=== PATIENT | male | born 1955 | race Caucasian/White ===

== ENCOUNTER 2023-08-23 09:55 | Outpatient (OUT) | payer MEDICARE, SELFPAY ==
[2023-08-24 14:10] LABS: IgG, Subclass 1 882 mg/dL (248-810); IgG, Subclass 2 364 mg/dL (130-555); IgG, Subclass 3 73 mg/dL (15-102); IgG, Subclass 4 47 mg/dL (2-96); Immunoglobulin G, Qn, Serum 1589 mg/dL (603-1613)
== END 2023-08-23 09:56 | disposition home or self-care (01) ==
PROVIDERS: PCP Internal Medicine
DX: K74.60 Unspecified cirrhosis of liver (principal)
CPT/HCPCS: 36415; 81596; 82784; 82787

== ENCOUNTER 2023-09-12 07:36 | Outpatient (OUT) | payer MEDICARE, SELFPAY ==
--- NOTE | 2023-09-12 07:38 | MR_ITS ---
The [address] [address] Patient Name: LOYD BLANDON MRN: [facility]:[id number] date: 1955 Sex: M Assigned Patient Location: MRI Current Patient Location: MRI Accession/Order Number: [id number] Exam Date: 09/12/2023 08:17 Report Date: 09/12/2023 11:15 At the request of: WARD ESPARZA Procedure: MR head/brain wo con EXAMINATION: MR head/brain wo con HISTORY: Episodic Altered Awareness R40.4, Confusion R41.0 COMPARISON: No relevant comparison available. TECHNIQUE: A variety of imaging planes and parameters were utilized for visualization of suspected pathology. Images were performed without contrast. FINDINGS: CEREBRUM: Prominent T2 hyperintensities within the periventricular and subcortical deep white matter bilaterally favoring chronic small vessel ischemic changes. No edema, hemorrhage, mass, acute infarction, or inappropriate atrophy. CEREBELLUM: No edema, hemorrhage, mass, acute infarction, or inappropriate atrophy. BRAINSTEM: No edema, hemorrhage, mass, acute infarction, or inappropriate atrophy. CSF SPACES: Ventricles, cisterns, and sulci are appropriate for age. No hydrocephalus, subarachnoid hemorrhage, or mass. SKULL: No mass or other significant visible lesion. SINUSES: Limited views demonstrate no significant mucosal thickening or fluid. ORBITS: Limited views are unremarkable. OTHER: Negative. MR/MR head/brain wo con IMPRESSION: 1. Age consistent atrophy and prominent chronic small vessel ischemic changes, likely age related. 2. No mass, infarction, or other specific findings to account for patient's symptoms. Electronically authenticated by: WARD FERRER Date: 09/12/2023 11:15
--- OUTSIDE RECORDS SUMMARY | 2023-09-12 07:38 | XMS_ITS | CCD ---
Author Organization [facility] CliniSyme Care Team Providers Care Sea Foam Kiss Maker Name Role Phone CHEMA, TANISHA Unavailable Unavailable TEODORA, ROYCE Unavailable Unavailable CHEMA, TANISHA Unavailable Unavailable COY BLANCHARD Unavailable Unavailable CHEMA, TANISHA Unavailable Unavailable CHEMA, TANISHA Unavailable Unavailable CHEMA, TANISHA Unavailable Unavailable MD Lex Carroll Attending Provider JUDITH Delgado Primary Care Provider Loran Ortega Unavailable TALA Ortega Attending Provider JUDITH Delgado Primary Care Provider TALA Ortega Attending Provider Rusty Delgado MD Unavailable Rusty Delgado MD Primary Care Provider [phone] MD Minh Griffith Attending Provider [phone] DO Janneth Villegas Attending Provider [phone] JUDITH Delgado Primary Care Provider TALA Ortega Attending Provider MD Minh Griffith Attending Provider DO Janneth Villegas Attending Provider RUSTY DELGADO Primary Care Physician Janneth Villegas H Referring Unavailable Jourdan ARRIAZA Attending Unavailable Janneth Villegas Admitting Unavailable Janneth Villegas Attending Unavailable Rusty Delgado Primary Care Unavailable Lex Carroll Admitting Unavailable Lex Carroll Attending Unavailable Rusty Delgado Primary Care Unavailable Lex Carroll Admitting Unavailable Lex Carroll Attending Unavailable Lamont Delgadoel Primary Care Unavailable Lamont Delgadoel Primary Care Unavailable Lorna Ortega Admitting Unavailable ScLorna person Attending Unavailable DelgadoLamontel Primary Care Unavailable ScLorna person Admitting Unavailable ScLorna person Attending Unavailable DannyLamontel Primary Care Unavailable ScLorna person Admitting Unavailable ScLorna person Attending Unavailable Lex Carroll Attending Unavailable DelgadoLamontel Primary Care Unavailable Lex Carroll Admitting Unavailable Itzkovick, Janneth Admitting Unavailable Itdaphne, Janneth Attending Unavailable DelgadoLamontel Primary Care Unavailable Minh Griffith Admitting UnavailMinh Romero Attending Unavailsaleem e DelgadoLamontel Primary Care Unavailable ARIAS JESUS Attending Unavailable ANN MARIE, ARIAS Referring Unavailable ANN MARIE, ARIAS Attending Unavailable JESUS, ARIAS Admitting Unavailable ITZCATALINA, JANNETH H Attending Unavailable LORNA ORTEGA Referring Unavailable ITZKOVICK, JANNETH H Attending Unavailable ITZKOVICK, JANNETH H Attending Unavailable ITDAPHNE, JANNETH H Attending Unavailable FABY ECHEVARRIA Attending Unavailable WARD ESPARZA Attending Unavailable FABY ECHEVARRIA Referring Unavailable RUSTY DELGADO Attending Unavailable RUSTY DELGADO Referring Unavailable RUSTY DELGADO Attending Unavailable WARD ESPARZA Referring Unavailable Allergies Allergy Classification Reported Allergen(s) Allergy Type Date of Onset Reaction(s) Facility (1 source) sulfamethoxazole / trimethoprim; Translations: [SULFAMETHOXAZOLE-TR IMETHOPRIM] Drug Allergy 5 [facility] Repository Medications Current Medications Medication Drug Class(es) Dates Sig (Normalized) Sig (Original) atropine sulfate 0.025 mg / diphenoxylate hydrochloride 2.5 mg oral tablet (13 sources) Anticholinergic, Cholinergic Muscarinic Antagonist, Antidiarrheal Start: 07-05-2023 take 1 tablet by mouth three times daily Diphenoxylate-At ropine Active 1 TAB PO Three times daily July 05, 2023 12:00am Start: 06-02-2023 End: 06-13-2023 take 1 tablet by mouth three times daily as needed Diphenoxylate-Atropine Discontinued 1 TAB PO Three times daily June 02, 2023 1:00am June 13, 2023 12:59pm FreeTextSi tablet as needed Orally Four times a day; Note: Source Status: Taking; Refills: 11; Qty: 120 Tablet; Provider: Shannon Syed Start: 02-09-2023 take 1 tablet by vald th every six hours Diphenoxylate-Atropine 2.5-0.025 MG 1 tablet as needed Orally Four times a day for 30 days Jan, Active take 1 tablet by vlad th three times daily as needed for diarrhea diphenoxylate-atropine (Lomotil) 2.5-0.025 MG tablet Take 1 tablet by mouth 3 (three) times a day as needed for diarrhea 0 Active baclofen 20 mg oral tablet (1 source) gamma-Aminobutyric Acid-ergic Agonist Start: 07-05-2023 take 20 mg by mouth once daily at bedtime Baclofen Active 20 MG PO Daily at bedtime July 05, 2023 12:00am calcium carbonate 1250 mg / cholecalciferol 125 unt oral tablet (2 sources) Vitamin D Start: 06-02-2023 take 1 tablet by mouth once daily Calcium Carbonate-Vitami n D3 Active 1 TAB PO Daily June 02, 2023 1:00am dicyclomine hydrochloride 20 mg oral tablet (8 sources) Anticholinergic Start: 11-10-2022 End: 05-18-2023 take 1 tablet by mouth every eight hours Dicyclomine HCl 20 MG 1 tablet Orally Three times a day for 90 days Mar, Active esomeprazole 40 mg delayed release oral capsule (14 sources) Proton Pump Inhibitor Start: 06-02-2023 Esomeprazole Magnesium Active 40 MG PO Twice daily June 02, 2023 1:00am FreeTextSi capsule 30 minutes before morning meal & 1 capsule in the evening Orally twice a day; Note: Source Status: Taking; Refills: 12; Provider: Shannon Syed Start: 09-28-2022 Esomeprazole M agnesium 40 MG 1 capsule 30 minutes before morning meal & 1 capsule in the evening Orally twice a day for 30 days Sep, Active famotidine 40 mg oral tablet (16 sources) Histamine-2 Receptor Antagonist Start: 06-02-2023 End: 07-05-2023 take 1 tablet by mouth twice daily Famotidine Active 40 MG PO Twice daily 60 July 05, 2023 9:29am FreeTextSi tablet Orally Twice a day; Note: Source Status: Taking; Refills: 5; Qty: 60 Tablet; Provider: Shannon Syed Start: 04-12-2023 take 1 tablet by vlad th in the morning famotidine (Pepcid) 40 MG tablet Take 40 mg by mouth in the morning and 40 mg before bedtime. 0 05/10/2023 Active Start: 11-10-2022 End: 05-18-2023 take 1 tablet by mouth at bedtime famotidine (Pepcid) 20 MG tablet Take 20 mg by mouth at bedtime. 0 11/10/2022 05/18/2023 Discontinued furosemide 40 mg oral tablet (11 sources) Loop Diuretic Start: 06-02-2023 take 1 tablet by mouth once daily in the morning Furosemide Active 40 MG PO Every morning June 02, 2023 1:00am FreeTextSi tablet Orally Once a day; Note: Source Status: Taking; Refills: 11; Provider: Shannon Syed Start: 04-12-2023 take 1 tablet by vlad th once daily furosemide (Lasix) 40 MG tablet TAKE 1 TABLET BY MOUTH EVERY DAY FOR 30 DAYS 0 05/10/2023 Active ibuprofen 800 mg oral tablet (2 sources) Nonsteroidal Anti-inflammatory Drug Start: 06-02-2023 take 800 mg by mouth three times daily Ibuprofen Active 800 MG PO Three times daily June 02, 2023 1:00am lansoprazole 30 mg delayed release oral capsule (1 source) Proton Pump Inhibitor Start: 07-05-2023 take 30 mg by mouth twice daily Lansoprazole Active 30 MG PO Twice daily 60 July 05, 2023 12:00am lisinopril 20 mg oral tablet (18 sources) Angiotensin Converting Enzyme Inhibitor Start: 09-19-2022 take 20 mg by mouth once daily in the morning Lisinopril Active 20 MG PO Every morning September 19, 2022 12:00am Multiple Vitamins-Minerals (Multi For Him) tablet (3 sources) Multiple Vitamins-Minerals (Multi For Him) tablet Daily. 0 Active Multivitamin (Daily Multi-Vitamin) tablet (2 sources) Start: 06-02-2023 take 1 tablet by mouth once daily Multivitamin (Daily Multi-Vitamin) tablet Active 1 TAB PO Daily June 02, 2023 1:00am Start: 06-02-2023 take 1 tablet by vlad th once daily Multivitamin (Daily Multi-Vitamin) tablet Active 1 TAB PO Daily June 02, 2023 12:00am ondansetron 4 mg oral tablet (2 sources) Serotonin-3 Receptor Antagonist Start: 07-05-2023 take 4 mg by mouth three times daily Ondansetron Hcl Active 4 MG PO Three times daily July 05, 2023 9:32am Start: 07-05-2023 End: 07-05-2023 take 4 mg by mouth once daily Ondansetron Hcl Disconti nued 4 MG PO Daily July 05, 2023 12:00am July 05, 2023 9:32am spironolactone 100 mg oral tablet (11 sources) Aldosterone Antagonist Start: 06-02-2023 take 1 tablet by mouth once daily in the morning Spironolactone Active 100 MG PO Every morning June 02, 2023 1:00am FreeTextSi tablet Orally Once a day; Note: Source Status: Taking; Refills: 11; Provider: Shannon Syed Start: 04-12-2023 take 1 tablet by vlad th once daily spironolactone (Aldactone) 100 MG tablet TAKE 1 TABLET BY MOUTH EVERY DAY FOR 30 DAYS 0 05/10/2023 Active Completed/Discontinued Medications Medication Drug Class(es) Dates Sig (Normalized) Sig (Original) acetaminophen 325 mg / oxyCODONE hydrochloride 5 mg oral tablet (1 source) Opioid Agonist Start: 06-13-2023 End: 07-05-2023 take 1 tablet by mouth every six hours Oxycodone-Acetami nophen (Percocet) 5-325 mg tablet Discontinued 1 TAB PO Q6H 28 7 June 13, 2023 July 05, 2023 9:01am [id number] 333-133-5 MG per tablet (1 source) End: 05-18-2023 calcium-magnesium -zinc 333-133-5 MG per tablet Take 1 tablet by mouth in the morning and 1 tablet at noon and 1 tablet in the evening. Take with meals. 0 05/18/2023 Discontinued hydroCHLOROthiazide 25 mg / triamterene 37.5 mg oral capsule (8 sources) Potassium-spari ng Diuretic, Thiazide Diuretic Start: 06-13-2023 End: 07-05-2023 Triamterene-Dane chlorothiazid Discontinued CAP June 13, 2023 1:00am July 05, 2023 9:01am Start: 09-19-2022 End: 06-02-2023 Triamterene-Hydrochlorothiaz id Discontinued 1 CAP PO As Directed September 19, 2022 12:00am June 02, 2023 11:15am End: 05-18-2023 take 1 tablet by mouth in the morning triamterene-hydrochlorothiazide (Maxzide -25) 37.5-25 MG tablet Take 1 tablet by mouth in the morning. 0 05/18/2023 Discontinued metoprolol tartrate 25 mg oral tablet (9 sources) beta-Adrenergic Nikunj Start: 09-19-2022 End: 06-02-2023 take 25 mg by mouth twice daily Metoprolol Tartrate Discontinued 25 MG PO Twice daily September 19, 2022 12:00am June 02, 2023 11:11am Metoprolol Tartr ate Active omeprazole 40 mg delayed release oral capsule (12 sources) Proton Pump Inhibitor Start: 09-21-2022 End: 06-02-2023 take 40 mg by mouth twice daily Omeprazole Discontinued 40 MG PO Twice daily 60 September 21, 2022 12:00am June 02, 2023 11:13am Start: 09-19-2022 End: 09-21-2022 take 40 mg by mouth once daily Omeprazole Discontinued 40 MG PO Daily September 19, 2022 12:00am September 21, 2022 8:23am Problems Active Problems Problem Classification Problem Date Documented Da te Episodic/Chronic Abdominal pain (4 sources) Lower abdominal pain, unspecified; Translations: [Epigastric pain] Onset: 4 Episodic Anal and rectal conditions (6 sources) Anal fissure; Translations: [Anal fissure, unspecified] Onset: 4 05-18-2023 Episodic Cataract (12 sources) Nuclear senile cataract; Translations: [Age-related nuclear cataract, bilateral] Onset: 3 11-17-2022 Chronic Coagulation and hemorrhagic disorders (12 sources) Thrombocytopenic disorder; Translations: [Thrombocytopenia, unspecified] Onset: 3 11-17-2022 Chronic Deficiency and other anemia (2 sources) Anemia, unspecified; Translations: [Anemia, unspecified] Onset: 4 Episodic Diabetes mellitus without complication (12 sources) Type 2 diabetes mellitus without complication; Translations: [Type 2 diabetes mellitus without complications] Onset: 3 11-17-2022 Chronic Disorders of lipid metabolism (12 sources) Dyslipidemia; Translations: [Hyperlipidemia, unspecified] Onset: 3 11-17-2022 Chronic Esophageal disorders (20 sources) Recinos's esophagus; 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] Onset: 3 Chronic Essential hypertension (15 sources) Benign essential hypertension; Translations: [Essential (primary) hypertension] Onset: 3 Resolved: 3 11-17-2022 Chronic Hemorrhoids (1 source) Internal hemorrhoids grade II; Translations: [Second degree hemorrhoids] 06-13-2023 Episodic Nausea and vomiting (11 sources) Nausea; Translations: [Nausea] Onset: 4 Episodic Osteoporosis (3 sources) Osteoporosis; Translations: [Age-related osteoporosis without current pathological fracture] Onset: 3 03-21-2023 Chronic Other and unspecified benign neoplasm (12 sources) History of polyp of colon; Translations: [Personal history of colonic polyps] Onset: 3 03-21-2023 Episodic Other connective tissue disease (3 sources) Muscle pain; Translations: [Myalgia, unspecified site] Onset: 3 03-16-2023 Episodic Other disorders of stomach and duodenum (1 source) Disorder of function of stomach; Translations: [Disease of stomach and duodenum, unspecified] 07-05-2023 Episodic Other disorders of stomach and duodenum (1 source) Disease of stomach and duodenum, unspecified; Translations: [Dyspepsia and other specified disorders of function of stomach] 07-05-2023 Episodic Other eye disorders (12 sources) 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; 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, left eye] Onset: 3 11-17-2022 Chronic Other gastrointestinal disorders (9 sources) H/O: gastrointestinal disease; Translations: [Personal history of other diseases of the digestive system] Episodic Other gastrointestinal disorders (1 source) Diarrhea, unspecified Episodic Other gastrointestinal disorders (6 sources) Flatulence, eructation and gas pain; Translations: [Abdominal distension (gaseous)] Episodic Other gastrointestinal disorders (6 sources) Loose stool; Translations: [Other fecal abnormalities] Episodic Other gastrointestinal disorders (3 sources) Abdominal distension (gaseous); Translations: [Abdominal distension (gaseous)] Onset: 4 Episodic Other liver diseases (12 sources) Steatosis of liver; Translations: [Fatty (change of) liver, not elsewhere classified] Onset: 3 11-17-2022 Chronic Other liver diseases (2 sources) Fatty (change of) liver, not elsewhere classified; Translations: [Fatty (change of) liver, not elsewhere classified] Onset: 3 Chronic Other liver diseases (8 sources) Cirrhosis of liver; Translations: [Unspecified cirrhosis of liver] 07-05-2023 Chronic Other liver diseases (6 sources) Unspecified cirrhosis of liver; Translations: [Cirrhosis of liver without mention of alcohol] Onset: 3 Chronic Other nutritional; endocrine; and metabolic disorders (12 sources) Metabolic syndrome X; Translations: [Metabolic syndrome] Onset: 3 11-17-2022 Chronic Residual codes; unclassified (6 sources) Edema; Translations: [Localized edema] Episodic Residual codes; unclassified (6 sources) Early satiety; Translations: [Early satiety] Episodic Residual codes; unclassified (1 source) Localized edema Episodic Residual codes; unclassified (3 sources) Early satiety; Translations: [Early satiety] Onset: 4 Episodic Retinal detachments; defects; vascular occlusion; and retinopathy (12 sources) Epiretinal membrane; 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, bilateral] Onset: 3 11-17-2022 Chronic Unclassified (1 source) Unknown / UNK(Unknown) Onset: 7 Unclassified (1 source) Second degree hemorrhoids; Translations: [Second degree hemorrhoids] Onset: 4 Unclassified (1 source) Encounter for preprocedural laboratory examination; Translations: [Encounter for preprocedural laboratory examination] Onset: 4 Unclassified (1 source) Recinos's esophagus without dysplasia; 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] Onset: 3 Past or Other Problems Problem Classification Problem Date Documented Da te Episodic/Chronic Abdominal hernia (3 sources) Incisional hernia; Translations: [Incisional hernia without obstruction or gangrene] Onset: 12-06-2012 03-21-2023 Episodic Other connective tissue disease (1 source) Pain in left toe(s); Translations: [Pain in left toe(s)] Onset: 01-04-2017 Episodic Other screening for suspected conditions (not mental disorders or infectious disease) (1 source) Other specified abnormal findings of blood chemistry; Translations: [Other specified abnormal findings of blood chemistry] Onset: 11-03-2022 Episodic Residual codes; unclassified (12 sources) Insomnia; Translations: [Insomnia, unspecified] Onset: 11-17-2022 11-17-2022 Episodic Results Test Name Value Interpretation Reference Range Facility Orders Onlyon 08-28-2023 Orders Only [id number] Ambrosio Blandon 1955 M Date Provider Department Center 08/28/2023 [id number], HISTORICAL [facility] No family history on file [facility] Orders Onlyon 08-24-2023 Orders Only [id number] Ambrosio Blandon 1955 M Date Provider Department Center 08/24/2023 [id number], HISTORICAL [facility] No family history on file [facility] 29on 08-09-2023 29 Addended by: ARIAS JESUS on: 08/09/2023 12:50 PM Modules accepted: Orders Normal [facility] Orders Onlyon 08-09-2023 Orders Only [id number] Ambrosio Blandon 1955 M Date Provider Department Center 08/09/2023 JASON COFFEY [facility] No family history on file [facility] Office Visiton 08-07-2023 Follow-up visit [id number] Ambrosio Blandon 1955 M Date Provider Department Center 08/07/2023 [id number] JESUS [facility] No family history on file Level of Service:81828 [place] OFFICE/OUTPATIENT NEW LOW MDM 30 MINUTES (GC) Reason for Visit and Comments: New Patient [632] Weight Loss [943790] - 30 pound weight loss since . Pt recently had surgery for 3 polyps removed and 1 hemorrhoid removal. Dyskenisia of esophgaus [Other] Nausea [70] Vomiting [120] - Pt has a urge to but does not vomit. Normal [facility] Mayito 06-13-2023 L Specimen: [id number] Received: 06/14/23 Status: HUSAM Coffey Num: [id number] Spec Type: Surgical Subm Dr: Janneth Villegas DO Tissues: A Hemorrhoids (HEMORRHOID 9:00) Procedures: HE, Gross/Micro L3 Age/ Patient Sex Location Account Attending Physician Charles Blandon 67/M [place] [id number] Janneth Villegas DO SPEC NUM: [id number] RECD: 06/14/23 STATUS: HUSAM COFFEY NUM: [id number] WEN: 06/13/[address]: Janneth Villegas DO ENTERED: 06/14/[address]: SPEC TYPE: Surgical DEPT: S ORDERED: HE, Gross/Micro L3 ORDERED: HE, Gross/Micro L3 Pathological Diagnosis Hemorrhoid at 9:00, resection: Features consistent with hemorrhoid. Clinical Information Rectal pain, anal fissure Gross Description Received in formalin labeled with the patient's name, date of and hemorrhoid at 9:00 are 2 pink-anderson soft tissue fragments, 1.9 x 1.2 x 0.4 cm and 3 x 2.5 x 1.5 cm. Both fragments demonstrate pink-anderson glistening mucosa. The largest fragment demonstrates what appears to be a discrete transition to more bazzi velvety mucosa. There are no suspicious surface lesions identified. Sectioning demonstrates soft cut surfaces with diffusely dilated blood-filled spaces. Grain Blender sections are submitted in 1 cassette as follows: A1 - 1 customer service representative section from each fragment to demonstrate change in mucosal types of the largest fragment CPT Codes 66161 Specimen: [id number] Received: 06/14/23 Status: HUSAM Coffey Num: [id number] Spec Type: Surgical Subm Dr: Janneth Villegas DO Tissues: A Hemorrhoids (HEMORRHOID 9:00) Procedures: Clark BARBOSA/Andi L3 Patient: Charles Blandon [id number] (Continued) Signed (signature on file) Linette Bean MD 06/27/232238 Normal [facility] Basic Metabolic Panelon 02 Anion gap [Moles/Vol] 13.5 mmol/L Normal 6.0-15.0 [facility] Comment on above: Performed By: #### C BC, BMP #### [facility] [address] [place] [address] [place] Calcium [Mass/Vol] 8.6 mg/dL Normal 8.6-10.3 [facility] Comment on above: Result Comment: PERF ORMED BY: [place] [address] PATHOLOGIST STONE BREAKER CLARK LEARY M.D. Performed By: #### C BC, BMP #### [facility] [address] [place] [address] [place] Chloride [Moles/Vol] 96 mmol/L Low 98-107 [facility] Comment on above: Performed By: #### C BC, BMP #### [facility] [address] [place] [address] [place] CO2 [Moles/Vol] 27.3 mmol/L Normal 21.0-31.0 [facility] Comment on above: Performed By: #### C BC, BMP #### [facility] [address] [place] [address] [place] Creatinine [Mass/Vol] 1.07 mg/dL Normal 0.70-1.30 [facility] Comment on above: Performed By: #### C BC, BMP #### [facility] [address] [place] [address] [place] GFR/1.73 sq M.predicted MDRD (S/P/Bld) [Vol rate/Area] mL/min/{1.73_m2} Normal [facility] Comment on above: Performed By: #### C BC, BMP #### [facility] [address] [place] [address] [place] Glucose [Mass/Vol] 132 mg/dL High 70-100 [facility] Comment on above: Result Comment: [place] Glucose Reference Range is dependent on time and content of last meal. Glucose of more than 200 mg/dL in a nonstressed, ambulatory subject supports the diagnosis of Diabetes Mellitus. ADA recommended reference range Performed By: #### C BC, BMP #### [facility] [address] Potassium [Moles/Vol] 4.8 mmol/L Normal 3.5-5.1 [facility] Comment on above: Performed By: #### C PEGGY, BMP #### [facility] [address] Sodium [Moles/Vol] 132 mmol/L Low 136-145 [facility] Comment on above: Performed By: #### C PEGGY, BMP #### [facility] [address] Urea nitrogen [Mass/Vol] 12 mg/dL Normal 7-25 [facility] Comment on above: Performed By: #### C PEGGY, BMP #### [facility] [address] Basophils Auto (Bld) [#/Vol] Ordered By: Janneth Villegas on 06-02-2023 Basophils (Bld) [#/Vol] 0.0 10*3/uL 0.0-0.2 [facility] Basophils/100 WBC Auto (Bld) Ordered By: Janneth Villegas on 06-02-2023 Basophils/100 WBC (Bld) 0.7 % . [facility] Calcium [Mass/volume] in Ser um or PlasmaOrdered By: Janneth Villegas on 06-02-2023 Calcium [Mass/Vol] 8.6 mg/dL 8.6-10.3 [facility] Carbon dioxide, total [Moles /volume] in Serum or PlasmaOrdered By: Janneth Villegas on 06-02-2023 CO2 [Moles/Vol] 27.3 mmol/L 21.0-31.0 [facility] Chloride [Moles/volume] in S mateo or PlasmaOrdered By: Janneth Villegas on 06-02-2023 Chloride [Moles/Vol] 96 mmol/L 98-107 [facility] Complete Blood Count Auto Di ffon 06-02-2023 Basophils (Bld) [#/Vol] 0.0 10*3/uL Normal 0.0-0.2 [facility] Comment on above: Result Comment: PERF ORMED BY: [place] [address] PATHOLOGIST STONE BREAKER CLARK LEARY M.D. Performed By: #### C BC, BMP #### [address] Basophils/100 WBC (Bld) 0.7 % Normal . [facility] Comment on above: Performed By: #### C BC, BMP #### [address] Eosinophils (Bld) [#/Vol] 0.1 10*3/uL Normal 0.0-0.45 [facility] Comment on above: Performed By: #### C BC, BMP #### [address] Eosinophils/100 WBC (Bld) 1.9 % Normal . [facility] Comment on above: Performed By: #### C BC, BMP #### [address] Erythrocyte distribution width (RBC) [Ratio] 13.8 % Normal 12.0-14.8 [facility] Comment on above: Performed By: #### C BC, BMP #### [address] Hematocrit (Bld) [Volume fraction] 35.5 % Low 38.8-50.0 [facility] Comment on above: Performed By: #### C BC, BMP #### [address] Hemoglobin (Bld) [Mass/Vol] 12.5 g/dL Low 13.0-17.0 [facility] Comment on above: Performed By: #### C BC, BMP #### [address] Lymphocytes (Bld) [#/Vol] 0.7 10*3/uL Low 1.00-4.8 [facility] Comment on above: Performed By: #### C BC, BMP #### [address] Lymphocytes/100 WBC (Bld) 13.2 % Normal . [facility] Comment on above: Performed By: #### C BC, BMP #### [address] MCH (RBC) [Entitic mass] 36.2 pg High 27.5-35.2 [facility] Comment on above: Performed By: #### C BC, BMP #### [address] MCV (RBC) [Entitic vol] 102.9 fL High 83.5-101 [facility] Comment on above: Performed By: #### C BC, BMP #### [address] Mean Corpuscular HGB Conc 35.2 g/dL Normal 32.5-35.6 [facility] Comment on above: Performed By: #### C BC, BMP #### [address] Monocytes (Bld) [#/Vol] 0.9 10*3/uL High 0.0-0.8 [facility] Comment on above: Performed By: #### C BC, BMP #### [address] Monocytes/100 WBC (Bld) 15.7 % Normal . [facility] Comment on above: Performed By: #### C BC, BMP #### [address] Neutrophils (Bld) [#/Vol] 3.9 10*3/uL Normal 1.8-7.7 [facility] Comment on above: Performed By: #### C BC, BMP #### [address] Neutrophils/100 WBC (Bld) 68.5 % Normal . [facility] Comment on above: Performed By: #### C BC, BMP #### [address] NRBC% 0.1 /100{WBC} Normal 0-0.5 [facility] Comment on above: Performed By: #### C PEGGY, BMP #### [facility] [address] Platelet mean volume (Bld) [Entitic vol] 8.1 fL Normal 6.6-10.1 [facility] Comment on above: Performed By: #### C PEGGY, BMP #### [facility] [address] Platelets (Bld) [#/Vol] 153 10*3/uL Normal 150-450 [facility] Comment on above: Performed By: #### C PEGGY, BMP #### [facility] [address] RBC (Bld) [#/Vol] 3.45 10*6/uL Low 3.90-5.60 [facility] Comment on above: Performed By: #### C PEGGY, BMP #### [facility] [address] WBC (Bld) [#/Vol] 5.7 10*3/uL Normal 4.1-10.5 [facility] Comment on above: Performed By: #### C PEGGY, BMP #### [address] Creatinine [Mass/volume] in Serum or PlasmaOrdered By: Janneth Villegas on 06-02-2023 Creatinine [Mass/Vol] 1.07 mg/dL 0.70-1.30 [facility] ECG 12 lead ECGon 06-02-2023 ECG 12 lead ECG [facility] [place] [address] [place] [address] Electrocardiograph Report Signed Patient: Charles Blandon MR#: [id number] 66 : 1955 Acct:[id number] Age/Sex: 67 / M ADM Date: 06/02/23 Loc: Room: Type: [facility] Attending Dr: Janneth Villegas DO Ordering Provider: Janneth Villegas DO Date of Service: 06/02/23 ECG/ECG 12 lead ECG: surgery 06/13/23 Copies to: Test Reason : Blood Pressure : / mmHG Vent. Rate : 090 BPM Atrial Rate : 090 BPM P-R Int : 150 ms QRS Dur : 090 ms QT Int : 390 ms P-R-T Axes : 049 063 041 degrees QTc Int : 477 ms Normal sinus rhythm with sinus arrhythmia Normal ECG No previous ECGs available Confirmed by Gurpreet Dyson ([id number]) on 06/02/2023 6:21:10 PM Referred By: DANNY VILLEGAS Electronically Signed By:Gurpreet Dyson Transcribed By: MUS Signed By Gurpreet Dyson MD 06/02/23 182 Normal [facility] Eosinophils Auto (Bld) [#/Vo l]Ordered By: Janneth Villegas on 06-02-2023 Eosinophils (Bld) [#/Vol] 0.1 10*3/uL 0.0-0.45 [facility] Eosinophils/100 WBC Auto (Bl d)Ordered By: Janneth Villegas on 06-02-2023 Eosinophils/100 WBC (Bld) 1.9 % . [facility] Erythrocyte distribution wid th Auto (RBC) [Ratio]Ordered By: Janneth Villegas on 06-02-2023 Erythrocyte distribution width (RBC) [Ratio] 13.8 % 12.0-14.8 [facility] Glucose [Mass/volume] in Ser um or PlasmaOrdered By: Janneth Villegas on 06-02-2023 Glucose [Mass/Vol] 132 mg/dL 70-100 [facility] Comment on above: ADA recommended refe rence rangeRandom Glucose Reference Range is dependent on time and content of last meal. Glucose of more than 200 mg/dL in a nonstressed, ambulatory subject supports the diagnosis of Diabetes Mellitus. Hematocrit Auto (Bld) [Volum e fraction]Ordered By: Janneth Villegas on 06-02-2023 Hematocrit (Bld) [Volume fraction] 35.5 % 38.8-50.0 [facility] Hemoglobin [Mass/volume] in BloodOrdered By: Janneth Villegas on 06-02-2023 Hemoglobin (Bld) [Mass/Vol] 12.5 g/dL 13.0-17.0 [facility] Leukocytes [#/volume] correc jamila for nucleated erythrocytes in Blood by Automated counOrdered By: Janneth Villegas on 06-02-2023 WBC corrected for nucl RBC Auto (Bld) [#/Vol] 5.7 10*3/uL 4.1-10.5 [facility] Lymphocytes Auto (Bld) [#/Vo l]Ordered By: Janneth Villegas on 06-02-2023 Lymphocytes (Bld) [#/Vol] 0.7 10*3/uL 1.00-4.8 [facility] Lymphocytes/100 WBC Auto (Bl d)Ordered By: Janneth Villegas on 06-02-2023 Lymphocytes/100 WBC (Bld) 13.2 % . [facility] MCH Auto (RBC) [Entitic mass ]Ordered By: Janneth Villegas on 06-02-2023 MCH (RBC) [Entitic mass] 36.2 pg 27.5-35.2 [facility] MCHC Auto (RBC) [Mass/Vol]Or dered By: Janneth Villegas on 06-02-2023 MCHC (RBC) [Mass/Vol] 35.2 g/dL 32.5-35.6 [facility] MCV Auto (RBC) [Entitic vol] Ordered By: Janneth Villegas on 06-02-2023 MCV (RBC) [Entitic vol] 102.9 fL 83.5-101 [facility] Monocytes Auto (Bld) [#/Vol] Ordered By: Janneth Villegas on 06-02-2023 Monocytes (Bld) [#/Vol] 0.9 10*3/uL 0.0-0.8 [facility] Monocytes/100 WBC Auto (Bld) Ordered By: Janneth Villegas on 06-02-2023 Monocytes/100 WBC (Bld) 15.7 % . [facility] Neutrophils Auto (Bld) [#/Vo l]Ordered By: Janneth Villegas on 06-02-2023 Neutrophils (Bld) [#/Vol] 3.9 10*3/uL 1.8-7.7 [facility] Neutrophils/100 WBC Auto (Bl d)Ordered By: Janneth Villegas on 06-02-2023 Neutrophils/100 WBC (Bld) 68.5 % . [facility] No Panel InformationOrdered By: Janneth Villegas on 06-02-2023 Estimated GFR (CKD-EPI) > 60.0 mL/Min [facility] Creatinine Clearance (Chem N/A [facility] Nucleated erythrocytes [Pres ence] in Blood by Automated countOrdered By: Janneth Villegas on 06-02-2023 Nucleated RBC Auto Ql (Bld) 0.1 /100{WBC} 0-0.5 [facility] Platelet mean volume Auto (B ld) [Entitic vol]Ordered By: Janneth Villegas on 06-02-2023 Platelet mean volume (Bld) [Entitic vol] 8.1 fL 6.6-10.1 [facility] Platelets Auto (Bld) [#/Vol] Ordered By: Janneth Villegas on 06-02-2023 Platelets (Bld) [#/Vol] 153 10*3/uL 150-450 [facility] Potassium [Moles/volume] in Serum or PlasmaOrdered By: Janneth Villegas on 06-02-2023 Potassium [Moles/Vol] 4.8 mmol/L 3.5-5.1 [facility] RBC Auto (Bld) [#/Vol]Ordere d By: Janneth Villegas on 06-02-2023 RBC (Bld) [#/Vol] 3.45 10*6/uL 3.90-5.60 [facility] Serum or plasma anion gap de terminationOrdered By: Janneth Villegas on 06-02-2023 Anion gap [Moles/Vol] 13.5 mmol/L 6.0-15.0 [facility] Sodium [Moles/volume] in Ser um or PlasmaOrdered By: Janneth Villegas on 06-02-2023 Sodium [Moles/Vol] 132 mmol/L 136-145 [facility] Urea nitrogen [Mass/volume] in Serum or PlasmaOrdered By: Janneth Villegas on 06-02-2023 Urea nitrogen [Mass/Vol] 12 mg/dL 7-25 [facility] WBC Auto (Bld) [#/Vol]Ordere d By: Janneth Villegas on 06-02-2023 WBC (Bld) [#/Vol] 5.7 10*3/uL 4.1-10.5 [facility] [place] gastric emptying studyon 04-26-2023 [place] gastric emptying study [facility] [place] [address] Nuclear Medicine Report Signed Patient: Charles Blandon MR#: [id number] 66 : 1955 Acct:[id number] Age/Sex: 67 / M ADM Date: 04/26/23 Loc: [place] Room: Type: [facility] Attending Dr: Lorna Ortega APRN Copies to: Morales Alvarez Jr, DO Ryan M Scovanner, APRN Ordering Provider: Lorna Ortega APRN Date of Service: 04/26/23 [facility] gastric emptying study: Nausea;Early satiety GASTRIC EMPTYING STUDY: CLINICAL HISTORY: Worsening gagging for one year and nausea. FINDINGS: Following the oral ingestion of 1 mCi Tc 99m labeled sulfur colloid mixed with oatmeal, anterior imaging of the abdomen was performed out to 90 minutes. There is appropriate emptying of the stomach on the static and dynamic images. A time/activity curve was generated. The T 1/2 for gastric emptying is 11 minutes. [facility] gastric emptying study IMPRESSION: NO SCINTIGRAPHIC EVIDENCE OF GASTROPARESIS. Impression dictated by: Morales Alvarez Jr., D.O.04/26/2023 10:18 AM Dictation Location: [place] [address] Transcribed By: [facility] 04/26/23 1018 Dictated By: Morales Alvarez Jr, DO 04/26/23 1017 Signed By: 04/26/23 1018 Normal [facility] Albumin [Mass/volume] in Ser um or Plasma by Bromocresol green (BCG) dye binding methoOrdered By: Lorna Ortega on 04-12-2023 Albumin BCG dye [Mass/Vol] 3.0 g/dL 3.5-5.7 [facility] Bilirubin.total [Mass/volume ] in Serum or PlasmaOrdered By: Lorna Ortega on 04-12-2023 Bilirubin [Mass/Vol] 1.3 mg/dL 0.3-1.0 [facility] Comment on above: Samples from patient s who have taken Naproxen have shown spurious elevation in Total Bilirubin levels. A metabolite of Naproxen, O-desmethylnaproxen, has been shown to interfere with the Donato method for measuring Total Bilirubin. Calcium [Mass/volume] in Ser um or PlasmaOrdered By: Lorna Ortega on 04-12-2023 Calcium [Mass/Vol] 8.3 mg/dL 8.6-10.3 [facility] Carbon dioxide, total [Moles /volume] in Serum or PlasmaOrdered By: Lorna Ortega on 04-12-2023 CO2 [Moles/Vol] 27.3 mmol/L 21.0-31.0 [facility] Comprehensive Metabolic Pane mayito 04-12-2023 Albumin [Mass/Vol] 3.692145 g/dL Low 3.5-5.7 g/dL [facility] Other Bilirubin [Mass/Vol] 1.1930656 mg/dL High 0.3- 1.0 mg/dL [facility] Other Calcium [Mass/Vol] 8.1423368 mg/dL Low 8.6-10 .3 mg/dL [facility] Other CO2 [Moles/Vol] 27.19689819 mmol/L Normal 21.0-3 1.0 mmol/L [facility] Other Creatinine [Mass/Vol] 0.95806277 mg/dL Normal 0. 70-1.30 mg/dL [facility] Other Potassium [Moles/Vol] 5.70831165 mmol/L Normal 3 .5-5.1 mmol/L [facility] Other Protein [Mass/Vol] 6.441913 g/dL Low 6.4-8.9 g/dL [facility] Other Comprehensive Metabolic Panel 3.3 g/dL [facility]leg[facility] Other Albumin [Mass/Vol] 3.0 g/dL Low 3.5-5.7 [facility] Comment on above: Order Comment: Reaso n for Exam Cirrhosis of liver Performed By: #### C MP ####[place] [id number] [address] Anion gap [Moles/Vol] 9.8 mmol/L Normal 6.0-15.0 [facility] Comment on above: Order Comment: Reaso n for Exam Cirrhosis of liver Performed By: #### C MP ####[place] [id number] [facility] Bilirubin [Mass/Vol] 1.3 mg/dL High 0.3-1.0 [facility] Comment on above: Order Comment: Reaso n for Exam Cirrhosis of liver Result Comment: Samp les from patients who have taken Naproxen have shown spurious elevation in Total Bilirubin levels. A metabolite of Naproxen, O-desmethylnaproxen, has been shown to interfere with the Jendrassik-Grof method for measuring Total Bilirubin. Performed By: #### C MP ####[place] [id number] [facility] Calcium [Mass/Vol] 8.3 mg/dL Low 8.6-10.3 [facility] Comment on above: Order Comment: Reaso n for Exam Cirrhosis of liver Performed By: #### C MP ####[place] [id number] [facility] CO2 [Moles/Vol] 27.3 mmol/L Normal 21.0-31.0 [facility] Comment on above: Order Comment: Reaso n for Exam Cirrhosis of liver Performed By: #### C MP ####[address] [address] [facility] Creatinine [Mass/Vol] 0.81 mg/dL Normal 0.70-1.30 [facility] Comment on above: Order Comment: Reaso n for Exam Cirrhosis of liver Performed By: #### C MP ####[address] [address] [facility] GFR/1.73 sq M.predicted MDRD (S/P/Bld) [Vol rate/Area] mL/min/{1.73_m2} Normal [facility] Other Comment on above: Order Comment: Reaso n for Exam Cirrhosis of liver Performed By: #### C MP ####[address] [address] [facility] Globulin (S) [Mass/Vol] 3.3 g/dL Normal [facility] Comment on above: Order Comment: Reaso n for Exam Cirrhosis of liver Performed By: #### C MP ####[address] [address] [facility] Potassium [Moles/Vol] 5.1 mmol/L Normal 3.5-5.1 [facility] Comment on above: Order Comment: Reaso n for Exam Cirrhosis of liver Performed By: #### C MP ####[address] [address] [facility] Protein [Mass/Vol] 6.3 g/dL Low 6.4-8.9 [facility] Comment on above: Order Comment: Reaso n for Exam Cirrhosis of liver Performed By: #### C MP ####[address] [address] [facility] Comprehensive Metabolic Pane lOrdered By: Lorna Ortega on 04-12-2023 Albumin/Globulin [Mass ratio] 0.9 {ratio} Normal [facility] Comment on above: Order Comment: Reaso n for Exam Cirrhosis of liver Performed By: #### C MP ####[address] [address] [facility] ALP [Catalytic activity/Vol] 158 U/L High 34-104 [facility] Comment on above: Order Comment: Reaso n for Exam Cirrhosis of liver Result Comment: PERF ORMED BY: [facility] [address] [place] [id number] PATHOLOGIST STONE BREAKER CLARK LEARY M.D. Performed By: #### C MP ####[place] [address] [place] [address]70 [facility] ALT [Catalytic activity/Vol] 35 U/L Normal 7-52 [facility] Comment on above: Order Comment: Reaso n for Exam Cirrhosis of liver Performed By: #### C MP ####[place] [id number] [facility] AST [Catalytic activity/Vol] 76 U/L High 13-39 [facility] Comment on above: Order Comment: Reaso n for Exam Cirrhosis of liver Performed By: #### C MP ####[place] [id number] [place] Chloride [Moles/Vol] 95 mmol/L Low 98-107 [facility] Comment on above: Order Comment: Reaso n for Exam Cirrhosis of liver Performed By: #### C MP ####[place] [id number] [facility] Glucose [Mass/Vol] 94 mg/dL Normal 70-100 [facility] Comment on above: ADA recommended refe rence rangeRandom Glucose Reference Range is dependent on time and content of last meal. Glucose of more than 200 mg/dL in a nonstressed, ambulatory subject supports the diagnosis of Diabetes Mellitus. Order Comment: Reaso n for Exam Cirrhosis of liver Result Comment: [place] om Glucose Reference Range is dependent on time and content of last meal. Glucose of more than 200 mg/dL in a nonstressed, ambulatory subject supports the diagnosis of Diabetes Mellitus. ADA recommended reference range Performed By: #### C MP ####[place] [id number] [place] Sodium [Moles/Vol] 127 mmol/L Low 136-145 [facility] Comment on above: Order Comment: Reaso n for Exam Cirrhosis of liver Performed By: #### C MP ####[facility] [address] [place] [address] [place] Urea nitrogen [Mass/Vol] 9 mg/dL Normal 7-25 [facility] Comment on above: Order Comment: Reaso n for Exam Cirrhosis of liver Performed By: #### C MP ####[facility] [address] [place] [address] [facility] Creatinine [Mass/volume] in Serum or PlasmaOrdered By: Lorna Ortega on 04-12-2023 Creatinine [Mass/Vol] 0.81 mg/dL 0.70-1.30 [facility] Globulin Calc (S) [Mass/Vol] Ordered By: Lorna Ortega on 04-12-2023 Globulin (S) [Mass/Vol] 3.3 g/dL [facility] No Panel InformationOrdered By: Lorna Ortega on 04-12-2023 Estimated GFR (CKD-EPI) > 60.0 mL/Min [facility] Creatinine Clearance (Chem N/A [facility] Potassium [Moles/volume] in Serum or PlasmaOrdered By: Lorna Ortega on 04-12-2023 Potassium [Moles/Vol] 5.1 mmol/L 3.5-5.1 [facility] Protein [Mass/volume] in Ser um or PlasmaOrdered By: Lorna Ortega on 04-12-2023 Protein [Mass/Vol] 6.3 g/dL 6.4-8.9 [facility] Serum or plasma anion gap de terminationOrdered By: Lorna Ortega on 04-12-2023 Anion gap [Moles/Vol] 9.8 mmol/L 6.0-15.0 [facility] XR RIBS 2 VIEWS LEFT WITH CH EST ANTEROPOSTERIORon 03-24-2023 XR RIBS 2 VIEWS LEFT WITH CHEST ANTEROPOSTERIOR CLINICAL HISTORY: see dx COMPARISON: NONE. STUDY: Left rib x-rays FINDINGS: The cardiomediastinal silhouette is unremarkable. The lungs are free of infiltrates effusions or consolidations. There are no lytic or sclerotic bone lesions. There are nondisplaced fractures of the left lateral eighth, ninth, and 10th ribs. The soft tissues are within normal limits, there are no radiopaque foreign bodies.. IMPRESSION: THERE ARE NONDISPLACED FRACTURES OF THE LEFT EIGHTH-10TH RIBS. ELECTRONICALLY SIGNED BY: Nick Beverly MD Normal Not Available US liveron 11-15-2022 liver [facility] [place] [address] [place], [place] [id number] Ultrasound Report Signed Patient: Charles Blandon MR#: [id number] 66 : 1955 Acct:[id number] Age/Sex: 67 / M ADM Date: 11/15/22 Loc: Room: Type: [facility] Attending Dr: Lorna Ortega [employer]ATOR Ordering Provider: Lorna Ortega APRN Date of Service: 11/15/22 US/US liver: Fatty liver Copies to: Lorna Ortega APRN Liver ultrasound HISTORY: Fatty liver. Cholecystectomy COMPARISON: None Negative ultrasound Tubbs's sign reported. COMMON BILE DUCT: Mild prominence likely secondary to cholecystectomy. LIVER CONTOUR: Lobular contour.. LIVER PARENCHYMA: Coarsened echotexture of the liver. HEPATIC LESION: None INTRAHEPATIC BILIARY DUCTAL DILATATION No ductal dilatation identified. Gallbladder absent. Pancreas: Obscured by overlying bowel gas. PORTAL VEIN: Normal blood flow. Liver size: Normal No RIGHT hydronephrosis identified. US/US liver IMPRESSION: Findings of liver cirrhosis. No hepatic mass. Cholecystectomy. Mild prominence of common bile duct likely secondary to cholecystectomy. Impression dictated by: Albin [place] M.D.11/15/2022 12:48 PM Dictation Location: [place] [address] Tech: Tran Queen Transcribed By: ROLAND 11/15/22 1248 Dictated By: Albin [place]illela DO 11/15/22 1245 Signed By: 11/15/22 1248 Normal [facility] LEE ANN with Reflexon 09-21-2022 LEE ANN with Reflex Negative Normal Negative [facility] Comment on above: Result Comment: Perf ormed at: CB - [facility] [address] [id number] Sales Agent Insurance: John Tang PhD, Phone: [phone] Performed By: #### C MP, CBC, PT, LIPID ####[facility] [id number] [place] [id number] [facility]#### HCV RX PCR, SMAB, ALPHA PHEN, LEE ANN CHOICE, HBSAG, HBCAB, MITOM2, CERULOP, HBSAB ####[facility] , Actin smooth muscle IgG Ab [ Units/volume] in SerumOrdered By: Lex Carroll on 09-21-2022 Actin smooth muscle IgG Qn (S) 8 Units 0-19 [facility] Comment on above: Negative 0 - 19 Weak positive 20 - 30 Moderate to strong positive >30 Actin Antibodies are found in 52-85% of patients with autoimmune hepatitis or chronic active hepatitis and in 22% of patients with primary biliary cirrhosis. Alanine aminotransferase [En zymatic activity/volume] in Serum or PlasmaOrdered By: Lex Carroll on 09-21-2022 ALT [Catalytic activity/Vol] 30 U/L 7-52 [facility] Albumin [Mass/volume] in Ser um or Plasma by Bromocresol green (BCG) dye binding methoOrdered By: Lex Carroll on 09-21-2022 Albumin BCG dye [Mass/Vol] 3.6 g/dL 3.5-5.7 [facility] Alkaline phosphatase [Enzyma tic activity/volume] in Serum or PlasmaOrdered By: Lex Carroll on 09-21-2022 ALP [Catalytic activity/Vol] 96 U/L 34-104 [facility] [id number] Phenotyp janna 09-21-2022 Alpha 1 Anti-Trypsin 205 mg/dL High 101-187 [facility] Comment on above: Performed By: #### C MP, CBC, PT, LIPID ####[facility] [place] [id number] [facility]#### HCV RX PCR, SMAB, ALPHA PHEN, LEE ANN CHOICE, HBSAG, HBCAB, MITOM2, CERULOP, HBSAB ####[facility] , Phenotype (P1) MM Normal . [facility] Comment on above: Result Comment: Phen otype Population A-1-AT Concentration* Incidence % % of MM (Typical Range) MM 86.5% 100% (96 - 189) MS 8.0% 86% (83 - 161) MZ 3.9% 61% (60 - 111) FM 0.4% 100% (93 - 191) SZ 0.3% 41% (42 - 75) SS 0.1% 64% (62 - 119) ZZ 0.05% 19% (16 - 38) FS 0.05% 70% (70 - 128) FZ Unknown 46% (44 - 88) FF Unknown Unknown *A-1-AT concentration in the homozygous MM phenotype is taken as the reference normal. Percent deficiency in each phenotype is reported relative to this reference. Ranges used to confirm phenotype. Performed at: [facility] [address] [id number] Sales Agent Insurance: John Tang PhD, Phone: [phone] Performed at: [facility] [address] [id number] Sales Agent Insurance: George Brown MD, Phone: [phone] Performed By: #### C MP, CBC, PT, LIPID ####[facility] [id number]#### HCV RX PCR, SMAB, ALPHA PHEN, LEE ANN CHOICE, HBSAG, HBCAB, MITOM2, CERULOP, HBSAB ####[facility] , Aspartate aminotransferase [ Enzymatic activity/volume] in Serum or PlasmaOrdered By: Lex Carroll on 09-21-2022 AST [Catalytic activity/Vol] 55 U/L 13-39 [facility] Basophils Auto (Bld) [#/Vol] Ordered By: Lex Carroll on 09-21-2022 Basophils (Bld) [#/Vol] 0.0 10*3/uL 0.0-0.2 [facility] Basophils/100 WBC Auto (Bld) Ordered By: Lex Carroll on 09-21-2022 Basophils/100 WBC (Bld) 0.9 % . [facility] Bilirubin.total [Mass/volume ] in Serum or PlasmaOrdered By: Lex Carroll on 09-21-2022 Bilirubin [Mass/Vol] 0.9 mg/dL 0.3-1.0 [facility] Calcium [Mass/volume] in Ser um or PlasmaOrdered By: Lex Carroll on 09-21-2022 Calcium [Mass/Vol] 8.7 mg/dL 8.6-10.3 [facility] Carbon dioxide, total [Moles /volume] in Serum or PlasmaOrdered By: Lex Carroll on 09-21-2022 CO2 [Moles/Vol] 26.9 mmol/L 21.0-31.0 [facility] Ceruloplasminon 09-21-2022 Ceruloplasmin 22.4 mg/dL Normal 16.0-31.0 [facility] Comment on above: Result Comment: Perf ormed at: CB - [facility] [address] [id number] Sales Agent Insurance: John Tang PhD, Phone: [phone] PERFORMED BY: [facility] [address] [place] [address] PATHOLOGIST STONE BREAKER CLARK LEARY M.D. Performed By: #### C MP, CBC, PT, LIPID ####[facility] [id number]#### HCV RX PCR, SMAB, ALPHA PHEN, LEE ANN CHOICE, HBSAG, HBCAB, MITOM2, CERULOP, HBSAB ####[facility] , Chloride [Moles/volume] in S mateo or PlasmaOrdered By: Lex Carroll on 09-21-2022 Chloride [Moles/Vol] 108 mmol/L 98-107 [facility] Cholesterol [Mass/volume] in Serum or PlasmaOrdered By: Lex Carroll on 09-21-2022 Cholesterol [Mass/Vol] 175 mg/dL 140-200 [facility] Comment on above: Chol less than 200 m g/dl low riskChol 201-239 mg/dl borderline riskChol 240 mg/dl and greater high risk Cholesterol in LDL Calc [Mas s/Vol]Ordered By: Lex Carroll on 09-21-2022 Cholesterol in LDL [Mass/Vol] 94 mg/dL 0-100 [facility] Comment on above: LDL ATP III CLASSIFI CATIONLDL less than 100 mg/dL OptimalLDL 100-129 mg/dL Near or above optimalLDL 130-159 mg/dL Borderline highLDL 160-189 mg/dL HighLDL greater than 189 mg/dL Very high Cholesterol in VLDL Calc [Ma ss/Vol]Ordered By: Lex Carroll on 09-21-2022 Cholesterol in VLDL [Mass/Vol] 21 mg/dL [facility] Complete Blood Count Auto Di ffon 09-21-2022 Basophils (Bld) [#/Vol] 0.0 10*3/uL Normal 0.0-0.2 [facility] Comment on above: Result Comment: PERF ORMED BY: [place] [address] PATHOLOGIST STONE BREAKER CLARK LEARY M.D. Performed By: #### C MP, CBC, PT, LIPID #### [address] #### HCV RX PCR, SMAB, ALPHA PHEN, LEE ANN CHOICE, HBSAG, HBCAB, MITOM2, CERULOP, HBSAB #### [facility] , Basophils/100 WBC (Bld) 0.9 % Normal . [facility] Comment on above: Performed By: #### C MP, CBC, PT, LIPID #### [address] #### HCV RX PCR, SMAB, ALPHA PHEN, LEE ANN CHOICE, HBSAG, HBCAB, MITOM2, CERULOP, HBSAB #### [facility] , Eosinophils (Bld) [#/Vol] 0.2 10*3/uL Normal 0.0-0.45 [facility] Comment on above: Performed By: #### C MP, CBC, PT, LIPID #### [place] [address] [place] #### HCV RX PCR, SMAB, ALPHA PHEN, LEE ANN CHOICE, HBSAG, HBCAB, MITOM2, CERULOP, HBSAB #### [facility] , Eosinophils/100 WBC (Bld) 3.6 % Normal . [facility] Comment on above: Performed By: #### C MP, CBC, PT, LIPID #### [address] #### HCV RX PCR, SMAB, ALPHA PHEN, LEE ANN CHOICE, HBSAG, HBCAB, MITOM2, CERULOP, HBSAB #### [facility] , Erythrocyte distribution width (RBC) [Ratio] 14.2 % Normal 12.0-14.8 [facility] Comment on above: Performed By: #### C MP, CBC, PT, LIPID #### [address] #### HCV RX PCR, SMAB, ALPHA PHEN, LEE ANN CHOICE, HBSAG, HBCAB, MITOM2, CERULOP, HBSAB #### [facility] , Hematocrit (Bld) [Volume fraction] 37.5 % Low 38.8-50.0 [facility] Comment on above: Performed By: #### C MP, CBC, PT, LIPID #### [address] #### HCV RX PCR, SMAB, ALPHA PHEN, LEE ANN CHOICE, HBSAG, HBCAB, MITOM2, CERULOP, HBSAB #### [facility] , Hemoglobin (Bld) [Mass/Vol] 12.9 g/dL Low 13.0-17.0 [facility] Comment on above: Performed By: #### C MP, CBC, PT, LIPID #### [address] #### HCV RX PCR, SMAB, ALPHA PHEN, LEE ANN CHOICE, HBSAG, HBCAB, MITOM2, CERULOP, HBSAB #### [facility] , Lymphocytes (Bld) [#/Vol] 1.1 10*3/uL Normal 1.00-4.8 [facility] Comment on above: Performed By: #### C MP, CBC, PT, LIPID #### [place] [address] [place] #### HCV RX PCR, SMAB, ALPHA PHEN, LEE ANN CHOICE, HBSAG, HBCAB, MITOM2, CERULOP, HBSAB #### [facility] , Lymphocytes/100 WBC (Bld) 27.1 % Normal . [facility] Comment on above: Performed By: #### C MP, CBC, PT, LIPID #### [address] #### HCV RX PCR, SMAB, ALPHA PHEN, LEE ANN CHOICE, HBSAG, HBCAB, MITOM2, CERULOP, HBSAB #### [facility] , MCH (RBC) [Entitic mass] 35.0 pg Normal 27.5-35.2 [facility] Comment on above: Performed By: #### C MP, CBC, PT, LIPID #### [address] #### HCV RX PCR, SMAB, ALPHA PHEN, LEE ANN CHOICE, HBSAG, HBCAB, MITOM2, CERULOP, HBSAB #### [facility] , MCV (RBC) [Entitic vol] 101.9 fL High 83.5-101 [facility] Comment on above: Performed By: #### C MP, CBC, PT, LIPID #### [address] #### HCV RX PCR, SMAB, ALPHA PHEN, LEE ANN CHOICE, HBSAG, HBCAB, MITOM2, CERULOP, HBSAB #### [facility] , Mean Corpuscular HGB Conc 34.4 g/dL Normal 32.5-35.6 [facility] Comment on above: Performed By: #### C MP, CBC, PT, LIPID #### [place] [address] [place] #### HCV RX PCR, SMAB, ALPHA PHEN, LEE ANN CHOICE, HBSAG, HBCAB, MITOM2, CERULOP, HBSAB #### [facility] , Monocytes (Bld) [#/Vol] 0.5 10*3/uL Normal 0.0-0.8 [facility] Comment on above: Performed By: #### C MP, CBC, PT, LIPID #### [place] [address] [place] #### HCV RX PCR, SMAB, ALPHA PHEN, LEE ANN CHOICE, HBSAG, HBCAB, MITOM2, CERULOP, HBSAB #### [facility] , Monocytes/100 WBC (Bld) 11.3 % Normal . [facility] Comment on above: Performed By: #### C MP, CBC, PT, LIPID #### [address] #### HCV RX PCR, SMAB, ALPHA PHEN, LEE ANN CHOICE, HBSAG, HBCAB, MITOM2, CERULOP, HBSAB #### [facility] , Neutrophils (Bld) [#/Vol] 2.4 10*3/uL Normal 1.8-7.7 [facility] Comment on above: Performed By: #### C MP, CBC, PT, LIPID #### [address] #### HCV RX PCR, SMAB, ALPHA PHEN, LEE ANN CHOICE, HBSAG, HBCAB, MITOM2, CERULOP, HBSAB #### [facility] , Neutrophils/100 WBC (Bld) 57.1 % Normal . [facility] Comment on above: Performed By: #### C MP, CBC, PT, LIPID #### [place] [address] [place] #### HCV RX PCR, SMAB, ALPHA PHEN, LEE ANN CHOICE, HBSAG, HBCAB, MITOM2, CERULOP, HBSAB #### [facility] , NRBC% 0.2 /100{WBC} Normal 0-0.5 [facility] Comment on above: Performed By: #### C MP, CBC, PT, LIPID #### [place] [address] [place] #### HCV RX PCR, SMAB, ALPHA PHEN, LEE ANN CHOICE, HBSAG, HBCAB, MITOM2, CERULOP, HBSAB #### [facility] , Platelet mean volume (Bld) [Entitic vol] 9.8 fL Normal 6.6-10.1 [facility] Comment on above: Performed By: #### C MP, CBC, PT, LIPID #### [place] [address] [place] #### HCV RX PCR, SMAB, ALPHA PHEN, LEE ANN CHOICE, HBSAG, HBCAB, MITOM2, CERULOP, HBSAB #### [facility] , Platelets (Bld) [#/Vol] 91 10*3/uL Low 150-450 [facility] Comment on above: Performed By: #### C MP, CBC, PT, LIPID #### [place] [address] [place] #### HCV RX PCR, SMAB, ALPHA PHEN, LEE ANN CHOICE, HBSAG, HBCAB, MITOM2, CERULOP, HBSAB #### [facility] , RBC (Bld) [#/Vol] 3.68 10*6/uL Low 3.90-5.60 [facility] Comment on above: Performed By: #### C MP, CBC, PT, LIPID #### [place] [address] [place] #### HCV RX PCR, SMAB, ALPHA PHEN, LEE ANN CHOICE, HBSAG, HBCAB, MITOM2, CERULOP, HBSAB #### [facility] , WBC (Bld) [#/Vol] 4.2 10*3/uL Normal 4.1-10.5 [facility] Comment on above: Performed By: #### C MP, CBC, PT, LIPID #### [place] [address] [place] #### HCV RX PCR, SMAB, ALPHA PHEN, LEE ANN CHOICE, HBSAG, HBCAB, MITOM2, CERULOP, HBSAB #### [facility] , Comprehensive Metabolic Pane mayito 09-21-2022 Albumin [Mass/Vol] 3.6 g/dL Normal 3.5-5.7 [facility] Comment on above: Performed By: #### C MP, CBC, PT, LIPID #### [address] #### HCV RX PCR, SMAB, ALPHA PHEN, LEE ANN CHOICE, HBSAG, HBCAB, MITOM2, CERULOP, HBSAB #### [facility] , Albumin/Globulin [Mass ratio] 1.3 {ratio} Normal [facility] Comment on above: Performed By: #### C MP, CBC, PT, LIPID #### [address] #### HCV RX PCR, SMAB, ALPHA PHEN, LEE ANN CHOICE, HBSAG, HBCAB, MITOM2, CERULOP, HBSAB #### [facility] , ALP [Catalytic activity/Vol] 96 U/L Normal 34-104 [facility] Comment on above: Performed By: #### C MP, CBC, PT, LIPID #### [address] #### HCV RX PCR, SMAB, ALPHA PHEN, LEE ANN CHOICE, HBSAG, HBCAB, MITOM2, CERULOP, HBSAB #### [facility] , ALT [Catalytic activity/Vol] 30 U/L Normal 7-52 [facility] Comment on above: Performed By: #### C MP, CBC, PT, LIPID #### [place] [address] [place] #### HCV RX PCR, SMAB, ALPHA PHEN, LEE ANN CHOICE, HBSAG, HBCAB, MITOM2, CERULOP, HBSAB #### [facility] , Anion gap [Moles/Vol] 11.1 mmol/L Normal 6.0-15.0 [facility] Comment on above: Performed By: #### C MP, CBC, PT, LIPID #### [address] #### HCV RX PCR, SMAB, ALPHA PHEN, LEE ANN CHOICE, HBSAG, HBCAB, MITOM2, CERULOP, HBSAB #### [facility] , AST [Catalytic activity/Vol] 55 U/L High 13-39 [facility] Comment on above: Performed By: #### C MP, CBC, PT, LIPID #### [facility] [address] [place] [address] [place] #### HCV RX PCR, SMAB, ALPHA PHEN, LEE ANN CHOICE, HBSAG, HBCAB, MITOM2, CERULOP, HBSAB #### [facility] , Bilirubin [Mass/Vol] 0.9 mg/dL Normal 0.3-1.0 [facility] Comment on above: Performed By: #### C MP, CBC, PT, LIPID #### [place] [address] [place] #### HCV RX PCR, SMAB, ALPHA PHEN, LEE ANN CHOICE, HBSAG, HBCAB, MITOM2, CERULOP, HBSAB #### [facility] , Calcium [Mass/Vol] 8.7 mg/dL Normal 8.6-10.3 [facility] Comment on above: Performed By: #### C MP, CBC, PT, LIPID #### [facility] [address] [place] [address] [place] #### HCV RX PCR, SMAB, ALPHA PHEN, LEE ANN CHOICE, HBSAG, HBCAB, MITOM2, CERULOP, HBSAB #### [facility] , Chloride [Moles/Vol] 108 mmol/L High 98-107 [facility] Comment on above: Performed By: #### C MP, CBC, PT, LIPID #### [facility] [address] [place] [address] [place] #### HCV RX PCR, SMAB, ALPHA PHEN, LEE ANN CHOICE, HBSAG, HBCAB, MITOM2, CERULOP, HBSAB #### [facility] , CO2 [Moles/Vol] 26.9 mmol/L Normal 21.0-31.0 [facility] Comment on above: Performed By: #### C MP, CBC, PT, LIPID #### [place] [address] [place] #### HCV RX PCR, SMAB, ALPHA PHEN, LEE ANN CHOICE, HBSAG, HBCAB, MITOM2, CERULOP, HBSAB #### [facility] , Creatinine [Mass/Vol] 0.90 mg/dL Normal 0.70-1.30 [facility] Comment on above: Performed By: #### C MP, CBC, PT, LIPID #### [address] #### HCV RX PCR, SMAB, ALPHA PHEN, LEE ANN CHOICE, HBSAG, HBCAB, MITOM2, CERULOP, HBSAB #### [facility] , Creatinine Clr Calc Pharmacy 88.23 Normal [facility] Comment on above: Performed By: #### C MP, CBC, PT, LIPID #### [address] #### HCV RX PCR, SMAB, ALPHA PHEN, LEE ANN CHOICE, HBSAG, HBCAB, MITOM2, CERULOP, HBSAB #### [facility] , GFR/1.73 sq M.predicted MDRD (S/P/Bld) [Vol rate/Area] mL/min/{1.73_m2} Normal [facility] Comment on above: Performed By: #### C MP, CBC, PT, LIPID #### [place] [address] [place] #### HCV RX PCR, SMAB, ALPHA PHEN, LEE ANN CHOICE, HBSAG, HBCAB, MITOM2, CERULOP, HBSAB #### [facility] , Globulin (S) [Mass/Vol] 2.8 g/dL Normal [facility] Comment on above: Performed By: #### C MP, CBC, PT, LIPID #### [place] [address] [place] #### HCV RX PCR, SMAB, ALPHA PHEN, LEE ANN CHOICE, HBSAG, HBCAB, MITOM2, CERULOP, HBSAB #### [facility] , Glucose [Mass/Vol] 123 mg/dL High 70-100 [facility] Comment on above: Result Comment: [place] Glucose Reference Range is dependent on time and content of last meal. Glucose of more than 200 mg/dL in a nonstressed, ambulatory subject supports the diagnosis of Diabetes Mellitus. ADA recommended reference range Performed By: #### C MP, CBC, PT, LIPID #### [place] [address] [place] #### HCV RX PCR, SMAB, ALPHA PHEN, LEE ANN CHOICE, HBSAG, HBCAB, MITOM2, CERULOP, HBSAB #### [facility] , Potassium [Moles/Vol] 5.0 mmol/L Normal 3.5-5.1 [facility] Comment on above: Performed By: #### C MP, CBC, PT, LIPID #### [address] #### HCV RX PCR, SMAB, ALPHA PHEN, LEE ANN CHOICE, HBSAG, HBCAB, MITOM2, CERULOP, HBSAB #### [facility] , Protein [Mass/Vol] 6.4 g/dL Normal 6.4-8.9 [facility] Comment on above: Performed By: #### C MP, CBC, PT, LIPID #### [place] [address] [place] #### HCV RX PCR, SMAB, ALPHA PHEN, LEE ANN CHOICE, HBSAG, HBCAB, MITOM2, CERULOP, HBSAB #### [facility] , Sodium [Moles/Vol] 141 mmol/L Normal 136-145 [facility] Comment on above: Performed By: #### C MP, CBC, PT, LIPID #### [place] [address] [place] #### HCV RX PCR, SMAB, ALPHA PHEN, LEE ANN CHOICE, HBSAG, HBCAB, MITOM2, CERULOP, HBSAB #### [facility] , Urea nitrogen [Mass/Vol] 9 mg/dL Normal 7-25 [facility] Comment on above: Performed By: #### C MP, CBC, PT, LIPID #### [facility] [address] #### HCV RX PCR, SMAB, ALPHA PHEN, LEE ANN CHOICE, HBSAG, HBCAB, MITOM2, CERULOP, HBSAB #### [facility] , Creatinine [Mass/volume] in Serum or PlasmaOrdered By: Lex Carroll on 09-21-2022 Creatinine [Mass/Vol] 0.90 mg/dL 0.70-1.30 [facility] Eosinophils Auto (Bld) [#/Vo l]Ordered By: Lex Carroll on 09-21-2022 Eosinophils (Bld) [#/Vol] 0.2 10*3/uL 0.0-0.45 [facility] Eosinophils/100 WBC Auto (Bl d)Ordered By: Lex Carroll on 09-21-2022 Eosinophils/100 WBC (Bld) 3.6 % . [facility] Erythrocyte distribution wid th Auto (RBC) [Ratio]Ordered By: Lex Carroll on 09-21-2022 Erythrocyte distribution width (RBC) [Ratio] 14.2 % 12.0-14.8 [facility] Globulin Calc (S) [Mass/Vol] Ordered By: Lex Carroll on 09-21-2022 Globulin (S) [Mass/Vol] 2.8 g/dL [facility] Glucose [Mass/volume] in Ser um or PlasmaOrdered By: Lex Carroll on 09-21-2022 Glucose [Mass/Vol] 123 mg/dL 70-100 [facility] Comment on above: ADA recommended refe rence rangeRandom Glucose Reference Range is dependent on time and content of last meal. Glucose of more than 200 mg/dL in a nonstressed, ambulatory subject supports the diagnosis of Diabetes Mellitus. Hematocrit Auto (Bld) [Volum e fraction]Ordered By: Lex Carroll on 09-21-2022 Hematocrit (Bld) [Volume fraction] 37.5 % 38.8-50.0 [facility] Hemoglobin [Mass/volume] in BloodOrdered By: Lex Carroll on 09-21-2022 Hemoglobin (Bld) [Mass/Vol] 12.9 g/dL 13.0-17.0 [facility] Hep C Ab wRfx to Qnt PCRon 0 09-21-2022 Hepatitis C Virus Antibody Non-Reactive Normal Non Reactive [facility] Comment on above: Performed By: #### C MP, CBC, PT, LIPID ####[place] [id number] [address]#### HCV RX PCR, SMAB, ALPHA PHEN, LEE ANN CHOICE, HBSAG, HBCAB, MITOM2, CERULOP, HBSAB ####[facility] , Interpretation Hepatitis C Normal . [facility] Comment on above: Result Comment: Not infected with HCV unless early or acute infection is suspected (which may be delayed in an immunocompromised individual), or other evidence exists to indicate HCV infection. Performed By: #### C MP, CBC, PT, LIPID ####[address]#### HCV RX PCR, SMAB, ALPHA PHEN, LEE ANN CHOICE, HBSAG, HBCAB, MITOM2, CERULOP, HBSAB ####[facility] , Hepatitis B Core Antibodyon 09-21-2022 Hepatitis B Core Antibody Negative Normal Negative [facility] Comment on above: Result Comment: Perf ormed at: [facility] [place] [id number] Sales Agent Insurance: John Tang PhD, Phone: [phone] Performed By: #### C MP, CBC, PT, LIPID ####[address]#### HCV RX PCR, SMAB, ALPHA PHEN, LEE ANN CHOICE, HBSAG, HBCAB, MITOM2, CERULOP, HBSAB ####[facility] , Hepatitis B Surface Antibody on 09-21-2022 Hepatitis B Surface Antibody Non-Reactive Normal . [facility] Comment on above: Result Comment: Non Reactive: Inconsistent with immunity, less than 10 mIU/mL Reactive: Consistent with immunity, greater than 9.9 mIU/mL Performed By: #### C MP, CBC, PT, LIPID ####[facility] [id number]#### HCV RX PCR, SMAB, ALPHA PHEN, LEE ANN CHOICE, HBSAG, HBCAB, MITOM2, CERULOP, HBSAB ####[facility] , Hepatitis B Surface Antigeno n 09-21-2022 HBsAg Screen Negative Normal Negative [facility] Comment on above: Result Comment: PERF ORMED BY: [facility] [address] [place] [address] PATHOLOGIST STONE BREAKER CLARK LEARY M.D. Performed By: #### C MP, CBC, PT, LIPID ####[place] [address] [address]#### HCV RX PCR, SMAB, ALPHA PHEN, LEE ANN CHOICE, HBSAG, HBCAB, MITOM2, CERULOP, HBSAB ####[facility] , Hepatitis B virus surface Ag [Presence] in Serum or Plasma by ImmunoassayOrdered By: Lex Carroll on 09-21-2022 HBV surface Ag IA Ql Negative Negative [facility] Hepatitis C virus IgG Ab [Pr esence] in Serum or Plasma by ImmunoassayOrdered By: Lex Carroll on 09-21-2022 HCV IgG IA Ql Non-Reactive Non Reactive [facility] Mayito 09-21-2022 L ----- Specimen: [id number] Received: 09/21/22 Status: HUSAM Coffey Num: [id number] Spec Type: Surgical Subm Dr: Lex Carroll MD Tissues: A Esophagus Biopsy (ESOPHAGEAL ISLAND) Procedures: HE/2, Gross/Micro L4 Age/ Patient Sex Location Account Attending Physician Charles Blandon 67/M [id number] Lex Carroll MD SPEC NUM: [id number] RECD: 09/21/22 STATUS: HUSAM COFFEY NUM: [id number] WEN: 09/21/22- [facility] DR: Lex Carroll MD ENTERED: 09/21/[address] [facility] [address]: SHERLY TYPE: Surgical DEPT: S ORDERED: HE/2, Gross/Micro L4 ORDERED: HE/2, Gross/Micro L4 Pathological Diagnosis Esophagus, island, biopsy: - Chronic gastroesophagitis. - Negative for Recinos?s esophagus (H E stain). - Negative for dysplasia. - Negative for eosinophilic esophagitis. Clinical Information Recinos's, rule out Recinos's Gross Description Received in formalin labeled with the patient's name, number and esophageal island is one fragment of soft bazzi tissue measuring 0.2 cm. Entirely submitted in one cassette labeled A1. Microscopic Description Two H E slides reviewed. The microscopic examination confirms the diagnosis. Specimen: [id number] Received: 09/21/22 Status: HUSAM Coffey Num: [id number] Spec Type: Surgical Subm Dr: Lex Carroll MD Tissues: A Esophagus Biopsy (ESOPHAGEAL ISLAND) Procedures: HE/2, Gross/Micro L4 Patient: JamiaCharles [id number] (Continued) Specimen: [id number] Received: 09/21/22 (Continued) Signed (signature on file) Ame Benson MD 09/22/22 0955 Specimen: [id number] Received: 09/21/22 Status: HUSAM Coffey Num: [id number] Spec Type: Surgical Subm Dr: Lex Carroll MD Tissues: A Esophagus Biopsy (ESOPHAGEAL ISLAND) Procedures: HE/2, Gross/Micro L4 Patient: Charles Blandon [id number] (Continued) Specimen: Received: 09/21/22 (Continued) CPT Codes 66431 Specimen: [id number] Received: 09/21/22 Status: HUSAM Coffey Num: [id number] Spec Type: Surgical Subm Dr: Lex Carroll MD Tissues: A Esophagus Biopsy (ESOPHAGEAL ISLAND) Procedures: HE/2, Gross/Micro L4 Patient: JamiaCharles [id number] (Continued) Signed (signature on file) Ame Benson MD 09/22/22 0955 Normal [facility] Laboratory - CoagulationOrde red By: Lex Carroll on 09-21-2022 PT Coag (PPP) [Time] 13.0 s 9.0-12.9 [facility] Leukocytes [#/volume] correc jamila for nucleated erythrocytes in Blood by Automated counOrdered By: Lex Carroll on 09-21-2022 WBC corrected for nucl RBC Auto (Bld) [#/Vol] 4.2 10*3/uL 4.1-10.5 [facility] Lipid Panelon 09-21-2022 Cholesterol [Mass/Vol] 175 mg/dL Normal 140-200 [facility] Comment on above: Result Comment: Chol less than 200 mg/dl low risk Chol 201-239 mg/dl borderline risk Chol 240 mg/dl and greater high risk Performed By: #### C MP, CBC, PT, LIPID #### [facility] [address] #### HCV RX PCR, SMAB, ALPHA PHEN, LEE ANN CHOICE, HBSAG, HBCAB, MITOM2, CERULOP, HBSAB #### [facility] , Cholesterol in HDL [Mass/Vol] 60 mg/dL Normal 23-92 [facility] Comment on above: Result Comment: HDL CHOL ATP-III CLASSIFICATION Cardiovascular Risk HDL > or equal to 60 mg/dL LOW HDL < 40 mg/dL HIGH Performed By: #### C MP, CBC, PT, LIPID #### [address] #### HCV RX PCR, SMAB, ALPHA PHEN, LEE ANN CHOICE, HBSAG, HBCAB, MITOM2, CERULOP, HBSAB #### [facility] , Cholesterol.total/Chol esterol in HDL [Mass ratio] 2.9 {ratio} Normal <5.0 [facility] Comment on above: Result Comment: PERF ORMED BY: [place] [address] PATHOLOGIST STONE BREAKER CLARK LEARY M.D. Performed By: #### C MP, CBC, PT, LIPID #### [address] #### HCV RX PCR, SMAB, ALPHA PHEN, LEE ANN CHOICE, HBSAG, HBCAB, MITOM2, CERULOP, HBSAB #### [facility] , LDL Cholesterol,Calculated 94 mg/dL Normal 0-100 [facility] Comment on above: Result Comment: LDL ATP III CLASSIFICATION LDL less than 100 mg/dL Optimal LDL 100-129 mg/dL Near or above optimal LDL 130-159 mg/dL Borderline high LDL 160-189 mg/dL High LDL greater than 189 mg/dL Very high Performed By: #### C MP, CBC, PT, LIPID #### [place] [address] [place] #### HCV RX PCR, SMAB, ALPHA PHEN, LEE ANN CHOICE, HBSAG, HBCAB, MITOM2, CERULOP, HBSAB #### [facility] , Triglyceride w/Reflex 107 mg/dL Normal 0-149 [facility] Comment on above: Result Comment: TRIG ATP III CLASSIFICATION TRIG less than 150 mg/dL Normal TRIG 150-199 mg/dL Borderline high TRIG 200-500 mg/dL High TRIG greater than 500 mg/dL Very high Standard traceable to the Center for Disease Conrtrol and Prevention (CDC) test method. Performed By: #### C MP, CBC, PT, LIPID #### [facility] [address] [place] [address] [place] #### HCV RX PCR, SMAB, ALPHA PHEN, LEE ANN CHOICE, HBSAG, HBCAB, MITOM2, CERULOP, HBSAB #### [facility] , VLDL CHOLESTEROL 21 mg/dL Normal [facility] Comment on above: Performed By: #### C MP, CBC, PT, LIPID #### [facility] [address] [place] [address] [place] #### HCV RX PCR, SMAB, ALPHA PHEN, LEE ANN CHOICE, HBSAG, HBCAB, MITOM2, CERULOP, HBSAB #### [facility] , Lymphocytes Auto (Bld) [#/Vo l]Ordered By: Lex Carroll on 09-21-2022 Lymphocytes (Bld) [#/Vol] 1.1 10*3/uL 1.00-4.8 [facility] Lymphocytes/100 WBC Auto (Bl d)Ordered By: Lex Carroll on 09-21-2022 Lymphocytes/100 WBC (Bld) 27.1 % . [facility] MCH Auto (RBC) [Entitic mass ]Ordered By: Lex Carroll on 09-21-2022 MCH (RBC) [Entitic mass] 35.0 pg 27.5-35.2 [facility] MCHC Auto (RBC) [Mass/Vol]Or dered By: Lex Carroll on 09-21-2022 MCHC (RBC) [Mass/Vol] 34.4 g/dL 32.5-35.6 [facility] MCV Auto (RBC) [Entitic vol] Ordered By: Lex Carroll on 09-21-2022 MCV (RBC) [Entitic vol] 101.9 fL 83.5-101 [facility] Mitochondrial (M2) Antibodyo n 09-21-2022 Mitochondrial (M2) Antibody <20.0 Normal 0.0-20.0 [facility] Comment on above: Result Comment: Nega tive 0.0 - 20.0 Equivocal 20.1 - 24.9 Positive >24.9 Mitochondrial (M2) Antibodies are found in 90-96% of patients with primary biliary cirrhosis. Performed at: CB - [facility] [address] [id number] Sales Agent Insurance: John Tang PhD, Phone: [phone] Performed By: #### C MP, CBC, PT, LIPID ####[facility] [id number]#### HCV RX PCR, SMAB, ALPHA PHEN, LEE ANN CHOICE, HBSAG, HBCAB, MITOM2, CERULOP, HBSAB ####[facility] , Monocytes Auto (Bld) [#/Vol] Ordered By: Lex Carroll on 09-21-2022 Monocytes (Bld) [#/Vol] 0.5 10*3/uL 0.0-0.8 [facility] Monocytes/100 WBC Auto (Bld) Ordered By: Lex Carroll on 09-21-2022 Monocytes/100 WBC (Bld) 11.3 % . [facility] Neutrophils Auto (Bld) [#/Vo l]Ordered By: Lex Carroll on 09-21-2022 Neutrophils (Bld) [#/Vol] 2.4 10*3/uL 1.8-7.7 [facility] Neutrophils/100 WBC Auto (Bl d)Ordered By: Lex Carroll on 09-21-2022 Neutrophils/100 WBC (Bld) 57.1 % . [facility] No Panel InformationOrdered By: Lex Carroll on 09-21-2022 Estimated GFR (CKD-EPI) > 60.0 mL/Min [facility] Hepatitis B Core Total Antibody Negative Negative [facility] Comment on above: Performed at: [facility] - [facility] [address] [id number] Director: John Tang PhD, Phone: [phone] Hepatitis C Interpretation See comment . [facility] Comment on above: Not infected with HC V unless early or acute infection issuspected (which may be delayed in an immunocompromisedindividual), or other evidence exists to indicate HCVinfection. Hepatitis C RNA Quantitative N/A [facility] Creatinine Clearance (Chem 88.23 [facility] Nucleated erythrocytes [Pres ence] in Blood by Automated countOrdered By: Lex Carroll on 09-21-2022 Nucleated RBC Auto Ql (Bld) 0.2 /100{WBC} 0-0.5 [facility] Platelet mean volume Auto (B ld) [Entitic vol]Ordered By: Lex Carroll on 09-21-2022 Platelet mean volume (Bld) [Entitic vol] 9.8 fL 6.6-10.1 [facility] Platelet poor plasma interna tional normalized ratio (INR) by coagulation assay (relatOrdered By: Lex Carroll on 09-21-2022 INR Coag (PPP) [Relative time] 1.1 {INR} [facility] Comment on above: INR Therapeutic Rang e A) Pre- and Peroperative OAT started two weeks before surgery. NOT HIP SURGERY: 1.5 - 2.5 HIP SURGERY: 2 - 3B) Primary and secondary prevention of venous THROMBOSIS: 2 - 3C) Active venous thrombosis, pulmonary embolismand prevention of recurrent venous thrombosis: 2 - 3D) Prevention of arterial thromboembolismincluding patients with mechanical heart valves: 3 - 4.5 Platelets Auto (Bld) [#/Vol] Ordered By: Lex Carroll on 09-21-2022 Platelets (Bld) [#/Vol] 91 10*3/uL 150-450 [facility] Potassium [Moles/volume] in Serum or PlasmaOrdered By: Lex Carroll on 09-21-2022 Potassium [Moles/Vol] 5.0 mmol/L 3.5-5.1 [facility] Protein [Mass/volume] in Ser um or PlasmaOrdered By: Lex Carroll on 09-21-2022 Protein [Mass/Vol] 6.4 g/dL 6.4-8.9 [facility] Prothrombin Time INRon 09-21 INR Coag (PPP) [Relative time] 1.1 {INR} Normal [facility] Comment on above: Result Comment: INR Therapeutic Range A) Pre- and Peroperative OAT started two weeks before surgery. NOT HIP SURGERY: 1.5 - 2.5 HIP SURGERY: 2 - 3 B) Primary and secondary prevention of venous THROMBOSIS: 2 - 3 C) Active venous thrombosis, pulmonary embolism and prevention of recurrent venous thrombosis: 2 - 3 D) Prevention of arterial thromboembolism including patients with mechanical heart valves: 3 - 4.5 PERFORMED BY: [place] [address] PATHOLOGIST STONE BREAKER CLARK LEARY M.D. Performed By: #### C MP, CBC, PT, LIPID #### [facility] [address] [place] [address] #### HCV RX PCR, SMAB, ALPHA PHEN, LEE ANN CHOICE, HBSAG, HBCAB, MITOM2, CERULOP, HBSAB #### [facility] , PT Coag (PPP) [Time] 13.0 s High 9.0-12.9 [facility] Comment on above: Performed By: #### C MP, CBC, PT, LIPID #### [facility] [address] [place] [address] #### HCV RX PCR, SMAB, ALPHA PHEN, LEE ANN CHOICE, HBSAG, HBCAB, MITOM2, CERULOP, HBSAB #### [facility] , RBC Auto (Bld) [#/Vol]Ordere d By: Lex Carroll on 09-21-2022 RBC (Bld) [#/Vol] 3.68 10*6/uL 3.90-5.60 [facility] Serum gsanc-2-getxijuwwan me asurementOrdered By: Lex Carroll on 09-21-2022 Alpha 1 antitrypsin [Mass/Vol] 205 mg/dL 101-187 [facility] Serum hepatitis B virus surf [place] antibody detectionOrdered By: Lex Carroll on 09-21-2022 HBV surface Ab Ql (S) Non-Reactive . [facility] Comment on above: Non Reactive: Incons istent with immunity, less than 10 mIU/mL Reactive: Consistent with immunity, greater than 9.9 mIU/mL Serum mitochondria M2 IgG an tibody assay (units/volume)Ordered By: Lex Carroll on 09-21-2022 Mitochondria M2 IgG Qn (S) <20.0 Units 0.0-20.0 [facility] Comment on above: Negative 0.0 - 20.0 Equivocal 20.1 - 24.9 Positive >24.9Mitochondrial (M2) Antibodies are found in 90-96% ofpatients with primary biliary cirrhosis.Performed at: [facility] [address] [id number] Director: John Tang PhD, Phone: [phone] Serum or plasma albumin/glob ulin mass ratioOrdered By: Lex Carroll on 09-21-2022 Albumin/Globulin [Mass ratio] 1.3 {ratio} [facility] Serum or plasma alpha 1 anti trypsin phenotyping identification by immunofixationOrdered By: Lex Carroll on 09-21-2022 Alpha 1 antitrypsin phenotyping Immunofixation Nom Mm . [facility] Comment on above: Phenotype Population A-1-AT Concentration* Incidence % % of MM (Typical Range) MM 86.5% 100% (96 - 189) MS 8.0% 86% (83 - 161) MZ 3.9% 61% (60 - 111) FM 0.4% 100% (93 - 191) SZ 0.3% 41% (42 - 75) SS 0.1% 64% (62 - 119) ZZ 0.05% 19% (16 - 38) FS 0.05% 70% (70 - 128) FZ Unknown 46% (44 - 88) FF Unknown Unknown*A-1-AT concentration in the homozygous MM phenotype is taken as the reference normal. Percent deficiency in each phenotype is reported relative to this reference. Ranges used to confirm phenotype.Performed at: [facility] [employer] [id number] Director: John Tang PhD, Phone: [phone] at: [address] [id number] Director: George Brown MD, Phone: [phone] Serum or plasma anion gap de terminationOrdered By: Lex Carroll on 09-21-2022 Anion gap [Moles/Vol] 11.1 mmol/L 6.0-15.0 [facility] Serum or plasma ceruloplasmi n measurement (mass/volume)Ordered By: Lex Carroll on 09-21-2022 Ceruloplasmin [Mass/Vol] 22.4 mg/dL 16.0-31.0 [facility] Comment on above: Performed at: [facility] [address] [id number] Director: John Tang PhD, Phone: [phone] Serum or plasma free cefurox nhi measurement (mass/volume)Ordered By: Lex Carroll on 09-21-2022 Cefuroxime free [Mass/Vol] Negative Negative [facility] Comment on above: Performed at: [facility] [address] [id number] Director: John Tang PhD, Phone: [phone] Serum or plasma high density lipoprotein (HDL) cholesterol measurementOrdered By: Lex Carroll on 09-21-2022 Cholesterol in HDL [Mass/Vol] 60 mg/dL 23- [facility] Comment on above: HDL CHOL ATP-III CLA SSIFICATION Cardiovascular RiskHDL > or equal to 60 mg/dL LOWHDL < 40 mg/dL HIGH Serum or plasma total choles terol/high density lipoprotein (HDL) cholesterol mass ratOrdered By: Lex Carroll on 09-21-2022 Cholesterol.total/Chol esterol in HDL [Mass ratio] 2.9 {ratio} <5.0 [facility] Smooth Muscle Antibodyon Smooth Muscle Antibody 8 Normal 0-19 [facility] Comment on above: Result Comment: Nega tive 0 - 19 Weak positive 20 - 30 Moderate to strong positive >30 Actin Antibodies are found in 52-85% of patients with autoimmune hepatitis or chronic active hepatitis and in 22% of patients with primary biliary cirrhosis. PERFORMED BY: [facility] [address] [place] [address] PATHOLOGIST STONE BREAKER CLARK LEARY M.D. Performed By: #### C MP, CBC, PT, LIPID ####[facility] [address]pm[address]#### HCV RX PCR, SMAB, ALPHA PHEN, LEE ANN CHOICE, HBSAG, HBCAB, MITOM2, CERULOP, HBSAB ####[facility] , Sodium [Moles/volume] in Ser um or PlasmaOrdered By: Lex Carroll on 09-21-2022 Sodium [Moles/Vol] 141 mmol/L 136-145 [facility] Triglyceride [Mass/volume] i n Serum or PlasmaOrdered By: Lex Carroll on 09-21-2022 Triglyceride [Mass/Vol] 107 mg/dL 0-149 [facility] Comment on above: TRIG ATP III CLASSIF ICATIONTRIG less than 150 mg/dL NormalTRIG 150-199 mg/dL Borderline highTRIG 200-500 mg/dL High TRIG greater than 500 mg/dL Very highStandard traceable to the Center for Disease Conrtrol and Prevention (CDC) test method. Urea nitrogen [Mass/volume] in Serum or PlasmaOrdered By: Lex Carroll on 09-21-2022 Urea nitrogen [Mass/Vol] 9 mg/dL 7-25 [facility] WBC Auto (Bld) [#/Vol]Ordere d By: Lex Carroll on 09-21-2022 WBC (Bld) [#/Vol] 4.2 10*3/uL 4.1-10.5 [facility] PROGRESSon 04-05-2017 PROGRESS HNO ID: [id number] Author: Bebe Cunningham Ma Service: (none) Author Type: (none) Type: Progress Notes Filed: 04/05/2017 7:36 AM Note Text: PCP updated Normal [facility] PROGRESS HNO ID: [id number] thor: Tanisha Clarkice: (none)Author Type: PhysicianType: Progress NotesFiled: 04/05/2017 7:36 AMNote Text:This note was created using NoteWriter.Marcio jonathon Blandon is a 61 year old male.Review of SystemsObjectiveThere were no vitals taken for this visit.Physical ExamAssessment and PlanPlease remove me as PCP if he is moving out of state and plans toestablish elsewhere.Thank you. [facility] CNPTOUTREACHon 04-04-2017 CNPTOUTREA Patient Outreach ([facility]) NATHANIEL BLANDON AM ([id number]) 1955 MDate Time Provider Kjysnossbq55/19/17 TANISHA VAZQUEZ [facility] During your visit today, we recorded the following information about you:Bebe Cunningham Ma 04/05/2017 7:36 AM SignedSee refill request 03/30, pt moving to out of [facility] , do you want to updatePCPAmartin Vazquez MD 04/05/2017 7:36 AM SignedThis note was created using Bluwanriter.AfshinWill jonathon León Jamia is a 61 year old male.Review of SystemsObjectiveThere were no vitals taken for this visit.Physical ExamAssessment and PlanPlease remove me as PCP if he is moving out of state and [facility].Thank you.Bebe Cunningham Ma 04/05/2017 7:36 AM SignedPCP updatedAllergies As of Date: 04/04/2017 Noted Allergy ReactionBACTRIM (SULFAMETHOXAZOLE-TRIMETH *12/15/2014 2 - RashDate Reviewed: 01/04/2017Reviewed by: Bebe Cunningham Ma - Fully AssessedReason for Visit: [facility]/Care Gap Outreach [[id number]]Prescriptions as of 04/04/2017 Sig: METOPROLOL SUCCINATE ER 50 MG* Take 1 tablet by mouth once d* LISINOPRIL 20 MG TABLET Take 1 tablet by mouth once d* OMEPRAZOLE 40 MG CAPSULE,SANA* Take 1 capsule by mouth once * ZOLPIDEM 10 MG TABLET Take 0.5 tablets by mouth at * ASPIRIN 81 MG TABLET,DELAYED * Take 81 mg by mouth once cori* MULTIVITAMIN TABLET Take 1 tablet by mouth once d* CALCIUM CARB 1,200 MG-VIT D3 * Take 2 tablets by mouth once *Problem List As Of Date 04/04/2017 Noted Resolved Osteoporosis [M81.0] INVALID FOR* GERD (gastroesophageal reflux disease) [K21.9] INVALID FOR* Recinos's esophagus [K22.70] INVALID FOR* HTN (hypertension) [I10] INVALID FOR* Incisional hernia without mention of obstructio*INVALID FOR* Hx of colonic polyps [Z86.010]Follow-up and Disposition History RecordedEncounter Number: [id number] Status:Closed by BEBE CUNNINGHAM MA on 04/05/17 Normal [facility] PROGRESSon 04-04-2017 PROGRESS HNO ID: [id number] Author: Bebe Cunningham Ma Service: (none) Author Type: (none) Type: Progress Notes Filed: 04/05/2017 7:36 AM Note Text: See refill request 03/30, pt moving to out of [facility] , do you want to update PCP Normal [facility] OBSOLETEon 03-30-2017 OBSOLETE Refill ([facility]) NATHANIEL BLANDON AM ([id number]) 1955 [facility] Time Provider Cislmabcll22/14/17 TANISHA VAZQUEZ [facility] During your visit today, we recorded the following information about you:Bebe Cunningham Ma 03/30/2017 4:25 PM SignedPt due for yearly split in Shyam Cunningham Ma 03/31/2017 3:12 PM SignedPt states they are moving to [place] he has apt to see a new PCP therebut he does not have enough medication till aptScript pending please review/fileVirginia Sauceda CNP, HERNANDEZ 03/31/2017 3:39 PM SignedThe following approved medication requests have been transmitted electronicallyto the mail order pharmacy.Pending Prescriptions Disp Refills METOPROLOL SUCCINATE ER 50 MG TABLET,EXTENDED RELEASE 24 HR 90 tablet 0 Sig: Take 1 tablet by mouth once daily. CHIDI: No LISINOPRIL 20 MG TABLET 90 tablet 0 Sig: Take 1 tablet by mouth once daily. CHIDI: No OMEPRAZOLE 40 MG CAPSULE,DELAYED RELEASE 90 capsule 0 Sig: Take 1 capsule by mouth once daily. CHIDI: NoLydia Denis As of Date: 03/30/2017 Noted Allergy ReactionBACTRIM (SULFAMETHOXAZOLE-TRIMETH *12/15/2014 2 - RashDate Reviewed: 01/04/2017Reviewed by: Bebe Cunningham Ma - Fully AssessedReason for Visit: Refill Request [94]Order(s):metoprolol succinate ER (TOPROL XL) 50 mg 24 hr tabletTake 1 tablet by mouth once daily.Disp: 90 tabletRfl: 0 lisinopril (PRINIVIL) 20 mg tabletTake 1 tablet by mouth once daily.Disp: 90 tabletRfl: 0 Omeprazole 40 mg capsuleTake 1 capsule by mouth once daily.Disp: 90 capsuleRfl: 0Prescriptions as of 03/30/2017 Sig: METOPROLOL SUCCINATE ER 50 MG* Take 1 tablet by mouth once d* LISINOPRIL 20 MG TABLET Take 1 tablet by mouth once d* OMEPRAZOLE 40 MG CAPSULE,SANA* Take 1 capsule by mouth once * ZOLPIDEM 10 MG TABLET Take 0.5 tablets by mouth at * ASPIRIN 81 MG TABLET,DELAYED * Take 81 mg by mouth once cori* MULTIVITAMIN TABLET Take 1 tablet by mouth once d* CALCIUM CARB 1,200 MG-VIT D3 * Take 2 tablets by mouth once *Problem List As Of Date 03/30/2017 Noted Resolved Osteoporosis [M81.0] INVALID FOR* GERD (gastroesophageal reflux disease) [K21.9] INVALID FOR* Recinos's esophagus [K22.70] INVALID FOR* HTN (hypertension) [I10] INVALID FOR* Incisional hernia without mention of obstructio*INVALID FOR* Hx of colonic polyps [Z86.010]Prescriptions ordered this encounter Disp Refills Start End METOPROLOL SUCCINATE ER 50 MG TABLET* 90 t* 0 03/31/2017 Class: [facility] Route: ORAL Sig: Take 1 tablet by mouth once daily. LISINOPRIL 20 MG TABLET 90 t* 0 03/31/2017 Class: [facility] Route: ORAL Sig: Take 1 tablet by mouth once daily. OMEPRAZOLE 40 MG CAPSULE,DELAYED REL* 90 c* 0 03/31/2017 Class: [facility] Route: ORAL Sig: Take 1 capsule by mouth once daily.Medications Discontinued During This Encounter metoprolol succinate ER (TOPROL XL) * 90 t* 3 04/28/2016 03/31/2017 Class: [facility] Route: ORAL Sig: Take 1 tablet by mouth once daily. Disc: Reason for discontinue is not on file. lisinopril (PRINIVIL) 20 mg tablet 90 t* 3 04/28/2016 03/31/2017 Class: [facility] Route: ORAL Sig: Take 1 tablet by mouth once daily. Disc: Reason for discontinue is not on file. Omeprazole 40 mg capsule 90 c* 3 04/28/2016 03/31/2017 Class: [facility] Route: ORAL Sig: Take 1 capsule by mouth once daily. Disc: Reason for discontinue is not on file. Status:Closed by VIRGINIA SAUCEDA CNP on 03/31/17 [facility] 02-13-2017 [facility] Nurse Visit ([facility]) NATHANIEL BLANDON AM ([id number]) 1955 MDate Time Provider Vpoeiqpynk58/30/17 5:50 PM NURSE EYAD COLLAZO [facility] During your visit today, we recorded the following information about you:Referring Provider: SELF [200]Allergies As of Date: 02/13/2017 Noted Allergy ReactionBACTRIM (SULFAMETHOXAZOLE-TRIMETH *12/15/2014 2 - RashDate Reviewed: 01/04/2017Reviewed by: Bebe Cunningham Ma - Fully AssessedPrimary Visit Diagnosis:Need for vaccination [Z23]Prescriptions as of 02/13/2017 Sig: ZOLPIDEM 10 MG TABLET Take 0.5 tablets by mouth at * METOPROLOL SUCCINATE ER 50 MG* Take 1 tablet by mouth once d* LISINOPRIL 20 MG TABLET Take 1 tablet by mouth once d* OMEPRAZOLE 40 MG CAPSULE,SANA* Take 1 capsule by mouth once * ASPIRIN 81 MG TABLET,DELAYED * Take 81 mg by mouth once cori* MULTIVITAMIN TABLET Take 1 tablet by mouth once d* CALCIUM CARB 1,200 MG-VIT D3 * Take 2 tablets by mouth once *Problem List As Of Date 02/13/2017 Noted Resolved Osteoporosis [M81.0] INVALID FOR* GERD (gastroesophageal reflux disease) [K21.9] INVALID FOR* Recinos's esophagus [K22.70] INVALID FOR* HTN (hypertension) [I10] INVALID FOR* Incisional hernia without mention of obstructio*INVALID FOR* Hx of colonic polyps [Z86.010] Status:Closed by JUNAID OFFICE MGOTONIEL Ortega on 02/13/17 [facility] 02-13-2017 [facility] AM ([id number]) 1955 [facility] Rksxdjzcjx05/30/17 [facility] your visit today, we recorded the following information about you:Bebe Cunningham Ma 02/13/2017 2:35 PM SignedMessage from Biophysical Corporationsaint francis hospital & medical centert:Original authorizing provider: Ruben Iqbal would like a refill of the following medications:zolpidem (AMBIEN) 10 mg tab [Tanisha Vazquez MD]Preferred pharmacy: [id number] [place] [address] - [id number] - [phone] [facility] [place] [id number]:Bebe Cunningham Ma 02/13/2017 2:38 PM SignedScript pending please review/fileLast filled 04/28/16Next appt: 02/13/2017 nurse visit (flu shot )Last appt: 01/04/2017Tanisha Vazquez MD 02/13/2017 2:45 PM SignedPlease advise the patient that the prescription has been refilled.Thank you,Shirley Iqbal Ma 02/13/2017 2:55 PM SignedScript called inAllgeneva As of Date: 02/13/2017 Noted Allergy ReactionBACTRIM (SULFAMETHOXAZOLE-TRIMETH *12/15/2014 2 - RashDate Reviewed: 01/04/2017Reviewed by: Bebe Cunningham Ma - Fully AssessedReason for Visit: Refill Request [94]Order(s):zolpidem (AMBIEN) 10 mg tabTake 0.5 tablets by mouth at bedtime as needed.Disp: 30 tabletRfl: 0Prescriptions as of 02/13/2017 Sig: ZOLPIDEM 10 MG TABLET Take 0.5 tablets by mouth at * METOPROLOL SUCCINATE ER 50 MG* Take 1 tablet by mouth once d* LISINOPRIL 20 MG TABLET Take 1 tablet by mouth once d* OMEPRAZOLE 40 MG CAPSULE,SANA* Take 1 capsule by mouth once * ASPIRIN 81 MG TABLET,DELAYED * Take 81 mg by mouth once cori* MULTIVITAMIN TABLET Take 1 tablet by mouth once d* CALCIUM CARB 1,200 MG-VIT D3 * Take 2 tablets by mouth once *Problem List As Of Date 02/13/2017 Noted Resolved Osteoporosis [M81.0] INVALID FOR* GERD (gastroesophageal reflux disease) [K21.9] INVALID FOR* Recinos's esophagus [K22.70] INVALID FOR* HTN (hypertension) [I10] INVALID FOR* Incisional hernia without mention of obstructio*INVALID FOR* Hx of colonic polyps [Z86.010]Prescriptions ordered this encounter Disp Refills Start End ZOLPIDEM 10 MG TABLET 30 t* 0 02/13/2017 Class: Call Rx Route: ORAL Sig: Take 0.5 tablets by mouth at bedtime as needed.Medications Discontinued During This Encounter zolpidem (AMBIEN) 10 mg tab 30 t* 0 04/28/2016 02/13/2017 Class: Print RX Route: ORAL Sig: Take 0.5 tablets by mouth at bedtime as needed. Disc: Reason for discontinue is not on file. Status:Closed by TANISHA VAZQUEZ MD on 02/13/17 [facility] ([facility]) JAMIANATHANIEL Park AM ([id number]) 1955 MDate Time Provider Department01/04/17 9:00 AM TANISHA VAZQUEZ [facility] During your visit today, we recorded the following information about you: Temperature Pulse Blood pressure Weight 98.2 degrees 59/minute 172/93 98 davidAmbadriana Vazquez MD 01/04/2017 9:00 AM Sammy León Jamia is a 61 year old male here for an acute visit with concernabout left foot and toe pain. Area is swollen, tender and deformed. He sawcovering doctor, given naprosyn with no improvement, switched to colchicine,some improvement but still painful.Walking on the side of his foot.He denies any trauma.HISTORY REVIEWED (electronic chart updated):- medical history- medications- allergiesREVIEW OF SYSTEMS:As noted in HPIPHYSICAL EXAMINATION: 829BP: 172/93BP Site: Left ArmBP Position: SittingBP Cuff Size: Regular AdultPulse: (!) 59Temp: 36.8 ?C (98.2 ?F)TempSrc: OralSpO2: 97%Weight: 98 kg (216 lb)General: alert and appropriate, in no distress, ambulates and transfers well,well-hydrated, well nourished, obeseExtremeties: left great toe with edema, slight erythema, some warmth, FROM butpain with flexionASSESSMENT/PLAN:1. Great toe pain, left - ICD9: 729.5, ICD10: M79.675Treated for gout with minimal improvement.Xray as ordered.To consider ortho or immobilization.- XR TOE AP/LAT/OBL LT- XR FOOT GENERAL 3V AP/LAT/OBL LTAmber BAILEY Vazquezeferrfina Provider: TANISHA VAZQUEZ [[id number]]Allergies As of Date: 01/04/2017 Noted Allergy ReactionBACTRIM (SULFAMETHOXAZOLE-TRIMETH *12/15/2014 2 - RashDate Reviewed: 01/04/2017Reviewed by: Bebe Cunningham Ma - Fully AssessedReason for Visit: Acute Visit [896] Cmt: swollen toe x 2 weeksReason For Visit History RecordedPrimary Visit Diagnosis:Great toe pain, left [M79.675]Order(s):XR TOE AP/LAT/OBL LT [[id number]] Order #: [id number] FUTURE XR FOOT GENERAL 3V AP/LAT/OBL LT [[id number]] Order #: [id number] FUTUREPrescriptions as of 01/04/2017 Sig: METOPROLOL SUCCINATE ER 50 MG* Take 1 tablet by mouth once d* LISINOPRIL 20 MG TABLET Take 1 tablet by mouth once d* OMEPRAZOLE 40 MG CAPSULE,SANA* Take 1 capsule by mouth once * ZOLPIDEM 10 MG TABLET Take 0.5 tablets by mouth at * ASPIRIN 81 MG TABLET,DELAYED * Take 81 mg by mouth once cori* MULTIVITAMIN TABLET Take 1 tablet by mouth once d* CALCIUM CARB 1,200 MG-VIT D3 * Take 2 tablets by mouth once *Problem List As Of Date 01/04/2017 Noted Resolved Osteoporosis [M81.0] INVALID FOR* GERD (gastroesophageal reflux disease) [K21.9] INVALID FOR* Recinos's esophagus [K22.70] INVALID FOR* HTN (hypertension) [I10] INVALID FOR* Incisional hernia without mention of obstructio*INVALID FOR* Hx of colonic polyps [Z86.010]Medications Discontinued During This Encounter colchicine (COLCRYS) 0.6 mg tablet 10 t* 0 12/12/2016 01/04/2017 Sig: Two tablets now, then one 2 hours later if pain persists. One tablet daily if symptoms persist. Disc: Course of therapy completed naproxen (NAPROSYN) 250 mg tablet 30 t* 1 12/10/2016 01/04/2017 Route: ORAL Sig: Take 1 tablet by mouth three times daily with meals. Disc: Course of therapy completedEncounter Number: [id number] Status:Closed by TANISHA VAZQUEZ MD on 01/04/17 [facility] 01-04-2017 CNPN Telephone ([facility]) NATHANIEL BLANDON AM ([id number]) 1955 MDate Time Provider Department01/04/17 TANISHA VAZQUEZ [facility] During your visit today, we recorded the following information about you:Tanisha Vazquez MD 01/04/2017 3:01 PM SignedPatient called to discuss results.ANDquot;Subacute mildly impacted fracture 1st proximal phalanx with extensioninto the 1st IP jointANDquot;Start wearing boot, follow-up with ortho as referred.Allergies As of Date: 01/04/2017 Noted Allergy ReactionBACTRIM (SULFAMETHOXAZOLE-TRIMETH *12/15/2014 2 - RashDate Reviewed: 01/04/2017Reviewed by: Bebe Cunningham Ma - Fully AssessedReason for Visit: Results [95]Primary Visit Diagnosis:Closed nondisplaced fracture of proximal phalanx of left great toe, initial encounter [S92.415A]Order(s):CONSUL T TO ORTHOPAEDIC SURGERY [[id number]] Order #: [id number]: 1Prescriptions as of 01/04/2017 Sig: METOPROLOL SUCCINATE ER 50 MG* Take 1 tablet by mouth once d* LISINOPRIL 20 MG TABLET Take 1 tablet by mouth once d* OMEPRAZOLE 40 MG CAPSULE,SANA* Take 1 capsule by mouth once * ZOLPIDEM 10 MG TABLET Take 0.5 tablets by mouth at * ASPIRIN 81 MG TABLET,DELAYED * Take 81 mg by mouth once cori* MULTIVITAMIN TABLET Take 1 tablet by mouth once d* CALCIUM CARB 1,200 MG-VIT D3 * Take 2 tablets by mouth once *Problem List As Of Date 01/04/2017 Noted Resolved Osteoporosis [M81.0] INVALID FOR* GERD (gastroesophageal reflux disease) [K21.9] INVALID FOR* Recinos's esophagus [K22.70] INVALID FOR* HTN (hypertension) [I10] INVALID FOR* Incisional hernia without mention of obstructio*INVALID FOR* Hx of colonic polyps [Z86.010] Status:Closed by TANISHA VAZQUEZ MD on 01/04/17 Normal [facility] PROGRESSon 01-04-2017 PROGRESS HNO ID: [id number] thor: Jaclyn Lowe (Lisa) Ej: (none)Author Type: TechnicianType: Progress NotesFiled: 01/04/2017 9:36 AMNote Text: Radiology Service Progress NotePATIENT NAME: Charles AyalagMRN: [id number] OF SERVICE: January 04, 2017TIME: 9:36 AMPATIENT IDENTITY VERIFICATION COMPLETED USING TWO (2) METHODS: Patientconfirmed name verbally and Date of .PATIENT GENDER DATA: MalePATIENT RELEVANT IMPLANT DATA REVIEWED: Not ApplicableRADIOLOGY DEPARTMENT: General X-ray: Exam(s) Completed: Lower ExtremityX-Ray(s): Foot, Left and Wt. Bearing and Toes, Left:PERIPHERAL IV DATA: Not applicableSIGNED BY: Jaclyn Diaz, RRTSept2016 9:36 AM Normal [facility] PROGRESS HNO ID: [id number] thor: Tanisha Horne: (none)Author Type: PhysicianType: Progress NotesFiled: 01/04/2017 9:00 AMNote Text:Charles Blandon is a 61 year old male here for an acute visit withconcern about left foot and toe pain. Area is swollen, tender anddeformed. He saw covering doctor, given naprosyn with no improvement,switched to colchicine, some improvement but still painful.Walking on the side of his foot.He denies any trauma.HISTORY REVIEWED (electronic chart updated):- medical history- medications- allergiesREVIEW OF SYSTEMS:As noted in HPIPHYSICAL EXAMINATION: 829BP: 172/93BP Site: Left ArmBP Position: SittingBP Cuff Size: Regular AdultPulse: (!) 59Temp: 36.8 ?C (98.2 ?F)TempSrc: OralSpO2: 97%Weight: 98 kg (216 lb)General: alert and appropriate, in no distress, ambulates and transferswell, well-hydrated, well nourished, obeseExtremeties: left great toe with edema, slight erythema, some warmth, FROMbut pain with flexionASSESSMENT/PLAN:1. Great toe pain, left - ICD9: 729.5, ICD10: M79.675Treated for gout with minimal improvement.Xray as ordered.To consider ortho or immobilization.- XR TOE AP/LAT/OBL LT- XR FOOT GENERAL 3V AP/LAT/OBL LTTanisha Vazquez MD Normal [facility] XR FOOT 3V AP/LAT/OBL LTon 0 01-04-2017 XR FOOT 3V AP/LAT/OBL LT * * *Final Report* * *DATE OF EXAM: Jan 04 2017 9:34AM CRX [id number] - XR FOOT 3V AP/LAT/OBL LT / REASON: Pain in left toe(s) * * * * Physician Interpretation * * * * LEFT FOOT X-RAYSLEFT GREAT TOE X-RAYSHISTORY: PAIN, REDNESS, SWELLING GREAT TOE 2-3 WEEKS WITHOUT TRAUMA.. Pain in left toe(s)TECHNIQUE: 3 views of the left foot and 3 views left great toe.COMPARISON: 08/28/2014RESULT:There is a subacute mildly impacted nondisplaced fracture involving the 1st proximal phalanx. There is intra-articular extension of the fracture into the 1st IP joint. No additional fractures are identified. Remainder of the left foot is unremarkable.IMPRESSION:S ubacute mildly impacted fracture 1st proximal phalanx with extension into the 1st IP joint.Mathematician: SRINI Transcribe Date/Time: Jan 04 2017 10:28ADictated by : MALORIE NICHOLS MDThis examination was interpreted and the report reviewed and electronically signed by: MALORIE NICHOLS MD on Jan 04 2017 2:47PM [id number] Normal [facility] XR TOE 3V AP/LAT/OBL LTon XR TOE 3V AP/LAT/OBL LT * * *Final Report* * *DATE OF EXAM: Jan 04 2017 9:34AM CRX [id number] - XR TOE 3V AP/LAT/OBL LT / REASON: Pain in left toe(s) * * * * Physician Interpretation * * * * LEFT FOOT X-RAYSLEFT GREAT TOE X-RAYSHISTORY: PAIN, REDNESS, SWELLING GREAT TOE 2-3 WEEKS WITHOUT TRAUMA.. Pain in left toe(s)TECHNIQUE: 3 views of the left foot and 3 views left great toe.COMPARISON: 08/28/2014RESULT:There is a subacute mildly impacted nondisplaced fracture involving the 1st proximal phalanx. There is intra-articular extension of the fracture into the 1st IP joint. No additional fractures are identified. Remainder of the left foot is unremarkable.IMPRESSION:S ubacute mildly impacted fracture 1st proximal phalanx with extension into the 1st IP joint.Mathematician: PSCB Transcribe Date/Time: Jan 04 2017 10:28ADictated by : MALORIE NICHOLS MDThis examination was interpreted and the report reviewed and electronically signed by: MALORIE NICHOLS MD on Jan 04 2017 2:47PM [id number] Normal [facility] 12-11-2016 [facility] Telephone ([facility]) NATHANIEL BLANDON AM ([id number]) 1955 MDate Time Provider Department12/11/16 COY BLANCHARD [facility] During your visit today, we recorded the following information about you:Coy Blanchard MD, MD 12/11/2016 10:15 AM SignedPlease call and inform patient his uric acid (gout) level is elevated above 8.Goal level is below 5. Patient may continue to have gout flares in the futureunless he can lower his uric acid level, as discussed.Any questions/concerns?Teodoro Romano MA 12/12/2016 8:53 AM SignedLeft message to call office. 12/12/2016 8:53 AMPrema Romano MA 12/12/2016 12:28 PM SignedPatient informed and will work on reducing his Uric acid levels.Allergies As of Date: 12/11/2016 Noted Allergy ReactionBACTRIM (SULFAMETHOXAZOLE-TRIMETH *12/15/2014 2 - RashDate Reviewed: 12/10/2016Reviewed by: Coy Blanchard MD - Fully AssessedReason for Visit: Results [95]Prescriptions as of 12/11/2016 Sig: NAPROXEN 250 MG TABLET Take 1 tablet by mouth three * METOPROLOL SUCCINATE ER 50 MG* Take 1 tablet by mouth once d* LISINOPRIL 20 MG TABLET Take 1 tablet by mouth once d* OMEPRAZOLE 40 MG CAPSULE,SANA* Take 1 capsule by mouth once * ZOLPIDEM 10 MG TABLET Take 0.5 tablets by mouth at * ASPIRIN 81 MG TABLET,DELAYED * Take 81 mg by mouth once cori* MULTIVITAMIN TABLET Take 1 tablet by mouth once d* CALCIUM CARB 1,200 MG-VIT D3 * Take 2 tablets by mouth once *Problem List As Of Date 12/11/2016 Noted Resolved Osteoporosis [M81.0] INVALID FOR* GERD (gastroesophageal reflux disease) [K21.9] INVALID FOR* Recinos's esophagus [K22.70] INVALID FOR* HTN (hypertension) [I10] INVALID FOR* Incisional hernia without mention of obstructio*INVALID FOR* Hx of colonic polyps [Z86.010] Status:Closed by COY BLANCHARD MD on 12/12/16 [facility] JAVIEROVon 12-10-2016 [facility] Office Visit ([facility]) NATHANIEL BLANDON AM ([id number]) 1955 MDate Time Provider Department12/10/16 9:30 AM COY BLANCHARD [facility] During your visit today, we recorded the following information about you: Temperature Pulse Blood pressure Weight 98.5 degrees 88/minute 158/92 95.7 kgMattjose juan Blanchard MD, 12/10/2016 9:59 AM Sammy Blandon is a 61 year old male here complaining of left toe pain.According to the patient, he states he has been diagnosed with gout in the pastand has had similar symptoms. Last night, he was feeling fine. Statesovernight, he suddenly felt severe pain from his left great big toe;sharp/stabbing. Denies any other joint pain. Notes the joint is currentlyred, swollen and warm to touch. States he has been prescribed Medications inthe past which have caused the symptoms resolved within 2 days. Notes he ofteneats meat, drinks a couple of cocktails daily, currently taking a baby aspirindaily. Denies fevers.HISTORY REVIEWED (electronic chart updated):- medical history- medications- allergiesREVIEW OF SYSTEMS:GENERAL: no recent change in weightMUSCULOSKELETAL: as above, no other joint pain/muscle acheSKIN: redPHYSICAL EXAMINATION:BP 158/92 (BP Site: Left Arm, BP Position: Sitting, BP Cuff Size: RegularAdult) Pulse 88 Temp 36.9 ?C (98.5 ?F) (Oral) Wt 95.7 kg (211 lb) [id number]% BMI 30.71 kg/m2BMI 30.71 kg/(m2)General: alert and appropriate, in no distress, well-hydrated, well nourished,happy, smiling, interactive, overweightSkin: Erythematous left great toeExtremeties: Left-sided limping gaitGreater than 50% of total time was spent in counseling and/or coordination ofcare: coordinating care.ASSESSMENT/PLAN:1. Acute gout of left foot, unspecified cause - ICD9: 274.01, ICD10: M10.9- Chronic diagnosis, stable, likely secondary to lifestyle and diet- NAPROXEN 250 MG TABLET- URIC ACID BLOODMattjose juan Blanchard MDPresbyterian Intercommunity Hospitalmaynor Romano [place] 12/10/2016 9:58 AM SignedPhlebotomy was performed per the order of Coy Blanchard M.D.., accessingleft antecubital vein.Needle removed intact. Dressing secured with tape.Patient denies discomfort, dizziness, light-headedness, or weakness and leftthe office ambulatory.Number of tubes drawn: 1Color of tube(s): 1 mintReferring Provider: SELF [200]Allergies As of Date: 12/10/2016 Noted Allergy ReactionBACTRIM (SULFAMETHOXAZOLE-TRIMETH *12/15/2014 2 - RashDate Reviewed: 12/10/2016Reviewed by: Coy Blanchard MD - Fully AssessedReason for Visit: Acute Visit [896] Cmt: left big toe warm can not bend it, has a history of gout woke up this morning with itReason For Visit History RecordedPrimary Visit Diagnosis:Acute gout of left foot, unspecified cause [M10.9]Order(s):naproxen (NAPROSYN) 250 mg tabletTake 1 tablet by mouth three times daily with meals.Disp: 30 tabletRfl: 1 URIC ACID BLOOD [SQURIC] Order #: [id number] as of 12/10/2016 Sig: METOPROLOL SUCCINATE ER 50 MG* Take 1 tablet by mouth once d* LISINOPRIL 20 MG TABLET Take 1 tablet by mouth once d* OMEPRAZOLE 40 MG CAPSULE,SANA* Take 1 capsule by mouth once * ZOLPIDEM 10 MG TABLET Take 0.5 tablets by mouth at * ASPIRIN 81 MG TABLET,DELAYED * Take 81 mg by mouth once cori* MULTIVITAMIN TABLET Take 1 tablet by mouth once d* CALCIUM CARB 1,200 MG-VIT D3 * Take 2 tablets by mouth once * NAPROXEN 250 MG TABLET Take 1 tablet by mouth three *Problem List As Of Date 12/10/2016 Noted Resolved Osteoporosis [M81.0] INVALID FOR* GERD (gastroesophageal reflux disease) [K21.9] INVALID FOR* Recinos's esophagus [K22.70] INVALID FOR* HTN (hypertension) [I10] INVALID FOR* Incisional hernia without mention of obstructio*INVALID FOR* Hx of colonic polyps [Z86.010]Visit Notes:>> Prema Romano MA Sat Dec 10, 2016 9:57 AM Status: SignedPhlebotomy was performed per the order of Coy Blanchard M.D..,accessing left antecubital vein.Needle removed intact. Dressing secured with tape.Patient denies discomfort, dizziness, light-headedness, or weakness andleft the office ambulatory.Number of tubes drawn: 1Color of tube(s): 1 mintPrescriptions ordered this encounter Disp Refills Start End NAPROXEN 250 MG TABLET 30 t* 1 12/10/2016 Route: ORAL Sig: Take 1 tablet by mouth three times daily with meals.Medications Discontinued During This Encounter naproxen sodium (ALEVE) 220 mg tablet 12/10/2016 Class: Historical Med Route: ORAL Sig: Take 220 mg by mouth once daily. Disc: Changing Therapy/Dosage FormDisposition: Return if symptoms worsen or fail to improve.Follow-up and Disposition History RecordedEncounter Number: [id number] Status:Closed by COY BLANCHARD MD on 12/10/16 [facility] PROGRESSon 12-10-2016 PROGRESS HNO ID: [id number] thor: ANABELLA Hawleyervice: (none)Author Type: PhysicianType: Progress NotesFiled: 12/10/2016 9:59 AMNote Text:Charles Blandon is a 61 year old male here complaining of left toe pain.According to the patient, he states he has been diagnosed with gout in [facility] and has had similar symptoms. Last night, he was feeling fine.States overnight, he suddenly felt severe pain from his left great bigtoe; sharp/stabbing. Denies any other joint pain. Notes the joint iscurrently red, swollen and warm to touch. States he has been prescribedMedications in the past which have caused the symptoms resolved within 2days. Notes he often eats meat, drinks a couple of cocktails daily,currently taking a baby aspirin daily. Denies fevers.HISTORY REVIEWED (electronic chart updated):- medical history- medications- allergiesREVIEW OF SYSTEMS:GENERAL: no recent change in weightMUSCULOSKELETAL: as above, no other joint pain/muscle acheSKIN: redPHYSICAL EXAMINATION:BP 158/92 (BP Site: Left Arm, BP Position: Sitting, BP Cuff Size: RegularAdult) Pulse 88 Temp 36.9 ?C (98.5 ?F) (Oral) Wt 95.7 kg (211 lb) SpO2 96% BMI 30.71 kg/m2BMI 30.71 kg/(m2)General: alert and appropriate, in no distress, well-hydrated, wellnourished, happy, smiling, interactive, overweightSkin: Erythematous left great toeExtremeties: Left-sided limping gaitGreater than 50% of total time was spent in counseling and/or coordinationof care: coordinating care.ASSESSMENT/PLAN:1. Acute gout of left foot, unspecified cause - ICD9: 274.01, ICD10: M10.9- Chronic diagnosis, stable, likely secondary to lifestyle and diet- NAPROXEN 250 MG TABLET- URIC ACID Doris Blanchard MD Normal [facility] Uric Acidon 12-10-2016 Urate 8.2 mg/dL High 4.0-8.1 [facility] Comment on above: Performed By: #### U ANTHONY ####[facility] [address] [place], [place] [phone] CNOVon 11-01-2016 [facility] Office Visit ([facility]) NATHANIEL BLANDON AM ([id number]) 1955 [facility] Department11/01/16 9:30 AM ROYCE ARAIZA During your visit today, we recorded the following information about you: Pulse Blood pressure 57/minute 165/82Royce Araiza MD 11/01/2016 2:06 PM SignedDERMATOLOGY CONSULT FOR [facility] DATE: 11/01/2016PRIMARY CARE PHYSICIAN: MORENA Iqbal PROVIDER:Tanisha Vazquez MD[address] [facility] [id number] requested for an opinion regarding the evaluation and treatmentof skin cancer. My final impression and recommendations will be communicatedback to the requesting physician by way of the shared medical record or lettervia US mail.SUBJECTIVECHIEF COMPLAINT: BCCHISTORY OF PRESENT ILLNESSBIOPSY INFORMATION:1. Pathology Results: BCC Nodular and Ulcerated of the LEFT TEMPLEReport Number: Inside Pathology [id number] Performed: 08/10/2016Performed By: [facility] ProviderPast Treatment: No Past Treatment Tumor Type: PrimaryPresent For: unknown amount of month(s)Signs ANDamp; Symptoms: Non-healingPAST DERM HISTORY: No History of Skin CancerFAMILY HISTORY: No History of Skin CancerPAST MEDICAL HISTORYDiagnosis Date- Recinos's esophagus- GERD (gastroesophageal reflux disease)- HTN (hypertension)- Hx of colonic polyps- Osteoporosis- Umbilical herniaPAST SURGICAL [id number]: CHOLECYSTECTOMYNo date: COLONOSCOPY Comment: every 3 yearsNo date: EGD Comment: every 3 yearsSocial History Marital status: Spouse name: Years of education: Number of children:Social History Main Topics Smoking status: Former Smoker Packs/day: 1.00 Years: 20.00 Quit date: 02/18/1991 Alcohol use: Yes 15.0 oz/week 10 Cans of Beer (12oz) per week Comment: 1-2 drinks nightly Drug use: No Sexual activity: Yes Partners with: FemaleFAMILY HISTORY COPD Mother Coronary Artery Disease Mother Coronary Artery Disease Father Hypertension Mother Hypertension Father None SisterALLERGIESAllergen Reactions- Bactrim [Sulfametho* RashMEDICATIONS:metoprolo l succinate ER (TOPROL XL) 50 mg 24 hr tablet Take 1 tablet by mouthonce daily.lisinopril (PRINIVIL) 20 mg tablet Take 1 tablet by mouth once daily.Omeprazole 40 mg capsule Take 1 capsule by mouth once daily.zolpidem (AMBIEN) 10 mg tab Take 0.5 tablets by mouth at bedtime as needed.aspirin, enteric coated (ASPIRIN, ENTERIC COATED) 81 mg EC tablet Take 81 mg bymouth once daily.multivitamin tablet Take 1 tablet by mouth once daily.CALCIUM CARB/VIT D3/MINERALS (CALCIUM CARBONATE-VIT D3-MIN) 1,200 mgcalcium-1,000 unit chew Take 2 tablets by mouth once daily.naproxen sodium (ALEVE) 220 mg tablet Take 220 mg by mouth once daily.ANTICOAGULANTS:ASAN o results found for: INRMEDICAL CONDITIONS: NoneIMPLANTED DEVICES: NoneTRANSPLANT PATIENT: NoOBJECTIVEREVIEW OF SYSTEMS:Patient denies fatigue, fever, weight loss, shortness of breath and chest pain.ASSESSMENTPHYSICAL EXAMBP 165/82 (BP Site: Left Arm, BP Position: Sitting, BP Cuff Size: Large Adult) Pulse (!) 57GENERAL: Well developed, well nourished. No acute distress. Pleasant andcooperative. No Fatigue or malaise.SKIN: No suspicious lesions.PHOTOS: Photos taken with consent.PLANIMPRESSION:Rosita traore etiology, prognosis, and diagnosis of the skin cancer was discussed withthe patient.Various treatment options were reviewed, including, but not limited toelectrodessication and curretage, excision, radiation treatment, frozensections and Mohs surgery.Risks, benefits and alternatives discussed with the patient, including but notlimited to bleeding, infection, nerve damage, damage to underlying structures,wound dehiscence, scarring and recurrence. The patient was given opportunity toask questions, consents to treatment, and agrees to proceed the followingtreatment plan.Biospy #1: BCC Nodular and Ulcerated of the LEFTY TEMPLEArea H: (Mask Areas of the Face - Includes Central Face, Eyelids, Inner/OuterCanthi, Eyebrows, Nose, Chin, Lips, Ears, Periauricular Skin and Taoist)Pre-op Size: 0.6 cm - 1 cm, (0.7cm X 0.8cm)Decision is to proceed with Mohs Surgery today. Mohs closure types werediscussed with patient.Indications for Mohs Surgery include:Anatomic Location where lesion is prone to recur, Type of tumor, Rapid growthand Ill-defined bordersMohs AUC Score is 7-9 = Appropriate[X] Pt given information packet for MOHS procedure including MOHS explanationsheet and Pre-Op instructions.[X] Wound care instructions given.The documentation for this note was completed by Lis Serrano RN acting asscribe for Royce Araiza MD. November 01, 2016 10:23 AM.I agree with the Chief Complaint, ROS, and Past Histories independentlygathered by the clinical support services rep and the remaining scribed noteaccurately describes my personal service to the patient.SIGNATURE: Royce Araiza MD PATIENT NAME: Charles AyalagDATE: November 01, 2016 : 10:20 AM PAGER/CONTACT #:MOHS MICROGRAPHIC OPERATIVE REPORTSERVICE DATE: 11/01/2016SERVICE TIME: 9:10 AMLOCATION:Celine TraoreKaweah Delta Medical Center[address] [place] [address]REFERRING PROVIDER:Tanisha Vazquez MD[address] [facility] [address]XTIFSBECT START TIME: 941PROCEDURE END TIME: URGEON: Dr. Royce AraizaRESIDENT: Dr. Sia AlfaroerANTICOAGULANTS:ASA, AleveIMPLANTED DEVICES: NoneANTIBIOTIC PROPHYLAXIS: Not requiredTRANSPLANT PATIENT: NoPHOTOS: Photos taken with consentRisks, benefits and alternatives were discussed with patient. Informed consentwas obtained and patient was given the opportunity to ask further questionsabout the procedure today and wishes to proceed.VERIFICATION OF PROCEDURE:Procedure to be Performed: Mohs SurgeryPatient Verified By: Name and Date of BirthSite(s) Confirmed: Patient confimed site from image in the EMR. Patient pointedto site(s).Site(s) Marked: Provider marking the site with patient involvement.Relevant documentation, images, implants or special equipment present: YesSIGN IN COMMUNICATION: CompletedTime Out: Team Confirms the Correct Patient, Correct Procedure, Correct Site(s)and Site Marked, Correct Position (if applicable).Time: 941Affirmation of Time Out: YesSign out Discussion: CompletedLESION #1Preoperative Diagnosis: BCC Nodular and Ulcerated of the LEFT TEMPLETumor Type: PrimaryPath Report Available at Bedside: Inside pathology report # [id number] Size: 0.6 cm - 1 cm, (0.7cm X 0.8cm)Lymphadenopathy: NoneIndication for Mohs: Anatomic Location where lesion is prone to recur, Type oftumor, Age of patient and Ill-defined bordersLocation: Area H: (Mask Areas of the Face - Includes Central Face, Eyelids,Inner/Outer Canthi, Eyebrows, Nose, Chin, Lips, Ears, Periauricular Skin andTemple)Preparation: Povidone-iodineLAYER AThe patient was positioned, prepped with alcohol and draped in the usualmanner. Anesthesia was obtained with local infiltration. The clinicallyapparent tumor was then debulked with a curette. A 1-2 mm rim of tissue wasmarked circumferentially around the defect. The area thus outlined was exciseddeep to the subcutis. Hemostasis was achieved with electrocautery. The specimenwas oriented, subdivided into 1 section, chromacoded and submitted forhorizontal frozen sections. The patient tolerated the procedure well and nocomplications were noted.Upon review of the horizontal frozen sections for Layer A, no residual tumorwas identified.CLOSURERationa le for Primary Closure: Given the location and size of the defect and inorder to minimize the pain, bleeding, and infection associated with secondintention healing, the wound was closed with a primary linear closure.Diagnosis: Surgical defect secondary to Mohs micrographic surgery on a Primarytumor type from LEFT SIKHISM (location of tumor).Post-op Defect Size: 1.0 x 0.9 cmINTERMEDIATE CLOSURE: Requiring skin and subcutaneous fat. The beveled edge ofthe Mohs defect was surgically removed. The wound edges were undermined in alldirections to decrease the tension of the wound and facilitate skin edgeapposition. Meticulous hemostasis was achieved with electrocautery. Redundantstanding cones were removed to allow the wound to be closed without distortion.The deep tissue were opposed with 5-0 Absorbable Absorbant sutures. Theepidermal edges were opposed with 5-0 Absorbable sutures. The surgical sitewas cleansed with saline and covered with a bandage as below. The patienttolerated the procedure well and no complications were noted.Final Size: Linear 2.2 cmLOCAL ANESTHETIC: 2cc 1% Lidocaine HCl with Epinephrine 1:100,000ESTIMATED BLOOD LOSS: Less Than Minimal Unless Noted Here.COMPLICATIONS: None, patient tolerated procedure well.TOTAL OPERATIVE TIME: 70 MinutesThe primary surgeon/proceduralist performed the procedure with assistance.I have personally reviewed the specimens and worked as the pathologist.POST OP MEDS: Tylenol 1-2 tabs every 4-6 hours as needed for pain reliefPOST OP CARE: Pressure Dressing applied consisting of Contact Layer: Petrolatumointment and Non stick Telfa padAbsorbent Layer: Gauze padLiquid Adhesive to surrounding skin to adhere dressing.Outer Layer: Mefix tapeMOHS POST OP INSTRUCTIONS GIVEN WITH VERBAL UNDERSTANDING: YesPATIENT DISCHARGED TO POWER AND RECOVERY SUPERINTENDENT/NAME: SelfFOLLOW UP: Return for wound care check in 6 weeksSee Dermatology yearly or as needed for FSE'sPRNThe documentation for this note was completed by Lis Serrano RN acting asscribe for Royce Araiza MD. November 01, 2016 10:29 AM.I agree with the Chief Complaint, ROS, and Past Histories independentlygathered by the clinical support services rep and the remaining scribed noteaccurately describes my personal service to the patient.SIGNATURE: Royce Araiza MD PATIENT NAME: Charles EvansATE: November 01, 2016 : 9:10 AM PAGER/CONTACT #:Lis Serrano RN, RN 11/01/2016 10:29 AM SignedWOUND CARE INSTRUCTIONS - CLOSURE WITH ABSORBABLE SUTURESWe have used dissolving sutures/stiches to close your wound. A return sutureremoval appointment will not be necessary.MATERIALS:1. Tap water2. Q-tips3. Gauze4. Petrolatum (i.e. Vaseline)WOUND CARE:The dressing you have been sent home with is called a pressure dressing. Itshould remain in place for 24 hours. The pressure dressing consists of severalpieces of white gauze secured with white colored tape.Do not wet the pressure dressing for 24 hours. After that you may shower butdo not let the forceful stream of the shower hit the wound directly. The firstday the wound may be tender and may bleed slightly or seep a small amount ofclear fluid.After 24 hours, remove the pressure dressing. The suture line should becleansed daily with tap water. You may gently loosen any crusts with a Q-tipand pat dry. After cleansing the wound, apply a thin layer of Vaseline overthe stitches. Cover the wound with a non-stick dressing cut to the necessarysize. Tape the dressing in place with paper tape.BLEEDING:Careful attention has been given to your wound to prevent bleeding. Theinitial dressing you have on is a pressure dressing to also help preventbleeding.You may notice a small amount of blood on the edges of the dressing the firstday and this is normal. If bleeding is persistent and saturates the dressing,apply firm, steady pressure over the dressing with gauze for 20 minutes. Ifbleeding continues, repeat pressure for an additional 20 minutes. If bleedingpersists, call the doctor or go to the nearest Emergency room while continuingto hold pressure on the wound. Marked swelling at the surgical site mayindicate blood accumulation and the doctor should be notified.PAIN:Post-operat lovely pain is usually minimal. Plain Tylenol or Extra StrengthTylenol, two tablets ever 4 hours, usually relieves any pain you may have. Ifneeded, apply an ice pack (or frozen bag of vegetables) over the dressing thefirst 24 hours every 2-3 hours for 20 minutes. This will relieve swelling,help minimize bruising and also lessen pain. After the first 24 hours, applywarm, moist soaks a few minutes a day if bruised and swollen.APPEARANCE:There may be swelling and bruising around the wound, especially if near theeyes. The area may feel firm and swollen (but will gradually soften and returnto the normal appearance over time). The suture line may appear bright pink topurple and the edges of the wound may be reddened. This will lighten day byday. Slight tenderness to touch is normal. If the wound develops increasingpain, redness, heat, swelling or pus-like drainage, call the office. Those aresigns of infection.As your surgical site heals, you may have occasional sharp brief pains.Itching is common but if severe and associated with a rash, call the office.Numbness may be present but slowly fades away over several months. Notuncommonly, the absorbable stitches under the skin may cause a one or moresmall, red pimples to appear along the incision line. In general this is anannoyance but will not interfere with final wound healing. If the stitch canbe easily seen, it may be removed with small clean scissors and tweezers.DO NOT TAKE ANY MEDICATION CONTAINING ASPIRIN, IBUPROFEN OR SIMILARNON-STEROIDAL PAIN MEDICATIONS, BLOOD THINNERS OR DRINK ANY ALCOHOL 3 DAYSAFTER SURGERY (unless otherwise instructed). Continue to take all otherprescribed medication.NOTES:1. If the wound site is near the eye, saline eyewash (i.e. Dacriose) may beused on a Q-tip to clean the corner of the eye and eyelids.2. Make sure you clean your scissors with alcohol before each dressing change.3. You may have a lo-grade fever (99-100 degrees F) for which Tylenol may beused.4. You may have some clear drainage from the wound. This will stop after a fewdays. If not, please call the office.If you have any questions or concerns, please call the Dermatology SurgeryDepartment to speak to a Nurse at [phone].After 5 pm, nights, and weekends, please call [phone] or and ask for the dermatology surgery fellow implementation manager.Referring Provider: TANISHA VAZQUEZ [[id number]]Allergies As of Date: 11/01/2016 Noted Allergy ReactionBACTRIM (SULFAMETHOXAZOLE-TRIMETH *12/15/2014 2 - RashDate Reviewed: 11/01/2016Reviewed by: Royce Araiza - Fully AssessedPrimary Visit Diagnosis:Basal cell carcinoma of left christian region [C44.319]Prescriptions as of 11/01/2016 Sig: METOPROLOL SUCCINATE ER 50 MG* Take 1 tablet by mouth once d* LISINOPRIL 20 MG TABLET Take 1 tablet by mouth once d* OMEPRAZOLE 40 MG CAPSULE,SANA* Take 1 capsule by mouth once * ZOLPIDEM 10 MG TABLET Take 0.5 tablets by mouth at * ASPIRIN 81 MG TABLET,DELAYED * Take 81 mg by mouth once cori* MULTIVITAMIN TABLET Take 1 tablet by mouth once d* CALCIUM CARB 1,200 MG-VIT D3 * Take 2 tablets by mouth once * NAPROXEN SODIUM 220 MG TABLET Take 220 mg by mouth once vasu*Problem List As Of Date 11/01/2016 Noted Resolved Osteoporosis [M81.0] INVALID FOR* GERD (gastroesophageal reflux disease) [K21.9] INVALID FOR* Recinos's esophagus [K22.70] INVALID FOR* HTN (hypertension) [I10] INVALID FOR* Incisional hernia without mention of obstructio*INVALID FOR* Hx of colonic polyps [Z86.010] Other instructions from your clinician: WOUND CARE INSTRUCTIONS - CLOSURE WITH ABSORBABLE SUTURES We have used dissolving sutures/stiches to close your wound. A return suture removal appointment will not be necessary. MATERIALS: 1. Tap water 2. Q-tips 3. Gauze 4. Petrolatum (i.e. Vaseline) WOUND CARE: The dressing you have been sent home with is called a pressure dressing. It should remain in place for 24 hours. The pressure dressing consists of several pieces of white gauze secured with white colored tape. Do not wet the pressure dressing for 24 hours. After that you may shower but do not let the forceful stream of the shower hit the wound directly. The first day the wound may be tender and may bleed slightly or seep a small amount of clear fluid. After 24 hours, remove the pressure dressing. The suture line should be cleansed daily with tap water. You may gently loosen any crusts with a Q-tip and pat dry. After cleansing the wound, apply a thin layer of Vaseline over the stitches. Cover the wound with a non-stick dressing cut to the necessary size. Tape the dressing in place with paper tape. BLEEDING: Careful attention has been given to your wound to prevent bleeding. The initial dressing you have on is a pressure dressing to also help prevent bleeding. You may notice a small amount of blood on the edges of the dressing the first day and this is normal. If bleeding is persistent and saturates the dressing, apply firm, steady pressure over the dressing with gauze for 20 minutes. If bleeding continues, repeat pressure for an additional 20 minutes. If bleeding persists, call the doctor or go to the nearest Emergency room while continuing to hold pressure on the wound. Marked swelling at the surgical site may indicate blood accumulation and the doctor should be notified. PAIN: Post-operative pain is usually minimal. Plain Tylenol or Extra Strength Tylenol, two tablets ever 4 hours, usually relieves any pain you may have. If needed, apply an ice pack (or frozen bag of vegetables) over the dressing the first 24 hours every 2-3 hours for 20 minutes. This will relieve swelling, help minimize bruising and also lessen pain. After the first 24 hours, apply warm, moist soaks a few minutes a day if bruised and swollen. APPEARANCE: There may be swelling and bruising around the wound, especially if near the eyes. The area may feel firm and swollen (but will gradually soften and return to the normal appearance over time). The suture line may appear bright pink to purple and the edges of the wound may be reddened. This will lighten day by day. Slight tenderness to touch is normal. If the wound develops increasing pain, redness, heat, swelling or pus-like drainage, call the office. Those are signs of infection. As your surgical site heals, you may have occasional sharp brief pains. Itching is common but if severe and associated with a rash, call the office. Numbness may be present but slowly fades away over several months. Not uncommonly, the absorbable stitches under the skin may cause a one or more small, red pimples to appear along the incision line. In general this is an annoyance but will not interfere with final wound healing. If the stitch can be easily seen, it may be removed with small clean scissors and tweezers. DO NOT TAKE ANY MEDICATION CONTAINING ASPIRIN, IBUPROFEN OR SIMILAR NON-STEROIDAL PAIN MEDICATIONS, BLOOD THINNERS OR DRINK ANY ALCOHOL 3 DAYS AFTER SURGERY (unless otherwise instructed). Continue to take all other prescribed medication. NOTES: 1. If the wound site is near the eye, saline eyewash (i.e. Dacriose) may be used on a Q-tip to clean the corner of the eye and eyelids. 2. Make sure you clean your scissors with alcohol before each dressing change. 3. You may have a lo-grade fever (99-100 degrees F) for which Tylenol may be used. 4. You may have some clear drainage from the wound. This will stop after a few days. If not, please call the office. If you have any questions or concerns, please call the Dermatology Surgery Department to speak to a Nurse at [phone]. After 5 pm, nights, and weekends, please call [phone] or and ask for the dermatology surgery fellow implementation manager.Disposition: Return in about 6 weeks (around 12/13/2016) for WOUND CHECK.Follow-up and Disposition History RecordedEncounter Number: [id number] Status:Closed by ROYCE ARAIZA MD on 11/01/16 [facility] PROGRESSon 11-01-2016 PROGRESS HNO ID: [id number] thor: Royce Lindoervice: (none)Author Type: PhysicianType: Progress NotesFiled: 11/01/2016 2:06 PMNote Text:DERMATOLOGY CONSULT FOR MOHSSERVICE DATE: 11/01/2016PRIMARY CARE PHYSICIAN: MORENA Iqbal PROVIDER:Tanisha Vazquez MD[address] [facility] [id number] requested for an opinion regarding the evaluation andtreatment of skin cancer. My final impression and recommendations will becommunicated back to the requesting physician by way of the shared medicalrecord or letter via [place] mail.SUBJECTIVECHIEF COMPLAINT: BCCHISTORY OF PRESENT ILLNESSBIOPSY INFORMATION:1. Pathology Results: BCC Nodular and Ulcerated of the LEFT TEMPLEReport Number: Inside Pathology [id number] Performed: 08/10/2016Performed By: [facility] ProviderPast Treatment: No Past Treatment Tumor Type: PrimaryPresent For: unknown amount of month(s)Signs AND Symptoms: Non-healingPAST DERM HISTORY: No History of Skin CancerFAMILY HISTORY: No History of Skin CancerPAST MEDICAL HISTORYDiagnosis Date- Recinos's esophagus- GERD (gastroesophageal reflux disease)- HTN (hypertension)- Hx of colonic polyps- Osteoporosis- Umbilical herniaPAST SURGICAL [id number]: CHOLECYSTECTOMYNo date: COLONOSCOPY Comment: every 3 yearsNo date: EGD Comment: every 3 yearsSocial History Marital status: Spouse name: Years of education: Number of children:Social History Main Topics Smoking status: Former Smoker Packs/day: 1.00 Years: 20.00 Quit date: 02/18/1991 Alcohol use: Yes 15.0 oz/week 10 Cans of Beer (12oz) per week Comment: 1-2 drinks nightly Drug use: No Sexual activity: Yes Partners with: FemaleFAMILY HISTORY COPD Mother Coronary Artery Disease Mother Coronary Artery Disease Father Hypertension Mother Hypertension Father None SisterALLERGIESAllergen Reactions- Bactrim [Sulfametho* RashMEDICATIONS:metoprolo l succinate ER (TOPROL XL) 50 mg 24 hr tablet Take 1 tablet bymouth once daily.lisinopril (PRINIVIL) 20 mg tablet Take 1 tablet by mouth once daily.Omeprazole 40 mg capsule Take 1 capsule by mouth once daily.zolpidem (AMBIEN) 10 mg tab Take 0.5 tablets by mouth at bedtime asneeded.aspirin, enteric coated (ASPIRIN, ENTERIC COATED) 81 mg EC tablet Take 81mg by mouth once daily.multivitamin tablet Take 1 tablet by mouth once daily.CALCIUM CARB/VIT D3/MINERALS (CALCIUM CARBONATE-VIT D3-MIN) 1,200mgcalcium -1,000 unit chew Take 2 tablets by mouth once daily.naproxen sodium (ALEVE) 220 mg tablet Take 220 mg by mouth once daily.ANTICOAGULANTS:ASAN o results found for: INRMEDICAL CONDITIONS: NoneIMPLANTED DEVICES: NoneTRANSPLANT PATIENT: NoOBJECTIVEREVIEW OF SYSTEMS:Patient denies fatigue, fever, weight loss, shortness of breath and chestpain.ASSESSMENTPHYSI KARLA EXAMBP 165/82 (BP Site: Left Arm, BP Position: Sitting, BP Cuff Size: LargeAdult) Pulse (!) 57GENERAL: Well developed, well nourished. No acute distress. Pleasant andcooperative. No Fatigue or malaise.SKIN: No suspicious lesions.PHOTOS: Photos taken with consent.PLANIMPRESSION:Th e etiology, prognosis, and diagnosis of the skin cancer was discussedwith the patient.Various treatment options were reviewed, including, but not limited toelectrodessication and curretage, excision, radiation treatment, frozensections and Mohs surgery.Risks, benefits and alternatives discussed with the patient, including butnot limited to bleeding, infection, nerve damage, damage to underlyingstructures, wound dehiscence, scarring and recurrence. The patient wasgiven opportunity to ask questions, consents to treatment, and agrees toproceed the following treatment plan.Biospy #1: BCC Nodular and Ulcerated of the LEFTY TEMPLEArea H: (Mask Areas of the Face - Includes Central Face, Eyelids,Inner/Outer Canthi, Eyebrows, Nose, Chin, Lips, Ears, Periauricular Skinand Taoist)Pre-op Size: 0.6 cm - 1 cm, (0.7cm X 0.8cm)Decision is to proceed with Mohs Surgery today. Mohs closure types werediscussed with patient.Indications for Mohs Surgery include:Anatomic Location where lesion is prone to recur, Type of tumor, Rapidgrowth and Ill-defined bordersMohs AUC Score is 7-9 = Appropriate[X] Pt given information packet for MOHS procedure including MOHSexplanation sheet and Pre-Op instructions.[X] Wound care instructions given.The documentation for this note was completed by Lis Serrano RN acting asscribe for Royce Araiza MD. November 01, 2016 10:23 AM.I agree with the Chief Complaint, ROS, and Past Histories independentlygathered by the clinical support services rep and the remaining scribed noteaccurately describes my personal service to the patient.SIGNATURE: Royce Araiza MD PATIENT NAME: Charles AyalagDATE: November 01, 2016 : 10:20 AM PAGER/CONTACT #:MOHS MICROGRAPHIC OPERATIVE REPORTSERVICE DATE: 11/01/2016SERVICE TIME: 9:10 AMLOCATION:Celine Monzon [facility] [place], [place] [address]AQUXLBNPO PROVIDER:Tanisha Vazquez MD[address] [facility] [id number] START TIME: 941PROCEDURE END TIME: URGEON: Dr. Royce AraizaRESIDENT: Dr. Sia AlfaroerANTICOAGULANTS:ASA, AleveIMPLANTED DEVICES: NoneANTIBIOTIC PROPHYLAXIS: Not requiredTRANSPLANT PATIENT: NoPHOTOS: Photos taken with consentRisks, benefits and alternatives were discussed with patient. Informedconsent was obtained and patient was given the opportunity to ask furtherquestions about the procedure today and wishes to proceed.VERIFICATION OF PROCEDURE:Procedure to be Performed: Mohs SurgeryPatient Verified By: Name and Date of BirthSite(s) Confirmed: Patient confimed site from image in the EMR. Patientpointed to site(s).Site(s) Marked: Provider marking the site with patient involvement.Relevant documentation, images, implants or special equipment present: YesSIGN IN COMMUNICATION: CompletedTime Out: Team Confirms the Correct Patient, Correct Procedure, CorrectSite(s) and Site Marked, Correct Position (if applicable).Time: 941Affirmation of Time Out: YesSign out Discussion: CompletedLESION #1Preoperative Diagnosis: BCC Nodular and Ulcerated of the LEFT TEMPLETumor Type: PrimaryPath Report Available at Bedside: Inside pathology report # [id number] Size: 0.6 cm - 1 cm, (0.7cm X 0.8cm)Lymphadenopathy: NoneIndication for Mohs: Anatomic Location where lesion is prone to recur,Type of tumor, Age of patient and Ill-defined bordersLocation: Area H: (Mask Areas of the Face - Includes Central Face,Eyelids, Inner/Outer Canthi, Eyebrows, Nose, Chin, Lips, Ears,Periauricular Skin and Taoist)Preparation: Povidone-iodineLAYER AThe patient was positioned, prepped with alcohol and draped in the usualmanner. Anesthesia was obtained with local infiltration. The clinicallyapparent tumor was then debulked with a curette. A 1-2 mm rim of tissuewas marked circumferentially around the defect. The area thus outlined wasexcised deep to the subcutis. Hemostasis was achieved with electrocautery.The specimen was oriented, subdivided into 1 section, chromacoded andsubmitted for horizontal frozen sections. The patient tolerated theprocedure well and no complications were noted.Upon review of the horizontal frozen sections for Layer A, no residualtumor was identified.CLOSURERationa le for Primary Closure: Given the location and size of the defectand in order to minimize the pain, bleeding, and infection associated withsecond intention healing, the wound was closed with a primary linearclosure.Diagnosis: Surgical defect secondary to Mohs micrographic surgery on aPrimary tumor type from LEFT SIKHISM (location of tumor).Post-op Defect Size: 1.0 x 0.9 cmINTERMEDIATE CLOSURE: Requiring skin and subcutaneous fat. The bevelededge of the Mohs defect was surgically removed. The wound edges wereundermined in all directions to decrease the tension of the wound andfacilitate skin edge apposition. Meticulous hemostasis was achieved withelectrocautery. Redundant standing cones were removed to allow the woundto be closed without distortion. The deep tissue were opposed with 5-0Absorbable Absorbant sutures. The epidermal edges were opposed with 5-0Absorbable sutures. The surgical site was cleansed with saline and coveredwith a bandage as below. The patient tolerated the procedure well and nocomplications were noted.Final Size: Linear 2.2 cmLOCAL ANESTHETIC: 2cc 1% Lidocaine HCl with Epinephrine 1:100,000ESTIMATED BLOOD LOSS: Less Than Minimal Unless Noted Here.COMPLICATIONS: None, patient tolerated procedure well.TOTAL OPERATIVE TIME: 70 MinutesThe primary surgeon/proceduralist performed the procedure with assistance.I have personally reviewed the specimens and worked as the pathologist.POST OP MEDS: Tylenol 1-2 tabs every 4-6 hours as needed for pain reliefPOST OP CARE: Pressure Dressing applied consisting of Contact Layer:Petrolatum ointment and Non stick Telfa padAbsorbent Layer: Gauze padLiquid Adhesive to surrounding skin to adhere dressing.Outer Layer: Mefix tapeMOHS POST OP INSTRUCTIONS GIVEN WITH VERBAL UNDERSTANDING: YesPATIENT DISCHARGED TO POWER AND RECOVERY SUPERINTENDENT/NAME: SelfFOLLOW UP: Return for wound care check in 6 weeksSee Dermatology yearly or as needed for FSE'sPRNThe documentation for this note was completed by Lis Serrano RN acting asscribe for Royce Araiza MD. November 01, 2016 10:29 AM.I agree with the Chief Complaint, ROS, and Past Histories independentlygathered by the clinical support services rep and the remaining scribed noteaccurately describes my personal service to the patient.SIGNATURE: Royce Araiza MD PATIENT NAME: Charles AyalagDATE: November 01, 2016 : 9:10 AM PAGER/CONTACT #: Sammy [facility] CNNURSEon 10-17-2016 [facility] JAMIANATHANIEL Traore ([id number]) 1955 MDate Time Provider Department10/17/16 7:00 AM NURSE [facility] During your visit today, we recorded the following information about you:Constance Mancuso Pickle Water Pump Operator 10/17/2016 1:46 PM SignedPhlebotomy was performed per the order of Tanisha Vazquez M.D.., accessing leftantecubital vein.Needle removed intact. Dressing secured with tape.Patient denies discomfort, dizziness, light-headedness, or weakness and leftthe office ambulatory..Referring Provider: TANISHA VAZQUEZ [[id number]]Allergies As of Date: 10/17/2016 Noted Allergy ReactionBACTRIM (SULFAMETHOXAZOLE-TRIMETH *12/15/2014 2 - RashDate Reviewed: 08/10/2016Reviewed by: Bebe Cunningham Ma - Fully AssessedVisit Diagnoses:Abnormal LFTs [R79.89] Elevated fasting blood sugar [R73.01]Order(s):COMP METABOLIC PANEL [SQCMP] Order #: [id number] HGB A1C [LYHAU2L] Order #: [id number] as of 10/17/2016 Sig: METOPROLOL SUCCINATE ER 50 MG* Take 1 tablet by mouth once d* LISINOPRIL 20 MG TABLET Take 1 tablet by mouth once d* OMEPRAZOLE 40 MG CAPSULE,SANA* Take 1 capsule by mouth once * ZOLPIDEM 10 MG TABLET Take 0.5 tablets by mouth at * ASPIRIN 81 MG TABLET,DELAYED * Take 81 mg by mouth once cori* MULTIVITAMIN TABLET Take 1 tablet by mouth once d* CALCIUM CARB 1,200 MG-VIT D3 * Take 2 tablets by mouth once * NAPROXEN SODIUM 220 MG TABLET Take 220 mg by mouth once vasu*Problem List As Of Date 10/17/2016 Noted Resolved Osteoporosis [M81.0] INVALID FOR* GERD (gastroesophageal reflux disease) [K21.9] INVALID FOR* 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 Oct 17, 2016 1:42 PM Status: SignedPhlebotomy was performed per the order of Tanisha Vazquez M.D.., accessingleft antecubital vein.Needle removed intact. Dressing secured with tape.Patient denies discomfort, dizziness, light-headedness, or weakness andleft the office ambulatory.. Status:Closed by CONSTANCE DE LA ROSA on 10/17/16 Normal [facility] Comp Metabolic Panelon 10-17 Alanine aminotransferase (ALT) 38 U/L Normal 10-54 [facility] Comment on above: Performed By: #### C MP, HBA1C ####[facility] [place], [place] [phone] Albumin 4.1 g/dL Normal 3.9-4.9 [facility] Comment on above: Performed By: #### C MP, HBA1C ####[facility] [place], [place] [phone] Alkaline phosphatase (ALP) 54 U/L Normal 36-108 [facility] Comment on above: Performed By: #### C MP, HBA1C ####[facility] [place], [place] [phone] Anion gap 20 mmol/L High 9-18 [facility] Comment on above: Performed By: #### C MP, HBA1C ####[place] [address] [place] [place] [phone] Aspartate aminotransferase (AST) 43 U/L High 14-40 [facility] Comment on above: Performed By: #### C MP, HBA1C ####[place] [address] [address] [place] [phone] Bilirubin (total) 0.3 mg/dL Normal 0.2-1.3 [facility] Comment on above: Performed By: #### C MP, HBA1C ####[place] [address] [place] [place] [phone] Calcium 9.5 mg/dL Normal 8.5-10.2 [facility] Comment on above: Performed By: #### C MP, HBA1C ####[place] [address] [address] [place] [phone] Chloride 101 mmol/L Normal 97-105 [facility] Comment on above: Performed By: #### C MP, HBA1C ####[place] [address] [address] [place] [phone] CO2 23 mmol/L Normal 22-30 [facility] Comment on above: Performed By: #### C MP, HBA1C ####[place] [address] [place] [place] [phone] Creatinine 1.02 mg/dL Normal 0.73-1.22 [facility] Comment on above: Performed By: #### C MP, HBA1C ####[place] [address] [place] [place] [phone] eGFR (non-black) mL/min/{1.73_m2} Normal [facility] Comment on above: Performed By: #### C MP, HBA1C ####[place] [address] [address] [place], [place] [phone] Result Comment: eGFR (Estimated GFR) Units of measure: mL/min/1.73 meters squaredeGFR is derived from the reexpressed MDRD Study equation using the following parameters: serum creatinine, age, gender and race. The creatinine assay has been calibrated to be traceable to IDMS.An eGFR <60 mL/min/1.73m2 for >3 months is consistent with chronic kidney disease. Refer to KDOQI guidelines for clinical interpretation.In patients with unstable renal function, e.g. those with acute kidney injury, the eGFR may not accurately reflect actual GFR. Glucose mass conc 90 mg/dL Normal 74-99 [facility] Comment on above: Result Comment: The [place] Diabetes Association (ADA) provides guidance for cutoff values for fasting glucose and random glucose. The ADA defines fasting as no caloric intake for at least 8 hours. Fasting plasma glucose results between 100 to 125 mg/dL indicate increased risk for diabetes (prediabetes).Fasting plasma glucose results greater than or equal to 126 mg/dL meet the criteria for diagnosis of diabetes. In the absence of unequivocal hyperglycemia, results should be confirmed by repeat testing. In a patient with classic symptoms of hyperglycemia or hyperglycemic crisis, random plasma glucose results greater than or equal to 200 mg/dL meet the criteria for diagnosis of diabetes.Reference: Standards of Medical Care in Diabetes 2016, [place] Diabetes Association. Diabetes Care. 2016.39(Suppl 1). Performed By: #### C MP, HBA1C ####[facility] [address] [place], [place] [phone] Potassium molar conc 4.6 mmol/L Normal 3.7-5.1 [facility] Comment on above: Performed By: #### C MP, HBA1C ####[facility] [address] [place], [place] [phone] Protein 7.1 g/dL Normal 6.3-8.0 [facility] Comment on above: Performed By: #### C MP, HBA1C ####[facility] [address] [place], [place] [phone] Sodium 144 mmol/L Normal 136-144 [facility] Comment on above: Performed By: #### C MP, HBA1C ####[facility] [place], [place] [phone] Urea nitrogen 18 mg/dL Normal 9-24 [facility] Comment on above: Performed By: #### C MP, HBA1C ####[facility] [place], [place] [phone] Hemoglobin A1con 10-17-2016 Glucose mass conc 120 mg/dL Normal [facility] Comment on above: Result Comment: eAG: (Estimated average glucose) is a calculated value from HgbA1c and is customer service representative of the average blood glucose level in the last 2-3 month period. Performed By: #### C MP, HBA1C ####[address] [phone] Hemoglobin A1c/Hemoglobin.total mass fraction (Bld) 5.8 % High 4.3-5.6 [facility] Comment on above: Result Comment: [place] Diabetes Association guidelines indicate that patients with HgbA1c in the range 5.7-6.4% are at increased risk for development of diabetes, and intervention by lifestyle modification may be beneficial. HgbA1c greater or equal to 6.5% is considered diagnostic of diabetes. Performed By: #### C MP, HBA1C ####[address] [phone] Vital Signs Date Time Vital Sign Value Performing Clinician Facility 07-05-2023 08:58-0400 Body weight 94.85 kg II Rusty Delgado Work Phone: [facility] 07-05-2023 08:58-0400 Diastolic blood pressure 71 mm[Hg] II Rusty Delgado Work Phone: [facility] 07-05-2023 08:58-0400 Heart rate 88 /min II Rusty Delgado Work Phone: [facility] 07-05-2023 08:58-0400 Systolic blood pressure 121 mm[Hg] II Rusty Delgado Work Phone: [facility] 06-13-2023 17:15-0500 Diastolic blood pressure 62 mm[Hg] II Rusty Delgado Work Phone: [facility] 06-13-2023 17:15-0500 Heart rate 72 /min II Rusty Delgado Work Phone: [facility] 06-13-2023 17:15-0500 Respiratory rate 20 /min II Rusty Delgado Work Phone: [facility] 06-13-2023 17:15-0500 SaO2% (BldA) [Mass fraction] 94 % II Rusty Delgado Work Phone: [facility] 06-13-2023 17:15-0500 Systolic blood pressure 101 mm[Hg] II Rusty Delgado Work Phone: [facility] 06-13-2023 13:38-0500 Body height 175.26 cm II Rusty Delgado Work Phone: [facility] 06-13-2023 13:38-0500 Body mass index (BMI) [Ratio] 31.1 kg/m2 II Rusty Delgado Work Phone: [facility] 06-13-2023 13:38-0500 Body weight 95.7 kg II Rusty Delgado Work Phone: [facility] 06-13-2023 12:05-0500 Body temperature 98.2 [degF] II Rusty Delgado Work Phone: [facility] 05-31-2023 15:07-0500 Body height 175.3 cm Janneth Itzkowitz DO Work Phone: [facility] 05-31-2023 15:07-0500 Body mass index (BMI) [Ratio] 32.05 kg/m2 Janneth Itzkowitz DO Work Phone: [facility] 05-31-2023 15:07-0500 Body weight 98.43 kg Janneth Itzkowitz DO Work Phone: [facility] 05-31-2023 15:07-0500 Diastolic blood pressure 72 mm[Hg] Janneth Itzkowitz DO Work Phone: [facility] 05-31-2023 15:07-0500 Systolic blood pressure 120 mm[Hg] Janneth Itzkowitz DO Work Phone: [facility] 05-23-2023 06:44-0500 Body height 175.26 cm II Rusty Delgado Work Phone: [facility] 05-23-2023 06:44-0500 Body weight 99.79 kg II Rusty Delgado Work Phone: [facility] 05-18-2023 14:04-0500 Body height 175.3 cm Janneth Itzkowitz DO Work Phone: [facility] 05-18-2023 14:04-0500 Body mass index (BMI) [Ratio] 32.78 kg/m2 Janneth Itzkowitz DO Work Phone: [facility] 05-18-2023 14:04-0500 Body weight 100.7 kg Janneth Itzkowitz DO Work Phone: [facility] 05-18-2023 14:04-0500 Diastolic blood pressure 74 mm[Hg] Janneth Itzkowitz DO Work Phone: [facility] 05-18-2023 14:04-0500 Systolic blood pressure 120 mm[Hg] Janneth Itzkowitz DO Work Phone: [facility] 04-12-2023 11:00-0500 Body height 175.26 cm Lorna Ortega Other [facility] 04-12-2023 11:00-0500 Body mass index (BMI) [Ratio] 33.22 kg/m2 Lorna Ortega Other [facility] [employer] Other 04-12-2023 11:00-0500 Body weight 102.06 kg Lorna Ortega Other [employer] Other 04-12-2023 11:00-0500 Body weight 102.05 kg II Rusty Delgado Work Phone: [facility] 04-12-2023 11:00-0500 Diastolic blood pressure 67 mm[Hg] Lorna Scovanner Other [facility] 04-12-2023 11:00-0500 Systolic blood pressure 135 mm[Hg] Lorna Scovanner Other [facility] 11-10-2022 11:00-0400 Body weight 99.79 kg Lorna Scovanner Other [employer] Other 11-10-2022 11:00-0400 Diastolic blood pressure 74 mm[Hg] Lorna Scovanner Other [employer] Other 11-10-2022 11:00-0400 Systolic blood pressure 127 mm[Hg] Lorna Scovanner Other [employer] Other 09-21-2022 08:49-0400 Diastolic blood pressure 78 mm[Hg] II Rusty Delgado Work Phone: [facility] 09-21-2022 08:49-0400 Heart rate 50 /min II Rusty Delgado Work Phone: [facility] 09-21-2022 08:49-0400 SaO2% (BldA) [Mass fraction] 99 % II Rusty Delgado Work Phone: [facility] 09-21-2022 08:49-0400 Systolic blood pressure 125 mm[Hg] II Rusty Delgado Work Phone: [facility] 09-21-2022 07:36-0400 Body height 175.26 cm II Rusty Delgado Work Phone: [facility] 09-21-2022 07:36-0400 Body temperature 98.5 [degF] II Rusty Delgado Work Phone: [facility] 09-21-2022 07:36-0400 Body weight 95.25 kg II Rusty Delgado Work Phone: [facility] 09-21-2022 07:36-0400 Respiratory rate 16 /min II Rusty Delgado Work Phone: [facility] Encounters Encounter Date Encounter Type Care Provider Facility Start: 09-05-2023 End: 09-05-2023 ambulatory WARD BENESYEDACT Not Available Start: 08-30-2023 End: 08-30-2023 ambulatory WARD BENEDICT Not Available Start: 08-22-2023 End: 08-23-2023 ambulatory [facility] Start: 08-07-2023 End: 08-07-2023 ambulatory [facility] Start: 07-18-2023 End: 07-18-2023 ambulatory FABY ECHEVARRIA Not Available Start: 07-12-2023 End: 07-13-2023 ambulatory Janneth H Itzkowitz Facility:[facility] Start: 07-12-2023 End: 07-12-2023 Patient encounter procedure Jourdan ARRIAZA [facility] Start: 07-05-2023 End: 07-05-2023 ambulatory II Rusty Delgado Work Phone: [facility] Work Phone: Start: 07-05-2023 End: 07-05-2023 Patient encounter procedure II Rusty Delgado Work Phone: [facility] Work Phone: Start: 06-29-2023 End: 06-29-2023 ambulatory JANNETH H ITZKOWITZ Not Available Start: 06-23-2023 ambulatory Janneth Itzkowitz Facil ity:[facility] Start: 06-22-2023 End: 06-22-2023 ambulatory JANNETH H ITZKOWITZ Not Available Start: 06-13-2023 End: 06-13-2023 ambulatory Janneth Itzkowitz Facility:[facility] Start: 06-13-2023 End: 06-13-2023 Admission to same day surgery center II Rusty Delgado Work Phone: [facility] [place] Start: 06-02-2023 End: 06-02-2023 ambulatory Janneth Itzkowitz Facility:[facility] Start: 06-02-2023 End: 06-02-2023 ambulatory II Rusty Delgado Work Phone: [facility] Work Phone: Start: 06-02-2023 End: 06-02-2023 Patient encounter procedure II Rusty Delgado Work Phone: [facility] Work Phone: Start: 05-31-2023 End: 05-31-2023 ambulatory JANNETH H ITZKOWITZ Not Available Start: 05-31-2023 End: 05-31-2023 Office outpatient visit 25 minutes Janneth H Itzkowitz DO Work Phone: [employer] Comment on above: Fissure in ano (Prim chinmay Dx) Start: 05-23-2023 End: 05-23-2023 ambulatory Minh Griffith Facility:[facility] Start: 05-23-2023 End: 05-23-2023 Admission to same day surgery center II Rusty Delgado Work Phone: [facility] Work Phone: Start: 05-18-2023 End: 05-18-2023 ambulatory JANNETH H ITZKOWITZ Not Available Start: 05-18-2023 End: 05-18-2023 Office outpatient new 45 minutes Janneth H Itzkowitz DO Work Phone: [employer] Comment on above: Fissure in ano Start: 05-11-2023 End: 05-11-2023 ambulatory Lorna Ortega Other [employer] Other Start: 05-11-2023 Office outpatient visit 15 minutes Lorna Ortega [facility] Start: 04-28-2023 End: 04-28-2023 ambulatory Lorna Ortega Other [employer] Other Start: 04-28-2023 Telephone encounter Lorna Raymonnaya [facility] Start: 04-27-2023 End: 04-27-2023 ambulatory Lorna Ortega Other [employer] Other Start: 04-27-2023 Telephone encounter Lorna Raymonnaya [facility] Start: 04-26-2023 End: 04-26-2023 ambulatory Rusty Delgado Facility:[facility] Start: 04-26-2023 End: 04-26-2023 Patient encounter procedure II Rusty Delgado Work Phone: [facility] Work Phone: Start: 04-13-2023 End: 04-13-2023 ambulatory Lorna Raymonnaya Other [employer] Other Start: 04-13-2023 Telephone encounter Lorna Stuartthuy [facility] Start: 04-12-2023 Office outpatient visit 25 minutes Lorna Ortega [facility] Start: 04-12-2023 Telephone encounter Lorna Raymonnaya [facility] Start: 04-12-2023 End: 04-12-2023 ambulatory II Rusty Delgado Work Phone: [facility] [employer] Other Start: 04-12-2023 End: 04-12-2023 Patient encounter procedure II Rusty Delgado Work Phone: [facility] [place] Work Phone: Start: 04-12-2023 End: 04-12-2023 Patient encounter procedure II Rusty Delgado Work Phone: [facility] Work Phone: Start: 04-03-2023 End: 04-03-2023 ambulatory Lorna Ortega Other [employer] Other Start: 04-03-2023 Telephone encounter Lorna Coates [facility] Start: 03-30-2023 End: 03-30-2023 ambulatory RUSTY Gomez DELGADO Not Available Start: 03-24-2023 End: 03-25-2023 ambulatory RUSTY DELGADO Not Available Start: 03-24-2023 End: 03-24-2023 ambulatory RUSTY Gomez DELGADO Not Available Start: 11-18-2022 End: 11-18-2022 ambulatory Lorna Ortega Other [employer] Other Start: 11-18-2022 Telephone encounter Lorna Coates [facility] Start: 11-15-2022 End: 11-15-2022 ambulatory Rusty Delgado Facility:[facility] Start: 11-15-2022 End: 11-15-2022 ambulatory II Rusty Delgado Work Phone: [facility] Work Phone: Start: 11-15-2022 End: 11-15-2022 Patient encounter procedure II Rusty Delgado Work Phone: [facility] [place] Work Phone: Start: 11-10-2022 End: 11-10-2022 ambulatory Lorna Ortega Other [employer] [facility] [employer] Other Start: 11-10-2022 Office outpatient visit 15 minutes Lorna Ortega [facility] Start: 11-03-2022 End: 11-03-2022 ambulatory Lex Carroll Facility:[facility] Start: 11-03-2022 End: 11-03-2022 Patient encounter procedure II Rusty Delgado Work Phone: [facility] Work Phone: Start: 10-26-2022 End: 10-26-2022 ambulatory Lex Carroll Facility:[facility] Start: 10-26-2022 End: 10-26-2022 ambulatory II Rusty Delgado Work Phone: [facility] Work Phone: Start: 10-26-2022 End: 10-26-2022 Departed Referred II Rusty Delgado Work Phone: [facility] Work Phone: Start: 10-26-2022 End: 10-26-2022 Patient encounter procedure II Rusty Delgado Work Phone: [facility] Work Phone: Start: 09-21-2022 End: 09-21-2022 ambulatory Lex Carroll Facility:[facility] Start: 09-21-2022 End: 09-21-2022 Admission to same day surgery center II Rusty Delgado Work Phone: [facility] Work Phone: Start: 09-21-2022 End: 09-21-2022 ambulatory II Rusty Delgado Work Phone: [facility] Work Phone: Start: 02-13-2017 End: 02-13-2017 Ambulatory TANISHA CHEMA [facility] Start: 01-04-2017 End: 01-04-2017 Ambulatory TANISHA [facility] Start: 12-10-2016 End: 12-10-2016 Ambulatory COY BLANCHARD [facility] Start: 11-01-2016 End: 11-02-2016 Ambulatory ROYCE ARAIZA [facility] Start: 10-17-2016 End: 10-17-2016 Ambulatory TANISHA [facility] Procedures Date Procedure Procedure Detail Performing Clinician Start: 06-13-2023 Excision of lesion of anus II Rusty thacker Work Phone: Start: 05-23-2023 Esophageal manometry II Rusty Delgado Work Phone: Start: 04-26-2023 Radionuclide gastric emptying study II Stephen Delgado Work Phone: Start: 11-15-2022 Ultrasonography of liver II Rusty Delgado Work Phone: Start: 11-03-2022 Ultrasound elastography of liver II Lamont Delgado Work Phone: Start: 09-21-2022 Esophagogastroduodenoscopy II Rusty Gr ry Work Phone: Start: 05-12-2022 Colonoscopy Janneth Villegas DO Work Phone: Plan of Treatment Date Care Activity Detail Author Start: 05-12-2032 Screening for malignant neoplasm of colon [facility] Start: 05-26-2024 Urine screening for protein Diabetes: Urine Protein Screening [facility] Start: 05-24-2024 Glaucoma screening Diabetes: Retinopathy Screening [facility] Start: 08-24-2023 Hemoglobin A1c measurement Diabetes: Hemoglobin A1C [facility] Start: 06-13-2023 [facility] Start: 06-13-2023 [facility] Start: 06-13-2023 End: 06-13-2023 Patient encounter procedure 06/13/2023 1:30 PM EST Procedure Visit [facility] Janneth Villegas, DO [address] [address] [facility] Start: 06-09-2023 End: 06-09-2023 Patient encounter procedure 06/09/2023 10:30 AM EST Office [facility] [address] [place] [address] Janneth Villegas, DO [address] [place] [address] [facility] Start: 05-26-2023 Medicare Annual Wellness (AWV) Medicare Annual Wellness (AWV) [facility] Start: 05-23-2023 [facility] Start: 02-23-2023 Hemoglobin A1c measurement Diabetes: Hemoglobin A1C [facility] Start: 11-03-2022 [facility] Start: 11-03-2022 Ultrasound elastography of liver Fibroscan (Not Applicable) [facility] Start: 10-26-2022 Ultrasound elastography of liver Fibroscan (Not Applicable) [facility] Start: 10-26-2022 [facility] Start: 09-21-2022 Hepatitis B core antibody measurement [facility] Start: 09-21-2022 End: 09-21-2022 [facility] Start: 1974 Urine screening for protein Diabetes: Urine Protein Screening [facility] Start: 08-03-1959 Pneumococcal Vaccine: 65+ Years (1 - PCV) Pneumococcal Vaccine: 65+ Years (1 - PCV) [facility] Start: 1955 Medicare Annual Wellness (AWV) Medicare Annual Wellness (AWV) [facility] Start: 1955 Screening for malignant neoplasm of colon [facility] Actin smooth muscle IgG Ab [Units/volume] in Serum [facility] Alpha 1 antitrypsin [Mass/volume] in Serum or Plasma [facility] Alpha 1 antitrypsin phenotyping [Identifier] in Serum or Plasma by Immunofixation [facility] Cefuroxime free [Mass/volume] in Serum or Plasma [facility] Ceruloplasmin [Mass/volume] in Serum or Plasma [facility] Hepatitis B virus galindo rface Ab [Presence] in Serum [facility] Hepatitis B virus galindo rface Ag [Presence] in Serum or Plasma by Immunoassay [facility] Hepatitis C virus Ig G Ab [Presence] in Serum or Plasma by Immunoassay [facility] Mitochondria M2 IgG Ab [Units/volume] in Serum [facility] Patient referral [facility] Work Phone: Immunizations Immunization Date Immunization Notes Care Provider Matt swan 01-24-2023 influenza virus vaccine, unspecified formulation Jourdan ARRIAZA [facility] 04-30-2022 zoster vaccine cheyenne Vilelgas DO Work Phone: [facility] 03-22-2022 tetanus toxoid, reduced diphtheria toxoid, and acellular pertussis vaccine, adsorbed Janneth Itzkowitz DO Work Phone: [facility] 02-01-2022 influenza virus vaccine, unspecified formulation [employer] [facility] 02-01-2022 influenza, high dose seasonal, preservative-free Janneth Itzkowitz DO Work Phone: [facility] 02-17-2021 influenza virus vaccine, unspecified formulation Jourdan Palingen [facility] 02-17-2021 influenza, high dose seasonal, preservative-free Janneth Itzkowitz DO Work Phone: [facility] 02-13-2017 influenza virus vaccine, unspecified formulation [employer] [facility] 02-13-2017 influenza, injectabl e, quadrivalent, contains preservative Janneth Itzkowitz DO Work Phone: [facility] 02-01-2016 influenza virus vaccine, unspecified formulation [employer] [facility] 02-01-2016 influenza, seasonal, injectable Janneth Itzkowitz DO Work Phone: [facility] 03-24-2015 zoster vaccine, live Janneth Itzkowitz DO Work Phone: [facility] 02-10-2015 influenza virus vaccine, unspecified formulation [employer] [facility] 02-10-2015 influenza, seasonal, injectable Janneth Itzkowitz DO Work Phone: [facility] 01-14-2014 influenza virus vaccine, unspecified formulation [employer] [facility] 01-14-2014 influenza, seasonal, injectable Janneth Itzkowitz DO Work Phone: [facility] 01-23-2013 influenza virus vaccine, unspecified formulation Janneth Villegas DO Work Phone: [facility] Payers Date Payer Category Payer Self-pay 2022 Medicare AETNA MEDICARE A DVANTAGE AETNA MEDICARE REPLACEMENT [id number] 2022-Present [address] [place] [address] [id number] 2002 Private Health Insurance [id number] 1953 Unknown [id number] [id number]. 727 1953 Unknown [id number] 2.16.840.1.293050.3.579.2. 1258 1953 Unknown [id number] 2.16.840.1.911793.3.579.2. 1258 1953 Unknown [id number] 2.16.840.1.423035.3.579.2. 9 1953 Unknown [id number] 2.16.840.1.866582.3.579.2. 1258 1953 Unknown [id number] 2.16.840.1.484857.3.579.2. 125 1953 Unknown [id number] 2.16.840.1.134269.3.579.2. 1258 1953 Unknown [id number] 2.16.840.1.328965.3.579.2. 125 1953 Unknown [id number] 2.16.840.1.503189.3.579.2. 125 1953 Unknown [id number] 2.16.840.1.647304.3.579.2. 1259 1953 Unknown [id number] 2.16.840.1.403019.3.579.2. 1259 Unknown [id number] 2.16.840.1.852901.3.579.2. 531 Unknown [id number] 2.16.840.1.341410.3.579.2. 531 Unknown [id number] 2.16.840.1.122030.3.579.2. 531 Unknown [id number] 2.16.840.1.907051.3.579.2. 531 Unknown [id number] 2.16.840.1.382772.3.579.2. 531 Unknown [id number] 2.16.840.1.796205.3.579.2. 531 Unknown [id number] 2.16.840.1.256454.3.579.2. 531 Unknown [id number] 2.16.840.1.626507.3.579.2. 531 Unknown [id number] 2.16.840.1.635389.3.579.2. 531 Social History Date Type Detail Facility Start: 09-21-2022 End: 06-13-2023 Tobacco smoking status WAIS Ex-smoker (finding) [facility] Start: 1955 Sex Assigned At Male F [facility] Start: 05-18-2023 End: 05-31-2023 Sex Assigned At [facility] End: 04-17-1989 History of tobacco use Current smoker [facility] End: 04-17-1989 History of tobacco use Cigarette Smoker [facility] Start: 11-17-2022 Tobacco use and exposure Smokeless tobacco non-user [facility] Start: 05-18-2023 End: 05-31-2023 History of Social function [facility] Start: 1955 Sex Assigned At Not on file [facility] Tobacco smoking status No Smokin g Status Entered [facility] Goals Date Patient Goal Desired Activity /State Clinical Notes 09-21-2022 to 08-07-2023 Janneth H Long, DO - 05/31/2023 3:15 PM Vickygeena Rouse Long, DO - 05/18/2023 2:00 PM EST Note Date & Type Note Facility 08-07-2023 Note Attestation signed by Arias Jesus MD at 08/07/2023 2:45 PM I personally saw the patient with the fellow, I performed/participated in the critical/david portions of the service, I was directly involved in the management and treatment plan of the patient. I discussed the case management with the fellow and agree with the findings and plan as documented by the fellow. [facility] G[facility]enterology New Patient Visit - History & Physical CHIEF COMPLAINT Chief Complaint Patient presents with New Patient Weight Loss 30 pound weight loss since . Pt recently had surgery for 3 polyps removed and 1 hemorrhoid removal. Dyskenisia of esophgaus Nausea Vomiting Pt has a urge to but does not vomit. HISTORY OF PRESENT ILLNESS: Charles Blandon is a 68 y.o. male with hx of recinos's esophagus getting EGD every 3 years, last EGD, 2021 presents to the office for establish care. Patient reported feeling nausea and vomiting. Patient reported started symptoms at thanks giving. Patient reported he feels dry heaves every day. Once he eats he feels full right away. Denies dysphagia. Patient reported significant weight loss from 220 Lb-to 193. Patient reported taking intermittent use if NSAID ( adavil ), denies melena. Patient reported noticing hematochezia with recent hemorrhoidal banding for internal and external hemorrhoids, currently taking miralax. In terms of BM he goes every other day, BM he describe is mostly loose. Last colonoscopy 4-5 yrs ago reported to have 2 small polyps were removed. HRM showed EGJ-Mean IRP 7.7 Frequent failed perisitaklsis 30% failed swallow consistent with ineffecive esophagela motility diosroder hx of dyspepsia, GERD,Cirrhosis, underwent GES was unremarkable. 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 No pertinent past medical history. Past Surgical History: History reviewed. No pertinent surgical history. FAMILY HISTORY: No family history on file. SOCIAL HISTORY: Social History Tobacco Use Smoking status: Never Smokeless tobacco: Never Vaping Use Vaping Use: Never used Substance Use Topics Alcohol use: Yes Comment: occasionally Drug use: Never ALLERGIES: Patient has no known allergies. Current Medications: Current Outpatient Medications: baclofen (Lioresal) 20 mg tablet, Take by mouth 3 times a day., Disp: , Rfl: calcium carbonate-vitamin D3 500 mg-3.125 mcg (125 unit) tablet tablet, 1 tablet., Disp: , Rfl: famotidine (Pepcid) 40 mg tablet, 40 mg., Disp: , Rfl: furosemide (Lasix) 40 mg tablet, 40 mg., Disp: , Rfl: lansoprazole (Prevacid SoluTab) 30 mg disintegrating tablet, Take 15 mg by mouth., Disp: , Rfl: lisinopril 20 mg tablet, TAKE 1 TABLET BY MOUTH EVERY DAY FOR 100 DAYS, Disp: , Rfl: magnesium oxide (Mag-Ox) 400 mg tablet, Take 500 mg by mouth in the morning., Disp: , Rfl: multivitamin tablet, Take 1 tablet by mouth in the morning., Disp: , Rfl: promethazine (Phenergan) 25 mg tablet, Take 12.5-25 mg by mouth every 8 (eight) hours if needed., Disp: , Rfl: saccharomyces boulardii (Florastor) 250 mg capsule, Take 250 mg by mouth in the morning and at bedtime., Disp: , Rfl: spironolactone (Aldactone) 100 mg tablet, 100 mg., Disp: , Rfl: aspirin 81 mg EC tablet, Take 81 mg by mouth in the morning., Disp: , Rfl: diphenoxylate-atropine (Lomotil) 2.5-0.025 mg tablet, 1 tablet., Disp: , Rfl: esomeprazole (NexIUM) [address] capsule, 40 mg., Disp: , Rfl: lidocaine (Uro Jet-Glydo) 2 % gel, Apply topically., Disp: , Rfl: ugxftrhwh-avpwgu-taciil-petrol 5-0.25-14.4-15 % cream, APPLY TO AFFECTED AREA NEEDED FOR MILD PAIN, Disp: , Rfl: metoprolol succinate XL (Toprol-XL) 50 mg 24 hr tablet, Take 50 mg by mouth in the morning., Disp: , Rfl: omeprazole (PriLOSEC) [address] capsule, Take 1 capsule by mouth in the morning., Disp: , Rfl: ondansetron (Zofran) 4 mg tablet, 4 mg., Disp: , Rfl: oxyCODONE-acetaminophen (Percocet) 5-325 mg tablet, TAKE 1 TABLET BY MOUTH EVERY 6 HOURS NEEDED FOR PAIN FOR 7 DAYS, Disp: , Rfl: zolpidem (A (more content not included)... [facility] 05-31-2023 History of Present illness Narrative Images from the original note were not included. Charles Blandon 1955 Charles Blandon is a 67 y.o. male presents with chief complaint of pain increasingly worse and wants to discuss surgery (Anal fissure) HPI: HPI Bill states the medication is not helping and he still has severe rectal pain. He states the sitz baths burn even though he only uses warm water. SUBJECTIVE: MEDICATIONS: ALLERGIES Current Outpatient Medications Medication Instructions diphenoxylate-atropine (Lomotil) 2.5-0.025 MG tablet 1 tablet, Oral, 3 times daily PRN esomeprazole (NEXIUM) 40 mg, Oral, Daily before breakfast famotidine (PEPCID) 40 mg, Oral, 2 times daily furosemide (Lasix) 40 MG tablet TAKE 1 TABLET BY MOUTH EVERY DAY FOR 30 DAYS lisinopril 20 mg, Oral, Daily Multiple Vitamins-Minerals (Multi For Him) tablet Daily spironolactone (Aldactone) 100 MG tablet TAKE 1 TABLET BY MOUTH EVERY DAY FOR 30 DAYS No Known Allergies PAST MEDICAL HISTORY: SOCIAL HISTORY SURGICAL HISTORY: Past Medical History: Diagnosis Date GERD (gastroesophageal reflux disease) History of colon polyps Hypertension (CMS/HCC) Social History Tobacco Use Smoking status: Former Types: Cigarettes Quit date: 1989 Years since quittin.1 Smokeless tobacco: Never Substance Use Topics Drug use: Never Past Surgical History: Procedure Laterality Date ADENOIDECTOMY CHOLECYSTECTOMY COLONOSCOPY 2021 EGD ELBOW SURGERY 2020 HERNIA REPAIR TONSILLECTOMY FAMILY HISTORY Family History Problem Relation Name Age of Onset Hypertension Father Breast cancer Neg Hx Colon cancer Neg Hx Ovarian cancer Neg Hx REVIEW OF SYMPTOMS: Review of Systems Constitutional: Negative for activity change. HENT: Negative for hearing loss and voice change. Respiratory: Negative for shortness of breath. Cardiovascular: Negative for chest pain. Gastrointestinal: Positive for rectal pain. Negative for abdominal distention, diarrhea, nausea and vomiting. Neurological: Negative for dizziness, seizures and headaches. Psychiatric/Behavioral: Negative. All other systems reviewed and are negative. OBJECTIVE: Visit Vitals BP 120/72 Ht 5' 9 Wt 217 lb BMI 32.05 kg/m Smoking Status Former BSA 2.19 m Physical Exam Vitals reviewed. HENT: Head: Normocephalic. Eyes: Pupils: Pupils are equal, round, and reactive to light. Cardiovascular: Rate and Rhythm: Normal rate and regular rhythm. Pulmonary: Effort: Pulmonary effort is normal. Abdominal: General: Bowel sounds are normal. Palpations: Abdomen is soft. Genitourinary: Comments: Rectal exam shows a sentinel tag and pain on exam in the posterior rectum, consistent with a fissure in ano Musculoskeletal: General: Normal range of motion. Skin: General: Skin is warm. Neurological: General: No focal deficit present. Mental Status: He is alert. ASSESSMENT AND PLAN: Assessment/Plan Problem List Items Addressed This Visit Fissure in ano - Primary Since medical treatment was not successful, I suggest we proceed with an EUA and fissurectomy. I discussed the procedure, and expected post-op recovery time. He is in agreement and surgery has been scheduled. documented in this encounter [facility] 05-18-2023 History of Present illness Narrative Images from the original note were not included. Charles Blandon 1955 Charles Blandon is a 67 y.o. male presents with chief complaint of painful hemorrhoid HPI: HPI Huber states he has a hemorrhoid for the last 5-6 weeks. He was seen by Dr. 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 Huber has had a colonoscopy within the last 5 years. Huber has nausea due to the pain. He had rectal bleeding when it first started but that has stopped. He states it feels like it gets bigger and smaller without relation to BM's. It is very difficult for him to sit. SUBJECTIVE: MEDICATIONS: ALLERGIES Current Outpatient Medications Medication Instructions diphenoxylate-atropine (Lomotil) 2.5-0.025 MG tablet 1 tablet, Oral, 3 times daily PRN esomeprazole (NEXIUM) 40 mg, Oral, Daily before breakfast famotidine (PEPCID) 40 mg, Oral, 2 times daily furosemide (Lasix) 40 MG tablet TAKE 1 TABLET BY MOUTH EVERY DAY FOR 30 DAYS lisinopril 20 mg, Oral, Daily Multiple Vitamins-Minerals (Multi For Him) tablet Daily spironolactone (Aldactone) 100 MG tablet TAKE 1 TABLET BY MOUTH EVERY DAY FOR 30 DAYS No Known Allergies PAST MEDICAL HISTORY: SOCIAL HISTORY SURGICAL HISTORY: Past Medical History: Diagnosis Date GERD (gastroesophageal reflux disease) History of colon polyps Hypertension (CMS/HCC) Social History Tobacco Use Smoking status: Former Types: Cigarettes Quit date: 1989 Years since quittin.1 Smokeless tobacco: Never Substance Use Topics Drug use: Never Past Surgical History: Procedure Laterality Date ADENOIDECTOMY CHOLECYSTECTOMY COLONOSCOPY 2021 EGD ELBOW SURGERY 2020 HERNIA REPAIR TONSILLECTOMY FAMILY HISTORY Family History Problem Relation Name Age of Onset Hypertension Father Breast cancer Neg Hx Colon cancer Neg Hx Ovarian cancer Neg Hx REVIEW OF SYMPTOMS: Review of Systems Constitutional: Negative for activity change. HENT: Negative for hearing loss and voice change. Respiratory: Negative for shortness of breath. Cardiovascular: Negative for chest pain. Gastrointestinal: Positive for nausea and rectal pain. Negative for abdominal distention and vomiting. Neurological: Positive for dizziness. Negative for seizures and headaches. Psychiatric/Behavioral: Negative. All other systems reviewed and are negative. OBJECTIVE: Visit Vitals BP 120/74 Ht 5' 9 Wt 222 lb BMI 32.78 kg/m Smoking Status Former BSA 2.22 m Physical Exam Vitals reviewed. HENT: Head: Normocephalic. Eyes: Pupils: Pupils are equal, round, and reactive to light. Cardiovascular: Rate and Rhythm: Normal rate and regular rhythm. Pulmonary: Effort: Pulmonary effort is normal. Abdominal: General: Bowel sounds are normal. Palpations: Abdomen is soft. Genitourinary: Comments: Rectal exam shows a sentinel tag and pain on exam in the posterior rectum. A rigid sigmoidoscopy was done to 10 cm that showed normal stool, no hemorrhoids, no bleeding and confirmed the posterior fissure in ano. Musculoskeletal: General: Normal range of motion. Skin: General: Skin is warm. Neurological: General: No focal deficit present. Mental Status: He is alert. ASSESSMENT AND PLAN: Assessment/Plan Problem List Items Addressed This Visit Fissure in ano We discussed the diagnosis and I recommended use of sitz baths, baby wipes and stool softeners as needed. I will prescribe Diltiazem Gel and see him In 3 weeks for recheck documented in this encounter [facility] 05-11-2023 Evaluation note Encounter Date Diagnosis Assessment Notes Apr, Nausea (ICD-10 - R11.0) Apr, Cirrhosis of liver (ICD-10 - K74.60) Apr, Early satiety (ICD-10 - R68.81) [facility] Other 12-28-2023 Evaluation note* Encounter Date Diagnosis Assessment Notes Treatment Notes Treatment Clinical Notes Mar, Lower abdominal pain (ICD-10 - R10.30) [facility] Other 12-27-2023 Evaluation note* Encounter Date Diagnosis Assessment Notes Treatment Notes Treatment Clinical Notes Mar, Nausea (ICD-10 - R11.0) Patient to stop Pepcid 20mg once daily and will have him start Pepcid 40mg twice daily, lunch and dinner time. Mar, Lower extremity edema (ICD-10 - R60.0) Mar, Cirrhosis of liver (ICD-10 - K74.60) Will repeat CMP to check liver and kidney functions, if kidney functions are normal will consider placing patient on lasix and spironolactone Patient advised to avoid alcohol consumption. Mar, Early satiety (ICD-10 - R68.81) Mar, Bloating (ICD-10 - R14.0) [facility] Other 07-27-2023 Evaluation note* Encounter Date Diagnosis Assessment Notes Treatment Notes Treatment Clinical Notes Oct, Recinos's esophagus determined by biopsy (ICD-10 - K22.70) Oct, Fatty liver (ICD-10 - K76.0) Pt advised to proceed with ultrasound of liver Pt to start Pepcid 20mg in the evening Oct, Diarrhea, unspecified type (ICD-10 - R19.7) Pt states he has explosive diarrhea. Pt advised to take dicyclomine 10mg TID. Pt advised to start this BID, morning and evening. Pt advised to start fiber gummies. Pt advised to take three at a time. Pt advised to start probiotic ([employer]) Pt RTO 3 MONTHS [facility] Other 06-07-2023 [facility] No data available for this section [facility] Evaluation noteNo assessment information available [facility] Work Phone: Evaluation noteNo InformationNort [employer] Other Evaluation note* Diagnosis Fissure in ano Anal fissure [facility] Diagnosis Fissure in ano- Primary Anal fissure [facility]* Diagnosis Onset Date Resolution Status Cirrhosis acute Dyspepsia and disorder of function of stomach acute Emesis acute Esophageal dysmotility acute [facility] Work Phone: History and physical note Author Lex Carroll [facility] September 21, 2022 8:04am Note Date/Time September 21, 2022 8:04a m [facility] [address] [place] [address] Gastroenterology H&P Signed Patient: Charles Blandon MR#: [id number] : 1955 Acct:[id number] Age/Sex: 67 / M Adm Date: 3 Loc: Room: Type: [facility] Attending Dr: Lex Carroll MD Copies to: MD Rusty Triana II, MD~ Date of Service: 09/21/2022 HISTORY & PHYSICAL: Patient's history with special attention to the cardiovascular, pulmonary systems and the current problem was reviewed with the patient immediately prior to the procedure. Present medications and doses reviewed in the EMR. Allergies and pertinent laboratory tests were also reviewedat this time in the EMR. The physical examination, as below, was then performed. Indication, assessment and HPI: 67-year-old male with a history of Recinos's esophagus [place]. Has been getting regular surveillance intervals and reports that his biopsies have all been normal . Denies heartburn on omeprazole 40 mg daily. Denies dysphagia. Family history of GI malignancy? No PHYSICAL EXAMINATION Mouth and Pharynx : Moist mucus membranes, normal dentition Cardiac: Regular rate, regular rhythm Pulmonary: Clear to auscultation bilaterally, no wheezing Neurological: Alert and oriented x3, no focal deficits noted Abdomen: Abdomen soft, non-tender REVIEW OF SYSTEMS Constitutional: Denies malaise, fevers Cardiovascular: Denies chest pain, palpitations Respiratory: Denies shortness of breath, wheezing Gastrointestinal: Per HPI Genitourinary: Denies dysuria, polyuria Musculoskeletal: Denies joint swelling, joint stiffness Neurological: Denies numbness, tingling Integumentary: Denies rashes, skin lesions Endocrine: Denies fatigue, weight loss Written informed consent obtained from the patient. Risks (including but not limited to perforation, infection, bloating, bleeding, need for emergent surgeryand loss of life), benefits and alternatives explained and questions answered. The patient verbalized understanding. Based on history patient is an appropriate candidate for the procedure. Lex Carroll MD Documented By: Lex Carroll MD 09/21/22 0803 Signed By: <Electronically signed by Lex Carroll MD> 09/21/22 0804 [facility] Work Phone: History general Narrative - Reported* Type Description Date Medical History hypertension Medical History GERD Surgical History gallbladder Surgical History elbow surgery Surgical History mesh placement [facility] Other Hospital Discharge instructions Additional Instructions DISCHARGE INSTRUCTIONS FOR UPPER ENDOSCOPY WHAT TO EXPECT: - You may feel full, gassy or cramping after your procedure. In some cases, this may be from a few hours to a day. Walking may help relieve the discomfort. - Your throat may feel sore today from the scope that the doctor passed through your throat to visualize your stomach. Take a throat lozenge or suck on ice to ease the discomfort. - You may notice some streaks of blood in your sputum if the doctor has taken a biopsy. - You should begin to recover from anesthesia within 1 hour of the procedure, however may feel groggy for the next 24 hours. DO's AND DON'Ts: - Call your doctor right away if you have a hard abdomen, severe pain, vomiting or if you cough up large amounts of blood. - Call your doctor if you develop any rashes, hives or difficulty breathing. - If you take 81 mg aspirin for your heart it is safe to resume this medication. - If you take other blood thinner medications your doctor will instruct you when these can safely be resumed. - Do NOT drive for 24 hours. - Do NOT operate machinery such as power tools, lawn mowers, snow blowers, sewing machines, etc. for 24 hours. - Avoid alcoholic beverages and drugs for allergies, nerves, or sleep. - Do NOT stay alone. Do NOT leave your child unattended. - Do NOT make important personal or business decisions or sign any legal documents. - Eat solid foods and drink liquids in smaller amounts than usual until normal appetite returns. If you should experience an upset stomach, liquids high in sugar content (soda, [employer], non-acid juices) are recommended. - Do NOT smoke. - Do take it easy today. You need not stay in bed, but avoid strenuous activities such as jogging or working out. FOLLOW UP & RECOMMENDATIONS: -Increase your omeprazole 40 mg twice daily, 30 minutes before a meal -The office will make you a follow-up appointment in 4 to 6 weeks -Notify the doctor if you have any problems. -Follow up with PCP. -Office number [phone].[facility] Work Phone: Hospital Discharge instructions No data available for this section [facility] Progress note No data available for this section [facility] Summary Purpose Family History No Family History Records Found Relationship Condition Age at Onset Recorded Date/T nhi Not Specified No pertinent family history Unknown Relationship Condition Age at Onset Recorded Date/T nhi Not Specified No pertinent family history Unknown father Unknown Hypertension Unknown family member Hypertension Unknown Not Specified Unknown Advance Directives No Advanced Directives Records Found Advance Directive Response Recorded Date/ Time Advance Directives No September 16 3 3:42pm Advance Directive Response Recorded Date/ Time Advance Directives No September 16 3 2:42pm Chief Complaint and Reason for Visit Chief Complaint Recinos's Esophagus Chief Complaint 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 Chief Complaint K74.60 Chief Complaint 2 Month Follow Up K74.60 R11.0 R68.81 Dyspepsia, Gerd, Early Satiety Rectal Pain, Anal Fissure Chief Complaint 2 Month Follow Up K74.60 R11.0 R68.81 Dyspepsia, Gerd, Early Satiety Rectal Pain, Anal Fissure Rectal Pain, Anal Fissure 8 WEEK FOLLOW UP Reason for Visit Cirrhosis Dyspepsia and disorder of function of stomach Emesis Esophageal dysmotility Additional Source Comments (unrecognized sect ion and content) No Status Records FoundNo Status Records FoundNo Status Records FoundNo Status Records FoundNo Status Records Found INFORMATION SOURCE (unrecogn ized section and content) DATE CREATED AUTHOR 10/10/2017 [facility] DATE CREATED AUTHOR AUTHOR'S ORGANIZ ATION 07/14/2023 [facility] DATE CREATED AUTHOR AUTHOR'S ORGANIZ ATION 07/25/2023 [facility] DATE CREATED AUTHOR AUTHOR'S ORGANIZ ATION 09/02/2023 [facility] DATE CREATED AUTHOR AUTHOR'S ORGANIZ ATION 09/07/2023 [facility] Care Teams (unrecognized sec tion and content) Team Status: Active Member Role Status Dates Rusty Delgado II MD Primary Care Provider Active Team Status: Inactive Member Role Status Dates Lex Carroll MD Attending Provider Active Rusty Delgado II MD Primary Care Provider Active Team Status: Inactive Member Role Status Dates Rusty Delgado II MD Primary Care Provider Active Lex Carroll MD Attending Provider Active Team Status: Inactive Member Role Status Dates Rusty Delgado II MD Primary Care Provider Active Lorna Ortega APRN Attending Provider Active [employer] Relationship Specialty Start Date End Date Rusty eDlgado MD [address] [facility] [address] [place] [address] PCP - [employer] 04/17/22 Rusty Delgado MD [address] [facility] [address] [place] [address] PCP - General Internal Medicine 11/23/22 [employer] Relationship Specialty Start Date End Date Rusty Delgado MD [address] [facility] [address] [place] [address] PCP - [employer] 04/17/22 Rusty Delgado MD [address] [facility] [address] [place] [address] PCP - General Internal Medicine 11/23/22 Team Status: Inactive Member Role Status Dates Lorna Ortega APRN Attending Provider Active Start: April 12, 2023 End: April 12, 2023 Team Status: Inactive Member Role Status Rosa Delgado II MD Primary Care Provider Active Start: April 12, 2023 End: April 12, 2023 Lorna Ortega APRN Attending Provider Active Start: April 12, 2023 End: April 12, 2023 Team Status: Inactive Member Role Status Rosa Delgado II MD Primary Care Provider Active Start: April 26, 2023 End: April 26, 2023 Lorna Ortega APRN Attending Provider Active Start: April 26, 2023 End: April 26, 2023 Team Status: Inactive Member Role Status Rosa Delgado II MD Primary Care Provider Active Start: May 23, 2023 End: May 23, 2023 Minh Griffith MD Attending Provider Active Start: May 23, 2023 End: May 23, 2023 Team Status: Inactive Member Role Status Rosa Delgado II MD Primary Care Provider Active Start: June 02, 2023 End: June 02, 2023 Janneth Villegas DO Attending Provider Active Start: June 02, 2023 End: June 02, 2023 Team Status: Inactive Member Role Status Rosa Delgado II MD Primary Care Provider Active Start: June 13, 2023 End: June 13, 2023 Janneth Villegas DO Attending Provider Active Start: June 13, 2023 End: June 13, 2023 Team Status: Inactive Member Role Status Rosa Delgado II MD Primary Care Provider Active Start: July 05, 2023 End: July 05, 2023 Lorna Ortega APRN Attending Provider Active Start: July 05, 2023 End: July 05, 2023 REASON FOR VISIT (unrecogniz ed section and content) Reason Comments painful hemorrhoid Specialty Diagnoses / Procedures Referred By [facility] t Referred To Contact General Surgery Diagnoses Unspecified hemorrhoids Procedures [place] OFFICE/OUTPATIENT [facility] 60 MINUTES Lorna Ortega MD [address] [facility] [address] [place] [address] [place] [address] [facility] [address] [place] [address] Referral ID Status Reason Start Date Expiration Date V isits Requested Visits Authorized [id number] Closed Specialty Services Required 05/12/2023 11/08/2023 1 1 Reason Comments pain increasingly worse and wants to dis cuss surgery Anal fissure Goals (unrecognized section and content) Goals may be documented in a n alternate section FOR RECORDS PERTAINING TO PATIENTS WHO ARE OR HAVE BEEN ENROLLED IN A CHEMICAL DEPENDENCY/SUBSTANCEABUSE PROGRAM, SOME INFORMATION MAY BE OMITTED. This clinical summary was aggregated from multiple sources. Caution should be exercised in using it in the provision of clinical care. This summary normalizes information from multiple sources, and as a consequence, information in this document may materially change the coding, format and clinical context of patient data. In addition, data may be omitted in some cases. CLINICAL DECISIONS SHOULD BE BASED ON THE PRIMARY CLINICAL RECORDS. [facility]. provides no warranty or guarantee of the accuracy or completeness of information in this document.
== END 2023-09-12 07:37 | disposition home or self-care (01) ==
LOC: MRI 07:36
PROVIDERS: PCP Internal Medicine; Visit Provider Psychiatry & Neurology Neurology
DX: R40.4 Transient alteration of awareness (principal); R41.0 Disorientation, unspecified
CPT/HCPCS: 70551

== ENCOUNTER 2023-10-03 10:42 | Day surgery (SDC) | payer MEDICARE, SELFPAY ==
[2023-10-03] VITALS (7 sets, daily range): BP systolic 99–104; BP diastolic 67–73; PULSE 82; O2SAT 96
--- NOTE | 2023-10-03 10:45 | US_ITS ---
[address] [address] Patient Name: LOYD BLANDON MRN: [id number] date: 1955 Sex: M Assigned Patient Location: US Current Patient Location: US Accession/Order Number: [id number] Exam Date: 10/03/2023 10:50 Report Date: 10/03/2023 13:11 At the request of: JASON JESUS Procedure: US paracentesis abd w/image EXAMINATION: US paracentesis abd w/image HISTORY: Ascites COMPARISON: CTA pelvis 09/25/2023 DESCRIPTION: Informed consent was obtained. The patient was prepped and draped in standard sterile fashion. Ultrasound-guided paracentesis was performed in the usual sterile manner using 1% Xylocaine. FINDINGS: SITE: Right lower quadrant NEEDLE: Paracentesis 8 Fr. Catheter over 18 gauge needle MEDICATION: 1% buffered Xylocaine for local anesthesia FLUID DESCRIPTION: Minimally opaque, yellowish fluid. FLUID VOLUME: 3.6 L COMPLICATIONS: None LABORATORY: Pending OTHER: Negative. US/US paracentesis abd w/image IMPRESSION: 1. Successful paracentesis with removal of 3.6 L of fluid. 2. Laboratory results are pending. Electronically authenticated by: WARD FERRER Date: 10/03/2023 13:11
[2023-10-03] MEDS: LIDOCAINE HCL 10 ML, SODIUM BICARBONATE 1 MEQ INJ (11:50)
--- NOTE | 2023-10-03 15:32 | SUR.PREOP ---
09/29/23 Pt made aware of procedure, date, time, and prep.
--- NOTE | 2023-10-03 15:44 | PC.NURSE ---
1215 Ascites fluid clear yellow. Pt tolerated paracentesis well without problems. Total of 3.6 liters removed.
[2023-10-04 13:12] LABS: Clarity, Serous Slightly hazy (Clear); Color, Serous Straw (.); Eosinophils, Serous 0 % (Not Estab.); Lining Cells, Serous 7 % (Not Estab.); Lymphocytes, Serous 9 % (Not Estab.); Macrophages, Serous 71 % (Not Estab.); Neut, Serous 13 % (0-24); Nucleated Cells, Serous 366 /mm3 (0-499); RBC, Serous 0 /uL (Not Estab.)
[2023-10-04 15:09] LABS: IgG, Subclass 1 855 mg/dL (248-810); IgG, Subclass 2 365 mg/dL (130-555); IgG, Subclass 3 68 mg/dL (15-102); IgG, Subclass 4 52 mg/dL (2-96); Immunoglobulin G, Qn, Serum 1577 mg/dL (603-1613)
[2023-10-05 07:10] LABS: Protein, Body Fluid 1.1 g/dL (.)
== END 2023-10-03 12:30 | disposition home or self-care (01) ==
PROVIDERS: Radiology Diagnostic Radiology; PCP Internal Medicine; Visit Provider Internal Medicine
DX: R18.8 Other ascites (principal)
CPT/HCPCS: 36415; 49083; 82042; 82784; 82787; 84157; 87070; 88112; 89050; 89051

== ENCOUNTER 2023-10-23 12:59 | Day surgery (SDC) | payer MEDICARE, SELFPAY ==
[2023-10-23] VITALS (7 sets, daily range): BP systolic 101–124; BP diastolic 70–90; PULSE 75; O2SAT 96
--- NOTE | 2023-10-23 13:03 | US_ITS ---
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 DESCRIPTION: Informed consent was obtained. The patient was prepped and draped in standard sterile fashion. Ultrasound-guided paracentesis was performed in the usual sterile manner using 1% Xylocaine. FINDINGS: SITE: Right lateral abdomen NEEDLE: Paracentesis 8 Fr. catheter over 18 gauge needle MEDICATION: 25 cc 1% buffered Xylocaine for local anesthesia FLUID DESCRIPTION: medium yellow clear fluid FLUID VOLUME: 2.9 mm COMPLICATIONS: None LABORATORY: Therapeutic only OTHER: The first attempt to gain access into the peritoneal cavity was made in the right anterior lower quadrant, this was not successful due to patient pain and repositioning was made with access along the right lateral abdomen. US/US paracentesis abd w/image IMPRESSION: Technically successful therapeutic paracentesis Electronically authenticated by: AUTUMN FARNSWORTH Date: 10/23/2023 15:03
[2023-10-23] MEDS: LIDOCAINE HCL 10 ML, SODIUM BICARBONATE 1 MEQ INJ (13:50)
--- NOTE | 2023-10-23 14:58 | SUR.PREOP ---
10/16/23 Spoke with pt Fabiana and she states that his Dr ordered another paracentesis for him and would like it scheduled. Instructed her on date, time, prep, and procedure.
--- NOTE | 2023-10-23 15:11 | PC.NURSE ---
[address] with clear yellow fluid removed. Pt tolerating well. Total of 2.9 liters out. 1418 Paracentesis catheter removed without problems.
== END 2023-10-23 14:35 | disposition home or self-care (01) ==
LOC: US 12:59
PROVIDERS: Radiology Diagnostic Radiology; PCP Internal Medicine
DX: K70.31 Alcoholic cirrhosis of liver with ascites (principal)
CPT/HCPCS: 49083

== ENCOUNTER 2023-10-23 13:50 | Outpatient (OUT) | payer MEDICARE, SELFPAY ==
[2023-10-23 14:59] LABS: Basophils Percent Auto 0.8 % (0.2-2.0); Eosinophils Absolute Auto 0.1 10^3/uL (0.0-0.7); Eosinophils Percent Auto 2.6 % (0.9-7.0); Hematocrit 37.5 % (42.0-54.0); Hemoglobin 12.8 g/dL (14.0-18.0); Immature Granulocytes Abs Auto 0.03 10^3/uL (0.00-0.03); Immature Granulocytes Pct Auto 0.6 % (0.0-0.5); Lymphocytes Absolute Auto 0.8 10^3/uL (1.2-3.8); Lymphocytes Percent Auto 15.2 % (20.5-60.0); Mean Corpuscular HGB Conc 34.1 g/dL (29.9-35.2); Mean Corpuscular Volume 99.7 fL (80.0-94.0); Mean Platelet Volume 9.8 fL (9.5-13.5); Monocytes Absolute Auto 0.7 10^3/uL (0.3-0.8); Neutrophils Absolute Auto 3.4 10^3/uL (1.4-6.5); Neutrophils Percent Auto 66.8 % (43.0-75.0); Platelet Count 173 10^3/uL (150-450); Red Blood Count 3.76 10^6/uL (4.70-6.10); Red Cell Distribution Width 14.6 % (11.0-15.0); White Blood Count 5.1 10^3/uL (4.0-11.0)
[2023-10-23 15:06] LABS: Anion Gap 14.7; BUN Creatinine Ratio 13.6; Calcium 9.2 mg/dL (8.5-10.1); Carbon Dioxide 24.7 mmol/L (21.0-32.0); Chloride 100 mmol/L (98-107); Estimated GFR (African America >60 (>=60); Estimated GFR (Non-African Ame 50 (>=60); Glucose 130 mg/dL (74-106); Potassium 4.4 mmol/L (3.5-5.1); Sodium 135 mmol/L (136-145)
[2023-10-23 15:13] LABS: INR 1.17; Prothrombin Time 12.2 sec (9.0-11.6)
== END 2023-10-23 13:51 | disposition home or self-care (01) ==
LOC: LAB 13:55
PROVIDERS: PCP Internal Medicine
DX: K74.60 Unspecified cirrhosis of liver (principal); R18.8 Other ascites
CPT/HCPCS: 36415; 80048; 85025; 85610

== ENCOUNTER 2023-11-02 14:06 | Outpatient (OUT) | payer MEDICARE, SELFPAY ==
[2023-11-02 15:14] LABS: Anion Gap 11.3; BUN Creatinine Ratio 12.5; Calcium 8.9 mg/dL (8.5-10.1); Carbon Dioxide 25.4 mmol/L (21.0-32.0); Chloride 99 mmol/L (98-107); Estimated GFR (African America >60 (>=60); Estimated GFR (Non-African Ame 52 (>=60); Glucose 164 mg/dL (74-106); Potassium 4.7 mmol/L (3.5-5.1); Sodium 131 mmol/L (136-145)
== END 2023-11-02 14:07 | disposition home or self-care (01) ==
LOC: LAB 14:09
PROVIDERS: PCP Internal Medicine
DX: N17.9 Acute kidney failure, unspecified (principal)
CPT/HCPCS: 36415; 80048

== ENCOUNTER → 2023-12-07 11:57 | Day surgery (SDC) | payer MEDICARE, SELFPAY ==
--- NOTE | 2023-12-07 | US_ITS ---
The [address] [address] Patient Name: LOYD BLANDON MRN: [id number] date: 1955 Sex: M Assigned Patient Location: ED.MAIN Current Patient Location: ED.MAIN Accession/Order Number: [id number] Exam Date: 12/07/2023 12:20 Report Date: 12/07/2023 15:11 At the request of: NON-STAFF PHYSICIAN Procedure: US paracentesis abd w/image EXAMINATION: US paracentesis abd w/image HISTORY: Alcoholic cirrhosis of liver with ascites COMPARISON: No relevant comparison available. DESCRIPTION: Informed consent was obtained. The patient was prepped and draped in standard sterile fashion. Ultrasound-guided paracentesis was performed in the usual sterile manner using 1% Xylocaine. FINDINGS: Ultrasound evaluation demonstrates a large amount of ascites within the abdomen and pelvis. Prior to beginning the procedure, the procedure was canceled due to patient's instability (bradycardia and hypotensive and shortness of breath). Patient was transported to the emergency department for evaluation. US/US paracentesis abd w/image IMPRESSION: 1. Marked abdominal ascites. 2. Procedure was terminated prior to beginning the procedure due to patient instability (see above). Electronically authenticated by: WARD FERRER Date: 12/07/2023 15:11
--- OUTSIDE RECORDS SUMMARY | 2023-12-07 12:04 | XMS_ITS | CCD ---
Author Organization [facility] Care Team Providers Care Paver Name Role Phone CHEMA, TANISHA Unavailable Unavailable TEODORA, ROYCE Unavailable Unavailable CHEMA, TANISHA Unavailable Unavailable COY BLANCHARD Unavailable Unavailable CHEMA, TANISHA Unavailable Unavailable CHMEA, TANISHA Unavailable Unavailable CHEMA, TANISHA Unavailable Unavailable MD Lex Carroll Attending Provider JUDITH Delgado Primary Care Provider Lorna Ortega Unavailable TALA Ortega Attending Provider JUDITH Delgado Primary Care Provider TALA Ortega Attending Provider Rusty Delgado MD Unavailable Rusty Delgado MD Primary Care Provider MD Minh Griffith Attending Provider DO Janneth Villegas Attending Provider JUDITH Delgado Primary Care Provider TALA Ortega Attending Provider MD Minh Griffith Attending Provider DO Janneth Villegas Attending Provider RUSTY DELGADO Primary Care Physician [phone] Janneth Villegas H Referring Unavailable Jourdan ARRIAZA Attending Unavailable JUDITH Delgado Primary Care Provider MD Ward Stern Attending Provider Janneth Villegas Admitting Unavailable Aylin Villegasic Attending Unavailable Lamont Delgadoel Primary Care Unavailable Lex Carroll Admitting Unavailable Lex Carroll Attending Unavailable Rusty Delgado Primary Care Unavailable Ward Stern Admitting Unavailable Ward Stern Attending Unavailable Rusty Delgado Primary Care Unavailable Lex Carroll Admitting Unavailable Lex Carroll Attending Unavailable Rusty Delgado Primary Care Unavailable Rusty Delgado Primary Care Unavailable Scovanner Lorna M Admitting Unavailable ScovannerLorna M Attending Unavailable Rusty Delgado Primary Care Unavailable Scovanner Lorna M Admitting Unavailable ScovannerLorna Attending Unavailable Rusty Delgado Primary Care Unavailable Scovanner Lorna M Admitting Unavailable ScovannerLorna M Attending Unavailable Itzkojonathan, Janneth Attending Unavailable Itzphilomena, Janneth Admitting Unavailable Rusty Delgado Primary Care Unavailable Minh Griffith Admitting UnavailMinh Romero Attending Unavailabl e Rusty Delgado [facility] Care Unavailable ITDAPHNE, JANNETH H Attending Unavailable SCLORNA KOTHARI Referring Unavailable ITZKOBERNICETZ, JANNETH H Attending Unavailable ITZPHILOMENA, JANNETH H Attending Unavailable ITDAPHNE, JANNETH H Attending Unavailable FABY ECHEVARRIA Attending Unavailable ISAIAS, WARD Attending Unavailable FABY ECHEVARRIA Referring Unavailable BENESYEDACTWARD Referring Unavailable WARD ESPARZA Referring Unavailable LYNDSEY PATEL Attending Unavailable WARD ESPARZA Referring Unavailable ROSALINO LAMAS Attending Unavailable RUSTY DELGADO Attending Unavailable RUSTY DELGADO Attending Unavailable RUSTY DELGADO Referring Unavailable RUSTY DELGADO Attending Unavailable ARIAS JESUS Referring Unavailable RESEARCH, LANRE Referring Unavailable IRENA JOHNSON Referring Unavailable IRENA JOHNSON Attending Unavailable IRENA JOHNSON Admitting Unavailable ARIAS JESUS Admitting Unavailable ARIAS JESUS Referring Unavailable ARIAS JESUS Attending Unavailable ARIAS JESUS Attending Unavailable IRENA JOHNSON Attending Unavailable ARIAS JESUS Referring Unavailable Allergies Allergy Classification Reported Allergen(s) Allergy Type Date of Onset Reaction(s) Facility (1 source) sulfamethoxazole / trimethoprim; Translations: [SULFAMETHOXAZOLE-TR IMETHOPRIM] Drug Allergy 5 [facility] Repository Medications Current Medications Medication Drug Class(es) Dates Sig (Normalized) Sig (Original) atropine sulfate 0.025 mg / diphenoxylate hydrochloride 2.5 mg oral tablet (15 sources) Anticholinergic, Cholinergic Muscarinic Antagonist, Antidiarrheal Start: [...] Syed Start: 02-09-2023 take 1 tablet by vlad th every six hours Diphenoxylate-Atropine 2.5-0.025 MG 1 tablet as needed Orally Four times a day for 30 days Jan, Active take 1 tablet by vlad th three times daily as needed for diarrhea diphenoxylate-atropine (Lomotil) 2.5-0.025 MG tablet Take 1 tablet by mouth 3 (three) times a day as needed for diarrhea 0 Active baclofen 20 mg oral tablet (2 sources) gamma-Aminobutyric Acid-ergic Agonist Start: 07-05-2023 take 20 mg by mouth once daily at bedtime Baclofen Active 20 MG PO Daily at bedtime July 05, 2023 12:00am calcium carbonate 1250 mg / cholecalciferol 125 unt oral tablet (3 sources) Vitamin D Start: 06-02-2023 take 1 [...] esomeprazole 40 mg delayed release oral capsule (15 sources) Proton Pump Inhibitor Start: 06-02-2023 Esomeprazole [...] Sep, Active famotidine 40 mg oral tablet (18 sources) Histamine-2 Receptor Antagonist Start: 06-02-2023 End: [...] 05/18/2023 Discontinued furosemide 40 mg oral tablet (12 sources) Loop Diuretic Start: 06-02-2023 take 1 [...] 05/10/2023 Active ibuprofen 800 mg oral tablet (3 sources) Nonsteroidal Anti-inflammatory Drug Start: 06-02-2023 take 800 mg by mouth three times daily Ibuprofen Active 800 MG PO Three times daily June 02, 2023 1:00am lansoprazole 30 mg delayed release oral capsule (2 sources) Proton Pump Inhibitor Start: 07-05-2023 take 30 mg by mouth twice daily Lansoprazole Active 30 MG PO Twice daily 60 July 05, 2023 12:00am lisinopril 20 mg oral tablet (19 sources) Angiotensin Converting Enzyme Inhibitor Start: 09-19-2022 take 20 mg by mouth once daily in the morning Lisinopril Active 20 MG PO Every morning September 19, 2022 12:00am Multiple Vitamins-Minerals (Multi For Him) tablet (3 sources) Multiple Vitamins-Minerals (Multi For Him) tablet Daily. 0 Active Multivitamin (Daily Multi-Vitamin) tablet (3 sources) Start: 06-02-2023 take 1 tablet by mouth once daily Multivitamin (Daily Multi-Vitamin) tablet Active 1 TAB PO Daily June 02, 2023 1:00am Start: 06-02-2023 take 1 tablet by vlad th once daily Multivitamin (Daily Multi-Vitamin) tablet Active 1 TAB PO Daily June 02, 2023 12:00am ondansetron 4 mg oral tablet (4 sources) Serotonin-3 Receptor Antagonist Start: 07-05-2023 take 4 mg by mouth three times daily Ondansetron Hcl Active 4 MG PO Three times daily July 05, 2023 9:32am Start: 07-05-2023 End: 07-05-2023 take 4 mg by mouth once daily Ondansetron Hcl Disconti nued 4 MG PO Daily July 05, 2023 12:00am July 05, 2023 9:32am spironolactone 100 mg oral tablet (12 sources) Aldosterone Antagonist Start: 06-02-2023 take 1 [...] / oxyCODONE hydrochloride 5 mg oral tablet (2 sources) Opioid Agonist Start: 06-13-2023 End: 07-05-2023 take 1 tablet by mouth every six hours Oxycodone-Acetami nophen (Percocet) 5-325 mg tablet Discontinued 1 TAB PO Q6H 28 7 June 13, 2023 July 05, 2023 9:01am [id number] 333-133-5 MG per tablet (1 source) End: 05-18-2023 calcium-magnesium -zinc 333-133-5 MG per tablet Take 1 tablet by mouth in the morning and 1 tablet at noon and 1 tablet in the evening. Take with meals. 0 05/18/2023 Discontinued hydroCHLOROthiazide 25 mg / triamterene 37.5 mg oral capsule (10 sources) Potassium-spari ng Diuretic, Thiazide Diuretic Start: 06-13-2023 End: 07-05-2023 Triamterene-Lutts chlorothiazid Discontinued CAP June 13, 2023 1:00am [...] Discontinued metoprolol tartrate 25 mg oral tablet (10 sources) beta-Adrenergic Nikunj Start: 09-19-2022 End: 06-02-2023 take 25 mg by mouth twice daily Metoprolol Tartrate Discontinued 25 MG PO Twice daily September 19, 2022 12:00am June 02, 2023 11:11am Metoprolol Tartr ate Active omeprazole 40 mg delayed release oral capsule (14 sources) Proton Pump Inhibitor Start: 09-21-2022 End: [...] Date Documented Da te Episodic/Chronic Abdominal pain (6 sources) Lower abdominal pain, unspecified; Translations: [Epigastric pain] Onset: 4 Episodic Alcohol-related disorders (2 sources) Alcoholic cirrhosis of liver with ascites; Translations: [Alcoholic cirrhosis of liver with ascites] Onset: 4 Chronic Anal and rectal conditions (6 sources) Anal fissure; Translations: [Anal fissure, unspecified] Onset: 4 05-18-2023 Episodic Cataract (12 sources) Nuclear senile cataract; Translations: [Age-related nuclear cataract, bilateral] Onset: 3 11-17-2022 Chronic Coagulation and hemorrhagic disorders (12 sources) Thrombocytopenic disorder; Translations: [Thrombocytopenia, unspecified] Onset: 3 11-17-2022 Chronic Diabetes mellitus without complication (12 sources) Type [...] Onset: 3 Resolved: 3 11-17-2022 Chronic Hemorrhoids (2 sources) Internal hemorrhoids grade II; Translations: [Second degree hemorrhoids] 06-13-2023 Episodic Osteoporosis (3 sources) Osteoporosis; Translations: [Age-related osteoporosis without current pathological fracture] Onset: 3 03-21-2023 Chronic Other and unspecified benign neoplasm (12 sources) History of polyp of colon; Translations: [Personal history of colonic polyps] Onset: 3 03-21-2023 Episodic Other connective tissue disease (3 sources) Muscle pain; Translations: [Myalgia, unspecified site] Onset: 3 03-16-2023 Episodic Other disorders of stomach and duodenum (2 sources) Disorder of function of stomach; Translations: [Disease [...] stool; Translations: [Other fecal abnormalities] Episodic Other liver diseases (12 sources) Steatosis of liver; Translations: [Fatty (change of) liver, not elsewhere classified] Onset: 3 11-17-2022 Chronic Other liver diseases (2 sources) Fatty (change of) liver, not elsewhere classified; Translations: [Fatty (change of) liver, not elsewhere classified] Onset: 3 Chronic Other liver diseases (9 sources) Cirrhosis of liver; Translations: [Unspecified cirrhosis of liver] 07-05-2023 Chronic Other liver diseases (6 sources) Unspecified cirrhosis of liver; Translations: [Cirrhosis of liver without mention of alcohol] Onset: 3 Chronic Other liver diseases (2 sources) Liver disease, unspecified; Translations: [Liver disease, unspecified] Onset: 4 Chronic Other nutritional; endocrine; and metabolic disorders (12 sources) Metabolic syndrome X; Translations: [Metabolic syndrome] Onset: 3 11-17-2022 Chronic Residual codes; unclassified (6 sources) Edema; Translations: [Localized edema] Episodic Residual codes; unclassified (6 sources) Early satiety; Translations: [Early satiety] Episodic Residual codes; unclassified (1 source) Localized edema Episodic Retinal detachments; defects; vascular occlusion; and retinopathy (12 sources) Epiretinal membrane; 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, bilateral] Onset: 3 11-17-2022 Chronic Unclassified (1 source) Unknown / UNK(Unknown) Onset: 7 Unclassified (1 source) Second degree hemorrhoids; Translations: [Second degree hemorrhoids] Onset: 4 Unclassified (1 source) Encounter for preprocedural laboratory examination; Translations: [Encounter for preprocedural laboratory examination] Onset: 4 Past or Other Problems Problem Classification Problem Date Documented Da te Episodic/Chronic Abdominal hernia (3 sources) Incisional hernia; Translations: [Incisional hernia without obstruction or gangrene] Onset: 12-06-2012 03-21-2023 Episodic Deficiency and other anemia (2 sources) Anemia, unspecified; Translations: [Anemia, unspecified] Onset: 08-07-2023 Episodic Nausea and vomiting (12 sources) Nausea; Translations: [Nausea] Onset: 04-26-2023 Episodic Other connective tissue disease (1 source) Pain in left toe(s); Translations: [Pain in left toe(s)] Onset: 01-04-2017 Episodic Other gastrointestinal disorders (3 sources) Abdominal distension (gaseous); Translations: [Abdominal distension (gaseous)] Onset: 08-22-2023 Episodic Other screening for suspected conditions (not mental disorders or infectious disease) (1 source) Other specified abnormal findings of blood chemistry; Translations: [Other specified abnormal findings of blood chemistry] Onset: 11-03-2022 Episodic Residual codes; unclassified (12 sources) Insomnia; Translations: [Insomnia, unspecified] Onset: 11-17-2022 11-17-2022 Episodic Residual codes; unclassified (3 sources) Early satiety; Translations: [Early satiety] Onset: 04-26-2023 Episodic Results Test Name Value Interpretation Reference Range Facility 36on 12-01-[address] Hazel in clinic, order placed and faxed to [facility] at [phone] [facility] 36 calls stating t hat patient is in need of an order for paracentesis. Order will need to be sent to [facility]. [facility] Orders Onlyon 12-01-2023 Orders Only [id number] Ambrosio Blandon 1955 M Date Provider Department Center 12/01/[id number] HAZEL [facility] No family history on file [facility] HPon 11-27-2023 HP ----- ----- Attestation signed by Irena Johnson MD at 11/27/2023 10:41 AM I personally saw and examined the patient on the same date of service as fellow. I discussed the findings and therapeutic plan with the fellow. I agree with the documentation, except for any edits/updates below. ----- Gastroenterology History and Physical Note IDENTIFYING DATA PATIENT: Charles Blandon HISTORY OF PRESENT ILLNESS Charles Blandon is a 68 y.o. male who has a known past medical history significant for alcoholic liver cirrhosis, Recinos's esophagus and hepatic encephalopathy is scheduled today for an EGD for esophageal varices screening. Patient was seen in the clinic on 10/13/2019 for. At that time he endorsed weight loss as his weight went down from 220 pounds to 193. He also endorsed using Advil intermittently with some hematochezia and recent rectal hemorrhoidal banding for internal and external hemorrhoids. As a part of cirrhosis workup, EGD was ordered for the patient for esophageal varices screening. PAST MEDICAL, SURGICAL, FAMILY, and SOCIAL HISTORY Past Medical History: Past Medical History: Diagnosis Date Abnormal weight loss Alcohol use disorder Ascites Barretts esophagus Basal cell carcinoma of skin Cirrhosis (CMS/HCC) Diabetes mellitus (CMS/HCC) Esophageal dysmotility Family history of colonic polyps Fatty liver GERD (gastroesophageal reflux disease) Hypertension Metabolic syndrome Osteoporosis Thrombocytopenia (CMS/HCC) Ventricular premature beats Past Surgical History: Past Surgical History: Procedure Laterality Date CHOLECYSTECTOMY ELBOW SURGERY Right TORN MUSCLE Family History: No family history on file. Social History: Social History Tobacco Use Smoking status: Former Types: Cigarettes Quit date: 1994 Years since quittin.6 Smokeless tobacco: Never Vaping Use Vaping Use: Never used Substance Use Topics Alcohol use: Not Currently Drug use: Never Allergies: No Known Allergies Home Medications: Prior to Admission medications Medication Sig Start Date End Date Taking? Authorizing Provider baclofen (Lioresal) 20 mg tablet Take 1 tablet (20 mg) by mouth three times daily. Patient taking differently: Take 20 mg by mouth at bedtime. 11/08/23 11/07/24 Yes Arias Jesus MD calcium carbonate-vitamin D3 500 mg-3.125 mcg (125 unit) tablet tablet 1 tablet. 06/02/23 Yes Historical Provider, famotidine (Pepcid) 40 mg tablet Take 1 tablet (40 mg) by mouth in the morning. Patient taking differently: Take 40 mg by mouth two times daily. 11/08/23 11/07/24 Yes Arias Jesus MD furosemide (Lasix) 40 mg tablet Take 40 mg by mouth in the morning. 06/02/23 Yes Historical Provider, lansoprazole (Prevacid) [address] capsule TAKE 1 CAPSULE BEFORE A MEAL TWICE DAILY FOR 30 DAYS Patient taking differently: Take 30 mg by mouth before breakfast. TAKE 1 CAPSULE BEFORE A MEAL TWICE DAILY FOR 30 DAYS 11/21/23 Yes Arias Jesus MD magnesium oxide (Mag-Ox) 400 mg tablet Take 500 mg by mouth in the morning. Yes Historical Provider, multivitamin tablet Take 1 tablet by mouth in the morning. Yes Historical Provider, rifAXIMin (Xifaxan) 550 mg tablet Take 1 tablet (550 mg) by mouth in the morning and at bedtime. 10/13/23 12/12/23 Yes Gibson Hazel MD spironolactone (Aldactone) 100 mg tablet Take 100 mg by mouth in the morning. 06/02/23 Yes Historical Provider, lansoprazole (Prevacid) [address] capsule TAKE 1 CAPSULE BEFORE A MEAL TWICE DAILY FOR 30 DAYS 11/20/23 11/21/23 Gibson Hazel MD REVIEW OF SYSTEMS See HPI, otherwise ROS negative as below Review of Systems OBJECTIVE DATA Vitals: BP 136/78 Pulse 93 Temp 36.2 ???C (97.2 ???F) (Temporal) Resp 16 Ht 1.753 m (5' 9 ) Wt 89.4 kg (197 lb 1.5 oz) SpO2 98% BMI 29.11 kg/m??? Physical Exam LABS CBC: No results found for: WBC , RBC , HGB , HCT , MCV , RDW , PLT PT/INR No results found for: PT , INR BMP: No results found for: NA , K , CL , BUN , CREATININE , EGFR , GLU LFTs: No results found for: BILITOT , BILIDIR , ALKPHOS , GGT , AST , ALT , ALBUMIN , PROT B12/Folate/Iron studies: No results found for: UEIPQLLM00 , FOLATE , IRON , TIBC , UIBC , IRONSAT , FERRITIN ASSESSMENT AND PLAN Charles Blandon is a 68 y.o. male who has a known past medical history significant for alcoholic liver cirrhosis, Recinos's esophagus and hepatic encephalopathy is scheduled today for an EGD for esophageal varices screening. Plan: Plan for EGD today for esophageal varices secondary to liver cirrhosis. [facility] POCT GLUCOSE METER UNSOLICIT ED RESULTSon 11-27-2023 Glucose [Mass/Vol] 101 mg/dL Normal 70-105 [facility] Comment on above: Order Comment: Waive d Testing in the ED is performed under the ED CLIA certificate #[id number]. Result Comment: [facility] eman Performed By: #### L [id number] #### [facility] [address] [place] [address] 36on 11-21-2023 36 Appeal submitted [facility] Orders Onlyon 11-21-2023 Orders Only [id number] Ambrosio Blandon 1955 M Date Provider Department Center 11/21/2023 BROOKLYNN ZEPEDA MP [facility] No family history on file [facility] Prep for Procedureon 024 Prep for Procedure [id number] Ambrosio Blandon 1955 M Date Provider Department Center 11/21/2023 IRENA SCHMIDT [facility] GISC GEORGEI No family history on file [facility] MR ABDOMEN W AND WO CONTRAST on 07-30-2024 MR ABDOMEN W AND WO CONTRAST History: Cirrhosis with indeterminate liver lesion demonstrated on recent CT Comparison: CT and ultrasound abdomen 09/25/2023 EXAM & TECHNIQUE: Multiplanar, multisequence MR images are obtained of the abdomen with intravenous contrast. FINDINGS: There is a large right pleural effusion and large volume intra-abdominal ascites. Combination of these findings is associated with difficulty for the patient holding their breath and intra-abdominal artifact from abdominal fluid shift. Many of the sequences are nondiagnostic. Cirrhotic liver morphology redemonstrated with surface nodularity, left lobe hypertrophy and recannulization of umbilical vein. Stranding of the anterior mesentery and omentum making it difficult to differentiate edema from other infiltrating process. Arterial enhancing observation within the right lobe liver described on the CT is not reproduced on this examination however both arterial timing and visualization of the liver are significantly compromised. Prior cholecystectomy. Pancreas and spleen show no gross abnormality. Thickening of the right diaphragmatic cinthia noted. Kidneys and adrenal glands appear grossly normal. IMPRESSION: *Patient's condition is severely compromised which has markedly affected imaging. Arterial enhancing focus described on the CT is not visualized or characterized on this study. Either consider repeat examination when patient's large pleural effusion and ascites have been resolved/addressed or follow-up surveillance contrast CT recommended. Electronically signed: Adalid Montiel. 9 Invalid Interpretation Code [facility] Orders Only11-08-2023 Orders Only [id number] Ambrosio Blandon 1955 M Date Provider Department [place] 11/08/2023 [id number], BETH [facility] No family history on file [facility] 11-02-2023 36 Patient's carmen jolynn to verify that Dr. Jesus will now be prescribing the Famotidine and Baclofen because the previously prescribing physician no longer will now that he is a [facility] GI patient. The preferred pharmacy is [facility] in [place]. Please advise and these orders can then be pended. [facility] Orders Onlyon 11-02-2023 Orders Only [id number] Ambrosio Blandon 1955 M Date Provider Department Center 11/02/2023 [id number], [facility] No family history on file [facility] 3610-26-2023 36 I called the patient and his to discuss results of his recent lab work which shows mild increase in his creatinine. We discussed repeating his labs in 1 week and if his creatinine is worsened, plan to hold diuretics. She reports that he continues to have confusion despite having approximately 3 bowel movements per day on lactulose. He is starting his rifaximin today but I discussed with his that he should be seen by his primary care doctor to evaluate for other causes of confusion outside of hepatic encephalopathy. She expressed clear understanding. He will be undergoing MRI of his liver on the . [facility] Orders Onlyon 10-26-2023 Orders Only [id number] Ambrosio Blandon emma 1955 M Date Provider Department Center 10/26/202385917-[id number] TAYLOR MP [facility] No family history on file [facility] Telephoneon 10-26-2023 Telephone [id number] Ambrosio Blandon emma 1955 M Date Provider Department Center 10/26/[id number]-NKHMRGIBSON ESPOSITO [facility] No family history on file [facility] Orders Onlyon 10-24-2023 Orders Only [id number] Ambrosio Blandon emma 1955 M Date Provider Department Center 10/24/2023 [id number], MAGALIS [facility] No family history on file [facility] Orders Onlyon 10-20-2023 Orders Only [id number] Ambrosio Blandon emma 1955 M Date Provider Department Center 10/20/2023 RUFINO [facility] Medical No family history on file [facility] 36on 10-18-2023 36 I called the patient 's to discuss the results of his recent lab work which demonstrates mild hyponatremia. Case was discussed with Dr. Johnson and we will plan for repeat labs in a few days for further evaluation of his hyponatremia. I discussed with his that if his sodium levels are lower, we will likely need to discontinue his diuretics for the time being and possibly refer him to nephrology. His expressed concern regarding his mental status currently. She reports that he has intermittent confusion followed by complete clarity. I discussed with her my concern that this could be related to hepatic encephalopathy and she reports that he will be starting his lactulose once it comes from pharmacy on the fifth. I expressed concern that a metabolic or infectious cause could be the cause of his symptoms as well and that if he continues to have worsening mental status, he should present to the emergency room for further evaluation. I encouraged her to make an appointment with his PCP for evaluation regardless and to go to the ED if things worsen. Additionally, she expressed concern regarding traveling for MRI of the liver as well as EGD for variceal screening. I discussed with her that the MRI is of the highest precedence given concern for possible hepatocellular carcinoma and that this is a screening EGD that is nonurgent. She expressed clear understanding. They will be getting labs done early next week and she was provided with the fax number for our clinic so that we can follow-up on his sodium level. [facility] 36 Patients called stating they were called yesterday afternoon and told the EGD had to be canceled due to patients sodium level being low. They have some confusion because they spoke with you earlier that day and stated they can proceed with the procedure. While I was on the phone with patients pre registation called and wanted to know if patient was on campus. They would like a call back from you to clarify some things. [facility] Orders Onlyon 10-18-2023 Orders Only [id number] Ambrosio Blandon 1955 M Date Provider Department Center 10/18/2023 EKATERINA ALMARAZ [facility] No family history on file [facility] Telephoneon 10-18-2023 Telephone [id number] Ambrosio Blandon 1955 M Date Provider Department Center 10/18/202303795-VLWGSGIBSON TAYLOR MP [facility] No family history on file [facility] Orders Onlyon 10-17-2023 Orders Only [id number] Ambrosio Blandon 1955 M Date Provider Department Center 10/17/202361790-KDBFJGIBSON ESPOSITO MP [facility] No family history on file [facility] Documentationon 10-16-2023 Documentation [id number] Ambrosio Blandon 1955 M Date Provider Department Center 10/16/2023 CARMELLA NICOLE [facility] No family history on file Reason for Visit and Comments: Specialty Pharmacy Note: Xifaxan PAP [Other] Normal [facility] Prep for Procedureon 024 Prep for Procedure [id number] Ambrosio Blandon 1955 M Date Provider Department Center 10/16/2023 Vahid-IRENA JOHNSON [facility] No family history on file Normal [facility] BASIC METABOLIC PANELon 09-16 Anion gap [Moles/Vol] 14 mmol/L Normal 7-20 [facility] Comment on above: Performed By: #### L AB15 #### [facility] (BEAKER) [address] [place] [address] Calcium [Mass/Vol] 9.1 mg/dL Normal 8.6-10.3 [facility] Comment on above: Performed By: #### L AB15 #### [facility] (BEAKER) [address] [place] [address] Chloride [Moles/Vol] 96 mmol/L Low 98-107 [facility] Comment on above: Performed By: #### L AB15 #### [facility] (BEAKER) [address] [place] [address] CO2 [Moles/Vol] 22 mmol/L Normal 21-31 [facility] Comment on above: Performed By: #### L AB15 #### [facility] (BEAKER) [address] [place] [address] Creatinine [Mass/Vol] 1.00 mg/dL Normal 0.70-1.30 [facility] Comment on above: Performed By: #### L AB15 #### [facility] (BEAKER) [address] [place] [address] GLOMERULAR FILTRATION RATE ML/MIN/1.73 SQ M.PREDICTED 81.0 mL/min/1.73m*2 Normal >60.0 [facility] Comment on above: Result Comment: [facility]???s estimated glomerular filtration rate (eGFR) will no longer include consideration of race in its calculation. The National Kidney Foundation???s eGFR Task Force developed new recommendations for the estimation of the glomerular filtration rate in the [place] They recommend immediate implementation of the new equation refit without the race variable in all laboratories because the calculation does not include race. In addition to not including race in the calculation and reporting, it included diversity in its development, and has acceptable performance characteristics and potential consequences that do not disproportionately affect any one group of individuals. Performed By: #### L AB15 #### [facility] ([facility]) [address] [place] [address] Glucose [Mass/Vol] 108 mg/dL High 70-100 [facility] Comment on above: Performed By: #### L AB15 #### [facility] ([facility]) [address] [place] [address] Potassium [Moles/Vol] 4.8 mmol/L Normal 3.5-5.1 [facility] Comment on above: Performed By: #### L AB15 #### [facility] ([facility]) [address] [place] [address] Sodium [Moles/Vol] 127 mmol/L Low 136-145 [facility] Comment on above: Performed By: #### L AB15 #### [facility] ([facility]) [address] [place] [address] Urea nitrogen [Mass/Vol] 13 mg/dL Normal 7-25 [facility] Comment on above: Performed By: #### L AB15 #### [facility] ([facility]) [address] [place] [address] UREA NITROGEN/CREATININE (MASS RATIO) IN SER/PLAS 13.0 Normal [facility] Comment on above: Performed By: #### L AB15 #### [facility] ([facility]) [address] [place] [address] CBCon 10-13-2023 Erythrocyte distribution width (RBC) [Ratio] 14.2 % Normal 11.5-15.0 [facility] Comment on above: Performed By: #### L [id number] #### [facility] [address] [place] [address] ERYTHROCYTE MEAN CORPUSCULAR HEMOGLOBIN CONCENTRATION (G/DL) BY AUTOMATED 34.5 g/dL Normal 32.0-35.0 [facility] Comment on above: Performed By: #### L [id number] #### [facility] [address] [place] [address] Hematocrit (Bld) [Volume fraction] 38.0 % Low 39.0-55.0 [facility] Comment on above: Performed By: #### L [id number] #### [facility] [address] [place] [address] Hemoglobin (Bld) [Mass/Vol] 13.1 g/dL Normal 13.0-17.0 [facility] Comment on above: Performed By: #### L [id number] #### [facility] (BEAKER) [address] [place] [address] MCH (RBC) [Entitic mass] 34.4 pg High 27.0-33.0 [facility] Comment on above: Performed By: #### L [id number] #### [facility] (BEAKER) [address] [place] [address] MCV (RBC) [Entitic vol] 99.7 fL High 82.0-98.0 [facility] Comment on above: Performed By: #### L [id number] #### [facility] (BEAKER) [address] [place] [address] PLATELETS (10*3/UL) IN BLOOD AUTOMATED COUNT 212 10*3/uL Normal 150-400 [facility] Comment on above: Performed By: #### L [id number] #### [facility] (BEAKER) [address] [place] [address] RBC (Bld) [#/Vol] 3.81 10*6/uL Low 4.20-5.70 [facility] Comment on above: Performed By: #### L [id number] #### [facility] ([facility]) [address] [place] [address] WBC (Bld) [#/Vol] 6.20 10*3/uL Normal 4.00-10.60 [facility] Comment on above: Performed By: #### L [id number] #### [facility] ([facility]) [address] [place] [address] HEPATIC FUNCTION PANELon Albumin [Mass/Vol] 3.4 g/dL Low 3.5-5.7 [facility] Comment on above: Performed By: #### L AB20 #### [facility] ([facility]) [address] [place] [address] ALP [Catalytic activity/Vol] 114 U/L High 34-104 [facility] Comment on above: Performed By: #### L AB20 #### [facility] ([facility]) [address] [place] [place] [address] ALT [Catalytic activity/Vol] 23 U/L Normal 7-52 [facility] Comment on above: Performed By: #### L AB20 #### [facility] ([facility]) [address] [place] [address] AST [Catalytic activity/Vol] 48 U/L High 13-39 [facility] Comment on above: Performed By: #### L AB20 #### [facility] ([facility]) [address] [place] [address] Bilirubin [Mass/Vol] 1.5 mg/dL High 0.3-1.0 [facility] Comment on above: Performed By: #### L [id number] #### [facility] ([facility]) [address] [place] [address] Magnesium [Mass/Vol] 0.5 mg/dL High 0-0.2 [facility] Comment on above: Performed By: #### L [id number] #### [facility] (BEAKER) [address] [facility] [place] [address] Protein [Mass/Vol] 7.8 g/dL Normal 6.0-8.3 [facility] Comment on above: Performed By: #### L AB20 #### [facility] (BEAKER) [address] [place] [address] Labon 10-13-2023 Lab [id number] Ambrosio Blandon 1955 M Date Provider Department Center 10/13/2023 2244-[facility] MP LAB RESOURCE MP DRAW Medical Pavi No family history on file Normal [facility] Office Visiton 10-13-2023 Follow-up visit [id number] Ambrosio Blandon 1955 M Date Provider Department [place] 10/13/2023 298-IRENA JOHNSON MP GI Medical [facility]avi No family history on file Level of Service:00327 [place] OFFICE/OUTPATIENT ESTABLISHED HIGH MDM 40 MIN (GC) Reason for Visit and Comments: Cirrhosis [239] Ascites [295] Normal [facility] PROTIME-INRon 10-13-2023 INR IN PPP BY COAGULATION ASSAY 1.17 High 0.90-1.10 [facility] Comment on above: Result Comment: ACCC P RECOMMENDED INR FOR WARFARIN THERAPY CONDITION INR PROPHYLAXIS OF VENOUS THROMBOSIS 2-3 (HIGH-RISK SURGERY) TREATMENT OF VENOUS THROMBOSIS 2-3 TREATMENT OF PULMONARY EMBOLISM 2-3 PREVENTION OF SYSTEMIC EMBOLISM: 2-3 ACUTE MYOCARDIAL INFARCTION TISSUE HEART VALVES VALVULAR HEART DISEASE ATRIAL FIBRILLATION RECURRENT SYSTEMIC EMBOLISM MECHANICAL HEART VALVE 2.5-3.5 FROM: ORAL ANTICOAGULANTS. MECHANISM OF ACTION, CLINICAL EFFECTIVENESS, AND OPTIMAL THERAPEUTIC RANGE. CHEST 1995;108:231S-246S. Performed By: #### L [id number] #### [facility] (BEAKER) [address] [place] [address] PROTHROMBIN TIME (PT) IN PPP BY COAGULATION ASSAY 14.9 Seconds High 12.3-14.8 [facility] Comment on above: Performed By: #### L [id number] #### [facility] (BEAKER) [address] [place] [address] Orders Onlyon 10-06-2023 Orders Only [id number] Ambrosio Blandon 1955 M Date Provider Department Center 10/06/2023 [id number], HISTORICAL MP GI Medical Pavi No family history on file Normal [facility] Mayito 10-03-2023 L Specimen: [id number] Received: 10/04/23 Status: HUSAM Req Num: [id number] Spec Type: Cytology Subm Dr: Arias Jesus MD Tissues: A ASCITES (ASC) Procedures: HE/2, Gross/Micro L4, Cyto Prepstain, PAPSTN Age/ Patient Sex Location Account Attending Physician Charles Blandon 68/M LABELL [id number] Ward Stern MD SPEC NUM: [id number] RECD: 10/04/23 STATUS: HUSAM REMartin NUM: [id number] WEN: 10/03/[address]: Arias Jesus MD ENTERED: 10/04/[address] [facility] DR: Babs,Lab Ward Stern MD SPEC TYPE: Cytology DEPT: MARLEN VALDEZ ENTERED BY: [id number] RECV BY: [id number] ORDERED: HE/2, Gross/Micro L4, Cyto Prepstain, PAPSTN ORDERED: HE/2, Gross/Micro L4, Cyto Prepstain, PAPSTN Pathological Diagnosis Ascites fluid cytology: Atypical cells noted. Clinical Information cirrhosis, liver lesion Gross Description Received is 1000 ml yellow cloudy unfixed fluid for cytology said to have been obtained as abdominal ascites fluid. ThinPrep and cell block preparations are prepared for microscopic examination. (ME/nh) CPT Codes 56004 Specimen: [id number] Received: 10/04/23-1336 Status: HUSAM Coffey Num: [id number] Spec Type: Cytology Subm Dr: Arias Jesus MD Tissues: A ASCITES (ASC) Procedures: HE/2, Gross/Micro L4, Cyto Prepstain, PAPSTN Patient: Charles Blandon [id number] (Continued) Signed (signature on file) Linette Bean MD 06/20/24 1340 Normal [facility] Orders Onlyon 09-27-2023 Orders Only [id number] Ambrosio Blandon 1955 M Date Provider Department Center 09/27/2023 KatieJEREMYHARSHA PINEDA [facility] GI [facility] No family history on file Normal [facility] CREATININE, SERUMon 09-25-19 24 Creatinine [Mass/Vol] 1.06 mg/dL Normal 0.70-1.30 [facility] Comment on above: Performed By: #### L [id number] ####[facility] (BEAKER)[address] [place] [address] GLOMERULAR FILTRATION RATE ML/MIN/1.73 SQ M.PREDICTED 75.5 mL/min/1.73m*2 Normal >60.0 [facility] Comment on above: Result Comment: [facility]???s estimated glomerular filtration rate (eGFR) will no longer include consideration of race in its calculation. The National Kidney Foundation???s eGFR Task Force developed new recommendations for the estimation of the glomerular filtration rate in the [place] They recommend immediate implementation of the new equation refit without the race variable in all laboratories because the calculation does not include race. In addition to not including race in the calculation and reporting, it included diversity in its development, and has acceptable performance characteristics and potential consequences that do not disproportionately affect any one group of individuals. Performed By: #### L [id number] ####[facility] (BEAKER)[address] [place] [address] CTA ABDOMEN PELVIS W IV CONT [facility] 09-25-2023 CTA ABDOMEN PELVIS W IV CONTRAST CLINICAL INFORMATION: Abdominal pain. Generalized abdominal pain. Mesenteric ischemia. COMPARISON: None. PROCEDURE: CT Angiography of the abdomen and pelvis obtained after the administration of intravenous iodinated contrast. Sagittal and coronal reformatted images with 3-D Maximum intensity projection reconstructions constructed under concurrent physician supervision on a independent workstation. Automated exposure control was utilized. All CT scans at this facility use dose modulation, iterative reconstruction, and/or weight based dosing when appropriate to reduce radiation dose to as low as reasonably achievable. FINDINGS: Vascular findings: Abdominal aorta: Normal in course and caliber. Mild scattered atherosclerotic calcification. No aneurysm or dissection. Celiac: Unremarkable. SMA: Unremarkable. Renal arteries: Unremarkable. FIDELINA: Unremarkable. Iliac arteries: Mild to moderate scattered atherosclerotic calcification, otherwise unremarkable. Partially visualized femoral arteries: Unremarkable. Other findings: Large right and moderate left pleural effusions with adjacent atelectasis. There is hepatic cirrhosis. Arterially enhancing focus near the hepatic dome measuring 2 cm. There is sequelae of portal hypertension including a large volume of intra-abdominal ascites. No biliary dilatation. The pancreas, spleen, and adrenal glands are unremarkable. The kidneys enhance symmetrically. No hydronephrosis or ureteral obstruction. Urinary bladder contour is unremarkable. No intra-abdominal free air. There is no small bowel obstruction. Sigmoid diverticulosis. The colon is otherwise unremarkable by CT. No acute osseous abnormalities. Sclerotic density at the T10 vertebral body involving the right-sided pedicle.. This measures at least 2.7 cm 3-D reformatted images confirm the source data findings. IMPRESSION: 1.No acute vascular findings. No aortic aneurysm or dissection. Chronic vascular findings as above. 2.Hepatic cirrhosis. 3.There is an arterially enhancing 2 cm lesion at the hepatic dome. Given cirrhosis, findings concerning for possible neoplasm. Further evaluation with liver MRI recommended. 4.Large volume intra-abdominal ascites. 5.Large right and moderate left pleural effusions with adjacent atelectasis. 6.Sclerotic bone lesion involving the right pedicle at T10. Further evaluation with bone scan or MRI may be helpful as osseous metastases cannot entirely be excluded. THIS REPORT CONTAINS A SIGNIFICANT RESULT AND/OR RECOMMENDATION, WHICH REQUIRES THE ATTENTION OF THE LICENSE CAREGIVER RESPONSIBLE FOR THIS PATIENT. I HAVE SPECIFICALLY DESIGNATED THIS REPORT TO BE TELEPHONED BY THE RADIOLOGY DEPARTMENT. Electronically signed: Albert Gan MD. Not Vldtd Invalid Interpretation Code [facility] Labon 09-25-2023 Lab [id number] Ambrosio Blandon 1955 M Date Provider Department Center 09/25/2023 2245-[facility] OPD LAB RESOURCE [facility] OPD MD Medical C No family history on file Normal [facility] Orders Onlyon 09-23-2023 Orders Only [id number] Ambrosio Blandon 1955 M Date Provider Department Center 09/23/2023 204-HARSHA CONNER [facility] GI [facility] No family history on file Normal [facility] Orders Onlyon 09-15-2023 Orders Only [id number] Jamia,Wil emma 1955 M Date Provider Department Center 09/15/2023 BROOKLYNN ZEPEDA [facility] No family history on file Normal [facility] Orders Onlyon 09-14-2023 Orders Only [id number] Jamia,Wil emma 1955 M Date Provider Department Center 09/14/2023 BROOKLYNN ZEPEDA [facility] No family history on file Normal [facility] Orders Onlyon 08-28-2023 Orders Only [id number] Jamia,Ambrosio emma 1955 M Date Provider Department Center 08/28/2023 [id number], HISTORICAL GI Medical [facility] No family history on file [facility] Orders Onlyon 08-24-2023 Orders Only [id number] Jamia,Wil emma 1955 M Date Provider Department Center 08/24/2023 [id number], HISTORICAL GI [facility] No family history on file [facility] 29on 08-09-2023 29 Addended by: ARIAS JESUS on: 08/09/2023 12:50 PM Modules accepted: Orders Normal [facility] Orders Onlyon 08-09-2023 Orders Only [id number] Ambrosio Blandon emma 1955 M Date Provider Department Center 08/09/2023 [id number] SANTIZO GI Medical [facility]avi No family history on file [facility] Office Visiton 08-07-2023 Follow-up visit [id number] Jamia,Ambrosio emma 1955 M Date Provider Department Center 08/07/2023 294-ARIAS JESUS GI [facility] No family history on file Level of Service:27785 [place] OFFICE/OUTPATIENT NEW LOW MDM 30 MINUTES (GC) Reason for Visit and Comments: New Patient [632] Weight Loss [528992] - 30 pound weight loss since . Pt recently had surgery for 3 polyps removed and 1 hemorrhoid removal. Dyskenisia of esophgaus [Other] Nausea [70] Vomiting [120] - Pt has a urge to but does not vomit. Normal [facility] [place] 06-13-2023 L Specimen: [id number] Received: 06/14/23 Status: HUSAM Mirmartin Num: [id number] Spec Type: Surgical Subm Dr: Janneth Villegas DO Tissues: A Hemorrhoids (HEMORRHOID 9:00) Procedures: HE, Gross/Micro L3 Age/ Patient Sex Location Account Attending Physician Charles Blandon 67/M [place] [id number] Janneth Villegas DO SPEC NUM: [id number] RECD: 06/14/23 STATUS: HUSAM COFFEY NUM: [id number] WEN: 06/13/[address]: Janneth Villegas DO [...] cut surfaces with diffusely dilated blood-filled spaces. Coil Tester sections are submitted in 1 cassette as follows: A1 - 1 warehouse representative section from each fragment to demonstrate change in mucosal types of the largest fragment CPT Codes 70587 Specimen: [id number] Received: 06/14/23-753 Status: HUSAM Coffey Num: [id number] Spec Type: Surgical Subm Dr: Janneth Villegas DO Tissues: A Hemorrhoids (HEMORRHOID 9:00) Procedures: FAMILIA, Clark/Andi L3 Patient: Charles Blandon [id number] (Continued) Signed (signature on file) Linette Bean MD 06/27/239 Normal [facility] Automated basophil %Ordered By: Janneth Villegas on 06-02-2023 Basophils/100 WBC (Bld) 0.7 % Normal . [facility] Comment on above: Performed By: #### B MP, CBC #### [address] Automated basophil countOrde red By: Janneth Villegas on 06-02-2023 Basophils (Bld) [#/Vol] 0.0 10*3/uL Normal 0.0-0.2 [facility] Comment on above: Result Comment: PERF ORMED BY: [place] [address] PATHOLOGIST SALESPERSON WIGS CLARK LEARY M.D. Performed By: #### B MP, CBC #### [address] Automated blood monocyte cou ntOrdered By: Janneth Villegas on 06-02-2023 Monocytes (Bld) [#/Vol] 0.9 10*3/uL High 0.0-0.8 [facility] Comment on above: Performed By: #### B MP, CBC #### [address] Automated eosinophil %Ordere d By: Janneth Villegas on 06-02-2023 Eosinophils/100 WBC (Bld) 1.9 % Normal . [facility] Comment on above: Performed By: #### B MP, CBC #### [address] Automated eosinophil countOr dered By: Janneth Villegas on 06-02-2023 Eosinophils (Bld) [#/Vol] 0.1 10*3/uL Normal 0.0-0.45 [facility] Comment on above: Performed By: #### B MP, CBC #### [address] Automated monocyte %Ordered By: Janneth Villegas on 06-02-2023 Monocytes/100 WBC (Bld) 15.7 % Normal . [facility] Comment on above: Performed By: #### B MP, CBC #### [address] Automated neutrophil %Ordere d By: Janneth Villegas on 06-02-2023 Neutrophils/100 WBC (Bld) 68.5 % Normal . [facility] Comment on above: Performed By: #### B MP, CBC #### [address] Basic Metabolic Panelon 05-18 GFR/1.73 sq M.predicted MDRD (S/P/Bld) [Vol rate/Area] mL/min/{1.73_m2} Normal [facility] Comment on above: Performed By: #### B MP, CBC #### [address] Calcium [Mass/volume] in Ser um or PlasmaOrdered By: Janneth Villegas on 06-02-2023 Calcium [Mass/Vol] 8.6 mg/dL Normal 8.6-10.3 [facility] Comment on above: Result Comment: PERF ORMED BY: [place] [address] PATHOLOGIST SALESPERSON WIGS CLARK LEARY M.D. Performed By: #### B MP, CBC #### [address] Carbon dioxide, total [Moles /volume] in Serum or PlasmaOrdered By: Janneth Villegas on 06-02-2023 CO2 [Moles/Vol] 27.3 mmol/L Normal 21.0-31.0 [facility] Comment on above: Performed By: #### B MP, CBC #### [address] Chloride [Moles/volume] in S mateo or PlasmaOrdered By: Janneth Villegas on 06-02-2023 Chloride [Moles/Vol] 96 mmol/L Low 98-107 [facility] Comment on above: Performed By: #### B MP, CBC #### [address] Complete Blood Count Auto Di ffon 06-02-2023 Mean Corpuscular HGB Conc 35.2 g/dL Normal 32.5-35.6 [facility] Comment on above: Performed By: #### B MP, CBC #### [place] [id number] [place] NRBC% 0.1 /100{WBC} Normal 0-0.5 [facility] Comment on above: Performed By: #### B MP, CBC #### [facility] [address] [place] [address] Creatinine [Mass/volume] in Serum or PlasmaOrdered By: Janneth Villegas on 06-02-2023 Creatinine [Mass/Vol] 1.07 mg/dL Normal 0.70-1.30 [facility] Comment on above: Performed By: #### B MP, CBC #### [facility] [address] [place] [address] ECG 12 lead ECGon 06-02-2023 ECG 12 lead ECG [facility] Main [place] [address] [place] [address] Electrocardiograph Report Signed Patient: Charles Blandon MR#: [id number] 66 : 1955 Acct:[id number] Age/Sex: 67 / M ADM Date: 06/02/23 Loc: Room: Type: [facility] Attending Dr: Janneth Villegas DO Ordering Provider: [...] previous ECGs available Confirmed by Gurpreet Dyson ([id number]) on 06/02/2023 6:21:10 PM Referred By: VENKAT VILLEGAS Electronically Signed By:Gurpreet Dyson Transcribed By: MUS Signed By Gurpreet Dyson MD 06/02/23 1821 Normal [facility] Erythrocyte distribution wid th [Ratio] by Automated countOrdered By: Janneth Villegas on 06-02-2023 Erythrocyte distribution width (RBC) [Ratio] 13.8 % Normal 12.0-14.8 [facility] Comment on above: Performed By: #### B MP, CBC #### [facility] [address] [place] [address] [place] Erythrocytes [#/volume] in B lood by Automated countOrdered By: Janneth Villegas on 06-02-2023 RBC (Bld) [#/Vol] 3.45 10*6/uL Low 3.90-5.60 [facility] Comment on above: Performed By: #### B MP, CBC #### [facility] [address] Glucose [Mass/volume] in Ser um or PlasmaOrdered By: Janneth Villegas on 06-02-2023 Glucose [Mass/Vol] 132 mg/dL High 70-100 [facility] Comment on above: ADA recommended refe rence rangeRandom Glucose Reference Range is dependent on time and content of last meal. Glucose of more than 200 mg/dL in a nonstressed, ambulatory subject supports the diagnosis of Diabetes Mellitus. Result Comment: [place] Glucose Reference Range is dependent on time and content of last meal. Glucose of more than 200 mg/dL in a nonstressed, ambulatory subject supports the diagnosis of Diabetes Mellitus. ADA recommended reference range Performed By: #### B MP, CBC #### [facility] [address] [place] [address] [place] Hematocrit [Volume Fraction] of Blood by Automated countOrdered By: Janneth Villegas on 06-02-2023 Hematocrit (Bld) [Volume fraction] 35.5 % Low 38.8-50.0 [facility] Comment on above: Performed By: #### B MP, CBC #### [facility] [address] [place] [address] [place] Hemoglobin [Mass/volume] in BloodOrdered By: Janneth Villegas on 06-02-2023 Hemoglobin (Bld) [Mass/Vol] 12.5 g/dL Low 13.0-17.0 [facility] Comment on above: Performed By: #### B MP, CBC #### [address] Leukocytes [#/volume] correc jamila for nucleated erythrocytes in Blood by Automated counOrdered By: Janneth Villegas on 06-02-2023 WBC corrected for nucl RBC Auto (Bld) [#/Vol] 5.7 10*3/uL 4.1-10.5 [facility] Leukocytes [#/volume] in Blo od by Automated countOrdered By: Janneth Villegas on 06-02-2023 WBC (Bld) [#/Vol] 5.7 10*3/uL Normal 4.1-10.5 [facility] Comment on above: Performed By: #### B MP, CBC #### [address] Lymphocytes [#/volume] in Bl ood by Automated countOrdered By: Janneth Villegas on 06-02-2023 Lymphocytes (Bld) [#/Vol] 0.7 10*3/uL Low 1.00-4.8 [facility] Comment on above: Performed By: #### B MP, CBC #### [facility] [address] [place] [address] Lymphocytes/100 leukocytes i n Blood by Automated countOrdered By: Janneth Villegas on 06-02-2023 Lymphocytes/100 WBC (Bld) 13.2 % Normal . [facility] Comment on above: Performed By: #### B MP, CBC #### [facility] [address] [place] [address] MCH [Entitic mass] by Automa jamila countOrdered By: Janneth Villegas on 06-02-2023 MCH (RBC) [Entitic mass] 36.2 pg High 27.5-35.2 [facility] Comment on above: Performed By: #### B MP, CBC #### [facility] [address] [place] [address] MCHC Auto (RBC) [Mass/Vol]Or dered By: Janneth Villegas on 06-02-2023 MCHC (RBC) [Mass/Vol] 35.2 g/dL 32.5-35.6 [facility] MCV [Entitic volume] by Auto mated countOrdered By: Janneth Villegas on 06-02-2023 MCV (RBC) [Entitic vol] 102.9 fL High 83.5-101 [facility] Comment on above: Performed By: #### B MP, CBC #### [facility] [address] Neutrophils [#/volume] in Bl ood by Automated countOrdered By: Janneth Villegas on 06-02-2023 Neutrophils (Bld) [#/Vol] 3.9 10*3/uL Normal 1.8-7.7 [facility] Comment on above: Performed By: #### B MP, CBC #### [address] No Panel InformationOrdered By: Janneth Villegas on 06-02-2023 Estimated GFR (CKD-EPI) > 60.0 mL/Min [facility] Creatinine Clearance (Chem N/A [facility] Nucleated erythrocytes [Pres ence] in Blood by Automated countOrdered By: Janneth Villegas on 06-02-2023 Nucleated RBC Auto Ql (Bld) 0.1 /100{WBC} 0-0.5 [facility] Platelet mean volume [Entiti c volume] in Blood by Automated countOrdered By: Janneth Villegas on 06-02-2023 Platelet mean volume (Bld) [Entitic vol] 8.1 fL Normal 6.6-10.1 [facility] Comment on above: Performed By: #### B MP, CBC #### [facility] [address] [place] [address] Platelets [#/volume] in Bloo d by Automated countOrdered By: Janneth Villegas on 06-02-2023 Platelets (Bld) [#/Vol] 153 10*3/uL Normal 150-450 [facility] Comment on above: Performed By: #### B MP, CBC #### [place] [address] [place] Potassium [Moles/volume] in Serum or PlasmaOrdered By: Janneth Villegas on 06-02-2023 Potassium [Moles/Vol] 4.8 mmol/L Normal 3.5-5.1 [facility] Comment on above: Performed By: #### B MP, CBC #### [address] Serum or plasma anion gap de terminationOrdered By: Janneth Villegas on 06-02-2023 Anion gap [Moles/Vol] 13.5 mmol/L Normal 6.0-15.0 [facility] Comment on above: Performed By: #### B BRADLEY, CBC #### [address] Sodium [Moles/volume] in Ser um or PlasmaOrdered By: Janneth Villegas on 06-02-2023 Sodium [Moles/Vol] 132 mmol/L Low 136-145 [facility] Comment on above: Performed By: #### B BRADLEY, CBC #### [address] Urea nitrogen [Mass/volume] in Serum or PlasmaOrdered By: Janneth Villegas on 06-02-2023 Urea nitrogen [Mass/Vol] 12 mg/dL Normal 7-25 [facility] Comment on above: Performed By: #### B BRADLEY, CBC #### [address] NM gastric emptying studyon 04-26-2023 NM gastric emptying study [facility] [place] [address] Nuclear Medicine Report Signed Patient: Charles Blandon MR#: [id number] 66 : 1955 Acct:[id number] Age/Sex: 67 / M ADM Date: 04/26/23 Loc: [place] Room: Type: [facility] Attending Dr: Lorna Ortega APRN Copies to: Morales Alvarez Jr, DO Lorna Ortega APRN Ordering Provider: Lorna Ortega APRN Date of Service: 04/26/23 NM/NM gastric emptying study: Nausea;Early satiety GASTRIC EMPTYING [...] 1/2 for gastric emptying is 11 minutes. NM/NM gastric emptying study IMPRESSION: NO SCINTIGRAPHIC EVIDENCE OF GASTROPARESIS. Impression dictated by: Morales Alvarez Jr., D.OAshley04/26/2023 10:18 AM Dictation Location: [place] [address] Transcribed By: [facility] 04/26/23 1018 Dictated By: Morales Alvarez Jr, DO 04/26/23 1017 Signed By: 04/26/23 1018 Normal [facility] Albumin [Mass/volume] in Ser um or Plasma by Bromocresol green (BCG) dye binding methoOrdered By: Lorna Ortega on 04-12-2023 Albumin BCG dye [Mass/Vol] 3.0 g/dL 3.5-5.7 [facility] Bilirubin.total [Mass/volume ] in Serum or PlasmaOrdered By: Lorna Ortega on 04-12-2023 Bilirubin [Mass/Vol] 1.3 mg/dL High 0.3-1.0 [facility] Comment on above: Samples from patient s who have taken Naproxen have shown spurious elevation in Total Bilirubin levels. A metabolite of Naproxen, O-desmethylnaproxen, has been shown to interfere with the Jendrassik-Grof method for measuring Total Bilirubin. Order Comment: Reaso n for Exam Cirrhosis of liver Result Comment: Samp les from patients who have taken Naproxen have shown spurious elevation in Total Bilirubin levels. A metabolite of Naproxen, O-desmethylnaproxen, has been shown to interfere with the Jendrassik-Grof method for measuring Total Bilirubin. Performed By: #### C MP #### [address] Calcium [Mass/volume] in Ser um or PlasmaOrdered By: Lorna Ortega on 04-12-2023 Calcium [Mass/Vol] 8.3 mg/dL Low 8.6-10.3 [facility] Comment on above: Order Comment: Reaso n for Exam Cirrhosis of liver Performed By: #### C MP #### [facility] [address] [place] [id number] [place] Carbon dioxide, total [Moles /volume] in Serum or PlasmaOrdered By: Lorna Ortega on 04-12-2023 CO2 [Moles/Vol] 27.3 mmol/L Normal 21.0-31.0 [facility] Comment on above: Order Comment: Reaso n for Exam Cirrhosis of liver Performed By: #### C MP #### [facility] [address] [place] [id number] [facility] Comprehensive Metabolic Pane mayito 04-12-2023 Albumin [Mass/Vol] 3.397315 g/dL Low 3.5-5.7 g/dL [facility] Other Bilirubin [Mass/Vol] 1.6237186 mg/dL High 0.3- 1.0 mg/dL [facility] Other Calcium [Mass/Vol] 8.7781474 mg/dL Low 8.6-10 .3 mg/dL [facility] Other CO2 [Moles/Vol] 27.19386909 mmol/L Normal 21.0-3 1.0 mmol/L [facility] Other Creatinine [Mass/Vol] 0.74013258 mg/dL Normal 0. 70-1.30 mg/dL [facility] Other Potassium [Moles/Vol] 5.35056261 mmol/L Normal 3 .5-5.1 mmol/L [facility] Other Protein [Mass/Vol] 6.960330 g/dL Low 6.4-8.9 g/dL [facility] Other Comprehensive Metabolic Panel 3.3 g/dL [facility] Other Albumin [Mass/Vol] 3.0 g/dL Low 3.5-5.7 [facility] Comment on above: Order Comment: Reaso n for Exam Cirrhosis of liver Performed By: #### C MP #### [facility] [address] GFR/1.73 sq M.predicted MDRD (S/P/Bld) [Vol rate/Area] mL/min/{1.73_m2} Normal [facility] Other Comment on above: Order Comment: Reaso n for Exam Cirrhosis of liver Performed By: #### C MP #### [facility] [address] Comprehensive Metabolic Pane lOrdered By: Lorna Ortega on 04-12-2023 Albumin/Globulin [Mass ratio] 0.9 {ratio} Normal [facility] Comment on above: Order Comment: Reaso n for Exam Cirrhosis of liver Performed By: #### C MP #### [facility] [address] ALP [Catalytic activity/Vol] 158 U/L High 34-104 [facility] Comment on above: Order Comment: Reaso n for Exam Cirrhosis of liver Result Comment: PERF ORMED BY: [place] [address] PATHOLOGIST SALESPERSON WIGS CLARK LEARY M.D. Performed By: #### C MP #### [facility] [address] [place], [place] [id number] [facility] ALT [Catalytic activity/Vol] 35 U/L Normal 7-52 [facility] Comment on above: Order Comment: Reaso n for Exam Cirrhosis of liver Performed By: #### C MP #### [facility] [address] [place] [id number] [place] AST [Catalytic activity/Vol] 76 U/L High 13-39 [facility] Comment on above: Order Comment: Reaso n for Exam Cirrhosis of liver Performed By: #### C MP #### [facility] [address] [place] [address] [place] Chloride [Moles/Vol] 95 mmol/L Low 98-107 [facility] Comment on above: Order Comment: Reaso n for Exam Cirrhosis of liver Performed By: #### C MP #### [facility] [address] Glucose [Mass/Vol] 94 mg/dL Normal 70-100 [facility] Comment on above: ADA recommended refe rence rangeRandom Glucose Reference Range is dependent on time and content of last meal. Glucose of more than 200 mg/dL in a nonstressed, ambulatory subject supports the diagnosis of Diabetes Mellitus. Order Comment: Reaso n for Exam Cirrhosis of liver Result Comment: [place] Glucose Reference Range is dependent on time and content of last meal. Glucose of more than 200 mg/dL in a nonstressed, ambulatory subject supports the diagnosis of Diabetes Mellitus. ADA recommended reference range Performed By: #### C MP #### [facility] [address] Sodium [Moles/Vol] 127 mmol/L Low 136-145 [facility] Comment on above: Order Comment: Reaso n for Exam Cirrhosis of liver Performed By: #### C MP #### [facility] [address] [place] [address] [place] Urea nitrogen [Mass/Vol] 9 mg/dL Normal 7-25 [facility] Comment on above: Order Comment: Reaso n for Exam Cirrhosis of liver Performed By: #### C MP #### [facility] [address] [place] [address] [place] Creatinine [Mass/volume] in Serum or PlasmaOrdered By: Lorna Ortega on 04-12-2023 Creatinine [Mass/Vol] 0.81 mg/dL Normal 0.70-1.30 [facility] Comment on above: Order Comment: Reaso n for Exam Cirrhosis of liver Performed By: #### C MP #### [address] No Panel InformationOrdered By: Lorna Ortega on 04-12-2023 Estimated GFR (CKD-EPI) > 60.0 mL/Min [facility] Creatinine Clearance (Chem N/A [facility] Potassium [Moles/volume] in Serum or PlasmaOrdered By: Lorna Ortega on 04-12-2023 Potassium [Moles/Vol] 5.1 mmol/L Normal 3.5-5.1 [facility] Comment on above: Order Comment: Reaso n for Exam Cirrhosis of liver Performed By: #### C MP #### [address] Protein [Mass/volume] in Ser um or PlasmaOrdered By: Lorna Ortega on 04-12-2023 Protein [Mass/Vol] 6.3 g/dL Low 6.4-8.9 [facility] Comment on above: Order Comment: Reaso n for Exam Cirrhosis of liver Performed By: #### C MP #### [address] Serum globulin measurement b y calculation (mass/volume)Ordered By: Lorna Ortega on 04-12-2023 Globulin (S) [Mass/Vol] 3.3 g/dL Normal [facility] Comment on above: Order Comment: Reaso n for Exam Cirrhosis of liver Performed By: #### C MP #### [address] Serum or plasma anion gap de terminationOrdered By: Lorna Ortega on 04-12-2023 Anion gap [Moles/Vol] 9.8 mmol/L Normal 6.0-15.0 [facility] Comment on above: Order Comment: Reaso n for Exam Cirrhosis of liver Performed By: #### C MP #### [address] XR RIBS 2 VIEWS LEFT WITH CH [...] Normal Not Available US liveron 11-15-2022 liver [facility] Main [place] [address] [place], [place] [id number] Ultrasound Report Signed Patient: Charles Blandon MR#: [id number] 66 : 1955 Acct:[id number] Age/Sex: 67 / M ADM Date: 11/15/22 Loc: Room: Type: [facility] Attending Dr: Lorna Ortega AEROSPACE MANAGER Ordering Provider: Lorna Ortega APRN Date of [...] Albin Villela M.D.11/15/2022 12:48 PM Dictation Location: [place] [address] Tech: [employer] Transcribed By: ROLAND 11/15/22 1248 Dictated By: Albin [place] DO 11/15/22 1245 Signed By: 11/15/22 1248 Normal [facility] Actin smooth muscle IgG Ab [ Units/volume] in SerumOrdered By: Lex Carroll on 09-21-2022 Actin smooth muscle IgG Qn (S) 8 Units 0-19 [facility] Comment on above: Negative 0 - 19 Weak positive 20 - 30 Moderate to strong positive >30 Actin Antibodies are found in 52-85% of patients with autoimmune hepatitis or chronic active hepatitis and in 22% of patients with primary biliary cirrhosis. Alanine aminotransferase [En zymatic activity/volume] in Serum or PlasmaOrdered By: Lex Carroll on 09-21-2022 ALT [Catalytic activity/Vol] 30 U/L 7-52 [facility] Albumin [Mass/volume] in Ser um or Plasma by Bromocresol green (BCG) dye binding methoOrdered By: Lex Carroll on 09-21-2022 Albumin BCG dye [Mass/Vol] 3.6 g/dL 3.5-5.7 [facility] Alkaline phosphatase [Enzyma tic activity/volume] in Serum or PlasmaOrdered By: Lex Carroll on 09-21-2022 ALP [Catalytic activity/Vol] 96 U/L 34-104 [facility] Aspartate aminotransferase [ Enzymatic activity/volume] in Serum or PlasmaOrdered By: Lex Carroll on 09-21-2022 AST [Catalytic activity/Vol] 55 U/L 13-39 [facility] Basophils Auto (Bld) [#/Vol] Ordered By: Lex Carroll on 09-21-2022 Basophils (Bld) [#/Vol] 0.0 10*3/uL 0.0-0.2 [facility] Basophils/100 WBC Auto (Bld) Ordered By: Lex Carroll on 09-21-2022 Basophils/100 WBC (Bld) 0.9 % . [facility] Bilirubin.total [Mass/volume ] in Serum or PlasmaOrdered By: Lex Carroll on 09-21-2022 Bilirubin [Mass/Vol] 0.9 mg/dL 0.3-1.0 [facility] Calcium [Mass/volume] in Ser um or PlasmaOrdered By: Lex Carroll on 09-21-2022 Calcium [Mass/Vol] 8.7 mg/dL 8.6-10.3 [facility] Carbon dioxide, total [Moles /volume] in Serum or PlasmaOrdered By: Lex Carroll on 09-21-2022 CO2 [Moles/Vol] 26.9 mmol/L 21.0-31.0 [facility] Chloride [Moles/volume] in S mateo or PlasmaOrdered By: Lex Carroll on 09-21-2022 Chloride [Moles/Vol] 108 mmol/L 98-107 [facility] Cholesterol [Mass/volume] in Serum or PlasmaOrdered By: Lex Carroll on 09-21-2022 Cholesterol [Mass/Vol] 175 mg/dL 140-200 [facility] Comment on above: Chol less than 200 m g/dl low riskChol 201-239 mg/dl borderline riskChol 240 mg/dl and greater high risk Cholesterol in LDL Calc [Mas s/Vol]Ordered By: Lex Carroll on 09-21-2022 Cholesterol in LDL [Mass/Vol] 94 mg/dL 0-100 [facility] Comment on above: LDL ATP III CLASSIFI CATIONLDL less than 100 mg/dL OptimalLDL 100-129 mg/dL Near or above optimalLDL 130-159 mg/dL Borderline highLDL 160-189 mg/dL HighLDL greater than 189 mg/dL Very high Cholesterol in VLDL Calc [Ma ss/Vol]Ordered By: Lex Carroll on 09-21-2022 Cholesterol in VLDL [Mass/Vol] 21 mg/dL [facility] Creatinine [Mass/volume] in Serum or PlasmaOrdered By: Lex Carroll on 09-21-2022 Creatinine [Mass/Vol] 0.90 mg/dL 0.70-1.30 [facility] Eosinophils Auto (Bld) [#/Vo l]Ordered By: Lex Carroll on 09-21-2022 Eosinophils (Bld) [#/Vol] 0.2 10*3/uL 0.0-0.45 [facility] Eosinophils/100 WBC Auto (Bl d)Ordered By: Lex Carroll on 09-21-2022 Eosinophils/100 WBC (Bld) 3.6 % . [facility] Erythrocyte distribution wid th Auto (RBC) [Ratio]Ordered By: Lex Carroll on 09-21-2022 Erythrocyte distribution width (RBC) [Ratio] 14.2 % 12.0-14.8 [facility] Globulin Calc (S) [Mass/Vol] Ordered By: Lex Carroll on 09-21-2022 Globulin (S) [Mass/Vol] 2.8 g/dL [facility] Glucose [Mass/volume] in Ser um or PlasmaOrdered By: Lex Carroll on 09-21-2022 Glucose [Mass/Vol] 123 mg/dL 70-100 [facility] Comment on above: ADA recommended refe rence rangeRandom Glucose Reference Range is dependent on time and content of last meal. Glucose of more than 200 mg/dL in a nonstressed, ambulatory subject supports the diagnosis of Diabetes Mellitus. Hematocrit Auto (Bld) [Volum e fraction]Ordered By: Lex Carroll on 09-21-2022 Hematocrit (Bld) [Volume fraction] 37.5 % 38.8-50.0 [facility] Hemoglobin [Mass/volume] in BloodOrdered By: Lex Carroll on 09-21-2022 Hemoglobin (Bld) [Mass/Vol] 12.9 g/dL 13.0-17.0 [facility] Hepatitis B virus surface Ag [Presence] in Serum or Plasma by ImmunoassayOrdered By: Lex Carroll on 09-21-2022 HBV surface Ag IA Ql Negative Negative [facility] Hepatitis C virus IgG Ab [Pr esence] in Serum or Plasma by ImmunoassayOrdered By: Lex Carroll on 09-21-2022 HCV IgG IA Ql Non-Reactive Non Reactive [facility] - CoagulationOrde red By: Lex Carroll on 09-21-2022 PT Coag (PPP) [Time] 13.0 s 9.0-12.9 [facility] Leukocytes [#/volume] correc jamila for nucleated erythrocytes in Blood by Automated counOrdered By: Lex Carroll on 09-21-2022 WBC corrected for nucl RBC Auto (Bld) [#/Vol] 4.2 10*3/uL 4.1-10.5 [facility] Lymphocytes Auto (Bld) [#/Vo l]Ordered By: Lex Carroll on 09-21-2022 Lymphocytes (Bld) [#/Vol] 1.1 10*3/uL 1.00-4.8 [facility] Lymphocytes/100 WBC Auto (Bl d)Ordered By: Lex Carroll on 09-21-2022 Lymphocytes/100 WBC (Bld) 27.1 % . [facility] MCH Auto (RBC) [Entitic mass ]Ordered By: Lex Carroll on 09-21-2022 MCH (RBC) [Entitic mass] 35.0 pg 27.5-35.2 [facility] MCHC Auto (RBC) [Mass/Vol]Or dered By: Lex Carroll on 09-21-2022 MCHC (RBC) [Mass/Vol] 34.4 g/dL 32.5-35.6 [facility] MCV Auto (RBC) [Entitic vol] Ordered By: Lex Carroll on 09-21-2022 MCV (RBC) [Entitic vol] 101.9 fL 83.5-101 [facility] Monocytes Auto (Bld) [#/Vol] Ordered By: Lex Carroll on 09-21-2022 Monocytes (Bld) [#/Vol] 0.5 10*3/uL 0.0-0.8 [facility] Monocytes/100 WBC Auto (Bld) Ordered By: Lex Carroll on 09-21-2022 Monocytes/100 WBC (Bld) 11.3 % . [facility] Neutrophils Auto (Bld) [#/Vo l]Ordered By: Lex Carroll on 09-21-2022 Neutrophils (Bld) [#/Vol] 2.4 10*3/uL 1.8-7.7 [facility] Neutrophils/100 WBC Auto (Bl d)Ordered By: Lex Carroll on 09-21-2022 Neutrophils/100 WBC (Bld) 57.1 % . [facility] No Panel InformationOrdered By: Lex Carroll on 09-21-2022 Estimated GFR (CKD-EPI) > 60.0 mL/Min [facility] Hepatitis B Core Total Antibody Negative Negative [facility] Comment on above: Performed at: [facility] [address] [id number] Director: John Tang PhD, Phone: [phone] Hepatitis C Interpretation See comment . [facility] Comment on above: Not infected with HC V unless early or acute infection issuspected (which may be delayed in an immunocompromisedindividual), or other evidence exists to indicate HCVinfection. Hepatitis C RNA Quantitative N/A [facility] Creatinine Clearance (Chem 88.23 [facility] Nucleated erythrocytes [Pres ence] in Blood by Automated countOrdered By: Lex Carroll on 09-21-2022 Nucleated RBC Auto Ql (Bld) 0.2 /100{WBC} 0-0.5 [facility] Platelet mean volume Auto (B ld) [Entitic vol]Ordered By: Lex Carroll on 09-21-2022 Platelet mean volume (Bld) [Entitic vol] 9.8 fL 6.6-10.1 [facility] Platelet poor plasma interna tional normalized ratio (INR) by coagulation assay (relatOrdered By: Lex Carroll on 09-21-2022 INR Coag (PPP) [Relative time] 1.1 {INR} [facility] Comment on above: INR Therapeutic Rang [...] 09-21-2022 Platelets (Bld) [#/Vol] 91 10*3/uL 150-450 [facility] Potassium [Moles/volume] in Serum or PlasmaOrdered By: Lex Carroll on 09-21-2022 Potassium [Moles/Vol] 5.0 mmol/L 3.5-5.1 [facility] Protein [Mass/volume] in Ser um or PlasmaOrdered By: Lex Carroll on 09-21-2022 Protein [Mass/Vol] 6.4 g/dL 6.4-8.9 [facility] RBC Auto (Bld) [#/Vol]Ordere d By: Lex Carroll on 09-21-2022 RBC (Bld) [#/Vol] 3.68 10*6/uL 3.90-5.60 [facility] Serum [id number] me asurementOrdered By: Lex Carroll on 09-21-2022 Alpha 1 antitrypsin [Mass/Vol] 205 mg/dL 101-187 [facility] Serum hepatitis B virus surf waldo antibody detectionOrdered By: Lex Carroll on 09-21-2022 HBV surface Ab Ql (S) Non-Reactive . [facility] Comment on above: Non Reactive: Incons istent with immunity, less than 10 mIU/mL Reactive: Consistent with immunity, greater than 9.9 mIU/mL Serum mitochondria M2 IgG an tibody assay (units/volume)Ordered By: Lex Carroll on 09-21-2022 Mitochondria M2 IgG Qn (S) <20.0 Units 0.0-20.0 [facility] Comment on above: Negative 0.0 - 20.0 Equivocal 20.1 - 24.9 Positive >24.9Mitochondrial (M2) Antibodies are found in 90-96% ofpatients with primary biliary cirrhosis.Performed at: [facility] [place] [id number] Director: John Tang PhD, Phone: [phone] Serum or plasma albumin/glob ulin mass ratioOrdered By: Lex Carroll on 09-21-2022 Albumin/Globulin [Mass ratio] 1.3 {ratio} [facility] Serum or plasma alpha 1 anti trypsin phenotyping identification by immunofixationOrdered By: Lex Carroll on 09-21-2022 Alpha 1 antitrypsin phenotyping Immunofixation Nom Mm . [facility] Comment on above: Phenotype Population A-1-AT [...] reference. Ranges used to confirm phenotype.Performed at: [facility] [place], [place] [id number] Director: John Tang PhD, Phone: [phone] at: [facility] [id number] Director: George Brown MD, Phone: [phone] Serum or plasma anion gap de terminationOrdered By: Lex Carroll on 09-21-2022 Anion gap [Moles/Vol] 11.1 mmol/L 6.0-15.0 [facility] Serum or plasma ceruloplasmi n measurement (mass/volume)Ordered By: Lex Carroll on 09-21-2022 Ceruloplasmin [Mass/Vol] 22.4 mg/dL 16.0-31.0 [facility] Comment on above: Performed at: [facility] [address] [id number] Director: John Tang PhD, Phone: [phone] Serum or plasma free cefurox nhi measurement (mass/volume)Ordered By: Lex Carroll on 09-21-2022 Cefuroxime free [Mass/Vol] Negative Negative [facility] Comment on above: Performed at: [facility] [address] [id number] Director: John Tang PhD, Phone: [phone] Serum or plasma high density lipoprotein (HDL) cholesterol measurementOrdered By: Lex Carroll on 09-21-2022 Cholesterol in HDL [Mass/Vol] 60 mg/dL 23-92 [facility] Comment on above: HDL CHOL ATP-III CLA SSIFICATION Cardiovascular RiskHDL > or equal to 60 mg/dL LOWHDL < 40 mg/dL HIGH Serum or plasma total choles terol/high density lipoprotein (HDL) cholesterol mass ratOrdered By: Lex Carroll on 09-21-2022 Cholesterol.total/Chol esterol in HDL [Mass ratio] 2.9 {ratio} <5.0 [facility] Sodium [Moles/volume] in Ser um or PlasmaOrdered By: Lex Carroll on 09-21-2022 Sodium [Moles/Vol] 141 mmol/L 136-145 [facility] Triglyceride [Mass/volume] i n Serum or PlasmaOrdered By: Lex Carroll on 09-21-2022 Triglyceride [Mass/Vol] 107 mg/dL 0-149 [facility] Comment on above: TRIG ATP III CLASSIF ICATIONTRIG less than 150 mg/dL NormalTRIG 150-199 mg/dL Borderline highTRIG 200-500 mg/dL High TRIG greater than 500 mg/dL Very highStandard traceable to the Center for Disease Conrtrol and Prevention (CDC) test method. Urea nitrogen [Mass/volume] in Serum or PlasmaOrdered By: Lex Carroll on 09-21-2022 Urea nitrogen [Mass/Vol] 9 mg/dL 7-25 [facility] WBC Auto (Bld) [#/Vol]Ordere d By: Lex Carroll on 09-21-2022 WBC (Bld) [#/Vol] 4.2 10*3/uL 4.1-10.5 [facility] PROGRESSon 04-05-2017 PROGRESS HNO ID: [id number] Author: Bebe Cunningham Ma Service: (none) Author Type: (none) Type: Progress Notes Filed: 04/05/2017 7:36 AM Note Text: PCP updated [facility] PROGRESS HNO ID: [id number] thor: Tanisha Clarkice: (none)Author Type: PhysicianType: Progress NotesFiled: 04/05/2017 7:36 AMNote Text:This note was created using Remedy Partnersriter.Marcio jonathon Blandon is a 61 year old male.Review of SystemsObjectiveThere were no vitals taken for this visit.Physical ExamAssessment and PlanPlease remove me as PCP if he is moving out of state and plans toestablish elsewhere.Thank you. [facility] SAMIREAJoaquín 04-04-2017 CNPTOUTREA Patient Outreach ([facility]) NATHANIEL BLANDON AM ([id number]) 1955 MDate Time Provider Mhfulncpcb97/19/17 TANISHA VAZQUEZ [facility] During your visit today, we recorded the following information about you:Bebe Cunningham Ma 04/05/2017 7:36 AM SignedSee refill request 03/30, pt moving to out of [facility] , do you want to updatePCPAmbadriana Vazquez MD 04/05/2017 7:36 AM SignedThis note was created using NoteWriter.SubjectiveWill jonathon Blandon is a 61 year old male.Review of SystemsObjectiveThere were no vitals taken for this visit.Physical ExamAssessment and PlanPlease remove me as PCP if he is moving out of [facility] and plans to [facility].Thank you.Bebe Cunningham Ma 04/05/2017 7:36 AM SignedPCP updatedAllergies As of Date: 04/04/2017 Noted Allergy ReactionBACTRIM (SULFAMETHOXAZOLE-TRIMETH *12/15/2014 2 - RashDate Reviewed: 01/04/2017Reviewed by: Bebe Cunningham Ma - Fully AssessedReason for Visit: PHMA/Care Gap Outreach [[id number]]Prescriptions as of 04/04/2017 Sig: METOPROLOL SUCCINATE ER [...] polyps [Z86.010]Follow-up and Disposition History RecordedEncounter Number: [id number] Status:Closed by BEBE CUNNINGHAM MA on 04/05/17 [facility] PROGRESSon 04-04-2017 PROGRESS HNO ID: [id number] Author: Bebe Cunningham Ma Service: (none) Author Type: (none) Type: Progress Notes Filed: 04/05/2017 7:36 AM Note Text: See refill request 03/30, pt moving to out of [facility] , do you want to update PCP [facility] OBSOLETEon 03-30-2017 OBSOLETE Refill ([facility]) NATHANIEL BLANDON AM ([id number]) 1955 MDate Time Provider Hqecoyjmiv56/14/17 TANISHA VAZQUEZ [facility] During your visit today, we recorded the following information about you:Bebe Cunningham Ma 03/30/2017 4:25 PM SignedPt due for yearly split in Abbyshreyas Cunningham Ma 03/31/2017 3:12 PM SignedPt [place] apt to see a new PCP therebut he does not have enough medication till aptScript pending please review/fileVirginia Sauceda CNP, CNP 03/31/2017 3:39 PM SignedThe following approved medication [...] 1 capsule by mouth once daily. CHIDI: Toma Sauceda CNPAllergies As of Date: 03/30/2017 Noted Allergy ReactionBACTRIM [...] Status:Closed by VIRGINIA SAUCEDA CNP on 03/31/17 [facility] Nurse Visit ([facility]) NATHANIEL BLANDON AM ([id number]) 1955 MDate Time Provider Suaagtftdo24/30/17 5:50 PM NURSE EYAD COLLAZO [facility] During your visit today, we recorded the following information about you:Referring Provider: SELF [[id number]]Allergies As of Date: 02/13/2017 Noted Allergy ReactionBACTRIM (SULFAMETHOXAZOLE-TRIMETH *12/15/2014 2 - RashDate Reviewed: 01/04/2017Reviewed by: Beeb Cunningham Ma - Fully AssessedPrimary Visit Diagnosis:Need [...] colonic polyps [Z86.010] Status:Closed by JUNAID OFFICE MGROTONIEL on 02/13/17 [facility] 02-13-2017 HOSP REFILL - MYCHART ([facility]) NATHANIEL BLANDON AM ([id number]) 1955 MDate Time Provider Zzauqjoevz36/30/17 TANISHA VAZQUEZ During your visit today, we recorded the following information about you:Bebe Cunningham Ma 02/13/2017 2:35 PM SignedMessage from [facility]:Original authorizing provider: Ruben Iqbal would like a refill of the following medications:zolpidem (AMBIEN) 10 mg tab [Tanisha Vazquez MD]Preferred pharmacy: [id number] [place] [address] - [id number] - [phone] [facility] [address]Ktrcykq:Bebe Cunningham Ma 02/13/2017 2:38 PM SignedScript pending please review/fileLast filled 04/28/16Next appt: 02/13/2017 nurse visit (flu shot )Last appt: 01/04/2017Tanisha Vazquez MD 02/13/2017 2:45 PM SignedPlease advise the patient that the prescription has been refilled.Thank you,Shirley Iqbal Ma 02/13/2017 2:55 PM SignedScript called All As of Date: 02/13/2017 Noted Allergy ReactionBACTRIM (SULFAMETHOXAZOLE-TRIMETH *12/15/2014 2 - RashDate Reviewed: 09/20/2017Reviewed by: Bebe Cunningham Ma - Fully AssessedReason [...] Status:Closed by TANISHA VAZQUEZ MD on 02/13/17 [facility] CNOVon 01-04-2017 CNOV Office Visit ([facility]) NATHANIEL BLANDON AM ([id number]) 1955 MDate Time Provider Department01/04/17 9:00 AM TANISHA VAZQUEZ [facility] During your visit today, we recorded the following information about you: Temperature Pulse Blood pressure Weight 98.2 degrees 59/minute 172/93 98 kgTanisha Vazquez MD 01/04/2017 9:00 AM Sammy Blandon is a 61 year [...] allergiesREVIEW OF SYSTEMS:As noted in HPIPHYSICAL EXAMINATION: BP: 172/93BP Site: Left ArmBP Position: SittingBP Cuff [...] AP/LAT/OBL LT- XR FOOT GENERAL 3V AP/LAT/OBL LTBAILEY Iqbaleferrfina Provider: TANISHA VAZQUEZ [[id number]]Allergies As of Date: 01/04/2017 Noted Allergy ReactionBACTRIM (SULFAMETHOXAZOLE-TRIMETH *12/15/2014 2 - RashDate Reviewed: 01/04/2017Reviewed by: Bebe Cunningham Ma - Fully AssessedReason for Visit: Acute Visit [896] Cmt: swollen toe x 2 weeksReason For Visit History RecordedPrimary Visit Diagnosis:Great toe pain, left [M79.675]Order(s):XR TOE AP/LAT/OBL LT [1051095] Order #: [id number] FUTURE XR FOOT GENERAL 3V AP/LAT/OBL LT [5471320] Order #: [id number] FUTUREPrescriptions as of 01/04/2017 Sig: METOPROLOL SUCCINATE [...] daily with meals. Disc: Course of therapy completedEncalameda hospitaler Number: [id number] Status:Closed by TANISHA VAZQUEZ MD on 01/04/17 [facility] Jose Carlos 01-04-2017 [facility] NATHANIEL BLANDON AM ([id number]) 1955 MDate Time Provider Department01/04/17 TANISHA VAZQUEZ [facility] During your visit today, we recorded [...] T TO ORTHOPAEDIC SURGERY [19990518] Order #: [id number]: 1Prescriptions as of 01/04/2017 Sig: METOPROLOL SUCCINATE [...] Status:Closed by TANISHA VAZQUEZ MD on 01/04/17 [facility] PROGRESSon 01-04-2017 PROGRESS HNO ID: [id number] thor: Jaclyn Lowe (Tech) JoeService: (none)Author Type: TechnicianType: Progress NotesFiled: 01/04/2017 9:36 AMNote Text: Radiology Service Progress NotePATIENT NAME: Charles AyalagMRN: [id number] OF SERVICE: January 04, 2017TIME: 9:36 AMPATIENT IDENTITY VERIFICATION COMPLETED USING TWO (2) METHODS: Patientconfirmed name verbally and Date of .PATIENT GENDER DATA: MalePATIENT RELEVANT IMPLANT DATA REVIEWED: Not ApplicableRADIOLOGY DEPARTMENT: General X-ray: Exam(s) Completed: Lower ExtremityX-Ray(s): Foot, Left and Wt. Bearing and Toes, Left:PERIPHERAL IV DATA: Not applicableSIGNED BY: Jaclyn Diaz, RRTSeptember 2016 9:36 AM [facility] PROGRESS HNO ID: [id number] thor: Tanisha Clarkice: (none)Author Type: PhysicianType: Progress NotesFiled: 01/04/2017 9:00 [...] GENERAL 3V AP/LAT/OBL LTTanisha Vazquez MD [facility] XR FOOT 3V AP/LAT/OBL LTon 0 01-04-2017 [...] phalanx with extension into the 1st IP joint.Broadloom Weaver: SRINI Transcribe Date/Time: Jan 04 2017 10:28ADictated by : MALORIE NICHOLS MDThis examination was interpreted and the report reviewed and electronically signed by: MALORIE NICHOLS MD on Jan 04 2017 2:47PM [id number] [facility] XR TOE 3V AP/LAT/OBL LTon XR TOE [...] phalanx with extension into the 1st IP joint.Broadloom Weaver: SRINI Transcribe Date/Time: Jan 04 2017 10:28ADictated by : MALORIE NICHOLS MDThis examination was interpreted and the report reviewed and electronically signed by: MALORIE NICHOLS MD on Jan 04 2017 2:47PM [id number] [facility] ([facility]) NATHANIEL BLANDON AM ([id number]) 1955 MDate Time Provider Department12/11/16 COY BLANCHARD [facility] During your visit today, we recorded [...] Status:Closed by COY BLANCHARD MD on 12/12/16 [facility] Office [facility] ([facility]) NATHANIEL BLANDON AM ([id number]) 1955 [facility] Department12/10/16 9:30 AM COY BLANCHARD [facility] During your visit today, we recorded the following information about you: Temperature Pulse Blood pressure Weight 98.5 degrees 88/minute 158/92 95.7 kgCoy Blanchard MD, MD 12/10/2016 9:59 AM Sammy León Jamia is a 61 [...] ?F) (Oral) Wt 95.7 kg (211 lb) RfQ958% BMI 30.71 kg/m2BMI 30.71 kg/(m2)General: alert and [...] MG TABLET- URIC ACID BLOODMattjose juan Blanchard MDK[facility] Hospital 12/10/2016 9:58 AM SignedPhlebotomy was performed per [...] 1 URIC ACID BLOOD [SQURIC] Order #: [id number] as of 12/10/2016 Sig: METOPROLOL SUCCINATE ER [...] to improve.Follow-up and Disposition History RecordedEncounter Number: [id number] Status:Closed by COY BLANCHARD MD on 12/10/16 [facility] PROGRESSon 12-10-2016 PROGRESS HNO ID: [id number] thor: Coy Blanchard, [facility] LA[facility]ONervice: (none)Author Type: PhysicianType: Progress NotesFiled: 12/10/2016 9:59 AMNote Text:Charles Blandon is a 61 year old male here complaining of left toe pain.According to the patient, he states he has been diagnosed with gout in [facility] and has had similar symptoms. Last night, [...] diet- NAPROXEN 250 MG TABLET- URIC ACID ANA PAULAMattjose juan Blanchard MD [facility] Uric Acidon 12-10-2016 Urate 8.2 mg/dL High 4.0-8.1 [facility] Comment on above: Performed By: #### U BARB ####[facility] [address] [place], [place] [phone] CNOVon 11-01-2016 CNOV Office Visit ([facility]) NATHANIEL BLANDON AM ([id number]) 1955 MDate Time Provider Department11/01/16 9:30 AM ROYCE ARAIZA During your visit today, we recorded the following information about you: Pulse Blood pressure 57/minute 165/82Aloalbania Araiza MD 11/01/2016 2:06 PM SignedDERMATOLOGY CONSULT FOR MOHSSERVICE DATE: 11/01/2016PRIMARY CARE PHYSICIAN: MORENA Iqbal PROVIDER:Tanisha Vazquez MD[address] [facility] [address]Dtiybmbbavdm requested for an opinion regarding the evaluation and treatmentof skin cancer. My final impression and recommendations will be communicatedback to the requesting physician by way of the shared medical record or lettervia US mail.SUBJECTIVECHIEF COMPLAINT: BCCHISTORY OF PRESENT ILLNESSBIOPSY INFORMATION:1. Pathology Results: BCC Nodular and Ulcerated of the LEFT TEMPLEReport Number: Inside Pathology [id number] Performed: 08/10/2016Performed By: [facility] ProviderPast Treatment: No Past Treatment Tumor Type: PrimaryPresent For: unknown amount of month(s)Signs ANDamp; Symptoms: Non-healingPAST DERM HISTORY: No History of Skin CancerFAMILY HISTORY: No History of Skin CancerPAST MEDICAL HISTORYDiagnosis Date- Recinos's esophagus- GERD (gastroesophageal reflux disease)- HTN (hypertension)- Hx of colonic polyps- Osteoporosis- Umbilical herniaPAST SURGICAL [id number]: CHOLECYSTECTOMYNo date: COLONOSCOPY Comment: every 3 yearsNo [...] No suspicious lesions.PHOTOS: Photos taken with consent.PLANIMPRESSION:Rosita yu etiology, prognosis, and diagnosis of the skin [...] Nose, Chin, Lips, Ears, Periauricular Skin and Yarsanism)Pre-op Size: 0.6 cm - 1 cm, (0.7cm [...] and Past Histories independentlygathered by the clinical program support specialist and the remaining scribed noteaccurately describes my personal service to the patient.SIGNATURE: Royce Araiza MD PATIENT NAME: Charles AyalagDATE: November 01, 2016 : 10:20 AM PAGER/CONTACT #:MOHS MICROGRAPHIC OPERATIVE REPORTSERVICE DATE: 11/01/2016SERVICE TIME: 9:10 AMLOCATION:[facility] [place], [place] [address]YXLUZXPWC PROVIDER:Tanisha Vazquez MD[address] [facility] [address]ATAHBLKEW START TIME: 941PROCEDURE END TIME: URGEON: Dr. [...] Available at Bedside: Inside pathology report # [id number] Size: 0.6 cm - 1 cm, (0.7cm [...] surgery on a Primarytumor type from LEFT MORMON (location of tumor).Post-op Defect Size: 1.0 x [...] GIVEN WITH VERBAL UNDERSTANDING: YesPATIENT DISCHARGED TO SHIFT COORDINATOR/NAME: SelfFOLLOW UP: Return for wound care check in 6 weeksSee Dermatology yearly or as needed for FSE'sPRNThe documentation for this note was completed by Lis Serrano RN acting asscribe for Royce Araiza MD. November 01, 2016 10:29 AM.I agree with the Chief Complaint, ROS, and Past Histories independentlygathered by the clinical program support specialist and the remaining scribed noteaccurately describes my [...] SurgeryDepartment to speak to a Nurse at [phone].After 5 pm, nights, and weekends, please call [phone] or and ask for the dermatology surgery fellow an employee sponsor or advocate and.Referring Provider: TANISHA VAZQUEZ [[id number]]Allergies As of Date: 11/01/2016 Noted Allergy ReactionBACTRIM (SULFAMETHOXAZOLE-TRIMETH *12/15/2014 2 - RashDate Reviewed: 11/01/2016Reviewed by: Royce Araiza - Fully AssessedPrimary Visit Diagnosis:Basal cell carcinoma of left confucianist region [C44.319]Prescriptions as of 11/01/2016 Sig: METOPROLOL [...] Department to speak to a Nurse at [phone]. After 5 pm, nights, and weekends, please call [phone] or and ask for the dermatology surgery fellow an employee sponsor or advocate and.Disposition: Return in about 6 weeks (around 12/13/2016) for WOUND CHECK.Follow-up and Disposition History RecordedEncounter Number: [id number] Status:Closed by ROYCE ARAIZA MD on 11/01/16 [facility] PROGRESSon 11-01-2016 PROGRESS HNO ID: [id number] thor: Royce Lindoervice: (none)Author Type: PhysicianType: Progress NotesFiled: 11/01/2016 2:06 PMNote Text:DERMATOLOGY CONSULT FOR MOHSSERVICE DATE: 11/01/2016PRIMARY CARE PHYSICIAN: MORENA Iqbal PROVIDER:Tanisha Vazquez MD[address] [place] [address]Consultation requested for an opinion regarding the evaluation andtreatment of skin cancer. My final impression and recommendations will becommunicated back to the requesting physician by way of the shared medicalrecord or letter via US mail.SUBJECTIVECHIEF COMPLAINT: BCCHISTORY OF PRESENT ILLNESSBIOPSY INFORMATION:1. Pathology Results: BCC Nodular and Ulcerated of the LEFT TEMPLEReport Number: Inside Pathology [id number] Performed: 08/10/2016Performed By: [facility] ProviderPast Treatment: No Past Treatment Tumor Type: PrimaryPresent For: unknown amount of month(s)Signs AND Symptoms: Non-healingPAST DERM HISTORY: No History of Skin CancerFAMILY HISTORY: No History of Skin CancerPAST MEDICAL HISTORYDiagnosis Date- Recinos's esophagus- GERD (gastroesophageal reflux disease)- HTN (hypertension)- Hx of colonic polyps- Osteoporosis- Umbilical herniaPAST SURGICAL [id number]: CHOLECYSTECTOMYNo date: COLONOSCOPY Comment: every 3 yearsNo [...] malaise.SKIN: No suspicious lesions.PHOTOS: Photos taken with consent.PLANIMPRESSION: e etiology, prognosis, and diagnosis of the [...] Eyebrows, Nose, Chin, Lips, Ears, Periauricular Skinand Yarsanism)Pre-op Size: 0.6 cm - 1 cm, (0.7cm [...] and Past Histories independentlygathered by the clinical program support specialist and the remaining scribed noteaccurately describes my personal service to the patient.SIGNATURE: Royce Araiza MD PATIENT NAME: Charles AyalagDATE: November 01, 2016 : 10:20 AM PAGER/CONTACT #:MOHS MICROGRAPHIC OPERATIVE REPORTSERVICE DATE: 11/01/2016SERVICE TIME: 9:10 AMLOCATION:Celine Monzon [facility] [place], [place] [address]RZOTCTFJG PROVIDER:Tanisha Vazquez MD[address] [facility] [address]XCXRAFIKY START TIME: 941PROCEDURE END TIME: URGEON: Dr. [...] Available at Bedside: Inside pathology report # [id number] Size: 0.6 cm - 1 cm, (0.7cm X 0.8cm)Lymphadenopathy: NoneIndication for Mohs: Anatomic Location where lesion is prone to recur,Type of tumor, Age of patient and Ill-defined bordersLocation: Area H: (Mask Areas of the Face - Includes Central Face,Eyelids, Inner/Outer [place], Eyebrows, Nose, Chin, Lips, Ears,Periauricular Skin and Yarsanism)Preparation: Povidone-iodineLAYER AThe patient was positioned, prepped with [...] surgery on aPrimary tumor type from LEFT MORMON (location of tumor).Post-op Defect Size: 1.0 x [...] GIVEN WITH VERBAL UNDERSTANDING: YesPATIENT DISCHARGED TO SHIFT COORDINATOR/NAME: SelfFOLLOW UP: Return for wound care check in 6 weeksSee Dermatology yearly or as needed for FSE'sPRNThe documentation for this note was completed by Lis Serrano RN acting asscribe for Royce Araiza MD. November 01, 2016 10:29 AM.I agree with the Chief Complaint, ROS, and Past Histories independentlygathered by the clinical program support specialist and the remaining scribed noteaccurately describes my personal service to the patient.SIGNATURE: Royce Araiza MD PATIENT NAME: Charles AyalagDATE: November 01, 2016 : 9:10 AM PAGER/CONTACT #: [facility] 10-17-2016 [facility] Nurse Visit ([facility]) JAMIANATHANIEL RUIZ León ([id number]) 1955 MDate Time Provider Department10/17/16 7:00 AM NURSE EYAD COLLAZO [facility] During your visit today, we recorded the following information about you:Constance Elida Band Leader 10/17/2016 1:46 PM SignedPhlebotomy was performed per the order of Tanisha Vazquez M.D.., accessing leftantecubital vein.Needle removed intact. Dressing secured with tape.Patient denies discomfort, dizziness, light-headedness, or weakness and leftthe office ambulatory..Referring Provider: TANISHA VAZQUEZ [[id number]]Allergies As of Date: 10/17/2016 Noted Allergy ReactionBACTRIM (SULFAMETHOXAZOLE-TRIMETH *12/15/2014 2 - RashDate Reviewed: 08/10/2016Reviewed by: Bebe Cunningham Ma - Fully AssessedVisit Diagnoses:Abnormal LFTs [R79.89] Elevated fasting blood sugar [R73.01]Order(s):COMP METABOLIC PANEL [SQCMP] Order #: [id number] HGB A1C [SZUIJ6M] Order #: [id number] as of 10/17/2016 Sig: METOPROLOL SUCCINATE ER [...] of colonic polyps [Z86.010]Visit Notes:>> Constance Mancuso Band Leader [facility] Oct 17, 2016 1:42 PM Status: SignedPhlebotomy was performed per the order of Tanisha Vazquez M.D.., accessingleft antecubital vein.Needle removed intact. Dressing secured with tape.Patient denies discomfort, dizziness, light-headedness, or weakness andleft the office ambulatory.. Status:Closed by ELIDA POCKETS AND PIECES NECKTIE OPERATOR, ELAINE on 10/17/16 [facility] Comp Metabolic Panelon 10-17 Alanine aminotransferase (ALT) 38 U/L Normal 10-54 [facility] Comment on above: Performed By: #### C MP, HBA1C ####[facility] [place] [phone] Albumin 4.1 g/dL Normal 3.9-4.9 [facility] Comment on above: Performed By: #### C MP, HBA1C ####[facility] [address] [place] [phone] Alkaline phosphatase (ALP) 54 U/L Normal 36-108 [facility] Comment on above: Performed By: #### C MP, HBA1C ####[facility] [address] [place] [place], [place] [phone] Anion gap 20 mmol/L High 9-18 [facility] Comment on above: Performed By: #### C MP, HBA1C ####[facility] [place] [place] [phone] Aspartate aminotransferase (AST) 43 U/L High 14-40 [facility] Comment on above: Performed By: #### C MP, HBA1C ####[facility] [place] [address] [phone] Bilirubin (total) 0.3 mg/dL Normal 0.2-1.3 [facility] Comment on above: Performed By: #### C MP, HBA1C ####[facility] [place] [phone] Calcium 9.5 mg/dL Normal 8.5-10.2 [facility] Comment on above: Performed By: #### C MP, HBA1C ####[facility] [place] [phone] Chloride 101 mmol/L Normal 97-105 [facility] Comment on above: Performed By: #### C MP, HBA1C ####[place] [address] [address] [phone] CO2 23 mmol/L Normal 22-30 [facility] Comment on above: Performed By: #### C MP, HBA1C ####[place] [address] [address] [place] [phone] Creatinine 1.02 mg/dL Normal 0.73-1.22 [facility] Comment on above: Performed By: #### C MP, HBA1C ####[place] [address] [place] [place] [phone] eGFR (non-black) mL/min/{1.73_m2} Normal [facility] Comment on above: Performed By: #### C MP, HBA1C ####[place] [address] [address] [place] [phone] Result Comment: eGFR (Estimated GFR) Units of [...] Glucose mass conc 90 mg/dL Normal 74-99 [facility] Comment on above: Result Comment: The [place] Diabetes Association (ADA) provides guidance for cutoff [...] Standards of Medical Care in Diabetes 2016, [place] Diabetes Association. Diabetes Care. 2016.39(Suppl 1). Performed By: #### C MP, HBA1C ####[address] [phone] Potassium molar conc 4.6 mmol/L Normal 3.7-5.1 [facility] Comment on above: Performed By: #### C MP, HBA1C ####[address] [phone] Protein 7.1 g/dL Normal 6.3-8.0 [facility] Comment on above: Performed By: #### C MP, HBA1C ####[address] [phone] Sodium 144 mmol/L Normal 136-144 [facility] Comment on above: Performed By: #### C MP, HBA1C ####[address] [phone] Urea nitrogen 18 mg/dL Normal 9-24 [facility] Comment on above: Performed By: #### C MP, HBA1C ####[address] [phone] Hemoglobin A1con 10-17-2016 Glucose mass conc 120 mg/dL Normal [facility] Comment on above: Result Comment: eAG: (Estimated average glucose) is a calculated value from HgbA1c and is warehouse representative of the average blood glucose level in the last 2-3 month period. Performed By: #### C MP, HBA1C ####[facility] [place], [place] [phone] Hemoglobin A1c/Hemoglobin.total mass fraction (Bld) 5.8 % High 4.3-5.6 [facility] Comment on above: Result Comment: [facility] Diabetes Association guidelines indicate that patients with HgbA1c in the range 5.7-6.4% are at increased risk for development of diabetes, and intervention by lifestyle modification may be beneficial. HgbA1c greater or equal to 6.5% is considered diagnostic of diabetes. Performed By: #### C MP, HBA1C ####[facility] [place], [place] [phone] Vital Signs Date Time Vital Sign Value Performing Clinician Facility 07-05-2023 08:58-0400 Body weight 94.85 kg II Rusty Delgado Work Phone: [facility] 07-05-2023 08:58-0400 Diastolic blood pressure 71 mm[Hg] II Rusty Delgado Work Phone: [facility] 07-05-2023 08:58-0400 Heart rate 88 /min II Rusty Delgado Work Phone: [facility] 07-05-2023 08:58-0400 Systolic blood pressure 121 mm[Hg] II Rusty Delgado Work Phone: [facility] 06-13-2023 17:15-0500 Diastolic blood pressure 62 mm[Hg] II Rusty Delgado Work Phone: [facility] 06-13-2023 17:15-0500 Heart rate 72 /min II Rusty Delgado Work Phone: [facility] 06-13-2023 17:15-0500 Respiratory rate 20 /min II Rusty Delgado Work Phone: [facility] 06-13-2023 17:15-0500 SaO2% (BldA) [Mass fraction] 94 % II Rusty Delgado Work Phone: [facility] 06-13-2023 17:15-0500 Systolic blood pressure 101 mm[Hg] II Rusty Delgado Work Phone: [facility] 06-13-2023 13:38-0500 Body height 175.26 cm II Rusty Delgado Work Phone: [facility] 06-13-2023 13:38-0500 Body mass index (BMI) [Ratio] 31.1 kg/m2 II Rusty Delgado Work Phone: [facility] 06-13-2023 13:38-0500 Body weight 95.7 kg II Rusty Delgado Work Phone: [facility] 06-13-2023 12:05-0500 Body temperature 98.2 [degF] II Rusty Delgado Work Phone: [facility] 05-31-2023 15:07-0500 Body height 175.3 cm Janneth Itzkowitz DO Work Phone: [facility] 05-31-2023 15:07-0500 Body mass index (BMI) [Ratio] 32.05 kg/m2 Janneth Itzkowitz DO Work Phone: [facility] 05-31-2023 15:07-0500 Body weight 98.43 kg Janneth Itzkowitz DO Work Phone: [facility] 05-31-2023 15:07-0500 Diastolic blood pressure 72 mm[Hg] Janneth Itzkowitz DO Work Phone: [facility] 05-31-2023 15:07-0500 Systolic blood pressure 120 mm[Hg] Janneth Itzkowitz DO Work Phone: [facility] 05-23-2023 06:44-0500 Body height 175.26 cm II Rusty Delgado Work Phone: [facility] 05-23-2023 06:44-0500 Body weight 99.79 kg II Rusty Delgado Work Phone: [facility] 05-18-2023 14:04-0500 Body height 175.3 cm Janneth Itzkowitz DO Work Phone: [facility] 05-18-2023 14:04-0500 Body mass index (BMI) [Ratio] 32.78 kg/m2 Janneth Itzkowitz DO Work Phone: [facility] 05-18-2023 14:04-0500 Body weight 100.7 kg Janneth Itzkowitz DO Work Phone: [facility] 05-18-2023 14:04-0500 Diastolic blood pressure 74 mm[Hg] Janneth Itzkowitz DO Work Phone: [facility] 05-18-2023 14:04-0500 Systolic blood pressure 120 mm[Hg] Janneth Itzkowitz DO Work Phone: [facility] 04-12-2023 11:00-0500 Body height 175.26 cm Lorna Ortega Other [facility] 04-12-2023 11:00-0500 Body mass index (BMI) [Ratio] 33.22 kg/m2 Lorna Raymonovanner Other [facility] Other 04-12-2023 11:00-0500 Body weight 102.06 kg Lorna Scnaya Other [facility] Other 04-12-2023 11:00-0500 Body weight 102.05 kg II Rusty Delgado Work Phone: [facility] 04-12-2023 11:00-0500 Diastolic blood pressure 67 mm[Hg] Lorna Scovanner Other [facility] 04-12-2023 11:00-0500 Systolic blood pressure 135 mm[Hg] Lorna Scovanner Other [facility] 11-10-2022 11:00-0400 Body weight 99.79 kg Lorna Ortega Other [facility] Other 11-10-2022 11:00-0400 Diastolic blood pressure 74 mm[Hg] Lorna Ortega Other [facility] Other 11-10-2022 11:00-0400 Systolic blood pressure 127 mm[Hg] Lorna Ortega Other [facility] Other 09-21-2022 08:49-0400 Diastolic blood pressure 78 mm[Hg] II Rusty Delgado Work Phone: [facility] 09-21-2022 08:49-0400 Heart rate 50 /min II Rusty Delgado Work Phone: [facility] 09-21-2022 08:49-0400 SaO2% (BldA) [Mass fraction] 99 % II Rusty Delgado Work Phone: [facility] 09-21-2022 08:49-0400 Systolic blood pressure 125 mm[Hg] II Rusty Delgado Work Phone: [facility] 09-21-2022 07:36-0400 Body height 175.26 cm II Rusty Delgado Work Phone: [facility] 09-21-2022 07:36-0400 Body temperature 98.5 [degF] II Rusty Delgado Work Phone: [facility] 09-21-2022 07:36-0400 Body weight 95.25 kg II Rusty Delgado Work Phone: [facility] 09-21-2022 07:36-0400 Respiratory rate 16 /min II Rusty Delgado Work Phone: [facility] Encounters Encounter Date Encounter Type Care Provider Facility Start: 11-27-2023 End: 11-27-2023 [facility]RENA JOHNSON [facility] Start: 11-15-2023 End: 11-15-2023 ambulatory RUSTY DELGADO Not Available Start: 11-14-2023 End: 11-14-2023 ambulatory LANRE GUERIN [facility] Start: 11-08-2023 End: 11-08-2023 ambulatory ROSALINO LAMAS Not Available Start: 10-13-2023 ambulatory [facility] Start: 10-13-2023 End: 10-13-2023 ambulatory IRENA JOHNSON [facility] Start: 10-09-2023 End: 10-09-2023 ambulatory JANNETH VILLEGAS Not Available Start: 10-03-2023 End: 10-03-2023 ambulatory II Rusty Delgado Work Phone: [facility] Work Phone: Start: 10-03-2023 End: 10-03-2023 Departed Referred II Rusty Delgado Work Phone: [facility] Start: 10-02-2023 End: 10-02-2023 ambulatory LYNDSEY PATEL Not Available Start: 09-25-2023 End: 09-25-2023 ambulatory [facility] Start: 09-15-2023 End: 09-15-2023 ambulatory WARD SIMPSONCT Not Available Start: 09-05-2023 End: 09-05-2023 ambulatory WARD BENEDICT Not Available Start: 08-30-2023 End: 08-30-2023 ambulatory WARD BENEDICT Not Available Start: 08-22-2023 End: 08-22-2023 ambulatory [facility] Start: 08-07-2023 End: 08-07-2023 ambulatory [facility] Start: 07-18-2023 End: 07-18-2023 ambulatory FABY ECHEVARRIA Not Available Start: 07-12-2023 End: 07-13-2023 ambulatory Janneth Villegas Facility:[facility] Start: 07-12-2023 End: 07-12-2023 Patient encounter procedure Jourdan ARRIAZA [facility] Start: 07-05-2023 End: 07-05-2023 ambulatory II Rusty Delgado Work Phone: [facility] Work Phone: Start: 07-05-2023 End: 07-05-2023 Patient encounter procedure II Rusty Delgado Work Phone: [facility] G[facility] Work Phone: Start: 06-29-2023 End: 06-29-2023 ambulatory JANNETH H ITZKOWITZ Not Available Start: 06-23-2023 ambulatory Janneth Itzkowitz Facil ity:[facility] Start: 06-22-2023 End: 06-22-2023 ambulatory JANNETH H ITZKOWITZ Not Available Start: 06-13-2023 End: 06-13-2023 Admission to same day surgery center II Rusty Delgado Work Phone: [facility] [place] Start: 06-13-2023 End: 06-13-2023 ambulatory Janneth Itzkowitz Facility:[facility] Start: 06-02-2023 End: 06-02-2023 Patient encounter procedure II Rusty Delgado Work Phone: [facility] Work Phone: Start: 06-02-2023 End: 06-02-2023 ambulatory II Rusty Delgado Work Phone: [facility] Work Phone: Start: 05-31-2023 End: 05-31-2023 Office outpatient visit 25 minutes Janneth H Itzkowitz DO Work Phone: [facility] Comment on above: Fissure in ano (Prim chinmay Dx) Start: 05-31-2023 End: 05-31-2023 ambulatory JANNETH H ITZKOWITZ Not Available Start: 05-23-2023 End: 05-23-2023 Admission to same day surgery center II Rusty Delgado Work Phone: [facility] Work Phone: Start: 05-23-2023 End: 05-23-2023 ambulatory Minh Griffith Facility:[facility] Start: 05-18-2023 End: 05-18-2023 Office outpatient new 45 minutes Janneth Rouse Long DO Work Phone: [facility] Comment on above: Fissure in ano Start: 05-18-2023 End: 05-18-2023 ambulatory JANNETH H ITZLILLIAMWITZ Not Available Start: 05-11-2023 End: 05-11-2023 ambulatory Lorna Ortega Other [employer] Other Start: 05-11-2023 Office outpatient visit 15 minutes Lorna Ortega [facility] Start: 04-28-2023 End: 04-28-2023 ambulatory Lorna Ortega Other [employer] Other Start: 04-28-2023 Telephone encounter Lorna Coates [facility] Start: 04-27-2023 End: 04-27-2023 ambulatory Lorna Ortega Other [employer] Other Start: 04-27-2023 Telephone encounter Lorna Coates [facility] Start: 04-26-2023 End: 04-26-2023 Patient encounter procedure II Rusty Delgado Work Phone: [facility] [place] Work Phone: Start: 04-26-2023 End: 04-26-2023 ambulatory Rusty Delgado Facility:[facility] Start: 04-13-2023 End: 04-13-2023 ambulatory Lorna Ortega Other [employer] Other Start: 04-13-2023 Telephone encounter Lorna Coates [facility] Start: 04-12-2023 Office outpatient visit 25 minutes Lorna Ortega [facility] Start: 04-12-2023 Telephone encounter Lorna Coates [facility] Start: 04-12-2023 End: 04-12-2023 Patient encounter procedure II Rusty Delgado Work Phone: [facility] [place] Work Phone: Start: 04-12-2023 End: 04-12-2023 ambulatory II Rusty Delgado Work Phone: [employer] Other Start: 04-12-2023 End: 04-12-2023 Patient encounter procedure II Rusty Delgado Work Phone: [facility] G[facility] Work Phone: Start: 04-03-2023 End: 04-03-2023 ambulatory Lorna Ortega Other [employer] Other Start: 04-03-2023 Telephone encounter Lorna Coates [facility] Start: 03-30-2023 End: 03-30-2023 ambulatory RUSTY DELGADO Not Available Start: 03-24-2023 End: 03-24-2023 ambulatory RUSTY DELGADO Not Available Start: 03-24-2023 End: 03-24-2023 ambulatory RUSTY DELGADO Not Available Start: 11-18-2022 End: 11-18-2022 ambulatory Lorna Otrega Other [employer] Other Start: 11-18-2022 Telephone encounter Lorna Coates [facility] Start: 11-15-2022 End: 11-15-2022 Patient encounter procedure II Rusty Delgado Work Phone: [facility] [place] Work Phone: Start: 11-15-2022 End: 11-15-2022 ambulatory II Rusty Delgado Work Phone: [facility] Work Phone: Start: 11-10-2022 End: 11-10-2022 ambulatory Lorna Ortega Other [facility] Other Start: 11-10-2022 Office outpatient visit 15 minutes Lorna Ortega [facility] Gastro[facility] Start: 11-03-2022 End: 11-03-2022 Patient encounter procedure II Rusty Delgado Work Phone: [facility] Work Phone: Start: 11-03-2022 End: 11-03-2022 ambulatory Lex Carroll Facility:[facility] Start: 10-26-2022 End: 10-26-2022 Departed Referred II Rusty Delgado Work Phone: [facility] Work Phone: Start: 10-26-2022 End: 10-26-2022 Patient encounter procedure II Rusty Delgado Work Phone: [facility] Work Phone: Start: 10-26-2022 End: 10-26-2022 ambulatory II Rusty Delgado Work Phone: [facility] Work Phone: Start: 09-21-2022 End: 09-21-2022 Admission to same day surgery center II Rusty Delgado Work Phone: [facility] Work Phone: Start: 09-21-2022 End: 09-21-2022 ambulatory II Rusty Delgado Work Phone: [facility] Work Phone: Start: 02-13-2017 End: 02-13-2017 Ambulatory TANISHA [facility] Start: 01-04-2017 End: 01-04-2017 Ambulatory TANISHA VAZQUEZ [facility] Start: 12-10-2016 End: 12-10-2016 Ambulatory COY BLANCHARD [facility] Start: 11-01-2016 End: 11-02-2016 Ambulatory ROYCE ARAIZA [facility] Start: 10-17-2016 End: 10-17-2016 Ambulatory TANISHA VAZQUEZ [facility] Procedures Date Procedure Procedure Detail Performing Clinician [...] Work Phone: Start: 09-21-2022 Esophagogastroduodenoscopy II Rusty thacker Work Phone: Start: 05-12-2022 Colonoscopy Janneth Villegas DO Work Phone: Plan of Treatment Date Care Activity Detail Author Start: 05-12-2032 Screening for malignant neoplasm of colon [facility] Start: 05-26-2024 Urine screening for protein Diabetes: Urine Protein Screening [facility] Start: 05-24-2024 Glaucoma screening Diabetes: Retinopathy Screening [facility] Start: 08-24-2023 Hemoglobin A1c measurement Diabetes: Hemoglobin A1C [facility] Start: 06-13-2023 [facility] Start: 06-13-2023 [facility] Start: 06-13-2023 End: 06-13-2023 Patient encounter procedure 06/13/2023 1:30 PM EST Procedure Visit [facility] Janneth Villegas DO [address] [facility] [address] [place] [address] [facility] Start: 06-09-2023 End: 06-09-2023 Patient encounter procedure 06/09/2023 10:30 AM EST Office Visit [facility] [address] [facility] [address] [place] [id number] Janneth Villegas, DO [address] [facility] [address] [place] [address] [facility] Start: 05-26-2023 Medicare Annual Wellness (AWV) Medicare Annual Wellness (AWV) [facility] Start: 05-23-2023 [facility] Start: 02-23-2023 Hemoglobin A1c measurement Diabetes: Hemoglobin A1C [facility] Start: 11-03-2022 [facility] Start: 11-03-2022 Ultrasound elastography of liver [facility] (Not Applicable) [facility] Start: 10-26-2022 Ultrasound elastography of liver [facility] (Not Applicable) [facility] Start: 10-26-2022 [facility] Start: 09-21-2022 Hepatitis B core antibody measurement [facility] Start: 09-21-2022 End: 09-21-2022 [facility] Start: 1972 Urine screening for protein Diabetes: Urine Protein Screening [facility] Start: 08-03-1961 Pneumococcal Vaccine: 65+ Years (1 - PCV) Pneumococcal Vaccine: 65+ Years (1 - PCV) [facility] Start: 1955 Medicare Annual Wellness (AWV) Medicare Annual Wellness (AWV) [facility] Start: 1955 Screening for malignant neoplasm of colon [facility] Actin smooth muscle IgG Ab [Units/volume] in Serum [facility] Alpha 1 antitrypsin [Mass/volume] in Serum or Plasma [facility] Alpha 1 antitrypsin phenotyping [Identifier] in Serum or Plasma by Immunofixation [facility] Cefuroxime free [Mass/volume] in Serum or Plasma [facility] Ceruloplasmin [Mass/volume] in Serum or Plasma [facility] Hepatitis B virus galindo rface Ab [Presence] in Serum [facility] Hepatitis B virus galindo rface Ag [Presence] in Serum or Plasma by Immunoassay [facility] Hepatitis C virus Ig G Ab [Presence] in Serum or Plasma by Immunoassay [facility] Mitochondria M2 IgG Ab [Units/volume] in Serum [facility] Patient referral [facility] Work Phone: Immunizations Immunization Date Immunization Notes Care Provider [facility] 01-24-2023 influenza virus vaccine, unspecified formulation [employer] [facility] 04-30-2022 zoster vaccine recombinant Janneth Itzkowitz DO Work Phone: [facility] 03-22-2022 tetanus toxoid, reduced diphtheria toxoid, and acellular pertussis vaccine, adsorbed Janneth Itzkowitz DO Work Phone: [facility] 02-01-2022 influenza virus vaccine, unspecified formulation [employer] [facility] 02-01-2022 influenza, high dose seasonal, preservative-free Janneth Itzkowitz DO Work Phone: [facility] 02-17-2021 influenza virus vaccine, unspecified formulation [employer] [facility] 02-17-2021 influenza, high dose seasonal, preservative-free Janneth Itzkowitz DO Work Phone: [facility] 02-13-2017 influenza virus vaccine, unspecified formulation [employer] [facility] 02-13-2017 influenza, injectabl e, quadrivalent, contains preservative Janneth Itzkowitz DO Work Phone: [facility] 02-01-2016 influenza virus vaccine, unspecified formulation Jourdan Shoop [facility] 02-01-2016 influenza, seasonal, injectable Janneth Itzkowitz DO Work Phone: [facility] 03-24-2015 zoster vaccine, live Janneth Itzkowitz DO Work Phone: [facility] 02-10-2015 influenza virus vaccine, unspecified formulation Jourdan Shoop [facility] 02-10-2015 influenza, seasonal, injectable Janneth Itzkowitz DO Work Phone: [facility] 01-14-2014 influenza virus vaccine, unspecified formulation Jourdan ARRIAZA [facility] 01-14-2014 influenza, seasonal, injectable Janneth Itzkowitz DO Work Phone: [facility] 01-23-2013 influenza virus vaccine, unspecified formulation Janneth Itzkowitz DO Work Phone: [facility] Payers Date Payer Category Payer Self-pay 2022 Medicare [employer] MEDICARE A DVANTAGE A[employer]NA MEDICARE REPLACEMENT [id number] 2022-Present [address] [place] [address] [id number] 2002 Private Health Insurance [id number] 1953 Unknown [id number] 2.16.840.1.687628.3.579.2. 727 1953 Unknown [id number] 2..840.1.131321.3.579.2. 1258 1953 Unknown [id number] 2..840.1.513327.3.579.2. 1258 1953 Unknown [id number] 2.16.840.1.665982.3.579.2. 1258 1953 Unknown [id number] 2.16.840.1.506000.3.579.2. 1258 1953 Unknown [id number] 2.16.840.1.109246.3.579.2. 1258 1953 Unknown [id number] 2.16.840.1.754640.3.579.2. 1259 1953 Unknown [id number] 2.16.840.1.346011.3.579.2. 1258 1953 Unknown [id number] 2.16.840.1.669961.3.579.2. 1258 1953 Unknown [id number] 2.16.840.1.285370.3.579.2. 1258 1953 Unknown [id number] 2.16.840.1.096474.3.579.2. 1258 1953 Unknown [id number] 2.16.840.1.113448.3.579.2. 1258 1953 Unknown [id number] 2.16.840.1.016887.3.579.2. 1258 1953 Unknown [id number] 2..840.1.609549.3.579.2. 1258 1953 Unknown [id number] 2.16.840.1.803432.3.579.2. 1258 1953 Unknown [id number] 2.16.840.1.379757.3.579.2. 1259 Unknown [id number] 2.16.840.1.738873.3.579.2. 531 Unknown [id number] 2.16.840.1.493873.3.579.2. 531 Unknown [id number] 2.16.840.1.099916.3.579.2. 531 Unknown [id number] 2.16.840.1.584270.3.579.2. 531 Unknown [id number] 2.16.840.1.075957.3.579.2. 531 Unknown [id number] 2.16.840.1.531058.3.579.2. 531 Unknown [id number] 2.16.840.1.167196.3.579.2. 531 Unknown [id number] 2.16.840.1.148230.3.579.2. 531 Unknown [id number] 2.16.840.1.606399.3.579.2. 531 Social History Date Type Detail Facility Start: 09-21-2022 End: 06-13-2023 Tobacco smoking status NHIS Ex-smoker (finding) [facility] Start: 1955 Sex Assigned At Male [facility] Start: 05-18-2023 End: 05-31-2023 Sex Assigned At [facility] End: 04-17-1989 History of tobacco use Current smoker [facility] End: 04-17-1989 History of tobacco use Cigarette Smoker [facility] Start: 11-17-2022 Tobacco use and exposure Smokeless tobacco non-user [facility] Start: 05-18-2023 End: 05-31-2023 History of Social function [facility] Start: 1955 Sex Assigned At Not on file N [facility] Tobacco smoking status No Smokin g Status Entered [facility] Goals Date Patient Goal Desired Activity /State Clinical Notes 09-21-2022 to 11-27-2023 Janneth Villegas, DO - 05/31/2023 3:15 PM ESTFredbarb Villegas, DO - 05/18/2023 2:00 PM EST Note Date & Type Note Facility 11-27-2023 Note Patient: Charles hernandez Procedure Summary Date: 11/27/23 Room / Location: [facility] Anesthesia Start: 1040 Anesthesia Stop: 1107 Procedure: EGD Diagnosis: Alcoholic cirrhosis of liver with ascites (CMS/HCC) Scheduled Providers: Irena Johnson MD; Jl Kent MD; VALDEMAR Heath Responsible Provider: Jl Kent MD Anesthesia Type: MAC ASA Status: 3 Anesthesia Type: MAC Vitals Value Taken Time BP 131/93 11/27/23 1105 Temp 36 ???C (96.8 ???F) 11/27/23 1105 Pulse 77 11/27/23 1105 Resp 10 11/27/23 1105 SpO2 92 % 11/27/23 1105 Anesthesia Post Evaluation Patient location during evaluation: PACU Patient participation: complete - patient participated Level of consciousness: awake Pain score: 1 Pain management: adequate Airway patency: patent Cardiovascular status: acceptable Respiratory status: acceptable Patient is hemodynamically stable and is able to be discharged from PACU per anesthesia protocol. No notable events documented. [facility] 11-27-2023 Note Patient: Charles hernandez Procedure Summary Date: 11/27/23 Room / Location: [facility] Anesthesia Start: 1041 Anesthesia Stop: Procedure: EGD Diagnosis: Alcoholic cirrhosis of liver with ascites (CMS/HCC) Scheduled Providers: Irena Johnson MD; Jl Kent MD; VALDEMAR Heath Responsible Provider: Jl Kent MD Anesthesia Type: MAC ASA Status: 3 [facility]esthesia Post [facility] Patient Monitor: direct observation Transport: uneventful Patient condition is: stable [facility] 11-27-2023 Note Patient: Charles hernandez Procedure Information Date/Time: 11/27/23 1130 Scheduled providers: Irena Johnson MD; Jl Kent MD; VALDEMAR Heath Procedure: EGD Location: [facility] Relevant Problems Cardio Denies chest pain/SOB (+) Benign essential hypertension (+) Essential hypertension (+) Grade II hemorrhoids (+) HTN (hypertension) (+) Ventricular premature beats Endo (+) Controlled type 2 diabetes mellitus without complication, without long-term current use of insulin (CMS/HCC) GI (+) GERD (gastroesophageal reflux disease) (+) Gastroesophageal reflux disease /Renal (+) Alcoholic cirrhosis of liver with ascites (CMS/HCC) (+) Cirrhosis (CMS/HCC) (+) Fatty liver Clinical information reviewed: Tobacco Allergies Meds Med Hx Surg Hx Fam Hx Soc Hx Physical Exam Airway Mallampati: II TM distance: >3 FB Neck ROM: full Cardiovascular - normal exam Dental - normal exam Pulmonary (+) decreased breath sounds Abdominal Anesthesia Plan ASA 3 MAC The patient is not a current smoker. Patient was not previously instructed to abstain from smoking on day of procedure. Patient did not smoke on day of procedure. intravenous induction Anesthetic plan and risks discussed with patient. Plan discussed with CAA. Additional Equipment Requests [facility] 11-08-2023 Note Refills provided [facility] 10-16-2023 Note Patient said the jason vazquez has been scheduled and is on its way. Aware they have to call [facility] every time they need a refill. Have no further questions. Will no longer follow up. Darnell Razo [facility] 10/25/23 10:27 AM [facility] 10-16-2023 Note Emma MALDONADO approved through 04/10/2024, previous approval. Pt has not been on lactulose, prescribed lactulose on the same day as Xifaxan. Based on discussion with annual income for 2 people in the household is $52,000. Should qualify for PAP. Will email provider and pt portions. Carmella Olivo, PharmD, BCACP 10/16/23 1:56 PM [facility] [phone] [facility] 10-16-2023 Note Patient assistance a pplication approved through [employer]. Approval good through 04/16/2024. Patient Case ID/Approval Number: [id number]. Notified patient and will follow up to confirm shipment/delivery is scheduled. Yamini Camarillo, [facility] 10/23/23 10:11 AM [facility] 10-16-2023 Note Have received pt. Po rtion of PAP form still waiting on prescribers portion. Re faxed the forms over to GI. Send PAP forms in once prescribers portion is signed. Darnell Razo [facility] 10/20/23 1:20 PM [facility] 10-13-2023 Note I called and discuss ed the results of his labwork with the patient. With his sodium level being slightly below baseline, we will have him repeat his labs prior to EGD tomorrow. He expressed clear understanding. If he continues to have low sodium, we may need to consider holding diuretics. [facility] 10-13-2023 Note Attestation signed by Irena Johnson MD at 10/13/2023 12:51 PM I personally saw and examined the patient on the same date of service as fellow. I discussed the findings and therapeutic plan with the fellow. I agree with the documentation, except for any edits/updates below. Teaching Physician's Revisions: Decompensated cirrhosis in setting of alcohol use disorder His course has been complicated by ascites and today he appears to have symptoms consistent with HE He also has a hepatic lesion in the hepatic dome, therefore, will order dynamic liver MRI for further delineation Patient will need a repeat paracentesis. Will wait for repeat labs to determine if diuretics can be uptitrated Counseled on limiting dietary sodium to less an 2 grams per day Counseled don protein intake EGD ordered for variceal screening Counseled on importance of abstaining from alcohol. Patient declined relapse prevention counseling as wants to quit himself Will start lactulose and titrate to 2-3 BM per day Updated MELD 3.0 labs every 3 months Discontinue lisinopril in setting of hypotension and will consider starting Midodrine RTC in 4-6 weeks I spent [70] minutes of total time on the day of the visit. This time was spent preparing for the visit, obtaining and reviewing any outside history/data, taking a history, performing an exam/evaluation, counseling and educating the patient/family about the diagnosis and plan, performing medical decision making, referring to and communicating with other health care referrals, independently interpreting results and documenting in the EMR, and coordinating care. Please see the additional documentation in this note for specific details. [facility] Gastroenterology Follow-up visit CHIEF COMPLAINT Chief Complaint Patient presents with Cirrhosis Ascites HISTORY OF PRESENT ILLNESS: Charles Blanodn is a 68 y.o. male with hx [...] of dyspepsia, GERD,Cirrhosis, underwent GES was unremarkable. Interval update: Patient underwent serologic workup for causes of potential cirrhosis with negative serologic workup including normal ferritin, alpha-1 antitrypsin, ceruloplasmin, mildly positive smooth muscle antibody, negative antimitochondrial antibody, and negative hepatitis serology. He underwent a CT abdomen pelvis with a arterial enhancing 2 cm lesion in the hepatic dome concerning for possible HCC. Additionally, he was found to have large intra-abdominal ascites and underwent paracentesis with removal of 3.6 L with his ascites fluid demonstrating atypical cells. His AFP was within normal limits at that time. Regarding his ascites, he is currently on Aldactone 100 mg and Lasix 40 mg daily. Patient reports that he underwent paracentesis on 10/02 and reports that he feels as though his fluid immediately re-accumulated. He continues to take lasix 40mg and aldactone 100mg daily. His reports that he is in a brain fog and confusion on a regular basis. Notably he is not on lactulose. His reports that a few years ago he was told he had fatty liver disease. He currently consumes daily alcoholic beverages with approximately one shot per day but previously consumed 5-6 drinks daily for 35 years. He reports that he puts a lot of salt in his food as well and has not been restricting salt intake. His reports that his food intake is very minimal at this time. She reports that he has lost 40 pounds in the last 6 months. 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 [facility] 09-14-[address] ordered to rule o ut chronic mesenteric ischemia [facility] 08-07-2023 Note Attestation signed by Arias Jesus MD at 08/07/2023 2:45 PM I personally saw the patient with the fellow, I performed/participated in the critical/david portions of the service, I was directly involved in the management and treatment plan of the patient. I discussed the case management with the fellow and agree with the findings and plan as documented by the fellow. [facility] Gastroenterology New Patient Visit - History & [...] % gel, Apply topically., Disp: , Rfl: oueceaenx-ekqfde-euulwn-petrol 5-0.25-14.4-15 % cream, APPLY TO AFFECTED AREA [...] Rfl: zolpidem (A (more content not included)... [facility] 05-31-2023 History of Present illness Narrative Images [...] reflux disease) History of colon polyps Hypertension ([facility]) Social History Tobacco Use Smoking status: Former [...] has been scheduled. documented in this encounter [facility] 05-18-2023 History of Present illness Narrative Images from the original note were not included. Charles Blandon 1955 Charles Blandon is a 67 y.o. male presents with chief complaint of painful hemorrhoid HPI: HPI Huber states he has a hemorrhoid for the last 5-6 weeks. He was seen by Dr. Carroll's HAND KNITTER who referred him to our office. Huber [...] reflux disease) History of colon polyps Hypertension ([facility]/HCC) Social History Tobacco Use Smoking status: Former [...] weeks for recheck documented in this encounter [facility] 05-11-2023 Evaluation note Encounter Date Diagnosis Assessment Notes Apr, Nausea (ICD-10 - R11.0) Apr, Cirrhosis of liver (ICD-10 - K74.60) Apr, Early satiety (ICD-10 - R68.81) [facility] Other 12-28-2023 Evaluation note* Encounter Date Diagnosis Assessment Notes Treatment Notes Treatment Clinical Notes Mar, Lower abdominal pain (ICD-10 - R10.30) [facility] Other 12-27-2023 Evaluation note* Encounter Date Diagnosis [...] - R68.81) Mar, Bloating (ICD-10 - R14.0) [facility] Other 07-27-2023 Evaluation note* Encounter Date Diagnosis [...] a time. 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- Primary Anal fissure [facility]* Diagnosis Onset Date Resolution Status Cirrhosis acute Dyspepsia and disorder of function of stomach acute Emesis acute Esophageal dysmotility acute [facility] Work Phone: History and physical note Author Lex Carroll [facility] September 21, 2022 8:04am Note Date/Time September 21, 2022 8:04a m [facility] [address] [place] [address] Gastroenterology H&P Signed Patient: Charles Blandon MR#: [id number] : 1955 Acct:[id number] Age/Sex: 67 / M Adm Date: 3 Loc: Room: Type: [facility] Attending Dr: Lex Carroll MD Copies to: [...] signed by Lex Carroll MD> 09/21/22 0804 [facility] Work Phone: History general Narrative - Reported* Type Description Date Medical History hypertension Medical History GERD Surgical History gallbladder Surgical History elbow surgery Surgical History mesh placement [facility] Other Hospital Discharge instructions Additional Instructions DISCHARGE [...] problems. -Follow up with PCP. -Office number [phone].[facility] Work Phone: Hospital Discharge instructions No data available for this section [facility] Progress note No data available for this section [facility] Summary Purpose Family History No Family History [...] of function of stomach Emesis Esophageal dysmotility Chief Complaint Unknown Additional Source Comments (unrecognized sect ion and content) No Status Records FoundNo Status Records FoundNo Status Records FoundNo Status Records FoundNo Status Records Found INFORMATION SOURCE (unrecogn ized section and content) DATE CREATED AUTHOR 10/10/2017 [facility] DATE CREATED AUTHOR AUTHOR'S ORGANIZ ATION 07/14/2023 Kirill Redman [facility] DATE CREATED AUTHOR AUTHOR'S ORGANIZ ATION 10/06/2023 [facility] DATE CREATED AUTHOR AUTHOR'S ORGANIZ ATION 11/17/2023 [facility] EPIC DATE CREATED AUTHOR AUTHOR'S ORGANIZ ATION 12/03/2023 [facility] Care Teams (unrecognized sec tion and content) [...] Active Lorna Ortega APRN Attending Provider Active Paver Relationship Specialty Start Date End Date Rusty Delgado MD [address] [facility] [address] [place] [address] PCP - Aet 04/17/22 Rusty Delgado MD [address] [facility] [address] [place] [address] PCP - General Internal Medicine 11/23/22 Paver Relationship Specialty Start Date End Date Rusty Delgado MD [address] [facility] [address] [place] [address] PCP - [employer] 04/17/22 Rusty Delgado MD [address] [place] [address] [place] [address] PCP - General Internal Medicine 11/23/22 Team [...] July 05, 2023 End: July 05, 2023 Team Status: Inactive Member Role Status Rosa Delgado II MD Primary Care Provider Active Start: October 03, 2023 End: October 03, 2023 Ward Stern MD Attending Provider Active Start: October 03, 2023 End: October 03, 2023 REASON FOR VISIT (unrecogniz ed section and content) Reason Comments painful hemorrhoid Specialty Diagnoses / Procedures Referred By Contac t Referred To Contact General Surgery Diagnoses Unspecified hemorrhoids Procedures [place] OFFICE/OUTPATIENT [facility] 60 MINUTES Lorna Ortega MD [address] [facility] [address] [place] [address] [place] [address] [facility] [address] [place] [address] Referral ID Status Reason Start Date Expiration Date V isits Requested Visits Authorized [id number] Closed Specialty Services Required 05/12/2023 11/08/2023 1 [...] BE BASED ON THE PRIMARY CLINICAL RECORDS. [employer] provides no warranty or guarantee of the accuracy or completeness of information in this document.
[2023-12-07 12:30] VITALS: BP 96/77; PULSE 48; O2SAT 99; BMI 28.1
--- NOTE | 2023-12-07 13:53 | SUR.PREOP ---
12/04/23 spoke with pt Fabiana to schedule appt date time, and prep .
--- NOTE | 2023-12-07 14:00 | SUR.PREOP ---
1245 Pt states that over the past week he has become progressively dyspneic. Pt and state that he has not had any chest work up for the SOB or have seen Dr Delgado for this. I spoke with Dr Stern regarding pt heart rate and SOB and lack of lung sounds when auscultated. He would like us to speak with Dr Delgado regarding these matters . [address] Delgado regarding pt symptoms and strong concerns of doing paracentesis when lung status is fairly compromised. Dr Delgado would like pt to be evaluated in ER for bradycardia and potential right pleural effusion. Did discuss pt possibly needing right thoracentesis with him and could perform as an outpatient but Dr Delgado would still like for pt to be stabilized first prior to thoracentesis. did become agitated with this recommendation and voiced her displeasure with getting eval in ER. Stated that its 300 $ blown for nothing . I expressed my concerns with pt status and I believe this is a flores decision so that ER can work him up and eval the chest situation.
--- NOTE | 2023-12-07 14:14 | SUR.PREOP ---
6465 Pt transferred to ER by wheelchair and report given to Keesha. LEO
== END ==
LOC: US 11:57
PROVIDERS: PCP Internal Medicine
DX: K70.31 Alcoholic cirrhosis of liver with ascites (principal); Z53.8 Procedure and treatment not carried out for other reasons
CPT/HCPCS: 49083

== ENCOUNTER 2023-12-07 13:30 | Observation (INO) | payer MEDICARE, SELFPAY ==
[2023-12-07] VITALS (28 sets, daily range): BP systolic 99–129; BP diastolic 71–87; PULSE 44–53; TEMP 36.5–36.9; O2SAT 86–100; BMI 28.1; BMI 29.4
--- NOTE | 2023-12-07 13:34 | ECG_ITS ---
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
--- NOTE | 2023-12-07 13:34 | XR_ITS ---
The [address] [address] Patient Name: LOYD BLANDON MRN: [id number] date: 1955 Sex: M Assigned Patient Location: Current Patient Location: Accession/Order Number: [id number] Exam Date: 12/07/2023 13:55 Report Date: 12/07/2023 14:21 At the request of: APRIL GEORGE Procedure: XR chest 1V EXAMINATION: XR chest 1V HISTORY: SOB COMPARISON: No relevant comparison available. FINDINGS: LUNGS: Opacification of the lower two thirds of the right hemithorax. Left lung is well-expanded and clear except for small dense nodule within mid lung favoring a granuloma.. VASCULATURE: No increased pulmonary vasculature. PLEURA: Large right pleural effusion. CARDIAC: Cannot assess size; partially obscured by the right pleural effusion. MEDIASTINUM: No visible mass or adenopathy. BONES: No fracture or visible bone lesion. OTHER: Negative. XR/XR chest 1V IMPRESSION: 1. Large right pleural effusion and likely passive collapse of right lower lobe. Electronically authenticated by: WARD FERRER Date: 12/07/2023 14:21
--- NOTE | 2023-12-07 13:38 | ED_ITS ---
HPI HPI - General Adult General Chief complaint: Shortness of Breath/Dyspnea Stated complaint: GENERAL WEAKNESS Time Seen by Provider: 12/07/23 13:32 Source: patient Mode of arrival: Wheelchair Limitations: no limitations History of Present Illness HPI narrative: 68-year-old male presents for shortness of breath. He was scheduled to have a paracentesis performed today but he complained of shortness of breath and was noted to be somewhat bradycardic so he was sent here to the emergency department. No fever or productive cough. He gets much more short of breath with exertion. He has had 2 previous paracenteses and has never had a thoracentesis. Related Data Home Medications ?Medication ?Instructions ?Recorded ?Confirmed baclofen 20 mg tablet 20 mg PO BEDTIME 10/03/23 12/07/23 calcium carbonate 600 mg-vitamin 1 tab PO DAILY 10/03/23 12/07/23 D3 5 mcg (200 unit) tablet famotidine 40 mg tablet 40 mg PO BID 10/03/23 12/07/23 furosemide 40 mg tablet 40 mg PO DAILY 10/03/23 12/07/23 lansoprazole 30 mg capsule,delayed 30 mg PO BID 10/03/23 12/07/23 release magnesium 1 tab PO DAILY 10/03/23 12/07/23 multivitamin 1 tab PO DAILY 10/03/23 12/07/23 spironolactone 100 mg tablet 100 mg PO DAILY 10/03/23 12/07/23 carvedilol 3.125 mg tablet 3.125 mg PO BID 12/07/23 12/07/23 rifaximin 550 mg tablet (Xifaxan) 550 mg PO BID 12/07/23 12/07/23 Allergies Allergy/AdvReac Type Severity Reaction Status Date / Time No Known Drug Allergies Allergy Verified 12/07/23 13:50 Opioid HPI Opioid Management Most Recent Opioid Data: No Data to Display Review of Systems ROS Narrative A ten point review of systems is negative except as noted above. 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) ?K75.81 - Nonalcoholic steatohepatitis (JARAMILLO) (ICD-10) ?K74.60 - Unspecified cirrhosis of liver (ICD-10) Diabetes ?E11.9 - Type 2 diabetes mellitus without complications (ICD-10) HTN (hypertension) ?I10 - Essential (primary) hypertension (ICD-10) GERD (gastroesophageal reflux disease) ?K21.9 - Gastro-esophageal reflux disease without esophagitis (ICD-10) Weight loss ?R63.4 - Abnormal weight loss (ICD-10) Barretts esophagus ?K22.70 - Tipton's esophagus without dysplasia (ICD-10) Pleural effusion, bilateral ?J90 - Pleural effusion, not elsewhere classified (ICD-10) Liver mass ?R16.0 - Hepatomegaly, not elsewhere classified (ICD-10) Cirrhosis of liver ?K74.60 - Unspecified cirrhosis of liver (ICD-10) Ascites ?R18.8 - Other ascites (ICD-10) Surgical History (Updated 10/23/23 @ 14:57 by Sarina Benjamin) S/P abdominal paracentesis ?Z98.890 - Other specified postprocedural states (ICD-10) Hx of cholecystectomy ?Z90.49 - Acquired absence of other specified parts of digestive tract (ICD- 10) H/O colonoscopy ?Z98.890 - Other specified postprocedural states (ICD-10) H/O esophagogastroduodenoscopy ?Z98.890 - Other specified postprocedural states (ICD-10) Exam Narrative Exam Narrative: Nurses note and vital signs reviewed and patient is not hypoxic. General: The patient appears mildly dyspneic at rest. Skin: Warm, dry, no pallor noted. There is no rash noted. Head: Normocephalic, atraumatic Eye: Normal conjunctiva, no drainage Ears, Nose, Mouth, and Throat: oral mucosa is moist. Nares patent. Cardiovascular: Regular Rate and Rhythm Respiratory: He appears dyspneic. Breath sounds are diminished on the right. He coughs when he takes in a deep breath. Back: non-tender GI: Distended Musculoskeletal: The patient has no evidence of calf tenderness, no pitting edema, symmetrical pulses noted bilaterally Neurological: Awake and alert Psychiatric: Cooperative Constitutional Vital Signs, click to edit/add: Last Vital Signs Temp 98.4 F 12/07/23 13:33 Pulse 48 L 12/07/23 13:33 Resp 20 12/07/23 13:33 BP 129/87 12/07/23 13:33 Pulse Ox 100 12/07/23 13:33 O2 Del Method Room Air 12/07/23 13:33 Course Vital Signs Vital signs: Vital Signs Temperature 98.4 F 12/07/23 13:33 Pulse Rate 48 L 12/07/23 13:33 Respiratory Rate 20 12/07/23 13:33 Blood Pressure 129/87 12/07/23 13:33 Pulse Oximetry 100 12/07/23 13:33 Oxygen Delivery Method Room Air 12/07/23 13:33 Temperature 98.4 F 12/07/23 13:33 Pulse Rate 48 L 12/07/23 13:33 Respiratory Rate 20 12/07/23 13:33 Blood Pressure 129/87 12/07/23 13:33 Pulse Oximetry 100 12/07/23 13:33 Oxygen Delivery Method Room Air 12/07/23 13:33 Medical Decision Making MDM Narrative Medical decision making narrative: The patient has a large right pleural effusion. He has never had pleural effusion or thoracentesis in the past and has had 2 paracenteses. He is being admitted. I have spoken to in consultation. Findings are discussed with the patient and his . He was noted to be somewhat bradycardic and had been started on carvedilol 5 days ago. Differential Diagnosis Differential Diagnosis: Pleural effusion, pneumonia, pneumothorax Lab Data Lab results reviewed: Yes I reviewed the patient's lab results Labs: Lab Results 12/07/23 Range/Units 13:39 WBC 4.9 (4.0-11.0) 10^3/uL RBC 3.93 L (4.70-6.10) 10^6/uL Hgb 13.2 L (14.0-18.0) g/dL Hct 39.4 L (42.0-54.0) % MCV 100.3 H (80.0-94.0) fL MCH 33.6 (25.9-34.0) pg MCHC 33.5 (29.9-35.2) g/dL RDW 15.0 (11.0-15.0) % Plt Count 154 (150-450) 10^3/uL MPV 10.5 (9.5-13.5) fL Neut % (Auto) 66.9 (43.0-75.0) % Lymph % (Auto) 17.1 L (20.5-60.0) % [place] % (Auto) 11.7 (1.7-12.0) % Eos % (Auto) 3.1 (0.9-7.0) % Baso % (Auto) 1.0 (0.2-2.0) % Neut # (Auto) 3.3 (1.4-6.5) 10^3/uL Lymph # (Auto) 0.8 L (1.2-3.8) 10^3/uL [place] # (Auto) 0.6 (0.3-0.8) 10^3/uL Eos # (Auto) 0.2 (0.0-0.7) 10^3/uL Baso # (Auto) 0.1 (0.0-0.1) 10^3/uL Abs Immat Gran (auto) 0.01 (0.00-0.03) 10^3/uL Imm/Tot Granulo (auto) 0.2 (0.0-0.5) % Sodium 136 (136-145) mmol/L Potassium 4.5 (3.5-5.1) mmol/L Chloride 101 (98-107) mmol/L Carbon Dioxide 27.1 (21.0-32.0) mmol/L Anion Gap 12.4 BUN 12.0 (7.0-18.0) mg/dL Creatinine 1.22 (0.70-1.30) mg/dL Est GFR ( Amer) >60 (>=60) Est GFR (Non-Af Amer) 59 L (>=60) BUN/Creatinine Ratio 9.8 Glucose 109 H (74-106) mg/dL Calcium 9.0 (8.5-10.1) mg/dL Total Bilirubin 2.0 H (0.2-1.0) mg/dL Direct Bilirubin 0.8 H* (0.0-0.2) mg/dL AST 53 H (15-37) U/L ALT 29 (16-63) U/L Alkaline Phosphatase 121 H (46-116) U/L Ammonia 35 H (11-32) umol/L Troponin I High Sens 5.8 (4.0-76.1) pg/mL Total Protein 6.9 (6.4-8.2) g/dL Albumin 2.5 L (3.4-5.0) g/dL Globulin 4.4 g/dL Albumin/Globulin Ratio 0.6 Amylase 39 (25-115) U/L Lipase 26.0 (16.0-77.0) U/L Imaging Data Chest x-ray: Radiologist's impression: ITS Impressions Chest X-Ray 12/07/23 13:34 IMPRESSION: 1. Large right pleural effusion and likely passive collapse of right lower lobe. Electronically authenticated by: WARD FERRER Date: 12/07/2023 14:21 ECG Data Attestation: I personally reviewed and interpreted this ECG as follows: (EKG on my interpretation shows sinus bradycardia with a rate of 48.) Discharge Plan Discharge Stand Alone Forms: Work/School Release, Portal Instructions Chief Complaint: Shortness of Breath/Dyspnea Clinical Impression: Pleural effusion, right, Sinus bradycardia Patient Disposition: Admitted As Inpatient Time of Disposition Decision: 15:16 Condition: Fair Prescriptions / Home Meds: No Action baclofen 20 mg tablet 20 mg PO BEDTIME famotidine 40 mg tablet 40 mg PO BID furosemide 40 mg tablet 40 mg PO DAILY lansoprazole 30 mg capsule,delayed release(DR/EC) 30 mg PO BID spironolactone 100 mg tablet 100 mg PO DAILY calcium carbonate-vitamin D3 600 mg-5 mcg (200 unit) tablet 1 tab PO DAILY magnesium Tablet 1 tab PO DAILY multivitamin Tablet 1 tab PO DAILY Xifaxan 550 mg tablet 550 mg PO BID carvedilol 3.125 mg tablet 3.125 mg PO BID Print Language: [place] Referrals: SANJAY ROBLEDO [Primary Care Provider] - 1 week
[2023-12-07 13:48] LABS: Basophils Absolute Auto 0.1 10^3/uL (0.0-0.1); Eosinophils Absolute Auto 0.2 10^3/uL (0.0-0.7); Eosinophils Percent Auto 3.1 % (0.9-7.0); Hematocrit 39.4 % (42.0-54.0); Hemoglobin 13.2 g/dL (14.0-18.0); Immature Granulocytes Abs Auto 0.01 10^3/uL (0.00-0.03); Immature Granulocytes Pct Auto 0.2 % (0.0-0.5); Lymphocytes Absolute Auto 0.8 10^3/uL (1.2-3.8); Lymphocytes Percent Auto 17.1 % (20.5-60.0); Mean Corpuscular HGB Conc 33.5 g/dL (29.9-35.2); Mean Corpuscular Hemoglobin 33.6 pg (25.9-34.0); Mean Corpuscular Volume 100.3 fL (80.0-94.0); Mean Platelet Volume 10.5 fL (9.5-13.5); Monocytes Absolute Auto 0.6 10^3/uL (0.3-0.8); Monocytes Percent Auto 11.7 % (1.7-12.0); Neutrophils Absolute Auto 3.3 10^3/uL (1.4-6.5); Neutrophils Percent Auto 66.9 % (43.0-75.0); Platelet Count 154 10^3/uL (150-450); Red Blood Count 3.93 10^6/uL (4.70-6.10); White Blood Count 4.9 10^3/uL (4.0-11.0)
[2023-12-07 14:00] LABS: Amylase 39 U/L (25-115)
[2023-12-07 14:01] LABS: Ammonia 35 umol/L (11-32)
[2023-12-07 14:06] LABS: Anion Gap 12.4
[2023-12-07 14:10] LABS: Alanine Aminotransferase 29 U/L (16-63); Albumin Globulin Ratio 0.6; Albumin Level 2.5 g/dL (3.4-5.0); Alkaline Phosphatase 121 U/L (46-116); Aspartate Amino Transferase 53 U/L (15-37); BUN Creatinine Ratio 9.8; Carbon Dioxide 27.1 mmol/L (21.0-32.0); Chloride 101 mmol/L (98-107); Estimated GFR (African America >60 (>=60); Estimated GFR (Non-African Ame 59 (>=60); Globulin 4.4 g/dL; Glucose 109 mg/dL (74-106); Potassium 4.5 mmol/L (3.5-5.1); Sodium 136 mmol/L (136-145); Total Protein 6.9 g/dL (6.4-8.2); Troponin I High Sensitivity 5.8 pg/mL (4.0-76.1)
[2023-12-07 14:12] LABS: Bilirubin Direct 0.8 mg/dL (0.0-0.2)
[2023-12-07 15:31] LABS: INR 1.23; Partial Thromboplastin Time 30.3 sec (22.3-36.2); Prothrombin Time 12.8 sec (9.0-11.6)
--- OUTSIDE RECORDS SUMMARY | 2023-12-07 17:53 | XMS_ITS | CCD ---
Author Organization [facility] Care Team Providers Care Strategic Business Development Name Role Phone CHEMA, TANISHA Unavailable Unavailable [...] Unavailable Rusty Delgado MD Primary Care Provider [phone] MD Minh Griffith Attending Provider [phone] DO Janneth Villegas Attending Provider JUDITH Delgado Primary Care Provider TALA Ortega Attending Provider MD Minh Griffith Attending Provider [phone] DO Janneth Villegas Attending Provider RUSTY DELGADO Primary Care Physician [phone] Janneth Villegas H Referring Unavailable Jourdan ARRIAZA [...] UnavailMinh Romero Attending Unavailabl e Rusty Delgado [facility] Unavailable ITDAPHNE, JANNETH H Attending Unavailable SCLORNA KOTHARI Referring Unavailable ITZKOBERNICETZ, JANNETH H Attending Unavailable ITZPHILOMENA, JANNETH H Attending Unavailable ITDAPHNE, JANNETH H Attending Unavailable FABY ECHEVARRIA Attending Unavailable ISAIAS, AWRD Attending Unavailable FABY ECHEVARRIA Referring Unavailable BENESYEDACTWARD [...] Translations: [SULFAMETHOXAZOLE-TR IMETHOPRIM] Drug Allergy 5 AOF [facility] Repository Medications Current Medications Medication Drug Class(es) [...] June 13, 2023 July 05, 2023 9:01am desxqyf-xfdirvfrq-zlka 333-133-5 MG per tablet (1 source) End: 05-18-2023 calcium-magnesium -zinc 333-133-5 MG per tablet Take 1 tablet by mouth in the morning and 1 tablet at noon and 1 tablet in the evening. Take with meals. 0 05/18/2023 Discontinued hydroCHLOROthiazide 25 mg / triamterene 37.5 mg oral capsule (10 sources) Potassium-spari ng Diuretic, Thiazide Diuretic Start: 06-13-2023 End: 07-05-2023 Triamterene-[place] chlorothiazid Discontinued CAP June 13, 2023 1:00am [...] in clinic, order placed and faxed to [facility] at [phone] [facility] 36 calls stating t hat patient is in need of an order for paracentesis. Order will need to be sent to [facility]. [facility] Orders Onlyon 12-01-2023 Orders Only [id number] Ambrosio Blandon 1955 M Date Provider Department Center 12/01/202389828-RVFOZGIBSON HAZEL [facility] No family history on file Normal [facility] HPon 11-27-2023 HP ----- ----- [...] PROT B12/Folate/Iron studies: No results found for: [id number] , FOLATE , IRON , TIBC , UIBC , IRONSAT , FERRITIN ASSESSMENT AND PLAN Charles Blandon is a 68 y.o. male who has a known past medical history significant for alcoholic liver cirrhosis, Recinos's esophagus and hepatic encephalopathy is scheduled today for an EGD for esophageal varices screening. Plan: Plan for EGD today for esophageal varices secondary to liver cirrhosis. Normal [facility] POCT GLUCOSE METER UNSOLICIT ED RESULTSon 11-27-2023 Glucose [Mass/Vol] 101 mg/dL Normal 70-105 [facility] Comment on above: Order Comment: Waive d Testing in the ED is performed under the ED CLIA certificate #[id number]. Result Comment: [facility] eman Performed By: #### L [id number] #### [facility] (BEAKER) [address] [place] [address] 36on 11-21-2023 36 Appeal submitted Normal [facility] Orders Onlyon 11-21-2023 Orders Only [id number] Ambrosio Blandon 1955 M Date Provider Department Center 11/21/2023 BROOKLYNN ZEPEDA MP [facility] No family history on file Normal [facility] Prep for Procedureon 024 Prep for Procedure [id number] Ambrosio Blandon 1955 M Date Provider Department Center 11/21/2023 IRENA SCHMIDT [facility] GISC [place] No family history on file Normal [facility] MR ABDOMEN W AND WO [...] signed: Adalid Montiel. 9 Invalid Interpretation Code [facility] Orders Only11-08-2023 Orders Only [id number] Ambrosio Blandon 1955 M Date Provider Department Garita 11/08/2023 [id number], BETH [facility] No family history on file Normal [facility] 11-02-2023 36 Patient's carmen joylnn to verify that Dr. Jesus will now be prescribing the Famotidine and Baclofen because the previously prescribing physician no longer will now that he is a [facility] GI patient. The preferred pharmacy is [facility] in [place]. Please advise and these orders can then be pended. Normal [facility] Orders Onlyon 11-02-2023 Orders Only [id number] Ambrosio Blandon 1955 M Date Provider Department Center 11/02/2023 [id number], [facility] GI Medical Pavi No family history on file Normal [facility] 3610-26-2023 36 I called the [...] MRI of his liver on the . [facility] Orders Onlyon 10-26-2023 Orders Only [id number] Ambrosio Blandon emma 1955 M Date Provider Department Center 10/26/202375293-QNFGRGIBSON TAYLOR MP [facility] No family history on file [facility] Telephoneon 10-26-2023 Telephone [id number] Ambrosio Blandon emma 1955 M Date Provider Department Center 10/26/202302456-FPRADGIBSON ESPOSITO [facility] No family history on file [facility] Orders Onlyon 10-24-2023 Orders Only [id number] Ambrosio Blandon emma 1955 M Date Provider Department Center 10/24/2023 [id number], MAGALIS [facility] No family history on file [facility] Orders Onlyon 10-20-2023 Orders Only [id number] Ambrosio Blandon emma 1955 M Date Provider Department Center 10/20/2023 RUFINO HORN [facility] Medical No family history on file [facility] 36on 10-18-2023 36 I called the patient [...] we can follow-up on his sodium level. [facility] 36 Patients called stating they were called [...] from you to clarify some things. Normal [facility] Orders Onlyon 10-18-2023 Orders Only [id number] Ambrosio Blandon 1955 M Date Provider Department Center 10/18/2023 EKATERINA ALMARAZ [facility] [place] No family history on file [facility] Telephoneon 10-18-2023 Telephone [id number] Ambrosio Blandon 1955 M Date Provider Department Center 10/18/202388070-FJMPZGIBSON TAYLOR MP [facility] No family history on file [facility] Orders Onlyon 10-17-2023 Orders Only [id number] Ambrosio Blandon 1955 M Date Provider Department Center 10/17/202385671-GJEEZGIBSON ESPOSITO MP [facility] No family history on file [facility] Documentationon 10-16-2023 Documentation [id number] Ambrosio Blandon 1955 M Date Provider Department Center 10/16/2023 CARMELLA NICOLE [facility] No family history on file Reason for Visit and Comments: Specialty Pharmacy Note: Xifaxan PAP [Other] Normal [facility] Prep for Procedureon 024 Prep for Procedure [id number] Ambrosio Blandon 1955 M Date Provider Department Center 10/16/2023 Vahid-IRENA JOHNSON [facility] [place] No family history on file Normal [facility] BASIC METABOLIC PANELon 09-16 Anion gap [Moles/Vol] 14 mmol/L Normal 7-20 [facility] Comment on above: Performed By: #### L [id number] #### [facility] (BEAKER) [address] [place] [address] Calcium [Mass/Vol] 9.1 mg/dL Normal 8.6-10.3 [facility] Comment on above: Performed By: #### L AB15 #### [facility] (BEAKER) [address] [place] [address] Chloride [Moles/Vol] 96 mmol/L Low 98-107 [facility] Comment on above: Performed By: #### L [id number] #### [facility] (BEAKER) [address] [place] [address] CO2 [Moles/Vol] 22 mmol/L Normal 21-31 [facility] Comment on above: Performed By: #### L [id number] #### [facility] (BEAKER) [address] [place] [address] Creatinine [Mass/Vol] 1.00 mg/dL Normal 0.70-1.30 [facility] Comment on above: Performed By: #### L [id number] #### [facility] (BEAKER) [address] [place] [address] GLOMERULAR FILTRATION RATE ML/MIN/1.73 SQ M.PREDICTED 81.0 mL/min/1.73m*2 Normal >60.0 [facility] Comment on above: Result Comment: [facility]???s estimated glomerular filtration rate (eGFR) [...] individuals. Performed By: #### L [id number] #### [facility] ([facility]) [address] [place] [address] Glucose [Mass/Vol] 108 mg/dL High 70-100 [facility] Comment on above: Performed By: #### L [id number] #### [facility] ([facility]) [address] [place] [address] Potassium [Moles/Vol] 4.8 mmol/L Normal 3.5-5.1 [facility] Comment on above: Performed By: #### L [id number] #### [facility] ([facility]) [address] [place] [address] Sodium [Moles/Vol] 127 mmol/L Low 136-145 [facility] Comment on above: Performed By: #### L [id number] #### [facility] ([facility]) [address] [place] [address] Urea nitrogen [Mass/Vol] 13 mg/dL Normal 7-25 [facility] Comment on above: Performed By: #### L [id number] #### [facility] ([facility]) [address] [place] [address] UREA NITROGEN/CREATININE (MASS RATIO) IN SER/PLAS 13.0 Normal [facility] Comment on above: Performed By: #### L AB15 #### [facility] ([facility]) [address] [place] [address] CBCon 10-13-2023 Erythrocyte distribution width (RBC) [Ratio] 14.2 % Normal 11.5-15.0 [facility] Comment on above: Performed By: #### L [id number] #### [facility] ([facility]) [address] [place] [address] ERYTHROCYTE MEAN CORPUSCULAR HEMOGLOBIN CONCENTRATION (G/DL) BY AUTOMATED 34.5 g/dL Normal 32.0-35.0 [facility] Comment on above: Performed By: #### L [id number] #### [facility] ([facility]) [address] [place] [address] Hematocrit (Bld) [Volume fraction] 38.0 % Low 39.0-55.0 [facility] Comment on above: Performed By: #### L [id number] #### [facility] ([facility]) [address] [place] [address] Hemoglobin (Bld) [Mass/Vol] 13.1 g/dL Normal 13.0-17.0 [facility] Comment on above: Performed By: #### L [id number] #### [facility] (BEAKER) [address] [place] [address] MCH (RBC) [Entitic mass] 34.4 pg High 27.0-33.0 [facility] Comment on above: Performed By: #### L [id number] #### [facility] (BEAKER) [address] [place] [address] MCV (RBC) [Entitic vol] 99.7 fL High 82.0-98.0 [facility] Comment on above: Performed By: #### L [id number] #### [facility] (BEAKER) [address] [place] [address] PLATELETS (10*3/UL) IN BLOOD AUTOMATED COUNT 212 10*3/uL Normal 150-400 [facility] Comment on above: Performed By: #### L [id number] #### [facility] (BEAKER) [address] [place] [address] RBC (Bld) [#/Vol] 3.81 10*6/uL Low 4.20-5.70 [facility] Comment on above: Performed By: #### L [id number] #### [facility] ([facility]) [address] [place] [address] WBC (Bld) [#/Vol] 6.20 10*3/uL Normal 4.00-10.60 [facility] Comment on above: Performed By: #### L [id number] #### [facility] ([facility]) [address] [place] [address] HEPATIC FUNCTION PANELon Albumin [Mass/Vol] 3.4 g/dL Low 3.5-5.7 [facility] Comment on above: Performed By: #### L [id number] #### [facility] ([facility]) [address] [place] [address] ALP [Catalytic activity/Vol] 114 U/L High 34-104 [facility] Comment on above: Performed By: #### L [id number] #### [facility] ([facility]) [address] [place] [address] ALT [Catalytic activity/Vol] 23 U/L Normal 7-52 [facility] Comment on above: Performed By: #### L [id number] #### [facility] ([facility]) [address] [place] [address] AST [Catalytic activity/Vol] 48 U/L High 13-39 [facility] Comment on above: Performed By: #### L [id number] #### [facility] ([facility]) [address] [place] [address] Bilirubin [Mass/Vol] 1.5 mg/dL High 0.3-1.0 [facility] Comment on above: Performed By: #### L [id number] #### [facility] ([facility]) [address] [place] [address] Magnesium [Mass/Vol] 0.5 mg/dL High 0-0.2 [facility] Comment on above: Performed By: #### L [id number] #### [facility] (BEAKER) [address] [facility] [place] [address] Protein [Mass/Vol] 7.8 g/dL Normal 6.0-8.3 [facility] Comment on above: Performed By: #### L [id number] #### [facility] (BEAKER) [address] [place] [address] Labon 10-13-2023 Lab [id number] Ambrosio Blandon 1955 M Date Provider Department Center 10/13/2023 2244-[facility] MP LAB RESOURCE MP DRAW Medical Pavi No family history on file Normal [facility] Office Visiton 10-13-2023 Follow-up visit [id number] Ambrosio Blandon 1955 M Date Provider Department Garita 10/13/2023 298-IRENA JOHNSON MP GI Medical [facility] No family history on file Level of Service:80202 IN OFFICE/OUTPATIENT ESTABLISHED HIGH MDM 40 MIN (GC) Reason for Visit and Comments: Cirrhosis [239] Ascites [295] Normal [facility] PROTIME-INRon 10-13-2023 INR IN PPP BY COAGULATION ASSAY 1.17 High 0.90-1.10 [facility] Comment on above: Result Comment: [...] 1995;108:231S-246S. Performed By: #### L [id number] #### [facility] (BEAKER) [address] [place] [address] PROTHROMBIN TIME (PT) IN PPP BY COAGULATION ASSAY 14.9 Seconds High 12.3-14.8 [facility] Comment on above: Performed By: #### L [id number] #### [facility] (BEAKER) [address] [place] [address] Orders Onlyon 10-06-2023 Orders Only [id number] Ambrosio Blandon 1955 M Date Provider Department Center 10/06/2023 [id number], HISTORICAL MP GI Medical [facility] No family history on file Normal [facility] Mayito 10-03-2023 L Specimen: [id number] Received: 10/04/23 Status: HUSAM Req Num: [id number] Spec Type: Cytology Subm Dr: Arias Jesus MD Tissues: A ASCITES (ASC) Procedures: HE/2, Gross/Micro L4, Cyto Prepstain, PAPSTN Age/ Patient Sex Location Account Attending Physician Charles Blandon 68/M LABELL [id number] Ward Stern MD SPEC NUM: [id number] RECD: 10/04/23 STATUS: HUSAM REMartin NUM: [id number] WEN: 10/03/[address]: Arias Jesus MD ENTERED: 10/04/[address] [facility] [address]: Babs,Lab Ward Stern MD SPEC TYPE: Cytology DEPT: MARLEN VALDEZ ENTERED BY: [id number] RECV BY: [id number] ORDERED: HE/2, Gross/Micro L4, Cyto Prepstain, PAPSTN ORDERED: HE/2, Gross/Micro L4, Cyto Prepstain, PAPSTN Pathological Diagnosis Ascites fluid cytology: Atypical cells noted. Clinical Information cirrhosis, liver lesion Gross Description Received is 1000 ml yellow cloudy unfixed fluid for cytology said to have been obtained as abdominal ascites fluid. ThinPrep and cell block preparations are prepared for microscopic examination. (ME/nh) CPT Codes 26200 Specimen: [id number] Received: 10/04/23-1336 Status: HUSAM Coffey Num: [id number] Spec Type: Cytology Subm Dr: Arias Jesus MD Tissues: A ASCITES (ASC) Procedures: HE/2, Gross/Micro L4, Cyto Prepstain, PAPSTN Patient: Charles Blandon [id number] (Continued) Signed (signature on file) Linette Bean MD 06/20/24 1340 Normal The Counts Include 234 Beds At [facility] Orders Onlyon 09-27-2023 Orders Only [id number] Ambrosio Blandon 1955 M Date Provider Department Center 09/27/2023 KatieJEREMYHARSHA PINEDA [facility] GI [facility] No family history on file Normal [facility] CREATININE, SERUMon 09-25-19 24 Creatinine [Mass/Vol] 1.06 mg/dL Normal 0.70-1.30 [facility] Comment on above: Performed By: #### L [id number] ####[facility] (BEAKER)[address] [place] [address] GLOMERULAR FILTRATION RATE ML/MIN/1.73 SQ M.PREDICTED 75.5 mL/min/1.73m*2 Normal >60.0 [facility] Comment on above: Result Comment: [facility]???s estimated glomerular filtration rate (eGFR) [...] of individuals. Performed By: #### L [id number] ####[facility] (BEAKER)[address] [place] [address] CTA ABDOMEN PELVIS W IV CONT [facility] 09-25-2023 CTA ABDOMEN PELVIS [...] Gan MD. Not Vldtd Invalid Interpretation Code [facility] Labon 09-25-2023 Lab [id number] Ambrosio Blandon 1955 M Date Provider Department Center 09/25/2023 2245-[facility] OPD LAB RESOURCE [facility] [facility] No family history on file Normal [facility] Orders Onlyon 09-23-2023 Orders Only [id number] Ambrosio Blandon 1955 M Date Provider Department Center 09/23/2023 204-HARSHA CONNER [facility] GI [facility] No family history on file Normal [facility] Orders Onlyon 09-15-2023 Orders Only [id number] Jamia,Wil emma 1955 M Date Provider Department Center 09/15/2023 BROOKLYNN ZEPEDA [facility] No family history on file Normal [facility] Orders Onlyon 09-14-2023 Orders Only [id number] Jamia,Wil emma 1955 M Date Provider Department Center 09/14/2023 BROOKLYNN ZEPEDA [facility] No family history on file Normal [facility] Orders Onlyon 08-28-2023 Orders Only [id number] Jamia,Ambrosio emma 1955 M Date Provider Department Center 08/28/2023 [id number], HISTORICAL GI Medical [facility] No family history on file [facility] Orders Onlyon 08-24-2023 Orders Only [id number] Jamia,Wil emma 1955 M Date Provider Department Center 08/24/2023 [id number], HISTORICAL GI [facility] No family history on file [facility] 29on 08-09-2023 29 Addended by: ARIAS JESUS on: 08/09/2023 12:50 PM Modules accepted: Orders Normal [facility] Orders Onlyon 08-09-2023 Orders Only [id number] Ambrosio Blandon emma 1955 M Date Provider Department Center 08/09/2023 [id number] SANTIZO [facility] No family history on file [facility] Office Visiton 08-07-2023 Follow-up visit [id number] Jamia,Ambrosio emma 1955 M Date Provider Department Center 08/07/2023 294-ARIAS JESUS [facility] No family history on file Level of Service:43973 IN OFFICE/OUTPATIENT NEW LOW MDM 30 MINUTES (GC) Reason for Visit and Comments: New Patient [632] Weight Loss [878827] - 30 pound weight loss since . Pt recently had surgery for 3 polyps removed and 1 hemorrhoid removal. Dyskenisia of esophgaus [Other] Nausea [70] Vomiting [120] - Pt has a urge to but does not vomit. Normal [facility] Mayito 06-13-2023 L Specimen: [id number] Received: 06/14/23 Status: HUSAM Mirmartin Num: [id number] Spec Type: Surgical Subm Dr: Janneth Villegas DO Tissues: A Hemorrhoids (HEMORRHOID 9:00) Procedures: HE, Gross/Micro L3 Age/ Patient Sex Location Account Attending Physician Charles Blandon 67/M [place] [id number] Janneth Villegas DO SPEC NUM: [id number] RECD: 06/14/23 STATUS: HUSAM COFFEY NUM: [id number] WEN: 06/13/[address]: Janneth Villegas DO [...] cut surfaces with diffusely dilated blood-filled spaces. Track Laying Equipment Operator sections are submitted in 1 cassette as follows: A1 - 1 vaccine customer representative section from each fragment to demonstrate change in mucosal types of the largest fragment CPT Codes 90311 Specimen: [id number] Received: 06/14/23-753 Status: HUSAM Coffey Num: [id number] Spec Type: Surgical Subm Dr: Janneth Villegas DO Tissues: A Hemorrhoids (HEMORRHOID 9:00) Procedures: FAMILIA, Clark/Andi L3 Patient: Charles Blandon [id number] (Continued) Signed (signature on file) Linette Bean MD 06/27/239 Normal The Counts Include 234 Beds At [facility] Automated basophil %Ordered By: Janneth Villegas on 06-02-2023 Basophils/100 WBC (Bld) 0.7 % Normal . [facility] Comment on above: Performed By: #### B MP, CBC #### [address] Automated basophil countOrde red By: Janneth Villegas on 06-02-2023 Basophils (Bld) [#/Vol] 0.0 10*3/uL Normal 0.0-0.2 [facility] Comment on above: Result Comment: PERF ORMED BY: [place] [address] PATHOLOGIST PAINTER [employer] CLARK LEARY M.D. Performed By: #### B MP, CBC #### [address] Automated blood monocyte cou ntOrdered By: Janneth Villegas on 06-02-2023 Monocytes (Bld) [#/Vol] 0.9 10*3/uL High 0.0-0.8 [facility] Comment on above: Performed By: #### B MP, CBC #### [address] Automated eosinophil %Ordere d By: Janneth Villegas on 06-02-2023 Eosinophils/100 WBC (Bld) 1.9 % Normal . [facility] Comment on above: Performed By: #### B MP, CBC #### [address] Automated eosinophil countOr dered By: Janneth Villegas on 06-02-2023 Eosinophils (Bld) [#/Vol] 0.1 10*3/uL Normal 0.0-0.45 [facility] Comment on above: Performed By: #### B MP, CBC #### [address] Automated monocyte %Ordered By: Janneth Villegas on 06-02-2023 Monocytes/100 WBC (Bld) 15.7 % Normal . [facility] Comment on above: Performed By: #### B MP, CBC #### [address] Automated neutrophil %Ordere d By: Janneth Villegas on 06-02-2023 Neutrophils/100 WBC (Bld) 68.5 % Normal . [facility] Comment on above: Performed By: #### B MP, CBC #### [address] Basic Metabolic Panelon 05-18 GFR/1.73 sq M.predicted MDRD (S/P/Bld) [Vol rate/Area] mL/min/{1.73_m2} Normal The Counts Include 234 B[facility] At [facility] Comment on above: Performed By: #### B MP, CBC #### [address] Calcium [Mass/volume] in Ser um or PlasmaOrdered By: Janneth Villegas on 06-02-2023 Calcium [Mass/Vol] 8.6 mg/dL Normal 8.6-10.3 [facility] Comment on above: Result Comment: PERF ORMED BY: [place] [address] PATHOLOGIST PAINTER [employer] CLARK LEARY M.D. Performed By: #### B MP, CBC #### [address] Carbon dioxide, total [Moles /volume] in Serum or PlasmaOrdered By: Janneth Villegas on 06-02-2023 CO2 [Moles/Vol] 27.3 mmol/L Normal 21.0-31.0 [facility] Comment on above: Performed By: #### B MP, CBC #### [address] Chloride [Moles/volume] in S mateo or PlasmaOrdered By: Janneth Villegas on 06-02-2023 Chloride [Moles/Vol] 96 mmol/L Low 98-107 [facility] Comment on above: Performed By: #### B MP, CBC #### [address] Complete Blood Count Auto Di ffon 06-02-2023 Mean Corpuscular HGB Conc 35.2 g/dL Normal 32.5-35.6 The Counts Include [address] [facility] At [facility] Comment on above: Performed By: #### B MP, CBC #### [place] [id number] [place] NRBC% 0.1 /100{WBC} Normal 0-0.5 [facility] Comment on above: Performed By: #### B MP, CBC #### [facility] [address] [place] [address] Creatinine [Mass/volume] in Serum or PlasmaOrdered By: Janneth Villegas on 06-02-2023 Creatinine [Mass/Vol] 1.07 mg/dL Normal 0.70-1.30 [facility] Comment on above: Performed By: #### B MP, CBC #### [facility] [address] [place] [address] ECG 12 lead ECGon 06-02-2023 ECG 12 lead ECG [facility] [place] [address] [place] [address] Electrocardiograph Report Signed Patient: Charles Blandon MR#: [id number] 66 : 1955 Acct:[id number] Age/Sex: 67 / M ADM Date: 06/02/23 Loc: Room: Type: [facility] Attending Dr: Janneth Villegas DO Ordering Provider: [...] previous ECGs available Confirmed by Gurpreet Dyson ([id number]) on 06/02/2023 6:21:10 PM Referred By: VENKAT VILLEGAS Electronically Signed By:Gurpreet Dyson Transcribed By: MUS Signed By Gurpreet Dyson MD 06/02/23 1821 Normal The Counts Include 234 Beds At [facility] Erythrocyte distribution wid th [Ratio] by Automated countOrdered By: Janneth Villegas on 06-02-2023 Erythrocyte distribution width (RBC) [Ratio] 13.8 % Normal 12.0-14.8 [facility] Comment on above: Performed By: #### B MP, CBC #### [facility] [address] [place] [address] [place] Erythrocytes [#/volume] in B lood by Automated countOrdered By: Janneth Villegas on 06-02-2023 RBC (Bld) [#/Vol] 3.45 10*6/uL Low 3.90-5.60 [facility] Comment on above: Performed By: #### B MP, CBC #### [facility] [address] Glucose [Mass/volume] in Ser um or PlasmaOrdered By: Janneth Villegas on 06-02-2023 Glucose [Mass/Vol] 132 mg/dL High 70-100 [facility] Comment on above: ADA recommended refe rence rangeRandom Glucose Reference Range is dependent on time and content of last meal. Glucose of more than 200 mg/dL in a nonstressed, ambulatory subject supports the diagnosis of Diabetes Mellitus. Result Comment: [place] Glucose Reference Range is dependent on time and content of last meal. Glucose of more than 200 mg/dL in a nonstressed, ambulatory subject supports the diagnosis of Diabetes Mellitus. ADA recommended reference range Performed By: #### B MP, CBC #### [facility] [address] [place] [address] [place] Hematocrit [Volume Fraction] of Blood by Automated countOrdered By: Janneth Villegas on 06-02-2023 Hematocrit (Bld) [Volume fraction] 35.5 % Low 38.8-50.0 [facility] Comment on above: Performed By: #### B MP, CBC #### [facility] [address] [place] [address] [place] Hemoglobin [Mass/volume] in BloodOrdered By: Janneth Villegas on 06-02-2023 Hemoglobin (Bld) [Mass/Vol] 12.5 g/dL Low 13.0-17.0 [facility] Comment on above: Performed By: #### B MP, CBC #### [address] Leukocytes [#/volume] correc jamila for nucleated erythrocytes in Blood by Automated counOrdered By: Janneth Villegas on 06-02-2023 WBC corrected for nucl RBC Auto (Bld) [#/Vol] 5.7 10*3/uL 4.1-10.5 [facility] Leukocytes [#/volume] in Blo od by Automated countOrdered By: Janneth Villegas on 06-02-2023 WBC (Bld) [#/Vol] 5.7 10*3/uL Normal 4.1-10.5 [facility] Comment on above: Performed By: #### B MP, CBC #### [address] Lymphocytes [#/volume] in Bl ood by Automated countOrdered By: Janneth Villegas on 06-02-2023 Lymphocytes (Bld) [#/Vol] 0.7 10*3/uL Low 1.00-4.8 [facility] Comment on above: Performed By: #### B MP, CBC #### [facility] [address] [place] [address] Lymphocytes/100 leukocytes i n Blood by Automated countOrdered By: Janneth Villegas on 06-02-2023 Lymphocytes/100 WBC (Bld) 13.2 % Normal . [facility] Comment on above: Performed By: #### B MP, CBC #### [facility] [address] [place] [address] MCH [Entitic mass] by Automa jamila countOrdered By: Janneth Villegas on 06-02-2023 MCH (RBC) [Entitic mass] 36.2 pg High 27.5-35.2 [facility] Comment on above: Performed By: #### B MP, CBC #### [facility] [address] [place] [address] MCHC Auto (RBC) [Mass/Vol]Or dered By: Janneth Villegas on 06-02-2023 MCHC (RBC) [Mass/Vol] 35.2 g/dL 32.5-35.6 [facility] MCV [Entitic volume] by Auto mated countOrdered By: Janneth Villegas on 06-02-2023 MCV (RBC) [Entitic vol] 102.9 fL High 83.5-101 [facility] Comment on above: Performed By: #### B MP, CBC #### [facility] [address] Neutrophils [#/volume] in Bl ood by Automated countOrdered By: Janneth Villegas on 06-02-2023 Neutrophils (Bld) [#/Vol] 3.9 10*3/uL Normal 1.8-7.7 [facility] Comment on above: Performed By: #### B MP, CBC #### [address] No Panel InformationOrdered By: Janneth Villegas on 06-02-2023 Estimated GFR (CKD-EPI) > 60.0 mL/Min [facility] Creatinine Clearance (Chem N/A [facility] Nucleated erythrocytes [Pres ence] in Blood by Automated countOrdered By: Janneth Villegas on 06-02-2023 Nucleated RBC Auto Ql (Bld) 0.1 /100{WBC} 0-0.5 [facility] Platelet mean volume [Entiti c volume] in Blood by Automated countOrdered By: Janneth Villegas on 06-02-2023 Platelet mean volume (Bld) [Entitic vol] 8.1 fL Normal 6.6-10.1 [facility] Comment on above: Performed By: #### B MP, CBC #### [facility] [address] [place] [address] Platelets [#/volume] in Bloo d by Automated countOrdered By: Janneth Villegas on 06-02-2023 Platelets (Bld) [#/Vol] 153 10*3/uL Normal 150-450 [facility] Comment on above: Performed By: #### B MP, CBC #### [place] [address] [place] Potassium [Moles/volume] in Serum or PlasmaOrdered By: Janneth Villegas on 06-02-2023 Potassium [Moles/Vol] 4.8 mmol/L Normal 3.5-5.1 [facility] Comment on above: Performed By: #### B MP, CBC #### [address] Serum or plasma anion gap de terminationOrdered By: Janneth Villegas on 06-02-2023 Anion gap [Moles/Vol] 13.5 mmol/L Normal 6.0-15.0 [facility] Comment on above: Performed By: #### B BRADLEY, CBC #### [address] Sodium [Moles/volume] in Ser um or PlasmaOrdered By: Janneth Villegas on 06-02-2023 Sodium [Moles/Vol] 132 mmol/L Low 136-145 [facility] Comment on above: Performed By: #### B BRADLEY, CBC #### [address] Urea nitrogen [Mass/volume] in Serum or PlasmaOrdered By: Janneth Villegas on 06-02-2023 Urea nitrogen [Mass/Vol] 12 mg/dL Normal 7-25 [facility] Comment on above: Performed By: #### B BRADLEY, CBC #### [address] NM gastric emptying studyon 04-26-2023 NM gastric emptying study [facility] [place] [address] Nuclear Medicine Report Signed Patient: Charles Blandon MR#: [id number] 66 : 1955 Acct:[id number] Age/Sex: 67 / M ADM Date: 04/26/23 Loc: [place] Room: Type: [facility] Attending Dr: Lorna Ortega APRN Copies to: [...] Alvarez Jr., D.OAshley04/26/2023 10:18 AM Dictation Location: [place] [address] Transcribed By: [facility] 04/26/23 1018 Dictated By: Morales Alvarez Jr, DO 04/26/23 1017 Signed By: 04/26/23 1018 Normal The Counts Include 234 Beds At [facility] Albumin [Mass/volume] in Ser um or Plasma by Bromocresol green (BCG) dye binding methoOrdered By: oLrna Ortega on 04-12-2023 Albumin BCG dye [Mass/Vol] 3.0 g/dL 3.5-5.7 [facility] Bilirubin.total [Mass/volume ] in Serum or PlasmaOrdered By: Lorna Ortega on 04-12-2023 Bilirubin [Mass/Vol] 1.3 mg/dL High 0.3-1.0 [facility] Comment on above: Samples from patient s [...] Bilirubin. Performed By: #### C MP #### [address] Calcium [Mass/volume] in Ser um or PlasmaOrdered By: Lorna Ortega on 04-12-2023 Calcium [Mass/Vol] 8.3 mg/dL Low 8.6-10.3 [facility] Comment on above: Order Comment: Reaso n for Exam Cirrhosis of liver Performed By: #### C MP #### [facility] [address] [place] [id number] [place] Carbon dioxide, total [Moles /volume] in Serum or PlasmaOrdered By: Lorna Ortega on 04-12-2023 CO2 [Moles/Vol] 27.3 mmol/L Normal 21.0-31.0 [facility] Comment on above: Order Comment: Reaso n for Exam Cirrhosis of liver Performed By: #### C MP #### [facility] [address] [place] [id number] [facility] Comprehensive Metabolic Pane mayito 04-12-2023 Albumin [Mass/Vol] 3.597557 g/dL Low 3.5-5.7 g/dL [facility] Other Bilirubin [Mass/Vol] 1.3355691 mg/dL High 0.3- 1.0 mg/dL [facility] Other Calcium [Mass/Vol] 8.3566756 mg/dL Low 8.6-10 .3 mg/dL [facility] Other CO2 [Moles/Vol] 27.86552531 mmol/L Normal 21.0-3 1.0 mmol/L [facility] Other Creatinine [Mass/Vol] 0.17311839 mg/dL Normal 0. 70-1.30 mg/dL [facility] Other Potassium [Moles/Vol] 5.69773705 mmol/L Normal 3 .5-5.1 mmol/L [facility] Other Protein [Mass/Vol] 6.364937 g/dL Low 6.4-8.9 g/dL [facility] Other Comprehensive Metabolic Panel 3.3 g/dL [facility] Other Albumin [Mass/Vol] 3.0 g/dL Low 3.5-5.7 [facility] Comment on above: Order Comment: Reaso n for Exam Cirrhosis of liver Performed By: #### C MP #### [facility] [address] GFR/1.73 sq M.predicted MDRD (S/P/Bld) [Vol rate/Area] mL/min/{1.73_m2} Normal [facility] Other Comment on above: Order Comment: Reaso n for Exam Cirrhosis of liver Performed By: #### C MP #### [facility] [address] Comprehensive Metabolic Pane lOrdered By: Lorna Ortega on 04-12-2023 Albumin/Globulin [Mass ratio] 0.9 {ratio} Normal [facility] Comment on above: Order Comment: Reaso n for Exam Cirrhosis of liver Performed By: #### C MP #### [facility] [address] ALP [Catalytic activity/Vol] 158 U/L High 34-104 [facility] Comment on above: Order Comment: Reaso n for Exam Cirrhosis of liver Result Comment: PERF ORMED BY: [place] [address] PATHOLOGIST [employer]INTER [employer] CLARK LEARY M.D. Performed By: #### C MP #### [facility] [address] [place], [place] [id number] [facility] ALT [Catalytic activity/Vol] 35 U/L Normal 7-52 [facility] Comment on above: Order Comment: Reaso n for Exam Cirrhosis of liver Performed By: #### C MP #### [facility] [address] [place] [id number] [place] AST [Catalytic activity/Vol] 76 U/L High 13-39 [facility] Comment on above: Order Comment: Reaso n for Exam Cirrhosis of liver Performed By: #### C MP #### [facility] [address] [place] [address] [place] Chloride [Moles/Vol] 95 mmol/L Low 98-107 [facility] Comment on above: Order Comment: Reaso n for Exam Cirrhosis of liver Performed By: #### C MP #### [facility] [address] Glucose [Mass/Vol] 94 mg/dL Normal 70-100 [facility] Comment on above: ADA recommended refe rence rangeRandom Glucose Reference Range is dependent on time and content of last meal. Glucose of more than 200 mg/dL in a nonstressed, ambulatory subject supports the diagnosis of Diabetes Mellitus. Order Comment: Reaso n for Exam Cirrhosis of liver Result Comment: [place] om Glucose Reference Range is dependent on time and content of last meal. Glucose of more than 200 mg/dL in a nonstressed, ambulatory subject supports the diagnosis of Diabetes Mellitus. ADA recommended reference range Performed By: #### C MP #### [facility] [address] Sodium [Moles/Vol] 127 mmol/L Low 136-145 [facility] Comment on above: Order Comment: Reaso n for Exam Cirrhosis of liver Performed By: #### C MP #### [facility] [address] [place] [address] [place] Urea nitrogen [Mass/Vol] 9 mg/dL Normal 7-25 [facility] Comment on above: Order Comment: Reaso n for Exam Cirrhosis of liver Performed By: #### C MP #### [facility] [address] [place] [address] [place] Creatinine [Mass/volume] in Serum or PlasmaOrdered By: Lorna Ortega on 04-12-2023 Creatinine [Mass/Vol] 0.81 mg/dL Normal 0.70-1.30 [facility] Comment on above: Order Comment: Reaso n for Exam Cirrhosis of liver Performed By: #### C MP #### [address] No Panel InformationOrdered By: Lorna Ortega on 04-12-2023 Estimated GFR (CKD-EPI) > 60.0 mL/Min [facility] Creatinine Clearance (Chem N/A [facility] Potassium [Moles/volume] in Serum or PlasmaOrdered By: Lorna Ortega on 04-12-2023 Potassium [Moles/Vol] 5.1 mmol/L Normal 3.5-5.1 [facility] Comment on above: Order Comment: Reaso n for Exam Cirrhosis of liver Performed By: #### C MP #### [address] Protein [Mass/volume] in Ser um or PlasmaOrdered By: Lorna Ortega on 04-12-2023 Protein [Mass/Vol] 6.3 g/dL Low 6.4-8.9 [facility] Comment on above: Order Comment: Reaso n for Exam Cirrhosis of liver Performed By: #### C MP #### [address] Serum globulin measurement b y calculation (mass/volume)Ordered By: Lorna Ortega on 04-12-2023 Globulin (S) [Mass/Vol] 3.3 g/dL Normal [facility] Comment on above: Order Comment: Reaso n for Exam Cirrhosis of liver Performed By: #### C MP #### [address] Serum or plasma anion gap de terminationOrdered By: Lorna Ortega on 04-12-2023 Anion gap [Moles/Vol] 9.8 mmol/L Normal 6.0-15.0 [facility] Comment on above: Order Comment: Reaso n for Exam Cirrhosis of liver Performed By: #### C MP #### [address] XR RIBS 2 VIEWS LEFT WITH [...] Normal Not Available US liveron 11-15-2022 liver [facility] [place] [address] [place], [place] [id number] Ultrasound Report Signed Patient: Charles Blandon MR#: [id number] 66 : 1955 Acct:[id number] Age/Sex: 67 / M ADM Date: 11/15/22 Loc: Room: Type: [facility] Attending Dr: Lorna Ortega [employer] Ordering Provider: Lorna Ortega APRN Date of [...] Albin Villela M.D.11/15/2022 12:48 PM Dictation Location: [place] [address] Tech: Tran Queen Transcribed By: ROLAND 11/15/22 1248 Dictated By: Albin [place] DO 11/15/22 1245 Signed By: 11/15/22 1248 Normal The Counts Include 234 Beds At [facility] Actin smooth muscle IgG Ab [ Units/volume] in SerumOrdered By: Lex Carroll on 09-21-2022 Actin smooth muscle IgG Qn (S) 8 Units 0-19 [facility] Comment on above: Negative 0 - 19 Weak positive 20 - 30 Moderate to strong positive >30 Actin Antibodies are found in 52-85% of patients with autoimmune hepatitis or chronic active hepatitis and in 22% of patients with primary biliary cirrhosis. Alanine aminotransferase [En zymatic activity/volume] in Serum or PlasmaOrdered By: Lex Carroll on 09-21-2022 ALT [Catalytic activity/Vol] 30 U/L 7-52 [facility] Albumin [Mass/volume] in Ser um or Plasma by Bromocresol green (BCG) dye binding methoOrdered By: Lex Carroll on 09-21-2022 Albumin BCG dye [Mass/Vol] 3.6 g/dL 3.5-5.7 [facility] Alkaline phosphatase [Enzyma tic activity/volume] in Serum or PlasmaOrdered By: Lex Carroll on 09-21-2022 ALP [Catalytic activity/Vol] 96 U/L 34-104 [facility] Aspartate aminotransferase [ Enzymatic activity/volume] in Serum or PlasmaOrdered By: Lex Carroll on 09-21-2022 AST [Catalytic activity/Vol] 55 U/L 13-39 [facility] Basophils Auto (Bld) [#/Vol] Ordered By: Lex Carroll on 09-21-2022 Basophils (Bld) [#/Vol] 0.0 10*3/uL 0.0-0.2 [facility] Basophils/100 WBC Auto (Bld) Ordered By: Lex Carroll on 09-21-2022 Basophils/100 WBC (Bld) 0.9 % . [facility] Bilirubin.total [Mass/volume ] in Serum or PlasmaOrdered By: Lex Carroll on 09-21-2022 Bilirubin [Mass/Vol] 0.9 mg/dL 0.3-1.0 [facility] Calcium [Mass/volume] in Ser um or PlasmaOrdered By: Lex Carroll on 09-21-2022 Calcium [Mass/Vol] 8.7 mg/dL 8.6-10.3 [facility] Carbon dioxide, total [Moles /volume] in Serum or PlasmaOrdered By: Lex Carroll on 09-21-2022 CO2 [Moles/Vol] 26.9 mmol/L 21.0-31.0 [facility] Chloride [Moles/volume] in S mateo or PlasmaOrdered By: Lex Carroll on 09-21-2022 Chloride [Moles/Vol] 108 mmol/L 98-107 [facility] Cholesterol [Mass/volume] in Serum or PlasmaOrdered By: Lex Carroll on 09-21-2022 Cholesterol [Mass/Vol] 175 mg/dL 140-200 [facility] Comment on above: Chol less than 200 m g/dl low riskChol 201-239 mg/dl borderline riskChol 240 mg/dl and greater high risk Cholesterol in LDL Calc [Mas s/Vol]Ordered By: Lex Carroll on 09-21-2022 Cholesterol in LDL [Mass/Vol] 94 mg/dL 0-100 [facility] Comment on above: LDL ATP III CLASSIFI CATIONLDL less than 100 mg/dL OptimalLDL 100-129 mg/dL Near or above optimalLDL 130-159 mg/dL Borderline highLDL 160-189 mg/dL HighLDL greater than 189 mg/dL Very high Cholesterol in VLDL Calc [Ma ss/Vol]Ordered By: Lex Carroll on 09-21-2022 Cholesterol in VLDL [Mass/Vol] 21 mg/dL [facility] Creatinine [Mass/volume] in Serum or PlasmaOrdered By: Lex Carroll on 09-21-2022 Creatinine [Mass/Vol] 0.90 mg/dL 0.70-1.30 [facility] Eosinophils Auto (Bld) [#/Vo l]Ordered By: Lex Carroll on 09-21-2022 Eosinophils (Bld) [#/Vol] 0.2 10*3/uL 0.0-0.45 [facility] Eosinophils/100 WBC Auto (Bl d)Ordered By: Lex Carroll on 09-21-2022 Eosinophils/100 WBC (Bld) 3.6 % . [facility] Erythrocyte distribution wid th Auto (RBC) [Ratio]Ordered By: Lex Carroll on 09-21-2022 Erythrocyte distribution width (RBC) [Ratio] 14.2 % 12.0-14.8 [facility] Globulin Calc (S) [Mass/Vol] Ordered By: Lex Carroll on 09-21-2022 Globulin (S) [Mass/Vol] 2.8 g/dL [facility] Glucose [Mass/volume] in Ser um or PlasmaOrdered By: Lex Carroll on 09-21-2022 Glucose [Mass/Vol] 123 mg/dL 70-100 [facility] Comment on above: ADA recommended refe rence rangeRandom Glucose Reference Range is dependent on time and content of last meal. Glucose of more than 200 mg/dL in a nonstressed, ambulatory subject supports the diagnosis of Diabetes Mellitus. Hematocrit Auto (Bld) [Volum e fraction]Ordered By: Lex Carroll on 09-21-2022 Hematocrit (Bld) [Volume fraction] 37.5 % 38.8-50.0 [facility] Hemoglobin [Mass/volume] in BloodOrdered By: Lex Carroll on 09-21-2022 Hemoglobin (Bld) [Mass/Vol] 12.9 g/dL 13.0-17.0 [facility] Hepatitis B virus surface Ag [Presence] in Serum or Plasma by ImmunoassayOrdered By: Lex Carroll on 09-21-2022 HBV surface Ag IA Ql Negative Negative [facility] Hepatitis C virus IgG Ab [Pr esence] in Serum or Plasma by ImmunoassayOrdered By: Lex Carroll on 09-21-2022 HCV IgG IA Ql Non-Reactive Non Reactive [facility] Laboratory - CoagulationOrde red By: Lex Carroll on 09-21-2022 PT Coag (PPP) [Time] 13.0 s 9.0-12.9 [facility] Leukocytes [#/volume] correc jamila for nucleated erythrocytes in Blood by Automated counOrdered By: Lex Carroll on 09-21-2022 WBC corrected for nucl RBC Auto (Bld) [#/Vol] 4.2 10*3/uL 4.1-10.5 [facility] Lymphocytes Auto (Bld) [#/Vo l]Ordered By: Lex Carroll on 09-21-2022 Lymphocytes (Bld) [#/Vol] 1.1 10*3/uL 1.00-4.8 [facility] Lymphocytes/100 WBC Auto (Bl d)Ordered By: Lex Carroll on 09-21-2022 Lymphocytes/100 WBC (Bld) 27.1 % . [facility] MCH Auto (RBC) [Entitic mass ]Ordered By: Lex Carroll on 09-21-2022 MCH (RBC) [Entitic mass] 35.0 pg 27.5-35.2 [facility] MCHC Auto (RBC) [Mass/Vol]Or dered By: Lex Carroll on 09-21-2022 MCHC (RBC) [Mass/Vol] 34.4 g/dL 32.5-35.6 [facility] MCV Auto (RBC) [Entitic vol] Ordered By: Lex Carroll on 09-21-2022 MCV (RBC) [Entitic vol] 101.9 fL 83.5-101 [facility] Monocytes Auto (Bld) [#/Vol] Ordered By: Lex Carroll on 09-21-2022 Monocytes (Bld) [#/Vol] 0.5 10*3/uL 0.0-0.8 [facility] Monocytes/100 WBC Auto (Bld) Ordered By: Lex Carroll on 09-21-2022 Monocytes/100 WBC (Bld) 11.3 % . [facility] Neutrophils Auto (Bld) [#/Vo l]Ordered By: Lex Carroll on 09-21-2022 Neutrophils (Bld) [#/Vol] 2.4 10*3/uL 1.8-7.7 [facility] Neutrophils/100 WBC Auto (Bl d)Ordered By: eLx Carroll on 09-21-2022 Neutrophils/100 WBC (Bld) 57.1 % . [facility] No Panel InformationOrdered By: Lex Carroll on 09-21-2022 Estimated GFR (CKD-EPI) > 60.0 mL/Min [facility] Hepatitis B Core Total Antibody Negative Negative [facility] Comment on above: Performed at: [facility] [address] [id number] Director: John Tang PhD, Phone: [phone] Hepatitis C Interpretation See comment . [facility] Comment on above: Not infected with HC V unless early or acute infection issuspected (which may be delayed in an immunocompromisedindividual), or other evidence exists to indicate HCVinfection. Hepatitis C RNA Quantitative N/A [facility] Creatinine Clearance (Chem 88.23 [facility] Nucleated erythrocytes [Pres ence] in Blood by Automated countOrdered By: Lex Carroll on 09-21-2022 Nucleated RBC Auto Ql (Bld) 0.2 /100{WBC} 0-0.5 [facility] Platelet mean volume Auto (B ld) [Entitic vol]Ordered By: Lex Carroll on 09-21-2022 Platelet mean volume (Bld) [Entitic vol] 9.8 fL 6.6-10.1 [facility] Platelet poor plasma interna tional normalized ratio (INR) by coagulation assay (relatOrdered By: Lex Carroll on 09-21-2022 INR Coag (PPP) [Relative time] 1.1 {INR} [facility] Comment on above: INR Therapeutic Rang [...] 09-21-2022 Platelets (Bld) [#/Vol] 91 10*3/uL 150-450 [facility] Potassium [Moles/volume] in Serum or PlasmaOrdered By: Lex Carroll on 09-21-2022 Potassium [Moles/Vol] 5.0 mmol/L 3.5-5.1 [facility] Protein [Mass/volume] in Ser um or PlasmaOrdered By: Lex Carroll on 09-21-2022 Protein [Mass/Vol] 6.4 g/dL 6.4-8.9 [facility] RBC Auto (Bld) [#/Vol]Ordere d By: Lex Carroll on 09-21-2022 RBC (Bld) [#/Vol] 3.68 10*6/uL 3.90-5.60 [facility] Serum [id number] me asurementOrdered By: Lex Carroll on 09-21-2022 Alpha 1 antitrypsin [Mass/Vol] 205 mg/dL 101-187 [facility] Serum hepatitis B virus surf [place] antibody detectionOrdered By: Lex Carroll on 09-21-2022 HBV surface Ab Ql (S) Non-Reactive . [facility] Comment on above: Non Reactive: Incons istent with immunity, less than 10 mIU/mL Reactive: Consistent with immunity, greater than 9.9 mIU/mL Serum mitochondria M2 IgG an tibody assay (units/volume)Ordered By: Lex Carroll on 09-21-2022 Mitochondria M2 IgG Qn (S) <20.0 Units 0.0-20.0 [facility] Comment on above: Negative 0.0 - 20.0 Equivocal 20.1 - 24.9 Positive >24.9Mitochondrial (M2) Antibodies are found in 90-96% ofpatients with primary biliary cirrhosis.Performed at: [employer] [place] [id number] Director: John Tang PhD, Phone: [phone] Serum or plasma albumin/glob ulin mass ratioOrdered By: Lex Carroll on 09-21-2022 Albumin/Globulin [Mass ratio] 1.3 {ratio} [facility] Serum or plasma alpha 1 anti trypsin phenotyping identification by immunofixationOrdered By: Lex Carroll on 09-21-2022 Alpha 1 antitrypsin phenotyping Immunofixation Nom Mm . [facility] Comment on above: Phenotype Population A-1-AT [...] reference. Ranges used to confirm phenotype.Performed at: [facility] [employer] [facility] [id number] [place], [place] [id number] Director: John Tang PhD, Phone: [phone] at: [facility] [id number] Director: George Brown MD, Phone: [phone] Serum or plasma anion gap de terminationOrdered By: Lex Carroll on 09-21-2022 Anion gap [Moles/Vol] 11.1 mmol/L 6.0-15.0 [facility] Serum or plasma ceruloplasmi n measurement (mass/volume)Ordered By: Lex Carroll on 09-21-2022 Ceruloplasmin [Mass/Vol] 22.4 mg/dL 16.0-31.0 [facility] Comment on above: Performed at: [employer] [address] [id number] Director: John Tang PhD, Phone: [phone] Serum or plasma free cefurox nhi measurement (mass/volume)Ordered By: Lex Carroll on 09-21-2022 Cefuroxime free [Mass/Vol] Negative Negative [facility] Comment on above: Performed at: [employer] [address] [id number] Director: John Tang PhD, Phone: [phone] Serum or plasma high density lipoprotein (HDL) cholesterol measurementOrdered By: Lex Carroll on 09-21-2022 Cholesterol in HDL [Mass/Vol] 60 mg/dL 23-92 [facility] Comment on above: HDL CHOL ATP-III CLA SSIFICATION Cardiovascular RiskHDL > or equal to 60 mg/dL LOWHDL < 40 mg/dL HIGH Serum or plasma total choles terol/high density lipoprotein (HDL) cholesterol mass ratOrdered By: Lex Carroll on 09-21-2022 Cholesterol.total/Chol esterol in HDL [Mass ratio] 2.9 {ratio} <5.0 [facility] Sodium [Moles/volume] in Ser um or PlasmaOrdered By: Lex Carroll on 09-21-2022 Sodium [Moles/Vol] 141 mmol/L 136-145 [facility] Triglyceride [Mass/volume] i n Serum or PlasmaOrdered By: Lex Carroll on 09-21-2022 Triglyceride [Mass/Vol] 107 mg/dL 0-149 [facility] Comment on above: TRIG ATP III CLASSIF ICATIONTRIG less than 150 mg/dL NormalTRIG 150-199 mg/dL Borderline highTRIG 200-500 mg/dL High TRIG greater than 500 mg/dL Very highStandard traceable to the Center for Disease Conrtrol and Prevention (CDC) test method. Urea nitrogen [Mass/volume] in Serum or PlasmaOrdered By: Lex Carroll on 09-21-2022 Urea nitrogen [Mass/Vol] 9 mg/dL 7-25 [facility] WBC Auto (Bld) [#/Vol]Ordere d By: Lex Carroll on 09-21-2022 WBC (Bld) [#/Vol] 4.2 10*3/uL 4.1-10.5 [facility] PROGRESSon 04-05-2017 PROGRESS HNO ID: [id number] Author: Bebe Cunningham Ma Service: (none) Author Type: (none) Type: Progress Notes Filed: 04/05/2017 7:36 AM Note Text: PCP updated [facility] PROGRESS HNO ID: [id number] thor: Tanisha Clarkice: (none)Author Type: PhysicianType: Progress NotesFiled: 04/05/2017 7:36 AMNote Text:This note was created using EyeEmriter.Marcio jonathon Blandon is a 61 year old male.Review of SystemsObjectiveThere were no vitals taken for this visit.Physical ExamAssessment and PlanPlease remove me as PCP if he is moving out of state and plans toestablish elsewhere.Thank you. [facility] SAMIREAJoaquín 04-04-2017 CNPTOUTREA Patient Outreach ([facility]) NATHANIEL BLANDON AM ([id number]) 1955 MDate Time Provider Wzcbsgydvo54/19/17 TANISHA VAZQUEZ [facility] During your visit today, we recorded the following information about you:Bebe Cunningham Ma 04/05/2017 7:36 AM SignedSee refill request 03/30, pt moving to out of [facility] , do you want to updatePCPAmbadriana Vazquez MD 04/05/2017 7:36 AM SignedThis note was created using NoteWriter.SubjectiveWill jonathon Blandon is a 61 year old male.Review of SystemsObjectiveThere were no vitals taken for this visit.Physical ExamAssessment and PlanPlease remove me as PCP if he is [facility] and plans to [facility].Thank you.Bebe Cunningham Ma 04/05/2017 7:36 AM SignedPCP updatedAllergies As of Date: 04/04/2017 Noted Allergy ReactionBACTRIM (SULFAMETHOXAZOLE-TRIMETH *12/15/2014 2 - RashDate Reviewed: 01/04/2017Reviewed by: Bebe Cunningham Ma - Fully AssessedReason for Visit: PHMA/Care Gap Outreach [[id number]]Prescriptions as of 04/04/2017 Sig: METOPROLOL SUCCINATE ER [...] polyps [Z86.010]Follow-up and Disposition History RecordedEncounter Number: [id number] Status:Closed by BEBE CUNNINGHAM MA on 04/05/17 Normal [facility] PROGRESSon 04-04-2017 PROGRESS HNO ID: [id number] Author: Bebe Cunningham Ma Service: (none) Author Type: (none) Type: Progress Notes Filed: 04/05/2017 7:36 AM Note Text: See refill request 03/30, pt moving to out of [facility] , do you want to update PCP Normal [facility] OBSOLETEon 03-30-2017 OBSOLETE Refill ([facility]) NATHANIEL BLANDON AM ([id number]) 1955 MDate Time Provider Dvddsrqjpd96/14/17 TANISHA VAZQUEZ [facility] During your visit today, we recorded the following information about you:Bebe Cunningham Ma 03/30/2017 4:25 PM SignedPt due for yearly split in Abbyshreyas Cunningham Ma 03/31/2017 3:12 PM SignedPt states they are moving to [place] he has apt to see a new [...] Status:Closed by VIRGINIA SAUCEDA CNP on 03/31/17 [facility] Nurse Visit ([facility]) NATHANIEL BLANDON AM ([id number]) 1955 MDate Time Provider Nsrgeohimn46/30/17 5:50 PM NURSE EYAD COLLAZO [facility] During your visit today, we recorded [...] Status:Closed by JUNAID OFFICE MGROTONIEL on 02/13/17 [facility] 02-13-2017 HOSP REFILL - MYCHART ([facility]) NATHANIEL BLANDON AM ([id number]) 1955 MDate Time Provider Vwuhdwyrnm90/30/17 TANISHA VAZQUEZ During your visit today, we recorded the following information about you:Bebe Cunningham Ma 02/13/2017 2:35 PM SignedMessage from [facility]:Original authorizing provider: Ruben Iqbal would like a refill of the following medications:zolpidem (AMBIEN) 10 mg tab [Tanisha Vazquez MD]Preferred pharmacy: [id number] [place] [address] - [id number] - [phone] [facility] [id number]:Bebe Cunningham Ma 02/13/2017 2:38 PM SignedScript pending [...] Status:Closed by TANISHA VAZQUEZ MD on 02/13/17 [facility] CNOVon 01-04-2017 CNOV Office Visit ([facility]) NATHANIEL BLANDON AM ([id number]) 1955 MDate Time Provider Department01/04/17 9:00 AM TANISHA VAZQUEZ [facility] During your visit today, we recorded [...] 3V AP/LAT/OBL LTBAILEY Iqbaleferrfina Provider: TANISHA VAZQUEZ [[id number]]Allergies As of Date: 01/04/2017 Noted Allergy ReactionBACTRIM (SULFAMETHOXAZOLE-TRIMETH *12/15/2014 2 - RashDate Reviewed: 01/04/2017Reviewed by: Bebe Cunningham Ma - Fully AssessedReason for Visit: Acute Visit [896] Cmt: swollen toe x 2 weeksReason For Visit History RecordedPrimary Visit Diagnosis:Great toe pain, left [M79.675]Order(s):XR TOE AP/LAT/OBL LT [[id number]] Order #: [id number] FUTURE XR FOOT GENERAL 3V AP/LAT/OBL LT [[id number]] Order #: [id number] FUTUREPrescriptions as of 01/04/2017 Sig: METOPROLOL SUCCINATE [...] daily with meals. Disc: Course of therapy completedEncmarina del rey hospitaler Number: [id number] Status:Closed by TANISHA VAZQUEZ MD on 01/04/17 [facility] Jose [facility] NATHANIEL BLANDON AM ([id number]) 1955 MDate Time Provider Department01/04/17 TANISHA VAZQUEZ [facility] During your visit today, we recorded [...] T TO ORTHOPAEDIC SURGERY [[id number]] Order #: [id number]: 1Prescriptions as of 01/04/2017 Sig: METOPROLOL SUCCINATE [...] Status:Closed by TANISHA VAZQUEZ MD on 01/04/17 [facility] PROGRESSon 01-04-2017 PROGRESS HNO ID: [id number] thor: Jaclyn Lowe (Tech) JoeService: (none)Author Type: TechnicianType: Progress NotesFiled: 01/04/2017 9:36 AMNote Text: Radiology Service Progress NotePATIENT NAME: Charles AyalagMRN: [id number] OF SERVICE: January 04, 2017TIME: 9:36 AMPATIENT IDENTITY VERIFICATION COMPLETED USING TWO (2) METHODS: Patientconfirmed name verbally and Date of .PATIENT GENDER DATA: MalePATIENT RELEVANT IMPLANT DATA REVIEWED: Not ApplicableRADIOLOGY DEPARTMENT: General X-ray: Exam(s) Completed: Lower ExtremityX-Ray(s): Foot, Left and Wt. Bearing and Toes, Left:PERIPHERAL IV DATA: Not applicableSIGNED BY: Jaclyn Diaz, RRTSeptember 2016 9:36 AM Normal [facility] PROGRESS HNO ID: [id number] thor: Tanisha Clarkice: (none)Author Type: PhysicianType: Progress [...] GENERAL 3V AP/LAT/OBL LTTanisha Vazquez MD Normal [facility] XR FOOT 3V AP/LAT/OBL LTon 0 01-04-2017 [...] phalanx with extension into the 1st IP joint.Recreation Counselor: SRINI Transcribe Date/Time: Jan 04 2017 10:28ADictated by : MALORIE NICHOLS MDThis examination was interpreted and the report reviewed and electronically signed by: MALORIE NICHOLS MD on Jan 04 2017 2:47PM [id number] Normal [facility] XR TOE 3V AP/LAT/OBL LTon XR TOE [...] phalanx with extension into the 1st IP joint.Recreation Counselor: SRINI Transcribe Date/Time: Jan 04 2017 10:28ADictated by : MALORIE NICHOLS MDThis examination was interpreted and the report reviewed and electronically signed by: MALORIE NICHOLS MD on Jan 04 2017 2:47PM [id number] [facility] ([facility]) NATHANIEL BLANDON AM ([id number]) 1955 MDate Time Provider Department12/11/16 COY BLANCHARD [facility] During your visit today, we recorded [...] Status:Closed by COY BLANCHARD MD on 12/12/16 [facility]) [facility]ATH[facility] BLANDON AM ([id number]) 1955 [facility]12/10/16 9:30 AM COY BLANCHARD [facility] During your visit today, we recorded [...] ?F) (Oral) Wt 95.7 kg (211 lb) XwI563% BMI 30.71 kg/m2BMI 30.71 kg/(m2)General: alert and [...] MG TABLET- URIC ACID BLOODMattjose juan Blanchard [facility] 12/10/2016 9:58 AM SignedPhlebotomy was performed per [...] 1 URIC ACID BLOOD [SQURIC] Order #: [id number] as of 12/10/2016 Sig: METOPROLOL SUCCINATE ER [...] to improve.Follow-up and Disposition History RecordedEncounter Number: [id number] Status:Closed by COY BLANCHARD MD on 12/10/16 Normal [facility] PROGRESSon 12-10-2016 PROGRESS HNO ID: [id number] thor: Coy Blanchard, [facility] MIAMIervice: (none)Author Type: PhysicianType: Progress NotesFiled: 12/10/2016 9:59 AMNote Text:Charles Blandon is a 61 year old male here complaining of left toe pain.According to the patient, he states he has been diagnosed with gout in [facility] and has had similar symptoms. Last night, [...] ACID ANA PAULAMattjose juan Blanchard MD Normal [facility] Uric Acidon 12-10-2016 Urate 8.2 mg/dL High 4.0-8.1 [facility] Comment on above: Performed By: #### U BARB ####[facility] [address] [place], [place] [phone] CNOVon 11-01-2016 CNOV Office Visit ([facility]) NATHANIEL BLANDON AM ([id number]) 1955 MDate Time Provider Department11/01/16 9:30 AM ROYCE ARAIZA During your visit today, we recorded the following information about you: Pulse Blood pressure 57/minute 165/82Aloalbania Araiza MD 11/01/2016 2:06 PM SignedDERMATOLOGY CONSULT FOR MOHSSERVICE DATE: 11/01/2016PRIMARY CARE PHYSICIAN: MORENA Iqbal PROVIDER:Tanisha Vazquez MD[address] [facility] [id number] requested for an opinion regarding the evaluation and treatmentof skin cancer. My final impression and recommendations will be communicatedback to the requesting physician by way of the shared medical record or lettervia US mail.SUBJECTIVECHIEF COMPLAINT: BCCHISTORY OF PRESENT ILLNESSBIOPSY INFORMATION:1. Pathology Results: BCC Nodular and Ulcerated of the LEFT TEMPLEReport Number: Inside Pathology [id number] Performed: 08/10/2016Performed By: [facility] ProviderPast Treatment: No Past Treatment Tumor Type: PrimaryPresent For: unknown amount of month(s)Signs ANDamp; Symptoms: Non-healingPAST DERM HISTORY: No History of Skin CancerFAMILY HISTORY: No History of Skin CancerPAST MEDICAL HISTORYDiagnosis Date- Recinos's esophagus- GERD (gastroesophageal reflux disease)- HTN (hypertension)- Hx of colonic polyps- Osteoporosis- Umbilical herniaPAST SURGICAL [id number]: CHOLECYSTECTOMYNo date: COLONOSCOPY Comment: every 3 yearsNo [...] Nose, Chin, Lips, Ears, Periauricular Skin and Sabianist)Pre-op Size: 0.6 cm - 1 cm, (0.7cm [...] and Past Histories independentlygathered by the clinical network and threat support specialist and the remaining scribed noteaccurately describes my personal service to the patient.SIGNATURE: Royce Araiza MD PATIENT NAME: Charles AyalagDATE: November 01, 2016 : 10:20 AM PAGER/CONTACT #:MOHS MICROGRAPHIC OPERATIVE REPORTSERVICE DATE: 11/01/2016SERVICE TIME: 9:10 AMLOCATION:[facility] [place], [place] [address]BOJTYJSHI PROVIDER:Tanisha Vazquez MD[address] [facility] [id number] START TIME: 941PROCEDURE END TIME: URGEON: Dr. [...] Available at Bedside: Inside pathology report # [id number] Size: 0.6 cm - 1 cm, (0.7cm [...] surgery on a Primarytumor type from LEFT HINDUISM (location of tumor).Post-op Defect Size: 1.0 x [...] GIVEN WITH VERBAL UNDERSTANDING: YesPATIENT DISCHARGED TO CHAIRMAN & CEO/NAME: SelfFOLLOW UP: Return for wound care check in 6 weeksSee Dermatology yearly or as needed for FSE'sPRNThe documentation for this note was completed by Lis Serrano RN acting asscribe for Royce Araiza MD. November 01, 2016 10:29 AM.I agree with the Chief Complaint, ROS, and Past Histories independentlygathered by the clinical network and threat support specialist and the remaining scribed noteaccurately [...] SurgeryDepartment to speak to a Nurse at [phone].After 5 pm, nights, and weekends, please call [phone] or and ask for the dermatology surgery fellow online user experience strategist.Referring Provider: TANISHA VAZQUEZ [[id number]]Allergies As of Date: 11/01/2016 Noted Allergy ReactionBACTRIM (SULFAMETHOXAZOLE-TRIMETH *12/15/2014 2 - RashDate Reviewed: 11/01/2016Reviewed by: Royce Araiza - Fully AssessedPrimary Visit Diagnosis:Basal cell carcinoma of left faith region [C44.319]Prescriptions as of 11/01/2016 Sig: METOPROLOL [...] Department to speak to a Nurse at [phone]. After 5 pm, nights, and weekends, please call [phone] or and ask for the dermatology surgery fellow online user experience strategist.Disposition: Return in about 6 weeks (around 12/13/2016) for WOUND CHECK.Follow-up and Disposition History RecordedEncounter Number: [id number] Status:Closed by ROYCE ARAIZA MD on 11/01/16 [facility] PROGRESSon 11-01-2016 PROGRESS HNO ID: [id number] thor: Royce Lindoervice: (none)Author Type: PhysicianType: Progress NotesFiled: 11/01/2016 2:06 PMNote Text:DERMATOLOGY CONSULT FOR MOHSSERVICE DATE: 11/01/2016PRIMARY CARE PHYSICIAN: MORENA Iqbal PROVIDER:Tanisha Vazquez MD[address] [place] [address]Consultation requested for an opinion regarding the evaluation andtreatment of skin cancer. My final impression and recommendations will becommunicated back to the requesting physician by way of the shared medicalrecord or letter via US mail.SUBJECTIVECHIEF COMPLAINT: BCCHISTORY OF PRESENT ILLNESSBIOPSY INFORMATION:1. Pathology Results: BCC Nodular and Ulcerated of the LEFT TEMPLEReport Number: Inside Pathology [id number] Performed: 08/10/2016Performed By: [facility] ProviderPast Treatment: No Past Treatment Tumor Type: PrimaryPresent For: unknown amount of month(s)Signs AND Symptoms: Non-healingPAST DERM HISTORY: No History of Skin CancerFAMILY HISTORY: No History of Skin CancerPAST MEDICAL HISTORYDiagnosis Date- Recinos's esophagus- GERD (gastroesophageal reflux disease)- HTN (hypertension)- Hx of colonic polyps- Osteoporosis- Umbilical herniaPAST SURGICAL [id number]: CHOLECYSTECTOMYNo date: COLONOSCOPY Comment: every 3 yearsNo [...] Eyebrows, Nose, Chin, Lips, Ears, Periauricular Skinand Sabianist)Pre-op Size: 0.6 cm - 1 cm, (0.7cm [...] and Past Histories independentlygathered by the clinical network and threat support specialist and the remaining scribed noteaccurately describes my personal service to the patient.SIGNATURE: Royce Araiza MD PATIENT NAME: Charles AyalagDATE: November 01, 2016 : 10:20 AM PAGER/CONTACT #:MOHS MICROGRAPHIC OPERATIVE REPORTSERVICE DATE: 11/01/2016SERVICE TIME: 9:10 AMLOCATION:Celine Monzon [facility] [place], [place] [address]KRBKKRUOZ PROVIDER:Tanisha Vazquez MD[address] [facility] [id number] START TIME: 941PROCEDURE END TIME: URGEON: Dr. [...] Available at Bedside: Inside pathology report # [id number] Size: 0.6 cm - 1 cm, (0.7cm X 0.8cm)Lymphadenopathy: NoneIndication for Mohs: Anatomic Location where lesion is prone to recur,Type of tumor, Age of patient and Ill-defined bordersLocation: Area H: (Mask Areas of the Face - Includes Central Face,Eyelids, Inner/Outer [place], Eyebrows, Nose, Chin, Lips, Ears,Periauricular Skin and Sabianist)Preparation: Povidone-iodineLAYER AThe patient was positioned, prepped with [...] surgery on aPrimary tumor type from LEFT HINDUISM (location of tumor).Post-op Defect Size: 1.0 x [...] GIVEN WITH VERBAL UNDERSTANDING: YesPATIENT DISCHARGED TO CHAIRMAN & CEO/NAME: SelfFOLLOW UP: Return for wound care check in 6 weeksSee Dermatology yearly or as needed for FSE'sPRNThe documentation for this note was completed by Lis Serrano RN acting asscribe for Royce Araiza MD. November 01, 2016 10:29 AM.I agree with the Chief Complaint, ROS, and Past Histories independentlygathered by the clinical network and threat support specialist and the remaining scribed noteaccurately describes my personal service to the patient.SIGNATURE: Royce Araiza MD PATIENT NAME: Charles AyalagDATE: November 01, 2016 : 9:10 AM PAGER/CONTACT #: Sammy [facility] 10-17-2016 [facility] Nurse Visit ([facility]) JAMIANATHANIEL RUIZ León ([id number]) 1955 MDate Time Provider Department10/17/16 7:00 AM NURSE EYAD COLLAZO [facility] During your visit today, we recorded the following information about you:Constance Elida Registered Nurse Maternal Child 10/17/2016 1:46 PM SignedPhlebotomy was performed per the order of Tanisha Vazquez M.D.., accessing leftantecubital vein.Needle removed intact. Dressing secured with tape.Patient denies discomfort, dizziness, light-headedness, or weakness and leftthe office ambulatory..Referring Provider: TANISHA VAZQUEZ [[id number]]Allergies As of Date: 10/17/2016 Noted Allergy ReactionBACTRIM (SULFAMETHOXAZOLE-TRIMETH *12/15/2014 2 - RashDate Reviewed: 08/10/2016Reviewed by: Bebe Cunningham Ma - Fully AssessedVisit Diagnoses:Abnormal LFTs [R79.89] Elevated fasting blood sugar [R73.01]Order(s):COMP METABOLIC PANEL [SQCMP] Order #: [id number] HGB A1C [VOKRV0M] Order #: [id number] as of 10/17/2016 Sig: METOPROLOL SUCCINATE ER [...] of colonic polyps [Z86.010]Visit Notes:>> Constance Mancuso Registered Nurse Maternal Child [facility] Oct 17, 2016 1:42 PM Status: SignedPhlebotomy was performed per the order of Tanisha Vazquez M.D.., accessingleft antecubital vein.Needle removed intact. Dressing secured with tape.Patient denies discomfort, dizziness, light-headedness, or weakness andleft the office ambulatory.. Status:Closed by ELIDA AUTHORIZATION NURSE, ELAINE on 10/17/16 Normal [facility] Comp Metabolic Panelon 10-17 Alanine aminotransferase (ALT) 38 U/L Normal 10-54 [facility] Comment on above: Performed By: #### C MP, HBA1C ####[facility] [place] [phone] Albumin 4.1 g/dL Normal 3.9-4.9 [facility] Comment on above: Performed By: #### C MP, HBA1C ####[facility] [address] [place] [phone] Alkaline phosphatase (ALP) 54 U/L Normal 36-108 [facility] Comment on above: Performed By: #### C MP, HBA1C ####[facility] [address] [place], [place] [phone] Anion gap 20 mmol/L High 9-18 [facility] Comment on above: Performed By: #### C MP, HBA1C ####[facility] [place] [phone] Aspartate aminotransferase (AST) 43 U/L High 14-40 [facility] Comment on above: Performed By: #### C MP, HBA1C ####[facility] [place] [phone] Bilirubin (total) 0.3 mg/dL Normal 0.2-1.3 [facility] Comment on above: Performed By: #### C MP, HBA1C ####[facility] [place] [phone] Calcium 9.5 mg/dL Normal 8.5-10.2 [facility] Comment on above: Performed By: #### C MP, HBA1C ####[facility] [phone] Chloride 101 mmol/L Normal 97-105 [facility] Comment on above: Performed By: #### C MP, HBA1C ####[place] [address] [address] [phone] CO2 23 mmol/L Normal 22-30 [facility] Comment on above: Performed By: #### C MP, HBA1C ####[place] [address] [place] [place] [phone] Creatinine 1.02 mg/dL Normal 0.73-1.22 [facility] Comment on above: Performed By: #### C MP, HBA1C ####[place] [address] [place] [phone] eGFR (non-black) mL/min/{1.73_m2} Normal [facility] Comment on above: Performed By: #### C MP, HBA1C ####[place] [address] [place] [address] [place] [phone] Result Comment: eGFR (Estimated GFR) Units of [...] Glucose mass conc 90 mg/dL Normal 74-99 [facility] Comment on above: Result Comment: The [place] Diabetes Association (ADA) provides guidance for cutoff [...] Standards of Medical Care in Diabetes 2016, [place] Diabetes Association. Diabetes Care. 2016.39(Suppl 1). Performed By: #### C MP, HBA1C ####[address] [phone] Potassium molar conc 4.6 mmol/L Normal 3.7-5.1 [facility] Comment on above: Performed By: #### C MP, HBA1C ####[address] [phone] Protein 7.1 g/dL Normal 6.3-8.0 [facility] Comment on above: Performed By: #### C MP, HBA1C ####[address] [phone] Sodium 144 mmol/L Normal 136-144 [facility] Comment on above: Performed By: #### C MP, HBA1C ####[address] [phone] Urea nitrogen 18 mg/dL Normal 9-24 [facility] Comment on above: Performed By: #### C MP, HBA1C ####[address] [phone] Hemoglobin A1con 10-17-2016 Glucose mass conc 120 mg/dL Normal [facility] Comment on above: Result Comment: eAG: (Estimated average glucose) is a calculated value from HgbA1c and is vaccine customer representative of the average blood glucose level in the last 2-3 month period. Performed By: #### C MP, HBA1C ####[facility] [place], [place] [phone] Hemoglobin A1c/Hemoglobin.total mass fraction (Bld) 5.8 % High 4.3-5.6 [facility] Comment on above: Result Comment: [facility] Diabetes Association guidelines indicate that patients with HgbA1c in the range 5.7-6.4% are at increased risk for development of diabetes, and intervention by lifestyle modification may be beneficial. HgbA1c greater or equal to 6.5% is considered diagnostic of diabetes. Performed By: #### C MP, HBA1C ####[facility] [place], [place] [phone] Vital Signs Date Time Vital Sign Value Performing Clinician Facility 07-05-2023 08:58-0400 Body weight 94.85 kg II Rusty Delgado Work Phone: [facility] 07-05-2023 08:58-0400 Diastolic blood pressure 71 mm[Hg] II Rusty Delgado Work Phone: [facility] 07-05-2023 08:58-0400 Heart rate 88 /min II Rusty Delgado Work Phone: [facility] 07-05-2023 08:58-0400 Systolic blood pressure 121 mm[Hg] II Rusty Delgado Work Phone: [facility] 06-13-2023 17:15-0500 Diastolic blood pressure 62 mm[Hg] II Rusty Delgado Work Phone: [facility] 06-13-2023 17:15-0500 Heart rate 72 /min II Rusty Delgado Work Phone: [facility] 06-13-2023 17:15-0500 Respiratory rate 20 /min II Rusty Delgado Work Phone: [facility] 06-13-2023 17:15-0500 SaO2% (BldA) [Mass fraction] 94 % II Rusty Delgado Work Phone: [facility] 06-13-2023 17:15-0500 Systolic blood pressure 101 mm[Hg] II Rusty Delgado Work Phone: [facility] 06-13-2023 13:38-0500 Body height 175.26 cm II Rusty Delgado Work Phone: [facility] 06-13-2023 13:38-0500 Body mass index (BMI) [Ratio] 31.1 kg/m2 II Rusty Delgado Work Phone: [facility] 06-13-2023 13:38-0500 Body weight 95.7 kg II Rusty Delgado Work Phone: [facility] 06-13-2023 12:05-0500 Body temperature 98.2 [degF] II Rusty Delgado Work Phone: [facility] 05-31-2023 15:07-0500 Body height 175.3 cm Janneth Itzkowitz DO Work Phone: [facility] 05-31-2023 15:07-0500 Body mass index (BMI) [Ratio] 32.05 kg/m2 Janneth Itzkowitz DO Work Phone: [facility] 05-31-2023 15:07-0500 Body weight 98.43 kg Janneth Itzkowitz DO Work Phone: [facility] 05-31-2023 15:07-0500 Diastolic blood pressure 72 mm[Hg] Janneth Itzkowitz DO Work Phone: [facility] 05-31-2023 15:07-0500 Systolic blood pressure 120 mm[Hg] Janneth Itzkowitz DO Work Phone: [facility] 05-23-2023 06:44-0500 Body height 175.26 cm II Rusty Delgado Work Phone: [facility] 05-23-2023 06:44-0500 Body weight 99.79 kg II Rusty Delgado Work Phone: [facility] 05-18-2023 14:04-0500 Body height 175.3 cm Janneth Itzkowitz DO Work Phone: [facility] 05-18-2023 14:04-0500 Body mass index (BMI) [Ratio] 32.78 kg/m2 Janneth Itzkowitz DO Work Phone: [facility] 05-18-2023 14:04-0500 Body weight 100.7 kg Janneth Itzkowitz DO Work Phone: [facility] 05-18-2023 14:04-0500 Diastolic blood pressure 74 mm[Hg] Janneth Itzkowitz DO Work Phone: [facility] 05-18-2023 14:04-0500 Systolic blood pressure 120 mm[Hg] Janneth Itzkowitz DO Work Phone: [facility] 04-12-2023 11:00-0500 Body height 175.26 cm Lorna Ortega Other [facility] 04-12-2023 11:00-0500 Body mass index (BMI) [Ratio] 33.22 kg/m2 Lorna Raymonovanner Other [facility] [employer] Other 04-12-2023 11:00-0500 Body weight 102.06 kg Lorna Scnaya Other [facility] [employer] Other 04-12-2023 11:00-0500 Body weight 102.05 kg II Rusty Delgado Work Phone: [facility] 04-12-2023 11:00-0500 Diastolic blood pressure 67 mm[Hg] Lorna Scovanner Other [facility] 04-12-2023 11:00-0500 Systolic blood pressure 135 mm[Hg] Lorna Scovanner Other [facility] 11-10-2022 11:00-0400 Body weight 99.79 kg Lorna Ortega Other [facility] [employer] Other 11-10-2022 11:00-0400 Diastolic blood pressure 74 mm[Hg] Lorna Ortega Other [facility] [employer] Other 11-10-2022 11:00-0400 Systolic blood pressure 127 mm[Hg] Lorna Ortega Other [facility] [employer] Other 09-21-2022 08:49-0400 Diastolic blood pressure 78 mm[Hg] II Rusty Delgado Work Phone: [facility] 09-21-2022 08:49-0400 Heart rate 50 /min II Rusty Delgado Work Phone: [facility] 09-21-2022 08:49-0400 SaO2% (BldA) [Mass fraction] 99 % II Rusty Delgado Work Phone: [facility] 09-21-2022 08:49-0400 Systolic blood pressure 125 mm[Hg] II Rusty Delgado Work Phone: [facility] 09-21-2022 07:36-0400 Body height 175.26 cm II Rusty Delgado Work Phone: [facility] 09-21-2022 07:36-0400 Body temperature 98.5 [degF] II Rusty Delgado Work Phone: [facility] 09-21-2022 07:36-0400 Body weight 95.25 kg II Rusty Delgado Work Phone: [facility] 09-21-2022 07:36-0400 Respiratory rate 16 /min II Rusty Delgado Work Phone: [facility] Encounters Encounter Date Encounter Type Care Provider Facility Start: 11-27-2023 End: 11-27-2023 [facility] IRENA JOHNSON [facility] Start: 11-15-2023 End: 11-15-2023 ambulatory RUSTY DELGADO Not Available Start: 11-14-2023 End: 11-14-2023 ambulatory LANRE GUERIN [facility] Start: 11-08-2023 End: 11-08-2023 ambulatory ROSALINO LAMAS Not Available Start: 10-13-2023 ambulatory [facility] Start: 10-13-2023 End: 10-13-2023 ambulatory IRENA JOHNSON [facility] Start: 10-09-2023 End: 10-09-2023 ambulatory JANNETH VILLEGAS Not Available Start: 10-03-2023 End: 10-03-2023 ambulatory II Rusty Delgado Work Phone: [facility] Work Phone: Start: 10-03-2023 End: 10-03-2023 Departed Referred II Rusty Delgado Work Phone: [facility] Start: 10-02-2023 End: 10-02-2023 ambulatory LYNDSEY PATEL Not Available Start: 09-25-2023 End: 09-25-2023 ambulatory [facility] Start: 09-15-2023 End: 09-15-2023 ambulatory WARD SIMPSONCT Not Available Start: 09-05-2023 End: 09-05-2023 ambulatory WARD BENEDICT Not Available Start: 08-30-2023 End: 08-30-2023 ambulatory WARD BENEDICT Not Available Start: 08-22-2023 End: 08-22-2023 ambulatory [facility] Start: 08-07-2023 End: 08-07-2023 ambulatory [facility] Start: 07-18-2023 End: 07-18-2023 ambulatory FABY ECHEVARRIA Not Available Start: 07-12-2023 End: 07-13-2023 ambulatory Janneth Villegas Facility:[facility] Start: 07-12-2023 End: 07-12-2023 Patient encounter procedure Jourdan ARRIAZA [facility] Start: 07-05-2023 End: 07-05-2023 ambulatory II Rusty Delgado Work Phone: [facility] Work Phone: Start: 07-05-2023 End: 07-05-2023 Patient encounter procedure II Rusty Delgado Work Phone: [facility] Gastroenterology Work Phone: Start: 06-29-2023 End: 06-29-2023 ambulatory JANNETH H ITZKOWITZ Not Available Start: 06-23-2023 ambulatory Janneth Itzkowitz Facil ity:[facility] Start: 06-22-2023 End: 06-22-2023 ambulatory JANNETH H ITZKOWITZ Not Available Start: 06-13-2023 End: 06-13-2023 Admission to same day surgery center II Rusty Delgado Work Phone: [facility] [place] Start: 06-13-2023 End: 06-13-2023 ambulatory Janneth Itzkowitz Facility:[facility] Start: 06-02-2023 End: 06-02-2023 Patient encounter procedure II Rusty Delgado Work Phone: [facility] Work Phone: Start: 06-02-2023 End: 06-02-2023 ambulatory II Rusty Delgado Work Phone: [facility] Work Phone: Start: 05-31-2023 End: 05-31-2023 Office outpatient visit 25 minutes Janneth H Itzkowitz DO Work Phone: [facility] Comment on above: Fissure in ano (Prim chinmay Dx) Start: 05-31-2023 End: 05-31-2023 ambulatory JANNETH H ITZKOWITZ Not Available Start: 05-23-2023 End: 05-23-2023 Admission to same day surgery center II Rusty Delgado Work Phone: [facility]-Dig[facility] Work Phone: Start: 05-23-2023 End: 05-23-2023 ambulatory Mnih Griffith Facility:[facility] Start: 05-18-2023 End: 05-18-2023 Office outpatient new 45 minutes Janneth Rouse Long DO Work Phone: [facility] Comment on above: Fissure in ano Start: 05-18-2023 End: 05-18-2023 ambulatory JANNETH H ITZLILLIAMWITZ Not Available Start: 05-11-2023 End: 05-11-2023 ambulatory Lorna Ortega Other [facility] Other Start: 05-11-2023 Office outpatient visit 15 minutes Lorna Ortega [facility] Start: 04-28-2023 End: 04-28-2023 ambulatory Lorna Ortega Other [facility] Other Start: 04-28-2023 Telephone encounter Lorna Coates [facility] Start: 04-27-2023 End: 04-27-2023 ambulatory Lorna Ortega Other [facility] Other Start: 04-27-2023 Telephone encounter Lorna Coates [facility] Start: 04-26-2023 End: 04-26-2023 Patient encounter procedure II Rusty Delgado Work Phone: [facility]Nuc [facility] [place] Work Phone: Start: 04-26-2023 End: 04-26-2023 ambulatory Rusty Delgado Facility:[facility] Start: 04-13-2023 End: 04-13-2023 ambulatory Lorna Ortega Other [facility] Other Start: 04-13-2023 Telephone encounter Lorna Coates [facility] Start: 04-12-2023 Office outpatient visit 25 minutes Lorna Ortega [facility] Start: 04-12-2023 Telephone encounter Lorna Coates [facility] Start: 04-12-2023 End: 04-12-2023 Patient encounter procedure II Rusty Delgado Work Phone: [facility] [place] Work Phone: Start: 04-12-2023 End: 04-12-2023 ambulatory II Rusty Delgado Work Phone: [facility] Other Start: 04-12-2023 End: 04-12-2023 Patient encounter procedure II Rusty Delgado Work Phone: [facility] Gastroenterology Work Phone: Start: 04-03-2023 End: 04-03-2023 ambulatory Lorna Ortega Other [facility] Other Start: 04-03-2023 Telephone encounter Lorna Coates [facility] Start: 03-30-2023 End: 03-30-2023 ambulatory RUSTY DELGADO Not Available Start: 03-24-2023 End: 03-24-2023 ambulatory RUSTY DELGADO Not Available Start: 03-24-2023 End: 03-24-2023 ambulatory RUSTY DELGADO Not Available Start: 11-18-2022 End: 11-18-2022 ambulatory Lorna Ortega Other [facility] Other Start: 11-18-2022 Telephone encounter Lorna Coates [facility] Start: 11-15-2022 End: 11-15-2022 Patient encounter procedure II Rusty Delgado Work Phone: [facility]Ul[facility] [place] Work Phone: Start: 11-15-2022 End: 11-15-2022 ambulatory II Rusty Delgado Work Phone: [facility] Work Phone: Start: 11-10-2022 End: 11-10-2022 ambulatory Lorna Ortega Other [facility] [employer] Other Start: 11-10-2022 Office outpatient visit 15 minutes Lorna Ortega [facility] Gastroenterology Start: 11-03-2022 End: 11-03-2022 Patient encounter procedure II Rusty Delgado Work Phone: [facility] Work Phone: Start: 11-03-2022 End: 11-03-2022 ambulatory Lex Carroll Facility:[facility] Start: 10-26-2022 End: 10-26-2022 Departed Referred II Rusty Delgado Work Phone: [facility] Work Phone: Start: 10-26-2022 End: 10-26-2022 Patient encounter procedure II Rusty Delgado Work Phone: [facility] Work Phone: Start: 10-26-2022 End: 10-26-2022 ambulatory II Rusty Delgado Work Phone: [facility] Work Phone: Start: 09-21-2022 End: 09-21-2022 Admission to same day surgery center II Rusty Delgado Work Phone: [facility] Work Phone: Start: 09-21-2022 End: 09-21-2022 ambulatory II Rusty Delgado Work Phone: [facility] Work Phone: Start: 02-13-2017 End: 02-13-2017 Ambulatory TANISHA CHEMA [facility] Start: 01-04-2017 End: 01-04-2017 Ambulatory TANISHA VAZQUEZ [facility] Start: 12-10-2016 End: 12-10-2016 Ambulatory COY BLANCHARD [facility] Start: 11-01-2016 End: 11-02-2016 Ambulatory ROYCE ARAIZA [facility] Start: 10-17-2016 End: 10-17-2016 Ambulatory TANISHA VAZQUEZ [facility] Procedures Date Procedure Procedure Detail Performing Clinician [...] 05-12-2032 Screening for malignant neoplasm of colon [facility] Start: 05-26-2024 Urine screening for protein Diabetes: Urine Protein Screening [facility] Start: 05-24-2024 Glaucoma screening Diabetes: Retinopathy Screening [facility] Start: 08-24-2023 Hemoglobin A1c measurement Diabetes: Hemoglobin A1C [facility] Start: 06-13-2023 [facility] Start: 06-13-2023 [facility] Start: 06-13-2023 End: 06-13-2023 Patient encounter procedure 06/13/2023 1:30 PM EST Procedure Visit [facility] Janneth Villegas DO [address] [facility] [address] [place] [address] [facility] Start: 06-09-2023 End: 06-09-2023 Patient encounter procedure 06/09/2023 10:30 AM EST Office Visit [facility] [address] [facility] [address] [place] [id number] Janneth Villegas, DO [address] [place] [address] [facility] Start: 05-26-2023 Medicare Annual Wellness (AWV) Medicare Annual Wellness (AWV) [facility] Start: 05-23-2023 [facility] Start: 02-23-2023 Hemoglobin A1c measurement Diabetes: Hemoglobin A1C [facility] Start: 11-03-2022 [facility] Start: 11-03-2022 Ultrasound elastography of liver DH Fibroscan (Not Applicable) [facility] Start: 10-26-2022 Ultrasound elastography of liver DH Fibroscan (Not Applicable) [facility] Start: 10-26-2022 [facility] Start: 09-21-2022 Hepatitis B core antibody measurement [facility] Start: 09-21-2022 End: 09-21-2022 [facility] Start: 1972 Urine screening for protein Diabetes: Urine Protein Screening [facility] Start: 08-03-1959 Pneumococcal Vaccine: 65+ Years (1 - PCV) Pneumococcal Vaccine: 65+ Years (1 - PCV) [facility] Start: 1955 Medicare Annual Wellness (AWV) Medicare Annual Wellness (AWV) [facility] Start: 1955 Screening for malignant neoplasm of colon [facility] Actin smooth muscle IgG Ab [Units/volume] in Serum [facility] Alpha 1 antitrypsin [Mass/volume] in Serum or Plasma [facility] Alpha 1 antitrypsin phenotyping [Identifier] in Serum or Plasma by Immunofixation [facility] Cefuroxime free [Mass/volume] in Serum or Plasma [facility] Ceruloplasmin [Mass/volume] in Serum or Plasma [facility] Hepatitis B virus galindo rface Ab [Presence] in Serum [facility] Hepatitis B virus galindo rface Ag [Presence] in Serum or Plasma by Immunoassay [facility] Hepatitis C virus Ig G Ab [Presence] in Serum or Plasma by Immunoassay [facility] Mitochondria M2 IgG Ab [Units/volume] in Serum [facility] Patient referral [facility] Work Phone: Immunizations Immunization Date Immunization Notes Care Provider [facility] 01-24-2023 influenza virus vaccine, unspecified formulation [employer] [facility] 04-30-2022 zoster vaccine recombinant Janneth Itzkowitz DO Work Phone: [facility] 03-22-2022 tetanus toxoid, reduced diphtheria toxoid, and acellular pertussis vaccine, adsorbed Janneth Itzkowitz DO Work Phone: [facility] 02-01-2022 influenza virus vaccine, unspecified formulation [employer] [facility] 02-01-2022 influenza, high dose seasonal, preservative-free Janneth Itzkowitz DO Work Phone: [facility] 02-17-2021 influenza virus vaccine, unspecified formulation [employer] [facility] 02-17-2021 influenza, high dose seasonal, preservative-free Janneth Itzkowitz DO Work Phone: [facility] 02-13-2017 influenza virus vaccine, unspecified formulation [employer] [facility] 02-13-2017 influenza, injectabl e, quadrivalent, contains preservative Janneth Itzkowitz DO Work Phone: [facility] 02-01-2016 influenza virus vaccine, unspecified formulation [employer] [facility] 02-01-2016 influenza, seasonal, injectable Janneth Itzkowitz DO Work Phone: [facility] 03-24-2015 zoster vaccine, live Janneth Itzkowitz DO Work Phone: [facility] 02-10-2015 influenza virus vaccine, unspecified formulation [employer] [facility] 02-10-2015 influenza, seasonal, injectable Janneth Itzkowitz DO Work Phone: [facility] 01-14-2014 influenza virus vaccine, unspecified formulation Jourdan ARRIAZA [facility] 01-14-2014 influenza, seasonal, injectable Janneth Itzkowitz DO Work Phone: [facility] 01-23-2013 influenza virus vaccine, unspecified formulation Janneth Itzkowitz DO Work Phone: [facility] Payers Date Payer Category Payer Self-pay 2022 Medicare AETNA MEDICARE A DVANTAGE AETNA MEDICARE REPLACEMENT [id number] 2022-Present [address] [place] [address] [id number] 2002 Private Health Insurance [id number] 1953 Unknown [id number] 2.16.840.1.235881.3.579.2. 727 1953 Unknown [id number] 2..840.1.431288.3.579.2. 1258 1953 Unknown [id number] 2..840.1.392333.3.579.2. 1258 1953 Unknown [id number] 2.16.840.1.797288.3.579.2. 1258 1953 Unknown [id number] 2.16.840.1.154164.3.579.2. 1258 1953 Unknown [id number] 2.16.840.1.011390.3.579.2. 1258 1953 Unknown [id number] 2.16.840.1.926543.3.579.2. 1259 1953 Unknown [id number] 2.16.840.1.544944.3.579.2. 1258 1953 Unknown [id number] 2.16.840.1.343348.3.579.2. 1258 1953 Unknown [id number] 2.16.840.1.610275.3.579.2. 1258 1953 Unknown [id number] 2.16.840.1.669356.3.579.2. 1258 1953 Unknown [id number] 2.16.840.1.979514.3.579.2. 1258 1953 Unknown [id number] 2.16.840.1.680865.3.579.2. 1258 1953 Unknown [id number] 2..840.1.026292.3.579.2. 1258 1953 Unknown [id number] 2.16.840.1.897276.3.579.2. 1258 1953 Unknown [id number] 2.16.840.1.784141.3.579.2. 1259 Unknown [id number] 2.16.840.1.646906.3.579.2. 531 Unknown [id number] 2.16.840.1.775636.3.579.2. 531 Unknown [id number] 2.16.840.1.538304.3.579.2. 531 Unknown [id number] 2.16.840.1.784001.3.579.2. 531 Unknown [id number] 2.16.840.1.450744.3.579.2. 531 Unknown [id number] 2.16.840.1.865551.3.579.2. 531 Unknown [id number] 2.16.840.1.861801.3.579.2. 531 Unknown [id number] 2.16.840.1.769843.3.579.2. 531 Unknown [id number] 2.16.840.1.804566.3.579.2. 531 Social History Date Type Detail Facility Start: 09-21-2022 End: 06-13-2023 Tobacco smoking status NHIS Ex-smoker (finding) [facility] Start: 1955 Sex Assigned At Male F [facility] Start: 05-18-2023 End: 05-31-2023 Sex Assigned At [facility] End: 04-17-1989 History of tobacco use Current smoker [facility] End: 04-17-1989 History of tobacco use Cigarette Smoker [facility] Start: 11-17-2022 Tobacco use and exposure Smokeless tobacco non-user [facility] Start: 05-18-2023 End: 05-31-2023 History of Social function [facility] Start: 1955 Sex Assigned At Not on file [facility] Tobacco smoking status No Smokin g Status Entered [facility] Goals Date Patient Goal Desired Activity /State Clinical Notes 09-21-2022 to 11-27-2023 Janneth Villegas, DO - 05/31/2023 3:15 PM ESTFredbarb Villegas, DO - 05/18/2023 2:00 PM EST Note Date & Type Note Facility 11-27-2023 Note Patient: Charles hernandez Procedure Summary Date: 11/27/23 Room / Location: [facility] Anesthesia Start: 1040 Anesthesia [...] per anesthesia protocol. No notable events documented. [facility] 11-27-2023 Note Patient: Charles hernandez Procedure Summary Date: 11/27/23 Room / Location: [facility] Anesthesia Start: 1041 Anesthesia Stop: Procedure: EGD Diagnosis: Alcoholic cirrhosis of liver with ascites (CMS/HCC) Scheduled Providers: Irena Johnson MD; Jl Kent MD; VALDEMAR Heath Responsible Provider: Jl Kent MD Anesthesia Type: MAC ASA Status: 3 Anesthesia Post [facility] Patient Monitor: direct observation Transport: uneventful Patient condition is: stable [facility] 11-27-2023 Note Patient: Charles hernandez Procedure Information Date/Time: 11/27/23 1130 Scheduled providers: Irena Johnson MD; Jl Kent MD; VALDEMAR Heath Procedure: EGD Location: [facility] Relevant Problems Cardio Denies chest [...] Plan discussed with CAA. Additional Equipment Requests [facility] 11-08-2023 Note Refills provided [facility] 10-16-2023 Note Patient said the jason vazquez has been scheduled and is on its way. Aware they have to call [facility] every time they need a refill. Have no further questions. Will no longer follow up. Darnell Razo [facility] 10/25/23 10:27 AM [facility] 10-16-2023 Note Emma MALDONADO approved through 04/10/2024, previous approval. Pt has not been on lactulose, prescribed lactulose on the same day as Xifaxan. Based on discussion with annual income for 2 people in the household is $52,000. Should qualify for PAP. Will email provider and pt portions. Carmella Olivo, PharmD, BCACP 10/16/23 1:56 PM [facility] [phone] [facility] 10-16-2023 Note Patient assistance a pplication approved through [employer].. Approval good through 04/16/2024. Patient Case ID/Approval Number: [id number]. Notified patient and will follow up to confirm shipment/delivery is scheduled. Yamini Camarillo, [facility] 10/23/23 10:11 AM [facility] 10-16-2023 Note Have received pt. Po rtion of PAP form still waiting on prescribers portion. Re faxed the forms over to GI. Send PAP forms in once prescribers portion is signed. Darnell Razo [facility] 10/20/23 1:20 PM [facility] 10-13-2023 Note I called and discuss ed the results of his labwork with the patient. With his sodium level being slightly below baseline, we will have him repeat his labs prior to EGD tomorrow. He expressed clear understanding. If he continues to have low sodium, we may need to consider holding diuretics. [facility] 10-13-2023 Note Attestation signed by [...] documentation in this note for specific details. [facility] G[facility]enterology Follow-up visit CHIEF COMPLAINT Chief Complaint Patient presents with Cirrhosis Ascites HISTORY OF PRESENT ILLNESS: Charles Blandon is [...] function of stomach (more content not included)... [facility] 09-14-[address] ordered to rule o ut chronic mesenteric ischemia [facility] 08-07-2023 Note Attestation signed by [...] % gel, Apply topically., Disp: , Rfl: wrrvqywnz-mtmvje-jytiot-petrol 5-0.25-14.4-15 % cream, APPLY TO AFFECTED AREA [...] Rfl: zolpidem (A (more content not included)... [facility] 05-31-2023 History of Present illness [...] reflux disease) History of colon polyps Hypertension ([facility]) Social History Tobacco Use Smoking status: Former [...] has been scheduled. documented in this encounter [facility] 05-18-2023 History of Present illness Narrative Images from the original note were not included. Charles Blandon 1955 Charles Blandon is a 67 y.o. male presents with chief complaint of painful hemorrhoid HPI: HPI Huber states he has a hemorrhoid for the last 5-6 weeks. He was seen by Dr. Carroll's [employer] who referred him to our office. Huber [...] reflux disease) History of colon polyps Hypertension ([facility]/HCC) Social History Tobacco Use Smoking status: Former [...] weeks for recheck documented in this encounter [facility] 05-11-2023 Evaluation note Encounter Date Diagnosis Assessment Notes Apr, Nausea (ICD-10 - R11.0) Apr, Cirrhosis of liver (ICD-10 - K74.60) Apr, Early satiety (ICD-10 - R68.81) [facility] Other 12-28-2023 Evaluation note* Encounter Date Diagnosis Assessment Notes Treatment Notes Treatment Clinical Notes Mar, Lower abdominal pain (ICD-10 - R10.30) [facility] Other 12-27-2023 Evaluation note* Encounter Date Diagnosis [...] - R68.81) Mar, Bloating (ICD-10 - R14.0) [facility] Other 07-27-2023 Evaluation note* Encounter Date Diagnosis [...] a time. Pt advised to start probiotic ([employer]) Pt RTO 3 MONTHS [facility] Other 06-07-2023 [facility] No data available for this section [facility] Evaluation noteNo assessment information available 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 [facility]* Diagnosis Onset Date Resolution Status Cirrhosis acute Dyspepsia and disorder of function of stomach acute Emesis acute Esophageal dysmotility acute [facility] Work Phone: History and physical note Author Lex Carroll [facility] September 21, 2022 8:04am Note Date/Time September 21, 2022 8:04a m [facility] [address] [place] [address] Gastroenterology H&P Signed Patient: Charles Blandon MR#: [id number] : 1955 Acct:[id number] Age/Sex: 67 / M Adm Date: 3 Loc: Room: Type: [facility] Attending Dr: Lex Carroll MD Copies to: [...] signed by Lex Carroll MD> 09/21/[address] [facility] Work Phone: History general Narrative - Reported* Type Description Date Medical History hypertension Medical History GERD Surgical History gallbladder Surgical History elbow surgery Surgical History mesh placement [facility] Other Hospital Discharge instructions Additional Instructions DISCHARGE [...] problems. -Follow up with PCP. -Office number [phone].[facility] Work Phone: Hospital Discharge instructions No data available for this section [facility] Progress note No data available for this section [facility] Summary Purpose Family History No Family [...] section and content) DATE CREATED AUTHOR 10/10/2017 [facility] DATE CREATED AUTHOR AUTHOR'S ORGANIZ ATION 07/14/2023 Kirill Redman [facility] DATE CREATED AUTHOR AUTHOR'S ORGANIZ ATION 10/06/2023 [facility] DATE CREATED AUTHOR AUTHOR'S ORGANIZ ATION 11/17/2023 [facility] EPIC DATE CREATED AUTHOR AUTHOR'S ORGANIZ ATION 12/03/2023 [facility] Care Teams (unrecognized sec tion and [...] Active Lorna Ortega APRN Attending Provider Active [employer] Relationship Specialty Start Date End Date Rusty Delgado MD [address] [facility] [address] [place] [address] PCP - Aet 04/17/22 Rusty Delgado MD [address] [facility] [address] [place] [address] PCP - General Internal Medicine 11/23/22 [employer] Relationship Specialty Start Date End Date Rusty Delgado MD [address] [facility] [address] [place] [address] PCP - [employer] 04/17/22 Rusty Delgado MD [address] [facility] [address] [place] [address] PCP - General Internal Medicine 11/23/22 Team [...] Contact General Surgery Diagnoses Unspecified hemorrhoids Procedures IN OFFICE/OUTPATIENT [facility] 60 MINUTES Lorna Ortega MD [address] [facility] [address] [place] [address] [place] [address] [facility] [address] [place] [address] Referral ID Status Reason Start Date Expiration Date V isits Requested Visits Authorized [id number] Closed Specialty Services Required 05/12/2023 11/08/2023 1 [...] BE BASED ON THE PRIMARY CLINICAL RECORDS. [employer] provides no warranty or guarantee of the accuracy or completeness of information in this document.
[2023-12-07] MEDS: FUROSEMIDE 40 MG/4 ML VIAL IVP (21:42)
[2023-12-07] MEDS: BACLOFEN 10 MG TABLET 20 MG PO (21:42)
[2023-12-07] MEDS: OMEPRAZOLE 40 MG CAPSULE.DR PO (21:42)
[2023-12-07] MEDS: RIFAXIMIN 550 MG TABLET PO (21:42)
--- NOTE | 2023-12-07 22:30 | PC.NURSE ---
pt and upset about being admitted. pt stated, what are you even doing for him that he can't do from the couch at home. RN educated patient on the doctor's orders and procedure that will take place in the morning. pt seemed okay with being here but seemed concerned about the co-pay for having to be admitted.
[2023-12-08] VITALS (13 sets, daily range): BP systolic 91–111; BP diastolic 57–72; PULSE 52–55; TEMP 36.5–36.8; O2SAT 94–99
--- OUTSIDE RECORDS SUMMARY | 2023-12-08 06:03 | XMS_ITS | CCD ---
Author Organization [facility] Care Team Providers Care Area Intelligence Technician Name Role Phone CHEMA, TANISHA Unavailable Unavailable TEODORA, ROYCE Unavailable Unavailable CHEMA, TANISHA Unavailable Unavailable COY BLANCHARD Unavailable Unavailable CHEMA, TANISHA Unavailable Unavailable CHEMA, TANISHA Unavailable Unavailable CHEMA, TANISHA Unavailable Unavailable MD Lex Carroll Attending Provider JUDITH Delgado Primary Care Provider Lorna Ortega Unavailable TALA Ortega Attending Provider JUDITH Delgado Primary Care Provider TALA Ortega Attending Provider Rusty Delgado MD Unavailable [phone] Rusty Delgado MD Primary Care Provider MD [...] Admitting Unavailable ScovannerLorna M Attending Unavailable Itzkojonathan, Janneht Attending Unavailable Itzphilomena, Janneth Admitting Unavailable Rusty Delgado Primary Care Unavailable Minh Griffith Admitting UnavailMinh Romero Attending Unavailabl e Rusty Delgado [facility] Care Unavailable ITDAPHNE, JANNETH H Attending Unavailable [...] Translations: [SULFAMETHOXAZOLE-TR IMETHOPRIM] Drug Allergy 5 AOF [facility] Repository Medications Current Medications Medication Drug [...] June 13, 2023 July 05, 2023 9:01am bdheyxq-eixstotfk-rvaj 333-133-5 MG per tablet (1 source) End: 05-18-2023 calcium-magnesium -zinc 333-133-5 MG per tablet Take 1 tablet by mouth in the morning and 1 tablet at noon and 1 tablet in the evening. Take with meals. 0 05/18/2023 Discontinued hydroCHLOROthiazide 25 mg / triamterene 37.5 mg oral capsule (10 sources) Potassium-spari ng Diuretic, Thiazide Diuretic Start: 06-13-2023 End: 07-05-2023 Triamterene-[place] chlorothiazid Discontinued CAP June 13, 2023 1:00am [...] in clinic, order placed and faxed to [facility] at [phone] [facility] 36 calls stating t hat patient is in need of an order for paracentesis. Order will need to be sent to [facility]. [facility] Orders Onlyon 12-01-2023 Orders Only [id number] Ambrosio Blandon 1955 M Date Provider Department Center 12/01/202327009-NTRQOGIBSON HAZEL GI Medical Pavi No family history on file Normal [facility] HPon 11-27-2023 HP ----- ----- Attestation signed [...] PROT B12/Folate/Iron studies: No results found for: [id number] , FOLATE , IRON , TIBC , UIBC , IRONSAT , FERRITIN ASSESSMENT AND PLAN Charles Blandon is a 68 y.o. male who has a known past medical history significant for alcoholic liver cirrhosis, Recinos's esophagus and hepatic encephalopathy is scheduled today for an EGD for esophageal varices screening. Plan: Plan for EGD today for esophageal varices secondary to liver cirrhosis. Normal [facility] POCT GLUCOSE METER UNSOLICIT ED RESULTSon 11-27-2023 Glucose [Mass/Vol] 101 mg/dL Normal 70-105 [facility] Comment on above: Order Comment: Waive d Testing in the ED is performed under the ED CLIA certificate #[id number]. Result Comment: [facility] eman Performed By: #### L [id number] #### [facility] HOSPITAL LAB (BEAKER) [address] [place] [address] 36on 11-21-2023 36 Appeal submitted Normal [facility] Orders Onlyon 11-21-2023 Orders Only [id number] Ambrosio Blandon 1955 M Date Provider Department Center 11/21/2023 BROOKLYNN ZEPEDA MP GI Medical [facility]avi No family history on file Normal [facility] Prep for Procedureon 024 Prep for Procedure [id number] Ambrosio Blandon 1955 M Date Provider Department Center 11/21/2023 IRENA SCHMIDT [facility] GISC [place] No family history on file Normal [facility] MR ABDOMEN W AND WO CONTRAST on [...] signed: Adalid Montiel. 9 Invalid Interpretation Code [facility] Orders Only11-08-2023 Orders Only [id number] Ambrosio Blandon 1955 M Date Provider Department [place] 11/08/2023 [id number], BETH GI Medical [facility]avi No family history on file Normal [facility] 11-02-2023 36 Patient's carmen jolynn to verify that Dr. Jesus will now be prescribing the Famotidine and Baclofen because the previously prescribing physician no longer will now that he is a [facility] GI patient. The preferred pharmacy is [facility] in [place]. Please advise and these orders can then be pended. Normal [facility] Orders Onlyon 11-02-2023 Orders Only [id number] Ambrosio Blandon 1955 M Date Provider Department Center 11/02/2023 [id number], [facility] GI Medical Pavi No family history on file Normal [facility] 3610-26-2023 36 I called the patient and [...] MRI of his liver on the . [facility] Orders Onlyon 10-26-2023 Orders Only [id number] Ambrosio Blandon emma 1955 M Date Provider Department Center 10/26/202356462-RGQXDGIBSON TAYLOR MP GI Medical Pavi No family history on file [facility] Telephoneon 10-26-2023 Telephone [id number] Ambrosio Blandon emma 1955 M Date Provider Department Center 10/26/202364095-ZFIGXGIBSON ESPOSITO GI Medical Pavi No family history on file [facility] Orders Onlyon 10-24-2023 Orders Only [id number] Ambrosio Blandon emma 1955 M Date Provider Department Center 10/24/2023 [id number], MAGALIS [facility] No family history on file [facility] Orders Onlyon 10-20-2023 Orders Only [id number] Ambrosio Blandon emma 1955 M Date Provider Department Center 10/20/2023 RUFINO [facility] Medical No family history on file [facility] 36on 10-18-2023 36 I called the [...] we can follow-up on his sodium level. [facility] 36 Patients called stating they were [...] from you to clarify some things. Normal [facility] Orders Onlyon 10-18-2023 Orders Only [id number] Ambrosio Blandon 1955 M Date Provider Department Center 10/18/2023 EKATERINA ALMARAZ [facility] [place]I No family history on file [facility] Telephoneon 10-18-2023 Telephone [id number] Ambrosio Blandon 1955 M Date Provider Department Center 10/18/202301109-ACYOSGIBSON TAYLOR MP GI Medical Pavi No family history on file [facility] Orders Onlyon 10-17-2023 Orders Only [id number] Ambrosio Blandon 1955 M Date Provider Department Center 10/17/202387108-HFTWVGIBSON ESPOSITO MP GI Medical Pavi No family history on file [facility] Documentationon 10-16-2023 Documentation [id number] Ambrosio Blandon 1955 M Date Provider Department Center 10/16/2023 CARMELLA NICOLE [facility]avi No family history on file Reason for Visit and Comments: Specialty Pharmacy Note: Xifaxan PAP [Other] Normal [facility] Prep for Procedureon 024 Prep for Procedure [id number] Ambrosio Blandon 1955 M Date Provider Department Center 10/16/2023 Vahid-IRENA JOHNSON [facility] GE[place]GEI No family history on file Normal [facility] BASIC METABOLIC PANELon 09-16 Anion gap [Moles/Vol] 14 mmol/L Normal 7-20 [facility] Comment on above: Performed By: #### L [id number] #### [facility] HOSPITAL LAB (BEAKER) [address] [place] [address] Calcium [Mass/Vol] 9.1 mg/dL Normal 8.6-10.3 [facility] Comment on above: Performed By: #### L [id number] #### [facility] HOSPITAL LAB (BEAKER) [address] [place] [address] Chloride [Moles/Vol] 96 mmol/L Low 98-107 [facility] Comment on above: Performed By: #### L [id number] #### [facility] HOSPITAL LAB (BEAKER) [address] [place] [address] CO2 [Moles/Vol] 22 mmol/L Normal 21-31 [facility] Comment on above: Performed By: #### L [id number] #### [facility] HOSPITAL LAB (BEAKER) [address] [place] [address] Creatinine [Mass/Vol] 1.00 mg/dL Normal 0.70-1.30 [facility] Comment on above: Performed By: #### L [id number] #### [facility] LAB (BEAKER) [address] [place] [address] GLOMERULAR FILTRATION RATE ML/MIN/1.73 SQ M.PREDICTED 81.0 mL/min/1.73m*2 Normal >60.0 [facility] Comment on above: Result Comment: The [facility]???s estimated glomerular filtration rate (eGFR) will no [...] individuals. Performed By: #### L AB15 #### [facility] LAB ([facility]) [address] [place] [address] Glucose [Mass/Vol] 108 mg/dL High 70-100 [facility] Comment on above: Performed By: #### L [id number] #### [facility] LAB ([facility]) [address] [place] [address] Potassium [Moles/Vol] 4.8 mmol/L Normal 3.5-5.1 [facility] Comment on above: Performed By: #### L AB15 #### [facility] LAB ([facility]) [address] [place] [address] Sodium [Moles/Vol] 127 mmol/L Low 136-145 [facility] Comment on above: Performed By: #### L [id number] #### [facility] LAB ([facility]) [address] [place] [address] Urea nitrogen [Mass/Vol] 13 mg/dL Normal 7-25 [facility] Comment on above: Performed By: #### L [id number] #### [facility] LAB ([facility]) [address] [place] [address] UREA NITROGEN/CREATININE (MASS RATIO) IN SER/PLAS 13.0 Normal [facility] Comment on above: Performed By: #### L [id number] #### [facility] LAB ([facility]) [address] [place] [address] CBCon 10-13-2023 Erythrocyte distribution width (RBC) [Ratio] 14.2 % Normal 11.5-15.0 [facility] Comment on above: Performed By: #### L [id number] #### [facility] ([facility]) [address] [place] [address] ERYTHROCYTE MEAN CORPUSCULAR HEMOGLOBIN CONCENTRATION (G/DL) BY AUTOMATED 34.5 g/dL Normal 32.0-35.0 [facility] Comment on above: Performed By: #### L [id number] #### [facility] ([facility]) [address] [place] [address] Hematocrit (Bld) [Volume fraction] 38.0 % Low 39.0-55.0 [facility] Comment on above: Performed By: #### L [id number] #### [facility] ([facility]) [address] [place] [address] Hemoglobin (Bld) [Mass/Vol] 13.1 g/dL Normal 13.0-17.0 [facility] Comment on above: Performed By: #### L [id number] #### [facility] LAB (BEAKER) [address] [place] [address] MCH (RBC) [Entitic mass] 34.4 pg High 27.0-33.0 [facility] Comment on above: Performed By: #### L [id number] #### [facility] LAB (BEAKER) [address] [place] [address] MCV (RBC) [Entitic vol] 99.7 fL High 82.0-98.0 [facility] Comment on above: Performed By: #### L [id number] #### [facility] LAB (BEAKER) [address] [place] [address] PLATELETS (10*3/UL) IN BLOOD AUTOMATED COUNT 212 10*3/uL Normal 150-400 [facility] Comment on above: Performed By: #### L [id number] #### [facility] LAB (BEAKER) [address] [place] [address] RBC (Bld) [#/Vol] 3.81 10*6/uL Low 4.20-5.70 [facility] Comment on above: Performed By: #### L [id number] #### [facility] LAB ([facility]) [address] [place] [address] WBC (Bld) [#/Vol] 6.20 10*3/uL Normal 4.00-10.60 [facility] Comment on above: Performed By: #### L [id number] #### [facility] LAB ([facility]) [address] [place] [address] HEPATIC FUNCTION PANELon Albumin [Mass/Vol] 3.4 g/dL Low 3.5-5.7 [facility] Comment on above: Performed By: #### L [id number] #### [facility] LAB ([facility]) [address] [place] [address] ALP [Catalytic activity/Vol] 114 U/L High 34-104 [facility] Comment on above: Performed By: #### L [id number] #### [facility] LAB ([facility]) [address] [place] [address] ALT [Catalytic activity/Vol] 23 U/L Normal 7-52 [facility] Comment on above: Performed By: #### L [id number] #### [facility] ([facility]) [address] [place] [address] AST [Catalytic activity/Vol] 48 U/L High 13-39 [facility] Comment on above: Performed By: #### L [id number] #### [facility] ([facility]) [address] [place] [address] Bilirubin [Mass/Vol] 1.5 mg/dL High 0.3-1.0 [facility] Comment on above: Performed By: #### L [id number] #### [facility] LAB ([facility]) [address] [place] [address] Magnesium [Mass/Vol] 0.5 mg/dL High 0-0.2 [facility] Comment on above: Performed By: #### L [id number] #### [facility] LAB (BEAKER) [address] [facility] [place] [address] Protein [Mass/Vol] 7.8 g/dL Normal 6.0-8.3 [facility] Comment on above: Performed By: #### L [id number] #### [facility] LAB (BEAKER) [address] [place] [place] [address] Labon 10-13-2023 Lab [id number] Ambrosio Blandon 1955 M Date Provider Department Center 10/13/2023 2244-[facility] MP LAB RESOURCE MP DRAW Medical Pavi No family history on file Normal [facility] Office Visiton 10-13-2023 Follow-up visit [id number] Ambrosio Blandon 1955 M Date Provider Department [place] 10/13/2023 298-IRENA JOHNSON MP GI Medical Pavi No family history on file Level of Service:16380 [place] OFFICE/OUTPATIENT ESTABLISHED HIGH MDM 40 MIN (GC) Reason for Visit and Comments: Cirrhosis [239] Ascites [295] Normal [facility] PROTIME-INRon 10-13-2023 INR IN PPP BY COAGULATION ASSAY 1.17 High 0.90-1.10 [facility] Comment on above: Result Comment: ACCC P [...] 1995;108:231S-246S. Performed By: #### L [id number] #### [facility] LAB (BEAKER) [address] [place] [address] PROTHROMBIN TIME (PT) IN PPP BY COAGULATION ASSAY 14.9 Seconds High 12.3-14.8 [facility] Comment on above: Performed By: #### L [id number] #### [facility] LAB (BEAKER) [address] [place] [address] Orders Onlyon 10-06-2023 Orders Only [id number] Ambrosio Blandon 1955 M Date Provider Department Center 10/06/2023 [id number], HISTORICAL MP GI Medical Pavi No family history on file Normal [facility] Mayito 10-03-2023 L Specimen: [id number] Received: 10/04/23 Status: HUSAM Req Num: [id number] Spec Type: Cytology Subm Dr: Arias Jesus MD Tissues: A ASCITES (ASC) Procedures: HE/2, Gross/Micro L4, Cyto Prepstain, PAPSTN Age/ Patient Sex Location Account Attending Physician Charles Blandon 68/M LABELL [id number] Ward Stern MD SPEC NUM: [id number] RECD: 10/04/23 STATUS: HUSAM REMartin NUM: [id number] WEN: 10/03/[address]: Arias Jesus MD ENTERED: 10/04/[address] [facility] [address]: Babs,Lab Ward Stern MD SPEC TYPE: Cytology DEPT: MARLEN VALDEZ ENTERED BY: [id number] RECV BY: [id number] ORDERED: HE/2, Gross/Micro L4, Cyto Prepstain, PAPSTN ORDERED: HE/2, Gross/Micro L4, Cyto Prepstain, PAPSTN Pathological Diagnosis Ascites fluid cytology: Atypical cells noted. Clinical Information cirrhosis, liver lesion Gross Description Received is 1000 ml yellow cloudy unfixed fluid for cytology said to have been obtained as abdominal ascites fluid. ThinPrep and cell block preparations are prepared for microscopic examination. (ME/nh) CPT Codes 44930 Specimen: [id number] Received: 10/04/23-1336 Status: HUSAM Coffey Num: [id number] Spec Type: Cytology Subm Dr: Arias Jesus MD Tissues: A ASCITES (ASC) Procedures: HE/2, Gross/Micro L4, Cyto Prepstain, PAPSTN Patient: Charles Blandon [id number] (Continued) Signed (signature on file) Linette Bean MD 06/20/24 1340 Normal [facility] Orders Onlyon 09-27-2023 Orders Only [id number] Ambrosio Blandon 1955 M Date Provider Department Center 09/27/2023 KatieJEREMYHARSHA PINEDA [facility] GI [facility] No family history on file Normal [facility] CREATININE, SERUMon 09-25-19 24 Creatinine [Mass/Vol] 1.06 mg/dL Normal 0.70-1.30 [facility] Comment on above: Performed By: #### L [id number] ####[facility] LAB (BEAKER)[address] [place] [address] GLOMERULAR FILTRATION RATE ML/MIN/1.73 SQ M.PREDICTED 75.5 mL/min/1.73m*2 Normal >60.0 [facility] Comment on above: Result Comment: The [facility]???s estimated glomerular filtration rate (eGFR) will no [...] of individuals. Performed By: #### L [id number] ####[facility] LAB (BEAKER)[address] [place] [address] CTA ABDOMEN PELVIS W IV CONT RUST 09-25-2023 CTA ABDOMEN PELVIS W IV CONTRAST [...] Gan MD. Not Vldtd Invalid Interpretation Code [facility] Labon 09-25-2023 Lab [id number] Ambrosio Blandon 1955 M Date Provider Department Center 09/25/2023 2245-[facility] OPD LAB RESOURCE [facility] OPD CA Medical C No family history on file Normal [facility] Orders Onlyon 09-23-2023 Orders Only [id number] Ambrosio Blandon 1955 M Date Provider Department Center 09/23/2023 204-HARSHA CONNER [facility] GI [facility] No family history on file Normal [facility] Orders Onlyon 09-15-2023 Orders Only [id number] Jamia,Wil emma 1955 M Date Provider Department Center 09/15/2023 BROOKLYNN ZEPEDA GI Medical Pavi No family history on file Normal [facility] Orders Onlyon 09-14-2023 Orders Only [id number] Jamia,Wil emma 1955 M Date Provider Department Center 09/14/2023 BROOKLYNN ZEPEDA GI Medical Pavi No family history on file Normal [facility] Orders Onlyon 08-28-2023 Orders Only [id number] Jamia,Ambrosio emma 1955 M Date Provider Department Center 08/28/2023 [id number], HISTORICAL GI Medical Pavi No family history on file [facility] Orders Onlyon 08-24-2023 Orders Only [id number] Jamia,Wil emma 1955 M Date Provider Department Center 08/24/2023 I0655-[id number], HISTORICAL GI Medical Pavi No family history on file [facility] 29on 08-09-2023 29 Addended by: ARIAS JESUS on: 08/09/2023 12:50 PM Modules accepted: Orders Normal [facility] Orders Onlyon 08-09-2023 Orders Only [id number] Ambrosio Blandon emma 1955 M Date Provider Department Center 08/09/2023 [id number]-[id number] SANTIZO GI Medical Pavi No family history on file [facility] Office Visiton 08-07-2023 Follow-up visit [id number] Jamia,Ambrosio emma 1955 M Date Provider Department Center 08/07/2023 294-ARIAS JESUS GI Medical [facility]avi No family history on file Level of Service:94996 [place] OFFICE/OUTPATIENT NEW LOW MDM 30 MINUTES (GC) Reason for Visit and Comments: New Patient [632] Weight Loss [441751] - 30 pound weight loss since . Pt recently had surgery for 3 polyps removed and 1 hemorrhoid removal. Dyskenisia of esophgaus [Other] Nausea [70] Vomiting [120] - Pt has a urge to but does not vomit. Normal [facility] Mayito 06-13-2023 L Specimen: [id number] Received: 06/14/23 Status: HUSAM Mirmartin Num: [id number] Spec Type: Surgical Subm Dr: Janneth Villegas DO Tissues: A Hemorrhoids (HEMORRHOID 9:00) Procedures: HE, Gross/Micro L3 Age/ Patient Sex Location Account Attending Physician Charles Blandon 67/M [place] [id number] Janneth Villegas DO SPEC NUM: [id number] RECD: 06/14/23 STATUS: HUSAM COFFEY NUM: [id number] WEN: 06/13/[address]: Janneth Villegas DO [...] cut surfaces with diffusely dilated blood-filled spaces. Electrical Worker sections are submitted in 1 cassette as follows: A1 - 1 manufacturers representative section from each fragment to demonstrate change in mucosal types of the largest fragment CPT Codes 81753 Specimen: [id number] Received: 06/14/23-753 Status: HUSAM Coffey Num: [id number] Spec Type: Surgical Subm Dr: Janneth Villegas DO Tissues: A Hemorrhoids (HEMORRHOID 9:00) Procedures: FAMILIA, Clark/Andi L3 Patient: Charles Blandon [id number] (Continued) Signed (signature on file) Linette Bean MD 06/27/239 Normal [facility] Automated basophil %Ordered By: Janneth Villegas on 06-02-2023 Basophils/100 WBC (Bld) 0.7 % Normal . [facility] Comment on above: Performed By: #### B MP, CBC #### [address] Automated basophil countOrde red By: Janneth Villegas on 06-02-2023 Basophils (Bld) [#/Vol] 0.0 10*3/uL Normal 0.0-0.2 [facility] Comment on above: Result Comment: PERF ORMED BY: [place] [address] PATHOLOGIST ARTERIAL EMBALMER CLARK LEARY M.D. Performed By: #### B MP, CBC #### [address] Automated blood monocyte cou ntOrdered By: Janneth Villegas on 06-02-2023 Monocytes (Bld) [#/Vol] 0.9 10*3/uL High 0.0-0.8 [facility] Comment on above: Performed By: #### B MP, CBC #### [address] Automated eosinophil %Ordere d By: Janneth Villegas on 06-02-2023 Eosinophils/100 WBC (Bld) 1.9 % Normal . [facility] Comment on above: Performed By: #### B MP, CBC #### [address] Automated eosinophil countOr dered By: Janneth Villegas on 06-02-2023 Eosinophils (Bld) [#/Vol] 0.1 10*3/uL Normal 0.0-0.45 [facility] Comment on above: Performed By: #### B MP, CBC #### [address] Automated monocyte %Ordered By: Janneth Villegas on 06-02-2023 Monocytes/100 WBC (Bld) 15.7 % Normal . [facility] Comment on above: Performed By: #### B MP, CBC #### [address] Automated neutrophil %Ordere d By: Janneth Villegas on 06-02-2023 Neutrophils/100 WBC (Bld) 68.5 % Normal . [facility] Comment on above: Performed By: #### B MP, CBC #### [address] Basic Metabolic Panelon 05-18 GFR/1.73 sq M.predicted MDRD (S/P/Bld) [Vol rate/Area] mL/min/{1.73_m2} Normal [facility] Comment on above: Performed By: #### B MP, CBC #### [address] Calcium [Mass/volume] in Ser um or PlasmaOrdered By: Janneth Villegas on 06-02-2023 Calcium [Mass/Vol] 8.6 mg/dL Normal 8.6-10.3 [facility] Comment on above: Result Comment: PERF ORMED BY: [place] [address] PATHOLOGIST ARTERIAL EMBALMER CLARK LEARY M.D. Performed By: #### B MP, CBC #### [address] Carbon dioxide, total [Moles /volume] in Serum or PlasmaOrdered By: Janneth Villegas on 06-02-2023 CO2 [Moles/Vol] 27.3 mmol/L Normal 21.0-31.[address] [facility] Comment on above: Performed By: #### B MP, CBC #### [address] Chloride [Moles/volume] in S mateo or PlasmaOrdered By: Janneth Villegas on 06-02-2023 Chloride [Moles/Vol] 96 mmol/L Low 98-107 [facility] Comment on above: Performed By: #### B MP, CBC #### [address] Complete Blood Count Auto Di ffon 06-02-2023 Mean Corpuscular HGB Conc 35.2 g/dL Normal 32.5-35.6 [facility] Comment on above: Performed By: #### B MP, CBC #### [place] [id number] [place] NRBC% 0.1 /100{WBC} Normal 0-0.5 [facility] Comment on above: Performed By: #### B MP, CBC #### [facility] [address] [place], [place] [address] Creatinine [Mass/volume] in Serum or PlasmaOrdered By: Janneth Villegas on 06-02-2023 Creatinine [Mass/Vol] 1.07 mg/dL Normal 0.70-1.30 [facility] Comment on above: Performed By: #### B MP, CBC #### [facility] [address] [place] [address] ECG 12 lead ECGon 06-02-2023 ECG 12 lead ECG [facility] [address] [place] [address] Electrocardiograph Report Signed Patient: Charles Blandon MR#: [id number] 66 : 1955 Acct:[id number] Age/Sex: 67 / M ADM Date: 06/02/23 Loc: Room: Type: [facility] Attending Dr: Janneth Villegas DO Ordering [...] previous ECGs available Confirmed by Gurpreet Dyson ([id number]) on 06/02/2023 6:21:10 PM Referred By: VENKAT VILLEGAS Electronically Signed By:Gurpreet Dyson Transcribed By: MUS Signed By Gurpreet Dyson MD 06/02/23 1821 Normal [facility] Erythrocyte distribution wid th [Ratio] by Automated countOrdered By: Janneth Villegas on 06-02-2023 Erythrocyte distribution width (RBC) [Ratio] 13.8 % Normal 12.0-14.8 [facility] Comment on above: Performed By: #### B MP, CBC #### [facility] [address] [place] [address] [place] Erythrocytes [#/volume] in B lood by Automated countOrdered By: Janneth Villegas on 06-02-2023 RBC (Bld) [#/Vol] 3.45 10*6/uL Low 3.90-5.60 [facility] Comment on above: Performed By: #### B MP, CBC #### [facility] [address] Glucose [Mass/volume] in Ser um or PlasmaOrdered By: Janneth Villegas on 06-02-2023 Glucose [Mass/Vol] 132 mg/dL High 70-100 [facility] Comment on above: ADA recommended refe rence rangeRandom Glucose Reference Range is dependent on time and content of last meal. Glucose of more than 200 mg/dL in a nonstressed, ambulatory subject supports the diagnosis of Diabetes Mellitus. Result Comment: [place] om Glucose Reference Range is dependent on time and content of last meal. Glucose of more than 200 mg/dL in a nonstressed, ambulatory subject supports the diagnosis of Diabetes Mellitus. ADA recommended reference range Performed By: #### B MP, CBC #### [facility] [address] [place] [address] [place] Hematocrit [Volume Fraction] of Blood by Automated countOrdered By: Janneth Villegas on 06-02-2023 Hematocrit (Bld) [Volume fraction] 35.5 % Low 38.8-50.0 [facility] Comment on above: Performed By: #### B MP, CBC #### [facility] [address] [place] [address] [place] Hemoglobin [Mass/volume] in BloodOrdered By: Janneth Villegas on 06-02-2023 Hemoglobin (Bld) [Mass/Vol] 12.5 g/dL Low 13.0-17.0 [facility] Comment on above: Performed By: #### B MP, CBC #### [address] Leukocytes [#/volume] correc jamila for nucleated erythrocytes in Blood by Automated counOrdered By: Janneth Villegas on 06-02-2023 WBC corrected for nucl RBC Auto (Bld) [#/Vol] 5.7 10*3/uL 4.1-10.5 [facility] Leukocytes [#/volume] in Blo od by Automated countOrdered By: Janneth Villegas on 06-02-2023 WBC (Bld) [#/Vol] 5.7 10*3/uL Normal 4.1-10.5 [facility] Comment on above: Performed By: #### B MP, CBC #### [address] Lymphocytes [#/volume] in Bl ood by Automated countOrdered By: Janneth Villegas on 06-02-2023 Lymphocytes (Bld) [#/Vol] 0.7 10*3/uL Low 1.00-4.8 [facility] Comment on above: Performed By: #### B MP, CBC #### [facility] [address] [place] [address] Lymphocytes/100 leukocytes i n Blood by Automated countOrdered By: Janneth Villegas on 06-02-2023 Lymphocytes/100 WBC (Bld) 13.2 % Normal . [facility] Comment on above: Performed By: #### B MP, CBC #### [facility] [address] [place] [address] MCH [Entitic mass] by Automa jamila countOrdered By: Janneth Villegas on 06-02-2023 MCH (RBC) [Entitic mass] 36.2 pg High 27.5-35.2 [facility] Comment on above: Performed By: #### B MP, CBC #### [facility] [address] [place] [address] MCHC Auto (RBC) [Mass/Vol]Or dered By: Janneth Villegas on 06-02-2023 MCHC (RBC) [Mass/Vol] 35.2 g/dL 32.5-35.6 [facility] MCV [Entitic volume] by Auto mated countOrdered By: Janneth Villegas on 06-02-2023 MCV (RBC) [Entitic vol] 102.9 fL High 83.5-101 [facility] Comment on above: Performed By: #### B MP, CBC #### [facility] [address] Neutrophils [#/volume] in Bl ood by Automated countOrdered By: Janneth Villegas on 06-02-2023 Neutrophils (Bld) [#/Vol] 3.9 10*3/uL Normal 1.8-7.7 [facility] Comment on above: Performed By: #### B MP, CBC #### [address] No Panel InformationOrdered By: Janneth Villegas on 06-02-2023 Estimated GFR (CKD-EPI) > 60.0 mL/Min [facility] Creatinine Clearance (Chem N/A [facility] Nucleated erythrocytes [Pres ence] in Blood by Automated countOrdered By: Janneth Villegas on 06-02-2023 Nucleated RBC Auto Ql (Bld) 0.1 /100{WBC} 0-0.5 [facility] Platelet mean volume [Entiti c volume] in Blood by Automated countOrdered By: Janneth Villegas on 06-02-2023 Platelet mean volume (Bld) [Entitic vol] 8.1 fL Normal 6.6-10.1 [facility] Comment on above: Performed By: #### B MP, CBC #### [facility] [address] [place] [address] Platelets [#/volume] in Bloo d by Automated countOrdered By: Janneth Villegas on 06-02-2023 Platelets (Bld) [#/Vol] 153 10*3/uL Normal 150-450 [facility] Comment on above: Performed By: #### B MP, CBC #### [place] [address] [place] Potassium [Moles/volume] in Serum or PlasmaOrdered By: Janneth Villegas on 06-02-2023 Potassium [Moles/Vol] 4.8 mmol/L Normal 3.5-5.1 [facility] Comment on above: Performed By: #### B MP, CBC #### [address] Serum or plasma anion gap de terminationOrdered By: Janneth Villegas on 06-02-2023 Anion gap [Moles/Vol] 13.5 mmol/L Normal 6.0-15.0 [facility] Comment on above: Performed By: #### B BRADLEY, CBC #### [address] Sodium [Moles/volume] in Ser um or PlasmaOrdered By: Janneth Villegas on 06-02-2023 Sodium [Moles/Vol] 132 mmol/L Low 136-145 [facility] Comment on above: Performed By: #### B BRADLEY, CBC #### [address] Urea nitrogen [Mass/volume] in Serum or PlasmaOrdered By: Janneth Villegas on 06-02-2023 Urea nitrogen [Mass/Vol] 12 mg/dL Normal 7-25 [facility] Comment on above: Performed By: #### B BRADLEY, CBC #### [address] NM gastric emptying studyon 04-26-2023 NM gastric emptying study [facility] [place] [address] Nuclear Medicine Report Signed Patient: Charles Blandon MR#: [id number] 66 : 1955 Acct:[id number] Age/Sex: 67 / M ADM Date: 04/26/23 Loc: [place] Room: Type: [facility] Attending Dr: Lorna Ortega APRN Copies [...] Alvarez Jr., D.OAshley04/26/2023 10:18 AM Dictation Location: [place] [address] Transcribed By: [facility] 04/26/23 1018 Dictated By: Morales Alvarez Jr, DO 04/26/23 1017 Signed By: 04/26/23 1018 Normal [facility] Albumin [Mass/volume] in Ser um or Plasma by Bromocresol green (BCG) dye binding methoOrdered By: Lorna Ortega on 04-12-2023 Albumin BCG dye [Mass/Vol] 3.0 g/dL 3.5-5.7 [facility] Bilirubin.total [Mass/volume ] in Serum or PlasmaOrdered By: Lorna Ortega on 04-12-2023 Bilirubin [Mass/Vol] 1.3 mg/dL High 0.3-1.0 [facility] Comment on above: Samples from patient [...] Bilirubin. Performed By: #### C MP #### [address] Calcium [Mass/volume] in Ser um or PlasmaOrdered By: Lorna Ortega on 04-12-2023 Calcium [Mass/Vol] 8.3 mg/dL Low 8.6-10.3 [facility] Comment on above: Order Comment: Reaso n for Exam Cirrhosis of liver Performed By: #### C MP #### [facility] [address] [place] [id number] [place] Carbon dioxide, total [Moles /volume] in Serum or PlasmaOrdered By: Lorna Ortega on 04-12-2023 CO2 [Moles/Vol] 27.3 mmol/L Normal 21.0-31.[address] [facility] Comment on above: Order Comment: Reaso n for Exam Cirrhosis of liver Performed By: #### C MP #### [facility] [address] [place] [id number] [facility] Comprehensive Metabolic Pane mayito 04-12-2023 Albumin [Mass/Vol] 3.371677 g/dL Low 3.5-5.7 g/dL [facility] Bilirubin [Mass/Vol] 1.8078065 mg/dL High 0.3- 1.0 mg/dL [facility] Calcium [Mass/Vol] 8.5565504 mg/dL Low 8.6-10 .3 mg/dL [facility] CO2 [Moles/Vol] 27.97575614 mmol/L Normal 21.0-3 1.0 mmol/L [facility] Creatinine [Mass/Vol] 0.89426374 mg/dL Normal 0. 70-1.30 mg/dL [facility] Potassium [Moles/Vol] 5.50252012 mmol/L Normal 3 .5-5.1 mmol/L [facility] Protein [Mass/Vol] 6.038962 g/dL Low 6.4-8.9 g/dL [facility] Comprehensive Metabolic Panel 3.3 g/dL [facility] Albumin [Mass/Vol] 3.0 g/dL Low 3.5-5.7 [facility] Comment on above: Order Comment: Reaso n for Exam Cirrhosis of liver Performed By: #### C MP #### [facility] [address] GFR/1.73 sq M.predicted MDRD (S/P/Bld) [Vol rate/Area] mL/min/{1.73_m2} Normal [facility] Comment on above: Order Comment: Reaso n for Exam Cirrhosis of liver Performed By: #### C MP #### [facility] [address] Comprehensive Metabolic Pane lOrdered By: Lorna Ortega on 04-12-2023 Albumin/Globulin [Mass ratio] 0.9 {ratio} Normal [facility] Comment on above: Order Comment: Reaso n for Exam Cirrhosis of liver Performed By: #### C MP #### [facility] [address] ALP [Catalytic activity/Vol] 158 U/L High 34-104 [facility] Comment on above: Order Comment: Reaso n for Exam Cirrhosis of liver Result Comment: PERF ORMED BY: [place] [address] PATHOLOGIST ARTERIAL EMBALMER CLARK LEARY M.D. Performed By: #### C MP #### [facility] [address] [place], [place] [id number] [facility] ALT [Catalytic activity/Vol] 35 U/L Normal 7-52 [facility] Comment on above: Order Comment: Reaso n for Exam Cirrhosis of liver Performed By: #### C MP #### [facility] [address] [place] [id number] [place] AST [Catalytic activity/Vol] 76 U/L High 13-39 [facility] Comment on above: Order Comment: Reaso n for Exam Cirrhosis of liver Performed By: #### C MP #### [facility] [address] [place] [address] [place] Chloride [Moles/Vol] 95 mmol/L Low 98-107 [facility] Comment on above: Order Comment: Reaso n for Exam Cirrhosis of liver Performed By: #### C MP #### [facility] [address] Glucose [Mass/Vol] 94 mg/dL Normal 70-100 [facility] Comment on above: ADA recommended refe rence rangeRandom Glucose Reference Range is dependent on time and content of last meal. Glucose of more than 200 mg/dL in a nonstressed, ambulatory subject supports the diagnosis of Diabetes Mellitus. Order Comment: Reaso n for Exam Cirrhosis of liver Result Comment: [place] om Glucose Reference Range is dependent on time and content of last meal. Glucose of more than 200 mg/dL in a nonstressed, ambulatory subject supports the diagnosis of Diabetes Mellitus. ADA recommended reference range Performed By: #### C MP #### [facility] [address] Sodium [Moles/Vol] 127 mmol/L Low 136-145 [facility] Comment on above: Order Comment: Reaso n for Exam Cirrhosis of liver Performed By: #### C MP #### [facility] [address] [place] [address] [place] Urea nitrogen [Mass/Vol] 9 mg/dL Normal 7-25 [facility] Comment on above: Order Comment: Reaso n for Exam Cirrhosis of liver Performed By: #### C MP #### [facility] [address] [place] [address] [place] Creatinine [Mass/volume] in Serum or PlasmaOrdered By: Lorna Ortega on 04-12-2023 Creatinine [Mass/Vol] 0.81 mg/dL Normal 0.70-1.30 [facility] Comment on above: Order Comment: Reaso n for Exam Cirrhosis of liver Performed By: #### C MP #### [address] No Panel InformationOrdered By: Lorna Ortega on 04-12-2023 Estimated GFR (CKD-EPI) > 60.0 mL/Min [facility] Creatinine Clearance (Chem N/A [facility] Potassium [Moles/volume] in Serum or PlasmaOrdered By: Lorna Ortega on 04-12-2023 Potassium [Moles/Vol] 5.1 mmol/L Normal 3.5-5.1 [facility] Comment on above: Order Comment: Reaso n for Exam Cirrhosis of liver Performed By: #### C MP #### [address] Protein [Mass/volume] in Ser um or PlasmaOrdered By: Lorna Ortega on 04-12-2023 Protein [Mass/Vol] 6.3 g/dL Low 6.4-8.9 [facility] Comment on above: Order Comment: Reaso n for Exam Cirrhosis of liver Performed By: #### C MP #### [address] Serum globulin measurement b y calculation (mass/volume)Ordered By: Lorna Ortega on 04-12-2023 Globulin (S) [Mass/Vol] 3.3 g/dL Normal [facility] Comment on above: Order Comment: Reaso n for Exam Cirrhosis of liver Performed By: #### C MP #### [address] Serum or plasma anion gap de terminationOrdered By: Lorna Ortega on 04-12-2023 Anion gap [Moles/Vol] 9.8 mmol/L Normal 6.0-15.0 [facility] Comment on above: Order Comment: Reaso n for Exam Cirrhosis of liver Performed By: #### C MP #### [address] XR RIBS 2 VIEWS LEFT WITH [...] Normal Not Available US liveron 11-15-2022 liver [facility] [place] [address] [place], [place] [id number] Ultrasound Report Signed Patient: Charles Blandon MR#: [id number] 66 : 1955 Acct:[id number] Age/Sex: 67 / M ADM Date: 11/15/22 Loc: Room: Type: [facility] Attending Dr: Lorna Ortega [employer] Ordering Provider: Lorna Ortega APRN Date [...] Albin Villela M.D.11/15/2022 12:48 PM Dictation Location: [place] [address] Tech: Tr[employer] Transcribed By: ROLAND 11/15/22 1248 Dictated By: Albin Villela DO 11/15/22 1245 Signed By: 11/15/22 1248 Normal [facility] Actin smooth muscle IgG Ab [ Units/volume] in SerumOrdered By: Lex Carroll on 09-21-2022 Actin smooth muscle IgG Qn (S) 8 Units 0-19 [facility] Comment on above: Negative 0 - 19 Weak positive 20 - 30 Moderate to strong positive >30 Actin Antibodies are found in 52-85% of patients with autoimmune hepatitis or chronic active hepatitis and in 22% of patients with primary biliary cirrhosis. Alanine aminotransferase [En zymatic activity/volume] in Serum or PlasmaOrdered By: Lex Carroll on 09-21-2022 ALT [Catalytic activity/Vol] 30 U/L 7-52 [facility] Albumin [Mass/volume] in Ser um or Plasma by Bromocresol green (BCG) dye binding methoOrdered By: Lex Carroll on 09-21-2022 Albumin BCG dye [Mass/Vol] 3.6 g/dL 3.5-5.7 [facility] Alkaline phosphatase [Enzyma tic activity/volume] in Serum or PlasmaOrdered By: Lex Carroll on 09-21-2022 ALP [Catalytic activity/Vol] 96 U/L 34-104 [facility] Aspartate aminotransferase [ Enzymatic activity/volume] in Serum or PlasmaOrdered By: Lex Carroll on 09-21-2022 AST [Catalytic activity/Vol] 55 U/L 13-39 [facility] Basophils Auto (Bld) [#/Vol] Ordered By: Lex Carroll on 09-21-2022 Basophils (Bld) [#/Vol] 0.0 10*3/uL 0.0-0.2 [facility] Basophils/100 WBC Auto (Bld) Ordered By: Lex Carroll on 09-21-2022 Basophils/100 WBC (Bld) 0.9 % . [facility] Bilirubin.total [Mass/volume ] in Serum or PlasmaOrdered By: Lex Carroll on 09-21-2022 Bilirubin [Mass/Vol] 0.9 mg/dL 0.3-1.0 [facility] Calcium [Mass/volume] in Ser um or PlasmaOrdered By: Lex Carroll on 09-21-2022 Calcium [Mass/Vol] 8.7 mg/dL 8.6-10.3 [facility] Carbon dioxide, total [Moles /volume] in Serum or PlasmaOrdered By: Lex Carroll on 09-21-2022 CO2 [Moles/Vol] 26.9 mmol/L 21.0-31.[address] [facility] Chloride [Moles/volume] in S mateo or PlasmaOrdered By: Lex Carroll on 09-21-2022 Chloride [Moles/Vol] 108 mmol/L 98-107 [facility] Cholesterol [Mass/volume] in Serum or PlasmaOrdered By: Lex Carroll on 09-21-2022 Cholesterol [Mass/Vol] 175 mg/dL 140-200 [facility] Comment on above: Chol less than 200 m g/dl low riskChol 201-239 mg/dl borderline riskChol 240 mg/dl and greater high risk Cholesterol in LDL Calc [Mas s/Vol]Ordered By: Lex Carroll on 09-21-2022 Cholesterol in LDL [Mass/Vol] 94 mg/dL 0-100 [facility] Comment on above: LDL ATP III CLASSIFI CATIONLDL less than 100 mg/dL OptimalLDL 100-129 mg/dL Near or above optimalLDL 130-159 mg/dL Borderline highLDL 160-189 mg/dL HighLDL greater than 189 mg/dL Very high Cholesterol in VLDL Calc [Ma ss/Vol]Ordered By: Lex Carroll on 09-21-2022 Cholesterol in VLDL [Mass/Vol] 21 mg/dL [facility] Creatinine [Mass/volume] in Serum or PlasmaOrdered By: Lex Carroll on 09-21-2022 Creatinine [Mass/Vol] 0.90 mg/dL 0.70-1.30 [facility] Eosinophils Auto (Bld) [#/Vo l]Ordered By: Lex Carroll on 09-21-2022 Eosinophils (Bld) [#/Vol] 0.2 10*3/uL 0.0-0.45 [facility] Eosinophils/100 WBC Auto (Bl d)Ordered By: Lex Carroll on 09-21-2022 Eosinophils/100 WBC (Bld) 3.6 % . [facility] Erythrocyte distribution wid th Auto (RBC) [Ratio]Ordered By: Lex Carroll on 09-21-2022 Erythrocyte distribution width (RBC) [Ratio] 14.2 % 12.0-14.8 [facility] Globulin Calc (S) [Mass/Vol] Ordered By: Lex Carroll on 09-21-2022 Globulin (S) [Mass/Vol] 2.8 g/dL [facility] Glucose [Mass/volume] in Ser um or PlasmaOrdered By: Lex Carroll on 09-21-2022 Glucose [Mass/Vol] 123 mg/dL 70-100 [facility] Comment on above: ADA recommended refe rence rangeRandom Glucose Reference Range is dependent on time and content of last meal. Glucose of more than 200 mg/dL in a nonstressed, ambulatory subject supports the diagnosis of Diabetes Mellitus. Hematocrit Auto (Bld) [Volum e fraction]Ordered By: Lex Carroll on 09-21-2022 Hematocrit (Bld) [Volume fraction] 37.5 % 38.8-50.0 [facility] Hemoglobin [Mass/volume] in BloodOrdered By: Lex Carroll on 09-21-2022 Hemoglobin (Bld) [Mass/Vol] 12.9 g/dL 13.0-17.0 [facility] Hepatitis B virus surface Ag [Presence] in Serum or Plasma by ImmunoassayOrdered By: Lex Carroll on 09-21-2022 HBV surface Ag IA Ql Negative Negative [facility] Hepatitis C virus IgG Ab [Pr esence] in Serum or Plasma by ImmunoassayOrdered By: Lex Carroll on 09-21-2022 HCV IgG IA Ql Non-Reactive Non Reactive [facility] Laboratory - CoagulationOrde red By: Lex Carroll on 09-21-2022 PT Coag (PPP) [Time] 13.0 s 9.0-12.9 [facility] Leukocytes [#/volume] correc jamila for nucleated erythrocytes in Blood by Automated counOrdered By: Lex Carroll on 09-21-2022 WBC corrected for nucl RBC Auto (Bld) [#/Vol] 4.2 10*3/uL 4.1-10.5 [facility] Lymphocytes Auto (Bld) [#/Vo l]Ordered By: Lex Carroll on 09-21-2022 Lymphocytes (Bld) [#/Vol] 1.1 10*3/uL 1.00-4.8 [facility] Lymphocytes/100 WBC Auto (Bl d)Ordered By: Lex Carroll on 09-21-2022 Lymphocytes/100 WBC (Bld) 27.1 % . [facility] MCH Auto (RBC) [Entitic mass ]Ordered By: Lex Carroll on 09-21-2022 MCH (RBC) [Entitic mass] 35.0 pg 27.5-35.2 [facility] MCHC Auto (RBC) [Mass/Vol]Or dered By: Lex Carroll on 09-21-2022 MCHC (RBC) [Mass/Vol] 34.4 g/dL 32.5-35.6 [facility] MCV Auto (RBC) [Entitic vol] Ordered By: Lex Carroll on 09-21-2022 MCV (RBC) [Entitic vol] 101.9 fL 83.5-101 [facility] Monocytes Auto (Bld) [#/Vol] Ordered By: Lex Carroll on 09-21-2022 Monocytes (Bld) [#/Vol] 0.5 10*3/uL 0.0-0.8 [facility] Monocytes/100 WBC Auto (Bld) Ordered By: Lex Carroll on 09-21-2022 Monocytes/100 WBC (Bld) 11.3 % . [facility] Neutrophils Auto (Bld) [#/Vo l]Ordered By: Lex Carroll on 09-21-2022 Neutrophils (Bld) [#/Vol] 2.4 10*3/uL 1.8-7.7 [facility] Neutrophils/100 WBC Auto (Bl d)Ordered By: Lex Carroll on 09-21-2022 Neutrophils/100 WBC (Bld) 57.1 % . [facility] No Panel InformationOrdered By: Lex Carroll on 09-21-2022 Estimated GFR (CKD-EPI) > 60.0 mL/Min [facility] Hepatitis B Core Total Antibody Negative Negative [facility] Comment on above: Performed at: [facility] [address] [id number] Director: John Tang PhD, Phone: [phone] Hepatitis C Interpretation See comment . [facility] Comment on above: Not infected with HC V unless early or acute infection issuspected (which may be delayed in an immunocompromisedindividual), or other evidence exists to indicate HCVinfection. Hepatitis C RNA Quantitative N/A [facility] Creatinine Clearance (Chem 88.23 [facility] Nucleated erythrocytes [Pres ence] in Blood by Automated countOrdered By: Lex aCrroll on 09-21-2022 Nucleated RBC Auto Ql (Bld) 0.2 /100{WBC} 0-0.5 [facility] Platelet mean volume Auto (B ld) [Entitic vol]Ordered By: Lex Carroll on 09-21-2022 Platelet mean volume (Bld) [Entitic vol] 9.8 fL 6.6-10.1 [facility] Platelet poor plasma interna tional normalized ratio (INR) by coagulation assay (relatOrdered By: Lex Carroll on 09-21-2022 INR Coag (PPP) [Relative time] 1.1 {INR} [facility] Comment on above: INR Therapeutic Rang [...] 09-21-2022 Platelets (Bld) [#/Vol] 91 10*3/uL 150-450 [facility] Potassium [Moles/volume] in Serum or PlasmaOrdered By: Lex Carroll on 09-21-2022 Potassium [Moles/Vol] 5.0 mmol/L 3.5-5.1 [facility] Protein [Mass/volume] in Ser um or PlasmaOrdered By: Lex Carroll on 09-21-2022 Protein [Mass/Vol] 6.4 g/dL 6.4-8.9 [facility] RBC Auto (Bld) [#/Vol]Ordere d By: Lex Carroll on 09-21-2022 RBC (Bld) [#/Vol] 3.68 10*6/uL 3.90-5.60 [facility] Serum [id number] me asurementOrdered By: Lex Carroll on 09-21-2022 Alpha 1 antitrypsin [Mass/Vol] 205 mg/dL 101-187 [facility] Serum hepatitis B virus surf [place] antibody detectionOrdered By: Lex Carroll on 09-21-2022 HBV surface Ab Ql (S) Non-Reactive . [facility] Comment on above: Non Reactive: Incons istent with immunity, less than 10 mIU/mL Reactive: Consistent with immunity, greater than 9.9 mIU/mL Serum mitochondria M2 IgG an tibody assay (units/volume)Ordered By: Lex Carroll on 09-21-2022 Mitochondria M2 IgG Qn (S) <20.0 Units 0.0-20.0 [facility] Comment on above: Negative 0.0 - 20.0 Equivocal 20.1 - 24.9 Positive >24.9Mitochondrial (M2) Antibodies are found in 90-96% ofpatients with primary biliary cirrhosis.Performed at: [employer] [place] [id number] Director: John Tang PhD, Phone: [phone] Serum or plasma albumin/glob ulin mass ratioOrdered By: Lex Carroll on 09-21-2022 Albumin/Globulin [Mass ratio] 1.3 {ratio} [facility] Serum or plasma alpha 1 anti trypsin phenotyping identification by immunofixationOrdered By: Lex Carroll on 09-21-2022 Alpha 1 antitrypsin phenotyping Immunofixation Nom Mm . [facility] Comment on above: Phenotype Population A-1-AT [...] reference. Ranges used to confirm phenotype.Performed at: [id number] [place], [place] [id number] Director: John Tang PhD, Phone: [phone] at: [facility] [id number] Director: George Brown MD, Phone: [phone] Serum or plasma anion gap de terminationOrdered By: Lex Carroll on 09-21-2022 Anion gap [Moles/Vol] 11.1 mmol/L 6.0-15.0 [facility] Serum or plasma ceruloplasmi n measurement (mass/volume)Ordered By: Lex Carroll on 09-21-2022 Ceruloplasmin [Mass/Vol] 22.4 mg/dL 16.0-31.0 [facility] Comment on above: Performed at: [facility] [address] [id number] Director: John Tang PhD, Phone: [phone] Serum or plasma free cefurox nhi measurement (mass/volume)Ordered By: Lex Carroll on 09-21-2022 Cefuroxime free [Mass/Vol] Negative Negative [facility] Comment on above: Performed at: [facility] [address] [id number] Director: John Tang PhD, Phone: [phone] Serum or plasma high density lipoprotein (HDL) cholesterol measurementOrdered By: Lex Carroll on 09-21-2022 Cholesterol in HDL [Mass/Vol] 60 mg/dL 23-92 [facility] Comment on above: HDL CHOL ATP-III CLA SSIFICATION Cardiovascular RiskHDL > or equal to 60 mg/dL LOWHDL < 40 mg/dL HIGH Serum or plasma total choles terol/high density lipoprotein (HDL) cholesterol mass ratOrdered By: Lex Carroll on 09-21-2022 Cholesterol.total/Chol esterol in HDL [Mass ratio] 2.9 {ratio} <5.0 [facility] Sodium [Moles/volume] in Ser um or PlasmaOrdered By: Lex Carroll on 09-21-2022 Sodium [Moles/Vol] 141 mmol/L 136-145 [facility] Triglyceride [Mass/volume] i n Serum or PlasmaOrdered By: Lex Carroll on 09-21-2022 Triglyceride [Mass/Vol] 107 mg/dL 0-149 [facility] Comment on above: TRIG ATP III CLASSIF ICATIONTRIG less than 150 mg/dL NormalTRIG 150-199 mg/dL Borderline highTRIG 200-500 mg/dL High TRIG greater than 500 mg/dL Very highStandard traceable to the Center for Disease Conrtrol and Prevention (CDC) test method. Urea nitrogen [Mass/volume] in Serum or PlasmaOrdered By: Lex Carroll on 09-21-2022 Urea nitrogen [Mass/Vol] 9 mg/dL 7-25 [facility] WBC Auto (Bld) [#/Vol]Ordere d By: Lex Carroll on 09-21-2022 WBC (Bld) [#/Vol] 4.2 10*3/uL 4.1-10.5 [facility] PROGRESSon 04-05-2017 PROGRESS HNO ID: [id number] Author: Bebe Cunningham Ma Service: (none) Author Type: (none) Type: Progress Notes Filed: 04/05/2017 7:36 AM Note Text: PCP updated [facility] PROGRESS HNO ID: [id number] thor: Tanisha Clarkice: (none)Author Type: PhysicianType: Progress NotesFiled: 04/05/2017 7:36 AMNote Text:This note was created using Total Attorneysriter.Marcio jonathon Blandon is a 61 year old male.Review of SystemsObjectiveThere were no vitals taken for this visit.Physical ExamAssessment and PlanPlease remove me as PCP if he is moving out of state and plans toestablish elsewhere.Thank you. [facility] SAMIREAJoaquín 04-04-2017 CNPTOUTREA Patient Outreach ([facility]) NATHANIEL BLANDON AM ([id number]) 1955 MDate Time Provider Cwvxqtkqej47/19/17 TANISHA VAZQUEZ [facility] During your visit today, we recorded the following information about you:Bebe Cunningham Ma 04/05/2017 7:36 AM SignedSee refill request 03/30, pt moving to out of [facility] , do you want to updatePCPAmbadriana Vazquez MD 04/05/2017 7:36 AM SignedThis note was created using NoteWriter.SubjectiveWill jonathon Blandon is a 61 year old male.Review of SystemsObjectiveThere were no vitals taken for this visit.Physical ExamAssessment and PlanPlease remove me as PCP if he is moving out of [facility] and plans to [facility].Thank you.Bebe Cunningham Ma 04/05/2017 7:36 AM SignedPCP updatedAllergies As of Date: 04/04/2017 Noted Allergy ReactionBACTRIM (SULFAMETHOXAZOLE-TRIMETH *12/15/2014 2 - RashDate Reviewed: 01/04/2017Reviewed by: Bebe Cunningham Ma - Fully AssessedReason for Visit: PHMA/Care Gap Outreach [6164]Prescriptions as of 04/04/2017 Sig: METOPROLOL SUCCINATE ER [...] polyps [Z86.010]Follow-up and Disposition History RecordedEncounter Number: [id number] Status:Closed by BEBE CUNNINGHAM MA on 04/05/17 [facility] PROGRESSon 04-04-2017 PROGRESS HNO ID: [id number] Author: Bebe Cunningham Ma Service: (none) Author Type: (none) Type: Progress Notes Filed: 04/05/2017 7:36 AM Note Text: See refill request 03/30, pt moving to out of [facility] , do you want to update PCP [facility] OBSOLETEon 03-30-2017 OBSOLETE Refill ([facility]) NATHANIEL BLANDON AM ([id number]) 1955 MDate Time Provider Dnhhcqtfzd80/14/17 TANISHA VAZQUEZ [facility] During your visit today, we recorded the following information about you:Bebe Cunningham Ma 03/30/2017 4:25 PM SignedPt due for yearly split in Abbyshreyas Cunningham Ma 03/31/2017 3:12 PM SignedPt states they are moving to [place] he has apt to see a new [...] [place]IR[place] SAUCEDA CNP [facility]/31[facility] Nurse Visit ([facility]) NATHANIEL BLANDON AM ([id number]) 1955 MDate Time Provider Jmdenbwqxy89/30/17 5:50 PM NURSE EYAD COLLAZO [facility] During your visit today, we recorded [...] Status:Closed by JUNAID OFFICE MGROTONIEL on 02/13/17 [facility] 02-13-2017 HOSP REFILL - MYCHART ([facility]) NATHANIEL BLANDON AM ([id number]) 1955 MDate Time Provider Fnqvmdyqhx67/30/17 TANISHA VAZQUEZ During your visit today, we recorded the following information about you:Bebe Cunningham Ma 02/13/2017 2:35 PM SignedMessage from [facility]:Original authorizing provider: Ruben Iqbal would like a refill of the following medications:zolpidem (AMBIEN) 10 mg tab [Tanisha Vazquez MD]Preferred pharmacy: [id number] [place] [address] - [id number] - [phone] [facility] [id number]:Bebe Cunningham Ma 02/13/2017 2:38 PM SignedScript pending [...] Status:Closed by TANISHA VAZQUEZ MD on 02/13/17 [facility] CNOVon 01-04-2017 CNOV Office Visit ([facility]) NATHANIEL BLANDON AM ([id number]) 1955 MDate Time Provider Department01/04/17 9:00 AM TANISHA VAZQUEZ [facility] During your visit today, we recorded [...] 3V AP/LAT/OBL LTBAILEY Iqbaleferrfina Provider: TANISHA VAZQUEZ [[id number]]Allergies As of Date: 01/04/2017 Noted Allergy ReactionBACTRIM (SULFAMETHOXAZOLE-TRIMETH *12/15/2014 2 - RashDate Reviewed: 01/04/2017Reviewed by: Bebe Cunningham Ma - Fully AssessedReason for Visit: Acute Visit [896] Cmt: swollen toe x 2 weeksReason For Visit History RecordedPrimary Visit Diagnosis:Great toe pain, left [M79.675]Order(s):XR TOE AP/LAT/OBL LT [[id number]] Order #: [id number] FUTURE XR FOOT GENERAL 3V AP/LAT/OBL LT [[id number]] Order #: [id number] FUTUREPrescriptions as of 01/04/2017 Sig: METOPROLOL SUCCINATE [...] daily with meals. Disc: Course of therapy completedEnckaiser permanente medical centerer Number: [id number] Status:Closed by TANISHA VAZQUEZ MD on 01/04/17 [facility] Jose [facility] NATHANIEL BLANDON AM ([id number]) 1955 MDate Time Provider Department01/04/17 TANISHA VAZQUEZ [facility] During your visit today, we recorded [...] T TO ORTHOPAEDIC SURGERY [[id number]] Order #: [id number]: 1Prescriptions as of 01/04/2017 Sig: METOPROLOL SUCCINATE [...] Status:Closed by TANISHA VAZQUEZ MD on 01/04/17 [facility] PROGRESSon 01-04-2017 PROGRESS HNO ID: [id number] thor: Jaclyn Lowe (Tech) JoeService: (none)Author Type: TechnicianType: Progress NotesFiled: 01/04/2017 9:36 AMNote Text: Radiology Service Progress NotePATIENT NAME: Charles AyalagMRN: [id number] OF SERVICE: January 04, 2017TIME: 9:36 AMPATIENT IDENTITY VERIFICATION COMPLETED USING TWO (2) METHODS: Patientconfirmed name verbally and Date of .PATIENT GENDER DATA: MalePATIENT RELEVANT IMPLANT DATA REVIEWED: Not ApplicableRADIOLOGY DEPARTMENT: General X-ray: Exam(s) Completed: Lower ExtremityX-Ray(s): Foot, Left and Wt. Bearing and Toes, Left:PERIPHERAL IV DATA: Not applicableSIGNED BY: Jaclyn Diaz, RRTSeptember 2016 9:36 AM [facility] PROGRESS HNO ID: [id number] thor: Tanisha Clarkice: (none)Author Type: PhysicianType: Progress [...] GENERAL 3V AP/LAT/OBL LTTanisha Vazquez MD [facility] XR FOOT 3V AP/LAT/OBL LTon 0 [...] phalanx with extension into the 1st IP joint.[employer]ulic Press Operator: SRINI Transcribe Date/Time: Jan 04 2017 10:28ADictated by : MALORIE NICHOLS MDThis examination was interpreted and the report reviewed and electronically signed by: MALORIE NICHOLS MD on Jan 04 2017 2:47PM [id number] [facility] XR TOE 3V AP/LAT/OBL LTon XR [...] phalanx with extension into the 1st IP joint.[employer] Operator: SRINI Transcribe Date/Time: Jan 04 2017 10:28ADictated by : MALORIE NICHOLS MDThis examination was interpreted and the report reviewed and electronically signed by: MALORIE NICHOLS MD on Jan 04 2017 2:47PM [id number] [facility] ([facility]) NATHANIEL BLANDON AM ([id number]) 1955 MDate Time Provider Department12/11/16 COY BLANCHARD [facility] During your visit today, we recorded [...] Status:Closed by [facility]ARD [facility] NATHANIEL BLANDON AM ([id number]) 1955 [facility] Department12/10/16 9:30 AM COY BLANCHARD [facility] During your visit today, we recorded [...] ?F) (Oral) Wt 95.7 kg (211 lb) EcV869% BMI 30.71 kg/m2BMI 30.71 kg/(m2)General: alert and [...] MG TABLET- URIC ACID BLOODMattjose juan Blanchard MDSutter [facility] 12/10/2016 9:58 AM SignedPhlebotomy was performed [...] 1 URIC ACID BLOOD [SQURIC] Order #: [id number] as of 12/10/2016 Sig: METOPROLOL SUCCINATE ER [...] to improve.Follow-up and Disposition History RecordedEncounter Number: [id number] Status:Closed by COY BLANCHARD MD on 12/10/16 [facility] PROGRESSon 12-10-2016 PROGRESS HNO ID: [id number] thor: Coy Blanchard, [facility]ervice: (none)Author Type: PhysicianType: Progress NotesFiled: 12/10/2016 9:59 AMNote Text:Charles Blandon is a 61 year old male here complaining of left toe pain.According to the patient, he states he has been diagnosed with gout in [facility] and has had similar symptoms. Last [...] ACID ANA PAULAMattjose juan Blanchard MD [facility] Uric Acidon 12-10-2016 Urate 8.2 mg/dL High 4.0-8.1 [facility] Comment on above: Performed By: #### U BARB ####[facility] [address] [place], [place] [phone] CNOVon 11-01-2016 CNOV Office Visit ([facility]) NATHANIEL BLANDON AM ([id number]) 1955 MDate Time Provider Department11/01/16 9:30 AM ROYCE ARAIZA During your visit today, we recorded the following information about you: Pulse Blood pressure 57/minute 165/82Aloalbania Araiza MD 11/01/2016 2:06 PM SignedDERMATOLOGY CONSULT FOR MOHSSERVICE DATE: 11/01/2016PRIMARY CARE PHYSICIAN: MORENA Iqbal PROVIDER:Tanisha Vazquez MD[address] [facility] [address]Ehkgtvrzuxbn requested for an opinion regarding the evaluation and treatmentof skin cancer. My final impression and recommendations will be communicatedback to the requesting physician by way of the shared medical record or lettervia US mail.SUBJECTIVECHIEF COMPLAINT: BCCHISTORY OF PRESENT ILLNESSBIOPSY INFORMATION:1. Pathology Results: BCC Nodular and Ulcerated of the LEFT TEMPLEReport Number: Inside Pathology [id number] Performed: 08/10/2016Performed By: [facility] ProviderPast Treatment: No Past Treatment Tumor Type: PrimaryPresent For: unknown amount of month(s)Signs ANDamp; Symptoms: Non-healingPAST DERM HISTORY: No History of Skin CancerFAMILY HISTORY: No History of Skin CancerPAST MEDICAL HISTORYDiagnosis Date- Recinos's esophagus- GERD (gastroesophageal reflux disease)- HTN (hypertension)- Hx of colonic polyps- Osteoporosis- Umbilical herniaPAST SURGICAL [id number]: CHOLECYSTECTOMYNo date: COLONOSCOPY Comment: every 3 yearsNo [...] Nose, Chin, Lips, Ears, Periauricular Skin and Pentecostal)Pre-op Size: 0.6 cm - 1 cm, (0.7cm [...] and Past Histories independentlygathered by the clinical marketing support assistant and the remaining scribed noteaccurately describes my personal service to the patient.SIGNATURE: Royce Araiza MD PATIENT NAME: Charles AyalagDATE: November 01, 2016 : 10:20 AM PAGER/CONTACT #:MOHS MICROGRAPHIC OPERATIVE REPORTSERVICE DATE: 11/01/2016SERVICE TIME: 9:10 AMLOCATION:[facility] [place], [place] [address]TAYSMLGFQ PROVIDER:Tanisha Vazquez MD[address] [facility] [id number] START TIME: 941PROCEDURE END TIME: URGEON: Dr. 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 November 01, 2016 10:29 AM.I agree with the Chief Complaint, ROS, and Past Histories independentlygathered by the clinical marketing support assistant and the remaining scribed noteaccurately describes my [...] SurgeryDepartment to speak to a Nurse at [phone].After 5 pm, nights, and weekends, please call [phone] or and ask for the dermatology surgery fellow expansion joint finisher.Referring Provider: TANISHA VAZQUEZ [[id number]]Allergies As of Date: 11/01/2016 Noted Allergy ReactionBACTRIM (SULFAMETHOXAZOLE-TRIMETH *12/15/2014 2 - RashDate Reviewed: 11/01/2016Reviewed by: Royce Araiza - Fully AssessedPrimary Visit Diagnosis:Basal cell carcinoma of left jewish region [C44.319]Prescriptions as of 11/01/2016 Sig: METOPROLOL [...] Department to speak to a Nurse at [phone]. After 5 pm, nights, and weekends, please call [phone] or and ask for the dermatology surgery fellow expansion joint finisher.Disposition: Return in about 6 weeks (around 12/13/2016) for WOUND CHECK.Follow-up and Disposition History RecordedEncounter Number: [id number] Status:Closed by ROYCE ARAIZA MD on 11/01/16 [facility] PROGRESSon 11-01-2016 PROGRESS HNO ID: [id number] thor: Royce Lindoervice: (none)Author Type: PhysicianType: Progress NotesFiled: 11/01/2016 2:06 PMNote Text:DERMATOLOGY CONSULT FOR MOHSSERVICE DATE: 11/01/2016PRIMARY CARE PHYSICIAN: MORENA Iqbal PROVIDER:Tanisha Vazquez MD[address] [place] [address]Consultation requested for an opinion regarding the evaluation andtreatment of skin cancer. My final impression and recommendations will becommunicated back to the requesting physician by way of the shared medicalrecord or letter via US mail.SUBJECTIVECHIEF COMPLAINT: BCCHISTORY OF PRESENT ILLNESSBIOPSY INFORMATION:1. Pathology Results: BCC Nodular and Ulcerated of the LEFT TEMPLEReport Number: Inside Pathology [id number] Performed: 08/10/2016Performed By: [facility] ProviderPast Treatment: No Past Treatment Tumor Type: PrimaryPresent For: unknown amount of month(s)Signs AND Symptoms: Non-healingPAST DERM HISTORY: No History of Skin CancerFAMILY HISTORY: No History of Skin CancerPAST MEDICAL HISTORYDiagnosis Date- Recinos's esophagus- GERD (gastroesophageal reflux disease)- HTN (hypertension)- Hx of colonic polyps- Osteoporosis- Umbilical herniaPAST SURGICAL [id number]: CHOLECYSTECTOMYNo date: COLONOSCOPY Comment: every 3 yearsNo [...] Eyebrows, Nose, Chin, Lips, Ears, Periauricular Skinand Pentecostal)Pre-op Size: 0.6 cm - 1 cm, (0.7cm [...] and Past Histories independentlygathered by the clinical marketing support assistant and the remaining scribed noteaccurately describes my personal service to the patient.SIGNATURE: Royce Araiza MD PATIENT NAME: Charles AyalagDATE: November 01, 2016 : 10:20 AM PAGER/CONTACT #:MOHS MICROGRAPHIC OPERATIVE REPORTSERVICE DATE: 11/01/2016SERVICE TIME: 9:10 AMLOCATION:Celine Monzon [facility] [place], [place] [address]HFZTSGHFL PROVIDER:Tanisha Vazquez MD[address] [facility] [address]WERSNSFVU START TIME: 941PROCEDURE END TIME: URGEON: Dr. [...] Available at Bedside: Inside pathology report # [id number] Size: 0.6 cm - 1 cm, (0.7cm X 0.8cm)Lymphadenopathy: NoneIndication for Mohs: Anatomic Location where lesion is prone to recur,Type of tumor, Age of patient and Ill-defined bordersLocation: Area H: (Mask Areas of the Face - Includes Central Face,Eyelids, Inner/Outer [place], Eyebrows, Nose, Chin, Lips, Ears,Periauricular Skin and Pentecostal)Preparation: Povidone-iodineLAYER AThe patient was positioned, prepped with [...] surgery on aPrimary tumor type from LEFT SHINTO (location of tumor).Post-op Defect Size: 1.0 x [...] GIVEN WITH VERBAL UNDERSTANDING: YesPATIENT DISCHARGED TO AUTO BODY REPAIR TECHNICIAN/NAME: SelfFOLLOW UP: Return for wound care check in 6 weeksSee Dermatology yearly or as needed for FSE'sPRNThe documentation for this note was completed by Lis Serrano RN acting asscribe for Royce Araiza MD. November 01, 2016 10:29 AM.I agree with the Chief Complaint, ROS, and Past Histories independentlygathered by the clinical marketing support assistant and the remaining scribed noteaccurately describes my personal service to the patient.SIGNATURE: Royce Araiza MD PATIENT NAME: Charles AyalagDATE: November 01, 2016 : 9:10 AM PAGER/CONTACT #: [facility] 10-17-2016 [facility] Nurse Visit ([facility]) JAMIANATHANIEL RUIZ León ([id number]) 1955 MDate Time Provider Department10/17/16 7:00 AM NURSE EYAD COLLAZO [facility] During your visit today, we recorded the following information about you:Constance Elida Agricultural Systems Specialist 10/17/2016 1:46 PM SignedPhlebotomy was performed per the order of Tanisha Vazquez M.D.., accessing leftantecubital vein.Needle removed intact. Dressing secured with tape.Patient denies discomfort, dizziness, light-headedness, or weakness and leftthe office ambulatory..Referring Provider: TANISHA VAZQUEZ [[id number]]Allergies As of Date: 10/17/2016 Noted Allergy ReactionBACTRIM (SULFAMETHOXAZOLE-TRIMETH *12/15/2014 2 - RashDate Reviewed: 08/10/2016Reviewed by: Bebe Cunningham Ma - Fully AssessedVisit Diagnoses:Abnormal LFTs [R79.89] Elevated fasting blood sugar [R73.01]Order(s):COMP METABOLIC PANEL [SQCMP] Order #: [id number] HGB A1C [LTIYZ8R] Order #: [id number] as of 10/17/2016 Sig: METOPROLOL SUCCINATE ER [...] of colonic polyps [Z86.010]Visit Notes:>> Constance Mancuso Agricultural Systems Specialist [facility] Oct 17, 2016 1:42 PM Status: SignedPhlebotomy was performed per the order of Tanisha Vazquez M.D.., accessingleft antecubital vein.Needle removed intact. Dressing secured with tape.Patient denies discomfort, dizziness, light-headedness, or weakness andleft the office ambulatory.. Status:Closed by ELIDA RACK CLEANER, ELAINE on 10/17/16 [facility] Comp Metabolic Panelon 10-17 Alanine aminotransferase (ALT) 38 U/L Normal 10-54 [facility] Comment on above: Performed By: #### C MP, HBA1C ####[facility] [place] [phone] Albumin 4.1 g/dL Normal 3.9-4.9 [facility] Comment on above: Performed By: #### C MP, HBA1C ####[facility] [address] [place] [phone] Alkaline phosphatase (ALP) 54 U/L Normal 36-108 [facility] Comment on above: Performed By: #### C MP, HBA1C ####[facility] [address] [place], [place] [phone] Anion gap 20 mmol/L High 9-18 [facility] Comment on above: Performed By: #### C MP, HBA1C ####[facility] [place] [address] [place] [phone] Aspartate aminotransferase (AST) 43 U/L High 14-40 [facility] Comment on above: Performed By: #### C MP, HBA1C ####[facility] [place] [address] [place] [phone] Bilirubin (total) 0.3 mg/dL Normal 0.2-1.3 [facility] Comment on above: Performed By: #### C MP, HBA1C ####[facility] [place] [address] [place] [phone] Calcium 9.5 mg/dL Normal 8.5-10.2 [facility] Comment on above: Performed By: #### C MP, HBA1C ####[facility]CDeb[address] [place] [phone] Chloride 101 mmol/L Normal 97-105 [facility] Comment on above: Performed By: #### C MP, HBA1C ####[place] [address] [address] [phone] CO2 23 mmol/L Normal 22-30 [facility] Comment on above: Performed By: #### C MP, HBA1C ####[place] [address] [place] [address] [place] [phone] Creatinine 1.02 mg/dL Normal 0.73-1.22 [facility] Comment on above: Performed By: #### C MP, HBA1C ####[place] [address] [place] [phone] eGFR (non-black) mL/min/{1.73_m2} Normal [facility] Comment on above: Performed By: #### C MP, HBA1C ####[place] [address] [place] [address] [phone] Result Comment: eGFR (Estimated GFR) Units of [...] Glucose mass conc 90 mg/dL Normal 74-99 [facility] Comment on above: Result Comment: The [place] Diabetes Association (ADA) provides guidance for cutoff [...] Standards of Medical Care in Diabetes 2016, [place] Diabetes Association. Diabetes Care. 2016.39(Suppl 1). Performed By: #### C MP, HBA1C ####[address] [phone] Potassium molar conc 4.6 mmol/L Normal 3.7-5.1 [facility] Comment on above: Performed By: #### C MP, HBA1C ####[address] [phone] Protein 7.1 g/dL Normal 6.3-8.0 [facility] Comment on above: Performed By: #### C MP, HBA1C ####[address] [phone] Sodium 144 mmol/L Normal 136-144 [facility] Comment on above: Performed By: #### C MP, HBA1C ####[address] [phone] Urea nitrogen 18 mg/dL Normal 9-24 [facility] Comment on above: Performed By: #### C MP, HBA1C ####[address] [phone] Hemoglobin A1con 10-17-2016 Glucose mass conc 120 mg/dL Normal [facility] Comment on above: Result Comment: eAG: (Estimated average glucose) is a calculated value from HgbA1c and is manufacturers representative of the average blood glucose level in the last 2-3 month period. Performed By: #### C MP, HBA1C ####[facility] [place], [place] [phone] Hemoglobin A1c/Hemoglobin.total mass fraction (Bld) 5.8 % High 4.3-5.6 [facility] Comment on above: Result Comment: [facility] Diabetes Association guidelines indicate that patients with HgbA1c in the range 5.7-6.4% are at increased risk for development of diabetes, and intervention by lifestyle modification may be beneficial. HgbA1c greater or equal to 6.5% is considered diagnostic of diabetes. Performed By: #### C MP, HBA1C ####[facility] [place], [place] [phone] Vital Signs Date Time Vital Sign Value Performing Clinician Facility 07-05-2023 08:58-0400 Body weight 94.85 kg II Rusty Delgado Work Phone: [facility] 07-05-2023 08:58-0400 Diastolic blood pressure 71 mm[Hg] II Rusty Delgado Work Phone: [facility] 07-05-2023 08:58-0400 Heart rate 88 /min II Rusty Delgado Work Phone: [facility] 07-05-2023 08:58-0400 Systolic blood pressure 121 mm[Hg] II Rusty Delgado Work Phone: [facility] 06-13-2023 17:15-0500 Diastolic blood pressure 62 mm[Hg] II Rusty Delgado Work Phone: [facility] 06-13-2023 17:15-0500 Heart rate 72 /min II Rusty Delgado Work Phone: [facility] 06-13-2023 17:15-0500 Respiratory rate 20 /min II Rusty Delgado Work Phone: [facility] 06-13-2023 17:15-0500 SaO2% (BldA) [Mass fraction] 94 % II Rusty Delgado Work Phone: [facility] 06-13-2023 17:15-0500 Systolic blood pressure 101 mm[Hg] II Rusty Delgado Work Phone: [facility] 06-13-2023 13:38-0500 Body height 175.26 cm II Rusty Delgado Work Phone: [facility] 06-13-2023 13:38-0500 Body mass index (BMI) [Ratio] 31.1 kg/m2 II Rusty Delgado Work Phone: [facility] 06-13-2023 13:38-0500 Body weight 95.7 kg II Rusty Delgado Work Phone: [facility] 06-13-2023 12:05-0500 Body temperature 98.2 [degF] II Rusty Delgado Work Phone: [facility] 05-31-2023 15:07-0500 Body height 175.3 cm Janneth Itzkowitz DO Work Phone: [facility] 05-31-2023 15:07-0500 Body mass index (BMI) [Ratio] 32.05 kg/m2 Janneth Itzkowitz DO Work Phone: [facility] 05-31-2023 15:07-0500 Body weight 98.43 kg Janneth Itzkowitz DO Work Phone: [facility] 05-31-2023 15:07-0500 Diastolic blood pressure 72 mm[Hg] Janneth Itzkowitz DO Work Phone: [facility] 05-31-2023 15:07-0500 Systolic blood pressure 120 mm[Hg] Janneth Itzkowitz DO Work Phone: [facility] 05-23-2023 06:44-0500 Body height 175.26 cm II Rusty Delgado Work Phone: [facility] 05-23-2023 06:44-0500 Body weight 99.79 kg II Rusty Delgado Work Phone: [facility] 05-18-2023 14:04-0500 Body height 175.3 cm Janneth Itzkowitz DO Work Phone: [facility] 05-18-2023 14:04-0500 Body mass index (BMI) [Ratio] 32.78 kg/m2 Janneth Itzkowitz DO Work Phone: [facility] 05-18-2023 14:04-0500 Body weight 100.7 kg Janneth Itzkowitz DO Work Phone: [facility] 05-18-2023 14:04-0500 Diastolic blood pressure 74 mm[Hg] Janneth Itzkowitz DO Work Phone: [facility] 05-18-2023 14:04-0500 Systolic blood pressure 120 mm[Hg] Janneth Itzkowitz DO Work Phone: [facility] 04-12-2023 11:00-0500 Body height 175.26 cm Lorna Ortega Other [facility] 04-12-2023 11:00-0500 Body mass index (BMI) [Ratio] 33.22 kg/m2 Lorna Raymonovanner Other [facility] Other 04-12-2023 11:00-0500 Body weight 102.06 kg Lorna Scnaya Other [facility] Other 04-12-2023 11:00-0500 Body weight 102.05 kg II Rusty Delgado Work Phone: [facility] 04-12-2023 11:00-0500 Diastolic blood pressure 67 mm[Hg] Lorna Scovanner Other [facility] 04-12-2023 11:00-0500 Systolic blood pressure 135 mm[Hg] Lorna Scovanner Other [facility] 11-10-2022 11:00-0400 Body weight 99.79 kg Lorna Ortega Other [facility] Other 11-10-2022 11:00-0400 Diastolic blood pressure 74 mm[Hg] Lorna Ortega Other [facility] Other 11-10-2022 11:00-0400 Systolic blood pressure 127 mm[Hg] Lorna Ortega Other [facility] Other 09-21-2022 08:49-0400 Diastolic blood pressure 78 mm[Hg] II Rusty Delgado Work Phone: [facility] 09-21-2022 08:49-0400 Heart rate 50 /min II Rusty Delgado Work Phone: [facility] 09-21-2022 08:49-0400 SaO2% (BldA) [Mass fraction] 99 % II Rusty Delgado Work Phone: [facility] 09-21-2022 08:49-0400 Systolic blood pressure 125 mm[Hg] II Rusty Delgado Work Phone: [facility] 09-21-2022 07:36-0400 Body height 175.26 cm II Rusty Delgado Work Phone: [facility] 09-21-2022 07:36-0400 Body temperature 98.5 [degF] II Rusty Delgado Work Phone: [facility] 09-21-2022 07:36-0400 Body weight 95.25 kg II Rusty Delgado Work Phone: [facility] 09-21-2022 07:36-0400 Respiratory rate 16 /min II Rusty Delgado Work Phone: [facility] Encounters Encounter Date Encounter Type Care Provider Facility Start: 11-27-2023 End: 11-27-2023 [facility] IRENA JOHNSON [facility] Start: 11-15-2023 End: 11-15-2023 ambulatory RUSTY DELGADO Not Available Start: 11-14-2023 End: 11-14-2023 ambulatory LANRE GUERIN [facility] Start: 11-08-2023 End: 11-08-2023 ambulatory ROSALINO LAMAS Not Available Start: 10-13-2023 ambulatory [facility] Start: 10-13-2023 End: 10-13-2023 ambulatory IRENA JOHNSON [facility] Start: 10-09-2023 End: 10-09-2023 ambulatory JANNETH VILLEGAS Not Available Start: 10-03-2023 End: 10-03-2023 ambulatory II Rusty Delgado Work Phone: [facility] Work Phone: Start: 10-03-2023 End: 10-03-2023 Departed Referred II Rusty Delgado Work Phone: [facility] Start: 10-02-2023 End: 10-02-2023 ambulatory LYNDSEY PATEL Not Available Start: 09-25-2023 End: 09-25-2023 ambulatory [facility] Start: 09-15-2023 End: 09-15-2023 ambulatory WARD SIMPSONCT Not Available Start: 09-05-2023 End: 09-05-2023 ambulatory WARD BENEDICT Not Available Start: 08-30-2023 End: 08-30-2023 ambulatory WARD BENEDICT Not Available Start: 08-22-2023 End: 08-22-2023 ambulatory [facility] Start: 08-07-2023 End: 08-07-2023 ambulatory [facility] Start: 07-18-2023 End: 07-18-2023 ambulatory FABY ECHEVARRIA Not Available Start: 07-12-2023 End: 07-13-2023 ambulatory Janneth Villegas Facility:[facility] Start: 07-12-2023 End: 07-12-2023 Patient encounter procedure Jourdan ARRIAZA [facility] Start: 07-05-2023 End: 07-05-2023 ambulatory II Rusty Delgado Work Phone: [facility] Work Phone: Start: 07-05-2023 End: 07-05-2023 Patient encounter procedure II Rusty Delgado Work Phone: [facility] G[facility] Work Phone: Start: 06-29-2023 End: 06-29-2023 ambulatory JANNETH H ITZKOWITZ Not Available Start: 06-23-2023 ambulatory Janneth Itzkowitz Facil ity:[facility] Start: 06-22-2023 End: 06-22-2023 ambulatory JANNETH H ITZKOWITZ Not Available Start: 06-13-2023 End: 06-13-2023 Admission to same day surgery center II Rusty Delgado Work Phone: [facility] [place] Start: 06-13-2023 End: 06-13-2023 ambulatory Janneth Itzkowitz Facility:[facility] Start: 06-02-2023 End: 06-02-2023 Patient encounter procedure II Rusty Delgado Work Phone: [facility] Work Phone: Start: 06-02-2023 End: 06-02-2023 ambulatory II Rusty Delgado Work Phone: [facility] Work Phone: Start: 05-31-2023 End: 05-31-2023 Office outpatient visit 25 minutes Janneth H Itzkowitz DO Work Phone: [facility] Comment on above: Fissure in ano (Prim chinmay Dx) Start: 05-31-2023 End: 05-31-2023 ambulatory JANNETH H ITZKOWITZ Not Available Start: 05-23-2023 End: 05-23-2023 Admission to same day surgery center II Rusty Delgado Work Phone: [facility] Work Phone: Start: 05-23-2023 End: 05-23-2023 ambulatory Minh Griffith Facility:[facility] Start: 05-18-2023 End: 05-18-2023 Office outpatient new 45 minutes Janneth Rouse Long DO Work Phone: [facility] Comment on above: Fissure in ano Start: 05-18-2023 End: 05-18-2023 ambulatory JANNETH H ITZLILLIAMWITZ Not Available Start: 05-11-2023 End: 05-11-2023 ambulatory Lorna Ortega Other [facility] Other Start: 05-11-2023 Office outpatient visit 15 minutes Lorna Ortega [facility] Start: 04-28-2023 End: 04-28-2023 ambulatory Lorna Ortega Other [facility] Other Start: 04-28-2023 Telephone encounter Lorna Coates [facility] Start: 04-27-2023 End: 04-27-2023 ambulatory Lorna Ortega Other [facility] Other Start: 04-27-2023 Telephone encounter Lorna Coates [facility] Start: 04-26-2023 End: 04-26-2023 Patient encounter procedure II Rusty Delgado Work Phone: [facility] [place] Work Phone: Start: 04-26-2023 End: 04-26-2023 ambulatory Rusty Delgado Facility:[facility] Start: 04-13-2023 End: 04-13-2023 ambulatory Lorna Ortega Other [facility] Other Start: 04-13-2023 Telephone encounter Lorna Coates [facility] Start: 04-12-2023 Office outpatient visit 25 minutes Lorna Ortega [facility] Start: 04-12-2023 Telephone encounter Lorna Coates [facility] Start: 04-12-2023 End: 04-12-2023 Patient encounter procedure II Rusty Delgado Work Phone: [facility] [place] Work Phone: Start: 04-12-2023 End: 04-12-2023 ambulatory II Rusty Delgado Work Phone: [facility] Other Start: 04-12-2023 End: 04-12-2023 Patient encounter procedure II uRsty Delgado Work Phone: [facility] Gastroenter[facility] Work Phone: Start: 04-03-2023 End: 04-03-2023 ambulatory Lorna Ortega Other [facility] Other Start: 04-03-2023 Telephone encounter Lorna Coates [facility] Start: 03-30-2023 End: 03-30-2023 ambulatory RUSTY DELGADO Not Available Start: 03-24-2023 End: 03-24-2023 ambulatory RUSTY DELGADO Not Available Start: 03-24-2023 End: 03-24-2023 ambulatory RUSTY DELGADO Not Available Start: 11-18-2022 End: 11-18-2022 ambulatory Lorna Ortega Other [facility] Other Start: 11-18-2022 Telephone encounter Lorna Coates [facility] Start: 11-15-2022 End: 11-15-2022 Patient encounter procedure II Rusty Delgado Work Phone: [facility] [place] Work Phone: Start: 11-15-2022 End: 11-15-2022 ambulatory II Rusty Delgado Work Phone: [facility] Work Phone: Start: 11-10-2022 End: 11-10-2022 ambulatory Lorna Ortega Other [facility] Other Start: 11-10-2022 Office outpatient visit 15 minutes Lorna Ortega [facility] G[facility] Start: 11-03-2022 End: 11-03-2022 Patient encounter procedure II Rusty Delgado Work Phone: [facility] Work Phone: Start: 11-03-2022 End: 11-03-2022 ambulatory Lex Carroll Facility:[facility] Start: 10-26-2022 End: 10-26-2022 Departed Referred II Rusty Delgado Work Phone: [facility] Work Phone: Start: 10-26-2022 End: 10-26-2022 Patient encounter procedure II Rusty Delgado Work Phone: [facility] Work Phone: Start: 10-26-2022 End: 10-26-2022 ambulatory II Rusty Delgado Work Phone: [facility] Work Phone: Start: 09-21-2022 End: 09-21-2022 Admission to same day surgery center II Rusty Delgado Work Phone: [facility] Work Phone: Start: 09-21-2022 End: 09-21-2022 ambulatory II Rusty Delgado Work Phone: [facility] Work Phone: Start: 02-13-2017 End: 02-13-2017 Ambulatory TANISHA CEHMA [facility] Start: 01-04-2017 End: 01-04-2017 Ambulatory TANISHA VAZQUEZ [facility] Start: 12-10-2016 End: 12-10-2016 Ambulatory COY BLANCHARD [facility] Start: 11-01-2016 End: 11-02-2016 Ambulatory ROYCE ARAIZA [facility] Start: 10-17-2016 End: 10-17-2016 Ambulatory TANISHA VAZQUEZ [facility] Procedures Date Procedure Procedure Detail Performing [...] 05-12-2032 Screening for malignant neoplasm of colon [facility] Start: 05-26-2024 Urine screening for protein Diabetes: Urine Protein Screening [facility] Start: 05-24-2024 Glaucoma screening Diabetes: Retinopathy Screening [facility] Start: 08-24-2023 Hemoglobin A1c measurement Diabetes: Hemoglobin A1C [facility] Start: 06-13-2023 [facility] Start: 06-13-2023 [facility] Start: 06-13-2023 End: 06-13-2023 Patient encounter procedure 06/13/2023 1:30 PM EST Procedure Visit [facility] Janneth Villegas DO [address] [facility] [address] [place] [address] [facility] Start: 06-09-2023 End: 06-09-2023 Patient encounter procedure 06/09/2023 10:30 AM EST Office Visit [facility] [address] [facility] [address] [place] [id number] Janneth Villegas, DO [address] [facility] [address] [place] [address] [facility] Start: 05-26-2023 Medicare Annual Wellness (AWV) Medicare Annual Wellness (AWV) [facility] Start: 05-23-2023 [facility] Start: 02-23-2023 Hemoglobin A1c measurement Diabetes: Hemoglobin A1C [facility] Start: 11-03-2022 [facility] Start: 11-03-2022 Ultrasound elastography of liver DH Fibroscan (Not Applicable) [facility] Start: 10-26-2022 Ultrasound elastography of liver [facility] Fibroscan (Not Applicable) [facility] Start: 10-26-2022 [facility] Start: 09-21-2022 Hepatitis B core antibody measurement [facility] Start: 09-21-2022 End: 09-21-2022 [facility] Start: 1972 Urine screening for protein Diabetes: Urine Protein Screening [facility] Start: 08-03-1959 Pneumococcal Vaccine: 65+ Years (1 - PCV) Pneumococcal Vaccine: 65+ Years (1 - PCV) [facility] Start: 1955 Medicare Annual Wellness (AWV) Medicare Annual Wellness (AWV) [facility] Start: 1955 Screening for malignant neoplasm of colon [facility] Actin smooth muscle IgG Ab [Units/volume] in Serum [facility] Alpha 1 antitrypsin [Mass/volume] in Serum or Plasma [facility] Alpha 1 antitrypsin phenotyping [Identifier] in Serum or Plasma by Immunofixation [facility] Cefuroxime free [Mass/volume] in Serum or Plasma [facility] Ceruloplasmin [Mass/volume] in Serum or Plasma [facility] Hepatitis B virus galindo rface Ab [Presence] in Serum [facility] Hepatitis B virus aglindo rface Ag [Presence] in Serum or Plasma by Immunoassay [facility] Hepatitis C virus Ig G Ab [Presence] in Serum or Plasma by Immunoassay [facility] Mitochondria M2 IgG Ab [Units/volume] in Serum [facility] Patient referral [facility] Work Phone: Immunizations Immunization Date Immunization Notes Care Provider [facility] 01-24-2023 influenza virus vaccine, unspecified formulation [employer] [facility] 04-30-2022 zoster vaccine recombinant Janneth Itzkowitz DO Work Phone: [facility] 03-22-2022 tetanus toxoid, reduced diphtheria toxoid, and acellular pertussis vaccine, adsorbed Janneth Itzkowitz DO Work Phone: [facility] 02-01-2022 influenza virus vaccine, unspecified formulation [employer] [facility] 02-01-2022 influenza, high dose seasonal, preservative-free Janneth Itzkowitz DO Work Phone: [facility] 02-17-2021 influenza virus vaccine, unspecified formulation [employer] [facility] 02-17-2021 influenza, high dose seasonal, preservative-free Janneth Itzkowitz DO Work Phone: [facility] 02-13-2017 influenza virus vaccine, unspecified formulation [employer] [facility] 02-13-2017 influenza, injectabl e, quadrivalent, contains preservative Janneth Itzkowitz DO Work Phone: [facility] 02-01-2016 influenza virus vaccine, unspecified formulation [employer] [facility] 02-01-2016 influenza, seasonal, injectable Janneth Itzkowitz DO Work Phone: [facility] 03-24-2015 zoster vaccine, live Janneth Itzkowitz DO Work Phone: [facility] 02-10-2015 influenza virus vaccine, unspecified formulation [employer] [facility] 02-10-2015 influenza, seasonal, injectable Janneth Itzkowitz DO Work Phone: [facility] 01-14-2014 influenza virus vaccine, unspecified formulation Jourdan ARRIAZA [facility] 01-14-2014 influenza, seasonal, injectable Janneth Itzkowitz DO Work Phone: [facility] 01-23-2013 influenza virus vaccine, unspecified formulation Janneth Itzkowitz DO Work Phone: [facility] Payers Date Payer Category Payer Self-pay 2022 Medicare [employer] MEDICARE A DVANTAGE AETNA MEDICARE REPLACEMENT [id number] 2022-Present [address] [place] [address] [id number] 2002 Private Health Insurance [id number] 1953 Unknown [id number] 2.16.840.1.595594.3.579.2. 727 1953 Unknown [id number] 2..840.1.339061.3.579.2. 1258 1953 Unknown [id number] 2..840.1.973721.3.579.2. 1258 1953 Unknown [id number] 2.16.840.1.967928.3.579.2. 1258 1953 Unknown [id number] 2.16.840.1.672068.3.579.2. 1258 1953 Unknown [id number] 2.16.840.1.214264.3.579.2. 1258 1953 Unknown [id number] 2.16.840.1.939558.3.579.2. 1259 1953 Unknown [id number] 2.16.840.1.843443.3.579.2. 1258 1953 Unknown [id number] 2.16.840.1.877666.3.579.2. 1258 1953 Unknown [id number] 2.16.840.1.050256.3.579.2. 1258 1953 Unknown [id number] 2.16.840.1.356583.3.579.2. 1258 1953 Unknown [id number] 2.16.840.1.208505.3.579.2. 1258 1953 Unknown [id number] 2.16.840.1.350359.3.579.2. 1258 1953 Unknown [id number] 2..840.1.325487.3.579.2. 1258 1953 Unknown [id number] 2.16.840.1.763796.3.579.2. 1258 1953 Unknown [id number] 2.16.840.1.188436.3.579.2. 1259 Unknown [id number] 2.16.840.1.567987.3.579.2. 531 Unknown [id number] 2.16.840.1.378750.3.579.2. 531 Unknown [id number] 2.16.840.1.190992.3.579.2. 531 Unknown [id number] 2.16.840.1.111755.3.579.2. 531 Unknown [id number] 2.16.840.1.995071.3.579.2. 531 Unknown [id number] 2.16.840.1.032992.3.579.2. 531 Unknown [id number] 2.16.840.1.850001.3.579.2. 531 Unknown [id number] 2.16.840.1.080143.3.579.2. 531 Unknown [id number] 2.16.840.1.367334.3.579.2. 531 Social History Date Type Detail Facility Start: 09-21-2022 End: 06-13-2023 Tobacco smoking status NHIS Ex-smoker (finding) [facility] Start: 1955 Sex Assigned At Male F [facility] Start: 05-18-2023 End: 05-31-2023 Sex Assigned At [facility] End: 04-17-1989 History of tobacco use Current smoker [facility] End: 04-17-1989 History of tobacco use Cigarette Smoker [facility] Start: 11-17-2022 Tobacco use and exposure Smokeless tobacco non-user [facility] Start: 05-18-2023 End: 05-31-2023 History of Social function [facility] Start: 1955 Sex Assigned At Not on file [facility] Tobacco smoking status No Smokin g Status Entered [facility] Goals Date Patient Goal Desired Activity /State Clinical Notes 09-21-2022 to 11-27-2023 Janneth Villegas, DO - 05/31/2023 3:15 PM ESTFredbarb Villegas, DO - 05/18/2023 2:00 PM EST Note Date & Type Note Facility 11-27-2023 Note Patient: Charles hernandez Procedure Summary Date: 11/27/23 Room / Location: [facility] Anesthesia Start: 1040 Anesthesia [...] per anesthesia protocol. No notable events documented. [facility] 11-27-2023 Note Patient: Charles hernandez Procedure Summary Date: 11/27/23 Room / Location: [facility] Anesthesia Start: 1041 Anesthesia Stop: Procedure: EGD Diagnosis: Alcoholic cirrhosis of liver with ascites (CMS/HCC) Scheduled Providers: Irena Johnson MD; Jl Kent MD; VALDEMAR Heath Responsible Provider: Jl Kent MD Anesthesia Type: MAC ASA Status: 3 Anesthesia Post [facility] Patient Monitor: direct observation Transport: uneventful Patient condition is: stable [facility] 11-27-2023 Note Patient: Charles hernandez Procedure Information Date/Time: 11/27/23 1130 Scheduled providers: Irena Johnson MD; Jl Kent MD; VALDEMAR Heath Procedure: EGD Location: [facility] Relevant Problems Cardio Denies chest pain/SOB (+) [...] Plan discussed with CAA. Additional Equipment Requests [facility] 11-08-2023 Note Refills provided [facility] 10-16-2023 Note Patient said the jason vazquez has been scheduled and is on its way. Aware they have to call [facility] every time they need a refill. Have no further questions. Will no longer follow up. Darnell Razo [facility] 10/25/23 10:27 AM [facility] 10-16-2023 Note Emma MALDONADO approved through 04/10/2024, previous approval. Pt has not been on lactulose, prescribed lactulose on the same day as Xifaxan. Based on discussion with annual income for 2 people in the household is $52,000. Should qualify for PAP. Will email provider and pt portions. Carmella Olivo, PharmD, BCACP 10/16/23 1:56 PM [facility] [phone] [facility] 10-16-2023 Note Patient assistance a pplication approved through [employer]. Approval good through 04/16/2024. Patient Case ID/Approval Number: [id number]. Notified patient and will follow up to confirm shipment/delivery is scheduled. Yamini Camarillo, [facility] 10/23/23 10:11 AM [facility] 10-16-2023 Note Have received pt. Po rtion of PAP form still waiting on prescribers portion. Re faxed the forms over to GI. Send PAP forms in once prescribers portion is signed. Darnell Razo [facility] 10/20/23 1:20 PM [facility] 10-13-2023 Note I called and discuss ed the results of his labwork with the patient. With his sodium level being slightly below baseline, we will have him repeat his labs prior to EGD tomorrow. He expressed clear understanding. If he continues to have low sodium, we may need to consider holding diuretics. [facility] 10-13-2023 Note Attestation signed by Irena Johnson [...] documentation in this note for specific details. [facility] Gastroenterology Follow-up visit CHIEF COMPLAINT Chief [...] function of stomach (more content not included)... [facility] 09-14-[address] ordered to rule o ut chronic mesenteric ischemia [facility] 08-07-2023 Note Attestation signed by Arias Jesus MD at 08/07/2023 2:45 PM I personally saw the patient with the fellow, I performed/participated in the critical/david portions of the service, I was directly involved in the management and treatment plan of the patient. I discussed the case management with the fellow and agree with the findings and plan as documented by the fellow. [facility] Gastroenterology New Patient Visit - History [...] % gel, Apply topically., Disp: , Rfl: zaxzpeoen-xvgbej-gxqzad-petrol 5-0.25-14.4-15 % cream, APPLY TO AFFECTED AREA [...] Rfl: zolpidem (A (more content not included)... [facility] 05-31-2023 History of Present illness Narrative [...] reflux disease) History of colon polyps Hypertension ([facility]) Social History Tobacco Use Smoking status: Former [...] has been scheduled. documented in this encounter [facility] 05-18-2023 History of Present illness Narrative Images from the original note were not included. Charles Blandon 1955 Charles Blandon is a 67 y.o. male presents with chief complaint of painful hemorrhoid HPI: HPI Huber states he has a hemorrhoid for the last 5-6 weeks. He was seen by Dr. Carroll's WELL[facility]PA MANAGER who referred him to our office. Huber [...] reflux disease) History of colon polyps Hypertension ([facility]/HCC) Social History Tobacco Use Smoking status: Former [...] weeks for recheck documented in this encounter [facility] 05-11-2023 Evaluation note Encounter Date Diagnosis Assessment Notes Apr, Nausea (ICD-10 - R11.0) Apr, Cirrhosis of liver (ICD-10 - K74.60) Apr, Early satiety (ICD-10 - R68.81) [facility] Other 12-28-2023 Evaluation note* Encounter Date Diagnosis Assessment Notes Treatment Notes Treatment Clinical Notes Mar, Lower abdominal pain (ICD-10 - R10.30) [facility] Other 12-27-2023 Evaluation note* Encounter Date Diagnosis [...] - R68.81) Mar, Bloating (ICD-10 - R14.0) [facility] Other 07-27-2023 Evaluation note* Encounter Date Diagnosis [...] a time. Pt advised to start probiotic ([employer]) Pt RTO 3 MONTHS [facility] Other 06-07-2023 [facility] note No data available for this section [facility] [place] Evaluation noteNo assessment information available [facility] Work Phone: Evaluation noteNo InformationNortG[facility] Parking [facility] Other Evaluation note* Diagnosis Fissure in ano Anal fissure documented in this encounter [facility] Diagnosis Fissure in ano- Primary Anal fissure documented in this encounter [facility]* Diagnosis Onset Date Resolution Status Cirrhosis acute Dyspepsia and disorder of function of stomach acute Emesis acute Esophageal dysmotility acute [facility] Work Phone: History and physical note Author Lex Carroll [facility] September 21, 2022 8:04am Note Date/Time September 21, 2022 8:04a m [facility] [address] [place] [address] Gastroenterology H&P Signed Patient: Charles Blandon MR#: [id number] : 1955 Acct:[id number] Age/Sex: 67 / M Adm Date: 3 Loc: Room: Type: [facility] Attending Dr: Lex Carroll MD Copies [...] signed by Lex Carroll MD> 09/21/22 0804 [facility] Work Phone: History general Narrative - Reported* Type Description Date Medical History hypertension Medical History GERD Surgical History gallbladder Surgical History elbow surgery Surgical History mesh placement [facility] Other Hospital Discharge instructions Additional Instructions DISCHARGE [...] problems. -Follow up with PCP. -Office number [phone].[facility] Work Phone: Hospital Discharge instructions No data available for this section [facility] Progress note No data available for this section [facility] Summary Purpose Family History No Family [...] section and content) DATE CREATED AUTHOR 10/10/2017 [facility] DATE CREATED AUTHOR AUTHOR'S ORGANIZ ATION 07/14/2023 Kirill Redman [facility] DATE CREATED AUTHOR AUTHOR'S ORGANIZ ATION 10/06/2023 [facility] DATE CREATED AUTHOR AUTHOR'S ORGANIZ ATION 11/17/2023 [facility] EPIC DATE CREATED AUTHOR AUTHOR'S ORGANIZ ATION 12/03/2023 [facility] Care Teams (unrecognized sec tion and content) [...] Active Lorna Ortega APRN Attending Provider Active Area Intelligence Technician Relationship Specialty Start Date End Date Rusty Delgado MD [address] [facility] [address] [place] [address] PCP - Aet 04/17/22 Rusty Delgado MD [address] [facility] [address] [place] [id number] PCP - General Internal Medicine 11/23/22 Area [employer] Technician Relationship Specialty Start Date End Date Rusty Delgado MD [address] [facility] [address] [place] [id number] PCP - [employer] 04/17/22 Rusty Delgado MD [address] [facility] [address] [place] [id number] PCP - General Internal Medicine 11/23/22 Team [...] Surgery Diagnoses Unspecified hemorrhoids Procedures [place] OFFICE/OUTPATIENT [facility] 60 MINUTES Lorna Ortega MD [address] [facility] [address] [place] [address] [place] [address] [facility] [address] [place] [address] Referral ID Status Reason Start Date Expiration Date V isits Requested Visits Authorized [id number] Closed Specialty Services Required 05/12/2023 11/08/2023 1 [...] BE BASED ON THE PRIMARY CLINICAL RECORDS. [employer] provides no warranty or guarantee of the accuracy or completeness of information in this document.
--- NOTE | 2023-12-08 07:42 | P.PLCN_ITS ---
History of Present Illness History of Present Illness Consult date: 12/08/23 Requesting physician: José Miguel Suarez Reason for consult: pleural effusion Chief complaint: sinus jb pleural effusion rt Narrative: 68yo male with history of JARAMILLO-associated cirrhosis presented to [facility] ER yesterday with dyspnea. He was scheduled to have a paracentesis (his 3rd overall) yesterday, but he was unable to make it due to the shortness of breath. CXR revealed a very large right-sided pleural effusion. I was consulted to evaluate the patient for a thoracentesis - he has never had one in the past. He has a remote history of tobacco abuse, quit ~35 years ago. No diagnosis of asthma or COPD. He is dyspneic with any activity. He has expiratory wheezes and a dry cough. Denies hemoptysis. No pleurisy or other chest pain. Review of Systems ROS Status of ROS 10 or more systems reviewed and unremark able except as noted in history and below [facility] Medical History (Updated 12/08/23 @ 07:48 by Devyn Winter DO) Esophageal varices ?I85.00 - Esophageal varices without bleeding (ICD-10) Hyponatremia ?E87.1 - Hypo-osmolality and hyponatremia (ICD-10) Osteoporosis ?M81.0 - Age-related osteoporosis without current pathological fracture (ICD- 10) Metabolic syndrome X ?E88.810 - Metabolic syndrome (ICD-10) Incisional hernia ?K43.2 - Incisional hernia without obstruction or gangrene (ICD-10) Diabetes ?E11.9 - Type 2 diabetes mellitus without complications (ICD-10) HTN (hypertension) ?I10 - Essential (primary) hypertension (ICD-10) GERD (gastroesophageal reflux disease) ?K21.9 - Gastro-esophageal reflux disease without esophagitis (ICD-10) Weight loss ?R63.4 - Abnormal weight loss (ICD-10) Barretts esophagus ?K22.70 - Tipton's esophagus without dysplasia (ICD-10) Pleural effusion, bilateral ?J90 - Pleural effusion, not elsewhere classified (ICD-10) Liver mass ?R16.0 - Hepatomegaly, not elsewhere classified (ICD-10) Cirrhosis of liver ?K74.60 - Unspecified cirrhosis of liver (ICD-10) Ascites ?R18.8 - Other ascites (ICD-10) Surgical History (Updated 10/23/23 @ 14:57 by Sarina Benjamin) S/P abdominal paracentesis ?Z98.890 - Other specified postprocedural states (ICD-10) Hx of cholecystectomy ?Z90.49 - Acquired absence of other specified parts of digestive tract (ICD- 10) H/O colonoscopy ?Z98.890 - Other specified postprocedural states (ICD-10) H/O esophagogastroduodenoscopy ?Z98.890 - Other specified postprocedural states (ICD-10) Family History (Updated 12/07/23 @ 18:56 by Irma Smith) Mother Family history of COPD (chronic obstructive pulmonary disease) Family history of hypertension Father Family history of hypertension Social History (Updated 12/07/23 @ 18:58 by Irma Smith) Within the past year, how often did you have a drink containing alcohol: never Within the past year, how often did you have six or more drinks on one occasion: never Score interpretation: A score less than 4 is consistent with normal alcohol consumption. 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 Highest level of school completed/degree received: high school graduate Are you now , , , , never or living with a partner: In a typical week, how many times do you talk on the telephone with family, friends, or neighbors: once per week How often do you get together with friends or relatives: once per week How often do you attend episcopalian or muslim services: never Do you belong to any clubs or organizations such as episcopalian groups unions, fraternal or athletic groups, or school groups: no Total score: 1 Score interpretation: A score of less than or equal to 1 indicates the most socially isolated. Little interest or pleasure in doing things: not at all Feeling down, depressed, or hopeless: not at all Feel stressed/tense/nervous/anxious/difficulty sleeping: not at all Meds Home Medications and Allergies Home Medications ?Medication ?Instructions ?Recorded ?Confirmed ?Type baclofen 20 mg tablet 20 mg PO BEDTIME 10/03/23 12/07/23 History calcium carbonate 600 mg-vitamin 1 tab PO DAILY 10/03/23 12/07/23 History D3 5 mcg (200 unit) tablet famotidine 40 mg tablet 40 mg PO QAM 10/03/23 12/07/23 History furosemide 40 mg tablet 40 mg PO DAILY 10/03/23 12/07/23 History lansoprazole 30 mg capsule,delayed 30 mg PO BID 10/03/23 12/07/23 History release multivitamin 1 tab PO DAILY 10/03/23 12/07/23 History spironolactone 100 mg tablet 100 mg PO DAILY 10/03/23 12/07/23 History carvedilol 3.125 mg tablet 3.125 mg PO BID 12/07/23 12/07/23 History rifaximin 550 mg tablet (Xifaxan) 550 mg PO BID 12/07/23 12/07/23 History Allergies Allergy/AdvReac Type Severity Reaction Status Date / Time No Known Drug Allergies Allergy Verified 12/07/23 13:50 Exam Constitutional Vital Signs, click to edit/add: Last Vital Signs Temp 98.2 F 12/08/23 07:36 Pulse 52 L 12/08/23 07:36 Resp 15 12/08/23 07:36 BP 106/69 12/08/23 07:36 Pulse Ox 94 L 12/08/23 07:36 O2 Del Method Nasal Cannula 12/08/23 07:36 O2 Flow Rate 2 12/08/23 07:36 Other: Patient appears short of breath even laying in bed. Audible wheezes. Dry cough. HENPR Common normals: normocephalic Chest Common normals: inspection of chest normal Respiratory Other: Near-absent breath sounds on the right, even at the apex. Dullness to percussion and egophony are present on the right. The left is clear and diminished in the base. Cardio Rate: regular rate Rhythm: regular rhythm GI Other: ascites Extremity Common normals: normal to inspection Neuro Common normals: oriented x3 Sensorium/orientation: awake and alert Psych Appearance: grossly normal Attitude: calm and engaged Activity/motor behavior: appropriate eye contact Speech: normal speech Results Laboratory Findings ABG, PT/INR, D-dimer: PT/INR, D-dimer PT 12.8 sec (9.0-11.6) H 12/07/23 13:39 INR 1.23 12/07/23 13:39 Abnormal lab findings: Abnormal Labs 12/07/23 13:39 RBC 3.93 L Hgb 13.2 L Hct 39.4 L MCV 100.3 H Lymph % (Auto) 17.1 L Lymph # (Auto) 0.8 L PT 12.8 H Est GFR (Non-Af Amer) 59 L Glucose 109 H Total Bilirubin 2.0 H Direct Bilirubin 0.8 H* AST 53 H Alkaline Phosphatase 121 H Ammonia 35 H Albumin 2.5 L Diagnostic Findings Chest x-ray: report reviewed and image reviewed Assessment and Plan Assessment and Plan (1) Pleural effusion, right: Assessment and Plan: Very large pleural effusion on the right. Present on abdomen/pelvis CTA from 09/25/2023 but much larger in size; a small left pleural effusion is present at that time. This is associated with the ascites (hepatic hydrothorax) until ruled out otherwise. The patient is symptomatic, so discussed a diagnostic and therapeutic ultrasound guided thoracentesis. Discussed risks including pain, bleeding, infection, and pneumothorax. The patient voiced he would like to proceed with the thoracentesis; informed consent was obtained. The thoracentesis was completed with 2L of straw-colored fluid removed (please see that separate report); recheck with ultrasound showed a large amount of fluid remained - the procedure was aborted d/t the patient coughing. I explained to the patient that this may be a temporary measure as the cause for the fluid accumulation is not being addressed with this procedure (i.e. cirrhosis). He is at risk of having the pleural effusion return and he may need a repeat thoracentesis in the future. If multiple thoracenteses are required, may need to consider chemical pleurodesis, though the success rate of that is ~50%. I recommend that the patient F/U outpatient with me in ~2-3 weeks to review lab results and discuss a plan of care to manage the pleural fluid. He voiced agreement. 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 Treatment of the liver ultimately affects the pleural fluid accumulation. (3) History of tobacco abuse: Assessment and Plan: Quit ~35 years ago. If wheezes, dyspnea, or coughing do not improve despite thoracentesis, need to consider underlying obstructive lung disease and a PFT would be indicated.
--- NOTE | 2023-12-08 07:58 | P.ON_ITS ---
Date of procedure: 12/08/23 Procedure: Procedure: Diagnostic & therapeutic ultrasound-guided right-sided thoracentesis Pre/Post-Diagnosis: Very large right pleural effusion Surgeon: Devyn Winter DO Anesthesia: Lidocaine 1% 10mL Estimated Blood Loss: <1mL Specimens: Pleural fluid sent of analysis Complications: None Consent: Informed consent was obtained after risks, benefits, and alternatives were discussed with the patient. Time out was initiated to confirm the correct patient, site, and procedure with all present voicing in the affirmative. Procedure: The patient was placed in the seated position in the hospital bed. Ultrasound was utilized to identify the hemidiaphragm and pleural fluid on the right. Tongue sign was present on ultrasound, indicating a very large pleural effusion. An appropriate drainage site was marked via marker pen, based on jessica omical landmarks and the ultrasound findings. Chloraprep was used to cleanse the lower right hemithorax. Sterile drapes were applied. Lidocaine 1% 10mL was injected, first as superficial skin wheal, and then using aspiration technique, advanced over the superior aspect of the lower rib subcutaneously at the periosteum and then parietal pleura. Easy return of straw-colored pleural fluid was aspirated. Next, a small incision was made to the anesthetized area with the blade provided in the prepackaged thoracentesis kit. Hemostasis was achieved. A [id number] apparatus was advanced as a unit over the superior aspect of the lower rib into the pleural space with great care to prevent further progression of the needle into the pleural cavity. The needle was then retracted completely and discarded. A vacuum collection system was attached to the catheter and pleural fluid was collected for analysis. A total of 2000mL of pleural fluid was removed. The procedure was terminated due to patient coughing. The catheter was then removed during an expiratory breath- hold maneuver. The patient tolerated the procedure well. A post-procedural portable chest x-ray was ordered to assess adequacy of pleural fluid drainage and to evaluate for iatrogenic pneumothorax; results are pending at the time of this report. Surgeon: Devyn Winter
--- NOTE | 2023-12-08 08:05 | XR_ITS ---
The [address] [address] Patient Name: LOYD BLANDON MRN: [id number] date: 1955 Sex: M Assigned Patient Location: [place] Current Patient Location: [place] Accession/Order Number: [id number] Exam Date: 12/08/2023 08:00 Report Date: 12/08/2023 08:13 At the request of: KARY JOHNSON Procedure: XR chest 1V EXAMINATION: XR chest 1V HISTORY: Right pleural effusion - s/p thoracentesis (2L) COMPARISON: XR chest 12/07/2023 FINDINGS: LUNGS: Completely pass calcifications lower half the right hemithorax and dense opacities within upper half. Left lung is clear. VASCULATURE: No increased pulmonary vasculature. PLEURA: Large right pleural effusion. CARDIAC: Partially obscured. MEDIASTINUM: No visible mass or adenopathy. BONES: No fracture or visible bone lesion. OTHER: Negative. XR/XR chest 1V IMPRESSION: 1. Large right pleural effusion with marked atelectasis versus infiltrates. Stable to slightly improved. Electronically authenticated by: WARD FERRER Date: 12/08/2023 08:13
[2023-12-08] MEDS: FAMOTIDINE 20 MG TABLET 40 MG PO (09:48)
[2023-12-08] MEDS: MULTIVITAMIN TABLET 1 TAB PO (09:48)
[2023-12-08] MEDS: RIFAXIMIN 550 MG TABLET PO (09:48)
[2023-12-08] MEDS: CALCIUM CARBONATE 600 MG/VITAMIN D3 400 IU TABLET 1 TAB PO (09:49)
[2023-12-08] MEDS: OMEPRAZOLE 40 MG CAPSULE.DR PO (09:49)
[2023-12-08] MEDS: SPIRONOLACTONE 100 MG TABLET PO (09:49)
[2023-12-08] MEDS: FUROSEMIDE 40 MG/4 ML VIAL IVP (09:49)
--- NOTE | 2023-12-08 10:18 | P.HP_ITS ---
HPI H&P: HPI History of Present Illness Chief complaint: sinus jb pleural effusion rt Narrative: This is a delayed note for my encounter on 12/07/2023. 68-year-old male with recent diagnosis of alcoholic liver cirrhosis who has had 2 paracentesis already was scheduled for outpatient abdominal paracentesis but was sent to ER as he was noted to have shortness of breath, and was unable to lay down because of dyspnea. Patient reports that he has been feeling progressively short of breath for past couple of days associated with orthopnea and paroxysmal nocturnal dyspnea. Patient was sent to ER where his workup indicated large right-sided pleural effusion. He was admitted for observation for symptomatic large pleural effusion so that he can have thoracentesis for symptomatic relief. Patient was recently seen by GI provider and is established with gastroenterology for liver cirrhosis. Pulmonology was consulted and plan is to perform diagnostic and therapeutic thoracentesis in the morning. Coags ordered to ensure he has no high risk of bleeding. I will start him on IV Lasix 40 twice daily to help with diuresis and improve his symptoms Opioid HPI Opioid Management Most Recent Pain and Opioid Data: Last Pain Assessment 12/08/23 10:00 Last ORT Total Score 0 12/07/23 18:36 Last ORT Risk Category Low Risk 12/07/23 18:36 Review of Systems ROS Status of ROS 10 or more systems reviewed and unremark able except as noted in history and below [facility] Medical History (Updated 12/08/23 @ 10:33 by Shaikh Iam MD) Esophageal varices ?I85.00 - Esophageal varices without bleeding (ICD-10) Hyponatremia ?E87.1 - Hypo-osmolality and hyponatremia (ICD-10) Osteoporosis ?M81.0 - Age-related osteoporosis without current pathological fracture (ICD- 10) Metabolic syndrome X ?E88.810 - Metabolic syndrome (ICD-10) Incisional hernia ?K43.2 - Incisional hernia without obstruction or gangrene (ICD-10) Diabetes ?E11.9 - Type 2 diabetes mellitus without complications (ICD-10) HTN (hypertension) ?I10 - Essential (primary) hypertension (ICD-10) GERD (gastroesophageal reflux disease) ?K21.9 - Gastro-esophageal reflux disease without esophagitis (ICD-10) Weight loss ?R63.4 - Abnormal weight loss (ICD-10) Barretts esophagus ?K22.70 - Tipton's esophagus without dysplasia (ICD-10) Pleural effusion, bilateral ?J90 - Pleural effusion, not elsewhere classified (ICD-10) Liver mass ?R16.0 - Hepatomegaly, not elsewhere classified (ICD-10) Ascites ?R18.8 - Other ascites (ICD-10) Surgical History (Updated 10/23/23 @ 14:57 by Sarina Benjamin) S/P abdominal paracentesis ?Z98.890 - Other specified postprocedural states (ICD-10) Hx of cholecystectomy ?Z90.49 - Acquired absence of other specified parts of digestive tract (ICD- 10) H/O colonoscopy ?Z98.890 - Other specified postprocedural states (ICD-10) H/O esophagogastroduodenoscopy ?Z98.890 - Other specified postprocedural states (ICD-10) Family History (Updated 12/07/23 @ 18:56 by Irma Smith) Mother Family history of COPD (chronic obstructive pulmonary disease) Family history of hypertension Father Family history of hypertension Social History (Updated 12/07/23 @ 18:58 by Irma Smith) Within the past year, how often did you have a drink containing alcohol: never Within the past year, how often did you have six or more drinks on one occasion: never Score interpretation: A score less than 4 is consistent with normal alcohol consumption. 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 Highest level of school completed/degree received: high school graduate Are you now , , , , never or living with a partner: In a typical week, how many times do you talk on the telephone with family, friends, or neighbors: once per week How often do you get together with friends or relatives: once per week How often do you attend hinduism or jew services: never Do you belong to any clubs or organizations such as hinduism groups unions, fraternal or athletic groups, or school groups: no Total score: 1 Score interpretation: A score of less than or equal to 1 indicates the most socially isolated. Little interest or pleasure in doing things: not at all Feeling down, depressed, or hopeless: not at all Feel stressed/tense/nervous/anxious/difficulty sleeping: not at all Meds Home Medications and Allergies Home Medications ?Medication ?Instructions ?Recorded ?Confirmed ?Type baclofen 20 mg tablet 20 mg PO BEDTIME 10/03/23 12/07/23 History calcium carbonate 600 mg-vitamin 1 tab PO DAILY 10/03/23 12/07/23 History D3 5 mcg (200 unit) tablet famotidine 40 mg tablet 40 mg PO QAM 10/03/23 12/07/23 History furosemide 40 mg tablet 40 mg PO DAILY 10/03/23 12/07/23 History lansoprazole 30 mg capsule,delayed 30 mg PO BID 10/03/23 12/07/23 History release multivitamin 1 tab PO DAILY 10/03/23 12/07/23 History spironolactone 100 mg tablet 100 mg PO DAILY 10/03/23 12/07/23 History carvedilol 3.125 mg tablet 3.125 mg PO BID 12/07/23 12/07/23 History rifaximin 550 mg tablet (Xifaxan) 550 mg PO BID 12/07/23 12/07/23 History Allergies Allergy/AdvReac Type Severity Reaction Status Date / Time No Known Drug Allergies Allergy Verified 12/07/23 13:50 Exam Constitutional Vital Signs, click to edit/add: Last Vital Signs Temp 98.2 F 12/08/23 07:36 Pulse 52 L 12/08/23 07:45 Resp 15 12/08/23 07:45 BP 106/69 12/08/23 07:36 Pulse Ox 94 L 12/08/23 07:36 O2 Del Method Nasal Cannula 12/08/23 07:36 O2 Flow Rate 2 12/08/23 07:36 Documenting provider has reviewed patient's vital signs: yes Common normals: no apparent distress and oriented x3 General appearance: cooperative HENCT Common normals: normocephalic and head/scalp atraumatic Head and scalp: normocephalic and atraumatic Eye Common normals: conjunctivae normal and no scleral icterus Conjunctiva: conjunctiva(e) normal Respiratory Common normals: no use of accessory muscles Effort & inspection: able to speak in complete sentences and tachypneic Auscultation: diminished lung sounds Cardio Common normals: regular rate, S1 normal heart sound and S2 normal heart sound Rate: regular rate Heart sounds: S1 normal and S2 normal GI Common normals: non-tender and no hepatosplenomegaly Inspection: abdominal distension and fluid wave present Extremity Common normals: no clubbing, cyanosis or edema Neuro Common normals: oriented x3, moves all extremities and no focal motor deficits Psych Common normals: mental status grossly normal, denies hallucinations, denies homicidal ideation and denies suicidal ideation Results Labs Labs: Short CBC 12/07/23 Range/Units 13:39 WBC 4.9 (4.0-11.0) 10^3/uL Hgb 13.2 L (14.0-18.0) g/dL Hct 39.4 L (42.0-54.0) % Plt Count 154 (150-450) 10^3/uL BMP 12/07/23 13:39 Sodium 136 Potassium 4.5 Chloride 101 Carbon Dioxide 27.1 BUN 12.0 Creatinine 1.22 Glucose 109 H Calcium 9.0 Liver Function 12/07/23 Range/Units 13:39 Total Bilirubin 2.0 H (0.2-1.0) mg/dL Direct Bilirubin 0.8 H* (0.0-0.2) mg/dL AST 53 H (15-37) U/L ALT 29 (16-63) U/L Alkaline Phosphatase 121 H (46-116) U/L Albumin 2.5 L (3.4-5.0) g/dL Assessment and Plan Assessment and Plan (1) Pleural effusion, right: Assessment and Plan: Presents for shortness of breath due to large right pleural effusion. Will start on IV Lasix to help improve with volume status. Patient will need thoracentesis tomorrow. Consulted pulmonology. (2) Liver cirrhosis secondary to JARAMILLO (nonalcoholic steatohepatitis): Assessment and Plan: Liver cirrhosis secondary to JARAMILLO. History of hepatic encephalopathy and is on rifaximin for it. Recently started on carvedilol but not tolerating it because of bradycardia.. He also has evidence of large abdominal ascites and will need paracentesis. Once thoracentesis has been performed and he is feeling better symptomatically, we can proceed with abdominal paracentesis (3) Sinus bradycardia: Assessment and Plan: Mild asymptomatic bradycardia noted. Recently started on carvedilol. Will stop carvedilol while in the patient. (4) Ascites: Assessment and Plan: Large abdominal ascites secondary to liver cirrhosis. Will need paracentesis once thoracentesis has been performed Qualifiers: Ascites type: other type Qualified Code(s): R18.8 - Other ascites (5) History of tobacco abuse: Assessment and Plan: Discussed tobacco abuse and risk associated with it. Defer to PCP once patient is discharged.
--- NOTE | 2023-12-08 10:31 | CM.NOTE ---
Rounds made with Dr. Vitale. Plan for discharge later today after paracentesis. Mr. Stewart agrees with plan.
--- NOTE | 2023-12-08 13:25 | US_ITS ---
[address] [address] Patient Name: LOYD BLANDON MRN: [id number] date: 1955 Sex: M Assigned Patient Location: [place] Current Patient Location: Accession/Order Number: [id number] Exam Date: 12/08/2023 15:00 Report Date: 12/08/2023 16:06 At the request of: SHAIKH JAI Procedure: US paracentesis abd w/image EXAMINATION: US paracentesis abd w/image HISTORY: abdominal ascites secondary to cirrhosis COMPARISON: No relevant comparison available. DESCRIPTION: Informed consent was obtained. The patient was prepped and draped in standard sterile fashion. Ultrasound-guided paracentesis was performed in the usual sterile manner using 1% Xylocaine. FINDINGS: SITE: Right lower quadrant NEEDLE: Paracentesis 8 Fr. catheter over 18 gauge needle MEDICATION: 8 cc 1% buffered lidocaine for local anesthesia FLUID DESCRIPTION: Light yellow, clear FLUID VOLUME: 3.4 L COMPLICATIONS: None LABORATORY: Pending OTHER: Negative. US/US paracentesis abd w/image IMPRESSION: Technically successful diagnostic paracentesis Electronically authenticated by: AUTUMN FARNSWORTH Date: 12/08/2023 16:06
[2023-12-08] MEDS: LIDOCAINE HCL 10 ML, SODIUM BICARBONATE 1 MEQ INJ (15:10)
--- NOTE | 2023-12-08 15:11 | PM.DS1 ---
DS: Providers Provider Date of admission: 12/07/23 17:40 Primary care physician: SANJAY DELGADO Admitting clinician: Shaikh Iam Attending physician on admission: Shaikh Iam Consults: 12/07/23 15:21 Consult to Pulmonology Routine Consulting Provider: Devyn Winter Reason for consultation: pleural effusion Attending physician on discharge: Shaikh Iam Discharging clinician: Shaikh Iam Anticipated date of discharge: 12/08/23 DS: Diagnosis Discharge Diagnosis (1) Pleural effusion, right: (2) Liver cirrhosis secondary to JARAMILLO (nonalcoholic steatohepatitis): (3) Sinus bradycardia: (4) Ascites: Qualifiers: Ascites type: other type Qualified Code(s): R18.8 - Other ascites (5) History of tobacco abuse: DS: Summary Hospital Course Hospital Course: 68-year-old male with recent diagnosis of alcoholic liver cirrhosis who has had 2 paracentesis already was scheduled for outpatient abdominal paracentesis but was sent to ER as he was noted to have shortness of breath, and was unable to lay down because of dyspnea. Patient reported to me progressively worsening shortness of breath for past couple of days that is associated with orthopnea and paroxysmal nocturnal dyspnea. Work up in ER revealed right sided large pleural effusion. He was admitted overnight diagnostic and therapeutic thoracentesis. Patient was seen earlier in the morning and had thoracentesis with about 2 L Fluid aspirated/taken out. Thoracentesis was aborted as he started to get uncomfortable during the procedure. He was instructed to f/u with Pulm as outpatient and has an holly in [address] Winter. He also under paracentesis with about 3.4 L of ascitic fluid aspirated. Patient stable for discharge medically and will need close f/u as outpatient. Status at Discharge Functional status at discharge: independent ambulation Time Spent with Patient Time attestation: Total time spent providing and/or coordinating discharge services: Time spent: greater than 30 minutes Exam Constitutional Vital Signs, click to edit/add: Last Vital Signs Temp 98.1 F 12/08/23 13:23 Pulse 54 L 12/08/23 13:23 Resp 18 12/08/23 13:23 BP 109/72 12/08/23 13:23 Pulse Ox 94 L 12/08/23 13:23 O2 Del Method Room Air 12/08/23 13:23 O2 Flow Rate 2 12/08/23 07:36 Documenting provider has reviewed patient's vital signs: yes Common normals: no apparent distress and oriented x3 General appearance: cooperative HENMT Common normals: normocephalic and head/scalp atraumatic Head and scalp: normocephalic and atraumatic Eye Common normals: conjunctivae normal and no scleral icterus Conjunctiva: conjunctiva(e) normal Respiratory Common normals: normal respiratory effort and no use of accessory muscles Effort & inspection: able to speak in complete sentences Auscultation: diminished lung sounds Cardio Common normals: regular rate, S1 normal heart sound and S2 normal heart sound Rate: regular rate Heart sounds: S1 normal and S2 normal GI Common normals: non-tender and no hepatosplenomegaly Inspection: abdominal distension and fluid wave present Extremity Common normals: no clubbing, cyanosis or edema Neuro Common normals: oriented x3, moves all extremities and no focal motor deficits Psych Common normals: mental status grossly normal, denies hallucinations, denies homicidal ideation and denies suicidal ideation DS: Data Data Completed and Pending Labs on day of discharge: Labs from last 24 hours 12/07/23 13:39 PT 12.8 H INR 1.23 APTT 30.3 Discharge Plan Discharge Disposition: Home, Self-Care Condition: Fair Discharge Medications: Continued baclofen 20 mg tablet 20 mg PO BEDTIME famotidine 40 mg tablet 40 mg PO QAM lansoprazole 30 mg capsule,delayed release(DR/EC) 30 mg PO BID spironolactone 100 mg tablet 100 mg PO DAILY calcium carbonate-vitamin D3 600 mg-5 mcg (200 unit) tablet 1 tab PO DAILY multivitamin Tablet 1 tab PO DAILY Xifaxan 550 mg tablet 550 mg PO BID Changed furosemide 40 mg tablet 40 mg PO BID Qty: 0 0RF Discontinued carvedilol 3.125 mg tablet 3.125 mg PO BID Activity: increase activity as tolerated Diet: advance to your usual diet Print Language: Romansh Patient Instructions: Pleural Effusion (DC), Ascites (DC), Paracentesis (DC), Thoracentesis (DC) Forms: Portal Instructions Follow Up Appointments: Please call Dr. Winter (Pulmonology) at [facility] to schedule a follow up for 2 weeks following discharge. [phone] @ 1:30pm with JOEL Geronimo (Dr. Delgado's office) [phone] Discharge Date/Time: 12/08/23 15:58
--- NOTE | 2023-12-08 16:18 | SUR.PREOP ---
0930 spoke with Irma BAILEY to confirm time of procedure.
--- NOTE | 2023-12-08 16:31 | PC.NURSE ---
[address] with clear yellow fluid removed. Pt tolerating well. Removed total of 3.4 liters and paracentesis catheter removed. Pressure held to site for 3 minutes and no fluid leakage noted. Applied vaseline gauze and Lg Tegaderm.
[2023-12-09 12:11] LABS: Clarity, Serous Clear (Clear); Color, Serous Yellow (.); Eosinophils, Serous 0 % (Not Estab.); Lymphocytes, Serous 32 % (Not Estab.); Macrophages, Serous 66 % (Not Estab.); Neut, Serous 2 % (0-24); Nucleated Cells, Serous 135 /mm3 (0-499); RBC, Serous Rare /uL (Not Estab.)
[2023-12-09 14:11] LABS: Glucose, Body Fluid 116 mg/dL (.); LD, Body Fluid 58 IU/L (.); Protein, Body Fluid 1.6 g/dL (.); Triglycerides, Fluid 20 mg/dL (Not Estab.)
--- NOTE | 2023-12-11 15:05 | CM.DCFOLLOWU ---
Person spoke with: patient How are you feeling? starting to feel short of breath How is your pain? no pain, starting to feel short of breath Did you understand your discharge instructions? yes Do you have any questions about your discharge instructions? no Were you given any prescriptions at discharge? no Were you able to get your prescriptions filled? N/A Do you understand how to take your medications as ordered? yes Do you have any questions about your follow up appointment and do you plan to keep your follow up appointment? no questions, reviewed follow up Is there anything else that you would like to discuss? no Questions/Comments/Concerns/Other: none
== END 2023-12-08 15:58 | disposition home or self-care (01) ==
LOC: ER 15:24 → MS 12-08 06:01
PROVIDERS: Internal Medicine; Radiology Diagnostic Radiology; Admitting Provider Internal Medicine; Emergency Provider Emergency Medicine; PCP Internal Medicine; Visit Provider Internal Medicine
DX: J90 Pleural effusion, not elsewhere classified (principal); K75.81 Nonalcoholic steatohepatitis (NASH); R00.1 Bradycardia, unspecified; Z79.899 Other long term (current) drug therapy; R18.8 Other ascites; K74.60 Unspecified cirrhosis of liver; Z87.891 Personal history of nicotine dependence; Z53.8 Procedure and treatment not carried out for other reasons
CPT/HCPCS: 36415; 49083; 71045; 80048; 80076; 82140; 82150; 82945; 83615; 83690; 83986; 84157; 84478; 84484; 85025; 85610; 85730; 87070; 87205; 88112; 88305; 89050; 89051; 93005; 94761; 96374; 96376; 99285; G0378; J1940

== ENCOUNTER 2023-12-13 10:28 | Outpatient (OUT) | payer MEDICARE, SELFPAY ==
--- OUTSIDE RECORDS SUMMARY | 2023-12-13 10:49 | XMS_ITS | CCD ---
Author Organization [facility] Care Team Providers Care Clock Mechanic Name Role Phone CHEMA, TANISHA Unavailable Unavailable [...] Attending Provider DO Janneth Villegas Attending Provider [phone] JUDITH Delgado Primary Care Provider TALA Ortega Attending Provider MD Minh Griffith Attending Provider DO Janneth Villegas Attending Provider RUSTY DELGADO Primary Care Physician [phone] Janneth Villegas Referring Unavailable Jourdan ARRIAZA Attending Unavailable JUDITH Delgado Primary Care Provider [phone] MD Ward Stern Attending Provider ITZKOWITZ, JANNETH H Attending Unavailable SCTAYE LORNA Referring Unavailable ITZKOWITZ, JANNETH H Attending Unavailable ITZKOWITZ, JANNETH H Attending Unavailable ITZKOBERNICETZ, JANNETH H Attending Unavailable FABY ECHEVARRIA M Attending Unavailable BENEDICT, WARD Attending Unavailable HEMFABY RACHEL M Referring Unavailable BENEDICT, WARD Referring Unavailable BENEDICT, WARD Referring Unavailable LYNDSEY PATEL Attending Unavailable BENEDICT, WARD Referring Unavailable ROSALINO LAMAS Attending Unavailable RUSTY DELGADO Attending Unavailable RUSTY DELGADO Attending Unavailable RUSTY DELGADO B Referring Unavailable RUSTY DELGADO Attending [facility]available [facility] Attending Provider JESUS, ARIAS Referring Unavailable JESUS, ARIAS Referring Unavailable JOHNSON, IRENA Referring Unavailable JOHNSON, IRENA Attending Unavailable JOHNSON, IRENA Admitting Unavailable JESUS, ARIAS Admitting Unavailable JESUS, ARIAS Referring Unavailable JESUS, ARIAS Attending Unavailable JOHNSON, IRENA Attending Unavailable JESUS, ARIAS Attending Unavailable RESEARCH, GENERIC Referring Unavailable [facility], Devyn Admitting Unavailable [facility] Attending Unavailable Rusty Delgado Primary Care Unavailable Delgado, Rusty Primary Care Unavailable Itzkowitz, Janneth Attending Unavailable Itzkowitz, Janneth Admitting Unavailable Delgado, Rusty Primary Care Unavailable Ward Stern Admitting Unavailable TanvirebWard wright Attending Unavailable ZieberWard Admitting Unavailable ZiWard edwards Attending Unavailable Delgado, Rusty Primary Care Unavailable Delgado, Rusty Primary Care Unavailable Scovanner Lorna M Admitting Unavailable Scovanner Lorna M Attending Unavailable Delgado Rusty Primary Care Unavailable Scovanner Lorna M Admitting Unavailable Scovanner Lorna M Attending Unavailable Delgado, Rusty Primary Care Unavailable Itzkowitz, Janneth Admitting Unavailable Itzkobernicetz, Janneth Attending Unavailable Danny Rusty Primary Care Unavailable Minh Grifftih Admitting Unavailsaleem e Minh Griffith Attending Unavailabl e [facility] She[facility] Attending Provider Allergies Allergy Classification Reported Allergen(s) Allergy Type Date of Onset Reaction(s) Facility (1 source) sulfamethoxazole / trimethoprim; Translations: [SULFAMETHOXAZOLE-TR IMETHOPRIM] Drug Allergy 5 [facility] Medications Current Medications Medication Drug Class(es) Dates Sig (Normalized) Sig (Original) atropine sulfate 0.025 mg / diphenoxylate hydrochloride 2.5 mg oral tablet (20 sources) Anticholinergic, Cholinergic Muscarinic Antagonist, Antidiarrheal Start: [...] 0 Active baclofen 20 mg oral tablet (5 sources) gamma-Aminobutyric Acid-ergic Agonist Start: 07-05-2023 take 20 mg by mouth once daily at bedtime Baclofen Active 20 MG PO Daily at bedtime July 05, 2023 12:00am calcium carbonate 1250 mg / cholecalciferol 125 unt oral tablet (6 sources) Vitamin D Start: 06-02-2023 take 1 [...] esomeprazole 40 mg delayed release oral capsule (18 sources) Proton Pump Inhibitor Start: 06-02-2023 Esomeprazole [...] Sep, Active famotidine 40 mg oral tablet (20 sources) Histamine-2 Receptor Antagonist Start: 06-02-2023 End: 07-05-2023 take 1 tablet by mouth twice daily Famotidine Active 40 MG PO Twice daily July 05, 2023 9:29am FreeTextSi tablet Orally [...] 05/18/2023 Discontinued furosemide 40 mg oral tablet (15 sources) Loop Diuretic Start: 06-02-2023 take 1 [...] 05/10/2023 Active ibuprofen 800 mg oral tablet (6 sources) Nonsteroidal Anti-inflammatory Drug Start: 06-02-2023 take 800 mg by mouth three times daily Ibuprofen Active 800 MG PO Three times daily June 02, 2023 1:00am lansoprazole 30 mg delayed release oral capsule (5 sources) Proton Pump Inhibitor Start: 07-05-2023 take 30 mg by mouth twice daily Lansoprazole Active 30 MG PO Twice daily 60 July 05, 2023 12:00am lisinopril 20 mg oral tablet (20 sources) Angiotensin Converting Enzyme Inhibitor Start: 09-19-2022 take 20 mg by mouth once daily in the morning Lisinopril Active 20 MG PO Every morning September 19, 2022 12:00am Multiple Vitamins-Minerals (Multi For Him) tablet (3 sources) Multiple Vitamins-Minerals (Multi For Him) tablet Daily. 0 Active Multivitamin (Daily Multi-Vitamin) tablet (6 sources) Start: 06-02-2023 take 1 tablet by mouth once daily Multivitamin (Daily Multi-Vitamin) tablet Active 1 TAB PO Daily June 02, 2023 1:00am Start: 06-02-2023 take 1 tablet by vlad th once daily Multivitamin (Daily Multi-Vitamin) tablet Active 1 TAB PO Daily June 02, 2023 12:00am ondansetron 4 mg oral tablet (10 sources) Serotonin-3 Receptor Antagonist Start: 07-05-2023 take 4 mg by mouth three times daily Ondansetron Hcl Active 4 MG PO Three times daily July 05, 2023 9:32am Start: 07-05-2023 End: 07-05-2023 take 4 mg by mouth once daily Ondansetron Hcl Disconti nued 4 MG PO Daily July 05, 2023 12:00am July 05, 2023 9:32am spironolactone 100 mg oral tablet (15 sources) Aldosterone Antagonist Start: 06-02-2023 take 1 [...] / oxyCODONE hydrochloride 5 mg oral tablet (5 sources) Opioid Agonist Start: 06-13-2023 End: 07-05-2023 take 1 tablet by mouth every six hours Oxycodone-Acetami nophen (Percocet) 5-325 mg tablet Discontinued 1 TAB PO Q6H 28 7 June 13, 2023 July 05, 2023 9:01am bawxtal-mdajubsys-jujv 333-133-5 MG per tablet (1 source) End: 05-18-2023 calcium-magnesium -zinc 333-133-5 MG per tablet Take 1 tablet by mouth in the morning and 1 tablet at noon and 1 tablet in the evening. Take with meals. 0 05/18/2023 Discontinued hydroCHLOROthiazide 25 mg / triamterene 37.5 mg oral capsule (16 sources) Potassium-spari ng Diuretic, Thiazide Diuretic Start: 06-13-2023 End: 07-05-2023 Triamterene-[place] chlorothiazid Discontinued CAP June 13, 2023 1:00am [...] Discontinued metoprolol tartrate 25 mg oral tablet (13 sources) beta-Adrenergic Nikunj Start: 09-19-2022 End: 06-02-2023 take 25 mg by mouth twice daily Metoprolol Tartrate Discontinued 25 MG PO Twice daily September 19, 2022 12:00am June 02, 2023 11:11am Metoprolol Tartr ate Active omeprazole 40 mg delayed release oral capsule (20 sources) Proton Pump Inhibitor Start: 09-21-2022 End: [...] Classification Problem Date Documented Da te Episodic/Chronic Alcohol-related disorders (2 sources) Alcoholic cirrhosis of [...] Onset: 3 Resolved: 3 11-17-2022 Chronic Hemorrhoids (5 sources) Internal hemorrhoids grade II; Translations: [Second degree hemorrhoids] 06-13-2023 Episodic Nausea and vomiting (15 sources) Nausea; Translations: [Nausea] Onset: 4 Episodic [...] Episodic Other disorders of stomach and duodenum (5 sources) Disorder of function of stomach; Translations: [...] Onset: 3 11-17-2022 Chronic Other liver diseases (1 source) Fatty (change of) liver, not elsewhere classified Chronic Other liver diseases (12 sources) Cirrhosis of liver; Translations: [Unspecified cirrhosis [...] obstruction or gangrene] Onset: 12-06-2012 03-21-2023 Episodic Abdominal pain (6 sources) Lower abdominal pain, unspecified; Translations: [Generalized abdominal pain] Onset: 05-23-2023 Episodic Deficiency and other anemia (2 sources) Anemia, unspecified; Translations: [Anemia, unspecified] Onset: 08-07-2023 Episodic Other connective tissue disease (1 source) Pain in left toe(s); Translations: [Pain in left toe(s)] Onset: 01-04-2017 Episodic Other gastrointestinal disorders (3 sources) Abdominal distension (gaseous); Translations: [Abdominal distension (gaseous)] Onset: 08-22-2023 Episodic Residual codes; unclassified (12 sources) Insomnia; Translations: [Insomnia, unspecified] Onset: 11-17-2022 11-17-2022 Episodic Residual codes; unclassified (3 sources) Early satiety; Translations: [Early satiety] Onset: 04-26-2023 Episodic Results Test Name Value Interpretation Reference Range Facility 36on 12-11-2023 36 Patient's repor ts that the patient was recently hospitalized in the setting of abdominal distention and difficulty breathing and was found to have ascites and pleural effusion. He underwent both thoracentesis and paracentesis and his Lasix was increased to 40 mg twice daily with continuation of Aldactone 100 mg daily. His called asking for a prescription for the higher dose of Lasix. I expressed my concern to her due to prior fluctuations in his creatinine and recommended that he have repeat electrolytes evaluated (specifically creatinine, sodium and potassium) in 1 to 2 days at this higher dose before continuing with this regimen of diuretics. I also discussed that typically we like to have a 2.5-1 ratio of Aldactone to Lasix and therefore if he were to remain on Lasix 40 mg twice daily, ideally he would be on Aldactone 200 mg daily. If his repeat labs show stability in his creatinine and electrolytes, we will increase his Aldactone to 200 mg daily and continue on Lasix 40 twice daily. If his creatinine or electrolytes are deranged, we will have to consider further adjustments of his diuretics. Patient has an appointment in hepatology clinic on 12/27/2023. [facility] 36 of patient call s today stating that when they went for paracentesis at [place] last week - the patient was admitted. Diminished breath sounds and difficulty breathing. Patient ended up with a thoracentesis as well as paracentesis. He was discharged with a change in his lasix dosing - increased to 40 mg twice a day. They were not sent home with a new prescription and will not have enough to last until clinic visit with Dr. Johnson on 12/27/2023. [facility] Orders Onlyon 12-11-2023 Orders Only [id number] Ambrosio Blandon 1955 M [facility] Provider Department Center 12/11/202395384-APMKLGIBSON HAZEL MP Medical Pavi No family history on file [facility] Telephoneon 12-11-2023 Telephone [phone] Ambrosio Blandon 1955 M [facility] Provider Department Center 12/11/202320613-FWACQGIBSON HAZEL MP Medical Pavi No family history on file [facility] 36on 12-01-[address] Hazel in clinic, order placed and faxed to [facility] at [phone] [facility] 36 calls stating t hat patient is in need of an order for paracentesis. Order will need to be sent to [facility]. [facility] Orders Onlyon 12-01-2023 Orders Only [id number] Ambrosio Blandon 1955 M [facility] Provider Department Center 12/01/202395045-NVJSLGIBSON HAZEL MP Medical Pavi No family history on file [facility] HPon 11-27-2023 HP ----- ----- Attestation signed [...] PROT B12/Folate/Iron studies: No results found for: [id number] , FOLATE , IRON , TIBC , UIBC , IRONSAT , FERRITIN ASSESSMENT AND PLAN Charles Blandon is a 68 y.o. male who has a known past medical history significant for alcoholic liver cirrhosis, Recinos's esophagus and hepatic encephalopathy is scheduled today for an EGD for esophageal varices screening. Plan: Plan for EGD today for esophageal varices secondary to liver cirrhosis. Normal [facility] POCT GLUCOSE METER UNSOLICIT ED RESULTSon 11-27-2023 Glucose [Mass/Vol] 101 mg/dL Normal 70-105 [facility] Comment on above: Order Comment: Waive d Testing in the ED is performed under the ED CLIA certificate #[id number]. Result Comment: jhag eman Performed By: #### L [id number] ####[facility] (BEAKER)[address] [place] [address] 36on 11-21-2023 36 Appeal submitted Normal [facility] Orders Onlyon 11-21-2023 Orders Only [id number] Ambrosio Blandon emma 1955 M Date Provider Department Center 11/21/2023 [id number] SINGH MP GI Medical Pavi No family history on file Normal [facility] Prep for Procedureon 024 Prep for Procedure [id number] Ambrosio Blandon emma 1955 M Date Provider Department Center 11/21/2023 IRENA SCHMIDT [facility] [place] No family history on file Normal [facility] MR ABDOMEN W AND WO CONTRAST on 11-14-2023 MR ABDOMEN W AND WO CONTRAST History: [...] signed: Adalid Montiel. 9 Invalid Interpretation Code [facility] Orders Only11-08-2023 Orders Only [id number] Ambrosio Blandon 1955 M [facility] Department Center 11/08/2023 [id number] JOSHUA GI Medical Pavi No family history on file Normal [facility] 11-02-2023 36 Patient's carmen ng to verify that Dr. Jesus will now be prescribing the Famotidine and Baclofen because the previously prescribing physician no longer will now that he is a [facility] GI patient. The preferred pharmacy is [facility] in [place]. Please advise and these orders can then be pended. Normal [facility] Orders Onlyon 11-02-2023 Orders Only [id number] Ambrosio Blandon 1955 M Date Provider Department Center 11/02/2023 [id number], [facility] MP GI Medical Pavi No family history on file Normal [facility] 3610-26-2023 36 I called the patient and [...] MRI of his liver on the . Normal [facility] Orders Onlyon 10-26-2023 Orders Only [id number] Ambrosio Blandon 1955 M Date Provider Department Center 10/26/202349114-LYPTIGIBSON HAZEL GI Medical Pavi No family history on file [facility] Telephoneon 10-26-2023 Telephone [id number] Ambrosio Blandon 1955 M Date Provider Department Center 10/26/202386128-LZGHCGIBSON HAZEL GI Medical Pavi No family history on file [facility] Orders Onlyon 10-24-2023 Orders Only [id number] Ambrosio Blandon 1955 M Date Provider Department Center 10/24/2023 [id number], MAGALIS GI Medical [facility]avi No family history on file Normal [facility] Orders Onlyon 10-20-2023 Orders Only [id number] Ambrosio Blandon 1955 M Date Provider Department Center 10/20/2023 Olinda-RUFINO [facility] Medical No family history on file [facility] 36on 10-18-2023 36 I called the [...] once it comes from pharmacy on the . I expressed concern that a metabolic or [...] we can follow-up on his sodium level. [facility] 36 Patients called stating they were [...] from you to clarify some things. Normal [facility] Orders Onlyon 10-18-2023 Orders Only [id number] Jamia,Wil emma 1955 M Date Provider Department Center 10/18/2023 EKATERINA ALMARAZ [facility] No family history on file [facility] Telephoneon 10-18-2023 Telephone [phone] Jamia,Wil emma 1955 M Date Provider Department Center 10/18/202389533-QAPTYGIBSON ESPOSITO MP GI Medical Pavi No family history on file [facility] Orders Onlyon 10-17-2023 Orders Only [id number] JamiaAmbrosio emma 1955 M Date Provider Department Center 10/17/202317524-TWCUSGIBSON ESPOSITO MP GI Medical Pavi No family history on file [facility] Documentationon 10-16-2023 Documentation [id number] Ambrosio Blandon emma 1955 M Date Provider Department Center 10/16/2023 CARMELLA NICOLE MP GI Medical Pavi No family history on file Reason for Visit and Comments: Specialty Pharmacy Note: Xifaxan PAP [Other] Normal [facility] Prep for Procedureon 024 Prep for Procedure [id number] Ambrosio Blandon 1955 M Date Provider Department Center 10/16/2023 IRENA SCHMIDT [facility] No family history on file Normal [facility] BASIC METABOLIC PANELon 09-16 Anion gap [Moles/Vol] 14 mmol/L Normal 7-20 [facility] Comment on above: Performed By: #### L [id number] #### [facility] (BEAKER) [address] [place] [address] Calcium [Mass/Vol] 9.1 mg/dL Normal 8.6-10.3 [facility] Comment on above: Performed By: #### L AB15 #### [facility] (BEAKER) [address] [place] [address] Chloride [Moles/Vol] 96 mmol/L Low 98-107 [facility] Comment on above: Performed By: #### L AB15 #### [facility] (BEAKER) [address] [place] [address] CO2 [Moles/Vol] 22 mmol/L Normal 21-31 [facility] Comment on above: Performed By: #### L [id number] #### [facility] (BEAKER) [address] [place] [address] Creatinine [Mass/Vol] 1.00 mg/dL Normal 0.70-1.30 [facility] Comment on above: Performed By: #### L AB15 #### [facility] (BEAKER) [address] [place] [address] GLOMERULAR FILTRATION RATE ML/MIN/1.73 SQ M.PREDICTED 81.0 mL/min/1.73m*2 Normal >60.0 [facility] Comment on above: Result Comment: [facility]???s estimated glomerular filtration rate (eGFR) will no [...] individuals. Performed By: #### L AB15 #### [facility] ([place]) [address] [place] [address] Glucose [Mass/Vol] 108 mg/dL High 70-100 [facility] Comment on above: Performed By: #### L AB15 #### [facility] ([facility] [place]) [address] [facility] [place] [address] Potassium [Moles/Vol] 4.8 mmol/L Normal 3.5-5.1 [facility] Comment on above: Performed By: #### L [id number] #### [facility] ([place]) [address] [place] [address] Sodium [Moles/Vol] 127 mmol/L Low 136-145 [facility] Comment on above: Performed By: #### L AB15 #### [facility] ([place]) [address] [place] [address] Urea nitrogen [Mass/Vol] 13 mg/dL Normal 7-25 [facility] Comment on above: Performed By: #### L [id number] #### [facility] ([place]) [address] [place] [address] UREA NITROGEN/CREATININE (MASS RATIO) IN SER/PLAS 13.0 Normal [facility] Comment on above: Performed By: #### L AB15 #### [facility] ([facility] [place]) [address] [place] [address] CBCon 10-13-2023 Erythrocyte distribution width (RBC) [Ratio] 14.2 % Normal 11.5-15.0 [facility] Comment on above: Performed By: #### L [id number] #### [facility] ([facility]) [address] [place] [address] ERYTHROCYTE MEAN CORPUSCULAR HEMOGLOBIN CONCENTRATION (G/DL) BY AUTOMATED 34.5 g/dL Normal 32.0-35.0 [facility] Comment on above: Performed By: #### L [id number] #### [facility] ([facility] [place]) [address] [place] [address] Hematocrit (Bld) [Volume fraction] 38.0 % Low 39.0-55.0 [facility] Comment on above: Performed By: #### L [id number] #### [facility] ([facility] [place]) [address] [place] [address] Hemoglobin (Bld) [Mass/Vol] 13.1 g/dL Normal 13.0-17.0 [facility] Comment on above: Performed By: #### L [id number] #### [facility] ([facility]) [address] [place] [address] MCH (RBC) [Entitic mass] 34.4 pg High 27.0-33.0 [facility] Comment on above: Performed By: #### L [id number] #### [facility] ([facility]) [address] [place] [address] MCV (RBC) [Entitic vol] 99.7 fL High 82.0-98.0 [facility] Comment on above: Performed By: #### L [id number] #### [facility] ([facility] [place]) [address] [place] [address] PLATELETS (10*3/UL) IN BLOOD AUTOMATED COUNT 212 10*3/uL Normal 150-400 [facility] Comment on above: Performed By: #### L [id number] #### [facility] ([facility] [place]) [address] [place] [address] RBC (Bld) [#/Vol] 3.81 10*6/uL Low 4.20-5.70 [facility] Comment on above: Performed By: #### L [id number] #### [facility] [address] [place] [address] WBC (Bld) [#/Vol] 6.20 10*3/uL Normal 4.00-10.60 [facility] Comment on above: Performed By: #### L [id number] #### [facility] [address] [place] [address] HEPATIC FUNCTION PANELon Albumin [Mass/Vol] 3.4 g/dL Low 3.5-5.7 [facility] Comment on above: Performed By: #### L [id number] #### [facility] ([facility] [address] [place] [address] ALP [Catalytic activity/Vol] 114 U/L High 34-104 [facility] Comment on above: Performed By: #### L [id number] #### [facility] [address] [place] [address] ALT [Catalytic activity/Vol] 23 U/L Normal 7-52 [facility] Comment on above: Performed By: #### L [id number] #### [facility] [address] [place] [address] AST [Catalytic activity/Vol] 48 U/L High 13-39 [facility] Comment on above: Performed By: #### L [id number] #### [facility] (BEAKER) [address] [place] [address] Bilirubin [Mass/Vol] 1.5 mg/dL High 0.3-1.0 [facility] Comment on above: Performed By: #### L [id number] #### [facility] (BEAKER) [address] [place] [address] Magnesium [Mass/Vol] 0.5 mg/dL High 0-0.2 [facility] Comment on above: Performed By: #### L [id number] #### [facility] (BEAKER) [address] [place] [address] Protein [Mass/Vol] 7.8 g/dL Normal 6.0-8.3 [facility] Comment on above: Performed By: #### L [id number] #### [facility] (BEAKER) [address] [place] [address] Labon 10-13-2023 Lab [id number] Ambrosio Blandon 1955 M Date Provider Department Center 10/13/2023 2244-[facility] MP LAB RESOURCE MP DRAW Medical Pavi No family history on file Normal [facility] Office Visiton 10-13-2023 Follow-up visit [id number] Ambrosio Blandon 1955 M Date Provider Department Center 10/13/2023 298-IRENA JOHNSON MP GI Medical Pavi No family history on file Level of Service:55400 [place] OFFICE/OUTPATIENT ESTABLISHED HIGH MDM 40 MIN (GC) Reason for Visit and Comments: Cirrhosis [239] Ascites [295] Normal [facility] PROTIME-INRon 10-13-2023 INR IN PPP BY COAGULATION ASSAY 1.17 High 0.90-1.10 [facility] Comment on above: Result Comment: ACCC P [...] 1995;[id number]. Performed By: #### L [id number] #### [facility] (BEAKER) [address] [place] [address] PROTHROMBIN TIME (PT) IN PPP BY COAGULATION ASSAY 14.9 Seconds High 12.3-14.8 [facility] Comment on above: Performed By: #### L [id number] #### [facility] (MILLIE) [address] [place] [address] Orders Onlyon 10-06-2023 Orders Only [id number] Jamia,Ambrosio emma 1955 M Date Provider Department Center 10/06/2023 [id number], HISTORICAL MP GI Medical Pavi No family history on file Normal [facility] Mayito 10-03-2023 L Specimen: Received: 10/04/23 Status: HUSAM Coffey Num: [id number] Spec Type: Cytology Subm Dr: Arisa Jesus MD Tissues: A ASCITES (ASC) Procedures: HE/2, Gross/Micro L4, Cyto Prepstain, PAPSTN Age/ Patient Sex Location Account Attending Physician Charles Blandon 68/M LABELL [id number] Ward Stern MD SPEC NUM: [id number] RECD: 10/04/23 STATUS: HUSAM REMartin NUM: [id number] WEN: 10/03/[address]: Arias Jesus MD ENTERED: 10/04/[address] [facility] [address]: Dina,Lab Ward Stern MD SPEC TYPE: Cytology DEPT: [facility] ENTERED BY: [id number] RECV BY: [id number] ORDERED: HE/2, Gross/Micro L4, Cyto Prepstain, PAPSTN ORDERED: HE/2, Gross/Micro L4, Cyto Prepstain, PAPSTN Pathological Diagnosis Ascites fluid cytology: Atypical cells noted. Clinical Information cirrhosis, liver lesion Gross Description Received is 1000 ml yellow cloudy unfixed fluid for cytology said to have been obtained as abdominal ascites fluid. ThinPrep and cell block preparations are prepared for microscopic examination. (DC/ct) CPT Codes 89553 Specimen: [id number] Received: 10/04/23 Status: HUSAM Coffey Num: [id number] Spec Type: Cytology Subm Dr: Arias Jesus MD Tissues: A ASCITES (ASC) Procedures: HE/2, Gross/Micro L4, Cyto Prepstain, PAPSTN Patient: Charles Blandon [id number] (Continued) Signed (signature on file) Linette Bean MD 10/05/23 1340 Normal [facility] Orders Onlyon 09-27-2023 Orders Only [id number] Ambrosio Blandon 1955 M Date Provider Department Center 09/27/[address] [facility] No family history on file Normal [facility] CREATININE, SERUMon 09-25-19 Creatinine [Mass/Vol] 1.06 mg/dL Normal 0.70-1.30 [facility] Comment on above: Performed By: #### L [id number] #### [facility] ([facility]AK[facility]) [address] [place] [address] GLOMERULAR FILTRATION RATE ML/MIN/1.73 SQ M.PREDICTED 75.5 mL/min/1.73m*2 Normal >60.0 [facility] Comment on above: Result Comment: [facility]???s estimated glomerular filtration rate (eGFR) will no [...] of individuals. Performed By: #### L [id number] #### [facility] ([facility]) [address] [place] [address] CTA ABDOMEN PELVIS W IV CONT RASTon 09-25-2023 CTA ABDOMEN PELVIS W IV CONTRAST [...] Gan MD. Not Vldtd Invalid Interpretation Code [facility] Labon 09-25-2023 Lab [id number] Jamia,Wil emma 1955 M Date Provider Department [place] 09/25/2023 2245-[facility] OPD LAB RESOURCE [facility] [place] [facility] No family history on file Normal [facility] Orders Onlyon 09-23-2023 Orders Only [id number] Ambrosio Blandon 1955 M Date Provider Department [place] 09/23/2023 HARSHA FELIX [facility] GI [facility] No family history on file Normal [facility] Orders Onlyon 09-15-2023 Orders Only [id number] Jamia,Ambrosio emma 1955 M Date Provider Department [place] 09/15/2023 BROOKLYNN ZEPEDA [facility] No family history on file Normal [facility] Orders Onlyon 09-14-2023 Orders Only [id number] Ambrosio Blandon 1955 M Date Provider Department Center 09/14/2023 BROOKLYNN ZEPEDA [facility] No family history on file Normal [facility] Orders Onlyon 08-28-2023 Orders Only [id number] Ambrosio Blandon 1955 M Date Provider Department Center 08/28/2023 [id number], HISTORICAL MP [facility] No family history on file [facility] Orders Onlyon 08-24-2023 Orders Only [id number] Ambrosio Blandon 1955 M Date Provider Department Center 08/24/2023 [id number], HISTORICAL MP [facility] No family history on file [facility] 29on 08-09-2023 29 Addended by: ARIAS JESUS on: 08/09/2023 12:50 PM Modules accepted: Orders Normal [facility] Orders Onlyon 08-09-2023 Orders Only [id number] Ambrosio Blandon 1955 M Date Provider Department Center 08/09/2023 JASON COFFEY [facility] No family history on file [facility] Office Visiton 08-07-2023 Follow-up visit [id number] Ambrosio Blandon 1955 M Date Provider Department Center 08/07/2023 294-ARIAS JESUS [facility] No family history on file Level of Service:68152 [place] OFFICE/OUTPATIENT NEW LOW MDM 30 MINUTES (GC) Reason for Visit and Comments: New Patient [632] Weight Loss [866356] - 30 pound weight loss since . Pt recently had surgery for 3 polyps removed and 1 hemorrhoid removal. Dyskenisia of esophgaus [Other] Nausea [70] Vomiting [120] - Pt has a urge to but does not vomit. [facility] Mayito 06-13-2023 L Specimen: [id number] Received: 06/14/23 Status: SOUT Req Num: [id number] Spec Type: Surgical Subm Dr: Janneth Villegas DO Tissues: A Hemorrhoids (HEMORRHOID 9:00) Procedures: HE, Gross/Micro L3 Age/ Patient Sex Location Account Attending Physician Charles Blandon 67/M [place] [id number] Janneth Villegas DO SPEC NUM: [id number] RECD: 06/14/23 STATUS: HUSAM COFFEY NUM: [id number] WEN: 06/13/[address]: Janneth Villegas DO ENTERED: 06/14/[address] [facility] [address]: SPEC TYPE: Surgical DEPT: S ORDERED: [...] cut surfaces with diffusely dilated blood-filled spaces. Vp Patient sections are submitted in 1 cassette as follows: A1 - 1 sales representative groceries section from each fragment to demonstrate change in mucosal types of the largest fragment CPT Codes 78122 Specimen: [id number] Received: 06/14/23 Status: HUSAM Coffey Num: [id number] Spec Type: Surgical Subm Dr: Janneth Villegas DO Tissues: A Hemorrhoids (HEMORRHOID 9:00) Procedures: FAMILIA, Gross/Micro L3 Patient: Charles Blandon [id number] (Continued) Signed (signature on file) Linette Bean MD 06/27/23 2239 Normal [facility] Automated basophil %Ordered By: Janneth Villegas on 06-02-2023 Basophils/100 WBC (Bld) 0.7 % Normal . [facility] Comment on above: Performed By: #### B MP, CBC #### [address] Automated basophil countOrde red By: Janneth Villegas on 06-02-2023 Basophils (Bld) [#/Vol] 0.0 10*3/uL Normal 0.0-0.2 [facility] Comment on above: Result Comment: PERF ORMED BY: [facility] [address] [place] [address] PATHOLOGIST MASTER AUTOMOTIVE GLASS TECHNICIAN CLARK LEARY M.D. Performed By: #### B MP, CBC #### [address] Automated blood monocyte cou ntOrdered By: Janneth Villegas on 06-02-2023 Monocytes (Bld) [#/Vol] 0.9 10*3/uL High 0.0-0.8 [facility] Comment on above: Performed By: #### B MP, CBC #### [address] Automated eosinophil %Ordere d By: Jannethinés Villegas on 06-02-2023 Eosinophils/100 WBC (Bld) 1.9 % Normal . [facility] Comment on above: Performed By: #### B MP, CBC #### [address] Automated eosinophil countOr dered By: Janneth Villegas on 06-02-2023 Eosinophils (Bld) [#/Vol] 0.1 10*3/uL Normal 0.0-0.45 [facility] Comment on above: Performed By: #### B MP, CBC #### [address] Automated monocyte %Ordered By: Janneth Villegas on 06-02-2023 Monocytes/100 WBC (Bld) 15.7 % Normal . [facility] Comment on above: Performed By: #### B MP, CBC #### [address] Automated neutrophil %Ordere d By: Jannethinés Villegas on 06-02-2023 Neutrophils/100 WBC (Bld) 68.5 % Normal . [facility] Comment on above: Performed By: #### B MP, CBC #### [address] Basic Metabolic Panelon 05-18 GFR/1.73 sq M.predicted MDRD (S/P/Bld) [Vol rate/Area] mL/min/{1.73_m2} Normal [facility] Comment on above: Performed By: #### B MP, CBC #### [address] Calcium [Mass/volume] in Ser um or PlasmaOrdered By: Janneth Villegas on 06-02-2023 Calcium [Mass/Vol] 8.6 mg/dL Normal 8.6-10.3 [facility] Comment on above: Result Comment: PERF ORMED BY: [place] [address] PATHOLOGIST MASTER AUTOMOTIVE GLASS TECHNICIAN CLARK LEARY M.D. Performed By: #### B MP, CBC #### [address] Carbon dioxide, total [Moles /volume] in Serum or PlasmaOrdered By: Janneth Villegas on 06-02-2023 CO2 [Moles/Vol] 27.3 mmol/L Normal 21.0-31.0 [facility] Comment on above: Performed By: #### B MP, CBC #### [address] Chloride [Moles/volume] in S mateo or PlasmaOrdered By: Janneth Villegas on 06-02-2023 Chloride [Moles/Vol] 96 mmol/L Low 98-107 [facility] Comment on above: Performed By: #### B MP, CBC #### [address] Complete Blood Count Auto Di ffon 06-02-2023 Mean Corpuscular HGB Conc 35.2 g/dL Normal 32.5-35.6 [facility] Comment on above: Performed By: #### B MP, CBC #### [address] NRBC% 0.1 /100{WBC} Normal 0-0.5 [facility] Comment on above: Performed By: #### B MP, CBC #### [place] [address] Creatinine [Mass/volume] in Serum or PlasmaOrdered By: Janneth Villegas on 06-02-2023 Creatinine [Mass/Vol] 1.07 mg/dL Normal 0.70-1.30 [facility] Comment on above: Performed By: #### B MP, CBC #### [address] ECG 12 lead ECGon 06-02-2023 ECG 12 lead ECG [facility] [place] [address] [place] [address] Electrocardiograph Report Signed Patient: Charles Blandon MR#: [id number] 66 : 1955 Acct:[id number] Age/Sex: 67 / M ADM Date: 06/02/23 Loc: Room: Type: [facility] Attending Dr: Janneth Villegas DO Ordering [...] previous ECGs available Confirmed by Gurpreet Dyson ([id number]) on 06/02/2023 6:21:10 PM Referred By: DANNY VILLEGAS Electronically Signed By:Gurpreet Dyson Transcribed By: MUS Signed By Gurpreet Dyson MD 06/02/23 1821 Normal [facility] Erythrocyte distribution wid th [Ratio] by Automated countOrdered By: Janneth Villegas on 06-02-2023 Erythrocyte distribution width (RBC) [Ratio] 13.8 % Normal 12.0-14.8 [facility] Comment on above: Performed By: #### B MP, CBC #### [place] [address] [place] Erythrocytes [#/volume] in B lood by Automated countOrdered By: Janneth Villegas on 06-02-2023 RBC (Bld) [#/Vol] 3.45 10*6/uL Low 3.90-5.60 [facility] Comment on above: Performed By: #### B BRADLEY, CBC #### [address] Glucose [Mass/volume] in Ser um or PlasmaOrdered By: Janneth Villegas on 06-02-2023 Glucose [Mass/Vol] 132 mg/dL High 70-100 [facility] Comment on above: ADA recommended refe rence rangeRandom Glucose Reference Range is dependent on time and content of last meal. Glucose of more than 200 mg/dL in a nonstressed, ambulatory subject supports the diagnosis of Diabetes Mellitus. Result Comment: [place] om Glucose Reference Range is dependent on time and content of last meal. Glucose of more than 200 mg/dL in a nonstressed, ambulatory subject supports the diagnosis of Diabetes Mellitus. ADA recommended reference range Performed By: #### B BRADLEY, CBC #### [facility] [address] [place] [address] [place] Hematocrit [Volume Fraction] of Blood by Automated countOrdered By: Janneth Villegas on 06-02-2023 Hematocrit (Bld) [Volume fraction] 35.5 % Low 38.8-50.0 [facility] Comment on above: Performed By: #### B BRADLEY, CBC #### [facility] [address] [place] [address] [place] Hemoglobin [Mass/volume] in BloodOrdered By: Janneth Villegas on 06-02-2023 Hemoglobin (Bld) [Mass/Vol] 12.5 g/dL Low 13.0-17.0 [facility] Comment on above: Performed By: #### B BRADLEY, CBC #### [place] [address] [place] Leukocytes [#/volume] correc jamila for nucleated erythrocytes in Blood by Automated counOrdered By: Janneth Villegas on 06-02-2023 WBC corrected for nucl RBC Auto (Bld) [#/Vol] 5.7 10*3/uL 4.1-10.5 [facility] Leukocytes [#/volume] in Blo od by Automated countOrdered By: Janneth Villegas on 06-02-2023 WBC (Bld) [#/Vol] 5.7 10*3/uL Normal 4.1-10.5 [facility] Comment on above: Performed By: #### B MP, CBC #### [facility] [address] Lymphocytes [#/volume] in Bl ood by Automated countOrdered By: Janneth Villegas on 06-02-2023 Lymphocytes (Bld) [#/Vol] 0.7 10*3/uL Low 1.00-4.8 [facility] Comment on above: Performed By: #### B MP, CBC #### [facility] [address] [place] [address] Lymphocytes/100 leukocytes i n Blood by Automated countOrdered By: Janneth Villegas on 06-02-2023 Lymphocytes/100 WBC (Bld) 13.2 % Normal . [facility] Comment on above: Performed By: #### B MP, CBC #### [facility] [address] [place] [address] MCH [Entitic mass] by Automa jamila countOrdered By: Janneth Villegas on 06-02-2023 MCH (RBC) [Entitic mass] 36.2 pg High 27.5-35.2 [facility] Comment on above: Performed By: #### B MP, CBC #### [facility] [address] [place] [address] MCHC Auto (RBC) [Mass/Vol]Or dered By: Janneth Villegas on 06-02-2023 MCHC (RBC) [Mass/Vol] 35.2 g/dL 32.5-35.6 [facility] MCV [Entitic volume] by Auto mated countOrdered By: Janneth Villegas on 06-02-2023 MCV (RBC) [Entitic vol] 102.9 fL High 83.5-101 [facility] Comment on above: Performed By: #### B MP, CBC #### [facility] [address] Neutrophils [#/volume] in Bl ood by Automated countOrdered By: Janneth Villegas on 06-02-2023 Neutrophils (Bld) [#/Vol] 3.9 10*3/uL Normal 1.8-7.7 [facility] Comment on above: Performed By: #### B MP, CBC #### [address] No Panel InformationOrdered By: Janneth Villegas on 06-02-2023 Estimated GFR (CKD-EPI) > 60.0 mL/Min [facility] Creatinine Clearance (Chem N/A [facility] Nucleated erythrocytes [Pres ence] in Blood by Automated countOrdered By: Janneth Villegas on 06-02-2023 Nucleated RBC Auto Ql (Bld) 0.1 /100{WBC} 0-0.5 [facility] Platelet mean volume [Entiti c volume] in Blood by Automated countOrdered By: Janneth Villegas on 06-02-2023 Platelet mean volume (Bld) [Entitic vol] 8.1 fL Normal 6.6-10.1 [facility] Comment on above: Performed By: #### B MP, CBC #### [facility] [address] [place] [address] [place] Platelets [#/volume] in Bloo d by Automated countOrdered By: Janneth Villegas on 06-02-2023 Platelets (Bld) [#/Vol] 153 10*3/uL Normal 150-450 [facility] Comment on above: Performed By: #### B MP, CBC #### [address] Potassium [Moles/volume] in Serum or PlasmaOrdered By: Janneth Villegas on 06-02-2023 Potassium [Moles/Vol] 4.8 mmol/L Normal 3.5-5.1 [facility] Comment on above: Performed By: #### B MP, CBC #### [address] Serum or plasma anion gap de terminationOrdered By: Janneth Villegas on 06-02-2023 Anion gap [Moles/Vol] 13.5 mmol/L Normal 6.0-15.0 [facility] Comment on above: Performed By: #### B MP, CBC #### [address] Sodium [Moles/volume] in Ser um or PlasmaOrdered By: Janneth Villegas on 06-02-2023 Sodium [Moles/Vol] 132 mmol/L Low 136-145 [facility] Comment on above: Performed By: #### B MP, CBC #### [address] Urea nitrogen [Mass/volume] in Serum or PlasmaOrdered By: Janneth Villegas on 06-02-2023 Urea nitrogen [Mass/Vol] 12 mg/dL Normal 7-25 [facility] Comment on above: Performed By: #### B MP, CBC #### [address] [place] gastric emptying studyon 04-26-2023 NM gastric emptying study [facility] [place] [address] [place] [address] Nuclear Medicine Report Signed Patient: Charles Blandon MR#: [id number] 66 : 1955 Acct:[id number] Age/Sex: 67 / M ADM Date: 04/26/23 Loc: [place] Room: Type: [facility] Attending Dr: Lorna Ortega APRN Copies [...] Alvarez Jr., D.O.04/26/2023 10:18 AM Dictation Location: [place] [address] Transcribed By: [facility] 04/26/23 1018 Dictated By: Morales Alvarez Jr, DO 04/26/23 1017 Signed By: 04/26/23 1018 Normal [facility] Albumin [Mass/volume] in Ser um or Plasma by Bromocresol green (BCG) dye binding methoOrdered By: Lorna Ortega on 04-12-2023 Albumin BCG dye [Mass/Vol] 3.0 g/dL 3.5-5.7 [facility] Bilirubin.total [Mass/volume ] in Serum or PlasmaOrdered By: Lorna Ortega on 04-12-2023 Bilirubin [Mass/Vol] 1.3 mg/dL High 0.3-1.0 [facility] Comment on above: Samples from patient s [...] Bilirubin. Performed By: #### C MP #### [address] Calcium [Mass/volume] in Ser um or PlasmaOrdered By: Lorna Ortega on 04-12-2023 Calcium [Mass/Vol] 8.3 mg/dL Low 8.6-10.3 [facility] Comment on above: Order Comment: Reaso n for Exam Cirrhosis of liver Performed By: #### C MP #### [facility] [address] Carbon dioxide, total [Moles /volume] in Serum or PlasmaOrdered By: Lorna Ortega on 04-12-2023 CO2 [Moles/Vol] 27.3 mmol/L Normal 21.0-31.0 [facility] Comment on above: Order Comment: Reaso n for Exam Cirrhosis of liver Performed By: #### C MP #### [facility] [address] [place] [id number] [facility] Comprehensive Metabolic Pane mayito 04-12-2023 Albumin [Mass/Vol] 3.623705 g/dL Low 3.5-5.7 g/dL [employer] [facility] [employer] Other Bilirubin [Mass/Vol] 1.2096730 mg/dL High 0.3- 1.0 mg/dL [facility] Other Calcium [Mass/Vol] 8.7688795 mg/dL Low 8.6-10 .3 mg/dL [facility] Other CO2 [Moles/Vol] 27.75112471 mmol/L Normal 21.0-3 1.0 mmol/L [facility] Other Creatinine [Mass/Vol] 0.95650208 mg/dL Normal 0. 70-1.30 mg/dL [facility] Other Potassium [Moles/Vol] 5.33485217 mmol/L Normal 3 .5-5.1 mmol/L [facility] Other Protein [Mass/Vol] 6.447946 g/dL Low 6.4-8.9 g/dL [facility] Other Comprehensive Metabolic Panel 3.3 g/dL [facility] Other Albumin [Mass/Vol] 3.0 g/dL Low 3.5-5.7 [facility] Comment on above: Order Comment: Reaso n for Exam Cirrhosis of liver Performed By: #### C MP #### [facility] [address] [place] [address] [place] GFR/1.73 sq M.predicted MDRD (S/P/Bld) [Vol rate/Area] mL/min/{1.73_m2} Normal [facility] Other Comment on above: Order Comment: Reaso n for Exam Cirrhosis of liver Performed By: #### C MP #### [facility] [address] Comprehensive Metabolic Pane lOrdered By: Lorna Ortega on 04-12-2023 Albumin/Globulin [Mass ratio] 0.9 {ratio} Normal [facility] Comment on above: Order Comment: Reaso n for Exam Cirrhosis of liver Performed By: #### C MP #### [address] ALP [Catalytic activity/Vol] 158 U/L High 34-104 [facility] Comment on above: Order Comment: Reaso n for Exam Cirrhosis of liver Result Comment: PERF ORMED BY: [place] [address] PATHOLOGIST MASTER AUTOMOTIVE GLASS TECHNICIAN CLARK LEARY M.D. Performed By: #### C MP #### [address] ALT [Catalytic activity/Vol] 35 U/L Normal 7-52 [facility] Comment on above: Order Comment: Reaso n for Exam Cirrhosis of liver Performed By: #### C MP #### [address] AST [Catalytic activity/Vol] 76 U/L High 13-39 [facility] Comment on above: Order Comment: Reaso n for Exam Cirrhosis of liver Performed By: #### C MP #### [place] [address] [place] Chloride [Moles/Vol] 95 mmol/L Low 98-107 [facility] Comment on above: Order Comment: Reaso n for Exam Cirrhosis of liver Performed By: #### C MP #### [facility] [address] Glucose [Mass/Vol] 94 mg/dL Normal 70-100 [facility] Comment on above: ADA recommended refe rence rangeRandom Glucose Reference Range is dependent on time and content of last meal. Glucose of more than 200 mg/dL in a nonstressed, ambulatory subject supports the diagnosis of Diabetes Mellitus. Order Comment: Reaso n for Exam Cirrhosis of liver Result Comment: [place] om Glucose Reference Range is dependent on time and content of last meal. Glucose of more than 200 mg/dL in a nonstressed, ambulatory subject supports the diagnosis of Diabetes Mellitus. ADA recommended reference range Performed By: #### C MP #### [facility] [address] [place] [address] Sodium [Moles/Vol] 127 mmol/L Low 136-145 [facility] Comment on above: Order Comment: Reaso n for Exam Cirrhosis of liver Performed By: #### C MP #### [address] Urea nitrogen [Mass/Vol] 9 mg/dL Normal 7-25 [facility] Comment on above: Order Comment: Reaso n for Exam Cirrhosis of liver Performed By: #### C MP #### [address] Creatinine [Mass/volume] in Serum or PlasmaOrdered By: Lorna Ortega on 04-12-2023 Creatinine [Mass/Vol] 0.81 mg/dL Normal 0.70-1.30 [facility] Comment on above: Order Comment: Reaso n for Exam Cirrhosis of liver Performed By: #### C MP #### [address] No Panel InformationOrdered By: Lorna Ortega on 04-12-2023 Estimated GFR (CKD-EPI) > 60.0 mL/Min [facility] Creatinine Clearance (Chem N/A [facility] Potassium [Moles/volume] in Serum or PlasmaOrdered By: Lorna Ortega on 04-12-2023 Potassium [Moles/Vol] 5.1 mmol/L Normal 3.5-5.1 [facility] Comment on above: Order Comment: Reaso n for Exam Cirrhosis of liver Performed By: #### C MP #### [facility] [address] Protein [Mass/volume] in Ser um or PlasmaOrdered By: Lorna Ortega on 04-12-2023 Protein [Mass/Vol] 6.3 g/dL Low 6.4-8.9 [facility] Comment on above: Order Comment: Reaso n for Exam Cirrhosis of liver Performed By: #### C MP #### [facility] [address] Serum globulin measurement b y calculation (mass/volume)Ordered By: Lorna Ortega on 04-12-2023 Globulin (S) [Mass/Vol] 3.3 g/dL Normal [facility] Comment on above: Order Comment: Reaso n for Exam Cirrhosis of liver Performed By: #### C MP #### [address] Serum or plasma anion gap de terminationOrdered By: Lorna Ortega on 04-12-2023 Anion gap [Moles/Vol] 9.8 mmol/L Normal 6.0-15.0 [facility] Comment on above: Order Comment: Reaso n for Exam Cirrhosis of liver Performed By: #### C MP #### [address] XR RIBS 2 VIEWS LEFT WITH [...] BY: Nick Beverly MD Normal Not Available Actin smooth muscle IgG Ab [ Units/volume] in SerumOrdered By: Lex Carroll on 09-21-2022 Actin smooth muscle IgG Qn (S) 8 Units 0-19 [facility] Comment on above: Negative 0 - 19 Weak positive 20 - 30 Moderate to strong positive >30 Actin Antibodies are found in 52-85% of patients with autoimmune hepatitis or chronic active hepatitis and in 22% of patients with primary biliary cirrhosis. Alanine aminotransferase [En zymatic activity/volume] in Serum or PlasmaOrdered By: Lex Carroll on 09-21-2022 ALT [Catalytic activity/Vol] 30 U/L 7-52 [facility] Albumin [Mass/volume] in Ser um or Plasma by Bromocresol green (BCG) dye binding methoOrdered By: Lex Carroll on 09-21-2022 Albumin BCG dye [Mass/Vol] 3.6 g/dL 3.5-5.7 [facility] Alkaline phosphatase [Enzyma tic activity/volume] in Serum or PlasmaOrdered By: Lex Carroll on 09-21-2022 ALP [Catalytic activity/Vol] 96 U/L 34-104 [facility] Aspartate aminotransferase [ Enzymatic activity/volume] in Serum or PlasmaOrdered By: Lex Carroll on 09-21-2022 AST [Catalytic activity/Vol] 55 U/L 13-39 [facility] Basophils Auto (Bld) [#/Vol] Ordered By: Lex Carroll on 09-21-2022 Basophils (Bld) [#/Vol] 0.0 10*3/uL 0.0-0.2 [facility] Basophils/100 WBC Auto (Bld) Ordered By: Lex Carroll on 09-21-2022 Basophils/100 WBC (Bld) 0.9 % . [facility] Bilirubin.total [Mass/volume ] in Serum or PlasmaOrdered By: Lex Carroll on 09-21-2022 Bilirubin [Mass/Vol] 0.9 mg/dL 0.3-1.0 [facility] Calcium [Mass/volume] in Ser um or PlasmaOrdered By: Lex Carroll on 09-21-2022 Calcium [Mass/Vol] 8.7 mg/dL 8.6-10.3 [facility] Carbon dioxide, total [Moles /volume] in Serum or PlasmaOrdered By: Lex Carroll on 09-21-2022 CO2 [Moles/Vol] 26.9 mmol/L 21.0-31.0 [facility] Chloride [Moles/volume] in S mateo or PlasmaOrdered By: Lex Carroll on 09-21-2022 Chloride [Moles/Vol] 108 mmol/L 98-107 [facility] Cholesterol [Mass/volume] in Serum or PlasmaOrdered By: Lex Carroll on 09-21-2022 Cholesterol [Mass/Vol] 175 mg/dL 140-200 [facility] Comment on above: Chol less than 200 m g/dl low riskChol 201-239 mg/dl borderline riskChol 240 mg/dl and greater high risk Cholesterol in LDL Calc [Mas s/Vol]Ordered By: Lex Carroll on 09-21-2022 Cholesterol in LDL [Mass/Vol] 94 mg/dL 0-100 [facility] Comment on above: LDL ATP III CLASSIFI CATIONLDL less than 100 mg/dL OptimalLDL 100-129 mg/dL Near or above optimalLDL 130-159 mg/dL Borderline highLDL 160-189 mg/dL HighLDL greater than 189 mg/dL Very high Cholesterol in VLDL Calc [Ma ss/Vol]Ordered By: Lex Carroll on 09-21-2022 Cholesterol in VLDL [Mass/Vol] 21 mg/dL [facility] Creatinine [Mass/volume] in Serum or PlasmaOrdered By: Lex Carroll on 09-21-2022 Creatinine [Mass/Vol] 0.90 mg/dL 0.70-1.30 [facility] Eosinophils Auto (Bld) [#/Vo l]Ordered By: Lex Carroll on 09-21-2022 Eosinophils (Bld) [#/Vol] 0.2 10*3/uL 0.0-0.45 [facility] Eosinophils/100 WBC Auto (Bl d)Ordered By: Lex Carroll on 09-21-2022 Eosinophils/100 WBC (Bld) 3.6 % . [facility] Erythrocyte distribution wid th Auto (RBC) [Ratio]Ordered By: Lex Carroll on 09-21-2022 Erythrocyte distribution width (RBC) [Ratio] 14.2 % 12.0-14.8 [facility] Globulin Calc (S) [Mass/Vol] Ordered By: Lex Carroll on 09-21-2022 Globulin (S) [Mass/Vol] 2.8 g/dL [facility] Glucose [Mass/volume] in Ser um or PlasmaOrdered By: Lex Carroll on 09-21-2022 Glucose [Mass/Vol] 123 mg/dL 70-100 [facility] Comment on above: ADA recommended refe rence rangeRandom Glucose Reference Range is dependent on time and content of last meal. Glucose of more than 200 mg/dL in a nonstressed, ambulatory subject supports the diagnosis of Diabetes Mellitus. Hematocrit Auto (Bld) [Volum e fraction]Ordered By: Lex Carroll on 09-21-2022 Hematocrit (Bld) [Volume fraction] 37.5 % 38.8-50.0 [facility] Hemoglobin [Mass/volume] in BloodOrdered By: Lex Carroll on 09-21-2022 Hemoglobin (Bld) [Mass/Vol] 12.9 g/dL 13.0-17.0 [facility] Hepatitis B virus surface Ag [Presence] in Serum or Plasma by ImmunoassayOrdered By: Lex Carroll on 09-21-2022 HBV surface Ag IA Ql Negative Negative [facility] Hepatitis C virus IgG Ab [Pr esence] in Serum or Plasma by ImmunoassayOrdered By: Lex Carroll on 09-21-2022 HCV IgG IA Ql Non-Reactive Non Reactive [facility] Laboratory - CoagulationOrde red By: Lex Carroll on 09-21-2022 PT Coag (PPP) [Time] 13.0 s 9.0-12.9 [facility] Leukocytes [#/volume] correc jamila for nucleated erythrocytes in Blood by Automated counOrdered By: Lex Carroll on 09-21-2022 WBC corrected for nucl RBC Auto (Bld) [#/Vol] 4.2 10*3/uL 4.1-10.5 [facility] Lymphocytes Auto (Bld) [#/Vo l]Ordered By: Lex Carroll on 09-21-2022 Lymphocytes (Bld) [#/Vol] 1.1 10*3/uL 1.00-4.8 [facility] Lymphocytes/100 WBC Auto (Bl d)Ordered By: Lex Carroll on 09-21-2022 Lymphocytes/100 WBC (Bld) 27.1 % . [facility] MCH Auto (RBC) [Entitic mass ]Ordered By: Lex Carroll on 09-21-2022 MCH (RBC) [Entitic mass] 35.0 pg 27.5-35.2 [facility] MCHC Auto (RBC) [Mass/Vol]Or dered By: Lex Carroll on 09-21-2022 MCHC (RBC) [Mass/Vol] 34.4 g/dL 32.5-35.6 [facility] MCV Auto (RBC) [Entitic vol] Ordered By: Lex Carroll on 09-21-2022 MCV (RBC) [Entitic vol] 101.9 fL 83.5-101 [facility] Monocytes Auto (Bld) [#/Vol] Ordered By: Lex Carroll on 09-21-2022 Monocytes (Bld) [#/Vol] 0.5 10*3/uL 0.0-0.8 [facility] Monocytes/100 WBC Auto (Bld) Ordered By: Lex Carroll on 09-21-2022 Monocytes/100 WBC (Bld) 11.3 % . [facility] Neutrophils Auto (Bld) [#/Vo l]Ordered By: Lex Carroll on 09-21-2022 Neutrophils (Bld) [#/Vol] 2.4 10*3/uL 1.8-7.7 [facility] Neutrophils/100 WBC Auto (Bl d)Ordered By: Lex Carroll on 09-21-2022 Neutrophils/100 WBC (Bld) 57.1 % . [facility] No Panel InformationOrdered By: Lex Carroll on 09-21-2022 Estimated GFR (CKD-EPI) > 60.0 mL/Min [facility] Hepatitis B Core Total Antibody Negative Negative [facility] Comment on above: Performed at: [address] [id number] Director: John Tang PhD, Phone: [phone] Hepatitis C Interpretation See comment . [facility] Comment on above: Not infected with HC V unless early or acute infection issuspected (which may be delayed in an immunocompromisedindividual), or other evidence exists to indicate HCVinfection. Hepatitis C RNA Quantitative N/A [facility] Creatinine Clearance (Chem 88.23 [facility] Nucleated erythrocytes [Pres ence] in Blood by Automated countOrdered By: Lex Carroll on 09-21-2022 Nucleated RBC Auto Ql (Bld) 0.2 /100{WBC} 0-0.5 [facility] Platelet mean volume Auto (B ld) [Entitic vol]Ordered By: Lex Carroll on 09-21-2022 Platelet mean volume (Bld) [Entitic vol] 9.8 fL 6.6-10.1 [facility] Platelet poor plasma interna tional normalized ratio (INR) by coagulation assay (relatOrdered By: Lex Carroll on 09-21-2022 INR Coag (PPP) [Relative time] 1.1 {INR} [facility] Comment on above: INR Therapeutic Rang [...] 09-21-2022 Platelets (Bld) [#/Vol] 91 10*3/uL 150-450 [facility] Potassium [Moles/volume] in Serum or PlasmaOrdered By: Lex Carroll on 09-21-2022 Potassium [Moles/Vol] 5.0 mmol/L 3.5-5.1 [facility] Protein [Mass/volume] in Ser um or PlasmaOrdered By: Lex Carroll on 09-21-2022 Protein [Mass/Vol] 6.4 g/dL 6.4-8.9 [facility] RBC Auto (Bld) [#/Vol]Ordere d By: Lex Carroll on 09-21-2022 RBC (Bld) [#/Vol] 3.68 10*6/uL 3.90-5.60 [facility] Serum aszcv-3-dsgihcngfqc me asurementOrdered By: Lex Carroll on 09-21-2022 Alpha 1 antitrypsin [Mass/Vol] 205 mg/dL 101-187 [facility] Serum hepatitis B virus surf waldo antibody detectionOrdered By: Lex Carroll on 09-21-2022 HBV surface Ab Ql (S) Non-Reactive . [facility] Comment on above: Non Reactive: Incons istent with immunity, less than 10 mIU/mL Reactive: Consistent with immunity, greater than 9.9 mIU/mL Serum mitochondria M2 IgG an tibody assay (units/volume)Ordered By: Lex Carroll on 09-21-2022 Mitochondria M2 IgG Qn (S) <20.0 Units 0.0-20.0 [facility] Comment on above: Negative 0.0 - 20.0 Equivocal 20.1 - 24.9 Positive >24.9Mitochondrial (M2) Antibodies are found in 90-96% ofpatients with primary biliary cirrhosis.Performed at: [facility] [place] [id number] Director: John Tang PhD, Phone: [phone] Serum or plasma albumin/glob ulin mass ratioOrdered By: Lex Carroll on 09-21-2022 Albumin/Globulin [Mass ratio] 1.3 {ratio} [facility] Serum or plasma alpha 1 anti trypsin phenotyping identification by immunofixationOrdered By: Lex Carroll on 09-21-2022 Alpha 1 antitrypsin phenotyping Immunofixation Nom Mm . [facility] Comment on above: Phenotype Population A-1-AT [...] reference. Ranges used to confirm phenotype.Performed at: [facility] [address] [id number] Director: John Tang PhD, Phone: [phone] at: [facility] LabMark [facility] [id number] [place], [place] [id number] Director: George Brown MD, Phone: [phone] Serum or plasma anion gap de terminationOrdered By: Lex Carroll on 09-21-2022 Anion gap [Moles/Vol] 11.1 mmol/L 6.0-15.0 [facility] Serum or plasma ceruloplasmi n measurement (mass/volume)Ordered By: Lex Carroll on 09-21-2022 Ceruloplasmin [Mass/Vol] 22.4 mg/dL 16.0-31.0 [facility] Comment on above: Performed at: [employer] [employer] [address] [id number] Director: John Tang PhD, Phone: [phone] Serum or plasma free cefurox nhi measurement (mass/volume)Ordered By: Lex Carroll on 09-21-2022 Cefuroxime free [Mass/Vol] Negative Negative [facility] Comment on above: Performed at: [employer] [place], [place] [id number] Director: John Tang PhD, Phone: [phone] Serum or plasma high density lipoprotein (HDL) cholesterol measurementOrdered By: Lex Carroll on 09-21-2022 Cholesterol in HDL [Mass/Vol] 60 mg/dL - [facility] Comment on above: HDL CHOL ATP-III CLA SSIFICATION Cardiovascular RiskHDL > or equal to 60 mg/dL LOWHDL < 40 mg/dL HIGH Serum or plasma total choles terol/high density lipoprotein (HDL) cholesterol mass ratOrdered By: Lex Carroll on 09-21-2022 Cholesterol.total/Chol esterol in HDL [Mass ratio] 2.9 {ratio} <5.0 [facility] Sodium [Moles/volume] in Ser um or PlasmaOrdered By: Lex Carroll on 09-21-2022 Sodium [Moles/Vol] 141 mmol/L 136-145 [facility] Triglyceride [Mass/volume] i n Serum or PlasmaOrdered By: Lex Carroll on 09-21-2022 Triglyceride [Mass/Vol] 107 mg/dL 0-149 [facility] Comment on above: TRIG ATP III CLASSIF ICATIONTRIG less than 150 mg/dL NormalTRIG 150-199 mg/dL Borderline highTRIG 200-500 mg/dL High TRIG greater than 500 mg/dL Very highStandard traceable to the Center for Disease Conrtrol and Prevention (CDC) test method. Urea nitrogen [Mass/volume] in Serum or PlasmaOrdered By: Lex Carroll on 09-21-2022 Urea nitrogen [Mass/Vol] 9 mg/dL 7-25 [facility] WBC Auto (Bld) [#/Vol]Ordere d By: Lex Carroll on 09-21-2022 WBC (Bld) [#/Vol] 4.2 10*3/uL 4.1-10.5 [facility] PROGRESSon 04-05-2017 PROGRESS HNO ID: [id number] Author: Bebe Cunningham Ma Service: (none) Author Type: (none) Type: Progress Notes Filed: 04/05/2017 7:36 AM Note Text: PCP updated [facility] PROGRESS HNO ID: [id number] thor: Tanisha Clarkice: (none)Author Type: PhysicianType: Progress NotesFiled: 04/05/2017 7:36 AMNote Text:This note was created using WeMonitorriter.AfshinHarsh Blandon is a 61 year old male.Review of SystemsObjectiveThere were no vitals taken for this visit.Physical ExamAssessment and PlanPlease remove me as PCP if he is moving out of state and plans toestablish elsewhere.Thank you. [facility] CNPTOUTREACHon 04-04-[address] [facility] Patient Outreach ([facility]) NATHANIEL BLANDON JOSEPH León ([id number]) 1955 MDate Time Provider Zklwbmrzot42/19/17 TANISHA VAZQUEZ [facility] During your visit today, we recorded the following information about you:Bebe Cunningham Ma 04/05/2017 7:36 AM SignedSee refill request 03/30, pt moving to out of [facility] , do you want to updatePCPAmbadriana Vazquez MD 04/05/2017 7:36 AM SignedThis note was created using WeMonitorriter.SubjectiveWill jonathon E Jamia is a 61 year old male.Review of SystemsObjectiveThere were no vitals taken for this visit.Physical ExamAssessment and PlanPlease remove me as PCP if he is moving [facility] and [facility]Thank you.Bebe Cunningham Ma 04/05/2017 7:36 AM SignedPCP updatedAllergies As of Date: 04/04/2017 Noted Allergy ReactionBACTRIM (SULFAMETHOXAZOLE-TRIMETH *12/15/2014 2 - RashDate Reviewed: 01/04/2017Reviewed by: Bebe Cunningham Ma - Fully AssessedReason for Visit: [facility]/Care Gap Outreach [[id number]]Prescriptions as of 04/04/2017 Sig: METOPROLOL SUCCINATE ER [...] polyps [Z86.010]Follow-up and Disposition History RecordedEncounter Number: [id number] Status:Closed by BEBE CUNNINGHAM MA on 04/05/17 [facility] PROGRESSon 04-04-2017 PROGRESS HNO ID: [id number] Author: Bebe Cunningham Ma Service: (none) Author Type: (none) Type: Progress Notes Filed: 04/05/2017 7:36 AM Note Text: See refill request 03/30, pt moving to out of [facility] , do you want to update PCP [facility] OBSOLETEon 03-30-2017 OBSOLETE Refill ([facility]) NATHANIEL BLANDON AM ([id number]) 1955 [facility] Time Provider Faywepmror24/14/17 TANISHA VAZQUEZ [facility] During your visit today, we recorded the following information about you:Bebe Cunningham Ma 03/30/2017 4:25 PM SignedPt due for yearly split in Shyam Cunningham Ma 03/31/2017 3:12 PM SignedPt states they are moving to [place] he has apt to see a new [...] Status:Closed by VIRGINIA SAUCEDA CNP on 03/31/17 [facility] 02-13-2017 [facility] Nurse Visit ([facility]) [facility] BLANDON [facility] ([id number]) 1955 [facility] Ybzgsidrzf61/30/17 5:50 PM NURSE EYAD COLLAZO [facility] During your visit today, we recorded [...] by JUNAID OFFICE MGOTONIEL Ortega on 02/13/17 [facility] 02-13-2017 [facility] NATHANIEL BLANDON AM ([id number]) 1955 MDate Time Provider Gvlxyjjvun33/30/17 TANISHA VAZQUEZ During your visit today, we recorded the following information about you:Bebe Cunningham Ma 02/13/2017 2:[address] [facility]:Original authorizing provider: Ruben Iqbal would like a refill of the following medications:zolpidem (AMBIEN) 10 mg tab [Tanisha Vazquez MD]Preferred pharmacy: [id number] [place] [address] - [id number] - [phone] [address]IDER [id number]:Bebe Cunningham Ma 02/13/2017 2:38 PM SignedScript pending [...] Status:Closed by TANISHA VAZQUEZ MD on 02/13/17 [facility] CNOVon 01-04-2017 CNOV Office Visit ([facility]) NATHANIEL BLANDON AM ([id number]) 1955 MDate Time Provider Department01/04/17 9:00 AM TANISHA VAZQUEZ [facility] During your visit today, we recorded the following information about you: Temperature Pulse Blood pressure Weight 98.2 degrees 59/minute 172/93 98 Karina Vazquez MD 01/04/2017 9:00 AM Leonidrakanjonathon Ayalag is a 61 year old male here [...] LT- XR FOOT GENERAL 3V AP/LAT/OBL LTBAILEY Iqbaleferring Provider: TANISHA VAZQUEZ [[id number]]Allergies As of Date: 01/04/2017 Noted Allergy ReactionBACTRIM (SULFAMETHOXAZOLE-TRIMETH *12/15/2014 2 - RashDate Reviewed: 01/04/2017Reviewed by: Bebe Cunningham Ma - Fully AssessedReason for Visit: Acute Visit [896] Cmt: swollen toe x 2 weeksReason For Visit History RecordedPrimary Visit Diagnosis:Great toe pain, left [M79.675]Order(s):XR TOE AP/LAT/OBL LT [[id number]] Order #: [id number] FUTURE XR FOOT GENERAL 3V AP/LAT/OBL LT [[id number]] Order #: [id number] FUTUREPrescriptions as of 01/04/2017 Sig: METOPROLOL SUCCINATE [...] meals. Disc: Course of therapy completedEncounter Number: [id number] Status:Closed by TANISHA VAZQUEZ MD on 01/04/17 [facility] Jose Carlos 01-04-2017 CNPN Telephone ([facility]) JAMIANATHANIEL AM ([id number]) 1955 MDate Time Provider Department01/04/17 TANISHA VAZQUEZ [facility] During your visit today, we recorded [...] T TO ORTHOPAEDIC SURGERY [[id number]] Order #: [id number]: 1Prescriptions as of 01/04/2017 Sig: METOPROLOL SUCCINATE [...] by TANISHA VAZQUEZ MD on 01/04/17 [facility] PROGRESSon 01-04-2017 PROGRESS HNO ID: [id number] thor: Jaclyn Lowe (Lisa) Ej: (none)Author Type: TechnicianType: Progress NotesFiled: 01/04/2017 9:36 AMNote Text: Radiology Service Progress NotePATIENT NAME: Charles AyalagMRN: [id number] OF SERVICE: January 04, 2017TIME: 9:36 AMPATIENT IDENTITY VERIFICATION COMPLETED USING TWO (2) METHODS: Patientconfirmed name verbally and Date of .PATIENT GENDER DATA: MalePATIENT RELEVANT IMPLANT DATA REVIEWED: Not ApplicableRADIOLOGY DEPARTMENT: General X-ray: Exam(s) Completed: Lower ExtremityX-Ray(s): Foot, Left and Wt. Bearing and Toes, Left:PERIPHERAL IV DATA: Not applicableSIGNED BY: Jaclyn Diaz, [facility] SERVICESSept2016 9:36 AM [facility] PROGRESS HNO ID: [id number] thor: Tanisha Horne: (none)Author Type: PhysicianType: Progress [...] allergiesREVIEW OF SYSTEMS:As noted in HPIPHYSICAL EXAMINATION: [id number]: 172/93BP Site: Left ArmBP Position: SittingBP Cuff [...] GENERAL 3V AP/LAT/OBL LTTanisha Vazquez MD [facility] XR FOOT 3V AP/LAT/OBL LTon 0 [...] phalanx with extension into the 1st IP joint.Open Pit Quarry Supervisor: SRINI Transcribe Date/Time: Jan 04 2017 10:28ADictated by : MALORIE NICHOLS MDThis examination was interpreted and the report reviewed and electronically signed by: MALORIE NICHOLS MD on Jan 04 2017 2:47PM [id number] [facility] XR TOE 3V AP/LAT/OBL LTon XR [...] phalanx with extension into the 1st IP joint.Open Pit Quarry Supervisor: PSCB Transcribe Date/Time: Jan 04 2017 10:28ADictated by : MALORIE NICHOLS MDThinikolai examination was interpreted and the report reviewed and electronically signed by: MALORIE NICHOLS MD on Jan 04 2017 2:47PM [id number] [facility] 12-11-2016 [facility] Telephone ([facility]) [facility]ATHANIEL BLANDON AM ([id number]) 1955 [facility] Department12/11/16 COY BLANCHARD [facility] During your visit today, we recorded [...] ReactionBACTRIM (SULFAMETHOXAZOLE-TRIMETH *12/15/2014 2 - RashDate Reviewed: 08/26/2017Reviewed by: Coy Blanchard MD - Fully AssessedReason [...] Status:Closed by COY BLANCHARD MD on 12/12/[address] ([facility]) NATHANIEL BLANDON AM ([id number]) 1955 MDate Time Provider Department12/10/16 9:30 AM COY BLANCHARD [facility] During your visit today, we recorded the following information about you: Temperature Pulse Blood pressure Weight 98.5 degrees 88/minute 158/92 95.7 kgCoy Blanchard MD, MD 12/10/2016 9:59 AM ApurvaCharles Traore Jamia is a 61 year old male [...] ?F) (Oral) Wt 95.7 kg (211 lb) JmL952% BMI 30.71 kg/m2BMI 30.71 kg/(m2)General: alert and [...] MG TABLET- URIC ACID BLOODMattjose juan Blanchard MDAddievilleailyn [facility] 12/10/2016 9:58 AM SignedPhlebotomy was performed per [...] 1 URIC ACID BLOOD [SQURIC] Order #: [id number] as of 12/10/2016 Sig: METOPROLOL SUCCINATE ER [...] colonic polyps [Z86.010]Visit Notes:>> Prema Romano MA [facility] [[email or web address]] Dec 10, 2016 9:57 AM Status: SignedPhlebotomy [...] to improve.Follow-up and Disposition History RecordedEncounter Number: [id number] Status:Closed by COY BLANCHARD MD on 12/10/16 [facility] PROGRESSon 12-10-2016 PROGRESS HNO ID: [id number] thor: Coy Blanchard, MDService: (none)Author Type: PhysicianType: Progress NotesFiled: 12/10/2016 9:59 AMNote Text:Charles Blandon is a 61 year old male here complaining of left toe pain.According to the patient, he states [facility]. Last [...] MG TABLET- URIC ACID BLOODMattjose juan Blanchard MD [facility] Uric Acidon 12-10-2016 Urate 8.2 mg/dL High 4.0-8.1 [facility] Comment on above: Performed By: #### U ANTHONY ####[facility] [address] [place], [place] [phone] CNOVon 11-01-2016 CNOV Office Visit ([facility]) NATHANIEL BLANDON AM ([id number]) 1955 MDate Time Provider Department11/01/16 9:30 AM ROYCE ARAIZA During your visit today, we recorded the following information about you: Pulse Blood pressure 57/minute 165/82Alok MD Teodora 11/01/2016 2:06 PM SignedDERMATOLOGY CONSULT FOR [facility] DATE: 11/01/2016PRIMARY CARE PHYSICIAN: MORENA Iqbal PROVIDER:Tanisha Vazquez MD[address] [place] [address]Consultation requested for an opinion regarding the evaluation and treatmentof skin cancer. My final impression and recommendations will be communicatedback to the requesting physician by way of the shared medical record or lettervia US mail.SUBJECTIVECHIEF COMPLAINT: BCCHISTORY OF PRESENT ILLNESSBIOPSY INFORMATION:1. Pathology Results: BCC Nodular and Ulcerated of the LEFT TEMPLEReport Number: Inside Pathology [id number] Performed: 08/10/2016Performed By: [facility] ProviderPast Treatment: No Past Treatment Tumor Type: PrimaryPresent For: unknown amount of month(s)Signs ANDamp; Symptoms: Non-healingPAST DERM HISTORY: No History of Skin CancerFAMILY HISTORY: No History of Skin CancerPAST MEDICAL HISTORYDiagnosis Date- Recinos's esophagus- GERD (gastroesophageal reflux disease)- HTN (hypertension)- Hx of colonic polyps- Osteoporosis- Umbilical herniaPAST SURGICAL [id number]: CHOLECYSTECTOMYNo date: COLONOSCOPY Comment: every 3 yearsNo [...] Nose, Chin, Lips, Ears, Periauricular Skin and Buddhism)Pre-op Size: 0.6 cm - 1 cm, (0.7cm [...] and Past Histories independentlygathered by the clinical cell support operator and the remaining scribed noteaccurately describes my personal service to the patient.SIGNATURE: Royce Araiza MD PATIENT NAME: Charles AyalagDATE: November 01, 2016 : 10:20 AM PAGER/CONTACT #:MOHS MICROGRAPHIC OPERATIVE REPORTSERVICE DATE: 11/01/2016SERVICE TIME: 9:10 AMLOCATION:Celine TraoreGreater [facility] [place], [place] [address]HQGSGIDIL PROVIDER:Tanisha Vazquez MD[address] [facility] [id number] START TIME: 941PROCEDURE END TIME: URGEON: Dr. 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 November 01, 2016 10:29 AM.I agree with the Chief Complaint, ROS, and Past Histories independentlygathered by the clinical cell support operator and the remaining scribed noteaccurately describes my personal service to the patient.SIGNATURE: Royce Araiza MD PATIENT NAME: Charles AyalagDATE: November 01, 2016 : 9:10 AM PAGER/CONTACT #:Lis Serrano, RN, RN 11/01/2016 10:29 AM SignedWOUND CARE [...] SurgeryDepartment to speak to a Nurse at [phone].After 5 pm, nights, and weekends, please call [phone] or and ask for the dermatology surgery fellow air support operations operator.Referring Provider: TANISHA VAZQUEZ [[id number]]Allergies As of Date: 11/01/2016 Noted Allergy ReactionBACTRIM (SULFAMETHOXAZOLE-TRIMETH *12/15/2014 2 - RashDate Reviewed: 11/01/2016Reviewed by: Royce Araiza - Fully AssessedPrimary Visit Diagnosis:Basal cell carcinoma of left orthodoxy region [C44.319]Prescriptions as of 11/01/2016 Sig: METOPROLOL [...] Department to speak to a Nurse at [phone]. After 5 pm, nights, and weekends, please call [phone] or and ask for the dermatology surgery fellow air support operations operator.Disposition: Return in about 6 weeks (around 12/13/2016) for WOUND CHECK.Follow-up and Disposition History RecordedEncounter Number: [id number] Status:Closed by ROYCE ARAIZA MD on 11/01/16 [facility] PROGRESSon 11-01-2016 PROGRESS HNO ID: [id number] thor: Royce Lindoervice: (none)Author Type: PhysicianType: Progress NotesFiled: 11/01/2016 2:06 PMNote Text:DERMATOLOGY CONSULT FOR MOHSSERVICE DATE: 11/01/2016[facility]: MORENA Iqbal PROVIDER:Tanisha Vazquez MD[address] [facility] [id number] requested for an opinion regarding the evaluation andtreatment of skin cancer. My final impression and recommendations will becommunicated back to the requesting physician by way of the shared medicalrecord or letter via [place] mail.SUBJECTIVECHIEF COMPLAINT: BCCHISTORY OF PRESENT ILLNESSBIOPSY INFORMATION:1. Pathology Results: BCC Nodular and Ulcerated of the LEFT TEMPLEReport Number: Inside Pathology [id number] Performed: 08/10/2016Performed By: [facility] ProviderPast Treatment: No Past Treatment Tumor Type: PrimaryPresent For: unknown amount of month(s)Signs AND Symptoms: Non-healingPAST DERM HISTORY: No History of Skin CancerFAMILY HISTORY: No History of Skin CancerPAST MEDICAL HISTORYDiagnosis Date- Recinos's esophagus- GERD (gastroesophageal reflux disease)- HTN (hypertension)- Hx of colonic polyps- Osteoporosis- Umbilical herniaPAST SURGICAL [id number]: CHOLECYSTECTOMYNo date: COLONOSCOPY Comment: every 3 yearsNo [...] Eyebrows, Nose, Chin, Lips, Ears, Periauricular Skinand Buddhism)Pre-op Size: 0.6 cm - 1 cm, (0.7cm [...] and Past Histories independentlygathered by the clinical cell support operator and the remaining scribed noteaccurately describes my personal service to the patient.SIGNATURE: Royce Araiza MD PATIENT NAME: Charles AyalagDATE: November 01, 2016 : 10:20 AM PAGER/CONTACT #:MOHS MICROGRAPHIC OPERATIVE REPORTSERVICE DATE: 11/01/2016SERVICE TIME: 9:10 AMLOCATION:Celine Inderjit TraoreGreater [facility] [place], [place] [address]DETJFLVGP PROVIDER:Tanisha Vazquez MD[address] [facility] [id number] START TIME: 941PROCEDURE END TIME: URGEON: Dr. 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 November 01, 2016 10:29 AM.I agree with the Chief Complaint, ROS, and Past Histories independentlygathered by the clinical cell support operator and the remaining scribed noteaccurately describes my personal service to the patient.SIGNATURE: Royce Araiza MD PATIENT NAME: Charles EvansATE: November 01, 2016 : 9:10 AM PAGER/CONTACT #: Sammy [facility] CNNURSEon 10-17-2016 [facility] Nurse Visit ([facility]) NATHANIEL BLANDON AM ([id number]) 1955 MDate Time Provider Department10/17/16 7:00 AM NURSE [facility] During your visit today, we recorded the following information about you:Constance Mancuso [employer] 10/17/2016 1:46 PM SignedPhlebotomy was performed per the order of Tanisha Vazquez M.D.., accessing leftantecubital vein.Needle removed intact. Dressing secured with tape.Patient denies discomfort, dizziness, light-headedness, or weakness and leftthe office ambulatory..Referring Provider: TANISHA VAZQUEZ [[id number]]Allergies As of Date: 10/17/2016 Noted Allergy ReactionBACTRIM (SULFAMETHOXAZOLE-TRIMETH *12/15/2014 2 - RashDate Reviewed: 08/10/2016Reviewed by: Bebe Cunningham Ma - Fully AssessedVisit Diagnoses:Abnormal LFTs [R79.89] Elevated fasting blood sugar [R73.01]Order(s):COMP METABOLIC PANEL [SQCMP] Order #: [id number] HGB A1C [KSOHO6T] Order #: [id number] as of 10/17/2016 Sig: METOPROLOL SUCCINATE ER [...] of colonic polyps [Z86.010]Visit Notes:>> Constance Mancuso [employer] [facility] Oct 17, 2016 1:42 PM Status: SignedPhlebotomy was performed per the order of Tanisha Vazquez M.D.., accessingleft antecubital vein.Needle removed intact. Dressing secured with tape.Patient denies discomfort, dizziness, light-headedness, or weakness andleft the office ambulatory.. Status:Closed by ELIDA LUISTIONCONSTANCE WYLIE on 10/17/16 Normal [facility] Comp Metabolic Panelon 10-17 Alanine aminotransferase (ALT) 38 U/L Normal 10-54 [facility] Comment on above: Performed By: #### C BRADLEY, HBA1C ####[address] [phone] Albumin 4.1 g/dL Normal 3.9-4.9 [facility] Comment on above: Performed By: #### C MP, HBA1C ####[facility] [place], [place] [phone] Alkaline phosphatase (ALP) 54 U/L Normal 36-108 [facility] Comment on above: Performed By: #### C MP, HBA1C ####[facility] [place], [place] [phone] Anion gap 20 mmol/L High 9-18 [facility] Comment on above: Performed By: #### C MP, HBA1C ####[facility] [facility] [place] [phone] Aspartate aminotransferase (AST) 43 U/L High 14-40 [facility] Comment on above: Performed By: #### C MP, HBA1C ####[place] [address] [address] [place] [phone] Bilirubin (total) 0.3 mg/dL Normal 0.2-1.3 [facility] Comment on above: Performed By: #### C MP, HBA1C ####[place] [address] [address] [place] [phone] Calcium 9.5 mg/dL Normal 8.5-10.2 [facility] Comment on above: Performed By: #### C MP, HBA1C ####[place] [address] [place] [phone] Chloride 101 mmol/L Normal 97-105 [facility] Comment on above: Performed By: #### C MP, HBA1C ####[place] [address] [address] [place] [phone] CO2 23 mmol/L Normal 22-30 [facility] Comment on above: Performed By: #### C MP, HBA1C ####[place] [address] [address] [place] [phone] Creatinine 1.02 mg/dL Normal 0.73-1.22 [facility] Comment on above: Performed By: #### C MP, HBA1C ####[place] [address] [address] [place] [phone] eGFR (non-black) mL/min/{1.73_m2} Normal [facility] Comment on above: Performed By: #### C MP, HBA1C ####[place] [address] [address] [place] [phone] Result Comment: eGFR (Estimated GFR) Units of [...] Glucose mass conc 90 mg/dL Normal 74-99 [facility] Comment on above: Result Comment: The [place] Diabetes Association (ADA) provides guidance for cutoff [...] Standards of Medical Care in Diabetes 2016, [place] Diabetes Association. Diabetes Care. 2016.39(Suppl 1). Performed By: #### C MP, HBA1C ####[facility] [place], [place] [phone] Potassium molar conc 4.6 mmol/L Normal 3.7-5.1 [facility] Comment on above: Performed By: #### C MP, HBA1C ####[facility] [address] [place], [place] [phone] Protein 7.1 g/dL Normal 6.3-8.0 [facility] Comment on above: Performed By: #### C MP, HBA1C ####[facility] [place], [place] [phone] Sodium 144 mmol/L Normal 136-144 [facility] Comment on above: Performed By: #### C MP, HBA1C ####[facility] [address] [place], [place] [phone] Urea nitrogen 18 mg/dL Normal 9-24 [facility] Comment on above: Performed By: #### C MP, HBA1C ####[facility] [address] [place], [place] [phone] Hemoglobin A1con 10-17-2016 Glucose mass conc 120 mg/dL Normal [facility] Comment on above: Result Comment: eAG: (Estimated average glucose) is a calculated value from HgbA1c and is sales representative groceries of the average blood glucose level in the last 2-3 month period. Performed By: #### C MP, HBA1C ####[facility] [address] [place], [place] [phone] Hemoglobin A1c/Hemoglobin.total mass fraction (Bld) 5.8 % High 4.3-5.6 [facility] Comment on above: Result Comment: [place] Diabetes Association guidelines indicate that patients with HgbA1c in the range 5.7-6.4% are at increased risk for development of diabetes, and intervention by lifestyle modification may be beneficial. HgbA1c greater or equal to 6.5% is considered diagnostic of diabetes. Performed By: #### C MP, HBA1C ####[facility] [place], [place] [phone] Vital Signs Date Time Vital Sign Value Performing Clinician Facility 07-05-2023 08:58-0400 Body weight 94.85 kg II Rustyra Delgado Work Phone: [facility] 07-05-2023 08:58-0400 Diastolic blood pressure 71 mm[Hg] II Rusty Delgado Work Phone: [facility] 07-05-2023 08:58-0400 Heart rate 88 /min II Rusty Delgado Work Phone: [facility] 07-05-2023 08:58-0400 Systolic blood pressure 121 mm[Hg] II Rusty Delgado Work Phone: [facility] 06-13-2023 17:15-0500 Diastolic blood pressure 62 mm[Hg] II Rusty Delgado Work Phone: [facility] 06-13-2023 17:15-0500 Heart rate 72 /min II Rusty Delgado Work Phone: [facility] 06-13-2023 17:15-0500 Respiratory rate 20 /min II Rusty Delgado Work Phone: [facility] 06-13-2023 17:15-0500 SaO2% (BldA) [Mass fraction] 94 % II Rusty Delgado Work Phone: [facility] 06-13-2023 17:15-0500 Systolic blood pressure 101 mm[Hg] II Rusty Delgado Work Phone: [facility] 06-13-2023 13:38-0500 Body height 175.26 cm II Rusty Delgado Work Phone: [facility] 06-13-2023 13:38-0500 Body mass index (BMI) [Ratio] 31.1 kg/m2 II Rusty Delgado Work Phone: [facility] 06-13-2023 13:38-0500 Body weight 95.7 kg II Rusty Delgado Work Phone: [facility] 06-13-2023 12:05-0500 Body temperature 98.2 [degF] II Rusty Delgado Work Phone: [facility] 05-31-2023 15:07-0500 Body height 175.3 cm Janneth Itzkowitz DO Work Phone: [facility] 05-31-2023 15:07-0500 Body mass index (BMI) [Ratio] 32.05 kg/m2 Janneth Itzkowitz DO Work Phone: [facility] 05-31-2023 15:07-0500 Body weight 98.43 kg Janneth Itzkowitz DO Work Phone: [facility] 05-31-2023 15:07-0500 Diastolic blood pressure 72 mm[Hg] Janneth Itzkowitz DO Work Phone: [facility] 05-31-2023 15:07-0500 Systolic blood pressure 120 mm[Hg] Janneth Itzkowitz DO Work Phone: [facility] 05-23-2023 06:44-0500 Body height 175.26 cm II Rusty Delgado Work Phone: [facility] 05-23-2023 06:44-0500 Body weight 99.79 kg II Rusty Delgado Work Phone: [facility] 05-18-2023 14:04-0500 Body height 175.3 cm Janneth Itzkowitz DO Work Phone: [facility] 05-18-2023 14:04-0500 Body mass index (BMI) [Ratio] 32.78 kg/m2 Janneth Itzkowitz DO Work Phone: [facility] 05-18-2023 14:04-0500 Body weight 100.7 kg Janneth Itzkowitz DO Work Phone: [facility] 05-18-2023 14:04-0500 Diastolic blood pressure 74 mm[Hg] Janneth Itzkowitz DO Work Phone: [facility] 05-18-2023 14:04-0500 Systolic blood pressure 120 mm[Hg] Janneth Itzkowitz DO Work Phone: [facility] 04-12-2023 11:00-0500 Body height 175.26 cm Lorna Ortega Other [facility] 04-12-2023 11:00-0500 Body mass index (BMI) [Ratio] 33.22 kg/m2 Lorna Ortega Other [facility] [employer] Other 04-12-2023 11:00-0500 Body weight 102.06 kg Lorna Ortega Other [facility] [employer] Other 04-12-2023 11:00-0500 Body weight 102.05 kg II Rusty Danny Work Phone: [facility] 04-12-2023 11:00-0500 Diastolic blood pressure 67 mm[Hg] Lorna Ortega Other [facility] 04-12-2023 11:00-0500 Systolic blood pressure 135 mm[Hg] Lorna Ortega Other [facility] 11-10-2022 11:00-0400 Body weight 99.79 kg Lorna Ortega Other [facility] [employer] Other 11-10-2022 11:00-0400 Diastolic blood pressure 74 mm[Hg] Lorna Ortega Other [facility] [employer] Other 11-10-2022 11:00-0400 Systolic blood pressure 127 mm[Hg] Lorna Ortega Other [facility] [employer] Other 09-21-2022 08:49-0400 Diastolic blood pressure 78 mm[Hg] II Rusty Delgado Work Phone: [facility] 09-21-2022 08:49-0400 Heart rate 50 /min II Rusty Delgado Work Phone: [facility] 09-21-2022 08:49-0400 SaO2% (BldA) [Mass fraction] 99 % II Rusty Delgado Work Phone: [facility] 09-21-2022 08:49-0400 Systolic blood pressure 125 mm[Hg] II Rusty Delgado Work Phone: [facility] 09-21-2022 07:36-0400 Body height 175.26 cm II Rusty Delgado Work Phone: [facility] 09-21-2022 07:36-0400 Body temperature 98.5 [degF] II Rusty Delgado Work Phone: [facility] 09-21-2022 07:36-0400 Body weight 95.25 kg II Rusty Delgado Work Phone: [facility] 09-21-2022 07:36-0400 Respiratory rate 16 /min II Rusty Delgado Work Phone: [facility] Encounters Encounter Date Encounter Type Care Provider Facility Start: 12-12-2023 End: 12-12-2023 ambulatory [facility] Facility:[facility] Start: 12-12-2023 End: 12-12-2023 Departed Referred II Rusty Delgado Work Phone: [facility] Start: 12-07-2023 End: 12-07-2023 ambulatory II Rusty Delgado Work Phone: [facility] Work Phone: Start: 12-07-2023 End: 12-07-2023 Departed Referred II Rusty Delgado Work Phone: [facility] Start: 11-27-2023 End: 11-27-2023 ambulatory [facility] Start: 11-15-2023 End: 11-15-2023 ambulatory RUSTY Patricia DANNY Not Available Start: 11-14-2023 End: 11-14-2023 ambulatory [facility] Start: 11-08-2023 End: 11-08-2023 ambulatory ROSALINO LAMAS Not Available Start: 10-13-2023 ambulatory [facility] [place] [facility] Start: 10-13-2023 End: 10-13-2023 ambulatory [facility] Start: 10-09-2023 End: 10-09-2023 ambulatory JANNETH VILLEGAS Not Available Start: 10-03-2023 End: 10-03-2023 ambulatory II Rusty Delgado Work Phone: [facility] Work Phone: Start: 10-03-2023 End: 10-03-2023 Departed Referred II Rusty Delgado Work Phone: [facility] Start: 10-02-2023 End: 10-02-2023 ambulatory LYNDSEY PATEL Not Available Start: 09-25-2023 End: 09-25-2023 ambulatory [facility] Start: 09-15-2023 End: 09-15-2023 ambulatory WARD VELÁSQUEZDICT Not Available Start: 09-05-2023 End: 09-05-2023 ambulatory WARD BENEDICT Not Available Start: 08-30-2023 End: 08-30-2023 ambulatory WARD VELÁSQUEZDICT Not Available Start: 08-22-2023 End: 08-22-2023 ambulatory [facility] Start: 08-07-2023 End: 08-07-2023 ambulatory [facility] Start: 07-18-2023 End: 07-18-2023 ambulatory FABY Syed WALE Not Available Start: 07-12-2023 End: 07-13-2023 ambulatory Janneth H Itzkowitz Facility:[facility] Start: 07-12-2023 End: 07-12-2023 Patient encounter procedure Jourdan ARRIAZA [facility] Start: 07-05-2023 End: 07-05-2023 ambulatory II Rusty Delgado Work Phone: [facility] Work Phone: Start: 07-05-2023 End: 07-05-2023 Patient encounter procedure II Rusty Delgado Work Phone: [facility] Gastroenterology Work Phone: Start: 06-29-2023 End: 06-29-2023 ambulatory JANNETH H ITZKOWITZ Not Available Start: 06-23-2023 ambulatory Janneth Itzkowitz Facil ity:[facility] Start: 06-22-2023 End: 06-22-2023 ambulatory JANNETH H ITZKOWITZ Not Available Start: 06-13-2023 End: 06-13-2023 Admission to same day surgery center II Rusty Delgado Work Phone: [facility] [place] Start: 06-13-2023 End: 06-13-2023 ambulatory Rusty Delgado Facility:[facility] Start: 06-02-2023 End: 06-02-2023 Patient encounter procedure II Rusty Delgado Work Phone: [facility]-Pre-Surgical Testing Work Phone: Start: 06-02-2023 End: 06-02-2023 ambulatory JUDITH Delgado Work Phone: [facility] Work Phone: Start: 05-31-2023 End: 05-31-2023 Office outpatient visit 25 minutes Janneht H Itzkowitz DO Work Phone: [employer] Comment on above: Fissure in ano (Prim chinmay Dx) Start: 05-31-2023 End: 05-31-2023 ambulatory JANNETH H ITZKOWITZ Not Available Start: 05-23-2023 End: 05-23-2023 Admission to same day surgery center JUDITH Delgado Work Phone: [facility] Work Phone: Start: 05-23-2023 End: 05-23-2023 ambulatory Rusty Delgado Facility:[facility] Start: 05-18-2023 End: 05-18-2023 Office outpatient new 45 minutes Janneth H Itzkowitz DO Work Phone: [employer] Comment on above: Fissure in ano Start: 05-18-2023 End: 05-18-2023 ambulatory JANNETH H ITZKOWITZ Not Available Start: 05-11-2023 End: 05-11-2023 ambulatory Lorna Ortega Other [employer] Other Start: 05-11-2023 Office outpatient visit 15 minutes Lorna Ortega [facility] Gastroenterology Start: 04-28-2023 End: 04-28-2023 ambulatory Lorna Ortega Other [employer] Other Start: 04-28-2023 Telephone encounter Lorna Coates [facility] Start: 04-27-2023 End: 04-27-2023 ambulatory Lorna Ortega Other [employer] Other Start: 04-27-2023 Telephone encounter Lorna Coates [facility] Start: 04-26-2023 End: 04-26-2023 Patient encounter procedure II Rusty Delgado Work Phone: [facility] Work Phone: Start: 04-26-2023 End: 04-26-2023 ambulatory Rusty Delgado Facility:[facility] Start: 04-13-2023 End: 04-13-2023 ambulatory Lorna Ortega Other [facility] [employer] Other Start: 04-13-2023 Telephone encounter Lorna Coates [facility] Start: 04-12-2023 Office outpatient visit 25 minutes Lorna Ortega [facility] Start: 04-12-2023 Telephone encounter Lorna Coates [facility] Start: 04-12-2023 End: 04-12-2023 Patient encounter procedure II Rusty Delgado Work Phone: [facility] Work Phone: Start: 04-12-2023 End: 04-12-2023 ambulatory II Rusty Delgado Work Phone: [facility] [employer] Other Start: 04-12-2023 End: 04-12-2023 Patient encounter procedure II Rusty Delgado Work Phone: [facility] Work Phone: Start: 04-03-2023 End: 04-03-2023 ambulatory Lorna Ortega Other [facility] Other Start: 04-03-2023 Telephone encounter Lorna Coates [facility] Start: 03-30-2023 End: 03-30-2023 ambulatory RUSTY Gomez DELGADO Not Available Start: 03-24-2023 End: 03-24-2023 ambulatory RUSTY Gomez DELGADO Not Available Start: 03-24-2023 End: 03-24-2023 ambulatory RUSTY DELGADO Not Available Start: 11-18-2022 End: 11-18-2022 ambulatory Lorna Ortega Other [facility] Other Start: 11-18-2022 Telephone encounter Lorna Coates [facility] Start: 11-15-2022 End: 11-15-2022 ambulatory II Rusty Delgado Work Phone: [facility] Work Phone: Start: 11-15-2022 End: 11-15-2022 Patient encounter procedure II Rusty Delgado Work Phone: [facility] [place] Work Phone: Start: 11-10-2022 End: 11-10-2022 ambulatory Lorna Ortega Other [employer] Other Start: 11-10-2022 Office outpatient visit 15 minutes Lorna Ortega [facility] Start: 11-03-2022 End: 11-03-2022 Patient encounter procedure II Rusty Delgado Work Phone: [facility] Work Phone: Start: 10-26-2022 End: 10-26-2022 ambulatory II Rusty Delgado Work Phone: [facility] Work Phone: Start: 10-26-2022 End: 10-26-2022 Departed Referred II Rusty Delgado Work Phone: [facility] Work Phone: Start: 10-26-2022 End: 10-26-2022 Patient encounter procedure II Rusty Delgado Work Phone: [facility] Work Phone: Start: 09-21-2022 End: 09-21-2022 Admission to same day surgery center II Rusty Delgado Work Phone: [facility] Work Phone: Start: 09-21-2022 End: 09-21-2022 ambulatory II Rusty Delgado Work Phone: [facility] Work Phone: Start: 02-13-2017 End: 02-13-2017 Ambulatory TANISHA [facility] Start: 01-04-2017 End: 01-04-2017 Ambulatory TANISHA [facility] Start: 12-10-2016 End: 12-10-2016 Ambulatory COY BLANCHARD [facility] Start: 11-01-2016 End: 11-02-2016 Ambulatory ROYCE ARAIZA [facility] Start: 10-17-2016 End: 10-17-2016 Ambulatory TANISHA [facility] Procedures Date Procedure Procedure Detail Performing [...] 05-12-2032 Screening for malignant neoplasm of colon [facility] Start: 05-26-2024 Urine screening for protein Diabetes: Urine Protein Screening [facility] Start: 05-24-2024 Glaucoma screening Diabetes: Retinopathy Screening [facility] Start: 08-24-2023 Hemoglobin A1c measurement Diabetes: Hemoglobin A1C [facility] Start: 06-13-2023 [facility] Start: 06-13-2023 [facility] Start: 06-13-2023 End: 06-13-2023 Patient encounter procedure 06/13/2023 1:30 PM EST Procedure Visit [facility] Janneth Villegas, DO [address] [place] [address] [facility] Start: 06-09-2023 End: 06-09-2023 Patient encounter procedure 06/09/2023 10:30 AM EST Office [facility] [address] [place] [phone] Janneth Villegas, DO [address] [place] [address] [address] [facility] Start: 05-26-2023 Medicare Annual Wellness (AWV) Medicare Annual Wellness (AWV) [facility] Start: 05-23-2023 [facility] Start: 02-23-2023 Hemoglobin A1c measurement Diabetes: Hemoglobin A1C [facility] Start: 11-03-2022 [facility] Start: 11-03-2022 Ultrasound elastography of liver Fibroscan (Not Applicable) [facility] Start: 10-26-2022 Ultrasound elastography of liver DH Fibroscan (Not Applicable) [facility] Start: 10-26-2022 [facility] Start: 09-21-2022 Hepatitis B core antibody measurement [facility] Start: 09-21-2022 End: 09-21-2022 [facility] Start: 1972 Urine screening for protein Diabetes: Urine Protein Screening [facility] Start: 08-03-1959 Pneumococcal Vaccine: 65+ Years (1 - PCV) Pneumococcal Vaccine: 65+ Years (1 - PCV) [facility] Start: 1955 Medicare Annual Wellness (AWV) Medicare Annual Wellness (AWV) [facility] Start: 1955 Screening for malignant neoplasm of colon [facility] Actin smooth muscle IgG Ab [Units/volume] in Serum [facility] Alpha 1 antitrypsin [Mass/volume] in Serum or Plasma [facility] Alpha 1 antitrypsin phenotyping [Identifier] in Serum or Plasma by Immunofixation [facility] Cefuroxime free [Mass/volume] in Serum or Plasma [facility] Ceruloplasmin [Mass/volume] in Serum or Plasma [facility] Hepatitis B virus galindo rface Ab [Presence] in Serum [facility] Hepatitis B virus galindo rface Ag [Presence] in Serum or Plasma by Immunoassay [facility] Hepatitis C virus Ig G Ab [Presence] in Serum or Plasma by Immunoassay [facility] Mitochondria M2 IgG Ab [Units/volume] in Serum [facility] Patient referral [facility] Work Phone: Immunizations Immunization Date Immunization Notes Care Provider [facility] 01-24-2023 influenza virus vaccine, unspecified formulation Jourdan ARRIAZA [facility] 04-30-2022 zoster vaccine recombinant Janneth Itzkowitz DO Work Phone: [facility] 03-22-2022 tetanus toxoid, reduced diphtheria toxoid, and acellular pertussis vaccine, adsorbed Janneth Itzkowitz DO Work Phone: [facility] 02-01-2022 influenza virus vaccine, unspecified formulation Jourdan ARRIAZA [facility] 02-01-2022 influenza, high dose seasonal, preservative-free Janneth Itzkowitz DO Work Phone: [facility] 02-17-2021 influenza virus vaccine, unspecified formulation Jourdan ARRIAZA [facility] 02-17-2021 influenza, high dose seasonal, preservative-free Janneth Itzkowitz DO Work Phone: [facility] 02-13-2017 influenza virus vaccine, unspecified formulation Jourdanharsh ARRIAZA [facility] 02-13-2017 influenza, injectabl e, quadrivalent, contains preservative Janneth Itzkowitz DO Work Phone: [facility] 02-01-2016 influenza virus vaccine, unspecified formulation Jourdan ARRIAZA [facility] 02-01-2016 influenza, seasonal, injectable Janneth Itzkowitz DO Work Phone: [facility] 03-24-2015 zoster vaccine, live Janneth Itzkowitz DO Work Phone: [facility] 02-10-2015 influenza virus vaccine, unspecified formulation Jourdan ARRIAZA [facility] 02-10-2015 influenza, seasonal, injectable Janneth Itzkowitz DO Work Phone: [facility] 01-14-2014 influenza virus vaccine, unspecified formulation Jourdan ARRIAZA [facility] 01-14-2014 influenza, seasonal, injectable Janneth Itzkowitz DO Work Phone: [facility] 01-23-2013 influenza virus vaccine, unspecified formulation Janneth Itzkowitz DO Work Phone: [facility] Payers Date Payer Category Payer Self-pay 2022 Medicare [employer] MEDICARE A DVANTAGE A[employer] MEDICARE REPLACEMENT [id number] 2022-Present [address] [place] [id number] [id number] 2002 Private Health Insurance [id number] 1955 Unknown [id number] 2.16.840.1.547266.3.579.2. 727 1955 Unknown [id number] 2.16.840.1.623673.3.579.2. 125 1953 Unknown [id number] 2.16.840.1.581438.3.579.2. 1258 1953 Unknown [id number] 2.16.840.1.816525.3.579.2. 125 1953 Unknown [id number] 2.16.840.1.725988.3.579.2. 1258 1953 Unknown [id number] 2.16.840.1.773470.3.579.2. 1258 1953 Unknown [id number] 2.16.840.1.179751.3.579.2. 1258 1953 Unknown [id number] 2.16.840.1.175169.3.579.2. 125 1953 Unknown [id number] 2.16.840.1.054038.3.579.2. 1258 1953 Unknown [id number] 2.16.840.1.383768.3.579.2. 1258 1953 Unknown [id number] 2.16.840.1.924297.3.579.2. 125 1953 Unknown [id number] 2.16.840.1.278822.3.579.2. 125 1953 Unknown [id number] 2.16.840.1.122518.3.579.2. 1258 1953 Unknown [id number] 2.16.840.1.951493.3.579.2. 125 1953 Unknown [id number] 2.16.840.1.305777.3.579.2. 1258 1953 Unknown [id number] 2.16.840.1.846184.3.579.2. 1259 Unknown [id number] 2.16.840.1.927143.3.579.2. 531 Unknown [id number] 2.16.840.1.671421.3.579.2. 531 Unknown [id number] 2.16.840.1.960625.3.579.2. 531 Unknown [id number] 2.16.840.1.329588.3.579.2. 531 Unknown [id number] 2.16.840.1.377299.3.579.2. 531 Unknown [id number] 2.16.840.1.122052.3.579.2. 531 Unknown [id number] 2.16.840.1.455412.3.579.2. 531 Unknown [id number] 2.16.840.1.606363.3.579.2. 531 Social History Date Type Detail Facility Start: 09-21-2022 End: 06-13-2023 Tobacco smoking status NHIS Ex-smoker (finding) [facility] Start: 1955 Sex Assigned At Male [facility] Start: 05-18-2023 End: 05-31-2023 Sex Assigned At [facility] End: 04-17-1989 History of tobacco use Current smoker [facility] End: 04-17-1989 History of tobacco use Cigarette Smoker [facility] Start: 11-17-2022 Tobacco use and exposure Smokeless tobacco non-user [facility] Start: 05-18-2023 End: 05-31-2023 History of Social function [facility] Start: 1955 Sex Assigned At Not on file [facility] Tobacco smoking status No Smokin g Status Entered [facility] Josue Goals Date Patient Goal Desired Activity /State Clinical Notes 09-21-2022 to 11-27-2023 Janneth Villegas, - 05/31/2023 3:15 PM Saúl Villegas, DO - 05/18/2023 2:00 PM EST Note Date & Type Note Facility 11-27-2023 Note Patient: Charles hernandez Procedure Summary Date: 11/27/23 Room / Location: [facility] Anesthesia Start: 1040 Anesthesia Stop: 110 Procedure: EGD Diagnosis: Alcoholic cirrhosis of liver [...] per anesthesia protocol. No notable events documented. [facility] 11-27-2023 Note Patient: Charles hernandez Procedure Summary Date: 11/27/23 Room / Location: [facility] Anesthesia Start: 1040 Anesthesia Stop: Procedure: EGD Diagnosis: Alcoholic cirrhosis of liver with ascites (CMS/HCC) Scheduled Providers: Irena Johnosn MD; Jl Kent MD; VALDEMAR Heath Responsible Provider: Jl Kent MD Anesthesia Type: MAC ASA Status: 3 Anesthesia Post Transport [facility] Patient Monitor: direct observation Transport: uneventful Patient condition is: stable [facility] 11-27-2023 Note Patient: Charles hernandez Procedure Information Date/Time: 11/27/23 1130 Scheduled providers: Irena Johnson MD; Jl Kent MD; VALDEMAR Heath Procedure: EGD Location: [facility] Relevant Problems Cardio Denies chest [...] Plan discussed with CAA. Additional Equipment Requests [facility] 11-08-2023 Note Refills provided [facility] 10-16-2023 Note Patient said the del george has been scheduled and is on its way. Aware they have to call [facility] every time they need a refill. Have no further questions. Will no longer follow up. Darnell Razo [facility] 10/25/23 10:27 AM [facility] 10-16-2023 Note Emma MALDONADO approved through 04/10/2024, previous approval. Pt has not been on lactulose, prescribed lactulose on the same day as Xifaxan. Based on discussion with annual income for 2 people in the household is $52,000. Should qualify for PAP. Will email provider and pt portions. Carmella Olivo, PharmD, BCACP 10/16/23 1:56 PM [facility] [phone] [facility] 10-16-2023 Note Patient assistance a pplication approved through [facility]. Approval good through 04/16/2024. Patient Case ID/Approval Number: [id number]. Notified patient and will follow up to confirm shipment/delivery is scheduled. Yamini Camarillo [facility] 10/23/23 10:11 AM [facility] 10-16-2023 Note Have received pt. Po rtion of PAP form still waiting on prescribers portion. Re faxed the forms over to GI. Send PAP forms in once prescribers portion is signed. Darnell Razo CPhT [facility] 10/20/23 1:20 PM [facility] 10-13-2023 Note I called and discuss ed the results of his labwork with the patient. With his sodium level being slightly below baseline, we will have him repeat his labs prior to EGD tomorrow. He expressed clear understanding. If he continues to have low sodium, we may need to consider holding diuretics. [facility] 10-13-2023 Note Attestation signed by Irena Johnson [...] documentation in this note for specific details. [facility] Gastroenterology Follow-up visit CHIEF COMPLAINT [...] function of stomach (more content not included)... [facility] 09-14-[address] ordered to rule o ut chronic mesenteric ischemia [facility] 08-07-2023 Note Attestation signed by Arias Jesus MD at 08/07/2023 2:45 PM I personally saw the patient with the fellow, I performed/participated in the critical/david portions of the service, I was directly involved in the management and treatment plan of the patient. I discussed the case management with the fellow and agree with the findings and plan as documented by the fellow. [facility] Gastroenterology New Patient Visit - History & Physical CHIEF COMPLAINT Chief Complaint Patient presents with New Patient Weight Loss 30 pound weight loss since Thanksgiving. Pt recently had surgery for 3 polyps [...] % gel, Apply topically., Disp: , Rfl: yiifkkamc-rbwpli-lylsav-petrol 5-0.25-14.4-15 % cream, APPLY TO AFFECTED AREA [...] Rfl: zolpidem (A (more content not included)... [facility] 05-31-2023 History of Present illness Narrative Images [...] reflux disease) History of colon polyps Hypertension ([facility]) Social History Tobacco Use Smoking status: Former [...] has been scheduled. documented in this encounter [facility] 05-18-2023 History of Present illness Narrative Images from the original note were not included. Charles Blandon 1955 Charles Blandon is a 67 y.o. male presents with chief complaint of painful hemorrhoid HPI: HPI Huber states he has a hemorrhoid for the last 5-6 weeks. He was seen by Dr. Carroll's TEST DESK OPERATOR who referred him to our office. Huber [...] weeks for recheck documented in this encounter [facility] 05-11-2023 Evaluation note Encounter Date Diagnosis Assessment Notes Apr, Nausea (ICD-10 - R11.0) Apr, Cirrhosis of liver (ICD-10 - K74.60) Apr, Early satiety (ICD-10 - R68.81) [facility] Other 12-28-2023 Evaluation note* Encounter Date Diagnosis Assessment Notes Treatment Notes Treatment Clinical Notes Mar, Lower abdominal pain (ICD-10 - R10.30) [facility] Other 12-27-2023 Evaluation note* Encounter Date Diagnosis [...] - R68.81) Mar, Bloating (ICD-10 - R14.0) [facility] Other 07-27-2023 Evaluation note* Encounter Date Diagnosis Assessment Notes Treatment Notes Treatment Clinical Notes Oct, 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 Pt advised to take dicyclomine 10mg TID. Pt advised to start this BID, morning and evening. Pt advised to start fiber gummies. Pt advised to take three at a time. Pt advised to start probiotic (fos4X) Pt RTO 3 MONTHS [facility] Other 06-07-2023 [facility] + [facility] note No data available for this section [facility] Evaluation noteNo assessment information available [facility] Work Phone: Evaluation noteNo 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 [facility]* Diagnosis Onset Date Resolution Status Cirrhosis acute Dyspepsia and disorder of function of stomach acute Emesis acute Esophageal dysmotility acute [facility] Work Phone: History and physical note Author Lex Carroll [facility] September 21, 2022 8:04am Note Date/Time September 21, 2022 8:04a m [facility] [address] [place] [address] Gastroenterology H&P Signed Patient: Charles Blandon MR#: [id number] : 1955 Acct:[id number] Age/Sex: 67 / M Adm Date: 3 Loc: Room: Type: [facility] Attending Dr: Lex Carroll MD [...] signed by Lex Carroll MD> 09/21/22 0804 [facility] Work Phone: History general Narrative - Reported* Type Description Date Medical History hypertension Medical History GERD Surgical History gallbladder Surgical History elbow surgery Surgical History mesh placement [facility] Other Hospital Discharge instructions Additional Instructions DISCHARGE [...] problems. -Follow up with PCP. -Office number [phone].[facility] Work Phone: Hospital Discharge instructions No data available for this section [facility] Progress note No data available for this section [facility] Summary Purpose Family History Relationship Condition Age at Onset Recorded Date/T nih Not Specified No pertinent family history Unknown Relationship Condition Age at Onset Recorded Date/T nhi Not Specified No pertinent family history Unknown father Unknown Hypertension Unknown family member Hypertension Unknown Not Specified Unknown Relationship Condition Age at Onset Recorded Date/T nhi Not Specified No pertinent family history Unknown father Unknown Hypertension Unknown family member Hypertension Unknown mother Unknown Advance Directives Advance Directive Response Recorded Date/ Time Advance [...] stomach Emesis Esophageal dysmotility Chief Complaint Unknown Chief Complaint Unknown Unknown Chief Complaint Unknown Unknown Unknown Additional Source Comments (unrecognized sect ion and content) No Status Records FoundNo Status Records FoundNo Status Records FoundNo Status Records FoundNo Status Records Found INFORMATION SOURCE (unrecogn ized section and content) DATE CREATED AUTHOR 10/10/2017 [facility] DATE CREATED AUTHOR AUTHOR'S ORGANIZ ATION 07/14/2023 [facility] DATE CREATED AUTHOR AUTHOR'S ORGANIZ ATION 11/17/2023 [facility] DATE CREATED AUTHOR AUTHOR'S ORGANIZ ATION 12/12/2023 [facility] DATE CREATED AUTHOR AUTHOR'S ORGANIZ ATION 12/12/2023 [facility] Care Teams (unrecognized sec tion and content) [...] Active Lorna Ortega APRN Attending Provider Active 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 Start Date End Date Rusty Delgado MD [address] [address] [place] [address] PCP - [employer] 04/17/22 Rusty Delgado MD [address] [facility] [address] [place] [address] PCP - General Internal Medicine 11/23/22 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 Start Date End Date Rusty Delgado MD [address] [facility] [address] [place] [address] PCP - [employer] 04/17/22 Rusty Delgado MD [address] [facility] [address] [place] [address] PCP - General Internal Medicine 11/23/22 Team Status: Inactive Member Role Status Dates Lorna Ortega APRN Attending Provider Active Start: April 12, 2023 End: April 12, 2023 Team Status: Inactive Member Role Status Dates Rusty Delgado II MD Primary Care Provider Active Start: April 12, 2023 End: April 12, 2023 Lorna Ortega APRN Attending Provider Active Start: April 12, 2023 End: April 12, 2023 Team Status: Inactive Member Role Status Dates Rusty Delgado II MD Primary Care Provider Active Start: April 26, 2023 End: April 26, 2023 Lorna Ortega APRN Attending Provider Active Start: April 26, 2023 End: April 26, 2023 Team Status: Inactive Member Role Status Dates Rusty Delgado II MD Primary Care Provider Active Start: May 23, 2023 End: May 23, 2023 Minh Griffith MD Attending Provider Active Start: May 23, 2023 End: May 23, 2023 Team Status: Inactive Member Role Status Dates Rusty Delgado II MD Primary Care Provider Active Start: June 02, 2023 End: June 02, 2023 Janneth Villegas DO Attending Provider Active Start: June 02, 2023 End: June 02, 2023 Team Status: Inactive Member Role Status Dates [...] October 03, 2023 End: October 03, 2023 Team Status: Inactive Member Role Status Rosa Delgado II MD Primary Care Provider Active Start: December 07, 2023 End: December 07, 2023 Devyn ANDRADE DO Attending Provider Active Start: December 07, 2023 End: December 07, 2023 Team Status: Inactive Member Role Status Rosa Delgado II MD Primary Care Provider Active Start: December 07, 2023 End: December 07, 2023 Ward Stern MD Attending Provider Active Start: December 07, 2023 End: December 07, 2023 Team Status: Inactive Member Role Status Rosa Delgado II MD Primary Care Provider Active Start: December 12, 2023 End: December 12, 2023 Devyn ANDRADE DO Attending Provider Active Start: December 12, 2023 End: December 12, 2023 REASON FOR VISIT (unrecogniz ed section and content) Reason Comments painful hemorrhoid Specialty Diagnoses / Procedures Referred By [facility] Referred To Contact General Surgery Diagnoses Unspecified hemorrhoids Procedures [place] OFFICE/OUTPATIENT [facility] 60 MINUTES Lorna Ortega MD [address] [facility] [address] [place] [address] [place] [address] [facility] [address] [place] [address] Referral ID Status Reason Start Date Expiration Date V isits Requested Visits Authorized [id number] Closed Specialty Services Required 05/12/2023 11/08/2023 1 [...] BE BASED ON THE PRIMARY CLINICAL RECORDS. [facility] [employer] [facility]. provides no warranty or guarantee of the accuracy or completeness of information in this document.
[2023-12-13 11:37] LABS: Alanine Aminotransferase 26 U/L (16-63); Albumin Globulin Ratio 0.6; Albumin Level 2.5 g/dL (3.4-5.0); Alkaline Phosphatase 112 U/L (46-116); Anion Gap 15.4; Aspartate Amino Transferase 50 U/L (15-37); BUN Creatinine Ratio 11.6; Bilirubin Total 2.1 mg/dL (0.2-1.0); Calcium 9.1 mg/dL (8.5-10.1); Carbon Dioxide 24.4 mmol/L (21.0-32.0); Chloride 100 mmol/L (98-107); Estimated GFR (African America >60 (>=60); Estimated GFR (Non-African Ame 55 (>=60); Globulin 4.4 g/dL; Glucose 97 mg/dL (74-106); Potassium 4.8 mmol/L (3.5-5.1); Sodium 135 mmol/L (136-145); Total Protein 6.9 g/dL (6.4-8.2)
== END 2023-12-13 10:29 | disposition home or self-care (01) ==
LOC: LAB 10:29
PROVIDERS: PCP Internal Medicine
DX: K70.31 Alcoholic cirrhosis of liver with ascites (principal)
CPT/HCPCS: 36415; 80053

== ENCOUNTER 2023-12-20 14:20 | Outpatient (OUT) | payer MEDICARE, SELFPAY ==
--- OUTSIDE RECORDS SUMMARY | 2023-12-20 14:26 | XMS_ITS | CCD ---
Author Organization [facility] CliniSyin Care Team Providers Care Calculator Operator Name Role Phone CHEMA, TANISHA Unavailable Unavailable TEODORA, ROYCE Unavailable Unavailable CHEMA, TANISHA Unavailable Unavailable COY BLANCHARD Unavailable Unavailable CHEMA, TANISHA Unavailable Unavailable CHEMA, TANISHA Unavailable Unavailable CHEMA, TANISHA Unavailable Unavailable MD Lex Carroll Attending Provider [phone] JUDITH Delgado Primary Care Provider Lorna Ortega Unavailable TALA Ortega Attending Provider JUDITH Delgado Primary Care Provider TALA Ortega Attending Provider Rusty Delgado MD Unavailable [phone] Rusty Delgado MD Primary Care Provider MD Minh Griffith Attending Provider DO Janneth Villegas Attending Provider JUDITH Delgado Primary Care Provider TALA Ortega Attending Provider MD Minh Griffith Attending Provider DO Janneth Villegas Attending Provider RUSTY DELGADO Primary Care Physician Janneth Villegas Referring Unavailable Jourdan ARRIAZA Attending Unavailable JUDITH Delgado Primary Care Provider [phone] MD Ward Stern [facility], DO Shepard Attending Provider Ward Stern Admitting Unavailable Ward Stern Attending Unavailable Rusty Delgado Primary Care Unavailable [facility], Devyn Admitting Unavailable [facility], Devyn Attending Unavailable Rusty Delgado Primary Care Unavailable Rusty Delgado Primary Care Unavailable ScovannerLorna Admitting Unavailable ScovannerLorna Attending Unavailable Rusty Delgado Primary Care Unavailable ScovannerLorna M Admitting Unavailable ScovannerLorna M Attending Unavailable Rusty Delgado Primary Care Unavailable Itzkowitz, Janneth Admitting Unavailable Itzkobernicetz, Janneth Attending Unavailable Rsuty Delgado Primary Care Unavailable Minh Griffith Admitting Unavailabl e Minh Griffith Attending Unavailabl e Rusty Delgado Primary Care Unavailable Itzkojonathan, Janneth Attending Unavailable Itzkobernicetz, Janneth Admitting Unavailable Rusty Delgado Primary Care Unavailable Ward Stern Admitting Unavailable Ward Stern Attending Unavailable [facility], DO Shepard Attending Provider BAKARI, JANNETH H Attending Unavailable LORNA ORTEGA Referring Unavailable ITZKOBERNICETZ, JANNETH H Attending Unavailable ITZCATALINA, JANNETH H Attending Unavailable ITZCATALINA, JANNETH H Attending Unavailable FABY ECHEVARRIA Attending Unavailable ISAIAS, WARD Attending Unavailable FABY ECHEVARRIA Referring Unavailable BENEDICT, WARD Referring Unavailable CALVINCTWARD Referring Unavailable LYNDSEY PATEL Attending Unavailable BENEDICT, AWRD Referring Unavailable ROSALINO LAMAS Attending Unavailable RUSTY DELGADO Attending Unavailable RUSTY DELGADO Attending Unavailable RUSTY DELGADO Referring Unavailable FABY ECHEVARRIA Attending Unavailable RUSTY DELGADO Attending Unavailable IRENA JOHNSON Attending Unavailable ARIAS JESUS Attending Unavailable ARIAS JESUS Admitting Unavailable ANN MARIE ARIAS Referring Unavailable ANN MARIE, ARIAS Attending Unavailable JOHNSON, IRENA Referring Unavailable JOHNSON, IRENA Attending Unavailable JOHNSON, IRENA Admitting Unavailable RESEARCH, GENERIC Referring Unavailable ARIAS JESUS Referring Unavailable ANN MARIE ARIAS Referring Unavailable Allergies Allergy Classification Reported Allergen(s) Allergy Type Date of Onset Reaction(s) Facility (1 source) sulfamethoxazole / trimethoprim; Translations: [SULFAMETHOXAZOLE-TR IMETHOPRIM] Drug Allergy 5 AOF [facility] Repository Medications Current Medications Medication [...] 0 Active baclofen 20 mg oral tablet (6 sources) gamma-Aminobutyric Acid-ergic Agonist Start: 07-05-2023 take 20 mg by mouth once daily at bedtime Baclofen Active 20 MG PO Daily at bedtime July 05, 2023 12:00am calcium carbonate 1250 mg / cholecalciferol 125 unt oral tablet (7 sources) Vitamin D Start: 06-02-2023 take 1 [...] esomeprazole 40 mg delayed release oral capsule (19 sources) Proton Pump Inhibitor Start: 06-02-2023 Esomeprazole [...] 05/18/2023 Discontinued furosemide 40 mg oral tablet (16 sources) Loop Diuretic Start: 06-02-2023 take 1 [...] 05/10/2023 Active ibuprofen 800 mg oral tablet (7 sources) Nonsteroidal Anti-inflammatory Drug Start: 06-02-2023 take 800 mg by mouth three times daily Ibuprofen Active 800 MG PO Three times daily June 02, 2023 1:00am lansoprazole 30 mg delayed release oral capsule (6 sources) Proton Pump Inhibitor Start: 07-05-2023 take 30 mg by mouth twice daily Lansoprazole Active 30 MG PO Twice daily July 05, 2023 12:00am lisinopril 20 mg oral tablet (20 sources) Angiotensin Converting Enzyme Inhibitor Start: 09-19-2022 take 20 mg by mouth once daily in the morning Lisinopril Active 20 MG PO Every morning September 19, 2022 12:00am Multiple Vitamins-Minerals (Multi For Him) tablet (3 sources) Multiple Vitamins-Minerals (Multi For Him) tablet Daily. 0 Active Multivitamin (Daily Multi-Vitamin) tablet (7 sources) Start: 06-02-2023 take 1 tablet by mouth once daily Multivitamin (Daily Multi-Vitamin) tablet Active 1 TAB PO Daily June 02, 2023 1:00am Start: 06-02-2023 take 1 tablet by vlad th once daily Multivitamin (Daily Multi-Vitamin) tablet Active 1 TAB PO Daily June 02, 2023 12:00am ondansetron 4 mg oral tablet (12 sources) Serotonin-3 Receptor Antagonist Start: 07-05-2023 take 4 mg by mouth three times daily Ondansetron Hcl Active 4 MG PO Three times daily July 05, 2023 9:32am Start: 07-05-2023 End: 07-05-2023 take 4 mg by mouth once daily Ondansetron Hcl Disconti nued 4 MG PO Daily July 05, 2023 12:00am July 05, 2023 9:32am spironolactone 100 mg oral tablet (16 sources) Aldosterone Antagonist Start: 06-02-2023 take 1 [...] / oxyCODONE hydrochloride 5 mg oral tablet (6 sources) Opioid Agonist Start: 06-13-2023 End: 07-05-2023 take 1 tablet by mouth every six hours Oxycodone-Acetami nophen (Percocet) 5-325 mg tablet Discontinued 1 TAB PO Q6H 28 7 June 13, 2023 July 05, 2023 9:01am mgashcw-klfqxgthd-eltz 333-133-5 MG per tablet (1 source) End: 05-18-2023 calcium-magnesium -zinc 333-133-5 MG per tablet Take 1 tablet by mouth in the morning and 1 tablet at noon and 1 tablet in the evening. Take with meals. 0 05/18/2023 Discontinued hydroCHLOROthiazide 25 mg / triamterene 37.5 mg oral capsule (18 sources) Potassium-spari ng Diuretic, Thiazide Diuretic Start: 06-13-2023 End: 07-05-2023 Triamterene-[place] chlorothiazid Discontinued CAP June 13, 2023 1:00am [...] Discontinued metoprolol tartrate 25 mg oral tablet (14 sources) beta-Adrenergic Nikunj Start: 09-19-2022 End: 06-02-2023 [...] Onset: 3 Resolved: 3 11-17-2022 Chronic Hemorrhoids (6 sources) Internal hemorrhoids grade II; Translations: [Second degree hemorrhoids] 06-13-2023 Episodic Nausea and vomiting (16 sources) Nausea; Translations: [Nausea] Onset: 4 Episodic [...] Episodic Other disorders of stomach and duodenum (6 sources) Disorder of function of stomach; Translations: [...] not elsewhere classified Chronic Other liver diseases (13 sources) Cirrhosis of liver; Translations: [Unspecified cirrhosis [...] distension (gaseous); Translations: [Abdominal distension (gaseous)] Onset: 08-07-2023 Episodic Residual codes; unclassified (12 sources) Insomnia; Translations: [Insomnia, unspecified] Onset: 11-17-2022 11-17-2022 Episodic Residual codes; unclassified (3 sources) Early satiety; Translations: [Early satiety] Onset: 04-26-2023 Episodic Results Test Name Value Interpretation Reference Range Facility 36on 12-14-2023 36 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. [facility] 36 ----- Message from Serena Hazel MD sent at 12/14/2023 1:36 PM EDT ----- Petra, I sent over a prescription for his diuretics and recommended that they have repeat CMP next week. The order has been placed, can you please fax this to [facility] so that they can get them done next week? Thank you so much ----- Message ----- From: Rachel Doan MA Sent: 12/13/2023 1:35 PM EDT To: Gibson Hazel MD A new document has been added to this order with description CMP results [facility]. [facility] 36 Patient's saucedo d last week asking for increased prescription dose of Lasix 40 b.I.d. after his discharge from an outside facility where he was told to increase his diuretic dose. I asked them to have a CMP done to make sure that he did not have an PERLITA or electrolyte derangements with his higher dose and this was completed. His creatinine is near baseline and his sodium and potassium are within normal limits. I discussed the case with Dr. Johnson and we will increase his Aldactone to 200 mg daily in order to keep the 2.5 to 1 ratio of Aldactone to Lasix ( now on Lasix 80 and Aldactone 200). I asked his to repeat labs next week to ensure that he was handling this higher diuretic dose and she expressed understanding. Patient has a follow up appointment in hepatology Clinic on 12/27/2023 and we will assess his diuretics further at that time. [facility] Orders Onlyon 12-14-2023 Orders Only [id number] Ambrosio Blandon 1955 M Date Provider Department Center 12/14/202314300-TEEFRGIBSON HAZEL [facility] No family history on file [facility] Telephoneon 12-14-2023 Telephone [id number] Ambrosio Blandon 1955 M Date Provider Department Center 12/14/202369805-QJDVMGIBSON ESPOSITO [facility] No family history on file [facility] Orders Onlyon 12-13-2023 Orders Only [id number] Ambrosio Blandon 1955 M Date Provider Department Center 12/13/2023 [id number], HISTORICAL MP GI Medical [facility]avi No family history on file [facility] 36on 12-11-2023 36 Patient's repor ts that [...] an appointment in hepatology clinic on 12/27/2023. [facility] 36 of patient call s today stating that when they went for paracentesis at [place] last week - the patient was admitted. [...] clinic visit with Dr. Johnson on 12/27/2023. [facility] Orders Onlyon 12-11-2023 Orders Only [id number] Ambrosio Blandon 1955 M Date Provider Department Center 12/11/202302697-FEJJRGIBSON [facility] Medical Pavi No family history on file [facility] Telephoneon 12-11-2023 Telephone [id number] Ambrosio Blandon 1955 M Date Provider Department Center 12/11/202303742-CSXREGIBSON HAZEL [facility] Medical Pavi No family history on file [facility] Mayito 12-08-2023 L Specimen: [id number] Received: 12/11/23 Status: HUSAM Mirclarence Num: [id number] Spec Type: Cytology Subm Dr: Devyn Winter DO Tissues: A PLEURAL FLUID (PLEUR) Procedures: HE/2, Gross/Micro L4, Cyto Prepstain, PAPSTN Age/ Patient Sex Location Account Attending Physician Charles Blandon 68/M LABELL [id number] Devyn Winter DO SPEC NUM: [id number] RECD: 12/11/23 STATUS: HUSAM COFFEY NUM: [id number] WEN: 12/08/[address] [facility] [address]: Devyn Winter DO ENTERED: 12/11/[address]: Babs,Lab SPEC TYPE: Cytology DEPT: [facility] ENTERED BY: [id number] RECV BY: [id number] ORDERED: HE/2, Gross/Micro L4, Cyto Prepstain, PAPSTN ORDERED: HE/2, Gross/Micro L4, Cyto Prepstain, PAPSTN Pathological Diagnosis Right pleural fluid, cytology: -No evidence of malignant cell -Mostly are mesothelial cells, lymphocytes, and histiocytes and only rare PMN -Cell block section also showing similar findings Clinical Information R sided pleural effusion Gross Description Received fresh is 2000 ml yellow cloudy unfixed fluid for cytology said to have been obtained as pleural fluid. ThinPrep and cell block preparations are prepared for microscopic examination. (CC/nh) Microscopic Description Microscopic examinations are performed supporting the above interpretation Specimen: [id number] Received: 12/11/23 Status: SERAEmilie Coffey Num: [id number] Spec Type: Cytology Subm Dr: Devyn Winter DO Tissues: A PLEURAL FLUID (PLEUR) Procedures: HE/2, Gross/Micro L4, Cyto Prepstain, PAPSTN Patient: JamiaCharles [id number] (Continued) Specimen: [id number] Received: 12/11/23 (Continued) Signed (signature on file) Robert-Fabio Duque MD 12/14/23 1503 Specimen: [id number] Received: 12/11/23 Status: HUSAM Estuardo Num: [id number] Spec Type: Cytology Subm Dr: Devyn Winter DO Tissues: A PLEURAL FLUID (PLEUR) Procedures: HE/2, Gross/Micro L4, Cyto Prepstain, PAPSTN Patient: Charles Blandon [id number] (Continued) Specimen: [id number] Received: 12/11/23 (Continued) CPT Codes 42350 85061 Specimen: BC Received: 12/11/23 Status: HUSAM Coffey Num: [id number] Spec Type: Cytology Subm Dr: Devyn Winter DO Tissues: A PLEURAL FLUID (PLEUR) Procedures: HE/2, Gross/Micro L4, Cyto Prepstain, PAPSTN Patient: Charles Blandon [id number] (Continued) Signed (signature on file) Robert-Fabio Duque MD 12/14/23 1503 Normal [facility] 36on 12-01-[address] Hazel in clinic, order placed and faxed to [facility] at [phone] Normal [facility] 36 calls stating t hat patient is in need of an order for paracentesis. Order will need to be sent to [facility]. Normal [facility] Orders Onlyon 12-01-2023 Orders Only [id number] Ambrosio Blandon 1955 M Date Provider Department Center 12/01/202382875-UXSKIGIBSON HAZEL [facility] Medical [facility] No family history on file Normal [facility] HPon 11-27-2023 HP ----- ----- Attestation signed by rIena Johnson MD at 11/27/2023 10:41 AM I [...] tablet tablet 1 tablet. 06/02/23 Yes Historical ProviderMD famotidine (Pepcid) 40 mg tablet Take 1 tablet (40 mg) by mouth in the morning. Patient taking differently: Take 40 mg by mouth two times daily. 11/08/23 11/07/24 Yes Arias Jesus MD furosemide (Lasix) 40 mg tablet Take 40 mg by mouth in the morning. 06/02/23 Yes Historical ProviderMD lansoprazole (Prevacid) [address] capsule TAKE [...] PROT B12/Folate/Iron studies: No results found for: [id number] , FOLATE , IRON , TIBC , UIBC , IRONSAT , FERRITIN ASSESSMENT AND PLAN Charles Blandon is a 68 y.o. male who has a known past medical history significant for alcoholic liver cirrhosis, Recinos's esophagus and hepatic encephalopathy is scheduled today for an EGD for esophageal varices screening. Plan: Plan for EGD today for esophageal varices secondary to liver cirrhosis. Normal [facility] POCT GLUCOSE METER UNSOLICIT ED RESULTSon 11-27-2023 Glucose [Mass/Vol] 101 mg/dL Normal 70-105 [facility] Comment on above: Order Comment: Waive d Testing in the ED is performed under the ED CLIA certificate #[id number]. Result Comment: jhag eman Performed By: #### L [id number] #### [facility] ([facility]) [address] [place] [address] 36on 11-21-2023 36 Appeal submitted Normal [facility] Orders Onlyon 11-21-2023 Orders Only [id number] Ambrosio Blandon 1955 M Date Provider Department Center 11/21/2023 BROOKLYNN ZEPEDA MP [facility] No family history on file Normal [facility] Prep for Procedureon 024 Prep for Procedure [id number] Ambrosio Blandon 1955 M Date Provider Department Center 11/21/2023 IRENA SCHMIDT [facility] No family history on file Normal [facility] MR ABDOMEN W AND WO CONTRAST [...] signed: Adalid Montiel. 9 Invalid Interpretation Code [facility] Orders Onlyon 11-08-2023 Orders Only [id number] Ambrosio Blandon 1955 M Date Provider Department Center 11/08/2023 [id number], BROOKLYNN MP [facility] Medical [facility] No family history on file [facility] 36on 11-02-2023 36 Patient's carmen jolynn to verify that Dr. Jesus will now be prescribing the Famotidine and Baclofen because the previously prescribing physician no longer will now that he is a [facility] GI patient. The preferred pharmacy is [facility] in [place]. Please advise and these orders can then be pended. [facility] Orders Onlyon 11-02-2023 Orders Only [id number] Ambrosio Blandon 1955 M Date Provider Department Center 11/02/2023 [id number], HISTORICAL [facility] No family history on file [facility] 3610-26-2023 36 I called the patient and [...] MRI of his liver on the . [facility] Orders Onlyon 10-26-2023 Orders Only [id number] Ambrosio Blandon 1955 M Date Provider Department Center 10/26/202369144-EYPYYGIBSON ESPOSITO [facility] No family history on file [facility] Telephoneon 10-26-2023 Telephone [id number] Ambrosio Blandon 1955 M Date Provider Department Center 10/26/202380229-YEOOSGIBSON HAZEL [facility] No family history on file [facility] Orders Onlyon 10-24-2023 Orders Only [id number] Ambrosio Blandon 1955 M Date Provider Department Center 10/24/2023 [id number], HISTORICAL MP GI Medical [facility]avi No family history on file [facility] Orders Onlyon 10-20-2023 Orders Only [id number] Ambrosio Blandon emma 1955 M Date Provider Department Center 10/20/2023 Olinda-RUFINO MATHUR [facility] No family history on file [facility] 36on 10-18-2023 36 I called the patient [...] we can follow-up on his sodium level. [facility] 36 Patients called stating they were called [...] back from you to clarify some things. [facility] Orders Onlyon 10-18-2023 Orders Only [id number] Ambrosio Blandon 1955 M Date Provider Department Center 10/18/20232030-EKATERINA ALMODOVAR [facility] No family history on file Normal [facility] Telephoneon 10-18-2023 Telephone [id number] Ambrosio Blandon 1955 M Date Provider Department Center 10/18/202399145-LEKYBGIBSON HAZEL MP GI Medical Pavi No family history on file Normal [facility] Orders Onlyon 10-17-2023 Orders Only [id number] Ambrosio Blandon 1955 M Date Provider Department Center 10/17/202312870-GAJJJGIBSON HAZEL MP GI Medical [facility]avi No family history on file Normal [facility] Documentationon 10-16-2023 Documentation [id number] Ambrosio Blandon 1955 M Date Provider Department Center 10/16/2023 CARMELLA NICOLE [facility] Medical [facility] No family history on file Reason for Visit and Comments: Specialty Pharmacy Note: [facility] PAP [Other] Normal [facility] Prep for Procedureon 024 Prep for Procedure [id number] Ambrosio Blandon 1955 M Date Provider Department Center 10/16/2023 Vahid-IRENA JOHNSON [facility] No family history on file Normal [facility] BASIC METABOLIC PANELon 09-16 Anion gap [Moles/Vol] 14 mmol/L Normal 7-20 [facility] Comment on above: Performed By: #### L [id number] #### [facility] ([facility]) [address] [place] [address] Calcium [Mass/Vol] 9.1 mg/dL Normal 8.6-10.3 [facility] Comment on above: Performed By: #### L [id number] #### [facility] ([facility]) [address] [place] [address] Chloride [Moles/Vol] 96 mmol/L Low 98-107 [facility] Comment on above: Performed By: #### L [id number] #### [facility] ([facility]) [address] [place] [address] CO2 [Moles/Vol] 22 mmol/L Normal 21-31 [facility] Comment on above: Performed By: #### L [id number] #### [facility] ([facility]) [address] [place] [address] Creatinine [Mass/Vol] 1.00 mg/dL Normal 0.70-1.30 [facility] Comment on above: Performed By: #### L [id number] #### [facility] ([facility]) [address] [place] [address] GLOMERULAR FILTRATION RATE ML/MIN/1.73 SQ M.PREDICTED 81.0 mL/min/1.73m*2 Normal >60.0 [facility] Comment on above: Result Comment: The [facility]???s estimated glomerular filtration rate (eGFR) will [...] individuals. Performed By: #### L [id number] #### [facility] ([facility]) [address] [place] [address] Glucose [Mass/Vol] 108 mg/dL High 70-100 [facility] Comment on above: Performed By: #### L [id number] #### [facility] ([facility]) [address] [place] [address] Potassium [Moles/Vol] 4.8 mmol/L Normal 3.5-5.1 [facility] Comment on above: Performed By: #### L [id number] #### [facility] ([facility]) [address] [place] [address] Sodium [Moles/Vol] 127 mmol/L Low 136-145 [facility] Comment on above: Performed By: #### L [id number] #### [facility] ([facility]) [address] [place] [address] Urea nitrogen [Mass/Vol] 13 mg/dL Normal 7-25 [facility] Comment on above: Performed By: #### L [id number] #### [facility] ([facility]) [address] [place] [address] UREA NITROGEN/CREATININE (MASS RATIO) IN SER/PLAS 13.0 Normal [facility] Comment on above: Performed By: #### L [id number] #### [facility] ([facility]) [address] [place] [address] CBCon 10-13-2023 Erythrocyte distribution width (RBC) [Ratio] 14.2 % Normal 11.5-15.0 [facility] Comment on above: Performed By: #### L [id number] ####[facility] ([facility])[address] [place] [address] ERYTHROCYTE MEAN CORPUSCULAR HEMOGLOBIN CONCENTRATION (G/DL) BY AUTOMATED 34.5 g/dL Normal 32.0-35.0 [facility] Comment on above: Performed By: #### L [id number] ####[facility] ([facility])[address] [place] [address] Hematocrit (Bld) [Volume fraction] 38.0 % Low 39.0-55.0 [facility] Comment on above: Performed By: #### L [id number] ####[facility] ([facility])[address] [place] [address] Hemoglobin (Bld) [Mass/Vol] 13.1 g/dL Normal 13.0-17.0 [facility] Comment on above: Performed By: #### L [id number] ####[facility] ([facility])[address] [place] [address] MCH (RBC) [Entitic mass] 34.4 pg High 27.0-33.0 [facility] Comment on above: Performed By: #### L [id number] ####[facility] ([facility])[address] [place] [address] MCV (RBC) [Entitic vol] 99.7 fL High 82.0-98.0 [facility] Comment on above: Performed By: #### L [id number] ####[facility] ([facility])[address] [place] [address] PLATELETS (10*3/UL) IN BLOOD AUTOMATED COUNT 212 10*3/uL Normal 150-400 [facility] Comment on above: Performed By: #### L [id number] ####[facility] ([facility])[address] [place] [address] RBC (Bld) [#/Vol] 3.81 10*6/uL Low 4.20-5.70 [facility] Comment on above: Performed By: #### L [id number] ####[facility] ([facility])[address] [place] [address] WBC (Bld) [#/Vol] 6.20 10*3/uL Normal 4.00-10.60 [facility] Comment on above: Performed By: #### L [id number] ####[facility] ([facility])[address] [place] [address] HEPATIC FUNCTION PANELon Albumin [Mass/Vol] 3.4 g/dL Low 3.5-5.7 [facility] Comment on above: Performed By: #### L [id number] #### [facility] ([facility]) [address] [place] [address] ALP [Catalytic activity/Vol] 114 U/L High 34-104 [facility] Comment on above: Performed By: #### L [id number] #### [facility] ([facility]) [address] [place] [address] ALT [Catalytic activity/Vol] 23 U/L Normal 7-52 [facility] Comment on above: Performed By: #### L [id number] #### [facility] ([facility]) [address] [place] [address] AST [Catalytic activity/Vol] 48 U/L High 13-39 [facility] Comment on above: Performed By: #### L [id number] #### [facility] ([facility] [facility] [address] [place] [address] Bilirubin [Mass/Vol] 1.5 mg/dL High 0.3-1.0 [facility] Comment on above: Performed By: #### L AB20 #### [facility] ([facility]) [address] [place] [address] Magnesium [Mass/Vol] 0.5 mg/dL High 0-0.2 [facility] Comment on above: Performed By: #### L AB20 #### [facility] ([facility]) [address] [place] [address] Protein [Mass/Vol] 7.8 g/dL Normal 6.0-8.3 [facility] Comment on above: Performed By: #### L AB20 #### [facility] ([facility]) [address] [place] [address] Labon 10-13-2023 Lab [id number] Ambrosio Blandon 1955 M [facility] Provider Department [place] 10/13/2023 2244-[facility] MP LAB RESOURCE MP DRAW Medical Pavi No family history on file Normal [facility] Office [place] 10-13-2023 Follow-up visit [id number] Ambrosio Blandon 1955 M [facility] Provider Department [place] 10/13/2023 298-IRENA JOHSNON GI Medical Pavi No family history on file Level of Service:31560 [place] OFFICE/OUTPATIENT ESTABLISHED HIGH MDM 40 MIN () Reason for Visit and Comments: Cirrhosis [239] Ascites [295] Normal [facility] PROTIME-INRon 10-13-2023 INR IN PPP BY COAGULATION ASSAY 1.17 High 0.90-1.10 [facility] Comment on above: Result Comment: ACCC [...] 1995;108:231S-246S. Performed By: #### L [id number] #### [facility] ([email or web address]) [address] [place] [address] PROTHROMBIN TIME (PT) IN PPP BY COAGULATION ASSAY 14.9 Seconds High 12.3-14.8 [facility] Comment on above: Performed By: #### L AB320 #### [facility] ([facility]) [address] [place] [address] Orders Onlyon 10-06-2023 Orders Only [id number] Ambrosio Blandon 1955 M Date Provider Department Center 10/06/2023 [id number], HISTORICAL MP GI Medical Pavi No family history on file Normal [facility] [place] 10-03-2023 L Specimen: [id number] Received: 10/04/23 Status: HUSAM Coffey Num: [id number] Spec Type: Cytology Subm Dr: Arias Jesus MD Tissues: A ASCITES (ASC) Procedures: HE/2, Gross/Micro L4, Cyto Prepstain, PAPSTN Age/ Patient Sex Location Account Attending Physician Charles Blandon 68/M [place] [id number] Ward Stern MD SPEC NUM: [id number] RECD: 10/04/23 STATUS: HUSMA COFFEY NUM: [id number] WEN: 10/03/[address]: Arias Jesus MD ENTERED: 10/04/[address] [facility] [address]: Babs,Lab Ward Stern MD SPEC TYPE: Cytology DEPT: [facility] ENTERED BY: [id number] RECV BY: [id number] ORDERED: HE/2, Gross/Micro L4, Cyto Prepstain, PAPSTN ORDERED: HE/2, Gross/Micro L4, Cyto Prepstain, PAPSTN Pathological Diagnosis Ascites fluid cytology: Atypical cells noted. Clinical Information cirrhosis, liver lesion Gross Description Received is 1000 ml yellow cloudy unfixed fluid for cytology said to have been obtained as abdominal ascites fluid. ThinPrep and cell block preparations are prepared for microscopic examination. (AL/ut) CPT Codes 67527 Specimen: [id number] Received: 10/04/23 Status: HUSAM Coffey Num: [id number] Spec Type: Cytology Subm Dr: Arias Jesus MD Tissues: A ASCITES (ASC) Procedures: HE/2, Gross/Micro L4, Cyto Prepstain, PAPSTN Patient: Charles Blandon [id number] (Continued) Signed (signature on file) Linette Bean MD 10/05/23 1340 Normal [facility] Orders Onlyon 09-27-2023 Orders Only [id number] Ambrosio Blandon 1955 M Date Provider Department Center 09/27/2023 204-HARSHA CONNER [facility] GI [facility] No family history on file Normal [facility] CREATININE, SERUMon 09-25-19 24 Creatinine [Mass/Vol] 1.06 mg/dL Normal 0.70-1.30 [facility] Comment on above: Performed By: #### L AB383 #### [facility] ([email or web address]) [address] [place] [address] GLOMERULAR FILTRATION RATE ML/MIN/1.73 SQ M.PREDICTED 75.5 mL/min/1.73m*2 Normal >60.0 [facility] Comment on above: Result Comment: [facility]???s estimated glomerular filtration rate (eGFR) will [...] individuals. Performed By: #### L AB383 #### [facility] ([email or web address]) [address] [place] [address] CTA ABDOMEN PELVIS W IV CONT Hailey 09-25-2023 CTA ABDOMEN PELVIS W IV CONTRAST [...] Gan MD. Not Vldtd Invalid Interpretation Code [facility] Lab[place] 09-25-2023 Lab [id number] Jamia,Ambrosio emma 1955 M Date Provider Department Center 09/25/2023 2245-[facility] OPD LAB RESOURCE [facility] OPD SC Medical C No family history on file Normal [facility] Orders Onlyon 09-23-2023 Orders Only [id number] Jamia,Ambrosio emma 1955 M Date Provider Department Center 09/23/2023 204-HARSHA CONNER [facility] GI [facility] No family history on file Normal [facility] Orders Onlyon 09-15-2023 Orders Only [id number] Jamia,Ambrosio emma 1955 M Date Provider Department Center 09/15/2023 [id number]-DTIUNOBROOKLYNN SINGH MP GI Medical Pavi No family history on file Normal [facility] Orders Onlyon 09-14-2023 Orders Only [id number] Jamia,Ambrosio emma 1955 M Date Provider Department Center 09/14/2023 52573-AECNOXBROOKLYNN SINGH MP GI Medical Pavi No family history on file Normal [facility] Orders Onlyon 08-28-2023 Orders Only [id number] Jamia,Ambrosio emma 1955 M Date Provider Department Center 08/28/2023 [id number], HISTORICAL MP GI Medical Pavi No family history on file Normal [facility] Orders Onlyon 08-24-2023 Orders Only [id number] Jamia,Ambrosio emma 1955 M Date Provider Department Center 08/24/2023 [id number], HISTORICAL MP GI Medical Pavi No family history on file Normal [facility] 08-09-2023 29 Addended by: ARIAS JESUS on: 08/09/2023 12:50 PM Modules accepted: Orders Normal [facility] Orders Onlyon 08-09-2023 Orders Only [id number] Jamia,Ambrosio emma 1955 M Date Provider Department Center 08/09/2023 [id number] SANTIZO GI Medical Pavi No family history on file Normal [facility] Office Vis[place] 08-07-2023 Follow-up visit [id number] Ambrosio Blandon 1955 M Date Provider Department Center 08/07/2023 ARIAS DOLL GI Medical Pavi No family history on file Level of Service:49417 [place] OFFICE/OUTPATIENT NEW LOW MDM 30 MINUTES (GC) Reason for Visit and Comments: New Patient [632] Weight Loss [303949] - 30 pound weight loss since . Pt recently had surgery for 3 polyps removed and 1 hemorrhoid removal. Dyskenisia of esophgaus [Other] Nausea [70] Vomiting [120] - Pt has a urge to but does not vomit. Normal [facility] [place] 06-13-2023 L Specimen: [id number] Received: 06/14/23 Status: HUSAM Coffey Num: [id number] Spec Type: Surgical Subm Dr: Janneth Villegas DO Tissues: A Hemorrhoids (HEMORRHOID 9:00) Procedures: HE, Gross/Micro L3 Age/ Patient Sex Location Account Attending Physician Charles Blandon 67/M [place] [id number] Janneth Villegas DO SPEC NUM: [id number] RECD: 06/14/23 STATUS: HUSAM COFFEY NUM: [id number] WEN: 06/13/[address]: Janneth Villegas DO ENTERED: 06/14/[address] [facility] [address]: SPEC TYPE: Surgical DEPT: S ORDERED: [...] cut surfaces with diffusely dilated blood-filled spaces. Computerized Mill Recorder sections are submitted in 1 cassette as follows: A1 - 1 cordage sales representative section from each fragment to demonstrate change in mucosal types of the largest fragment CPT Codes 55513 Specimen: [id number] Received: 06/14/23 Status: HUSAM Coffey Num: [id number] Spec Type: Surgical Subm Dr: Janneth Villegas DO Tissues: A Hemorrhoids (HEMORRHOID 9:00) Procedures: Clark BARBOSA/Andi L3 Patient: Charles Blandon [id number] (Continued) Signed (signature on file) Linette Bean MD 06/27/23 2239 Normal [facility] Automated basophil %Ordered By: Janneth Villegas on 06-02-2023 Basophils/100 WBC (Bld) 0.7 % Normal . [facility] Comment on above: Performed By: #### B MP, CBC #### [facility] [address] [place] [address] Automated basophil countOrde red By: Janneth Villegas on 06-02-2023 Basophils (Bld) [#/Vol] 0.0 10*3/uL Normal 0.0-0.2 [facility] Comment on above: Result Comment: PERF ORMED BY: [place] [address] PATHOLOGIST SALES TRAINING MANAGER CLARK LEARY M.D. Performed By: #### B MP, CBC #### [address] Automated blood monocyte cou ntOrdered By: Janneth Villegas on 06-02-2023 Monocytes (Bld) [#/Vol] 0.9 10*3/uL High 0.0-0.8 [facility] Comment on above: Performed By: #### B MP, CBC #### [facility] [address] [place] [address] Automated eosinophil %Ordere d By: Janneth Villegas on 06-02-2023 Eosinophils/100 WBC (Bld) 1.9 % Normal . [facility] Comment on above: Performed By: #### B MP, CBC #### [facility] [address] [place] [address] Automated eosinophil countOr dered By: Janneth Villegas on 06-02-2023 Eosinophils (Bld) [#/Vol] 0.1 10*3/uL Normal 0.0-0.45 [facility] Comment on above: Performed By: #### B MP, CBC #### [facility] [address] Automated monocyte %Ordered By: Janneth Villegas on 06-02-2023 Monocytes/100 WBC (Bld) 15.7 % Normal . [facility] Comment on above: Performed By: #### B MP, CBC #### [facility] [address] Automated neutrophil %Ordere d By: Janneth Villegas on 06-02-2023 Neutrophils/100 WBC (Bld) 68.5 % Normal . [facility] Comment on above: Performed By: #### B MP, CBC #### [address] Basic Metabolic Panelon 05-18 GFR/1.73 sq M.predicted MDRD (S/P/Bld) [Vol rate/Area] mL/min/{1.73_m2} Normal [facility] Comment on above: Performed By: #### B MP, CBC #### [address] Calcium [Mass/volume] in Ser um or PlasmaOrdered By: Janneth Villegas on 06-02-2023 Calcium [Mass/Vol] 8.6 mg/dL Normal 8.6-10.3 [facility] Comment on above: Result Comment: PERF ORMED BY: [place] [address] PATHOLOGIST SALES TRAINING MANAGER CLARK LEARY M.D. Performed By: #### B MP, CBC #### [address] Carbon dioxide, total [Moles /volume] in Serum or PlasmaOrdered By: Janneth Villegas on 06-02-2023 CO2 [Moles/Vol] 27.3 mmol/L Normal 21.0-31.0 [facility] Comment on above: Performed By: #### B MP, CBC #### [place] [address] [place] Chloride [Moles/volume] in S mateo or PlasmaOrdered By: Janneth Villegas on 06-02-2023 Chloride [Moles/Vol] 96 mmol/L Low 98-107 [facility] Comment on above: Performed By: #### B MP, CBC #### [facility] [address] [place] [address] Complete Blood Count Auto Di ffon 06-02-2023 Mean Corpuscular HGB Conc 35.2 g/dL Normal 32.5-35.6 [facility] Comment on above: Performed By: #### B MP, CBC #### [facility] [address] NRBC% 0.1 /100{WBC} Normal 0-0.5 [facility] Comment on above: Performed By: #### B MP, CBC #### [address] Creatinine [Mass/volume] in Serum or PlasmaOrdered By: Janneth Villegas on 06-02-2023 Creatinine [Mass/Vol] 1.07 mg/dL Normal 0.70-1.30 [facility] Comment on above: Performed By: #### B MP, CBC #### [address] ECG 12 lead ECGon 06-02-2023 ECG 12 lead ECG [facility] [place] [address] [place] [address] Electrocardiograph Report Signed Patient: Charles Blandon MR#: [id number] 66 : 1955 Acct:[id number] Age/Sex: 67 / M ADM Date: 06/02/23 Loc: Room: Type: [facility] Attending Dr: Janneth Villegas DO Ordering Provider: [...] previous ECGs available Confirmed by Gurpreet Dyson ([id number]) on 06/02/2023 6:21:10 PM Referred By: DANNY VILLEGAS Electronically Signed By:Gurpreet Dyson Transcribed By: MUS Signed By Gurpreet Dyson MD 06/02/23 1821 Normal [facility] Erythrocyte distribution wid th [Ratio] by Automated countOrdered By: Janneth Villegas on 06-02-2023 Erythrocyte distribution width (RBC) [Ratio] 13.8 % Normal 12.0-14.8 [facility] Comment on above: Performed By: #### B MP, CBC #### [address] Erythrocytes [#/volume] in B lood by Automated countOrdered By: Janneth Villegas on 06-02-2023 RBC (Bld) [#/Vol] 3.45 10*6/uL Low 3.90-5.60 [facility] Comment on above: Performed By: #### B MP, CBC #### [place] [address] [place] Glucose [Mass/volume] in Ser um or PlasmaOrdered By: Janneth Villegas on 06-02-2023 Glucose [Mass/Vol] 132 mg/dL High 70-100 [facility] Comment on above: ADA recommended refe rence rangeRandom Glucose Reference Range is dependent on time and content of last meal. Glucose of more than 200 mg/dL in a nonstressed, ambulatory subject supports the diagnosis of Diabetes Mellitus. Result Comment: Sylvester om Glucose Reference Range is dependent on time and content of last meal. Glucose of more than 200 mg/dL in a nonstressed, ambulatory subject supports the diagnosis of Diabetes Mellitus. ADA recommended reference range Performed By: #### B MP, CBC #### [facility] [address] [place] [address] [place] Hematocrit [Volume Fraction] of Blood by Automated countOrdered By: Janneth Villegas on 06-02-2023 Hematocrit (Bld) [Volume fraction] 35.5 % Low 38.8-50.0 [facility] Comment on above: Performed By: #### B MP, CBC #### [address] Hemoglobin [Mass/volume] in BloodOrdered By: Janneth Villegas on 06-02-2023 Hemoglobin (Bld) [Mass/Vol] 12.5 g/dL Low 13.0-17.0 [facility] Comment on above: Performed By: #### B MP, CBC #### [address] Leukocytes [#/volume] correc jamila for nucleated erythrocytes in Blood by Automated counOrdered By: Janneth Villegas on 06-02-2023 WBC corrected for nucl RBC Auto (Bld) [#/Vol] 5.7 10*3/uL 4.1-10.5 [facility] Leukocytes [#/volume] in Blo od by Automated countOrdered By: Janneth Villegas on 06-02-2023 WBC (Bld) [#/Vol] 5.7 10*3/uL Normal 4.1-10.5 [facility] Comment on above: Performed By: #### B MP, CBC #### [place] [address] [place] Lymphocytes [#/volume] in Bl ood by Automated countOrdered By: Janneth Villegas on 06-02-2023 Lymphocytes (Bld) [#/Vol] 0.7 10*3/uL Low 1.00-4.8 [facility] Comment on above: Performed By: #### B MP, CBC #### [address] Lymphocytes/100 leukocytes i n Blood by Automated countOrdered By: Janneth Villegas on 06-02-2023 Lymphocytes/100 WBC (Bld) 13.2 % Normal . [facility] Comment on above: Performed By: #### B MP, CBC #### [facility] [address] [place] [address] MCH [Entitic mass] by Automa jamila countOrdered By: Janneth Villegas on 06-02-2023 MCH (RBC) [Entitic mass] 36.2 pg High 27.5-35.2 [facility] Comment on above: Performed By: #### B MP, CBC #### [facility] [address] [place] [address] MCHC Auto (RBC) [Mass/Vol]Or dered By: Janneth Villegas on 06-02-2023 MCHC (RBC) [Mass/Vol] 35.2 g/dL 32.5-35.6 [facility] MCV [Entitic volume] by Auto mated countOrdered By: Janneth Villegas on 06-02-2023 MCV (RBC) [Entitic vol] 102.9 fL High 83.5-101 [facility] Comment on above: Performed By: #### B BRADLEY, CBC #### [facility] [address] [place] [address] Neutrophils [#/volume] in Bl ood by Automated countOrdered By: Janneth Villegas on 06-02-2023 Neutrophils (Bld) [#/Vol] 3.9 10*3/uL Normal 1.8-7.7 [facility] Comment on above: Performed By: #### B BRADLEY, CBC #### [facility] [address] [place] [address] No Panel InformationOrdered By: Janneth Villegas on 06-02-2023 Estimated GFR (CKD-EPI) > 60.0 mL/Min [facility] Creatinine Clearance (Chem N/A [facility] Nucleated erythrocytes [Pres ence] in Blood by Automated countOrdered By: Janneth Villegas on 06-02-2023 Nucleated RBC Auto Ql (Bld) 0.1 /100{WBC} 0-0.5 [facility] Platelet mean volume [Entiti c volume] in Blood by Automated countOrdered By: Janneth Villegas on 06-02-2023 Platelet mean volume (Bld) [Entitic vol] 8.1 fL Normal 6.6-10.1 [facility] Comment on above: Performed By: #### B MP, CBC #### [address] Platelets [#/volume] in Bloo d by Automated countOrdered By: Janneth Villegas on 06-02-2023 Platelets (Bld) [#/Vol] 153 10*3/uL Normal 150-450 [facility] Comment on above: Performed By: #### B MP, CBC #### [facility] [address] [place] [address] [place] Potassium [Moles/volume] in Serum or PlasmaOrdered By: Janneth Villegas on 06-02-2023 Potassium [Moles/Vol] 4.8 mmol/L Normal 3.5-5.1 [facility] Comment on above: Performed By: #### B MP, CBC #### [address] Serum or plasma anion gap de terminationOrdered By: Janneth Villegas on 06-02-2023 Anion gap [Moles/Vol] 13.5 mmol/L Normal 6.0-15.0 [facility] Comment on above: Performed By: #### B MP, CBC #### [facility] [address] [place] [address] [place] Sodium [Moles/volume] in Ser um or PlasmaOrdered By: Janneth Villegas on 06-02-2023 Sodium [Moles/Vol] 132 mmol/L Low 136-145 [facility] Comment on above: Performed By: #### B MP, CBC #### [place] [address] [place] Urea nitrogen [Mass/volume] in Serum or PlasmaOrdered By: Janneth Villegas on 06-02-2023 Urea nitrogen [Mass/Vol] 12 mg/dL Normal 7-25 [facility] Comment on above: Performed By: #### B MP, CBC #### [facility] [address] gastric emptying studyon 04-26-2023 UT gastric emptying study [facility] [place] [address] [place] [address] Nuclear Medicine Report Signed Patient: Charles Blandon MR#: [id number] 66 : 1955 Acct:[id number] Age/Sex: 67 / M ADM Date: 04/26/23 Loc: [place] Room: Type: [facility] Attending Dr: Lorna Ortega 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 UT/UT gastric emptying study IMPRESSION: NO SCINTIGRAPHIC EVIDENCE OF GASTROPARESIS. Impression dictated by: Morales Alvarez Jr., D.O.04/26/2023 10:18 AM Dictation Location: [place] [address] Transcribed By: [facility] 04/26/23 1018 Dictated By: Morales Alvarez Jr, DO 04/26/23 1017 Signed By: 04/26/23 1018 Normal [facility] Albumin [Mass/volume] in Ser um or Plasma by Bromocresol green (BCG) dye binding methoOrdered By: Lorna Ortega on 04-12-2023 Albumin BCG dye [Mass/Vol] 3.0 g/dL 3.5-5.7 [facility] Bilirubin.total [Mass/volume ] in Serum or PlasmaOrdered By: Lorna Ortega on 04-12-2023 Bilirubin [Mass/Vol] 1.3 mg/dL High 0.3-1.0 [facility] Comment on above: Samples from [...] Bilirubin. Performed By: #### C MP #### [facility] [address] [place] [id number] [facility] Calcium [Mass/volume] in Ser um or PlasmaOrdered By: Lorna Ortega on 04-12-2023 Calcium [Mass/Vol] 8.3 mg/dL Low 8.6-10.3 [facility] Comment on above: Order Comment: Reaso n for Exam Cirrhosis of liver Performed By: #### C MP #### [facility] [address] [place] [id number] [facility] Carbon dioxide, total [Moles /volume] in Serum or PlasmaOrdered By: Lorna Ortega on 04-12-2023 CO2 [Moles/Vol] 27.3 mmol/L Normal 21.0-31.0 [facility] Comment on above: Order Comment: Reaso n for Exam Cirrhosis of liver Performed By: #### C MP #### [facility] [address] [place], [place] [id number] [facility] Comprehensive Metabolic Pane mayito 04-12-2023 Albumin [Mass/Vol] 3.298578 g/dL Low 3.5-5.7 g/dL LOC&ALL Other Bilirubin [Mass/Vol] 1.9044260 mg/dL High 0.3- 1.0 mg/dL LOC&ALL Other Calcium [Mass/Vol] 8.0643895 mg/dL Low 8.6-10 .3 mg/dL LOC&ALL Other CO2 [Moles/Vol] 27.10761326 mmol/L Normal 21.0-3 1.0 mmol/L LOC&ALL Other Creatinine [Mass/Vol] 0.86400272 mg/dL Normal 0. 70-1.30 mg/dL LOC&ALL Other Potassium [Moles/Vol] 5.56448197 mmol/L Normal 3 .5-5.1 mmol/L LOC&ALL Other Protein [Mass/Vol] 6.106598 g/dL Low 6.4-8.9 g/dL LOC&ALL Other Comprehensive Metabolic Panel 3.3 g/dL LOC&ALL Other Albumin [Mass/Vol] 3.0 g/dL Low 3.5-5.7 The On license of [facility] Comment on above: Order Comment: Reaso n for Exam Cirrhosis of liver Performed By: #### C MP #### [address] GFR/1.73 sq M.predicted MDRD (S/P/Bld) [Vol rate/Area] mL/min/{1.73_m2} Normal [facility] treadalong Other Comment on above: Order Comment: Reaso n for Exam Cirrhosis of liver Performed By: #### C MP #### [facility] [address] [place] [address] Comprehensive Metabolic Pane lOrdered By: Lorna Ortega on 04-12-2023 Albumin/Globulin [Mass ratio] 0.9 {ratio} Normal [facility] Comment on above: Order Comment: Reaso n for Exam Cirrhosis of liver Performed By: #### C MP #### [facility] [address] [place] [address] ALP [Catalytic activity/Vol] 158 U/L High 34-104 [facility] Comment on above: Order Comment: Reaso n for Exam Cirrhosis of liver Result Comment: PERF ORMED BY: [address] [place] [address] PATHOLOGIST SALES TRAINING MANAGER CLARK LEARY M.D. Performed By: #### C MP #### [facility] [address] [place] [id number] [place] ALT [Catalytic activity/Vol] 35 U/L Normal 7-52 [facility] Comment on above: Order Comment: Reaso n for Exam Cirrhosis of liver Performed By: #### C MP #### [facility] [address] [place] [address] [place] AST [Catalytic activity/Vol] 76 U/L High 13-39 [facility] Comment on above: Order Comment: Reaso n for Exam Cirrhosis of liver Performed By: #### C MP #### [facility] [address] [place] [id number] [place] Chloride [Moles/Vol] 95 mmol/L Low 98-107 [facility] Comment on above: Order Comment: Reaso n for Exam Cirrhosis of liver Performed By: #### C MP #### [facility] [address] [place] [id number] [place] Glucose [Mass/Vol] 94 mg/dL Normal 70-100 [facility] Comment on above: ADA recommended refe rence rangeRandom Glucose Reference Range is dependent on time and content of last meal. Glucose of more than 200 mg/dL in a nonstressed, ambulatory subject supports the diagnosis of Diabetes Mellitus. Order Comment: Reaso n for Exam Cirrhosis of liver Result Comment: Sylvester om Glucose Reference Range is dependent on time and content of last meal. Glucose of more than 200 mg/dL in a nonstressed, ambulatory subject supports the diagnosis of Diabetes Mellitus. ADA recommended reference range Performed By: #### C MP #### [facility] [address] [place] [id number] [place] Sodium [Moles/Vol] 127 mmol/L Low 136-145 [facility] Comment on above: Order Comment: Reaso n for Exam Cirrhosis of liver Performed By: #### C MP #### [facility] [address] [place] [id number] [place] Urea nitrogen [Mass/Vol] 9 mg/dL Normal 7-25 [facility] Comment on above: Order Comment: Reaso n for Exam Cirrhosis of liver Performed By: #### C MP #### [facility] [address] Creatinine [Mass/volume] in Serum or PlasmaOrdered By: Lorna Ortega on 04-12-2023 Creatinine [Mass/Vol] 0.81 mg/dL Normal 0.70-1.30 [facility] Comment on above: Order Comment: Reaso n for Exam Cirrhosis of liver Performed By: #### C MP #### [facility] [address] No Panel InformationOrdered By: Lorna Ortega on 04-12-2023 Estimated GFR (CKD-EPI) > 60.0 mL/Min [facility] Creatinine Clearance (Chem N/A [facility] Potassium [Moles/volume] in Serum or PlasmaOrdered By: Lorna Ortega on 04-12-2023 Potassium [Moles/Vol] 5.1 mmol/L Normal 3.5-5.1 [facility] Comment on above: Order Comment: Reaso n for Exam Cirrhosis of liver Performed By: #### C MP #### [address] Protein [Mass/volume] in Ser um or PlasmaOrdered By: Lorna Ortega on 04-12-2023 Protein [Mass/Vol] 6.3 g/dL Low 6.4-8.9 [facility] Comment on above: Order Comment: Reaso n for Exam Cirrhosis of liver Performed By: #### C MP #### [address] Serum globulin measurement b y calculation (mass/volume)Ordered By: Lorna Ortega on 04-12-2023 Globulin (S) [Mass/Vol] 3.3 g/dL Normal [facility] Comment on above: Order Comment: Reaso n for Exam Cirrhosis of liver Performed By: #### C MP #### [address] Serum or plasma anion gap de terminationOrdered By: Lorna Ortega on 04-12-2023 Anion gap [Moles/Vol] 9.8 mmol/L Normal 6.0-15.0 [facility] Comment on above: Order Comment: Reaso n for Exam Cirrhosis of liver Performed By: #### C #### [facility] [address] XR RIBS 2 VIEWS LEFT WITH [...] muscle IgG Qn (S) 8 Units 0-19 [facility] Comment on above: Negative 0 - 19 Weak positive 20 - 30 Moderate to strong positive >30 Actin Antibodies are found in 52-85% of patients with autoimmune hepatitis or chronic active hepatitis and in 22% of patients with primary biliary cirrhosis. Alanine aminotransferase [En zymatic activity/volume] in Serum or PlasmaOrdered By: Lex Carroll on 09-21-2022 ALT [Catalytic activity/Vol] 30 U/L 7-52 [facility] Albumin [Mass/volume] in Ser um or Plasma by Bromocresol green (BCG) dye binding methoOrdered By: Lex Carroll on 09-21-2022 Albumin BCG dye [Mass/Vol] 3.6 g/dL 3.5-5.7 [facility] Alkaline phosphatase [Enzyma tic activity/volume] in Serum or PlasmaOrdered By: eLx Carroll on 09-21-2022 ALP [Catalytic activity/Vol] 96 U/L 34-104 [facility] Aspartate aminotransferase [ Enzymatic activity/volume] in Serum or PlasmaOrdered By: Lex Carroll on 09-21-2022 AST [Catalytic activity/Vol] 55 U/L 13-39 [facility] Basophils Auto (Bld) [#/Vol] Ordered By: Lex Carroll on 09-21-2022 Basophils (Bld) [#/Vol] 0.0 10*3/uL 0.0-0.2 [facility] Basophils/100 WBC Auto (Bld) Ordered By: Lex Carroll on 09-21-2022 Basophils/100 WBC (Bld) 0.9 % . [facility] Bilirubin.total [Mass/volume ] in Serum or PlasmaOrdered By: Lex Carroll on 09-21-2022 Bilirubin [Mass/Vol] 0.9 mg/dL 0.3-1.0 [facility] Calcium [Mass/volume] in Ser um or PlasmaOrdered By: Lex Carroll on 09-21-2022 Calcium [Mass/Vol] 8.7 mg/dL 8.6-10.3 [facility] Carbon dioxide, total [Moles /volume] in Serum or PlasmaOrdered By: Lex Carroll on 09-21-2022 CO2 [Moles/Vol] 26.9 mmol/L 21.0-31.0 [facility] Chloride [Moles/volume] in S mateo or PlasmaOrdered By: Lex Carroll on 09-21-2022 Chloride [Moles/Vol] 108 mmol/L 98-107 [facility] Cholesterol [Mass/volume] in Serum or PlasmaOrdered By: Lex Carroll on 09-21-2022 Cholesterol [Mass/Vol] 175 mg/dL 140-200 [facility] Comment on above: Chol less than 200 m g/dl low riskChol 201-239 mg/dl borderline riskChol 240 mg/dl and greater high risk Cholesterol in LDL Calc [Mas s/Vol]Ordered By: Lex Carroll on 09-21-2022 Cholesterol in LDL [Mass/Vol] 94 mg/dL 0-100 [facility] Comment on above: LDL ATP III CLASSIFI CATIONLDL less than 100 mg/dL OptimalLDL 100-129 mg/dL Near or above optimalLDL 130-159 mg/dL Borderline highLDL 160-189 mg/dL HighLDL greater than 189 mg/dL Very high Cholesterol in VLDL Calc [Ma ss/Vol]Ordered By: Lex Carroll on 09-21-2022 Cholesterol in VLDL [Mass/Vol] 21 mg/dL [facility] Creatinine [Mass/volume] in Serum or PlasmaOrdered By: Lex Carroll on 09-21-2022 Creatinine [Mass/Vol] 0.90 mg/dL 0.70-1.30 [facility] Eosinophils Auto (Bld) [#/Vo l]Ordered By: Lex Carroll on 09-21-2022 Eosinophils (Bld) [#/Vol] 0.2 10*3/uL 0.0-0.45 [facility] Eosinophils/100 WBC Auto (Bl d)Ordered By: Lex Carroll on 09-21-2022 Eosinophils/100 WBC (Bld) 3.6 % . [facility] Erythrocyte distribution wid th Auto (RBC) [Ratio]Ordered By: Lex Carroll on 09-21-2022 Erythrocyte distribution width (RBC) [Ratio] 14.2 % 12.0-14.8 [facility] Globulin Calc (S) [Mass/Vol] Ordered By: Lex Carroll on 09-21-2022 Globulin (S) [Mass/Vol] 2.8 g/dL [facility] Glucose [Mass/volume] in Ser um or PlasmaOrdered By: Lex Carroll on 09-21-2022 Glucose [Mass/Vol] 123 mg/dL 70-100 [facility] Comment on above: ADA recommended refe rence rangeRandom Glucose Reference Range is dependent on time and content of last meal. Glucose of more than 200 mg/dL in a nonstressed, ambulatory subject supports the diagnosis of Diabetes Mellitus. Hematocrit Auto (Bld) [Volum e fraction]Ordered By: Lex Carroll on 09-21-2022 Hematocrit (Bld) [Volume fraction] 37.5 % 38.8-50.0 [facility] Hemoglobin [Mass/volume] in BloodOrdered By: Lex Carroll on 09-21-2022 Hemoglobin (Bld) [Mass/Vol] 12.9 g/dL 13.0-17.0 [facility] Hepatitis B virus surface Ag [Presence] in Serum or Plasma by ImmunoassayOrdered By: Lex Carroll on 09-21-2022 HBV surface Ag IA Ql Negative Negative [facility] Hepatitis C virus IgG Ab [Pr esence] in Serum or Plasma by ImmunoassayOrdered By: Lex Carroll on 09-21-2022 HCV IgG IA Ql Non-Reactive Non Reactive [facility] Laboratory - CoagulationOrde red By: Lex Carroll on 09-21-2022 PT Coag (PPP) [Time] 13.0 s 9.0-12.9 [facility] Leukocytes [#/volume] correc jamila for nucleated erythrocytes in Blood by Automated counOrdered By: Lex Carroll on 09-21-2022 WBC corrected for nucl RBC Auto (Bld) [#/Vol] 4.2 10*3/uL 4.1-10.5 [facility] Lymphocytes Auto (Bld) [#/Vo l]Ordered By: Lex Carroll on 09-21-2022 Lymphocytes (Bld) [#/Vol] 1.1 10*3/uL 1.00-4.8 [facility] Lymphocytes/100 WBC Auto (Bl d)Ordered By: Lex Carroll on 09-21-2022 Lymphocytes/100 WBC (Bld) 27.1 % . [facility] MCH Auto (RBC) [Entitic mass ]Ordered By: Lex Carroll on 09-21-2022 MCH (RBC) [Entitic mass] 35.0 pg 27.5-35.2 [facility] MCHC Auto (RBC) [Mass/Vol]Or dered By: Lex Carroll on 09-21-2022 MCHC (RBC) [Mass/Vol] 34.4 g/dL 32.5-35.6 [facility] MCV Auto (RBC) [Entitic vol] Ordered By: Lex Carroll on 09-21-2022 MCV (RBC) [Entitic vol] 101.9 fL 83.5-101 [facility] Monocytes Auto (Bld) [#/Vol] Ordered By: Lex Carroll on 09-21-2022 Monocytes (Bld) [#/Vol] 0.5 10*3/uL 0.0-0.8 [facility] Monocytes/100 WBC Auto (Bld) Ordered By: Lex Carroll on 09-21-2022 Monocytes/100 WBC (Bld) 11.3 % . [facility] Neutrophils Auto (Bld) [#/Vo l]Ordered By: Lex Carroll on 09-21-2022 Neutrophils (Bld) [#/Vol] 2.4 10*3/uL 1.8-7.7 [facility] Neutrophils/100 WBC Auto (Bl d)Ordered By: Lex Carroll on 09-21-2022 Neutrophils/100 WBC (Bld) 57.1 % . [facility] No Panel InformationOrdered By: Lex Carroll on 09-21-2022 Estimated GFR (CKD-EPI) > 60.0 mL/Min [facility] Hepatitis B Core Total Antibody Negative Negative [facility] Comment on above: Performed at: [address] [id number] Director: John Tnag PhD, Phone: [phone] Hepatitis C Interpretation See comment . [facility] Comment on above: Not infected with HC V unless early or acute infection issuspected (which may be delayed in an immunocompromisedindividual), or other evidence exists to indicate HCVinfection. Hepatitis C RNA Quantitative N/A [facility] Creatinine Clearance (Chem 88.23 [facility] Nucleated erythrocytes [Pres ence] in Blood by Automated countOrdered By: Lex Carroll on 09-21-2022 Nucleated RBC Auto Ql (Bld) 0.2 /100{WBC} 0-0.5 [facility] Platelet mean volume Auto (B ld) [Entitic vol]Ordered By: Lex Carroll on 09-21-2022 Platelet mean volume (Bld) [Entitic vol] 9.8 fL 6.6-10.1 [facility] Platelet poor plasma interna tional normalized ratio (INR) by coagulation assay (relatOrdered By: Lex Carroll on 09-21-2022 INR Coag (PPP) [Relative time] 1.1 {INR} [facility] Comment on above: INR Therapeutic Rang [...] 09-21-2022 Platelets (Bld) [#/Vol] 91 10*3/uL 150-450 [facility] Potassium [Moles/volume] in Serum or PlasmaOrdered By: Lex Carroll on 09-21-2022 Potassium [Moles/Vol] 5.0 mmol/L 3.5-5.1 [facility] Protein [Mass/volume] in Ser um or PlasmaOrdered By: Lex Carroll on 09-21-2022 Protein [Mass/Vol] 6.4 g/dL 6.4-8.9 [facility] RBC Auto (Bld) [#/Vol]Ordere d By: Lex Carroll on 09-21-2022 RBC (Bld) [#/Vol] 3.68 10*6/uL 3.90-5.60 [facility] Serum cfmab-2-kgbvxwcijwg me asurementOrdered By: Lex Carroll on 09-21-2022 Alpha 1 antitrypsin [Mass/Vol] 205 mg/dL 101-187 [facility] Serum hepatitis B virus surf waldo antibody detectionOrdered By: Lex Carroll on 09-21-2022 HBV surface Ab Ql (S) Non-Reactive . [facility] Comment on above: Non Reactive: Incons istent with immunity, less than 10 mIU/mL Reactive: Consistent with immunity, greater than 9.9 mIU/mL Serum mitochondria M2 IgG an tibody assay (units/volume)Ordered By: Lex Carroll on 09-21-2022 Mitochondria M2 IgG Qn (S) <20.0 Units 0.0-20.0 [facility] Comment on above: Negative 0.0 - 20.0 Equivocal 20.1 - 24.9 Positive >24.9Mitochondrial (M2) Antibodies are found in 90-96% ofpatients with primary biliary cirrhosis.Performed at: [facility] [id number] Director: John Tang PhD, Phone: [phone] Serum or plasma albumin/glob ulin mass ratioOrdered By: Lex Carroll on 09-21-2022 Albumin/Globulin [Mass ratio] 1.3 {ratio} [facility] Serum or plasma alpha 1 anti trypsin phenotyping identification by immunofixationOrdered By: Lex Carroll on 09-21-2022 Alpha 1 antitrypsin phenotyping Immunofixation Nom Mm . [facility] Comment on above: Phenotype Population A-1-AT [...] reference. Ranges used to confirm phenotype.Performed at: [facility] [id number] Director: John Tang PhD, Phone: [phone] at: [address] [id number] Director: George Brown MD, Phone: [phone] Serum or plasma anion gap de terminationOrdered By: Lex Carroll on 09-21-2022 Anion gap [Moles/Vol] 11.1 mmol/L 6.0-15.0 [facility] Serum or plasma ceruloplasmi n measurement (mass/volume)Ordered By: Lex Carroll on 09-21-2022 Ceruloplasmin [Mass/Vol] 22.4 mg/dL 16.0-31.0 [facility] Comment on above: Performed at: [address], [place], [place] [id number] Director: John Tang PhD, Phone: [phone] Serum or plasma free cefurox nhi measurement (mass/volume)Ordered By: Lex Carroll on 09-21-2022 Cefuroxime free [Mass/Vol] Negative Negative [facility] Comment on above: Performed at: [facility] [address] [id number] Director: John Tang PhD, Phone: [phone] Serum or plasma high density lipoprotein (HDL) cholesterol measurementOrdered By: Lex Carroll on 09-21-2022 Cholesterol in HDL [Mass/Vol] 60 mg/dL [facility] Comment on above: HDL CHOL ATP-III CLA SSIFICATION Cardiovascular RiskHDL > or equal to 60 mg/dL LOWHDL < 40 mg/dL HIGH Serum or plasma total choles terol/high density lipoprotein (HDL) cholesterol mass ratOrdered By: Lex Carroll on 09-21-2022 Cholesterol.total/Chol esterol in HDL [Mass ratio] 2.9 {ratio} <5.0 [facility] Sodium [Moles/volume] in Ser um or PlasmaOrdered By: Lex Carroll on 09-21-2022 Sodium [Moles/Vol] 141 mmol/L 136-145 [facility] Triglyceride [Mass/volume] i n Serum or PlasmaOrdered By: Lex Carroll on 09-21-2022 Triglyceride [Mass/Vol] 107 mg/dL 0-149 [facility] Comment on above: TRIG ATP III CLASSIF ICATIONTRIG less than 150 mg/dL NormalTRIG 150-199 mg/dL Borderline highTRIG 200-500 mg/dL High TRIG greater than 500 mg/dL Very highStandard traceable to the Center for Disease Conrtrol and Prevention (CDC) test method. Urea nitrogen [Mass/volume] in Serum or PlasmaOrdered By: Lex Carroll on 09-21-2022 Urea nitrogen [Mass/Vol] 9 mg/dL 11-08 [facility] WBC Auto (Bld) [#/Vol]Ordere d By: Lex Carroll on 09-21-2022 WBC (Bld) [#/Vol] 4.2 10*3/uL 4.1-10.5 [facility] PROGRESSon 04-05-2017 PROGRESS HNO ID: [id number] Author: Bebe Cunningham Ma Service: (none) Author Type: (none) Type: Progress Notes Filed: 04/05/2017 7:36 AM Note Text: PCP updated Normal [facility] PROGRESS HNO ID: [id number] thor: Tanisha Arzateervice: (none)Author Type: PhysicianType: Progress NotesFiled: 04/05/2017 7:36 AMNote Text:This note was created using Solsriter.Marcio Blandon is a 61 year old male.Review of SystemsObjectiveThere were no vitals taken for this visit.Physical ExamAssessment and PlanPlease remove me as PCP if he is moving out of state and plans toestablish elsewhere.Thank you. [facility] CNPTOUTREACHon 04-04-2017 CNPTOUTREA Patient Outreach ([facility]) NATHANIEL BLANDON AM ([id number]) 1955 [facility] Kazxevptdy90/19/17 TANISHA VAZQUEZ [facility] During your visit today, we recorded the following information about you:Bebe Cunningham Ma 04/05/2017 7:36 AM SignedSee refill request 03/30, [place] moving to out of states , do you want to updateJoseline Vazquez MD 04/05/2017 7:36 AM SignedThis note was created using MyClean.Marcio Blandon is a 61 year old male.Review of SystemsObjectiveThere were no vitals taken for this visit.Physical ExamAssessment and PlanPlease remove me as PCP if he is moving out of [place] and [place] [facility].Thank you.Bebe Cunningham Ma 04/05/2017 7:36 AM SignedPCP updatedAllergies As of Date: 04/04/2017 Noted Allergy ReactionBACTRIM (SULFAMETHOXAZOLE-TRIMETH *12/15/2014 2 - RashDate Reviewed: 01/04/2017Reviewed by: Bebe Cunningham Ma - Fully AssessedReason for Visit: PHCA/Care Gap Outreach [3605]Prescriptions as of 04/04/2017 Sig: METOPROLOL SUCCINATE ER 50 MG* Take 1 tablet by mouth once d* LISINOPRIL 20 MG TABLET Take 1 tablet by mouth once d* OMEPRAZOLE 40 MG CAPSULE,SANA* Take 1 capsule by mouth once * ZOLPIDEM 10 MG TABLET Take 0.5 tablets by mouth at * ASPIRIN 81 MG TABLET,DELAYED * Take 81 mg by mouth once ocri* MULTIVITAMIN TABLET Take 1 tablet by mouth [...] polyps [Z86.010]Follow-up and Disposition History RecordedEncounter Number: [id number] Status:Closed by BEBE CUNNINGHAM MA on 04/05/17 [facility] PROGRESSon 04-04-2017 PROGRESS HNO ID: [id number] Author: Bebe Cunningham Ma Service: (none) Author Type: (none) Type: Progress Notes Filed: 04/05/2017 7:36 AM Note Text: See refill request 03/30, pt moving to out of [facility] , do you want to update PCP Normal [facility] OBSOLETEon 03-30-2017 OBSOLETE Refill ([facility]) NATHANIEL BLANDON AM ([id number]) 1955 MDate Time Provider Htjhebcark16/14/17 TANISHA VAZUQEZ [facility] During your visit today, we recorded the following information about you:Bebe Cunningham Ma 03/30/2017 4:25 PM SignedPt [facility] 03/31/2017 3:12 PM SignedPt states they are moving to [place] he has apt to see a new [...] 1 capsule by mouth once daily. CHIDI: NoVirginia Sauceda CNPAllergies As of Date: 03/30/2017 Noted [...] TABLET* 90 t* 0 03/31/2017 Class: Express DiBcom Route: ORAL Sig: Take 1 tablet by mouth once daily. LISINOPRIL 20 MG TABLET 90 t* 0 03/31/2017 Class: Express DiBcom Route: ORAL Sig: Take 1 tablet by mouth once daily. OMEPRAZOLE 40 MG CAPSULE,DELAYED REL* 90 c* 0 03/31/2017 Class: Express DiBcom Route: ORAL Sig: Take 1 capsule by mouth once daily.Medications Discontinued During This Encounter metoprolol succinate ER (TOPROL XL) * 90 t* 3 04/28/2016 03/31/2017 Class: Express DiBcom Route: ORAL Sig: Take 1 tablet by mouth once daily. Disc: Reason for discontinue is not on file. lisinopril (PRINIVIL) 20 mg tablet 90 t* 3 04/28/2016 03/31/2017 Class: Express DiBcom Route: ORAL Sig: Take 1 tablet by mouth once daily. Disc: Reason for discontinue is not on file. Omeprazole 40 mg capsule 90 c* 3 04/28/2016 03/31/2017 Class: Express DiBcom Route: ORAL Sig: Take 1 capsule by mouth once daily. Disc: Reason for discontinue is not on file. Status:Closed by VIRGINIA SAUCEDA CNP on 03/31/17 [facility] 02-13-2017 [facility] Nurse Visit ([facility]) NATHANIEL BLANDON AM ([id number]) 1955 MDate Time Provider Wyeegkwogb92/30/17 5:50 PM NURSE EYAD CAMARA During your visit today, we recorded the [...] Hx of colonic polyps [Z86.010] Status:Closed by OTONIEL TINOCO on 02/13/17 [facility] 02-13-2017 HOSP REFILL - MYCHART ([facility]) NATHANIEL BLANDON AM ([id number]) 1955 MDate Time Provider Ybwewxaxol48/30/[address] [facility] visit today, we recorded the following information about you:Bebe Cunningham Ma 02/13/2017 2:[address]:Original authorizing provider: Ruben Iqbal would like a refill of the following medications:zolpidem (AMBIEN) 10 mg tab [Tanisha Vazquez MD]Preferred pharmacy: [id number] [place] [address] - [id number] - [phone] [facility] MELIZA [id number]:Bebe Cunningham Ma 02/13/2017 2:38 PM SignedScript pending please review/fileLast filled 04/28/16Next appt: 02/13/2017 nurse visit (flu shot )Last appt: 01/04/2017Tanisha Vazquez MD 02/13/2017 2:45 PM SignedPlease advise the patient that the prescription has been refilled.Thank you,Shirley Iqbal Ma 02/13/2017 2:55 PM SignedScript called [facility] As of Date: 02/13/2017 Noted Allergy ReactionBACTRIM [...] Status:Closed by TANISHA VAZQUEZ MD on 02/13/17 [facility] CNOVon 01-04-2017 [facility]OV [facility] AM ([id number]) 1955 [facility] Provider Department01/04/17 9:00 AM TANISHA VAZQUEZ [facility] During your visit today, we recorded the following information about you: Temperature Pulse Blood pressure Weight 98.2 degrees 59/minute 172/93 98 Karina Vazquez MD 01/04/2017 9:00 AM Kristandimitri León Blandon is a 61 year old male here for an acute visit with concernabout left foot and toe pain. Area is swollen, tender and deformed. He sawcovering doctor, given naprosyn with no improvement, switched to colchicine,some improvement but still painful.Walking on the side of his foot.He denies any trauma.HISTORY REVIEWED (electronic chart updated):- medical history- medications- allergiesREVIEW OF SYSTEMS:As noted in HPIPHYSICAL EXAMINATION: 295540LY: 172/93BP Site: Left ArmBP Position: SittingBP Cuff [...] LT- XR FOOT GENERAL 3V AP/LAT/OBL LTAmber Morena Vazquez Provider: TANISHA VAZQUEZ [[id number]]Allergies As of Date: 01/04/2017 Noted Allergy ReactionBACTRIM (SULFAMETHOXAZOLE-TRIMETH *12/15/2014 2 - RashDate Reviewed: 01/04/2017Reviewed by: Bebe Cunningham Ma - Fully AssessedReason for Visit: Acute Visit [896] Cmt: swollen toe x 2 weeksReason For Visit History RecordedPrimary Visit Diagnosis:Great toe pain, left [M79.675]Order(s):XR TOE AP/LAT/OBL LT [4015313] Order #: [id number] FUTURE XR FOOT GENERAL 3V AP/LAT/OBL LT [1710979] Order #: [id number] FUTUREPrescriptions as of 01/04/2017 Sig: METOPROLOL SUCCINATE [...] meals. Disc: Course of therapy completedEncounter Number: [id number] Status:Closed by TANISHA VAZQUEZ MD on 01/04/17 [facility] 01-04-2017 [facility] Telephone ([facility]) NATHANIEL BLANDON AM ([id number]) 1955 [facility] Provider Department01/04/17 TANISHA VAZQUEZ [facility] During your visit today, we recorded [...] T TO ORTHOPAEDIC SURGERY [[id number]] Order #: [id number]: 1Prescriptions as of 01/04/2017 Sig: METOPROLOL SUCCINATE [...] of colonic polyps [Z86.010] Status:Closed by TANISHA VAZQUZE MD on 01/04/17 Normal [facility] PROGRESSon 01-04-2017 PROGRESS HNO ID: [id number] thor: Jaclyn Lowe (Tech) JoeSer: (none)Author Type: TechnicianType: Progress NotesFiled: 01/04/2017 9:36 AMNote Text: Radiology Service Progress NotePATIENT NAME: Charles AyalagMRN: [id number] OF SERVICE: January 04, 2017TIME: 9:36 AMPATIENT IDENTITY VERIFICATION COMPLETED USING TWO (2) METHODS: Patientconfirmed name verbally and Date of .PATIENT GENDER DATA: MalePATIENT RELEVANT IMPLANT DATA REVIEWED: Not ApplicableRADIOLOGY DEPARTMENT: General X-ray: Exam(s) Completed: Lower ExtremityX-Ray(s): Foot, Left and Wt. Bearing and Toes, Left:PERIPHERAL IV DATA: Not applicableSIGNED BY: Jaclyn Diaz [facility]Sept[facility] 9:36 AM [facility] PROGRESS HNO ID: [id number] thor: Tanisha Clarkice: (none)Author Type: PhysicianType: Progress [...] FOOT GENERAL 3V AP/LAT/OBL LTTanisha Vazquez MD [facility] XR FOOT 3V AP/LAT/OBL LTon 0 01-04-2017 [...] phalanx with extension into the 1st IP joint.Claims Analyst: SRINI Transcribe Date/Time: Jan 04 2017 10:28ADictated by : Sedrick ANDREWS examination was interpreted and the report reviewed and electronically signed by: MALORIE NICHOLS MD on Jan 04 2017 2:47PM [id number] Normal [facility] XR TOE 3V AP/LAT/OBL LTon XR [...] phalanx with extension into the 1st IP joint.Claims Analyst: SRINI Transcribe Date/Time: Jan 04 2017 10:28ADictated by : Sedrick ANDREWS examination was interpreted and the report reviewed and electronically signed by: MALORIE NICHOLS MD on Jan 04 2017 2:47PM [id number] [facility] CNPNon 12-11-2016 CNPN Telephone ([facility]) NATHANIEL BLANDON AM ([id number]) 1955 MDate Time Provider Department12/11/16 COY BLANCHARD [facility] During your visit today, we recorded [...] Status:Closed by COY BLANCHARD MD on 12/12/16 [facility] CNOVon 12-10-2016 CNOV Office Visit ([facility]) NATHANIEL BLANDON AM ([id number]) 1955 MDate Time Provider Department12/10/16 9:30 AM COY BLANCHARD [facility] During your visit today, we recorded the following information about you: Temperature Pulse Blood pressure Weight 98.5 degrees 88/minute 158/92 95.7 kgMattfilippow Fracisco Blanchard MD, MD 12/10/2016 9:59 AM ApurvaBernicerakanjonathon Blandon is a 61 year old male [...] ?F) (Oral) Wt 95.7 kg (211 lb) ItA078% BMI 30.71 kg/m2BMI 30.71 kg/(m2)General: alert and [...] MG TABLET- URIC ACID BLOODMattjose juan Blanchard MDAlvarado Hospital Medical CenterjamesGranville Medical Center 12/10/2016 9:58 AM SignedPhlebotomy was performed per [...] 1 URIC ACID BLOOD [SQURIC] Order #: [id number] as of 12/10/2016 Sig: METOPROLOL SUCCINATE ER [...] to improve.Follow-up and Disposition History RecordedEncounter Number: [id number] Status:Closed by COY BLANCHARD MD on 12/10/16 [facility] PROGRESSon 12-10-2016 PROGRESS HNO ID: [id number] thor: ANABELLA Hawleyervice: (none)Author Type: PhysicianType: Progress NotesFiled: 12/10/2016 9:59 AMNote Text:Charles Blandon is a 61 year old male here complaining of left toe pain.According to the patient, he states he has been diagnosed with gout in [facility] and has had similar symptoms. Last night, [...] URIC ACID BLOODMattjose juan Blanchard MD Normal [facility] Uric Acidon 12-10-2016 Urate 8.2 mg/dL High 4.0-8.1 [facility] Comment on above: Performed By: #### U BARB ####[facility] [address] [place], [place] [id number] CNOVon 11-01-2016 CNOV Office Visit ([facility]) NATHANIEL BLANDON AM ([id number]) 1955 [facility] Department11/01/16 9:30 AM ROYCE ARAIZA During your visit today, we recorded the following information about you: Pulse Blood pressure 57/minute 165/82Royce Araiza MD 11/01/2016 2:06 PM SignedDERMATOLOGY CONSULT FOR MOHSSERVICE DATE: 11/01/2016[facility]ITAL[facility] PHYSICIAN: MORENA Iqbal PROVIDER:Tanisha Vazquez MD[address] [id number] requested for an opinion regarding the evaluation and treatmentof skin cancer. My final impression and recommendations will be communicatedback to the requesting physician by way of the shared medical record or lettervia US mail.SUBJECTIVECHIEF COMPLAINT: BCCHISTORY OF PRESENT ILLNESSBIOPSY INFORMATION:1. Pathology Results: BCC Nodular and Ulcerated of the LEFT TEMPLEReport Number: Inside Pathology [id number] Performed: 08/10/2016Performed By: [facility] ProviderPast Treatment: No Past Treatment Tumor Type: PrimaryPresent For: unknown amount of month(s)Signs ANDamp; Symptoms: Non-healingPAST DERM HISTORY: No History of Skin CancerFAMILY HISTORY: No History of Skin CancerPAST MEDICAL HISTORYDiagnosis Date- Recinos's esophagus- GERD (gastroesophageal reflux disease)- HTN (hypertension)- Hx of colonic polyps- Osteoporosis- Umbilical herniaPAST SURGICAL [id number]: CHOLECYSTECTOMYNo date: COLONOSCOPY Comment: every 3 yearsNo [...] Nose, Chin, Lips, Ears, Periauricular Skin and [place])Pre-op Size: 0.6 cm - 1 cm, (0.7cm [...] and Past Histories independentlygathered by the clinical medical support assistant and the remaining scribed noteaccurately describes my personal service to the patient.SIGNATURE: Royce Araiza MD PATIENT NAME: Charles AyalagDATE: November 01, 2016 : 10:20 AM PAGER/CONTACT #:MOHS MICROGRAPHIC OPERATIVE REPORTSERVICE DATE: 11/01/2016SERVICE TIME: 9:10 AMLOCATION:[facility] [place], [place] [address]ZVYECFZXE PROVIDER:Tanisha Vazquez MD[address] [facility] [id number] START TIME: 941PROCEDURE END TIME: 2SURGEON: Dr. Royce AraizaRESIDENT: Dr. Sia AlfaroerANTICOAGULANTS:ASA, AleveIMPLANTED [...] Available at Bedside: Inside pathology report # [id number] Size: 0.6 cm - 1 cm, (0.7cm [...] surgery on a Primarytumor type from LEFT RASTAFARIAN (location of tumor).Post-op Defect Size: 1.0 x [...] GIVEN WITH VERBAL UNDERSTANDING: YesPATIENT DISCHARGED TO SENIOR RECRUITER/NAME: SelfFOLLOW UP: Return for wound care check in 6 weekse Dermatology yearly or as needed for FSE'sPRNThe documentation for this note was completed by Lis Serrano RN acting asscribe for Royce Araiza MD. November 01, 2016 10:29 AM.I agree with the Chief Complaint, ROS, and Past Histories independentlygathered by the clinical medical support assistant and the remaining scribed noteaccurately [...] SurgeryDepartment to speak to a Nurse at [phone].After 5 pm, nights, and weekends, please call [phone] or and ask for the dermatology surgery fellow subcontract administrator.Referring Provider: TANISHA VAZQUEZ [[id number]]Allergies As of Date: 11/01/2016 Noted Allergy ReactionBACTRIM (SULFAMETHOXAZOLE-TRIMETH *12/15/2014 2 - RashDate Reviewed: 11/01/2016Reviewed by: Royce Araiza - Fully AssessedPrimary Visit Diagnosis:Basal cell carcinoma of left anglican region [C44.319]Prescriptions as of 11/01/2016 Sig: METOPROLOL [...] Department to speak to a Nurse at [phone]. After 5 pm, nights, and weekends, please call [phone] or and ask for the dermatology surgery fellow subcontract administrator.Disposition: Return in about 6 weeks (around 12/13/2016) for WOUND CHECK.Follow-up and Disposition History RecordedEncounter Number: [id number] Status:Closed by ROYCE ARAIZA MD on 11/01/16 Normal [facility] PROGRESSon 11-01-2016 PROGRESS HNO ID: [id number] thor: Royce [place]odenny: (none)Author Type: PhysicianType: Progress NotesFiled: 11/01/2016 2:06 PMNote Text:DERMATOLOGY CONSULT FOR AURELIO DATE: 11/01/2016PRIMARY CARE PHYSICIAN: MORENA Iqbal PROVIDER:Tanisha Vazquez MD[address] [facility] [address]Opaatznmmcjw requested for an opinion regarding the evaluation andtreatment of skin cancer. My final impression and recommendations will becommunicated back to the requesting physician by way of the shared medicalrecord or letter via US mail.SUBJECTIVECHIEF COMPLAINT: BCCHISTORY OF PRESENT ILLNESSBIOPSY INFORMATION:1. Pathology Results: BCC Nodular and Ulcerated of the LEFT TEMPLEReport Number: Inside Pathology [id number] Performed: 08/10/2016Performed By: [facility] ProviderPast Treatment: No Past Treatment Tumor Type: PrimaryPresent For: unknown amount of month(s)Signs AND Symptoms: Non-healingPAST DERM HISTORY: No History of Skin CancerFAMILY HISTORY: No History of Skin CancerPAST MEDICAL HISTORYDiagnosis Date- Recinos's esophagus- GERD (gastroesophageal reflux disease)- HTN (hypertension)- Hx of colonic polyps- Osteoporosis- Umbilical herniaPAST SURGICAL [id number]: CHOLECYSTECTOMYNo date: COLONOSCOPY Comment: every 3 yearsNo [...] Eyebrows, Nose, Chin, Lips, Ears, Periauricular Skinand [place])Pre-op Size: 0.6 cm - 1 cm, (0.7cm [...] and Past Histories independentlygathered by the clinical medical support assistant and the remaining scribed noteaccurately describes my personal service to the patient.SIGNATURE: Royce Araiza MD PATIENT NAME: Charles AyalagDATE: November 01, 2016 : 10:20 AM PAGER/CONTACT #:MOHS MICROGRAPHIC OPERATIVE REPORTSERVICE DATE: 11/01/2016SERVICE TIME: 9:10 AMLOCATION:[place] Inderjit [facility] [place], [place] [address]ODLGAVPYS PROVIDER:Tanisha Vazquez MD[address] [facility] [address]GFQMNOOWO START TIME: 941PROCEDURE END TIME: 2SURGEON: Dr. Royce AraizaRESIDENT: Dr. Sia AlfaroerANTICOAGULANTS:ASA, AleveIMPLANTED [...] Available at Bedside: Inside pathology report # [id number] Size: 0.6 cm - 1 cm, (0.7cm X 0.8cm)Lymphadenopathy: NoneIndication for Mohs: Anatomic Location where lesion is prone to recur,Type of tumor, Age of patient and Ill-defined bordersLocation: Area H: (Mask Areas of the Face - Includes Central Face,Eyelids, Inner/Outer [place], Eyebrows, Nose, Chin, Lips, Ears,Periauricular Skin and [place])Preparation: Povidone-iodineLAYER AThe patient was positioned, prepped with [...] surgery on aPrimary tumor type from LEFT RASTAFARIAN (location of tumor).Post-op Defect Size: 1.0 x [...] GIVEN WITH VERBAL UNDERSTANDING: YesPATIENT DISCHARGED TO SENIOR RECRUITER/NAME: SelfFOLLOW UP: Return for wound care check in 6 weeksSee Dermatology yearly or as needed for FSE'sPRNThe documentation for this note was completed by Lis Serrano RN acting asscribe for Royce Araiza MD. November 01, 2016 10:29 AM.I agree with the Chief Complaint, ROS, and Past Histories independentlygathered by the clinical medical support assistant and the remaining scribed noteaccurately describes my personal service to the patient.SIGNATURE: Royce Araiza MD PATIENT NAME: Charles HendersonjonathangDATE: November 01, 2016 : 9:10 AM PAGER/CONTACT #: [facility] 10-17-2016 [facility] Nurse Visit ([facility]) NATHANIEL BLANDON AM ([id number]) 1955 MDate Time Provider Department10/17/16 7:00 AM [facility] During your visit today, we recorded the following information about you:Constance Mancuso Dietitian Research 10/17/2016 1:46 PM SignedPhlebotomy was performed per the order of Tanisha Vazquez M.D.., accessing leftantecubital vein.Needle removed intact. Dressing secured with tape.Patient denies discomfort, dizziness, light-headedness, or weakness and leftthe office ambulatory..Referring Provider: TANISHA VAZQUEZ [[id number]]Allergies As of Date: 10/17/2016 Noted Allergy ReactionBACTRIM (SULFAMETHOXAZOLE-TRIMETH *12/15/2014 2 - RashDate Reviewed: 08/10/2016Reviewed by: Bebe Cunningham Ma - Fully AssessedVisit Diagnoses:Abnormal LFTs [R79.89] Elevated fasting blood sugar [R73.01]Order(s):COMP METABOLIC PANEL [SQCMP] Order #: [id number] HGB A1C [MBXWD9N] Order #: [id number] as of 10/17/2016 Sig: METOPROLOL SUCCINATE ER [...] of colonic polyps [Z86.010]Visit Notes:>> Constance Mancuso Dietitian Research Mon Oct 17, 2016 1:42 PM Status: SignedPhlebotomy was performed per the order of Tanisha Vazquez M.D.., accessingleft antecubital vein.Needle removed intact. Dressing secured with tape.Patient denies discomfort, dizziness, light-headedness, or weakness andleft the office ambulatory.. Status:Closed by CONSTANCE DE LA ROSA on 10/17/16 Normal [facility] Comp Metabolic Panelon 10-17 Alanine aminotransferase (ALT) 38 U/L Normal 10-54 [facility] Comment on above: Performed By: #### C MP, HBA1C ####[facility] [place] [address] [phone] Albumin 4.1 g/dL Normal 3.9-4.9 [facility] Comment on above: Performed By: #### C MP, HBA1C ####[place] [address] [place] [address] [phone] Alkaline phosphatase (ALP) 54 U/L Normal 36-108 [facility] Comment on above: Performed By: #### C MP, HBA1C ####[place] [address] [place] [address] [phone] Anion gap 20 mmol/L High 9-18 [facility] Comment on above: Performed By: #### C MP, HBA1C ####[place] [address] [place] [address] [phone] Aspartate aminotransferase (AST) 43 U/L High 14-40 [facility] Comment on above: Performed By: #### C MP, HBA1C ####[place] [address] [place] [address] [phone] Bilirubin (total) 0.3 mg/dL Normal 0.2-1.3 [facility] Comment on above: Performed By: #### C MP, HBA1C ####[facility] [place] [address] [phone] Calcium 9.5 mg/dL Normal 8.5-10.2 [facility] Comment on above: Performed By: #### C MP, HBA1C ####[facility] [place] [address] [phone] Chloride 101 mmol/L Normal 97-105 [facility] Comment on above: Performed By: #### C MP, HBA1C ####[facility] AveCSpencer [place] [phone] CO2 23 mmol/L Normal 22-30 [facility] Comment on above: Performed By: #### C MP, HBA1C ####[facility] [address] AveCCuster, [place] [phone] Creatinine 1.02 mg/dL Normal 0.73-1.22 [facility] Comment on above: Performed By: #### C MP, HBA1C ####[facility] [address] AveCCuster, [place] [phone] eGFR (non-black) mL/min/{1.73_m2} Normal [facility] Comment on above: Performed By: #### C MP, HBA1C ####[facility] [address] [place] [address], [place] [phone] Result Comment: eGFR (Estimated GFR) Units of [...] Glucose mass conc 90 mg/dL Normal 74-99 [facility] Comment on above: Result Comment: The [place] Diabetes Association (ADA) provides guidance for cutoff [...] Standards of Medical Care in Diabetes 2016, [place] Diabetes Association. Diabetes Care. 2016.39(Suppl 1). Performed By: #### C MP, HBA1C ####[facility] [address] [place], [place] [phone] Potassium molar conc 4.6 mmol/L Normal 3.7-5.1 [facility] Comment on above: Performed By: #### C MP, HBA1C ####[facility] [place], [place] [phone] Protein 7.1 g/dL Normal 6.3-8.0 [facility] Comment on above: Performed By: #### C MP, HBA1C ####[address] [phone] Sodium 144 mmol/L Normal 136-144 [facility] Comment on above: Performed By: #### C MP, HBA1C ####[address] [phone] Urea nitrogen 18 mg/dL Normal 9-24 [facility] Comment on above: Performed By: #### C MP, HBA1C ####[address] [phone] Hemoglobin A1con 10-17-2016 Glucose mass conc 120 mg/dL Normal [facility] Comment on above: Result Comment: eAG: (Estimated average glucose) is a calculated value from HgbA1c and is cordage sales representative of the average blood glucose level in the last 2-3 month period. Performed By: #### C MP, HBA1C ####[address] [phone] Hemoglobin A1c/Hemoglobin.total mass fraction (Bld) 5.8 % High 4.3-5.6 [facility] Comment on above: Result Comment: [place] Diabetes Association guidelines indicate that patients with HgbA1c in the range 5.7-6.4% are at increased risk for development of diabetes, and intervention by lifestyle modification may be beneficial. HgbA1c greater or equal to 6.5% is considered diagnostic of diabetes. Performed By: #### C MP, HBA1C ####[address] [phone] Vital Signs Date Time Vital Sign Value Performing Clinician Facility 07-05-2023 08:58-0400 Body weight 94.85 kg II Rusty Delgado Work Phone: [facility] 07-05-2023 08:58-0400 Diastolic blood pressure 71 mm[Hg] II Rusty Delgado Work Phone: [facility] 07-05-2023 08:58-0400 Heart rate 88 /min II Rusty Delgado Work Phone: [facility] 07-05-2023 08:58-0400 Systolic blood pressure 121 mm[Hg] II Rusty Delgado Work Phone: [facility] 06-13-2023 17:15-0500 Diastolic blood pressure 62 mm[Hg] II Rusty Delgado Work Phone: [facility] 06-13-2023 17:15-0500 Heart rate 72 /min II Rusty Delgado Work Phone: [facility] 06-13-2023 17:15-0500 Respiratory rate 20 /min II Rusty Delgado Work Phone: [facility] 06-13-2023 17:15-0500 SaO2% (BldA) [Mass fraction] 94 % II Rusty Delgado Work Phone: [facility] 06-13-2023 17:15-0500 Systolic blood pressure 101 mm[Hg] II Rusty Delgado Work Phone: [facility] 06-13-2023 13:38-0500 Body height 175.26 cm II Rusty Delgado Work Phone: [facility] 06-13-2023 13:38-0500 Body mass index (BMI) [Ratio] 31.1 kg/m2 II Rusty Delgado Work Phone: [facility] 06-13-2023 13:38-0500 Body weight 95.7 kg II Rusty Delgado Work Phone: [facility] 06-13-2023 12:05-0500 Body temperature 98.2 [degF] II Rusty Delgado Work Phone: [facility] 05-31-2023 15:07-0500 Body height 175.3 cm Janneth Itzkowitz DO Work Phone: [facility] 05-31-2023 15:07-0500 Body mass index (BMI) [Ratio] 32.05 kg/m2 Janneth Itzkowitz DO Work Phone: [facility] 05-31-2023 15:07-0500 Body weight 98.43 kg Janneth Itzkowitz DO Work Phone: [facility] 05-31-2023 15:07-0500 Diastolic blood pressure 72 mm[Hg] Janneth Itzkowitz DO Work Phone: [facility] 05-31-2023 15:07-0500 Systolic blood pressure 120 mm[Hg] Janneth Itzkowitz DO Work Phone: [facility] 05-23-2023 06:44-0500 Body height 175.26 cm II Rusty Delgado Work Phone: [facility] 05-23-2023 06:44-0500 Body weight 99.79 kg II Rusty Delgado Work Phone: [facility] 05-18-2023 14:04-0500 Body height 175.3 cm Janneth Itzkowitz DO Work Phone: [facility] 05-18-2023 14:04-0500 Body mass index (BMI) [Ratio] 32.78 kg/m2 Janneth Itzkowitz DO Work Phone: [facility] 05-18-2023 14:04-0500 Body weight 100.7 kg Janneth Itzkowitz DO Work Phone: [facility] 05-18-2023 14:04-0500 Diastolic blood pressure 74 mm[Hg] Janneth Itzkowitz DO Work Phone: [facility] 05-18-2023 14:04-0500 Systolic blood pressure 120 mm[Hg] Janneth Villegas DO Work Phone: [facility] 04-12-2023 11:00-0500 Body height 175.26 cm Lorna Scovanner Other [facility] 04-12-2023 11:00-0500 Body mass index (BMI) [Ratio] 33.22 kg/m2 Lorna Scovanner Other [facility] [employer] Other 04-12-2023 11:00-0500 Body weight 102.06 kg Lorna Scovanner Other [facility] Other 04-12-2023 11:00-0500 Body weight 102.05 kg JUDITH Delgado Work Phone: [facility] 04-12-2023 11:00-0500 Diastolic blood pressure 67 mm[Hg] Lorna Scovanner Other [facility] 04-12-2023 11:00-0500 Systolic blood pressure 135 mm[Hg] Lorna Scovanner Other [facility] 11-10-2022 11:00-0400 Body weight 99.79 kg Lorna Scovanner Other [place] [employer] Other 11-10-2022 11:00-0400 Diastolic blood pressure 74 mm[Hg] Lorna Scovanner Other [place] [employer] Other 11-10-2022 11:00-0400 Systolic blood pressure 127 mm[Hg] Lorna Scovanner Other [place] [employer] Other 09-21-2022 08:49-0400 Diastolic blood pressure 78 mm[Hg] JUDITH Delgado Work Phone: [facility] 06-07-2023 08:49-0400 Heart rate 50 /min II Rusty Delgado Work Phone: [facility] 09-21-2022 08:49-0400 SaO2% (BldA) [Mass fraction] 99 % II Rusty Delgado Work Phone: [facility] 09-21-2022 08:49-0400 Systolic blood pressure 125 mm[Hg] II Rusty Delgado Work Phone: [facility] 09-21-2022 07:36-0400 Body height 175.26 cm II Rusty Delgado Work Phone: [facility] 09-21-2022 07:36-0400 Body temperature 98.5 [degF] II Rusty Delgado Work Phone: [facility] 09-21-2022 07:36-0400 Body weight 95.25 kg II Rusty Delgado Work Phone: [facility] 09-21-2022 07:36-0400 Respiratory rate 16 /min II Rusty Delgado Work Phone: [facility] Encounters Encounter Date Encounter Type Care Provider Facility Start: 12-13-2023 End: 12-13-2023 ambulatory FABY ECHEVARRIA Not Available Start: 12-12-2023 End: 12-12-2023 ambulatory II Rusty Delgado Work Phone: [facility] Work Phone: Start: 12-12-2023 End: 12-12-2023 Departed Referred II Rusty Delgado Work Phone: [facility] Start: 12-08-2023 End: 12-08-2023 ambulatory [facility] Facility:[facility] Start: 12-08-2023 End: 12-08-2023 Departed Referred II Rusty Delgado Work Phone: [facility] Start: 12-07-2023 End: 12-07-2023 ambulatory II Rusty Delgado Work Phone: [facility] Work Phone: Start: 12-07-2023 End: 12-07-2023 Departed Referred II Rusty Delgado Work Phone: [facility] Start: 11-27-2023 End: 11-27-2023 ambulatory [facility] Start: 11-15-2023 End: 11-15-2023 ambulatory RUSTY Gomez DANNY Not Available Start: 11-14-2023 End: 11-14-2023 ambulatory [facility] Start: 11-08-2023 End: 11-08-2023 ambulatory ROSALINO LAMAS Not Available Start: 10-13-2023 ambulatory [facility] Start: 10-13-2023 End: 10-13-2023 ambulatory [facility] Start: 10-09-2023 End: 10-09-2023 ambulatory JANNETH VILLEGAS Not Available Start: 10-03-2023 End: 10-03-2023 ambulatory JUDITH Delgado Work Phone: [facility] Work Phone: Start: 10-03-2023 End: 10-03-2023 Departed Referred II Rusty Delgado Work Phone: [facility] Start: 10-02-2023 End: 10-02-2023 ambulatory LYNDSEY PATEL Not Available Start: 09-25-2023 End: 09-25-2023 ambulatory [facility] Start: 09-15-2023 End: 09-15-2023 ambulatory WARD BENEDICT Not Available Start: 09-05-2023 End: 09-05-2023 ambulatory WARD BENEDICT Not Available Start: 08-30-2023 End: 08-30-2023 ambulatory WARD BENEDICT Not Available Start: 08-22-2023 End: 08-22-2023 ambulatory [facility] Start: 08-07-2023 End: 08-07-2023 ambulatory ARIAS [facility] Start: 07-18-2023 End: 07-18-2023 ambulatory FABY Syed WALE Not Available Start: 07-12-2023 End: 07-13-2023 ambulatory Janneth H Itzkowitz Facility:[facility] Start: 07-12-2023 End: 07-12-2023 Patient encounter procedure Jourdan ARRIAZA [facility] Start: 07-05-2023 End: 07-05-2023 ambulatory II Rusty Delgado Work Phone: [facility] Work Phone: Start: 07-05-2023 End: 07-05-2023 Patient encounter procedure II Rusty Danny Work Phone: [facility] Work Phone: Start: 06-29-2023 End: 06-29-2023 ambulatory JANNETH H ITZKOWITZ Not Available Start: 06-23-2023 ambulatory Janneth Itzkowitz Facil ity:[facility] Start: 06-22-2023 End: 06-22-2023 ambulatory JANNETH H ITZKOWITZ Not Available Start: 06-13-2023 End: 06-13-2023 Admission to same day surgery center II Rusty Danny Work Phone: [facility] [place] Start: 06-13-2023 End: 06-13-2023 ambulatory Rusty Delgado Facility:[facility] Start: 06-02-2023 End: 06-02-2023 Patient encounter procedure II Rusty Delgado Work Phone: [facility] Work Phone: Start: 06-02-2023 End: 06-02-2023 ambulatory II Rusty Delgado Work Phone: [facility] Work Phone: Start: 05-31-2023 End: 05-31-2023 Office outpatient visit 25 minutes Janneth H Itzkowitz DO Work Phone: [facility] [employer] Comment on above: Fissure in ano (Prim chinmay Dx) Start: 05-31-2023 End: 05-31-2023 ambulatory JANNETH H ITZKOWITZ Not Available Start: 05-23-2023 End: 05-23-2023 Admission to same day surgery center II Rusty Delgado Work Phone: [facility] Work Phone: Start: 05-23-2023 End: 05-23-2023 ambulatory Rusty Delgado Facility:[facility] Start: 05-18-2023 End: 05-18-2023 Office outpatient new 45 minutes Janneth H Itzkowitz DO Work Phone: [employer] Comment on above: Fissure in ano Start: 05-18-2023 End: 05-18-2023 ambulatory JANNETH H ITZKOWITZ Not Available Start: 05-11-2023 End: 05-11-2023 ambulatory Lorna Ortega Other [facility] Other Start: 05-11-2023 Office outpatient visit 15 minutes Lorna Ortega [facility] Start: 04-28-2023 End: 04-28-2023 ambulatory Lorna Ortega Other [facility] Other Start: 04-28-2023 Telephone encounter Lorna Coates [facility] Start: 04-27-2023 End: 04-27-2023 ambulatory Lorna Ortega Other [facility] Other Start: 04-27-2023 Telephone encounter Lorna Coates [facility] Start: 04-26-2023 End: 04-26-2023 Patient encounter procedure II Rusty Delgado Work Phone: [facility] [place] Work Phone: Start: 04-26-2023 End: 04-26-2023 ambulatory Rusty Delgado Facility:[facility] Start: 04-13-2023 End: 04-13-2023 ambulatory Lorna Ortega Other [facility] Other Start: 04-13-2023 Telephone encounter Lorna Coates [facility] Start: 04-12-2023 Office outpatient visit 25 minutes Lorna Ortega [facility] Start: 04-12-2023 Telephone encounter Lorna Coates [facility] Start: 04-12-2023 End: 04-12-2023 Patient encounter procedure II Rusty Delgado Work Phone: [facility] [place] Work Phone: Start: 04-12-2023 End: 04-12-2023 ambulatory II Rusty Delgado Work Phone: [facility] Other Start: 04-12-2023 End: 04-12-2023 Patient encounter procedure II Rusty Delgado Work Phone: [facility] Work Phone: Start: 04-03-2023 End: 04-03-2023 ambulatory Lorna Ortega Other [facility] Other Start: 04-03-2023 Telephone encounter Lorna Coates [facility] Start: 03-30-2023 End: 03-30-2023 ambulatory RUSTY DELGADO Not Available Start: 03-24-2023 End: 03-24-2023 ambulatory RUSTY DELGADO Not Available Start: 03-24-2023 End: 03-24-2023 ambulatory RUSTY DELGADO Not Available Start: 11-18-2022 End: 11-18-2022 ambulatory Lorna Ortega Other [facility] Other Start: 11-18-2022 Telephone encounter Lorna Coates [facility] Start: 11-15-2022 End: 11-15-2022 ambulatory II Rusty Delgado Work Phone: [facility] Work Phone: Start: 11-15-2022 End: 11-15-2022 Patient encounter procedure II Rusty Delgado Work Phone: [facility] [place] Work Phone: Start: 11-10-2022 End: 11-10-2022 ambulatory Lorna Ortega Other [facility] Other Start: 11-10-2022 Office outpatient visit 15 minutes Lorna Ortega [facility] Start: 11-03-2022 End: 11-03-2022 Patient encounter procedure II Rusty Delgado Work Phone: [facility] Work Phone: Start: 10-26-2022 End: 10-26-2022 ambulatory II Rusty Delgado Work Phone: [facility] Work Phone: Start: 10-26-2022 End: 10-26-2022 Departed Referred II Rusty Delgado Work Phone: [facility] Work Phone: Start: 10-26-2022 End: 10-26-2022 Patient encounter procedure II Rusty Delgado Work Phone: [facility] Work Phone: Start: 09-21-2022 End: 09-21-2022 Admission to same day surgery center II Rusty Delgado Work Phone: [facility] Work Phone: Start: 09-21-2022 End: 09-21-2022 ambulatory II Rusty Delgado Work Phone: [facility] Work Phone: Start: 02-13-2017 End: 02-13-2017 Ambulatory TANISHA CHEMA [facility] Start: 01-04-2017 End: 01-04-2017 Ambulatory TANISHA VAZQUEZ [facility] Start: 12-10-2016 End: 12-10-2016 Ambulatory COY BLANCHARD [facility] Start: 11-01-2016 End: 11-02-2016 Ambulatory ROYCE ARAIZA [facility] Start: 10-17-2016 End: 10-17-2016 Ambulatory TANISHA VAZQUEZ [facility] Procedures Date Procedure Procedure Detail Performing Clinician [...] 05-12-2032 Screening for malignant neoplasm of colon [facility] Start: 05-26-2024 Urine screening for protein Diabetes: Urine Protein Screening [facility] Start: 05-24-2024 Glaucoma screening Diabetes: Retinopathy Screening [facility] Start: 08-24-2023 Hemoglobin A1c measurement Diabetes: Hemoglobin A1C [facility] Start: 06-13-2023 [facility] Start: 06-13-2023 [facility] Start: 06-13-2023 End: 06-13-2023 Patient encounter procedure 06/13/2023 1:30 PM EST Procedure Visit [facility] Janneth Villgeas DO [address] [address] [facility] Start: 06-09-2023 End: 06-09-2023 Patient encounter procedure 06/09/2023 10:30 AM EST [facility] [address] [place] [id number] Janneth Villegas DO [facility] [address] [place] [address] [facility] Start: 05-26-2023 Medicare Annual Wellness (AWV) Medicare Annual Wellness (AWV) [facility] Start: 05-23-2023 [facility] Start: 02-23-2023 Hemoglobin A1c measurement Diabetes: Hemoglobin A1C [facility] Start: 11-03-2022 [facility] Start: 11-03-2022 Ultrasound elastography of liver DH Fibroscan (Not Applicable) [facility] Start: 10-26-2022 Ultrasound elastography of liver DH Fibroscan (Not Applicable) [facility] Start: 10-26-2022 [facility] Start: 09-21-2022 Hepatitis B core antibody measurement [facility] Start: 09-21-2022 End: 09-21-2022 [facility] Start: 1972 Urine screening for protein Diabetes: Urine Protein Screening [facility] Start: 08-03-1959 Pneumococcal Vaccine: 65+ Years (1 - PCV) Pneumococcal Vaccine: 65+ Years (1 - PCV) [facility] Start: 1955 Medicare Annual Wellness (AWV) Medicare Annual Wellness (AWV) [facility] Start: 1955 Screening for malignant neoplasm of colon [facility] Actin smooth muscle IgG Ab [Units/volume] in Serum [facility] Alpha 1 antitrypsin [Mass/volume] in Serum or Plasma [facility] Alpha 1 antitrypsin phenotyping [Identifier] in Serum or Plasma by Immunofixation [facility] Cefuroxime free [Mass/volume] in Serum or Plasma [facility] Ceruloplasmin [Mass/volume] in Serum or Plasma [facility] Hepatitis B virus galindo rface Ab [Presence] in Serum [facility] Hepatitis B virus galindo rface Ag [Presence] in Serum or Plasma by Immunoassay [facility] Hepatitis C virus Ig G Ab [Presence] in Serum or Plasma by Immunoassay [facility] Mitochondria M2 IgG Ab [Units/volume] in Serum [facility] Patient referral [facility] Work Phone: Immunizations Immunization Date Immunization Notes Care Provider Matt sosa 01-24-2023 influenza virus vaccine, unspecified formulation Jourdan ARRIAZA [facility] 04-30-2022 zoster vaccine recombinant Janneth Itzkowitz DO Work Phone: [facility] 03-22-2022 tetanus toxoid, reduced diphtheria toxoid, and acellular pertussis vaccine, adsorbed Janneth Itzkowitz DO Work Phone: [facility] 02-01-2022 influenza virus vaccine, unspecified formulation Jourdan ARRIAZA [facility] 02-01-2022 influenza, high dose seasonal, preservative-free Janneth Itzkowitz DO Work Phone: [facility] 02-17-2021 influenza virus vaccine, unspecified formulation Jourdan ARRIAZA [facility] 02-17-2021 influenza, high dose seasonal, preservative-free Janneth Itzkowitz DO Work Phone: [facility] 02-13-2017 influenza virus vaccine, unspecified formulation Jourdan ARRIAZA [facility] 02-13-2017 influenza, injectabl e, quadrivalent, contains preservative Janneth Itzkowitz DO Work Phone: [facility] 02-01-2016 influenza virus vaccine, unspecified formulation Jourdan ARRIAZA [facility] 02-01-2016 influenza, seasonal, injectable Janneth Itzkowitz DO Work Phone: [facility] 03-24-2015 zoster vaccine, live Janneth Itzkowitz DO Work Phone: [facility] 02-10-2015 influenza virus vaccine, unspecified formulation Jourdan ARRIAZA [facility] 02-10-2015 influenza, seasonal, injectable Janneth Itzkowitz DO Work Phone: [facility] 01-14-2014 influenza virus vaccine, unspecified formulation Jourdan ARRIAZA [facility] 01-14-2014 influenza, seasonal, injectable Janneth Itzkowitz DO Work Phone: [facility] 01-23-2013 influenza virus vaccine, unspecified formulation Janneth Itzkowitz DO Work Phone: [facility] Payers Date Payer Category Payer Self-pay 2022 Medicare [employer] MEDICARE A DVANTAGE AETNA MEDICARE REPLACEMENT [id number] 2022-Present [address] [place] [address] [id number] 2002 Private Health Insurance [id number] 1953 Unknown [id number] 2.16.840.1.606636.3.579.2. 727 1953 Unknown [id number] 2..840.1.088948.3.579.2. 1259 1953 Unknown [id number] 2.16.840.1.652178.3.579.2. 1259 1953 Unknown [id number] 2.16.840.1.829662.3.579.2. 1259 1953 Unknown [id number] 2.16.840.1.048514.3.579.2. 1258 1953 Unknown [id number] 2.16.840.1.609995.3.579.2. 1258 1953 Unknown [id number] 2.16.840.1.949929.3.579.2. 1258 1953 Unknown [id number] 2.16.840.1.059790.3.579.2. 1258 1953 Unknown [id number] 2.16.840.1.121276.3.579.2. 1258 1953 Unknown [id number] 2.16.840.1.664865.3.579.2. 1258 1953 Unknown [id number] 2.16.840.1.343191.3.579.2. 1258 1953 Unknown [id number] 2..840.1.260499.3.579.2. 1258 1953 Unknown [id number] 2.16.840.1.444372.3.579.2. 1258 1953 Unknown [id number] 2.16.840.1.163028.3.579.2. 1258 1953 Unknown [id number] 2.16.840.1.448458.3.579.2. 1258 1953 Unknown [id number] 2.16.840.1.041681.3.579.2. 1258 1953 Unknown [id number] 2.16.840.1.154000.3.579.2. 1259 Unknown [id number] 2.16.840.1.606443.3.579.2. 531 Unknown [id number] 2.16.840.1.319631.3.579.2. 531 Unknown [id number] 2.16.840.1.832896.3.579.2. 531 Unknown [id number] 2.16.840.1.696548.3.579.2. 531 Unknown [id number] 2.16.840.1.451202.3.579.2. 531 Unknown [id number] 2.16.840.1.513703.3.579.2. 531 Unknown [id number] 2.16.840.1.894886.3.579.2. 531 Unknown [id number] 2.16.840.1.235507.3.579.2. 531 Social History Date Type Detail Facility Start: 09-21-2022 End: 06-13-2023 Tobacco smoking status NHIS Ex-smoker (finding) [facility] Start: 1955 Sex Assigned At Male F [facility] Start: 05-18-2023 End: 05-31-2023 Sex Assigned At [facility] End: 04-17-1989 History of tobacco use Current smoker [facility] End: 04-17-1989 History of tobacco use Cigarette Smoker [facility] Start: 11-17-2022 Tobacco use and exposure Smokeless tobacco non-user [facility] Start: 05-18-2023 End: 05-31-2023 History of Social function [facility] Start: 1955 Sex Assigned At Not on file N [facility] Tobacco smoking status No Smokin g Status Entered [facility] [place] Goals Date Patient Goal Desired Activity /State Clinical Notes 09-21-2022 to 11-27-2023 Janneth Villegas, DO - 05/31/2023 3:15 PM ESTFredbarb Villegas, DO - 05/18/2023 2:00 PM EST Note Date & Type Note Facility 11-27-2023 Note Patient: Charles hernandez Procedure Summary Date: 11/27/23 Room / Location: [facility] [place] Anesthesia Start: 1041 Anesthesia Stop: 1107 Procedure: EGD Diagnosis: Alcoholic [...] per anesthesia protocol. No notable events documented. [facility] 11-27-2023 Note Patient: Charles hernandez Procedure Summary Date: 11/27/23 Room / Location: [facility] Anesthesia Start: 1041 Anesthesia Stop: Procedure: EGD Diagnosis: Alcoholic cirrhosis of liver with ascites (CMS/HCC) Scheduled Providers: Irena Johnson MD; Jl Kent MD; VALDEMAR Heath Responsible Provider: Jl Kent MD Anesthesia Type: MAC ASA Status: 3 Anesthesia Post [facility] Patient Monitor: direct observation Transport: uneventful Patient condition is: stable [facility] 11-27-2023 Note Patient: Charles hernandez Procedure Information Date/Time: 11/27/23 1130 Scheduled providers: Irena Johnson MD; Jl Kent MD; VALDEMAR Heath Procedure: EGD Location: [facility] Relevant Problems Cardio Denies chest pain/SOB (+) [...] Plan discussed with CAA. Additional Equipment Requests [facility] 11-08-2023 Note Refills provided [facility] 10-16-2023 Note Emma MALDONADO approved through 04/10/2024, previous approval. Pt has not been on lactulose, prescribed lactulose on the same day as Xifaxan. Based on discussion with annual income for 2 people in the household is $52,000. Should qualify for PAP. Will email provider and pt portions. Carmella Olivo, PharmD, BCACP 10/16/23 1:56 PM [facility] [phone] [facility] 10-16-2023 Note Patient assistance a pplication approved through [facility]. Approval good through 04/16/2024. Patient Case ID/Approval Number: [id number]. Notified patient and will follow up to confirm shipment/delivery is scheduled. Yamini Camarillo, [facility] 10/23/23 10:11 AM [facility] 10-16-2023 Note Patient said the del george has been scheduled and is on its way. Aware they have to call [facility] every time they need a refill. Have no further questions. Will no longer follow up. Darnlel Razo [facility] 10/25/23 10:27 AM [facility] 10-16-2023 Note Have received pt. Po rtion of PAP form still waiting on prescribers portion. Re faxed the forms over to GI. Send PAP forms in once prescribers portion is signed. Darnell Razo [facility] 10/20/23 1:20 PM [facility] 10-13-2023 Note I called and discuss ed the results of his labwork with the patient. With his sodium level being slightly below baseline, we will have him repeat his labs prior to EGD tomorrow. He expressed clear understanding. If he continues to have low sodium, we may need to consider holding diuretics. [facility] 10-13-2023 Note Attestation signed by Irena [...] documentation in this note for specific details. [facility] Gastroenterology Follow-up visit CHIEF COMPLAINT Chief Complaint [...] function of stomach (more content not included)... [facility] 09-14-[address] ordered to rule o ut chronic mesenteric ischemia [facility] 08-07-2023 Note Attestation signed by Arias Jesus MD at 08/07/2023 2:45 PM I personally saw the patient with the fellow, I performed/participated in the critical/david portions of the service, I was directly involved in the management and treatment plan of the patient. I discussed the case management with the fellow and agree with the findings and plan as documented by the fellow. [facility] Gastroenterology New Patient Visit - History & [...] % gel, Apply topically., Disp: , Rfl: iyylmjkga-ewmqkz-jqgbrn-petrol 5-0.25-14.4-15 % cream, APPLY TO AFFECTED AREA [...] Rfl: zolpidem (A (more content not included)... [facility] 05-31-2023 History of Present illness Narrative Images from the original note were not included. Charles Blandon 1955 Charles Blandon is a 67 y.o. male presents with chief complaint of pain increasingly worse and wants to discuss surgery (Anal fissure) HPI: HPI Huber states the medication is not helping and [...] has been scheduled. documented in this encounter [facility] 05-18-2023 History of Present illness Narrative Images from the original note were not included. Charles Blandon 1955 Charles Blandon is a 67 y.o. male presents with chief complaint of painful hemorrhoid HPI: HPI Huber states he has a hemorrhoid for the last 5-6 weeks. He was seen by Dr. Carroll's MANDREL PULLER who referred him to our office. Huber [...] weeks for recheck documented in this encounter [facility] 05-11-2023 Evaluation note Encounter Date Diagnosis Assessment Notes Apr, Nausea (ICD-10 - R11.0) Apr, Cirrhosis of liver (ICD-10 - K74.60) Apr, Early satiety (ICD-10 - R68.81) LOC[facility]ALL Other 12-28-2023 Evaluation note* Encounter Date Diagnosis Assessment Notes Treatment Notes Treatment Clinical Notes Mar, Lower abdominal pain (ICD-10 - R10.30) LOC[facility]ALL Other 12-27-2023 Evaluation note* Encounter Date Diagnosis [...] - R68.81) Mar, Bloating (ICD-10 - R14.0) [facility] Other 07-27-2023 Evaluation note* Encounter Date Diagnosis [...] a time. Pt advised to start probiotic (iDubba) Pt RTO 3 MONTHS [facility] Other [facility] No data available for this section [facility] [place] Evaluation noteNo assessment information available [facility] Work Phone: Evaluation noteNo InformationNort Task[employer], [employer] Other Evaluation note* Diagnosis Fissure in ano Anal fissure [facility] Diagnosis Fissure in ano- Primary Anal fissure documented in [facility] encounter [facility]* Diagnosis Onset Date Resolution Status Cirrhosis acute Dyspepsia and disorder of function of stomach acute Emesis acute Esophageal dysmotility acute [facility] Work Phone: History and physical note Author Lex Carroll [facility] September 21, 2022 8:04am Note Date/Time September 21, 2022 8:04a m [facility] [address] [place] [address] Gastroenterology H&P Signed Patient: Charles Blandon MR#: [id number] : 1955 Acct:[id number] Age/Sex: 67 / M Adm Date: 3 Loc: Room: Type: [facility] Attending Dr: Lex Carroll MD Copies [...] signed by Lex Carroll MD> 09/21/22 0804 [facility] Work Phone: History general Narrative - Reported* Type Description Date Medical History hypertension Medical History GERD Surgical History gallbladder Surgical History elbow surgery Surgical History mesh placement LOC[facility]ALL Other Hospital Discharge instructions Additional Instructions DISCHARGE [...] Do NOT operate machinery such as power [employer], lawn mowers, snow blowers, sewing machines, etc. [...] problems. -Follow up with PCP. -Office number [phone].[facility] Work Phone: Hospital Discharge instructions No data available for this section [facility] Progress note No data available for this section [facility] Summary Purpose Family History No Family [...] member Hypertension Unknown mother Unknown Advance Directives No Advanced Directives Records [...] section and content) DATE CREATED AUTHOR 10/10/2017 [facility] DATE CREATED AUTHOR AUTHOR'S ORGANIZ ATION 07/14/2023 [facility] DATE CREATED AUTHOR AUTHOR'S ORGANIZ ATION 12/15/2023 [facility] DATE CREATED AUTHOR AUTHOR'S ORGANIZ ATION 12/15/2023 [facility] EPIC DATE CREATED AUTHOR AUTHOR'S ORGANIZ ATION 12/18/[address] 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 Relationship Specialty Start Date End Date Rusty Delgado MD [address] [facility] [address] [place] [address] PCP - [employer] 04/17/22 Rusty Delgado MD [address] [facility] [address] [place] [address] PCP - General Internal Medicine 11/23/22 Team [...] December 12, 2023 End: December 12, 2023 Team Status: Inactive Member Role Status Rosa Delgado II MD Primary Care Provider Active Start: December 08, 2023 End: December 08, 2023 Devyn ANDRADE DO Attending Provider Active Start: December 08, 2023 End: December 08, 2023 REASON FOR VISIT (unrecogniz ed section and content) Reason Comments painful hemorrhoid Specialty Diagnoses / Procedures Referred By Rogelio t Referred To Contact General Surgery Diagnoses Unspecified hemorrhoids Procedures [place] OFFICE/OUTPATIENT [facility] 60 MINUTES Lorna Ortega MD [address] [facility] [address] [place] [address] [facility] [address] [facility] [address] [place] [address] Referral ID Status Reason Start Date Expiration Date V isits Requested Visits Authorized [id number] Closed Specialty Services Required 05/12/2023 11/08/2023 1 [...] BE BASED ON THE PRIMARY CLINICAL RECORDS. [facility] provides no warranty or guarantee of the accuracy or completeness of information in this document.
--- NOTE | 2023-12-20 14:47 | CA_ITS ---
Patient Name: LOYD BLANDON MR#: [id number] : 1955 Exam Date: 12/20/2023 Ordering Doctor: DR FABY MALDONADO ECHOCARDIOGRAM REPORT PROCEDURE: CA ECHO DOPPLER COMPLETE INDICATIONS: QUESADA, Ascites, R/O valvular abnormalities or LVH COMPARISON: None. DESCRIPTION: COMPLETE ECHOCARDIOGRAM Real-time transthoracic echocardiography with 2D, M-mode, spectral and color flow Doppler performed. QUALITY: Technical quality was good. LEFT VENTRICLE: Normal chamber size. Normal left ventricular wall thickness. Normal systolic function. No wall motion abnormalities. LV EF: 65-70% DIASTOLIC: Normal ATRIAL SEPTUM: Appears intact LEFT ATRIUM: Normal chamber size RIGHT ATRIUM: Mild dilatation. RIGHT VENTRICLE: Normal chamber size. Normal right ventricular systolic function. TRICUSPID VALVE: Normal mobility and thickness. No stenosis with trivial regurgitation. No evidence of pulmonary hypertension. RVSP 31mmHg MITRAL VALVE: Normal mobility and thickness. No evidence of mitral valve stenosis. There is no mitral annular calcification. Trivial mitral regurgitation. AORTIC VALVE: Normal trileaflet appearance. Thickened aortic valve. Normal leaflet mobility. No evidence of aortic valve stenosis. No aortic regurgitation. AORTIC ROOT: Slightly dilated 3.8 cm. Normal ascendind aorta size PULMONIC VALVE: Grossly normal. No stenosis. No regurgitation. PERICARDIUM: No evidence of pericardial effusion. Ascites noted IVC: Collapes with inspirations. Normal size. PLEURA: CONCLUSION: LEFT VENTRICLE: Normal chamber size. Normal left ventricular wall thickness. Normal systolic function. No wall motion abnormalities. LVEF 65-70%.Normal diastolic function Slightly dilated aortic root 3.8 cm. Ascites noted No significant valvular abnormalities Adult Echocardiography Procedure Report Left Ventricle LVEDD (3.7 - 5.6 cm): 4.52 cm LVESD (2.2 - 4.0 cm): 3.32 cm LVIVS thickness (0.6 - 1.2 cm): 1.15 cm LVPW thickness (0.5 - 1.0 cm): 0.99 cm e': 0.08 m/s E - e': 9.12 LVOT Max Gradient: 4.84 mm[Hg], 4.99 mm[Hg] LVOT Area (cm2): 1.11 m/s Peak Velocity (LVOT): 1.10 m/s, 1.12 m/s Mean Velocity (LVOT): 0.66 m/s LVOT Diameter 1.98 cm Left Ventricular Ejection Fraction: 76.08 % Left Atrium LA Volume Index (2D A2C): 25.01 ml/m2 Left Atrium Systolic Dimension: 2.63 cm Mitral Valve MV E to A Ratio: 1.15 MV Max Gradient: MV Mean Gradient: Mitral Valve A-Wave Peak Velocity: 0.62 m/s Mitral Valve E-Wave Peak Velocity: 0.72 m/s Cardiovascular Orifice Area: Right Ventricle RV Internal Diastolic Dimension: 3.02 cm Aorta AO Root Diam: 3.81 cm Ascending Ao Diam: 3.08 cm Aortic Valve AoV Area (Peak Flex): 3.42 cm2, 3.45 cm2, 3.39 cm2 AoV Area (VTI): 3.77 cm2, 3.49 cm2, 4.08 cm2 Deceleration [place]: Pressure Half-Time: Peak Velocity(Antegrade Flow): 0.98 m/s, 1.01 m/s Peak Gradient(Antegrade Flow): 3.85 mm[Hg], 4.10 mm[Hg] Mean Velocity(Antegrade Flow): 0.69 m/s, 0.65 m/s Mean Gradient(Antegrade Flow): 2.09 mm[Hg], 1.89 mm[Hg] Velocity Time Integral: 18.97 cm, 16.82 cm Tricuspid Valve Peak Velocity (Regurgitant Flow): 2.42 m/s, 2.18 m/s, 2.63 m/s Peak Velocity: Pulmonic Valve Mean Gradient: 1.18 mm[Hg], 1.02 mm[Hg], 1.78 mm[Hg] Mean Velocity: 0.51 m/s, 0.46 m/s, 0.62 m/s Peak Velocity: 0.78 m/s Peak Gradient: 2.15 mm[Hg], 1.97 mm[Hg], 3.32 mm[Hg] Right Atrium Right Atrium Systolic Pressure: 27.38 ml, 27.38 ml Dictated by: Siena Herrera MD on 12/20/2023 at 17:08 Approved by: Siena Herrera MD on 12/20/2023 at 17:20
== END 2023-12-20 14:21 | disposition home or self-care (01) ==
LOC: CARD 14:21
PROVIDERS: PCP Internal Medicine; Visit Provider Physician Assistant
DX: R42 Dizziness and giddiness (principal); K74.60 Unspecified cirrhosis of liver; R18.8 Other ascites; R06.09 Other forms of dyspnea
CPT/HCPCS: 93306

== ENCOUNTER 2023-12-20 14:22 | Outpatient (OUT) | payer MEDICARE, SELFPAY ==
--- OUTSIDE RECORDS SUMMARY | 2023-12-20 14:31 | XMS_ITS | CCD ---
Author Organization [facility] Care Team Providers Care Shield Installer Name Role Phone CHEMA, TANISHA Unavailable Unavailable TEODORA, ROYCE Unavailable Unavailable CHEMA, TANISHA Unavailable Unavailable COY BLANCHARD Unavailable Unavailable CHEMA, TANISHA Unavailable Unavailable CHEMA, TANISHA Unavailable Unavailable CHEMA, TANISHA Unavailable Unavailable MD Lex Carroll Attending Provider JUDITH Delgado Primary Care Provider [phone] Lorna Ortega Unavailable TALA Ortega Attending Provider [...] Care Provider MD Ward Stern Attending Provider [phone] [facility]ending Provider [facility], DO Shepard Attending Provider Ward Stern Admitting Unavailable Ward Stern Attending Unavailable Rusty Delgado Primary Care Unavailable [facility], Devyn Admitting Unavailable [facility], Devyn Attending Unavailable Rusty Delgado Primary Care Unavailable Rusty Delgado Primary Care Unavailable ScovannerLorna Admitting Unavailable ScovannerLorna Attending Unavailable Rusty Delgado Primary Care Unavailable ScovannerLorna M Admitting Unavailable ScovannerLorna M Attending Unavailable Rusty Delgado Primary Care Unavailable Itzkowitz, Janneth Admitting Unavailable Itzkobernicetz, Janneth Attending Unavailable Rusty Delgado Primary Care Unavailable Minh Griffith Admitting Unavailabl e Minh Griffith Attending Unavailabl e Rusty Delgado Primary Care Unavailable Itzkojonathan, Janneth Attending Unavailable Itzkobernicetz, Janneth Admitting Unavailable Rusty Delgado Primary Care Unavailable Ward Stern Admitting Unavailable Ward Stern Attending Unavailable [facility], DO Shepard Attending Provider BAKARI, JANNETH H Attending Unavailable LORNA ORTEGA Referring Unavailable ITZKOBERNICETZ, JANNETH H Attending Unavailable ITZCATALINA, JANNETH H Attending Unavailable ITZCATALINA, JANNETH H Attending Unavailable FABY ECHEVARRIA Attending Unavailable ISAIAS, WARD Attending Unavailable FABY ECHEAVRRIA Referring Unavailable BENEDICT, WARD Referring Unavailable CALVINCTWARD [...] Translations: [SULFAMETHOXAZOLE-TR IMETHOPRIM] Drug Allergy 5 AOF [facility] Repository Medications Current Medications Medication Drug Class(es) [...] June 13, 2023 July 05, 2023 9:01am algztje-chxcljcxr-aomj 333-133-5 MG per tablet (1 source) End: 05-18-2023 calcium-magnesium -zinc 333-133-5 MG per tablet Take 1 tablet by mouth in the morning and 1 tablet at noon and 1 tablet in the evening. Take with meals. 0 05/18/2023 Discontinued hydroCHLOROthiazide 25 mg / triamterene 37.5 mg oral capsule (18 sources) Potassium-spari ng Diuretic, Thiazide Diuretic Start: 06-13-2023 End: 07-05-2023 Triamterene-Clark chlorothiazid Discontinued CAP June 13, 2023 1:00am [...] Interpretation Reference Range Facility 36on 12-14-2023 36 Equipment Coordinator faxed lab ord ers to [facility]. [facility] 36 ----- Message from Serena Hazel MD sent at 12/14/2023 1:36 PM EDT ----- Petra, I sent over a prescription for his diuretics and recommended that they have repeat CMP next week. The order has been placed, can you please fax this to [facility] so that they can get them done next week? Thank you so much ----- Message ----- From: Rachel Doan MA Sent: 12/13/2023 1:35 PM EDT To: Gibson Hazel MD A new document has been added to this order with description CMP results [facility]. [facility] 36 Patient's saucedo d last week asking [...] assess his diuretics further at that time. [facility] Orders Onlyon 12-14-2023 Orders Only [id number] Ambrosio Blandon 1955 M Date Provider Department Center 12/14/202389320-DDJAJGIBSON HAZEL [facility] No family history on file [facility] Telephoneon 12-14-2023 Telephone [id number] Ambrosio Blandon 1955 M Date Provider Department Center 12/14/202304478-JZMGGGIBSON ESPOSITO [facility] No family history on file [facility] Orders Onlyon 12-13-2023 Orders Only [id number] Ambrosio Blandon 1955 M Date Provider Department Center 12/13/2023 [id number]-[id number], HISTORICAL MP [facility] No family history on file [facility] 36on 12-11-2023 36 Patient's repor ts that [...] an appointment in hepatology clinic on 12/27/2023. [facility] 36 of patient call s today stating that when they went for paracentesis at [place] last week - the patient was admitted. [...] clinic visit with Dr. Johnson on 12/27/2023. [facility] Orders Onlyon 12-11-2023 Orders Only [id number] Ambrosio Blandon 1955 M Date Provider Department Center 12/11/202336108-TCRENGIBSON TAYLOR [facility] Medical Pavi No family history on file [facility] Telephoneon 12-11-2023 Telephone [id number] Ambrosio Blandon 1955 M Date Provider Department Center 12/11/202396067-YCXXDGIBSON HAZEL [facility] Medical Pavi No family history on file [facility] Mayito 12-08-2023 L Specimen: [id number] Received: 12/11/23 Status: HUSAM Mirclarence Num: [id number] Spec Type: Cytology Subm Dr: Devyn Winter DO Tissues: A PLEURAL FLUID (PLEUR) Procedures: HE/2, Gross/Micro L4, Cyto Prepstain, PAPSTN Age/ Patient Sex Location Account Attending Physician Charles Blandon 68/M LABELL [id number] Devyn Winter DO SPEC NUM: [id number] RECD: 12/11/23 STATUS: HUSAM COFFEY NUM: [id number] WEN: 12/08/[address] [facility] [address]: Devyn Winter DO ENTERED: 12/11/[address]: Babs,Lab SPEC TYPE: Cytology DEPT: [facility] ENTERED BY: [id number] RECV BY: [id number] ORDERED: HE/2, Gross/Micro L4, Cyto Prepstain, PAPSTN [...] [id number] Received: 12/11/23 Status: SERAEmilie Coffey Num: [id number] Spec Type: Cytology Subm Dr: Devyn Winter DO Tissues: A PLEURAL FLUID (PLEUR) Procedures: HE/2, Gross/Micro L4, Cyto Prepstain, PAPSTN Patient: JamiaCharles [id number] (Continued) Specimen: [id number] Received: 12/11/23 (Continued) Signed (signature on file) Robert-Fabio Duque MD 12/14/23 1503 Specimen: [id number] Received: 12/11/23 Status: HUSAM Estuardo Num: [id number] Spec Type: Cytology Subm Dr: Devyn Winter DO Tissues: A PLEURAL FLUID (PLEUR) Procedures: HE/2, Gross/Micro L4, Cyto Prepstain, PAPSTN Patient: Charles Blandon [id number] (Continued) Specimen: BC Received: 12/11/23 (Continued) CPT Codes 08113 35702 Specimen: BC Received: 12/11/23 Status: HUSAM Coffey Num: [id number] Spec Type: Cytology Subm Dr: Devyn Winter DO Tissues: A PLEURAL FLUID (PLEUR) Procedures: HE/2, Gross/Micro L4, Cyto Prepstain, PAPSTN Patient: Charles Blandon [id number] (Continued) Signed (signature on file) Robert-Fabio Duque MD 12/14/23 1503 Normal [facility] 36on 12-01-[address] Hazel in clinic, order placed and faxed to [facility] at [phone] [facility] 36 calls stating t hat patient is in need of an order for paracentesis. Order will need to be sent to [facility]. Normal [facility] Orders Onlyon 12-01-2023 Orders Only [id number] Ambrosio Blandon 1955 M Date Provider Department Center 12/01/202354940-YLNNJGIBSON HAZEL [facility] No family history on file Normal [facility] HPon 11-27-2023 HP ----- ----- Attestation [...] PROT B12/Folate/Iron studies: No results found for: [id number] , FOLATE , IRON , TIBC , UIBC , IRONSAT , FERRITIN ASSESSMENT AND PLAN Charles Blandon is a 68 y.o. male who has a known past medical history significant for alcoholic liver cirrhosis, Recinos's esophagus and hepatic encephalopathy is scheduled today for an EGD for esophageal varices screening. Plan: Plan for EGD today for esophageal varices secondary to liver cirrhosis. Normal [facility] POCT GLUCOSE METER UNSOLICIT ED RESULTSon 11-27-2023 Glucose [Mass/Vol] 101 mg/dL Normal 70-105 [facility] Comment on above: Order Comment: Waive d Testing in the ED is performed under the ED CLIA certificate #[id number]. Result Comment: jhag eman Performed By: #### L [id number] #### [facility] (BEAKER) [address] [place] [address] 36on 11-21-2023 36 Appeal submitted Normal [facility] Orders Onlyon 11-21-2023 Orders Only [id number] Ambrosio Blandon 1955 M Date Provider Department Center 11/21/2023 BROOKLYNN ZEPEDA MP [facility] No family history on file Normal [facility] Prep for Procedureon 024 Prep for Procedure [id number] Ambrosio Blandon 1955 M Date Provider Department Center 11/21/2023 [facility]T [facility] No family history on file Normal [facility] MR ABDOMEN W AND WO CONTRAST [...] signed: Adalid Montiel. [address] [facility] Orders Onlyon 11-08-2023 Orders Only [id number] Ambrosio Blandon 1955 M Date Provider Department Center 11/08/2023 [id number], BROOKLYNN MP [facility] Medical [facility] No family history on file [facility] 36on 11-02-2023 36 Patient's carmen jolynn to verify that Dr. Jesus will now be prescribing the Famotidine and Baclofen because the previously prescribing physician no longer will now that he is a [facility] GI patient. The preferred pharmacy is [facility] in [place]. Please advise and these orders can then be pended. [facility] Orders Onlyon 11-02-2023 Orders Only [id number] Ambrosio Blandon 1955 M Date Provider Department Center 11/02/2023 [id number]-QMTLRHTY, HISTORICAL [facility] No family history on file [facility] 3610-26-2023 36 I called the patient [...] MRI of his liver on the . [facility] Orders Onlyon 10-26-2023 Orders Only [id number] Ambrosio Blandon 1955 M Date Provider Department Center 10/26/202315421-TKKYKGIBSON ESPOSITO [facility] No family history on file [facility] Telephoneon 10-26-2023 Telephone [id number] Ambrosio Blandon 1955 M Date Provider Department Center 10/26/202300948-BSOHJGIBSON HAZEL [facility] No family history on file [facility] Orders Onlyon 10-24-2023 Orders Only [id number] Ambrosio Blandon 1955 M Date Provider Department Center 10/24/2023 [id number]-[id number], HISTORICAL MP GI Medical [facility] No family history on file [facility] Orders Onlyon 10-20-2023 Orders Only [id number] Ambrosio Blandon emma 1955 M Date Provider Department Center 10/20/2023 Olinda-RUFINO MATHUR [facility] No family history on file [facility] 36on 10-18-2023 36 I called the [...] we can follow-up on his sodium level. [facility] 36 Patients called stating they were [...] back from you to clarify some things. [facility] Orders Onlyon 10-18-2023 Orders Only [id number] Ambrosio Blandon 1955 M Date Provider Department Center 10/18/20232030-EKATERINA ALMODOVAR [facility] No family history on file Normal [facility] Telephoneon 10-18-2023 Telephone [id number] Ambrosio Blandon 1955 M Date Provider Department Center 10/18/202304527-OOSGSGIBSON HAZEL MP GI Medical [facility]avi No family history on file Normal [facility] Orders Onlyon 10-17-2023 Orders Only [id number] Ambrosio Blandon 1955 M Date Provider Department Center 10/17/202352055-AKIMFGIBSON HAZEL MP [facility] No family history on file Normal [facility] Documentationon 10-16-2023 Documentation [id number] Ambrosio Blandon 1955 M Date Provider Department Center 10/16/2023 CARMELLA NICOLE MP [facility] No family history on file Reason for Visit and Comments: Specialty Pharmacy Note: Xifaxan PAP [Other] Normal [facility] Prep for Procedureon 024 Prep for Procedure [id number] Ambrosio Blandon 1955 M Date Provider Department Center 10/16/2023 Vahid-IRENA JOHNSON [facility] No family history on file Normal [facility] BASIC METABOLIC PANELon 09-16 Anion gap [Moles/Vol] 14 mmol/L Normal 7-20 [facility] Comment on above: Performed By: #### L AB15 #### [facility] ([facility]) [address] [place] [address] Calcium [Mass/Vol] 9.1 mg/dL Normal 8.6-10.3 [facility] Comment on above: Performed By: #### L AB15 #### [facility] ([facility]AKER) [address] [place] [address] Chloride [Moles/Vol] 96 mmol/L Low 98-107 [facility] Comment on above: Performed By: #### L AB15 #### [facility] ([facility]AKER) [address] [place] [address] CO2 [Moles/Vol] 22 mmol/L Normal 21-31 [facility] Comment on above: Performed By: #### L AB15 #### [facility] ([facility]) [address] [place] [address] Creatinine [Mass/Vol] 1.00 mg/dL Normal 0.70-1.30 [facility] Comment on above: Performed By: #### L AB15 #### [facility] ([facility]) [address] [place] [address] GLOMERULAR FILTRATION RATE ML/MIN/1.73 SQ M.PREDICTED 81.0 mL/min/1.73m*2 Normal >60.0 [facility] Comment on above: Result Comment: The [facility]???s estimated glomerular filtration rate (eGFR) will [...] individuals. Performed By: #### L AB15 #### [facility] ([facility]) [address] [place] [address] Glucose [Mass/Vol] 108 mg/dL High 70-100 [facility] Comment on above: Performed By: #### L AB15 #### [facility] ([facility]) [address] [place] [address] Potassium [Moles/Vol] 4.8 mmol/L Normal 3.5-5.1 [facility] Comment on above: Performed By: #### L AB15 #### [facility] ([facility]) [address] [place] [address] Sodium [Moles/Vol] 127 mmol/L Low 136-145 [facility] Comment on above: Performed By: #### L [id number] #### [facility] ([facility] [address] [place] [address] Urea nitrogen [Mass/Vol] 13 mg/dL Normal 7-25 [facility] Comment on above: Performed By: #### L AB15 #### [facility] ([facility] [address] [place] [address] UREA NITROGEN/CREATININE (MASS RATIO) IN SER/PLAS 13.[address] [facility] Comment on above: Performed By: #### L AB15 #### [facility] ([facility] [address] [place] [address] CBCon 10-13-2023 Erythrocyte distribution width (RBC) [Ratio] 14.2 % Normal 11.5-15.0 [facility] Comment on above: Performed By: #### L [id number] ####[facility] ([facility])[address] [place] [address] ERYTHROCYTE MEAN CORPUSCULAR HEMOGLOBIN CONCENTRATION (G/DL) BY AUTOMATED 34.5 g/dL Normal 32.0-35.0 [facility] Comment on above: Performed By: #### L [id number] ####[facility] ([facility])[address] [place] [address] Hematocrit (Bld) [Volume fraction] 38.0 % Low 39.0-55.0 [facility] Comment on above: Performed By: #### L [id number] ####[facility] ([facility] [place] [address] Hemoglobin (Bld) [Mass/Vol] 13.1 g/dL Normal 13.0-17.0 [facility] Comment on above: Performed By: #### L [id number] ####[facility] ([facility] [place] [address] MCH (RBC) [Entitic mass] 34.4 pg High 27.0-33.0 [facility] Comment on above: Performed By: #### L [id number] ####[facility] ([facility] [place] [address] MCV (RBC) [Entitic vol] 99.7 fL High 82.0-98.0 [facility] Comment on above: Performed By: #### L [id number] ####[facility] ([facility])[address] [place] [address] PLATELETS (10*3/UL) IN BLOOD AUTOMATED COUNT 212 10*3/uL Normal 150-400 [facility] Comment on above: Performed By: #### L [id number] ####[facility] ([facility])[address] [place] [address] RBC (Bld) [#/Vol] 3.81 10*6/uL Low 4.20-5.70 [facility] Comment on above: Performed By: #### L [id number] ####[facility] ([facility])[address] [place] [address] WBC (Bld) [#/Vol] 6.20 10*3/uL Normal 4.00-10.60 [facility] Comment on above: Performed By: #### L [id number] ####[facility] ([facility])[address] [place] [address] HEPATIC FUNCTION PANELon Albumin [Mass/Vol] 3.4 g/dL Low 3.5-5.7 [facility] Comment on above: Performed By: #### L AB20 #### [facility] ([facility]) [address] [place] [address] ALP [Catalytic activity/Vol] 114 U/L High 34-104 [facility] Comment on above: Performed By: #### L AB20 #### [facility] ([facility]) [address] [place] [address] ALT [Catalytic activity/Vol] 23 U/L Normal 7-52 [facility] Comment on above: Performed By: #### L [id number] #### [facility] ([facility]) [address] [place] [address] AST [Catalytic activity/Vol] 48 U/L High 13-39 [facility] Comment on above: Performed By: #### L AB20 #### [facility] ([facility]) [address] [place] [address] Bilirubin [Mass/Vol] 1.5 mg/dL High 0.3-1.0 [facility] Comment on above: Performed By: #### L [id number] #### [facility] ([facility]) [address] [place] [address] Magnesium [Mass/Vol] 0.5 mg/dL High 0-0.2 [facility] Comment on above: Performed By: #### L [id number] #### [facility] ([facility] [address] [place] [address] Protein [Mass/Vol] 7.8 g/dL Normal 6.0-8.3 [facility] Comment on above: Performed By: #### L AB20 #### [facility] ([facility]) [address] [place] [address] Labon 10-13-2023 Lab [id number] Ambrosio Blandon 1955 M [facility] Provider Department [place] 10/13/2023 2244-[facility] MP LAB RESOURCE MP DRAW Medical Pavi No family history on file Normal [facility] Office Visiton 10-13-2023 Follow-up visit [id number] Ambrosio Blandon 1955 M [facility] Provider Department [place] 10/13/2023 298-IRENA JOHNSON GI Medical [facility]avi No family history on file Level of Service:62709 [place] OFFICE/OUTPATIENT ESTABLISHED HIGH MDM 40 MIN () Reason for Visit and Comments: Cirrhosis [239] Ascites [295] Normal [facility] PROTIME-INRon 10-13-2023 INR IN PPP BY COAGULATION ASSAY 1.17 High 0.90-1.10 [facility] Comment on above: Result Comment: ACCC [...] 1995;108:231S-246S. Performed By: #### L [id number] #### [facility] ([email or web address]) [address] [place] [address] PROTHROMBIN TIME (PT) IN PPP BY COAGULATION ASSAY 14.9 Seconds High 12.3-14.8 [facility] Comment on above: Performed By: #### L [id number] #### [facility] ([facility]) [address] [place] [address] Orders Onlyon 10-06-2023 Orders Only [id number] Ambrosio Blandon 1955 M Date Provider Department Center 10/06/2023 [id number], HISTORICAL MP GI Medical Pavi No family history on file Normal [facility] Mayito 10-03-2023 L Specimen: [id number] Received: 10/04/23 Status: HUSAM Coffey Num: [id number] Spec Type: Cytology Subm Dr: Arias Jesus MD Tissues: A ASCITES (ASC) Procedures: HE/2, Gross/Micro L4, Cyto Prepstain, PAPSTN Age/ Patient Sex Location Account Attending Physician Charles Blandon 68/M LABELL [id number] Ward Stern MD SPEC NUM: [id number] RECD: 10/04/23 STATUS: HUSAM COFFEY NUM: [id number] WEN: 10/03/23-[address]: Arias Jesus MD ENTERED: 10/04/[address] [facility] [address]: Babs,Lab Ward Stern MD SPEC TYPE: Cytology DEPT: [facility] ENTERED BY: [id number] RECV BY: [id number] ORDERED: HE/2, Gross/Micro L4, Cyto Prepstain, PAPSTN ORDERED: HE/2, Gross/Micro L4, Cyto Prepstain, PAPSTN Pathological Diagnosis Ascites fluid cytology: Atypical cells noted. Clinical Information cirrhosis, liver lesion Gross Description Received is 1000 ml yellow cloudy unfixed fluid for cytology said to have been obtained as abdominal ascites fluid. ThinPrep and cell block preparations are prepared for microscopic examination. (IA/ak) CPT Codes 79240 Specimen: [id number] Received: 10/04/23 Status: HUSAM Coffey Num: [id number] Spec Type: Cytology Subm Dr: Arias Jesus MD Tissues: A ASCITES (ASC) Procedures: HE/2, Gross/Micro L4, Cyto Prepstain, PAPSTN Patient: Charles Blandon [id number] (Continued) Signed (signature on file) Linette Bean MD 10/05/23 1340 Normal The Replaced By [facility] Orders Onlyon 09-27-2023 Orders Only [id number] Ambrosio Blandon 1955 M Date Provider Department Center 09/27/2023 204-HARSHA CONNER [facility] No family history on file Normal [facility] CREATININE, SERUMon 09-25-19 24 Creatinine [Mass/Vol] 1.06 mg/dL Normal 0.70-1.30 [facility] Comment on above: Performed By: #### L [id number] #### [facility] ([email or web address]) [address] [place] [address] GLOMERULAR FILTRATION RATE ML/MIN/1.73 SQ M.PREDICTED 75.5 mL/min/1.73m*2 Normal >60.0 [facility] Comment on above: Result Comment: The [facility]???s estimated glomerular filtration rate (eGFR) will [...] individuals. Performed By: #### L [id number] #### [facility] ([email or web address]) [address] [place] [address] CTA ABDOMEN PELVIS W IV CONT Hailey [...] Gan MD. Not Vldtd Invalid Interpretation Code [facility] Labon 09-25-2023 Lab [id number] Jamia,Ambrosio emma 1955 M Date Provider Department Center 09/25/2023 2245-[facility] OPD LAB RESOURCE [facility] OPD PR Medical C No family history on file Normal [facility] Orders Onlyon 09-23-2023 Orders Only [id number] Jamia,Ambrosio emma 1955 M Date Provider Department Center 09/23/2023 204-HARSHA CONNER [facility] GI [facility] No family history on file Normal [facility] Orders Onlyon 09-15-2023 Orders Only [id number] Jamia,Ambrosio emma 1955 M Date Provider Department Center 09/15/2023 [id number]-DKWTYYBROOKLYNN SINGH MP GI Medical [facility]avi No family history on file Normal [facility] Orders Onlyon 09-14-2023 Orders Only [id number] Jamia,Ambrosio emma 1955 M Date Provider Department Center 09/14/2023 52533-OXLKNGBROOKLYNN SINGH MP GI Medical [facility] No family history on file Normal [facility] Orders Onlyon 08-28-2023 Orders Only [id number] Jamia,Ambrosio emma 1955 M Date Provider Department Center 08/28/2023 [id number], HISTORICAL MP GI Medical Pavi No family history on file Normal [facility] Orders Onlyon 08-24-2023 Orders Only [id number] Jamia,Ambrosio emma 1955 M Date Provider Department Center 08/24/2023 P3939-ACFMPMPO, HISTORICAL MP GI Medical [facility]avi No family history on file Normal [facility] 08-09-2023 29 Addended by: ARIAS JESUS on: 08/09/2023 12:50 PM Modules accepted: Orders Normal [facility] Orders Onlyon 08-09-2023 Orders Only [id number] Jamia,Ambrosio emma 1955 M Date Provider Department Center 08/09/2023 [id number]-LNKXSHDJASON SANTIZO GI Medical [facility]avi No family history on file Normal [facility] Office Visiton 08-07-2023 Follow-up visit [id number] Ambrosio Blandon 1955 M Date Provider Department Center 08/07/2023 ARIAS DOLL GI Medical [facility]avi No family history on file Level of Service:22877 [place] OFFICE/OUTPATIENT NEW LOW MDM 30 MINUTES (GC) Reason for Visit and Comments: New Patient [632] Weight Loss [728537] - 30 pound weight loss since . Pt recently had surgery for 3 polyps removed and 1 hemorrhoid removal. Dyskenisia of esophgaus [Other] Nausea [70] Vomiting [120] - Pt has a urge to but does not vomit. Normal [facility] [place] 06-13-2023 L Specimen: [id number] Received: 06/14/23 Status: HUSAM Coffey Num: [id number] Spec Type: Surgical Subm Dr: Janneth Villegas DO Tissues: A Hemorrhoids (HEMORRHOID 9:00) Procedures: HE, Gross/Micro L3 Age/ Patient Sex Location Account Attending Physician Charles Blandon 67/M NE [id number] Janneth Villegas DO SPEC NUM: [id number] RECD: 06/14/23 STATUS: HUSAM COFFEY NUM: [id number] WEN: 06/13/[address]: Janneth Villegas DO ENTERED: 06/14/[address] [facility]: SPEC TYPE: Surgical DEPT: S ORDERED: [...] cut surfaces with diffusely dilated blood-filled spaces. Steward/Stewardess Night sections are submitted in 1 cassette as follows: A1 - 1 player services representative section from each fragment to demonstrate change in mucosal types of the largest fragment CPT Codes 04257 Specimen: [id number] Received: 06/14/23 Status: HUSAM Coffey Num: [id number] Spec Type: Surgical Subm Dr: Janneth Villegas DO Tissues: A Hemorrhoids (HEMORRHOID 9:00) Procedures: Clark BARBOSA/Andi L3 Patient: Charles Blandon [id number] (Continued) Signed (signature on file) Linette Bean MD 06/27/23 2239 Normal The Replaced By [facility] Automated basophil %Ordered By: Janneth Villegas on 06-02-2023 Basophils/100 WBC (Bld) 0.7 % Normal . [facility] Comment on above: Performed By: #### B MP, CBC #### [facility] [address] [place] [address] Automated basophil countOrde red By: Janneth Villegas on 06-02-2023 Basophils (Bld) [#/Vol] 0.0 10*3/uL Normal 0.0-0.2 [facility] Comment on above: Result Comment: PERF ORMED BY: [place] [address] PATHOLOGIST REHAB MANAGER CLARK LEARY M.D. Performed By: #### B MP, CBC #### [address] Automated blood monocyte cou ntOrdered By: Janneth Villegas on 06-02-2023 Monocytes (Bld) [#/Vol] 0.9 10*3/uL High 0.0-0.8 [facility] Comment on above: Performed By: #### B MP, CBC #### [facility] [address] [place] [address] Automated eosinophil %Ordere d By: Janneth Villegas on 06-02-2023 Eosinophils/100 WBC (Bld) 1.9 % Normal . [facility] Comment on above: Performed By: #### B MP, CBC #### [facility] [address] [place] [address] Automated eosinophil countOr dered By: Janneth Villegas on 06-02-2023 Eosinophils (Bld) [#/Vol] 0.1 10*3/uL Normal 0.0-0.45 [facility] Comment on above: Performed By: #### B MP, CBC #### [facility] [address] Automated monocyte %Ordered By: Janneth Villegas on 06-02-2023 Monocytes/100 WBC (Bld) 15.7 % Normal . [facility] Comment on above: Performed By: #### B MP, CBC #### [facility] [address] Automated neutrophil %Ordere d By: Janneth Villegas on 06-02-2023 Neutrophils/100 WBC (Bld) 68.5 % Normal . [facility] Comment on above: Performed By: #### B MP, CBC #### [address] Basic Metabolic Panelon 05-18 GFR/1.73 sq M.predicted MDRD (S/P/Bld) [Vol rate/Area] mL/min/{1.73_m2} Normal The Replaced By [facility] Comment on above: Performed By: #### B MP, CBC #### [address] Calcium [Mass/volume] in Ser um or PlasmaOrdered By: Janneth Villegas on 06-02-2023 Calcium [Mass/Vol] 8.6 mg/dL Normal 8.6-10.3 [facility] Comment on above: Result Comment: PERF ORMED BY: [place] [address] PATHOLOGIST REHAB MANAGER CLARK LEARY M.D. Performed By: #### B MP, CBC #### [address] Carbon dioxide, total [Moles /volume] in Serum or PlasmaOrdered By: Janneth Villegas on 06-02-2023 CO2 [Moles/Vol] 27.3 mmol/L Normal 21.0-31.0 [facility] Comment on above: Performed By: #### B MP, CBC #### [place] [address] [place] Chloride [Moles/volume] in S mateo or PlasmaOrdered By: Janneth Villegas on 06-02-2023 Chloride [Moles/Vol] 96 mmol/L Low 98-107 [facility] Comment on above: Performed By: #### B MP, CBC #### [facility] [address] [place] [address] Complete Blood Count Auto Di ffon 06-02-2023 Mean Corpuscular HGB Conc 35.2 g/dL Normal 32.5-35.6 The Replaced By [facility] Comment on above: Performed By: #### B MP, CBC #### [facility] [address] NRBC% 0.1 /100{WBC} Normal 0-0.5 [facility] Comment on above: Performed By: #### B MP, CBC #### [address] Creatinine [Mass/volume] in Serum or PlasmaOrdered By: Janneth Villegas on 06-02-2023 Creatinine [Mass/Vol] 1.07 mg/dL Normal 0.70-1.30 [facility] Comment on above: Performed By: #### B MP, CBC #### [address] ECG 12 lead ECGon 06-02-2023 ECG 12 lead ECG [facility] [place] [address] [place] [address] Electrocardiograph Report Signed Patient: Charles Blandon MR#: [id number] 66 : 1955 Acct:[id number] Age/Sex: 67 / M ADM Date: 06/02/23 Loc: Room: Type: [facility] Attending Dr: Janneth Villegas DO Ordering Provider: [...] previous ECGs available Confirmed by Gurpreet Dyson ([id number]) on 06/02/2023 6:21:10 PM Referred By: DANNY VILLEGAS Electronically Signed By:Gurpreet Dyson Transcribed By: MUS Signed By Gurpreet Dyson MD 06/02/23 1821 Normal The Replaced By [facility] Erythrocyte distribution wid th [Ratio] by Automated countOrdered By: Janneth Villegas on 06-02-2023 Erythrocyte distribution width (RBC) [Ratio] 13.8 % Normal 12.0-14.8 [facility] Comment on above: Performed By: #### B MP, CBC #### [address] Erythrocytes [#/volume] in B lood by Automated countOrdered By: Janneth Villegas on 06-02-2023 RBC (Bld) [#/Vol] 3.45 10*6/uL Low 3.90-5.60 [facility] Comment on above: Performed By: #### B MP, CBC #### [place] [address] [place] Glucose [Mass/volume] in Ser um or PlasmaOrdered By: Janneth Villegas on 06-02-2023 Glucose [Mass/Vol] 132 mg/dL High 70-100 [facility] Comment on above: ADA recommended refe rence rangeRandom Glucose Reference Range is dependent on time and content of last meal. Glucose of more than 200 mg/dL in a nonstressed, ambulatory subject supports the diagnosis of Diabetes Mellitus. Result Comment: Amasa om Glucose Reference Range is dependent on time and content of last meal. Glucose of more than 200 mg/dL in a nonstressed, ambulatory subject supports the diagnosis of Diabetes Mellitus. ADA recommended reference range Performed By: #### B MP, CBC #### [facility] [address] [place] [address] [place] Hematocrit [Volume Fraction] of Blood by Automated countOrdered By: Janneth Villegas on 06-02-2023 Hematocrit (Bld) [Volume fraction] 35.5 % Low 38.8-50.0 [facility] Comment on above: Performed By: #### B MP, CBC #### [address] Hemoglobin [Mass/volume] in BloodOrdered By: Janneth Villegas on 06-02-2023 Hemoglobin (Bld) [Mass/Vol] 12.5 g/dL Low 13.0-17.0 [facility] Comment on above: Performed By: #### B MP, CBC #### [address] Leukocytes [#/volume] correc jamila for nucleated erythrocytes in Blood by Automated counOrdered By: Janneth Villegas on 06-02-2023 WBC corrected for nucl RBC Auto (Bld) [#/Vol] 5.7 10*3/uL 4.1-10.5 [facility] Leukocytes [#/volume] in Blo od by Automated countOrdered By: Janneth Villegas on 06-02-2023 WBC (Bld) [#/Vol] 5.7 10*3/uL Normal 4.1-10.5 [facility] Comment on above: Performed By: #### B MP, CBC #### [place] [address] [place] Lymphocytes [#/volume] in Bl ood by Automated countOrdered By: Janneth Villegas on 06-02-2023 Lymphocytes (Bld) [#/Vol] 0.7 10*3/uL Low 1.00-4.8 [facility] Comment on above: Performed By: #### B MP, CBC #### [address] Lymphocytes/100 leukocytes i n Blood by Automated countOrdered By: Janneth Villegas on 06-02-2023 Lymphocytes/100 WBC (Bld) 13.2 % Normal . [facility] Comment on above: Performed By: #### B MP, CBC #### [facility] [address] [place] [address] MCH [Entitic mass] by Automa jamila countOrdered By: Janneth Villegas on 06-02-2023 MCH (RBC) [Entitic mass] 36.2 pg High 27.5-35.2 [facility] Comment on above: Performed By: #### B MP, CBC #### [facility] [address] [place] [address] MCHC Auto (RBC) [Mass/Vol]Or dered By: Janneth Villegas on 06-02-2023 MCHC (RBC) [Mass/Vol] 35.2 g/dL 32.5-35.6 [facility] MCV [Entitic volume] by Auto mated countOrdered By: Janneth Villegas on 06-02-2023 MCV (RBC) [Entitic vol] 102.9 fL High 83.5-101 [facility] Comment on above: Performed By: #### B BRADLEY, CBC #### [facility] [address] [place] [address] Neutrophils [#/volume] in Bl ood by Automated countOrdered By: Janneth Villegas on 06-02-2023 Neutrophils (Bld) [#/Vol] 3.9 10*3/uL Normal 1.8-7.7 [facility] Comment on above: Performed By: #### B BRADLEY, CBC #### [facility] [address] [place] [address] No Panel InformationOrdered By: Janneth Villegas on 06-02-2023 Estimated GFR (CKD-EPI) > 60.0 mL/Min [facility] Creatinine Clearance (Chem N/A [facility] Nucleated erythrocytes [Pres ence] in Blood by Automated countOrdered By: Janneth Villegas on 06-02-2023 Nucleated RBC Auto Ql (Bld) 0.1 /100{WBC} 0-0.5 [facility] Platelet mean volume [Entiti c volume] in Blood by Automated countOrdered By: Janneth Villegas on 06-02-2023 Platelet mean volume (Bld) [Entitic vol] 8.1 fL Normal 6.6-10.1 [facility] Comment on above: Performed By: #### B MP, CBC #### [address] Platelets [#/volume] in Bloo d by Automated countOrdered By: Janneth Villegas on 06-02-2023 Platelets (Bld) [#/Vol] 153 10*3/uL Normal 150-450 [facility] Comment on above: Performed By: #### B MP, CBC #### [facility] [address] [place] [address] [place] Potassium [Moles/volume] in Serum or PlasmaOrdered By: Janenth Villegas on 06-02-2023 Potassium [Moles/Vol] 4.8 mmol/L Normal 3.5-5.1 [facility] Comment on above: Performed By: #### B MP, CBC #### [address] Serum or plasma anion gap de terminationOrdered By: Janneth Villegas on 06-02-2023 Anion gap [Moles/Vol] 13.5 mmol/L Normal 6.0-15.0 [facility] Comment on above: Performed By: #### B MP, CBC #### [facility] [address] [place] [address] [place] Sodium [Moles/volume] in Ser um or PlasmaOrdered By: Janneth Villegas on 06-02-2023 Sodium [Moles/Vol] 132 mmol/L Low 136-145 [facility] Comment on above: Performed By: #### B MP, CBC #### [place] [address] [place] Urea nitrogen [Mass/volume] in Serum or PlasmaOrdered By: Janneth Villegas on 06-02-2023 Urea nitrogen [Mass/Vol] 12 mg/dL Normal 7-25 [facility] Comment on above: Performed By: #### B MP, CBC #### [facility] [address] gastric emptying studyon 04-26-2023 [place] gastric emptying study [facility] [place] [address] [place] [address] Nuclear Medicine Report Signed Patient: Charles Blandon MR#: [id number] 66 : 1955 Acct:[id number] Age/Sex: 67 / M ADM Date: 04/26/23 Loc: [place] Room: Type: [facility] Attending Dr: Lorna Ortega DE IONIZER OPERATOR Copies to: Morales Alvarez Jr, DO [...] 1/2 for gastric emptying is 11 minutes. [place] gastric emptying study IMPRESSION: NO SCINTIGRAPHIC EVIDENCE OF GASTROPARESIS. Impression dictated by: Morales Alvarez Jr., D.O.04/26/2023 10:18 AM Dictation Location: [place] [address] Transcribed By: [facility] 04/26/23 1018 Dictated By: Morales Alvarez Jr, DO 04/26/23 1017 Signed By: 04/26/23 1018 Normal The Replaced By [facility] Albumin [Mass/volume] in Ser um or Plasma by Bromocresol green (BCG) dye binding methoOrdered By: Lorna Ortega on 04-12-2023 Albumin BCG dye [Mass/Vol] 3.0 g/dL 3.5-5.7 [facility] Bilirubin.total [Mass/volume ] in Serum or PlasmaOrdered By: Lorna Ortega on 04-12-2023 Bilirubin [Mass/Vol] 1.3 mg/dL High 0.3-1.0 [facility] Comment on above: Samples from patient [...] Bilirubin. Performed By: #### C MP #### [facility] [address] [place] [id number] [facility] Calcium [Mass/volume] in Ser um or PlasmaOrdered By: Lorna Ortega on 04-12-2023 Calcium [Mass/Vol] 8.3 mg/dL Low 8.6-10.3 [facility] Comment on above: Order Comment: Reaso n for Exam Cirrhosis of liver Performed By: #### C MP #### [facility] [address] [place] [id number] [facility] Carbon dioxide, total [Moles /volume] in Serum or PlasmaOrdered By: Lorna Ortega on 04-12-2023 CO2 [Moles/Vol] 27.3 mmol/L Normal 21.0-31.0 [facility] Comment on above: Order Comment: Reaso n for Exam Cirrhosis of liver Performed By: #### C MP #### [facility] [address] [place], [place] [id number] [facility] Comprehensive Metabolic Pane mayito 04-12-2023 Albumin [Mass/Vol] 3.559079 g/dL Low 3.5-5.7 g/dL [facility] Other Bilirubin [Mass/Vol] 1.9069140 mg/dL High 0.3- 1.0 mg/dL [facility] Other Calcium [Mass/Vol] 8.4392794 mg/dL Low 8.6-10 .3 mg/dL [facility] Other CO2 [Moles/Vol] 27.60881264 mmol/L Normal 21.0-3 1.0 mmol/L [facility] Other Creatinine [Mass/Vol] 0.37610021 mg/dL Normal 0. 70-1.30 mg/dL [facility] Other Potassium [Moles/Vol] 5.35383303 mmol/L Normal 3 .5-5.1 mmol/L [facility] Other Protein [Mass/Vol] 6.699571 g/dL Low 6.4-8.9 g/dL [facility] Other Comprehensive Metabolic Panel 3.3 g/dL [facility] Other Albumin [Mass/Vol] 3.0 g/dL Low 3.5-5.7 [facility] Comment on above: Order Comment: Reaso n for Exam Cirrhosis of liver Performed By: #### C MP #### [address] GFR/1.73 sq M.predicted MDRD (S/P/Bld) [Vol rate/Area] mL/min/{1.73_m2} Normal [facility] Other Comment on above: Order Comment: Reaso n for Exam Cirrhosis of liver Performed By: #### C MP #### [facility] [address] [place] [address] Comprehensive Metabolic Pane lOrdered By: Lorna Ortega on 04-12-2023 Albumin/Globulin [Mass ratio] 0.9 {ratio} Normal [facility] Comment on above: Order Comment: Reaso n for Exam Cirrhosis of liver Performed By: #### C MP #### [facility] [address] [place] [address] ALP [Catalytic activity/Vol] 158 U/L High 34-104 [facility] Comment on above: Order Comment: Reaso n for Exam Cirrhosis of liver Result Comment: PERF ORMED BY: [address] [place] [address] PATHOLOGIST REHAB MANAGER CLARK LEARY M.D. Performed By: #### C MP #### [facility] [address] [place] [id number] [place] ALT [Catalytic activity/Vol] 35 U/L Normal 7-52 [facility] Comment on above: Order Comment: Reaso n for Exam Cirrhosis of liver Performed By: #### C MP #### [facility] [address] [place] [address] [place] AST [Catalytic activity/Vol] 76 U/L High 13-39 [facility] Comment on above: Order Comment: Reaso n for Exam Cirrhosis of liver Performed By: #### C MP #### [facility] [address] [place] [id number] [place] Chloride [Moles/Vol] 95 mmol/L Low 98-107 [facility] Comment on above: Order Comment: Reaso n for Exam Cirrhosis of liver Performed By: #### C MP #### [facility] [address] [place] [id number] [place] Glucose [Mass/Vol] 94 mg/dL Normal 70-100 [facility] Comment on above: ADA recommended refe rence rangeRandom Glucose Reference Range is dependent on time and content of last meal. Glucose of more than 200 mg/dL in a nonstressed, ambulatory subject supports the diagnosis of Diabetes Mellitus. Order Comment: Reaso n for Exam Cirrhosis of liver Result Comment: Amasa om Glucose Reference Range is dependent on time and content of last meal. Glucose of more than 200 mg/dL in a nonstressed, ambulatory subject supports the diagnosis of Diabetes Mellitus. ADA recommended reference range Performed By: #### C MP #### [facility] [address] [place] [id number] [place] Sodium [Moles/Vol] 127 mmol/L Low 136-145 [facility] Comment on above: Order Comment: Reaso n for Exam Cirrhosis of liver Performed By: #### C MP #### [facility] [address] [place] [id number] [place] Urea nitrogen [Mass/Vol] 9 mg/dL Normal 7-25 [facility] Comment on above: Order Comment: Reaso n for Exam Cirrhosis of liver Performed By: #### C MP #### [facility] [address] Creatinine [Mass/volume] in Serum or PlasmaOrdered By: Lorna Ortega on 04-12-2023 Creatinine [Mass/Vol] 0.81 mg/dL Normal 0.70-1.30 [facility] Comment on above: Order Comment: Reaso n for Exam Cirrhosis of liver Performed By: #### C MP #### [facility] [address] No Panel InformationOrdered By: Lorna Ortega on 04-12-2023 Estimated GFR (CKD-EPI) > 60.0 mL/Min [facility] Creatinine Clearance (Chem N/A [facility] Potassium [Moles/volume] in Serum or PlasmaOrdered By: Lorna Ortega on 04-12-2023 Potassium [Moles/Vol] 5.1 mmol/L Normal 3.5-5.1 [facility] Comment on above: Order Comment: Reaso n for Exam Cirrhosis of liver Performed By: #### C MP #### [address] Protein [Mass/volume] in Ser um or PlasmaOrdered By: Lorna Ortega on 04-12-2023 Protein [Mass/Vol] 6.3 g/dL Low 6.4-8.9 [facility] Comment on above: Order Comment: Reaso n for Exam Cirrhosis of liver Performed By: #### C MP #### [address] Serum globulin measurement b y calculation (mass/volume)Ordered By: Lorna Ortega on 04-12-2023 Globulin (S) [Mass/Vol] 3.3 g/dL Normal [facility] Comment on above: Order Comment: Reaso n for Exam Cirrhosis of liver Performed By: #### C MP #### [address] Serum or plasma anion gap de terminationOrdered By: Lorna Ortega on 04-12-2023 Anion gap [Moles/Vol] 9.8 mmol/L Normal 6.0-15.0 [facility] Comment on above: Order Comment: Reaso n for Exam Cirrhosis of liver Performed By: #### C #### [facility] [address] [place] [address] XR RIBS 2 VIEWS LEFT WITH [...] muscle IgG Qn (S) 8 Units 0-19 [facility] Comment on above: Negative 0 - 19 Weak positive 20 - 30 Moderate to strong positive >30 Actin Antibodies are found in 52-85% of patients with autoimmune hepatitis or chronic active hepatitis and in 22% of patients with primary biliary cirrhosis. Alanine aminotransferase [En zymatic activity/volume] in Serum or PlasmaOrdered By: Lex Carroll on 09-21-2022 ALT [Catalytic activity/Vol] 30 U/L 7-52 [facility] Albumin [Mass/volume] in Ser um or Plasma by Bromocresol green (BCG) dye binding methoOrdered By: Lex Carroll on 09-21-2022 Albumin BCG dye [Mass/Vol] 3.6 g/dL 3.5-5.7 [facility] Alkaline phosphatase [Enzyma tic activity/volume] in Serum or PlasmaOrdered By: Lex Carroll on 09-21-2022 ALP [Catalytic activity/Vol] 96 U/L 34-104 [facility] Aspartate aminotransferase [ Enzymatic activity/volume] in Serum or PlasmaOrdered By: Lex Carroll on 09-21-2022 AST [Catalytic activity/Vol] 55 U/L 13-39 [facility] Basophils Auto (Bld) [#/Vol] Ordered By: Lex Carroll on 09-21-2022 Basophils (Bld) [#/Vol] 0.0 10*3/uL 0.0-0.2 [facility] Basophils/100 WBC Auto (Bld) Ordered By: Lex Carroll on 09-21-2022 Basophils/100 WBC (Bld) 0.9 % . [facility] Bilirubin.total [Mass/volume ] in Serum or PlasmaOrdered By: Lex Carroll on 09-21-2022 Bilirubin [Mass/Vol] 0.9 mg/dL 0.3-1.0 [facility] Calcium [Mass/volume] in Ser um or PlasmaOrdered By: Lex Carroll on 09-21-2022 Calcium [Mass/Vol] 8.7 mg/dL 8.6-10.3 [facility] Carbon dioxide, total [Moles /volume] in Serum or PlasmaOrdered By: Lex Carroll on 09-21-2022 CO2 [Moles/Vol] 26.9 mmol/L 21.0-31.0 [facility] Chloride [Moles/volume] in S mateo or PlasmaOrdered By: Lex Carroll on 09-21-2022 Chloride [Moles/Vol] 108 mmol/L 98-107 [facility] Cholesterol [Mass/volume] in Serum or PlasmaOrdered By: Lex Carroll on 09-21-2022 Cholesterol [Mass/Vol] 175 mg/dL 140-200 [facility] Comment on above: Chol less than 200 m g/dl low riskChol 201-239 mg/dl borderline riskChol 240 mg/dl and greater high risk Cholesterol in LDL Calc [Mas s/Vol]Ordered By: Lex Carroll on 09-21-2022 Cholesterol in LDL [Mass/Vol] 94 mg/dL 0-100 [facility] Comment on above: LDL ATP III CLASSIFI CATIONLDL less than 100 mg/dL OptimalLDL 100-129 mg/dL Near or above optimalLDL 130-159 mg/dL Borderline highLDL 160-189 mg/dL HighLDL greater than 189 mg/dL Very high Cholesterol in VLDL Calc [Ma ss/Vol]Ordered By: Lex Carroll on 09-21-2022 Cholesterol in VLDL [Mass/Vol] 21 mg/dL [facility] Creatinine [Mass/volume] in Serum or PlasmaOrdered By: Lex Carroll on 09-21-2022 Creatinine [Mass/Vol] 0.90 mg/dL 0.70-1.30 [facility] Eosinophils Auto (Bld) [#/Vo l]Ordered By: Lex Carroll on 09-21-2022 Eosinophils (Bld) [#/Vol] 0.2 10*3/uL 0.0-0.45 [facility] Eosinophils/100 WBC Auto (Bl d)Ordered By: Lex Carroll on 09-21-2022 Eosinophils/100 WBC (Bld) 3.6 % . [facility] Erythrocyte distribution wid th Auto (RBC) [Ratio]Ordered By: Lex Carroll on 09-21-2022 Erythrocyte distribution width (RBC) [Ratio] 14.2 % 12.0-14.8 [facility] Globulin Calc (S) [Mass/Vol] Ordered By: Lex Carroll on 09-21-2022 Globulin (S) [Mass/Vol] 2.8 g/dL [facility] Glucose [Mass/volume] in Ser um or PlasmaOrdered By: Lex Carroll on 09-21-2022 Glucose [Mass/Vol] 123 mg/dL 70-100 [facility] Comment on above: ADA recommended refe rence rangeRandom Glucose Reference Range is dependent on time and content of last meal. Glucose of more than 200 mg/dL in a nonstressed, ambulatory subject supports the diagnosis of Diabetes Mellitus. Hematocrit Auto (Bld) [Volum e fraction]Ordered By: Lex Carroll on 09-21-2022 Hematocrit (Bld) [Volume fraction] 37.5 % 38.8-50.0 [facility] Hemoglobin [Mass/volume] in BloodOrdered By: Lex Carroll on 09-21-2022 Hemoglobin (Bld) [Mass/Vol] 12.9 g/dL 13.0-17.0 [facility] Hepatitis B virus surface Ag [Presence] in Serum or Plasma by ImmunoassayOrdered By: Lex Carroll on 09-21-2022 HBV surface Ag IA Ql Negative Negative [facility] Hepatitis C virus IgG Ab [Pr esence] in Serum or Plasma by ImmunoassayOrdered By: Lex Carroll on 09-21-2022 HCV IgG IA Ql Non-Reactive Non Reactive [facility] Laboratory - CoagulationOrde red By: Lex Carroll on 09-21-2022 PT Coag (PPP) [Time] 13.0 s 9.0-12.9 [facility] Leukocytes [#/volume] correc jamila for nucleated erythrocytes in Blood by Automated counOrdered By: Lex Carroll on 09-21-2022 WBC corrected for nucl RBC Auto (Bld) [#/Vol] 4.2 10*3/uL 4.1-10.5 [facility] Lymphocytes Auto (Bld) [#/Vo l]Ordered By: Lex Carroll on 09-21-2022 Lymphocytes (Bld) [#/Vol] 1.1 10*3/uL 1.00-4.8 [facility] Lymphocytes/100 WBC Auto (Bl d)Ordered By: Lex Carroll on 09-21-2022 Lymphocytes/100 WBC (Bld) 27.1 % . [facility] MCH Auto (RBC) [Entitic mass ]Ordered By: Lex Carroll on 09-21-2022 MCH (RBC) [Entitic mass] 35.0 pg 27.5-35.2 [facility] MCHC Auto (RBC) [Mass/Vol]Or dered By: Lex Carroll on 09-21-2022 MCHC (RBC) [Mass/Vol] 34.4 g/dL 32.5-35.6 [facility] MCV Auto (RBC) [Entitic vol] Ordered By: Lex Carroll on 09-21-2022 MCV (RBC) [Entitic vol] 101.9 fL 83.5-101 [facility] Monocytes Auto (Bld) [#/Vol] Ordered By: Lex Carroll on 09-21-2022 Monocytes (Bld) [#/Vol] 0.5 10*3/uL 0.0-0.8 [facility] Monocytes/100 WBC Auto (Bld) Ordered By: Lex Carroll on 09-21-2022 Monocytes/100 WBC (Bld) 11.3 % . [facility] Neutrophils Auto (Bld) [#/Vo l]Ordered By: Lex Carroll on 09-21-2022 Neutrophils (Bld) [#/Vol] 2.4 10*3/uL 1.8-7.7 [facility] Neutrophils/100 WBC Auto (Bl d)Ordered By: Lex Carroll on 09-21-2022 Neutrophils/100 WBC (Bld) 57.1 % . [facility] No Panel InformationOrdered By: Lex Carroll on 09-21-2022 Estimated GFR (CKD-EPI) > 60.0 mL/Min [facility] Hepatitis B Core Total Antibody Negative Negative [facility] Comment on above: Performed at: [address] [id number] Director: John Tang PhD, Phone: [phone] Hepatitis C Interpretation See comment . [facility] Comment on above: Not infected with HC V unless early or acute infection issuspected (which may be delayed in an immunocompromisedindividual), or other evidence exists to indicate HCVinfection. Hepatitis C RNA Quantitative N/A [facility] Creatinine Clearance (Chem 88.23 [facility] Nucleated erythrocytes [Pres ence] in Blood by Automated countOrdered By: Lex Carroll on 09-21-2022 Nucleated RBC Auto Ql (Bld) 0.2 /100{WBC} 0-0.5 [facility] Platelet mean volume Auto (B ld) [Entitic vol]Ordered By: Lex Carroll on 09-21-2022 Platelet mean volume (Bld) [Entitic vol] 9.8 fL 6.6-10.1 [facility] Platelet poor plasma interna tional normalized ratio (INR) by coagulation assay (relatOrdered By: Lex Carroll on 09-21-2022 INR Coag (PPP) [Relative time] 1.1 {INR} [facility] Comment on above: INR Therapeutic Rang [...] 09-21-2022 Platelets (Bld) [#/Vol] 91 10*3/uL 150-450 [facility] Potassium [Moles/volume] in Serum or PlasmaOrdered By: Lex Carroll on 09-21-2022 Potassium [Moles/Vol] 5.0 mmol/L 3.5-5.1 [facility] Protein [Mass/volume] in Ser um or PlasmaOrdered By: Lex Carroll on 09-21-2022 Protein [Mass/Vol] 6.4 g/dL 6.4-8.9 [facility] RBC Auto (Bld) [#/Vol]Ordere d By: Lex Carroll on 09-21-2022 RBC (Bld) [#/Vol] 3.68 10*6/uL 3.90-5.60 [facility] Serum hsyrm-0-tjohmydnumj me asurementOrdered By: Lex Carroll on 09-21-2022 Alpha 1 antitrypsin [Mass/Vol] 205 mg/dL 101-187 [facility] Serum hepatitis B virus surf waldo [...] M2 IgG Qn (S) <20.0 Units 0.0-20.0 [facility] Comment on above: Negative 0.0 - 20.0 Equivocal 20.1 - 24.9 Positive >24.9Mitochondrial (M2) Antibodies are found in 90-96% ofpatients with primary biliary cirrhosis.Performed at: [facility] - [address] [id number] Director: John Tang PhD, Phone: [phone] Serum or plasma albumin/glob ulin mass ratioOrdered By: Lex Carroll on 09-21-2022 Albumin/Globulin [Mass ratio] 1.3 {ratio} [facility] Serum or plasma alpha 1 anti trypsin phenotyping identification by immunofixationOrdered By: Lex Carroll on 09-21-2022 Alpha 1 antitrypsin phenotyping Immunofixation Nom Mm . [facility] Comment on above: Phenotype Population A-1-AT [...] reference. Ranges used to confirm phenotype.Performed at: [facility] [id number] Director: John Tang PhD, Phone: [phone] at: [address] [id number] Director: George Brown MD, Phone: [phone] Serum or plasma anion gap de terminationOrdered By: Lex Carroll on 09-21-2022 Anion gap [Moles/Vol] 11.1 mmol/L 6.0-15.0 [facility] Serum or plasma ceruloplasmi n measurement (mass/volume)Ordered By: Lex Carroll on 09-21-2022 Ceruloplasmin [Mass/Vol] 22.4 mg/dL 16.0-31.0 [facility] Comment on above: Performed at: [address], [place], [place] [id number] Director: John Tang PhD, Phone: [phone] Serum or plasma free cefurox nhi measurement (mass/volume)Ordered By: Lex Carroll on 09-21-2022 Cefuroxime free [Mass/Vol] Negative Negative [facility] Comment on above: Performed at: [facility] - [facility]cWats[facility] [address] [id number] Director: John Tang PhD, Phone: [phone] Serum or plasma high density lipoprotein (HDL) cholesterol measurementOrdered By: Lex Carroll on 09-21-2022 Cholesterol in HDL [Mass/Vol] 60 mg/dL [facility] Comment on above: HDL CHOL ATP-III CLA SSIFICATION Cardiovascular RiskHDL > or equal to 60 mg/dL LOWHDL < 40 mg/dL HIGH Serum or plasma total choles terol/high density lipoprotein (HDL) cholesterol mass ratOrdered By: Lex Carroll on 09-21-2022 Cholesterol.total/Chol esterol in HDL [Mass ratio] 2.9 {ratio} <5.0 [facility] Sodium [Moles/volume] in Ser um or PlasmaOrdered By: Lex Carroll on 09-21-2022 Sodium [Moles/Vol] 141 mmol/L 136-145 [facility] Triglyceride [Mass/volume] i n Serum or PlasmaOrdered By: Lex Carroll on 09-21-2022 Triglyceride [Mass/Vol] 107 mg/dL 0-149 [facility] Comment on above: TRIG ATP III CLASSIF ICATIONTRIG less than 150 mg/dL NormalTRIG 150-199 mg/dL Borderline highTRIG 200-500 mg/dL High TRIG greater than 500 mg/dL Very highStandard traceable to the Center for Disease Conrtrol and Prevention (CDC) test method. Urea nitrogen [Mass/volume] in Serum or PlasmaOrdered By: Lex Carroll on 09-21-2022 Urea nitrogen [Mass/Vol] 9 mg/dL 11-08 [facility] WBC Auto (Bld) [#/Vol]Ordere d By: Lex Carroll on 09-21-2022 WBC (Bld) [#/Vol] 4.2 10*3/uL 4.1-10.5 [facility] PROGRESSon 04-05-2017 PROGRESS HNO ID: [id number] Author: Bebe Cunningham Ma Service: (none) Author Type: (none) Type: Progress Notes Filed: 04/05/2017 7:36 AM Note Text: PCP updated Normal [facility] PROGRESS HNO ID: [id number] thor: Tanisha Arzateervice: (none)Author Type: PhysicianType: Progress NotesFiled: 04/05/2017 7:36 AMNote Text:This note was created using [employer].Marcio Blandon is a 61 year old male.Review of SystemsObjectiveThere were no vitals taken for this visit.Physical ExamAssessment and PlanPlease remove me as PCP if he is moving out of state and plans toestablish elsewhere.Thank you. [facility] CNPTOUTREACHon 04-04-2017 CNPTOUTREA Patient Outreach ([facility]) NATHANI[facility] BLANDON AM ([id number]) 1955 [facility] Chtukamzfs65/19/17 TANISHA VAZQUEZ [facility] During your visit today, we recorded the following information about you:Bebe Cunningham Ma 04/05/2017 7:36 AM SignedSee refill request 03/30, [place] moving to out of states , do you want to updateJoseline Vazquez MD 04/05/2017 7:36 AM SignedThis note was created using [employer]Marcio Blandon is a 61 year old male.Review of SystemsObjectiveThere were no vitals taken for this visit.Physical ExamAssessment and PlanPlease remove me as PCP if he is moving out of state and [facility].Thank you.Bebe Cunningham Ma 04/05/2017 7:36 AM SignedPCP updatedAllergies As of Date: 04/04/2017 Noted Allergy ReactionBACTRIM (SULFAMETHOXAZOLE-TRIMETH *12/15/2014 2 - RashDate Reviewed: 01/04/2017Reviewed by: Bebe Cunningham Ma - Fully AssessedReason for Visit: PHOH/Care Gap Outreach [3605]Prescriptions as of 04/04/2017 Sig: [...] polyps [Z86.010]Follow-up and Disposition History RecordedEncounter Number: [id number] Status:Closed by BEBE CUNNINGHAM MA on 04/05/17 [facility] PROGRESSon 04-04-2017 PROGRESS HNO ID: [id number] Author: Bebe Cunningham Ma Service: (none) Author Type: (none) Type: Progress Notes Filed: 04/05/2017 7:36 AM Note Text: See refill request 03/30, pt moving to out of [facility] , do you want to update PCP Normal [facility] OBSOLETEon 03-30-2017 OBSOLETE Refill ([facility]) NATHANIEL BLANDON AM ([id number]) 1955 MDate Time Provider Rkefrrrknc20/14/17 TANISHA VAZQUEZ [facility] During your visit today, we recorded the following information about you:Bebe Cunningham Ma 03/30/2017 4:25 PM SignedPt [facility] Ma 03/31/2017 3:12 PM SignedPt states they are moving to [place] he has apt to see a new [...] TABLET* 90 t* 0 03/31/2017 Class: [facility] Route: ORAL Sig: Take 1 tablet by mouth once daily. LISINOPRIL 20 MG TABLET 90 t* 0 03/31/2017 Class: [facility] Route: ORAL Sig: Take 1 tablet by mouth once daily. OMEPRAZOLE 40 MG CAPSULE,DELAYED REL* 90 c* 0 03/31/2017 Class: [facility] Route: ORAL Sig: Take 1 capsule by mouth once daily.Medications Discontinued During This Encounter metoprolol succinate ER (TOPROL XL) * 90 t* 3 04/28/2016 03/31/2017 Class: [facility] Route: ORAL Sig: Take 1 tablet by mouth once daily. Disc: Reason for discontinue is not on file. lisinopril (PRINIVIL) 20 mg tablet 90 t* 3 04/28/2016 03/31/2017 Class: [facility] Route: ORAL Sig: Take 1 tablet by mouth once daily. Disc: Reason for discontinue is not on file. Omeprazole 40 mg capsule 90 c* 3 04/28/2016 03/31/2017 Class: [facility] Route: ORAL Sig: Take 1 capsule by mouth once daily. Disc: Reason for discontinue is not on file. Status:Closed by VIRGINIA SAUCEDA CNP on 03/31/17 [facility] 02-13-2017 [facility] Nurse Visit ([facility]) NATHANIEL BLANDON AM ([id number]) 1955 MDate Time Provider Rjnkkngqdf66/30/17 5:50 PM NURSE EYAD CAMARA During your [...] [Z86.010] Status:Closed by OTONIEL TINOCO on 02/13/17 [facility] 02-13-2017 HOSP REFILL - MYCHART ([facility]) NATHANIEL BLANDON AM ([id number]) 1955 MDate Time Provider Xuhfsqgmjt56/30/17 [facility] your visit today, we recorded the following information about you:Bebe Cunningham Ma 02/13/2017 2:35 PM SignedMessage from [facility]:Original authorizing provider: Ruben Iqbal would like a refill of the following medications:zolpidem (AMBIEN) 10 mg tab [Tanisha Vazquez MD]Preferred pharmacy: [id number] [place] [address] - [id number] - [phone] [facility] [place] [address]Sxdenxb:Bebe Cunningham Ma 02/13/2017 2:38 PM SignedScript pending please review/fileLast filled 04/28/16Next appt: 02/13/2017 nurse visit (flu shot )Last appt: 01/04/2017Tanisha Vazquez MD 02/13/2017 2:45 PM SignedPlease advise the patient that the prescription has been refilled.Thank you,Shirley Iqbal Ma 02/13/2017 2:55 PM SignedScript called [facility] As of Date: 02/13/2017 Noted Allergy ReactionBACTRIM [...] Status:Closed by TANISHA VAZQUEZ MD on 02/13/17 [facility] CNOVon 01-04-2017 CNOV [facility] ([id number]) 1955 [facility] Department01/04/17 9:00 AM TANISHA VAZQUEZ [facility] During your visit today, we [...] allergiesREVIEW OF SYSTEMS:As noted in HPIPHYSICAL EXAMINATION: 101421UW: 172/93BP Site: Left ArmBP Position: SittingBP Cuff [...] AP/LAT/OBL LTAmber Morena Vazquez Provider: TANISHA VAZQUEZ [[id number]]Allergies As of Date: 01/04/2017 Noted Allergy ReactionBACTRIM (SULFAMETHOXAZOLE-TRIMETH *12/15/2014 2 - RashDate Reviewed: 01/04/2017Reviewed by: Bebe Cunningham Ma - Fully AssessedReason for Visit: Acute Visit [896] Cmt: swollen toe x 2 weeksReason For Visit History RecordedPrimary Visit Diagnosis:Great toe pain, left [M79.675]Order(s):XR TOE AP/LAT/OBL LT [[id number]] Order #: [id number] FUTURE XR FOOT GENERAL 3V AP/LAT/OBL LT [[id number]] Order #: [id number] FUTUREPrescriptions as of 01/04/2017 Sig: METOPROLOL SUCCINATE [...] meals. Disc: Course of therapy completedEncounter Number: [id number] Status:Closed by TANISHA VAZQUEZ MD on 01/04/17 [facility] 01-04-2017 [facility] Telephone ([facility]) NATHANIEL BLANDON AM ([id number]) 1955 [facility] Department01/04/17 TANISHA VAZQUEZ [facility] During your visit today, we [...] T TO ORTHOPAEDIC SURGERY [[id number]] Order #: [id number]: 1Prescriptions as of 01/04/2017 Sig: METOPROLOL SUCCINATE [...] by TANISHA VAZQUEZ MD on 01/04/17 Normal [facility] PROGRESSon 01-04-2017 PROGRESS HNO ID: [id number] thor: Jaclyn Lowe (Tech) JoeSer: (none)Author Type: TechnicianType: Progress NotesFiled: 01/04/2017 9:36 AMNote Text: Radiology Service Progress NotePATIENT NAME: Charles AyalagMRN: [id number] OF SERVICE: January 04, 2017TIME: 9:36 AMPATIENT IDENTITY VERIFICATION COMPLETED USING TWO (2) METHODS: Patientconfirmed name verbally and Date of .PATIENT GENDER DATA: MalePATIENT RELEVANT IMPLANT DATA REVIEWED: Not ApplicableRADIOLOGY DEPARTMENT: General X-ray: Exam(s) Completed: Lower ExtremityX-Ray(s): Foot, Left and Wt. Bearing and Toes, Left:PERIPHERAL IV DATA: Not applicableSIGNED BY: Jaclyn Diaz [facility]ENTERSept2016 9:36 AM [facility] PROGRESS HNO ID: [id number] thor: Tanisha Clarkice: (none)Author Type: PhysicianType: Progress [...] FOOT GENERAL 3V AP/LAT/OBL LTTanisha Vazquez MD [facility] XR FOOT 3V AP/LAT/OBL LTon [...] phalanx with extension into the 1st IP joint.Safe And Vault Mechanic: SRINI Transcribe Date/Time: Jan 04 2017 10:28ADictated by : Sedrick ANDREWS examination was interpreted and the report reviewed and electronically signed by: MALORIE NICHOLS MD on Jan 04 2017 2:47PM [id number] Normal [facility] XR TOE 3V AP/LAT/OBL LTon [...] phalanx with extension into the 1st IP joint.Safe And Vault Mechanic: SRINI Transcribe Date/Time: Jan 04 2017 10:28ADictated by : Sedrick ANDREWS examination was interpreted and the report reviewed and electronically signed by: MALORIE NICHOLS MD on Jan 04 2017 2:47PM [id number] [facility] CNPNon 12-11-2016 CNPN Telephone ([facility]) NATHANIEL BLANDON AM ([id number]) 1955 MDate Time Provider Department12/11/16 COY BLANCHARD [facility] During your visit today, we [...] COY BLANCHARD MD on 12/12/16 [facility] CNOVon 12-10-2016 CNOV Office Visit ([facility]) NATHANIEL BLANDON AM ([id number]) 1955 MDate Time Provider Department12/10/16 9:30 AM COY BLANCHARD [facility] During your visit today, we [...] ?F) (Oral) Wt 95.7 kg (211 lb) WgL307% BMI 30.71 kg/m2BMI 30.71 kg/(m2)General: alert and [...] MG TABLET- URIC ACID BLOODMattjose juan Blanchard MDInter-Community Medical CenterjamesAffinity Health Partners 12/10/2016 9:58 AM SignedPhlebotomy was performed per [...] 1 URIC ACID BLOOD [SQURIC] Order #: [id number] as of 12/10/2016 Sig: METOPROLOL SUCCINATE ER [...] to improve.Follow-up and Disposition History RecordedEncounter Number: [id number] Status:Closed by COY BLANCHARD MD on 12/10/16 [facility] PROGRESSon 12-10-2016 PROGRESS HNO ID: [id number] thor: ANABELLA Hawleyervice: (none)Author Type: PhysicianType: Progress NotesFiled: 12/10/2016 9:59 AMNote Text:Charles Blandon is a 61 year old male here complaining of left toe pain.According to the patient, he states he has been diagnosed with gout in [facility] and has had similar symptoms. Last [...] URIC ACID BLOODMattjose juan Blanchard MD Normal [facility] Uric Acidon 12-10-2016 Urate 8.2 mg/dL High 4.0-8.1 [facility] Comment on above: Performed By: #### U BARB ####[facility] [address] [place], [place] [id number] CNOVon 11-01-2016 CNOV Office Visit ([facility]) NATHANIEL BLANDON AM ([id number]) 1955 [facility] Department11/01/16 9:30 AM ROYCE ARAIZA During your visit today, we recorded the following information about you: Pulse Blood pressure 57/minute 165/82Royce Araiza MD 11/01/2016 2:06 PM SignedDERMATOLOGY CONSULT FOR MOHSSERVICE DATE: 11/01/2016PRCON[facility]ALTHRY CARE PHYSICIAN: MORENA Iqbal PROVIDER:Tanisha Vazquez MD[address] [place] [id number] requested for an opinion regarding the evaluation and treatmentof skin cancer. My final impression and recommendations will be communicatedback to the requesting physician by way of the shared medical record or lettervia US mail.SUBJECTIVECHIEF COMPLAINT: BCCHISTORY OF PRESENT ILLNESSBIOPSY INFORMATION:1. Pathology Results: BCC Nodular and Ulcerated of the LEFT TEMPLEReport Number: Inside Pathology [id number] Performed: 08/10/2016Performed By: [facility] ProviderPast Treatment: No Past Treatment Tumor Type: PrimaryPresent For: unknown amount of month(s)Signs ANDamp; Symptoms: Non-healingPAST DERM HISTORY: No History of Skin CancerFAMILY HISTORY: No History of Skin CancerPAST MEDICAL HISTORYDiagnosis Date- Recinos's esophagus- GERD (gastroesophageal reflux disease)- HTN (hypertension)- Hx of colonic polyps- Osteoporosis- Umbilical herniaPAST SURGICAL [id number]: CHOLECYSTECTOMYNo date: COLONOSCOPY Comment: every 3 yearsNo [...] Nose, Chin, Lips, Ears, Periauricular Skin and [place])Pre-op Size: 0.6 cm - 1 cm, (0.7cm [...] and Past Histories independentlygathered by the clinical office support specialist and the remaining scribed noteaccurately describes my personal service to the patient.SIGNATURE: Royce Araiza MD PATIENT NAME: Charles AyalagDATE: November 01, 2016 : 10:20 AM PAGER/CONTACT #:MOHS MICROGRAPHIC OPERATIVE REPORTSERVICE DATE: 11/01/2016SERVICE TIME: 9:10 AMLOCATION:Celine TraoreSaint Francis [facility] Hospital[address] [place], [place] [address]OIPUGZGPT PROVIDER:Tanisha Vazquez MD[address] [facility] [id number] START TIME: 941PROCEDURE END TIME: 2SURGEON: Dr. [...] Available at Bedside: Inside pathology report # [id number] Size: 0.6 cm - 1 cm, (0.7cm [...] surgery on a Primarytumor type from LEFT CHURCH (location of tumor).Post-op Defect Size: 1.0 x [...] GIVEN WITH VERBAL UNDERSTANDING: YesPATIENT DISCHARGED TO INBOUND SALES MANAGER/NAME: SelfFOLLOW UP: Return for wound care check in 6 weekse Dermatology yearly or as needed for FSE'sPRNThe documentation for this note was completed by Lis Serrano RN acting asscribe for Royce Araiza MD. November 01, 2016 10:29 AM.I agree with the Chief Complaint, ROS, and Past Histories independentlygathered by the clinical office support specialist and the remaining scribed noteaccurately [...] SurgeryDepartment to speak to a Nurse at [phone].After 5 pm, nights, and weekends, please call [phone] or and ask for the dermatology surgery fellow construction equipment operator.Referring Provider: TANISHA VAZQUEZ [[id number]]Allergies As of Date: 11/01/2016 Noted Allergy ReactionBACTRIM (SULFAMETHOXAZOLE-TRIMETH *12/15/2014 2 - RashDate Reviewed: 11/01/2016Reviewed by: Royce Araiza - Fully AssessedPrimary Visit Diagnosis:Basal cell carcinoma of left episcopalian region [C44.319]Prescriptions as of 11/01/2016 Sig: METOPROLOL [...] Department to speak to a Nurse at [phone]. After 5 pm, nights, and weekends, please call [phone] or and ask for the dermatology surgery fellow construction equipment operator.Disposition: Return in about 6 weeks (around 12/13/2016) for WOUND CHECK.Follow-up and Disposition History RecordedEncounter Number: [id number] Status:Closed by ROYCE ARAIZA MD on 11/01/16 Normal [facility] PROGRESSon 11-01-2016 PROGRESS HNO ID: [id number] thor: Royce Lindodenny: (none)Author Type: PhysicianType: Progress NotesFiled: 11/01/2016 2:06 PMNote Text:DERMATOLOGY CONSULT FOR AURELIO DATE: 11/01/2016PRIMARY CARE PHYSICIAN: MORENA Iqbal PROVIDER:Tanisha Vazquez MD[address] [facility] [address]Rbaludsoxtrh requested for an opinion regarding the evaluation andtreatment of skin cancer. My final impression and recommendations will becommunicated back to the requesting physician by way of the shared medicalrecord or letter via US mail.SUBJECTIVECHIEF COMPLAINT: BCCHISTORY OF PRESENT ILLNESSBIOPSY INFORMATION:1. Pathology Results: BCC Nodular and Ulcerated of the LEFT TEMPLEReport Number: Inside Pathology [id number] Performed: 08/10/2016Performed By: [facility] ProviderPast Treatment: No Past Treatment Tumor Type: PrimaryPresent For: unknown amount of month(s)Signs AND Symptoms: Non-healingPAST DERM HISTORY: No History of Skin CancerFAMILY HISTORY: No History of Skin CancerPAST MEDICAL HISTORYDiagnosis Date- Recinos's esophagus- GERD (gastroesophageal reflux disease)- HTN (hypertension)- Hx of colonic polyps- Osteoporosis- Umbilical herniaPAST SURGICAL [id number]: CHOLECYSTECTOMYNo date: COLONOSCOPY Comment: every 3 yearsNo [...] Eyebrows, Nose, Chin, Lips, Ears, Periauricular Skinand [place])Pre-op Size: 0.6 cm - 1 cm, (0.7cm [...] and Past Histories independentlygathered by the clinical office support specialist and the remaining scribed noteaccurately describes my personal service to the patient.SIGNATURE: Royce Araiza MD PATIENT NAME: Charles AyalagDATE: November 01, 2016 : 10:20 AM PAGER/CONTACT #:MOHS MICROGRAPHIC OPERATIVE REPORTSERVICE DATE: 11/01/2016SERVICE TIME: 9:10 AMLOCATION:[place] Inderjit TraoreSaint Francis Memorial Hospital[address] [place], [place] [address]AMTMZEZMH PROVIDER:Tanisha Vazquez MD[address] [facility] [address]XJNXWDYDA START TIME: 941PROCEDURE END TIME: 2SURGEON: Dr. [...] Available at Bedside: Inside pathology report # [id number] Size: 0.6 cm - 1 cm, (0.7cm X 0.8cm)Lymphadenopathy: NoneIndication for Mohs: Anatomic Location where lesion is prone to recur,Type of tumor, Age of patient and Ill-defined bordersLocation: Area H: (Mask Areas of the Face - Includes Central Face,Eyelids, Inner/Outer [place], Eyebrows, Nose, Chin, Lips, Ears,Periauricular Skin and [place])Preparation: Povidone-iodineLAYER AThe patient was positioned, prepped with [...] surgery on aPrimary tumor type from LEFT CHURCH (location of tumor).Post-op Defect Size: 1.0 x [...] GIVEN WITH VERBAL UNDERSTANDING: YesPATIENT DISCHARGED TO INBOUND SALES MANAGER/NAME: SelfFOLLOW UP: Return for wound care check in 6 weeksSee Dermatology yearly or as needed for FSE'sPRNThe documentation for this note was completed by Lis Serrano RN acting asscribe for Royce Araiza MD. November 01, 2016 10:29 AM.I agree with the Chief Complaint, ROS, and Past Histories independentlygathered by the clinical office support specialist and the remaining scribed noteaccurately describes my personal service to the patient.SIGNATURE: Royce Araiza MD PATIENT NAME: Charles HendersonjonathangDATE: November 01, 2016 : 9:10 AM PAGER/CONTACT #: Sammy [facility] 10-17-2016 [facility] Nurse Visit ([facility]) NATHANIEL BLANDON AM ([id number]) 1955 MDate Time Provider Department10/17/16 7:00 AM [facility] During your visit today, we recorded the following information about you:Constance Mancuso Radiological Metallurgist 10/17/2016 1:46 PM SignedPhlebotomy was performed per the order of Tanisha Vazquez M.D.., accessing leftantecubital vein.Needle removed intact. Dressing secured with tape.Patient denies discomfort, dizziness, light-headedness, or weakness and leftthe office ambulatory..Referring Provider: TANISHA VAZQUEZ [[id number]]Allergies As of Date: 10/17/2016 Noted Allergy ReactionBACTRIM (SULFAMETHOXAZOLE-TRIMETH *12/15/2014 2 - RashDate Reviewed: 08/10/2016Reviewed by: Bebe Cunningham Ma - Fully AssessedVisit Diagnoses:Abnormal LFTs [R79.89] Elevated fasting blood sugar [R73.01]Order(s):COMP METABOLIC PANEL [SQCMP] Order #: [id number] HGB A1C [OEAAB9T] Order #: [id number] as of 10/17/2016 Sig: METOPROLOL SUCCINATE ER [...] of colonic polyps [Z86.010]Visit Notes:>> Constance Mancuso Radiological Metallurgist Mon Oct 17, 2016 1:42 PM Status: SignedPhlebotomy was performed per the order of Tanisha Vazquez M.D.., accessingleft antecubital vein.Needle removed intact. Dressing secured with tape.Patient denies discomfort, dizziness, light-headedness, or weakness andleft the office ambulatory.. Status:Closed by CONSTANCE DE LA ROSA on 10/17/16 Normal [facility] Comp Metabolic Panelon 10-17 Alanine aminotransferase (ALT) 38 U/L Normal 10-54 [facility] Comment on above: Performed By: #### C MP, HBA1C ####[facility] [place] [phone] Albumin 4.1 g/dL Normal 3.9-4.9 [facility] Comment on above: Performed By: #### C MP, HBA1C ####[place] [id number] [place] [phone] Alkaline phosphatase (ALP) 54 U/L Normal 36-108 [facility] Comment on above: Performed By: #### C MP, HBA1C ####[place] [address] [address] [place] [phone] Anion gap 20 mmol/L High 9-18 [facility] Comment on above: Performed By: #### C MP, HBA1C ####[place] [address] [address] [place] [phone] Aspartate aminotransferase (AST) 43 U/L High 14-40 [facility] Comment on above: Performed By: #### C MP, HBA1C ####[place] [address] [address] [place] [phone] Bilirubin (total) 0.3 mg/dL Normal 0.2-1.3 [facility] Comment on above: Performed By: #### C MP, HBA1C ####[facility] [phone] Calcium 9.5 mg/dL Normal 8.5-10.2 [facility] Comment on above: Performed By: #### C MP, HBA1C ####[facility] [place] [phone] Chloride 101 mmol/L Normal 97-105 [facility] Comment on above: Performed By: #### C MP, HBA1C ####[facility] [place] [phone] CO2 23 mmol/L Normal 22-30 [facility] Comment on above: Performed By: #### C MP, HBA1C ####[facility] [address], [place] [phone] Creatinine 1.02 mg/dL Normal 0.73-1.22 [facility] Comment on above: Performed By: #### C MP, HBA1C ####[facility] [address], [place] [phone] eGFR (non-black) mL/min/{1.73_m2} Normal [facility] Comment on above: Performed By: #### C MP, HBA1C ####[facility] [address] [place], [place] [phone] Result Comment: eGFR (Estimated GFR) Units of [...] Normal 74-99 [facility] Comment on above: Result Comment: The [place] Diabetes Association (ADA) provides guidance for cutoff [...] Standards of Medical Care in Diabetes 2016, [place] Diabetes Association. Diabetes Care. 2016.39(Suppl 1). Performed By: #### C MP, HBA1C ####[facility] [address] [place], [place] [phone] Potassium molar conc 4.6 mmol/L Normal 3.7-5.1 [facility] Comment on above: Performed By: #### C MP, HBA1C ####[facility] [place], [place] [phone] Protein 7.1 g/dL Normal 6.3-8.0 [facility] Comment on above: Performed By: #### C MP, HBA1C ####[address] [phone] Sodium 144 mmol/L Normal 136-144 [facility] Comment on above: Performed By: #### C MP, HBA1C ####[address] [phone] Urea nitrogen 18 mg/dL Normal 9-24 [facility] Comment on above: Performed By: #### C MP, HBA1C ####[address] [phone] Hemoglobin A1con 10-17-2016 Glucose mass conc 120 mg/dL Normal [facility] Comment on above: Result Comment: eAG: (Estimated average glucose) is a calculated value from HgbA1c and is player services representative of the average blood glucose level in the last 2-3 month period. Performed By: #### C MP, HBA1C ####[address] [phone] Hemoglobin A1c/Hemoglobin.total mass fraction (Bld) 5.8 % High 4.3-5.6 [facility] Comment on above: Result Comment: Amer [place] Diabetes Association guidelines indicate that patients with HgbA1c in the range 5.7-6.4% are at increased risk for development of diabetes, and intervention by lifestyle modification may be beneficial. HgbA1c greater or equal to 6.5% is considered diagnostic of diabetes. Performed By: #### C MP, HBA1C ####[address] [phone] Vital Signs Date Time Vital Sign Value Performing Clinician Facility 07-05-2023 08:58-0400 Body weight 94.85 kg II Rusty Delgado Work Phone: [facility] 07-05-2023 08:58-0400 Diastolic blood pressure 71 mm[Hg] II Rusty Delgado Work Phone: [facility] 07-05-2023 08:58-0400 Heart rate 88 /min II Rusty Delgado Work Phone: [facility] 07-05-2023 08:58-0400 Systolic blood pressure 121 mm[Hg] II Rusty Delgado Work Phone: [facility] 06-13-2023 17:15-0500 Diastolic blood pressure 62 mm[Hg] II Rusty Delgado Work Phone: [facility] 06-13-2023 17:15-0500 Heart rate 72 /min II Rusty Delgado Work Phone: [facility] 06-13-2023 17:15-0500 Respiratory rate 20 /min II Rusty Delgado Work Phone: [facility] 06-13-2023 17:15-0500 SaO2% (BldA) [Mass fraction] 94 % II Rusty Delgado Work Phone: [facility] 06-13-2023 17:15-0500 Systolic blood pressure 101 mm[Hg] II Rusty Delgado Work Phone: [facility] 06-13-2023 13:38-0500 Body height 175.26 cm II Rusty Delgado Work Phone: [facility] 06-13-2023 13:38-0500 Body mass index (BMI) [Ratio] 31.1 kg/m2 II Rusty Delgado Work Phone: [facility] 06-13-2023 13:38-0500 Body weight 95.7 kg II Rusty Delgado Work Phone: [facility] 06-13-2023 12:05-0500 Body temperature 98.2 [degF] II Rusty Delgado Work Phone: [facility] 05-31-2023 15:07-0500 Body height 175.3 cm Janneth Itzkowitz DO Work Phone: [facility] 05-31-2023 15:07-0500 Body mass index (BMI) [Ratio] 32.05 kg/m2 Janneth Itzkowitz DO Work Phone: [facility] 05-31-2023 15:07-0500 Body weight 98.43 kg Janneth Itzkowitz DO Work Phone: [facility] 05-31-2023 15:07-0500 Diastolic blood pressure 72 mm[Hg] Janneth Itzkowitz DO Work Phone: [facility] 05-31-2023 15:07-0500 Systolic blood pressure 120 mm[Hg] Janneth Itzkowitz DO Work Phone: [facility] 05-23-2023 06:44-0500 Body height 175.26 cm II Rusty Delgado Work Phone: [facility] 05-23-2023 06:44-0500 Body weight 99.79 kg II Rusty Delgado Work Phone: [facility] 05-18-2023 14:04-0500 Body height 175.3 cm Janneth Itzkowitz DO Work Phone: [facility] 05-18-2023 14:04-0500 Body mass index (BMI) [Ratio] 32.78 kg/m2 Janneth Itzkowitz DO Work Phone: [facility] 05-18-2023 14:04-0500 Body weight 100.7 kg Janneth Itzkowitz DO Work Phone: [facility] 05-18-2023 14:04-0500 Diastolic blood pressure 74 mm[Hg] Janneth Itzkowitz DO Work Phone: [facility] 05-18-2023 14:04-0500 Systolic blood pressure 120 mm[Hg] Janneth Villegas DO Work Phone: [facility] 04-12-2023 11:00-0500 Body height 175.26 cm Lorna Scovanner Other [facility] 04-12-2023 11:00-0500 Body mass index (BMI) [Ratio] 33.22 kg/m2 Lorna Scovanner Other [facility] Other 04-12-2023 11:00-0500 Body weight 102.06 kg Lorna Scovanner Other [facility] Other 04-12-2023 11:00-0500 Body weight 102.05 kg JUDITH Delgado Work Phone: [facility] 04-12-2023 11:00-0500 Diastolic blood pressure 67 mm[Hg] Lorna Scovanner Other [facility] 04-12-2023 11:00-0500 Systolic blood pressure 135 mm[Hg] Lorna Scovanner Other [facility] 11-10-2022 11:00-0400 Body weight 99.79 kg Lorna Scovanner Other [facility] Other 11-10-2022 11:00-0400 Diastolic blood pressure 74 mm[Hg] Lorna Scovanner Other [facility] Other 11-10-2022 11:00-0400 Systolic blood pressure 127 mm[Hg] Lorna Scovanner Other [facility] Other 09-21-2022 08:49-0400 Diastolic blood pressure 78 mm[Hg] JUDITH Delgado Work Phone: [facility] 06-07-2023 08:49-0400 Heart rate 50 /min II Rusty Delgado Work Phone: [facility] 09-21-2022 08:49-0400 SaO2% (BldA) [Mass fraction] 99 % II Rusty Delgado Work Phone: [facility] 09-21-2022 08:49-0400 Systolic blood pressure 125 mm[Hg] II Rusty Delgado Work Phone: [facility] 09-21-2022 07:36-0400 Body height 175.26 cm II Rusty Delgado Work Phone: [facility] 09-21-2022 07:36-0400 Body temperature 98.5 [degF] II Rusty Delgado Work Phone: [facility] 09-21-2022 07:36-0400 Body weight 95.25 kg II Rusty Delgado Work Phone: [facility] 09-21-2022 07:36-0400 Respiratory rate 16 /min II Rusty Delgado Work Phone: [facility] Encounters Encounter Date Encounter Type Care Provider Facility Start: 12-13-2023 End: 12-13-2023 ambulatory FABY ECHEVARRIA Not Available Start: 12-12-2023 End: 12-12-2023 ambulatory II Rusty Delgado Work Phone: [facility] Work Phone: Start: 12-12-2023 End: 12-12-2023 Departed Referred II Rusty Delgado Work Phone: [facility] Start: 12-08-2023 End: 12-08-2023 ambulatory [facility] Facility:[facility] Start: 12-08-2023 End: 12-08-2023 Departed Referred II Rusty Delgado Work Phone: [facility] Start: 12-07-2023 End: 12-07-2023 ambulatory II Rusty Delgado Work Phone: [facility] Work Phone: Start: 12-07-2023 End: 12-07-2023 Departed Referred II Rusty Delgado Work Phone: [facility] Start: 11-27-2023 End: 11-27-2023 ambulatory [facility] Start: 11-15-2023 End: 11-15-2023 ambulatory RUSTY Gomez DANNY Not Available Start: 11-14-2023 End: 11-14-2023 ambulatory [facility] Start: 11-08-2023 End: 11-08-2023 ambulatory ROSALINO LAMAS Not Available Start: 10-13-2023 ambulatory [facility] Start: 10-13-2023 End: 10-13-2023 ambulatory [facility] Start: 10-09-2023 End: 10-09-2023 ambulatory JANNETH VILLEGAS Not Available Start: 10-03-2023 End: 10-03-2023 ambulatory JUDITH Delgado Work Phone: [facility] Work Phone: Start: 10-03-2023 End: 10-03-2023 Departed Referred II Rusty Delgado Work Phone: [facility] Start: 10-02-2023 End: 10-02-2023 ambulatory LYNDSEY PATEL Not Available Start: 09-25-2023 End: 09-25-2023 ambulatory [facility] Start: 09-15-2023 End: 09-15-2023 ambulatory WARD BENEDICT Not Available Start: 09-05-2023 End: 09-05-2023 ambulatory WARD BENEDICT Not Available Start: 08-30-2023 End: 08-30-2023 ambulatory WARD BENEDICT Not Available Start: 08-22-2023 End: 08-22-2023 ambulatory [facility] Start: 08-07-2023 End: 08-07-2023 ambulatory [facility] Start: 07-18-2023 End: 07-18-2023 ambulatory FABY Syed WALE Not Available Start: 07-12-2023 End: 07-13-2023 ambulatory Janneth H Itzkowitz Facility:[facility] [place] Start: 07-12-2023 End: 07-12-2023 Patient encounter procedure Jourdan ARRIAZA [facility] [place] Start: 07-05-2023 End: 07-05-2023 ambulatory II Rusty Delgado Work Phone: [facility] Work Phone: Start: 07-05-2023 End: 07-05-2023 Patient encounter procedure II Rusty Danny Work Phone: Replaced By [facility] Work Phone: Start: 06-29-2023 End: 06-29-2023 ambulatory JANNETH H ITZKOWITZ Not Available Start: 06-23-2023 ambulatory Janneth Itzkowitz Facil ity:[facility] [place] Start: 06-22-2023 End: 06-22-2023 ambulatory JANNETH H ITZKOWITZ Not Available Start: 06-13-2023 End: 06-13-2023 Admission to same day surgery center II Rusty Danny Work Phone: [facility] [place] Start: 06-13-2023 End: 06-13-2023 ambulatory Rusty Delgado Facility:[facility] Start: 06-02-2023 End: 06-02-2023 Patient encounter procedure II Rusty Delgado Work Phone: [facility] Work Phone: Start: 06-02-2023 End: 06-02-2023 ambulatory II Rusty Delgado Work Phone: [facility] Work Phone: Start: 05-31-2023 End: 05-31-2023 Office outpatient visit 25 minutes Janneth H Itzkowitz DO Work Phone: [facility] [employer] Comment on above: Fissure in ano (Prim chinmay Dx) Start: 05-31-2023 End: 05-31-2023 ambulatory JANNETH H ITZKOWITZ Not Available Start: 05-23-2023 End: 05-23-2023 Admission to same day surgery center II Rusty Delgado Work Phone: [facility] Work Phone: Start: 05-23-2023 End: 05-23-2023 ambulatory Rusty Delgado Facility:[facility] Start: 05-18-2023 End: 05-18-2023 Office outpatient new 45 minutes Janneth H Itzkowitz DO Work Phone: [facility] [employer] Comment on above: Fissure in ano Start: 05-18-2023 End: 05-18-2023 ambulatory JANNETH H ITZKOWITZ Not Available Start: 05-11-2023 End: 05-11-2023 ambulatory Lorna Ortega Other [employer] Other Start: 05-11-2023 Office outpatient visit 15 minutes Lorna Ortega [facility] Start: 04-28-2023 End: 04-28-2023 ambulatory Lorna Ortega Other [employer] Other Start: 04-28-2023 Telephone encounter Lorna Coates [facility] Start: 04-27-2023 End: 04-27-2023 ambulatory Lorna Ortega Other [employer] Other Start: 04-27-2023 Telephone encounter Lorna Coates [facility] Start: 04-26-2023 End: 04-26-2023 Patient encounter procedure II Rusty Delgado Work Phone: [facility] [place] Work Phone: Start: 04-26-2023 End: 04-26-2023 ambulatory Rusty Delgado Facility:[facility] Start: 04-13-2023 End: 04-13-2023 ambulatory Lorna Ortega Other [employer] Other Start: 04-13-2023 Telephone encounter Lorna Coates [facility] Start: 04-12-2023 Office outpatient visit 25 minutes Lorna Ortega [facility] Start: 04-12-2023 Telephone encounter Lorna Coates [facility] Start: 04-12-2023 End: 04-12-2023 Patient encounter procedure II Rusty Delgado Work Phone: [facility] [place] Work Phone: Start: 04-12-2023 End: 04-12-2023 ambulatory II Rusty Delgado Work Phone: [employer] Other Start: 04-12-2023 End: 04-12-2023 Patient encounter procedure II Rusty Delgado Work Phone: Replaced By [facility] Work Phone: Start: 04-03-2023 End: 04-03-2023 ambulatory Lorna Ortega Other [employer] Other Start: 04-03-2023 Telephone encounter Lorna Coates [facility] Start: 03-30-2023 End: 03-30-2023 ambulatory RUSTY DELGADO Not Available Start: 03-24-2023 End: 03-24-2023 ambulatory RUSTY DELGADO Not Available Start: 03-24-2023 End: 03-24-2023 ambulatory RUSTY DELGADO Not Available Start: 11-18-2022 End: 11-18-2022 ambulatory Lorna Ortega Other [employer] Other Start: 11-18-2022 Telephone encounter Lorna Coates [facility] Start: 11-15-2022 End: 11-15-2022 ambulatory II Rusty Delgado Work Phone: [facility] Work Phone: Start: 11-15-2022 End: 11-15-2022 Patient encounter procedure II Rusty Delgado Work Phone: [facility] [place] Work Phone: Start: 11-10-2022 End: 11-10-2022 ambulatory Lorna Ortega Other [facility] Other Start: 11-10-2022 Office outpatient visit 15 minutes Lorna Ortega [facility] Start: 11-03-2022 End: 11-03-2022 Patient encounter procedure II Rusty Delgado Work Phone: [facility] Work Phone: Start: 10-26-2022 End: 10-26-2022 ambulatory II Rusty Delgado Work Phone: [facility] Work Phone: Start: 10-26-2022 End: 10-26-2022 Departed Referred II Rusty Delgado Work Phone: [facility] Work Phone: Start: 10-26-2022 End: 10-26-2022 Patient encounter procedure II Rusty Delgado Work Phone: [facility] Work Phone: Start: 09-21-2022 End: 09-21-2022 Admission to same day surgery center II Rusyt Delgado Work Phone: [facility] Work Phone: Start: 09-21-2022 End: 09-21-2022 ambulatory II Rusty Delgado Work Phone: [facility] Work Phone: Start: 02-13-2017 End: 02-13-2017 Ambulatory TANISHA CHEMA [facility] Start: 01-04-2017 End: 01-04-2017 Ambulatory TANISHA VAZQUEZ [facility] Start: 12-10-2016 End: 12-10-2016 Ambulatory COY BLANCHARD [facility] Start: 11-01-2016 End: 11-02-2016 Ambulatory ROYCE ARAIZA [facility] Start: 10-17-2016 End: 10-17-2016 Ambulatory TANISHA VAZQUEZ [facility] Procedures Date Procedure Procedure Detail Performing [...] 05-12-2032 Screening for malignant neoplasm of colon [facility] Start: 05-26-2024 Urine screening for protein Diabetes: Urine Protein Screening [facility] Start: 05-24-2024 Glaucoma screening Diabetes: Retinopathy Screening [facility] Start: 08-24-2023 Hemoglobin A1c measurement Diabetes: Hemoglobin A1C [facility] Start: 06-13-2023 [facility] Start: 06-13-2023 [facility] Start: 06-13-2023 End: 06-13-2023 Patient encounter procedure 06/13/2023 1:30 PM EST Procedure Visit [facility] Janneth Villegas DO [address] [id number] [facility] Start: 06-09-2023 End: 06-09-2023 Patient encounter procedure 06/09/2023 10:30 AM EST Office Visit [facility] [address] [place] [phone] Janneth Villegas DO [facility] [address] [place] [address] [facility] Start: 05-26-2023 Medicare Annual Wellness (AWV) Medicare Annual Wellness (AWV) [facility] Start: 05-23-2023 [facility] Start: 02-23-2023 Hemoglobin A1c measurement Diabetes: Hemoglobin A1C [facility] Start: 11-03-2022 [facility] Start: 11-03-2022 Ultrasound elastography of liver [facility] [employer] (Not Applicable) [facility] Start: 10-26-2022 Ultrasound elastography of liver [facility] [employer] (Not Applicable) [facility] Start: 10-26-2022 [facility] Start: 09-21-2022 Hepatitis B core antibody measurement [facility] Start: 09-21-2022 End: 09-21-2022 [facility] Start: 1972 Urine screening for protein Diabetes: Urine Protein Screening [facility] Start: 08-03-1961 Pneumococcal Vaccine: 65+ Years (1 - PCV) Pneumococcal Vaccine: 65+ Years (1 - PCV) [facility] Start: 1955 Medicare Annual Wellness (AWV) Medicare Annual Wellness (AWV) [facility] Start: 1955 Screening for malignant neoplasm of colon [facility] Actin smooth muscle IgG Ab [Units/volume] in Serum [facility] Alpha 1 antitrypsin [Mass/volume] in Serum or Plasma [facility] Alpha 1 antitrypsin phenotyping [Identifier] in Serum or Plasma by Immunofixation [facility] Cefuroxime free [Mass/volume] in Serum or Plasma [facility] Ceruloplasmin [Mass/volume] in Serum or Plasma [facility] Hepatitis B virus galindo rface Ab [Presence] in Serum [facility] Hepatitis B virus galindo rface Ag [Presence] in Serum or Plasma by Immunoassay [facility] Hepatitis C virus Ig G Ab [Presence] in Serum or Plasma by Immunoassay [facility] Mitochondria M2 IgG Ab [Units/volume] in Serum [facility] Patient referral [facility] Work Phone: Immunizations Immunization Date Immunization Notes Care Provider Matt sosa 01-24-2023 influenza virus vaccine, unspecified formulation Jourdan ARRIAZA [facility] 04-30-2022 zoster vaccine recombinant Janneth Itzkowitz DO Work Phone: [facility] 03-22-2022 tetanus toxoid, reduced diphtheria toxoid, and acellular pertussis vaccine, adsorbed Janneth Itzkowitz DO Work Phone: [facility] 02-01-2022 influenza virus vaccine, unspecified formulation Jourdan ARRIAZA [facility] 02-01-2022 influenza, high dose seasonal, preservative-free Janneth Itzkowitz DO Work Phone: [facility] [facility] 02-17-2021 influenza virus vaccine, unspecified formulation Jourdan ARRIAZA [facility] 02-17-2021 influenza, high dose seasonal, preservative-free Janneth Itzkowitz DO Work Phone: [facility] 02-13-2017 influenza virus vaccine, unspecified formulation Jourdan ARRIAZA [facility] 02-13-2017 influenza, injectabl e, quadrivalent, contains preservative Janneth Itzkowitz DO Work Phone: [facility] 02-01-2016 influenza virus vaccine, unspecified formulation Jourdan ARRIAZA [facility] 02-01-2016 influenza, seasonal, injectable Janneth Itzkowitz DO Work Phone: [facility] 03-24-2015 zoster vaccine, live Janneth Itzkowitz DO Work Phone: [facility] 02-10-2015 influenza virus vaccine, unspecified formulation Jourdan ARRIAZA [facility] 02-10-2015 influenza, seasonal, injectable Janneth Itzkowitz DO Work Phone: [facility] 01-14-2014 influenza virus vaccine, unspecified formulation Jourdan ARRIAZA [facility] 01-14-2014 influenza, seasonal, injectable Janneth Itzkowitz DO Work Phone: [facility] 01-23-2013 influenza virus vaccine, unspecified formulation Janneth Itzkowitz DO Work Phone: [facility] Payers Date Payer Category Payer Self-pay 2022 Medicare A[employer]NA MEDICARE A DVANTAGE AETNA MEDICARE REPLACEMENT [id number] 2022-Present [address] [place] [address] [id number] 2002 Private Health Insurance [id number] 1955 Unknown [id number] 2.16.840.1.700132.3.579.2. 727 1953 Unknown [id number] 2..840.1.745794.3.579.2. 1259 1953 Unknown [id number] 2.16.840.1.152022.3.579.2. 1259 1953 Unknown [id number] 2.16.840.1.753781.3.579.2. 1259 1953 Unknown [id number] 2.16.840.1.467524.3.579.2. 1258 1953 Unknown [id number] 2.16.840.1.806981.3.579.2. 1258 1953 Unknown [id number] 2.16.840.1.985311.3.579.2. 1258 1953 Unknown [id number] 2.16.840.1.188582.3.579.2. 1258 1953 Unknown [id number] 2.16.840.1.460723.3.579.2. 1258 1953 Unknown [id number] 2.16.840.1.343994.3.579.2. 1258 1953 Unknown [id number] 2.16.840.1.109391.3.579.2. 1258 1953 Unknown [id number] 2..840.1.285598.3.579.2. 1258 1953 Unknown [id number] 2.16.840.1.216263.3.579.2. 1258 1953 Unknown [id number] 2.16.840.1.586409.3.579.2. 1258 1953 Unknown [id number] 2.16.840.1.206505.3.579.2. 1258 1953 Unknown [id number] 2.16.840.1.602862.3.579.2. 1258 1953 Unknown [id number] 2.16.840.1.349807.3.579.2. 1259 Unknown [id number] 2.16.840.1.715648.3.579.2. 531 Unknown [id number] 2.16.840.1.982359.3.579.2. 531 Unknown [id number] 2.16.840.1.956934.3.579.2. 531 Unknown [id number] 2.16.840.1.824555.3.579.2. 531 Unknown [id number] 2.16.840.1.718113.3.579.2. 531 Unknown [id number] 2.16.840.1.588783.3.579.2. 531 Unknown [id number] 2.16.840.1.050897.3.579.2. 531 Unknown [id number] 2.16.840.1.352441.3.579.2. 531 Social History Date Type Detail Facility Start: 09-21-2022 End: 06-13-2023 Tobacco smoking status NHIS Ex-smoker (finding) [facility] Start: 1955 Sex Assigned At Male F [facility] Start: 05-18-2023 End: 05-31-2023 Sex Assigned At [facility] End: 04-17-1989 History of tobacco use Current smoker [facility] End: 04-17-1989 History of tobacco use Cigarette Smoker [facility] Start: 11-17-2022 Tobacco use and exposure Smokeless tobacco non-user [facility] Start: 05-18-2023 End: 05-31-2023 History of Social function [facility] Start: 1955 Sex Assigned At Not on file [facility] Tobacco smoking status No Smokin g Status Entered [facility] Goals Date Patient Goal Desired Activity /State Clinical Notes 09-21-2022 to 11-27-2023 Janneth Villegas, DO - 05/31/2023 3:15 PM ESTFredbarb Villegas, DO - 05/18/2023 2:00 PM EST Note Date & Type Note Facility 11-27-2023 Note Patient: Charles hernandez Procedure Summary Date: 11/27/23 Room / Location: [facility] Invasive Surgery [place] Anesthesia Start: 1041 Anesthesia Stop: 1107 Procedure: [...] per anesthesia protocol. No notable events documented. [facility] 11-27-2023 Note Patient: Charles hernandez Procedure Summary Date: 11/27/23 Room / Location: [facility] Anesthesia Start: 1041 Anesthesia Stop: Procedure: EGD Diagnosis: Alcoholic cirrhosis of liver with ascites (CMS/HCC) Scheduled Providers: Irena Johnson MD; Jl Kent MD; VALDEMAR Heath Responsible Provider: Jl Kent MD Anesthesia Type: MAC ASA Status: 3 Anesthesia Post [facility] Patient Monitor: direct observation Transport: uneventful Patient condition is: stable [facility] 11-27-2023 Note Patient: Charles hernandez Procedure Information Date/Time: 11/27/23 1130 Scheduled providers: Irena Johnson MD; Jl Kent MD; VALDEMAR Heath Procedure: EGD Location: [facility] Relevant Problems Cardio Denies chest pain/SOB (+) [...] Plan discussed with CAA. Additional Equipment Requests [facility] 11-08-2023 Note Refills provided [facility] 10-16-2023 Note Emma MALDONADO approved through 04/10/2024, previous approval. Pt has not been on lactulose, prescribed lactulose on the same day as Xifaxan. Based on discussion with annual income for 2 people in the household is $52,000. Should qualify for PAP. Will email provider and pt portions. Carmella Olivo, PharmD, BCACP 10/16/23 1:56 PM [facility] [phone] [facility] 10-16-2023 Note Patient assistance a pplication approved through [employer]. Approval good through 04/16/2024. Patient Case ID/Approval Number: [id number]. Notified patient and will follow up to confirm shipment/delivery is scheduled. Yamini Camarillo, [facility] 10/23/23 10:[address] [facility] 10-16-2023 Note Patient said the del george has been scheduled and is on its way. Aware they have to call [facility] every time they need a refill. Have no further questions. Will no longer follow up. Darnell Razo [facility] 10/25/23 10:[address] [facility] 10-16-2023 Note Have received pt. Po rtion of PAP form still waiting on prescribers portion. Re faxed the forms over to GI. Send PAP forms in once prescribers portion is signed. Darnell Razo [facility] 10/20/23 1:[address] [facility] 10-13-2023 Note I called and discuss ed the results of his labwork with the patient. With his sodium level being slightly below baseline, we will have him repeat his labs prior to EGD tomorrow. He expressed clear understanding. If he continues to have low sodium, we may need to consider holding diuretics. [facility] 10-13-2023 Note Attestation signed by Irena [...] documentation in this note for specific details. [facility] Gastroenterology Follow-up visit CHIEF COMPLAINT [...] function of stomach (more content not included)... [facility] 09-14-[address] ordered to rule o ut chronic mesenteric ischemia [facility] 08-07-2023 Note Attestation signed by Arias Jesus MD at 08/07/2023 2:45 PM I personally saw the patient with the fellow, I performed/participated in the critical/david portions of the service, I was directly involved in the management and treatment plan of the patient. I discussed the case management with the fellow and agree with the findings and plan as documented by the fellow. [facility] Gastroenterology New Patient Visit - [...] % gel, Apply topically., Disp: , Rfl: uevbnqktu-dpljsa-aesrwb-petrol 5-0.25-14.4-15 % cream, APPLY TO AFFECTED AREA [...] Rfl: zolpidem (A (more content not included)... [facility] 05-31-2023 History of Present illness Narrative [...] has been scheduled. documented in this encounter [facility] 05-18-2023 History of Present illness Narrative Images from the original note were not included. Charles Blandon 1955 Charles Blandon is a 67 y.o. male presents with chief complaint of painful hemorrhoid HPI: HPI Huber states he has a hemorrhoid for the last 5-6 weeks. He was seen by Dr. Carroll's REHABILITATION SUPERVISOR who referred him to our office. Huber [...] weeks for recheck documented in this encounter [facility] 05-11-2023 Evaluation note Encounter Date Diagnosis Assessment Notes Apr, Nausea (ICD-10 - R11.0) Apr, Cirrhosis of liver (ICD-10 - K74.60) Apr, Early satiety (ICD-10 - R68.81) [facility] Other 12-28-2023 Evaluation note* Encounter Date Diagnosis Assessment Notes Treatment Notes Treatment Clinical Notes Mar, Lower abdominal pain (ICD-10 - R10.30) [facility] Other 12-27-2023 Evaluation note* Encounter Date Diagnosis [...] - R68.81) Mar, Bloating (ICD-10 - R14.0) [facility] Other 07-27-2023 Evaluation note* Encounter Date Diagnosis [...] a time. 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 [facility]* Diagnosis Onset Date Resolution Status Cirrhosis acute Dyspepsia and disorder of function of stomach acute Emesis acute Esophageal dysmotility acute [facility] Work Phone: History and physical note Author Lex Carroll [facility] September 21, 2022 8:04am Note Date/Time September 21, 2022 8:04a m [facility] [address] [place] [address] Gastroenterology H&P Signed Patient: Charles Blandon MR#: [id number] : 1955 Acct:[id number] Age/Sex: 67 / M Adm Date: 3 Loc: Room: Type: [facility] Attending Dr: Lex Carroll MD Copies to: [...] signed by Lex Carroll MD> 09/21/22 0804 [facility] Work Phone: History general Narrative - Reported* Type Description Date Medical History hypertension Medical History GERD Surgical History gallbladder Surgical History elbow surgery Surgical History mesh placement [facility] Other Hospital Discharge instructions Additional Instructions DISCHARGE [...] Do NOT operate machinery such as power GTRAN, lawn mowers, snow blowers, sewing machines, etc. [...] problems. -Follow up with PCP. -Office number [phone].[facility] Work Phone: Hospital Discharge instructions No data available for this section [facility] Progress note No data available for this section [facility] Summary Purpose Family History No Family History [...] section and content) DATE CREATED AUTHOR 10/10/2017 [facility] DATE CREATED AUTHOR AUTHOR'S ORGANIZ ATION 07/14/2023 [facility] DATE CREATED AUTHOR AUTHOR'S ORGANIZ ATION 12/15/2023 [facility] DATE CREATED AUTHOR AUTHOR'S ORGANIZ ATION 12/15/2023 [facility] EPIC DATE CREATED AUTHOR AUTHOR'S ORGANIZ ATION 12/18/2023 [facility] Care Teams (unrecognized sec tion and [...] Active Lorna Ortega APRN Attending Provider Active Shield Installer Relationship Specialty Start Date End Date Rusty Delgado MD [address] [facility] [address] [place] [address] PCP - [employer] 04/17/22 Rusty Delgado MD [address] [facility] [address] [place] [address] PCP - General Internal Medicine 11/23/22 Shield Installer Relationship Specialty Start Date End Date Rusty Delgado MD [address] [facility] [address] [place] [address] PCP - [employer] 04/17/22 Rusty Delgado MD [address] [facility] [address] [place] [address] PCP - General Internal Medicine 11/23/22 Team [...] 07, 2023 End: December 07, 2023 Ward Stenr MD Attending Provider Active Start: December 07, [...] Surgery Diagnoses Unspecified hemorrhoids Procedures [place] OFFICE/OUTPATIENT [facility] 60 MINUTES Lorna Ortega MD [address] [facility] [address] [place] [address] [place] [address] [facility] [address] [place] [address] Referral ID Status Reason Start Date Expiration Date V isits Requested Visits Authorized [id number] Closed Specialty Services Required 05/12/2023 11/08/2023 1 [...] BE BASED ON THE PRIMARY CLINICAL RECORDS. [facility]. provides no warranty or guarantee of the accuracy or completeness of information in this document.
[2023-12-20 14:44] LABS: Basophils Percent Auto 0.8 % (0.2-2.0); Eosinophils Absolute Auto 0.1 10^3/uL (0.0-0.7); Eosinophils Percent Auto 2.7 % (0.9-7.0); Hematocrit 37.6 % (42.0-54.0); Hemoglobin 12.7 g/dL (14.0-18.0); Immature Granulocytes Abs Auto 0.02 10^3/uL (0.00-0.03); Immature Granulocytes Pct Auto 0.4 % (0.0-0.5); Lymphocytes Absolute Auto 0.7 10^3/uL (1.2-3.8); Lymphocytes Percent Auto 15.2 % (20.5-60.0); Mean Corpuscular HGB Conc 33.8 g/dL (29.9-35.2); Mean Corpuscular Hemoglobin 33.6 pg (25.9-34.0); Mean Corpuscular Volume 99.5 fL (80.0-94.0); Mean Platelet Volume 9.8 fL (9.5-13.5); Monocytes Absolute Auto 0.6 10^3/uL (0.3-0.8); Monocytes Percent Auto 11.9 % (1.7-12.0); Neutrophils Absolute Auto 3.3 10^3/uL (1.4-6.5); Platelet Count 159 10^3/uL (150-450); Red Blood Count 3.78 10^6/uL (4.70-6.10); Red Cell Distribution Width 14.9 % (11.0-15.0); White Blood Count 4.8 10^3/uL (4.0-11.0)
[2023-12-20 14:57] LABS: INR 1.19; Prothrombin Time 12.4 sec (9.0-11.6)
[2023-12-20 15:14] LABS: Alanine Aminotransferase 39 U/L (16-63); Albumin Globulin Ratio 0.5; Albumin Level 2.6 g/dL (3.4-5.0); Alkaline Phosphatase 128 U/L (46-116); Anion Gap 12.4; Aspartate Amino Transferase 57 U/L (15-37); BUN Creatinine Ratio 13.7; Bilirubin Total 1.5 mg/dL (0.2-1.0); Calcium 8.6 mg/dL (8.5-10.1); Carbon Dioxide 27.4 mmol/L (21.0-32.0); Chloride 96 mmol/L (98-107); Estimated GFR (African America >60 (>=60); Estimated GFR (Non-African Ame 54 (>=60); Glucose 181 mg/dL (74-106); Potassium 4.8 mmol/L (3.5-5.1); Sodium 131 mmol/L (136-145); Total Protein 7.6 g/dL (6.4-8.2)
[2023-12-21 08:13] LABS: AFP, Serum, Tumor Marker 2.7 ng/mL (0.0-8.4)
== END 2023-12-20 14:23 | disposition home or self-care (01) ==
LOC: LAB 14:25
PROVIDERS: PCP Internal Medicine
DX: K70.31 Alcoholic cirrhosis of liver with ascites (principal)
CPT/HCPCS: 36415; 80053; 82105; 85025; 85610

== ENCOUNTER 2024-01-03 07:39 | Day surgery (SDC) | payer MEDICARE, SELFPAY ==
[2024-01-03] VITALS (7 sets, daily range): BP systolic 87–125; BP diastolic 60–84; PULSE 60; O2SAT 98
--- NOTE | 2024-01-03 | US_ITS ---
[address] [address] Patient Name: LOYD BLANDON MRN: [id number] date: 1955 Sex: M Assigned Patient Location: Current Patient Location: Accession/Order Number: [id number] Exam Date: 01/03/2024 08:00 Report Date: 01/03/2024 09:39 At the request of: NON-STAFF PHYSICIAN Procedure: US paracentesis abd w/image EXAMINATION: US paracentesis abd w/image HISTORY: Alcohholic Cirrhosis COMPARISON: No relevant comparison available. DESCRIPTION: Informed consent was obtained. The patient was prepped and draped in standard sterile fashion. Ultrasound-guided paracentesis was performed in the usual sterile manner using 1% Xylocaine. FINDINGS: SITE: Right lower quadrant NEEDLE: Paracentesis 8 Fr. catheter over 18 gauge needle MEDICATION: 10 cc 1% buffered lidocaine for local anesthesia FLUID DESCRIPTION: pale yellow clear fluid FLUID VOLUME: 4 L COMPLICATIONS: None LABORATORY: None OTHER: Negative. US/US paracentesis abd w/image IMPRESSION: Technically successful therapeutic paracentesis Electronically authenticated by: AUTUMN FARNSWORTH Date: 01/03/2024 09:39
--- NOTE | 2024-01-03 | XR_ITS ---
The [address] [address] Patient Name: LOYD BLANDON MRN: [id number] date: 1955 Sex: M Assigned Patient Location: Current Patient Location: Accession/Order Number: [id number] Exam Date: 01/03/2024 09:15 Report Date: 01/05/2024 07:09 At the request of: NON-STAFF PHYSICIAN Procedure: XR abdomen 1V EXAMINATION: XR abdomen 1V HISTORY: Diarrhea COMPARISON: No relevant comparison available. FINDINGS: BOWEL GAS PATTERN: No abnormal dilation or deviation. CALCIFICATIONS: None significant. OTHER: Negative. No abnormal gaseous collections. XR/XR abdomen 1V IMPRESSION: Nonobstructive bowel gas pattern Electronically authenticated by: AUTUMN FARNSWORTH Date: 01/05/2024 07:09
--- OUTSIDE RECORDS SUMMARY | 2024-01-03 07:47 | XMS_ITS | CCD ---
Author Organization [facility] CliniSywy Care Team Providers Care Haul Cane Brakeman Name Role Phone CHEMA, TANISHA Unavailable Unavailable TEODORA, ROYCE Unavailable Unavailable CHEMA, TANISHA Unavailable Unavailable COY BLANCHARD Unavailable Unavailable CHEMA, TANISHA Unavailable Unavailable CHEMA, TANISHA Unavailable Unavailable CHEMA, TANISHA Unavailable Unavailable MD Lex Carroll Attending Provider [phone] JUDITH Delgado Primary Care Provider [phone] Lorna Ortega Unavailable TALA Ortega Attending Provider [...] Care Provider MD Ward Stern [facility]ending [facility], DO Devyn Attending Provider [facility], DO Devyn Attending Provider BAKARI, JANNETH H Attending Unavailable LORNA ORTEGA Referring Unavailable ITZKOWITZ, JANNETH H Attending Unavailable ITZKOWITZ, JANNETH H Attending Unavailable ITZKOVICK, JANNETH H Attending Unavailable HEMFABY RACHEL Attending Unavailable BENEDICT, WARD Attending Unavailable HEMFABY RACHEL Referring Unavailable BENEDICT, WARD Referring Unavailable BENEDICT, WARD Referring Unavailable LYNDSEY PATEL Attending Unavailable BENEDICT, WARD Referring Unavailable ROSALINO LAMAS Attending Unavailable RUSTY DELGADO Attending Unavailable RUSTY DELGADO Attending Unavailable RUSTY DELGADO Referring Unavailable HEMFABY RACHEL Attending Unavailable RUSTY DELGADO Attending Unavailable Ward Stern Admitting Unavailable Ward Stern Attending Unavailable Rusty Delgado Primary Care Unavailable [facility], Devyn Admitting Unavailable [facility], Devyn Attending Unavailable Rusty Delgado Primary Care Unavailable Rusty Delgado Primary Care Unavailable Scovanner Lorna M Admitting Unavailable ScovannerLorna Attending Unavailable Rusty Delgado Primary Care Unavailable Scovanner Lorna M Admitting Unavailable Scovanner Lorna Yahaira Attending Unavailable Rusty Delgado Primary Care Unavailable Itzkowitz, Janneth Admitting Unavailable Itzkoanattz, Janneth Attending Unavailable Rusty Delgado Primary Care Unavailable Minh Griffith Admitting UnavailMinh Romero Attending Unavailabl e Rusty Delgado Primary Care Unavailable Itzkowitz, Janneth Attending Unavailable Itzkowitz, Janneth Admitting Unavailable Rusty Delgado Primary Care Unavailable Ward Stern Admitting Unavailable Ward Stern Attending Unavailable IRENA JOHNSON Attending Unavailable IRENA JOHNSON Attending Unavailable ARIAS JESUS Referring Unavailable ARIAS JESUS Referring Unavailable RESEARCH, GENERIC Referring Unavailable JOHNSONIRENA CONTRERAS Admitting Unavailable IRENA JOHNSON Attending Unavailable IVANA, IRENA Referring Unavailable ARIAS JESUS Admitting Unavailable ARIAS JESUS Attending Unavailable ANN MARIE ARIAS Referring Unavailable ARIAS JESUS Attending Unavailable Allergies Allergy Classification Reported Allergen(s) Allergy Type Date of Onset Reaction(s) Facility (1 source) sulfamethoxazole / trimethoprim; Translations: [SULFAMETHOXAZOLE-TR IMETHOPRIM] Drug Allergy 5 AOF [facility] Repository Medications Current Medications Medication Drug [...] June 13, 2023 July 05, 2023 9:01am fzbhcog-hnnqzpllm-oqwr 333-133-5 MG per tablet (1 source) End: 05-18-2023 calcium-magnesium -zinc 333-133-5 MG per tablet Take 1 tablet by mouth in the morning and 1 tablet at noon and 1 tablet in the evening. Take with meals. 0 05/18/2023 Discontinued hydroCHLOROthiazide 25 mg / triamterene 37.5 mg oral capsule (18 sources) Potassium-spari ng Diuretic, Thiazide Diuretic Start: 06-13-2023 End: 07-05-2023 Triamterene-Dunreith chlorothiazid Discontinued CAP June 13, 2023 1:00am [...] Classification Problem Date Documented Da te Episodic/Chronic Acute and unspecified renal failure (2 sources) Acute kidney failure, unspecified; Translations: [Acute kidney failure, unspecified] Onset: 4 Episodic Alcohol-related disorders (2 sources) [...] hypertension] Onset: 3 Resolved: 3 11-17-2022 Chronic Fluid and electrolyte disorders (2 sources) Hypo-osmolality and hyponatremia; Translations: [Hypo-osmolality and hyponatremia] Onset: 4 Episodic Hemorrhoids (6 sources) Internal hemorrhoids grade II; [...] the digestive system] Episodic Other gastrointestinal disorders (3 sources) Diarrhea, unspecified; Translations: [Diarrhea, unspecified] Onset: 4 Episodic Other gastrointestinal disorders (6 sources) Flatulence, eructation and gas pain; Translations: [Abdominal distension (gaseous)] Episodic Other gastrointestinal disorders (6 sources) Loose stool; Translations: [Other fecal abnormalities] Episodic Other gastrointestinal disorders (2 sources) Other ascites; Translations: [Other ascites] Onset: 4 Episodic Other liver diseases (12 [...] [Liver disease, unspecified] Onset: 4 Chronic Other liver diseases (2 sources) Hepatic encephalopathy; Translations: [Hepatic encephalopathy] Onset: 4 Episodic Other nutritional; endocrine; and metabolic disorders (12 [...] abdominal pain, unspecified; Translations: [Epigastric pain] Onset: 05-23-2023 Episodic Deficiency and other anemia (2 sources) Anemia, unspecified; Translations: [Anemia, unspecified] Onset: 08-07-2023 Episodic Nausea and vomiting (16 sources) Nausea; Translations: [Nausea] Onset: 04-26-2023 Episodic [...] Name Value Interpretation Reference Range Facility 36on 01-01-2024 36 Called patient to cl juan jose Lasix dosage, instructed to take Lasix 60mg daily. expressed understanding. I did instruct her that we would like repeat BMP to assess potassium and Creatinine, Monday or Monday. She is planning to have this done at [facility] on Monday. I did provide the fax number to our clinic for results. She is awaiting scheduling for MRI and Abdominal XR at [place]. [facility] 36on 12-29-2023 36 Patient's saucedo stephen in to say that the lab at [facility] told her insurance doesn't cover the Enteric Bacterial DNA stool and it is $1500, they told her if we sent in an order for a stool culture is would be similar and insurance would cover that. Also the lab doesn't do the fecal fat 24 hours, but will do the fecal fat 72 hours. Please advise. [facility] 36 Patient's carmen ng again for clarification of lasix dosage 60mg daily on the office note, 60mg BID on the prescription. She is concerned about giving him the correct dosage and frequency. [facility] Documentationon 12-29-2023 Documentation [id number] Ambrosio Blandon 1955 M Date Provider Department Center 12/29/2023 ZAKIYA GRANADOS [facility] No family history on file [facility] Orders Onlyon 12-29-2023 Orders Only [id number] Ambrosio Blandon 1955 M Date Provider Department Center 12/29/2023 Frida1EKATERINA GLEASON [facility] No family history on file [facility] Telephoneon 12-29-2023 Telephone [id number] Ambrosio Blandon 1955 M Date Provider Department Center 12/29/2023 BROOKLYNN ZEPEDA [facility] No family history on file [facility] 36on 12-28-2023 36 Patient's carmen ng for clarification of Lasix dosage, on discharge plan it is written as 60mg daily, but the pharmacy gave her a bottle of lasix where the sig is written 60mg twice daily. She anxious and wants to make sure she gives him the correct dosage and frequency.Please advise. [facility] Telephoneon 12-28-2023 Telephone [id number] Ambrosio Blandon 1955 M Date Provider Department Center 12/28/2023 [id number] JOSHUA [facility] No family history on file [facility] 37on 12-27-[address] out toda y, please get lab work and stool tests. In 5 days, please get another set of labs to check your kidneys. Please have them sent to us and call us to let us know they have been completed. Please take Aldactone 150mg (3 tablets) once daily. Please take Furosemide 60mg (3 tablets) once daily. Please restart your Carvedilol (for blood pressure and varices). One tablet, taken twice daily. Please check your blood pressure, make sure you are checking your blood pressure, top number should be 90. Please schedule an EGD (endoscopy) by February. Please schedule a repeat MRI of your liver, and time this right after you get a paracentesis (same day). This can be done at [facility]. Please continue Rifaximin 550mg twice daily, and Lactulose once daily for encephalopathy Schedule a follow up appointment in 3 months. Normal [facility] AFP TUMOR MARKERon 4 ALPHA FETOPROTEIN TUMOR MARKER 3 ng/mL Normal 0-9 [facility] Comment on above: Result Comment: INTE RPRETIVE INFORMATION: Alpha Fetoprotein Tumor Marker The [employer] Access DxI AFP method is used. Results obtained with different assay methods or kits cannot be used interchangeably. AFP is a valuable aid in the management of nonseminomatous testicular cancer patients when used in conjunction with information available from the clinical evaluation and other diagnostic procedures. Increased AFP concentrations have also been observed in ataxia telangiectasia, hereditary tyrosinemia, primary hepatocellular carcinoma, teratocarcinoma, gastrointestinal tract cancers with and without liver metastases, and in benign hepatic conditions such as acute viral hepatitis, chronic active hepatitis, and cirrhosis. The result cannot be interpreted as absolute evidence of the presence or absence of malignant disease. The result is not interpretable as a tumor marker in females. Access complete set of age- and/or gender-specific reference intervals for this test in the [employer] Laboratory Test Directory ([employer]). Performed By: [employer] [address] [place] [address] Oven Laborer: Renato Lutz MD, PhD CLIA Number: [id number] Performed By: #### L [id number] #### [facility] ([facility]) [address] [place] [address] CBCon 12-27-2023 Erythrocyte distribution width (RBC) [Ratio] 15.1 % High 11.5-15.0 [facility] Comment on above: Performed By: #### L [id number] #### [facility] ([facility]) [address] [place] [address] ERYTHROCYTE MEAN CORPUSCULAR HEMOGLOBIN CONCENTRATION (G/DL) BY AUTOMATED 33.2 g/dL Normal 32.0-35.0 [facility] Comment on above: Performed By: #### L [id number] #### [facility] ([facility]) [address] [place] [address] Hematocrit (Bld) [Volume fraction] 38.5 % Low 39.0-55.0 [facility] Comment on above: Performed By: #### L [id number] #### [facility] ([facility]) [address] [place] [address] Hemoglobin (Bld) [Mass/Vol] 12.8 g/dL Low 13.0-17.0 [facility] Comment on above: Performed By: #### L [id number] #### [facility] ([facility]) [address] [place] [address] MCH (RBC) [Entitic mass] 32.8 pg Normal 27.0-33.0 [facility] Comment on above: Performed By: #### L [id number] #### [facility] ([facility]) [address] [place] [address] MCV (RBC) [Entitic vol] 98.7 fL High 82.0-98.0 [facility] Comment on above: Performed By: #### L [id number] #### [facility] ([facility]) [address] [place] [address] PLATELETS (10*3/UL) IN BLOOD AUTOMATED COUNT 166 10*3/uL Normal 150-400 [facility] Comment on above: Performed By: #### L [id number] #### [facility] ([facility]) [address] [place] [address] RBC (Bld) [#/Vol] 3.90 10*6/uL Low 4.20-5.70 [facility] Comment on above: Performed By: #### L [id number] #### [facility] ([facility]) [address] [place] [address] WBC (Bld) [#/Vol] 4.72 10*3/uL Normal 4.00-10.60 [facility] Comment on above: Performed By: #### L [id number] #### [facility] ([facility]) [address] [place] [address] COMPREHENSIVE METABOLIC PANE Mayito 12-27-2023 Albumin [Mass/Vol] 3.1 g/dL Low 3.5-5.7 [place] Comment on above: Performed By: #### L [id number] #### [facility] ([facility]) [address] [place] [address] ALP [Catalytic activity/Vol] 120 U/L High 34-104 [facility] Comment on above: Performed By: #### L [id number] #### [facility] ([facility]) [address] [place] [address] ALT [Catalytic activity/Vol] 25 U/L Normal 7-52 [facility] Comment on above: Performed By: #### L [id number] #### [facility] ([facility]) [address] [place] [address] Anion gap [Moles/Vol] 12 mmol/L Normal 7-20 [facility] Comment on above: Performed By: #### L [id number] #### [facility] ([facility]) [address] [place] [address] AST [Catalytic activity/Vol] 46 U/L High 13-39 [facility] Comment on above: Performed By: #### L [id number] #### [facility] ([facility]) [address] [place] [address] Bilirubin [Mass/Vol] 1.9 mg/dL High 0.3-1.0 [facility] Comment on above: Performed By: #### L [id number] #### [facility] ([facility]) [address] [place] [address] Calcium [Mass/Vol] 9.0 mg/dL Normal 8.6-10.3 [place] Comment on above: Performed By: #### L [id number] #### [facility] ([facility]) [address] [place] [address] Chloride [Moles/Vol] 98 mmol/L Normal 98-107 [facility] Comment on above: Performed By: #### L [id number] #### [facility] ([facility]) [address] [place] [address] CO2 [Moles/Vol] 26 mmol/L Normal 21-31 [facility] Comment on above: Performed By: #### L [id number] #### [facility] ([facility]) [address] [place] [address] Creatinine [Mass/Vol] 1.11 mg/dL Normal 0.70-1.30 [facility] Comment on above: Performed By: #### L [id number] #### [facility] ([facility]) [address] [place] [address] GLOMERULAR FILTRATION RATE ML/MIN/1.73 SQ M.PREDICTED 71.4 mL/min/1.73m*2 Normal >60.0 [facility] Comment on above: Result Comment: [facility]???s estimated glomerular filtration rate (eGFR) will [...] group of individuals. Performed By: #### L [id number] #### [facility] ([facility]) [address] [place] [address] Glucose [Mass/Vol] 111 mg/dL High 70-100 [place] Comment on above: Performed By: #### L [id number] #### [facility] ([facility]) [address] [place] [address] Potassium [Moles/Vol] 4.4 mmol/L Normal 3.5-5.1 [facility] Comment on above: Performed By: #### L [id number] #### [facility] ([facility]) [address] [place] [address] Protein [Mass/Vol] 7.3 g/dL Normal 6.0-8.3 [place] Comment on above: Performed By: #### L [id number] #### [facility] ([facility]) [address] [place] [address] Sodium [Moles/Vol] 132 mmol/L Low 136-145 [place] Comment on above: Performed By: #### L [id number] #### [facility] ([facility]) [address] [place] [address] Urea nitrogen [Mass/Vol] 17 mg/dL Normal 7-25 [facility] Comment on above: Performed By: #### L [id number] #### [facility] ([facility]) [address] [place] [address] UREA NITROGEN/CREATININE (MASS RATIO) IN SER/PLAS 15.3 Normal [facility] Comment on above: Performed By: #### L [id number] #### [facility] ([facility]) [address] [place] [address] Labon 12-27-2023 Lab [id number] Ambrosio Blandon 1955 M Date Provider Department Center 12/27/2023 [id number] MP LAB RESOURCE MP DRAW Medical Pavi No family history on file Normal [facility] Office Visiton 12-27-2023 Follow-up visit [id number] Ambrosio Blandon 1955 M Date Provider Department Center 12/27/2023 298-IRENA JOHNSON MP [facility] No family history on file Level of Service:17397 [place] OFFICE/OUTPATIENT ESTABLISHED HIGH MDM 40 MIN () Reason for Visit and Comments: Follow-up [592703] Cirrhosis [239] Ascites [295] Normal [facility] PROTIME-INRon 12-27-2023 INR IN PPP BY COAGULATION ASSAY 1.21 High 0.90-1.10 [facility] Comment on above: Result Comment: ACCC [...] 1995;108:231S-246S. Performed By: #### L [id number] #### [facility] ([facility]) [address] [place] [address] PROTHROMBIN TIME (PT) IN PPP BY COAGULATION ASSAY 15.3 Seconds High 12.3-14.8 [facility] Comment on above: Performed By: #### L [id number] #### [facility] ([facility]) [address] [place] [address] 36on 12-21-2023 36 I called and spoke w ith the patient's in regards to his recent lab work after increasing his diuretics. His creatinine and electrolytes are grossly stable after increasing his Lasix and Aldactone. We will continue with the current regimen of Lasix 40 twice daily and Aldactone 200 mg daily and follow-up in hepatology clinic on 12/27/2023. [facility] Orders Onlyon 12-21-2023 Orders Only [id number] Ambrosio Blandon 1955 M Date Provider Department Center 12/21/2023 [id number], HISTORICAL MP [facility] No family history on file [facility] Telephoneon 12-21-2023 Telephone [id number] Ambrosio Blandon 1955 M [facility] Provider Department Center 12/21/2023 [id number]-JEQVPGIBSON HAZEL MP [facility] No family history on file [facility] Orders Onlyon 12-20-2023 Orders Only [id number] Ambrosio Blandon 1955 M [facility] Provider Department Center 12/20/2023 [id number], HISTORICAL MP [facility] No family history on file [facility] 36on 12-14-2023 36 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. [facility] 36 ----- Message from Serena Hazel MD sent at 12/14/2023 1:36 PM EDT ----- Petra, I sent over a prescription for his diuretics and recommended that they have repeat CMP next week. The order has been placed, can you please fax this to [facility] so that they can get them done next week? Thank you so much ----- Message ----- From: Rachel Doan MA Sent: 12/13/2023 1:35 PM EDT To: Gibson Hazel MD A new document has been added to this order with description CMP results [facility]. [facility] 36 Patient's saucedo d last week asking [...] assess his diuretics further at that time. [facility] Orders Onlyon 12-14-2023 Orders Only [id number] Ambrosio Blandon 1955 M [facility] Provider Department Center 12/14/202300507-LFPIEGIBSON ESPOSITO MP [facility] No family history on file [facility] Telephoneon 12-14-2023 Telephone [id number] Ambrosio Blandon 1955 M Date Provider Department [place] 12/14/202315907-BKIOHGIBSON ESPOSITO MP [facility] No family history on file [facility] Orders Onlyon 12-13-2023 Orders Only [id number] Ambrosio Blandon 1955 M [facility] Provider Department Center 12/13/2023 [id number], MAGALIS [facility] No family history on file [facility] 36on 12-11-2023 36 Patient's repor ts that [...] an appointment in hepatology clinic on 12/27/2023. [facility] 36 of patient call s today stating that when they went for paracentesis at [facility] last week - the patient was admitted. [...] clinic visit with Dr. Johnson on 12/27/2023. [facility] Orders Onlyon 12-11-2023 Orders Only [id number] Ambrosio Blandon 1955 M Date Provider Department Center 12/11/202344124-QRCFDGIBSON HAZEL [facility] No family history on file [facility] Telephoneon 12-11-2023 Telephone [id number] Ambrosio Blandon 1955 M Date Provider Department Center 12/11/202354632-IVREYGIBSON HAZEL [facility] No family history on file [facility] Mayito 12-08-2023 L Specimen: [id number] Received: 12/11/23 Status: HUSAM Req Num: [id number] Spec Type: Cytology Subm Dr: Devyn Winter DO Tissues: A PLEURAL FLUID (PLEUR) Procedures: HE/2, Gross/Micro L4, Cyto Prepstain, PAPSTN Age/ Patient Sex Location Account Attending Physician Charles Blandon 68/M [facility] [id number] Devyn Winter DO SPEC NUM: [id number] RECD: 12/11/23 STATUS: HUSAM COFFEY NUM: [id number] WEN: 12/08/23 [facility] DR: Devyn Winter DO ENTERED: 12/11/[address]: Aliza Arroyo SPEC TYPE: Cytology DEPT: [facility] ENTERED BY: [id number] RECV BY: [id number] ORDERED: HE/2, Gross/Micro L4, Cyto Prepstain, PAPSTN [...] are performed supporting the above interpretation Specimen: [id number] Received: 12/11/23 Status: HUSAM Coffey Num: [id number] Spec Type: Cytology Subm Dr: Devyn Winter DO Tissues: A PLEURAL FLUID (PLEUR) Procedures: HE/2, Gross/Micro L4, Cyto Prepstain, PAPSTN Patient: Charles Blandon [id number] (Continued) Specimen: [id number] Received: 12/11/23 (Continued) Signed (signature on file) Windy Duque MD 12/14/23 1503 Specimen: [id number] Received: 12/11/23 Status: HUSAM Coffey Num: [id number] Spec Type: Cytology Subm Dr: Devyn Winter DO Tissues: A PLEURAL FLUID (PLEUR) Procedures: HE/2, Gross/Micro L4, Cyto Prepstain, PAPSTN Patient: Charles Blandon [id number] (Continued) Specimen: Received: 12/11/23 (Continued) CPT Codes 55125 22504 Specimen: BC Received: 12/11/23 Status: HUSAM Coffey Num: [id number] Spec Type: Cytology Subm Dr: Devyn Winter DO Tissues: A PLEURAL FLUID (PLEUR) Procedures: HE/2, Gross/Micro L4, Cyto Prepstain, PAPSTN Patient: Charles Blandon [id number] (Continued) Signed (signature on file) Chin-Fabio Duque, MD 12/14/[address] [facility] Mayito 12-07-2023 L Specimen: Received: 12/14/23 Status: HUSAM Patelmartin Num: [id number] Spec Type: Cytology Subm Dr: Ward Stern MD Tissues: A ASCITES (ASC) Procedures: HE/2, Gross/Micro L4, Cyto Prepstain, PAPSTN Age/ Patient Sex Location Account Attending Physician Charles Blandon 68/M [facility] [id number] Ward Stern MD SPEC NUM: RECD: 12/14/23 STATUS: HUSAM PATELMartin NUM: [id number] WEN: 12/07/23- SUBM DR: Ward Stern MD ENTERED: 12/14/[address] [facility] [address]: Babs,Lab SPEC TYPE: Cytology DEPT: [facility] ENTERED BY: [id number] RECV BY: [id number] ORDERED: HE/2, Gross/Micro L4, Cyto Prepstain, PAPSTN ORDERED: HE/2, Gross/Micro L4, Cyto Prepstain, PAPSTN Pathological Diagnosis Peritoneal ascites fluid, paracentesis cytology: -No features of malignant cells -Many benign and occasionally reactive mesothelial cells are intermixed with a few other chronic inflammatory cells -Cell block section also showing similar finding except slightly less abundant cellularity Clinical Information Cirrhosis 2nd degree JARAMILLO,liver mass Gross Description Received fresh is 900 ml yellow slightly hazy unfixed fluid for cytology said to have been obtained as abdominal ascites. ThinPrep and cell block preparations are prepared for microscopic examination. (CC/nh) Microscopic Description Microscopic examinations are performed supporting the above interpretation Specimen: Received: 12/14/23 Status: HUSAM Coffey Num: [id number] Spec Type: Cytology Subm Dr: Ward Stern MD Tissues: A ASCITES (ASC) Procedures: HE/Manish, Gross/Micro L4, Cyto Prepstain, PAPSTN Patient: Charles Blandon [id number] (Continued) Specimen: [id number] Received: 12/14/23 (Continued) Signed (signature on file) Windy Duque MD 12/19/23 1440 Specimen: [id number] Received: 12/14/23 Status: HUSAM Coffey Num: [id number] Spec Type: Cytology Subm Dr: Ward Stern MD Tissues: A ASCITES (ASC) Procedures: FAMILIA/2, Gross/Micro L4, Cyto Prepstain, PAPSTN Patient: Charles Blandon [id number] (Continued) Specimen: Received: 12/14/23 (Continued) CPT Codes 17462 15872 Specimen: Received: 12/14/23 Status: HUSAM Coffey Num: [id number] Spec Type: Cytology Subm Dr: Ward Stern MD Tissues: A ASCITES (ASC) Procedures: HE/2, Gross/Micro L4, Cyto Prepstain, PAPSTN Patient: Charles Blandon [id number] (Continued) Signed (signature on file) Chin-Fabio Duque MD 12/19/[address] [facility] 36on 12-01-[address] Hazel in clinic, order placed and faxed to [facility] at [phone] [facility] 36 calls stating t hat patient is in need of an order for paracentesis. Order will need to be sent to [facility]. Normal [facility] Orders Onlyon 12-01-2023 Orders Only [id number] Ambrosio Blandon emma 1955 M Date Provider Department Center 12/01/202343303-MTXQVGIBSON HAZEL [facility] Medical Pavi No family history on file Normal [facility] 11-27-2023 ----- ----- Attestation signed by Irena Johnson [...] PROT B12/Folate/Iron studies: No results found for: [id number] , FOLATE , IRON , TIBC , UIBC , IRONSAT , FERRITIN ASSESSMENT AND PLAN Charles Blandon is a 68 y.o. male who has a known past medical history significant for alcoholic liver cirrhosis, Recinos's esophagus and hepatic encephalopathy is scheduled today for an EGD for esophageal varices screening. Plan: Plan for EGD today for esophageal varices secondary to liver cirrhosis. Normal [facility] POCT GLUCOSE METER UNSOLICIT ED RESULTSon 11-27-2023 Glucose [Mass/Vol] 101 mg/dL Normal 70-105 [facility]ail [facility] Comment on above: Order Comment: Waive d Testing in the ED is performed under the ED CLIA certificate #[id number]. Result Comment: jhag eman Performed By: #### L [id number] #### [facility] (BEAKER) [address] [place] [address] 36on 11-21-2023 36 Appeal submitted Normal [facility] Orders Onlyon 11-21-2023 Orders Only [id number] Ambrosio Blandon emma 1955 M Date Provider Department Center 11/21/2023 41195-YVHPHEBROOKLYNN SINGH MP GI Medical Pavi No family history on file Normal [facility] Prep for Procedureon 024 Prep for Procedure [id number] Ambrosio Blandon emma 1955 M Date Provider Department Center 11/21/2023 298-IRENA JOHNSON [facility] [place] No family history on file Normal [facility] MR ABDOMEN W AND WO CONTRAST [...] signed: Adalid Montiel. 9 Invalid Interpretation Code [facility] Orders Onlyon 11-08-2023 Orders Only [id number] Ambrosio Blandon 1955 M [facility] Provider Department Center 11/08/2023 14846-ZHSEHE, BETH GI Medical Pavi No family history on file Normal [facility] 3611-02-2023 36 Patient's carmen ng to verify that Dr. Jesus will now be prescribing the Famotidine and Baclofen because the previously prescribing physician no longer will now that he is a [facility] GI patient. The preferred pharmacy is [facility] in [place]. Please advise and these orders can then be pended. Normal [facility] Orders Onlyon 11-02-2023 Orders Only [id number] Ambrosio Blandon 1955 M [facility] Department Center 11/02/2023 P8739-BSNMORIM, MAGALIS GI Medical Pavi No family history on file Normal [facility] 36on 10-26-2023 36 I called the patient and his [...] of his liver on the . Normal [facility] Orders Onlyon 10-26-2023 Orders Only [id number] Ambrosio Blandon 1955 M Date Provider Department Center 10/26/202328571-URBXWGIBSON HAZEL [facility] Medical Pavi No family history on file Normal [facility] Telephoneon 10-26-2023 Telephone [id number] Ambrosio Blandon 1955 M Date Provider Department Center 10/26/202314658-FFREOGIBSON HAZEL GI Medical Pavi No family history on file [facility] Orders Onlyon 10-24-2023 Orders Only [id number] Ambrosio Blandon 1955 M Date Provider Department Center 10/24/2023 U8424-KKRJYUZP, MAGALIS MP GI Medical Pavi No family history on file [facility] Orders Onlyon 10-20-2023 Orders Only [id number] Ambrosio Blandon 1955 M Date Provider Department Center 10/20/2023 Olinda-RUFINO MATHUR [facility] No family history on file [facility] 36on 10-18-2023 36 I called the patient [...] we can follow-up on his sodium level. [facility] 36 Patients called stating they were called [...] back from you to clarify some things. [facility] Orders Onlyon 10-18-2023 Orders Only [id number] Ambrosio Blandon 1955 M Date Provider Department Center 10/18/2023 2031EKATERINA GLEASON [facility] No family history on file [facility] Telephoneon 10-18-2023 Telephone [id number] Ambrosio Blandon 1955 M Date Provider Department Center 10/18/202381190-QEBLWGIBSON HAZEL MP GI Medical Pavi No family history on file [facility] Orders Onlyon 10-17-2023 Orders Only [id number] Ambrosio Blandon 1955 M Date Provider Department Center 10/17/202395523-AKYEDGIBSON HAZEL MP GI Medical Pavi No family history on file [facility] Documentationon 10-16-2023 Documentation [id number] Ambrosio Blandon 1955 M Date Provider Department Center 10/16/2023 CARMELLA NICOLE MP GI Medical Pavi No family history on file Reason for Visit and Comments: Specialty Pharmacy Note: Xifaxan PAP [Other] [facility] Prep for Procedureon 024 Prep for Procedure [id number] Ambrosio Blandon 1955 M Date Provider Department Center 10/16/2023 IRENA SCHMIDT [facility] No family history on file [facility] BASIC METABOLIC PANELon 09-16 Anion gap [Moles/Vol] 14 mmol/L Normal 7-20 [facility] Comment on above: Performed By: #### L AB15 #### [facility] (BEAKER) [address] [place] [address] Calcium [Mass/Vol] 9.1 mg/dL Normal 8.6-10.3 [place] Comment on above: Performed By: #### L AB15 #### [facility] ([facility]) [address] [place] [address] Chloride [Moles/Vol] 96 mmol/L Low 98-107 [facility] Comment on above: Performed By: #### L [id number] #### [facility] ([facility]) [address] [place] [address] CO2 [Moles/Vol] 22 mmol/L Normal 21-31 [facility] Comment on above: Performed By: #### L AB15 #### [facility] ([facility]) [address] [place] [address] Creatinine [Mass/Vol] 1.00 mg/dL Normal 0.70-1.30 [facility] Comment on above: Performed By: #### L [id number] #### [facility] ([facility]) [address] [place] [address] GLOMERULAR FILTRATION RATE ML/MIN/1.73 SQ M.PREDICTED 81.0 mL/min/1.73m*2 Normal >60.0 [facility] Comment on above: Result Comment: [facility]???s estimated glomerular filtration rate (eGFR) will [...] individuals. Performed By: #### L AB15 #### [facility] ([facility]) [address] [place] [address] Glucose [Mass/Vol] 108 mg/dL High 70-100 [place] Comment on above: Performed By: #### L AB15 #### [facility] ([facility] [address] [place] [address] Potassium [Moles/Vol] 4.8 mmol/L Normal 3.5-5.1 Uni [facility] Comment on above: Performed By: #### L AB15 #### [facility] ([facility]) [address] [place] [address] Sodium [Moles/Vol] 127 mmol/L Low 136-145 [place] Comment on above: Performed By: #### L AB15 #### [facility] ([facility]) [address] [place] [address] Urea nitrogen [Mass/Vol] 13 mg/dL Normal 7-25 [facility] Comment on above: Performed By: #### L AB15 #### [facility] ([facility]) [address] [place] [address] UREA NITROGEN/CREATININE (MASS RATIO) IN SER/PLAS 13.0 Normal [facility] Comment on above: Performed By: #### L AB15 #### [facility] ([facility]) [address] [place] [address] CBCon 10-13-2023 Erythrocyte distribution width (RBC) [Ratio] 14.2 % Normal 11.5-15.0 [facility] Comment on above: Performed By: #### L [id number] #### [facility] ([facility]) [address] [place] [address] ERYTHROCYTE MEAN CORPUSCULAR HEMOGLOBIN CONCENTRATION (G/DL) BY AUTOMATED 34.5 g/dL Normal 32.0-35.0 [facility] Comment on above: Performed By: #### L [id number] #### [facility] ([facility]) [address] [place] [address] Hematocrit (Bld) [Volume fraction] 38.0 % Low 39.0-55.0 [facility] Comment on above: Performed By: #### L [id number] #### [facility] ([facility]) [address] [place] [address] Hemoglobin (Bld) [Mass/Vol] 13.1 g/dL Normal 13.0-17.0 [facility] Comment on above: Performed By: #### L [id number] #### [facility] ([facility]) [address] [place] [address] MCH (RBC) [Entitic mass] 34.4 pg High 27.0-33.0 [facility] Comment on above: Performed By: #### L [id number] #### [facility] ([facility]) [address] [place] [address] MCV (RBC) [Entitic vol] 99.7 fL High 82.0-98.0 [facility] Comment on above: Performed By: #### L [id number] #### [facility] ([facility]) [address] [place] [address] PLATELETS (10*3/UL) IN BLOOD AUTOMATED COUNT 212 10*3/uL Normal 150-400 [facility] Comment on above: Performed By: #### L [id number] #### [facility] ([facility]) [address] [place] [address] RBC (Bld) [#/Vol] 3.81 10*6/uL Low 4.20-5.70 [facility] Comment on above: Performed By: #### L [id number] #### [facility] ([facility]) [address] [place] [address] WBC (Bld) [#/Vol] 6.20 10*3/uL Normal 4.00-10.60 [facility] Comment on above: Performed By: #### L [id number] #### [facility] ([facility]) [address] [place] [address] HEPATIC FUNCTION PANELon Albumin [Mass/Vol] 3.4 g/dL Low 3.5-5.7 [place] Comment on above: Performed By: #### L AB20 #### [facility] ([facility]) [address] [place] [address] ALP [Catalytic activity/Vol] 114 U/L High 34-104 [facility] Comment on above: Performed By: #### L AB20 #### [facility] ([facility]) [address] [place] [place] [address] ALT [Catalytic activity/Vol] 23 U/L Normal 7-52 [facility] Comment on above: Performed By: #### L [id number] #### [facility] ([facility]) [address] [place] [address] AST [Catalytic activity/Vol] 48 U/L High 13-39 [facility] Comment on above: Performed By: #### L [id number] #### [facility] ([facility]) [address] [place] [address] Bilirubin [Mass/Vol] 1.5 mg/dL High 0.3-1.0 [facility] Comment on above: Performed By: #### L [id number] #### [facility] ([facility]) [address] [place] [address] Magnesium [Mass/Vol] 0.5 mg/dL High 0-0.2 [facility] Comment on above: Performed By: #### L [id number] #### [facility] ([facility]) [address] [place] [address] Protein [Mass/Vol] 7.8 g/dL Normal 6.0-8.3 [place] Comment on above: Performed By: #### L [id number] #### [facility] ([facility]) [address] [place] [address] Labon 10-13-2023 Lab [id number] Ambrosio Blandon 1955 M Date Provider Department Center 10/13/20234-[facility] MP LAB RESOURCE MP DRAW Medical Pavi No family history on file Normal [facility] Office Visiton 10-13-2023 Follow-up visit [id number] Ambrosio Blandon 1955 M Date Provider Department Center 10/13/2023 298-TRACY JOHNSONA MP GI Medical Pavi No family history on file Level of Service:20240 [place] OFFICE/OUTPATIENT ESTABLISHED HIGH MDM 40 MIN () Reason for Visit and Comments: Cirrhosis [239] Ascites [295] Normal [facility] PROTIME-INRon 10-13-2023 INR IN PPP BY COAGULATION ASSAY 1.17 High 0.90-1.10 [facility] Comment on above: Result Comment: ACCC [...] 1995;108:231S-246S. Performed By: #### L [id number] #### [facility] (BEAKER) [address] [place] [address] PROTHROMBIN TIME (PT) IN PPP BY COAGULATION ASSAY 14.9 Seconds High 12.3-14.8 [facility] Comment on above: Performed By: #### L [id number] #### [facility] (BEAKER) [address] [place] [address] Orders Onlyon 10-06-2023 Orders Only [id number] Ambrosio Blandon emma 1955 M Date Provider Department Center 10/06/2023 [id number], HISTORICAL MP GI Medical Pavi No family history on file Normal [facility] Mayito 10-03-2023 L Specimen: Received: 10/04/23 Status: HUSAM Coffey Num: [id number] Spec Type: Cytology Subm Dr: Arias Jesus MD Tissues: A ASCITES (ASC) Procedures: HE/2, Gross/Micro L4, Cyto Prepstain, PAPSTN Age/ Patient Sex Location Account Attending Physician Charles Blandon 68/M LABELL [id number] Ward Stern MD SPEC NUM: [id number] RECD: 10/04/23 STATUS: HUSAM COFFEY NUM: [id number] WEN: 10/03/[address]: Arias Jesus MD ENTERED: 10/04/[address]: Babs,Lab Ward Stern MD SPEC TYPE: Cytology DEPT: [facility] ENTERED BY: [id number] RECV BY: [id number] ORDERED: HE/2, Gross/Micro L4, Cyto Prepstain, PAPSTN ORDERED: HE/2, Gross/Micro L4, Cyto Prepstain, PAPSTN Pathological Diagnosis Ascites fluid cytology: Atypical cells noted. Clinical Information cirrhosis, liver lesion Gross Description Received is 1000 ml yellow cloudy unfixed fluid for cytology said to have been obtained as abdominal ascites fluid. ThinPrep and cell block preparations are prepared for microscopic examination. (IL/ma) CPT Codes 81357 Specimen: [id number] Received: 10/04/23 Status: HUSAM Coffey Num: [id number] Spec Type: Cytology Subm Dr: Arias Jesus MD Tissues: A ASCITES (ASC) Procedures: HE/2, Gross/Micro L4, Cyto Prepstain, PAPSTN Patient: Charles Blandon [id number] (Continued) Signed (signature on file) Linette Bean MD 10/05/23 1340 Normal [facility] Orders Onlyon 09-27-2023 Orders Only [id number] Ambrosio Blandon 1955 M Date Provider Department Center 09/27/2023 HARSHA FELIX [facility] GI [facility] No family history on file Normal [facility] CREATININE, SERUMon 09-25-19 Creatinine [Mass/Vol] 1.06 mg/dL Normal 0.70-1.30 Uni [facility] Comment on above: Performed By: #### L [id number] ####[facility] (BEAKER)[address] [place] [address] GLOMERULAR FILTRATION RATE ML/MIN/1.73 SQ M.PREDICTED 75.5 mL/min/1.73m*2 Normal >60.0 [facility] Comment on above: Result Comment: [facility]???s estimated glomerular filtration rate (eGFR) will [...] of individuals. Performed By: #### L AB383 ####[facility] (BEAKER)[address] [place] [address] CTA ABDOMEN PELVIS W IV CONT Hailey [...] Gan MD. Not Vldtd Invalid Interpretation Code [facility] Labon 09-25-2023 Lab [id number] Ambrosio Blandon emma 1955 M Date Provider Department Center 09/25/2023 2245-[facility] OPD LAB RESOURCE [facility] OPD [facility] No family history on file Normal [facility] Orders Onlyon 09-23-2023 Orders Only [id number] Jamia,Wil emma 1955 M Date Provider Department Center 09/23/2023 204-HARSHA CONNER [facility] GI [facility] No family history on file Normal [facility] Orders Onlyon 09-15-2023 Orders Only [id number] Ambrosio Blandon emma 1955 M Date Provider Department Center 09/15/2023 BROOKLYNN ZEPEDA GI Medical Pavi No family history on file Normal [facility] Orders Onlyon 09-14-2023 Orders Only [id number] Jamia,Wil emma 1955 M Date Provider Department Center 09/14/2023 BROOKLYNN ZEPEDA MP GI Medical Pavi No family history on file Normal [facility] Orders Onlyon 08-28-2023 Orders Only [id number] Jamia,Wil emma 1955 M Date Provider Department Center 08/28/2023 [id number]-PQXCYZKZMAGALIS GI Medical Pavi No family history on file Normal [facility] Orders Onlyon 08-24-2023 Orders Only [id number] Ambrosio Blandon 1955 M Date Provider Department Center 08/24/2023 D8710-DTFJWUCR, MAGALIS MP GI Medical Pavi No family history on file [facility] 29on 08-09-2023 29 Addended by: ARISA JESUS on: 08/09/2023 12:50 PM Modules accepted: Orders Normal [facility] Orders Onlyon 08-09-2023 Orders Only [id number] Ambrosio Blandon 1955 M Date Provider Department Center 08/09/2023 57717-MYDEVJCJASON SANTIZO MP GI Medical Pavi No family history on file [facility] Office Visiton 08-07-2023 Follow-up visit [id number] Ambrosio Blandon 1955 M Date Provider Department Center 08/07/2023 294-ARIAS JESUS GI Medical Pavi No family history on file Level of Service:61236 [place] OFFICE/OUTPATIENT NEW LOW MDM 30 MINUTES (GC) Reason for Visit and Comments: New Patient [632] Weight Loss [219943] - 30 pound weight loss since . Pt recently had surgery for 3 polyps removed and 1 hemorrhoid removal. Dyskenisia of esophgaus [Other] Nausea [70] Vomiting [120] - Pt has a urge to but does not vomit. [facility] Mayito 06-13-2023 L Specimen: [id number] Received: 06/14/23 Status: HUSAM Coffey Num: [id number] Spec Type: Surgical Subm Dr: Janneth Villegas DO Tissues: A Hemorrhoids (HEMORRHOID 9:00) Procedures: HE, Gross/Micro L3 Age/ Patient Sex Location Account Attending Physician Charles Blandon 67/M [place] [id number] Janneth Villegas DO SPEC NUM: [id number] RECD: 06/14/23 STATUS: HUSAM COFFEY NUM: [id number] WEN: 06/13/23-[address]: Janneth Villegas DO ENTERED: 06/14/[address]: SPEC TYPE: Surgical DEPT: S ORDERED: HE, Gross/Micro L3 ORDERED: FAMILIA, Gross/Micro L3 Pathological Diagnosis Hemorrhoid at 9:00, [...] cut surfaces with diffusely dilated blood-filled spaces. Political Director sections are submitted in 1 cassette as follows: A1 - 1 volunteer patient representative section from each fragment to demonstrate change in mucosal types of the largest fragment CPT Codes 45957 Specimen: [id number] Received: 06/14/23 Status: HUSAM Coffey Num: [id number] Spec Type: Surgical Subm Dr: Janneth Villegas, Tissues: A Hemorrhoids (HEMORRHOID 9:00) Procedures: FAMILIA Gross/Micro L3 Patient: Charles Blandon [id number] (Continued) Signed (signature on file) Linette Bean MD 06/27/23 2239 Normal [facility] Automated basophil %Ordered By: Janneth Villegas on 06-02-2023 Basophils/100 WBC (Bld) 0.7 % Normal . [facility] Comment on above: Performed By: #### B MP, CBC #### [facility] [address] [place] [address] Automated basophil countOrde red By: Janneth Villegas on 06-02-2023 Basophils (Bld) [#/Vol] 0.0 10*3/uL Normal 0.0-0.2 [facility] Comment on above: Result Comment: PERF ORMED BY: [address] [place] [address] PATHOLOGIST [employer] MILLING MACHINE OPERATOR CLARK LEARY M.D. Performed By: #### B MP, CBC #### [address] Automated blood monocyte cou ntOrdered By: Janneth Villegas on 06-02-2023 Monocytes (Bld) [#/Vol] 0.9 10*3/uL High 0.0-0.8 [facility] Comment on above: Performed By: #### B MP, CBC #### [facility] [address] [place] [address] Automated eosinophil %Ordere d By: Janneth Villegas on 06-02-2023 Eosinophils/100 WBC (Bld) 1.9 % Normal . [facility] Comment on above: Performed By: #### B MP, CBC #### [address] Automated eosinophil countOr dered By: Janneth Villegas on 06-02-2023 Eosinophils (Bld) [#/Vol] 0.1 10*3/uL Normal 0.0-0.45 [facility] Comment on above: Performed By: #### B MP, CBC #### [address] Automated monocyte %Ordered By: Janneth Villegas on 06-02-2023 Monocytes/100 WBC (Bld) 15.7 % Normal . [facility] Comment on above: Performed By: #### B MP, CBC #### [address] Automated neutrophil %Ordere d By: Janneth Villegas on 06-02-2023 Neutrophils/100 WBC (Bld) 68.5 % Normal . [facility] Comment on above: Performed By: #### B MP, CBC #### [address] Basic Metabolic Panelon 05-18 GFR/1.73 sq M.predicted MDRD (S/P/Bld) [Vol rate/Area] mL/min/{1.73_m2} Normal [facility] Comment on above: Performed By: #### B MP, CBC #### [address] Calcium [Mass/volume] in Ser um or PlasmaOrdered By: Janneth Villegas on 06-02-2023 Calcium [Mass/Vol] 8.6 mg/dL Normal 8.6-10.3 [facility] Comment on above: Result Comment: PERF ORMED BY: [place] [address] PATHOLOGIST CNC MILLING MACHINE OPERATOR CLARK LEARY M.D. Performed By: #### B MP, CBC #### [address] Carbon dioxide, total [Moles /volume] in Serum or PlasmaOrdered By: Janneth Villegas on 06-02-2023 CO2 [Moles/Vol] 27.3 mmol/L Normal 21.0-31.0 [facility] Comment on above: Performed By: #### B MP, CBC #### [address] Chloride [Moles/volume] in S mateo or PlasmaOrdered By: Janneth Villegas on 06-02-2023 Chloride [Moles/Vol] 96 mmol/L Low 98-107 [facility] Comment on above: Performed By: #### B MP, CBC #### [address] Complete Blood Count Auto Di ffon 06-02-2023 Mean Corpuscular HGB Conc 35.2 g/dL Normal 32.5-35.6 [facility] Comment on above: Performed By: #### B MP, CBC #### [address] NRBC% 0.1 /100{WBC} Normal 0-0.5 [facility] Comment on above: Performed By: #### B MP, CBC #### [address] Creatinine [Mass/volume] in Serum or PlasmaOrdered By: Janneth Villegas on 06-02-2023 Creatinine [Mass/Vol] 1.07 mg/dL Normal 0.70-1.30 [facility] Comment on above: Performed By: #### B MP, CBC #### [address] ECG 12 lead ECGon 06-02-2023 ECG 12 lead ECG [facility] Main [place] [address] [place] [address] Electrocardiograph Report Signed Patient: Charles Blandon MR#: [id number] 66 : 1955 Acct:[id number] Age/Sex: 67 / M ADM Date: 06/02/23 Loc: PS Room: Type: [facility] Attending Dr: Janneth Villegas DO Ordering Provider: [...] previous ECGs available Confirmed by Gurpreet Dyson ([id number]) on 06/02/2023 6:21:10 PM Referred By: DANNY VILLEGAS Electronically Signed By:Gurpreet Dyson Transcribed By: MUS Signed By Gurpreet Dyson MD 06/02/23 1821 Normal [facility] Erythrocyte distribution wid th [Ratio] by Automated countOrdered By: Janneth Villegas on 06-02-2023 Erythrocyte distribution width (RBC) [Ratio] 13.8 % Normal 12.0-14.8 [facility] Comment on above: Performed By: #### B MP, CBC #### [facility] [address] [id number] [place] Erythrocytes [#/volume] in B lood by Automated countOrdered By: Janneth Villegas on 06-02-2023 RBC (Bld) [#/Vol] 3.45 10*6/uL Low 3.90-5.60 [facility] Comment on above: Performed By: #### B MP, CBC #### [facility] [address] [id number] [place] Glucose [Mass/volume] in Ser um or PlasmaOrdered By: Janneth Villegas on 06-02-2023 Glucose [Mass/Vol] 132 mg/dL High 70-100 [facility] Comment on above: ADA recommended refe rence rangeRandom Glucose Reference Range is dependent on time and content of last meal. Glucose of more than 200 mg/dL in a nonstressed, ambulatory subject supports the diagnosis of Diabetes Mellitus. Result Comment: [place] om Glucose Reference Range is dependent on time and content of last meal. Glucose of more than 200 mg/dL in a nonstressed, ambulatory subject supports the diagnosis of Diabetes Mellitus. ADA recommended reference range Performed By: #### B MP, CBC #### [facility] [address] Hematocrit [Volume Fraction] of Blood by Automated countOrdered By: Janneth Villegas on 06-02-2023 Hematocrit (Bld) [Volume fraction] 35.5 % Low 38.8-50.0 [facility] Comment on above: Performed By: #### B BRADLEY, CBC #### [place] [address] [place] Hemoglobin [Mass/volume] in BloodOrdered By: Janneth Villegas on 06-02-2023 Hemoglobin (Bld) [Mass/Vol] 12.5 g/dL Low 13.0-17.0 [facility] Comment on above: Performed By: #### B BRADLEY, CBC #### [place] [address] [place] Leukocytes [#/volume] correc jamila for nucleated erythrocytes in Blood by Automated counOrdered By: Janneth Villegas on 06-02-2023 WBC corrected for nucl RBC Auto (Bld) [#/Vol] 5.7 10*3/uL 4.1-10.5 [facility] Leukocytes [#/volume] in Blo od by Automated countOrdered By: Janneth Villegas on 06-02-2023 WBC (Bld) [#/Vol] 5.7 10*3/uL Normal 4.1-10.5 [facility] Comment on above: Performed By: #### B BRADLEY, CBC #### [place] [address] [place] Lymphocytes [#/volume] in Bl ood by Automated countOrdered By: Janneth Villegas on 06-02-2023 Lymphocytes (Bld) [#/Vol] 0.7 10*3/uL Low 1.00-4.8 [facility] Comment on above: Performed By: #### B MP, CBC #### [facility] [address] [place] [address] Lymphocytes/100 leukocytes i n Blood by Automated countOrdered By: Janneth Villegas on 06-02-2023 Lymphocytes/100 WBC (Bld) 13.2 % Normal . [facility] Comment on above: Performed By: #### B MP, CBC #### [address] MCH [Entitic mass] by Automa jamila countOrdered By: Janneth Villegas on 06-02-2023 MCH (RBC) [Entitic mass] 36.2 pg High 27.5-35.2 [facility] Comment on above: Performed By: #### B MP, CBC #### [address] MCHC Auto (RBC) [Mass/Vol]Or dered By: Janneth Villegas on 06-02-2023 MCHC (RBC) [Mass/Vol] 35.2 g/dL 32.5-35.6 [facility] MCV [Entitic volume] by Auto mated countOrdered By: Janneth Villegas on 06-02-2023 MCV (RBC) [Entitic vol] 102.9 fL High 83.5-101 [facility] Comment on above: Performed By: #### B MP, CBC #### [address] Neutrophils [#/volume] in Bl ood by Automated countOrdered By: Janneth Villegas on 06-02-2023 Neutrophils (Bld) [#/Vol] 3.9 10*3/uL Normal 1.8-7.7 [facility] Comment on above: Performed By: #### B MP, CBC #### [facility] [address] No Panel InformationOrdered By: Janneth Villegas on 06-02-2023 Estimated GFR (CKD-EPI) > 60.0 mL/Min [facility] Creatinine Clearance (Chem N/A [facility] Nucleated erythrocytes [Pres ence] in Blood by Automated countOrdered By: Janneth Villegas on 06-02-2023 Nucleated RBC Auto Ql (Bld) 0.1 /100{WBC} 0-0.5 [facility] Platelet mean volume [Entiti c volume] in Blood by Automated countOrdered By: Janneth Villegas on 06-02-2023 Platelet mean volume (Bld) [Entitic vol] 8.1 fL Normal 6.6-10.1 [facility] Comment on above: Performed By: #### B MP, CBC #### [address] Platelets [#/volume] in Bloo d by Automated countOrdered By: Janneth Villegas on 06-02-2023 Platelets (Bld) [#/Vol] 153 10*3/uL Normal 150-450 [facility] Comment on above: Performed By: #### B MP, CBC #### [address] Potassium [Moles/volume] in Serum or PlasmaOrdered By: Janneth Villegas on 06-02-2023 Potassium [Moles/Vol] 4.8 mmol/L Normal 3.5-5.1 [facility] Comment on above: Performed By: #### B MP, CBC #### [facility] [address] [place] [address] Serum or plasma anion gap de terminationOrdered By: Janneth Villegas on 06-02-2023 Anion gap [Moles/Vol] 13.5 mmol/L Normal 6.0-15.0 [facility] Comment on above: Performed By: #### B MP, CBC #### [address] Sodium [Moles/volume] in Ser um or PlasmaOrdered By: Janneth Villegas on 06-02-2023 Sodium [Moles/Vol] 132 mmol/L Low 136-145 [facility] Comment on above: Performed By: #### B MP, CBC #### [facility] [address] [place] [id number] [facility] Urea nitrogen [Mass/volume] in Serum or PlasmaOrdered By: Janneth Villegas on 06-02-2023 Urea nitrogen [Mass/Vol] 12 mg/dL Normal 7-25 [facility] Comment on above: Performed By: #### B MP, CBC #### [facility] [address] [place] gastric emptying studyon 04-26-2023 [place] gastric emptying study [facility] Main [place] [address] [place] [address] Nuclear Medicine Report Signed Patient: Charles Blandon MR#: [id number] 66 : 1955 Acct:[id number] Age/Sex: 67 / M ADM Date: 04/26/23 Loc: [place] Room: Type: [facility] Attending Dr: Lorna Ortega ENROBING MACHINE OPERATOR Copies to: Morales Alvarez Jr, DO Ryan M Scovanner, APRN Ordering Provider: Lorna Ortega APRN Date of Service: 04/26/23 [place] gastric emptying study: Nausea;Early satiety GASTRIC EMPTYING [...] Alvarez Jr., D.OAshley04/26/2023 10:18 AM Dictation Location: [place] [address] Transcribed By: [facility] 04/26/23 1018 Dictated By: Morales Alvarez Jr, DO 04/26/23 1017 Signed By: 04/26/23 1018 Normal [facility] Albumin [Mass/volume] in Ser um or Plasma by Bromocresol green (BCG) dye binding methoOrdered By: Lorna Ortega on 04-12-2023 Albumin BCG dye [Mass/Vol] 3.0 g/dL 3.5-5.7 [facility] Bilirubin.total [Mass/volume ] in Serum or PlasmaOrdered By: Lorna Ortega on 04-12-2023 Bilirubin [Mass/Vol] 1.3 mg/dL High 0.3-1.0 [facility] Comment on above: Samples from [...] Performed By: #### C MP #### [facility] [address] Calcium [Mass/volume] in Ser um or PlasmaOrdered By: Lorna Ortega on 04-12-2023 Calcium [Mass/Vol] 8.3 mg/dL Low 8.6-10.3 [facility] Comment on above: Order Comment: Reaso n for Exam Cirrhosis of liver Performed By: #### C MP #### [facility] [address] [place] [address] [place] Carbon dioxide, total [Moles /volume] in Serum or PlasmaOrdered By: Lorna Ortega on 04-12-2023 CO2 [Moles/Vol] 27.3 mmol/L Normal 21.0-31.0 [facility] Comment on above: Order Comment: Reaso n for Exam Cirrhosis of liver Performed By: #### C MP #### [facility] [address] Comprehensive Metabolic Pane mayito 04-12-2023 Albumin [Mass/Vol] 3.554022 g/dL Low 3.5-5.7 g/dL [facility] Bilirubin [Mass/Vol] 1.2987084 mg/dL High 0.3- 1.0 mg/dL [facility] Calcium [Mass/Vol] 8.6736376 mg/dL Low 8.6-10 .3 mg/dL [facility] CO2 [Moles/Vol] 27.49796806 mmol/L Normal 21.0-3 1.0 mmol/L [facility] Creatinine [Mass/Vol] 0.37406195 mg/dL Normal 0. 70-1.30 mg/dL [facility] Potassium [Moles/Vol] 5.53792071 mmol/L Normal 3 .5-5.1 mmol/L [facility] Protein [Mass/Vol] 6.427137 g/dL Low 6.4-8.9 g/dL [facility] Other Comprehensive Metabolic Panel 3.3 g/dL [facility] Albumin [Mass/Vol] 3.0 g/dL Low 3.5-5.7 [facility] Comment on above: Order Comment: Reaso n for Exam Cirrhosis of liver Performed By: #### C MP #### [facility] [address] GFR/1.73 sq M.predicted MDRD (S/P/Bld) [Vol rate/Area] mL/min/{1.73_m2} Normal [facility] Comment on above: Order Comment: Reaso n for Exam Cirrhosis of liver Performed By: #### C MP #### [facility] [address] Comprehensive Metabolic Pane lOrdered By: Lorna Ortega on 04-12-2023 Albumin/Globulin [Mass ratio] 0.9 {ratio} Normal [facility] Comment on above: Order Comment: Reaso n for Exam Cirrhosis of liver Performed By: #### C MP #### [facility] [address] [place] [address] ALP [Catalytic activity/Vol] 158 U/L High 34-104 [facility] Comment on above: Order Comment: Reaso n for Exam Cirrhosis of liver Result Comment: PERF ORMED BY: [place] [address] PATHOLOGIST [employer]NC MILLING MACHINE OPERATOR CLARK LEARY M.D. Performed By: #### C MP #### [facility] [address] [place] [address] ALT [Catalytic activity/Vol] 35 U/L Normal 7-52 [facility] Comment on above: Order Comment: Reaso n for Exam Cirrhosis of liver Performed By: #### C MP #### [facility] [address] [place] [address] AST [Catalytic activity/Vol] 76 U/L High 13-39 [facility] Comment on above: Order Comment: Reaso n for Exam Cirrhosis of liver Performed By: #### C MP #### [address] Chloride [Moles/Vol] 95 mmol/L Low 98-107 [facility] Comment on above: Order Comment: Reaso n for Exam Cirrhosis of liver Performed By: #### C MP #### [facility] [address] [place] [address] Glucose [Mass/Vol] 94 mg/dL Normal 70-100 [facility] Comment on above: ADA recommended refe rence rangeRandom Glucose Reference Range is dependent on time and content of last meal. Glucose of more than 200 mg/dL in a nonstressed, ambulatory subject supports the diagnosis of Diabetes Mellitus. Order Comment: Reaso n for Exam Cirrhosis of liver Result Comment: [place] om Glucose Reference Range is dependent on time and content of last meal. Glucose of more than 200 mg/dL in a nonstressed, ambulatory subject supports the diagnosis of Diabetes Mellitus. ADA recommended reference range Performed By: #### C MP #### [facility] [address] [place] [id number] [place] Sodium [Moles/Vol] 127 mmol/L Low 136-145 [facility] Comment on above: Order Comment: Reaso n for Exam Cirrhosis of liver Performed By: #### C MP #### [facility] [address] [place] [id number] [place] Urea nitrogen [Mass/Vol] 9 mg/dL Normal 7-25 [facility] Comment on above: Order Comment: Reaso n for Exam Cirrhosis of liver Performed By: #### C MP #### [facility] [address] [place] [address] [place] Creatinine [Mass/volume] in Serum or PlasmaOrdered By: Lorna Ortega on 04-12-2023 Creatinine [Mass/Vol] 0.81 mg/dL Normal 0.70-1.30 [facility] Comment on above: Order Comment: Reaso n for Exam Cirrhosis of liver Performed By: #### C MP #### [facility] [address] [place] [address] No Panel InformationOrdered By: Lorna Ortega on 04-12-2023 Estimated GFR (CKD-EPI) > 60.0 mL/Min [facility] Creatinine Clearance (Chem N/A [facility] Potassium [Moles/volume] in Serum or PlasmaOrdered By: Lorna Ortega on 04-12-2023 Potassium [Moles/Vol] 5.1 mmol/L Normal 3.5-5.1 [facility] Comment on above: Order Comment: Reaso n for Exam Cirrhosis of liver Performed By: #### C MP #### [facility] [address] [place] [id number] [place] Protein [Mass/volume] in Ser um or PlasmaOrdered By: Lorna Ortega on 04-12-2023 Protein [Mass/Vol] 6.3 g/dL Low 6.4-8.9 [facility] Comment on above: Order Comment: Reaso n for Exam Cirrhosis of liver Performed By: #### C MP #### [facility] [address] Serum globulin measurement b y calculation (mass/volume)Ordered By: Lorna Ortega on 04-12-2023 Globulin (S) [Mass/Vol] 3.3 g/dL Normal [facility] Comment on above: Order Comment: Reaso n for Exam Cirrhosis of liver Performed By: #### C MP #### [facility] [address] Serum or plasma anion gap de terminationOrdered By: Lorna Ortega on 04-12-2023 Anion gap [Moles/Vol] 9.8 mmol/L Normal 6.0-15.0 [facility] Comment on above: Order Comment: Reaso n for Exam Cirrhosis of liver Performed By: #### C MP #### [facility] [address] XR RIBS 2 VIEWS LEFT WITH [...] muscle IgG Qn (S) 8 Units 0-19 [facility] Comment on above: Negative 0 - 19 Weak positive 20 - 30 Moderate to strong positive >30 Actin Antibodies are found in 52-85% of patients with autoimmune hepatitis or chronic active hepatitis and in 22% of patients with primary biliary cirrhosis. Alanine aminotransferase [En zymatic activity/volume] in Serum or PlasmaOrdered By: Lex Carroll on 09-21-2022 ALT [Catalytic activity/Vol] 30 U/L 7-52 [facility] Albumin [Mass/volume] in Ser um or Plasma by Bromocresol green (BCG) dye binding methoOrdered By: Lex Carroll on 09-21-2022 Albumin BCG dye [Mass/Vol] 3.6 g/dL 3.5-5.7 [facility] Alkaline phosphatase [Enzyma tic activity/volume] in Serum or PlasmaOrdered By: Lex Carroll on 09-21-2022 ALP [Catalytic activity/Vol] 96 U/L 34-104 [facility] Aspartate aminotransferase [ Enzymatic activity/volume] in Serum or PlasmaOrdered By: Lex Carroll on 09-21-2022 AST [Catalytic activity/Vol] 55 U/L 13-39 [facility] Basophils Auto (Bld) [#/Vol] Ordered By: Lex Carroll on 09-21-2022 Basophils (Bld) [#/Vol] 0.0 10*3/uL 0.0-0.2 [facility] Basophils/100 WBC Auto (Bld) Ordered By: Lex Carroll on 09-21-2022 Basophils/100 WBC (Bld) 0.9 % . [facility] Bilirubin.total [Mass/volume ] in Serum or PlasmaOrdered By: Lex Carroll on 09-21-2022 Bilirubin [Mass/Vol] 0.9 mg/dL 0.3-1.0 [facility] Calcium [Mass/volume] in Ser um or PlasmaOrdered By: Lex Carroll on 09-21-2022 Calcium [Mass/Vol] 8.7 mg/dL 8.6-10.3 [facility] Carbon dioxide, total [Moles /volume] in Serum or PlasmaOrdered By: Lex Carroll on 09-21-2022 CO2 [Moles/Vol] 26.9 mmol/L 21.0-31.0 [facility] Chloride [Moles/volume] in S mateo or PlasmaOrdered By: Lex Carroll on 09-21-2022 Chloride [Moles/Vol] 108 mmol/L 98-107 [facility] Cholesterol [Mass/volume] in Serum or PlasmaOrdered By: Lex Carroll on 09-21-2022 Cholesterol [Mass/Vol] 175 mg/dL 140-200 [facility] Comment on above: Chol less than 200 m g/dl low riskChol 201-239 mg/dl borderline riskChol 240 mg/dl and greater high risk Cholesterol in LDL Calc [Mas s/Vol]Ordered By: Lex Carroll on 09-21-2022 Cholesterol in LDL [Mass/Vol] 94 mg/dL 0-100 [facility] Comment on above: LDL ATP III CLASSIFI CATIONLDL less than 100 mg/dL OptimalLDL 100-129 mg/dL Near or above optimalLDL 130-159 mg/dL Borderline highLDL 160-189 mg/dL HighLDL greater than 189 mg/dL Very high Cholesterol in VLDL Calc [Ma ss/Vol]Ordered By: Lex Carroll on 09-21-2022 Cholesterol in VLDL [Mass/Vol] 21 mg/dL [facility] Creatinine [Mass/volume] in Serum or PlasmaOrdered By: Lex Carroll on 09-21-2022 Creatinine [Mass/Vol] 0.90 mg/dL 0.70-1.30 [facility] Eosinophils Auto (Bld) [#/Vo l]Ordered By: Lex Carroll on 09-21-2022 Eosinophils (Bld) [#/Vol] 0.2 10*3/uL 0.0-0.45 [facility] Eosinophils/100 WBC Auto (Bl d)Ordered By: Lex Carroll on 09-21-2022 Eosinophils/100 WBC (Bld) 3.6 % . [facility] Erythrocyte distribution wid th Auto (RBC) [Ratio]Ordered By: Lex Carroll on 09-21-2022 Erythrocyte distribution width (RBC) [Ratio] 14.2 % 12.0-14.8 [facility] Globulin Calc (S) [Mass/Vol] Ordered By: Lex Carroll on 09-21-2022 Globulin (S) [Mass/Vol] 2.8 g/dL [facility] Glucose [Mass/volume] in Ser um or PlasmaOrdered By: Lex Carroll on 09-21-2022 Glucose [Mass/Vol] 123 mg/dL 70-100 [facility] Comment on above: ADA recommended refe rence rangeRandom Glucose Reference Range is dependent on time and content of last meal. Glucose of more than 200 mg/dL in a nonstressed, ambulatory subject supports the diagnosis of Diabetes Mellitus. Hematocrit Auto (Bld) [Volum e fraction]Ordered By: Lex Carroll on 09-21-2022 Hematocrit (Bld) [Volume fraction] 37.5 % 38.8-50.0 [facility] Hemoglobin [Mass/volume] in BloodOrdered By: Lex Carroll on 09-21-2022 Hemoglobin (Bld) [Mass/Vol] 12.9 g/dL 13.0-17.0 [facility] Hepatitis B virus surface Ag [Presence] in Serum or Plasma by ImmunoassayOrdered By: Lex Carroll on 09-21-2022 HBV surface Ag IA Ql Negative Negative [facility] Hepatitis C virus IgG Ab [Pr esence] in Serum or Plasma by ImmunoassayOrdered By: Lex Carroll on 09-21-2022 HCV IgG IA Ql Non-Reactive Non Reactive [facility] - CoagulationOrde red By: Lex Carroll on 09-21-2022 PT Coag (PPP) [Time] 13.0 s 9.0-12.9 [facility] Leukocytes [#/volume] correc jamila for nucleated erythrocytes in Blood by Automated counOrdered By: Lex Carroll on 09-21-2022 WBC corrected for nucl RBC Auto (Bld) [#/Vol] 4.2 10*3/uL 4.1-10.5 [facility] Lymphocytes Auto (Bld) [#/Vo l]Ordered By: Lex Carroll on 09-21-2022 Lymphocytes (Bld) [#/Vol] 1.1 10*3/uL 1.00-4.8 [facility] Lymphocytes/100 WBC Auto (Bl d)Ordered By: Lex Carroll on 09-21-2022 Lymphocytes/100 WBC (Bld) 27.1 % . [facility] MCH Auto (RBC) [Entitic mass ]Ordered By: Lex Carroll on 09-21-2022 MCH (RBC) [Entitic mass] 35.0 pg 27.5-35.2 [facility] MCHC Auto (RBC) [Mass/Vol]Or dered By: Lex Carroll on 09-21-2022 MCHC (RBC) [Mass/Vol] 34.4 g/dL 32.5-35.6 [facility] MCV Auto (RBC) [Entitic vol] Ordered By: Lex Carroll on 09-21-2022 MCV (RBC) [Entitic vol] 101.9 fL 83.5-101 [facility] Monocytes Auto (Bld) [#/Vol] Ordered By: Lex Carroll on 09-21-2022 Monocytes (Bld) [#/Vol] 0.5 10*3/uL 0.0-0.8 [facility] Monocytes/100 WBC Auto (Bld) Ordered By: Lex Carroll on 09-21-2022 Monocytes/100 WBC (Bld) 11.3 % . [facility] Neutrophils Auto (Bld) [#/Vo l]Ordered By: Lex Carroll on 09-21-2022 Neutrophils (Bld) [#/Vol] 2.4 10*3/uL 1.8-7.7 [facility] Neutrophils/100 WBC Auto (Bl d)Ordered By: Lex Carroll on 09-21-2022 Neutrophils/100 WBC (Bld) 57.1 % . [facility] No Panel InformationOrdered By: Lex Carroll on 09-21-2022 Estimated GFR (CKD-EPI) > 60.0 mL/Min [facility] Hepatitis B Core Total Antibody Negative Negative [facility] Comment on above: Performed at: - [place] [id number] Director: John Tang PhD, Phone: [phone] Hepatitis C Interpretation See comment . [facility] Comment on above: Not infected with HC V unless early or acute infection issuspected (which may be delayed in an immunocompromisedindividual), or other evidence exists to indicate HCVinfection. Hepatitis C RNA Quantitative N/A [facility] Creatinine Clearance (Chem 88.23 [facility] Nucleated erythrocytes [Pres ence] in Blood by Automated countOrdered By: Lex Carroll on 09-21-2022 Nucleated RBC Auto Ql (Bld) 0.2 /100{WBC} 0-0.5 [facility] Platelet mean volume Auto (B ld) [Entitic vol]Ordered By: Lex Carroll on 09-21-2022 Platelet mean volume (Bld) [Entitic vol] 9.8 fL 6.6-10.1 [facility] Platelet poor plasma interna tional normalized ratio (INR) by coagulation assay (relatOrdered By: Lex Carroll on 09-21-2022 INR Coag (PPP) [Relative time] 1.1 {INR} [facility] Comment on above: INR Therapeutic Rang [...] 09-21-2022 Platelets (Bld) [#/Vol] 91 10*3/uL 150-450 [facility] Potassium [Moles/volume] in Serum or PlasmaOrdered By: Lex Carroll on 09-21-2022 Potassium [Moles/Vol] 5.0 mmol/L 3.5-5.1 [facility] Protein [Mass/volume] in Ser um or PlasmaOrdered By: Lex Carroll on 09-21-2022 Protein [Mass/Vol] 6.4 g/dL 6.4-8.9 [facility] RBC Auto (Bld) [#/Vol]Ordere d By: Lex Carroll on 09-21-2022 RBC (Bld) [#/Vol] 3.68 10*6/uL 3.90-5.60 [facility] Serum rmrik-[id number]-jjorlbmhyjy me asurementOrdered By: Lex Carroll on 09-21-2022 Alpha 1 antitrypsin [Mass/Vol] 205 mg/dL 101-187 [facility] Serum hepatitis B virus surf waldo antibody detectionOrdered By: Lex Carroll on 09-21-2022 HBV surface Ab Ql (S) Non-Reactive . [facility] Comment on above: Non Reactive: Incons istent with immunity, less than 10 mIU/mL Reactive: Consistent with immunity, greater than 9.9 mIU/mL Serum mitochondria M2 IgG an tibody assay (units/volume)Ordered By: Lex Carroll on 09-21-2022 Mitochondria M2 IgG Qn (S) <20.0 Units 0.0-20.0 [facility] Comment on above: Negative 0.0 - 20.0 Equivocal 20.1 - 24.9 Positive >24.9Mitochondrial (M2) Antibodies are found in 90-96% ofpatients with primary biliary cirrhosis.Performed at: [facility] [id number] Director: John Tang PhD, Phone: [phone] Serum or plasma albumin/glob ulin mass ratioOrdered By: Lex Carroll on 09-21-2022 Albumin/Globulin [Mass ratio] 1.3 {ratio} [facility] Serum or plasma alpha 1 anti trypsin phenotyping identification by immunofixationOrdered By: Lex Carroll on 09-21-2022 Alpha 1 antitrypsin phenotyping Immunofixation Nom Mm . [facility] Comment on above: Phenotype Population A-1-AT [...] reference. Ranges used to confirm phenotype.Performed at: [facility] [id number] Director: John Tang PhD, Phone: [phone] at: [address] [id number] Director: George Brown MD, Phone: [phone] Serum or plasma anion gap de terminationOrdered By: Lex Carroll on 09-21-2022 Anion gap [Moles/Vol] 11.1 mmol/L 6.0-15.0 [facility] Serum or plasma ceruloplasmi n measurement (mass/volume)Ordered By: Lex Carroll on 09-21-2022 Ceruloplasmin [Mass/Vol] 22.4 mg/dL 16.0-31.0 [facility] Comment on above: Performed at: [email or web address] [place] [id number] Director: John Tang PhD, Phone: [phone] Serum or plasma free cefurox nhi measurement (mass/volume)Ordered By: Lex Carroll on 09-21-2022 Cefuroxime free [Mass/Vol] Negative Negative [facility] Comment on above: Performed at: [email or web address] [place] [address] [id number] Director: John Tang PhD, Phone: [phone] Serum or plasma high density lipoprotein (HDL) cholesterol measurementOrdered By: Lex Carroll on 09-21-2022 Cholesterol in HDL [Mass/Vol] 60 mg/dL 23-92 [facility] Comment on above: HDL CHOL ATP-III CLA SSIFICATION Cardiovascular RiskHDL > or equal to 60 mg/dL LOWHDL < 40 mg/dL HIGH Serum or plasma total choles terol/high density lipoprotein (HDL) cholesterol mass ratOrdered By: Lex Carroll on 09-21-2022 Cholesterol.total/Chol esterol in HDL [Mass ratio] 2.9 {ratio} <5.0 [facility] Sodium [Moles/volume] in Ser um or PlasmaOrdered By: Lex Carroll on 09-21-2022 Sodium [Moles/Vol] 141 mmol/L 136-145 [facility] Triglyceride [Mass/volume] i n Serum or PlasmaOrdered By: Lex Carroll on 09-21-2022 Triglyceride [Mass/Vol] 107 mg/dL 0-149 [facility] Comment on above: TRIG ATP III CLASSIF ICATIONTRIG less than 150 mg/dL NormalTRIG 150-199 mg/dL Borderline highTRIG 200-500 mg/dL High TRIG greater than 500 mg/dL Very highStandard traceable to the Center for Disease Conrtrol and Prevention (CDC) test method. Urea nitrogen [Mass/volume] in Serum or PlasmaOrdered By: Lex Carroll on 09-21-2022 Urea nitrogen [Mass/Vol] 9 mg/dL 7 [facility] WBC Auto (Bld) [#/Vol]Ordere d By: Lex Carroll on 09-21-2022 WBC (Bld) [#/Vol] 4.2 10*3/uL 4.1-10.5 [facility] PROGRESSon 04-05-2017 PROGRESS HNO ID: [id number] Author: Bebe Cunningham Ma Service: (none) Author Type: (none) Type: Progress Notes Filed: 04/05/2017 7:36 AM Note Text: PCP updated Normal [facility] PROGRESS HNO ID: [id number] thor: Tanisha Clarkice: (none)Author Type: PhysicianType: Progress NotesFiled: 04/05/2017 7:36 AMNote Text:This note was created using Magneticriter.AfshinWill jonathon León Jamia is a 61 year old male.Review of SystemsObjectiveThere were no vitals taken for this visit.Physical ExamAssessment and PlanPlease remove me as PCP if he is moving out of state and plans toestablish elsewhere.Thank you. Normal [facility] CNPTOUTREACHon 04-04-2017 CNPTOUTREA Patient Outreach ([facility]) NATHANIEL BLANDON AM ([id number]) 1955 MDate Time Provider Zzlstodxci29/19/17 TANISHA VAZQUEZ [facility] During your visit today, we recorded the following information about you:Bebe Cunningham Ma 04/05/2017 7:36 AM SignedSee refill request 03/30, pt moving to out of [facility] , do you want to updatePCPAmartin Vazquez MD 04/05/2017 7:36 AM SignedThis note was created using Magneticriter.Marcio Blandon is a 61 year old male.Review of SystemsObjectiveThere were no vitals taken for this visit.Physical ExamAssessment and PlanPlease remove me as PCP if he is moving out of formerly [facility] and plans to [facility].Thank you.Bebe Cunningham Ma 04/05/2017 7:36 AM SignedPCP updatedAllergies As of Date: 04/04/2017 Noted Allergy ReactionBACTRIM (SULFAMETHOXAZOLE-TRIMETH *12/15/2014 2 - RashDate Reviewed: 01/04/2017Reviewed by: Bebe Cunningham Ma - Fully AssessedReason for Visit: PHMA/Care Gap Outreach [6915]Prescriptions as of 04/04/2017 Sig: METOPROLOL SUCCINATE ER [...] polyps [Z86.010]Follow-up and Disposition History RecordedEncounter Number: [id number] Status:Closed by BEBE CUNNINGHAM MA on 04/05/17 [facility] PROGRESSon 04-04-2017 PROGRESS HNO ID: [id number] Author: Bebe Cunningham Ma Service: (none) Author Type: (none) Type: Progress Notes Filed: 04/05/2017 7:36 AM Note Text: See refill request 03/30, pt moving to out of [facility] , do you want to update PCP Normal [facility] OBSOLETEon 03-30-2017 OBSOLETE [facility] NATHANIEL BLANDON AM ([id number]) 1955 MDate Time Provider Zemkrutawj27/14/17 TANISHA VAZQUEZ [facility] During your visit today, we recorded the following information about you:Bebe Cunningham Ma 03/30/2017 4:25 PM SignedPt [facility] Ma 03/31/2017 3:12 PM SignedPt states they are moving to [place] he has apt to see a new [...] Status:Closed by VIRGINIA SAUCEDA CNP on 03/31/17 [place] 02-13-2017 [facility] Nurse Visit ([facility]) NATHANIEL BLANDON AM ([id number]) 1955 MDate Time Provider Dfowiqnpsn13/30/17 5:50 PM NURSE [facility] MEGANC[facility]SIE [facility] During your visit today, we [...] Status:Closed by JUNAID OFFICE MGROTONIEL on 02/13/17 [facility] 02-13-2017 [facility] NATHANIEL BLANDON AM ([id number]) 1955 MDate Time Provider Xakxcfcumy33/30/17 TANISHA VAZQUEZ During your visit today, we recorded the following information about you:Bebe Cunningham Ma 02/13/2017 2:35 PM SignedMessage from [facility]:Original authorizing provider: Ruben Iqbal would like a refill of the following medications:zolpidem (AMBIEN) 10 mg tab [Tanisha Vazquez MD]Preferred pharmacy: [id number] [place] [address] - [id number] - [phone] [facility] [id number]:Bebe Cunningham Ma 02/13/2017 2:38 PM SignedScript pending [...] Status:Closed by TANISHA [facility]ZQUEZ [facility] 02/13/17 [facility] NATHANIEL BLANDON AM ([id number]) 1955 MDate Time Provider Department01/04/17 9:00 AM [facility] During your visit today, we recorded the following information about you: Temperature Pulse Blood pressure Weight 98.2 degrees 59/minute 172/93 98 Karina Vazquez MD 01/04/2017 9:00 AM Sammy Blandon [...] LT- XR FOOT GENERAL 3V AP/LAT/OBL LTBAILEY Iqbalefhari Provider: TANISHA VAZQUEZ [[id number]]Allergies As of Date: 01/04/2017 Noted Allergy ReactionBACTRIM (SULFAMETHOXAZOLE-TRIMETH *12/15/2014 2 - RashDate Reviewed: 01/04/2017Reviewed by: Bebe Cunningham Ma - Fully AssessedReason for Visit: Acute Visit [896] Cmt: swollen toe x 2 weeksReason For Visit History RecordedPrimary Visit Diagnosis:Great toe pain, left [M79.675]Order(s):XR TOE AP/LAT/OBL LT [[id number]] Order #: [id number] FUTURE XR FOOT GENERAL 3V AP/LAT/OBL LT [[id number]] Order #: [id number] FUTUREPrescriptions as of 01/04/2017 Sig: METOPROLOL SUCCINATE [...] meals. Disc: Course of therapy completedEncounter Number: [id number] Status:Closed by TANISHA VAZQUEZ MD on 01/04/17 [facility] 01-04-2017 [facility] Telephone ([facility]) NATHANIEL BLANDON AM ([id number]) 1955 MDate Time Provider Department01/04/17 TANISHA VAZQUZE [facility] During your visit today, we [...] T TO ORTHOPAEDIC SURGERY [[id number]] Order #: [id number]: 1Prescriptions as of 01/04/2017 Sig: METOPROLOL SUCCINATE [...] by TANISHA VAZQUEZ MD on 01/04/17 [facility] 01-04-2017 PROGRESS HNO ID: [id number] thor: Jaclyn Pagan (Tech): (none)Author Type: TechnicianType: Progress NotesFiled: 01/04/2017 9:36 AMNote Text: Radiology Service Progress NotePATIENT NAME: Charles AyalagMRN: [id number] OF SERVICE: January 04, 2017TIME: 9:36 AMPATIENT IDENTITY VERIFICATION COMPLETED USING TWO (2) METHODS: Patientconfirmed name verbally and Date of .PATIENT GENDER DATA: MalePATIENT RELEVANT IMPLANT DATA REVIEWED: Not ApplicableRADIOLOGY DEPARTMENT: General X-ray: Exam(s) Completed: Lower ExtremityX-Ray(s): Foot, Left and Wt. Bearing and Toes, Left:PERIPHERAL IV DATA: Not applicableSIGNED BY: Jaclyn Diaz RRTSept2016 9:36 AM Normal [facility] PROGRESS HNO ID: [id number] thor: Tanisha Eduardoice: (none)Author Type: PhysicianType: Progress NotesFiled: 01/04/2017 9:00 [...] allergiesREVIEW OF SYSTEMS:As noted in HPIPHYSICAL EXAMINATION: [id number]: 172/93BP Site: Left ArmBP Position: SittingBP Cuff [...] GENERAL 3V AP/LAT/OBL LTTanisha Vazquez MD Normal [facility] XR FOOT 3V AP/LAT/OBL LTon 0 [...] phalanx with extension into the 1st IP joint.Recruiting Coordinator: SRINI Transcribe Date/Time: Jan 04 2017 10:28ADictated by : Sedrick ANDREWS examination was interpreted and the report reviewed and electronically signed by: MALORIE NICHOLS MD on Jan 04 2017 2:47PM [id number] Normal [facility] XR TOE 3V AP/LAT/OBL LTon XR [...] phalanx with extension into the 1st IP joint.Recruiting Coordinator: ITS KOOL Transcribe Date/Time: Jan 04 2017 10:28ADictated by : Sedrick ANDREWS examination was interpreted and the report reviewed and electronically signed by: MALORIE NICHOLS MD on Jan 04 2017 2:47PM [id number] Normal [facility] 12-11-2016 [facility] Telephone ([facility]) NATHANIEL BLANDON AM ([id number]) 1955 MDate Time Provider Department12/11/16 COY BLANCHARD [facility] During your visit today, we [...] Status:Closed by COY BLANCHARD MD on 12/12/16 [facility] CNOVon 12-10-2016 CNOV Office Visit ([facility]) NATHANIEL BLANDON AM ([id number]) 1955 [facility] Time Provider Department12/10/16 9:30 AM COY BLANCHARD [facility] During your visit today, we recorded the following information about you: Temperature Pulse Blood pressure Weight 98.5 degrees 88/minute 158/92 95.7 kgMattw Fracisco Blanchard MD, MD 12/10/2016 9:59 AM Sammy Blandon is a [...] ?F) (Oral) Wt 95.7 kg (211 lb) IcZ458% BMI 30.71 kg/m2BMI 30.71 kg/(m2)General: alert and [...] diet- NAPROXEN 250 MG TABLET- URIC ACID BLOODMatthew Fracisco Blanchard MDRancho [facility] 12/10/2016 9:58 AM SignedPhlebotomy was performed [...] 1 URIC ACID BLOOD [SQURIC] Order #: [id number] as of 12/10/2016 Sig: METOPROLOL SUCCINATE ER [...] of colonic polyps [Z86.010]Visit Notes:>> Prema Romano [place] Sat Dec 10, 2016 9:57 AM Status: [...] to improve.Follow-up and Disposition History RecordedEncounter Number: [id number] Status:Closed by COY BLANCHARD MD on 12/10/16 [facility] PROGRESSon 12-10-2016 PROGRESS HNO ID: [id number] thor: Coy Blanchard MDService: (none)Author Type: PhysicianType: Progress NotesFiled: 12/10/2016 9:59 AMNote Text:Charles Blandon is a 61 year old male here complaining of left toe pain.According to the patient, he states [facility] and has had similar symptoms. Last night, [...] URIC ACID BLOODMattjose juan Blanchard MD Normal [facility] Uric Acidon 12-10-2016 Urate 8.2 mg/dL High 4.0-8.1 [facility] Comment on above: Performed By: #### U ANTHONY ####[facility] [address] [place], [place] [phone] CNOVon 11-01-2016 CNOV Office Visit ([facility]) JAMIANATHANIEL Stafford AM ([id number]) 1955 MDate Time Provider Department11/01/16 9:30 AM ROYCE ARAIZA During your visit today, we recorded the following information about you: Pulse Blood pressure 57/minute 165/82Alok MD Teodora 11/01/2016 2:06 PM SignedDERMATOLOGY CONSULT FOR [facility] ANNISTONERVICE DATE: 11/01/2016PRIMARY CARE PHYSICIAN: MORENA Iqbal PROVIDER:Tanisha Vazquez MD[address] [place] [id number] requested for an opinion regarding the evaluation and treatmentof skin cancer. My final impression and recommendations will be communicatedback to the requesting physician by way of the shared medical record or lettervia US mail.SUBJECTIVECHIEF COMPLAINT: BCCHISTORY OF PRESENT ILLNESSBIOPSY INFORMATION:1. Pathology Results: BCC Nodular and Ulcerated of the LEFT TEMPLEReport Number: Inside Pathology [id number] Performed: 08/10/2016Performed By: [facility] ProviderPast Treatment: No Past Treatment Tumor Type: PrimaryPresent For: unknown amount of month(s)Signs ANDamp; Symptoms: Non-healingPAST DERM HISTORY: No History of Skin CancerFAMILY HISTORY: No History of Skin CancerPAST MEDICAL HISTORYDiagnosis Date- Recinos's esophagus- GERD (gastroesophageal reflux disease)- HTN (hypertension)- Hx of colonic polyps- Osteoporosis- Umbilical herniaPAST SURGICAL [id number]: CHOLECYSTECTOMYNo date: COLONOSCOPY Comment: every 3 yearsNo [...] No suspicious lesions.PHOTOS: Photos taken with consent.PLANIMPRESSION: león etiology, prognosis, and diagnosis of the skin [...] Nose, Chin, Lips, Ears, Periauricular Skin and Moravian)Pre-op Size: 0.6 cm - 1 cm, (0.7cm [...] and Past Histories independentlygathered by the clinical ground crewman mission support and the remaining scribed noteaccurately describes my personal service to the patient.SIGNATURE: Royce Araiza MD PATIENT NAME: Charles AyalagDATE: November 01, 2016 : 10:20 AM PAGER/CONTACT #:MOHS MICROGRAPHIC OPERATIVE REPORTSERVICE DATE: 11/01/2016SERVICE TIME: 9:10 AMLOCATION:[facility] [place], [place] [address]DIXWVOHOR PROVIDER:Tanisha Vazquez MD[address] [facility] [address]HWORGITIV START TIME: 0942PROCEDURE END TIME: 1052SURGEON: Dr. Royce AraizaRESIDENT: Dr. Stovall GlaserANTICOAGULANTS:ASA, AleveIMPLANTED DEVICES: NoneANTIBIOTIC PROPHYLAXIS: Not requiredTRANSPLANT PATIENT: [...] Site(s)and Site Marked, Correct Position (if applicable).Time: 09Affirmation of Time Out: YesSign out Discussion: CompletedLESION #1Preoperative Diagnosis: BCC Nodular and Ulcerated of the LEFT TEMPLETumor Type: PrimaryPath Report Available at Bedside: Inside pathology report # [id number] Size: 0.6 cm - 1 cm, (0.7cm [...] surgery on a Primarytumor type from LEFT BUDDHIST (location of tumor).Post-op Defect Size: 1.0 x [...] WITH VERBAL UNDERSTANDING: YesPATIENT DISCHARGED TO SENIOR PACKAGING ENGINEER/NAME: SelfFOLLOW UP: Return for wound care check in 6 [facility] D[facility] yearly or as needed for FSE'sPRNThe documentation for this note was completed by Lis Serrano RN acting asscribe for Royce Araiza MD. November 01, 2016 10:29 AM.I agree with the Chief Complaint, ROS, and Past Histories independentlygathered by the clinical ground crewman mission support and the remaining scribed noteaccurately describes my [...] SurgeryDepartment to speak to a Nurse at [phone].After 5 pm, nights, and weekends, please call [phone] or and ask for the dermatology surgery fellow director of aviation.Referring Provider: TANISHA VAZQUEZ [[id number]]Allergies As of Date: 11/01/2016 Noted Allergy ReactionBACTRIM (SULFAMETHOXAZOLE-TRIMETH *12/15/2014 2 - RashDate Reviewed: 11/01/2016Reviewed by: Royce Araiza - Fully AssessedPrimary Visit Diagnosis:Basal cell carcinoma of left latter day region [C44.319]Prescriptions as of 11/01/2016 Sig: METOPROLOL [...] Department to speak to a Nurse at [phone]. After 5 pm, nights, and weekends, please call [phone] or and ask for the dermatology surgery fellow director of aviation.Disposition: Return in about 6 weeks (around 12/13/2016) for WOUND CHECK.Follow-up and Disposition History RecordedEncounter Number: [id number] Status:Closed by ROYCE ARAIZA MD on 11/01/16 Normal [facility] PROGRESSon 11-01-2016 PROGRESS HNO ID: [id number] thor: Royce Espinozaice: (none)Author Type: PhysicianType: Progress NotesFiled: 11/01/2016 2:06 PMNote Text:DERMATOLOGY CONSULT FOR MOHSSERVICE DATE: 11/01/2016PRIMARY CARE PHYSICIAN: MORENA Iqbal PROVIDER:Tanisha Vazquez MD[address] [place] [address]Consultation requested for an opinion regarding the evaluation andtreatment of skin cancer. My final impression and recommendations will becommunicated back to the requesting physician by way of the shared medicalrecord or letter via US mail.SUBJECTIVECHIEF COMPLAINT: BCCHISTORY OF PRESENT ILLNESSBIOPSY INFORMATION:1. Pathology Results: BCC Nodular and Ulcerated of the LEFT TEMPLEReport Number: Inside Pathology [id number] Performed: 08/10/2016Performed By: [facility] ProviderPast Treatment: No Past Treatment Tumor Type: PrimaryPresent For: unknown amount of month(s)Signs AND Symptoms: Non-healingPAST DERM HISTORY: No History of Skin CancerFAMILY HISTORY: No History of Skin CancerPAST MEDICAL HISTORYDiagnosis Date- Recinos's esophagus- GERD (gastroesophageal reflux disease)- HTN (hypertension)- Hx of colonic polyps- Osteoporosis- Umbilical herniaPAST SURGICAL [id number]: CHOLECYSTECTOMYNo date: COLONOSCOPY Comment: every 3 yearsNo [...] No suspicious lesions.PHOTOS: Photos taken with consent.PLANIMPRESSION: león etiology, prognosis, and diagnosis of the skin [...] Eyebrows, Nose, Chin, Lips, Ears, Periauricular Skinand Moravian)Pre-op Size: 0.6 cm - 1 cm, (0.7cm [...] and Past Histories independentlygathered by the clinical ground crewman mission support and the remaining scribed noteaccurately describes my personal service to the patient.SIGNATURE: Royce Araiza MD PATIENT NAME: Charles AyalagDATE: November 01, 2016 : 10:20 AM PAGER/CONTACT #:MOHS MICROGRAPHIC OPERATIVE REPORTSERVICE DATE: 11/01/2016SERVICE TIME: 9:10 AMLOCATION:[facility] [place], [place] [address]VHICGYJFF PROVIDER:Tanisha Vazquez MD[address] [facility] [address]BZYYGQLJH START TIME: 941PROCEDURE END TIME: URGEON: Dr. [...] Available at Bedside: Inside pathology report # [id number] Size: 0.6 cm - 1 cm, (0.7cm X 0.8cm)Lymphadenopathy: NoneIndication for Mohs: Anatomic Location where lesion is prone to recur,Type of tumor, Age of patient and Ill-defined bordersLocation: Area H: (Mask Areas of the Face - Includes Central Face,Eyelids, Inner/Outer [place], Eyebrows, Nose, Chin, Lips, Ears,Periauricular Skin and Moravian)Preparation: Povidone-iodineLAYER AThe patient was positioned, prepped with [...] surgery on aPrimary tumor type from LEFT BUDDHIST (location of tumor).Post-op Defect Size: 1.0 x [...] WITH VERBAL UNDERSTANDING: YesPATIENT DISCHARGED TO SENIOR PACKAGING ENGINEER/NAME: SelfFOLLOW UP: Return for wound care check in 6 weeksSee Dermatology yearly or as needed for FSE'sPRNThe documentation for this note was completed by Lis Serrano RN acting asscribe for Royce Araiza MD. November 01, 2016 10:29 AM.I agree with the Chief Complaint, ROS, and Past Histories independentlygathered by the clinical ground crewman mission support and the remaining scribed noteaccurately describes my personal service to the patient.SIGNATURE: Royce Araiza MD PATIENT NAME: Charles AyalagDATE: November 01, 2016 : 9:10 AM PAGER/CONTACT #: Sammy [facility] CNNURSEon 10-17-2016 CNNURSE [facility] NATHANIEL BLANDON AM ([id number]) 1955 MDate Time Provider Department10/17/16 7:00 AM NURSE EYAD CAMARA During your visit today, we recorded the following information about you:Constance Elida Marbleizing Machine Tender 10/17/2016 1:46 PM SignedPhlebotomy was performed per the order of Tanisha Vazquez M.D.., accessing leftantecubital vein.Needle removed intact. Dressing secured with tape.Patient denies discomfort, dizziness, light-headedness, or weakness and leftthe office ambulatory..Referring Provider: TANISHA VAZQUEZ [[id number]]Allergies As of Date: 10/17/2016 Noted Allergy ReactionBACTRIM (SULFAMETHOXAZOLE-TRIMETH *12/15/2014 2 - RashDate Reviewed: 08/10/2016Reviewed by: Bebe Cunningham Ma - Fully AssessedVisit Diagnoses:Abnormal LFTs [R79.89] Elevated fasting blood sugar [R73.01]Order(s):COMP METABOLIC PANEL [SQCMP] Order #: [id number] HGB A1C [FYMOU4L] Order #: [id number] as of 10/17/2016 Sig: METOPROLOL SUCCINATE ER [...] of colonic polyps [Z86.010]Visit Notes:>> Constance Mancuso Marbleizing Machine Tender MonOct 17, 2016 1:42 PM Status: SignedPhlebotomy was performed per the order of Tanisha Vazquez M.D.., accessingleft antecubital vein.Needle removed intact. Dressing secured with tape.Patient denies discomfort, dizziness, light-headedness, or weakness andleft the office ambulatory.. Status:Closed by ELIDA TICKET BROKERCONSTANCE on 10/17/16 Normal [facility] Comp Metabolic Panelon 10-17 Alanine aminotransferase (ALT) 38 U/L Normal 10-54 [facility] Comment on above: Performed By: #### C MP, HBA1C ####[place] [phone] Albumin 4.1 g/dL Normal 3.9-4.9 [facility] Comment on above: Performed By: #### C MP, HBA1C ####[place] [address] [address] [place] [phone] Alkaline phosphatase (ALP) 54 U/L Normal 36-108 [facility] Comment on above: Performed By: #### C MP, HBA1C ####[place] [address] [address] [place] [phone] Anion gap 20 mmol/L High 9-18 [facility] Comment on above: Performed By: #### C MP, HBA1C ####[place] [address] [address] [place] [phone] Aspartate aminotransferase (AST) 43 U/L High 14-40 [facility] Comment on above: Performed By: #### C MP, HBA1C ####[place] [address] [address] [place], [place] [phone] Bilirubin (total) 0.3 mg/dL Normal 0.2-1.3 [facility] Comment on above: Performed By: #### C MP, HBA1C ####[place] [address] [address] [place] [phone] Calcium 9.5 mg/dL Normal 8.5-10.2 [facility] Comment on above: Performed By: #### C MP, HBA1C ####[place] [address] [place] [phone] Chloride 101 mmol/L Normal 97-105 [facility] Comment on above: Performed By: #### C MP, HBA1C ####[place] [phone] CO2 23 mmol/L Normal 22-30 [facility] Comment on above: Performed By: #### C MP, HBA1C ####[place] [phone] Creatinine 1.02 mg/dL Normal 0.73-1.22 [facility] Comment on above: Performed By: #### C MP, HBA1C ####[place] [phone] eGFR (non-black) mL/min/{1.73_m2} Normal [facility] Comment on above: Performed By: #### C MP, HBA1C ####[address] [phone] Result Comment: eGFR (Estimated GFR) Units of [...] Glucose mass conc 90 mg/dL Normal 74-99 [facility] Comment on above: Result Comment: The [place]vorian [...] 1). Performed By: #### C MP, HBA1C ####[place] [address] [address] [place] [phone] Potassium molar conc 4.6 mmol/L Normal 3.7-5.1 [facility] Comment on above: Performed By: #### C MP, HBA1C ####[place] [address] [address] [place], [place] [phone] Protein 7.1 g/dL Normal 6.3-8.0 [facility] Comment on above: Performed By: #### C MP, HBA1C ####[place] [address] [address] [place] [place] [phone] Sodium 144 mmol/L Normal 136-144 [facility] Comment on above: Performed By: #### C MP, HBA1C ####[address] [place], [place] [phone] Urea nitrogen 18 mg/dL Normal 9-24 [facility] Comment on above: Performed By: #### C MP, HBA1C ####[place] [address] [address] [place], [place] [phone] Hemoglobin A1con 10-17-2016 Glucose mass conc 120 mg/dL Normal [facility] Comment on above: Result Comment: eAG: (Estimated average glucose) is a calculated value from HgbA1c and is volunteer patient representative of the average blood glucose level in the last 2-3 month period. Performed By: #### C MP, HBA1C ####[place] [address] [address] [place], [place] [phone] Hemoglobin A1c/Hemoglobin.total mass fraction (Bld) 5.8 % High 4.3-5.6 [facility] Comment on above: Result Comment: Amer ican Diabetes Association guidelines indicate that patients with HgbA1c in the range 5.7-6.4% are at increased risk for development of diabetes, and intervention by lifestyle modification may be beneficial. HgbA1c greater or equal to 6.5% is considered diagnostic of diabetes. Performed By: #### C MP, HBA1C ####[facility] [address] [place], [place] [phone] Vital Signs Date Time Vital Sign Value Performing Clinician Facility 07-05-2023 08:58-0400 Body weight 94.85 kg II Rusty Delgado Work Phone: [facility] 07-05-2023 08:58-0400 Diastolic blood pressure 71 mm[Hg] II Rusty Delgado Work Phone: [facility] 07-05-2023 08:58-0400 Heart rate 88 /min II Rusty Delgado Work Phone: [facility] 07-05-2023 08:58-0400 Systolic blood pressure 121 mm[Hg] II Rusty Delgado Work Phone: [facility] 06-13-2023 17:15-0500 Diastolic blood pressure 62 mm[Hg] II Rusty Delgado Work Phone: [facility] 06-13-2023 17:15-0500 Heart rate 72 /min II Rusty Delgado Work Phone: [facility] 06-13-2023 17:15-0500 Respiratory rate 20 /min II Rusty Delgado Work Phone: [facility] 06-13-2023 17:15-0500 SaO2% (BldA) [Mass fraction] 94 % II Rusty Delgado Work Phone: [facility] 06-13-2023 17:15-0500 Systolic blood pressure 101 mm[Hg] II Rustyra Delgado Work Phone: [facility] 06-13-2023 13:38-0500 Body height 175.26 cm II Rusty Delgado Work Phone: [facility] 06-13-2023 13:38-0500 Body mass index (BMI) [Ratio] 31.1 kg/m2 II Rusty Delgado Work Phone: [facility] 06-13-2023 13:38-0500 Body weight 95.7 kg II Rusty Delgado Work Phone: [facility] 06-13-2023 12:05-0500 Body temperature 98.2 [degF] II Rusty Delgado Work Phone: [facility] 05-31-2023 15:07-0500 Body height 175.3 cm Janneth Itzkowitz DO Work Phone: [facility] 05-31-2023 15:07-0500 Body mass index (BMI) [Ratio] 32.05 kg/m2 Janneth Itzkowitz DO Work Phone: [facility] 05-31-2023 15:07-0500 Body weight 98.43 kg Janneth Itzkowitz DO Work Phone: [facility] 05-31-2023 15:07-0500 Diastolic blood pressure 72 mm[Hg] Janneth Itzkowitz DO Work Phone: [facility] 05-31-2023 15:07-0500 Systolic blood pressure 120 mm[Hg] Janneth Itzkowitz DO Work Phone: [facility] 05-23-2023 06:44-0500 Body height 175.26 cm II Rusty Delgado Work Phone: [facility] 05-23-2023 06:44-0500 Body weight 99.79 kg II Rusty Delgado Work Phone: [facility] 05-18-2023 14:04-0500 Body height 175.3 cm Janneth Itzkowitz DO Work Phone: [facility] 05-18-2023 14:04-0500 Body mass index (BMI) [Ratio] 32.78 kg/m2 Janneth Itzkowitz DO Work Phone: [facility] 05-18-2023 14:04-0500 Body weight 100.7 kg Janneth Itzkowitz DO Work Phone: [facility] 05-18-2023 14:04-0500 Diastolic blood pressure 74 mm[Hg] Janneth Itzkowitz DO Work Phone: [facility] 05-18-2023 14:04-0500 Systolic blood pressure 120 mm[Hg] Janneth Itzkowitz DO Work Phone: [facility] 04-12-2023 11:00-0500 Body height 175.26 cm Lorna Ortega Other [facility] 04-12-2023 11:00-0500 Body mass index (BMI) [Ratio] 33.22 kg/m2 Lorna Scnaya Other [facility] [email or web address] Other 04-12-2023 11:00-0500 Body weight 102.06 kg Lorna Scovanner Other [facility] [email or web address] Other 04-12-2023 11:00-0500 Body weight 102.05 kg JUDITH Rusty Delgado Work Phone: [facility] 04-12-2023 11:00-0500 Diastolic blood pressure 67 mm[Hg] Lorna Scovanner Other [facility] 04-12-2023 11:00-0500 Systolic blood pressure 135 mm[Hg] Lorna Scovanner Other [facility] 11-10-2022 11:00-0400 Body weight 99.79 kg Lorna Scovanner Other [facility] [email or web address] Other 11-10-2022 11:00-0400 Diastolic blood pressure 74 mm[Hg] Lorna Ortega Other [facility] [email or web address] Other 11-10-2022 11:00-0400 Systolic blood pressure 127 mm[Hg] Lorna Ortega Other [facility] [email or web address] Other 09-21-2022 08:49-0400 Diastolic blood pressure 78 mm[Hg] II Rusty Delgado Work Phone: [facility] 09-21-2022 08:49-0400 Heart rate 50 /min II Rusty Delgado Work Phone: [facility] 09-21-2022 08:49-0400 SaO2% (BldA) [Mass fraction] 99 % II Rusty Delgado Work Phone: [facility] 09-21-2022 08:49-0400 Systolic blood pressure 125 mm[Hg] II Rusty Delgado Work Phone: [facility] 09-21-2022 07:36-0400 Body height 175.26 cm II Rusty Delgado Work Phone: [facility] [facility] 09-21-2022 07:36-0400 Body temperature 98.5 [degF] II Rusty Delgado Work Phone: [facility] 09-21-2022 07:36-0400 Body weight 95.25 kg II Rusty Delgado Work Phone: [facility] 09-21-2022 07:36-0400 Respiratory rate 16 /min II Rusty Delgado Work Phone: [facility] Encounters Encounter Date Encounter Type Care Provider Facility Start: 12-27-2023 ambulatory [facility] Start: 12-27-2023 End: 12-27-2023 ambulatory [facility] Start: 12-13-2023 End: 12-13-2023 ambulatory FABY ECHEVARRIA Not Available Start: 12-12-2023 End: 12-12-2023 ambulatory II Rusty Delgado Work Phone: [facility] Work Phone: Start: 12-12-2023 End: 12-12-2023 Departed Referred II Rusty Delgado Work Phone: [facility] Start: 12-08-2023 End: 12-08-2023 ambulatory II Rusty Delgado Work Phone: [facility] Work Phone: Start: 12-08-2023 End: 12-08-2023 Departed Referred II Rusty Delgado Work Phone: [facility] Start: 12-07-2023 End: 12-07-2023 ambulatory II Rusty Delgado Work Phone: [facility] Work Phone: Start: 12-07-2023 End: 12-07-2023 Departed Referred II Rusty Delgado Work Phone: [facility] Start: 11-27-2023 End: 11-27-2023 ambulatory [facility] Start: 11-15-2023 End: 11-15-2023 ambulatory RUSTY DELGADO Not Available Start: 11-14-2023 End: 11-14-2023 ambulatory [facility] Start: 11-08-2023 End: 11-08-2023 ambulatory ROSALINO LAMAS Not Available Start: 10-13-2023 ambulatory [facility] Start: 10-13-2023 End: 10-13-2023 ambulatory [facility] Start: 10-09-2023 End: 10-09-2023 ambulatory JANNETH VILLEGAS Not Available Start: 10-03-2023 End: 10-03-2023 ambulatory II Rusty Delgado Work Phone: [facility] Work Phone: Start: 10-03-2023 End: 10-03-2023 Departed Referred II Rusty Danny Work Phone: [facility] Start: 10-02-2023 End: 10-02-2023 ambulatory LYNDSEY PATEL Not Available Start: 09-25-2023 End: 09-25-2023 ambulatory [facility] Start: 09-15-2023 End: 09-15-2023 ambulatory WARD BENEDICT Not Available Start: 09-05-2023 End: 09-05-2023 ambulatory WARD BENEDICT Not Available Start: 08-30-2023 End: 08-30-2023 ambulatory WARD BENEDICT Not Available Start: 08-22-2023 End: 08-22-2023 ambulatory [facility] Start: 08-07-2023 End: 08-07-2023 ambulatory [facility] Start: 07-18-2023 End: 07-18-2023 ambulatory FABYIVAN ECHEVARRIA Not Available Start: 07-12-2023 End: 07-13-2023 ambulatory Janneth H Itzkowitz Facility:[facility] Start: 07-12-2023 End: 07-12-2023 Patient encounter procedure Jourdan ARRIAZA [facility] Start: 07-05-2023 End: 07-05-2023 ambulatory II Rusty Danny Work Phone: [facility] Work Phone: Start: 07-05-2023 End: 07-05-2023 Patient encounter procedure II Rusty Danny Work Phone: [facility] Work Phone: Start: 06-29-2023 End: 06-29-2023 ambulatory JANNETH H ITZKOWITZ Not Available Start: 06-23-2023 ambulatory Janneth Itzkowitz Facil ity:[facility] Start: 06-22-2023 End: 06-22-2023 ambulatory JANNETH H ITZKOWITZ Not Available Start: 06-13-2023 End: 06-13-2023 Admission to same day surgery center II Rusty Delgado Work Phone: [facility] [place] Start: 06-13-2023 End: 06-13-2023 ambulatory Rusty Delgado Facility:[facility] Start: 06-02-2023 End: 06-02-2023 Patient encounter procedure II Rusty Delgado Work Phone: [facility] Work Phone: Start: 06-02-2023 End: 06-02-2023 ambulatory II Rusty Delgado Work Phone: [facility] Work Phone: Start: 05-31-2023 End: 05-31-2023 Office outpatient visit 25 minutes Janneth H Itzkowitz DO Work Phone: [facility] Comment on above: Fissure in ano (Prim chinmay Dx) Start: 05-31-2023 End: 05-31-2023 ambulatory JANNETH H ITZKOWITZ Not Available Start: 05-23-2023 End: 05-23-2023 Admission to same day surgery center II Rusty Delgado Work Phone: [facility] Work Phone: Start: 05-23-2023 End: 05-23-2023 ambulatory Rusty Delgado Facility:[facility] Start: 05-18-2023 End: 05-18-2023 Office outpatient new 45 minutes Janneth H Itzkowitz DO Work Phone: [facility] Comment on above: Fissure in ano Start: 05-18-2023 End: 05-18-2023 ambulatory JANNETH H ITZKOWITZ Not Available Start: 05-11-2023 End: 05-11-2023 ambulatory Lorna Ortega Other [facility] Other Start: 05-11-2023 Office outpatient visit 15 minutes Lorna Ortega [facility] Start: 04-28-2023 End: 04-28-2023 ambulatory Lorna Ortega Other [facility] Other Start: 04-28-2023 Telephone encounter Lorna Ortega [facility] Start: 04-27-2023 End: 04-27-2023 ambulatory Lorna Ortega Other [facility] Other Start: 04-27-2023 Telephone encounter Lorna Coates [facility] Start: 04-26-2023 End: 04-26-2023 Patient encounter procedure II Rusty Delgado Work Phone: [facility] Work Phone: Start: 04-26-2023 End: 04-26-2023 ambulatory Rusty Danny Facility:[facility] Start: 04-13-2023 End: 04-13-2023 ambulatory Lorna Ortega Other [facility] Other Start: 04-13-2023 Telephone encounter Lorna Coates [facility] Start: 04-12-2023 Office outpatient visit 25 minutes Lorna Ortega [facility] Start: 04-12-2023 Telephone encounter Lorna Coates [facility] Start: 04-12-2023 End: 04-12-2023 Patient encounter procedure II Rusty Delgado Work Phone: [facility] [place] Work Phone: Start: 04-12-2023 End: 04-12-2023 ambulatory II Rusty Delgado Work Phone: [facility] Other Start: 04-12-2023 End: 04-12-2023 Patient encounter procedure II Rusty Delgado Work Phone: [facility] Work Phone: Start: 04-03-2023 End: 04-03-2023 ambulatory Lorna Ortega Other [facility] Other Start: 04-03-2023 Telephone encounter Lorna Coates [facility] Start: 03-30-2023 End: 03-30-2023 ambulatory RUSTY DELGADO Not Available Start: 03-24-2023 End: 03-24-2023 ambulatory RUSTY DELGADO Not Available Start: 03-24-2023 End: 03-24-2023 ambulatory RUSTY DELGADO Not Available Start: 11-18-2022 End: 11-18-2022 ambulatory Lorna Ortega Other [facility] Other Start: 11-18-2022 Telephone encounter Lorna Coates [facility] Start: 11-15-2022 End: 11-15-2022 ambulatory II Rusty Delgado Work Phone: [facility] Work Phone: Start: 11-15-2022 End: 11-15-2022 Patient encounter procedure II Rusty Delgado Work Phone: [facility] [place] Work Phone: Start: 11-10-2022 End: 11-10-2022 ambulatory Lorna Ortega Other [facility] Other Start: 11-10-2022 Office outpatient visit 15 minutes Lorna Ortega [facility] Start: 11-03-2022 End: 11-03-2022 Patient encounter procedure II Rusty Delgado Work Phone: [facility] Work Phone: Start: 10-26-2022 End: 10-26-2022 ambulatory II Rusty Delgado Work Phone: [facility] Work Phone: Start: 10-26-2022 End: 10-26-2022 Departed Referred II Rusty Delgado Work Phone: [facility] Work Phone: Start: 10-26-2022 End: 10-26-2022 Patient encounter procedure II Rusty Delgado Work Phone: [facility] Work Phone: Start: 09-21-2022 End: 09-21-2022 Admission to same day surgery center II Rusty Delgado Work Phone: [facility] Work Phone: Start: 09-21-2022 End: 09-21-2022 ambulatory II Rusty Delgado Work Phone: [facility] Work Phone: Start: 02-13-2017 End: 02-13-2017 Ambulatory [facility] Start: 01-04-2017 End: 01-04-2017 Ambulatory [facility]ANISHA [facility] Start: 12-10-2016 End: 12-10-2016 Ambulatory COY BLANCHARD [facility] Start: 11-01-2016 End: 11-02-2016 Ambulatory ROYCE ARAIZA [facility] Start: 10-17-2016 End: 10-17-2016 Ambulatory TANISHA [facility] Procedures Date Procedure Procedure Detail Performing [...] 05-12-2032 Screening for malignant neoplasm of colon [facility] Start: 05-26-2024 Urine screening for protein Diabetes: Urine Protein Screening [facility] Start: 05-24-2024 Glaucoma screening Diabetes: Retinopathy Screening [facility] Start: 08-24-2023 Hemoglobin A1c measurement Diabetes: Hemoglobin A1C [facility] Start: 06-13-2023 [facility] Start: 06-13-2023 [facility] Start: 06-13-2023 End: 06-13-2023 Patient encounter procedure 06/13/2023 1:30 PM EST Procedure Visit [facility] Janneth Villegas, DO [address] [address] [facility] Start: 06-09-2023 End: 06-09-2023 Patient encounter procedure 06/09/2023 10:30 AM EST Office [facility] [address] [address] Janneth Villegas, DO [address] [facility] Start: 05-26-2023 Medicare Annual Wellness (AWV) Medicare Annual Wellness (AWV) [facility] Start: 05-23-2023 [facility] Start: 02-23-2023 Hemoglobin A1c measurement Diabetes: Hemoglobin A1C [facility] Start: 11-03-2022 [facility] Start: 11-03-2022 Ultrasound elastography of liver [facility] Fibroscan (Not Applicable) [facility] Start: 10-26-2022 Ultrasound elastography of liver [facility] Fibroscan (Not Applicable) [facility] Start: 10-26-2022 [facility] Start: 09-21-2022 Hepatitis B core antibody measurement [facility] Start: 09-21-2022 End: 09-21-2022 [facility] Start: 1972 Urine screening for protein Diabetes: Urine Protein Screening [facility] Start: 08-03-1959 Pneumococcal Vaccine: 65+ Years (1 - PCV) Pneumococcal Vaccine: 65+ Years (1 - PCV) [facility] Start: 1953 Medicare Annual Wellness (AWV) Medicare Annual Wellness (AWV) [facility] Start: 1955 Screening for malignant neoplasm of colon [facility] Actin smooth muscle IgG Ab [Units/volume] in Serum [facility] Alpha 1 antitrypsin [Mass/volume] in Serum or Plasma [facility] Alpha 1 antitrypsin phenotyping [Identifier] in Serum or Plasma by Immunofixation [facility] Cefuroxime free [Mass/volume] in Serum or Plasma [facility] Ceruloplasmin [Mass/volume] in Serum or Plasma [facility] Hepatitis B virus galindo rface Ab [Presence] in Serum [facility] Hepatitis B virus galindo rface Ag [Presence] in Serum or Plasma by Immunoassay [facility] Hepatitis C virus Ig G Ab [Presence] in Serum or Plasma by Immunoassay [facility] Mitochondria M2 IgG Ab [Units/volume] in Serum [facility] Patient referral [facility] Work Phone: Immunizations Immunization Date Immunization Notes Care Provider [facility] 01-24-2023 influenza virus vaccine, unspecified formulation Jourdan ARRIAZA [facility] 04-30-2022 zoster vaccine recombinant Janneth Itzkowitz DO Work Phone: [facility] 03-22-2022 tetanus toxoid, reduced diphtheria toxoid, and acellular pertussis vaccine, adsorbed Janneth Itzkowitz DO Work Phone: [facility] 02-01-2022 influenza virus vaccine, unspecified formulation Jourdna ARRIAZA [facility] 02-01-2022 influenza, high dose seasonal, preservative-free Janneth Itzkowitz DO Work Phone: [facility] 02-17-2021 influenza virus vaccine, unspecified formulation Jourdan ARRIAZA [facility] 02-17-2021 influenza, high dose seasonal, preservative-free Janneth Itzkowitz DO Work Phone: [facility] 02-13-2017 influenza virus vaccine, unspecified formulation Jourdan ARRIAZA [facility] 02-13-2017 influenza, injectabl e, quadrivalent, contains preservative Janneth Itzkowitz DO Work Phone: [facility] 02-01-2016 influenza virus vaccine, unspecified formulation Jourdan ARRIAZA [facility] 02-01-2016 influenza, seasonal, injectable Janneth Itzkowitz DO Work Phone: [facility] 03-24-2015 zoster vaccine, live Janneth Itzkowitz DO Work Phone: [facility] 02-10-2015 influenza virus vaccine, unspecified formulation Jourdan ARRIAZA [facility] 02-10-2015 influenza, seasonal, injectable Janneth Itzkowitz DO Work Phone: [facility] 01-14-2014 influenza virus vaccine, unspecified formulation Jourdan ARRIAZA [facility] 01-14-2014 influenza, seasonal, injectable Janneth Itzkowitz DO Work Phone: [facility] 01-23-2013 influenza virus vaccine, unspecified formulation Janneth Itzkowitz DO Work Phone: [facility] Payers Date Payer Category Payer Self-pay 2022 Medicare [employer] MEDICARE A DVANTAGE A[employer]NA MEDICARE REPLACEMENT [id number] 2022-Present [address] [place] [address] [id number] 2002 Private Health Insurance [id number] 1953 Unknown [id number] 2.16.840.1.762556.3.579.2. 727 1953 Unknown [id number] 2.16.840.1.885543.3.579.2. 125 1953 Unknown [id number] 2.16.840.1.362218.3.579.2. 125 1953 Unknown [id number] 2.16.840.1.822072.3.579.2. 1258 1953 Unknown [id number] 2.16.840.1.669145.3.579.2. 1258 1953 Unknown [id number] 2.16.840.1.604506.3.579.2. 125 1953 Unknown [id number] 2.16.840.1.436136.3.579.2. 1258 1953 Unknown [id number] 2.16.840.1.568729.3.579.2. 125 1953 Unknown [id number] 2.16.840.1.188499.3.579.2. 125 1953 Unknown [id number] 2.16.840.1.372289.3.579.2. 125 1953 Unknown [id number] 2.16.840.1.387911.3.579.2. 125 1953 Unknown [id number] 2.16.840.1.260100.3.579.2. 125 1953 Unknown [id number] 2.16.840.1.955967.3.579.2. 125 1953 Unknown [id number] 2.16.840.1.130257.3.579.2. 1259 1953 Unknown [id number] 2.16.840.1.403724.3.579.2. 1259 1953 Unknown [id number] 2.16.840.1.854351.3.579.2. 1259 1953 Unknown [id number] 2.16.840.1.401806.3.579.2. 1259 Unknown [id number] 2.16.840.1.418556.3.579.2. 531 Unknown [id number] 2.16.840.1.636557.3.579.2. 531 Unknown [id number] 2.16.840.1.443404.3.579.2. 531 Unknown [id number] 2.16.840.1.186085.3.579.2. 531 Unknown [id number] 2.16.840.1.350188.3.579.2. 531 Unknown [id number] 2.16.840.1.301625.3.579.2. 531 Unknown [id number] 2.16.840.1.837759.3.579.2. 531 Unknown [id number] 2.16.840.1.302457.3.579.2. 531 Social History Date Type Detail Facility Start: 09-21-2022 End: 06-13-2023 Tobacco smoking status IAIS Ex-smoker (finding) [facility] Start: 1955 Sex Assigned At Male [facility] Start: 05-18-2023 End: 05-31-2023 Sex Assigned At [facility] End: 04-17-1989 History of tobacco use [...] Smokin g Status Entered [facility] Goals Date Patient Goal Desired Activity /State Clinical Notes 09-21-2022 to 12-29-2023 Janneth Rouse Bakari, DO - 05/31/2023 3:15 PM ESTJanneth Rouse Bakari, DO - 05/18/2023 2:00 PM EST Note Date & Type Note Facility 12-29-2023 Note Attestation signed by Irena Johnson MD at 01/01/2024 8:49 AM I discussed the findings and therapeutic plan with the fellow. I agree with the documentation, except for any edits/updates below. I called and spoke with the patient and his , Fabiana. I confirmed with them that they should use Lasix 60 mg once daily as previously instructed, and they acknowledged this. [facility] 12-27-2023 Note Attestation signed by Irena Johnson MD at 12/27/2023 1:16 PM I personally saw and examined the patient on the same date of service as fellow. I discussed the findings and therapeutic plan with the fellow. I agree with the documentation, except for any edits/updates below. 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 AFP wnl Patient will need a repeat paracentesis. His diuretics were changed during his recent hospitalization at [place], therefore, will repeat labs Will change to Aldactone 150 mg every day and lasix 60 mg every day and repeat labs in 3-5 days of new dosing. Advised to monitor BP Will resume his coreg (recently discontinued when he was [facility]). His HR is 90 bpm and BP stable. I discussed the importance of lowering portal pressures, especially since they do not want EVL for primary prophylaxis Recommend EGD for variceal surveillance Counseled on limiting dietary sodium to less an 2 grams per day Counseled on protein intake Counseled on importance of maintaining abstinence from alcohol (last drink October 11) Will order stool studies due to diarrhea will also order abdominal film to assess for stool burden as this may be overflow Continue Rifaximin in the meantime Updated MELD 3.0 labs every 3 months RTC in 4-6 weeks I spent [60] minutes of total time on the day [...] documentation in this note for specific details. [facility] Gastroenterology Follow-up visit CHIEF COMPLAINT Chief Complaint Patient presents with Follow-up Cirrhosis Ascites HISTORY OF PRESENT ILLNESS: Charles [...] reported taking intermittent use if NSAID ( advil), denies melena. Patient reported noticing hematochezia with [...] of dyspepsia, GERD,Cirrhosis, underwent GES was unremarkable. Patient underwent serologic workup for causes of [...] 100 mg and Lasix 40 mg daily. He currently consumes daily alcoholic beverages with approximately one shot per day but previously consumed 5-6 drinks daily for 35 years. Interval update 12/27/23 Of note, patient had recent EGD 11/27/[address] Johnson that showed large esophageal varices, he was placed on low dose Coreg. MRI Abdomen was recently completed in October 2023, which was non-diagnostic for a suspicious liver lesion noted on CT Abdomen previously, due to ascites and pleural effusion. His last AFP 12/25/23 was 2.3. Patient is seen in office today with his , who assists with history. She reports that the patient was recently hospitalized at [facility] for worsening ascites and shortness of breath. She reports that patient has fluid removed via thoracentesis and paracentesis. He has not undergone paracentesis since his hospital stay. She reports that d (more content not included)... [facility] 11-27-2023 Note Patient: Charles hernandez Procedure Summary Date: 11/27/23 Room / Location: [facility] Anesthesia Start: 104 Anesthesia Stop: 110 Procedure: EGD Diagnosis: Alcoholic [...] per anesthesia protocol. No notable events documented. [facility] 11-27-2023 Note Patient: Charles hernandez Procedure Summary Date: 11/27/23 Room / Location: [facility] Anesthesia Start: 1040 Anesthesia Stop: Procedure: EGD Diagnosis: Alcoholic cirrhosis of liver with ascites (CMS/HCC) Scheduled Providers: Irena Johnson MD; Jl Kent MD; VALDEMAR Heath Responsible Provider: Jl Kent MD Anesthesia Type: MAC ASA Status: 3 Anesthesia Post [facility] Patient Monitor: direct observation Transport: uneventful Patient condition is: stable [facility] 11-27-2023 Note Patient: Charles hernandez Procedure Information Date/Time: 11/27/23 1130 Scheduled providers: Irena Johnson MD; Jl Kent MD; VALDEMAR Heath Procedure: EGD Location: [facility] Relevant Problems Cardio Denies chest pain/SOB [...] Plan discussed with CAA. Additional Equipment Requests [facility] 11-08-2023 Note Refills provided [facility] 10-16-2023 Note Emma MALDONADO approved through 04/10/2024, previous approval. Pt has not been on lactulose, prescribed lactulose on the same day as Xifaxan. Based on discussion with annual income for 2 people in the household is $52,000. Should qualify for PAP. Will email provider and pt portions. Carmella Olivo, BrijeshD, BCACP 10/16/23 1:56 PM [facility] [phone] [facility] 10-16-2023 Note Patient assistance a pplication approved through [facility]. Approval darren through 04/16/2024. Patient Case ID/Approval Number: [id number]. Notified patient and will follow up to confirm shipment/delivery is scheduled. Yamini Camarillo, [facility] 10/23/23 10:11 AM [facility] 10-16-2023 Note Have received pt. Po rtion of PAP form still waiting on prescribers portion. Re faxed the forms over to GI. Send PAP forms in once prescribers portion is signed. Darnell Razo [facility] 10/20/23 1:20 PM [facility] 10-16-2023 Note Patient said the [facility] has been scheduled and is on its way. Aware they have to call [facility] every time they need a refill. Have no further questions. Will no longer follow up. Darnell Razo [facility] 10/25/23 10:27 AM [facility] 10-13-2023 Note I called and discuss ed the results of his labwork with the patient. With his sodium level being slightly below baseline, we will have him repeat his labs prior to EGD tomorrow. He expressed clear understanding. If he continues to have low sodium, we may need to consider holding diuretics. [facility] 10-13-2023 Note Attestation signed by Irena [...] documentation in this note for specific details. [facility] Gastroenterology Follow-up visit CHIEF COMPLAINT [...] function of stomach (more content not included)... [facility] 09-14-[address] ordered to rule o ut chronic mesenteric ischemia [facility] 08-07-2023 Note Attestation signed by Arias Jesus MD at 08/07/2023 2:45 PM I personally saw the patient with the fellow, I performed/participated in the critical/david portions of the service, I was directly involved in the management and treatment plan of the patient. I discussed the case management with the fellow and agree with the findings and plan as documented by the fellow. [facility] Gastroenterology New Patient Visit - [...] % gel, Apply topically., Disp: , Rfl: hqmpttmfr-kounur-knigwn-petrol 5-0.25-14.4-15 % cream, APPLY TO AFFECTED AREA [...] Rfl: zolpidem (A (more content not included)... [facility] 05-31-2023 History of Present illness Narrative [...] reflux disease) History of colon polyps Hypertension ([facility]/HCC) Social History Tobacco Use Smoking status: [...] has been scheduled. documented in this encounter [facility] 05-18-2023 History of Present illness Narrative Images from the original note were not included. Charles Blandon 1955 Charles Blandon is a 67 y.o. male presents with chief complaint of painful hemorrhoid HPI: HPI Huber states he has a hemorrhoid for the last 5-6 weeks. He was seen by Dr. Carroll's [employer] who referred him to our office. Huber [...] weeks for recheck documented in this encounter [facility] 05-11-2023 Evaluation note Encounter Date Diagnosis Assessment Notes Apr, Nausea (ICD-10 - R11.0) Apr, Cirrhosis of liver (ICD-10 - K74.60) Apr, Early satiety (ICD-10 - R68.81) [facility] 12-28-2023 Evaluation note* Encounter Date Diagnosis Assessment Notes Treatment Notes Treatment Clinical Notes Mar, Lower abdominal pain (ICD-10 - R10.30) [facility] 12-27-2023 Evaluation note* Encounter Date Diagnosis [...] - R68.81) Mar, Bloating (ICD-10 - R14.0) [facility] 07-27-2023 Evaluation note* Encounter Date Diagnosis [...] a time. Pt advised to start probiotic (susan [employer]) Pt RTO 3 MONTHS [facility] 06-07-20[facility] No data available for this section [facility] [facility] Evaluation noteNo assessment information available [facility] Work Phone: Evaluation noteNo InformationNortThe [facility] [email or web address] / [employer] Other Evaluation note* Diagnosis Fissure in ano Anal fissure documented in this encounter [facility]* Diagnosis Fissure in ano- Primary Anal fissure documented in this encounter [facility]* Diagnosis Onset Date Resolution Status Cirrhosis acute Dyspepsia and disorder of function of stomach acute Emesis acute Esophageal dysmotility acute [facility] Work Phone: History and physical note Author Lex Carroll [facility] September 21, 2022 8:04am Note Date/Time September 21, 2022 8:04a m [facility] [address] [place] [address] Gastroenterology H&P Signed Patient: Charles lBandon MR#: [id number] : 1955 Acct:[id number] Age/Sex: 67 / M Adm Date: 3 Loc: Room: Type: [facility] Attending Dr: Lex Carroll MD Copies to: [...] signed by Lex Carroll MD> 09/21/22 0804 [facility] Work Phone: Hisrejp general Narrative - Reported* Type Description Date Medical History hypertension Medical History GERD Surgical History gallbladder Surgical History elbow surgery Surgical History mesh placement [facility] Other Hospital Discharge instructions Additional Instructions DISCHARGE [...] problems. -Follow up with PCP. -Office number [phone].[facility] Work Phone: Hospital Discharge instructions No data available for this section [facility] Progress note No data available for this section [facility] Summary Purpose Family History No Family [...] section and content) DATE CREATED AUTHOR 10/10/2017 [facility] DATE CREATED AUTHOR AUTHOR'S ORGANIZ ATION 07/14/2023 [facility] DATE CREATED AUTHOR AUTHOR'S ORGANIZ ATION 12/15/2023 [facility] DATE CREATED AUTHOR AUTHOR'S ORGANIZ ATION 12/20/2023 [facility] DATE CREATED AUTHOR AUTHOR'S ORGANIZ ATION 01/01/2024 [facility] Care Teams (unrecognized sec tion and [...] Active Lorna Ortega APRN Attending Provider Active [employer] Relationship Specialty Start Date End Date Rusty Delgado MD [address] [facility] [address] [place] [address] PCP - [employer] 04/17/22 Rusty Delgado MD [address] [facility] [address] [place] [address] PCP - General Internal Medicine 11/23/22 [employer] Relationship Specialty Start Date End Date Rusty Delgado MD [address] [facility] [address] [place] [address] PCP - [employer] 04/17/22 Rusty Delgado MD [address] [facility] [address] [place] [address] PCP - General Internal Medicine 11/23/22 Team [...] 2023 Team Status: Inactive Member Role Status oRsa Delgado II MD Primary Care Provider Active [...] Contact General Surgery Diagnoses Unspecified hemorrhoids Procedures [facility] OFFICE/OUTPATIENT [facility] 60 MINUTES Lorna Ortega MD [address] [address] [place] [address] [place] [address] Referral ID Status Reason Start Date Expiration Date V isits Requested Visits Authorized [id number] Closed Specialty Services Required 05/12/2023 11/08/2023 1 [...] BE BASED ON THE PRIMARY CLINICAL RECORDS. [facility] [employer] provides no warranty or guarantee of the accuracy or completeness of information in this document.
[2024-01-03 08:20] LABS: INR 1.17; Prothrombin Time 12.2 sec (9.0-11.6)
[2024-01-03] MEDS: LIDOCAINE HCL 10 ML, SODIUM BICARBONATE 1 MEQ INJ (08:30)
[2024-01-03 08:39] LABS: Alanine Aminotransferase 33 U/L (16-63); Albumin Globulin Ratio 0.5; Albumin Level 2.4 g/dL (3.4-5.0); Alkaline Phosphatase 124 U/L (46-116); Anion Gap 9.7; Aspartate Amino Transferase 55 U/L (15-37); BUN Creatinine Ratio 13.9; Bilirubin Total 1.4 mg/dL (0.2-1.0); Calcium 8.8 mg/dL (8.5-10.1); Carbon Dioxide 28.1 mmol/L (21.0-32.0); Chloride 101 mmol/L (98-107); Estimated GFR (African America >60 (>=60); Estimated GFR (Non-African Ame 59 (>=60); Globulin 4.6 g/dL; Glucose 116 mg/dL (74-106); Potassium 4.8 mmol/L (3.5-5.1); Sodium 134 mmol/L (136-145)
--- NOTE | 2024-01-03 09:57 | PC.NURSE ---
0900 Pt tolerated procedure well.
[2024-01-04 08:13] LABS: AFP, Serum, Tumor Marker 2.5 ng/mL (0.0-8.4)
== END 2024-01-03 09:15 | disposition home or self-care (01) ==
LOC: US 07:40
PROVIDERS: Radiology Diagnostic Radiology; PCP Internal Medicine
DX: K70.31 Alcoholic cirrhosis of liver with ascites (principal); R19.7 Diarrhea, unspecified
CPT/HCPCS: 36415; 49083; 74018; 80053; 82105; 85610

== ENCOUNTER 2024-01-24 12:12 | Day surgery (SDC) | payer MEDICARE, SELFPAY ==
--- NOTE | 2024-01-24 | US_ITS ---
[address] [address] Patient Name: LOYD BLANDON MRN: [id number] date: 1955 Sex: M Assigned Patient Location: Current Patient Location: Accession/Order Number: [id number] Exam Date: 01/24/2024 13:00 Report Date: 01/24/2024 15:27 At the request of: NON-STAFF PHYSICIAN Procedure: US paracentesis abd w/image EXAMINATION: US paracentesis abd w/image HISTORY: Alcoholic cirrhosis of liver with ascites COMPARISON: No relevant comparison available. DESCRIPTION: Informed consent was obtained. The patient was prepped and draped in standard sterile fashion. Ultrasound-guided paracentesis was performed in the usual sterile manner using 1% Xylocaine. FINDINGS: SITE: Right lower quadrant NEEDLE: Paracentesis 8 Fr. catheter over 18 gauge needle MEDICATION: 1% buffered Xylocaine for local anesthesia FLUID DESCRIPTION: Slightly opaque yellowish fluid. FLUID VOLUME: 4.5 L COMPLICATIONS: No immediate postprocedural locations. LABORATORY: None; therapeutic paracentesis. OTHER: Negative. US/US paracentesis abd w/image IMPRESSION: 1. Successful therapeutic paracentesis with removal of all of the intraperitoneal fluid; 4.5 L. Electronically authenticated by: WARD FERRER Date: 01/24/2024 15:27
--- OUTSIDE RECORDS SUMMARY | 2024-01-24 12:25 | XMS_ITS | CCD ---
Author Organization [facility] Care Team Providers Care Shade Bander Name Role Phone CHEMA, TANISHA Unavailable Unavailable [...] Provider DO Janneth Villegas Attending Provider [phone] JUDITH Delgado Primary Care Provider TALA Ortega Attending Provider MD Minh Griffith Attending Provider DO Janneth Villegas Attending Provider RUSTY DELGADO Primary Care Physician Janneth Villegas H Referring Unavailable Jourdan ARRIAZA Attending Unavailable JUDITH Delgado Primary Care Provider MD Ward Stern [facility] Devyn Attending Provider [facility], DO Devyn Attending Provider JUDITH Delgado Rusty Primary Care Provider [phone] MD Ward Stern Attending Provider MD Kin Hernandez V Attending Provider Rusty Delgado Primary Care Unavailable oLrna Ortega Admitting Unavailable Lorna Ortega Attending Unavailable Itandrey, Janneth Attending Unavailable Itzphilomena, Janneth Admitting Unavailable Rusty Delgado Primary Care Unavailable Rusty Delgado Primary Care Unavailable Minh Griffith Admitting UnavailMinh Romero Attending Unavailabl e Itzphilomena, Janneth Admitting Unavailable Bakari, Janneth Attending Unavailable Rusty Delgado Primary Care Unavailable Rusty Delgado Primary Care Unavailable Ward Stern Admitting Unavailable Ward Stern Attending Unavailable Kin Hernandez V Admitting Unavailable Kin Hernandez V Attending Unavailable Ward Stern Admitting Unavailable Ward Stern Attending Unavailable Rusty Delgado Primary Care Unavailable [facility], Devyn Admitting Unavailable [facility] Attending Unavailable Rusty Delgado Primary Care Unavailable Rusty Delgado Primary Care Unavailable Lorna Ortega Admitting Unavailable Lorna Ortega Attending Unavailable RESEARCH, GENERIC Referring Unavailable ARIAS JESUS Referring Unavailable JESUSARIAS Referring Unavailable TRACY JOHNSONA Attending Unavailable IRENA JOHNSON Attending Unavailable ANN MARIE ARIAS Attending Unavailable JESUS ARIAS Admitting Unavailable JESUS ARIAS Attending Unavailable JESUS ARIAS Referring Unavailable JOHNSON, IRENA Admitting Unavailable JOHNSONTRACYA Attending Unavailable IVANA IRENA Referring Unavailable BAKARI, JANNETH H Attending Unavailable LORNA ORTEGA Referring Unavailable BAKARI, JANNETH H Attending Unavailable JANNETH VILLEGAS H Attending Unavailable JANNETH VILLEGAS H Attending Unavailable FABY ECHEVARRIA Attending Unavailable WARD ESPARZA Attending Unavailable FABY ECHEVARRIA Referring Unavailable RUSTY DELGADO Attending Unavailable RUSTY DELGADO Referring Unavailable WARD ESPARZA Referring Unavailable WARD ESPARZA Referring Unavailable LYNDSEY PATEL Attending Unavailable WARD ESPARZA Referring Unavailable ROSALINO LAMAS Attending Unavailable RUSTY DELGADO Attending Unavailable RUSTY DELGADO Attending Unavailable FABY ECHEVARRIA Attending Unavailable IRA WALKER Attending Unavailable DEVAUGHN SMITH Referring Unavailable Allergies Allergy Classification Reported Allergen(s) Allergy Type Date of Onset Reaction(s) Facility (1 source) sulfamethoxazole / trimethoprim; Translations: [SULFAMETHOXAZOLE-TR IMETHOPRIM] [facility] [address] Medic[facility] Current Medications Medication [...] 0 Active baclofen 20 mg oral tablet (7 sources) gamma-Aminobutyric Acid-ergic Agonist Start: 07-05-2023 take 20 mg by mouth once daily at bedtime Baclofen Active 20 MG PO Daily at bedtime July 05, 2023 12:00am calcium carbonate 1250 mg / cholecalciferol 125 unt oral tablet (8 sources) Vitamin D Start: 06-02-2023 take 1 [...] esomeprazole 40 mg delayed release oral capsule (20 sources) Proton Pump Inhibitor Start: 06-02-2023 Esomeprazole [...] 05/18/2023 Discontinued furosemide 40 mg oral tablet (17 sources) Loop Diuretic Start: 06-02-2023 take 1 [...] 05/10/2023 Active ibuprofen 800 mg oral tablet (8 sources) Nonsteroidal Anti-inflammatory Drug Start: 06-02-2023 take 800 mg by mouth three times daily Ibuprofen Active 800 MG PO Three times daily June 02, 2023 1:00am lansoprazole 30 mg delayed release oral capsule (7 sources) Proton Pump Inhibitor Start: 07-05-2023 take [...] Daily. 0 Active Multivitamin (Daily Multi-Vitamin) tablet (8 sources) Start: 06-02-2023 take 1 tablet by mouth once daily Multivitamin (Daily Multi-Vitamin) tablet Active 1 TAB PO Daily June 02, 2023 1:00am Start: 06-02-2023 take 1 tablet by vlad th once daily Multivitamin (Daily Multi-Vitamin) tablet Active 1 TAB PO Daily June 02, 2023 12:00am ondansetron 4 mg oral tablet (14 sources) Serotonin-3 Receptor Antagonist Start: 07-05-2023 take 4 mg by mouth three times daily Ondansetron Hcl Active 4 MG PO Three times daily July 05, 2023 9:32am Start: 07-05-2023 End: 07-05-2023 take 4 mg by mouth once daily Ondansetron Hcl Disconti nued 4 MG PO Daily July 05, 2023 12:00am July 05, 2023 9:32am spironolactone 100 mg oral tablet (17 sources) Aldosterone Antagonist Start: 06-02-2023 take 1 tablet by mouth once daily in the morning Spironolactone Active 100 MG PO Every morning June 02, 2023 1:00am FreeTextSi tablet Orally Once a day; Note: Source Status: Taking; Refills: 11; Provider: Shannon Syed Start: 04-12-2023 take 1 tablet by vlad once daily spironolactone (Aldactone) 100 MG tablet TAKE 1 TABLET BY MOUTH EVERY DAY FOR 30 DAYS 0 05/10/2023 Active Completed/Discontinued Medications Medication Drug Class(es) Dates Sig (Normalized) Sig (Original) acetaminophen 325 mg / oxyCODONE hydrochloride 5 mg oral tablet (7 sources) Opioid Agonist Start: 06-13-2023 End: 07-05-2023 take 1 tablet by mouth every six hours Oxycodone-Acetami nophen (Percocet) 5-325 mg tablet Discontinued 1 TAB PO Q6H 28 7 June 13, 2023 July 05, 2023 9:01am uvndyrf-lveczfhod-fwgn 333-133-5 MG per tablet (1 source) End: 05-18-2023 calcium-magnesium -zinc 333-133-5 MG per tablet Take 1 tablet by mouth in the morning and 1 tablet at noon and 1 tablet in the evening. Take with meals. 0 05/18/2023 Discontinued hydroCHLOROthiazide 25 mg / triamterene 37.5 mg oral capsule (20 sources) Potassium-spari ng Diuretic, Thiazide Diuretic Start: 06-13-2023 End: 07-05-2023 Triamterene-[place] chlorothiazid Discontinued CAP June 13, 2023 1:00am [...] Discontinued metoprolol tartrate 25 mg oral tablet (15 sources) beta-Adrenergic Nikunj Start: 09-19-2022 End: 06-02-2023 [...] [Hypo-osmolality and hyponatremia] Onset: 4 Episodic Hemorrhoids (7 sources) Internal hemorrhoids grade II; Translations: [Second [...] Episodic Other disorders of stomach and duodenum (7 sources) Disorder of function of stomach; Translations: [...] not elsewhere classified Chronic Other liver diseases (14 sources) Cirrhosis of liver; Translations: [Unspecified cirrhosis [...] unspecified] Onset: 08-07-2023 Episodic Nausea and vomiting (17 sources) Nausea; Translations: [Nausea] Onset: 04-26-2023 Episodic [...] Name Value Interpretation Reference Range Facility 36on 01-17-2024 36 [facility] 01-16-2024 Orders Only [id number] Ambrosio Blandon emma 1955 M Date Provider Department Center 01/16/202460146-MFDDCGIBSON HAZEL [facility] No family history on file [facility] Orders Onlyon 01-04-2024 Orders Only [id number] Ambrosio Blandon emma 1955 M Date Provider Department Center 01/04/2024 [id number], HISTORICAL [facility] No family history on file [facility] 36on 01-03-2024 36 Called patient with results with his repeat BMP obtained 01/03/24. His Creatinine is stable at 1.22 with his current dose of Lasix 60mg and Aldactone 150mg daily. I recommended that we continue his current dose of Lasix and Aldactone at this time. He did have a paracentesis with 4L removed today. Of note, patient's did mention that she has had to skip doses of Coreg due to systolic blood pressures of 80mmHg. I did instruct her that he can restart the Coreg if systolic blood pressures are >90mmHg. He is still pending MRI/MRCP. Did remind them to obtain a paracentesis the day prior or the day of MRI. [facility] 36 ----- Message from Rachel Doan MA sent at 01/03/2024 9:53 AM EDT ----- A new document has been added to this order with description [facility] Lab results. [facility] Orders Onlyon 01-03-2024 Orders Only [id number] Ambrosio Blandon emma 1955 M Date Provider Department Center 01/03/2024 [id number], HISTORICAL GI Medical [facility] No family history on file [facility] Telephoneon 01-03-2024 Telephone [id number] Ambrosio Blandon 1955 M Date Provider Department Center 01/03/2024 Chip6-MARITO MAE [facility] GA[facility] None No family history on file [facility] 36on 01-01-2024 36 [facility], instructed to take Lasix 60mg daily. expressed understanding. I did instruct her that we would like repeat BMP to assess potassium and Creatinine, Monday or Monday. She is planning to have this done at [facility] on Monday. I did provide the fax number to our clinic for results. She is awaiting scheduling for MRI and Abdominal XR at [place]. [facility] Refillon 12-30-2023 Refill [id number] Jamia,Wil emma 1955 [facility] Provider Department Center 12/30/202352806-CDIFDGIBSON TAYLOR GI Medical [facility]avi No family history on file Reason for Visit and Comments: Med Refill [[id number]] [facility] 36on 12-29-2023 36 Patient's saucedo d in to say that the lab at [place] told her insurance doesn't cover the Enteric Bacterial DNA stool and it is $1500, they told her if we sent in an order for a stool culture is would be similar and insurance would cover that. Also the lab doesn't do the fecal fat 24 hours, but will do the fecal fat 72 hours. Please advise. [facility] 36 Patient's carmen ng again for clarification of lasix dosage 60mg daily on the office note, 60mg BID on the prescription. She is concerned about giving him the correct dosage and frequency. [facility] Documentationon 12-29-2023 Documentation [id number] Ambrosio Blandon 1955 [facility] Provider Department Center 12/29/2023 ZAKIYA GRANADOS MP GI Medical [facility]avi No family history on file [facility] Orders Onlyon 12-29-2023 Orders Only [id number] Ambrosio Blandon 1955 M Date Provider Department Center 12/29/2023 EKATERINA ALMARAZ [facility] No family history on file [facility] Telephoneon 12-29-2023 Telephone [id number] Ambrosio Blandon 1955 M Date Provider Department Center 12/29/2023 BROOKLYNN ZEPEDA MP [facility] Medical [facility] No family history on file [facility] 36on 12-28-2023 36 Patient's carmen neil for clarification of Lasix dosage, on discharge plan it is written as 60mg daily, but the pharmacy gave her a bottle of lasix where the sig is written 60mg twice daily. She anxious and wants to make sure she gives him the correct dosage and frequency.Please advise. [facility] Telephoneon 12-28-2023 Telephone [id number] Ambrosio Blandon 1955 M Date [facility] Center 12/28/2023 BROOKLYNN ZEPEDA MP GI Medical Pavi No family history on file [facility] 37on 12-27-[address] [facility] tests. [...] (same day). This can be done at [place]. Please continue Rifaximin 550mg twice daily, and Lactulose once daily for encephalopathy Schedule a follow up appointment in 3 months. Normal [facility] AFP TUMOR MARKERon ALPHA FETOPROTEIN TUMOR MARKER 3 ng/mL Normal 0-9 [facility] Comment on above: Result Comment: INTE RPRETIVE INFORMATION: Alpha Fetoprotein Tumor Marker The [place] Access DxI AFP method is used. Results [...] reference intervals for this test in the [employer] Test Directory ([employer]). Performed By: [employer] [address] [place] [id number] Hand Riveter: Ira Lutz MD, PhD CLIA Number: [id number] Performed By: #### L [id number] #### [facility] (BEAKER) [address] [place] [address] CBCon 12-27-2023 Erythrocyte distribution width (RBC) [Ratio] 15.1 % High 11.5-15.0 [facility] Comment on above: Performed By: #### L [id number] #### [facility] (BEAKER) [address] [place] [address] ERYTHROCYTE MEAN CORPUSCULAR HEMOGLOBIN CONCENTRATION (G/DL) BY AUTOMATED 33.2 g/dL Normal 32.0-35.0 [facility] Comment on above: Performed By: #### L [id number] #### [facility] (BEAKER) [address] [place] [address] Hematocrit (Bld) [Volume fraction] 38.5 % Low 39.0-55.0 [facility] Comment on above: Performed By: #### L [id number] #### [facility] ([facility]ER) [address] [place] [address] Hemoglobin (Bld) [Mass/Vol] 12.8 g/dL Low 13.0-17.0 [facility] Comment on above: Performed By: #### L [id number] #### [facility] ([facility]) [address] [place] [address] MCH (RBC) [Entitic mass] 32.8 pg Normal 27.0-33.0 [facility] Comment on above: Performed By: #### L [id number] #### [facility] ([facility]) [address] [place] [address] MCV (RBC) [Entitic vol] 98.7 fL High 82.0-98.0 [facility] Comment on above: Performed By: #### L [id number] #### [facility] ([facility]) [address] [place] [address] PLATELETS (10*3/UL) IN BLOOD AUTOMATED COUNT 166 10*3/uL Normal 150-400 [facility] Comment on above: Performed By: #### L [id number] #### [facility] ([facility]) [address] [place] [address] RBC (Bld) [#/Vol] 3.90 10*6/uL Low 4.20-5.70 [facility] Comment on above: Performed By: #### L [id number] #### [facility] ([facility]) [address] [place] [address] WBC (Bld) [#/Vol] 4.72 10*3/uL Normal 4.00-10.60 [facility] Comment on above: Performed By: #### L [id number] #### [facility] ([facility]) [address] [place] [address] COMPREHENSIVE METABOLIC PANE Mayito 12-27-2023 Albumin [Mass/Vol] 3.1 g/dL Low 3.5-5.7 [facility] Comment on above: Performed By: #### L [id number] ####[facility] ([facility])[address] [place] [address] ALP [Catalytic activity/Vol] 120 U/L High 34-104 [facility] Comment on above: Performed By: #### L [id number] ####[facility] ([facility]ER)[address] [place] [address] ALT [Catalytic activity/Vol] 25 U/L Normal 7-52 [facility] Comment on above: Performed By: #### L [id number] ####[facility] ([facility]ER)[address] [place] [address] Anion gap [Moles/Vol] 12 mmol/L Normal 7-20 [facility] Comment on above: Performed By: #### L [id number] ####[facility] (BEAKER)[address] [place] [address] AST [Catalytic activity/Vol] 46 U/L High 13-39 [facility] Comment on above: Performed By: #### L [id number] ####[facility] ([facility]ER)[address] [place] [address] Bilirubin [Mass/Vol] 1.9 mg/dL High 0.3-1.0 [facility] Comment on above: Performed By: #### L [id number] ####[facility] ([facility])[address] [place] [address] Calcium [Mass/Vol] 9.0 mg/dL Normal 8.6-10.3 [facility] Comment on above: Performed By: #### L [id number] ####[facility] ([facility])[address] [place] [address] Chloride [Moles/Vol] 98 mmol/L Normal 98-107 [facility] Comment on above: Performed By: #### L [id number] ####[facility] ([facility]ER)[address] [place] [address] CO2 [Moles/Vol] 26 mmol/L Normal 21-31 [facility] Comment on above: Performed By: #### L [id number] ####[facility] ([facility]ER)[address] [place] [address] Creatinine [Mass/Vol] 1.11 mg/dL Normal 0.70-1.30 [facility] Comment on above: Performed By: #### L [id number] ####[facility] ([facility])[address] [place] [address] GLOMERULAR FILTRATION RATE ML/MIN/1.73 SQ M.PREDICTED 71.4 mL/min/1.73m*2 Normal >60.0 [facility] Comment on above: Result Comment: [facility]???s estimated glomerular filtration rate (eGFR) will [...] group of individuals. Performed By: #### L [id number] ####[facility] ([facility])[address] [place] [address] Glucose [Mass/Vol] 111 mg/dL High 70-100 [facility] Comment on above: Performed By: #### L [id number] ####[facility] ([facility])[address] [place] [address] Potassium [Moles/Vol] 4.4 mmol/L Normal 3.5-5.1 [facility] Comment on above: Performed By: #### L [id number] ####[facility] ([facility])[address] [place] [address] Protein [Mass/Vol] 7.3 g/dL Normal 6.0-8.3 [facility] Comment on above: Performed By: #### L [id number] ####[facility] ([facility])[address] [place] [address] Sodium [Moles/Vol] 132 mmol/L Low 136-145 [facility] Comment on above: Performed By: #### L [id number] ####[facility] ([facility]AKER)[address] [place] [address] Urea nitrogen [Mass/Vol] 17 mg/dL Normal 7-25 [facility] Comment on above: Performed By: #### L [id number] ####[facility] (BEAKER)[address] [place] [address] UREA NITROGEN/CREATININE (MASS RATIO) IN SER/PLAS 15.3 Normal [facility] Comment on above: Performed By: #### L [id number] ####[facility] (BEAKER)[address] [place] [address] Labon 12-27-2023 Lab [id number] Ambrosio Blandon 1955 M Date Provider Department Center 12/27/2023 2244-[facility] MP LAB RESOURCE MP DRAW Medical Pavi No family history on file Normal [facility] Office Visiton 12-27-2023 Follow-up visit [id number] JamiaAmbrosio 1955 M Date Provider Department Center 12/27/2023 298-IRENA JOHNSON MP GI Medical Pavi No family history on file Level of Service:04130 NM OFFICE/OUTPATIENT ESTABLISHED HIGH MDM 40 MIN () Reason for Visit and Comments: Follow-up [569882] Cirrhosis [239] Ascites [295] Normal [facility] PROTIME-INRon 12-27-2023 INR IN PPP BY COAGULATION ASSAY 1.21 High 0.90-1.10 [facility] Comment on above: Result Comment: ACCC [...] Performed By: #### L [id number] #### [facility] ([facility]ER) [address] [place] [address] PROTHROMBIN TIME (PT) IN PPP BY COAGULATION ASSAY 15.3 Seconds High 12.3-14.8 [facility] Comment on above: Performed By: #### L [id number] #### [facility] ([facility]) [address] [place] [address] 36on 12-21-2023 36 I called and spoke w ith the patient's in regards to his recent lab work after increasing his diuretics. His creatinine and electrolytes are grossly stable after increasing his Lasix and Aldactone. We will continue with the current regimen of Lasix 40 twice daily and Aldactone 200 mg daily and follow-up in hepatology clinic on 12/27/2023. Normal [facility] Orders Onlyon 12-21-2023 Orders Only [id number] Ambrosio Blandon 1955 M Date Provider Department Center 12/21/2023 [id number], HISTORICAL GI Medical [facility]avi No family history on file Normal [facility] Telephoneon 12-21-2023 Telephone [id number] Ambrosio Blandon 1955 M [facility] Provider Department Center 12/21/2023 [id number] HAZEL GI Medical Pavi No family history on file Normal [facility] Orders Onlyon 12-20-2023 Orders Only [id number] Ambrosio Blandon 1955 M [facility] Provider Department Center 12/20/2023 [id number], HISTORICAL GI Medical Pavi No family history on file [facility] 36on 12-14-2023 36 Geriatric Physician faxed lab ord ers to [facility]. Normal [facility] 36 ----- Message from Serena Hazel MD sent at 12/14/2023 1:36 PM EDT ----- Petra, I sent over a prescription for his diuretics and recommended that they have repeat CMP next week. The order has been placed, can you please fax this to [facility] so that they can get them done next week? Thank you so much ----- Message ----- From: Rachel Doan MA Sent: 12/13/2023 1:35 PM EDT To: Gibson Hazel MD A new document has been added to this order with description CMP results [facility]. [facility] 36 Patient's sheryl lu last week asking for increased prescription dose [...] assess his diuretics further at that time. [facility] Orders Onlyon 12-14-2023 Orders Only [id number] Ambrosio Blandon 1955 M Date Provider Department Center 12/14/202356141-DPXTAGIBSON HAZEL GI Medical Pavi No family history on file [facility] Telephoneon 12-14-2023 Telephone [id number] Ambrosio Blandon 1955 M Date Provider Department Center 12/14/202348809-YPHZEGIBSON HAZEL MP GI Medical Pavi No family history on file [facility] Orders Onlyon 12-13-2023 Orders Only [id number] Ambrosio Blandon 1955 M Date Provider Department Center 12/13/2023 [id number], MAGALIS GI Medical [facility]avi No family history on file [facility] 36on 12-11-2023 36 Patient's repor ts [...] an appointment in hepatology clinic on 12/27/2023. [facility] 36 of patient call s today stating that when they went for paracentesis at [place] last week - the patient was admitted. [...] clinic visit with Dr. Johnson on 12/27/2023. [facility] Orders Onlyon 12-11-2023 Orders Only [id number] Ambrosio Blandon 1955 M Date Provider Department Center 12/11/202338976-YBBZRGIBSON HAZEL GI Medical Pavi No family history on file [facility] Telephoneon 12-11-2023 Telephone [id number] Ambrosio Blandon 1955 M Date Provider Department Center 12/11/202354825-YPMIKGIBSON HAZEL GI Medical Pavi No family history on file Normal [facility] Mayito 12-08-2023 L Specimen: Received: 12/11/23 Status: SERAEmilie Coffey Num: [id number] Spec Type: Cytology Subm Dr: Devyn Winter DO Tissues: A PLEURAL FLUID (PLEUR) Procedures: HE/2, Gross/Micro L4, Cyto Prepstain, PAPSTN Age/ Patient Sex Location Account Attending Physician Charles Blandon 68/M LABELL [id number] Devyn Winter DO SPEC NUM: [id number] RECD: 12/11/23 STATUS: HUSAM COFFEY NUM: [id number] WEN: 12/08/[address]: Devyn Winter DO ENTERED: 12/11/[address]: Aliza Arroyo SPEC TYPE: Cytology DEPT: MARLEN VALDEZ ENTERED BY: [id number] RECV BY: [id number] ORDERED: HE/2, Gross/Micro L4, Cyto Prepstain, PAPSTN [...] performed supporting the above interpretation Specimen: Received: 12/11/23 Status: HUSAM Coffey Num: [id number] Spec Type: Cytology Subm Dr: Devyn Winter DO Tissues: A PLEURAL FLUID (PLEUR) Procedures: HE/2, Gross/Micro L4, Cyto Prepstain, PAPSTN Patient: JamiaCharles [id number] (Continued) Specimen: [id number] Received: 12/11/23 (Continued) Signed (signature on file) Windy Duque MD 12/14/23 1503 Specimen: [id number] Received: 12/11/23 Status: HUSAM Coffey Num: [id number] Spec Type: Cytology Subm Dr: Devyn Winter DO Tissues: A PLEURAL FLUID (PLEUR) Procedures: HE/2, Gross/Micro L4, Cyto Prepstain, PAPSTN Patient: JamiaCharles [id number] (Continued) Specimen: BC Received: 12/11/23 (Continued) CPT Codes [id number] Specimen: Received: 12/11/23 Status: HUSAM Coffey Num: [id number] Spec Type: Cytology Subm Dr: Devyn Winter DO Tissues: A PLEURAL FLUID (PLEUR) Procedures: HE/2, Gross/Micro L4, Cyto Prepstain, PAPSTN Patient: Charles Blandon [id number] (Continued) Signed (signature on file) Windy Duque MD 12/14/23 1503 Normal [facility] Physician [facility] 12-07-2023 L Specimen: Received: 12/14/23 Status: HUSAM Coffey Num: [id number] Spec Type: Cytology Subm Dr: Ward Stern MD Tissues: A ASCITES (ASC) Procedures: HE/2, Gross/Micro L4, Cyto Prepstain, PAPSTN Age/ Patient Sex Location Account Attending Physician Charles Blandon 68/M LABELL [id number] Ward Stern MD SPEC NUM: [id number] RECD: 12/14/23 STATUS: HUSAM COFFEY NUM: [id number] WEN: 12/07/23 DR: Ward Stern MD ENTERED: 12/14/23 [facility] DR: Dina,Lab SPEC TYPE: Cytology DEPT: [facility] ENTERED BY: [id number] RECV BY: [id number] ORDERED: HE/2, Gross/Micro L4, Cyto Prepstain, PAPSTN [...] supporting the above interpretation Specimen: [id number] Received: 12/14/23 Status: HUSAM Coffey Num: [id number] Spec Type: Cytology Subm Dr: Ward Stern MD Tissues: A ASCITES (ASC) Procedures: HE/2, Gross/Micro L4, Cyto Prepstain, PAPSTN Patient: Charles Blandon [id number] (Continued) Specimen: [id number] Received: 12/14/23 (Continued) Signed (signature on file) Windy Duque MD 12/19/23 1440 Specimen: Received: 12/14/23 Status: HUSAM Coffey Num: [id number] Spec Type: Cytology Subm Dr: Ward Stern MD Tissues: A ASCITES (ASC) Procedures: HE/2, Gross/Micro L4, Cyto Prepstain, PAPSTN Patient: Charles Blandon [id number] (Continued) Specimen: Received: 12/14/23 (Continued) CPT Codes 34152 86850 Specimen: Received: 12/14/23 Status: HUSAM Coffey Num: [id number] Spec Type: Cytology Subm Dr: Ward Stern MD Tissues: A ASCITES (ASC) Procedures: HE/2, Gross/Micro L4, Cyto Prepstain, PAPSTN Patient: Charles Blandon [id number] (Continued) Signed (signature on file) Robert-Fabio Duque MD 12/19/23 5368 Normal [facility] 36on 12-01-[address] Hazel in clinic, order placed and faxed to [facility] at [phone] [facility] 36 calls stating t hat patient is in need of an order for paracentesis. Order will need to be sent to [facility]. Normal [facility] Orders Onlyon 12-01-2023 Orders Only [id number] Ambrosio Blandon 1955 M Date Provider Department Center 12/01/202356810-GHDANGIBSON HAZEL [facility] No family history on file [facility] HPon 11-27-2023 HP ----- ----- Attestation [...] PROT B12/Folate/Iron studies: No results found for: [id number] , FOLATE , IRON , TIBC , UIBC , IRONSAT , FERRITIN ASSESSMENT AND PLAN Charles Blandon is a 68 y.o. male who has a known past medical history significant for alcoholic liver cirrhosis, Recinos's esophagus and hepatic encephalopathy is scheduled today for an EGD for esophageal varices screening. Plan: Plan for EGD today for esophageal varices secondary to liver cirrhosis. Normal [facility] POCT GLUCOSE METER UNSOLICIT ED RESULTSon 11-27-2023 Glucose [Mass/Vol] 101 mg/dL Normal 70-105 [facility] Comment on above: Order Comment: Waive d Testing in the ED is performed under the ED CLIA certificate #[id number]. Result Comment: jhag eman Performed By: #### L [id number] #### [facility] ([facility]ER) [address] [place] [address] 36on 11-21-2023 36 Appeal submitted Normal [facility] Orders Onlyon 11-21-2023 Orders Only [id number] Ambrosio Blandon emma 1955 M Date Provider Department Center 11/21/2023 BROOKLYNN ZEPEDA MP [facility] No family history on file Normal [facility] Prep for Procedureon 024 Prep for Procedure [id number] Ambrosio Blandon emma 1955 M Date Provider Department Center 11/21/2023 IRENA SCHMIDT [facility] No family history on file Normal [facility] MR ABDOMEN W AND WO CONTRAST [...] signed: Adalid Montiel. 9 Invalid Interpretation Code [facility] Orders Only11-08-2023 Orders Only [id number] Ambrosio Blandon 1955 M [facility] Provider Department Center 11/08/2023 [id number]-YBEIZPBROOKLYNN JOSHUA [facility] No family history on file Normal [facility] 11-02-2023 36 Patient's carmen jolynn to verify that Dr. Jesus will now be prescribing the Famotidine and Baclofen because the previously prescribing physician no longer will now that he is a [facility] patient. The preferred pharmacy is [facility] in [place]. Please advise and these orders can then be pended. Normal [facility] Orders Only11-02-2023 Orders Only [id number] Ambrosio Blandon 1955 M Date Provider Department Center 11/02/2023 [id number]-MRURZAOA, HISTORICAL MP GI Medical [facility] No family history on file Normal [facility] 3610-26-2023 36 I called the patient [...] MRI of his liver on the . [facility] Orders Onlyon 10-26-2023 Orders Only [id number] Ambrosio Blandon 1955 M Date Provider Department Center 10/26/202324187-VNFWKGIBSON TAYLOR MP [facility] No family history on file [facility] Telephoneon 10-26-2023 Telephone [id number] Ambrosio Blandon 1955 M Date Provider Department Center 10/26/202315750-HCUZGGIBSON HAZEL [facility] No family history on file [facility] Orders Onlyon 10-24-2023 Orders Only [id number] Ambrosio Blandon 1955 M Date Provider Department Center 10/24/2023 [id number], MAGALIS [facility] No family history on file [facility] Orders Onlyon 10-20-2023 Orders Only [id number] Ambrosio Blandon 1955 M Date Provider Department Center 10/20/2023 RUFINO [facility] Medical No family history on file [facility] 36on 10-18-2023 36 I called [...] we can follow-up on his sodium level. [facility] 36 Patients called stating they [...] back from you to clarify some things. [facility] Orders Onlyon 10-18-2023 Orders Only [id number] Ambrosio Blandon 1955 M Date Provider Department Center 10/18/2023EKATERINA QUINTANILLA [facility] No family history on file [facility] Telephoneon 10-18-2023 Telephone [id number] Ambrosio Blandon 1955 M Date Provider Department Center 10/18/202367326-HIYERGIBSON ESPOSITO MP GI Medical [facility]avi No family history on file [facility] Orders Onlyon 10-17-2023 Orders Only [id number] Ambrosio Blandon 1955 M Date Provider Department Center 10/17/202354638-QYPEUGIBSON ESPOSITO MP GI Medical [facility]avi No family history on file [facility] Documentationon 10-16-2023 Documentation [id number] Ambrosio Blandon 1955 M Date Provider Department Center 10/16/2023 CARMELLA NICOLE MP [facility] No family history on file Reason for Visit and Comments: Specialty Pharmacy Note: Xifaxan PAP [Other] [facility] Prep for Procedureon 024 Prep for Procedure [id number] Ambrosio Blandon 1955 M Date Provider Department Center 10/16/2023 IRENA SCHMIDT [facility] No family history on file Normal [facility] BASIC METABOLIC PANELon - Anion gap [Moles/Vol] 14 mmol/L Normal 7-20 [facility] Comment on above: Performed By: #### L AB15 #### [facility] ([facility]) [address] [place] [address] Calcium [Mass/Vol] 9.1 mg/dL Normal 8.6-10.3 [facility] Comment on above: Performed By: #### L AB15 #### [facility] (BEAKER) [address] [place] [address] Chloride [Moles/Vol] 96 mmol/L Low 98-107 [facility] Comment on above: Performed By: #### L [id number] #### [facility] (BEAKER) [address] [place] [address] CO2 [Moles/Vol] 22 mmol/L Normal 21-31 [facility] Comment on above: Performed By: #### L [id number] #### [facility] (BEAKER) [address] [place] [address] Creatinine [Mass/Vol] 1.00 mg/dL Normal 0.70-1.30 [facility] Comment on above: Performed By: #### L [id number] #### [facility] (BEAKER) [address] [place] [address] GLOMERULAR FILTRATION RATE ML/MIN/1.73 SQ M.PREDICTED 81.0 mL/min/1.73m*2 Normal >60.0 [facility] Comment on above: Result Comment: [facility]???s estimated glomerular filtration rate (eGFR) will [...] Performed By: #### L [id number] #### [facility] ([facility]) [address] [place] [address] Glucose [Mass/Vol] 108 mg/dL High 70-100 [facility] Comment on above: Performed By: #### L AB15 #### [facility] ([facility]) [address] [place] [address] Potassium [Moles/Vol] 4.8 mmol/L Normal 3.5-5.1 [facility] Comment on above: Performed By: #### L AB15 #### [facility] ([facility]) [address] [place] [address] Sodium [Moles/Vol] 127 mmol/L Low 136-145 [facility] Comment on above: Performed By: #### L AB15 #### [facility] ([facility]) [address] [place] [address] Urea nitrogen [Mass/Vol] 13 mg/dL Normal 7-25 [facility] Comment on above: Performed By: #### L [id number] #### [facility] ([facility]) [address] [place] [address] UREA NITROGEN/CREATININE (MASS RATIO) IN SER/PLAS 13.0 Normal [facility] Comment on above: Performed By: #### L AB15 #### [facility] ([facility]) [address] [place] [address] CBCon 10-13-2023 Erythrocyte distribution width (RBC) [Ratio] 14.2 % Normal 11.5-15.0 [facility] Comment on above: Performed By: #### L [id number] #### [facility] ([facility]) [address] [place] [address] ERYTHROCYTE MEAN CORPUSCULAR HEMOGLOBIN CONCENTRATION (G/DL) BY AUTOMATED 34.5 g/dL Normal 32.0-35.0 [facility] Comment on above: Performed By: #### L [id number] #### [facility] ([facility]) [address] [place] [address] Hematocrit (Bld) [Volume fraction] 38.0 % Low 39.0-55.0 [facility] Comment on above: Performed By: #### L [id number] #### [facility] ([facility]) [address] [place] [address] Hemoglobin (Bld) [Mass/Vol] 13.1 g/dL Normal 13.0-17.0 [facility] Comment on above: Performed By: #### L [id number] #### [facility] ([facility]) [address] [place] [address] MCH (RBC) [Entitic mass] 34.4 pg High 27.0-33.0 [facility] Comment on above: Performed By: #### L [id number] #### [facility] ([facility]) [address] [place] [address] MCV (RBC) [Entitic vol] 99.7 fL High 82.0-98.0 [facility] Comment on above: Performed By: #### L [id number] #### [facility] ([facility]) [address] [place] [address] PLATELETS (10*3/UL) IN BLOOD AUTOMATED COUNT 212 10*3/uL Normal 150-400 [facility] Comment on above: Performed By: #### L [id number] #### [facility] ([facility]) [address] [place] [address] RBC (Bld) [#/Vol] 3.81 10*6/uL Low 4.20-5.70 [facility] Comment on above: Performed By: #### L [id number] #### [facility] ([facility]) [address] [place] [address] WBC (Bld) [#/Vol] 6.20 10*3/uL Normal 4.00-10.60 [facility] Comment on above: Performed By: #### L [id number] #### [facility] ([facility]) [address] [place] [address] HEPATIC FUNCTION PANELon Albumin [Mass/Vol] 3.4 g/dL Low 3.5-5.7 [facility] Comment on above: Performed By: #### L [id number] #### [facility] ([facility]) [address] [place] [address] ALP [Catalytic activity/Vol] 114 U/L High 34-104 [facility] Comment on above: Performed By: #### L [id number] #### [facility] ([facility]) [address] [place] [address] ALT [Catalytic activity/Vol] 23 U/L Normal 7-52 [facility] Comment on above: Performed By: #### L [id number] #### [facility] ([facility]) [address] [place] [address] AST [Catalytic activity/Vol] 48 U/L High 13-39 [facility] Comment on above: Performed By: #### L [id number] #### [facility] ([facility]) [address] [place] [address] Bilirubin [Mass/Vol] 1.5 mg/dL High 0.3-1.0 [facility] Comment on above: Performed By: #### L [id number] #### [facility] ([facility]) [address] [place] [address] Magnesium [Mass/Vol] 0.5 mg/dL High 0-0.2 [facility] Comment on above: Performed By: #### L [id number] #### [facility] ([facility]) [address] [place] [address] Protein [Mass/Vol] 7.8 g/dL Normal 6.0-8.3 [facility] Comment on above: Performed By: #### L [id number] #### [facility] (BEAKER) [address] [place] [address] Labon 10-13-2023 Lab [id number] Ambrosio Blandon 1955 M Date Provider Department Center 10/13/2023 2244-[facility] MP LAB RESOURCE MP DRAW Medical Pavi No family history on file Normal [facility] Office Visiton 10-13-2023 Follow-up visit [id number] Ambrosio Blandon 1955 M Date Provider Department Center 10/13/2023 298-IRENA JOHNSON MP GI Medical [facility]avi No family history on file Level of Service:29860 NM OFFICE/OUTPATIENT ESTABLISHED HIGH MDM 40 MIN (GC) Reason for Visit and Comments: Cirrhosis [239] Ascites [295] Normal [facility] PROTIME-INRon 10-13-2023 INR IN PPP BY COAGULATION ASSAY 1.17 High 0.90-1.10 [facility] Comment on above: Result Comment: ACCC [...] Performed By: #### L [id number] #### [facility] ([facility]AKER) [address] [place] [address] PROTHROMBIN TIME (PT) IN PPP BY COAGULATION ASSAY 14.9 Seconds High 12.3-14.8 [facility] Comment on above: Performed By: #### L [id number] #### [facility] ([facility]) [address] [place] [address] Orders Onlyon 10-06-2023 Orders Only [id number] Jamia,Ambrosio emma 1955 M Date Provider Department Center 10/06/2023 [id number]-[id number], HISTORICAL MP GI Medical [facility]avi No family history on file Normal [facility] Mayito 10-03-2023 L Specimen: BC Received: 10/04/23 Status: HUSAM Coffey Num: [id number] Spec Type: Cytology Subm Dr: Arias Jesus MD Tissues: A ASCITES (ASC) Procedures: HE/2, Gross/Micro L4, Cyto Prepstain, PAPSTN Age/ Patient Sex Location Account Attending Physician Charles Blandon 68/M LABELL [id number] Ward Stern MD SPEC NUM: [id number] RECD: 10/04/23 STATUS: HUSAM COFFEY NUM: [id number] WEN: 10/03/[address]: Arias Jesus MD ENTERED: 10/04/23 [facility] DR: Dina,Lab Ward Stern MD SPEC TYPE: Cytology DEPT: [facility] ENTERED BY: [id number] RECV BY: [id number] ORDERED: HE/2, Gross/Micro L4, Cyto Prepstain, PAPSTN ORDERED: HE/2, Gross/Micro L4, Cyto Prepstain, PAPSTN Pathological Diagnosis Ascites fluid cytology: Atypical cells noted. Clinical Information cirrhosis, liver lesion Gross Description Received is 1000 ml yellow cloudy unfixed fluid for cytology said to have been obtained as abdominal ascites fluid. ThinPrep and cell block preparations are prepared for microscopic examination. (NH/me) CPT Codes 18492 Specimen: [id number] Received: 10/04/23 Status: HUSAM Coffey Num: [id number] Spec Type: Cytology Subm Dr: Arias Jesus MD Tissues: A ASCITES (ASC) Procedures: HE/2, Gross/Micro L4, Cyto Prepstain, PAPSTN Patient: Charles Blandon [id number] (Continued) Signed (signature on file) Linette Bean MD 10/05/23 1340 Normal [facility] Orders Onlyon 09-27-2023 Orders Only [id number] Ambrosio Blandon 1955 M Date Provider Department Center 09/27/2023 204-HARSHA [facility] GI [facility] No family history on file Normal [facility] CREATININE, SERUMon 09-25-19 Creatinine [Mass/Vol] 1.06 mg/dL Normal 0.70-1.30 [facility] Comment on above: Performed By: #### L [id number] #### [facility] (BEAKER) [address] [place] [address] GLOMERULAR FILTRATION RATE ML/MIN/1.73 SQ M.PREDICTED 75.5 mL/min/1.73m*2 Normal >60.0 [facility] Comment on above: Result Comment: [facility]???s estimated glomerular filtration rate (eGFR) will [...] group of individuals. Performed By: #### L [id number] #### [facility] (BEAKER) [address] [place] [address] CTA ABDOMEN PELVIS W IV CONT RASTon [...] Gan MD. Not Vldtd Invalid Interpretation Code [facility] Labon 09-25-2023 Lab [id number] Ambrosio Blandon 1955 M Date Provider Department Center 09/25/2023 2245-[facility] LAB RESOURCE [facility] Medical C No family history on file Normal [facility] Orders Onlyon 09-23-2023 Orders Only [id number] Ambrosio Blandon emma 1955 M Date Provider Department Center 09/23/2023 204-HARSHA [facility] GI [facility] No family history on file Normal [facility] Orders Onlyon 09-15-2023 Orders Only [id number] Ambrosio Blandon 1955 M Date Provider Department Center 09/15/2023 [id number], BETH GI Medical [facility]avi No family history on file Normal [facility] Orders Onlyon 09-14-2023 Orders Only [id number] Ambrosio Blandon 1955 M Date Provider Department Center 09/14/2023 BROOKLYNN ZEPEDA MP GI Medical Pavi No family history on file Normal [facility] Orders Onlyon 08-28-2023 Orders Only [id number] Ambrosio Blandon 1955 M Date Provider Department Center 08/28/2023 [id number], HISTORICAL MP GI Medical Pavi No family history on file Normal [facility] Orders Onlyon 08-24-2023 Orders Only [id number] Ambrosio Blandon 1955 M Date Provider Department Center 08/24/2023 U9107-SQTNAZTB, HISTORICAL MP GI Medical Pavi No family history on file Normal [facility] 29on 08-09-2023 29 Addended by: ARIAS JESUS on: 08/09/2023 12:50 PM Modules accepted: Orders Normal [facility] Orders Onlyon 08-09-2023 Orders Only [id number] Ambrosio Blandon 1955 M Date Provider Department Center 08/09/2023 JASON COFFEY GI Medical [facility]avi No family history on file [facility] Office Visiton 08-07-2023 Follow-up visit [id number] Ambrosio Blandon 1955 M Date Provider Department Center 08/07/2023 294-ARIAS JESUS GI Medical [facility]avi No family history on file Level of Service:30660 NM OFFICE/OUTPATIENT NEW LOW MDM 30 MINUTES (GC) Reason for Visit and Comments: New Patient [632] Weight Loss [471133] - 30 pound weight loss since . Pt recently had surgery for 3 polyps removed and 1 hemorrhoid removal. Dyskenisia of esophgaus [Other] Nausea [70] Vomiting [120] - Pt has a urge to but does not vomit. Normal [facility] Mayito 06-13-2023 L Specimen: [id number] Received: 06/14/23 Status: HUSAM Coffey Num: [id number] Spec Type: Surgical Subm Dr: Janneth Villegas DO Tissues: A Hemorrhoids (HEMORRHOID 9:00) Procedures: HE, Gross/Micro L3 Age/ Patient Sex Location Account Attending Physician Charles Blandon 67/M [place] [id number] Janneth Villegas DO SPEC NUM: [id number] RECD: 06/14/23 STATUS: HUSAM REMartin NUM: [id number] WEN: 06/13/[address]: Janneth Villegas DO ENTERED: 06/14/[address] [facility] DR: SPEC TYPE: Surgical DEPT: S ORDERED: [...] 2.5 x 1.5 cm. Both fragments demonstrate pink-andesron glistening mucosa. The largest fragment demonstrates what appears to be a discrete transition to more bazzi velvety mucosa. There are no suspicious surface lesions identified. Sectioning demonstrates soft cut surfaces with diffusely dilated blood-filled spaces. Merchandiser Seasonal sections are submitted in 1 cassette as follows: A1 - 1 solar manufacturer's representative section from each fragment to demonstrate change in mucosal types of the largest fragment CPT Codes 03673 Specimen: [id number] Received: 06/14/23 Status: HUSAM Coffey Num: [id number] Spec Type: Surgical Subm Dr: Janneth Villegas DO Tissues: A Hemorrhoids (HEMORRHOID 9:00) Procedures: HE, Gross/Micro L3 Patient: Charles Blandon [id number] (Continued) Signed (signature on file) Linette Bean MD 06/27/23 2239 Normal [facility] Automated basophil %Ordered By: Janneth Villegas on 06-02-2023 Basophils/100 WBC (Bld) 0.7 % Normal . [facility] Comment on above: Performed By: #### B MP, CBC #### [facility] [address] Automated basophil countOrde red By: Janneth Villegas on 06-02-2023 Basophils (Bld) [#/Vol] 0.0 10*3/uL Normal 0.0-0.2 [facility] Comment on above: Result Comment: PERF ORMED BY: [facility] [address] [place] [address] PATHOLOGIST [employer] ACT OFFICER CLARK LEARY M.D. Performed By: #### B MP, CBC #### [address] Automated blood monocyte cou ntOrdered By: Janneth Villegas on 06-02-2023 Monocytes (Bld) [#/Vol] 0.9 10*3/uL High 0.0-0.8 [facility] Comment on above: Performed By: #### B MP, CBC #### [address] Automated eosinophil %Ordere d By: Janneth Villegas on 06-02-2023 Eosinophils/100 WBC (Bld) 1.9 % Normal . [facility] Comment on above: Performed By: #### B MP, CBC #### [address] Automated eosinophil countOr dered By: Janneth Villegas on 06-02-2023 Eosinophils (Bld) [#/Vol] 0.1 10*3/uL Normal 0.0-0.45 [facility] Comment on above: Performed By: #### B MP, CBC #### [address] Automated monocyte %Ordered By: Janneth Villegas on 06-02-2023 Monocytes/100 WBC (Bld) 15.7 % Normal . [facility] Comment on above: Performed By: #### B MP, CBC #### [address] Automated neutrophil %Ordere d By: Janneth Villegas on 06-02-2023 Neutrophils/100 WBC (Bld) 68.5 % Normal . [facility] Comment on above: Performed By: #### B MP, CBC #### [address] Basic Metabolic Panelon 05-18 GFR/1.73 sq M.predicted MDRD (S/P/Bld) [Vol rate/Area] mL/min/{1.73_m2} Normal [facility] Comment on above: Performed By: #### B MP, CBC #### [address] Calcium [Mass/volume] in Ser um or PlasmaOrdered By: Janneth Villegas on 06-02-2023 Calcium [Mass/Vol] 8.6 mg/dL Normal 8.6-10.3 [facility] Comment on above: Result Comment: PERF ORMED BY: [place] [address] PATHOLOGIST COMMUNITY REINVESTMENT ACT OFFICER CLARK LEARY M.D. Performed By: #### B MP, CBC #### [address] Carbon dioxide, total [Moles /volume] in Serum or PlasmaOrdered By: Janneth Villegas on 06-02-2023 CO2 [Moles/Vol] 27.3 mmol/L Normal 21.0-31.0 [facility] Comment on above: Performed By: #### B MP, CBC #### [address] Chloride [Moles/volume] in S mateo or PlasmaOrdered By: Janneth Villegas on 06-02-2023 Chloride [Moles/Vol] 96 mmol/L Low 98-107 [facility] Comment on above: Performed By: #### B MP, CBC #### [address] Complete Blood Count Auto Di ffon 06-02-2023 Mean Corpuscular HGB Conc 35.2 g/dL Normal 32.5-35.6 [facility] Comment on above: Performed By: #### B MP, CBC #### [address] NRBC% 0.1 /100{WBC} Normal 0-0.5 [facility] Comment on above: Performed By: #### B MP, CBC #### [address] Creatinine [Mass/volume] in Serum or PlasmaOrdered By: Janneth Villegas on 06-02-2023 Creatinine [Mass/Vol] 1.07 mg/dL Normal 0.70-1.30 [facility] Comment on above: Performed By: #### B MP, CBC #### [facility] [address] [place] [address] [facility] ECG 12 lead ECGon 06-02-2023 ECG 12 lead ECG [facility] [place] [address] [place] [address] Electrocardiograph Report Signed Patient: Charles Blandon MR#: [id number] 66 : 1955 Acct:[id number] Age/Sex: 67 / M ADM Date: 06/02/23 Loc: Room: Type: [facility] Attending Dr: Janneth Villegas DO Ordering [...] previous ECGs available Confirmed by Gurpreet Dyson ([id number]) on 06/02/2023 6:21:10 PM Referred By: VENKAT VILLEGAS Electronically Signed By:Gurpreet Dyson Transcribed By: MUS Signed By Gurpreet Dyson MD 06/02/23 1821 Normal [facility] [facility] Erythrocyte distribution wid th [Ratio] by Automated countOrdered By: Janneth Villegas on 06-02-2023 Erythrocyte distribution width (RBC) [Ratio] 13.8 % Normal 12.0-14.8 [facility] Comment on above: Performed By: #### B MP, CBC #### [facility] [address] [place] [address] Erythrocytes [#/volume] in B lood by Automated countOrdered By: Janneth Villegas on 06-02-2023 RBC (Bld) [#/Vol] 3.45 10*6/uL Low 3.90-5.60 [facility] Comment on above: Performed By: #### B BRADLEY, CBC #### [address] Glucose [Mass/volume] in Ser um or PlasmaOrdered By: Janneth Villegas on 06-02-2023 Glucose [Mass/Vol] 132 mg/dL High 70-100 [facility] Comment on above: ADA recommended refe rence rangeRandom Glucose Reference Range is dependent on time and content of last meal. Glucose of more than 200 mg/dL in a nonstressed, ambulatory subject supports the diagnosis of Diabetes Mellitus. Result Comment: [place] om Glucose Reference Range is dependent on time and content of last meal. Glucose of more than 200 mg/dL in a nonstressed, ambulatory subject supports the diagnosis of Diabetes Mellitus. ADA recommended reference range Performed By: #### B BRADLEY, CBC #### [address] Hematocrit [Volume Fraction] of Blood by Automated countOrdered By: Janneth Villegas on 06-02-2023 Hematocrit (Bld) [Volume fraction] 35.5 % Low 38.8-50.0 [facility] Comment on above: Performed By: #### B BRADLEY, CBC #### [address] Hemoglobin [Mass/volume] in BloodOrdered By: Janneth Villegas on 06-02-2023 Hemoglobin (Bld) [Mass/Vol] 12.5 g/dL Low 13.0-17.0 [facility] Comment on above: Performed By: #### B BRADLEY, CBC #### [address] Leukocytes [#/volume] correc jamila for nucleated erythrocytes in Blood by Automated counOrdered By: Janneth Villegas on 06-02-2023 WBC corrected for nucl RBC Auto (Bld) [#/Vol] 5.7 10*3/uL 4.1-10.5 [facility] Leukocytes [#/volume] in Blo od by Automated countOrdered By: Janneth Villegas on 06-02-2023 WBC (Bld) [#/Vol] 5.7 10*3/uL Normal 4.1-10.5 [facility] Comment on above: Performed By: #### B MP, CBC #### [facility] [address] [place] [address] Lymphocytes [#/volume] in Bl ood by Automated countOrdered By: Janneth Villegas on 06-02-2023 Lymphocytes (Bld) [#/Vol] 0.7 10*3/uL Low 1.00-4.8 [facility] Comment on above: Performed By: #### B MP, CBC #### [facility] [address] [place] [address] Lymphocytes/100 leukocytes i n Blood by Automated countOrdered By: Janneth Villegas on 06-02-2023 Lymphocytes/100 WBC (Bld) 13.2 % Normal . [facility] Comment on above: Performed By: #### B MP, CBC #### [facility] [address] [place] [address] MCH [Entitic mass] by Automa jamila countOrdered By: Janneth Villegas on 06-02-2023 MCH (RBC) [Entitic mass] 36.2 pg High 27.5-35.2 [facility] Comment on above: Performed By: #### B MP, CBC #### [facility] [address] [place] [address] MCHC Auto (RBC) [Mass/Vol]Or dered By: Janneth Villegas on 06-02-2023 MCHC (RBC) [Mass/Vol] 35.2 g/dL 32.5-35.6 [facility] MCV [Entitic volume] by Auto mated countOrdered By: Janneth Villegas on 06-02-2023 MCV (RBC) [Entitic vol] 102.9 fL High 83.5-101 [facility] Comment on above: Performed By: #### B MP, CBC #### [facility] [address] Neutrophils [#/volume] in Bl ood by Automated countOrdered By: Janneth Villegas on 06-02-2023 Neutrophils (Bld) [#/Vol] 3.9 10*3/uL Normal 1.8-7.7 [facility] Comment on above: Performed By: #### B MP, CBC #### [facility] [address] No Panel InformationOrdered By: Janneth Villegas on 06-02-2023 Estimated GFR (CKD-EPI) > 60.0 mL/Min [facility] Creatinine Clearance (Chem N/A [facility] Nucleated erythrocytes [Pres ence] in Blood by Automated countOrdered By: Janneth Villegas on 06-02-2023 Nucleated RBC Auto Ql (Bld) 0.1 /100{WBC} 0-0.5 [facility] Platelet mean volume [Entiti c volume] in Blood by Automated countOrdered By: Janneth Villegas on 06-02-2023 Platelet mean volume (Bld) [Entitic vol] 8.1 fL Normal 6.6-10.1 [facility] Comment on above: Performed By: #### B MP, CBC #### [facility] [address] Platelets [#/volume] in Bloo d by Automated countOrdered By: Janneth Villegas on 06-02-2023 Platelets (Bld) [#/Vol] 153 10*3/uL Normal 150-450 [facility] Comment on above: Performed By: #### B MP, CBC #### [facility] [address] Potassium [Moles/volume] in Serum or PlasmaOrdered By: Janneth Villegas on 06-02-2023 Potassium [Moles/Vol] 4.8 mmol/L Normal 3.5-5.1 [facility] Comment on above: Performed By: #### B MP, CBC #### [facility] [address] [place] [address] Serum or plasma anion gap de terminationOrdered By: Janneth Villegas on 06-02-2023 Anion gap [Moles/Vol] 13.5 mmol/L Normal 6.0-15.0 [facility] Comment on above: Performed By: #### B MP, CBC #### [facility] [address] [place] [address] Sodium [Moles/volume] in Ser um or PlasmaOrdered By: Janneth Villegas on 06-02-2023 Sodium [Moles/Vol] 132 mmol/L Low 136-145 [facility] Comment on above: Performed By: #### B BRADLEY, CBC #### [facility] [address] [place] [address] Urea nitrogen [Mass/volume] in Serum or PlasmaOrdered By: Janneth Villegas on 06-02-2023 Urea nitrogen [Mass/Vol] 12 mg/dL Normal 7-25 [facility] Comment on above: Performed By: #### B BRADLEY, CBC #### [address] [place] gastric emptying studyon 04-26-2023 NM gastric emptying study [facility] [place] [address] Nuclear Medicine Report Signed Patient: Charles Blandon MR#: [id number] 66 : 1955 Acct:[id number] Age/Sex: 67 / M ADM Date: 04/26/23 Loc: [place] Room: Type: [facility] Attending Dr: Lorna Ortega APRN Copies [...] GASTROPARESIS. Impression dictated by: Morales Alvarez Jr., DEileen04/26/2023 10:18 AM Dictation Location: [place] [address] Transcribed By: ROLAND 04/26/23 1018 Dictated By: Morales Alvarez Jr, DO 04/26/23 1017 Signed By: 04/26/23 1018 Normal [facility] Albumin [Mass/volume] in Ser um or Plasma by Bromocresol green (BCG) dye binding methoOrdered By: Lorna Ortega on 04-12-2023 Albumin BCG dye [Mass/Vol] 3.0 g/dL 3.5-5.7 [facility] Bilirubin.total [Mass/volume ] in Serum or PlasmaOrdered By: Lorna Ortega on 04-12-2023 Bilirubin [Mass/Vol] 1.3 mg/dL High 0.3-1.0 [facility] Comment on above: Samples from [...] Bilirubin. Performed By: #### C MP #### [address] Calcium [Mass/volume] in Ser um or PlasmaOrdered By: Lorna Ortega on 04-12-2023 Calcium [Mass/Vol] 8.3 mg/dL Low 8.6-10.3 [facility] Comment on above: Order Comment: Reaso n for Exam Cirrhosis of liver Performed By: #### C MP #### [facility] [address] Carbon dioxide, total [Moles /volume] in Serum or PlasmaOrdered By: Lorna Ortega on 04-12-2023 CO2 [Moles/Vol] 27.3 mmol/L Normal 21.0-31.0 [facility] Comment on above: Order Comment: Reaso n for Exam Cirrhosis of liver Performed By: #### C MP #### [facility] [address] [place] [id number] [facility] Comprehensive Metabolic Pane mayito 04-12-2023 Albumin [Mass/Vol] 3.131894 g/dL Low 3.5-5.7 g/dL [facility] Bilirubin [Mass/Vol] 1.0648179 mg/dL High 0.3- 1.0 mg/dL [facility] Calcium [Mass/Vol] 8.9669569 mg/dL Low 8.6-10 .3 mg/dL [facility] CO2 [Moles/Vol] 27.31531755 mmol/L Normal 21.0-3 1.0 mmol/L [facility] Creatinine [Mass/Vol] 0.64367206 mg/dL Normal 0. 70-1.30 mg/dL [facility] Potassium [Moles/Vol] 5.98143555 mmol/L Normal 3 .5-5.1 mmol/L [facility] Protein [Mass/Vol] 6.268942 g/dL Low 6.4-8.9 g/dL [facility] Comprehensive Metabolic Panel 3.3 g/dL [facility] Albumin [Mass/Vol] 3.0 g/dL Low 3.5-5.7 [facility] Comment on above: Order Comment: Reaso n for Exam Cirrhosis of liver Performed By: #### C MP #### [address] GFR/1.73 sq M.predicted MDRD (S/P/Bld) [Vol rate/Area] mL/min/{1.73_m2} Normal [facility] Comment on above: Order Comment: Reaso n for Exam Cirrhosis of liver Performed By: #### C MP #### [facility] [address] [place] [address] Comprehensive Metabolic Pane lOrdered By: Lorna Ortega on 04-12-2023 Albumin/Globulin [Mass ratio] 0.9 {ratio} Normal [facility] Comment on above: Order Comment: Reaso n for Exam Cirrhosis of liver Performed By: #### C MP #### [address] ALP [Catalytic activity/Vol] 158 U/L High 34-104 [facility] Comment on above: Order Comment: Reaso n for Exam Cirrhosis of liver Result Comment: PERF ORMED BY: [place] [address] PATHOLOGIST [employer] OFFICER CLARK LEARY M.D. Performed By: #### C MP #### [address] ALT [Catalytic activity/Vol] 35 U/L Normal 7-52 [facility] Comment on above: Order Comment: Reaso n for Exam Cirrhosis of liver Performed By: #### C MP #### [place] [address] [place] AST [Catalytic activity/Vol] 76 U/L High 13-39 [facility] Comment on above: Order Comment: Reaso n for Exam Cirrhosis of liver Performed By: #### C MP #### [place] [address] [place] Chloride [Moles/Vol] 95 mmol/L Low 98-107 [facility] Comment on above: Order Comment: Reaso n for Exam Cirrhosis of liver Performed By: #### C MP #### [place] [address] [place] Glucose [Mass/Vol] 94 mg/dL Normal 70-100 [facility] Comment on above: ADA recommended refe rence rangeRandom Glucose Reference Range is dependent on time and content of last meal. Glucose of more than 200 mg/dL in a nonstressed, ambulatory subject supports the diagnosis of Diabetes Mellitus. Order Comment: Reaso n for Exam Cirrhosis of liver Result Comment: [place] [facility] Glucose Reference Range is dependent on time and content of last meal. Glucose of more than 200 mg/dL in a nonstressed, ambulatory subject supports the diagnosis of Diabetes Mellitus. ADA recommended reference range Performed By: #### C MP #### [facility] [address] Sodium [Moles/Vol] 127 mmol/L Low 136-145 [facility] Comment on above: Order Comment: Reaso n for Exam Cirrhosis of liver Performed By: #### C MP #### [facility] [address] Urea nitrogen [Mass/Vol] 9 mg/dL Normal 7-25 [facility] Comment on above: Order Comment: Reaso n for Exam Cirrhosis of liver Performed By: #### C MP #### [facility] [address] [place] [id number] [facility] Creatinine [Mass/volume] in Serum or PlasmaOrdered By: Lorna Ortega on 04-12-2023 Creatinine [Mass/Vol] 0.81 mg/dL Normal 0.70-1.30 [facility] Comment on above: Order Comment: Reaso n for Exam Cirrhosis of liver Performed By: #### C MP #### [facility] [address] No Panel InformationOrdered By: Lorna Ortega on 04-12-2023 Estimated GFR (CKD-EPI) > 60.0 mL/Min [facility] Creatinine Clearance (Chem N/A [facility] Potassium [Moles/volume] in Serum or PlasmaOrdered By: Lorna Ortega on 04-12-2023 Potassium [Moles/Vol] 5.1 mmol/L Normal 3.5-5.1 [facility] Comment on above: Order Comment: Reaso n for Exam Cirrhosis of liver Performed By: #### C MP #### [address] Protein [Mass/volume] in Ser um or PlasmaOrdered By: Lorna Ortega on 04-12-2023 Protein [Mass/Vol] 6.3 g/dL Low 6.4-8.9 [facility] Comment on above: Order Comment: Reaso n for Exam Cirrhosis of liver Performed By: #### C MP #### [address] Serum globulin measurement b y calculation (mass/volume)Ordered By: Lorna Ortega on 04-12-2023 Globulin (S) [Mass/Vol] 3.3 g/dL Normal [facility] Comment on above: Order Comment: Reaso n for Exam Cirrhosis of liver Performed By: #### C MP #### [address] Serum or plasma anion gap de terminationOrdered By: Lorna Ortega on 04-12-2023 Anion gap [Moles/Vol] 9.8 mmol/L Normal 6.0-15.0 [facility] Comment on above: Order Comment: Reaso n for Exam Cirrhosis of liver Performed By: #### C MP #### [address] XR RIBS 2 VIEWS LEFT WITH [...] muscle IgG Qn (S) 8 Units 0-19 [facility] Comment on above: Negative 0 - 19 Weak positive 20 - 30 Moderate to strong positive >30 Actin Antibodies are found in 52-85% of patients with autoimmune hepatitis or chronic active hepatitis and in 22% of patients with primary biliary cirrhosis. Alanine aminotransferase [En zymatic activity/volume] in Serum or PlasmaOrdered By: Lex Carroll on 09-21-2022 ALT [Catalytic activity/Vol] 30 U/L 7-52 [facility] Albumin [Mass/volume] in Ser um or Plasma by Bromocresol green (BCG) dye binding methoOrdered By: Lex Carroll on 09-21-2022 Albumin BCG dye [Mass/Vol] 3.6 g/dL 3.5-5.7 [facility] Alkaline phosphatase [Enzyma tic activity/volume] in Serum or PlasmaOrdered By: Lex Carroll on 09-21-2022 ALP [Catalytic activity/Vol] 96 U/L 34-104 [facility] Aspartate aminotransferase [ Enzymatic activity/volume] in Serum or PlasmaOrdered By: Lex Carroll on 09-21-2022 AST [Catalytic activity/Vol] 55 U/L 13-39 [facility] Basophils Auto (Bld) [#/Vol] Ordered By: Lex Carroll on 09-21-2022 Basophils (Bld) [#/Vol] 0.0 10*3/uL 0.0-0.2 [facility] Basophils/100 WBC Auto (Bld) Ordered By: Lex Carroll on 09-21-2022 Basophils/100 WBC (Bld) 0.9 % . [facility] Bilirubin.total [Mass/volume ] in Serum or PlasmaOrdered By: Lex Carroll on 09-21-2022 Bilirubin [Mass/Vol] 0.9 mg/dL 0.3-1.0 [facility] Calcium [Mass/volume] in Ser um or PlasmaOrdered By: Lex Carroll on 09-21-2022 Calcium [Mass/Vol] 8.7 mg/dL 8.6-10.3 [facility] Carbon dioxide, total [Moles /volume] in Serum or PlasmaOrdered By: Lex Carroll on 09-21-2022 CO2 [Moles/Vol] 26.9 mmol/L 21.0-31.0 [facility] Chloride [Moles/volume] in S mateo or PlasmaOrdered By: Lex Carroll on 09-21-2022 Chloride [Moles/Vol] 108 mmol/L 98-107 [facility] Cholesterol [Mass/volume] in Serum or PlasmaOrdered By: Lex Carroll on 09-21-2022 Cholesterol [Mass/Vol] 175 mg/dL 140-200 [facility] Comment on above: Chol less than 200 m g/dl low riskChol 201-239 mg/dl borderline riskChol 240 mg/dl and greater high risk Cholesterol in LDL Calc [Mas s/Vol]Ordered By: Lex Carroll on 09-21-2022 Cholesterol in LDL [Mass/Vol] 94 mg/dL 0-100 [facility] Comment on above: LDL ATP III CLASSIFI CATIONLDL less than 100 mg/dL OptimalLDL 100-129 mg/dL Near or above optimalLDL 130-159 mg/dL Borderline highLDL 160-189 mg/dL HighLDL greater than 189 mg/dL Very high Cholesterol in VLDL Calc [Ma ss/Vol]Ordered By: Lex Carroll on 09-21-2022 Cholesterol in VLDL [Mass/Vol] 21 mg/dL [facility] Creatinine [Mass/volume] in Serum or PlasmaOrdered By: Lex Carroll on 09-21-2022 Creatinine [Mass/Vol] 0.90 mg/dL 0.70-1.30 [facility] Eosinophils Auto (Bld) [#/Vo l]Ordered By: Lex Carroll on 09-21-2022 Eosinophils (Bld) [#/Vol] 0.2 10*3/uL 0.0-0.45 [facility] Eosinophils/100 WBC Auto (Bl d)Ordered By: Lex Carroll on 09-21-2022 Eosinophils/100 WBC (Bld) 3.6 % . [facility] Erythrocyte distribution wid th Auto (RBC) [Ratio]Ordered By: Lex Carroll on 09-21-2022 Erythrocyte distribution width (RBC) [Ratio] 14.2 % 12.0-14.8 [facility] Globulin Calc (S) [Mass/Vol] Ordered By: Lex Carroll on 09-21-2022 Globulin (S) [Mass/Vol] 2.8 g/dL [facility] Glucose [Mass/volume] in Ser um or PlasmaOrdered By: Lex Carroll on 09-21-2022 Glucose [Mass/Vol] 123 mg/dL 70-100 [facility] Comment on above: ADA recommended refe rence rangeRandom Glucose Reference Range is dependent on time and content of last meal. Glucose of more than 200 mg/dL in a nonstressed, ambulatory subject supports the diagnosis of Diabetes Mellitus. Hematocrit Auto (Bld) [Volum e fraction]Ordered By: Lex Carroll on 09-21-2022 Hematocrit (Bld) [Volume fraction] 37.5 % 38.8-50.0 [facility] Hemoglobin [Mass/volume] in BloodOrdered By: Lex Carroll on 09-21-2022 Hemoglobin (Bld) [Mass/Vol] 12.9 g/dL 13.0-17.0 [facility] Hepatitis B virus surface Ag [Presence] in Serum or Plasma by ImmunoassayOrdered By: Lex Carroll on 09-21-2022 HBV surface Ag IA Ql Negative Negative [facility] Hepatitis C virus IgG Ab [Pr esence] in Serum or Plasma by ImmunoassayOrdered By: Lex Carroll on 09-21-2022 HCV IgG IA Ql Non-Reactive Non Reactive [facility] - CoagulationOrde red By: Lex Carroll on 09-21-2022 PT Coag (PPP) [Time] 13.0 s 9.0-12.9 [facility] Leukocytes [#/volume] correc jamila for nucleated erythrocytes in Blood by Automated counOrdered By: Lex Carroll on 09-21-2022 WBC corrected for nucl RBC Auto (Bld) [#/Vol] 4.2 10*3/uL 4.1-10.5 [facility] Lymphocytes Auto (Bld) [#/Vo l]Ordered By: Lex Carroll on 09-21-2022 Lymphocytes (Bld) [#/Vol] 1.1 10*3/uL 1.00-4.8 [facility] Lymphocytes/100 WBC Auto (Bl d)Ordered By: Lex Carroll on 09-21-2022 Lymphocytes/100 WBC (Bld) 27.1 % . [facility] MCH Auto (RBC) [Entitic mass ]Ordered By: Lex Carroll on 09-21-2022 MCH (RBC) [Entitic mass] 35.0 pg 27.5-35.2 [facility] MCHC Auto (RBC) [Mass/Vol]Or dered By: Lex Carroll on 09-21-2022 MCHC (RBC) [Mass/Vol] 34.4 g/dL 32.5-35.6 [facility] MCV Auto (RBC) [Entitic vol] Ordered By: Lex Carroll on 09-21-2022 MCV (RBC) [Entitic vol] 101.9 fL 83.5-101 [facility] Monocytes Auto (Bld) [#/Vol] Ordered By: Lex Carroll on 09-21-2022 Monocytes (Bld) [#/Vol] 0.5 10*3/uL 0.0-0.8 [facility] Monocytes/100 WBC Auto (Bld) Ordered By: Lex Carroll on 09-21-2022 Monocytes/100 WBC (Bld) 11.3 % . [facility] Neutrophils Auto (Bld) [#/Vo l]Ordered By: Lex Carroll on 09-21-2022 Neutrophils (Bld) [#/Vol] 2.4 10*3/uL 1.8-7.7 [facility] Neutrophils/100 WBC Auto (Bl d)Ordered By: Lex Carroll on 09-21-2022 Neutrophils/100 WBC (Bld) 57.1 % . [facility] No Panel InformationOrdered By: Lex Carroll on 09-21-2022 Estimated GFR (CKD-EPI) > 60.0 mL/Min [facility] Hepatitis B Core Total Antibody Negative Negative [facility] Comment on above: Performed at: - [address] [id number] Director: John Tang PhD, Phone: [phone] Hepatitis C Interpretation See comment . [facility] Comment on above: Not infected with HC V unless early or acute infection issuspected (which may be delayed in an immunocompromisedindividual), or other evidence exists to indicate HCVinfection. Hepatitis C RNA Quantitative N/A [facility] Creatinine Clearance (Chem 88.23 [facility] Nucleated erythrocytes [Pres ence] in Blood by Automated countOrdered By: Lex Carroll on 09-21-2022 Nucleated RBC Auto Ql (Bld) 0.2 /100{WBC} 0-0.5 [facility] Platelet mean volume Auto (B ld) [Entitic vol]Ordered By: Lxe Carroll on 09-21-2022 Platelet mean volume (Bld) [Entitic vol] 9.8 fL 6.6-10.1 [facility] Platelet poor plasma interna tional normalized ratio (INR) by coagulation assay (relatOrdered By: Lex Carroll on 09-21-2022 INR Coag (PPP) [Relative time] 1.1 {INR} [facility] Comment on above: INR Therapeutic Rang [...] 09-21-2022 Platelets (Bld) [#/Vol] 91 10*3/uL 150-450 [facility] Potassium [Moles/volume] in Serum or PlasmaOrdered By: Lex Carroll on 09-21-2022 Potassium [Moles/Vol] 5.0 mmol/L 3.5-5.1 [facility] Protein [Mass/volume] in Ser um or PlasmaOrdered By: Lex Carroll on 09-21-2022 Protein [Mass/Vol] 6.4 g/dL 6.4-8.9 [facility] RBC Auto (Bld) [#/Vol]Ordere d By: Lex Carroll on 09-21-2022 RBC (Bld) [#/Vol] 3.68 10*6/uL 3.90-5.60 [facility] Serum [id number] me asurementOrdered By: Lex Carroll on 09-21-2022 Alpha 1 antitrypsin [Mass/Vol] 205 mg/dL 101-187 [facility] Serum hepatitis B virus surf [place] [...] M2 IgG Qn (S) <20.0 Units 0.0-20.0 [facility] Comment on above: Negative 0.0 - 20.0 Equivocal 20.1 - 24.9 Positive >24.9Mitochondrial (M2) Antibodies are found in 90-96% ofpatients with primary biliary cirrhosis.Performed at: [place] [id number] Director: John Tang PhD, Phone: [phone] Serum or plasma albumin/glob ulin mass ratioOrdered By: Lex Carroll on 09-21-2022 Albumin/Globulin [Mass ratio] 1.3 {ratio} [facility] Serum or plasma alpha 1 anti trypsin phenotyping identification by immunofixationOrdered By: Lex Carroll on 09-21-2022 Alpha 1 antitrypsin phenotyping Immunofixation Nom Mm . [facility] Comment on above: Phenotype Population A-1-AT [...] reference. Ranges used to confirm phenotype.Performed at: [facility] [address] [id number] Director: John Tang PhD, Phone: [phone] at: [facility] [address] [id number] Director: George Brown MD, Phone: [phone] Serum or plasma anion gap de terminationOrdered By: Lex Carroll on 09-21-2022 Anion gap [Moles/Vol] 11.1 mmol/L 6.0-15.0 [facility] Serum or plasma ceruloplasmi n measurement (mass/volume)Ordered By: Lex Carroll on 09-21-2022 Ceruloplasmin [Mass/Vol] 22.4 mg/dL 16.0-31.0 [facility] Comment on above: Performed at: [facility] [address] [id number] Director: John Tang PhD, Phone: [phone] Serum or plasma free cefurox nhi measurement (mass/volume)Ordered By: Lex Carroll on 09-21-2022 Cefuroxime free [Mass/Vol] Negative Negative [facility] Comment on above: Performed at: [employer] [place] [id number] Director: John Tang PhD, Phone: [phone] Serum or plasma high density lipoprotein (HDL) cholesterol measurementOrdered By: Lex Carroll on 09-21-2022 Cholesterol in HDL [Mass/Vol] 60 mg/dL 23-92 [facility] Comment on above: HDL CHOL ATP-III CLA SSIFICATION Cardiovascular RiskHDL > or equal to 60 mg/dL LOWHDL < 40 mg/dL HIGH Serum or plasma total choles terol/high density lipoprotein (HDL) cholesterol mass ratOrdered By: Lex Carroll on 09-21-2022 Cholesterol.total/Chol esterol in HDL [Mass ratio] 2.9 {ratio} <5.0 [facility] Sodium [Moles/volume] in Ser um or PlasmaOrdered By: Lex Carroll on 09-21-2022 Sodium [Moles/Vol] 141 mmol/L 136-145 [facility] Triglyceride [Mass/volume] i n Serum or PlasmaOrdered By: Lex Carroll on 09-21-2022 Triglyceride [Mass/Vol] 107 mg/dL 0-149 [facility] Comment on above: TRIG ATP III CLASSIF ICATIONTRIG less than 150 mg/dL NormalTRIG 150-199 mg/dL Borderline highTRIG 200-500 mg/dL High TRIG greater than 500 mg/dL Very highStandard traceable to the Center for Disease Conrtrol and Prevention (CDC) test method. Urea nitrogen [Mass/volume] in Serum or PlasmaOrdered By: Lex Carroll on 09-21-2022 Urea nitrogen [Mass/Vol] 9 mg/dL 7-25 [facility] WBC Auto (Bld) [#/Vol]Ordere d By: Lex Carroll on 09-21-2022 WBC (Bld) [#/Vol] 4.2 10*3/uL 4.1-10.5 [facility] PROGRESSon 04-05-2017 PROGRESS HNO ID: [id number] Author: Bebe Cunningham Ma Service: (none) Author Type: (none) Type: Progress Notes Filed: 04/05/2017 7:36 AM Note Text: PCP updated [facility] PROGRESS HNO ID: [id number] thor: Tanisha Clarkice: (none)Author Type: PhysicianType: Progress NotesFiled: 04/05/2017 7:36 AMNote Text:This note was created using Pocket Talesriter.Marcio Blandon is a 61 year old male.Review of SystemsObjectiveThere were no vitals taken for this visit.Physical ExamAssessment and PlanPlease remove me as PCP if he is moving out of state and plans toestablish elsewhere.Thank you. [facility] CNPTOUTREACHon 04-04-2017 [facility] Patient Outreach ([facility]) JAMIANATHANIEL Stafford AM ([id number]) 1955 MDate Time Provider Jrcgwrhfmg09/19/17 TANISHA VAZQUEZ [facility] During your visit today, we recorded the following information about you:Bebe Cunningham Ma 04/05/2017 7:36 AM SignedSee refill request 03/30, pt moving to out of [facility] , do you want to updatePCPAmbadriana Vazquez MD 04/05/2017 7:36 AM SignedThis note was created using Pocket Talesriter.AfshinWill jonathon Traore Jamia is a 61 year old male.Review of SystemsObjectiveThere were no vitals taken for this visit.Physical ExamAssessment and PlanPlease remove me as PCP if he is moving out of [facility]Thank you.Bebe Cunningham Ma 04/05/2017 7:36 AM SignedPCP updatedAllergies As of Date: 04/04/2017 Noted Allergy ReactionBACTRIM (SULFAMETHOXAZOLE-TRIMETH *12/15/2014 2 - RashDate Reviewed: 01/04/2017Reviewed by: Bebe Cunningham Ma - Fully AssessedReason for Visit: PHMA/Care Gap Outreach [[id number]]Prescriptions as of 04/04/2017 Sig: METOPROLOL SUCCINATE ER [...] polyps [Z86.010]Follow-up and Disposition History RecordedEncounter Number: [id number] Status:Closed by BEBE CUNNINGHAM MA on 04/05/17 [facility] PROGRESSon 04-04-2017 PROGRESS HNO ID: [id number] Author: Bebe Cunningham Ma Service: (none) Author Type: (none) Type: Progress Notes Filed: 04/05/2017 7:36 AM Note Text: See refill request 03/30, pt moving to out of [facility] , do you want to update PCP [facility] OBSOLETEon 03-30-2017 OBSOLETE Refill ([facility]) NATHANIEL BLANDON [facility] ([id number]) 1955 [facility] Iynqfovwhe86/14/17 TANISHA VAZQUEZ [facility] During your visit today, we recorded the following information about you:Bebe Cunningham Ma 03/30/2017 4:25 PM SignedPt due for yearly split in Shyam Cunningham Ma 03/31/2017 3:12 PM SignedPt states they are moving to [place] he has apt to see a new PCP therebut he does not have enough medication till aptScript pending please review/fileAmy Chrissy Sauceda CNP, HERNANDEZ 03/31/2017 3:39 PM SignedThe [...] 1 capsule by mouth once daily. CHIDI: Lydia Ye As of Date: 03/30/2017 Noted Allergy ReactionBACTRIM [...] discontinue is not on file. Status:Closed by RENETTA SAUCEDA CNP on 03/31/17 [facility] 02-13-2017 [facility] Nurse Visit ([facility]) NATHANIEL BLANDON AM ([id number]) 1955 MDate Time Provider Uhplkvbitl21/30/17 5:50 PM [facility] During your visit today, we recorded [...] colonic polyps [Z86.010] Status:Closed by JUNAID OFFICE MGR OTONIEL on 02/13/17 [facility] 02-13-2017 [facility] NATHANIEL BLANDON AM ([id number]) 1955 MDate Time Provider Tdyejaudmy83/30/17 TANISHA VAZQUEZ During your visit today, we recorded the following information about you:Bebe Cunningham Ma 02/13/2017 2:35 PM SignedMessage from [facility]:Original authorizing provider: Ruben Iqbal would like a refill of the following medications:zolpidem (AMBIEN) 10 mg tab [Tanisha Vazquez MD]Preferred pharmacy: [id number] [place] [address] - [address] - [phone] [facility] [place] [address]Trxiwub:Bebe Cunningham Ma 02/13/2017 2:38 PM SignedScript pending please review/fileLast filled 04/28/16Next appt: 02/13/2017 nurse visit (flu shot )Last appt: 01/04/2017Tanisha Vazquez MD 02/13/2017 2:45 PM SignedPlease advise the patient that the prescription has been refilled.Thank you,Shirley Iqbal Ma 02/13/2017 2:55 PM SignedScript called Tigistgeneva As of Date: 02/13/2017 Noted Allergy ReactionBACTRIM [...] Status:Closed by TANISHA VAZQUEZ MD on 02/13/17 [facility] CNOVon 01-04-2017 CNOV Office Visit ([facility]) NATHANIEL BLANDON AM ([id number]) 1955 MDate Time Provider Department01/04/17 9:00 AM TANISHA VAZQUEZ [facility] During your visit today, we recorded the following information about you: Temperature Pulse Blood pressure Weight 98.2 degrees 59/minute 172/93 98 Karina Vazquez MD 01/04/2017 9:00 AM Leonidrakanjonathon Traore Jamia is a 61 year old [...] 3V AP/LAT/OBL LTBAILEY Iqbalefhari Provider: TANISHA VAZQUEZ [[id number]]Allergies As of Date: 01/04/2017 Noted Allergy ReactionBACTRIM (SULFAMETHOXAZOLE-TRIMETH *12/15/2014 2 - RashDate Reviewed: 01/04/2017Reviewed by: Bebe Cunningham Ma - Fully AssessedReason for Visit: Acute Visit [896] Cmt: swollen toe x 2 weeksReason For Visit History RecordedPrimary Visit Diagnosis:Great toe pain, left [M79.675]Order(s):XR TOE AP/LAT/OBL LT [[id number]] Order #: [id number] FUTURE XR FOOT GENERAL 3V AP/LAT/OBL LT [[id number]] Order #: [id number] FUTUREPrescriptions as of 01/04/2017 Sig: METOPROLOL SUCCINATE [...] meals. Disc: Course of therapy completedEncounter Number: [id number] Status:Closed by TANISHA VAZQUEZ MD on 01/04/17 [facility] Telephone ([facility]) JAMIANATHANIEL AM ([id number]) 1955 MDate Time Provider Department01/04/17 TANISHA VAZQUEZ [facility] During your visit today, we recorded the following information about you:Tanisha Vazquez MD 01/04/2017 3:01 PM SignedPatient called to discuss results.ANDquot;Subacute mildly impacted fracture 1st proximal phalanx with extensioninto the 1st IP jointANDquot;Start wearing boot, follow-up with ortho as referred.Allergies As of Date: 01/04/2017 Noted Allergy ReactionBACTRIM (SULFAMETHOXAZOLE-TRIMETH *12/15/2014 2 - RashDate Reviewed: 01/04/2017Reviewed by: Bbee Cunningham Ma - Fully AssessedReason for Visit: Results [95]Primary Visit Diagnosis:Closed nondisplaced fracture of proximal phalanx of left great toe, initial encounter [S92.415A]Order(s):CONSUL T TO ORTHOPAEDIC SURGERY [[id number]] Order #: [id number]: 1Prescriptions as of 01/04/2017 Sig: METOPROLOL SUCCINATE [...] by TANISHA VAZQUEZ MD on 01/04/17 [facility] PROGRESSon 01-04-2017 PROGRESS HNO ID: [id number] thor: Jaclyn Lowe (Lisa) Ej: (none)Author Type: TechnicianType: Progress NotesFiled: 01/04/2017 9:36 AMNote Text: Radiology Service Progress NotePATIENT NAME: Charles AyalagMRN: [id number] OF SERVICE: January 04, 2017TIME: 9:36 AMPATIENT IDENTITY VERIFICATION COMPLETED USING TWO (2) METHODS: Patientconfirmed name verbally and Date of .PATIENT GENDER DATA: MalePATIENT RELEVANT IMPLANT DATA REVIEWED: Not ApplicableRADIOLOGY DEPARTMENT: General X-ray: Exam(s) Completed: Lower ExtremityX-Ray(s): Foot, Left and Wt. Bearing and Toes, Left:PERIPHERAL IV DATA: Not applicableSIGNED BY: Jaclyn Diaz, RRTSept2016 9:36 AM [facility] PROGRESS HNO ID: [id number] thor: Tanisha Horne: (none)Author Type: PhysicianType: Progress [...] allergiesREVIEW OF SYSTEMS:As noted in HPIPHYSICAL EXAMINATION: [id number]: 172/93BP Site: Left ArmBP Position: SittingBP Cuff [...] GENERAL 3V AP/LAT/OBL LTTanisha Vazquez MD [facility] XR FOOT 3V AP/LAT/OBL LTon 0 [...] phalanx with extension into the 1st IP joint.Acid Tank Cleaner: SRINI Transcribe Date/Time: Jan 04 2017 10:28ADictated by : MALORIE NICHOLS MDThis examination was interpreted and the report reviewed and electronically signed by: MALORIE NICHOLS MD on Jan 04 2017 2:47PM [id number] [facility] XR TOE 3V AP/LAT/OBL LTon XR [...] phalanx with extension into the 1st IP joint.Acid Tank Cleaner: PSCB Transcribe Date/Time: Jan 04 2017 10:28ADictated by : MALORIE NICHOLS MDThis examination was interpreted and the report reviewed and electronically signed by: MALORIE NICHOLS MD on Jan 04 2017 2:47PM [id number] [facility] 12-11-2016 [facility] Telephone ([facility]) NATHANIEL BLANDON AM ([id number]) 1955 MDate Time Provider Department12/11/16 COY BLANCHARD [facility] During your visit today, we recorded [...] Status:Closed by COY BLANCHARD MD on 12/12/16 [facility] Office Visit ([facility]) NATHANIEL BLANDON AM ([id number]) 1955 [facility] Time Provider Department12/10/16 9:30 AM COY BLANCHARD [facility] During your visit today, we recorded the following information about you: Temperature Pulse Blood pressure Weight 98.5 degrees 88/minute 158/92 95.7 kgCoy Blanchard MD, MD 12/10/2016 9:59 AM Leonidrakanjonathon Blandon is a 61 year old male [...] ?F) (Oral) Wt 95.7 kg (211 lb) OmA693% BMI 30.71 kg/m2BMI 30.71 kg/(m2)General: alert and [...] MG TABLET- URIC ACID BLOODMattjose juan Blanchard MDNav[facility] Hospital [facility] 12/10/2016 9:58 AM SignedPhlebotomy was performed per [...] 1 URIC ACID BLOOD [SQURIC] Order #: [id number] as of 12/10/2016 Sig: METOPROLOL SUCCINATE ER [...] of colonic polyps [Z86.010]Visit Notes:>> Prema Romano [place] Sat Dec 10, 2016 9:57 AM Status: [...] to improve.Follow-up and Disposition History RecordedEncounter Number: [id number] Status:Closed by COY BLANCHARD MD on 12/10/16 [facility] PROGRESSon 12-10-2016 PROGRESS HNO ID: [id number] thor: Coy Blanchard, MDService: (none)Author Type: PhysicianType: Progress NotesFiled: 12/10/2016 9:59 AMNote Text:Charles Blandon is a 61 year old male here complaining of left toe pain.According to the patient, he states [facility]. Last [...] URIC ACID BLOODMattjose juan Blanchard MD [facility] Uric Acidon 12-10-2016 Urate 8.2 mg/dL High 4.0-8.1 [facility] Comment on above: Performed By: #### U ANTHONY ####[facility] [address] [place], [place] [phone] CNOVon 11-01-2016 CNOV Office Visit ([facility]) NATHANIEL BLANDON AM ([id number]) 1955 MDate Time Provider Department11/01/16 9:30 AM ROYCE ARAIZA During your visit today, we recorded the following information about you: Pulse Blood pressure 57/minute 165/82Royce Araiza MD 11/01/2016 2:06 PM SignedDERMATOLOGY CONSULT FOR [facility] DATE: 11/01/2016PRIMARY CARE PHYSICIAN: MORENA Iqbal PROVIDER:Tanisha Vazquez MD[address] [address]Consultation requested for an opinion regarding the evaluation and treatmentof skin cancer. My final impression and recommendations will be communicatedback to the requesting physician by way of the shared medical record or lettervia US mail.SUBJECTIVECHIEF COMPLAINT: BCCHISTORY OF PRESENT ILLNESSBIOPSY INFORMATION:1. Pathology Results: BCC Nodular and Ulcerated of the LEFT TEMPLEReport Number: Inside Pathology [id number] Performed: 08/10/2016Performed By: [facility] ProviderPast Treatment: No Past Treatment Tumor Type: PrimaryPresent For: unknown amount of month(s)Signs ANDamp; Symptoms: Non-healingPAST DERM HISTORY: No History of Skin CancerFAMILY HISTORY: No History of Skin CancerPAST MEDICAL HISTORYDiagnosis Date- Recinos's esophagus- GERD (gastroesophageal reflux disease)- HTN (hypertension)- Hx of colonic polyps- Osteoporosis- Umbilical herniaPAST SURGICAL [id number]: CHOLECYSTECTOMYNo date: COLONOSCOPY Comment: every 3 yearsNo [...] Nose, Chin, Lips, Ears, Periauricular Skin and Lutheran)Pre-op Size: 0.6 cm - 1 cm, (0.7cm [...] and Past Histories independentlygathered by the clinical wind farm support specialist and the remaining scribed noteaccurately describes my personal service to the patient.SIGNATURE: Royce Araiza MD PATIENT NAME: Charles AyalagDATE: November 01, 2016 : 10:20 AM PAGER/CONTACT #:MOHS MICROGRAPHIC OPERATIVE REPORTSERVICE DATE: 11/01/2016SERVICE TIME: 9:10 AMLOCATION:Early Inderjit TraoreCollege Hospital Costa Mesa[address] [address]REFERRING PROVIDER:Tanisha Vazquez MD[address] [facility] [address]ULAQBTERK START TIME: 941PROCEDURE END TIME: URGEON: Dr. [...] Available at Bedside: Inside pathology report # [id number] Size: 0.6 cm - 1 cm, (0.7cm [...] GIVEN WITH VERBAL UNDERSTANDING: YesPATIENT DISCHARGED TO MEDICAL RECORDS RECEPTIONIST/NAME: SelfFOLLOW UP: Return for wound care check in 6 weeksSee Dermatology yearly or as needed for FSE'sPRNThe documentation for this note was completed by Lis Serrano RN acting asscribe for Royce Araiza MD. November 01, 2016 10:29 AM.I agree with the Chief Complaint, ROS, and Past Histories independentlygathered by the clinical wind farm support specialist and the remaining scribed noteaccurately [...] SurgeryDepartment to speak to a Nurse at [phone].After 5 pm, nights, and weekends, please call [phone] or and ask for the dermatology surgery fellow business unit controller.Referring Provider: TANISHA VAZQUEZ [[id number]]Allergies As of Date: 11/01/2016 Noted Allergy ReactionBACTRIM (SULFAMETHOXAZOLE-TRIMETH *12/15/2014 2 - RashDate Reviewed: 11/01/2016Reviewed by: Royce Araiza - Fully AssessedPrimary Visit Diagnosis:Basal cell carcinoma of left zoroastrianism region [C44.319]Prescriptions as of 11/01/2016 Sig: METOPROLOL [...] Department to speak to a Nurse at [phone]. After 5 pm, nights, and weekends, please call [phone] or and ask for the dermatology surgery fellow business unit controller.Disposition: Return in about 6 weeks (around 12/13/2016) for WOUND CHECK.Follow-up and Disposition History RecordedEncounter Number: [id number] Status:Closed by ROYCE ARAIZA MD on 11/01/16 [facility] PROGRESSon 11-01-2016 PROGRESS HNO ID: [id number] thor: Royce Lindoervice: (none)Author Type: PhysicianType: Progress NotesFiled: 11/01/2016 2:06 PMNote Text:DERMATOLOGY CONSULT FOR MOHSSERVICE DATE: 11/01/2016PRIMARY CARE PHYSICIAN: MORENA Iqbal PROVIDER:Tanisha Vazquez MD[address] [facility] [address]Njxdiwifrrpz requested for an opinion regarding the evaluation andtreatment of skin cancer. My final impression and recommendations will becommunicated back to the requesting physician by way of the shared medicalrecord or letter via US mail.SUBJECTIVECHIEF COMPLAINT: BCCHISTORY OF PRESENT ILLNESSBIOPSY INFORMATION:1. Pathology Results: BCC Nodular and Ulcerated of the LEFT TEMPLEReport Number: Inside Pathology [id number] Performed: 08/10/2016Performed By: [facility] ProviderPast Treatment: No Past Treatment Tumor Type: PrimaryPresent For: unknown amount of month(s)Signs AND Symptoms: Non-healingPAST DERM HISTORY: No History of Skin CancerFAMILY HISTORY: No History of Skin CancerPAST MEDICAL HISTORYDiagnosis Date- Recinos's esophagus- GERD (gastroesophageal reflux disease)- HTN (hypertension)- Hx of colonic polyps- Osteoporosis- Umbilical herniaPAST SURGICAL [id number]: CHOLECYSTECTOMYNo date: COLONOSCOPY Comment: every 3 yearsNo [...] Eyebrows, Nose, Chin, Lips, Ears, Periauricular Skinand Lutheran)Pre-op Size: 0.6 cm - 1 cm, (0.7cm [...] and Past Histories independentlygathered by the clinical wind farm support specialist and the remaining scribed noteaccurately describes my personal service to the patient.SIGNATURE: Royce Araiza MD PATIENT NAME: Charles AyalagDATE: November 01, 2016 : 10:20 AM PAGER/CONTACT #:MOHS MICROGRAPHIC OPERATIVE REPORTSERVICE DATE: 11/01/2016SERVICE TIME: 9:10 AMLOCATION:Celine TraoreCollege Hospital Costa [facility]a[address] [place], [place] [address]SEJHSNVCH PROVIDER:Tanisha Vazquez MD[address] [facility] [address]RPHPBHCNG START TIME: 941PROCEDURE END TIME: URGEON: Dr. [...] Available at Bedside: Inside pathology report # [id number] Size: 0.6 cm - 1 cm, (0.7cm X 0.8cm)Lymphadenopathy: NoneIndication for Mohs: Anatomic Location where lesion is prone to recur,Type of tumor, Age of patient and Ill-defined bordersLocation: Area H: (Mask Areas of the Face - Includes Central Face,Eyelids, Inner/Outer [place], Eyebrows, Nose, Chin, Lips, Ears,Periauricular Skin and Lutheran)Preparation: Povidone-iodineLAYER AThe patient was positioned, prepped with [...] GIVEN WITH VERBAL UNDERSTANDING: YesPATIENT DISCHARGED TO MEDICAL RECORDS RECEPTIONIST/NAME: SelfFOLLOW UP: Return for wound care check in 6 weeksSee Dermatology yearly or as needed for FSE'sPRNThe documentation for this note was completed by Lis Serrano RN acting asscribe for Royce Araiza MD. November 01, 2016 10:29 AM.I agree with the Chief Complaint, ROS, and Past Histories independentlygathered by the clinical wind farm support specialist and the remaining scribed noteaccurately describes my personal service to the patient.SIGNATURE: Royce Araiza MD PATIENT NAME: Charles AyalagDATE: November 01, 2016 : 9:10 AM PAGER/CONTACT #: Sam[facility] CNNURSEsona 10-17-2016 [facility] Nurse Visit ([facility]) JAMIANATHANIEL Stafford AM ([id number]) 1955 MDate Time Provider Department10/17/16 7:00 AM [facility] During your visit today, we recorded the following information about you:Constance Mancuso [employer] 10/17/2016 1:46 PM SignedPhlebotomy was performed per the order of Tanisha Vazquez M.D.., accessing leftantecubital vein.Needle removed intact. Dressing secured with tape.Patient denies discomfort, dizziness, light-headedness, or weakness and leftthe office ambulatory..Referring Provider: TANISHA VAZQUEZ [[id number]]Allergies As of Date: 10/17/2016 Noted Allergy ReactionBACTRIM (SULFAMETHOXAZOLE-TRIMETH *12/15/2014 2 - RashDate Reviewed: 08/10/2016Reviewed by: Bebe Cunningham Ma - Fully AssessedVisit Diagnoses:Abnormal LFTs [R79.89] Elevated fasting blood sugar [R73.01]Order(s):COMP METABOLIC PANEL [SQCMP] Order #: [id number] HGB A1C [YRXWU2J] Order #: [id number] as of 10/17/2016 Sig: METOPROLOL SUCCINATE ER [...] of colonic polyps [Z86.010]Visit Notes:>> Constance Mancuso [employer] MonOct 17, 2016 1:42 PM Status: SignedPhlebotomy was performed per the order of Tanisha Vazquez M.D.., accessingleft antecubital vein.Needle removed intact. Dressing secured with tape.Patient denies discomfort, dizziness, light-headedness, or weakness andleft the office ambulatory.. Status:Closed by CONSTANCE DE LA ROSA on 10/17/16 [facility] Comp Metabolic Panelon 10-17 Alanine aminotransferase (ALT) 38 U/L Normal 10-54 [facility] Comment on above: Performed By: #### C MP, HBA1C ####[address] [phone] Albumin 4.1 g/dL Normal 3.9-4.9 [facility] Comment on above: Performed By: #### C MP, HBA1C ####[facility] [place], [place] [phone] Alkaline phosphatase (ALP) 54 U/L Normal 36-108 [facility] Comment on above: Performed By: #### C MP, HBA1C ####[address] [place], [place] [phone] Anion gap 20 mmol/L High 9-18 [facility] Comment on above: Performed By: #### C MP, HBA1C ####[address] [phone] Aspartate aminotransferase (AST) 43 U/L High 14-40 [facility] Comment on above: Performed By: #### C MP, HBA1C ####[place] [address] [address] [phone] Bilirubin (total) 0.3 mg/dL Normal 0.2-1.3 [facility] Comment on above: Performed By: #### C MP, HBA1C ####[place] [address] [address] [phone] Calcium 9.5 mg/dL Normal 8.5-10.2 [facility] Comment on above: Performed By: #### C MP, HBA1C ####[place] [address] [address] [phone] Chloride 101 mmol/L Normal 97-105 [facility] Comment on above: Performed By: #### C MP, HBA1C ####[place] [address] [address] [phone] CO2 23 mmol/L Normal 22-30 [facility] Comment on above: Performed By: #### C MP, HBA1C ####[place] [address] [address] [phone] Creatinine 1.02 mg/dL Normal 0.73-1.22 [facility] Comment on above: Performed By: #### C MP, HBA1C ####[place] [address] [address] [phone] eGFR (non-black) mL/min/{1.73_m2} Normal [facility] Comment on above: Performed By: #### C MP, HBA1C ####[place] [address] [address] [phone] Result Comment: eGFR (Estimated GFR) Units of [...] Glucose mass conc 90 mg/dL Normal 74-99 [facility] Comment on above: Result Comment: The English Diabetes Association (ADA) provides guidance for cutoff [...] Standards of Medical Care in Diabetes 2016, English Diabetes Association. Diabetes Care. 2016.39(Suppl 1). Performed By: #### C MP, HBA1C ####[facility] [address] [place] [phone] Potassium molar conc 4.6 mmol/L Normal 3.7-5.1 [facility] Comment on above: Performed By: #### C MP, HBA1C ####[facility] [address]CW[address], [place] [phone] Protein 7.1 g/dL Normal 6.3-8.0 [facility] Comment on above: Performed By: #### C MP, HBA1C ####[facility] [address]CW[address], [place] [phone] Sodium 144 mmol/L Normal 136-144 [facility] Comment on above: Performed By: #### C MP, HBA1C ####[facility] [address], [place] [phone] Urea nitrogen 18 mg/dL Normal 9-24 [facility] Comment on above: Performed By: #### C MP, HBA1C ####[facility] [place], [place] [phone] Hemoglobin A1con 10-17-2016 Glucose mass conc 120 mg/dL Normal [facility] Comment on above: Result Comment: eAG: (Estimated average glucose) is a calculated value from HgbA1c and is solar manufacturer's representative of the average blood glucose level in the last 2-3 month period. Performed By: #### C MP, HBA1C ####[address] [place], [place] [phone] Hemoglobin A1c/Hemoglobin.total mass fraction (Bld) 5.8 % High 4.3-5.6 [facility] Comment on above: Result Comment: Amer ican Diabetes Association guidelines indicate that patients with HgbA1c in the range 5.7-6.4% are at increased risk for development of diabetes, and intervention by lifestyle modification may be beneficial. HgbA1c greater or equal to 6.5% is considered diagnostic of diabetes. Performed By: #### C MP, HBA1C ####[facility] [place], [place] [phone] Vital Signs Date Time Vital Sign Value Performing Clinician Facility 07-05-2023 08:58-0400 Body weight 94.85 kg II Rusty Delgado Work Phone: [facility] 07-05-2023 08:58-0400 Diastolic blood pressure 71 mm[Hg] II Rusty Delgado Work Phone: [facility] 07-05-2023 08:58-0400 Heart rate 88 /min II Rustyra Delgado Work Phone: [facility] 07-05-2023 08:58-0400 Systolic blood pressure 121 mm[Hg] II Rusty Delgado Work Phone: [facility] 06-13-2023 17:15-0500 Diastolic blood pressure 62 mm[Hg] II Rusty Delgado Work Phone: [facility] 06-13-2023 17:15-0500 Heart rate 72 /min II Rusty Delgado Work Phone: [facility] 06-13-2023 17:15-0500 Respiratory rate 20 /min II Rusty Delgado Work Phone: [facility] 06-13-2023 17:15-0500 SaO2% (BldA) [Mass fraction] 94 % II Rusty Delgado Work Phone: [facility] 06-13-2023 17:15-0500 Systolic blood pressure 101 mm[Hg] II Rusty Delgado Work Phone: [facility] 06-13-2023 13:38-0500 Body height 175.26 cm II Rusty Delgado Work Phone: [facility] 06-13-2023 13:38-0500 Body mass index (BMI) [Ratio] 31.1 kg/m2 II Rusty Delgado Work Phone: [facility] 06-13-2023 13:38-0500 Body weight 95.7 kg II Rusty Delgado Work Phone: [facility] 06-13-2023 12:05-0500 Body temperature 98.2 [degF] II Rusty Delgado Work Phone: [facility] 05-31-2023 15:07-0500 Body height 175.3 cm Janneth Itzkowitz DO Work Phone: [facility] 05-31-2023 15:07-0500 Body mass index (BMI) [Ratio] 32.05 kg/m2 Janneth Itzkowitz DO Work Phone: [facility] 05-31-2023 15:07-0500 Body weight 98.43 kg Janneth Itzkowitz DO Work Phone: [facility] 05-31-2023 15:07-0500 Diastolic blood pressure 72 mm[Hg] Janneth Itzkowitz DO Work Phone: [facility] 05-31-2023 15:07-0500 Systolic blood pressure 120 mm[Hg] Janneth Itzkowitz DO Work Phone: [facility] 05-23-2023 06:44-0500 Body height 175.26 cm II Rusty Delgado Work Phone: [facility] 05-23-2023 06:44-0500 Body weight 99.79 kg II Rusty Delgado Work Phone: [facility] 05-18-2023 14:04-0500 Body height 175.3 cm Janneth Itzkowitz DO Work Phone: [facility] 05-18-2023 14:04-0500 Body mass index (BMI) [Ratio] 32.78 kg/m2 Janneth Itzkowitz DO Work Phone: [facility] 05-18-2023 14:04-0500 Body weight 100.7 kg Janneth Itzkowitz DO Work Phone: [facility] 05-18-2023 14:04-0500 Diastolic blood pressure 74 mm[Hg] Janneth Itzkowitz DO Work Phone: [facility] 05-18-2023 14:04-0500 Systolic blood pressure 120 mm[Hg] Janneth Itzkowitz DO Work Phone: [facility] 04-12-2023 11:00-0500 Body height 175.26 cm Lorna Ortega Other [facility] 04-12-2023 11:00-0500 Body mass index (BMI) [Ratio] 33.22 kg/m2 Lorna Ortega Other [facility] Other 04-12-2023 11:00-0500 Body weight 102.06 kg Lorna Ortega Other [facility] Other 04-12-2023 11:00-0500 Body weight 102.05 kg II Rusty Delgado Work Phone: [facility] 04-12-2023 11:00-0500 Diastolic blood pressure 67 mm[Hg] Lorna Scovanner Other [facility] 04-12-2023 11:00-0500 Systolic blood pressure 135 mm[Hg] Lorna Scovanner Other [facility] 11-10-2022 11:00-0400 Body weight 99.79 kg Lorna Scovanner Other [facility] Other 11-10-2022 11:00-0400 Diastolic blood pressure 74 mm[Hg] Lorna Scovanner Other [facility] Other 11-10-2022 11:00-0400 Systolic blood pressure 127 mm[Hg] Lorna Scovanner Other [facility] Other 09-21-2022 08:49-0400 Diastolic blood pressure 78 mm[Hg] II Rusty Delgado Work Phone: [facility] 09-21-2022 08:49-0400 Heart rate 50 /min II Rusty Delgado Work Phone: [facility] 09-21-2022 08:49-0400 SaO2% (BldA) [Mass fraction] 99 % II Rusty Delgado Work Phone: [facility] 09-21-2022 08:49-0400 Systolic blood pressure 125 mm[Hg] II Rusty Delgado Work Phone: [facility] 09-21-2022 07:36-0400 Body height 175.26 cm II Rusty Delgado Work Phone: [facility] 09-21-2022 07:36-0400 Body temperature 98.5 [degF] II Rusty Delgado Work Phone: [facility] 09-21-2022 07:36-0400 Body weight 95.25 kg II Rusty Delgado Work Phone: [facility] 09-21-2022 07:36-0400 Respiratory rate 16 /min II Rusty Delgado Work Phone: [facility] Encounters Encounter Date Encounter Type Care Provider Facility Start: 01-18-2024 End: 01-18-2024 ambulatory IRA WALKER Not Available Start: 01-03-2024 End: 01-03-2024 ambulatory II Rusty Delgado Work Phone: [facility] Work Phone: Start: 01-03-2024 End: 01-03-2024 Departed Referred II Rusty Delgado Work Phone: [facility] Start: 12-27-2023 ambulatory [facility] Start: 12-27-2023 End: 12-27-2023 ambulatory [facility] Start: 12-13-2023 End: 12-13-2023 ambulatory FABY ECHEVARRIA Not Available Start: 12-12-2023 End: 12-12-2023 ambulatory II Rusty Delgado Work Phone: [facility] Work Phone: Start: 12-12-2023 End: 12-12-2023 Departed Referred II Rusty Delgado Work Phone: [facility] Start: 12-08-2023 End: 12-08-2023 ambulatory II Rusty Delgado Work Phone: [facility] Work Phone: Start: 12-08-2023 End: 12-08-2023 Departed Referred II Rusty Delgado Work Phone: [facility] Start: 12-07-2023 Non-patient / Non-visit II Rusty Delgado Work Phone[facility] Work Phone: Start: 12-07-2023 End: 12-07-2023 ambulatory II Rusty Delgado Work Phone: [facility] Work Phone: Start: 12-07-2023 End: 12-07-2023 Departed Referred II Rusty Delgado Work Phone: [facility] Start: 11-27-2023 End: 11-27[facility]20[facility] Start: 11-15-2023 End: 11-15-2023 ambulatory RUSTY DELGADO Not Available Start: 11-14-2023 End: 11-14-2023 ambulatory [facility] Start: 11-08-2023 End: 11-08-2023 ambulatory ROSALINO CYDNEY Not Available Start: 10-13-2023 ambulatory GENER[facility] Start: 10-13-2023 End: 10-13-2023 [facility] Start: 10-09-2023 End: 10-09-2023 ambulatory JANNETHRENEE VILLEGAS Not Available Start: 10-03-2023 End: 10-03-2023 ambulatory II Rusty Delgado Work Phone: [facility] Work Phone: Start: 10-03-2023 End: 10-03-2023 Departed Referred II Rusty Delgado Work Phone: [facility] Start: 10-02-2023 End: 10-02-2023 ambulatory LYNDSEY PATEL Not Available Start: 09-25-2023 End: 09-25-2023 ambulatory [facility] Start: 09-15-2023 End: 09-15-2023 ambulatory WARD BENEDICT Not Available Start: 09-05-2023 End: 09-05-2023 ambulatory WARD BENEDICT Not Available Start: 08-30-2023 End: 08-30-2023 ambulatory WARD BENEDICT Not Available Start: 08-22-2023 End: 08-22-2023 ambulatory [facility] Start: 08-07-2023 End: 08-07-2023 ambulatory ARIAS JESUS [facility] Start: 07-18-2023 End: 07-18-2023 ambulatory FABY Syed WALE Not Available Start: 07-12-2023 End: 07-13-2023 ambulatory Janneth H Itzkowitz Facility:[facility] Start: 07-12-2023 End: 07-12-2023 Patient encounter procedure Jourdan ARRIAZA [facility] Start: 07-05-2023 End: 07-05-2023 ambulatory II Rusty Delgado Work Phone: [facility] Work Phone: Start: 07-05-2023 End: 07-05-2023 Patient encounter procedure II Rusty Delgado Work Phone: [facility] Work Phone: Start: 06-29-2023 End: 06-29-2023 ambulatory JANNETH H ITZKOWITZ Not Available Start: 06-23-2023 ambulatory Janneth Itzkowitz Facil ity:[facility] Start: 06-22-2023 End: 06-22-2023 ambulatory JANNETH H ITZKOWITZ Not Available Start: 06-13-2023 End: 06-13-2023 Admission to same day surgery center II Rusty Delgado Work Phone: [facility] [place] Start: 06-13-2023 End: 06-13-2023 ambulatory Janneth Itzkowitz Facility:[facility] Start: 06-02-2023 End: 06-02-2023 Patient encounter procedure II Rusty Delgado Work Phone: [facility]Pre-Surgical Testing Work Phone: Start: 06-02-2023 End: 06-02-2023 ambulatory II Rusty Delgado Work Phone: [facility] Work Phone: Start: 05-31-2023 End: 05-31-2023 Office outpatient visit 25 minutes Janneth H Itzkowitz DO Work Phone: [facility] Comment on above: Fissure in ano (Prim chinmay Dx) Start: 05-31-2023 End: 05-31-2023 ambulatory JANNETH H ITZKOWITZ Not Available Start: 05-23-2023 End: 05-23-2023 Admission to same day surgery center II Rusty Delgado Work Phone: [facility] Work Phone: Start: 05-23-2023 End: 05-23-2023 ambulatory Rusty Delgado Facility:[facility] Start: 05-18-2023 End: 05-18-2023 Office outpatient new 45 minutes Janneth H Itzkowitz DO Work Phone: [facility] Comment on above: Fissure in ano Start: 05-18-2023 End: 05-18-2023 ambulatory JANNETH H ITZKOWITZ Not Available Start: 05-11-2023 End: 05-11-2023 ambulatory Lorna Ortega Other [employer] Other Start: 05-11-2023 Office outpatient visit 15 minutes Lorna Ortega [facility] Start: 04-28-2023 End: 04-28-2023 ambulatory Lorna Ortega Other [employer] Other Start: 04-28-2023 Telephone encounter Lorna Coates [facility] Start: 04-27-2023 End: 04-27-2023 ambulatory Lorna Ortega Other [employer] Other Start: 04-27-2023 Telephone encounter Lorna Coates [facility] Start: 04-26-2023 End: 04-26-2023 Patient encounter procedure II Rusty Delgado Work Phone: [facility]Nuc [facility] Work Phone: Start: 04-26-2023 End: 04-26-2023 ambulatory Rusty Delgado Facility:[facility] Start: 04-13-2023 End: 04-13-2023 ambulatory Lorna Ortega Other [employer] Other Start: 04-13-2023 Telephone encounter Lorna Coates [facility] Start: 04-12-2023 Office outpatient visit 25 minutes Lorna Ortega [facility] Start: 04-12-2023 Telephone encounter Lorna Coates [facility] Start: 04-12-2023 End: 04-12-2023 Patient encounter procedure II Rusty Delgado Work Phone: [facility] Work Phone: Start: 04-12-2023 End: 04-12-2023 ambulatory II Rusty Delgado Work Phone: [facility] Other Start: 04-12-2023 End: 04-12-2023 Patient encounter procedure II Rusty Delgado Work Phone: [facility] Work Phone: Start: 04-03-2023 End: 04-03-2023 ambulatory Lorna Ortega Other [facility] Other Start: 04-03-2023 Telephone encounter Lorna Coates [facility] Start: 03-30-2023 End: 03-30-2023 ambulatory RUSTY DELGADO Not Available Start: 03-24-2023 End: 03-24-2023 ambulatory RUSTY DELGADO Not Available Start: 03-24-2023 End: 03-24-2023 ambulatory RUSTY DELGADO Not Available Start: 11-18-2022 End: 11-18-2022 ambulatory Lorna Ortega Other [facility] Other Start: 11-18-2022 Telephone encounter Lorna Coates [facility] Start: 11-15-2022 End: 11-15-2022 ambulatory II Rusty Delgado Work Phone: [facility] Work Phone: Start: 11-15-2022 End: 11-15-2022 Patient encounter procedure II Rusty Delgado Work Phone: [facility] [place] Work Phone: Start: 11-10-2022 End: 11-10-2022 ambulatory Lorna Ortega Other [facility] Other Start: 11-10-2022 Office outpatient visit 15 minutes Lorna JENKINS [facility] Start: 11-03-2022 End: 11-03-2022 Patient encounter procedure II Rusty Delgado Work Phone: [facility] Work Phone: Start: 10-26-2022 End: 10-26-2022 ambulatory II Rusty Delgado Work Phone: [facility] Work Phone: Start: 10-26-2022 End: 10-26-2022 Departed Referred II Rusty Delgado Work Phone: [facility] Work Phone: Start: 10-26-2022 End: 10-26-2022 Patient encounter procedure II Rusty Delgado Work Phone: [facility] Work Phone: Start: 09-21-2022 End: 09-21-2022 Admission to same day surgery center II Rusty Delgado Work Phone: [facility] Work Phone: Start: 09-21-2022 End: 09-21-2022 ambulatory II Rusty Delgado Work Phone: [facility] Work Phone: Start: 02-13-2017 End: 02-13-2017 Ambulatory TANISHA VAZQUEZ [facility] Start: 01-04-2017 End: 01-04-2017 Ambulatory TANISHA VAZQUEZ [facility] Start: 12-10-2016 End: 12-10-2016 Ambulatory COY BLANCHARD [facility] Start: 11-01-2016 End: 11-02-2016 Ambulatory ROYCE ARAIZA [facility] Start: 10-17-2016 End: 10-17-2016 Ambulatory TANISHA CHEMA [facility] Procedures Date Procedure Procedure Detail Performing Clinician [...] screening for protein Diabetes: Urine Protein Screening [facility] Start: 05-24-2024 Glaucoma screening Diabetes: Retinopathy Screening [facility] Start: 08-24-2023 Hemoglobin A1c measurement Diabetes: Hemoglobin A1C [facility] Start: 06-13-2023 [facility] Start: 06-13-2023 [facility] Start: 06-13-2023 End: 06-13-2023 Patient encounter procedure 06/13/2023 1:30 PM EST Procedure Visit [facility] Janneth Barrientos DO [address] [id number] [facility] Start: 06-09-2023 End: 06-09-2023 Patient encounter procedure 06/09/2023 10:30 AM EST Office Visit [facility] [address] [facility] [address] [place] [id number] Janneth Villegas, [address] [facility] [address] [place] [address] [address] [facility] Start: 05-26-2023 Medicare Annual Wellness (AWV) Medicare Annual Wellness (AWV) [facility] Start: 05-23-2023 [facility] Start: 02-23-2023 Hemoglobin A1c measurement Diabetes: Hemoglobin A1C [facility] Start: 11-03-2022 [facility] Start: 11-03-2022 Ultrasound elastography of liver DH Fibroscan (Not Applicable) [facility] Start: 10-26-2022 Ultrasound elastography of liver DH Fibroscan (Not Applicable) [facility] Start: 10-26-2022 [facility] Start: 09-21-2022 Hepatitis B core antibody measurement [facility] Start: 09-21-2022 End: 09-21-2022 [facility] Start: 1974 Urine screening for protein Diabetes: Urine Protein Screening [facility] Start: 08-03-1959 Pneumococcal Vaccine: 65+ Years (1 - PCV) Pneumococcal Vaccine: 65+ Years (1 - PCV) [facility] Start: 1955 Medicare Annual Wellness (AWV) Medicare Annual Wellness (AWV) [facility] Start: 1955 Screening for malignant neoplasm of colon [facility] Actin smooth muscle IgG Ab [Units/volume] in Serum [facility] Alpha 1 antitrypsin [Mass/volume] in Serum or Plasma [facility] Alpha 1 antitrypsin phenotyping [Identifier] in Serum or Plasma by Immunofixation [facility] Cefuroxime free [Mass/volume] in Serum or Plasma [facility] Ceruloplasmin [Mass/volume] in Serum or Plasma [facility] Hepatitis B virus galindo rface Ab [Presence] in Serum [facility] Hepatitis B virus galindo rface Ag [Presence] in Serum or Plasma by Immunoassay [facility] Hepatitis C virus Ig G Ab [Presence] in Serum or Plasma by Immunoassay [facility] Mitochondria M2 IgG Ab [Units/volume] in Serum [facility] Patient referral [facility] Work Phone: Immunizations Immunization Date Immunization Notes Care Provider Fa [facility] 01-24-2023 influenza virus vaccine, unspecified formulation Jourdan ARRIAZA [facility] 04-30-2022 zoster vaccine recombinant Janneth Itzkowitz DO Work Phone: [facility] 03-22-2022 tetanus toxoid, reduced diphtheria toxoid, and acellular pertussis vaccine, adsorbed Janneth Itzkowitz DO Work Phone: [facility] 02-01-2022 influenza virus vaccine, unspecified formulation Jourdan [employer] [facility] 02-01-2022 influenza, high dose seasonal, preservative-free Janneth Itzkowitz DO Work Phone: [facility] 02-17-2021 influenza virus vaccine, unspecified formulation ODEC [facility] 02-17-2021 influenza, high dose seasonal, preservative-free Janneth Itzkowitz DO Work Phone: [facility] 02-13-2017 influenza virus vaccine, unspecified formulation Jourdan [employer] [facility] 02-13-2017 influenza, injectabl e, quadrivalent, contains preservative Janneth Itzkowitz DO Work Phone: [facility] 02-01-2016 influenza virus vaccine, unspecified formulation [employer]DEC [facility] 02-01-2016 influenza, seasonal, injectable Janneth Itzkowitz DO Work Phone: [facility] 03-24-2015 zoster vaccine, live Janneth Itzkowitz DO Work Phone: [facility] 02-10-2015 influenza virus vaccine, unspecified formulation Jourdanharsh ARRIAZA [facility] 02-10-2015 influenza, seasonal, injectable Janneth Itzkowitz DO Work Phone: [facility] 01-14-2014 influenza virus vaccine, unspecified formulation Jourdanharsh ARRIAZA [facility] 01-14-2014 influenza, seasonal, injectable Janneth Itzkowitz DO Work Phone: [facility] 01-23-2013 influenza virus vaccine, unspecified formulation Janneth Itzkowitz DO Work Phone: [facility] Payers Date Payer Category Payer Self-pay 2022 Medicare [employer] MEDICARE A DVANTAGE A[employer] MEDICARE REPLACEMENT [id number] 2022-Present [address] [place] [address] [id number] 2002 Private Health Insurance [id number] 1953 Unknown [id number] 2.16.840.1.015591.3.579.2. 727 1953 Unknown [id number] 2.16.840.1.196867.3.579.2. 1259 1953 Unknown [id number] 2.16.840.1.056923.3.579.2. 1259 1953 Unknown [id number] 2.16.840.1.890969.3.579.2. 1259 1953 Unknown [id number] 2.16.840.1.552473.3.579.2. 1258 1953 Unknown [id number] 2.16.840.1.591687.3.579.2. 1258 1953 Unknown [id number] 2.16.840.1.444096.3.579.2. 1258 1953 Unknown [id number] 2.16.840.1.343038.3.579.2. 1258 1953 Unknown [id number] 2.16.840.1.917567.3.579.2. 1258 1953 Unknown [id number] 2..840.1.959170.3.579.2. 1258 1953 Unknown [id number] 2.16.840.1.307891.3.579.2. 1258 1953 Unknown [id number] 2..840.1.971173.3.579.2. 1258 1953 Unknown [id number] 2..840.1.482468.3.579.2. 1258 1953 Unknown [id number] 2.16.840.1.231709.3.579.2. 1258 1953 Unknown [id number] 2.16.840.1.387786.3.579.2. 1258 1953 Unknown [id number] 2.16.840.1.739561.3.579.2. 1258 1953 Unknown [id number] 2.16.840.1.395653.3.579.2. 1258 1953 Unknown [id number] 2.16.840.1.130502.3.579.2. 1259 Unknown [id number] 2.16.840.1.039173.3.579.2. 531 Unknown [id number] 2.16.840.1.567566.3.579.2. 531 Unknown [id number] 2.16.840.1.426221.3.579.2. 531 Unknown [id number] 2.16.840.1.501377.3.579.2. 531 Unknown [id number] 2.16.840.1.047052.3.579.2. 531 Unknown [id number] 2.16.840.1.133029.3.579.2. 531 Unknown [id number] 2.16.840.1.070106.3.579.2. 531 Unknown [id number] 2.16.840.1.775782.3.579.2. 531 Unknown [id number] 2.16.840.1.209453.3.579.2. 531 Social History Date Type Detail Facility Start: 09-21-2022 End: 06-13-2023 Tobacco smoking status NHIS Ex-smoker (finding) [facility] Start: 1955 Sex Assigned At Male F [facility] Start: 05-18-2023 End: 05-31-2023 Sex Assigned At [facility] End: 04-17-1989 History of tobacco use Current smoker [facility] End: 04-17-1989 History of tobacco use Cigarette Smoker [facility] Start: 11-17-2022 Tobacco use and exposure Smokeless tobacco non-user [facility] Start: 05-18-2023 End: 05-31-2023 History of [address] [facility] Start: 1955 Sex Assigned At Not on file N [facility] Tobacco smoking status No Smokin g Status Entered [facility] Goals Date Patient Goal Desired Activity /State Clinical Notes 09-21-2022 to 12-29-2023 Janneth Villegas, DO - 05/31/2023 3:15 PM ESTJanneth Vilelgas, DO - 05/18/2023 2:00 PM EST Note [...] as previously instructed, and they acknowledged this. [facility] 12-27-2023 Note Attestation signed by Irena [...] were changed during his recent hospitalization at [facility], therefore, will repeat labs Will change to [...] documentation in this note for specific details. [facility] G[facility] Follow-up visit CHIEF COMPLAINT Chief Complaint [...] patient was recently hospitalized at [facility] for worsening ascites and shortness of breath. She reports that patient has fluid removed via thoracentesis and paracentesis. He has not undergone paracentesis since his hospital stay. She reports that d (more content not included)... [facility] 11-27-2023 Note Patient: Charles hernandez Procedure Summary Date: 11/27/23 Room / Location: [facility] Invasive Surgery [place] Anesthesia Start: 1041 Anesthesia Stop: 1107 Procedure: [...] per anesthesia protocol. No notable events documented. [facility] 11-27-2023 Note Patient: Charles hernandez Procedure Summary Date: 11/27/23 Room / Location: [facility] Anesthesia Start: 1041 Anesthesia Stop: Procedure: EGD Diagnosis: Alcoholic cirrhosis of liver with ascites (CMS/HCC) Scheduled Providers: Irena Johnson MD; lJ Kent MD; VALDEMAR Heath Responsible Provider: Jl Kent MD Anesthesia Type: MAC ASA Status: 3 Anesthesia Post Transport [facility] Patient Monitor: direct observation Transport: uneventful Patient condition is: stable [facility] 11-27-2023 Note Patient: Charles hernandez Procedure Information Date/Time: 11/27/23 1130 Scheduled providers: Irena Johnson MD; Jl Kent MD; VALDEMAR Heath Procedure: EGD Location: [facility] Relevant Problems Cardio Denies chest pain/SOB (+) [...] Plan discussed with CAA. Additional Equipment Requests [facility] 11-08-2023 Note Refills provided [facility] 10-16-2023 Note Emma MALDONADO approved through 04/10/2024, previous approval. Pt has not been on lactulose, prescribed lactulose on the same day as Xifaxan. Based on discussion with annual income for 2 people in the household is $52,000. Should qualify for PAP. Will email provider and pt portions. Carmella Olivo, PharmD, BCACP 10/16/23 1:56 PM [facility] [phone] [facility] 10-16-2023 Note Patient said the [facility] has been scheduled and is on its way. Aware they have to call [facility] every time they need a refill. Have no further questions. Will no longer follow up. Darnell Razo [facility] 10/25/23 10:27 AM [facility] 10-16-2023 Note Patient assistance a pplication approved through [employer]. Approval good through 04/16/2024. Patient Case ID/Approval Number: [id number]. Notified patient and will follow up to confirm shipment/delivery is scheduled. Yamini Camarillo [facility] 10/23/23 10:11 AM [facility] 10-16-2023 Note Have received pt. Po rtion of PAP form still waiting on prescribers portion. Re faxed the forms over to GI. Send PAP forms in once prescribers portion is signed. Darnell Razo [facility] 10/20/23 1:20 PM [facility] 10-13-2023 Note I called and discuss ed the results of his labwork with the patient. With his sodium level being slightly below baseline, we will have him repeat his labs prior to EGD tomorrow. He expressed clear understanding. If he continues to have low sodium, we may need to consider holding diuretics. [facility] 10-13-2023 Note Attestation signed by Irena [...] documentation in this note for specific details. [facility] Follow-up visit CHIEF COMPLAINT Chief Complaint [...] function of stomach (more content not included)... [facility] 09-14-[address] ordered to rule o ut chronic mesenteric ischemia [facility] 08-07-2023 Note Attestation signed by Arias Jesus MD at 08/07/2023 2:45 PM I personally saw the patient with the fellow, I performed/participated in the critical/david portions of the service, I was directly involved in the management and treatment plan of the patient. I discussed the case management with the fellow and agree with the findings and plan as documented by the fellow. [facility] New Patient Visit - History & [...] % gel, Apply topically., Disp: , Rfl: [id number]-[id number]-[id number]-petrol 5-0.25-14.4-15 % cream, APPLY TO AFFECTED AREA [...] Rfl: zolpidem (A (more content not included)... [facility] 05-31-2023 History of Present illness Narrative [...] reflux disease) History of colon polyps Hypertension ([facility]) Social History Tobacco Use Smoking status: Former [...] has been scheduled. documented in this encounter [facility] 05-18-2023 History of Present illness Narrative Images from the original note were not included. Charles Blandon 1955 Charles Blandon is a 67 y.o. male presents with chief complaint of painful hemorrhoid HPI: HPI Huber states he has a hemorrhoid for the last 5-6 weeks. He was seen by Dr. Carroll's CLINICAL RESEARCH MONITOR who referred him to our office. Huber [...] weeks for recheck documented in this encounter [facility] 05-11-2023 Evaluation note Encounter Date Diagnosis Assessment Notes Apr, Nausea (ICD-10 - R11.0) Apr, Cirrhosis of liver (ICD-10 - K74.60) Apr, Early satiety (ICD-10 - R68.81) [facility] Other 12-28-2023 Evaluation note* Encounter Date Diagnosis Assessment Notes Treatment Notes Treatment Clinical Notes Mar, Lower abdominal pain (ICD-10 - R10.30) [facility] Other 12-27-2023 Evaluation note* Encounter Date Diagnosis [...] - R68.81) Mar, Bloating (ICD-10 - R14.0) [facility] Other 07-27-2023 Evaluation note* Encounter Date Diagnosis [...] a time. Pt advised to start probiotic ([employer]) Pt RTO 3 MONTHS [facility] No data available for this section 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 [facility] Diagnosis Onset Date Resolution Status Cirrhosis acute Dyspepsia and disorder of function of stomach acute Emesis acute Esophageal dysmotility acute [facility] Work Phone: History and physical note Author Lex Carroll [facility] September 21, 2022 8:04am Note Date/Time September 21, 2022 8:04a m [facility] [address] [place] [address] Gastroenterology H&P Signed Patient: Charles Blandon MR#: [id number] : 1955 Acct:[id number] Age/Sex: 67 / M Adm Date: 3 Loc: Room: Type: [facility] Attending Dr: Lex Carroll MD Copies [...] MD Documented By: Lex Carroll MD 09/21/22 08 Signed By: <Electronically signed by Lex Carroll MD> 09/21/22 0804 [facility] Work Phone: History general Narrative - Reported* Type Description Date Medical History hypertension Medical History GERD Surgical History gallbladder Surgical History elbow surgery Surgical History mesh placement [facility] Other Hospital Discharge instructions Additional Instructions DISCHARGE [...] problems. -Follow up with PCP. -Office number [phone].[facility] Work Phone: Hospital Discharge instructions No data available for this section [facility] Progress note No data available for this section [facility] Summary Purpose Family History No Family [...] section and content) DATE CREATED AUTHOR 10/10/2017 [facility] DATE CREATED AUTHOR AUTHOR'S ORGANIZ ATION 07/14/2023 [facility] DATE CREATED AUTHOR AUTHOR'S ORGANIZ ATION 01/05/2024 [facility] DATE CREATED AUTHOR AUTHOR'S ORGANIZ ATION 01/18/2024 [facility] DATE CREATED AUTHOR AUTHOR'S ORGANIZ ATION 01/20/2024 [facility] EPIC Care Teams (unrecognized sec tion and content) [...] Active Lorna Ortega APRN Attending Provider Active Shade Bander Relationship Specialty Start Date End Date Rusty Delgado MD [address] [facility] [address] [place] [address] PCP - [employer] 04/17/22 Rusty Delgado MD [address] [facility] [address] [place] [address] PCP - General Internal Medicine 11/23/22 Shade Bander Relationship Specialty Start Date End Date Rusty Delgado MD [address] [facility] [address] [place] [address] PCP - [employer] 04/17/22 Rusty Delgado MD [address] [place] [address] [place] [address] PCP - General Internal Medicine 11/23/22 Team [...] December 08, 2023 End: December 08, 2023 Team Status: Active Member Role Status Rosa Delgado II MD Primary Care Provider Active Start: December 07, 2023 Arias Wang DO Attending Provider Active Sta rt: December 07, 2023 Team Status: Inactive Member Role Status Dates Kin Hernandez MD Attending Provider Active Star t: January 03, 2024 End: January 03, 2024 REASON FOR VISIT (unrecogniz ed section and content) Reason Comments painful hemorrhoid Specialty Diagnoses / Procedures Referred By Contac t Referred To Contact General Surgery Diagnoses Unspecified hemorrhoids Procedures NM OFFICE/OUTPATIENT [facility] MDM 60 MINUTES Lorna Ortega MD [address] [facility] [address] [place] [address] [place] [address] [facility] [address] [place] [address] Referral ID Status Reason Start Date Expiration Date V isits Requested Visits Authorized [id number] Closed Specialty Services Required 05/12/2023 11/08/2023 1 [...] BE BASED ON THE PRIMARY CLINICAL RECORDS. [facility] [employer] provides no warranty or guarantee of the accuracy or completeness of information in this document.
[2024-01-24 12:35] VITALS: BP 125/88; PULSE 76; O2SAT 97
[2024-01-24] MEDS: LIDOCAINE HCL 10 ML, SODIUM BICARBONATE 1 MEQ INJ (12:50)
--- NOTE | 2024-01-24 13:04 | SUR.PREOP ---
Mailed letter with date time, prep, and procedure to patient.
[2024-01-24 13:15] VITALS: BP 110/71
[2024-01-24 13:20] VITALS: BP 104/69
[2024-01-24 13:25] VITALS: BP 112/69
[2024-01-24 13:30] VITALS: BP 110/79
[2024-01-24 13:35] VITALS: BP 104/70
--- NOTE | 2024-01-24 14:50 | PC.NURSE ---
[address] with clear yellow fluid noted. 1340 Total of 4.5 liters removed and pt tolerated well. Removed paracentesis catheter and pressure applied x 5 minutes with hemostasis achieved. Applied vaseline gauze and Lg tegaderm. Pt to MRI for scan as scheduled.
== END 2024-01-24 13:50 | disposition home or self-care (01) ==
LOC: US 12:13
PROVIDERS: Radiology Diagnostic Radiology; PCP Internal Medicine
DX: K70.31 Alcoholic cirrhosis of liver with ascites (principal); J90 Pleural effusion, not elsewhere classified
CPT/HCPCS: 49083; 74183

== ENCOUNTER 2024-01-24 12:16 | Outpatient (OUT) | payer MEDICARE, SELFPAY ==
--- NOTE | 2024-01-24 | MR_ITS ---
[address] [address] Patient Name: LOYD BLANDON MRN: [id number] date: 1955 Sex: M Assigned Patient Location: MRI Current Patient Location: Accession/Order Number: [id number] Exam Date: 01/24/2024 13:50 Report Date: 01/25/2024 06:59 At the request of: NON-STAFF PHYSICIAN Procedure: MR abdomen wo/w con EXAMINATION: MR abdomen wo/w con HISTORY: Alcoholic cirrhosis of liver COMPARISON: CT abdomen pelvis 09/25/2023 TECHNIQUE: A comprehensive MRI examination of the abdomen was performed to optimize visualization of suspected pathology. Images were obtained with and/or without intravenous Dotarem contrast as indicated by exam type. FINDINGS: LIVER: Small heterogeneous liver with nodular margins. Subtle masslike area within posterior right hepatic lobe, 3.9 x 3.7 cm in axial plane seen only on the postcontrast images. No corresponding findings on other sequences or planes. BILIARY: Cholecystectomy. PANCREAS: No lesion, fluid collection, ductal dilatation, or atrophy. SPLEEN: No enlargement or focal lesion. KIDNEYS: No mass or obstruction. ADRENALS: No mass or enlargement. AORTA/VASCULAR: No aneurysm or dissection. RETROPERITONEUM: No mass or adenopathy. BOWEL/MESENTERY: No visible mass, obstruction, or bowel wall thickening. ABDOMINAL WALL: 6.0 cm paraumbilical hernia containing free fluid. BONES: No bony lesion or fracture. LUNG BASES: Large right pleural effusion. OTHER: Minimal residual free fluid/ascites within the abdomen. Patient underwent paracentesis immediately prior to MRI study. MR/MR abdomen wo/w con IMPRESSION: 1. Heterogeneous nodular liver compatible with cirrhosis. The patient will mass like area within posterior right hepatic lobe with likely sequela of nodular cirrhotic changes of the liver and heterogeneous enhancement of the liver. 2. Large right pleural effusion. 3. Periumbilical fluid-filled 6 cm hernia sac. Fluid is likely residual from patient's recent ascites. Electronically authenticated by: WARD FERRER Date: 01/25/2024 06:59
--- OUTSIDE RECORDS SUMMARY | 2024-01-24 12:26 | XMS_ITS | CCD ---
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 Name Role Phone CHEMA, TANISHA Unavailable Unavailable [...] Rusty Delgado MD Primary Care Provider [phone] MD Minh Griffith Attending Provider DO Janneth Villegas Attending Provider JUDITH Delgado Primary Care Provider TALA Ortega Attending Provider MD Minh Griffith Attending Provider DO Janneth Villegas Attending Provider [phone] RUSTY DELGADO Primary Care Physician Janneth Villegas H Referring Unavailable Jourdan ARRIAZA Attending Unavailable JUDITH Delgado Primary Care Provider MD Ward Stern [facility], DO Devyn Attending Provider [facility], DO Devyn Attending Provider JUDITH Delgado Rusty Primary Care Provider [phone] MD Ward Stern Attending Provider [phone] MD Kin Hernandez V Attending Provider Rusty Delgado Primary Care Unavailable Lorna Ortega [...] Attending Unavailable Rusty Delgado Primary Care Unavailable [facility], Devyn Admitting Unavailable [facility] Un[facility] Rusty Delgado Primary Care Unavailable [...] trimethoprim; Translations: [SULFAMETHOXAZOLE-TR IMETHOPRIM] [facility] Medic[facility] Current Medications Medication Drug Class(es) [...] June 13, 2023 July 05, 2023 9:01am kfxeoch-gssnjftuo-cwrq 333-133-5 MG per tablet (1 source) End: 05-18-2023 calcium-magnesium -zinc 333-133-5 MG per tablet Take 1 tablet by mouth in the morning and 1 tablet at noon and 1 tablet in the evening. Take with meals. 0 05/18/2023 Discontinued hydroCHLOROthiazide 25 mg / triamterene 37.5 mg oral capsule (20 sources) Potassium-spari ng Diuretic, Thiazide Diuretic Start: 06-13-2023 End: 07-05-2023 Triamterene-Lanexa chlorothiazid Discontinued CAP June 13, 2023 1:00am [...] 36 [facility] 01-16-2024 Orders Only [id number] Ambrosio Blandon emma 1955 M Date Provider Department Center 01/16/202415520-LZZURGIBSON HAZEL [facility] No family history on file [facility] Orders Onlyon 01-04-2024 Orders Only [id number] Ambrosio Blandon emma 1955 M Date Provider Department Center 01/04/2024 [id number], HISTORICAL GI Medical [facility]avi No family history on file [facility] 36on 01-03-2024 36 Called patient with [...] day prior or the day of MRI. [facility] 36 ----- Message from Rachel Doan MA sent at 01/03/2024 9:53 AM EDT ----- A new document has been added to this order with description [facility] results. [facility] Orders Onlyon 01-03-2024 Orders Only [id number] Ambrosio Blandon emma 1955 M Date Provider Department Center 01/03/2024 [id number], HISTORICAL GI Medical Pavi No family history on file [facility] Telephoneon 01-03-2024 Telephone [id number] Ambrosio Blandon 1955 M Date Provider Department Center 01/03/2024 Chip6-MARITO MAE [facility] GASTRO None No family history on file [facility] 36on 01-01-2024 36 [facility], instructed to take Lasix 60mg daily. expressed understanding. I did instruct her that we would like repeat BMP to assess potassium and Creatinine, Monday or Monday. She is planning to have this done at [facility] on Monday. I did provide the fax number to our clinic for results. She is awaiting scheduling for MRI and Abdominal XR at [place]. [facility] Refillon 12-30-2023 Refill [id number] Jamia,Wil emma 1955 [facility] Provider Department Center 12/30/202308436-CBOHOGIBSON TAYLOR GI Medical Pavi No family history on file Reason for Visit and Comments: Med Refill [[id number]] [facility] 36on 12-29-2023 36 Patient's saucedo d in to say that the lab at [facility] told her insurance doesn't cover the Enteric Bacterial DNA stool and it is $1500, they told her if we sent in an order for a stool culture is would be similar and insurance would cover that. Also the lab doesn't do the fecal fat 24 hours, but will do the fecal fat 72 hours. Please advise. [facility] 36 Patient's carmen ng again for clarification of lasix dosage 60mg daily on the office note, 60mg BID on the prescription. She is concerned about giving him the correct dosage and frequency. [facility] Documentationon 12-29-2023 Documentation [id number] Ambrosio Blandon 1955 [facility] Provider Department Center 12/29/2023 ZAKIYA GRANADOS MP GI Medical Pavi No family history on file [facility] Orders Onlyon 12-29-2023 Orders Only [id number] Ambrosio Blandon 1955 M Date Provider Department Center 12/29/2023 EKATERINA ALMARAZ [facility] LEAH No family history on file [facility] Telephoneon 12-29-2023 Telephone [id number] Ambrosio Blandon 1955 M Date Provider Department Center 12/29/2023 BROOKLYNN ZEPEDA MP GI Medical Pavi No family history on file [facility] 36on 12-28-2023 36 Patient's carmen neil for clarification of Lasix dosage, on discharge plan it is written as 60mg daily, but the pharmacy gave her a bottle of lasix where the sig is written 60mg twice daily. She anxious and wants to make sure she gives him the correct dosage and frequency.Please advise. [facility] Telephoneon 12-28-2023 Telephone [id number] Ambrosio Blandon 1955 M Date [facility] Department Center 12/28/2023 BROOKLYNN ZEPEDA MP GI Medical Pavi No family history on file [facility] 37on 12-27-[address] [facility], please get lab work and stool tests. [...] (same day). This can be done at [place]. Please continue Rifaximin 550mg twice daily, and Lactulose once daily for encephalopathy Schedule a follow up appointment in 3 months. Normal [facility] AFP TUMOR MARKERon ALPHA FETOPROTEIN TUMOR MARKER 3 ng/mL Normal 0-9 [facility] Comment on above: Result Comment: INTE RPRETIVE INFORMATION: Alpha Fetoprotein Tumor Marker The [facility] [place] Access DxI AFP method is used. Results [...] reference intervals for this test in the [facility] Test Directory ([employer]). Performed By: [facility] [address] [place] [address] Validation Leader: Ira Lutz MD, PhD CLIA Number: [id number] Performed By: #### L [id number] #### [facility] (BEAKER) [address] [place] [address] CBCon 12-27-2023 Erythrocyte distribution width (RBC) [Ratio] 15.1 % High 11.5-15.0 [facility] Comment on above: Performed By: #### L [id number] #### [facility] (BEAKER) [address] [place] [address] ERYTHROCYTE MEAN CORPUSCULAR HEMOGLOBIN CONCENTRATION (G/DL) BY AUTOMATED 33.2 g/dL Normal 32.0-35.0 [facility] Comment on above: Performed By: #### L [id number] #### [facility] (BEAKER) [address] [place] [address] Hematocrit (Bld) [Volume fraction] 38.5 % Low 39.0-55.0 [facility] Comment on above: Performed By: #### L [id number] #### [facility] (BEAKER) [address] [place] [address] Hemoglobin (Bld) [Mass/Vol] 12.8 g/dL Low 13.0-17.0 [facility] Comment on above: Performed By: #### L [id number] #### [facility] ([facility]) [address] [place] [address] MCH (RBC) [Entitic mass] 32.8 pg Normal 27.0-33.0 [facility] Comment on above: Performed By: #### L [id number] #### [facility] ([facility]) [address] [place] [address] MCV (RBC) [Entitic vol] 98.7 fL High 82.0-98.0 [facility] Comment on above: Performed By: #### L [id number] #### [facility] ([facility]) [address] [place] [address] PLATELETS (10*3/UL) IN BLOOD AUTOMATED COUNT 166 10*3/uL Normal 150-400 [facility] Comment on above: Performed By: #### L [id number] #### [facility] ([facility]) [address] [place] [address] RBC (Bld) [#/Vol] 3.90 10*6/uL Low 4.20-5.70 [facility] Comment on above: Performed By: #### L [id number] #### [facility] ([facility]) [address] [place] [address] WBC (Bld) [#/Vol] 4.72 10*3/uL Normal 4.00-10.60 [facility] Comment on above: Performed By: #### L [id number] #### [facility] ([facility]) [address] [place] [address] COMPREHENSIVE METABOLIC PANE Mayito 12-27-2023 Albumin [Mass/Vol] 3.1 g/dL Low 3.5-5.7 [facility] Comment on above: Performed By: #### L [id number] ####[facility] [place] [address] ALP [Catalytic activity/Vol] 120 U/L High 34-104 [facility] Comment on above: Performed By: #### L [id number] ####[facility] (BEAKER)[address] [place] [address] ALT [Catalytic activity/Vol] 25 U/L Normal 7-52 [facility] Comment on above: Performed By: #### L [id number] ####[facility] (BEAKER)[address] [place] [address] Anion gap [Moles/Vol] 12 mmol/L Normal 7-[address] [facility] Comment on above: Performed By: #### L [id number] ####[facility] (BEAKER)[address] [place] [address] AST [Catalytic activity/Vol] 46 U/L High 13-39 [facility] Comment on above: Performed By: #### L [id number] ####[facility] (BEAKER)[address] [place] [address] Bilirubin [Mass/Vol] 1.9 mg/dL High 0.3-1.0 [facility] Comment on above: Performed By: #### L [id number] ####[facility] (BEAKER)[address] [place] [address] Calcium [Mass/Vol] 9.0 mg/dL Normal 8.6-10.3 [facility] Comment on above: Performed By: #### L [id number] ####[facility] (BEAKER)[address] [place] [address] Chloride [Moles/Vol] 98 mmol/L Normal 98-107 [facility] Comment on above: Performed By: #### L [id number] ####[facility] (BEAKER)[address] [place] [address] CO2 [Moles/Vol] 26 mmol/L Normal 21-31 [facility] Comment on above: Performed By: #### L [id number] ####[facility] (BEAKER)[address] [place] [address] Creatinine [Mass/Vol] 1.11 mg/dL Normal 0.70-1.[address] [facility] Comment on above: Performed By: #### L [id number] ####[facility] ([facility])[address] [place] [address] GLOMERULAR FILTRATION RATE ML/MIN/1.73 SQ M.PREDICTED 71.4 mL/min/1.73m*2 Normal >60.0 [facility] Comment on above: Result Comment: [facility]???s estimated glomerular filtration rate (eGFR) will no [...] of individuals. Performed By: #### L [id number] ####[facility] ([facility])[address] [place] [address] Glucose [Mass/Vol] 111 mg/dL High 70-100 [facility] Comment on above: Performed By: #### L [id number] ####[facility] ([facility])[address] [place] [address] Potassium [Moles/Vol] 4.4 mmol/L Normal 3.5-5.[address] [facility] Comment on above: Performed By: #### L [id number] ####[facility] ([facility])[address] [place] [address] Protein [Mass/Vol] 7.3 g/dL Normal 6.0-8.3 [facility] Comment on above: Performed By: #### L [id number] ####[facility] ([facility])[address] [place] [address] Sodium [Moles/Vol] 132 mmol/L Low 136-145 [facility] Comment on above: Performed By: #### L [id number] ####[facility] (BEAKER)[address] [place] [address] Urea nitrogen [Mass/Vol] 17 mg/dL Normal 7-25 [facility] Comment on above: Performed By: #### L [id number] ####[facility] (BEAKER)[address] [place] [address] UREA NITROGEN/CREATININE (MASS RATIO) IN SER/PLAS 15.3 Normal [facility] Comment on above: Performed By: #### L [id number] ####[facility] (BEAKER)[address] [place] [address] Labon 12-27-2023 Lab [id number] Ambrosio Blandon 1955 M Date Provider Department Center 12/27/2023 2244-[facility] MP LAB RESOURCE MP DRAW Medical Pavi No family history on file Normal [facility] Office Visiton 12-27-2023 Follow-up visit [id number] JamiaAmbrosio 1955 M Date Provider Department Center 12/27/2023 298-IRENA JOHNSON MP GI Medical Pavi No family history on file Level of Service:14875 [place] OFFICE/OUTPATIENT ESTABLISHED HIGH MDM 40 MIN () Reason for Visit and Comments: Follow-up [284626] Cirrhosis [239] Ascites [295] Normal [facility] PROTIME-INRon 12-27-2023 INR IN PPP BY COAGULATION ASSAY 1.21 High 0.90-1.10 [facility] Comment on above: Result Comment: ACCC P [...] 1995;108:231S-246S. Performed By: #### L [id number] #### [facility] (BEAKER) [address] [place] [address] PROTHROMBIN TIME (PT) IN PPP BY COAGULATION ASSAY 15.3 Seconds High 12.3-14.8 [facility] Comment on above: Performed By: #### L [id number] #### [facility] (BEAKER) [address] [place] [address] 36on 12-21-2023 36 I called and spoke w ith the patient's in regards to his recent lab work after increasing his diuretics. His creatinine and electrolytes are grossly stable after increasing his Lasix and Aldactone. We will continue with the current regimen of Lasix 40 twice daily and Aldactone 200 mg daily and follow-up in hepatology clinic on 12/27/2023. Normal [facility] Orders Onlyon 12-21-2023 Orders Only [id number] Ambrosio Blandon 1955 M Date Provider Department Center 12/21/2023 [id number], HISTORICAL GI Medical Pavi No family history on file Normal [facility] Telephoneon 12-21-2023 Telephone [id number] Ambrosio Blandon 1955 M [facility] Provider Department Center 12/21/2023 [id number]-PLGMTGIBSON HAZEL GI Medical Pavi No family history on file Normal [facility] Orders Onlyon 12-20-2023 Orders Only [id number] Ambrosio Blandon 1955 M [facility] Provider Department Center 12/20/2023 [id number], HISTORICAL GI Medical Pavi No family history on file [facility] 36on 12-14-2023 36 Air Control/Anti Air Warfare Officer faxed lab ord ers to [facility]. Normal [facility] 36 ----- Message from Serena Hazel MD sent at 12/14/2023 1:36 PM EDT ----- Petra, I sent over a prescription for his diuretics and recommended that they have repeat CMP next week. The order has been placed, can you please fax this to [facility] so that they can get them done next week? Thank you so much ----- Message ----- From: Rachel Doan MA Sent: 12/13/2023 1:35 PM EDT To: Gibson Hazel MD A new document has been added to this order with description CMP results [facility]. [facility] 36 Patient's sheryl lu last week [...] assess his diuretics further at that time. [facility] Orders Onlyon 12-14-2023 Orders Only [id number] Ambrosio Blandon 1955 M Date Provider Department Center 12/14/202327208-AZRAEGIBSON HAZEL GI Medical Pavi No family history on file [facility] Telephoneon 12-14-2023 Telephone [id number] Ambrosio Blandon 1955 M Date Provider Department Center 12/14/202346085-YPKDJGIBSON HAZEL MP GI Medical Pavi No family history on file [facility] Orders Onlyon 12-13-2023 Orders Only [id number] Ambrosio Blandon 1955 M Date Provider Department Center 12/13/2023 [id number], MAGALIS GI Medical Pavi No family history on file [facility] 36on 12-11-2023 36 Patient's repor ts [...] an appointment in hepatology clinic on 12/27/2023. [facility] 36 of patient call s today stating that when they went for paracentesis at [facility] last week - the patient was admitted. [...] clinic visit with Dr. Johnson on 12/27/2023. [facility] Orders Onlyon 12-11-2023 Orders Only [id number] Ambrosio Blandon 1955 M Date Provider Department Center 12/11/202301006-NSSOTGBISON HAZEL GI Medical Pavi No family history on file [facility] Telephoneon 12-11-2023 Telephone [id number] Ambrosio Blandon 1955 M Date Provider Department Center 12/11/202386410-DDSSLGIBSON HAZEL GI Medical Pavi No family history on file Normal [facility] Mayito 12-08-2023 L Specimen: Received: 12/11/23 Status: SERAEmilie Coffey Num: [id number] Spec Type: Cytology Subm Dr: Devyn Winter DO Tissues: A PLEURAL FLUID (PLEUR) Procedures: HE/2, Gross/Micro L4, Cyto Prepstain, PAPSTN Age/ Patient Sex Location Account Attending Physician Charles Blandon 68/M LABELL [id number] Devyn Winter DO SPEC NUM: BC RECD: 12/11/23 STATUS: HUSAM COFFEY NUM: [id number] WEN: 12/08/[address]: Devyn Winter DO ENTERED: 12/11/[address]: Aliza Arroyo SPEC TYPE: Cytology DEPT: [facility] ENTERED BY: [id number] RECV BY: [id number] ORDERED: HE/2, Gross/Micro L4, Cyto Prepstain, PAPSTN [...] Specimen: Received: 12/11/23 Status: HUSAM Coffey Num: [id number] Spec Type: Cytology Subm Dr: Devyn Winter DO Tissues: A PLEURAL FLUID (PLEUR) Procedures: HE/2, Gross/Micro L4, Cyto Prepstain, PAPSTN Patient: JamiaCharles [id number] (Continued) Specimen: [id number] Received: 12/11/23 (Continued) Signed (signature on file) Windy Duque MD 12/14/23 1503 Specimen: BC24 Received: 12/11/23 Status: HUSAM Coffey Num: [id number] Spec Type: Cytology Subm Dr: Devyn Winter DO Tissues: A PLEURAL FLUID (PLEUR) Procedures: HE/2, Gross/Micro L4, Cyto Prepstain, PAPSTN Patient: JamiaCharles [id number] (Continued) Specimen: BC Received: 12/11/23 (Continued) CPT Codes 48691 24556 Specimen: Received: 12/11/23 Status: HUSAM Coffey Num: [id number] Spec Type: Cytology Subm Dr: Devyn Winter DO Tissues: A PLEURAL FLUID (PLEUR) Procedures: HE/2, Gross/Micro L4, Cyto Prepstain, PAPSTN Patient: Charles Blandon [id number] (Continued) Signed (signature on file) Windy Duque MD 12/14/23 1503 Normal [facility] 12-07-2023 L Specimen: Received: 12/14/23 Status: HUSAM Coffey Num: [id number] Spec Type: Cytology Subm Dr: Ward Stern MD Tissues: A ASCITES (ASC) Procedures: HE/2, Gross/Micro L4, Cyto Prepstain, PAPSTN Age/ Patient Sex Location Account Attending Physician Charles Blandon 68/M LABELL [id number] Ward Stern MD SPEC NUM: BC RECD: 12/14/23 STATUS: HUSAM COFFEY NUM: [id number] WEN: 12/07/23 DR: Ward Stern MD ENTERED: 12/14/23 [facility] DR: Dina,Lab SPEC TYPE: Cytology DEPT: [facility] ENTERED BY: [id number] RECV BY: [id number] ORDERED: HE/2, Gross/Micro L4, Cyto Prepstain, PAPSTN [...] BC24 Received: 12/14/23 Status: HUSAM Coffey Num: [id number] Spec Type: Cytology Subm Dr: Ward Stern MD Tissues: A ASCITES (ASC) Procedures: HE/2, Gross/Micro L4, Cyto Prepstain, PAPSTN Patient: Charles Blandon [id number] (Continued) Specimen: [id number] Received: 12/14/23 (Continued) Signed (signature on file) Windy Duque MD 12/19/23 1440 Specimen: Received: 12/14/23 Status: HUSAM Coffey Num: [id number] Spec Type: Cytology Subm Dr: Ward Stern MD Tissues: A ASCITES (ASC) Procedures: HE/2, Gross/Micro L4, Cyto Prepstain, PAPSTN Patient: Charles Blandon [id number] (Continued) Specimen: Received: 12/14/23 (Continued) CPT Codes 96149 23095 Specimen: Received: 12/14/23 Status: HUSAM Coffey Num: [id number] Spec Type: Cytology Subm Dr: Ward Stern MD Tissues: A ASCITES (ASC) Procedures: HE/2, Gross/Micro L4, Cyto Prepstain, PAPSTN Patient: Charles Blandon [id number] (Continued) Signed (signature on file) Robert-Fabio Duque MD 12/19/23 9234 Normal [facility] 36on 12-01-[address] Hazel in clinic, order placed and faxed to [facility] at [phone] [facility] 36 calls stating t hat patient is in need of an order for paracentesis. Order will need to be sent to [facility]. Normal [facility] Orders Onlyon 12-01-2023 Orders Only [id number] Ambrosio Blandon 1955 M Date Provider Department Center 12/01/202378746-YJTYDGIBSON HAZEL GI Medical Pavi No family history on file [facility] HPon 11-27-2023 HP ----- ----- Attestation [...] PROT B12/Folate/Iron studies: No results found for: [id number] , FOLATE , IRON , TIBC , UIBC , IRONSAT , FERRITIN ASSESSMENT AND PLAN Charles Blandon is a 68 y.o. male who has a known past medical history significant for alcoholic liver cirrhosis, Recinos's esophagus and hepatic encephalopathy is scheduled today for an EGD for esophageal varices screening. Plan: Plan for EGD today for esophageal varices secondary to liver cirrhosis. Normal [facility] POCT GLUCOSE METER UNSOLICIT ED RESULTSon 11-27-2023 Glucose [Mass/Vol] 101 mg/dL Normal 70-105 [facility] Comment on above: Order Comment: Waive d Testing in the ED is performed under the ED CLIA certificate #[id number]. Result Comment: jhag eman Performed By: #### L [id number] #### [facility] (BEAKER) [address] [place] [address] 36on 11-21-2023 36 Appeal submitted Normal [facility] Orders Onlyon 11-21-2023 Orders Only [id number] Ambrosio Blandon emma 1955 M Date Provider Department Center 11/21/2023 BROOKLYNN ZEPEDA MP GI Medical Pavi No family history on file Normal [facility] Prep for Procedureon 024 Prep for Procedure [id number] Ambrosio Blandon emma 1955 M Date Provider Department Center 11/21/2023 IRENA SCHMIDT [facility] GISC GEORGEI No family history on file Normal [facility] MR ABDOMEN W AND WO CONTRAST on [...] signed: Adalid Montiel. 9 Invalid Interpretation Code [facility] Orders Only11-08-2023 Orders Only [id number] Ambrosio Blandon 1955 M [facility] Provider Department Center 11/08/2023 [id number]-YKYPZOBROOKLYNN JOSHUA GI Medical Pavi No family history on file Normal [facility] 11-02-2023 36 Patient's carmen jolynn to verify that Dr. Jesus will now be prescribing the Famotidine and Baclofen because the previously prescribing physician no longer will now that he is a [facility] GI patient. The preferred pharmacy is [facility] in [place]. Please advise and these orders can then be pended. Normal [facility] Orders Only11-02-2023 Orders Only [id number] Ambrosio Blandon 1955 M Date Provider Department Center 11/02/2023 [id number], HISTORICAL MP GI Medical Pavi No family history on file Normal [facility] 3610-26-2023 36 I called the patient and [...] MRI of his liver on the . [facility] Orders Onlyon 10-26-2023 Orders Only [id number] Ambrosio Blandon 1955 M Date Provider Department Center 10/26/202303127-JMEIHGIBSON TAYLOR MP GI Medical Pavi No family history on file [facility] Telephoneon 10-26-2023 Telephone [id number] Ambrosio Blandon 1955 M Date Provider Department Center 10/26/202354146-DXLKXGIBSON HAZEL MP Medical Pavi No family history on file [facility] Orders Onlyon 10-24-2023 Orders Only [id number] Ambrosio Blandon 1955 M Date Provider Department Center 10/24/2023 [id number], MAGALIS GI Medical Pavi No family history on file [facility] Orders Onlyon 10-20-2023 Orders Only [id number] Ambrosio Blandon 1955 M Date Provider Department Center 10/20/2023 RUFINO HORN [facility] Medical No family history on file [facility] 36on 10-18-2023 36 I called the [...] we can follow-up on his sodium level. [facility] 36 Patients called stating they were [...] back from you to clarify some things. [facility] Orders Onlyon 10-18-2023 Orders Only [id number] Ambrosio Blandon 1955 M Date Provider Department Center 10/18/2023EKATERINA QUINTANILLA [facility] No family history on file [facility] [facility] Telephone[facility] 10-18-2023 Telephone [id number] Ambrosio Blandon 1955 M Date Provider Department Center 10/18/[id number]-BZXEDGIBSON ESPOSITO MP [facility] No family history on file [facility] Orders Onlyon 10-17-2023 Orders Only [id number] Ambrosio Blandon 1955 M Date Provider Department Center 10/17/202382561-FOXEFGIBSON ESPOSITO MP [facility] No family history on file [facility] Documentationon 10-16-2023 Documentation [id number] Ambrosio Blandon 1955 M Date Provider Department Center 10/16/2023 CARMELLA NICOLE MP [facility] No family history on file Reason for Visit and Comments: Specialty Pharmacy Note: Xifaxan PAP [Other] [facility] Prep for Procedureon 024 Prep for Procedure [id number] Ambrosio Blandon 1955 M Date Provider Department Center 10/16/2023 IRENA SCHMIDT [facility] No family history on file Normal [facility] BASIC METABOLIC PANELon - Anion gap [Moles/Vol] 14 mmol/L Normal 7-[address] [facility] Comment on above: Performed By: #### L AB15 #### [facility] (BEAKER) [address] [place] [address] Calcium [Mass/Vol] 9.1 mg/dL Normal 8.6-10.3 [facility] Comment on above: Performed By: #### L AB15 #### [facility] (BEAKER) [address] [place] [address] Chloride [Moles/Vol] 96 mmol/L Low 98-107 [facility] Comment on above: Performed By: #### L [id number] #### [facility] (BEAKER) [address] [place] [address] CO2 [Moles/Vol] 22 mmol/L Normal 21-31 [facility] Comment on above: Performed By: #### L AB15 #### [facility] (BEAKER) [address] [place] [address] Creatinine [Mass/Vol] 1.00 mg/dL Normal 0.70-1.[address] [facility] Comment on above: Performed By: #### L [id number] #### [facility] (BEAKER) [address] [place] [address] GLOMERULAR FILTRATION RATE ML/MIN/1.73 SQ M.PREDICTED 81.0 mL/min/1.73m*2 Normal >60.0 [facility] Comment on above: Result Comment: [facility]???s estimated glomerular filtration rate (eGFR) will no [...] individuals. Performed By: #### L AB15 #### [facility] ([facility]) [address] [place] [address] Glucose [Mass/Vol] 108 mg/dL High 70-100 [facility] Comment on above: Performed By: #### L [id number] #### [facility] ([facility]) [address] [place] [address] Potassium [Moles/Vol] 4.8 mmol/L Normal 3.5-5.1 [facility] Comment on above: Performed By: #### L [id number] #### [facility] ([facility]) [address] [place] [address] Sodium [Moles/Vol] 127 mmol/L Low 136-145 [facility] Comment on above: Performed By: #### L [id number] #### [facility] ([facility]) [address] [place] [address] Urea nitrogen [Mass/Vol] 13 mg/dL Normal 7-25 [facility] Comment on above: Performed By: #### L AB15 #### [facility] ([facility]) [address] [place] [address] UREA NITROGEN/CREATININE (MASS RATIO) IN SER/PLAS 13.0 Normal [facility] Comment on above: Performed By: #### L AB15 #### [facility] ([facility]) [address] [place] [address] CBCon 10-13-2023 Erythrocyte distribution width (RBC) [Ratio] 14.2 % Normal 11.5-15.0 [facility] Comment on above: Performed By: #### L [id number] #### [facility] ([facility]) [address] [place] [address] ERYTHROCYTE MEAN CORPUSCULAR HEMOGLOBIN CONCENTRATION (G/DL) BY AUTOMATED 34.5 g/dL Normal 32.0-35.0 [facility] Comment on above: Performed By: #### L [id number] #### [facility] [address] [place] [address] Hematocrit (Bld) [Volume fraction] 38.0 % Low 39.0-55.0 [facility] Comment on above: Performed By: #### L [id number] #### [facility] [address] [place] [address] Hemoglobin (Bld) [Mass/Vol] 13.1 g/dL Normal 13.0-17.0 [facility] Comment on above: Performed By: #### L [id number] #### [facility] ([facility]) [address] [place] [address] MCH (RBC) [Entitic mass] 34.4 pg High 27.0-33.0 [facility] Comment on above: Performed By: #### L [id number] #### [facility] [address] [place] [address] MCV (RBC) [Entitic vol] 99.7 fL High 82.0-98.0 [facility] Comment on above: Performed By: #### L [id number] #### [facility] [address] [place] [address] PLATELETS (10*3/UL) IN BLOOD AUTOMATED COUNT 212 10*3/uL Normal 150-400 [facility] Comment on above: Performed By: #### L [id number] #### [facility] [address] [place] [address] RBC (Bld) [#/Vol] 3.81 10*6/uL Low 4.20-5.70 [facility] Comment on above: Performed By: #### L [id number] #### [facility] [address] [place] [address] WBC (Bld) [#/Vol] 6.20 10*3/uL Normal 4.00-10.60 [facility] Comment on above: Performed By: #### L [id number] #### [facility] ([facility]) [address] [place] [address] HEPATIC FUNCTION PANELon Albumin [Mass/Vol] 3.4 g/dL Low 3.5-5.7 [facility] Comment on above: Performed By: #### L AB20 #### [facility] ([facility]) [address] [place] [address] ALP [Catalytic activity/Vol] 114 U/L High 34-104 [facility] Comment on above: Performed By: #### L [id number] #### [facility] ([facility]) [address] [place] [address] ALT [Catalytic activity/Vol] 23 U/L Normal 7-52 [facility] Comment on above: Performed By: #### L [id number] #### [facility] ([facility]) [address] [place] [address] AST [Catalytic activity/Vol] 48 U/L High 13-39 [facility] Comment on above: Performed By: #### L AB20 #### [facility] ([facility]) [address] [place] [address] Bilirubin [Mass/Vol] 1.5 mg/dL High 0.3-1.0 [facility] Comment on above: Performed By: #### L AB20 #### [facility] ([facility]) [address] [place] [address] Magnesium [Mass/Vol] 0.5 mg/dL High 0-0.2 [facility] Comment on above: Performed By: #### L [id number] #### [facility] ([facility]) [address] [place] [address] Protein [Mass/Vol] 7.8 g/dL Normal 6.0-8.3 [facility] Comment on above: Performed By: #### L AB20 #### [facility] (BEAKER) [address] [place] [address] Labon 10-13-2023 Lab [id number] Ambrosio Blandon 1955 M Date Provider Department Center 10/13/2023 2244-[facility] MP LAB RESOURCE MP DRAW Medical Pavi No family history on file Normal [facility] Office Visiton 10-13-2023 Follow-up visit [id number] Ambrosio Blandon 1955 M Date Provider Department Center 10/13/2023 298-IRENA JOHNSON MP GI Medical [facility]avi No family history on file Level of Service:26839 [place] OFFICE/OUTPATIENT ESTABLISHED HIGH MDM 40 MIN (GC) Reason for Visit and Comments: Cirrhosis [239] Ascites [295] Normal [facility] PROTIME-INRon 10-13-2023 INR IN PPP BY COAGULATION ASSAY 1.17 High 0.90-1.10 [facility] Comment on above: Result Comment: ACCC P [...] 1995;108:[id number]-246S. Performed By: #### L [id number] #### [facility] (BEAKER) [address] [place] [address] PROTHROMBIN TIME (PT) IN PPP BY COAGULATION ASSAY 14.9 Seconds High 12.3-14.8 [facility] Comment on above: Performed By: #### L [id number] #### [facility] (BEAKER) [address] [place] [address] Orders Onlyon 10-06-2023 Orders Only [id number] Jamia,Ambrosio emma 1955 M Date Provider Department Center 10/06/2023 [id number], HISTORICAL MP GI Medical [facility] No family history on file Normal [facility] Mayito 10-03-2023 L Specimen: [id number] Received: 10/04/23 Status: HUSAM Coffey Num: [id number] Spec Type: Cytology Subm Dr: Arias Jesus MD Tissues: A ASCITES (ASC) Procedures: HE/2, Gross/Micro L4, Cyto Prepstain, PAPSTN Age/ Patient Sex Location Account Attending Physician Charles Blandon 68/M LABELL [id number] Ward Stern MD SPEC NUM: [id number] RECD: 10/04/23 STATUS: HUSAM COFFEY NUM: [id number] WEN: 10/03/[address]: Arias Jesus MD ENTERED: 10/04/23 [facility] DR: Dina,Lab Ward Stern MD SPEC TYPE: Cytology DEPT: [facility] ENTERED BY: [id number] RECV BY: [id number] ORDERED: HE/2, Gross/Micro L4, Cyto Prepstain, PAPSTN ORDERED: HE/2, Gross/Micro L4, Cyto Prepstain, PAPSTN Pathological Diagnosis Ascites fluid cytology: Atypical cells noted. Clinical Information cirrhosis, liver lesion Gross Description Received is 1000 ml yellow cloudy unfixed fluid for cytology said to have been obtained as abdominal ascites fluid. ThinPrep and cell block preparations are prepared for microscopic examination. (NM/nv) CPT Codes 16423 Specimen: [id number] Received: 10/04/23 Status: HUSAM Coffey Num: [id number] Spec Type: Cytology Subm Dr: Arias Jesus MD Tissues: A ASCITES (ASC) Procedures: HE/2, Gross/Micro L4, Cyto Prepstain, PAPSTN Patient: Charles Blandon [id number] (Continued) Signed (signature on file) Linette Bean MD 10/05/23 1340 Normal [facility] Orders Onlyon 09-27-2023 Orders Only [id number] Ambrosio Blandon 1955 M Date Provider Department Center 09/27/2023 204-H[facility] No family history on file Normal [facility] CREATININE, SERUMon 09-25-19 Creatinine [Mass/Vol] 1.06 mg/dL Normal 0.70-1.30 [facility] Comment on above: Performed By: #### L [id number] #### [facility] (BEAKER) [address] [place] [address] GLOMERULAR FILTRATION RATE ML/MIN/1.73 SQ M.PREDICTED 75.5 mL/min/1.73m*2 Normal >60.0 [facility] Comment on above: Result Comment: [facility]???s estimated glomerular filtration rate (eGFR) will no [...] individuals. Performed By: #### L [id number] #### [facility] (BEAKER) [address] [place] [address] CTA ABDOMEN PELVIS W IV CONT RASTon [...] Gan MD. Not Vldtd Invalid Interpretation Code [facility] Labon 09-25-2023 Lab [id number] Ambrosio Blandon 1955 M Date Provider Department Center 09/25/2023 2245-[facility] OPD LAB RESOURCE [facility] OPD [facility] No family history on file Normal [facility] Orders Onlyon 09-23-2023 Orders Only [id number] Ambrosio Blandon emma 1955 M Date Provider Department Center 09/23/2023 204-HARSHA [facility] No family history on file Normal [facility] Orders Onlyon 09-15-2023 Orders Only [id number] Ambrosio Blandon 1955 M Date Provider Department Center 09/15/2023 [id number], BETH [facility] No family history on file Normal [facility] Orders Onlyon 09-14-2023 Orders Only [id number] Ambrosio Blandon 1955 M Date Provider Department Center 09/14/2023 BROOKLYNN ZEPEDA MP GI Medical [facility]avi No family history on file Normal [facility] Orders Onlyon 08-28-2023 Orders Only [id number] Ambrosio Blandon 1955 M Date Provider Department Center 08/28/2023 [id number], HISTORICAL MP GI Medical [facility] No family history on file Normal [facility] Orders Onlyon 08-24-2023 Orders Only [id number] Ambrosio Blandon 1955 M Date Provider Department Center 08/24/2023 [id number]-COZJQUJW, HISTORICAL MP GI [facility] No family history on file Normal [facility] 29on 08-09-2023 29 Addended by: ARIAS JESUS on: 08/09/2023 12:50 PM Modules accepted: Orders Normal [facility] Orders Onlyon 08-09-2023 Orders Only [id number] Ambrosio Blandon 1955 M Date Provider Department Center 08/09/2023 JASON COFFEY GI [facility] No family history on file [facility] Office Visiton 08-07-2023 Follow-up visit [id number] Ambrosio Blandon 1955 M Date Provider Department Center 08/07/2023 294-ARIAS JESUS [facility] No family history on file Level of Service:22731 [place] OFFICE/OUTPATIENT NEW LOW MDM 30 MINUTES (GC) Reason for Visit and Comments: New Patient [632] Weight Loss [184470] - 30 pound weight loss since . Pt recently had surgery for 3 polyps removed and 1 hemorrhoid removal. Dyskenisia of esophgaus [Other] Nausea [70] Vomiting [120] - Pt has a urge to but does not vomit. Normal [facility] Mayito 06-13-2023 L Specimen: [id number] Received: 06/14/23 Status: HUSAM Coffey Num: [id number] Spec Type: Surgical Subm Dr: Janneth Villegas DO Tissues: A Hemorrhoids (HEMORRHOID 9:00) Procedures: HE, Gross/Micro L3 Age/ Patient Sex Location Account Attending Physician Charles Blandon 67/M [place] [id number] Janneth Villegas DO SPEC NUM: [id number] RECD: 06/14/23 STATUS: HUSAM REMartin NUM: [id number] WEN: 06/13/[address]: Janneth Villegas DO ENTERED: 06/14/23 [facility] DR: SPEC TYPE: Surgical DEPT: S [...] cut surfaces with diffusely dilated blood-filled spaces. [employer] sections are submitted in 1 cassette as follows: A1 - 1 office services representative section from each fragment to demonstrate change in mucosal types of the largest fragment CPT Codes 95000 Specimen: [id number] Received: 06/14/23 Status: HUSAM Coffey Num: [id number] Spec Type: Surgical Subm Dr: Janneth Villegas DO Tissues: A Hemorrhoids (HEMORRHOID 9:00) Procedures: HE, Gross/Micro L3 Patient: Charles Blandon [id number] (Continued) Signed (signature on file) Linette Bean MD 06/27/23 2239 Normal [facility] Automated basophil %Ordered By: Janneth Villegas on 06-02-2023 Basophils/100 WBC (Bld) 0.7 % Normal . [facility] Comment on above: Performed By: #### B MP, CBC #### [facility] [address] Automated basophil countOrde red By: Janneth Villegas on 06-02-2023 Basophils (Bld) [#/Vol] 0.0 10*3/uL Normal 0.0-0.2 [facility] Comment on above: Result Comment: PERF ORMED BY: [facility] [address] [place] [address] PATHOLOGIST MANAGER [employer]INT[employer]ARK LEARY M.D. Performed By: #### B MP, CBC #### [address] Automated blood monocyte cou ntOrdered By: Janneth Villegas on 06-02-2023 Monocytes (Bld) [#/Vol] 0.9 10*3/uL High 0.0-0.8 [facility] Comment on above: Performed By: #### B MP, CBC #### [address] Automated eosinophil %Ordere d By: Janneth Villegas on 06-02-2023 Eosinophils/100 WBC (Bld) 1.9 % Normal . [facility] Comment on above: Performed By: #### B MP, CBC #### [address] Automated eosinophil countOr dered By: Janneth Villegas on 06-02-2023 Eosinophils (Bld) [#/Vol] 0.1 10*3/uL Normal 0.0-0.45 [facility] Comment on above: Performed By: #### B MP, CBC #### [address] Automated monocyte %Ordered By: Janneth Villegas on 06-02-2023 Monocytes/100 WBC (Bld) 15.7 % Normal . [facility] Comment on above: Performed By: #### B MP, CBC #### [address] Automated neutrophil %Ordere d By: Janneth Villegas on 06-02-2023 Neutrophils/100 WBC (Bld) 68.5 % Normal . [facility] Comment on above: Performed By: #### B MP, CBC #### [address] Basic Metabolic Panelon 05-18 GFR/1.73 sq M.predicted MDRD (S/P/Bld) [Vol rate/Area] mL/min/{1.73_m2} Normal [facility] Comment on above: Performed By: #### B MP, CBC #### [address] Calcium [Mass/volume] in Ser um or PlasmaOrdered By: Janneth Villegas on 06-02-2023 Calcium [Mass/Vol] 8.6 mg/dL Normal 8.6-10.3 [facility] Comment on above: Result Comment: PERF ORMED BY: [place] [address] PATHOLOGIST MANAGER [employer]INT[employer]ARK LEARY M.D. Performed By: #### B MP, CBC #### [address] Carbon dioxide, total [Moles /volume] in Serum or PlasmaOrdered By: Janneth Villegas on 06-02-2023 CO2 [Moles/Vol] 27.3 mmol/L Normal 21.0-31.0 [facility] Comment on above: Performed By: #### B MP, CBC #### [address] Chloride [Moles/volume] in S mateo or PlasmaOrdered By: Janneth Villegas on 06-02-2023 Chloride [Moles/Vol] 96 mmol/L Low 98-107 [facility] Comment on above: Performed By: #### B MP, CBC #### [address] Complete Blood Count Auto Di ffon 06-02-2023 Mean Corpuscular HGB Conc 35.2 g/dL Normal 32.5-35.6 [facility] Comment on above: Performed By: #### B MP, CBC #### [address] NRBC% 0.1 /100{WBC} Normal 0-0.5 [facility] Comment on above: Performed By: #### B MP, CBC #### [address] Creatinine [Mass/volume] in Serum or PlasmaOrdered By: Janneth Villegas on 06-02-2023 Creatinine [Mass/Vol] 1.07 mg/dL Normal 0.70-1.30 [facility] Comment on above: Performed By: #### B MP, CBC #### [facility] [address] [place] [address] [facility] ECG 12 lead ECGon 06-02-2023 ECG 12 lead ECG [facility] Main [place] [address] [place] [address] Electrocardiograph Report Signed Patient: Charles Blandon MR#: [id number] 66 : 1955 Acct:[id number] Age/Sex: 67 / M ADM Date: 06/02/23 Loc: Room: Type: [facility] Attending Dr: Janneth Villegas DO [...] previous ECGs available Confirmed by Gurpreet Dyson ([id number]) on 06/02/2023 6:21:10 PM Referred By: VENKAT VILLEGAS Electronically Signed By:Gurpreet Dyson Transcribed By: MUS Signed By Gurpreet Dyson MD 06/02/23 1821 Normal [facility] Erythrocyte distribution wid th [Ratio] by Automated countOrdered By: Janneth Villegas on 06-02-2023 Erythrocyte distribution width (RBC) [Ratio] 13.8 % Normal 12.0-14.8 [facility] Comment on above: Performed By: #### B MP, CBC #### [facility] [address] [place] [address] Erythrocytes [#/volume] in B lood by Automated countOrdered By: Janneth Villegas on 06-02-2023 RBC (Bld) [#/Vol] 3.45 10*6/uL Low 3.90-5.60 [facility] Comment on above: Performed By: #### B BRADLEY, CBC #### [address] Glucose [Mass/volume] in Ser um or PlasmaOrdered By: Janneth Villegas on 06-02-2023 Glucose [Mass/Vol] 132 mg/dL High 70-100 [facility] Comment on above: ADA recommended refe rence rangeRandom Glucose Reference Range is dependent on time and content of last meal. Glucose of more than 200 mg/dL in a nonstressed, ambulatory subject supports the diagnosis of Diabetes Mellitus. Result Comment: Parnell om Glucose Reference Range is dependent on time and content of last meal. Glucose of more than 200 mg/dL in a nonstressed, ambulatory subject supports the diagnosis of Diabetes Mellitus. ADA recommended reference range Performed By: #### B BRADLEY, CBC #### [address] Hematocrit [Volume Fraction] of Blood by Automated countOrdered By: Janneth Villegas on 06-02-2023 Hematocrit (Bld) [Volume fraction] 35.5 % Low 38.8-50.0 [facility] Comment on above: Performed By: #### B BRADLEY, CBC #### [address] Hemoglobin [Mass/volume] in BloodOrdered By: Janneth Villegas on 06-02-2023 Hemoglobin (Bld) [Mass/Vol] 12.5 g/dL Low 13.0-17.0 [facility] Comment on above: Performed By: #### B BRADLEY, CBC #### [address] Leukocytes [#/volume] correc jamila for nucleated erythrocytes in Blood by Automated counOrdered By: Janneth Villegas on 06-02-2023 WBC corrected for nucl RBC Auto (Bld) [#/Vol] 5.7 10*3/uL 4.1-10.5 [facility] Leukocytes [#/volume] in Blo od by Automated countOrdered By: Janneth Villegas on 06-02-2023 WBC (Bld) [#/Vol] 5.7 10*3/uL Normal 4.1-10.5 [facility] Comment on above: Performed By: #### B MP, CBC #### [facility] [address] [place] [address] Lymphocytes [#/volume] in Bl ood by Automated countOrdered By: Janneth Villegas on 06-02-2023 Lymphocytes (Bld) [#/Vol] 0.7 10*3/uL Low 1.00-4.8 [facility] Comment on above: Performed By: #### B MP, CBC #### [facility] [address] [place] [address] Lymphocytes/100 leukocytes i n Blood by Automated countOrdered By: Janneth Villegas on 06-02-2023 Lymphocytes/100 WBC (Bld) 13.2 % Normal . [facility] Comment on above: Performed By: #### B MP, CBC #### [facility] [address] [place] [address] MCH [Entitic mass] by Automa jamila countOrdered By: Janneth Villegas on 06-02-2023 MCH (RBC) [Entitic mass] 36.2 pg High 27.5-35.2 [facility] Comment on above: Performed By: #### B MP, CBC #### [facility] [address] [place] [address] MCHC Auto (RBC) [Mass/Vol]Or dered By: Janneth Villegas on 06-02-2023 MCHC (RBC) [Mass/Vol] 35.2 g/dL 32.5-35.6 [facility] MCV [Entitic volume] by Auto mated countOrdered By: Janneth Villegas on 06-02-2023 MCV (RBC) [Entitic vol] 102.9 fL High 83.5-101 [facility] Comment on above: Performed By: #### B MP, CBC #### [facility] [address] Neutrophils [#/volume] in Bl ood by Automated countOrdered By: Janneth Villegas on 06-02-2023 Neutrophils (Bld) [#/Vol] 3.9 10*3/uL Normal 1.8-7.7 [facility] Comment on above: Performed By: #### B MP, CBC #### [facility] [address] No Panel InformationOrdered By: Janneth Villegas on 06-02-2023 Estimated GFR (CKD-EPI) > 60.0 mL/Min [facility] Creatinine Clearance (Chem N/A [facility] Nucleated erythrocytes [Pres ence] in Blood by Automated countOrdered By: Janneth Villegas on 06-02-2023 Nucleated RBC Auto Ql (Bld) 0.1 /100{WBC} 0-0.5 [facility] Platelet mean volume [Entiti c volume] in Blood by Automated countOrdered By: Janneth Villegas on 06-02-2023 Platelet mean volume (Bld) [Entitic vol] 8.1 fL Normal 6.6-10.1 [facility] Comment on above: Performed By: #### B MP, CBC #### [facility] [address] Platelets [#/volume] in Bloo d by Automated countOrdered By: Janneth Villegas on 06-02-2023 Platelets (Bld) [#/Vol] 153 10*3/uL Normal 150-450 [facility] Comment on above: Performed By: #### B MP, CBC #### [facility] [address] Potassium [Moles/volume] in Serum or PlasmaOrdered By: Janneth Villegas on 06-02-2023 Potassium [Moles/Vol] 4.8 mmol/L Normal 3.5-5.1 [facility] Comment on above: Performed By: #### B MP, CBC #### [facility] [address] [place] [address] Serum or plasma anion gap de terminationOrdered By: Janneth Villegas on 06-02-2023 Anion gap [Moles/Vol] 13.5 mmol/L Normal 6.0-15.0 [facility] Comment on above: Performed By: #### B MP, CBC #### [facility] [address] [place] [address] Sodium [Moles/volume] in Ser um or PlasmaOrdered By: Janneth Villegas on 06-02-2023 Sodium [Moles/Vol] 132 mmol/L Low 136-145 [facility] Comment on above: Performed By: #### B BRADLEY, CBC #### [facility] [address] [place] [address] Urea nitrogen [Mass/volume] in Serum or PlasmaOrdered By: Janneth Villegas on 06-02-2023 Urea nitrogen [Mass/Vol] 12 mg/dL Normal 7-25 [facility] Comment on above: Performed By: #### B BRADLEY, CBC #### [address] NM gastric emptying studyon 04-26-2023 NM gastric emptying study [facility] [place] [address] Nuclear Medicine Report Signed Patient: Charles Blandon MR#: [id number] 66 : 1955 Acct:[id number] Age/Sex: 67 / M ADM Date: 04/26/23 Loc: NM Room: Type: [facility] Attending Dr: Lorna Ortega APRN [...] Alvarez Jr., DEileen04/26/2023 10:18 AM Dictation Location: [place] [address] Transcribed By: ROLAND 04/26/23 1018 Dictated By: Morales Alvarez Jr, DO 04/26/23 1017 Signed By: 04/26/23 1018 Normal [facility] Albumin [Mass/volume] in Ser um or Plasma by Bromocresol green (BCG) dye binding methoOrdered By: Lorna Ortega on 04-12-2023 Albumin BCG dye [Mass/Vol] 3.0 g/dL 3.5-5.7 [facility] Bilirubin.total [Mass/volume ] in Serum or PlasmaOrdered By: Lorna Ortega on 04-12-2023 Bilirubin [Mass/Vol] 1.3 mg/dL High 0.3-1.0 [facility] Comment on above: Samples from patient [...] Bilirubin. Performed By: #### C MP #### [address] Calcium [Mass/volume] in Ser um or PlasmaOrdered By: Lorna Ortega on 04-12-2023 Calcium [Mass/Vol] 8.3 mg/dL Low 8.6-10.3 [facility] Comment on above: Order Comment: Reaso n for Exam Cirrhosis of liver Performed By: #### C MP #### [facility] [address] Carbon dioxide, total [Moles /volume] in Serum or PlasmaOrdered By: Lorna Ortega on 04-12-2023 CO2 [Moles/Vol] 27.3 mmol/L Normal 21.0-31.0 [facility] Comment on above: Order Comment: Reaso n for Exam Cirrhosis of liver Performed By: #### C MP #### [facility] [address] [place] [id number] [facility] Comprehensive Metabolic Pane mayito 04-12-2023 Albumin [Mass/Vol] 3.235828 g/dL Low 3.5-5.7 g/dL [employer] Other Bilirubin [Mass/Vol] 1.6470640 mg/dL High 0.3- 1.0 mg/dL [employer] Other Calcium [Mass/Vol] 8.4221150 mg/dL Low 8.6-10 .3 mg/dL [employer] Other CO2 [Moles/Vol] 27.90369238 mmol/L Normal 21.0-3 1.0 mmol/L [employer] Other Creatinine [Mass/Vol] 0.51805454 mg/dL Normal 0. 70-1.30 mg/dL [employer] Other Potassium [Moles/Vol] 5.06122025 mmol/L Normal 3 .5-5.1 mmol/L [employer] Other Protein [Mass/Vol] 6.790631 g/dL Low 6.4-8.9 g/dL [employer] Other Comprehensive Metabolic Panel 3.3 g/dL [employer] Other Albumin [Mass/Vol] 3.0 g/dL Low 3.5-5.7 [facility] Comment on above: Order Comment: Reaso n for Exam Cirrhosis of liver Performed By: #### C MP #### [address] GFR/1.73 sq M.predicted MDRD (S/P/Bld) [Vol rate/Area] mL/min/{1.73_m2} Normal [employer] Other Comment on above: Order Comment: Reaso n for Exam Cirrhosis of liver Performed By: #### C MP #### [facility] [address] [place] [address] Comprehensive Metabolic Pane lOrdered By: Lorna Ortega on 04-12-2023 Albumin/Globulin [Mass ratio] 0.9 {ratio} Normal [facility] Comment on above: Order Comment: Reaso n for Exam Cirrhosis of liver Performed By: #### C MP #### [address] ALP [Catalytic activity/Vol] 158 U/L High 34-104 [facility] Comment on above: Order Comment: Reaso n for Exam Cirrhosis of liver Result Comment: PERF ORMED BY: [place] [address] PATHOLOGIST MANAGER PRINTING CLARK LEARY M.D. Performed By: #### C MP #### [address] ALT [Catalytic activity/Vol] 35 U/L Normal 7-52 [facility] Comment on above: Order Comment: Reaso n for Exam Cirrhosis of liver Performed By: #### C MP #### [place] [address] [place] AST [Catalytic activity/Vol] 76 U/L High 13-39 [facility] Comment on above: Order Comment: Reaso n for Exam Cirrhosis of liver Performed By: #### C MP #### [place] [address] [place] Chloride [Moles/Vol] 95 mmol/L Low 98-107 [facility] Comment on above: Order Comment: Reaso n for Exam Cirrhosis of liver Performed By: #### C MP #### [place] [address] [place] Glucose [Mass/Vol] 94 mg/dL Normal 70-100 [facility] Comment on above: ADA recommended refe rence rangeRandom Glucose Reference Range is dependent on time and content of last meal. Glucose of more than 200 mg/dL in a nonstressed, ambulatory subject supports the diagnosis of Diabetes Mellitus. Order Comment: Reaso n for Exam Cirrhosis of liver Result Comment: Parnell om Glucose Reference Range is dependent on time and content of last meal. Glucose of more than 200 mg/dL in a nonstressed, ambulatory subject supports the diagnosis of Diabetes Mellitus. ADA recommended reference range Performed By: #### C MP #### [facility] [address] Sodium [Moles/Vol] 127 mmol/L Low 136-145 [facility] Comment on above: Order Comment: Reaso n for Exam Cirrhosis of liver Performed By: #### C MP #### [facility] [address] Urea nitrogen [Mass/Vol] 9 mg/dL Normal 7-25 [facility] Comment on above: Order Comment: Reaso n for Exam Cirrhosis of liver Performed By: #### C MP #### [facility] [address] [place] [id number] [facility] Creatinine [Mass/volume] in Serum or PlasmaOrdered By: Lorna Ortega on 04-12-2023 Creatinine [Mass/Vol] 0.81 mg/dL Normal 0.70-1.30 [facility] Comment on above: Order Comment: Reaso n for Exam Cirrhosis of liver Performed By: #### C MP #### [facility] [address] No Panel InformationOrdered By: Lorna Ortega on 04-12-2023 Estimated GFR (CKD-EPI) > 60.0 mL/Min [facility] Creatinine Clearance (Chem N/A [facility] Potassium [Moles/volume] in Serum or PlasmaOrdered By: Lorna Ortega on 04-12-2023 Potassium [Moles/Vol] 5.1 mmol/L Normal 3.5-5.1 [facility] Comment on above: Order Comment: Reaso n for Exam Cirrhosis of liver Performed By: #### C MP #### [address] Protein [Mass/volume] in Ser um or PlasmaOrdered By: Lorna Ortega on 04-12-2023 Protein [Mass/Vol] 6.3 g/dL Low 6.4-8.9 [facility] Comment on above: Order Comment: Reaso n for Exam Cirrhosis of liver Performed By: #### C MP #### [address] Serum globulin measurement b y calculation (mass/volume)Ordered By: Lorna Ortega on 04-12-2023 Globulin (S) [Mass/Vol] 3.3 g/dL Normal [facility] Comment on above: Order Comment: Reaso n for Exam Cirrhosis of liver Performed By: #### C MP #### [address] Serum or plasma anion gap de terminationOrdered By: Lorna Ortega on 04-12-2023 Anion gap [Moles/Vol] 9.8 mmol/L Normal 6.0-15.0 [facility] Comment on above: Order Comment: Reaso n for Exam Cirrhosis of liver Performed By: #### C MP #### [address] XR RIBS 2 VIEWS LEFT WITH [...] muscle IgG Qn (S) 8 Units 0-19 [facility] Comment on above: Negative 0 - 19 Weak positive 20 - 30 Moderate to strong positive >30 Actin Antibodies are found in 52-85% of patients with autoimmune hepatitis or chronic active hepatitis and in 22% of patients with primary biliary cirrhosis. Alanine aminotransferase [En zymatic activity/volume] in Serum or PlasmaOrdered By: Lex Carroll on 09-21-2022 ALT [Catalytic activity/Vol] 30 U/L 7-52 [facility] Albumin [Mass/volume] in Ser um or Plasma by Bromocresol green (BCG) dye binding methoOrdered By: Lex Carroll on 09-21-2022 Albumin BCG dye [Mass/Vol] 3.6 g/dL 3.5-5.7 [facility] Alkaline phosphatase [Enzyma tic activity/volume] in Serum or PlasmaOrdered By: Lex Carroll on 09-21-2022 ALP [Catalytic activity/Vol] 96 U/L 34-104 [facility] Aspartate aminotransferase [ Enzymatic activity/volume] in Serum or PlasmaOrdered By: Lex Carroll on 09-21-2022 AST [Catalytic activity/Vol] 55 U/L 13-39 [facility] Basophils Auto (Bld) [#/Vol] Ordered By: Lex Carroll on 09-21-2022 Basophils (Bld) [#/Vol] 0.0 10*3/uL 0.0-0.2 [facility] Basophils/100 WBC Auto (Bld) Ordered By: Lex Carroll on 09-21-2022 Basophils/100 WBC (Bld) 0.9 % . [facility] Bilirubin.total [Mass/volume ] in Serum or PlasmaOrdered By: Lex Carroll on 09-21-2022 Bilirubin [Mass/Vol] 0.9 mg/dL 0.3-1.0 [facility] Calcium [Mass/volume] in Ser um or PlasmaOrdered By: Lex Carroll on 09-21-2022 Calcium [Mass/Vol] 8.7 mg/dL 8.6-10.3 [facility] Carbon dioxide, total [Moles /volume] in Serum or PlasmaOrdered By: Lex Carroll on 09-21-2022 CO2 [Moles/Vol] 26.9 mmol/L 21.0-31.0 [facility] Chloride [Moles/volume] in S mateo or PlasmaOrdered By: Lex Carroll on 09-21-2022 Chloride [Moles/Vol] 108 mmol/L 98-107 [facility] Cholesterol [Mass/volume] in Serum or PlasmaOrdered By: Lex Carroll on 09-21-2022 Cholesterol [Mass/Vol] 175 mg/dL 140-200 [facility] Comment on above: Chol less than 200 m g/dl low riskChol 201-239 mg/dl borderline riskChol 240 mg/dl and greater high risk Cholesterol in LDL Calc [Mas s/Vol]Ordered By: Lex Carroll on 09-21-2022 Cholesterol in LDL [Mass/Vol] 94 mg/dL 0-100 [facility] Comment on above: LDL ATP III CLASSIFI CATIONLDL less than 100 mg/dL OptimalLDL 100-129 mg/dL Near or above optimalLDL 130-159 mg/dL Borderline highLDL 160-189 mg/dL HighLDL greater than 189 mg/dL Very high Cholesterol in VLDL Calc [Ma ss/Vol]Ordered By: Lex Carroll on 09-21-2022 Cholesterol in VLDL [Mass/Vol] 21 mg/dL [facility] Creatinine [Mass/volume] in Serum or PlasmaOrdered By: Lex Carroll on 09-21-2022 Creatinine [Mass/Vol] 0.90 mg/dL 0.70-1.30 [facility] Eosinophils Auto (Bld) [#/Vo l]Ordered By: Lex Carroll on 09-21-2022 Eosinophils (Bld) [#/Vol] 0.2 10*3/uL 0.0-0.45 [facility] Eosinophils/100 WBC Auto (Bl d)Ordered By: Lex Carroll on 09-21-2022 Eosinophils/100 WBC (Bld) 3.6 % . [facility] Erythrocyte distribution wid th Auto (RBC) [Ratio]Ordered By: Lex Carroll on 09-21-2022 Erythrocyte distribution width (RBC) [Ratio] 14.2 % 12.0-14.8 [facility] Globulin Calc (S) [Mass/Vol] Ordered By: Lex Carroll on 09-21-2022 Globulin (S) [Mass/Vol] 2.8 g/dL [facility] Glucose [Mass/volume] in Ser um or PlasmaOrdered By: Lex Carroll on 09-21-2022 Glucose [Mass/Vol] 123 mg/dL 70-100 [facility] Comment on above: ADA recommended refe rence rangeRandom Glucose Reference Range is dependent on time and content of last meal. Glucose of more than 200 mg/dL in a nonstressed, ambulatory subject supports the diagnosis of Diabetes Mellitus. Hematocrit Auto (Bld) [Volum e fraction]Ordered By: Lex Carroll on 09-21-2022 Hematocrit (Bld) [Volume fraction] 37.5 % 38.8-50.0 [facility] Hemoglobin [Mass/volume] in BloodOrdered By: Lex Carroll on 09-21-2022 Hemoglobin (Bld) [Mass/Vol] 12.9 g/dL 13.0-17.0 [facility] Hepatitis B virus surface Ag [Presence] in Serum or Plasma by ImmunoassayOrdered By: Lex Carroll on 09-21-2022 HBV surface Ag IA Ql Negative Negative [facility] Hepatitis C virus IgG Ab [Pr esence] in Serum or Plasma by ImmunoassayOrdered By: Lex Carroll on 09-21-2022 HCV IgG IA Ql Non-Reactive Non Reactive [facility] - CoagulationOrde red By: Lex Carroll on 09-21-2022 PT Coag (PPP) [Time] 13.0 s 9.0-12.9 [facility] Leukocytes [#/volume] correc jamila for nucleated erythrocytes in Blood by Automated counOrdered By: Lex Carroll on 09-21-2022 WBC corrected for nucl RBC Auto (Bld) [#/Vol] 4.2 10*3/uL 4.1-10.5 [facility] Lymphocytes Auto (Bld) [#/Vo l]Ordered By: Lex Carroll on 09-21-2022 Lymphocytes (Bld) [#/Vol] 1.1 10*3/uL 1.00-4.8 [facility] Lymphocytes/100 WBC Auto (Bl d)Ordered By: Lex Carroll on 09-21-2022 Lymphocytes/100 WBC (Bld) 27.1 % . [facility] MCH Auto (RBC) [Entitic mass ]Ordered By: Lex Carroll on 09-21-2022 MCH (RBC) [Entitic mass] 35.0 pg 27.5-35.2 [facility] MCHC Auto (RBC) [Mass/Vol]Or dered By: Lex Carroll on 09-21-2022 MCHC (RBC) [Mass/Vol] 34.4 g/dL 32.5-35.6 [facility] MCV Auto (RBC) [Entitic vol] Ordered By: Lex Carroll on 09-21-2022 MCV (RBC) [Entitic vol] 101.9 fL 83.5-101 [facility] Monocytes Auto (Bld) [#/Vol] Ordered By: Lex Carroll on 09-21-2022 Monocytes (Bld) [#/Vol] 0.5 10*3/uL 0.0-0.8 [facility] Monocytes/100 WBC Auto (Bld) Ordered By: Lex Carroll on 09-21-2022 Monocytes/100 WBC (Bld) 11.3 % . [facility] Neutrophils Auto (Bld) [#/Vo l]Ordered By: Lex Carroll on 09-21-2022 Neutrophils (Bld) [#/Vol] 2.4 10*3/uL 1.8-7.7 [facility] Neutrophils/100 WBC Auto (Bl d)Ordered By: Lex Carroll on 09-21-2022 Neutrophils/100 WBC (Bld) 57.1 % . [facility] No Panel InformationOrdered By: Lex Carroll on 09-21-2022 Estimated GFR (CKD-EPI) > 60.0 mL/Min [facility] Hepatitis B Core Total Antibody Negative Negative [facility] Comment on above: Performed at: - [address] [id number] Director: John Tang PhD, Phone: [phone] Hepatitis C Interpretation See comment . [facility] Comment on above: Not infected with HC V unless early or acute infection issuspected (which may be delayed in an immunocompromisedindividual), or other evidence exists to indicate HCVinfection. Hepatitis C RNA Quantitative N/A [facility] Creatinine Clearance (Chem 88.23 [facility] Nucleated erythrocytes [Pres ence] in Blood by Automated countOrdered By: Lex Carroll on 09-21-2022 Nucleated RBC Auto Ql (Bld) 0.2 /100{WBC} 0-0.5 [facility] Platelet mean volume Auto (B ld) [Entitic vol]Ordered By: Lex Carroll on 09-21-2022 Platelet mean volume (Bld) [Entitic vol] 9.8 fL 6.6-10.1 [facility] Platelet poor plasma interna tional normalized ratio (INR) by coagulation assay (relatOrdered By: Lex Carroll on 09-21-2022 INR Coag (PPP) [Relative time] 1.1 {INR} [facility] Comment on above: INR Therapeutic Rang e [...] 09-21-2022 Platelets (Bld) [#/Vol] 91 10*3/uL 150-450 [facility] Potassium [Moles/volume] in Serum or PlasmaOrdered By: Lex Carroll on 09-21-2022 Potassium [Moles/Vol] 5.0 mmol/L 3.5-5.1 [facility] Protein [Mass/volume] in Ser um or PlasmaOrdered By: Lex Carroll on 09-21-2022 Protein [Mass/Vol] 6.4 g/dL 6.4-8.9 [facility] RBC Auto (Bld) [#/Vol]Ordere d By: Lex Carroll on 09-21-2022 RBC (Bld) [#/Vol] 3.68 10*6/uL 3.90-5.60 [facility] Serum auqeg-8-hhjfmiimwch me asurementOrdered By: Lex Carroll on 09-21-2022 Alpha 1 antitrypsin [Mass/Vol] 205 mg/dL 101-187 [facility] Serum hepatitis B virus surf waldo antibody detectionOrdered By: Lex Carroll on 09-21-2022 HBV surface Ab Ql (S) Non-Reactive . [facility] Comment on above: Non Reactive: Incons istent with immunity, less than 10 mIU/mL Reactive: Consistent with immunity, greater than 9.9 mIU/mL Serum mitochondria M2 IgG an tibody assay (units/volume)Ordered By: Lex Carroll on 09-21-2022 Mitochondria M2 IgG Qn (S) <20.0 Units 0.0-20.0 [facility] Comment on above: Negative 0.0 - 20.0 Equivocal 20.1 - 24.9 Positive >24.9Mitochondrial (M2) Antibodies are found in 90-96% ofpatients with primary biliary cirrhosis.Performed at: [place] [id number] Director: John Tang PhD, Phone: [phone] Serum or plasma albumin/glob ulin mass ratioOrdered By: Lex Carroll on 09-21-2022 Albumin/Globulin [Mass ratio] 1.3 {ratio} [facility] Serum or plasma alpha 1 anti trypsin phenotyping identification by immunofixationOrdered By: Lex Carroll on 09-21-2022 Alpha 1 antitrypsin phenotyping Immunofixation Nom Mm . [facility] Comment on above: Phenotype Population A-1-AT Concentration* [...] reference. Ranges used to confirm phenotype.Performed at: [facility] [id number] [id number] Director: John Tang PhD, Phone: [phone] at: [facility] Lab[address] [id number] Director: George Brown MD, Phone: [phone] Serum or plasma anion gap de terminationOrdered By: Lex Carroll on 09-21-2022 Anion gap [Moles/Vol] 11.1 mmol/L 6.0-15.0 [facility] Serum or plasma ceruloplasmi n measurement (mass/volume)Ordered By: Lex Carroll on 09-21-2022 Ceruloplasmin [Mass/Vol] 22.4 mg/dL 16.0-31.0 [facility] Comment on above: Performed at: [facility] [address] [id number] Director: John Tang PhD, Phone: [phone] Serum or plasma free cefurox nhi measurement (mass/volume)Ordered By: Lex Carroll on 09-21-2022 Cefuroxime free [Mass/Vol] Negative Negative [facility] Comment on above: Performed at: [facility] [place] [id number] Director: John Tang PhD, Phone: [phone] Serum or plasma high density lipoprotein (HDL) cholesterol measurementOrdered By: Lex Carroll on 09-21-2022 Cholesterol in HDL [Mass/Vol] 60 mg/dL 23-92 [facility] Comment on above: HDL CHOL ATP-III CLA SSIFICATION Cardiovascular RiskHDL > or equal to 60 mg/dL LOWHDL < 40 mg/dL HIGH Serum or plasma total choles terol/high density lipoprotein (HDL) cholesterol mass ratOrdered By: Lex Carroll on 09-21-2022 Cholesterol.total/Chol esterol in HDL [Mass ratio] 2.9 {ratio} <5.0 [facility] Sodium [Moles/volume] in Ser um or PlasmaOrdered By: Lex Carroll on 09-21-2022 Sodium [Moles/Vol] 141 mmol/L 136-145 [facility] Triglyceride [Mass/volume] i n Serum or PlasmaOrdered By: Lex Carroll on 09-21-2022 Triglyceride [Mass/Vol] 107 mg/dL 0-149 [facility] Comment on above: TRIG ATP III CLASSIF ICATIONTRIG less than 150 mg/dL NormalTRIG 150-199 mg/dL Borderline highTRIG 200-500 mg/dL High TRIG greater than 500 mg/dL Very highStandard traceable to the Center for Disease Conrtrol and Prevention (CDC) test method. Urea nitrogen [Mass/volume] in Serum or PlasmaOrdered By: Lex Carroll on 09-21-2022 Urea nitrogen [Mass/Vol] 9 mg/dL 7-25 [facility] WBC Auto (Bld) [#/Vol]Ordere d By: Lex Carroll on 09-21-2022 WBC (Bld) [#/Vol] 4.2 10*3/uL 4.1-10.5 [facility] PROGRESSon 04-05-2017 PROGRESS HNO ID: [id number] Author: Bebe Cunningham Ma Service: (none) Author Type: (none) Type: Progress Notes Filed: 04/05/2017 7:36 AM Note Text: PCP updated [facility] PROGRESS HNO ID: [id number] thor: Tanisha Clarkice: (none)Author Type: PhysicianType: Progress NotesFiled: 04/05/2017 7:36 AMNote Text:This note was created using Digiumriter.Marcio Blandon is a 61 year old male.Review of SystemsObjectiveThere were no vitals taken for this visit.Physical ExamAssessment and PlanPlease remove me as PCP if he is moving out of state and plans toestablish elsewhere.Thank you. [facility] CNPTOUTREACHon 04-04-2017 [facility] Patient Outreach ([facility]) JAMIANATHANIEL Stafford AM ([id number]) 1955 MDate Time Provider Qvytbnqpjp90/19/17 TANISHA VAZQUEZ [facility] During your visit today, we recorded the following information about you:Bebe Cunningham Ma 04/05/2017 7:36 AM SignedSee refill request 03/30, pt moving to out of [facility] , do you want to updatePCPAmbadriana Vazquez MD 04/05/2017 7:36 AM SignedThis note was created using Digiumriter.AfshinWill jonathon Traore Jamia is a 61 year old male.Review of SystemsObjectiveThere were no vitals taken for this visit.Physical ExamAssessment and PlanPlease remove me as PCP if he is [facility] and [facility].Thank you.Bebe Cunningham Ma 04/05/2017 7:36 AM SignedPCP updatedAllergies As of Date: 04/04/2017 Noted Allergy ReactionBACTRIM (SULFAMETHOXAZOLE-TRIMETH *12/15/2014 2 - RashDate Reviewed: 01/04/2017Reviewed by: Bebe Cunningham Ma - Fully AssessedReason for Visit: PHMA/Care Gap Outreach [6567]Prescriptions as of 04/04/2017 Sig: METOPROLOL SUCCINATE ER [...] polyps [Z86.010]Follow-up and Disposition History RecordedEncounter Number: [id number] Status:Closed by BEBE CUNNINGHAM MA on 04/05/17 Normal [facility] PROGRESSon 04-04-2017 PROGRESS HNO ID: [id number] Author: Bebe Cunningham Ma Service: (none) Author Type: (none) Type: Progress Notes Filed: 04/05/2017 7:36 AM Note Text: See refill request 03/30, pt moving to out of [facility] , do you want to update PCP Normal [facility] OBSOLETEon 03-30-2017 OBSOLETE Refill ([facility]) NATHANI[facility] BLANDON AM ([id number]) 1955 [facility] Zspacmgyzq45/14/17 TANISHA VAZQUEZ [facility] During your visit today, we recorded the following information about you:Bebe Cunningham Ma 03/30/2017 4:25 PM SignedPt due for yearly split in Shyam Cunningham Ma 03/31/2017 3:12 PM SignedPt states [place] are moving [place] he has apt to see a new [...] Status:Closed by RENETTA SAUCEDA CNP on 03/31/17 [facility] 02-13-2017 [facility] Nurse Visit ([facility]) NATHANIEL BLANDON AM ([id number]) 1955 MDate Time Provider Kcaaymikcq94/30/17 5:50 PM [facility] During your visit today, we recorded the [...] by JUNAID OFFICE MGR OTONIEL on 02/13/17 [facility] 02-13-2017 [facility] NATHANIEL BLANDON AM ([id number]) 1955 MDate Time Provider Lzhmypfcxl89/30/17 TANISHA VAZQUEZ During your visit today, we recorded the following information about you:Bebe Cunningham Ma 02/13/2017 2:35 PM SignedMessage from [facility]:Original authorizing provider: Ruben Iqbal would like a refill of the following medications:zolpidem (AMBIEN) 10 mg tab [Tanisha Vazquez MD]Preferred pharmacy: [id number] [place] [address] - [id number] - [phone] [facility] MELZIA [id number]:Bebe Cunningham Ma 02/13/2017 2:38 PM SignedScript pending [...] Status:Closed by TANISHA VAZQUEZ MD on 02/13/17 [facility] CNOVon 01-04-2017 CNOV Office Visit ([facility]) NATHANIEL BLANDON AM ([id number]) 1955 MDate Time Provider Department01/04/17 9:00 AM TANISHA VAZQUEZ [facility] During your visit today, we recorded the [...] 3V AP/LAT/OBL LTBAILEY Iqbalefhari Provider: TANISHA VAZQUEZ [[id number]]Allergies As of Date: 01/04/2017 Noted Allergy ReactionBACTRIM (SULFAMETHOXAZOLE-TRIMETH *12/15/2014 2 - RashDate Reviewed: 01/04/2017Reviewed by: Bebe Cunningham Ma - Fully AssessedReason for Visit: Acute Visit [896] Cmt: swollen toe x 2 weeksReason For Visit History RecordedPrimary Visit Diagnosis:Great toe pain, left [M79.675]Order(s):XR TOE AP/LAT/OBL LT [[id number]] Order #: [id number] FUTURE XR FOOT GENERAL 3V AP/LAT/OBL LT [[id number]] Order #: [id number] FUTUREPrescriptions as of 01/04/2017 Sig: METOPROLOL SUCCINATE [...] meals. Disc: Course of therapy completedEncounter Number: [id number] Status:Closed by TANISHA VAZQUEZ MD on 01/04/[address] [facility] Tele[facility] ([facility]) JAMIANATHANIEL AM ([id number]) 1955 MDate Time Provider Department01/04/17 TANISHA VAZQUEZ [facility] During your visit today, we recorded the [...] T TO ORTHOPAEDIC SURGERY [[id number]] Order #: [id number]: 1Prescriptions as of 01/04/2017 Sig: METOPROLOL SUCCINATE [...] by TANISHA VAZQUEZ MD on 01/04/17 Normal [facility] PROGRESSon 01-04-2017 PROGRESS HNO ID: [id number] thor: Jaclyn Lowe (Lisa) Ej: (none)Author Type: TechnicianType: Progress NotesFiled: 01/04/2017 9:36 AMNote Text: Radiology Service Progress NotePATIENT NAME: Charles AyalagMRN: [id number] OF SERVICE: January 04, 2017TIME: 9:36 AMPATIENT IDENTITY VERIFICATION COMPLETED USING TWO (2) METHODS: Patientconfirmed name verbally and Date of .PATIENT GENDER DATA: MalePATIENT RELEVANT IMPLANT DATA REVIEWED: Not ApplicableRADIOLOGY DEPARTMENT: General X-ray: Exam(s) Completed: Lower ExtremityX-Ray(s): Foot, Left and Wt. Bearing and Toes, Left:PERIPHERAL IV DATA: Not applicableSIGNED BY: Jaclyn Diaz, RRTSept2016 9:36 AM Normal [facility] PROGRESS HNO ID: [id number] thor: Tanisha [place]orne: (none)Author Type: PhysicianType: Progress [...] allergiesREVIEW OF SYSTEMS:As noted in HPIPHYSICAL EXAMINATION: [id number]: 172/93BP Site: Left ArmBP Position: SittingBP Cuff [...] GENERAL 3V AP/LAT/OBL LTTanisha Vazquez MD Normal [facility] XR FOOT 3V AP/LAT/OBL LTon 0 [...] phalanx with extension into the 1st IP joint.[employer] Income: SRINI Transcribe Date/Time: Jan 04 2017 10:28ADictated by : MALORIE NICHOLS MDThis examination was interpreted and the report reviewed and electronically signed by: MALORIE NICHOLS MD on Jan 04 2017 2:47PM [id number] Normal [facility] XR TOE 3V AP/LAT/OBL LTon XR [...] phalanx with extension into the 1st IP joint.[employer] Income: PSCB Transcribe Date/Time: Jan 04 2017 10:28ADictated by : AMLORIE NICHOLS MDThis examination was interpreted and the report reviewed and electronically signed by: MALORIE NICHOLS MD on Jan 04 2017 2:47PM [id number] Normal [facility] 12-11-2016 [facility] Telephone ([facility]) NATHANIEL BLANDON AM ([id number]) 1955 MDate Time Provider Department12/11/16 COY BLANCHARD [facility] During your visit today, we recorded the [...] Status:Closed by COY BLANCHARD [facility] on [facility] Office Visit ([facility]) NATHANIEL BLANDON AM ([id number]) 1955 [facility] Time Provider Department12/10/16 9:30 AM COY BLANCHARD [facility] During your visit today, we recorded the [...] ?F) (Oral) Wt 95.7 kg (211 lb) DlM640% BMI 30.71 kg/m2BMI 30.71 kg/(m2)General: alert and [...] MG TABLET- URIC ACID BLOODMattjose juan Blanchard MD[facility] [place] 12/10/2016 9:58 AM SignedPhlebotomy was performed per [...] 1 URIC ACID BLOOD [SQURIC] Order #: [id number] as of 12/10/2016 Sig: METOPROLOL SUCCINATE ER [...] of colonic polyps [Z86.010]Visit Notes:>> Prema Romano DC Sat Dec 10, 2016 9:57 AM Status: [...] to improve.Follow-up and Disposition History RecordedEncounter Number: [id number] Status:Closed by COY BLANCHARD MD on 12/10/16 [facility] PROGRESSon 12-10-2016 PROGRESS HNO ID: [id number] thor: Coy Blanchard, MDService: (none)Author Type: PhysicianType: Progress NotesFiled: 12/10/2016 9:59 AMNote Text:Charles Blandon is a 61 year old male here complaining of left toe pain.According to the patient, he states [facility]. Last [...] URIC ACID BLOODMattjose juan Blanchard MD Normal [facility] Uric Acidon 12-10-2016 Urate 8.2 mg/dL High 4.0-8.1 [facility] Comment on above: Performed By: #### U ANTHONY ####[facility] [address] [place], [place] [phone] CNOVon 11-01-2016 [facility] Office Visit ([facility]) NATHANIEL BLANDON AM ([id number]) 1955 MDate Time Provider Department11/01/16 9:30 AM ROYCE ARAIZA During your visit today, we recorded the following information about you: Pulse Blood pressure 57/minute 165/82Royce Araiza MD 11/01/2016 2:06 PM SignedDERMATOLOGY CONSULT FOR [facility] DATE: 11/01/2016PRIMARY CARE PHYSICIAN: MORENA Iqbal PROVIDER:Tanisha Vazquez MD[address] [place] [address]Consultation requested for an opinion regarding the evaluation and treatmentof skin cancer. My final impression and recommendations will be communicatedback to the requesting physician by way of the shared medical record or lettervia US mail.SUBJECTIVECHIEF COMPLAINT: BCCHISTORY OF PRESENT ILLNESSBIOPSY INFORMATION:1. Pathology Results: BCC Nodular and Ulcerated of the LEFT TEMPLEReport Number: Inside Pathology [id number] Performed: 08/10/2016Performed By: [facility] ProviderPast Treatment: No Past Treatment Tumor Type: PrimaryPresent For: unknown amount of month(s)Signs ANDamp; Symptoms: Non-healingPAST DERM HISTORY: No History of Skin CancerFAMILY HISTORY: No History of Skin CancerPAST MEDICAL HISTORYDiagnosis Date- Recinos's esophagus- GERD (gastroesophageal reflux disease)- HTN (hypertension)- Hx of colonic polyps- Osteoporosis- Umbilical herniaPAST SURGICAL [id number]: CHOLECYSTECTOMYNo date: COLONOSCOPY Comment: every 3 yearsNo [...] Nose, Chin, Lips, Ears, Periauricular Skin and Holiness)Pre-op Size: 0.6 cm - 1 cm, (0.7cm [...] and Past Histories independentlygathered by the clinical business support coordinator and the remaining scribed noteaccurately describes my personal service to the patient.SIGNATURE: Royce Araiza MD PATIENT NAME: Charles AyalagDATE: November 01, 2016 : 10:20 AM PAGER/CONTACT #:MOHS MICROGRAPHIC OPERATIVE REPORTSERVICE DATE: 11/01/2016SERVICE TIME: 9:10 AMLOCATION:[place] Inderjit TraoreJohn [facility] Center[address] [place] [address]REFERRING PROVIDER:Tanisha Vazquez MD[address] [facility] [id number] START TIME: 941PROCEDURE END TIME: URGEON: Dr. [...] Available at Bedside: Inside pathology report # [id number] Size: 0.6 cm - 1 cm, (0.7cm [...] surgery on a Primarytumor type from LEFT CAODAISM (location of tumor).Post-op Defect Size: 1.0 x [...] GIVEN WITH VERBAL UNDERSTANDING: YesPATIENT DISCHARGED TO LIVING SUPERVISOR/NAME: SelfFOLLOW UP: Return for wound care check in 6 weeksSee Dermatology yearly or as needed for FSE'sPRNThe documentation for this note was completed by Lis Serrano RN acting asscribe for Royce Araiza MD. 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 and the remaining scribed noteaccurately describes my [...] SurgeryDepartment to speak to a Nurse at [phone].After 5 pm, nights, and weekends, please call [phone] or and ask for the dermatology surgery fellow control room helper.Referring Provider: TANISHA VAZQUEZ [[id number]]Allergies As of Date: 11/01/2016 Noted Allergy ReactionBACTRIM [...] Department to speak to a Nurse at [phone]. After 5 pm, nights, and weekends, please call [phone] or and ask for the dermatology surgery fellow control room helper.Disposition: Return in about 6 weeks (around 12/13/2016) for WOUND CHECK.Follow-up and Disposition History RecordedEncounter Number: [id number] Status:Closed by ROYCE ARAIZA MD on 11/01/16 Normal [facility] PROGRESSon 11-01-2016 PROGRESS HNO ID: [id number] thor: Royce Lindoervice: (none)Author Type: PhysicianType: Progress NotesFiled: 11/01/2016 2:06 PMNote Text:DERMATOLOGY CONSULT FOR MOHSSERVICE DATE: 11/01/2016PRIMARY CARE PHYSICIAN: MORENA Iqbal PROVIDER:Tanisha Vazquez MD[address] [facility] [address]Aqjfanaizldn requested for an opinion regarding the evaluation andtreatment of skin cancer. My final impression and recommendations will becommunicated back to the requesting physician by way of the shared medicalrecord or letter via US mail.SUBJECTIVECHIEF COMPLAINT: BCCHISTORY OF PRESENT ILLNESSBIOPSY INFORMATION:1. Pathology Results: BCC Nodular and Ulcerated of the LEFT TEMPLEReport Number: Inside Pathology [id number] Performed: 08/10/2016Performed By: [facility] ProviderPast Treatment: No Past Treatment Tumor Type: PrimaryPresent For: unknown amount of month(s)Signs AND Symptoms: Non-healingPAST DERM HISTORY: No History of Skin CancerFAMILY HISTORY: No History of Skin CancerPAST MEDICAL HISTORYDiagnosis Date- Recinos's esophagus- GERD (gastroesophageal reflux disease)- HTN (hypertension)- Hx of colonic polyps- Osteoporosis- Umbilical herniaPAST SURGICAL [id number]: CHOLECYSTECTOMYNo date: COLONOSCOPY Comment: every 3 yearsNo [...] Eyebrows, Nose, Chin, Lips, Ears, Periauricular Skinand Holiness)Pre-op Size: 0.6 cm - 1 cm, (0.7cm [...] Lis Serrano RN acting asscribe for Royce Aariza MD. November 01, 2016 10:23 AM.I agree with the Chief Complaint, ROS, and Past Histories independentlygathered by the clinical business support coordinator and the remaining scribed noteaccurately describes my personal service to the patient.SIGNATURE: Royce Araiza MD PATIENT NAME: Charles AyalagDATE: November 01, 2016 : 10:20 AM PAGER/CONTACT #:MOHS MICROGRAPHIC OPERATIVE REPORTSERVICE DATE: 11/01/2016SERVICE TIME: 9:10 AMLOCATION:Celine TraoreJohn [facility] Center[address] [place], [place] [address]USQNKZDAR PROVIDER:Tanisha Vazquez MD[address] [facility] [id number] START TIME: 941PROCEDURE END TIME: URGEON: Dr. [...] Available at Bedside: Inside pathology report # [id number] Size: 0.6 cm - 1 cm, (0.7cm X 0.8cm)Lymphadenopathy: NoneIndication for Mohs: Anatomic Location where lesion is prone to recur,Type of tumor, Age of patient and Ill-defined bordersLocation: Area H: (Mask Areas of the Face - Includes Central Face,Eyelids, Inner/Outer [place], Eyebrows, Nose, Chin, Lips, Ears,Periauricular Skin and Holiness)Preparation: Povidone-iodineLAYER AThe patient was positioned, prepped with [...] surgery on aPrimary tumor type from LEFT CAODAISM (location of tumor).Post-op Defect Size: 1.0 x [...] GIVEN WITH VERBAL UNDERSTANDING: YesPATIENT DISCHARGED TO LIVING SUPERVISOR/NAME: SelfFOLLOW UP: Return for wound care check in 6 weeksSee Dermatology yearly or as needed for FSE'sPRNThe documentation for this note was completed by Lis Serrano RN acting asscribe for Royce Araiza MD. 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 and the remaining scribed noteaccurately describes my personal service to the patient.SIGNATURE: Royce Araiza MD PATIENT NAME: Charles AyalagDATE: November 01, 2016 : 9:10 AM PAGER/CONTACT #: Sammy [facility] CNNURSEsona 10-17-2016 [facility] Nurse Visit ([facility]) JAMIANATHANIEL Stafford AM ([id number]) 1955 MDate Time Provider Department10/17/16 7:00 AM [facility] During your visit today, we recorded the following information about you:Constance Mancuso Patient Services Representative 10/17/2016 1:46 PM SignedPhlebotomy was performed per the order of Tanisha Vazquez M.D.., accessing leftantecubital vein.Needle removed intact. Dressing secured with tape.Patient denies discomfort, dizziness, light-headedness, or weakness and leftthe office ambulatory..Referring Provider: TANISHA VAZQUEZ [[id number]]Allergies As of Date: 10/17/2016 Noted Allergy ReactionBACTRIM (SULFAMETHOXAZOLE-TRIMETH *12/15/2014 2 - RashDate Reviewed: 08/10/2016Reviewed by: Bebe Cunningham Ma - Fully AssessedVisit Diagnoses:Abnormal LFTs [R79.89] Elevated fasting blood sugar [R73.01]Order(s):COMP METABOLIC PANEL [SQCMP] Order #: [id number] HGB A1C [WNJZL2V] Order #: [id number] as of 10/17/2016 Sig: METOPROLOL SUCCINATE ER [...] of colonic polyps [Z86.010]Visit Notes:>> Constance Mancuso Patient Services Representative MonOct 17, 2016 1:42 PM Status: SignedPhlebotomy was performed per the order of Tanisha Vazquez M.D.., accessingleft antecubital vein.Needle removed intact. Dressing secured with tape.Patient denies discomfort, dizziness, light-headedness, or weakness andleft the office ambulatory.. Status:Closed by CONSTANCE DE LA ROSA on 10/17/16 Normal [facility] Comp Metabolic Panelon 10-17 Alanine aminotransferase (ALT) 38 U/L Normal 10-54 [facility] Comment on above: Performed By: #### C MP, HBA1C ####[address] [phone] Albumin 4.1 g/dL Normal 3.9-4.9 [facility] Comment on above: Performed By: #### C MP, HBA1C ####[facility] [place], [place] [phone] Alkaline phosphatase (ALP) 54 U/L Normal 36-108 [facility] Comment on above: Performed By: #### C MP, HBA1C ####[place] [address] [place], [place] [phone] Anion gap 20 mmol/L High 9-18 [facility] Comment on above: Performed By: #### C MP, HBA1C ####[address] [phone] Aspartate aminotransferase (AST) 43 U/L High 14-40 [facility] Comment on above: Performed By: #### C MP, HBA1C ####[place] [address] [address] [phone] Bilirubin (total) 0.3 mg/dL Normal 0.2-1.3 [facility] Comment on above: Performed By: #### C MP, HBA1C ####[place] [address] [address] [phone] Calcium 9.5 mg/dL Normal 8.5-10.2 [facility] Comment on above: Performed By: #### C MP, HBA1C ####[place] [address] [place] [phone] Chloride 101 mmol/L Normal 97-105 [facility] Comment on above: Performed By: #### C MP, HBA1C ####[place] [address] [address] [phone] CO2 23 mmol/L Normal 22-30 [facility] Comment on above: Performed By: #### C MP, HBA1C ####[place] [address] [address] [phone] Creatinine 1.02 mg/dL Normal 0.73-1.22 [facility] Comment on above: Performed By: #### C MP, HBA1C ####[place] [address] [address] [phone] eGFR (non-black) mL/min/{1.73_m2} Normal [facility] Comment on above: Performed By: #### C MP, HBA1C ####[place] [address] [address] [phone] Result Comment: eGFR (Estimated GFR) Units of [...] Glucose mass conc 90 mg/dL Normal 74-99 [facility] Comment on above: Result Comment: The [place] Diabetes Association (ADA) provides guidance for cutoff [...] Standards of Medical Care in Diabetes 2016, [place] Diabetes Association. Diabetes Care. 2016.39(Suppl 1). Performed By: #### C MP, HBA1C ####[facility] [address] [place] [phone] Potassium molar conc 4.6 mmol/L Normal 3.7-5.1 [facility] Comment on above: Performed By: #### C MP, HBA1C ####[facility] [address] [place], [place] [phone] Protein 7.1 g/dL Normal 6.3-8.0 [facility] Comment on above: Performed By: #### C MP, HBA1C ####[facility] [address] [place], [place] [phone] Sodium 144 mmol/L Normal 136-144 [facility] Comment on above: Performed By: #### C MP, HBA1C ####[facility] [address] [place], [place] [phone] Urea nitrogen 18 mg/dL Normal 9-24 [facility] Comment on above: Performed By: #### C MP, HBA1C ####[facility] [place], [place] [phone] Hemoglobin A1con 10-17-2016 Glucose mass conc 120 mg/dL Normal [facility] Comment on above: Result Comment: eAG: (Estimated average glucose) is a calculated value from HgbA1c and is office services representative of the average blood glucose level in the last 2-3 month period. Performed By: #### C MP, HBA1C ####[place] [address] [place], [place] [phone] Hemoglobin A1c/Hemoglobin.total mass fraction (Bld) 5.8 % High 4.3-5.6 [facility] Comment on above: Result Comment: [place] Diabetes Association guidelines indicate that patients with HgbA1c in the range 5.7-6.4% are at increased risk for development of diabetes, and intervention by lifestyle modification may be beneficial. HgbA1c greater or equal to 6.5% is considered diagnostic of diabetes. Performed By: #### C MP, HBA1C ####[facility] [place], [place] [phone] Vital Signs Date Time Vital Sign Value Performing Clinician Facility 07-05-2023 08:58-0400 Body weight 94.85 kg II Rusty Delgado Work Phone: [facility] 07-05-2023 08:58-0400 Diastolic blood pressure 71 mm[Hg] II Rusty Delgado Work Phone: [facility] 07-05-2023 08:58-0400 Heart rate 88 /min II Rustyra Delgado Work Phone: [facility] 07-05-2023 08:58-0400 Systolic blood pressure 121 mm[Hg] II Rusty Delgado Work Phone: [facility] 06-13-2023 17:15-0500 Diastolic blood pressure 62 mm[Hg] II Rusty Delgado Work Phone: [facility] 06-13-2023 17:15-0500 Heart rate 72 /min II Rusty Delgado Work Phone: [facility] 06-13-2023 17:15-0500 Respiratory rate 20 /min II Rusty Delgado Work Phone: [facility] 06-13-2023 17:15-0500 SaO2% (BldA) [Mass fraction] 94 % II Rusty Delgado Work Phone: [facility] 06-13-2023 17:15-0500 Systolic blood pressure 101 mm[Hg] II Rusty Delgado Work Phone: [facility] 06-13-2023 13:38-0500 Body height 175.26 cm II Rusty Delgado Work Phone: [facility] 06-13-2023 13:38-0500 Body mass index (BMI) [Ratio] 31.1 kg/m2 II Rusty Delgado Work Phone: [facility] 06-13-2023 13:38-0500 Body weight 95.7 kg II Rusty Delgado Work Phone: [facility] 06-13-2023 12:05-0500 Body temperature 98.2 [degF] II Rusty Delgado Work Phone: [facility] 05-31-2023 15:07-0500 Body height 175.3 cm Janneth Itzkowitz DO Work Phone: [facility] 05-31-2023 15:07-0500 Body mass index (BMI) [Ratio] 32.05 kg/m2 Janneth Itzkowitz DO Work Phone: [facility] 05-31-2023 15:07-0500 Body weight 98.43 kg Janneth Itzkowitz DO Work Phone: [facility] 05-31-2023 15:07-0500 Diastolic blood pressure 72 mm[Hg] Janneth Itzkowitz DO Work Phone: [facility] 05-31-2023 15:07-0500 Systolic blood pressure 120 mm[Hg] Janneth Itzkowitz DO Work Phone: [facility] 05-23-2023 06:44-0500 Body height 175.26 cm II Rusty Delgado Work Phone: [facility] 05-23-2023 06:44-0500 Body weight 99.79 kg II Rusty Delgado Work Phone: [facility] 05-18-2023 14:04-0500 Body height 175.3 cm Janneth Itzkowitz DO Work Phone: [facility] 05-18-2023 14:04-0500 Body mass index (BMI) [Ratio] 32.78 kg/m2 Janneth Itzkowitz DO Work Phone: [facility] 05-18-2023 14:04-0500 Body weight 100.7 kg Janneth Itzkowitz DO Work Phone: [facility] 05-18-2023 14:04-0500 Diastolic blood pressure 74 mm[Hg] Janneth Itzkowitz DO Work Phone: [facility] 05-18-2023 14:04-0500 Systolic blood pressure 120 mm[Hg] Janneth Itzkowitz DO Work Phone: [facility] 04-12-2023 11:00-0500 Body height 175.26 cm Lorna Ortega Other [facility] 04-12-2023 11:00-0500 Body mass index (BMI) [Ratio] 33.22 kg/m2 Lorna Ortega Other [facility] Other 04-12-2023 11:00-0500 Body weight 102.06 kg Lorna Ortega Other [facility] Other 04-12-2023 11:00-0500 Body weight 102.05 kg II Rusty Delgado Work Phone: [facility] 04-12-2023 11:00-0500 Diastolic blood pressure 67 mm[Hg] Lorna Scovanner Other [facility] 04-12-2023 11:00-0500 Systolic blood pressure 135 mm[Hg] Lorna Scovanner Other [facility] 11-10-2022 11:00-0400 Body weight 99.79 kg Lorna Scovanner Other [facility] Other 11-10-2022 11:00-0400 Diastolic blood pressure 74 mm[Hg] Lorna Scovanner Other [facility] Other 11-10-2022 11:00-0400 Systolic blood pressure 127 mm[Hg] Lorna Scovanner Other [facility] Other 09-21-2022 08:49-0400 Diastolic blood pressure 78 mm[Hg] II Rusty Delgado Work Phone: [facility] 09-21-2022 08:49-0400 Heart rate 50 /min II Rusty Delgado Work Phone: [facility] 09-21-2022 08:49-0400 SaO2% (BldA) [Mass fraction] 99 % II Rusty Delgado Work Phone: [facility] 09-21-2022 08:49-0400 Systolic blood pressure 125 mm[Hg] II Rusty Delgado Work Phone: [facility] 09-21-2022 07:36-0400 Body height 175.26 cm II Rusty Delgado Work Phone: [facility] 09-21-2022 07:36-0400 Body temperature 98.5 [degF] II Rusty Delgado Work Phone: [facility] 09-21-2022 07:36-0400 Body weight 95.25 kg II Rusty Delgado Work Phone: [facility] 09-21-2022 07:36-0400 Respiratory rate 16 /min II Rusty Delgado Work Phone: [facility] Encounters Encounter Date Encounter Type Care Provider Facility Start: 01-18-2024 End: 01-18-2024 ambulatory IRA WALKER Not Available Start: 01-03-2024 End: 01-03-2024 ambulatory II Rusty Delgado Work Phone: [facility] Work Phone: Start: 01-03-2024 End: 01-03-2024 Departed Referred II Rusty Delgado Work Phone: [facility] Start: 12-27-2023 ambulatory [facility] Start: 12-27-2023 End: 12-27-2023 ambulatory [facility] Start: 12-13-2023 End: 12-13-2023 ambulatory FABY ECHEVARRIA Not Available Start: 12-12-2023 End: 12-12-2023 ambulatory II Rusty Delgado Work Phone: [facility] Work Phone: Start: 12-12-2023 End: 12-12-2023 Departed Referred II Rusty Delgado Work Phone: [facility] Start: 12-08-2023 End: 12-08-2023 ambulatory II Rusty Delgado Work Phone: [facility] Work Phone: Start: 12-08-2023 End: 12-08-2023 Departed Referred II Rusty Delgado Work Phone: [facility] Start: 12-07-2023 Non-patient / Non-visit II Rusty Delgado [facility] Work Phone: Start: 12-07-2023 End: 12-07-2023 ambulatory II Rusty Delgado Work Phone: [facility] Work Phone: Start: 12-07-2023 End: 12-07-2023 Departed Referred II Rusty Delgado Work Phone: [facility] Start: 11-27-2023 End: [facility] Start: 11-15-2023 End: 11-15-2023 ambulatory RUSTY DELGADO Not Available Start: 11-14-2023 End: 11-14-2023 ambulatory [facility] Start: 11-08-2023 End: 11-08-2023 ambulatory ROSALINO CYDNEY Not Available Start: 10-13-2023 ambulatory GENERIC RESEARCH [facility] Start: 10-13-2023 End: 10-13-2023 [facility] Start: 10-09-2023 End: 10-09-2023 ambulatory JANNETHRENEE VILLEGAS Not Available Start: 10-03-2023 End: 10-03-2023 ambulatory II Rusty Delgado Work Phone: [facility] Work Phone: Start: 10-03-2023 End: 10-03-2023 Departed Referred II Rusty Delgado Work Phone: [facility] Start: 10-02-2023 End: 10-02-2023 ambulatory LYNDSEY PATEL Not Available Start: 09-25-2023 End: 09-25-2023 ambulatory [facility] Start: 09-15-2023 End: 09-15-2023 ambulatory WARD BENEDICT Not Available Start: 09-05-2023 End: 09-05-2023 ambulatory WARD BENEDICT Not Available Start: 08-30-2023 End: 08-30-2023 ambulatory WARD BENEDICT Not Available Start: 08-22-2023 End: 08-22-2023 ambulatory [facility] Start: 08-07-2023 End: 08-07-2023 ambulatory ARIAS JESUS [facility] Start: 07-18-2023 End: 07-18-2023 ambulatory FABY Syed WALE Not Available Start: 07-12-2023 End: 07-13-2023 ambulatory Janneth H Itzkowitz Facility:[facility] Start: 07-12-2023 End: 07-12-2023 Patient encounter procedure Jourdan ARRIAZA [facility] Start: 07-05-2023 End: 07-05-2023 ambulatory II Rusty Delgado Work Phone: [facility] Work Phone: Start: 07-05-2023 End: 07-05-2023 Patient encounter procedure II Rusty Delgado Work Phone: [facility] Work Phone: Start: 06-29-2023 End: 06-29-2023 ambulatory JANNETH H ITZKOWITZ Not Available Start: 06-23-2023 ambulatory Janneth Itzkowitz Facil ity:[facility] Start: 06-22-2023 End: 06-22-2023 ambulatory JANNETH H ITZKOWITZ Not Available Start: 06-13-2023 End: 06-13-2023 Admission to same day surgery center II Rusty Delgado Work Phone: [facility] [place] Start: 06-13-2023 End: 06-13-2023 ambulatory Janneth Itzkowitz Facility:[facility] Start: 06-02-2023 End: 06-02-2023 Patient encounter procedure II Rusty Delgado Work Phone: [facility] Work Phone: Start: 06-02-2023 End: 06-02-2023 ambulatory II Rusty Delgado Work Phone: [facility] Work Phone: Start: 05-31-2023 End: 05-31-2023 Office outpatient visit 25 minutes Janneth H Itzkowitz DO Work Phone: [employer] Comment on above: Fissure in ano (Prim chinmay Dx) Start: 05-31-2023 End: 05-31-2023 ambulatory JANNETH H ITZKOWITZ Not Available Start: 05-23-2023 End: 05-23-2023 Admission to same day surgery center II Rusty Delgado Work Phone: [facility] Work Phone: Start: 05-23-2023 End: 05-23-2023 ambulatory Rusty Delgado Facility:[facility] Start: 05-18-2023 End: 05-18-2023 Office outpatient new 45 minutes Janneth H Itzkowitz DO Work Phone: [employer] Comment on above: Fissure in ano Start: 05-18-2023 End: 05-18-2023 ambulatory JANNETH H ITZKOWITZ Not Available Start: 05-11-2023 End: 05-11-2023 ambulatory Lorna Ortega Other [employer] Other Start: 05-11-2023 Office outpatient visit 15 minutes Lorna Ortega [facility] Start: 04-28-2023 End: 04-28-2023 ambulatory Lorna Ortega Other [employer] Other Start: 04-28-2023 Telephone encounter Lorna Coates [facility] Start: 04-27-2023 End: 04-27-2023 ambulatory Lorna Ortega Other [employer] Other Start: 04-27-2023 Telephone encounter Lorna Coates [facility] Start: 04-26-2023 End: 04-26-2023 Patient encounter procedure II Rusty Delgado Work Phone: [facility] Work Phone: Start: 04-26-2023 End: 04-26-2023 ambulatory Rusty Delgado Facility:[facility] Start: 04-13-2023 End: 04-13-2023 ambulatory Lorna Ortega Other [employer] Other Start: 04-13-2023 Telephone encounter Lorna Coates [facility] Start: 04-12-2023 Office outpatient visit 25 minutes Lorna Ortega [facility] Start: 04-12-2023 Telephone encounter Lorna Coates [facility] Start: 04-12-2023 End: 04-12-2023 Patient encounter procedure II Rusty Delgado Work Phone: [facility] Work Phone: Start: 04-12-2023 End: 04-12-2023 ambulatory II Rusty Delgado Work Phone: [facility] [employer] Other Start: 04-12-2023 End: 04-12-2023 Patient encounter procedure II Rusty Delgado Work Phone: [facility] Work Phone: Start: 04-03-2023 End: 04-03-2023 ambulatory Lorna Ortega Other [employer] Other Start: 04-03-2023 Telephone encounter Lorna Coates [facility] Start: 03-30-2023 End: 03-30-2023 ambulatory RUSTY DELGADO Not Available Start: 03-24-2023 End: 03-24-2023 ambulatory RUSTY DELGADO Not Available Start: 03-24-2023 End: 03-24-2023 ambulatory RUSTY DELGADO Not Available Start: 11-18-2022 End: 11-18-2022 ambulatory Lorna Ortega Other [employer] Other Start: 11-18-2022 Telephone encounter Lorna Coates [facility] Start: 11-15-2022 End: 11-15-2022 ambulatory II Rusty Delgado Work Phone: [facility] Work Phone: Start: 11-15-2022 End: 11-15-2022 Patient encounter procedure II Rusty Delgado Work Phone: [facility] [place] Work Phone: Start: 11-10-2022 End: 11-10-2022 ambulatory Lorna Ortega Other [facility] [employer] Other Start: 11-10-2022 Office outpatient visit 15 minutes Lorna JENKINS [facility] Start: 11-03-2022 End: 11-03-2022 Patient encounter procedure II Rusty Delgado Work Phone: [facility] Work Phone: Start: 10-26-2022 End: 10-26-2022 ambulatory II Rusty Delgado Work Phone: [facility] Work Phone: Start: 10-26-2022 End: 10-26-2022 Departed Referred II Rusty Delgado Work Phone: [facility] Work Phone: Start: 10-26-2022 End: 10-26-2022 Patient encounter procedure II Rusty Delgado Work Phone: [facility] Work Phone: Start: 09-21-2022 End: 09-21-2022 Admission to same day surgery center II Rusty Delgado Work Phone: [facility] Work Phone: Start: 09-21-2022 End: 09-21-2022 ambulatory II Rusty Delgado Work Phone: [facility] Work Phone: Start: 02-13-2017 End: 02-13-2017 Ambulatory TANISHA VAZQUZE [facility] Start: 01-04-2017 End: 01-04-2017 Ambulatory TANISHA VAZQUEZ [facility] Hayder bailon Start: 12-10-2016 End: 12-10-2016 Ambulatory COY BLANCHARD [facility] Start: 11-01-2016 End: 11-02-2016 Ambulatory ROYCE ARAIZA [facility] Start: 10-17-2016 End: 10-17-2016 Ambulatory TANISHA CHEMA [facility] Procedures Date Procedure Procedure Detail [...] 05-12-2032 Screening for malignant neoplasm of colon [facility] Start: 05-26-2024 Urine screening for protein Diabetes: Urine Protein Screening [facility] Start: 05-24-2024 Glaucoma screening Diabetes: Retinopathy Screening [facility] Start: 08-24-2023 Hemoglobin A1c measurement Diabetes: Hemoglobin A1C [facility] Start: 06-13-2023 [facility] Start: 06-13-2023 [facility] Start: 06-13-2023 End: 06-13-2023 Patient encounter procedure 06/13/2023 1:30 PM EST Procedure Visit [facility] Janneth Barrientos DO [address] [id number] [facility] Start: 06-09-2023 End: 06-09-2023 Patient encounter procedure 06/09/2023 10:30 AM EST Office [facility] [address] [facility] [address] [place] [id number] Janneth Villegas, [address] [facility] [address] [place] [address] [facility] Start: 05-26-2023 Medicare Annual Wellness (AWV) Medicare Annual Wellness (AWV) [facility] Start: 05-23-2023 [facility] Start: 02-23-2023 Hemoglobin A1c measurement Diabetes: Hemoglobin A1C [facility] Start: 11-03-2022 [facility] Start: 11-03-2022 Ultrasound elastography of liver [facility] [employer] (Not Applicable) [facility] Start: 10-26-2022 Ultrasound elastography of liver [facility] (Not Applicable) [facility] Start: 10-26-2022 [facility] Start: 09-21-2022 Hepatitis B core antibody measurement [facility] Start: 09-21-2022 End: 09-21-2022 [facility] Start: 1972 Urine screening for protein Diabetes: Urine Protein Screening [facility] Start: 08-03-1959 Pneumococcal Vaccine: 65+ Years (1 - PCV) Pneumococcal Vaccine: 65+ Years (1 - PCV) [facility] Start: 1955 Medicare Annual Wellness (AWV) Medicare Annual Wellness (AWV) [facility] Start: 1955 Screening for malignant neoplasm of colon [facility] Actin smooth muscle IgG Ab [Units/volume] in Serum [facility] Alpha 1 antitrypsin [Mass/volume] in Serum or Plasma [facility] Alpha 1 antitrypsin phenotyping [Identifier] in Serum or Plasma by Immunofixation [facility] Cefuroxime free [Mass/volume] in Serum or Plasma [facility] Ceruloplasmin [Mass/volume] in Serum or Plasma [facility] Hepatitis B virus galindo rface Ab [Presence] in Serum [facility] Hepatitis B virus galindo rface Ag [Presence] in Serum or Plasma by Immunoassay [facility] Hepatitis C virus Ig G Ab [Presence] in Serum or Plasma by Immunoassay [facility] Mitochondria M2 IgG Ab [Units/volume] in Serum [facility] Patient referral [facility] Work Phone: Immunizations Immunization Date Immunization Notes Care Provider [facility] 01-24-2023 influenza virus vaccine, unspecified formulation Jourdan ARRIAZA [facility] 04-30-2022 zoster vaccine recombinant Janneth Itzkowitz DO Work Phone: [facility] 03-22-2022 tetanus toxoid, reduced diphtheria toxoid, and acellular pertussis vaccine, adsorbed Janneth Itzkowitz DO Work Phone: [facility] 02-01-2022 influenza virus vaccine, unspecified formulation Jourdan [employer] [facility] 02-01-2022 influenza, high dose seasonal, preservative-free Janneth Itzkowitz DO Work Phone: [facility] 02-17-2021 influenza virus vaccine, unspecified formulation [employer] [facility] 02-17-2021 influenza, high dose seasonal, preservative-free Janneth Itzkowitz DO Work Phone: [facility] 02-13-2017 influenza virus vaccine, unspecified formulation Jourdan [employer] [facility] 02-13-2017 influenza, injectabl e, quadrivalent, contains preservative Janneth Itzkowitz DO Work Phone: [facility] 02-01-2016 influenza virus vaccine, unspecified formulation [employer] [facility] 02-01-2016 influenza, seasonal, injectable Janneth Itzkowitz DO Work Phone: [facility] 03-24-2015 zoster vaccine, live Janneth Itzkowitz DO Work Phone: [facility] 02-10-2015 influenza virus vaccine, unspecified formulation Jourdanharsh ARRIAZA [facility] 02-10-2015 influenza, seasonal, injectable Janneth Itzkowitz DO Work Phone: [facility] 01-14-2014 influenza virus vaccine, unspecified formulation Jourdanharsh ARRIAZA [facility] 01-14-2014 influenza, seasonal, injectable Janneth Itzkowitz DO Work Phone: [facility] 01-23-2013 influenza virus vaccine, unspecified formulation Janneth Itzkowitz DO Work Phone: [facility] Payers Date Payer Category Payer Self-pay 2022 Medicare [employer]NA MEDICARE A DVANTAGE AETNA MEDICARE REPLACEMENT [id number] 2022-Present [address] [place] [address] [id number] 2002 Private Health Insurance [id number] 1953 Unknown [id number] 2.16.840.1.397762.3.579.2. 727 1953 Unknown [id number] 2.16.840.1.025747.3.579.2. 1259 1953 Unknown [id number] 2.16.840.1.201544.3.579.2. 1259 1953 Unknown [id number] 2.16.840.1.311994.3.579.2. 1259 1953 Unknown [id number] 2.16.840.1.643677.3.579.2. 1258 1953 Unknown [id number] 2.16.840.1.140218.3.579.2. 1258 1953 Unknown [id number] 2.16.840.1.909874.3.579.2. 1258 1953 Unknown [id number] 2.16.840.1.992285.3.579.2. 1258 1953 Unknown [id number] 2.16.840.1.943228.3.579.2. 1258 1953 Unknown [id number] 2..840.1.113413.3.579.2. 1258 1953 Unknown [id number] 2.16.840.1.505374.3.579.2. 1258 1953 Unknown [id number] 2..840.1.872540.3.579.2. 1258 1953 Unknown [id number] 2..840.1.389924.3.579.2. 1258 1953 Unknown [id number] 2.16.840.1.756801.3.579.2. 1258 1953 Unknown [id number] 2.16.840.1.596359.3.579.2. 1258 1953 Unknown [id number] 2.16.840.1.367541.3.579.2. 1258 1953 Unknown [id number] 2.16.840.1.770766.3.579.2. 1258 1953 Unknown [id number] 2.16.840.1.944836.3.579.2. 1259 Unknown [id number] 2.16.840.1.872990.3.579.2. 531 Unknown [id number] 2.16.840.1.694543.3.579.2. 531 Unknown [id number] 2.16.840.1.824174.3.579.2. 531 Unknown [id number] 2.16.840.1.800602.3.579.2. 531 Unknown [id number] 2.16.840.1.602794.3.579.2. 531 Unknown [id number] 2.16.840.1.541308.3.579.2. 531 Unknown [id number] 2.16.840.1.991744.3.579.2. 531 Unknown [id number] 2.16.840.1.073338.3.579.2. 531 Unknown [id number] 2.16.840.1.276413.3.579.2. 531 Social History Date Type Detail Facility Start: 09-21-2022 End: 06-13-2023 Tobacco smoking status NHIS Ex-smoker (finding) [facility] Start: 1955 Sex Assigned At Male F [facility] Start: 05-18-2023 End: 05-31-2023 Sex Assigned At [facility] End: 04-17-1989 History of tobacco use Current smoker [facility] End: 04-17-1989 History of tobacco use Cigarette Smoker [facility] Start: 11-17-2022 Tobacco use and exposure Smokeless tobacco non-user [facility] Start: 05-18-2023 End: 05-31-2023 History of Social function [facility] Start: 1955 Sex Assigned At Not on file N [facility] Tobacco smoking status No Smokin g Status Entered [facility] Josue Goals Date Patient Goal Desired Activity /State Clinical Notes 09-21-2022 to 12-29-2023 Janneth Villegas, DO - 05/31/2023 3:15 PM ESTJanneth Villegas, DO - 05/18/2023 2:00 PM EST [...] as previously instructed, and they acknowledged this. [facility] 12-27-2023 Note Attestation signed by Irena Johnson [...] were changed during his recent hospitalization at [facility], therefore, will repeat labs Will change to [...] that the patient was recently hospitalized at [facility] for worsening ascites and shortness of breath. She reports that patient has fluid removed via thoracentesis and paracentesis. He has not undergone paracentesis since his hospital stay. She reports that d (more content not included)... [facility] 11-27-2023 Note Patient: Charles hernandez Procedure Summary Date: 11/27/23 Room / Location: [facility] Invasive [facility] Anesthesia Start: 1041 Anesthesia Stop: 1107 Procedure: [...] per anesthesia protocol. No notable events documented. [facility] 11-27-2023 Note Patient: Charles hernandez Procedure Summary Date: 11/27/23 Room / Location: [facility] Anesthesia Start: 1041 Anesthesia Stop: Procedure: EGD Diagnosis: Alcoholic cirrhosis of liver with ascites (CMS/HCC) Scheduled Providers: Irena Johnson MD; Jl Kent MD; VALDEAMR Heath Responsible Provider: Jl Kent MD Anesthesia Type: MAC ASA Status: 3 Anesthesia Post Transport [facility]: room air Patient Monitor: direct observation Transport: uneventful Patient condition is: stable [facility] 11-27-2023 Note Patient: Charles hernandez Procedure Information Date/Time: 11/27/23 1130 Scheduled providers: Irena Johnson MD; Jl Kent MD; VALDEMAR Heath Procedure: EGD Location: [facility] Relevant Problems Cardio Denies chest [...] Plan discussed with CAA. Additional Equipment Requests [facility] 11-08-2023 Note Refills provided [facility] 10-16-2023 Note Emma MALDONADO approved through 04/10/2024, previous approval. Pt has not been on lactulose, prescribed lactulose on the same day as Xifaxan. Based on discussion with annual income for 2 people in the household is $52,000. Should qualify for PAP. Will email provider and pt portions. Carmella Olivo, PharmD, BCACP 10/16/23 1:56 PM [facility] [phone] [facility] 10-16-2023 Note Patient said the del george has been scheduled and is on its way. Aware they have to call [facility] every time they need a refill. Have no further questions. Will no longer follow up. Darnell Razo [facility] 10/25/23 10:27 AM [facility] 10-16-2023 Note Patient assistance a pplication approved through [employer]. Approval good through 04/16/2024. Patient Case ID/Approval Number: [id number]. Notified patient and will follow up to confirm shipment/delivery is scheduled. Yamini Camarillo [facility] 10/23/23 10:11 AM [facility] 10-16-2023 Note Have received pt. Po rtion of PAP form still waiting on prescribers portion. Re faxed the forms over to GI. Send PAP forms in once prescribers portion is signed. Darnell Razo [facility] 10/20/23 1:20 PM [facility] 10-13-2023 Note I called and discuss ed the results of his labwork with the patient. With his sodium level being slightly below baseline, we will have him repeat his labs prior to EGD tomorrow. He expressed clear understanding. If he continues to have low sodium, we may need to consider holding diuretics. [facility] 10-13-2023 Note Attestation signed by Irena Johnson [...] function of stomach (more content not included)... [facility] 09-14-[address] ordered to rule o ut chronic mesenteric ischemia [facility] 08-07-2023 Note Attestation signed by Arias Jesus [...] % gel, Apply topically., Disp: , Rfl: polzvixrd-ynhpzu-vrkhjl-petrol 5-0.25-14.4-15 % cream, APPLY TO AFFECTED AREA [...] Rfl: zolpidem (A (more content not included)... [facility] 05-31-2023 History of Present illness Narrative Images [...] reflux disease) History of colon polyps Hypertension ([facility] Social History Tobacco Use Smoking status: [...] has been scheduled. documented in this encounter [facility] 05-18-2023 History of Present illness Narrative Images from the original note were not included. Charles Blandon 1955 Charles Blandon is a 67 y.o. male presents with chief complaint of painful hemorrhoid HPI: HPI Huber states he has a hemorrhoid for the last 5-6 weeks. He was seen by Dr. Carroll's [facility] ATTENDANT who referred him to our office. Huber [...] weeks for recheck documented in this encounter [facility] 05-11-2023 Evaluation note Encounter Date Diagnosis Assessment Notes Apr, Nausea (ICD-10 - R11.0) Apr, Cirrhosis of liver (ICD-10 - K74.60) Apr, Early satiety (ICD-10 - R68.81) [facility] Other 12-28-2023 Evaluation note* Encounter Date Diagnosis Assessment Notes Treatment Notes Treatment Clinical Notes Mar, Lower abdominal pain (ICD-10 - R10.30) [facility] Other 12-27-2023 Evaluation note* Encounter Date Diagnosis [...] - R68.81) Mar, Bloating (ICD-10 - R14.0) [facility] Other 07-27-2023 Evaluation note* Encounter Date Diagnosis [...] a time. 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 documented in this encounter [facility]* Diagnosis Onset Date Resolution Status Cirrhosis acute Dyspepsia and disorder of function of stomach acute Emesis acute Esophageal dysmotility acute [facility] Work Phone: History and physical note Author Lex Carroll [facility] September 21, 2022 8:04am Note Date/Time September 21, 2022 8:04a m [facility] [address] [place] [address] Gastroenterology H&P Signed Patient: Charles Blandon MR#: [id number] : 1955 Acct:[id number] Age/Sex: 67 / M Adm Date: 3 Loc: Room: Type: [facility] Attending Dr: Lex Carroll MD Copies [...] by Lex Carroll MD> 09/21/22 0804 [facility] Work Phone: History general Narrative - Reported* Type Description Date Medical History hypertension Medical History GERD Surgical History gallbladder Surgical History elbow surgery Surgical History mesh placement [facility] Other Hospital Discharge instructions Additional Instructions DISCHARGE [...] problems. -Follow up with PCP. -Office number [phone].[facility] Work Phone: Hospital Discharge instructions No data available for this section [facility] Progress note No data available for this section [facility] Summary Purpose Family History No Family [...] section and content) DATE CREATED AUTHOR 10/10/2017 [facility] DATE CREATED AUTHOR AUTHOR'S ORGANIZ ATION 07/14/2023 [facility] DATE CREATED AUTHOR AUTHOR'S ORGANIZ ATION 01/05/2024 [facility] DATE CREATED AUTHOR AUTHOR'S ORGANIZ ATION 01/18/2024 [facility] DATE CREATED AUTHOR AUTHOR'S ORGANIZ ATION 01/20/2024 [facility] EPIC Care Teams (unrecognized sec [...] Active Lorna Ortega APRN Attending Provider 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 Relationship Specialty Start Date End Date Rusty Delgado MD [address] [facility] [place] [address] [place] [address] PCP - [employer] 04/17/22 Rusty Delgado MD [address] [facility] [place] [address] [place] [address] PCP - General Internal Medicine 11/23/22 [employer] Tunnel Engineer Relationship Specialty Start Date End Date Rusty Delgado MD [address] [facility] [place] [address] [place] [address] PCP - [employer] 04/17/22 Rusty Delgado MD [address] [place] [address] [place] [address] PCP - General Internal Medicine 11/23/22 Team [...] Contact General Surgery Diagnoses Unspecified hemorrhoids Procedures [place] OFFICE/OUTPATIENT [facility] MDM 60 MINUTES Lorna Ortega MD [address] [facility] [address] [place] [address] [facility] [address] [facility] [address] [place] [address] Referral ID Status Reason Start Date Expiration Date V isits Requested Visits Authorized [id number] Closed Specialty Services Required 05/12/2023 11/08/2023 1 [...] BE BASED ON THE PRIMARY CLINICAL RECORDS. [facility] [employer] provides no warranty or guarantee of the accuracy or completeness of information in this document.
== END 2024-01-24 12:17 | disposition home or self-care (01) ==
LOC: MRI 12:16
PROVIDERS: PCP Internal Medicine
DX: K70.31 Alcoholic cirrhosis of liver with ascites (principal); J90 Pleural effusion, not elsewhere classified
CPT/HCPCS: 74183

== ENCOUNTER 2024-02-12 13:58 | Outpatient (OUT) | payer MEDICARE, SELFPAY ==
--- OUTSIDE RECORDS SUMMARY | 2024-02-12 14:07 | XMS_ITS | CCD ---
Author Organization [facility] CliniSymn Care Team Providers Care Scruff Worker Name Role Phone TAYLOR, TANISHA Unavailable Unavailable TEODORA, ROYCE Unavailable Unavailable TAYLOR, TANISHA Unavailable Unavailable COY BLANCHARD Unavailable Unavailable TAYLOR, TANISHA Unavailable Unavailable TAYLOR, TANISHA Unavailable Unavailable TAYLOR, TANISHA Unavailable Unavailable MD Lex Carroll Attending Provider [phone] JUDITH Delgado Primary Care Provider [phone] Lorna Ortega Unavailable TALA Ortega Attending Provider JUDITH Delgado Primary Care Provider [phone] TALA Ortega Attending Provider Rusty Delgado MD Unavailable [phone] Rusty Delgado MD Primary Care Provider [phone] MD Minh Griffith Attending Provider DO Janneth Villegas Attending Provider [phone] JUDITH Delgado Primary Care Provider [phone] TALA Ortega Attending Provider MD Minh Griffith Attending Provider DO Janneth Villegas Attending Provider RUSTY DELGADO Primary Care Physician Janneth Villegas Referring Unavailable Jourdan ARRIAZA Attending Unavailable JUDITH Delgado Primary Care Provider MD Ward Stern [facility]ending [facility], DO Devyn Attending Provider [facility], DO Devyn Attending Provider JUDITH Delgado Rusty Primary Care Provider MD Ward Stern Attending Provider MD Kin Hernandez V Attending Provider Rusty Delgado Primary Care Unavailable Lorna Ortega Admitting Unavailable Lorna Ortega Attending Unavailable Itzphilomena, Janneth Attending Unavailable Itzphilomena, Janneth Admitting Unavailable Rusty Delgado Primary Care Unavailable Rusty Delgado Primary Care Unavailable Minh Griffith Admitting Unavailabl e Minh Griffith Attending Unavailabl e Itzphilomena, Janneth Admitting Unavailable Itandrey, Janneth Attending Unavailable Rusty Delgado Primary Care Unavailable Rusty Delgado Primary Care Unavailable Ward Stern Admitting Unavailable Ward Stern Attending Unavailable Kin Hernandez V Admitting Unavailable Kin Hernandez V Attending Unavailable Ward Stern Admitting Unavailable Ward Stern Attending Unavailable Rusty Delgado Primary Care Unavailable [facility], Devyn Admitting Unavailable [facility] Unavailable Rusty Delgado Primary Care Unavailable Rusty Delgado Primary Care Unavailable Lorna Ortega Admitting Unavailable Lorna Ortega Attending Unavailable BAKARI, JANNETH H Attending Unavailable LORNA ORTEGA Referring Unavailable ITJANNETH SERNA H Attending Unavailable ITJANNETH SERNA H Attending Unavailable JANNETH VILLEGAS H Attending [...] WALKER Attending Unavailable DEVAUGHN SMITH Referring Unavailable RESEARCH, GENERIC Referring Unavailable ARAIS JESUS Referring Unavailable ARIAS JESUS Referring Unavailable IRENA JOHNSON Attending Unavailable IRENA JOHNSON Attending Unavailable ARIAS JESUS Attending Unavailable ARIAS JESUS Admitting Unavailable ARIAS JESUS Attending Unavailable ARIAS JESUS Referring Unavailable IRENA JOHNSON Admitting Unavailable IRENA JOHNSON Attending Unavailable IRENA JOHNSON Referring Unavailable Allergies Allergy Classification Reported Allergen(s) Allergy Type Date of Onset Reaction(s) Facility (1 source) sulfamethoxazole / trimethoprim; Translations: [SULFAMETHOXAZOLE-TR IMETHOPRIM] Drug Allergy [address] [facility] Repository Medications Current Medications Medication Drug [...] 0 Active baclofen 20 mg oral tablet (10 sources) gamma-Aminobutyric Acid-ergic Agonist Start: 07-05-2023 take 20 mg by mouth once daily at bedtime Baclofen Active 20 MG PO Daily at bedtime 30 July 05, 2023 12:00am baclofen (Liores al) 20 MG tablet Take by mouth 3 (three) times a day PRN Active calcium carbonate 1250 mg / cholecalciferol 125 unt oral tablet (11 sources) Vitamin D Start: 06-02-2023 take 1 tablet by mouth once daily Calcium Carb-Cholecalciferol (Calcium 500 + D) 500-3.125 MG-MCG tablet Take 1 tablet by mouth 1 (one) time each day 06/02/2023 Active carvedilol 3.125 mg oral tablet (2 sources) alpha-Adrenergic Nikunj, beta-Adrenergic Nikunj Start: 12-27-2023 End: 04-25-2024 take 1 tablet by mouth in the morning carvedilol (Coreg) 3.125 MG tablet Take 3.125 mg by mouth in the morning and 3.125 mg in the evening. Take with meals. 12/27/2023 04/25/2024 Active dicyclomine hydrochloride 20 mg oral tablet (8 [...] tablet (20 sources) Histamine-2 Receptor Antagonist Start: 04-12-2023 End: 07-05-2023 take 1 tablet by mouth in the morning famotidine (Pepcid) 40 MG tablet Take 40 mg by mouth in the morning and 40 mg before bedtime. 05/10/2023 Active Start: 11-10-2022 End: 05-18-2023 take 1 tablet by mouth at bedtime famotidine (Pepcid) 20 MG tablet Take 20 mg by mouth at bedtime. 0 11/10/2022 05/18/2023 Discontinued furosemide 40 mg oral tablet (20 sources) Loop Diuretic Start: 04-12-2023 take 1 tablet by mouth in the morning furosemide (Lasix) 40 MG tablet Take 1 tablet by mouth in the morning and 1 tablet before bedtime. 05/10/2023 Active ibuprofen 800 mg oral tablet (8 sources) Nonsteroidal Anti-inflammatory Drug Start: 06-02-2023 take 800 mg by mouth three times daily Ibuprofen Active 800 MG PO Three times daily June 02, 2023 1:00am ketorolac tromethamine 5 mg/ml ophthalmic solution (2 sources) Nonsteroidal Anti-inflammatory Drug, Cyclooxygenase Inhibitor Start: 01-18-2024 End: 02-17-2024 take 1 drop(s) into the eye(s) in the morning ketorolac (Acular) 0.5 % ophthalmic solution Indications: Age-related nuclear cataract of both eyes Administer 1 drop into affected eye(s) in the morning and 1 drop before bedtime. 5 mL 1 01/18/2024 02/17/2024 Active lactulose 667 mg/ml oral solution (2 sources) Osmotic Laxative Start: 01-16-2024 lactulose (Chronulac) 10 GM/15ML solution 01/16/2024 Active lansoprazole 30 mg delayed release oral capsule (10 sources) Proton Pump Inhibitor Start: 07-05-2023 take 30 mg by mouth twice daily Lansoprazole Active 30 MG PO Twice daily 60 July 05, 2023 12:00am lansoprazole (Pr evacid SoluTab) 30 MG disintegrating tablet Take 15 mg by mouth in the morning. Take before meals. Dissolve on tongue before swallowing particles; do not chew, cut, break, or swallow whole.. Active lisinopril 20 mg oral tablet (20 sources) Angiotensin Converting Enzyme Inhibitor Start: 09-19-2022 lisinopril 20 MG tablet 10/27/2023 Active magnesium oxide 400 mg oral tablet (3 sources) magnesium oxide (Mag-Ox) 400 MG tablet Take 500 mg by mouth in the morning. Active Multiple Vitamins-Minerals (Multi For Him) tablet (6 sources) Multiple Vitamins-Minerals (Multi For Him) tablet Daily. Active Multiple Vitamin s-Minerals (Multi For Him) tablet Daily. 0 Active Multivitamin (Daily Multi-Vitamin) tablet (8 sources) Start: 06-02-2023 take 1 tablet by mouth once daily Multivitamin (Daily Multi-Vitamin) tablet Active 1 TAB PO Daily June 02, 2023 1:00am Start: 06-02-2023 take 1 tablet by vlad th once daily Multivitamin (Daily Multi-Vitamin) tablet Active 1 TAB PO Daily June 02, 2023 12:00am ofloxacin 3 mg/ml ophthalmic solution (2 sources) Quinolone Antimicrobial Start: 01-18-2024 End: 01-19-2024 take 1 drop(s) into the eye(s) five times daily ofloxacin (Ocuflox) 0.3 % ophthalmic solution Indications: Age-related nuclear cataract of both eyes Administer 1 drop into the right eye 5 (five) times a day for 1 day Starting 1 day before surgery, continue after surgery as directed 5 mL 1 01/18/2024 01/19/2024 Active ondansetron 4 mg oral tablet (14 sources) Serotonin-3 Receptor Antagonist Start: 07-05-2023 take 4 mg by mouth three times daily Ondansetron Hcl Active 4 MG PO Three times daily July 05, 2023 9:32am Start: 07-05-2023 End: 07-05-2023 take 4 mg by mouth once daily Ondansetron Hcl Disconti nued 4 MG PO Daily July 05, 2023 12:00am July 05, 2023 9:32am prednisoLONE acetate 10 mg/ml ophthalmic suspension (2 sources) Corticosteroid Start: 01-18-2024 End: 02-01-2024 prednisoLONE acetate (Pred-Forte) 1 % ophthalmic suspension Indications: Age-related nuclear cataract of both eyes Administer 1 drop into both eyes in the morning and 1 drop at noon and 1 drop in the evening and 1 drop before bedtime. Do all this for 14 days. 5 mL 1 01/18/2024 02/01/2024 Active rifAXIMin 550 mg oral tablet (2 sources) Rifamycin Antibacterial Start: 10-26-2023 take 1 tablet by mouth in the morning rifAXIMin (Xifaxan) 550 MG tablet Take 550 mg by mouth in the morning and 550 mg in the evening. 10/26/2023 Active spironolactone 100 mg oral tablet (20 sources) Aldosterone Antagonist Start: 04-12-2023 take 1 tablet by mouth once daily spironolactone (Aldactone) 100 MG tablet TAKE 1 TABLET BY MOUTH EVERY DAY FOR 30 DAYS 05/10/2023 Active Completed/Discontinued Medications Medication Drug Class(es) Dates Sig (Normalized) Sig (Original) acetaminophen 325 mg / oxyCODONE hydrochloride 5 mg oral tablet (7 sources) Opioid Agonist Start: 06-13-2023 End: 07-05-2023 take 1 tablet by mouth every six hours Oxycodone-Acetami nophen (Percocet) 5-325 mg tablet Discontinued 1 TAB PO Q6H 28 7 June 13, 2023 July 05, 2023 9:01am [id number] 333-133-5 MG per tablet (1 source) End: 05-18-2023 calcium-magnesium -zinc 333-133-5 MG per tablet Take 1 tablet by mouth in the morning and 1 tablet at noon and 1 tablet in the evening. Take with meals. 0 05/18/2023 Discontinued hydroCHLOROthiazide 25 mg / triamterene 37.5 mg oral capsule (20 sources) Potassium-spari ng Diuretic, Thiazide Diuretic Start: 06-13-2023 End: 07-05-2023 Triamterene-[place] chlorothiazid Discontinued CAP June 13, 2023 1:00am July 05, 2023 9:01am Start: 03-16-2023 take 1 capsule by mouth once daily in the morning as needed triamterene-hydroCHLOROthiazide (Dyazide ) 37.5-25 MG capsule TAKE 1 CAPSULE BY MOUTH EVERY MORNING NEEDED FOR LEG SWELLING 03/16/2023 Active Start: 09-19-2022 End: 06-02-2023 Triamterene-Hydrochlorothiaz id Discontinued [...] failure, unspecified] Onset: 4 Episodic Alcohol-related disorders (5 sources) Alcoholic cirrhosis; Translations: [Alcoholic cirrhosis of liver with ascites] Onset: 4 12-13-2023 Chronic Aortic; peripheral; and visceral artery aneurysms (3 sources) Aortic root dilatation; Translations: [Thoracic aortic ectasia] Onset: 4 12-21-2023 Chronic Cardiac dysrhythmias (3 sources) Multiple premature ventricular complexes; Translations: [Ventricular premature depolarization] Onset: 8 12-13-2023 Chronic Cataract (19 sources) Nuclear senile cataract; Translations: [Age-related nuclear cataract, bilateral] Onset: 3 11-17-2022 Chronic Coagulation and hemorrhagic disorders (15 sources) Thrombocytopenic disorder; Translations: [Thrombocytopenia, unspecified] Onset: 3 11-17-2022 Chronic Disorders of lipid metabolism (15 sources) Dyslipidemia; Translations: [Hyperlipidemia, unspecified] Onset: 3 11-17-2022 Chronic Esophageal disorders (20 sources) Recinos's esophagus; 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] Onset: 3 Chronic Fluid and electrolyte disorders (2 sources) Hypo-osmolality and hyponatremia; Translations: [Hypo-osmolality and hyponatremia] Onset: 4 Episodic Osteoporosis (6 sources) Osteoporosis; Translations: [Age-related osteoporosis without current pathological fracture] Onset: 3 03-21-2023 Chronic Other disorders of stomach and duodenum (7 sources) Disorder of function of stomach; Translations: [Disease of stomach and duodenum, unspecified] 07-05-2023 Episodic Other disorders of stomach and duodenum (1 source) Disease of stomach and duodenum, unspecified; Translations: [Dyspepsia and other specified disorders of function of stomach] 07-05-2023 Episodic Other eye disorders (15 sources) 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; Translations: [Crystalline [...] [Other fecal abnormalities] Episodic Other gastrointestinal disorders (4 sources) Ascites; Translations: [Other ascites] Onset: 4 12-13-2023 Episodic Other liver diseases (15 sources) Steatosis of liver; Translations: [Fatty (change of) liver, not elsewhere classified] Onset: 3 11-17-2022 Chronic Other liver diseases (1 source) Fatty (change of) liver, not elsewhere classified Chronic Other liver diseases (17 sources) Cirrhosis of liver; Translations: [Unspecified cirrhosis of liver] Onset: 4 07-05-2023 Chronic Other liver diseases (6 sources) Unspecified cirrhosis of liver; Translations: [Cirrhosis of liver without mention of alcohol] Onset: 3 Chronic Other liver diseases (2 sources) Liver disease, unspecified; Translations: [Liver disease, unspecified] Onset: 4 Chronic Other liver diseases (2 sources) Hepatic encephalopathy; Translations: [Hepatic encephalopathy] Onset: 4 Episodic Other lower respiratory disease (3 sources) Dyspnea on exertion; Translations: [Other forms of dyspnea] Onset: 4 12-13-2023 Episodic Other nutritional; endocrine; and metabolic disorders (15 sources) Metabolic syndrome X; Translations: [Metabolic syndrome] Onset: 3 11-17-2022 Chronic Residual codes; unclassified (6 sources) Edema; Translations: [Localized edema] Episodic Residual codes; unclassified (6 sources) Early satiety; Translations: [Early satiety] Episodic Residual codes; unclassified (1 source) Localized edema Episodic Retinal detachments; defects; vascular occlusion; and retinopathy (15 sources) Epiretinal membrane; 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, bilateral] Onset: 3 11-17-2022 Chronic Unclassified (1 source) Unknown / UNK(Unknown) Onset: 7 Unclassified (1 source) Second degree hemorrhoids; Translations: [Second degree hemorrhoids] Onset: 4 Unclassified (1 source) Encounter for preprocedural laboratory examination; Translations: [Encounter for preprocedural laboratory examination] Onset: 4 Past or Other Problems Problem Classification Problem Date Documented Da te Episodic/Chronic Abdominal hernia (6 sources) Incisional hernia; Translations: [Incisional hernia without obstruction or gangrene] Onset: 12-06-2012 03-21-2023 Episodic Abdominal pain (6 sources) Lower abdominal pain, unspecified; Translations: [Epigastric pain] Onset: 05-23-2023 Episodic Anal and rectal conditions (9 sources) Anal fissure; Translations: [Anal fissure, unspecified] Onset: 05-18-2023 05-18-2023 Episodic Deficiency and other anemia (2 sources) Anemia, unspecified; Translations: [Anemia, unspecified] Onset: 08-07-2023 Episodic Diabetes mellitus without complication (15 sources) Type 2 diabetes mellitus without complication; Translations: [Type 2 diabetes mellitus without complications] Onset: 11-17-2022 Resolved: 11-15-2023 11-17-2022 Chronic Essential hypertension (20 sources) Benign essential hypertension; Translations: [Essential (primary) hypertension] Onset: 11-26-2012 Resolved: 11-15-2023 11-17-2022 Chronic Hemorrhoids (10 sources) Internal hemorrhoids grade II; Translations: [Second degree hemorrhoids] Onset: 06-22-2023 06-13-2023 Episodic Nausea and vomiting (20 sources) Nausea; Translations: [Nausea] Onset: 04-26-2023 Episodic Other and unspecified benign neoplasm (15 sources) History of polyp of colon; Translations: [Personal history of colonic polyps] Onset: 03-21-2023 03-21-2023 Episodic Other connective tissue disease (1 source) Pain in left toe(s); Translations: [Pain in left toe(s)] Onset: 01-04-2017 Episodic Other connective tissue disease (6 sources) Muscle pain; Translations: [Myalgia, unspecified site] Onset: 03-16-2023 03-16-2023 Episodic Other gastrointestinal disorders (3 sources) Abdominal distension (gaseous); Translations: [Abdominal distension (gaseous)] Onset: 08-07-2023 Episodic Other gastrointestinal disorders (1 source) Other ascites; Translations: [Other ascites] Onset: 08-03-2023 Episodic Other non-epithelial cancer of skin (3 sources) Basal cell carcinoma of skin; Translations: [Basal cell carcinoma of skin, unspecified] Onset: 06-27-2017 08-30-2023 Episodic Other nutritional; endocrine; and metabolic disorders (3 sources) Abnormal weight loss; Translations: [Abnormal weight loss] Onset: 07-18-2023 07-18-2023 Episodic Residual codes; unclassified (15 sources) Insomnia; Translations: [Insomnia, unspecified] Onset: 11-17-2022 11-17-2022 Episodic Residual codes; unclassified (3 sources) Early satiety; Translations: [Early satiety] Onset: 04-26-2023 Episodic Residual codes; unclassified (3 sources) Transient alteration of awareness; Translations: [Transient alteration of awareness] Onset: 07-18-2023 07-18-2023 Episodic Results Test Name Value Interpretation Reference Range Facility Orders Onlyon 01-25-2024 Orders Only [id number] Ambrosio Blandon 1955 M Date Provider Department Center 01/25/2024 [id number], HISTORICAL [facility] No family history on file Normal [facility] US Eye+Orbit - bilateralon 1 Diagnosis: Cataract both eyes (OU) Testing Indication: Performed for preop measurements in the determination of an intraocular lens (IOL) for both eyes (OU) Test Reliability: Good quality both eyes (OU) Interpretation: Good measurements for intraocular lens (IOL) calculation purposes. Calculation made for both eyes (OU). [facility] Study observation (narrative) [facility] 36on 01-17-2024 36 [facility] 01-16-2024 Orders Only [id number] Ambrosio Blandon 1955 M Date Provider Department Center 01/16/2024 [id number] HAZEL [facility] No family history on file Normal [facility] Orders Onlyon 01-04-2024 Orders Only [id number] Ambrosio Blandon 1955 M Date Provider Department Center 01/04/2024 [id number], HISTORICAL [facility] No family history on file Normal [facility] 36on 01-03-2024 36 Called patient with [...] day prior or the day of MRI. Normal [facility] 36 ----- Message from Rachel Doan MA sent at 01/03/2024 9:53 AM EDT ----- A new document has been added to this order with description [facility] results. Normal [facility] Orders Onlyon 01-03-2024 Orders Only [id number] Ambrosio Blandon 1955 M Date Provider Department Center 01/03/2024 [id number], HISTORICAL [facility] No family history on file Normal [facility] Telephoneon 01-03-2024 Telephone [id number] Ambrosio Blandon 1955 M Date Provider Department Center 01/03/2024 [id number]-MARITO MAE [facility] GASTRO None No family history on file [facility] 36on 01-01-2024 36 Called patient to cl juan jose Lasix dosage, instructed to take Lasix 60mg daily. expressed understanding. I did instruct her that we would like repeat BMP to assess potassium and Creatinine, Monday or Monday. She is planning to have this done at [facility] on Monday. I did provide the fax number to our clinic for results. She is awaiting scheduling for MRI and Abdominal XR at [place]. [facility] Refillon 12-30-2023 Refill [id number] Ambrosio Blandon 1955 M Date Provider Department Center 12/30/[id number] HAZEL [facility] No family history on file Reason for Visit and Comments: Med Refill [[id number]] [facility] 36on 12-29-2023 36 Patient's saucedo d in to say that the lab at [facility] told her insurance doesn't cover the Enteric Bacterial DNA stool and it is $1500, they told her if we sent in an order for a stool culture is would be similar and insurance would cover that. Also the lab doesn't do the fecal fat 24 hours, but will do the fecal fat 72 hours. Please advise. [facility] 36 Patient's carmen ng again for clarification of lasix dosage 60mg daily on the office note, 60mg BID on the prescription. She is concerned about giving him the correct dosage and frequency. [facility] Documentationon 12-29-2023 Documentation [id number] Ambrosio Blandon 1955 M Date Provider Department Center 12/29/2023 [id number] LIRA [facility] No family history on file [facility] Orders Onlyon 12-29-2023 Orders Only [id number] Ambrosio Blandon 1955 M Date Provider Department Center 12/29/2023 [id number]-EKATERINA ALMODOVAR [facility] GISC GEORGEI No family history on file [facility] Telephoneon 12-29-2023 Telephone [id number] Ambrosio Blandon 1955 M Date Provider Department Center 12/29/2023 BROOKLYNN ZEPEDA [facility] Pavi No family history on file [facility] 36on 12-28-2023 36 Patient's carmen neil for clarification of Lasix dosage, on discharge plan it is written as 60mg daily, but the pharmacy gave her a bottle of lasix where the sig is written 60mg twice daily. She anxious and wants to make sure she gives him the correct dosage and frequency.Please advise. [facility] Telephoneon 12-28-2023 Telephone [id number] Ambrosio Blandon 1955 M Date Provider Department Center 12/28/2023 BROOKLYNN ZEPEDA MP [facility] Pavi No family history on file [facility] 37on 12-27-[address] [facility] and [...] (same day). This can be done at [facility]. Please continue Rifaximin 550mg twice daily, and Lactulose once daily for encephalopathy Schedule a follow up appointment in 3 months. Normal [facility] AFP TUMOR MARKERon 4 ALPHA FETOPROTEIN TUMOR MARKER 3 ng/mL Normal 0-9 [facility] Comment on above: Result Comment: INTE [...] reference intervals for this test in the [employer] [facility] Test Directory ([employer]). Performed By: [employer] [address] [place] [id number] Stock Cutter: Ira Lutz MD, PhD CLIA Number: [id number] Performed By: #### L [id number] #### [facility] [address] [place] [address] CBCon 12-27-2023 Erythrocyte distribution width (RBC) [Ratio] 15.1 % High 11.5-15.0 [facility] Comment on above: Performed By: #### L [id number] #### [facility] (BEAK[facility]) [address] [place] [address] ERYTHROCYTE MEAN CORPUSCULAR HEMOGLOBIN CONCENTRATION (G/DL) BY AUTOMATED 33.2 g/dL Normal 32.0-35.0 [facility] Comment on above: Performed By: #### L [id number] #### [facility] ([facility]) [address] [place] [address] Hematocrit (Bld) [Volume fraction] 38.5 % Low 39.0-55.0 [facility] Comment on above: Performed By: #### L [id number] #### [facility] ([facility]) [address] [place] [address] Hemoglobin (Bld) [Mass/Vol] 12.8 g/dL Low 13.0-17.0 [facility] Comment on above: Performed By: #### L [id number] #### [facility] ([facility]) [address] [place] [address] MCH (RBC) [Entitic mass] 32.8 pg Normal 27.0-33.0 [facility] Comment on above: Performed By: #### L [id number] #### [facility] ([facility]) [address] [place] [address] MCV (RBC) [Entitic vol] 98.7 fL High 82.0-98.0 [facility] Comment on above: Performed By: #### L [id number] #### [facility] ([facility]) [address] [place] [address] PLATELETS (10*3/UL) IN BLOOD AUTOMATED COUNT 166 10*3/uL Normal 150-400 [facility] Comment on above: Performed By: #### L [id number] #### [facility] ([facility]) [address] [place] [address] RBC (Bld) [#/Vol] 3.90 10*6/uL Low 4.20-5.70 [facility] Comment on above: Performed By: #### L [id number] #### [facility] ([facility]) [address] [place] [address] WBC (Bld) [#/Vol] 4.72 10*3/uL Normal 4.00-10.60 [facility] Comment on above: Performed By: #### L [id number] #### [facility] ([facility]) [address] [place] [address] COMPREHENSIVE METABOLIC PANE Mayito 12-27-2023 Albumin [Mass/Vol] 3.1 g/dL Low 3.5-5.7 [facility] Comment on above: Performed By: #### L [id number] ####[facility] ([facility])[address] [place] [address] ALP [Catalytic activity/Vol] 120 U/L High 34-104 [facility] Comment on above: Performed By: #### L [id number] ####[facility] ([facility])[address] [place] [address] ALT [Catalytic activity/Vol] 25 U/L Normal 7-52 [facility] Comment on above: Performed By: #### L [id number] ####[facility] (BEAKER)[address] [place] [address] Anion gap [Moles/Vol] 12 mmol/L Normal 7-20 [facility] Comment on above: Performed By: #### L [id number] ####[facility] ([facility] [place] [address] AST [Catalytic activity/Vol] 46 U/L High 13-39 [facility] Comment on above: Performed By: #### L [id number] ####[facility] ([facility] [place] [address] Bilirubin [Mass/Vol] 1.9 mg/dL High 0.3-1.0 [facility] Comment on above: Performed By: #### L [id number] ####[facility] ([facility])[address] [place] [address] Calcium [Mass/Vol] 9.0 mg/dL Normal 8.6-10.3 [facility] Comment on above: Performed By: #### L [id number] ####[facility] ([facility] [place] [address] Chloride [Moles/Vol] 98 mmol/L Normal 98-107 [facility] Comment on above: Performed By: #### L [id number] ####[facility] (BEAKER)[address] [place] [address] CO2 [Moles/Vol] 26 mmol/L Normal 21-31 [facility] Comment on above: Performed By: #### L [id number] ####[facility] (BEAKER)[address] [place] [address] Creatinine [Mass/Vol] 1.11 mg/dL Normal 0.70-1.30 [facility] Comment on above: Performed By: #### L [id number] ####[facility] (BEAKER)[address] [place] [address] GLOMERULAR FILTRATION RATE ML/MIN/1.73 SQ M.PREDICTED 71.4 mL/min/1.73m*2 Normal >60.0 [place] Comment on above: Result Comment: [facility]???s estimated glomerular filtration rate (eGFR) will [...] of individuals. Performed By: #### L [id number] ####[facility] ([facility])[address] [place] [address] Glucose [Mass/Vol] 111 mg/dL High 70-100 [facility] Comment on above: Performed By: #### L [id number] ####[facility] ([facility])[address] [place] [address] Potassium [Moles/Vol] 4.4 mmol/L Normal 3.5-5.1 [facility] Comment on above: Performed By: #### L [id number] ####[facility] ([facility])[address] [place] [address] Protein [Mass/Vol] 7.3 g/dL Normal 6.0-8.3 [facility] Comment on above: Performed By: #### L [id number] ####[facility] ([facility] [place] [address] Sodium [Moles/Vol] 132 mmol/L Low 136-145 [facility] Comment on above: Performed By: #### L [id number] ####[facility] (BEAKER)[address] [place] [address] Urea nitrogen [Mass/Vol] 17 mg/dL Normal 7-25 [facility] Comment on above: Performed By: #### L [id number] ####[facility] (BEAKER)[address] [place] [address] UREA NITROGEN/CREATININE (MASS RATIO) IN SER/PLAS 15.3 Normal [facility] Comment on above: Performed By: #### L [id number] ####[facility] (BEAKER)[address] [place] [address] Labon 12-27-2023 Lab [id number] Ambrosio Blandon 1955 M Date Provider Department Center 12/27/2023 2244-[facility] MP LAB RESOURCE MP DRAW Medical Pavi No family history on file Normal [facility] Office Visiton 12-27-2023 Follow-up visit [id number] Ambrosio Blandon 1955 M Date Provider Department [place] 12/27/2023 298-IRENA JOHNSON MP GI Medical Pavi No family history on file Level of Service:63479 NE OFFICE/OUTPATIENT ESTABLISHED HIGH MDM 40 MIN (GC) Reason for Visit and Comments: Follow-up [309699] Cirrhosis [239] Ascites [295] Normal [facility] PROTIME-INRon 12-27-2023 INR IN PPP BY COAGULATION ASSAY 1.21 High 0.90-1.10 [facility] Comment on above: Result Comment: ACCC [...] RANGE. CHEST 1995;108:231S-246S. Performed By: #### L [id number] #### [facility] (MILLIE) [address] [place] [address] PROTHROMBIN TIME (PT) IN PPP BY COAGULATION ASSAY 15.3 Seconds High 12.3-14.8 [facility] Comment on above: Performed By: #### L [id number] #### [facility] (MILLIE) [address] [place] [address] 36on 12-21-2023 36 I called and spoke w ith the patient's in regards to his recent lab work after increasing his diuretics. His creatinine and electrolytes are grossly stable after increasing his Lasix and Aldactone. We will continue with the current regimen of Lasix 40 twice daily and Aldactone 200 mg daily and follow-up in hepatology clinic on 12/27/2023. [facility] Orders Onlyon 12-21-2023 Orders Only [id number] Ambrosio Blandon 1955 [facility] Provider Department Center 12/21/2023 [id number], HISTORICAL MP GI Medical Pavi No family history on file [facility] Telephoneon 12-21-2023 Telephone [id number] Ambrosio Blandon 1955 [facility] Provider Department [place] 12/21/2023 [id number]-WCAFHGIBSON HAZEL MP GI Medical Pavi No family history on file [facility] Orders Onlyon 12-20-2023 Orders Only [id number] Ambrosio Blandon 1955 [facility] Provider Department Center 12/20/2023 [id number], HISTORICAL MP GI Medical Pavi No family history on file [facility] 36on 12-14-2023 36 [employer] faxed lab ord ers to [facility]. [facility] 36 ----- Message from Serena Hazel MD sent at 12/14/2023 1:36 PM EDT ----- Petra, I sent over a prescription for his diuretics and recommended that they have repeat CMP next week. The order has been placed, can you please fax this to [facility] so that they can get them done next week? Thank you so much ----- Message ----- From: Rachel Doan MA Sent: 12/13/2023 1:35 PM EDT To: Gibson Hazel MD A new document has been added to this order with description CMP results [facility]. [facility] 36 Patient's sheryl lu last week asking [...] assess his diuretics further at that time. [facility] Orders Onlyon 12-14-2023 Orders Only [id number] Ambrosio Blandon 1955 M Date Provider Department Center 12/14/202325101-MHBXOGIBSON ESPOSITO GI Medical Pavi No family history on file [facility] Telephoneon 12-14-2023 Telephone [id number] Ambrosio Blandon 1955 M Date Provider Department Center 12/14/202392041-KLMAVGIBSON HAZEL GI Medical Pavi No family history on file [facility] Orders Onlyon 12-13-2023 Orders Only [id number] Ambrosio Blandon 1955 M Date Provider Department Center 12/13/2023 [id number]-TDVUIZKBMAGALIS MP GI Medical Pavi No family history on file [facility] 36on 12-11-2023 36 Patient's repor ts that [...] an appointment in hepatology clinic on 12/27/2023. [facility] 36 of patient call s today stating that when they went for paracentesis at [facility] last week - the patient was admitted. [...] clinic visit with Dr. Johnson on 12/27/2023. [facility] Orders Onlyon 12-11-2023 Orders Only [id number] Ambrosio Blandon 1955 M Date Provider Department Center 12/11/202325365-XGAZWGIBSON HAZEL MP GI Medical Pavi No family history on file [facility] Telephoneon 12-11-2023 Telephone [id number] Ambrosio Blandon 1955 M Date Provider Department Center 12/11/202385552-ENANKGIBSON HAZEL MP GI Medical Pavi No family history on file [facility] Mayito 12-08-2023 L Specimen: [id number] Received: 12/11/23 Status: SOUT Req Num: [id number] Spec Type: Cytology Subm Dr: Devyn Winter DO Tissues: A PLEURAL FLUID (PLEUR) Procedures: HE/2, Gross/Micro L4, Cyto Prepstain, PAPSTN Age/ Patient Sex Location Account Attending Physician Charles Blandon 68/M [facility] [id number] Devyn Winter DO SPEC NUM: [id number] RECD: 12/11/23 STATUS: HUSAM ERLINDA NUM: [id number] WEN: 12/08/[address]: Devyn Winter DO ENTERED: 12/11/[address]: Babs,Lab SPEC TYPE: Cytology DEPT: [facility] ENTERED BY: [id number] RECV BY: [id number] ORDERED: HE/2, Gross/Micro L4, Cyto Prepstain, PAPSTN [...] the above interpretation Specimen: Received: 12/11/23 Status: SERAEmilie Coffey Num: [id number] Spec Type: Cytology Subm Dr: Devyn Winter DO Tissues: A PLEURAL FLUID (PLEUR) Procedures: HE/2, Gross/Micro L4, Cyto Prepstain, PAPSTN Patient: Charles Blandon [id number] (Continued) Specimen: [id number] Received: 12/11/23 (Continued) Signed (signature on file) Windy Duque MD 12/14/23 1503 Specimen: [id number] Received: 12/11/23 Status: HUSAM Coffey Num: [id number] Spec Type: Cytology Subm Dr: Devyn Winter DO Tissues: A PLEURAL FLUID (PLEUR) Procedures: HE/2, Gross/Micro L4, Cyto Prepstain, PAPSTN Patient: Charles Blandon [id number] (Continued) Specimen: Received: 12/11/23 (Continued) CPT Codes 08214 39843 Specimen: Received: 12/11/23 Status: HUSAM Coffey Num: [id number] Spec Type: Cytology Subm Dr: Devyn Winter DO Tissues: A PLEURAL FLUID (PLEUR) Procedures: HE/2, Gross/Micro L4, Cyto Prepstain, PAPSTN Patient: Charles Blandon [id number] (Continued) Signed (signature on file) Robert-Fabio Duque MD 12/14/23 1503 Normal [facility] Mayito 12-07-2023 L Specimen: Received: 12/14/23 Status: SERAEmilie Coffey Num: [id number] Spec Type: Cytology Subm Dr: aWrd Stern MD Tissues: A ASCITES (ASC) Procedures: HE/2, Gross/Micro L4, Cyto Prepstain, PAPSTN Age/ Patient Sex Location Account Attending Physician Charles Blandon 68/M LAB[facility] [id number] Ward Stern MD SPEC NUM: RECD: 12/14/23 STATUS: HUSAM COFFEY NUM: [id number] WEN: 12/07/23- SUBM DR: Ward Stern MD ENTERED: 12/14/[address] [facility] DR: Babs,Lab SPEC TYPE: Cytology DEPT: [facility] ENTERED BY: [id number] RECV BY: [id number] ORDERED: HE/2, Gross/Micro L4, Cyto Prepstain, PAPSTN [...] [id number] Received: 12/14/23 Status: HUSAM Coffey Num: [id number] Spec Type: Cytology Subm Dr: Ward Stern MD Tissues: A ASCITES (ASC) Procedures: HE/2, Gross/Micro L4, Cyto Prepstain, PAPSTN Patient: Charles Blandon [id number] (Continued) Specimen: BC Received: 12/14/23 (Continued) Signed (signature on file) Windy Duque MD 12/19/23 1440 Specimen: Received: 12/14/23 Status: HUSAM Coffey Num: [id number] Spec Type: Cytology Subm Dr: Ward Stern MD Tissues: A ASCITES (ASC) Procedures: HE/2, Gross/Micro L4, Cyto Prepstain, PAPSTN Patient: Charles Blandon [id number] (Continued) Specimen: BC Received: 12/14/23 (Continued) CPT Codes 58269 77974 Specimen: BC Received: 12/14/23 Status: HUSAM Coffey Num: [id number] Spec Type: Cytology Subm Dr: Ward Stern MD Tissues: A ASCITES (ASC) Procedures: /2, Gross/Micro L4, Cyto Prepstain, PAPSTN Patient: Charles Blandon [id number] (Continued) Signed (signature on file) Chin-Fabio Duque MD 12/19/23 7328 Normal [facility] 36on 12-01-[address] Hazel in clinic, order placed and faxed to [facility] at [phone] Normal [facility] 36 calls stating t hat patient is in need of an order for paracentesis. Order will need to be sent to [facility]. Normal [facility] Orders Onlyon 12-01-2023 Orders Only [id number] Ambrosio Blandon 1955 M Date Provider Department Center 12/01/202370775-MKQYRGIBSON HAZEL [facility] Medical Pavi No family history on file Normal [facility] HPon 11-27-2023 HP ----- ----- Attestation [...] PROT B12/Folate/Iron studies: No results found for: [id number] , FOLATE , IRON , TIBC , UIBC , IRONSAT , FERRITIN ASSESSMENT AND PLAN Charles Blandon is a 68 y.o. male who has a known past medical history significant for alcoholic liver cirrhosis, Recinos's esophagus and hepatic encephalopathy is scheduled today for an EGD for esophageal varices screening. Plan: Plan for EGD today for esophageal varices secondary to liver cirrhosis. Normal [facility] POCT GLUCOSE METER UNSOLICIT ED RESULTSon 11-27-2023 Glucose [Mass/Vol] 101 mg/dL Normal 70-105 [facility] Comment on above: Order Comment: Waive d Testing in the ED is performed under the ED CLIA certificate #[id number]. Result Comment: jhag eman Performed By: #### L [id number] #### [facility] (BEAKER) [address] [place] [address] 36on 11-21-2023 36 Appeal submitted Normal [facility] Orders Onlyon 11-21-2023 Orders Only [id number] Ambrosio Blandon 1955 M Date Provider Department Center 11/21/2023 BROOKLYNN ZEPEDA GI Medical Pavi No family history on file Normal [facility] Prep for Procedureon 024 Prep for Procedure [id number] Ambrosio Blandon 1955 M Date Provider Department Center 11/21/2023 IRENA SCHMIDT [facility] GISC GEORGEI No family history on file Normal [facility] MR ABDOMEN W AND WO CONTRAST [...] signed: Adalid Montiel. 9 Invalid Interpretation Code [facility] Orders Only11-08-2023 Orders Only [id number] Ambrosio Blandon 1955 M Date Provider Department Center 11/08/2023 [id number], BETH GI Medical Pavi No family history on file [facility] 11-02-2023 36 Patient's carmen jolynn to verify that Dr. Jesus will now be prescribing the Famotidine and Baclofen because the previously prescribing physician no longer will now that he is a [facility] GI patient. The preferred pharmacy is [facility] in [place]. Please advise and these orders can then be pended. [facility] Orders Only11-02-2023 Orders Only [id number] Ambrosio Blandon 1955 M Date Provider Department Center 11/02/2023 [id number], [facility] GI Medical Pavi No family history on file [facility] 3610-26-2023 36 I called the [...] of his liver on the . Normal [facility] Orders Onlyon 10-26-2023 Orders Only [id number] Ambrosio Blandon 1955 M Date Provider Department Center 10/26/202330049-CGVWGGIBSON ESPOSITO GI Medical Pavi No family history on file [facility] Telephoneon 10-26-2023 Telephone [id number] Ambrosio Blandon 1955 M Date Provider Department Center 10/26/202307060-FJKBKGIBSON HAZEL GI Medical Pavi No family history on file [facility] Orders Onlyon 10-24-2023 Orders Only [id number] Ambrosio Blandon 1955 M Date Provider Department Center 10/24/2023 [id number]-[id number] GI Medical Pavi No family history on file [facility] Orders Onlyon 10-20-2023 Orders Only [id number] Ambrosio Blandon 1955 M Date Provider Department Center 10/20/2023 RUFINO HORN [facility] No family history on file [facility] 36on 10-18-2023 36 I called [...] we can follow-up on his sodium level. [facility] 36 Patients called stating they [...] back from you to clarify some things. [facility] Orders Onlyon 10-18-2023 Orders Only [id number] Ambrosio Blandon emma 1955 M Date Provider Department Center 10/18/2023EKATERINA [facility]A [facility] No family history on file [facility] Telephoneon 10-18-2023 Telephone [id number] Ambrosio Blandon emma 1955 M Date Provider Department Center 10/18/202313135-OXXZMGIBSON ESPOSITO MP GI Medical Pavi No family history on file [facility] Orders Onlyon 10-17-2023 Orders Only [id number] Ambrosio Blandon emma 1955 M Date Provider Department Center 10/17/202340953-ZMMCUGIBSON ESPOSITO MP GI Medical Pavi No family history on file [facility] Documentationon 10-16-2023 Documentation [id number] Ambrosio Blandon emma 1955 M Date Provider Department Center 10/16/2023 CARMELLA NICOLE MP GI Medical Pavi No family history on file Reason for Visit and Comments: Specialty Pharmacy Note: Emma PAP [Other] [facility] Prep for Procedureon 024 Prep for Procedure [id number] Ambrosio Blandon emma 1955 M Date Provider Department Center 10/16/2023 IRENA SCHMIDT [facility] No family history on file Normal [facility] BASIC METABOLIC PANELon 06-2 Anion gap [Moles/Vol] 14 mmol/L Normal 7-20 [facility] Comment on above: Performed By: #### L [id number] #### [facility] (BEAKER) [address] [place] [place] [address] Calcium [Mass/Vol] 9.1 mg/dL Normal 8.6-10.3 [facility] Comment on above: Performed By: #### L [id number] #### [facility] (BEAKER) [address] [place] [address] Chloride [Moles/Vol] 96 mmol/L Low 98-107 [facility] Comment on above: Performed By: #### L [id number] #### [facility] (BEAKER) [address] [place] [address] CO2 [Moles/Vol] 22 mmol/L Normal 21-31 [facility] Comment on above: Performed By: #### L [id number] #### [facility] (BEAKER) [address] [place] [address] Creatinine [Mass/Vol] 1.00 mg/dL Normal 0.70-1.30 [facility] Comment on above: Performed By: #### L [id number] #### [facility] (BEAKER) [address] [place] [address] GLOMERULAR FILTRATION RATE ML/MIN/1.73 SQ M.PREDICTED 81.0 mL/min/1.73m*2 Normal >60.0 [place] Comment on above: Result Comment: [facility]???s estimated glomerular filtration rate (eGFR) will [...] individuals. Performed By: #### L [id number] #### [facility] ([facility]) [address] [place] [address] Glucose [Mass/Vol] 108 mg/dL High 70-100 [facility] Comment on above: Performed By: #### L [id number] #### [facility] ([facility]) [address] [place] [address] Potassium [Moles/Vol] 4.8 mmol/L Normal 3.5-5.1 [facility] Comment on above: Performed By: #### L [id number] #### [facility] ([facility]) [address] [place] [address] Sodium [Moles/Vol] 127 mmol/L Low 136-145 [facility] Comment on above: Performed By: #### L [id number] #### [facility] ([facility]) [address] [place] [address] Urea nitrogen [Mass/Vol] 13 mg/dL Normal 7-25 [facility] Comment on above: Performed By: #### L [id number] #### [facility] ([facility]) [address] [place] [address] UREA NITROGEN/CREATININE (MASS RATIO) IN SER/PLAS 13.0 Normal [facility] Comment on above: Performed By: #### L [id number] #### [facility] ([facility]) [address] [place] [address] CBCon 10-13-2023 Erythrocyte distribution width (RBC) [Ratio] 14.2 % Normal 11.5-15.0 [facility] Comment on above: Performed By: #### L [id number] #### [facility] ([facility]) [address] [place] [address] ERYTHROCYTE MEAN CORPUSCULAR HEMOGLOBIN CONCENTRATION (G/DL) BY AUTOMATED 34.5 g/dL Normal 32.0-35.0 [facility] Comment on above: Performed By: #### L [id number] #### [facility] ([facility]) [address] [place] [address] Hematocrit (Bld) [Volume fraction] 38.0 % Low 39.0-55.0 [facility] Comment on above: Performed By: #### L [id number] #### [facility] ([facility]) [address] [place] [address] Hemoglobin (Bld) [Mass/Vol] 13.1 g/dL Normal 13.0-17.0 [facility] Comment on above: Performed By: #### L [id number] #### [facility] ([facility]) [address] [place] [address] MCH (RBC) [Entitic mass] 34.4 pg High 27.0-33.0 [facility] Comment on above: Performed By: #### L [id number] #### [facility] ([facility]) [address] [place] [address] MCV (RBC) [Entitic vol] 99.7 fL High 82.0-98.0 [facility] Comment on above: Performed By: #### L [id number] #### [facility] ([facility]) [address] [place] [address] PLATELETS (10*3/UL) IN BLOOD AUTOMATED COUNT 212 10*3/uL Normal 150-400 [facility] Comment on above: Performed By: #### L [id number] #### [facility] ([facility]) [address] [place] [address] RBC (Bld) [#/Vol] 3.81 10*6/uL Low 4.20-5.70 [facility] Comment on above: Performed By: #### L [id number] #### [facility] ([facility]) [address] [place] [address] WBC (Bld) [#/Vol] 6.20 10*3/uL Normal 4.00-10.60 [facility] Comment on above: Performed By: #### L [id number] #### [facility] ([facility]) [address] [place] [address] HEPATIC FUNCTION PANELon Albumin [Mass/Vol] 3.4 g/dL Low 3.5-5.7 [facility] Comment on above: Performed By: #### L [id number] #### [facility] ([facility]) [address] [place] [address] ALP [Catalytic activity/Vol] 114 U/L High 34-104 [facility] Comment on above: Performed By: #### L [id number] #### [facility] ([facility]) [address] [place] [address] ALT [Catalytic activity/Vol] 23 U/L Normal 7-52 [facility] Comment on above: Performed By: #### L [id number] #### [facility] ([facility]) [address] [place] [address] AST [Catalytic activity/Vol] 48 U/L High 13-39 [facility] Comment on above: Performed By: #### L [id number] #### [facility] ([facility]) [address] [place] [address] Bilirubin [Mass/Vol] 1.5 mg/dL High 0.3-1.0 [facility] Comment on above: Performed By: #### L [id number] #### [facility] ([facility]) [address] [place] [address] Magnesium [Mass/Vol] 0.5 mg/dL High 0-0.2 [facility] Comment on above: Performed By: #### L [id number] #### [facility] ([facility]) [address] [place] [address] Protein [Mass/Vol] 7.8 g/dL Normal 6.0-8.3 [facility] Comment on above: Performed By: #### L [id number] #### [facility] ([facility]) [address] [place] [address] Labon 10-13-2023 Lab [id number] Ambrosio Blandon 1955 M Date Provider Department Center 10/13/2023 2244-[facility] MP LAB RESOURCE MP DRAW Medical Pavi No family history on file Normal [facility] Office Visiton 10-13-2023 Follow-up visit [id number] Ambrosio Blandon 1955 M Date Provider Department Center 10/13/2023 298-JOHNSONIRENA CONTRERAS MP GI Medical Pavi No family history on file Level of Service:36330 NE OFFICE/OUTPATIENT ESTABLISHED HIGH MDM 40 MIN () Reason for Visit and Comments: Cirrhosis [239] Ascites [295] Normal [facility] PROTIME-INRon 10-13-2023 INR IN PPP BY COAGULATION ASSAY 1.17 High 0.90-1.10 [facility] Comment on above: Result Comment: ACCC [...] RANGE. CHEST 1995;108:231S-246S. Performed By: #### L [id number] #### [facility] (MILLIE) [address] [place] [address] PROTHROMBIN TIME (PT) IN PPP BY COAGULATION ASSAY 14.9 Seconds High 12.3-14.8 [facility] Comment on above: Performed By: #### L [id number] #### [facility] (BEAKER) [address] [place] [address] Orders Onlyon 10-06-2023 Orders Only [id number] JamiaAmbrosio emma 1955 M Date Provider Department Center 10/06/2023 [id number], HISTORICAL MP GI Medical Pavi No family history on file Normal [facility] Mayito 10-03-2023 L Specimen: Received: 10/04/23 Status: SOUEmilie Req Num: [id number] Spec Type: Cytology Subm Dr: Arias Jesus MD Tissues: A ASCITES (ASC) Procedures: HE/2, Gross/Micro L4, Cyto Prepstain, PAPSTN Age/ Patient Sex Location Account Attending Physician Charles Blandon 68/M LABELL [id number] Ward Stern MD SPEC NUM: [id number] RECD: 10/04/23 STATUS: HUSAM REQ NUM: [id number] WEN: 10/03/[address]: Arias Jesus MD ENTERED: 10/04/[address] [facility] [address]: Babs,Aliza Stern MD SPEC TYPE: Cytology DEPT: [facility] ENTERED BY: [id number] RECV BY: [id number] ORDERED: HE/2, Gross/Micro L4, Cyto Prepstain, PAPSTN ORDERED: HE/2, Gross/Micro L4, Cyto Prepstain, PAPSTN Pathological Diagnosis Ascites fluid cytology: Atypical cells noted. Clinical Information cirrhosis, liver lesion Gross Description Received is 1000 ml yellow cloudy unfixed fluid for cytology said to have been obtained as abdominal ascites fluid. ThinPrep and cell block preparations are prepared for microscopic examination. (ND/dc) CPT Codes 24189 Specimen: [id number] Received: 10/04/23-1336 Status: HUSAM Coffey Num: [id number] Spec Type: Cytology Subm Dr: Arias Jesus MD Tissues: A ASCITES (ASC) Procedures: HE/2, Gross/Micro L4, Cyto Prepstain, PAPSTN Patient: Charles Blandon [id number] (Continued) Signed (signature on file) Linette Bean MD 10/05/23 1340 Normal [facility] Orders Onlyon 09-27-2023 Orders Only [id number] Ambrosio Blandon 1955 M Date Provider Department Center 09/27/2023 HARSHA FELIX [facility] No family history on file Normal [facility] CREATININE, SERUMon 09-25-19 24 Creatinine [Mass/Vol] 1.06 mg/dL Normal 0.70-1.30 [facility] Comment on above: Performed By: #### L [id number] #### [facility] ([facility]) [address] [place] [address] GLOMERULAR FILTRATION RATE ML/MIN/1.73 SQ M.PREDICTED 75.5 mL/min/1.73m*2 Normal >60.0 [place] Comment on above: Result Comment: [facility]???s estimated glomerular filtration rate (eGFR) will [...] individuals. Performed By: #### L [id number] #### [facility] ([facility]) [address] [place] [address] CTA ABDOMEN PELVIS W IV CONT SIENNATon 09-25-2023 CTA ABDOMEN PELVIS W IV CONTRAST [...] Gan MD. Not Vldtd Invalid Interpretation Code [facility] Labon 09-25-2023 Lab [id number] Ambrosio Blandon emma 1955 M Date Provider Department [place] 09/25/2023 2245-[facility] OPD LAB RESOURCE [facility] OPD MD Medical C No family history on file Normal [facility] Orders Onlyon 09-23-2023 Orders Only [id number] JamiaAmbrosio emma 1955 M Date Provider Department Center 09/23/2023 204-HARSHA CONNER [facility] No family history on file Normal [facility] Orders Onlyon 09-15-2023 Orders Only [id number] JamiaAmbrosio emma 1955 M Date Provider Department [place] 09/15/2023 [id number] MORALES [facility] No family history on file Normal [facility] Orders Onlyon 09-14-2023 Orders Only [id number] JamiaAmbrosio emma 1955 M Date Provider Department [place] 09/14/2023 BROOKLYNN ZEPEDA MP [facility] No family history on file [facility] Orders Onlyon 08-28-2023 Orders Only [id number] Ambrosio Blandon 1955 M Date Provider Department Center 08/28/2023 [id number], HISTORICAL [facility] No family history on file [facility] Orders Onlyon 08-24-2023 Orders Only [id number] Ambrosio Blandon 1955 M Date Provider Department Center 08/24/2023 [id number], HISTORICAL [facility] No family history on file [facility] 29on 08-09-2023 29 Addended by: ARIAS JESUS on: 08/09/2023 12:50 PM Modules accepted: Orders [facility] Orders Onlyon 08-09-2023 Orders Only [id number] Ambrosio Blandon 1955 M Date Provider Department Center 08/09/2023 [id number] SANTIZO [facility] No family history on file [facility] Office Visiton 08-07-2023 Follow-up visit [id number] Ambrosio Blandon 1955 M Date Provider Department Center 08/07/2023 294-ARIAS JESUS [facility] No family history on file Level of Service:01631 NE OFFICE/OUTPATIENT NEW LOW MDM 30 MINUTES (GC) Reason for Visit and Comments: New Patient [632] Weight Loss [482648] - 30 pound weight loss since . Pt recently had surgery for 3 polyps removed and 1 hemorrhoid removal. Dyskenisia of esophgaus [Other] Nausea [70] Vomiting [120] - Pt has a urge to but does not vomit. [facility] Mayito 06-13-2023 L Specimen: [id number] Received: 06/14/23 Status: HUSAM Coffey Num: [id number] Spec Type: Surgical Subm Dr: Janneth Villegas, Tissues: A Hemorrhoids (HEMORRHOID 9:00) Procedures: HE, Gross/Micro L3 Age/ Patient Sex Location Account Attending Physician Charles Blandon 67/M [place] [id number] Janneth Villegas DO SPEC NUM: [id number] RECD: 06/14/23 STATUS: HUSAM PATELMartin NUM: [id number] WEN: 06/13/[address] [facility] [address]: Janneth Villegas DO ENTERED: 06/14/[address]: SPEC TYPE: Surgical DEPT: S ORDERED: [...] to be a discrete transition to more bzazi velvety mucosa. There are no suspicious surface lesions identified. Sectioning demonstrates soft cut surfaces with diffusely dilated blood-filled spaces. Sales Host sections are submitted in 1 cassette as follows: A1 - 1 business services representative section from each fragment to demonstrate change in mucosal types of the largest fragment CPT Codes 02607 Specimen: [id number] Received: 06/14/23 Status: HUSAM Erlinda Num: [id number] Spec Type: Surgical Subm Dr: Janneth Villegas, Tissues: A Hemorrhoids (HEMORRHOID 9:00) Procedures: FAMILIA, Gross/Andi L3 Patient: Charles Blandon [id number] (Continued) Signed (signature on file) Linette Bean MD 06/27/23 2239 Normal [facility] Automated basophil %Ordered By: Janneth Villegas on 06-02-2023 Basophils/100 WBC (Bld) 0.7 % Normal . [facility] Comment on above: Performed By: #### B MP, CBC #### [facility] [address] Automated basophil countOrde red By: Janneth Villegas on 06-02-2023 Basophils (Bld) [#/Vol] 0.0 10*3/uL Normal 0.0-0.2 [facility] Comment on above: Result Comment: PERF ORMED BY: [facility] [address] [place] [address] PATHOLOGIST RN COMPLIANCE CLARK LEARY M.D. Performed By: #### B MP, CBC #### [facility] [address] Automated blood monocyte cou ntOrdered By: Janneth Villegas on 06-02-2023 Monocytes (Bld) [#/Vol] 0.9 10*3/uL High 0.0-0.8 [facility] Comment on above: Performed By: #### B MP, CBC #### [address] Automated eosinophil %Ordere d By: Janneth Villegas on 06-02-2023 Eosinophils/100 WBC (Bld) 1.9 % Normal . [facility] Comment on above: Performed By: #### B MP, CBC #### [address] Automated eosinophil countOr dered By: Janneth Villegas on 06-02-2023 Eosinophils (Bld) [#/Vol] 0.1 10*3/uL Normal 0.0-0.45 [facility] Comment on above: Performed By: #### B MP, CBC #### [address] Automated monocyte %Ordered By: Janneth Villegas on 06-02-2023 Monocytes/100 WBC (Bld) 15.7 % Normal . [facility] Comment on above: Performed By: #### B MP, CBC #### [address] Automated neutrophil %Ordere d By: Janneth Villegas on 06-02-2023 Neutrophils/100 WBC (Bld) 68.5 % Normal . [facility] Comment on above: Performed By: #### B MP, CBC #### [address] Basic Metabolic Panelon 05-18 GFR/1.73 sq M.predicted MDRD (S/P/Bld) [Vol rate/Area] mL/min/{1.73_m2} Normal [facility] Comment on above: Performed By: #### B MP, CBC #### [place] [address] [place] Calcium [Mass/volume] in Ser um or PlasmaOrdered By: Janneth Villegas on 06-02-2023 Calcium [Mass/Vol] 8.6 mg/dL Normal 8.6-10.[address] [facility] Comment on above: Result Comment: PERF ORMED BY: [place] [address] PATHOLOGIST RN COMPLIANCE CLARK LEARY M.D. Performed By: #### B MP, CBC #### [address] Carbon dioxide, total [Moles /volume] in Serum or PlasmaOrdered By: Janneth Villegas on 06-02-2023 CO2 [Moles/Vol] 27.3 mmol/L Normal 21.0-31.0 [facility] Comment on above: Performed By: #### B MP, CBC #### [address] Chloride [Moles/volume] in S mateo or PlasmaOrdered By: Janneth Villegas on 06-02-2023 Chloride [Moles/Vol] 96 mmol/L Low 98-107 [facility] Comment on above: Performed By: #### B MP, CBC #### [address] Complete Blood Count Auto Di ffon 06-02-2023 Mean Corpuscular HGB Conc 35.2 g/dL Normal 32.5-35.6 [facility] Comment on above: Performed By: #### B MP, CBC #### [address] NRBC% 0.1 /100{WBC} Normal 0-0.5 [facility] Comment on above: Performed By: #### B MP, CBC #### [facility] [address] [place] [address] Creatinine [Mass/volume] in Serum or PlasmaOrdered By: Janneth Villegas on 06-02-2023 Creatinine [Mass/Vol] 1.07 mg/dL Normal 0.70-1.30 [facility] Comment on above: Performed By: #### B MP, CBC #### [facility] [address] ECG 12 lead ECGon 06-02-2023 ECG 12 lead ECG [facility] [place] [address] [place] [address] Electrocardiograph Report Signed Patient: Charles Blandon MR#: [id number] 66 : 1955 Acct:[id number] Age/Sex: 67 / M ADM Date: 06/02/23 Loc: [place] Room: Type: [facility] Attending Dr: Janneth Villegas DO Ordering [...] previous ECGs available Confirmed by Gurpreet Dyson ([id number]) on 06/02/2023 6:21:10 PM Referred By: VENKAT VILLEGAS Electronically Signed By:Gurpreet Dyson Transcribed By: MUS Signed By Gurpreet Dyson MD 06/02/23 1821 Normal [facility] Erythrocyte distribution wid th [Ratio] by Automated countOrdered By: Janneth Villegas on 06-02-2023 Erythrocyte distribution width (RBC) [Ratio] 13.8 % Normal 12.0-14.8 [facility] Comment on above: Performed By: #### B MP, CBC #### [facility] [address] [place] [address] Erythrocytes [#/volume] in B lood by Automated countOrdered By: Janneth Villegas on 06-02-2023 RBC (Bld) [#/Vol] 3.45 10*6/uL Low 3.90-5.60 [facility] Comment on above: Performed By: #### B MP, CBC #### [facility] [address] [place] [address] [place] Glucose [Mass/volume] in Ser um or PlasmaOrdered By: Janneth Villegas on 06-02-2023 Glucose [Mass/Vol] 132 mg/dL High 70-[address] [facility] Comment on above: ADA recommended refe rence rangeRandom Glucose Reference Range is dependent on time and content of last meal. Glucose of more than 200 mg/dL in a nonstressed, ambulatory subject supports the diagnosis of Diabetes Mellitus. Result Comment: [place] om Glucose Reference Range is dependent on time and content of last meal. Glucose of more than 200 mg/dL in a nonstressed, ambulatory subject supports the diagnosis of Diabetes Mellitus. ADA recommended reference range Performed By: #### B BRADLEY, CBC #### [facility] [address] [place] [address] Hematocrit [Volume Fraction] of Blood by Automated countOrdered By: Janneth Villegas on 06-02-2023 Hematocrit (Bld) [Volume fraction] 35.5 % Low 38.8-50.0 [facility] Comment on above: Performed By: #### B BRADLEY, CBC #### [facility] [address] [place] [address] Hemoglobin [Mass/volume] in BloodOrdered By: Janneth Villegas on 06-02-2023 Hemoglobin (Bld) [Mass/Vol] 12.5 g/dL Low 13.0-17.0 [facility] Comment on above: Performed By: #### B BRADLEY, CBC #### [facility] [address] [place] [address] Leukocytes [#/volume] correc jamila for nucleated erythrocytes in Blood by Automated counOrdered By: Janneth Villegas on 06-02-2023 WBC corrected for nucl RBC Auto (Bld) [#/Vol] 5.7 10*3/uL 4.1-10.5 [facility] Leukocytes [#/volume] in Blo od by Automated countOrdered By: Janneth Villegas on 06-02-2023 WBC (Bld) [#/Vol] 5.7 10*3/uL Normal 4.1-10.[address] [facility] Comment on above: Performed By: #### B MP, CBC #### [facility] [address] Lymphocytes [#/volume] in Bl ood by Automated countOrdered By: Janneth Villegas on 06-02-2023 Lymphocytes (Bld) [#/Vol] 0.7 10*3/uL Low 1.00-4.8 [facility] Comment on above: Performed By: #### B MP, CBC #### [address] Lymphocytes/100 leukocytes i n Blood by Automated countOrdered By: Janneth Villegas on 06-02-2023 Lymphocytes/100 WBC (Bld) 13.2 % Normal . [facility] Comment on above: Performed By: #### B MP, CBC #### [address] MCH [Entitic mass] by Automa jamila countOrdered By: Janneth Villegas on 06-02-2023 MCH (RBC) [Entitic mass] 36.2 pg High 27.5-35.2 [facility] Comment on above: Performed By: #### B MP, CBC #### [address] MCHC Auto (RBC) [Mass/Vol]Or dered By: Janneth Villegas on 06-02-2023 MCHC (RBC) [Mass/Vol] 35.2 g/dL 32.5-35.6 [facility] MCV [Entitic volume] by Auto mated countOrdered By: Janneth Villegas on 06-02-2023 MCV (RBC) [Entitic vol] 102.9 fL High 83.5-101 [facility] Comment on above: Performed By: #### B MP, CBC #### [place] [address] [place] Neutrophils [#/volume] in Bl ood by Automated countOrdered By: Janneth Villegas on 06-02-2023 Neutrophils (Bld) [#/Vol] 3.9 10*3/uL Normal 1.8-7.7 [facility] Comment on above: Performed By: #### B MP, CBC #### [facility] [address] [place] [address] No Panel InformationOrdered By: Janneth Villegas on 06-02-2023 Estimated GFR (CKD-EPI) > 60.0 mL/Min [facility] Creatinine Clearance (Chem N/A [facility] Nucleated erythrocytes [Pres ence] in Blood by Automated countOrdered By: Janneth Villegas on 06-02-2023 Nucleated RBC Auto Ql (Bld) 0.1 /100{WBC} 0-0.5 [facility] Platelet mean volume [Entiti c volume] in Blood by Automated countOrdered By: Janneth Villegas on 06-02-2023 Platelet mean volume (Bld) [Entitic vol] 8.1 fL Normal 6.6-10.1 [facility] Comment on above: Performed By: #### B MP, CBC #### [facility] [address] [place] [address] Platelets [#/volume] in Bloo d by Automated countOrdered By: Janneth Villegas on 06-02-2023 Platelets (Bld) [#/Vol] 153 10*3/uL Normal 150-450 [facility] Comment on above: Performed By: #### B MP, CBC #### [address] Potassium [Moles/volume] in Serum or PlasmaOrdered By: Janneth Villegas on 06-02-2023 Potassium [Moles/Vol] 4.8 mmol/L Normal 3.5-5.1 [facility] Comment on above: Performed By: #### B MP, CBC #### [address] Serum or plasma anion gap de terminationOrdered By: Janneth Villegas on 06-02-2023 Anion gap [Moles/Vol] 13.5 mmol/L Normal 6.0-15.0 [facility] Comment on above: Performed By: #### B MP, CBC #### [address] Sodium [Moles/volume] in Ser um or PlasmaOrdered By: Janneth Villegas on 06-02-2023 Sodium [Moles/Vol] 132 mmol/L Low 136-[address] [facility] Comment on above: Performed By: #### B MP, CBC #### [facility] [address] [place] [address] Urea nitrogen [Mass/volume] in Serum or PlasmaOrdered By: Janneth Villegas on 06-02-2023 Urea nitrogen [Mass/Vol] 12 mg/dL Normal 7-25 [facility] Comment on above: Performed By: #### B BRADLEY, CBC #### [address] NM gastric emptying studyon 04-26-2023 NM gastric emptying study [facility] [place] [address] [place] [address] Nuclear Medicine Report Signed Patient: Charles Blandon MR#: [id number] 66 : 1955 Acct:[id number] Age/Sex: 67 / M ADM Date: 04/26/23 Loc: [place] Room: Type: [facility] Attending Dr: Lorna Ortega APRN Copies to: [...] Alvarez Jr., D.O.04/26/2023 10:18 AM Dictation Location: [place] [address] Transcribed By: [facility] 04/26/23 1018 Dictated By: Morales Alvarez Jr, DO 04/26/23 1017 Signed By: 04/26/23 1018 Normal [facility] Albumin [Mass/volume] in Ser um or Plasma by Bromocresol green (BCG) dye binding methoOrdered By: Lorna Ortega on 04-12-2023 Albumin BCG dye [Mass/Vol] 3.0 g/dL 3.5-5.7 [facility] Bilirubin.total [Mass/volume ] in Serum or PlasmaOrdered By: Lorna Ortega on 04-12-2023 Bilirubin [Mass/Vol] 1.3 mg/dL High 0.3-1.0 [facility] Comment on above: Samples from patient [...] Bilirubin. Performed By: #### C MP #### [facility] [address] [place] [id number] [place] Calcium [Mass/volume] in Ser um or PlasmaOrdered By: Lorna Ortega on 04-12-2023 Calcium [Mass/Vol] 8.3 mg/dL Low 8.6-10.[address] [facility] Comment on above: Order Comment: Reaso n for Exam Cirrhosis of liver Performed By: #### C MP #### [facility] [address] [place] [id number] [place] Carbon dioxide, total [Moles /volume] in Serum or PlasmaOrdered By: Lorna Ortega on 04-12-2023 CO2 [Moles/Vol] 27.3 mmol/L Normal 21.0-31.0 [facility] Comment on above: Order Comment: Reaso n for Exam Cirrhosis of liver Performed By: #### C MP #### [facility] [address] [place] [address] [facility] Comprehensive Metabolic Pane mayito 04-12-2023 Albumin [Mass/Vol] 3.632590 g/dL Low 3.5-5.7 g/dL [employer] Other Bilirubin [Mass/Vol] 1.3024761 mg/dL High 0.3- 1.0 mg/dL [employer] Other Calcium [Mass/Vol] 8.7140411 mg/dL Low 8.6-10 .3 mg/dL [employer] Other CO2 [Moles/Vol] 27.56218487 mmol/L Normal 21.0-3 1.0 mmol/L [employer] Other Creatinine [Mass/Vol] 0.40794451 mg/dL Normal 0. 70-1.30 mg/dL [employer] Other Potassium [Moles/Vol] 5.01379359 mmol/L Normal 3 .5-5.1 mmol/L [employer] Other Protein [Mass/Vol] 6.484909 g/dL Low 6.4-8.9 g/dL [employer] Other Comprehensive Metabolic Panel 3.3 g/dL [employer] Other Albumin [Mass/Vol] 3.0 g/dL Low 3.5-5.7 [facility] Comment on above: Order Comment: Reaso n for Exam Cirrhosis of liver Performed By: #### C MP #### [facility] [address] [place] [address] [facility] GFR/1.73 sq M.predicted MDRD (S/P/Bld) [Vol rate/Area] mL/min/{1.73_m2} Normal [employer] Other Comment on above: Order Comment: Reaso n for Exam Cirrhosis of liver Performed By: #### C MP #### [facility] [address] [place] [address] Comprehensive Metabolic Pane lOrdered By: Lorna Ortega on 04-12-2023 Albumin/Globulin [Mass ratio] 0.9 {ratio} Normal [facility] Comment on above: Order Comment: Reaso n for Exam Cirrhosis of liver Performed By: #### C MP #### [address] ALP [Catalytic activity/Vol] 158 U/L High 34-104 [facility] Comment on above: Order Comment: Reaso n for Exam Cirrhosis of liver Result Comment: PERF ORMED BY: [place] [address] PATHOLOGIST RN COMPLIANCE CLARK LEARY M.D. Performed By: #### C MP #### [address] ALT [Catalytic activity/Vol] 35 U/L Normal 7-52 [facility] Comment on above: Order Comment: Reaso n for Exam Cirrhosis of liver Performed By: #### C MP #### [address] AST [Catalytic activity/Vol] 76 U/L High 13-39 [facility] Comment on above: Order Comment: Reaso n for Exam Cirrhosis of liver Performed By: #### C MP #### [facility] [address] [place] [address] [place] Chloride [Moles/Vol] 95 mmol/L Low 98-107 [facility] Comment on above: Order Comment: Reaso n for Exam Cirrhosis of liver Performed By: #### C MP #### [address] Glucose [Mass/Vol] 94 mg/dL Normal 70-[address] [facility] Comment on above: ADA recommended refe rence rangeRandom Glucose Reference Range is dependent on time and content of last meal. Glucose of more than 200 mg/dL in a nonstressed, ambulatory subject supports the diagnosis of Diabetes Mellitus. Order Comment: Reaso n for Exam Cirrhosis of liver Result Comment: [place] Glucose Reference Range is dependent on time and content of last meal. Glucose of more than 200 mg/dL in a nonstressed, ambulatory subject supports the diagnosis of Diabetes Mellitus. ADA recommended reference range Performed By: #### C MP #### [facility] [address] [place] [address] [place] Sodium [Moles/Vol] 127 mmol/L Low 136-[address] [facility] Comment on above: Order Comment: Reaso n for Exam Cirrhosis of liver Performed By: #### C MP #### [address] Urea nitrogen [Mass/Vol] 9 mg/dL Normal 7-25 [facility] Comment on above: Order Comment: Reaso n for Exam Cirrhosis of liver Performed By: #### C MP #### [place] [address] [place] Creatinine [Mass/volume] in Serum or PlasmaOrdered By: Lorna Ortega on 04-12-2023 Creatinine [Mass/Vol] 0.81 mg/dL Normal 0.70-1.30 [facility] Comment on above: Order Comment: Reaso n for Exam Cirrhosis of liver Performed By: #### C MP #### [address] No Panel InformationOrdered By: Lorna Ortega on 04-12-2023 Estimated GFR (CKD-EPI) > 60.0 mL/Min [facility] Creatinine Clearance (Chem N/A [facility] Potassium [Moles/volume] in Serum or PlasmaOrdered By: Lorna Ortega on 04-12-2023 Potassium [Moles/Vol] 5.1 mmol/L Normal 3.5-5.1 [facility] Comment on above: Order Comment: Reaso n for Exam Cirrhosis of liver Performed By: #### C MP #### [place] [id number] [place] Protein [Mass/volume] in Ser um or PlasmaOrdered By: Lorna Ortega on 04-12-2023 Protein [Mass/Vol] 6.3 g/dL Low 6.4-8.[address] [facility] Comment on above: Order Comment: Reaso n for Exam Cirrhosis of liver Performed By: #### C MP #### [facility] [address] Serum globulin measurement b y calculation (mass/volume)Ordered By: Lorna Ortega on 04-12-2023 Globulin (S) [Mass/Vol] 3.3 g/dL Normal [facility] Comment on above: Order Comment: Reaso n for Exam Cirrhosis of liver Performed By: #### C MP #### [facility] [address] [place] [address] Serum or plasma anion gap de terminationOrdered By: Lorna Ortega on 04-12-2023 Anion gap [Moles/Vol] 9.8 mmol/L Normal 6.0-15.0 [facility] Comment on above: Order Comment: Reaso n for Exam Cirrhosis of liver Performed By: #### C MP #### [address] XR RIBS 2 VIEWS LEFT WITH [...] muscle IgG Qn (S) 8 Units 0-19 [facility] Comment on above: Negative 0 - 19 Weak positive 20 - 30 Moderate to strong positive >30 Actin Antibodies are found in 52-85% of patients with autoimmune hepatitis or chronic active hepatitis and in 22% of patients with primary biliary cirrhosis. Alanine aminotransferase [En zymatic activity/volume] in Serum or PlasmaOrdered By: Lex Carroll on 09-21-2022 ALT [Catalytic activity/Vol] 30 U/L 7-52 [facility] Albumin [Mass/volume] in Ser um or Plasma by Bromocresol green (BCG) dye binding methoOrdered By: Lex Carroll on 09-21-2022 Albumin BCG dye [Mass/Vol] 3.6 g/dL 3.5-5.7 [facility] Alkaline phosphatase [Enzyma tic activity/volume] in Serum or PlasmaOrdered By: Lex Carroll on 09-21-2022 ALP [Catalytic activity/Vol] 96 U/L 34-104 [facility] Aspartate aminotransferase [ Enzymatic activity/volume] in Serum or PlasmaOrdered By: Lex Carroll on 09-21-2022 AST [Catalytic activity/Vol] 55 U/L 13-39 [facility] Basophils Auto (Bld) [#/Vol] Ordered By: Lex Carroll on 09-21-2022 Basophils (Bld) [#/Vol] 0.0 10*3/uL 0.0-0.2 [facility] Basophils/100 WBC Auto (Bld) Ordered By: Lex Carroll on 09-21-2022 Basophils/100 WBC (Bld) 0.9 % . [facility] Bilirubin.total [Mass/volume ] in Serum or PlasmaOrdered By: Lex Carroll on 09-21-2022 Bilirubin [Mass/Vol] 0.9 mg/dL 0.3-1.0 [facility] Calcium [Mass/volume] in Ser um or PlasmaOrdered By: Lex Carroll on 09-21-2022 Calcium [Mass/Vol] 8.7 mg/dL 8.6-10.[address] [facility] Carbon dioxide, total [Moles /volume] in Serum or PlasmaOrdered By: Lex Carroll on 09-21-2022 CO2 [Moles/Vol] 26.9 mmol/L 21.0-31.0 [facility] Chloride [Moles/volume] in S mateo or PlasmaOrdered By: Lex Carroll on 09-21-2022 Chloride [Moles/Vol] 108 mmol/L 98-107 [facility] Cholesterol [Mass/volume] in Serum or PlasmaOrdered By: Lex Carroll on 09-21-2022 Cholesterol [Mass/Vol] 175 mg/dL 140-200 [facility] Comment on above: Chol less than 200 m g/dl low riskChol 201-239 mg/dl borderline riskChol 240 mg/dl and greater high risk Cholesterol in LDL Calc [Mas s/Vol]Ordered By: Lex Carroll on 09-21-2022 Cholesterol in LDL [Mass/Vol] 94 mg/dL 0-100 [facility] Comment on above: LDL ATP III CLASSIFI CATIONLDL less than 100 mg/dL OptimalLDL 100-129 mg/dL Near or above optimalLDL 130-159 mg/dL Borderline highLDL 160-189 mg/dL HighLDL greater than 189 mg/dL Very high Cholesterol in VLDL Calc [Ma ss/Vol]Ordered By: Lex Carroll on 09-21-2022 Cholesterol in VLDL [Mass/Vol] 21 mg/dL [facility] Creatinine [Mass/volume] in Serum or PlasmaOrdered By: Lex Carroll on 09-21-2022 Creatinine [Mass/Vol] 0.90 mg/dL 0.70-1.30 [facility] Eosinophils Auto (Bld) [#/Vo l]Ordered By: Lex Carroll on 09-21-2022 Eosinophils (Bld) [#/Vol] 0.2 10*3/uL 0.0-0.45 [facility] Eosinophils/100 WBC Auto (Bl d)Ordered By: Lex Carroll on 09-21-2022 Eosinophils/100 WBC (Bld) 3.6 % . [facility] Erythrocyte distribution wid th Auto (RBC) [Ratio]Ordered By: Lex Carroll on 09-21-2022 Erythrocyte distribution width (RBC) [Ratio] 14.2 % 12.0-14.8 [facility] Globulin Calc (S) [Mass/Vol] Ordered By: Lex Carroll on 09-21-2022 Globulin (S) [Mass/Vol] 2.8 g/dL [facility] Glucose [Mass/volume] in Ser um or PlasmaOrdered By: Lex Carroll on 09-21-2022 Glucose [Mass/Vol] 123 mg/dL 70-[address] [facility] Comment on above: ADA recommended refe rence rangeRandom Glucose Reference Range is dependent on time and content of last meal. Glucose of more than 200 mg/dL in a nonstressed, ambulatory subject supports the diagnosis of Diabetes Mellitus. Hematocrit Auto (Bld) [Volum e fraction]Ordered By: Lex Carroll on 09-21-2022 Hematocrit (Bld) [Volume fraction] 37.5 % 38.8-50.0 [facility] Hemoglobin [Mass/volume] in BloodOrdered By: Lex Carroll on 09-21-2022 Hemoglobin (Bld) [Mass/Vol] 12.9 g/dL 13.0-17.0 [facility] Hepatitis B virus surface Ag [Presence] in Serum or Plasma by ImmunoassayOrdered By: Lex Carroll on 09-21-2022 HBV surface Ag IA Ql Negative Negative [facility] Hepatitis C virus IgG Ab [Pr esence] in Serum or Plasma by ImmunoassayOrdered By: Lex Carroll on 09-21-2022 HCV IgG IA Ql Non-Reactive Non Reactive [facility] Laboratory - CoagulationOrde red By: Lex Carroll on 09-21-2022 PT Coag (PPP) [Time] 13.0 s 9.0-12.9 [facility] Leukocytes [#/volume] correc jamila for nucleated erythrocytes in Blood by Automated counOrdered By: Lex Carroll on 09-21-2022 WBC corrected for nucl RBC Auto (Bld) [#/Vol] 4.2 10*3/uL 4.1-10.5 [facility] Lymphocytes Auto (Bld) [#/Vo l]Ordered By: Lex Carroll on 09-21-2022 Lymphocytes (Bld) [#/Vol] 1.1 10*3/uL 1.00-4.8 [facility] Lymphocytes/100 WBC Auto (Bl d)Ordered By: Lex Carroll on 09-21-2022 Lymphocytes/100 WBC (Bld) 27.1 % . [facility] MCH Auto (RBC) [Entitic mass ]Ordered By: Lex Carroll on 09-21-2022 MCH (RBC) [Entitic mass] 35.0 pg 27.5-35.2 [facility] MCHC Auto (RBC) [Mass/Vol]Or dered By: Lex Carroll on 09-21-2022 MCHC (RBC) [Mass/Vol] 34.4 g/dL 32.5-35.6 [facility] MCV Auto (RBC) [Entitic vol] Ordered By: Lex Carroll on 09-21-2022 MCV (RBC) [Entitic vol] 101.9 fL 83.5-101 [facility] Monocytes Auto (Bld) [#/Vol] Ordered By: Lex Carroll on 09-21-2022 Monocytes (Bld) [#/Vol] 0.5 10*3/uL 0.0-0.8 [facility] Monocytes/100 WBC Auto (Bld) Ordered By: Lex Carroll on 09-21-2022 Monocytes/100 WBC (Bld) 11.3 % . [facility] Neutrophils Auto (Bld) [#/Vo l]Ordered By: Lex Carroll on 09-21-2022 Neutrophils (Bld) [#/Vol] 2.4 10*3/uL 1.8-7.7 [facility] Neutrophils/100 WBC Auto (Bl d)Ordered By: Lex Carroll on 09-21-2022 Neutrophils/100 WBC (Bld) 57.1 % . [facility] No Panel InformationOrdered By: Lex Carroll on 09-21-2022 Estimated GFR (CKD-EPI) > 60.0 mL/Min [facility] Hepatitis B Core Total Antibody Negative Negative [facility] Comment on above: Performed at: - [address] [id number] Director: John Tang PhD, Phone: [phone] Hepatitis C Interpretation See comment . [facility] Comment on above: Not infected with HC V unless early or acute infection issuspected (which may be delayed in an immunocompromisedindividual), or other evidence exists to indicate HCVinfection. Hepatitis C RNA Quantitative N/A [facility] Creatinine Clearance (Chem 88.23 [facility] Nucleated erythrocytes [Pres ence] in Blood by Automated countOrdered By: Lex Carroll on 09-21-2022 Nucleated RBC Auto Ql (Bld) 0.2 /100{WBC} 0-0.5 [facility] Platelet mean volume Auto (B ld) [Entitic vol]Ordered By: Lex Carroll on 09-21-2022 Platelet mean volume (Bld) [Entitic vol] 9.8 fL 6.6-10.1 [facility] Platelet poor plasma interna tional normalized ratio (INR) by coagulation assay (relatOrdered By: Lex Carroll on 09-21-2022 INR Coag (PPP) [Relative time] 1.1 {INR} [facility] Comment on above: INR Therapeutic Rang e [...] 09-21-2022 Platelets (Bld) [#/Vol] 91 10*3/uL 150-450 [facility] Potassium [Moles/volume] in Serum or PlasmaOrdered By: Lex Carroll on 09-21-2022 Potassium [Moles/Vol] 5.0 mmol/L 3.5-5.1 [facility] Protein [Mass/volume] in Ser um or PlasmaOrdered By: Lex Carroll on 09-21-2022 Protein [Mass/Vol] 6.4 g/dL 6.4-8.[address] [facility] RBC Auto (Bld) [#/Vol]Ordere d By: Lex Carroll on 09-21-2022 RBC (Bld) [#/Vol] 3.68 10*6/uL 3.90-5.60 [facility] Serum yspet-9-vncfyuclgzd me asurementOrdered By: Lex Carroll on 09-21-2022 Alpha 1 antitrypsin [Mass/Vol] 205 mg/dL 101-187 [facility] Serum hepatitis B virus surf waldo antibody detectionOrdered By: Lex Carroll on 09-21-2022 HBV surface Ab Ql (S) Non-Reactive . [facility] Comment on above: Non Reactive: Incons istent with immunity, less than 10 mIU/mL Reactive: Consistent with immunity, greater than 9.9 mIU/mL Serum mitochondria M2 IgG an tibody assay (units/volume)Ordered By: Lex Carroll on 09-21-2022 Mitochondria M2 IgG Qn (S) <20.0 Units 0.0-20.0 [facility] Comment on above: Negative 0.0 - 20.0 Equivocal 20.1 - 24.9 Positive >24.9Mitochondrial (M2) Antibodies are found in 90-96% ofpatients with primary biliary cirrhosis.Performed at: [place] [id number] Director: John Tang PhD, Phone: [phone] Serum or plasma albumin/glob ulin mass ratioOrdered By: Lex Carroll on 09-21-2022 Albumin/Globulin [Mass ratio] 1.3 {ratio} [facility] Serum or plasma alpha 1 anti trypsin phenotyping identification by immunofixationOrdered By: Lex Carroll on 09-21-2022 Alpha 1 antitrypsin phenotyping Immunofixation Nom Mm . [facility] Comment on above: Phenotype Population A-1-AT Concentration* [...] used to confirm phenotype.Performed at: [facility] [address] [id number] Director: John Tang PhD, Phone: [phone] at: [facility] [place] [address] [place], [place] [id number] Director: George Brown MD, Phone: [phone] Serum or plasma anion gap de terminationOrdered By: Lex Carroll on 09-21-2022 Anion gap [Moles/Vol] 11.1 mmol/L 6.0-15.0 [facility] Serum or plasma ceruloplasmi n measurement (mass/volume)Ordered By: Lex Carroll on 09-21-2022 Ceruloplasmin [Mass/Vol] 22.4 mg/dL 16.0-31.0 [facility] Comment on above: Performed at: [facility] [address] [id number] Director: John Tang PhD, Phone: [phone] Serum or plasma free cefurox nhi measurement (mass/volume)Ordered By: Lex Carroll on 09-21-2022 Cefuroxime free [Mass/Vol] Negative Negative [facility] Comment on above: Performed at: [facility] [address] [id number] Director: John Tang PhD, Phone: [phone] Serum or plasma high density lipoprotein (HDL) cholesterol measurementOrdered By: Lex Carroll on 09-21-2022 Cholesterol in HDL [Mass/Vol] 60 mg/dL 23-92 [facility] Comment on above: HDL CHOL ATP-III CLA SSIFICATION Cardiovascular RiskHDL > or equal to 60 mg/dL LOWHDL < 40 mg/dL HIGH Serum or plasma total choles terol/high density lipoprotein (HDL) cholesterol mass ratOrdered By: Lex Carroll on 09-21-2022 Cholesterol.total/Chol esterol in HDL [Mass ratio] 2.9 {ratio} <5.0 [facility] Sodium [Moles/volume] in Ser um or PlasmaOrdered By: Lex Carroll on 09-21-2022 Sodium [Moles/Vol] 141 mmol/L 136-[address] [facility] Triglyceride [Mass/volume] i n Serum or PlasmaOrdered By: Lex Carroll on 09-21-2022 Triglyceride [Mass/Vol] 107 mg/dL 0-149 [facility] Comment on above: TRIG ATP III CLASSIF ICATIONTRIG less than 150 mg/dL NormalTRIG 150-199 mg/dL Borderline highTRIG 200-500 mg/dL High TRIG greater than 500 mg/dL Very highStandard traceable to the Center for Disease Conrtrol and Prevention (CDC) test method. Urea nitrogen [Mass/volume] in Serum or PlasmaOrdered By: Lex Carroll on 09-21-2022 Urea nitrogen [Mass/Vol] 9 mg/dL 7- [facility] WBC Auto (Bld) [#/Vol]Ordere d By: Lex Carroll on 09-21-2022 WBC (Bld) [#/Vol] 4.2 10*3/uL 4.1-10.[address] [facility] PROGRESSon 04-05-2017 PROGRESS HNO ID: [id number] Author: Bebe Cunningham Ma Service: (none) Author Type: (none) Type: Progress Notes Filed: 04/05/2017 7:36 AM Note Text: PCP updated [facility] PROGRESS HNO ID: [id number] thor: Tanisha Clarkice: (none)Author Type: PhysicianType: Progress NotesFiled: 04/05/2017 7:36 AMNote Text:This note was created using Citilogriter.Marcio Blandon is a 61 year old male.Review of SystemsObjectiveThere were no vitals taken for this visit.Physical ExamAssessment and PlanPlease remove me as PCP if he is moving out of state and plans toestablish elsewhere.Thank you. [facility] HERNANDEZTOUTREACHomelisa 04-04-2017 [facility] Patient Outreach ([facility]) JAMIANATHANIEL Traore ([id number]) 1955 MDate Time Provider Kqbbmxgdpa45/19/17 TANISHA VAZQUEZ [facility] During your visit today, we recorded the following information about you:Bebe Cunningham Ma 04/05/2017 7:36 AM SignedSee refill request 03/30, pt moving to out of [facility] , do you want to updatePCPAmber MD Taylor 04/05/2017 7:36 AM SignedThis note was created using NoteWriter.SubjectiveWill jonathon E Jamia is a 61 year old male.Review of SystemsObjectiveThere were no vitals taken for this visit.Physical ExamAssessment and PlanPlease remove me as PCP if he is moving out of [facility] and plans [facility].Thank you.Bebe Cunningham Ma 04/05/2017 7:36 AM SignedPCP updatedAllergies As of Date: 04/04/2017 Noted Allergy ReactionBACTRIM (SULFAMETHOXAZOLE-TRIMETH *12/15/2014 2 - RashDate Reviewed: 01/04/2017Reviewed by: Bebe Cunningham Ma - Fully AssessedReason for Visit: PHMA/Care Gap Outreach [8737]Prescriptions as of 04/04/2017 Sig: METOPROLOL SUCCINATE ER [...] polyps [Z86.010]Follow-up and Disposition History RecordedEncounter Number: [id number] Status:Closed by BEBE CUNNINGHAM MA on 04/05/[address] [facility] PROGRESSon 04-04-2017 PROGRESS HNO ID: [id number] Author: Bebe Cunningham Ma Service: (none) Author Type: (none) Type: Progress Notes Filed: 04/05/2017 7:36 AM Note Text: See refill request 03/30, pt moving to out of [facility] , do you want to update PCP [facility] OBSOLETEon 03-30-2017 OBSOLETE Refill ([facility]) [facility]ON [facility][id number][facility] 1955 [facility] Byrmphoyog35/14/17 TANISHA VAZQUEZ [facility] During your visit today, we recorded [...] Status:Closed by VIRGINIA SAUCEDA CNP [facility]31[facility]) NATHANIEL BLANDON AM ([id number]) 1955 MDate Time Provider Ksabxknnqm25/30/17 5:50 PM NURSE EYAD COLLAZO [facility] During your visit today, we recorded [...] by JUNAID OFFICE MGR OTONIEL on 02/13/17 [facility] 02-13-2017 HOSP REFILL - MYCHART ([facility]) NATHANIEL BLANDON AM ([id number]) 1955 MDate Time Provider Xpifqbujvd35/30/17 TANISHA VAZQUEZ During your visit today, we recorded the following information about you:Bebe Cunningham Ma 02/13/2017 2:35 PM SignedMessage from [facility]:Original authorizing provider: Ruben Iqbal would like a refill of the following medications:zolpidem (AMBIEN) 10 mg tab [Tanisha Vazquez MD]Preferred pharmacy: [id number] [place] [address] - [id number] - [phone] [address] [id number]:Bebe Cunningham Ma 02/13/2017 2:38 PM SignedScript pending [...] TANISHA VAZQUEZ MD on 02/13/17 [facility] Nadia 01-04-2017 [facility] Office Visit ([facility]) NATHANIEL BLANDON AM ([id number]) 1955 MDate Time Provider Department01/04/17 9:00 AM TANISHA VAZQUEZ [facility] During your visit today, we recorded [...] 3V AP/LAT/OBL LTBAILEY Iqbalefhari Provider: TANISHA VAZQUEZ [[id number]]Allergies As of Date: 01/04/2017 Noted Allergy ReactionBACTRIM (SULFAMETHOXAZOLE-TRIMETH *12/15/2014 2 - RashDate Reviewed: 01/04/2017Reviewed by: Bebe Cunningham Ma - Fully AssessedReason for Visit: Acute Visit [896] Cmt: swollen toe x 2 weeksReason For Visit History RecordedPrimary Visit Diagnosis:Great toe pain, left [M79.675]Order(s):XR TOE AP/LAT/OBL LT [[id number]] Order #: [id number] FUTURE XR FOOT GENERAL 3V AP/LAT/OBL LT [[id number]] Order #: [id number] FUTUREPrescriptions as of 01/04/2017 Sig: METOPROLOL SUCCINATE [...] meals. Disc: Course of therapy completedEncounter Number: [id number] Status:Closed by TANISHA VAZQUEZ MD on 01/04/17 [facility] Jose Carlos 01-04-2017 [facility] Telephone ([facility]) JAMIA,WILLI AM E ([id number]) 1955 MDate Time Provider Department01/04/17 TANISHA VAZQUEZ [facility] During your visit today, we recorded [...] T TO ORTHOPAEDIC SURGERY [[id number]] Order #: [id number]: 1Prescriptions as of 01/04/2017 Sig: METOPROLOL SUCCINATE [...] by TANISHA VAZQUEZ MD on 01/04/17 [facility] 01-04-2017 PROGRESS HNO ID: [id number] thor: Jaclyn Lowe (Lisa) Ej: (none)Author Type: TechnicianType: Progress NotesFiled: 01/04/2017 9:36 AMNote Text: Radiology Service Progress NotePATIENT NAME: Charles AyalagMRN: [id number] OF SERVICE: January 04, 2017TIME: 9:36 AMPATIENT IDENTITY VERIFICATION COMPLETED USING TWO (2) METHODS: Patientconfirmed name verbally and Date of .PATIENT GENDER DATA: MalePATIENT RELEVANT IMPLANT DATA REVIEWED: Not ApplicableRADIOLOGY DEPARTMENT: General X-ray: Exam(s) Completed: Lower ExtremityX-Ray(s): Foot, Left and Wt. Bearing and Toes, Left:PERIPHERAL IV DATA: Not applicableSIGNED BY: Jaclyn Diaz, RRTSept2016 9:36 AM [facility] PROGRESS HNO ID: [id number] thor: Tanisha Arzateervice: (none)Author Type: PhysicianType: Progress NotesFiled: 01/04/2017 9:00 [...] allergiesREVIEW OF SYSTEMS:As noted in HPIPHYSICAL EXAMINATION: 997894DU: 172/93BP Site: Left ArmBP Position: SittingBP Cuff [...] GENERAL 3V AP/LAT/OBL LTTanisha Vazquez MD [facility] XR FOOT 3V AP/LAT/OBL LTon 0 01-04-2017 [...] phalanx with extension into the 1st IP joint.[employer] Mach[employer] Sales Representative: PSCB Transcribe Date/Time: Jan 04 2017 10:28ADictated by : MALORIE NICHOLS MDThis examination was interpreted and the report reviewed and electronically signed by: MALORIE NICHOLS MD on Jan 04 2017 2:47PM [id number] [facility] XR TOE 3V AP/LAT/OBL LTon XR TOE [...] phalanx with extension into the 1st IP joint.[employer] Mach[employer] Sales Representative: PSCB Transcribe Date/Time: Jan 04 2017 10:28ADictated by : MALORIE NICHOLS MDThis examination was interpreted and the report reviewed and electronically signed by: MALORIE NICHOLS MD on Jan 04 2017 2:47PM [id number] Normal [facility] 12-11-2016 [facility] Telephone ([facility]) NATHANIEL BLANDON AM ([id number]) 1955 MDate Time Provider Department12/11/16 COY BLANCHARD [facility] During your visit today, we recorded [...] Status:Closed by COY BLANCHARD MD on 12/12/16 [facility] CNOVon 12-10-2016 CN Office Visit ([facility]) JAMIANATHANIEL JOSEPH Traore ([id number]) 1955 MDate Time Provider Department12/10/16 9:30 AM COY BLANCHARD [facility] During your visit today, we recorded the following information about you: Temperature Pulse Blood pressure Weight 98.5 degrees 88/minute 158/92 95.7 kgMatthew Fracisco Blanchard MD, MD 12/10/2016 9:59 AM Leonidrakanjonathon Traore Jamia is a 61 [...] ?F) (Oral) Wt 95.7 kg (211 lb) TsL383% BMI 30.71 kg/m2BMI 30.71 kg/(m2)General: alert and [...] MG TABLET- URIC ACID BLOODMatthew Fracisco Blanchard MDHenry [facility] 12/10/2016 9:58 AM SignedPhlebotomy was performed [...] 1 URIC ACID BLOOD [SQURIC] Order #: [id number] as of 12/10/2016 Sig: METOPROLOL SUCCINATE ER [...] to improve.Follow-up and Disposition History RecordedEncounter Number: [id number] Status:Closed by COY BLANCHARD MD on 12/10/[address] [facility] PROGRESSon 12-10-2016 PROGRESS HNO ID: [id number] thor: ANABELLA Hawleyervice: (none)Author Type: PhysicianType: Progress NotesFiled: 12/10/2016 9:59 AMNote Text:Charles Blandon is a 61 year old male here complaining of left toe pain.According to the patient, he states [facility]. Last [...] URIC ACID BLOODMattjose juan Blanchard MD Normal [facility] Uric Acidon 12-10-2016 Urate 8.2 mg/dL High 4.0-8.1 [facility] Comment on above: Performed By: #### U BARB ####[facility] Lr[address]um[address] [place], [place] [phone] JAVIEROVsona 11-01-2016 [facility] Office Visit ([facility]) NATHANIEL BLANDON AM ([id number]) 1955 MDate Time Provider Department11/01/16 9:30 AM ROYCE ARAIZA During your visit today, we recorded the following information about you: Pulse Blood pressure 57/minute 165/82Aloserena Araiza MD 11/01/2016 2:06 PM SignedDERMATOLOGY CONSULT FOR MOHSSERVICE DATE: 11/01/2016PRIMARY CARE PHYSICIAN: MORENA Iqbal PROVIDER:Tanisha Vazquez MD[address] [facility] [address]Bczltfttyhbh requested for an opinion regarding the evaluation and treatmentof skin cancer. My final impression and recommendations will be communicatedback to the requesting physician by way of the shared medical record or lettervia US mail.SUBJECTIVECHIEF COMPLAINT: BCCHISTORY OF PRESENT ILLNESSBIOPSY INFORMATION:1. Pathology Results: BCC Nodular and Ulcerated of the LEFT TEMPLEReport Number: Inside Pathology [id number] Performed: 08/10/2016Performed By: [facility] ProviderPast Treatment: No Past Treatment Tumor Type: PrimaryPresent For: unknown amount of month(s)Signs ANDamp; Symptoms: Non-healingPAST DERM HISTORY: No History of Skin CancerFAMILY HISTORY: No History of Skin CancerPAST MEDICAL HISTORYDiagnosis Date- Recinos's esophagus- GERD (gastroesophageal reflux disease)- HTN (hypertension)- Hx of colonic polyps- Osteoporosis- Umbilical herniaPAST SURGICAL [id number]: CHOLECYSTECTOMYNo date: COLONOSCOPY Comment: every 3 yearsNo [...] Nose, Chin, Lips, Ears, Periauricular Skin and Mandaen)Pre-op Size: 0.6 cm - 1 cm, (0.7cm [...] and Past Histories independentlygathered by the clinical application support analyst and the remaining scribed noteaccurately describes my personal service to the patient.SIGNATURE: Royce Araiza MD PATIENT NAME: Charles AyalagDATE: November 01, 2016 : 10:20 AM PAGER/CONTACT #:MOHS MICROGRAPHIC OPERATIVE REPORTSERVICE DATE: 11/01/2016SERVICE TIME: 9:10 AMLOCATION:Celine Monzon [facility] [place], [place] [address]ZZZPTEAFR PROVIDER:Tanisha Vazquez MD[address] [facility] [address]TIBPKGMJL START TIME: 941PROCEDURE END TIME: URGEON: Dr. [...] Available at Bedside: Inside pathology report # [id number] Size: 0.6 cm - 1 cm, (0.7cm [...] surgery on a Primarytumor type from LEFT SYNAGOGUE (location of tumor).Post-op Defect Size: 1.0 x [...] GIVEN WITH VERBAL UNDERSTANDING: YesPATIENT DISCHARGED TO EMBEDDED SOFTWARE TEST ENGINEER/NAME: SelfFOLLOW UP: Return for wound care check in 6 weeksSee Dermatology yearly or as needed for FSE'sPRNThe documentation for this note was completed by Lis Serrano RN acting asscribe for Royce Araiza MD. November 01, 2016 10:29 AM.I agree with the Chief Complaint, ROS, and Past Histories independentlygathered by the clinical application support analyst and the remaining scribed noteaccurately describes my [...] SurgeryDepartment to speak to a Nurse at [phone].After 5 pm, nights, and weekends, please call [phone] or and ask for the dermatology surgery fellow space operations officer.Referring Provider: TANISHA VAZQUEZ [[id number]]Allergies As of Date: 11/01/2016 Noted Allergy ReactionBACTRIM (SULFAMETHOXAZOLE-TRIMETH *12/15/2014 2 - RashDate Reviewed: 11/01/2016Reviewed by: Royce Araiza - Fully AssessedPrimary Visit Diagnosis:Basal cell carcinoma of left baptism region [C44.319]Prescriptions as of 11/01/2016 Sig: METOPROLOL [...] Department to speak to a Nurse at [phone]. After 5 pm, nights, and weekends, please call [phone] or and ask for the dermatology surgery fellow space operations officer.Disposition: Return in about 6 weeks (around 12/13/2016) for WOUND CHECK.Follow-up and Disposition History RecordedEncounter Number: [id number] Status:Closed by ROYCE ARAIZA MD on 11/01/[address] [facility] PROGRESSon 11-01-2016 PROGRESS HNO ID: [id number] thor: Royce Lindoervice: (none)Author Type: PhysicianType: Progress NotesFiled: 11/01/2016 2:06 PMNote Text:DERMATOLOGY CONSULT FOR MOHSSERVICE DATE: 11/01/2016PRIMARY CARE PHYSICIAN: MORENA Iqbal PROVIDER:Tanisha Vazquez MD[address] [facility] [address]Objkjczzcgbt requested for an opinion regarding the evaluation andtreatment of skin cancer. My final impression and recommendations will becommunicated back to the requesting physician by way of the shared medicalrecord or letter via US mail.SUBJECTIVECHIEF COMPLAINT: BCCHISTORY OF PRESENT ILLNESSBIOPSY INFORMATION:1. Pathology Results: BCC Nodular and Ulcerated of the LEFT TEMPLEReport Number: Inside Pathology [id number] Performed: 08/10/2016Performed By: [facility] ProviderPast Treatment: No Past Treatment Tumor Type: PrimaryPresent For: unknown amount of month(s)Signs AND Symptoms: Non-healingPAST DERM HISTORY: No History of Skin CancerFAMILY HISTORY: No History of Skin CancerPAST MEDICAL HISTORYDiagnosis Date- Recinos's esophagus- GERD (gastroesophageal reflux disease)- HTN (hypertension)- Hx of colonic polyps- Osteoporosis- Umbilical herniaPAST SURGICAL [id number]: CHOLECYSTECTOMYNo date: COLONOSCOPY Comment: every 3 yearsNo [...] Eyebrows, Nose, Chin, Lips, Ears, Periauricular Skinand Mandaen)Pre-op Size: 0.6 cm - 1 cm, (0.7cm [...] and Past Histories independentlygathered by the clinical application support analyst and the remaining scribed noteaccurately describes my personal service to the patient.SIGNATURE: Royce Araiza MD PATIENT NAME: Charles AyalagDATE: November 01, 2016 : 10:20 AM PAGER/CONTACT #:MOHS MICROGRAPHIC OPERATIVE REPORTSERVICE DATE: 11/01/2016SERVICE TIME: 9:10 AMLOCATION:Celine TraoreAvalon [facility] [place], [place] [address]GOIMQYNWO PROVIDER:Tanisha Vazquez MD[address] [facility] [id number] START TIME: 941PROCEDURE END TIME: URGEON: Dr. [...] Available at Bedside: Inside pathology report # [id number] Size: 0.6 cm - 1 cm, (0.7cm X 0.8cm)Lymphadenopathy: NoneIndication for Mohs: Anatomic Location where lesion is prone to recur,Type of tumor, Age of patient and Ill-defined bordersLocation: Area H: (Mask Areas of the Face - Includes Central Face,Eyelids, Inner/Outer Canthi, Eyebrows, Nose, Chin, Lips, Ears,Periauricular Skin and Mandaen)Preparation: Povidone-iodineLAYER AThe patient was positioned, prepped with [...] surgery on aPrimary tumor type from LEFT SYNAGOGUE (location of tumor).Post-op Defect Size: 1.0 x [...] GIVEN WITH VERBAL UNDERSTANDING: YesPATIENT DISCHARGED TO EMBEDDED SOFTWARE TEST ENGINEER/NAME: SelfFOLLOW UP: Return for wound care check in 6 weeksSee Dermatology yearly or as needed for FSE'sPRNThe documentation for this note was completed by Lis Serrano RN acting asscribe for Royce Araiza MD. November 01, 2016 10:29 AM.I agree with the Chief Complaint, ROS, and Past Histories independentlygathered by the clinical application support analyst and the remaining scribed noteaccurately describes my personal service to the patient.SIGNATURE: Royce Araiza MD PATIENT NAME: Charles AyalagDATE: November 01, 2016 : 9:10 AM PAGER/CONTACT #: Normal [facility] CNNURSEon 10-17-2016 [facility] Nurse Visit ([facility]) NATHANIEL BLANDON AM ([id number]) 1955 MDate Time Provider Department10/17/16 7:00 AM NURSE EYAD COLLAZO [facility] During your visit today, we recorded the following information about you:Constance Mancuso [employer] 10/17/2016 1:46 PM SignedPhlebotomy was performed per the order of Tanisha Vazquez M.D.., accessing leftantecubital vein.Needle removed intact. Dressing secured with tape.Patient denies discomfort, dizziness, light-headedness, or weakness and leftthe office ambulatory..Referring Provider: TANISHA VAZQUEZ [[id number]]Allergies As of Date: 10/17/2016 Noted Allergy ReactionBACTRIM (SULFAMETHOXAZOLE-TRIMETH *12/15/2014 2 - RashDate Reviewed: 08/10/2016Reviewed by: Bebe Cunningham Ma - Fully AssessedVisit Diagnoses:Abnormal LFTs [R79.89] Elevated fasting blood sugar [R73.01]Order(s):COMP METABOLIC PANEL [SQCMP] Order #: [id number] HGB A1C [[id number]] Order #: [id number] as of 10/17/2016 Sig: METOPROLOL SUCCINATE ER [...] of colonic polyps [Z86.010]Visit Notes:>> Constance Mancuso [employer] [facility] Oct 17, 2016 1:42 PM Status: SignedPhlebotomy was performed per the order of Tanisha Vazquez M.D.., accessingleft antecubital vein.Needle removed intact. Dressing secured with tape.Patient denies discomfort, dizziness, light-headedness, or weakness andleft the office ambulatory.. Status:Closed by ELIDA LUISTIONCONSTANCE WYLIE on 10/17/[address] [facility] Comp Metabolic Panelon 10-17 Alanine aminotransferase (ALT) 38 U/L Normal 10-54 [facility] Comment on above: Performed By: #### C MP, HBA1C ####[facility] [place] [address] [phone] Albumin 4.1 g/dL Normal 3.9-4.9 [facility] Comment on above: Performed By: #### C MP, HBA1C ####[facility], [place] [phone] Alkaline phosphatase (ALP) 54 U/L Normal 36-108 [facility] Comment on above: Performed By: #### C MP, HBA1C ####[facility] [address] [place], [place] [phone] Anion gap 20 mmol/L High 9-18 [facility] Comment on above: Performed By: #### C MP, HBA1C ####[facility] [address] [place], [place] [phone] Aspartate aminotransferase (AST) 43 U/L High 14-40 [facility] Comment on above: Performed By: #### C MP, HBA1C ####[facility] [place] [phone] Bilirubin (total) 0.3 mg/dL Normal 0.2-1.3 [facility] Comment on above: Performed By: #### C MP, HBA1C ####[facility], [place] [phone] Calcium 9.5 mg/dL Normal 8.5-10.2 [facility] Comment on above: Performed By: #### C MP, HBA1C ####[facility] [place] [phone] Chloride 101 mmol/L Normal 97-105 [facility] Comment on above: Performed By: #### C MP, HBA1C ####[place] [address] [place] [phone] CO2 23 mmol/L Normal 22-30 [facility] Comment on above: Performed By: #### C MP, HBA1C ####[facility] [place] [phone] Creatinine 1.02 mg/dL Normal 0.73-1.22 [facility] Comment on above: Performed By: #### C MP, HBA1C ####[place] [address], [place] [phone] eGFR (non-black) mL/min/{1.73_m2} Normal [facility] Comment on above: Performed By: #### C MP, HBA1C ####[place] [address], [place] [phone] Result Comment: eGFR (Estimated GFR) Units of [...] Glucose mass conc 90 mg/dL Normal 74-99 [facility] Comment on above: Result Comment: The [place] Diabetes Association (ADA) provides guidance for cutoff [...] Standards of Medical Care in Diabetes 2016, [place] Diabetes Association. Diabetes Care. 2016.39(Suppl 1). Performed By: #### C MP, HBA1C ####[facility] [place], [place] [phone] Potassium molar conc 4.6 mmol/L Normal 3.7-5.1 [facility] Comment on above: Performed By: #### C MP, HBA1C ####[facility] [place] [phone] Protein 7.1 g/dL Normal 6.3-8.0 [facility] Comment on above: Performed By: #### C MP, HBA1C ####[facility] [place], [place] [phone] Sodium 144 mmol/L Normal 136-144 [facility] Comment on above: Performed By: #### C MP, HBA1C ####[facility] [place] [phone] Urea nitrogen 18 mg/dL Normal 9-24 [facility] Comment on above: Performed By: #### C MP, HBA1C ####[facility] [place], [place] [phone] Hemoglobin A1con 10-17-2016 Glucose mass conc 120 mg/dL Normal [facility] Comment on above: Result Comment: eAG: (Estimated average glucose) is a calculated value from HgbA1c and is business services representative of the average blood glucose level in the last 2-3 month period. Performed By: #### C MP, HBA1C ####[facility] [address] [place], [place] [phone] Hemoglobin A1c/Hemoglobin.total mass fraction (Bld) 5.8 % High 4.3-5.6 [facility] Comment on above: Result Comment: [place] Diabetes Association guidelines indicate that patients with HgbA1c in the range 5.7-6.4% are at increased risk for development of diabetes, and intervention by lifestyle modification may be beneficial. HgbA1c greater or equal to 6.5% is considered diagnostic of diabetes. Performed By: #### C MP, HBA1C ####[facility] [address] [place], [place] [phone] Vital Signs Date Time Vital Sign Value Performing Clinician Facility 07-05-2023 08:58-0400 Body weight 94.85 kg II Rusty Delgado Work Phone: [facility] 07-05-2023 08:58-0400 Diastolic blood pressure 71 mm[Hg] II Rusty Delgado Work Phone: [facility] 07-05-2023 08:58-0400 Heart rate 88 /min II Rusty Delgado Work Phone: [facility] 07-05-2023 08:58-0400 Systolic blood pressure 121 mm[Hg] II Rusty Delgado Work Phone: [facility] 06-13-2023 17:15-0500 Diastolic blood pressure 62 mm[Hg] II Rusty Delgado Work Phone: [facility] 06-13-2023 17:15-0500 Heart rate 72 /min II Rusty Delgado Work Phone: [facility] 06-13-2023 17:15-0500 Respiratory rate 20 /min II Rusty Delgado Work Phone: [facility] 06-13-2023 17:15-0500 SaO2% (BldA) [Mass fraction] 94 % II Rusty Delgado Work Phone: [facility] 06-13-2023 17:15-0500 Systolic blood pressure 101 mm[Hg] II Rusty Delgado Work Phone: [facility] 06-13-2023 13:38-0500 Body height 175.26 cm II Rusty Delgado Work Phone: [facility] 06-13-2023 13:38-0500 Body mass index (BMI) [Ratio] 31.1 kg/m2 II Rusty Delgado Work Phone: [facility] 06-13-2023 13:38-0500 Body weight 95.7 kg II Rusty Delgado Work Phone: [facility] 06-13-2023 12:05-0500 Body temperature 98.2 [degF] II Rusty Delgado Work Phone: [facility] 05-31-2023 15:07-0500 Body height 175.3 cm Janneth Itzkowitz DO Work Phone: [facility] 05-31-2023 15:07-0500 Body mass index (BMI) [Ratio] 32.05 kg/m2 Janneth Itzkowitz DO Work Phone: [facility] 05-31-2023 15:07-0500 Body weight 98.43 kg Janneth Itzkowitz DO Work Phone: [facility] 05-31-2023 15:07-0500 Diastolic blood pressure 72 mm[Hg] Janneth Itzkowitz DO Work Phone: [facility] 05-31-2023 15:07-0500 Systolic blood pressure 120 mm[Hg] Janneth Itzkowitz DO Work Phone: [facility] 05-23-2023 06:44-0500 Body height 175.26 cm II Rusty Delgado Work Phone: [facility] 05-23-2023 06:44-0500 Body weight 99.79 kg II Rusty Delgado Work Phone: [facility] 05-18-2023 14:04-0500 Body height 175.3 cm Janneth Itzkowitz DO Work Phone: [facility] 05-18-2023 14:04-0500 Body mass index (BMI) [Ratio] 32.78 kg/m2 Janneth Itzkowitz DO Work Phone: [facility] 05-18-2023 14:04-0500 Body weight 100.7 kg Janneth Itzkowitz DO Work Phone: [facility] 05-18-2023 14:04-0500 Diastolic blood pressure 74 mm[Hg] Janneth Itzkowitz DO Work Phone: [facility] 05-18-2023 14:04-0500 Systolic blood pressure 120 mm[Hg] Janneth Itzkowitz DO Work Phone: [facility] 04-12-2023 11:00-0500 Body height 175.26 cm Lorna Ortega Other [facility] 04-12-2023 11:00-0500 Body mass index (BMI) [Ratio] 33.22 kg/m2 Lorna Ortega Other [facility] [email or web address] Other 04-12-2023 11:00-0500 Body weight 102.06 kg Lorna Ortega Other [facility] [email or web address] Other 04-12-2023 11:00-0500 Body weight 102.05 kg JUDITH Delgado Work Phone: [facility] 04-12-2023 11:00-0500 Diastolic blood pressure 67 mm[Hg] Lorna Ortega Other [facility] 04-12-2023 11:00-0500 Systolic blood pressure 135 mm[Hg] Lorna Ortega Other [facility] 11-10-2022 11:00-0400 Body weight 99.79 kg Lorna Ortega Other [facility] [email or web address] Other 11-10-2022 11:00-0400 Diastolic blood pressure 74 mm[Hg] Lorna Ortega Other [facility] [email or web address] Other 11-10-2022 11:00-0400 Systolic blood pressure 127 mm[Hg] Lorna Raymonnaya Other [facility] [email or web address] Other 09-21-2022 08:49-0400 Diastolic blood pressure 78 mm[Hg] II Rusty Delgado Work Phone: [facility] 09-21-2022 08:49-0400 Heart rate 50 /min II Rusty Delgado Work Phone: [facility] 09-21-2022 08:49-0400 SaO2% (BldA) [Mass fraction] 99 % II Rusty Delgado Work Phone: [facility] 09-21-2022 08:49-0400 Systolic blood pressure 125 mm[Hg] II Rustyra Delgado Work Phone: [facility] 09-21-2022 07:36-0400 Body height 175.26 cm II Rusty Delgado Work Phone: [facility] 09-21-2022 07:36-0400 Body temperature 98.5 [degF] II Rusty Delgado Work Phone: [facility] 09-21-2022 07:36-0400 Body weight 95.25 kg II Rusty Delgado Work Phone: [facility] 09-21-2022 07:36-0400 Respiratory rate 16 /min II Rusty Delgado Work Phone: [facility] Encounters Encounter Date Encounter Type Care Provider Facility Start: 01-18-2024 End: 01-18-2024 Bamboo flowsheet Ira Walker DO Work Phone: [facility] Start: 01-18-2024 End: 01-18-2024 Bamboo flowsheet Ira Walker DO Work Phone: [facility] Start: 01-18-2024 End: 01-18-2024 ambulatory IRA WALKER Not Available Start: 01-03-2024 End: 01-03-2024 ambulatory II Rusty Delgado Work Phone: [facility] Work Phone: Start: 01-03-2024 End: 01-03-2024 Departed Referred II Rusty Delgado Work Phone: [facility] Start: 12-27-2023 ambulatory [facility] Start: 12-27-2023 End: 12-27-2023 ambulatory [facility] Start: 12-13-2023 End: 12-13-2023 ambulatory FABY ECHEVARRIA Not Available Start: 12-12-2023 End: 12-12-2023 ambulatory II Rusty Delgado Work Phone: [facility] Work Phone: Start: 12-12-2023 End: 12-12-2023 Departed Referred II Rusty Delgado Work Phone: [facility] Start: 12-08-2023 End: 12-08-2023 ambulatory II Rusty Delgado Work Phone: [facility] Work Phone: Start: 12-08-2023 End: 12-08-2023 Departed Referred II Rusty Delgado Work Phone: [facility] Start: 12-07-2023 Non-patient / Non-visit II Rusty Delgado [facility] Work Phone: Start: 12-07-2023 End: 12-07-2023 ambulatory II Rusty Delgado Work Phone: [facility] Work Phone: Start: 12-07-2023 End: 12-07-2023 Departed Referred II Rusty Delgado Work Phone: [facility] Start: 11-27-2023 End: 11-27-2023 ambulatory [facility] Start: 11-15-2023 End: 11-15-2023 ambulatory RUSTY Gomez DELGADO Not Available Start: 11-14-2023 End: 11-14-2023 ambulatory GENERIC [facility] Start: 11-08-2023 End: 11-08-2023 ambulatory ROSALINO LAMAS Not Available Start: 10-13-2023 ambulatory GENERIC [facility] Start: 10-13-2023 End: 10-13-2023 ambulatory [facility] Start: 10-09-2023 End: 10-09-2023 ambulatory JANNETH VILLEGAS Not Available Start: 10-03-2023 End: 10-03-2023 ambulatory JUDITH Delgado Work Phone: [facility] Work Phone: Start: 10-03-2023 End: 10-03-2023 Departed Referred II Rusty Delgado Work Phone: [facility] Start: 10-02-2023 End: 10-02-2023 ambulatory LYNDSEY PATEL Not Available Start: 09-25-2023 End: 09-25-2023 ambulatory ARIAS [facility] Start: 09-15-2023 End: 09-15-2023 ambulatory WARD ESPARZA Not Available Start: 09-05-2023 End: 09-05-2023 ambulatory WARD BENEDICT Not Available Start: 08-30-2023 End: 08-30-2023 ambulatory WARD ESPARZA Not Available Start: 08-22-2023 End: 08-22-2023 ambulatory [facility] Start: 08-07-2023 End: 08-07-2023 ambulatory [facility] Start: 07-18-2023 End: 07-18-2023 ambulatory FABY MARIEVIRGINIE Not Available Start: 07-12-2023 End: 07-13-2023 ambulatory Janneth H Itzkowitz Facility:[facility] Start: 07-12-2023 End: 07-12-2023 Patient encounter procedure Jourdan ARRIAZA [facility] Start: 07-05-2023 End: 07-05-2023 ambulatory II Rusty Delgado Work Phone: [facility] Work Phone: Start: 07-05-2023 End: 07-05-2023 Patient encounter procedure II Rusty Delgado Work Phone: [facility] Work Phone: Start: 06-29-2023 End: 06-29-2023 ambulatory JANNETH H ITZKOWITZ Not Available Start: 06-23-2023 ambulatory Janneth Itzkowitz Facil ity:[facility] Start: 06-22-2023 End: 06-22-2023 ambulatory JANNETH H ITZKOWITZ Not Available Start: 06-13-2023 End: 06-13-2023 Admission to same day surgery center II Rusty Delgado Work Phone: [facility] [place] Start: 06-13-2023 End: 06-13-2023 ambulatory Janneth Itzkowitz Facility:[facility] Start: 06-02-2023 End: 06-02-2023 Patient encounter procedure II Rusty Delgado Work Phone: [facility] Work Phone: Start: 06-02-2023 End: 06-02-2023 ambulatory II Rusty Delgado Work Phone: [facility] Work Phone: Start: 05-31-2023 End: 05-31-2023 Office outpatient visit 25 minutes Janneth H Itzkowitz DO Work Phone: [facility] Comment on above: Fissure in ano (Prim chinmay Dx) Start: 05-31-2023 End: 05-31-2023 ambulatory JANNEHT H ITZKOWITZ Not Available Start: 05-23-2023 End: 05-23-2023 Admission to same day surgery center II Rusty Delgado Work Phone: [facility] Work Phone: Start: 05-23-2023 End: 05-23-2023 ambulatory Rusty Delgado Facility:[facility] Start: 05-18-2023 End: 05-18-2023 Office outpatient new 45 minutes Janneth H Itzkowitz DO Work Phone: [facility] [employer] Comment on above: Fissure in ano Start: 05-18-2023 End: 05-18-2023 ambulatory JANNETH H ITZKOWITZ Not Available Start: 05-11-2023 End: 05-11-2023 ambulatory Lorna Ortega Other [employer] Other Start: 05-11-2023 Office outpatient visit 15 minutes Lorna Ortega [facility] Start: 04-28-2023 End: 04-28-2023 ambulatory Lorna Ortega Other [employer] Other Start: 04-28-2023 Telephone encounter Lorna Coates [facility] Start: 04-27-2023 End: 04-27-2023 ambulatory Lorna Ortega Other [employer] Other Start: 04-27-2023 Telephone encounter Lorna Coates [facility] Start: 04-26-2023 End: 04-26-2023 Patient encounter procedure II Rusty Delgado Work Phone: [facility] Work Phone: Start: 04-26-2023 End: 04-26-2023 ambulatory Rusty Delgado Facility:[facility] Start: 04-13-2023 End: 04-13-2023 ambulatory Lorna Ortega Other [employer] Other Start: 04-13-2023 Telephone encounter Lorna Coates [facility] Start: 04-12-2023 Office outpatient visit 25 minutes Lorna Ortega [facility] Start: 04-12-2023 Telephone encounter Lorna Coates [facility] Start: 04-12-2023 End: 04-12-2023 Patient encounter procedure II Rusty Delgado Work Phone: [facility] Work Phone: Start: 04-12-2023 End: 04-12-2023 ambulatory II Rusty Delgado Work Phone: [employer] Other Start: 04-12-2023 End: 04-12-2023 Patient encounter procedure II Rusty Delgado Work Phone: [facility] Work Phone: Start: 04-03-2023 End: 04-03-2023 ambulatory Lorna Ortega Other [employer] Other Start: 04-03-2023 Telephone encounter Lorna Coates [facility] Start: 03-30-2023 End: 03-30-2023 ambulatory RUSTY DELGADO Not Available Start: 03-24-2023 End: 03-24-2023 ambulatory RUSTY DELGADO Not Available Start: 03-24-2023 End: 03-24-2023 ambulatory RUSTY DELGADO Not Available Start: 11-18-2022 End: 11-18-2022 ambulatory Lorna Ortega Other [employer] Other Start: 11-18-2022 Telephone encounter Lorna Coates [facility] Start: 11-15-2022 End: 11-15-2022 ambulatory II Rusty Delgado Work Phone: [facility] Work Phone: Start: 11-15-2022 End: 11-15-2022 Patient encounter procedure II Rusty Delgado Work Phone: [facility] [place] Work Phone: Start: 11-10-2022 End: 11-10-2022 ambulatory Lorna Ortega Other [employer] Other Start: 11-10-2022 Office outpatient visit 15 minutes Lorna JENKINS [facility] Start: 11-03-2022 End: 11-03-2022 Patient encounter procedure II Rusty Delgado Work Phone: [facility] Work Phone: Start: 10-26-2022 End: 10-26-2022 ambulatory II Rusty Delgado Work Phone: [facility] Work Phone: Start: 10-26-2022 End: 10-26-2022 Departed Referred II Rusty Delgado Work Phone: [facility] Work Phone: Start: 10-26-2022 End: 10-26-2022 Patient encounter procedure II Rusty Delgado Work Phone: [facility] Work Phone: Start: 09-21-2022 End: 09-21-2022 Admission to same day surgery center II Rusty Delgado Work Phone: [facility] Work Phone: Start: 09-21-2022 End: 09-21-2022 ambulatory II Rusty Delgado Work Phone: [facility] Work Phone: Start: 02-13-2017 End: 02-13-2017 Ambulatory TANISHA VAZQUEZ [facility] Start: 01-04-2017 End: 01-04-2017 Ambulatory TANISHA VAZQUEZ [facility] Start: 12-10-2016 End: 12-10-2016 [facility] Start: 11-01-2016 End: 11-02-2016 Ambulatory ROYCE ARAIZA [facility] Start: 10-17-2016 End: 10-17-2016 Ambulatory TANISHA TAYLOR [facility] Procedures Date Procedure Procedure Detail Performing Clinician Start: 01-18-2024 Oph bmtry prtl coher intrfrmtry io lens pwr karla Ira Walker DO Work Phone: Start: 01-18-2024 End: 01-18-2024 [facility] medical xm&eval compre new pt 1/> vst Age-related nuclear cataract of both eyes Ira Walker DO Work Phone: Comment on above: Age-related nuclear cataract of both eye s (Primary Dx) Start: 06-13-2023 Excision of lesion of anus II Rusty thacker Work Phone: Start: 05-23-2023 Esophageal manometry II Rusty Delgado Work Phone: Start: 04-26-2023 Radionuclide gastric emptying study II Rusty Delgado Work Phone: Start: 11-15-2022 Ultrasonography of liver II Rusty Delgado Work Phone: Start: 11-03-2022 Ultrasound elastography of liver II Lamont Delgado Work Phone: Start: 09-21-2022 Esophagogastroduodenoscopy II Rusty thacker Work Phone: Start: 05-12-2022 Colonoscopy Janneth Villegas DO Work Phone: Start: 08-08-2019 Colonoscopy Ira Walker DO Work Phone: Plan of Treatment Date Care Activity Detail Author Start: 05-12-2032 Screening for malign ant neoplasm of colon [facility] Start: 08-07-2029 Screening for malign ant neoplasm of colon [facility] Start: 01-17-2026 Glaucoma screening Diabetes: R etinopathy Screening [facility] Start: 12-26-2024 Urine screening for protein Diabetes: Urine Protein Screening [facility] Start: 10-12-2024 Urine screening for protein Diabetes: Urine Protein Screening [facility] Start: 05-26-2024 Urine screening for protein Diabetes: Urine Protein Screening [facility] Start: 05-24-2024 Glaucoma screening Diabetes: R etinopathy Screening [facility] Start: 05-16-2024 End: 05-16-2024 Patient encounter procedure 05/16/2024 11:00 AM EST Office Visit [facility] [address] [facility] [address] [place] [address] Rusty Delgado MD [address] [facility] [address] [place] [address] [facility] Start: 02-22-2024 End: 02-22-2024 Patient encounter procedure 02/22/2024 9:00 AM EST Procedure Visit [facility] Ira Griffin DO [address] [place] [address] [facility] Start: 02-15-2024 Hemoglobin A1c measurement Diabetes: Hemoglobin A1C [facility] Start: 02-08-2024 End: 02-08-2024 Patient encounter procedure 02/08/2024 8:15 AM EDT Procedure Visit [facility] Ira Griffin DO [address] [place] [address] [facility] Start: 01-18-2024 End: 01-18-2024 Patient encounter procedure 01/18/2024 1:30 PM EDT Office Visit [facility] [address] [place] [phone] Ira Walker, DO [address] [place] [address] Arrived [facility] Comment on above: Arrived Start: 12-17-2023 Influenza vaccination Influenza Vacc ine (#1) [facility] Start: 08-24-2023 Hemoglobin A1c measurement Diabetes: Hemoglobin A1C [facility] Start: 06-13-2023 [facility] Start: 06-13-2023 [facility] Start: 06-13-2023 End: 06-13-2023 Patient encounter procedure 06/13/2023 1:30 PM EST Procedure Visit [facility] Janneth Villegas, DO [address] [place] [id number] [facility] Start: 06-09-2023 End: 06-09-2023 Patient encounter procedure 06/09/2023 10:30 AM EST [facility] [address] [place] [address] Janneth Villegas, DO [address] [place] [address] [facility] Start: 05-26-2023 Medicare Annual Well ness (AWV) Medicare Annual Wellness (AWV) [facility] Start: 05-23-2023 [facility] Start: 02-23-2023 Hemoglobin A1c measurement Diabetes: Hemoglobin A1C [facility] Start: 11-03-2022 [facility] Start: 11-03-2022 Ultrasound elastogra phy of liver Fibroscan (Not Applicable) [facility] Start: 10-26-2022 Ultrasound elastogra phy of liver DH [employer]an (Not Applicable) [facility] [facility] Start: 10-26-2022 [facility] Start: 09-21-2022 Hepatitis B core ant ibody measurement [facility] Start: 09-21-2022 End: 09-21-2022 [facility] Start: 1972 Urine screening for protein Diabetes: Urine Protein Screening [facility] Start: 08-03-1959 Pneumococcal Vaccine : 65+ Years (1 - PCV) Pneumococcal Vaccine: 65+ Years (1 - PCV) [facility] Start: 08-03-1959 Pneumococcal Vaccine : 65+ Years (1 of 2 - PCV) Pneumococcal Vaccine: 65+ Years (1 of 2 - PCV) [facility] Start: 1955 Medicare Annual Well ness (AWV) Medicare Annual Wellness (AWV) [facility] Start: 1955 Screening for malign ant neoplasm of colon [facility] Actin smooth muscle IgG Ab [Units/volume] in Serum [facility] Alpha 1 antitrypsin [Mass/volume] in Serum or Plasma [facility] Alpha 1 antitrypsin phenotyping [Identifier] in Serum or Plasma by Immunofixation [facility] Cefuroxime free [Mass/volume] in Serum or Plasma [facility] Ceruloplasmin [Mass/volume] in Serum or Plasma [facility] Hepatitis B virus galindo rface Ab [Presence] in Serum [facility] Hepatitis B virus galindo rface Ag [Presence] in Serum or Plasma by Immunoassay [facility] Hepatitis C virus Ig G Ab [Presence] in Serum or Plasma by Immunoassay [facility] Mitochondria M2 IgG Ab [Units/volume] in Serum [facility] Patient referral [facility] Work Phone: Immunizations Immunization Date Immunization Notes Care Provider Matt swan 01-24-2023 influenza virus vaccine, unspecified formulation Jourdan ARRIAZA [facility] 01-24-2023 Influenza, Seasonal, Quadrivalent, Adjuvanted Ira Walker DO Work Phone: [facility] 04-30-2022 zoster vaccine recombinant Janneth Itandrey DO Work Phone: [facility] 03-22-2022 tetanus toxoid, reduced diphtheria toxoid, and acellular pertussis vaccine, adsorbed Janneth Itzkowitz DO Work Phone: [facility] 02-01-2022 influenza virus vaccine, unspecified formulation Jourdan ARRIAZA [facility] 02-01-2022 influenza, high dose seasonal, preservative-free Janneth Itzkowitz DO Work Phone: [facility] 02-17-2021 influenza virus vaccine, unspecified formulation Quietyme [facility] 02-17-2021 influenza, high dose seasonal, preservative-free Janneth Itzkowitz DO Work Phone: [facility] 02-13-2017 influenza virus vaccine, unspecified formulation Quietyme [facility] 02-13-2017 influenza, injectabl e, quadrivalent, contains preservative Janneth Itzkowitz DO Work Phone: [facility] 02-01-2016 influenza virus vaccine, unspecified formulation [facility] 02-01-2016 influenza, seasonal, injectable Janneth Itzkowitz DO Work Phone: [facility] 03-24-2015 zoster vaccine, live Janneth Itzkowitz DO Work Phone: [facility] 02-10-2015 influenza virus vaccine, unspecified formulation Jourdan BeckonCall [facility] 02-10-2015 influenza, seasonal, injectable Janneth Itzkowitz DO Work Phone: [facility] 01-14-2014 influenza virus vaccine, unspecified formulation Jourdan BeckonCall [facility] 01-14-2014 influenza, seasonal, injectable Janneth Itzkowitz DO Work Phone: [facility] 01-23-2013 influenza virus vaccine, unspecified formulation Janneth Itzkowitz DO Work Phone: [facility] Payers Date Payer Category Payer Self-pay 2022 Medicare AETNA MEDICARE A DVANTAGE AETNA MEDICARE REPLACEMENT [id number] 2022-Present [address] [place] [address] [id number] 2002 Private Health Insurance [id number] 1953 Unknown [id number] 2.16.840.1.995251.3.579.2. 727 1953 Unknown [id number] 2.16.840.1.549125.3.579.2. 1258 1953 Unknown [id number] 2.16.840.1.100022.3.579.2. 1258 1953 Unknown [id number] 2.16.840.1.465783.3.579.2. 1258 1953 Unknown [id number] 2.16.840.1.539197.3.579.2. 9 1953 Unknown [id number] 2.16.840.1.261419.3.579.2. 125 1953 Unknown [id number] 2.16.840.1.426102.3.579.2. 125 1953 Unknown [id number] 2.16.840.1.857738.3.579.2. 125 1953 Unknown [id number] 2.16.840.1.421863.3.579.2. 1258 1953 Unknown [id number] 2.16.840.1.241811.3.579.2. 1259 1953 Unknown [id number] 2.16.840.1.189779.3.579.2. 1259 1953 Unknown [id number] 2.16.840.1.685741.3.579.2. 1258 1953 Unknown [id number] 2.16.840.1.186441.3.579.2. 1258 1953 Unknown [id number] 2..840.1.030928.3.579.2. 1258 1953 Unknown [id number] 2..840.1.390400.3.579.2. 1258 1953 Unknown [id number] 2..840.1.815372.3.579.2. 1258 1953 Unknown [id number] 2..840.1.977146.3.579.2. 1258 1953 Unknown [id number] 2.840.1.750674.3.579.2. 1259 Unknown [id number] 2.840.1.201538.3.579.2. 531 Unknown [id number] 2.840.1.131835.3.579.2. 531 Unknown [id number] 2.840.1.525633.3.579.2. 531 Unknown [id number] 2.16.840.1.282048.3.579.2. 531 Unknown [id number] 2.840.1.487304.3.579.2. 531 Unknown [id number] 2.840.1.785139.3.579.2. 531 Unknown [id number] 2.840.1.105612.3.579.2. 531 Unknown [id number] 2.840.1.361345.3.579.2. 531 Unknown [id number] 2.840.1.837581.3.579.2. 531 Social History Date Type Detail Facility Start: 09-21-2022 End: 11-08-2023 Tobacco smoking status TNIS Ex-smoker (finding) [facility] Start: 1955 Sex Assigned At Male [facility] Start: 05-18-2023 End: 12-12-2023 Sex Assigned At [facility] End: 04-17-1989 History of tobacco use Current smoker [facility] End: 04-17-1989 History of tobacco use Cigarette Smoker [facility] Start: 11-17-2022 End: 11-08-2023 Tobacco use and exposure Smokeless tobacco non-user [facility] Start: 05-18-2023 End: 12-12-2023 History of Social function [facility] Start: 1955 Sex Assigned At Not on file [facility] Tobacco smoking status No Smokin g Status Entered [facility] Start: 12-13-2023 End: 01-18-2024 Alcoholic beverage intake Current drinker of alcohol (finding) [facility] Start: 12-12-2023 How often do you need to have someone help you when you read instructions, pamphlets, or other written material from your doctor or pharmacy [SILS] Rarely [facility] Do you belong to any clubs or organizations such as jehovah's witness groups, unions, fraternal or athletic groups, or school groups? No [facility] Are you now , , , , never or living with a partner? [facility] How often to you hav e a drink containing alcohol? Never [facility] Do you feel stress - tense, restless, nervous, or anxious, or unable to sleep at night because your mind is troubled all the time - these days [OSQ] To some extent [facility] (I/We) worried wheth er (my/our) food would run out before (I/we) got money to buy more. Never true [facility] Start: 08-30-2023 Alcohol Comment 2-3 times per week, 1-2 drinks at a time [facility] Start: 12-12-2023 Gender identity Identifies as male gender (finding) [facility] Goals Date Patient Goal Desired Activity /State Clinical Notes 09-21-2022 to 01-18-2024 Ira Walker, - 01/18/2024 1:30 PM EDTFredbarb Villegas, DO - 05/31/2023 3:15 PM ESTFredric Padma Villegas, DO - 05/18/2023 2:00 PM EST Note Date & Type Note Facility 01-18-2024 History of Present illness Narrative Images from the original note were not included. Assessment/Plan Diagnoses and all orders for this visit: Age-related nuclear cataract of both eyes - Visually Significant Cataract, OU: I discussed the risks, benefits, alternatives, and expectations of cataract surgery. A complete ophthalmic exam was performed and it was determined that the cataracts were a primary source of vision decline, affecting activities of daily living, necessitating removal. Limited vision post-surgery may occur with pre-existing conditions affecting other areas of the eye or the brain was explained and the patient displayed an understanding. The overall objective is to improve ADLs, not eliminate glasses or restore vision to 20/20. Tests were reviewed - the different lens options were explained including the bkc-mb-mqrzmo fees for any upgrades. Intraocular lens (IOL) selection may be altered either prior to or during the procedure based on the doctor's discretion including reverting to a traditional intraocular lens (IOL). They understood that there will exist the potential of glasses prescription need post surgery for near, distance or possibly both. The patient stated a full understanding and a desire to proceed with the procedure. The patient received cataract measurements and had any additional questions answered. - A complete exam was performed including a physical exam: General: AAOx3 and NAD, Lungs: Clear, Heart: RRR, Abdomen: S/NT/ND, Extremities: no pitting edema. - Coordination of care will be shared with . Cataract Surgery for OS will take place - and OD - . documented in this encounter [facility] 12-29-2023 Note Attestation signed by Irena Johnson MD at 01/01/2024 8:49 AM I discussed the findings and therapeutic plan with the fellow. I agree with the documentation, except for any edits/updates below. I called and spoke with the patient and his , Fabiana. I confirmed with them that they should use Lasix 60 mg once daily as previously instructed, and they acknowledged this. [facility] 12-27-2023 Note Attestation signed by Irena [...] were changed during his recent hospitalization at [facility], therefore, will repeat labs Will change to [...] that the patient was recently hospitalized at [facility] for worsening ascites and shortness of breath. She reports that patient has fluid removed via thoracentesis and paracentesis. He has not undergone paracentesis since his hospital stay. She reports that d (more content not included)... [facility] 11-27-2023 Note Patient: Charles hernandez Procedure Summary Date: 11/27/23 Room / Location: [facility] [place] Anesthesia Start: 1041 Anesthesia Stop: 1107 Procedure: [...] per anesthesia protocol. No notable events documented. [facility] 11-27-2023 Note Patient: Charlse hernandez Procedure Summary Date: 11/27/23 Room / Location: [facility] Anesthesia Start: 1041 Anesthesia Stop: Procedure: EGD Diagnosis: Alcoholic cirrhosis of liver with ascites (CMS/HCC) Scheduled Providers: Irena Johnson MD; Jl Kent MD; VALDEMAR Heath Responsible Provider: Jl Kent MD Anesthesia Type: MAC ASA Status: 3 Anesthesia Post [facility] Patient Monitor: direct observation Transport: uneventful Patient condition is: stable [facility] 11-27-2023 Note Patient: Charles hernandez Procedure Information Date/Time: 11/27/23 1130 Scheduled providers: Irena Johnson MD; Jl Kent MD; VALDEMAR Heath Procedure: EGD Location: [facility] Relevant Problems Cardio Denies chest pain/SOB [...] Plan discussed with CAA. Additional Equipment Requests [facility] 11-08-2023 Note Refills provided [facility] 10-16-2023 Note Have received pt. Po rtion of PAP form still waiting on prescribers portion. Re faxed the forms over to GI. Send PAP forms in once prescribers portion is signed. Darnell Razo, [facility] 10/20/23 1:20 PM [facility] 10-16-2023 Note Patient assistance a pplication approved through [facility]. Approval good through 04/16/2024. Patient Case ID/Approval Number: [id number]. Notified patient and will follow up to confirm shipment/delivery is scheduled. Yamini aCmarillo, [facility] 10/23/23 10:11 AM [facility] 10-16-2023 Note Patient said the del george has been scheduled and is on its way. Aware they have to call [facility] every time they need a refill. Have no further questions. Will no longer follow up. Darnell Razo, [facility] 10/25/23 10:27 AM [facility] 10-16-2023 Note Emma MALDONADO approved through 04/10/2024, previous approval. Pt has not been on lactulose, prescribed lactulose on the same day as Xifaxan. Based on discussion with annual income for 2 people in the household is $52,000. Should qualify for PAP. Will email provider and pt portions. Carmella Olivo, BrijeshD, BCACP 10/16/23 1:56 PM [facility] [phone] [facility] 10-13-2023 Note I called and discuss ed the results of his labwork with the patient. With his sodium level being slightly below baseline, we will have him repeat his labs prior to EGD tomorrow. He expressed clear understanding. If he continues to have low sodium, we may need to consider holding diuretics. [facility] 10-13-2023 Note Attestation signed by Irena [...] function of stomach (more content not included)... [facility] 09-14-[address] ordered to rule o ut chronic mesenteric ischemia [facility] 08-07-2023 Note Attestation signed by Arias [...] % gel, Apply topically., Disp: , Rfl: bofwelrws-abkgxz-dxiudf-petrol 5-0.25-14.4-15 % cream, APPLY TO AFFECTED AREA [...] Rfl: zolpidem (A (more content not included)... [facility] 05-31-2023 History of Present illness Narrative [...] has been scheduled. documented in this encounter [facility] 05-18-2023 History of Present illness Narrative Images from the original note were not included. Charles Blandon 1955 Charles Blandon is a 67 y.o. male presents with chief complaint of painful hemorrhoid HPI: HPI Huber states he has a hemorrhoid for the last 5-6 weeks. He was seen by Dr. Carroll's [employer] who referred him to our office. Huber [...] weeks for recheck documented in this encounter [facility] 05-11-2023 Evaluation note Encounter Date Diagnosis Assessment Notes Apr, Nausea (ICD-10 - R11.0) Apr, Cirrhosis of liver (ICD-10 - K74.60) Apr, Early satiety (ICD-10 - R68.81) [employer] Other 12-28-2023 Evaluation note* Encounter Date Diagnosis Assessment Notes Treatment Notes Treatment Clinical Notes Mar, Lower abdominal pain (ICD-10 - R10.30) [employer] Other 12-27-2023 Evaluation note* Encounter Date Diagnosis [...] - R68.81) Mar, Bloating (ICD-10 - R14.0) [employer] Other 07-27-2023 Evaluation note* Encounter Date Diagnosis [...] a time. Pt advised to start probiotic (Mozaico) Pt RTO 3 MONTHS [employer] [facility] No data available for this section [facility] Evaluation noteNo assessment information available [facility] Work Phone: Evaluation noteNo InformationNortPenn State [facility] [email or web address] Other Evaluation note* Diagnosis Fissure in ano Anal fissure documented in this encounter [facility]* Diagnosis Fissure in ano- Primary Anal fissure documented in this encounter [facility]* Diagnosis Onset Date Resolution Status Cirrhosis acute Dyspepsia and disorder of function of stomach acute Emesis acute Esophageal dysmotility acute [facility] Work Phone: Evaluation note* Diagnosis Age-related nuclear cataract of both eyes- Primary documented in this encounter [facility] HealthcareHistory and physical note Author Lex Carroll [facility] September 21, 2022 8:04am Note Date/Time September 21, 2022 8:04a m [facility] [address] [place] [address] Gastroenterology H&P Signed Patient: Charles Blandon MR#: [id number] : 1955 Acct:[id number] Age/Sex: 67 / M Adm Date: 3 Loc: Room: Type: [facility] Attending Dr: Lex Carroll MD Copies to: [...] signed by Lex Carroll MD> 09/21/22 0804 [facility] Work Phone: History general Narrative - Reported* Type Description Date Medical History hypertension Medical History GERD Surgical History gallbladder Surgical History elbow surgery Surgical History mesh placement [employer] Other Hospital Discharge instructions Additional Instructions DISCHARGE [...] problems. -Follow up with PCP. -Office number [phone].[facility] Work Phone: Hospital Discharge instructions No data available for this section [facility] Progress note No data available for this section [facility] Summary Purpose Family History No Family History [...] section and content) DATE CREATED AUTHOR 10/10/2017 [facility] DATE CREATED AUTHOR AUTHOR'S ORGANIZ ATION 07/14/2023 [facility] DATE CREATED AUTHOR AUTHOR'S ORGANIZ ATION 01/05/2024 [facility] DATE CREATED AUTHOR AUTHOR'S ORGANIZ ATION 01/20/2024 [facility] EPIC DATE CREATED AUTHOR AUTHOR'S ORGANIZ ATION 01/30/2024 [facility] Care Teams (unrecognized sec tion and [...] Active Lorna Ortega APRN Attending Provider Active Scruff Worker Relationship Specialty Start Date End Date Rusty Delgado MD [address] [facility] [address] [place] [address] PCP - [employer] 04/17/22 Rusty Delgado MD [address] [facility] [address] [place] [address] PCP - General Internal Medicine 11/23/22 Scruff Worker Relationship Specialty Start Date End Date Rusty Delgado MD [address] [facility] [address] [place] [address] PCP - [employer] 04/17/22 Rusty Delgado MD [address] [place] [address] PCP - General Internal Medicine 11/23/22 Team Status: Inactive Member Role Status Rosa Ortega APRN Attending Provider Active Start: April [...] 2023 End: December 07, 2023 Devyn ANDRADE , Attending Provider Active Start: December 07, 2023 [...] 2023 Team Status: Active Member Role Status Dates Rusty Delgado II MD Primary Care Provider Active Start: December 07, 2023 Arias Wang DO Attending Provider Active Sta rt: December 07, 2023 Team Status: Inactive Member Role Status Dates Kin Hernandez MD Attending Provider Active Star t: January 03, 2024 End: January 03, 2024 Scruff Worker Relationship Specialty Start Date End Date Rusty Delgado MD [address] [facility] [address] [place] [address] PCP - [employer] 04/17/22 Rusty Delgado MD [address] [facility] [address] [place] [address] PCP - General Internal Medicine 11/23/22 Scruff Worker Relationship Specialty Start Date End Date Rusty Delgado MD [address] [facility] [address] [place] [address] PCP - [employer] 04/17/22 Rusty Delgado MD [address] [facility] [address] [place] [address] PCP - General Internal Medicine 11/23/22 REASON FOR VISIT (unrecogniz ed section and content) Reason Comments painful hemorrhoid Specialty Diagnoses / Procedures Referred By Contac t Referred To Contact General Surgery Diagnoses Unspecified hemorrhoids Procedures NE OFFICE/OUTPATIENT NEW HIGH MDM 60 MINUTES Lorna Ortega MD [address] [facility] [address] [place] [address] [facility] [address] [facility] [address] [place] [address] Referral ID Status Reason Start Date Expiration Date V isits Requested Visits Authorized [id number] Closed Specialty Services Required 05/12/2023 11/08/2023 1 1 Reason Comments pain increasingly worse and wants to dis cuss surgery Anal fissure Reason Comments Cataract Goals (unrecognized section and content) Goals may [...] BE BASED ON THE PRIMARY CLINICAL RECORDS. [employer] [facility]. provides no warranty or guarantee of the accuracy or completeness of information in this document.
[2024-02-12 14:13] LABS: Basophils Absolute Auto 0.1 10^3/uL (0.0-0.1); Eosinophils Absolute Auto 0.2 10^3/uL (0.0-0.7); Eosinophils Percent Auto 4.5 % (0.9-7.0); Hematocrit 38.2 % (42.0-54.0); Hemoglobin 13.1 g/dL (14.0-18.0); Immature Granulocytes Abs Auto 0.01 10^3/uL (0.00-0.03); Immature Granulocytes Pct Auto 0.2 % (0.0-0.5); Lymphocytes Percent Auto 19.5 % (20.5-60.0); Mean Corpuscular HGB Conc 34.3 g/dL (29.9-35.2); Mean Corpuscular Hemoglobin 34.7 pg (25.9-34.0); Mean Corpuscular Volume 101.1 fL (80.0-94.0); Monocytes Absolute Auto 0.6 10^3/uL (0.3-0.8); Monocytes Percent Auto 11.7 % (1.7-12.0); Neutrophils Absolute Auto 3.1 10^3/uL (1.4-6.5); Neutrophils Percent Auto 63.1 % (43.0-75.0); Platelet Count 149 10^3/uL (150-450); Red Blood Count 3.78 10^6/uL (4.70-6.10); Red Cell Distribution Width 15.6 % (11.0-15.0); White Blood Count 4.9 10^3/uL (4.0-11.0)
[2024-02-12 14:24] LABS: Prothrombin Time 12.5 sec (9.0-11.6)
[2024-02-12 14:41] LABS: BUN Creatinine Ratio 13.4; Calcium 8.8 mg/dL (8.5-10.1); Chloride 103 mmol/L (98-107); Estimated GFR (African America 51 (>=60 mL/min/1.73m^2); Estimated GFR (Non-African Ame 42 (>=60 mL/min/1.73m^2); Glucose 193 mg/dL (74-106); Sodium 137 mmol/L (136-145)
== END 2024-02-12 13:59 | disposition home or self-care (01) ==
LOC: LAB 14:00
PROVIDERS: PCP Internal Medicine
DX: K74.60 Unspecified cirrhosis of liver (principal); E87.1 Hypo-osmolality and hyponatremia
CPT/HCPCS: 36415; 80048; 85025; 85610

== ENCOUNTER 2024-02-21 12:54 | Outpatient (OUT) | payer MEDICARE, SELFPAY | END 2024-02-21 12:55 | disposition home or self-care (01) | LOC: PST 12:54 | PROVIDERS: PCP Internal Medicine; Visit Provider Ophthalmology | DX: Z01.818 Encounter for other preprocedural examination (principal); H25.11 Age-related nuclear cataract, right eye ==

== ENCOUNTER 2024-02-22 09:03 | Day surgery (SDC) | payer MEDICARE, SELFPAY ==
--- NOTE | 2024-02-22 | OP_ITS ---
OPERATION DATE: 02/22/2024 SURGEON: Renato Hopper D.O. PREOPERATIVE DIAGNOSIS: Nuclear sclerotic cataract right eye. POSTOPERATIVE DIAGNOSIS: Nuclear sclerotic cataract right eye. PROCEDURE NAME: Cataract extraction with intraocular lens placement of the right eye. ANESTHESIA: Topical ESTIMATED BLOOD LOSS: Zero. COMPLICATIONS: None. PROCEDURE: The patient was brought to the Operating Room in supine position. After proper identification, the right eye was prepped and draped in a sterile ophthalmic fashion. A paracentesis created at the 11 o'clock position. Approximately 1 cc of unpreserved Xylocaine was injected into the anterior chamber followed by Amvisc Plus. Using a 2.6 mm Keratome blade, a clear corneal incision was created at the 9 o'clock limbus. A cystotome was then used to begin a curvilinear capsulorrhexis that was continued for 360 degrees with the Utrata forceps. BSS on a 26 gauge cannula was injected beneath the anterior capsule to hydrodissect as well as hydrodelineate the lens. After ensuring mobility, phacoemulsification was performed in a vhdbwvp-iqx-plpukx-type fashion. After all nuclear material had been removed from the eye, IA was introduced and all residual cortical material was cleaned up. Additional Amvisc Plus was injected into the posterior bag and a lens model MX60, 19.5 diopters was injected and dialed into position. After ensuring centration, IA was reintroduced into the anterior chamber and all residual Amvisc Plus was removed from the eye. BSS on a 30 gauge cannula was injected into the stroma of both the clear corneal incision as well as paracentesis to hydrate the wounds. Additional BSS was injected into the anterior chamber to pressurize the eye at approximately 20 to 22 mmHg by finger tension. 0.1 cc of antibiotic was injected into the anterior chamber and Weck-Varsha sponges were used to check the wounds to be watertight. One drop of apraclonidine and one drop of prednisolone acetate placed into the eye and a shield was placed over top. The patient was sent to the postoperative area in satisfactory condition to follow up the following day for postoperative care. KRISTY
--- NOTE | 2024-02-22 09:03 | HP_ITS ---
PREOPERATIVE HISTORY AND PHYSICAL ? Date:? 02/21/2024 ? HISTORY:? The patient is a 68-year-old white male with complaints of declining vision out of his right eye.? The gradual onset of this has occurred over the last 2-3 years.? It has been progressive in nature, affecting both his distance as well as near and his activities of daily living at this time.? He states having difficulty at night time while driving due to the headlights and street lights creating glare and hallows.? He also states that he has difficulty reading and working on the computer. ? PAST OCULAR HISTORY:? Denies. ? PAST MEDICAL HISTORY:? 1.? Cirrhosis of the liver. 2.? GERD. 3.? History of colon polyps. 4.? Hypertension. ? SOCIAL HISTORY:? Denies tobacco, alcohol or recreational drug abuse.? ? SYSTEMIC MEDICATIONS:? Include magnesium oxide, baclofen, lansoprazole, triamterene hydrochlorothiazide, furosemide, spironolactone, famotidine, calcium carbonate, rifaximin, lisinopril, carvedilol and lactulose. ? ALLERGIES:? Denies. ? REVIEW OF SYSTEMS:? No pertinent positives. ? PHYSICAL EXAM:? GENERAL:? He is awake, alert and oriented x3, well developed, well nourished, in no acute distress.? ? HEART:? Regular rate and rhythm. ? LUNGS:? Clear bilaterally. ? ABDOMEN:? Soft, non-tender, non-distended. ? EXTREMITIES:? No pitting edema. ? OPHTHALMIC EXAM:? Revealed a visual acuity of 20/50 in the right, 20/200 in the left that glared to 20/100 ?and 20/400 right and left eye respectively.? Pupils motility, muscle balance, confrontational visual michelle within normal limits bilaterally.? Pressures were measured at 16 bilaterally.? Slit lamp exam revealed blepharitis with a severe decrease in tear film bilaterally.? Conjunctiva, cornea, anterior chamber and iris were within normal limits bilaterally.? Lens status demonstrated 2+ nuclear sclerosis with 2+ posterior subcapsular cataract and vacuoles in the right eye and 3+ nuclear sclerosis, 1+ posterior subcapsular cataract in the left eye.? ? FUNDUS EXAM:? Revealed a good view in the right, hazy view on the left.? Optic discs, macula, vessels, periphery and vitreous were within normal limits bilaterally.? ? ASSESSMENT AND PLAN:? Visually significant cataract, right eye.? After risks, benefits, alternatives, as well as expectations were delivered to the patient, he elected to go forward with cataract removal.? He understands the risks include but not limited to infection, bleeding, loss of vision, loss of the eye itself.? Secondly, he understands postoperatively he is likely to require spectacle correction for his best visual acuity.? Finally, a complete ophthalmic exam was performed, there is not determined to be any other source of visual decline other than that of the cataract.?? After understanding all the risks as well as expectations, he elected to go forward with cataract removal and will be doing so in the near future [facility]
--- OUTSIDE RECORDS SUMMARY | 2024-02-22 09:22 | XMS_ITS | CCD ---
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 Name Role Phone TAYLOR, TANISHA Unavailable Unavailable [...] Rusty Delgado MD Primary Care Provider [phone] MD Minh Griffith Attending Provider DO Janneth Villegas Attending Provider JUDITH Delgado Primary Care Provider TALA Ortega Attending Provider MD Minh Griffith Attending Provider DO Janneth Villegas Attending Provider [phone] RUSTY DELGADO Primary Care Physician Janneth Villegas Referring Unavailable Jourdan ARRIAZA Attending Unavailable JUDITH Delgado Primary Care Provider MD Ward Stern [facility], DO Devyn Attending Provider [facility], DO Devyn Attending Provider JUDITH Delgado Rusty Primary Care Provider MD Ward Stern Attending Provider MD Kin Hernandez V Attending Provider Rusty Delgado Primary Care Unavailable Lorna Ortega Admitting Unavailable ScLorna person Attending Unavailable Itzkojonahtan, Janneth Attending Unavailable Itzkoanattz, Janneth Admitting Unavailable Rusty Delgado Primary Care Unavailable Rusty Delgado Primary Care Unavailable Minh Griffith Admitting Unavailabl e Minh Griffith Attending Unavailabl e Itzkojonathan, Janneth Admitting Unavailable Itdaphne, Janneth Attending Unavailable Rusty Delgado Primary Care Unavailable Rusty Delgado Primary Care Unavailable Ward Stern Admitting Unavailable Ward Stern Attending Unavailable Kin Hernandez V Admitting Unavailable Kin Hernandez V Attending Unavailable Ward Stern Admitting Unavailable Ward Stern Attending Unavailable Rusty Delgado Primary Care Unavailable [facility], Devyn Admitting Unavailable [facility] Unavailable Rusty Delgado Primary Care Unavailable Rusty Delgado Primary Care Unavailable Lorna Ortega Admitting Unavailable Lorna Ortega Attending Unavailable BAKARI, JANNETH H Attending Unavailable LORNA ORTEGA Referring Unavailable ITDAPHNE, JANNETH H Attending Unavailable ITZCATALINA, JANNETH H Attending Unavailable ITJANNETH SERNA H Attending Unavailable FABY ECHEVARRIA Attending Unavailable ISAIAS, WARD Attending Unavailable FABY ECHEVARRIA Referring Unavailable RUSTY DELGADO Attending Unavailable RUSTY DELGADO Referring Unavailable WARD ESPARZA Referring Unavailable WARD ESPARZA Referring Unavailable LYNDSEY PATEL Attending Unavailable WARD ESPARZA Referring Unavailable ROSALINO LAMAS Attending Unavailable RUSTY DELGADO Attending Unavailable RUSTY DELGADO Attending Unavailable FABY ECHEVARRIA Attending Unavailable IRA WALKER Attending Unavailable DEVAUGHN SMITH Referring Unavailable IRENA JOHNSON Attending Unavailable RESEARCH, GENERIC Referring Unavailable JOHNSON, IRENA Referring Unavailable JOHNSON, IRENA Admitting Unavailable TRACY JOHNSONA Attending Unavailable IRENA JOHNSON Referring Unavailable ARIAS JESUS Attending Unavailable ANN MARIE, ARIAS Referring Unavailable JESUS, ARIAS Admitting Unavailable JESUS, ARIAS Referring Unavailable JESUS, ARIAS Referring Unavailable JESUS FERRO Admitting Unavailable JOHNSON, IRENA Referring Unavailable ARSHAD, ROSA Attending Unavailable IRENA JOHNSON Attending Unavailable SAFI, AWA Referring Unavailable DANNI KENT Attending Unavailable EMMANUEL SHEEHAN Referring Unavailable LINETTE JAQUEZ Attending Unavailable ANN MARIE, ARIAS Attending Unavailable Allergies Allergy Classification Reported Allergen(s) Allergy Type Date of Onset Reaction(s) Facility (1 source) sulfamethoxazole / trimethoprim; Translations: [SULFAMETHOXAZOLE-TR IMETHOPRIM] Drug Allergy 5 [facility] Repository Medications Current Medications Medication [...] 0 Active baclofen 20 mg oral tablet (11 sources) gamma-Aminobutyric Acid-ergic Agonist Start: 07-05-2023 take 20 mg by mouth once daily at bedtime Baclofen Active 20 MG PO Daily at bedtime July 05, 2023 12:00am baclofen (Liores al) 20 MG tablet Take by mouth 3 (three) times a day PRN Active calcium carbonate 1250 mg / cholecalciferol 125 unt oral tablet (12 sources) Vitamin D Start: 06-02-2023 take 1 tablet by mouth once daily Calcium Carb-Cholecalciferol (Calcium 500 + D) 500-3.125 MG-MCG tablet Take 1 tablet by mouth 1 (one) time each day 06/02/2023 Active carvedilol 3.125 mg oral tablet (3 sources) alpha-Adrenergic Nikunj, beta-Adrenergic Nikunj Start: 12-27-2023 [...] 1:00am ketorolac tromethamine 5 mg/ml ophthalmic solution (3 sources) Nonsteroidal Anti-inflammatory Drug, Cyclooxygenase Inhibitor Start: 01-18-2024 End: 02-17-2024 take 1 drop(s) into the eye(s) in the morning ketorolac (Acular) 0.5 % ophthalmic solution Indications: Age-related nuclear cataract of both eyes Administer 1 drop into affected eye(s) in the morning and 1 drop before bedtime. 5 mL 1 01/18/2024 02/17/2024 Active lactulose 667 mg/ml oral solution (3 sources) Osmotic Laxative Start: 01-16-2024 lactulose (Chronulac) 10 GM/15ML solution 01/16/2024 Active lansoprazole 30 mg delayed release oral capsule (11 sources) Proton Pump Inhibitor Start: 07-05-2023 take [...] Active magnesium oxide 400 mg oral tablet (4 sources) magnesium oxide (Mag-Ox) 400 MG tablet Take 500 mg by mouth in the morning. Active Multiple Vitamins-Minerals (Multi For Him) tablet (7 sources) Multiple Vitamins-Minerals (Multi For Him) tablet [...] 02/01/2024 Active rifAXIMin 550 mg oral tablet (3 sources) Rifamycin Antibacterial Start: 10-26-2023 take 1 [...] June 13, 2023 July 05, 2023 9:01am adrnrbz-bluxjsuta-miud 333-133-5 MG per tablet (1 source) End: 05-18-2023 calcium-magnesium -zinc 333-133-5 MG per tablet Take 1 tablet by mouth in the morning and 1 tablet at noon and 1 tablet in the evening. Take with meals. 0 05/18/2023 Discontinued hydroCHLOROthiazide 25 mg / triamterene 37.5 mg oral capsule (20 sources) Potassium-spari ng Diuretic, Thiazide Diuretic Start: 06-13-2023 End: 07-05-2023 Triamterene-Birdsnest chlorothiazid Discontinued CAP June 13, 2023 1:00am [...] failure, unspecified] Onset: 4 Episodic Alcohol-related disorders (6 sources) Alcoholic cirrhosis; Translations: [Alcoholic cirrhosis of liver with ascites] Onset: 4 12-13-2023 Chronic Aortic; peripheral; and visceral artery aneurysms (4 sources) Aortic root dilatation; Translations: [Thoracic aortic ectasia] Onset: 4 12-21-2023 Chronic Cardiac dysrhythmias (4 sources) Multiple premature ventricular complexes; Translations: [Ventricular premature depolarization] Onset: 8 12-13-2023 Chronic Cataract (20 sources) Nuclear senile cataract; Translations: [Age-related nuclear cataract, bilateral] Onset: 3 11-17-2022 Chronic Coagulation and hemorrhagic disorders (16 sources) Thrombocytopenic disorder; Translations: [Thrombocytopenia, unspecified] Onset: 3 11-17-2022 Chronic Disorders of lipid metabolism (16 sources) Dyslipidemia; Translations: [Hyperlipidemia, unspecified] Onset: 3 11-17-2022 Chronic Esophageal disorders (20 sources) Recinos's esophagus; 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] Onset: 3 Chronic Fluid and electrolyte disorders (2 sources) Hypo-osmolality and hyponatremia; Translations: [Hypo-osmolality and hyponatremia] Onset: 4 Episodic Osteoporosis (7 sources) Osteoporosis; Translations: [Age-related osteoporosis without current [...] of stomach] 07-05-2023 Episodic Other eye disorders (16 sources) 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; Translations: [Crystalline [...] [Other fecal abnormalities] Episodic Other gastrointestinal disorders (5 sources) Ascites; Translations: [Other ascites] Onset: 4 12-13-2023 Episodic Other liver diseases (16 sources) Steatosis of liver; Translations: [Fatty (change of) liver, not elsewhere classified] Onset: 3 11-17-2022 Chronic Other liver diseases (1 source) Fatty (change of) liver, not elsewhere classified Chronic Other liver diseases (18 sources) Cirrhosis of liver; Translations: [Unspecified cirrhosis [...] Onset: 4 Episodic Other lower respiratory disease (4 sources) Dyspnea on exertion; Translations: [Other forms of dyspnea] Onset: 4 12-13-2023 Episodic Other lower respiratory disease (2 sources) Other forms of dyspnea; Translations: [Other forms of dyspnea] Onset: 4 Episodic Other nutritional; endocrine; and metabolic disorders (16 sources) Metabolic syndrome X; Translations: [Metabolic syndrome] Onset: 3 11-17-2022 Chronic Pleurisy; pneumothorax; pulmonary collapse (2 sources) Pleural effusion, not elsewhere classified; Translations: [Pleural effusion, not elsewhere classified] Onset: 4 Episodic Residual codes; unclassified (6 sources) Edema; Translations: [Localized edema] Episodic Residual codes; unclassified (6 sources) Early satiety; Translations: [Early satiety] Episodic Residual codes; unclassified (1 source) Localized edema Episodic Retinal detachments; defects; vascular occlusion; and retinopathy (16 sources) Epiretinal membrane; 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, bilateral] Onset: 3 11-17-2022 Chronic Unclassified (1 source) Unknown / UNK(Unknown) Onset: 7 Unclassified (1 source) Second degree hemorrhoids; Translations: [Second degree hemorrhoids] Onset: 4 Unclassified (1 source) Encounter for preprocedural laboratory examination; Translations: [Encounter for preprocedural laboratory examination] Onset: 4 Past or Other Problems Problem Classification Problem Date Documented Da te Episodic/Chronic Abdominal hernia (7 sources) Incisional hernia; Translations: [Incisional hernia without obstruction or gangrene] Onset: 12-06-2012 03-21-2023 Episodic Abdominal pain (6 sources) Lower abdominal pain, unspecified; Translations: [Epigastric pain] Onset: 05-23-2023 Episodic Anal and rectal conditions (10 sources) Anal fissure; Translations: [Anal fissure, unspecified] Onset: 05-18-2023 05-18-2023 Episodic Deficiency and other anemia (2 sources) Anemia, unspecified; Translations: [Anemia, unspecified] Onset: 08-07-2023 Episodic Diabetes mellitus without complication (16 sources) Type 2 diabetes mellitus without complication; Translations: [Type 2 diabetes mellitus without complications] Onset: 11-17-2022 Resolved: 11-15-2023 11-17-2022 Chronic Essential hypertension (20 sources) Benign essential hypertension; Translations: [Essential (primary) hypertension] Onset: 11-26-2012 Resolved: 11-15-2023 11-17-2022 Chronic Hemorrhoids (11 sources) Internal hemorrhoids grade II; Translations: [Second degree hemorrhoids] Onset: 06-22-2023 06-13-2023 Episodic Nausea and vomiting (20 sources) Nausea; Translations: [Nausea] Onset: 04-26-2023 Episodic Other and unspecified benign neoplasm (16 sources) History of polyp of colon; Translations: [Personal history of colonic polyps] Onset: 03-21-2023 03-21-2023 Episodic Other connective tissue disease (1 source) Pain in left toe(s); Translations: [Pain in left toe(s)] Onset: 01-04-2017 Episodic Other connective tissue disease (7 sources) Muscle pain; Translations: [Myalgia, unspecified site] Onset: 03-16-2023 03-16-2023 Episodic Other gastrointestinal disorders (3 sources) Abdominal distension (gaseous); Translations: [Abdominal distension (gaseous)] Onset: 08-22-2023 Episodic Other gastrointestinal disorders (1 source) Other ascites; Translations: [Other ascites] Onset: 08-03-2023 Episodic Other non-epithelial cancer of skin (4 sources) Basal cell carcinoma of skin; Translations: [Basal cell carcinoma of skin, unspecified] Onset: 06-27-2017 08-30-2023 Episodic Other nutritional; endocrine; and metabolic disorders (4 sources) Abnormal weight loss; Translations: [Abnormal weight loss] Onset: 07-18-2023 07-18-2023 Episodic Residual codes; unclassified (16 sources) Insomnia; Translations: [Insomnia, unspecified] Onset: 11-17-2022 11-17-2022 Episodic Residual codes; unclassified (3 sources) Early satiety; Translations: [Early satiety] Onset: 04-26-2023 Episodic Residual codes; unclassified (4 sources) Transient alteration of awareness; Translations: [Transient alteration of awareness] Onset: 07-18-2023 07-18-2023 Episodic Results Test Name Value Interpretation Reference Range Facility AFB CULTURE 02-20-2024 AFB STAIN No acid fast bacilli seen Normal [facility] Comment on above: Performed By: #### L [id number] ####[facility] ([facility])[address] [place] [address] AMYLASE, BODY FLUIDon 2023 AMYLASE (U/L) IN BODY FLUID 18 U/L Normal [facility] Comment on above: Result Comment: The reference range and other method performance specifications have not been established for this test in fluids. the test result should be integrated into the clinical context for interpretation. Performed By: #### L [id number] ####[facility] ([facility])[address] [place] [address] BODY FLUID CELL DIFFERENTIAL on 02-20-2024 BASOPHILS TOTAL PER COUNTED LEUKOCYTES IN BODY FLUID BY MANUAL COUNT [facility] Comment on above: Order Comment: Diffe rential performed on cytospin Performed By: #### L [id number] ####[facility] ([facility])[address] [place] [address] CELLS COUNTED TOTAL (#) IN BODY FLUID 100 Normal [facility] Comment on above: Order Comment: Diffe rential performed on cytospin Performed By: #### L [id number] ####[facility] ([facility])[address] [place] [address] EOSINOPHILS TOTAL PER COUNTED LEUKOCYTES IN BODY FLUID BY MANUAL COUNT [facility] Comment on above: Order Comment: Diffe rential performed on cytospin Performed By: #### L [id number] ####[facility] ([facility] [place] [address] LYMPHOCYTES TOTAL PER COUNTED LEUKOCYTES IN BODY FLUID BY MANUAL COUNT 79 Normal [facility] Comment on above: Order Comment: Diffe rential performed on cytospin Performed By: #### L [id number] ####[facility] ([facility])[address] [place] [address] MESOTHELIAL CELLS TOTAL PER COUNTED LEUKOCYTES IN BODY FLUID BY MANUAL COUN 20 Normal [facility] Comment on above: Order Comment: Diffe rential performed on cytospin Performed By: #### L [id number] ####[facility] ([facility])[address] [facility] [place] [address] MONOCYTES+MACROPHAGES TOTAL PER COUNTED LEUKOCYTES IN BODY FLUID BY MANUAL Normal [facility] Comment on above: Order Comment: Diffe rential performed on cytospin Performed By: #### L [id number] ####[facility] ([facility])[address] [facility] [place] [address] NEUTROPHILS TOTAL PER COUNTED LEUKOCYTES IN BODY FLUID BY MANUAL COUNT 1 Normal [facility] Comment on above: Order Comment: Diffe rential performed on cytospin Performed By: #### L [id number] ####[facility] ([facility])[address] [place] [address] OTHER CELLS BODY FLUID (MANUAL) Normal [facility] Comment on above: Order Comment: Diffe rential performed on cytospin Performed By: #### L [id number] ####[facility] ([facility])[address] [place] [address] BODY FLUID CULTUREon 024 Bacteria identified Cx Nom (Unsp spec) No growth at 18-24 hours Normal [facility] Comment on above: Performed By: #### L [id number] ####[facility] ([facility])[address] [place] [address] GRAM STAIN RESULT Normal [facility] Comment on above: Result Comment: Poly morphonuclear leukocytes No organisms seen Cytocentrifuge sample Performed By: #### L [id number] ####[facility] ([facility])[address] [place] [address] CBCon 02-20-2024 Erythrocyte distribution width (RBC) [Ratio] 16.0 % High 11.5-15.0 [facility] Comment on above: Performed By: #### L [id number] ####[facility] ([facility])[address] [place] [address] ERYTHROCYTE MEAN CORPUSCULAR HEMOGLOBIN CONCENTRATION (G/DL) BY AUTOMATED 34.2 g/dL Normal 32.0-35.0 [facility] Comment on above: Performed By: #### L [id number] ####[facility] ([facility])[address] [place] [address] Hematocrit (Bld) [Volume fraction] 33.6 % Low 39.0-55.0 [facility] Comment on above: Performed By: #### L [id number] ####[facility] ([facility])[address] [place] [address] Hemoglobin (Bld) [Mass/Vol] 11.5 g/dL Low 13.0-17.0 [facility] Comment on above: Performed By: #### L [id number] ####[facility] ([facility])[address] [place] [address] IMMATURE PLATELET FRACTION % 1.7 % Normal 0.8-6.3 [facility] Comment on above: Performed By: #### L [id number] ####[facility] ([facility])[address] [place] [address] MCH (RBC) [Entitic mass] 34.0 pg High 27.0-33.0 [facility] Comment on above: Performed By: #### L [id number] ####[facility] ([facility])[address] [place] [address] MCV (RBC) [Entitic vol] 99.4 fL High 82.0-98.0 [facility] Comment on above: Performed By: #### L [id number] ####[facility] ([facility])[address] [place] [address] PLATELETS (10*3/UL) IN BLOOD AUTOMATED COUNT 119 10*3/uL Low 150-400 [facility] Comment on above: Performed By: #### L [id number] ####[facility] ([facility])[address] [place] [address] RBC (Bld) [#/Vol] 3.38 10*6/uL Low 4.20-5.70 [facility] Comment on above: Performed By: #### L [id number] ####[facility] ([facility])[address] [place] [address] WBC (Bld) [#/Vol] 4.26 10*3/uL Normal 4.00-10.60 [facility] Comment on above: Performed By: #### L [id number] ####[facility] ([facility] [place] [address] CHOLESTEROL, BODY FLUIDon CHOLESTEROL (MG/DL) IN BODY FLUID <25 Normal [facility] Comment on above: Performed By: #### L [id number] #### [facility] ([facility]) [address] [place] [address] COMPREHENSIVE METABOLIC PANE Mayito 02-20-2024 Albumin [Mass/Vol] 2.6 g/dL Low 3.5-5.7 [facility] Comment on above: Performed By: #### L [id number] ####[facility] ([facility])[address] [place] [address] ALP [Catalytic activity/Vol] 89 U/L Normal 34-104 [facility] Comment on above: Performed By: #### L [id number] ####[facility] ([facility])[address] [place] [address] ALT [Catalytic activity/Vol] 20 U/L Normal 7-52 [facility] Comment on above: Performed By: #### L [id number] ####[facility] ([facility])[address] [place] [address] Anion gap [Moles/Vol] 8 mmol/L Normal 7-[address] [facility] Comment on above: Performed By: #### L [id number] ####[facility] ([facility])[address] [place] [address] AST [Catalytic activity/Vol] 35 U/L Normal 13-39 [facility] Comment on above: Performed By: #### L [id number] ####[facility] ([facility])[address] [place] [address] Bilirubin [Mass/Vol] 1.5 mg/dL High 0.3-1.0 [facility] Comment on above: Performed By: #### L [id number] ####[facility] ([facility])[address] [place] [address] Calcium [Mass/Vol] 8.4 mg/dL Low 8.6-10.3 [facility] Comment on above: Performed By: #### L [id number] ####[facility] ([facility])[address] [place] [address] Chloride [Moles/Vol] 105 mmol/L Normal 98-107 [facility] Comment on above: Performed By: #### L [id number] ####[facility] ([facility])[address] [place] [address] CO2 [Moles/Vol] 25 mmol/L Normal 21-[address] [facility] Comment on above: Performed By: #### L [id number] ####[facility] ([facility])[address] [place] [address] Creatinine [Mass/Vol] 1.09 mg/dL Normal 0.70-1.[address] [facility] Comment on above: Performed By: #### L [id number] ####[facility] ([facility])[address] [place] [address] GLOMERULAR FILTRATION RATE ML/MIN/1.73 SQ M.PREDICTED 73.0 mL/min/1.73m*2 Normal >60.0 [facility] Comment on above: Result Comment: The [facility]???s estimated glomerular filtration rate (eGFR) will [...] of individuals. Performed By: #### L [id number] ####[facility] ([facility])[address] [place] [address] Glucose [Mass/Vol] 103 mg/dL High 70-100 [facility] Comment on above: Performed By: #### L [id number] ####[facility] ([facility])[address] [place] [address] Potassium [Moles/Vol] 4.3 mmol/L Normal 3.5-5.[address] [facility] Comment on above: Performed By: #### L [id number] ####[facility] ([facility])[address] [place] [address] Protein [Mass/Vol] 6.0 g/dL Normal 6.0-8.3 [facility] Comment on above: Performed By: #### L [id number] ####[facility] ([facility])[address] [place] [address] Sodium [Moles/Vol] 134 mmol/L Low 136-145 [facility] Comment on above: Performed By: #### L [id number] ####[facility] ([facility])[address] [place] [address] Urea nitrogen [Mass/Vol] 20 mg/dL Normal 7-25 [facility] Comment on above: Performed By: #### L [id number] ####[facility] ([facility])[address] [place] [address] UREA NITROGEN/CREATININE (MASS RATIO) IN SER/PLAS 18.3 Normal [facility] Comment on above: Performed By: #### L [id number] ####[facility] ([facility])[address] [place] [address] GLUCOSE, BODY FLUIDon 2023 GLUCOSE (MG/DL) IN BODY FLUID 130 mg/dL Normal [facility] Comment on above: Result Comment: The reference range and other method performance specifications have not been established for this test in fluids. the test result should be integrated into the clinical context for interpretation. Performed By: #### L [id number] #### [facility] ([facility]) [address] [place] [address] HPon 02-20-2024 HP H&P reviewed. The pa robert was examined and there are no changes to the H&P. Normal [facility] LACTATE DEHYDROGENASEon 0 LACTATE DEHYDROGENASE (U/L) IN SER/PLAS BY LAC->PYR RXN 161 U/L Normal 140-271 [facility] Comment on above: Performed By: #### L [id number] #### [facility] ([facility]) [address] [place] [address] LACTATE DEHYDROGENASE, BODY FLUIDon 02-20-2024 LACTATE DEHYDROGENASE (U/L) IN BODY FLUID BY LAC->PYR 42 U/L Normal [facility] Comment on above: Result Comment: The reference range and other method performance specifications have not been established for this test in fluids. the test result should be integrated into the clinical context for interpretation. Performed By: #### L [id number] #### [facility] ([facility]) [address] [place] [address] NURSNOTEon 02-20-2024 NURSNOTE All positioning john sabrina removed pt remains supine. Normal [facility] POCT GLUCOSE METER UNSOLICIT ED RESULTSon 02-20-2024 Glucose [Mass/Vol] 94 mg/dL Normal 70-105 [facility] Comment on above: Order Comment: Waive d Testing in the ED is performed under the ED CLIA certificate #[id number]. Result Comment: skir by Performed By: #### L [id number] #### [facility] ([facility]) [address] [place] [address] PROTEIN, BODY FLUIDon 2023 Protein (Body fld) [Mass/Vol] g/dL Normal [facility] Comment on above: Result Comment: The reference range and other method performance specifications have not been established for this test in fluids. the test result should be integrated into the clinical context for interpretation. Performed By: #### L [id number] ####[facility] ([facility])[address] [place] [address] PROTEIN, TOTALon 02-20-2024 Protein [Mass/Vol] 6.4 g/dL Normal 6.0-8.3 [facility] Comment on above: Performed By: #### L [id number] #### [facility] ([facility]) [address] [place] [address] PROTIME-INRon 02-20-2024 INR IN PPP BY COAGULATION ASSAY 1.35 High 0.90-1.10 [facility] Comment on above: Result Comment: ACCC [...] CHEST 1995;108:[id number]. Performed By: #### L [id number] ####[facility] ([facility]AKER)[address] [place] [address] PROTHROMBIN TIME (PT) IN PPP BY COAGULATION ASSAY 16.6 Seconds High 12.3-14.8 [facility] Comment on above: Performed By: #### L [id number] ####[facility] ([facility])[address] [place] [address] TRIGLYCERIDES, BODY FLUIDon 02-20-2024 TRIGLYCERIDES (MG/DL) IN BODY FLUID 30 mg/dL Normal [facility] Comment on above: Performed By: #### L [id number] #### [facility] ([facility]) [address] [place] [address] 30on 02-19-2024 30 The patient is Moder ately Stable - Low risk of patient condition declining or worsening The patient's goals for the shift include rest and comfort The clinical goals for the shift include VSS Over the shift, the patient did not make progress toward the following goals. Barriers to progression include thoracentesis. Recommendations to address these barriers include thora in the AM, EGD in afternoon. Problem: Discharge Planning Goal: Discharge to home or other facility with appropriate resources 02/19/20242041 by Diane Zavala RN Outcome: Not Progressing 02/19/20242040 by Diane Zavala RN Outcome: Progressing Problem: Chronic Conditions and Co-morbidities Goal: Patient's chronic conditions and co-morbidity symptoms are monitored and maintained or improved 02/19/20242041 by Diane Zavala RN Outcome: Not Progressing 02/19/20242040 by Diane Zavala RN Outcome: Progressing Normal [facility] CONSULTon 02-19-2024 CONSULT ----- ----- Attestation signed by Emmanuel Sheehan MD at 02/20/2024 12:40 PM I saw and evaluated the patient. I reviewed the resident's/fellow's note and agree with the findings and plan documents in the resident's/fellow's note ----- Initial Gastroenterology/Hepatolo gy Consultation Note IDENTIFYING DATA PATIENT: Charles Blandon ADMIT DATE: 02/19/2024 TIME OF EVALUATION: 02/19/2024 4:41 PM Reason for Consult: varices Admitting Physician: Irena Johnson MD HISTORY OF PRESENT ILLNESS Charles Blandon is a 68 y.o. male with PMHx of decompensated cirrhosis with ascites and HE, who initially presented for EGD for variceal screening. Last EGD performed 11/27/23 with two columns of non-bleeding large esophageal varices, that did not flatten with air insufflation. Given challenges with transportation, patient was started on NSBB for primary prophylaxis with plan for repeat EGD in 3 months. Prior to procedure today, pulmonology recommended thoracentesis in the setting of recurrent right-sided pleural effusion, however this was not able to be completed. Pulmonology requested admission from hospitalist team in order to coordinate thoracentesis tomorrow, followed by EGD. GI HISTORY SUMMARY TABLE Last EGD Last colonoscopy Primary GI physician PAST MEDICAL, SURGICAL, FAMILY, and SOCIAL HISTORY Past Medical History: Past Medical History: Diagnosis Date Abnormal weight loss Alcohol use disorder Ascites Barretts esophagus Basal cell carcinoma of skin Basal cell carcinoma of skin Cirrhosis (CMS/HCC) Colon polyp Diabetes mellitus (CMS/HCC) Esophageal dysmotility Esophageal varices (CMS/HCC) Family history of colonic polyps Fatty liver GERD (gastroesophageal reflux disease) Hypertension Incisional hernia Memory loss Metabolic syndrome Metabolic syndrome X Osteoporosis Pleural effusion Thrombocytopenia (CMS/HCC) Ventricular premature beats Past Surgical History: Past Surgical History: Procedure Laterality Date CHOLECYSTECTOMY COLONOSCOPY ELBOW SURGERY Right TORN MUSCLE UPPER GASTROINTESTINAL ENDOSCOPY Family History: No family history on file. Social History: Social History Tobacco Use Smoking status: Former Types: Cigarettes Quit date: 04/17/1994 Years since quittin.8 Smokeless tobacco: Never Vaping Use Vaping Use: Never used Substance Use Topics Alcohol use: Not Currently Comment: LAST DRINK 09/2023 Drug use: Never Allergies: No Known Allergies MEDICATIONS Home Medications: Prior to Admission medications Medication Sig Start Date End Date Taking? Authorizing Provider calcium carbonate-vitamin D3 500 mg-3.125 mcg (125 unit) tablet tablet 1 tablet. 06/02/23 Historical Provider, carvedilol (Coreg) 3.125 mg tablet Take 1 tablet (3.125 mg) by mouth with breakfast and with evening meal. Patient taking differently: Take 3.125 mg by mouth at bedtime. 12/27/23 04/25/24 Marito Oquendo MD dicyclomine (Bentyl) 20 mg tablet Take 20 mg by mouth in the morning, afternoon, and at bedtime. 03/28/23 Historical Provider, doxycycline (Vibra-Tabs) 100 mg tablet PLEASE SEE ATTACHED FOR DETAILED DIRECTIONS 03/24/23 Historical Provider, famotidine (Pepcid) 40 mg tablet Take 1 tablet (40 mg) by mouth in the morning. Patient taking differently: Take 40 mg by mouth two times daily. 11/08/23 11/07/24 Arias Jesus MD furosemide (Lasix) 20 mg tablet Take 3 tablets (60 mg) by mouth two times daily. Patient taking differently: Take 60 mg by mouth in the morning. 12/27/23 Marito Oquendo MD ketorolac (Acular) 0.5 % ophthalmic solution Administer 1 drop into affected eye(s) twice a day. 01/18/24 02/17/24 Historical Provider, lactulose 10 gram/15 mL solution Take 15 mL (10 g) by mouth in the morning. 01/16/24 05/15/24 Gibson Hazel MD lansoprazole (Prevacid) [address] capsule TAKE 1 CAPSULE BEFORE A MEAL TWICE DAILY FOR 30 DAYS Patient taking differently: Take 30 mg by mouth before breakfast. TAKE 1 CAPSULE BEFORE A MEAL TWICE DAILY FOR 30 DAYS 11/21/23 Arias Jesus MD lisinopril 20 mg tablet 10/27/23 Historical Provider, magnesium oxide (Mag-Ox) 400 mg tablet Take 500 mg by mouth in the morning. Historical Provider, multivitamin tablet Take 1 tablet by mouth in the morning. Historical Provider, ofloxacin (Ocuflox) 0.3 % ophthalmic solution PLEASE SEE ATTACHED FOR DETAILED DIRECTIONS 01/18/24 Historical Provider, prednisoLONE acetate (Pred-Forte) 1 % ophthalmic suspension INSTILL 1 DROP INTO BOTH EYES IN THE MORNING, NOON, EVENING, AND BEFORE BEDTIME FOR 14 DAYS 01/18/24 Historical Provider, rifAXIMin (Xifaxan) 550 mg tablet Take 1 tablet (550 mg) by mouth two times daily. 12/27/23 Marito Oquendo MD spironolactone (Aldactone) 50 mg tablet Take 3 tablets (150 m (more content not included)... [facility] CONSULT ----- ----- Attestation signed by Awa Conner MD at 02/20/2024 11:12 AM Patient was seen and examined with the resident on the same date of service, I discussed the findings and therapeutic plan with the resident/fellow, I agree with the documentation, assessment and plan as above except for any edits/updates below. Pulmonary consulted for large right sided pleural effusion likely hepatic hydrothorax. GI planing repeat EGD this admission for large esophageal varices that didn't flatten with air Will plan thoracentesis early am Resume home medications Awa Conner MD Pulmonary and critical care ----- Pulmonology Consult Patient : Charles Blandon : 1955 Location: No information available for this encounter. Attending: Irena Johnson MD Admit Date: 02/19/2024 Hospital Day: 0 Reason for Consult: Dyspnea, large right-sided pleural effusion. HPI: Charles Blandon is a 68 y.o. male with a past medical history alcoholic liver cirrhosis, type 2 diabetes mellitus, dyslipidemia, hypertension, GERD, metabolic syndrome X, thrombocytopenia presented to hospital with a chief complaint of getting a procedure done/EGD. Patient was seen in pulmonology clinic on 02/15/2024 for his large right-sided pleural effusion. Patient has an extensive history of cirrhosis for which he follows up with [facility] gastroenterology. He has been struggling with recurrent ascites and has undergone multiple paracentesis over the past many weeks. He experiences dyspnea both at rest and over exertion for the past [address] imaging he was found to have large right-sided pleural effusion for which he underwent thoracentesis by director medicare sales at [facility]. Patient reports that his dyspnea got better/relieved for 1 day and he became symptomatic again after the fluid got reaccumulated. Today patient came to the [facility] hospital for an EGD he is accompanied by his and he is feeling dyspneic and there is a concern that anesthesia might not clear him for endoscopy for his variceal surveillance in the setting of this large right-sided pleural effusion. So there was this plan that patient would undergo thoracentesis prior to EGD on 02/18. When patient came to the endoscopic suit pulmonology team went down there but they requested pulmonology team that the patient either has to get admitted for thoracentesis or this whole procedure has to be done in the OR. Pulmonology team requested admitting team/hospitalist team to admit the patient for this right-sided pleural effusion patient will be admitted under observation status will get his thoracentesis on 02/20/2024 before his EGD and will be discharged later during that day. Routine lab workup will be sent for the patient. Patient never had any pulmonary issues in the past he has never been diagnosed with COPD or asthma. He has never been on any inhalers or nebulizers. He was a former smoker who quit smoking 35 years ago he has smoked for approximately 20 years 2 packs/day. Right now patient is not complaining of any chest pain he does endorses mild shortness of breath. 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 X-ray chest showing bilateral pleural effusion right more than left. Decompensated alcoholic liver cirrhosis, Recinos esophagus/esophageal varices/ Multiple paracentesis, follows up with GI very closely for surveillance EGDs. Hypertension chronic stable. Type II DM. GERD. Plan: Supplement with oxygen if needed to keep oxygen saturation above 90%. N.p.o. by 6 AM on the morning of 02/20/2024 for thoracentesis earlier in the morning around 10 AM. 1 time CBC CMP PT/INR before proceeding with thoracentesis. Patient can proceed with EGD postthoracentesis procedure. Patient is not a candidate for Pleurx catheter as there is a risk of infection with hepatic hydrothorax. Definitive treatment for this is TIPS which patient can discuss with his Primary GI doctors. Past History/Allergies?Social History: Past Medical History: Diagnosis Date Abnormal weight loss Alcohol use disorder Ascites Barretts esophagus Basal cell carcinoma of skin Basal cell carcinoma of skin Cirrhosis (CMS/HCC) Colon polyp Diabetes mellitus (CMS/HCC) Esophageal dysmotility Esophageal varices (CMS/HCC) Family history of colonic polyps Fatty liver GERD (gastroesophageal reflux disease) Hypertension Incisional hernia Memory loss Metabolic syndrome Metabolic syndrome X Osteoporosis Pleural effusion Thrombocytopenia (CMS/HCC) Ventricular premature beats No Known Allergies Social History Socioeconomic History Marital status: Spouse name: Not on file Number of children: Not on file Years of (more content not included)... Normal [facility] HPon 02-19-2024 HP ----- ----- Attestation signed by Emmanuel Sheehan MD at 02/20/2024 12:40 PM I saw and evaluated the patient. I reviewed the resident's/fellow's note and agree with the findings and plan documents in the resident's/fellow's note ----- Initial Gastroenterology/Hepatolo gy Consultation Note IDENTIFYING DATA PATIENT: Charles Blandon ADMIT DATE: 02/19/2024 TIME OF EVALUATION: 02/19/2024 4:41 PM Reason for Consult: varices Admitting Physician: Irena Johnson MD HISTORY OF PRESENT ILLNESS Charles Blandon is a 68 y.o. male with PMHx of decompensated cirrhosis with ascites and HE, who initially presented for EGD for variceal screening. Last EGD performed 11/27/23 with two columns of non-bleeding large esophageal varices, that did not flatten with air insufflation. Given challenges with transportation, patient was started on NSBB for primary prophylaxis with plan for repeat EGD in 3 months. Prior to procedure today, pulmonology recommended thoracentesis in the setting of recurrent right-sided pleural effusion, however this was not able to be completed. Pulmonology requested admission from hospitalist team in order to coordinate thoracentesis tomorrow, followed by EGD. GI HISTORY SUMMARY TABLE Last EGD Last colonoscopy Primary GI physician PAST MEDICAL, SURGICAL, FAMILY, and SOCIAL HISTORY Past Medical History: Past Medical History: Diagnosis Date Abnormal weight loss Alcohol use disorder Ascites Barretts esophagus Basal cell carcinoma of skin Basal cell carcinoma of skin Cirrhosis (CMS/HCC) Colon polyp Diabetes mellitus (CMS/HCC) Esophageal dysmotility Esophageal varices (CMS/HCC) Family history of colonic polyps Fatty liver GERD (gastroesophageal reflux disease) Hypertension Incisional hernia Memory loss Metabolic syndrome Metabolic syndrome X Osteoporosis Pleural effusion Thrombocytopenia (CMS/HCC) Ventricular premature beats Past Surgical History: Past Surgical History: Procedure Laterality Date CHOLECYSTECTOMY COLONOSCOPY ELBOW SURGERY Right TORN MUSCLE UPPER GASTROINTESTINAL ENDOSCOPY Family History: No family history on file. Social History: Social History Tobacco Use Smoking status: Former Types: Cigarettes Quit date: 04/17/1994 Years since quittin.8 Smokeless tobacco: Never Vaping Use Vaping Use: Never used Substance Use Topics Alcohol use: Not Currently Comment: LAST DRINK 09/2023 Drug use: Never Allergies: No Known Allergies MEDICATIONS Home Medications: Prior to Admission medications Medication Sig Start Date End Date Taking? Authorizing Provider calcium carbonate-vitamin D3 500 mg-3.125 mcg (125 unit) tablet tablet 1 tablet. 06/02/23 Historical Provider, carvedilol (Coreg) 3.125 mg tablet Take 1 tablet (3.125 mg) by mouth with breakfast and with evening meal. Patient taking differently: Take 3.125 mg by mouth at bedtime. 12/27/23 04/25/24 Marito Oquendo MD dicyclomine (Bentyl) 20 mg tablet Take 20 mg by mouth in the morning, afternoon, and at bedtime. 03/28/23 Historical Provider, doxycycline (Vibra-Tabs) 100 mg tablet PLEASE SEE ATTACHED FOR DETAILED DIRECTIONS 03/24/23 Historical Provider, famotidine (Pepcid) 40 mg tablet Take 1 tablet (40 mg) by mouth in the morning. Patient taking differently: Take 40 mg by mouth two times daily. 11/08/23 11/07/24 Arias Jesus MD furosemide (Lasix) 20 mg tablet Take 3 tablets (60 mg) by mouth two times daily. Patient taking differently: Take 60 mg by mouth in the morning. 12/27/23 Marito Oquendo MD ketorolac (Acular) 0.5 % ophthalmic solution Administer 1 drop into affected eye(s) twice a day. 01/18/24 02/17/24 Historical Provider, lactulose 10 gram/15 mL solution Take 15 mL (10 g) by mouth in the morning. 01/16/24 05/15/24 Gibson Hazel MD lansoprazole (Prevacid) [address] capsule TAKE 1 CAPSULE BEFORE A MEAL TWICE DAILY FOR 30 DAYS Patient taking differently: Take 30 mg by mouth before breakfast. TAKE 1 CAPSULE BEFORE A MEAL TWICE DAILY FOR 30 DAYS 11/21/23 Arias Jesus MD lisinopril 20 mg tablet 10/27/23 Historical Provider, magnesium oxide (Mag-Ox) 400 mg tablet Take 500 mg by mouth in the morning. Historical Provider, multivitamin tablet Take 1 tablet by mouth in the morning. Historical Provider, ofloxacin (Ocuflox) 0.3 % ophthalmic solution PLEASE SEE ATTACHED FOR DETAILED DIRECTIONS 01/18/24 Historical Provider, prednisoLONE acetate (Pred-Forte) 1 % ophthalmic suspension INSTILL 1 DROP INTO BOTH EYES IN THE MORNING, NOON, EVENING, AND BEFORE BEDTIME FOR 14 DAYS 01/18/24 Historical Provider, rifAXIMin (Xifaxan) 550 mg tablet Take 1 tablet (550 mg) by mouth two times daily. 12/27/23 Marito Oquendo MD spironolactone (Aldactone) 50 mg tablet Take 3 tablets (150 m (more content not included)... [facility] ----- ----- Attestation signed by Irena Johnson MD at 02/19/2024 10:30 AM I personally saw and examined the patient on the same date of service as fellow. I discussed the findings and therapeutic plan with the fellow. I agree with the documentation, except for any edits/updates below. ----- Gastroenterology History and Physical Note IDENTIFYING DATA PATIENT: Charles Blandon HISTORY OF PRESENT ILLNESS Charles Blandon is a 68 y.o. male with PMHx of decompensated cirrhosis with ascites and HE, who presents for EGD for variceal screening. Last EGD performed 11/27/23 with two columns of non-bleeding large esophageal varices, that did not flatten with air insufflation. Given challenges with transportation, patient was started on NSBB for primary prophylaxis. PAST MEDICAL, SURGICAL, FAMILY, and SOCIAL HISTORY Past Medical History: Past Medical History: Diagnosis Date Abnormal weight loss Alcohol use disorder Ascites Barretts esophagus Basal cell carcinoma of skin Basal cell carcinoma of skin Cirrhosis (CMS/HCC) Colon polyp Diabetes mellitus (CMS/HCC) Esophageal dysmotility Esophageal varices (CMS/HCC) Family history of colonic polyps Fatty liver GERD (gastroesophageal reflux disease) Hypertension Incisional hernia Memory loss Metabolic syndrome Metabolic syndrome X Osteoporosis Pleural effusion Thrombocytopenia (CMS/HCC) Ventricular premature beats Past Surgical History: Past Surgical History: Procedure Laterality Date CHOLECYSTECTOMY COLONOSCOPY ELBOW SURGERY Right TORN MUSCLE UPPER GASTROINTESTINAL ENDOSCOPY Family History: No family history on file. Social History: Social History Tobacco Use Smoking status: Former Types: Cigarettes Quit date: 04/17/1994 Years since quittin.8 Smokeless tobacco: Never Vaping Use Vaping Use: Never used Substance Use Topics Alcohol use: Not Currently Comment: LAST DRINK 09/2023 Drug use: Never Allergies: No Known Allergies Home Medications: Prior to Admission medications Medication Sig Start Date End Date Taking? Authorizing Provider calcium carbonate-vitamin D3 500 mg-3.125 mcg (125 unit) tablet tablet 1 tablet. 06/02/23 Historical Provider, carvedilol (Coreg) 3.125 mg tablet Take 1 tablet (3.125 mg) by mouth with breakfast and with evening meal. Patient taking differently: Take 3.125 mg by mouth at bedtime. 12/27/23 04/25/24 Marito Oquendo MD dicyclomine (Bentyl) 20 mg tablet Take 20 mg by mouth in the morning, afternoon, and at bedtime. 03/28/23 Historical Provider, doxycycline (Vibra-Tabs) 100 mg tablet PLEASE SEE ATTACHED FOR DETAILED DIRECTIONS 03/24/23 Historical Provider, famotidine (Pepcid) 40 mg tablet Take 1 tablet (40 mg) by mouth in the morning. Patient taking differently: Take 40 mg by mouth two times daily. 11/08/23 11/07/24 Arias Jesus MD furosemide (Lasix) 20 mg tablet Take 3 tablets (60 mg) by mouth two times daily. Patient taking differently: Take 60 mg by mouth in the morning. 12/27/23 Marito Oquendo MD ketorolac (Acular) 0.5 % ophthalmic solution Administer 1 drop into affected eye(s) twice a day. 01/18/24 02/17/24 Historical Provider, lactulose 10 gram/15 mL solution Take 15 mL (10 g) by mouth in the morning. 01/16/24 05/15/24 Gibson Hazel MD lansoprazole (Prevacid) [address] capsule TAKE 1 CAPSULE BEFORE A MEAL TWICE DAILY FOR 30 DAYS Patient taking differently: Take 30 mg by mouth before breakfast. TAKE 1 CAPSULE BEFORE A MEAL TWICE DAILY FOR 30 DAYS 11/21/23 Arias Jesus MD lisinopril 20 mg tablet 10/27/23 Historical Provider, magnesium oxide (Mag-Ox) 400 mg tablet Take 500 mg by mouth in the morning. Historical Provider, multivitamin tablet Take 1 tablet by mouth in the morning. Historical Provider, ofloxacin (Ocuflox) 0.3 % ophthalmic solution PLEASE SEE ATTACHED FOR DETAILED DIRECTIONS 01/18/24 Historical Provider, prednisoLONE acetate (Pred-Forte) 1 % ophthalmic suspension INSTILL 1 DROP INTO BOTH EYES IN THE MORNING, NOON, EVENING, AND BEFORE BEDTIME FOR 14 DAYS 01/18/24 Historical Provider, rifAXIMin (Xifaxan) 550 mg tablet Take 1 tablet (550 mg) by mouth two times daily. 12/27/23 Marito Oquendo MD spironolactone (Aldactone) 50 mg tablet Take 3 tablets (150 mg) by mouth in the morning. 12/27/23 Marito Oquendo MD triamterene-hydrochloroth iazid (Dyazide) 37.5-25 mg capsule TAKE 1 CAPSULE BY MOUTH EVERY MORNING NEEDED FOR LEG SWELLING 03/16/23 Historical Provider, REVIEW OF SYSTEMS See HPI, otherwise ROS negative as below. OBJECTIVE DATA Vitals: There were no vitals taken for this visit. Physical Exam Vitals reviewed. Cardiovascular: Rate and Rhythm: Normal rate. Pulmonary: Effort: Pulmonary effort is normal. Abdominal: General: Abdomen i (more content not included)... [facility] Orders Onlyon 02-19-2024 Orders Only [id number] Ambrosio Blandon 1955 M Date Provider Department Center 02/19/2024 1947-JANINA PAN [facility] No family history on file [facility] 36on 02-16-2024 36 Called patient's wif e to schedule his 4-[address] follow up [address] Johnson, was able to get him in for the 03/08/24 clinic. During this phone call his stated that she is very upset and anxious because he had an MRI done on 01/25/24 in [place] and still hasn't received a call regarding the results. Apologized to her and told her a message would be sent to the provider regarding the results being reviewed with her and the patient, confirmed the message would be sent high priority. Please advise. [facility] 36 LVM for patient's wi fe letting her know we have some available appts with Dr. Johnson on 02/21/24 and 03/08/24 to bring him in for a follow up Liver cirrhosis [facility] Office Visiton 02-15-2024 Follow-up visit [id number] Ambrosio Blandon emma 1955 M Date Provider Department Center 02/15/2024 383-LINETTE JAQUEZ ONC [facility] No family history on file Level of Service:[id number] [place] OFFICE/OUTPATIENT NEW LOW MDM 30 MINUTES (GC) Reason for Visit and Comments: Consult [[id number]] - New patient possible thoracentesis [facility] 36on 02-13-2024 36 Patient's saucedo d with questions/concerns regarding his upcoming endoscopy and his breathing during procedure. Transferred to endoscopy to speak with one of the nurses and/or schedulers that can answer questions related to preparation for the procedure. Normal [facility] ALL CBC WITH AUTO DIFFon BASOPHILS ABSOLUTE AUTO 0.1 [facility] Basophils/100 WBC (Bld) 1 % 0.2 - 2.0 % [facility] Eosinophils/100 WBC (Bld) 4.5 % 0.9 - 7.0 % [facility] Erythrocyte distribution width (RBC) [Ratio] 15.6 % High 11.0 - 15.0 % [facility] Hematocrit (Bld) [Volume fraction] 38.2 % Low 42.0 - 54.0 % [facility] Hemoglobin (Bld) [Mass/Vol] 13.1 g/dL Low 14.0 - 18.0 g/dL [facility] IMMATURE GRANULOCYTES ABS AUTO 0.01 [facility] Immature granulocytes/100 WBC (Bld) 0.2 % 0.0 - 0.5 % [facility] Interpretation and review of laboratory results Abnormal [facility] LYMPHOCYTES ABSOLUTE AUTO 1 Low [facility] Lymphocytes/100 WBC (Bld) 19.5 % Low 20.5 - 60.0 % [facility] MCH (RBC) [Entitic mass] 34.7 pg High 25.9 - 34.0 pg [facility] MCHC (RBC) [Mass/Vol] 34.3 g/dL 29.9 - 35.2 g/dL [facility] MCV (RBC) [Entitic vol] 101.1 fL High 80.0 - 94.0 fL [facility] MONOCYTES ABSOLUTE AUTO 0.6 [facility] Monocytes/100 WBC (Bld) 11.7 % 1.7 - 12.0 % [facility] NEUTROPHILS ABSOLUTE AUTO 3.1 [facility] [facility] Neutrophils/100 WBC (Bld) 63.1 % 43.0 - 75.0 % [facility] Platelet mean volume (Bld) [Entitic vol] 10 fL 9.5 - 13.5 fL [facility] TBH EO # 0.2 [facility] TBH PLT 149 Low [facility] TB RBC 3.78 Low [facility] TBH WBC 4.9 [facility] CLINISYNC [facility] Prep for Procedureon 024 Prep for Procedure [id number] Ambrosio Blandon 1955 Date Provider Department Center 02/12/2024 298-IRENA JOHNSON [facility] GIS GEORGEI No family history on file Normal [facility] Orders Onlyon 01-25-2024 Orders Only [id number] JamiaAmbroiso emma 1955 M Date Provider Department Center 01/25/2024 [id number], HISTORICAL GI Medical Pavi No family history on file Normal [facility] US Eye+Orbit - bilateralon 1 Diagnosis: Cataract both eyes (OU) Testing Indication: Performed for preop measurements in the determination of an intraocular lens (IOL) for both eyes (OU) Test Reliability: Good quality both eyes (OU) Interpretation: Good measurements for intraocular lens (IOL) calculation purposes. Calculation made for both eyes (OU). [facility] Radiology Study observation (narrative) [facility] 36on 01-17-2024 36 [facility] Onlyon 01-16-2024 Orders Only [id number] Ambrosio Blandon 1955 M Date Provider Department Center 01/16/2024 [id number]-SFTXCGIBSON HAZEL GI Medical Pavi No family history on file Normal [facility] Orders Onlyon 01-04-2024 Orders Only [id number] Ambrosio Blandon 1955 M Date Provider Department Center 01/04/2024 [id number], HISTORICAL GI Medical Pavi No family history on file Normal [facility] 36on 01-03-2024 36 Called patient with [...] day prior or the day of MRI. [facility] 36 ----- Message from Rachel Doan MA sent at 01/03/2024 9:53 AM EDT ----- A new document has been added to this order with description [facility] Lab results. [facility] Orders Onlyon 01-03-2024 Orders Only [id number] Ambrosio Blandon 1955 M Date Provider Department Center 01/03/2024 [id number], MAGALIS MP GI Medical Pavi No family history on file [facility] Telephoneon 01-03-2024 Telephone [id number] Ambrosio Blandon 1955 M Date Provider Department Center 01/03/2024 3856-MARITO OQUENDO [facility] GASTRO None No family history on file [facility] 36on 01-01-2024 36 Called patient to cl arify Lasix dosage, instructed to take Lasix 60mg daily. expressed understanding. I did instruct her that we would like repeat BMP to assess potassium and Creatinine, Monday or Monday. She is planning to have this done at [facility] on Monday. I did provide the fax number to our clinic for results. She is awaiting scheduling for MRI and Abdominal XR at [place]. [facility] Refillon 12-30-2023 Refill [id number] Ambrosio Blandon 1955 M Date Provider Department Center 12/30/202347918-MUJKGGIBSON HAZEL [facility] Medical Pavi No family history on file Reason for Visit and Comments: Med Refill [[id number]] [facility] 36on 12-29-2023 36 Patient's saucedo d in to say that the lab at [place] told her insurance doesn't cover the Enteric Bacterial DNA stool and it is $1500, they told her if we sent in an order for a stool culture is would be similar and insurance would cover that. Also the lab doesn't do the fecal fat 24 hours, but will do the fecal fat 72 hours. Please advise. [facility] 36 Patient's carmen ng again for clarification of lasix dosage 60mg daily on the office note, 60mg BID on the prescription. She is concerned about giving him the correct dosage and frequency. [facility] Documentationon 12-29-2023 Documentation [id number] Ambrosio Blandon 1955 M [facility] Provider Department Center 12/29/2023 ChipLynn-ZAKIYA LIRA GI Medical Pavi No family history on file [facility] Orders Onlyon 12-29-2023 Orders Only [id number] Ambrosio Blandon 1955 M Date Provider Department Center 12/29/2023 2031-EKATERINA ALMODOVAR [facility] GEORGEI No family history on file [facility] Telephoneon 12-29-2023 Telephone [id number] Ambrosio Blandon 1955 M [facility] Provider Department [place] 12/29/2023 [id number]-RJDIKDBROOKLYNN MORALES [facility] Medical Pavi No family history on file [facility] 36on 12-28-2023 36 Patient's carmen neil for clarification of Lasix dosage, on discharge plan it is written as 60mg daily, but the pharmacy gave her a bottle of lasix where the sig is written 60mg twice daily. She anxious and wants to make sure she gives him the correct dosage and frequency.Please advise. [facility] Telephoneon 12-28-2023 Telephone [id number] Ambrosio Blandon 1955 [facility] Provider Department [place] 12/28/2023 BROOKLYNN ZEPEDA [facility] Medical Pavi No family history on file [facility] 37on 12-27-[address] [...] (same day). This can be done at [place]. Please continue Rifaximin 550mg twice daily, and Lactulose once daily for encephalopathy Schedule a follow up appointment in 3 months. Normal [facility] AFP TUMOR MARKERon ALPHA FETOPROTEIN TUMOR MARKER 3 ng/mL Normal 0-9 [facility] Comment on above: Result Comment: INTE RPRETIVE INFORMATION: Alpha Fetoprotein Tumor Marker [facility] Access DxI AFP method is used. Results [...] reference intervals for this test in the [facility] Test Directory ([facility]). Performed By: [employer] [address] [place] [address] [employer] Machine Operator: Ira Lutz MD, PhD CLIA Number: [id number] Performed By: #### L [id number] #### [facility] (BEAKER) [address] [place] [address] CBCon 12-27-2023 Erythrocyte distribution width (RBC) [Ratio] 15.1 % High 11.5-15.0 [facility] Comment on above: Performed By: #### L [id number] ####[facility] (BEAKER)[address] [place] [address] ERYTHROCYTE MEAN CORPUSCULAR HEMOGLOBIN CONCENTRATION (G/DL) BY AUTOMATED 33.2 g/dL Normal 32.0-35.0 [facility] Comment on above: Performed By: #### L [id number] ####[facility] (BEAKER)[address] [place] [address] Hematocrit (Bld) [Volume fraction] 38.5 % Low 39.0-55.0 [facility] Comment on above: Performed By: #### L [id number] ####[facility] [place] [address] Hemoglobin (Bld) [Mass/Vol] 12.8 g/dL Low 13.0-17.0 [facility] Comment on above: Performed By: #### L [id number] ####[facility] (BEAKER)[address] [place] [address] MCH (RBC) [Entitic mass] 32.8 pg Normal 27.0-33.0 [facility] Comment on above: Performed By: #### L [id number] ####[facility] ([facility] [place] [address] MCV (RBC) [Entitic vol] 98.7 fL High 82.0-98.0 [facility] Comment on above: Performed By: #### L [id number] ####[facility] ([facility])[address] [place] [address] PLATELETS (10*3/UL) IN BLOOD AUTOMATED COUNT 166 10*3/uL Normal 150-400 [facility] Comment on above: Performed By: #### L [id number] ####[facility] (BEAKER)[address] [place] [address] RBC (Bld) [#/Vol] 3.90 10*6/uL Low 4.20-5.70 [facility] Comment on above: Performed By: #### L [id number] ####[facility] (BEAKER)[address] [place] [address] WBC (Bld) [#/Vol] 4.72 10*3/uL Normal 4.00-10.60 [facility] Comment on above: Performed By: #### L [id number] ####[facility] (BEAKER)[address] [place] [address] COMPREHENSIVE METABOLIC PANE Mayito 12-27-2023 Albumin [Mass/Vol] 3.1 g/dL Low 3.5-5.7 [facility] Comment on above: Performed By: #### L AB17 ####[facility] (BEAKER)[address] [place] [address] ALP [Catalytic activity/Vol] 120 U/L High 34-104 [facility] Comment on above: Performed By: #### L [id number] ####[facility] (BEAKER)[address] [place] [address] ALT [Catalytic activity/Vol] 25 U/L Normal 7-52 [facility] Comment on above: Performed By: #### L [id number] ####[facility] (BEAKER)[address] [place] [address] Anion gap [Moles/Vol] 12 mmol/L Normal 7-[address] [facility] Comment on above: Performed By: #### L [id number] ####[facility] ([facility] [place] [address] AST [Catalytic activity/Vol] 46 U/L High 13-39 [facility] Comment on above: Performed By: #### L [id number] ####[facility] (BEAKER)[address] [place] [address] Bilirubin [Mass/Vol] 1.9 mg/dL High 0.3-1.0 [facility] Comment on above: Performed By: #### L [id number] ####[facility] (BEAKER)[address] [place] [address] Calcium [Mass/Vol] 9.0 mg/dL Normal 8.6-10.3 [facility] Comment on above: Performed By: #### L [id number] ####[facility] (BEAKER)[address] [place] [address] Chloride [Moles/Vol] 98 mmol/L Normal 98-107 [facility] Comment on above: Performed By: #### L [id number] ####[facility] (BEAKER)[address] [place] [address] CO2 [Moles/Vol] 26 mmol/L Normal 21-[address] [facility] Comment on above: Performed By: #### L AB17 ####[facility] ([facility] [place] [address] Creatinine [Mass/Vol] 1.11 mg/dL Normal 0.70-1.[address] [facility] Comment on above: Performed By: #### L [id number] ####[facility] ([facility])[address] [place] [address] GLOMERULAR FILTRATION RATE ML/MIN/1.73 SQ M.PREDICTED 71.4 mL/min/1.73m*2 Normal >60.0 [facility] Comment on above: Result Comment: The [facility]???s estimated glomerular filtration rate (eGFR) will [...] of individuals. Performed By: #### L [id number] ####[facility] ([facility])[address] [place] [address] Glucose [Mass/Vol] 111 mg/dL High 70-100 [facility] Comment on above: Performed By: #### L [id number] ####[facility] ([facility])[address] [place] [address] Potassium [Moles/Vol] 4.4 mmol/L Normal 3.5-5.[address] [facility] Comment on above: Performed By: #### L [id number] ####[facility] ([facility])[address] [place] [address] Protein [Mass/Vol] 7.3 g/dL Normal 6.0-8.3 [facility] Comment on above: Performed By: #### L [id number] ####[facility] (MILLIE)[address] [place] [address] Sodium [Moles/Vol] 132 mmol/L Low 136-145 [facility] Comment on above: Performed By: #### L [id number] ####[facility] (MILLIE)[address] [place] [address] Urea nitrogen [Mass/Vol] 17 mg/dL Normal 7-25 [facility] Comment on above: Performed By: #### L [id number] ####[facility] (MILLIE)[address] [place] [address] UREA NITROGEN/CREATININE (MASS RATIO) IN SER/PLAS 15.3 Normal [facility] Comment on above: Performed By: #### L AB17 ####[facility] (MILLIE)[address] [place] [address] Labon 12-27-2023 Lab [id number] Ambrosio Blandon 1955 M Date Provider Department Center 12/27/2023 2244-[facility] MP LAB RESOURCE MP DRAW Medical Pavi No family history on file Normal [facility] Office Visiton 12-27-2023 Follow-up visit [id number] Ambrosio Blandon 1955 M Date Provider Department Center 12/27/2023 298-IRENA JOHNSON GI Medical Pavi No family history on file Level of Service:14899 MT OFFICE/OUTPATIENT ESTABLISHED HIGH MDM 40 MIN (GC) Reason for Visit and Comments: Follow-up [330811] Cirrhosis [239] Ascites [295] Normal [facility] PROTIME-INRon 12-27-2023 INR IN PPP BY COAGULATION ASSAY 1.21 High 0.90-1.10 [facility] Comment on above: Result Comment: ACCC [...] RANGE. CHEST 1995;108:231S-246S. Performed By: #### L [id number] #### [facility] (BEAKER) [address] [place] [address] PROTHROMBIN TIME (PT) IN PPP BY COAGULATION ASSAY 15.3 Seconds High 12.3-14.8 [facility] Comment on above: Performed By: #### L [id number] #### [facility] (BEAKER) [address] [place] [address] 36on 12-21-2023 36 I called and spoke w ith the patient's in regards to his recent lab work after increasing his diuretics. His creatinine and electrolytes are grossly stable after increasing his Lasix and Aldactone. We will continue with the current regimen of Lasix 40 twice daily and Aldactone 200 mg daily and follow-up in hepatology clinic on 12/27/2023. Normal [facility] Orders Onlyon 12-21-2023 Orders Only [id number] Ambrosio Blandon emma 1955 M Date Provider Department Center 12/21/2023 [id number] GI Medical Pavi No family history on file [facility] Telephoneon 12-21-2023 Telephone [id number] Ambrosio Blandon emma 1955 M Date Provider Department Center 12/21/202312746-PBPAXGIBSON HAZEL GI Medical Pavi No family history on file [facility] Orders Onlyon 12-20-2023 Orders Only [id number] Ambrosio Blandon 1955 M Date Provider Department Center 12/20/2023 [id number], MAGALIS HUERTA GI Medical Pavi No family history on file [facility] 36on 12-14-2023 36 [employer] faxed lab ord ers to [facility]. [facility] 36 ----- Message from Serena Hazel MD sent at 12/14/2023 1:36 PM EDT ----- Petra, I sent over a prescription for his diuretics and recommended that they have repeat CMP next week. The order has been placed, can you please fax this to [facility] so that they can get them done next week? Thank you so much ----- Message ----- From: Rachel Doan MA Sent: 12/13/2023 1:35 PM EDT To: Gibson Hazel MD A new document has been added to this order with description CMP results [facility]. [facility] 36 Patient's sheryl lu last week asking [...] assess his diuretics further at that time. [facility] Orders Onlyon 12-14-2023 Orders Only [id number] Ambrosio Blandon 1955 M Date Provider Department Center 12/14/202321911-VHGGBGIBSON HAZEL MP GI Medical Pavi No family history on file [facility] Telephoneon 12-14-2023 Telephone [id number] Ambrosio Blandon 1955 M Date Provider Department Center 12/14/202391138-ZBNQTGIBSON HAZEL GI Medical Pavi No family history on file [facility] Orders Onlyon 12-13-2023 Orders Only [id number] Ambrosio Blandon 1955 M Date Provider Department Center 12/13/2023 [id number], MAGALIS GI Medical Pavi No family history on file [facility] 36on 12-11-2023 36 Patient's repor ts that [...] an appointment in hepatology clinic on 12/27/2023. [facility] 36 of patient call s today stating that when they went for paracentesis at [place] last week - the patient was admitted. [...] clinic visit with Dr. Johnson on 12/27/2023. [facility] Orders Onlyon 12-11-2023 Orders Only [id number] Ambrosio Blandon 1955 M Date Provider Department Center 12/11/202377523-JXIAHGIBSON HAZEL MP GI Medical Pavi No family history on file Normal [facility] Telephoneon 12-11-2023 Telephone [id number] Ambrosio Blandon 1955 M Date Provider Department Center 12/11/202397634-GJWSDGIBSON HAZEL MP GI Medical Pavi No family history on file Normal [facility] Mayito 12-08-2023 L Specimen: Received: 12/11/23 Status: HUSAM Coffey Num: [id number] Spec Type: Cytology Subm Dr: Devyn Winter DO Tissues: A PLEURAL FLUID (PLEUR) Procedures: HE/2, Gross/Micro L4, Cyto Prepstain, PAPSTN Age/ Patient Sex Location Account Attending Physician Charles Blandon 68/M LABELL [id number] Devyn Winter DO SPEC NUM: [id number] RECD: 12/11/23 STATUS: HUSAM COFFEY NUM: [id number] WEN: 12/08/[address]: Devyn Winter DO ENTERED: 12/11/[address]: Babs,Aliza SPEC TYPE: Cytology DEPT: [facility] VALDEZ ENTERED BY: [id number] RECV BY: [id number] ORDERED: HE/2, Gross/Micro L4, Cyto Prepstain, PAPSTN [...] above interpretation Specimen: [id number] Received: 12/11/23 Status: HUSAM Coffey Num: [id number] Spec Type: Cytology Subm Dr: Devyn Winter DO Tissues: A PLEURAL FLUID (PLEUR) Procedures: HE/2, Gross/Micro L4, Cyto Prepstain, PAPSTN Patient: Charles Blandon [id number] (Continued) Specimen: Received: 12/11/23 (Continued) Signed (signature on file) Windy Duque MD 12/14/23 1503 Specimen: [id number] Received: 12/11/23 Status: HUSAM Coffey Num: [id number] Spec Type: Cytology Subm Dr: Devyn Winter DO Tissues: A PLEURAL FLUID (PLEUR) Procedures: HE/2, Gross/Micro L4, Cyto Prepstain, PAPSTN Patient: Charles Blandon [id number] (Continued) Specimen: [id number] Received: 12/11/23 (Continued) CPT Codes 51555 11625 Specimen: [id number] Received: 12/11/23 Status: HUSAM Coffey Num: [id number] Spec Type: Cytology Subm Dr: Devyn Winter DO Tissues: A PLEURAL FLUID (PLEUR) Procedures: HE/2, Gross/Micro L4, Cyto Prepstain, PAPSTN Patient: Charles Blandon [id number] (Continued) Signed (signature on file) Windy Duque MD 12/14/23 1503 Normal [facility] Physician [facility] Mayito 12-07-2023 L Specimen: Received: 12/14/23 Status: HUSAM Coffey Num: [id number] Spec Type: Cytology Subm Dr: Ward Stern MD Tissues: A ASCITES (ASC) Procedures: HE/2, Gross/Micro L4, Cyto Prepstain, PAPSTN Age/ Patient Sex Location Account Attending Physician Charles Blandon 68/M LABELL [id number] Ward Stern MD SPEC NUM: [id number] RECD: 12/14/23 STATUS: HUSAM PATELMartin NUM: [id number] WEN: 12/07/23- SUBM DR: Ward Stern MD ENTERED: 12/14/23 [facility] DR: Aliza Arroyo SPEC TYPE: Cytology DEPT: MARLEN NVMORRIS ENTERED BY: [id number] RECV BY: [id number] ORDERED: HE/2, Gross/Micro L4, Cyto Prepstain, PAPSTN [...] BC24 Received: 12/14/23 Status: HUSAM Coffey Num: [id number] Spec Type: Cytology Subm Dr: Ward Stern MD Tissues: A ASCITES (ASC) Procedures: HE/2, Gross/Micro L4, Cyto Prepstain, PAPSTN Patient: Charles Blandon [id number] (Continued) Specimen: [id number] Received: 12/14/23 (Continued) Signed (signature on file) Windy Duque MD 12/19/23 1440 Specimen: [id number] Received: 12/14/23 Status: HUSAM Coffey Num: [id number] Spec Type: Cytology Subm Dr: Ward Stern MD Tissues: A ASCITES (ASC) Procedures: HE/2, Gross/Micro L4, Cyto Prepstain, PAPSTN Patient: Charles Blandon [id number] (Continued) Specimen: BC Received: 12/14/23 (Continued) CPT Codes 93283 02722 Specimen: [id number] Received: 12/14/23-1041 Status: HUSAM Coffey Num: [id number] Spec Type: Cytology Subm Dr: Ward Stern MD Tissues: A ASCITES (ASC) Procedures: HE/2, Gross/Micro L4, Cyto Prepstain, PAPSTN Patient: Charles Blandon [id number] (Continued) Signed (signature on file) Robert-Fabio Duque MD 12/19/23 1039 Normal [facility] 36on 12-01-[address] Hazel in clinic, order placed and faxed to [facility] at [phone] [facility] 36 calls stating t hat patient is in need of an order for paracentesis. Order will need to be sent to [facility]. Normal [facility] Orders Onlyon 12-01-2023 Orders Only [id number] Ambrosio Blandon 1955 M Date Provider Department Center 12/01/202391086-RSMSHGIBSON HAZEL MP GI Medical Pavi No family history on file Normal [facility] HPon 11-27-2023 HP ----- ----- Attestation [...] PROT B12/Folate/Iron studies: No results found for: [id number] , FOLATE , IRON , TIBC , UIBC , IRONSAT , FERRITIN ASSESSMENT AND PLAN Charles Blandon is a 68 y.o. male who has a known past medical history significant for alcoholic liver cirrhosis, Recinos's esophagus and hepatic encephalopathy is scheduled today for an EGD for esophageal varices screening. Plan: Plan for EGD today for esophageal varices secondary to liver cirrhosis. Normal [facility] POCT GLUCOSE METER UNSOLICIT ED RESULTSon 11-27-2023 Glucose [Mass/Vol] 101 mg/dL Normal 70-105 [facility] Comment on above: Order Comment: Waive d Testing in the ED is performed under the ED CLIA certificate #[id number]. Result Comment: ag eman Performed By: #### L [id number] #### [facility] (BEAKER) [address] [place] [address] 36on 11-21-2023 36 Appeal submitted Normal [facility] Orders Onlyon 11-21-2023 Orders Only [id number] Ambrosio Blandon 1955 M Date Provider Department Center 11/21/2023 66224-MWYBQHBROOKLYNN SINGH MP GI Medical Pavi No family history on file Normal [facility] Prep for Procedureon 024 Prep for Procedure [id number] Ambrosio Blandon 1955 M Date Provider Department Center 11/21/2023 IRENA SCHMIDT [facility] GISC GEORGEI No family history on file Normal [facility] MR ABDOMEN W AND WO CONTRAST [...] signed: Adalid Montiel. 9 Invalid Interpretation Code [facility] Orders Onlyon 11-08-2023 Orders Only [id number] Ambrosio Blandon 1955 M [facility] Provider Department Center 11/08/2023 BROOKLYNN ZEPEDA GI Medical Pavi No family history on file Normal [facility] 36on 11-02-2023 36 Patient's carmen jolynn to verify that Dr. Jesus will now be prescribing the Famotidine and Baclofen because the previously prescribing physician no longer will now that he is a [facility] GI patient. The preferred pharmacy is [facility] in [place]. Please advise and these orders can then be pended. Normal [facility] Orders Onlyon 11-02-2023 Orders Only [id number] Ambrosio Blandon 1955 M Date Provider Department Center 11/02/2023 [id number], HISTORICAL MP GI Medical Pavi No family history on file [facility] 3610-26-2023 36 I called the patient and [...] MRI of his liver on the . [facility] Orders Only10-26-2023 Orders Only [id number] Jamia,Wil emma 1955 M Date Provider Department Center 10/26/202311429-FHZCEGIBSON HAZEL MP GI Medical Pavi No family history on file [facility] Telephoneon 10-26-2023 Telephone [id number] Jamia,Wil emma 1955 M Date Provider Department Center 10/26/202307184-FIZIFGIBSON HAZEL GI Medical Pavi No family history on file [facility] Orders Only10-24-2023 Orders Only [id number] Ambrosio Blandon emma 1955 M Date Provider Department Center 10/24/2023 B5594-[id number], HISTORICAL MP GI Medical Pavi No family history on file [facility] Orders Only10-20-2023 Orders Only [id number] Jamia,Wil emma 1955 M Date Provider Department Center 10/20/2023 RUFINO HORN [facility] Medical No family history on file [facility] 36on 10-18-2023 36 I called the patient [...] we can follow-up on his sodium level. [facility] 36 Patients called stating they were called [...] from you to clarify some things. Normal [facility] Orders Onlyon 10-18-2023 Orders Only [id number] Ambrosio Blandon 1955 M Date Provider Department Center 10/18/20232030-EKATERINA ALMODOVAR [facility] GEORGEI No family history on file [facility] Telephoneon 10-18-2023 Telephone [id number] Ambrosio Blandon 1955 M Date Provider Department Center 10/18/202344155-SBHRPGIBSON HAZEL [facility] Medical Pavi No family history on file [facility] Orders Onlyon 10-17-2023 Orders Only [id number] Ambrosio Blandon 1955 M Date Provider Department Center 10/17/202356229-XQMMAGIBSON HAZEL [facility] Medical Pavi No family history on file [facility] Documentationon 10-16-2023 Documentation [id number] Ambrosio Blandon 1955 M Date Provider Department Center 10/16/2023 Rohan-CARMELLA JANE MP GI Medical Pavi No family history on file Reason for Visit and Comments: Specialty Pharmacy Note: Xifaxan PAP [Other] Normal [facility] Prep for Procedureon 024 Prep for Procedure [id number] Ambrosio Blandon 1955 M Date Provider Department Center 10/16/2023 298-IRENA JOHNSON [facility] No family history on file [facility] BASIC METABOLIC PANELon 09-16 Anion gap [Moles/Vol] 14 mmol/L Normal 7-[address] [facility] Comment on above: Performed By: #### L [id number] #### [facility] (BEAKER) [address] [place] [address] Calcium [Mass/Vol] 9.1 mg/dL Normal 8.6-10.3 [facility] Comment on above: Performed By: #### L [id number] #### [facility] (BEAKER) [address] [place] [address] Chloride [Moles/Vol] 96 mmol/L Low 98-107 [facility] Comment on above: Performed By: #### L [id number] #### [facility] (BEAKER) [address] [place] [address] CO2 [Moles/Vol] 22 mmol/L Normal 21-[address] [facility] Comment on above: Performed By: #### L [id number] #### [facility] (BEAKER) [address] [place] [address] Creatinine [Mass/Vol] 1.00 mg/dL Normal 0.70-1.[address] [facility] Comment on above: Performed By: #### L [id number] #### [facility] (BEAKER) [address] [place] [address] GLOMERULAR FILTRATION RATE ML/MIN/1.73 SQ M.PREDICTED 81.0 mL/min/1.73m*2 Normal >60.0 [facility] Comment on above: Result Comment: The [facility]???s estimated glomerular filtration rate (eGFR) will [...] individuals. Performed By: #### L [id number] #### [facility] ([facility]) [address] [place] [address] Glucose [Mass/Vol] 108 mg/dL High 70-100 [facility] Comment on above: Performed By: #### L [id number] #### [facility] ([facility]) [address] [place] [address] Potassium [Moles/Vol] 4.8 mmol/L Normal 3.5-5.[address] [facility] Comment on above: Performed By: #### L [id number] #### [facility] ([facility]) [address] [place] [address] Sodium [Moles/Vol] 127 mmol/L Low 136-145 [facility] Comment on above: Performed By: #### L [id number] #### [facility] ([facility] [address] [place] [address] Urea nitrogen [Mass/Vol] 13 mg/dL Normal 7-25 [facility] Comment on above: Performed By: #### L [id number] #### [facility] ([facility] [address] [address] UREA NITROGEN/CREATININE (MASS RATIO) IN SER/PLAS 13.0 Normal [facility] Comment on above: Performed By: #### L [id number] #### [facility] ([facility]) [address] [place] [address] CBCon 10-13-2023 Erythrocyte distribution width (RBC) [Ratio] 14.2 % Normal 11.5-15.0 [facility] Comment on above: Performed By: #### L [id number] #### [facility] ([facility]) [address] [place] [address] ERYTHROCYTE MEAN CORPUSCULAR HEMOGLOBIN CONCENTRATION (G/DL) BY AUTOMATED 34.5 g/dL Normal 32.0-35.0 [facility] Comment on above: Performed By: #### L [id number] #### [facility] ([facility]) [address] [place] [address] Hematocrit (Bld) [Volume fraction] 38.0 % Low 39.0-55.0 [facility] Comment on above: Performed By: #### L [id number] #### [facility] ([facility]) [address] [place] [address] Hemoglobin (Bld) [Mass/Vol] 13.1 g/dL Normal 13.0-17.0 [facility] Comment on above: Performed By: #### L [id number] #### [facility] ([facility]) [address] [place] [address] MCH (RBC) [Entitic mass] 34.4 pg High 27.0-33.0 [facility] Comment on above: Performed By: #### L [id number] #### [facility] ([facility]) [address] [place] [address] MCV (RBC) [Entitic vol] 99.7 fL High 82.0-98.0 [facility] Comment on above: Performed By: #### L [id number] #### [facility] ([facility]) [address] [place] [address] PLATELETS (10*3/UL) IN BLOOD AUTOMATED COUNT 212 10*3/uL Normal 150-400 [facility] Comment on above: Performed By: #### L [id number] #### [facility] ([facility]) [address] [place] [address] RBC (Bld) [#/Vol] 3.81 10*6/uL Low 4.20-5.70 [facility] Comment on above: Performed By: #### L [id number] #### [facility] ([facility]) [address] [place] [address] WBC (Bld) [#/Vol] 6.20 10*3/uL Normal 4.00-10.60 [facility] Comment on above: Performed By: #### L [id number] #### [facility] ([facility]) [address] [place] [address] HEPATIC FUNCTION PANELon Albumin [Mass/Vol] 3.4 g/dL Low 3.5-5.7 [facility] Comment on above: Performed By: #### L [id number] #### [facility] ([facility]) [address] [place] [address] ALP [Catalytic activity/Vol] 114 U/L High 34-104 [facility] Comment on above: Performed By: #### L [id number] #### [facility] ([facility]) [address] [place] [address] ALT [Catalytic activity/Vol] 23 U/L Normal 7-52 [facility] Comment on above: Performed By: #### L [id number] #### [facility] ([facility]) [address] [place] [address] AST [Catalytic activity/Vol] 48 U/L High 13-39 [facility] Comment on above: Performed By: #### L [id number] #### [facility] ([facility]) [address] [place] [address] Bilirubin [Mass/Vol] 1.5 mg/dL High 0.3-1.0 [facility] Comment on above: Performed By: #### L [id number] #### [facility] (BEAKER) [address] [place] [address] Magnesium [Mass/Vol] 0.5 mg/dL High 0-0.2 [facility] Comment on above: Performed By: #### L [id number] #### [facility] (BEAKER) [address] [place] [address] Protein [Mass/Vol] 7.8 g/dL Normal 6.0-8.3 [facility] Comment on above: Performed By: #### L [id number] #### [facility] (BEAKER) [address] [place] [address] Labon 10-13-2023 Lab [id number] JamiaAmbrosio emma 1955 M Date Provider Department Center 10/13/2023 2244-[facility] MP LAB RESOURCE MP DRAW Medical Pavi No family history on file Normal [facility] Office Visiton 10-13-2023 Follow-up visit [id number] Ambrosio Blandon 1955 M Date Provider Department Center 10/13/2023 298-IRENA JOHNSON MP GI Medical Pavi No family history on file Level of Service:36978 MT OFFICE/OUTPATIENT ESTABLISHED HIGH MDM 40 MIN (GC) Reason for Visit and Comments: Cirrhosis [239] Ascites [295] Normal [facility] PROTIME-INRon 10-13-2023 INR IN PPP BY COAGULATION ASSAY 1.17 High 0.90-1.10 [facility] Comment on above: Result Comment: ACCC [...] RANGE. CHEST 1995;108:231S-246S. Performed By: #### L [id number] #### [facility] ([employer]) [address] [place] [address] PROTHROMBIN TIME (PT) IN PPP BY COAGULATION ASSAY 14.9 Seconds High 12.3-14.8 [facility] Comment on above: Performed By: #### L [id number] #### [facility] (AKER) [address] [place] [address] Orders Onlyon 10-06-2023 Orders Only [id number] Ambrosio Blandon 1955 M Date Provider Department Center 10/06/2023 [id number], HISTORICAL MP GI Medical Pavi No family history on file Normal [facility] Mayito 10-03-2023 L Specimen: [id number] Received: 10/04/23 Status: HUSAM Coffey Num: [id number] Spec Type: Cytology Subm Dr: Arias Jesus MD Tissues: A ASCITES (ASC) Procedures: HE/2, Gross/Micro L4, Cyto Prepstain, PAPSTN Age/ Patient Sex Location Account Attending Physician Charles Blandon 68/M LABELL [id number] Ward Stern MD SPEC NUM: [id number] RECD: 10/04/23 STATUS: SERAEmilie COFFEY NUM: [id number] WEN: 10/03/[address]: Arias Jesus MD ENTERED: 10/04/23 [facility] DR: Aliza Arroyo MD SPEC TYPE: Cytology DEPT: MARLEN NVMORRIS ENTERED BY: [id number] RECV BY: [id number] ORDERED: HE/2, Gross/Micro L4, Cyto Prepstain, PAPSTN ORDERED: HE/2, Gross/Micro L4, Cyto Prepstain, PAPSTN Pathological Diagnosis Ascites fluid cytology: Atypical cells noted. Clinical Information cirrhosis, liver lesion Gross Description Received is 1000 ml yellow cloudy unfixed fluid for cytology said to have been obtained as abdominal ascites fluid. ThinPrep and cell block preparations are prepared for microscopic examination. (SC/tn) CPT Codes 89945 Specimen: [id number] Received: 10/04/23 Status: SERAEmilie Coffey Num: [id number] Spec Type: Cytology Subm Dr: Arias Jesus MD Tissues: A ASCITES (ASC) Procedures: HE/2, Gross/Micro L4, Cyto Prepstain, PAPSTN Patient: Charles Blandon [id number] (Continued) Signed (signature on file) Linette Bean MD 10/05/23 1340 Normal [facility] Orders Onlyon 09-27-2023 Orders Only [id number] Ambrosio Blandon [facility] 1955 M Date Provider Department [place] 09/27/2023 HARSHA FELIX [facility] GI [facility] No family history on file Normal [facility] CREATININE, SERUMon 09-25-19 Creatinine [Mass/Vol] 1.06 mg/dL Normal 0.70-1.30 [facility] Comment on above: Performed By: #### L [id number] #### [facility] (BEAKER) [address] [place] [address] GLOMERULAR FILTRATION RATE ML/MIN/1.73 SQ M.PREDICTED 75.5 mL/min/1.73m*2 Normal >60.0 [facility] Comment on above: Result Comment: The [facility]???s estimated glomerular filtration rate (eGFR) will [...] individuals. Performed By: #### L [id number] #### [facility] (BEAKER) [address] [place] [address] CTA ABDOMEN PELVIS W IV CONT [facility] 09-25-2023 CTA ABDOMEN PELVIS W IV CONTRAST [...] Gan MD. Not Vldtd Invalid Interpretation Code [facility] Labon 09-25-2023 Lab [id number] Ambrosio Blandon 1955 M Date Provider Department [place] 09/25/2023 2245-[facility] OPD LAB RESOURCE [facility] OPD [place] Medical C No family history on file Normal [facility] Orders Onlyon 09-23-2023 Orders Only [id number] Jamia,Wil emma 1955 M Date Provider Department Center 09/23/2023 Lydia-HARSHA CONNER [facility] GI [facility] No family history on file Normal [facility] Orders Onlyon 09-15-2023 Orders Only [id number] Jamia,Wil emma 1955 M Date Provider Department Center 09/15/2023 BROOKLYNN ZEPEDA GI Medical Pavi No family history on file Normal [facility] Orders Onlyon 09-14-2023 Orders Only [id number] Jamia,Ambrosio emma 1955 M Date Provider Department Center 09/14/2023 BROOKLYNN ZEPEDA MP GI Medical Pavi No family history on file Normal [facility] Orders Onlyon 08-28-2023 Orders Only [id number] Jamia,Wil emma 1955 M Date Provider Department Center 08/28/2023 [id number], HISTORICAL MP GI Medical Pavi No family history on file Normal [facility] Orders Onlyon 08-24-2023 Orders Only [id number] Ambrosio Blandon emma 1955 M Date Provider Department Center 08/24/2023 [id number], HISTORICAL MP GI Medical Pavi No family history on file Normal [facility] 29on 08-09-2023 29 Addended by: ARIAS JESUS on: 08/09/2023 12:50 PM Modules accepted: Orders Normal [facility] Orders Onlyon 08-09-2023 Orders Only [id number] Ambrosio Blandon emma 1955 M Date Provider Department Center 08/09/2023 [id number] SANTIZO MP GI Medical Pavi No family history on file Normal [facility] Office Visiton 08-07-2023 Follow-up visit [id number] Ambrosio Blandon emma 1955 M Date Provider Department Center 08/07/2023 294-ARIAS JESUS MP GI Medical Pavi No family history on file Level of Service:92866 MT OFFICE/OUTPATIENT NEW LOW MDM 30 MINUTES (GC) Reason for Visit and Comments: New Patient [632] Weight Loss [186840] - 30 pound weight loss since . Pt recently had surgery for 3 polyps removed and 1 hemorrhoid removal. Dyskenisia of esophgaus [Other] Nausea [70] Vomiting [120] - Pt has a urge to but does not vomit. Normal [facility] Mayito 06-13-2023 L Specimen: [id number] Received: 06/14/23 Status: HUSAM Coffey Num: [id number] Spec Type: Surgical Subm Dr: Janneth Villegas DO Tissues: A Hemorrhoids (HEMORRHOID 9:00) Procedures: HE, Gross/Micro L3 Age/ Patient Sex Location Account Attending Physician Charles Blandon 67/M [place] [id number] Janneth Villegas DO SPEC NUM: [id number] RECD: 06/14/23 STATUS: HUSAM COFFEY NUM: [id number] WEN: 06/13/[address]: Janneth Villegas DO ENTERED: 06/14/23 [facility] DR: SPEC TYPE: Surgical DEPT: S ORDERED: [...] cut surfaces with diffusely dilated blood-filled spaces. Chicken Picker sections are submitted in 1 cassette as follows: A1 - 1 training representative section from each fragment to demonstrate change in mucosal types of the largest fragment CPT Codes 37932 Specimen: [id number] Received: 06/14/23 Status: SERAEmilie Estuardo Num: [id number] Spec Type: Surgical Subm Dr: Janneth Villegas DO Tissues: A Hemorrhoids (HEMORRHOID 9:00) Procedures: Clark BARBOSA/Andi L3 Patient: Charles Blandon [id number] (Continued) Signed (signature on file) Linette Bean MD 06/27/235 Normal [facility] Automated basophil %Ordered By: Janneth Villegas on 06-02-2023 Basophils/100 WBC (Bld) 0.7 % Normal . [facility] Comment on above: Performed By: #### B MP, CBC #### [address] Automated basophil countOrde red By: Janneth Villegas on 06-02-2023 Basophils (Bld) [#/Vol] 0.0 10*3/uL Normal 0.0-0.2 [facility] Comment on above: Result Comment: PERF ORMED BY: [place] [address] PATHOLOGIST CHIEF OF PRODUCTION CLARK LEARY M.D. Performed By: #### B MP, CBC #### [address] Automated blood monocyte cou ntOrdered By: Janneth Villegas on 06-02-2023 Monocytes (Bld) [#/Vol] 0.9 10*3/uL High 0.0-0.8 [facility] Comment on above: Performed By: #### B MP, CBC #### [address] Automated eosinophil %Ordere d By: Janneth Villegas on 06-02-2023 Eosinophils/100 WBC (Bld) 1.9 % Normal . [facility] Comment on above: Performed By: #### B MP, CBC #### [address] Automated eosinophil countOr dered By: Janneth Villegas on 06-02-2023 Eosinophils (Bld) [#/Vol] 0.1 10*3/uL Normal 0.0-0.45 [facility] Comment on above: Performed By: #### B MP, CBC #### [address] Automated monocyte %Ordered By: Janneth Villegas on 06-02-2023 Monocytes/100 WBC (Bld) 15.7 % Normal . [facility] Comment on above: Performed By: #### B MP, CBC #### [address] Automated neutrophil %Ordere d By: Janneth Villegas on 06-02-2023 Neutrophils/100 WBC (Bld) 68.5 % Normal . [facility] Comment on above: Performed By: #### B MP, CBC #### [address] Basic Metabolic Panelon 05-18 GFR/1.73 sq M.predicted MDRD (S/P/Bld) [Vol rate/Area] mL/min/{1.73_m2} Normal [facility] Comment on above: Performed By: #### B MP, CBC #### [address] Calcium [Mass/volume] in Ser um or PlasmaOrdered By: Janneth Villegas on 06-02-2023 Calcium [Mass/Vol] 8.6 mg/dL Normal 8.6-10.3 [facility] Comment on above: Result Comment: PERF ORMED BY: [place] [address] PATHOLOGIST CHIEF OF [employer]ODUCTION CLARK LEARY M.D. Performed By: #### B MP, CBC #### [address] Carbon dioxide, total [Moles /volume] in Serum or PlasmaOrdered By: Janneth Villegas on 06-02-2023 CO2 [Moles/Vol] 27.3 mmol/L Normal 21.0-31.0 [facility] Comment on above: Performed By: #### B MP, CBC #### [place] [address] [place] Chloride [Moles/volume] in S mateo or PlasmaOrdered By: Janneth Villegas on 06-02-2023 Chloride [Moles/Vol] 96 mmol/L Low 98-107 [facility] Comment on above: Performed By: #### B MP, CBC #### [facility] [address] [place] [address] [place] Complete Blood Count Auto Di ffon 06-02-2023 Mean Corpuscular HGB Conc 35.2 g/dL Normal 32.5-35.6 [facility] Comment on above: Performed By: #### B MP, CBC #### [address] NRBC% 0.1 /100{WBC} Normal 0-0.5 [facility] Comment on above: Performed By: #### B MP, CBC #### [address] Creatinine [Mass/volume] in Serum or PlasmaOrdered By: Janneth Villegas on 06-02-2023 Creatinine [Mass/Vol] 1.07 mg/dL Normal 0.70-1.30 [facility] Comment on above: Performed By: #### B MP, CBC #### [address] ECG 12 lead ECGon 06-02-2023 ECG 12 lead ECG [facility] [address] [place] [address] Electrocardiograph Report Signed Patient: Charles Blandon MR#: [id number] 66 : 1955 Acct:[id number] Age/Sex: 67 / M ADM Date: 06/02/23 [...] previous ECGs available Confirmed by Gurpreet Dyson ([id number]) on 06/02/2023 6:21:10 PM Referred By: DANNY VILLEGAS Electronically Signed By:Gurpreet Dyson Transcribed By: MUS Signed By Gurpreet Dyson MD 06/02/23 1821 Normal [facility] Erythrocyte distribution wid th [Ratio] by Automated countOrdered By: Janneth Villegas on 06-02-2023 Erythrocyte distribution width (RBC) [Ratio] 13.8 % Normal 12.0-14.8 [facility] Comment on above: Performed By: #### B MP, CBC #### [facility] [address] [place] [address] [place] Erythrocytes [#/volume] in B lood by Automated countOrdered By: Janneth Villegas on 06-02-2023 RBC (Bld) [#/Vol] 3.45 10*6/uL Low 3.90-5.60 [facility] Comment on above: Performed By: #### B MP, CBC #### [facility] [address] [place] [address] [place] Glucose [Mass/volume] in Ser um or PlasmaOrdered By: Janneth Villegas on 06-02-2023 Glucose [Mass/Vol] 132 mg/dL High 70-100 [facility] Comment on above: ADA recommended refe rence rangeRandom Glucose Reference Range is dependent on time and content of last meal. Glucose of more than 200 mg/dL in a nonstressed, ambulatory subject supports the diagnosis of Diabetes Mellitus. Result Comment: [place] om Glucose Reference Range is dependent on time and content of last meal. Glucose of more than 200 mg/dL in a nonstressed, ambulatory subject supports the diagnosis of Diabetes Mellitus. ADA recommended reference range Performed By: #### B MP, CBC #### [facility] [address] [place] [id number] [place] Hematocrit [Volume Fraction] of Blood by Automated countOrdered By: Janneth Villegas on 06-02-2023 Hematocrit (Bld) [Volume fraction] 35.5 % Low 38.8-50.0 [facility] Comment on above: Performed By: #### B MP, CBC #### [facility] [address] [place] [phone] [place] Hemoglobin [Mass/volume] in BloodOrdered By: Janneth Villegas on 06-02-2023 Hemoglobin (Bld) [Mass/Vol] 12.5 g/dL Low 13.0-17.0 [facility] Comment on above: Performed By: #### B MP, CBC #### [address] Leukocytes [#/volume] correc jamila for nucleated erythrocytes in Blood by Automated counOrdered By: Janneth Villegas on 06-02-2023 WBC corrected for nucl RBC Auto (Bld) [#/Vol] 5.7 10*3/uL 4.1-10.5 [facility] Leukocytes [#/volume] in Blo od by Automated countOrdered By: Janneth Villegas on 06-02-2023 WBC (Bld) [#/Vol] 5.7 10*3/uL Normal 4.1-10.5 [facility] Comment on above: Performed By: #### B MP, CBC #### [address] Lymphocytes [#/volume] in Bl ood by Automated countOrdered By: Janneth Villegas on 06-02-2023 Lymphocytes (Bld) [#/Vol] 0.7 10*3/uL Low 1.00-4.8 [facility] Comment on above: Performed By: #### B MP, CBC #### [place] [address] [place] Lymphocytes/100 leukocytes i n Blood by Automated countOrdered By: Janneth Villegas on 06-02-2023 Lymphocytes/100 WBC (Bld) 13.2 % Normal . [facility] Comment on above: Performed By: #### B MP, CBC #### [place] [address] [place] MCH [Entitic mass] by Automa jamila countOrdered By: Janneth Villegas on 06-02-2023 MCH (RBC) [Entitic mass] 36.2 pg High 27.5-35.2 [facility] Comment on above: Performed By: #### B MP, CBC #### [facility] [address] MCHC Auto (RBC) [Mass/Vol]Or dered By: Janneth Villegas on 06-02-2023 MCHC (RBC) [Mass/Vol] 35.2 g/dL 32.5-35.6 [facility] MCV [Entitic volume] by Auto mated countOrdered By: Janneth Villegas on 06-02-2023 MCV (RBC) [Entitic vol] 102.9 fL High 83.5-101 [facility] Comment on above: Performed By: #### B MP, CBC #### [facility] [address] [place] [address] Neutrophils [#/volume] in Bl ood by Automated countOrdered By: Janneth Villegas on 06-02-2023 Neutrophils (Bld) [#/Vol] 3.9 10*3/uL Normal 1.8-7.7 [facility] Comment on above: Performed By: #### B MP, CBC #### [facility] [address] [place] [address] No Panel InformationOrdered By: Janneth Villegas on 06-02-2023 Estimated GFR (CKD-EPI) > 60.0 mL/Min [facility] Creatinine Clearance (Chem N/A [facility] Nucleated erythrocytes [Pres ence] in Blood by Automated countOrdered By: Janneth Villegas on 06-02-2023 Nucleated RBC Auto Ql (Bld) 0.1 /100{WBC} 0-0.5 [facility] Platelet mean volume [Entiti c volume] in Blood by Automated countOrdered By: Janneth Villegas on 06-02-2023 Platelet mean volume (Bld) [Entitic vol] 8.1 fL Normal 6.6-10.1 [facility] Comment on above: Performed By: #### B MP, CBC #### [facility] [address] [place] [address] Platelets [#/volume] in Bloo d by Automated countOrdered By: Janneth Villegas on 06-02-2023 Platelets (Bld) [#/Vol] 153 10*3/uL Normal 150-450 [facility] Comment on above: Performed By: #### B MP, CBC #### [facility] [address] [place] [address] [place] Potassium [Moles/volume] in Serum or PlasmaOrdered By: Janneth Villegas on 06-02-2023 Potassium [Moles/Vol] 4.8 mmol/L Normal 3.5-5.1 [facility] Comment on above: Performed By: #### B MP, CBC #### [facility] [facility] [address] Serum or plasma anion gap de terminationOrdered By: Janneth Villegas on 06-02-2023 Anion gap [Moles/Vol] 13.5 mmol/L Normal 6.0-15.[address] [facility] Comment on above: Performed By: #### B MP, CBC #### [facility] [address] [place] [address] [place] Sodium [Moles/volume] in Ser um or PlasmaOrdered By: Janneth Villegas on 06-02-2023 Sodium [Moles/Vol] 132 mmol/L Low 136-145 [facility] Comment on above: Performed By: #### B MP, CBC #### [facility] [address] [place] [address] [place] Urea nitrogen [Mass/volume] in Serum or PlasmaOrdered By: Janneth Villegas on 06-02-2023 Urea nitrogen [Mass/Vol] 12 mg/dL Normal 7-25 [facility] Comment on above: Performed By: #### B MP, CBC #### [facility] [address] [place] [address] [place] NM gastric emptying studyon 04-26-2023 NM gastric emptying study [facility] [place] [address] [place] [address] Nuclear Medicine Report Signed Patient: Charles Blandon MR#: [id number] 66 : 1955 Acct:[id number] Age/Sex: 67 / M ADM Date: 04/26/23 Loc: [place] Room: Type: [facility] Attending Dr: Lorna Ortega APRN Copies to: Morales Alvarez Jr, DO Ryan M Scovanner, APRN Ordering Provider: Lorna Ortega APRN Date of Service: 04/26/23 [place] gastric emptying study: Nausea;Early satiety GASTRIC EMPTYING [...] 1/2 for gastric emptying is 11 minutes. [place] gastric emptying study IMPRESSION: NO SCINTIGRAPHIC EVIDENCE OF GASTROPARESIS. Impression dictated by: Morales Alvarez Jr., D.O.04/26/2023 10:18 AM Dictation Location: [place] [address] Transcribed By: [facility] 04/26/23 1018 Dictated By: Morales Alvarez Jr, DO 04/26/23 1017 Signed By: 04/26/23 1018 Normal [facility] Albumin [Mass/volume] in Ser um or Plasma by Bromocresol green (BCG) dye binding methoOrdered By: Lorna Ortega on 04-12-2023 Albumin BCG dye [Mass/Vol] 3.0 g/dL 3.5-5.7 [facility] Bilirubin.total [Mass/volume ] in Serum or PlasmaOrdered By: Lorna Ortega on 04-12-2023 Bilirubin [Mass/Vol] 1.3 mg/dL High 0.3-1.0 [facility] Comment on above: Samples from patient s who have taken Naproxen have shown spurious elevation in Total Bilirubin levels. A metabolite of Naproxen, O-desmethylnaproxen, has been shown to interfere with the Jenjonnaik-Grof method for measuring Total Bilirubin. Order Comment: Reaso n for Exam Cirrhosis of liver Result Comment: Samp les from patients who have taken Naproxen have shown spurious elevation in Total Bilirubin levels. A metabolite of Naproxen, O-desmethylnaproxen, has been shown to interfere with the Baljit-Barrington method for measuring Total Bilirubin. Performed By: #### C MP #### [facility] [address] Calcium [Mass/volume] in Ser um or PlasmaOrdered By: Lorna Ortega on 04-12-2023 Calcium [Mass/Vol] 8.3 mg/dL Low 8.6-10.3 [facility] Comment on above: Order Comment: Reaso n for Exam Cirrhosis of liver Performed By: #### C MP #### [facility] [address] Carbon dioxide, total [Moles /volume] in Serum or PlasmaOrdered By: Lorna Ortega on 04-12-2023 CO2 [Moles/Vol] 27.3 mmol/L Normal 21.0-31.0 [facility] Comment on above: Order Comment: Reaso n for Exam Cirrhosis of liver Performed By: #### C MP #### [facility] [address] [place] [id number] [facility] Comprehensive Metabolic Pane mayito 04-12-2023 Albumin [Mass/Vol] 3.167218 g/dL Low 3.5-5.7 g/dL [employer] Other Bilirubin [Mass/Vol] 1.8095319 mg/dL High 0.3- 1.0 mg/dL [employer] Other Calcium [Mass/Vol] 8.5892933 mg/dL Low 8.6-10 .3 mg/dL [employer] Other CO2 [Moles/Vol] 27.81835247 mmol/L Normal 21.0-3 1.0 mmol/L [employer] Other Creatinine [Mass/Vol] 0.94673434 mg/dL Normal 0. 70-1.30 mg/dL [employer] Other Potassium [Moles/Vol] 5.48568735 mmol/L Normal 3 .5-5.1 mmol/L [employer] Other Protein [Mass/Vol] 6.583036 g/dL Low 6.4-8.9 g/dL [employer] Other Comprehensive Metabolic Panel 3.3 g/dL [employer] Other Albumin [Mass/Vol] 3.0 g/dL Low 3.5-5.7 [facility] Comment on above: Order Comment: Reaso n for Exam Cirrhosis of liver Performed By: #### C MP #### [facility] [address] [place] [address] [place] GFR/1.73 sq M.predicted MDRD (S/P/Bld) [Vol rate/Area] mL/min/{1.73_m2} Normal [place] [employer] Other Comment on above: Order Comment: Reaso n for Exam Cirrhosis of liver Performed By: #### C MP #### [facility] [address] [place] [address] Comprehensive Metabolic Pane lOrdered By: Lorna Ortega on 04-12-2023 Albumin/Globulin [Mass ratio] 0.9 {ratio} Normal [facility] Comment on above: Order Comment: Reaso n for Exam Cirrhosis of liver Performed By: #### C MP #### [place] [id number] [facility] ALP [Catalytic activity/Vol] 158 U/L High 34-104 [facility] Comment on above: Order Comment: Reaso n for Exam Cirrhosis of liver Result Comment: PERF ORMED BY: [place] [address] PATHOLOGIST [employer]IEF OF [employer]ODUCTION CLARK LEARY M.D. Performed By: #### C MP #### [facility] [address] [place] [address] [place] ALT [Catalytic activity/Vol] 35 U/L Normal 7-52 [facility] Comment on above: Order Comment: Reaso n for Exam Cirrhosis of liver Performed By: #### C MP #### [facility] [address] [place] [address] [place] AST [Catalytic activity/Vol] 76 U/L High 13-39 [facility] Comment on above: Order Comment: Reaso n for Exam Cirrhosis of liver Performed By: #### C MP #### [facility] [address] [place] [address] [place] Chloride [Moles/Vol] 95 mmol/L Low 98-107 [facility] Comment on above: Order Comment: Reaso n for Exam Cirrhosis of liver Performed By: #### C MP #### [facility] [address] [place] [address] [place] Glucose [Mass/Vol] 94 mg/dL Normal 70-100 [facility] Comment on above: ADA recommended refe rence rangeRandom Glucose Reference Range is dependent on time and content of last meal. Glucose of more than 200 mg/dL in a nonstressed, ambulatory subject supports the diagnosis of Diabetes Mellitus. Order Comment: Reaso n for Exam Cirrhosis of liver Result Comment: [place] om Glucose Reference Range is dependent on time and content of last meal. Glucose of more than 200 mg/dL in a nonstressed, ambulatory subject supports the diagnosis of Diabetes Mellitus. ADA recommended reference range Performed By: #### C MP #### [facility] [address] [place] [address] [place] Sodium [Moles/Vol] 127 mmol/L Low 136-145 [facility] Comment on above: Order Comment: Reaso n for Exam Cirrhosis of liver Performed By: #### C MP #### [facility] [address] [place] [address] [place] Urea nitrogen [Mass/Vol] 9 mg/dL Normal 7-25 [facility] Comment on above: Order Comment: Reaso n for Exam Cirrhosis of liver Performed By: #### C MP #### [facility] [address] [place] [address] [place] Creatinine [Mass/volume] in Serum or PlasmaOrdered By: Lorna Ortega on 04-12-2023 Creatinine [Mass/Vol] 0.81 mg/dL Normal 0.70-1.30 [facility] Comment on above: Order Comment: Reaso n for Exam Cirrhosis of liver Performed By: #### C MP #### [address] No Panel InformationOrdered By: Lorna Ortega on 04-12-2023 Estimated GFR (CKD-EPI) > 60.0 mL/Min [facility] Creatinine Clearance (Chem N/A [facility] Potassium [Moles/volume] in Serum or PlasmaOrdered By: Lorna Ortega on 04-12-2023 Potassium [Moles/Vol] 5.1 mmol/L Normal 3.5-5.1 [facility] Comment on above: Order Comment: Reaso n for Exam Cirrhosis of liver Performed By: #### C MP #### [address] Protein [Mass/volume] in Ser um or PlasmaOrdered By: Lorna Ortega on 04-12-2023 Protein [Mass/Vol] 6.3 g/dL Low 6.4-8.9 [facility] Comment on above: Order Comment: Reaso n for Exam Cirrhosis of liver Performed By: #### C MP #### [address] Serum globulin measurement b y calculation (mass/volume)Ordered By: Lorna Ortega on 04-12-2023 Globulin (S) [Mass/Vol] 3.3 g/dL Normal [facility] Comment on above: Order Comment: Reaso n for Exam Cirrhosis of liver Performed By: #### C MP #### [address] Serum or plasma anion gap de terminationOrdered By: Lorna Ortega on 04-12-2023 Anion gap [Moles/Vol] 9.8 mmol/L Normal 6.0-15.0 [facility] Comment on above: Order Comment: Reaso n for Exam Cirrhosis of liver Performed By: #### C MP #### [address] XR RIBS 2 VIEWS LEFT WITH [...] muscle IgG Qn (S) 8 Units 0-19 [facility] Comment on above: Negative 0 - 19 Weak positive 20 - 30 Moderate to strong positive >30 Actin Antibodies are found in 52-85% of patients with autoimmune hepatitis or chronic active hepatitis and in 22% of patients with primary biliary cirrhosis. Alanine aminotransferase [En zymatic activity/volume] in Serum or PlasmaOrdered By: Lex Carroll on 09-21-2022 ALT [Catalytic activity/Vol] 30 U/L 7-52 [facility] Albumin [Mass/volume] in Ser um or Plasma by Bromocresol green (BCG) dye binding methoOrdered By: Lex Carroll on 09-21-2022 Albumin BCG dye [Mass/Vol] 3.6 g/dL 3.5-5.7 [facility] Alkaline phosphatase [Enzyma tic activity/volume] in Serum or PlasmaOrdered By: Lex Carroll on 09-21-2022 ALP [Catalytic activity/Vol] 96 U/L 34-104 [facility] Aspartate aminotransferase [ Enzymatic activity/volume] in Serum or PlasmaOrdered By: Lex Carroll on 09-21-2022 AST [Catalytic activity/Vol] 55 U/L 13-39 [facility] Basophils Auto (Bld) [#/Vol] Ordered By: Lex Carroll on 09-21-2022 Basophils (Bld) [#/Vol] 0.0 10*3/uL 0.0-0.2 [facility] Basophils/100 WBC Auto (Bld) Ordered By: Lex Carroll on 09-21-2022 Basophils/100 WBC (Bld) 0.9 % . [facility] Bilirubin.total [Mass/volume ] in Serum or PlasmaOrdered By: Lex Carroll on 09-21-2022 Bilirubin [Mass/Vol] 0.9 mg/dL 0.3-1.0 [facility] Calcium [Mass/volume] in Ser um or PlasmaOrdered By: Lex Carroll on 09-21-2022 Calcium [Mass/Vol] 8.7 mg/dL 8.6-10.3 [facility] Carbon dioxide, total [Moles /volume] in Serum or PlasmaOrdered By: Lex Carroll on 09-21-2022 CO2 [Moles/Vol] 26.9 mmol/L 21.0-31.0 [facility] Chloride [Moles/volume] in S mateo or PlasmaOrdered By: Lex Carroll on 09-21-2022 Chloride [Moles/Vol] 108 mmol/L 98-107 [facility] Cholesterol [Mass/volume] in Serum or PlasmaOrdered By: Lex Carroll on 09-21-2022 Cholesterol [Mass/Vol] 175 mg/dL 140-[address] [facility] Comment on above: Chol less than 200 m g/dl low riskChol 201-239 mg/dl borderline riskChol 240 mg/dl and greater high risk Cholesterol in LDL Calc [Mas s/Vol]Ordered By: Lex Carroll on 09-21-2022 Cholesterol in LDL [Mass/Vol] 94 mg/dL 0-100 [facility] Comment on above: LDL ATP III CLASSIFI CATIONLDL less than 100 mg/dL OptimalLDL 100-129 mg/dL Near or above optimalLDL 130-159 mg/dL Borderline highLDL 160-189 mg/dL HighLDL greater than 189 mg/dL Very high Cholesterol in VLDL Calc [Ma ss/Vol]Ordered By: Lex Carroll on 09-21-2022 Cholesterol in VLDL [Mass/Vol] 21 mg/dL [facility] Creatinine [Mass/volume] in Serum or PlasmaOrdered By: Lex Carroll on 09-21-2022 Creatinine [Mass/Vol] 0.90 mg/dL 0.70-1.30 [facility] Eosinophils Auto (Bld) [#/Vo l]Ordered By: Lex Carroll on 09-21-2022 Eosinophils (Bld) [#/Vol] 0.2 10*3/uL 0.0-0.45 [facility] Eosinophils/100 WBC Auto (Bl d)Ordered By: Lex Carroll on 09-21-2022 Eosinophils/100 WBC (Bld) 3.6 % . [facility] Erythrocyte distribution wid th Auto (RBC) [Ratio]Ordered By: Lex Carroll on 09-21-2022 Erythrocyte distribution width (RBC) [Ratio] 14.2 % 12.0-14.8 [facility] Globulin Calc (S) [Mass/Vol] Ordered By: Lex Carroll on 09-21-2022 Globulin (S) [Mass/Vol] 2.8 g/dL [facility] Glucose [Mass/volume] in Ser um or PlasmaOrdered By: Lex Carroll on 09-21-2022 Glucose [Mass/Vol] 123 mg/dL 70-100 [facility] Comment on above: ADA recommended refe rence rangeRandom Glucose Reference Range is dependent on time and content of last meal. Glucose of more than 200 mg/dL in a nonstressed, ambulatory subject supports the diagnosis of Diabetes Mellitus. Hematocrit Auto (Bld) [Volum e fraction]Ordered By: Lex Carroll on 09-21-2022 Hematocrit (Bld) [Volume fraction] 37.5 % 38.8-50.0 [facility] Hemoglobin [Mass/volume] in BloodOrdered By: Lex Carroll on 09-21-2022 Hemoglobin (Bld) [Mass/Vol] 12.9 g/dL 13.0-17.0 [facility] Hepatitis B virus surface Ag [Presence] in Serum or Plasma by ImmunoassayOrdered By: Lex Carroll on 09-21-2022 HBV surface Ag IA Ql Negative Negative [facility] Hepatitis C virus IgG Ab [Pr esence] in Serum or Plasma by ImmunoassayOrdered By: Lex Carroll on 09-21-2022 HCV IgG IA Ql Non-Reactive Non Reactive [facility] Laboratory - CoagulationOrde red By: Lex Carroll on 09-21-2022 PT Coag (PPP) [Time] 13.0 s 9.0-12.9 [facility] Leukocytes [#/volume] correc jamila for nucleated erythrocytes in Blood by Automated counOrdered By: Lex Carroll on 09-21-2022 WBC corrected for nucl RBC Auto (Bld) [#/Vol] 4.2 10*3/uL 4.1-10.5 [facility] Lymphocytes Auto (Bld) [#/Vo l]Ordered By: Lex Carroll on 09-21-2022 Lymphocytes (Bld) [#/Vol] 1.1 10*3/uL 1.00-4.8 [facility] Lymphocytes/100 WBC Auto (Bl d)Ordered By: Lex Carroll on 09-21-2022 Lymphocytes/100 WBC (Bld) 27.1 % . [facility] MCH Auto (RBC) [Entitic mass ]Ordered By: Lex Carroll on 09-21-2022 MCH (RBC) [Entitic mass] 35.0 pg 27.5-35.2 [facility] MCHC Auto (RBC) [Mass/Vol]Or dered By: Lex Carroll on 09-21-2022 MCHC (RBC) [Mass/Vol] 34.4 g/dL 32.5-35.6 [facility] MCV Auto (RBC) [Entitic vol] Ordered By: Lex Carroll on 09-21-2022 MCV (RBC) [Entitic vol] 101.9 fL 83.5-101 [facility] Monocytes Auto (Bld) [#/Vol] Ordered By: Lex Carroll on 09-21-2022 Monocytes (Bld) [#/Vol] 0.5 10*3/uL 0.0-0.8 [facility] Monocytes/100 WBC Auto (Bld) Ordered By: Lex Carroll on 09-21-2022 Monocytes/100 WBC (Bld) 11.3 % . [facility] Neutrophils Auto (Bld) [#/Vo l]Ordered By: Lex Carroll on 09-21-2022 Neutrophils (Bld) [#/Vol] 2.4 10*3/uL 1.8-7.7 [facility] Neutrophils/100 WBC Auto (Bl d)Ordered By: Lex Carroll on 09-21-2022 Neutrophils/100 WBC (Bld) 57.1 % . [facility] No Panel InformationOrdered By: Lex Carroll on 09-21-2022 Estimated GFR (CKD-EPI) > 60.0 mL/Min [facility] Hepatitis B Core Total Antibody Negative Negative [facility] Comment on above: Performed at: - [place] [id number] Director: John Tang PhD, Phone: [phone] Hepatitis C Interpretation See comment . [facility] Comment on above: Not infected with HC V unless early or acute infection issuspected (which may be delayed in an immunocompromisedindividual), or other evidence exists to indicate HCVinfection. Hepatitis C RNA Quantitative N/A [facility] Creatinine Clearance (Chem 88.23 [facility] Nucleated erythrocytes [Pres ence] in Blood by Automated countOrdered By: Lex Carroll on 09-21-2022 Nucleated RBC Auto Ql (Bld) 0.2 /100{WBC} 0-0.5 [facility] Platelet mean volume Auto (B ld) [Entitic vol]Ordered By: Lex Carroll on 09-21-2022 Platelet mean volume (Bld) [Entitic vol] 9.8 fL 6.6-10.1 [facility] Platelet poor plasma interna tional normalized ratio (INR) by coagulation assay (relatOrdered By: Lex Carroll on 09-21-2022 INR Coag (PPP) [Relative time] 1.1 {INR} [facility] Comment on above: INR Therapeutic [...] 09-21-2022 Platelets (Bld) [#/Vol] 91 10*3/uL 150-450 [facility] Potassium [Moles/volume] in Serum or PlasmaOrdered By: Lex Carroll on 09-21-2022 Potassium [Moles/Vol] 5.0 mmol/L 3.5-5.1 [facility] Protein [Mass/volume] in Ser um or PlasmaOrdered By: Lex Carroll on 09-21-2022 Protein [Mass/Vol] 6.4 g/dL 6.4-8.9 [facility] RBC Auto (Bld) [#/Vol]Ordere d By: Lex Carroll on 09-21-2022 RBC (Bld) [#/Vol] 3.68 10*6/uL 3.90-5.60 [facility] Serum [id number] me asurementOrdered By: Lex Carroll on 09-21-2022 Alpha 1 antitrypsin [Mass/Vol] 205 mg/dL 101-187 [facility] Serum hepatitis B virus surf wal[place] antibody detectionOrdered By: Lex Carroll on 09-21-2022 HBV surface Ab Ql (S) Non-Reactive . [facility] Comment on above: Non Reactive: Incons istent with immunity, less than 10 mIU/mL Reactive: Consistent with immunity, greater than 9.9 mIU/mL Serum mitochondria M2 IgG an tibody assay (units/volume)Ordered By: Lex Carroll on 09-21-2022 Mitochondria M2 IgG Qn (S) <20.0 Units 0.0-20.0 [facility] Comment on above: Negative 0.0 - 20.0 Equivocal 20.1 - 24.9 Positive >24.9Mitochondrial (M2) Antibodies are found in 90-96% ofpatients with primary biliary cirrhosis.Performed at: [facility] [id number] Director: John Tang PhD, Phone: [phone] Serum or plasma albumin/glob ulin mass ratioOrdered By: Lex Carroll on 09-21-2022 Albumin/Globulin [Mass ratio] 1.3 {ratio} [facility] Serum or plasma alpha 1 anti trypsin phenotyping identification by immunofixationOrdered By: Lex Carroll on 09-21-2022 Alpha 1 antitrypsin phenotyping Immunofixation Nom Mm . [facility] Comment on above: Phenotype Population [...] reference. Ranges used to confirm phenotype.Performed at: [id number] [place], [place] [id number] Director: John Tang PhD, Phone: [phone] at: [facility] [id number] Director: George Brown MD, Phone: [phone] Serum or plasma anion gap de terminationOrdered By: Lex Carroll on 09-21-2022 Anion gap [Moles/Vol] 11.1 mmol/L 6.0-15.[address] [facility] Serum or plasma ceruloplasmi n measurement (mass/volume)Ordered By: Lex Carroll on 09-21-2022 Ceruloplasmin [Mass/Vol] 22.4 mg/dL 16.0-31.0 [facility] Comment on above: Performed at: [facility] [address] [place], [place] [id number] Director: John Tang PhD, Phone: [phone] Serum or plasma free cefurox nhi measurement (mass/volume)Ordered By: Lex Carroll on 09-21-2022 Cefuroxime free [Mass/Vol] Negative Negative [facility] Comment on above: Performed at: [employer] [place], [place] [id number] Director: John Tang PhD, Phone: [phone] Serum or plasma high density lipoprotein (HDL) cholesterol measurementOrdered By: Lex Carroll on 09-21-2022 Cholesterol in HDL [Mass/Vol] 60 mg/dL 23-92 [facility] Comment on above: HDL CHOL ATP-III CLA SSIFICATION Cardiovascular RiskHDL > or equal to 60 mg/dL LOWHDL < 40 mg/dL HIGH Serum or plasma total choles terol/high density lipoprotein (HDL) cholesterol mass ratOrdered By: Lex Carroll on 09-21-2022 Cholesterol.total/Chol esterol in HDL [Mass ratio] 2.9 {ratio} <5.0 [facility] Sodium [Moles/volume] in Ser um or PlasmaOrdered By: Lex Carroll on 09-21-2022 Sodium [Moles/Vol] 141 mmol/L 136-145 [facility] Triglyceride [Mass/volume] i n Serum or PlasmaOrdered By: Lex Carroll on 09-21-2022 Triglyceride [Mass/Vol] 107 mg/dL 0-149 [facility] Comment on above: TRIG ATP III CLASSIF ICATIONTRIG less than 150 mg/dL NormalTRIG 150-199 mg/dL Borderline highTRIG 200-500 mg/dL High TRIG greater than 500 mg/dL Very highStandard traceable to the Center for Disease Conrtrol and Prevention (CDC) test method. Urea nitrogen [Mass/volume] in Serum or PlasmaOrdered By: Lex Carroll on 09-21-2022 Urea nitrogen [Mass/Vol] 9 mg/dL 7-25 [facility] WBC Auto (Bld) [#/Vol]Ordere d By: Lex Carroll on 09-21-2022 WBC (Bld) [#/Vol] 4.2 10*3/uL 4.1-10.5 [facility] PROGRESSon 04-05-2017 PROGRESS HNO ID: [id number] Author: Bebe Cunningham Ma Service: (none) Author Type: (none) Type: Progress Notes Filed: 04/05/2017 7:36 AM Note Text: PCP updated Normal [facility] PROGRESS HNO ID: [id number] thor: Tanisha Horne: (none)Author Type: PhysicianType: Progress NotesFiled: 04/05/2017 7:36 AMNote Text:This note was created using [employer].Marcio Blandon is a 61 year old male.Review of SystemsObjectiveThere were no vitals taken for this visit.Physical ExamAssessment and PlanPlease remove me as PCP if he is moving out of state and plans toestablish elsewhere.Thank you. [facility] CNPTOUTREACHon 04-04-2017 [facility] Patient Outreach ([facility]) NATHANIEL BLANDON AM ([id number]) 1955 [facility] Wrfbjjpifs83/19/17 TANISHA VAZQUEZ [facility] During your visit today, we recorded the following information about you:Bebe Cunningham Ma 04/05/2017 7:36 AM SignedSee refill request 03/30, pt moving to out of [facility] , do you want to updatePCVivian Vazquez MD 04/05/2017 7:36 AM SignedThis note was created using [employer].Marcio Blandon is a 61 year old male.Review of SystemsObjectiveThere were no vitals taken for this visit.Physical ExamAssessment and PlanPlease remove me as PCP if he is moving out of state and plans to [facility].Thank you.Bebe Cunningham Ma 04/05/2017 7:36 AM SignedPCP updatedAllergies As of Date: 04/04/2017 Noted Allergy ReactionBACTRIM (SULFAMETHOXAZOLE-TRIMETH *12/15/2014 2 - RashDate Reviewed: 01/04/2017Reviewed by: Bebe Cunningham Ma - Fully AssessedReason for Visit: PHNC/Care Gap Outreach [8685]Prescriptions as of 04/04/2017 Sig: METOPROLOL SUCCINATE ER [...] polyps [Z86.010]Follow-up and Disposition History RecordedEncounter Number: [id number] Status:Closed by BEBE CUNNINGHAM MA on 04/05/17 [facility] PROGRESSon 04-04-2017 PROGRESS HNO ID: [id number] Author: Bebe Cunningham Ma Service: (none) Author Type: (none) Type: Progress Notes Filed: 04/05/2017 7:36 AM Note Text: See refill request 03/30, pt moving to out [facility] , do you want to update PCP Normal [facility] OBSOLETEon 03-30-2017 [facility]ill [facility] NATHANIEL BLANDON AM ([id number]) 1955 MDate Time Provider Oowhaujywy18/14/17 TANISHA VAZQUEZ [facility] During your visit today, we recorded the following information about you:Bebe Cunningham Ma 03/30/2017 4:25 PM SignedPt due for yearly split in Shyam Cunningham Ma 03/31/2017 3:12 PM SignedPt states they are moving to [place] he has apt to see a new [...] Status:Closed by VIRGINIA SAUCEDA CNP on 03/31/17 [facility] 02-13-2017 [facility] NATHANIEL BLAND[facility] AM ([id number]) 1955 MDate Time Provider Nrclfwoknk97/30/17 5:50 PM NURSE EYAD COLL[facility] by JUNAID OFFICE MGOTONIEL Ortega on 02/13/17 [facility] 02-13-2017 HOSP REFILL - [facility] NATHANIEL BLANDON AM ([id number]) 1955 MDate Time Provider Mevlxaacjm67/30/17 TANISHA VAZQUEZ During your visit today, we recorded the following information about you:Bebe Cunningham Ma 02/13/2017 2:35 PM SignedMessage from [facility]:Original authorizing provider: Ruben Iqbal would like a refill of the following medications:zolpidem (AMBIEN) 10 mg tab [Tanisha Vazquez MD]Preferred pharmacy: [id number] [place] [address] - [id number] - [phone] RICK HAIDER [id number]:Bebe Cunningham Ma 02/13/2017 2:38 PM SignedScript pending [...] Status:Closed by TANISHA VAZQUEZ MD on 02/13/17 [facility] CNOVon 01-04-2017 CNOV Office Visit ([facility]) NATHANIEL BLANDON AM ([id number]) 1955 MDate Time Provider Department01/04/17 9:00 AM TANISHA VAZQUEZ [facility] During your visit today, we recorded the following information about you: Temperature Pulse Blood pressure Weight 98.2 degrees 59/minute 172/93 98 kgAmber MD Taylor 01/04/2017 9:00 AM Sammy Blandon is a [...] AP/LAT/OBL LTAmber BAILEY Vazquezeferrfina Provider: TANISHA VAZQUEZ [[id number]]Allergies As of Date: 01/04/2017 Noted Allergy ReactionBACTRIM (SULFAMETHOXAZOLE-TRIMETH *12/15/2014 2 - RashDate Reviewed: 01/04/2017Reviewed by: Bebe Cunningham Ma - Fully AssessedReason for Visit: Acute Visit [896] Cmt: swollen toe x 2 weeksReason For Visit History RecordedPrimary Visit Diagnosis:Great toe pain, left [M79.675]Order(s):XR TOE AP/LAT/OBL LT [[id number]] Order #: [id number] FUTURE XR FOOT GENERAL 3V AP/LAT/OBL LT [[id number]] Order #: [id number] FUTUREPrescriptions as of 01/04/2017 Sig: METOPROLOL SUCCINATE [...] meals. Disc: Course of therapy completedEncounter Number: [id number] Status:Closed by TANISHA VAZQUEZ MD on 01/04/17 [facility] 01-04-2017 CNPN Telephone ([facility]) NATHANIEL BLANDON AM ([id number]) 1955 MDate Time Provider Department01/04/17 TANISHA VAZQUEZ [...] T TO ORTHOPAEDIC SURGERY [[id number]] Order #: [id number]: 1Prescriptions as of 01/04/2017 Sig: METOPROLOL SUCCINATE [...] by TANISHA VAZQUEZ MD on 01/04/[address] [facility] PROGRESSon 01-04-2017 PROGRESS HNO ID: [id number] thor: Jaclyn Lowe (Tech) Ej: (none)Author Type: TechnicianType: Progress NotesFiled: 01/04/2017 9:36 AMNote Text: Radiology Service Progress NotePATIENT NAME: Charles AyalagMRN: [id number] OF SERVICE: January 04, 2017TIME: 9:36 AMPATIENT IDENTITY VERIFICATION COMPLETED USING TWO (2) METHODS: Patientconfirmed name verbally and Date of .PATIENT GENDER DATA: MalePATIENT RELEVANT IMPLANT DATA REVIEWED: Not ApplicableRADIOLOGY DEPARTMENT: General X-ray: Exam(s) Completed: Lower ExtremityX-Ray(s): Foot, Left and Wt. Bearing and Toes, Left:PERIPHERAL IV DATA: Not applicableSIGNED BY: Jaclyn Diaz, RRTSept2016 9:36 AM [facility] PROGRESS HNO ID: [id number] thor: Tanisha Clarkice: (none)Author Type: PhysicianType: Progress [...] FOOT GENERAL 3V AP/LAT/OBL LTTanisha Vazquez MD [facility] XR FOOT 3V AP/LAT/OBL LTon 0 [...] phalanx with extension into the 1st IP joint.Airport Guide: PSCB Transcribe Date/Time: Jan 04 2017 10:28ADictated by : MALORIE NICHOLS MDThis examination was interpreted and the report reviewed and electronically signed by: MALORIE NICHOLS MD on Jan 04 2017 2:47PM [id number] [facility] XR TOE 3V AP/LAT/OBL LTon XR [...] phalanx with extension into the 1st IP joint.Airport Guide: PSCB Transcribe Date/Time: Jan 04 2017 10:28ADictated by : MALORIE NICHOLS MDThinikolai examination was interpreted and the report reviewed and electronically signed by: MALORIE NICHOLS MD on Jan 04 2017 2:47PM [id number] [facility] ([facility]) NATHANIEL BLANDON AM ([id number]) 1955 MDate Time Provider Department12/11/16 COY BLANCHARD [...] his uric acid level, as discussed.Any questions/concerns?Teodoro robertson Rosalina GONZALEZ 12/12/2016 8:53 AM SignedLeft message to call office. 12/12/2016 8:53 AMDanielmaynor Rosalina GONZALEZ 12/12/2016 12:28 PM SignedPatient informed and will [...] Status:Closed by COY BLANCHARD MD on 12/12/16 [facility] JAVIEROVsona 12-10-2016 CNOV Office Visit ([facility]) NATHANIEL BLANDON AM ([id number]) 1955 MDate Time Provider Department8/26/17 9:30 AM COY BLANCHARD [facility] During your visit today, we recorded the following information about you: Temperature Pulse Blood pressure Weight 98.5 degrees 88/minute 158/92 95.7 kgCoy Blanchard MD, 12/10/2016 9:59 AM Sammy Blandon [...] ?F) (Oral) Wt 95.7 kg (211 lb) ZgU931% BMI 30.71 kg/m2BMI 30.71 kg/(m2)General: alert and [...] diet- NAPROXEN 250 MG TABLET- URIC ACID BLOODCoy Blanchard MDAl[facility] 12/10/2016 9:58 AM SignedPhlebotomy was [...] 1 URIC ACID BLOOD [SQURIC] Order #: [id number] as of 12/10/2016 Sig: METOPROLOL SUCCINATE ER [...] to improve.Follow-up and Disposition History RecordedEncounter Number: [id number] Status:Closed by COY BLANCHARD MD on 12/10/16 [facility] PROGRESSon 12-10-2016 PROGRESS HNO ID: [id number] thor: Coy Blanchard, ANABELLAervice: (none)Author Type: PhysicianType: Progress NotesFiled: 12/10/2016 9:59 AMNote Text:Charles Blandon is a 61 year old male here complaining of left toe pain.According to the patient, he [facility]. Last night, [...] juan Blanchard MD Normal [facility] Uric Acidon 12-10-2016 Urate 8.2 mg/dL High 4.0-8.1 [facility] Comment on above: Performed By: #### U BARB ####[facility] [address] [place], [place] [phone] CNOVon 11-01-2016 CNOV Office Visit ([facility]) [facility]ATHANIEL BLANDON AM ([id number]) 1955 [facility]11/01/16 9:30 AM ROYCE ARAIZA [facility]ER[facility]JOHNATHON During your visit today, we recorded the following information about you: Pulse Blood pressure 57/minute 165/82Royce Araiza MD 11/01/2016 2:06 PM SignedDERMATOLOGY CONSULT FOR [facility]ICE DATE: 11/01/2016PRIMARY CARE PHYSICIAN: MORENA Iqbal PROVIDER:Tanisha Vazquez MD[address] [facility] [address]Ugrgksvysexb requested for an opinion regarding the evaluation and treatmentof skin cancer. My final impression and recommendations will be communicatedback to the requesting physician by way of the shared medical record or lettervia US mail.SUBJECTIVECHIEF COMPLAINT: BCCHISTORY OF PRESENT ILLNESSBIOPSY INFORMATION:1. Pathology Results: BCC Nodular and Ulcerated of the LEFT TEMPLEReport Number: Inside Pathology [id number] Performed: 08/10/2016Performed By: [facility] ProviderPast Treatment: No Past Treatment Tumor Type: PrimaryPresent For: unknown amount of month(s)Signs ANDamp; Symptoms: Non-healingPAST DERM HISTORY: No History of Skin CancerFAMILY HISTORY: No History of Skin CancerPAST MEDICAL HISTORYDiagnosis Date- Recinos's esophagus- GERD (gastroesophageal reflux disease)- HTN (hypertension)- Hx of colonic polyps- Osteoporosis- Umbilical herniaPAST SURGICAL [id number]: CHOLECYSTECTOMYNo date: COLONOSCOPY Comment: every 3 yearsNo [...] Nose, Chin, Lips, Ears, Periauricular Skin and Yazidi)Pre-op Size: 0.6 cm - 1 cm, (0.7cm [...] Past Histories independentlygathered by the clinical network desktop support specialist and the remaining scribed noteaccurately describes my personal service to the patient.SIGNATURE: Royce Araiza MD PATIENT NAME: Charles AyalagDATE: November 01, 2016 : 10:20 AM PAGER/CONTACT #:MOHS MICROGRAPHIC OPERATIVE REPORTSERVICE DATE: 11/01/2016SERVICE TIME: 9:10 AMLOCATION:[facility]oreRed[facility] [place] [address]REFERRING PROVIDER:Tanisha Vazquez MD[address] [facility] [id number] START TIME: 941PROCEDURE END TIME: 1052SURGEON: Dr. Royce AraizaRESIDENT: Dr. Sia AlfaroerANTICOAGULANTS:ASA, AleveIMPLANTED [...] Available at Bedside: Inside pathology report # [id number] Size: 0.6 cm - 1 cm, (0.7cm [...] surgery on a Primarytumor type from LEFT ADVENT (location of tumor).Post-op Defect Size: 1.0 x [...] GIVEN WITH VERBAL UNDERSTANDING: YesPATIENT DISCHARGED TO SECURITIES BROKER/NAME: SelfFOLLOW UP: Return for wound care check in 6 weeksSee Dermatology yearly or as needed for FSE'sPRNThe documentation for this note was completed by Lis Serrano RN acting asscribe for Royce Araiza MD. November 01, 2016 10:29 AM.I agree with the Chief Complaint, ROS, and Past Histories independentlygathered by the clinical network desktop support specialist and the remaining scribed noteaccurately [...] SurgeryDepartment to speak to a Nurse at [phone].After 5 pm, nights, and weekends, please call [phone] or and ask for the dermatology surgery fellow ultrasonic hand solderer.Referring Provider: TANISHA VAZQUEZ [[id number]]Allergies As of Date: 11/01/2016 Noted Allergy ReactionBACTRIM (SULFAMETHOXAZOLE-TRIMETH *12/15/2014 2 - RashDate Reviewed: 11/01/2016Reviewed by: Royce Araiza - Fully AssessedPrimary Visit Diagnosis:Basal cell carcinoma of left anabaptist region [C44.319]Prescriptions as of 11/01/2016 Sig: METOPROLOL [...] Department to speak to a Nurse at [phone]. After 5 pm, nights, and weekends, please call [phone] or and ask for the dermatology surgery fellow ultrasonic hand solderer.Disposition: Return in about 6 weeks (around 12/13/2016) for WOUND CHECK.Follow-up and Disposition History RecordedEncounter Number: [id number] Status:Closed by ROYCE ARAIZA MD on 11/01/[address] [facility] PROGRESSon 11-01-2016 PROGRESS HNO ID: [id number] thor: Royce Lindoervice: (none)Author Type: PhysicianType: Progress NotesFiled: 11/01/2016 2:06 PMNote Text:DERMATOLOGY CONSULT FOR MOHSSERVICE DATE: 11/01/2016PRIMARY CARE PHYSICIAN: MORENA Iqbal PROVIDER:Tanisha Vazquez MD[address] [place] [address]Consultation requested for an opinion regarding the evaluation andtreatment of skin cancer. My final impression and recommendations will becommunicated back to the requesting physician by way of the shared medicalrecord or letter via US mail.SUBJECTIVECHIEF COMPLAINT: BCCHISTORY OF PRESENT ILLNESSBIOPSY INFORMATION:1. Pathology Results: BCC Nodular and Ulcerated of the LEFT TEMPLEReport Number: Inside Pathology [id number] Performed: 08/10/2016Performed By: [facility] ProviderPast Treatment: No Past Treatment Tumor Type: PrimaryPresent For: unknown amount of month(s)Signs AND Symptoms: Non-healingPAST DERM HISTORY: No History of Skin CancerFAMILY HISTORY: No History of Skin CancerPAST MEDICAL HISTORYDiagnosis Date- Recinos's esophagus- GERD (gastroesophageal reflux disease)- HTN (hypertension)- Hx of colonic polyps- Osteoporosis- Umbilical herniaPAST SURGICAL [id number]: CHOLECYSTECTOMYNo date: COLONOSCOPY Comment: every 3 yearsNo [...] Eyebrows, Nose, Chin, Lips, Ears, Periauricular Skinand Yazidi)Pre-op Size: 0.6 cm - 1 cm, (0.7cm [...] Past Histories independentlygathered by the clinical network desktop support specialist and the remaining scribed noteaccurately describes my personal service to the patient.SIGNATURE: Royce Araiza MD PATIENT NAME: Charles AyalagDATE: November 01, 2016 : 10:20 AM PAGER/CONTACT #:MOHS MICROGRAPHIC OPERATIVE REPORTSERVICE DATE: 11/01/2016SERVICE TIME: 9:10 AMLOCATION:Celine Monzon [facility] [place], [place] [address]BPTVCKXXR PROVIDER:Tanisha Vazquez MD[address] [facility] [address]CVHAOCXKW START TIME: 941PROCEDURE END TIME: URGEON: Dr. [...] Available at Bedside: Inside pathology report # [id number] Size: 0.6 cm - 1 cm, (0.7cm X 0.8cm)Lymphadenopathy: NoneIndication for Mohs: Anatomic Location where lesion is prone to recur,Type of tumor, Age of patient and Ill-defined bordersLocation: Area H: (Mask Areas of the Face - Includes Central Face,Eyelids, Inner/Outer Canthi, Eyebrows, Nose, Chin, Lips, Ears,Periauricular Skin and Yazidi)Preparation: Povidone-iodineLAYER AThe patient was positioned, prepped with [...] surgery on aPrimary tumor type from LEFT ADVENT (location of tumor).Post-op Defect Size: 1.0 x [...] GIVEN WITH VERBAL UNDERSTANDING: YesPATIENT DISCHARGED TO SECURITIES BROKER/NAME: SelfFOLLOW UP: Return for wound care check in 6 weeksSee Dermatology yearly or as needed for FSE'sPRNThe documentation for this note was completed by Lis Serrano, RN acting asscribe for Royce Araiza MD. November 01, 2016 10:29 AM.I agree with the Chief Complaint, ROS, and Past Histories independentlygathered by the clinical network desktop support specialist and the remaining scribed noteaccurately describes my personal service to the patient.SIGNATURE: Royce Araiza MD PATIENT NAME: Charles AyalagDATE: November 01, 2016 : 9:10 AM PAGER/CONTACT #: Sammy [facility] CNNURSEon 10-17-2016 [facility] NATHANIEL BLANDON AM ([id number]) 1955 MDate Time Provider Department10/17/16 7:00 AM NURSE [facility] During your visit today, we recorded the following information about you:Constance Mancuso Grain Buyer 10/17/2016 1:46 PM SignedPhlebotomy was performed per the order of Tanisha Vazquez M.D.., accessing leftantecubital vein.Needle removed intact. Dressing secured with tape.Patient denies discomfort, dizziness, light-headedness, or weakness and leftthe office ambulatory..Referring Provider: TANISHA VAZQUEZ [[id number]]Allergies As of Date: 10/17/2016 Noted Allergy ReactionBACTRIM (SULFAMETHOXAZOLE-TRIMETH *12/15/2014 2 - RashDate Reviewed: 08/10/2016Reviewed by: Bebe Cunningham Ma - Fully AssessedVisit Diagnoses:Abnormal LFTs [R79.89] Elevated fasting blood sugar [R73.01]Order(s):COMP METABOLIC PANEL [SQCMP] Order #: [id number] HGB A1C [GZCSK2L] Order #: [id number] as of 10/17/2016 Sig: METOPROLOL SUCCINATE ER [...] of colonic polyps [Z86.010]Visit Notes:>> Constance Mancuso Grain Buyer Mon Oct 17, 2016 1:42 PM Status: SignedPhlebotomy was performed per the order of Tanisha Vazquez M.D.., accessingleft antecubital vein.Needle removed intact. Dressing secured with tape.Patient denies discomfort, dizziness, light-headedness, or weakness andleft the office ambulatory.. Status:Closed by CONSTANCE DE LA ROSA on 10/17/[address] [facility] Comp Metabolic Panelon 10-17 Alanine aminotransferase (ALT) 38 U/L Normal 10-54 [facility] Comment on above: Performed By: #### C MP, HBA1C ####[facility] [address] [place], [place] [phone] Albumin 4.1 g/dL Normal 3.9-4.9 [facility] Comment on above: Performed By: #### C MP, HBA1C ####[facility] [address] [phone] Alkaline phosphatase (ALP) 54 U/L Normal 36-108 [facility] Comment on above: Performed By: #### C MP, HBA1C ####[place] [address] [address] [phone] Anion gap 20 mmol/L High 9-18 [facility] Comment on above: Performed By: #### C MP, HBA1C ####[place] [address] [address] [place] [phone] Aspartate aminotransferase (AST) 43 U/L High 14-40 [facility] Comment on above: Performed By: #### C MP, HBA1C ####[place] [phone] Bilirubin (total) 0.3 mg/dL Normal 0.2-1.3 [facility] Comment on above: Performed By: #### C MP, HBA1C ####[place] [address] [address] [place] [phone] Calcium 9.5 mg/dL Normal 8.5-10.2 [facility] Comment on above: Performed By: #### C MP, HBA1C ####[place] [address] [address] [place] [phone] Chloride 101 mmol/L Normal 97-105 [facility] Comment on above: Performed By: #### C MP, HBA1C ####[place] [address] [address] [phone] CO2 23 mmol/L Normal 22-30 [facility] Comment on above: Performed By: #### C MP, HBA1C ####[place] [address] [address] [phone] Creatinine 1.02 mg/dL Normal 0.73-1.22 [facility] Comment on above: Performed By: #### C MP, HBA1C ####[place] [address] [address] [phone] eGFR (non-black) mL/min/{1.73_m2} Normal [facility] Comment on above: Performed By: #### C MP, HBA1C ####[facility] [place], [place] [phone] Result Comment: eGFR (Estimated GFR) Units of [...] Glucose mass conc 90 mg/dL Normal 74-99 [facility] Comment on above: Result Comment: The [place] [...] 1). Performed By: #### C MP, HBA1C ####[facility] [address] [place], [place] [phone] Potassium molar conc 4.6 mmol/L Normal 3.7-5.1 [facility] Comment on above: Performed By: #### C MP, HBA1C ####[facility] [address] [place], [place] [phone] Protein 7.1 g/dL Normal 6.3-8.0 [facility] Comment on above: Performed By: #### C MP, HBA1C ####[facility] [place], [place] [phone] Sodium 144 mmol/L Normal 136-144 [facility] Comment on above: Performed By: #### C MP, HBA1C ####[facility] [place], [place] [address] [place], [place] [phone] Urea nitrogen 18 mg/dL Normal 9-24 [facility] Comment on above: Performed By: #### C MP, HBA1C ####[place] [address] [place], [place] [phone] Hemoglobin A1con 10-17-2016 Glucose mass conc 120 mg/dL Normal [facility] Comment on above: Result Comment: eAG: (Estimated average glucose) is a calculated value from HgbA1c and is training representative of the average blood glucose level in the last 2-3 month period. Performed By: #### C MP, HBA1C ####[address] [phone] Hemoglobin A1c/Hemoglobin.total mass fraction (Bld) 5.8 % High 4.3-5.6 [facility] Comment on above: Result Comment: Amer [place] Diabetes Association guidelines indicate that patients with HgbA1c in the range 5.7-6.4% are at increased risk for development of diabetes, and intervention by lifestyle modification may be beneficial. HgbA1c greater or equal to 6.5% is considered diagnostic of diabetes. Performed By: #### C MP, HBA1C ####[address] [phone] Vital Signs Date Time Vital Sign Value Performing Clinician Facility 07-05-2023 08:58-0400 Body weight 94.85 kg II Rusty Delgado Work Phone: [facility] 07-05-2023 08:58-0400 Diastolic blood pressure 71 mm[Hg] JUDITH Delgado Work Phone: [facility] 07-05-2023 08:58-0400 Heart rate 88 /min II Rusty Delgado Work Phone: [facility] 07-05-2023 08:58-0400 Systolic blood pressure 121 mm[Hg] II Rusty Delgado Work Phone: [facility] 06-13-2023 17:15-0500 Diastolic blood pressure 62 mm[Hg] II Rusty Delgado Work Phone: [facility] 06-13-2023 17:15-0500 Heart rate 72 /min II Rusty Delgado Work Phone: [facility] 06-13-2023 17:15-0500 Respiratory rate 20 /min II Rusty Delgado Work Phone: [facility] 06-13-2023 17:15-0500 SaO2% (BldA) [Mass fraction] 94 % II Rusty Delgado Work Phone: [facility] 06-13-2023 17:15-0500 Systolic blood pressure 101 mm[Hg] II Rusty Delgado Work Phone: [facility] 06-13-2023 13:38-0500 Body height 175.26 cm II Rusty Delgado Work Phone: [facility] 06-13-2023 13:38-0500 Body mass index (BMI) [Ratio] 31.1 kg/m2 II Rusty Delgado Work Phone: [facility] 06-13-2023 13:38-0500 Body weight 95.7 kg II Rusty Delgado Work Phone: [facility] 06-13-2023 12:05-0500 Body temperature 98.2 [degF] II Rusty Delgado Work Phone: [facility] 05-31-2023 15:07-0500 Body height 175.3 cm Janneth Itzkowitz DO Work Phone: [facility] 05-31-2023 15:07-0500 Body mass index (BMI) [Ratio] 32.05 kg/m2 Janneth Itzkowitz DO Work Phone: [facility] 05-31-2023 15:07-0500 Body weight 98.43 kg Janneth Itzkowitz DO Work Phone: [facility] 05-31-2023 15:07-0500 Diastolic blood pressure 72 mm[Hg] Janneth Itzkowitz DO Work Phone: [facility] 05-31-2023 15:07-0500 Systolic blood pressure 120 mm[Hg] Janneth Itzkowitz DO Work Phone: [facility] 05-23-2023 06:44-0500 Body height 175.26 cm II Rusty Delgado Work Phone: [facility] 05-23-2023 06:44-0500 Body weight 99.79 kg II Rusty Delgado Work Phone: [facility] 05-18-2023 14:04-0500 Body height 175.3 cm Janneth Itzkowitz DO Work Phone: [facility] 05-18-2023 14:04-0500 Body mass index (BMI) [Ratio] 32.78 kg/m2 Janneth Itzkowitz DO Work Phone: [facility] 05-18-2023 14:04-0500 Body weight 100.7 kg Janneth Itzkowitz DO Work Phone: [facility] 05-18-2023 14:04-0500 Diastolic blood pressure 74 mm[Hg] Janneth Itzkowitz DO Work Phone: [facility] 05-18-2023 14:04-0500 Systolic blood pressure 120 mm[Hg] Janneth Itzkowitz DO Work Phone: [facility] 04-12-2023 11:00-0500 Body height 175.26 cm Lorna Ortega Other [facility] 04-12-2023 11:00-0500 Body mass index (BMI) [Ratio] 33.22 kg/m2 Lorna Scovanner Other [employer] Other 04-12-2023 11:00-0500 Body weight 102.06 kg Lorna Scovanner Other [employer] Other 04-12-2023 11:00-0500 Body weight 102.05 kg II Rusty Delgado Work Phone: [facility] 04-12-2023 11:00-0500 Diastolic blood pressure 67 mm[Hg] Lorna Scovanner Other [facility] 04-12-2023 11:00-0500 Systolic blood pressure 135 mm[Hg] Lorna Scovanner Other [facility] 11-10-2022 11:00-0400 Body weight 99.79 kg Lorna Scovanner Other [employer] Other 11-10-2022 11:00-0400 Diastolic blood pressure 74 mm[Hg] Lorna Scovanner Other [employer] Other 11-10-2022 11:00-0400 Systolic blood pressure 127 mm[Hg] Lorna Scovanner Other [employer] Other 09-21-2022 08:49-0400 Diastolic blood pressure 78 mm[Hg] II Rusty Delgado Work Phone: [facility] 09-21-2022 08:49-0400 Heart rate 50 /min II Rusty Delgado Work Phone: [facility] 09-21-2022 08:49-0400 SaO2% (BldA) [Mass fraction] 99 % II Rusty Delgado Work Phone: [facility] 09-21-2022 08:49-0400 Systolic blood pressure 125 mm[Hg] II Rusty Delgado Work Phone: [facility] 09-21-2022 07:36-0400 Body height 175.26 cm II Rusty Delgado Work Phone: [facility] 09-21-2022 07:36-0400 Body temperature 98.5 [degF] II Rusty Delgado Work Phone: [facility] 09-21-2022 07:36-0400 Body weight 95.25 kg II Rusty Delgado Work Phone: [facility] 09-21-2022 07:36-0400 Respiratory rate 16 /min II Rusty Delgado Work Phone: [facility] Encounters Encounter Date Encounter Type Care Provider Facility Start: 02-20-2024 Evaluation and management of inpatient DANNI GomezAshley KENT [facility] Start: 02-20-2024 [facility]: 02-19-[facility]24 End: 02-19-2024 ambulatory IRENA [facility] Start: 02-19-2024 End: 02-20-2024 Evaluation and management of inpatient [facility] Start: 02-15-2024 End: 02-15-2024 ambulatory [facility] Start: 02-12-2024 End: 02-12-2024 Clinisync Result Encounter Generic External Data Provider [facility] Unsolicited Start: 02-12-2024 End: 02-12-2024 Clinisync Result Encounter Generic External Data Provider [facility] External Department Unsolicited Start: 01-18-2024 End: 01-18-2024 Bamboo flowsheet Ira Walker DO Work Phone: [facility] Start: 01-18-2024 End: 01-18-2024 Bamboo flowsheet Ira Walker DO Work Phone: [facility] Start: 01-18-2024 End: 01-18-2024 ambulatory IRA WALKER Not Available Start: 01-03-2024 End: 01-03-2024 ambulatory II Rusty Delgado Work Phone: [facility] Work Phone: Start: 01-03-2024 End: 01-03-2024 Departed Referred II Rusty Delgado Work Phone: [facility] Start: 12-27-2023 ambulatory [facility] Start: 12-27-2023 End: 12-27-2023 ambulatory [facility] Start: 12-13-2023 End: 12-13-2023 ambulatory FABY ECHEVARRIA Not Available Start: 12-12-2023 End: 12-12-2023 ambulatory II Rusty Delgado Work Phone: [facility] Work Phone: Start: 12-12-2023 End: 12-12-2023 Departed Referred II Rusty Delgado Work Phone: [facility] Start: 12-08-2023 End: 12-08-2023 ambulatory II Rusty Delgado Work Phone: [facility] Work Phone: Start: 12-08-2023 End: 12-08-2023 Departed Referred II Rusty Delgado Work Phone: [facility] Start: 12-07-2023 Non-patient / Non-visit II Rusty Delgado Work Phone: [facility] Work Phone: Start: 12-07-2023 End: 12-07-2023 ambulatory II Rusty Delgado Work Phone: [facility] Work Phone: Start: 12-07-2023 End: 12-07-2023 Departed Referred II Rusty Delgado Work Phone: [facility] Start: 11-27-2023 End: 11-27-2023 ambulatory [facility] Start: 11-15-2023 End: 11-15-2023 ambulatory RUSTY DELGADO Not Available Start: 11-14-2023 End: 11-14-2023 ambulatory [facility] Start: 11-08-2023 End: 11-08-2023 ambulatory ROSALINO LAMAS Not Available Start: 10-13-2023 ambulatory [facility] Start: 10-13-2023 End: 10-13-2023 ambulatory [facility] Start: 10-09-2023 End: 10-09-2023 ambulatory JANNETH VILLEGAS Not Available Start: 10-03-2023 End: 10-03-2023 ambulatory JUDITH Delgado Work Phone: [facility] Work Phone: Start: 10-03-2023 End: 10-03-2023 Departed Referred II Rusty Delgado Work Phone: [facility] Start: 10-02-2023 End: 10-02-2023 ambulatory LYNDSEY PATEL Not Available Start: 09-25-2023 End: 09-25-2023 ambulatory [facility] Start: 09-15-2023 End: 09-15-2023 ambulatory WARD BENEDICT Not Available Start: 09-05-2023 End: 09-05-2023 ambulatory WARD BENEDICT Not Available Start: 08-30-2023 End: 08-30-2023 ambulatory WARD BENEDICT Not Available Start: 08-22-2023 End: 08-22-2023 ambulatory [facility] Start: 08-07-2023 End: 08-07-2023 ambulatory [facility] Start: 07-18-2023 End: 07-18-2023 ambulatory FABY ECHEVARRIA Not Available Start: 07-12-2023 End: 07-13-2023 ambulatory Janneth Villegas Facility:[facility] Start: 07-12-2023 End: 07-12-2023 Patient encounter procedure Jourdan Ortega ARSALAN [facility] [place] Start: 07-05-2023 End: 07-05-2023 ambulatory II Rusty Delgado Work Phone: [facility] Work Phone: Start: 07-05-2023 End: 07-05-2023 Patient encounter procedure II Rusty Delgado Work Phone: [facility] G[facility] Work Phone: Start: 06-29-2023 End: 06-29-2023 ambulatory JANNETH H ITZKOWITZ Not Available Start: 06-23-2023 ambulatory Janneth Itzkowitz Facil ity:[facility] [place] Start: 06-22-2023 End: 06-22-2023 ambulatory JANNETH H ITZKOWITZ Not Available Start: 06-13-2023 End: 06-13-2023 Admission to same day surgery center II Rusty Delgado Work Phone: [facility] [place] Start: 06-13-2023 End: 06-13-2023 ambulatory Janneth Itzkowitz Facility:[facility] Start: 06-02-2023 End: 06-02-2023 Patient encounter procedure II Rusty Delgado Work Phone: [facility]-Pre-Surgical Testing Work Phone: Start: 06-02-2023 End: 06-02-2023 ambulatory II Rusty Delgado Work Phone: [facility] Work Phone: Start: 05-31-2023 End: 05-31-2023 Office outpatient visit 25 minutes Janneth H Itzkowitz DO Work Phone: [facility] Comment on above: Fissure in ano (Prim chinmay Dx) Start: 05-31-2023 End: 05-31-2023 ambulatory JANNETH H ITZKOWITZ Not Available Start: 05-23-2023 End: 05-23-2023 Admission to same day surgery center II Rusty Delgado Work Phone: [facility]-Digestive Health Work Phone: Start: 05-23-2023 End: 05-23-2023 ambulatory Rusty Delgado Facility:[facility] Start: 05-18-2023 End: 05-18-2023 Office outpatient new 45 minutes Janneth H Itzkowitz DO Work Phone: [facility] Comment on above: Fissure in ano Start: 05-18-2023 End: 05-18-2023 ambulatory JANNETH H ITZKOWITZ Not Available Start: 05-11-2023 End: 05-11-2023 ambulatory Lorna Ortega Other [employer] Other Start: 05-11-2023 Office outpatient visit 15 minutes Lorna Ortega [facility] Start: 04-28-2023 End: 04-28-2023 ambulatory Lorna Ortega Other [employer] Other Start: 04-28-2023 Telephone encounter Lorna Coates [facility] Start: 04-27-2023 End: 04-27-2023 ambulatory Lorna Ortega Other [employer] Other Start: 04-27-2023 Telephone encounter Lorna Coates [facility] Start: 04-26-2023 End: 04-26-2023 Patient encounter procedure II Rusty Delgado Work Phone: [facility] [place] Work Phone: Start: 04-26-2023 End: 04-26-2023 ambulatory Rusty Delgado Facility:[facility] Start: 04-13-2023 End: 04-13-2023 ambulatory Lorna Ortega Other [employer] Other Start: 04-13-2023 Telephone encounter Lorna Coates [facility] Start: 04-12-2023 Office outpatient visit 25 minutes Lorna Ortega [facility] Start: 04-12-2023 Telephone encounter Lorna Coates [facility] Start: 04-12-2023 End: 04-12-2023 Patient encounter procedure II Rusty Delgado Work Phone: [facility]-Lab [facility] [place] Work Phone: Start: 04-12-2023 End: 04-12-2023 ambulatory II Rusty Delgado Work Phone: [employer] Other Start: 04-12-2023 End: 04-12-2023 Patient encounter procedure II Rusty Delgado Work Phone: [facility] Work Phone: Start: 04-03-2023 End: 04-03-2023 ambulatory Lorna Ortega Other [employer] Other Start: 04-03-2023 Telephone encounter Lorna Coates [facility] Start: 03-30-2023 End: 03-30-2023 ambulatory RUSTY DELGADO Not Available Start: 03-24-2023 End: 03-24-2023 ambulatory RUSTY DELGADO Not Available Start: 03-24-2023 End: 03-24-2023 ambulatory RUSTY DELGADO Not Available Start: 11-18-2022 End: 11-18-2022 ambulatory Lorna Ortega Other [employer] Other Start: 11-18-2022 Telephone encounter Lorna Coates [facility] Start: 11-15-2022 End: 11-15-2022 ambulatory II Rusty Delgado Work Phone: [facility] Work Phone: Start: 11-15-2022 End: 11-15-2022 Patient encounter procedure II Rusty Delgado Work Phone: [facility]-Ultrasound [facility] [place] Work Phone: Start: 11-10-2022 End: 11-10-2022 ambulatory Lorna Ortega Other [facility] [employer] Other Start: 11-10-2022 Office outpatient visit 15 minutes Lorna Ortega [facility] Gastroenterology Start: 11-03-2022 End: 11-03-2022 Patient encounter procedure II Rusty Delgado Work Phone: [facility] C[facility]-Digestive [facility] Work Phone: Start: 10-26-2022 End: 10-26-2022 ambulatory II Rusty Delgado Work Phone: [facility] Work Phone: Start: 10-26-2022 End: 10-26-2022 Departed Referred II Rusty Delgado Work Phone: [facility]-Dig[facility] Work Phone: Start: 10-26-2022 End: 10-26-2022 Patient encounter procedure II Rusty Delgado Work Phone: [facility]-Dig[facility]ive [facility] Work Phone: Start: 09-21-2022 End: 09-21-2022 Admission to same day surgery center II Rusty Delgado Work Phone: [facility]-Dig[facility]ive [facility] Work Phone: Start: 09-21-2022 End: 09-21-2022 ambulatory II Rusty Delgado Work Phone: [facility] Work Phone: Start: 02-13-2017 End: 02-13-2017 Ambulatory TANISHA [facility] adamaris Start: 01-04-2017 End: 01-04-2017 Ambulatory TANISHA TAYLOR [facility] Start: 12-10-2016 End: 12-10-2016 Ambulatory COY BLANCHARD [facility] Start: 11-01-2016 End: 11-02-2016 Ambulatory ROYCE ARAIZA [facility] Start: 10-17-2016 End: 10-17-2016 Ambulatory TANISHA VAZQUEZ [facility] Procedures Date Procedure Procedure Detail Performing Clinician Start: 02-12-2024 ALL CBC WITH AUTO DIFF Generic External Data Provider Start: 01-18-2024 Oph bmtry prtl coher intrfrmtry io lens pwr karla Ira Walker DO Work Phone: Start: 01-18-2024 End: 01-18-2024 Ophth medical xm&eval compre new pt 1/> vst [...] Screening for malign ant neoplasm of colon [facility] Start: 08-07-2029 Screening for malign ant neoplasm of colon [facility] Start: 01-17-2026 Glaucoma screening Diabetes: R etinopathy Screening [facility] Start: 12-26-2024 Urine screening for protein Diabetes: Urine Protein Screening [facility] Start: 10-12-2024 Urine screening for protein Diabetes: Urine Protein Screening [facility] Start: 05-26-2024 Urine screening for protein Diabetes: Urine Protein Screening [facility] Start: 05-24-2024 Glaucoma screening Diabetes: R etinopathy Screening [facility] Start: 05-16-2024 End: 05-16-2024 Patient encounter procedure 05/16/2024 11:00 AM EST Office Visit [facility] [address] [facility] [address] [place] [address] Rusty Delgado MD [address] [place] [address] [facility] Start: 02-22-2024 End: 02-22-2024 Patient encounter procedure 02/22/2024 9:00 AM EST Procedure Visit [facility] Ira Walker DO [address] [place] [address] [facility] Start: 02-15-2024 Hemoglobin A1c measurement Diabetes: Hemoglobin A1C [facility] Start: 02-08-2024 End: 02-08-2024 Patient encounter procedure 02/08/2024 8:15 AM EDT Procedure Visit [facility] Ira Walker DO [address] [place] [address] [facility] Start: 01-18-2024 End: 01-18-2024 Patient encounter procedure 01/18/2024 1:30 PM EDT Office Visit [facility] [address] [place] [address] Ira Walker DO [address] [place] [address] Arrived [facility] Comment on above: Arrived Start: 12-17-2023 Influenza vaccination Influenza Vacc ine (#1) [facility] Start: 08-24-2023 Hemoglobin A1c measurement Diabetes: Hemoglobin A1C [facility] Start: 06-13-2023 [facility] Start: 06-13-2023 [facility] Start: 06-13-2023 End: 06-13-2023 Patient encounter procedure 06/13/2023 1:30 PM EST Procedure Visit [facility] Bakari Janneth Rouse, DO [address] [place] [address] [facility] Start: 06-09-2023 End: 06-09-2023 Patient encounter procedure 06/09/2023 10:30 AM EST [facility] [address] [place] [address] Janneth Villegas, DO [address] [place] [address] [facility] [address] [facility] Start: 05-26-2023 Medicare Annual Well ness (AWV) Medicare Annual Wellness (AWV) [facility] Start: 05-23-2023 [facility] Start: 02-23-2023 Hemoglobin A1c measurement Diabetes: Hemoglobin A1C [facility] Start: 11-03-2022 [facility] Start: 11-03-2022 Ultrasound elastogra phy of liver [facility] (Not Applicable) [facility] Start: 10-26-2022 Ultrasound elastogra phy of liver [facility] [employer] (Not Applicable) [facility] Start: 10-26-2022 [facility] Start: 09-21-2022 Hepatitis B core ant ibody measurement [facility] Start: 09-21-2022 End: 09-21-2022 [facility] Start: 1972 Urine screening for protein Diabetes: Urine Protein Screening [facility] Start: 08-03-1959 Pneumococcal Vaccine : 65+ Years (1 - PCV) Pneumococcal Vaccine: 65+ Years (1 - PCV) [facility] Start: 08-03-1959 Pneumococcal Vaccine : 65+ Years (1 of 2 - PCV) Pneumococcal Vaccine: 65+ Years (1 of 2 - PCV) [facility] Start: 1955 Medicare Annual Well ness (AWV) Medicare Annual Wellness (AWV) [facility] Start: 1955 Screening for malign ant neoplasm of colon [facility] Actin smooth muscle IgG Ab [Units/volume] in Serum [facility] Alpha 1 antitrypsin [Mass/volume] in Serum or Plasma [facility] Alpha 1 antitrypsin phenotyping [Identifier] in Serum or Plasma by Immunofixation [facility] Cefuroxime free [Mass/volume] in Serum or Plasma [facility] Ceruloplasmin [Mass/volume] in Serum or Plasma [facility] Hepatitis B virus galindo rface Ab [Presence] in Serum [facility] Hepatitis B virus galindo rface Ag [Presence] in Serum or Plasma by Immunoassay [facility] Hepatitis C virus Ig G Ab [Presence] in Serum or Plasma by Immunoassay [facility] Mitochondria M2 IgG Ab [Units/volume] in Serum [facility] Patient referral [facility] Work Phone: Immunizations Immunization Date Immunization Notes Care Provider [facility] 01-24-2023 influenza virus vaccine, unspecified formulation Jourdan ARRIAZA [facility] 01-24-2023 Influenza, Seasonal, Quadrivalent, Adjuvanted Ira Zaceciliaer DO Work Phone: [facility] 04-30-2022 zoster vaccine recombinant Janneth Itzkowitz DO Work Phone: [facility] 03-22-2022 tetanus toxoid, reduced diphtheria toxoid, and acellular pertussis vaccine, adsorbed Janneth Itzkowitz DO Work Phone: [facility] 02-01-2022 influenza virus vaccine, unspecified formulation Jourdan ARRIAZA [facility] 02-01-2022 influenza, high dose seasonal, preservative-free Janneth Itzkowitz DO Work Phone: [facility] 02-17-2021 influenza virus vaccine, unspecified formulation Jourdan ARRIAZA [facility] 02-17-2021 influenza, high dose seasonal, preservative-free Janneth Itzkowitz DO Work Phone: [facility] 02-13-2017 influenza virus vaccine, unspecified formulation Jourdan [employer] [facility] 02-13-2017 influenza, injectabl e, quadrivalent, contains preservative Janneth Itzkowitz DO Work Phone: [facility] 02-01-2016 influenza virus vaccine, unspecified formulation [employer]dan [employer] [facility] 02-01-2016 influenza, seasonal, injectable Janneth Itzkowitz DO Work Phone: [facility] 03-24-2015 zoster vaccine, live Janneth Itzkowitz DO Work Phone: [facility] 02-10-2015 influenza virus vaccine, unspecified formulation Jourdan ARRIAZA [facility] 02-10-2015 influenza, seasonal, injectable Janneth Itzkowitz DO Work Phone: [facility] 01-14-2014 influenza virus vaccine, unspecified formulation Jourdan ARRIAZA [facility] 01-14-2014 influenza, seasonal, injectable Janneth Itzkowitz DO Work Phone: [facility] 01-23-2013 influenza virus vaccine, unspecified formulation Janneth Itzkowitz DO Work Phone: [facility] Payers Date Payer Category Payer Self-pay 2022 Medicaid [employer] MEDICARE A DVANTAGE [id number] 2022 Medicare [employer] MEDICARE A DVANTAGE AETNA MEDICARE REPLACEMENT [id number] 2022-Present [address] [place] [id number] [id number] 2002 Private Health Insurance [id number] 1953 Unknown [id number] 2.16.840.1.257495.3.579.2. 727 1953 Unknown [id number] 2.16.840.1.595292.3.579.2. 1258 1953 Unknown [id number] 2.16.840.1.911149.3.579.2. 1258 1953 Unknown [id number] 2.16.840.1.406549.3.579.2. 1258 1953 Unknown [id number] 2.16.840.1.613942.3.579.2. 1258 1953 Unknown [id number] 2.16.840.1.082915.3.579.2. 125 1953 Unknown [id number] 2.16.840.1.777274.3.579.2. 1258 1953 Unknown [id number] 2.16.840.1.349766.3.579.2. 1259 1953 Unknown [id number] 2.16.840.1.042216.3.579.2. 1258 1953 Unknown [id number] 2.16.840.1.046353.3.579.2. 1259 1953 Unknown [id number] 2.16.840.1.708809.3.579.2. 1258 1953 Unknown [id number] 2.16.840.1.428551.3.579.2. 1258 1953 Unknown [id number] 2.16.840.1.459937.3.579.2. 1258 1953 Unknown [id number] 2.16.840.1.944000.3.579.2. 1258 1953 Unknown [id number] 2..840.1.003839.3.579.2. 1258 1953 Unknown [id number] 2..840.1.674185.3.579.2. 1258 1953 Unknown [id number] 2.840.1.340344.3.579.2. 1258 1953 Unknown [id number] 2.16.840.1.985947.3.579.2. 1259 Unknown [id number] 2.16.840.1.037715.3.579.2. 531 Unknown [id number] 2.16.840.1.626396.3.579.2. 531 Unknown [id number] 2.16.840.1.847839.3.579.2. 531 Unknown [id number] 2.16.840.1.419722.3.579.2. 531 Unknown [id number] 2.16.840.1.743838.3.579.2. 531 Unknown [id number] 2.16.840.1.355454.3.579.2. 531 Unknown [id number] 2.16.840.1.533119.3.579.2. 531 Unknown [id number] 2.16.840.1.160496.3.579.2. 531 Unknown [id number] 2.16.840.1.552468.3.579.2. 531 Social History Date Type Detail Facility Start: 09-21-2022 End: 11-08-2023 Tobacco smoking status NHIS Ex-smoker (finding) [facility] Start: 1955 Sex Assigned At Male [facility] Start: 05-18-2023 End: 12-12-2023 Sex Assigned At [facility] End: 04-17-1989 History of tobacco use [...] Smokin g Status Entered [facility] [place] Start: 12-13-2023 End: 01-18-2024 Alcoholic beverage intake Current drinker of alcohol (finding) [facility] Start: 12-12-2023 How often do you need to have someone help you when you read instructions, pamphlets, or other written material from your doctor or pharmacy [SILS] Rarely [facility] Do you belong to any clubs or organizations such as synagogue groups, unions, fraternal or athletic groups, or [...] Desired Activity /State Clinical Notes 09-21-2022 to 02-20-2024 Ira Walker, DO - 01/18/2024 1:30 PM EDTFredbarb Villegas, DO - 05/31/2023 3:15 PM ESTFredric Padma Villegas, DO - 05/18/2023 2:00 PM EST Note Date & Type Note Facility 02-20-2024 Note Hospital Medicine Discharge Summary Final Discharge Diagnosis: Decompensated alcoholic liver cirrhosis Recurrent ascites with multiple paracentesis in past Large esophageal varices without high risk stigmata Coagulopathy secondary to decompensated liver cirrhosis Right-sided pleural effusion s/p thoracentesis 2 cm hepatic lesion in hepatic dome concerning for HCC seen on recent CT abdomen and pelvis Essential hypertension Recinos's esophagus Internal and external hemorrhoids Admission Diagnosis: Pleural effusion [J90] Hospital course: Charles Blandon is a 68 y.o. male with a past medical history of decompensated alcoholic cirrhosis, ascites with recurrent paracentesis, diabetes mellitus, Recinos's esophagus, dyspnea. he came for outpatient EGD for variceal screening. His last EGD was on 11/27/2023 with 2 columns of nonbleeding large esophageal varices that did not flatten with air insufflation. Today anesthesia wanted to have the pleural effsion drained before the EGD could be done. This effusion was known on the last pulm visit. Pulmonology was consulted. 1500 mL straw-colored fluid removed by thoracentesis, fluid studies consistent with transudative effusion. EGD was performed which showed large esophageal varices without high risk stigmata, small sliding hiatal hernia, moderate portal hypertensive gastropathy, no evidence of gastric varices. Patient was discharged in stable condition. Patient is advised close follow-up with gastroenterology on discharge for hepatic lesion seen on recent CT and for decompensated liver cirrhosis. Surgical, Invasive or Diagnostic Procedures Done During Admission: EGD and thoracentesis Consultations During Admission: Gastroenterology and Pulmonary Dear Dr. Danny MD, Charles is advised to follow up with you within 1-2 weeks. Items to follow up in ambulatory setting: None Follow-up with: Gastroenterology Scheduled appointments: Future Appointments Date Time Provider Department Center 03/08/2024 2:00 PM Irena Johnson MD [facility] Your medication list CHANGE how you take these medications Instructions Last Dose Given Next Dose Due lansoprazole [address] capsule Commonly known as: Prevacid What changed: how much to take how to take this when to take this TAKE 1 CAPSULE BEFORE A MEAL TWICE DAILY FOR 30 DAYS CONTINUE taking these medications Instructions Last Dose Given Next Dose Due calcium carbonate-vitamin D3 500 mg-3.125 mcg (125 unit) tablet tablet carvedilol 3.125 mg tablet Commonly known as: Coreg Take 1 tablet (3.125 mg) by mouth with breakfast and with evening meal. dicyclomine 20 mg tablet Commonly known as: Bentyl furosemide 20 mg tablet Commonly known as: Lasix Take 3 tablets (60 mg) by mouth two times daily. lactulose 10 gram/15 mL solution Commonly known as: Chronulac Take 15 mL (10 g) by mouth in the morning. magnesium oxide 400 mg tablet Commonly known as: Mag-Ox multivitamin tablet ofloxacin 0.3 % ophthalmic solution Commonly known as: Ocuflox prednisoLONE acetate 1 % ophthalmic suspension Commonly known as: Pred-Forte rifAXIMin 550 mg tablet Commonly known as: Xifaxan Take 1 tablet (550 mg) by mouth two times daily. spironolactone 50 mg tablet Commonly known as: Aldactone Take 3 tablets (150 mg) by mouth in the morning. STOP taking these medications doxycycline 100 mg tablet Commonly known as: Vibra-Tabs famotidine 40 mg tablet Commonly known as: Pepcid ketorolac 0.5 % ophthalmic solution Commonly known as: Acular lisinopril 20 mg tablet triamterene-hydroCHLOROthiazide 37.5-25 mg capsule Commonly known as: Dyazide Charles has No Known Allergies. Disposition: Home or Self Care () Discharge Condition: Good Code Status: Full Code Diagnostic Results Hematology: Results from last 7 days Lab Units 02/20/24 0814 02/20/24 0533 WBC AUTO 10*3/uL 4.26 -- HEMOGLOBIN g/dL 11.5* -- HEMATOCRIT % 33.6* -- MCV fL 99.4* -- PLATELETS AUTO 10*3/uL 119* -- INR -- 1.35* Chemistry: Results from last 7 days Lab Units 02/20/24 0800 SODIUM mmol/L 134* POTASSIUM mmol/L 4.3 CHLORIDE mmol/L 105 CO2 mmol/L 25 BUN mg/dL 20 CREATININE mg/dL 1.09 GLUCOSE mg/dL 103* CALCIUM mg/dL 8.4* Results from last 7 days Lab Units 02/20/24 0800 AST U/L 35 ALT U/L 20 ALK PHOS U/L 89 BILIRUBIN TOTAL mg/dL 1.5* Test Results Pending At Discharge: Pending Labs Order Current Status Body fluid cell count with differential In process Fungal culture In process Non-supervisor printing shop cytology - fluid exam In process PH PLEURAL FLUID, RESPIRATORY In process Pathology Review In process AFB culture Preliminary result Body fluid cell differential Preliminary result Body fluid culture Preliminary result Diet at the time of discharge: regular diet and low-sodium diet Nutrition Screen Activity: Patient currently has no discharge activity orders Objective Blood p (more content not included)... [facility] 02-20-2024 Note 02/20/24 1518 Admission Assessment Questions Verify insurance with patient Yes Do you understand medical disease or what brought you into the hospital? Yes Who is your current PCP? Rusty Delgado Can I schedule a follow up appointment for you at the time of discharge? Yes Do you understand why you are taking your current medications? Yes Are you taking your medications as prescribed? Yes Did patient provide teach back? No Pharmacy Bedside Delivery Status Interested Does the patient have a case preparer and liner assigned to them through their insurance? No Living Arrangement (Current/Prior to Hospitalization) Home self care (From home with ) Does the patient have history of HHC or SNF? No Assistive Device Not applicable Patient's goal for discharge Plan is to discharge home Was patient reminded that goal for discharge is 11am? Yes Does the patient have transportation at discharge? Yes Type of Residence Private residence Is PT/OT appropriate? No Is PT/OT ordered? No Is SW consult appropriate? No Is SW consult ordered? No Do you understand the benefits of MyChart? Yes Were you able to send link and activate MyChart? No [facility] 02-20-2024 Note Patient: Charles hernandez Procedure Summary Date: 02/20/24 Room / Location: [facility] Endoscopy Anesthesia Start: 1315 Anesthesia Stop: 1340 Procedure: EGD Diagnosis: Esophageal varices without bleeding, unspecified esophageal varices type (CMS/HCC) Scheduled Providers: Danni Kent MD; VALDEMAR Garrido; Emmanuel Sheehan MD Responsible Provider: Danni Kent MD Anesthesia Type: MAC ASA Status: 3 Anesthesia Type: MAC Vitals Value Taken Time BP 83/57 02/20/24 1339 Temp 36.3 ???C (97.3 ???F) 02/20/24 1339 Pulse 57 02/20/24 1339 Resp 18 02/20/24 1339 SpO2 97 % 02/20/24 1339 Anesthesia Post Evaluation Patient location during evaluation: PACU Patient participation: complete - patient participated Level of consciousness: awake Pain score: 1 Pain management: adequate Airway patency: patent Cardiovascular status: acceptable Respiratory status: acceptable Patient is hemodynamically stable and is able to be discharged from PACU per anesthesia protocol. No notable events documented. [facility] 02-20-2024 Note Hospital Medicine Daily Progress Note - 02/20/2024 1:46 PM; Room: OR/- Admission: 02/19/2024 4:29 PM; Length of stay: 1 days THE HOSPITALIST TEAM PREFERS TO USE [employer] CHAT FOR NON-URGENT COMMUNICATION 7AM-7PM. IF I DO NOT RESPOND WITHIN 20 MINUTES OR URGENT MATTERS, PLEASE CALL THROUGH THE DEVELOPMENT MGR. FROM 7PM-7AM, PLEASE PAGE [phone](COVR). Code Status: Full Code Barriers to Discharge: EGD today Expected Discharge Date: 02/21/2024 Discharge Destination: home Overview Patient is seen for evaluation and management of . Subjective Patient was seen and examined at bedside this morning. He was alert awake and oriented. He continues to have dyspnea, stated he has been having dyspnea since his liver cirrhosis was diagnosed, patient does not use any oxygen at home. Physical Exam Visit Vitals BP 83/57 Pulse 57 Temp 36.3 ???C (97.3 ???F) (Temporal) Resp 18 Intake/Output Summary (Last 24 hours) at 02/20/2024 1346 Last data filed at 02/20/2024 1333 Gross per 24 hour Intake 486 ml Output 1 ml Net 485 ml Physical Exam Constitutional: Appearance: Normal appearance. Cardiovascular: Rate and Rhythm: Normal rate and regular rhythm. Pulses: Normal pulses. Heart sounds: Normal heart sounds. Pulmonary: Effort: Pulmonary effort is normal. Comments: Diminished breath sounds on right side Abdominal: General: Bowel sounds are normal. There is distension. Palpations: Abdomen is soft. Comments: Abdominal distention due to ascites Ventral hernia Musculoskeletal: General: Normal range of motion. Skin: General: Skin is warm. Neurological: General: No focal deficit present. Mental Status: He is alert and oriented to person, place, and time. Mental status is at baseline. Estimated body mass index is 26.58 kg/m??? as calculated from the following: Height as of this encounter: 1.753 m (5' 9 ). Weight as of this encounter: 81.6 kg (179 lb 15.7 oz). Active Inpatient Problems Active Problems: There are no active Hospital Problems. Assessment and Plan Decompensated liver cirrhosis Alcoholic liver cirrhosis Recurrent ascites with multiple paracentesis in the past 2 columns of nonbleeding, large esophageal varices on EGD 11/27/2023 Coagulopathy secondary to decompensated liver cirrhosis Continue carvedilol, Lasix, Aldactone, rifaximin, lactulose Low-sodium diet EGD today with GI. 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 Follow-up on fluid studies. 2 cm hepatic lesion in hepatic dome concerning for HCC seen on CT abdomen and pelvis MRI abdomen pending from outpatient, follow-up with GI outpatient Essential hypertension Continue carvedilol Recinos's esophagus Continue Protonix Internal and external hemorrhoids VTE Prophylaxis: Contraindicated due to thrombocytopenia Scheduled Meds [MAR Hold] carvedilol, 3.125 mg, oral, Nightly [JUN Hold] famotidine, 40 mg, oral, BID [MAR Hold] furosemide, 60 mg, oral, Nightly [Jun] lactulose, 10 g, oral, Daily [Jun] pantoprazole, 40 mg, oral, Daily [Jun] prednisoLONE acetate, 1 drop, Both Eyes, TID [Jun] rifAXIMin, 550 mg, oral, BID [Jun] spironolactone, 150 mg, oral, Daily lactated Ringer's, 30 mL/hr, Last Rate: Stopped (02/19/240) Pertinent Investigations Hematology: Results from last 7 days Lab Units 02/20/24 0814 02/20/24 0533 WBC AUTO 10*3/uL 4.26 -- HEMOGLOBIN g/dL 11.5* -- HEMATOCRIT % 33.6* -- MCV fL 99.4* -- PLATELETS AUTO 10*3/uL 119* -- INR -- 1.35* Chemistry: Results from last 7 days Lab Units 02/20/24 0800 SODIUM mmol/L 134* POTASSIUM mmol/L 4.3 CHLORIDE mmol/L 105 CO2 mmol/L 25 BUN mg/dL 20 CREATININE mg/dL 1.09 GLUCOSE mg/dL 103* CALCIUM mg/dL 8.4* Results from last 7 days Lab Units 02/20/24 0800 AST U/L 35 ALT U/L 20 ALK PHOS U/L 89 BILIRUBIN TOTAL mg/dL 1.5* Historical Values: (Includes values prior to this admission) No results found for: PREALBUMIN , TSH , T3FREE , FREET4 , CORTISOL , FEV1 , AUF1KWQ , DLCO , RVSP , HDL , LDL No results found for: [id number] , IRON , TIBC , C3 , C4 , LEE ANN , CANCA , ASO , PSA , CEA , CA125 , CA199 , AFP , CA153 Imaging EGD Esophagogastroduodenoscopy (EGD) Procedure Note Procedure: EGD Indications: 68 y.o. male with a history of decompemnsated cirrhosis presenting for EGD for variceal screening. He had an EGD on 11/27/2023 that demonstrated two columns (more content not included)... [facility] 02-20-2024 Note Hospital Medicine Daily Progress Note - 02/20/2024 1:34 PM; Room: OR/- Admission: 02/19/2024 4:29 PM; Length of stay: 1 days THE HOSPITALIST TEAM PREFERS TO USE [employer] app FOR NON-URGENT COMMUNICATION 7AM-7PM. IF I DO NOT RESPOND WITHIN 20 MINUTES OR URGENT MATTERS, PLEASE CALL THROUGH THE DEVELOPMENT MGR. FROM 7PM-7AM, PLEASE PAGE [phone](COVR). Code Status: Full Code Barriers to Discharge: EGD today Expected Discharge Date: 02/21/2024 Discharge Destination: home Overview Patient is seen for evaluation and management of . Subjective Patient was seen and examined at bedside this morning. He was alert awake and oriented. He continues to have dyspnea, stated he has been having dyspnea since his liver cirrhosis was diagnosed, patient does not use any oxygen at home. Physical Exam Visit Vitals BP 109/71 Pulse 54 Temp 35.3 ???C (95.5 ???F) (Temporal) Resp 18 Intake/Output Summary (Last 24 hours) at 02/20/2024 1334 Last data filed at 02/20/2024 1333 Gross per 24 hour Intake 486 ml Output 1 ml Net 485 ml Physical Exam Constitutional: Appearance: Normal appearance. Cardiovascular: Rate and Rhythm: Normal rate and regular rhythm. Pulses: Normal pulses. Heart sounds: Normal heart sounds. Pulmonary: Effort: Pulmonary effort is normal. Comments: Diminished breath sounds on right side Abdominal: General: Bowel sounds are normal. There is distension. Palpations: Abdomen is soft. Comments: Abdominal distention due to ascites Ventral hernia Musculoskeletal: General: Normal range of motion. Skin: General: Skin is warm. Neurological: General: No focal deficit present. Mental Status: He is alert and oriented to person, place, and time. Mental status is at baseline. Estimated body mass index is 26.58 kg/m??? as calculated from the following: Height as of this encounter: 1.753 m (5' 9 ). Weight as of this encounter: 81.6 kg (179 lb 15.7 oz). Active Inpatient Problems Active Problems: There are no active Hospital Problems. Assessment and Plan Decompensated liver cirrhosis Alcoholic liver cirrhosis Recurrent ascites with multiple paracentesis in the past 2 columns of nonbleeding, large esophageal varices on EGD 11/27/2023 Continue carvedilol, Lasix, Aldactone, rifaximin, lactulose Low-sodium diet EGD today with GI. 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 Status post thoracentesis with 1500 mL straw-colored fluid removal by pulmonary 2 cm hepatic lesion in hepatic dome concerning for HCC seen on CT abdomen and pelvis MRI abdomen pending from outpatient, follow-up with GI outpatient Essential hypertension Continue carvedilol Recinos's esophagus Continue Protonix Internal and external hemorrhoids VTE Prophylaxis: Contraindicated due to thrombocytopenia Scheduled Meds [JUN Hold] carvedilol, 3.125 mg, oral, Nightly [JUN Hold] famotidine, 40 mg, oral, BID fentaNYL, , , [JUN Hold] furosemide, 60 mg, oral, Nightly [JUN Hold] lactulose, 10 g, oral, Daily [JUN Hold] pantoprazole, 40 mg, oral, Daily [JUN Hold] prednisoLONE acetate, 1 drop, Both Eyes, TID [JUN Hold] rifAXIMin, 550 mg, oral, BID [JUN Hold] spironolactone, 150 mg, oral, Daily lactated Ringer's, 30 mL/hr, Last Rate: Stopped (02/19/242129) Pertinent Investigations Hematology: Results from last 7 days Lab Units 02/20/24 0814 02/20/24 0533 WBC AUTO 10*3/uL 4.26 -- HEMOGLOBIN g/dL 11.5* -- HEMATOCRIT % 33.6* -- MCV fL 99.4* -- PLATELETS AUTO 10*3/uL 119* -- INR -- 1.35* Chemistry: Results from last 7 days Lab Units 02/20/24 0800 SODIUM mmol/L 134* POTASSIUM mmol/L 4.3 CHLORIDE mmol/L 105 CO2 mmol/L 25 BUN mg/dL 20 CREATININE mg/dL 1.09 GLUCOSE mg/dL 103* CALCIUM mg/dL 8.4* Results from last 7 days Lab Units 02/20/24 0800 AST U/L 35 ALT U/L 20 ALK PHOS U/L 89 BILIRUBIN TOTAL mg/dL 1.5* Historical Values: (Includes values prior to this admission) No results found for: PREALBUMIN , TSH , T3FREE , FREET4 , CORTISOL , FEV1 , KFH9JRQ , DLCO , RVSP , HDL , LDL No results found for: [id number] , IRON , TIBC , C3 , C4 , LEE ANN , CANCA , ASO , PSA , CEA , CA125 , CA199 , AFP , CA153 Imaging XR chest 1 view Narrative: HISTORY: A 68-year-old male with the history of the right-sided thoracentesis. Postprocedure of examination. EXAM/TECHNIQUE: Chest: Portable upright AP view in expiration COMPARISON: Comparison is made with the chest radiograph of the 02/19/2024. FINDINGS: There is a recent righ (more content not included)... [facility] 02-20-2024 Note Patient: Charles hernandez Procedure Information Date/Time: 11/27/23 1130 Scheduled providers: Irena Johnson MD; Danni Kent MD; VALDEMAR Heath Procedure: EGD Location: [facility] [place] Relevant Problems Cardio (+) Aortic root dilatation (CMS/HCC) (+) Benign essential hypertension (+) Essential hypertension (+) Grade II hemorrhoids (+) HTN (hypertension) (+) Secondary esophageal varices without bleeding (CMS/HCC) (+) Ventricular premature beats Endo (+) Controlled type 2 diabetes mellitus without complication, without long-term current use of insulin (CMS/HCC) GI (+) GERD (gastroesophageal reflux disease) (+) Gastroesophageal reflux disease /Renal (+) Alcoholic cirrhosis of liver with ascites (CMS/HCC) (+) Cirrhosis (CMS/HCC) (+) Fatty liver Pulmonary (+) QUESADA (dyspnea on exertion) Clinical information reviewed: Physical Exam Airway Mallampati: II TM distance: >3 FB Neck ROM: full Cardiovascular - normal exam Dental - normal exam Pulmonary (+) decreased breath sounds Abdominal Anesthesia Plan ASA 3 MAC (Large pleural effusion. Underwent thoracentesis, portal hypertension, large ascites.) The patient is not a current smoker. Patient was not previously instructed to abstain from smoking on day of procedure. Patient did not smoke on day of procedure. intravenous induction Anesthetic plan and risks discussed with patient. Plan discussed with CAA. Additional Equipment Requests Physical Exam Airway Mallampati: II TM distance: >3 FB Neck ROM: full Cardiovascular - normal exam Dental - normal exam Pulmonary (+) decreased breath sounds Abdominal [facility] 02-19-2024 Note Hospital Medicine History and Physical 02/19/2024 3:19 PM THE HOSPITALIST TEAM PREFERS TO USE [employer] app FOR COMMUNICATION 7AM-7PM. IF I DO NOT RESPOND WITHIN 15 MINUTES, PLEASE PAGE ME/CALL THROUGH THE DEVELOPMENT MGR. FROM 7PM-7AM, PLEASE PAGE [phone](COVR). Chief Complaint EGD variceal screening History of Present Illness Charles Blandon is a 68 y.o. male with a past medical history of decompensated alcoholic cirrhosis, ascites with recurrent paracentesis, diabetes mellitus, Recinos's esophagus, dyspnea. he came for outpatient EGD for variceal screening. His last EGD was on 11/27/2023 with 2 columns of nonbleeding large esophageal varices that did not flatten with air insufflation. Today anesthesia wanted to have the pleural effsion drained before the EGD could be done. This effusion was known on the last pulm visist. He is getting admitted for the above reasons. Seen in endo suite. No n/v/d/c. No resp issues. Past Medical History Past Medical History: Diagnosis Date Abnormal weight loss Alcohol use disorder Ascites Barretts esophagus Basal cell carcinoma of skin Basal cell carcinoma of skin Cirrhosis (CMS/HCC) Colon polyp Diabetes mellitus (CMS/HCC) Esophageal dysmotility Esophageal varices (CMS/HCC) Family history of colonic polyps Fatty liver GERD (gastroesophageal reflux disease) Hypertension Incisional hernia Memory loss Metabolic syndrome Metabolic syndrome X Osteoporosis Pleural effusion Thrombocytopenia (CMS/HCC) Ventricular premature beats Past Surgical History Past Surgical History: Procedure Laterality Date CHOLECYSTECTOMY COLONOSCOPY ELBOW SURGERY Right TORN MUSCLE UPPER GASTROINTESTINAL ENDOSCOPY Social History Social History Socioeconomic History Marital status: Spouse name: Not on file Number of children: Not on file Years of education: Not on file Highest education level: Not on file Occupational History Not on file Tobacco Use Smoking status: Former Types: Cigarettes Quit date: 04/17/1994 Years since quittin.8 Smokeless tobacco: Never Vaping Use Vaping Use: Never used Substance and Sexual Activity Alcohol use: Not Currently Comment: LAST DRINK 09/2023 Drug use: Never Sexual activity: Not Currently Partners: Female control/protection: Male Sterilization Other Topics Concern Not on file Social History Narrative Not on file Social Determinants of Health Financial Resource Strain: Not on file Food Insecurity: Not on file Transportation Needs: Not on file Physical Activity: Not on file Stress: Not on file Social Connections: Not on file Intimate Partner Violence: Not At Risk (02/15/2024) Humiliation, Afraid, Rape, and Kick questionnaire Fear of Current or Ex-Partner: No Emotionally Abused: No Physically Abused: No Sexually Abused: No Housing Stability: Not on file Family History family history is not on file. Allergies has No Known Allergies. Prior to Admission Medications (Not in a hospital admission) Review of System 12 Point ROS was obtained and is negative except for the pertinent negatives And positives in the HPI OBJECTIVE: Vitals 24 Hours ([Min - Max] (Last Recorded Value)) GENERAL: The patient is well developed and nontoxic. Sittng in bed. No apparent distress. VITAL SIGNS: Reviewed in the EMR. HEENT: Nonicteric sclerae, EOMI. Oropharynx clear. Moist mucous membranes. Conjunctivae appear well perfused. HEART: Regular rate and rhythm without murmurs. LUNGS: Clear to auscultation bilaterally. No wheezing and crackles. ABDOMEN: distended, soft, hernia present. No tenderness. SKIN: No rash, no excessive bruising, petechiae, or purpura. NEUROLOGIC: Cranial nerves II-XII intact without motor/sensory deficit. MSK: Muscle wasting absent. Normal joint range, no tenderness swelling. No lower extremity edema. Labs Labs Reviewed CBC COMPREHENSIVE METABOLIC PANEL PROTIME-INR MAGNESIUM PHOSPHORUS Imaging XR chest 1 view Narrative: CHEST 1 VIEW HISTORY: Right-sided pleural effusion COMPARISON: MRI abdomen 11/14/2023 Impression: *Large right pleural effusion with adjacent compressive atelectasis. *Left lung is clear. Electronically signed: Devyn Brand MD. Assessment Active Problems: There are no active Hospital Problems. Liver cirrhosis, decompensated Recurrent ascites with multiple paracentesis in the past Esophageal varices Right-sided pleural effusion, thora in the past at [facility] Dyspnea 2cm Hepatic lesion in the hepatic dome concerning for HCC seen on CT abdomen pelvis Last drink October 11 as per GIs note Recinos's esophagus internal and external hemorrhoids Plan - Admit to medicine service on MedSurg unit. - Telemetry, vitals per unit protocol, continuous pulse ox, Q4 I&O's - consult pulmonology, GI - Thora in the morning followed by EGD. -Resume home medications once med rec is (more content not included)... [facility] 02-15-2024 Note Attestation signed by Linette Jaquez MD at 02/16/2024 1:16 PM I have seen and examined the patient. I reviewed the resident/fellow note and I agree with the findings and plan. Linette Jaquez MD Interventional Pulmonary Medicine Pulmonary and Critical Care Medicine [facility] Visit Note Patient: Charles Blandon Age: 68 y.o. : 1955 Account No.: [id number] Referring physician: Dr. Irena Johnson Chief complaint: Dyspnea HPI Charles Blandon is a 68 y.o. male with PMHx of Decompensated alcoholic cirrhosis, Ascites with recurrent paracentesis, DM, Recinos's Esophagus who is presenting to Pulmonary clinic as a new patient for dyspnea and possible thoracentesis. Patient has extensive history of cirrhosis for which she follows Dr. Irena Johnson. He has been struggling with recurrent ascites and has undergone multiple paracenteses over the past many weeks. He has been experiencing dyspnea both at rest and on exertion over the past 6 months as well. He was found to have a large right-sided pleural effusion for which he underwent thoracentesis by Dr. Winter at [facility]. He reports that his dyspnea was only relieved for 1 day at that point and he continued to be symptomatic as the fluid reaccumulated. He is accompanied by his today and they are concerned that he is feeling very dyspneic and that anesthesia might not clear him for a endoscopy for variceal surveillance scheduled for next week Monday February 19, 2024. The patient denies having any other pulmonary issues and has never been diagnosed with COPD or asthma. He is not on any inhalers or nebulizers. He is a former smoker who quit 35 years ago. He smoked for approximately 20 years, 2 packs/day. No PFTs on file CT abdomen 09/25/2023: Bilateral pleural effusions, right larger on right and moderate on the left. Otherwise clear lungs. Cirrhotic liver and ascites Past Medical History: Diagnosis Date Abnormal weight loss Alcohol use disorder Ascites Barretts esophagus Basal cell carcinoma of skin Basal cell carcinoma of skin Cirrhosis (CMS/HCC) Colon polyp Diabetes mellitus (CMS/HCC) Esophageal dysmotility Esophageal varices (CMS/HCC) Family history of colonic polyps Fatty liver GERD (gastroesophageal reflux disease) Hypertension Incisional hernia Memory loss Metabolic syndrome Metabolic syndrome X Osteoporosis Pleural effusion Thrombocytopenia (CMS/HCC) Ventricular premature beats Past Surgical History: Procedure Laterality Date CHOLECYSTECTOMY COLONOSCOPY ELBOW SURGERY Right TORN MUSCLE UPPER GASTROINTESTINAL ENDOSCOPY Allergies: Patient has no known allergies. Prior to Admission medications Medication Sig Start Date End Date Taking? Authorizing Provider calcium carbonate-vitamin D3 500 mg-3.125 mcg (125 unit) tablet tablet 1 tablet. 06/02/23 Yes Historical Provider, carvedilol (Coreg) 3.125 mg tablet Take 1 tablet (3.125 mg) by mouth with breakfast and with evening meal. Patient taking differently: Take 3.125 mg by mouth at bedtime. 12/27/23 04/25/24 Yes Marito Oquendo MD famotidine (Pepcid) 40 mg tablet Take 1 tablet (40 mg) by mouth in the morning. Patient taking differently: Take 40 mg by mouth two times daily. 11/08/23 11/07/24 Yes Arias Jesus MD furosemide (Lasix) 20 mg tablet Take 3 tablets (60 mg) by mouth two times daily. Patient taking differently: Take 60 mg by mouth in the morning. 12/27/23 Yes Marito Oquendo MD ketorolac (Acular) 0.5 % ophthalmic solution Administer 1 drop into affected eye(s) twice a day. 01/18/24 02/17/24 Yes Historical Provider, lactulose 10 gram/15 mL solution Take 15 mL (10 g) by mouth in the morning. 01/16/24 05/15/24 Yes Gibson Hazel MD lansoprazole (Prevacid) [address] capsule TAKE [...] mouth in the morning. Yes Historical Provider, ofloxacin (Ocuflox) 0.3 % ophthalmic solution PLEASE SEE ATTACHED FOR DETAILED DIRECTIONS 01/18/24 Yes Historical Provider, prednisoLONE acetate (Pred-Forte) 1 % ophthalmic suspension INSTILL 1 DROP INTO BOTH EYES IN THE MORNING, NOON, EVENING, AND BEFORE BEDTIME FOR 14 DAYS 01/18/24 Yes Historical Provider, rifAXIMin (Xifaxan) 550 mg tablet Take 1 tablet (550 mg) by mouth two times daily. 12/27/23 Yes Marito Oquendo MD spironolactone (Aldactone) 50 mg tablet Take 3 tablets (150 mg) by mouth in the morning. 12/27/23 Yes Marito Oquendo MD (more content not included)... [facility] 01-18-2024 History of Present illness Narrative Images [...] different lens options were explained including the [id number] fees for any upgrades. Intraocular lens (IOL) [...] OD - . documented in this encounter [facility] 12-29-2023 Note Attestation signed by Irena Johnson MD at 01/01/2024 8:49 AM I discussed the findings and therapeutic plan with the fellow. I agree with the documentation, except for any edits/updates below. I called and spoke with the patient and his , Fabiana. I confirmed with them that they should use Lasix 60 mg once daily as previously instructed, and they acknowledged this. [facility] 12-27-2023 Note Attestation signed by Irena [...] were changed during his recent hospitalization at [facility], therefore, will repeat labs Will change to [...] documentation in this note for specific details. [facility] Gastroenterology Follow-up visit CHIEF [...] patient was recently hospitalized at [facility] for worsening ascites and shortness of breath. She reports that patient has fluid removed via thoracentesis and paracentesis. He has not undergone paracentesis since his hospital stay. She reports that d (more content not included)... [facility] 11-27-2023 Note Patient: Charles hernandez Procedure Summary Date: 11/27/23 Room / Location: [facility] Anesthesia Start: 1040 Anesthesia Stop: 1106 Procedure: EGD Diagnosis: Alcoholic cirrhosis of liver with ascites (CMS/HCC) Scheduled Providers: Irena Johnson MD; Danni Kent MD; VALDEMAR Heath Responsible Provider: Danni Kent MD Anesthesia Type: MAC ASA Status: [...] per anesthesia protocol. No notable events documented. [facility] 11-27-2023 Note Patient: Charles hernandez Procedure Summary Date: 11/27/23 Room / Location: [facility] Anesthesia Start: 1040 Anesthesia Stop: Procedure: EGD Diagnosis: Alcoholic cirrhosis of liver with ascites (CMS/HCC) Scheduled Providers: Irena Johnson MD; Danni Kent MD; VALDEMAR Heath Responsible Provider: Danni Kent MD Anesthesia Type: MAC ASA Status: 3 Anesthesia Post [facility] Patient Monitor: direct observation Transport: uneventful Patient condition is: stable [facility] 11-27-2023 Note Patient: Charles hernandez Procedure Information Date/Time: 11/27/23 1130 Scheduled providers: Irena Johnson MD; Danni Kent MD; VALDEMAR Heath Procedure: EGD Location: [facility] Invasive Surgery [place] Relevant Problems Cardio Denies chest pain/SOB (+) [...] risks discussed with patient. Plan discussed with VALDEMAR. Additional Equipment Requests [facility] 11-08-2023 Note Refills provided [facility] 10-16-2023 Note Called patient to ve rify if he is still taking he said he is in hospital and having a few procedures done. Follow up later this week he won't know if he is still taking until after discharge tomorrow. Misha Voss [facility] 02/19/24 4:31 PM [facility] 10-16-2023 Note Patient due for Calderon adkins Pap renewal. Darnell Razo [facility] 02/19/24 8:39 AM [facility] 10-16-2023 Note Patient said the del george has been scheduled and is on its way. Aware they have to call [facility] every time they need a refill. Have no further questions. Will no longer follow up. Darnell Razo, [facility] 10/25/23 10:27 AM [facility] 10-16-2023 Note Emma MALDONADO approved through 04/10/2024, previous approval. Pt has not been on lactulose, prescribed lactulose on the same day as Xifaxan. Based on discussion with annual income for 2 people in the household is $52,000. Should qualify for PAP. Will email provider and pt portions. Carmella Jane, PharmD, BCACP 10/16/23 1:56 PM [facility] [phone] [facility] 10-16-2023 Note Patient assistance a pplication approved through [employer]. Approval good through 04/16/2024. Patient Case ID/Approval Number: [id number]. Notified patient and will follow up to confirm shipment/delivery is scheduled. Yamini Camarillo, [facility] 10/23/23 10:11 AM [facility] 10-16-2023 Note Have received pt. Po rtion of PAP form still waiting on prescribers portion. Re faxed the forms over to GI. Send PAP forms in once prescribers portion is signed. Darnell Razo, [facility] 10/20/23 1:20 PM [facility] 10-13-2023 Note I called and discuss ed the results of his labwork with the patient. With his sodium level being slightly below baseline, we will have him repeat his labs prior to EGD tomorrow. He expressed clear understanding. If he continues to have low sodium, we may need to consider holding diuretics. [facility] 10-13-2023 Note Attestation signed by Irena [...] documentation in this note for specific details. [facility] Gastroenterology Follow-up visit CHIEF [...] function of stomach (more content not included)... [facility] 09-14-[address] ordered to rule o ut chronic mesenteric ischemia [facility] 08-07-2023 Note Attestation signed by Arias Jesus MD at 08/07/2023 2:45 PM I personally saw the patient with the fellow, I performed/participated in the critical/david portions of the service, I was directly involved in the management and treatment plan of the patient. I discussed the case management with the fellow and agree with the findings and plan as documented by the fellow. [facility] Gastroenterology New Patient Visit [...] % gel, Apply topically., Disp: , Rfl: sfkfoujoz-qpwvqo-cjoqfa-petrol 5-0.25-14.4-15 % cream, APPLY TO AFFECTED AREA [...] has been scheduled. documented in this encounter [facility] 05-18-2023 History of Present illness Narrative Images from the original note were not included. Charles Blandon 1955 Charles Blandon is a 67 y.o. male presents with chief complaint of painful hemorrhoid HPI: HPI Huber states he has a hemorrhoid for the last 5-6 weeks. He was seen by Dr. Carroll's MAINTENANCE SUPERVISOR who referred him to our office. [...] weeks for recheck documented in this encounter [facility] 05-11-2023 Evaluation note Encounter Date Diagnosis Assessment Notes Apr, Nausea (ICD-10 - R11.0) Apr, Cirrhosis of liver (ICD-10 - K74.60) Apr, Early satiety (ICD-10 - R68.81) [facility] 12-28-2023 Evaluation note* Encounter Date Diagnosis Assessment Notes Treatment Notes Treatment Clinical Notes Mar, Lower abdominal pain (ICD-10 - R10.30) [facility] 12-27-2023 Evaluation note* Encounter Date Diagnosis [...] - R68.81) Mar, Bloating (ICD-10 - R14.0) [facility] 07-27-2023 Evaluation note* Encounter Date Diagnosis [...] a time. Pt advised to start probiotic (Jostle) Pt RTO 3 MONTHS [facility] 06-07-2023 [facility] note No data available for this section [facility] Evaluation noteNo assessment information available [facility] Work Phone: Evaluation noteNo InformationNort [employer] Other Evaluation note* Diagnosis Fissure in ano Anal fissure [facility] Diagnosis Fissure in ano- Primary Anal fissure documented [facility] this [facility]* Diagnosis Onset Date Resolution Status Cirrhosis acute Dyspepsia and disorder of function of stomach acute Emesis acute Esophageal dysmotility acute [facility] Work Phone: Evaluation note* Diagnosis Age-related nuclear cataract of both eyes- Primary documented in this encounter [facility] Author Lex Carroll [facility] September 21, 2022 8:04am Note Date/Time September 21, 2022 8:04a m [facility] [address] [place] [address] Gastroenterology H&P Signed Patient: Charles Blandon MR#: [id number] : 1955 Acct:[id number] Age/Sex: 67 / M Adm Date: 3 [...] Carroll MD Documented By: Lex Carroll MD 09/21/22802 Signed By: <Electronically signed by Lex Carroll MD> 09/21/22 0804 [facility] Work Phone: History general Narrative - Reported* Type Description Date Medical History hypertension Medical History GERD Surgical History gallbladder Surgical History elbow surgery Surgical History mesh placement [facility] Other Hospital Discharge instructions Additional Instructions DISCHARGE [...] problems. -Follow up with PCP. -Office number [phone].[facility] Work Phone: Hospital Discharge instructions No data available for this section [facility] Progress note No data available for this section [facility] Summary Purpose Family History No Family [...] DATE CREATED AUTHOR 10/10/2017 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 Relationship Specialty Start Date End Date Rusty Delgado MD [address] [facility] [address] [place] [address] PCP - [employer] 04/17/22 Rusty Delgado MD [address] [facility] [address] [place] [address] PCP - General Internal Medicine 11/23/22 Automobile Racer Relationship Specialty Start Date End Date Rusty Delgado MD [address] [facility] [address] [place] [address] PCP - [employer] 04/17/22 Rusty Delgado MD [address] [place] [address] [place] [address] PCP - General Internal Medicine 11/23/22 Team [...] January 03, 2024 End: January 03, 2024 Automobile Racer Relationship Specialty Start Date End Date Rusty Delgado MD [address] [facility] [address] [place] [address] PCP - [employer] 04/17/22 Rusty Delgado MD [address] [facility] [address] [place] [address] PCP - General Internal Medicine 11/23/22 Automobile Racer Relationship Specialty Start Date End Date Rusty Delgado MD [address] [place] [address] [place] [address] PCP - [employer] 04/17/22 Rusty Delgado MD [address] [facility] [address] [place] [address] PCP - General Internal Medicine 11/23/22 Automobile Racer Relationship Specialty Start Date End Date Rusty Delgado MD [address] [facility] [address] [place] [address] PCP - [employer] 04/17/22 Rusty Delgado MD [address] [facility] [address] [place] [address] PCP - General Internal Medicine 11/23/22 REASON FOR VISIT (unrecogniz ed section and content) Reason Comments painful hemorrhoid Specialty Diagnoses / Procedures Referred By Contac t Referred To Contact General Surgery Diagnoses Unspecified hemorrhoids Procedures MT OFFICE/OUTPATIENT NEW HIGH MDM 60 MINUTES Lorna Ortega MD [address] [facility] [address] [place] [address] [facility] [address] [facility] [address] [place] [address] Referral ID Status Reason Start Date Expiration Date V isits Requested Visits Authorized [id number] Closed Specialty Services Required 05/12/2023 11/08/2023 1 [...] BE BASED ON THE PRIMARY CLINICAL RECORDS. [employer] provides no warranty or guarantee of the accuracy or completeness of information in this document.
[2024-02-22] MEDS: DIAZEPAM 5 MG TABLET PO (09:25)
[2024-02-22] MEDS: PHENYLEPHRINE HCL 2.5% OP SOL 40 DROP/2 ML BOTTLE OP ×4 (09:25→09:57)
[2024-02-22] MEDS: TROPICAMIDE 1% OP SOL 300 DROP/15 ML BOTTLE OP ×4 (09:25→09:57)
[2024-02-22] MEDS: CYCLOPENTOLATE HCL 1% OP SOL 40 DROP/2 ML BOTTLE OP ×4 (09:25→09:57)
[2024-02-22] MEDS: OFLOXACIN 0.3% OP SOL 100 DROP/5 ML BOTTLE OP ×4 (09:26→09:57)
[2024-02-22 09:28] VITALS: BP 101/71; PULSE 52; TEMP 36.2; O2SAT 100
[2024-02-22] MEDS: PROPARACAINE HCL 0.5% 300 DROP/15 ML BOTTLE OP (11:00)
[2024-02-22] MEDS: LIDOCAINE 2% JELLY 10 ML TOPICAL (11:00)
[2024-02-22] MEDS: BETADINE POVIDONE-IODINE 5% OP SOL 30 ML BOTTLE OP (11:00)
[2024-02-22 11:05] VITALS: BP 111/73; BP 114/68; PULSE 54; PULSE 58; O2SAT 98; O2SAT 99
[2024-02-22] MEDS: PHENYLEPHRINE/KETOROLAC 1-0.3% ML VIAL 4 ML IRR (11:08)
[2024-02-22] MEDS: LIDOCAINE HCL 1% PF 20 MG/2 ML VIAL INJ (11:08)
[2024-02-22] MEDS: TETRACAINE HCL 0.5% OP SOL 80 DROP/4 ML BOTTLE OP (11:09)
[2024-02-22] MEDS: HYALURONATE SODIUM 16 MG/ML SYRINGE OP (11:09)
[2024-02-22] MEDS: CEFUROXIME SODIUM 750 MG, 0.9 % SODIUM CHLORIDE 16.3 ML OP (11:09)
[2024-02-22] MEDS: APRACLONIDINE HCL 0.5% SOL 100 DROP/5 ML BOTTLE OP (11:14)
[2024-02-22] MEDS: PREDNISOLONE ACETATE OP 1% SUSP 100 DROPS/5 ML 1 DROP OP (11:14)
== END 2024-02-22 11:35 | disposition home or self-care (01) ==
LOC: SURGOUT 09:04
PROVIDERS: PCP Internal Medicine; Visit Provider Ophthalmology
PROC: (CPT 66984; principal; 2024-02-22 10:10)
DX: H25.11 Age-related nuclear cataract, right eye (principal)
CPT/HCPCS: 66984; J0697; V2630

== ENCOUNTER 2024-03-11 12:27 | Day surgery (SDC) | payer MEDICARE, SELFPAY ==
[2024-03-11] VITALS (7 sets, daily range): BP systolic 104–126; BP diastolic 73–82; PULSE 55; O2SAT 97
--- NOTE | 2024-03-11 12:38 | US_ITS ---
[address] [address] Patient Name: LOYD BLANDON MRN: [id number] date: 1955 Sex: M Assigned Patient Location: Current Patient Location: Accession/Order Number: [id number] Exam Date: 03/11/2024 12:48 Report Date: 03/12/2024 06:44 At the request of: NON-STAFF PHYSICIAN Procedure: US paracentesis abd w/image EXAMINATION: US paracentesis abd w/image HISTORY: alcoholic cirrhosis of liver with ascites COMPARISON: No relevant comparison available. DESCRIPTION: Informed consent was obtained. The patient was prepped and draped in standard sterile fashion. Ultrasound-guided paracentesis was performed in the usual sterile manner using 1% Xylocaine. FINDINGS: SITE: Left lower quadrant NEEDLE: Paracentesis 8 Fr. catheter over 18 gauge needle MEDICATION: 1% buffered Xylocaine for local anesthesia FLUID DESCRIPTION: Slightly opaque yellowish fluid. FLUID VOLUME: 6.1 L COMPLICATIONS: None LABORATORY: None (therapeutic) OTHER: Negative. US/US paracentesis abd w/image IMPRESSION: 1. Successful ultrasound-guided paracentesis with removal of 6.1 L of slightly opaque yellowish fluid. Electronically authenticated by: WARD FERRER Date: 03/12/2024 06:44
[2024-03-11] MEDS: LIDOCAINE HCL 10 ML, SODIUM BICARBONATE 1 MEQ INJ (13:05)
--- NOTE | 2024-03-11 14:24 | SUR.PREOP ---
03/11/24 Spoke with this morning to schedule appt for pt.
--- NOTE | 2024-03-11 14:34 | PC.NURSE ---
[address] with clear bright yellow fluid removed. Pt tolerated well with small amount of pain. 1340 Total of 6.1 liters removed. Pt assisted up to bathroom to void.
--- NOTE | 2024-03-11 14:36 | PC.NURSE ---
1355 Offered pt wheelchair to exit hospital but pt declined. Pt exited with .
== END 2024-03-11 13:55 | disposition home or self-care (01) ==
LOC: US 12:28
PROVIDERS: Radiology Diagnostic Radiology; PCP Internal Medicine
DX: K70.31 Alcoholic cirrhosis of liver with ascites (principal)
CPT/HCPCS: 49083

== ENCOUNTER 2024-04-03 07:26 | Day surgery (SDC) | payer MEDICARE, SELFPAY ==
--- NOTE | 2024-04-03 07:29 | US_ITS ---
[address] [address] Patient Name: LOYD BLANDON MRN: [id number] date: 1955 Sex: M Assigned Patient Location: US Current Patient Location: Accession/Order Number: [id number] Exam Date: 04/03/2024 07:30 Report Date: 04/03/2024 11:05 At the request of: NON-STAFF PHYSICIAN Procedure: US paracentesis abd w/image EXAMINATION: US paracentesis abd w/image HISTORY: Alcoholic cirrhosis of live with ascites COMPARISON: Ultrasound paracentesis 01/24/2024 DESCRIPTION: Informed consent was obtained. The patient was prepped and draped in standard sterile fashion. Ultrasound-guided paracentesis was performed in the usual sterile manner using 1% Xylocaine. FINDINGS: SITE: Right lower quadrant NEEDLE: Paracentesis 8 Fr. catheter over 18 gauge needle MEDICATION: 1% buffered Xylocaine for local anesthesia FLUID DESCRIPTION: Yellowish, slightly opaque FLUID VOLUME: 6.25 L COMPLICATIONS: None LABORATORY: None (therapeutic) OTHER: Negative. US/US paracentesis abd w/image IMPRESSION: 1. Successful removal of 6.25 L of fluid. Electronically authenticated by: WARD FERRER Date: 04/03/2024 11:05
[2024-04-03] MEDS: LIDOCAINE HCL 10 ML, SODIUM BICARBONATE 1 MEQ INJ (07:55)
--- NOTE | 2024-04-03 13:48 | PC.NURSE ---
V.S. 0734: 103/75, HR 50, Resp. 22, Sao2+97% 0750: 107/69, HR 45, 98% 0802: 102/72, HR47, 98% 0812: 95/65, HR46, 97% 0815: 96/65, HR48, 98% 0822: 91/68, HR46, 97% 0827: 95/70, HR47, 98% 0840: 101/70, HR46, 97% Total Fluid Evacuated: 6.25 Liters (6,250cc)
== END 2024-04-03 13:58 | disposition home or self-care (01) ==
LOC: US 07:26
PROVIDERS: Radiology Diagnostic Radiology; PCP Internal Medicine
DX: K70.31 Alcoholic cirrhosis of liver with ascites (principal)
CPT/HCPCS: 49083

== ENCOUNTER 2024-05-09 13:14 | Outpatient (OUT) | payer MEDICARE, SELFPAY ==
[2024-05-09 14:00] LABS: Basophils Absolute Auto 0.1 10^3/uL (0.0-0.1); Basophils Percent Auto 1.1 % (0.2-2.0); Eosinophils Absolute Auto 0.3 10^3/uL (0.0-0.7); Eosinophils Percent Auto 5.4 % (0.9-7.0); Hematocrit 37.2 % (42.0-54.0); Hemoglobin 12.7 g/dL (14.0-18.0); Immature Granulocytes Abs Auto 0.04 10^3/uL (0.00-0.03); Immature Granulocytes Pct Auto 0.8 % (0.0-0.5); Lymphocytes Absolute Auto 0.7 10^3/uL (1.2-3.8); Lymphocytes Percent Auto 12.5 % (20.5-60.0); Mean Corpuscular HGB Conc 34.1 g/dL (29.9-35.2); Mean Corpuscular Hemoglobin 34.4 pg (25.9-34.0); Mean Corpuscular Volume 100.8 fL (80.0-94.0); Mean Platelet Volume 10.5 fL (9.5-13.5); Monocytes Absolute Auto 0.8 10^3/uL (0.3-0.8); Monocytes Percent Auto 14.8 % (1.7-12.0); Neutrophils Absolute Auto 3.4 10^3/uL (1.4-6.5); Neutrophils Percent Auto 65.4 % (43.0-75.0); Platelet Count 167 10^3/uL (150-450); Red Blood Count 3.69 10^6/uL (4.70-6.10); Red Cell Distribution Width 14.2 % (11.0-15.0); White Blood Count 5.2 10^3/uL (4.0-11.0)
[2024-05-09 14:59] LABS: INR 1.15
== END 2024-05-09 13:15 | disposition home or self-care (01) ==
LOC: LAB 13:14
PROVIDERS: PCP Internal Medicine
DX: K76.9 Liver disease, unspecified (principal); J91.8 Pleural effusion in other conditions classified elsewhere; R06.02 Shortness of breath; K70.31 Alcoholic cirrhosis of liver with ascites; K76.0 Fatty (change of) liver, not elsewhere classified; K76.82 Hepatic encephalopathy
CPT/HCPCS: 36415; 80053; 85025; 85610

== ENCOUNTER 2024-05-09 13:42 | Outpatient (OUT) | payer MEDICARE, SELFPAY ==
[2024-05-09 14:13] LABS: Alanine Aminotransferase 30 U/L (16-63); Albumin Globulin Ratio 0.6; Albumin Level 2.6 g/dL (3.4-5.0); Alkaline Phosphatase 110 U/L (46-116); Anion Gap 10.6; Aspartate Amino Transferase 46 U/L (15-37); Bilirubin Total 1.4 mg/dL (0.2-1.0); Calcium 8.7 mg/dL (8.5-10.1); Carbon Dioxide 29.1 mmol/L (21.0-32.0); Chloride 98 mmol/L (98-107); Estimated GFR (African America 54 (>=60 mL/min/1.73m^2); Estimated GFR (Non-African Ame 44 (>=60 mL/min/1.73m^2); Globulin 4.5 g/dL; Glucose 168 mg/dL (74-106); Potassium 4.7 mmol/L (3.5-5.1); Sodium 133 mmol/L (136-145); Total Protein 7.1 g/dL (6.4-8.2)
== END 2024-05-09 13:43 | disposition home or self-care (01) ==
LOC: LAB 13:44
PROVIDERS: PCP Internal Medicine
DX: K76.82 Hepatic encephalopathy (principal); K76.9 Liver disease, unspecified; J91.8 Pleural effusion in other conditions classified elsewhere; R06.02 Shortness of breath; K70.31 Alcoholic cirrhosis of liver with ascites
CPT/HCPCS: 36415; 80053; 85025; 85610

== ENCOUNTER 2024-06-07 11:06 | Outpatient (OUT) | payer MEDICARE, SELFPAY ==
[2024-06-07 11:53] LABS: Alanine Aminotransferase 34 U/L (16-63); Albumin Globulin Ratio 0.5; Albumin Level 2.3 g/dL (3.4-5.0); Alkaline Phosphatase 128 U/L (46-116); Anion Gap 11.1; Aspartate Amino Transferase 50 U/L (15-37); BUN Creatinine Ratio 14.9; Bilirubin Total 1.4 mg/dL (0.2-1.0); Calcium 8.7 mg/dL (8.5-10.1); Chloride 97 mmol/L (98-107); Estimated GFR (African America 47 (>=60 mL/min/1.73m^2); Estimated GFR (Non-African Ame 39 (>=60 mL/min/1.73m^2); Globulin 4.7 g/dL; Glucose 245 mg/dL (74-106); Potassium 5.1 mmol/L (3.5-5.1); Sodium 128 mmol/L (136-145)
== END 2024-06-07 11:07 | disposition home or self-care (01) ==
PROVIDERS: PCP Internal Medicine
DX: Z76.82 Awaiting organ transplant status (principal)
CPT/HCPCS: 36415; 80053

== ENCOUNTER 2024-06-14 13:37 | Outpatient (OUT) | payer MEDICARE, SELFPAY ==
[2024-06-14 15:17] LABS: Anion Gap 11.6; Calcium 8.7 mg/dL (8.5-10.1); Carbon Dioxide 26.6 mmol/L (21.0-32.0); Chloride 98 mmol/L (98-107); Estimated GFR (African America 55 (>=60 mL/min/1.73m^2); Estimated GFR (Non-African Ame 45 (>=60 mL/min/1.73m^2); Glucose 197 mg/dL (74-106); Potassium 4.2 mmol/L (3.5-5.1); Sodium 132 mmol/L (136-145)
[2024-06-14 16:32] LABS: Alanine Aminotransferase 31 U/L (16-63); Albumin Level 2.3 g/dL (3.4-5.0); Alkaline Phosphatase 129 U/L (46-116); Aspartate Amino Transferase 47 U/L (15-37); Bilirubin Total 1.4 mg/dL (0.2-1.0); Total Protein 6.6 g/dL (6.4-8.2)
== END 2024-06-14 13:38 | disposition home or self-care (01) ==
LOC: LAB 13:38
PROVIDERS: PCP Internal Medicine
DX: Z76.82 Awaiting organ transplant status (principal)
CPT/HCPCS: 36415; 80048; 82042; 82247; 84075; 84155; 84450; 84460; 85007; 85027; 85610

== ENCOUNTER 2024-06-21 11:23 | Outpatient (RCR) | payer MEDICARE, SELFPAY ==
[2024-06-21 12:05] LABS: Alanine Aminotransferase 35 U/L (16-63); Albumin Globulin Ratio 0.5; Albumin Level 2.2 g/dL (3.4-5.0); Alkaline Phosphatase 136 U/L (46-116); Anion Gap 9.3; Aspartate Amino Transferase 48 U/L (15-37); BUN Creatinine Ratio 13.5; Bilirubin Total 1.2 mg/dL (0.2-1.0); Calcium 8.7 mg/dL (8.5-10.1); Carbon Dioxide 28.5 mmol/L (21.0-32.0); Chloride 97 mmol/L (98-107); Estimated GFR (African America 48 (>=60 mL/min/1.73m^2); Estimated GFR (Non-African Ame 40 (>=60 mL/min/1.73m^2); Globulin 4.8 g/dL; Glucose 193 mg/dL (74-106); Potassium 4.8 mmol/L (3.5-5.1); Sodium 130 mmol/L (136-145)
[2024-06-28 15:14] LABS: Alanine Aminotransferase 29 U/L (16-63); Albumin Globulin Ratio 0.5; Albumin Level 2.3 g/dL (3.4-5.0); Alkaline Phosphatase 128 U/L (46-116); Anion Gap 10.1; Aspartate Amino Transferase 45 U/L (15-37); BUN Creatinine Ratio 13.1; Bilirubin Total 1.4 mg/dL (0.2-1.0); Calcium 8.8 mg/dL (8.5-10.1); Carbon Dioxide 28.8 mmol/L (21.0-32.0); Chloride 99 mmol/L (98-107); Estimated GFR (African America 41 (>=60 mL/min/1.73m^2); Estimated GFR (Non-African Ame 33 (>=60 mL/min/1.73m^2); Globulin 4.4 g/dL; Glucose 134 mg/dL (74-106); Potassium 4.9 mmol/L (3.5-5.1); Sodium 133 mmol/L (136-145); Total Protein 6.7 g/dL (6.4-8.2)
[2024-07-02 13:22] LABS: Alanine Aminotransferase 33 U/L (16-63); Albumin Globulin Ratio 0.5; Albumin Level 2.2 g/dL (3.4-5.0); Alkaline Phosphatase 127 U/L (46-116); Anion Gap 8.8; Aspartate Amino Transferase 42 U/L (15-37); BUN Creatinine Ratio 15.2; Bilirubin Total 1.2 mg/dL (0.2-1.0); Calcium 8.3 mg/dL (8.5-10.1); Carbon Dioxide 28.5 mmol/L (21.0-32.0); Chloride 98 mmol/L (98-107); Estimated GFR (African America 50 (>=60 mL/min/1.73m^2); Estimated GFR (Non-African Ame 41 (>=60 mL/min/1.73m^2); Globulin 4.6 g/dL; Glucose 185 mg/dL (74-106); Potassium 4.3 mmol/L (3.5-5.1); Sodium 131 mmol/L (136-145); Total Protein 6.8 g/dL (6.4-8.2)
[2024-07-13 10:46] LABS: Alanine Aminotransferase 32 U/L (16-63); Albumin Globulin Ratio 0.6; Albumin Level 2.5 g/dL (3.4-5.0); Alkaline Phosphatase 125 U/L (46-116); Anion Gap 12.3; Aspartate Amino Transferase 46 U/L (15-37); BUN Creatinine Ratio 15.9; Bilirubin Total 1.9 mg/dL (0.2-1.0); Calcium 8.7 mg/dL (8.5-10.1); Carbon Dioxide 25.5 mmol/L (21.0-32.0); Chloride 100 mmol/L (98-107); Estimated GFR (African America 58 (>=60 mL/min/1.73m^2); Estimated GFR (Non-African Ame 48 (>=60 mL/min/1.73m^2); Globulin 4.3 g/dL; Glucose 102 mg/dL (74-106); Potassium 4.8 mmol/L (3.5-5.1); Sodium 133 mmol/L (136-145); Total Protein 6.8 g/dL (6.4-8.2)
== END 2024-07-15 13:05 | disposition home or self-care (01) ==
LOC: LAB 11:23
PROVIDERS: PCP Internal Medicine
DX: Z76.82 Awaiting organ transplant status (principal)
CPT/HCPCS: 36415; 80053

== ENCOUNTER 2024-07-31 10:50 | Outpatient (RCR) | payer MEDICARE, SELFPAY ==
[2024-07-31 11:50] LABS: Alanine Aminotransferase 35 U/L (16-63); Albumin Globulin Ratio 0.6; Albumin Level 2.6 g/dL (3.4-5.0); Alkaline Phosphatase 143 U/L (46-116); Anion Gap 12.3; Aspartate Amino Transferase 56 U/L (15-37); BUN Creatinine Ratio 11.9; Bilirubin Total 1.4 mg/dL (0.2-1.0); Carbon Dioxide 27.7 mmol/L (21.0-32.0); Chloride 97 mmol/L (98-107); Estimated GFR (African America 42 (>=60 mL/min/1.73m^2); Estimated GFR (Non-African Ame 35 (>=60 mL/min/1.73m^2); Globulin 4.7 g/dL; Glucose 164 mg/dL (74-106); Sodium 132 mmol/L (136-145); Total Protein 7.3 g/dL (6.4-8.2)
[2024-08-05 13:50] LABS: Alanine Aminotransferase 31 U/L (16-63); Albumin Globulin Ratio 0.5; Albumin Level 2.4 g/dL (3.4-5.0); Alkaline Phosphatase 149 U/L (46-116); Anion Gap 13.3; Aspartate Amino Transferase 54 U/L (15-37); BUN Creatinine Ratio 12.8; Bilirubin Total 1.5 mg/dL (0.2-1.0); Calcium 8.4 mg/dL (8.5-10.1); Carbon Dioxide 24.5 mmol/L (21.0-32.0); Chloride 97 mmol/L (98-107); Estimated GFR (African America >60 (>=60 mL/min/1.73m^2); Estimated GFR (Non-African Ame 53 (>=60 mL/min/1.73m^2); Globulin 4.4 g/dL; Glucose 225 mg/dL (74-106); Potassium 4.8 mmol/L (3.5-5.1); Sodium 130 mmol/L (136-145); Total Protein 6.8 g/dL (6.4-8.2)
== END 2024-08-14 09:54 | disposition home or self-care (01) ==
LOC: LAB 10:50
PROVIDERS: PCP Internal Medicine
DX: K74.60 Unspecified cirrhosis of liver (principal)
CPT/HCPCS: 36415; 80053

== ENCOUNTER 2024-11-19 02:10 | Inpatient (IN) | payer MEDICARE, SELFPAY ==
--- OUTSIDE RECORDS SUMMARY | 2024-04-22 09:41 | XMS_ITS ---
Author Organization [facility] in [place] Address [address] [place] [address] Care Team Providers Care Maintenance Carpenter Name Role Phone Rusty Delgado MD Primary Care Provider UnavailDevyn Vaz Unavailable [phone] REASON FOR VISIT Oxygen Encounters Encounter Location Date Provider Diagnosis Pulmonary Medicine [place] [address] [place] [address] 04/22/2024 Devyn Winter Plan Of Treatment No Information Progress Notes * Charles BLANDON JrDOB:[birth year] (68 yo M)Acc No.[id number]:04/22/2024 Patient: Serena LUISMACARENACharles Park Jr :1955 A ge:68 Y S ex:Male Address:[facility] [place], [address] * true * Date: Generated for Angeli ng/Fachynag/eTransmitting on: 0 11/19/2024 02:26 AM EDT
--- OUTSIDE RECORDS SUMMARY | 2024-07-08 05:00 | XMS_ITS ---
Author Organization [facility] in [place] Address [address] [place] [address] Care Team Providers Care Clothes Drier Assembler Name Role Phone Rusty Delgado MD Primary Care Provider UnavailDevyn Vaz Unavailable [phone] REASON FOR VISIT Appointment Cancel Encounters Encounter Location Date Provider Diagnosis Pulmonary Medicine [place] [address] [place] [address] 07/08/2024 Devyn Winter Plan Of Treatment No Information Progress Notes * Charles BLANDON JrDOB:[birth year] (68 yo M)Acc No.[id number]:07/08/2024 Patient: Serena Charles WILL Jr :1955 A ge:68 Y S ex:Male Address:[facility] [place] [address], [address] * true * Date: Generated for Printi ng/Faxing/eTransmitting on: 0 11/19/2024 02:24 AM EDT
--- OUTSIDE RECORDS SUMMARY | 2024-07-09 06:30 | XMS_ITS ---
Author Organization [facility] in [place] Address [address] [place] [address] Care Team Providers Care Classroom Aide Name Role Phone Danny OLIVAS, Rusty Primary Care Provider Unavailab Devyn Ramsey Unavailable [phone] REASON FOR VISIT [facility]. Encounters Encounter Location Date Provider Diagnosis Pulmonary Medicine [place] [address] [place] [address] 07/09/2024 Devyn Winter Plan Of Treatment No Information Progress Notes * Charles BLANDON JrDOB:[birth year] (69 yo M)Acc No.[id number]:07/09/2024 UNLOCKED PROGRESS NOTE Follow Up Patient: Serena WILL Charles Traore Jr Provider: Brenda Winter DO :1955 A ge:68 Y S ex:Male Date:07/09/2024 [address] [facility] [facility] Pcp:Rusty Delgado MD Subjective: * Chief Complaints: * 1 . [facility].. * Medical History: Objective: * Vitals: Assessment: Plan: * Treatment: * * Electronic signature of Mervat Winter DO on 11/19/2024 at 02:24 AM EDT Sign off status: Pending Visit Status: C ANC (Cancelled) * Provider: Brenda Winter DO Date: 0 07/09/2024 Generated for Denise neil/Tracy/Noitting on: 0 11/19/2024 02:24 AM EDT
--- OUTSIDE RECORDS SUMMARY | 2024-10-30 19:01 | XMS_ITS | Encounter Summary ---
Author Organization [facility] Address [address] [place] [address] Care Team Providers Care Doors Prefitter Name Role Phone Rusty Delgado Primary Care Provider [phone] Reason for Referral * Home Health (Routine) Specialty Diagnoses / Procedures Referred By Rogelio mann Referred To Contact Pediatric Plastic Surgery / Home Health Services Diagnoses Critical illness myopathy [facility] [id number] [place] [id number] Phone: tel: fax: Referral ID Status Reason Start Date Expiration Date V isits Requested Visits Authorized Specialty Services Required Question Answer Reason for Consult? Critical Illness Myopathy Metastatic HCC S/p DCD OLT, 09/09 Biliary stricture of transplanted liver Acute blood loss Anemia, PRBC 09/27 (Crossmatch T and B cell weak positive ), 10/26 Parainfluenza pneumonia infection Anticipated Discharge Date 11/15/2024 Therapy/Assistance in Home PT - eval and treat, OT - eval and treat, Home Health Aide, Longterm Other Labs Tacrolimus level every Monday and before meds at 9:00 Call Lab Results to Liver Transplant P: [phone] F: [phone] Comments [id number] Encounter Documentation and Home Health Certification Patient Name: Charles Blandon : 1955 A [id number]-[id number] Encounter/Appointment was completed on 11/13/24 by David Cruz DO to evaluate the patient for Home Health services. I certify that I, or a qualified non-physician practitioner working with me, had a [id number]-[id number] encounter with this patient on the date specified above relating to the primary reason the patient requires Home Health services. The following clinical conditions noted during the encounter support the patients home bound status, in that absences from the home require considerable and taxing effort, are infrequent, and/or of short duration, or are due to the need to receive health care: Unsteady gait/frequent falls/poor balance. Requires supportive devices to walk. Clinical findings demonstrating the medical necessity for home health services include: Decline in patient condition due to hospitalization, requires skilled services. Patient has history of falls, problems with poor balance, gait instability. Based on the above findings, I certify that this patient is homebound and needs intermittent custodial care, physical therapy and/or speech therapy or continues to need occupational therapy. I have initiated the plan of care and this patient will be followed by a physician who will periodically review the plan of care. This order has been electronically signed. Encounter Details Date Type Department Care Team (Latest Contact Info) Description 10/30/2024 7:01 PM EDT - 11/15/2024 1:51 PM EDT Hospital Encounter [facility] [address] [place] [address] [place] [address] [place] [address] Critical illness myopathy (Primary Dx) Discharge Disposition: Discharged Home/Self Care Social History Tobacco Use Types Packs/Day Years Used Date Smoking Tobacco: Former Cigarettes Smokeless Tobacco: Never Alcohol Use Standard Drinks/Week Comments Not Currently 0 (1 standard drink = 0.6 oz pur e alcohol) 2-3 drinks every night [facility] Utilities Answer Date Recorded In the past 12 months has [employer] electric, gas, oil, or water company threatened to shut off services in your home? No 10/31/2024 Social Connection and Isolat ion Panel [NHANES] Answer Date Recorded In a typical week, how many times do you talk on the phone with family, friends, or neighbors? More than three times a week 10/31/2024 How often do you get togethe r with friends or relatives? More than three times a week 10/31/2024 How often do you attend chur ch or buddhism services? Never 10/31/2024 Do you belong to any clubs o r organizations such as adventist groups, unions, fraternal or athletic groups, or school groups? No 10/31/2024 How often do you attend meet ings of the clubs or organizations you belong to? Never 10/31/2024 Are you , , di vorced, , never , or living with a partner? 10/31/2024 AUDIT-C Answer Date Recorded Q1: How often do you have a drink containing alcohol? Never 10/31/2024 Q2: How many drinks containi ng alcohol do you have on a typical day when you are drinking? Patient does not drink Q3: How often do you have si x or more drinks on one occasion? Never 10/31/2024 Overall Financial Resource Strain (CARDIA) Answe r Date Recorded How hard is it for you to pa y for the very basics like food, housing, medical care, and heating? Not hard at all 10/31/2024 [facility] - Occupational Stress Questionnaire Answer Date Recorded Do you feel stress - tense, restless, nervous, or anxious, or unable to sleep at night because your mind is troubled all the time - these days? Not at all 11/15/2024 Hunger Vital Sign Answer Date Recorded Within the past 12 months, y ou worried that your food would run out before you got the money to buy more. Never true 11/01/19 25 Within the past 12 months, t he food you bought just didn't last and you didn't have money to get more. Never true 10/31/2024 Housing Stability Vital Sign Answer Karl e Recorded In the last 12 months, was t here a time when you were not able to pay the mortgage or rent on time? No 10/31/2024 In the past 12 months, how m any times have you moved where you were living? 0 10/31/2024 At any time in the past [address] [facility], were you homeless or living in a detention (including now)? No 10/31/2024 Domestic Abuse Assessment Answer Date R ecorded Do you feel safe in your relationships at home? Yes 10/30/2024 Physical Abuse Denies 10/30/2024 HRSN Domestic Abuse - Type of Abuse Not on file 10/30/2024 HRSN Domestic Abuse - Time Frame Not on file 10/30/2024 HRSN Domestic Abuse - Signs and Symptoms Not on file 10/30/2024 Verbal Abuse Denies 10/30/2024 HRSN Domestic Abuse - Reported To Not on file 10/30/2024 SDOH Transportation Source Answer Da te Recorded Has lack of transportation k ept you from medical appointments or from getting medications? No 11/14/2024 Has lack of transportation k ept you from meetings, work, or from getting things needed for daily living? No 11/14/2024 HRSN Depression PHQ-2 Answer Date Recor ded Feeling down, depressed, or hopeless 0 11/15/2024 Little interest or pleasure in doing things 0 11/15/2024 Sex and Gender Information Value Date Recorded Sex Assigned at Not on file Legal Sex Male 2:00 PM EDT Gender Identity Not on file Sexual Orientation Not on file documented as of this encounter Last Filed Vital Signs Vital Sign Reading Time Taken Comments Blood Pressure 107/70 11/15/2024 12:17 PM EDT Pulse 82 11/15/2024 7:56 AM EDT Temperature 36.1 C (97 F) 11/15/2024 7:56 AM EDT Respiratory Rate 17 11/15/2024 7:56 AM EDT Oxygen Saturation 96% 11/15/2024 7:56 AM EDT Inhaled Oxygen Concentration - - Weight 66.2 kg (146 lb) 11/15/2024 4:00 AM EDT Height 175.3 cm (5' 9 ) 10/30/2024 8:00 PM EDT Body Mass Index 21.56 10/30/2024 8:00 PM EDT documented in this encounter Functional Status * Audit-C Score Answer Date of Assessment Author 0 10/31/2024 3:00 AM EDT Jc Howell RN * Question Answer Date of Assessment Author Q1: How often do you have a drink containing alcohol? Never 10/31/2024 3:00 AM EDT Aniyah Howell RN Q2: How many drinks containing alcohol do you have on a typical day when you are drinking? Patient does not drink 10/31/2024 3:00 AM Aniyah Ch RN Q3: How often do you have six or more drinks on one occasion? Never 10/31/2024 3:00 AM Aniyah Ch RN documented as of this encounter Discharge Summaries * David S DO Anthony - 11/15/2024 11:03 AM EDT Images from the original note were not included. PHYSICAL MEDICINE AND REHABILITATION DISCHARGE SUMMARY Patient Name: Charles Blandon, 1955 Attending Physician: David Cruz DO Date of Admission: 10/30/2024 Date of Discharge: 11/15/24 Discharge Destination: 06 Home with Home Health Service Organization ([facility] [phone]) Discharge Destination Details : Own Home Discharge condition: stable Discharge Diagnoses: Critical Illness Myopathy Metastatic HCC S/p DCD OLT, 09/09 Biliary stricture of transplanted liver Acute blood loss Anemia, PRBC 09/27 (Crossmatch T and B cell weak positive ), 10/26 Parainfluenza pneumonia infection Fluid overload VRE Biliary stent infection Ascites s/p perihepatic collection aspiration and drain placement, 10/17. 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 Functional Bowel Incontinence Protein Calorie Malnutrition Gait Abnormality Ambulatory Dysfunction ADL Dysfunction Debility Cognitive Impairment Constipation Coordination Deficit Spasticity Skin Wound Neuropathic Pain Chronic Pain Balance Deficits HOSPITAL COURSE DURING INPATIENT REHAB: 69 year old male with PMHx: alcohol-induced cirrhosis, c/b portal HTN, ascites, hepatic encephalopathy (HE), and large esophageal varices (EV), as well as hereditary hemorrhagic telangiectasia (HHT) and Tipton???s esophagus (status post basal cell carcinoma excision in 2017), was recently diagnosed with hepatocellular carcinoma (HCC).Patient presented to the ED on 08/23 due to a sudden increase inconfusion and worsening abdominal bloating. Patient previously evaluated for liver transplant but evaluation was closed due to suspected metastatic HCC in the setting of a thoracic spine lesion. S/p biopsy of T10 lesion on 08/06- path revealed Intraosseous hibernoma. Initially admitted to [facility]. On 08/27:t transferred to MICU for worsening HE, hyponatremia, and elevated ammonia levels. 09/04 Patient evaluated as a recipient for liver transplant and was re-listed for liver transplant . 09/08 Patient'sstatus improved and transferred to the [facility]. His MELD score was 26. Patient evaluated as a recipient for liver transplant. 09/09 s/p DCD OLT. 09/10 Pt was extubated. Post op c/b pleural effusion- rt pigtail cath placed, hyponatremia and acute post op pain 09/16 transferred to [facility]. 09/17 RLQ DANIEL drain #2 was removed. LVUS 09/20: Patent hepatic vasculature with appropriately directed flow. 09/[address] was removed. 09/22 Pt with N/V, abdomen distended. KUB- ileus Pt declined NGT. 09/23 Pt started on CLD 09/24 Diet advanced to full liquid. 09/25 Pt with ongoing bloating, passing flatus and having BMs. He denied N/V. 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 diet advanced to Fiber Controlled. Patient hem 7.0 transfused with 1 unit PRBCs. Patient discharge to IRF 09/29-. On 10/07: Patient transported for CT of abdomen. Noted to have an ileus and ascites. Patientwas sent out to ED for further evaluation and management. Admitted under liver transplant service. CT of brain was negative.10/08 Pt continued to have swelling in BLE and abdomen. Pt reported SOB and not using oxygen. Slurred speech had improved with c/o of increased diarrhea. CT chest shows Moderate-sized loculated right hydropneumothorax; the pneumothorax .Interval increase in volume of a low-attenuation, medium-sized left pleural effusion. LVUS shows patent liver vasculature, Hgb 7.3, with no signs of bleeding and lasix was changed to IV for fluid overload. Positive for Parainfluenza. Placed on 2L via NC due to continued SOB on 10/09. Stopped Acyclovir and started Valcyte. 10/10: lasix and albumin IV x1. Pulm consult for pleural effusions with continued diuresis. 10/14 Pt was found to have hydropneumothorax and is now s/p thoracentesis 320cc drained 10/15 Pt underwent ERCP for elevated ALP: Biliary tree swept, pus and debris found. Large stone proximal to stenosis could not be removed. Metal stent placed in CBD. 10/17: Pt with ascities, now s/p perihepatic collection aspiration and drainplacement. DANIEL drain x1 RUQ to bulb suction, planned to remain in place until next ERCP. 10/19: KUB showed mildly dilated colon, likely ileus. 10/21:Flomax discontinued. 10/22: neurosurgery consulted for known T7, T8 , T10 and T12 compression fx and worsening back pain no surgical intervention. 10/23: Per ID Biliary stent infection enetroccous IV Daptomycin 700mg Q24hr until 11/12. 10/24 MRI brain was negative for acute abnormality. 10/26: Hgb 7.1, received 1unit of PRBC. 10/29: PT with c/o abd distention; US Liver showed patent hepatic vasculature with appropriately directed flow. Mildly increased multiloculated ascities. per liver team not enough fluid to drain. 10/30: Pt cleared for discharge to ARF. While in the ARU, pt received physical therapy for range of motion, transfer training, endurance/ balance, fall prevention, and gait training with appropriate assistive devices, occupational therapy for activity of daily living/equipment/ functional transfer evaluation and training, and speech thera py for language evaluation and speech re-education. Team conferences were held to monitor progress and tailor program to patients needs. Patient had appropriate pain management, bowel management, sleep management, GI and DVT prophylaxis. Pt was stable throughout ARU course without major medical comp lication. Pt participated in all therapies and continually improved to the point where the patient was deemedsafe and independent enough to perform activities of daily living without the supervision of the ARU. Pt was then discharged after all therapies were complete, discharge instructions were given, and m edications/supplies were dispensed. Refer to discharge instructions. Per Internal Medicine: Assessment/Plan: Hx of Liver transplantation CBD stent Bile leak (s/p perihepatic aspiration and drain placement) Completed daptomycin ERCP done 11/13 Continue Bactrim, Prograf, Valcyte Monitor CMV Continue baby aspirin due to thrombocytosis Ascites survey-small to moderate ascites VRE (vancomycin-resistant Enterococci) infection Continue Daptomycin, monitor CK (10) Cytomegalovirus (CMV) viremia Continue Valcyte Follow CMV levels qMon Fluid overload Lasix on hold 05/19 RENATE Trans daily weights RENATE No retention on bladder scans Lasix held Given 500 NS bolus UA is negative renal sono no acute process F/u with nephrology Nausea & vomiting Ileus without SBO Abdominal distention (small ascites) Continue regular diet Continue bowel regimen Zofran PRN KUB-non obstructive, gas filled loops Simethicone 4x daily Chronic bilateral low back pain without sciatica History of T11 and T12 compression fractures Consulted Neurosurgery - not an appropriate surgical candidate Pain control PT/OT Lumbar x-ray-no acute abnormalities Vertigo CT brain 10/07: negative MRI brain 10/24: negative for acute abnormality follow up with Vestibular Neurologist, Dr. Roach Moderate-sized loculated right hydropneumothorax. Medium-sized left pleural effusion RVP (+) parainfluenza 3 S/p left thoracentesis 10/14: 320 cc drained, culture NGTD Stable, currently on room air Anemia due to multiple mechanisms Monitor Severe protein-calorie malnutrition Continue regular diet Nutrition following GERD (gastroesophageal reflux disease) Continue pepcid BID DVT ppx; Heparin BID PHYSICAL EXAM ON DAY OF DISCHARGE: (Retired) Vitals (last 3 days) Date/Time Temp Pulse Resp BP SpO2 Weight 11/15/24 0756 97 ??F (36.1 ??C) 82 17 124/78 96 % -- 11/15/24 0548 -- -- -- 123/76 -- -- 11/15/24 0400 -- -- -- -- -- 146 lb (66.2 kg) 11/14/242054 96.9 ??F (36.1 ??C) 63 17 118/67 97 % -- 11/14/24 1718 -- 60 -- 117/70 -- -- 11/14/24 1226 -- 57 -- 105/65 -- -- 11/14/24 0759 96.9 ??F (36.1 ??C) 60 18 106/63 97 % -- 11/14/24 0400 -- -- -- -- -- 142 lb (64.4 kg) 11/13/24 1849 -- 76 -- 137/79 -- -- 11/13/24 1119 -- 72 -- 117/72 -- -- 11/13/24 0911 -- 90 -- 113/74 91 % -- 11/13/24 0746 97.1 ??F (36.2 ??C) 64 18 114/74 93 % -- 11/13/24 0621 -- 63 -- 151/82 -- -- 11/13/24 0400 -- -- -- -- -- 143 lb (64.9 kg) 11/12/241999 98.2 ??F (36.8 ??C) 62 18 144/80 96 % -- 11/12/24 1711 -- 75 -- 123/68 -- -- 11/12/24 1206 -- 83 -- 126/85 -- -- 11/12/2420 98.2 ??F (36.8 ??C) 61 17 119/73 94 % -- 11/12/24 0530 -- 61 -- 106/67 -- -- 11/12/24 0428 -- -- -- -- -- 142 lb 12.8 oz (64.8 kg) General: no acute distress HEENT: op clear with moist oral mucosa HEART: regular rate and rhythm, no murmurs LUNGS: clear to auscultation bilaterally with no wheezes or ronchi. ABDOMEN: soft, non tender, non distended with normoactive bowel sounds SKIN: no rashes, no pressure ulcers EXTREMITIES: no edema or calf tenderness Consultations Physicians: IM, Pulmonology, Cardiology, Nutrition, Nephology Procedures Preformed: N/A FUNCTIONAL CAPACITY PRIOR TO ADMISSION TO ARU: Prior to admission patient was independent with mobility, transfers, and ADLs without use of an assistive device. FUNCTIONAL CAPACITY UPON DISCHARGE FROM ARU: Discharge Summary (since 10/01/2024) PT Current Functional Status: Charles Hendersonenig's current mobility status is the following: mod I for transfers, ambulates short distances w/ RW at mod I, longer distances with CS-CGA and performs 8 stairs with L handrail and CGA-SBA DME recommendation: walker Therapy Recommendation at Discharge: PT Weight Bearing Status: Full - No restrictions throughout RUE: Full weight-bearing LUE: Full weight-bearing RLE: Full weight-bearing LLE: Full weight-bearing Patient needs assistance with the following: Negotiating stairs; Walking and/or mobility; Negotiating ramps or curbs; Use of ambulatory device ; Discharge Summary (since 10/01/2024) OT Current Functional Status: Family Training completed with , Fabiana. Caregiver verbalizes and demonstrates the ability to provide assist as recommended by the treatment team based on the patient's current functional status. Bill should receive supervision at discharge provided by family in the home setting. Recommended that patient receive continued skilled therapies in the home setting to work on endurance and strength. Weight Bearing Status: Full - No restrictions throughout RUE: Full weight-bearing LUE: Full weight-bearing RLE: Full weight-bearing LLE: Full weight-bearing Patient needs assistance with the following: Going out in the community; Activities of daily living ; Discharge Summary (since 10/01/2024) SURVEY RODMAN Current Functional Status: Pt was making slow progress with Fair-poor participation, often argumentative, assists with participation and cueing At this D.C, Pt presents with MCI in areas of Complex Problem Solving (MILD), Executive function (MILD) and Short term recall (SEV). Pt score 24/30 on MoCA. Pt participation has been a barrier and also severity of memory deficits impeding Pt ability to recall deficits, often resulting in combativeness. ALLERGIES: Allergies[1] DISCHARGE MEDICATIONS: Medication List START taking these medications Prescription Last Dose and Time given acyclovir 400 MG tablet Commonly known as: ZOVIRAX Take 1 tablet (400 mg total) by mouth in the morning and 1 tablet (400 mg total) before bedtime. Refill: 0 aspirin 81 MG EC tablet Take 1 tablet (81 mg total) by mouth in the morning. Indications: Acute Heart Attack. Refill: 0 81 mg on November 15, 2024 9:09 AM Buprenorphine 10 MCG/HR patch weekly Commonly known as: BUTBESSS Place 1 patch (10 mcg total) on the skin every 7 days Indications: Chronic Pain. Refill: 0 Start Taking: November 19, 2024 Ask your nurse or doctor ciprofloxacin 500 MG tablet Commonly known as: CIPRO Take 1 tablet (500 mg total) by mouth in the morning and 1 tablet (500 mg total) before bedtime. Doall this for 9 doses. Indications: Prophylaxis s/p procedure. Dispense: 9 tablet Refill: 0 500 mg on November 15, 2024 9:10 AM famotidine 20 MG tablet Commonly known as: PEPCID Take 1 tablet (20 mg total) by mouth in the morning and 1 tablet (20 mg total) before bedtime. Refill: 0 20 mg on November 15, 2024 9:10 AM magnesium hydroxide 400 MG/5ML suspension Commonly known as: MILK OF MAGNESIA Take 30 mL by mouth daily as needed for constipation (if patient prefers Oral medication). Refill: 0 magnesium oxide 400 (240-250 Mg) MG tablet Take 2 tablets (800 mg total) by mouth 3 (three) times a day. Refill: 0 800 mg on November 15, 2024 9:08 AM methocarbamol 750 MG tablet Commonly known as: ROBAXIN Take 1 tablet (750 mg total) by mouth 3 (three) times a day as needed for muscle spasms. Refill: 0 750 mg on November 15, 2024 9:16 AM midodrine 10 MG tablet Commonly known as: PROAMATINE Take 1 tablet (10 mg total) by mouth in the morning and 1 tablet (10 mg total) at noon and 1 tablet(10 mg total) in the evening. Refill: 0 10 mg on November 15, 2024 12:18 PM mirtazapine 7.5 MG tablet Commonly known as: REMERON Take 1 tablet (7.5 mg total) by mouth nightly. Refill: 0 7.5 mg on November 14, 2024 8:10 PM multivitamin w/ minerals Tab/Cap tablet Take 1 each (1 tablet total) by mouth in the morning. Refill: 0 1 tablet on November 15, 2024 9:16 AM oxyCODONE 5 MG immediate release tablet Commonly known as: ROXICODONE Take 1-2 tablets (5-10 mg total) by mouth every 6 (six) hours as needed (5mg moderate pain, 10mg severe pain) for up to 9 days Indications: Acute Pain. Max Daily Amount: 40 mg Refill: 0 10 mg on November 15, 2024 9:16 AM pantoprazole 40 MG EC/DR tablet Commonly known as: PROTONIX Take 1 tablet (40 mg total) by mouth in the morning and 1 tablet (40 mg total) in the evening. Takebefore meals. Refill: 0 40 mg on November 15, 2024 9:10 AM simethicone 80 MG chewable tablet Commonly known as: MYLICON Chew 1 tablet (80 mg total) in the morning and 1 tablet (80 mg total) at noon and 1 tablet (80 mg total) in the evening and 1 tablet (80 mg total) before bedtime. Refill: 0 80 mg on November 15, 2024 12:18 PM sulfamethoxazole-trimethoprim 800-160 MG per tablet double-strength Commonly known as: BACTRIM Take 1 tablet by mouth 3 (three) times a week Indications: prophylaxis. Refill: 0 Start Taking: November 18, 2024 1 tablet on November 13, 2024 8:04 AM tacrolimus 5 MG capsule Commonly known as: PROGRAF Take 1 capsule (5 mg total) by mouth in the morning and 1 capsule (5 mg total) before bedtime. Refill: 0 5 mg on November 15, 2024 5:41 AM tamsulosin 0.4 MG capsule Commonly known as: FLOMAX Take 1 capsule (0.4 mg total) by mouth nightly. Refill: 0 0.4 mg on November 14, 2024 8:10 PM traZODone 50 MG tablet Commonly known as: DESYREL Take 1 tablet (50 mg total) by mouth nightly. Refill: 0 50 mg on November 14, 2024 8:10 PM ursodiol 300 MG capsule Commonly known as: ACTIGALL Take 1 capsule (300 mg total) by mouth 3 (three) times a day. Refill: 0 300 mg on November 15, 2024 9:09 AM LABS/X-RAYS/IMAGING STUDIES while on rehab: CBC with Differential: Recent Labs Lab Units 11/15/24 0530 WBC k/uL 2.45* RBC AUTO m/uL 2.57* HEMOGLOBIN g/dL 7.8* HEMATOCRIT % 25.4* PLATELETS AUTO k/uL 583* MCV fL 98.8 MCH pg 30.4 MCHC g/dL 30.7 [ MG/PHOS: Recent Labs Lab Units 11/15/24 0530 MAGNESIUM mg/dL 2.1 PHOSPHORUS mg/dL 4.7 CMP: Recent Labs Lab Units 11/15/24 0530 SODIUM mmol/L 135* POTASSIUM mmol/L 5.1 CHLORIDE mmol/L 101 CO2 mmol/L 22 BUN mg/dL 17 CREATININE mg/dL 1.52* GLUCOSE mg/dL 88 PROTEIN TOTAL g/dL 5.5* CALCIUM mg/dL 8.6 ALBUMIN g/dL 2.9* BILIRUBIN, TOTAL mg/dL 0.2 ALKALINE PHOSPHATASE U/L 143* ALT U/L 11 AST U/L 20 ANION GAP mmol/L 12 Glucose Last 3 Days: ERCP Result Date: 11/13/2024 Q3 Patient Name: Charles Blandon Procedure Date: 11/13/2024 1:11 PM Date of : 1955 Admit Type: Outpatient Age: 69 Gender: Male Note Status: Finalized Attending MD: Jane Flores MD, [id number] Procedure: ERCP Indications: Common bile duct stone(s), Benign stricture ofthe common bile duct, Post liver transplant assessment Providers: Jane Correia MD PatientProfile: This is a 69 year old male. Refer to note in patient chart for documentation of history and physical. Referring Physician: Desiree Cruz (Referring MD) Medicines: General Anesthesia, [id number] mg IV Complications: No immediate complications. Requesting Provider: Procedure: Pre-Anesthesia Assessment: - Prior to the procedure, a History and Physical was performed, and patient medicationsand allergies were reviewed. The patient's tolerance of previous anesthesia was also reviewed. Therisks and benefits of the procedure and the sedation options and risks were discussed with the patient. All questions were answered, and informed consent was obtained. Prior Anticoagulants: The patient has taken no anticoagulant or antiplatelet agents except for aspirin. ASA Grade Assessment: III -A patient with severe systemic disease. After reviewing the risks and benefits, the patient was deemed in satisfactory condition to undergo the procedure. After obtaining informed consent, the scopewas passed under direct vision. Throughout the procedure, the patient's blood pressure, pulse, and oxygen saturations were monitored continuously. The Duodenoscope was introduced through the mouth, and advanced to the duodenum and used to inject contrast into the bile duct. The ERCP was accomplished without difficulty. The patient tolerated the procedure well. Moderate Sedation: General anesthesia was administered by the anesthesia team. Findings: A contestant coordinator film of the abdomen was obtained. Surgical clips were seen in the area of the right upper quadrant of the abdomen. One stent ending in the main bile duct was seen. A percutaneous drain was seen in the subhepatic space. One covered metal stent originating in the biliary tree was emerging from the major papilla. A biliary sphincterotomy had been performed. The sphincterotomy appeared open. The bile duct was deeply cannulated with the 11.5 mm balloon and guidewire. Contrast was injected. I personally interpreted the bile duct images. There was brisk flow of contrast through the ducts. Image quality was excellent. Contrast extended tothe main bile duct. Contrast extended to the hepatic ducts. The biliary tree was swept with an 11.5mm balloon starting at the bifurcation. Sludge and stones were swept from the duct. All stones were removed. No further filling defects remained. Upon withdrawal of the duodenoscope, the cap was dislodged. A standard gastroscope was used to perform an esophagogastroduodenoscopy. The cap was not found and likely traversed into the small bowel. The mouth and oropharynx were thoroughly evaluated with the gastroscope and digitally and confirmed the cap was not in the oropharynx or mouth prior to extubation. Impression: - One stent from the biliary tree was seen in the major papilla. - Prior biliary sphincterotomy appeared open. - Choledocholithiasis was found. Complete removal was accomplished by balloon extraction. - The biliary tree was swept. Estimated Blood Loss: Estimated blood loss:none. Recommendation: - Discharge patient to a [facility]. - Resume previous diet. - Cipro (ciprofloxacin) 500 mg PO BID for 5 days. - Repeat ERCP for stent removal n 3 months. Procedure Code(s): --- Professional --- 44442, Endoscopic retrograde cholangiopancreatography (ERCP); with removal of ca lculi/debris from biliary/pancreatic duct(s) 82936, Endoscopic catheterization of the biliary ductal system, radiological supervision and interpretation Diagnosis Code(s): --- Professional --- Z96.89, Presence of other specified functional implants K80.51, Calculus of bile duct without cholangitisor cholecystitis with obstruction Z09, Encounter for follow-up examination after completed treatment for conditions other than malignant neoplasm Z94.4, Liver transplant status CPT copyright 2020 [employer]. All rights reserved. Attending Participation: I was present and participated during the entire procedure, including non-david portions. 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 Refer to note in patient chart for documentation of history and physical. Referring Physician: Desiree Cruz (Referring MD) Medicines: General Anesthesia, [id number] mg IV Complications: No immediate complications. Requesting Provider: Procedure: Pre-Anesthesia Assessment: - Prior to the procedure, a History and Physical was performed, and patient medicationsand allergies were reviewed. The patient's tolerance of previous anesthesia was also reviewed. The risks and benefits of the procedure and the sedation options and risks were discussed with the patient. All questions were answered, and informed consent was obtained. Prior Anticoagulants: The patient has taken no anticoagulant or antiplatelet agents except for aspirin. ASA Grade Assessment: III -A patient with severe systemic disease. After reviewing the risks and benefits, the patient was deemed in satisfactory condition to undergo the procedure. After obtaining informed consent, the scopewas passed under direct vision. Throughout the procedure, the patient's blood pressure, pulse, andoxygen saturations were monitored continuously. The Duodenoscope was introduced through the mouth, and advanced to the duodenum and used to inject contrast into the bile duct. The ERCP was accomplished without difficulty. The patient tolerated the procedure well. Moderate Sedation: General anesthesia was administered by the anesthesia team. Findings: A contestant coordinator film of the abdomen was obtained. Surgical clips were seen in the area of the right upper quadrant of the abdomen. One stent ending in themain bile duct was seen. A percutaneous drain was seen in the subhepatic space. One covered metal stent originating in the biliary tree was emerging from the major papilla. A biliary sphincterotomy had been performed. The sphincterotomy appeared open. The bile duct was deeply cannulated with the 11.5 mm balloon and guidewire. Contrast was injected. I personally interpreted the bile duct images. There was brisk flow of contrast through the ducts. Image quality was excellent. Contrast extended tothe main bile duct. Contrast extended to the hepatic ducts. The biliary tree was swept with an 11.5mm balloon starting at the bifurcation. Sludge and stones were swept from the duct. All stones were removed. No further filling defects remained. Upon withdrawal of the duodenoscope, the cap was dislodged. A standard gastroscope was used to perform an esophagogastroduodenoscopy. The cap was not found and likely traversed into the small bowel. The mouth and oropharynx were thoroughly evaluated with the gastroscope and digitally and confirmed the cap was not in the oropharynx or mouth prior to extubation. Impression: - One stent from the biliary tree was seen in the major papilla. - Prior biliary sphincterotomy appeared open. - Choledocholithiasis was found. Complete removal was accomplished by balloon extraction. - The biliary tree was swept. Estimated Blood Loss: Estimated blood loss: none. Recommendation: - Discharge patient to a [facility]. - Resume previous diet. - Cipro (ciprofloxacin) 500 mg PO BID for 5 days. - Repeat ERCP for stent removal n 3 months. Procedure Code(s): --- Professional --- 51933, Endoscopic retrograde cholangiopancreatography (ERCP); with removal of calcul i/debris from biliary/pancreatic duct(s) 50073, Endoscopic catheterization of the biliary ductal system, radiological supervision and interpretation Diagnosis Code(s): --- Professional --- Z96.89, Presence of other specified functional implants K80.51, Calculus of bile duct without cholangitis or cholecystitis with obstruction Z09, Encounter for follow-up examination after completed treatment for conditions other than malignant neoplasm Z94.4, Liver transplant status CPT copyright 2020 [employer]. All rights reserved. Attending Participation: I was present and participated during the entire procedure, including non-david portions. Scope In: 2:57:12 PM Scope Out: 3:17:12 PMDr. MD Jane Colmenares MD 11/13/2024 3:25:50 PM This report has been signed electronically by Jane Correia MD Number of Addenda: 0 Note Initiated On: 11/13/2024 1:11 PM US renal complete Result Date: 11/08/2024 * * *Final Report* * * DATE OF EXAM: Nov 08 2024 1:00PM [facility] 1055 - US KIDNEY/BLADDER / PROCEDURE REASON: RENATE * * * * Physician Interpretation * * * * EXAMINATION: RENAL ULTRASOUND CLINICAL HISTORY: Acute kidney injury. TECHNIQUE: Sonography of the kidneys and urinary bladder was performed. Images were obtained and stored in a permanent archive. MQ: UR_1 COMPARISON: None RESULT: Right Kidney: -Renal length: 10.6 cm -Parenchyma: Normal parenchymal echogenicity. Normal parenchymal thickness. -Collecting system: No hydronephrosis. -Calculus: No echogenic, shadowing calculus.-Lesion: None. Left Kidney: -Renal length: 10.1 cm -Parenchyma: Normal parenchymal echogenicity. Normal parenchymal thickness. -Collecting system: No hydronephrosis. -Calculus: No echogenic, shadowing calculus. -Lesion: None. Bladder: The prevoid urinary bladder volume is 67 cc. Anterior to the urinary bladder a cystic, multiseptated region is identified, likely representing complex fluid. IMPRESSION: Sonographically unremarkable the kidneys. Complex fluid, with septations noted in the anterior lower pelvis. Stripper Apprentice: [facility] Transcribe Date/Time: Nov 08 2024 1:49P Dictated by : CHARIS WHALEN MD This examination was interpreted and the report reviewed and electronically signed by:CHARIS WHALEN MD on Nov 08 2024 1:52PM [facility] US kidneys and bladder Result Date: 11/08/2024 * * *Final Report* * * DATE OF EXAM: Nov 08 2024 1:00PM [facility] 1055 - US KIDNEY/BLADDER / PROCEDURE REASON: RENATE * * * * Physician Interpretation * * * * EXAMINATION: RENAL ULTRASOUND CLINICAL HISTORY: Acute kidney injury. TECHNIQUE: Sonography of the kidneys and urinary bladder was performed. Images were obtained and stored in a permanent archive. MQ: UR_1 COMPARISON: None RESULT: Right Kidney: -Renal length: 10.6 cm -Parenchyma: Normal parenchymal echogenicity. Normal parenchymal thickness. -Collecting system: No hydronephrosis. -Calculus: No echogenic, shadowing calculus.-Lesion: None. Left Kidney: -Renal length: 10.1 cm -Parenchyma: Normal parenchymal echogenicity. Normal parenchymal thickness. -Collecting system: No hydronephrosis. -Calculus: No echogenic, shadowing calculus. -Lesion: None. Bladder: The prevoid urinary bladder volume is 67 cc. Anterior to the urinary bladder a cystic, multiseptated region is identified, likely representing complex fluid. IMPRESSION: Sonographically unremarkable the kidneys. Complex fluid, with septations noted in the anterior lower pelvis. Stripper Apprentice: [facility] Transcribe Date/Time: Nov 08 2024 1:49P Dictated by : CHARIS WHALEN MD This examination was interpreted and the report reviewed and electronically signed by:CHARIS WHALEN MD on Nov 08 2024 1:52PM EST XR ABDOMEN 1 VWS Result Date: 11/07/2024 * * *Final Report* * * DATE OF EXAM: Nov 07 2024 2:24PM [id number] - XR ABDOMEN 1V SUPINE / PROCEDURE REASON: ABD PAIN, FEVER, NO RECENT SURGERY * * * * Physician Interpretation * * Clinical Information: Abdominal distention Supine views of the abdomen were obtained. Gas-filled loops of small and large bowel in a nonspecific and nonobstructive pattern. No abnormal abdominal masses are identified. No pathologic calcifications. Common bile duct stent. Surgical clips right upper quadrant. Surgical drain tip within the gallbladder fossa. No acute bony abnormalities are seen. IMPRESSION: Nonspecific, nonobstructive bowel gas pattern. Stripper Apprentice: [facility] Transcribe Date/Time: Nov 07 2024 2:50P Dictated by : AMARILIS MACK MD This examination was interpreted and the report reviewed and electronically signed by: AMARILIS MACK MD on Nov 07 2024 2:52PM EST XR ABDOMEN 1V SUPINE Result Date: 11/07/2024 * * *Final Report* * * DATE OF EXAM: Nov 07 2024 2:24PM [id number] - XR ABDOMEN 1V SUPINE / PROCEDURE REASON: ABD PAIN, FEVER, NO RECENT SURGERY * * * * Physician Interpretation * * * * Clinical Information: Abdominal distention Supine views of the abdomen were obtained. Gas-filled loops of small and large bowel in a nonspecific and nonobstructive pattern. No abnormal abdominal masses are identified. No pathologic calcifications. Common bile duct stent. Surgical clips rightupper quadrant. Surgical drain tip within the gallbladder fossa. No acute bony abnormalities are seen. IMPRESSION: Nonspecific, nonobstructive bowel gas pattern. Stripper Apprentice: [facility] Transcribe Date/Time: Nov 07 2024 2:50P Dictated by : AMARILIS MACK MD This examination was interpreted and the report reviewed and electronically signed by: AMARILIS MACK MD on Nov 07 2024 2:52PM EST US abdomen limited Result Date: 11/06/2024 * * *Final Report* * * DATE OF EXAM: Nov 06 2024 3:45PM [id number] - US ABDOMEN LTD / PROCEDURE REASON: ASCITES SURVEY * * * * Physician Interpretation * * * * Clinical information: Ascites Ascites survey was performed. Images were obtained and stored in a permanent archive. Small to moderate volume ascites within the right lower quadrant, left upper quadrant, and left lower quadrant. Ascites contains multiple septations. Partially visualized small right-sided pleural effusion. Impression: Small to moderate volume ascites containing multiple septations Stripper Apprentice: [facility] Transcribe Date/Time: Nov 06 2024 4:32P Dictated by : AMARILIS MACK MD This examination was interpreted and the report reviewed and electronically signed by: AMARILIS MACK MD on Nov 06 2024 4:33PM EST XR lumbar spine 1 vws Result Date: 11/04/2024 * * *Final Report* * * DATE OF EXAM: Nov 04 2024 3:30PM [id number] [id number] - XR LUMBAR 1V / PROCEDURE REASON: 11/24 acute on chronic back pain with hx of compression fractures * * * * Physician Interpretation * * * * Information: Back pain, compression fractures Limited AP only view of the lumbar spine was obtained. Study correlated with CT scan dated 10/24/2024. Compression deformities involving T11 and T12, visualization is limited. No definite lumbar compression fractures. Lumbar disc spaces are grossly maintained. Impression: Limited AP only study with suboptimal visualization of the lumbar spine. No definite lumbar compression fracture. T11 and T12 compression fractures better seen on prior CT scan. Stripper Apprentice: [facility] Transcribe Date/Time: Nov 04 2024 4:31P Dictated by: AMARILIS MACK MD This examination was interpreted and the report reviewed and electronically signed by: AMARILIS MACK MD on Nov 04 2024 4:32PM EST XR CHEST 1 VWS Result Date: 11/04/2024 * * *Final Report* * * DATE OF EXAM: Nov 01 2024 2:39PM [id number] - XR CHEST 1V FRONTAL / PROCEDURE REASON: pleural effusion * * * * Physician Interpretation * * * * EXAMINATION:CHEST RADIOGRAPH (PORTABLE SINGLE VIEW AP) EXAM DATE/TIME: 11/01/2024 2:39 PM INDICATIONS: Shortnessof breath. Pleural effusion MQ: XCPR_5 COMPARISON: 10/14/2024 RESULT: Lines, tubes, and devices: Interval placement of a right PICC line, with the distal tip in the lower SVC/upper atrium. Lungs and pleura: Interval decrease in opacification of the right lower lung zone, compatible with decrease inright pleural effusion and right basilar opacities. Small to moderate amount of airspace opacities still persists in the right lower lung zone; atelectasis/scarring versus infiltrates. Small amount of patchy opacities in the left lower lung zone that could be related to mild subsegmental atelectasis. A tiny left pleural effusion cannot be excluded. Prominence of interstitial markings raising the possibility of mild pulmonary vascular congestion. Cardiomediastinal silhouette: Stable cardiomediastinal silhouette. No acute osseous abnormality. IMPRESSION: Interval decrease in the right pleural effusion and right basilar opacities. Possible mild pulmonary vascular congestion. Stripper Apprentice: [facility] Transcribe Date/Time: Nov 04 2024 8:27A Dictated by : CHARIS WHALEN MD This examination was interpreted and the report reviewed and electronically signed by: CHARIS WHALEN MD on Nov 04 2024 8:28AM EST US abdomen limited Result Date: 11/03/2024 * * *Final Report* * * DATE OF EXAM: Nov 03 2024 1:28PM [id number] - US ABDOMEN LTD / PROCEDURE REASON: evaluate for ascites * * * * Physician Interpretation * * * * EXAMINATION: US ABDOMEN LTD HISTORY: evaluate for ascites TECHNIQUE: Limited evaluation of the abdomen to evaluate for ascites . Images were obtained and stored in a permanent archive. COMPARISON: 10/29/2024 ultrasound RESULT: See Impression. - IMPRESSION: Small to moderate volume of multiloculated ascites with numerous septations is similar to prior study. Stripper Apprentice: [facility] Transcribe Date/Time: Nov 03 2024 2:13P Dictated by : MD YOLANDA This examination was interpreted and the report reviewed and electronically signed by: JIM LUZ MD on Nov 03 2024 2:14PM EST US DOPPLER COMPLETE Result Date: 10/29/2024 * * *Final Report* * * DATE OF EXAM: Oct 29 2024 3:39PM [facility] 1033 - US DOPPLER COMPLETE / PROCEDURE REASON: Liver transplant * * * * Physician Interpretation * * * * EXAMINATION:LIVER VASCULAR ULTRASOUND WITH DOPPLER IMAGING CLINICAL HISTORY: 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 Images were obtained and stored in a permanent archive. MQ: USLV_1 COMPARISON:CT 10/24/2024, ultrasound 10/19/2024. RESULT: Sonographic Findings: Pancreas: Normal sonographic appearance. Portions obscured: tail Liver: Echotexture: Normal, homogeneous. Echogenicity: Normal Surface contour: Smooth Lesions: None. Biliary: No intrahepatic biliary duct dilation. Stable pneumobilia. CBD: 0.8 cm at the hilum. Gallbladder: Prior cholecystectomy. Gallbladder fossa partially obscured with drain in place. Right Kidney: No hydronephrosis. Spleen: Craniocaudal length 9.4 cm, normal.There are no splenic lesions. Other: Moderate volume loculated ascites, increased from prior ultrasound 10/19/2024 HEPATIC VASCULATURE: PORTAL SYSTEM: -Splenic Vein: Patent with antegrade flow (towards the liver). -Main PV: Patent with phasic antegrade flow (towards liver). 44-58 cm/sec. [id number] cm/sec. -Right anterior PV: Patent with phasic antegrade flow (towards liver). 25.5 cm/sec. Pr eviously 30 cm/sec -Right posterior PV: Patent with phasic antegrade flow (towards liver). 30 cm/sec. Previously 32 cm/sec -Left PV: Patent with phasic antegrade flow (towards liver). 19 cm/sec. Previously 26 cm/sec HEPATIC ARTERIES: - Main THIBODEAUX: Normal waveform PSV: 51-57 cm/sec. RI: 0.74-0.75. Previ ously 70-84 cm/sec. RI: 0.76-0.80 - Right anterior THIBODEAUX: Normal waveform PSV: 59 cm/sec. RI: 0.68. Previously 66 cm/sec. RI: 0.72 - Right posterior THIBODEAUX: Normal waveform PSV: 81 cm/sec. RI: 0.74. Previously 66 cm/sec. RI: 0.77 - Left THIBODEAUX: Normal waveform PSV: 60 cm/sec. RI: 0.70. Previously 73 cm/sec. RI: 0.77 HEPATIC VEINS: -Left: Patent with triphasic waveform. -Middle: Patent with triphasic waveform. -Right: Patent with triphasic waveform. IVC: Patent with normal, phasic wave form. IMPRESSION: Patent hepatic vasculature with appropriately directed flow. Mildly increased multiloculated ascites. Stripper Apprentice: [facility] Transcribe Date/Time: Oct 29 2024 3:46P Dictated by : MARIO YU MD This examination was interpreted and the report reviewed and electronically signed by: AMARILIS ADAMSON MD on Oct 29 2024 4:11PM EST US ABD LIVER VASCULAR TRANSPLANT () Result Date: 10/29/2024 * * *Final Report* * * DATE OF EXAM: Oct 29 2024 3:00PM [facility] 0685 - [facility] LIVER VASCULAR TRANSPLANT/ PROCEDURE REASON: Liver transplant * * * * Physician Interpretation * * * *EXAMINATION: LIVER VASCULAR ULTRASOUND WITH DOPPLER IMAGING CLINICAL HISTORY: 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 Images were obtained and stored in a permanent archive. MQ: USLV_1 COMPARISON: CT 10/24/2024, ultrasound 10/19/2024. RESULT: Sonographic Findings: Pancreas: Normal sonographic appearance. Portions obscured: tail Liver: Echotexture: Normal, homogeneous. Echogenicity: Normal Surface contour: Smooth Lesions: None. Biliary: No intrahepatic biliary duct dilation. Stable pneumobilia. CBD: 0.8 cm at the hilum. Gallbladder: Prior cholecystectomy. Gallbladder fossa partially obscured with drain in place. Right Kidney: No hydronephrosis. Spleen: Craniocaudal length 9.4cm, normal. There are no splenic lesions. Other: Moderate volume loculated ascites, increased from p rior ultrasound 10/19/2024 HEPATIC VASCULATURE: PORTAL SYSTEM: -Splenic Vein: Patent with antegradeflow (towards the liver). -Main PV: Patent with phasic antegrade flow (towards liver). 44-58 cm/sec. Previously 38-53 cm/sec. -Right anterior PV: Patent with phasic antegrade flow (towards liver). 25.5 cm/sec. Previously 30 cm/sec -Right posterior PV: Patent with phasic antegrade flow (towards liver). 30 cm/sec. Previously 32 cm/sec -Left PV: Patent with phasic antegrade flow (towards liver). 19 cm/sec. Previously 26 cm/sec HEPATIC ARTERIES: - Main THIBODEAUX: Normal waveform PSV: 51-57 cm/sec. RI: 0.74-0.75. Previously 70-84 cm/sec. RI: 0.76-0.80 - Right anterior THIBODEAUX: Normal waveform PSV: 59 cm/sec. RI: 0.68. Previously 66 cm/sec. RI: 0.72 - Right posterior THIBODEAUX: Normal waveform PSV: 81 cm/sec. RI: 0.74. Previously 66 cm/sec. RI: 0.77 - Left THIBODEAUX: Normal waveform PSV: 60 cm/sec. RI: 0.70. Previously 73 cm/sec. RI: 0.77 HEPATIC VEINS: -Left: Patent with triphasic waveform. -Middle: Patent with triphasic waveform. -Right: Patent with triphasic waveform. IVC: Patent with normal, phasic wave form. IMPRESSION: Patent hepatic vasculature with appropriately directed flow. Mildly increased multiloculated ascites. Stripper Apprentice: [facility] Transcribe Date/Time: Oct 29 2024 3:46P Dictated by : MARIO YU MD This examination was interpreted and the report reviewed and electronically signed by: AMARILIS ADAMSON MD on Oct 29 2024 4:11PM EST MRI BRAIN WO IVCON Result Date: 10/24/2024 * * *Final Report* * * DATE OF EXAM: Oct 24 2024 7:06PM Q 0294 - MRI BRAIN WO IVCON / PROCEDURE REASON: Dizziness, non-specific * * * * Physician Interpretation * * * * EXAMINATION: MRI BRAIN WO IVCON CLINICAL HISTORY: Dizziness TECHNIQUE: Routine noncontrast MRI protocol including diffusion images. MQ: MRBWO_2 COMPARISON: Head CT 10/07/2024 RESULT: Acute Change: There is no evidence of restricted diffusion to suggest an acute infarct. Hemorrhage: No evidence of prior parenchymal hemorrhage on the susceptibility weighted images. Mass Lesion/ Mass Effect: No evidence of an intracranial mass or extra-axial fluid collection. No mass effect. Chronic Change: Extensive patchy confluent T2 FLAIR hyperintense lesions are present throughout the bilateral supratentorial brainand alejandra compatible with sequela of chronic small vessel disease. Moderate diffuse brain volume loss. Ventricles: No evidence of hydrocephalus. Skull Base: Hypothalamic and pituitary region are grossly normal. Craniocervical junction is normal. No significant marrow replacement process. Vasculature: Major intracranial arterial structures, and dural venous sinuses show typical flow void, suggesting patency by spin echo criteria. Other: The visualized paranasal sinuses and mastoid air cells are cl ear. The orbits and extracranial soft tissues are unremarkable. IMPRESSION: No evidence of acute intracranial abnormality. Extensive patchy confluent T2 FLAIR hyperintense lesions are present throughout the bilateral supratentorial brain and alejandra compatible with sequela of chronic small vessel disease. Stripper Apprentice: SRINI Transcribe Date/Time: Oct 24 2024 7:06P Dictated by : JASON ZURITA MD This examination was interpreted and the report reviewed and electronically signed by: JASON ZURITA MD on Oct 24 2024 7:10PM EST CT ABD/PEL W IVCON Result Date: 10/24/2024 * * *Final Report* * * DATE OF EXAM: Oct 24 2024 6:28PM [facility] 0530 - CT ABD/PEL W IVCON / PROCEDURE REASON: Abdominal pain, acute, nonlocalized * * * * Physician Interpretation * * * * EXAMINATION: CT ABDOMEN AND PELVIS WITH IV CONTRAST CLINICAL HISTORY: 69-year-old man with a history of liver transplant on 09/09/2024, now with vomiting and abdominal pain/distention TECHNIQUE: CT of the abdomen and pelvis was performed using standard technique, scanning from just above the dome of the diaphragm to the symphysis pubis. MQ: CTAP_3 Contrast: Central IV: 100 ml of Omnipaque 350: ml of CT Radiation dose: Integrated Dose-length product (DLP) for this visit = 402 mGy*cm. CT Dose Reduction Employed: mAs-kVp adjusted based on patient size-age COMPARISON: 10/16/2024 and 10/18/2024 RESULT: Liver: Liver transplant. Mildly decreasing conspicuity and size of ill-defined low-attenuation lesion in the right hepatic lobe (i.e. 3:22), likely resolving infarction/infection. Biliary: No bile duct dilation. Common bile duct stent in place with expected pneumobilia. Cholecystectomy. Residual 4.1 x 2.0 cm collection in the gallbladder fossa (3:45), previously measuring 3.9 x 2.8 cm when measured similarly. Previously well-positioned drain within this collection seen on CT 10/18/2024, hasbeen slightly retracted in the interval, with the pigtail now uncurled, with several of the sideholes now within the liver parenchyma. Spleen: No mass. No splenomegaly. Pancreas: No mass or duct dilation. Adrenals: No mass. Kidneys: No mass, calculus or hydronephrosis. GI tract: A single loop of jejunum in the left upper quadrant measures up to 5 cm, without transition point, and enteric contrast reaching the terminal ileum/cecum.. Colonic diverticulosis, without acute diverticulitis. NG/OG tube terminating at the gastric body, sidehole subdiaphragmatic. Lymph nodes: No abdominal or pelvic lymphadenopathy. Mesentery/Peritoneum: Moderate volume ascites, slightly increased since 10/18/2024. Mild diffuse peritoneal thickening/enhancement. No loculated fluid collection otherwise. Retroperitoneum: No mass. Vasculature: - Abdominal aorta and iliac arteries: Atherosclerotic calcifications without aneurysm. - Celiac and SMA: Patent without stenosis. - Portal venous system (SMV, splenic vein, portal vein and branches): Patent. - Hepatic veins: Patent. Pelvis: No mass or fluid collection. Right inguinal hernia containing ascitic fluid. Bones/Soft Tissues: Severe compression deformities of T12 and L1, unchanged. Diffuse body wall edema. Lower thorax: Moderate left pleural effusion. Small right loculated hydropneumothorax, unchanged. Bibasilar atelectasis. Localizer images: No additional findings. IMPRESSION: Further mild interval decrease in size of gallbladder fossa collection. Of note, the previously well-positioned percutaneous drain is now slightly retracted, with a few of the sideholes now within the hepatic parenchyma. Slightly increased moderate volume ascites, with new peritoneal thi ckening/enhancement, suggestive of peritonitis, perhaps bile peritonitis given somewhat malpositioned percutaneous drain within the known biliary leak. Stripper Apprentice: SRINI Transcribe Date/Time: Oct 24 2024 6:39P Dictated by : MIKE OATES MD This examination was interpreted and the report reviewed and electronically signed by: MIKE OATES MD on Oct 24 2024 6:50PM EST IR VASCULAR ACCESS TEAM PICC INSERTION RADIO Result Date: 10/24/2024 Eileen Hernandez RN 10/24/2024 11:49 AM PICC NURSE INSERTION NOTE DATE OF PROCEDURE: October 24, 2024 TIME OF PROCEDURE: 1100 ORDERING PHYSICIAN: Brandi Alarcon INFORMED CONSENT: Obtained per hospital policy. INDICATION FOR LINE PLACEMENT: COPAT CONDITION OF LINE PLACEMENT: Sterile PRIMARY PROCEDURALIST: Ceci Beauchamp RN MARKETING DESIGNER: Lili Hernandez RN PRE-PROCEDURE REVIEW ALLERGIES No Known Allergies Known History of Upper Venous Thrombosis: No Known History of Permanent Pacemaker or Automated Implanted Cardiac Device: No Previous Breast Surgery of Lymph Node Dissection: No Estimated Glomerular Filtration Rate Date Value Ref Range Status 10/24/2024 95 >=60 mL/min/1.73m Final Comment: Estimated Glomerular Filtration Rate (eGFR) is calculated using the 2020 CKD-EPI creatinine equation. This equation utilizes serum creatinine, sex, and age as parameters. The creatinine assay has traceable calibration to isotope dilution-mass spectrometry. Refer to KDIGO guidelines for clinical interpretation. In patients with unstable renal function, e.g. those with acute kidney injury, the eGFR may not accurately reflect actual GFR. eGFR- Date Value Ref Range Status 10/17/2016 >60 Final History of Renal Disease: CKD, GFR 92 Ultrasound Assessment Complete: Yes PROCEDURE NARRATIVE SAFE PRACTICE Hand Hygiene per Hospital Policy: Yes Skin Preparation Unit Dose Applicator Used: Chloraprep (CHG + alcohol), allowed to dry. Procedure Surface Cleansed with Antimicrobial Wipes: Yes BarriersUsed by Proceduralist and all Assisting Personnel: Yes UNIVERSAL PROTOCOL / SAFETY CHECKLIST Procedure to be Performed: peripherally inserted central catheter Sign In: A Moment of CARE was completed.Appropriate PPE (Personal Protective Equipment) worn by all providers involved with the procedure. Special equipment not required. Patient/Surrogate Stated/Verified: Patient name, Date of , Relevant allergies, and The intended procedure Time Out: Relevant labs, photos, and/or imaging studies have been reviewed. Intended patient and procedure match the source document(s) (e.g. consent, H&P, associated studies [imaging, pathology]) match the intended patient and procedure. Consent obtained and matches the intended procedure. Yes. Correct side/site has been marked and visible. Medications required for this procedure are verified. Fire risk assessed and is not applicable. Implants: arenot applicable. Sign Out: Specimens not collected. All instruments, equipment, possible retained foreign bodies are accounted for. Yes. The post-procedure plan of care has been communicated to the patient or surrogate and to patient's multidisciplinary team (including bedside nurse for hospitalizedpatients). CATHETER PLACEMENT Brand: OPHTHONIX Lot: [id number] Number of Lumens: 1 Type of PICC: Power Injectable PICC Lumen Size: 4 Burundian PLACEMENT TECHNIQUE Lidocaine: Yes, Lidocaine 1% Volume 4 mL Subcutaneous Modified Seldinger Technique Used to Place Line via the Right Basilic Ultrasound Guidance: Yes Number of Attempts at Insertion: 2 Ensured control of guidewire during all aspects of the procedure: Yes Accounted for entire guidewire upon removal: Yes Internal Length: 39 cm External Length: 0 cm Trim Length: 39 cm Mid-Arm Circumference: 25 centimeters Post Insertion Pain Level Related to Proce dure: 0 Action Taken to Address Pain: None needed Verified Placement: Blood return and flushes withease and Tip location system or device indicates the tip is located in the SVC/CAJ. Line was Flushed with 20 mL normal saline Line Secured with: Securement device Sterile Dressing Applied and Dated: Yes Sterile Caps on all Ports Prior to Leaving Procedure Area: Yes, Disinfection caps applied SPECIMENS: None COMPLICATIONS: Patient with baseline nausea/vomiting upon arrival to room. Bedside RN at bedside to provide medication. Patient positioned for comfort. Patient Education Materials: Left at bedside [facility] Central Line Insertion checklist was utilized during this procedure. QUESTIONS or PROBLEMS: Page [phone] SIGNATURE: Eileen Hernandez RN PATIENT NAME: Charles Blandon DATE: 2024 TIME: 11:18 AM PAGER/CONTACT PHONE: XR ABDOMEN 1V SUPINE Result Date: 10/24/2024 * * *Final Report* * * DATE OF EXAM: Oct 24 2024 5:36AM [facility] 5289 - XR ABDOMEN 1V SUPINE / PROCEDURE REASON: Nausea/Vomiting * * * * Physician Interpretation * * * * ABDOMEN, 1 VIEW 10/24/2024 CLINICAL INFORMATION: Nausea/Vomiting. TECHNIQUE: Supine frontal view, 1 image(s) COMPARISON: 10/19/2024 RESULT: See impression. IMPRESSION: Lines, tubes, and devices: Right upper quadrant TIPS, cholecystostomy tube, and surgical clips. Bowel: Gastric gaseous distention. Scattered gas-filled nondilated small bowel and colon. Stripper Apprentice: PSCPatricia Transcribe Date/Time: Oct 24 2024 8:25A Dictated by : AUTUMN CORRALES MD This exam ination was interpreted and the report reviewed and electronically signed by: AUTUMN CORRALES MD on Oct 24 2024 8:26AM EST US DOPPLER COMPLETE Result Date: 10/19/2024 * * *Final Report* * * DATE OF EXAM: Oct 19 2024 4:12PM [facility] [place] 1033 - US DOPPLER COMPLETE / PROCEDURE REASON: Liver transplant * * * * Physician Interpretation * * * * EXAMINATION:LIVER VASCULAR ULTRASOUND WITH DOPPLER IMAGING CLINICAL HISTORY: 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 Images were obtained and stored in a permanent archive. MQ: USLV_1 COMPARISON: CT 10/18/2024, liver ultrasound 10/08/2024 RESULT: Sonographic Findings: Pancreas: Normal sonographic appearance. Portions obscured: tail Liver: Echotexture: Normal, homogeneous. Echogenicity: Normal Surface contour: Smooth Lesions: None. Biliary: No intrahepatic biliary duct dilation. Pneumobilia, stable. CBD: 0.7 cm at the hilum. CBD stent present. Gallbladder: Absent Right Kidney: No hydronephrosis. Spleen: Craniocaudal length 9.3 cm, normal. There are no splenic lesions. Other: Small volume loculated abdominal ascites. HEPATIC VASCULATURE: PORTAL SYSTEM: - Splenic Vein: Patent with antegrade flow (towards the liver). -Main PV: Patent with phasic antegrade flow (towards liver). 38-53 cm/sec -Right anterior PV: Patent with phasic antegrade flow (towards liver). 38 cm/sec -Right posterior PV: Patent with phasic antegrade flow (towards liver). 32 cm/sec -Left PV: Patent with phasic antegrade flow (towards liver). 26 cm/sec HEPATIC ARTERIES: - Main THIBODEAUX: Normal waveform PSV: 70-84 cm/sec. RI: 0.76-0.8 - Right anterior THIBODEAUX: Normal waveform PSV: 66 cm/sec. RI: 0.72 - Right posterior THIBODEAUX: Normal waveform PSV: 66 cm/sec. RI: 0.77 - Left THIBODEAUX: Normal waveform PSV: 73 cm/sec. RI: 0.77 HEPATIC VEINS: -Left: Patent with triphasic waveform. -Middle: Patent with triphasic waveform. -Right: Patent with triphasic waveform. IVC: Patent with normal, phasic wave form. IMPRESSION: Patent hepatic vasculature with appropriately directed flow. 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 Small volume loculated ascites. No splenomegaly. Stable pneumobilia Stripper Apprentice: PSCB Transcribe Date/Time: Oct 19 2024 4:18P Dictated by : STEWART BROUSSARD MD This examination was interpreted and the report reviewed and electronically signed by: AKIKO PHAN MD on Oct 19 2024 4:29PM EST US ABD LIVER VASCULAR TRANSPLANT () Result Date: 10/19/2024 * * *Final Report* * * DATE OF EXAM: Oct 19 2024 3:55PM [facility] [place] 0685 - US ABD LIVER VASCULAR TRANSPLANT / PROCEDURE REASON: Liver transplant * * * * Physician Interpretation * * * * EXAMINATION: LIVER VASCULAR ULTRASOUND WITH DOPPLER IMAGING CLINICAL HISTORY: 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 Images were obtained and stored in a permanent archive. MQ: USLV_1 COMPARISON: CT 10/18/2024, liver ultrasound 10/08/2024 RESULT: Sonographic Findings: Pancreas: Normal sonographic appearance. Portions obscured: tail Liver: Echotexture: Normal, homogeneous. Echogenicity: Normal Surface contour: Smooth Lesions: None. Biliary: No intrahepatic biliary duct dilation. Pneumobilia, stable. CBD: 0.7 cm at the hilum. CBD stent present. Gallbladder: Absent RightKidney: No hydronephrosis. Spleen: Craniocaudal length 9.3 cm, normal. There are no splenic lesions. Other: Small volume loculated abdominal ascites. HEPATIC VASCULATURE: PORTAL SYSTEM: - Splenic Vein: Patent with antegrade flow (towards the liver). -Main PV: Patent with phasic antegrade flow (towards liver). 38-53 cm/sec -Right anterior PV: Patent with phasic antegrade flow (towards liver). 38 cm/sec -Right posterior PV: Patent with phasic antegrade flow (towards liver). 32 cm/sec -Left PV: Dunlap nt with phasic antegrade flow (towards liver). 26 cm/sec HEPATIC ARTERIES: - Main THIBODEAUX: Normal waveform PSV: 70-84 cm/sec. RI: 0.76-0.8 - Right anterior THIBODEAUX: Normal waveform PSV: 66 cm/sec. RI: 0.72 - Right posterior THIBODEAUX: Normal waveform PSV: 66 cm/sec. RI: 0.77 - Left THIBODEAUX: Normal waveform PSV: 73 cm/sec. RI: 0.77 HEPATIC VEINS: -Left: Patent with triphasic waveform. -Middle: Patent with triphasic waveform. -Right: Patent with triphasic waveform. IVC: Patent with normal, phasic wave form. IMPRESSION: Patent hepatic vasculature with appropriately directed flow. 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 Small volume loculated ascites. No splenomegaly. Stable pneumobilia Stripper Apprentice: [facility] Transcribe Date/Time: Oct 19 2024 4:18P Dictated by : STEWART BROUSSARD MD This examination was interpreted and the report reviewed and electronically signed by: AKIKO PHAN MD on Oct 19 2024 4:29PM EST XR ABDOMEN 1V SUPINE Result Date: 10/19/2024 * * *Final Report* * * DATE OF EXAM: Oct 19 2024 2:22PM [facility]289 - XR ABDOMEN 1V SUPINE / PROCEDURE REASON: Abdominal pain * * * * Physician Interpretation * * * * EXAM: KUB ABDOMEN. CLINICAL INFORMATION: Abdominal pain TECHNIQUE: Supine abdomen, 2 image(s) COMPARISON: 10/07/2024, CT dated 10/18/2024 RESULT: See Impression. IMPRESSION: Support lines and tubes: RIGHT mid abdominal catheter present. CBD stent present. Bowelgas pattern: Mildly dilated colon with the transverse colon measuring up to 6.2 cm. This is likely ileus. No significant small bowel dilatation. Calcifications: RIGHT upper quadrant surgical clips. Tr anscriptionist: [facility] Transcribe Date/Time: Oct 19 2024 3:20P Dictated by : AKIKO PHAN MD This examination was interpreted and the report reviewed and electronically signed by: AKIKO PHAN MD onOct 19 2024 3:24PM EST CT ABDOMEN WO IVCON Result Date: 10/18/2024 * * *Final Report* * * DATE OF EXAM: Oct 18 2024 3:27PM [facility] [place] 0534 - CT ABDOMEN WO IVCON / PROCEDURE REASON: Post-operative / post-procedure assessment, symptomatic * * * * Physician Interpretation * * * * EXAMINATION: CT ABDOMEN WITHOUT IV CONTRAST CLINICAL HISTORY: Abdominal pain, post drain placement.Patient is status post liver transplant. Status post drainage of RIGHT hydrothorax on 09/09/2024 TECHNIQUE: Non-IV contrast imaging of the abdomen was performed using standard technique, scanning from just above the dome of the diaphragm to the iliac crest. Unenhanced imaging is limited for the evaluation of some intra-abdominal pathology. MQ: CTAbdWO_3 Contrast: IV: None Oral: 300 ml of Omni [id number] diluted with water CT Radiation dose: Integrated Dose-length product (DLP) for this visit =208 mGy*cm. CT Dose Reduction Employed: Automated exposure control (AEC) COMPARISON: 10/16/2024 RESU LT: Liver: Unenhanced liver allograft is unremarkable. Previously seen geographic area of low-attenuation in segment 4/8 is less well seen without IV contrast, but is overall stable. No definite new hepatic focal lesions on this study. Biliary: Pneumobilia. Biliary stent in place. There has been interval placement of a percutaneous drainage catheter with decompression of the gallbladder fossa collection. Currently the collection measures 2.6 x 1.4 cm (3:46), previously 5.2 x 3.8 cm. Spleen: No splenomegaly. Pancreas: Unremarkable. Adrenals: No mass. Kidneys: Previously administered excreted co ntrast in both collecting systems. No hydronephrosis. GI Tract: No bowel dilation. Lymph Nodes: No lymphadenopathy. Mesentery/peritoneum: Moderate abdominal ascites, similar in volume as compared to prior study. No new focal drainable fluid collections. Retroperitoneum: No mass. Vasculature: No aortic aneurysm. Atherosclerotic calcifications. Patency of hepatic vasculature cannot be established on this unenhanced study. Bones/Soft Tissues: Degenerative changes. Remote healed rib fractures. Lower thorax: Essentially stable RIGHT hydropneumothorax and moderate LEFT pleural effusion. Localizer images: No additional findings. IMPRESSION: Interval placement of a percutaneous drainage catheter with decompression of the gallbladder fossa collection. Moderate volume abdominal ascites, similar to prior study. Essentially stable RIGHT hydropneumothorax and moderate LEFT pleural effusion. Stripper Apprentice: SRINI Transcribe Date/Time: Oct 18 2024 4:19P Dictated by : AKIKO PHAN MD This examination was interpreted and the report reviewed and electronically signed by: AKIKO PHAN MD on Oct 18 2024 4:28PM EST US IMAGING GUIDED DRAIN PLACEMENT PERITONEAL/RETROPERITD Result Date: 10/17/2024 * * *Final Report* * * DATE OF EXAM: Oct 17 2024 5:03PM [facility] 1170 - US DRN PLACE PERIT/RETROP FL BI / PROCEDURE REASON: Liver transplant * * * * Physician Interpretation * * * * PROCEDURE PERFORMED: ULTRASOUND GUIDED DRAIN PLACEMENT PRE-PROCEDURE DIAGNOSIS: Abdominal fluid collection(s) POST- PROCEDURE DIAGNOSIS: Same as pre-procedure diagnosis INDICATION FOR PROCEDURE: gallbladder fossa collection RELEVANT PRIOR STUDIES: CT 10/16/2024 STAFF RADIOLOGIST: Dr. Julio MARKETING DESIGNER(S):Dr. Boss CONSENT: The risks, benefits, treatment options, potential complications and personnelinvolved were discussed with the patient. All questions were answered and consent was obtained. The patient indicated willingness to proceed. The staff physician personally verified consent. TIME OUT: A time out was performed immediately prior to procedure start with the nursing, anesthesia and interventional team, correctly identifying the patient name, date of , procedure, anatomy (including marking of site and side), patient position, procedure consent form, relevant diagnostic and radiology test results, antibiotic administration, safety precautions, and procedure-specific equipment needs. RESULT: PROCEDURE: After performing the time out, the abdominal fluid collection was localized with ultrasound, images were obtained and archived. The right upper quadrant was prepped and draped in the usual sterile fashion. Under ultrasound guidance, an 18 gauge trochar needle was advanced into the collection using a transhepatic approach. Then, a guide wire was inserted and the tract was serially dilated to 9 [place]ian. A 10 Burundian locking pigtail catheter was then inserted. Its position was confirmed and then it was locked. A sample was aspirated. The catheter was sutured to the skin with monofilament suture and attached to a J-P bulb drain. The procedure was performed by the: attending radiologist, with an insurance account assistant. The attending radiologist performed the following procedural activities: Supervised entire procedure ANESTHESIA/SEDATION: Conscious sedation: Versed: 1.0 mg IV Fentanyl: 50 mcg IV Local anesthesia: Lidocaine 1%: 17 cc Vital signs were monitored by the nurse. START TIME/TIMEOUT TIME: 16:35 END TIME: 17:00 INTRA- SERVICE (SEDATION) TIME: 30 minutes PATIENT MONITORING: The staff physician personally supervised and directed an independent trained observer who assisted in monitoring the patient?s level of consciousness and physiological status throughout the procedure. SIGNIFICANT COMPLICATIONS: None MINOR COMPLICATIONS: None SIGN-OUT DISCUSSION: Completed ESTIMATED BLOOD LOSS: Trace SPECIMENS: 40 cc of cloudy bilious fluid aspirated and samples sent to microbiology . Sample also sent for bilirubin and cell count. DRAIN(S): 10 Burundian pigtail drain IMPRESSION: ULTRASOUND GUIDED TRANSHEPATIC DRAIN PLACEMENT IN GALLBLADDER FOSSA COLLECTION. Stripper Apprentice: PSCB Transcribe Date/Time: Oct 17 2024 5:16P Dictated by : AMARILIS BOSS MD This examination was interpreted and the report reviewed and electronically signed by: EVERTON JULIO MD on2024 5:24PM EST ECHO Result Date: 10/17/2024 Echocardiography Report: Transthoracic Echo Main [facility] Bedside Date of service: 10/17/2024 11:11:17 AM ANALYST Ordering physician: BRANDI ALARCON Exam indication: Shortness of Breath Technologist: Ria Weaver Interpreting physician: Lena Whalen MD PATIENT: Name: MR. CHARLES BLANDON : 1955 Age: 69 years Gender: M History of hypertension and chronic kidney disease. Previous cardiovascular interventions: Liver transplant Primary rhythm: sinus. Height: 175.30 cm BSA: 1.82 m??? Weight: 67.80 kg BMI: 22.1 kg/m??? Heart rate 78 bpm Blood pressure 136/79 mmHgTechnically difficult exam due to body habitus and suboptimal positioning. Color Doppler was utilized to interrogate the cardiac valves assessed and spectral Doppler was utilized to determine the flow velocities and pressure gradients reported in this exam. MEASUREMENTS: Value Indexed Normal LV ID (diastole) 4.8 cm (2D) 2.62 cm/m??? LV ID (systole) 3.1 cm (2D) 1.73 cm/m??? IVS, leaflet tips 1.1 cm (2D) Posterior wall thickness 1.1 cm (2D) Left ventricular mass 190 g (2D) 105 g/m??? Ejection Fraction 55 % (visual est.) EF > 52 FINDINGS: LEFT VENTRICLE The left ventricle is normal in size. Left ventricular systolic function is normal. Left ventricular diastolic function was not evaluated due to limited. Mitral annular lateral E/e': 5.7. Mitral annular septal E/e': 9.3. Wall Motion: All scored segments are normal. RIGHT VENTRICLE Estimated right ventricular systolic pressure is not reported due to an insufficient tricuspid regurgitation signal. Estimated right atrial pressure is 8 mmHg based on IVC assessment. RIGHT ATRIUM Inferior Vena Cava: The inferior vena cava appears normal measuring 1.5 cm. The vessel decreases less than 50 percent with inspiration. MITRAL VALVE There is tr waldo mitral valve regurgitation. There is mild thickening. The pressure half time is 54 msec. The peak mitral E/A ratio is 0.99. The average mitral E/e' ratio is 7.5. The mitral flow deceleration timeis 187 msec. TRICUSPID VALVE There is trace tricuspid valve regurgitation. There is no thickening. AORTIC VALVE There is no aortic valve regurgitation. Tricuspid aortic valve. There is mild thickening. There is mild calcification. The peak gradient is 6 mmHg (peak velocity = 118.1 cm/s). PULMONIC VALVE The pulmonic valve was not seen or not interrogated. There is trace pulmonic valve regurgitation. PERICARDIUM There is no pericardial effusion. There is a right pleural effusion. There is an epica rdial fat pad. CONCLUSIONS: - Technically difficult exam due to body habitus and suboptimal positioning. - Exam indication: Shortness of Breath - The left ventricle is normal in size. Left ventricular systolic function is normal. EF = 55 ??? 5% (visual est.) - Aortic sclerosis. - Exam was compared with the prior echocardiographic exam performed on 09/21/2024. Right pleural effusion seen. * * * Final * * * [employer] : [id number]^[employer]^SI^SUID CT ABD/PEL W IVCON Result Date: 10/16/2024 * * *Final Report* * * DATE OF EXAM: Oct 16 2024 12:48PM [facility] [place] 0530 - CT ABD/PEL W IVCON / PROCEDURE REASON: Abnormal ERCP * * * * Physician Interpretation * * * * EXAMINATION: CT ABDOMEN AND PELVIS WITH IV CONTRAST CLINICAL HISTORY: EtOH cirrhosis/HCC, s/p DCD-OLT and drainage of right hydrothorax on 09/09/2024. Admitted for worsening abdominal distention, ascites. Concern for possible portal vein thrombus noncontrast CT. Underwent ERCP 10/15/2024 which demonstrated postoperative stricture, possible contained bile leak from the cystic duct, biliary pus/stones. TECHNIQUE: CT of the abdomen and pelvis was performed using standard technique, scanning from just above the dome of the diaphragm to the symphysis pubis. MQ: CTAP_3 Contrast: IV: 100 ml of Omnipaque 350 Oral: 300 ml of Omni 350 10-25ml diluted with water CT Radiation dose: Integrated Dose-length product (DLP) forthis visit = 639 mGy*cm. CT Dose Reduction Employed: mAs-kVp adjusted based on patient size-age COMPARISON: CT abdomen/pelvis 10/07/2024 RESULT: Liver: * Liver transplant. Mild periportal edema. * Slight interval decreased size of geographic area of low-attenuation in segments 4/8 since 10/07/2024 counting for differences of technique. Possibly resolving infarct versus inflammation. No new hepatic lesions. Biliary: * Cholecystectomy. 5.2 x 3.8 cm collection in the gallbladder fossa (3:59) containing small amount of contrast, likely corresponding with leak identified on recent ERCP. * CBD stent in place. * No biliary duct dilation. Trace pneumobilia, presumably postoperative. Spleen: No mass. No splenomegaly. Pancreas: No mass or duct dilation. Adrenals: No mass. Kidneys: No mass, calculus or hydronephrosis. GI tract: Few borderline and mildly dilated fluid and gas filled loops of small bowel without discrete transition point. No wall thickening. Diverticulosis. Lymph nodes: No abdominalor pelvic lymphadenopathy. Mesentery/Peritoneum: Moderate volume ascites. No drainable collections.Diffuse mesenteric edema. Retroperitoneum: No mass. Vasculature: - Abdominal aorta and iliac arteries: Atherosclerotic calcifications without aneurysm. - Celiac and SMA: Patent without stenosis. - Portal venous system (SMV, splenic vein, portal vein and branches): Patent. - Hepatic veins: Patent. - Other: Hepatic artery and anastomosis appears patent. Pelvis: Moderate ascites. No organized collections. No mass. Bones/Soft Tissues: Unchanged [id number] fractures. No acute osseous abnormalities. Ascites within right inguinal hernia. Diffuse bilateral edema. Lower thorax: Stable bilateral pleural effusions, partially loculated on the right with hydropneumothorax. Localizer images: No additional findings. IMPRESSION: 5.2 cm collection in the gallbladder fossa with small amount of contrast, likely contained bile leak. Stable to slightly decreased size of geographic low-attenuation in the right hepatic lobe, possibly inflammatory or evolving infarct. Moderate volume abdominopelvic ascites. Stable right hydropneumothorax and bilateral pleural effusions. Stripper Apprentice: SRINI Transcribe Date/Time: Oct 16 2024 1:06P Dictated by : JIM ANAYA MD This examination was interpreted and the report reviewed and electronically signed by: EVERTON JULIO MD on Oct 16 2024 2:07PM EST WOUND CARE: Wound Management Orders (From admission, onward) Start Ordered 11/01/24 1400 Wound Management: Use Associated Wounds location (ALL BONY AREAS); Wound prevention Weekly Comments: Apply foam. Assess under foam with each skin assessment. Question Answer Comment Wound Location Use Associated Wounds location [place] Wound Management Wound prevention 10/31/24 1115 10/31/24 0933 Wound Management: Use Associated Wounds location (ALL WOUNDS/PREVENTION); Wound care per algorithm Per algorithm Question Answer Comment Wound Location Use Associated Wounds location ALL WOUNDS/PREVENTION Wound Management Wound care per algorithm 10/31/24 0932 DIET: Adult Diet Therapeutic Diet; 2 g Potassium Restriction; 7 Regular (Regular Texture); 0 Thin (All Liquids) ACTIVITY/PRECAUTIONS: - Falls precautions - Weight bearing restriction: WBAT - Pt was instructed to report to PCP or local ER if experiencing any n/v, fever or chills, sudden weakness or worsening of pain, sudden confusion, or for any change or concerns in medical condition. Pt also advised that any falls--especially hitting of head--warrant immediate medical evaluation. Pt informed that failure to seek immediate medical attention in any of the aforementioned instances could result in significant morbidity and/or . INFORMATION PROVIDED TO THE PATIENT AND FAMILY: - After Visit Summary Provided by the RN - DC instructions completed and provided - If applicable, wound care instructions and supplies provided - DC medication reconciliation completed and educated with patient/family - DC summary forwarded to referring physicians MEDICAL EQUIPMENT: THERAPY DISCHARGE INSTRUCTIONS: PT Discharge Instructions [facility] Rehab, [facility] Physical Therapy Discharge Instructions Precautions: None Discharge Location and Supervision/Assist: The following level of supervision is recommended: Supervision with walking and stairs Current Mobility Status: Transfers: independent (supervision for car transfer) Walking: supervision with walker Stair Climbing: hands-on assistance with handrail Home Exercise Program: Continue following the exercise program that was instructed to you by your therapist prior to discharge. PT Follow up Recommendations: Home PT services Diagnosis Specific Education Resources: [employer] ([employer]) [facility] Chapter Web: [email or web address] Chapter Web: [email or web address]/chapters/active-chapters/item/hirg-ooxow-yyvvob.html Home Safety: Remove throw rugs. Have adequate lighting. Remove objects from walkways. Ensure your smoke detectors are working. Do not transfer on a wet surface. Wear non-skid footware. Consider Life Alert or having cell phone available at all times. Take your time, no rushing! Home set up recommendations: Increase lighting in and around your home. A nightlight in the bedroom is advised if you may need to get up to go to the bathroom during the night. In the bedroom, consider adding a bed rail to assist when getting out of bed. Be sure to keep the phone within arm's reach. In the bathroom, use rubber mats in the shower or tub. Consider installing grab bars. Remove throw rugs in your home. Put everyday items on the lowest shelves to avoid using stepstools and chairs. Ask a relative or friend to rotate seasonal items in and out for easy access. Additional Information: Refer to physician before returning to work or driving. Please refer to your [facility] Resource Binder for further information if needed. Thank you for your participation in therapy at [facility]! You have made good progress throughout your stay. Please follow the following recommendations with all mobility and good luck with your next phase of rehabilitation! Keep working hard! PATIENCE HAYES, PT OT Discharge Instructions Current functional status and/or level of assist required for Activities of Daily Living upon discharge: Oral Care: You can complete this activity alone if seated and You can perform this activity standing if you have someone nearby in case you need some help. Dressing: You will need some assistance to set-up this activity, You can complete upper body dressing alone if seated, You can complete lower body dressing seated on edge of bed or chair and stand topull up pants alone, and You may need some assistance to get started and to pull up your pants. Bathing: You will need someone to help you get on the tub/shower seat and help to get your legs over the tub. You will need this same help to safely get out of the tub/shower also, You will need someone to steady you as you get into the shower and sit down on the shower seat. You will also need help to get out of the shower safely, After you are safely seated in the shower/tub, you will need someone to help you wash your back, legs and hip area, and After you have washed, you will need some occasional help to safely dry your body. Toileting: You will need someone to steady you while you take care of your hygiene during toiletingand You will be able to transfer to the toilet, manage your clothing and hygiene with use of grab bar for stabilization by yourself. Precautions: Fall risk during ADLs: Increase lighting in and around your home. A nightlight in the bedroom is advised if you may need to get up to go to the bathroom during the night, Place a bed side commode next to your bed to avoid walking to the bathroom during the night, Toileting urgency is the sudden andintense feeling of the need to use the toilet. This feeling can lead to rushing, stumbling and falls. Set a scheduled reminder to go to the toilet every two hours to avoid this situation, In the bedroom, consider adding a bed rail to assist when getting out of bed. Be sure to keep the phone within arm's reach, In the bathroom, use rubber mats in the shower or tub. Consider installing grab bars, Remove throw rugs in your home, Keep stairs clutter-free. Install lights at the top and bottom to increase visibility. Add a second handrail to stairs. This will improve your balance on both sides, andIn the kitchen, put everyday items on the lowest shelves to avoid using stepstools and chairs. Ask a relative or friend to rotate seasonal items in and out for easy access. Skin Checks: Perform daily skin checks to buttocks to ensure good skin quality. Home Exercise Program: Continue following the exercise program that was instructed to you by your therapist prior to discharge. FOLLOW-UP PLANS: Post-Hospital Rehab Orders: Home Health physical therapy, occupational therapy, social work case manager, and nursing 3x week Plan of Treatment Upcoming Encounters Date Type Department Care Team (Latest Contact Info) Description 11/21/2024 4:00 PM EDT Office Visit Transplant Center [address] [address] [place] LASHAWN EILEEN 11/21/2024 5:40 PM EDT Appointment MRI Q [address] [address] Compression fracture of cervical spine, non-traumatic, with delayed healing, subsequent encounter [M48.52XG] 11/21/2024 6:20 PM EDT Appointment MRI Q [address] [address] Compression fracture of cervical spine, non-traumatic, with delayed healing, subsequent encounter [M48.52XG] 11/21/2024 7:00 PM EDT Appointment MRI Q [address] [address] Compression fracture of cervical spine, non-traumatic, with delayed healing, subsequent encounter [M48.52XG] 02/03/2025 9:00 AM EDT [facility] Neurology [address] [place] [address] Devyn Roach MD [address] [place] [address] Vertigo [R42] 02/10/2025 11:00 AM EDT Appointment Gastroenterology [address] [address] Jane Correia MD [address] [place] [address] Schedule in about 3 months to remove biliary stent PLEASE SCHEDULE A FOLLOW UP APPOINTMENT WITH YOUR PCP WITHIN 2 WEEKS: Primary Care Provider Other Service Providers Document Coverage Dates Rusty Delgado II, MD (May. 2024February 2024 - Present) [address] [place] [address] Internal Medicine [facility] [address] [place] [address] Follow-up Information Follow up With Specialties Details Why Contact Info [facility] (formerly [facility]ev[facility]) Home Health Services, Home Therapy Services, Home LivingAide Services [address] [facility], [address] [place] [address] David Cruz DO Over 30 min involved in discharge orders, medication reconciliation, DME prescriptions, counseling,face time, floor time and coordination of care. On July 20, 2022, the Centers for Medicare & Medicaid Services (CMS) finalized its Policy and Technical Changes to the Medicare Advantage and Medicare Prescription Drug Benefit Program for () 2023. The final rule increases oversight of Medicare Advantage (MA) plans and seeks to better align MA coverage with Traditional Medicare. The provisions in the final rule are applicable to coverage decisions beginning on 2023. Require MA plans to comply with national coverage determinations (NCD), local coverage determinations (LCD), and general coverage and benefit conditions included in Traditional Medicare laws. These Medicare Advantage statutes and regulations are unambiguous. All MA plans must provide enrolled beneficiaries with coverage of all services available under traditional zhi-uln-ulydhgk Medicare (i.e., Part A and Part B Medicare); Prohibit MA plans from limiting or denying coverage for a Medicare-covered service based on their own internal or proprietary criteria (e.g., InterQual, [place]) in a way that differs from requirements under Traditional Medicare; Limit MA plans' ability to apply [id number] restrictions not found in Traditional Medicare. AnMA plan can only deny coverage based on the site of care if the patient does not meet the established Traditional Medicare coverage criteria required for that setting. This precludes an MA plan from denying coverage (e.g., LTCH) based on its preference for a lower-cost or lower intensity care setting (e.g., SNF); Upon these applicable points in the Medical Advantage Final Ruling, this patient meets ALL CONDITIONS for APPROVAL OF ADMISSION, as this patient would have immediate and unfettered access to this necessary level of care under Traditional Medicare coverage. SUSPECTED CASES OF VIOLATION OF FEDERAL RULES MAY BE REPORTED TO CMS. [1] No Known Allergies documented in this encounter Discharge Instructions * Discharge Instructions* Tiara Sherwood APRN - 11/15/2024 11:09 AM EDT Images from the original note were not included. PHYSICAL MEDICINE AND REHABILITATION DISCHARGE SUMMARY Patient Name: Charles Blandon, 1955 Attending Physician: David Cruz DO Date of Admission: 10/30/2024 Date of Discharge: 11/15/24 Discharge Destination: Home with Home Health Service Organization ([facility] [phone]) Discharge Destination Details : Own Home Discharge condition: stable Discharge Diagnoses: Critical Illness Myopathy Metastatic HCC S/p DCD OLT, 09/09 Biliary stricture of transplanted liver Acute blood loss Anemia, PRBC 09/27 (Crossmatch T and B cell weak positive ), 10/26 Parainfluenza pneumonia infection Fluid overload VRE Biliary stent infection Ascites s/p perihepatic collection aspiration and drain placement, 10/17. 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 Functional Bowel Incontinence Protein Calorie Malnutrition Gait Abnormality Ambulatory Dysfunction ADL Dysfunction Debility Cognitive Impairment Constipation Coordination Deficit Spasticity Skin Wound Neuropathic Pain Chronic Pain Balance Deficits HOSPITAL COURSE DURING INPATIENT REHAB: 69 year old male with PMHx: alcohol-induced cirrhosis, c/b portal HTN, ascites, hepatic encephalopathy (HE), and large esophageal varices (EV), as well as hereditary hemorrhagic telangiectasia (HHT) and Tipton???s esophagus (status post basal cell carcinoma excision in 2017), was recently diagnosed with hepatocellular carcinoma (HCC).Patient presented to the ED on 08/23 due to a sudden increase inconfusion and worsening abdominal bloating. Patient previously evaluated for liver transplant but evaluation was closed due to suspected metastatic HCC in the setting of a thoracic spine lesion. S/p biopsy of T10 lesion on 08/06- path revealed Intraosseous hibernoma. Initially admitted to [facility]. On 08/27:t transferred to MICU for worsening HE, hyponatremia, and elevated ammonia levels. 09/04 Patient evaluated as a recipient for liver transplant and was re-listed for liver transplant . 09/08 Patient'sstatus improved and transferred to the [facility]. His MELD score was 26. Patient evaluated as a recipient for liver transplant. 09/09 s/p DCD OLT. 09/10 Pt was extubated. Post op c/b pleural effusion- rt pigtail cath placed, hyponatremia and acute post op pain 09/16 transferred to [facility]. 09/17 RLQ DANIEL drain #2 was removed. LVUS 09/20: Patent hepatic vasculature with appropriately directed flow. 09/[address] was removed. 09/22 Pt with N/V, abdomen distended. KUB- ileus Pt declined NGT. 09/23 Pt started on CLD 09/24 Diet advanced to full liquid. 09/25 Pt with ongoing bloating, passing flatus and having BMs. He denied N/V. 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 diet advanced to Fiber Controlled. Patient hem 7.0 transfused with 1 unit PRBCs. Patient discharge to IRF 09/29-. On 10/07: Patient transported for CT of abdomen. Noted to have an ileus and ascites. Patientwas sent out to ED for further evaluation and management. Admitted under liver transplant service. CT of brain was negative.10/08 Pt continued to have swelling in BLE and abdomen. Pt reported SOB and not using oxygen. Slurred speech had improved with c/o of increased diarrhea. CT chest shows Moderate-sized loculated right hydropneumothorax; the pneumothorax .Interval increase in volume of a low-attenuation, medium-sized left pleural effusion. LVUS shows patent liver vasculature, Hgb 7.3, with no signs of bleeding and lasix was changed to IV for fluid overload. Positive for Parainfluenza. Placed on 2L via NC due to continued SOB on 10/09. Stopped Acyclovir and started Valcyte. 10/10: lasix and albumin IV x1. Pulm consult for pleural effusions with continued diuresis. 10/14 Pt was found to have hydropneumothorax and is now s/p thoracentesis 320cc drained 10/15 Pt underwent ERCP for elevated ALP: Biliary tree swept, pus and debris found. Large stone proximal to stenosis could not be removed. Metal stent placed in CBD. 10/17: Pt with ascities, now s/p perihepatic collection aspiration and drainplacement. DANIEL drain x1 RUQ to bulb suction, planned to remain in place until next ERCP. 10/19: KUB showed mildly dilated colon, likely ileus. 10/21:Flomax discontinued. 10/22: neurosurgery consulted for known T7, T8 , T10 and T12 compression fx and worsening back pain no surgical intervention. 10/23: Per ID Biliary stent infection enetroccous IV Daptomycin 700mg Q24hr until 11/12. 10/24 MRI brain was negative for acute abnormality. 10/26: Hgb 7.1, received 1unit of PRBC. 10/29: PT with c/o abd distention; US Liver showed patent hepatic vasculature with appropriately directed flow. Mildly increased multiloculated ascities. per liver team not enough fluid to drain. 10/30: Pt cleared for discharge to ARF. While in the ARU, pt received physical therapy for range of motion, transfer training, endurance/ balance, fall prevention, and gait training with appropriate assistive devices, occupational therapy for activity of daily living/equipment/ functional transfer evaluation and training, and speech thera py for language evaluation and speech re-education. Team conferences were held to monitor progress and tailor program to patients needs. Patient had appropriate pain management, bowel management, sleep management, GI and DVT prophylaxis. Pt was stable throughout ARU course without major medical comp lication. Pt participated in all therapies and continually improved to the point where the patient was deemedsafe and independent enough to perform activities of daily living without the supervision of the ARU. Pt was then discharged after all therapies were complete, discharge instructions were given, and m edications/supplies were dispensed. Refer to discharge instructions. Per Internal Medicine: Assessment/Plan: Hx of Liver transplantation CBD stent Bile leak (s/p perihepatic aspiration and drain placement) Completed daptomycin ERCP done 11/13 Continue Bactrim, Prograf, Valcyte Monitor CMV Continue baby aspirin due to thrombocytosis Ascites survey-small to moderate ascites VRE (vancomycin-resistant Enterococci) infection Continue Daptomycin, monitor CK (10) Cytomegalovirus (CMV) viremia Continue Valcyte Follow CMV levels qMon Fluid overload Lasix on hold / RENATE Trans daily weights RENATE No retention on bladder scans Lasix held Given 500 NS bolus UA is negative renal sono no acute process F/u with nephrology Nausea & vomiting Ileus without SBO Abdominal distention (small ascites) Continue regular diet Continue bowel regimen Zofran PRN KUB-non obstructive, gas filled loops Simethicone 4x daily Chronic bilateral low back pain without sciatica History of T11 and T12 compression fractures Consulted Neurosurgery - not an appropriate surgical candidate Pain control PT/OT Lumbar x-ray-no acute abnormalities Vertigo CT brain 10/07: negative MRI brain 10/24: negative for acute abnormality follow up with Vestibular Neurologist, Dr. Roach Moderate-sized loculated right hydropneumothorax. Medium-sized left pleural effusion RVP (+) parainfluenza 3 S/p left thoracentesis 10/14: 320 cc drained, culture NGTD Stable, currently on room air Anemia due to multiple mechanisms Monitor Severe protein-calorie malnutrition Continue regular diet Nutrition following GERD (gastroesophageal reflux disease) Continue pepcid BID DVT ppx; Heparin BID PHYSICAL EXAM ON DAY OF DISCHARGE: (Retired) Vitals (last 3 days) Date/Time Temp Pulse Resp BP SpO2 Weight 11/15/24 0756 97 ??F (36.1 ??C) 82 17 124/78 96 % -- 11/15/24 0548 -- -- -- 123/76 -- -- 11/15/24 0400 -- -- -- -- -- 146 lb (66.2 kg) 11/14/242054 96.9 ??F (36.1 ??C) 63 17 118/67 97 % -- 11/14/24 1718 -- 60 -- 117/70 -- -- 11/14/24 1226 -- 57 -- 105/65 -- -- 11/14/24 0759 96.9 ??F (36.1 ??C) 60 18 106/63 97 % -- 11/14/24 0400 -- -- -- -- -- 142 lb (64.4 kg) 11/13/24 1849 -- 76 -- 137/79 -- -- 11/13/24 1119 -- 72 -- 117/72 -- -- 11/13/24 0911 -- 90 -- 113/74 91 % -- 11/13/24 0746 97.1 ??F (36.2 ??C) 64 18 114/74 93 % -- 11/13/24 0621 -- 63 -- 151/82 -- -- 11/13/24 0400 -- -- -- -- -- 143 lb (64.9 kg) 11/12/241999 98.2 ??F (36.8 ??C) 62 18 144/80 96 % -- 11/12/24 1711 -- 75 -- 123/68 -- -- 11/12/24 1206 -- 83 -- 126/85 -- -- 11/12/24 0720 98.2 ??F (36.8 ??C) 61 17 119/73 94 % -- 11/12/24 0530 -- 61 -- 106/67 -- -- 11/12/24 0428 -- -- -- -- -- 142 lb 12.8 oz (64.8 kg) General: no acute distress HEENT: op clear with moist oral mucosa HEART: regular rate and rhythm, no murmurs LUNGS: clear to auscultation bilaterally with no wheezes or ronchi. ABDOMEN: soft, non tender, non distended with normoactive bowel sounds SKIN: no rashes, no pressure ulcers EXTREMITIES: no edema or calf tenderness Consultations Physicians: IM, Pulmonology, Cardiology, Nutrition, Nephology Procedures Preformed: N/A FUNCTIONAL CAPACITY PRIOR TO ADMISSION TO ARU: Prior to admission patient was independent with mobility, transfers, and ADLs without use of an assistive device. FUNCTIONAL CAPACITY UPON DISCHARGE FROM ARU: Discharge Summary (since 10/01/2024) PT Current Functional Status: Charles Blandon's current mobility status is the following: mod I for transfers, ambulates short distances w/ RW at mod I, longer distances with CS-CGA and performs 8 stairs with L handrail and CGA-SBA DME recommendation: walker Therapy Recommendation at Discharge: PT Weight Bearing Status: Full - No restrictions throughout RUE: Full weight-bearing LUE: Full weight-bearing RLE: Full weight-bearing LLE: Full weight-bearing Patient needs assistance with the following: Negotiating stairs; Walking and/or mobility; Negotiating ramps or curbs; Use of ambulatory device ; Discharge Summary (since 10/01/2024) OT Current Functional Status: Family Training completed with , Fabiana. Caregiver verbalizes and demonstrates the ability to provide assist as recommended by the treatment team based on the patient's current functional status. Bill should receive supervision at discharge provided by family in the home setting. Recommended that patient receive continued skilled therapies in the home setting to work on endurance and strength. Weight Bearing Status: Full - No restrictions throughout RUE: Full weight-bearing LUE: Full weight-bearing RLE: Full weight-bearing LLE: Full weight-bearing Patient needs assistance with the following: Going out in the community; Activities of daily living ; Discharge Summary (since 10/01/2024) SURVEY RODMAN Current Functional Status: Pt was making slow progress with Fair-poor participation, often argumentative, assists with participation and cueing At this D.C, Pt presents with MCI in areas of Complex Problem Solving (MILD), Executive function (MILD) and Short term recall (SEV). Pt score 24/30 on MoCA. Pt participation has been a barrier and also severity of memory deficits impeding Pt ability to recall deficits, often resulting in combativeness. ALLERGIES: [Allergies] [Allergies] No Known Allergies DISCHARGE MEDICATIONS: Medication List START taking these medications Prescription Last Dose and Time given aspirin 81 MG EC tablet Take 1 tablet (81 mg total) by mouth in the morning. Indications: Acute Heart Attack. Refill: 0 81 mg on November 15, 2024 9:09 AM Buprenorphine 10 MCG/HR patch weekly Commonly known as: LOUANN Place 1 patch (10 mcg total) on the skin every 7 days Indications: Chronic Pain. Refill: 0 Start Taking: November 19, 2024 Ask your nurse or doctor ciprofloxacin 500 MG tablet Commonly known as: CIPRO Take 1 tablet (500 mg total) by mouth in the morning and 1 tablet (500 mg total) before bedtime. Doall this for 9 doses. Indications: Prophylaxis s/p procedure. Refill: 0 500 mg on November 15, 2024 9:10 AM famotidine 20 MG tablet Commonly known as: PEPCID Take 1 tablet (20 mg total) by mouth in the morning and 1 tablet (20 mg total) before bedtime. Refill: 0 20 mg on November 15, 2024 9:10 AM magnesium hydroxide 400 MG/5ML suspension Commonly known as: MILK OF MAGNESIA Take 30 mL by mouth daily as needed for constipation (if patient prefers Oral medication). Refill: 0 magnesium oxide 400 (240-250 Mg) MG tablet Take 2 tablets (800 mg total) by mouth 3 (three) times a day. Refill: 0 800 mg on November 15, 2024 9:08 AM methocarbamol 750 MG tablet Commonly known as: ROBAXIN Take 1 tablet (750 mg total) by mouth 3 (three) times a day as needed for muscle spasms. Refill: 0 750 mg on November 15, 2024 9:16 AM midodrine 10 MG tablet Commonly known as: PROAMATINE Take 1 tablet (10 mg total) by mouth in the morning and 1 tablet (10 mg total) at noon and 1 tablet(10 mg total) in the evening. Refill: 0 10 mg on November 15, 2024 5:41 AM mirtazapine 7.5 MG tablet Commonly known as: REMERON Take 1 tablet (7.5 mg total) by mouth nightly. Refill: 0 7.5 mg on November 14, 2024 8:10 PM multivitamin w/ minerals Tab/Cap tablet Take 1 each (1 tablet total) by mouth in the morning. Refill: 0 1 tablet on November 15, 2024 9:16 AM oxyCODONE 5 MG immediate release tablet Commonly known as: ROXICODONE Take 1-2 tablets (5-10 mg total) by mouth every 6 (six) hours as needed (5mg moderate pain, 10mg severe pain) for up to 9 days Indications: Acute Pain. Max Daily Amount: 40 mg Refill: 0 10 mg on November 15, 2024 9:16 AM pantoprazole 40 MG EC/DR tablet Commonly known as: PROTONIX Take 1 tablet (40 mg total) by mouth in the morning and 1 tablet (40 mg total) in the evening. Takebefore meals. Refill: 0 40 mg on November 15, 2024 9:10 AM simethicone 80 MG chewable tablet Commonly known as: MYLICON Chew 1 tablet (80 mg total) in the morning and 1 tablet (80 mg total) at noon and 1 tablet (80 mg total) in the evening and 1 tablet (80 mg total) before bedtime. Refill: 0 80 mg on November 15, 2024 9:10 AM sulfamethoxazole-trimethoprim 800-160 MG per tablet double-strength Commonly known as: BACTRIM Take 1 tablet by mouth 3 (three) times a week Indications: prophylaxis. Refill: 0 Start Taking: November 18, 2024 1 tablet on November 13, 2024 8:04 AM tacrolimus 5 MG capsule Commonly known as: PROGRAF Take 1 capsule (5 mg total) by mouth in the morning and 1 capsule (5 mg total) before bedtime. Refill: 0 5 mg on November 15, 2024 5:41 AM tamsulosin 0.4 MG capsule Commonly known as: FLOMAX Take 1 capsule (0.4 mg total) by mouth nightly. Refill: 0 0.4 mg on November 14, 2024 8:10 PM traZODone 50 MG tablet Commonly known as: DESYREL Take 1 tablet (50 mg total) by mouth nightly. Refill: 0 50 mg on November 14, 2024 8:10 PM ursodiol 300 MG capsule Commonly known as: ACTIGALL Take 1 capsule (300 mg total) by mouth 3 (three) times a day. Refill: 0 300 mg on November 15, 2024 9:09 AM valGANciclovir 450 MG tablet Commonly known as: VALCYTE Take 2 tablets (900 mg total) by mouth in the morning and 2 tablets (900 mg total) before bedtime. Refill: 0 900 mg on November 15, 2024 9:08 AM LABS/X-RAYS/IMAGING STUDIES while on rehab: CBC with Differential: Recent Labs Lab Units 11/15/24 0530 WBC k/uL 2.45* RBC AUTO m/uL 2.57* HEMOGLOBIN g/dL 7.8* HEMATOCRIT % 25.4* PLATELETS AUTO k/uL 583* MCV fL 98.8 MCH pg 30.4 MCHC g/dL 30.7 [ MG/PHOS: Recent Labs Lab Units 11/15/24 0530 MAGNESIUM mg/dL 2.1 PHOSPHORUS mg/dL 4.7 CMP: Recent Labs Lab Units 11/15/24 0530 SODIUM mmol/L 135* POTASSIUM mmol/L 5.1 CHLORIDE mmol/L 101 CO2 mmol/L 22 BUN mg/dL 17 CREATININE mg/dL 1.52* GLUCOSE mg/dL 88 PROTEIN TOTAL g/dL 5.5* CALCIUM mg/dL 8.6 ALBUMIN g/dL 2.9* BILIRUBIN, TOTAL mg/dL 0.2 ALKALINE PHOSPHATASE U/L 143* ALT U/L 11 AST U/L 20 ANION GAP mmol/L 12 Glucose Last 3 Days: ERCP Result Date: 11/13/2024 Q3 Patient Name: Charles Blandon Procedure Date: 11/13/2024 1:11 PM Date of : 1955 Admit Type: Outpatient Age: 69 Gender: Male Note Status: Finalized Attending MD: Jane Flores MD, [id number] Procedure: ERCP Indications: Common bile duct stone(s), 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 Refer to note in patient chart for documentation of history and physical. Referring Physician: Desiree Cruz (Referring MD) Medicines: General Anesthesia, Cipro 400 mg IV Complications: No immediate complications. Requesting Provider: Procedure: Pre-Anesthesia Assessment: - Prior to the procedure, a History and Physical was performed, and patient medications and allergies were reviewed. The patient's tolerance of previous anesthesia was also reviewed. The risks and benefits of the procedure and the sedation options and risks were discussed with the patient. All questions were answered, and informed consent was obtained. Prior Anticoagulants: The patient has taken no anticoagulant or antiplatelet agents except for aspirin. ASA Grade Assessment: III - A patient with severe systemic disease. After reviewing the risks and benefits, the patient was deemed in satisfactory condition to undergo the procedure. After obtaining informed consent, the scopewas passed under direct vision. Throughout the procedure, the patient's blood pressure, pulse, and oxygen saturations were monitored continuously. The Duodenoscope was introduced through the mouth, and advanced to the duodenum and used to inject contrast into the bile duct. The ERCP was accomplished without difficulty. The patient tolerated the procedure well. Moderate Sedation: General anesthesia was administered by the anesthesia team. Findings: A contestant coordinator film of the abdomen was obtained. Surgical clips were seen in the area of the right upper quadrant of the abdomen. One stent ending in themain bile duct was seen. A percutaneous drain was seen in the subhepatic space. One covered metal stent originating in the biliary tree was emerging from the major papilla. A biliary sphincterotomy had been performed. The sphincterotomy appeared open. The bile duct was deeply cannulated with the 11.5 mm balloon and guidewire. Contrast was injected. I personally interpreted the bile duct images. There was brisk flow of contrast through the ducts. Image quality was excellent. Contrast extended tothe main bile duct. Contrast extended to the hepatic ducts. The biliary tree was swept with an 11.5 mm balloon starting at the bifurcation. Sludge and stones were swept from the duct. All stones were removed. No further filling defects remained. Upon withdrawal of the duodenoscope, the cap was dislodged. A standard gastroscope was used to perform an esophagogastroduodenoscopy. The cap was not found and likely traversed into the small bowel. The mouth and oropharynx were thoroughly evaluated with the gastroscope and digitally and confirmed the cap was not in the oropharynx or mouth prior to extubation. Impression: - One stent from the biliary tree was seen in the major papilla. - Prior biliary sphincterotomy appeared open. - Choledocholithiasis was found. Complete removal was accomplished by balloon extraction. - The biliary tree was swept. Estimated Blood Loss: Estimated blood loss: none. Recommendation: - Discharge patient to a [facility]. - Resume previous diet. - Cipro (ciprofloxacin) 500 mg PO BID for 5 days. - Repeat ERCP for stent removal n 3 months. Procedure Code(s): ---Professional --- 72933, Endoscopic retrograde cholangiopancreatography (ERCP); with removal of calc andrew/debris from biliary/pancreatic duct(s) 96784, Endoscopic catheterization of the biliary ductalsystem, radiological supervision and interpretation Diagnosis Code(s): --- Professional --- Z96.89,Presence of other specified functional implants K80.51, Calculus of bile duct without cholangitis or cholecystitis with obstruction Z09, Encounter for follow-up examination after completed treatment for conditions other than malignant neoplasm Z94.4, Liver transplant status CPT copyright 2020 [employer]. All rights reserved. Attending Participation: I was present and participated during the entire procedure, including non-david portions. Scope In: 2:57:12 PM Scope Out: 3:17:12 PM MD Jane Alexander MD 11/13/2024 3:25:50 PM This report has been signed electronically by Jane Correia MD Number of Addenda: 0 Note Initiated On: 11/13/2024 1:11 PM ERCP Result Date: 11/13/2024 Q3 Patient Name: Charles Blandon Procedure Date: 11/13/2024 1:11 PM Date of : 1955 Admit Type: Outpatient Age: 69 Gender: Male Note Status: Finalized Attending MD: Jane Flores MD, [id number] Procedure: ERCP Indications: Common bile duct stone(s), Benign stricture ofthe common bile duct, Post liver transplant assessment Providers: Jane Correia MD PatientProfile: This is a 69 year old male. Refer to note in patient chart for documentation of history and physical. Referring Physician: Desiree Cruz (Referring MD) Medicines: General Anesthesia, Cipro 400 mg IV Complications: No immediate complications. Requesting Provider: Procedure: Pre-Anesthesia A ssessment: - Prior to the procedure, a History and Physical was performed, and patient medications and allergies were reviewed. The patient's tolerance of previous anesthesia was also reviewed. The risks and benefits of the procedure and the sedation options and risks were discussed with the patient. All questions were answered, and informed consent was obtained. Prior Anticoagulants: The patient has taken no anticoagulant or antiplatelet agents except for aspirin. ASA Grade Assessment: III -A patient with severe systemic disease. After reviewing the risks and benefits, the patient was deemed in satisfactory condition to undergo the procedure. After obtaining informed consent, the scope was passed under direct vision. Throughout the procedure, the patient's blood pressure, pulse, and oxygen saturations were monitored continuously. The Duodenoscope was introduced through the mouth, and advanced to the duodenum and used to inject contrast into the bile duct. The ERCP was accomplished without difficulty. The patient tolerated the procedure well. Moderate Sedation: General anesthesia was administered by the anesthesia team. Findings: A contestant coordinator film of the abdomen was obtained. Surgical clips were seen in the area of the right upper quadrant of the abdomen. One stent ending in the m ain bile duct was seen. A percutaneous drain was seen in the subhepatic space. One covered metal stent originating in the biliary tree was emerging from the major papilla. A biliary sphincterotomy had been performed. The sphincterotomy appeared open. The bile duct was deeply cannulated with the 11.5 mm balloon and guidewire. Contrast was injected. I personally interpreted the bile duct images. There was brisk flow of contrast through the ducts. Image quality was excellent. Contrast extended to the main bile duct. Contrast extended to the hepatic ducts. The biliary tree was swept with an 11.5 mm balloon starting at the bifurcation. Sludge and stones were swept from the duct. All stones were r emoved. No further filling defects remained. Upon withdrawal of the duodenoscope, the cap was dislodged. A standard gastroscope was used to perform an esophagogastroduodenoscopy. The cap was not found and likely traversed into the small bowel. The mouth and oropharynx were thoroughly evaluated withthe gastroscope and digitally and confirmed the cap was not in the oropharynx or mouth prior to extubation. Impression: - One stent from the biliary tree was seen in the major papilla. - Prior biliary sphincterotomy appeared open. - Choledocholithiasis was found. Complete removal was accomplished by balloon extraction. - The biliary tree was swept. Estimated Blood Loss: Estimated blood loss: none. Recommendation: - Discharge patient to a [facility]. - Resume previous diet. - Cipro (ciprofloxacin) 500 mg PO BID for 5 days. - Repeat ERCP for stent removal n 3 months. Procedure Code(s): --- Professional --- 56759, Endoscopic retrograde cholangiopancreatography (ERCP); with removal of calculi/ debris from biliary/pancreatic duct(s) 08550, Endoscopic catheterization of the biliary ductal system, radiological supervision and interpretation Diagnosis Code(s): --- Professional --- Z96.89, Presence of other specified functional implants K80.51, Calculus of bile duct without cholangitis or cholecystitis with obstruction Z09, Encounter for follow-up examination after completed treatment for conditions other than malignant neoplasm Z94.4, Liver transplant status CPT copyright 2020 [employer]. All rights reserved. Attending Participation: I was present and participated during the entire procedure, including non-david portions. Scope In: 2:57:12 PM Scope Out: 3:17:12 PM MD Jane Alexander MD 11/13/2024 3:25:50 PM This report has been signed electronically by Jane Correia MD Number of Addenda: 0 Note Initiated On: 11/13/2024 1:11 PM US renal complete Result Date: 11/08/2024 * * *Final Report* * * DATE OF EXAM: Nov 08 2024 1:00PM S0U 1055 - US KIDNEY/BLADDER / PROCEDURE REASON: RENATE * * * * Physician Interpretation * * * * EXAMINATION: RENAL ULTRASOUND CLINICAL HISTORY: Acute kidney injury. TECHNIQUE: Sonography of the kidneys and urinary bladder was performed. Images were obtained and stored in a permanent archive. MQ: UR_1 COMPARISON: None RESULT: Right Kidney: -Renal length: 10.6 cm -Parenchyma: Normal parenchymal echogenicity. Normal parenchymal thickness. -Collecting system: No hydronephrosis. -Calculus: No echogenic, shadowing calculus.-Lesion: None. Left Kidney: -Renal length: 10.1 cm -Parenchyma: Normal parenchymal echogenicity. Normal parenchymal thickness. -Collecting system: No hydronephrosis. -Calculus: No echogenic, shadowing calculus. -Lesion: None. Bladder: The prevoid urinary bladder volume is 67 cc. Anterior to the urinary bladder a cystic, multiseptated region is identified, likely representing complex fluid. IMPRESSION: Sonographically unremarkable the kidneys. Complex fluid, with septations noted in the anterior lower pelvis. Stripper Apprentice: [facility] Transcribe Date/Time: Nov 08 2024 1:49P Dictated by : CHARIS WHALEN MD This examination was interpreted and the report reviewed and electronically signed by:CHARIS WHALEN MD on Nov 08 2024 1:52PM EST US kidneys and bladder Result Date: 11/08/2024 * * *Final Report* * * DATE OF EXAM: Nov 08 2024 1:00PM S0U 1055 - US KIDNEY/BLADDER / PROCEDURE REASON: RENATE * * * * Physician Interpretation * * * * EXAMINATION: RENAL ULTRASOUND CLINICAL HISTORY: Acute kidney injury. TECHNIQUE: Sonography of the kidneys and urinary bladder was performed. Images were obtained and stored in a permanent archive. MQ: UR_1 COMPARISON: None RESULT: Right Kidney: -Renal length: 10.6 cm -Parenchyma: Normal parenchymal echogenicity. Normal parenchymal thickness. -Collecting system: No hydronephrosis. -Calculus: No echogenic, shadowing calculus. -Lesion: None. Left Kidney: -Renal length: 10.1 cm -Parenchyma: Normal parenchymal echogenicity. Normal parenchymal thickness. -Collecting system: No hydronephrosis. -Calculus: No echogenic, shadowing calculus. -Lesion: None. Bladder: The prevoid urinary bladder volume is 67 cc. Anterior to the urinary bladder a cystic, multiseptated region is identified, likely representing complex fluid. IMPRESSION: Sonographically unremarkable the kidneys. Complex fluid, with septations noted in the anterior lower pelvis. Stripper Apprentice: [facility] Transcribe Date/Time: Nov 08 2024 1:49P Dictated by : CHARIS WHALEN MD This examination was interpreted and the report reviewed and electronically signed by:CHARIS WHALEN MD on Nov 08 2024 1:52PM EST XR ABDOMEN 1 VWS Result Date: 11/07/2024 * * *Final Report* * * DATE OF EXAM: Nov 07 2024 2:24PM S0X [id number] - XR ABDOMEN 1V SUPINE / PROCEDURE REASON: ABD PAIN, FEVER, NO RECENT SURGERY * * * * Physician Interpretation * * Clinical Information: Abdominal distention Supine views of the abdomen were obtained. Gas-filled loops of small and large bowel in a nonspecific and nonobstructive pattern. No abnormal abdominal masses are identified. No pathologic calcifications. Common bile duct stent. Surgical clips right upper quadrant. Surgical drain tip within the gallbladder fossa. No acute bony abnormalities are seen. IMPRESSION: Nonspecific, nonobstructive bowel gas pattern. Stripper Apprentice: [facility] Transcribe Date/Time: Nov 07 2024 2:50P Dictated by : AMARILIS MACK MD This examination was interpreted and the report reviewed and electronically signed by: AMARILIS MACK MD on Nov 07 2024 2:52PM EST XR ABDOMEN 1V SUPINE Result Date: 11/07/2024 * * *Final Report* * * DATE OF EXAM: Nov 07 2024 2:24PM S0X 5289 - XR ABDOMEN 1V SUPINE / PROCEDURE REASON: ABD PAIN, FEVER, NO RECENT SURGERY * * * * Physician Interpretation * * Clinical Information: Abdominal distention Supine views of the abdomen were obtained. Gas-filled loops of small and large bowel in a nonspecific and nonobstructive pattern. No abnormal abdominal masses are identified. No pathologic calcifications. Common bile duct stent. Surgical clips right upper quadrant. Surgical drain tip within the gallbladder fossa. No acute bony abnormalities are seen. IMPRESSION: Nonspecific, nonobstructive bowel gas pattern. Stripper Apprentice: [facility] Transcribe Date/Time: Nov 07 2024 2:50P Dictated by : AMARILIS MACK MD This examination was interpreted and the report reviewed and electronically signed by: AMARILIS MACK MD on Nov 07 2024 2:52PM EST US abdomen limited Result Date: 11/06/2024 * * *Final Report* * * DATE OF EXAM: Nov 06 2024 3:45PM S0U 1064 - US ABDOMEN LTD / PROCEDURE REASON: ASCITES SURVEY * * * * Physician Interpretation * * * * Clinical information: Ascites Ascites survey was performed. Images were obtained and stored in a permanent archive. Small to moderate volume ascites within the right lower quadrant, left upper quadrant, and left lower quadrant. Ascites contains multiple septations. Partially visualized small right-sided pleural effusion. Impression: Small to moderate volume ascites containing multiple septations Stripper Apprentice: [facility] Transcribe Date/Time: Nov 06 2024 4:32P Dictated by : AMARILIS MACK MD This examination was interpreted and the report reviewed and electronically signed by: AMARILIS MACK MD on Nov 06 2024 4:33PM EST XR lumbar spine 1 vws Result Date: 11/04/2024 * * *Final Report* * * DATE OF EXAM: Nov 04 2024 3:30PM S0X 5283 - XR LUMBAR 1V / PROCEDURE REASON: 11/24 acute on chronic back pain with hx of compression fractures * * * * Physician Interpretation * * * * Information: Back pain, compression fractures Limited AP only view of the lumbar spine was obtained. Study correlated with CT scan dated 10/24/2024. Compression deformities involving T11 and T12, visualization is limited. No definite lumbar compression fractures. Lumbar disc spaces are grossly maintained. Impression: Limited AP only study with suboptimal visualization of the lumbar spine. No definite lumbar compression fracture. T11 and T12 compression fractures better seen on prior CT scan. Stripper Apprentice: [facility] Transcribe Date/Time: Nov 04 2024 4:31P Dictated by: AMARILIS MACK MD This examination was interpreted and the report reviewed and electronically signed by: AMARILIS MACK MD on Nov 04 2024 4:32PM EST XR CHEST 1 VWS Result Date: 11/04/2024 * * *Final Report* * * DATE OF EXAM: Nov 01 2024 2:39PM S0X 5290 - XR CHEST 1V FRONTAL / PROCEDURE REASON: pleural effusion * * * * Physician Interpretation * * * * EXAMINATION:CHEST RADIOGRAPH (PORTABLE SINGLE VIEW AP) EXAM DATE/TIME: 11/01/2024 2:39 PM INDICATIONS: Shortnessof breath. Pleural effusion MQ: XCPR_5 COMPARISON: 10/14/2024 RESULT: Lines, tubes, and devices: Interval placement of a right PICC line, with the distal tip in the lower SVC/upper atrium. Lungs and pleura: Interval decrease in opacification of the right lower lung zone, compatible with decrease inright pleural effusion and right basilar opacities. Small to moderate amount of airspace opacities still persists in the right lower lung zone; atelectasis/scarring versus infiltrates. Small amount of patchy opacities in the left lower lung zone that could be related to mild subsegmental atelectasis. A tiny left pleural effusion cannot be excluded. Prominence of interstitial markings raising the possibility of mild pulmonary vascular congestion. Cardiomediastinal silhouette: Stable cardiomediastinal silhouette. No acute osseous abnormality. IMPRESSION: Interval decrease in the right pleural effusion and right basilar opacities. Possible mild pulmonary vascular congestion. Stripper Apprentice: [facility] Transcribe Date/Time: Nov 04 2024 8:27A Dictated by : CHARIS WHALEN MD This examination was interpreted and the report reviewed and electronically signed by: CHARIS WHALEN MD on Nov 04 2024 8:28AM EST US abdomen limited Result Date: 11/03/2024 * * *Final Report* * * DATE OF EXAM: Nov 03 2024 1:28PM S0U 1064 - US ABDOMEN LTD / PROCEDURE REASON: evaluate for ascites * * * * Physician Interpretation * * * * EXAMINATION: US ABDOMEN LTD HISTORY: evaluate for ascites TECHNIQUE: Limited evaluation of the abdomen to evaluate for ascites . Images were obtained and stored in a permanent archive. COMPARISON: 10/29/2024 ultrasound RESULT: See Impression. - IMPRESSION: Small to moderate volume of multiloculated ascites with numerous septations is similar to prior study. Stripper Apprentice: [facility] Transcribe Date/Time: Nov 03 2024 2:13P Dictated by : MD YOLANDA This examination was interpreted and the report reviewed and electronically signed by: JIM LUZ MD on Nov 03 2024 2:14PM EST US DOPPLER COMPLETE Result Date: 10/29/2024 * * *Final Report* * * DATE OF EXAM: Oct 29 2024 3:39PM [facility] 1033 - US DOPPLER COMPLETE / PROCEDURE REASON: Liver transplant * * * * Physician Interpretation * * * * EXAMINATION:LIVER VASCULAR ULTRASOUND WITH DOPPLER IMAGING CLINICAL HISTORY: 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 Images were obtained and stored in a permanent archive. MQ: USLV_1 COMPARISON:CT 10/24/2024, ultrasound 10/19/2024. RESULT: Sonographic Findings: Pancreas: Normal sonographic appearance. Portions obscured: tail Liver: Echotexture: Normal, homogeneous. Echogenicity: Normal Surface contour: Smooth Lesions: None. Biliary: No intrahepatic biliary duct dilation. Stable pneumobilia. CBD: 0.8 cm at the hilum. Gallbladder: Prior cholecystectomy. Gallbladder fossa partially obscured with drain in place. Right Kidney: No hydronephrosis. Spleen: Craniocaudal length 9.4 cm, normal. There are no splenic lesions. Other: Moderate volume loculated ascites, increased from prior ultrasound 10/19/2024 HEPATIC VASCULATURE: PORTAL SYSTEM: -Splenic Vein: Patent with antegrade flow (towards the liver). -Main PV: Patent with phasic antegrade flow (towards liver). 44-58 cm/sec. Previously 38-53 cm/sec. -Right anterior PV: Patent with phasic antegrade flow (towards liver). 25.5 cm/sec. Pre viously 30 cm/sec -Right posterior PV: Patent with phasic antegrade flow (towards liver). 30 cm/sec. Previously 32 cm/sec -Left PV: Patent with phasic antegrade flow (towards liver). 19 cm/sec. Previously 26 cm/sec HEPATIC ARTERIES: - Main THIBODEAUX: Normal waveform PSV: 51-57 cm/sec. RI: 0.74-0.75. Previo usly 70-84 cm/sec. RI: 0.76-0.80 - Right anterior THIBODEAUX: Normal waveform PSV: 59 cm/sec. RI: 0.68. Previously 66 cm/sec. RI: 0.72 - Right posterior THIBODEAUX: Normal waveform PSV: 81 cm/sec. RI: 0.74. Previously 66 cm/sec. RI: 0.77 - Left THIBODEAUX: Normal waveform PSV: 60 cm/sec. RI: 0.70. Previously 73 cm/sec. RI: 0.77 HEPATIC VEINS: -Left: Patent with triphasic waveform. -Middle: Patent with triphasic waveform. -Right: Patent with triphasic waveform. IVC: Patent with normal, phasic wave form. IMPRESSION: Patent hepatic vasculature with appropriately directed flow. Mildly increased multiloculated ascites. 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 Images were obtained and stored in a permanent archive. MQ: USLV_1 COMPARISON: CT 10/24/2024, ultrasound 10/19/2024. RESULT: Sonographic Findings: Pancreas: Normal sonographic appearance. Portions obscured: tail Liver: Echotexture: Normal, homogeneous. Echogenicity: Normal Surface contour: Smooth Lesions: None. Biliary: No intrahepatic biliary duct dilation. Stable pneumobilia. CBD: 0.8 cm at the hilum. Gallbladder: Prior cholecystectomy. Gallbladder fossa partially obscured with drain in place. Right Kidney: No hydronephrosis. Spleen: Craniocaudal length 9.4cm, normal. There are no splenic lesions. Other: Moderate volume loculated ascites, increased from p rior ultrasound 10/19/2024 HEPATIC VASCULATURE: PORTAL SYSTEM: -Splenic Vein: Patent with antegradeflow (towards the liver). -Main PV: Patent with phasic antegrade flow (towards liver). 44-58 cm/sec. Previously 38-53 cm/sec. -Right anterior PV: Patent with phasic antegrade flow (towards liver). 25.5 cm/sec. Previously 30 cm/sec -Right posterior PV: Patent with phasic antegrade flow (towards liver). 30 cm/sec. Previously 32 cm/sec -Left PV: Patent with phasic antegrade flow (towards liver). 19 cm/sec. Previously 26 cm/sec HEPATIC ARTERIES: - Main THIBODEAUX: Normal waveform PSV: 51-57 cm/sec. RI: 0.74-0.75. Previously 70-84 cm/sec. RI: 0.76-0.80 - Right anterior THIBODEAUX: Normal waveform PSV: 59 cm/sec. RI: 0.68. Previously 66 cm/sec. RI: 0.72 - Right posterior THIBODEAUX: Normal waveform PSV: 81 cm/sec. RI: 0.74. Previously 66 cm/sec. RI: 0.77 - Left THIBODEAUX: Normal waveform PSV: 60 cm/sec. RI: 0.70. Previously 73 cm/sec. RI: 0.77 HEPATIC VEINS: -Left: Patent with triphasic waveform. -Middle: Patent with triphasic waveform. -Right: Patent with triphasic waveform. IVC: Patent with normal, phasic wave form. IMPRESSION: Patent hepatic vasculature with appropriately directed flow. Mildly increased multiloculated ascites. Stripper Apprentice: [facility] Transcribe Date/Time: Oct 29 2024 3:46P Dictated by : MARIO YU MD This examination was interpreted and the report reviewed and electronically signed by: AMARILIS ADAMSON MD on Oct 29 2024 4:11PM EST MRI BRAIN WO IVCON Result Date: 10/24/2024 * * *Final Report* * * DATE OF EXAM: Oct 24 2024 7:06PM Q [id number] - MRI BRAIN WO IVCON / PROCEDURE REASON: Dizziness, non-specific * * * * Physician Interpretation * * * * EXAMINATION: MRI BRAIN WO IVCON CLINICAL HISTORY: Dizziness TECHNIQUE: Routine noncontrast MRI protocol including diffusion images. MQ: MRBWO_2 COMPARISON: Head CT 10/07/2024 RESULT: Acute Change: There is no evidence of restricted diffusion to suggest an acute infarct. Hemorrhage: No evidence of prior parenchymal hemorrhage on the susceptibility weighted images. Mass Lesion/ Mass Effect: No evidence of an intracranial mass or extra-axial fluid collection. No mass effect. Chronic Change: Extensive patchy confluent T2 FLAIR hyperintense lesions are present throughout the bilateral supratentorial brainand alejandra compatible with sequela of chronic small vessel disease. Moderate diffuse brain volume loss. Ventricles: No evidence of hydrocephalus. Skull Base: Hypothalamic and pituitary region are grossly normal. Craniocervical junction is normal. No significant marrow replacement process. Vasculature: Major intracranial arterial structures, and dural venous sinuses show typical flow void, suggesting patency by spin echo criteria. Other: The visualized paranasal sinuses and mastoid air cells are cl ear. The orbits and extracranial soft tissues are unremarkable. IMPRESSION: No evidence of acute intracranial abnormality. Extensive patchy confluent T2 FLAIR hyperintense lesions are present throughout the bilateral supratentorial brain and alejandra compatible with sequela of chronic small vessel disease. Stripper Apprentice: [facility] Transcribe Date/Time: Oct 24 2024 7:06P Dictated by : JASON ZURITA MD This examination was interpreted and the report reviewed and electronically signed by: JASON ZURITA MD on Oct 24 2024 7:10PM EST CT ABD/PEL W IVCON Result Date: 10/24/2024 * * *Final Report* * * DATE OF EXAM: Oct 24 2024 6:28PM [facility] 0530 - CT ABD/PEL W IVCON / PROCEDURE REASON: Abdominal pain, acute, nonlocalized * * * * Physician Interpretation * * EXAMINATION: CT ABDOMEN AND PELVIS WITH IV CONTRAST CLINICAL HISTORY: 69-year-old man with a history of liver transplant on 09/09/2024, now with vomiting and abdominal pain/distention TECHNIQUE:CT of the abdomen and pelvis was performed using standard technique, scanning from just above the dome of the diaphragm to the symphysis pubis. MQ: CTAP_3 Contrast: Central IV: 100 ml of Omnipaque 350 : ml of CT Radiation dose: Integrated Dose-length product (DLP) for this visit = 402 mGy*cm. CT Dose Reduction Employed: mAs-kVp adjusted based on patient size-age COMPARISON: 10/16/2024 and 10/18/2024 RESULT: Liver: Liver transplant. Mildly decreasing conspicuity and size of ill-defined low-attenuation lesion in the right hepatic lobe (i.e. 3:22), likely resolving infarction/infection. Biliary: No bile duct dilation. Common bile duct stent in place with expected pneumobilia. Cholecystectomy. Residual 4.1 x 2.0 cm collection in the gallbladder fossa (3:45), previously measuring 3.9 x 2.8 cm whenmeasured similarly. Previously well-positioned drain within this collection seen on CT 10/18/2024, has been slightly retracted in the interval, with the pigtail now uncurled, with several of the sideholes now within the liver parenchyma. Spleen: No mass. No splenomegaly. Pancreas: No mass or duct dilation. Adrenals: No mass. Kidneys: No mass, calculus or hydronephrosis. GI tract: A single loop of jejunum in the left upper quadrant measures up to 5 cm, without transition point, and enteric contrast reaching the terminal ileum/cecum.. Colonic diverticulosis, without acute diverticulitis. NG/OG tube terminating at the gastric body, sidehole subdiaphragmatic. Lymph nodes: No abdominal or pelvic lymphadenopathy. Mesentery/Peritoneum: Moderate volume ascites, slightly increased since 10/18/2024. Mild diffuse peritoneal thickening/enhancement. No loculated fluid collection otherwise. Retroperitoneum: No mass. Vasculature: - Abdominal aorta and iliac arteries: Atherosclerotic calcifications without aneurysm. - Celiac and SMA: Patent without stenosis. - Portal venous system (SMV, splenic vein, portal vein and branches): Patent. - Hepatic veins: Patent. Pelvis: No mass or fluid collection. Right inguinal hernia containing ascitic fluid. Bones/Soft Tissues: Severe compression deformities of T12 and L1, unchanged. Diffuse body wall edema. Lower thorax: Moderate left pleural effusion. Small right loculated hydropneumothorax, unchanged. Bibasilar atelectasis. Localizer images: No additional findings. IMPRESSION: Further mild interval decrease in size of gallbladder fossa collection. Of note, the previously well-positioned percutaneous drain is now slightly retracted, with a few of the sideholes now within the hepatic parenchyma. Slightly increased moderate volume ascites, with new peritoneal thi ckening/enhancement, suggestive of peritonitis, perhaps bile peritonitis given somewhat malpositioned percutaneous drain within the known biliary leak. Stripper Apprentice: [facility] Transcribe Date/Time: Oct 24 2024 6:39P Dictated by : MIKE OATES MD This examination was interpreted and the report reviewed and electronically signed by: MIKE OATES MD on Oct 24 2024 6:50PM EST IR VASCULAR ACCESS TEAM PICC INSERTION RADIO Result Date: 10/24/2024 Eileen Hernandez RN 10/24/2024 11:49 AM PICC NURSE INSERTION NOTE DATE OF PROCEDURE: October 24, 2024 TIME OF PROCEDURE: 1100 ORDERING PHYSICIAN: Brandi Alarcon INFORMED CONSENT: Obtained per hospital policy. INDICATION FOR LINE PLACEMENT: COPAT CONDITION OF LINE PLACEMENT: Sterile PRIMARY PROCEDURALIST: Ceci Beauchamp RN MARKETING DESIGNER: Lili Hernandez RN PRE-PROCEDURE REVIEW ALLERGIES No Known Allergies Known History of Upper Venous Thrombosis: No Known History of Permanent Pacemaker or Automated Implanted Cardiac Device: No Previous Breast Surgery of Lymph Node Dissection: No Estimated Glomerular Filtration Rate Date Value Ref Range Status 10/24/2024 95 >=60 mL/min/1.73m Final Comment: Estimated Glomerular Filtration Rate (eGFR) is calculated using the 2020 CKD-EPI creatinine equation. This equation utilizes serum creatinine, sex, and age as parameters. The creatinine assay has traceable calibration to isotope dilution-mass spectrometry. Refer to KDIGO guidelines for clinical interpretation. In patients with unstable renal function, e.g. those with acute kidney injury, the eGFR may not accurately reflect actual GFR. eGFR- Date Value Ref Range Status 10/17/2016 >60 Final History of Renal Disease: CKD, GFR 92 Ultrasound Assessment Complete: Yes PROCEDURE NARRATIVE SAFE PRACTICE Hand Hygiene per Hospital Policy: Yes Skin Preparation Unit Dose Applicator Used: Chloraprep (CHG + alcohol), allowed to dry. Procedure Surface Cleansed with Antimicrobial Wipes: Yes BarriersUsed by Proceduralist and all Assisting Personnel: Yes UNIVERSAL PROTOCOL / SAFETY CHECKLIST Procedure to be Performed: peripherally inserted central catheter Sign In: A Moment of CARE was completed.Appropriate PPE (Personal Protective Equipment) worn by all providers involved with the procedure. Special equipment not required. Patient/Surrogate Stated/Verified: Patient name, Date of , Relevant allergies, and The intended procedure Time Out: Relevant labs, photos, and/or imaging studies have been reviewed. Intended patient and procedure match the source document(s) (e.g. consent, H&P, associated studies [imaging, pathology]) match the intended patient and procedure. Consent obtained and matches the intended procedure. Yes. Correct side/site has been marked and visible. Medications required for this procedure are verified. Fire risk assessed and is not applicable. Implants: arenot applicable. Sign Out: Specimens not collected. All instruments, equipment, possible retained foreign bodies are accounted for. Yes. The post-procedure plan of care has been communicated to the patient or surrogate and to patient's multidisciplinary team (including bedside nurse for hospitalizedpatients). CATHETER PLACEMENT Brand: OPHTHONIX Lot: [id number] Number of Lumens: 1 Type of PICC: Power Injectable PICC Lumen Size: 4 [place] PLACEMENT TECHNIQUE Lidocaine: Yes, Lidocaine 1% Volume 4 mL Subcutaneous Modified Seldinger Technique Used to Place Line via the Right Basilic Ultrasound Guidance: Yes Number of Attempts at Insertion: 2 Ensured control of guidewire during all aspects of the procedure: Yes Accounted for entire guidewire upon removal: Yes Internal Length: 39 cm External Length: 0 cm Trim Length: 39 cm Mid-Arm Circumference: 25 centimeters Post Insertion Pain Level Related to Proc edure: 0 Action Taken to Address Pain: None needed Verified Placement: Blood return and flushes with ease and Tip location system or device indicates the tip is located in the SVC/CAJ. Line was Flushed with 20 mL normal saline Line Secured with: Securement device Sterile Dressing Applied and Dated:Yes Sterile Caps on all Ports Prior to Leaving Procedure Area: Yes, Disinfection caps applied SPECIMENS: None COMPLICATIONS: Patient with baseline nausea/vomiting upon arrival to room. Bedside RN at bedside to provide medication. Patient positioned for comfort. Patient Education Materials: Left at bedside [facility] Central Line Insertion checklist was utilized during this procedure. QUESTIONS or PROBLEMS: Page [phone] SIGNATURE: Eileen Hernandez RN PATIENT NAME: Charles Blandon DATE: October 24, 2024 TIME: 11:18 AM PAGER/CONTACT PHONE: XR ABDOMEN 1V SUPINE Result Date: 10/24/2024 * * *Final Report* * * DATE OF EXAM: Oct 24 2024 5:36AM [facility] [id number] - XR ABDOMEN 1V SUPINE / PROCEDURE REASON: Nausea/Vomiting * * * * Physician Interpretation * * * * ABDOMEN, 1 VIEW 10/24/2024 CLINICAL INFORMATION: Nausea/Vomiting. TECHNIQUE: Supine frontal view, 1 image(s) COMPARISON: 10/19/2024 RESULT: See impression. IMPRESSION: Lines, tubes, and devices: Right upper quadrant TIPS, cholecystostomy tube, and surgical clips. Bowel: Gastric gaseous distention. Scattered gas-filled nondilated small bowel and colon. 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 Images were obtained and stored in a permanent archive. MQ: USLV_1 COMPARISON: CT 10/18/2024, liver ultrasound 10/08/2024 RESULT: Sonographic Findings: Pancreas: Normal sonographic appearance. Portions obscured: tail Liver: Echotexture: Normal, homogeneous. Echogenicity: Normal Surface contour: Smooth Lesions: None. Biliary: No intrahepatic biliary duct dilation. Pneumobilia, stable. CBD: 0.7 cm at the hilum. CBD stent present. Gallbladder: Absent Right Kidney: No hydronephrosis. Spleen: Craniocaudal length 9.3 cm, normal. There are no splenic lesions. Other: Small volume loculated abdominal ascites. HEPATIC VASCULATURE: PORTAL SYSTEM: - Splenic Vein: Patent with antegrade flow (towards the liver). -Main PV: Patent with phasic antegrade flow (towards liver). 38-53 cm/sec -Right anterior PV: Patent with phasic antegrade flow (towards liver). 38 cm/sec -Right posterior PV: Patent with phasic antegrade flow (towards liver). 32 cm/sec -Left PV: Patent with phasic antegrade flow (towards liver). 26 cm/sec HEPATIC ARTERIES: - Main THIBODEAUX: Normal waveform PSV: 70-84 cm/sec. RI: 0.76-0.8 - Right anterior THIBODEAUX: Normal waveform PSV: 66 cm/sec. RI: 0.72 - Right posterior THIBODEAUX: Normal waveform PSV: 66 cm/sec. RI: 0.77 - Left THIBODEAUX: Normal waveform PSV: 73 cm/sec. RI: 0.77 HEPATIC VEINS: -Left: Patent with triphasic waveform. -Middle: Patent with triphasic waveform. -Right: Patent with triphasic waveform. IVC: Patent with normal, phasic wave form. IMPRESSION: Patent hepatic vasculature with appropriately directed flow. 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 Small volume loculated ascites. No splenomegaly. Stable pneumobilia Stripper Apprentice: [facility] Transcribe Date/Time: Oct 19 2024 4:18P Dictated by : STEWART BROUSSARD MD This examination was interpreted and the report reviewed and electronically signed by: AKIKO PHAN MD on Oct 19 2024 4:29PM [facility] US ABD LIVER VASCULAR TRANSPLANT () Result Date: 10/19/2024 * * *Final Report* * * DATE OF EXAM: Oct 19 2024 3:55PM [facility] [place] 0685 - [facility] LIVER VASCULAR TRANSPLANT / PROCEDURE REASON: Liver transplant * * * * Physician Interpretation * * * * EXAMINATION: LIVER VASCULAR ULTRASOUND WITH DOPPLER IMAGING CLINICAL HISTORY: 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 Images were obtained and stored in a permanent archive. MQ: USLV_1 COMPARISON: CT 10/18/2024, liver ultrasound 10/08/2024 RESULT: Sonographic Findings: Pancreas: Normal sonographic appearance. Portions obscured: tail Liver: Echotexture: Normal, homogeneous. Echogenicity: Normal Surface contour: Smooth Lesions: None. Biliary: No intrahepatic biliary duct dilation. Pneumobilia, stable. CBD: 0.7 cm at the hilum. CBD stent present. Gallbladder: Absent RightKidney: No hydronephrosis. Spleen: Craniocaudal length 9.3 cm, normal. There are no splenic lesions. Other: Small volume loculated abdominal ascites. HEPATIC VASCULATURE: PORTAL SYSTEM: - Splenic Vein: Patent with antegrade flow (towards the liver). -Main PV: Patent with phasic antegrade flow (towards liver). 38-53 cm/sec -Right anterior PV: Patent with phasic antegrade flow (towards liver). 38 cm/sec -Right posterior PV: Patent with phasic antegrade flow (towards liver). 32 cm/sec -Left PV: Dunlap nt with phasic antegrade flow (towards liver). 26 cm/sec HEPATIC ARTERIES: - Main THIBODEAUX: Normal waveform PSV: 70-84 cm/sec. RI: 0.76-0.8 - Right anterior THIBODEAUX: Normal waveform PSV: 66 cm/sec. RI: 0.72 - Right posterior THIBODEAUX: Normal waveform PSV: 66 cm/sec. RI: 0.77 - Left THIBODEAUX: Normal waveform PSV: 73 cm/sec. RI: 0.77 HEPATIC VEINS: -Left: Patent with triphasic waveform. -Middle: Patent with triphasic waveform. -Right: Patent with triphasic waveform. IVC: Patent with normal, phasic wave form. IMPRESSION: Patent hepatic vasculature with appropriately directed flow. 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 Small volume loculated ascites. No splenomegaly. Stable pneumobilia Stripper Apprentice: [facility] Transcribe Date/Time: Oct 19 2024 4:18P Dictated by : STEWART BROUSSARD MD This examination was interpreted and the report reviewed and electronically signed by: AKIKO PHAN MD on Oct 19 2024 4:29PM EST XR ABDOMEN 1V SUPINE Result Date: 10/19/2024 * * *Final Report* * * DATE OF EXAM: Oct 19 2024 2:22PM [facility] [id number] - XR ABDOMEN 1V SUPINE / PROCEDURE REASON: Abdominal pain * * * * Physician Interpretation * * * * EXAM: KUB ABDOMEN. CLINICAL INFORMATION: Abdominal pain TECHNIQUE: Supine abdomen, 2 image(s) COMPARISON: 10/07/2024, CT dated 10/18/2024 RESULT: See Impression. IMPRESSION: Support lines and tubes: RIGHT mid abdominal catheter present. CBD stent present. Bowelgas pattern: Mildly dilated colon with the transverse colon measuring up to 6.2 cm. This is likely ileus. No significant small bowel dilatation. Calcifications: RIGHT upper quadrant surgical clips. Tr anscriptionist: [facility] Transcribe Date/Time: Oct 19 2024 3:20P Dictated by : AKIKO PHAN MD This examination was interpreted and the report reviewed and electronically signed by: AKIKO PHAN MD onOct 19 2024 3:24PM EST CT ABDOMEN WO IVCON Result Date: 10/18/2024 * * *Final Report* * * DATE OF EXAM: Oct 18 2024 3:27PM [facility] 0534 - CT ABDOMEN WO IVCON / PROCEDURE REASON: Post-operative / post-procedure assessment, symptomatic * * * * Physician Interpretation * * * * EXAMINATION: CT ABDOMEN WITHOUT IV CONTRAST CLINICAL HISTORY: Abdominal pain, post drain placement.Patient is status post liver transplant. Status post drainage of RIGHT hydrothorax on 09/09/2024 TECHNIQUE: Non-IV contrast imaging of the abdomen was performed using standard technique, scanning from just above the dome of the diaphragm to the iliac crest. Unenhanced imaging is limited for the evaluation of some intra-abdominal pathology. MQ: CTAbdWO_3 Contrast: IV: None Oral: 300 ml of Omni [id number] diluted with water CT Radiation dose: Integrated Dose-length product (DLP) for this visit =208 mGy*cm. CT Dose Reduction Employed: Automated exposure control (AEC) COMPARISON: 10/16/2024 RESU LT: Liver: Unenhanced liver allograft is unremarkable. Previously seen geographic area of low-attenuation in segment 4/8 is less well seen without IV contrast, but is overall stable. No definite new hepatic focal lesions on this study. Biliary: Pneumobilia. Biliary stent in place. There has been interval placement of a percutaneous drainage catheter with decompression of the gallbladder fossa collection. Currently the collection measures 2.6 x 1.4 cm (3:46), previously 5.2 x 3.8 cm. Spleen: No splenomegaly. Pancreas: Unremarkable. Adrenals: No mass. Kidneys: Previously administered excreted co ntrast in both collecting systems. No hydronephrosis. GI Tract: No bowel dilation. Lymph Nodes: No lymphadenopathy. Mesentery/peritoneum: Moderate abdominal ascites, similar in volume as compared to prior study. No new focal drainable fluid collections. Retroperitoneum: No mass. Vasculature: No aortic aneurysm. Atherosclerotic calcifications. Patency of hepatic vasculature cannot be established on this unenhanced study. Bones/Soft Tissues: Degenerative changes. Remote healed rib fractures. Lower thorax: Essentially stable RIGHT hydropneumothorax and moderate LEFT pleural effusion. Localizer images: No additional findings. IMPRESSION: Interval placement of a percutaneous drainage catheter with decompression of the gallbladder fossa collection. Moderate volume abdominal ascites, similar to prior study. Essentially stable RIGHT hydropneumothorax and moderate LEFT pleural effusion. Stripper Apprentice: SRINI Transcribe Date/Time: Oct 18 2024 4:19P Dictated by : AKIKO PHAN MD This examination was interpreted and the report reviewed and electronically signed by: AKIKO PHAN MD on Oct 18 2024 4:28PM EST US IMAGING GUIDED DRAIN PLACEMENT PERITONEAL/RETROPERITD Result Date: 10/17/2024 * * *Final Report* * * DATE OF EXAM: Oct 17 2024 5:03PM [facility] [id number] - US DRN PLACE PERIT/RETROP FL BI / PROCEDURE REASON: Liver transplant * * * * Physician Interpretation * * * * PROCEDURE PERFORMED: ULTRASOUND GUIDED DRAIN PLACEMENT PRE-PROCEDURE DIAGNOSIS: Abdominal fluid collection(s) POST- PROCEDURE DIAGNOSIS: Same as pre-procedure diagnosis INDICATION FOR PROCEDURE: gallbladder fossa collection RELEVANT PRIOR STUDIES: CT 10/16/2024 STAFF RADIOLOGIST: Dr. Julio MARKETING DESIGNER(S):Dr. Boss CONSENT: The risks, benefits, treatment options, potential complications and personnelinvolved were discussed with the patient. All questions were answered and consent was obtained. The patient indicated willingness to proceed. The staff physician personally verified consent. TIME OUT: A time out was performed immediately prior to procedure start with the nursing, anesthesia and interventional team, correctly identifying the patient name, date of , procedure, anatomy (including marking of site and side), patient position, procedure consent form, relevant diagnostic and radiology test results, antibiotic administration, safety precautions, and procedure-specific equipment needs. RESULT: PROCEDURE: After performing the time out, the abdominal fluid collection was localized with ultrasound, images were obtained and archived. The right upper quadrant was prepped and draped in the usual sterile fashion. Under ultrasound guidance, an 18 gauge trochar needle was advanced into the collection using a transhepatic approach. Then, a guide wire was inserted and the tract was serially dilated to 9 Burundian. A 10 Burundian locking pigtail catheter was then inserted. Its position was confirmed and then it was locked. A sample was aspirated. The catheter was sutured to the skin with monofilament suture and attached to a J-P bulb drain. The procedure was performed by the: attending radiologist, with an insurance account assistant. The attending radiologist performed the following procedural activities: Supervised entire procedure ANESTHESIA/SEDATION: Conscious sedation: Versed: 1.0 mg IV Fentanyl: 50 mcg IV Local anesthesia: Lidocaine 1%: 17 cc Vital signs were monitored by the nurse. START TIME/TIMEOUT TIME: 16:35 END TIME: 17:00 INTRA- SERVICE (SEDATION) TIME: 30 minutes PATIENT MONITORING: The staff physician personally supervised and directed an independent trained observer who assisted in monitoring the patient?s level of consciousness and physiological status throughout the procedure. SIGNIFICANT COMPLICATIONS: None MINOR COMPLICATIONS: None SIGN-OUT DISCUSSION: Completed ESTIMATED BLOOD LOSS: Trace SPECIMENS: 40 cc of cloudy bilious fluid aspirated and samples sent to microbiology . Sample also sent for bilirubin and cell count. DRAIN(S): 10 Burundian pigtail drain IMPRESSION: ULTRASOUND GUIDED TRANSHEPATIC DRAIN PLACEMENT IN GALLBLADDER FOSSA COLLECTION. Stripper Apprentice: [facility] Transcribe Date/Time: Oct 17 2024 5:16P Dictated by : AMARILIS BOSS MD This examination was interpreted and the report reviewed and electronically signed by: EVERTON [facility]ULIO [facility]24[facility] EST ECHO Result Date: 10/17/2024 Echocardiography Report: Transthoracic Echo Main [facility] Bed[facility] Date of service: 10/17/2024 11:11:17 AM ANALYST Ordering physician: BRANDI ALARCON Exam indication: Shortness of Breath Technologist: Ria Weaver Interpreting physician: Lena Whalen MD PATIENT: Name: MR. CHARLES BLANDON : 1955 Age: 69 years Gender: M History of hypertension and chronic kidney disease. Previous cardiovascular interventions: Liver transplant Primary rhythm: sinus. Height: 175.30 cm BSA: 1.82 m??? Weight: 67.80 kg BMI: 22.1 kg/m??? Heart rate 78 bpm Blood pressure 136/79 mmHgTechnically difficult exam due to body habitus and suboptimal positioning. Color Doppler was utilized to interrogate the cardiac valves assessed and spectral Doppler was utilized to determine the flow velocities and pressure gradients reported in this exam. MEASUREMENTS: Value Indexed Normal LV ID (diastole) 4.8 cm (2D) 2.62 cm/m??? LV ID (systole) 3.1 cm (2D) 1.73 cm/m??? IVS, leaflet tips 1.1 cm (2D) Posterior wall thickness 1.1 cm (2D) Left ventricular mass 190 g (2D) 105 g/m??? Ejection Fraction 55 % (visual est.) EF > 52 FINDINGS: LEFT VENTRICLE The left ventricle is normal in size. Left ventricular systolic function is normal. Left ventricular diastolic function was not evaluated due to limited. Mitral annular lateral E/e': 5.7. Mitral annular septal E/e': 9.3. Wall Motion: All scored segments are normal. RIGHT VENTRICLE Estimated right ventricular systolic pressure is not reported due to an insufficient tricuspid regurgitation signal. Estimated right atrial pressure is 8 mmHg based on IVC assessment. RIGHT ATRIUM Inferior Vena Cava: The inferior vena cava appears normal measuring 1.5 cm. The vessel decreases less than 50 percent with inspiration. MITRAL VALVE There is tr waldo mitral valve regurgitation. There is mild thickening. The pressure half time is 54 msec. The peak mitral E/A ratio is 0.99. The average mitral E/e' ratio is 7.5. The mitral flow deceleration timeis 187 msec. TRICUSPID VALVE There is trace tricuspid valve regurgitation. There is no thickening.AORTIC VALVE There is no aortic valve regurgitation. Tricuspid aortic valve. There is mild thickening. There is mild calcification. The peak gradient is 6 mmHg (peak velocity = 118.1 cm/s). PULMONIC VALVE The pulmonic valve was not seen or not interrogated. There is trace pulmonic valve regurgitation. PERICARDIUM There is no pericardial effusion. There is a right pleural effusion. There is an epic ardial fat pad. CONCLUSIONS: - Technically difficult exam due to body habitus and suboptimal positioning. - Exam indication: Shortness of Breath - The left ventricle is normal in size. Left ventricular systolic function is normal. EF = 55 ??? 5% (visual est.) - Aortic sclerosis. - Exam was compared with the prior echocardiographic exam performed on 09/21/2024. Right pleural effusion seen. * * * Final * * * [facility] : [id number]^[employer]^SI^SUID CT ABD/PEL W IVCON Result Date: 10/16/2024 * * *Final Report* * * DATE OF EXAM: Oct 16 2024 12:48PM [facility] 0530 - CT ABD/PEL W IVCON / PROCEDURE REASON: Abnormal ERCP * * * * Physician Interpretation * * * * EXAMINATION: CT ABDOMEN AND PELVIS WITH IV CONTRAST CLINICAL HISTORY: EtOH cirrhosis/HCC, s/p DCD-OLT and drainage of right hydrothorax on 09/09/2024. Admitted for worsening abdominal distention, ascites. Concern for possible portal vein thrombus noncontrast CT. Underwent ERCP 10/15/2024 which demonstrated postoperative stricture, possible contained bile leak from the cystic duct, biliary pus/stones. TECHNIQUE: CT of the abdomen and pelvis was performed using standard technique, scanning from just above the dome of the diaphragm to the symphysis pubis. MQ: CTAP_3 Contrast: IV: 100 ml of Omnipaque 350 Oral: 300 ml of Omni 350 10-25ml diluted with water CT Radiation dose: Integrated Dose-length product (DLP) forthis visit = 639 mGy*cm. CT Dose Reduction Employed: mAs-kVp adjusted based on patient size-age COMPARISON: CT abdomen/pelvis 10/07/2024 RESULT: Liver: * Liver transplant. Mild periportal edema. * Slight interval decreased size of geographic area of low-attenuation in segments 4/8 since 10/07/2024 counting for differences of technique. Possibly resolving infarct versus inflammation. No new hepatic lesions. Biliary: * Cholecystectomy. 5.2 x 3.8 cm collection in the gallbladder fossa (3:59) containing small amount of contrast, likely corresponding with leak identified on recent ERCP. * CBD stent in place. * No biliary duct dilation. Trace pneumobilia, presumably postoperative. Spleen: No mass. No splenomegaly. Pancreas: No mass or duct dilation. Adrenals: No mass. Kidneys: No mass, calculus or hydronephrosis. GI tract: Few borderline and mildly dilated fluid and gas filled loops of small bowel without discrete transition point. No wall thickening. Diverticulosis. Lymph nodes: No abdominalor pelvic lymphadenopathy. Mesentery/Peritoneum: Moderate volume ascites. No drainable collections.Diffuse mesenteric edema. Retroperitoneum: No mass. Vasculature: - Abdominal aorta and iliac arteries: Atherosclerotic calcifications without aneurysm. - Celiac and SMA: Patent without stenosis. - Portal venous system (SMV, splenic vein, portal vein and branches): Patent. - Hepatic veins: Patent. - Other: Hepatic artery and anastomosis appears patent. Pelvis: Moderate ascites. No organized collections. No mass. Bones/Soft Tissues: Unchanged [id number] fractures. No acute osseous abnormalities. Ascites within right inguinal hernia. Diffuse bilateral edema. Lower thorax: Stable bilateral pleural effusions, partially loculated on the right with hydropneumothorax. Localizer images: No additional findings. IMPRESSION: 5.2 cm collection in the gallbladder fossa with small amount of contrast, likely contained bile leak. Stable to slightly decreased size of geographic low-attenuation in the right hepatic lobe, possibly inflammatory or evolving infarct. Moderate volume abdominopelvic ascites. Stable right hydropneumothorax and bilateral pleural effusions. Stripper Apprentice: [facility] Transcribe Date/Time: Oct 16 2024 1:06P Dictated by : JIM ANAYA MD This examination was interpreted and the report reviewed and electronically signed by: EVERTON JULIO MD on Oct 16 2024 2:07PM EST WOUND CARE: Wound Management Orders (From admission, onward) Start Ordered 11/01/24 1400 Wound Management: Use Associated Wounds location ([place] BONY AREAS); Wound prevention Weekly Comments: Apply foam. Assess under foam with each skin assessment. Question Answer Comment Wound Location Use Associated Wounds location [place] Wound Management Wound prevention 10/31/24 1115 10/31/24 0933 Wound Management: Use Associated Wounds location (ALL WOUNDS/PREVENTION); Wound care per algorithm Per algorithm Question Answer Comment Wound Location Use Associated Wounds location ALL WOUNDS/PREVENTION Wound Management Wound care per algorithm 10/31/24 0932 DIET: Adult Diet Therapeutic Diet; 2 g Potassium Restriction; 7 Regular (Regular Texture); 0 Thin (All Liquids) ACTIVITY/PRECAUTIONS: - Falls precautions - Weight bearing restriction: WBAT - Pt was instructed to report to PCP or local ER if experiencing any n/v, fever or chills, sudden weakness or worsening of pain, sudden confusion, or for any change or concerns in medical condition. Pt also advised that any falls--especially hitting of head--warrant immediate medical evaluation. Pt informed that failure to seek immediate medical attention in any of the aforementioned instances could result in significant morbidity and/or . INFORMATION PROVIDED TO THE PATIENT AND FAMILY: - After Visit Summary Provided by the RN - DC instructions completed and provided - If applicable, wound care instructions and supplies provided - DC medication reconciliation completed and educated with patient/family - DC summary forwarded to referring physicians MEDICAL EQUIPMENT: THERAPY DISCHARGE INSTRUCTIONS: PT Discharge Instructions [facility] Physical Therapy Discharge Instructions Precautions: None Discharge Location and Supervision/Assist: The following level of supervision is recommended: Supervision with walking and stairs Current Mobility Status: Transfers: independent (supervision for car transfer) Walking: supervision with walker Stair Climbing: hands-on assistance with handrail Home Exercise Program: Continue following the exercise program that was instructed to you by your therapist prior to discharge. PT Follow up Recommendations: Home PT services Diagnosis Specific Education Resources: Trans[employer] Recipients International Organization (TRIO) [facility] Chapter Web: trioc[place].org [place] Chapter Web: www.trioweb.org/chapters/active-chapters/item/sqgu-bgcjp-uyqzqe.html Home Safety: Remove throw rugs. Have adequate lighting. Remove objects from walkways. Ensure your smoke detectors are working. Do not transfer on a wet surface. Wear non-skid footware. Consider Life Alert or having cell phone available at all times. Take your time, no rushing! Home set up recommendations: Increase lighting in and around your home. A nightlight in the bedroom is advised if you may need to get up to go to the bathroom during the night. In the bedroom, consider adding a bed rail to assist when getting out of bed. Be sure to keep the phone within arm's reach. In the bathroom, use rubber mats in the shower or tub. Consider installing grab bars. Remove throw rugs in your home. Put everyday items on the lowest shelves to avoid using stepstools and chairs. Ask a relative or friend to rotate seasonal items in and out for easy access. Additional Information: Refer to physician before returning to work or driving. Please [facility] for further information if needed. Thank you for your participation in therapy at [facility]! You have made good progress throughout your stay. Please follow the following recommendations with all mobility and good luck with your next phase of rehabilitation! Keep working hard! PATIENCE HAYES, PT OT Discharge Instructions Current functional status and/or level of assist required for Activities of Daily Living upon discharge: Oral Care: You can complete this activity alone if seated and You can perform this activity standing if you have someone nearby in case you need some help. Dressing: You will need some assistance to set-up this activity, You can complete upper body dressing alone if seated, You can complete lower body dressing seated on edge of bed or chair and stand topull up pants alone, and You may need some assistance to get started and to pull up your pants. Bathing: You will need someone to help you get on the tub/shower seat and help to get your legs over the tub. You will need this same help to safely get out of the tub/shower also, You will need someone to steady you as you get into the shower and sit down on the shower seat. You will also need help to get out of the shower safely, After you are safely seated in the shower/tub, you will need someone to help you wash your back, legs and hip area, and After you have washed, you will need some occasional help to safely dry your body. Toileting: You will need someone to steady you while you take care of your hygiene during toiletingand You will be able to transfer to the toilet, manage your clothing and hygiene with use of grab bar for stabilization by yourself. Precautions: Fall risk during ADLs: Increase lighting in and around your home. A nightlight in the bedroom is advised if you may need to get up to go to the bathroom during the night, Place a bed side commode next to your bed to avoid walking to the bathroom during the night, Toileting urgency is the sudden andintense feeling of the need to use the toilet. This feeling can lead to rushing, stumbling and falls. Set a scheduled reminder to go to the toilet every two hours to avoid this situation, In the bedroom, consider adding a bed rail to assist when getting out of bed. Be sure to keep the phone within arm's reach, In the bathroom, use rubber mats in the shower or tub. Consider installing grab bars, Remove throw rugs in your home, Keep stairs clutter-free. Install lights at the top and bottom to increase visibility. Add a second handrail to stairs. This will improve your balance on both sides, andIn the kitchen, put everyday items on the lowest shelves to avoid using stepstools and chairs. Ask a relative or friend to rotate seasonal items in and out for easy access. Skin Checks: Perform daily skin checks to buttocks to ensure good skin quality. Home Exercise Program: Continue following the exercise program that was instructed to you by your therapist prior to discharge. FOLLOW-UP PLANS: Post-Hospital Rehab Orders: Home Health physical therapy, occupational therapy, social work case manager, and nursing 3x week Plan of Treatment Upcoming Encounters Date Type Department Care Team (Latest Contact Info) Description 11/21/2024 4:00 PM EDT Office Visit [facility] [address] [address] [place] LASHAWN EILEEN 11/21/2024 5:40 PM EDT Appointment MRI Q [address] [address] Compression fracture of cervical spine, non-traumatic, with delayed healing, subsequent encounter [M48.52XG] 11/21/2024 6:20 PM EDT Appointment MRI Q [address] [address] Compression fracture of cervical spine, non-traumatic, with delayed healing, subsequent encounter [M48.52XG] 11/21/2024 7:00 PM EDT Appointment MRI Q [address] [address] Compression fracture of cervical spine, non-traumatic, with delayed healing, subsequent encounter [M48.52XG] 02/03/2025 9:00 AM EDT [facility] Neurology [address] [place] [address] Devyn Roach MD [address] [place] [address] Vertigo [R42] 02/10/2025 11:00 AM EDT Appointment Gastroenterology [address] [address] Jane Correia MD [address] [place] [address] Schedule in about 3 months to remove biliary stent PLEASE SCHEDULE A FOLLOW UP APPOINTMENT WITH YOUR PCP WITHIN 2 WEEKS: Primary Care Provider Other Service Providers Document Coverage Dates Rusty Delgado II, MD (2024February 2024 - Present) [facility] [address] [place] [address] Internal Medicine [place] [address] [place] [address] Follow-up Information Follow up With Specialties Details Why Contact Info [facility] Home Health Services, Home Therapy Services, Home LivingAide Services [facility], [address] [place] [address] * Discharge Instr - CM* REYNA Salazar - 11/14/2024 4:12 PM EDT Thank you for allowing us to participate in your care. The following information will support your recovery. If you have any questions regarding your discharge services, please contact your social work case manager, Michelle, at [phone] Communication about: Home Health Care Services: Disciplines ordered: Nursing, Physical Therapy, Occupational Therapy, and Home Health Aide. If you do not receive a phone call within 24-48 hours after discharge, please call the [facility] agency [phone] or your social work case manager to follow-up. Transportation Arrangements: Family providing transport Durable Medical Equipment / Orthotics Additional Information: walker with [employer] [phone] Additional Information: If you use opioid medications for pain management and have an ongoing need, please consider seekinghelp from a pain management provider found at [employer].gov/regional account manager. Enter your zip code and filter by Opioid Treatment Programs in addition to Substance Use . Another resource is Medicare.govusing the Find care providers and choosing Doctors & clinicians and entering your zip code. If you are in emotional distress or suicidal crisis, call or text [phone] to seek confidential support. You will also find behavorial health providers at [employer].gov/regional account manager. Enter your zip code and filter by Mental Health . You can choose additional filters that apply to you. If you have health related social needs, you may locate assistance at FindInspirep.org by searching your local zip code then choosing the category that most represents your needs. Another resource includes either dialing the Codewise 211 or using www.Bimbasket.Unsocial and choosing Your Local 211 . If you prefer a printed copy of these providers, please contact your hospital Utility Bill Complaints Investigator. Please arrive for all appointments 15-20 minutes prior to appointment time. Remember to bring photoID, insurance cards and a list of current medications (including any vitamins, herbs, etc.) you aretaking. It is also beneficial to bring a copy of your discharge paperwork. Proper follow up medicalcare is vital to the recovery process, so please do your best to keep all appointments scheduled. If you are unable to make scheduled appointments, please call the provider and reschedule. As you settle in at home, we want to make sure you get the support you need for a smooth recovery. In order to facilitate this, you will receive two types of follow-up contacts: 1. Andor: Within a couple days of leaving the hospital, you will get a text message from ???[phone]?? and/or e-mail from [employer].. These messages will include a link for you to schedule a Virtual Transitional Care Visit. Your doctor and Care Team recommend this follow-up to help keep you on track with your recovery as a bridge to any primary care and specialty visits that have been recommended. 2. MedTel: Three months after you have been discharged, a nurse will call you on behalf of your rehabilitation program. The registered nurse will call from [place], [place] and the caller ID will be from [address] [place] [address] and display MedTel Outcomes. The nurse will ask questions that give your rehab programinformation on your progress since discharge. All information collected is confidential and only given to your rehabilitation program. * Discharge Instr-PT* Patience Hayes, PT - 11/14/2024 8:06 AM EDT [facility] Discharge Instructions Precautions: None Discharge Location and Supervision/Assist: The following level of supervision is recommended: Supervision with walking and stairs Current Mobility Status: Transfers: independent (supervision for car transfer) Walking: supervision with walker Stair Climbing: hands-on assistance with handrail Home Exercise Program: Continue following the exercise program that was instructed to you by your therapist prior to discharge. PT Follow up Recommendations: Home PT services Diagnosis Specific Education Resources: Trans[employer] Recipients International Organization (TRIO) [facility] Chapter Web: [facility].org [place] Chapter Web: www.trioweb.org/chapters/active-chapters/item/youy-qttwu-obbjci.html Home Safety: Remove throw rugs. Have adequate lighting. Remove objects from walkways. Ensure your smoke detectors are working. Do not transfer on a wet surface. Wear non-skid footware. Consider Life Alert or having cell phone available at all times. Take your time, no rushing! Home set up recommendations: Increase lighting in and around your home. A nightlight in the bedroom is advised if you may need to get up to go to the bathroom during the night. In the bedroom, consider adding a bed rail to assist when getting out of bed. Be sure to keep the phone within arm's reach. In the bathroom, use rubber mats in the shower or tub. Consider installing grab bars. Remove throw rugs in your home. Put everyday items on the lowest shelves to avoid using stepstools and chairs. Ask a relative or friend to rotate seasonal items in and out for easy access. Additional Information: Refer to physician before returning to work or driving. Please refer to your [facility] Resource Binder for further information if needed. Thank you for your participation in therapy at [facility]! You have made good progress throughout your stay. Please follow the following recommendations with all mobility and good luck with your next phase of rehabilitation! Keep working hard! PATIENCE HAYES, PT * Discharge Instr-OT* Samuel Kaiser OT - 11/14/2024 7:12 AM EDT Current functional status and/or level of assist required for Activities of Daily Living upon discharge: Oral Care: You can complete this activity alone if seated and You can perform this activity standing if you have someone nearby in case you need some help. Dressing: You will need some assistance to set-up this activity, You can complete upper body dressing alone if seated, You can complete lower body dressing seated on edge of bed or chair and stand topull up pants alone, and You may need some assistance to get started and to pull up your pants. Bathing: You will need someone to help you get on the tub/shower seat and help to get your legs over the tub. You will need this same help to safely get out of the tub/shower also, You will need someone to steady you as you get into the shower and sit down on the shower seat. You will also need help to get out of the shower safely, After you are safely seated in the shower/tub, you will need someone to help you wash your back, legs and hip area, and After you have washed, you will need some occasional help to safely dry your body. Toileting: You will need someone to steady you while you take care of your hygiene during toiletingand You will be able to transfer to the toilet, manage your clothing and hygiene with use of grab bar for stabilization by yourself. Precautions: Fall risk during ADLs: Increase lighting in and around your home. A nightlight in the bedroom is advised if you may need to get up to go to the bathroom during the night, Place a bed side commode next to your bed to avoid walking to the bathroom during the night, Toileting urgency is the sudden andintense feeling of the need to use the toilet. This feeling can lead to rushing, stumbling and falls. Set a scheduled reminder to go to the toilet every two hours to avoid this situation, In the bedroom, consider adding a bed rail to assist when getting out of bed. Be sure to keep the phone within arm's reach, In the bathroom, use rubber mats in the shower or tub. Consider installing grab bars, Remove throw rugs in your home, Keep stairs clutter-free. Install lights at the top and bottom to increase visibility. Add a second handrail to stairs. This will improve your balance on both sides, andIn the kitchen, put everyday items on the lowest shelves to avoid using stepstools and chairs. Ask a relative or friend to rotate seasonal items in and out for easy access. Skin Checks: Perform daily skin checks to buttocks to ensure good skin quality. Home Exercise Program: Continue following the exercise program that was instructed to you by your therapist prior to discharge. documented in this encounter Medications at Time of Discharge acyclovir (ZOVIRAX) 400 MG tablet Take 1 tablet (400 mg total) by mouth in the morning and 1 tablet (400 mg total) before bedtime. 11/15/2024 aspirin 81 MG EC tabletIndication s:Acute Myocardial Infarction Take 1 tablet (81 mg total) by mouth in the morning. Indications: Acute Heart Attack. 11/15/2024 Buprenorphine (BUTRANS) 10 MCG/HR patch weeklyIndication s:Chronic Pain Place 1 patch (10 mcg total) on the skin every 7 days Indications: Chronic Pain. 11/19/2024 ciprofloxacin (CIPRO) 500 MG tabletIndication s:Prophylaxis s/p procedure Take 1 tablet (500 mg total) by mouth in the morning and 1 tablet (500 mg total) before bedtime. Do all this for 9 doses. Indications: Prophylaxis s/p procedure. 9 tablet 11/15/2024 famotidine (PEPCID) 20 MG tablet Take 1 tablet (20 mg total) by mouth in the morning and 1 tablet (20 mg total) before bedtime. 11/15/2024 magnesium hydroxide (MILK OF MAGNESIA) 400 MG/5ML suspension Take 30 mL by mouth daily as needed for constipation (if patient prefers Oral medication). 11/15/2024 magnesium oxide 400 (240-250 Mg) MG tablet Take 2 tablets (800 mg total) by mouth 3 (three) times a day. 11/15/2024 methocarbamol (ROBAXIN) 750 MG tablet Take 1 tablet (750 mg total) by mouth 3 (three) times a day as needed for muscle spasms. 11/15/2024 midodrine (PROAMATINE) 10 MG tablet Take 1 tablet (10 mg total) by mouth in the morning and 1 tablet (10 mg total) at noon and 1 tablet (10 mg total) in the evening. 11/15/2024 mirtazapine (REMERON) 7.5 MG tablet Take 1 tablet (7.5 mg total) by mouth nightly. 11/15/2024 multivitamin w/ minerals (THERA M PLUS) Tab/Cap tablet Take 1 each (1 tablet total) by mouth in the morning. 11/15/2024 oxyCODONE (ROXICODONE) 5 MG immediate release tabletIndication s:Acute Pain Take 1-2 tablets (5-10 mg total) by mouth every 6 (six) hours as needed (5mg moderate pain, 10mg severe pain) for up to 9 days Indications: Acute Pain. Max Daily Amount: 40 mg 11/15/2024 pantoprazole (PROTONIX) 40 MG EC/DR tablet Take 1 tablet (40 mg total) by mouth in the morning and 1 tablet (40 mg total) in the evening. Take before meals. 11/15/2024 simethicone (MYLICON) 80 MG chewable tablet Chew 1 tablet (80 mg total) in the morning and 1 tablet (80 mg total) at noon and 1 tablet (80 mg total) in the evening and 1 tablet (80 mg total) before bedtime. 11/15/2024 sulfamethoxazole -trimethoprim (BACTRIM) 800-160 MG per tablet double-strengthI ndications:proph ylaxis Take 1 tablet by mouth 3 (three) times a week Indications: prophylaxis. 11/18/2024 tacrolimus (PROGRAF) 5 MG capsule Take 1 capsule (5 mg total) by mouth in the morning and 1 capsule (5 mg total) before bedtime. 11/15/2024 tamsulosin (FLOMAX) 0.4 MG capsule Take 1 capsule (0.4 mg total) by mouth nightly. 11/15/2024 traZODone (DESYREL) 50 MG tablet Take 1 tablet (50 mg total) by mouth nightly. 11/15/2024 ursodiol (ACTIGALL) 300 MG capsule Take 1 capsule (300 mg total) by mouth 3 (three) times a day. 11/15/2024 documented as of this encounter Progress Notes * Suze Jenkins MD - 11/15/2024 1:51 PM EDT Medicine Follow Up Note [facility] Patient identification: Name: Charles Blandon : 1955 Admitted: 10/30/2024 7:01 PM Subjective: Seen resting in bed. ROS: +Acute on chronic back pain +Abdominal distention Objective: BP 107/70 Pulse 82 Temp 97 ??F (36.1 ??C) (Oral) Resp 17 Ht 5' 9 (1.753 m) Wt 146 lb (66.2 kg) SpO2 96% BMI 21.56 kg/m?? Intake/Output last 3 shifts: I/O last 3 completed shifts: In: 120 [P.O.:120] Out: 250 Intake/Output this shift: I/O this shift: In: 240 [P.O.:240] Out: - Weight: Weight change: 4 lb (1.814 kg) Physical Exam: General: Awake, alert. In mild distress HEENT: NCAT Lungs: CTA b/l Heart; S1 S2 normal Abdomen: non-distended Extremities: no edema Assessment/Plan: Hx of Liver transplantation CBD stent Bile leak (s/p perihepatic aspiration and drain placement) Completed daptomycin ERCP done 11/13 Continue Bactrim, Prograf, Valcyte Monitor CMV Continue baby aspirin due to thrombocytosis Ascites survey-small to moderate ascites VRE (vancomycin-resistant Enterococci) infection Continue Daptomycin, monitor CK (10) Cytomegalovirus (CMV) viremia Continue Valcyte Follow CMV levels qMon Fluid overload Lasix on hold 2/2 RENATE Trans daily weights RENATE No retention on bladder scans Lasix held Given 500 NS bolus UA is negative renal sono no acute process F/u with nephrology Nausea & vomiting Ileus without SBO Abdominal distention (small ascites) Continue regular diet Continue bowel regimen Zofran PRN KUB-non obstructive, gas filled loops Simethicone 4x daily Chronic bilateral low back pain without sciatica History of T11 and T12 compression fractures Consulted Neurosurgery - not an appropriate surgical candidate Pain control PT/OT Lumbar x-ray-no acute abnormalities Vertigo CT brain 10/07: negative MRI brain 10/24: negative for acute abnormality follow up with Vestibular Neurologist, Dr. Roach Moderate-sized loculated right hydropneumothorax. Medium-sized left pleural effusion RVP (+) parainfluenza 3 S/p left thoracentesis 10/14: 320 cc drained, culture NGTD Stable, currently on room air Anemia due to multiple mechanisms Monitor Severe protein-calorie malnutrition Continue regular diet Nutrition following GERD (gastroesophageal reflux disease) Continue pepcid BID DVT ppx; Heparin BID SUZE JENKINS MD 11/15/24 * Chelsea Cunningham MD - 11/15/2024 1:23 PM EDT Nephrology Progress Note Subjective: Interval History: Charles Blandon none Patient medications: Reviewed, see medication history. Objective: Vital signs in last 24 hours: Temp: [96.9 ??F (36.1 ??C)-97 ??F (36.1 ??C)] 97 ??F (36.1 ??C) Pulse: [60-82] 82 Resp: [17] 17 BP: (107-124)/(67-78) 107/70 Intake/Output last 3 shifts: I/O last 3 completed shifts: In: 120 [P.O.:120] Out: 250 Intake/Output this shift: I/O this shift: In: 240 [P.O.:240] Out: - Weight: Wt Readings from Last 3 Encounters: 11/15/24 146 lb (66.2 kg) 10/07/24 164 lb 4.8 oz (74.5 kg) Physical Exam: General appearance: alert, appears stated age, and cooperative Lungs: clear to auscultation bilaterally Heart: regular rate and rhythm, S1, S2 normal, no murmur, click, rub or gallop Abdomen: soft, non-tender; bowel sounds normal; no masses, no organomegaly Extremities: extremities normal, atraumatic, no cyanosis or edema Pulses: 2+ and symmetric Skin: Skin color, texture, turgor normal. 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 Charles Blandon is a 69 year old male with a past medical history CKD 3 baseline creatinine 1.0-1.1,eGFR 60's-70's, HHT, Tipton's esophagus, and ETOH cirrhosis complicated by portal HTN, ascites, HE, large EV, and recently diagnosed HCC. He was admitted on to [facility] on 08/23 with altered mental status and hyponatremia. He was subsequently listed for liver transplant on 09/04/24. Now s/p DCD-OLT on 09/09/24. Patient was treated for RENATE Cr >2.8, resolved 09/16. Status improved and discharged to [facility] on 09/29. Patient returned to [facility] for admission on 10/07 w increased Shortness of Breath anddiarrhea. Pulmonary consulted and did not recommend thoracentesis but diuresis. Zosyn started for PNA coverage. RVP (+) parainfluenza and supportive care given. Required ERCP 10/15. Stay was complicated by Bile leak, image guided abdominal drain placement into collection with posituve cultures for E.Faecium. Started on IV dapotmycin, ordered until 11/12/24. Developed left pleural effusion requiringdiuresis and thoracentesis on 10/14 as well as gastric gaseous distension and scattered gas filled nondilated small bowel and colon requiring NG tube placement. ECHO on 10/17 showed an EF of 55% with normal LV function. Stay was further complicated by severe back pain, MRI obtained per neurology. 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 Pt discharged to [facility] on 10/[facility]. RENATE secondary to prerenal azotemia in setting of hypotension (resolved), now with RENATE on 11/07 secondary to prerenal azotemia in setting of hypotension and possible drug mediated in setting of bactrimuse on, CKD stage 3 Baseline Cr 0.8-0.9 Cr up to 1.5 on 11/07 and patient was given albumin infusions in setting of positive orthostatic VS. IM team ordered 0.5 L NS November 08, no further needs for IV fluids Cr at plateau levels, held bactrim on different occasions and holding the dose today, We will further trend kidney function HTN Currently off antihypertensives With hypotension of dysautonomia on 11/06 Orthostatic VS with positive results, drop in BP noted while sitting and standing. Good responses to x 1 dose of albumin on 11/06 and scheduled midodrine. BP soft and patient was given albumin infusions and IV fluids on different occasions. BP more stable now, patient denies any symptoms. Continue Midodrine 10 mg TID Diuretics on hold, Continue to hold. Continue to follow the trend of BP HFpEF Fluid overload and anasarca Chest x-ray with components of edema Ultrasound abdomen showed moderate ascites Last echo 10/17 with EF 55% Required paracentesis at different occasions last October 30 Hold lasix 40 mg twice a day, in presence of RENATE Previously completed Metolazone Keep close eye on respiratory and fluid volume status off diuretics Euvolemic on exam, good urine output noted Monitor urine output and daily weight Anemia Hgb stable, on MARGO therapy will continue to trend Liver Transplant September 04, 2024 On bactrim and tacrolimus and valcyte held bactrim on different occasions in presence of RENATE, was restarted most recently on 11/13, now onhold again. Will continue to follow the trend of kidney function Biliary stent infection On daptomycin until 11/13 Hypomagnesemia Stable, Continue scheduled PO mag oxide 800 mg TID will continue to follow the trend. Hyperkalemia Potassium up to 5.9 11/14 morning, given x 3 doses of lokelma 10 g and x 1 dose fludricortisone 0.2 mg Holding the Bactrim today Recheck potassium today 5.1, will give x 1 dose of lokelma 10 g Ok to discharge from nephrology standpoint will follow up in the office in 1-2 weeks. Case discussed with Dr. Cunningham Thank you for your consult We will follow along with you SIGNATURE: BARRY PALMER APRN PATIENT NAME: Charles Blandon DATE: November 15, 2024 TIME: 1:23 PM EDT PAGER: * Suze Jenkins MD - 11/14/2024 5:31 PM EDT Medicine Follow Up Note [facility] Patient identification: Name: Charles Blandon : 1955 Admitted: 10/30/2024 7:01 PM Subjective: Seen resting in bed. ROS: +Acute on chronic back pain +Abdominal distention Objective: BP 117/70 Pulse 60 Temp 96.9 ??F (36.1 ??C) (Oral) Resp 18 Ht 5' 9 (1.753 m) Wt 142 lb (64.4 kg) SpO2 97% BMI 20.97 kg/m?? Intake/Output last 3 shifts: I/O last 3 completed shifts: In: 120 [P.O.:120] Out: 261 [Drains:11] Intake/Output this shift: No intake/output data recorded. Weight: Weight change: -1 lb (-0.454 kg) Physical Exam: General: Awake, alert. In mild distress HEENT: NCAT Lungs: CTA b/l Heart; S1 S2 normal Abdomen: non-distended Extremities: no edema Assessment/Plan: Hx of Liver transplantation CBD stent Bile leak (s/p perihepatic aspiration and drain placement) Completed daptomycin ERCP done 11/13 Continue Bactrim, Prograf, Valcyte Monitor CMV Continue baby aspirin due to thrombocytosis Ascites survey-small to moderate ascites VRE (vancomycin-resistant Enterococci) infection Continue Daptomycin, monitor CK (10) Cytomegalovirus (CMV) viremia Continue Valcyte Follow CMV levels qMon Fluid overload Lasix on hold 2/2 RENATE Trans daily weights RENATE No retention on bladder scans Lasix held Given 500 NS bolus UA is negative renal sono no acute process F/u with nephrology Nausea & vomiting Ileus without SBO Abdominal distention (small ascites) Continue regular diet Continue bowel regimen Zofran PRN KUB-non obstructive, gas filled loops Simethicone 4x daily Chronic bilateral low back pain without sciatica History of T11 and T12 compression fractures Consulted Neurosurgery - not an appropriate surgical candidate Pain control PT/OT Lumbar x-ray-no acute abnormalities Vertigo CT brain 10/07: negative MRI brain 10/24: negative for acute abnormality follow up with Vestibular Neurologist, Dr. Roach Moderate-sized loculated right hydropneumothorax. Medium-sized left pleural effusion RVP (+) parainfluenza 3 S/p left thoracentesis 10/14: 320 cc drained, culture NGTD Stable, currently on room air Anemia due to multiple mechanisms Monitor Severe protein-calorie malnutrition Continue regular diet Nutrition following GERD (gastroesophageal reflux disease) Continue pepcid BID DVT ppx; Heparin BID SUZE JENKINS MD 11/14/24 * Chelsea Cunningham MD - 11/14/2024 12:41 PM EDT Nephrology Progress Note Subjective: Interval History: Charles Blandon none Patient medications: Reviewed, see medication history. Objective: Vital signs in last 24 hours: Temp: [96.9 ??F (36.1 ??C)] 96.9 ??F (36.1 ??C) Pulse: [57-76] 57 Resp: [18] 18 BP: (105-137)/(63-79) 105/65 Intake/Output last 3 shifts: I/O last 3 completed shifts: In: 120 [P.O.:120] Out: 261 [Drains:11] Intake/Output this shift: No intake/output data recorded. Weight: Wt Readings from Last 3 Encounters: 11/14/24 142 lb (64.4 kg) 10/07/24 164 lb 4.8 oz (74.5 kg) Physical Exam: General appearance: alert, appears stated age, and cooperative Lungs: clear to auscultation bilaterally Heart: regular rate and rhythm, S1, S2 normal, no murmur, click, rub or gallop Abdomen: soft, non-tender; bowel sounds normal; no masses, no organomegaly Extremities: extremities normal, atraumatic, no cyanosis or edema Pulses: 2+ and symmetric Skin: Skin color, texture, turgor normal. No rashes or lesions Neurologic: Grossly normal Labs: CBC: Recent Labs Lab Units 11/14/24 0330 WBC k/uL 2.59* RBC AUTO m/uL 2.40* HEMOGLOBIN g/dL 7.2* HEMATOCRIT % 23.9* MCV fL 99.6 PLATELETS AUTO k/uL 507* BMP: Recent Labs Lab Units 11/14/24 0330 SODIUM mmol/L 134* POTASSIUM mmol/L 5.9* CHLORIDE mmol/L 102 CO2 mmol/L 22 BUN mg/dL 20 CREATININE mg/dL 1.40* GLUCOSE mg/dL 113* CALCIUM mg/dL 8.6 ANION GAP mmol/L 10 MG/PHOS: Recent Labs Lab Units 11/14/24 0330 MAGNESIUM mg/dL 2.1 PHOSPHORUS mg/dL 4.9* Assessment/ Plan: Active Problems: Critical illness myopathy LOS: 15 days He reports his symptoms are improving with treatment. Charles Blandon is a 69 year old male with a past medical history CKD 3 baseline creatinine 1.0-1.1,eGFR 60's-70's, HHT, Tipton's esophagus, and ETOH cirrhosis complicated by portal HTN, ascites, HE, large EV, and recently diagnosed HCC. He was admitted on to [facility] on 08/23 with altered mental status and hyponatremia. He was subsequently listed for liver transplant on 09/04/24. Now s/p DCD-OLT on 09/09/24. Patient was treated for RENATE Cr >2.8, resolved 09/16. Status improved and discharged to [facility] on 09/29. Patient returned to [facility] for admission on 10/07 w increased Shortness of Breath anddiarrhea. Pulmonary consulted and did not recommend thoracentesis but diuresis. Zosyn started for PNA coverage. RVP (+) parainfluenza and supportive care given. Required ERCP 10/15. Stay was complicated by Bile leak, image guided abdominal drain placement into collection with posituve cultures for E.Faecium. Started on IV dapotmycin, ordered until 11/12/24. Developed left pleural effusion requiringdiuresis and thoracentesis on 10/14 as well as gastric gaseous distension and scattered gas filled nondilated small bowel and colon requiring NG tube placement. ECHO on 10/17 showed an EF of 55% with normal LV function. Stay was further complicated by severe back pain, MRI obtained per neurology. 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 Pt discharged to [facility] on 10/30. RENATE secondary to prerenal azotemia in setting of hypotension (resolved), now with RENATE on 11/07 secondary to prerenal azotemia in setting of hypotension and possible drug mediated in setting of bactrimuse on, CKD stage 3 Baseline Cr 0.8-0.9 Cr up to 1.5 on 11/07 and patient was given albumin infusions in setting of positive orthostatic VS. IM team ordered 0.5 L NS November 08, no further needs for IV fluids Cr at plateau levels, held bactrim on different occasions and holding the dose tomorrow, We will further trend kidney function HTN Currently off antihypertensives With hypotension of dysautonomia on 11/06 Orthostatic VS with positive results, drop in BP noted while sitting and standing. Good responses to x 1 dose of albumin on 11/06 and scheduled midodrine. BP soft and patient was given albumin infusions and IV fluids on different occasions. BP more stable now, patient denies any symptoms. Continue Midodrine 10 mg TID Diuretics on hold, Continue to hold. Continue to follow the trend of BP HFpEF Fluid overload and anasarca Chest x-ray with components of edema Ultrasound abdomen showed moderate ascites Last echo 10/17 with EF 55% Required paracentesis at different occasions last October 30 Hold lasix 40 mg twice a day, in presence of RENATE Previously completed Metolazone Keep close eye on respiratory and fluid volume status off diuretics Euvolemic on exam, good urine output noted Monitor urine output and daily weight Anemia Hgb stable, on MARGO therapy will continue to trend Liver Transplant September 04, 2024 On bactrim and tacrolimus and valcyte held bactrim on different occasions in presence of RENATE, was restarted most recently on 11/13. Will continue to follow the trend of kidney function Biliary stent infection On daptomycin until 11/13 Hypomagnesemia Stable, Continue scheduled PO mag oxide 800 mg TID will continue to follow the trend. Hyperkalemia Potassium up to 5.9 today morning, will give x 3 doses of lokelma 10 g over today Will also give x 1 dose fludricortisone 0.2 mg Holding the Bactrim tomorrow Will repeat lab work tomorrow Case discussed with Dr. Cunningham Thank you for your consult We will follow along with you SIGNATURE: BARRY PALMER APRN PATIENT NAME: Charles Blandon DATE: November 14, 2024 TIME: 12:41 PM EDT PAGER: * David Cruz, DO - 11/14/2024 10:54 AM EDT [facility] PM&R Progress Note 11/14/2024 ASSESSMENT: Critical Illness Myopathy Metastatic HCC S/p DCD OLT, 09/09 Biliary stricture of transplanted liver Acute blood loss Anemia, PRBC 09/27 (Crossmatch T and B cell weak positive ), 10/26 Parainfluenza pneumonia infection Fluid overload VRE Biliary stent infection Ascites s/p perihepatic collection aspiration and drain placement, 10/17. 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 Functional Bowel Incontinence Protein Calorie Malnutrition Gait Abnormality Ambulatory Dysfunction ADL Dysfunction Debility Cognitive Impairment Constipation Coordination Deficit Spasticity Skin Wound Neuropathic Pain Chronic Pain Balance Deficits PLAN: IM, ID, Nephro, Pulm, Cardio Consult Psychologist consultation and evaluation, Melatonin, Trazodone; remeron Biweekly immunosuppression labs, viral surveillance titre's weekly and biweekly IDT with liver transplant team ATB Daptomycin IV to complete 11/12 Prophylaxis: Acyclovir, Bactrim, Nystatin swish/swallow completes 09/30 Immunosuppression: prograf bid, cellcept bid, prednisone completed 09/30 Midodrine tid to keep BP normal Bowel Program: Miralax, Colace, Senna, Dulcolax Glycemic Control:Lispro Bladder Retraining and eval for high PVR and IC if >300, Flomax Nutritional Support - Adult Diet Regular; 7 Regular (Regular Texture); 0 Thin (All Liquids) GI prophylaxis: Protonix Fall Prevention Isolation: No active isolations Pain management: Acetaminophen, Oxycodone, Lidocaine, Robaxin DVT prophylaxis: Lovenox 11/05 add butrans 5mcg patch for chronic back pain 11/06 IM getting u/s to asses for ascites 11/07 get KUB 11/08 add linzess bid 11/11 ERCP on Monday, NPO orders and heparin hold orders placed 11/12 incr butrans to 10mcg patch Rehab Issues: Potential barriers to progress- complex medical issues, significant impairments. Rehab plan- PT/OT for ADLs, transfer, and gait training, ROM , strengthening and balance exercises,assistive device prescription. Rehab nursing for skin care, bowel and bladder care, administration of medication, patient and family education. Case management for care coordination and discharge.Therapy schedule will be 3 hrs/day x 5-6 days/week or 15 hrs/7 days in special situations. Weekly Interdisciplinary Rehab Team Meeting to address barriers to discharge and coordination of care. Subjective: 10 pt ROS negative for - chills, fatigue, fever, malaise, night sweats, sleep disturbance, or THIBODEAUX, CP, SOB, diarrhea Current Function: 11/14/2024: SM Functional Status PT Data (since 11/11/2024) Value Time User Bed Mobility Level of Assist Modified Independent 11/13/2024 9:46 AM Samuel Kaiser OT Bed Mobility Comment Sit->supine supervision for safety with use of bed rail. 11/13/2024 11:04 AM Patience Hayes PT Transfer to Bed 11/13/2024 11:04 AM Patience Hayes, PT Transfer from Wheelchair 11/13/2024 11:04 AM Patience Hayes PT Transfer Level of Assist Close Supervision 11/13/2024 11:04 AM Patience Hayes PT Ambulation Level of Assist Contact Guard 11/11/2024 2:53 PM Belinda A Larsen, PT Distance (feet) 200 11/11/2024 12:18 PM Anh Medrano, PT Gait Analysis Pt amb 1x180' + 1x65' with FWW and SBA for safety. Pt demo increased ankle DF throughout stance bilaterally, reciprocal pattern, and mild decrease in gait speed. Pt required prolonged seated rest between trials to manage fatigue and mild SOB 11/13/2024 10:23 AM Patience Hayes, PT WC Analysis PT dependently transported patient room <> therapy gym, utilizing this time as a therapeutic rest break between activities. 11/11/2024 2:53 PM Belinda Larsen, PT Objective: Physical Exam: VS: BP 106/63 Pulse 60 Temp 96.9 ??F (36.1 ??C) (Oral) Resp 18 Ht 5' 9 (1.753 m) Wt 142 lb (64.4 kg) SpO2 97% BMI 20.97 kg/m?? General: NAD CV: No c/c/e Pulm: No audible wheezing or stridor Abdomen: soft, non-tender, No g/r/r Extremities: Full ROM in all limbs, Tone normal in all limbs Wound Management: Wound Management Orders (From admission, onward) Start Ordered 11/01/24 1400 Wound Management: Use Associated Wounds location ([place]); Wound prevention Weekly Comments: Apply foam. Assess under foam with each skin assessment. Question Answer Comment Wound Location Use [facility] location [place] Wound Management Wound prevention 10/31/24 1115 10/31/24 0933 Wound Management: Use Associated Wounds location (ALL WOUNDS/PREVENTION); Wound care per algorithm Per algorithm Question Answer Comment Wound Location Use Associated Wounds location ALL WOUNDS/PREVENTION Wound Management Wound care per algorithm 10/31/24 0932 Section GG CARE Scores - Current All Therapy Physical Therapy Car Transfer Car Transfer - CARE Score: 3 (11/11/24 1218) Walk 10 Feet Walk 10 Feet - CARE Score: 6 (11/11/24 1218) Walk 50 Feet with Two Turns Walk 50 Feet with Two Turns - CARE Score: 6 (11/11/24 1218) Walk 150 Feet Walk 150 Feet - CARE Score: 4 (11/11/24 1218) Walking 10 Feet on Uneven Surfaces Walking 10 Feet on Uneven Surfaces - CARE Score: 4 (11/11/24 1218) 1 Step (Curb) 1 Step (Curb) - CARE Score: 4 (11/11/241217) 4 Steps 4 Steps - CARE Score: 4 (11/11/241217) 12 Steps 12 Steps - CARE Score: 88 (11/11/241217) Picking Up Object Picking Up Object - CARE Score: 6 (11/11/241217) Wheel 50 Feet with Two Turns Wheel 50 Feet with Two Turns - CARE Score: 1 (11/11/241217) Wheel 150 Feet Wheel 150 Feet - CARE Score: 1 (11/11/241217) Occupational Therapy Eating Eating - CARE Score: 5 (11/11/24956) Oral Hygiene Oral Hygiene - CARE Score: 6 (11/11/24956) Toileting Hygiene Toileting Hygiene - CARE Score: 3 (11/11/24956) Shower/Bathe Self Shower/Bathe Self - CARE Score: 3 (11/11/24956) Upper Body Dressing Upper Body Dressing - CARE Score: 3 (11/11/24956) Lower Body Dressing Lower Body Dressing - CARE Score: 3 (11/11/24956) Putting On/Taking Off Footwear Putting On/Taking Off Footwear - CARE Score: 3 (11/11/24956) Roll Left and Right Roll Left and Right - CARE Score: 6 (11/11/24956) Sit to Lying Sit to Lying - CARE Score: 6 (11/11/24956) Lying to Sitting on Side of Bed Lying to Sitting on Side of Bed - CARE Score: 6 (11/11/24956) Sit to Stand Sit to Stand - CARE Score: 4 (11/11/24956) Chair/Uuj-wd-Tkepq Transfer Chair/Blf-em-Zefhn Transfer - CARE Score: 4 (11/11/24956) Toilet Transfer Toilet Transfer - CARE Score: 4 (11/11/24956) Speech Therapy Expression of Ideas and Wants Expression of Ideas and Wants: Without difficulty (10/31/24822) Understanding Verbal and Non-Verbal Content Understanding Verbal and Non-Verbal Content: Understands (10/31/24822) BIMS Brief Interview for Mental Status (BIMS) Repetition of Three Words (First Attempt): 3 (10/31/24822) Temporal Orientation: Year: Correct (10/31/24822) Temporal Orientation: Month: Accurate within 5 days (10/31/24822) Temporal Orientation: Day: Correct (10/31/24822) Recall: Sock : Yes, no cue required (10/31/24822) Recall: Blue : Yes, no cue required (10/31/24822) Recall: Bed : Yes, after cueing ( a piece of furniture ) (10/31/24822) BIMS Summary Score: 14 (10/31/24822) Memory/Recall Ability Labs: Most recent labs reviewed. CBC with Differential: Recent Labs Lab Units 11/11/24 0506 WBC k/uL 3.22* RBC AUTO m/uL 2.60* HEMOGLOBIN g/dL 8.0* HEMATOCRIT % 25.6* PLATELETS AUTO k/uL 561* MCV fL 98.5 MCH pg 30.8 MCHC g/dL 31.3 [ MG/PHOS: Recent Labs Lab Units 11/14/24 0330 11/11/24 0506 MAGNESIUM mg/dL -- 2.2 PHOSPHORUS mg/dL 4.9* 3.9 PT/INR: CMP: Recent Labs Lab Units 11/11/24 0506 SODIUM mmol/L 136 POTASSIUM mmol/L 5.0 CHLORIDE mmol/L 100 CO2 mmol/L 24 BUN mg/dL 18 CREATININE mg/dL 1.52* GLUCOSE mg/dL 90 PROTEIN TOTAL g/dL 5.8* CALCIUM mg/dL 8.8 ALBUMIN g/dL 3.0* BILIRUBIN, TOTAL mg/dL 0.3 ALKALINE PHOSPHATASE U/L 151* ALT U/L 11 AST U/L 19 ANION GAP mmol/L 12 LFT's: Recent Labs Lab Units 11/11/24 0506 PROTEIN TOTAL g/dL 5.8* ALKALINE PHOSPHATASE U/L 151* AST U/L 19 ALT U/L 11 Glucose Last 3 Days: Imaging: US abdomen limited Result Date: 11/06/2024 * * *Final Report* * * DATE OF EXAM: Nov 06 2024 3:45PM [id number] [id number] - US ABDOMEN LTD / PROCEDURE REASON: ASCITES SURVEY * * * * Physician Interpretation * * * * Clinical information: Ascites Ascites survey was performed. Images were obtained and stored in a permanent archive. Small to moderate volume ascites within the right lower quadrant, left upper quadrant, and left lower quadrant. Ascites contains multiple septations. Partially visualized small right-sided pleural effusion. Impression: Small to moderate volume ascites containing multiple septations Stripper Apprentice: [facility] Transcribe Date/Time: Nov 06 2024 4:32P Dictated by : AMARILIS MACK MD This examination was interpreted and the report reviewed and electronically signed by: AMARILIS MACK MD on Nov 06 2024 4:33PM EST XR lumbar spine 1 vws Result Date: 11/04/2024 * * *Final Report* * * DATE OF EXAM: Nov 04 2024 3:30PM [id number] [id number] - XR LUMBAR 1V / PROCEDURE REASON: 11/24 acute on chronic back pain with hx of compression fractures * * * * Physician Interpretation * * * * Information: Back pain, compression fractures Limited AP only view of the lumbar spine was obtained. Study correlated with CT scan dated 10/24/2024. Compression deformities involving T11 and T12, visualization is limited. No definite lumbar compression fractures. Lumbar disc spaces are grossly maintained. Impression: Limited AP only study with suboptimal visualization of the lumbar spine. No definite lumbar compression fracture. T11 and T12 compression fractures better seen on prior CT scan. Stripper Apprentice: [facility] Transcribe Date/Time: Nov 04 2024 4:31P Dictated by: AMARILIS MACK MD This examination was interpreted and the report reviewed and electronically signed by: AMARILIS MACK MD on Nov 04 2024 4:32PM EST XR CHEST 1 VWS Result Date: 11/04/2024 * * *Final Report* * * DATE OF EXAM: Nov 01 2024 2:39PM [id number] - XR CHEST 1V FRONTAL / PROCEDURE REASON: pleural effusion * * * * Physician Interpretation * * * * EXAMINATION:CHEST RADIOGRAPH (PORTABLE SINGLE VIEW AP) EXAM DATE/TIME: 11/01/2024 2:39 PM INDICATIONS: Shortnessof breath. Pleural effusion MQ: XCPR_5 COMPARISON: 10/14/2024 RESULT: Lines, tubes, and devices: Interval placement of a right PICC line, with the distal tip in the lower SVC/upper atrium. Lungs and pleura: Interval decrease in opacification of the right lower lung zone, compatible with decrease inright pleural effusion and right basilar opacities. Small to moderate amount of airspace opacities still persists in the right lower lung zone; atelectasis/scarring versus infiltrates. Small amount of patchy opacities in the left lower lung zone that could be related to mild subsegmental atelectasis. A tiny left pleural effusion cannot be excluded. Prominence of interstitial markings raising the possibility of mild pulmonary vascular congestion. Cardiomediastinal silhouette: Stable cardiomediastinal silhouette. No acute osseous abnormality. IMPRESSION: Interval decrease in the right pleural effusion and right basilar opacities. Possible mild pulmonary vascular congestion. Stripper Apprentice: [facility] Transcribe Date/Time: Nov 04 2024 8:27A Dictated by : CHARIS WHALEN MD This examination was interpreted and the report reviewed and electronically signed by: CHARIS WHALEN MD on Nov 04 2024 8:28AM EST US abdomen limited Result Date: 11/03/2024 * * *Final Report* * * DATE OF EXAM: Nov 03 2024 1:28PM [facility] 1064 - US ABDOMEN LTD / PROCEDURE REASON: evaluate for ascites * * * * Physician Interpretation * * * * EXAMINATION: US ABDOMEN LTD HISTORY: evaluate for ascites TECHNIQUE: Limited evaluation of the abdomen to evaluate for ascites . Images were obtained and stored in a permanent archive. COMPARISON: 10/29/2024 ultrasound RESULT: See Impression. - IMPRESSION: Small to moderate volume of multiloculated ascites with numerous septations is similar to prior study. Stripper Apprentice: [facility] Transcribe Date/Time: Nov 03 2024 2:13P Dictated by : MD YOLANDA This examination was interpreted and the report reviewed and electronically signed by: JIM LUZ MD on Nov 03 2024 2:14PM EST US DOPPLER COMPLETE Result Date: 10/29/2024 * * *Final Report* * * DATE OF EXAM: Oct 29 2024 3:39PM [facility] 1033 - US DOPPLER COMPLETE / PROCEDURE REASON: Liver transplant * * * * Physician Interpretation * * * * EXAMINATION:LIVER VASCULAR ULTRASOUND WITH DOPPLER IMAGING CLINICAL HISTORY: 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 Images were obtained and stored in a permanent archive. MQ: USLV_1 COMPARISON:CT 10/24/2024, ultrasound 10/19/2024. RESULT: Sonographic Findings: Pancreas: Normal sonographic appearance. Portions obscured: tail Liver: Echotexture: Normal, homogeneous. Echogenicity: Normal Surface contour: Smooth Lesions: None. Biliary: No intrahepatic biliary duct dilation. Stable pneumobilia. CBD: 0.8 cm at the hilum. Gallbladder: Prior cholecystectomy. Gallbladder fossa partially obscured with drain in place. Right Kidney: No hydronephrosis. Spleen: Craniocaudal length 9.4 cm, normal. There are no splenic lesions. Other: Moderate volume loculated ascites, increased from prior ultrasound 10/19/2024 HEPATIC VASCULATURE: PORTAL SYSTEM: -Splenic Vein: Patent with antegrade flow (towards the liver). -Main PV: Patent with phasic antegrade flow (towards liver). 44-58 cm/sec. Previously 38-53 cm/sec. -Right anterior PV: Patent with phasic antegrade flow (towards liver). 25.5 cm/sec. Pre viously 30 cm/sec -Right posterior PV: Patent with phasic antegrade flow (towards liver). 30 cm/sec. Previously 32 cm/sec -Left PV: Patent with phasic antegrade flow (towards liver). 19 cm/sec. Previously 26 cm/sec HEPATIC ARTERIES: - Main THIBODEAUX: Normal waveform PSV: 51-57 cm/sec. RI: 0.74-0.75. Previo usly 70-84 cm/sec. RI: 0.76-0.80 - Right anterior THIBODEAUX: Normal waveform PSV: 59 cm/sec. RI: 0.68. Previously 66 cm/sec. RI: 0.72 - Right posterior THIBODEAUX: Normal waveform PSV: 81 cm/sec. RI: 0.74. Previously 66 cm/sec. RI: 0.77 - Left THIBODEAUX: Normal waveform PSV: 60 cm/sec. RI: 0.70. Previously 73 cm/sec. RI: 0.77 HEPATIC VEINS: -Left: Patent with triphasic waveform. -Middle: Patent with triphasic waveform. -Right: Patent with triphasic waveform. IVC: Patent with normal, phasic wave form. IMPRESSION: Patent hepatic vasculature with appropriately directed flow. Mildly increased multiloculated ascites. 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 Images were obtained and stored in a permanent archive. MQ: USLV_1 COMPARISON: CT 10/24/2024, ultrasound 10/19/2024. RESULT: Sonographic Findings: Pancreas: Normal sonographic appearance. Portions obscured: tail Liver: Echotexture: Normal, homogeneous. Echogenicity: Normal Surface contour: Smooth Lesions: None. Biliary: No intrahepatic biliary duct dilation. Stable pneumobilia. CBD: 0.8 cm at the hilum. Gallbladder: Prior cholecystectomy. Gallbladder fossa partially obscured with drain in place. Right Kidney: No hydronephrosis. Spleen: Craniocaudal length 9.4cm, normal. There are no splenic lesions. Other: Moderate volume loculated ascites, increased from p rior ultrasound 10/19/2024 HEPATIC VASCULATURE: PORTAL SYSTEM: -Splenic Vein: Patent with antegradeflow (towards the liver). -Main PV: Patent with phasic antegrade flow (towards liver). 44-58 cm/sec. Previously 38-53 cm/sec. -Right anterior PV: Patent with phasic antegrade flow (towards liver). 25.5 cm/sec. Previously 30 cm/sec -Right posterior PV: Patent with phasic antegrade flow (towards liver). 30 cm/sec. Previously 32 cm/sec -Left PV: Patent with phasic antegrade flow (towards liver). 19 cm/sec. Previously 26 cm/sec HEPATIC ARTERIES: - Main THIBODEAUX: Normal waveform PSV: 51-57 cm/sec. RI: 0.74-0.75. Previously 70-84 cm/sec. RI: 0.76-0.80 - Right anterior THIBODEAUX: Normal waveform PSV: 59 cm/sec. RI: 0.68. Previously 66 cm/sec. RI: 0.72 - Right posterior THIBODEAUX: Normal waveform PSV: 81 cm/sec. RI: 0.74. Previously 66 cm/sec. RI: 0.77 - Left THIBODEAUX: Normal waveform PSV: 60 cm/sec. RI: 0.70. Previously 73 cm/sec. RI: 0.77 HEPATIC VEINS: -Left: Patent with triphasic waveform. -Middle: Patent with triphasic waveform. -Right: Patent with triphasic waveform. IVC: Patent with normal, phasic wave form. IMPRESSION: Patent hepatic vasculature with appropriately directed flow. Mildly increased multiloculated ascites. Stripper Apprentice: [facility] Transcribe Date/Time: Oct 29 2024 3:46P Dictated by : MARIO YU MD This examination was interpreted and the report reviewed and electronically signed by: AMARILIS ADAMSON MD on Oct 29 2024 4:11PM EST DAVID CRUZ DO * Aidan Brown MD - 11/13/2024 5:27 PM EDT Pulmonary / Critical Care Progress Note Subjective: is at the bedside. Breathing has been stable overall. Not requiring oxygen. Underwent ERCP today Objective: Vital signs for last 24 hours: Temp: [97.1 ??F (36.2 ??C)-98.2 ??F (36.8 ??C)] 97.1 ??F (36.2 ??C) Pulse: [62-90] 72 Resp: [18] 18 BP: (113-151)/(72-82) 117/72 Intake/Output last 3 shifts: I/O last 3 completed shifts: In: 300 [P.O.:300] Out: 586 [Drains:11] Intake/Output this shift: No intake/output data recorded. Weight: Weight change: 3.2 oz (0.091 kg) Physical Exam: General awake alert following command HEENT pupils equal and clear sclera clear oropharynx Neck supple Cardiovascular regular rhythm S1-S2 Lungs clear to auscultation no wheezing Abdomen soft nontender Extremity no edema cyanosis or clubbing Neurologically nonfocal cranial nerves intact grossly Imaging: I have reviewed all lmaging and testing from the last 24 hrs Lab Review: CBC: Recent Labs Lab Units 11/11/24 0506 WBC k/uL 3.22* RBC AUTO m/uL 2.60* HEMOGLOBIN g/dL 8.0* HEMATOCRIT % 25.6* MCV fL 98.5 PLATELETS AUTO k/uL 561* BMP: Recent Labs Lab Units 11/11/24 0506 SODIUM mmol/L 136 POTASSIUM mmol/L 5.0 CHLORIDE mmol/L 100 CO2 mmol/L 24 BUN mg/dL 18 CREATININE mg/dL 1.52* GLUCOSE mg/dL 90 CALCIUM mg/dL 8.8 ANION GAP mmol/L 12 PT/INR: BNP: Troponin: U/A: Recent Labs Lab Units 11/08/24 1823 COLOR UA Yellow CLARITY UA Clear GLUCOSE UR Negative BILIRUBIN URINE Negative KETONES U MG/DL Negative BLOOD U Negative UROBILINOGEN UA Normal NITRITE UA Negative LFT's: Recent Labs Lab Units 11/11/24 0506 PROTEIN TOTAL g/dL 5.8* Ionized Calcium: Invalid input(s): IONCA ABG: Invalid input(s): BDEF Current Facility-Administered Medications Medication Dose Route Frequency Provider Last Rate Last Admin acetaminophen (TYLENOL) 160 MG/5ML solution 500 mg 500 mg Oral Q6H PRN David Cruz DO 500 mg at 11/10/24 1301 alum & mag hydroxide-simeth enteral suspension 15 mL 15 mL Oral Q4H PRN David Cruz DO 15mL at 11/02/24 0520 aspirin EC tablet 81 mg 81 mg Oral Once a day David Cruz DO 81 mg at 11/13/24 0802 bisacodyl (DULCOLAX) suppository 10 mg 10 mg Rectal Daily PRN David Cruz DO Buprenorphine (BUTRANS) patch 10 mcg 10 mcg Transdermal Q7 Days David Cruz DO 10 mcg at 11/12/24 1157 And Check Patch Placement Transdermal BID David Cruz DO Check Patch Placement at 11/13/24 0732 epoetin omar (PROCRIT) injection 15,000 Units 15,000 Units Subcutaneous Once per day on Monday Chelsea Cunningham MD 15,000 Units at 11/13/24 0804 famotidine (PEPCID) tablet 20 mg 20 mg Oral 2 times per day David Belem Anthony, DO 20 mg at 11/13/24 08 heparin (porcine) injection 5,000 Units 5,000 Units Subcutaneous Q12H [facility] David Patricia Anthony, DO 5,000 Units at 11/12/24 07 linaclotide (LINZESS) capsule 145 mcg 145 mcg Oral Once a day David Patricia Anthony, DO 145 mcg at 11/13/24 0802 magnesium hydroxide (MILK OF MAGNESIA) 400 MG/5ML suspension 30 mL 30 mL Oral Daily PRN Davidyoli Cruz, DO magnesium oxide tablet 800 mg 800 mg Oral 3 times per day Suze Jenkins MD 800 mg at 11/13/24 08 melatonin tablet 3 mg 3 mg Oral Nightly Betty Dias, DO 3 mg at 11/12/242037 methocarbamol (ROBAXIN) tablet 750 mg 750 mg Oral TID PRN Davidyoli Cruz DO 750 mg at 11/13/24 112 midodrine (PROAMATINE) tablet 10 mg 10 mg Oral 3 times per day Barry Palmer APRN 10 mg at 11/13/24 112 mirtazapine (REMERON) tablet 7.5 mg 7.5 mg Oral Nightly David Belem Anthony, DO 7.5 mg at 11/12/242037 multivitamin w/ minerals (THERA M PLUS) tablet/capsule 1 tablet 1 tablet Oral Once a day David Belem Anthony DO 1 tablet at 11/13/24 08 ondansetron ODT (ZOFRAN-ODT) disintegrating tablet 4 mg 4 mg Oral Q6H PRN Suze Jenkins MD 4 mg at11/09/24 1335 oxyCODONE (ROXICODONE) immediate release tablet 10 mg 10 mg Oral Q6H PRN Suze Jenkins MD 10 mg at11/13/24 1120 pantoprazole (PROTONIX) EC/DR tablet 40 mg 40 mg Oral BID AC David Belem Anthony, DO 40 mg at 801 simethicone (MYLICON) chewable tablet 80 mg 80 mg Oral 4x Daily Betty Dias, DO 80 mg at 11/13/24 0803 sulfamethoxazole-trimethoprim (BACTRIM) 800-160 MG per tablet double-strength 1 tablet 1 tablet Oral Once per day on Monday Chelsea Cunningham MD 1 tablet at 11/13/24803 tacrolimus (PROGRAF) capsule 5 mg 5 mg Oral 2 times per day David Cruz, DO 5 mg at 11/13/24610 tamsulosin (FLOMAX) 24 hr capsule 0.4 mg 0.4 mg Oral Nightly David Cruz DO 0.4 mg at 11/12/242036 traZODone (DESYREL) tablet 50 mg 50 mg Oral Nightly Betty Serena Larissa, DO 50 mg at 11/12/242036 ursodiol (ACTIGALL) capsule 300 mg 300 mg Oral 3 times per day David Cruz DO 300 mg at 11/13/24803 valGANciclovir (VALCYTE) tablet 900 mg 900 mg Oral 2 times per day David Cruz DO 900 mg at 11/13/24803 Assessment / Plan Active Problems: Critical illness myopathy S/p liver transplant Hepatocellular carcinoma BL pleural effusions and right hydropneumothorax post pig tail right side and thoracentesis . Diuretics were held . Biliary infection on Daptomycin till 11/12, no evidence of side effects. 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 Functional Bowel Incontinence Protein Calorie Malnutrition Gait Abnormality Ambulatory Dysfunction ADL Dysfunction Debility Cognitive Impairment Constipation Coordination Deficit Spasticity Skin Wound Neuropathic Pain Chronic Pain Balance Deficits PLAN: IM, ID, Nephro, Pulm, Cardio Consult Psychologist consultation and evaluation, Melatonin, Trazodone; remeron Biweekly immunosuppression labs, viral surveillance titre's weekly and biweekly IDT with liver transplant team ATB Daptomycin IV to complete 11/12 Prophylaxis: Acyclovir, Bactrim, Nystatin swish/swallow completes 09/30 Immunosuppression: prograf bid, cellcept bid, prednisone completed 09/30 Midodrine tid to keep BP normal Bowel Program: Miralax, Colace, Senna, Dulcolax Glycemic Control:Lispro Bladder Retraining and eval for high PVR and IC if >300, Flomax Nutritional Support - Adult NPO Diet Meds with Sips of Water GI prophylaxis: Protonix Fall Prevention Isolation: No active isolations Pain management: Acetaminophen, Oxycodone, Lidocaine, Robaxin DVT prophylaxis: Lovenox 11/05 add butrans 5mcg patch for chronic back pain 11/06 IM getting u/s to asses for ascites 11/07 get KUB 11/08 add linzess bid 11/11 ERCP on Monday, NPO orders and heparin hold orders placed 11/12 incr butrans to 10mcg patch Rehab Issues: Potential barriers to progress- complex medical issues, significant impairments. Rehab plan- PT/OT for ADLs, transfer, and gait training, ROM , strengthening and balance exercises,assistive device prescription. Rehab nursing for skin care, bowel and bladder care, administration of medication, patient and family education. Case management for care coordination and discharge.Therapy schedule will be 3 hrs/day x 5-6 days/week or 15 hrs/7 days in special situations. Weekly Interdisciplinary Rehab Team Meeting to address barriers to discharge and coordination of care. Subjective: 10 pt ROS negative for - chills, fatigue, fever, malaise, night sweats, sleep disturbance, or THIBODEAUX, CP, SOB, diarrhea Current Function: 11/13/2024: Functional Status PT Data (since 11/10/2024) Value Time User Bed Mobility Level of Assist Modified Independent 11/13/2024 9:46 AM Samuel Kaiser, OT Bed Mobility Comment Sit->supine supervision for safety with use of bed rail. 11/13/2024 11:04 AM Patience Hayes PT Transfer to Bed 11/13/2024 11:04 AM Patience Hayes PT Transfer from Wheelchair 11/13/2024 11:04 AM Patience Hayes PT Transfer Level of Assist Close Supervision 11/13/2024 11:04 AM Patience Hayes PT Ambulation Level of Assist Contact Guard 11/11/2024 2:53 PM Belinda Larsen PT Distance (feet) 200 11/11/2024 12:18 PM Anh Medrano, PT Gait Analysis Pt amb 1x180' + 1x65' with FWW and SBA for safety. Pt demo increased ankle DF throughout stance bilaterally, reciprocal pattern, and mild decrease in gait speed. Pt required prolonged seated rest between trials to manage fatigue and mild SOB 11/13/2024 10:23 AM Patience Hayes PT WC Analysis PT dependently transported patient room <> therapy gym, utilizing this time as a therapeutic rest break between activities. 11/11/2024 2:53 PM Belinda Larsen, PT Objective: Physical Exam: VS: BP 117/72 Pulse 72 Temp 97.1 ??F (36.2 ??C) (Oral) Resp 18 Ht 5' 9 (1.753 m) Wt 143 lb (64.9 kg) SpO2 91% BMI 21.12 kg/m?? General: NAD CV: No c/c/e Pulm: No audible wheezing or stridor Abdomen: soft, non-tender, No g/r/r Extremities: Full ROM in all limbs, Tone normal in all limbs Wound Management: Wound Management Orders (From admission, onward) Start Ordered 11/01/24 1400 Wound Management: Use Associated Wounds location ([place]); Wound prevention Weekly Comments: Apply foam. Assess under foam with each skin assessment. Question Answer Comment Wound Location Use Associated Wounds location [place] Wound Management Wound prevention 10/31/24 1115 10/31/24 0933 Wound Management: Use Associated Wounds location (ALL WOUNDS/PREVENTION); Wound care per algorithm Per algorithm Question Answer Comment Wound Location Use Associated Wounds location ALL WOUNDS/PREVENTION Wound Management Wound care per algorithm 10/31/24 0932 Section GG CARE Scores - Current All Therapy Physical Therapy Car Transfer Car Transfer - CARE Score: 3 (11/11/241217) Walk 10 Feet Walk 10 Feet - CARE Score: 6 (11/11/241217) Walk 50 Feet with Two Turns Walk 50 Feet with Two Turns - CARE Score: 6 (11/11/241217) Walk 150 Feet Walk 150 Feet - CARE Score: 4 (11/11/241217) Walking 10 Feet on Uneven Surfaces Walking 10 Feet on Uneven Surfaces - CARE Score: 4 (11/11/241217) 1 Step (Curb) 1 Step (Curb) - CARE Score: 4 (11/11/241217) 4 Steps 4 Steps - CARE Score: 4 (11/11/241217) 12 Steps 12 Steps - CARE Score: 88 (11/11/241217) Picking Up Object Picking Up Object - CARE Score: 6 (11/11/241217) Wheel 50 Feet with Two Turns Wheel 50 Feet with Two Turns - CARE Score: 1 (11/11/241217) Wheel 150 Feet Wheel 150 Feet - CARE Score: 1 (11/11/241217) Occupational Therapy Eating Eating - CARE Score: 5 (11/11/24956) Oral Hygiene Oral Hygiene - CARE Score: 6 (11/11/24956) Toileting Hygiene Toileting Hygiene - CARE Score: 3 (11/11/24956) Shower/Bathe Self Shower/Bathe Self - CARE Score: 3 (11/11/24956) Upper Body Dressing Upper Body Dressing - CARE Score: 3 (11/11/24956) Lower Body Dressing Lower Body Dressing - CARE Score: 3 (11/11/24956) Putting On/Taking Off Footwear Putting On/Taking Off Footwear - CARE Score: 3 (11/11/24956) Roll Left and Right Roll Left and Right - CARE Score: 6 (11/11/24956) Sit to Lying Sit to Lying - CARE Score: 6 (11/11/24956) Lying to Sitting on Side of Bed Lying to Sitting on Side of Bed - CARE Score: 6 (11/11/24956) Sit to Stand Sit to Stand - CARE Score: 4 (11/11/24956) Chair/Gfo-xi-Dzfba Transfer Chair/Naq-rh-Nnntz Transfer - CARE Score: 4 (11/11/24956) Toilet Transfer Toilet Transfer - CARE Score: 4 (11/11/24956) Speech Therapy Expression of Ideas and Wants Expression of Ideas and Wants: Without difficulty (10/31/24822) Understanding Verbal and Non-Verbal Content Understanding Verbal and Non-Verbal Content: Understands (10/31/24822) BIMS Brief Interview for Mental Status (BIMS) Repetition of Three Words (First Attempt): 3 (10/31/24822) Temporal Orientation: Year: Correct (10/31/24822) Temporal Orientation: Month: Accurate within 5 days (10/31/24822) Temporal Orientation: Day: Correct (10/31/24822) Recall: Sock : Yes, no cue required (10/31/24822) Recall: Blue : Yes, no cue required (10/31/24822) Recall: Bed : Yes, after cueing ( a piece of furniture ) (10/31/24822) BIMS Summary Score: 14 (10/31/24822) Memory/Recall Ability Labs: Most recent labs reviewed. CBC with Differential: Recent Labs Lab Units 11/11/24 0506 WBC k/uL 3.22* RBC AUTO m/uL 2.60* HEMOGLOBIN g/dL 8.0* HEMATOCRIT % 25.6* PLATELETS AUTO k/uL 561* MCV fL 98.5 MCH pg 30.8 MCHC g/dL 31.3 [ MG/PHOS: Recent Labs Lab Units 11/11/24 0506 MAGNESIUM mg/dL 2.2 PHOSPHORUS mg/dL 3.9 PT/INR: CMP: Recent Labs Lab Units 11/11/24 0506 SODIUM mmol/L 136 POTASSIUM mmol/L 5.0 CHLORIDE mmol/L 100 CO2 mmol/L 24 BUN mg/dL 18 CREATININE mg/dL 1.52* GLUCOSE mg/dL 90 PROTEIN TOTAL g/dL 5.8* CALCIUM mg/dL 8.8 ALBUMIN g/dL 3.0* BILIRUBIN, TOTAL mg/dL 0.3 ALKALINE PHOSPHATASE U/L 151* ALT U/L 11 AST U/L 19 ANION GAP mmol/L 12 LFT's: Recent Labs Lab Units 11/11/24 0506 PROTEIN TOTAL g/dL 5.8* ALKALINE PHOSPHATASE U/L 151* AST U/L 19 ALT U/L 11 Glucose Last 3 Days: Imaging: US abdomen limited Result Date: 11/06/2024 * * *Final Report* * * DATE OF EXAM: Nov 06 2024 3:45PM [id number] [id number] - US ABDOMEN LTD / PROCEDURE REASON: ASCITES SURVEY * * * * Physician Interpretation * * * * Clinical information: Ascites Ascites survey was performed. Images were obtained and stored in a permanent archive. Small to moderate volume ascites within the right lower quadrant, left upper quadrant, and left lower quadrant. Ascites contains multiple septations. Partially visualized small right-sided pleural effusion. Impression: Small to moderate volume ascites containing multiple septations Stripper Apprentice: [employer] Transcribe Date/Time: Nov 06 2024 4:32P Dictated by : AMARILIS MACK MD This examination was interpreted and the report reviewed and electronically signed by: AMARILIS MACK MD on Nov 06 2024 4:33PM EST XR lumbar spine 1 vws Result Date: 11/04/2024 * * *Final Report* * * DATE OF EXAM: Nov 04 2024 3:30PM [id number] [id number] - XR LUMBAR 1V / PROCEDURE REASON: 11/24 acute on chronic back pain with hx of compression fractures * * * * Physician Interpretation * * * * Information: Back pain, compression fractures Limited AP only view of the lumbar spine was obtained. Study correlated with CT scan dated 10/24/2024. Compression deformities involving T11 and T12, visualization is limited. No definite lumbar compression fractures. Lumbar disc spaces are grossly maintained. Impression: Limited AP only study with suboptimal visualization of the lumbar spine. No definite lumbar compression fracture. T11 and T12 compression fractures better seen on prior CT scan. Stripper Apprentice: [employer] Transcribe Date/Time: Nov 04 2024 4:31P Dictated by: AMARILIS MACK MD This examination was interpreted and the report reviewed and electronically signed by: AMARILIS MACK MD on Nov 04 2024 4:32PM EST XR CHEST 1 VWS Result Date: 11/04/2024 * * *Final Report* * * DATE OF EXAM: Nov 01 2024 2:39PM [id number] [id number] - XR CHEST 1V FRONTAL / PROCEDURE REASON: pleural effusion * * * * Physician Interpretation * * * * EXAMINATION:CHEST RADIOGRAPH (PORTABLE SINGLE VIEW AP) EXAM DATE/TIME: 11/01/2024 2:39 PM INDICATIONS: Shortnessof breath. Pleural effusion MQ: XCPR_5 COMPARISON: 10/14/2024 RESULT: Lines, tubes, and devices: Interval placement of a right PICC line, with the distal tip in the lower SVC/upper atrium. Lungs and pleura: Interval decrease in opacification of the right lower lung zone, compatible with decrease inright pleural effusion and right basilar opacities. Small to moderate amount of airspace opacities still persists in the right lower lung zone; atelectasis/scarring versus infiltrates. Small amount of patchy opacities in the left lower lung zone that could be related to mild subsegmental atelectasis. A tiny left pleural effusion cannot be excluded. Prominence of interstitial markings raising the possibility of mild pulmonary vascular congestion. Cardiomediastinal silhouette: Stable cardiomediastinal silhouette. No acute osseous abnormality. IMPRESSION: Interval decrease in the right pleural effusion and right basilar opacities. Possible mild pulmonary vascular congestion. Stripper Apprentice: [employer] Transcribe Date/Time: Nov 04 2024 8:27A Dictated by : CHARIS WHALEN MD This examination was interpreted and the report reviewed and electronically signed by: CHARIS WHALEN MD on Nov 04 2024 8:28AM EST US abdomen limited Result Date: 11/03/2024 * * *Final Report* * * DATE OF EXAM: Nov 03 2024 1:28PM S0U 1064 - US ABDOMEN LTD / PROCEDURE REASON: evaluate for ascites * * * * Physician Interpretation * * * * EXAMINATION: US ABDOMEN LTD HISTORY: evaluate for ascites TECHNIQUE: Limited evaluation of the abdomen to evaluate for ascites . Images were obtained and stored in a permanent archive. COMPARISON: 10/29/2024 ultrasound RESULT: See Impression. - IMPRESSION: Small to moderate volume of multiloculated ascites with numerous septations is similar to prior study. Stripper Apprentice: [employer] Transcribe Date/Time: Nov 03 2024 2:13P Dictated by : MD YOLANDA This examination was interpreted and the report reviewed and electronically signed by: JIM LUZ MD on Nov 03 2024 2:14PM EST US DOPPLER COMPLETE Result Date: 10/29/2024 * * *Final Report* * * DATE OF EXAM: Oct 29 2024 3:39PM [facility] 1033 - US DOPPLER COMPLETE / PROCEDURE REASON: Liver transplant * * * * Physician Interpretation * * * * EXAMINATION:LIVER VASCULAR ULTRASOUND WITH DOPPLER IMAGING CLINICAL HISTORY: 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 Images were obtained and stored in a permanent archive. MQ: USLV_1 COMPARISON:CT 10/24/2024, ultrasound 10/19/2024. RESULT: Sonographic Findings: Pancreas: Normal sonographic appearance. Portions obscured: tail Liver: Echotexture: Normal, homogeneous. Echogenicity: Normal Surface contour: Smooth Lesions: None. Biliary: No intrahepatic biliary duct dilation. Stable pneumobilia. CBD: 0.8 cm at the hilum. Gallbladder: Prior cholecystectomy. Gallbladder fossa partially obscured with drain in place. Right Kidney: No hydronephrosis. Spleen: Craniocaudal length 9.4 cm, normal. There are no splenic lesions. Other: Moderate volume loculated ascites, increased from prior ultrasound 10/19/2024 HEPATIC VASCULATURE: PORTAL SYSTEM: -Splenic Vein: Patent with antegrade flow (towards the liver). -Main PV: Patent with phasic antegrade flow (towards liver). 44-58 cm/sec. Previously 38-53 cm/sec. -Right anterior PV: Patent with phasic antegrade flow (towards liver). 25.5 cm/sec. Pre viously 30 cm/sec -Right posterior PV: Patent with phasic antegrade flow (towards liver). 30 cm/sec. Previously 32 cm/sec -Left PV: Patent with phasic antegrade flow (towards liver). 19 cm/sec. Previously 26 cm/sec HEPATIC ARTERIES: - Main THIBODEAUX: Normal waveform PSV: 51-57 cm/sec. RI: 0.74-0.75. Previo usly 70-84 cm/sec. RI: 0.76-0.80 - Right anterior THIBODEAUX: Normal waveform PSV: 59 cm/sec. RI: 0.68. Previously 66 cm/sec. RI: 0.72 - Right posterior THIBODEAUX: Normal waveform PSV: 81 cm/sec. RI: 0.74. Previously 66 cm/sec. RI: 0.77 - Left THIBODEAUX: Normal waveform PSV: 60 cm/sec. RI: 0.70. Previously 73 cm/sec. RI: 0.77 HEPATIC VEINS: -Left: Patent with triphasic waveform. -Middle: Patent with triphasic waveform. -Right: Patent with triphasic waveform. IVC: Patent with normal, phasic wave form. IMPRESSION: Patent hepatic vasculature with appropriately directed flow. Mildly increased multiloculated ascites. Stripper Apprentice: [employer] Transcribe Date/Time: Oct 29 2024 3:46P Dictated by : MARIO YU MD This examination was interpreted and the report reviewed and electronically signed by: AMARILIS ADAMSON MD on Oct 29 2024 4:11PM EST US ABD LIVER VASCULAR TRANSPLANT () Result Date: 10/29/2024 * * *Final Report* * * DATE OF EXAM: Oct 29 2024 3:00PM [facility] 0685 - US ABD LIVER VASCULAR TRANSPLANT/ PROCEDURE REASON: Liver transplant * * * * Physician Interpretation * * * *EXAMINATION: LIVER VASCULAR ULTRASOUND WITH DOPPLER IMAGING CLINICAL HISTORY: 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 Images were obtained and stored in a permanent archive. MQ: USLV_1 COMPARISON: CT 10/24/2024, ultrasound 10/19/2024. RESULT: Sonographic Findings: Pancreas: Normal sonographic appearance. Portions obscured: tail Liver: Echotexture: Normal, homogeneous. Echogenicity: Normal Surface contour: Smooth Lesions: None. Biliary: No intrahepatic biliary duct dilation. Stable pneumobilia. CBD: 0.8 cm at the hilum. Gallbladder: Prior cholecystectomy. Gallbladder fossa partially obscured with drain in place. Right Kidney: No hydronephrosis. Spleen: Craniocaudal length 9.4cm, normal. There are no splenic lesions. Other: Moderate volume loculated ascites, increased from p rior ultrasound 10/19/2024 HEPATIC VASCULATURE: PORTAL SYSTEM: -Splenic Vein: Patent with antegradeflow (towards the liver). -Main PV: Patent with phasic antegrade flow (towards liver). 44-58 cm/sec. Previously 38-53 cm/sec. -Right anterior PV: Patent with phasic antegrade flow (towards liver). 25.5 cm/sec. Previously 30 cm/sec -Right posterior PV: Patent with phasic antegrade flow (towards liver). 30 cm/sec. Previously 32 cm/sec -Left PV: Patent with phasic antegrade flow (towards liver). 19 cm/sec. Previously 26 cm/sec HEPATIC ARTERIES: - Main THIBODEAUX: Normal waveform PSV: 51-57 cm/sec. RI: 0.74-0.75. Previously 70-84 cm/sec. RI: 0.76-0.80 - Right anterior THIBODEAUX: Normal waveform PSV: 59 cm/sec. RI: 0.68. Previously 66 cm/sec. RI: 0.72 - Right posterior THIBODEAUX: Normal waveform PSV: 81 cm/sec. RI: 0.74. Previously 66 cm/sec. RI: 0.77 - Left THIBODEAUX: Normal waveform PSV: 60 cm/sec. RI: 0.70. Previously 73 cm/sec. RI: 0.77 HEPATIC VEINS: -Left: Patent with triphasic waveform. -Middle: Patent with triphasic waveform. -Right: Patent with triphasic waveform. IVC: Patent with normal, phasic wave form. IMPRESSION: Patent hepatic vasculature with appropriately directed flow. Mildly increased multiloculated ascites. 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 male who presents for rehab s/p liver transplant, US normal flow, biliary sphincterotomy and stent to CBD, VRE on daptomycin, valcyte for CMV, R sided locumated pleural effusion, s/p L thoracentesis, 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 male who presents for rehab s/p DBD OLT, on acyclovir bactrim tacrolimu, prednisone. Elevated BS on steroids treated by endocrine now on humalog not on treatement at home,presented with alcohol inudced cirrhosis, portal HTN, ascites, hepatic encephalopathy, esophageal va rices, hereditary telangiectasia and barets esophagus, basal cell excision 2016, recent hepatocellular carcinoma. Previously denied transplant suspected T10 mets from HCC but biopsy negative. R pleural efusion 09/10. Encephalopathy and ascites preoperative. Preop cath and diffuse CAD but a lession sign in circumflex FFR 0.79 after OM2 treated managed medically. Echocardiogram: Impression CONCLUSIONS: - Technically difficult exam due to suboptimal positioning and body habitus. - Exam indication: Shortness of Breath - Left ventricular systolic function is normal. EF = 55 ?? 5% (visual est.) - The right ventricle is normal in size. Right ventricular systolic function is normal. - Exam was compared with the prior echocardiographic exam performed on 05/01/2024. no change, except for plerual effusion not seen today Preop [facility] Charles Blandon is a 68 year old male with history of alcohol-related cirrhosis with portal hypertension, ascites, esophageal varices, GERD, Tipton's esophagus, gout, hyperlipidemia and hypertension who presents for left heart catheterization for preoperative planning of liver transplant. Access Point Sheath Size Hemostasis Method Right Radial Artery 5F Short Radial TR band + + DIAGNOSTIC FINDINGS + + Coronary Anatomy: Right Dominant Injection Site(s): Coronary Artery and Aorta LMT: The LMT has mild luminal irregularities. Additional Comment: The LMT is a large caliber segment that supplies the LAD and LCx. LAD: The mid LAD is narrowed 40 % - focal disease. The 2nd diagonal - moderate diffuse disease. Additional Comment: The LAD supplies two diagonal branches before reaching toward the apex. There is a 40% stenosis in the mid LAD between the two diagonal branches. The second diagonal, which is small caliber, has moderate diffuse disease. Cathworks FFR across LAD was not significant 0.95. There is mild diffuse disease elsewhere in the vessel. LCX: The proximal circumflex is narrowed 40 % - focal disease. The distal circumflex is narrowed 70 % - focal disease. Additional Comment: The LCx is a large caliber vessel that supplies two obtuse marginal branches (the first of which is very small caliber) before tapering. There is a 40% stenosis in the proximal LCx, a 70% stenosis of the continuation of the LCx after the OM2, and mild diffuse disease elsewhere. Of note, this LCx continuation is small caliber. RAMUS: Ramus Status: Not Applicable. RCA: The proximal RCA is narrowed 30 % - focal disease. The right posterior descending artery RCA is narrowed 70 % - focal disease. Additional Comment: The RCA is a large caliber, dominant vessel that supplies two RV marginal branches, a PDA then continues in the AV groove to supply a few small caliber PL branches. There is a 70% stenosis of the PDA that is positive by cathworks (FFR 0.79). Proximal RCA has 30% disease. mpression: 1. Right dominant coronary system 2. Obstructive coronary artery disease of the distal LCx (following takeoff of the OM2) and the rPDA. Recommended Treatment: Further discussion with transplant team. Plan: - Ongoing workup for liver transplantation - Multidisciplinary discussion regarding the management of obstructive coronary artery disease. - Optimal medical management of coronary artery disease per primary senior investment analyst. Discharge Summary 69 yo male with etoh cirrhosis c/b HCC s/p DCD OLT w placement of R chest drain on 09/09/[address] Nava . Pt dc to [place] 09/29 and returned for admission on 10/07 w increased Shortness of Breath and diarrhea. Pulmonary consulted and did not recommend thoracentesis but diuresis. Zosyn started for PNA coverage. RVP (+) parainfluenza and supportive care given. LV US (10/08) patent hepatic vasculature w appropriate directed flow. CBD wall thickening containing debris. Pt w notable rising alk phos through out hospital stay w decision to proceed w ERCP. ERCP (10/15) filling defects c/w stones and sludge.Single moderate biliary stricture found in common hepatic duct. Bile leak found eminating from the donor cystic duct remnant, appeared contained. Biliary tree swept and pus and debris found. Large stone proximal to the stenosis could not be removed. CT abd/pelvis w IV contrast (10/16) 5.2cm GB fossa collection, likely contained bile leak. Stable to slightly decreased size of geographic low attenuation in the R hepatic lobe, possibly inflammatory or evolving infarct. Patient underwent imaging guided abdominal drain placement into collection on 10/17. 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 ID consulted and Daptomycin was started. Patient had a repeat CT of the abdomen on 10/18 due to abdominal pain. It showed moderate ascites, left pleural effusion, stable right hydropneumothorax, and abdominal drain catheter with decompression of the gallbladder fossa collection. Patient with abdominal pain/distension with nausea and vomiting. Xray of the abdomen on 10/24 showedgastric gaseous distension and scattered gas filled nondilated small bowel and colon. An NG tube was placed on 10/24. He had a CT of the abdomen on 10/24 which showed decrease of the gallbladder fossa collection, moderate ascites, new peritoneal thickening/enhancement, and percutaneous drain. Patientwith improved symptoms so NG tube was removed on 10/25/24. He had a PICC line placed on 10/24/24 to continue antibiotic treatment until 11/12/24. Patient had developed chest pain with shortness of breath on 10/14. EKG on 10/14 showed normal sinus rhythm, HsTNT with no significant increase, and ECHO on 10/17 showed an EF of 55% with normal LV function. His chest pain and breathing improved. Patient had a thoracentesis on 10/14 with cultures being negative for infection and cytology was negative. Patient was given furosemide to manage edema whichimproved. Patient with history of T11 and T12 compression fractures. He reported increased back pain so consult with neurosurgery who recommended no further imaging and patient was currently not an appropriatesurgical candidate. Patient with dizziness and vertigo. MRI brain completed on 10/24 which showed noevidence of acute intracranial abnormality and sequela of chronic small vessel disease. Results of MRI brain were discussed with neurology who recommended outpatient followup with Vestibular Neurologist. 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 Consult with PM&R who recommended acute rehab. Patient was stable for discharge on 10/30/24. Current Facility-Administered Medications: acetaminophen (TYLENOL) 160 MG/5ML solution 500 mg, 500 mg, Oral, Q6H PRN, David Cruz, DO, 500 mg at 11/10/24 1301 alum & mag hydroxide-simeth enteral suspension 15 mL, 15 mL, Oral, Q4H PRN, David Cruz, DO, 15 mL at 11/02/24 0520 aspirin EC tablet 81 mg, 81 mg, Oral, Once a day, David Cruz, DO, 81 mg at 11/12/24 0730 bisacodyl (DULCOLAX) suppository 10 mg, 10 mg, Rectal, Daily PRN, David Cruz DO Buprenorphine (BUTRANS) patch 10 mcg, 10 mcg, Transdermal, Q7 Days AND Check Patch Placement, ,Transdermal, BID, David Cruz, DO DAPTOmycin (CUBICIN) 700 mg in sodium chloride 0.9 % 114 mL IVPB, 700 mg, Intravenous, Q24H, David Cruz DO, 700 mg at 11/11/24 1400 epoetin omar (PROCRIT) injection 15,000 Units, 15,000 Units, Subcutaneous, Once per day on Monday, Chelsea Cunningham MD, 15,000 Units at 11/11/24 0832 famotidine (PEPCID) tablet 20 mg, 20 mg, Oral, 2 times per day, David Cruz, DO, 20 mg at 11/12/24 0730 heparin (porcine) injection 5,000 Units, 5,000 Units, Subcutaneous, Q12H CRISTIN, David Cruz DO,5,000 Units at 11/12/24729 linaclotide (LINZESS) capsule 145 mcg, 145 mcg, Oral, 2 times per day, David Cruz DO, 145 mcg at 11/12/24729 magnesium hydroxide (MILK OF MAGNESIA) 400 MG/5ML suspension 30 mL, 30 mL, Oral, Daily PRN, David Real DO magnesium oxide tablet 800 mg, 800 mg, Oral, 3 times per day, Suze Jenkins MD, 800 mg at melatonin tablet 3 mg, 3 mg, Oral, Nightly, Betty Dias DO, 3 mg at 11/11/242019 methocarbamol (ROBAXIN) tablet 750 mg, 750 mg, Oral, TID PRN, David Cruz DO, 750 mg at 11/12/24 112 midodrine (PROAMATINE) tablet 10 mg, 10 mg, Oral, 3 times per day, Barry Palmer APRN, 10 mg at 11/12/24534 mirtazapine (REMERON) tablet 7.5 mg, 7.5 mg, Oral, Nightly, David Cruz DO, 7.5 mg at 11/11/242020 multivitamin w/ minerals (THERA M PLUS) tablet/capsule 1 tablet, 1 tablet, Oral, Once a day, David Cruz DO, 1 tablet at 11/12/24730 ondansetron ODT (ZOFRAN-ODT) disintegrating tablet 4 mg, 4 mg, Oral, Q6H PRN, Suze Jenkins MD, 4 mg at 11/09/24 1335 oxyCODONE (ROXICODONE) immediate release tablet 10 mg, 10 mg, Oral, Q6H PRN, Suze Jenkins MD, 10 mg at 11/12/24 112 pantoprazole (PROTONIX) EC/DR tablet 40 mg, 40 mg, Oral, BID AC, David Cruz DO, 40 mg at 11/12/24 07 simethicone (MYLICON) chewable tablet 80 mg, 80 mg, Oral, 4x Daily, Betty Dias DO, 80 mg at 11/12/24 0731 [START ON 11/13/2024] sulfamethoxazole-trimethoprim (BACTRIM) 800-160 MG per tablet double-strength 1 tablet, 1 tablet, Oral, Once per day on Monday, Chelsea Cunningham MD tacrolimus (PROGRAF) capsule 5 mg, 5 mg, Oral, 2 times per day, David Cruz, DO, 5 mg at 11/12/24 0534 tamsulosin (FLOMAX) 24 hr capsule 0.4 mg, 0.4 mg, Oral, Nightly, David Cruz, DO, 0.4 mg at 11/11/242019 traZODone (DESYREL) tablet 50 mg, 50 mg, Oral, Nightly, Betty Dias DO, 50 mg at 11/11/242020 ursodiol (ACTIGALL) capsule 300 mg, 300 mg, Oral, 3 times per day, David Cruz DO, 300 mg at 11/12/24730 valGANciclovir (VALCYTE) tablet 900 mg, 900 mg, Oral, 2 times per day, David Cruz DO, 900 mgat 11/12/2431 PHYSICAL EXAM: Vital signs: Vitals: 11/11/242 11/12/24 0428 11/12/24 0530 11/12/24 0720 BP: 136/81 106/67 119/73 Pulse: 65 61 61 Resp: 16 17 Temp: 98.3 ??F (36.8 ??C) 98.2 ??F (36.8 ??C) TempSrc: Oral Oral SpO2: 93% 94% Weight: 142 lb 12.8 oz (64.8 kg) Height: Weight: Admit Weight: 159 lb (72.1 kg) Latest Weight: 142 lb 12.8 oz (64.8 kg) BP 119/73 Pulse 61 Temp 98.2 ??F (36.8 ??C) (Oral) Resp 17 Ht 5' 9 (1.753 m) Wt 142 lb 12.8 oz (64.8 kg) SpO2 94% BMI 21.09 kg/m?? General Appearance: Alert, cooperative, no distress, appears stated age Head: Normocephalic, without obvious abnormality, atraumatic Eyes: PERRL, conjunctiva/corneas clear, EOM's intact, fundi benign, both eyes Ears: Normal TM's and external ear canals, both ears Nose: Nares normal, septum midline, mucosa normal, no drainage or sinus tenderness Throat: Lips, mucosa, and tongue normal; teeth and gums normal Neck: Supple, symmetrical, trachea midline, no adenopathy, thyroid: not enlarged, symmetric, no tenderness/mass/nodules, no carotid bruit or JVD Back: Symmetric, no curvature, ROM normal, no CVA tenderness Lungs: Clear to auscultation bilaterally, respirations unlabored Chest Wall: No tenderness or deformity Heart: Regular rate and rhythm, S1, S2 normal, no murmur, rub or gallop Abdomen: Soft, non-tender, bowel sounds active all four quadrants, no masses, no organomegaly, s/p DBD transplant and recent paracentesis, l thoracentesis, VRE stent infection Genitalia: Normal male Rectal: Normal tone, normal prostate, no masses or tenderness; guaiac negative stool Extremities: Extremities normal, atraumatic, no cyanosis or edema Pulses: 2+ and symmetric Skin: Skin color, texture, turgor normal, no rashes or lesions Lymph nodes: Cervical, supraclavicular, and axillary nodes normal Neurologic: Normal Lab Results: CBC: Recent Labs Lab Units 11/11/24 0506 WBC k/uL 3.22* RBC AUTO m/uL 2.60* HEMOGLOBIN g/dL 8.0* HEMATOCRIT % 25.6* MCV fL 98.5 PLATELETS AUTO k/uL 561* CBC with Differential: Recent Labs Lab Units 11/11/24 0506 WBC k/uL 3.22* RBC AUTO m/uL 2.60* HEMOGLOBIN g/dL 8.0* HEMATOCRIT % 25.6* PLATELETS AUTO k/uL 561* MCV fL 98.5 MCH pg 30.8 MCHC g/dL 31.3 [ H/H: Recent Labs Lab Units 11/11/24 0506 HEMOGLOBIN g/dL 8.0* HEMATOCRIT % 25.6* BMP: Recent Labs Lab Units 11/11/24 0506 SODIUM mmol/L 136 POTASSIUM mmol/L 5.0 CHLORIDE mmol/L 100 CO2 mmol/L 24 BUN mg/dL 18 CREATININE mg/dL 1.52* GLUCOSE mg/dL 90 CALCIUM mg/dL 8.8 ANION GAP mmol/L 12 MG/PHOS: Recent Labs Lab Units 11/11/24 0506 MAGNESIUM mg/dL 2.2 PHOSPHORUS mg/dL 3.9 CKMB: Invalid input(s): CKMB;2 PT/INR: PTT: BNP: Troponin: Last 3 Troponin: Invalid input(s): TROPONINI;3 U/A: Recent Labs Lab Units 11/08/24 1823 COLOR UA Yellow CLARITY UA Clear GLUCOSE UR Negative BILIRUBIN URINE Negative KETONES U MG/DL Negative BLOOD U Negative UROBILINOGEN UA Normal NITRITE UA Negative CMP: Recent Labs Lab Units 11/11/24 0506 SODIUM mmol/L 136 POTASSIUM mmol/L 5.0 CHLORIDE mmol/L 100 CO2 mmol/L 24 BUN mg/dL 18 CREATININE mg/dL 1.52* GLUCOSE mg/dL 90 PROTEIN TOTAL g/dL 5.8* CALCIUM mg/dL 8.8 ALBUMIN g/dL 3.0* BILIRUBIN, TOTAL mg/dL 0.3 ALKALINE PHOSPHATASE U/L 151* ALT U/L 11 AST U/L 19 ANION GAP mmol/L 12 LFT's: Recent Labs Lab Units 11/11/24 0506 PROTEIN TOTAL g/dL 5.8* ALKALINE PHOSPHATASE U/L 151* AST U/L 19 ALT U/L 11 Calcium: Recent Labs Lab Units 11/11/24 0506 CALCIUM mg/dL 8.8 Ionized Calcium: Invalid input(s): IONCA ABG: Invalid input(s): BDEF HgBA1c: Lipid Panel: Invalid input(s): LDLCALCU , CHOLHDLR TSH: Fibrinogen: Glucose Last 3 Days: Imaging: I have reviewed all lmaging and testing from the last 24 hrs CALI IRVING MD 11/12/24 11:52 AM EDT * David Cruz DO - 11/12/2024 9:07 AM EDT [facility] PM&R Progress Note 11/12/2024 ASSESSMENT: Critical Illness Myopathy Metastatic HCC S/p DCD OLT, 09/09 Biliary stricture of transplanted liver Acute blood loss Anemia, PRBC 09/27 (Crossmatch T and B cell weak positive ), 10/26 Parainfluenza pneumonia infection Fluid overload VRE Biliary stent infection Ascites s/p perihepatic collection aspiration and drain placement, 10/17. 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 Functional Bowel Incontinence Protein Calorie Malnutrition Gait Abnormality Ambulatory Dysfunction ADL Dysfunction Debility Cognitive Impairment Constipation Coordination Deficit Spasticity Skin Wound Neuropathic Pain Chronic Pain Balance Deficits PLAN: IM, ID, Nephro, Pulm, Cardio Consult Psychologist consultation and evaluation, Melatonin, Trazodone; remeron Biweekly immunosuppression labs, viral surveillance titre's weekly and biweekly IDT with liver transplant team ATB Daptomycin IV to complete 11/12 Prophylaxis: Acyclovir, Bactrim, Nystatin swish/swallow completes 09/30 Immunosuppression: prograf bid, cellcept bid, prednisone completed 09/30 Midodrine tid to keep BP normal Bowel Program: Miralax, Colace, Senna, Dulcolax Glycemic Control:Lispro Bladder Retraining and eval for high PVR and IC if >300, Flomax Nutritional Support - Adult Diet Regular; 7 Regular (Regular Texture); 0 Thin (All Liquids) Adult NPO Diet Meds with Sips of Water GI prophylaxis: Protonix Fall Prevention Isolation: No active isolations Pain management: Acetaminophen, Oxycodone, Lidocaine, Robaxin DVT prophylaxis: Lovenox 11/05 add butrans 5mcg patch for chronic back pain 11/06 IM getting u/s to asses for ascites 11/07 get KUB 11/08 add linzess bid 11/11 ERCP on Monday, NPO orders and heparin hold orders placed 11/12 incr butrans to 10mcg patch Rehab Issues: Potential barriers to progress- complex medical issues, significant impairments. Rehab plan- PT/OT for ADLs, transfer, and gait training, ROM , strengthening and balance exercises,assistive device prescription. Rehab nursing for skin care, bowel and bladder care, administration of medication, patient and family education. Case management for care coordination and discharge.Therapy schedule will be 3 hrs/day x 5-6 days/week or 15 hrs/7 days in special situations. Weekly Interdisciplinary Rehab Team Meeting to address barriers to discharge and coordination of care. Subjective: Pain not controlled, constant spine pain. Will incr butrans to 10mcg for pain relief. Current Function: 11/12/2024: SM Functional Status PT Data (since 11/09/2024) Value Time User Bed Mobility Level of Assist Modified Independent 11/12/2024 8:18 AM Samuel Kaiser, OT Bed Mobility Comment Mod I for supine > sit 11/12/2024 8:18 AM Samuel Kaiser, OT Transfer to Wheelchair 11/11/2024 12:18 PM Anh Medrano, PT Transfer from Bed 11/11/2024 12:18 PM Anh Medrano PT Transfer Level of Assist Contact Guard; Close Supervision 11/11/2024 3:12 PM Belinda Larsen, PT Ambulation Level of Assist Contact Guard 11/11/2024 2:53 PM Belinda Larsen, PT Distance (feet) 200 11/11/2024 12:18 PM Anh Medrano, PT Gait Analysis Ambulated ~15' x2 using RW, CGA; demonstrated good navigation of device along turns in room, sufficient balance and strength Ambulated 1 lap around gym using RW, CGA-SUP; demonstrated increased speed and step length with effective heel strike, admitted to dizziness during final steps to approach w/c 11/11/2024 2:53 PM Belinda Larsen, PT WC Analysis PT dependently transported patient room <> therapy gym, utilizing this time as a therapeutic rest break between activities. 11/11/2024 2:53 PM Belinda Larsen, PT Objective: Physical Exam: VS: BP 106/67 Pulse 61 Temp 98.3 ??F (36.8 ??C) (Oral) Resp 16 Ht 5' 9 (1.753 m) Wt 142 lb 12.8 oz (64.8 kg) SpO2 93% BMI 21.09 kg/m?? General: NAD CV: No c/c/e Pulm: No audible wheezing or stridor Abdomen: soft, non-tender, No g/r/r Extremities: Full ROM in all limbs, Tone normal in all limbs Wound Management: Wound Management Orders (From admission, onward) Start Ordered 11/01/24 1400 Wound Management: Use Associated Wounds location ([place]); Wound prevention Weekly Comments: Apply foam. Assess under foam with each skin assessment. Question Answer Comment Wound Location Use Associated Wounds location [facility] [place] Wound Management Wound prevention 10/31/24 1115 10/31/24 0933 Wound Management: Use Associated Wounds location (ALL WOUNDS/PREVENTION); Wound care per algorithm Per algorithm Question Answer Comment Wound Location Use Associated Wounds location ALL WOUNDS/PREVENTION Wound Management Wound care per algorithm 10/31/24 0932 Section GG CARE Scores - Current All Therapy Physical Therapy Car Transfer Car Transfer - CARE Score: 3 (11/11/241217) Walk 10 Feet Walk 10 Feet - CARE Score: 6 (11/11/241217) Walk 50 Feet with Two Turns Walk 50 Feet with Two Turns - CARE Score: 6 (11/11/241217) Walk 150 Feet Walk 150 Feet - CARE Score: 4 (11/11/241217) Walking 10 Feet on Uneven Surfaces Walking 10 Feet on Uneven Surfaces - CARE Score: 4 (11/11/241217) 1 Step (Curb) 1 Step (Curb) - CARE Score: 4 (11/11/241217) 4 Steps 4 Steps - CARE Score: 4 (11/11/241217) 12 Steps 12 Steps - CARE Score: 88 (11/11/241217) Picking Up Object Picking Up Object - CARE Score: 6 (11/11/241217) Wheel 50 Feet with Two Turns Wheel 50 Feet with Two Turns - CARE Score: 1 (11/11/241217) Wheel 150 Feet Wheel 150 Feet - CARE Score: 1 (11/11/241217) Occupational Therapy Eating Eating - CARE Score: 5 (11/11/24956) Oral Hygiene Oral Hygiene - CARE Score: 6 (11/11/24956) Toileting Hygiene Toileting Hygiene - CARE Score: 3 (11/11/24956) Shower/Bathe Self Shower/Bathe Self - CARE Score: 3 (11/11/24956) Upper Body Dressing Upper Body Dressing - CARE Score: 3 (11/11/24956) Lower Body Dressing Lower Body Dressing - CARE Score: 3 (11/11/24956) Putting On/Taking Off Footwear Putting On/Taking Off Footwear - CARE Score: 3 (11/11/24956) Roll Left and Right Roll Left and Right - CARE Score: 6 (11/11/24956) Sit to Lying Sit to Lying - CARE Score: 6 (11/11/24956) Lying to Sitting on Side of Bed Lying to Sitting on Side of Bed - CARE Score: 6 (11/11/24956) Sit to Stand Sit to Stand - CARE Score: 4 (11/11/24956) Chair/Udb-kg-Sknea Transfer Chair/Iyb-hw-Txuso Transfer - CARE Score: 4 (11/11/24956) Toilet Transfer Toilet Transfer - CARE Score: 4 (11/11/24956) Speech Therapy Expression of Ideas and Wants Expression of Ideas and Wants: Without difficulty (10/31/24822) Understanding Verbal and Non-Verbal Content Understanding Verbal and Non-Verbal Content: Understands (10/31/24822) BIMS Brief Interview for Mental Status (BIMS) Repetition of Three Words (First Attempt): 3 (10/31/24822) Temporal Orientation: Year: Correct (10/31/24822) Temporal Orientation: Month: Accurate within 5 days (10/31/24822) Temporal Orientation: Day: Correct (10/31/24822) Recall: Sock : Yes, no cue required (10/31/24822) Recall: Blue : Yes, no cue required (10/31/24822) Recall: Bed : Yes, after cueing ( a piece of furniture ) (10/31/24822) BIMS Summary Score: 14 (10/31/24822) Memory/Recall Ability Labs: Most recent labs reviewed. CBC with Differential: Recent Labs Lab Units 11/11/24 0506 WBC k/uL 3.22* RBC AUTO m/uL 2.60* HEMOGLOBIN g/dL 8.0* HEMATOCRIT % 25.6* PLATELETS AUTO k/uL 561* MCV fL 98.5 MCH pg 30.8 MCHC g/dL 31.3 [ MG/PHOS: Recent Labs Lab Units 11/11/24 0506 MAGNESIUM mg/dL 2.2 PHOSPHORUS mg/dL 3.9 PT/INR: CMP: Recent Labs Lab Units 11/11/24 0506 SODIUM mmol/L 136 POTASSIUM mmol/L 5.0 CHLORIDE mmol/L 100 CO2 mmol/L 24 BUN mg/dL 18 CREATININE mg/dL 1.52* GLUCOSE mg/dL 90 PROTEIN TOTAL g/dL 5.8* CALCIUM mg/dL 8.8 ALBUMIN g/dL 3.0* BILIRUBIN, TOTAL mg/dL 0.3 ALKALINE PHOSPHATASE U/L 151* ALT U/L 11 AST U/L 19 ANION GAP mmol/L 12 LFT's: Recent Labs Lab Units 11/11/24 0506 PROTEIN TOTAL g/dL 5.8* ALKALINE PHOSPHATASE U/L 151* AST U/L 19 ALT U/L 11 Glucose Last 3 Days: Imaging: US abdomen limited Result Date: 11/06/2024 * * *Final Report* * * DATE OF EXAM: Nov 06 2024 3:45PM [id number] - US ABDOMEN LTD / PROCEDURE REASON: ASCITES SURVEY * * * * Physician Interpretation * * * * Clinical information: Ascites Ascites survey was performed. Images were obtained and stored in a permanent archive. Small to moderate volume ascites within the right lower quadrant, left upper quadrant, and left lower quadrant. Ascites contains multiple septations. Partially visualized small right-sided pleural effusion. Impression: Small to moderate volume ascites containing multiple septations Stripper Apprentice: [employer] Transcribe Date/Time: Nov 06 2024 4:32P Dictated by : AMARILIS MACK MD This examination was interpreted and the report reviewed and electronically signed by: AMARILIS MACK MD on Nov 06 2024 4:33PM EST XR lumbar spine 1 vws Result Date: 11/04/2024 * * *Final Report* * * DATE OF EXAM: Nov 04 2024 3:30PM [id number] [id number] - XR LUMBAR 1V / PROCEDURE REASON: 11/24 acute on chronic back pain with hx of compression fractures * * * * Physician Interpretation * * * * Information: Back pain, compression fractures Limited AP only view of the lumbar spine was obtained. Study correlated with CT scan dated 10/24/2024. Compression deformities involving T11 and T12, visualization is limited. No definite lumbar compression fractures. Lumbar disc spaces are grossly maintained. Impression: Limited AP only study with suboptimal visualization of the lumbar spine. No definite lumbar compression fracture. T11 and T12 compression fractures better seen on prior CT scan. Stripper Apprentice: [employer] Transcribe Date/Time: Nov 04 2024 4:31P Dictated by: AMARILIS MACK MD This examination was interpreted and the report reviewed and electronically signed by: AMARILIS MACK MD on Nov 04 2024 4:32PM EST XR CHEST 1 VWS Result Date: 11/04/2024 * * *Final Report* * * DATE OF EXAM: Nov 01 2024 2:39PM [id number] [id number] - XR CHEST 1V FRONTAL / PROCEDURE REASON: pleural effusion * * * * Physician Interpretation * * * * EXAMINATION:CHEST RADIOGRAPH (PORTABLE SINGLE VIEW AP) EXAM DATE/TIME: 11/01/2024 2:39 PM INDICATIONS: Shortnessof breath. Pleural effusion MQ: XCPR_5 COMPARISON: 10/14/2024 RESULT: Lines, tubes, and devices: Interval placement of a right PICC line, with the distal tip in the lower SVC/upper atrium. Lungs and pleura: Interval decrease in opacification of the right lower lung zone, compatible with decrease inright pleural effusion and right basilar opacities. Small to moderate amount of airspace opacities still persists in the right lower lung zone; atelectasis/scarring versus infiltrates. Small amount of patchy opacities in the left lower lung zone that could be related to mild subsegmental atelectasis. A tiny left pleural effusion cannot be excluded. Prominence of interstitial markings raising the possibility of mild pulmonary vascular congestion. Cardiomediastinal silhouette: Stable cardiomediastinal silhouette. No acute osseous abnormality. IMPRESSION: Interval decrease in the right pleural effusion and right basilar opacities. Possible mild pulmonary vascular congestion. Stripper Apprentice: [employer] Transcribe Date/Time: Nov 04 2024 8:27A Dictated by : CHARIS WHALEN MD This examination was interpreted and the report reviewed and electronically signed by: CHARIS WHALEN MD on Nov 04 2024 8:28AM EST US abdomen limited Result Date: 11/03/2024 * * *Final Report* * * DATE OF EXAM: Nov 03 2024 1:28PM S0U 1064 - US ABDOMEN LTD / PROCEDURE REASON: evaluate for ascites * * * * Physician Interpretation * * * * EXAMINATION: US ABDOMEN LTD HISTORY: evaluate for ascites TECHNIQUE: Limited evaluation of the abdomen to evaluate for ascites . Images were obtained and stored in a permanent archive. COMPARISON: 10/29/2024 ultrasound RESULT: See Impression. - IMPRESSION: Small to moderate volume of multiloculated ascites with numerous septations is similar to prior study. Stripper Apprentice: [employer] Transcribe Date/Time: Nov 03 2024 2:13P Dictated by : MD YOLANDA This examination was interpreted and the report reviewed and electronically signed by: JIM LUZ MD on Nov 03 2024 2:14PM EST US DOPPLER COMPLETE Result Date: 10/29/2024 * * *Final Report* * * DATE OF EXAM: Oct 29 2024 3:39PM [facility] 1033 - US DOPPLER COMPLETE / PROCEDURE REASON: Liver transplant * * * * Physician Interpretation * * * * EXAMINATION:LIVER VASCULAR ULTRASOUND WITH DOPPLER IMAGING CLINICAL HISTORY: 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 Images were obtained and stored in a permanent archive. MQ: USLV_1 COMPARISON:CT 10/24/2024, ultrasound 10/19/2024. RESULT: Sonographic Findings: Pancreas: Normal sonographic appearance. Portions obscured: tail Liver: Echotexture: Normal, homogeneous. Echogenicity: Normal Surface contour: Smooth Lesions: None. Biliary: No intrahepatic biliary duct dilation. Stable pneumobilia. CBD: 0.8 cm at the hilum. Gallbladder: Prior cholecystectomy. Gallbladder fossa partially obscured with drain in place. Right Kidney: No hydronephrosis. Spleen: Craniocaudal length 9.4 cm, normal. There are no splenic lesions. Other: Moderate volume loculated ascites, increased from prior ultrasound 10/19/2024 HEPATIC VASCULATURE: PORTAL SYSTEM: -Splenic Vein: Patent with antegrade flow (towards the liver). -Main PV: Patent with phasic antegrade flow (towards liver). 44-58 cm/sec. [id number] cm/sec. -Right anterior PV: Patent with phasic antegrade flow (towards liver). 25.5 cm/sec. Pr eviously 30 cm/sec -Right posterior PV: Patent with phasic antegrade flow (towards liver). 30 cm/sec. Previously 32 cm/sec -Left PV: Patent with phasic antegrade flow (towards liver). 19 cm/sec. Previously 26 cm/sec HEPATIC ARTERIES: - Main THIBODEAUX: Normal waveform PSV: 51-57 cm/sec. RI: 0.74-0.75. Previ ously 70-84 cm/sec. RI: 0.76-0.80 - Right anterior THIBODEAUX: Normal waveform PSV: 59 cm/sec. RI: 0.68. Previously 66 cm/sec. RI: 0.72 - Right posterior THIBODEAUX: Normal waveform PSV: 81 cm/sec. RI: 0.74. Previously 66 cm/sec. RI: 0.77 - Left THIBODEAUX: Normal waveform PSV: 60 cm/sec. RI: 0.70. Previously 73 cm/sec. RI: 0.77 HEPATIC VEINS: -Left: Patent with triphasic waveform. -Middle: Patent with triphasic waveform. -Right: Patent with triphasic waveform. IVC: Patent with normal, phasic wave form. IMPRESSION: Patent hepatic vasculature with appropriately directed flow. Mildly increased multiloculated ascites. Stripper Apprentice: [employer] Transcribe Date/Time: Oct 29 2024 3:46P Dictated by : MARIO YU MD This examination was interpreted and the report reviewed and electronically signed by: AMARILIS ADAMSON MD on Oct 29 2024 4:11PM EST US ABD LIVER VASCULAR TRANSPLANT () Result Date: 10/29/2024 * * *Final Report* * * DATE OF EXAM: Oct 29 2024 3:00PM [facility] 0685 - ABD LIVER VASCULAR TRANSPLANT/ PROCEDURE REASON: Liver transplant * * * * Physician Interpretation * * * *EXAMINATION: LIVER VASCULAR ULTRASOUND WITH DOPPLER IMAGING CLINICAL HISTORY: 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 Images were obtained and stored in a permanent archive. MQ: USLV_1 COMPARISON: CT 10/24/2024, ultrasound 10/19/2024. RESULT: Sonographic Findings: Pancreas: Normal sonographic appearance. Portions obscured: tail Liver: Echotexture: Normal, homogeneous. Echogenicity: Normal Surface contour: Smooth Lesions: None. Biliary: No intrahepatic biliary duct dilation. Stable pneumobilia. CBD: 0.8 cm at the hilum. Gallbladder: Prior cholecystectomy. Gallbladder fossa partially obscured with drain in place. Right Kidney: No hydronephrosis. Spleen: Craniocaudal length 9.4cm, normal. There are no splenic lesions. Other: Moderate volume loculated ascites, increased from p rior ultrasound 10/19/2024 HEPATIC VASCULATURE: PORTAL SYSTEM: -Splenic Vein: Patent with antegradeflow (towards the liver). -Main PV: Patent with phasic antegrade flow (towards liver). 44-58 cm/sec. Previously 38-53 cm/sec. -Right anterior PV: Patent with phasic antegrade flow (towards liver). 25.5 cm/sec. Previously 30 cm/sec -Right posterior PV: Patent with phasic antegrade flow (towards liver). 30 cm/sec. Previously 32 cm/sec -Left PV: Patent with phasic antegrade flow (towards liver). 19 cm/sec. Previously 26 cm/sec HEPATIC ARTERIES: - Main THIBODEAUX: Normal waveform PSV: 51-57 cm/sec. RI: 0.74-0.75. Previously 70-84 cm/sec. RI: 0.76-0.80 - Right anterior THIBODEAUX: Normal waveform PSV: 59 cm/sec. RI: 0.68. Previously 66 cm/sec. RI: 0.72 - Right posterior THIBODEAUX: Normal waveform PSV: 81 cm/sec. RI: 0.74. Previously 66 cm/sec. RI: 0.77 - Left THIBODEAUX: Normal waveform PSV: 60 cm/sec. RI: 0.70. Previously 73 cm/sec. RI: 0.77 HEPATIC VEINS: -Left: Patent with triphasic waveform. -Middle: Patent with triphasic waveform. -Right: Patent with triphasic waveform. IVC: Patent with normal, phasic wave form. IMPRESSION: Patent hepatic vasculature with appropriately directed flow. Mildly increased multiloculated ascites. Stripper Apprentice: [facility] Transcribe Date/Time: Oct 29 2024 3:46P Dictated by : MARIO YU MD This examination was interpreted and the report reviewed and electronically signed by: AMARILIS ADAMSON MD on Oct 29 2024 4:11PM EST DAVID CRUZ DO Interdisciplinary team conference today for which we reviewed and dicussed plan of care for which changes might have been made , refer to my signed attestation for our comprehensive team conference document. Over 50 minutes involved today with team conference interaction, relayed team conference discussionto the patient, face time, floor time and coordination of care. * Rachel Silverman LD - 11/11/2024 4:47 PM EDT Medical Nutrition Therapy Progress Note Date: 11/11/2024 Time: 4:47 PM EDT Patient Name: Charles Blandon Date of : 1955 Sex: Male Room/Bed: 1135/1135-A Significant Information: Marginal improvement with po intake during this admission. Does not care for the food, supplying pt with snacks to supplement diet. She reiterated how poorly pt was eating at home, too, prior totransplant. Continues to decline supplements. Recent weights would suggest a significant weight loss- unsure if correct. Pt states he has had a BM since the last documented one on 11/07. Relevant Medications: Scheduled Meds: Scheduled/Continuous Medications Scheduled aspirin EC tablet 81 mg 81 mg, PO, Once a day Buprenorphine (BUTRANS) patch 5 mcg (And Linked Group #1) 5 mcg, TD, Q7 Days Check Patch Placement (And Linked Group #1) No Dose/Rate, TD, BID DAPTOmycin (CUBICIN) 700 mg in sodium chloride 0.9 % 114 mL IVPB 700 mg, IV, Q24H epoetin omar (PROCRIT) injection 15,000 Units 15,000 Units, SC, 3x weekly famotidine (PEPCID) tablet 20 mg 20 mg, PO, BID heparin (porcine) injection 5,000 Units 5,000 Units, SC, Q12H CRISTIN linaclotide (LINZESS) capsule 145 mcg 145 mcg, PO, BID magnesium oxide tablet 800 mg 800 mg, PO, TID melatonin tablet 3 mg 3 mg, PO, Nightly midodrine (PROAMATINE) tablet 10 mg 10 mg, PO, TID mirtazapine (REMERON) tablet 7.5 mg 7.5 mg, PO, Nightly multivitamin w/ minerals (THERA M PLUS) tablet/capsule 1 tablet 1 tablet, PO, Once a day pantoprazole (PROTONIX) EC/DR tablet 40 mg 40 mg, PO, BID AC simethicone (MYLICON) chewable tablet 80 mg 80 mg, PO, 4x Daily sulfamethoxazole-trimethoprim (BACTRIM) 800-160 MG per tablet double-strength 1 tablet 1 tablet, PO, 3x weekly tacrolimus (PROGRAF) capsule 5 mg 5 mg, PO, BID tamsulosin (FLOMAX) 24 hr capsule 0.4 mg 0.4 mg, PO, Nightly traZODone (DESYREL) tablet 50 mg 50 mg, PO, Nightly ursodiol (ACTIGALL) capsule 300 mg 300 mg, PO, TID valGANciclovir (VALCYTE) tablet 900 mg 900 mg, PO, BID Continuous Infusions: PRN Meds:. acetaminophen Alum & Mag Hydroxide-Simeth bisacodyl magnesium hydroxide methocarbamol ondansetron ODT oxyCODONE Relevant Labs: CBC with Differential: Recent Labs Lab Units 11/11/24 0506 WBC k/uL 3.22* RBC AUTO m/uL 2.60* HEMOGLOBIN g/dL 8.0* HEMATOCRIT % 25.6* PLATELETS AUTO k/uL 561* MCV fL 98.5 MCH pg 30.8 MCHC g/dL 31.3 [ BMP: Recent Labs Lab Units 11/11/24 0506 SODIUM mmol/L 136 POTASSIUM mmol/L 5.0 CHLORIDE mmol/L 100 CO2 mmol/L 24 BUN mg/dL 18 CREATININE mg/dL 1.52* GLUCOSE mg/dL 90 CALCIUM mg/dL 8.8 ANION GAP mmol/L 12 MG/PHOS: Recent Labs Lab Units 11/11/24 0506 MAGNESIUM mg/dL 2.2 PHOSPHORUS mg/dL 3.9 Weight: Admit Weight: 159 lb (72.1 kg) Latest Weight: 142 lb (64.4 kg) (11/11/24 0400) Weight Comment: suggest reweigh Diet Order: Diet Orders (From admission, onward) Start Ordered 11/13/24 0001 Adult NPO Diet Meds with Sips of Water Diet effective midnight End/Expires: Until Specified Question: NPO Status: Answer: Meds with Sips of Water 11/11/24 1500 10/30/242006 Adult Diet Regular; 7 Regular (Regular Texture); 0 Thin (All Liquids) Diet effective now End/Expires: Until Specified References: [facility] Website Question Answer Comment Diet Type: Regular Diet Texture: 7 Regular (Regular Texture) Liquid Consistency: 0 Thin (All Liquids) 10/30/242005 Nutrition Intake Current: Nutrition Intake Current Average Meal Intake (%): 50 Difficulty Chewing or Swallowing: No Mealtime/Eating Behaviors: feeds self Tolerance: Fair (Comment) Other Information/Communication: Marginal improvement in po intake from last week Assistance with Feeding: Assist with Setup Nutrition Concerns: Nutrition Related Concerns: Poor Appetite; Constipation; Other (11/11/241645) Constipation Concerns: started on linzess last week (11/11/241645) Nutrition Needs: Total Energy Estimated Needs: 2,190-2,555 laura/d Method for Estimating Needs: 30-35 laura/kg Total Protein Estimated Needs: 95-124g/d Method for Estimating Needs: 1.3-1.7g/kg Total Fluid Estimated Needs: 2,190-2,555ml/d Method for Estimating Needs: 1ml/laura Nutrition Support: No Care Plans: Plan of Care - Nutrition Care Plans 1 Author: MARYELLEN Gorman Service: -- Author Type: Registered Dietitian Filed: 11/11/2024 4:47 PM Date of Service: 11/11/2024 4:46 PM Status: Signed Finish Saw Operator: MARYELLEN Gorman (Registered Dietitian) Problem: Malnutrition Description: Inadequate intake of protein and/or energy sufficient to negatively impact growth/development, and/or result in loss of fat or muscle stores. Related to: Inadequate energy intake, Interpretation of weight loss from baseline, Body fat loss, Muscle mass loss, Fluid accumulation, and acute illness/hospitalization As evidenced by: NFPE, self report of poor appetite, weight loss, transplant/surgery Goal: Increase Caloric Intake Outcome: Progressing Flowsheets (Taken 11/01/2024 1107) Nutrition Education Application: Nutrition-related laboratory result interpretation education Collaboration and Referral of Nutrition Care: Collaboration with Interdisciplinary Team Meals and Snacks: General healthful diet Medical Food Supplement Therapy: (pt declines Ensure or other protein modular options) Commercial beverage/Oral nutrition supplement Vitamin and Mineral Supplement Therapy: (recommend multivitamin, on MagOx) Multi-Vitamin Mineral Feeding Assistance Management: Menu selection assistance Nutrition-Related Medication Management: (remeron) Nutrition-related medication Indicator/Monitor: pt to meet >= 75% estimated needs monitor weights, I/O, labwork/lytes, bowel function/stooling pattern Note: Pt is progressing towards meeting > 75% estimated needs Additional Comments/Recommendations: Suggest reweigh, continue to encourage po intake/hydration. RACHEL SILVERMAN LD 11/11/24 4:47 PM EDT * Chelsea Cunningham MD - 11/11/2024 4:37 PM EDT Nephrology Progress Note Subjective: Interval History: Charles Blandon none Patient medications: Reviewed, see medication history. Objective: Vital signs in last 24 hours: Temp: [97.7 ??F (36.5 ??C)-98 ??F (36.7 ??C)] 97.7 ??F (36.5 ??C) Pulse: [59-98] 98 Resp: [17] 17 BP: (115-129)/(68-83) 122/73 Intake/Output last 3 shifts: I/O last 3 completed shifts: In: 120 [P.O.:120] Out: 510 [Drains:10] Intake/Output this shift: I/O this shift: In: 220 [P.O.:220] Out: - Weight: Wt Readings from Last 3 Encounters: 11/11/24 142 lb (64.4 kg) 10/07/24 164 lb 4.8 oz (74.5 kg) Physical Exam: General appearance: alert, appears stated age, and cooperative Lungs: clear to auscultation bilaterally Heart: regular rate and rhythm, S1, S2 normal, no murmur, click, rub or gallop Abdomen: soft, non-tender; bowel sounds normal; no masses, no organomegaly Extremities: extremities normal, atraumatic, no cyanosis or edema Pulses: 2+ and symmetric Skin: Skin color, texture, turgor normal. No rashes or lesions Neurologic: Grossly normal Labs: CBC: Recent Labs Lab Units 11/11/24 0506 WBC k/uL 3.22* RBC AUTO m/uL 2.60* HEMOGLOBIN g/dL 8.0* HEMATOCRIT % 25.6* MCV fL 98.5 PLATELETS AUTO k/uL 561* BMP: Recent Labs Lab Units 11/11/24 0506 SODIUM mmol/L 136 POTASSIUM mmol/L 5.0 CHLORIDE mmol/L 100 CO2 mmol/L 24 BUN mg/dL 18 CREATININE mg/dL 1.52* GLUCOSE mg/dL 90 CALCIUM mg/dL 8.8 ANION GAP mmol/L 12 MG/PHOS: Recent Labs Lab Units 11/11/24 0506 MAGNESIUM mg/dL 2.2 PHOSPHORUS mg/dL 3.9 Assessment/ Plan: Active Problems: Critical illness myopathy LOS: 12 days He reports his symptoms are improving with treatment. Charles Blandon is a 69 year old male with a past medical history CKD 3 baseline creatinine 1.0-1.1,eGFR 60's-70's, HHT, Tipton's esophagus, and ETOH cirrhosis complicated by portal HTN, ascites, HE, large EV, and recently diagnosed HCC. He was admitted on to [facility] on 08/23 with altered mental status and hyponatremia. He was subsequently listed for liver transplant on 09/04/24. Now s/p DCD-OLT on 09/09/24. Patient was treated for RENATE Cr >2.8, resolved 09/16. Status improved and discharged to [facility] on 09/29. Patient returned to [facility] for admission on 10/07 w increased Shortness of Breath anddiarrhea. Pulmonary consulted and did not recommend thoracentesis but diuresis. Zosyn started for PNA coverage. RVP (+) parainfluenza and supportive care given. Required ERCP 10/15. Stay was complicated by Bile leak, image guided abdominal drain placement into collection with posituve cultures for E.Faecium. Started on IV dapotmycin, ordered until 11/12/24. Developed left pleural effusion requiringdiuresis and thoracentesis on 10/14 as well as gastric gaseous distension and scattered gas filled nondilated small bowel and colon requiring NG tube placement. ECHO on 10/17 showed an EF of 55% with normal LV function. Stay was further complicated by severe back pain, MRI obtained per neurology. 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 Pt discharged to [facility] on 10/30. RENATE secondary to prerenal azotemia in setting of hypotension (resolved), now with RENATE on 11/07 secondary to prerenal azotemia in setting of hypotension and possible drug mediated in setting of bactrimuse on, CKD stage 3 Baseline Cr 0.8-0.9 Cr up to 1.5 on 11/07 and patient was given albumin infusions in setting of positive orthostatic VS. IM team ordered 0.5 L NS November 08, no further needs for IV fluids Cr at plateau levels above baseline, continue to hold bactrim We will further trend kidney function HTN Currently off antihypertensives With hypotension of dysautonomia on 11/06 Orthostatic VS with positive results, drop in BP noted while sitting and standing. Good responses to x 1 dose of albumin on 11/06 and scheduled midodrine. BP soft and patient was given albumin infusions and IV fluids on different occasions. BP more stable now, patient denies any symptoms. Continue Midodrine 10 mg TID Diuretics on hold, Continue to hold Continue to follow the trend of BP HFpEF Fluid overload and anasarca Chest x-ray with components of edema Ultrasound abdomen showed moderate ascites Last echo 10/17 with EF 55% Required paracentesis at different occasions last October 30 Hold lasix 40 mg twice a day, in presence of RENATE Previously completed Metolazone Keep close eye on respiratory and fluid volume status off diuretics Euvolemic on exam, good urine output noted Monitor urine output and daily weight Anemia Hgb stable, on MRAGO therapy will continue to trend Liver Transplant September 04, 2024 On bactrim and tacrolimus and valcyte Bactrim on hold in presence of RENATE, restart on 11/13 Will continue to follow the trend of kidney function Biliary stent infection On daptomycin until 11/13 Hypomagnesemia Stable, Continue scheduled PO mag oxide 800 mg TID will continue to follow the trend. Case discussed with Dr. Cunningham Thank you for your consult We will follow along with you SIGNATURE: BARRY PALMER APRN PATIENT NAME: Charles Blandon DATE: November 11, 2024 TIME: 4:37 PM EDT PAGER: * David Cruz DO - 11/11/2024 3:36 PM EDT [facility] PM&R Progress Note 11/11/2024 ASSESSMENT: Critical Illness Myopathy Metastatic HCC S/p DCD OLT, 09/09 Biliary stricture of transplanted liver Acute blood loss Anemia, PRBC 09/27 (Crossmatch T and B cell weak positive ), 10/26 Parainfluenza pneumonia infection Fluid overload VRE Biliary stent infection Ascites s/p perihepatic collection aspiration and drain placement, 10/17. 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 Functional Bowel Incontinence Protein Calorie Malnutrition Gait Abnormality Ambulatory Dysfunction ADL Dysfunction Debility Cognitive Impairment Constipation Coordination Deficit Spasticity Skin Wound Neuropathic Pain Chronic Pain Balance Deficits PLAN: IM, ID, Nephro, Pulm, Cardio Consult Psychologist consultation and evaluation, Melatonin, Trazodone; remeron Biweekly immunosuppression labs, viral surveillance titre's weekly and biweekly IDT with liver transplant team ATB Daptomycin IV to complete 11/12 Prophylaxis: Acyclovir, Bactrim, Nystatin swish/swallow completes 09/30 Immunosuppression: prograf bid, cellcept bid, prednisone completed 09/30 Midodrine tid to keep BP normal Bowel Program: Miralax, Colace, Senna, Dulcolax Glycemic Control:Lispro Bladder Retraining and eval for high PVR and IC if >300, Flomax Nutritional Support - Adult Diet Regular; 7 Regular (Regular Texture); 0 Thin (All Liquids) Adult NPO Diet Meds with Sips of Water GI prophylaxis: Protonix Fall Prevention Isolation: No active isolations Pain management: Acetaminophen, Oxycodone, Lidocaine, Robaxin DVT prophylaxis: Lovenox 11/05 add butrans 5mcg patch for chronic back pain 11/06 IM getting u/s to asses for ascites 11/07 get KUB 11/08 add linzess bid 11/11 ERCP on Monday, NPO orders and heparin hold orders placed Rehab Issues: Potential barriers to progress- complex medical issues, significant impairments. Rehab plan- PT/OT for ADLs, transfer, and gait training, ROM , strengthening and balance exercises,assistive device prescription. Rehab nursing for skin care, bowel and bladder care, administration of medication, patient and family education. Case management for care coordination and discharge.Therapy schedule will be 3 hrs/day x 5-6 days/week or 15 hrs/7 days in special situations. Weekly Interdisciplinary Rehab Team Meeting to address barriers to discharge and coordination of care. Subjective: D/w patient and , ERCP planned this Monday. 10 pt ROS negative for - chills, fatigue, fever,malaise, night sweats, sleep disturbance, or THIBODEAUX, CP, SOB, diarrhea Current Function: 11/11/2024: SM Functional Status PT Data (since 11/08/2024) Value Time User Bed Mobility Level of Assist Modified Independent 11/11/2024 2:53 PM Belinda Larsen PT Bed Mobility Comment Supine <> short sitting EOB with HOB elevated, mod I. Able to then jessica BL slip-on shoes prior to transfer and then upon return to bed at end of session. 11/11/2024 3:14 PM Belinda Larsen PT Transfer to Wheelchair 11/11/2024 12:18 PM Anh Medrano, PT Transfer from Bed 11/11/2024 12:18 PM Anh Medrano PT Transfer Level of Assist Contact Guard; Close Supervision 11/11/2024 3:12 PM Belinda Larsen PT Ambulation Level of Assist Contact Guard 11/11/2024 2:53 PM Belinda Larsen PT Distance (feet) 200 11/11/2024 12:18 PM Anh Medrano, PT Gait Analysis Ambulated ~15' x2 using RW, CGA; demonstrated good navigation of device along turns in room, sufficient balance and strength Ambulated 1 lap around gym using RW, CGA-SUP; demonstrated increased speed and step length with effective heel strike, admitted to dizziness during final steps to approach w/c 11/11/2024 2:53 PM Belinda Larsen PT WC Analysis PT dependently transported patient room <> therapy gym, utilizing this time as a therapeutic rest break between activities. 11/11/2024 2:53 PM Belinda Larsen, PT Objective: Physical Exam: VS: BP 122/73 Comment: worst dizziness during session after stepping activity on foam pad Pulse98 Temp 97.7 ??F (36.5 ??C) (Oral) Resp 17 Ht 5' 9 (1.753 m) Wt 142 lb (64.4 kg) SpO2 92% BMI 20.97 kg/m?? General: NAD CV: No c/c/e Pulm: No audible wheezing or stridor Abdomen: soft, non-tender, No g/r/r Extremities: Full ROM in all limbs, Tone normal in all limbs Wound Management: Wound Management Orders (From admission, onward) Start Ordered 11/01/24 1400 Wound Management: Use Associated Wounds location ([place]); Wound prevention Weekly Comments: Apply foam. Assess under foam with each skin assessment. Question Answer Comment Wound Location Use Associated Wounds location [place] Wound Management Wound prevention 10/31/24 1115 10/31/24 0933 Wound Management: Use Associated Wounds location (ALL WOUN[place]/PREVENTION); Wound care per algorithm Per algorithm Question Answer Comment Wound Location Use Associated Wounds location ALL WOUN[place]/PREVENTION Wound Management Wound care per algorithm 10/31/24 0932 Section GG CARE Scores - Current All Therapy Physical Therapy Car Transfer Car Transfer - CARE Score: 3 (11/11/241217) Walk 10 Feet Walk 10 Feet - CARE Score: 6 (11/11/241217) Walk 50 Feet with Two Turns Walk 50 Feet with Two Turns - CARE Score: 6 (11/11/241217) Walk 150 Feet Walk 150 Feet - CARE Score: 4 (11/11/241217) Walking 10 Feet on Uneven Surfaces Walking 10 Feet on Uneven Surfaces - CARE Score: 4 (11/11/241217) 1 Step (Curb) 1 Step (Curb) - CARE Score: 4 (11/11/241217) 4 Steps 4 Steps - CARE Score: 4 (11/11/241217) 12 Steps 12 Steps - CARE Score: 88 (11/11/241217) Picking Up Object Picking Up Object - CARE Score: 6 (11/11/241217) Wheel 50 Feet with Two Turns Wheel 50 Feet with Two Turns - CARE Score: 1 (11/11/241217) Wheel 150 Feet Wheel 150 Feet - CARE Score: 1 (11/11/241217) Occupational Therapy Eating Eating - CARE Score: 5 (11/11/24956) Oral Hygiene Oral Hygiene - CARE Score: 6 (11/11/24956) Toileting Hygiene Toileting Hygiene - CARE Score: 3 (11/11/24956) Shower/Bathe Self Shower/Bathe Self - CARE Score: 3 (11/11/24956) Upper Body Dressing Upper Body Dressing - CARE Score: 3 (11/11/24956) Lower Body Dressing Lower Body Dressing - CARE Score: 3 (11/11/24956) Putting On/Taking Off Footwear Putting On/Taking Off Footwear - CARE Score: 3 (11/11/24956) Roll Left and Right Roll Left and Right - CARE Score: 6 (11/11/24956) Sit to Lying Sit to Lying - CARE Score: 6 (11/11/24956) Lying to Sitting on Side of Bed Lying to Sitting on Side of Bed - CARE Score: 6 (11/11/24956) Sit to Stand Sit to Stand - CARE Score: 4 (11/11/24956) Chair/Lke-bn-Rwvbl Transfer Chair/Otg-sq-Tnrpr Transfer - CARE Score: 4 (11/11/24956) Toilet Transfer Toilet Transfer - CARE Score: 4 (11/11/24956) Speech Therapy Expression of Ideas and Wants Expression of Ideas and Wants: Without difficulty (10/31/24822) Understanding Verbal and Non-Verbal Content Understanding Verbal and Non-Verbal Content: Understands (10/31/24822) BIMS Brief Interview for Mental Status (BIMS) Repetition of Three Words (First Attempt): 3 (10/31/24822) Temporal Orientation: Year: Correct (10/31/24822) Temporal Orientation: Month: Accurate within 5 days (10/31/24822) Temporal Orientation: Day: Correct (10/31/24822) Recall: Sock : Yes, no cue required (10/31/24822) Recall: Blue : Yes, no cue required (10/31/24822) Recall: Bed : Yes, after cueing ( a piece of furniture ) (10/31/24822) BIMS Summary Score: 14 (10/31/24822) Memory/Recall Ability Labs: Most recent labs reviewed. CBC with Differential: Recent Labs Lab Units 11/11/24 0506 WBC k/uL 3.22* RBC AUTO m/uL 2.60* HEMOGLOBIN g/dL 8.0* HEMATOCRIT % 25.6* PLATELETS AUTO k/uL 561* MCV fL 98.5 MCH pg 30.8 MCHC g/dL 31.3 [ MG/PHOS: Recent Labs Lab Units 11/11/24 0506 MAGNESIUM mg/dL 2.2 PHOSPHORUS mg/dL 3.9 PT/INR: CMP: Recent Labs Lab Units 11/11/24 0506 SODIUM mmol/L 136 POTASSIUM mmol/L 5.0 CHLORIDE mmol/L 100 CO2 mmol/L 24 BUN mg/dL 18 CREATININE mg/dL 1.52* GLUCOSE mg/dL 90 PROTEIN TOTAL g/dL 5.8* CALCIUM mg/dL 8.8 ALBUMIN g/dL 3.0* BILIRUBIN, TOTAL mg/dL 0.3 ALKALINE PHOSPHATASE U/L 151* ALT U/L 11 AST U/L 19 ANION GAP mmol/L 12 LFT's: Recent Labs Lab Units 11/11/24 0506 PROTEIN TOTAL g/dL 5.8* ALKALINE PHOSPHATASE U/L 151* AST U/L 19 ALT U/L 11 Glucose Last 3 Days: Imaging: US abdomen limited Result Date: 11/06/2024 * * *Final Report* * * DATE OF EXAM: Nov 06 2024 3:45PM S0U [id number] - US ABDOMEN LTD / PROCEDURE REASON: ASCITES SURVEY * * * * Physician Interpretation * * * * Clinical information: Ascites Ascites survey was performed. Images were obtained and stored in a permanent archive. Small to moderate volume ascites within the right lower quadrant, left upper quadrant, and left lower quadrant. Ascites contains multiple septations. Partially visualized small right-sided pleural effusion. Impression: Small to moderate volume ascites containing multiple septations Stripper Apprentice: SRINI Transcribe Date/Time: Nov 06 2024 4:32P Dictated by : AMARILIS MACK MD This examination was interpreted and the report reviewed and electronically signed by: AMARILIS MACK MD on Nov 06 2024 4:33PM EST XR lumbar spine 1 vws Result Date: 11/04/2024 * * *Final Report* * * DATE OF EXAM: Nov 04 2024 3:30PM [id number] [id number] - XR LUMBAR 1V / PROCEDURE REASON: 11/24 acute on chronic back pain with hx of compression fractures * * * * Physician Interpretation * * * * Information: Back pain, compression fractures Limited AP only view of the lumbar spine was obtained. Study correlated with CT scan dated 10/24/2024. Compression deformities involving T11 and T12, visualization is limited. No definite lumbar compression fractures. Lumbar disc spaces are grossly maintained. Impression: Limited AP only study with suboptimal visualization of the lumbar spine. No definite lumbar compression fracture. T11 and T12 compression fractures better seen on prior CT scan. Stripper Apprentice: SRINI Transcribe Date/Time: Nov 04 2024 4:31P Dictated by: AMARILIS MACK MD This examination was interpreted and the report reviewed and electronically signed by: AMARILIS MACK MD on Nov 04 2024 4:32PM EST XR CHEST 1 VWS Result Date: 11/04/2024 * * *Final Report* * * DATE OF EXAM: Nov 01 2024 2:39PM [id number] [id number] - XR CHEST 1V FRONTAL / PROCEDURE REASON: pleural effusion * * * * Physician Interpretation * * * * EXAMINATION:CHEST RADIOGRAPH (PORTABLE SINGLE VIEW AP) EXAM DATE/TIME: 11/01/2024 2:39 PM INDICATIONS: Shortnessof breath. Pleural effusion MQ: XCPR_5 COMPARISON: 10/14/2024 RESULT: Lines, tubes, and devices: Interval placement of a right PICC line, with the distal tip in the lower SVC/upper atrium. Lungs and pleura: Interval decrease in opacification of the right lower lung zone, compatible with decrease inright pleural effusion and right basilar opacities. Small to moderate amount of airspace opacities still persists in the right lower lung zone; atelectasis/scarring versus infiltrates. Small amount of patchy opacities in the left lower lung zone that could be related to mild subsegmental atelectasis. A tiny left pleural effusion cannot be excluded. Prominence of interstitial markings raising the possibility of mild pulmonary vascular congestion. Cardiomediastinal silhouette: Stable cardiomediastinal silhouette. No acute osseous abnormality. IMPRESSION: Interval decrease in the right pleural effusion and right basilar opacities. Possible mild pulmonary vascular congestion. Stripper Apprentice: [facility]ITAL[facility] Transcribe Date/Time: Nov 04 2024 8:27A Dictated by : CHARIS WHALEN MD This examination was interpreted and the report reviewed and electronically signed by: CHARIS WHALEN MD on Nov 04 2024 8:28AM EST US abdomen limited Result Date: 11/03/2024 * * *Final Report* * * DATE OF EXAM: Nov 03 2024 1:28PM S0U 1064 - US ABDOMEN LTD / PROCEDURE REASON: evaluate for ascites * * * * Physician Interpretation * * * * EXAMINATION: US ABDOMEN LTD HISTORY: evaluate for ascites TECHNIQUE: Limited evaluation of the abdomen to evaluate for ascites . Images were obtained and stored in a permanent archive. COMPARISON: 10/29/2024 ultrasound RESULT: See Impression. - IMPRESSION: Small to moderate volume of multiloculated ascites with numerous septations is similar to prior study. Stripper Apprentice: SRINI Transcribe Date/Time: Nov 03 2024 2:13P Dictated by : MD YOLANDA This examination was interpreted and the report reviewed and electronically signed by: JIM LUZ MD on Nov 03 2024 2:14PM EST US DOPPLER COMPLETE Result Date: 10/29/2024 * * *Final Report* * * DATE OF EXAM: Oct 29 2024 3:39PM [facility] 1033 - US DOPPLER COMPLETE / PROCEDURE REASON: Liver transplant * * * * Physician Interpretation * * * * EXAMINATION:LIVER VASCULAR ULTRASOUND WITH DOPPLER IMAGING CLINICAL HISTORY: 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 Images were obtained and stored in a permanent archive. MQ: USLV_1 COMPARISON:CT 10/24/2024, ultrasound 10/19/2024. RESULT: Sonographic Findings: Pancreas: Normal sonographic appearance. Portions obscured: tail Liver: Echotexture: Normal, homogeneous. Echogenicity: Normal Surface contour: Smooth Lesions: None. Biliary: No intrahepatic biliary duct dilation. Stable pneumobilia. CBD: 0.8 cm at the hilum. Gallbladder: Prior cholecystectomy. Gallbladder fossa partially obscured with drain in place. Right Kidney: No hydronephrosis. Spleen: Craniocaudal length 9.4 cm, normal. There are no splenic lesions. Other: Moderate volume loculated ascites, increased from prior ultrasound 10/19/2024 HEPATIC VASCULATURE: PORTAL SYSTEM: -Splenic Vein: Patent with antegrade flow (towards the liver). -Main PV: Patent with phasic antegrade flow (towards liver). 44-58 cm/sec. Previously 38-53 cm/sec. -Right anterior PV: Patent with phasic antegrade flow (towards liver). 25.5 cm/sec. Pre viously 30 cm/sec -Right posterior PV: Patent with phasic antegrade flow (towards liver). 30 cm/sec. Previously 32 cm/sec -Left PV: Patent with phasic antegrade flow (towards liver). 19 cm/sec. Previously 26 cm/sec HEPATIC ARTERIES: - Main THIBODEAUX: Normal waveform PSV: 51-57 cm/sec. RI: 0.74-0.75. Previo usly 70-84 cm/sec. RI: 0.76-0.80 - Right anterior THIBODEAUX: Normal waveform PSV: 59 cm/sec. RI: 0.68. Previously 66 cm/sec. RI: 0.72 - Right posterior THIBODEAUX: Normal waveform PSV: 81 cm/sec. RI: 0.74. Previously 66 cm/sec. RI: 0.77 - Left THIBODEAUX: Normal waveform PSV: 60 cm/sec. RI: 0.70. Previously 73 cm/sec. RI: 0.77 HEPATIC VEINS: -Left: Patent with triphasic waveform. -Middle: Patent with triphasic waveform. -Right: Patent with triphasic waveform. IVC: Patent with normal, phasic wave form. IMPRESSION: Patent hepatic vasculature with appropriately directed flow. Mildly increased multiloculated ascites. Stripper Apprentice: [facility] Transcribe Date/Time: Oct 29 2024 3:46P Dictated by : MARIO YU MD This examination was interpreted and the report reviewed and electronically signed by: AMARILIS ADAMSON MD on Oct 29 2024 4:11PM [facility] LIVER VASCULAR TRANSPLANT () Result Date: 10/29/2024 * * *Final Report* * * DATE OF EXAM: Oct 29 2024 3:00PM U [id number] - [facility] LIVER VASCULAR TRANSPLANT/ PROCEDURE REASON: Liver transplant * * * * Physician Interpretation * * * *EXAMINATION: LIVER VASCULAR ULTRASOUND WITH DOPPLER IMAGING CLINICAL HISTORY: 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 Images were obtained and stored in a permanent archive. MQ: USLV_1 COMPARISON: CT 10/24/2024, ultrasound 10/19/2024. RESULT: Sonographic Findings: Pancreas: Normal sonographic appearance. Portions obscured: tail Liver: Echotexture: Normal, homogeneous. Echogenicity: Normal Surface contour: Smooth Lesions: None. Biliary: No intrahepatic biliary duct dilation. Stable pneumobilia. CBD: 0.8 cm at the hilum. Gallbladder: Prior cholecystectomy. Gallbladder fossa partially obscured with drain in place. Right Kidney: No hydronephrosis. Spleen: Craniocaudal length 9.4cm, normal. There are no splenic lesions. Other: Moderate volume loculated ascites, increased from p rior ultrasound 10/19/2024 HEPATIC VASCULATURE: PORTAL SYSTEM: -Splenic Vein: Patent with antegradeflow (towards the liver). -Main PV: Patent with phasic antegrade flow (towards liver). 44-58 cm/sec. Previously 38-53 cm/sec. -Right anterior PV: Patent with phasic antegrade flow (towards liver). 25.5 cm/sec. Previously 30 cm/sec -Right posterior PV: Patent with phasic antegrade flow (towards liver). 30 cm/sec. Previously 32 cm/sec -Left PV: Patent with phasic antegrade flow (towards liver). 19 cm/sec. Previously 26 cm/sec HEPATIC ARTERIES: - Main THIBODEAUX: Normal waveform PSV: 51-57 cm/sec. RI: 0.74-0.75. Previously 70-84 cm/sec. RI: 0.76-0.80 - Right anterior THIBODEAUX: Normal waveform PSV: 59 cm/sec. RI: 0.68. Previously 66 cm/sec. RI: 0.72 - Right posterior THIBODEAUX: Normal waveform PSV: 81 cm/sec. RI: 0.74. Previously 66 cm/sec. RI: 0.77 - Left THIBODEAUX: Normal waveform PSV: 60 cm/sec. RI: 0.70. [id number] cm/sec. RI: 0.77 HEPATIC VEINS: -Left: Patent with triphasic waveform. -Middle: Patent with triph asic waveform. -Right: Patent with triphasic waveform. IVC: Patent with normal, phasic wave form. IMPRESSION: Patent hepatic vasculature with appropriately directed flow. Mildly increased multiloculated ascites. Stripper Apprentice: [employer] Transcribe Date/Time: Oct 29 2024 3:46P Dictated by : MARIO YU MD This examination was interpreted and the report reviewed and electronically signed by: AMARILIS ADAMSON MD on Oct 29 2024 4:11PM DAVID MALIK DO High complexity of service: including either time > 50 minutes involving therapy documentation review, independent interpretations of tests, face time, floor time, review of recent diagnostics tests with interpretation, interpretation of diagnostics tests to formulate new plans or observe current stability, coordination of care and/or family discussion of management of care. * Suze Jenkins MD - 11/11/2024 12:50 PM EDT Medicine Follow Up Note [facility] Patient identification: Name: Charles Blandon : 1955 Admitted: 10/30/2024 7:01 PM Subjective: Seen resting in bed. ROS: +Acute on chronic back pain +Abdominal distention Objective: BP 115/83 Pulse 98 Temp 97.7 ??F (36.5 ??C) (Oral) Resp 17 Ht 5' 9 (1.753 m) Wt 142 lb (64.4 kg) SpO2 92% BMI 20.97 kg/m?? Intake/Output last 3 shifts: I/O last 3 completed shifts: In: 120 [P.O.:120] Out: 510 [Drains:10] Intake/Output this shift: I/O this shift: In: 220 [P.O.:220] Out: - Weight: Weight change: 1 lb (0.454 kg) Physical Exam: General: Awake, alert. In mild distress HEENT: NCAT Lungs: CTA b/l Heart; S1 S2 normal Abdomen: non-distended Extremities: no edema Assessment/Plan: Hx of Liver transplantation CBD stent Bile leak (s/p perihepatic aspiration and drain placement) Continue daptomycin for 4 week course Repeat ERCP in 1 month Continue Bactrim, Prograf, Valcyte Monitor CMV Continue baby aspirin due to thrombocytosis Ascites survey-small to moderate ascites VRE (vancomycin-resistant Enterococci) infection Continue Daptomycin, monitor CK (10) Cytomegalovirus (CMV) viremia Continue Valcyte Follow CMV levels qMon Fluid overload Lasix on hold 2/2 RENATE Trans daily weights RENATE No retention on bladder scans Lasix held Given 500 NS bolus UA is negative renal sono no acute process F/u with nephrology Nausea & vomiting Ileus without SBO Abdominal distention (small ascites) Continue regular diet Continue bowel regimen Zofran PRN KUB-non obstructive, gas filled loops Simethicone 4x daily Chronic bilateral low back pain without sciatica History of T11 and T12 compression fractures Consulted Neurosurgery - not an appropriate surgical candidate Pain control PT/OT Lumbar x-ray-no acute abnormalities Vertigo CT brain 10/07: negative MRI brain 10/24: negative for acute abnormality follow up with Vestibular Neurologist, Dr. Roach Moderate-sized loculated right hydropneumothorax. 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 Functional Bowel Incontinence Protein Calorie Malnutrition Gait Abnormality Ambulatory Dysfunction ADL Dysfunction Debility Cognitive Impairment Constipation Coordination Deficit Spasticity Skin Wound Neuropathic Pain Chronic Pain Balance Deficits PLAN: IM, ID, Nephro, Pulm, Cardio Consult Psychologist consultation and evaluation, Melatonin, Trazodone; remeron Biweekly immunosuppression labs, viral surveillance titre's weekly and biweekly IDT with liver transplant team ATB Daptomycin IV to complete 11/12 Prophylaxis: Acyclovir, Bactrim, Nystatin swish/swallow completes 09/30 Immunosuppression: prograf bid, cellcept bid, prednisone completed 09/30 Midodrine tid to keep BP normal Bowel Program: Miralax, Colace, Senna, Dulcolax Glycemic Control:Lispro Bladder Retraining and eval for high PVR and IC if >300, Flomax Nutritional Support - Adult Diet Regular; 7 Regular (Regular Texture); 0 Thin (All Liquids) GI prophylaxis: Protonix Fall Prevention Isolation: No active isolations Pain management: Acetaminophen, Oxycodone, Lidocaine, Robaxin DVT prophylaxis: Lovenox 11/05 add butrans 5mcg patch for chronic back pain 11/06 IM getting u/s to asses for ascites 11/07 get KUB 11/08 add linzess bid Rehab Issues: Potential barriers to progress- complex medical issues, significant impairments. Rehab plan- PT/OT for ADLs, transfer, and gait training, ROM , strengthening and balance exercises,assistive device prescription. Rehab nursing for skin care, bowel and bladder care, administration of medication, patient and family education. Case management for care coordination and discharge.Therapy schedule will be 3 hrs/day x 5-6 days/week or 15 hrs/7 days in special situations. Weekly Interdisciplinary Rehab Team Meeting to address barriers to discharge and coordination of care. Subjective: 10 pt ROS negative for - chills, fatigue, fever, malaise, night sweats, sleep disturbance, or THIBODEAUX, CP, SOB, diarrhea. Therapy participation. Napping when seen earlier. Current Function: 11/10/2024: Functional Status PT Data (since 11/07/2024) Value Time User Bed Mobility Level of Assist Modified Independent 11/10/2024 3:57 PM Keesha Barba OT Bed Mobility Comment MOD I FOR TRANSFER TO/FROM EOB TO/FROM SUPINE IN BED/HOB ELEVATED 11/10/2024 3:57 PM Keesha Barba OT Transfer to Wheelchair 11/10/2024 9:01 AM Makenzie Emmanuel PT Transfer from Bed 11/10/2024 9:01 AM Makenzie Emmanuel, PT Transfer Level of Assist Close Supervision; Contact Guard 11/10/2024 9:01 AM Makenzie Emmanuel PT Ambulation Level of Assist Close Supervision; Contact Guard 11/10/2024 9:01 AM Makenzie Emmanuel PT Distance (feet) 360 + 65, 105 11/10/2024 9:01 AM Makenzie Emmanuel PT Gait Analysis Pt demos a fast camille with a reciprocal pattern. Pt with decreased safety with negotiating carpet, with back legs catching and flipping edge of rug. Therapist cues pt to stop and educated pt on safety with walker and throw rugs. Pt becoming agitated with cues for safety, states he does not have throw rugs. Pt did have one LOB with ambulation, self corrected. Therapist also educated pt to stand for 10-15 seconds before walking to monitor symptoms for orthostatic hypotension. Pt with mild agitation, stating I'm fine, but does comply 11/10/2024 9:01 AM Makenzie Emmanuel PT Objective: Physical Exam: VS: BP 129/81 Pulse 59 Temp 98 ??F (36.7 ??C) (Oral) Resp 17 Ht 5' 9 (1.753 m) Wt 141 lb(64 kg) SpO2 94% BMI 20.82 kg/m?? General: NAD; napping in bed comfortably CV: regular Pulm: No audible wheezing or stridor; respirations unlabored Abdomen: soft, Normal bowel sounds Extremities: non-tender calves Asleep but will arouse briefly; no acute neuro changes noted Wound Management: Wound Management Orders (From admission, onward) Start Ordered 11/01/24 1400 Wound Management: Use Associated Wounds location ([place]); Wound prevention Weekly Comments: Apply foam. Assess under foam with each skin assessment. Question Answer Comment Wound Location Use [facility] location [place] Wound Management Wound prevention 10/31/24 1115 10/31/24 0933 Wound Management: Use Associated Wounds location (ALL WOUNDS/PREVENTION); Wound care per algorithm Per algorithm Question Answer Comment Wound Location Use Associated Wounds location ALL WOUNDS/PREVENTION Wound Management Wound care per algorithm 10/31/24 0932 Section GG CARE Scores - Current All Therapy Physical Therapy Car Transfer Car Transfer - CARE Score: 3 (11/04/24 1534) Walk 10 Feet Walk 10 Feet - CARE Score: 4 (11/04/24 153) Walk 50 Feet with Two Turns Walk 50 Feet with Two Turns - CARE Score: 4 (11/04/24 153) Walk 150 Feet Walk 150 Feet - CARE Score: 4 (11/04/241533) Walking 10 Feet on Uneven Surfaces Walking 10 Feet on Uneven Surfaces - CARE Score: 88 (11/04/241533) 1 Step (Curb) 1 Step (Curb) - CARE Score: 4 (11/04/241533) 4 Steps 4 Steps - CARE Score: 4 (11/04/241533) 12 Steps 12 Steps - CARE Score: 88 (11/04/241533) Picking Up Object Picking Up Object - CARE Score: 88 (11/04/241533) Wheel 50 Feet with Two Turns Wheel 50 Feet with Two Turns - CARE Score: 1 (11/04/241533) Wheel 150 Feet Wheel 150 Feet - CARE Score: 1 (11/04/241533) Occupational Therapy Eating Eating - CARE Score: 5 (11/04/241543) Oral Hygiene Oral Hygiene - CARE Score: 5 (11/04/241543) Toileting Hygiene Toileting Hygiene - CARE Score: 2 (11/04/241543) Shower/Bathe Self Shower/Bathe Self - CARE Score: 2 (11/04/241543) Upper Body Dressing Upper Body Dressing - CARE Score: 3 (11/04/241543) Lower Body Dressing Lower Body Dressing - CARE Score: 2 (11/04/241543) Putting On/Taking Off Footwear Putting On/Taking Off Footwear - CARE Score: 3 (11/04/241543) Roll Left and Right Roll Left and Right - CARE Score: 3 (11/04/241543) Sit to Lying Sit to Lying - CARE Score: 4 (11/04/241543) Lying to Sitting on Side of Bed Lying to Sitting on Side of Bed - CARE Score: 4 (11/04/241543) Sit to Stand Sit to Stand - CARE Score: 4 (11/04/241543) Chair/Cti-xf-Smupp Transfer Chair/Pdx-yl-Gjpqo Transfer - CARE Score: 4 (11/04/241543) Toilet Transfer Toilet Transfer - CARE Score: 4 (11/04/241543) Speech Therapy Expression of Ideas and Wants Expression of Ideas and Wants: Without difficulty (10/31/24822) Understanding Verbal and Non-Verbal Content Understanding Verbal and Non-Verbal Content: Understands (10/31/24822) BIMS Brief Interview for Mental Status (BIMS) Repetition of Three Words (First Attempt): 3 (10/31/24822) Temporal Orientation: Year: Correct (10/31/24822) Temporal Orientation: Month: Accurate within 5 days (10/31/24822) Temporal Orientation: Day: Correct (10/31/24822) Recall: Sock : Yes, no cue required (10/31/24822) Recall: Blue : Yes, no cue required (10/31/24822) Recall: Bed : Yes, after cueing ( a piece of furniture ) (10/31/24822) BIMS Summary Score: 14 (10/31/24822) Memory/Recall Ability Labs: Most recent labs reviewed. CBC with Differential: Recent Labs Lab Units 11/07/24 1056 WBC k/uL 3.16* RBC AUTO m/uL 2.48* HEMOGLOBIN g/dL 7.5* HEMATOCRIT % 23.7* PLATELETS AUTO k/uL 580* MCV fL 95.6 MCH pg 30.2 MCHC g/dL 31.6 [ MG/PHOS: Recent Labs Lab Units 11/09/24 0605 MAGNESIUM mg/dL 2.1 PHOSPHORUS mg/dL 4.2 PT/INR: CMP: Recent Labs Lab Units 11/09/24 0605 11/08/24 0521 11/07/24 1056 SODIUM mmol/L 134* < > 136 POTASSIUM mmol/L 5.0 < > 4.8 CHLORIDE mmol/L 99 < > 96* CO2 mmol/L 25 < > 24 BUN mg/dL 18 < > 16 CREATININE mg/dL 1.46* < > 1.50* GLUCOSE mg/dL 85 < > 77 PROTEIN TOTAL g/dL -- -- 5.4* CALCIUM mg/dL 8.6 < > 8.8 ALBUMIN g/dL 3.0* -- 3.0* BILIRUBIN, TOTAL mg/dL -- -- 0.3 ALKALINE PHOSPHATASE U/L -- -- 156* ALT U/L -- -- 12 AST U/L -- -- 18 ANION GAP mmol/L 10 < > 16* < > = values in this interval not displayed. LFT's: Recent Labs Lab Units 11/07/24 1056 PROTEIN TOTAL g/dL 5.4* ALKALINE PHOSPHATASE U/L 156* AST U/L 18 ALT U/L 12 Glucose Last 3 Days: Imaging: US abdomen limited Result Date: 11/06/2024 * * *Final Report* * * DATE OF EXAM: Nov 06 2024 3:45PM S0U [id number] - US ABDOMEN LTD / PROCEDURE REASON: ASCITES SURVEY * * * * Physician Interpretation * * * * Clinical information: Ascites Ascites survey was performed. Images were obtained and stored in a permanent archive. Small to moderate volume ascites within the right lower quadrant, left upper quadrant, and left lower quadrant. Ascites contains multiple septations. Partially visualized small right-sided pleural effusion. Impression: Small to moderate volume ascites containing multiple septations Stripper Apprentice: [employer] Transcribe Date/Time: Nov 06 2024 4:32P Dictated by : AMARILIS MACK MD This examination was interpreted and the report reviewed and electronically signed by: AMARILIS MACK MD on Nov 06 2024 4:33PM EST XR lumbar spine 1 vws Result Date: 11/04/2024 * * *Final Report* * * DATE OF EXAM: Nov 04 2024 3:30PM [id number] [id number] - XR LUMBAR 1V / PROCEDURE REASON: 11/24 acute on chronic back pain with hx of compression fractures * * * * Physician Interpretation * * * * Information: Back pain, compression fractures Limited AP only view of the lumbar spine was obtained. Study correlated with CT scan dated 10/24/2024. Compression deformities involving T11 and T12, visualization is limited. No definite lumbar compression fractures. Lumbar disc spaces are grossly maintained. Impression: Limited AP only study with suboptimal visualization of the lumbar spine. No definite lumbar compression fracture. T11 and T12 compression fractures better seen on prior CT scan. Stripper Apprentice: [employer] Transcribe Date/Time: Nov 04 2024 4:31P Dictated by: AMARILIS MACK MD This examination was interpreted and the report reviewed and electronically signed by: AMARILIS MACK MD on Nov 04 2024 4:32PM EST XR CHEST 1 VWS Result Date: 11/04/2024 * * *Final Report* * * DATE OF EXAM: Nov 01 2024 2:39PM S0X [id number] - XR CHEST 1V FRONTAL / PROCEDURE REASON: pleural effusion * * * * Physician Interpretation * * * * EXAMINATION:CHEST RADIOGRAPH (PORTABLE SINGLE VIEW AP) EXAM DATE/TIME: 11/01/2024 2:39 PM INDICATIONS: Shortnessof breath. Pleural effusion MQ: XCPR_5 COMPARISON: 10/14/2024 RESULT: Lines, tubes, and devices: Interval placement of a right PICC line, with the distal tip in the lower SVC/upper atrium. Lungs and pleura: Interval decrease in opacification of the right lower lung zone, compatible with decrease inright pleural effusion and right basilar opacities. Small to moderate amount of airspace opacities still persists in the right lower lung zone; atelectasis/scarring versus infiltrates. Small amount of patchy opacities in the left lower lung zone that could be related to mild subsegmental atelectasis. A tiny left pleural effusion cannot be excluded. Prominence of interstitial markings raising the possibility of mild pulmonary vascular congestion. Cardiomediastinal silhouette: Stable cardiomediastinal silhouette. No acute osseous abnormality. IMPRESSION: Interval decrease in the right pleural effusion and right basilar opacities. Possible mild pulmonary vascular congestion. Stripper Apprentice: [employer] Transcribe Date/Time: Nov 04 2024 8:27A Dictated by : CHARIS WHALEN MD This examination was interpreted and the report reviewed and electronically signed by: CHARIS WHALEN MD on Nov 04 2024 8:28AM EST US abdomen limited Result Date: 11/03/2024 * * *Final Report* * * DATE OF EXAM: Nov 03 2024 1:28PM S0U 1064 - US ABDOMEN LTD / PROCEDURE REASON: evaluate for ascites * * * * Physician Interpretation * * * * EXAMINATION: US ABDOMEN LTD HISTORY: evaluate for ascites TECHNIQUE: Limited evaluation of the abdomen to evaluate for ascites . Images were obtained and stored in a permanent archive. COMPARISON: 10/29/2024 ultrasound RESULT: See Impression. - IMPRESSION: Small to moderate volume of multiloculated ascites with numerous septations is similar to prior study. Stripper Apprentice: [employer] Transcribe Date/Time: Nov 03 2024 2:13P Dictated by : MD YOLANDA This examination was interpreted and the report reviewed and electronically signed by: JIM LUZ MD on Nov 03 2024 2:14PM EST US DOPPLER COMPLETE Result Date: 10/29/2024 * * *Final Report* * * DATE OF EXAM: Oct 29 2024 3:39PM [facility] 1033 - US DOPPLER COMPLETE / PROCEDURE REASON: Liver transplant * * * * Physician Interpretation * * * * EXAMINATION:LIVER VASCULAR ULTRASOUND WITH DOPPLER IMAGING CLINICAL HISTORY: 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 Images were obtained and stored in a permanent archive. MQ: USLV_1 COMPARISON:CT 10/24/2024, ultrasound 10/19/2024. RESULT: Sonographic Findings: Pancreas: Normal sonographic appearance. Portions obscured: tail Liver: Echotexture: Normal, homogeneous. Echogenicity: Normal Surface contour: Smooth Lesions: None. Biliary: No intrahepatic biliary duct dilation. Stable pneumobilia. CBD: 0.8 cm at the hilum. Gallbladder: Prior cholecystectomy. Gallbladder fossa partially obscured with drain in place. Right Kidney: No hydronephrosis. Spleen: Craniocaudal length 9.4 cm, normal. There are no splenic lesions. Other: Moderate volume loculated ascites, increased from prior ultrasound 10/19/2024 HEPATIC VASCULATURE: PORTAL SYSTEM: -Splenic Vein: Patent with antegrade flow (towards the liver). -Main PV: Patent with phasic antegrade flow (towards liver). 44-58 cm/sec. Previously 38-53 cm/sec. -Right anterior PV: Patent with phasic antegrade flow (towards liver). 25.5 cm/sec. Pre viously 30 cm/sec -Right posterior PV: Patent with phasic antegrade flow (towards liver). 30 cm/sec. Previously 32 cm/sec -Left PV: Patent with phasic antegrade flow (towards liver). 19 cm/sec. Previously 26 cm/sec HEPATIC ARTERIES: - Main THIBODEAUX: Normal waveform PSV: 51-57 cm/sec. RI: 0.74-0.75. Previ ously 70-84 cm/sec. RI: 0.76-0.80 - Right anterior THIBODEAUX: Normal waveform PSV: 59 cm/sec. RI: 0.68. Previously 66 cm/sec. RI: 0.72 - Right posterior THIBODEAUX: Normal waveform PSV: 81 cm/sec. RI: 0.74. Previously 66 cm/sec. RI: 0.77 - Left THIBODEAUX: Normal waveform PSV: 60 cm/sec. RI: 0.70. Previously 73 cm/sec. RI: 0.77 HEPATIC VEINS: -Left: Patent with triphasic waveform. -Middle: Patent with triphasic waveform. -Right: Patent with triphasic waveform. IVC: Patent with normal, phasic wave form. IMPRESSION: Patent hepatic vasculature with appropriately directed flow. Mildly increased multiloculated ascites. Stripper Apprentice: [employer] Transcribe Date/Time: Oct 29 2024 3:46P Dictated by : MARIO YU MD This examination was interpreted and the report reviewed and electronically signed by: AMARILIS ADAMSON MD on Oct 29 2024 4:11PM EST US ABD LIVER VASCULAR TRANSPLANT () Result Date: 10/29/2024 * * *Final Report* * * DATE OF EXAM: Oct 29 2024 3:00PM [facility] 0685 - US ABD LIVER VASCULAR TRANSPLANT/ PROCEDURE REASON: Liver transplant * * * * Physician Interpretation * * * *EXAMINATION: LIVER VASCULAR ULTRASOUND WITH DOPPLER IMAGING CLINICAL HISTORY: 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 Images were obtained and stored in a permanent archive. MQ: USLV_1 COMPARISON: CT 10/24/2024, ultrasound 10/19/2024. RESULT: Sonographic Findings: Pancreas: Normal sonographic appearance. Portions obscured: tail Liver: Echotexture: Normal, homogeneous. Echogenicity: Normal Surface contour: Smooth Lesions: None. Biliary: No intrahepatic biliary duct dilation. Stable pneumobilia. CBD: 0.8 cm at the hilum. Gallbladder: Prior cholecystectomy. Gallbladder fossa partially obscured with drain in place. Right Kidney: No hydronephrosis. Spleen: Craniocaudal length 9.4cm, normal. There are no splenic lesions. Other: Moderate volume loculated ascites, increased from p rior ultrasound 10/19/2024 HEPATIC VASCULATURE: PORTAL SYSTEM: -Splenic Vein: Patent with antegradeflow (towards the liver). -Main PV: Patent with phasic antegrade flow (towards liver). 44-58 cm/sec. Previously 38-53 cm/sec. -Right anterior PV: Patent with phasic antegrade flow (towards liver). 25.5 cm/sec. Previously 30 cm/sec -Right posterior PV: Patent with phasic antegrade flow (towards liver). 30 cm/sec. Previously 32 cm/sec -Left PV: Patent with phasic antegrade flow (towards liver). 19 cm/sec. Previously 26 cm/sec HEPATIC ARTERIES: - Main THIBODEAUX: Normal waveform PSV: 51-57 cm/sec. RI: 0.74-0.75. Previously 70-84 cm/sec. RI: 0.76-0.80 - Right anterior THIBODEAUX: Normal waveform PSV: 59 cm/sec. RI: 0.68. Previously 66 cm/sec. RI: 0.72 - Right posterior THIBODEAUX: Normal waveform PSV: 81 cm/sec. RI: 0.74. Previously 66 cm/sec. RI: 0.77 - Left THIBODEAUX: Normal waveform PSV: 60 cm/sec. RI: 0.70. Previously 73 cm/sec. RI: 0.77 HEPATIC VEINS: -Left: Patent with triphasic waveform. -Middle: Patent with triphasic waveform. -Right: Patent with triphasic waveform. IVC: Patent with normal, phasic wave form. IMPRESSION: Patent hepatic vasculature with appropriately directed flow. Mildly increased multiloculated ascites. Stripper Apprentice: [facility] Transcribe Date/Time: Oct 29 2024 3:46P Dictated by : MARIO YU MD This examination was interpreted and the report reviewed and electronically signed by: AMARILIS ADAMSON MD on Oct 29 2024 4:11PM NAYA LOFTON MD * Cali Irving MD - 11/10/2024 12:28 PM EDT Cardiology Consult Progress Note Patient Name: Charles Blandon Patient : 1955 Date: 11/10/24 Time: 12:28 PM EDT Assessment & Plan: Active Problems: Critical illness myopathy HPI: Z94.1 DBD OLT A41.9 VRE on 3 weeks antibiotics, valcyte for CMV, daptomycin for VRE HPI: Charles Blandon is a 69 y.o. male who presents for rehab s/p liver transplant, US normal flow, biliary sphincterotomy and stent to CBD, VRE on daptomycin, valcyte for CMV, R sided locumated pleural effusion, s/p L thoracentesis, 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 male who presents for rehab s/p DBD OLT, on acyclovir bactrim tacrolimu, prednisone. Elevated BS on steroids treated by endocrine now on humalog not on treatement at home,presented with alcohol inudced cirrhosis, portal HTN, ascites, hepatic encephalopathy, esophageal va rices, hereditary telangiectasia and barets esophagus, basal cell excision 2016, recent hepatocellular carcinoma. Previously denied transplant suspected T10 mets from HCC but biopsy negative. R pleural efusion 09/10. Encephalopathy and ascites preoperative. Preop cath and diffuse CAD but a lession sign in circumflex FFR 0.79 after OM2 treated managed medically. Echocardiogram: Impression CONCLUSIONS: - Technically difficult exam due to suboptimal positioning and body habitus. - Exam indication: Shortness of Breath - Left ventricular systolic function is normal. EF = 55 ?? 5% (visual est.) - The right ventricle is normal in size. Right ventricular systolic function is normal. - Exam was compared with the prior echocardiographic exam performed on 05/01/2024. no change, except for plerual effusion not seen today Preop [facility] Charles Blandon is a 68 year old male with history of alcohol-related cirrhosis with portal hypertension, ascites, esophageal varices, GERD, Tipton's esophagus, gout, hyperlipidemia and hypertension who presents for left heart catheterization for preoperative planning of liver transplant. Access Point Sheath Size Hemostasis Method Right Radial Artery 5F Short Radial TR band + + DIAGNOSTIC FINDINGS + + Coronary Anatomy: Right Dominant Injection Site(s): Coronary Artery and Aorta LMT: The LMT has mild luminal irregularities. Additional Comment: The LMT is a large caliber segment that supplies the LAD and LCx. LAD: The mid LAD is narrowed 40 % - focal disease. The 2nd diagonal - moderate diffuse disease. Additional Comment: The LAD supplies two diagonal branches before reaching toward the apex. There is a 40% stenosis in the mid LAD between the two diagonal branches. The second diagonal, which is small caliber, has moderate diffuse disease. Cathworks FFR across LAD was not significant 0.95. There is mild diffuse disease elsewhere in the vessel. LCX: The proximal circumflex is narrowed 40 % - focal disease. The distal circumflex is narrowed 70 % - focal disease. Additional Comment: The LCx is a large caliber vessel that supplies two obtuse marginal branches (the first of which is very small caliber) before tapering. There is a 40% stenosis in the proximal LCx, a 70% stenosis of the continuation of the LCx after the OM2, and mild diffuse disease elsewhere. Of note, this LCx continuation is small caliber. RAMUS: Ramus Status: Not Applicable. RCA: The proximal RCA is narrowed 30 % - focal disease. The right posterior descending artery RCA is narrowed 70 % - focal disease. Additional Comment: The RCA is a large caliber, dominant vessel that supplies two RV marginal branches, a PDA then continues in the AV groove to supply a few small caliber PL branches. There is a 70% stenosis of the PDA that is positive by cathworks (FFR 0.79). Proximal RCA has 30% disease. mpression: 1. Right dominant coronary system 2. Obstructive coronary artery disease of the distal LCx (following takeoff of the OM2) and the rPDA. Recommended Treatment: Further discussion with transplant team. Plan: - Ongoing workup for liver transplantation - Multidisciplinary discussion regarding the management of obstructive coronary artery disease. - Optimal medical management of coronary artery disease per primary senior investment analyst. Discharge Summary 69 yo male with etoh cirrhosis c/b HCC s/p DCD OLT w placement of R chest drain on 09/09/[address] Nava . Pt dc to [place] 6/15 and returned for admission on 10/07 w increased Shortness of Breath and diarrhea. Pulmonary consulted and did not recommend thoracentesis but diuresis. Zosyn started for PNA coverage. RVP (+) parainfluenza and supportive care given. LV US (10/08) patent hepatic vasculature w appropriate directed flow. CBD wall thickening containing debris. Pt w notable rising alk phos through out hospital stay w decision to proceed w ERCP. ERCP (10/15) filling defects c/w stones and sludge.Single moderate biliary stricture found in common hepatic duct. Bile leak found eminating from the donor cystic duct remnant, appeared contained. Biliary tree swept and pus and debris found. Large stone proximal to the stenosis could not be removed. CT abd/pelvis w IV contrast (10/16) 5.2cm GB fossa collection, likely contained bile leak. Stable to slightly decreased size of geographic low attenuation in the R hepatic lobe, possibly inflammatory or evolving infarct. Patient underwent imaging guided abdominal drain placement into collection on 10/17. 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 ID consulted and Daptomycin was started. Patient had a repeat CT of the abdomen on 10/18 due to abdominal pain. It showed moderate ascites, left pleural effusion, stable right hydropneumothorax, and abdominal drain catheter with decompression of the gallbladder fossa collection. Patient with abdominal pain/distension with nausea and vomiting. Xray of the abdomen on 10/24 showedgastric gaseous distension and scattered gas filled nondilated small bowel and colon. An NG tube was placed on 10/24. He had a CT of the abdomen on 10/24 which showed decrease of the gallbladder fossa collection, moderate ascites, new peritoneal thickening/enhancement, and percutaneous drain. Patientwith improved symptoms so NG tube was removed on 10/25/24. He had a PICC line placed on 10/24/24 to continue antibiotic treatment until 11/12/24. Patient had developed chest pain with shortness of breath on 10/14. EKG on 10/14 showed normal sinus rhythm, HsTNT with no significant increase, and ECHO on 10/17 showed an EF of 55% with normal LV function. His chest pain and breathing improved. Patient had a thoracentesis on 10/14 with cultures being negative for infection and cytology was negative. Patient was given furosemide to manage edema whichimproved. Patient with history of T11 and T12 compression fractures. He reported increased back pain so consult with neurosurgery who recommended no further imaging and patient was currently not an appropriatesurgical candidate. Patient with dizziness and vertigo. MRI brain completed on 10/24 which showed noevidence of acute intracranial abnormality and sequela of chronic small vessel disease. Results of MRI brain were discussed with neurology who recommended outpatient followup with Vestibular Neurologist. 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 Consult with PM&R who recommended acute rehab. Patient was stable for discharge on 10/30/24. Current Facility-Administered Medications: acetaminophen (TYLENOL) 160 MG/5ML solution 500 mg, 500 mg, Oral, Q6H PRN, David Cruz DO, 500 mg at 11/08/24 1037 alum & mag hydroxide-simeth enteral suspension 15 mL, 15 mL, Oral, Q4H PRN, David Cruz, , 15 mL at 11/02/24 0520 aspirin EC tablet 81 mg, 81 mg, Oral, Once a day, David Cruz DO, 81 mg at 11/10/24 1022 bisacodyl (DULCOLAX) suppository 10 mg, 10 mg, Rectal, Daily PRN, David Cruz DO Buprenorphine (BUTRANS) patch 5 mcg, 5 mcg, Transdermal, Q7 Days, 5 mcg at 11/05/24 1322 AND Check Patch Placement, , Transdermal, BID, David Cruz DO, Check Patch Placement at 11/10/24 0702 DAPTOmycin (CUBICIN) 700 mg in sodium chloride 0.9 % 114 mL IVPB, 700 mg, Intravenous, Q24H, David Cruz DO, 700 mg at 11/09/24 1337 epoetin omar (PROCRIT) injection 15,000 Units, 15,000 Units, Subcutaneous, Once per day on Monday, Chelsea Cunningham MD, 15,000 Units at 11/08/24 0803 famotidine (PEPCID) tablet 20 mg, 20 mg, Oral, 2 times per day, David Cruz DO, 20 mg at 11/10/24 1023 heparin (porcine) injection 5,000 Units, 5,000 Units, Subcutaneous, Q12H CRISTIN, David Cruz DO,5,000 Units at 11/10/24 1020 linaclotide (LINZESS) capsule 145 mcg, 145 mcg, Oral, 2 times per day, David Cruz DO, 145 mcg at 11/10/24 1022 magnesium hydroxide (MILK OF MAGNESIA) 400 MG/5ML suspension 30 mL, 30 mL, Oral, Daily PRN, David Real DO magnesium oxide tablet 800 mg, 800 mg, Oral, 3 times per day, Suze Jenkins MD, 800 mg at melatonin tablet 3 mg, 3 mg, Oral, Nightly, Betty Dias DO, 3 mg at 11/09/242107 methocarbamol (ROBAXIN) tablet 750 mg, 750 mg, Oral, TID PRN, David Cruz DO, 750 mg at 11/10/24828 midodrine (PROAMATINE) tablet 10 mg, 10 mg, Oral, 3 times per day, Barry Palmer, PIE BAKER, 10 mg at 11/10/24607 mirtazapine (REMERON) tablet 7.5 mg, 7.5 mg, Oral, Nightly, David Cruz DO, 7.5 mg at 11/09/242108 multivitamin w/ minerals (THERA M PLUS) tablet/capsule 1 tablet, 1 tablet, Oral, Once a day, David Cruz DO, 1 tablet at 11/10/24 102 ondansetron ODT (ZOFRAN-ODT) disintegrating tablet 4 mg, 4 mg, Oral, Q6H PRN, Suze Jenkins MD, 4 mg at 11/09/24 1335 oxyCODONE (ROXICODONE) immediate release tablet 10 mg, 10 mg, Oral, Q6H PRN, Suze Jenkins MD, 10 mg at 11/10/24 0829 pantoprazole (PROTONIX) EC/DR tablet 40 mg, 40 mg, Oral, BID AC, David Cruz DO, 40 mg at 11/10/24 0746 simethicone (MYLICON) chewable tablet 80 mg, 80 mg, Oral, 4x Daily, Betty Dias DO, 80 mg at 11/10/24 1023 [START ON 11/13/2024] sulfamethoxazole-trimethoprim (BACTRIM) 800-160 MG per tablet double-strength 1 tablet, 1 tablet, Oral, Once per day on Monday, Chelsea Cunningham MD tacrolimus (PROGRAF) capsule 5 mg, 5 mg, Oral, 2 times per day, David Cruz DO, 5 mg at 11/10/24 0608 tamsulosin (FLOMAX) 24 hr capsule 0.4 mg, 0.4 mg, Oral, Nightly, David Cruz DO, 0.4 mg at 11/09/24 2108 traZODone (DESYREL) tablet 50 mg, 50 mg, Oral, Nightly, Betty Dias DO, 50 mg at 11/09/24 210 ursodiol (ACTIGALL) capsule 300 mg, 300 mg, Oral, 3 times per day, David Cruz DO, 300 mg at 11/10/24 1023 valGANciclovir (VALCYTE) tablet 900 mg, 900 mg, Oral, 2 times per day, David Cruz DO, 900 mgat 11/10/24 1024 PHYSICAL EXAM: Vital signs: Vitals: 11/09/24 2000 11/10/24 0400 11/10/24 0608 11/10/24 0713 BP: 118/70 125/77 105/62 Pulse: 61 60 61 Resp: 18 17 Temp: 98 ??F (36.7 ??C) 97.4 ??F (36.3 ??C) TempSrc: Oral Oral SpO2: 98% 94% Weight: 141 lb (64 kg) Height: Weight: Admit Weight: 159 lb (72.1 kg) Latest Weight: 141 lb (64 kg) BP 105/62 Pulse 61 Temp 97.4 ??F (36.3 ??C) (Oral) Resp 17 Ht 5' 9 (1.753 m) Wt 141 lb (64 kg) SpO2 94% BMI 20.82 kg/m?? General Appearance: Alert, cooperative, no distress, appears stated age Head: Normocephalic, without obvious abnormality, atraumatic Eyes: PERRL, conjunctiva/corneas clear, EOM's intact, fundi benign, both eyes Ears: Normal TM's and external ear canals, both ears Nose: Nares normal, septum midline, mucosa normal, no drainage or sinus tenderness Throat: Lips, mucosa, and tongue normal; teeth and gums normal Neck: Supple, symmetrical, trachea midline, no adenopathy, thyroid: not enlarged, symmetric, no tenderness/mass/nodules, no carotid bruit or JVD Back: Symmetric, no curvature, ROM normal, no CVA tenderness Lungs: Clear to auscultation bilaterally, respirations unlabored Chest Wall: No tenderness or deformity Heart: Regular rate and rhythm, S1, S2 normal, no murmur, rub or gallop Abdomen: Soft, non-tender, bowel sounds active all four quadrants, no masses, no organomegaly Genitalia: Normal male Rectal: Normal tone, normal prostate, no masses or tenderness; guaiac negative stool Extremities: Extremities normal, atraumatic, no cyanosis or edema Pulses: 2+ and symmetric Skin: Skin color, texture, turgor normal, no rashes or lesions Lymph nodes: Cervical, supraclavicular, and axillary nodes normal Neurologic: Normal Lab Results: CBC: Recent Labs Lab Units 11/07/24 1056 WBC k/uL 3.16* RBC AUTO m/uL 2.48* HEMOGLOBIN g/dL 7.5* HEMATOCRIT % 23.7* MCV fL 95.6 PLATELETS AUTO k/uL 580* CBC with Differential: Recent Labs Lab Units 11/07/24 1056 WBC k/uL 3.16* RBC AUTO m/uL 2.48* HEMOGLOBIN g/dL 7.5* HEMATOCRIT % 23.7* PLATELETS AUTO k/uL 580* MCV fL 95.6 MCH pg 30.2 MCHC g/dL 31.6 [ H/H: Recent Labs Lab Units 11/07/24 1056 HEMOGLOBIN g/dL 7.5* HEMATOCRIT % 23.7* BMP: Recent Labs Lab Units 11/09/24 0605 SODIUM mmol/L 134* POTASSIUM mmol/L 5.0 CHLORIDE mmol/L 99 CO2 mmol/L 25 BUN mg/dL 18 CREATININE mg/dL 1.46* GLUCOSE mg/dL 85 CALCIUM mg/dL 8.6 ANION GAP mmol/L 10 MG/PHOS: Recent Labs Lab Units 11/09/24 0605 MAGNESIUM mg/dL 2.1 PHOSPHORUS mg/dL 4.2 CKMB: Invalid input(s): CKMB;2 PT/INR: PTT: BNP: Troponin: Last 3 Troponin: Invalid input(s): TROPONINI;3 U/A: Recent Labs Lab Units 11/08/24 1823 COLOR UA Yellow CLARITY UA Clear GLUCOSE UR Negative BILIRUBIN URINE Negative KETONES U MG/DL Negative BLOOD U Negative UROBILINOGEN UA Normal NITRITE UA Negative CMP: Recent Labs Lab Units 11/09/24 0605 11/08/24 0521 11/07/24 1056 SODIUM mmol/L 134* < > 136 POTASSIUM mmol/L 5.0 < > 4.8 CHLORIDE mmol/L 99 < > 96* CO2 mmol/L 25 < > 24 BUN mg/dL 18 < > 16 CREATININE mg/dL 1.46* < > 1.50* GLUCOSE mg/dL 85 < > 77 PROTEIN TOTAL g/dL -- -- 5.4* CALCIUM mg/dL 8.6 < > 8.8 ALBUMIN g/dL 3.0* -- 3.0* BILIRUBIN, TOTAL mg/dL -- -- 0.3 ALKALINE PHOSPHATASE U/L -- -- 156* ALT U/L -- -- 12 AST U/L -- -- 18 ANION GAP mmol/L 10 < > 16* < > = values in this interval not displayed. LFT's: Recent Labs Lab Units 11/07/24 1056 PROTEIN TOTAL g/dL 5.4* ALKALINE PHOSPHATASE U/L 156* AST U/L 18 ALT U/L 12 Calcium: Recent Labs Lab Units 11/09/24 0605 CALCIUM mg/dL 8.6 Ionized Calcium: Invalid input(s): IONCA ABG: Invalid input(s): BDEF HgBA1c: Lipid Panel: Invalid input(s): LDLCALCU , CHOLHDLR TSH: Fibrinogen: Glucose Last 3 Days: Imaging: I have reviewed all lmaging and testing from the last 24 hrs CALI IRVING MD 11/10/24 12:28 PM EDT * Suze Jenkins MD - 11/10/2024 11:32 AM EDT Medicine Follow Up Note [facility] Patient identification: Name: Charles Blandon : 1955 Admitted: 10/30/2024 7:01 PM Subjective: Seen resting in bed. ROS: +Acute on chronic back pain +Abdominal distention Objective: BP 105/62 Pulse 61 Temp 97.4 ??F (36.3 ??C) (Oral) Resp 17 Ht 5' 9 (1.753 m) Wt 141 lb (64 kg) SpO2 94% BMI 20.82 kg/m?? Intake/Output last 3 shifts: I/O last 3 completed shifts: In: 180 [P.O.:180] Out: 653 [Drains:3] Intake/Output this shift: No intake/output data recorded. Weight: Weight change: -21 lb 6 oz (-9.696 kg) Physical Exam: General: Awake, alert. In mild distress HEENT: NCAT Lungs: CTA b/l Heart; S1 S2 normal Abdomen: non-distended Extremities: no edema Assessment/Plan: Hx of Liver transplantation CBD stent Bile leak (s/p perihepatic aspiration and drain placement) Continue daptomycin for 4 week course Repeat ERCP in 1 month Continue Bactrim, Prograf, Valcyte Monitor CMV Continue baby aspirin due to thrombocytosis Ascites survey-small to moderate ascites VRE (vancomycin-resistant Enterococci) infection Continue Daptomycin, monitor CK (10) Cytomegalovirus (CMV) viremia Continue Valcyte Follow CMV levels qMon Fluid overload Lasix on hold 2/2 RENATE Trans daily weights RENATE No retention on bladder scans Lasix held Given 500 NS bolus UA is negative renal sono no acute process F/u with nephrology Nausea & vomiting Ileus without SBO Abdominal distention (small ascites) Continue regular diet Continue bowel regimen Zofran PRN KUB-non obstructive, gas filled loops Simethicone 4x daily Chronic bilateral low back pain without sciatica History of T11 and T12 compression fractures Consulted Neurosurgery - not an appropriate surgical candidate Pain control PT/OT Lumbar x-ray-no acute abnormalities Vertigo CT brain 10/07: negative MRI brain 10/24: negative for acute abnormality follow up with Vestibular Neurologist, Dr. Roach Moderate-sized loculated right hydropneumothorax. Medium-sized left pleural effusion RVP (+) parainfluenza 3 S/p left thoracentesis 10/14: 320 cc drained, culture NGTD Stable, currently on room air Anemia due to multiple mechanisms Monitor Severe protein-calorie malnutrition Continue regular diet Nutrition following GERD (gastroesophageal reflux disease) Continue pepcid BID DVT ppx; Heparin BID SUZE JENKINS MD 11/10/24 * Naya Kaplan MD - 11/09/2024 7:11 PM EDT [facility] PM&R Progress Note 11/09/2024 ASSESSMENT: Critical Illness Myopathy Metastatic HCC S/p DCD OLT, 09/09 Biliary stricture of transplanted liver Acute blood loss Anemia, PRBC 09/27 (Crossmatch T and B cell weak positive ), 10/26 Parainfluenza pneumonia infection Fluid overload VRE Biliary stent infection Ascites s/p perihepatic collection aspiration and drain placement, 10/17. 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 Functional Bowel Incontinence Protein Calorie Malnutrition Gait Abnormality Ambulatory Dysfunction ADL Dysfunction Debility Cognitive Impairment Constipation Coordination Deficit Spasticity Skin Wound Neuropathic Pain Chronic Pain Balance Deficits PLAN: IM, ID, Nephro, Pulm, Cardio Consult Psychologist consultation and evaluation, Melatonin, Trazodone; remeron Biweekly immunosuppression labs, viral surveillance titre's weekly and biweekly IDT with liver transplant team ATB Daptomycin IV to complete 11/12 Prophylaxis: Acyclovir, Bactrim, Nystatin swish/swallow completes 09/30 Immunosuppression: prograf bid, cellcept bid, prednisone completed 09/30 Midodrine tid to keep BP normal Bowel Program: Miralax, Colace, Senna, Dulcolax Glycemic Control:Lispro Bladder Retraining and eval for high PVR and IC if >300, Flomax Nutritional Support - Adult Diet Regular; 7 Regular (Regular Texture); 0 Thin (All Liquids) GI prophylaxis: Protonix Fall Prevention Isolation: No active isolations Pain management: Acetaminophen, Oxycodone, Lidocaine, Robaxin DVT prophylaxis: Lovenox 11/05 add butrans 5mcg patch for chronic back pain 11/06 IM getting u/s to asses for ascites 11/07 get KUB 11/08 add linzess bid Rehab Issues: Potential barriers to progress- complex medical issues, significant impairments. Rehab plan- PT/OT for ADLs, transfer, and gait training, ROM , strengthening and balance exercises,assistive device prescription. Rehab nursing for skin care, bowel and bladder care, administration of medication, patient and family education. Case management for care coordination and discharge.Therapy schedule will be 3 hrs/day x 5-6 days/week or 15 hrs/7 days in special situations. Weekly Interdisciplinary Rehab Team Meeting to address barriers to discharge and coordination of care. Subjective: 10 pt ROS negative for - chills, fatigue, fever, malaise, night sweats, sleep disturbance, or THIBODEAUX, CP, SOB, diarrhea. Therapy participation. No major issues reported per staff. Initially using urinal-returned shortly Current Function: 11/09/2024: SM Functional Status PT Data (since 11/06/2024) Value Time User Bed Mobility Level of Assist Modified Independent 11/07/2024 3:58 PM Samuel Kaiser, AURELIANO Bed Mobility Comment Sit to supine with SBA 11/07/2024 9:45 AM Jessica Kinsey PT Transfer to Wheelchair 11/06/2024 2:55 PM Makenzie Emmanuel PT Transfer from Bed 11/06/2024 2:55 PM Makenzie Emmanuel PT Transfer Level of Assist Distant Supervision 11/08/2024 10:42 AM Jessica Kinsey PT Ambulation Level of Assist Distant Supervision 11/08/2024 10:42 AM Jessica Kinsey PT Distance (feet) 180 11/08/2024 10:42 AM Jessica Kinsey PT Gait Analysis 180 ft x3, 47 ft x2 w/c<>stairs with RW and supervision to monitor balance and exertion. Pt tilted partially back in chair to manage pain between bouts. Pt demos instances of mild unsteadiness, appropriate step length/height, mild toe-out bilaterally. 11/08/2024 11:41 AM Jessica Diederich, PT Objective: Physical Exam: VS: BP 112/63 Pulse 71 Temp 97 ??F (36.1 ??C) (Oral) Resp 18 Ht 5' 9 (1.753 m) Wt 162 lb6 oz (73.7 kg) SpO2 96% BMI 23.98 kg/m?? General: NAD; resting in bed comfortably CV: regular Pulm: No audible wheezing or stridor; respirations unlabored Abdomen: soft, non-tender, Normal bowel sounds Extremities: non-tender calves Alert and interactive; answering questions; following commands Wound Management: Wound Management Orders (From admission, onward) Start Ordered 11/01/24 1400 Wound Management: Use Associated Wounds location ([place]); Wound prevention Weekly Comments: Apply foam. Assess under foam with each skin assessment. Question Answer Comment Wound Location Use [facility] location [place] Wound Management Wound prevention 10/31/24 1115 10/31/24 0933 Wound Management: Use Associated Wounds location (ALL WOUN[place]/PREVENTION); Wound care per algorithm Per algorithm Question Answer Comment Wound Location Use Associated W[facility] location [facility] WOUN[place]/PREVENTION Wound Management Wound care per algorithm 10/31/24 0932 Section GG CARE Scores - Current All Therapy Physical Therapy Car Transfer Car Transfer - CARE Score: 3 (11/04/241533) Walk 10 Feet Walk 10 Feet - CARE Score: 4 (11/04/241533) Walk 50 Feet with Two Turns Walk 50 Feet with Two Turns - CARE Score: 4 (11/04/241533) Walk 150 Feet Walk 150 Feet - CARE Score: 4 (11/04/241533) Walking 10 Feet on Uneven Surfaces Walking 10 Feet on Uneven Surfaces - CARE Score: 88 (11/04/241533) 1 Step (Curb) 1 Step (Curb) - CARE Score: 4 (11/04/241533) 4 Steps 4 Steps - CARE Score: 4 (11/04/241533) 12 Steps 12 Steps - CARE Score: 88 (11/04/241533) Picking Up Object Picking Up Object - CARE Score: 88 (11/04/241533) Wheel 50 Feet with Two Turns Wheel 50 Feet with Two Turns - CARE Score: 1 (11/04/241533) Wheel 150 Feet Wheel 150 Feet - CARE Score: 1 (07/21/25 1534) Occupational Therapy Eating Eating - CARE Score: 5 (11/04/241543) Oral Hygiene Oral Hygiene - CARE Score: 5 (11/04/241543) Toileting Hygiene Toileting Hygiene - CARE Score: 2 (11/04/241543) Shower/Bathe Self Shower/Bathe Self - CARE Score: 2 (11/04/241543) Upper Body Dressing Upper Body Dressing - CARE Score: 3 (11/04/241543) Lower Body Dressing Lower Body Dressing - CARE Score: 2 (11/04/241543) Putting On/Taking Off Footwear Putting On/Taking Off Footwear - CARE Score: 3 (11/04/241543) Roll Left and Right Roll Left and Right - CARE Score: 3 (11/04/241543) Sit to Lying Sit to Lying - CARE Score: 4 (11/04/241543) Lying to Sitting on Side of Bed Lying to Sitting on Side of Bed - CARE Score: 4 (11/04/241543) Sit to Stand Sit to Stand - CARE Score: 4 (11/04/241543) Chair/Cbo-yi-Pszii Transfer Chair/Jez-ax-Qqjay Transfer - CARE Score: 4 (11/04/241543) Toilet Transfer Toilet Transfer - CARE Score: 4 (11/04/241543) Speech Therapy Expression of Ideas and Wants Expression of Ideas and Wants: Without difficulty (10/31/24822) Understanding Verbal and Non-Verbal Content Understanding Verbal and Non-Verbal Content: Understands (10/31/24822) BIMS Brief Interview for Mental Status (BIMS) Repetition of Three Words (First Attempt): 3 (10/31/24822) Temporal Orientation: Year: Correct (10/31/24822) Temporal Orientation: Month: Accurate within 5 days (10/31/24822) Temporal Orientation: Day: Correct (10/31/24822) Recall: Sock : Yes, no cue required (10/31/24822) Recall: Blue : Yes, no cue required (10/31/24822) Recall: Bed : Yes, after cueing ( a piece of furniture ) (10/31/24822) BIMS Summary Score: 14 (07/17/25 0823) Memory/Recall Ability Labs: Most recent labs reviewed. CBC with Differential: Recent Labs Lab Units 11/07/24 1056 WBC k/uL 3.16* RBC AUTO m/uL 2.48* HEMOGLOBIN g/dL 7.5* HEMATOCRIT % 23.7* PLATELETS AUTO k/uL 580* MCV fL 95.6 MCH pg 30.2 MCHC g/dL 31.6 [ MG/PHOS: Recent Labs Lab Units 11/08/24 0521 MAGNESIUM mg/dL 2.1 PHOSPHORUS mg/dL 4.4 PT/INR: CMP: Recent Labs Lab Units 11/08/24 0521 11/07/24 1056 SODIUM mmol/L 135* 136 POTASSIUM mmol/L 4.6 4.8 CHLORIDE mmol/L 97* 96* CO2 mmol/L 27 24 BUN mg/dL 17 16 CREATININE mg/dL 1.55* 1.50* GLUCOSE mg/dL 92 77 PROTEIN TOTAL g/dL -- 5.4* CALCIUM mg/dL 9.0 8.8 ALBUMIN g/dL -- 3.0* BILIRUBIN, TOTAL mg/dL -- 0.3 ALKALINE PHOSPHATASE U/L -- 156* ALT U/L -- 12 AST U/L -- 18 ANION GAP mmol/L 11 16* LFT's: Recent Labs Lab Units 11/07/24 1056 PROTEIN TOTAL g/dL 5.4* ALKALINE PHOSPHATASE U/L 156* AST U/L 18 ALT U/L 12 Glucose Last 3 Days: Imaging: US abdomen limited Result Date: 11/06/2024 * * *Final Report* * * DATE OF EXAM: Nov 06 2024 3:45PM [facility] 1064 - US ABDOMEN [facility] / PROCEDURE REASON: ASCITES SURVEY * * * * Physician Interpretation * * * * Clinical information: Ascites Ascites survey was performed. Images were obtained and stored in a permanent archive. Small to moderate volume ascites within the right lower quadrant, left upper quadrant, and left lower quadrant. Ascites contains multiple septations. Partially visualized small right-sided pleural effusion. Impression: Small to moderate volume ascites containing multiple septations Stripper Apprentice: SRINI Transcribe Date/Time: Nov 06 2024 4:32P Dictated by : AMARILIS MACK MD This examination was interpreted and the report reviewed and electronically signed by: AMARILIS MACK MD on Nov 06 2024 4:33PM EST XR lumbar spine 1 vws Result Date: 11/04/2024 * * *Final Report* * * DATE OF EXAM: Nov 04 2024 3:30PM [id number] - XR LUMBAR 1V / PROCEDURE REASON: 11/24 acute on chronic back pain with hx of compression fractures * * * * Physician Interpretation * * * * Information: Back pain, compression fractures Limited AP only view of the lumbar spine was obtained. Study correlated with CT scan dated 10/24/2024. Compression deformities involving T11 and T12, visualization is limited. No definite lumbar compression fractures. Lumbar disc spaces are grossly maintained. Impression: Limited AP only study with suboptimal visualization of the lumbar spine. No definite lumbar compression fracture. T11 and T12 compression fractures better seen on prior CT scan. Stripper Apprentice: PSCPatricia Transcribe Date/Time: Nov 04 2024 4:31P Dictated by: AMARILIS MACK MD This examination was interpreted and the report reviewed and electronically signed by: AMARILIS MACK MD on Nov 04 2024 4:32PM EST XR CHEST 1 VWS Result Date: 11/04/2024 * * *Final Report* * * DATE OF EXAM: Nov 01 2024 2:39PM [id number] - XR CHEST 1V FRONTAL / PROCEDURE REASON: pleural effusion * * * * Physician Interpretation * * * * EXAMINATION:CHEST RADIOGRAPH (PORTABLE SINGLE VIEW AP) EXAM DATE/TIME: 11/01/2024 2:39 PM INDICATIONS: Shortnessof breath. Pleural effusion MQ: XCPR_5 COMPARISON: 10/14/2024 RESULT: Lines, tubes, and devices: Interval placement of a right PICC line, with the distal tip in the lower SVC/upper atrium. Lungs and pleura: Interval decrease in opacification of the right lower lung zone, compatible with decrease inright pleural effusion and right basilar opacities. Small to moderate amount of airspace opacities still persists in the right lower lung zone; atelectasis/scarring versus infiltrates. Small amount of patchy opacities in the left lower lung zone that could be related to mild subsegmental atelectasis. A tiny left pleural effusion cannot be excluded. Prominence of interstitial markings raising the possibility of mild pulmonary vascular congestion. Cardiomediastinal silhouette: Stable cardiomediastinal silhouette. No acute osseous abnormality. IMPRESSION: Interval decrease in the right pleural effusion and right basilar opacities. Possible mild pulmonary vascular congestion. Stripper Apprentice: [facility] Transcribe Date/Time: Nov 04 2024 8:27A Dictated by : CHARIS WHALEN MD This examination was interpreted and the report reviewed and electronically signed by: CHARIS WHALEN MD on Nov 04 2024 8:28AM EST US abdomen limited Result Date: 11/03/2024 * * *Final Report* * * DATE OF EXAM: Nov 03 2024 1:28PM [facility] 1064 - US ABDOMEN LTD / PROCEDURE REASON: evaluate for ascites * * * * Physician Interpretation * * * * EXAMINATION: US ABDOMEN LTD HISTORY: evaluate for ascites TECHNIQUE: Limited evaluation of the abdomen to evaluate for ascites . Images were obtained and stored in a permanent archive. COMPARISON: 10/29/2024 ultrasound RESULT: See Impression. - IMPRESSION: Small to moderate volume of multiloculated ascites with numerous septations is similar to prior study. Stripper Apprentice: [facility] Transcribe Date/Time: Nov 03 2024 2:13P Dictated by : MD YOLANDA This examination was interpreted and the report reviewed and electronically signed by: JIM LUZ MD on Nov 03 2024 2:14PM EST US DOPPLER COMPLETE Result Date: 10/29/2024 * * *Final Report* * * DATE OF EXAM: Oct 29 2024 3:39PM [facility] 1033 - US DOPPLER COMPLETE / PROCEDURE REASON: Liver transplant * * * * Physician Interpretation * * * * EXAMINATION:LIVER VASCULAR ULTRASOUND WITH DOPPLER IMAGING CLINICAL HISTORY: 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 Images were obtained and stored in a permanent archive. MQ: USLV_1 COMPARISON:CT 10/24/2024, ultrasound 10/19/2024. RESULT: Sonographic Findings: Pancreas: Normal sonographic appearance. Portions obscured: tail Liver: Echotexture: Normal, homogeneous. Echogenicity: Normal Surface contour: Smooth Lesions: None. Biliary: No intrahepatic biliary duct dilation. Stable pneumobilia. CBD: 0.8 cm at the hilum. Gallbladder: Prior cholecystectomy. Gallbladder fossa partially obscured with drain in place. Right Kidney: No hydronephrosis. Spleen: Craniocaudal length 9.4 cm, normal. There are no splenic lesions. Other: Moderate volume loculated ascites, increased from prior ultrasound 10/19/2024 HEPATIC VASCULATURE: PORTAL SYSTEM: -Splenic Vein: Patent with antegrade flow (towards the liver). -Main PV: Patent with phasic antegrade flow (towards liver). 44-58 cm/sec. Previously 38-53 cm/sec. -Right anterior PV: Patent with phasic antegrade flow (towards liver). 25.5 cm/sec. Pre viously 30 cm/sec -Right posterior PV: Patent with phasic antegrade flow (towards liver). 30 cm/sec. Previously 32 cm/sec -Left PV: Patent with phasic antegrade flow (towards liver). 19 cm/sec. Previously 26 cm/sec HEPATIC ARTERIES: - Main THIBODEAUX: Normal waveform PSV: 51-57 cm/sec. RI: 0.74-0.75. Previo usly 70-84 cm/sec. RI: 0.76-0.80 - Right anterior THIBODEAUX: Normal waveform PSV: 59 cm/sec. RI: 0.68. Previously 66 cm/sec. RI: 0.72 - Right posterior THIBODEAUX: Normal waveform PSV: 81 cm/sec. RI: 0.74. Previously 66 cm/sec. RI: 0.77 - Left THIBODEAUX: Normal waveform PSV: 60 cm/sec. RI: 0.70. Previously 73 cm/sec. RI: 0.77 HEPATIC VEINS: -Left: Patent with triphasic waveform. -Middle: Patent with triphasic waveform. -Right: Patent with triphasic waveform. IVC: Patent with normal, phasic wave form. IMPRESSION: Patent hepatic vasculature with appropriately directed flow. Mildly increased multiloculated ascites. Stripper Apprentice: [facility] Transcribe Date/Time: Oct 29 2024 3:46P Dictated by : AMRIO YU MD This examination was interpreted and the report reviewed and electronically signed by: AMARILIS ADAMSON MD on Oct 29 2024 4:11PM [facility] ABD LIVER VASCULAR TRANSPLANT () Result Date: 10/29/2024 * * *Final Report* * * DATE OF EXAM: Oct 29 2024 3:00PM [facility] 0685 - ABD LIVER VASCULAR TRANSPLANT/ PROCEDURE REASON: Liver transplant * * * * Physician Interpretation * * * *EXAMINATION: LIVER VASCULAR ULTRASOUND WITH DOPPLER IMAGING CLINICAL HISTORY: Orthotopic liver transplant 09/09/2024 TECHNIQUE: Sonography of the liver with color and spectral Doppler imaging of thehepatic vasculature was performed. Images were obtained and stored in a permanent archive. MQ: USLV_1 COMPARISON: CT 10/24/2024, ultrasound 10/19/2024. RESULT: Sonographic Findings: Pancreas: Normal sonographic appearance. Portions obscured: tail Liver: Echotexture: Normal, homogeneous. Echogenicity: Normal Surface contour: Smooth Lesions: None. Biliary: No intrahepatic biliary duct dilation. Stable pneumobilia. CBD: 0.8 cm at the hilum. Gallbladder: Prior cholecystectomy. Gallbladder fossa partially obscured with drain in place. Right Kidney: No hydronephrosis. Spleen: Craniocaudal length 9.4 cm, normal. There are no splenic lesions. Other: Moderate volume loculated ascites, increased from prior ultrasound 10/19/2024 HEPATIC VASCULATURE: PORTAL SYSTEM: -Splenic Vein: Patent with antegrade flow (towards the liver). -Main PV: Patent with phasic antegrade flow (towards liver). 44-58 cm/sec. Previously 38-53 cm/sec. -Right anterior PV: Patent with phasic antegrade flow (towards liver). 25.5 cm/sec. Previously 30 cm/sec -Right posterior PV: Patent with phasic antegrade flow (towards liver). 30 cm/sec. Previously 32 cm/sec -Left PV: Patent with phasic antegrade flow (towards liver). 19 cm/sec. Previously 26 cm/sec HEPATIC ARTERIES: - Main THIBODEAUX: Normal waveform PSV: 51-57 cm/sec. RI: 0.74-0.75. Previously 70-84 cm/sec. RI: 0.76-0.80 - Right anterior THIBODEAUX: Normal waveform PSV: 59 cm/sec. RI: 0.68. Previously 66 cm/sec. RI: 0.72 - Right posterior THIBODEAUX: Normal waveform PSV: 81 cm/sec. RI: 0.74. Previously 66 cm/sec. RI: 0.77 - Left THIBODEAUX: Normal waveform PSV: 60 cm/sec. RI: 0.70. Previously 73 cm/sec. RI: 0.77 HEPATIC VEINS: -Left: Patent with triphasic waveform. -Middle: Patent with tri phasic waveform. -Right: Patent with triphasic waveform. IVC: Patent with normal, phasic wave form. IMPRESSION: Patent hepatic vasculature with appropriately directed flow. Mildly increased multiloculated ascites. Stripper Apprentice: [facility] Transcribe Date/Time: Oct 29 2024 3:46P Dictated by : MARIO YU MD This examination was interpreted and the report reviewed and electronically signed by: AMARILIS ADAMSON MD on Oct 29 2024 4:11PM NAYA LOFTON MD * Suze Jenkins MD - 11/09/2024 1:25 PM EDT Medicine Follow Up Note [facility] Patient identification: Name: Charles Blandon : 1955 Admitted: 10/30/2024 7:01 PM Subjective: Seen resting in bed. ROS: +Acute on chronic back pain +Abdominal distention Objective: BP 111/60 Pulse 71 Temp 97 ??F (36.1 ??C) (Oral) Resp 18 Ht 5' 9 (1.753 m) Wt 162 lb 6 oz (73.7 kg) SpO2 96% BMI 23.98 kg/m?? Intake/Output last 3 shifts: I/O last 3 completed shifts: In: 1060 [P.O.:940; I.V.:20; IV Piggyback:100] Out: 1250 Intake/Output this shift: No intake/output data recorded. Weight: Weight change: -7 lb 0.4 oz (-3.187 kg) Physical Exam: General: Awake, alert. In mild distress HEENT: NCAT Lungs: CTA b/l Heart; S1 S2 normal Abdomen: non-distended Extremities: no edema Assessment/Plan: Hx of Liver transplantation CBD stent Bile leak (s/p perihepatic aspiration and drain placement) Continue daptomycin for 4 week course Repeat ERCP in 1 month Continue Bactrim, Prograf, Valcyte Monitor CMV Continue baby aspirin due to thrombocytosis Ascites survey-small to moderate ascites VRE (vancomycin-resistant Enterococci) infection Continue Daptomycin, monitor CK (10) Cytomegalovirus (CMV) viremia Continue Valcyte Follow CMV levels qMon Fluid overload Lasix on hold 2/2 RENATE Trans daily weights RENATE No retention on bladder scans Lasix held Given 500 NS bolus UA is negative renal sono no acute process F/u with nephrology Nausea & vomiting Ileus without SBO Abdominal distention (small ascites) Continue regular diet Continue bowel regimen Zofran PRN KUB-non obstructive, gas filled loops Simethicone 4x daily Chronic bilateral low back pain without sciatica History of T11 and T12 compression fractures Consulted Neurosurgery - not an appropriate surgical candidate Pain control PT/OT Lumbar x-ray-no acute abnormalities Vertigo CT brain 10/07: negative MRI brain 10/24: negative for acute abnormality follow up with Vestibular Neurologist, Dr. Roach Moderate-sized loculated right hydropneumothorax. Medium-sized left pleural effusion RVP (+) parainfluenza 3 S/p left thoracentesis 10/14: 320 cc drained, culture NGTD Stable, currently on room air Anemia due to multiple mechanisms Monitor Severe protein-calorie malnutrition Continue regular diet Nutrition following GERD (gastroesophageal reflux disease) Continue pepcid BID DVT ppx; Heparin BID SUZE JENKINS MD 11/09/24 * Chelsea Cunningham MD - 11/09/2024 1:13 PM EDT Nephrology Progress Note Subjective: Interval History: Charles Blandon events overnight were reviewed Patient medications: Reviewed, see medication history. Objective: Vital signs in last 24 hours: Temp: [97 ??F (36.1 ??C)-97.1 ??F (36.2 ??C)] 97 ??F (36.1 ??C) Pulse: [62-71] 71 Resp: [18] 18 BP: (101-126)/(60-73) 111/60 Intake/Output last 3 shifts: I/O last 3 completed shifts: In: 1060 [P.O.:940; I.V.:20; IV Piggyback:100] Out: 1250 Intake/Output this shift: No intake/output data recorded. Weight: Wt Readings from Last 3 Encounters: 11/09/24 162 lb 6 oz (73.7 kg) 10/07/24 164 lb 4.8 oz (74.5 kg) Physical Exam: Chest: clear to auscultation, no added sounds Heart: RRR, normal S1, S2 Abdomen: Soft lax, no HSM, +BS, no tenderness. LL: no edema, distal pulses intact. CONTINUOUS IMPROVEMENT CONSULTANT: Conscious, alert and oriented, no focal motor or sensory deficit. Labs: Most recent labs reviewed. CBC: Recent Labs Lab Units 11/07/24 1056 WBC k/uL 3.16* RBC AUTO m/uL 2.48* HEMOGLOBIN g/dL 7.5* HEMATOCRIT % 23.7* MCV fL 95.6 PLATELETS AUTO k/uL 580* BMP: Recent Labs Lab Units 11/08/24 0521 SODIUM mmol/L 135* POTASSIUM mmol/L 4.6 CHLORIDE mmol/L 97* CO2 mmol/L 27 BUN mg/dL 17 CREATININE mg/dL 1.55* GLUCOSE mg/dL 92 CALCIUM mg/dL 9.0 ANION GAP mmol/L 11 Additional comments: None Assessment/ Plan: Charles Blandon is a 69 year old male with a past medical history CKD 3 baseline creatinine 1.0-1.1,eGFR 60's-70's, HHT, Tipton's esophagus, and ETOH cirrhosis complicated by portal HTN, ascites, HE, large EV, and recently diagnosed HCC. He was admitted on to [facility] on 08/23 with altered mental status and hyponatremia. He was subsequently listed for liver transplant on 09/04/24. Now s/p DCD-OLT on 09/09/24. Patient was treated for RENATE Cr >2.8, resolved 09/16. Status improved and discharged to [facility] on 09/29. Patient returned to [facility] for admission on 10/07 w increased Shortness of Breath anddiarrhea. Pulmonary consulted and did not recommend thoracentesis but diuresis. Zosyn started for PNA coverage. RVP (+) parainfluenza and supportive care given. Required ERCP 10/15. Stay was complicated by Bile leak, image guided abdominal drain placement into collection with posituve cultures for E.Faecium. Started on IV dapotmycin, ordered until 11/12/24. Developed left pleural effusion requiringdiuresis and thoracentesis on 10/14 as well as gastric gaseous distension and scattered gas filled nondilated small bowel and colon requiring NG tube placement. ECHO on 10/17 showed an EF of 55% with normal LV function. Stay was further complicated by severe back pain, MRI obtained per neurology. 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 Pt discharged to [facility] on 10/30. RENATE secondary to prerenal azotemia in setting of hypotension (resolved), now with RENATE on 11/07 secondary to prerenal azotemia in setting of hypotension and possible drug mediated in setting of bactrimuse on, CKD stage 3 Baseline Cr 0.8-0.9 Cr up to 1.5 on 11/07 and patient was given albumin infusions in setting of positive orthostatic VS. Cr at plateau levels, IM team ordered 0.5 L NS November 08 We will further trend kidney function HTN Currently off antihypertensives With hypotension of dysautonomia on 11/06 Orthostatic VS with positive results, drop in BP noted while sitting and standing. Good responses to x 1 dose of albumin on 11/06 and scheduled midodrine. BP soft and patient was given albumin infusions BP continues to be soft today Continue Midodrine 10 mg TID Currently getting IV hydration for half a liter avoid excessive IV hydration to avoid fluid overload Diuretics on hold, Continue to hold Continue to follow the trend of BP HFpEF Fluid overload and anasarca Chest x-ray with components of edema Ultrasound abdomen showed moderate ascites Last echo 10/17 with EF 55% Required paracentesis at different occasions last October 30 Hold lasix 40 mg up to twice a day, in presence of RENATE Previously completed Metolazone Keep close eye on respiratory and fluid volume status off diuretics Euvolemic on exam, good urine output noted Monitor urine output and daily weight Anemia Hgb stable, on MARGO therapy will continue to trend Liver Transplant September 04, 2024 On bactrim and tacrolimus and valcyte Will continue to follow the trend of kidney function Biliary stent infection On daptomycin until 11/13 Hypomagnesemia Stable, Continue scheduled PO mag oxide 800 mg TID will continue to follow the trend. CHELSEA CUNNINGHAM MD Time spent on counseling/coordination of care: 45 Minutes Total time spent with patient: 15 Minutes * Aidan Brown MD - 11/08/2024 4:30 PM EDT Pulmonary / Critical Care Progress Note Subjective: No new complaints, lasix was held due to Cr up Breathing is the same , still reports QUESADA no hypoxia Objective: Vital signs for last 24 hours: Temp: [97 ??F (36.1 ??C)-97.1 ??F (36.2 ??C)] 97 ??F (36.1 ??C) Pulse: [62-65] 62 Resp: [18] 18 BP: (101-126)/(61-73) 116/66 Intake/Output last 3 shifts: I/O last 3 completed shifts: In: 1060 [P.O.:940; I.V.:20; IV Piggyback:100] Out: 1250 Intake/Output this shift: No intake/output data recorded. Weight: Weight change: -7 lb 0.4 oz (-3.187 kg) Physical Exam: General awake alert following command HEENT pupils equal and clear sclera clear oropharynx Neck supple Cardiovascular regular rhythm S1-S2 Lungs clear to auscultation no wheezing Abdomen soft nontender Extremity no edema cyanosis or clubbing Neurologically nonfocal cranial nerves intact grossly Imaging: I have reviewed all lmaging and testing from the last 24 hrs Lab Review: CBC: Recent Labs Lab Units 11/07/24 1056 WBC k/uL 3.16* RBC AUTO m/uL 2.48* HEMOGLOBIN g/dL 7.5* HEMATOCRIT % 23.7* MCV fL 95.6 PLATELETS AUTO k/uL 580* BMP: Recent Labs Lab Units 11/08/24 0521 SODIUM mmol/L 135* POTASSIUM mmol/L 4.6 CHLORIDE mmol/L 97* CO2 mmol/L 27 BUN mg/dL 17 CREATININE mg/dL 1.55* GLUCOSE mg/dL 92 CALCIUM mg/dL 9.0 ANION GAP mmol/L 11 PT/INR: BNP: Troponin: U/A: Recent Labs Lab Units 11/08/24 1823 COLOR UA Yellow CLARITY UA Clear GLUCOSE UR Negative BILIRUBIN URINE Negative KETONES U MG/DL Negative BLOOD U Negative UROBILINOGEN UA Normal NITRITE UA Negative LFT's: Recent Labs Lab Units 11/07/24 1056 PROTEIN TOTAL g/dL 5.4* Ionized Calcium: Invalid input(s): IONCA ABG: Invalid input(s): BDEF Current Facility-Administered Medications Medication Dose Route Frequency Provider Last Rate Last Admin acetaminophen (TYLENOL) 160 MG/5ML solution 500 mg 500 mg Oral Q6H PRN David Cruz, DO 500 mg at 11/08/24 1037 alum & mag hydroxide-simeth enteral suspension 15 mL 15 mL Oral Q4H PRN David Cruz, DO 15mL at 11/02/24 0520 aspirin EC tablet 81 mg 81 mg Oral Once a day David Cruz DO 81 mg at 11/08/24 0804 bisacodyl (DULCOLAX) suppository 10 mg 10 mg Rectal Daily PRN David Cruz DO Buprenorphine (BUTRANS) patch 5 mcg 5 mcg Transdermal Q7 Days David Cruz DO 5 mcg at 11/05/24 1322 And Check Patch Placement Transdermal BID David Cruz DO Check Patch Placement at 11/09/24 0726 DAPTOmycin (CUBICIN) 700 mg in sodium chloride 0.9 % 114 mL IVPB 700 mg Intravenous Q24H David Cruz, DO 700 mg at 11/08/24 1344 epoetin omar (PROCRIT) injection 15,000 Units 15,000 Units Subcutaneous Once per day on Monday Chelsea Cunningham MD 15,000 Units at 11/08/24 0803 famotidine (PEPCID) tablet 20 mg 20 mg Oral 2 times per day David Cruz DO 20 mg at 11/08/24 2158 heparin (porcine) injection 5,000 Units 5,000 Units Subcutaneous Q12H [facility] David Cruz DO 5,000 Units at 11/08/24 2158 linaclotide (LINZESS) capsule 145 mcg 145 mcg Oral 2 times per day David Cruz DO 145 mcg at 11/08/24 215 magnesium hydroxide (MILK OF MAGNESIA) 400 MG/5ML suspension 30 mL 30 mL Oral Daily PRN David Cruz DO magnesium oxide tablet 800 mg 800 mg Oral 3 times per day Suze Jenkins MD 800 mg at 11/08/24 2157 melatonin tablet 3 mg 3 mg Oral Nightly Betty Serena Dias, DO 3 mg at 11/08/24 215 methocarbamol (ROBAXIN) tablet 750 mg 750 mg Oral TID PRN David Cruz DO 750 mg at 11/08/24 08 midodrine (PROAMATINE) tablet 10 mg 10 mg Oral 3 times per day Barry Palmer APRN 10 mg at 11/09/24 05 mirtazapine (REMERON) tablet 7.5 mg 7.5 mg Oral Nightly David Cruz, DO 7.5 mg at 11/08/242156 multivitamin w/ minerals (THERA M PLUS) tablet/capsule 1 tablet 1 tablet Oral Once a day David Cruz DO 1 tablet at 11/08/24 08 ondansetron ODT (ZOFRAN-ODT) disintegrating tablet 4 mg 4 mg Oral Q6H PRN Suze Jenkins MD 4 mg at11/04/24 113 oxyCODONE (ROXICODONE) immediate release tablet 10 mg 10 mg Oral Q6H PRN Suze Jenkins MD 10 mg at11/08/24 08 pantoprazole (PROTONIX) EC/DR tablet 40 mg 40 mg Oral BID AC David Cruz, DO 40 mg at simethicone (MYLICON) chewable tablet 80 mg 80 mg Oral 4x Daily Betty Dias, DO 80 mg at 11/08/242157 [START ON 11/13/2024] sulfamethoxazole-trimethoprim (BACTRIM) 800-160 MG per tablet double-strength 1 tablet 1 tablet Oral Once per day on Monday Chelsea Cunningham MD tacrolimus (PROGRAF) capsule 5 mg 5 mg Oral 2 times per day David Cruz DO 5 mg at 11/09/24536 tamsulosin (FLOMAX) 24 hr capsule 0.4 mg 0.4 mg Oral Nightly David Cruz, DO 0.4 mg at 11/08/242157 traZODone (DESYREL) tablet 50 mg 50 mg Oral Nightly Betty Dias, DO 50 mg at 11/08/242157 ursodiol (ACTIGALL) capsule 300 mg 300 mg Oral 3 times per day David Cruz DO 300 mg at 11/08/242157 valGANciclovir (VALCYTE) tablet 900 mg 900 mg Oral 2 times per day David Cruz, DO 900 mg at 11/08/24 8183 Assessment / Plan Active Problems: Critical illness myopathy S/p liver transplant Hepatocellular carcinoma BL pleural effusions and right hydropneumothorax post pig tail right side and thoracentesis . Diuretics were held . Most recent CXR effusions are small Biliary infection on Daptomycin till 11/12, no evidence of side effects. Continue to monitor Ileus improved Multiloculated ascites AIDAN BROWN MD * Chelsea Cunningham MD - 11/08/2024 3:38 PM EDT Nephrology Progress Note Subjective: Interval History: Charles Blandon none Patient medications: Reviewed, see medication history. Objective: Vital signs in last 24 hours: Temp: [97.9 ??F (36.6 ??C)-98.3 ??F (36.8 ??C)] 97.9 ??F (36.6 ??C) Pulse: [69-84] 84 Resp: [17-19] 17 BP: (98-123)/(64-68) 102/64 Intake/Output last 3 shifts: I/O last 3 completed shifts: In: 1220 [P.O.:1100; I.V.:20; IV Piggyback:100] Out: 1385 [Drains:15] Intake/Output this shift: I/O this shift: In: 160 [P.O.:160] Out: - Weight: Wt Readings from Last 3 Encounters: 11/08/24 169 lb 6.4 oz (76.8 kg) 10/07/24 164 lb 4.8 oz (74.5 kg) Physical Exam: General appearance: alert, appears stated age, and cooperative Lungs: clear to auscultation bilaterally Heart: regular rate and rhythm, S1, S2 normal, no murmur, click, rub or gallop Abdomen: soft, non-tender; bowel sounds normal; no masses, no organomegaly Extremities: extremities normal, atraumatic, no cyanosis or edema Pulses: 2+ and symmetric Skin: Skin color, texture, turgor normal. No rashes or lesions Neurologic: Grossly normal Labs: CBC: Recent Labs Lab Units 11/07/24 1056 WBC k/uL 3.16* RBC AUTO m/uL 2.48* HEMOGLOBIN g/dL 7.5* HEMATOCRIT % 23.7* MCV fL 95.6 PLATELETS AUTO k/uL 580* BMP: Recent Labs Lab Units 11/08/24 0521 SODIUM mmol/L 135* POTASSIUM mmol/L 4.6 CHLORIDE mmol/L 97* CO2 mmol/L 27 BUN mg/dL 17 CREATININE mg/dL 1.55* GLUCOSE mg/dL 92 CALCIUM mg/dL 9.0 ANION GAP mmol/L 11 MG/PHOS: Recent Labs Lab Units 11/08/24 0521 MAGNESIUM mg/dL 2.1 PHOSPHORUS mg/dL 4.4 Assessment/ Plan: Active Problems: Critical illness myopathy LOS: 9 days He reports his symptoms are improving with treatment. Charles Blandon is a 69 year old male with a past medical history CKD 3 baseline creatinine 1.0-1.1,eGFR 60's-70's, HHT, Tipton's esophagus, and ETOH cirrhosis complicated by portal HTN, ascites, HE, large EV, and recently diagnosed HCC. He was admitted on to [facility] on 08/23 with altered mental status and hyponatremia. He was subsequently listed for liver transplant on 09/04/24. Now s/p DCD-OLT on 09/09/24. Patient was treated for RENATE Cr >2.8, resolved 09/16. Status improved and discharged to [facility] on 09/29. Patient returned to [facility] for admission on 10/07 w increased Shortness of Breath anddiarrhea. Pulmonary consulted and did not recommend thoracentesis but diuresis. Zosyn started for PNA coverage. RVP (+) parainfluenza and supportive care given. Required ERCP 10/15. Stay was complicated by Bile leak, image guided abdominal drain placement into collection with posituve cultures for E.Faecium. Started on IV dapotmycin, ordered until 11/12/24. Developed left pleural effusion requiringdiuresis and thoracentesis on 10/14 as well as gastric gaseous distension and scattered gas filled nondilated small bowel and colon requiring NG tube placement. ECHO on 10/17 showed an EF of 55% with normal LV function. Stay was further complicated by severe back pain, MRI obtained per neurology. 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 Pt discharged to [facility] on 10/30. RENATE secondary to prerenal azotemia in setting of hypotension (resolved), now with RENATE on 11/07 secondary to prerenal azotemia in setting of hypotension and possible drug mediated in setting of bactrimuse on, CKD stage 3 Baseline Cr 0.8-0.9 Cr up to 1.5 on 11/07 and patient was given albumin infusions in setting of positive orthostatic VS. Cr at plateau levels, IM team ordered 0.5 L NS today Will recheck lab work tomorrow. HTN Currently off antihypertensives With hypotension of dysautonomia on 11/06 Orthostatic VS with positive results, drop in BP noted while sitting and standing. Good responses to x 1 dose of albumin on 11/06 and scheduled midodrine. BP soft and patient was given albumin infusions BP continues to be soft today Continue Midodrine 10 mg TID Currently getting IV hydration for half a liter avoid excessive IV hydration to avoid fluid overload Diuretics on hold, Continue to hold Will check orthostatic VS after infusion is complete. Continue to follow the trend of BP HFpEF Fluid overload and anasarca Chest x-ray with components of edema Ultrasound abdomen showed moderate ascites Last echo 10/17 with EF 55% Required paracentesis at different occasions last October 30 Hold lasix 40 mg up to twice a day, in presence of RENATE Previously completed Metolazone Keep close eye on respiratory and fluid volume status off diuretics Euvolemic on exam, good urine output noted Monitor urine output and daily weight Anemia Hgb stable, on MARGO therapy will continue to trend Liver Transplant September 04, 2024 On bactrim and tacrolimus and valcyte Will continue to follow the trend of kidney function Biliary stent infection On daptomycin until 11/13 Hypomagnesemia Stable, Continue scheduled PO mag oxide 800 mg TID will continue to follow the trend. Case discussed with Dr. Cunningham Thank you for your consult We will follow along with you SIGNATURE: BARRY PALMER APRN PATIENT NAME: Charles Blandon DATE: November 08, 2024 TIME: 3:38 PM EDT PAGER: * Betty Dias, DO - 11/08/2024 2:20 PM EDT Medicine Follow Up Note [facility] Patient identification: Name: Charles Blandon : 1955 Admitted: 10/30/2024 7:01 PM Subjective: Seen resting in bed. C/o fatigue, somnolence Abdomen appears less distended Also states he has a hard initiating a stream and emptying his bladder ROS: +Acute on chronic back pain +Abdominal distention Objective: BP 102/64 Pulse 84 Temp 97.9 ??F (36.6 ??C) (Oral) Resp 17 Ht 5' 9 (1.753 m) Wt 169 lb 6.4 oz (76.8 kg) SpO2 93% BMI 25.02 kg/m?? Intake/Output last 3 shifts: I/O last 3 completed shifts: In: 1220 [P.O.:1100; I.V.:20; IV Piggyback:100] Out: 1385 [Drains:15] Intake/Output this shift: I/O this shift: In: 160 [P.O.:160] Out: - Weight: Weight change: 1 lb 6.4 oz (0.635 kg) Physical Exam: General: Awake, alert. In mild distress HEENT: NCAT Lungs: CTA b/l Heart; S1 S2 normal Abdomen: non-distended Extremities: no edema Assessment/Plan: Hx of Liver transplantation CBD stent Bile leak (s/p perihepatic aspiration and drain placement) Continue daptomycin for 4 week course Repeat ERCP in 1 month Continue Bactrim, Prograf, Valcyte Monitor CMV Continue baby aspirin due to thrombocytosis Ascites survey-small to moderate ascites VRE (vancomycin-resistant Enterococci) infection Continue Daptomycin, monitor CK (10) Cytomegalovirus (CMV) viremia Continue Valcyte Follow CMV levels qMon Fluid overload Lasix on hold 2/2 RENATE Trans daily weights RENATE Cr 0.8 (yesterday)>> 1.5 (today) No retention on bladder scans Lasix held Given 500 NS bolus F/u UA F/u renal sono F/u with nephrology Nausea & vomiting Ileus without SBO Abdominal distention (small ascites) Continue regular diet Continue bowel regimen Zofran PRN KUB-non obstructive, gas filled loops Simethicone 4x daily Chronic bilateral low back pain without sciatica History of T11 and T12 compression fractures Consulted Neurosurgery - not an appropriate surgical candidate Pain control PT/OT Lumbar x-ray-no acute abnormalities Vertigo CT brain 10/07: negative MRI brain 10/24: negative for acute abnormality follow up with Vestibular Neurologist, Dr. Roach Moderate-sized loculated right hydropneumothorax. Medium-sized left pleural effusion RVP (+) parainfluenza 3 S/p left thoracentesis 10/14: 320 cc drained, culture NGTD Stable, currently on room air Anemia due to multiple mechanisms Monitor Severe protein-calorie malnutrition Continue regular diet Nutrition following GERD (gastroesophageal reflux disease) Continue pepcid BID DVT ppx; Heparin BID Betty Dias D.O. 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 Functional Bowel Incontinence Protein Calorie Malnutrition Gait Abnormality Ambulatory Dysfunction ADL Dysfunction Debility Cognitive Impairment Constipation Coordination Deficit Spasticity Skin Wound Neuropathic Pain Chronic Pain Balance Deficits PLAN: IM, ID, Nephro, Pulm, Cardio Consult Psychologist consultation and evaluation, Melatonin, Trazodone; remeron Biweekly immunosuppression labs, viral surveillance titre's weekly and biweekly IDT with liver transplant team ATB Daptomycin IV to complete 11/12 Prophylaxis: Acyclovir, Bactrim, Nystatin swish/swallow completes 09/30 Immunosuppression: prograf bid, cellcept bid, prednisone completed 09/30 Midodrine tid to keep BP normal Bowel Program: Miralax, Colace, Senna, Dulcolax Glycemic Control:Lispro Bladder Retraining and eval for high PVR and IC if >300, Flomax Nutritional Support - Adult Diet Regular; 7 Regular (Regular Texture); 0 Thin (All Liquids) GI prophylaxis: Protonix Fall Prevention Isolation: No active isolations Pain management: Acetaminophen, Oxycodone, Lidocaine, Robaxin DVT prophylaxis: Lovenox 11/05 add butrans 5mcg patch for chronic back pain 11/06 IM getting u/s to asses for ascites 11/07 get KUB 11/08 add linzess bid Rehab Issues: Potential barriers to progress- complex medical issues, significant impairments. Rehab plan- PT/OT for ADLs, transfer, and gait training, ROM , strengthening and balance exercises,assistive device prescription. Rehab nursing for skin care, bowel and bladder care, administration of medication, patient and family education. Case management for care coordination and discharge.Therapy schedule will be 3 hrs/day x 5-6 days/week or 15 hrs/7 days in special situations. Weekly Interdisciplinary Rehab Team Meeting to address barriers to discharge and coordination of care. Subjective: 10 pt ROS negative for - chills, fatigue, fever, malaise, night sweats, sleep disturbance, or THIBODEAUX, CP, SOB, diarrhea. IDT conference with liver transplant team, CM, RN and therapy department discussing progress, discussed significant diagnostics results and confirming dispo planning. Current Function: 11/08/2024: Functional Status PT Data (since 11/05/2024) Value Time User Bed Mobility Level of Assist Modified Independent 11/07/2024 3:58 PM Samuel Kaiser, OT Bed Mobility Comment Sit to supine with SBA 11/07/2024 9:45 AM Jessica Diederich, PT Transfer to Wheelchair 11/06/2024 2:55 PM Makenzie Emmanuel, PT Transfer from Bed 11/06/2024 2:55 PM Makenzie Emmanuel, PT Transfer Level of Assist Distant Supervision 11/08/2024 10:42 AM Jessica Kinsey, PT Ambulation Level of Assist Distant Supervision 11/08/2024 10:42 AM Jessica Kinsey, PT Distance (feet) 180 11/08/2024 10:42 AM Jessica Kinsey, PT Gait Analysis 180 ft x3, 47 ft x2 w/c<>stairs with RW and supervision to monitor balance and exertion. Pt tilted partially back in chair to manage pain between bouts. Pt demos instances of mild unsteadiness, appropriate step length/height, mild toe-out bilaterally. 11/08/2024 11:41 AM Jessica Kinsey, PT Objective: Physical Exam: VS: BP 102/64 Pulse 84 Temp 97.9 ??F (36.6 ??C) (Oral) Resp 17 Ht 5' 9 (1.753 m) Wt 169 lb 6.4 oz (76.8 kg) SpO2 93% BMI 25.02 kg/m?? General: NAD CV: No c/c/e Pulm: No audible wheezing or stridor Abdomen: soft, non-tender, No g/r/r Extremities: Full ROM in all limbs, Tone normal in all limbs Wound Management: Wound Management Orders (From admission, onward) Start Ordered 11/01/24 1400 Wound Management: Use Associated Wounds location ([place]); Wound prevention Weekly Comments: Apply foam. Assess under foam with each skin assessment. Question Answer Comment Wound Location Use Associated Wounds location [place] Wound Management Wound prevention 10/31/24 1115 10/31/24 0933 Wound Management: Use Associated Wounds location (ALL WOUNDS/PREVENTION); Wound care per algorithm Per algorithm Question Answer Comment Wound Location Use Associated Wounds location ALL WOUNDS/PREVENTION Wound Management Wound care per algorithm 10/31/24 0932 Section GG CARE Scores - Current All Therapy Physical Therapy Car Transfer Car Transfer - CARE Score: 3 (11/04/24 1534) Walk 10 Feet Walk 10 Feet - CARE Score: 4 (11/04/24 1534) Walk 50 Feet with Two Turns Walk 50 Feet with Two Turns - CARE Score: 4 (11/04/241533) Walk 150 Feet Walk 150 Feet - CARE Score: 4 (11/04/241533) Walking 10 Feet on Uneven Surfaces Walking 10 Feet on Uneven Surfaces - CARE Score: 88 (11/04/241533) 1 Step (Curb) 1 Step (Curb) - CARE Score: 4 (11/04/241533) 4 Steps 4 Steps - CARE Score: 4 (11/04/241533) 12 Steps 12 Steps - CARE Score: 88 (11/04/241533) Picking Up Object Picking Up Object - CARE Score: 88 (11/04/241533) Wheel 50 Feet with Two Turns Wheel 50 Feet with Two Turns - CARE Score: 1 (11/04/241533) Wheel 150 Feet Wheel 150 Feet - CARE Score: 1 (11/04/241533) Occupational Therapy Eating Eating - CARE Score: 5 (11/04/241543) Oral Hygiene Oral Hygiene - CARE Score: 5 (11/04/241543) Toileting Hygiene Toileting Hygiene - CARE Score: 2 (11/04/241543) Shower/Bathe Self Shower/Bathe Self - CARE Score: 2 (11/04/241543) Upper Body Dressing Upper Body Dressing - CARE Score: 3 (11/04/241543) Lower Body Dressing Lower Body Dressing - CARE Score: 2 (11/04/241543) Putting On/Taking Off Footwear Putting On/Taking Off Footwear - CARE Score: 3 (11/04/241543) Roll Left and Right Roll Left and Right - CARE Score: 3 (11/04/241543) Sit to Lying Sit to Lying - CARE Score: 4 (11/04/241543) Lying to Sitting on Side of Bed Lying to Sitting on Side of Bed - CARE Score: 4 (11/04/241543) Sit to Stand Sit to Stand - CARE Score: 4 (11/04/241543) Chair/Tqy-qg-Mfggd Transfer Chair/Bul-hp-Ysvkq Transfer - CARE Score: 4 (11/04/241543) Toilet Transfer Toilet Transfer - CARE Score: 4 (11/04/241543) Speech Therapy Expression of Ideas and Wants Expression of Ideas and Wants: Without difficulty (10/31/24822) Understanding Verbal and Non-Verbal Content Understanding Verbal and Non-Verbal Content: Understands (10/31/24822) BIMS Brief Interview for Mental Status (BIMS) Repetition of Three Words (First Attempt): 3 (10/31/24822) Temporal Orientation: Year: Correct (10/31/24822) Temporal Orientation: Month: Accurate within 5 days (10/31/24822) Temporal Orientation: Day: Correct (10/31/24822) Recall: Sock : Yes, no cue required (10/31/24822) Recall: Blue : Yes, no cue required (10/31/24822) Recall: Bed : Yes, after cueing ( a piece of furniture ) (10/31/24822) BIMS Summary Score: 14 (10/31/24822) Memory/Recall Ability Labs: Most recent labs reviewed. CBC with Differential: Recent Labs Lab Units 11/07/24 1056 WBC k/uL 3.16* RBC AUTO m/uL 2.48* HEMOGLOBIN g/dL 7.5* HEMATOCRIT % 23.7* PLATELETS AUTO k/uL 580* MCV fL 95.6 MCH pg 30.2 MCHC g/dL 31.6 [ MG/PHOS: Recent Labs Lab Units 11/08/24 0521 MAGNESIUM mg/dL 2.1 PHOSPHORUS mg/dL 4.4 PT/INR: CMP: Recent Labs Lab Units 11/08/24 0521 11/07/24 1056 SODIUM mmol/L 135* 136 POTASSIUM mmol/L 4.6 4.8 CHLORIDE mmol/L 97* 96* CO2 mmol/L 27 24 BUN mg/dL 17 16 CREATININE mg/dL 1.55* 1.50* GLUCOSE mg/dL 92 77 PROTEIN TOTAL g/dL -- 5.4* CALCIUM mg/dL 9.0 8.8 ALBUMIN g/dL -- 3.0* BILIRUBIN, TOTAL mg/dL -- 0.3 ALKALINE PHOSPHATASE U/L -- 156* ALT U/L -- 12 AST U/L -- 18 ANION GAP mmol/L 11 16* LFT's: Recent Labs Lab Units 11/07/24 1056 PROTEIN TOTAL g/dL 5.4* ALKALINE PHOSPHATASE U/L 156* AST U/L 18 ALT U/L 12 Glucose Last 3 Days: Imaging: US abdomen limited Result Date: 11/06/2024 * * *Final Report* * * DATE OF EXAM: Nov 06 2024 3:45PM S0U [id number] - US ABDOMEN LTD / PROCEDURE REASON: ASCITES SURVEY * * * * Physician Interpretation * * * * Clinical information: Ascites Ascites survey was performed. Images were obtained and stored in a permanent archive. Small to moderate volume ascites within the right lower quadrant, left upper quadrant, and left lower quadrant. Ascites contains multiple septations. Partially visualized small right-sided pleural effusion. Impression: Small to moderate volume ascites containing multiple septations Stripper Apprentice: [employer] Transcribe Date/Time: Nov 06 2024 4:32P Dictated by : AMARILIS MACK MD This examination was interpreted and the report reviewed and electronically signed by: AMARILIS MACK MD on Nov 06 2024 4:33PM EST XR lumbar spine 1 vws Result Date: 11/04/2024 * * *Final Report* * * DATE OF EXAM: Nov 04 2024 3:30PM [id number] - XR LUMBAR 1V / PROCEDURE REASON: 11/24 acute on chronic back pain with hx of compression fractures * * * * Physician Interpretation * * * * Information: Back pain, compression fractures Limited AP only view of the lumbar spine was obtained. Study correlated with CT scan dated 10/24/2024. Compression deformities involving T11 and T12, visualization is limited. No definite lumbar compression fractures. Lumbardisc spaces are grossly maintained. Impression: Limited AP only study with suboptimal visualizationof the lumbar spine. No definite lumbar compression fracture. T11 and T12 compression fractures better seen on prior CT scan. Stripper Apprentice: [employer] Transcribe Date/Time: Nov 04 2024 4:31P Dictated by : AMARILIS MACK MD This examination was interpreted and the report reviewed and electronically signed by: AMARILIS MACK MD on Nov 04 2024 4:32PM EST XR CHEST 1 VWS Result Date: 11/04/2024 * * *Final Report* * * DATE OF EXAM: Nov 01 2024 2:39PM [id number] [id number] - XR CHEST 1V FRONTAL / PROCEDURE REASON: pleural effusion * * * * Physician Interpretation * * * * EXAMINATION:CHEST RADIOGRAPH (PORTABLE SINGLE VIEW AP) EXAM DATE/TIME: 11/01/2024 2:39 PM INDICATIONS: Shortnessof breath. Pleural effusion MQ: XCPR_5 COMPARISON: 10/14/2024 RESULT: Lines, tubes, and devices: Interval placement of a right PICC line, with the distal tip in the lower SVC/upper atrium. Lungs and pleura: Interval decrease in opacification of the right lower lung zone, compatible with decrease inright pleural effusion and right basilar opacities. Small to moderate amount of airspace opacities still persists in the right lower lung zone; atelectasis/scarring versus infiltrates. Small amount of patchy opacities in the left lower lung zone that could be related to mild subsegmental atelectasis. A tiny left pleural effusion cannot be excluded. Prominence of interstitial markings raising the possibility of mild pulmonary vascular congestion. Cardiomediastinal silhouette: Stable cardiomediastinal silhouette. No acute osseous abnormality. IMPRESSION: Interval decrease in the right pleural effusion and right basilar opacities. Possible mild pulmonary vascular congestion. Stripper Apprentice: [employer] Transcribe Date/Time: Nov 04 2024 8:27A Dictated by : CHARIS WHALEN MD This examination was interpreted and the report reviewed and electronically signed by: CHARIS WHALEN MD on Nov 04 2024 8:28AM EST US abdomen limited Result Date: 11/03/2024 * * *Final Report* * * DATE OF EXAM: Nov 03 2024 1:28PM [facility] 1064 - US ABDOMEN LTD / PROCEDURE REASON: evaluate for ascites * * * * Physician Interpretation * * * * EXAMINATION: US ABDOMEN LTD HISTORY: evaluate for ascites TECHNIQUE: Limited evaluation of the abdomen to evaluate for ascites . Images were obtained and stored in a permanent archive. COMPARISON: 10/29/2024 ultrasound RESULT: See Impression. - IMPRESSION: Small to moderate volume of multiloculated ascites with numerous septations is similar to prior study. Stripper Apprentice: [facility] Transcribe Date/Time: Nov 03 2024 2:13P Dictated by : MD YOLANDA This examination was interpreted and the report reviewed and electronically signed by: JIM LUZ MD on Nov 03 2024 2:14PM EST US DOPPLER COMPLETE Result Date: 10/29/2024 * * *Final Report* * * DATE OF EXAM: Oct 29 2024 3:39PM [facility] 1033 - US DOPPLER COMPLETE / PROCEDURE REASON: Liver transplant * * * * Physician Interpretation * * * * EXAMINATION:LIVER VASCULAR ULTRASOUND WITH DOPPLER IMAGING CLINICAL HISTORY: 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 Images were obtained and stored in a permanent archive. MQ: USLV_1 COMPARISON:CT 10/24/2024, ultrasound 10/19/2024. RESULT: Sonographic Findings: Pancreas: Normal sonographic appearance. Portions obscured: tail Liver: Echotexture: Normal, homogeneous. Echogenicity: Normal Surface contour: Smooth Lesions: None. Biliary: No intrahepatic biliary duct dilation. Stable pneumobilia. CBD: 0.8 cm at the hilum. Gallbladder: Prior cholecystectomy. Gallbladder fossa partially obscured with drain in place. Right Kidney: No hydronephrosis. Spleen: Craniocaudal length 9.4 cm, normal. There are no splenic lesions. Other: Moderate volume loculated ascites, increased from prior ultrasound 10/19/2024 HEPATIC VASCULATURE: PORTAL SYSTEM: -Splenic Vein: Patent with antegrade flow (towards the liver). -Main PV: Patent with phasic antegrade flow (towards liver). 44-58 cm/sec. Previously 38-53 cm/sec. -Right anterior PV: Patent with phasic antegrade flow (towards liver). 25.5 cm/sec. Pre viously 30 cm/sec -Right posterior PV: Patent with phasic antegrade flow (towards liver). 30 cm/sec. Previously 32 cm/sec -Left PV: Patent with phasic antegrade flow (towards liver). 19 cm/sec. Previously 26 cm/sec HEPATIC ARTERIES: - Main THIBODEAUX: Normal waveform PSV: 51-57 cm/sec. RI: 0.74-0.75. Previo usly 70-84 cm/sec. RI: 0.76-0.80 - Right anterior THIBODEAUX: Normal waveform PSV: 59 cm/sec. RI: 0.68. Previously 66 cm/sec. RI: 0.72 - Right posterior THIBODEAUX: Normal waveform PSV: 81 cm/sec. RI: 0.74. Previously 66 cm/sec. RI: 0.77 - Left THIBODEAUX: Normal waveform PSV: 60 cm/sec. RI: 0.70. Previously 73 cm/sec. RI: 0.77 HEPATIC VEINS: -Left: Patent with triphasic waveform. -Middle: Patent with triphasic waveform. -Right: Patent with triphasic waveform. IVC: Patent with normal, phasic wave form. IMPRESSION: Patent hepatic vasculature with appropriately directed flow. Mildly increased multiloculated ascites. Stripper Apprentice: [employer] Transcribe Date/Time: Oct 29 2024 3:46P Dictated by : MARIO YU MD This examination was interpreted and the report reviewed and electronically signed by: AMARILIS ADAMSON MD on Oct 29 2024 4:11PM EST US ABD LIVER VASCULAR TRANSPLANT () Result Date: 10/29/2024 * * *Final Report* * * DATE OF EXAM: Oct 29 2024 3:00PM [facility] 0685 - ABD LIVER VASCULAR TRANSPLANT/ PROCEDURE REASON: Liver transplant * * * * Physician Interpretation * * * *EXAMINATION: LIVER VASCULAR ULTRASOUND WITH DOPPLER IMAGING CLINICAL HISTORY: 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 Images were obtained and stored in a permanent archive. MQ: USLV_1 COMPARISON: CT 10/24/2024, ultrasound 10/19/2024. RESULT: Sonographic Findings: Pancreas: Normal sonographic appearance. Portions obscured: tail Liver: Echotexture: Normal, homogeneous. Echogenicity: Normal Surface contour: Smooth Lesions: None. Biliary: No intrahepatic biliary duct dilation. Stable pneumobilia. CBD: 0.8 cm at the hilum. Gallbladder: Prior cholecystectomy. Gallbladder fossa partially obscured with drain in place. Right Kidney: No hydronephrosis. Spleen: Craniocaudal length 9.4cm, normal. There are no splenic lesions. Other: Moderate volume loculated ascites, increased from p rior ultrasound 10/19/2024 HEPATIC VASCULATURE: PORTAL SYSTEM: -Splenic Vein: Patent with antegradeflow (towards the liver). -Main PV: Patent with phasic antegrade flow (towards liver). 44-58 cm/sec. Previously 38-53 cm/sec. -Right anterior PV: Patent with phasic antegrade flow (towards liver). 25.5 cm/sec. Previously 30 cm/sec -Right posterior PV: Patent with phasic antegrade flow (towards liver). 30 cm/sec. Previously 32 cm/sec -Left PV: Patent with phasic antegrade flow (towards liver). 19 cm/sec. Previously 26 cm/sec HEPATIC ARTERIES: - Main THIBODEAUX: Normal waveform PSV: 51-57 cm/sec. RI: 0.74-0.75. Previously 70-84 cm/sec. RI: 0.76-0.80 - Right anterior THIBODEAUX: Normal waveform PSV: 59 cm/sec.RI: 0.68. Previously 66 cm/sec. RI: 0.72 - Right posterior THIBODEAUX: Normal waveform PSV: 81 cm/sec. RI: 0.74. Previously 66 cm/sec. RI: 0.77 - Left THIBODEAUX: Normal waveform PSV: 60 cm/sec. RI: 0.70. [id number] cm/sec. RI: 0.77 HEPATIC VEINS: -Left: Patent with triphasic waveform. -Middle: Patent with triphasic waveform. -Right: Patent with triphasic waveform. IVC: Patent with normal, phasic wave form. IMPRESSION: Patent hepatic vasculature with appropriately directed flow. Mildly increased multiloculated ascites. Stripper Apprentice: [facility] Transcribe Date/Time: Oct 29 2024 3:46P Dictated by : MARIO YU MD This examination was interpreted and the report reviewed and electronically signed by: AMARILIS ADAMSON MD on Oct 29 2024 4:11PM DAVID MALIK DO High complexity of service: including either time > 50 minutes involving therapy documentation review, independent interpretations of tests, face time, floor time, review of recent diagnostics tests with interpretation, interpretation of diagnostics tests to formulate new plans or observe current stability, coordination of care and/or family discussion of management of care. * Betty Dias DO - 11/07/2024 3:06 PM EDT Medicine Follow Up Note [facility] Patient identification: Name: Charles Blandon : 1955 Admitted: 10/30/2024 7:01 PM Subjective: Resting in bed. C/o fatigue and sleepiness. Abdomen still distended. Small ascites on survey, KUB with gas filled [id number]. Last BM 11/07. SO states he is more independent with transfers ROS: +Acute on chronic back pain +Abdominal distention Objective: BP 118/80 Pulse 85 Temp 97.6 ??F (36.4 ??C) (Oral) Resp 17 Ht 5' 9 (1.753 m) Wt 168 lb (76.2 kg) SpO2 96% BMI 24.81 kg/m?? Intake/Output last 3 shifts: I/O last 3 completed shifts: In: 860 [P.O.:860] Out: 2475 Intake/Output this shift: I/O this shift: In: 440 [P.O.:440] Out: 220 Weight: Weight change: -8 oz (-0.227 kg) Physical Exam: General: Awake, alert. In mild distress HEENT: NCAT Lungs: CTA b/l Heart; S1 S2 normal Abdomen: non-distended Extremities: no edema Assessment/Plan: Hx of Liver transplantation CBD stent Bile leak (s/p perihepatic aspiration and drain placement) Continue daptomycin for 4 week course Repeat ERCP in 1 month Continue Bactrim, Prograf, Valcyte Monitor CMV Continue baby aspirin due to thrombocytosis Ascites survey-small to moderate ascites VRE (vancomycin-resistant Enterococci) infection Continue Daptomycin, monitor CK Cytomegalovirus (CMV) viremia Continue Valcyte Follow CMV levels qMon Fluid overload Continue Lasix Trans daily weights RENATE Cr 0.8 (yesterday)>> 1.5 (today) F/u STAT bladder scan to r/o retention Stop lasix Nausea & vomiting Ileus without SBO Abdominal distention (small ascites) Continue regular diet Continue bowel regimen Zofran PRN KUB-non obstructive, gas filled loops Start simethicone 4x daily Chronic bilateral low back pain without sciatica History of T11 and T12 compression fractures Consulted Neurosurgery - not an appropriate surgical candidate Pain control PT/OT Lumbar x-ray-no acute abnormalities Vertigo CT brain 10/07: negative MRI brain 10/24: negative for acute abnormality follow up with Vestibular Neurologist, Dr. Roach Moderate-sized loculated right hydropneumothorax. Medium-sized left pleural effusion RVP (+) parainfluenza 3 S/p left thoracentesis 10/14: 320 cc drained, culture NGTD Stable, currently on room air Anemia due to multiple mechanisms Monitor Severe protein-calorie malnutrition Continue regular diet Nutrition following GERD (gastroesophageal reflux disease) Continue pepcid BID DVT ppx; Heparin BID Betty Dias D.O. Post Acute Hospitalist [facility] * Barry Stephen Palmer, PIE BAKER - 11/07/2024 2:08 PM EDT Nephrology Progress Note Subjective: Interval History: Charles leiva Patient medications: Reviewed, see medication history. Objective: Vital signs in last 24 hours: Temp: [97.6 ??F (36.4 ??C)-98.1 ??F (36.7 ??C)] 97.6 ??F (36.4 ??C) Pulse: [59-94] 85 Resp: [17-18] 17 BP: (81-128)/(58-80) 118/80 Intake/Output last 3 shifts: I/O last 3 completed shifts: In: 860 [P.O.:860] Out: 2475 Intake/Output this shift: I/O this shift: In: 180 [P.O.:180] Out: 220 Weight: Wt Readings from Last 3 Encounters: 11/07/24 168 lb (76.2 kg) 10/07/24 164 lb 4.8 oz (74.5 kg) Physical Exam: General appearance: alert, appears stated age, and cooperative Lungs: clear to auscultation bilaterally Heart: regular rate and rhythm, S1, S2 normal, no murmur, click, rub or gallop Abdomen: soft, non-tender; bowel sounds normal; no masses, no organomegaly Extremities: extremities normal, atraumatic, no cyanosis or edema Pulses: 2+ and symmetric Skin: Skin color, texture, turgor normal. No rashes or lesions Neurologic: Grossly normal Labs: CBC: Recent Labs Lab Units 11/07/24 1056 WBC k/uL 3.16* RBC AUTO m/uL 2.48* HEMOGLOBIN g/dL 7.5* HEMATOCRIT % 23.7* MCV fL 95.6 PLATELETS AUTO k/uL 580* BMP: Recent Labs Lab Units 11/04/24 0510 SODIUM mmol/L 134* POTASSIUM mmol/L 5.0 CHLORIDE mmol/L 98 CO2 mmol/L 25 BUN mg/dL 10 CREATININE mg/dL 0.99 GLUCOSE mg/dL 88 CALCIUM mg/dL 8.5 ANION GAP mmol/L 11 MG/PHOS: Recent Labs Lab Units 11/07/24 1056 11/04/24 0510 MAGNESIUM mg/dL -- 1.6* PHOSPHORUS mg/dL 4.6 4.9* Assessment/ Plan: Active Problems: Critical illness myopathy LOS: 8 days He reports his symptoms are improving with treatment. Charles Blandon is a 69 year old male with a past medical history CKD 3 baseline creatinine 1.0-1.1,eGFR 60's-70's, HHT, Tipton's esophagus, and ETOH cirrhosis complicated by portal HTN, ascites, HE, large EV, and recently diagnosed HCC. He was admitted on to [facility] on 08/23 with altered mental status and hyponatremia. He was subsequently listed for liver transplant on 09/04/24. Now s/p DCD-OLT on 09/09/24. Patient was treated for RENATE Cr >2.8, resolved 09/16. Status improved and discharged to [facility] on 09/29. Patient returned to [facility] for admission on 10/07 w increased Shortness of Breath anddiarrhea. Pulmonary consulted and did not recommend thoracentesis but diuresis. Zosyn started for PNA coverage. RVP (+) parainfluenza and supportive care given. Required ERCP 10/15. Stay was complicated by Bile leak, image guided abdominal drain placement into collection with posituve cultures for E.Faecium. Started on IV dapotmycin, ordered until 11/12/24. Developed left pleural effusion requiringdiuresis and thoracentesis on 10/14 as well as gastric gaseous distension and scattered gas filled nondilated small bowel and colon requiring NG tube placement. ECHO on 10/17 showed an EF of 55% with normal LV function. Stay was further complicated by severe back pain, MRI obtained per neurology. 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 Pt discharged to [place] on 10/30. RENATE secondary to prerenal azotemia in setting of hypotension (resolved), now with RENATE on 11/07 secondary to prerenal azotemia in setting of hypotension on CKD stage 3 Baseline Cr 0.8-0.9 Cr up to 1.5 on 11/07, will administer albumin 25 g x 2 doses Will recheck lab work tomorrow. HTN Currently off antihypertensives Now with hypotension of dysautonomia on 11/06 Orthostatic VS with positive results, drop in BP noted while sitting and standing. Good responses to x 1 dose of albumin on 11/06 and scheduled midodrine. BP continues to be soft today Continue Midodrine 10 mg TID Will give additional albumin today Diuretics held by IM team, agree to hold and will check on kidney function throughout weekend and reassess resumption. Continue to follow the trend of BP HFpEF Fluid overload and anasarca Chest x-ray with components of edema Ultrasound abdomen showed moderate ascites Last echo 10/17 with EF 55% Required paracentesis at different occasions last October 30 Hold lasix 40 mg up to twice a day, in presence of RENATE Previously given Metolazone 10 mg for 2 days Monitor urine output and daily weight Anemia Hgb stable, on MARGO therapy will continue to trend Liver Transplant September 04, 2024 On bactrim and tacrolimus and valcyte Will continue to follow the trend of kidney function Biliary stent infection On daptomycin until 11/13 Hypomagnesemia Stable, Continue scheduled PO mag oxide 800 mg TID will continue to follow the trend. Results of MRI brain were discussed with neurology who recommended outpatient followup with Vestibular Neurologist Case discussed with Dr. 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 Functional Bowel Incontinence Protein Calorie Malnutrition Gait Abnormality Ambulatory Dysfunction ADL Dysfunction Debility Cognitive Impairment Constipation Coordination Deficit Spasticity Skin Wound Neuropathic Pain Chronic Pain Balance Deficits PLAN: IM, ID, Nephro, Pulm, Cardio Consult Psychologist consultation and evaluation, Melatonin, Trazodone; remeron Biweekly immunosuppression labs, viral surveillance titre's weekly and biweekly IDT with liver transplant team ATB Daptomycin IV to complete 11/12 Prophylaxis: Acyclovir, Bactrim, Nystatin swish/swallow completes 09/30 Immunosuppression: prograf bid, cellcept bid, prednisone completed 09/30 Midodrine tid to keep BP normal Bowel Program: Miralax, Colace, Senna, Dulcolax Glycemic Control:Lispro Bladder Retraining and eval for high PVR and IC if >300, Flomax Nutritional Support - Adult Diet Regular; 7 Regular (Regular Texture); 0 Thin (All Liquids) GI prophylaxis: Protonix Fall Prevention Isolation: No active isolations Pain management: Acetaminophen, Oxycodone, Lidocaine, Robaxin DVT prophylaxis: Lovenox 11/05 add butrans 5mcg patch for chronic back pain 11/06 IM getting u/s to asses for ascites 11/07 get KUB Rehab Issues: Potential barriers to progress- complex medical issues, significant impairments. Rehab plan- PT/OT for ADLs, transfer, and gait training, ROM , strengthening and balance exercises,assistive device prescription. Rehab nursing for skin care, bowel and bladder care, administration of medication, patient and family education. Case management for care coordination and discharge.Therapy schedule will be 3 hrs/day x 5-6 days/week or 15 hrs/7 days in special situations. Weekly Interdisciplinary Rehab Team Meeting to address barriers to discharge and coordination of care. Subjective: 10 pt ROS negative for - chills, fatigue, fever, malaise, night sweats, sleep disturbance, or THIBODEAUX, CP, SOB, diarrhea Current Function: 11/07/2024: Functional Status PT Data (since 11/04/2024) Value Time User Bed Mobility Level of Assist Close Supervision 11/07/2024 9:45 AM Jessica Kinsey, PT Bed Mobility Comment Sit to supine with SBA 11/07/2024 9:45 AM Jessica Kinsey, PT Transfer to Wheelchair 11/06/2024 2:55 PM Makenzie Emmanuel, PT Transfer from Bed 11/06/2024 2:55 PM Makenzie Emmanuel, PT Transfer Level of Assist Close Supervision 11/07/2024 9:45 AM Jessica Kinsey, PT Ambulation Level of Assist Close Supervision 11/07/2024 9:45 AM Jessica Kinsey, PT Distance (feet) 180 11/07/2024 9:45 AM Jessica Kinsey, PT Gait Analysis 180 ft x3 with RW and SBA to monitor balance and exertion. Pt takes brief standing rest breaks due to fatigue and mild dizziness. Vitals assessed BP 100/68, HR 88 bpm, SpO2 96%. Almas hose donned dependently following 1st bout. Pt tilted partially back in chair to manage pain between bouts. Pt demos mild unsteadiness, appropriate step length/height, mild toe-out bilaterally. 11/07/2024 9:45 AM Jessica Kinsey, PT Objective: Physical Exam: VS: BP 118/80 Pulse 85 Temp 97.6 ??F (36.4 ??C) (Oral) Resp 17 Ht 5' 9 (1.753 m) Wt 168 lb (76.2 kg) SpO2 96% BMI 24.81 kg/m?? General: NAD CV: No c/c/e Pulm: No audible wheezing or stridor Abdomen: soft, non-tender, No g/r/r Extremities: Full ROM in all limbs, Tone normal in all limbs Wound Management: Wound Management Orders (From admission, onward) Start Ordered 11/01/24 1400 Wound Management: Use Associated Wounds location ([place]); Wound prevention Weekly Comments: Apply foam. Assess under foam with each skin assessment. Question Answer Comment Wound Location Use Associated Wounds location [place] Wound Management Wound prevention 10/31/24 1115 10/31/24 0933 Wound Management: Use Associated Wounds location (ALL WOUNDS/PREVENTION); Wound care per algorithm Per algorithm Question Answer Comment Wound Location Use Associated Wounds location ALL WOUNDS/PREVENTION Wound Management Wound care per algorithm 10/31/24 0932 Section GG CARE Scores - Current All Therapy Physical Therapy Car Transfer Car Transfer - CARE Score: 3 (11/04/24 153) Walk 10 Feet Walk 10 Feet - CARE Score: 4 (11/04/241533) Walk 50 Feet with Two Turns Walk 50 Feet with Two Turns - CARE Score: 4 (11/04/241533) Walk 150 Feet Walk 150 Feet - CARE Score: 4 (11/04/241533) Walking 10 Feet on Uneven Surfaces Walking 10 Feet on Uneven Surfaces - CARE Score: 88 (11/04/24 153) 1 Step (Curb) 1 Step (Curb) - CARE Score: 4 (11/04/24 153) 4 Steps 4 Steps - CARE Score: 4 (11/04/24 153) 12 Steps 12 Steps - CARE Score: 88 (11/04/24 153) Picking Up Object Picking Up Object - CARE Score: 88 (11/04/24 153) Wheel 50 Feet with Two Turns Wheel 50 Feet with Two Turns - CARE Score: 1 (11/04/24 153) Wheel 150 Feet Wheel 150 Feet - CARE Score: 1 (11/04/24 153) Occupational Therapy Eating Eating - CARE Score: 5 (11/04/24 154) Oral Hygiene Oral Hygiene - CARE Score: 5 (11/04/24 154) Toileting Hygiene Toileting Hygiene - CARE Score: 2 (11/04/24 154) Shower/Bathe Self Shower/Bathe Self - CARE Score: 2 (11/04/24 154) Upper Body Dressing Upper Body Dressing - CARE Score: 3 (11/04/24 154) Lower Body Dressing Lower Body Dressing - CARE Score: 2 (11/04/241543) Putting On/Taking Off Footwear Putting On/Taking Off Footwear - CARE Score: 3 (11/04/241543) Roll Left and Right Roll Left and Right - CARE Score: 3 (11/04/241543) Sit to Lying Sit to Lying - CARE Score: 4 (11/04/241543) Lying to Sitting on Side of Bed Lying to Sitting on Side of Bed - CARE Score: 4 (11/04/241543) Sit to Stand Sit to Stand - CARE Score: 4 (11/04/241543) Chair/Axb-vn-[id number] Transfer Chair/Coc-wl-Gynsl Transfer - CARE Score: 4 (11/04/241543) Toilet Transfer Toilet Transfer - CARE Score: 4 (11/04/241543) Speech Therapy Expression of Ideas and Wants Expression of Ideas and Wants: Without difficulty (10/31/24822) Understanding Verbal and Non-Verbal Content Understanding Verbal and Non-Verbal Content: Understands (10/31/24822) BIMS Brief Interview for Mental Status (BIMS) Repetition of Three Words (First Attempt): 3 (10/31/24822) Temporal Orientation: Year: Correct (10/31/24822) Temporal Orientation: Month: Accurate within 5 days (10/31/24822) Temporal Orientation: Day: Correct (10/31/24822) Recall: Sock : Yes, no cue required (10/31/24822) Recall: Blue : Yes, no cue required (10/31/24822) Recall: Bed : Yes, after cueing ( a piece of furniture ) (10/31/24822) BIMS Summary Score: 14 (10/31/24822) Memory/Recall Ability Labs: Most recent labs reviewed. CBC with Differential: Recent Labs Lab Units 11/07/24 1056 WBC k/uL 3.16* RBC AUTO m/uL 2.48* HEMOGLOBIN g/dL 7.5* HEMATOCRIT % 23.7* PLATELETS AUTO k/uL 580* MCV fL 95.6 MCH pg 30.2 MCHC g/dL 31.6 [ MG/PHOS: Recent Labs Lab Units 11/07/24 1056 11/04/24 0510 MAGNESIUM mg/dL -- 1.6* PHOSPHORUS mg/dL 4.6 4.9* PT/INR: CMP: Recent Labs Lab Units 11/04/24 0510 SODIUM mmol/L 134* POTASSIUM mmol/L 5.0 CHLORIDE mmol/L 98 CO2 mmol/L 25 BUN mg/dL 10 CREATININE mg/dL 0.99 GLUCOSE mg/dL 88 PROTEIN TOTAL g/dL 5.2* CALCIUM mg/dL 8.5 ALBUMIN g/dL 2.6* BILIRUBIN, TOTAL mg/dL 0.3 ALKALINE PHOSPHATASE U/L 165* ALT U/L 10 AST U/L 17 ANION GAP mmol/L 11 LFT's: Recent Labs Lab Units 11/04/24 0510 PROTEIN TOTAL g/dL 5.2* ALKALINE PHOSPHATASE U/L 165* AST U/L 17 ALT U/L 10 Glucose Last 3 Days: Imaging: US abdomen limited Result Date: 11/06/2024 * * *Final Report* * * DATE OF EXAM: Nov 06 2024 3:45PM [id number] - US ABDOMEN LTD / PROCEDURE REASON: ASCITES SURVEY * * * * Physician Interpretation * * * * Clinical information: Ascites Ascites survey was performed. Images were obtained and stored in a permanent archive. Small to moderate volume ascites within the right lower quadrant, left upper quadrant, and left lower quadrant. Ascites contains multiple septations. Partially visualized small right-sided pleural effusion. Impression: Small to moderate volume ascites containing multiple septations Stripper Apprentice: SRINI Transcribe Date/Time: Nov 06 2024 4:32P Dictated by : AMARILIS MACK MD This examination was interpreted and the report reviewed and electronically signed by: AMARILIS MACK MD on Nov 06 2024 4:33PM EST XR lumbar spine 1 vws Result Date: 11/04/2024 * * *Final Report* * * DATE OF EXAM: Nov 04 2024 3:30PM [id number] [id number] - XR LUMBAR 1V / PROCEDURE REASON: 11/24 acute on chronic back pain with hx of compression fractures * * * * Physician Interpretation * * * * Information: Back pain, compression fractures Limited AP only view of the lumbar spine was obtained. Study correlated with CT scan dated 10/24/2024. Compression deformities involving T11 and T12, visualization is limited. No definite lumbar compression fractures. Lumbar disc spaces are grossly maintained. Impression: Limited AP only study with suboptimal visualization of the lumbar spine. No definite lumbar compression fracture. T11 and T12 compression fractures better seen on prior CT scan. Stripper Apprentice: SRINI Transcribe Date/Time: Nov 04 2024 4:31P Dictated by: AMARILIS MACK MD This examination was interpreted and the report reviewed and electronically signed by: AMARILIS MACK MD on Nov 04 2024 4:32PM EST XR CHEST 1 VWS Result Date: 11/04/2024 * * *Final Report* * * DATE OF EXAM: Nov 01 2024 2:39PM [id number] [id number] - XR CHEST 1V FRONTAL / PROCEDURE REASON: pleural effusion * * * * Physician Interpretation * * * * EXAMINATION:CHEST RADIOGRAPH (PORTABLE SINGLE VIEW AP) EXAM DATE/TIME: 11/01/2024 2:39 PM INDICATIONS: Shortnessof breath. Pleural effusion MQ: XCPR_5 COMPARISON: 10/14/2024 RESULT: Lines, tubes, and devices: Interval placement of a right PICC line, with the distal tip in the lower SVC/upper atrium. Lungs and pleura: Interval decrease in opacification of the right lower lung zone, compatible with decrease inright pleural effusion and right basilar opacities. Small to moderate amount of airspace opacities still persists in the right lower lung zone; atelectasis/scarring versus infiltrates. Small amount of patchy opacities in the left lower lung zone that could be related to mild subsegmental atelectasis. A tiny left pleural effusion cannot be excluded. Prominence of interstitial markings raising the possibility of mild pulmonary vascular congestion. Cardiomediastinal silhouette: Stable cardiomediastinal silhouette. No acute osseous abnormality. IMPRESSION: Interval decrease in the right pleural effusion and right basilar opacities. Possible mild pulmonary vascular congestion. Stripper Apprentice: [facility] Transcribe Date/Time: Nov 04 2024 8:27A Dictated by : CHARIS WHALEN MD This examination was interpreted and the report reviewed and electronically signed by: CHARIS WHALEN MD on Nov 04 2024 8:28AM EST US abdomen limited Result Date: 11/03/2024 * * *Final Report* * * DATE OF EXAM: Nov 03 2024 1:28PM S0U [id number] - US ABDOMEN LTD / PROCEDURE REASON: evaluate for ascites * * * * Physician Interpretation * * * * EXAMINATION:US ABDOMEN LTD HISTORY: evaluate for ascites TECHNIQUE: Limited evaluation of the abdomen to evaluate for ascites . Images were obtained and stored in a permanent archive. COMPARISON: 10/29/2024 ultrasound RESULT: See Impression. - IMPRESSION: Small to moderate volume of multiloculated ascites with numerous septations is similar to prior study. Stripper Apprentice: SRINI Transcribe Date/Time: Nov 03 2024 2:13P Dictated by : MD YOLANDA This examination was interpreted and the report reviewed and electronically signed by: JIM LUZ MD on Nov 03 2024 2:14PM EST US DOPPLER COMPLETE Result Date: 10/29/2024 * * *Final Report* * * DATE OF EXAM: Oct 29 2024 3:39PM [facility] 1033 - US DOPPLER COMPLETE / PROCEDURE REASON: Liver transplant * * * * Physician Interpretation * * * * EXAMINATION:LIVER VASCULAR ULTRASOUND WITH DOPPLER IMAGING CLINICAL HISTORY: 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 Images were obtained and stored in a permanent archive. MQ: USLV_1 COMPARISON:CT 10/24/2024, ultrasound 10/19/2024. RESULT: Sonographic Findings: Pancreas: Normal sonographic appearance. Portions obscured: tail Liver: Echotexture: Normal, homogeneous. Echogenicity: Normal Surface contour: Smooth Lesions: None. Biliary: No intrahepatic biliary duct dilation. Stable pneumobilia. CBD: 0.8 cm at the hilum. Gallbladder: Prior cholecystectomy. Gallbladder fossa partially obscured with drain in place. Right Kidney: No hydronephrosis. Spleen: Craniocaudal length 9.4 cm, normal.There are no splenic lesions. Other: Moderate volume loculated ascites, increased from prior ultrasound 10/19/2024 HEPATIC VASCULATURE: PORTAL SYSTEM: -Splenic Vein: Patent with antegrade flow (towards the liver). -Main PV: Patent with phasic antegrade flow (towards liver). 44-58 cm/sec. [id number] cm/sec. -Right anterior PV: Patent with phasic antegrade flow (towards liver). 25.5 cm/sec. Pr eviously 30 cm/sec -Right posterior PV: Patent with phasic antegrade flow (towards liver). 30 cm/sec. Previously 32 cm/sec -Left PV: Patent with phasic antegrade flow (towards liver). 19 cm/sec. Previously 26 cm/sec HEPATIC ARTERIES: - Main THIBODEAUX: Normal waveform PSV: 51-57 cm/sec. RI: 0.74-0.75. Previ ously 70-84 cm/sec. RI: 0.76-0.80 - Right anterior THIBODEAUX: Normal waveform PSV: 59 cm/sec. RI: 0.68. Previously 66 cm/sec. RI: 0.72 - Right posterior THIBODEAUX: Normal waveform PSV: 81 cm/sec. RI: 0.74. Previously 66 cm/sec. RI: 0.77 - Left THIBODEAUX: Normal waveform PSV: 60 cm/sec. RI: 0.70. Previously 73 cm/sec. RI: 0.77 HEPATIC VEINS: -Left: Patent with triphasic waveform. -Middle: Patent with triphasic waveform. -Right: Patent with triphasic waveform. IVC: Patent with normal, phasic wave form. IMPRESSION: Patent hepatic vasculature with appropriately directed flow. Mildly increased multiloculated ascites. Stripper Apprentice: [facility] Transcribe Date/Time: Oct 29 2024 3:46P Dictated by : MARIO YU MD This examination was interpreted and the report reviewed and electronically signed by: AMARILIS ADAMSON MD on Oct 29 2024 4:11PM EST US [facility] LIVER VASCULAR TRANSPLANT () Result Date: 10/29/2024 * * *Final Report* * * DATE OF EXAM: Oct 29 2024 3:00PM [facility] 0685 - ABD LIVER VASCULAR TRANSPLANT/ PROCEDURE REASON: Liver transplant * * * * Physician Interpretation * * * *EXAMINATION: LIVER VASCULAR ULTRASOUND WITH DOPPLER IMAGING CLINICAL HISTORY: 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 Images were obtained and stored in a permanent archive. MQ: USLV_1 COMPARISON: CT 10/24/2024, ultrasound 10/19/2024. RESULT: Sonographic Findings: Pancreas: Normal sonographic appearance. Portions obscured: tail Liver: Echotexture: Normal, homogeneous. Echogenicity: Normal Surface contour: Smooth Lesions: None. Biliary: No intrahepatic biliary duct dilation. Stable pneumobilia. CBD: 0.8 cm at the hilum. Gallbladder: Prior cholecystectomy. Gallbladder fossa partially obscured with drain in place. Right Kidney: No hydronephrosis. Spleen: Craniocaudal length 9.4cm, normal. There are no splenic lesions. Other: Moderate volume loculated ascites, increased from p rior ultrasound 10/19/2024 HEPATIC VASCULATURE: PORTAL SYSTEM: -Splenic Vein: Patent with antegradeflow (towards the liver). -Main PV: Patent with phasic antegrade flow (towards liver). 44-58 cm/sec. Previously 38-53 cm/sec. -Right anterior PV: Patent with phasic antegrade flow (towards liver). 25.5 cm/sec. Previously 30 cm/sec -Right posterior PV: Patent with phasic antegrade flow (towards liver). 30 cm/sec. Previously 32 cm/sec -Left PV: Patent with phasic antegrade flow (towards liver). 19 cm/sec. Previously 26 cm/sec HEPATIC ARTERIES: - Main THIBODEAUX: Normal waveform PSV: 51-57 cm/sec. RI: 0.74-0.75. Previously 70-84 cm/sec. RI: 0.76-0.80 - Right anterior THIBODEAUX: Normal waveform PSV: 59 cm/sec. RI: 0.68. Previously 66 cm/sec. RI: 0.72 - Right posterior THIBODEAUX: Normal waveform PSV: 81 cm/sec. RI: 0.74. Previously 66 cm/sec. RI: 0.77 - Left THIBODEAUX: Normal waveform PSV: 60 cm/sec. RI: 0.70. [id number] cm/sec. RI: 0.77 HEPATIC VEINS: -Left: Patent with triphasic waveform. -Middle: Patent with triph asic waveform. -Right: Patent with triphasic waveform. IVC: Patent with normal, phasic wave form. IMPRESSION: Patent hepatic vasculature with appropriately directed flow. Mildly increased multiloculated ascites. Stripper Apprentice: SRINI Transcribe Date/Time: Oct 29 2024 3:46P Dictated by : MARIO YU MD This examination was interpreted and the report reviewed and electronically signed by: AMARILIS ADAMSON MD on Oct 29 2024 4:11PM DAVID MALIK DO High complexity of service: including either time > 50 minutes involving therapy documentation review, independent interpretations of tests, face time, floor time, review of recent diagnostics tests with interpretation, interpretation of diagnostics tests to formulate new plans or observe current stability, coordination of care and/or family discussion of management of care. * Chelsea Cunningham MD - 11/06/2024 3:50 PM EDT Nephrology Progress Note Subjective: Interval History: Charles Blandon none Patient medications: Reviewed, see medication history. Objective: Vital signs in last 24 hours: Temp: [97 ??F (36.1 ??C)-98.1 ??F (36.7 ??C)] 97 ??F (36.1 ??C) Pulse: [59-94] 59 Resp: [17-18] 17 BP: (81-135)/(60-85) 114/67 Intake/Output last 3 shifts: I/O last 3 completed shifts: In: 360 [P.O.:360] Out: 1300 Intake/Output this shift: I/O this shift: In: - Out: 900 Weight: Wt Readings from Last 3 Encounters: 11/06/24 168 lb 8 oz (76.4 kg) 10/07/24 164 lb 4.8 oz (74.5 kg) Physical Exam: General appearance: alert, appears stated age, and cooperative Lungs: clear to auscultation bilaterally Heart: regular rate and rhythm, S1, S2 normal, no murmur, click, rub or gallop Abdomen: soft, non-tender; bowel sounds normal; no masses, no organomegaly Extremities: extremities normal, atraumatic, no cyanosis or edema Pulses: 2+ and symmetric Skin: Skin color, texture, turgor normal. No rashes or lesions Neurologic: Grossly normal Labs: CBC: Recent Labs Lab Units 11/04/24 0510 WBC k/uL 3.31* RBC AUTO m/uL 2.56* HEMOGLOBIN g/dL 7.6* HEMATOCRIT % 24.5* MCV fL 95.7 PLATELETS AUTO k/uL 554* BMP: Recent Labs Lab Units 11/04/24 0510 SODIUM mmol/L 134* POTASSIUM mmol/L 5.0 CHLORIDE mmol/L 98 CO2 mmol/L 25 BUN mg/dL 10 CREATININE mg/dL 0.99 GLUCOSE mg/dL 88 CALCIUM mg/dL 8.5 ANION GAP mmol/L 11 MG/PHOS: Recent Labs Lab Units 11/04/24 0510 MAGNESIUM mg/dL 1.6* PHOSPHORUS mg/dL 4.9* Assessment/ Plan: Active Problems: Critical illness myopathy LOS: 7 days He reports his symptoms are improving with treatment. Charles Blandon is a 69 year old male with a past medical history CKD 3 baseline creatinine 1.0-1.1,eGFR 60's-70's, HHT, Tipton's esophagus, and ETOH cirrhosis complicated by portal HTN, ascites, HE, large EV, and recently diagnosed HCC. He was admitted on to [facility] on 08/23 with altered mental status and hyponatremia. He was subsequently listed for liver transplant on 09/04/24. Now s/p DCD-OLT on 09/09/24. Patient was treated for RENATE Cr >2.8, resolved 09/16. Status improved and discharged to [facility] on 09/29. Patient returned to [facility] for admission on 10/07 w increased Shortness of Breath anddiarrhea. Pulmonary consulted and did not recommend thoracentesis but diuresis. Zosyn started for PNA coverage. RVP (+) parainfluenza and supportive care given. Required ERCP 10/15. Stay was complicated by Bile leak, image guided abdominal drain placement into collection with posituve cultures for E.Faecium. Started on IV dapotmycin, ordered until 11/12/24. Developed left pleural effusion requiringdiuresis and thoracentesis on 10/14 as well as gastric gaseous distension and scattered gas filled nondilated small bowel and colon requiring NG tube placement. ECHO on 10/17 showed an EF of 55% with normal LV function. Stay was further complicated by severe back pain, MRI obtained per neurology. 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 Pt discharged to [facility] on 10/30. RENATE secondary to prerenal azotemia in setting of hypotension (resolved) on CKD stage 3 Cr stable at baseline, will continue to follow the trend Creatinine 0.8-> up to 1.5 hemodynamic mediated required holding diuretics, we will give albumin infusions to achieve more stability in the blood pressure given his orthostatic hypotension Bladder scans HTN Currently off antihypertensives Now with hypotension of dysautonomia Orthostatic VS with positive results, drop in BP noted while sitting and standing. Will give x 1 dose of albumin Started on Midodrine 10 mg TID Given albumin infusions Continue to follow the trend of BP HFpEF Fluid overload and anasarca Chest x-ray with components of edema Ultrasound abdomen showed moderate ascites Last echo 10/17 with EF 55% Required paracentesis at different occasions last October 30 Ultrasound abdomen ascites survey we will small to moderate amounts On lasix 40 mg up to twice a day Given Metolazone 10 mg for 2 days Monitor urine output and daily weight Currently diuretics on hold given unstable kidney function We will further trend of kidney function and blood pressure stability consideration for resumption of Lasix later Anemia Hgb 7.9, on MARGO therapy will continue to trend Liver Transplant September 04, 2024 On bactrim and tacrolimus and valcyte Will continue to follow the trend of kidney function Biliary stent infection On daptomycin until 11/13 Hypomagnesemia Continue scheduled PO mag oxide 800 mg TID will continue to follow the trend. Results of MRI brain were discussed with neurology who recommended outpatient followup with Vestibular Neurologist Case discussed with Dr. Cunningham Thank you for your consult We will follow along with you SIGNATURE: BARRY PALMER APRN PATIENT NAME: Charles Blandon DATE: November 06, 2024 TIME: 3:50 PM EDT PAGER: * Betty Dias DO - 11/06/2024 3:06 PM EDT Medicine Follow Up Note [facility] Patient identification: Name: Charles Blandon : 1955 Admitted: 10/30/2024 7:01 PM Subjective: Seen with SO during therapy Abdomen appears distended today ROS: +Acute on chronic back pain +Abdominal distention Objective: BP 114/67 Pulse 59 Temp 97 ??F (36.1 ??C) (Oral) Resp 17 Ht 5' 9 (1.753 m) Wt 168 lb 8 oz (76.4 kg) SpO2 97% BMI 24.88 kg/m?? Intake/Output last 3 shifts: I/O last 3 completed shifts: In: 360 [P.O.:360] Out: 1300 Intake/Output this shift: I/O this shift: In: - Out: 900 Weight: Weight change: Physical Exam: General: Awake, alert. In mild distress HEENT: NCAT Lungs: CTA b/l Heart; S1 S2 normal Abdomen: non-distended Extremities: no edema Assessment/Plan: Hx of Liver transplantation CBD stent Bile leak (s/p perihepatic aspiration and drain placement) Continue daptomycin for 4 week course Repeat ERCP in 1 month Continue Bactrim, Prograf, Valcyte Monitor CMV Continue baby aspirin due to thrombocytosis Abdominal distention-f/u ascites survey VRE (vancomycin-resistant Enterococci) infection Continue Daptomycin, monitor CK Cytomegalovirus (CMV) viremia Continue Valcyte Follow CMV levels qMon Fluid overload Continue Lasix Trans daily weights Nausea & vomiting Ileus without SBO Continue regular diet Continue bowel regimen Zofran PRN Chronic bilateral low back pain without sciatica History of T11 and T12 compression fractures Consulted Neurosurgery - not an appropriate surgical candidate Pain control PT/OT Lumbar x-ray-no acute abnormalities Vertigo CT brain 10/07: negative MRI brain 10/24: negative for acute abnormality follow up with Vestibular Neurologist, Dr. Roach Moderate-sized loculated right hydropneumothorax. Medium-sized left pleural effusion RVP (+) parainfluenza 3 S/p left thoracentesis 10/14: 320 cc drained, culture NGTD Stable, currently on room air Anemia due to multiple mechanisms Monitor Severe protein-calorie malnutrition Continue regular diet Nutrition following GERD (gastroesophageal reflux disease) Continue pepcid BID DVT ppx; Heparin BID Betty Dias D.O. 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 Functional Bowel Incontinence Protein Calorie Malnutrition Gait Abnormality Ambulatory Dysfunction ADL Dysfunction Debility Cognitive Impairment Constipation Coordination Deficit Spasticity Skin Wound Neuropathic Pain Chronic Pain Balance Deficits PLAN: IM, ID, Nephro, Pulm, Cardio Consult Psychologist consultation and evaluation, Melatonin, Trazodone; remeron Biweekly immunosuppression labs, viral surveillance titre's weekly and biweekly IDT with liver transplant team ATB Daptomycin IV to complete 11/12 Prophylaxis: Acyclovir, Bactrim, Nystatin swish/swallow completes 09/30 Immunosuppression: prograf bid, cellcept bid, prednisone completed 09/30 Midodrine tid to keep BP normal Bowel Program: Miralax, Colace, Senna, Dulcolax Glycemic Control:Lispro Bladder Retraining and eval for high PVR and IC if >300, Flomax Nutritional Support - Adult Diet Regular; 7 Regular (Regular Texture); 0 Thin (All Liquids) GI prophylaxis: Protonix Fall Prevention Isolation: No active isolations Pain management: Acetaminophen, Oxycodone, Lidocaine, Robaxin DVT prophylaxis: Lovenox 11/05 add butrans 5mcg patch for chronic back pain Rehab Issues: Potential barriers to progress- complex medical issues, significant impairments. Rehab plan- PT/OT for ADLs, transfer, and gait training, ROM , strengthening and balance exercises,assistive device prescription. Rehab nursing for skin care, bowel and bladder care, administration of medication, patient and family education. Case management for care coordination and discharge.Therapy schedule will be 3 hrs/day x 5-6 days/week or 15 hrs/7 days in special situations. Weekly Interdisciplinary Rehab Team Meeting to address barriers to discharge and coordination of care. Subjective: 10 pt ROS negative for - chills, fatigue, fever, malaise, night sweats, sleep disturbance, or THIBODEAUX, CP, SOB, diarrhea Current Function: 11/06/2024: SM Functional Status PT Data (since 11/03/2024) Value Time User Bed Mobility Level of Assist Independent; Loss of Balance (P) 11/06/2024 9:15 AM Lukas Putnam, OT Bed Mobility Comment Pt performs sit to supine Independent w/o assist. (P) 11/06/2024 9:15 AM Lukas Putnam, OT Transfer to Wheelchair 11/05/2024 10:10 AM Jessica Kinsey, PT Transfer from Bed 11/05/2024 10:10 AM Jessica Kinsey PT Transfer Level of Assist Close Supervision 11/05/2024 10:10 AM Jessica Kinsey PT Ambulation Level of Assist Close Supervision; Minimal Assistance; Total Assistance/Dependent 11/05/2024 10:10 AM Jessica Kinsey, PT Distance (feet) 180 11/05/2024 10:10 AM Jessica Kinsey, PT Gait Analysis 180 ft x2 with RW and SBA to monitor balance. Pt demos kyphotic posture with mild unsteadiness. 32 ft with no device and Meena + [facility]. Emphasis on progressing toward patient goal of ambulating without device and challenging balance. Pt unsteady with downward gaze. Reviewed ongoing benefit of walker for balance, mitigating back pain, and energy conservation. 11/05/2024 10:10 AM Jessica Kinsey, PT WC Analysis PT dependently transported patient room <> therapy gym, utilizing this time to establish goals for session then re-assess pain levels 11/03/2024 3:23 PM Belinda Larsen, PT Objective: Physical Exam: VS: BP 111/72 Pulse 79 Temp 97 ??F (36.1 ??C) (Oral) Resp 17 Ht 5' 9 (1.753 m) Wt 168 lb8 oz (76.4 kg) SpO2 97% BMI 24.88 kg/m?? General: NAD CV: No c/c/e Pulm: No audible wheezing or stridor Abdomen: soft, non-tender, No g/r/r Extremities: Full ROM in all limbs, Tone normal in all limbs Wound Management: Wound Management Orders (From admission, onward) Start Ordered 11/01/24 1400 Wound Management: Use Associated Wounds location ([place]); Wound prevention Weekly Comments: Apply foam. Assess under foam with each skin assessment. Question Answer Comment Wound Location Use Associated Wounds location [place] Wound Management Wound prevention 10/31/24 1115 10/31/24 0933 Wound Management: Use Associated Wounds location ([facility] [place]OUN[place]/PREVENTION); Wound care per algorithm Per algorithm Question Answer Comment Wound Location Use Associated Wounds location [facility] [place]OUN[place]/PREVENTION Wound Management Wound care per algorithm 10/31/24 0932 Section GG CARE Scores - Current All Therapy Physical Therapy Car Transfer Car Transfer - CARE Score: 3 (11/04/241533) Walk 10 Feet Walk 10 Feet - CARE Score: 4 (11/04/241533) Walk 50 Feet with Two Turns Walk 50 Feet with Two Turns - CARE Score: 4 (11/04/241533) Walk 150 Feet Walk 150 Feet - CARE Score: 4 (11/04/241533) Walking 10 Feet on Uneven Surfaces Walking 10 Feet on Uneven Surfaces - CARE Score: 88 (11/04/241533) 1 Step (Curb) 1 Step (Curb) - CARE Score: 4 (11/04/241533) 4 Steps 4 Steps - CARE Score: 4 (11/04/241533) 12 Steps 12 Steps - CARE Score: 88 (11/04/241533) Picking Up Object Picking Up Object - CARE Score: 88 (11/04/241533) Wheel 50 Feet with Two Turns Wheel 50 Feet with Two Turns - CARE Score: 1 (11/04/241533) Wheel 150 Feet Wheel 150 Feet - CARE Score: 1 (11/04/241533) Occupational Therapy Eating Eating - CARE Score: 5 (11/04/241543) Oral Hygiene Oral Hygiene - CARE Score: 5 (11/04/241543) Toileting Hygiene Toileting Hygiene - CARE Score: 2 (11/04/241543) Shower/Bathe Self Shower/Bathe Self - CARE Score: 2 (11/04/241543) Upper Body Dressing Upper Body Dressing - CARE Score: 3 (11/04/241543) Lower Body Dressing Lower Body Dressing - CARE Score: 2 (11/04/241543) Putting On/Taking Off Footwear Putting On/Taking Off Footwear - CARE Score: 3 (11/04/241543) Roll Left and Right Roll Left and Right - CARE Score: 3 (11/04/24 154) Sit to Lying Sit to Lying - CARE Score: 4 (11/04/241543) Lying to Sitting on Side of Bed Lying to Sitting on Side of Bed - CARE Score: 4 (11/04/241543) Sit to Stand Sit to Stand - CARE Score: 4 (11/04/241543) Chair/Yhc-vq-Ialii Transfer Chair/[id number]-[id number] Transfer - CARE Score: 4 (11/04/241543) Toilet Transfer Toilet Transfer - CARE Score: 4 (11/04/241543) Speech Therapy Expression of Ideas and Wants Expression of Ideas and Wants: Without difficulty (10/31/24822) Understanding Verbal and Non-Verbal Content Understanding Verbal and Non-Verbal Content: Understands (10/31/24822) BIMS Brief Interview for Mental Status (BIMS) Repetition of Three Words (First Attempt): 3 (10/31/24822) Temporal Orientation: Year: Correct (10/31/24822) Temporal Orientation: Month: Accurate within 5 days (10/31/24822) Temporal Orientation: Day: Correct (10/31/24822) Recall: Sock : Yes, no cue required (10/31/24822) Recall: Blue : Yes, no cue required (10/31/24822) Recall: Bed : Yes, after cueing ( a piece of furniture ) (10/31/24822) BIMS Summary Score: 14 (10/31/24822) Memory/Recall Ability Labs: Imaging: US DOPPLER COMPLETE Result Date: 10/29/2024 * * *Final Report* * * DATE OF EXAM: Oct 29 2024 3:39PM [facility] 1033 - US DOPPLER COMPLETE / PROCEDURE REASON: Liver transplant * * * * Physician Interpretation * * * * EXAMINATION:LIVER VASCULAR ULTRASOUND WITH DOPPLER IMAGING CLINICAL HISTORY: 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 Images were obtained and stored in a permanent archive. MQ: USLV_1 COMPARISON:CT 10/24/2024, ultrasound 10/19/2024. RESULT: Sonographic Findings: Pancreas: Normal sonographic appearance. Portions obscured: tail Liver: Echotexture: Normal, homogeneous. Echogenicity: Normal Surface contour: Smooth Lesions: None. Biliary: No intrahepatic biliary duct dilation. Stable pneumobilia. CBD: 0.8 cm at the hilum. Gallbladder: Prior cholecystectomy. Gallbladder fossa partially obscured with drain in place. Right Kidney: No hydronephrosis. Spleen: Craniocaudal length 9.4 cm, normal. There are no splenic lesions. Other: Moderate volume loculated ascites, increased from prior ultrasound 10/19/2024 HEPATIC VASCULATURE: PORTAL SYSTEM: -Splenic Vein: Patent with antegrade flow (towards the liver). -Main PV: Patent with phasic antegrade flow (towards liver). 44-58 cm/sec. [id number] cm/sec. -Right anterior PV: Patent with phasic antegrade flow (towards liver). 25.5 cm/sec. Pr eviously 30 cm/sec -Right posterior PV: Patent with phasic antegrade flow (towards liver). 30 cm/sec. Previously 32 cm/sec -Left PV: Patent with phasic antegrade flow (towards liver). 19 cm/sec. Previously 26 cm/sec HEPATIC ARTERIES: - Main THIBODEAUX: Normal waveform PSV: 51-57 cm/sec. RI: 0.74-0.75. Previ ously 70-84 cm/sec. RI: 0.76-0.80 - Right anterior THIBODEAUX: Normal waveform PSV: 59 cm/sec. RI: 0.68. Previously 66 cm/sec. RI: 0.72 - Right posterior THIBODEAUX: Normal waveform PSV: 81 cm/sec. RI: 0.74. Previously 66 cm/sec. RI: 0.77 - Left THIBODEAUX: Normal waveform PSV: 60 cm/sec. RI: 0.70. Previously 73 cm/sec. RI: 0.77 HEPATIC VEINS: -Left: Patent with triphasic waveform. -Middle: Patent with triphasic waveform. -Right: Patent with triphasic waveform. IVC: Patent with normal, phasic wave form. IMPRESSION: Patent hepatic vasculature with appropriately directed flow. Mildly increased multiloculated ascites. Stripper Apprentice: [facility] Transcribe Date/Time: Oct 29 2024 3:46P Dictated by : MARIO YU MD This examination was interpreted and the report reviewed and electronically signed by: AMARILIS ADAMSON MD on Oct 29 2024 4:11PM EST [facility] LIVER VASCULAR TRANSPLANT () Result Date: 10/29/2024 * * *Final Report* * * DATE OF EXAM: Oct 29 2024 3:00PM Sacha Montesinos85 - [facility] LIVER VASCULAR TRANSPLANT/ PROCEDURE REASON: Liver transplant * * * * Physician Interpretation * * * *EXAMINATION: LIVER VASCULAR ULTRASOUND WITH DOPPLER IMAGING CLINICAL HISTORY: 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 Images were obtained and stored in a permanent archive. MQ: USLV_1 COMPARISON: CT 10/24/2024, ultrasound 10/19/2024. RESULT: Sonographic Findings: Pancreas: Normal sonographic appearance. Portions obscured: tail Liver: Echotexture: Normal, homogeneous. Echogenicity: Normal Surface contour: Smooth Lesions: None. Biliary: No intrahepatic biliary duct dilation. Stable pneumobilia. CBD: 0.8 cm at the hilum. Gallbladder: Prior cholecystectomy. Gallbladder fossa partially obscured with drain in place. Right Kidney: No hydronephrosis. Spleen: Craniocaudal length 9.4cm, normal. There are no splenic lesions. Other: Moderate volume loculated ascites, increased from p rior ultrasound 10/19/2024 HEPATIC VASCULATURE: PORTAL SYSTEM: -Splenic Vein: Patent with antegradeflow (towards the liver). -Main PV: Patent with phasic antegrade flow (towards liver). 44-58 cm/sec. Previously 38-53 cm/sec. -Right anterior PV: Patent with phasic antegrade flow (towards liver). 25.5 cm/sec. Previously 30 cm/sec -Right posterior PV: Patent with phasic antegrade flow (towards liver). 30 cm/sec. Previously 32 cm/sec -Left PV: Patent with phasic antegrade flow (towards liver). 19 cm/sec. Previously 26 cm/sec HEPATIC ARTERIES: - Main THIBODEAUX: Normal waveform PSV: 51-57 cm/sec. RI: 0.74-0.75. Previously 70-84 cm/sec. RI: 0.76-0.80 - Right anterior THIBODEAUX: Normal waveform PSV: 59 cm/sec. RI: 0.68. Previously 66 cm/sec. RI: 0.72 - Right posterior THIBODEAUX: Normal waveform PSV: 81 cm/sec. RI: 0.74. Previously 66 cm/sec. RI: 0.77 - Left THIBODEAUX: Normal waveform PSV: 60 cm/sec. RI: 0.70. Previously 73 cm/sec. RI: 0.77 HEPATIC VEINS: -Left: Patent with triphasic waveform. -Middle: Patent with triphasic waveform. -Right: Patent with triphasic waveform. IVC: Patent with normal, phasic wave form. IMPRESSION: Patent hepatic vasculature with appropriately directed flow. Mildly increased multiloculated ascites. Stripper Apprentice: [facility] Transcribe Date/Time: Oct 29 2024 3:46P Dictated by : MARIO YU MD This examination was interpreted and the report reviewed and electronically signed by: AMARILIS ADAMSON MD on Oct 29 2024 4:11PM EST MRI BRAIN WO IVCON Result Date: 10/24/2024 * * *Final Report* * * DATE OF EXAM: Oct 24 2024 7:06PM [facility] 0294 - MRI BRAIN WO IVCON / PROCEDURE REASON: Dizziness, non-specific * * * * Physician Interpretation * * * * EXAMINATION: MRI BRAIN WO IVCON CLINICAL HISTORY: Dizziness TECHNIQUE: Routine noncontrast MRI protocol including diffusion images. MQ: [id number]_2 COMPARISON: Head CT 10/07/2024 RESULT: Acute Change: There is no evidence of restricted diffusion to suggest an acute infarct. Hemorrhage: No evidence of prior parenchymal hemorrhage on the susceptibility weighted images. Mass Lesion/ Mass Effect: No evidence of an intracranial mass or extra-axial fluid collection. No mass effect. Chronic Change: Extensive patchy confluent T2 FLAIR hyperintense lesions are present throughout the bilateral supratentorial brainand alejandra compatible with sequela of chronic small vessel disease. Moderate diffuse brain volume loss. Ventricles: No evidence of hydrocephalus. Skull Base: Hypothalamic and pituitary region are grossly normal. Craniocervical junction is normal. No significant marrow replacement process. Vasculature: Major intracranial arterial structures, and dural venous sinuses show typical flow void, suggesting patency by spin echo criteria. Other: The visualized paranasal sinuses and mastoid air cells are cl ear. The orbits and extracranial soft tissues are unremarkable. IMPRESSION: No evidence of acute intracranial abnormality. Extensive patchy confluent T2 FLAIR hyperintense lesions are present throughout the bilateral supratentorial brain and alejandra compatible with sequela of chronic small vessel disease. Stripper Apprentice: [facility] Transcribe Date/Time: Oct 24 2024 7:06P Dictated by : JASON ZURITA MD This examination was interpreted and the report reviewed and electronically signed by: JASON ZURITA MD on Oct 24 2024 7:10PM EST CT ABD/PEL W IVCON Result Date: 10/24/2024 * * *Final Report* * * DATE OF EXAM: Oct 24 2024 6:28PM [facility] 0530 - CT ABD/PEL W IVCON / PROCEDURE REASON: Abdominal pain, acute, nonlocalized * * * * Physician Interpretation * * * * EXAMINATION: CT ABDOMEN AND PELVIS WITH IV CONTRAST CLINICAL HISTORY: 69-year-old man with a history of liver transplant on 09/09/2024, now with vomiting and abdominal pain/distention TECHNIQUE: CT of the abdomen and pelvis was performed using standard technique, scanning from just above the dome of the diaphragm to the symphysis pubis. MQ: CTAP_3 Contrast: Central IV: 100 ml of Omnipaque 350: ml of CT Radiation dose: Integrated Dose-length product (DLP) for this visit = 402 mGy*cm. CT Dose Reduction Employed: mAs-kVp adjusted based on patient size-age COMPARISON: 10/16/2024 and 10/18/2024 RESULT: Liver: Liver transplant. Mildly decreasing conspicuity and size of ill-defined low-attenuation lesion in the right hepatic lobe (i.e. 3:22), likely resolving infarction/infection. Biliary: No bile duct dilation. Common bile duct stent in place with expected pneumobilia. Cholecystectomy. Residual 4.1 x 2.0 cm collection in the gallbladder fossa (3:45), previously measuring 3.9 x 2.8 cm when measured similarly. Previously well-positioned drain within this collection seen on CT 10/18/2024, hasbeen slightly retracted in the interval, with the pigtail now uncurled, with several of the sideholes now within the liver parenchyma. Spleen: No mass. No splenomegaly. Pancreas: No mass or duct dilation. Adrenals: No mass. Kidneys: No mass, calculus or hydronephrosis. GI tract: A single loop of jejunum in the left upper quadrant measures up to 5 cm, without transition point, and enteric contrast reaching the terminal ileum/cecum.. Colonic diverticulosis, without acute diverticulitis. NG/OG tube terminating at the gastric body, sidehole subdiaphragmatic. Lymph nodes: No abdominal or pelvic lymphadenopathy. Mesentery/Peritoneum: Moderate volume ascites, slightly increased since 10/18/2024. Mild diffuse peritoneal thickening/enhancement. No loculated fluid collection otherwise. Retroperitoneum: No mass. Vasculature: - Abdominal aorta and iliac arteries: Atherosclerotic calcifications without aneurysm. - Celiac and SMA: Patent without stenosis. - Portal venous system (SMV, splenic vein, portal vein and branches): Patent. - Hepatic veins: Patent. Pelvis: No mass or fluid collection. Right inguinal hernia containing ascitic fluid. Bones/Soft Tissues: Severe compression deformities of T12 and L1, unchanged. Diffuse body wall edema. Lower thorax: Moderate left pleural effusion. Small right loculated hydropneumothorax, unchanged. Bibasilar atelectasis. Localizer images: No additional findings. IMPRESSION: Further mild interval decrease in size of gallbladder fossa collection. Of note, the previously well-positioned percutaneous drain is now slightly retracted, with a few of the sideholes now within the hepatic parenchyma. Slightly increased moderate volume ascites, with new peritoneal thi ckening/enhancement, suggestive of peritonitis, perhaps bile peritonitis given somewhat malpositioned percutaneous drain within the known biliary leak. Stripper Apprentice: PSCB Transcribe Date/Time: Oct 24 2024 6:39P Dictated by : MIKE OATES MD This examination was interpreted and the report reviewed and electronically signed by: MIKE OATES MD on Oct 24 2024 6:50PM EST IR VASCULAR ACCESS TEAM PICC INSERTION RADIO Result Date: 10/24/2024 Eileen Hernnadez RN 10/24/2024 11:49 AM PICC NURSE INSERTION NOTE DATE OF PROCEDURE: October 24, 2024 TIME OF PROCEDURE: 1100 ORDERING PHYSICIAN: Brandi Alarcon INFORMED CONSENT: Obtained per hospital policy. INDICATION FOR LINE PLACEMENT: COPAT CONDITION OF LINE PLACEMENT: Sterile PRIMARY PROCEDURALIST: Ceci Beauchamp RN MARKETING DESIGNER: Lili Hernandez RN PRE-PROCEDURE REVIEW ALLERGIES No Known Allergies Known History of Upper Venous Thrombosis: No Known History of Permanent Pacemaker or Automated Implanted Cardiac Device: No Previous Breast Surgery of Lymph Node Dissection: No Estimated Glomerular Filtration Rate Date Value Ref Range Status 10/24/2024 95 >=60 mL/min/1.73m Final Comment: Estimated Glomerular Filtration Rate (eGFR) is calculated using the 2020 CKD-EPI creatinine equation. This equation utilizes serum creatinine, sex, and age as parameters. The creatinine assay has traceable calibration to isotope dilution-mass spectrometry. Refer to KDIGO guidelines for clinical interpretation. In patients with unstable renal function, e.g. those with acute kidney injury, the eGFR may not accurately reflect actual GFR. eGFR- Date Value Ref Range Status 10/17/2016 >60 Final History of Renal Disease: CKD, GFR 92 Ultrasound Assessment Complete: Yes PROCEDURE NARRATIVE SAFE PRACTICE Hand Hygiene per Hospital Policy: Yes Skin Preparation Unit Dose Applicator Used: Chloraprep (CHG + alcohol), allowed to dry. Procedure Surface Cleansed with Antimicrobial Wipes: Yes BarriersUsed by Proceduralist and all Assisting Personnel: Yes UNIVERSAL PROTOCOL / SAFETY CHECKLIST Procedure to be Performed: peripherally inserted central catheter Sign In: A Moment of CARE was completed.Appropriate PPE (Personal Protective Equipment) worn by all providers involved with the procedure. Special equipment not required. Patient/Surrogate Stated/Verified: Patient name, Date of , Relevant allergies, and The intended procedure Time Out: Relevant labs, photos, and/or imaging studies have been reviewed. Intended patient and procedure match the source document(s) (e.g. consent, H&P, associated studies [imaging, pathology]) match the intended patient and procedure. Consent obtained and matches the intended procedure. Yes. Correct side/site has been marked and visible. Medications required for this procedure are verified. Fire risk assessed and is not applicable. Implants: arenot applicable. Sign Out: Specimens not collected. All instruments, equipment, possible retained foreign bodies are accounted for. Yes. The post-procedure plan of care has been communicated to the patient or surrogate and to patient's multidisciplinary team (including bedside nurse for hospitalizedpatients). CATHETER PLACEMENT Brand: OPHTHONIX Lot: [id number] Number of Lumens: 1 Type of PICC: Power Injectable PICC Lumen Size: 4 Bur[place]ian PLACEMENT TECHNIQUE Lidocaine: Yes, Lidocaine 1% Volume 4 mL Subcutaneous Modified Seldinger Technique Used to Place Line via the Right Basilic Ultrasound Guidance: Yes Number of Attempts at Insertion: 2 Ensured control of guidewire during all aspects of the procedure: Yes Accounted for entire guidewire upon removal: Yes Internal Length: 39 cm External Length: 0 cm Trim Length: 39 cm Mid-Arm Circumference: 25 centimeters Post Insertion Pain Level Related to Proce dure: 0 Action Taken to Address Pain: None needed Verified Placement: Blood return and flushes withease and Tip location system or device indicates the tip is located in the SVC/CAJ. Line was Flushed with 20 mL normal saline Line Secured with: Securement device Sterile Dressing Applied and Dated: Yes Sterile Caps on all Ports Prior to Leaving Procedure Area: Yes, Disinfection caps applied SPECIMENS: None COMPLICATIONS: Patient with baseline nausea/vomiting upon arrival to room. Bedside RN at bedside to provide medication. Patient positioned for comfort. Patient Education Materials: Left at bedside [facility] Central Line Insertion checklist was utilized during this procedure. QUESTIONS or PROBLEMS: Page [phone] SIGNATURE: Eileen Hernandez RN PATIENT NAME: Charles Blandon DATE: 2024 TIME: 11:18 AM PAGER/CONTACT PHONE: XR ABDOMEN 1V SUPINE Result Date: 10/24/2024 * * *Final Report* * * DATE OF EXAM: Oct 24 2024 5:36AM [facility] 5289 - XR ABDOMEN 1V SUPINE / PROCEDURE REASON: Nausea/Vomiting * * * * Physician Interpretation * * * * ABDOMEN, 1 VIEW 10/24/2024 CLINICAL INFORMATION: Nausea/Vomiting. TECHNIQUE: Supine frontal view, 1 image(s) COMPARISON: 10/19/2024 RESULT: See impression. IMPRESSION: Lines, tubes, and devices: Right upper quadrant TIPS, cholecystostomy tube, and surgical clips. Bowel: Gastric gaseous distention. Scattered gas-filled nondilated small bowel and colon. 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 Images were obtained and stored in a permanent archive. MQ: USLV_1 COMPARISON: CT 10/18/2024, liver ultrasound 10/08/2024 RESULT: Sonographic Findings: Pancreas: Normal sonographic appearance. Portions obscured: tail Liver: Echotexture: Normal, homogeneous. Echogenicity: Normal Surface contour: Smooth Lesions: None. Biliary: No intrahepatic biliary duct dilation. Pneumobilia, stable. CBD: 0.7 cm at the hilum. CBD stent present. Gallbladder: Absent Right Kidney: No hydronephrosis. Spleen: Craniocaudal length 9.3 cm, normal. There are no splenic lesions. Other: Small volume loculated abdominal ascites. HEPATIC VASCULATURE: PORTAL SYSTEM: - Splenic Vein: Patent with antegrade flow (towards the liver). -Main PV: Patent with phasic antegrade flow (towards liver). 38-53 cm/sec -Right anterior PV: Patent with phasic antegrade flow (towards liver). 38 cm/sec -Right posterior PV: Patent with phasic antegrade flow (towards liver). 32 cm/sec -Left PV: Patent with phasic antegrade flow (towards liver). 26 cm/sec HEPATIC ARTERIES: - Main THIBODEAUX: Normal waveform PSV: 70-84 cm/sec. RI: 0.76-0.8 - Right anterior THIBODEAUX: Normal waveform PSV: 66 cm/sec. RI: 0.72 - Right posterior THIBODEAUX: Normal waveform PSV: 66 cm/sec. RI: 0.77 - Left THIBODEAUX: Normal waveform PSV: 73 cm/sec. RI: 0.77 HEPATIC VEINS: -Left: Patent with triphasic waveform. -Middle: Patent with triphasic waveform. -Right: Patent with triphasic waveform. IVC: Patent with normal, phasic wave form. IMPRESSION: Patent hepatic vasculature with appropriately directed flow. 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 Small volume loculated ascites. No splenomegaly. Stable pneumobilia Stripper Apprentice: PSC[facility] Transcribe Date/Time: Oct 19 2024 4:18P Dictated by : STEWART BROUSSARD MD This examination was interpreted and the report reviewed and electronically signed by: AKIKO PHAN MD on Oct 19 2024 4:29PM EST US ABD LIVER VASCULAR TRANSPLANT (MC) Result Date: 10/19/2024 * * *Final Report* * * DATE OF EXAM: Oct 19 2024 3:55PM [facility] 0685 - US ABD LIVER VASCULAR TRANSPLANT / PROCEDURE REASON: Liver transplant * * * * Physician Interpretation * * * *EXAMINATION: LIVER VASCULAR ULTRASOUND WITH DOPPLER IMAGING CLINICAL HISTORY: 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 Images were obtained and stored in a permanent archive. MQ: USLV_1COMPARISON: CT 10/18/2024, liver ultrasound 10/08/2024 RESULT: Sonographic Findings: Pancreas: Normal sonographic appearance. Portions obscured: tail Liver: Echotexture: Normal, homogeneous. Echogenicity: Normal Surface contour: Smooth Lesions: None. Biliary: No intrahepatic biliary duct dilation. Pneumobilia, stable. CBD: 0.7 cm at the hilum. CBD stent present. Gallbladder: Absent RightKidney: No hydronephrosis. Spleen: Craniocaudal length 9.3 cm, normal. There are no splenic lesions. Other: Small volume loculated abdominal ascites. HEPATIC VASCULATURE: PORTAL SYSTEM: - Splenic Vein: Patent with antegrade flow (towards the liver). -Main PV: Patent with phasic antegrade flow (towards liver). 38-53 cm/sec -Right anterior PV: Patent with phasic antegrade flow (towards liver). 38 cm/sec -Right posterior PV: Patent with phasic antegrade flow (towards liver). 32 cm/sec -Left PV: Dunlap nt with phasic antegrade flow (towards liver). 26 cm/sec HEPATIC ARTERIES: - Main THIBODEAUX: Normal waveform PSV: 70-84 cm/sec. RI: 0.76-0.8 - Right anterior THIBODEAUX: Normal waveform PSV: 66 cm/sec. RI: 0.72 - Right posterior THIBODEAUX: Normal waveform PSV: 66 cm/sec. RI: 0.77 - Left THIBODEAUX: Normal waveform PSV: 73 cm/sec. RI: 0.77 HEPATIC VEINS: -Left: Patent with triphasic waveform. -Middle: Patent with triphasic waveform. -Right: Patent with triphasic waveform. IVC: Patent with normal, phasic wave form. IMPRESSION: Patent hepatic vasculature with appropriately directed flow. 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 Small volume loculated ascites. No splenomegaly. Stable pneumobilia Stripper Apprentice: SRINI Transcribe Date/Time: Oct 19 2024 4:18P Dictated by : STEWART BROUSSARD MD This examination was interpreted and the report reviewed and electronically signed by: AKIKO PHAN MD on Oct 19 2024 4:29PM EST XR ABDOMEN 1V SUPINE Result Date: 10/19/2024 * * *Final Report* * * DATE OF EXAM: Oct 19 2024 2:22PM [facility] 5289 - XR ABDOMEN 1V SUPINE / PROCEDURE REASON: Abdominal pain * * * * Physician Interpretation * * * * EXAM: KUB ABDOMEN. CLINICAL INFORMATION: Abdominal pain TECHNIQUE: Supine abdomen, 2 image(s) COMPARISON: 10/07/2024, CT dated 10/18/2024 RESULT: See Impression. IMPRESSION: Support lines and tubes: RIGHT mid abdominal catheter present. CBD stent present. Bowelgas pattern: Mildly dilated colon with the transverse colon measuring up to 6.2 cm. This is likely ileus. No significant small bowel dilatation. Calcifications: RIGHT upper quadrant surgical clips. Tr anscriptionist: SRINI Transcribe Date/Time: Oct 19 2024 3:20P Dictated by : AKIKO PHAN MD This examination was interpreted and the report reviewed and electronically signed by: AKIKO PHAN MD onOct 19 2024 3:24PM EST CT ABDOMEN WO IVCON Result Date: 10/18/2024 * * *Final Report* * * DATE OF EXAM: Oct 18 2024 3:27PM [facility] 0534 - CT ABDOMEN WO IVCON / PROCEDURE REASON: Post-operative / post-procedure assessment, symptomatic * * * * Physician Interpretation * * * * EXAMINATION: CT ABDOMEN WITHOUT IV CONTRAST CLINICAL HISTORY: Abdominal pain, post drain placement.Patient is status post liver transplant. Status post drainage of RIGHT hydrothorax on 09/09/2024 TECHNIQUE: Non-IV contrast imaging of the abdomen was performed using standard technique, scanning from just above the dome of the diaphragm to the iliac crest. Unenhanced imaging is limited for the evaluation of some intra-abdominal pathology. MQ: CTAbdWO_3 Contrast: IV: None Oral: 300 ml of Omni 90310-24bq diluted with water CT Radiation dose: Integrated Dose-length product (DLP) for this visit =208 mGy*cm. CT Dose Reduction Employed: Automated exposure control (AEC) COMPARISON: 10/16/2024 RESU LT: Liver: Unenhanced liver allograft is unremarkable. Previously seen geographic area of low-attenuation in segment 4/8 is less well seen without IV contrast, but is overall stable. No definite new hepatic focal lesions on this study. Biliary: Pneumobilia. Biliary stent in place. There has been interval placement of a percutaneous drainage catheter with decompression of the gallbladder fossa collection. Currently the collection measures 2.6 x 1.4 cm (3:46), previously 5.2 x 3.8 cm. Spleen: No splenomegaly. Pancreas: Unremarkable. Adrenals: No mass. Kidneys: Previously administered excreted co ntrast in both collecting systems. No hydronephrosis. GI Tract: No bowel dilation. Lymph Nodes: No lymphadenopathy. Mesentery/peritoneum: Moderate abdominal ascites, similar in volume as compared to prior study. No new focal drainable fluid collections. Retroperitoneum: No mass. Vasculature: No aortic aneurysm. Atherosclerotic calcifications. Patency of hepatic vasculature cannot be established on this unenhanced study. Bones/Soft Tissues: Degenerative changes. Remote healed rib fractures. Lower thorax: Essentially stable RIGHT hydropneumothorax and moderate LEFT pleural effusion. Localizer images: No additional findings. IMPRESSION: Interval placement of a percutaneous drainage catheter with decompression of the gallbladder fossa collection. Moderate volume abdominal ascites, similar to prior study. Essentially stable RIGHT hydropneumothorax and moderate LEFT pleural effusion. Stripper Apprentice: SRINI Transcribe Date/Time: Oct 18 2024 4:19P Dictated by : AKIKO PHAN MD This examination was interpreted and the report reviewed and electronically signed by: AKIKO PHAN MD on Oct 18 2024 4:28PM EST US IMAGING GUIDED DRAIN PLACEMENT PERITONEAL/RETROPERITD Result Date: 10/17/2024 * * *Final Report* * * DATE OF EXAM: Oct 17 2024 5:03PM U 1170 - US LEANNA BRADLEY PERIT/RETROP FL BI / PROCEDURE REASON: Liver transplant * * * * Physician Interpretation * * * * PROCEDURE PERFORMED: ULTRASOUND GUIDED DRAIN PLACEMENT PRE-PROCEDURE DIAGNOSIS: Abdominal fluid collection(s) POST- PROCEDURE DIAGNOSIS: Same as pre-procedure diagnosis INDICATION FOR PROCEDURE: gallbladder fossa collection RELEVANT PRIOR STUDIES: CT 10/16/2024 STAFF RADIOLOGIST: Dr. Julio MARKETING DESIGNER(S):Dr. Boss CONSENT: The risks, benefits, treatment options, potential complications and personnelinvolved were discussed with the patient. All questions were answered and consent was obtained. The patient indicated willingness to proceed. The staff physician personally verified consent. TIME OUT: A time out was performed immediately prior to procedure start with the nursing, anesthesia and interventional team, correctly identifying the patient name, date of , procedure, anatomy (including marking of site and side), patient position, procedure consent form, relevant diagnostic and radiology test results, antibiotic administration, safety precautions, and procedure-specific equipment needs. RESULT: PROCEDURE: After performing the time out, the abdominal fluid collection was localized with ultrasound, images were obtained and archived. The right upper quadrant was prepped and draped in the usual sterile fashion. Under ultrasound guidance, an 18 gauge trochar needle was advanced into the collection using a transhepatic approach. Then, a guide wire was inserted and the tract was serially dilated to 9 [place]ian. A 10 [place]undian locking pigtail catheter was then inserted. Its position was confirmed and then it was locked. A sample was aspirated. The catheter was sutured to the skin with monofilament suture and attached to a J-P bulb drain. The procedure was performed by the: attending radiologist, with an insurance account assistant. The attending radiologist performed the following procedural activities: Supervised entire procedure ANESTHESIA/SEDATION: Conscious sedation: Versed: 1.0 mg IV Fentanyl: 50 mcg IV Local anesthesia: Lidocaine 1%: 17 cc Vital signs were monitored by the nurse. STARTTIME/TIMEOUT TIME: 16:35 END TIME: 17:00 INTRA- SERVICE (SEDATION) TIME: 30 minutes PATIENT MONITORING: The staff physician personally supervised and directed an independent trained observer who assisted in monitoring the patient?s level of consciousness and physiological status throughout the procedure. SIGNIFICANT COMPLICATIONS: None MINOR COMPLICATIONS: None SIGN-OUT DISCUSSION: Completed ESTIMATED BLOOD LOSS: Trace SPECIMENS: 40 cc of cloudy bilious fluid aspirated and samples sent to microbiology . Sample also sent for bilirubin and cell count. DRAIN(S): 10 [place]ian pigtail drain IMPRESSION: ULTRASOUND GUIDED TRANSHEPATIC DRAIN PLACEMENT IN GALLBLADDER FOSSA COLLECTION. Stripper Apprentice: SRINI Transcribe Date/Time: Oct 17 2024 5:16P Dictated by : AMARILIS BOSS MD This examination was interpreted and the report reviewed and electronically signed by: EVERTON JULIO MD onOct 17 2024 5:24PM EST ECHO Result Date: 10/17/2024 Echocardiography Report: Transthoracic Echo Main [facility] Bedside Date of service: 10/17/2024 11:11:17 AM ANALYST Ordering physician: BRANDI ALARCON Exam indication: Shortness of Breath Technologist: Ria Weaver Interpreting physician: Lena Whalen MD PATIENT: Name: MR. CHARLES BLANDON : 1955 Age: 69 years Gender: M History of hypertension and chronic kidney disease. Previous cardiovascular interventions: Liver transplant Primary rhythm: sinus. Height: 175.30 cm BSA: 1.82 m??? Weight: 67.80 kg BMI: 22.1 kg/m??? Heart rate 78 bpm Blood pressure 136/79 mmHg Technically difficult exam due to body habitus and suboptimal positioning. Color Doppler was utilized to interrogate the cardiac valves assessed and spectral Doppler was utilized to determine the flowvelocities and pressure gradients reported in this exam. MEASUREMENTS: Value Indexed Normal LV ID (diastole) 4.8 cm (2D) 2.62 cm/m??? LV ID (systole) 3.1 cm (2D) 1.73 cm/m??? IVS, leaflet tips 1.1 cm (2D) Posterior wall thickness 1.1 cm (2D) Left ventricular mass 190 g (2D) 105 g/m??? Ejection Fraction 55 % (visual est.) EF > 52 FINDINGS: LEFT VENTRICLE The left ventricle is normal in size. Left ventricular systolic function is normal. Left ventricular diastolic function was not evaluated due to limited. Mitral annular lateral E/e': 5.7. Mitral annular septal E/e': 9.3. Wall Motion: All scored segments are normal. RIGHT VENTRICLE Estimated right ventricular systolic pressure is not reported due to an insufficient tricuspid regurgitation signal. Estimated right atrial pressure is 8 mmHg based on IVC assessment. RIGHT ATRIUM Inferior Vena Cava: The inferior vena cava appears normal measuring 1.5 cm. The vessel decreases less than 50 percent with inspiration. MITRAL VALVE There is tr waldo mitral valve regurgitation. There is mild thickening. The pressure half time is 54 msec. The peak mitral E/A ratio is 0.99. The average mitral E/e' ratio is 7.5. The mitral flow deceleration timeis 187 msec. TRICUSPID VALVE There is trace tricuspid valve regurgitation. There is no thickening. AORTIC VALVE There is no aortic valve regurgitation. Tricuspid aortic valve. There is mild thickening. There is mild calcification. The peak gradient is 6 mmHg (peak velocity = 118.1 cm/s). PULMONIC VALVE The pulmonic valve was not seen or not interrogated. There is trace pulmonic valve regurgitation. PERICARDIUM There is no pericardial effusion. There is a right pleural effusion. There is an epica rdial fat pad. CONCLUSIONS: - Technically difficult exam due to body habitus and suboptimal positioning. - Exam indication: Shortness of Breath - The left ventricle is normal in size. Left ventricular systolic function is normal. EF = 55 ??? 5% (visual est.) - Aortic sclerosis. - Exam was compared with the prior CC echocardiographic exam performed on 09/21/2024. Right pleural effusion seen. * * * Final * * * [facility] [employer] [facility] : [id number]^[employer]^SI^SUID CT ABD/PEL W IVCON Result Date: 10/16/2024 * * *Final Report* * * DATE OF EXAM: Oct 16 2024 12:48PM [facility] 0530 - CT ABD/PEL W IVCON / PROCEDURE REASON: Abnormal ERCP * * * * Physician Interpretation * * * * EXAMINATION: CTABDOMEN AND PELVIS WITH IV CONTRAST CLINICAL HISTORY: EtOH cirrhosis/HCC, s/p DCD-OLT and drainage of right hydrothorax on 09/09/2024. Admitted for worsening abdominal distention, ascites. Concern forpossible portal vein thrombus noncontrast CT. Underwent ERCP 10/15/2024 which demonstrated postoperative stricture, possible contained bile leak from the cystic duct, biliary pus/stones. TECHNIQUE: CT of the abdomen and pelvis was performed using standard technique, scanning from just above the dome of the diaphragm to the symphysis pubis. MQ: CTAP_3 Contrast: IV: 100 ml of Omnipaque 350 Oral: 300 ml of Omni 350 10-25ml diluted with water CT Radiation dose: Integrated Dose-length product (DLP) for this visit = 639 mGy*cm. CT Dose Reduction Employed: mAs-kVp adjusted based on patient size-age COMPARISON: CT abdomen/pelvis 10/07/2024 RESULT: Liver: * Liver transplant. Mild periportal edema. * Slight interval decreased size of geographic area of low-attenuation in segments 4/8 since 10/07/2024 counting for differences of technique. Possibly resolving infarct versus inflammation. No new hepaticlesions. Biliary: * Cholecystectomy. 5.2 x 3.8 cm collection in the gallbladder fossa (3:59) contain ing small amount of contrast, likely corresponding with leak identified on recent ERCP. * CBD stentin place. * No biliary duct dilation. Trace pneumobilia, presumably postoperative. Spleen: No mass.No splenomegaly. Pancreas: No mass or duct dilation. Adrenals: No mass. Kidneys: No mass, calculus or hydronephrosis. GI tract: Few borderline and mildly dilated fluid and gas filled loops of small bowel without discrete transition point. No wall thickening. Diverticulosis. Lymph nodes: No abdominal or pelvic lymphadenopathy. Mesentery/Peritoneum: Moderate volume ascites. No drainable collections. Diffuse mesenteric edema. Retroperitoneum: No mass. Vasculature: - Abdominal aorta and iliac arteries: Atherosclerotic calcifications without aneurysm. - Celiac and SMA: Patent without stenosis. - Portal venous system (SMV, splenic vein, portal vein and branches): Patent. - Hepatic veins: Patent. - Other: Hepatic artery and anastomosis appears patent. Pelvis: Moderate ascites. No organized collections. No mass. Bones/Soft Tissues: Unchanged [id number] fractures. No acute osseous abnormalities. Ascites within right inguinal hernia. Diffuse bilateral edema. Lower thorax: Stable bilateral pleural effusions, partially loculated on the right with hydropneumothorax. Localizer images: No additional findings. IMPRESSION: 5.2 cm collection in the gallbladder fossa with small amount of contrast, likely contained bile leak. Stable to slightly decreased size of geographic low-attenuation in the right hepatic lobe, possibly inflammatory or evolving infarct. Moderate volume abdominopelvic ascites. Stable right hydropneumothorax and bilateral pleural effusions. Stripper Apprentice: SRINI Transcribe Date/Time: Oct 16 2024 1:06P Dictated by : JIM ANAYA MD This examination was interpreted and the report reviewed and electronically signed by: EVERTON JULIO MD on Oct 16 2024 2:07PM EST ERCP Result Date: 10/15/2024 Q3 Patient Name: Charles Blandon Procedure Date: 10/15/2024 3:44 PM Date of : 1955 Admit Type: Inpatient Age: 69 Gender: Male Note Status: Finalized Attending MD: Elizabeth Dixon MD, [id number] Procedure: ERCP Indications: Elevated alkaline phosphatase, Post liver transplant assessment Providers: Elizabeth Dixon MD, Bebo Barker MD (Fellow), Kathy Alberts MD (1st Assisting Doctor) Patient Profile: This is a 69 year old male. Refer to note in patient chart for documentation of history and physical. Referring Physician: Xuan Melendrez (Referring MD) Medicines: General Anesthesia Complications: No immediate complications. Requesting Provider: Procedure: Pre- Anesthesia Assessment: - Prior to the procedure, a History and Physical was performed, and patient medications and allergies were reviewed. The patient's tolerance of previous anesthesia was also reviewed. The risks and benefits of the procedure and the sedation options and risks were discussed with the patient. All questions were answered, and informed consent was obtained. Prior Anticoagulants: The patient has taken no anticoagulant or antiplatelet agents. ASA Grade Assessment: III - A patient with severe systemic disease. After reviewing the risks and benefits, the patient was deemed in satisfactory condition to undergo the procedure. After obtaining informed consent, the scope was passed under direct vision. Throughout the procedure, the patient's blood pressure, pulse, and oxygen saturations were monitored continuously. The Duodenoscope was introduced through the mouth, and advanced to the duodenum and used to inject contrast into the bile duct. The ERCP was accomplished without difficulty. The patient tolerated the procedure well. Moderate Sedation: General anesthesia was administered by the anesthesia team. Findings: A contestant coordinator film of the abdomen was obtained. Surgical clips, consistent with a previous cholecy stectomy and known liver transplant, were seen in the area of the right upper quadrant of the abdomen. The major papilla was adjacent to a diverticulum. The bile duct was deeply cannulated with the traction (standard) sphincterotome. Contrast was injected. I personally interpreted the bile duct images. Ductal flow of contrast was adequate. Image quality was excellent. Contrast extended to the main bile duct. Contrast extended to the bifurcation. Contrast extended to the hepatic ducts. The common hepatic duct contained filling defect(s) thought to be a stone and sludge. Extravasation of contrast originating from the donor cystic duct remnant was observed consistent with a leak that appeared contained. The recipient cystic duct remnant was normal. The common hepatic duct contained a single moderate stenosis 10 mm in length. Biliary sphincterotomy was made with a monofilament traction (standard) sphincterotome using ERBE electrocautery. There was no post-sphincterotomy bleeding. The biliary tree was swept with an 11.5 mm balloon starting at the bifurcation. Pus and debris was swept from the duct. Large stone proximal to the stenosis could not be removed. One 10 mm by 10 cm covered metal stent was placed 9 cm into the common bile duct. Bile flowed through the stent. The stent was in good position. Impression: - The major papilla was adjacent to a diverticulum. - Filling defects consistent with stones and sludge was seen on the cholangiogram. - A single moderate biliary stricture was found in the common hepatic duct. The stricture was post-surgical. - A bile leak was found eminating from the donor cystic duct remnant which appeared to be contained. - A biliary sphincterotomy was performed. - The biliary tree was swept and pus and debris were found. Large stone proximal tothe stenosis could not be removed. - One covered metal stent was placed into the common bile duct. Estimated Blood Loss: Estimated blood loss: none. Recommendation: - [facility]. - Resume previous diet. - Repeat ERCP in 1 month for stent removal and cholangioscopy with EHL. Procedure Code(s): --- Professional --- 67118, Endoscopic retrograde cholangiopancreatography (ERCP); with placement of endoscopic stent into biliary or pancreatic duct, including pre- and post-dilation and guide wire passage, when performed, including sphincterotomy, when performed, each stent [id number], Endoscopic retrograde cholangiopancreatography (ERCP); with removal of calculi/debris from biliary/pancreatic duct(s) 48294, Endoscopic catheterization of the biliary ductal system,radiological supervision and interpretation Diagnosis Code(s): --- Professional --- K91.89, Other postprocedural complications and disorders of digestive system K83.1, Obstruction of bile duct K83.9, Disease of biliary tract, unspecified R74.8, Abnormal levels of other serum enzymes Z09, Encounter for follow-up examination after completed treatment for conditions other than malignant neoplasm Z94.4, Liver transplant status R93.2, Abnormal findings on diagnostic imaging of liver and biliary tract CPT copyright 2020 [employer]. All rights reserved. Attending Participation: I was present and participated during the entire procedure, including non-david portions. Scope In: 4:11:32 PM Scope Out: 4:36:21 PM MD Elizabeth Bacon MD 10/15/2024 5:13:53 PM This report has been signed electronically by MD Kathy Reynolds MD Number of Addenda: 0 Note Initiated On: 10/15/2024 3:44 PM XR CHEST 1V FRONTAL PORT Result Date: 10/15/2024 * * *Final Report* * * DATE OF EXAM: Oct 14 2024 7:18PM [id number] [id number] - XR CHEST 1V FRONTAL PORT / PROCEDURE REASON: Post-operative/post-procedure assessment * * * * Physician Interpretation * * * * EXAMINATION: CHEST RADIOGRAPH (PORTABLE SINGLE VIEW AP) Exam Date/Time: 10/14/2024 7:18 PM Clinical History: Post-operative/post-procedure assessment MQ: XCPMC_6 Comparison: 1 day prior RESULT: Lines, tubes, and devices: The patient is rotated to the right. Lungs and pleura: Moderateright pleural effusion is noted, possibly redistributed. Also noted is small left pleural effusion.There is central pulmonary venous congestion without overt edema. Patchy opacities are noted at thelung bases, likely related to atelectasis. No definite pneumothorax is noted. Cardiomediastinal silhouette: Stable cardiomediastinal silhouette. Calcification of the aortic arch is noted with tortuosity/ectasia of the descending thoracic aorta. Other: . IMPRESSION: See result. Stripper Apprentice: [facility] Transcribe Date/Time: Oct 15 2024 7:37A Dictated by :BULMARO WINN MD This examination was interpreted and the report reviewed and electronically signed by: BULMARO WINN MD on Oct 15 2024 7:38AM EST XR CHEST 1V FRONTAL PORT Result Date: 10/11/2024 * * *Final Report* * * DATE OF EXAM: Oct 11 2024 11:23AM [facility] [id number] - XR CHEST 1V FRONTAL PORT / PROCEDURE REASON: Shortness of breath * * * * Physician Interpretation * * * * EXAMINATION: CHEST RADIOGRAPH (PORTABLE SINGLE VIEW AP) Exam Date/Time: 10/11/2024 11:23 AM Clinical History: Shortness of breath MQ: XCPMC_6 Comparison: 10/06/2024 RESULT: Lines, tubes, and devices: None.Lungs and pleura: A loculated medium-sized RIGHT related to atelectasis/consolidation adjacent lung. A trace LEFT pleural effusion is present with adjacent atelectasis. No substantial pneumothorax isidentified. Cardiomediastinal silhouette: The cardiomediastinal silhouette remains enlarged, unchanged. There are atherosclerotic calcifications in the thoracic aorta. Other: There are multiple remote right-sided rib fractures. IMPRESSION: See result Stripper Apprentice: SRINI Transcribe Date/Time: Oct 11 2024 11:40A Dictated by : PAWAN LUNA MD This examination was interpreted and the report reviewed and electronically signedby: PAWAN LUNA MD on Oct 11 2024 11:42AM EST CT CHEST WO IVCON Result Date: 10/08/2024 * * *Final Report* * * DATE OF EXAM: Oct 08 2024 1:05PM [facility] 0541 - CT CHEST WO IVCON / PROCEDURE REASON: Pneumonia, effusion or abscess suspected, xray done * * * * Physician Interpretation * * * * EXAMINATION: CHEST CT WITHOUT CONTRAST CLINICAL HISTORY: 69 year old male withPMHx EtOH cirrhosis/HCC, s/p DCD-OLT and drainage of right hydrothorax on 09/09/2024, now admitted with worsening shortness of breath. Technique: Spiral CT acquisition of the chest from the thoracic inlet to the upper abdomen without contrast. MQ: CTCWO_6 CT Radiation dose: Integrated Dose-length product (DLP) for this visit = 171 mGy*cm CT Dose Reduction Employed: Automated exposure control (AEC) Comparison: CT chest, 09/01/2024 RESULT: Limitations: None. Lines, tubes, and devices: None. Lung parenchyma , pleural spaces and airways: Interval development of a loculated moderate-sized right hydropneumothorax. The pneumothorax component and air-fluid levels are new although the volume of pleural effusion has decreased since the prior (to be correlated with any recent thoracentesis/pleural fluid drainage procedures). Increase in volume of low- attenuation, medium-sized left pleural effusion without any left pneumothorax. Interval reexpansion of previously collapsed portions of the right middle and lower lobes. Persistent subpleural atelectasis in the posterior right lower lobe. Subpleural curvilinear consolidative opacity in the right middle lobe is possibly related to rounded atelectasis (image 89, Agfa series 3). Mild peribronchial thickening and interlobular septal thickening in the right lung. Mild worsening of dependent atelectasis in the posterior left lung base. A 4 mm superior segment LLL nodule along the left major fissure is new and possibly represents atelectasis (image 36). Mild curvilinear atelectasis in the inferior lingula. The trachea and major bronchi are patent. There is luminal effacement of subsegmental bronchi in the bilateral lower lobes/posterior lung bases, right more than left. Lower neck, lymph nodes, and mediastinum: The imaged thyroid gland is unremarkable. No supraclavicular or axillary lymphadenopathy. Multiple subcentimeter and a few borderline enlarged mediastinal lymph nodes have increased in size compared to the previous CT. For example, an upper right paratracheal node which previously measured 4-5 mm in short axis now measures 9- 10 mm in short axis (image 41, Agfa series 4) and a lower right paratracheal lymph node which previously measured 5-6 mm in short axis now measures 10-11 mm in short axis (image 65, Agfa series 4). The upper thoracic esophagus is minimally patulous with an air-fluid level. The GE junction is collapsed.Heart, pericardium, and thoracic vessels: The aortic root appears mildly dilated although accurate measurement is limited given cardiac pulsation and noncontrast technique. Mild aortic root calcifications noted. The ascending thoracic aorta measures 3.7-3.8 cm in its mid segment, upper limits normal. The aortic arch and descending thoracic aorta are normal in caliber with mild atherosclerotic calc ifications. The main and central pulmonary arteries are normal in caliber. There are severe diffusecoronary calcifications with probable coronary artery stents although the present scan is not optimized for coronary assessment. The cardiac chambers are normal in size. Increase in volume of a smallpericardial effusion which now measures up to 10 mm anteriorly (image 128, Agfa series 4). Bones and soft tissues: No destructive bone lesion. Diffuse osteopenia with compression fracture/collapse ofthe T11 and T12 (counting from top). Mild loss of height in multiple lower thoracic vertebrae, suchas the T7 and T8. Remote fractures of multiple right ribs with callus formation (anterior third through sixth, anterolateral seventh, lateral eighth ribs). Remote fracture of the lateral left seventhand eighth ribs and posterior left 10th rib. Moderate bilateral gynecomastia. Mild bilateral flank edema. Upper abdomen: Postsurgical changes of liver transplant with upper abdominal ascites. Please review abdominal CT report from 10/07/2024 for details. Localizer images: No additional findings. IMPRESSION: Moderate-sized loculated right hydropneumothorax; the pneumothorax component is new while the pleural fluid as decreased in volume compared to the earlier CT from 09/01/2024. Correlate with history of recent thoracentesis or pleural drainage procedures. Interval increase in volume of a low-attenuation, medium-sized left pleural effusion. Improved aeration of previously atelectatic portions of the right lung with persistent atelectasis in the posterior right base and probable roundedatelectasis in the subpleural right middle lobe. Worsening atelectasis in the posterior left lung base. Superimposed pneumonia/aspiration within the atelectatic portions of the bilateral lung bases cannot be excluded. Asymmetric mild/smooth peribronchial and septal thickening in the right lung is suggestive of nonspecific perilymphatic/venous edema. Interval increase in size of a few borderline enlarged intrathoracic lymph nodes which are nonspecific, potentially reactive although follow-up is suggested. Interval development of a small anterior pericardial effusion. Diffuse osteopenia with collapsed compression of the T11 and T12 vertebrae, as well as multiple sequential bilateral rib fractures. Stripper Apprentice: SRINI Transcribe Date/Time: Oct 08 2024 1:26P Dictated by : RUPA COVINGTON MD This examination was interpreted and the report reviewed and electronically signed by: RUPA COVINGTON MD on Oct 08 2024 1:53PM EST XR ABDOMEN 1 VWS Result Date: 10/08/2024 * * *Final Report* * * DATE OF EXAM: Oct 07 2024 10:49AM [id number] - XR ABDOMEN 1V SUPINE / PROCEDURE REASON: ABD PAIN, FEVER, NO RECENT SURGERY * * * * Physician Interpretation * * * * Clinical Information: Abdominal pain, abdominal distention Supine views of the abdomen were obtained. Comparison: 10/06/2024 Gaseous distention of small bowel loops appears stable to mildly improved. No abnormal abdominal masses are identified. No pathologic calcifications. No acute bony abnormalities are seen. IMPRESSION: Stable to mildly improved gaseous distention of small bowel loops may indicate improving ileus or improving low grade/partial obstruction. Stripper Apprentice: [facility] Transcribe Date/Time: 2024 1:06P Dictated by : AMARILIS MACK MD This examination was interpreted and the report reviewed and electronically signed by: AMARILIS MACK MD on Oct 08 2024 1:08PM EST XR ABDOMEN 1V SUPINE Result Date: 10/08/2024 * * *Final Report* * * DATE OF EXAM: Oct 07 2024 10:49AM [id number] - XR ABDOMEN 1V SUPINE / PROCEDURE REASON: ABD PAIN, FEVER, NO RECENT SURGERY * * * * Physician Interpretation * * * * Clinical Information: Abdominal pain, abdominal distention Supine views of the abdomen were obtained. Comparison: 10/06/2024 Gaseous distention of small bowel loops appears stable to mildly improved. No abnormal abdominal masses are identified. No pathologic calcifications. No acute bony abnormalities are seen. IMPRESSION: Stable to mildly improved gaseous distention of small bowel loops may indicate improving ileus or improving low grade/partial obstruction. Stripper Apprentice: [facility] Transcribe Date/Time: 2024 1:06P Dictated by : AMARILIS MACK MD This examination was interpreted and the report reviewed and electronically signed by: AMARILIS MACK MD on Oct 08 2024 1:08PM EST US DOPPLER COMPLETE Result Date: 10/08/2024 * * *Final Report* * * DATE OF EXAM: Oct 08 2024 7:45AM U [id number] - US DOPPLER COMPLETE / PROCEDURE REASON: Liver transplant * * * * Physician Interpretation * * * * EXAMINATION:LIVER VASCULAR ULTRASOUND WITH DOPPLER IMAGING CLINICAL HISTORY: Old T5 2625 with concern for portal vein thrombosis on CT 10/07/2024 TECHNIQUE: Sonography of the liver with color and spectral Dopplerimaging of the hepatic vasculature was performed. Images were obtained and stored in a permanent archive. MQ: USLV_1 COMPARISON: CT 10/07/2024, liver vascular ultrasound 09/20/2024 RESULT: Sonographic Findings: Pancreas: Normal sonographic appearance. Portions obscured: tail Liver: Echotexture: Normal, homogeneous. Echogenicity: Similar heterogeneously hypoechoic parenchyma within the right hepatic dome, related to ischemia or operative handling. Surface contour: Smooth Lesions: None. Biliary: Nointrahepatic biliary duct dilation. CBD: 1.1 cm at the hilum. Circumferential wall thickening of the extrahepatic CBD containing debris. Gallbladder: Right Kidney: No hydronephrosis. Spleen: Craniocaudal length 11 cm, normal. There are no splenic lesions. Other: Moderate volume ascites. With the patient supine and the transducer oriented perpendicular to the abdominal wall, an X was marked on th e skin overlying the right lower quadrant. The following measurements were obtained: (1) Depth to enter the fluid collection: 2.0 cm (2) Depth to mid fluid collection: 4.1 cm 5.9 x 2.5 x 3.0 cm gallbladder fossa postoperative collection, mildly decreased from prior. HEPATIC VASCULATURE: PORTAL SYSTEM: - Splenic Vein: Patent with antegrade flow (towards the liver). -Main PV: Patent with phasic antegrade flow (towards liver). 57-68 cm/sec -Right anterior PV: Patent with phasic antegrade flow (towards liver). 33 cm/sec -Right posterior PV: Patent with phasic antegrade flow (towards liver). 28 cm/sec -Left PV: Patent with phasic antegrade flow (towards liver). 16 cm/sec HEPATIC ARTERIES: - Main THIBODEAUX: Normal waveform PSV: 66-68 cm/sec. RI: 0.78-0.82 - Right anterior THIBODEAUX: Normal waveform PSV: 45 cm/sec. RI: 0.73 - Right posterior THIBODEAUX: Normal waveform PSV: 61 cm/sec. RI: 0.73 - Left THIBODEAUX: Normal waveform PSV: 68 cm/sec. RI: 0.68 HEPATIC VEINS: -Left: Patent with triphasic waveform. -Middle: Patent with triphasic waveform. -Right: Patent with triphasic waveform. IVC: Patent with normal, phasic wave form. IMPRESSION: Patent hepatic vasculature with appropriately directed flow. CBD wall thickening containing debris. Recommend further evaluation with MR pancreas/biliary. Otherwise stable sonographic appearance of the transplant liver. Moderate volume ascites, marked in the right lower quadrant. ACTIONABLE RESULT: FOLLOW-UP Acuity: Actionable Findings: Pancreas/Biliary Routing Code: PB_1 Recommendation: MRI PANCREAS/BILIARY WO/W IV CONTRAST Time Frame: At the discretion of the clinical team. COMMUNICATION: Results will be communicated with the ordering provider via [employer]cario staff message or phone message by [facility] within 2 business days of report finalization. --END OF FINDING-- Stripper Apprentice: SRINI Transcribe Date/Time: Oct 08 2024 8:41A Dictated by : RAQUEL WILKES MD This examination was interpreted and the report reviewed and electronically signed by: RAQUEL WILKES MD on Oct 08 2024 9:38AM EST US ABD LIVER VASCULAR Result Date: 10/08/2024 * * *Final Report* * * DATE OF EXAM: Oct 08 2024 7:30AM U [id number] - US ABD LIVER VASCULAR / PROCEDURE REASON: Liver transplant * * * * Physician Interpretation * * * * EXAMINATION: LIVER VASCULAR ULTRASOUND WITH DOPPLER IMAGING CLINICAL HISTORY: Old T5 2625 with concern for portal vein thrombosis on CT 10/07/2024 TECHNIQUE: Sonography of the liver with color and spectral Doppler imaging of the hepatic vasculature was performed. Images were obtained and stored in a permanent archive. MQ: USLV_1 COMPARISON: CT 10/07/2024, liver vascular ultrasound 09/20/2024 RESULT: SonographicFindings: Pancreas: Normal sonographic appearance. Portions obscured: tail Liver: Echotexture: Normal, homogeneous. Echogenicity: Similar heterogeneously hypoechoic parenchyma within the right hepatic dome, related to ischemia or operative handling. Surface contour: Smooth Lesions: None. Biliary: No intrahepatic biliary duct dilation. CBD: 1.1 cm at the hilum. Circumferential wall thickening of the extrahepatic CBD containing debris. Gallbladder: Right Kidney: No hydronephrosis. Spleen: Craniocaudal length 11 cm, normal. There are no splenic lesions. Other: Moderate volume ascites. With the patient supine and the transducer oriented perpendicular to the abdominal wall, an X was marked on the skin overlying the right lower quadrant. The following measurements were obtained: (1) Depth to e nter the fluid collection: 2.0 cm (2) Depth to mid fluid collection: 4.1 cm 5.9 x 2.5 x 3.0 cm gallbladder fossa postoperative collection, mildly decreased from prior. HEPATIC VASCULATURE: PORTAL SYSTEM: -Splenic Vein: Patent with antegrade flow (towards the liver). -Main PV: Patent with phasic antegrade flow (towards liver). 57-68 cm/sec -Right anterior PV: Patent with phasic antegrade flow (towa rds liver). 33 cm/sec -Right posterior PV: Patent with phasic antegrade flow (towards liver). 28 cm/sec -Left PV: Patent with phasic antegrade flow (towards liver). 16 cm/sec HEPATIC ARTERIES: - MainHA: Normal waveform PSV: 66-68 cm/sec. RI: 0.78-0.82 - Right anterior THIBODEAUX: Normal waveform PSV: 45 cm/sec. RI: 0.73 - Right posterior THIBODEAUX: Normal waveform PSV: 61 cm/sec. RI: 0.73 - Left THIBODEAUX: Normal waveform PSV: 68 cm/sec. RI: 0.68 HEPATIC VEINS: -Left: Patent with triphasic waveform. -Middle: Patent with triphasic waveform. -Right: Patent with triphasic waveform. IVC: Patent with normal, phasic wave form. IMPRESSION: Patent hepatic vasculature with appropriately directed flow. CBD wall thickening containing debris. Recommend further evaluation with MR pancreas/biliary. Otherwise stable sonographic appearance of the transplant liver. Moderate volume ascites, marked in the right lower quadrant. ACTIONABLE RESULT: FOLLOW-UP Acuity: Actionable Findings: Pancreas/Biliary Routing Code: PB_1 Recommendation: MRI PANCREAS/BILIARY WO/W IV CONTRAST Time Frame: At the discretion of the clinical team. COMMUNICATION: Results will be communicated with the ordering provider via [employer]io staff message or phone message by [facility] within 2 business days of report finalization. --END OF FINDING-- Stripper Apprentice: SRINI Transcribe Date/Time: Oct 08 2024 8:41A Dictated by : RAQUEL WILKES MD This examination was interpreted and the report reviewed and electronically signed by: RAQUEL WILKES MD on Oct 08 2024 9:38AM EST CT ABDOMEN PELVIS WO CONTRAST Result Date: 10/07/2024 * * *Final Report* * * DATE OF EXAM: Oct 07 2024 3:00PM [facility] 0531 - CT ABD/PEL WO IVCON / PROCEDURE REASON: ILEUS, ASCITES * * * * Physician Interpretation * * * * EXAMINATION: CT ABDOMEN AND PELVIS WITHOUT IV CONTRAST CLINICAL HISTORY: Ileus/ascites. 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 TECHNIQUE: Non-IV contrast imaging of the abdomen and pelvis was performed using standard techniqu e, scanning from just above the dome of the diaphragm to the symphysis pubis. Unenhanced imaging islimited for the evaluation of some intra-abdominal and pelvic pathology. MQ: CTAPWO_3 Contrast: IV:None CT Radiation dose: Integrated Dose-length product (DLP) for this visit = 263 mGy*cm. CT Dose Reduction Employed: Automated exposure control(AEC) and iterative recon COMPARISON: Ultrasound Dated 09/20/2024 and MRI dated 09/02/2024 RESULT: Abdomen / Pelvis: Liver: * Post OLT appearances again noted. * There is apparent interval luminal distention and hyperattenuation involving the main portal and right and left portal veins, concerning for acute portal venous thrombosis. * Persisting infiltrating hypodense area involving segments 8 and 4A (301/18). * No interval focal hepatic mass, allowing for noncontrast study. Biliary: Gallbladder is surgically absent. No definite biliary dilatation noted. Spleen: No splenomegaly. Pancreas: Unremarkable. Adrenals: No mass. Kidneys: No calculus, hydronephrosis or finding to suggest a cyst or mass in the unenhanced kidney. GI Tract: The stomach is underdistended. Mildly distended small bowel loops, to a maximum of 2.9 cm (301/74), with normal caliber small bowel loops in the right lower quadrant. Gas-distended transverse colon. Scattered colonicdiverticula. These appearances may represent partial small bowel obstruction. No evidence of extraluminal air. Lymph Nodes: No lymphadenopathy. Mesentery/peritoneum: Small to moderate volume ascites with generalized peritoneal stranding. Retroperitoneum: No mass. Vasculature: Suboptimally evaluatedin the absence of IV contrast. Mild aortoiliac atherosclerotic changes, without aneurysm. Portal vein findings, as above. Pelvis: Moderate volume ascites. Urinary bladder, prostate and seminal vesicles are unremarkable. Bones/Soft Tissues: Stable loss of height of the T12 vertebral body with retropulsion. Interval anterior wedging of the T11 vertebral body, without significant retropulsion. Old rib fractures, with nonunion on the left (301/3). Osteopenia. Ascitic fluid is seen extending into a right inguinal hernia. Lower thorax: Moderate-sized bilateral pleural effusions, loculated on the right with bibasal atelectasis. Apparent loculated air within the right pleural cavity, partially visualized (301/1). This also appears to be present on the previous chest x-ray from 10/06/2024. Coronary calcifications. Trace pericardial fluid. Localizer images: No additional findings. IMPRESSION: 1. Appearances concerning for acute portal vein thrombosis in this patient with historyof recent OLT. Evaluation is suboptimal in the absence of IV contrast. Recommend correlation with ultrasound Doppler for confirmation. 2. Mildly distended small bowel loops with normal caliber small bowel in the right lower quadrant. Gas-distended transverse colon. Findings may represent low-grade,partial SBO. No extraluminal air noted. 3. Moderate volume ascites again seen. Moderate volume freeflowing left pleural effusion. 4. Apparent loculated right hydropneumothorax. Correlation with CT of the chest may be obtained for more definite evaluation. 5. Interval anterior wedging of the T11 vertebral body. COMMUNICATION: Communicated with DAVID CRUZ on 10/07/2024 3:54 PM via verbal communication. Stripper Apprentice: [facility] Transcribe Date/Time: Oct 07 2024 3:17P Dictated by : JOSE GUADALUPE MURPHY MD This examination was interpreted and the report reviewed and electronically signed by: JOSE GUADALUPE MURPHY MD on Oct 07 2024 4:01PM EST CT ABD/PEL WO IVCON Result Date: 10/07/2024 * * *Final Report* * * DATE OF EXAM: Oct 07 2024 3:00PM [facility] 0531 - CT ABD/PEL WO IVCON / PROCEDURE REASON: ILEUS, ASCITES * * * * Physician Interpretation * * * * EXAMINATION: CT ABDOMEN AND PELVIS WITHOUT IV CONTRAST CLINICAL HISTORY: Ileus/ascites. 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 TECHNIQUE: Non-IV contrast imaging of the abdomen and pelvis was performed using standard technique, scanning from just above the dome of the diaphragm to the symphysis pubis. Unenhanced imaging is limited for the evaluation of some intra-abdominal and pelvic pathology. MQ: CTAPWO_3 Contrast: IV: None CT Radiation dose: Integrated Dose-length product (DLP) for this visit = 263 mGy*cm. CT Dose Red uction Employed: Automated exposure control(AEC) and iterative recon COMPARISON: Ultrasound Dated 09/20/2024 and MRI dated 09/02/2024 RESULT: Abdomen / Pelvis: Liver: * Post OLT appearances again noted. * There is apparent interval luminal distention and hyperattenuation involving the main portal and right and left portal veins, concerning for acute portal venous thrombosis. * Persisting infiltrating hypodense area involving segments 8 and 4A (301/18). * No interval focal hepatic mass, allowingfor noncontrast study. Biliary: Gallbladder is surgically absent. No definite biliary dilatation noted. Spleen: No splenomegaly. Pancreas: Unremarkable. Adrenals: No mass. Kidneys: No calculus, hydronephrosis or finding to suggest a cyst or mass in the unenhanced kidney. GI Tract: The stomach is underdistended. Mildly distended small bowel loops, to a maximum of 2.9 cm (301/74), with normal caliber small bowel loops in the right lower quadrant. Gas-distended transverse colon. Scattered colonic diverticula. These appearances may represent partial small bowel obstruction. No evidence of extraluminal air. Lymph Nodes: No lymphadenopathy. Mesentery/peritoneum: Small to moderate volume ascites with generalized peritoneal stranding. Retroperitoneum: No mass. Vasculature: Suboptimally evaluated in the absence of IV contrast. Mild aortoiliac atherosclerotic changes, without aneurysm. Portal vein findings, as above. Pelvis: Moderate volume ascites. Urinary bladder, prostate and seminal vesicles are unremarkable. Bones/Soft Tissues: Stable loss of height of the T12 vertebral body with retropulsion. Interval anterior wedging of the T11 vertebral body, without significant retropulsion. Old rib fractures, with nonunion on the left (301/3). Osteopenia. Ascitic fluid is seen extending into a right inguinal hernia. Lower thorax: Moderate-sized bilateral pleural effusions, loculated on the right with bibasal atelectasis. Apparent loculated air within the right pleural cavity, partially visualized (301/1). This also appears to be present on the previous chest x-ray from 10/06/2024. Coronary calcifications. Trace pericardial fluid. Localizer images: No additional findings. IMPRESSION: 1. Appearances concerning for acute portal vein thrombosis in this patient with history of recent OLT. Evaluation is suboptimal in the absence of IV contrast. Recommend correlation with ultrasound Dopplerfor confirmation. 2. Mildly distended small bowel loops with normal caliber small bowel in the right lower quadrant. Gas-distended transverse colon. Findings may represent low-grade, partial SBO. No extraluminal air noted. 3. Moderate volume ascites again seen. Moderate volume free flowing left pleural effusion. 4. Apparent loculated right hydropneumothorax. Correlation with CT of the chest may be obtained for more definite evaluation. 5. Interval anterior wedging of the T11 vertebral body. COMMUNICATION: Communicated with DAVID CRUZ on 10/07/2024 3:54 PM via verbal communication. Stripper Apprentice: [facility] Transcribe Date/Time: Oct 07 2024 3:17P Dictated by : JOSE GUADALUPE MURPHY MD This examination was interpreted and the report reviewed and electronically signed by: JOSE GUADALUPE MURPHY MD on Oct 07 2024 4:01PM EST [id number]^ACN CT ABD/PEL WO IVCON Result Date: 10/07/2024 * * *Final Report* * * DATE OF EXAM: Oct 07 2024 3:00PM [facility] 0531 - CT ABD/PEL WO IVCON / PROCEDURE REASON: ILEUS, ASCITES * * * * Physician Interpretation * * * * EXAMINATION: CT ABDOMEN AND PELVIS WITHOUT IV CONTRAST CLINICAL HISTORY: Ileus/ascites. 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 TECHNIQUE: Non-IV contrast imaging of the abdomen and pelvis was performed using standard technique, scanning from just above the dome of the diaphragm to the symphysis pubis. Unenhanced imaging is limited for the evaluation of some intra-abdominal and pelvic pathology. MQ: CTAPWO_3 Contrast: IV: None CT Radiation dose: Integrated Dose-length product (DLP) for this visit = 263 mGy*cm. CT Dose Red uction Employed: Automated exposure control(AEC) and iterative recon COMPARISON: Ultrasound Dated 09/20/2024 and MRI dated 09/02/2024 RESULT: Abdomen / Pelvis: Liver: * Post OLT appearances again noted. * There is apparent interval luminal distention and hyperattenuation involving the main portal and right and left portal veins, concerning for acute portal venous thrombosis. * Persisting infiltrating hypodense area involving segments 8 and 4A (301/18). * No interval focal hepatic mass, allowingfor noncontrast study. Biliary: Gallbladder is surgically absent. No definite biliary dilatation noted. Spleen: No splenomegaly. Pancreas: Unremarkable. Adrenals: No mass. Kidneys: No calculus, hydronephrosis or finding to suggest a cyst or mass in the unenhanced kidney. GI Tract: The stomach is underdistended. Mildly distended small bowel loops, to a maximum of 2.9 cm (301/74), with normal caliber small bowel loops in the right lower quadrant. Gas-distended transverse colon. Scattered colonic diverticula. These appearances may represent partial small bowel obstruction. No evidence of extraluminal air. Lymph Nodes: No lymphadenopathy. Mesentery/peritoneum: Small to moderate volume ascites with generalized peritoneal stranding. Retroperitoneum: No mass. Vasculature: Suboptimally evaluated in the absence of IV contrast. Mild aortoiliac atherosclerotic changes, without aneurysm. Portal vein findings, as above. Pelvis: Moderate volume ascites. Urinary bladder, prostate and seminal vesicles are unremarkable. Bones/Soft Tissues: Stable loss of height of the T12 vertebral body with retropulsion. Interval anterior wedging of the T11 vertebral body, without significant retropulsion. Old rib fractures, with nonunion on the left (301/3). Osteopenia. Ascitic fluid is seen extending into a right inguinal hernia. Lower thorax: Moderate-sized bilateral pleural effusions, loculated on the right with bibasal atelectasis. Apparent loculated air within the right pleural cavity, partially visualized (301/1). This also appears to be present on the previous chest x-ray from 10/06/2024. Coronary calcifications. Trace pericardial fluid. Localizer images: No additional findings. IMPRESSION: 1. Appearances concerning for acute portal vein thrombosis in this patient with historyof recent OLT. Evaluation is suboptimal in the absence of IV contrast. Recommend correlation with ultrasound Doppler for confirmation. 2. Mildly distended small bowel loops with normal caliber small bowel in the right lower quadrant. Gas-distended transverse colon. Findings may represent low-grade,partial SBO. No extraluminal air noted. 3. Moderate volume ascites again seen. Moderate volume freeflowing left pleural effusion. 4. Apparent loculated right hydropneumothorax. Correlation with CT of the chest may be obtained for more definite evaluation. 5. Interval anterior wedging of the T11 vertebral body. COMMUNICATION: Communicated with DAVID CRUZ on 10/07/2024 3:54 PM via verbal communication. Stripper Apprentice: SR[employer] Transcribe Date/Time: Oct 07 2024 3:17P Dictated by : JOSE GUADALUPE MURPHY MD This examination was interpreted and the report reviewed and electronically signed by: JOSE GUADALUPE MURPHY MD on Oct 07 2024 4:01PM EST CT BRAIN WO IVCON Result Date: 10/07/2024 * * *Final Report* * * DATE OF EXAM: Oct 07 2024 3:00PM [facility] 0504 - CT BRAIN WO IVCON / PROCEDURE REASON: slurred speech * * * * Physician Interpretation * * * * EXAMINATION: CT BRAIN WO IVCON CLINICAL HISTORY: Slurred speech TECHNIQUE: Serial axial images without IV contrast were obtained from the vertex to the foramen magnum. MQ: CTBWO_3 CT Radiation dose: Integrated Dose-[place] ngth Product (DLP) for this visit = 820 mGy*cm CT Dose Reduction Employed: Automated exposure control(AEC) and iterative recon COMPARISON: Head CT dated 08/27/2024, 08/23/2024 RESULT: Post-operative change: None. Acute change: No evidence of an acute infarct or other acute parenchymal process. Hemorrhage: No evidence of acute intracranial hemorrhage. ECASS hemorrhagic transformation score: Not Applicable Mass Lesion / Mass Effect: There is no evidence of an intracranial mass or extraaxial fluidcollection. No significant mass effect. Chronic change: Scattered patchy foci of low attenuation are present within the supratentorial white matter, a nonspecific finding that most commonly represents mild small vessel disease. Parenchyma:There is moderate generalized volume loss. Ventricles: Ventricular enlargement concordant with the degree of parenchymal volume loss. Paranasal sinuses and skull base: The visualized paranasal sinuses are grossly clear. The skull base and imaged soft tissues are unremarkable. Localizer images: No additional findings. IMPRESSION: NO CT EVIDENCE OF ACUTE INTRACRANIAL PROCESS. NO SIGNIFICANT INTERVAL CHANGE SINCE 08/27/2024. Stripper Apprentice: SRINI Transcribe Date/Time: Oct 07 2024 3:20P Dictated by : ROSAURA CERVANTES MD This examination was interpreted and the report reviewed and electronically signed by: ROSAURA CERVANTES MD on Oct 07 2024 3:22PM EST [id number]^ACN CT BRAIN WO IVCON Result Date: 10/07/2024 * * *Final Report* * * DATE OF EXAM: Oct 07 2024 3:00PM [facility] 0504 - CT BRAIN WO IVCON / PROCEDURE REASON: slurred speech * * * * Physician Interpretation * * * * EXAMINATION: CT BRAIN WO IVCON CLINICAL HISTORY: Slurred speech TECHNIQUE: Serial axial images without IV contrast were obtained from the vertex to the foramen magnum. MQ: CTBWO_3 CT Radiation dose: Integrated Dose-Le ngth Product (DLP) for this visit = 820 mGy*cm CT Dose Reduction Employed: Automated exposure control(AEC) and iterative recon COMPARISON: Head CT dated 08/27/2024, 08/23/2024 RESULT: Post-operative change: None. Acute change: No evidence of an acute infarct or other acute parenchymal process. Hemorrhage: No evidence of acute intracranial hemorrhage. ECASS hemorrhagic transformation score: Not Applicable Mass Lesion / Mass Effect: There is no evidence of an intracranial mass or extraaxial fluidcollection. No significant mass effect. Chronic change: Scattered patchy foci of low attenuation are present within the supratentorial white matter, a nonspecific finding that most commonly represents mild small vessel disease. Parenchyma:There is moderate generalized volume loss. Ventricles: Ventricular enlargement concordant with the degree of parenchymal volume loss. Paranasal sinuses and skull base: The visualized paranasal sinuses are grossly clear. The skull base and imaged soft tissues are unremarkable. Localizer images: No additional findings. IMPRESSION: NO CT EVIDENCE OF ACUTE INTRACRANIAL PROCESS. NO SIGNIFICANT INTERVAL CHANGE SINCE 08/27/2024. Stripper Apprentice: [facility] Transcribe Date/Time: Oct 07 2024 3:20P Dictated by : ROSAURA CERVANTES MD This examination was interpreted and the report reviewed and electronically signed by: ROSAURA CERVANTES MD on Oct 07 2024 3:22PM EST US abdomen limited Result Date: 10/07/2024 * * *Final Report* * * DATE OF EXAM: Oct 07 2024 10:35AM [id number] - US ABDOMEN LTD / PROCEDURE REASON: asictes * * * * Physician Interpretation * * * * Clinical information: Ascites Ascites survey was performed. Images were obtained and stored in a permanent archive. Ascites pr esent within all four quadrants, with moderate fluid volume within the right lower quadrant. Smaller volume ascites within the right upper quadrant, left upper quadrant, and left lower quadrant. Impression: Ascites, largest volume within the right lower quadrant Stripper Apprentice: [facility] Transcribe Date/Time: Oct 07 2024 10:50A Dictated by : AMARILIS MACK MD This examination was interpreted and thereport reviewed and electronically signed by: AMARILIS MACK MD on Oct 07 2024 10:51AM EST XR ABDOMEN 1 VWS Result Date: 10/06/2024 * * *Final Report* * * DATE OF EXAM: Oct 06 2024 2:59PM [id number] - XR ABDOMEN 1V SUPINE / PROCEDURE REASON: SOB, VS WNL * * * * Physician Interpretation * * * * EXAMINATION: XR ABDOMEN 1V SUPINE, XR CHEST 1V FRONTAL CLINICAL HISTORY: Shortness of breath Comparison: Abdominal x-ray October 03, 2024 RESULT: Lines, tubes, and devices: None Lungs and pleura: Bilateral pleural effusions, right greater than left and right lower lobe consolidation versus atelectasis. Cardiomediastinal silhouette: The cardiomediastinal silhouette is within normal limits given positioning and technique. Bowel: Dilated loops of small bowel up to 4.7 cm. Air is seen in the right colon. Bones/Soft tissues: Surgical clips right upper quadrant of the abdomen. IMPRESSION: 1. Bilateral pleural effusions, right greater than left and right lower lobe consolidation versus atelectasis. 2. Nonspecific dilation of loops of small bowel up to 4.7 cm. This could represent ileus or obstruction. Stripper Apprentice: [facility] Transcribe Date/Time: Oct 06 2024 4:21P Dictatedby : THERESA ORANTES MD This examination was interpreted and the report reviewed and electronically signed by: THERESA ORANTES MD on Oct 06 2024 4:23PM EST XR CHEST 1 VWS Result Date: 10/06/2024 * * *Final Report* * * DATE OF EXAM: Oct 06 2024 2:59PM [id number] - XR CHEST 1V FRONTAL / PROCEDURE REASON: SOB, stable VS * * * * Physician Interpretation * * * * EXAMINATION: XR ABDOMEN 1V SUPINE, XR CHEST 1V FRONTAL CLINICAL HISTORY: Shortness of breath Comparison: Abdominalx-ray October 03, 2024 RESULT: Lines, tubes, and devices: None Lungs and pleura: Bilateral pleural effusions, right greater than left and right lower lobe consolidation versus atelectasis. Cardiomediastinal silhouette: The cardiomediastinal silhouette is within normal limits given positioning and technique. Bowel: Dilated loops of small bowel up to 4.7 cm. Air is seen in the right colon. Bones/Soft tissues: Surgical clips right upper quadrant of the abdomen. IMPRESSION: 1. Bilateral pleural effusions, right greater than left and right lower lobe consolidation versus atelectasis. 2. Nonspecific dilation of loops of small bowel up to 4.7 cm. This could represent ileus or obstruction. Stripper Apprentice: [facility] Transcribe Date/Time: Oct 06 2024 4:21P Dictatedby : THERESA ORANTES MD This examination was interpreted and the report reviewed and electronically signed by: THERESA ORANTES MD on Oct 06 2024 4:23PM EST XR ABDOMEN 1V SUPINE Result Date: 10/06/2024 * * *Final Report* * * DATE OF EXAM: Oct 06 2024 2:59PM [id number] - XR ABDOMEN 1V SUPINE / PROCEDURE REASON: SOB, VS WNL * * * * Physician Interpretation * * * * EXAMINATION: XR ABDOMEN 1V SUPINE, XR CHEST 1V FRONTAL CLINICAL HISTORY: Shortness of breath Comparison: Abdominal x-ray October 03, 2024 RESULT: Lines, tubes, and devices: None Lungs and pleura: Bilateral pleural effusions, right greater than left and right lower lobe consolidation versus atelectasis. Cardiomediastinal silhouette: The cardiomediastinal silhouette is within normal limits given positioning and technique. Bowel: Dilated loops of small bowel up to 4.7 cm. Air is seen in the right colon. Bones/Soft tissues: Surgical clips right upper quadrant of the abdomen. IMPRESSION: 1. Bilateral pleural effusions, right greater than left and right lower lobe consolidation versus atelectasis. 2. Nonspecific dilation of loops of small bowel up to 4.7 cm. This could represent ileus or obstruction. Stripper Apprentice: [facility] Transcribe Date/Time: Oct 06 2024 4:21P Dictatedby : THERESA ORANTES MD This examination was interpreted and the report reviewed and electronically signed by: THERESA ORANTES MD on Oct 06 2024 4:23PM EST US abdomen limited Result Date: 10/06/2024 * * *Final Report* * * DATE OF EXAM: Oct 06 2024 12:59PM [id number] - US ABDOMEN LTD / PROCEDURE REASON: distended abdomen/ascities survey * * * * Physician Interpretation * * * *ASCITES SURVEY INDICATION: Ascites COMPARISON: 09/20/2024 US liver vascular TECHNIQUE: Real-time grayscale ultrasound imaging of the 4 quadrants was performed. Images were obtained and stored in a permanent archive. RESULT: See impression. IMPRESSION: Small volume of intraperitoneal ascites. Stripper Apprentice: [employer] Transcribe Date/Time: Oct 06 2024 2:02P Dictated by : DANIEL LACY MD This examination was interpreted and the report reviewed and electronically signed by: DANIEL LACY MD on Oct 06 2024 2:03PM EST XR foot right 3+ vws Result Date: 10/05/2024 * * *Final Report* * * DATE OF EXAM: Oct 05 2024 2:07PM [id number] - XR FOOT 3V AP/LAT/OBL RT / PROCEDURE REASON: pain in big toe * * * * Physician Interpretation * * * * EXAMINATION: XR FOOT 3V AP/LAT/OBL RT CLINICAL HISTORY: pain in big toe TECHNOLOGIST PROVIDED HISTORY: pain in big toe TECHNIQUE: XR FOOT 3V AP/LAT/OBL RT Laterality: RIGHT Number of different views (projections): 3 M: XB_1 COMPARISON: None available. RESULT: No acute fracture or dislocation. Mild first MTPand scattered interphalangeal joint space narrowing. The joint space are otherwise maintained. Small plantar spur. Vascular calcifications. Diffuse soft tissue edema. IMPRESSION: No acute osseous abnormality. Soft tissue edema. Stripper Apprentice: [employer] Transcribe Date/Time: Oct 05 2024 3:09P Dictated by : ROLANDO BENAVIDES DO This examination was interpreted and the report reviewed and electronically signed by: WARREN EASLEY MD on Oct 05 2024 3:17PM EST XR FOOT GENERAL 3V AP/LAT/OBL RIGHT Result Date: 10/05/2024 * * *Final Report* * * DATE OF EXAM: Oct 05 2024 2:07PM [id number] - XR FOOT 3V AP/LAT/OBL RT / PROCEDURE REASON: pain in big toe * * * * Physician Interpretation * * * * EXAMINATION: XR FOOT 3V AP/LAT/OBL RT CLINICAL HISTORY: pain in big toe TECHNOLOGIST PROVIDED HISTORY: pain in big toe TECHNIQUE: XR FOOT 3V AP/LAT/OBL RT Laterality: RIGHT Number of different views (projections): 3 M: XB_1 COMPARISON: None available. RESULT: No acute fracture or dislocation. Mild first MTPand scattered interphalangeal joint space narrowing. The joint space are otherwise maintained. Small plantar spur. Vascular calcifications. Diffuse soft tissue edema. IMPRESSION: No acute osseous abnormality. Soft tissue edema. Stripper Apprentice: [facility] Transcribe Date/Time: Oct 05 2024 3:09P Dictated by : ROLANDO BENAVIDES DO This examination was interpreted and the report reviewed and electronically signed by: WARREN EASLEY MD on Oct 05 2024 3:17PM DAVID MALIK DO * Aidan Brown MD - 11/05/2024 4:36 PM EDT Pulmonary / Critical Care Progress Note Subjective: Breathing is about the same he does report intermittent dyspnea on exertion he is on room air no cough no productive mucus. No edema. He reports nausea improved Objective: Vital signs for last 24 hours: Temp: [97 ??F (36.1 ??C)-98.1 ??F (36.7 ??C)] 97 ??F (36.1 ??C) Pulse: [59-94] 59 Resp: [17-18] 17 BP: (81-135)/(60-85) 114/67 Intake/Output last 3 shifts: I/O last 3 completed shifts: In: 360 [P.O.:360] Out: 1300 Intake/Output this shift: I/O this shift: In: 320 [P.O.:320] Out: 900 Weight: Weight change: Physical Exam: General awake alert following command HEENT pupils equal and clear sclera clear oropharynx Neck supple Cardiovascular regular rhythm S1-S2 Lungs clear to auscultation no wheezing Abdomen soft nontender Extremity no edema cyanosis or clubbing Neurologically nonfocal cranial nerves intact grossly Imaging: I have reviewed all lmaging and testing from the last 24 hrs Lab Review: CBC: Recent Labs Lab Units 11/04/24 0510 WBC k/uL 3.31* RBC AUTO m/uL 2.56* HEMOGLOBIN g/dL 7.6* HEMATOCRIT % 24.5* MCV fL 95.7 PLATELETS AUTO k/uL 554* BMP: Recent Labs Lab Units 11/04/24 0510 SODIUM mmol/L 134* POTASSIUM mmol/L 5.0 CHLORIDE mmol/L 98 CO2 mmol/L 25 BUN mg/dL 10 CREATININE mg/dL 0.99 GLUCOSE mg/dL 88 CALCIUM mg/dL 8.5 ANION GAP mmol/L 11 PT/INR: BNP: Troponin: U/A: Invalid input(s): PROTUA , EPITH , BACTERIA LFT's: Recent Labs Lab Units 11/04/24 0510 PROTEIN TOTAL g/dL 5.2* Ionized Calcium: Invalid input(s): IONCA ABG: Invalid input(s): BDEF Current Facility-Administered Medications Medication Dose Route Frequency Provider Last Rate Last Admin acetaminophen (TYLENOL) 160 MG/5ML solution 500 mg 500 mg Oral Q6H PRN David Cruz, DO albumin human 25 % 25 g 25 g Intravenous Once Barry Palmer APRN alum & mag hydroxide-simeth enteral suspension 15 mL 15 mL Oral Q4H PRN David Cruz, DO 15mL at 11/02/24 0520 aspirin EC tablet 81 mg 81 mg Oral Once a day David Cruz DO 81 mg at 11/06/24 0800 bisacodyl (DULCOLAX) suppository 10 mg 10 mg Rectal Daily PRN David Cruz, DO Buprenorphine (BUTRANS) patch 5 mcg 5 mcg Transdermal Q7 Days David Cruz DO 5 mcg at 11/05/24 1322 And Check Patch Placement Transdermal BID David Cruz DO Check Patch Placement at 11/06/24 0711 DAPTOmycin (CUBICIN) 700 mg in sodium chloride 0.9 % 114 mL IVPB 700 mg Intravenous Q24H David Cruz DO 700 mg at 11/06/24 1327 epoetin omar (PROCRIT) injection 15,000 Units 15,000 Units Subcutaneous Once per day on Monday Chelsea Cunningham MD 15,000 Units at 11/06/24 0805 famotidine (PEPCID) tablet 20 mg 20 mg Oral 2 times per day David Cruz, DO 20 mg at 11/06/24 08 furosemide (LASIX) tablet 40 mg 40 mg Oral 2 times per day Chelsea Cunningham MD 40 mg at 326 heparin (porcine) injection 5,000 Units 5,000 Units Subcutaneous Q12H [facility] David Cruz, DO 5,000 Units at 11/06/24 08 magnesium hydroxide (MILK OF MAGNESIA) 400 MG/5ML suspension 30 mL 30 mL Oral Daily PRN David Cruz DO magnesium oxide tablet 800 mg 800 mg Oral 3 times per day Suze Jenkins MD 800 mg at 11/06/24 1454 methocarbamol (ROBAXIN) tablet 750 mg 750 mg Oral TID PRN David Cruz DO 750 mg at 11/06/24 08 midodrine (PROAMATINE) tablet 10 mg 10 mg Oral 3 times per day Barry Palmer APRN mirtazapine (REMERON) tablet 7.5 mg 7.5 mg Oral Nightly David Cruz DO 7.5 mg at 11/05/242003 multivitamin w/ minerals (THERA M PLUS) tablet/capsule 1 tablet 1 tablet Oral Once a day David Cruz DO 1 tablet at 11/06/24 08 ondansetron ODT (ZOFRAN-ODT) disintegrating tablet 4 mg 4 mg Oral Q6H PRN Suze Jenkins MD 4 mg at11/04/24 1137 oxyCODONE (ROXICODONE) immediate release tablet 10 mg 10 mg Oral Q6H PRN Suze Jenkins MD 10 mg at11/06/24 0829 pantoprazole (PROTONIX) EC/DR tablet 40 mg 40 mg Oral BID AC David Cruz DO 40 mg at 746 polyethylene glycol (MIRALAX) packet 17 g 17 g Oral Once a day David Cruz DO senna (SENOKOT) tablet 2 tablet 2 tablet Oral Nightly David Cruz DO 2 tablet at 11/03/24 2148 sulfamethoxazole-trimethoprim (BACTRIM) 800-160 MG per tablet double-strength 1 tablet 1 tablet Oral Once per day on Monday David Nurari, DO 1 tablet at 11/06/24 0801 tacrolimus (PROGRAF) capsule 5 mg 5 mg Oral 2 times per day David Cruz, DO 5 mg at 11/06/24 0509 tamsulosin (FLOMAX) 24 hr capsule 0.4 mg 0.4 mg Oral Nightly David Cruz, DO 0.4 mg at 11/05/242004 traZODone (DESYREL) tablet 50 mg 50 mg Oral Nightly David Nurari, DO 50 mg at 11/05/242003 ursodiol (ACTIGALL) capsule 300 mg 300 mg Oral 3 times per day David Cruz, DO 300 mg at 11/06/24 145 valGANciclovir (VALCYTE) tablet 900 mg 900 mg Oral 2 times per day David Cruz, DO 900 mg at 11/06/24 0800 Assessment / Plan Active Problems: Critical illness myopathy S/p liver transplant Hepatocellular carcinoma BL pleural effusions and right hydropneumothorax post pig tail right side and thoracentesis . Mostrecent chest x-ray was reviewed and the effusions are not large enough for intervention continue diuretics Biliary infection on Daptomycin till 11/12, no evidence of side effects. Continue to monitor Ileus improved Multiloculated ascites AIDAN BROWN MD * Betty Dias DO - 11/05/2024 2:56 PM EDT Medicine Follow Up Note [facility] Patient identification: Name: Charles Blandon : 1955 Admitted: 10/30/2024 7:01 PM Subjective: Back pain has improved ROS: Acute on chronic back pain Objective: BP 102/65 Pulse 75 Temp 97.6 ??F (36.4 ??C) (Oral) Resp 19 Ht 5' 9 (1.753 m) Wt 165 lb 8oz (75.1 kg) SpO2 92% BMI 24.44 kg/m?? Intake/Output last 3 shifts: I/O last 3 completed shifts: In: 680 [P.O.:680] Out: 1710 [Drains:10] Intake/Output this shift: No intake/output data recorded. Weight: Weight change: Physical Exam: General: Awake, alert. In mild distress HEENT: NCAT Lungs: CTA b/l Heart; S1 S2 normal Abdomen: non-distended Extremities: no edema Assessment/Plan: Hx of Liver transplantation CBD stent Bile leak (s/p perihepatic aspiration and drain placement) Continue daptomycin for 4 week course Repeat ERCP in 1 month Continue Bactrim, Prograf, Valcyte Monitor CMV Continue baby aspirin due to thrombocytosis VRE (vancomycin-resistant Enterococci) infection Continue Daptomycin, monitor CK Cytomegalovirus (CMV) viremia Continue Valcyte Follow CMV levels qMon Fluid overload Continue Lasix Trans daily weights Nausea & vomiting Ileus without SBO Continue regular diet Continue bowel regimen Zofran PRN Chronic bilateral low back pain without sciatica History of T11 and T12 compression fractures Consulted Neurosurgery - not an appropriate surgical candidate Pain control PT/OT Lumbar x-ray-no acute abnormalities Vertigo CT brain 10/07: negative MRI brain 10/24: negative for acute abnormality follow up with Vestibular Neurologist, Dr. Roach Moderate-sized loculated right hydropneumothorax. Medium-sized left pleural effusion RVP (+) parainfluenza 3 S/p left thoracentesis 10/14: 320 cc drained, culture NGTD Stable, currently on room air Anemia due to multiple mechanisms Monitor Severe protein-calorie malnutrition Continue regular diet Nutrition following GERD (gastroesophageal reflux disease) Continue pepcid BID DVT ppx; Heparin BID Betty Dias D.O. 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 Functional Bowel Incontinence Protein Calorie Malnutrition Gait Abnormality Ambulatory Dysfunction ADL Dysfunction Debility Cognitive Impairment Constipation Coordination Deficit Spasticity Skin Wound Neuropathic Pain Chronic Pain Balance Deficits PLAN: IM, ID, Nephro, Pulm, Cardio Consult Psychologist consultation and evaluation, Melatonin, Trazodone; remeron Biweekly immunosuppression labs, viral surveillance titre's weekly and biweekly IDT with liver transplant team ATB Daptomycin IV to complete 11/12 Prophylaxis: Acyclovir, Bactrim, Nystatin swish/swallow completes 09/30 Immunosuppression: prograf bid, cellcept bid, prednisone completed 09/30 Midodrine tid to keep BP normal Bowel Program: Miralax, Colace, Senna, Dulcolax Glycemic Control:Lispro Bladder Retraining and eval for high PVR and IC if >300, Flomax Nutritional Support - Adult Diet Regular; 7 Regular (Regular Texture); 0 Thin (All Liquids) GI prophylaxis: Protonix Fall Prevention Isolation: No active isolations Pain management: Acetaminophen, Oxycodone, Lidocaine, Robaxin DVT prophylaxis: Lovenox 11/05 add butrans 5mcg patch for chronic back pain Rehab Issues: Potential barriers to progress- complex medical issues, significant impairments. Rehab plan- PT/OT for ADLs, transfer, and gait training, ROM , strengthening and balance exercises,assistive device prescription. Rehab nursing for skin care, bowel and bladder care, administration of medication, patient and family education. Case management for care coordination and discharge.Therapy schedule will be 3 hrs/day x 5-6 days/week or 15 hrs/7 days in special situations. Weekly Interdisciplinary Rehab Team Meeting to address barriers to discharge and coordination of care. Subjective: Back pain with prolonged sitting, takes oxycodone 10 mg. 10 pt ROS negative for - chills, fatigue, fever, malaise, night sweats, sleep disturbance, or THIBODEAUX, CP, SOB, diarrhea. IDT conference with livertransplant team, CM, RN and therapy department discussing progress, discussed significant diagnostics results and confirming dispo planning. Current Function: 11/05/2024: SM Functional Status PT Data (since 11/02/2024) Value Time User Bed Mobility Level of Assist Minimal Assistance 11/05/2024 9:45 AM Jessica Kinsey, PT Bed Mobility Comment Supine to sit with Meena to right trunk 11/05/2024 9:45 AM Jessica Kinsey PT Transfer to Wheelchair 11/05/2024 10:10 AM Jessica Kinsey, PT Transfer from Bed 11/05/2024 10:10 AM Jessica Kinsey PT Transfer Level of Assist Close Supervision 11/05/2024 10:10 AM Jessica Kinsey PT Ambulation Level of Assist Close Supervision; Minimal Assistance; Total Assistance/Dependent 11/05/2024 10:10 AM Jessica Kinsey, PT Distance (feet) 180 11/05/2024 10:10 AM Jessica Kinsey PT Gait Analysis 180 ft x2 with RW and SBA to monitor balance. Pt demos kyphotic posture with mild unsteadiness. 32 ft with no device and Meena + WCF. Emphasis on progressing toward patient goal of ambulating without device and challenging balance. Pt unsteady with downward gaze. Reviewed ongoing benefit of walker for balance, mitigating back pain, and energy conservation. 11/05/2024 10:10 AM Jessica Kinsey, PT WC Analysis PT dependently transported patient room <> therapy gym, utilizing this time to establish goals for session then re-assess pain levels 11/03/2024 3:23 PM Belinda Larsen, PT Objective: Physical Exam: VS: BP 122/75 Pulse 69 Temp 97.6 ??F (36.4 ??C) (Oral) Resp 19 Ht 5' 9 (1.753 m) Wt 165 lb 8 oz (75.1 kg) SpO2 95% BMI 24.44 kg/m?? General: NAD CV: No c/c/e Pulm: No audible wheezing or stridor Abdomen: soft, non-tender, No g/r/r Extremities: Full ROM in all limbs, Tone normal in all limbs Wound Management: Wound Management Orders (From admission, onward) Start Ordered 11/01/24 1400 Wound Management: Use Associated Wounds location ([place]); Wound prevention Weekly Comments: Apply foam. Assess under foam with each skin assessment. Question Answer Comment Wound Location Use Associated Wounds location [place] Wound Management Wound prevention 10/31/24 1115 10/31/24 0933 Wound Management: Use Associated Wounds location (ALL WOUNDS/PREVENTION); Wound care per algorithm Per algorithm Question Answer Comment Wound Location Use Associated Wounds location ALL WOUNDS/PREVENTION Wound Management Wound care per algorithm 10/31/24 0932 Section GG CARE Scores - Current All Therapy Physical Therapy Car Transfer Car Transfer - CARE Score: 3 (11/04/24 153) Walk 10 Feet Walk 10 Feet - CARE Score: 4 (11/04/241533) Walk 50 Feet with Two Turns Walk 50 Feet with Two Turns - CARE Score: 4 (11/04/241533) Walk 150 Feet Walk 150 Feet - CARE Score: 4 (11/04/241533) Walking 10 Feet on Uneven Surfaces Walking 10 Feet on Uneven Surfaces - CARE Score: 88 (11/04/241533) 1 Step (Curb) 1 Step (Curb) - CARE Score: 4 (11/04/24 153) 4 Steps 4 Steps - CARE Score: 4 (11/04/24 153) 12 Steps 12 Steps - CARE Score: 88 (11/04/24 153) Picking Up Object Picking Up Object - CARE Score: 88 (11/04/241533) Wheel 50 Feet with Two Turns Wheel 50 Feet with Two Turns - CARE Score: 1 (11/04/24 153) Wheel 150 Feet Wheel 150 Feet - CARE Score: 1 (11/04/24 153) Occupational Therapy Eating Eating - CARE Score: 5 (11/04/24 154) Oral Hygiene Oral Hygiene - CARE Score: 5 (11/04/241543) Toileting Hygiene Toileting Hygiene - CARE Score: 2 (11/04/241543) Shower/Bathe Self Shower/Bathe Self - CARE Score: 2 (11/04/24 154) Upper Body Dressing Upper Body Dressing - CARE Score: 3 (11/04/24 154) Lower Body Dressing Lower Body Dressing - CARE Score: 2 (11/04/241543) Putting On/Taking Off Footwear Putting On/Taking Off Footwear - CARE Score: 3 (11/04/241543) Roll Left and Right Roll Left and Right - CARE Score: 3 (11/04/241543) Sit to Lying Sit to Lying - CARE Score: 4 (11/04/241543) Lying to Sitting on Side of Bed Lying to Sitting on Side of Bed - CARE Score: 4 (11/04/241543) Sit to Stand Sit to Stand - CARE Score: 4 (11/04/241543) Chair/Ojt-su-Zswrp Transfer Chair/Mqa-wa-Aqdbp Transfer - CARE Score: 4 (11/04/241543) Toilet Transfer Toilet Transfer - CARE Score: 4 (11/04/241543) Speech Therapy Expression of Ideas and Wants Expression of Ideas and Wants: Without difficulty (10/31/24822) Understanding Verbal and Non-Verbal Content Understanding Verbal and Non-Verbal Content: Understands (10/31/24822) BIMS Brief Interview for Mental Status (BIMS) Repetition of Three Words (First Attempt): 3 (10/31/24822) Temporal Orientation: Year: Correct (10/31/24822) Temporal Orientation: Month: Accurate within 5 days (10/31/24822) Temporal Orientation: Day: Correct (10/31/24822) Recall: Sock : Yes, no cue required (10/31/24822) Recall: Blue : Yes, no cue required (10/31/24822) Recall: Bed : Yes, after cueing ( a piece of furniture ) (10/31/24822) BIMS Summary Score: 14 (10/31/24822) Memory/Recall Ability Labs: Imaging: US DOPPLER COMPLETE Result Date: 10/29/2024 * * *Final Report* * * DATE OF EXAM: Oct 29 2024 3:39PM [facility] 1033 - US DOPPLER COMPLETE / PROCEDURE REASON: Liver transplant * * * * Physician Interpretation * * * * EXAMINATION:LIVER VASCULAR ULTRASOUND WITH DOPPLER IMAGING CLINICAL HISTORY: 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 Images were obtained and stored in a permanent archive. MQ: USLV_1 COMPARISON:CT 10/24/2024, ultrasound 10/19/2024. RESULT: Sonographic Findings: Pancreas: Normal sonographic appearance. Portions obscured: tail Liver: Echotexture: Normal, homogeneous. Echogenicity: Normal Surface contour: Smooth Lesions: None. Biliary: No intrahepatic biliary duct dilation. Stable pneumobilia. CBD: 0.8 cm at the hilum. Gallbladder: Prior cholecystectomy. Gallbladder fossa partially obscured with drain in place. Right Kidney: No hydronephrosis. Spleen: Craniocaudal length 9.4 cm, normal. There are no splenic lesions. Other: Moderate volume loculated ascites, increased from prior ultrasound 10/19/2024 HEPATIC VASCULATURE: PORTAL SYSTEM: -Splenic Vein: Patent with antegrade flow (towards the liver). -Main PV: Patent with phasic antegrade flow (towards liver). 44-58 cm/sec. Previously 38-53 cm/sec. -Right anterior PV: Patent with phasic antegrade flow (towards liver). 25.5 cm/sec. Pre viously 30 cm/sec -Right posterior PV: Patent with phasic antegrade flow (towards liver). 30 cm/sec. Previously 32 cm/sec -Left PV: Patent with phasic antegrade flow (towards liver). 19 cm/sec. Previously 26 cm/sec HEPATIC ARTERIES: - Main THIBODEAUX: Normal waveform PSV: 51-57 cm/sec. RI: 0.74-0.75. Previo usly 70-84 cm/sec. RI: 0.76-0.80 - Right anterior THIBODEAUX: Normal waveform PSV: 59 cm/sec. RI: 0.68. Previously 66 cm/sec. RI: 0.72 - Right posterior THIBODEAUX: Normal waveform PSV: 81 cm/sec. RI: 0.74. Previously 66 cm/sec. RI: 0.77 - Left THIBODEAUX: Normal waveform PSV: 60 cm/sec. RI: 0.70. Previously 73 cm/sec. RI: 0.77 HEPATIC VEINS: -Left: Patent with triphasic waveform. -Middle: Patent with triphasic waveform. -Right: Patent with triphasic waveform. IVC: Patent with normal, phasic wave form. IMPRESSION: Patent hepatic vasculature with appropriately directed flow. Mildly increased multiloculated ascites. Stripper Apprentice: [facility] Transcribe Date/Time: Oct 29 2024 3:46P Dictated by : MARIO YU MD This examination was interpreted and the report reviewed and electronically signed by: AMARILIS ADAMSON MD on Oct 29 2024 4:11PM EST US ABD LIVER VASCULAR TRANSPLANT () Result Date: 10/29/2024 * * *Final Report* * * DATE OF EXAM: Oct 29 2024 3:00PM [facility] 0685 - US ABD LIVER VASCULAR TRANSPLANT/ PROCEDURE REASON: Liver transplant * * * * Physician Interpretation * * * * EXAMINATION: LIVER VASCULAR ULTRASOUND WITH DOPPLER IMAGING CLINICAL HISTORY: Orthotopic liver transplant 09/09/2024 TECHNIQUE: Sonography of the liver with color and spectral Doppler imaging of thehepatic vasculature was performed. Images were obtained and stored in a permanent archive. MQ: USLV_1 COMPARISON: CT 10/24/2024, ultrasound 10/19/2024. RESULT: Sonographic Findings: Pancreas: Normal sonographic appearance. Portions obscured: tail Liver: Echotexture: Normal, homogeneous. Echogenicity: Normal Surface contour: Smooth Lesions: None. Biliary: No intrahepatic biliary duct dilation. Stable pneumobilia. CBD: 0.8 cm at the hilum. Gallbladder: Prior cholecystectomy. Gallbladder fossa partially obscured with drain in place. Right Kidney: No hydronephrosis. Spleen: Craniocaudal length 9.4 cm, normal. There are no splenic lesions. Other: Moderate volume loculated ascites, increased from prior ultrasound 10/19/2024 HEPATIC VASCULATURE: PORTAL SYSTEM: -Splenic Vein: Patent with antegrade flow (towards the liver). -Main PV: Patent with phasic antegrade flow (towards liver). 44-58 cm/sec. Previously 38-53 cm/sec. -Right anterior PV: Patent with phasic antegrade flow (towards liver). 25.5 cm/sec. Previously 30 cm/sec -Right posterior PV: Patent with phasic antegrade flow (towards liver). 30 cm/sec. Previously 32 cm/sec -Left PV: Patent with phasic antegrade flow (towards liver). 19cm/sec. Previously 26 cm/sec HEPATIC ARTERIES: - Main THIBODEAUX: Normal waveform PSV: 51-57 cm/sec. RI: 0.74-0.75. Previously 70-84 cm/sec. RI: 0.76-0.80 - Right anterior THIBODEAUX: Normal waveform PSV: 59 cm/sec.RI: 0.68. Previously 66 cm/sec. RI: 0.72 - Right posterior THIBODEAUX: Normal waveform PSV: 81 cm/sec. RI: 0.74. Previously 66 cm/sec. RI: 0.77 - Left THIBODEAUX: Normal waveform PSV: 60 cm/sec. RI: 0.70. Rbrvobpiiw51 cm/sec. RI: 0.77 HEPATIC VEINS: -Left: Patent with triphasic waveform. -Middle: Patent with triphasic waveform. -Right: Patent with triphasic waveform. IVC: Patent with normal, phasic wave form. IMPRESSION: Patent hepatic vasculature with appropriately directed flow. Mildly increased multiloculated ascites. Stripper Apprentice: [facility] Transcribe Date/Time: Oct 29 2024 3:46P Dictated by : MARIO YU MD This examination was interpreted and the report reviewed and electronically signed by: AMARILIS ADAMSON MD on Oct 29 2024 4:11PM EST MRI BRAIN WO IVCON Result Date: 10/24/2024 * * *Final Report* * * DATE OF EXAM: Oct 24 2024 7:06PM [facility] [id number] - MRI BRAIN WO IVCON / PROCEDURE REASON: Dizziness, non-specific * * * * Physician Interpretation * * * * EXAMINATION: MRI BRAIN WO IVCON CLINICAL HISTORY: Dizziness TECHNIQUE: Routine noncontrast MRI protocol including diffusion images. MQ: MRBWO_2 COMPARISON: Head CT 10/07/2024 RESULT: Acute Change: There is no evidence of restricted diffusion to suggest an acute infarct. Hemorrhage: No evidence of prior parenchymal hemorrhage on the susceptibility weighted images. Mass Lesion/ Mass Effect: No evidence of an intracranial mass or extra-axial fluid collection. No mass effect. Chronic Change: Extensive patchy confluent T2 FLAIR hyperintense lesions are present throughout the bilateral supratentorial brainand alejandra compatible with sequela of chronic small vessel disease. Moderate diffuse brain volume loss. Ventricles: No evidence of hydrocephalus. Skull Base: Hypothalamic and pituitary region are grossly normal. Craniocervical junction is normal. No significant marrow replacement process. Vasculature: Major intracranial arterial structures, and dural venous sinuses show typical flow void, suggesting patency by spin echo criteria. Other: The visualized paranasal sinuses and mastoid air cells are cl ear. The orbits and extracranial soft tissues are unremarkable. IMPRESSION: No evidence of acute intracranial abnormality. Extensive patchy confluent T2 FLAIR hyperintense lesions are present throughout the bilateral supratentorial brain and alejandra compatible with sequela of chronic small vessel disease. Stripper Apprentice: [facility] Transcribe Date/Time: Oct 24 2024 7:06P Dictated by : JASON ZURITA MD This examination was interpreted and the report reviewed and electronically signed by: JASON ZURITA MD on Oct 24 2024 7:10PM EST CT ABD/PEL W IVCON Result Date: 10/24/2024 * * *Final Report* * * DATE OF EXAM: Oct 24 2024 6:28PM [facility] 0530 - CT ABD/PEL W IVCON / PROCEDURE REASON: Abdominal pain, acute, nonlocalized * * * * Physician Interpretation * * * * EXAMINATION: CT ABDOMEN AND PELVIS WITH IV CONTRAST CLINICAL HISTORY: 69-year-old man with a history of liver transplant on 09/09/2024, now with vomiting and abdominal pain/distention TECHNIQUE: CT of the abdomen and pelvis was performed using standard technique, scanning from just above the dome of the diaphragm to the symphysis pubis. MQ: CTAP_3 Contrast: Central IV: 100 ml of Omnipaque 350: ml of CT Radiation dose: Integrated Dose-length product (DLP) for this visit = 402 mGy*cm. CT Dose Reduction Employed: mAs-kVp adjusted based on patient size-age COMPARISON: 10/16/2024 and 10/18/2024 RESULT: Liver: Liver transplant. Mildly decreasing conspicuity and size of ill-defined low-attenuation lesion in the right hepatic lobe (i.e. 3:22), likely resolving infarction/infection. Biliary: No bile duct dilation. Common bile duct stent in place with expected pneumobilia. Cholecystectomy. Residual 4.1 x 2.0 cm collection in the gallbladder fossa (3:45), previously measuring 3.9 x 2.8 cm when measured similarly. Previously well-positioned drain within this collection seen on CT 10/18/2024, hasbeen slightly retracted in the interval, with the pigtail now uncurled, with several of the sideholes now within the liver parenchyma. Spleen: No mass. No splenomegaly. Pancreas: No mass or duct dilation. Adrenals: No mass. Kidneys: No mass, calculus or hydronephrosis. GI tract: A single loop of jejunum in the left upper quadrant measures up to 5 cm, without transition point, and enteric contrast reaching the terminal ileum/cecum.. Colonic diverticulosis, without acute diverticulitis. NG/OG tube terminating at the gastric body, sidehole subdiaphragmatic. Lymph nodes: No abdominal or pelvic lymphadenopathy. Mesentery/Peritoneum: Moderate volume ascites, slightly increased since 10/18/2024. Mild diffuse peritoneal thickening/enhancement. No loculated fluid collection otherwise. Retroperitoneum: No mass. Vasculature: - Abdominal aorta and iliac arteries: Atherosclerotic calcifications without aneurysm. - Celiac and SMA: Patent without stenosis. - Portal venous system (SMV, splenic vein, portal vein and branches): Patent. - Hepatic veins: Patent. Pelvis: No mass or fluid collection. Right inguinal hernia containing ascitic fluid. Bones/Soft Tissues: Severe compression deformities of T12 and L1, unchanged. Diffuse body wall edema. Lower thorax: Moderate left pleural effusion. Small right loculated hydropneumothorax, unchanged. Bibasilar atelectasis. Localizer images: No additional findings. IMPRESSION: Further mild interval decrease in size of gallbladder fossa collection. Of note, the previously well-positioned percutaneous drain is now slightly retracted, with a few of the sideholes now within the hepatic parenchyma. Slightly increased moderate volume ascites, with new peritoneal thi ckening/enhancement, suggestive of peritonitis, perhaps bile peritonitis given somewhat malpositioned percutaneous drain within the known biliary leak. Stripper Apprentice: [facility] Transcribe Date/Time: Oct 24 2024 6:39P Dictated by : MIKE OATES MD This examination was interpreted and the report reviewed and electronically signed by: MIKE OATES MD on Oct 24 2024 6:50PM EST IR VASCULAR ACCESS TEAM PICC INSERTION RADIO Result Date: 10/24/2024 Eileen Hernandez RN 10/24/2024 11:49 AM PICC NURSE INSERTION NOTE DATE OF PROCEDURE: October 24, 2024 TIME OF PROCEDURE: 1100 ORDERING PHYSICIAN: Brandi Alarcon INFORMED CONSENT: Obtained per hospital policy. INDICATION FOR LINE PLACEMENT: COPAT CONDITION OF LINE PLACEMENT: Sterile PRIMARY PROCEDURALIST: Ceci Beauchamp RN MARKETING DESIGNER: Lili Hernandez RN PRE-PROCEDURE REVIEW ALLERGIES No Known Allergies Known History of Upper Venous Thrombosis: No Known History of Permanent Pacemaker or Automated Implanted Cardiac Device: No Previous Breast Surgery of Lymph Node Dissection: No Estimated Glomerular Filtration Rate Date Value Ref Range Status 10/24/2024 95 >=60 mL/min/1.73m Final Comment: Estimated Glomerular Filtration Rate (eGFR) is calculated using the 2020 CKD-EPI creatinine equation. This equation utilizes serum creatinine, sex, and age as parameters. The creatinine assay has traceable calibration to isotope dilution-mass spectrometry. Refer to KDIGO guidelines for clinical interpretation. In patients with unstable renal function, e.g. those with acute kidney injury, the eGFR may not accurately reflect actual GFR. eGFR- Date Value Ref Range Status 10/17/2016 >60 Final History of Renal Disease: CKD, GFR 92 Ultrasound Assessment Complete: Yes PROCEDURE NARRATIVE SAFE PRACTICE Hand Hygiene per Hospital Policy: Yes Skin Preparation Unit Dose Applicator Used: Chloraprep (CHG + alcohol), allowed to dry. Procedure Surface Cleansed with Antimicrobial Wipes: Yes BarriersUsed by Proceduralist and all Assisting Personnel: Yes UNIVERSAL PROTOCOL / SAFETY CHECKLIST Procedure to be Performed: peripherally inserted central catheter Sign In: A Moment of CARE was completed.Appropriate PPE (Personal Protective Equipment) worn by all providers involved with the procedure. Special equipment not required. Patient/Surrogate Stated/Verified: Patient name, Date of , Relevant allergies, and The intended procedure Time Out: Relevant labs, photos, and/or imaging studies have been reviewed. Intended patient and procedure match the source document(s) (e.g. consent, H&P, associated studies [imaging, pathology]) match the intended patient and procedure. Consent obtained and matches the intended procedure. Yes. Correct side/site has been marked and visible. Medications required for this procedure are verified. Fire risk assessed and is not applicable. Implants: arenot applicable. Sign Out: Specimens not collected. All instruments, equipment, possible retained foreign bodies are accounted for. Yes. The post-procedure plan of care has been communicated to the patient or surrogate and to patient's multidisciplinary team (including bedside nurse for hospitalizedpatients). CATHETER PLACEMENT Brand: bard Lot: [id number] Number of Lumens: 1 Type of PICC: Power Injectable PICC Lumen Size: 4 Burundian PLACEMENT TECHNIQUE Lidocaine: Yes, Lidocaine 1% Volume 4 mL Subcutaneous Modified Seldinger Technique Used to Place Line via the Right Basilic Ultrasound Guidance: Yes Number of Attempts at Insertion: 2 Ensured control of guidewire during all aspects of the procedure: Yes Accounted for entire guidewire upon removal: Yes Internal Length: 39 cm External Length: 0 cm Trim Length: 39 cm Mid-Arm Circumference: 25 centimeters Post Insertion Pain Level Related to Proce dure: 0 Action Taken to Address Pain: None needed Verified Placement: Blood return and flushes withease and Tip location system or device indicates the tip is located in the SVC/CAJ. Line was Flushed with 20 mL normal saline Line Secured with: Securement device Sterile Dressing Applied and Dated: Yes Sterile Caps on all Ports Prior to Leaving Procedure Area: Yes, Disinfection caps applied SPECIMENS: None COMPLICATIONS: Patient with baseline nausea/vomiting upon arrival to room. Bedside RN at bedside to provide medication. Patient positioned for comfort. Patient Education Materials: Left at bedside [facility] Central Line Insertion checklist was utilized during this procedure. QUESTIONS or PROBLEMS: Page [phone] SIGNATURE: Eileen Hernandez RN PATIENT NAME: Charles Blandon DATE: 2024 TIME: 11:18 AM PAGER/CONTACT PHONE: XR ABDOMEN 1V SUPINE Result Date: 10/24/2024 * * *Final Report* * * DATE OF EXAM: Oct 24 2024 5:36AM [facility] 5289 - XR ABDOMEN 1V SUPINE / PROCEDURE REASON: Nausea/Vomiting * * * * Physician Interpretation * * * * ABDOMEN, 1 VIEW 10/24/2024 CLINICAL INFORMATION: Nausea/Vomiting. TECHNIQUE: Supine frontal view, 1 image(s) COMPARISON: 10/19/2024 RESULT: See impression. IMPRESSION: Lines, tubes, and devices: Right upper quadrant TIPS, cholecystostomy tube, and surgical clips. Bowel: Gastric gaseous distention. Scattered gas-filled nondilated small bowel and colon. Stripper Apprentice: [facility] Transcribe Date/Time: Oct 24 2024 8:25A Dictated by : AUTUMN CORRALES MD This exam ination was interpreted and the report reviewed and electronically signed by: AUTUMN CORRALES MD on Oct 24 2024 8:26AM EST US DOPPLER COMPLETE Result Date: 10/19/2024 * * *Final Report* * * DATE OF EXAM: Oct 19 2024 4:12PM U 1033 - US DOPPLER COMPLETE / PROCEDURE REASON: Liver transplant * * * * Physician Interpretation * * * * EXAMINATION: LIVER VASCULAR ULTRASOUND WITH DOPPLER IMAGING CLINICAL HISTORY: 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 Images were obtained and stored in a permanent archive. MQ: USLV_1 COMPARISON: CT 10/18/2024, liver ultrasound 10/08/2024 RESULT: Sonographic Findings: Pancreas: Normal sonographic appearance. Portions obscured: tail Liver: Echotexture: Normal, homogeneous. Echogenicity: Normal Surface contour: Smooth Lesions: None. Biliary: No intrahepatic biliary duct dilation. Pneumobilia, stable. CBD: 0.7 cm at the hilum. CBD stent present. Gallbladder: Absent Right Kidney: No hydronephrosis. Spleen: Craniocaudal length 9.3 cm, normal. There are no splenic lesions. Other: Small volume loculated abdominal ascites. HEPATIC VASCULATURE: PORTAL SYSTEM: - Splenic Vein: Patent with antegrade flow (towards the liver). -Main PV: Patent with phasic antegrade flow (towards liver). 38-53 cm/sec -Right anterior PV: Patent with phasic antegrade flow (towards liver). 38 cm/sec -Right posterior PV: Patent with phasic antegrade flow (towards liver). 32 cm/sec -Left PV: Patent with phasic antegrade flow (towards liver). 26 cm/sec HEPATIC ARTERIES: - Main THIBODEAUX: Normal waveform PSV: 70-84 cm/sec. RI: 0.76-0.8 - Right anterior THIBODEAUX: Normal waveform PSV: 66 cm/sec. RI: 0.72 - Right posterior THIBODEAUX: Normal waveform PSV: 66 cm/sec. RI: 0.77 - Left THIBODEAUX: Normal waveform PSV: 73 cm/sec. RI: 0.77 HEPATIC VEINS: -Left: Patent with triphasic waveform. -Middle: Patent with triphasic waveform. -Right: Patent with triphasic waveform. IVC: Patent with normal, phasic wave form. IMPRESSION: Patent hepatic vasculature with appropriately directed flow. 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 Small volume loculated ascites. No splenomegaly. Stable pneumobilia Stripper Apprentice: [facility] Transcribe Date/Time: Oct 19 2024 4:18P Dictated by : STEWART BROUSSARD MD This examination was interpreted and the report reviewed and electronically signed by: AKIKO PHAN MD on Oct 19 2024 4:29PM EST ABD LIVER VASCULAR TRANSPLANT (MC) Result Date: 10/19/2024 * * *Final Report* * * DATE OF EXAM: Oct 19 2024 3:55PM [facility] 0685 - US ABD LIVER VASCULAR TRANSPLANT / PROCEDURE REASON: Liver transplant * * * * Physician Interpretation * * * * EXAMINATION: LIVER VASCULAR ULTRASOUND WITH DOPPLER IMAGING CLINICAL HISTORY: 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 Images were obtained and stored in a permanent archive. MQ: USLV_1 COMPARISON: CT 10/18/2024, liver ultrasound 10/08/2024 RESULT: Sonographic Findings: Pancreas: Normal sonographic appearance. Portions obscured: tail Liver: Echotexture: Normal, homogeneous. Echogenicity: Normal Surface contour: Smooth Lesions: None. Biliary: No intrahepatic biliary duct dilation. Pneumobilia, stable. CBD: 0.7 cm at the hilum. CBD stent present. Gallbladder: Absent RightKidney: No hydronephrosis. Spleen: Craniocaudal length 9.3 cm, normal. There are no splenic lesions. Other: Small volume loculated abdominal ascites. HEPATIC VASCULATURE: PORTAL SYSTEM: - Splenic Vein: Patent with antegrade flow (towards the liver). -Main PV: Patent with phasic antegrade flow (towards liver). 38-53 cm/sec -Right anterior PV: Patent with phasic antegrade flow (towards liver). 38 cm/sec -Right posterior PV: Patent with phasic antegrade flow (towards liver). 32 cm/sec -Left PV: Dunlap nt with phasic antegrade flow (towards liver). 26 cm/sec HEPATIC ARTERIES: - Main THIBODEAUX: Normal waveform PSV: 70-84 cm/sec. RI: 0.76-0.8 - Right anterior THIBODEAUX: Normal waveform PSV: 66 cm/sec. RI: 0.72 - Right posterior THIBODEAUX: Normal waveform PSV: 66 cm/sec. RI: 0.77 - Left THIBODEAUX: Normal waveform PSV: 73 cm/sec. RI: 0.77 HEPATIC VEINS: -Left: Patent with triphasic waveform. -Middle: Patent with triphasic waveform. -Right: Patent with triphasic waveform. IVC: Patent with normal, phasic wave form. IMPRESSION: Patent hepatic vasculature with appropriately directed flow. 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 Small volume loculated ascites. No splenomegaly. Stable pneumobilia Stripper Apprentice: [facility] Transcribe Date/Time: Oct 19 2024 4:18P Dictated by : STEWART BROUSSARD MD This examination was interpreted and the report reviewed and electronically signed by: AKIKO PHAN MD on Oct 19 2024 4:29PM EST XR ABDOMEN 1V SUPINE Result Date: 10/19/2024 * * *Final Report* * * DATE OF EXAM: Oct 19 2024 2:22PM [facility] 5289 - XR ABDOMEN 1V SUPINE / PROCEDURE REASON: Abdominal pain * * * * Physician Interpretation * * * * EXAM: KUB ABDOMEN. CLINICAL INFORMATION: Abdominal pain TECHNIQUE: Supine abdomen, 2 image(s) COMPARISON: 10/07/2024, CT dated 10/18/2024 RESULT: See Impression. IMPRESSION: Support lines and tubes: RIGHT mid abdominal catheter present. CBD stent present. Bowelgas pattern: Mildly dilated colon with the transverse colon measuring up to 6.2 cm. This is likely ileus. No significant small bowel dilatation. Calcifications: RIGHT upper quadrant surgical clips. Tr anscriptionist: [facility] Transcribe Date/Time: Oct 19 2024 3:20P Dictated by : AKIKO PHAN MD This examination was interpreted and the report reviewed and electronically signed by: AKIKO PHAN MD onOct 19 2024 3:24PM EST CT ABDOMEN WO IVCON Result Date: 10/18/2024 * * *Final Report* * * DATE OF EXAM: Oct 18 2024 3:27PM [facility] 0534 - CT ABDOMEN WO IVCON / PROCEDURE REASON: Post-operative / post-procedure assessment, symptomatic * * * * Physician Interpretation * * * * EXAMINATION: CT ABDOMEN WITHOUT IV CONTRAST CLINICAL HISTORY: Abdominal pain, post drain placement.Patient is status post liver transplant. Status post drainage of RIGHT hydrothorax on 09/09/2024 TECHNIQUE: Non-IV contrast imaging of the abdomen was performed using standard technique, scanning from just above the dome of the diaphragm to the iliac crest. Unenhanced imaging is limited for the evaluation of some intra-abdominal pathology. MQ: CTAbdWO_3 Contrast: IV: None Oral: 300 ml of Omni 84316-12aq diluted with water CT Radiation dose: Integrated Dose-length product (DLP) for this visit =208 mGy*cm. CT Dose Reduction Employed: Automated exposure control (AEC) COMPARISON: 10/16/2024 RESU LT: Liver: Unenhanced liver allograft is unremarkable. Previously seen geographic area of low-attenuation in segment 4/8 is less well seen without IV contrast, but is overall stable. No definite new hepatic focal lesions on this study. Biliary: Pneumobilia. Biliary stent in place. There has been interval placement of a percutaneous drainage catheter with decompression of the gallbladder fossa collection. Currently the collection measures 2.6 x 1.4 cm (3:46), previously 5.2 x 3.8 cm. Spleen: No splenomegaly. Pancreas: Unremarkable. Adrenals: No mass. Kidneys: Previously administered excreted co ntrast in both collecting systems. No hydronephrosis. GI Tract: No bowel dilation. Lymph Nodes: No lymphadenopathy. Mesentery/peritoneum: Moderate abdominal ascites, similar in volume as compared to prior study. No new focal drainable fluid collections. Retroperitoneum: No mass. Vasculature: No aortic aneurysm. Atherosclerotic calcifications. Patency of hepatic vasculature cannot be established on this unenhanced study. Bones/Soft Tissues: Degenerative changes. Remote healed rib fractures. Lower thorax: Essentially stable RIGHT hydropneumothorax and moderate LEFT pleural effusion. Localizer images: No additional findings. IMPRESSION: Interval placement of a percutaneous drainage catheter with decompression of the gallbladder fossa collection. Moderate volume abdominal ascites, similar to prior study. Essentially stable RIGHT hydropneumothorax and moderate LEFT pleural effusion. Stripper Apprentice: [facility] Transcribe Date/Time: Oct 18 2024 4:19P Dictated by : AKIKO PHAN MD This examination was interpreted and the report reviewed and electronically signed by: AKIKO PHAN MD on Oct 18 2024 4:28PM EST US IMAGING GUIDED DRAIN PLACEMENT PERITONEAL/RETROPERITD Result Date: 10/17/2024 * * *Final Report* * * DATE OF EXAM: Oct 17 2024 5:03PM U 1170 - US DRBrenda PLACE PERIT/RETROP FL BI / PROCEDURE REASON: Liver transplant * * * * Physician Interpretation * * * * PROCEDURE PERFORMED: ULTRASOUND GUIDED DRAIN PLACEMENT PRE-PROCEDURE DIAGNOSIS: Abdominal fluid collection(s) POST- PROCEDURE DIAGNOSIS: Same as pre-procedure diagnosis INDICATION FOR PROCEDURE: gallbladder fossa collection RELEVANT PRIOR STUDIES: CT 10/16/2024 STAFF RADIOLOGIST: Dr. Julio MARKETING DESIGNER(S):Dr. Boss CONSENT: The risks, benefits, treatment options, potential complications and personnelinvolved were discussed with the patient. All questions were answered and consent was obtained. The patient indicated willingness to proceed. The staff physician personally verified consent. TIME OUT: A time out was performed immediately prior to procedure start with the nursing, anesthesia and interventional team, correctly identifying the patient name, date of , procedure, anatomy (including marking of site and side), patient position, procedure consent form, relevant diagnostic and radiology test results, antibiotic administration, safety precautions, and procedure-specific equipment needs. RESULT: PROCEDURE: After performing the time out, the abdominal fluid collection was localized with ultrasound, images were obtained and archived. The right upper quadrant was prepped and draped in the usual sterile fashion. Under ultrasound guidance, an 18 gauge trochar needle was advanced into the collection using a transhepatic approach. Then, a guide wire was inserted and the tract was serially dilated to 9 [place]ian. A 10 [place]undian locking pigtail catheter was then inserted. Its position was confirmed and then it was locked. A sample was aspirated. The catheter was sutured to the skin with monofilament suture and attached to a J-P bulb drain. The procedure was performed by the: attending radiologist, with an insurance account assistant. The attending radiologist performed the following procedural activities: Supervised entire procedure ANESTHESIA/SEDATION: Conscious sedation: Versed: 1.0 mg IV Fentanyl: 50 mcg IV Local anesthesia: Lidocaine 1%: 17 cc Vital signs were monitored by the nurse. START TIME/TIMEOUT TIME: 16:35 END TIME: 17:00 INTRA- SERVICE (SEDATION) TIME: 30 minutes PATIENT MONITORING: The staff physician personally supervised and directed an independent trained observer who assisted in monitoring the patient?s level of consciousness and physiological status throughout the procedure. SIGNIFICANT COMPLICATIONS: None MINOR COMPLICATIONS: None SIGN-OUT DISCUSSION: Completed ESTIMATED BLOOD LOSS: Trace SPECIMENS: 40 cc of cloudy bilious fluid aspirated and samples sent to microbiology . Sample also sent for bilirubin and cell count. DRAIN(S): 10 [place]ian pigtail drain IMPRESSION: ULTRASOUND GUIDED TRANSHEPATIC DRAIN PLACEMENT IN GALLBLADDER FOSSA COLLECTION. Stripper Apprentice: [facility] Transcribe Date/Time: Oct 17 2024 5:16P Dictated by : AMARILIS BOSS MD This examination was interpreted and the report reviewed and electronically signed by: [facility]24[facility] ECHO Result Date: 10/17/2024 Echocardiography Report: Transthoracic Echo Main [facility] Bedside Date of service: 10/17/2024 11:11:17 AM ANALYST Ordering physician: BRANDI ALARCON Exam indication: Shortness of Breath Technologist: Ria Weaver Interpreting physician: Lena Whalen MD PATIENT: Name: MR. CHARLES BLANDON : 1955 Age: 69 years Gender: M History of hypertension and chronic kidney disease. Previous cardiovascular interventions: Liver transplant Primary rhythm: sinus. Height: 175.30 cm BSA: 1.82 m??? Weight: 67.80 kg BMI: 22.1 kg/m??? Heart rate 78 bpm Blood pressure 136/79 mmHgTechnically difficult exam due to body habitus and suboptimal positioning. Color Doppler was utilized to interrogate the cardiac valves assessed and spectral Doppler was utilized to determine the flow velocities and pressure gradients reported in this exam. MEASUREMENTS: Value Indexed Normal LV ID (diastole) 4.8 cm (2D) 2.62 cm/m??? LV ID (systole) 3.1 cm (2D) 1.73 cm/m??? IVS, leaflet tips 1.1 cm (2D) Posterior wall thickness 1.1 cm (2D) Left ventricular mass 190 g (2D) 105 g/m??? Ejection Fraction 55 % (visual est.) EF > 52 FINDINGS: LEFT VENTRICLE The left ventricle is normal in size. Left ventricular systolic function is normal. Left ventricular diastolic function was not evaluated due to limited. Mitral annular lateral E/e': 5.7. Mitral annular septal E/e': 9.3. Wall Motion: All scored segments are normal. RIGHT VENTRICLE Estimated right ventricular systolic pressure is not reported due to an insufficient tricuspid regurgitation signal. Estimated right atrial pressure is 8 mmHg based on IVC assessment. RIGHT ATRIUM Inferior Vena Cava: The inferior vena cava appears normal measuring 1.5 cm. The vessel decreases less than 50 percent with inspiration. MITRAL VALVE There is t race mitral valve regurgitation. There is mild thickening. The pressure half time is 54 msec. The peak mitral E/A ratio is 0.99. The average mitral E/e' ratio is 7.5. The mitral flow deceleration time is 187 msec. TRICUSPID VALVE There is trace tricuspid valve regurgitation. There is no thickening. AORTIC VALVE There is no aortic valve regurgitation. Tricuspid aortic valve. There is mild thickening. There is mild calcification. The peak gradient is 6 mmHg (peak velocity = 118.1 cm/s). PULMONICVALVE The pulmonic valve was not seen or not interrogated. There is trace pulmonic valve regurgitation. PERICARDIUM There is no pericardial effusion. There is a right pleural effusion. There is an epi cardial fat pad. CONCLUSIONS: - Technically difficult exam due to body habitus and suboptimal positioning. - Exam indication: Shortness of Breath - The left ventricle is normal in size. Left ventricular systolic function is normal. EF = 55 ??? 5% (visual est.) - Aortic sclerosis. - Exam was compared with the prior echocardiographic exam performed on 09/21/2024. Right pleural effusion seen. * * * Final * * * [employer] : [id number]^[employer]^SI^SUID CT ABD/PEL W IVCON Result Date: 10/16/2024 * * *Final Report* * * DATE OF EXAM: Oct 16 2024 12:48PM [facility] 0530 - CT ABD/PEL W IVCON / PROCEDURE REASON: Abnormal ERCP * * * * Physician Interpretation * * * * EXAMINATION: CT ABDOMEN AND PELVIS WITH IV CONTRAST CLINICAL HISTORY: EtOH cirrhosis/HCC, s/p DCD-OLT and drainage of right hydrothorax on 09/09/2024. Admitted for worsening abdominal distention, ascites. Concern for possible portal vein thrombus noncontrast CT. Underwent ERCP 10/15/2024 which demonstrated postoperative stricture, possible contained bile leak from the cystic duct, biliary pus/stones. TECHNIQUE: CT of the abdomen and pelvis was performed using standard technique, scanning from just above the dome of the diaphragm to the symphysis pubis. MQ: CTAP_3 Contrast: IV: 100 ml of Omnipaque 350 Oral: 300 ml of Omni 350 10-25ml diluted with water CT Radiation dose: Integrated Dose-length product (DLP) forthis visit = 639 mGy*cm. CT Dose Reduction Employed: mAs-kVp adjusted based on patient size-age COMPARISON: CT abdomen/pelvis 10/07/2024 RESULT: Liver: * Liver transplant. Mild periportal edema. * Slight interval decreased size of geographic area of low-attenuation in segments 4/8 since 10/07/2024 counting for differences of technique. Possibly resolving infarct versus inflammation. No new hepatic lesions. Biliary: * Cholecystectomy. 5.2 x 3.8 cm collection in the gallbladder fossa (3:59) containing small amount of contrast, likely corresponding with leak identified on recent ERCP. * CBD stent in place. * No biliary duct dilation. Trace pneumobilia, presumably postoperative. Spleen: No mass. No splenomegaly. Pancreas: No mass or duct dilation. Adrenals: No mass. Kidneys: No mass, calculus or hydronephrosis. GI tract: Few borderline and mildly dilated fluid and gas filled loops of small bowel without discrete transition point. No wall thickening. Diverticulosis. Lymph nodes: No abdominalor pelvic lymphadenopathy. Mesentery/Peritoneum: Moderate volume ascites. No drainable collections.Diffuse mesenteric edema. Retroperitoneum: No mass. Vasculature: - Abdominal aorta and iliac arteries: Atherosclerotic calcifications without aneurysm. - Celiac and SMA: Patent without stenosis. - Portal venous system (SMV, splenic vein, portal vein and branches): Patent. - Hepatic veins: Patent. - Other: Hepatic artery and anastomosis appears patent. Pelvis: Moderate ascites. No organized collections. No mass. Bones/Soft Tissues: Unchanged [id number] fractures. No acute osseous abnormalities. Ascites within right inguinal hernia. Diffuse bilateral edema. Lower thorax: Stable bilateral pleural effusions, partially loculated on the right with hydropneumothorax. Localizer images: No additional findings. IMPRESSION: 5.2 cm collection in the gallbladder fossa with small amount of contrast, likely contained bile leak. Stable to slightly decreased size of geographic low-attenuation in the right hepatic lobe, possibly inflammatory or evolving infarct. Moderate volume abdominopelvic ascites. Stable right hydropneumothorax and bilateral pleural effusions. Stripper Apprentice: SR[facility] Transcribe Date/Time: Oct 16 2024 1:06P Dictated by : JIM ANAYA MD This examination was interpreted and the report reviewed and electronically signed by: EVERTON JULIO MD on Oct 16 2024 2:07PM EST ERCP Result Date: 10/15/2024 Q3 Patient Name: Charles Blandon Procedure Date: 10/15/2024 3:44 PM Date of : 1955 Admit Type: Inpatient Age: 69 Gender: Male Note Status: Finalized Attending MD: Elizabeth Dixon MD, [id number] Procedure: ERCP Indications: Elevated alkaline phosphatase, Post liver transplant assessment Providers: Elizabeth Dixon MD, Bebo Barker MD (Fellow), Kathy Alberts MD (1st Assisting Doctor) Patient Profile: This is a 69 year old male. Refer to note in patient chart for documentation of history and physical. Referring Physician: Xuan Melendrez (Referring MD) Medicines: General Anesthesia Complications: No immediate complications. Requesting Provider: Procedure: Pre- Anesthesia Assessment: - Prior tothe procedure, a History and Physical was performed, and patient medications and allergies were reviewed. The patient's tolerance of previous anesthesia was also reviewed. The risks and benefits of th e procedure and the sedation options and risks were discussed with the patient. All questions wereanswered, and informed consent was obtained. Prior Anticoagulants: The patient has taken no anticoagulant or antiplatelet agents. ASA Grade Assessment: III - A patient with severe systemic disease. After reviewing the risks and benefits, the patient was deemed in satisfactory condition to undergo the procedure. After obtaining informed consent, the scope was passed under direct vision. Throughoutthe procedure, the patient's blood pressure, pulse, and oxygen saturations were monitored continuously. The Duodenoscope was introduced through the mouth, and advanced to the duodenum and used to inject contrast into the bile duct. The ERCP was accomplished without difficulty. The patient toleratedthe procedure well. Moderate Sedation: General anesthesia was administered by the anesthesia team. Findings: A contestant coordinator film of the abdomen was obtained. Surgical clips, consistent with a previous cholec ystectomy and known liver transplant, were seen in the area of the right upper quadrant of the abdomen. The major papilla was adjacent to a diverticulum. The bile duct was deeply cannulated with the traction (standard) sphincterotome. Contrast was injected. I personally interpreted the bile duct images. Ductal flow of contrast was adequate. Image quality was excellent. Contrast extended to the main bile duct. Contrast extended to the bifurcation. Contrast extended to the hepatic ducts. The common hepatic duct contained filling defect(s) thought to be a stone and sludge. Extravasation of contrast originating from the donor cystic duct remnant was observed consistent with a leak that appearedcontained. The recipient cystic duct remnant was normal. The common hepatic duct contained a singlemoderate stenosis 10 mm in length. Biliary sphincterotomy was made with a monofilament traction (standard) sphincterotome using ERBE electrocautery. There was no post-sphincterotomy bleeding. The biliary tree was swept with an 11.5 mm balloon starting at the bifurcation. Pus and debris was swept from the duct. Large stone proximal to the stenosis could not be removed. One 10 mm by 10 cm covered metal stent was placed 9 cm into the common bile duct. Bile flowed through the stent. The stent was in good position. Impression: - The major papilla was adjacent to a diverticulum. - Filling defectsconsistent with stones and sludge was seen on the cholangiogram. - A single moderate biliary stricture was found in the common hepatic duct. The stricture was post-surgical. - A bile leak was found eminating from the donor cystic duct remnant which appeared to be contained. - A biliary sphincterotomy was performed. - The biliary tree was swept and pus and debris were found. Large stone proximal to the stenosis could not be removed. - One covered metal stent was placed into the common bile duct. Estimated Blood Loss: Estimated blood loss: none. Recommendation: - [facility]. - Resume previous diet. - Repeat ERCP in 1 month for stent removal and cholangioscopy with EHL. Procedure Code(s): --- Professional --- 73402, Endoscopic retrograde cholangiopancreatography (ERCP); with placement of endoscopic stent into biliary or pancreatic duct, including pre- and post-dilation and guide wire passage, when performed, including sphincterotomy, when performed, each stent [id number], Endoscopic retrograde cholangiopancreatography (ERCP); with removal of calculi/debris from biliary/pancreatic duct(s) 94886, Endoscopic catheterization of the biliary ductal system, radiological supervision and interpretation Diagnosis Code(s): --- Professional --- K91.89, Other postprocedural complications and disorders of digestive system K83.1, Obstruction of bile duct K83.9, Disease of biliary tract, unspecified R74.8, Abnormal levels of other serum enzymes Z09, Encounter for follow-up examination after completed treatment for conditions other than malignant neoplasm Z94.4, Liver transplant status R93.2, Abnormal findings on diagnostic imaging of liver and biliarytract CPT copyright 2020 [employer]. All rights reserved. Attending Participation: I was present and participated during the entire procedure, including non-david portions. Scope In: 4:11:32 PM Scope Out: 4:36:21 PM MD Elizabeth Bacon MD 10/15/2024 5:13:53 PM This report has been signed electronically by MD Kathy Reynolds MD Number of Addenda: 0 Note Initiated On: 10/15/2024 3:44 PM XR CHEST 1V FRONTAL PORT Result Date: 10/15/2024 * * *Final Report* * * DATE OF EXAM: Oct 14 2024 7:18PM [id number] - XR CHEST 1V FRONTAL PORT / PROCEDURE REASON: Post-operative/post-procedure assessment * * * * Physician Interpretation * * * * EXAMINATION: CHEST RADIOGRAPH (PORTABLE SINGLE VIEW AP) Exam Date/Time: 10/14/2024 7:18 PM Clinical History: Post-operative/post-procedure assessment MQ: XCPMC_6 Comparison: 1 day prior RESULT: Lines, tubes, and devices: The patient is rotated to the right. Lungs and pleura: Moderateright pleural effusion is noted, possibly redistributed. Also noted is small left pleural effusion.There is central pulmonary venous congestion without overt edema. Patchy opacities are noted at thelung bases, likely related to atelectasis. No definite pneumothorax is noted. Cardiomediastinal silhouette: Stable cardiomediastinal silhouette. Calcification of the aortic arch is noted with tortuosity/ectasia of the descending thoracic aorta. Other: . IMPRESSION: See result. Stripper Apprentice: P[facility] Transcribe Date/Time: Oct 15 2024 7:37A Dictated by :BULMARO WINN MD This examination was interpreted and the report reviewed and electronically signed by: BULMARO WINN MD on Oct 15 2024 7:38AM EST XR CHEST 1V FRONTAL PORT Result Date: 10/11/2024 * * *Final Report* * * DATE OF EXAM: Oct 11 2024 11:23AM [facility] [id number] - XR CHEST 1V FRONTAL PORT / PROCEDURE REASON: Shortness of breath * * * * Physician Interpretation * * * * EXAMINATION: CHEST RADIOGRAPH (PORTABLE SINGLE VIEW AP) Exam Date/Time: 10/11/2024 11:23 AM Clinical History: Shortness of breath MQ: XCPMC_6 Comparison: 10/06/2024 RESULT: Lines, tubes, and devices: None.Lungs and pleura: A loculated medium-sized RIGHT related to atelectasis/consolidation adjacent lung. A trace LEFT pleural effusion is present with adjacent atelectasis. No substantial pneumothorax isidentified. Cardiomediastinal silhouette: The cardiomediastinal silhouette remains enlarged, unchanged. There are atherosclerotic calcifications in the thoracic aorta. Other: There are multiple remote right-sided rib fractures. IMPRESSION: See result Stripper Apprentice: SRINI Transcribe Date/Time: Oct 11 2024 11:40A Dictated by : PAWAN LUNA MD This examination was interpreted and the report reviewed and electronically signedby: PAWAN LUNA MD on Oct 11 2024 11:42AM EST CT CHEST WO IVCON Result Date: 10/08/2024 * * *Final Report* * * DATE OF EXAM: Oct 08 2024 1:05PM 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 Technique: Spiral CT acquisition of the chest from the thoracic inlet to the upper abdomen without contrast. MQ: CTCWO_6 CT Radiation dose: Integrated Dose-length product (DLP) for this visit = 171 mGy*cm CT Dose Reduction Employed: Automated exposure control (AEC) C omparison: CT chest, 09/01/2024 RESULT: Limitations: None. Lines, tubes, and devices: None. Lung parenchyma , pleural spaces and airways: Interval development of a loculated moderate-sized right hydropneumothorax. The pneumothorax component and air-fluid levels are new although the volume of pleural effusion has decreased since the prior (to be correlated with any recent thoracentesis/pleural fluid drainage procedures). Increase in volume of low- attenuation, medium-sized left pleural effusion without any left pneumothorax. Interval reexpansion of previously collapsed portions of the right middle and lower lobes. Persistent subpleural atelectasis in the posterior right lower lobe. Subpleuralcurvilinear consolidative opacity in the right middle lobe is possibly related to rounded atelectasis (image 89, Agfa series 3). Mild peribronchial thickening and interlobular septal thickening in the right lung. Mild worsening of dependent atelectasis in the posterior left lung base. A 4 mm superior segment LLL nodule along the left major fissure is new and possibly represents atelectasis (image36). Mild curvilinear atelectasis in the inferior lingula. The trachea and major bronchi are patent. There is luminal effacement of subsegmental bronchi in the bilateral lower lobes/posterior lung bases, right more than left. Lower neck, lymph nodes, and mediastinum: The imaged thyroid gland is unremarkable. No supraclavicular or axillary lymphadenopathy. Multiple subcentimeter and a few borderline enlarged mediastinal lymph nodes have increased in size compared to the previous CT. For example,an upper right paratracheal node which previously measured 4-5 mm in short axis now measures 9- 10 mm in short axis (image 41, Agfa series 4) and a lower right paratracheal lymph node which previouslymeasured 5-6 mm in short axis now measures 10-11 mm in short axis (image 65, Agfa series 4). The upper thoracic esophagus is minimally patulous with an air-fluid level. The GE junction is collapsed. Heart, pericardium, and thoracic vessels: The aortic root appears mildly dilated although accurate measurement is limited given cardiac pulsation and noncontrast technique. Mild aortic root calcifications noted. The ascending thoracic aorta measures 3.7-3.8 cm in its mid segment, upper limits normal. The aortic arch and descending thoracic aorta are normal in caliber with mild atherosclerotic calci fications. The main and central pulmonary arteries are normal in caliber. There are severe diffuse coronary calcifications with probable coronary artery stents although the present scan is not optimized for coronary assessment. The cardiac chambers are normal in size. Increase in volume of a small pericardial effusion which now measures up to 10 mm anteriorly (image 128, Agfa series 4). Bones and soft tissues: No destructive bone lesion. Diffuse osteopenia with compression fracture/collapse of the T11 and T12 (counting from top). Mild loss of height in multiple lower thoracic vertebrae, such as the T7 and T8. Remote fractures of multiple right ribs with callus formation (anterior third through sixth, anterolateral seventh, lateral eighth ribs). Remote fracture of the lateral left seventh and eighth ribs and posterior left 10th rib. Moderate bilateral gynecomastia. Mild bilateral flank edema. Upper abdomen: Postsurgical changes of liver transplant with upper abdominal ascites. Please review abdominal CT report from 10/07/2024 for details. Localizer images: No additional findings. IMPRESSION: Moderate-sized loculated right hydropneumothorax; the pneumothorax component is new while the pleural fluid as decreased in volume compared to the earlier CT from 09/01/2024. Correlate with history of recent thoracentesis or pleural drainage procedures. Interval increase in volume of a low-attenuation, medium-sized left pleural effusion. Improved aeration of previously atelectatic portions of the right lung with persistent atelectasis in the posterior right base and probable roundedatelectasis in the subpleural right middle lobe. Worsening atelectasis in the posterior left lung base. Superimposed pneumonia/aspiration within the atelectatic portions of the bilateral lung bases cannot be excluded. Asymmetric mild/smooth peribronchial and septal thickening in the right lung is suggestive of nonspecific perilymphatic/venous edema. Interval increase in size of a few borderline enlarged intrathoracic lymph nodes which are nonspecific, potentially reactive although follow-up is suggested. Interval development of a small anterior pericardial effusion. Diffuse osteopenia with collapsed compression of the T11 and T12 vertebrae, as well as multiple sequential bilateral rib fractures. Stripper Apprentice: PSCB Transcribe Date/Time: Oct 08 2024 1:26P Dictated by : RUPA COVINGTON MD This examination was interpreted and the report reviewed and electronically signed by: RUPA COVINGTON MD on Oct 08 2024 1:53PM EST XR ABDOMEN 1 VWS Result Date: 10/08/2024 * * *Final Report* * * DATE OF EXAM: Oct 07 2024 10:49AM [id number] - XR ABDOMEN 1V SUPINE / PROCEDURE REASON: ABD PAIN, FEVER, NO RECENT SURGERY * * * * Physician Interpretation * * * * Clinical Information: Abdominal pain, abdominal distention Supine views of the abdomen were obtained. Comparison: 10/06/2024 Gaseous distention of small bowel loops appears stable to mildly improved. No abnormal abdominal masses are identified. No pathologic calcifications. No acute bony abnormalities are seen. IMPRESSION: Stable to mildly improved gaseous distention of small bowel loops may indicate improving ileus or improving low grade/partial obstruction. Stripper Apprentice: [facility] Transcribe Date/Time: 2024 1:06P Dictated by : AMARILIS MACK MD This examination was interpreted and the report reviewed and electronically signed by: AMARILIS MACK MD on Oct 08 2024 1:08PM EST XR ABDOMEN 1V SUPINE Result Date: 10/08/2024 * * *Final Report* * * DATE OF EXAM: Oct 07 2024 10:49AM [id number] - XR ABDOMEN 1V SUPINE / PROCEDURE REASON: ABD PAIN, FEVER, NO RECENT SURGERY * * * * Physician Interpretation * * * * Clinical Information: Abdominal pain, abdominal distention Supine views of the abdomen were obtained. Comparison: 10/06/2024 Gaseous distention of small bowel loops appears stable to mildly improved. No abnormal abdominal masses are identified. No pathologic calcifications. No acute bony abnormalities are seen. IMPRESSION: Stable to mildly improved gaseous distention of small bowel loops may indicate improving ileus or improving low grade/partial obstruction. Stripper Apprentice: [facility] Transcribe Date/Time: 2024 1:06P Dictated by : AMARILIS MACK MD This examination was interpreted and the report reviewed and electronically signed by: AMARILIS MACK MD on Oct 08 2024 1:08PM EST US DOPPLER COMPLETE Result Date: 10/08/2024 * * *Final Report* * * DATE OF EXAM: Oct 08 2024 7:45AM U [id number] - US DOPPLER COMPLETE / PROCEDURE REASON: Liver transplant * * * * Physician Interpretation * * * * EXAMINATION:LIVER VASCULAR ULTRASOUND WITH DOPPLER IMAGING CLINICAL HISTORY: Old T5 2625 with concern for portal vein thrombosis on CT 10/07/2024 TECHNIQUE: Sonography of the liver with color and spectral Dopplerimaging of the hepatic vasculature was performed. Images were obtained and stored in a permanent archive. MQ: USLV_1 COMPARISON: CT 10/07/2024, liver vascular ultrasound 09/20/2024 RESULT: Sonographic Findings: Pancreas: Normal sonographic appearance. Portions obscured: tail Liver: Echotexture: Normal, homogeneous. Echogenicity: Similar heterogeneously hypoechoic parenchyma within the right hepatic dome, related to ischemia or operative handling. Surface contour: Smooth Lesions: None. Biliary: No intrahepatic biliary duct dilation. CBD: 1.1 cm at the hilum. Circumferential wall thickening of the extrahepatic CBD containing debris. Gallbladder: Right Kidney: No hydronephrosis. Spleen: Craniocaudal length 11 cm, normal. There are no splenic lesions. Other: Moderate volume ascites. With the patient supine and the transducer oriented perpendicular to the abdominal wall, an X was marked on the skin overlying the right lower quadrant. The following measurements were obtained: (1) Depth to enter the fluid collection: 2.0 cm (2) Depth to mid fluid collection: 4.1 cm 5.9 x 2.5 x 3.0 cm gallbladder fossa postoperative collection, mildly decreased from prior. HEPATIC VASCULATURE: PORTAL SYSTEM: - Splenic Vein: Patent with antegrade flow (towards the liver). -Main PV: Patent with phasic antegrade flow (towards liver). 57-68 cm/sec -Right anterior PV: Patent with phasic antegrade flow (towards liver). 33 cm/sec -Right posterior PV: Patent with phasic antegrade flow (towards liver). 28 cm/sec -Left PV: Patent with phasic antegrade flow (towards liver). 16 cm/sec HEPATIC ARTERIES: - Main THIBODEAUX: Normal waveform PSV: 66-68 cm/sec. RI: 0.78-0.82 - Right anterior THIBODEAUX: Normal waveform PSV: 45 cm/sec. RI: 0.73 - Right posterior THIBODEAUX: Normal waveform PSV: 61 cm/sec. RI: 0.73 - Left THIBODEAUX: Normal waveform PSV: 68 cm/sec. RI: 0.68 HEPATIC VEINS: -Left: Patent with triphasic waveform. -Middle: Patent with triphasic waveform. -Right: Patent with triphasic waveform. IVC: Patent with normal, phasic waveform. IMPRESSION: Patent hepatic vasculature with appropriately directed flow. CBD wall thickening containing debris. Recommend further evaluation with MR pancreas/biliary. Otherwise stable sonographic appearance of the transplant liver. Moderate volume ascites, marked in the right lower quadrant. ACTIONABLE RESULT: FOLLOW-UP Acuity: Actionable Findings: Pancreas/Biliary Routing Code: PB_1 Recommendation: MRI PANCREAS/BILIARY WO/W IV CONTRAST Time Frame: At the discretion of the clinical team. COMMUNICATION: Results will be communicated with the ordering provider via [employer] staff message or phone message by [facility] within 2 business days of report finalization. --END OF FINDING-- Stripper Apprentice: PSC[facility] Transcribe Date/Time: Oct 08 2024 8:41A Dictated by : RAQUEL WILKES MD This examination was interpreted and the report reviewed and electronically signed by: RAQUEL WILKES MD on Oct 08 2024 9:38AM EST US ABD LIVER VASCULAR Result Date: 10/08/2024 * * *Final Report* * * DATE OF EXAM: Oct 08 2024 7:30AM U [id number] - US ABD LIVER VASCULAR / PROCEDURE REASON: Liver transplant * * * * Physician Interpretation * * * * EXAMINATION: LIVER VASCULAR ULTRASOUND WITH DOPPLER IMAGING CLINICAL HISTORY: Old T5 2625 with concern for portal vein thrombosis on CT 10/07/2024 TECHNIQUE: Sonography of the liver with color and spectral Doppler imaging of the hepatic vasculature was performed. Images were obtained and stored in a permanent archive. MQ: USLV_1 COMPARISON: CT 10/07/2024, liver vascular ultrasound 09/20/2024 RESULT: SonographicFindings: Pancreas: Normal sonographic appearance. Portions obscured: tail Liver: Echotexture: Normal, homogeneous. Echogenicity: Similar heterogeneously hypoechoic parenchyma within the right hepatic dome, related to ischemia or operative handling. Surface contour: Smooth Lesions: None. Biliary: No intrahepatic biliary duct dilation. CBD: 1.1 cm at the hilum. Circumferential wall thickening of the extrahepatic CBD containing debris. Gallbladder: Right Kidney: No hydronephrosis. Spleen: Craniocaudal length 11 cm, normal. There are no splenic lesions. Other: Moderate volume ascites. With the patient supine and the transducer oriented perpendicular to the abdominal wall, an X was marked onthe skin overlying the right lower quadrant. The following measurements were obtained: (1) Depth to enter the fluid collection: 2.0 cm (2) Depth to mid fluid collection: 4.1 cm 5.9 x 2.5 x 3.0 cm gallbladder fossa postoperative collection, mildly decreased from prior. HEPATIC VASCULATURE: PORTAL SYSTEM: -Splenic Vein: Patent with antegrade flow (towards the liver). -Main PV: Patent with phasic antegrade flow (towards liver). 57-68 cm/sec -Right anterior PV: Patent with phasic antegrade flow (tow ards liver). 33 cm/sec -Right posterior PV: Patent with phasic antegrade flow (towards liver). 28 cm/sec -Left PV: Patent with phasic antegrade flow (towards liver). 16 cm/sec HEPATIC ARTERIES: - Main THIBODEAUX: Normal waveform PSV: 66-68 cm/sec. RI: 0.78-0.82 - Right anterior THIBODEAUX: Normal waveform PSV: 45 cm/sec. RI: 0.73 - Right posterior THIBODEAUX: Normal waveform PSV: 61 cm/sec. RI: 0.73 - Left THIBODEAUX: Normal waveform PSV: 68 cm/sec. RI: 0.68 HEPATIC VEINS: -Left: Patent with triphasic waveform. -Middle: Patent with triphasic waveform. -Right: Patent with triphasic waveform. IVC: Patent with normal, phasic wave form. IMPRESSION: Patent hepatic vasculature with appropriately directed flow. CBD wall thickening containing debris. Recommend further evaluation with MR pancreas/biliary. Otherwise stable sonographic appearance of the transplant liver. Moderate volume ascites, marked in the right lower quadrant. ACTIONABLE RESULT: FOLLOW-UP Acuity: Actionable Findings: Pancreas/Biliary Routing Code: PB_1 Recommendation: MRI PANCREAS/BILIARY WO/W IV CONTRAST Time Frame: At the discretion of the clinical team. COMMUNICATION: Results will be communicated with the ordering provider via [employer] staff message or phone message by [facility] within 2 business days of report finalization. --END OF FINDING-- Stripper Apprentice: PSCB Transcribe Date/Time: Oct 08 2024 8:41A Dictated by : RAQUEL WILKES MD This examination was interpreted and the report reviewed and electronically signed by: RAQUEL WILKES MD on Oct 08 2024 9:38AM EST CT ABDOMEN PELVIS WO CONTRAST Result Date: 10/07/2024 * * *Final Report* * * DATE OF EXAM: Oct 07 2024 3:00PM [facility] 0531 - CT ABD/PEL WO IVCON / PROCEDURE REASON: ILEUS, ASCITES * * * * Physician Interpretation * * * * EXAMINATION: CT ABDOMEN AND PELVIS WITHOUT IV CONTRAST CLINICAL HISTORY: Ileus/ascites. 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 TECHNIQUE: Non-IV contrast imaging of the abdomen and pelvis was performed using standard technique, scanning from just above the dome of the diaphragm to the symphysis pubis. Unenhanced imaging is limited for the evaluation of some intra-abdominal and pelvic pathology. MQ: CTAPWO_3 Contrast: IV: None CT Radiation dose: Integrated Dose-length product (DLP) for this visit = 263 mGy*cm. CT Dose Red uction Employed: Automated exposure control(AEC) and iterative recon COMPARISON: Ultrasound Dated 09/20/2024 and MRI dated 09/02/2024 RESULT: Abdomen / Pelvis: Liver: * Post OLT appearances again noted. * There is apparent interval luminal distention and hyperattenuation involving the main portal and right and left portal veins, concerning for acute portal venous thrombosis. * Persisting infiltrating hypodense area involving segments 8 and 4A (301/18). * No interval focal hepatic mass, allowingfor noncontrast study. Biliary: Gallbladder is surgically absent. No definite biliary dilatation noted. Spleen: No splenomegaly. Pancreas: Unremarkable. Adrenals: No mass. Kidneys: No calculus, hydronephrosis or finding to suggest a cyst or mass in the unenhanced kidney. GI Tract: The stomach is underdistended. Mildly distended small bowel loops, to a maximum of 2.9 cm (301/74), with normal caliber small bowel loops in the right lower quadrant. Gas-distended transverse colon. Scattered colonic diverticula. These appearances may represent partial small bowel obstruction. No evidence of extraluminal air. Lymph Nodes: No lymphadenopathy. Mesentery/peritoneum: Small to moderate volume ascites with generalized peritoneal stranding. Retroperitoneum: No mass. Vasculature: Suboptimally evaluated in the absence of IV contrast. Mild aortoiliac atherosclerotic changes, without aneurysm. Portal vein findings, as above. Pelvis: Moderate volume ascites. Urinary bladder, prostate and seminal vesicles are unremarkable. Bones/Soft Tissues: Stable loss of height of the T12 vertebral body with retropulsion. Interval anterior wedging of the T11 vertebral body, without significant retropulsion. Old rib fractures, with nonunion on the left (301/3). Osteopenia. Ascitic fluid is seen extending into a right inguinal hernia. Lower thorax: Moderate-sized bilateral pleural effusions, loculated on the right with bibasal atelectasis. Apparent loculated air within the right pleural cavity, partially visualized (301/1). This also appears to be present on the previous chest x-ray from 10/06/2024. Coronary calcifications. Trace pericardial fluid. Localizer images: No additional findings. IMPRESSION: 1. Appearances concerning for acute portal vein thrombosis in this patient with historyof recent OLT. Evaluation is suboptimal in the absence of IV contrast. Recommend correlation with ultrasound Doppler for confirmation. 2. Mildly distended small bowel loops with normal caliber small bowel in the right lower quadrant. Gas-distended transverse colon. Findings may represent low-grade,partial SBO. No extraluminal air noted. 3. Moderate volume ascites again seen. Moderate volume freeflowing left pleural effusion. 4. Apparent loculated right hydropneumothorax. Correlation with CT of the chest may be obtained for more definite evaluation. 5. Interval anterior wedging of the T11 vertebral body. COMMUNICATION: Communicated with DAVID CRUZ on 10/07/2024 3:54 PM via verbal communication. Stripper Apprentice: SRINI Transcribe Date/Time: Oct 07 2024 3:17P Dictated by : JOSE GUADALUPE MURPHY MD This examination was interpreted and the report reviewed and electronically signed by: JOSE GUADALUPE MURPHY MD on Oct 07 2024 4:01PM EST CT ABD/PEL WO IVCON Result Date: 10/07/2024 * * *Final Report* * * DATE OF EXAM: Oct 07 2024 3:00PM [facility] 0531 - CT ABD/PEL WO IVCON / PROCEDURE REASON: ILEUS, ASCITES * * * * Physician Interpretation * * * * EXAMINATION: CT ABDOMEN AND PELVIS WITHOUT IV CONTRAST CLINICAL HISTORY: Ileus/ascites. 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 TECHNIQUE: Non-IV contrast imaging of the abdomen and pelvis was performed using standard technique, scanning from just above the dome of the diaphragm to the symphysis pubis. Unenhanced imaging is limited for the evaluation of some intra-abdominal and pelvic pathology. MQ: CTAPWO_3 Contrast: IV: None CT Radiation dose: Integrated Dose-length product (DLP) for this visit = 263 mGy*cm. CT Dose Red uction Employed: Automated exposure control(AEC) and iterative recon COMPARISON: Ultrasound Dated 09/20/2024 and MRI dated 09/02/2024 RESULT: Abdomen / Pelvis: Liver: * Post OLT appearances again noted. * There is apparent interval luminal distention and hyperattenuation involving the main portal and right and left portal veins, concerning for acute portal venous thrombosis. * Persisting infiltrating hypodense area involving segments 8 and 4A (301/18). * No interval focal hepatic mass, allowingfor noncontrast study. Biliary: Gallbladder is surgically absent. No definite biliary dilatation noted. Spleen: No splenomegaly. Pancreas: Unremarkable. Adrenals: No mass. Kidneys: No calculus, hydronephrosis or finding to suggest a cyst or mass in the unenhanced kidney. GI Tract: The stomach is underdistended. Mildly distended small bowel loops, to a maximum of 2.9 cm (301/74), with normal caliber small bowel loops in the right lower quadrant. Gas-distended transverse colon. Scattered colonic diverticula. These appearances may represent partial small bowel obstruction. No evidence of extraluminal air. Lymph Nodes: No lymphadenopathy. Mesentery/peritoneum: Small to moderate volume ascites with generalized peritoneal stranding. Retroperitoneum: No mass. Vasculature: Suboptimally evaluated in the absence of IV contrast. Mild aortoiliac atherosclerotic changes, without aneurysm. Portal vein findings, as above. Pelvis: Moderate volume ascites. Urinary bladder, prostate and seminal vesicles are unremarkable. Bones/Soft Tissues: Stable loss of height of the T12 vertebral body with retropulsion. Interval anterior wedging of the T11 vertebral body, without significant retropulsion. Old rib fractures, with nonunion on the left (301/3). Osteopenia. Ascitic fluid is seen extending into a right inguinal hernia. Lower thorax: Moderate-sized bilateral pleural effusions, loculated on the right with bibasal atelectasis. Apparent loculated air within the right pleural cavity, partially visualized (301/1). This also appears to be present on the previous chest x-ray from 10/06/2024. Coronary calcifications. Trace pericardial fluid. Localizer images: No additional findings. IMPRESSION: 1. Appearances concerning for acute portal vein thrombosis in this patient with history of recent OLT. Evaluation is suboptimal in the absence of IV contrast. Recommend correlation with ultrasound Dopplerfor confirmation. 2. Mildly distended small bowel loops with normal caliber small bowel in the right lower quadrant. Gas-distended transverse colon. Findings may represent low-grade, partial SBO. No extraluminal air noted. 3. Moderate volume ascites again seen. Moderate volume free flowing left pleural effusion. 4. Apparent loculated right hydropneumothorax. Correlation with CT of the chest may be obtained for more definite evaluation. 5. Interval anterior wedging of the T11 vertebral body. COMMUNICATION: Communicated with DAVIDYOLI CRUZ on 10/07/2024 3:54 PM via verbal communication. Stripper Apprentice: SRINI Transcribe Date/Time: Oct 07 2024 3:17P Dictated by : JOSE GUADALUPE MURPHY MD This examination was interpreted and the report reviewed and electronically signed by: JOSE GUADALUPE MURPHY MD on Oct 07 2024 4:01PM EST [id number]^ACN CT ABD/PEL WO IVCON Result Date: 10/07/2024 * * *Final Report* * * DATE OF EXAM: Oct 07 2024 3:00PM [facility] 0531 - CT ABD/PEL WO IVCON / PROCEDURE REASON: ILEUS, ASCITES * * * * Physician Interpretation * * * * EXAMINATION: CT ABDOMEN AND PELVIS WITHOUT IV CONTRAST CLINICAL HISTORY: Ileus/ascites. 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 TECHNIQUE: Non-IV contrast imaging of the abdomen and pelvis was performed using standard technique, scanning from just above the dome of the diaphragm to the symphysis pubis. Unenhanced imaging is limited for the evaluation of some intra-abdominal and pelvic pathology. MQ: CTAPWO_3 Contrast: IV: None CT Radiation dose: Integrated Dose-length product (DLP) for this visit = 263 mGy*cm. CT Dose Red uction Employed: Automated exposure control(AEC) and iterative recon COMPARISON: Ultrasound Dated 09/20/2024 and MRI dated 09/02/2024 RESULT: Abdomen / Pelvis: Liver: * Post OLT appearances again noted. * There is apparent interval luminal distention and hyperattenuation involving the main portal and right and left portal veins, concerning for acute portal venous thrombosis. * Persisting infiltrating hypodense area involving segments 8 and 4A (301/18). * No interval focal hepatic mass, allowingfor noncontrast study. Biliary: Gallbladder is surgically absent. No definite biliary dilatation noted. Spleen: No splenomegaly. Pancreas: Unremarkable. Adrenals: No mass. Kidneys: No calculus, hydronephrosis or finding to suggest a cyst or mass in the unenhanced kidney. GI Tract: The stomach is underdistended. Mildly distended small bowel loops, to a maximum of 2.9 cm (301/74), with normal caliber small bowel loops in the right lower quadrant. Gas-distended transverse colon. Scattered colonic diverticula. These appearances may represent partial small bowel obstruction. No evidence of extraluminal air. Lymph Nodes: No lymphadenopathy. Mesentery/peritoneum: Small to moderate volume ascites with generalized peritoneal stranding. Retroperitoneum: No mass. Vasculature: Suboptimally evaluated in the absence of IV contrast. Mild aortoiliac atherosclerotic changes, without aneurysm. Portal vein findings, as above. Pelvis: Moderate volume ascites. Urinary bladder, prostate and seminal vesicles are unremarkable. Bones/Soft Tissues: Stable loss of height of the T12 vertebral body with retropulsion. Interval anterior wedging of the T11 vertebral body, without significant retropulsion. Old rib fractures, with nonunion on the left (301/3). Osteopenia. Ascitic fluid is seen extending into a right inguinal hernia. Lower thorax: Moderate-sized bilateral pleural effusions, loculated on the right with bibasal atelectasis. Apparent loculated air within the right pleural cavity, partially visualized (301/1). This also appears to be present on the previous chest x-ray from 10/06/2024. Coronary calcifications. Trace pericardial fluid. Localizer images: No additional findings. IMPRESSION: 1. Appearances concerning for acute portal vein thrombosis in this patient with historyof recent OLT. Evaluation is suboptimal in the absence of IV contrast. Recommend correlation with ultrasound Doppler for confirmation. 2. Mildly distended small bowel loops with normal caliber small bowel in the right lower quadrant. Gas-distended transverse colon. Findings may represent low-grade,partial SBO. No extraluminal air noted. 3. Moderate volume ascites again seen. Moderate volume freeflowing left pleural effusion. 4. Apparent loculated right hydropneumothorax. Correlation with CT of the chest may be obtained for more definite evaluation. 5. Interval anterior wedging of the T11 vertebral body. COMMUNICATION: Communicated with DAVID CRUZ on 10/07/2024 3:54 PM via verbal communication. Stripper Apprentice: SRNII Transcribe Date/Time: Oct 07 2024 3:17P Dictated by : JOSE GUADALUPE MURPHY MD This examination was interpreted and the report reviewed and electronically signed by: JOSE GUADALUPE MURPHY MD on Oct 07 2024 4:01PM EST CT BRAIN WO IVCON Result Date: 10/07/2024 * * *Final Report* * * DATE OF EXAM: Oct 07 2024 3:00PM [facility] 0504 - CT BRAIN WO IVCON / PROCEDURE REASON: slurred speech * * * * Physician Interpretation * * * * EXAMINATION: CT BRAIN WO IVCON CLINICAL HISTORY: Slurred speech TECHNIQUE: Serial axial images without IV contrast were obtained from the vertex to the foramen magnum. MQ: CTBWO_3 CT Radiation dose: Integrated Dose-Le ngth Product (DLP) for this visit = 820 mGy*cm CT Dose Reduction Employed: Automated exposure control(AEC) and iterative recon COMPARISON: Head CT dated 08/27/2024, 08/23/2024 RESULT: Post-operative change: None. Acute change: No evidence of an acute infarct or other acute parenchymal process. Hemorrhage: No evidence of acute intracranial hemorrhage. ECASS hemorrhagic transformation score: Not Applicable Mass Lesion / Mass Effect: There is no evidence of an intracranial mass or extraaxial fluidcollection. No significant mass effect. Chronic change: Scattered patchy foci of low attenuation are present within the supratentorial white matter, a nonspecific finding that most commonly represents mild small vessel disease. Parenchyma:There is moderate generalized volume loss. Ventricles: Ventricular enlargement concordant with the degree of parenchymal volume loss. Paranasal sinuses and skull base: The visualized paranasal sinuses are grossly clear. The skull base and imaged soft tissues are unremarkable. Localizer images: No additional findings. IMPRESSION: NO CT EVIDENCE OF ACUTE INTRACRANIAL PROCESS. NO SIGNIFICANT INTERVAL CHANGE SINCE 08/27/2024. Stripper Apprentice: SRINI Transcribe Date/Time: Oct 07 2024 3:20P Dictated by : ROSAURA CERVANTES MD This examination was interpreted and the report reviewed and electronically signed by: ROSAURA CERVANTES MD on Oct 07 2024 3:22PM EST [id number]^ACN CT BRAIN WO IVCON Result Date: 10/07/2024 * * *Final Report* * * DATE OF EXAM: Oct 07 2024 3:00PM [facility] 0504 - CT BRAIN WO IVCON / PROCEDURE REASON: slurred speech * * * * Physician Interpretation * * * * EXAMINATION: CT BRAIN WO IVCON CLINICAL HISTORY: Slurred speech TECHNIQUE: Serial axial images without IV contrast were obtained from the vertex to the foramen magnum. MQ: CTBWO_3 CT Radiation dose: Integrated Dose-Le ngth Product (DLP) for this visit = 820 mGy*cm CT Dose Reduction Employed: Automated exposure control(AEC) and iterative recon COMPARISON: Head CT dated 08/27/2024, 08/23/2024 RESULT: Post-operative change: None. Acute change: No evidence of an acute infarct or other acute parenchymal process. Hemorrhage: No evidence of acute intracranial hemorrhage. ECASS hemorrhagic transformation score: Not Applicable Mass Lesion / Mass Effect: There is no evidence of an intracranial mass or extraaxial fluidcollection. No significant mass effect. Chronic change: Scattered patchy foci of low attenuation are present within the supratentorial white matter, a nonspecific finding that most commonly represents mild small vessel disease. Parenchyma:There is moderate generalized volume loss. Ventricles: Ventricular enlargement concordant with the degree of parenchymal volume loss. Paranasal sinuses and skull base: The visualized paranasal sinuses are grossly clear. The skull base and imaged soft tissues are unremarkable. Localizer images: No additional findings. IMPRESSION: NO CT EVIDENCE OF ACUTE INTRACRANIAL PROCESS. NO SIGNIFICANT INTERVAL CHANGE SINCE 08/27/2024. Stripper Apprentice: [facility] Transcribe Date/Time: Oct 07 2024 3:20P Dictated by : ROSAURA CERVANTES MD This examination was interpreted and the report reviewed and electronically signed by: ROSAURA CERVANTES MD on Oct 07 2024 3:22PM EST US abdomen limited Result Date: 10/07/2024 * * *Final Report* * * DATE OF EXAM: Oct 07 2024 10:35AM [id number] - US ABDOMEN LTD / PROCEDURE REASON: asictes * * * * Physician Interpretation * * * * Clinical information: Ascites Ascites survey was performed. Images were obtained and stored in a permanent archive. Ascites pr esent within all four quadrants, with moderate fluid volume within the right lower quadrant. Smaller volume ascites within the right upper quadrant, left upper quadrant, and left lower quadrant. Impression: Ascites, largest volume within the right lower quadrant Stripper Apprentice: [facility] Transcribe Date/Time: Oct 07 2024 10:50A Dictated by : AMARILIS MACK MD This examination was interpreted and thereport reviewed and electronically signed by: AMARILIS MACK MD on Oct 07 2024 10:51AM EST XR ABDOMEN 1 VWS Result Date: 10/06/2024 * * *Final Report* * * DATE OF EXAM: Oct 06 2024 2:59PM [id number] - XR ABDOMEN 1V SUPINE / PROCEDURE REASON: SOB, VS WNL * * * * Physician Interpretation * * * * EXAMINATION: XR ABDOMEN 1V SUPINE, XR CHEST 1V FRONTAL CLINICAL HISTORY: Shortness of breath Comparison: Abdominal x-ray October 03, 2024 RESULT: Lines, tubes, and devices: None Lungs and pleura: Bilateral pleural effusions, right greater than left and right lower lobe consolidation versus atelectasis. Cardiomediastinal silhouette: The cardiomediastinal silhouette is within normal limits given positioning and technique. Bowel: Dilated loops of small bowel up to 4.7 cm. Air is seen in the right colon. Bones/Soft tissues: Surgical clips right upper quadrant of the abdomen. IMPRESSION: 1. Bilateral pleural effusions, right greater than left and right lower lobe consolidation versus atelectasis. 2. Nonspecific dilation of loops of small bowel up to 4.7 cm. This could represent ileus or obstruction. Stripper Apprentice: [facility] Transcribe Date/Time: Oct 06 2024 4:21P Dictatedby : THERESA ORANTES MD This examination was interpreted and the report reviewed and electronically signed by: THERESA ORANTES MD on Oct 06 2024 4:23PM EST XR CHEST 1 VWS Result Date: 10/06/2024 * * *Final Report* * * DATE OF EXAM: Oct 06 2024 2:59PM [id number] - XR CHEST 1V FRONTAL / PROCEDURE REASON: SOB, stable VS * * * * Physician Interpretation * * * * EXAMINATION: XR ABDOMEN 1V SUPINE, XR CHEST 1V FRONTAL CLINICAL HISTORY: Shortness of breath Comparison: Abdominalx-ray October 03, 2024 RESULT: Lines, tubes, and devices: None Lungs and pleura: Bilateral pleural effusions, right greater than left and right lower lobe consolidation versus atelectasis. Cardiomediastinal silhouette: The cardiomediastinal silhouette is within normal limits given positioning and technique. Bowel: Dilated loops of small bowel up to 4.7 cm. Air is seen in the right colon. Bones/Soft tissues: Surgical clips right upper quadrant of the abdomen. IMPRESSION: 1. Bilateral pleural effusions, right greater than left and right lower lobe consolidation versus atelectasis. 2. Nonspecific dilation of loops of small bowel up to 4.7 cm. This could represent ileus or obstruction. Stripper Apprentice: [facility] Transcribe Date/Time: Oct 06 2024 4:21P Dictatedby : THERESA ORANTES MD This examination was interpreted and the report reviewed and electronically signed by: THERESA ORANTES MD on Oct 06 2024 4:23PM EST XR ABDOMEN 1V SUPINE Result Date: 10/06/2024 * * *Final Report* * * DATE OF EXAM: Oct 06 2024 2:59PM [id number] - XR ABDOMEN 1V SUPINE / PROCEDURE REASON: SOB, VS WNL * * * * Physician Interpretation * * * * EXAMINATION: XR ABDOMEN 1V SUPINE, XR CHEST 1V FRONTAL CLINICAL HISTORY: Shortness of breath Comparison: Abdominal x-ray October 03, 2024 RESULT: Lines, tubes, and devices: None Lungs and pleura: Bilateral pleural effusions, right greater than left and right lower lobe consolidation versus atelectasis. Cardiomediastinal silhouette: The cardiomediastinal silhouette is within normal limits given positioning and technique. Bowel: Dilated loops of small bowel up to 4.7 cm. Air is seen in the right colon. Bones/Soft tissues: Surgical clips right upper quadrant of the abdomen. IMPRESSION: 1. Bilateral pleural effusions, right greater than left and right lower lobe consolidation versus atelectasis. 2. Nonspecific dilation of loops of small bowel up to 4.7 cm. This could represent ileus or obstruction. Stripper Apprentice: [facility] Transcribe Date/Time: Oct 06 2024 4:21P Dictatedby : THERESA ORANTES MD This examination was interpreted and the report reviewed and electronically signed by: THERESA ORANTES MD on Oct 06 2024 4:23PM EST US abdomen limited Result Date: 10/06/2024 * * *Final Report* * * DATE OF EXAM: Oct 06 2024 12:59PM [id number] - US ABDOMEN LTD / PROCEDURE REASON: distended abdomen/ascities survey * * * * Physician Interpretation * * * *ASCITES SURVEY INDICATION: Ascites COMPARISON: 09/20/2024 US liver vascular TECHNIQUE: Real-time grayscale ultrasound imaging of the 4 quadrants was performed. Images were obtained and stored in a permanent archive. RESULT: See impression. IMPRESSION: Small volume of intraperitoneal ascites. Stripper Apprentice: [employer] Transcribe Date/Time: Oct 06 2024 2:02P Dictated by : DANIEL LACY MD This examination was interpreted and the report reviewed and electronically signed by: DANIEL LACY MD on Oct 06 2024 2:03PM EST XR foot right 3+ vws Result Date: 10/05/2024 * * *Final Report* * * DATE OF EXAM: Oct 05 2024 2:07PM [id number] [id number] - XR FOOT 3V AP/LAT/OBL RT / PROCEDURE REASON: pain in big toe * * * * Physician Interpretation * * * * EXAMINATION: XR FOOT 3V AP/LAT/OBL RT CLINICAL HISTORY: pain in big toe TECHNOLOGIST PROVIDED HISTORY: pain in big toe TECHNIQUE: XR FOOT 3V AP/LAT/OBL RT Laterality: RIGHT Number of different views (projections): 3 M: XB_1 COMPARISON: None available. RESULT: No acute fracture or dislocation. Mild first MTPand scattered interphalangeal joint space narrowing. The joint space are otherwise maintained. Small plantar spur. Vascular calcifications. Diffuse soft tissue edema. IMPRESSION: No acute osseous abnormality. Soft tissue edema. Stripper Apprentice: [employer] Transcribe Date/Time: Oct 05 2024 3:09P Dictated by : ROLANDO BENAVIDES DO This examination was interpreted and the report reviewed and electronically signed by: WARREN EASLEY MD on Oct 05 2024 3:17PM EST XR FOOT GENERAL 3V AP/LAT/OBL RIGHT Result Date: 10/05/2024 * * *Final Report* * * DATE OF EXAM: Oct 05 2024 2:07PM [id number] [id number] - XR FOOT 3V AP/LAT/OBL RT / PROCEDURE REASON: pain in big toe * * * * Physician Interpretation * * * * EXAMINATION: XR FOOT 3V AP/LAT/OBL RT CLINICAL HISTORY: pain in big toe TECHNOLOGIST PROVIDED HISTORY: pain in big toe TECHNIQUE: XR FOOT 3V AP/LAT/OBL RT Laterality: RIGHT Number of different views (projections): 3 M: XB_1 COMPARISON: None available. RESULT: No acute fracture or dislocation. Mild first MTPand scattered interphalangeal joint space narrowing. The joint space are otherwise maintained. Small plantar spur. Vascular calcifications. Diffuse soft tissue edema. IMPRESSION: No acute osseous abnormality. Soft tissue edema. Stripper Apprentice: [employer] Transcribe Date/Time: Oct 05 2024 3:09P Dictated by : ROLANDO BENAVIDES DO This examination was interpreted and the report reviewed and electronically signed by: WARREN EASLEY MD on Oct 05 2024 3:17PM EST DAVID CRUZ DO Interdisciplinary team conference today for which we reviewed and dicussed plan of care for which changes might have been made , refer to my signed attestation for our comprehensive team conference document. Over 50 minutes involved today with team conference interaction, relayed team conference discussionto the patient, face time, floor time and coordination of care. * Chelsea Cunningham MD - 11/04/2024 7:35 PM EDT Nephrology Progress Note Subjective: Subjective Interval History: Charles Blandon intermittent shortness of breath and abdominal distention Patient medications: Reviewed, see medication history. Objective: Objective Vital signs in last 24 hours: Temp: [97 ??F (36.1 ??C)-98 ??F (36.7 ??C)] 98 ??F (36.7 ??C) Pulse: [76-78] 78 Resp: [18] 18 BP: (139-143)/(81-84) 143/81 Intake/Output last 3 shifts: I/O last 3 completed shifts: In: 720 [P.O.:720] Out: 2560 [Drains:60] Intake/Output this shift: I/O this shift: In: 440 [P.O.:440] Out: - Weight: Wt Readings from Last 3 Encounters: 11/03/24 161 lb (73 kg) 10/07/24 164 lb 4.8 oz (74.5 kg) Physical Exam: Chest: Decreased air entry with basal crackles to auscultation, no added sounds Heart: RRR, normal S1, S2 Abdomen: Soft lax, distended abdomen with ascites no HSM, +BS, no tenderness. LL: no edema, distal pulses intact. CONTINUOUS IMPROVEMENT CONSULTANT: Conscious, alert and oriented, no focal motor or sensory deficit. Labs: CBC: Recent Labs Lab Units 11/02/24 0640 WBC k/uL 4.05 RBC AUTO m/uL 2.77* HEMOGLOBIN g/dL 8.3* HEMATOCRIT % 25.9* MCV fL 93.5 PLATELETS AUTO k/uL 570* BMP: Recent Labs Lab Units 11/03/24 0505 SODIUM mmol/L 134* POTASSIUM mmol/L 4.9 CHLORIDE mmol/L 101 CO2 mmol/L 27 BUN mg/dL 8* CREATININE mg/dL 0.87 GLUCOSE mg/dL 103* CALCIUM mg/dL 8.3* ANION GAP mmol/L 6* Additional comments: None Assessment/ Plan: Charles Blandon is a 69 year old male with a past medical history CKD 3 baseline creatinine 1.0-1.1,eGFR 60's-70's, HHT, Tipton's esophagus, and ETOH cirrhosis complicated by portal HTN, ascites, HE, large EV, and recently diagnosed HCC. He was admitted on to [facility] on 08/23 with altered mental status and hyponatremia. He was subsequently listed for liver transplant on 09/04/24. Now s/p DCD-OLT on 09/09/24. Patient was treated for RENATE Cr >2.8, resolved 09/16. Status improved and discharged to [facility] on 09/29. Patient returned to [facility] for admission on 10/07 w increased Shortness of Breath anddiarrhea. Pulmonary consulted and did not recommend thoracentesis but diuresis. Zosyn started for PNA coverage. RVP (+) parainfluenza and supportive care given. Required ERCP 10/15. Stay was complicated by Bile leak, image guided abdominal drain placement into collection with posituve cultures for E.Faecium. Started on IV dapotmycin, ordered until 11/12/24. Developed left pleural effusion requiringdiuresis and thoracentesis on 10/14 as well as gastric gaseous distension and scattered gas filled nondilated small bowel and colon requiring NG tube placement. ECHO on 10/17 showed an EF of 55% with normal LV function. Stay was further complicated by severe back pain, MRI obtained per neurology. 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 Pt discharged to [place] on 10/30. RENATE secondary to prerenal azotemia in setting of hypotension (resolved) on CKD stage 3 Cr stable at baseline, will continue to follow the trend Creatinine 0.8 HTN Currently off antihypertensives, BP well controlled Will continue to follow the trend of BP HFpEF Fluid overload and anasarca Chest x-ray with components of edema Ultrasound abdomen showed moderate ascites Last echo 10/17 with EF 55% Required paracentesis at different occasions last October 30 On lasix 40 mg up to twice a day Given Metolazone 10 mg for 2 days Monitor urine output and daily weight Anemia Hgb 7.9, on MARGO therapy will continue to trend Liver Transplant September 04, 2024 On bactrim and tacrolimus and valcyte Will continue to follow the trend of kidney function Biliary stent infection On daptomycin until 11/13 Hypomagnesemia Given 2 g MagSulfat IV, will continue to follow the trend. Continue scheduled PO mag oxide 800 mg TID Results of MRI brain were discussed with neurology who recommended outpatient followup with Vestibular Neurologist CHELSEA CUNNINGHAM MD Time spent on counseling/coordination of care: 45 Minutes Total time spent with patient: 15 Minutes * David Cruz, - 11/04/2024 3:01 PM EDT [facility] PM&R Progress Note 11/04/2024 ASSESSMENT: Critical Illness Myopathy Metastatic HCC S/p DCD OLT, 09/09 Biliary stricture of transplanted liver Acute blood loss Anemia, PRBC 09/27 (Crossmatch T and B cell weak positive ), 10/26 Parainfluenza pneumonia infection Fluid overload VRE Biliary stent infection Ascites s/p perihepatic collection aspiration and drain placement, 10/17. 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 Functional Bowel Incontinence Protein Calorie Malnutrition Gait Abnormality Ambulatory Dysfunction ADL Dysfunction Debility Cognitive Impairment Constipation Coordination Deficit Spasticity Skin Wound Neuropathic Pain Chronic Pain Balance Deficits PLAN: IM, ID, Nephro, Pulm, Cardio Consult Psychologist consultation and evaluation, Melatonin, Trazodone; remeron Biweekly immunosuppression labs, viral surveillance titre's weekly and biweekly IDT with liver transplant team ATB Daptomycin IV to complete 11/12 Prophylaxis: Acyclovir, Bactrim, Nystatin swish/swallow completes 09/30 Immunosuppression: prograf bid, cellcept bid, prednisone completed 09/30 Midodrine tid to keep BP normal Bowel Program: Miralax, Colace, Senna, Dulcolax Glycemic Control:Lispro Bladder Retraining and eval for high PVR and IC if >300, Flomax Nutritional Support - Adult Diet Regular; 7 Regular (Regular Texture); 0 Thin (All Liquids) GI prophylaxis: Protonix Fall Prevention Isolation: No active isolations Pain management: Acetaminophen, Oxycodone, Lidocaine, Robaxin DVT prophylaxis: Lovenox Rehab Issues: Potential barriers to progress- complex medical issues, significant impairments. Rehab plan- PT/OT for ADLs, transfer, and gait training, ROM , strengthening and balance exercises,assistive device prescription. Rehab nursing for skin care, bowel and bladder care, administration of medication, patient and family education. Case management for care coordination and discharge.Therapy schedule will be 3 hrs/day x 5-6 days/week or 15 hrs/7 days in special situations. Weekly Interdisciplinary Rehab Team Meeting to address barriers to discharge and coordination of care. Subjective: 10 pt ROS negative for - chills, fatigue, fever, malaise, night sweats, sleep disturbance, or THIBODEAUX, CP, SOB, diarrhea Current Function: 11/04/2024: SM Functional Status PT Data (since 11/01/2024) Value Time User Bed Mobility Level of Assist Minimal Assistance 11/04/2024 11:54 AM Jessica Kinsey, PT Bed Mobility Comment Supine to sit with Meena for trunk righting due to retro LOB. BP 119/79, HR 94 bpm sitting EOB. Pt c/o lightheadedness. 11/04/2024 11:54 AM Jessica Kinsey, PT Transfer to Wheelchair 11/01/2024 11:17 AM Olvin Arce, PT Transfer from Bed 11/01/2024 11:17 AM Olvin Arce, PT Transfer Level of Assist Contact Guard 11/04/2024 11:54 AM Jessica Kinsey, PT Ambulation Level of Assist Contact Guard 11/04/2024 11:54 AM Jessica Kinsey, PT Distance (feet) 16 11/04/2024 11:54 AM Jessica Kinsey, PT Gait Analysis Patient ambulates from bed to toilet with RW and CGA. Pt voids in standing with CGA from spouse for safety. Requests w/c pick-up due to fatigue. BP 126/89 following. 11/04/2024 11:54 AM Jessica Kinsey PT WC Analysis PT dependently transported patient room <> therapy gym, utilizing this time to establish goals for session then re-assess pain levels 11/03/2024 3:23 PM Belinda Larsen, PT Objective: Physical Exam: VS: BP 120/76 Pulse 74 Temp 96.8 ??F (36 ??C) (Oral) Resp 16 Ht 5' 9 (1.753 m) Wt 165 lb 8 oz (75.1 kg) SpO2 96% BMI 24.44 kg/m?? General: NAD CV: No c/c/e Pulm: No audible wheezing or stridor Abdomen: soft, non-tender, No g/r/r Extremities: Full ROM in all limbs, Tone normal in all limbs Wound Management: Wound Management Orders (From admission, onward) Start Ordered 11/01/24 1400 Wound Management: Use Associated Wounds location ([place]); Wound prevention Weekly Comments: Apply foam. Assess under foam with each skin assessment. Question Answer Comment Wound Location Use [facility] location [facility] [place] Wound Management Wound prevention 10/31/24 1115 10/31/24 0933 Wound Management: Use Associated Wounds location (ALL WOUNDS/PREVENTION); Wound care per algorithm Per algorithm Question Answer Comment Wound Location Use Associated [facility] location ALL WOUNDS/PREVENTION Wound Management Wound care per algorithm 10/31/24 0932 Section GG CARE Scores - Current All Therapy Physical Therapy Car Transfer Car Transfer - CARE Score: 3 (10/31/241235) Walk 10 Feet Walk 10 Feet - CARE Score: 1 (10/31/241235) Walk 50 Feet with Two Turns Walk 50 Feet with Two Turns - CARE Score: 1 (10/31/241235) Walk 150 Feet Walk 150 Feet - CARE Score: 88 (10/31/241235) Walking 10 Feet on Uneven Surfaces Walking 10 Feet on Uneven Surfaces - CARE Score: 88 (10/31/241235) 1 Step (Curb) 1 Step (Curb) - CARE Score: 88 (10/31/241235) 4 Steps 4 Steps - CARE Score: 88 (10/31/241235) 12 Steps 12 Steps - CARE Score: 88 (10/31/241235) Picking Up Object Picking Up Object - CARE Score: 88 (10/31/241235) Wheel 50 Feet with Two Turns Wheel 50 Feet with Two Turns - CARE Score: 1 (10/31/241235) Wheel 150 Feet Wheel 150 Feet - CARE Score: 1 (10/31/241235) Occupational Therapy Eating Eating - CARE Score: 5 (11/01/2421) Oral Hygiene Oral Hygiene - CARE Score: 5 (11/01/2421) Toileting Hygiene Toileting Hygiene - CARE Score: 5 (11/01/2421) Shower/Bathe Self Shower/Bathe Self - CARE Score: 5 (11/01/2421) Upper Body Dressing Upper Body Dressing - CARE Score: 5 (11/01/2421) Lower Body Dressing Lower Body Dressing - CARE Score: 5 (11/01/2421) Putting On/Taking Off Footwear Putting On/Taking Off Footwear - CARE Score: 5 (11/01/2421) Roll Left and Right Roll Left and Right - CARE Score: 2 (10/31/244) Sit to Lying Sit to Lying - CARE Score: 5 (11/01/2421) Lying to Sitting on Side of Bed Lying to Sitting on Side of Bed - CARE Score: - (11/01/2421) Sit to Stand Sit to Stand - CARE Score: 4 (11/01/2421) Chair/Mkm-sr-Sfchw Transfer Chair/Eoa-kk-Kzlgi Transfer - CARE Score: 4 (11/01/2421) Toilet Transfer Toilet Transfer - CARE Score: 4 (11/01/2421) Speech Therapy Expression of Ideas and Wants Expression of Ideas and Wants: Without difficulty (10/31/24822) Understanding Verbal and Non-Verbal Content Understanding Verbal and Non-Verbal Content: Understands (10/31/24822) BIMS Brief Interview for Mental Status (BIMS) Repetition of Three Words (First Attempt): 3 (10/31/24822) Temporal Orientation: Year: Correct (10/31/24822) Temporal Orientation: Month: Accurate within 5 days (10/31/24822) Temporal Orientation: Day: Correct (10/31/24822) Recall: Sock : Yes, no cue required (10/31/24822) Recall: Blue : Yes, no cue required (10/31/24822) Recall: Bed : Yes, after cueing ( a piece of furniture ) (10/31/24822) BIMS Summary Score: 14 (10/31/24822) Memory/Recall Ability Labs: Imaging: US DOPPLER COMPLETE Result Date: 10/29/2024 * * *Final Report* * * DATE OF EXAM: Oct 29 2024 3:39PM [facility] [place] 1033 - US DOPPLER COMPLETE / PROCEDURE REASON: Liver transplant * * * * Physician Interpretation * * * * EXAMINATION:LIVER VASCULAR ULTRASOUND WITH DOPPLER IMAGING CLINICAL HISTORY: 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 Images were obtained and stored in a permanent archive. MQ: USLV_1 COMPARISON:CT 10/24/2024, ultrasound 10/19/2024. RESULT: Sonographic Findings: Pancreas: Normal sonographic appearance. Portions obscured: tail Liver: Echotexture: Normal, homogeneous. Echogenicity: Normal Surface contour: Smooth Lesions: None. Biliary: No intrahepatic biliary duct dilation. Stable pneumobilia. CBD: 0.8 cm at the hilum. Gallbladder: Prior cholecystectomy. Gallbladder fossa partially obscured with drain in place. Right Kidney: No hydronephrosis. Spleen: Craniocaudal length 9.4 cm, normal. There are no splenic lesions. Other: Moderate volume loculated ascites, increased from prior ultrasound 10/19/2024 HEPATIC VASCULATURE: PORTAL SYSTEM: -Splenic Vein: Patent with antegrade flow (towards the liver). -Main PV: Patent with phasic antegrade flow (towards liver). 44-58 cm/sec. Previously 38-53 cm/sec. -Right anterior PV: Patent with phasic antegrade flow (towards liver). 25.5 cm/sec. Pre viously 30 cm/sec -Right posterior PV: Patent with phasic antegrade flow (towards liver). 30 cm/sec. Previously 32 cm/sec -Left PV: Patent with phasic antegrade flow (towards liver). 19 cm/sec. Previously 26 cm/sec HEPATIC ARTERIES: - Main THIBODEAUX: Normal waveform PSV: 51-57 cm/sec. RI: 0.74-0.75. Previo usly 70-84 cm/sec. RI: 0.76-0.80 - Right anterior THIBODEAUX: Normal waveform PSV: 59 cm/sec. RI: 0.68. Previously 66 cm/sec. RI: 0.72 - Right posterior THIBODEAUX: Normal waveform PSV: 81 cm/sec. RI: 0.74. Previously 66 cm/sec. RI: 0.77 - Left THIBODEAXU: Normal waveform PSV: 60 cm/sec. RI: 0.70. Previously 73 cm/sec. RI: 0.77 HEPATIC VEINS: -Left: Patent with triphasic waveform. -Middle: Patent with triphasic waveform. -Right: Patent with triphasic waveform. IVC: Patent with normal, phasic wave form. IMPRESSION: Patent hepatic vasculature with appropriately directed flow. Mildly increased multiloculated ascites. Stripper Apprentice: [facility] Transcribe Date/Time: Oct 29 2024 3:46P Dictated by : MARIO YU MD This examination was interpreted and the report reviewed and electronically signed by: AMARILIS ADAMSON MD on Oct 29 2024 4:11PM [facility] US ABD LIVER VASCULAR TRANSPLANT () Result Date: 10/29/2024 * * *Final Report* * * DATE OF EXAM: Oct 29 2024 3:00PM [facility] [place] 0685 - ABD LIVER VASCULAR TRANSPLANT/ PROCEDURE REASON: Liver transplant * * * * Physician Interpretation * * * *EXAMINATION: LIVER VASCULAR ULTRASOUND WITH DOPPLER IMAGING CLINICAL HISTORY: 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 Images were obtained and stored in a permanent archive. MQ: USLV_1 COMPARISON: CT 10/24/2024, ultrasound 10/19/2024. RESULT: Sonographic Findings: Pancreas: Normal sonographic appearance. Portions obscured: tail Liver: Echotexture: Normal, homogeneous. Echogenicity: Normal Surface contour: Smooth Lesions: None. Biliary: No intrahepatic biliary duct dilation. Stable pneumobilia. CBD: 0.8 cm at the hilum. Gallbladder: Prior cholecystectomy. Gallbladder fossa partially obscured with drain in place. Right Kidney: No hydronephrosis. Spleen: Craniocaudal length 9.4cm, normal. There are no splenic lesions. Other: Moderate volume loculated ascites, increased from p rior ultrasound 10/19/2024 HEPATIC VASCULATURE: PORTAL SYSTEM: -Splenic Vein: Patent with antegradeflow (towards the liver). -Main PV: Patent with phasic antegrade flow (towards liver). 44-58 cm/sec. Previously 38-53 cm/sec. -Right anterior PV: Patent with phasic antegrade flow (towards liver). 25.5 cm/sec. Previously 30 cm/sec -Right posterior PV: Patent with phasic antegrade flow (towards liver). 30 cm/sec. Previously 32 cm/sec -Left PV: Patent with phasic antegrade flow (towards liver). 19cm/sec. Previously 26 cm/sec HEPATIC ARTERIES: - Main THIBODEAUX: Normal waveform PSV: 51-57 cm/sec. RI: 0.74-0.75. Previously 70-84 cm/sec. RI: 0.76-0.80 - Right anterior THIBODEAUX: Normal waveform PSV: 59 cm/sec.RI: 0.68. Previously 66 cm/sec. RI: 0.72 - Right posterior THIBODEAUX: Normal waveform PSV: 81 cm/sec. RI: 0.74. Previously 66 cm/sec. RI: 0.77 - Left THIBODEAUX: Normal waveform PSV: 60 cm/sec. RI: 0.70. Oaginzinnp27 cm/sec. RI: 0.77 HEPATIC VEINS: -Left: Patent with triphasic waveform. -Middle: Patent with triphasic waveform. -Right: Patent with triphasic waveform. IVC: Patent with normal, phasic wave form. IMPRESSION: Patent hepatic vasculature with appropriately directed flow. Mildly increased multiloculated ascites. Stripper Apprentice: [facility] Transcribe Date/Time: Oct 29 2024 3:46P Dictated by : MARIO YU MD This examination was interpreted and the report reviewed and electronically signed by: AMARILIS ADAMSON MD on Oct 29 2024 4:11PM EST MRI BRAIN WO IVCON Result Date: 10/24/2024 * * *Final Report* * * DATE OF EXAM: Oct 24 2024 7:06PM Q 0294 - MRI BRAIN WO IVCON / PROCEDURE REASON: Dizziness, non-specific * * * * Physician Interpretation * * * * EXAMINATION: MRI BRAIN WO IVCON CLINICAL HISTORY: Dizziness TECHNIQUE: Routine noncontrast MRI protocol including diffusion images. MQ: MRBWO_2 COMPARISON: Head CT 10/07/2024 RESULT: Acute Change: There is no evidence of restricted diffusion to suggest an acute infarct. Hemorrhage: No evidence of prior parenchymal hemorrhage on the susceptibility weighted images. Mass Lesion/ Mass Effect: No evidence of an intracranial mass or extra-axial fluid collection. No mass effect. Chronic Change: Extensive patchy confluent T2 FLAIR hyperintense lesions are present throughout the bilateral supratentorial brainand alejandra compatible with sequela of chronic small vessel disease. Moderate diffuse brain volume loss. Ventricles: No evidence of hydrocephalus. Skull Base: Hypothalamic and pituitary region are grossly normal. Craniocervical junction is normal. No significant marrow replacement process. Vasculature: Major intracranial arterial structures, and dural venous sinuses show typical flow void, suggesting patency by spin echo criteria. Other: The visualized paranasal sinuses and mastoid air cells are cl ear. The orbits and extracranial soft tissues are unremarkable. IMPRESSION: No evidence of acute intracranial abnormality. Extensive patchy confluent T2 FLAIR hyperintense lesions are present throughout the bilateral supratentorial brain and alejandra compatible with sequela of chronic small vessel disease. Stripper Apprentice: [facility] Transcribe Date/Time: Oct 24 2024 7:06P Dictated by : JASON ZURITA MD This examination was interpreted and the report reviewed and electronically signed by: JASON ZURITA MD on Oct 24 2024 7:10PM EST CT ABD/PEL W IVCON Result Date: 10/24/2024 * * *Final Report* * * DATE OF EXAM: Oct 24 2024 6:28PM [facility] 0530 - CT ABD/PEL W IVCON / PROCEDURE REASON: Abdominal pain, acute, nonlocalized * * * * Physician Interpretation * * * * EXAMINATION: CT ABDOMEN AND PELVIS WITH IV CONTRAST CLINICAL HISTORY: 69-year-old man with a history of liver transplant on 09/09/2024, now with vomiting and abdominal pain/distention TECHNIQUE: CT of the abdomen and pelvis was performed using standard technique, scanning from just above the dome of the diaphragm to the symphysis pubis. MQ: CTAP_3 Contrast: Central IV: 100 ml of Omnipaque 350: ml of CT Radiation dose: Integrated Dose-length product (DLP) for this visit = 402 mGy*cm. CT Dose Reduction Employed: mAs-kVp adjusted based on patient size-age COMPARISON: 10/16/2024 and 10/18/2024 RESULT: Liver: Liver transplant. Mildly decreasing conspicuity and size of ill-defined low-attenuation lesion in the right hepatic lobe (i.e. 3:22), likely resolving infarction/infection. Biliary: No bile duct dilation. Common bile duct stent in place with expected pneumobilia. Cholecystectomy. Residual 4.1 x 2.0 cm collection in the gallbladder fossa (3:45), previously measuring 3.9 x 2.8 cm when measured similarly. Previously well-positioned drain within this collection seen on CT 10/18/2024, hasbeen slightly retracted in the interval, with the pigtail now uncurled, with several of the sideholes now within the liver parenchyma. Spleen: No mass. No splenomegaly. Pancreas: No mass or duct dilation. Adrenals: No mass. Kidneys: No mass, calculus or hydronephrosis. GI tract: A single loop of jejunum in the left upper quadrant measures up to 5 cm, without transition point, and enteric contrast reaching the terminal ileum/cecum.. Colonic diverticulosis, without acute diverticulitis. NG/OG tube terminating at the gastric body, sidehole subdiaphragmatic. Lymph nodes: No abdominal or pelvic lymphadenopathy. Mesentery/Peritoneum: Moderate volume ascites, slightly increased since 10/18/2024. Mild diffuse peritoneal thickening/enhancement. No loculated fluid collection otherwise. Retroperitoneum: No mass. Vasculature: - Abdominal aorta and iliac arteries: Atherosclerotic calcifications without aneurysm. - Celiac and SMA: Patent without stenosis. - Portal venous system (SMV, splenic vein, portal vein and branches): Patent. - Hepatic veins: Patent. Pelvis: No mass or fluid collection. Right inguinal hernia containing ascitic fluid. Bones/Soft Tissues: Severe compression deformities of T12 and L1, unchanged. Diffuse body wall edema. Lower thorax: Moderate left pleural effusion. Small right loculated hydropneumothorax, unchanged. Bibasilar atelectasis. Localizer images: No additional findings. IMPRESSION: Further mild interval decrease in size of gallbladder fossa collection. Of note, the previously well-positioned percutaneous drain is now slightly retracted, with a few of the sideholes now within the hepatic parenchyma. Slightly increased moderate volume ascites, with new peritoneal thi ckening/enhancement, suggestive of peritonitis, perhaps bile peritonitis given somewhat malpositioned percutaneous drain within the known biliary leak. Stripper Apprentice: [facility] Transcribe Date/Time: Oct 24 2024 6:39P Dictated by : MIKE OATES MD This examination was interpreted and the report reviewed and electronically signed by: MIKE OATES MD on Oct 24 2024 6:50PM EST IR VASCULAR ACCESS TEAM PICC INSERTION RADIO Result Date: 10/24/2024 Eileen Hernandez RN 10/24/2024 11:49 AM PICC NURSE INSERTION NOTE DATE OF PROCEDURE: October 24, 2024 TIME OF PROCEDURE: 1100 ORDERING PHYSICIAN: Brandi Alarcon INFORMED CONSENT: Obtained per hospital policy. INDICATION FOR LINE PLACEMENT: COPAT CONDITION OF LINE PLACEMENT: Sterile PRIMARY PROCEDURALIST: Ceci Beauchamp RN MARKETING DESIGNER: Lili Hernandez RN PRE-PROCEDURE REVIEW ALLERGIES No Known Allergies Known History of Upper Venous Thrombosis: No Known History of Permanent Pacemaker or Automated Implanted Cardiac Device: No Previous Breast Surgery of Lymph Node Dissection: No Estimated Glomerular Filtration Rate Date Value Ref Range Status 10/24/2024 95 >=60 mL/min/1.73m Final Comment: Estimated Glomerular Filtration Rate (eGFR) is calculated using the 2020 CKD-EPI creatinine equation. This equation utilizes serum creatinine, sex, and age as parameters. The creatinine assay has traceable calibration to isotope dilution-mass spectrometry. Refer to KDIGO guidelines for clinical interpretation. In patients with unstable renal function, e.g. those with acute kidney injury, the eGFR may not accurately reflect actual GFR. eGFR- Date Value Ref Range Status 10/17/2016 >60 Final History of Renal Disease: CKD, GFR 92 Ultrasound Assessment Complete: Yes PROCEDURE NARRATIVE SAFE PRACTICE Hand Hygiene per Hospital Policy: Yes Skin Preparation Unit Dose Applicator Used: Chloraprep (CHG + alcohol), allowed to dry. Procedure Surface Cleansed with Antimicrobial Wipes: Yes BarriersUsed by Proceduralist and all Assisting Personnel: Yes UNIVERSAL PROTOCOL / SAFETY CHECKLIST Procedure to be Performed: peripherally inserted central catheter Sign In: A Moment of CARE was completed.Appropriate PPE (Personal Protective Equipment) worn by all providers involved with the procedure. Special equipment not required. Patient/Surrogate Stated/Verified: Patient name, Date of , Relevant allergies, and The intended procedure Time Out: Relevant labs, photos, and/or imaging studies have been reviewed. Intended patient and procedure match the source document(s) (e.g. consent, H&P, associated studies [imaging, pathology]) match the intended patient and procedure. Consent obtained and matches the intended procedure. Yes. Correct side/site has been marked and visible. Medications required for this procedure are verified. Fire risk assessed and is not applicable. Implants: arenot applicable. Sign Out: Specimens not collected. All instruments, equipment, possible retained foreign bodies are accounted for. Yes. The post-procedure plan of care has been communicated to the patient or surrogate and to patient's multidisciplinary team (including bedside nurse for hospitalizedpatients). CATHETER PLACEMENT Brand: OPHTHONIX Lot: [id number] Number of Lumens: 1 Type of PICC: Power Injectable PICC Lumen Size: 4 [place] PLACEMENT TECHNIQUE Lidocaine: Yes, Lidocaine 1% Volume 4 mL Subcutaneous Modified Seldinger Technique Used to Place Line via the Right Basilic Ultrasound Guidance: Yes Number of Attempts at Insertion: 2 Ensured control of guidewire during all aspects of the procedure: Yes Accounted for entire guidewire upon removal: Yes Internal Length: 39 cm External Length: 0 cm Trim Length: 39 cm Mid-Arm Circumference: 25 centimeters Post Insertion Pain Level Related to Proce dure: 0 Action Taken to Address Pain: None needed Verified Placement: Blood return and flushes withease and Tip location system or device indicates the tip is located in the SVC/CAJ. Line was Flushed with 20 mL normal saline Line Secured with: Securement device Sterile Dressing Applied and Dated: Yes Sterile Caps on all Ports Prior to Leaving Procedure Area: Yes, Disinfection caps applied SPECIMENS: None COMPLICATIONS: Patient with baseline nausea/vomiting upon arrival to room. Bedside RN at bedside to provide medication. Patient positioned for comfort. Patient Education Materials: Left at bedside [facility] Central Line Insertion checklist was utilized during this procedure. QUESTIONS or PROBLEMS: Page [id number] SIGNATURE: Eileen Hernandez RN PATIENT NAME: Charles Blandon DATE: 2024 TIME: 11:18 AM PAGER/CONTACT PHONE: XR ABDOMEN 1V SUPINE Result Date: 10/24/2024 * * *Final Report* * * DATE OF EXAM: Oct 24 2024 5:36AM [facility] [id number] - XR ABDOMEN 1V SUPINE / PROCEDURE REASON: Nausea/Vomiting * * * * Physician Interpretation * * * * ABDOMEN, 1 VIEW 10/24/2024 CLINICAL INFORMATION: Nausea/Vomiting. TECHNIQUE: Supine frontal view, 1 image(s) COMPARISON: 10/19/2024 RESULT: See impression. IMPRESSION: Lines, tubes, and devices: Right upper quadrant TIPS, cholecystostomy tube, and surgical clips. Bowel: Gastric gaseous distention. Scattered gas-filled nondilated small bowel and colon. 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 Images were obtained and stored in a permanent archive. MQ: USLV_1 COMPARISON: CT 10/18/2024, liver ultrasound 10/08/2024 RESULT: Sonographic Findings: Pancreas: Normal sonographic appearance. Portions obscured: tail Liver: Echotexture: Normal, homogeneous. Echogenicity: Normal Surface contour: Smooth Lesions: None. Biliary: No intrahepatic biliary duct dilation. Pneumobilia, stable. CBD: 0.7 cm at the hilum. CBD stent present. Gallbladder: Absent Right Kidney: No hydronephrosis. Spleen: Craniocaudal length 9.3 cm, normal. There are no splenic lesions. Other: Small volume loculated abdominal ascites. HEPATIC VASCULATURE: PORTAL SYSTEM: - Splenic Vein: Patent with antegrade flow (towards the liver). -Main PV: Patent with phasic antegrade flow (towards liver). 38-53 cm/sec -Right anterior PV: Patent with phasic antegrade flow (towards liver). 38 cm/sec -Right posterior PV: Patent with phasic antegrade flow (towards liver). 32 cm/sec -Left PV: Patent with phasic antegrade flow (towards liver). 26 cm/sec HEPATIC ARTERIES: - Main THIBODEAUX: Normal waveform PSV: 70-84 cm/sec. RI: 0.76-0.8 - Right anterior THIBODEAUX: Normal waveform PSV: 66 cm/sec. RI: 0.72 - Right posterior THIBODEAUX: Normal waveform PSV: 66 cm/sec. RI: 0.77 - Left THIBODEAUX: Normal waveform PSV: 73 cm/sec. RI: 0.77 HEPATIC VEINS:-Left: Patent with triphasic waveform. -Middle: Patent with triphasic waveform. -Right: Patent withtriphasic waveform. IVC: Patent with normal, phasic wave form. IMPRESSION: Patent hepatic vasculature with appropriately directed flow. 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 Small volume loculated ascites. No splenomegaly. Stable pneumobilia Stripper Apprentice: [facility] Transcribe Date/Time: Oct 19 2024 4:18P Dictated by : STEWART BROUSSARD MD This examination was interpreted and the report reviewed and electronically signed by: AKIKO PHAN MD on Oct 19 2024 4:29PM EST US ABD LIVER VASCULAR TRANSPLANT () Result Date: 10/19/2024 * * *Final Report* * * DATE OF EXAM: Oct 19 2024 3:55PM [facility] [place] 0685 - US ABD LIVER VASCULAR TRANSPLANT / PROCEDURE REASON: Liver transplant * * * * Physician Interpretation * * * * EXAMINATION: LIVER VASCULAR ULTRASOUND WITH DOPPLER IMAGING CLINICAL HISTORY: 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 Images were obtained and stored in a permanent archive. MQ: USLV_1 COMPARISON: CT 10/18/2024, liver ultrasound 10/08/2024 RESULT: Sonographic Findings: Pancreas: Normal sonographic appearance. Portions obscured: tail Liver: Echotexture: Normal, homogeneous. Echogenicity: Normal Surface contour: Smooth Lesions: None. Biliary: No intrahepatic biliary duct dilation. Pneumobilia, stable. CBD: 0.7 cm at the hilum. CBD stent present. Gallbladder: Absent RightKidney: No hydronephrosis. Spleen: Craniocaudal length 9.3 cm, normal. There are no splenic lesions. Other: Small volume loculated abdominal ascites. HEPATIC VASCULATURE: PORTAL SYSTEM: - Splenic Vein: Patent with antegrade flow (towards the liver). -Main PV: Patent with phasic antegrade flow (towards liver). 38-53 cm/sec -Right anterior PV: Patent with phasic antegrade flow (towards liver). 38 cm/sec -Right posterior PV: Patent with phasic antegrade flow (towards liver). 32 cm/sec -Left PV: Dunlap nt with phasic antegrade flow (towards liver). 26 cm/sec HEPATIC ARTERIES: - Main THIBODEAUX: Normal waveform PSV: 70-84 cm/sec. RI: 0.76-0.8 - Right anterior THIBODEAUX: Normal waveform PSV: 66 cm/sec. RI: 0.72 - Right posterior THIBODEAUX: Normal waveform PSV: 66 cm/sec. RI: 0.77 - Left THIBODEAUX: Normal waveform PSV: 73 cm/sec. RI: 0.77 HEPATIC VEINS: -Left: Patent with triphasic waveform. -Middle: Patent with triphasic waveform. -Right: Patent with triphasic waveform. IVC: Patent with normal, phasic wave form. IMPRESSION: Patent hepatic vasculature with appropriately directed flow. 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 Small volume loculated ascites. No splenomegaly. Stable pneumobilia Stripper Apprentice: [facility] Transcribe Date/Time: Oct 19 2024 4:18P Dictated by : STEWART BROUSSARD MD This examination was interpreted and the report reviewed and electronically signed by: AKIKO PHAN MD on Oct 19 2024 4:29PM EST XR ABDOMEN 1V SUPINE Result Date: 10/19/2024 * * *Final Report* * * DATE OF EXAM: Oct 19 2024 2:22PM [facility]289 - XR ABDOMEN 1V SUPINE / PROCEDURE REASON: Abdominal pain * * * * Physician Interpretation * * * * EXAM: KUB ABDOMEN. CLINICAL INFORMATION: Abdominal pain TECHNIQUE: Supine abdomen, 2 image(s) COMPARISON: 10/07/2024, CT dated 10/18/2024 RESULT: See Impression. IMPRESSION: Support lines and tubes: RIGHT mid abdominal catheter present. CBD stent present. Bowelgas pattern: Mildly dilated colon with the transverse colon measuring up to 6.2 cm. This is likely ileus. No significant small bowel dilatation. Calcifications: RIGHT upper quadrant surgical clips. Tr anscriptionist: SRINI Transcribe Date/Time: Oct 19 2024 3:20P Dictated by : AKIKO PHAN MD This examination was interpreted and the report reviewed and electronically signed by: AKIKO PHAN MD onJu2024 3:24PM EST CT ABDOMEN WO IVCON Result Date: 10/18/2024 * * *Final Report* * * DATE OF EXAM: Oct 18 2024 3:27PM [facility] [place] 0534 - CT ABDOMEN WO IVCON / PROCEDURE REASON: Post-operative / post-procedure assessment, symptomatic * * * * Physician Interpretation * * * * EXAMINATION: CT ABDOMEN WITHOUT IV CONTRAST CLINICAL HISTORY: Abdominal pain, post drain placement.Patient is status post liver transplant. Status post drainage of RIGHT hydrothorax on 09/09/2024 TECHNIQUE: Non-IV contrast imaging of the abdomen was performed using standard technique, scanning from just above the dome of the diaphragm to the iliac crest. Unenhanced imaging is limited for the evaluation of some intra-abdominal pathology. MQ: CTAbdWO_3 Contrast: IV: None Oral: 300 ml of Omni 56277-22hg diluted with water CT Radiation dose: Integrated Dose-length product (DLP) for this visit =208 mGy*cm. CT Dose Reduction Employed: Automated exposure control (AEC) COMPARISON: 10/16/2024 RESU LT: Liver: Unenhanced liver allograft is unremarkable. Previously seen geographic area of low-attenuation in segment 4/8 is less well seen without IV contrast, but is overall stable. No definite new hepatic focal lesions on this study. Biliary: Pneumobilia. Biliary stent in place. There has been interval placement of a percutaneous drainage catheter with decompression of the gallbladder fossa collection. Currently the collection measures 2.6 x 1.4 cm (3:46), previously 5.2 x 3.8 cm. Spleen: No splenomegaly. Pancreas: Unremarkable. Adrenals: No mass. Kidneys: Previously administered excreted co ntrast in both collecting systems. No hydronephrosis. GI Tract: No bowel dilation. Lymph Nodes: No lymphadenopathy. Mesentery/peritoneum: Moderate abdominal ascites, similar in volume as compared to prior study. No new focal drainable fluid collections. Retroperitoneum: No mass. Vasculature: No aortic aneurysm. Atherosclerotic calcifications. Patency of hepatic vasculature cannot be established on this unenhanced study. Bones/Soft Tissues: Degenerative changes. Remote healed rib fractures. Lower thorax: Essentially stable RIGHT hydropneumothorax and moderate LEFT pleural effusion. Localizer images: No additional findings. IMPRESSION: Interval placement of a percutaneous drainage catheter with decompression of the gallbladder fossa collection. Moderate volume abdominal ascites, similar to prior study. Essentially stable RIGHT hydropneumothorax and moderate LEFT pleural effusion. Stripper Apprentice: [facility] Transcribe Date/Time: Oct 18 2024 4:19P Dictated by : AKIKO PHAN MD This examination was interpreted and the report reviewed and electronically signed by: AKIKO PHAN MD on Oct 18 2024 4:28PM EST US IMAGING GUIDED DRAIN PLACEMENT PERITONEAL/RETROPERITD Result Date: 10/17/2024 * * *Final Report* * * DATE OF EXAM: Oct 17 2024 5:03PM [facility] [place] 1170 - US LEANNA BRADLEY PERIT/RETROP FL BI / PROCEDURE REASON: Liver transplant * * * * Physician Interpretation * * * * PROCEDURE PERFORMED: ULTRASOUND GUIDED DRAIN PLACEMENT PRE-PROCEDURE DIAGNOSIS: Abdominal fluid collection(s) POST- PROCEDURE DIAGNOSIS: Same as pre-procedure diagnosis INDICATION FOR PROCEDURE: gallbladder fossa collection RELEVANT PRIOR STUDIES: CT 10/16/2024 STAFF RADIOLOGIST: Dr. Julio MARKETING DESIGNER(S):Dr. Boss CONSENT: The risks, benefits, treatment options, potential complications and personnelinvolved were discussed with the patient. All questions were answered and consent was obtained. The patient indicated willingness to proceed. The staff physician personally verified consent. TIME OUT: A time out was performed immediately prior to procedure start with the nursing, anesthesia and interventional team, correctly identifying the patient name, date of , procedure, anatomy (including marking of site and side), patient position, procedure consent form, relevant diagnostic and radiology test results, antibiotic administration, safety precautions, and procedure-specific equipment needs. RESULT: PROCEDURE: After performing the time out, the abdominal fluid collection was localized with ultrasound, images were obtained and archived. The right upper quadrant was prepped and draped in the usual sterile fashion. Under ultrasound guidance, an 18 gauge trochar needle was advanced into the collection using a transhepatic approach. Then, a guide wire was inserted and the tract was serially dilated to 9 Bur[place]ian. A 10 Burundian locking pigtail catheter was then inserted. Its position was confirmed and then it was locked. A sample was aspirated. The catheter was sutured to the skin with monofilament suture and attached to a J-P bulb drain. The procedure was performed by the: attending radiologist, with an insurance account assistant. The attending radiologist performed the following procedural activities: Supervised entire procedure ANESTHESIA/SEDATION: Conscious sedation: Versed: 1.0 mg IV Fentanyl: 50 mcg IV Local anesthesia: Lidocaine 1%: 17 cc Vital signs were monitored by the nurse. START TIME/TIMEOUT TIME: 16:35 END TIME: 17:00 INTRA- SERVICE (SEDATION) TIME: 30 minutes PATIENT MONITORING: The staff physician personally supervised and directed an independent trained observer who assisted in monitoring the patient?s level of consciousness and physiological status throughout the procedure. SIGNIFICANT COMPLICATIONS: None MINOR COMPLICATIONS: None SIGN-OUT DISCUSSION: Completed ESTIMATED BLOOD LOSS: Trace SPECIMENS: 40 cc of cloudy bilious fluid aspirated and samples sent to microbiology . Sample also sent for bilirubin and cell count. DRAIN(S): 10 Burundian pigtail drain IMPRESSION: ULTRASOUND GUIDED TRANSHEPATIC DRAIN PLACEMENT IN GALLBLADDER FOSSA COLLECTION. Stripper Apprentice: [facility] Transcribe Date/Time: Oct 17 2024 5:16P Dictated by : AMARILIS BOSS MD This examination was interpreted and the report reviewed and electronically signed by: EVERTON [facility]ULIO [facility] ECHO Result Date: 10/17/2024 Echocardiography Report: Transthoracic Echo Main [facility] Date of service: 10/17/2024 11:11:17 AM ANALYST Ordering physician: BRANDI ALARCON Exam indication: Shortness of Breath Technologist: Ria Weaver Interpreting physician: Lena Whalen MD PATIENT: Name: MR. CHARLES BLANDON : 1955 Age: 69 years Gender: M History of hypertension and chronic kidney disease. Previous cardiovascular interventions: Liver transplant Primary rhythm: sinus. Height: 175.30 cm BSA: 1.82 m??? Weight: 67.80 kg BMI: 22.1 kg/m??? Heart rate 78 bpm Blood pressure 136/79 mmHg Technically difficult exam due to body habitus and suboptimal positioning. Color Doppler was utilized to interrogate the cardiac valves assessed and spectral Doppler was utilized to determine the flowvelocities and pressure gradients reported in this exam. MEASUREMENTS: Value Indexed Normal LV ID (diastole) 4.8 cm (2D) 2.62 cm/m??? LV ID (systole) 3.1 cm (2D) 1.73 cm/m??? IVS, leaflet tips 1.1 cm(2D) Posterior wall thickness 1.1 cm (2D) Left ventricular mass 190 g (2D) 105 g/m??? Ejection Fraction 55 % (visual est.) EF > 52 FINDINGS: LEFT VENTRICLE The left ventricle is normal in size. Left ventricular systolic function is normal. Left ventricular diastolic function was not evaluated due to limited. Mitral annular lateral E/e': 5.7. Mitral annular septal E/e': 9.3. Wall Motion: All scored segments are normal. RIGHT VENTRICLE Estimated right ventricular systolic pressure is not reported due to an insufficient tricuspid regurgitation signal. Estimated right atrial pressure is 8 mmHgbased on IVC assessment. RIGHT ATRIUM Inferior Vena Cava: The inferior vena cava appears normal measuring 1.5 cm. The vessel decreases less than 50 percent with inspiration. MITRAL VALVE There is trace mitral valve regurgitation. There is mild thickening. The pressure half time is 54 msec. The peakmitral E/A ratio is 0.99. The average mitral E/e' ratio is 7.5. The mitral flow deceleration time is 187 msec. TRICUSPID VALVE There is trace tricuspid valve regurgitation. There is no thickening. AORTIC VALVE There is no aortic valve regurgitation. Tricuspid aortic valve. There is mild thickening.There is mild calcification. The peak gradient is 6 mmHg (peak velocity = 118.1 cm/s). PULMONIC VALVE The pulmonic valve was not seen or not interrogated. There is trace pulmonic valve regurgitation. PERICARDIUM There is no pericardial effusion. There is a right pleural effusion. There is an epicar dial fat pad. CONCLUSIONS: - Technically difficult exam due to body habitus and suboptimal positioning. - Exam indication: Shortness of Breath - The left ventricle is normal in size. Left ventricular systolic function is normal. EF = 55 ??? 5% (visual est.) - Aortic sclerosis. - Exam was compared with the prior echocardiographic exam performed on 09/21/2024. Right pleural effusion seen. * * * Final * * * [facility] [employer] : [id number]^[employer]^SI^SUID CT ABD/PEL W IVCON Result Date: 10/16/2024 * * *Final Report* * * DATE OF EXAM: Oct 16 2024 12:48PM [facility] [place] 0530 - CT ABD/PEL W IVCON / PROCEDURE REASON: Abnormal ERCP * * * * Physician Interpretation * * * * EXAMINATION: CT ABDOMEN AND PELVIS WITH IV CONTRAST CLINICAL HISTORY: EtOH cirrhosis/HCC, s/p DCD-OLT and drainage of right hydrothorax on 09/09/2024. Admitted for worsening abdominal distention, ascites. Concern for possible portal vein thrombus noncontrast CT. Underwent ERCP 10/15/2024 which demonstrated postoperative stricture, possible contained bile leak from the cystic duct, biliary pus/stones. TECHNIQUE: CT of the abdomen and pelvis was performed using standard technique, scanning from just above the dome of the diaphragm to the symphysis pubis. MQ: CTAP_3 Contrast: IV: 100 ml of Omnipaque 350 Oral: 300 ml of Omni 350 10-25ml diluted with water CT Radiation dose: Integrated Dose-length product (DLP) forthis visit = 639 mGy*cm. CT Dose Reduction Employed: mAs-kVp adjusted based on patient size-age COMPARISON: CT abdomen/pelvis 10/07/2024 RESULT: Liver: * Liver transplant. Mild periportal edema. * Slight interval decreased size of geographic area of low-attenuation in segments 4/8 since 10/07/2024 counting for differences of technique. Possibly resolving infarct versus inflammation. No new hepatic lesions. Biliary: * Cholecystectomy. 5.2 x 3.8 cm collection in the gallbladder fossa (3:59) containing small amount of contrast, likely corresponding with leak identified on recent ERCP. * CBD stent in place. * No biliary duct dilation. Trace pneumobilia, presumably postoperative. Spleen: No mass. No splenomegaly. Pancreas: No mass or duct dilation. Adrenals: No mass. Kidneys: No mass, calculus or hydronephrosis. GI tract: Few borderline and mildly dilated fluid and gas filled loops of small bowel without discrete transition point. No wall thickening. Diverticulosis. Lymph nodes: No abdominalor pelvic lymphadenopathy. Mesentery/Peritoneum: Moderate volume ascites. No drainable collections.Diffuse mesenteric edema. Retroperitoneum: No mass. Vasculature: - Abdominal aorta and iliac arteries: Atherosclerotic calcifications without aneurysm. - Celiac and SMA: Patent without stenosis. - Portal venous system (SMV, splenic vein, portal vein and branches): Patent. - Hepatic veins: Patent. - Other: Hepatic artery and anastomosis appears patent. Pelvis: Moderate ascites. No organized collections. No mass. Bones/Soft Tissues: Unchanged [id number] fractures. No acute osseous abnormalities. Ascites within right inguinal hernia. Diffuse bilateral edema. Lower thorax: Stable bilateral pleural effusions, partially loculated on the right with hydropneumothorax. Localizer images: No additional findings. IMPRESSION: 5.2 cm collection in the gallbladder fossa with small amount of contrast, likely contained bile leak. Stable to slightly decreased size of geographic low-attenuation in the right hepatic lobe, possibly inflammatory or evolving infarct. Moderate volume abdominopelvic ascites. Stable right hydropneumothorax and bilateral pleural effusions. Stripper Apprentice: [facility] Transcribe Date/Time: Oct 16 2024 1:06P Dictated by : JIM ANAYA MD This examination was interpreted and the report reviewed and electronically signed by: EVERTON JULIO MD on Oct 16 2024 2:07PM EST ERCP Result Date: 10/15/2024 Q3 Patient Name: Charles Blandon Procedure Date: 10/15/2024 3:44 PM Date of : 1955 Admit Type: Inpatient Age: 69 Gender: Male Note Status: Finalized Attending MD: Elizabeth Dixon MD, [id number] Procedure: ERCP Indications: Elevated alkaline phosphatase, Post liver transplant assessment Providers: Elizabeth Dixon MD, Bebo Barker MD (Fellow), Kathy Alberts MD (1st Assisting Doctor) Patient Profile: This is a 69 year old male. Refer to note in patient chart for documentation of history and physical. Referring Physician: Xuan Melendrez (Referring MD) Medicines: General Anesthesia Complications: No immediate complications. Requesting Provider: Procedure: Pre- Anesthesia Assessment: - Prior tothe procedure, a History and Physical was performed, and patient medications and allergies were reviewed. The patient's tolerance of previous anesthesia was also reviewed. The risks and benefits of th e procedure and the sedation options and risks were discussed with the patient. All questions were answered, and informed consent was obtained. Prior Anticoagulants: The patient has taken no anticoagulant or antiplatelet agents. ASA Grade Assessment: III - A patient with severe systemic disease. After reviewing the risks and benefits, the patient was deemed in satisfactory condition to undergo the procedure. After obtaining informed consent, the scope was passed under direct vision. Throughout the procedure, the patient's blood pressure, pulse, and oxygen saturations were monitored continuously. The Duodenoscope was introduced through the mouth, and advanced to the duodenum and used to inject contrast into the bile duct. The ERCP was accomplished without difficulty. The patient tolerated the procedure well. Moderate Sedation: General anesthesia was administered by the anesthesia team. Findings: A contestant coordinator film of the abdomen was obtained. Surgical clips, consistent with a previous chol ecystectomy and known liver transplant, were seen in the area of the right upper quadrant of the abdomen. The major papilla was adjacent to a diverticulum. The bile duct was deeply cannulated with the traction (standard) sphincterotome. Contrast was injected. I personally interpreted the bile duct images. Ductal flow of contrast was adequate. Image quality was excellent. Contrast extended to themain bile duct. Contrast extended to the bifurcation. Contrast extended to the hepatic ducts. The common hepatic duct contained filling defect(s) thought to be a stone and sludge. Extravasation of contrast originating from the donor cystic duct remnant was observed consistent with a leak that appeared contained. The recipient cystic duct remnant was normal. The common hepatic duct contained a single moderate stenosis 10 mm in length. Biliary sphincterotomy was made with a monofilament traction (standard) sphincterotome using ERBE electrocautery. There was no post-sphincterotomy bleeding. The biliary tree was swept with an 11.5 mm balloon starting at the bifurcation. Pus and debris was sweptfrom the duct. Large stone proximal to the stenosis could not be removed. One 10 mm by 10 cm covered metal stent was placed 9 cm into the common bile duct. Bile flowed through the stent. The stent was in good position. Impression: - The major papilla was adjacent to a diverticulum. - Filling defects consistent with stones and sludge was seen on the cholangiogram. - A single moderate biliary stricture was found in the common hepatic duct. The stricture was post-surgical. - A bile leak was found eminating from the donor cystic duct remnant which appeared to be contained. - A biliary sphincterotomy was performed. - The biliary tree was swept and pus and debris were found. Large stone proximal to the stenosis could not be removed. - One covered metal stent was placed into the common bile duct. Estimated Blood Loss: Estimated blood loss: none. Recommendation: - [facility]. - Resume previous diet. - Repeat ERCP in 1 month for stent removal and cholangioscopy with EHL. Procedure Code(s): --- Professional --- 81451, Endoscopic retrograde cholangiopancreatography (ERCP); with placement of endoscopic stent into biliary or pancreatic duct, including pre-and post-dilation and guide wire passage, when performed, including sphincterotomy, when performed,each stent 36945, Endoscopic retrograde cholangiopancreatography (ERCP); with removal of calculi/debris from biliary/pancreatic duct(s) 77762, Endoscopic catheterization of the biliary ductal system,radiological supervision and interpretation Diagnosis Code(s): --- Professional --- K91.89, Other postprocedural complications and disorders of digestive system K83.1, Obstruction of bile duct K83.9, Disease of biliary tract, unspecified R74.8, Abnormal levels of other serum enzymes Z09, Encounter for follow-up examination after completed treatment for conditions other than malignant neoplasm Z94.4, Liver transplant status R93.2, Abnormal findings on diagnostic imaging of liver and biliary tract CPT copyright 2020 [employer]. All rights reserved. Attending Participation: I was present and participated during the entire procedure, including non-david portions. Scope In: 4:11:32 PM Scope Out: 4:36:21 PM MD Elizabeth Bacon MD 10/15/2024 5:13:53 PM This report has been signed electronically by MD Kathy Reynolds, MD Number of Addenda: 0 NoteInitiated On: 10/15/2024 3:44 PM XR CHEST 1V FRONTAL PORT Result Date: 10/15/2024 * * *Final Report* * * DATE OF EXAM: Oct 14 2024 7:18PM [facility] 5376 - XR CHEST 1V FRONTAL PORT / PROCEDURE REASON: Post-operative/post-procedure assessment * * * * Physician Interpretation * * * * EXAMINATION: CHEST RADIOGRAPH (PORTABLE SINGLE VIEW AP) Exam Date/Time: 10/14/2024 7:18 PM Clinical History: Post-operative/post-procedure assessment MQ: XCPMC_6 Comparison: 1 day prior RESULT: Lines, tubes, and devices: The patient is rotated to the right. Lungs and pleura: Moderate right pleural effusion is noted, possibly redistributed. Also noted is small left pleural effusion. There is central pulmonary venous congestion without overt edema. Patchy opacities are noted at the lung bases, likely related to atelectasis. No definite pneumothorax is noted. Cardiomediastinal silhouette: Stable cardiomediastinal silhouette. Calcification of the aortic arch is noted with tortuosity/ectasia of the descending thoracic aorta. Other: . IMPRESSION: See result. Stripper Apprentice: [facility] Transcribe Date/Time: Oct 15 2024 7:37A Dictated by :BULMARO WINN MD This examination was interpreted and the report reviewed and electronically signed by: BULMARO WINN MD on Oct 15 2024 7:38AM EST XR CHEST 1V FRONTAL PORT Result Date: 10/11/2024 * * *Final Report* * * DATE OF EXAM: Oct 11 2024 11:23AM [facility] 5376 - XR CHEST 1V FRONTAL PORT / PROCEDURE REASON: Shortness of breath * * * * Physician Interpretation * * * * EXAMINATION: CHEST RADIOGRAPH (PORTABLE SINGLE VIEW AP) Exam Date/Time: 10/11/2024 11:23 AM Clinical History: Shortness of breath MQ: XCPMC_6 Comparison: 10/06/2024 RESULT: Lines, tubes, and devices: None.Lungs and pleura: A loculated medium-sized RIGHT related to atelectasis/consolidation adjacent lung. A trace LEFT pleural effusion is present with adjacent atelectasis. No substantial pneumothorax isidentified. Cardiomediastinal silhouette: The cardiomediastinal silhouette remains enlarged, unchanged. There are atherosclerotic calcifications in the thoracic aorta. Other: There are multiple remote right-sided rib fractures. IMPRESSION: See result Stripper Apprentice: [facility] Transcribe Date/Time: Oct 11 2024 11:40A Dictated by : PAWAN LUNA MD This examination was interpreted and the report reviewed and electronically signedby: PAWAN LUNA MD on Oct 11 2024 11:42AM EST CT CHEST WO IVCON Result Date: 10/08/2024 * * *Final Report* * * DATE OF EXAM: Oct 08 2024 1:05PM 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 Technique: Spiral CT acquisition of the chest from the thoracic inlet to the upper abdomen without contrast. MQ: CTCWO_6 CT Radiation dose: Integrated Dose-length product (DLP) for this visit = 171 mGy*cm CT Dose Reduction Employed: Automated exposure control (AEC) C omparison: CT chest, 09/01/2024 RESULT: Limitations: None. Lines, tubes, and devices: None. Lung parenchyma , pleural spaces and airways: Interval development of a loculated moderate-sized right hydropneumothorax. The pneumothorax component and air-fluid levels are new although the volume of pleural effusion has decreased since the prior (to be correlated with any recent thoracentesis/pleural fluid drainage procedures). Increase in volume of low- attenuation, medium-sized left pleural effusion without any left pneumothorax. Interval reexpansion of previously collapsed portions of the right middle and lower lobes. Persistent subpleural atelectasis in the posterior right lower lobe. Subpleural curvilinear consolidative opacity in the right middle lobe is possibly related to rounded atelectasis (image 89, Agfa series 3). Mild peribronchial thickening and interlobular septal thickening in the right lung. Mild worsening of dependent atelectasis in the posterior left lung base. A 4 mm superior segment LLL nodule along the left major fissure is new and possibly represents atelectasis (image 36). Mild curvilinear atelectasis in the inferior lingula. The trachea and major bronchi are patent. There is luminal effacement of subsegmental bronchi in the bilateral lower lobes/posterior lung bases, right more than left. Lower neck, lymph nodes, and mediastinum: The imaged thyroid gland is unremarkable. No supraclavicular or axillary lymphadenopathy. Multiple subcentimeter and a few borderline enlarged mediastinal lymph nodes have increased in size compared to the previous CT. For example, an upper right paratracheal node which previously measured 4-5 mm in short axis now measures 9- 10 mm in short axis (image 41, Agfa series 4) and a lower right paratracheal lymph node which previously measured 5-6 mm in short axis now measures 10-11 mm in short axis (image 65, Agfa series 4). The upper thoracic esophagus is minimally patulous with an air-fluid level. The GE junction is collapsed.Heart, pericardium, and thoracic vessels: The aortic root appears mildly dilated although accurate measurement is limited given cardiac pulsation and noncontrast technique. Mild aortic root calcifications noted. The ascending thoracic aorta measures 3.7-3.8 cm in its mid segment, upper limits normal. The aortic arch and descending thoracic aorta are normal in caliber with mild atherosclerotic calc ifications. The main and central pulmonary arteries are normal in caliber. There are severe diffusecoronary calcifications with probable coronary artery stents although the present scan is not optimized for coronary assessment. The cardiac chambers are normal in size. Increase in volume of a small pericardial effusion which now measures up to 10 mm anteriorly (image 128, Agfa series 4). Bones and soft tissues: No destructive bone lesion. Diffuse osteopenia with compression fracture/collapse of the T11 and T12 (counting from top). Mild loss of height in multiple lower thoracic vertebrae, such as the T7 and T8. Remote fractures of multiple right ribs with callus formation (anterior third through sixth, anterolateral seventh, lateral eighth ribs). Remote fracture of the lateral left seventh and eighth ribs and posterior left 10th rib. Moderate bilateral gynecomastia. Mild bilateral flankedema. Upper abdomen: Postsurgical changes of liver transplant with upper abdominal ascites. Pleasereview abdominal CT report from 10/07/2024 for details. Localizer images: No additional findings. IMPRESSION: Moderate-sized loculated right hydropneumothorax; the pneumothorax component is new while the pleural fluid as decreased in volume compared to the earlier CT from 09/01/2024. Correlate with history of recent thoracentesis or pleural drainage procedures. Interval increase in volume of a low-attenuation, medium-sized left pleural effusion. Improved aeration of previously atelectatic portions of the right lung with persistent atelectasis in the posterior right base and probable roundedatelectasis in the subpleural right middle lobe. Worsening atelectasis in the posterior left lung base. Superimposed pneumonia/aspiration within the atelectatic portions of the bilateral lung bases cannot be excluded. Asymmetric mild/smooth peribronchial and septal thickening in the right lung is suggestive of nonspecific perilymphatic/venous edema. Interval increase in size of a few borderline enlarged intrathoracic lymph nodes which are nonspecific, potentially reactive although follow-up is suggested. Interval development of a small anterior pericardial effusion. Diffuse osteopenia with collapsed compression of the T11 and T12 vertebrae, as well as multiple sequential bilateral rib fractures. Stripper Apprentice: [facility] Transcribe Date/Time: Oct 08 2024 1:26P Dictated by : RUPA COVINGTON MD This examination was interpreted and the report reviewed and electronically signed by: RUPA COVINGTON MD on Oct 08 2024 1:53PM EST XR ABDOMEN 1 VWS Result Date: 10/08/2024 * * *Final Report* * * DATE OF EXAM: Oct 07 2024 10:49AM [id number] - XR ABDOMEN 1V SUPINE / PROCEDURE REASON: ABD PAIN, FEVER, NO RECENT SURGERY * * * * Physician Interpretation * * * * Clinical Information: Abdominal pain, abdominal distention Supine views of the abdomen were obtained. Comparison: 10/06/2024 Gaseous distention of small bowel loops appears stable to mildly improved. No abnormal abdominal masses are identified. No pathologic calcifications. No acute bony abnormalities are seen. IMPRESSION: Stable to mildly improved gaseous distention of small bowel loops may indicate improving ileus or improving low grade/partial obstruction. Stripper Apprentice: [facility] Transcribe Date/Time: 2024 1:06P Dictated by : AMARILIS MACK MD This examination was interpreted and the report reviewed and electronically signed by: AMARILIS MACK MD on Oct 08 2024 1:08PM EST XR ABDOMEN 1V SUPINE Result Date: 10/08/2024 * * *Final Report* * * DATE OF EXAM: Oct 07 2024 10:49AM [id number] - XR ABDOMEN 1V SUPINE / PROCEDURE REASON: ABD PAIN, FEVER, NO RECENT SURGERY * * * * Physician Interpretation* * * * Clinical Information: Abdominal pain, abdominal distention Supine views of the abdomen wereobtained. Comparison: 10/06/2024 Gaseous distention of small bowel loops appears stable to mildly im proved. No abnormal abdominal masses are identified. No pathologic calcifications. No acute bony abnormalities are seen. IMPRESSION: Stable to mildly improved gaseous distention of small bowel loops may indicate improving ileus or improving low grade/partial obstruction. Stripper Apprentice: [facility] Transcribe Date/Time: 2024 1:06P Dictated by : AMARILIS MACK MD This examination was interpreted and the report reviewed and electronically signed by: AMARILIS MACK MD on Oct 08 2024 1:08PM EST US DOPPLER COMPLETE Result Date: 10/08/2024 * * *Final Report* * * DATE OF EXAM: Oct 08 2024 7:45AM U [id number] - US DOPPLER COMPLETE / PROCEDURE REASON: Liver transplant * * * * Physician Interpretation * * * * EXAMINATION:LIVER VASCULAR ULTRASOUND WITH DOPPLER IMAGING CLINICAL HISTORY: Old T5 2625 with concern for portal vein thrombosis on CT 10/07/2024 TECHNIQUE: Sonography of the liver with color and spectral Dopplerimaging of the hepatic vasculature was performed. Images were obtained and stored in a permanent archive. MQ: USLV_1 COMPARISON: CT 10/07/2024, liver vascular ultrasound 09/20/2024 RESULT: Sonographic Findings: Pancreas: Normal sonographic appearance. Portions obscured: tail Liver: Echotexture: Normal, homogeneous. Echogenicity: Similar heterogeneously hypoechoic parenchyma within the right hepaticdome, related to ischemia or operative handling. Surface contour: Smooth Lesions: None. Biliary: Nointrahepatic biliary duct dilation. CBD: 1.1 cm at the hilum. Circumferential wall thickening of the extrahepatic CBD containing debris. Gallbladder: Right Kidney: No hydronephrosis. Spleen: Craniocaudal length 11 cm, normal. There are no splenic lesions. Other: Moderate volume ascites. With the patient supine and the transducer oriented perpendicular to the abdominal wall, an X was marked on the skin overlying the right lower quadrant. The following measurements were obtained: (1) Depth to en ter the fluid collection: 2.0 cm (2) Depth to mid fluid collection: 4.1 cm 5.9 x 2.5 x 3.0 cm gallbladder fossa postoperative collection, mildly decreased from prior. HEPATIC VASCULATURE: PORTAL SYSTEM: -Splenic Vein: Patent with antegrade flow (towards the liver). -Main PV: Patent with phasic antegrade flow (towards liver). 57-68 cm/sec -Right anterior PV: Patent with phasic antegrade flow (towards liver). 33 cm/sec -Right posterior PV: Patent with phasic antegrade flow (towards liver). 28 cm/sec -Left PV: Patent with phasic antegrade flow (towards liver). 16 cm/sec HEPATIC ARTERIES: - Main THIBODEAUX: Normal waveform PSV: 66- 68 cm/sec. RI: 0.78-0.82 - Right anterior THIBODEAUX: Normal waveform PSV: 45 cm/sec. RI: 0.73 - Right posterior THIBODEAUX: Normal waveform PSV: 61 cm/sec. RI: 0.73 - Left THIBODEAUX: Normal waveform PSV: 68 cm/sec. RI: 0.68 HEPATIC VEINS: -Left: Patent with triphasic waveform. -Middle: Patent with triphasic waveform. -Right: Patent with triphasic waveform. IVC: Patent with normal, phasic wave form. IMPRESSION: Patent hepatic vasculature with appropriately directed flow. CBD wall thickening containing debris. Recommend further evaluation with MR pancreas/biliary. Otherwise stable sonographic appearance of the transplant liver. Moderate volume ascites, marked in the right lower quadrant. ACTIONABLE RESULT: FOLLOW-UP Acuity: Actionable Findings: Pancreas/Biliary Routing Code: PB_1 Recommendation: MRI PANCREAS/BILIARY WO/W IV CONTRAST Time Frame: At the discretion of the clinical team. COMMUNICATION: Results will be communicated with the ordering provider via [employer] staff message or phone message by [facility] within 2 business days of report finalization. --END OF FINDING-- Stripper Apprentice: [facility] Transcribe Date/Time: Oct 08 2024 8:41A Dictated by : RAQUEL WILKES MD This examination was interpreted and the report reviewed and electronically signed by: RAQUEL WILKES MD on Oct 08 2024 9:38AM EST US ABD LIVER VASCULAR Result Date: 10/08/2024 * * *Final Report* * * DATE OF EXAM: Oct 08 2024 7:30AM U [id number] - US ABD LIVER VASCULAR / PROCEDURE REASON: Liver transplant * * * * Physician Interpretation * * * * EXAMINATION: LIVER VASCULAR ULTRASOUND WITH DOPPLER IMAGING CLINICAL HISTORY: Old T5 2625 with concern for portal vein thrombosis on CT 10/07/2024 TECHNIQUE: Sonography of the liver with color and spectral Doppler imaging of the hepatic vasculature was performed. Images were obtained and stored in a permanent archive. MQ: USLV_1 COMPARISON: CT 10/07/2024, liver vascular ultrasound 09/20/2024 RESULT: SonographicFindings: Pancreas: Normal sonographic appearance. Portions obscured: tail Liver: Echotexture: Normal, homogeneous. Echogenicity: Similar heterogeneously hypoechoic parenchyma within the right hepatic dome, related to ischemia or operative handling. Surface contour: Smooth Lesions: None. Biliary: No intrahepatic biliary duct dilation. CBD: 1.1 cm at the hilum. Circumferential wall thickening of the extrahepatic CBD containing debris. Gallbladder: Right Kidney: No hydronephrosis. Spleen: Craniocaudal length 11 cm, normal. There are no splenic lesions. Other: Moderate volume ascites. With the patient supine and the transducer oriented perpendicular to the abdominal wall, an X was marked on the skin overlying the right lower quadrant. The following measurements were obtained: (1) Depth to e nter the fluid collection: 2.0 cm (2) Depth to mid fluid collection: 4.1 cm 5.9 x 2.5 x 3.0 cm gallbladder fossa postoperative collection, mildly decreased from prior. HEPATIC VASCULATURE: PORTAL SYSTEM: -Splenic Vein: Patent with antegrade flow (towards the liver). -Main PV: Patent with phasic antegrade flow (towards liver). 57-68 cm/sec -Right anterior PV: Patent with phasic antegrade flow ([facility]owa rds liver). 33 cm/sec -Right posterior PV: Patent with phasic antegrade flow (towards liver). 28 cm/sec -Left PV: Patent with phasic antegrade flow (towards liver). 16 cm/sec HEPATIC ARTERIES: - MainHA: Normal waveform PSV: 66-68 cm/sec. RI: 0.78-0.82 - Right anterior THIBODEAUX: Normal waveform PSV: 45 cm/sec. RI: 0.73 - Right posterior THIBODEAUX: Normal waveform PSV: 61 cm/sec. RI: 0.73 - Left THIBODEAUX: Normal waveform PSV: 68 cm/sec. RI: 0.68 HEPATIC VEINS: -Left: Patent with triphasic waveform. -Middle: Patent with triphasic waveform. -Right: Patent with triphasic waveform. IVC: Patent with normal, phasic wave form. IMPRESSION: Patent hepatic vasculature with appropriately directed flow. CBD wall thickening containing debris. Recommend further evaluation with MR pancreas/biliary. Otherwise stable sonographic appearance of the transplant liver. Moderate volume ascites, marked in the right lower quadrant. ACTIONABLE RESULT: FOLLOW-UP Acuity: Actionable Findings: Pancreas/Biliary Routing Code: PB_1 Recommendation: MRI PANCREAS/BILIARY WO/W IV CONTRAST Time Frame: At the discretion of the clinical team. COMMUNICATION: Results will be communicated with the ordering provider via [employer] staff message or phone message by [facility] within 2 business days of report finalization. --END OF FINDING-- Stripper Apprentice: [facility] Transcribe Date/Time: Oct 08 2024 8:41A Dictated by : RAQULE WILKES MD This examination was interpreted and the report reviewed and electronically signed by: RAQUEL WILKES MD on Oct 08 2024 9:38AM EST CT ABDOMEN PELVIS WO CONTRAST Result Date: 10/07/2024 * * *Final Report* * * DATE OF EXAM: Oct 07 2024 3:00PM [facility] 0531 - CT ABD/PEL WO IVCON / PROCEDURE REASON: ILEUS, ASCITES * * * * Physician Interpretation * * * * EXAMINATION: CT ABDOMEN AND PELVIS WITHOUT IV CONTRAST CLINICAL HISTORY: Ileus/ascites. 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 TECHNIQUE: Non-IV contrast imaging of the abdomen and pelvis was performed using standard technique, scanning from just above the dome of the diaphragm to the symphysis pubis. Unenhanced imaging is limited for the evaluation of some intra-abdominal and pelvic pathology. MQ: CTAPWO_3 Contrast: IV: None CT Radiation dose: Integrated Dose-length product (DLP) for this visit = 263 mGy*cm. CT Dose Red uction Employed: Automated exposure control(AEC) and iterative recon COMPARISON: Ultrasound Dated 09/20/2024 and MRI dated 09/02/2024 RESULT: Abdomen / Pelvis: Liver: * Post OLT appearances again noted. * There is apparent interval luminal distention and hyperattenuation involving the main portal and right and left portal veins, concerning for acute portal venous thrombosis. * Persisting infiltrating hypodense area involving segments 8 and 4A (301/18). * No interval focal hepatic mass, allowingfor noncontrast study. Biliary: Gallbladder is surgically absent. No definite biliary dilatation noted. Spleen: No splenomegaly. Pancreas: Unremarkable. Adrenals: No mass. Kidneys: No calculus, hydronephrosis or finding to suggest a cyst or mass in the unenhanced kidney. GI Tract: The stomach is underdistended. Mildly distended small bowel loops, to a maximum of 2.9 cm (301/74), with normal caliber small bowel loops in the right lower quadrant. Gas-distended transverse colon. Scattered colonic diverticula. These appearances may represent partial small bowel obstruction. No evidence of extraluminal air. Lymph Nodes: No lymphadenopathy. Mesentery/peritoneum: Small to moderate volume ascites with generalized peritoneal stranding. Retroperitoneum: No mass. Vasculature: Suboptimally evaluated in the absence of IV contrast. Mild aortoiliac atherosclerotic changes, without aneurysm. Portal vein findings, as above. Pelvis: Moderate volume ascites. Urinary bladder, prostate and seminal vesicles are unremarkable. Bones/Soft Tissues: Stable loss of height of the T12 vertebral body with retropulsion. Interval anterior wedging of the T11 vertebral body, without significant retropulsion. Old rib fractures, with nonunion on the left (301/3). Osteopenia. Ascitic fluid is seen extending into a right inguinal hernia. Lower thorax: Moderate-sized bilateral pleural effusions, loculated on the right with bibasal atelectasis. Apparent loculated air within the right pleural cavity, partially visualized (301/1). This also appears to be present on the previous chest x-ray from 10/06/2024. Coronary calcifications. Trace pericardial fluid. Localizer images: No additional findings. IMPRESSION: 1. Appearances concerning for acute portal vein thrombosis in this patient with historyof recent OLT. Evaluation is suboptimal in the absence of IV contrast. Recommend correlation with ultrasound Doppler for confirmation. 2. Mildly distended small bowel loops with normal caliber small bowel in the right lower quadrant. Gas-distended transverse colon. Findings may represent low-grade,partial SBO. No extraluminal air noted. 3. Moderate volume ascites again seen. Moderate volume freeflowing left pleural effusion. 4. Apparent loculated right hydropneumothorax. Correlation with CT of the chest may be obtained for more definite evaluation. 5. Interval anterior wedging of the T11 vertebral body. COMMUNICATION: Communicated with DAVID NURARI on 10/07/2024 3:54 PM via verbal communication. Stripper Apprentice: [facility] Transcribe Date/Time: Oct 07 2024 3:17P Dictated by : JOSE GUADALUPE MURPHY MD This examination was interpreted and the report reviewed and electronically signed by: JOSE GUADALUPE MURPHY MD on Oct 07 2024 4:01PM EST CT ABD/PEL WO IVCON Result Date: 10/07/2024 * * *Final Report* * * DATE OF EXAM: Oct 07 2024 3:00PM [facility] 0531 - CT ABD/PEL WO IVCON / PROCEDURE REASON: ILEUS, ASCITES * * * * Physician Interpretation * * * * EXAMINATION: CT ABDOMEN AND PELVIS WITHOUT IV CONTRAST CLINICAL HISTORY: Ileus/ascites. 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 TECHNIQUE: Non-IV contrast imaging of the abdomen and pelvis was performed using standard technique, scanning from just above the dome of the diaphragm to the symphysis pubis. Unenhanced imaging is limited for the evaluation of some intra-abdominal and pelvic pathology. MQ: CTAPWO_3 Contrast: IV: None CT Radiation dose: Integrated Dose-length product (DLP) for this visit = 263 mGy*cm. CT Dose Red uction Employed: Automated exposure control(AEC) and iterative recon COMPARISON: Ultrasound Dated 09/20/2024 and MRI dated 09/02/2024 RESULT: Abdomen / Pelvis: Liver: * Post OLT appearances again noted. * There is apparent interval luminal distention and hyperattenuation involving the main portal and right and left portal veins, concerning for acute portal venous thrombosis. * Persisting infiltrating hypodense area involving segments 8 and 4A (301/18). * No interval focal hepatic mass, allowingfor noncontrast study. Biliary: Gallbladder is surgically absent. No definite biliary dilatation noted. Spleen: No splenomegaly. Pancreas: Unremarkable. Adrenals: No mass. Kidneys: No calculus, hydronephrosis or finding to suggest a cyst or mass in the unenhanced kidney. GI Tract: The stomach is underdistended. Mildly distended small bowel loops, to a maximum of 2.9 cm (301/74), with normal caliber small bowel loops in the right lower quadrant. Gas-distended transverse colon. Scattered colonic diverticula. These appearances may represent partial small bowel obstruction. No evidence of extraluminal air. Lymph Nodes: No lymphadenopathy. Mesentery/peritoneum: Small to moderate volume ascites with generalized peritoneal stranding. Retroperitoneum: No mass. Vasculature: Suboptimally evaluated in the absence of IV contrast. Mild aortoiliac atherosclerotic changes, without aneurysm. Portal vein findings, as above. Pelvis: Moderate volume ascites. Urinary bladder, prostate and seminal vesicles are unremarkable. Bones/Soft Tissues: Stable loss of height of the T12 vertebral body with retropulsion. Interval anterior wedging of the T11 vertebral body, without significant retropulsion. Old rib fractures, with nonunion on the left (301/3). Osteopenia. Ascitic fluid is seen extending into a right inguinal hernia. Lower thorax: Moderate-sized bilateral pleural effusions, loculated on the right with bibasal atelectasis. Apparent loculated air within the right pleural cavity, partially visualized (301/1). This also appears to be present on the previous chest x-ray from 10/06/2024. Coronary calcifications. Trace pericardial fluid. Localizer images: No additional findings. IMPRESSION: 1. Appearances concerning for acute portal vein thrombosis in this patient with history of recent OLT. Evaluation is suboptimal in the absence of IV contrast. Recommend correlation with ultrasound Dopplerfor confirmation. 2. Mildly distended small bowel loops with normal caliber small bowel in the right lower quadrant. Gas-distended transverse colon. Findings may represent low-grade, partial SBO. No extraluminal air noted. 3. Moderate volume ascites again seen. Moderate volume free flowing left pleural effusion. 4. Apparent loculated right hydropneumothorax. Correlation with CT of the chest may be obtained for more definite evaluation. 5. Interval anterior wedging of the T11 vertebral body. COMMUNICATION: Communicated with DAVID CRUZ on 10/07/2024 3:54 PM via verbal communication. Stripper Apprentice: [facility] Transcribe Date/Time: Oct 07 2024 3:17P Dictated by : JOSE GUADALUPE MURPHY MD This examination was interpreted and the report reviewed and electronically signed by: JOSE GUADALUPE MURPHY MD on Oct 07 2024 4:01PM EST [id number]^SI^ACN CT ABD/PEL WO IVCON Result Date: 10/07/2024 * * *Final Report* * * DATE OF EXAM: Oct 07 2024 3:00PM [facility] 0531 - CT ABD/PEL WO IVCON / PROCEDURE REASON: ILEUS, ASCITES * * * * Physician Interpretation * * * * EXAMINATION: CT ABDOMEN AND PELVIS WITHOUT IV CONTRAST CLINICAL HISTORY: Ileus/ascites. 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 TECHNIQUE: Non-IV contrast imaging of the abdomen and pelvis was performed using standard technique, scanning from just above the dome of the diaphragm to the symphysis pubis. Unenhanced imaging is limited for the evaluation of some intra-abdominal and pelvic pathology. MQ: CTAPWO_3 Contrast: IV: None CT Radiation dose: Integrated Dose-length product (DLP) for this visit = 263 mGy*cm. CT Dose Red uction Employed: Automated exposure control(AEC) and iterative recon COMPARISON: Ultrasound Dated 09/20/2024 and MRI dated 09/02/2024 RESULT: Abdomen / Pelvis: Liver: * Post OLT appearances again noted. * There is apparent interval luminal distention and hyperattenuation involving the main portal and right and left portal veins, concerning for acute portal venous thrombosis. * Persisting infiltrating hypodense area involving segments 8 and 4A (301/18). * No interval focal hepatic mass, allowingfor noncontrast study. Biliary: Gallbladder is surgically absent. No definite biliary dilatation noted. Spleen: No splenomegaly. Pancreas: Unremarkable. Adrenals: No mass. Kidneys: No calculus, hydronephrosis or finding to suggest a cyst or mass in the unenhanced kidney. GI Tract: The stomach is underdistended. Mildly distended small bowel loops, to a maximum of 2.9 cm (301/74), with normal caliber small bowel loops in the right lower quadrant. Gas-distended transverse colon. Scattered colonic diverticula. These appearances may represent partial small bowel obstruction. No evidence of extraluminal air. Lymph Nodes: No lymphadenopathy. Mesentery/peritoneum: Small to moderate volume ascites with generalized peritoneal stranding. Retroperitoneum: No mass. Vasculature: Suboptimally evaluated in the absence of IV contrast. Mild aortoiliac atherosclerotic changes, without aneurysm. Portal vein findings, as above. Pelvis: Moderate volume ascites. Urinary bladder, prostate and seminal vesicles are unremarkable. Bones/Soft Tissues: Stable loss of height of the T12 vertebral body with retropulsion. Interval anterior wedging of the T11 vertebral body, without significant retropulsion. Old rib fractures, with nonunion on the left (301/3). Osteopenia. Ascitic fluid is seen extending into a right inguinal hernia. Lower thorax: Moderate-sized bilateral pleural effusions, loculated on the right with bibasal atelectasis. Apparent loculated air within the right pleural cavity, partially visualized (301/1). This also appears to be present on the previous chest x-ray from 10/06/2024. Coronary calcifications. Trace pericardial fluid. Localizer images: No additional findings. IMPRESSION: 1. Appearances concerning for acute portal vein thrombosis in this patient with historyof recent OLT. Evaluation is suboptimal in the absence of IV contrast. Recommend correlation with ultrasound Doppler for confirmation. 2. Mildly distended small bowel loops with normal caliber small bowel in the right lower quadrant. Gas-distended transverse colon. Findings may represent low-grade,partial SBO. No extraluminal air noted. 3. Moderate volume ascites again seen. Moderate volume freeflowing left pleural effusion. 4. Apparent loculated right hydropneumothorax. Correlation with CT of the chest may be obtained for more definite evaluation. 5. Interval anterior wedging of the T11 vertebral body. COMMUNICATION: Communicated with DAVID CRUZ on 10/07/2024 3:54 PM via verbal communication. Stripper Apprentice: [facility] Transcribe Date/Time: Oct 07 2024 3:17P Dictated by : JOSE GUADALUPE MURPHY MD This examination was interpreted and the report reviewed and electronically signed by: JOSE GUADALUPE MURPHY MD on Oct 07 2024 4:01PM EST CT BRAIN WO IVCON Result Date: 10/07/2024 * * *Final Report* * * DATE OF EXAM: Oct 07 2024 3:00PM [facility] 0504 - CT BRAIN WO IVCON / PROCEDURE REASON: slurred speech * * * * Physician Interpretation * * * * EXAMINATION: CT BRAIN WO IVCON CLINICAL HISTORY: Slurred speech TECHNIQUE: Serial axial images without IV contrast were obtained from the vertex to the foramen magnum. MQ: CTBWO_3 CT Radiation dose: Integrated Dose-Le ngth Product (DLP) for this visit = 820 mGy*cm CT Dose Reduction Employed: Automated exposure control(AEC) and iterative recon COMPARISON: Head CT dated 08/27/2024, 08/23/2024 RESULT: Post-operative change: None. Acute change: No evidence of an acute infarct or other acute parenchymal process. Hemorrhage: No evidence of acute intracranial hemorrhage. ECASS hemorrhagic transformation score: Not Applicable Mass Lesion / Mass Effect: There is no evidence of an intracranial mass or extraaxial fluidcollection. No significant mass effect. Chronic change: Scattered patchy foci of low attenuation are present within the supratentorial white matter, a nonspecific finding that most commonly represents mild small vessel disease. Parenchyma:There is moderate generalized volume loss. Ventricles: Ventricular enlargement concordant with the degree of parenchymal volume loss. Paranasal sinuses and skull base: The visualized paranasal sinuses are grossly clear. The skull base and imaged soft tissues are unremarkable. Localizer images: No additional findings. IMPRESSION: NO CT EVIDENCE OF ACUTE INTRACRANIAL PROCESS. NO SIGNIFICANT INTERVAL CHANGE SINCE 08/27/2024. Stripper Apprentice: [facility] Transcribe Date/Time: Oct 07 2024 3:20P Dictated by : ROSAURA CERVANTES MD This examination was interpreted and the report reviewed and electronically signed by: ROSAURA CERVANTES MD on Oct 07 2024 3:22PM EST [id number] CT BRAIN WO IVCON Result Date: 10/07/2024 * * *Final Report* * * DATE OF EXAM: Oct 07 2024 3:00PM [facility] 0504 - CT BRAIN WO IVCON / PROCEDURE REASON: slurred speech * * * * Physician Interpretation * * * * EXAMINATION: CT BRAIN WO IVCON CLINICAL HISTORY: Slurred speech TECHNIQUE: Serial axial images without IV contrast were obtained from the vertex to the foramen magnum. MQ: CTBWO_3 CT Radiation dose: Integrated Dose-Le ngth Product (DLP) for this visit = 820 mGy*cm CT Dose Reduction Employed: Automated exposure control(AEC) and iterative recon COMPARISON: Head CT dated 08/27/2024, 08/23/2024 RESULT: Post-operative change: None. Acute change: No evidence of an acute infarct or other acute parenchymal process. Hemorrhage: No evidence of acute intracranial hemorrhage. ECASS hemorrhagic transformation score: Not Applicable Mass Lesion / Mass Effect: There is no evidence of an intracranial mass or extraaxial fluidcollection. No significant mass effect. Chronic change: Scattered patchy foci of low attenuation are present within the supratentorial white matter, a nonspecific finding that most commonly represents mild small vessel disease. Parenchyma:There is moderate generalized volume loss. Ventricles: Ventricular enlargement concordant with the degree of parenchymal volume loss. Paranasal sinuses and skull base: The visualized paranasal sinuses are grossly clear. The skull base and imaged soft tissues are unremarkable. Localizer images: No additional findings. IMPRESSION: NO CT EVIDENCE OF ACUTE INTRACRANIAL PROCESS. NO SIGNIFICANT INTERVAL CHANGE SINCE 08/27/2024. Stripper Apprentice: [facility] Transcribe Date/Time: Oct 07 2024 3:20P Dictated by : ROSAURA CERVANTES MD This examination was interpreted and the report reviewed and electronically signed by: ROSAURA CERVANTES MD on Oct 07 2024 3:22PM EST US abdomen limited Result Date: 10/07/2024 * * *Final Report* * * DATE OF EXAM: Oct 07 2024 10:35AM [id number] - US ABDOMEN LTD / PROCEDURE REASON: asictes * * * * Physician Interpretation * * * * Clinical information: Ascites Ascites survey was performed. Images were obtained and stored in a permanent archive. Ascites pr esent within all four quadrants, with moderate fluid volume within the right lower quadrant. Smaller volume ascites within the right upper quadrant, left upper quadrant, and left lower quadrant. Impression: Ascites, largest volume within the right lower quadrant Stripper Apprentice: [facility] Transcribe Date/Time: Oct 07 2024 10:50A Dictated by : AMARILIS MACK MD This examination was interpreted and thereport reviewed and electronically signed by: AMARILIS MACK MD on Oct 07 2024 10:51AM EST XR ABDOMEN 1 VWS Result Date: 10/06/2024 * * *Final Report* * * DATE OF EXAM: Oct 06 2024 2:59PM [id number] - XR ABDOMEN 1V SUPINE / PROCEDURE REASON: SOB, VS WNL * * * * Physician Interpretation * * * * EXAMINATION: XR ABDOMEN 1V SUPINE, XR CHEST 1V FRONTAL CLINICAL HISTORY: Shortness of breath Comparison: Abdominal x-ray October 03, 2024 RESULT: Lines, tubes, and devices: None Lungs and pleura: Bilateral pleural effusions, right greater than left and right lower lobe consolidation versus atelectasis. Cardiomediastinal silhouette: The cardiomediastinal silhouette is within normal limits given positioning and technique. Bowel: Dilated loops of small bowel up to 4.7 cm. Air is seen in the right colon. Bones/Soft tissues: Surgical clips right upper quadrant of the abdomen. IMPRESSION: 1. Bilateral pleural effusions, right greater than left and right lower lobe consolidation versus atelectasis. 2. Nonspecific dilation of loops of small bowel up to 4.7 cm. This could represent ileus or obstruction. Stripper Apprentice: [facility] Transcribe Date/Time: Oct 06 2024 4:21P Dictatedby : THERESA ORANTES MD This examination was interpreted and the report reviewed and electronically signed by: THERESA ORANTES MD on Oct 06 2024 4:23PM EST XR CHEST 1 VWS Result Date: 10/06/2024 * * *Final Report* * * DATE OF EXAM: Oct 06 2024 2:59PM [id number] - XR CHEST 1V FRONTAL / PROCEDURE REASON: SOB, stable VS * * * * Physician Interpretation * * * * EXAMINATION: XR ABDOMEN 1V SUPINE, XR CHEST 1V FRONTAL CLINICAL HISTORY: Shortness of breath Comparison: Abdominalx-ray October 03, 2024 RESULT: Lines, tubes, and devices: None Lungs and pleura: Bilateral pleural effusions, right greater than left and right lower lobe consolidation versus atelectasis. Cardiomediastinal silhouette: The cardiomediastinal silhouette is within normal limits given positioning and technique. Bowel: Dilated loops of small bowel up to 4.7 cm. Air is seen in the right colon. Bones/Soft tissues: Surgical clips right upper quadrant of the abdomen. IMPRESSION: 1. Bilateral pleural effusions, right greater than left and right lower lobe consolidation versus atelectasis. 2. Nonspecific dilation of loops of small bowel up to 4.7 cm. This could represent ileus or obstruction. Stripper Apprentice: [facility] Transcribe Date/Time: Oct 06 2024 4:21P Dictatedby : THERESA ORANTES MD This examination was interpreted and the report reviewed and electronically signed by: THERESA ORANTES MD on Oct 06 2024 4:23PM EST XR ABDOMEN 1V SUPINE Result Date: 10/06/2024 * * *Final Report* * * DATE OF EXAM: Oct 06 2024 2:59PM [id number] - XR ABDOMEN 1V SUPINE / PROCEDURE REASON: SOB, VS WNL * * * * Physician Interpretation * * * * EXAMINATION: XR ABDOMEN 1V SUPINE, XR CHEST 1V FRONTAL CLINICAL HISTORY: Shortness of breath Comparison: Abdominal x-ray October 03, 2024 RESULT: Lines, tubes, and devices: None Lungs and pleura: Bilateral pleural effusions, right greater than left and right lower lobe consolidation versus atelectasis. Cardiomediastinal silhouette: The cardiomediastinal silhouette is within normal limits given positioning and technique. Bowel: Dilated loops of small bowel up to 4.7 cm. Air is seen in the right colon. Bones/Soft tissues: Surgical clips right upper quadrant of the abdomen. IMPRESSION: 1. Bilateral pleural effusions, right greater than left and right lower lobe consolidation versus atelectasis. 2. Nonspecific dilation of loops of small bowel up to 4.7 cm. This could represent ileus or obstruction. Stripper Apprentice: [facility] Transcribe Date/Time: Oct 06 2024 4:21P Dictatedby : THERESA ORANTES MD This examination was interpreted and the report reviewed and electronically signed by: THERESA ORANTES MD on Oct 06 2024 4:23PM EST US abdomen limited Result Date: 10/06/2024 * * *Final Report* * * DATE OF EXAM: Oct 06 2024 12:59PM S0U [id number] - US ABDOMEN LTD / PROCEDURE REASON: distended abdomen/ascities survey * * * * Physician Interpretation * * * *ASCITES SURVEY INDICATION: Ascites COMPARISON: 09/20/2024 US liver vascular TECHNIQUE: Real-time grayscale ultrasound imaging of the 4 quadrants was performed. Images were obtained and stored in a permanent archive. RESULT: See impression. IMPRESSION: Small volume of intraperitoneal ascites. Stripper Apprentice[facility] Transcribe Date/Time: Oct 06 2024 2:02P Dictated by : DANIEL LACY MD This examination was interpreted and the report reviewed and electronically signed by: DANIEL LACY MD on Oct 06 2024 2:03PM EST XR foot right 3+ vws Result Date: 10/05/2024 * * *Final Report* * * DATE OF EXAM: Oct 05 2024 2:07PM S0X 5337 - XR FOOT 3V AP/LAT/OBL RT / PROCEDURE REASON: pain in big toe * * * * Physician Interpretation * * * * EXAMINATION: XR FOOT 3V AP/LAT/OBL RT CLINICAL HISTORY: pain in big toe TECHNOLOGIST PROVIDED HISTORY: pain in big toe TECHNIQUE: XR FOOT 3V AP/LAT/OBL RT Laterality: RIGHT Number of different views (projections): 3 M: XB_1 COMPARISON: None available. RESULT: No acute fracture or dislocation. Mild first MTPand scattered interphalangeal joint space narrowing. The joint space are otherwise maintained. Small plantar spur. Vascular calcifications. Diffuse soft tissue edema. IMPRESSION: No acute osseous abnormality. Soft tissue edema. Stripper Apprentice: [employer] Transcribe Date/Time: Oct 05 2024 3:09P Dictated by : ROLANDO BENAVIDES DO This examination was interpreted and the report reviewed and electronically signed by: WARREN EASLEY MD on Oct 05 2024 3:17PM EST XR FOOT GENERAL 3V AP/LAT/OBL RIGHT Result Date: 10/05/2024 * * *Final Report* * * DATE OF EXAM: Oct 05 2024 2:07PM S0X 5337 - XR FOOT 3V AP/LAT/OBL RT / PROCEDURE REASON: pain in big toe * * * * Physician Interpretation * * * * EXAMINATION: XR FOOT 3V AP/LAT/OBL RT CLINICAL HISTORY: pain in big toe TECHNOLOGIST PROVIDED HISTORY: pain in big toe TECHNIQUE: XR FOOT 3V AP/LAT/OBL RT Laterality: RIGHT Number of different views (projections): 3 M: XB_1 COMPARISON: None available. RESULT: No acute fracture or dislocation. Mild first MTPand scattered interphalangeal joint space narrowing. The joint space are otherwise maintained. Small plantar spur. Vascular calcifications. Diffuse soft tissue edema. IMPRESSION: No acute osseous abnormality. Soft tissue edema. Stripper Apprentice: [employer] Transcribe Date/Time: Oct 05 2024 3:09P Dictated by : ROLANDO BENAVIDES DO This examination was interpreted and the report reviewed and electronically signed by: WARREN EASLEY MD on Oct 05 2024 3:17PM DAVID MALIK DO High complexity of service: time > 50 minutes involving therapy documentation review, face time,floor time, review of recent diagnostics tests with interpretation, interpretation of diagnostics tests to formulate new plans or observe current stability, coordination of care and/or family discussion. * Betty Dias DO - 11/04/2024 2:54 PM EDT Medicine Follow Up Note [facility] Patient identification: Name: Charles Blandon : 1955 Admitted: 10/30/2024 7:01 PM Subjective: Fatigued today. Unable to do as much therapy. Complaining of left lower back pain, 11/24. Tender to palpation. No ecchymosis. He is afebrile, no orthostatic hypotension appreciated on exam. He denies cough, fever, chills, dysuria. ROS: Acute on chronic back pain Objective: BP 120/76 Pulse 74 Temp 96.8 ??F (36 ??C) (Oral) Resp 16 Ht 5' 9 (1.753 m) Wt 165 lb 8 oz (75.1 kg) SpO2 96% BMI 24.44 kg/m?? Intake/Output last 3 shifts: I/O last 3 completed shifts: In: 640 [P.O.:640] Out: 1330 [Drains:30] Intake/Output this shift: I/O this shift: In: 240 [P.O.:240] Out: 200 Weight: Weight change: 4 lb 8 oz (2.041 kg) Physical Exam: General: Awake, alert. In mild distress HEENT: NCAT Lungs: CTA b/l Heart; S1 S2 normal Abdomen: non-distended Extremities: no edema Assessment/Plan: Hx of Liver transplantation CBD stent Bile leak (s/p perihepatic aspiration and drain placement) Continue daptomycin for 4 week course Repeat ERCP in 1 month Continue Bactrim, Prograf, Valcyte Monitor CMV Continue baby aspirin due to thrombocytosis VRE (vancomycin-resistant Enterococci) infection Continue Daptomycin, monitor CK Cytomegalovirus (CMV) viremia Continue Valcyte Follow CMV levels qMon Fluid overload Continue Lasix Trans daily weights Nausea & vomiting Ileus without SBO Continue regular diet Continue bowel regimen Zofran PRN Chronic bilateral low back pain without sciatica History of T11 and T12 compression fractures Consulted Neurosurgery - not an appropriate surgical candidate Pain control PT/OT Follow up lumbar x-ray Vertigo CT brain 10/07: negative MRI brain 10/24: negative for acute abnormality follow up with Vestibular Neurologist, Dr. Roach Moderate-sized loculated right hydropneumothorax. Medium-sized left pleural effusion RVP (+) parainfluenza 3 S/p left thoracentesis 10/14: 320 cc drained, culture NGTD Stable, currently on room air Anemia due to multiple mechanisms Monitor Severe protein-calorie malnutrition Continue regular diet Nutrition following GERD (gastroesophageal reflux disease) Continue pepcid BID DVT ppx; Heparin BID Betty Dias D.O. 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 male who presents for rehab s/p liver transplant, US normal flow, biliary sphintertomy and stent to CBD, VRE on daptomycin, valcyte for CMV, R sided locumated pleural effusion, s/p L thoracentesis, 320 ml. 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 male who presents for rehab s/p DBD OLT, on acyclovir bactrim tacrolimu, prednisone. Elevated BS on steroids treated by endocrine now on humalog not on treatement at home,presented with alcohol inudced cirrhosis, portal HTN, ascites, hepatic encephalopathy, esophageal va rices, hereditary telangiectasia and barets esophagus, basal cell excision 2017, recent hepatocellular carcinoma. Previously denied transplant suspected T10 mets from HCC but biopsy negative. R pleural efusion 09/10. Encephalopathy and ascites preoperative. Preop cath and diffuse CAD but a lession sign in circumflex FFR 0.79 after OM2 treated managed medically. Echocardiogram: Impression CONCLUSIONS: - Technically difficult exam due to suboptimal positioning and body habitus. - Exam indication: Shortness of Breath - Left ventricular systolic function is normal. EF = 55 ?? 5% (visual est.) - The right ventricle is normal in size. Right ventricular systolic function is normal. - Exam was compared with the prior echocardiographic exam performed on 05/01/2024. no change, except for plerual effusion not seen today Preop [facility] Charles Blandon is a 68 year old male with history of alcohol-related cirrhosis with portal hypertension, ascites, esophageal varices, GERD, Tipton's esophagus, gout, hyperlipidemia and hypertension who presents for left heart catheterization for preoperative planning of liver transplant. Access Point Sheath Size Hemostasis Method Right Radial Artery 5F Short Radial TR band + + DIAGNOSTIC FINDINGS + + Coronary Anatomy: Right Dominant Injection Site(s): Coronary Artery and Aorta LMT: The LMT has mild luminal irregularities. Additional Comment: The LMT is a large caliber segment that supplies the LAD and LCx. LAD: The mid LAD is narrowed 40 % - focal disease. The 2nd diagonal - moderate diffuse disease. Additional Comment: The LAD supplies two diagonal branches before reaching toward the apex. There is a 40% stenosis in the mid LAD between the two diagonal branches. The second diagonal, which is small caliber, has moderate diffuse disease. Cathworks FFR across LAD was not significant 0.95. There is mild diffuse disease elsewhere in the vessel. LCX: The proximal circumflex is narrowed 40 % - focal disease. The distal circumflex is narrowed 70 % - focal disease. Additional Comment: The LCx is a large caliber vessel that supplies two obtuse marginal branches (the first of which is very small caliber) before tapering. There is a 40% stenosis in the proximal LCx, a 70% stenosis of the continuation of the LCx after the OM2, and mild diffuse disease elsewhere. Of note, this LCx continuation is small caliber. RAMUS: Ramus Status: Not Applicable. RCA: The proximal RCA is narrowed 30 % - focal disease. The right posterior descending artery RCA is narrowed 70 % - focal disease. Additional Comment: The RCA is a large caliber, dominant vessel that supplies two RV marginal branches, a PDA then continues in the AV groove to supply a few small caliber PL branches. There is a 70% stenosis of the PDA that is positive by cathworks (FFR 0.79). Proximal RCA has 30% disease. mpression: 1. Right dominant coronary system 2. Obstructive coronary artery disease of the distal LCx (following takeoff of the OM2) and the rPDA. Recommended Treatment: Further discussion with transplant team. Plan: - Ongoing workup for liver transplantation - Multidisciplinary discussion regarding the management of obstructive coronary artery disease. - Optimal medical management of coronary artery disease per primary senior investment analyst. Discharge Summary 69 yo male with etoh cirrhosis c/b HCC s/p DCD OLT w placement of R chest drain on 09/09/[address] Nava . Pt dc to [facility] 09/29 and returned for admission on 10/07 w increased Shortness of Breath and diarrhea. Pulmonary consulted and did not recommend thoracentesis but diuresis. Zosyn started for PNA coverage. RVP (+) parainfluenza and supportive care given. LV US (10/08) patent hepatic vasculature w appropriate directed flow. CBD wall thickening containing debris. Pt w notable rising alk phos through out hospital stay w decision to proceed w ERCP. ERCP (10/15) filling defects c/w stones and sludge.Single moderate biliary stricture found in common hepatic duct. Bile leak found eminating from the donor cystic duct remnant, appeared contained. Biliary tree swept and pus and debris found. Large stone proximal to the stenosis could not be removed. CT abd/pelvis w IV contrast (10/16) 5.2cm GB fossa collection, likely contained bile leak. Stable to slightly decreased size of geographic low attenuation in the R hepatic lobe, possibly inflammatory or evolving infarct. Patient underwent imaging guided abdominal drain placement into collection on 10/17. 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 ID consulted and Daptomycin was started. Patient had a repeat CT of the abdomen on 10/18 due to abdominal pain. It showed moderate ascites, left pleural effusion, stable right hydropneumothorax, and abdominal drain catheter with decompression of the gallbladder fossa collection. Patient with abdominal pain/distension with nausea and vomiting. Xray of the abdomen on 10/24 showedgastric gaseous distension and scattered gas filled nondilated small bowel and colon. An NG tube was placed on 10/24. He had a CT of the abdomen on 10/24 which showed decrease of the gallbladder fossa collection, moderate ascites, new peritoneal thickening/enhancement, and percutaneous drain. Patientwith improved symptoms so NG tube was removed on 10/25/24. He had a PICC line placed on 10/24/24 to continue antibiotic treatment until 11/12/24. Patient had developed chest pain with shortness of breath on 10/14. EKG on 10/14 showed normal sinus rhythm, HsTNT with no significant increase, and ECHO on 10/17 showed an EF of 55% with normal LV function. His chest pain and breathing improved. Patient had a thoracentesis on 10/14 with cultures being negative for infection and cytology was negative. Patient was given furosemide to manage edema whichimproved. Patient with history of T11 and T12 compression fractures. He reported increased back pain so consult with neurosurgery who recommended no further imaging and patient was currently not an appropriatesurgical candidate. Patient with dizziness and vertigo. MRI brain completed on 10/24 which showed noevidence of acute intracranial abnormality and sequela of chronic small vessel disease. Results of MRI brain were discussed with neurology who recommended outpatient followup with Vestibular Neurologist. 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 Consult with PM&R who recommended acute rehab. Patient was stable for discharge on 10/30/24. Current Facility-Administered Medications: acetaminophen (TYLENOL) 160 MG/5ML solution 500 mg, 500 mg, Oral, Q6H PRN, David Cruz DO alum & mag hydroxide-simeth enteral suspension 15 mL, 15 mL, Oral, Q4H PRN, David Cruz DO, 15 mL at 11/02/24 0520 aspirin EC tablet 81 mg, 81 mg, Oral, Once a day, David Cruz DO, 81 mg at 11/03/24 0844 bisacodyl (DULCOLAX) suppository 10 mg, 10 mg, Rectal, Daily PRN, David Cruz DO DAPTOmycin (CUBICIN) 700 mg in sodium chloride 0.9 % 114 mL IVPB, 700 mg, Intravenous, Q24H, David Cruz DO, 700 mg at 11/03/24 1358 epoetin omar (PROCRIT) injection 15,000 Units, 15,000 Units, Subcutaneous, Once per day on Monday, Chelsea Cunningham MD, 15,000 Units at 11/01/24 0750 famotidine (PEPCID) tablet 20 mg, 20 mg, Oral, 2 times per day, David Cruz DO, 20 mg at 11/03/24 0844 furosemide (LASIX) tablet 40 mg, 40 mg, Oral, 2 times per day, Chelsea Cunningham MD, 40 mg at 11/03/24 1630 heparin (porcine) injection 5,000 Units, 5,000 Units, Subcutaneous, Q12H CRISTIN, David Cruz DO,5,000 Units at 11/03/24 0845 magnesium hydroxide (MILK OF MAGNESIA) 400 MG/5ML suspension 30 mL, 30 mL, Oral, Daily PRN, David Real DO magnesium oxide tablet 800 mg, 800 mg, Oral, 3 times per day, Suze Jenkins MD, 800 mg at 0 methocarbamol (ROBAXIN) tablet 750 mg, 750 mg, Oral, TID PRN, David Cruz DO, 750 mg at 11/03/24 163 metOLazone (ZAROXOLYN) tablet 10 mg, 10 mg, Oral, Once a day, Chelsea Cunningham MD, 10 mg at 11/03/24 182 mirtazapine (REMERON) tablet 7.5 mg, 7.5 mg, Oral, Nightly, David Cruz DO, 7.5 mg at 11/02/242117 multivitamin w/ minerals (THERA M PLUS) tablet/capsule 1 tablet, 1 tablet, Oral, Once a day, David Cruz DO, 1 tablet at 11/03/24 0844 ondansetron ODT (ZOFRAN-ODT) disintegrating tablet 4 mg, 4 mg, Oral, Q6H PRN, Suze Jenkins MD, 4 mg at 11/03/24 1241 oxyCODONE (ROXICODONE) immediate release tablet 10 mg, 10 mg, Oral, Q6H PRN, Suze Jenkins MD, 10 mg at 11/03/24 1631 pantoprazole (PROTONIX) EC/DR tablet 40 mg, 40 mg, Oral, BID AC, David Cruz DO, 40 mg at 11/03/24 1631 polyethylene glycol (MIRALAX) packet 17 g, 17 g, Oral, Once a day, David Cruz DO senna (SENOKOT) tablet 2 tablet, 2 tablet, Oral, Nightly, David Cruz DO, 2 tablet at 11/02/242117 sulfamethoxazole-trimethoprim (BACTRIM) 800-160 MG per tablet double-strength 1 tablet, 1 tablet, Oral, Once per day on Monday, David Cruz DO, 1 tablet at 11/01/24 0919 tacrolimus (PROGRAF) capsule 6 mg, 6 mg, Oral, 2 times per day, Suze Jenkins MD, 6 mg at 829 tamsulosin (FLOMAX) 24 hr capsule 0.4 mg, 0.4 mg, Oral, Nightly, David Nurari, DO, 0.4 mg at 11/02/242117 traZODone (DESYREL) tablet 50 mg, 50 mg, Oral, Nightly, David Nurari, DO, 50 mg at 11/02/242117 ursodiol (ACTIGALL) capsule 300 mg, 300 mg, Oral, 3 times per day, David Nurari, DO, 300 mg at 11/03/24 1631 valGANciclovir (VALCYTE) tablet 900 mg, 900 mg, Oral, 2 times per day, David Nurari, DO, 900 mgat 11/03/24 0844 PHYSICAL EXAM: Vital signs: Vitals: 11/02/24 0729 11/02/24199911/03/24 0400 11/03/24 0737 BP: 134/88 139/84 143/81 Pulse: 79 76 78 Resp: 17 18 Temp: 98.3 ??F (36.8 ??C) 97 ??F (36.1 ??C) 98 ??F (36.7 ??C) TempSrc: Oral Oral Oral SpO2: 97% 96% 97% Weight: 161 lb (73 kg) Height: Weight: Admit Weight: 159 lb (72.1 kg) Latest Weight: 161 lb (73 kg) BP 143/81 Pulse 78 Temp 98 ??F (36.7 ??C) (Oral) Resp 18 Ht 5' 9 (1.753 m) Wt 161 lb (73kg) SpO2 97% BMI 23.78 kg/m?? General Appearance: Alert, cooperative, no distress, appears stated age Head: Normocephalic, without obvious abnormality, atraumatic Eyes: PERRL, conjunctiva/corneas clear, EOM's intact, fundi benign, both eyes Ears: Normal TM's and external ear canals, both ears Nose: Nares normal, septum midline, mucosa normal, no drainage or sinus tenderness Throat: Lips, mucosa, and tongue normal; teeth and gums normal Neck: Supple, symmetrical, trachea midline, no adenopathy, thyroid: not enlarged, symmetric, no tenderness/mass/nodules, no carotid bruit or JVD Back: Symmetric, no curvature, ROM normal, no CVA tenderness Lungs: Clear to auscultation bilaterally, respirations unlabored Chest Wall: No tenderness or deformity Heart: Regular rate and rhythm, S1, S2 normal, no murmur, rub or gallop Abdomen: Soft, non-tender, bowel sounds active all four quadrants, no masses, no organomegaly Genitalia: Normal male Rectal: Normal tone, normal prostate, no masses or tenderness; guaiac negative stool Extremities: Extremities normal, atraumatic, no cyanosis or edema Pulses: 2+ and symmetric Skin: Skin color, texture, turgor normal, no rashes or lesions Lymph nodes: Cervical, supraclavicular, and axillary nodes normal Neurologic: Normal Lab Results: CBC: Recent Labs Lab Units 11/02/24 0640 WBC k/uL 4.05 RBC AUTO m/uL 2.77* HEMOGLOBIN g/dL 8.3* HEMATOCRIT % 25.9* MCV fL 93.5 PLATELETS AUTO k/uL 570* CBC with Differential: Recent Labs Lab Units 11/02/24 0640 WBC k/uL 4.05 RBC AUTO m/uL 2.77* HEMOGLOBIN g/dL 8.3* HEMATOCRIT % 25.9* PLATELETS AUTO k/uL 570* MCV fL 93.5 MCH pg 30.0 MCHC g/dL 32.0 [ H/H: Recent Labs Lab Units 11/02/24 0640 HEMOGLOBIN g/dL 8.3* HEMATOCRIT % 25.9* BMP: Recent Labs Lab Units 11/03/24 0505 SODIUM mmol/L 134* POTASSIUM mmol/L 4.9 CHLORIDE mmol/L 101 CO2 mmol/L 27 BUN mg/dL 8* CREATININE mg/dL 0.87 GLUCOSE mg/dL 103* CALCIUM mg/dL 8.3* ANION GAP mmol/L 6* MG/PHOS: Recent Labs Lab Units 11/03/24 0505 MAGNESIUM mg/dL 1.7 PHOSPHORUS mg/dL 4.4 CKMB: Invalid input(s): CKMB;2 PT/INR: PTT: BNP: Troponin: Last 3 Troponin: Invalid input(s): TROPONINI;3 U/A: Invalid input(s): PROTUA , EPITH , BACTERIA CMP: Recent Labs Lab Units 11/03/24 0505 11/01/24 0501 10/31/24 0452 SODIUM mmol/L 134* < > 136 POTASSIUM mmol/L 4.9 < > 5.1 CHLORIDE mmol/L 101 < > 102 CO2 mmol/L 27 < > 22 BUN mg/dL 8* < > 8* CREATININE mg/dL 0.87 < > 0.82 GLUCOSE mg/dL 103* < > 82 PROTEIN TOTAL g/dL -- -- 5.0* CALCIUM mg/dL 8.3* < > 8.1* ALBUMIN g/dL 2.6* < > 2.4* BILIRUBIN, TOTAL mg/dL -- -- 0.3 ALKALINE PHOSPHATASE U/L -- -- 158* ALT U/L -- -- 8* AST U/L -- -- 16 ANION GAP mmol/L 6* < > 12 < > = values in this interval not displayed. LFT's: Recent Labs Lab Units 10/31/24 0452 PROTEIN TOTAL g/dL 5.0* ALKALINE PHOSPHATASE U/L 158* AST U/L 16 ALT U/L 8* Calcium: Recent Labs Lab Units 11/03/24 0505 CALCIUM mg/dL 8.3* Ionized Calcium: Invalid input(s): IONCA ABG: Invalid input(s): BDEF HgBA1c: Lipid Panel: Invalid input(s): LDLCALCU , CHOLHDLR TSH: Fibrinogen: Glucose Last 3 Days: Imaging: I have reviewed all lmaging and testing from the last 24 hrs CALI IRVING MD 11/03/24 7:20 PM EDT * Chelsea Cunningham MD - 11/03/2024 5:03 PM EDT Nephrology Progress Note Subjective: Interval History: Charles Blandon intermittent shortness of breath and abdominal distention Patient medications: Reviewed, see medication history. Objective: Vital signs in last 24 hours: Temp: [97 ??F (36.1 ??C)-98 ??F (36.7 ??C)] 98 ??F (36.7 ??C) Pulse: [76-78] 78 Resp: [18] 18 BP: (139-143)/(81-84) 143/81 Intake/Output last 3 shifts: I/O last 3 completed shifts: In: 720 [P.O.:720] Out: 2560 [Drains:60] Intake/Output this shift: I/O this shift: In: 440 [P.O.:440] Out: - Weight: Wt Readings from Last 3 Encounters: 11/03/24 161 lb (73 kg) 10/07/24 164 lb 4.8 oz (74.5 kg) Physical Exam: Chest: Decreased air entry with basal crackles to auscultation, no added sounds Heart: RRR, normal S1, S2 Abdomen: Soft lax, distended abdomen with ascites no HSM, +BS, no tenderness. LL: no edema, distal pulses intact. CONTINUOUS IMPROVEMENT CONSULTANT: Conscious, alert and oriented, no focal motor or sensory deficit. Labs: CBC: Recent Labs Lab Units 11/02/24 0640 WBC k/uL 4.05 RBC AUTO m/uL 2.77* HEMOGLOBIN g/dL 8.3* HEMATOCRIT % 25.9* MCV fL 93.5 PLATELETS AUTO k/uL 570* BMP: Recent Labs Lab Units 11/03/24 0505 SODIUM mmol/L 134* POTASSIUM mmol/L 4.9 CHLORIDE mmol/L 101 CO2 mmol/L 27 BUN mg/dL 8* CREATININE mg/dL 0.87 GLUCOSE mg/dL 103* CALCIUM mg/dL 8.3* ANION GAP mmol/L 6* Additional comments: None Assessment/ Plan: Charles Blandon is a 69 year old male with a past medical history CKD 3 baseline creatinine 1.0-1.1,eGFR 60's-70's, HHT, Tipton's esophagus, and ETOH cirrhosis complicated by portal HTN, ascites, HE, large EV, and recently diagnosed HCC. He was admitted on to [facility] on 08/23 with altered mental status and hyponatremia. He was subsequently listed for liver transplant on 09/04/24. Now s/p DCD-OLT on 09/09/24. Patient was treated for RENATE Cr >2.8, resolved 09/16. Status improved and discharged to [facility] on 09/29. Patient returned to [facility] for admission on 10/07 w increased Shortness of Breath anddiarrhea. Pulmonary consulted and did not recommend thoracentesis but diuresis. Zosyn started for PNA coverage. RVP (+) parainfluenza and supportive care given. Required ERCP 10/15. Stay was complicated by Bile leak, image guided abdominal drain placement into collection with posituve cultures for E.Faecium. Started on IV dapotmycin, ordered until 11/12/24. Developed left pleural effusion requiringdiuresis and thoracentesis on 10/14 as well as gastric gaseous distension and scattered gas filled nondilated small bowel and colon requiring NG tube placement. ECHO on 10/17 showed an EF of 55% with normal LV function. Stay was further complicated by severe back pain, MRI obtained per neurology. 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 Pt discharged to [facility] on 10/30. RENATE secondary to prerenal azotemia in setting of hypotension (resolved) on CKD stage 3 Cr stable at baseline, will continue to follow the trend Creatinine 0.8 HTN Currently off antihypertensives, BP well controlled Will continue to follow the trend of BP HFpEF Fluid overload and anasarca Chest x-ray with components of edema Ultrasound abdomen showed moderate ascites Last echo 10/17 with EF 55% Required paracentesis at different occasions last October 30 On lasix 40 mg daily increase to twice a day Metolazone 10 mg for 2 days Monitor urine output and daily weight Anemia Hgb 7.9, on MARGO therapy will continue to trend Liver Transplant September 04, 2024 On bactrim and tacrolimus and valcyte Will continue to follow the trend of kidney function Biliary stent infection On daptomycin until 11/13 Hypomagnesemia Given 2 g MagSulfat IV, will continue to follow the trend. Continue scheduled PO mag oxide 800 mg TID Results of MRI brain were discussed with neurology who recommended outpatient followup with Vestibular Neurologist CHELSEA CUNNINGHAM MD Time spent on counseling/coordination of care: 45 Minutes Total time spent with patient: 15 Minutes * Taylor Hargrove MD - 11/03/2024 3:45 PM EDT Rehab Progress Note 11/03/2024 Patient Name: Charles Blandon Etiologic Diagnosis: Critical Illness Myopathy Rehab Impairment Code: Neurologic Conditions: 03.8 Neuromuscular Disorders Cc: Weakness History of Present Illness: 69 year old male with PMHx: alcohol-induced cirrhosis, c/b portal HTN, ascites, hepatic encephalopathy (HE), large esophageal varices (EV), hereditary hemorrhagic telangiectasia (HHT) and Tipton???sesophagus . Recently diagnosed with hepatocellular carcinoma (HCC). S/p liver transplant, biliary sphintertomy and stent to CBD, VRE on daptomycin, valcyte for CMV, s/p L thoracentesis. PLAN: IM, ID, Nephro, Pulm, Cardio Consult Psychologist consultation and evaluation, Melatonin, Trazodone; remeron Biweekly immunosuppression labs, viral surveillance titre's weekly and biweekly IDT with liver transplant team ATB Daptomycin IV to complete 11/12 Prophylaxis: Acyclovir, Bactrim, Nystatin swish/swallow completes 09/30 Immunosuppression: prograf bid, cellcept bid, prednisone completed 09/30 Cardio: Midodrine tid to keep BP normal; Lasix for fluid overload Bowel Program: Miralax, Colace, Senna, Dulcolax Glycemic Control:Lispro Bladder Retraining and eval for high PVR and IC if >300, Flomax Nutritional Support - Adult Diet Regular; 7 Regular (Regular Texture); 0 Thin (All Liquids), magnesium supplementation; zofran added GI prophylaxis: Protonix Fall Prevention Isolation: No active isolations Pain management: Acetaminophen, Oxycodone, Lidocaine, Robaxin DVT prophylaxis: Lovenox Subjective: Patient continues to have nausea with poor oral intake. He has not asked the nurse for his PRN Zofran. He has been passing gas and had a BM today. Additionally, patient is feeling very distended today. He feels his abdomen has significantly increased since yesterday, and compared it to the days when he had liver issues . IM following and US abdomen ordered. Objective: Vital signs: Last 24 hours: Temp: [97 ??F (36.1 ??C)-98 ??F (36.7 ??C)] 98 ??F (36.7 ??C) Pulse: [76-78] 78 Resp: [18] 18 BP: (139-143)/(81-84) 143/81 Physical Exam: General: not in distress Awake, alert, oriented ENT: no oral thrush, throat clear Heart: Regular rate and rhythm Lungs: clear to auscultation, no wheezing Abdomen: positive bowel sound, soft, mildly tender, tympanic Skin: incisions look clean and healing. No drainage noted. Current Facility-Administered Medications Medication Dose Route Frequency Provider Last Rate Last Admin acetaminophen (TYLENOL) 160 MG/5ML solution 500 mg 500 mg Oral Q6H PRN David Cruz, DO alum & mag hydroxide-simeth enteral suspension 15 mL 15 mL Oral Q4H PRN David Cruz, DO 15mL at 11/02/24 0520 aspirin EC tablet 81 mg 81 mg Oral Once a day David Cruz, DO 81 mg at 11/03/24 0844 bisacodyl (DULCOLAX) suppository 10 mg 10 mg Rectal Daily PRN David Cruz, DO DAPTOmycin (CUBICIN) 700 mg in sodium chloride 0.9 % 114 mL IVPB 700 mg Intravenous Q24H David Cruz DO 700 mg at 11/03/24 1358 epoetin omar (PROCRIT) injection 15,000 Units 15,000 Units Subcutaneous Once per day on Monday Chelsea Cunningham MD 15,000 Units at 11/01/24 0750 famotidine (PEPCID) tablet 20 mg 20 mg Oral 2 times per day David Cruz DO 20 mg at 11/03/24 0844 furosemide (LASIX) tablet 40 mg 40 mg Oral 2 times per day Chelsea Cunningham MD heparin (porcine) injection 5,000 Units 5,000 Units Subcutaneous Q12H [facility] David Cruz, DO 5,000 Units at 11/03/24 0845 magnesium hydroxide (MILK OF MAGNESIA) 400 MG/5ML suspension 30 mL 30 mL Oral Daily PRN David Cruz, DO magnesium oxide tablet 800 mg 800 mg Oral 3 times per day Suze Jenkins MD 800 mg at 11/03/24 0844 methocarbamol (ROBAXIN) tablet 750 mg 750 mg Oral TID PRN David Cruz DO 750 mg at 11/02/24 1141 metOLazone (ZAROXOLYN) tablet 10 mg 10 mg Oral Once a day Chelsea Cunningham MD mirtazapine (REMERON) tablet 7.5 mg 7.5 mg Oral Nightly David Cruz DO 7.5 mg at 11/02/242117 multivitamin w/ minerals (THERA M PLUS) tablet/capsule 1 tablet 1 tablet Oral Once a day David Cruz DO 1 tablet at 11/03/24 08 ondansetron ODT (ZOFRAN-ODT) disintegrating tablet 4 mg 4 mg Oral Q6H PRN Suze Jenkins MD 4 mg at11/03/24 1241 oxyCODONE (ROXICODONE) immediate release tablet 10 mg 10 mg Oral Q6H PRN Suze Jenkins MD 10 mg at11/02/24 1141 pantoprazole (PROTONIX) EC/DR tablet 40 mg 40 mg Oral BID AC David Cruz DO 40 mg at polyethylene glycol (MIRALAX) packet 17 g 17 g Oral Once a day David Cruz DO senna (SENOKOT) tablet 2 tablet 2 tablet Oral Nightly David Cruz DO 2 tablet at 11/02/242117 sulfamethoxazole-trimethoprim (BACTRIM) 800-160 MG per tablet double-strength 1 tablet 1 tablet Oral Once per day on Monday David Cruz DO 1 tablet at 11/01/24 09 tacrolimus (PROGRAF) capsule 6 mg 6 mg Oral 2 times per day Suze Jenkins MD 6 mg at 11/03/24 0514 tamsulosin (FLOMAX) 24 hr capsule 0.4 mg 0.4 mg Oral Nightly David Cruz DO 0.4 mg at 11/02/242117 traZODone (DESYREL) tablet 50 mg 50 mg Oral Nightly David Cruz DO 50 mg at 11/02/242117 ursodiol (ACTIGALL) capsule 300 mg 300 mg Oral 3 times per day David Cruz DO 300 mg at 11/03/24843 valGANciclovir (VALCYTE) tablet 900 mg 900 mg Oral 2 times per day David Cruz DO 900 mg at 11/03/24 0844 Functional status 11/03/2024 Functional Status PT Data (since 10/31/2024) Value Time User Bed Mobility Level of Assist Close Supervision (P) 11/03/2024 3:23 PM Belinda Larsen PT Bed Mobility Comment Supine > short sitting EOB with HOB elevated, SUP (P) 11/03/2024 3:23 PM Belinda Larsen PT Transfer to Wheelchair 11/01/2024 11:17 AM Olvin Arce PT Transfer from Bed 11/01/2024 11:17 AM Olvin Arce PT Transfer Level of Assist Contact Guard; Close Supervision (P) 11/03/2024 3:23 PM Belinda Larsen PT Ambulation Level of Assist Contact Guard; Minimal Assistance 11/03/2024 9:25 AM Belinda Larsen PT Distance (feet) 15 11/01/2024 11:17 AM Olvin Arce PT Gait Analysis Ambulated 125' + 185' using RW, CGA by PT and ; demonstrated increased speed and step length with good heel strike BL, increased SOB toward end of bout. During 2nd bout, able to increase distance, although cues required for safe navigation of device over lip of carpet 11/03/2024 9:25 AM Belinda Larsen PT WC Analysis PT dependently transported patient room <> therapy gym, utilizing this time to establish goals for session then re-assess pain levels (P) 11/03/2024 3:23 PM Belinda Larsen PT SM Functional Status OT Data (since 10/31/2024) Value Time User Eating Setup 11/01/2024 12:04 PM Samuel Brandyn, OT Grooming Close Supervision 11/03/2024 11:54 AM Samuel Brandyn, OT Bathing Moderate Assistance 11/03/2024 11:54 AM Samuel Brandyn, OT Toileting Moderate Assistance 11/03/2024 1:46 PM Samuel Brandyn, OT Upper Body Dressing Minimal Assistance 11/03/2024 11:54 AM Samuel Brandyn, OT Lower Body Dressing Maximal Assistance 11/03/2024 11:54 AM Samuel Brandyn, OT Toilet Transfer Close Supervision 11/03/2024 1:46 PM Samuel Brandyn, OT Bed/Chair/WC Transfer Close Supervision 11/03/2024 1:07 PM Samuel Brandyn, OT SM Functional Status SURVEY [facility] Data (since 10/31/2024) Value Time User Compensatory Swallow Techniques Alternate solids/liquids-liquid wash; Small sips; Small bites; Eat slowly-control rate; Eat/drink only when awake/alert; Seated upright with all PO intake 10/31/2024 12:40 PM Virginia Dahl, [facility] Taylor Hargrove MD Department of Physical Medicine and Rehabilitation-PGY2 Cosigned by Marin Darnell MD at 11/03/2024 4:23 PM EDT Associated attestation - Marin Darnell MD - 11/03/2024 4:23 PM EDT I saw and evaluated Charles Blandon today with Dr. Mederos and agree with the assessment and plan of care. Patient seen in room, alert, visiting. Pt admitted status post liver transplant, immunosuppressed, abdominal op sites healed well with no erythema or discharge, reported nausea, denied vomiting, abdominal pain or constipation. Patient has globular abd, tympanitic, soft, non- tender, afebrile, no leukocytosis, has Hx of repeated paracenteses in the past, pt seen by Internal Medicine, ordered abd US. Hypomagnesemia resolved with IV Mg supplement, mild hyponatremia persists. Marin Darnell M.D. * Aidan Brown MD - 11/03/2024 2:00 PM EDT Pulmonary / Critical Care Progress Note Subjective: Breathing is about the same he does report dyspnea with exertion. He reports nausea Objective: Vital signs for last 24 hours: Temp: [97.7 ??F (36.5 ??C)] 97.7 ??F (36.5 ??C) Pulse: [74] 74 Resp: [17] 17 BP: (124)/(67) 124/67 Intake/Output last 3 shifts: I/O last 3 completed shifts: In: 640 [P.O.:640] Out: 1330 [Drains:30] Intake/Output this shift: No intake/output data recorded. Weight: Weight change: 4 lb 8 oz (2.041 kg) Physical Exam: General awake alert following command HEENT pupils equal and clear sclera clear oropharynx Neck supple Cardiovascular regular rhythm S1-S2 Lungs clear to auscultation no wheezing Abdomen soft nontender Extremity no edema cyanosis or clubbing Neurologically nonfocal cranial nerves intact grossly Imaging: I have reviewed all lmaging and testing from the last 24 hrs Lab Review: CBC: Recent Labs Lab Units 11/02/24 0640 WBC k/uL 4.05 RBC AUTO m/uL 2.77* HEMOGLOBIN g/dL 8.3* HEMATOCRIT % 25.9* MCV fL 93.5 PLATELETS AUTO k/uL 570* BMP: Recent Labs Lab Units 11/03/24 0505 SODIUM mmol/L 134* POTASSIUM mmol/L 4.9 CHLORIDE mmol/L 101 CO2 mmol/L 27 BUN mg/dL 8* CREATININE mg/dL 0.87 GLUCOSE mg/dL 103* CALCIUM mg/dL 8.3* ANION GAP mmol/L 6* PT/INR: BNP: Troponin: U/A: Invalid input(s): PROTUA , EPITH , BACTERIA LFT's: Recent Labs Lab Units 10/31/24 0452 PROTEIN TOTAL g/dL 5.0* Ionized Calcium: Invalid input(s): IONCA ABG: Invalid input(s): BDEF Current Facility-Administered Medications Medication Dose Route Frequency Provider Last Rate Last Admin acetaminophen (TYLENOL) 160 MG/5ML solution 500 mg 500 mg Oral Q6H PRN David Cruz DO alum & mag hydroxide-simeth enteral suspension 15 mL 15 mL Oral Q4H PRN David Cruz, DO 15mL at 11/02/24 0520 aspirin EC tablet 81 mg 81 mg Oral Once a day David Cruz, DO 81 mg at 11/03/24 0844 bisacodyl (DULCOLAX) suppository 10 mg 10 mg Rectal Daily PRN David Cruz DO DAPTOmycin (CUBICIN) 700 mg in sodium chloride 0.9 % 114 mL IVPB 700 mg Intravenous Q24H David Cruz, DO 700 mg at 11/03/24 1358 epoetin omar (PROCRIT) injection 15,000 Units 15,000 Units Subcutaneous Once per day on Monday Chelsea Cunningham MD 15,000 Units at 11/01/24 0750 famotidine (PEPCID) tablet 20 mg 20 mg Oral 2 times per day David Cruz DO 20 mg at 11/03/242144 furosemide (LASIX) tablet 40 mg 40 mg Oral 2 times per day Chelsea Cunningham MD 40 mg at heparin (porcine) injection 5,000 Units 5,000 Units Subcutaneous Q12H [facility] David Cruz DO 5,000 Units at 11/03/242145 magnesium hydroxide (MILK OF MAGNESIA) 400 MG/5ML suspension 30 mL 30 mL Oral Daily PRN David Cruz DO magnesium oxide tablet 800 mg 800 mg Oral 3 times per day Suze Jenkins MD 800 mg at 11/03/242147 methocarbamol (ROBAXIN) tablet 750 mg 750 mg Oral TID PRN David Cruz DO 750 mg at 11/03/24 163 metOLazone (ZAROXOLYN) tablet 10 mg 10 mg Oral Once a day Chelsea Cunningham MD 10 mg at 11/03/24 1829 mirtazapine (REMERON) tablet 7.5 mg 7.5 mg Oral Nightly David Cruz DO 7.5 mg at 11/03/242144 multivitamin w/ minerals (THERA M PLUS) tablet/capsule 1 tablet 1 tablet Oral Once a day David Cruz DO 1 tablet at 11/03/24 0844 ondansetron ODT (ZOFRAN-ODT) disintegrating tablet 4 mg 4 mg Oral Q6H PRN Suze Jenkins MD 4 mg at11/03/24 1241 oxyCODONE (ROXICODONE) immediate release tablet 10 mg 10 mg Oral Q6H PRN Suze Jenkins MD 10 mg at11/03/24 1631 pantoprazole (PROTONIX) EC/DR tablet 40 mg 40 mg Oral BID AC David Cruz DO 40 mg at polyethylene glycol (MIRALAX) packet 17 g 17 g Oral Once a day David Cruz DO senna (SENOKOT) tablet 2 tablet 2 tablet Oral Nightly David Cruz, DO 2 tablet at 11/03/242144 sulfamethoxazole-trimethoprim (BACTRIM) 800-160 MG per tablet double-strength 1 tablet 1 tablet Oral Once per day on Monday David Cruz, DO 1 tablet at 11/01/24 0919 tacrolimus (PROGRAF) capsule 6 mg 6 mg Oral 2 times per day Szue Jenkins MD 6 mg at 11/04/24 0650 tamsulosin (FLOMAX) 24 hr capsule 0.4 mg 0.4 mg Oral Nightly Davidyoli Cruz, DO 0.4 mg at 11/03/242146 traZODone (DESYREL) tablet 50 mg 50 mg Oral Nightly David Cruz, DO 50 mg at 11/03/242144 ursodiol (ACTIGALL) capsule 300 mg 300 mg Oral 3 times per day Davidyoli Cruz, DO 300 mg at 11/03/242143 valGANciclovir (VALCYTE) tablet 900 mg 900 mg Oral 2 times per day Davidyoli Cruz DO 900 mg at 11/03/242144 Assessment / Plan Active Problems: Critical illness myopathy S/p liver transplant Hepatocellular carcinoma BL pleural effusions and right hydropneumothorax post pig tail right side and thoracentesis Biliary infection on Daptomycin till 11/12 Ileus improved Multiloculated ascites Chest x-ray from 10/31 was reviewed, small pleural effusions and atelectasis. He is already on diuretics per Nephrology Chest x-ray is not suggestive of daptomycin induced pneumonitis and no eosinophilia on blood counts Continue prophylactic antibiotics and antiviral AIDAN BROWN MD * Suze Jenkins MD - 11/03/2024 11:44 AM EDT IM PROGRESS NOTE ASSESSMENT AND PLAN: Status post liver transplantation Moderate biliary stricture at common hepatic duct, post surgical. Bile leak from donor cystic duct remnant which appears contained. Biliary sphincterotomy. Biliary tree swept, pus and debris found. Lg stone proximal to stenosis could not be removed. Metal stent placed in CBD. CTAP 10/16: 5.2 cm collection in the gallbladder fossa with small amount of contrast, likely contained bile leak. Stable to slightly decreased size of geographic low-attenuation in the right hepatic lobe, possibly inflammatory or evolving infarct. Moderate volume abdominopelvic ascites. S/p Image-guided perihepatic collection aspiration + drain placement 10/17, culture + VRE New onset of abdominal pain 10/18 - CT abdomen w/o any acute processes KUB 10/19: Bowel gas pattern: Mildly dilated colon with the transverse colon measuring up to 6.2 cm. This is likely ileus. No significant small bowel dilatation. LVUS 10/19: Patent hepatic vasculature with appropriately directed flow. 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 Small volume loculated ascites. Plan: US to evaluate ascites Continue Daptomycin for VRE infection per ID recommendations (PICC line placed 10/24) with plan for at least 4 week course Monitor liver function Continue baby aspirin due to thrombocytosis Prophylaxis with bactrim Needs repeat ERCP in 1 month Fluid overload Lasix Nausea & vomiting KUB 10/24: Gastric gaseous distention. Scattered gas-filled nondilated small bowel and colon. Continue regular diet Continue bowel regimen Zofran PRN Chronic bilateral low back pain without sciatica History of T11 and T12 compression fractures Consulted Neurosurgery - not an appropriate surgical candidate Pain control PT/OT Vertigo CT brain 10/07: negative MRI brain 10/24: negative for acute abnormality follow up with Vestibular Neurologist, Dr. 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 Interval increase in volume of a low-attenuation,medium-sized left pleural effusion EF = 55 ?? 5% (visual est.) Aortic sclerosis. RVP (+) parainfluenza 3 S/p left thoracentesis 10/14: 320 cc drained, culture NGTD Continue to monitor respiratory status Anemia due to multiple mechanisms Monitor Severe protein-calorie malnutrition Continue regular diet Nutrition following GERD (gastroesophageal reflux disease) Continue pepcid BID SUBJECTIVE all of the above No acute event Abdominal distension, will get US ROS: Const: no fever CV: no chest pain Pulm: no dyspnea GI: no abd pain OBJECTIVE Medications: Reviewed, please refer to MAR for details BP 143/81 Pulse 78 Temp 98 ??F (36.7 ??C) (Oral) Resp 18 Ht 5' 9 (1.753 m) Wt 161 lb (73kg) SpO2 97% BMI 23.78 kg/m?? Physical Exam: General Appearance: NAD Lungs: CTAB, no wheezing/rhonchi/rales Heart: RRR, S1, S2, no m/r/g Abdomen: soft, non-tender, distended, +drain Extremities: no c/c/e Neuro: no lateralizing deficits Labs reviewed he patient was seen and examined today by myself. I have reviewed labs and all other critical information necessary to implement a care plan. I have discussed with housestaff the patient's care, 35 minutes were spent on coordination of care ? SIGNATURE: SUZE JENKINS MD DATE: November 03, 2024 TIME: 11:44 AM EDT * Taylor Hargrove MD - 11/02/2024 2:53 PM EDT Rehab Progress Note 11/02/2024 Patient Name: Charles Blandon Etiologic Diagnosis: Critical Illness Myopathy Rehab Impairment Code: Neurologic Conditions: 03.8 Neuromuscular Disorders Cc: Weakness History of Present Illness: 69 year old male with PMHx: alcohol-induced cirrhosis, c/b portal HTN, ascites, hepatic encephalopathy (HE), large esophageal varices (EV), hereditary hemorrhagic telangiectasia (HHT) and [place]???sesophagus . Recently diagnosed with hepatocellular carcinoma (HCC). S/p liver transplant, biliary sphintertomy and stent to CBD, VRE on daptomycin, valcyte for CMV, s/p L thoracentesis. ASSESSMENT: Critical Illness Myopathy Metastatic HCC S/p DCD OLT, 09/09 Biliary stricture of transplanted liver Acute blood loss Anemia, PRBC 09/27 (Crossmatch T and B cell weak positive ), 10/26 Parainfluenza pneumonia infection Fluid overload VRE Biliary stent infection Ascites s/p perihepatic collection aspiration and drain placement, 10/17. Hydropneumothorax s/p thoracentesis, 10/14 Metal stent placed in CBD Ileus Worsening bilateral pleural effusion RENATE superimposed CKD3 Hyponatremia Right pleural effusion Nociceptive surgical pain Alcohol-induced cirrhosis Portal HTN Ascites Hepatic encephalopathy PLAN: IM, ID, Nephro, Pulm, Cardio Consult Psychologist consultation and evaluation, Melatonin, Trazodone; remeron Biweekly immunosuppression labs, viral surveillance titre's weekly and biweekly IDT with liver transplant team ATB Daptomycin IV to complete 11/12 Prophylaxis: Acyclovir, Bactrim, Nystatin swish/swallow completes 09/30 Immunosuppression: prograf bid, cellcept bid, prednisone completed 09/30 Midodrine tid to keep BP normal Bowel Program: Miralax, Colace, Senna, Dulcolax Glycemic Control:Lispro Bladder Retraining and eval for high PVR and IC if >300, Flomax Nutritional Support - Adult Diet Regular; 7 Regular (Regular Texture); 0 Thin (All Liquids) GI prophylaxis: Protonix Fall Prevention Isolation: No active isolations Pain management: Acetaminophen, Oxycodone, Lidocaine, Robaxin DVT prophylaxis: Lovenox 11/01 started on Lasix 11/02 Given magnesium supplementation; zofran added Subjective: Patient was seen and examined today. Patient complained of having mild nausea. Agreeable to start Zofran. Denies abdominal pain. Passinggas. Last BM 10/31. Objective: Vital signs: Last 24 hours: Temp: [97.5 ??F (36.4 ??C)-98.3 ??F (36.8 ??C)] 98.3 ??F (36.8 ??C) Pulse: [71-79] 79 Resp: [17-19] 17 BP: (120-134)/(87-88) 134/88 Physical Exam: General: not in distress Awake, alert, oriented ENT: no oral thrush, throat clear Heart: Regular rate and rhythm Lungs: clear to auscultation, no wheezing Abdomen: positive bowel sound, soft, non-tender Skin: incisions look clean and healing. No drainage noted. Current Facility-Administered Medications Medication Dose Route Frequency Provider Last Rate Last Admin acetaminophen (TYLENOL) 160 MG/5ML solution 500 mg 500 mg Oral Q6H PRN David S Anthony, DO alum & mag hydroxide-simeth enteral suspension 15 mL 15 mL Oral Q4H PRN David Cruz, DO 15mL at 11/02/24 0520 aspirin EC tablet 81 mg 81 mg Oral Once a day David Belem Anthony, DO 81 mg at 11/02/24 0825 bisacodyl (DULCOLAX) suppository 10 mg 10 mg Rectal Daily PRN David Cruz DO DAPTOmycin (CUBICIN) 700 mg in sodium chloride 0.9 % 114 mL IVPB 700 mg Intravenous Q24H Davidyoli Cruz, DO 700 mg at 11/02/24 1353 epoetin omar (PROCRIT) injection 15,000 Units 15,000 Units Subcutaneous Once per day on Monday Chelsea Cunningham MD 15,000 Units at 11/01/24 0750 famotidine (PEPCID) tablet 20 mg 20 mg Oral 2 times per day David Cruz DO 20 mg at 11/02/24 0825 furosemide (LASIX) tablet 40 mg 40 mg Oral Once a day Davidyoli Cruz DO 40 mg at 11/02/24 0825 heparin (porcine) injection 5,000 Units 5,000 Units Subcutaneous Q12H [facility] David Cruz DO 5,000 Units at 11/02/24 0825 magnesium hydroxide (MILK OF MAGNESIA) 400 MG/5ML suspension 30 mL 30 mL Oral Daily PRN David Cruz DO magnesium oxide tablet 800 mg 800 mg Oral 3 times per day Suze Jenkins MD methocarbamol (ROBAXIN) tablet 750 mg 750 mg Oral TID PRN David Cruz DO 750 mg at 11/02/24 114 mirtazapine (REMERON) tablet 7.5 mg 7.5 mg Oral Nightly David Cruz DO 7.5 mg at 11/01/246 multivitamin w/ minerals (THERA M PLUS) tablet/capsule 1 tablet 1 tablet Oral Once a day David Cruz DO 1 tablet at 11/02/24 0827 ondansetron ODT (ZOFRAN-ODT) disintegrating tablet 4 mg 4 mg Oral Q6H PRN Suze Jenkins MD oxyCODONE (ROXICODONE) immediate release tablet 10 mg 10 mg Oral Q6H PRN Suze Jenkins MD 10 mg at11/02/24 1141 pantoprazole (PROTONIX) EC/DR tablet 40 mg 40 mg Oral BID AC David Cruz, DO 40 mg at 5 polyethylene glycol (MIRALAX) packet 17 g 17 g Oral Once a day David Nurkodi DO senna (SENOKOT) tablet 2 tablet 2 tablet Oral Nightly David Cruz, DO 2 tablet at 11/01/242025 sulfamethoxazole-trimethoprim (BACTRIM) 800-160 MG per tablet double-strength 1 tablet 1 tablet Oral Once per day on Monday David Nurari, DO 1 tablet at 11/01/24918 tacrolimus (PROGRAF) capsule 6 mg 6 mg Oral 2 times per day Suze Jenkins MD 6 mg at 11/02/24 0514 tamsulosin (FLOMAX) 24 hr capsule 0.4 mg 0.4 mg Oral Nightly David Nurari, DO 0.4 mg at 11/01/242025 traZODone (DESYREL) tablet 50 mg 50 mg Oral Nightly David Cruz, DO 50 mg at 11/01/242026 ursodiol (ACTIGALL) capsule 300 mg 300 mg Oral 3 times per day David Nurari, DO 300 mg at 11/02/24826 valGANciclovir (VALCYTE) tablet 900 mg 900 mg Oral 2 times per day David Cruz, DO 900 mg at 11/02/24826 Taylor Hargrove MD Department of Physical Medicine and Rehabilitation-PGY2 Cosigned by Marin Darnell MD at 11/03/2024 3:44 AM EDT Associated attestation - Marin Darnell MD - 11/03/2024 3:44 AM EDT I saw and evaluated Charles Blandon today with Dr. Mederos and agree with the assessment and plan of care. Patient seen in room, alert, admitted status post liver transplant, immunosuppressed, abdominal op sites healed well with no erythema or discharge, reported nausea, denied abdominal pain or constipation. Patient has hypomagnesemia, Internal Medicine replacing with IV magnesium, appreciate assistance. Patient also has anemia and mild hyponatremia, monitor H&H and electrolytes. Marin Darnell M.D. * Suze Jenkins MD - 11/02/2024 11:38 AM EDT IM PROGRESS NOTE ASSESSMENT AND PLAN: Fluid overload Lasix Nausea & vomiting KUB 10/24: Gastric gaseous distention. Scattered gas-filled nondilated small bowel and colon. Continue regular diet Continue bowel regimen Zofran PRN Chronic bilateral low back pain without sciatica History of T11 and T12 compression fractures Consulted Neurosurgery - not an appropriate surgical candidate Pain control PT/OT Vertigo CT brain 10/07: negative MRI brain 10/24: negative for acute abnormality follow up with Vestibular Neurologist, Dr. 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 Interval increase in volume of a low-attenuation,medium-sized left pleural effusion EF = 55 ?? 5% (visual est.) Aortic sclerosis. RVP (+) parainfluenza 3 S/p left thoracentesis 10/14: 320 cc drained, culture NGTD Continue to monitor respiratory status Anemia due to multiple mechanisms Monitor Status post liver transplantation Moderate biliary stricture at common hepatic duct, post surgical. Bile leak from donor cystic duct remnant which appears contained. Biliary sphincterotomy. Biliary tree swept, pus and debris found. Lg stone proximal to stenosis could not be removed. Metal stent placed in CBD. CTAP 10/16: 5.2 cm collection in the gallbladder fossa with small amount of contrast, likely contained bile leak. Stable to slightly decreased size of geographic low-attenuation in the right hepatic lobe, possibly inflammatory or evolving infarct. Moderate volume abdominopelvic ascites. S/p Image-guided perihepatic collection aspiration + drain placement 10/17, culture + VRE New onset of abdominal pain 10/18 - CT abdomen w/o any acute processes KUB 10/19: Bowel gas pattern: Mildly dilated colon with the transverse colon measuring up to 6.2 cm. This is likely ileus. No significant small bowel dilatation. LVUS 10/19: Patent hepatic vasculature with appropriately directed flow. 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 Small volume loculated ascites. Plan: LVUS to evaluate vasculature and ascites Continue Daptomycin for VRE infection per ID recommendations (PICC line placed 10/24) with plan for at least 4 week course Monitor liver function daily Continue baby aspirin due to thrombocytosis Prophylaxis with bactrim Needs repeat ERCP in 1 month Severe protein-calorie malnutrition Continue regular diet Nutrition following GERD (gastroesophageal reflux disease) Continue pepcid BID SUBJECTIVE all of the above No acute event ROS: Const: no fever CV: no chest pain Pulm: no dyspnea GI: no abd pain OBJECTIVE Medications: Reviewed, please refer to MAR for details BP 134/88 Pulse 79 Temp 98.3 ??F (36.8 ??C) (Oral) Resp 17 Ht 5' 9 (1.753 m) Wt 162 lb 8oz (73.7 kg) SpO2 97% BMI 24.00 kg/m?? Physical Exam: General Appearance: NAD Lungs: CTAB, no wheezing/rhonchi/rales Heart: RRR, S1, S2, no m/r/g Abdomen: soft, non-tender, distended, +drain Extremities: no c/c/e Neuro: no lateralizing deficits Labs reviewed he patient was seen and examined today by myself. I have reviewed labs and all other critical information necessary to implement a care plan. I have discussed with housestaff the patient's care, 35 minutes were spent on coordination of care ? SIGNATURE: SUZE JENKINS MD DATE: November 02, 2024 TIME: 11:39 AM EDT * Suze Jenkins MD - 11/01/2024 12:17 PM EDT IM PROGRESS NOTE ASSESSMENT AND PLAN: Fluid overload Lasix Nausea & vomiting KUB 10/24: Gastric gaseous distention. Scattered gas-filled nondilated small bowel and colon. Continue regular diet Continue bowel regimen Zofran PRN Chronic bilateral low back pain without sciatica History of T11 and T12 compression fractures Consulted Neurosurgery - not an appropriate surgical candidate Pain control PT/OT Vertigo CT brain 10/07: negative MRI brain 10/24: negative for acute abnormality follow up with Vestibular Neurologist, Dr. 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 Interval increase in volume of a low-attenuation,medium-sized left pleural effusion EF = 55 ?? 5% (visual est.) Aortic sclerosis. RVP (+) parainfluenza 3 S/p left thoracentesis 10/14: 320 cc drained, culture NGTD Continue to monitor respiratory status Anemia due to multiple mechanisms Monitor Status post liver transplantation Moderate biliary stricture at common hepatic duct, post surgical. Bile leak from donor cystic duct remnant which appears contained. Biliary sphincterotomy. Biliary tree swept, pus and debris found. Lg stone proximal to stenosis could not be removed. Metal stent placed in CBD. CTAP 10/16: 5.2 cm collection in the gallbladder fossa with small amount of contrast, likely contained bile leak. Stable to slightly decreased size of geographic low-attenuation in the right hepatic lobe, possibly inflammatory or evolving infarct. Moderate volume abdominopelvic ascites. S/p Image-guided perihepatic collection aspiration + drain placement 10/17, culture + VRE New onset of abdominal pain 10/18 - CT abdomen w/o any acute processes KUB 10/19: Bowel gas pattern: Mildly dilated colon with the transverse colon measuring up to 6.2 cm. This is likely ileus. No significant small bowel dilatation. LVUS 10/19: Patent hepatic vasculature with appropriately directed flow. 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 Small volume loculated ascites. Plan: LVUS to evaluate vasculature and ascites Continue Daptomycin for VRE infection per ID recommendations (PICC line placed 10/24) with plan for at least 4 week course Monitor liver function daily Continue baby aspirin due to thrombocytosis Prophylaxis with bactrim Needs repeat ERCP in 1 month Severe protein-calorie malnutrition Continue regular diet Nutrition following GERD (gastroesophageal reflux disease) Continue pepcid BID SUBJECTIVE all of the above No acute event ROS: Const: no fever CV: no chest pain Pulm: no dyspnea GI: no abd pain OBJECTIVE Medications: Reviewed, please refer to JUN for details BP 112/72 Pulse 71 Temp 97.2 ??F (36.2 ??C) (Oral) Resp 17 Ht 5' 9 (1.753 m) Wt 160 lb 6.4 oz (72.8 kg) SpO2 94% BMI 23.69 kg/m?? Physical Exam: General Appearance: NAD Lungs: CTAB, no wheezing/rhonchi/rales Heart: RRR, S1, S2, no m/r/g Abdomen: soft, non-tender, distended, +drain Extremities: no c/c/e Neuro: no lateralizing deficits Labs reviewed he patient was seen and examined today by myself. I have reviewed labs and all other critical information necessary to implement a care plan. I have discussed with housestaff the patient's care, 35 minutes were spent on coordination of care ? 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 Functional Bowel Incontinence Protein Calorie Malnutrition Gait Abnormality Ambulatory Dysfunction ADL Dysfunction Debility Cognitive Impairment Constipation Coordination Deficit Spasticity Skin Wound Neuropathic Pain Chronic Pain Balance Deficits PLAN: IM, ID, Nephro, Pulm, Cardio Consult Psychologist consultation and evaluation, Melatonin, Trazodone; remeron Biweekly immunosuppression labs, viral surveillance titre's weekly and biweekly IDT with liver transplant team ATB Daptomycin IV to complete 11/12 Prophylaxis: Acyclovir, Bactrim, Nystatin swish/swallow completes 09/30 Immunosuppression: prograf bid, cellcept bid, prednisone completed 09/30 Midodrine tid to keep BP normal Bowel Program: Miralax, Colace, Senna, Dulcolax Glycemic Control:Lispro Bladder Retraining and eval for high PVR and IC if >300, Flomax Nutritional Support - Adult Diet Regular; 7 Regular (Regular Texture); 0 Thin (All Liquids) GI prophylaxis: Protonix Fall Prevention Isolation: No active isolations Pain management: Acetaminophen, Oxycodone, Lidocaine, Robaxin DVT prophylaxis: Lovenox Rehab Issues: Potential barriers to progress- complex medical issues, significant impairments. Rehab plan- PT/OT for ADLs, transfer, and gait training, ROM , strengthening and balance exercises,assistive device prescription. Rehab nursing for skin care, bowel and bladder care, administration of medication, patient and family education. Case management for care coordination and discharge.Therapy schedule will be 3 hrs/day x 5-6 days/week or 15 hrs/7 days in special situations. Weekly Interdisciplinary Rehab Team Meeting to address barriers to discharge and coordination of care. Subjective: Patient was seen and examined. No acute events overnight and pt denies concerns today. No THIBODEAUX, dizziness, CP, SOB, abdominal pain, n/v/d or b/b issues. Current Function: 11/01/2024: Functional Status PT Data (since 10/29/2024) Value Time User Bed Mobility Level of Assist Close Supervision; Moderate Assistance 11/01/2024 11:17 AM Olvin Arce PT Bed Mobility Comment Pt completes supine > short sit on EOB with SUP Pt completes short sit > supine with assist from spouse for BLE mgmt 11/01/2024 11:17 AM Olvin Arce PT Transfer to Wheelchair 11/01/2024 11:17 AM Olvin Arce PT Transfer from Bed 11/01/2024 11:17 AM Olvin Arce PT Transfer Level of Assist Contact Guard 11/01/2024 11:17 AM Olvin Arce PT Ambulation Level of Assist Contact Guard 11/01/2024 11:17 AM Olvin Arce PT Distance (feet) 15 11/01/2024 11:17 AM Olvin Arce PT Gait Analysis Pt ambulates 15 ft x1 with RW and CGA for steadying with spouse, Fabiana, providing assist from w/c > bathroom. 11/01/2024 11:17 AM Olvin Arce, PT WC Analysis totalA to propel [facility] 10/31/2024 12:49 PM Jessica Anders, PT Objective: Physical Exam: VS: BP 112/72 Pulse 71 Temp 97.2 ??F (36.2 ??C) (Oral) Resp 17 Ht 5' 9 (1.753 m) Wt 160 lb 6.4 oz (72.8 kg) SpO2 94% BMI 23.69 kg/m?? General: NAD CV: No c/c/e Pulm: No audible wheezing or stridor Abdomen: soft, non-tender, No g/r/r Extremities: Full ROM in all limbs, Tone normal in all limbs Wound Management: Wound Management Orders (From admission, onward) Start Ordered 11/01/24 1400 Wound Management: Use Associated Wounds location ([place]); Wound prevention Weekly Comments: Apply foam. Assess under foam with each skin assessment. Question Answer Comment Wound Location Use Associated Wounds location [place] Wound Management Wound prevention 10/31/24 1115 10/31/24 0933 Wound Management: Use Associated Wounds location ([facility] [place]OUN[place]/PREVENTION); Wound care per algorithm Per algorithm Question Answer Comment Wound Location Use Associated Wounds location [facility] [place]/PREVENTION Wound Management Wound care per algorithm 10/31/24 0932 Section GG CARE Scores - Current All Therapy Physical Therapy Car Transfer Car Transfer - CARE Score: 3 (10/31/24 1236) Walk 10 Feet Walk 10 Feet - CARE Score: 1 (10/31/24 1236) Walk 50 Feet with Two Turns Walk 50 Feet with Two Turns - CARE Score: 1 (10/31/24 1236) Walk 150 Feet Walk 150 Feet - CARE Score: 88 (10/31/24 1236) Walking 10 Feet on Uneven Surfaces Walking 10 Feet on Uneven Surfaces - CARE Score: 88 (10/31/24 1236) 1 Step (Curb) 1 Step (Curb) - CARE Score: 88 (10/31/24 1236) 4 Steps 4 Steps - CARE Score: 88 (10/31/24 1236) 12 Steps 12 Steps - CARE Score: 88 (10/31/24 1236) Picking Up Object Picking Up Object - CARE Score: 88 (10/31/24 123) Wheel 50 Feet with Two Turns Wheel 50 Feet with Two Turns - CARE Score: 1 (10/31/241235) Wheel 150 Feet Wheel 150 Feet - CARE Score: 1 (10/31/241235) Occupational Therapy Eating Eating - CARE Score: 5 (11/01/2421) Oral Hygiene Oral Hygiene - CARE Score: 5 (11/01/2421) Toileting Hygiene Toileting Hygiene - CARE Score: 5 (11/01/2421) Shower/Bathe Self Shower/Bathe Self - CARE Score: 5 (11/01/2421) Upper Body Dressing Upper Body Dressing - CARE Score: 5 (11/01/2421) Lower Body Dressing Lower Body Dressing - CARE Score: 5 (11/01/2421) Putting On/Taking Off Footwear Putting On/Taking Off Footwear - CARE Score: 5 (11/01/2421) Roll Left and Right Roll Left and Right - CARE Score: 2 (10/31/24 1254) Sit to Lying Sit to Lying - CARE Score: 5 (11/01/2421) Lying to Sitting on Side of Bed Lying to Sitting on Side of Bed - CARE Score: - (11/01/2421) Sit to Stand Sit to Stand - CARE Score: 4 (11/01/2421) Chair/Wny-vo-Evgow Transfer Chair/Epj-se-Corsu Transfer - CARE Score: 4 (11/01/2421) Toilet Transfer Toilet Transfer - CARE Score: 4 (11/01/2421) Speech Therapy Expression of Ideas and Wants Expression of Ideas and Wants: Without difficulty (10/31/24822) Understanding Verbal and Non-Verbal Content Understanding Verbal and Non-Verbal Content: Understands (10/31/24822) BIMS Brief Interview for Mental Status (BIMS) Repetition of Three Words (First Attempt): 3 (10/31/24822) Temporal Orientation: Year: Correct (10/31/24822) Temporal Orientation: Month: Accurate within 5 days (10/31/24822) Temporal Orientation: Day: Correct (10/31/24822) Recall: Sock : Yes, no cue required (10/31/24822) Recall: Blue : Yes, no cue required (10/31/24822) Recall: Bed : Yes, after cueing ( a piece of furniture ) (10/31/24822) BIMS Summary Score: 14 (10/31/24822) Memory/Recall Ability Labs: Imaging: US DOPPLER COMPLETE Result Date: 10/29/2024 * * *Final Report* * * DATE OF EXAM: Oct 29 2024 3:39PM [facility] 1033 - US DOPPLER COMPLETE / PROCEDURE REASON: Liver transplant * * * * Physician Interpretation * * * * EXAMINATION:LIVER VASCULAR ULTRASOUND WITH DOPPLER IMAGING CLINICAL HISTORY: 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 Images were obtained and stored in a permanent archive. MQ: [id number] COMPARISON:CT 10/24/2024, ultrasound 10/19/2024. RESULT: Sonographic Findings: Pancreas: Normal sonographic appearance. Portions obscured: tail Liver: Echotexture: Normal, homogeneous. Echogenicity: Normal Surface contour: Smooth Lesions: None. Biliary: No intrahepatic biliary duct dilation. Stable pneumobilia. CBD: 0.8 cm at the hilum. Gallbladder: Prior cholecystectomy. Gallbladder fossa partially obscured with drain in place. Right Kidney: No hydronephrosis. Spleen: Craniocaudal length 9.4 cm, normal. There are no splenic lesions. Other: Moderate volume loculated ascites, increased from prior ultrasound 10/19/2024 HEPATIC VASCULATURE: PORTAL SYSTEM: -Splenic Vein: Patent with antegrade flow (towards the liver). -Main PV: Patent with phasic antegrade flow (towards liver). 44-58 cm/sec. Previously 38-53 cm/sec. -Right anterior PV: Patent with phasic antegrade flow (towards liver). 25.5 cm/sec. Pre viously 30 cm/sec -Right posterior PV: Patent with phasic antegrade flow (towards liver). 30 cm/sec. Previously 32 cm/sec -Left PV: Patent with phasic antegrade flow (towards liver). 19 cm/sec. Previously 26 cm/sec HEPATIC ARTERIES: - Main THIBODEAUX: Normal waveform PSV: 51-57 cm/sec. RI: 0.74-0.75. Previo usly 70-84 cm/sec. RI: 0.76-0.80 - Right anterior THIBODEAUX: Normal waveform PSV: 59 cm/sec. RI: 0.68. Previously 66 cm/sec. RI: 0.72 - Right posterior THIBODEAUX: Normal waveform PSV: 81 cm/sec. RI: 0.74. Previously 66 cm/sec. RI: 0.77 - Left THIBODEAUX: Normal waveform PSV: 60 cm/sec. RI: 0.70. Previously 73 cm/sec. RI: 0.77 HEPATIC VEINS: -Left: Patent with triphasic waveform. -Middle: Patent with triphasic waveform. -Right: Patent with triphasic waveform. IVC: Patent with normal, phasic wave form. IMPRESSION: Patent hepatic vasculature with appropriately directed flow. Mildly increased multiloculated ascites. Stripper Apprentice: [facility] Transcribe Date/Time: Oct 29 2024 3:46P Dictated by : MARIO YU MD This examination was interpreted and the report reviewed and electronically signed by: AMARILIS ADAMSON MD on Oct 29 2024 4:11PM EST US ABD LIVER VASCULAR TRANSPLANT () Result Date: 10/29/2024 * * *Final Report* * * DATE OF EXAM: Oct 29 2024 3:00PM [facility] [place] 0685 - ABD LIVER VASCULAR TRANSPLANT/ PROCEDURE REASON: Liver transplant * * * * Physician Interpretation * * * *EXAMINATION: LIVER VASCULAR ULTRASOUND WITH DOPPLER IMAGING CLINICAL HISTORY: 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 Images were obtained and stored in a permanent archive. MQ: USLV_1 COMPARISON: CT 10/24/2024, ultrasound 10/19/2024. RESULT: Sonographic Findings: Pancreas: Normal sonographic appearance. Portions obscured: tail Liver: Echotexture: Normal, homogeneous. Echogenicity: Normal Surface contour: Smooth Lesions: None. Biliary: No intrahepatic biliary duct dilation. Stable pneumobilia. CBD: 0.8 cm at the hilum. Gallbladder: Prior cholecystectomy. Gallbladder fossa partially obscured with drain in place. Right Kidney: No hydronephrosis. Spleen: Craniocaudal length 9.4cm, normal. There are no splenic lesions. Other: Moderate volume loculated ascites, increased from p rior ultrasound 10/19/2024 HEPATIC VASCULATURE: PORTAL SYSTEM: -Splenic Vein: Patent with antegradeflow (towards the liver). -Main PV: Patent with phasic antegrade flow (towards liver). 44-58 cm/sec. Previously 38-53 cm/sec. -Right anterior PV: Patent with phasic antegrade flow (towards liver). 25.5 cm/sec. Previously 30 cm/sec -Right posterior PV: Patent with phasic antegrade flow (towards liver). 30 cm/sec. Previously 32 cm/sec -Left PV: Patent with phasic antegrade flow (towards liver). 19 cm/sec. Previously 26 cm/sec HEPATIC ARTERIES: - Main THIBODEAUX: Normal waveform PSV: 51-57 cm/sec. RI: 0.74-0.75. Previously 70-84 cm/sec. RI: 0.76-0.80 - Right anterior THIBODEAUX: Normal waveform PSV: 59 cm/sec. RI: 0.68. Previously 66 cm/sec. RI: 0.72 - Right posterior THIBODEAUX: Normal waveform PSV: 81 cm/sec. RI: 0.74. Previously 66 cm/sec. RI: 0.77 - Left THIBODEAUX: Normal waveform PSV: 60 cm/sec. RI: 0.70. Previously 73 cm/sec. RI: 0.77 HEPATIC VEINS: -Left: Patent with triphasic waveform. -Middle: Patent with triphasic waveform. -Right: Patent with triphasic waveform. IVC: Patent with normal, phasic wave form. IMPRESSION: Patent hepatic vasculature with appropriately directed flow. Mildly increased multiloculated ascites. Stripper Apprentice: [facility] Transcribe Date/Time: Oct 29 2024 3:46P Dictated by : MARIO YU MD This examination was interpreted and the report reviewed and electronically signed by: AMARILIS ADAMSON MD on Oct 29 2024 4:11PM EST MRI BRAIN WO IVCON Result Date: 10/24/2024 * * *Final Report* * * DATE OF EXAM: Oct 24 2024 7:06PM [facility] [id number] - MRI BRAIN WO IVCON / PROCEDURE REASON: Dizziness, non-specific * * * * Physician Interpretation * * * * EXAMINATION: MRI BRAIN WO IVCON CLINICAL HISTORY: Dizziness TECHNIQUE: Routine noncontrast MRI protocol including diffusion images. MQ: MRBWO_2 COMPARISON: Head CT 10/07/2024 RESULT: Acute Change: There is no evidence of restricted diffusion to suggest an acute infarct. Hemorrhage: No evidence of prior parenchymal hemorrhage on the susceptibility weighted images. Mass Lesion/ Mass Effect: No evidence of an intracranial mass or extra-axial fluid collection. No mass effect. Chronic Change: Extensive patchy confluent T2 FLAIR hyperintense lesions are present throughout the bilateral supratentorial brainand alejandra compatible with sequela of chronic small vessel disease. Moderate diffuse brain volume loss. Ventricles: No evidence of hydrocephalus. Skull Base: Hypothalamic and pituitary region are grossly normal. Craniocervical junction is normal. No significant marrow replacement process. Vasculature: Major intracranial arterial structures, and dural venous sinuses show typical flow void, suggesting patency by spin echo criteria. Other: The visualized paranasal sinuses and mastoid air cells are cl ear. The orbits and extracranial soft tissues are unremarkable. IMPRESSION: No evidence of acute intracranial abnormality. Extensive patchy confluent T2 FLAIR hyperintense lesions are present throughout the bilateral supratentorial brain and alejandra compatible with sequela of chronic small vessel disease. Stripper Apprentice: [facility] Transcribe Date/Time: Oct 24 2024 7:06P Dictated by : JASON ZURITA MD This examination was interpreted and the report reviewed and electronically signed by: JASON ZURITA MD on Oct 24 2024 7:10PM EST CT ABD/PEL W IVCON Result Date: 10/24/2024 * * *Final Report* * * DATE OF EXAM: Oct 24 2024 6:28PM [facility] 0530 - CT ABD/PEL W IVCON / PROCEDURE REASON: Abdominal pain, acute, nonlocalized * * * * Physician Interpretation * * * * EXAMINATION: CT ABDOMEN AND PELVIS WITH IV CONTRAST CLINICAL HISTORY: 69-year-old man with a history of liver transplant on 09/09/2024, now with vomiting and abdominal pain/distention TECHNIQUE: CT of the abdomen and pelvis was performed using standard technique, scanning from just above the dome of the diaphragm to the symphysis pubis. MQ: CTAP_3 Contrast: Central IV: 100 ml of Omnipaque 350: ml of CT Radiation dose: Integrated Dose-length product (DLP) for this visit = 402 mGy*cm. CT Dose Reduction Employed: mAs-kVp adjusted based on patient size-age COMPARISON: 10/16/2024 and 10/18/2024 RESULT: Liver: Liver transplant. Mildly decreasing conspicuity and size of ill-defined low-attenuation lesion in the right hepatic lobe (i.e. 3:22), likely resolving infarction/infection. Biliary: No bile duct dilation. Common bile duct stent in place with expected pneumobilia. Cholecystectomy. Residual 4.1 x 2.0 cm collection in the gallbladder fossa (3:45), previously measuring 3.9 x 2.8 cm when measured similarly. Previously well-positioned drain within this collection seen on CT 10/18/2024, hasbeen slightly retracted in the interval, with the pigtail now uncurled, with several of the sideholes now within the liver parenchyma. Spleen: No mass. No splenomegaly. Pancreas: No mass or duct dilation. Adrenals: No mass. Kidneys: No mass, calculus or hydronephrosis. GI tract: A single loop of jejunum in the left upper quadrant measures up to 5 cm, without transition point, and enteric contrast reaching the terminal ileum/cecum.. Colonic diverticulosis, without acute diverticulitis. NG/OG tube terminating at the gastric body, sidehole subdiaphragmatic. Lymph nodes: No abdominal or pelvic lymphadenopathy. Mesentery/Peritoneum: Moderate volume ascites, slightly increased since 10/18/2024. Mild diffuse peritoneal thickening/enhancement. No loculated fluid collection otherwise. Retroperitoneum: No mass. Vasculature: - Abdominal aorta and iliac arteries: Atherosclerotic calcifications without aneurysm. - Celiac and SMA: Patent without stenosis. - Portal venous system (SMV, splenic vein, portal vein and branches): Patent. - Hepatic veins: Patent. Pelvis: No mass or fluid collection. Right inguinal hernia containing ascitic fluid. Bones/Soft Tissues: Severe compression deformities of T12 and L1, unchanged. Diffuse body wall edema. Lower thorax: Moderate left pleural effusion. Small right loculated hydropneumothorax, unchanged. Bibasilar atelectasis. Localizer images: No additional findings. IMPRESSION: Further mild interval decrease in size of gallbladder fossa collection. Of note, the previously well-positioned percutaneous drain is now slightly retracted, with a few of the sideholes now within the hepatic parenchyma. Slightly increased moderate volume ascites, with new peritoneal thi ckening/enhancement, suggestive of peritonitis, perhaps bile peritonitis given somewhat malpositioned percutaneous drain within the known biliary leak. Stripper Apprentice: [facility] Transcribe Date/Time: Oct 24 2024 6:39P Dictated by : MIKE OATES MD This examination was interpreted and the report reviewed and electronically signed by: MIKE OATES MD on Oct 24 2024 6:50PM EST IR VASCULAR ACCESS TEAM PICC INSERTION RADIO Result Date: 10/24/2024 Eileen Hernandez RN 10/24/2024 11:49 AM PICC NURSE INSERTION NOTE DATE OF PROCEDURE: October 24, 2024 TIME OF PROCEDURE: 1100 ORDERING PHYSICIAN: Brandi Alarcon INFORMED CONSENT: Obtained per hospital policy. INDICATION FOR LINE PLACEMENT: COPAT CONDITION OF LINE PLACEMENT: Sterile PRIMARY PROCEDURALIST: Ceci Beauchamp RN MARKETING DESIGNER: Lili Hernandez RN PRE-PROCEDURE REVIEW ALLERGIES No Known Allergies Known History of Upper Venous Thrombosis: No Known History of Permanent Pacemaker or Automated Implanted Cardiac Device: No Previous Breast Surgery of Lymph Node Dissection: No Estimated Glomerular Filtration Rate Date Value Ref Range Status 10/24/2024 95 >=60 mL/min/1.73m Final Comment: Estimated Glomerular Filtration Rate (eGFR) is calculated using the 2020 CKD-EPI creatinine equation. This equation utilizes serum creatinine, sex, and age as parameters. The creatinine assay has traceable calibration to isotope dilution-mass spectrometry. Refer to KDIGO guidelines for clinical interpretation. In patients with unstable renal function, e.g. those with acute kidney injury, the eGFR may not accurately reflect actual GFR. eGFR- Date Value Ref Range Status 10/17/2016 >60 Final History of Renal Disease: CKD, GFR 92 Ultrasound Assessment Complete: Yes PROCEDURE NARRATIVE SAFE PRACTICE Hand Hygiene per Hospital Policy: Yes Skin Preparation Unit Dose Applicator Used: Chloraprep (CHG + alcohol), allowed to dry. Procedure Surface Cleansed with Antimicrobial Wipes: Yes BarriersUsed by Proceduralist and all Assisting Personnel: Yes UNIVERSAL PROTOCOL / SAFETY CHECKLIST Procedure to be Performed: peripherally inserted central catheter Sign In: A Moment of CARE was completed.Appropriate PPE (Personal Protective Equipment) worn by all providers involved with the procedure. Special equipment not required. Patient/Surrogate Stated/Verified: Patient name, Date of , Relevant allergies, and The intended procedure Time Out: Relevant labs, photos, and/or imaging studies have been reviewed. Intended patient and procedure match the source document(s) (e.g. consent, H&P, associated studies [imaging, pathology]) match the intended patient and procedure. Consent obtained and matches the intended procedure. Yes. Correct side/site has been marked and visible. Medications required for this procedure are verified. Fire risk assessed and is not applicable. Implants: arenot applicable. Sign Out: Specimens not collected. All instruments, equipment, possible retained foreign bodies are accounted for. Yes. The post-procedure plan of care has been communicated to the patient or surrogate and to patient's multidisciplinary team (including bedside nurse for hospitalizedpatients). CATHETER PLACEMENT Brand: OPHTHONIX Lot: [id number] Number of Lumens: 1 Type of PICC: Power Injectable PICC Lumen Size: 4 [place] PLACEMENT TECHNIQUE Lidocaine: Yes, Lidocaine 1% Volume 4 mL Subcutaneous Modified Seldinger Technique Used to Place Line via the Right Basilic Ultrasound Guidance: Yes Number of Attempts at Insertion: 2 Ensured control of guidewire during all aspects of the procedure: Yes Accounted for entire guidewire upon removal: Yes Internal Length: 39 cm External Length: 0 cm Trim Length: 39 cm Mid-Arm Circumference: 25 centimeters Post Insertion Pain Level Related to Proce dure: 0 Action Taken to Address Pain: None needed Verified Placement: Blood return and flushes withease and Tip location system or device indicates the tip is located in the SVC/CAJ. Line was Flushed with 20 mL normal saline Line Secured with: Securement device Sterile Dressing Applied and Dated: Yes Sterile Caps on all Ports Prior to Leaving Procedure Area: Yes, Disinfection caps applied SPECIMENS: None COMPLICATIONS: Patient with baseline nausea/vomiting upon arrival to room. Bedside RN at bedside to provide medication. Patient positioned for comfort. Patient Education Materials: Left at bedside [facility] Central Line Insertion checklist was utilized during this procedure. QUESTIONS or PROBLEMS: Page [phone] SIGNATURE: Eileen Hernandez RN PATIENT NAME: Charles Blandon DATE: 2024 TIME: 11:18 AM PAGER/CONTACT PHONE: XR ABDOMEN 1V SUPINE Result Date: 10/24/2024 * * *Final Report* * * DATE OF EXAM: Oct 24 2024 5:36AM [facility] [id number] - XR ABDOMEN 1V SUPINE / PROCEDURE REASON: Nausea/Vomiting * * * * Physician Interpretation * * * * ABDOMEN, 1 VIEW 10/24/2024 CLINICAL INFORMATION: Nausea/Vomiting. TECHNIQUE: Supine frontal view, 1 image(s) COMPARISON: 10/19/2024 RESULT: See impression. IMPRESSION: Lines, tubes, and devices: Right upper quadrant TIPS, cholecystostomy tube, and surgical clips. Bowel: Gastric gaseous distention. Scattered gas-filled nondilated small bowel and colon. Stripper Apprentice: [facility] Transcribe Date/Time: Oct 24 2024 8:25A Dictated by : AUTUMN CORRALES MD This exam ination was interpreted and the report reviewed and electronically signed by: AUTUMN CORRALES MD on Oct 24 2024 8:26AM EST US DOPPLER COMPLETE Result Date: 10/19/2024 * * *Final Report* * * DATE OF EXAM: Oct 19 2024 4:12PM [facility] [place] 1033 - US DOPPLER COMPLETE / PROCEDURE REASON: Liver transplant * * * * Physician Interpretation * * * * EXAMINATION: LIVER VASCULAR ULTRASOUND WITH DOPPLER IMAGING CLINICAL HISTORY: 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 Images were obtained and stored in a permanent archive. MQ: USLV_1 COMPARISON: CT 10/18/2024, liver ultrasound 10/08/2024 RESULT: Sonographic Findings: Pancreas: Normal sonographic appearance. Portions obscured: tail Liver: Echotexture: Normal, homogeneous. Echogenicity: Normal Surface contour: Smooth Lesions: None. Biliary: No intrahepatic biliary duct dilation. Pneumobilia, stable. CBD: 0.7 cm at the hilum. CBD stent present. Gallbladder: Absent Right Kidney: No hydronephrosis. Spleen: Craniocaudal length 9.3 cm, normal. There are no splenic lesions. Other: Small volume loculated abdominal ascites. HEPATIC VASCULATURE: PORTAL SYSTEM: - Splenic Vein: Patent with antegrade flow (towards the liver). -Main PV: Patent with phasic antegrade flow (towards liver). 38-53 cm/sec -Right anterior PV: Patent with phasic antegrade flow (towards liver). 38 cm/sec -Right posterior PV: Patent with phasic antegrade flow (towards liver). 32 cm/sec -Left PV: Patent with phasic antegrade flow (towards liver). 26 cm/sec HEPATIC ARTERIES: - Main THIBODEAUX: Normal waveform PSV: 70-84 cm/sec. RI: 0.76-0.8 - Right anterior THIBODEAUX: Normal waveform PSV: 66 cm/sec. RI: 0.72 - Right posterior THIBODEAUX: Normal waveform PSV: 66 cm/sec. RI: 0.77 - Left THIBODEAUX: Normal waveform PSV: 73 cm/sec. RI: 0.77 HEPATIC VEINS:-Left: Patent with triphasic waveform. -Middle: Patent with triphasic waveform. -Right: Patent withtriphasic waveform. IVC: Patent with normal, phasic wave form. IMPRESSION: Patent hepatic vasculature with appropriately directed flow. 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 Small volume loculated ascites. No splenomegaly. Stable pneumobilia Stripper Apprentice: [facility] Transcribe Date/Time: Oct 19 2024 4:18P Dictated by : STEWART BROUSSARD MD This examination was interpreted and the report reviewed and electronically signed by: AKIKO PHAN MD on Oct 19 2024 4:29PM [facility] US ABD LIVER VASCULAR TRANSPLANT () Result Date: 10/19/2024 * * *Final Report* * * DATE OF EXAM: Oct 19 2024 3:55PM [facility] [place] 0685 - [facility] LIVER VASCULAR TRANSPLANT / PROCEDURE REASON: Liver transplant * * * * Physician Interpretation * * * * EXAMINATION: LIVER VASCULAR ULTRASOUND WITH DOPPLER IMAGING CLINICAL HISTORY: 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 Images were obtained and stored in a permanent archive. MQ: USLV_1 COMPARISON: CT 10/18/2024, liver ultrasound 10/08/2024 RESULT: Sonographic Findings: Pancreas: Normal sonographic appearance. Portions obscured: tail Liver: Echotexture: Normal, homogeneous. Echogenicity: Normal Surface contour: Smooth Lesions: None. Biliary: No intrahepatic biliary duct dilation. Pneumobilia, stable. CBD: 0.7 cm at the hilum. CBD stent present. Gallbladder: Absent RightKidney: No hydronephrosis. Spleen: Craniocaudal length 9.3 cm, normal. There are no splenic lesions. Other: Small volume loculated abdominal ascites. HEPATIC VASCULATURE: PORTAL SYSTEM: - Splenic Vein: Patent with antegrade flow (towards the liver). -Main PV: Patent with phasic antegrade flow (towards liver). 38-53 cm/sec -Right anterior PV: Patent with phasic antegrade flow (towards liver). 38 cm/sec -Right posterior PV: Patent with phasic antegrade flow (towards liver). 32 cm/sec -Left PV: Dunlap nt with phasic antegrade flow (towards liver). 26 cm/sec HEPATIC ARTERIES: - Main THIBODEAUX: Normal waveform PSV: 70-84 cm/sec. RI: 0.76-0.8 - Right anterior THIBODEAUX: Normal waveform PSV: 66 cm/sec. RI: 0.72 - Right posterior THIBODEAUX: Normal waveform PSV: 66 cm/sec. RI: 0.77 - Left THIBODEAUX: Normal waveform PSV: 73 cm/sec. RI: 0.77 HEPATIC VEINS: -Left: Patent with triphasic waveform. -Middle: Patent with triphasic waveform. -Right: Patent with triphasic waveform. IVC: Patent with normal, phasic wave form. IMPRESSION: Patent hepatic vasculature with appropriately directed flow. 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 Small volume loculated ascites. No splenomegaly. Stable pneumobilia Stripper Apprentice: [facility] Transcribe Date/Time: Oct 19 2024 4:18P Dictated by : STEWART BROUSSARD MD This examination was interpreted and the report reviewed and electronically signed by: AKIKO PHAN MD on Oct 19 2024 4:29PM EST XR ABDOMEN 1V SUPINE Result Date: 10/19/2024 * * *Final Report* * * DATE OF EXAM: Oct 19 2024 2:22PM [facility] [id number] - XR ABDOMEN 1V SUPINE / PROCEDURE REASON: Abdominal pain * * * * Physician Interpretation * * * * EXAM: KUB ABDOMEN. CLINICAL INFORMATION: Abdominal pain TECHNIQUE: Supine abdomen, 2 image(s) COMPARISON: 10/07/2024, CT dated 10/18/2024 RESULT: See Impression. IMPRESSION: Support lines and tubes: RIGHT mid abdominal catheter present. CBD stent present. Bowelgas pattern: Mildly dilated colon with the transverse colon measuring up to 6.2 cm. This is likely ileus. No significant small bowel dilatation. Calcifications: RIGHT upper quadrant surgical clips. Tr anscriptionist: [facility] Transcribe Date/Time: Oct 19 2024 3:20P Dictated by : AKIKO PHAN MD This examination was interpreted and the report reviewed and electronically signed by: AKIKO PHAN MD onOct 19 2024 3:24PM EST CT ABDOMEN WO IVCON Result Date: 10/18/2024 * * *Final Report* * * DATE OF EXAM: Oct 18 2024 3:27PM [facility] [place] 0534 - CT ABDOMEN WO IVCON / PROCEDURE REASON: Post-operative / post-procedure assessment, symptomatic * * * * Physician Interpretation * * * * EXAMINATION: CT ABDOMEN WITHOUT IV CONTRAST CLINICAL HISTORY: Abdominal pain, post drain placement.Patient is status post liver transplant. Status post drainage of RIGHT hydrothorax on 09/09/2024 TECHNIQUE: Non-IV contrast imaging of the abdomen was performed using standard technique, scanning from just above the dome of the diaphragm to the iliac crest. Unenhanced imaging is limited for the evaluation of some intra-abdominal pathology. MQ: CTAbdWO_3 Contrast: IV: None Oral: 300 ml of Omni [id number] diluted with water CT Radiation dose: Integrated Dose-length product (DLP) for this visit =208 mGy*cm. CT Dose Reduction Employed: Automated exposure control (AEC) COMPARISON: 10/16/2024 RESU LT: Liver: Unenhanced liver allograft is unremarkable. Previously seen geographic area of low-attenuation in segment 4/8 is less well seen without IV contrast, but is overall stable. No definite new hepatic focal lesions on this study. Biliary: Pneumobilia. Biliary stent in place. There has been interval placement of a percutaneous drainage catheter with decompression of the gallbladder fossa collection. Currently the collection measures 2.6 x 1.4 cm (3:46), previously 5.2 x 3.8 cm. Spleen: No splenomegaly. Pancreas: Unremarkable. Adrenals: No mass. Kidneys: Previously administered excreted co ntrast in both collecting systems. No hydronephrosis. GI Tract: No bowel dilation. Lymph Nodes: No lymphadenopathy. Mesentery/peritoneum: Moderate abdominal ascites, similar in volume as compared to prior study. No new focal drainable fluid collections. Retroperitoneum: No mass. Vasculature: No aortic aneurysm. Atherosclerotic calcifications. Patency of hepatic vasculature cannot be established on this unenhanced study. Bones/Soft Tissues: Degenerative changes. Remote healed rib fractures. Lower thorax: Essentially stable RIGHT hydropneumothorax and moderate LEFT pleural effusion. Localizer images: No additional findings. IMPRESSION: Interval placement of a percutaneous drainage catheter with decompression of the gallbladder fossa collection. Moderate volume abdominal ascites, similar to prior study. Essentially stable RIGHT hydropneumothorax and moderate LEFT pleural effusion. Stripper Apprentice: [facility] Transcribe Date/Time: Oct 18 2024 4:19P Dictated by : AKIKO PHAN MD This examination was interpreted and the report reviewed and electronically signed by: AKIKO PHAN MD on Oct 18 2024 4:28PM EST US IMAGING GUIDED DRAIN PLACEMENT PERITONEAL/RETROPERITD Result Date: 10/17/2024 * * *Final Report* * * DATE OF EXAM: Oct 17 2024 5:03PM [facility] 1170 - US DRN PLACE PERIT/RETROP FL BI / PROCEDURE REASON: Liver transplant * * * * Physician Interpretation * * * * PROCEDURE PERFORMED: ULTRASOUND GUIDED DRAIN PLACEMENT PRE-PROCEDURE DIAGNOSIS: Abdominal fluid collection(s) POST- PROCEDURE DIAGNOSIS: Same as pre-procedure diagnosis INDICATION FOR PROCEDURE: gallbladder fossa collection RELEVANT PRIOR STUDIES: CT 10/16/2024 STAFF RADIOLOGIST: Dr. Julio MARKETING DESIGNER(S):Dr. Boss CONSENT: The risks, benefits, treatment options, potential complications and personnelinvolved were discussed with the patient. All questions were answered and consent was obtained. The patient indicated willingness to proceed. The staff physician personally verified consent. TIME OUT: A time out was performed immediately prior to procedure start with the nursing, anesthesia and interventional team, correctly identifying the patient name, date of , procedure, anatomy (including marking of site and side), patient position, procedure consent form, relevant diagnostic and radiology test results, antibiotic administration, safety precautions, and procedure-specific equipment needs. RESULT: PROCEDURE: After performing the time out, the abdominal fluid collection was localized with ultrasound, images were obtained and archived. The right upper quadrant was prepped and draped in the usual sterile fashion. Under ultrasound guidance, an 18 gauge trochar needle was advanced into the collection using a transhepatic approach. Then, a guide wire was inserted and the tract was serially dilated to 9 Burundian. A 10 Burundian locking pigtail catheter was then inserted. Its position was confirmed and then it was locked. A sample was aspirated. The catheter was sutured to the skin with monofilament suture and attached to a J-P bulb drain. The procedure was performed by the: attending radiologist, with an insurance account assistant. The attending radiologist performed the following procedural activities: Supervised entire procedure ANESTHESIA/SEDATION: Conscious sedation: Versed: 1.0 mg IV Fentanyl: 50 mcg IV Local anesthesia: Lidocaine 1%: 17 cc Vital signs were monitored by the nurse. STARTTIME/TIMEOUT TIME: 16:35 END TIME: 17:00 INTRA- SERVICE (SEDATION) TIME: 30 minutes PATIENT MONITORING: The staff physician personally supervised and directed an independent trained observer who assisted in monitoring the patient?s level of consciousness and physiological status throughout the procedure. SIGNIFICANT COMPLICATIONS: None MINOR COMPLICATIONS: None SIGN-OUT DISCUSSION: Completed ESTIMATED BLOOD LOSS: Trace SPECIMENS: 40 cc of cloudy bilious fluid aspirated and samples sent to microbiology . Sample also sent for bilirubin and cell count. DRAIN(S): 10 Burundian pigtail drain IMPRESSION: ULTRASOUND GUIDED TRANSHEPATIC DRAIN PLACEMENT IN GALLBLADDER FOSSA COLLECTION. Stripper Apprentice: PSCPatricia Transcribe Date/Time: Oct 17 2024 5:16P Dictated by : AMARILIS BOSS MD This examination was interpreted and the report reviewed and electronically signed by: [facility]ON [facility]24[facility] EST ECHO Result Date: 10/17/2024 Echocardiography Report: Transthoracic Echo [facility] Bedside Date of service: 10/17/2024 11:11:17 AM ANALYST Ordering physician: BRANDI ALARCON Exam indication: Shortness of Breath Technologist: Ria Weaver Interpreting physician: Lena Whalen MD PATIENT: Name: MR. CHARLES BLANDON : 1955 Age: 69 years Gender: M History of hypertension and chronic kidney disease. Previous cardiovascular interventions: Liver transplant Primary rhythm: sinus. Height: 175.30 cm BSA: 1.82 m??? Weight: 67.80 kg BMI: 22.1 kg/m??? Heart rate 78 bpm Blood pressure 136/79 mmHg Technically difficult exam due to body habitus and suboptimal positioning. Color Doppler was utilized to interrogate the cardiac valves assessed and spectral Doppler was utilized to determine the flow velocities and pressure gradients reported in this exam. MEASUREMENTS: Value Indexed Normal LV ID(diastole) 4.8 cm (2D) 2.62 cm/m??? LV ID (systole) 3.1 cm (2D) 1.73 cm/m??? IVS, leaflet tips 1.1 cm (2D) Posterior wall thickness 1.1 cm (2D) Left ventricular mass 190 g (2D) 105 g/m??? Ejection Fraction 55 % (visual est.) EF > 52 FINDINGS: LEFT VENTRICLE The left ventricle is normal in size. Left ventricular systolic function is normal. Left ventricular diastolic function was not evaluated due to limited. Mitral annular lateral E/e': 5.7. Mitral annular septal E/e': 9.3. Wall Motion: All scored segments are normal. RIGHT VENTRICLE Estimated right ventricular systolic pressure is not reported due to an insufficient tricuspid regurgitation signal. Estimated right atrial pressure is 8 mmHg based on IVC assessment. RIGHT ATRIUM Inferior Vena Cava: The inferior vena cava appears normal measuring 1.5 cm. The vessel decreases less than 50 percent with inspiration. MITRAL VALVE There is t race mitral valve regurgitation. There is mild thickening. The pressure half time is 54 msec. The peak mitral E/A ratio is 0.99. The average mitral E/e' ratio is 7.5. The mitral flow deceleration time is 187 msec. TRICUSPID VALVE There is trace tricuspid valve regurgitation. There is no thickening.AORTIC VALVE There is no aortic valve regurgitation. Tricuspid aortic valve. There is mild thickening. There is mild calcification. The peak gradient is 6 mmHg (peak velocity = 118.1 cm/s). PULMONIC VALVE The pulmonic valve was not seen or not interrogated. There is trace pulmonic valve regurgitation. PERICARDIUM There is no pericardial effusion. There is a right pleural effusion. There is an epic ardial fat pad. CONCLUSIONS: - Technically difficult exam due to body habitus and suboptimal positioning. - Exam indication: Shortness of Breath - The left ventricle is normal in size. Left ventricular systolic function is normal. EF = 55 ??? 5% (visual est.) - Aortic sclerosis. - Exam was compared with the prior echocardiographic exam performed on 09/21/2024. Right pleural effusion seen. * * * Final * * * [employer] [facility] : [id number]^[employer]^SI^SUID CT ABD/PEL W IVCON Result Date: 10/16/2024 * * *Final Report* * * DATE OF EXAM: Oct 16 2024 12:48PM [facility] 0530 - CT ABD/PEL W IVCON / PROCEDURE REASON: Abnormal ERCP * * * * Physician Interpretation * * * * EXAMINATION: CT ABDOMEN AND PELVIS WITH IV CONTRAST CLINICAL HISTORY: EtOH cirrhosis/HCC, s/p DCD-OLT and drainage of right hydrothorax on 09/09/2024. Admitted for worsening abdominal distention, ascites. Concern for possible portal vein thrombus noncontrast CT. Underwent ERCP 10/15/2024 which demonstrated postoperative stricture, possible contained bile leak from the cystic duct, biliary pus/stones. TECHNIQUE: CT of the abdomen and pelvis was performed using standard technique, scanning from just above the dome of the diaphragm to the symphysis pubis. MQ: CTAP_3 Contrast: IV: 100 ml of Omnipaque 350 Oral: 300 ml of Omni 350 10-25ml diluted with water CT Radiation dose: Integrated Dose-length product (DLP) forthis visit = 639 mGy*cm. CT Dose Reduction Employed: mAs-kVp adjusted based on patient size-age COMPARISON: CT abdomen/pelvis 10/07/2024 RESULT: Liver: * Liver transplant. Mild periportal edema. * Slight interval decreased size of geographic area of low-attenuation in segments 4/8 since 10/07/2024 counting for differences of technique. Possibly resolving infarct versus inflammation. No new hepatic lesions. Biliary: * Cholecystectomy. 5.2 x 3.8 cm collection in the gallbladder fossa (3:59) containing small amount of contrast, likely corresponding with leak identified on recent ERCP. * CBD stent in place. * No biliary duct dilation. Trace pneumobilia, presumably postoperative. Spleen: No mass. No splenomegaly. Pancreas: No mass or duct dilation. Adrenals: No mass. Kidneys: No mass, calculus or hydronephrosis. GI tract: Few borderline and mildly dilated fluid and gas filled loops of small bowel without discrete transition point. No wall thickening. Diverticulosis. Lymph nodes: No abdominalor pelvic lymphadenopathy. Mesentery/Peritoneum: Moderate volume ascites. No drainable collections.Diffuse mesenteric edema. Retroperitoneum: No mass. Vasculature: - Abdominal aorta and iliac arteries: Atherosclerotic calcifications without aneurysm. - Celiac and SMA: Patent without stenosis. - Portal venous system (SMV, splenic vein, portal vein and branches): Patent. - Hepatic veins: Patent. - Other: Hepatic artery and anastomosis appears patent. Pelvis: Moderate ascites. No organized collections. No mass. Bones/Soft Tissues: Unchanged [id number] fractures. No acute osseous abnormalities. Ascites within right inguinal hernia. Diffuse bilateral edema. Lower thorax: Stable bilateral pleural effusions, partially loculated on the right with hydropneumothorax. Localizer images: No additional findings. IMPRESSION: 5.2 cm collection in the gallbladder fossa with small amount of contrast, likely contained bile leak. Stable to slightly decreased size of geographic low-attenuation in the right hepatic lobe, possibly inflammatory or evolving infarct. Moderate volume abdominopelvic ascites. Stable right hydropneumothorax and bilateral pleural effusions. Stripper Apprentice: PSCB Transcribe Date/Time: Oct 16 2024 1:06P Dictated by : JIM ANAYA MD This examination was interpreted and the report reviewed and electronically signed by: EVERTON JULIO MD on Oct 16 2024 2:07PM EST ERCP Result Date: 10/15/2024 Q3 Patient Name: Charles Blandon Procedure Date: 10/15/2024 3:44 PM Date of : 1955 Admit Type: Inpatient Age: 69 Gender: Male Note Status: Finalized Attending MD: Elizabeth Dixon MD, [id number] Procedure: ERCP Indications: Elevated alkaline phosphatase, Post liver transplant assessment Providers: Elizabeth Dixon MD, Bebo Barker MD (Fellow), Kathy Alberts MD (1st Assisting Doctor) Patient Profile: This is a 69 year old male. Refer to note in patient chart for documentation of history and physical. Referring Physician: Xuan Melendrez (Referring MD) Medicines: General Anesthesia Complications: No immediate complications. Requesting Provider: Procedure: Pre- Anesthesia Assessment: - Prior tothe procedure, a History and Physical was performed, and patient medications and allergies were reviewed. The patient's tolerance of previous anesthesia was also reviewed. The risks and benefits of t he procedure and the sedation options and risks were discussed with the patient. All questions wereanswered, and informed consent was obtained. Prior Anticoagulants: The patient has taken no anticoagulant or antiplatelet agents. ASA Grade Assessment: III - A patient with severe systemic disease. After reviewing the risks and benefits, the patient was deemed in satisfactory condition to undergo the procedure. After obtaining informed consent, the scope was passed under direct vision. Throughoutthe procedure, the patient's blood pressure, pulse, and oxygen saturations were monitored continuously. The Duodenoscope was introduced through the mouth, and advanced to the duodenum and used to inject contrast into the bile duct. The ERCP was accomplished without difficulty. The patient tolerated the procedure well. Moderate Sedation: General anesthesia was administered by the anesthesia team. Findings: A contestant coordinator film of the abdomen was obtained. Surgical clips, consistent with a previous chol ecystectomy and known liver transplant, were seen in the area of the right upper quadrant of the abdomen. The major papilla was adjacent to a diverticulum. The bile duct was deeply cannulated with the traction (standard) sphincterotome. Contrast was injected. I personally interpreted the bile duct images. Ductal flow of contrast was adequate. Image quality was excellent. Contrast extended to the main bile duct. Contrast extended to the bifurcation. Contrast extended to the hepatic ducts. The common hepatic duct contained filling defect(s) thought to be a stone and sludge. Extravasation of contrast originating from the donor cystic duct remnant was observed consistent with a leak that appeared contained. The recipient cystic duct remnant was normal. The common hepatic duct contained a single moderate stenosis 10 mm in length. Biliary sphincterotomy was made with a monofilament traction (standard) sphincterotome using ERBE electrocautery. There was no post-sphincterotomy bleeding. The biliary tree was swept with an 11.5 mm balloon starting at the bifurcation. Pus and debris was swept from the duct. Large stone proximal to the stenosis could not be removed. One 10 mm by 10 cm coveredmetal stent was placed 9 cm into the common bile duct. Bile flowed through the stent. The stent wasin good position. Impression: - The major papilla was adjacent to a diverticulum. - Filling defectsconsistent with stones and sludge was seen on the cholangiogram. - A single moderate biliary stricture was found in the common hepatic duct. The stricture was post-surgical. - A bile leak was found eminating from the donor cystic duct remnant which appeared to be contained. - A biliary sphincterotomy was performed. - The biliary tree was swept and pus and debris were found. Large stone proximalto the stenosis could not be removed. - One covered metal stent was placed into the common bile duct. Estimated Blood Loss: Estimated blood loss: none. Recommendation: - [facility]. - Resume previous diet. - Repeat ERCP in 1 month for stent removal and cholangioscopy with EHL. Procedure Code(s): --- Professional --- 72793, Endoscopic retrograde cholangiopanc reatography (ERCP); with placement of endoscopic stent into biliary or pancreatic duct, including pre- and post-dilation and guide wire passage, when performed, including sphincterotomy, when performed, each stent 67536, Endoscopic retrograde cholangiopancreatography (ERCP); with removal of calculi/ debris from biliary/pancreatic duct(s) 70446, Endoscopic catheterization of the biliary ductal system, radiological supervision and interpretation Diagnosis Code(s): --- Professional --- K91.89, Other postprocedural complications and disorders of digestive system K83.1, Obstruction of bile duct K83.9, Disease of biliary tract, unspecified R74.8, Abnormal levels of other serum enzymes Z09, Encounter for follow-up examination after completed treatment for conditions other than malignant neoplasm Z94.4, Liver transplant status R93.2, Abnormal findings on diagnostic imaging of liver and biliary tract CPT copyright 2020 [employer]. All rights reserved. Attending Participation:I was present and participated during the entire procedure, including non-david portions. Scope In: 4:11:32 PM Scope Out: 4:36:21 PM MD Elizabeth Bacon MD 10/15/2024 5:13:53 PM This report has been signed electronically by MD Kathy Reynolds MD Number of Addenda: 0 No te Initiated On: 10/15/2024 3:44 PM XR CHEST 1V FRONTAL PORT Result Date: 10/15/2024 * * *Final Report* * * DATE OF EXAM: Oct 14 2024 7:18PM DESIRAE [id number] - XR CHEST 1V FRONTAL PORT / PROCEDURE REASON: Post-operative/post-procedure assessment * * * * Physician Interpretation * * * * EXAMINATION: CHEST RADIOGRAPH (PORTABLE SINGLE VIEW AP) Exam Date/Time: 10/14/2024 7:18 PM Clinical History: Post-operative/post-procedure assessment MQ: XCPMC_6 Comparison: 1 day prior RESULT: Lines, tubes, and devices: The patient is rotated to the right. Lungs and pleura: Moderate right pleural effusion is noted, possibly redistributed. Also noted is small left pleural effusion. There is central pulmonary venous congestion without overt edema. Patchy opacities are noted at the lung bases, likely related to atelectasis. No definite pneumothorax is noted. Cardiomediastinal silhouette: Stable cardiomediastinal silhouette. Calcification of the aortic arch is noted with tortuosity/ectasia of the descending thoracic aorta. Other: . IMPRESSION: See result. Stripper Apprentice: [facility] Transcribe Date/Time: Oct 15 2024 7:37A Dictated by :BULMARO WINN MD This examination was interpreted and the report reviewed and electronically signed by: BULMARO WINN MD on Oct 15 2024 7:38AM EST XR CHEST 1V FRONTAL PORT Result Date: 10/11/2024 * * *Final Report* * * DATE OF EXAM: Oct 11 2024 11:23AM [facility] [id number] - XR CHEST 1V FRONTAL PORT / PROCEDURE REASON: Shortness of breath * * * * Physician Interpretation * * * * EXAMINATION: CHEST RADIOGRAPH (PORTABLE SINGLE VIEW AP) Exam Date/Time: 10/11/2024 11:23 AM Clinical History: Shortness of breath MQ: XCPMC_6 Comparison: 10/06/2024 RESULT: Lines, tubes, and devices: None.Lungs and pleura: A loculated medium-sized RIGHT related to atelectasis/consolidation adjacent lung. A trace LEFT pleural effusion is present with adjacent atelectasis. No substantial pneumothorax isidentified. Cardiomediastinal silhouette: The cardiomediastinal silhouette remains enlarged, unchanged. There are atherosclerotic calcifications in the thoracic aorta. Other: There are multiple remote right-sided rib fractures. IMPRESSION: See result Stripper Apprentice: [facility] Transcribe Date/Time: Oct 11 2024 11:40A Dictated by : PAWAN LUNA MD This examination was interpreted and the report reviewed and electronically signedby: PAWAN LUNA MD on Oct 11 2024 11:42AM EST CT CHEST WO IVCON Result Date: 10/08/2024 * * *Final Report* * * DATE OF EXAM: Oct 08 2024 1:05PM 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 Technique: Spiral CT acquisition of the chest from the thoracic inlet to the upper abdomen without contrast. MQ: CTCWO_6 CT Radiation dose: Integrated Dose-length product (DLP) for this visit = 171 mGy*cm CT Dose Reduction Employed: Automated exposure control (AEC) C omparison: CT chest, 09/01/2024 RESULT: Limitations: None. Lines, tubes, and devices: None. Lung parenchyma , pleural spaces and airways: Interval development of a loculated moderate-sized right hydropneumothorax. The pneumothorax component and air-fluid levels are new although the volume of pleural effusion has decreased since the prior (to be correlated with any recent thoracentesis/pleural fluid drainage procedures). Increase in volume of low- attenuation, medium-sized left pleural effusion without any left pneumothorax. Interval reexpansion of previously collapsed portions of the right middle and lower lobes. Persistent subpleural atelectasis in the posterior right lower lobe. Subpleuralcurvilinear consolidative opacity in the right middle lobe is possibly related to rounded atelectasis (image 89, Agfa series 3). Mild peribronchial thickening and interlobular septal thickening in the right lung. Mild worsening of dependent atelectasis in the posterior left lung base. A 4 mm superior segment LLL nodule along the left major fissure is new and possibly represents atelectasis (image36). Mild curvilinear atelectasis in the inferior lingula. The trachea and major bronchi are patent. There is luminal effacement of subsegmental bronchi in the bilateral lower lobes/posterior lung bases, right more than left. Lower neck, lymph nodes, and mediastinum: The imaged thyroid gland is unremarkable. No supraclavicular or axillary lymphadenopathy. Multiple subcentimeter and a few borderline enlarged mediastinal lymph nodes have increased in size compared to the previous CT. For example,an upper right paratracheal node which previously measured 4-5 mm in short axis now measures 9- 10 mm in short axis (image 41, Agfa series 4) and a lower right paratracheal lymph node which previouslymeasured 5-6 mm in short axis now measures 10-11 mm in short axis (image 65, Agfa series 4). The upper thoracic esophagus is minimally patulous with an air-fluid level. The GE junction is collapsed. Heart, pericardium, and thoracic vessels: The aortic root appears mildly dilated although accurate measurement is limited given cardiac pulsation and noncontrast technique. Mild aortic root calcifications noted. The ascending thoracic aorta measures 3.7-3.8 cm in its mid segment, upper limits normal. The aortic arch and descending thoracic aorta are normal in caliber with mild atherosclerotic calci fications. The main and central pulmonary arteries are normal in caliber. There are severe diffuse coronary calcifications with probable coronary artery stents although the present scan is not optimized for coronary assessment. The cardiac chambers are normal in size. Increase in volume of a small pericardial effusion which now measures up to 10 mm anteriorly (image 128, Agfa series 4). Bones and soft tissues: No destructive bone lesion. Diffuse osteopenia with compression fracture/collapse ofthe T11 and T12 (counting from top). Mild loss of height in multiple lower thoracic vertebrae, suchas the T7 and T8. Remote fractures of multiple right ribs with callus formation (anterior third through sixth, anterolateral seventh, lateral eighth ribs). Remote fracture of the lateral left seventhand eighth ribs and posterior left 10th rib. Moderate bilateral gynecomastia. Mild bilateral flank edema. Upper abdomen: Postsurgical changes of liver transplant with upper abdominal ascites. Please review abdominal CT report from 10/07/2024 for details. Localizer images: No additional findings. IMPRESSION: Moderate-sized loculated right hydropneumothorax; the pneumothorax component is new while the pleural fluid as decreased in volume compared to the earlier CT from 09/01/2024. Correlate with history of recent thoracentesis or pleural drainage procedures. Interval increase in volume of a low-attenuation, medium-sized left pleural effusion. Improved aeration of previously atelectatic portions of the right lung with persistent atelectasis in the posterior right base and probable roundedatelectasis in the subpleural right middle lobe. Worsening atelectasis in the posterior left lung base. Superimposed pneumonia/aspiration within the atelectatic portions of the bilateral lung bases cannot be excluded. Asymmetric mild/smooth peribronchial and septal thickening in the right lung is suggestive of nonspecific perilymphatic/venous edema. Interval increase in size of a few borderline enlarged intrathoracic lymph nodes which are nonspecific, potentially reactive although follow-up is suggested. Interval development of a small anterior pericardial effusion. Diffuse osteopenia with collapsed compression of the T11 and T12 vertebrae, as well as multiple sequential bilateral rib fractures. Stripper Apprentice: [facility] Transcribe Date/Time: Oct 08 2024 1:26P Dictated by : RUPA COVINGTON MD This examination was interpreted and the report reviewed and electronically signed by: RUPA COVINGTON MD on Oct 08 2024 1:53PM EST XR ABDOMEN 1 VWS Result Date: 10/08/2024 * * *Final Report* * * DATE OF EXAM: Oct 07 2024 10:49AM [id number] - XR ABDOMEN 1V SUPINE / PROCEDURE REASON: ABD PAIN, FEVER, NO RECENT SURGERY * * * * Physician Interpretation * * * * Clinical Information: Abdominal pain, abdominal distention Supine views of the abdomen were obtained. Comparison: 10/06/2024 Gaseous distention of small bowel loops appears stable to mildly improved. No abnormal abdominal masses are identified. No pathologic calcifications. No acute bony abnormalities are seen. IMPRESSION: Stable to mildly improved gaseous distention of small bowel loops may indicate improving ileus or improving low grade/partial obstruction. Stripper Apprentice: [facility] Transcribe Date/Time: 2024 1:06P Dictated by : AMARILIS MACK MD This examination was interpreted and the report reviewed and electronically signed by: AMARILIS MACK MD on Oct 08 2024 1:08PM EST XR ABDOMEN 1V SUPINE Result Date: 10/08/2024 * * *Final Report* * * DATE OF EXAM: Oct 07 2024 10:49AM [id number] - XR ABDOMEN 1V SUPINE / PROCEDURE REASON: ABD PAIN, FEVER, NO RECENT SURGERY * * * * Physician Interpretation * * * * Clinical Information: Abdominal pain, abdominal distention Supine views of the abdomen were obtained. Comparison: 10/06/2024 Gaseous distention of small bowel loops appears stable to mildly improved. No abnormal abdominal masses are identified. No pathologic calcifications. No acute bony abnormalities are seen. IMPRESSION: Stable to mildly improved gaseous distention of small bowel loops may indicate improving ileus or improving low grade/partial obstruction. Stripper Apprentice: PSCB Transcribe Date/Time: 2024 1:06P Dictated by : AMARILIS MACK MD This examination was interpreted and the report reviewed and electronically signed by: AMARILIS MACK MD on Oct 08 2024 1:08PM EST US DOPPLER COMPLETE Result Date: 10/08/2024 * * *Final Report* * * DATE OF EXAM: Oct 08 2024 7:45AM U [id number] - US DOPPLER COMPLETE / PROCEDURE REASON: Liver transplant * * * * Physician Interpretation * * * * EXAMINATION:LIVER VASCULAR ULTRASOUND WITH DOPPLER IMAGING CLINICAL HISTORY: Old T5 2625 with concern for portal vein thrombosis on CT 10/07/2024 TECHNIQUE: Sonography of the liver with color and spectral Dopplerimaging of the hepatic vasculature was performed. Images were obtained and stored in a permanent archive. MQ: USLV_1 COMPARISON: CT 10/07/2024, liver vascular ultrasound 09/20/2024 RESULT: Sonographic Findings: Pancreas: Normal sonographic appearance. Portions obscured: tail Liver: Echotexture: Normal, homogeneous. Echogenicity: Similar heterogeneously hypoechoic parenchyma within the right hepatic dome, related to ischemia or operative handling. Surface contour: Smooth Lesions: None. Biliary: No intrahepatic biliary duct dilation. CBD: 1.1 cm at the hilum. Circumferential wall thickening of the extrahepatic CBD containing debris. Gallbladder: Right Kidney: No hydronephrosis. Spleen: Craniocaudal length 11 cm, normal. There are no splenic lesions. Other: Moderate volume ascites. With the patient supine and the transducer oriented perpendicular to the abdominal wall, an X was marked on the skin overlying the right lower quadrant. The following measurements were obtained: (1) Depth to enter the fluid collection: 2.0 cm (2) Depth to mid fluid collection: 4.1 cm 5.9 x 2.5 x 3.0 cm gallbladder fossa postoperative collection, mildly decreased from prior. HEPATIC VASCULATURE: PORTAL SYSTEM: - Splenic Vein: Patent with antegrade flow (towards the liver). -Main PV: Patent with phasic antegrade flow (towards liver). 57-68 cm/sec -Right anterior PV: Patent with phasic antegrade flow (towards liver). 33 cm/sec -Right posterior PV: Patent with phasic antegrade flow (towards liver). 28 cm/sec -Left PV: Patent with phasic antegrade flow (towards liver). 16 cm/sec HEPATIC ARTERIES: - Main THIBODEAUX: Normal waveform PSV: 66-68 cm/sec. RI: 0.78-0.82 - Right anterior THIBODEAUX: Normal waveform PSV: 45 cm/sec. RI: 0.73 - Right posterior THIBODEAUX: Normal waveform PSV: 61 cm/sec. RI: 0.73 - Left THIBODEAUX: Normal waveform PSV: 68 cm/sec. RI: 0.68 HEPATIC VEINS: -Left: Patent with triphasic waveform. -Middle: Patent with triphasic waveform. -Right: Patent with triphasic waveform. IVC: Patent with normal, phasic waveform. IMPRESSION: Patent hepatic vasculature with appropriately directed flow. CBD wall thickening containing debris. Recommend further evaluation with MR pancreas/biliary. Otherwise stable sonographic appearance of the transplant liver. Moderate volume ascites, marked in the right lower quadrant. ACTIONABLE RESULT: FOLLOW-UP Acuity: Actionable Findings: Pancreas/Biliary Routing Code: PB_1 Recommendation: MRI PANCREAS/BILIARY WO/W IV CONTRAST Time Frame: At the discretion of the clinical team. COMMUNICATION: Results will be communicated with the ordering provider via [employer]io staff message or phone message by [facility] within 2 business days of report finalization. --END OF FINDING-- Stripper Apprentice: SRINI Transcribe Date/Time: Oct 08 2024 8:41A Dictated by : RAQUEL WILKES MD This examination was interpreted and the report reviewed and electronically signed by: RAQUEL WILKES MD on Oct 08 2024 9:38AM EST US ABD LIVER VASCULAR Result Date: 10/08/2024 * * *Final Report* * * DATE OF EXAM: Oct 08 2024 7:30AM [facility] 1233 - US ABD LIVER VASCULAR / PROCEDURE REASON: Liver transplant * * * * Physician Interpretation * * * * EXAMINATION: LIVER VASCULAR ULTRASOUND WITH DOPPLER IMAGING CLINICAL HISTORY: Old T5 2625 with concern for portal vein thrombosis on CT 10/07/2024 TECHNIQUE: Sonography of the liver with color and spectral Doppler imaging of the hepatic vasculature was performed. Images were obtained and stored in a permanent archive. MQ: USLV_1 COMPARISON: CT 10/07/2024, liver vascular ultrasound 09/20/2024 RESULT: SonographicFindings: Pancreas: Normal sonographic appearance. Portions obscured: tail Liver: Echotexture: Normal, homogeneous. Echogenicity: Similar heterogeneously hypoechoic parenchyma within the right hepatic dome, related to ischemia or operative handling. Surface contour: Smooth Lesions: None. Biliary: No intrahepatic biliary duct dilation. CBD: 1.1 cm at the hilum. Circumferential wall thickening of the extrahepatic CBD containing debris. Gallbladder: Right Kidney: No hydronephrosis. Spleen: Craniocaudal length 11 cm, normal. There are no splenic lesions. Other: Moderate volume ascites. With the patient supine and the transducer oriented perpendicular to the abdominal wall, an X was marked onthe skin overlying the right lower quadrant. The following measurements were obtained: (1) Depth to enter the fluid collection: 2.0 cm (2) Depth to mid fluid collection: 4.1 cm 5.9 x 2.5 x 3.0 cm gallbladder fossa postoperative collection, mildly decreased from prior. HEPATIC VASCULATURE: PORTAL SYSTEM: -Splenic Vein: Patent with antegrade flow (towards the liver). -Main PV: Patent with phasic antegrade flow (towards liver). 57-68 cm/sec -Right anterior PV: Patent with phasic antegrade flow (tow ards liver). 33 cm/sec -Right posterior PV: Patent with phasic antegrade flow (towards liver). 28 cm/sec -Left PV: Patent with phasic antegrade flow (towards liver). 16 cm/sec HEPATIC ARTERIES: - Main THIBODEAUX: Normal waveform PSV: 66-68 cm/sec. RI: 0.78-0.82 - Right anterior THIBODEAUX: Normal waveform PSV: 45 cm/sec. RI: 0.73 - Right posterior THIBODEAUX: Normal waveform PSV: 61 cm/sec. RI: 0.73 - Left THIBODEAUX: Normal waveform PSV: 68 cm/sec. RI: 0.68 HEPATIC VEINS: -Left: Patent with triphasic waveform. -Middle: Patent with triphasic waveform. -Right: Patent with triphasic waveform. IVC: Patent with normal, phasic wave form. IMPRESSION: Patent hepatic vasculature with appropriately directed flow. CBD wall thickening containing debris. Recommend further evaluation with MR pancreas/biliary. Otherwise stable sonographic appearance of the transplant liver. Moderate volume ascites, marked in the right lower quadrant. ACTIONABLE RESULT: FOLLOW-UP Acuity: Actionable Findings: Pancreas/Biliary Routing Code: PB_1 Recommendation: MRI PANCREAS/BILIARY WO/W IV CONTRAST Time Frame: At the discretion of the clinical team. COMMUNICATION: Results will be communicated with the ordering provider via [employer]io staff message or phone message by [facility] within 2 business days of report finalization. --END OF FINDING-- Stripper Apprentice: SRINI Transcribe Date/Time: Oct 08 2024 8:41A Dictated by : RAQUEL WILKES MD This examination was interpreted and the report reviewed and electronically signed by: RAQUEL WILKES MD on Oct 08 2024 9:38AM EST CT ABDOMEN PELVIS WO CONTRAST Result Date: 10/07/2024 * * *Final Report* * * DATE OF EXAM: Oct 07 2024 3:00PM [facility] 0531 - CT ABD/PEL WO IVCON / PROCEDURE REASON: ILEUS, ASCITES * * * * Physician Interpretation * * * * EXAMINATION: CT ABDOMEN AND PELVIS WITHOUT IV CONTRAST CLINICAL HISTORY: Ileus/ascites. 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 TECHNIQUE: Non-IV contrast imaging of the abdomen and pelvis was performed using standard technique, scanning from just above the dome of the diaphragm to the symphysis pubis. Unenhanced imaging is limited for the evaluation of some intra-abdominal and pelvic pathology. MQ: CTAPWO_3 Contrast: IV: None CT Radiation dose: Integrated Dose-length product (DLP) for this visit = 263 mGy*cm. CT Dose Red uction Employed: Automated exposure control(AEC) and iterative recon COMPARISON: Ultrasound Dated 09/20/2024 and MRI dated 09/02/2024 RESULT: Abdomen / Pelvis: Liver: * Post OLT appearances again noted. * There is apparent interval luminal distention and hyperattenuation involving the main portal and right and left portal veins, concerning for acute portal venous thrombosis. * Persisting infiltrating hypodense area involving segments 8 and 4A (301/18). * No interval focal hepatic mass, allowingfor noncontrast study. Biliary: Gallbladder is surgically absent. No definite biliary dilatation noted. Spleen: No splenomegaly. Pancreas: Unremarkable. Adrenals: No mass. Kidneys: No calculus, hydronephrosis or finding to suggest a cyst or mass in the unenhanced kidney. GI Tract: The stomach is underdistended. Mildly distended small bowel loops, to a maximum of 2.9 cm (301/74), with normal caliber small bowel loops in the right lower quadrant. Gas-distended transverse colon. Scattered colonic diverticula. These appearances may represent partial small bowel obstruction. No evidence of extraluminal air. Lymph Nodes: No lymphadenopathy. Mesentery/peritoneum: Small to moderate volume ascites with generalized peritoneal stranding. Retroperitoneum: No mass. Vasculature: Suboptimally evaluated in the absence of IV contrast. Mild aortoiliac atherosclerotic changes, without aneurysm. Portal vein findings, as above. Pelvis: Moderate volume ascites. Urinary bladder, prostate and seminal vesicles are unremarkable. Bones/Soft Tissues: Stable loss of height of the T12 vertebral body with retropulsion. Interval anterior wedging of the T11 vertebral body, without significant retropulsion. Old rib fractures, with nonunion on the left (301/3). Osteopenia. Ascitic fluid is seen extending into a right inguinal hernia. Lower thorax: Moderate-sized bilateral pleural effusions, loculated on the right with bibasal atelectasis. Apparent loculated air within the right pleural cavity, partially visualized (301/1). This also appears to be present on the previous chest x-ray from 10/06/2024. Coronary calcifications. Trace pericardial fluid. Localizer images: No additional findings. IMPRESSION: 1. Appearances concerning for acute portal vein thrombosis in this patient with historyof recent OLT. Evaluation is suboptimal in the absence of IV contrast. Recommend correlation with ultrasound Doppler for confirmation. 2. Mildly distended small bowel loops with normal caliber small bowel in the right lower quadrant. Gas-distended transverse colon. Findings may represent low-grade,partial SBO. No extraluminal air noted. 3. Moderate volume ascites again seen. Moderate volume freeflowing left pleural effusion. 4. Apparent loculated right hydropneumothorax. Correlation with CT of the chest may be obtained for more definite evaluation. 5. Interval anterior wedging of the T11 vertebral body. COMMUNICATION: Communicated with DAVID CRUZ on 10/07/2024 3:54 PM via verbal communication. Stripper Apprentice: SRINI Transcribe Date/Time: Oct 07 2024 3:17P Dictated by : JOSE GUADALUPE MURPHY MD This examination was interpreted and the report reviewed and electronically signed by: JOSE GUADALUPE MURPHY MD on Oct 07 2024 4:01PM EST CT ABD/PEL WO IVCON Result Date: 10/07/2024 * * *Final Report* * * DATE OF EXAM: Oct 07 2024 3:00PM [facility] 0531 - CT ABD/PEL WO IVCON / PROCEDURE REASON: ILEUS, ASCITES * * * * Physician Interpretation * * * * EXAMINATION: CT ABDOMEN AND PELVIS WITHOUT IV CONTRAST CLINICAL HISTORY: Ileus/ascites. 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 TECHNIQUE: Non-IV contrast imaging of the abdomen and pelvis was performed using standard technique, scanning from just above the dome of the diaphragm to the symphysis pubis. Unenhanced imaging is limited for the evaluation of some intra-abdominal and pelvic pathology. MQ: CTAPWO_3 Contrast: IV: None CT Radiation dose: Integrated Dose-length product (DLP) for this visit = 263 mGy*cm. CT Dose Red uction Employed: Automated exposure control(AEC) and iterative recon COMPARISON: Ultrasound Dated 09/20/2024 and MRI dated 09/02/2024 RESULT: Abdomen / Pelvis: Liver: * Post OLT appearances again noted. * There is apparent interval luminal distention and hyperattenuation involving the main portal and right and left portal veins, concerning for acute portal venous thrombosis. * Persisting infiltrating hypodense area involving segments 8 and 4A (301/18). * No interval focal hepatic mass, allowingfor noncontrast study. Biliary: Gallbladder is surgically absent. No definite biliary dilatation noted. Spleen: No splenomegaly. Pancreas: Unremarkable. Adrenals: No mass. Kidneys: No calculus, hydronephrosis or finding to suggest a cyst or mass in the unenhanced kidney. GI Tract: The stomach is underdistended. Mildly distended small bowel loops, to a maximum of 2.9 cm (301/74), with normal caliber small bowel loops in the right lower quadrant. Gas-distended transverse colon. Scattered colonic diverticula. These appearances may represent partial small bowel obstruction. No evidence of extraluminal air. Lymph Nodes: No lymphadenopathy. Mesentery/peritoneum: Small to moderate volume ascites with generalized peritoneal stranding. Retroperitoneum: No mass. Vasculature: Suboptimally evaluated in the absence of IV contrast. Mild aortoiliac atherosclerotic changes, without aneurysm. Portal vein findings, as above. Pelvis: Moderate volume ascites. Urinary bladder, prostate and seminal vesicles are unremarkable. Bones/Soft Tissues: Stable loss of height of the T12 vertebral body with retropulsion. Interval anterior wedging of the T11 vertebral body, without significant retropulsion. Old rib fractures, with nonunion on the left (301/3). Osteopenia. Ascitic fluid is seen extending into a right inguinal hernia. Lower thorax: Moderate-sized bilateral pleural effusions, loculated on the right with bibasal atelectasis. Apparent loculated air within the right pleural cavity, partially visualized (301/1). This also appears to be present on the previous chest x-ray from 10/06/2024. Coronary calcifications. Trace pericardial fluid. Localizer images: No additional findings. IMPRESSION: 1. Appearances concerning for acute portal vein thrombosis in this patient with history of recent OLT. Evaluation is suboptimal in the absence of IV contrast. Recommend correlation with ultrasound Dopplerfor confirmation. 2. Mildly distended small bowel loops with normal caliber small bowel in the right lower quadrant. Gas-distended transverse colon. Findings may represent low-grade, partial SBO. No extraluminal air noted. 3. Moderate volume ascites again seen. Moderate volume free flowing left pleural effusion. 4. Apparent loculated right hydropneumothorax. Correlation with CT of the chest may be obtained for more definite evaluation. 5. Interval anterior wedging of the T11 vertebral body. COMMUNICATION: Communicated with DAVID CRUZ on 10/07/2024 3:54 PM via verbal communication. Stripper Apprentice: SRINI Transcribe Date/Time: Oct 07 2024 3:17P Dictated by : JOSE GUADALUPE MURPHY MD This examination was interpreted and the report reviewed and electronically signed by: JOSE GUADALUPE MURPHY MD on Oct 07 2024 4:01PM EST [id number]^ACN CT ABD/PEL WO IVCON Result Date: 10/07/2024 * * *Final Report* * * DATE OF EXAM: Oct 07 2024 3:00PM [facility] 0531 - CT ABD/PEL WO IVCON / PROCEDURE REASON: ILEUS, ASCITES * * * * Physician Interpretation * * * * EXAMINATION: CT ABDOMEN AND PELVIS WITHOUT IV CONTRAST CLINICAL HISTORY: Ileus/ascites. 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 TECHNIQUE: Non-IV contrast imaging of the abdomen and pelvis was performed using standard technique, scanning from just above the dome of the diaphragm to the symphysis pubis. Unenhanced imaging is limited for the evaluation of some intra-abdominal and pelvic pathology. MQ: CTAPWO_3 Contrast: IV: None CT Radiation dose: Integrated Dose-length product (DLP) for this visit = 263 mGy*cm. CT Dose Red uction Employed: Automated exposure control(AEC) and iterative recon COMPARISON: Ultrasound Dated 09/20/2024 and MRI dated 09/02/2024 RESULT: Abdomen / Pelvis: Liver: * Post OLT appearances again noted. * There is apparent interval luminal distention and hyperattenuation involving the main portal and right and left portal veins, concerning for acute portal venous thrombosis. * Persisting infiltrating hypodense area involving segments 8 and 4A (301/18). * No interval focal hepatic mass, allowingfor noncontrast study. Biliary: Gallbladder is surgically absent. No definite biliary dilatation noted. Spleen: No splenomegaly. Pancreas: Unremarkable. Adrenals: No mass. Kidneys: No calculus, hydronephrosis or finding to suggest a cyst or mass in the unenhanced kidney. GI Tract: The stomach is underdistended. Mildly distended small bowel loops, to a maximum of 2.9 cm (301/74), with normal caliber small bowel loops in the right lower quadrant. Gas-distended transverse colon. Scattered colonic diverticula. These appearances may represent partial small bowel obstruction. No evidence of extraluminal air. Lymph Nodes: No lymphadenopathy. Mesentery/peritoneum: Small to moderate volume ascites with generalized peritoneal stranding. Retroperitoneum: No mass. Vasculature: Suboptimally evaluated in the absence of IV contrast. Mild aortoiliac atherosclerotic changes, without aneurysm. Portal vein findings, as above. Pelvis: Moderate volume ascites. Urinary bladder, prostate and seminal vesicles are unremarkable. Bones/Soft Tissues: Stable loss of height of the T12 vertebral body with retropulsion. Interval anterior wedging of the T11 vertebral body, without significant retropulsion. Old rib fractures, with nonunion on the left (301/3). Osteopenia. Ascitic fluid is seen extending into a right inguinal hernia. Lower thorax: Moderate-sized bilateral pleural effusions, loculated on the right with bibasal atelectasis. Apparent loculated air within the right pleural cavity, partially visualized (301/1). This also appears to be present on the previous chest x-ray from 10/06/2024. Coronary calcifications. Trace pericardial fluid. Localizer images: No additional findings. IMPRESSION: 1. Appearances concerning for acute portal vein thrombosis in this patient with historyof recent OLT. Evaluation is suboptimal in the absence of IV contrast. Recommend correlation with ultrasound Doppler for confirmation. 2. Mildly distended small bowel loops with normal caliber small bowel in the right lower quadrant. Gas-distended transverse colon. Findings may represent low-grade,partial SBO. No extraluminal air noted. 3. Moderate volume ascites again seen. Moderate volume freeflowing left pleural effusion. 4. Apparent loculated right hydropneumothorax. Correlation with CT of the chest may be obtained for more definite evaluation. 5. Interval anterior wedging of the T11 vertebral body. COMMUNICATION: Communicated with DAVID CRUZ on 10/07/2024 3:54 PM via verbal communication. Stripper Apprentice: [facility] Transcribe Date/Time: Oct 07 2024 3:17P Dictated by : JOSE GUADALUPE MURPHY MD This examination was interpreted and the report reviewed and electronically signed by: JOSE GUADALUPE MURPHY MD on Oct 07 2024 4:01PM EST CT BRAIN WO IVCON Result Date: 10/07/2024 * * *Final Report* * * DATE OF EXAM: Oct 07 2024 3:00PM [facility] 0504 - CT BRAIN WO IVCON / PROCEDURE REASON: slurred speech * * * * Physician Interpretation * * * * EXAMINATION: CT BRAIN WO IVCON CLINICAL HISTORY: Slurred speech TECHNIQUE: Serial axial images without IV contrast were obtained from the vertex to the foramen magnum. MQ: CTBWO_3 CT Radiation dose: Integrated Dose-[place] Product (DLP) for this visit = 820 mGy*cm CT Dose Reduction Employed: Automated exposure control(AEC) and iterative recon COMPARISON: Head CT dated 08/27/2024, 08/23/2024 RESULT: Post-operative change: None. Acute change: No evidence of an acute infarct or other acute parenchymal process. Hemorrhage: No evidence of acute intracranial hemorrhage. ECASS hemorrhagic transformation score: Not Applicable Mass Lesion / Mass Effect: There is no evidence of an intracranial mass or extraaxial fluidcollection. No significant mass effect. Chronic change: Scattered patchy foci of low attenuation are present within the supratentorial white matter, a nonspecific finding that most commonly represents mild small vessel disease. Parenchyma:There is moderate generalized volume loss. Ventricles: Ventricular enlargement concordant with the degree of parenchymal volume loss. Paranasal sinuses and skull base: The visualized paranasal sinuses are grossly clear. The skull base and imaged soft tissues are unremarkable. Localizer images: No additional findings. IMPRESSION: NO CT EVIDENCE OF ACUTE INTRACRANIAL PROCESS. NO SIGNIFICANT INTERVAL CHANGE SINCE 08/27/2024. Stripper Apprentice: [facility] Transcribe Date/Time: Oct 07 2024 3:20P Dictated by : ROSAURA CERVANTES MD This examination was interpreted and the report reviewed and electronically signed by: ROSAURA CERVANTES MD on Oct 07 2024 3:22PM EST [id number]^ACN CT BRAIN WO IVCON Result Date: 10/07/2024 * * *Final Report* * * DATE OF EXAM: Oct 07 2024 3:00PM [facility] 0504 - CT BRAIN WO IVCON / PROCEDURE REASON: slurred speech * * * * Physician Interpretation * * * * EXAMINATION: CT BRAIN WO IVCON CLINICAL HISTORY: Slurred speech TECHNIQUE: Serial axial images without IV contrast were obtained from the vertex to the foramen magnum. MQ: CTBWO_3 CT Radiation dose: Integrated Dose-[place] Product (DLP) for this visit = 820 mGy*cm CT Dose Reduction Employed: Automated exposure control(AEC) and iterative recon COMPARISON: Head CT dated 08/27/2024, 08/23/2024 RESULT: Post-operative change: None. Acute change: No evidence of an acute infarct or other acute parenchymal process. Hemorrhage: No evidence of acute intracranial hemorrhage. ECASS hemorrhagic transformation score: Not Applicable Mass Lesion / Mass Effect: There is no evidence of an intracranial mass or extraaxial fluidcollection. No significant mass effect. Chronic change: Scattered patchy foci of low attenuation are present within the supratentorial white matter, a nonspecific finding that most commonly represents mild small vessel disease. Parenchyma:There is moderate generalized volume loss. Ventricles: Ventricular enlargement concordant with the degree of parenchymal volume loss. Paranasal sinuses and skull base: The visualized paranasal sinuses are grossly clear. The skull base and imaged soft tissues are unremarkable. Localizer images: No additional findings. IMPRESSION: NO CT EVIDENCE OF ACUTE INTRACRANIAL PROCESS. NO SIGNIFICANT INTERVAL CHANGE SINCE 08/27/2024. Stripper Apprentice: [facility] Transcribe Date/Time: Oct 07 2024 3:20P Dictated by : ROSAURA ECRVANTES MD This examination was interpreted and the report reviewed and electronically signed by: ROSAURA CERVANTES MD on Oct 07 2024 3:22PM EST US abdomen limited Result Date: 10/07/2024 * * *Final Report* * * DATE OF EXAM: Oct 07 2024 10:35AM [id number] - US ABDOMEN LTD / PROCEDURE REASON: asictes * * * * Physician Interpretation * * * * Clinical information: Ascites Ascites survey was performed. Images were obtained and stored in a permanent archive. Ascites pr esent within all four quadrants, with moderate fluid volume within the right lower quadrant. Smaller volume ascites within the right upper quadrant, left upper quadrant, and left lower quadrant. Impression: Ascites, largest volume within the right lower quadrant Stripper Apprentice: [facility] Transcribe Date/Time: Oct 07 2024 10:50A Dictated by : AMARILIS MACK MD This examination was interpreted and thereport reviewed and electronically signed by: AMARILIS MACK MD on Oct 07 2024 10:51AM EST XR ABDOMEN 1 VWS Result Date: 10/06/2024 * * *Final Report* * * DATE OF EXAM: Oct 06 2024 2:59PM [id number] - XR ABDOMEN 1V SUPINE / PROCEDURE REASON: SOB, VS WNL * * * * Physician Interpretation * * * * EXAMINATION: XR ABDOMEN 1V SUPINE, XR CHEST 1V FRONTAL CLINICAL HISTORY: Shortness of breath Comparison: Abdominal x-ray October 03, 2024 RESULT: Lines, tubes, and devices: None Lungs and pleura: Bilateral pleural effusions, right greater than left and right lower lobe consolidation versus atelectasis. Cardiomediastinal silhouette: The cardiomediastinal silhouette is within normal limits given positioning and technique. Bowel: Dilated loops of small bowel up to 4.7 cm. Air is seen in the right colon. Bones/Soft tissues: Surgical clips right upper quadrant of the abdomen. IMPRESSION: 1. Bilateral pleural effusions, right greater than left and right lower lobe consolidation versus atelectasis. 2. Nonspecific dilation of loops of small bowel up to 4.7 cm. This could represent ileus or obstruction. Stripper Apprentice: [facility] Transcribe Date/Time: Oct 06 2024 4:21P Dictatedby : THERESA ORANTES MD This examination was interpreted and the report reviewed and electronically signed by: THERESA ORANTES MD on Oct 06 2024 4:23PM EST XR CHEST 1 VWS Result Date: 10/06/2024 * * *Final Report* * * DATE OF EXAM: Oct 06 2024 2:59PM [id number] - XR CHEST 1V FRONTAL / PROCEDURE REASON: SOB, stable VS * * * * Physician Interpretation * * * * EXAMINATION: XR ABDOMEN 1V SUPINE, XR CHEST 1V FRONTAL CLINICAL HISTORY: Shortness of breath Comparison: Abdominalx-ray October 03, 2024 RESULT: Lines, tubes, and devices: None Lungs and pleura: Bilateral pleural effusions, right greater than left and right lower lobe consolidation versus atelectasis. Cardiomediastinal silhouette: The cardiomediastinal silhouette is within normal limits given positioning and technique. Bowel: Dilated loops of small bowel up to 4.7 cm. Air is seen in the right colon. Bones/Soft tissues: Surgical clips right upper quadrant of the abdomen. IMPRESSION: 1. Bilateral pleural effusions, right greater than left and right lower lobe consolidation versus atelectasis. 2. Nonspecific dilation of loops of small bowel up to 4.7 cm. This could represent ileus or obstruction. Stripper Apprentice: [facility] Transcribe Date/Time: Oct 06 2024 4:21P Dictatedby : THERESA ORANTES MD This examination was interpreted and the report reviewed and electronically signed by: THERESA ORANTES MD on Oct 06 2024 4:23PM EST XR ABDOMEN 1V SUPINE Result Date: 10/06/2024 * * *Final Report* * * DATE OF EXAM: Oct 06 2024 2:59PM [id number] - XR ABDOMEN 1V SUPINE / PROCEDURE REASON: SOB, VS WNL * * * * Physician Interpretation * * * * EXAMINATION: XR ABDOMEN 1V SUPINE, XR CHEST 1V FRONTAL CLINICAL HISTORY: Shortness of breath Comparison: Abdominal x-ray October 03, 2024 RESULT: Lines, tubes, and devices: None Lungs and pleura: Bilateral pleural effusions, right greater than left and right lower lobe consolidation versus atelectasis. Cardiomediastinal silhouette: The cardiomediastinal silhouette is within normal limits given positioning and technique. Bowel: Dilated loops of small bowel up to 4.7 cm. Air is seen in the right colon. Bones/Soft tissues: Surgical clips right upper quadrant of the abdomen. IMPRESSION: 1. Bilateral pleural effusions, right greater than left and right lower lobe consolidation versus atelectasis. 2. Nonspecific dilation of loops of small bowel up to 4.7 cm. This could represent ileus or obstruction. Stripper Apprentice: [facility] Transcribe Date/Time: Oct 06 2024 4:21P Dictatedby : THERESA ORANTES MD This examination was interpreted and the report reviewed and electronically signed by: THERESA ORANTES MD on Oct 06 2024 4:23PM EST US abdomen limited Result Date: 10/06/2024 * * *Final Report* * * DATE OF EXAM: Oct 06 2024 12:59PM [id number] - US ABDOMEN LTD / PROCEDURE REASON: distended abdomen/ascities survey * * * * Physician Interpretation * * * *ASCITES SURVEY INDICATION: Ascites COMPARISON: 09/20/2024 US liver vascular TECHNIQUE: Real-time grayscale ultrasound imaging of the 4 quadrants was performed. Images were obtained and stored in a permanent archive. RESULT: See impression. IMPRESSION: Small volume of intraperitoneal ascites. Stripper Apprentice: [employer] Transcribe Date/Time: Oct 06 2024 2:02P Dictated by : DANIEL LACY MD This examination was interpreted and the report reviewed and electronically signed by: DANIEL LACY MD on Oct 06 2024 2:03PM EST XR foot right 3+ vws Result Date: 10/05/2024 * * *Final Report* * * DATE OF EXAM: Oct 05 2024 2:07PM [id number] - XR FOOT 3V AP/LAT/OBL RT / PROCEDURE REASON: pain in big toe * * * * Physician Interpretation * * * * EXAMINATION: XR FOOT 3V AP/LAT/OBL RT CLINICAL HISTORY: pain in big toe TECHNOLOGIST PROVIDED HISTORY: pain in big toe TECHNIQUE: XR FOOT 3V AP/LAT/OBL RT Laterality: RIGHT Number of different views (projections): 3 M: XB_1 COMPARISON: None available. RESULT: No acute fracture or dislocation. Mild first MTPand scattered interphalangeal joint space narrowing. The joint space are otherwise maintained. Small plantar spur. Vascular calcifications. Diffuse soft tissue edema. IMPRESSION: No acute osseous abnormality. Soft tissue edema. Stripper Apprentice: [facility] Transcribe Date/Time: Oct 05 2024 3:09P Dictated by : ROLANDO BENAVIDES DO This examination was interpreted and the report reviewed and electronically signed by: WARREN EASLEY MD on Oct 05 2024 3:17PM EST XR FOOT GENERAL 3V AP/LAT/OBL RIGHT Result Date: 10/05/2024 * * *Final Report* * * DATE OF EXAM: Oct 05 2024 2:07PM [id number] - XR FOOT 3V AP/LAT/OBL RT / PROCEDURE REASON: pain in big toe * * * * Physician Interpretation * * * * EXAMINATION: XR FOOT 3V AP/LAT/OBL RT CLINICAL HISTORY: pain in big toe TECHNOLOGIST PROVIDED HISTORY: pain in big toe TECHNIQUE: XR FOOT 3V AP/LAT/OBL RT Laterality: RIGHT Number of different views (projections): 3 M: XB_1 COMPARISON: None available. RESULT: No acute fracture or dislocation. Mild first MTPand scattered interphalangeal joint space narrowing. The joint space are otherwise maintained. Small plantar spur. Vascular calcifications. Diffuse soft tissue edema. IMPRESSION: No acute osseous abnormality. Soft tissue edema. Stripper Apprentice: [facility] Transcribe Date/Time: Oct 05 2024 3:09P Dictated by : ROLANDO BENAVIDES DO This examination was interpreted and the report reviewed and electronically signed by: WARREN EASLEY MD on Oct 05 2024 3:17PM DAVID MALIK DO High complexity of service: time > 50 minutes involving therapy documentation review, face time,floor time, review of recent diagnostics tests with interpretation, interpretation of diagnostics tests to formulate new plans or observe current stability, coordination of care and/or family discussion. * Humera Knight PharmD - 10/31/2024 9:28 AM EDT Drug Regimen Review From admission through discharge, pharmacy will review the patient medication profile and ancillaryinformation. Pharmacy will document any clinically significant medication issues and notify the physician by midnight of the following calendar day. Upon admission to facility, pharmacy completed Medication Reconciliation and a Drug Regimen Review (DRR). Patient's medication history has been reviewed and no significant medication issues found. Initial Assessment Patient: Charles Blandon Attending: David Cruz Do [[id number]* Admission Date: [id number] Creatinine Clearance: CrCl cannot be calculated (--). Profile Review and Assessment Charles Blandon is a 69 y.o. year old male with history of: Patient Active Problem List Diagnosis Critical illness myopathy Medication History Current Facility-Administered Medications: acetaminophen (TYLENOL) 160 MG/5ML solution 500 mg, 500 mg, Oral, Q6H PRN, David Cruz DO alum & mag hydroxide-simeth enteral suspension 15 mL, 15 mL, Oral, Q4H PRN, David Cruz DO aspirin EC tablet 81 mg, 81 mg, Oral, Once a day, David Cruz DO, 81 mg at 10/31/24 0812 bisacodyl (DULCOLAX) suppository 10 mg, 10 mg, Rectal, Daily PRN, David Cruz DO DAPTOmycin (CUBICIN) 700 mg in sodium chloride 0.9 % IV syringe, 700 mg, Intravenous, Daily at 1800, David Cruz DO famotidine (PEPCID) tablet 20 mg, 20 mg, Oral, 2 times per day, David Cruz DO, 20 mg at 10/31/24 08 furosemide (LASIX) tablet 40 mg, 40 mg, Oral, Once a day, David Cruz DO, 40 mg at 10/31/24 08 heparin (porcine) injection 5,000 Units, 5,000 Units, Subcutaneous, Q12H CRISTIN, David Cruz DO,5,000 Units at 10/31/24 08 magnesium hydroxide (MILK OF MAGNESIA) 400 MG/5ML suspension 30 mL, 30 mL, Oral, Daily PRN, David Real DO magnesium oxide tablet 400 mg, 400 mg, Oral, 2 times per day, David Curz DO, 400 mg at 10/31/24 08 methocarbamol (ROBAXIN) tablet 750 mg, 750 mg, Oral, TID PRN, David Cruz DO, 750 mg at 10/31/24903 mirtazapine (REMERON) tablet 7.5 mg, 7.5 mg, Oral, Nightly, David Cruz DO, 7.5 mg at 10/30/242217 oxyCODONE (ROXICODONE) immediate release tablet 5 mg, 5 mg, Oral, Q6H PRN, David Cruz DO, 5 mg at 10/31/24903 polyethylene glycol (MIRALAX) packet 17 g, 17 g, Oral, Once a day, David Cruz DO senna (SENOKOT) tablet 2 tablet, 2 tablet, Oral, Nightly, David Cruz DO, 2 tablet at 10/30/242217 [START ON 11/01/2024] sulfamethoxazole-trimethoprim (BACTRIM) 800-160 MG per tablet double-strength 1 tablet, 1 tablet, Oral, Once per day on Monday, David Cruz DO tacrolimus (PROGRAF) capsule 5 mg, 5 mg, Oral, 2 times per day, David Cruz DO, 5 mg at 10/31/24 0553 ursodiol (ACTIGALL) capsule 300 mg, 300 mg, Oral, 3 times per day, David Cruz DO, 300 mg at 10/31/24 08 valGANciclovir (VALCYTE) tablet 900 mg, 900 mg, Oral, 2 times per day, David Cruz DO, 900 mgat 10/31/24 08 VTE prophylaxis: Heparin SC GI Prophylaxis: famotidine, protonix Antiinfective therapy reviewed: Anti-infectives (From admission, onward) Start Dose/Rate Route Frequency Ordered Stop 11/01/24 09 sulfamethoxazole-trimethoprim (BACTRIM) 800-160 MG per tablet double-strength 1 tablet 1 tablet Oral Once per day on Monday10/30/24200510/31/24 1800 DAPTOmycin (CUBICIN) 700 mg in sodium chloride 0.9 % IV syringe 700 mg over 5 Minutes Intravenous Daily- 1800 10/30/24200510/30/242099 valGANciclovir (VALCYTE) tablet 900 mg 900 mg Oral 2 times per day 10/30/242005 Medications currently requiring renal and/or hepatic adjustment: daptomycin, famotidine, valganciclovir Fall Risk Assessment Medications that increase fall risk: Cardiac (1): Antihypertensive/Diuretic (1): furosemide Antipsychotic (2): Hypnotic (2): Sedating antidepressant (2): mirtazapine Sedating antihistamine (2): Benzodiazepine (2): Narcotic analgesic (1-2): oxycodone Anticonvulsant (1): Hypoglycemic (1): Muscle relaxer (1): methocarbamol Other: tamsulosin, tacrolimus Fall Risk Point Total (Pharmacy): 8 JUN reviewed. Will continue to monitor patient. Submitted by: HUMERA KNIGHT PharmD documented in this encounter H&P Notes * David Cruz, - 10/31/2024 12:21 PM EDT Images from the original note were not included. Physical Medicine and Rehabilitation History and Physical Assessment Date of Admission: 10/30/2024 7:01 PM Patient Name: Charles Blandon Etiologic Diagnosis: Critical Illness Myopathy Rehab Impairment Code: Neurologic Conditions: 03.8 Neuromuscular Disorders Cc: Weakness History of Present Illness: 69 year old male with PMHx: alcohol-induced cirrhosis, c/b portal HTN, ascites, hepatic encephalopathy (HE), and large esophageal varices (EV), as well as hereditary hemorrhagic telangiectasia (HHT) and Tipton???s esophagus (status post basal cell carcinoma excision in 2017), was recently diagnosed with hepatocellular carcinoma (HCC).Patient presented to the ED on 08/23 due to a sudden increase inconfusion and worsening abdominal bloating. Patient previously evaluated for liver transplant but evaluation was closed due to suspected metastatic HCC in the setting of a thoracic spine lesion. S/p biopsy of T10 lesion on 08/06- path revealed Intraosseous hibernoma. Initially admitted to [facility]. On 08/27:t transferred to MICU for worsening HE, hyponatremia, and elevated ammonia levels. 09/04 Patient evaluated as a recipient for liver transplant and was re-listed for liver transplant . 09/08 Patient'sstatus improved and transferred to the [facility]. His MELD score was 26. Patient evaluated as a recipient for liver transplant. 09/09 s/p DCD OLT. 09/10 Pt was extubated. Post op c/b pleural effusion- rt pigtail cath placed, hyponatremia and acute post op pain 09/16 transferred to [facility]. 09/17 RLQ DANIEL drain #2 was removed. LVUS 09/20: Patent hepatic vasculature with appropriately directed flow. 09/[address] was removed. 09/22 Pt with N/V, abdomen distended. KUB- ileus Pt declined NGT. 09/23 Pt started on CLD 09/24 Diet advanced to full liquid. 09/25 Pt with ongoing bloating, passing flatus and having BMs. He denied N/V. 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 diet advanced to Fiber Controlled. Patient hem 7.0 transfused with 1 unit PRBCs. Patient discharge to IRF 09/29-. On 10/07: Patient transported for CT of abdomen. Noted to have an ileus and ascites. Patientwas sent out to ED for further evaluation and management. Admitted under liver transplant service. CT of brain was negative.10/08 Pt continued to have swelling in BLE and abdomen. Pt reported SOB and not using oxygen. Slurred speech had improved with c/o of increased diarrhea. CT chest shows Moderate-sized loculated right hydropneumothorax; the pneumothorax .Interval increase in volume of a low-attenuation, medium-sized left pleural effusion. LVUS shows patent liver vasculature, Hgb 7.3, with no signs of bleeding and lasix was changed to IV for fluid overload. Positive for Parainfluenza. Placed on 2L via NC due to continued SOB on 10/09. Stopped Acyclovir and started Valcyte. 10/10: lasix and albumin IV x1. Pulm consult for pleural effusions with continued diuresis. 10/14 Pt was found to have hydropneumothorax and is now s/p thoracentesis 320cc drained 10/15 Pt underwent ERCP for elevated ALP: Biliary tree swept, pus and debris found. Large stone proximal to stenosis could not be removed. Metal stent placed in CBD. 10/17: Pt with ascities, now s/p perihepatic collection aspiration and drainplacement. DANIEL drain x1 RUQ to bulb suction, planned to remain in place until next ERCP. 10/19: KUB showed mildly dilated colon, likely ileus. 10/21:Flomax discontinued. 10/22: neurosurgery consulted for known T7, T8 , T10 and T12 compression fx and worsening back pain no surgical intervention. 10/23: Per ID Biliary stent infection enetroccous IV Daptomycin 700mg Q24hr until 11/12. 10/24 MRI brain was negative for acute abnormality. 10/26: Hgb 7.1, received 1unit of PRBC. 10/29: PT with c/o abd distention; US Liver showed patent hepatic vasculature with appropriately directed flow. Mildly increased multiloculated ascities. per liver team not enough fluid to drain. 10/30: Pt cleared for discharge to ARF. No Known Allergies Meds: MAR reviewed and entered into the chart Past Medical and Surgical History: Alcohol-induced cirrhosis, c/b portal HTN Ascites, hepatic encephalopathy (HE) Large esophageal varices (EV) Hereditary hemorrhagic telangiectasia (HHT) and Tipton???s esophagus (status post Basal cell carcinoma excision in 2017) Family History: Unremarkable Social History Socioeconomic History Marital status: Tobacco Use Smoking status: Former Types: Cigarettes Smokeless tobacco: Never Substance and Sexual Activity Alcohol use: Not Currently Comment: 2-3 drinks every night Drug use: Not Currently Types: Marijuana Social Drivers of Health Financial Resource Strain: Low Risk (09/30/2024) Overall Financial Resource Strain (CARDIA) Difficulty of Paying Living Expenses: Not hard at all Food Insecurity: No Food Insecurity (10/08/2024) Received from [facility] Hunger Vital Sign Worried About Running Out of Food in the Last Year: Never true Ran Out of Food in the Last Year: Never true Transportation Needs: No Transportation Needs (10/30/2024) [facility] Transportation Source HRSN Transportation - Medical Needs: No HRSN Transportation - Daily Living: No Stress: No Stress Concern Present (10/30/2024) [place] [employer] - Occupational Stress Questionnaire Feeling of Stress : Not at all Social Connections: Moderately Isolated (09/30/2024) Social Connection and Isolation Panel [NHANES] Frequency of Communication with Friends and Family: More than three times a week Frequency of Social Gatherings with Friends and Family: More than three times a week Attends Hoahaoism Services: Never Active Member of Clubs or Organizations: No Attends Club or Organization Meetings: Never Marital Status: Domestic Abuse: Not At Risk (10/30/2024) Domestic Abuse Assessment HRSN Domestic Abuse - Safe in Relationships at Home: Yes HRSN Domestic Abuse - Physical Abuse: Denies HRSN Domestic Abuse - Verbal Abuse: Denies Housing Stability: Unknown (10/08/2024) Received from [facility] Housing Stability Vital Sign Unable to Pay for Housing in the Last Year: No Number of Times Moved in the Last Year: 0 Patient lives at home with spouse/family in a two level home with 3 stairs to enter. Prior Level of Function: Independent Current Level of Functional: Grooming Min A, UB Dressing Min A, LB Dressing Mod A, Bed Mobility Meena, Transfers Min A, Toileting Min A, Gait Min A Review of System: 14 Systems reviewed with the patient are negative unless stated above in the HPI. Exam: Vital signs: BP 130/82 Pulse 95 Temp 97.9 ??F (36.6 ??C) (Oral) Resp 18 Ht 5' 9 (1.753 m) Wt 159 lb (72.1 kg) SpO2 95% BMI 23.48 kg/m?? General: NAD Neck: No TTP, ROM intact Skin: refer to RN skin assessment and media tab for any wound images Pulmonary: No audible wheezing or stridor CV: No audible murmurs, no C/C/E, pulses intact Abdomen: No G/R/R Extremities: Tone is normal in all extremities, reflexes are symmetric in all extremities Manual Motor Muscle Testing: LUE: 4/5, RUE: 4/5, RLE: 4/5, LLE: 4/5 Pinprick Sensation: Symmetric and intact in all dermatomes Neurologic: CNII: visual michelle full to confrontation CNIII, IV, : full extraoccular movements without nystagmus CN V: masseter 5/5 CN VII: Facial muscles symmetric and strong CN VIII: Hears finger rub well bilaterally CN IX: Gag Reflex Not Examined CN X: Palate elevates symmetrically CN XI: Full strength shoulder shrug bilaterally CN XII: Tongue protrusion full and midline Cognitition: A&O x 3, Follows all command, Repetition intact Labs and Imaging results reviewed from transferring facility. ASSESSMENT: Critical Illness Myopathy Metastatic HCC S/p DCD OLT, 09/09 Biliary stricture of transplanted liver Acute blood loss Anemia, PRBC 09/27 (Crossmatch T and B cell weak positive ), 10/26 Parainfluenza pneumonia infection Fluid overload VRE Biliary stent infection Ascites s/p perihepatic collection aspiration and drain placement, 10/17. 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 Functional Bowel Incontinence Protein Calorie Malnutrition Gait Abnormality Ambulatory Dysfunction ADL Dysfunction Debility Cognitive Impairment Constipation Coordination Deficit Spasticity Skin Wound Neuropathic Pain Chronic Pain Balance Deficits PLAN: IM, ID, Nephro, Pulm, Cardio Consult Psychologist consultation and evaluation, Melatonin, Trazodone; remeron Biweekly immunosuppression labs, viral surveillance titre's weekly and biweekly IDT with liver transplant team ATB Daptomycin IV to complete 11/12 Prophylaxis: Acyclovir, Bactrim, Nystatin swish/swallow completes 09/30 Immunosuppression: prograf bid, cellcept bid, prednisone completed 09/30 Midodrine tid to keep BP normal Bowel Program: Miralax, Colace, Senna, Dulcolax Glycemic Control:Lispro Bladder Retraining and eval for high PVR and IC if >300, Flomax Nutritional Support - Adult Diet Regular; 7 Regular (Regular Texture); 0 Thin (All Liquids) GI prophylaxis: Protonix Fall Prevention Isolation: No active isolations Pain management: Acetaminophen, Oxycodone, Lidocaine, Robaxin DVT prophylaxis: Lovenox Rehab/ Functional Issues: Potential barriers to progress- complex medical issues, significant impairments. Rehab plan- PT/OT for ADLs, transfer, and gait training, ROM , strengthening and balance exercises,assistive device prescription. ST for cognition, language or swallowing impairments as needed. Recreational therapy to address needs of disability as needed. 24 hour Rehab Nursing for skin care, bowel and bladder care, administration of medication, patient and successful patient and caregiver education. Case management for care coordination, overcome home architectural barriers and safe dischargeplanning.Therapy schedule will be 3 hrs/day x 5-6 days/week or 15 hrs/7 days in special situations.Weekly Interdisciplinary Rehab Team Meeting to address barriers to discharge and coordination of care. Post Admission Assessment: At the current time, this inpatient hospital rehabilitation stay is medically necessary to achieve important health and functional goals, and no less intensive setting is appropriate as an alternative. The patient remains appropriate for IRF without significant discrepancies from Pre-admission screening. I have had the opportunity to examine the patient and have reviewed the pre-admission assessment and find it consistent with my examination and evaluation of the patient. I confirm that this patient requires admission and treatment in this inpatient rehabilitation hospital, needs intense interdisciplinary rehabilitation care under my direction and is expected to achieve meaningful goals within a reasonable period of time that are consistent with the planned discharge disposition. We will provide comprehensive inpatient rehabilitation, which may include PT, OT, and SURVEY RODMAN and supportive services to improve functional outcome of impaired mobility, ADLs, transfers, and self-care. The patient has a good prognosis for benefiting from this program and returning to home and community. DISABILITY: dressing, grooming, feeding, transfers, locomotion, bowel / bladder management, communication, cognition ESTIMATED LENGTH OF REHABILITATION STAY: 14 days EXPECTED FUNCTIONAL GOALS AT DISCHARGE FROM REHABILITATION: Eating: Modified Independent, Grooming: Modified Independent, Bathing: Modified Independent, Dressing: Modified Independent, Toileting: Modified Independent, Transfers: Modified Independent, Ambulation: Modified Independent, Distance: 150 feet DAVID CRUZ DO Over 75 minutes involving OSH chart review, medication reconciliation, orders CPOE, documentation review, independent interpretations of tests, face time, floor time, review of recent diagnostics tests with interpretation, interpretation of diagnostics tests to formulate new plans or observe current stability, coordination of care and/or family discussion of management of care. On July 20, 2022, the Centers for Medicare & Medicaid Services (CMS) finalized its Policy and Technical Changes to the Medicare Advantage and Medicare Prescription Drug Benefit Program for () 2023. The final rule increases oversight of Medicare Advantage (MA) plans and seeks to better align MA coverage with Traditional Medicare. The provisions in the final rule are applicable to coverage decisions beginning on 2023. Require MA plans to comply with national coverage determinations (NCD), local coverage determinations (LCD), and general coverage and benefit conditions included in Traditional Medicare laws. These Medicare Advantage statutes and regulations are unambiguous. All MA plans must provide enrolled beneficiaries with coverage of all services available under traditional [id number] Medicare (i.e., Part A and Part B Medicare); Prohibit MA plans from limiting or denying coverage for a Medicare-covered service based on their own internal or proprietary criteria (e.g., [employer], [place]) in a way that differs from requirements under Traditional Medicare; Limit MA plans' ability to apply [id number] restrictions not found in Traditional Medicare. AnMA plan can only deny coverage based on the site of care if the patient does not meet the established Traditional Medicare coverage criteria required for that setting. This precludes an MA plan from denying coverage (e.g., LTCH) based on its preference for a lower-cost or lower intensity care setting (e.g., SNF); Upon these applicable points in the Medical Advantage Final Ruling, this patient meets ALL CONDITIONS for APPROVAL OF ADMISSION, as this patient would have immediate and unfettered access to this necessary level of care under Traditional Medicare coverage. SUSPECTED CASES OF VIOLATION OF FEDERAL RULES MAY BE REPORTED TO [facility]. documented in this encounter Consult Notes * Cali Irving MD - 11/01/2024 6:00 PM EDTAssociated Order(s): IP CONSULT TO CARDIOLOGY Cardiology 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 H&P Patient Identification: Charles Blandon : 1955 Admit Date: 10/30/2024 Attending Provider: David Cruz DO Primary Care Physician: RUSTY DELGADO Admitting Diagnosis: Critical illness myopathy [G72.81] Reason for Consultation: patient co-management. Assessment/ Plan: Z94.1 DBD OLT A41.9 VRE on 3 weeks antibiotics, valcyte for CMV, daptomycin for VRE HPI: Charles Blandon is a 69 y.o. male who presents for rehab s/p liver transplant, US normal flow, biliary sphintertomy and stent to CBD, VRE on daptomycin, valcyte for CMV, R sided locumated pleural effusion, s/p L thoracentesis, 320 ml. Known to me from recent admission here N183 CKD stage III F10.0, K72.80 etoh cirrhosis Z94.1 DBD OLT N18.7 RENATE I50.92 echo EF 55 1 _ edema on lasix MWF HPI: Charles Blandon is a 69 y.o. male who presents for rehab s/p DBD OLT, on acyclovir bactrim tacrolimu, prednisone. Elevated BS on steroids treated by endocrine now on humalog not on treatement at home,presented with alcohol inudced cirrhosis, portal HTN, ascites, hepatic encephalopathy, esophageal va rices, hereditary telangiectasia and barets esophagus, basal cell excision 2017, recent hepatocellular carcinoma. Previously denied transplant suspected T10 mets from HCC but biopsy negative. R pleural efusion 09/10. Encephalopathy and ascites preoperative. Preop cath and diffuse CAD but a lession sign in circumflex FFR 0.79 after OM2 treated managed medically. Echocardiogram: Impression CONCLUSIONS: - Technically difficult exam due to suboptimal positioning and body habitus. - Exam indication: Shortness of Breath - Left ventricular systolic function is normal. EF = 55 ?? 5% (visual est.) - The right ventricle is normal in size. Right ventricular systolic function is normal. - Exam was compared with the prior echocardiographic exam performed on 05/01/2024. no change, except for plerual effusion not seen today Preop [facility] Charles Blandon is a 68 year old male with history of alcohol-related cirrhosis with portal hypertension, ascites, esophageal varices, GERD, Tipton's esophagus, gout, hyperlipidemia and hypertension who presents for left heart catheterization for preoperative planning of liver transplant. Access Point Sheath Size Hemostasis Method Right Radial Artery 5F Short Radial TR band + + DIAGNOSTIC FINDINGS + + Coronary Anatomy: Right Dominant Injection Site(s): Coronary Artery and Aorta LMT: The LMT has mild luminal irregularities. Additional Comment: The LMT is a large caliber segment that supplies the LAD and LCx. LAD: The mid LAD is narrowed 40 % - focal disease. The 2nd diagonal - moderate diffuse disease. Additional Comment: The LAD supplies two diagonal branches before reaching toward the apex. There is a 40% stenosis in the mid LAD between the two diagonal branches. The second diagonal, which is small caliber, has moderate diffuse disease. Cathworks FFR across LAD was not significant 0.95. There is mild diffuse disease elsewhere in the vessel. LCX: The proximal circumflex is narrowed 40 % - focal disease. The distal circumflex is narrowed 70 % - focal disease. Additional Comment: The LCx is a large caliber vessel that supplies two obtuse marginal branches (the first of which is very small caliber) before tapering. There is a 40% stenosis in the proximal LCx, a 70% stenosis of the continuation of the LCx after the OM2, and mild diffuse disease elsewhere. Of note, this LCx continuation is small caliber. RAMUS: Ramus Status: Not Applicable. RCA: The proximal RCA is narrowed 30 % - focal disease. The right posterior descending artery RCA is narrowed 70 % - focal disease. Additional Comment: The RCA is a large caliber, dominant vessel that supplies two RV marginal branches, a PDA then continues in the AV groove to supply a few small caliber PL branches. There is a 70% stenosis of the PDA that is positive by cathworks (FFR 0.79). Proximal RCA has 30% disease. mpression: 1. Right dominant coronary system 2. Obstructive coronary artery disease of the distal LCx (following takeoff of the OM2) and the rPDA. Recommended Treatment: Further discussion with transplant team. Plan: - Ongoing workup for liver transplantation - Multidisciplinary discussion regarding the management of obstructive coronary artery disease. - Optimal medical management of coronary artery disease per primary senior investment analyst. Discharge Summary 69 yo male with etoh cirrhosis c/b HCC s/p DCD OLT w placement of R chest drain on 09/09/[address] Nava . Pt dc to [facility] 09/29 and returned for admission on 10/07 w increased Shortness of Breath and diarrhea. Pulmonary consulted and did not recommend thoracentesis but diuresis. Zosyn started for PNA coverage. RVP (+) parainfluenza and supportive care given. LV US (10/08) patent hepatic vasculature w appropriate directed flow. CBD wall thickening containing debris. Pt w notable rising alk phos through out hospital stay w decision to proceed w ERCP. ERCP (10/15) filling defects c/w stones and sludge.Single moderate biliary stricture found in common hepatic duct. Bile leak found eminating from the donor cystic duct remnant, appeared contained. Biliary tree swept and pus and debris found. Large stone proximal to the stenosis could not be removed. CT abd/pelvis w IV contrast (10/16) 5.2cm GB fossa collection, likely contained bile leak. Stable to slightly decreased size of geographic low attenuation in the R hepatic lobe, possibly inflammatory or evolving infarct. Patient underwent imaging guided abdominal drain placement into collection on 10/17. 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 ID consulted and Daptomycin was started. Patient had a repeat CT of the abdomen on 10/18 due to abdominal pain. It showed moderate ascites, left pleural effusion, stable right hydropneumothorax, and abdominal drain catheter with decompression of the gallbladder fossa collection. Patient with abdominal pain/distension with nausea and vomiting. Xray of the abdomen on 10/24 showedgastric gaseous distension and scattered gas filled nondilated small bowel and colon. An NG tube was placed on 10/24. He had a CT of the abdomen on 10/24 which showed decrease of the gallbladder fossa collection, moderate ascites, new peritoneal thickening/enhancement, and percutaneous drain. Patientwith improved symptoms so NG tube was removed on 10/25/24. He had a PICC line placed on 10/24/24 to continue antibiotic treatment until 11/12/24. Patient had developed chest pain with shortness of breath on 10/14. EKG on 10/14 showed normal sinus rhythm, HsTNT with no significant increase, and ECHO on 10/17 showed an EF of 55% with normal LV function. His chest pain and breathing improved. Patient had a thoracentesis on 10/14 with cultures being negative for infection and cytology was negative. Patient was given furosemide to manage edema whichimproved. Patient with history of T11 and T12 compression fractures. He reported increased back pain so consult with neurosurgery who recommended no further imaging and patient was currently not an appropriatesurgical candidate. Patient with dizziness and vertigo. MRI brain completed on 10/24 which showed noevidence of acute intracranial abnormality and sequela of chronic small vessel disease. Results of MRI brain were discussed with neurology who recommended outpatient followup with Vestibular Neurologist. 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 Consult with PM&R who recommended acute rehab. Patient was stable for discharge on 10/30/24. Past Medical History: Past Medical History: Diagnosis Date Cancer Confusion Dizziness Hypertension Tremor Surgical History: Past Surgical History: Procedure Laterality Date ABDOMINAL SURGERY Allergies: Patient has no known allergies. Medications Prior to Admission: No medications prior to admission. Current Medications: Current Facility-Administered Medications: acetaminophen (TYLENOL) 160 MG/5ML solution 500 mg, 500 mg, Oral, Q6H PRN, David Cruz DO alum & mag hydroxide-simeth enteral suspension 15 mL, 15 mL, Oral, Q4H PRN, David Cruz DO aspirin EC tablet 81 mg, 81 mg, Oral, Once a day, David Cruz DO, 81 mg at 11/01/24 0749 bisacodyl (DULCOLAX) suppository 10 mg, 10 mg, Rectal, Daily PRN, David Cruz DO DAPTOmycin (CUBICIN) 700 mg in sodium chloride 0.9 % 114 mL IVPB, 700 mg, Intravenous, Q24H, David Cruz DO, 700 mg at 11/01/24 1338 epoetin omar (PROCRIT) injection 15,000 Units, 15,000 Units, Subcutaneous, Once per day on Monday, Chelsea Cunningham MD, 15,000 Units at 11/01/24 0750 famotidine (PEPCID) tablet 20 mg, 20 mg, Oral, 2 times per day, David Cruz DO, 20 mg at 11/01/24 0749 furosemide (LASIX) tablet 40 mg, 40 mg, Oral, Once a day, David Cruz DO, 40 mg at 11/01/24 0748 heparin (porcine) injection 5,000 Units, 5,000 Units, Subcutaneous, Q12H CRISTIN, David Cruz DO,5,000 Units at 11/01/24 0750 magnesium hydroxide (MILK OF MAGNESIA) 400 MG/5ML suspension 30 mL, 30 mL, Oral, Daily PRN, David Real DO magnesium oxide tablet 800 mg, 800 mg, Oral, 2 times per day, Suze Jenkins MD, 800 mg at 749 methocarbamol (ROBAXIN) tablet 750 mg, 750 mg, Oral, TID PRN, David Cruz DO, 750 mg at 11/01/24908 mirtazapine (REMERON) tablet 7.5 mg, 7.5 mg, Oral, Nightly, David Cruz DO, 7.5 mg at 10/31/242131 [START ON 11/02/2024] multivitamin w/ minerals (THERA M PLUS) tablet/capsule 1 tablet, 1 tablet, Oral, Once a day, David Cruz DO oxyCODONE (ROXICODONE) immediate release tablet 10 mg, 10 mg, Oral, Q6H PRN, Suze Jenkins MD, 10 mg at 11/01/24908 pantoprazole (PROTONIX) EC/DR tablet 40 mg, 40 mg, Oral, BID AC, David Cruz DO, 40 mg at 11/01/241529 polyethylene glycol (MIRALAX) packet 17 g, 17 g, Oral, Once a day, David Cruz DO senna (SENOKOT) tablet 2 tablet, 2 tablet, Oral, Nightly, David Cruz DO, 2 tablet at 10/31/242132 sulfamethoxazole-trimethoprim (BACTRIM) 800-160 MG per tablet double-strength 1 tablet, 1 tablet, Oral, Once per day on Monday, David Cruz DO, 1 tablet at 11/01/24918 tacrolimus (PROGRAF) capsule 6 mg, 6 mg, Oral, 2 times per day, Suze Jenkins MD, 6 mg at [id number] tamsulosin (FLOMAX) 24 hr capsule 0.4 mg, 0.4 mg, Oral, Nightly, David Cruz DO, 0.4 mg at 10/31/242132 traZODone (DESYREL) tablet 50 mg, 50 mg, Oral, Nightly, David Cruz DO, 50 mg at 07/17/25 2133 ursodiol (ACTIGALL) capsule 300 mg, 300 mg, Oral, 3 times per day, David Cruz, DO, 300 mg at 11/01/24 1415 valGANciclovir (VALCYTE) tablet 900 mg, 900 mg, Oral, 2 times per day, David Cruz DO, 900 mgat 11/01/24 0748 Social History: Social History Socioeconomic History Marital status: Tobacco Use Smoking status: Former Types: Cigarettes Smokeless tobacco: Never Substance and Sexual Activity Alcohol use: Not Currently Comment: 2-3 drinks every night Drug use: Not Currently Types: Marijuana Social Drivers of Health Financial Resource Strain: Low Risk (10/31/2024) Overall Financial Resource Strain (CARDIA) Difficulty of Paying Living Expenses: Not hard at all Food Insecurity: No Food Insecurity (10/31/2024) Hunger Vital Sign Worried About Running Out of Food in the Last Year: Never true Ran Out of Food in the Last Year: Never true Transportation Needs: No Transportation Needs (10/30/2024) [facility] Transportation Source HRSN Transportation - Medical Needs: No HRSN Transportation - Daily Living: No Stress: No Stress Concern Present (10/30/2024) [place] [employer] - Occupational Stress Questionnaire Feeling of Stress : Not at all Social Connections: Moderately Isolated (10/31/2024) Social Connection and Isolation Panel [NHANES] Frequency of Communication with Friends and Family: More than three times a week Frequency of Social Gatherings with Friends and Family: More than three times a week Attends Hoahaoism Services: Never Active Member of Clubs or Organizations: No Attends Club or Organization Meetings: Never Marital Status: Domestic Abuse: Not At Risk (10/30/2024) Domestic Abuse Assessment HRSN Domestic Abuse - Safe in Relationships at Home: Yes HRSN Domestic Abuse - Physical Abuse: Denies HRSN Domestic Abuse - Verbal Abuse: Denies Housing Stability: Low Risk (10/31/2024) Housing Stability Vital Sign Unable to Pay for Housing in the Last Year: No Number of Times Moved in the Last Year: 0 Homeless in the Last Year: No Family History: No family history on file. Review of Systems: Pertinent items are noted in HPI. Vitals: Vitals: 10/31/24 2000 11/01/24 0400 11/01/24 0722 11/01/24 1058 BP: (!) 146/93 149/83 112/72 Pulse: 97 69 71 Resp: 19 Temp: 98.7 ??F (37.1 ??C) 97.2 ??F (36.2 ??C) TempSrc: Oral Oral SpO2: 92% 94% 94% Weight: 160 lb 6.4 oz (72.8 kg) Height: Weight: Weight: 160 lb 6.4 oz (72.8 kg) Wt Readings from Last 3 Encounters: 11/01/24 160 lb 6.4 oz (72.8 kg) 10/07/24 164 lb 4.8 oz (74.5 kg) Physical Exam: BP 112/72 Pulse 71 Temp 97.2 ??F (36.2 ??C) (Oral) Resp 17 Ht 5' 9 (1.753 m) Wt 160 lb 6.4 oz (72.8 kg) SpO2 94% BMI 23.69 kg/m?? General Appearance: Alert, cooperative, no distress, appears stated age Head: Normocephalic, without obvious abnormality, atraumatic Eyes: PERRL, conjunctiva/corneas clear, EOM's intact, fundi benign, both eyes Ears: Normal TM's and external ear canals, both ears Nose: Nares normal, septum midline, mucosa normal, no drainage or sinus tenderness Throat: Lips, mucosa, and tongue normal; teeth and gums normal Neck: Supple, symmetrical, trachea midline, no adenopathy; thyroid: No enlargement/tenderness/nodules; no carotid bruit or JVD Back: Symmetric, no curvature, ROM normal, no CVA tenderness Lungs: Clear to auscultation bilaterally, respirations unlabored Chest wall: No tenderness or deformity Heart: Regular rate and rhythm, S1 and S2 normal, no murmur, rub or gallop Abdomen: Soft, non-tender, bowel sounds active all four quadrants, no masses, no organomegaly, s/p DBD OLT Genitalia: Normal male without lesion, discharge or tenderness Rectal: Normal tone, normal prostate, no masses or tenderness; guaiac negative stool Extremities: Extremities normal, atraumatic, no cyanosis or edema Pulses: 2+ and symmetric all extremities Skin: Skin color, texture, turgor normal, no rashes or lesions Lymph nodes: Cervical, supraclavicular, and axillary nodes normal Neurologic: CNII-XII intact. Normal strength, sensation and reflexes throughout Lab Results: CBC: Recent Labs Lab Units 11/01/24 0501 WBC k/uL 4.38 RBC AUTO m/uL 2.75* HEMOGLOBIN g/dL 8.2* HEMATOCRIT % 26.3* MCV fL 95.6 PLATELETS AUTO k/uL 565* CBC with Differential: Recent Labs Lab Units 11/01/24 0501 WBC k/uL 4.38 RBC AUTO m/uL 2.75* HEMOGLOBIN g/dL 8.2* HEMATOCRIT % 26.3* PLATELETS AUTO k/uL 565* MCV fL 95.6 MCH pg 29.8 MCHC g/dL 31.2 [ H/H: Recent Labs Lab Units 11/01/24 0501 HEMOGLOBIN g/dL 8.2* HEMATOCRIT % 26.3* BMP: Recent Labs Lab Units 11/01/24 0501 SODIUM mmol/L 137 POTASSIUM mmol/L 5.0 CHLORIDE mmol/L 100 CO2 mmol/L 26 BUN mg/dL 7* CREATININE mg/dL 0.88 GLUCOSE mg/dL 101* CALCIUM mg/dL 8.5 ANION GAP mmol/L 11 MG/PHOS: Recent Labs Lab Units 11/01/24 0501 MAGNESIUM mg/dL 1.8 PHOSPHORUS mg/dL 4.2 CKMB: Invalid input(s): CKMB;2 PT/INR: PTT: BNP: Troponin: Last 3 Troponin: Invalid input(s): TROPONINI;3 U/A: Invalid input(s): PROTUA , EPITH , BACTERIA CMP: Recent Labs Lab Units 11/01/24 0501 10/31/24 0452 SODIUM mmol/L 137 136 POTASSIUM mmol/L 5.0 5.1 CHLORIDE mmol/L 100 102 CO2 mmol/L 26 22 BUN mg/dL 7* 8* CREATININE mg/dL 0.88 0.82 GLUCOSE mg/dL 101* 82 PROTEIN TOTAL g/dL -- 5.0* CALCIUM mg/dL 8.5 8.1* ALBUMIN g/dL 2.6* 2.4* BILIRUBIN, TOTAL mg/dL -- 0.3 ALKALINE PHOSPHATASE U/L -- 158* ALT U/L -- 8* AST U/L -- 16 ANION GAP mmol/L 11 12 LFT's: Recent Labs Lab Units 10/31/24 0452 PROTEIN TOTAL g/dL 5.0* ALKALINE PHOSPHATASE U/L 158* AST U/L 16 ALT U/L 8* Calcium: Recent Labs Lab Units 11/01/24 0501 CALCIUM mg/dL 8.5 Ionized Calcium: Invalid input(s): IONCA ABG: Invalid input(s): BDEF HgBA1c: Lipid Panel: Invalid input(s): LDLCALCU , CHOLHDLR TSH: Fibrinogen: Glucose Last 3 Days: Imaging: I have reviewed all lmaging and testing from the last 24 hrs CALI IRVING MD 11/01/24 6:01 PM EDT * MARYELLEN Gorman - 11/01/2024 11:10 AM EDTAssociated Order(s): IP CONSULT TO NUTRITION SERVICES Nutrition Initial Assessment Note Date: 11/01/2024 Time: 11:10 AM EDT Patient Name: Charles Blandon Date of : 1955 Sex: Male Room/Bed: [facility] Principal Problem: critical illness myopathy Admit Date/Time: 10/30/2024 7:01 PM Relevant Medications: Scheduled Meds: Scheduled/Continuous Medications Scheduled aspirin EC tablet 81 mg 81 mg, PO, Once a day DAPTOmycin (CUBICIN) 700 mg in sodium chloride 0.9 % 114 mL IVPB 700 mg, IV, Q24H epoetin omar (PROCRIT) injection 15,000 Units 15,000 Units, SC, 3x weekly famotidine (PEPCID) tablet 20 mg 20 mg, PO, BID furosemide (LASIX) tablet 40 mg 40 mg, PO, Once a day heparin (porcine) injection 5,000 Units 5,000 Units, SC, Q12H CRISTIN magnesium oxide tablet 800 mg 800 mg, PO, BID mirtazapine (REMERON) tablet 7.5 mg 7.5 mg, PO, Nightly pantoprazole (PROTONIX) EC/DR tablet 40 mg 40 mg, PO, BID AC polyethylene glycol (MIRALAX) packet 17 g 17 g, PO, Once a day senna (SENOKOT) tablet 2 tablet 2 tablet, PO, Nightly sulfamethoxazole-trimethoprim (BACTRIM) 800-160 MG per tablet double-strength 1 tablet 1 tablet, PO, 3x weekly tacrolimus (PROGRAF) capsule 5 mg 5 mg, PO, BID tamsulosin (FLOMAX) 24 hr capsule 0.4 mg 0.4 mg, PO, Nightly traZODone (DESYREL) tablet 50 mg 50 mg, PO, Nightly ursodiol (ACTIGALL) capsule 300 mg 300 mg, PO, TID valGANciclovir (VALCYTE) tablet 900 mg 900 mg, PO, BID Continuous Infusions: PRN Meds:. acetaminophen Alum & Mag Hydroxide-Simeth bisacodyl magnesium hydroxide methocarbamol oxyCODONE Relevant Labs: CBC with Differential: Recent Labs Lab Units 11/01/24 0501 WBC k/uL 4.38 RBC AUTO m/uL 2.75* HEMOGLOBIN g/dL 8.2* HEMATOCRIT % 26.3* PLATELETS AUTO k/uL 565* MCV fL 95.6 MCH pg 29.8 MCHC g/dL 31.2 [ MG/PHOS: Recent Labs Lab Units 11/01/24 0501 MAGNESIUM mg/dL 1.8 PHOSPHORUS mg/dL 4.2 CMP: Recent Labs Lab Units 11/01/24 0501 10/31/24 0452 SODIUM mmol/L 137 136 POTASSIUM mmol/L 5.0 5.1 CHLORIDE mmol/L 100 102 CO2 mmol/L 26 22 BUN mg/dL 7* 8* CREATININE mg/dL 0.88 0.82 GLUCOSE mg/dL 101* 82 PROTEIN TOTAL g/dL -- 5.0* CALCIUM mg/dL 8.5 8.1* ALBUMIN g/dL 2.6* 2.4* BILIRUBIN, TOTAL mg/dL -- 0.3 ALKALINE PHOSPHATASE U/L -- 158* ALT U/L -- 8* AST U/L -- 16 ANION GAP mmol/L 11 12 Weight: Admit Weight: 159 lb (72.1 kg) Latest Weight: 160 lb 6.4 oz (72.8 kg) (11/01/24 0400) Weight Comment: BMI 23.7 Diet Order: Diet Orders (From admission, onward) Start Ordered 10/30/242006 Adult Diet Regular; 7 Regular (Regular Texture); 0 Thin (All Liquids) Diet effective now End/Expires: Until Specified References: IDDSI Website Question Answer Comment Diet Type: Regular Diet Texture: 7 Regular (Regular Texture) Liquid Consistency: 0 Thin (All Liquids) 10/30/242005 Prior to Admission Food/Nutrient Intake: Nutrition Intake History Poor Oral Intake for Four or More Days Prior to Admission: Yes (Comment) Difficulty Chewing or Swallowing: No Nausea/Vomiting/Diarrhea/Constipation: Diarrhea (hx loose stools) Mealtime/Eating Behaviors: 2 meals/d Diet History/Previous Diets: No restrictions Vitamin Intake: Calcium, Magnesium, Multivitamin Other Nutrition Intake History: ProMax protein bars, Premier Protein Eating Environment Location: Home Caregiver/Supervisor Properties: Has companionship while eating Eats alone: No Factors Affecting Access to Food and Food / Nutrition Related Supplies Food Preparation: spouse, Fabiana Physical Activity History Physical Activity: golf Change in Functional Status: Yes (Comment) Current Food/Nutrient Intake Nutrition Intake Current Average Meal Intake (%): 50 (range 0-100%) Difficulty Chewing or Swallowing: No Mealtime/Eating Behaviors: feeds self Tolerance: Fair (Comment) Other Information/Communication: Po intake has improved since last admission Assistance with Feeding: Assist with Setup Anthropometrics: Height and Weight Height: 5' 9 (175.3 cm) Weight: 160 lb 6.4 oz (72.8 kg) Historical Weight Trend (Time Frame): UBW 172# (from last admission) Weight Method: Bed scale BSA (Calculated - sq m): 1.87 sq meters BMI (Calculated): 23.7 Weight in (lb) to have BMI = 25: 168.9 Nutrition Focused Physical Findings: Head to Toe Physical Assessment Physical Assessment: Yes Overall Appearance: cachectic, fatigued Scalp/Hair: WDL [place] (Temporalis muscle): Depression Orbital Region: Depressions Eyes: WDL Nose: WDL Lips: WDL Mouth/Mucose: WDL Tongue: WDL Teeth: WDL Gums: WDL Neck: Distended neck veins Collarbone Region: Some protrusion (men) Shoulders Region: Shoulder to arm joint looks square Scapular Bone Region: Depressions between shoulders Thoracic and Lumbar Region: (ascites) Upper Arm Region: Some depth pinch but not ample Skin: (chevron, DTPI- coccyx healed since last admission) Hand Region: Depressed area between thumb-forefinger Nails: WDL Patellar Region: Little sign of muscle around knee Anterior Thigh Region: Mild depression on inner thigh Posterior Calf Region: Not well developed Clinical Characteristics of Malnutrition: Clinical Characteristics of Malnutrition Malnutrition Context: Acute Illness or Injury Energy Intake: <75% of estimates energy requirement for >7 days (moderate) Interpretation of weight loss from baseline: >5% over 1 month (severe) Body Fat Loss: Moderate (severe) Muscle Mass Loss: Moderate (severe) Fluid Accumulation: Moderate to Severe (severe) Findings: Unspecified severe protein calorie malnutrition Nutrition Concerns: Nutrition Related Concerns: Poor Appetite; Other; Loose Bowel Movement (11/01/24 1101) Diarrhea Concerns/ # of loose stools: hx of loose stools and also associated with this illness (11/01/24 110) Other Concerns: OLT 09/09 (11/01/24 110) Nutrition Needs: Total Energy Estimated Needs: 2,190-2,555 laura/d Method for Estimating Needs: 30-35 laura/kg Total Protein Estimated Needs: 95-124g/d Method for Estimating Needs: 1.3-1.7g/kg Total Fluid Estimated Needs: 2,190-2,555ml/d Method for Estimating Needs: 1ml/laura Nutrition Support: No Plan of Care - Nutrition Care Plans 1 Author: MARYELLEN Gorman Service: -- Author Type: Registered Dietitian Filed: 11/01/2024 11:09 AM Date of Service: 11/01/2024 11:09 AM Status: Signed Finish Saw Operator: MARYELLEN Gorman (Registered Dietitian) Problem: Malnutrition Description: Inadequate intake of protein and/or energy sufficient to negatively impact growth/development, and/or result in loss of fat or muscle stores. Related to: Inadequate energy intake, Interpretation of weight loss from baseline, Body fat loss, Muscle mass loss, Fluid accumulation, and acute illness/hospitalization As evidenced by: NFPE, self report of poor appetite, weight loss, transplant/surgery Goal: Increase Caloric Intake Outcome: Progressing Flowsheets (Taken 11/01/2024 110) Nutrition Education Application: Nutrition-related laboratory result interpretation education Collaboration and Referral of Nutrition Care: Collaboration with Interdisciplinary Team Meals and Snacks: General healthful diet Medical Food Supplement Therapy: (pt declines Ensure or other protein modular options) Commercial beverage/Oral nutrition supplement Vitamin and Mineral Supplement Therapy: (recommend multivitamin, on MagOx) Multi-Vitamin Mineral Feeding Assistance Management: Menu selection assistance Nutrition-Related Medication Management: (remeron) Nutrition-related medication Indicator/Monitor: pt to meet >= 75% estimated needs monitor weights, I/O, labwork/lytes, bowel function/stooling pattern Additional Comments/Recommendations: 69 y.o. s/p DCD OLT 09/09, readmission to this unit. Alcohol-induced cirrhosis c/b portal HTN, ascites, HE, large EV, Barretts (s/p BCC excision 2016), recent dx HCC (relisted for liver 09/04). During readmission to the hospital pt had an ERCP on 10/15, stricture was found in common hepatic duct- bile leak, large stone proximal to stenosis could not be removed- CT 10/16 abdominal drain, + cultures, repeat CT 10/18 showed moderate ascites, L pleural effusion. Pt had ab pain/distention, n/v, xray on 10/24 showed gaseous distention, scattered gas. NG removed on 10/25 after symptoms improved. Patient eating better during this admission but still reports that he 'thinks he wants to eat and the food looks good, but then can't eat much. On remeron, loves cereal and spouse to buy Special K with Protein to have on hand for snacks. Patient will take bites of protein bars during the day. Not having multiple loose stools. Patient is assessed to be severely malnourished and continues at significant risk, but is showing signs of improvement. Continue to advise on adequate calories and protein. Dislikes all supplement options. Suggest: Continue regular diet Add multivitamin Monitor weights, I/O, labwork/lytes, bowel function/stooling pattern RACHEL SILVERMAN LD 11/01/24 11:10 AM EDT * Aidan Brown MD - 11/01/2024 8:12 AM EDT Pulmonary / Critical Care CONSULTATION Patient Name: Charles Blandon : 1955 Medical Record: [id number] DATE OF SERVICE 11/01 PRIMARY CARE PHYSICIAN RUSTY DELGADO ATTENDING PHYSICIAN David Cruz DO CONSULTING PHYSICIAN AIDAN BROWN MD REASON FOR CONSULT Acute respiratory failure, pleural effusion HISTORY OF PRESENT ILLNESS The patient is a 69 y.o. 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 He was hospitalized with altered mental status, hyponatremia, elevated ammonia. He was evaluated for transplant and listed underwent surgery for liver transplant on and extubated next day postop was complicated by pleural effusion requiring right pigtail catheter which was removed on 09/22. Later he developed ileus slowly improved then discharged to rehab. He was readmitted to the hospital on 10/07 with abdominal pain CTabdomen showed ileus and ascites. CT chest showed moderate loculated right hydropneumothorax and moderate size left pleural effusion. He was also tested positive for parainfluenza. He was evaluated by Pulmonary he was given diuretics and albumin and underwent thoracentesis 320 cc drained He underwent ERCP for elevated alk-phos. It was noted to have pus and debris and large stone proximal to stenosis could not be removed mental stent placed in common bile duct. He had perihepatic fluid collection aspiration and drain placement. He is receiving IV daptomycin for positive Enterococcusbiliary infection to be continued till 11/12. He had repeat abdominal ultrasound with multiloculatedascites but not enough to drain. Patient was discharged to rehab on 10/31 Last chest x-ray on 10/11 with loculated medium size right atelectasis/consolidation and trace leftpleural effusion He is participating with PT today and breathing is stable on room air . There is order for CXR pending PAST MEDICAL HISTORY Past Medical History: Diagnosis Date Cancer Confusion Dizziness Hypertension Tremor PAST SURGICAL HISTORY Past Surgical History: Procedure Laterality Date ABDOMINAL SURGERY ALLERGIES No Known Allergies HOME MEDICATIONS Prior to Admission medications Not on File SOCIAL HISTORY reports that he has quit smoking. His smoking use included cigarettes. He has never used smokeless tobacco. He reports that he does not currently use alcohol. He reports that he does not currently use drugs after having used the following drugs: Marijuana. FAMILY HISTORY No family history on file. REVIEW OF SYSTEMS 12 points systems reviewed and pertinent positive mentioned in HPI PHYSICAL EXAM Vital Signs: Temp: [97.2 ??F (36.2 ??C)-98.7 ??F (37.1 ??C)] 97.2 ??F (36.2 ??C) Pulse: [69-97] 69 Resp: [17-19] 17 BP: (130-149)/(82-93) 149/83 General awake alert following command HEENT pupils equal and clear sclera clear oropharynx Neck supple, no lymphadenopathy Cardiovascular regular rhythm S1-S2 Lungs clear to auscultation no wheezing Abdomen soft nontender Extremity no edema cyanosis or clubbing Neurologically nonfocal cranial nerves intact grossly LABS CBC: Recent Labs Lab Units 11/01/24 0501 WBC k/uL 4.38 RBC AUTO m/uL 2.75* HEMOGLOBIN g/dL 8.2* HEMATOCRIT % 26.3* MCV fL 95.6 PLATELETS AUTO k/uL 565* BMP: Recent Labs Lab Units 10/31/24 0452 SODIUM mmol/L 136 POTASSIUM mmol/L 5.1 CHLORIDE mmol/L 102 CO2 mmol/L 22 BUN mg/dL 8* CREATININE mg/dL 0.82 GLUCOSE mg/dL 82 CALCIUM mg/dL 8.1* ANION GAP mmol/L 12 PT/INR: Troponin: CMP: Recent Labs Lab Units 10/31/24 0452 SODIUM mmol/L 136 POTASSIUM mmol/L 5.1 CHLORIDE mmol/L 102 CO2 mmol/L 22 BUN mg/dL 8* CREATININE mg/dL 0.82 GLUCOSE mg/dL 82 PROTEIN TOTAL g/dL 5.0* CALCIUM mg/dL 8.1* ALBUMIN g/dL 2.4* ALKALINE PHOSPHATASE U/L 158* ALT U/L 8* AST U/L 16 ANION GAP mmol/L 12 Calcium: Recent Labs Lab Units 10/31/24 0452 CALCIUM mg/dL 8.1* Ionized Calcium: Invalid input(s): IONCA ABG: Invalid input(s): BDEF IMAGING STUDIES & OTHER STUDIES I have reviewed all lmaging and testing from the last 24 hrs ASSESSMENT Active Problems: Critical illness myopathy S/p liver transplant Hepatocellular carcinoma BL pleural effusions and right hydropneumothorax post pig tail right side and thoracentesis Biliary infection on Daptomycin till 11/12 Ileus improved Multiloculated ascites Will follow repeat CXR but doubt that he will need any intervention for the effusions at this point Continue Daptomycin, no signs of side effects at this point The plan was discussed with the patient and/or family. Thank you for the Consult. * Suze Jenkins MD - 10/31/2024 11:20 AM EDT 10/31/2024 INTERNAL MEDICINE CONSULT NOTE Consults MEDICAL MANAGEMENT Refferring physician is Dr.Saman Barber HPI 69 yo male with etoh cirrhosis c/b HCC s/p DCD OLT w placement of R chest drain on 09/09/[address] Nava . Pt dc to [facility] 09/29 and returned for admission on 10/07 w increased Shortness of Breath and diarrhea. Pulmonary consulted and did not recommend thoracentesis but diuresis. Zosyn started for PNA coverage. RVP (+) parainfluenza and supportive care given. LV US (10/08) patent hepatic vasculature w appropriate directed flow. CBD wall thickening containing debris. Pt w notable rising alk phos through out hospital stay w decision to proceed w ERCP. ERCP (10/15) filling defects c/w stones and sludge.Single moderate biliary stricture found in common hepatic duct. Bile leak found eminating from the donor cystic duct remnant, appeared contained. Biliary tree swept and pus and debris found. Large stone proximal to the stenosis could not be removed. CT abd/pelvis w IV contrast (10/16) 5.2cm GB fossa collection, likely contained bile leak. Stable to slightly decreased size of geographic low attenuation in the R hepatic lobe, possibly inflammatory or evolving infarct. Patient underwent imaging guided abdominal drain placement into collection on 10/17. 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 ID consulted and Daptomycin was started. Patient had a repeat CT of the abdomen on 10/18 due to abdominal pain. It showed moderate ascites, left pleural effusion, stable right hydropneumothorax, and abdominal drain catheter with decompression of the gallbladder fossa collection. Patient with abdominal pain/distension with nausea and vomiting. Xray of the abdomen on 10/24 showedgastric gaseous distension and scattered gas filled nondilated small bowel and colon. An NG tube was placed on 10/24. He had a CT of the abdomen on 10/24 which showed decrease of the gallbladder fossa collection, moderate ascites, new peritoneal thickening/enhancement, and percutaneous drain. Patientwith improved symptoms so NG tube was removed on 10/25/24. He had a PICC line placed on 10/24/24 to continue antibiotic treatment until 11/12/24. Patient had developed chest pain with shortness of breath on 10/14. EKG on 10/14 showed normal sinus rhythm, HsTNT with no significant increase, and ECHO on 10/17 showed an EF of 55% with normal LV function. His chest pain and breathing improved. Patient had a thoracentesis on 10/14 with cultures being negative for infection and cytology was negative. Patient was given furosemide to manage edema whichimproved. Patient with history of T11 and T12 compression fractures. He reported increased back pain so consult with neurosurgery who recommended no further imaging and patient was currently not an appropriatesurgical candidate. Patient with dizziness and vertigo. MRI brain completed on 10/24 which showed noevidence of acute intracranial abnormality and sequela of chronic small vessel disease. Results of MRI brain were discussed with neurology who recommended outpatient followup with Vestibular Neurologist. 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 Consult with PM&R who recommended acute rehab. Patient was stable for discharge on 10/30/24. Review of Systems Review of Systems - History obtained from chart review and the patient General ROS: negative Psychological ROS: negative Allergy and Immunology ROS: negative Hematological and Lymphatic ROS: negative Endocrine ROS: negative Respiratory ROS: no cough, shortness of breath, or wheezing Cardiovascular ROS: chest pain , no dyspnea on exertion Gastrointestinal ROS: no abdominal pain, change in bowel habits, or black or bloody stools Musculoskeletal ROS: negative Neurological ROS: no TIA or stroke symptoms Dermatological ROS: negative Physicial Exam Vital signs for last 24 hours: Temp: [97.3 ??F (36.3 ??C)-97.9 ??F (36.6 ??C)] 97.9 ??F (36.6 ??C) Pulse: [70-100] 95 Resp: [12-18] 18 BP: (103-135)/(67-82) 130/82 Physical Exam Constitutional: Appearance: He is normal weight. HENT: Head: Normocephalic and atraumatic. Nose: Nose normal. Mouth/Throat: Mouth: Mucous membranes are moist. Pharynx: Oropharynx is clear. Eyes: Extraocular Movements: Extraocular movements intact. Pupils: Pupils are equal, round, and reactive to light. Cardiovascular: Rate and Rhythm: Normal rate. Abdominal: General: Bowel sounds are normal. There is distension. Palpations: Abdomen is soft. Musculoskeletal: General: Normal range of motion. Cervical back: Normal range of motion and neck supple. Right lower leg: Edema present. Left lower leg: Edema present. Skin: General: Skin is warm. Neurological: General: No focal deficit present. Mental Status: He is alert. Mental status is at baseline. Psychiatric: Mood and Affect: Mood normal. Intake/Output Summary (Last 24 hours) at 10/31/2024 1120 Last data filed at 10/31/2024 0800 Gross per 24 hour Intake 480 ml Output 45 ml Net 435 ml ASSESSMENT AND PLAN: 69 year old male with PMH EtOH cirrhosis/HCC, s/p DCD-OLT and drainage of right hydrothorax on 09/09/2024. He was [facility] on 09/[facility]. He is now readmitted with worsening abdominal distension/ascites with possible PV thrombus (non- contrast CT), worsening shortness of breath (loculated right hydropneumothorax and left moderate pleural effusion) and mildly slurred speech (CT brain negative). Fluid overload Lasix Nausea & vomiting KUB 10/24: Gastric gaseous distention. Scattered gas-filled nondilated small bowel and colon. Continue regular diet Continue bowel regimen Zofran PRN Chronic bilateral low back pain without sciatica History of T11 and T12 compression fractures Consulted Neurosurgery - not an appropriate surgical candidate Pain control PT/OT Vertigo CT brain 10/07: negative MRI brain 10/24: negative for acute abnormality follow up with Vestibular Neurologist, Dr. Roach VRLeón (vancomycin-resistant Enterococci) infection daptomycin Cytomegalovirus (CMV) viremia Continue Valcyte Follow CMV levels qMon Shortness of breath Moderate-sized loculated right hydropneumothorax. Interval increase in volume of a low-attenuation,medium-sized left pleural effusion EF = 55 ?? 5% (visual est.) Aortic sclerosis. RVP (+) parainfluenza 3 S/p left thoracentesis 10/14: 320 cc drained, culture NGTD Continue to monitor respiratory status Anemia due to multiple mechanisms Monitor Status post liver transplantation Moderate biliary stricture at common hepatic duct, post surgical. Bile leak from donor cystic duct remnant which appears contained. Biliary sphincterotomy. Biliary tree swept, pus and debris found. Lg stone proximal to stenosis could not be removed. Metal stent placed in CBD. CTAP 10/16: 5.2 cm collection in the gallbladder fossa with small amount of contrast, likely contained bile leak. Stable to slightly decreased size of geographic low-attenuation in the right hepatic lobe, possibly inflammatory or evolving infarct. Moderate volume abdominopelvic ascites. S/p Image-guided perihepatic collection aspiration + drain placement 10/17, culture + VRE New onset of abdominal pain 10/18 - CT abdomen w/o any acute processes KUB 10/19: Bowel gas pattern: Mildly dilated colon with the transverse colon measuring up to 6.2 cm. This is likely ileus. No significant small bowel dilatation. LVUS 10/19: Patent hepatic vasculature with appropriately directed flow. 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 Small volume loculated ascites. Plan: LVUS to evaluate vasculature and ascites Continue Daptomycin for VRE infection per ID recommendations (PICC line placed 10/24) with plan for at least 4 week course Monitor liver function daily Continue baby aspirin due to thrombocytosis Prophylaxis with bactrim Needs repeat ERCP in 1 month Severe protein-calorie malnutrition Continue regular diet Nutrition following GERD (gastroesophageal reflux disease) Continue pepcid BID SUZE JENKINS MD * Chelsea Cunningham MD - 10/31/2024 10:42 AM EDT Nephrology Consult Subjective: Reason for consult: Renal Management. The following portions of the patient's history were reviewed and updated as appropriate: allergies, current medications, past family history, past medical history, past social history, past surgicalhistory, and problem list. Patient had dialysis prior to admission: no Review of Systems: Pertinent items are noted in HPI. Objective: Vital signs in last 24 hours: Last 24 hours: Temp: [97.3 ??F (36.3 ??C)-97.9 ??F (36.6 ??C)] 97.9 ??F (36.6 ??C) Pulse: [70-100] 94 Resp: [12-17] 17 BP: (103-135)/(67-82) 130/82 and Most recent: Patient Vitals for the past 24 hrs: BP Temp Temp src Pulse Resp SpO2 Height Weight 10/31/24 1003 130/82 -- -- 94 -- 96 % -- -- 10/31/24 0718 135/76 97.9 ??F (36.6 ??C) Oral 70 17 94 % -- -- 10/30/241999 103/67 97.3 ??F (36.3 ??C) Oral 100 12 91 % 5' 9 (1.753 m) 159 lb (72.1 kg) Intake/Output: Intake/Output Summary (Last 24 hours) at 10/31/2024 1042 Last data filed at 10/31/2024 0800 Gross per 24 hour Intake 480 ml Output 45 ml Net 435 ml and I/O last 3 completed shifts: In: 240 [P.O.:240] Out: 45 [Drains:45] Weight: Latest Weight: 159 lb (72.1 kg) Physical Exam: General appearance: alert, appears stated age, and cooperative Lungs: clear to auscultation bilaterally Heart: regular rate and rhythm, S1, S2 normal, no murmur, click, rub or gallop Abdomen: soft, non-tender; bowel sounds normal; no masses, no organomegaly Extremities: extremities normal, atraumatic, no cyanosis or edema Pulses: 2+ and symmetric Skin: Skin color, texture, turgor normal. No rashes or lesions Neurologic: Grossly normal Imaging: Most Recent Reviewed Lab Results: CBC: Recent Labs Lab Units 10/31/24 0452 WBC k/uL 5.03 RBC AUTO m/uL 2.61* HEMOGLOBIN g/dL 7.9* HEMATOCRIT % 25.1* MCV fL 96.2 PLATELETS AUTO k/uL 526* BMP: Invalid input(s): AA , GLF , CA MG/PHOS: Assessment/Plan: Shortness of breath, abdominal distension, slurred speech Charles Blandon is a 69 year old male with a past medical history CKD 3 baseline creatinine 1.0-1.1,eGFR 60's-70's, HHT, Tipton's esophagus, and ETOH cirrhosis complicated by portal HTN, ascites, HE, large EV, and recently diagnosed HCC. He was admitted on to [facility] on 5/9 with altered mental status and hyponatremia. He was subsequently listed for liver transplant on 09/04/24. Now s/p DCD-OLT on 09/09/24. Patient was treated for RENATE Cr >2.8, resolved 09/16. Status improved and discharged to [facility] on 09/29. Patient returned to [facility] for admission on 10/07 w increased Shortness of Breath anddiarrhea. Pulmonary consulted and did not recommend thoracentesis but diuresis. Zosyn started for PNA coverage. RVP (+) parainfluenza and supportive care given. Required ERCP 10/15. Stay was complicated by Bile leak, image guided abdominal drain placement into collection with posituve cultures for E.Faecium. Started on IV dapotmycin, ordered until 11/12/24. Developed left pleural effusion requiringdiuresis and thoracentesis on 10/14 as well as gastric gaseous distension and scattered gas filled nondilated small bowel and colon requiring NG tube placement. ECHO on 10/17 showed an EF of 55% with normal LV function. Stay was further complicated by severe back pain, MRI obtained per neurology. 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 Pt discharged to [facility] on 10/30. RENATE secondary to prerenal azotemia in setting of hypotension (resolved) on CKD stage 3 Cr stable at baseline, will continue to follow the trend HTN Currently off antihypertensives, BP well controlled Will continue to follow the trend of BP HFpEF FVO Last echo 10/17 with EF 55% Euvolemic on exam Continue lasix 40 mg daily Continue strict I's and O's Will check BNP Will check CXR tomorrow morning Anemia Hgb 7.9, will start on MARGO therapy will continue to trend Liver Transplant On bactrim and tacrolimus and valcyte Will continue to follow the trend of kidney function Biliary stent infection On daptomycin until 11/13 Hypomagnesemia Given 2 g MagSulfat IV, will continue to follow the trend. Continue scheduled PO mag oxide 800 mg BID Results of MRI brain were discussed with neurology who recommended outpatient followup with Vestibular Neurologist Case discussed with Dr. Cunningham Thank you for your consult We will follow along with you SIGNATURE: BARRY PALMER, PIE BAKER PATIENT NAME: Charles Blandon DATE: October 31, 2024 TIME: 10:42 AM EDT PAGER: documented in this encounter Nursing Notes * Nikkie Durham RN - 11/15/2024 1:03 AM EDT Pt alert oriented x4 able to make needs known per pt no concerns at this time regarding upcoming discharge * Que Rubio RN - 11/13/2024 6:45 PM EDT Return from Appointment Nursing Note Charles Blandon was returned from an appointment at [facility] 11/13/2024, 1845. Upon return, a brief assessment was completed. Current Vital Signs: BP 137/79 Pulse 76 Temp 97.1 ??F (36.2 ??C) (Oral) Resp 18 Ht 5' 9 (1.753 m) Wt 143 lb (64.9 kg) SpO2 91% BMI 21.12 kg/m?? Digitally Signed QUE RUBIO RN at 11/13/2024 7:19 PM EDT * Que Rubio RN - 11/13/2024 4:00 PM EDT Report received from [facility] with updates regarding pt's ERCP. * Que Rubio RN - 11/13/2024 12:00 PM EDT Pre-Appointment Nursing Note Charles Blandon was transported to [facility] for an appointment. The patient's status was reviewed and deemed appropriate for transportation and all necessary accommodations provided. Current Vital Signs: BP 117/72 Pulse 72 Temp 97.1 ??F (36.2 ??C) (Oral) Resp 18 Ht 5' 9 (1.753 m) Wt 143 lb (64.9 kg) SpO2 91% BMI 21.12 kg/m?? Patient was transported via [employer] by wheel chair (name and type of transportation company). Patient left the facility 11/13/2024 Time: 1200. Digitally Signed QUE RUBIO RN at 11/13/2024 1:53 PM EDT * Nikkie Durham RN - 11/13/2024 3:07 AM EDT Pt alert able to make needs known cooperative with staff at present pt compliant with npo orders voicing no concerns * Marly Aly RN - 11/11/2024 11:51 PM EDT Oriented x 4. Continent of bowel and bladder. Back pain relieved with oxycodone. Afebrile/clear urine. * Nikkie Durham RN - 11/11/2024 4:29 AM EDT Pt alert able to make needs known pt compliant with safety measures no concerns voiced at this time * Que Rubio RN - 11/10/2024 5:00 PM EDT Pt alert and oriented X4. IV antibiotics tolerated well. Pain controlled with PRN medications. * Aniyah Howell RN - 11/09/2024 11:45 PM EDT Resting quietly. Alar on. Call light within reach. No distress noted on RA. * Aniyah Howell RN - 11/09/2024 9:10 PM EDT Pt in bed resting awakes easily. Alert and oriented. Denies pain or disc. R UA PICC intact. DANIEL drain on R upper abd'l quad intact. Bilat LE elevated on pillow with heels afloat. Alarm on. Call light within reach. No distress noted on RA. * Que Rubio RN - 11/09/2024 6:00 PM EDT Pt alert, oriented X4. Continent of bowel and bladder. IV antibiotics tolerated well. * Marly Aly RN - 11/08/2024 11:40 PM EDT Oriented x 4. Continent of urine. No output from drain at RLQ. Denies pain this evening. * Marly Aly RN - 11/07/2024 1:37 AM EDT Oriented x 4. Continent of bowel and bladder. Last BM 11/06. Abdominal pain relieved with oxycodone. * Que Rubio RN - 11/04/2024 4:00 PM EDT Pt alert, oriented X4. Continent of bowel and bladder, lbm 11/03/24. Pt experienced low blood pressures during morning therapy. Pt blood pressures returned within range after lying in bed. Provider notified. BP retaken during therapy at 1115, BP stable. * Juani Jay RN - 11/04/2024 2:20 AM EDT No c/o pain/discomfort. LBM 11/03. DANIEL drainwith 10ccs clear to yellow drainage. Patient sleeping w/odifficulty thus far. * Aniyah Howell RN - 10/31/2024 6:05 AM EDT Pt asleep. Awakes easily. Alert and oriented. Denies pain or disc. R UA PICC intact. R UQ DANIEL drain intact.Alarm on. Call light within reach. No distress noted on RA * Aniyah Howell RN - 10/31/2024 12:30 AM EDT Resting quietly. Alarm on. Laura light within reach. No distress noted on RA. * Aniyah Hoewll RN - 10/30/2024 11:15 PM EDT Skin assessment done with Serena Helms RN. * Aniyah Howell RN - 10/30/2024 8:10 PM EDT Admitted to room via stretcher accompanied by . Alert and oriented. Forgetful. VSS, C/O abdominal pain. Oriented to room, call light system, safety precautions and visitation hours. Discussed Rehab program. Verbalized understanding. R UA PICC intact. DANIEL drain on R upper abdomen intact with very light pink color drainage note. Edema noted on All ext. Bilat L elevated on pillow with heels afloat. Alarm on. Call light wthin reach. Non distress noted on RA. documented in this encounter Miscellaneous Notes * Plan of Care - Richard Dickerson RN - 11/15/2024 10:03 AM EDT Problem: Infection Goal: Absence of infection and prevention of transmission during hospitalization Outcome: Progressing Flowsheets (Taken 11/15/2024 1002) Absence of infection and prevention of transmission during hospitalization: Assess and monitor for signs and symptoms of infection and vital signs Monitor lab/diagnostic results Monitor all insertion sites i.e., indwelling lines, tubes and drains, obtain order to remove devicewhen no longer clinically necessary * Plan of Care - Nikkie Durham RN - 11/14/2024 7:59 PM EDT Problem: Knowledge Deficit Goal: Patient and/or family demonstrate readiness to learn Outcome: Progressing Flowsheets (Taken 11/14/20241957) Patient and/ or family demonstrates readiness to learn: Assess the patient's and/or family's understanding and ability to learn Identify learning needs, preferences, skill level and resources available Address any barriers to learning * PT Discharge Summary - Patience Hayes, PT - 11/14/2024 3:41 PM EDT Physical Therapy Discharge Summary Patient Name: Charles Blandon Patient Birthdate: 1955 PT CURRENT FUNCTIONAL STATUS: PT Current Functional Status: PT Current Functional Status: Charles Blandon's current mobility status is the following: mod I for transfers, ambulates short distances w/ RW at mod I, longer distances with CS-CGA and performs 8 stairs with L handrail and CGA-SBA DME recommendation: walker Therapy Recommendation at Discharge: HH PT DME Recommendations Common Therapy DME: Walker Walker : Adult Walker, 2 Wheeled Walker - 5in Wheels CARE Scores David: 6: Independent. [place] provides no assistance with tasks. A device may or may not have been used. 5: Set-up or clean-up assistance. [place] sets up or cleans up, but does not assist with tasks. [place] may have assisted prior to or following the activity. 4: Supervision or touching assistance. [place] provides verbal cues or touching/steadying or contactguard assistance. Assistance may be provided throughout the activity or intermittently. 3: Partial/moderate assistance. [place] does less than half the effort. [place] lifts, holds, or supports trunk or limbs, but provides less than half the effort. 2: Substantial/maximal assistance. [place] does more than half the effort. [place] lifts or holds trunk or limbs, and provides more than half the effort. 1: Dependent. [place] does all of the effort, or the assistance of two or more helpers is required for the patient to complete the activity. -: Inconsistent or incomplete documentation Activity not attempted values: 7: Patient refused 9: Not applicable - Not attempted and the patient did not perform this activity prior to the current illness, exacerbation, or injury. 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 Goal Status Discharge Status Car Transfer LTG: Independent Partially Achieved Car Transfer - CARE Score: 4 (11/14/241543) Walk 10 Feet LTG: Independent Achieved Walk 10 Feet - CARE Score: 6 (11/14/241543) Walk 50 Feet with Two Turns LTG: Independent Partially Achieved Walk 50 Feet with Two Turns - CARE Score: 4 (11/14/241543) Walk 150 Feet LTG: Supervision or touching assistance Partially Achieved Walk 150 Feet - CARE Score: 4 (11/14/241543) Walking 10 Feet on Uneven Surfaces LTG: Independent Partially Achieved Walking 10 Feet on Uneven Surfaces - CARE Score: 4 (11/14/241543) 1 Step (Curb) LTG: Independent Partially Achieved 1 Step (Curb) - CARE Score: 4 (11/14/241543) 4 Steps LTG: Independent Partially Achieved 4 Steps - CARE Score: 4 (11/14/241543) 12 Steps LTG: Supervision or touching assistance Not Achieved 12 Steps - CARE Score: 88 (11/14/241543) Picking Up Object LTG: Independent Partially Achieved Picking Up Object - CARE Score: 4 (11/14/241543) Wheel 50 Feet with Two Turns LTG: Not applicable N/A or No Goal Listed Wheel 50 Feet with Two Turns- CARE Score: 1 (11/14/241543) Wheel 150 Feet LTG: Not applicable N/A or No Goal Listed Wheel 150 Feet - CARE Score: 1 (11/14/241543) Discharge Instructions given to patient: PT Discharge Instructions [facility] Physical Therapy Discharge Instructions Precautions: None Discharge Location and Supervision/Assist: The following level of supervision is recommended: Supervision with walking and stairs Current Mobility Status: Transfers: independent (supervision for car transfer) Walking: supervision with walker Stair Climbing: hands-on assistance with handrail Home Exercise Program: Continue following the exercise program that was instructed to you by your therapist prior to discharge. PT Follow up Recommendations: Home PT services Diagnosis Specific Education Resources: [employer] ([employer]) [facility] Chapter Web: [facility]org [facility] [facility] Web: www.trioweb.org/chapters/active-chapters/item/qncl-svdro-lozsgr.html Home Safety: Remove throw rugs. Have adequate lighting. Remove objects from walkways. Ensure your smoke detectors are working. Do not transfer on a wet surface. Wear non-skid footware. Consider Life Alert or having cell phone available at all times. Take your time, no rushing! Home set up recommendations: Increase lighting in and around your home. A nightlight in the bedroom is advised if you may need to get up to go to the bathroom during the night. In the bedroom, consider adding a bed rail to assist when getting out of bed. Be sure to keep the phone within arm's reach. In the bathroom, use rubber mats in the shower or tub. Consider installing grab bars. Remove throw rugs in your home. Put everyday items on the lowest shelves to avoid using stepstools and chairs. Ask a relative or friend to rotate seasonal items in and out for easy access. Additional Information: Refer to physician before returning to work or driving. Please refer to your [facility] for further information if needed. Thank you for your participation in therapy at [facility]! You have made good progress throughout your stay. Please follow the following recommendations with all mobility and good luck with your next phase of rehabilitation! Keep working hard! PATIENCE HAYES, PT PATIENCE HAYES, PT 11/14/2024 * PT Treatment Note - Patience Hayes PT - 11/14/2024 12:57 PM EDT PT Treatment Patient Name: Charles Blandon Patient Birthdate: 1955 Patient Subjective Report - Upon arrival, pt seated EOB with present at bedside. Following session, pt supine in bed with call light and personal needs within reach. present at bedside. Pain Assessment Pain Context: Therapy Assessment Prior to Treatment (11/14/24 1300) Pain Assessment: NRS 0-10 (11/14/24 1300) Pain Score: 8 - Severe Pain (11/14/24 1300) Pain Severity - NRS (Calculated): Severe (11/14/24 1300) Pain Location: Back (11/14/24 1300) Pain Interventions Non-Pharmacologic Pain Interventions: Distractions, Position/Reposition (11/14/24 1300) Emotional/Spiritual Pain Interventions: Empathetic Discussion (11/14/24 1300) Bed Mobility Comment: Sit->supine: supervision with use of bed rail Gait Analysis: Pt amb 1x160' (10' over uneven carpet surface) + 1x360' + 1x180' with FWW and supervision for safety (SBA over carpet surface). Pt demo increased ankle DF throughout stance bilaterally, reciprocal pattern, and mild decrease in gait speed. Stair Analysis: Pt ascend/descend 4,6in steps with unilat HR and SBA for safety. pt demo nonreciprocal pattern and use of BUE on unilat HR descending. Technique 1: Sit to stand and Stand to sit Transfer Level of Assistance 1: Distant Supervision Trials/Comments1: Multiple throughout session with supervision for safety Transfer to 2: Wheelchair Transfer from 2: Bed Technique 2: Ambulatory Transfer Level of Assistance 2: Close Supervision and Distant Supervision Trials/Comments 2: Supervision-SBA for safety with no AD Transfer to 3: Bed Transfer from 3: Wheelchair Technique 3: Ambulatory Transfer Level of Assistance 3: Close Supervision and Distant Supervision Trials/Comments 3: SBA-supervision with no AD Therapeutic Activities and Neuromuscular Re-education: In standing position with use of tie presser, ptpick up 2in disc cone from floor with SBA-supervision for safety. Prior to trial, therapist provided visual demo and verbal education on technique. Education on d/c instructions, safety with mobility upon d/c home, benefits of continued mobility/stair practice upon d/c home, importance of walking and exercises to improve endurance and functionalstatus. PT Summary:: Pt tolerated session fairly well without adverse reaction to intervention. Session focused on evaluating progress toward goals. Pt required seated rest breaks between activities to manage fatigue. Pt would benefit from continued skilled intervention in order to improve performance, independence, and safety with functional mobility. Pain Evaluation and Follow-up Pain Reassessment: 8 (11/14/24 1415) Nursing notified of patient's pain assessment: Primary Nurse (11/14/24 1415) Therapy Minutes Individual Concurrent Co-Treat Individual (PT) Time In : 1300 Time Out: 1415 Total Time with Patient (Min): 75 min Variance from Scheduled Minutes: -15 (virtual appointment) PATIENCE HAYES, PT 11/14/2024 * OT Discharge Summary - Samuel Kaiser OT - 11/14/2024 12:15 PM EDT Occupational Therapy Discharge Summary Patient Name: Charles Blandon Patient Birthdate: 1955 OT Current Functional Status: Family Training completed with , Fabiana. Caregiver verbalizes and demonstrates the ability to provide assist as recommended by the treatment team based on the patient's current functional status. Bill should receive supervision at discharge provided by family in the home setting. Recommended that patient receive continued skilled therapies in the home setting to work on endurance and strength. Facilitating Factors in Goal Achievement: Patient understanding and knowledge, Patient compliance, Patient motivation, Use of compensatory strategies, Improved functional mobility, Support of family or caregiver, Support of significant other, Improved strength, Improved function, Improved balance, Improved skin integrity and Improved safety awareness Barriers to Goal Achievement: Diminished endurance Date Last Assessed: 11/14/2024 Patient needs assistance with the following activities: Going out in the community and Activities of daily living DME Recommendations Common Therapy DME: Tub Transfer Bench Tub Transfer Bench: Standard Tub Transfer Bench CARE Scores David: 6: Independent. [place] provides no assistance with tasks. A device may or may not have been used. 5: Set-up or clean-up assistance. [place] sets up or cleans up, but does not assist with tasks. [place] may have assisted prior to or following the activity. 4: Supervision or touching assistance. [place] provides verbal cues or touching/steadying or contactguard assistance. Assistance may be provided throughout the activity or intermittently. 3: Partial/moderate assistance. [place] does less than half the effort. [place] lifts, holds, or supports trunk or limbs, but provides less than half the effort. 2: Substantial/maximal assistance. [place] does more than half the effort. [place] lifts or holds trunk or limbs, and provides more than half the effort. 1: Dependent. [place] does all of the effort, or the assistance of two or more helpers is required for the patient to complete the activity. -: Inconsistent or incomplete documentation Activity not attempted values: 7: Patient refused 9: Not applicable - Not attempted and the patient did not perform this activity prior to the current illness, exacerbation, or injury. 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 Goal Status Discharge Status Eating LTG: Independent Achieved Eating - CARE Score: 6 (11/14/24 1152) Oral Hygiene LTG: Independent Achieved Oral Hygiene - CARE Score: 6 (11/14/24 115) Toileting Hygiene LTG: Independent Partially Achieved Supervision Toileting Hygiene - CARE Score: 4(11/14/24 115) Shower/Bathe Self LTG: Supervision or touching assistance Partially Achieved Min A Shower/Bathe Self - CARE Score: 3 (11/14/24 1152) Upper Body Dressing LTG: Independent Achieved Upper Body Dressing - CARE Score: 6 (11/14/24 1152) Lower Body Dressing LTG: Independent Achieved Lower Body Dressing - CARE Score: 6 (11/14/24 115) Putting On/Taking Off Footwear LTG: Independent Achieved Putting On/Taking Off Footwear - CARE Score: 6 (11/14/24 115) Roll Left and Right LTG: Independent Achieved Roll Left and Right - CARE Score: 6 (11/14/24 115) Sit to Lying LTG: Independent Achieved Sit to Lying - CARE Score: 6 (11/14/241151) Lying to Sitting on Side of Bed LTG: Independent Achieved Lying to Sitting on Side of Bed - CARE Score: 6 (11/14/24 115) Sit to Stand LTG: Independent Achieved Sit to Stand - CARE Score: 6 (11/14/241151) Chair/Dhk-pm-Ultiu Transfer LTG: Independent Achieved Chair/Okm-fm-Yhila Transfer - CARE Score: 6 (11/14/241151) Toilet Transfer LTG: Independent Achieved Toilet Transfer - CARE Score: 6 (11/14/241151) Additional Goals: N/A Discharge Instructions given to patient: OT Discharge Instructions Current functional status and/or level of assist required for Activities of Daily Living upon discharge: Oral Care: You can complete this activity alone if seated and You can perform this activity standing if you have someone nearby in case you need some help. Dressing: You will need some assistance to set-up this activity, You can complete upper body dressing alone if seated, You can complete lower body dressing seated on edge of bed or chair and stand topull up pants alone, and You may need some assistance to get started and to pull up your pants. Bathing: You will need someone to help you get on the tub/shower seat and help to get your legs over the tub. You will need this same help to safely get out of the tub/shower also, You will need someone to steady you as you get into the shower and sit down on the shower seat. You will also need help to get out of the shower safely, After you are safely seated in the shower/tub, you will need someone to help you wash your back, legs and hip area, and After you have washed, you will need some occasional help to safely dry your body. Toileting: You will need someone to steady you while you take care of your hygiene during toiletingand You will be able to transfer to the toilet, manage your clothing and hygiene with use of grab bar for stabilization by yourself. Precautions: Fall risk during ADLs: Increase lighting in and around your home. A nightlight in the bedroom is advised if you may need to get up to go to the bathroom during the night, Place a bed side commode next to your bed to avoid walking to the bathroom during the night, Toileting urgency is the sudden andintense feeling of the need to use the toilet. This feeling can lead to rushing, stumbling and falls. Set a scheduled reminder to go to the toilet every two hours to avoid this situation, In the bedroom, consider adding a bed rail to assist when getting out of bed. Be sure to keep the phone within arm's reach, In the bathroom, use rubber mats in the shower or tub. Consider installing grab bars, Remove throw rugs in your home, Keep stairs clutter-free. Install lights at the top and bottom to increase visibility. Add a second handrail to stairs. This will improve your balance on both sides, andIn the kitchen, put everyday items on the lowest shelves to avoid using stepstools and chairs. Ask a relative or friend to rotate seasonal items in and out for easy access. Skin Checks: Perform daily skin checks to buttocks to ensure good skin quality. Home Exercise Program: Continue following the exercise program that was instructed to you by your therapist prior to discharge. SAMUEL KAISER OT 11/14/2024 * OT Treatment Note - Samuel Kaiser OT - 11/14/2024 10:30 AM EDT Occupational Therapy Treatment Patient Name: Charles Blandon Patient Birthdate: 1955 Patient Subjective Report - Patient seated in w/c upon arrival, agreeable to OT session, but reports 8/10 low back pain. Pain Assessment Pain Context: Therapy Assessment Prior to Treatment (11/14/24 1034) Pain Assessment: NRS 0-10 (11/14/24 1034) Pain Score: 8 - Severe Pain (07/31/25 1034) Pain Severity - NRS (Calculated): Severe (11/14/241033) Pain Type: Acute pain (11/14/241033) Pain Location: Back (11/14/241033) Pain Orientation: Lower (11/14/241033) Pain Descriptors: Aching, Discomfort (11/14/241033) Pain Onset: Ongoing (11/14/241033) Pain Frequency: Constant/continuous (11/14/241033) Aggravating Factors: Activity Duration, Positioning (11/14/241033) Functional Impact: Transfers, Self care/ADL's (11/14/241033) Pre-therapy pain intervention required: Patient expressed pain is tolerable/able to proceed (11/14/241033) Pain Interventions Education Provided: Patient (11/14/241033) Non-Pharmacologic Pain Interventions: Distractions, Exercise/Activity (11/14/241033) Emotional/Spiritual Pain Interventions: Empathetic Discussion (11/14/241033) ADL Status: Grooming: Modified Independent Grooming Where Assessed: Standing at sink Grooming Comments: Mod I for oral hygiene standing at sink Bathing: Minimal Assistance Bathing Where Assessed: Seated in shower and Standing in shower Bathing Equipment Provided: Long-handled sponge Bathing Comments: Min A for washing/drying of back and buttocks while in standing Toileting: Modified Independent Toileting Where Assessed: Toilet Dressing Upper Body: Modified Independent Upper Body Dressing Where Assessed: Sitting in chair Dressing Lower Body: Modified Independent Lower Body Dressing Where Assessed: Sitting in chair Shower Transfer: Close Supervision Shower Transfer to: Shower seat with back Shower Transfer From: Stand Shower Transfer Technique: Ambulatory Shower Transfers Comments: With RW and grab bars Bed, Chair, Wheelchair Transfer: Modified Independent Bed/Chair Transfer to: Stand Bed/Chair Transfer from: Wheelchair Bed/Chair Transfer Technique: Sit to stand and Stand pivot Assistive Devices Used: Walker ADL Training: ADL Training Narrative: Patient and educated on need for assistance for showering tasks after discharge. Bed Mobility: Short sit to - from supine and Rolling side to side Bed Mobility Level of Assistance: Modified Independent OT Therapeutic Activity: Endurance: Patient completes 1 minute x 2 segments of functional mobility with supervision and use of RW. Patient reports dizziness after segment of mobility. Patient cued to take seated rest break d/t dizziness. Patient and both educated on need for rest breaks in sitting if there is any symptoms of dizziness, d/t that increasing risk of falls. Patient and verbalized understanding of education. Treatment, Outcomes and Plan: OT Narrative:: OT session focused on dressing, showering, and grooming tasks. Patient left laying in bed with all items within reach. OT Treatment Outcomes:: Safety device reapplied, Patient tolerated treatment well, Improved ADL performance, Improved ability to perform functional transfers, Improved balance and coordination, Improved safety awareness, Increased strength or muscular endurance (comment on location) and Improved ove rall functional endurance, reduced rest frequency OT Summary Plan of Care: Continue with current plan of care Pain Evaluation and Follow-up Pain Reassessment: 8 (11/14/24 1158) Nursing notified of patient's pain assessment: Primary Nurse (11/14/24 115) Therapy Minutes Individual Concurrent Co-Treat Individual (OT) Time In : 1030 Time Out: 1200 Total Time with Patient (Min): 90 min SAMUEL KAISER OT 11/14/2024 * Plan of Care - Richard Dickerson RN - 11/14/2024 9:36 AM EDT Problem: Infection Goal: Absence of infection and prevention of transmission during hospitalization Outcome: Progressing Flowsheets (Taken 11/14/2024 0936) Absence of infection and prevention of transmission during hospitalization: Assess and monitor for signs and symptoms of infection and vital signs Monitor lab/diagnostic results Monitor all insertion sites i.e., indwelling lines, tubes and drains, obtain order to remove devicewhen no longer clinically necessary * Plan of Care - Milagros Montes RN - 11/13/2024 7:39 PM EDT Problem: Infection Goal: Absence of infection and prevention of transmission during hospitalization Outcome: Progressing Flowsheets (Taken 11/12/2024 0951 by Richard Dickerson RN) Absence of infection and prevention of transmission during hospitalization: Assess and monitor for signs and symptoms of infection and vital signs Monitor lab/diagnostic results Monitor all insertion sites i.e., indwelling lines, tubes and drains, obtain order to remove devicewhen no longer clinically necessary Problem: Knowledge Deficit Goal: Patient and/or family demonstrate readiness to learn Outcome: Progressing Flowsheets (Taken 11/12/20241954 by Nikkie Durham, RN) Patient and/ or family demonstrates readiness to learn: Assess the patient's and/or family's understanding and ability to learn Identify learning needs, preferences, skill level and resources available Address any barriers to learning * Plan of Care - Que Rubio RN - 11/13/2024 10:26 AM EDT Problem: Fall Safety: [place] Precautions Goal: Free from fall injury Outcome: Progressing Flowsheets (Taken 11/12/20241954 by Nikkie Durham, LEO) Free from fall injury: Perform fall risk assessment and identifiers in place (as applicable) Put call light within reach and teach how to call for assistance, respond to call light immediately Offer frequent toileting Bed low, locked 2 side rails Toilet magnet in place (IR Only) Frequent rounding/monitoring Lighting appropriate Use of bed/chair alarm Encourage patient to wear glasses and hearing aids and to use walking aids when ambulating, non skid socks Safe mobility and activity (this could include chair safety) Assess for environmental or other risks Fall/safety education for patient/family/SO Frequent re-orientation, orient the patient to the environment * PT Treatment Note - Patience Hayes, PT - 11/13/2024 9:49 AM EDT PT Treatment Patient Name: Charles Blandon Patient Birthdate: 1955 Patient Subjective Report - pt received directly from OT in therapy gym. Pt reporting fatigue but agreeable to session. present. Following session, pt supine in bed with call light and personal needs within reach. present at bedside. Pain Assessment Pain Context: Therapy Assessment Prior to Treatment (11/13/24947) Pain Assessment: NRS 0-10 (11/13/24947) Pain Score: 8 - Severe Pain (11/13/24947) Pain Severity - NRS (Calculated): Severe (11/13/24947) Pain Location: Back (11/13/24947) Pain Interventions Non-Pharmacologic Pain Interventions: Distractions (11/13/24947) Emotional/Spiritual Pain Interventions: Emotional Support, Empathetic Discussion (11/13/24947) Bed Mobility Comment: Sit->supine supervision for safety with use of bed rail. Gait Analysis: Pt amb 1x180' + 1x65' with FWW and SBA for safety. Pt demo increased ankle DF throughout stance bilaterally, reciprocal pattern, and mild decrease in gait speed. Pt required prolonged seated rest between trials to manage fatigue and mild SOB Transfer to 1: Bed Transfer from 1: Wheelchair Technique 1: Ambulatory Transfer Level of Assistance 1: Close Supervision Trials/Comments1: SBA with no AD Technique 2: Sit to stand and Stand to sit Transfer Level of Assistance 2: Distant Supervision Trials/Comments 2: Multiple throughout session with supervision for safety Therapeutic Activities and Neuromuscular Re-education: To improve transfers and BLE strength, pt completed blocked practice sit<->stands: 5x5 with use of BUE on arm rests for support. Pt required prolonged seated rest between trials to manage fatigue and mild SOB Pt performed the following exercises in order to improve BLE strength for functional transfers and gait. Verbal and visual cues provided throughout to ensure proper performance. BLE exercises performed with 2lb ankle weights bilat. Pt required therapeutic rest breaks between exercises to manage fatigue and pain. -LAQ: 2x15 -ankle DF: 2x25 -seated heel raise: 2x25 -seated hip abduction: 2x15 with red TB -hamstring curls: 2x15 with red TB PT Summary:: Pt tolerated session fairly well without adverse reaction to intervention. Session focused on BLE strength, gait, and transfers. Pt required frequent and prolonged rest breaks throughoutsession to manage fatigue and pain. Pt would benefit from continued skilled intervention in order to improve performance, independence, and safety with functional mobility. Pain Evaluation and Follow-up Pain Reassessment: 9 (11/13/24 1100) Nursing notified of patient's pain assessment: Primary Nurse (11/13/24 1100) Therapy Minutes Individual Concurrent Co-Treat Individual (PT) Time In : 09 Time Out: 1100 Total Time with Patient (Min): 75 min Variance from Scheduled Minutes: -15 (transport arriving and pt fatigued d/t back to back sessions) PATIENCE HAYES, PT 11/13/2024 * OT Treatment Note - Samuel Kaiser, OT - 11/13/2024 8:15 AM EDT Occupational Therapy Treatment Patient Name: Charles Blandon Patient Birthdate: 1955 Patient Subjective Report - Patient laying in bed upon arrival, agreeable to OT session. Patient reports already completing dressing this morning. Pain Assessment Pain Context: Therapy Assessment Prior to Treatment (11/13/24816) Pain Assessment: NRS 0-10 (11/13/24816) Pain Score: 0 - No pain (11/13/24816) Pain Severity - NRS (Calculated): No pain (11/13/24816) Vital Signs Pulse: 90 (11/13/24 09) BP: 113/74 (11/13/24910) MAP (mmHg): 87 (11/13/24910) BP Location: Left arm (11/13/24910) BP Method: Automatic (11/13/24910) Patient Position: Sitting (11/13/24910) SpO2: 91 % (11/13/24910) ADL Status: Grooming: Close Supervision Grooming Where Assessed: Standing at sink Grooming Comments: Close supervision for standing at sink for oral hygiene Dressing Lower Body: Setup Lower Body Dressing Where Assessed: Sitting edge of bed Lower Body Dressing Comments: Set up for donning slip on shoes, placement of shoes onto floor Tub Transfer: Minimal Assistance Tub Transfer To: Standing Tub Transfer From: Stand Tub Transfer Technique: Sit to stand and Ambulatory Tub Transfers Comments: Tub over tub wall using tub wall grab bar, transfer was completed to simulate transfer at home, patient's purchased shower chair and tub wall grab bar, patient able to utilize grab bar to stabilize self to step over tub, but required Mod verbal cues for positioning and sequencing of transfer, patient also required Min A to lift unilateral foot over tub wall, d/t increased tub height making it difficult to tomas tub wall, patient's reports tub wall at home is shorter then one trialed today Bed, Chair, Wheelchair Transfer: Modified Independent Bed/Chair Transfer to: Stand Bed/Chair Transfer from: Wheelchair Bed/Chair Transfer Technique: Sit to stand Assistive Devices Used: Walker Transfer Training: Transfer Narrative: Patient's educated on assistance required for tub transfer performance at home after discharge, d/t decreased balance. Patient's understanding of education. Bed Mobility: Short sit to - from supine Bed Mobility Level of Assistance: Modified Independent OT Therapeutic Activity: Therapeutic Exercise: Patient challenged with BUE exercises with 2lb weighted ball. Patient completes 10 reps x 5 sets and 20 reps x 1 set of exercises for shoulder flexion and trunk rotation. Patient with improved tolerance to exercises with increased sets. Patient with fair tolerance to BUE exercises, with increased SOB during dynamic standing and BUE exercises. Patient with increased SOB and shakiness in BLEs, requiring increased rest breaks. Patient challenged with SciFit exercises for improved overall strengthening and endurance. Patient able to tolerate 2 minutes x 2 segments of SciFit exercises on level 1. Patient required rest breaksbetween segments, d/t fatigue and symptoms of SOB. Therapeutic Activity: Patient challenged with navigation within therapy gym to challenge endurance and safety with use of RW. Patient challenged with finding 7 cones within therapy gym, completing 5 minutes of mobility without significant fatigue. Patient challenged with 1 minute x 2 segments of walking. Patient required rest breaks after 1 minute segments d/t fatigue, SOB, and symptoms of dizziness. Patient with BP at 113/74 after reported symptoms of dizziness. Patient challenged with side-stepping activity at table to simulate ADL/IADL functional mobility. Patient challenged with grabbing items on one side of 5 ft table to the other side of table. Patient able to tolerate 5 items back and forth x 2 segments with rest breaks in between d/t increased fatigue and report of back pain. Treatment, Outcomes and Plan: OT Narrative:: OT session focused on endurance, strengthening, ADLs, and transfers. Patient left seated in w/c with hand-off completed to PT. Patient fatigued after 90 minute OT session, PT aware. OT Treatment Outcomes:: Safety device reapplied, Patient tolerated treatment well, Improved abilityto perform functional transfers, Improved ADL performance, Improved safety awareness, Increased strength or muscular endurance (comment on location), Improved balance and coordination and Improved overall functional endurance, reduced rest frequency OT Summary Plan of Care: Continue with current plan of care Pain Evaluation and Follow-up Pain Reassessment: 9 (11/13/24943) Nursing notified of patient's pain assessment: Primary Nurse (11/13/24943) Therapy Minutes Individual Concurrent Co-Treat Individual (OT) Time In : 814 Time Out: 944 Total Time with Patient (Min): 90 min SAMUEL KAISER OT 11/13/2024 * Plan of Care - Nikkie Durham RN - 11/12/2024 7:55 PM EDT Problem: Knowledge Deficit Goal: Patient and/or family demonstrate readiness to learn Outcome: Progressing Flowsheets (Taken 11/12/20241954) Patient and/ or family demonstrates readiness to learn: Assess the patient's and/or family's understanding and ability to learn Identify learning needs, preferences, skill level and resources available Address any barriers to learning * OT Treatment Note - Samuel Kaiser OT - 11/12/2024 1:45 PM EDT Occupational Therapy Treatment Patient Name: Charles Blandon Patient Birthdate: 1955 Patient Subjective Report - Patient laying in bed upon arrival, agreeable to OT session. Pain Assessment Pain Context: Therapy Assessment Prior to Treatment (11/12/241348) Pain Assessment: NRS 0-10 (11/12/241348) Pain Score: 7 - Severe Pain (11/12/241348) Pain Severity - NRS (Calculated): Severe (11/12/241348) Pain Type: Acute pain (11/12/241348) Pain Location: Back (11/12/241348) Pain Orientation: Lower (11/12/241348) Pain Descriptors: Aching (11/12/24 134) Pain Onset: Ongoing (11/12/241348) Pain Frequency: Constant/continuous (11/12/241348) Aggravating Factors: Activity Duration, Positioning (11/12/24 134) Functional Impact: None (11/12/241348) Pre-therapy pain intervention required: Patient expressed pain is tolerable/able to proceed (11/12/241348) Pain Interventions Education Provided: Patient (11/12/241348) Non-Pharmacologic Pain Interventions: Exercise/Activity, Distractions (11/12/241348) Emotional/Spiritual Pain Interventions: Empathetic Discussion (11/12/241348) ADL Status: Bed, Chair, Wheelchair Transfer: Modified Independent Bed/Chair Transfer to: Stand Bed/Chair Transfer from: Wheelchair Bed/Chair Transfer Technique: Sit to stand and Stand pivot Bed/Chair Transfer Status: With verbal cues required/provided and With stand by assist Bed Mobility: Short sit to - from supine Bed Mobility Level of Assistance: Modified Independent Bed Mobility Comment: Mod I supine <> sit OT Therapeutic Activity: Therapeutic Activity: Patient challenged with dynamic standing activity. Patient challenged with standing with use of unilateral to no UE support on RW only. Patient able to tolerate 5 minutes x 3 segments and 7 minutes x 1 segment this date. Patient with good standing balance. Patient with improved standing tolerance with date without significant report of fatigue. Patient Education: Therapist discussed with patient and about safety strategies after discharge during ADLs, transfers, and mobility. Treatment, Outcomes and Plan: OT Narrative:: OT session focused on endurance, standing tolerance, and transfer performance. Patient left laying in bed with all items within reach at end of session. OT Treatment Outcomes:: Safety device reapplied, Patient tolerated treatment well, Improved ADL performance, Improved ability to perform functional transfers, Increased strength or muscular endurance(comment on location), Improved overall functional endurance, reduced rest frequency, Improved balance and coordination and Improved safety awareness OT Summary Plan of Care: Continue with current plan of care Pain Evaluation and Follow-up Pain Reassessment: 7 (11/12/241427) Nursing notified of patient's pain assessment: Primary Nurse (11/12/24 142) Therapy Minutes Individual Concurrent Co-Treat Individual (OT) Time In : 1345 Time Out: 1430 Total Time with Patient (Min): 45 min SAMUEL KAISER OT 11/12/2024 * Non-treatment Therapy Note - Courtney Harris, PT - 11/12/2024 10:18 AM EDT Prior to team conference, Anh Medrano , primary treating therapist, and I (designated therapist toattend team rounds) have communicated regarding current patient status, progress towards goals and modifications to plan of care as appropriate. COURTNEY HARRIS, PT * Plan of Care - Richard Dickerson RN - 11/12/2024 9:51 AM EDT Problem: Infection Goal: Absence of infection and prevention of transmission during hospitalization Outcome: Progressing Flowsheets (Taken 11/12/2024 0951) Absence of infection and prevention of transmission during hospitalization: Assess and monitor for signs and symptoms of infection and vital signs Monitor lab/diagnostic results Monitor all insertion sites i.e., indwelling lines, tubes and drains, obtain order to remove devicewhen no longer clinically necessary * PT Treatment Note - Patience Hayes, PT - 11/12/2024 9:47 AM EDT PT Treatment Patient Name: Charles Blandon Patient Birthdate: 1955 Patient Subjective Report - Upon arrival, pt supine in bed and agreeable to session. Following session, pt supine in bed with call light and personal needs within reach. Pain Assessment Pain Context: Therapy Assessment Prior to Treatment (11/12/24944) Pain Assessment: NRS 0-10 (11/12/24944) Pain Score: 7 - Severe Pain (11/12/24944) Pain Severity - NRS (Calculated): Severe (11/12/24944) Pain Location: Back (11/12/24944) Pain Interventions Non-Pharmacologic Pain Interventions: Distractions (11/12/24944) Emotional/Spiritual Pain Interventions: Empathetic Discussion, Emotional Support (11/12/24944) Gait Analysis: Pt amb 2x200' + 1x150' with FWW and supervision-SBA for safety d/t c/o dizziness. Ptwith reciprocal pattern and mildly decreased speed. Pt required prolonged rest breaks between trials d/t fatigue and mild SOB. Transfer to 1: Car and Wheelchair Transfer from 1: Wheelchair and Car Transfer Level of Assistance 1: Close Supervision and Contact Guard Trials/Comments1: W/c<->truck transfer x2 with CGA-SBA for safety. holding truck door tostabilize d/t pt utilzing light UE support on door to get into truck. increased time required to complete d/t requiring rest breaks between each transfer to manage fatigue and mild SOB Transfer to 2: Wheelchair and Bed Transfer from 2: Bed and Wheelchair Technique 2: Ambulatory Transfer Level of Assistance 2: Close Supervision Trials/Comments 2: SBA for safety without AD Transfer to 3: Wheelchair and Toilet Transfer from 3: Toilet and Wheelchair Technique 3: Ambulatory Transfer Level of Assistance 3: Close Supervision Trials/Comments 3: SBA with use of grab bars and no AD. Seated Position: To improve BLE strength for gait and functional mobility, pt completed the following exercises: heel slides 1x10, ankle pumps 1x35 Therapeutic Activities and Neuromuscular Re-education: Education/discussion regarding discharge planning and safety with mobility at home. PT Summary:: Pt tolerated session fairly well without adverse reaction to intervention. Session focused on gait and transfers. Pt required frequent and prolonged rest breaks throughout session to manage fatigue/mild SOB. Pt would benefit from continued skilled intervention in order to improve performance, independence, and safety with functional mobility. Pain Evaluation and Follow-up Pain Reassessment: 8 (11/12/241114) Nursing notified of patient's pain assessment: Primary Nurse (11/12/241114) Therapy Minutes Individual Concurrent Co-Treat Individual (PT) Time In : 944 Time Out: 1114 Total Time with Patient (Min): 90 min PATIENCE HAYES, PT 11/12/2024 * OT Treatment Note - Samuel Kaiser OT - 11/12/2024 7:30 AM EDT Occupational Therapy Treatment Patient Name: Charles Blandon Patient Birthdate: 1955 Patient Subjective Report - I slept better Patient laying in bed upon arrival, agreeable to OT session. Pain Assessment Pain Context: Therapy Assessment Prior to Treatment (11/12/24730) Pain Assessment: NRS 0-10 (11/12/24730) Pain Score: 2 - Mild Pain (11/12/24730) Pain Severity - NRS (Calculated): Mild (11/12/24730) Pain Type: Acute pain (11/12/24730) Pain Location: Abdomen (11/12/24730) Pain Orientation: Lower (11/12/24730) Pain Descriptors: Aching (11/12/24730) Pain Onset: Ongoing (11/12/24730) Pain Frequency: Constant/continuous (11/12/24730) Aggravating Factors: Activity Duration, Positioning (11/12/24730) Functional Impact: Transfers (11/12/24730) Pre-therapy pain intervention required: Patient expressed pain is tolerable/able to proceed (11/12/24730) Pain Interventions Education Provided: Patient (11/12/24730) Non-Pharmacologic Pain Interventions: Distractions, Exercise/Activity (11/12/24730) Emotional/Spiritual Pain Interventions: Empathetic Discussion (11/12/24730) ADL Status: Eating: Independent Eating Where Assessed: Sitting at table Feeding Comments: IND for opening of containers Grooming Comments: Declines oral hygiene before breakfast Dressing Upper Body: Close Supervision Upper Body Dressing Where Assessed: Sitting edge of bed Upper Body Dressing Comments: Close superivision of UB dressing to don/doff shirt Dressing Lower Body: Minimal Assistance Lower Body Dressing Where Assessed: Sitting edge of bed Lower Body Dressing Comments: Min A required for unthreading of pants/underwear off of feet, but patient able to thread feet into underwear/pants and pull up/down over hips with supervision, patient reports my always helps me Bed, Chair, Wheelchair Transfer: Distant Supervision Bed/Chair Transfer to: Stand Bed/Chair Transfer from: Wheelchair Bed/Chair Transfer Technique: Sit to stand and Stand pivot Bed/Chair Transfer Status: With stand by assist Bed/Chair Transfer Comments: Distant supervision for STS and stand pivot transfers from bed to wheelchair. ADL Training: ADL Training Narrative: Patient educated on increased participation in ADLs for improved endurance and IND overall. Patient understanding of education. Bed Mobility: Short sit to - from supine Bed Mobility Level of Assistance: Modified Independent Bed Mobility Comment: Mod I for supine > sit OT Therapeutic Activity: Therapeutic Exercise: Patient challenged with BUE exercises with 2lb weight. Patient completes 15 reps x 8 sets of exercises for shoulder presses, chest presses, bicep curls, and shoulder horizontal abduction. Patient able to tolerate 10 reps x 4 sets for shoulder flexion and shoulder abduction. Patient with good tolerance to BUE exercises, but required rest breaks between sets for reduced symptoms of SOB. Activity was done to challenge endurance, strength, and overall independence. Treatment, Outcomes and Plan: OT Narrative:: OT session focused on endurance, strength, and ADLs. Patient left seated in w/c withseat belt alarm on and all items within reach. present at end of session. OT Treatment Outcomes:: Safety device reapplied, Patient tolerated treatment well, Improved balanceand coordination, Increased strength or muscular endurance (comment on location), Improved safety awareness, Improved ability to perform functional transfers, Improved ADL performance and Improved overall functional endurance, reduced rest frequency OT Summary Plan of Care: Continue with current plan of care Pain Evaluation and Follow-up Pain Reassessment: 7 (11/12/24811) Nursing notified of patient's pain assessment: Primary Nurse (11/12/24811) Therapy Minutes Individual Concurrent Co-Treat Individual (OT) Time In : 729 Time Out: 814 Total Time with Patient (Min): 45 min SAMUEL KAISER OT 11/12/2024 * Non-treatment Therapy Note - Leticia Borrero OT - 11/12/2024 6:35 AM EDT Prior to team conference: the Primary therapist (Samuel Kaiser OT) and I (designated therapist toattend team rounds) have communicated regarding current patient status, progress toward goals and modifications to plan of care as appropriate. LETICIA BORRERO OT * Plan of Care - Marly Aly RN - 11/11/2024 11:55 PM EDT Problem: Infection Goal: Absence of infection and prevention of transmission during hospitalization Outcome: Progressing Flowsheets (Taken 11/11/2024 2353) Absence of infection and prevention of transmission during hospitalization: Assess and monitor for signs and symptoms of infection and vital signs Monitor lab/diagnostic results Monitor all insertion sites i.e., indwelling lines, tubes and drains, obtain order to remove devicewhen no longer clinically necessary Note: Afebrile / tolerating antibiotic without difficulty Problem: Fall Safety: [place] Precautions Goal: Free from fall injury Outcome: Progressing Flowsheets (Taken 11/11/20242352) Free from fall injury: (3 side rails up) Perform fall risk assessment and identifiers in place (as applicable) Frequent rounding/monitoring Lighting appropriate Use of bed/chair alarm Bed low, locked 2 side rails Put call light within reach and teach how to call for assistance, respond to call light immediately Offer frequent toileting Toilet magnet in place ([facility] Only) Encourage patient to wear glasses and hearing aids and to use walking aids when ambulating, non skid socks Assess for environmental or other risks Safe mobility and activity (this could include chair safety) Note: Cooperative with safety plan of care Problem: Pain Goal: Patient's Pain/Discomfort is Manageable Outcome: Progressing Flowsheets (Taken 11/11/2024 2353) Patient's Pain/Discomfort is Manageable: Assess pain level Include patient/family/caregiver in decisions related to pain management Provide Emotional/Spiritual Support Administer medications as ordered Reassess patient's response and tolerance to discomfort Offer non-pharmocological pain management interventions Note: Reports adequate pain control * Plan of Care - MARYELLEN Gorman - 11/11/2024 4:46 PM EDT Problem: Malnutrition Description: Inadequate intake of protein and/or energy sufficient to negatively impact growth/development, and/or result in loss of fat or muscle stores. Related to: Inadequate energy intake, Interpretation of weight loss from baseline, Body fat loss, Muscle mass loss, Fluid accumulation, and acute illness/hospitalization As evidenced by: NFPE, self report of poor appetite, weight loss, transplant/surgery Goal: Increase Caloric Intake Outcome: Progressing Flowsheets (Taken 11/01/2024 1107) Nutrition Education Application: Nutrition-related laboratory result interpretation education Collaboration and Referral of Nutrition Care: Collaboration with Interdisciplinary Team Meals and Snacks: General healthful diet Medical Food Supplement Therapy: (pt declines Ensure or other protein modular options) Commercial beverage/Oral nutrition supplement Vitamin and Mineral Supplement Therapy: (recommend multivitamin, on MagOx) Multi-Vitamin Mineral Feeding Assistance Management: Menu selection assistance Nutrition-Related Medication Management: (remeron) Nutrition-related medication Indicator/Monitor: pt to meet >= 75% estimated needs monitor weights, I/O, labwork/lytes, bowel function/stooling pattern Note: Pt is progressing towards meeting > 75% estimated needs * PT Treatment Note - Belinda Larsen, PT - 11/11/2024 2:30 PM EDT PT Treatment Patient Name: Charles Blandon Patient Birthdate: 1955 Patient Subjective Report - Patient found in bed, IV beeping thus PT alerted RN to remove prior to mobility. Patient agreeable to session, endorsing ongoing pain in low back and abdomen and I'm exhausted . Fabiana at bedside. PT donned mask throughout session to maintain precautions. Pain Assessment Pain Context: Therapy Assessment During Treatment (11/11/24 1511) Pain Assessment: NRS 0-10 (11/11/24 1436) Pain Score: 8 - Severe Pain (11/11/24 1436) Pain Severity - NRS (Calculated): Severe (11/11/24 1436) Pain Type: Acute pain (11/11/24 1436) Pain Location: Abdomen (11/11/24 1436) Pain Orientation: Lower (11/11/24 1436) Pain Descriptors: Discomfort, Sharp (11/11/24 1436) Pain Onset: Ongoing (11/11/24 1436) Pain Frequency: Constant/continuous (11/11/241435) Aggravating Factors: Activity Duration, Positioning (11/11/241435) Functional Impact: None (11/11/241435) Additional Pain Site(s)?: Pain 2 (11/11/241435) Pre-therapy pain intervention required: Patient expressed pain is tolerable/able to proceed (11/11/241435) Pain Interventions Education Provided: Patient (11/11/24 151) Non-Pharmacologic Pain Interventions: Distractions, Position/Reposition, Rest (11/11/24 151) Emotional/Spiritual Pain Interventions: Emotional Support (11/11/24 151) Pain Site 2 Pain Assessment Site 2: NRS 0-10 (11/11/241435) Pain Score Site 2: 8 (11/11/241435) Pain Severity - NRS (Calculated): Severe (11/11/241435) Pain Type Site 2: Chronic pain (11/11/241435) Pain Location Site 2: Back (11/11/241435) Pain Descriptors Site 2: Radiating (11/11/241435) Pain Onset Site 2: On-going (11/11/241435) Pain Frequency Site 2: Constant/continuous (11/11/241435) Pain Aggravating Factors Site 2: Activity Duration (11/11/241435) Vital Signs BP: 122/73 ( worst dizziness during session after stepping activity on foam pad) (11/11/24 1503) MAP (mmHg): 89.33 (11/11/24 1503) BP Location: Left arm (11/11/24 1503) BP Method: Automatic (11/11/24 1503) Patient Position: Sitting (11/11/24 1503) Bed Mobility: Short sit to - from supine Bed Mobility Level of Assistance: Modified Independent Bed Mobility Comment: Supine <> short sitting EOB with HOB elevated, mod I. Able to then donnBL slip-on shoes prior to transfer and then upon return to bed at end of session. Surface: Indoor, Smooth surface and Even surface Assistive Device: RW Ambulation Level of Assistance: Contact Guard Gait Analysis: Ambulated ~15' x2 using RW, CGA; demonstrated good navigation of device along turns in room, sufficient balance and strength Ambulated 1 lap around gym using RW, CGA-SUP; demonstrated increased speed and step length with effective heel strike, admitted to dizziness during final steps to approach w/c Technique 1: Sit to stand and Stand to sit Transfer Level of Assistance 1: Contact Guard and Close Supervision Trials/Comments1: X7 during session to/from RW or bennett bar, CGA-SUP by this PT Transfer to 2: Bed Transfer from 2: Wheelchair Technique 2: Stand pivot and To left Transfer Level of Assistance 2: Contact Guard Trials/Comments 2: W/o AD per patient request Surface: Indoor, Smooth surfaces and Even surface Wheelchair Propulsion Level of Assistance: Total Assistance/Dependent Wheelchair Analysis: PT dependently transported patient room <> therapy gym, utilizing this time as a therapeutic rest break between activities. Therapeutic Activities and Neuromuscular Re-education: Static/dynamic sitting/standing balance ~4' to complete LE dressing and voiding at toilet; able to manage clothing and void in standing SBA Performed the following standing activities at the bennett bar to improve strength and balance: -walking FWD x10' f/b walking BWD x10' with R UE on bennett bar with subsequent 2nd bout including marching FWD x10' f/b marching BWD x10'; min A initially when stepping BWD requiring cues for nose over toes and improved anterior weight shift during 2nd bout -stepping over 4 hurdles FWD then BWD with R UE on bennett bar; CGA with downward gaze required when stepping BWD -side stepping toward L over 4 hurdles then toward R over 4, advancing from BL > unilateral >no UE support; min A required w/o UE support d/t variable foot placement and unsteadiness -side stepping onto/off of foam pad x3 each direction advancing from BL UE> unilateral > no UE support; min A required w/o UE support, additional reps limited by dizziness/fatigue PT Treatment Outcomes:: Goals met for this session and Patient tolerated session fair PT Summary:: Session focused on transfers, gait, dynamic standing balance and LE strengthening. Able to initiate various activities at bennett bar, advancing toward no UE support with up to min A to steady. Remains limited by balance deficits, weakness, and generalized fatigue; continue to address prior to discharge. PT Summary Plan of Care: Continue with current plan of care Pain Evaluation and Follow-up Response to Therapy Interventions: Improved activity tolerance (11/11/24 151) Pain Reassessment: 8 (11/11/24 151) Nursing notified of patient's pain assessment: Primary Nurse (11/11/241510) Patient left in bed with needs/call wright within reach, remaining present in room. Therapy Minutes Individual Concurrent Co-Treat Individual (PT) Time In : 1430 Time Out: 1515 Total Time with Patient (Min): 45 min BELINDA LARSEN, PT 11/11/2024 * PT Weekly Progress Note - Anh Medrano, PT - 11/11/2024 12:15 PM EDT PT Weekly Progress Note Patient Name: Charles Blandon Patient Birthdate: 1955 PT CURRENT FUNCTIONAL STATUS: PT Current Functional Status: PT Current Functional Status: Charles Blandon's current mobility status is the following: mod I for transfers, ambulates household distances w/ RW at mod I, community distances with RW, CS-CGA and performs 8 stairs with L handrail and CG-min A Progress since last update: improved indep with transfers/ambulation and stairs Limitations include: back and abdominal pain, fatigue, weakness, JESUS home Charles Blandon will benefit from continued PT services to address these deficits and progress patient's independence/safety with mobility DME recommendation: walker Therapy Recommendation at Discharge: PT Family Training Needs: Completed Home Set Up: 3 JESUS with R rail Skin Assessment: Skin check completed 11/11/2024, no new areas of concern noted on bilateral feet/heels or under braces (if applicable). Factors in Goal Achievement: Facilitating Factors: Support of family or caregiver and Improved functional mobility Barriers: Pain, Strength limitations, Diminished endurance and Balance deficits Date Last Assessed: 11/11/2024 DME Recommendations Common Therapy DME: Walker Walker : Adult Walker, 2 Wheeled Walker - 5in Wheels CARE Score David: 6: Independent. [place] provides no assistance with tasks. A device may or may not have been used. 5: Set-up or clean-up assistance. [place] sets up or cleans up, but does not assist with tasks. [place] may have assisted prior to or following the activity. 4: Supervision or touching assistance. [place] provides verbal cues or touching/steadying or contactguard assistance. Assistance may be provided throughout the activity or intermittently. 3: Partial/moderate assistance. [place] does less than half the effort. [place] lifts, holds, or supports trunk or limbs, but provides less than half the effort. 2: Substantial/maximal assistance. [place] does more than half the effort. [place] lifts or holds trunk or limbs, and provides more than half the effort. 1: Dependent. [place] does all of the effort, or the assistance of two or more helpers is required for the patient to complete the activity. -: Inconsistent or incomplete documentation Activity not attempted values: 7: Patient refused 9: Not applicable - Not attempted and the patient did not perform this activity prior to the current illness, exacerbation, or injury. 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 Status on Admission Current Status Car Transfer LTG: Independent Car Transfer - CARE Score: 3 (10/31/24 123) Car Transfer - CARE Score: 3 (11/11/241217) Walk 10 Feet LTG: Independent Walk 10 Feet - CARE Score: 1 (10/31/24 123) Walk 10 Feet - CARE Score: 6 (11/11/241217) Walk 50 Feet with Two Turns LTG: Independent Walk 50 Feet with Two Turns - CARE Score: 1 (10/31/24 123) Walk 50 Feet with Two Turns - CARE Score: 6 (11/11/241217) Walk 150 Feet LTG: Supervision or touching assistance Walk 150 Feet - CARE Score: 88 (10/31/24 123) Walk 150 Feet - CARE Score: 4 (11/11/241217) Walking 10 Feet on Uneven Surfaces LTG: Independent Walking 10 Feet on Uneven Surfaces - CARE Score: 88 (10/31/24 123) Walking 10 Feet on Uneven Surfaces - CARE Score: 4 (11/11/241217) 1 Step (Curb) LTG: Independent 1 Step (Curb) - CARE Score: 88 (10/31/24 123) 1 Step (Curb) - CARE Score: 4 (11/11/24 121) 4 Steps LTG: Independent 4 Steps - CARE Score: 88 (10/31/24 1236) 4 Steps - CARE Score: 4 ([id number]) 12 Steps LTG: Supervision or touching assistance 12 Steps - CARE Score: 88 (10/31/24 1236) 12 Steps- CARE Score: 88 (11/11/24 121) Picking Up Object LTG: Independent Picking Up Object - CARE Score: 88 (10/31/24 1236) Picking Up Object - CARE Score: 6 (11/11/24 1218) Wheel 50 Feet with Two Turns LTG: Not applicable Wheel 50 Feet with Two Turns - CARE Score: 1 (10/31/24 1236) Wheel 50 Feet with Two Turns - CARE Score: 1 (11/11/24 121) Wheel 150 Feet LTG: Not applicable Wheel 150 Feet - CARE Score: 1 (10/31/24 123) Wheel 150 Feet - CARE Score: 1 (11/11/241217) Additional Goals & Status: N/A PT Short Term Goal 1: Focus: Car Transfer Level of Assistance to Meet Short Term Goal: Supervision Details: 11/11: extended Expected Achievement Date: 11/18/2024 Goal Status: Partially Achieved PT Short Term Goal 2: Focus: Walking Level of Assistance to Meet Short Term Goal: Incidental touching Expected Achievement Date: 11/04/2024 Status: Achieved Walking Distance: 150 feet PT Short Term Goal 3: Focus: Steps Level of Assistance to Meet Short Term Goal: Incidental touching Expected Achievement Date: 11/04/2024 Status: Achieved Number of Steps: 4 ANH MEDRANO, PT 11/11/2024 * PT Treatment Note - Anh Medrano PT - 11/11/2024 11:15 AM EDT PT Treatment Patient Name: Charles Blandon Patient Birthdate: 1955 Patient Subjective Report - Pt in bed upon arrival, pleasant and agreeable to therapy. Spouse, Fabiana, present at bedside. DANIEL drain intact Pain Assessment Pain Context: Therapy Assessment Prior to Treatment (11/11/24 1119) Pain Assessment: NRS 0-10 (11/11/24 1119) Pain Score: 8 - Severe Pain (11/11/24 1119) Pain Severity - NRS (Calculated): Severe (11/11/241118) Pain Type: Acute pain (11/11/241118) Pain Location: Back (11/11/241118) Pain Orientation: Lower (11/11/241118) Pain Descriptors: Aching (11/11/241118) Pain Onset: Ongoing (11/11/241118) Pain Frequency: Constant/continuous (11/11/241118) Aggravating Factors: Activity Duration (11/11/241118) Pre-therapy pain intervention required: Nurse notified, Patient expressed pain is tolerable/able toproceed (11/11/241118) Pain Interventions Education Provided: Patient (11/11/241118) Non-Pharmacologic Pain Interventions: Distractions, Position/Reposition, Rest (11/11/241118) Emotional/Spiritual Pain Interventions: Empathetic Discussion (11/11/241118) Pain Consults Initiated or Completed: Rehab (11/11/241118) Overall Cognitive Status: Impairments impacting function Comment: Impaired memory, mild agitation at times when unsure of instuction or with repeated instruction, easy to re-direct and apologetic. Bed Mobility: Performed on bed and Short sit to - from supine Bed Mobility Level of Assistance: Modified Independent Bed Mobility Comment: Pt completes supine > EOB sitting at mod I. While EOB, pt able to don shoes with set-up assist. Surface: Indoor, Smooth surface and Even surface Assistive Device: RW Ambulation Level of Assistance: Modified Independent and Close Supervision Distance (feet): 200 Gait Analysis: Pt ambulates ~200 ft with RW and ambulates from therapy gym > room (150 ft +) Edvin for household distances, for community distance 2/2 mild truncal sway and increased QUESADA. Pt with once instance of toe catching while ambulating from gym to room, however, able to regain balance without physical assist. Pt additionally walks household distances in therapy gym to complete stair training with same levelof assist as above. Following first walk, pt reports significant dizziness, however, BP WNL 128/85 mmHg, spouse reportsdizziness has been ongoing since being in hospital Rails: Left Stairs Level of Assistance: Close Supervision Stairs Height of Step: 6-inch Stair Analysis: Pt negotiates 4 6 steps using unilateral support on LHR, CS for balance monitoring. Pt ascends/descends forward using step to pattern alternating leading LE Number of Steps: 4 Transfer to 1: Wheelchair Transfer from 1: Bed Technique 1: Stand pivot Transfer Level of Assistance 1: Close Supervision Trials/Comments1: Pt completes bed > w/c SPT without device and w/ CS for balance monitoring d/tcompletion without device. No LOB noted Transfer to 2: Stand Transfer from 2: Sit Technique 2: Sit to stand and Stand to sit Transfer Level of Assistance 2: Modified Independent Trials/Comments 2: STS transfers with RW at mod I Activity Type: Standing Activity Endurance: Fair Activity comment: Therapeutic rest used frequently throughout session to manage fatigue/dizziness and facilitate performance. Therapeutic Activities and Neuromuscular Re-education: Pt picks up object from floor while standingwith tie presser at mod I Between ambulation bouts, pt completes the following exercises sitting up in w/c for orthostatic hypotension mgmt: ankle pumps, MIP, LAQ Skin was assessed under all device(s) for pressure point(s) and any skin changes: Yes Skin Issues Narrative: All visible bony prominences inspected throughout session and no changes in skin integrity noted PT Treatment Outcomes:: Goals met for this session, Improved transfer ability noted, Improving overall functional endurance noted, Patient is progressing toward STG, Improved ambulation performance and Patient tolerated session fair PT Summary:: Session focused on QI assessment for weekly note. Pt and pt's spouse declined practicing car transfer despite PT recs. Pt able to progress to mod I for transfers and household distance ambulation this date. Pt remained up in w/c, with safety measures in place, call light in reach, and w/ no reports of further needs. PT Summary Plan of Care: Continue with current plan of care Pain Evaluation and Follow-up Response to Therapy Interventions: Improved activity tolerance, Improved mobility, Improved functional status (11/11/24 1155) Pain Reassessment: 8 (11/11/24 115) Nursing notified of patient's pain assessment: Primary Nurse (11/11/24 802) Therapy Minutes Individual Concurrent Co-Treat Individual (PT) Time In : 1115 Time Out: 1200 Total Time with Patient (Min): 45 min ANH MEDRANO, PT 11/11/2024 * Plan of Care - Richard Dickerson RN - 11/11/2024 10:42 AM EDT Problem: Infection Goal: Absence of infection and prevention of transmission during hospitalization Outcome: Progressing Flowsheets (Taken 11/11/2024 1042) Absence of infection and prevention of transmission during hospitalization: Assess and monitor for signs and symptoms of infection and vital signs Monitor lab/diagnostic results Monitor all insertion sites i.e., indwelling lines, tubes and drains, obtain order to remove devicewhen no longer clinically necessary * OT Weekly Progress Note - Samuel Kaiser OT - 11/11/2024 9:49 AM EDT Occupational Therapy Weekly Progress Note Patient Name: Charles Blandon Patient Birthdate: 1955 OT Current Functional Status: Patient is showing progress during rehab stay at [facility]. Current limitations and barriers include endurance and strength. Patient would benefit from continued OT services to address deficits listed above to help assist toPLOF. DME recommended: has purchased tub wall handle/grab bar, and raised toilet seat with arm rests Therapy Recommendation at Discharge: HH OT Family Training Needs: Completed, is here daily for ongoing FT. plans to assist with ADLs. Home Set Up: Pt lives c spouse in 2STH c 3 JESUS c unilateral rail. Pt's bedroom is on the 2nd floor c 15 steps up with a full bathroom that features a tub/shower combo, standard toilet and grab bars. Pt and spouse reports that they bought a recliner chair that will be set up on ground floor, pt can use half bathroom on 1st floor. Home also features a basement that pt does not access. Skin assessment: No acute changes noted in skin integrity along bony prominences including B heels,lumbar/sacral region, and along/under orthotics/braces. Patient is performing the following with: Feeding: Set up Oral Hygiene: Supervision Toileting: Min A Bathing: Min A UB Dressing: Min A LB Dressing: Min A Footwear: Min A Bed Mobility: Mod I Transfers: Supervision for STS and stand pivot transfers with RW Facilitating Factors in Goal Achievement: Patient motivation, Patient understanding and knowledge, Support of significant other, Support of family or caregiver, Improved strength, Improved functionalmobility and Improved function Barriers to Goal Achievement: Diminished endurance and Pain Date Last Assessed: 11/11/2024 Patient needs assistance with the following activities: Activities of daily living and Going out inthe community DME Recommendations Common Therapy DME: Tub Transfer Bench Tub Transfer Bench: Standard Tub Transfer Bench CARE Score David: 6: Independent. [place] provides no assistance with tasks. A device may or may not have been used. 5: Set-up or clean-up assistance. [place] sets up or cleans up, but does not assist with tasks. [place] may have assisted prior to or following the activity. 4: Supervision or touching assistance. [place] provides verbal cues or touching/steadying or contactguard assistance. Assistance may be provided throughout the activity or intermittently. 3: Partial/moderate assistance. [place] does less than half the effort. [place] lifts, holds, or supports trunk or limbs, but provides less than half the effort. 2: Substantial/maximal assistance. [place] does more than half the effort. [place] lifts or holds trunk or limbs, and provides more than half the effort. 1: Dependent. [place] does all of the effort, or the assistance of two or more helpers is required for the patient to complete the activity. -: Inconsistent or incomplete documentation Activity not attempted values: 7: Patient refused 9: Not applicable - Not attempted and the patient did not perform this activity prior to the current illness, exacerbation, or injury. 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 Status on Admission Current Status Eating LTG: Independent Eating - CARE Score: 5 (10/31/241253) Eating - CARE Score: 5 (11/11/24956) Oral Hygiene LTG: Independent Oral Hygiene - CARE Score: 5 (10/31/241253) Oral Hygiene - CARE Score: 6 (11/11/24956) Toileting Hygiene LTG: Independent Toileting Hygiene - CARE Score: 1 (10/31/241253) Toileting Hygiene - CARE Score: 3 (11/11/24956) Shower/Bathe Self LTG: Supervision or touching assistance Shower/Bathe Self - CARE Score: 2 (10/31/241253) Shower/Bathe Self - CARE Score: 3 (11/11/24956) Upper Body Dressing LTG: Independent Upper Body Dressing - CARE Score: 3 (10/31/241253) Upper BodyDressing - CARE Score: 3 (11/11/24956) Lower Body Dressing LTG: Independent Lower Body Dressing - CARE Score: 1 (10/31/241253) Lower BodyDressing - CARE Score: 3 (11/11/24956) Putting On/Taking Off Footwear LTG: Independent Putting On/Taking Off Footwear - CARE Score: 2 (10/31/241253) Putting On/Taking Off Footwear - CARE Score: 3 (11/11/24956) Roll Left and Right LTG: Independent Roll Left and Right - CARE Score: 2 (10/31/241253) Roll Left and Right - CARE Score: 6 (11/11/24956) Sit to Lying LTG: Independent Sit to Lying - CARE Score: 2 (10/31/241253) Sit to Lying - CARE Score: 6 (11/11/24956) Lying to Sitting on Side of Bed LTG: Independent Lying to Sitting on Side of Bed - CARE Score: 2 (10/31/241253) Lying to Sitting on Side of Bed - CARE Score: 6 (11/11/24956) Sit to Stand LTG: Independent Sit to Stand - CARE Score: 3 (10/31/241253) Sit to Stand - CARE Score: 4 (11/11/24956) Chair/Gsg-co-Zzxwi Transfer LTG: Independent Chair/Rbz-nv-Ssulg Transfer - CARE Score: 3 (10/31/241253) Chair/Ljt-eo-Hmtum Transfer - CARE Score: 4 (11/11/24956) Toilet Transfer LTG: Independent Toilet Transfer - CARE Score: 3 (10/31/241253) Toilet Transfer - CARE Score: 4 (11/11/24956) Additional Goals & Status: N/A OT Short Term Goal 1: Focus: Chair/Bed Transfer Level of Assistance to Meet Short Term Goal: Incidental touching Expected Achievement Date: 11/04/2024 Goal Status: Achieved OT Short Term Goal 2: Focus: Lower Body Dressing Level of Assistance to Meet Short Term Goal: Physical assistance 50%-74% Expected Achievement Date: 11/04/2024 Goal Status: Achieved OT Short Term Goal 3: Focus: Shower/Bathe Level of Assistance to Meet Short Term Goal: Physical assistance 25%-49% Expected Achievement Date: 11/11/2024 Goal Status: Partially Achieved OT Short Term Goal 4: Focus: Toileting Hygiene Level of Assistance to Meet Short Term Goal: Set-up/Clean-up Expected Achievement Date: 11/18/2024 Goal Status: Partially Achieved OT Short Term Goal 5: Focus: Roll Left and Right Level of Assistance to Meet Short Term Goal: Supervision Expected Achievement Date: 11/11/2024 Goal Status: Achieved OT Short Term Goal 6: Focus: Lower Body Dressing Level of Assistance to Meet Short Term Goal: Incidental touching Expected Achievement Date: 11/18/2024 Goal Status: Established SAMUEL KAISER OT 11/11/2024 * OT Treatment Note - Samuel Kaiser OT - 11/11/2024 9:00 AM EDT Occupational Therapy Treatment Patient Name: Charles Blandon Patient Birthdate: 1955 Patient Subjective Report - Patient laying in bed upon arrival, agreeable to OT session. Pain Assessment Pain Context: Therapy Assessment Prior to Treatment (11/11/24903) Pain Assessment: NRS 0-10 (11/11/24903) Pain Score: 3 - Mild Pain (11/11/24903) Pain Severity - NRS (Calculated): Mild (11/11/24903) Pain Type: Acute pain (11/11/24903) Pain Location: Abdomen (11/11/24903) Pain Descriptors: Aching (11/11/24903) Pain Onset: Ongoing (11/11/24903) Pain Frequency: Constant/continuous (11/11/24903) Aggravating Factors: Activity Duration, Positioning (11/11/24903) Functional Impact: None (11/11/24903) Pre-therapy pain intervention required: Patient expressed pain is tolerable/able to proceed (11/11/24903) Pain Interventions Education Provided: Patient (11/11/24903) Non-Pharmacologic Pain Interventions: Distractions, Exercise/Activity (11/11/24903) Emotional/Spiritual Pain Interventions: Empathetic Discussion (11/11/24903) ADL Status: Grooming: Close Supervision Grooming Where Assessed: Standing at sink Grooming Comments: Close supervision for oral hygiene standing at sink, no set up required Bed, Chair, Wheelchair Transfer: Close Supervision Bed/Chair Transfer to: Stand Bed/Chair Transfer from: Wheelchair Bed/Chair Transfer Technique: Sit to stand Bed/Chair Transfer Status: With stand by assist Assistive Devices Used: Walker Bed/Chair Transfer Comments: Patient with good push off from WC and grabbing onto walker for safe STS transfer Bed Mobility: Short sit to - from supine Bed Mobility Level of Assistance: Modified Independent Bed Mobility Comment: Patient at Mod I for supine <> sit transfer from regular flat bed and hospital bed with head of bed elevated OT Therapeutic Activity: Therapeutic Exercise: Patient challenged with SciFit exercises for improved overall strengthening and endurance. Patient able to tolerate 1.5 minute x 3 segments of SciFit exercises on level 1. Patient challenged with BUE exercises with 2lb weight. Patient completes 10 reps x 6 sets of exercises for shoulder presses, chest presses, and bicep curls. Patient with good tolerance to BUE exercises, but require moderate chronic back pain during exercises. Therapeutic Activity: Patient challenged with activity for functional mobility while picking up gonzalez bags off of therapy gym floor with use of tie presser. Patient retrieved 8 gonzalez bags during functionalmobility task. Patient with good balance, with only 1 slight LOB d/t not holding onto RW with both hands during mobility. Patient able to self correct LOB. Patient able to complete functional mobility with close supervision. Endurance: Patient able to tolerate within household distances of walking in therapy gym with use of RW, without significant fatigue. Patient required rest break and use of pursed lip breathing aftersegment for recovery and improved breathing. Patient challenged with 10 STS transfers in a row to promote endurance, BLE strength, and overall transfer performance. Treatment, Outcomes and Plan: OT Narrative:: OT session focused on endurance, strengthening, and functional mobility for improvedindependence and return to PLOF. Patient left laying in bed with all items within reach. OT Treatment Outcomes:: Patient tolerated treatment well, Safety device reapplied, Improved ADL performance, Increased strength or muscular endurance (comment on location), Improved ability to perform functional transfers and Improved overall functional endurance, reduced rest frequency OT Summary Plan of Care: Continue with current plan of care Pain Evaluation and Follow-up Pain Reassessment: 5 (11/11/24 1026) Nursing notified of patient's pain assessment: Primary Nurse (11/11/24 1026) Therapy Minutes Individual Concurrent Co-Treat Individual (OT) Time In : 0900 Time Out: 1030 Total Time with Patient (Min): 90 min SAMUEL KAISER OT 11/11/2024 * Plan of Care - Nikkie Durham RN - 11/10/2024 7:31 PM EDT Problem: Knowledge Deficit Goal: Patient and/or family demonstrate readiness to learn Outcome: Progressing Flowsheets (Taken 11/10/2024 1930) Patient and/ or family demonstrates readiness to learn: Assess the patient's and/or family's understanding and ability to learn Identify learning needs, preferences, skill level and resources available Address any barriers to learning * OT Treatment Note - Keesha Barba OT - 11/10/2024 1:45 PM EDT Occupational Therapy Treatment Patient Name: Charles Blandon Patient Birthdate: 1955 Patient Subjective Report - FOLLOWING ALL PRX THROUGHOUT: -R UE IV RUNNING START OF SESSION; PICC LINE INTACT AAT -R SIDE DANIEL DRAIN IN PLACE/INTACT AAT -PROTECTIVE PRX/MASK DONNED AAT Pt SUPINE IN BED/HOB elevated upon arrival and EOS, all needs met/call wright in reach/alarm in place Spouse present throughout I've done a lot of walking... Fabiana walked me all the way down to the front and back Pain Assessment Pain Context: Therapy Assessment Prior to Treatment (11/10/24 1345) Pain Assessment: NRS 0-10 (11/10/24 1345) Pain Score: 0 - No pain (11/10/24 1345) Pain Severity - NRS (Calculated): No pain (11/10/24 1345) ADL Status: Toileting: Maximal Assistance Toileting Where Assessed: Toilet and Bedside commode Toilet Comments: MAX A FROM SPOUSE; BSC FRAME, GRAB BARS/RW USE; INCONTINENCE OF BOWEL/CONTINENCE OF BOWEL; SEE ADL TRAINING FOR MORE DETAILS ON RECOMMENDATIONS/CUES REQUIRED FROM OT Upper Body Dressing Comments: NT Dressing Lower Body: Maximal Assistance Lower Body Dressing Where Assessed: Sitting in chair and Standing Lower Body Dressing Comments: MAX A PROVIDED BY SPOUSE; RW IN FRONT FOR SAFETY; NO LOB NOTED Other Lower Body Dressings: Yes Sock Level of Assistance: Maximal Assistance (MAX A PROVIDED BY SPOUSE) Toilet Transfer: Close Supervision and Contact Guard Toilet Transfer to: Raised toilet seat with rails Toilet Transfer Technique: Sit to stand and Ambulatory Toilet Transfers Comments: SBA PROVIDED BY SPOUSE; NEEDS CUES FROM OT TO PROVIDE CGA WITH PATIENT UNSTEADY WITH REGULAR SOCKS ON DESPITE CUES TO USE NONSLIP FOOTWEAR FOR FALLS PREVENTION; RW USE, BSCFRAME USE; NO LOB NOTED Bed, Chair, Wheelchair Transfer: Close Supervision and Contact Guard Bed/Chair Transfer Technique: Sit to stand and Ambulatory Assistive Devices Used: Walker Bed/Chair Transfer Comments: WITH SETUP UP RW AND SBA-CGA REQUIRED FOR STS/AMBULATION WITHIN ROOM WITH INCREASED SAFETY CONCERNS D/T URGENCY OF TOILET NEEDS Standing Assist: Close Supervision ADL Training: ADL Training Narrative: OT RECOMMENDING BSC USE D/T PATIENT URGENCY; SPOUSE AND PATIENT DECLINE/SOMEWHAT AGITATED; OT RECOMMENDING NONSLIP FOOTWEAR AND EMPHASIS ON FALLS PREVENTION; INITIALLY, PATIENT /SPOUSE RESISTANT, BUT LATER VERBALIZE UNDERSTANDING OF FALLS/INJURY RISK WITH REGULAR SOCKS INSTEAD OF NONSLIP FOOTWEAR ON SMOOTH TILE SURFACE OF IRF ROOM Bed Mobility: Performed on bed, Short sit to - from supine and Adaptive equipment needed Bed Mobility Level of Assistance: Modified Independent Bed Mobility Comment: MOD I FOR TRANSFER TO/FROM EOB TO/FROM SUPINE IN BED/HOB ELEVATED OT Therapeutic Activity: Therapeutic Exercise: 2 LB WT USED, SITTING UP IN BED FOR COMPLETION OF: -BICEP CURLS/ELBOW FLEX -PUNCHES/ELBOW EXT -FOREARM SUPINATION/PRONATION -WRIST FLEX/EXT -SHOULDER IR/ER X15 REPS, X2 SETS COMPLETED Extra time for slow pace, rest breaks required ADDRESSING STRENGTH/ENDURANCE FOR ADLS/TRANSFERS Treatment, Outcomes and Plan: OT Narrative:: PATIENT FAIR TOLERANCE OF/ENGAGEMENT IN SESSION FOCUSED ON STRENGTH, ENDURANCE FOR ADLS/TRANSFERS; GROSSLY SBA-CGA FOR TRANSFERS/MOB WITH CUES FOR SAFETY NEEDED, RW USE; MAX A FOR ADL TASKS PROVIDED BY SPOUSE; S/P INCONTINENCE/CONTINENCE OF BOWEL; HAND OFF EOS TO NURSING OT Treatment Outcomes:: Safety device reapplied, Patient tolerated treatment fairly, Compensatory strategies effectively used, Precautions maintained throughtout session, Medical issues limiting patient progress and Cues needed for safety OT Summary Plan of Care: Continue with current plan of care Pain Evaluation and Follow-up Pain Reassessment: 0, No pain (11/10/241428) Nursing notified of patient's pain assessment: Not indicated - pain score 2 or less (11/10/241428) Therapy Minutes Individual Concurrent Co-Treat Individual (OT) Time In : 1345 Time Out: 1430 Total Time with Patient (Min): 45 min KEESHA BARBA, OT 11/10/2024 * PT Treatment Note - Makenzie Emmanuel, PT - 11/10/2024 8:15 AM EDT PT Treatment Patient Name: Charles Blandon Patient Birthdate: 1955 Patient Subjective Report - Pt is supine in bed, agreeable to therapy session. Pt reports that he is feeling alright Pain Assessment Pain Context: Therapy Assessment Prior to Treatment (11/10/24814) Pain Assessment: NRS 0-10 (11/10/24814) Pain Score: 8 - Severe Pain (11/10/24814) Pain Severity - NRS (Calculated): Severe (11/10/24814) Pain Type: Acute pain, Surgical pain (11/10/24814) Pain Descriptors: Throbbing, Aching (11/10/24814) Pre-therapy pain intervention required: Nursing medicated patient - see MAR (11/10/24814) Pain Interventions Education Provided: Patient (11/10/24814) Non-Pharmacologic Pain Interventions: Distractions, Exercise/Activity (11/10/24814) Emotional/Spiritual Pain Interventions: Emotional Support (11/10/24814) Pain Consults Initiated or Completed: Rehab (11/10/24814) Bed Mobility: Performed on bed and Short sit to - from supine Bed Mobility Level of Assistance: Modified Independent Surface: Smooth surface and Carpet Assistive Device: RW Ambulation Level of Assistance: Close Supervision and Contact Guard Distance (feet): 360 (+ 65, 105) Gait Analysis: Pt demos a fast camille with a reciprocal pattern. Pt with decreased safety with negotiating carpet, with back legs catching and flipping edge of rug. Therapist cues pt to stop and educated pt on safety with walker and throw rugs. Pt becoming agitated with cues for safety, states he does not have throw rugs. Pt did have one LOB with ambulation, self corrected. Therapist also educated pt to stand for 10-15 seconds before walking to monitor symptoms for orthostatic hypotension. Pt with mild agitation, stating I'm fine, but does comply Rails: Right Stairs Level of Assistance: Contact Guard and Minimal Assistance Stairs Height of Step: 6-inch Stair Analysis: Pt alternates between a reciprocal and step to pattern, uses shukri UEs on rails with cues Number of Steps: 8 Transfer to 1: Wheelchair Transfer from 1: Bed Technique 1: Sit to stand Transfer Level of Assistance 1: Close Supervision and Contact Guard Transfer to 2: Stand Transfer from 2: Wheelchair Technique 2: Sit to stand Transfer Level of Assistance 2: Distant Supervision and Close Supervision Transfer to 3: Stand Transfer from 3: Chair without arms Technique 3: Sit to stand Transfer Level of Assistance 3: Contact Guard Standing Position: Pt performed the following shukri LE resistance exercises standing at the walker: HS curls, hip abduction, alternating marches, heel lifts x 10 reps ea RLE: Full weight-bearing LLE: Full weight-bearing RUE: Full weight-bearing LUE: Full weight-bearing PT Treatment Outcomes:: Patient tolerated treatment well, Patient is progressing toward STG, Improved ambulation performance, Improved balance and coordination, Improving overall functional endurancenoted and Increasing strength PT Summary:: Pt tolerated full session with no adverse effects. Focus of session was placed on gaittraining, transfer training, stairs, LE strength, functional activity tolerance. Pt was left in w/cat end of session with seat belt and pull away alarms engaged, all needs met, call light in reach. PT Summary Plan of Care: Continue with current plan of care Pain Evaluation and Follow-up Response to Therapy Interventions: Improved mobility, Improved functional status (11/10/24 09) Pain Reassessment: 8 (11/10/24899) Nursing notified of patient's pain assessment: Primary Nurse (11/10/24899) Therapy Minutes Individual Concurrent Co-Treat Individual (PT) Time In : 814 Time Out: 899 Total Time with Patient (Min): 45 min MAKENZIE EMMANUEL, PT 11/10/2024 * Plan of Care - Que Rubio RN - 11/10/2024 7:55 AM EDT Problem: Fall Safety: [place] Precautions Goal: Free from fall injury Outcome: Progressing Flowsheets (Taken 11/09/20242109 by Aniyah Howell, RN) Free from fall injury: Perform fall risk assessment and identifiers in place (as applicable) Put call light within reach and teach how to call for assistance, respond to call light immediately Bed low, locked 2 side rails Lighting appropriate Use of bed/chair alarm Encourage patient to wear glasses and hearing aids and to use walking aids when ambulating, non skid socks Safe mobility and activity (this could include chair safety) Fall/safety education for patient/family/SO Assess for environmental or other risks * Plan of Care - Aniyah Howell RN - 11/09/2024 9:10 PM EDT Problem: Fall Safety: [place] Precautions Goal: Free from fall injury Outcome: Progressing Flowsheets (Taken 11/09/20242109) Free from fall injury: Perform fall risk assessment and identifiers in place (as applicable) Put call light within reach and teach how to call for assistance, respond to call light immediately Bed low, locked 2 side rails Lighting appropriate Use of bed/chair alarm Encourage patient to wear glasses and hearing aids and to use walking aids when ambulating, non skid socks Safe mobility and activity (this could include chair safety) Fall/safety education for patient/family/SO Assess for environmental or other risks Problem: Potential for Compromised Skin Integrity Goal: Skin integrity is maintained or improved Outcome: Progressing Flowsheets (Taken 11/09/20242109) Skin Integrity is Maintained or Improved: Assess skin and skin risk for breakdown Relieve pressure to bony prominences, avoid shearing Appropriate use of moisturizers for skin Keep skin clean and dry * Plan of Care - Que Rubio RN - 11/09/2024 11:48 AM EDT Problem: Fall Safety: [place] Precautions Goal: Free from fall injury Outcome: Progressing Flowsheets (Taken 11/09/2024124 by Marly Aly RN) Free from fall injury: (3 side rails up) Perform fall risk assessment and identifiers in place (as applicable) Frequent rounding/monitoring Lighting appropriate Use of bed/chair alarm Bed low, locked 2 side rails Put call light within reach and teach how to call for assistance, respond to call light immediately Offer frequent toileting Toilet magnet in place ([facility] Only) Encourage patient to wear glasses and hearing aids and to use walking aids when ambulating, non skid socks Safe mobility and activity (this could include chair safety) Assess for environmental or other risks * Plan of Care - Marly Aly RN - 11/09/2024 1:27 AM EDT Problem: Infection Goal: Absence of infection and prevention of transmission during hospitalization Outcome: Progressing Flowsheets (Taken 11/09/2024124) Absence of infection and prevention of transmission during hospitalization: Assess and monitor for signs and symptoms of infection and vital signs Monitor lab/diagnostic results Monitor all insertion sites i.e., indwelling lines, tubes and drains, obtain order to remove devicewhen no longer clinically necessary Note: Afebrile / clear urine / tolerating antibiotics without difficulty Problem: Fall Safety: [place] Precautions Goal: Free from fall injury Outcome: Progressing Flowsheets (Taken 11/09/2024 0125) Free from fall injury: (3 side rails up) Perform fall risk assessment and identifiers in place (as applicable) Frequent rounding/monitoring Lighting appropriate Use of bed/chair alarm Bed low, locked 2 side rails Put call light within reach and teach how to call for assistance, respond to call light immediately Offer frequent toileting Toilet magnet in place ([facility] Only) Encourage patient to wear glasses and hearing aids and to use walking aids when ambulating, non skid socks Safe mobility and activity (this could include chair safety) Assess for environmental or other risks Note: Cooperative with safety plan of care * Plan of Care - Rupal Griffith RN - 11/08/2024 6:26 PM EDT Problem: Fall Safety: [place] Precautions Goal: Free from fall injury Outcome: Progressing Flowsheets (Taken 11/07/2024 1820) Free from fall injury: Perform fall risk assessment and identifiers in place (as applicable) Frequent rounding/monitoring Lighting appropriate Put call light within reach and teach how to call for assistance, respond to call light immediately Use of bed/chair alarm Encourage patient to wear glasses and hearing aids and to use walking aids when ambulating, non skid socks Safe mobility and activity (this could include chair safety) Offer frequent toileting Bed low, locked 2 side rails Fall/safety education for patient/family/SO Problem: Pain Goal: Patient's Pain/Discomfort is Manageable Outcome: Progressing Flowsheets (Taken 11/07/2024 0218 by Marly Aly, RN) Patient's Pain/Discomfort is Manageable: Assess pain level Include patient/family/caregiver in decisions related to pain management Provide Emotional/Spiritual Support Administer medications as ordered Offer non-pharmocological pain management interventions Reassess patient's response and tolerance to discomfort * PT Treatment Note - Jessica Kinsey, PT - 11/08/2024 9:00 AM EDT PT Treatment Patient Name: Charles Blandon Patient Birthdate: 1955 Patient Subjective Report - Handoff from OT in therapy gym, pt endorses some nausea. Provided rubia bhavik. Pt agreeable to continue therapy. Pt's spouse, Fabiana, present for session. Pain Assessment Pain Context: Therapy Assessment Prior to Treatment (11/08/24899) Pain Assessment: NRS 0-10 (11/08/24899) Pain Score: 7 - Severe Pain (11/08/24899) Pain Severity - NRS (Calculated): Severe (11/08/24899) Pain Type: Chronic pain (11/08/24899) Pain Location: Back (11/08/24899) Pain Orientation: Mid, Lower (11/08/24899) Pain Descriptors: Aching, Discomfort (11/08/24899) Pre-therapy pain intervention required: Patient expressed pain is tolerable/able to proceed, Nurse notified (11/08/24899) Pain Interventions Non-Pharmacologic Pain Interventions: Exercise/Activity, Distractions (11/08/24899) Emotional/Spiritual Pain Interventions: Emotional Support (11/08/24899) Overall Cognitive Status: Impairments impacting function Comment: Impaired memory, mild agitation at times when unsure of instuction or with repeated instruction, easy to re-direct and apologetic. Surface: Even surface and Indoor Assistive Device: RW Ambulation Level of Assistance: Distant Supervision Distance (feet): 180 Gait Analysis: 180 ft x3, 47 ft x2 w/c<>stairs with RW and supervision to monitor balance andexertion. Pt tilted partially back in chair to manage pain between bouts. Pt demos instances of mild unsteadiness, appropriate step length/height, mild toe-out bilaterally. Rails: Left Assistive Device: No device Stairs Level of Assistance: Close Supervision Stairs Height of Step: 6-inch Stair Analysis: 4 stairs with BUE support on L railing and SBA from PT to monitor balance. Pt sits at top of chair due to fatigue from ambulating to/from stairs. Number of Steps: 4 Technique 1: Sit to stand and Stand to sit Transfer Level of Assistance 1: Distant Supervision Trials/Comments1: Sit<>stand with RW and supervision to monitor balance Seated Position: Pt seated in w/c completing 3x15 of the following exercises to facilitate strengthneeded for functional mobility: ankle DF, calf raises, LAQ with 2lb weights, marching ([id number]), hscurls with red TB, hip abduction with red TB. Verbal cues for technique and full ROM throughout. Activity comment: Patient requiring therapeutic rest breaks throughout session to manage fatigue and promote muscle recovery. PT Treatment Outcomes:: Patient tolerated session fair, Pain limiting patient progress and Medical issues are limiting patient progress PT Summary:: PT session focusing on seated strength training, gait, stairs, and endurance. Patient returned to room at end of session seated in w/c with all necessities in reach. Spouse present. PT Summary Plan of Care: Continue with current plan of care Pain Evaluation and Follow-up Pain Reassessment: 8 (11/08/24 1028) Nursing notified of patient's pain assessment: Primary Nurse (11/08/24 1028) Therapy Minutes Individual Concurrent Co-Treat Individual (PT) Time In : 0900 Time Out: 1030 Total Time with Patient (Min): 90 min Missed Minutes : 0 JESSICA KINSEY, PT 11/08/2024 * OT Treatment Note - Samuel Kaiser OT - 11/08/2024 7:30 AM EDT Occupational Therapy Treatment Patient Name: Charles Blandon Patient Birthdate: 1955 Patient Subjective Report - Patient laying in bed upon arrival, agreeable to OT session. Pain Assessment Pain Context: Therapy Assessment Prior to Treatment (11/08/24732) Pain Assessment: NRS 0-10 (11/08/24732) Pain Score: 8 - Severe Pain (11/08/24732) Pain Severity - NRS (Calculated): Severe (11/08/24732) Pain Type: Acute pain (11/08/24732) Pain Location: Abdomen (11/08/24732) Pain Orientation: Mid, Lower (11/08/24732) Pain Descriptors: Aching, Discomfort (11/08/24732) Pain Onset: Ongoing (07/25/25 0733) Pain Frequency: Constant/continuous (11/08/24732) Aggravating Factors: Activity Duration (11/08/24732) Pre-therapy pain intervention required: Patient expressed pain is tolerable/able to proceed (11/08/24732) Pain Interventions Education Provided: Patient (11/08/24732) Non-Pharmacologic Pain Interventions: Distractions, Exercise/Activity (11/08/24732) Emotional/Spiritual Pain Interventions: Empathetic Discussion (11/08/24732) Vital Signs BP: 102/64 (11/08/24808) MAP (mmHg): 76.67 (11/08/24808) BP Location: Left arm (11/08/24808) BP Method: Automatic (11/08/24808) Patient Position: Sitting (after standing with symptoms of dizziness) (11/08/24808) ADL Status: Eating: Setup Eating Where Assessed: Sitting at table Feeding Comments: Set up required for opening of containers Grooming Comments: assistance with shaving with electric razer d/t patient reporting not wanting to complete IND Bathing: Minimal Assistance Bathing Where Assessed: Sponge bath seated in chair Bathing Comments: Min A for LB bathing of buttocks and back, patient requires set up for other washing/dryer task Toileting: Minimal Assistance Toileting Where Assessed: Toilet Toilet Comments: Min A for toilet hygiene after BM, patient able to complete LB clothing managementwith CGA Dressing Upper Body: Minimal Assistance Upper Body Dressing Where Assessed: Sitting in chair Upper Body Dressing Comments: Min A for UB dressing d/t patient requesting help from because of alway hitting elbows on wall during UB dressing, patient getting frustrated with UB dressing Dressing Lower Body: Contact Guard Lower Body Dressing Where Assessed: Sitting in chair Lower Body Dressing Comments: CGA for threading of BLEs into pants and underwear and CGA for pulling pants over hips in standing Toilet Transfer: Close Supervision Toilet Transfer to: Standard toilet Toilet Transfer From: Wheelchair Toilet Transfer Technique: Stand pivot Toilet Transfers Comments: Stand pivot with use of grab bars from wheelchair to standard toilet Shower Transfer: Contact Guard Shower Transfer to: Shower seat with back Shower Transfer From: Stand Shower Transfer Technique: Sit to stand and Ambulatory Shower Transfers Comments: CGA for shower transfer, walking into walk-in shower with RW, no threshold this date Bed, Chair, Wheelchair Transfer: Contact Guard Bed/Chair Transfer to: Stand Bed/Chair Transfer from: Wheelchair Bed/Chair Transfer Technique: Sit to stand Bed/Chair Transfer Status: With stand by assist Assistive Devices Used: Walker Bed/Chair Transfer Comments: Patient reports dizziness after stand, therapist cuing to sit down after symptoms of dizziness ADL Training: ADL Training Narrative: Patient's educated on patient's improved performance in LB dressing and bathing tasks. Patient's educated on improving patient's independence by cuing him to try to complete task, but if fatigued, can assist with end of task. understanding of patient's com pletion of ADLs more IND for improved IND and functional endurance. OT Therapeutic Activity: Therapeutic Exercise: Patient challenged with BUE exercises with 2lb weight. Patient completes 10 reps x 6 sets of exercises for shoulder presses, chest presses, and bicep curls. Patient with fair tolerance to BUE exercises, requiring rest breaks between sets d/t fatigue and symptoms of SOB. Patient Education: Patient, therapist, and discussed continued therapy for building endurance for improved functional performance. Patient and family educated on use of energy conservation strategies. Other: reports ordering raised toilet seat with arm rests and tub transfer bench for use at home after discharge. Treatment, Outcomes and Plan: OT Narrative:: OT session focused on ADLs, including showering, dressing, and grooming tasks, and BUE strengthening and overall endurance. Patient required rest breaks throughout session d/t fatigue.Patient left seated in w/c with hand- off to PT. OT Treatment Outcomes:: Safety device reapplied, Patient tolerated treatment well, Improved ADL performance, Improved ability to perform functional transfers, Improved balance and coordination, Increased strength or muscular endurance (comment on location), Improved overall functional endurance, reduced rest frequency, Improved safety awareness and DME discussed with patient OT Summary Plan of Care: Continue with current plan of care Pain Evaluation and Follow-up Pain Reassessment: 7 (11/08/24857) Nursing notified of patient's pain assessment: Primary Nurse (11/08/2442) Therapy Minutes Individual Concurrent Co-Treat Individual (OT) Time In : 07 Time Out: 0900 Total Time with Patient (Min): 90 min SAMUEL KAISER OT 11/08/2024 * Plan of Care - Rupal Griffith RN - 11/07/2024 6:20 PM EDT Problem: Infection Goal: Absence of infection and prevention of transmission during hospitalization Outcome: Progressing Flowsheets (Taken 11/07/2024 0218 by Marly Aly RN) Absence of infection and prevention of transmission during hospitalization: Assess and monitor for signs and symptoms of infection and vital signs Monitor all insertion sites i.e., indwelling lines, tubes and drains, obtain order to remove devicewhen no longer clinically necessary Problem: Fall Safety: [place] Precautions Goal: Free from fall injury Outcome: Progressing Flowsheets (Taken 11/07/2024 1820) Free from fall injury: Perform fall risk assessment and identifiers in place (as applicable) Frequent rounding/monitoring Lighting appropriate Put call light within reach and teach how to call for assistance, respond to call light immediately Use of bed/chair alarm Encourage patient to wear glasses and hearing aids and to use walking aids when ambulating, non skid socks Safe mobility and activity (this could include chair safety) Offer frequent toileting Bed low, locked 2 side rails Fall/safety education for patient/family/SO * OT Treatment Note - Samuel Kaiser OT - 11/07/2024 1:55 PM EDT Occupational Therapy Treatment Patient Name: Charles Blandon Patient Birthdate: 1955 Patient Subjective Report - Patient met laying in bed, after x-ray taken in bed, agreeable to OT session. Pain Assessment Pain Context: Therapy Assessment Prior to Treatment (11/07/24 1357) Pain Assessment: NRS 0-10 (11/07/24 1357) Pain Score: 8 - Severe Pain (11/07/24 1357) Pain Severity - NRS (Calculated): Severe (11/07/24 1357) Pain Type: Acute pain, Chronic pain (11/07/24 1357) Pain Location: Back (11/07/241356) Pain Orientation: Mid, Lower (11/07/241356) Pain Descriptors: Aching, Discomfort (11/07/241356) Pain Onset: Ongoing (11/07/241356) Pain Frequency: Constant/continuous (11/07/241356) Aggravating Factors: Activity Duration (11/07/241356) Functional Impact: None (11/07/241356) Pre-therapy pain intervention required: Patient expressed pain is tolerable/able to proceed (11/07/241356) Pain Interventions Education Provided: Patient (11/07/241356) Non-Pharmacologic Pain Interventions: Distractions, Exercise/Activity (11/07/241356) Emotional/Spiritual Pain Interventions: Empathetic Discussion (11/07/241356) ADL Status: Toileting: Close Supervision Toileting Where Assessed: Toilet Toilet Comments: Standing to void with close supervision Bed, Chair, Wheelchair Transfer: Close Supervision Bed/Chair Transfer to: Stand Bed/Chair Transfer from: Wheelchair Bed/Chair Transfer Technique: Sit to stand Bed/Chair Transfer Status: With stand by assist Assistive Devices Used: Walker Bed Mobility: Short sit to - from supine Bed Mobility Level of Assistance: Modified Independent OT Therapeutic Activity: Therapeutic Exercise: Patient challenged with 2lb weight ball exercises in standing to challenge dynamic standing balance during functional BUE movements. Patient completes 10 reps x 8 sets of weightball exercise with fatigue after each set. Patient educated on use of exercises to improve dynamic standing balance for fall prevention. Patient cues for use of pursed lip breathing, during rest breaks between sets. Exercises were done for trunk rotation, shoulder flexion, diagonal movements, and behind the back rotation for improved UE strength, endurance, and functional performance. Patient challenged with SciFit exercises for improved overall strengthening and endurance. Patient able to tolerate 3 segments of SciFit exercises on level 1, for 1 minute, 30 seconds, and then 1.5 minutes. Endurance: Mobility bedside <> bathroom with supervision with use of RW, Min fatigue at end of segment. Treatment, Outcomes and Plan: OT Narrative:: OT session focused on strengthening, dynamic standing balance, and endurance transfer. Patient left laying in bed with all items within reach. OT Treatment Outcomes:: Safety device reapplied, Patient tolerated treatment well, Improved abilityto perform functional transfers, Improved balance and coordination, Increased strength or muscular endurance (comment on location), Improved overall functional endurance, reduced rest frequency and Improved safety awareness OT Summary Plan of Care: Continue with current plan of care Pain Evaluation and Follow-up Pain Reassessment: 7 (11/07/24 143) Nursing notified of patient's pain assessment: Primary Nurse (11/07/24 143) Therapy Minutes Individual Concurrent Co-Treat Individual (OT) Time In : 1355 Time Out: 1440 Total Time with Patient (Min): 45 min SAMUEL KAISER OT 11/07/2024 * PT Treatment Note - Jessica Kinsey PT - 11/07/2024 8:15 AM EDT PT Treatment Patient Name: Charles Blandon Patient Birthdate: 1955 Patient Subjective Report - Handoff from OT from therapy gym, pt c/o abdominal and back pain. Nursing medicates patient for pain during session. Pain Assessment Pain Context: Therapy Assessment Prior to Treatment (11/07/24814) Pain Assessment: NRS 0-10 (11/07/24814) Pain Score: 8 - Severe Pain (11/07/24814) Pain Severity - NRS (Calculated): Severe (11/07/24 0815) Pain Type: Chronic pain (11/07/24814) Pain Location: Back (11/07/24814) Pain Orientation: Mid, Lower (11/07/24814) Pain Descriptors: Aching (11/07/24 0815) Pain Frequency: Constant/continuous (11/07/24814) Pre-therapy pain intervention required: Nurse notified, Patient expressed pain is tolerable/able toproceed (11/07/24814) Pain Interventions Non-Pharmacologic Pain Interventions: Distractions, Exercise/Activity (11/07/24814) Emotional/Spiritual Pain Interventions: Emotional Support (11/07/24814) Pain Site 2 Pain Assessment Site 2: NRS 0-10 (11/07/24814) Pain Score Site 2: 8 (11/07/24814) Pain Severity - NRS (Calculated): Severe (11/07/24814) Pain Type Site 2: Surgical pain (11/07/24814) Pain Location Site 2: Abdomen (11/07/24814) Pain Orientation Site 2: Mid (11/07/24814) Pain Descriptors Site 2: Sore (11/07/24814) Vital Signs Pulse: 88 (11/07/24814) Heart Rate Source: Monitor (11/07/24814) BP: 100/68 (11/07/24814) MAP (mmHg): 78.67 (11/07/24814) BP Location: Left arm (11/07/24814) BP Method: Automatic (11/07/24814) Patient Position: Sitting (11/07/24814) Oxygen Context: Sitting (11/07/24814) SpO2: 96 % (11/07/24814) O2 Device: None (Room air) (11/07/24814) Bed Mobility: Performed on bed Bed Mobility Level of Assistance: Close Supervision Bed Mobility Comment: Sit to supine with SBA Surface: Even surface and Indoor Assistive Device: RW Ambulation Level of Assistance: Close Supervision Distance (feet): 180 Gait Analysis: 180 ft x3 with RW and SBA to monitor balance and exertion. Pt takes brief standing rest breaks due to fatigue and mild dizziness. Vitals assessed BP 100/68, HR 88 bpm, SpO2 96%. Almas hose donned dependently following 1st bout. Pt tilted partially back in chair to manage pain between bouts. Pt demos mild unsteadiness, appropriate step length/height, mild toe-out bilaterally. Rails: Left Assistive Device: No device Stairs Level of Assistance: Close Supervision Stairs Height of Step: 6-inch Stair Analysis: 4 stairs with BUE support on L railing and SBA from PT to monitor balance. Number of Steps: 4 Technique 1: Sit to stand and Stand to sit Transfer Level of Assistance 1: Close Supervision Trials/Comments1: Sit<>stand with RW and SBA Mat Position: Neuro mat program with empahsis on slow/controlled movements bilaterally 2x15 to facilitate neuromuscular strength/control needed for functional mobility: ankle pumps, SAQ with 2lb ankle weights, UKTC with AAROM, hooklying hip abduction with red TB. Verbal cues for technique and full ROM througout. Activity comment: Patient requiring therapeutic rest breaks throughout session to manage fatigue and promote muscle recovery. Therapeutic Activities and Neuromuscular Re-education: To improve functional endurance and indep with ADLs pt completes toileting with SBA from pt's spouse per clearance. PT Treatment Outcomes:: Cues needed for safety and Patient tolerated treatment well PT Summary:: PT session focusing on gait, stairs, endurance, and strength training. Pt positioned supine in bed with all necessities in reach at end of session. Spouse present. PT Summary Plan of Care: Continue with current plan of care Pain Evaluation and Follow-up Pain Reassessment: 8 (11/07/24943) Nursing notified of patient's pain assessment: Primary Nurse (11/07/24943) Therapy Minutes Individual Concurrent Co-Treat Individual (PT) Time In : 814 Time Out: 944 Total Time with Patient (Min): 90 min Missed Minutes : 0 JESSICA KINSEY, PT 11/07/2024 * OT Treatment Note - Samuel Kaiser OT - 11/07/2024 7:30 AM EDT Occupational Therapy Treatment Patient Name: Charles Blandon Patient Birthdate: 1955 Patient Subjective Report - Patient laying in bed upon arrival, agreeable to OT session. Patient reports no pain this morning. Pain Assessment Pain Context: Therapy Assessment Prior to Treatment (11/07/24730) Pain Assessment: NRS 0-10 (11/07/24730) Pain Score: 0 - No pain (11/07/24730) Pain Severity - NRS (Calculated): No pain (11/07/24730) ADL Status: Eating: Modified Independent Eating Where Assessed: Edge of bed Feeding Comments: Patient completed self-feeding at Mod I while seated EOB Toileting: Distant Supervision Toileting Where Assessed: Toilet Toilet Comments: Patient initially requested to stand to void, patient educated on need for close supervision, patient decided to complete seated toileting for more privacy with distant supervision Dressing Upper Body: Setup Upper Body Dressing Where Assessed: Sitting edge of bed Upper Body Dressing Comments: Set up provided for don/doffing of shirt Dressing Lower Body: Minimal Assistance Lower Body Dressing Where Assessed: Sitting edge of bed Lower Body Dressing Comments: Min A for doffing pants/underwear off of feet, getting pants pulled over feet after threading of legs, and donning of one sock d/t fatigue Bed, Chair, Wheelchair Transfer: Distant Supervision Bed/Chair Transfer to: Stand Bed/Chair Transfer from: Bed Bed/Chair Transfer Technique: Sit to stand Bed/Chair Transfer Status: With stand by assist Assistive Devices Used: Walker ADL Training: ADL Training Narrative: Patient encouraged for improved LB dressing participation. Patient completed LB dressing with use of figure four, but required Min A for getting feet through ends of pants. Bed Mobility: Short sit to - from supine Bed Mobility Level of Assistance: Modified Independent Bed Mobility Comment: Mod I for supine > sit with HOB elevated OT Therapeutic Activity: Therapeutic Exercise: Patient challenged with BUE exercises with 2lb weight. Patient completes 10 reps x 6 sets of exercises for shoulder presses, chest presses, and bicep curls. Patient with fair tolerance to BUE exercises, requiring rest breaks between sets. Therapeutic Activity: Unsupported sitting EOB 7 minutes, before increased fatigue requesting to laydown. Treatment, Outcomes and Plan: OT Narrative:: OT session focused on ADLs and improved independence, along with BUE strengthening and endurance. Patient left seated in w/c with seat belt alarm on and hand-off to PT. OT Treatment Outcomes:: Safety device reapplied, Patient tolerated treatment well, Improved safety awareness, Improved ADL performance, Improved ability to perform functional transfers, Increased strength or muscular endurance (comment on location), Improved overall functional endurance, reduced rest frequency and Compensatory strategies effectively used OT Summary Plan of Care: Continue with current plan of care Pain Evaluation and Follow-up Pain Reassessment: 8 (in abdomin after activity) (11/07/24810) Nursing notified of patient's pain assessment: Primary Nurse (11/07/24810) Therapy Minutes Individual Concurrent Co-Treat Individual (OT) Time In : 729 Time Out: 814 Total Time with Patient (Min): 45 min SAMUEL KAISER OT 11/07/2024 * Plan of Care - Marly Aly RN - 11/07/2024 2:20 AM EDT Problem: Infection Goal: Absence of infection and prevention of transmission during hospitalization Outcome: Progressing Flowsheets (Taken 11/07/2024217) Absence of infection and prevention of transmission during hospitalization: Assess and monitor for signs and symptoms of infection and vital signs Monitor all insertion sites i.e., indwelling lines, tubes and drains, obtain order to remove devicewhen no longer clinically necessary Note: Afebrile/ clear urine Problem: Fall Safety: [place] Precautions Goal: Free from fall injury Outcome: Progressing Flowsheets (Taken 11/07/2024217) Free from fall injury: (3 side rails up) Perform fall risk assessment and identifiers in place (as applicable) Frequent rounding/monitoring Lighting appropriate Use of bed/chair alarm Bed low, locked 2 side rails Put call light within reach and teach how to call for assistance, respond to call light immediately Offer frequent toileting Encourage patient to wear glasses and hearing aids and to use walking aids when ambulating, non skid socks Toilet magnet in place ([facility] Only) Safe mobility and activity (this could include chair safety) Assess for environmental or other risks Note: Cooperative with safety plan of care Problem: Pain Goal: Patient's Pain/Discomfort is Manageable Outcome: Progressing Flowsheets (Taken 11/07/2024217) Patient's Pain/Discomfort is Manageable: Assess pain level Include patient/family/caregiver in decisions related to pain management Provide Emotional/Spiritual Support Administer medications as ordered Offer non-pharmocological pain management interventions Reassess patient's response and tolerance to discomfort Note: Reports adequate pain control * PT Treatment Note - Makenzie Emmanuel, PT - 11/06/2024 1:50 PM EDT PT Treatment Patient Name: Charles Blandon Patient Birthdate: 1955 Patient Subjective Report - Pt is sitting up in bed, agreeable to therapy session. Pt reports that he is feeling a bit better, but still mildly queasy. Pt reports mild dizziness when up in w/c, Vitals assessed with pt found to be orthostatic. Therapist discussed vitals with RN who agreed that pt would be safe to use SCI FIT bike Pain Assessment Pain Context: Therapy Assessment Prior to Treatment (11/06/24 135) Pain Assessment: NRS 0-10 (11/06/24 1350) Pain Score: 6 - Moderate Pain (11/06/24 1350) Pain Severity - NRS (Calculated): Moderate (11/06/24 1350) Pain Type: Acute pain (11/06/24 1350) Pain Location: Abdomen (11/06/24 1350) Pain Descriptors: Aching (11/06/24 135) Pre-therapy pain intervention required: Nurse notified (11/06/24 135) Pain Interventions Education Provided: Patient (11/06/24 135) Non-Pharmacologic Pain Interventions: Distractions, Exercise/Activity, Position/Reposition (11/06/24 135) Emotional/Spiritual Pain Interventions: Emotional Support (11/06/24 135) Pain Consults Initiated or Completed: Rehab (11/06/24 1350) Vital Signs Pulse: 59 (11/06/24 1433) BP: 114/67 (11/06/24 1433) MAP (mmHg): 82.67 (11/06/24 1433) Patient Position: Sitting (following SCI FIT Bike) (11/06/24 1433) 11/06/24 1409 11/06/24 1411 11/06/24 1433 Vital Signs Pulse 78 94 59 BP 95/61 (!) 81/60 114/67 MAP (mmHg) 72.33 67 82.67 Patient Position Sitting (reports of mild dizziness) Standing (reports of mild dizziness) Sitting (following SCI FIT Bike) Bed Mobility: Performed on bed and Short sit to - from supine Bed Mobility Level of Assistance: Modified Independent Transfer to 1: Wheelchair Transfer from 1: Bed Technique 1: Stand pivot Transfer Level of Assistance 1: Contact Guard Transfer to 2: Stand Transfer from 2: Wheelchair Technique 2: Sit to stand Transfer Level of Assistance 2: Contact Guard Seated Position: SCI FIT Bike with LEs only for 3:30 and 1:40 minutes with rest break between trials. Pt continues to reports mild dizziness and LE pain and fatigue. RLE: Full weight-bearing LLE: Full weight-bearing RUE: Full weight-bearing LUE: Full weight-bearing PT Treatment Outcomes:: Patient tolerated session fair PT Summary:: Pt tolerated full session, but was limited by mild dizziness, low BP. Focus of sessionwas placed on transfer training, monitoring of vitals and LE strength and functional activity tolerance. PT Summary Plan of Care: Continue with current plan of care Pain Evaluation and Follow-up Response to Therapy Interventions: Improved positioning (11/06/24 1440) Pain Reassessment: 6 (11/06/24 1440) Nursing notified of patient's pain assessment: Primary Nurse (11/06/24 1440) Therapy Minutes Individual Concurrent Co-Treat Individual (PT) Time In : 1350 Time Out: 1440 Total Time with Patient (Min): 50 min MAKENZIE EMMANUEL, PT 11/06/2024 * OT Treatment Note - Jeanne Gabriel - 11/06/2024 10:30 AM EDT Occupational Therapy Treatment Patient Name: Charles Blandon Patient Birthdate: 1955 Patient Subjective Report - I need a new wheelchair. Pain Assessment Pain Context: Therapy Assessment Prior to Treatment (11/06/24 1034) Pain Score: 7 - Severe Pain (11/06/24 1034) Pain Severity - NRS (Calculated): Severe (11/06/24 1034) Pain Location: Back (11/06/24 1034) Pain Orientation: Lower (11/06/24 1034) Pre-therapy pain intervention required: Patient expressed pain is tolerable/able to proceed, Nursing medicated patient - see BEN, Nurse notified (11/06/24 1034) Pain Interventions Education Provided: Patient (11/06/24 1113) Non-Pharmacologic Pain Interventions: Position/Reposition (11/06/24 1113) Emotional/Spiritual Pain Interventions: Emotional Support, Empathetic Discussion (11/06/24 1113) ADL Status: Bed, Chair, Wheelchair Transfer: Contact Guard Bed/Chair Transfer to: Wheelchair Bed/Chair Transfer from: Bed Bed/Chair Transfer Technique: Stand pivot Assistive Devices Used: Walker Bed/Chair Transfer Comments: Pt comp SPT EOB > w/c c CGA using WW Bed Mobility: Short sit to - from supine Bed Mobility Level of Assistance: Distant Supervision Bed Mobility Comment: Pt comp supine > sit at EOB c distant supervision. Wheelchair modifications or changes: Switched standard 18 inch w/c to 20 inch tilt in space to increase comfort and positioning when out of EOB. Lengthened B leg rests to accommodate for pt height. Knees noted to be parallel or slightly below when seated upright. Adjusted head rest for optimal cervical comfort when seated upright and tilted back at 45 degrees. Patient was instructed in wheelchair safety: Yes Wheelchair cushion modifications or changes: Utilized christine vac cushion to relieve pressure off of lumbar sacral region. Patient was instructed in weight shifting techniques while sitting in wheelchair: Yes Weight Shifting Narrative: Pt receptive to w/c modification. Spouse educated and given hands on experience c w/c tilt in space feature. Educated on keeping pt at 45 degrees to provide pressure reliefoff of sacrum. Caregiver provided teachback. Treatment, Outcomes and Plan: OT Narrative:: OT session focused on w/c modifications for pt overall function. Pt req switch to tilt in space for spinal and abdominal comfort and position for overall functioning and independence. Pt spouse educated on w/c management for safety. Pt left in seated position at end of session c call light & bedside table in reach, alarms armed, and all needs met upon OT departure. OT Treatment Outcomes:: Safety device reapplied, Patient tolerated treatment fairly and Patient reporting decreased pain OT Summary Plan of Care: Continue with current plan of care Pain Evaluation and Follow-up Response to Therapy Interventions: Improved positioning (11/06/24 1112) Pain Reassessment: 0, No pain (11/06/24 1113) Nursing notified of patient's pain assessment: Not indicated - pain score 2 or less (11/06/24 1113) Therapy Minutes Individual Concurrent Co-Treat Individual (OT) Time In : 1030 Time Out: 1115 Total Time with Patient (Min): 45 min JEANNE GABRIEL 11/06/2024 Cosigned by Laney Quintanilla, OT at 11/06/2024 12:54 PM EDT * PT Treatment Note - Makenzie Emmanuel, PT - 11/06/2024 9:45 AM EDT PT Treatment Patient Name: Charles Blandon Patient Birthdate: 1955 Patient Subjective Report - Pt is sitting up in bed, stating that he is not feeling well, endorsingnausea. Pt requesting bed level exercises, but agreeable to attempt a stand later in session. Pain Assessment Pain Context: Therapy Assessment Prior to Treatment (11/06/24944) Pain Assessment: NRS 0-10 (11/06/24944) Pain Score: 7 - Severe Pain (11/06/24944) Pain Severity - NRS (Calculated): Severe (11/06/24944) Pain Type: Surgical pain, Acute pain, Referred pain (11/06/24944) Pain Location: Abdomen (11/06/24944) Pain Descriptors: Aching (11/06/24944) Pre-therapy pain intervention required: Patient expressed pain is tolerable/able to proceed (pt reporting recieving medication approx 1.5 hours ago that has helped) (11/06/24944) Pain Interventions Education Provided: Patient (11/06/24944) Non-Pharmacologic Pain Interventions: Distractions, Exercise/Activity (11/06/24944) Emotional/Spiritual Pain Interventions: Emotional Support (11/06/24944) Pain Consults Initiated or Completed: Rehab (11/06/24944) Vital Signs Pulse: 79 (11/06/24 1026) BP: 111/72 (11/06/24 1026) MAP (mmHg): 85 (11/06/24 1026) Patient Position: Lying (taken following reports of severe dizziness during walk. Pt was returned to bed and vitals were assessed) (11/06/24 102) Bed Mobility: Performed on bed and Short sit to - from supine Bed Mobility Level of Assistance: Modified Independent Surface: Smooth surface Assistive Device: RW Ambulation Level of Assistance: Contact Guard Distance (feet): 140 (+ 2 x 20) Gait Analysis: Pt demos a slow camille with a reciprocal pattern, decreased step length, thoracic kyphosis and a narrow ZAY. Distance is limited by fatigue. Pt's ambulates short distances with pt in room to restroom. Pt reports severe dizziness at endof second walk, needing to return to bed. Therapist stepped in and provided CGA for last few steps to bed Transfer to 1: Stand Transfer from 1: Bed Technique 1: Sit to stand Transfer Level of Assistance 1: Contact Guard Mat Position: SAQs with 5 second hold x 10 reps; hip adduction/abduction (heels supported) x 15 reps; heel slides (heels supported) x 15 reps shukri RLE: Full weight-bearing LLE: Full weight-bearing RUE: Full weight-bearing LUE: Full weight-bearing PT Treatment Outcomes:: Patient tolerated session fair, Increasing strength, Improving overall functional endurance noted, Improved ambulation performance and Improved transfer ability noted PT Summary:: Pt tolerated full session, but was limited by nausea, fatigue. Focus of session with placed on gait training, LE strength, functional activity tolerance. Pt was left in bed at end of session with all needs met, call light in reach. Pain Evaluation and Follow-up Response to Therapy Interventions: Improved positioning (11/06/24 1029) Pain Reassessment: 7 (11/06/24 1029) Nursing notified of patient's pain assessment: Primary Nurse (11/06/24 1029) Therapy Minutes Individual Concurrent Co-Treat Individual (PT) Time In : 0945 Time Out: 1030 Total Time with Patient (Min): 45 min MAKENZIE EMMANUEL, PT 11/06/2024 * Plan of Care - Patrice Hua RN - 11/06/2024 9:43 AM EDT Problem: Infection Goal: Absence of infection and prevention of transmission during hospitalization Outcome: Progressing Problem: Knowledge Deficit Goal: Patient and/or family demonstrate readiness to learn Outcome: Progressing Goal: Patient and/or family verbalizes understanding of education, and/or performs desired skill Outcome: Progressing Problem: Discharge Planning Goal: Discharge to home or other facility with appropriate resources Outcome: Progressing Goal: 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 and enhance comfort in role Outcome: Progressing Problem: Delirium Goal: Prevent and Manage Delirium Outcome: Progressing Problem: Fall Safety: [place] Precautions Goal: Free from fall injury Outcome: Progressing Flowsheets (Taken 11/02/2024 2224 Free from fall injury: Perform fall risk assessment and identifiers in place (as applicable) Frequent rounding/monitoring Lighting appropriate Put call light within reach and teach how to call for assistance, respond to call light immediately Use of bed/chair alarm Bed low, locked 2 side rails Offer frequent toileting Toilet magnet in place ([facility] Only) Encourage patient to wear glasses and hearing aids and to use walking aids when ambulating, non skid socks Safe mobility and activity (this could include chair safety) Assess for environmental or other risks Goal: Toilet Magnet Status ([facility] Only) Outcome: Progressing Problem: Fall Huddle Goal: Free from Fall Injury Outcome: Progressing Problem: Pain Goal: Patient's Pain/Discomfort is Manageable Outcome: Progressing Flowsheets (Taken 11/06/2024 0943) Patient's Pain/Discomfort is Manageable: Assess pain level Assess pain using FLACC, PAINAD or Gill-Martinez Include patient/family/caregiver in decisions related to pain management Offer non-pharmocological pain management interventions Provide Emotional/Spiritual Support Administer medications as ordered Reassess patient's response and tolerance to discomfort Problem: Potential for Compromised Skin Integrity Goal: Skin integrity is maintained or improved Outcome: Progressing Flowsheets (Taken 11/06/2024 0943) Skin Integrity is Maintained or Improved: Assess skin and skin risk for breakdown Relieve pressure to bony prominences, avoid shearing Keep skin clean and dry Appropriate use of moisturizers for skin Monitor and teach appropriate hygiene practices Goal: Nutritional status is improving Outcome: Progressing * OT Treatment Note - Lukas Putnam OT - 11/06/2024 8:15 AM EDT Occupational Therapy Treatment Patient Name: Charles Blandon Patient Birthdate: 1955 Patient Subjective Report - I'm really tired , pt reports 8-9/10 lower abdominal and back pain. OTnotifies RN. Pain Assessment Pain Context: Therapy Assessment Prior to Treatment (11/06/24 08) Pain Assessment: NRS 0-10 (11/06/24 0815) Pain Score: 8 - Severe Pain (11/06/24 0815) Pain Severity - NRS (Calculated): Severe (11/06/24814) Pain Type: Chronic pain, Acute pain (11/06/24814) Pain Location: Back (11/06/24814) Pain Orientation: Lower (11/06/24814) Pain Descriptors: Sore (11/06/24814) Pain Onset: Ongoing (11/06/24814) Pain Frequency: Constant/continuous (11/06/24814) Aggravating Factors: Activity Duration (11/06/24814) Alleviating Factors: pain medications (11/06/24814) Pre-therapy pain intervention required: Patient expressed pain is tolerable/able to proceed, Nurse notified (11/06/24814) Pain Interventions Education Provided: Patient (11/06/24814) Non-Pharmacologic Pain Interventions: Distractions, Exercise/Activity (11/06/24814) Emotional/Spiritual Pain Interventions: Empathetic Discussion (11/06/24814) Pain Consults Initiated or Completed: Rehab (11/06/24814) ADL Status: Bed, Chair, Wheelchair Transfer: Close Supervision Bed/Chair Transfer to: Bed Bed/Chair Transfer from: Wheelchair Bed/Chair Transfer Technique: Stand pivot Assistive Devices Used: Walker Bed/Chair Transfer Comments: Pt performs stand pivot w/ walker w/ supervision for safety. Bed Mobility: Short sit to - from supine Bed Mobility Level of Assistance: Independent and Loss of Balance Bed Mobility Comment: Pt performs sit to supine Independent w/o assist. OT Therapeutic Activity: Therapeutic Exercise: Pt completed UB strengthening tasks w/ use of 2#, 1 sets x 15-20 reps based on act tolerance to perform biceps/forearm curls, overhead press, shoulder flexion, triceps extension. OT provided verbal cuing and instruction in order to maintain proper techniques in order to maximize benefit of selected therapeutic exercise in order to incr UB strength and act tolerance, in orderto incr safety and independence w/ ADL tasks and functional transfers and mobility. Treatment, Outcomes and Plan: OT Narrative:: OT Tx session focus on incr functional transfers, bed mobility, and incr UB strengthand act tolerance. Pt performance limited d/t c/o fatigue and lethargy. Upon completion of OT session pt returned to supine in bed w/ alarms on and all items placed within reach, pt spouse present inroom. OT Treatment Outcomes:: Safety device reapplied, Patient tolerated treatment poorly, Improved ability to perform functional transfers, Improved balance and coordination and Medical issues limiting patient progress OT Summary Plan of Care: Continue with current plan of care Pain Evaluation and Follow-up Pain Reassessment: 8 (11/06/24 08) Nursing notified of patient's pain assessment: Primary Nurse (11/06/2457) Therapy Minutes Individual Concurrent Co-Treat Individual (OT) Time In : 0815 Time Out: 0900 Total Time with Patient (Min): 45 min LUKAS PUTNAM, OT 11/06/2024 * Plan of Care - Milagros Montes RN - 11/05/2024 7:42 PM EDT Problem: Infection Goal: Absence of infection and prevention of transmission during hospitalization Outcome: Progressing Flowsheets (Taken 11/02/20242223 by Kirsten Crawford, RN) Absence of infection and prevention of transmission during hospitalization: Assess and monitor for signs and symptoms of infection and vital signs Monitor lab/diagnostic results Educate patient/family regarding signs and symptoms of infection Educate patient/family on proper hand washing and infection prevention techniques Problem: Knowledge Deficit Goal: Patient and/or family demonstrate readiness to learn Outcome: Progressing Flowsheets (Taken 10/31/2024 1037 by Jose L Shea RN) Patient and/ or family demonstrates readiness to learn: Identify learning needs, preferences, skill level and resources available Address any barriers to learning * Plan of Care - Que Rubio RN - 11/05/2024 4:00 PM EDT Problem: Fall Safety: [place] Precautions Goal: Free from fall injury Outcome: Progressing * Therapy Tx Cancellation Note - Aniket Arce OT - 11/05/2024 3:05 PM EDT Therapy Treatment Cancellation Note Patient Name: Charles Blandon Patient Birthdate: 1955 Anticipated fluctuations in therapy performance resulting from pain. Despite these fluctuations, patient continues to fully participate and benefit from the rehab program. Therapist will continue to adjust treatment & interventions (i.e. scheduling), to ensure participation and benefit. Therapy Type: Occupational Therapy Scheduled Appointment Time: 1345 Reason for Cancellation: Medical Issues - Pain Missed Minutes : -14 (11/05/24 1506) ANIKET ARCE OT 11/05/2024 * OT Treatment Note - Aniket Arce OT - 11/05/2024 1:45 PM EDT Occupational Therapy Treatment Patient Name: Charles Blandon Patient Birthdate: 1955 Patient Subjective Report - Pt was met long sitting in bed. What are we doing? Pt was agreeable to OT tx session. Pt's was present, she would remain present for the entirety of the tx session. Pain Assessment Pain Context: Therapy Assessment Prior to Treatment (11/05/241345) Pain Assessment: NRS 0-10 (11/05/241345) Pain Score: 7 - Severe Pain (11/05/241345) Pain Severity - NRS (Calculated): Severe (11/05/24 134) Pain Location: Back (11/05/241345) Pain Orientation: Lower, Mid (11/05/241345) Pre-therapy pain intervention required: Patient expressed pain is tolerable/able to proceed, Nurse notified (11/05/241345) Pain Interventions Education Provided: Patient (11/05/241345) Non-Pharmacologic Pain Interventions: Distractions, Position/Reposition, Relaxation, Rest () Emotional/Spiritual Pain Interventions: Empathetic Discussion (11/05/241345) Vital Signs Vitals Context: Resting (11/05/24 1456) Pulse: 87 (11/05/24 1456) Heart Rate Source: Monitor (11/05/24 145) BP: 103/63 (11/05/24 1456) MAP (mmHg): 76.33 (11/05/24 1456) BP Location: Left arm (11/05/24 145) BP Method: Automatic (11/05/24 145) Patient Position: Sitting (11/05/24 1456) Oxygen Context: Sitting (11/05/24 145) SpO2: 98 % (11/05/24 145) O2 Device: None (Room air) (11/05/24 1456) 11/05/24 1422 11/05/24 145 Vital Signs Vitals Context Activity Resting Pulse 75 87 Heart Rate Source Monitor Monitor BP 102/65 103/63 MAP (mmHg) 77.33 76.33 BP Location Left arm Left arm BP Method Automatic Automatic Patient Position Sitting Sitting Oxygen Context Sitting Sitting SpO2 92 % 98 % O2 Device None (Room air) None (Room air) Pt's BP was monitored during tx session. ADL Status: Toileting Where Assessed: Toilet Toilet Comments: Pt req Min A this date for toileting as he urinated while standing c RW placed over toilet. Pt would req A for pulling up bottoms. Toilet Transfer: Close Supervision Toilet Transfer to: Standard toilet (Standing position over standard toilet) Toilet Transfer From: Wheelchair Toilet Transfer Technique: Stand pivot Toilet Transfers Comments: Pt comp a SPT w/c <> toilet transfer c the use of GB. RW was placed over toilet prior. Tub Transfer To: Transfer tub bench Tub Transfer From: Wheelchair Tub Transfer Technique: Ambulatory Tub Transfers Comments: Pt req Min A this date for 2 ambulatory w/c <> tub transfer trials c tub transfer bench. Pt req A for lifting BLEs over tub. Bed, Chair, Wheelchair Transfer: Close Supervision Bed/Chair Transfer to: Wheelchair Bed/Chair Transfer from: Bed Bed/Chair Transfer Technique: Stand pivot Assistive Devices Used: No device Bed/Chair Transfer Comments: Pt req CGA-Sup this date to comp SPT bed <> w/c transfer w/o device using bedrails and chair armrests. OT Therapeutic Activity: Therapeutic Exercise: Pt participated in STS trials, standing and seated therapeutic exercises to target standing balanceas well as core, BUE and BLE muscle strength, endurance and coordination for ADL participation and transfer training. The pt was first tasked c completing 5 STS trials from w/c c CGA-Sup and GBA. Pt held each trial for 5 seconds. Pt completed 20 reps of the following BUE therapeutic exercises while seated in w/c: - shoulder elevation/depression - shoulder protraction/retraction - elbow flexion/extension - wrist flexion/extension Pt completed 15 reps of the following BLE therapeutic exercises while standing c CGA-Sup and GBA from parallel bars: - ankle dorsi/plantar flexion - hip flexion/extension - knee flexion/extension Therapeutic Activity: Pt was tasked c ambulating c CGA-Sup and GBA between parallel bars to retrieve 6 cloth items from floor using tie presser c RUE. Pt would keep LUE steady on parallel bars as he progressed through task. This therapeutic activity targeted dynamic standing balance as well as functional reaching for ADL and IADL participation. Treatment, Outcomes and Plan: OT Narrative:: The first half of OT tx session incorporated toileting, STS trials and seated therapeutic exercises. The second half of OT tx session incorporated standing therapeutic exercises and tub transfer trials. Pt was left lying in bed c call button within reach and all needs met. Pt's remained present for the entirety of tx session. OT Treatment Outcomes:: Safety device reapplied and Patient tolerated treatment well OT Summary Plan of Care: Continue with current plan of care Pain Evaluation and Follow-up Pain Reassessment: 8 (11/05/24 6369) Nursing notified of patient's pain assessment: Primary Nurse (11/05/24 8910) Therapy Minutes Individual Concurrent Co-Treat Individual (OT) Time In : 1345 Time Out: 1501 Total Time with Patient (Min): 76 min Missed Minutes : -14 ANIKET ARCE OT 11/05/2024 * Non-treatment Therapy Note - Gray Johnson OT - 11/05/2024 10:51 AM EDT Images from the original note were not included. Prior to team conference, Samuel aKiser, primary treating therapist, and I (designated therapist to attend team rounds) have communicated regarding current patient status, progress towards goals andmodifications to plan of care as appropriate. GRAY JOHNSON OT * PT Treatment Note - Olvin Arce, PT - 11/05/2024 10:30 AM EDT PT Treatment Patient Name: Charles Blandon Patient Birthdate: 1955 Patient Subjective Report - Pt supine in bed at start of session, agreeable to therapy session thisAM,., Increased paina dn fatigue- agreeable to bed level therapy. RN notified for pain med administration. Pain Assessment Pain Context: Therapy Assessment Prior to Treatment (11/05/241029) Pain Assessment: NRS 0-10 (11/05/241029) Pain Score: 8 - Severe Pain (11/05/241029) Pain Severity - NRS (Calculated): Severe (11/05/241029) Pain Type: Chronic pain (11/05/241029) Pain Location: Back (11/05/241029) Pain Orientation: Lower (11/05/241029) Pain Descriptors: Aching, Sore (11/05/241029) Pain Onset: Ongoing (11/05/241029) Pain Frequency: Constant/continuous (11/05/241029) Aggravating Factors: Activity Duration, Positioning (11/05/241029) Functional Impact: None (11/05/241029) Pre-therapy pain intervention required: Patient expressed pain is tolerable/able to proceed, Nurse notified (11/05/241029) Pain Interventions Education Provided: Patient (11/05/241029) Non-Pharmacologic Pain Interventions: Exercise/Activity (11/05/241029) Emotional/Spiritual Pain Interventions: Empathetic Discussion (11/05/241029) Pain Consults Initiated or Completed: Rehab (11/05/241029) Mat Position: SAQ with 2.5# ankle weights [id number]; ankle pumps x30 BLE; HS curls with green TB resistance [id number]; modified leg press [id number]; hip ABD with green TB resistance [id number]; glut sets [id number] completed to improve strength and endurance in BLE to support transfers Skin Issues Narrative: All visible bony prominences inspected throughout session and no changes in skin integrity noted as well as no concerns reported from patient. PT Treatment Outcomes:: Goals met for this session, Patient is progressing toward STG, Patient tolerated treatment well, Qualitative gains in function, Safety device reapplied, Increasing strength and Increased ROM PT Summary:: Session focused on BLE strength/ROM. Pt demonstrates mild limitations this date d/t increased pain and fatigue. Pt will continue to benefit from increased therapy focused on continued stair and gait training to ensure IND with discharge. . Pt seated in w/c at end of session with call light in reach and safety measures in place. PT Summary Plan of Care: Continue with current plan of care Pain Evaluation and Follow-up Response to Therapy Interventions: Improved activity tolerance, Improved mobility (11/05/241113) Pain Reassessment: 7 (11/05/241113) Nursing notified of patient's pain assessment: Primary Nurse (11/05/241113) Therapy Minutes Individual Concurrent Co-Treat Individual (PT) Time In : 1030 Time Out: 1115 Total Time with Patient (Min): 45 min OLVIN ARCE, PT 11/05/2024 * PT Treatment Note - Jessica Kinsey, PT - 11/05/2024 9:00 AM EDT PT Treatment Patient Name: Charles Blandon Patient Birthdate: 1955 Patient Subjective Report - Pt encountered supine in bed, pleasant and agreeable to therapy session. Pt reports feeling better than yesterday. Pt's spouse, Fabiana, present for session. Pain Assessment Pain Context: Therapy Assessment Prior to Treatment (11/05/24 0900) Pain Assessment: None/denies pain (11/05/24 09) Overall Cognitive Status: Impairments impacting function Comment: Impaired memory, mild agitation at times when unsure of instuction or with repeated instruction from spouse, easy to re-direct and apologetic. Bed Mobility: Performed on bed Bed Mobility Level of Assistance: Minimal Assistance Bed Mobility Comment: Supine to sit with Meena to right trunk Surface: Even surface and Indoor Assistive Device: RW and No Device Ambulation Level of Assistance: Close Supervision, Minimal Assistance and Total Assistance/Dependent Distance (feet): 180 Gait Analysis: 180 ft x2 with RW and SBA to monitor balance. Pt demos kyphotic posture with mild unsteadiness. 32 ft with no device and Meena + WCF. Emphasis on progressing toward patient goal of ambulating without device and challenging balance. Pt unsteady with downward gaze. Reviewed ongoing benefit of walker for balance, mitigating back pain, and energy conservation. Rails: Left Assistive Device: No device Stairs Level of Assistance: Contact Guard Stairs Height of Step: 6-inch Stair Analysis: 6 stairs with BUE support on L rail and CGA from pt spouse for family training. Pt initially trials with unilateral UE support on rail but demos insufficient strength/balance to complete and self-selects return to BUE support. Spouse reports plan to have 2nd rail installed. Number of Steps: 6 Transfer to 1: Wheelchair Transfer from 1: Bed Technique 1: Stand pivot Transfer Level of Assistance 1: Close Supervision Trials/Comments1: Bed to w/c stand pivot with RW and SBA Technique 2: Stand to sit and Sit to stand Transfer Level of Assistance 2: Close Supervision Trials/Comments 2: Sit<>stand with RW and SBA Dynamimc Standing Balance: Foam (Gonzalez bag toss on foam pad to volitional fatigue) Dynamic Standing Level of Assistance: Contact Guard and Minimal Assistance Dynamic Standing # of Mins/Comments: < 5 mins PT Treatment Outcomes:: Cues needed for safety and Patient tolerated treatment well PT Summary:: PT session focusing on gait, stair, and balance training. Pt initially with no pain, however onset of back pain at end of session rated 8/10 - nursing notified. NA setting up K-pad for patient at end of session. PT Summary Plan of Care: Continue with current plan of care Pain Evaluation and Follow-up Pain Reassessment: 8 (11/05/24944) Nursing notified of patient's pain assessment: Primary Nurse (11/05/24944) Therapy Minutes Individual Concurrent Co-Treat Individual (PT) Time In : 0900 Time Out: 944 Total Time with Patient (Min): 45 min Missed Minutes : 0 JESSICA KINSEY, PT 11/05/2024 * Non-treatment Therapy Note - Belinda Larsen PT - 11/05/2024 7:45 AM EDT Prior to team conference, Jessica Kinsey, PT , primary treating therapist, and I (designated therapist to attend team rounds) have communicated regarding current patient status, progress towards goals and modifications to plan of care as appropriate. BELINDA LARSEN PT * Plan of Care - Milagros Montes RN - 11/04/2024 7:50 PM EDT Problem: Infection Goal: Absence of infection and prevention of transmission during hospitalization Outcome: Progressing Flowsheets (Taken 11/02/20242223 by Kirsten Crawford, LEO) Absence of infection and prevention of transmission during hospitalization: Assess and monitor for signs and symptoms of infection and vital signs Monitor lab/diagnostic results Educate patient/family regarding signs and symptoms of infection Educate patient/family on proper hand washing and infection prevention techniques Problem: Knowledge Deficit Goal: Patient and/or family demonstrate readiness to learn Outcome: Progressing Flowsheets (Taken 10/31/2024 1037 by Jose L Shea RN) Patient and/ or family demonstrates readiness to learn: Identify learning needs, preferences, skill level and resources available Address any barriers to learning * Plan of Care - Que Rubio RN - 11/04/2024 4:00 PM EDT Problem: Potential for Compromised Skin Integrity Goal: Skin integrity is maintained or improved Outcome: Progressing Flowsheets (Taken 11/04/2024 1400) Skin Integrity is Maintained or Improved: Assess skin and skin risk for breakdown Relieve pressure to bony prominences, avoid shearing Keep skin clean and dry * PT Weekly Progress Note - Jessica Kinsey PT - 11/04/2024 3:33 PM EDT PT Weekly Progress Note Patient Name: Charles Blandon Patient Birthdate: 1955 PT CURRENT FUNCTIONAL STATUS: PT Current Functional Status: PT Current Functional Status: Charles Blandon's current mobility status is the following: CGA for transfers, ambulates variable 40-180 feet with CGA using RW (fluctuates due to fatigue and pain) and performs 4 stairs with L handrail and CGA. Progress since last update: fluctuating due to fatigue/pain Limitations include: back and abdominal pain, fatigue, weakness, JESUS home Charles Blandon will benefit from continued PT services to address these deficits and progress patient's independence/safety with mobility DME recommendation: walker Therapy Recommendation at Discharge: PT Family Training Needs: Completed Home Set Up: 3 JESUS with R rail Skin Assessment: Skin check completed 11/04/2024, no new areas of concern noted on bilateral feet/heels or under braces (if applicable). Factors in Goal Achievement: Facilitating Factors: Support of family or caregiver and Improved functional mobility Barriers: Pain, Strength limitations, Diminished endurance and Balance deficits Date Last Assessed: 11/04/2024 DME Recommendations Common Therapy DME: Walker Walker : Adult Walker, 2 Wheeled Walker - 5in Wheels CARE Score David: 6: Independent. [place] provides no assistance with tasks. A device may or may not have been used. 5: Set-up or clean-up assistance. [place] sets up or cleans up, but does not assist with tasks. [place] may have assisted prior to or following the activity. 4: Supervision or touching assistance. [place] provides verbal cues or touching/steadying or contactguard assistance. Assistance may be provided throughout the activity or intermittently. 3: Partial/moderate assistance. [place] does less than half the effort. [place] lifts, holds, or supports trunk or limbs, but provides less than half the effort. 2: Substantial/maximal assistance. [place] does more than half the effort. [place] lifts or holds trunk or limbs, and provides more than half the effort. 1: Dependent. [place] does all of the effort, or the assistance of two or more helpers is required for the patient to complete the activity. -: Inconsistent or incomplete documentation Activity not attempted values: 7: Patient refused 9: Not applicable - Not attempted and the patient did not perform this activity prior to the current illness, exacerbation, or injury. 10: Not attempted due to environmental limitations (e.g., lack of equipment, weather constraints) 88: Not attempted due to medical condition or safety concerns Retirement Goals: Goal Status on Admission Current Status Car Transfer LTG: Independent Car Transfer - CARE Score: 3 (10/31/24 123) Car Transfer - CARE Score: 3 (11/04/241533) Walk 10 Feet LTG: Independent Walk 10 Feet - CARE Score: 1 (10/31/241235) Walk 10 Feet - CARE Score: 4 (11/04/241533) Walk 50 Feet with Two Turns LTG: Independent Walk 50 Feet with Two Turns - CARE Score: 1 (10/31/241235) Walk 50 Feet with Two Turns - CARE Score: 4 (11/04/241533) Walk 150 Feet LTG: Supervision or touching assistance Walk 150 Feet - CARE Score: 88 (10/31/241235) Walk 150 Feet - CARE Score: 4 (11/04/241533) Walking 10 Feet on Uneven Surfaces LTG: Independent Walking 10 Feet on Uneven Surfaces - CARE Score: 88 (10/31/241235) Walking 10 Feet on Uneven Surfaces - CARE Score: 88 (11/04/241533) 1 Step (Curb) LTG: Independent 1 Step (Curb) - CARE Score: 88 (10/31/241235) 1 Step (Curb) - CARE Score: 4 (11/04/241533) 4 Steps LTG: Independent 4 Steps - CARE Score: 88 (10/31/241235) 4 Steps - CARE Score: 4 (534) 12 Steps LTG: Supervision or touching assistance 12 Steps - CARE Score: 88 (10/31/24 123) 12 Steps- CARE Score: 88 (11/04/241533) Picking Up Object LTG: Independent Picking Up Object - CARE Score: 88 (10/31/241235) Picking Up Object - CARE Score: 88 (11/04/241533) Wheel 50 Feet with Two Turns LTG: Not applicable Wheel 50 Feet with Two Turns - CARE Score: 1 (10/31/24 123) Wheel 50 Feet with Two Turns - CARE Score: 1 (07/21/25 1534) Wheel 150 Feet LTG: Not applicable Wheel 150 Feet - CARE Score: 1 (10/31/24 1236) Wheel 150 Feet - CARE Score: 1 (11/04/24 1534) Additional Goals & Status: N/A PT Short Term Goal 1: Focus: Car Transfer Level of Assistance to Meet Short Term Goal: Supervision Expected Achievement Date: 11/11/2024 Goal Status: Partially Achieved PT Short Term Goal 2: Focus: Walking Level of Assistance to Meet Short Term Goal: Incidental touching Expected Achievement Date: 11/04/2024 Status: Achieved Walking Distance: 150 feet PT Short Term Goal 3: Focus: Steps Level of Assistance to Meet Short Term Goal: Incidental touching Expected Achievement Date: 11/04/2024 Status: Achieved Number of Steps: 4 Duration Expiration Date: 11/21/2024 JESSICA KINSEY, PT 11/04/2024 * PT Treatment Note - Jessica Kinsey PT - 11/04/2024 1:45 PM EDT PT Treatment Patient Name: Charles Blandon Patient Birthdate: 1955 Patient Subjective Report - Patient in w/c upon PT arrival, pleasant and agreeable to therapy session. Pt's RN connecting IV medication. TEDs in place. Pain Assessment Pain Context: Therapy Assessment Prior to Treatment (11/04/24 134) Pain Assessment: NRS 0-10 (11/04/24 134) Pain Score: 8 - Severe Pain (11/04/24 1345) Pain Severity - NRS (Calculated): Severe (11/04/24 1345) Pain Type: Chronic pain (11/04/24 1345) Pain Location: Back (11/04/24 134) Pain Orientation: Lower, Mid (11/04/24 134) Pain Descriptors: Aching, Sore (11/04/24 1345) Pain Onset: Ongoing (11/04/24 1115) Pain Frequency: Constant/continuous (11/04/24 134) Aggravating Factors: Activity Duration (11/04/24 134) Additional Pain Site(s)?: Pain 2 (11/04/24 134) Pre-therapy pain intervention required: Patient expressed pain is tolerable/able to proceed, Nurse notified (11/04/241344) Pain Interventions Non-Pharmacologic Pain Interventions: Distractions, Exercise/Activity, Heat Applied, Position/Reposition, Rest (11/04/24 134) Emotional/Spiritual Pain Interventions: Emotional Support (11/04/24 134) Pain Site 2 Pain Assessment Site 2: NRS 0-10 (11/04/24 134) Pain Score Site 2: 7 (11/04/241344) Pain Severity - NRS (Calculated): Severe (11/04/24 134) Pain Type Site 2: Surgical pain (11/04/24 134) Pain Descriptors Site 2: Sore (11/04/241344) Vital Signs Pulse: 74 (11/04/24 1115) Heart Rate Source: Monitor (11/04/24 111) BP: 120/76 (11/04/24 1115) MAP (mmHg): 90.67 (11/04/24 1115) BP Location: Left arm (11/04/241114) BP Method: Automatic (11/04/24 111) Patient Position: Sitting (11/04/24 111) Overall Cognitive Status: Impairments impacting function Comment: Impaired memory, mild agitation at times when unsure of instuction, easy to re-direct and apologetic. Surface: Even surface and Indoor Assistive Device: RW Distance (feet): 40 Gait Analysis: 40 ft with RW and CGA + assist to tow IV. Distance limited by fatigue and back pain with patient sitting to nearby mat table in therapy gym. Pt demos kyphotic posture, mild gait unsteadiness. Technique 1: Sit to stand and Stand to sit Transfer Level of Assistance 1: Minimal Assistance Trials/Comments1: Sit<>stand with RW and CGA Transfer to 2: Wheelchair Transfer from 2: Mat and Bed Technique 2: Stand pivot Transfer Level of Assistance 2: Contact Guard Trials/Comments 2: Mat to w/c and w/c to bed stand pivot with RW and CGA Weight-bearing additional comments: Neuro mat program with empahsis on slow/controlled movements bilaterally [id number] to facilitate neuromuscular strength/control needed for functional mobility: SAQ, UKTC with AAROM, bridges, hip ab/adduction. Verbal cues for technique and full ROM througout. Activity Type: Standing Activity Endurance: Fair Activity comment: Standing tolerance -No device and Meena due to strength/balance deficits; limited to ~15s -RW and CGA for 45s, 1 min 11s, and 1 min 12s duration. Pt performed scifit x1 min 05s to fatigue level 1 with BLE - emphasis on strength and endurance with alternating agonist/antagonist reciprocal movements to enhance functional activity tolerance. PT Treatment Outcomes:: Cues needed for safety, Patient tolerated session fair and Pain limiting patient progress PT Summary:: PT session focusing on standing tolerance, gait, endurance, and strength training. Pt limited by back pain and general fatigue this date. Pt returned to room following therapy session. Pt positioned supine in bed with HOB elevated. Bed alarm activated, call light and personal needs in reach. PT Summary Plan of Care: Continue with current plan of care Pain Evaluation and Follow-up Pain Reassessment: 7 (11/04/24 1516) Nursing notified of patient's pain assessment: Primary Nurse (11/04/24 1516) Therapy Minutes Individual Concurrent Co-Treat Individual (PT) Time In : 1345 Time Out: 1516 Total Time with Patient (Min): 91 min Missed Minutes : 0 JESSICA KINSEY PT 11/04/2024 CHART CORRECTION: Type of Chart Edit: Addendum Reason for Correction: Additional information added Name: Jessica Kinsey PT DPT Date: 11/04/2024 Time: 15:32 EDT * PT Treatment Note - Jessica Kinsey PT - 11/04/2024 11:15 AM EDT PT Treatment Patient Name: Charles Blandon Patient Birthdate: 1955 Patient Subjective Report - Patient encountered supine in bed, pt c/o lightheadedness when upright.Vitals monitored. Pt's spouse Fabiana present. Pain Assessment Pain Context: Therapy Assessment Prior to Treatment (11/04/24 1115) Pain Assessment: NRS 0-10 (11/04/24 1115) Pain Score: 7 - Severe Pain (07/21/25 1115) Pain Severity - NRS (Calculated): Severe (11/04/241114) Pain Type: Acute pain, Surgical pain (11/04/241114) Pain Location: Abdomen (11/04/241114) Pain Descriptors: Aching, Discomfort (11/04/241114) Pain Onset: Ongoing (11/04/241114) Pain Frequency: Constant/continuous (11/04/241114) Pre-therapy pain intervention required: Patient expressed pain is tolerable/able to proceed, Nurse notified (11/04/241114) Pain Interventions Non-Pharmacologic Pain Interventions: Exercise/Activity, Distractions (11/04/241114) Emotional/Spiritual Pain Interventions: Emotional Support (11/04/241114) Vital Signs Pulse: 74 (11/04/241114) Heart Rate Source: Monitor (11/04/241114) BP: 120/76 (11/04/241114) MAP (mmHg): 90.67 (11/04/241114) BP Location: Left arm (11/04/241114) BP Method: Automatic (11/04/241114) Patient Position: Sitting (11/04/241114) Bed Mobility: Performed on bed Bed Mobility Level of Assistance: Minimal Assistance Bed Mobility Comment: Supine to sit with Meena for trunk righting due to retro LOB. BP 119/79, HR 94 bpm sitting EOB. Pt c/o lightheadedness. Surface: Even surface and Indoor Ambulation Level of Assistance: Contact Guard Distance (feet): 16 Gait Analysis: Patient ambulates from bed to toilet with RW and CGA. Pt voids in standing with CGA from spouse for safety. Requests w/c pick-up due to fatigue. BP 126/89 following. Technique 1: Sit to stand and Stand to sit Transfer Level of Assistance 1: Contact Guard Trials/Comments1: Sit<>stand with RW and CGA Seated Position: Pt seated in w/c completing x10-15 of the following exercises to facilitate strength needed for functional mobility: ankle pumps, LAQ, marching, heel slides, hip ab/adduction. Verbalcues for technique and full ROM throughout. Standing Position: Repeated STS 3x5 with RW and SB-CGA. Activity comment: Patient requiring therapeutic rest breaks throughout session to manage fatigue and promote muscle recovery. PT Treatment Outcomes:: Cues needed for safety and Patient tolerated treatment well PT Summary:: PT session focusing on improving tolerance to upright, strength training. .Pt returnedto room following therapy session. Chair alarm activated, seatbelt fastened, call light and personal needs in reach. Nursing notified if vitals. PT Summary Plan of Care: Continue with current plan of care Pain Evaluation and Follow-up Pain Reassessment: 8 (11/04/24 1200) Nursing notified of patient's pain assessment: Primary Nurse (11/04/24 1200) Therapy Minutes Individual Concurrent Co-Treat Individual (PT) Time In : 1115 Time Out: 1200 Total Time with Patient (Min): 45 min Missed Minutes : 0 JESSICA KINSEY, PT 11/04/2024 * Case Management Progress - REYNA Salazar - 11/04/2024 10:55 AM EDT Apartment Community Assistant Manager Plan Patient Name: Charles Blandon Date: 11/04/24 Time: 10:55 AM EDT Attendees: Bill-patient, Fabiana-, Michelle-Sydney LOVETT- therapy Caregiver Name: Fabiana Anticipated length of rehab stay: 1-2 weeks Expected level of supervision at time of discharge: supervision expected for ADLs, toileting, mobility, med management, cooking Expected level of physical care/assistance at time of discharge: physical assistance with a few tasks Caregiver and Level of supervision/care able to provide: (list below) Fabiana- 07/11 Patient and family goals:( list below) Getting home. Barriers to safe discharge and Solutions Discussed: (list below) Strength/endurance - continue PT/OT Recommendation for Family Training Sessions, Dates and Times Scheduled: Onging FT, here daily. MICHELLE DOMINGUEZ LSW 11/04/24 10:55 AM EDT * OT Weekly Progress Note - Samuel Kaiser OT - 11/04/2024 9:36 AM EDT Occupational Therapy Weekly Progress Note Patient Name: Charles Blandon Patient Birthdate: 1955 OT Current Functional Status: Patient is showing progress during rehab stay at [facility]. Current limitations and barriers include medical complications, endurance, and strength. Patient would benefit from continued OT services to address deficits listed above to help assist toPLOF. DME recommended: Tub transfer bench, arm rests over toilet (Provided hand-outs to ) Therapy Recommendation at Discharge: HH OT Family Training Needs: Completed, is here daily for ongoing FT. Home Set Up: Pt lives c spouse in 2[address] c 3 [address] c unilateral rail. Pt's bedroom is on the 2nd floor c 15 steps up with a full bathroom that features a tub/shower combo, standard toilet and grab bars. Pt and spouse reports that they bought a recliner chair that will be set up on ground floor, pt can use half bathroom on 1st floor. Home also features a basement that pt does not access. Skin assessment: No acute changes noted in skin integrity along bony prominences including B heels,lumbar/sacral region, and along/under orthotics/braces. Patient is performing the following with: Feeding: Set up Oral Hygiene: Set up Toileting: Mod A Bathing: Mod A UB Dressing: Min A LB Dressing: Mod A Footwear: Min A Bed Mobility: CGA supine <> sit, Min A rolling Transfers: Supervision for STS and stand pivot transfers with RW Facilitating Factors in Goal Achievement: Patient understanding and knowledge, Patient motivation, Support of significant other, Improved strength, Improved functional mobility and Improved function Barriers to Goal Achievement: Diminished endurance, Medical complications, Pain, Strength limitations and Balance deficits Date Last Assessed: 11/04/2024 Patient needs assistance with the following activities: Activities of daily living and Going out inthe community DME Recommendations Common Therapy DME: Tub Transfer Bench Tub Transfer Bench: Standard Tub Transfer Bench CARE Score David: 6: Independent. [place] provides no assistance with tasks. A device may or may not have been used. 5: Set-up or clean-up assistance. [place] sets up or cleans up, but does not assist with tasks. [place] may have assisted prior to or following the activity. 4: Supervision or touching assistance. [place] provides verbal cues or touching/steadying or contactguard assistance. Assistance may be provided throughout the activity or intermittently. 3: Partial/moderate assistance. [place] does less than half the effort. [place] lifts, holds, or supports trunk or limbs, but provides less than half the effort. 2: Substantial/maximal assistance. [place] does more than half the effort. [place] lifts or holds trunk or limbs, and provides more than half the effort. 1: Dependent. [place] does all of the effort, or the assistance of two or more helpers is required for the patient to complete the activity. -: Inconsistent or incomplete documentation Activity not attempted values: 7: Patient refused 9: Not applicable - Not attempted and the patient did not perform this activity prior to the current illness, exacerbation, or injury. 10: Not attempted due to environmental limitations (e.g., lack of equipment, weather constraints) 88: Not attempted due to medical condition or safety concerns Retirement Goals: Goal Status on Admission Current Status Eating LTG: Independent Eating - CARE Score: 5 (10/31/24 125) Eating - CARE Score: 5 (11/04/241543) Oral Hygiene LTG: Independent Oral Hygiene - CARE Score: 5 (10/31/241253) Oral Hygiene - CARE Score: 5 (11/04/241543) Toileting Hygiene LTG: Independent Toileting Hygiene - CARE Score: 1 (10/31/241253) Toileting Hygiene - CARE Score: 2 (11/04/241543) Shower/Bathe Self LTG: Supervision or touching assistance Shower/Bathe Self - CARE Score: 2 (10/31/241253) Shower/Bathe Self - CARE Score: 2 (11/04/241543) Upper Body Dressing LTG: Independent Upper Body Dressing - CARE Score: 3 (10/31/24 125) Upper BodyDressing - CARE Score: 3 (11/04/241543) Lower Body Dressing LTG: Independent Lower Body Dressing - CARE Score: 1 (10/31/241253) Lower BodyDressing - CARE Score: 2 (11/04/241543) Putting On/Taking Off Footwear LTG: Independent Putting On/Taking Off Footwear - CARE Score: 2 (10/31/241253) Putting On/Taking Off Footwear - CARE Score: 3 (11/04/241543) Roll Left and Right LTG: Independent Roll Left and Right - CARE Score: 2 (10/31/24 1254) Roll Left and Right - CARE Score: 3 (11/04/24 154) Sit to Lying LTG: Independent Sit to Lying - CARE Score: 2 (10/31/24 1254) Sit to Lying - CARE Score: 4 (11/04/241543) Lying to Sitting on Side of Bed LTG: Independent Lying to Sitting on Side of Bed - CARE Score: 2 (10/31/24 125) Lying to Sitting on Side of Bed - CARE Score: 4 (11/04/241543) Sit to Stand LTG: Independent Sit to Stand - CARE Score: 3 (10/31/24 125) Sit to Stand - CARE Score: 4 (11/04/241543) Chair/Twn-wc-Nieya Transfer LTG: Independent Chair/Pmm-yp-Efcat Transfer - CARE Score: 3 (10/31/24 125) Chair/Rjk-rh-Gknkj Transfer - CARE Score: 4 (11/04/241543) Toilet Transfer LTG: Independent Toilet Transfer - CARE Score: 3 (10/31/241253) Toilet Transfer - CARE Score: 4 (11/04/241543) Additional Goals & Status: N/A OT Short Term Goal 1: Focus: Chair/Bed Transfer Level of Assistance to Meet Short Term Goal: Incidental touching Expected Achievement Date: 11/04/2024 Goal Status: Achieved OT Short Term Goal 2: Focus: Lower Body Dressing Level of Assistance to Meet Short Term Goal: Physical assistance 50%-74% Expected Achievement Date: 11/04/2024 Goal Status: Achieved OT Short Term Goal 3: Focus: Shower/Bathe Level of Assistance to Meet Short Term Goal: Physical assistance 25%-49% Expected Achievement Date: 11/11/2024 Goal Status: Partially Achieved OT Short Term Goal 4: Focus: Toileting Hygiene Level of Assistance to Meet Short Term Goal: Set-up/Clean-up Expected Achievement Date: 11/11/2024 Goal Status: Established OT Short Term Goal 5: Focus: Roll Left and Right Level of Assistance to Meet Short Term Goal: Supervision Expected Achievement Date: 11/11/2024 Goal Status: SAMUEL Barrientos OT 11/04/2024 * OT Treatment Note - Samuel Kaiser OT - 11/04/2024 9:00 AM EDT Occupational Therapy Treatment Patient Name: Charles Blandon Patient Birthdate: 1955 Patient Subjective Report - Patient seated in w/c upon arrival, agreeable to OT session. Patient with increased dizziness, fatigue, and weakness this date. BP taken during session, with decrease to 83/59. Nursing notified. ALMAS billleón mackenzie. 11/04/2492211/04/2492511/04/24930 Vitals BP (!) 83/59 107/69 103/69 BP Location Left arm Left arm Left arm BP Method Automatic Automatic Automatic Patient Position Sitting Lying Lying Pain Assessment Pain Context: Therapy Assessment Prior to Treatment (11/04/24902) Pain Assessment: NRS 0-10 (11/04/24902) Pain Score: 7 - Severe Pain (11/04/24902) Pain Severity - NRS (Calculated): Severe (11/04/24902) Pain Type: Acute pain (11/04/24902) Pain Location: Abdomen (11/04/24902) Pain Descriptors: Aching, Discomfort (11/04/24902) Pain Onset: Ongoing (11/04/24902) Pain Frequency: Constant/continuous (11/04/24902) Aggravating Factors: Weakness, Positioning, Activity Duration (11/04/24902) Functional Impact: Self care/ADL's, Transfers (11/04/24902) Pre-therapy pain intervention required: Patient expressed pain is tolerable/able to proceed (11/04/24902) Pain Interventions Education Provided: Patient (11/04/24902) Non-Pharmacologic Pain Interventions: Distractions, Exercise/Activity (11/04/24902) Emotional/Spiritual Pain Interventions: Empathetic Discussion (11/04/24902) Vital Signs BP: 103/69 (11/04/24930) MAP (mmHg): 80.33 (11/04/24930) BP Location: Left arm (11/04/24930) BP Method: Automatic (11/04/24930) Patient Position: Lying (11/04/24930) ADL Status: Toileting: Moderate Assistance Toileting Where Assessed: Toilet Toilet Comments: Max A for toileting hygiene after BM and patient able to complete LB clothing management with Min A Dressing Lower Body: Total Assistance/Dependent Lower Body Dressing Where Assessed: Supine in bed Lower Body Dressing Comments: Total A for donning ALMAS hose in bed Toilet Transfer: Close Supervision Toilet Transfer to: Standard bedside commode Toilet Transfer From: Stand Toilet Transfer Technique: Sit to stand and Ambulatory Toilet Transfers Comments: With RW and grab bars to sit Bed, Chair, Wheelchair Transfer: Close Supervision Bed/Chair Transfer to: Stand Bed/Chair Transfer from: Wheelchair Bed/Chair Transfer Technique: Sit to stand Bed/Chair Transfer Status: With stand by assist Assistive Devices Used: Walker Bed/Chair Transfer Comments: STS to RW with supervision Bed Mobility: Short sit to - from supine Bed Mobility Level of Assistance: Close Supervision OT Therapeutic Activity: Endurance: Patient able to tolerate short distance mobility > bathroom with RW with supervision.Unable to tolerate mobility back to bed d/t symptoms of dizziness. Patient Education: Patient and spouse educated on DME recommendations, including tub transfer benchand arm rests around toilet. Therapist provided print out of information on tub transfer bench and arm rests around toilet for improved patient's independence at home. Treatment, Outcomes and Plan: OT Narrative:: OT session focused on transfer, ADLs, and mobility. Patient left laying in bed with ALMAS hose donned for improved BP. Patient left laying in bed with all items within reach. OT Treatment Outcomes:: Safety device reapplied, Patient tolerated treatment well, Cues needed for safety, Improved ADL performance, Improved ability to perform functional transfers, Increased strength or muscular endurance (comment on location) and Improved overall functional endurance, reduced rest frequency OT Summary Plan of Care: Continue with current plan of care Pain Evaluation and Follow-up Pain Reassessment: 0, No pain (11/04/24942) Nursing notified of patient's pain assessment: Not indicated - pain score 2 or less (11/04/24942) Therapy Minutes Individual Concurrent Co-Treat Individual (OT) Time In : 0900 Time Out: 944 Total Time with Patient (Min): 45 min SAMUEL KAISER OT 11/04/2024 * Plan of Care - Juani Jay RN - 11/03/2024 7:21 PM EDT Problem: Infection Goal: Absence of infection and prevention of transmission during hospitalization Outcome: Progressing * Plan of Care - Dickson Wright RN - 11/03/2024 3:49 PM EDT Problem: Infection Goal: Absence of infection and prevention of transmission during hospitalization Outcome: Progressing Problem: Knowledge Deficit Goal: Patient and/or family demonstrate readiness to learn Outcome: Progressing Goal: Patient and/or family verbalizes understanding of education, and/or performs desired skill Outcome: Progressing Problem: Fall Safety: [place] Precautions Goal: Free from fall injury Outcome: Progressing Goal: Toilet Magnet Status ([facility] Only) Outcome: Progressing * PT Treatment Note - Belinda Larsen, PT - 11/03/2024 3:17 PM EDT PT Treatment Patient Name: Charles Blandon Patient Birthdate: 1955 Patient Subjective Report - Patient found in bed, at bedside. Patient agreeable to session, nonew complaints. PT donned mask throughout session to maintain precautions. IV attached; alerted RN. During waiting time, PT attempted to find a recliner or more comfortable chair in closets however unsuccessful. After 1st walk, c/o LBP; PT offered hot pack, patient agreeable to use. Pain Assessment Pain Context: Therapy Assessment During Treatment (11/03/24 1603) Pain Assessment: NRS 0-10 (11/03/24 153) Pain Score: 8 - Severe Pain (11/03/24 153) Pain Severity - NRS (Calculated): Severe (11/03/24 1539) Pain Type: Acute pain (11/03/24 153) Pain Location: Back (11/03/24 153) Pain Descriptors: Sore (11/03/241538) Pain Onset: Ongoing (11/03/241538) Pain Frequency: With activity (11/03/241538) Aggravating Factors: Activity Duration (11/03/241538) Functional Impact: Ambulation (11/03/241538) Pre-therapy pain intervention required: Patient expressed pain is tolerable/able to proceed (11/03/241538) Pain Interventions Education Provided: Patient (11/03/24 160) Non-Pharmacologic Pain Interventions: Distractions, Rest, Heat Applied (11/03/24 160) Emotional/Spiritual Pain Interventions: Emotional Support (11/03/24 160) Bed Mobility: Short sit to - from supine Bed Mobility Level of Assistance: Close Supervision Bed Mobility Comment: Supine > short sitting EOB with HOB elevated, SUP Surface: Indoor, Smooth surface and Even surface Assistive Device: RW Ambulation Level of Assistance: Contact Guard Gait Analysis: Ambulated 198' + 35' using RW, CGA; demonstrated increased speed and step length with good heel strike BL, increased difficulty speaking d/t SOB at end of 1st bout Technique 1: Sit to stand and Stand to sit Transfer Level of Assistance 1: Contact Guard and Close Supervision Trials/Comments1: X4 using RW Transfer to 2: Wheelchair Transfer from 2: Bed Technique 2: Stand pivot Transfer Level of Assistance 2: Close Supervision Trials/Comments 2: Using RW, PT with assist to manage IV line Surface: Indoor, Smooth surfaces and Even surface Wheelchair Propulsion Level of Assistance: Total Assistance/Dependent Wheelchair Analysis: PT dependently transported patient room <> therapy gym, utilizing this time to establish goals for session then re-assess pain levels Seated Position: SciFit using BL LE for strength/endurance benefits, level 1.0 x90 ; limited by signifcant SOB, SpO2 99% Therapeutic Activities and Neuromuscular Re-education: Performed the following standing exercises with BL UE support on the bennett bar to improve strength and endurance: -side stepping toward L 10' then toward R 10', x2 trials w/o seated rest break, limited by fatigue and mild SOB, CGA Performed the following w/o UE support to maximize balance: -balloon tapping ~2', CGA-min A to steady Skin Check: Skin check before treatment and Skin check after treatment Modalities type: Hot pack Modalities location: Lumbar region Modalities time: 15 minutes PT Treatment Outcomes:: Improved ambulation performance, Improving overall functional endurance noted, Patient is progressing toward STG, Pain limiting patient progress, Patient tolerated session fair and Goals met for this session PT Summary:: Session focused on bed mobility, transfers, gait, LE strength/endurance training and balance training. Patient with good progress in therapy at this time, increasing ambulation enduranceto nearly 200' during single bout; also able to initiate side stepping and balloon tapping at bennett b ar. Limited by significant LBP this session; continue to address deficits for safe home discharge. PT Summary Plan of Care: Continue with current plan of care Pain Evaluation and Follow-up Response to Therapy Interventions: Improved activity tolerance (11/03/24 1603) Pain Reassessment: 8 (11/03/24 1603) Nursing notified of patient's pain assessment: Primary Nurse (11/03/24 1603) Patient left in w/c in room with prepared to assist with toileting needs (pink sign with Fabiana's name previously hung), no further needs by this PT. Therapy Minutes Individual Concurrent Co-Treat Individual (PT) Time In : 1518 Time Out: 1603 Total Time with Patient (Min): 45 min BELINDA LARSEN, PT 11/03/2024 * OT Treatment Note - Samuel Kaiser OT - 11/03/2024 1:00 PM EDT Occupational Therapy Treatment Patient Name: Charles Blandon Patient Birthdate: 1955 Patient Subjective Report - Patient laying in bed upon arrival, agreeable to OT session. Pain Assessment Pain Context: Therapy Assessment Prior to Treatment (11/03/24 1300) Pain Assessment: NRS 0-10 (11/03/24 1300) Pain Score: 7 - Severe Pain (11/03/241299) Pain Severity - NRS (Calculated): Severe (11/03/241299) Pain Type: Acute pain (11/03/241299) Pain Location: Abdomen (11/03/241299) Pain Orientation: Upper (11/03/241299) Pain Descriptors: Sore (11/03/241299) Pain Onset: Ongoing (11/03/241299) Pain Frequency: Constant/continuous (07/20/25 1300) Aggravating Factors: Activity Duration, Positioning, Weakness (11/03/241299) Functional Impact: Self care/ADL's, Ambulation, Transfers (11/03/241299) Pre-therapy pain intervention required: Patient expressed pain is tolerable/able to proceed (11/03/241299) Pain Interventions Education Provided: Patient (11/03/241299) Non-Pharmacologic Pain Interventions: Distractions, Exercise/Activity (11/03/241299) Emotional/Spiritual Pain Interventions: Empathetic Discussion (11/03/241299) ADL Status: Toileting: Moderate Assistance Toileting Where Assessed: Toilet Toilet Comments: Mod A for toileting hygiene and LB clothing management, patient's assisted with toileting d/t patient declining OT assistance Toilet Transfer: Close Supervision Toilet Transfer to: Standard bedside commode Toilet Transfer From: Stand Toilet Transfer Technique: Sit to stand and Ambulatory Toilet Transfers Comments: Use of grab bar and RW Bed, Chair, Wheelchair Transfer: Close Supervision Bed/Chair Transfer to: Stand Bed/Chair Transfer from: Bed and Wheelchair Bed/Chair Transfer Technique: Sit to stand and Stand pivot Bed/Chair Transfer Status: With verbal cues required/provided and With stand by assist Assistive Devices Used: Walker Bed/Chair Transfer Comments: Supervision for STS and stand pivot transfers with RW Bed Mobility: Short sit to - from supine Bed Mobility Level of Assistance: Distant Supervision Bed Mobility Comment: Patient able to tolerate supine <> sit transfers with distant supervision. OT Therapeutic Activity: Therapeutic Exercise: Patient challenged with BUE exercises with 2lb weight. Patient completes 15 reps x 10 sets of exercises for chest presses, bicep curls, shoulder flexion, and shoulder horizontalabduction. Patient able to tolerate 10 reps x 2 sets of shoulder presses, before increased fatigue.Patient with fair tolerance to BUE exercises, requiring Min rest breaks between sets. Treatment, Outcomes and Plan: OT Narrative:: OT session focused on endurance, transfers, and strengthening. Patient left laying in bed with all items within reach. OT Treatment Outcomes:: Safety device reapplied, Patient tolerated treatment well, Improved safety awareness, Improved ability to perform functional transfers, Increased strength or muscular endurance (comment on location), Improved balance and coordination and Improved overall functional endurance, reduced rest frequency OT Summary Plan of Care: Continue with current plan of care Pain Evaluation and Follow-up Pain Reassessment: 7 (11/03/24 1344) Nursing notified of patient's pain assessment: Primary Nurse (11/03/24 1344) Therapy Minutes Individual Concurrent Co-Treat Individual (OT) Time In : 1300 Time Out: 1345 Total Time with Patient (Min): 45 min SAMUEL KAISER OT 11/03/2024 * OT Treatment Note - Samuel Kaiser OT - 11/03/2024 10:30 AM EDT Occupational Therapy Treatment Patient Name: Charles Blandon Patient Birthdate: 1955 Patient Subjective Report - Patient laying in bed upon arrival. Patient agreeable for OT session for showering task. Pain Assessment Pain Context: Therapy Assessment Prior to Treatment (11/03/24 103) Pain Assessment: NRS 0-10 (11/03/24 103) Pain Score: 7 - Severe Pain (11/03/24 103) Pain Severity - NRS (Calculated): Severe (11/03/24 103) Pain Location: Abdomen (11/03/24 103) Pain Orientation: Upper (11/03/241032) Pain Descriptors: Sore (11/03/24 1033) Pain Onset: Ongoing (11/03/24 103) Pain Frequency: Constant/continuous (11/03/24 103) Aggravating Factors: Activity Duration, Positioning (11/03/24 103) Functional Impact: Ambulation, Transfers, Self care/ADL's (11/03/24 103) Pre-therapy pain intervention required: Patient expressed pain is tolerable/able to proceed (11/03/24 103) Pain Interventions Education Provided: Patient (11/03/24 103) Non-Pharmacologic Pain Interventions: Distractions, Exercise/Activity (11/03/24 103) Emotional/Spiritual Pain Interventions: Empathetic Discussion (11/03/24 103) ADL Status: Grooming: Close Supervision Grooming Where Assessed: Sitting at sink Grooming Comments: Patient able to set up tooth paste on tooth brush for oral hygiene Bathing: Moderate Assistance Bathing Where Assessed: Sponge bath seated in chair Bathing Comments: Patient able to complete wash/drying with upper and lower legs and UB. Patient requires Max A for washin/drying of feet, back, and buttocks. Patient required set up of wash cloths Dressing Upper Body: Minimal Assistance Upper Body Dressing Where Assessed: Sitting in chair Upper Body Dressing Comments: Min A for pulling down shirt in back and set up of shirt Dressing Lower Body: Maximal Assistance Lower Body Dressing Where Assessed: Sitting in chair Lower Body Dressing Comments: Patient required Max A for threading of legs into pants and pulling up over hips, patient able to partially assist with pulling up over hips, patient also don 1 out of 2socks, using figure four positioning, donned 1 sock before therapist cued patient to attempt independently Shower Transfer: Contact Guard Shower Transfer to: Shower seat with back Shower Transfer From: Stand Shower Transfer Technique: Ambulatory and Sit to stand Shower Transfers Comments: Walking into walk-in shower with RW Bed, Chair, Wheelchair Transfer: Close Supervision Bed/Chair Transfer to: Stand Bed/Chair Transfer from: Wheelchair Bed/Chair Transfer Technique: Sit to stand and Stand to sit Bed/Chair Transfer Status: With verbal cues required/provided and With stand by assist Assistive Devices Used: Walker ADL Training: ADL Training Narrative: Patient and educated on use of figure four positioning for LB dressingand bathing performance and independence. Patient able to utilize figure four position to don sock. OT Therapeutic Activity: Endurance: Patient completed functional mobility from bed > shower within room with supervision from therapist and use of RW. Skin Issues Narrative: Drain and PICC covered during showering task. Patient reports irritation andsoreness on buttocks during LB bathing. Treatment, Outcomes and Plan: OT Narrative:: OT session focused on ADLs, including bathing, grooming, and dressing tasks. Patientleft laying in bed with all items within reach. OT Treatment Outcomes:: Safety device reapplied, Patient tolerated treatment well, Improved ADL performance, Improved ability to perform functional transfers, Improved overall functional endurance, reduced rest frequency, Improved balance and coordination and Improved safety awareness OT Summary Plan of Care: Continue with current plan of care Pain Evaluation and Follow-up Pain Reassessment: 7 (11/03/24 6520) Nursing notified of patient's pain assessment: Primary Nurse (11/03/24 3318) Therapy Minutes Individual Concurrent Co-Treat Individual (OT) Time In : 1030 Time Out: 1115 Total Time with Patient (Min): 45 min SAMUEL KAISER OT 11/03/2024 * PT Treatment Note - Belinda Larsen, PT - 11/03/2024 8:48 AM EDT PT Treatment Patient Name: Charles Blandon Patient Birthdate: 1955 Patient Subjective Report - Patient found in bed with RN providing med pass, Fabiana present at bedside. Patient agreeable to session, endorsing pain in abdomen from ascites. PT donned mask throughout session; patient denied donning upon leaving room despite PT education onimmunosuppression. Pain Assessment Pain Context: Therapy Assessment During Treatment (11/03/24931) Pain Assessment: NRS 0-10 (11/03/24848) Pain Score: 5 - Moderate Pain (11/03/24848) Pain Severity - NRS (Calculated): Moderate (11/03/24848) Pain Type: Acute pain (11/03/24848) Pain Location: Abdomen (11/03/24848) Pain Descriptors: Sore, Other (Comment) ( swelling ) (11/03/24848) Pain Onset: Ongoing (11/03/24848) Pain Frequency: Constant/continuous (11/03/24848) Aggravating Factors: Activity Duration, Anxiety, Positioning (11/03/24848) Pre-therapy pain intervention required: Patient expressed pain is tolerable/able to proceed (11/03/24848) Pain Interventions Education Provided: Patient (11/03/24931) Non-Pharmacologic Pain Interventions: Distractions, Rest (11/03/24931) Emotional/Spiritual Pain Interventions: Emotional Support (11/03/24931) Overall Cognitive Status: Impairments impacting function Comment: Memory deficits Bed Mobility: Short sit to - from supine Bed Mobility Level of Assistance: Close Supervision Bed Mobility Comment: Supine > short sitting EOB with HOB elevated, SUP then weaved BL LE through pant legs to begin LE dressing. PT donned BL shoes and gait belt with education on need to reduce risk of falling prior to transfers Surface: Even surface, Smooth surface, Indoor, Carpet and Uneven surface Assistive Device: RW Ambulation Level of Assistance: Contact Guard and Minimal Assistance Gait Analysis: Ambulated 125' + 185' using RW, CGA by PT and ; demonstrated increased speed andstep length with good heel strike BL, increased SOB toward end of bout. During 2nd bout, able to increase distance, although cues required for safe navigation of device over lip of carpet Rails: Left Stairs Level of Assistance: Contact Guard Stairs Height of Step: 6-inch Stair Analysis: With cues for BL UE support on L HR, cues to ascend with R/descend with L in partial side-stepping pattern, additional reps limited by SOB Number of Steps: 4 Technique 1: Sit to stand and Stand to sit Transfer Level of Assistance 1: Contact Guard Trials/Comments1: X5 during session to/from RW Transfer to 2: Wheelchair Transfer from 2: Bed Technique 2: Ambulatory Transfer Level of Assistance 2: Contact Guard Trials/Comments 2: Upon standing, able to assist in finishing LE dressing. patient with mild unsteadiness w/o UE support, much improved when using AD in standing, CGA by PT with patient endorsing dizziness, SOB noted but able to walk ~3' to w/c Surface: Indoor, Even surface and Smooth surfaces Wheelchair Propulsion Level of Assistance: Total Assistance/Dependent Wheelchair Analysis: PT dependently transported patient room <> therapy gym, utilizing this time to establish goals for session then re-assess pain levels. Also upon return to room, PT issued patient a different standard-sized RW to allow for to collapse more easily. Therapeutic Activities and Neuromuscular Re-education: To improve ankle righting reactions to maximize standing balance: -static standing on foam pad ~3' total, progression from BL > unilateral > no UE support on RW, CGA-min A to steady + cues for centralizing ZAY PT Treatment Outcomes:: Improved ambulation performance, Goals met for this session, Improving overall functional endurance noted, Patient is progressing toward STG and Patient tolerated treatment well PT Summary:: Session focused on transfers, gait, stairs, and standing balance. Patient with good progress in therapy at this time, able to increase ambulation endurance for both bouts and initiate use of foam pad with increased unsteadiness observed. Plan to perform activities at [facility] bar this afternoon including use of hurdles, will also attempt to obtain reclining chair or high back chair to improve patient comfort. PT Summary Plan of Care: Continue with current plan of care Pain Evaluation and Follow-up Response to Therapy Interventions: Improved activity tolerance, Improved mobility (11/03/24931) Pain Reassessment: 7 (11/03/24931) Nursing notified of patient's pain assessment: Primary Nurse (11/03/24931) Patient left in w/c in room with remaining present, needs/call wright within reach. Therapy Minutes Individual Concurrent Co-Treat Individual (PT) Time In : 847 Time Out: 932 Total Time with Patient (Min): 45 min BELINDA LARSEN, PT 11/03/2024 * Plan of Care - Kirsten Crawford RN - 11/02/2024 10:24 PM EDT Problem: Infection Goal: Absence of infection and prevention of transmission during hospitalization Outcome: Progressing Flowsheets (Taken 11/02/20242223) Absence of infection and prevention of transmission during hospitalization: Assess and monitor for signs and symptoms of infection and vital signs Monitor lab/diagnostic results Educate patient/family regarding signs and symptoms of infection Educate patient/family on proper hand washing and infection prevention techniques Problem: Fall Safety: [place] Precautions Goal: Free from fall injury Outcome: Progressing Flowsheets (Taken 11/02/20242223) Free from fall injury: Perform fall risk assessment and identifiers in place (as applicable) Frequent rounding/monitoring Lighting appropriate Put call light within reach and teach how to call for assistance, respond to call light immediately Use of bed/chair alarm Bed low, locked 2 side rails Offer frequent toileting Toilet magnet in place (IR Only) Encourage patient to wear glasses and hearing aids and to use walking aids when ambulating, non skid socks Safe mobility and activity (this could include chair safety) Assess for environmental or other risks * Plan of Care - Odilia Coulter RN - 11/02/2024 10:31 AM EDT Problem: Infection Goal: Absence of infection and prevention of transmission during hospitalization Outcome: Progressing Flowsheets (Taken 11/02/2024 1031) Absence of infection and prevention of transmission during hospitalization: Assess and monitor for signs and symptoms of infection and vital signs Monitor all insertion sites i.e., indwelling lines, tubes and drains, obtain order to remove devicewhen no longer clinically necessary Problem: Fall Safety: [place] Precautions Goal: Free from fall injury Outcome: Progressing Flowsheets (Taken 11/02/2024 1031) Free from fall injury: Perform fall risk assessment and identifiers in place (as applicable) Put call light within reach and teach how to call for assistance, respond to call light immediately * Plan of Care - Michelle Shaw RN - 11/01/2024 8:20 PM EDT Problem: Infection Goal: Absence of infection and prevention of transmission during hospitalization Outcome: Progressing Flowsheets (Taken 10/31/2024 1037 by Jose L Shea, RN) Absence of infection and prevention of transmission during hospitalization: Identify and instruct in appropriate isolation precautions for identified infection/condition, ensure compliance with posted infection prevention precautions Assess and monitor for signs and symptoms of infection and vital signs Problem: Delirium Goal: Prevent and Manage Delirium Outcome: Progressing Problem: Pain Goal: Patient's Pain/Discomfort is Manageable Outcome: Progressing Flowsheets (Taken 10/31/2024 1116 by Suresh Rondon RN) Patient's Pain/Discomfort is Manageable: Provide Emotional/Spiritual Support Assess pain level Include patient/family/caregiver in decisions related to pain management Problem: Potential for Compromised Skin Integrity Goal: Skin integrity is maintained or improved Outcome: Progressing * OT Treatment Note - Jose L Hidalgo OT - 11/01/2024 1:00 PM EDT Occupational Therapy Treatment Patient Name: Charles Blandon Patient Birthdate: 1955 Patient Subjective Report - I just want to be away from people. I hate people. Pain Assessment Pain Context: Therapy Assessment Prior to Treatment (11/01/24 1304) Pain Assessment: NRS 0-10 (11/01/24 130) Pain Score: 8 - Severe Pain (11/01/24 130) Pain Severity - NRS (Calculated): Severe (11/01/241303) Pain Type: Surgical pain (11/01/24 130) Pain Location: Abdomen (11/01/24 130) Pain Orientation: Mid (11/01/24 130) Pain Descriptors: Aching, Sore (11/01/24 130) Pain Onset: Ongoing (11/01/24 130) Pain Frequency: Constant/continuous (11/01/241303) Aggravating Factors: Activity Duration, Anxiety, Positioning (11/01/24 130) Functional Impact: Sitting (11/01/241303) Pre-therapy pain intervention required: Patient expressed pain is tolerable/able to proceed (11/01/24 130) Pain Interventions Education Provided: Patient (11/01/24 130) Non-Pharmacologic Pain Interventions: Exercise/Activity, Position/Reposition (11/01/24 130) Emotional/Spiritual Pain Interventions: Emotional Support (11/01/24 130) Pain Consults Initiated or Completed: Rehab (11/01/241303) ADL Status: Toileting: Minimal Assistance Toileting Where Assessed: Bedside commode Toilet Comments: Pt's manages pants down for pt prior to toileting as pt urinates in standing position and then manages pants up following with CGA Toilet Transfer: Contact Guard Toilet Transfer to: Raised toilet seat with rails Toilet Transfer From: Wheelchair Toilet Transfer Technique: Stand pivot and Sit to stand Toilet Transfers Comments: Performed SPT from > lining sewer front of BSC to urinate in standing position. Pt's provides CGA during stand phase as therapist monitors standing endurance with distant Sup Bed, Chair, Wheelchair Transfer: Contact Guard Bed/Chair Transfer to: Wheelchair Bed/Chair Transfer from: Bed Bed/Chair Transfer Technique: Stand pivot and To right Assistive Devices Used: Walker Bed/Chair Transfer Comments: Pt able to stand from EOB to RW and completes SPT to w/c with CGA Transfer Training: Transfer Narrative: SIT TO STANDS TRANSFER TRAINING: Pt able to push up from w/c armrests to RW to improve strength needed for STS transfer training. Completed x 2 stands with CGA, and progresses to CS. Required increased time in between stands due to QUESADA and recovery. Bed Mobility: Performed on bed and Short sit to - from supine Bed Mobility Level of Assistance: Minimal Assistance and Moderate Assistance Bed Mobility Comment: Supine>sit: Min A for to manage LLE over EOB and pull trunk into sitting. Offered use of leg imitation marble mechanic for greater IND, pt declines. Sit>supine: pt's assists pt back into lying position OT Therapeutic Activity: Endurance: STANDING TOLERANCE: Pt stood at within RW to build static standing tolerance to engage in functional stand. Activity completed for carryover to prolonged standing required for stand phase of ADLs and IADL performance and to improver overall cardiovascular endurance/activity tolerance.. Pt tolerated 2 bouts of standing. Stand 1: 58 sec Stand 2: 1 min (reports needing to toilet upon 2nd stand, went back to room limiting standing act.) Cues for pursed lip breathing while standing to improve endurance 2' QUESADA. Pt's reports baseline dizziness from vertigo, not BP issues. Treatment, Outcomes and Plan: OT Narrative:: Focus of OT session on encouraging building activity tolerance, STS training, and standing tolerance. Pt progresses to stand with CS and transfers with CGA. Tolerates standing about 1 min prior to rest break d/t impaired endurance. Limited by need to toilet this session. Pt's able to assist pt with all functional transfers. Educated pt on PLB throughout session to improve endurance. Pt was left supine in bed with RN in room. OT Treatment Outcomes:: Patient tolerated treatment fairly, Qualitative gains in function, Improvedability to perform functional transfers and Improved balance and coordination OT Summary Plan of Care: Continue with current plan of care Pain Evaluation and Follow-up Response to Therapy Interventions: Improved activity tolerance, Improved mobility, Improved positioning, Improved functional status (11/01/24 1340) Pain Reassessment: 8 (11/01/24 1340) Nursing notified of patient's pain assessment: Primary Nurse (11/01/24 1340) Therapy Minutes Individual Concurrent Co-Treat Individual (OT) Time In : 1300 Time Out: 1345 Total Time with Patient (Min): 45 min JOSE L HIDALGO OT 11/01/2024 * Individualized Overall Plan of Care - David Cruz - 11/01/2024 12:14 PM EDT Images from the original note were not included. INDIVIDUALIZED OVERALL PLAN OF CARE I have reviewed the admitting History and Physical examination on Charles Blandon and monitored the patient's status and progress since the admission. Based on the patient's multi-disciplinary evaluations, deficits, and functional needs, my plan of care is inclusive of the following therapies and associated goals: Physical Therapy The following physical therapy plan of care is recommended for Mr. Blandon PT Plan of Care & Recommendations Evaluation Summary: Patient is a 69 y/o male who presents to [facility] s/p DCD-OLT and drainage of right hydrothorax on 09/09/[address] [facility] on 09/29. Patient presenting to [facility] on 10/07 for worsening abdominal distension/ascites with possible PV thrombus, worsening Shortness of Breath and mildly slurred speech. Past medical history including alcohol-induced cirrhosis, c/b portal HTN, ascites, hepatic encephalopathy (HE), and large esophageal varices (EV), as well as hereditary hemorrhagic telangiectasia (HHT) and Tipton's esophagus (status post basal cell carcinoma excision in 2017) Patient presents with the following impairments: impaired endurance, weakness, balance deficits, SOB. These impairments limit patient's ability to transfer, get in/out of bed, ambulate, and ascend/descend stairs at prior level. 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 Pt lives with spouse in 2 [address] with 3 JESUS. 15 steps to second floor with full bath and bedroom. Pt's spouse purchased recliner for first floor that flattens into bed. Level of Function on Initial Examination: CGA-Meena for transfers, CGA to ambulate 129' with WCF using RW, unable to negotiate stairs. Patient will benefit from inpatient PT to address impairments in order to improve activity independence and facilitate progression toward prior participation level in discharge environment. Plan of care appropriate to be implemented by a director of physical security with supervision provided by an overseeing therapist. Problem List: Decreased endurance; Decreased mobility; Impaired balance; Impaired elevation ability; Impaired transfer ability; Impaired bed mobility; Impaired ambulation ability; Decreased strength; Decreased safety awareness; Pain PT to provide the following services: Aerobic/Endurance conditioning; Balance/proprioceptive training; Body Weight Support System; Fall prevention; Home Exercise Program (HEP) prescription; Therapeutic exercise; Therapeutic activities; Gait training; Elevation training; Education - patient/family; Body mechanics/ergonomics; Adaptive equipment/DME prescription and application; Electrical stimulation - Neuromuscular (NMES); Manual therapy; Neuromuscular re-education; Therapeutic modalities - cold therapy; Therapeutic modalities - heat therapy Frequency: 45-90 minutes 5 out of 7 days Duration (# of Days): 21 Duration Expiration Date: 11/21/24 Responsible Physical Therapist: Jessica Kinsey, PT, DPT Mr. Blandon will achieve the following: Retirement Goals: Car Transfer LTG: Independent Walk 10 Feet LTG: Independent Walk 50 Feet with Two Turns LTG: Independent Walk 150 Feet LTG: Supervision or touching assistance Walking 10 Feet on Uneven Surfaces LTG: Independent 1 Step (Curb) LTG: Independent 4 Steps LTG: Independent 12 Steps LTG: Supervision or touching assistance Picking Up Object LTG: Independent Wheel 50 Feet with Two Turns LTG: Not applicable Wheel 150 Feet LTG: Not applicable Occupational Therapy: The following occupational therapy plan of care is recommended for Mr. Blandon: OT Plan of Care & Recommendations Evaluation Summary: Per chart review, patient is a 69 year old male re-admit with an etiologic diagnosis of Critical Illness Myopathy. Pt has a PMHx significant for alcohol-induced cirrhosis, c/b portal HTN, ascites, hepatic encephalopathy (HE), and large esophageal varices (EV), as well as hereditary hemorrhagic telangiectasia (HHT) and Tipton's esophagus (status post basal cell carcinoma excision in 2017), was recently diagnosed with hepatocellular carcinoma (HCC). Patient presents to [facility] with decreased balance, endurance, overall strength, and independence with I/ADLs and transfers. Patient will benefit from OT services in an intensive skilled setting to address the above deficits PLOF: Pt reports independence c all ADLs prior to last hospitalizations. Pt lives c spouse in 2ST[address] c 3 JESUS c unilateral rail. Pt's bedroom is on the 2nd floor c 15 steps up with a full bathroom that features a tub/shower combo, standard toilet and grab bars. Pt and spouse reports that they bought a recliner chair that will be set up on ground floor, pt can use half bathroom on 1st floor. Home also features a basement that pt does not access. CLOF: Feeding: Set Up Oral Hygiene: Set Up Toileting: Total A Bathing: Max A UB Dressing: Mod A LB Dressing: Total A Footwear: Max A Bed Mobility: Mod A Transfers: Min A Problem List: Activity Tolerance; Functional skill; Mobility; Decreased functional endurance; Decreased functional status in ADL's; Impaired balance; Decreased transfer status; Decreased upper extremity strength; Decreased upper body strength; Decreased fine motor coordination OT to provide the following services: ADL and Transfer Training; UE Therex; Manual Therapy Techniques as Appropriate; Balance Training; Energy Conservation and Activity Modifications; Assistive Technology Education and Training; Wheelchair Safety and Mobility Training; Home Evaluation as needed; Patient/Family Education and Training; Coordination Training; Functional Endurance Training; Home Safety and Modification Education; Adaptive Equipment/DME Education; Modalities to prepare for functional training; OT General Conditioning Exercises & Endurance Training; OT Progressive Resistive Exercise; OT Home Exercise Program Frequency: 45-90 minutes 5 out of 7 days Duration (# of Days): 21 Duration Expiration Date: 11/21/24 Responsible Occupational Therapist: Samuel Kaiser, OTR Mr. Blandon will achieve the following: Type Rolling Machine Operator Goals: Eating LTG: Independent Oral Hygiene LTG: Independent Toileting Hygiene LTG: Independent Shower/Bathe Self LTG: Supervision or touching assistance Upper Body Dressing LTG: Independent Lower Body Dressing LTG: Independent Putting On/Taking Off Footwear LTG: Independent Roll Left and Right LTG: Independent Sit to Lying LTG: Independent Lying to Sitting on Side of Bed LTG: Independent Sit to Stand LTG: Independent Chair/Dnz-ra-Rcoeo Transfer LTG: Independent Toilet Transfer LTG: Independent Speech Therapy: The following speech therapy plan is recommended for Mr. Blandon: SURVEY RODMAN Plan of Care & Recommendations SURVEY RODMAN Evaluation Summary Pt re-admitted to this ARF following hospitalization for worsening abdominal distension/ascites with possible PV thrombus (non-contrast CT), worsening Shortness of Breath (loculated right hydropneumothorax and left moderate pleural effusion) and mildly slurred speech(CT brain negative). 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 No ST services during hospitalization. Pt admitted on regular diet/ thin liquids. During previous ARF admission in September,, pt scored 24/30 on MoCA. Discharged with [facility]. Poor participation during ST tx noted. Per pt report, pt lives at home with spouse. Pt is retired. 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 Pt's spouse does majority of driving and finance management. Pt was assisting with medication management. (+) weekly pill organizer. Pt enjoys golf. Pt denies any s/s Dysphagia, including odynophagia or globus sensation. Pt denies any acute cognitive-communication changes. Cognitive-communication eval completed this date. Pt presents with WFL cognitive-linguistic function. Pt scored 26/30 on MoCA. Score breakdown: visuospatial/executive fx (5/5), naming (3/3), attention (6/6), language (3/3), delayed recall (2/5) and abstraction (2/2), orientation (5/6). Immediate recall (5/5) items. Memory Index Score: 10/15. Pt responsive to category cue x1 and multiple choice cue x2. Generative Namin F words/ 1 min. Per informal assessment, pt demonstrating adequate safety awareness and problem solving. Pt's auditory comprehension WFL. Pt able to follow simple and complex. Multi-step commands and answer complex questions without difficulty. Pt 100% intelligible without any concern for motor-speech or voice deficits. No further ST services rec'd at this time. Please re-consult PRN. CBSE completed this date. Pt seated upright in bed. Pt fed self Assessed tolerance of regular solid and thin liquids via straw. Pt presents with WFL oropharyngeal swallow function. No overt s/s aspiration noted. Pt demonstrating timely, functional mastication. No significant oral residues following swallow observed. Pt observed taking meds whole with thin liquids via straw with no difficulty. Oral mech WFL. Rec'd continue regular and thin liquids. No further ST services rec'd at this time for Dysphagia. Please re-consult PRN. Therapy Recommendations: Speech therapy services not recommended at this time - Re-consult PRN Problem List: Other (comment) n/a Recommended diet: IDDSI 7 - Regular / Regular; IDDSI 0 - Thin Liquids / All Liquids; Pills Can Be Taken with Recommended Liquid Consistency Is patient a candidate for Clinical Free Water Protocol? N/A - patient is on IDDSI 0 (thin liquids/all liquids) - has no liquid consistency restrictions Compensatory Swallowing Techniques Recommended: Alternate solids/liquids-liquid wash; Small sips; Small bites; Eat slowly-control rate; Eat/drink only when awake/alert; Seated upright with all PO intake Level of Supervision at Meals: Monitor at meals and assist as needed SURVEY RODMAN to provide the following services: Other (comment) SURVEY RODMAN to provide the following services: Other (comment) n/a Frequency: Patient not appropriate for speech services- will not see for further treatments at this time Duration (# of Days): -- n/a Duration Expiration Date: -- n/a Responsible Speech Therapist: n/a Mr. Blandon will achieve the following: Type Rolling Machine Operator Goals: Goal Additionally, the patient will receive 24 hour rehabilitation nursing with the following goals: Care Plan Problems/Goals Met: 0 of 7 Met: 0 of 7 Progressing (7) Absence of infection and prevention of transmission during hospitalization (Infection) Prevent and Manage Delirium (Delirium) Free from fall injury (Fall Safety: [place] Precautions) Toilet Magnet Status ([facility] Only) (Fall Safety: [place] Precautions) Patient's Pain/Discomfort is Manageable (Pain) Skin integrity is maintained or improved (Potential for Compromised Skin Integrity) Nutritional status is improving (Potential for Compromised Skin Integrity) Overall, I expect the patient will stay at our facility until approximately 11/13/2024, with an anticipated discharge destination of Patients own home and a tentative discharge plan of Home with home health. Duration for therapy services would last until patient's discharge date unless new orders state otherwise. The patient's overall plan of care and current status continue to justify the patient's hospital inpatient status. I plan to monitor the patient's health and functional status daily, to assure that there is continuing benefit from our care. The patient's progress towards goals and treatment will also be monitoredon an ongoing basis during team conferences. The patient has a good prognosis for benefiting from this program and returning to home and community. DAVID CRUZ DO 11/01/2024 12:14 PM EDT * Plan of Care - Jose L Shea RN - 11/01/2024 11:35 AM EDT Problem: Infection Goal: Absence of infection and prevention of transmission during hospitalization Outcome: Progressing Flowsheets (Taken 10/31/2024 1037) Absence of infection and prevention of transmission during hospitalization: Identify and instruct in appropriate isolation precautions for identified infection/condition, ensure compliance with posted infection prevention precautions Assess and monitor for signs and symptoms of infection and vital signs Problem: Knowledge Deficit Goal: Patient and/or family demonstrate readiness to learn Outcome: Progressing Flowsheets (Taken 10/31/2024 1037) Patient and/ or family demonstrates readiness to learn: Identify learning needs, preferences, skill level and resources available Address any barriers to learning Goal: Patient and/or family verbalizes understanding of education, and/or performs desired skill Outcome: Progressing Flowsheets (Taken 10/31/2024 1037) Patient and/or family verbalizes understanding of education, and/or performs desired skill: Use teach-back method to ensure patient/family understanding Provide patient and/or family educational material that is appropriate. Use pictures and other resources that are available as appropriate Problem: Discharge Planning Goal: Discharge to home or other facility with appropriate resources Outcome: Progressing Flowsheets (Taken 10/31/2024 1037) Discharge to home or other facility with appropriate resources: Refer to Case Management Departmentfor Coordinating discharge planning for if the patient needs post-hospital services based on physician order or complex needs related to functional status, cognitive ability or social support system Goal: 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 and enhance comfort in role Outcome: Progressing Flowsheets (Taken 10/31/2024 1037) Caregiver will develop a plan to decrease their burden and enhance comfort in role: Assist caregiver to assess the required needs of the patient and appraise the situation. Encourage family to have realistic perspective Encourage caregiver to identify strain/burden of caregiving Assist the patient and family to identify and utilize existing resources Problem: Delirium Goal: Prevent and Manage Delirium Outcome: Progressing Problem: Fall Safety: [place] Precautions Goal: Free from fall injury Outcome: Progressing Flowsheets (Taken 10/30/2024 2000 by Aniyah Howell RN) Free from fall injury: Perform fall risk assessment and identifiers in place (as applicable) Put call light within reach and teach how to call for assistance, respond to call light immediately Bed low, locked 2 side rails Lighting appropriate Use of bed/chair alarm Encourage patient to wear glasses and hearing aids and to use walking aids when ambulating, non skid socks Safe mobility and activity (this could include chair safety) Assess for environmental or other risks Fall/safety education for patient/family/SO Goal: Toilet Magnet Status ([facility] Only) Outcome: Progressing Flowsheets (Taken 10/31/2024 1253 by Jessica Anders, PT) Bathroom assistance / Toilet safety magnet posted: Yellow - Observe while in the bathroom Problem: Fall Huddle Goal: Free from Fall Injury Outcome: Progressing Flowsheets (Taken 10/31/2024 1253 by Jessica Anders, PT) Was a Huddle Completed?: Yes Participating Staff - Include your discipline: Nurse PT OT Diet Technician Registered Problem: Pain Goal: Patient's Pain/Discomfort is Manageable Outcome: Progressing Flowsheets (Taken 10/31/2024 1116 by Suresh Rondon RN) Patient's Pain/Discomfort is Manageable: Provide Emotional/Spiritual Support Assess pain level Include patient/family/caregiver in decisions related to pain management Problem: Potential for Compromised Skin Integrity Goal: Skin integrity is maintained or improved Outcome: Progressing Flowsheets (Taken 10/31/2024 1116 by Suresh Rondon RN) Skin Integrity is Maintained or Improved: Keep skin clean and dry Goal: Nutritional status is improving Outcome: Progressing Flowsheets (Taken 10/31/2024 1116 by Suresh Rondon RN) Nutritional Status is Improving: Allow adequate time for meals Encourage patient to take supplement as ordered Include patient/family/caregiver in decisions Collaborate with clinical upholstery instructor * OT Treatment Note - Samuel Kaiser OT - 11/01/2024 11:15 AM EDT Occupational Therapy Treatment Patient Name: Charles Blandon Patient Birthdate: 1955 Patient Subjective Report - Patient laying in bed upon arrival, reporting moderate fatigue, but agreeable to OT session. Patient's , Fabiana, present for session. Pain Assessment Pain Context: Therapy Assessment Prior to Treatment (11/01/24 111) Pain Assessment: NRS 0-10 (11/01/24 111) Pain Score: 8 - Severe Pain (11/01/24 111) Pain Severity - NRS (Calculated): Severe (11/01/241115) Pain Type: Surgical pain (11/01/24 111) Pain Location: Abdomen (11/01/24 111) Pain Orientation: Mid (11/01/24 111) Pain Descriptors: Aching, Discomfort (11/01/24 111) Pain Onset: Ongoing (11/01/24 111) Pain Frequency: Constant/continuous (11/01/24 111) Aggravating Factors: Activity Duration (11/01/241115) Functional Impact: Ambulation, Transfers (11/01/241115) Pre-therapy pain intervention required: Patient expressed pain is tolerable/able to proceed (11/01/241115) Pain Interventions Education Provided: Patient (11/01/241115) Non-Pharmacologic Pain Interventions: Distractions, Exercise/Activity (11/01/241115) Emotional/Spiritual Pain Interventions: Empathetic Discussion (11/01/241115) ADL Status: Eating: Setup Eating Where Assessed: Supine, bed Feeding Comments: Patient required set up and cues for encouragement to eat meal, patient reports not liking mac and cheese that was brought to room Grooming: Setup Grooming Where Assessed: Sitting at sink Grooming Comments: provided set up for oral hygiene sitting at sink, patient unable to tolerate standing grooming Dressing Lower Body: Total Assistance/Dependent Lower Body Dressing Where Assessed: Supine in bed Lower Body Dressing Comments: Max A for donning of socks, after socks were donned in bed, patient demonstrated ability to achieve figure four positioning, patient educated on use of figure four psoitioning for improved LB dressing performance, patient reports my doesn't work, she can help me do it Bed, Chair, Wheelchair Transfer: Contact Guard Bed/Chair Transfer to: Stand Bed/Chair Transfer from: Wheelchair and Bed Bed/Chair Transfer Technique: Sit to stand Bed/Chair Transfer Status: With verbal cues required/provided and With stand by assist Assistive Devices Used: Walker Bed/Chair Transfer Comments: Use of RW ADL Training: ADL Training Narrative: Educated on AE used for improved LB dressing and LB bathing tasks. Patient educated on use of figure four positioning for LB dressing and patient able to achieve figure four position. Therapist reviewed with patient and , use of AE as needed to improved independence. Transfer Training: Transfer Narrative: Patient required cues for initiating transfer d/t patient not recalling what activity we were going to do next. Bed Mobility: Short sit to - from supine Bed Mobility Level of Assistance: Close Supervision Bed Mobility Comment: Supervision for supine <> sit transfer, patient did not require physical assistance for bed mobility. OT Therapeutic Activity: Therapeutic Exercise: Patient challenged with BUE exercises with 1lb weight. Patient completes 10 reps x 4 sets of exercises, for shoulder presses, chest presses, bicep curls, and shoulder flexion.Patient with fair tolerance to BUE exercises, requiring 1-2 minute rest breaks between sets. Patient required encouragement for continued participation in task. Patient reporting I just want to get back into bed Endurance: Patient completes mobility with RW from bed > bathroom with CGA and use of RW. Patient required seated rest break once in bathroom d/t fatigue from short distance mobility. Patient cued for use of pursed lip breathing throughout session for improved endurance and decreased symptoms of SOB. Patient required verbal cues to initiate pursed lip breathing when symptoms of SOB begun. Patient Education: DME discussed with patient and , including tub transfer bench and arm rails around toilet at home for improved safety and ADL performance. Patient and understanding of education about DME. Treatment, Outcomes and Plan: OT Narrative:: Patient with moderate fatigue during activities, requiring rest breaks and use of pursed lip breathing. Patient educated on use of AE for improved ADL performance. Patient left laying in bed with all items within reach. OT Treatment Outcomes:: Patient tolerated treatment fairly, Improved balance and coordination, Increased strength or muscular endurance (comment on location), Improved ability to perform functional transfers, Improved ADL performance, Improved overall functional endurance, reduced rest frequency and DME ordered (comment) OT Summary Plan of Care: Continue with current plan of care Pain Evaluation and Follow-up Pain Reassessment: 7 (11/01/24 1873) Nursing notified of patient's pain assessment: Primary Nurse (11/01/24 4020) Therapy Minutes Individual Concurrent Co-Treat Individual (OT) Time In : 1115 Time Out: 1200 Total Time with Patient (Min): 45 min SAMUEL KAISER OT 11/01/2024 * Plan of Care - MAYRELLEN Gorman - 11/01/2024 11:09 AM EDT Problem: Malnutrition Description: Inadequate intake of protein and/or energy sufficient to negatively impact growth/development, and/or result in loss of fat or muscle stores. Related to: Inadequate energy intake, Interpretation of weight loss from baseline, Body fat loss, Muscle mass loss, Fluid accumulation, and acute illness/hospitalization As evidenced by: NFPE, self report of poor appetite, weight loss, transplant/surgery Goal: Increase Caloric Intake Outcome: Progressing Flowsheets (Taken 11/01/2024 1107) Nutrition Education Application: Nutrition-related laboratory result interpretation education Collaboration and Referral of Nutrition Care: Collaboration with Interdisciplinary Team Meals and Snacks: General healthful diet Medical Food Supplement Therapy: (pt declines Ensure or other protein modular options) Commercial beverage/Oral nutrition supplement Vitamin and Mineral Supplement Therapy: (recommend multivitamin, on MagOx) Multi-Vitamin Mineral Feeding Assistance Management: Menu selection assistance Nutrition-Related Medication Management: (remeron) Nutrition-related medication Indicator/Monitor: pt to meet >= 75% estimated needs monitor weights, I/O, labwork/lytes, bowel function/stooling pattern * PT Treatment Note - Olvin Arce, PT - 11/01/2024 10:30 AM EDT PT Treatment Patient Name: Charles Blandon Patient Birthdate: 1955 Patient Subjective Report - Pt supine in bed at start of session, agreeable to therapy this AM. Neutropenic precautions maintained by PT, patient denies. Pain Assessment Pain Context: Therapy Assessment Prior to Treatment (11/01/24 1030) Pain Assessment: NRS 0-10 (11/01/24 1030) Pain Score: 7 - Severe Pain (11/01/24 1030) Pain Severity - NRS (Calculated): Severe (11/01/24 1030) Pain Type: Surgical pain (11/01/24 1030) Pain Location: Abdomen (11/01/24 1030) Pain Orientation: Mid (11/01/24 103) Pain Descriptors: Aching (11/01/24 103) Pain Onset: Ongoing (11/01/241029) Pain Frequency: Constant/continuous (11/01/241029) Aggravating Factors: Activity Duration (11/01/241029) Functional Impact: Ambulation, Transfers (11/01/241029) Pre-therapy pain intervention required: Patient expressed pain is tolerable/able to proceed, Nurse notified (11/01/241029) Pain Interventions Education Provided: Patient (11/01/241029) Non-Pharmacologic Pain Interventions: Exercise/Activity, Distractions (11/01/241029) Emotional/Spiritual Pain Interventions: Empathetic Discussion (11/01/241029) Pain Consults Initiated or Completed: Rehab (11/01/241029) Vital Signs Pulse: 71 (11/01/24 1058) Heart Rate Source: Monitor (11/01/24 105) BP: 112/72 (11/01/24 1058) MAP (mmHg): 85.33 (11/01/24 1058) BP Location: Left arm (11/01/241057) BP Method: Automatic (11/01/24 105) Patient Position: Sitting (11/01/24 1058) Oxygen Context: Sitting (11/01/24 1058) SpO2: 94 % (11/01/24 1058) O2 Device: None (Room air) (11/01/24 105) Bed Mobility: Short sit to - from supine and Performed on bed Bed Mobility Level of Assistance: Close Supervision and Moderate Assistance Bed Mobility Comment: Pt completes supine > short sit on EOB with SUP Pt completes short sit > supine with assist from spouse for BLE mgmt Surface: Even surface, Smooth surface and Indoor Assistive Device: RW Ambulation Level of Assistance: Contact Guard Distance (feet): 15 Gait Analysis: Pt ambulates 15 ft x1 with RW and CGA for steadying with spouse, Fabiana, providing assist from w/c > bathroom. Rails: Bilateral Assistive Device: No device Stairs Level of Assistance: Contact Guard Stairs Height of Step: 6-inch Stair Analysis: Pt negotiates 3, 6-inch steps with BHR leadign with RLE initial trial up and LLE down retro; second bout x3 leads with LLE up and RLE down. Pt completes with CGA for steadying, increaed diffculty noted with LLE lead vs RLE. Number of Steps: 3 Transfer to 1: Wheelchair Transfer from 1: Bed Technique 1: Stand pivot and To right Transfer Level of Assistance 1: Contact Guard Trials/Comments1: CGA for steadying with standf from elevated bed surface, cues for hand placement Transfer to 2: Stand Transfer from 2: Toilet Technique 2: Stand to sit and Sit to stand Transfer Level of Assistance 2: Contact Guard Trials/Comments 2: CGA from spouse, assisting with pericare and brief donning Seated Position: 3x10 LAQ alt LE; hip marches alt LE 3x10; to improve BLE strength/endurance Activity comment: Increased time requires between activities d/t increased fatigue. Issued ALMAS hose to assist with hemodynamic stability with education on hypotension relation to fatigue. Pt and spouse deny OH as tested at hospital, may benefit from reassessment. Skin Issues Narrative: All visible bony prominences inspected throughout session and no changes in skin integrity noted as well as no concerns reported from patient. PT Treatment Outcomes:: Goals met for this session, Patient is progressing toward STG, Patient tolerated treatment well, Qualitative gains in function, Safety device reapplied, Increasing strength and Increased ROM PT Summary:: Session focused on stair training and BLE strengthening. Pt demonstrates improvements in participation with spouse encouragement and increased rest breaks btw activity. Pt will continue to benefit from increased therapy focused on continued endurance with ambulation and strength for stair training (3 JESUS). . Pt seated in w/c at end of session with safety measures in place for handoff to OT. PT Summary Plan of Care: Continue with current plan of care Pain Evaluation and Follow-up Response to Therapy Interventions: Improved activity tolerance, Improved mobility, Decreased complaints of pain (11/01/24 111) Pain Reassessment: 7 (11/01/241114) Nursing notified of patient's pain assessment: Primary Nurse (11/01/241114) Therapy Minutes Individual Concurrent Co-Treat Individual (PT) Time In : 1030 Time Out: 1115 Total Time with Patient (Min): 45 min OLVIN ARCE, PT 11/01/2024 * PT Treatment Note - Jessica Kinsey, PT - 11/01/2024 8:15 AM EDT PT Treatment Patient Name: Charles Blandon Patient Birthdate: 1955 Patient Subjective Report - Pt encountered supine in bed, pleasant and agreeable to therapy session. Pt's spouse Fabiana present. Neutropenic precautions maintained. Pain Assessment Pain Context: Therapy Assessment Prior to Treatment (11/01/24814) Pain Assessment: NRS 0-10 (11/01/24814) Pain Score: 8 - Severe Pain (11/01/24814) Pain Severity - NRS (Calculated): Severe (11/01/24814) Pain Type: Chronic pain (11/01/24814) Pain Location: Abdomen (11/01/24814) Pain Orientation: Left (11/01/24814) Pain Descriptors: Aching (11/01/24814) Pain Onset: Ongoing (11/01/24814) Pre-therapy pain intervention required: Patient expressed pain is tolerable/able to proceed, Nurse notified (11/01/24814) Pain Interventions Non-Pharmacologic Pain Interventions: Exercise/Activity, Distractions (11/01/24814) Emotional/Spiritual Pain Interventions: Emotional Support (11/01/24814) Overall Cognitive Status: Impairments impacting function Comment: Impaired memory, mild agitation at times when unsure of instuction. Bed Mobility: Performed on bed Bed Mobility Level of Assistance: Minimal Assistance Bed Mobility Comment: Supine to sit with Meena for trunk righting Surface: Even surface and Indoor Assistive Device: RW Ambulation Level of Assistance: Contact Guard Distance (feet): 108 Gait Analysis: 108 ft x2 with RW and CGA to monitor balance. Pt demos reciprocal gait pattern, mildincrease in toe out bilat, and kyphotic posture. Distance limited by fatigue. Rails: Left Assistive Device: No device Stairs Level of Assistance: Minimal Assistance Stairs Height of Step: 6-inch Stair Analysis: 2 stairs with BUE support on L rail with Meena for steadying. Number of Steps: 2 Family Training Patient and Fabiana completed family training session this date. Fabiana demonstrates good ability toguard patient for transfers and ambulation. Cleared to assist patient in room/bathroom (cleared last admission as well). Reviewed management of alarms and w/c parts. Nursing notified. Transfer to 1: Wheelchair Transfer from 1: Bed Technique 1: Stand pivot Transfer Level of Assistance 1: Contact Guard Trials/Comments1: Bed to w/c stand pivot with RW and CGA Technique 2: Sit to stand and Stand to sit Transfer Level of Assistance 2: Contact Guard Trials/Comments 2: Sit<>stand with RW and CGA Transfer to 3: Toilet Transfer from 3: Wheelchair Technique 3: Ambulatory Transfer Level of Assistance 3: Contact Guard Trials/Comments 3: Patient's spouse assisting patient to toilet with CGA; good safety throughout. Activity comment: Patient requiring therapeutic rest breaks throughout session to manage fatigue and promote muscle recovery. Wheelchair modifications or changes: Issued 18 standard height chair with improved posture noted. PT Treatment Outcomes:: Cues needed for safety and Patient tolerated treatment well PT Summary:: PT session focusing on transfers and gait training. Pt returned to room following therapy session, spouse assisting patient in restroom. PT Summary Plan of Care: Continue with current plan of care Pain Evaluation and Follow-up Pain Reassessment: 8 (11/01/24 0900) Nursing notified of patient's pain assessment: Primary Nurse (11/01/24 0900) Therapy Minutes Individual Concurrent Co-Treat Individual (PT) Time In : 0815 Time Out: 0900 Total Time with Patient (Min): 45 min Missed Minutes : 0 JESSICA KINSEY, PT 11/01/2024 * Plan of Care - Marissa Damian RN - 10/31/2024 8:34 PM EDT Problem: Infection Goal: Absence of infection and prevention of transmission during hospitalization Outcome: Progressing Flowsheets (Taken 10/31/2024 1037 by Jose L Shea, LEO) Absence of infection and prevention of transmission during hospitalization: Identify and instruct in appropriate isolation precautions for identified infection/condition, ensure compliance with posted infection prevention precautions Assess and monitor for signs and symptoms of infection and vital signs Note: In progress. Problem: Knowledge Deficit Goal: Patient and/or family demonstrate readiness to learn Outcome: Progressing Goal: Patient and/or family verbalizes understanding of education, and/or performs desired skill Outcome: Progressing Problem: Discharge Planning Goal: Discharge to home or other facility with appropriate resources Outcome: Progressing Goal: 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 and enhance comfort in role Outcome: Progressing Problem: Delirium Goal: Prevent and Manage Delirium Outcome: Progressing Problem: Fall Safety: [place] Precautions Goal: Free from fall injury Outcome: Progressing Goal: Toilet Magnet Status ([facility] Only) Outcome: Progressing Problem: Fall Huddle Goal: Free from Fall Injury Outcome: Progressing Problem: Pain Goal: Patient's Pain/Discomfort is Manageable Outcome: Progressing Problem: Potential for Compromised Skin Integrity Goal: Skin integrity is maintained or improved Outcome: Progressing Goal: Nutritional status is improving Outcome: Progressing * Plan of Care - Jessica Anders, PT - 10/31/2024 12:54 PM EDT Problem: Fall Safety: [place] Precautions Goal: Free from fall injury Outcome: Progressing Flowsheets (Taken 10/30/20241999 by Aniyah Howell, RN) Free from fall injury: Perform fall risk assessment and identifiers in place (as applicable) Put call light within reach and teach how to call for assistance, respond to call light immediately Bed low, locked 2 side rails Lighting appropriate Use of bed/chair alarm Encourage patient to wear glasses and hearing aids and to use walking aids when ambulating, non skid socks Safe mobility and activity (this could include chair safety) Assess for environmental or other risks Fall/safety education for patient/family/SO Note: Level 2 mobility NSF, gait belt and RW for all transfers and mobility CGA-Meena depending on fatigue Yellow toileting magnet Bed and chair alarms Neutropenic precautions Goal: Toilet Magnet Status ([facility] Only) Flowsheets (Taken 10/31/2024 1253) Bathroom assistance / Toilet safety magnet posted: Yellow - Observe while in the bathroom Problem: Fall Huddle Goal: Free from Fall Injury Flowsheets (Taken 10/31/2024 1253) Was a Huddle Completed?: Yes Participating Staff - Include your discipline: Nurse PT OT Diet Technician Registered * Wound Progress Note - Suresh Rondon RN - 10/31/2024 11:17 AM EDT Wound Progress Note Reason for wound Consult: Initial consult Patient is awake, alert, and oriented x4 Charles Blandon is a 69 y.o. male with the following Problems. Patient Active Problem List Diagnosis Critical illness myopathy Past Medical History: Past Medical History: Diagnosis Date Cancer Confusion Dizziness Hypertension Tremor Past Surgical History: Past Surgical History: Procedure Laterality Date ABDOMINAL SURGERY Allergies: Patient has no known allergies. Rock Score: Rock Scale Score: 12 Wound/Ulcer Assessment: Recommendations: 10/31/2024, 0930, I met with patent, fabiana, and Aniket BEDOYA to discuss the wound plan of care including: Introduced the patient and family to the wound team members, wound team availability and how to contact the wound care team Reviewed Prevention Plan of Care Discuss importance of pain control, repositioning/ offloading, utilizing the harry form positioner/ Harry lock positioner and prevalon boots to assist with preventing wound. Discuss low ROCK/ HIGH skinrisk with team and pt/ family. Addressed questions or concerns Signature: SURESH RONDON RN Date: 10/31/2024 Time: 11:17 AM EDT * Plan of Care - Suresh Rondon RN - 10/31/2024 11:17 AM EDT Problem: Pain Goal: Patient's Pain/Discomfort is Manageable Outcome: Not Progressing Flowsheets (Taken 10/31/2024 1116) Patient's Pain/Discomfort is Manageable: Provide Emotional/Spiritual Support Assess pain level Include patient/family/caregiver in decisions related to pain management Problem: Potential for Compromised Skin Integrity Goal: Nutritional status is improving Outcome: Not Progressing Flowsheets (Taken 10/31/2024 1116) Nutritional Status is Improving: Allow adequate time for meals Encourage patient to take supplement as ordered Include patient/family/caregiver in decisions Collaborate with clinical upholstery instructor Problem: Potential for Compromised Skin Integrity Goal: Skin integrity is maintained or improved Outcome: Progressing Flowsheets (Taken 10/31/20241115) Skin Integrity is Maintained or Improved: Keep skin clean and dry * PT Initial Evaluation - Jessica Anders, PT - 10/31/2024 11:15 AM EDT Physical Therapy Evaluation Patient Name: Charles Blandon Patient Birthdate: 1955 Pain Assessment Pain Context: Therapy Assessment Prior to Treatment (10/31/241115) Pain Assessment: NRS 0-10 (10/31/241115) Pain Score: 7 - Severe Pain (10/31/241115) Pain Severity - NRS (Calculated): Severe (10/31/241115) Lyons Agitation Sedation Scale (RASS)/CAM-S: Alert and calm (spontaneously pays attention to caregiver) (10/31/241115) Pain Type: Chronic pain (10/31/241115) Pain Location: Rib Cage (10/31/241115) Pain Orientation: Left (10/31/241115) Pain Descriptors: Aching (10/31/241115) Pain Onset: Ongoing (10/31/241115) Pain Frequency: Constant/continuous (10/31/241115) Pre-therapy pain intervention required: Patient expressed pain is tolerable/able to proceed (10/31/241115) Pain Interventions Education Provided: Patient (10/31/241115) Non-Pharmacologic Pain Interventions: Distractions, Exercise/Activity (10/31/241115) Emotional/Spiritual Pain Interventions: Empathetic Discussion (10/31/241115) Home Living Type of Home: House (10/31/24915) # steps into the home: 3 (c unilateral handrail) (10/31/24915) Home Layout: Two level (10/31/24915) Bathroom Shower/Tub: Tub/shower unit (10/31/24915) Bathroom Equipment: Grab bars in shower (10/31/24915) Bathroom Accessibility: Full bath second floor, Half bath first floor (10/31/24915) Home Evaluation Required?: To be assessed (10/31/24915) Home Living Comments: Pt lives c spouse in 2STH c 3 JESUS c unilateral rail. Pt's bedroom is on the 2nd floor c 15 steps up with a full bathroom that features a tub/shower combo, standard toilet and grab bars. Pt and spouse reports that they bought a recliner chair that will be set up on ground floor, pt can use half bathroom on 1st floor. Home also features a basement that pt does not access. (10/31/24915) Prior Function Level of [place]: Independent with ambulation (10/31/24915) Lives With: Spouse (10/31/24915) Receives Help From: Family (10/31/24915) Vocational: Retired (10/31/24915) Patient Subjective Report - Pt greeted in his room supine in bed. Pt reports pain in L rib cage, but is agreeable to scheduled therapy with motivation. Posture: Impaired Impaired Posture: Forward Head and Rounded Shoulders Is Edema Present: Yes RLE: Severity 2+ LLE: Severity 2+ Light Touch: No apparent deficits Sharp/Dull: No apparent deficits Current Vision: Wears glasses only for reading Bed Mobility: Performed on bed and Short sit to - from supine Bed Mobility Level of Assistance: Moderate Assistance Bed Mobility Comment: ModA to transition from supine to sitting EOB with PT assisting to pull trunkinto upright. Supervision to return to supine from sitting EOB. Surface: Indoor, Even surface and Smooth surface Assistive Device: RW Ambulation Level of Assistance: Contact Guard and Total Assistance/Dependent Distance (feet): 129 Gait Analysis: Pt ambulates 129' with RW and CGA from PT with WCF for safety. Pt demo's good step length, camille and reciprocal gait pattern with appropriate posture and maneuverability of RW. Pt limited by endurance. Transfer to 1: Wheelchair and Bed Transfer from 1: Bed and Wheelchair Technique 1: Stand pivot Transfer Level of Assistance 1: Contact Guard Trials/Comments1: CGA to complete SPT from bed<>WC using RW. Transfer to 2: Car and Wheelchair Transfer from 2: Wheelchair and Car Technique 2: Stand pivot Transfer Level of Assistance 2: Minimal Assistance Trials/Comments 2: Meena to complete SPT from WC<>Car for lifting to stand from passenger seatd/t fatigue. Transfer to 3: Sit and Stand Transfer from 3: Stand and Sit Technique 3: Sit to stand and Stand to sit Transfer Level of Assistance 3: Contact Guard and Minimal Assistance Trials/Comments 3: CGA-Meena to complete sit<>stand from WC<>RW pending fatigue. Wheelchair Analysis: TotalA to propel [facility] RLE: Full weight-bearing LLE: Full weight-bearing RUE: Full weight-bearing LUE: Full weight-bearing Activity Type: Standing Activity Endurance: Good Activity comment: Pt stands near toilet with CGA from PT to attempt to void with LUE supported on grab bar. Pt able to complete LB dressing in standing. RLE Assesment: Exceptions to WFL (grossly 4/5) Tone RLE: Within Functional Limits LLE Assessment: Exceptions to WFL (grossly 4/5) Tone LLE: Within Functional Limits Wheelchair Type: Standard Wheelchair Size: 18 Wheelchair Cushion Type: Foam Safety Devices: Rear Anti-Tippers and Seatbelt Safety Devices Narrative: Patient demonstrates ability to doff wheelchair seatbelt independently. Skin Issues Narrative: PT assessed bilateral heels for skin breakdown, blanchable redness noted bilaterally. See nursing/OT report for in depth skin breakdown assessment. Patient's and/or Caregiver's Goals: Goals (in their own words): To go home. Goals Generated By: Patient generated response independently Mobility Assessment: Car Transfer Assistance Needed: Physical assistance Physical Assistance Level: 25% or less Car Transfer - CARE Score: 3 Walk 10 Feet Assistance Needed: Incidental touching Physical Assistance Level: Total assistance Comment: [facility] [place] Walk 10 Feet - CARE Score: 1 Walk 50 Feet with Two Turns Assistance Needed: Incidental touching Physical Assistance Level: Total assistance Comment: [facility] [place] Walk 50 Feet with Two Turns - CARE Score: 1 Walk 150 Feet Reason if not Attempted: Safety concerns Walk 150 Feet - CARE Score: 88 Walking 10 Feet on Uneven Surfaces Reason if not Attempted: Safety concerns Walking 10 Feet on Uneven Surfaces - CARE Score: 88 1 Step (Curb) Reason if not Attempted: Safety concerns 1 Step (Curb) - CARE Score: 88 4 Steps Reason if not Attempted: Safety concerns 4 Steps - CARE Score: 88 12 Steps Reason if not Attempted: Safety concerns 12 Steps - CARE Score: 88 Picking Up Object Reason if not Attempted: Safety concerns Picking Up Object - CARE Score: 88 Wheel 50 Feet with Two Turns Physical Assistance Level: Total assistance Wheel 50 Feet with Two Turns - CARE Score: 1 Type of Wheelchair/Scooter: Manual Wheel 150 Feet Physical Assistance Level: Total assistance Wheel 150 Feet - CARE Score: 1 Type of Wheelchair/Scooter: Manual CARE Score David: 6: Independent. [place] provides no assistance with tasks. A device may or may not have been used. 5: Set-up or clean-up assistance. [place] sets up or cleans up, but does not assist with tasks. [place] may have assisted prior to or following the activity. 4: Supervision or touching assistance. [place] provides verbal cues or touching/steadying or contactguard assistance. Assistance may be provided throughout the activity or intermittently. 3: Partial/moderate assistance. [place] does less than half the effort. [place] lifts, holds, or supports trunk or limbs, but provides less than half the effort. 2: Substantial/maximal assistance. [place] does more than half the effort. [place] lifts or holds trunk or limbs, and provides more than half the effort. 1: Dependent. [place] does all of the effort, or the assistance of two or more helpers is required for the patient to complete the activity. -: Inconsistent or incomplete documentation Activity not attempted values: 7: Patient refused 9: Not applicable - Not attempted and the patient did not perform this activity prior to the current illness, exacerbation, or injury. 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: Status on Admission Goal Car Transfer - CARE Score: 3 (10/31/24 1236) Car Transfer LTG: Independent (10/31/24 1238) Walk 10 Feet - CARE Score: 1 (10/31/24 1236) Walk 10 Feet LTG: Independent (10/31/24 1238) Walk 50 Feet with Two Turns - CARE Score: 1 (10/31/24 1236) Walk 50 Feet with Two Turns LTG: Independent (10/31/24 1238) Walk 150 Feet - CARE Score: 88 (10/31/24 1236) Walk 150 Feet LTG: Supervision or touching assistance (10/31/24 1238) Walking 10 Feet on Uneven Surfaces - CARE Score: 88 (10/31/24 1236) Walking 10 Feet on Uneven Surfaces LTG: Independent (10/31/24 1238) 1 Step (Curb) - CARE Score: 88 (10/31/24 1236) 1 Step (Curb) LTG: Independent (10/31/24 1238) 4 Steps - CARE Score: 88 (10/31/24 1236) 4 Steps LTG: Independent (10/31/24 1238) 12 Steps - CARE Score: 88 (10/31/24 1236) 12 Steps LTG: Supervision or touching assistance (10/31/24 123) Picking Up Object - CARE Score: 88 (10/31/24 1236) Picking Up Object LTG: Independent (10/31/24 123) Wheel 50 Feet with Two Turns - CARE Score: 1 (10/31/24 123) Wheel 50 Feet with Two Turns LTG: Not applicable (10/31/24 123) Wheel 150 Feet - CARE Score: 1 (10/31/241235) Wheel 150 Feet LTG: Not applicable (10/31/24 [facility]) PT Short Term Goal 1: Focus: Car Transfer Level of Assistance to Meet Short Term Goal: Supervision Expected Achievement Date: 11/04/2024 Goal Status: Established PT Short Term Goal 2: Focus: Walking Level of Assistance to Meet Short Term Goal: Incidental touching Expected Achievement Date: 11/04/2024 Status: Established Walking Distance: 150 feet PT Short Term Goal 3: Focus: Steps Level of Assistance to Meet Short Term Goal: Incidental touching Expected Achievement Date: 11/04/2024 Status: Established Number of Steps: 4 Evaluation Summary: Patient is a 69 y/o male who [facility] s/p DCD-OLT and drainage of righthydrothorax on 09/09/[address] [facility] on 09/29. Patient presenting to [facility] on 10/07 for worsening abdominal distension/ascites with possible PV thrombus, worsening Shortness of Breath and mildly slurred speech. Past medical history including alcohol-induced cirrhosis, c/b portal HTN, ascites, hepatic encephalopathy (HE), and large esophageal varices (EV), as well as hereditary hemorrhagic telangiectasia (HHT) and Tipton's esophagus (status post basal cell carcinoma excision in 2017) Patient presents with the following impairments: impaired endurance, weakness, balance deficits, SOB. These impairments limit patient's ability to transfer, get in/out of bed, ambulate, and ascend/descend stairs at prior level. 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 Pt lives with spouse in 2 RUST with 3 JESUS. 15 steps to second floor with full bath and bedroom. Pt's spouse purchased recliner for first floor that flattens into bed. Level of Function on Initial Examination: CGA-Meena for transfers, CGA to ambulate 129' with WCF using RW, unable to negotiate stairs. Patient will benefit from inpatient PT to address impairments in order to improve activity independence and facilitate progression toward prior participation level in discharge environment. Plan of care appropriate to be implemented by a director of physical security with supervision provided by an shawanda ansari therapist. Problem List: Decreased endurance, Decreased mobility, Impaired balance, Impaired elevation ability, Impaired transfer ability, Impaired bed mobility, Impaired ambulation ability, Decreased strength,Decreased safety awareness and Pain PT to Provide the Following Services: Aerobic/Endurance conditioning, Balance/proprioceptive training, Body Weight Support System, Fall prevention, Home Exercise Program (HEP) prescription, Therapeutic exercise, Therapeutic activities, Gait training, Elevation training, Education - patient/family, Body mechanics/ergonomics, Adaptive equipment/DME prescription and application, Electrical stimulation - Neuromuscular (NMES), Manual therapy, Neuromuscular re- education, Therapeutic modalities - coldtherapy and Therapeutic modalities - heat therapy Frequency of PT: 45-90 minutes 5 out of 7 days Duration (# of Days): 21 Duration Expiration Date: 11/21/2024 Therapist that Will Oversee Plan of Care: Jessica Kinsey, PT, DPT Pain Evaluation and Follow-up Response to Therapy Interventions: Improved mobility, Improved activity tolerance, Improved functional status (10/31/24 1200) Pain Reassessment: 7 (10/31/24 1200) Nursing notified of patient's pain assessment: Primary Nurse (10/31/24 1200) Therapy Minutes Time In : 1115 Time Out: 1200 Time calculation (min): 45 min JESSICA ANDERS, PT 10/31/2024 * Plan of Care - Jose L Shea RN - 10/31/2024 10:38 AM EDT Problem: Infection Goal: Absence of infection and prevention of transmission during hospitalization Outcome: Progressing Flowsheets (Taken 10/31/2024 1037) Absence of infection and prevention of transmission during hospitalization: Identify and instruct in appropriate isolation precautions for identified infection/condition, ensure compliance with posted infection prevention precautions Assess and monitor for signs and symptoms of infection and vital signs Problem: Knowledge Deficit Goal: Patient and/or family demonstrate readiness to learn Outcome: Progressing Flowsheets (Taken 10/31/2024 1037) Patient and/ or family demonstrates readiness to learn: Identify learning needs, preferences, skill level and resources available Address any barriers to learning Goal: Patient and/or family verbalizes understanding of education, and/or performs desired skill Outcome: Progressing Flowsheets (Taken 10/31/2024 1037) Patient and/or family verbalizes understanding of education, and/or performs desired skill: Use teach-back method to ensure patient/family understanding Provide patient and/or family educational material that is appropriate. Use pictures and other resources that are available as appropriate Problem: Discharge Planning Goal: Discharge to home or other facility with appropriate resources Outcome: Progressing Flowsheets (Taken 10/31/2024 1037) Discharge to home or other facility with appropriate resources: Refer to Case Management Departmentfor Coordinating discharge planning for if the patient needs post-hospital services based on physician order or complex needs related to functional status, cognitive ability or social support system Goal: 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 and enhance comfort in role Outcome: Progressing Flowsheets (Taken 10/31/2024 1037) Caregiver will develop a plan to decrease their burden and enhance comfort in role: Assist caregiver to assess the required needs of the patient and appraise the situation. Encourage family to have realistic perspective Encourage caregiver to identify strain/burden of caregiving Assist the patient and family to identify and utilize existing resources Problem: Delirium Goal: Prevent and Manage Delirium Outcome: Progressing Problem: Fall Safety: [place] Precautions Goal: Free from fall injury Outcome: Progressing Flowsheets (Taken 10/30/2024 2000 by Aniyah Howell RN) Free from fall injury: Perform fall risk assessment and identifiers in place (as applicable) Put call light within reach and teach how to call for assistance, respond to call light immediately Bed low, locked 2 side rails Lighting appropriate Use of bed/chair alarm Encourage patient to wear glasses and hearing aids and to use walking aids when ambulating, non skid socks Safe mobility and activity (this could include chair safety) Assess for environmental or other risks Fall/safety education for patient/family/SO Problem: Pain Goal: Patient's Pain/Discomfort is Manageable Outcome: Progressing Flowsheets (Taken 10/30/20241999 by Aniyah Howell, RN) Patient's Pain/Discomfort is Manageable: Assess pain level Include patient/family/caregiver in decisions related to pain management Provide Emotional/Spiritual Support Administer medications as ordered Assess pain using FLACC, PAINAD or Gill-Martinez Offer non-pharmocological pain management interventions Reassess patient's response and tolerance to discomfort Problem: Potential for Compromised Skin Integrity Goal: Skin integrity is maintained or improved Outcome: Progressing Flowsheets (Taken 10/30/20241999 by Aniyah Howell, LEO) Skin Integrity is Maintained or Improved: Assess skin and skin risk for breakdown Relieve pressure to bony prominences, avoid shearing Appropriate use of moisturizers for skin Turn Patient Keep skin clean and dry Monitor and teach appropriate hygiene practices * OT Initial Evaluation - Aniket Arce OT - 10/31/2024 9:00 AM EDT Occupational Therapy Evaluation Patient Name: Charles Blandon Patient Birthdate: 1955 Pain Assessment Pain Context: Therapy Assessment Prior to Treatment (10/31/24904) Pain Assessment: NRS 0-10 (10/31/24904) Pain Score: 8 - Severe Pain (10/31/24904) Pain Severity - NRS (Calculated): Severe (10/31/24904) Pain Location: Abdomen (10/31/24904) Pain Orientation: Left (10/31/24904) Pre-therapy pain intervention required: Patient expressed pain is tolerable/able to proceed, Nurse notified, Nursing medicated patient - see MAR (10/31/24904) Pain Interventions Education Provided: Patient (10/31/24904) Non-Pharmacologic Pain Interventions: Distractions, Rest (10/31/24904) Emotional/Spiritual Pain Interventions: Empathetic Discussion (10/31/24904) Vital Signs Vitals Context: Resting (10/31/24 1003) Pulse: 94 (10/31/24 1003) Heart Rate Source: Monitor (10/31/241002) BP: 130/82 (10/31/24 1003) MAP (mmHg): 98 (10/31/24 1003) BP Location: Left arm (10/31/24 100) BP Method: Automatic (10/31/24 1003) Patient Position: Sitting (10/31/24 1003) Oxygen Context: Sitting (10/31/243) SpO2: 96 % (10/31/24 1003) O2 Device: None (Room air) (10/31/241002) Home Living Type of Home: House (10/31/24915) # steps into the home: 3 (c unilateral handrail) (10/31/24915) Home Layout: Two level (10/31/24915) Bathroom Shower/Tub: Tub/shower unit (10/31/24915) Bathroom Equipment: Grab bars in shower (10/31/24915) Bathroom Accessibility: Full bath second floor, Half bath first floor (10/31/24915) Home Evaluation Required?: To be assessed (10/31/24915) Home Living Comments: Pt lives c spouse in 2STH c 3 JESUS c unilateral rail. Pt's bedroom is on the 2nd floor c 15 steps up with a full bathroom that features a tub/shower combo, standard toilet and grab bars. Pt and spouse reports that they bought a recliner chair that will be set up on ground floor, pt can use half bathroom on 1st floor. Home also features a basement that pt does not access. (10/31/24915) Prior Function Level of [place]: Independent with ambulation (10/31/24915) Lives With: Spouse (10/31/24915) Receives Help From: Family (10/31/24915) Vocational: Retired (10/31/24915) Patient Subjective Report - Pt was met lying in bed c present. 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 Eating - CARE Score: 5 Oral Hygiene Assistance Needed: Set-up / clean-up Comment: Pt brushed teeth while seated in w/c c set up. Oral Hygiene - CARE Score: 5 Toileting Hygiene Physical Assistance Level: Total assistance Comment: Pt req Total A for hygiene post bed-level BM. Toileting Hygiene - CARE Score: 1 Shower/Bathe Self Physical Assistance Level: 76% or more Comment: Pt comp seated sponge bath on toilet, pt req A reaching someparts of chest, buttocks, feetand lower legs. Pt also req rest breaks for fatigue. Shower/Bathe Self - CARE Score: 2 Upper Body Dressing Physical Assistance Level: 26%-50% Comment: Pt req A threading head and pulling shirt down. Upper Body Dressing - CARE Score: 3 Lower Body Dressing Physical Assistance Level: Total assistance Comment: Pt req Total A to don pants, he initiated LB dressing seated on toilet. Pt would perform aSTS c GBA for pants and underwear to be pulled up and secured to waist. Lower Body Dressing - CARE Score: 1 Putting On/Taking Off Footwear Physical Assistance Level: 76% or more Comment: Pt donned shoes while seated on toilet, pt req Max A to comp, was able to finish task oncepositioned fpc on feet. Putting On/Taking Off Footwear - CARE Score: 2 Roll Left and Right Physical Assistance Level: 51%-75% Comment: Pt rolled L <> R c 51-7% A. Roll Left and Right - CARE Score: 2 Sit to Lying Physical Assistance Level: 51%-75% Comment: Pt would req 51-75% A to comp sit to lying for lifting legs and turning trunk. Sit to Lying - CARE Score: 2 Lying to Sitting on Side of Bed Physical Assistance Level: 51%-75% Comment: Pt would req 51-75% to comp lying to short sitting EOB, c A needed for lifting and turningtrunk, as well as turning legs. Lying to Sitting on Side of Bed - CARE Score: 2 Sit to Stand Physical Assistance Level: 25% or less Comment: Pt comp STS from w/c c RW c Min A. Sit to Stand - CARE Score: 3 Chair/[id number] Transfer Physical Assistance Level: 25% or less Comment: Pt comp SPT w/c <> bed transfer c RW. A req for initiating STS and pivoting. Chair/[id number] Transfer - CARE Score: 3 Toilet Transfer Physical Assistance Level: 25% or less Comment: Pt comp SPT w/c <> toilet transfer c GBA. A req for initiating STS and pivoting. Toilet Transfer - CARE Score: 3 PERFORMANCE SKILLS ASSESSMENT: Performance Skills Assessment: Behavioral/Affective Observations: Goal directed Cognitive Skills: Oriented to personal circumstance, Oriented to place, Oriented to time, Able to follow 1 step commands and Able to follow 2 step commands Functional Endurance: Functional Endurance: Impaired Standing Tolerance: Standing Assist: Minimal Assistance MUSCULOSKELETAL STATUS: Tremors: Yes Tremor Location: Hands Tremor Characteristics: Posture (against gravity) Hand Dominance: Right Right Finger to Nose Coordination-Eyes Open: Intact Left Finger to Nose Coordination- Eyes Open: Intact Right Finger to Nose Coordination- Eyes Closed: Intact Left Finger to Nose Coordination-Eyes Closed: Intact Diadochokinesia: Movements slow and deliberate Coordination: Functional Right Grasp: WFL Left Grasp: WFL Right Lateral Strength: WFL Left Lateral Strength: WFL Right Tip to Tip Strength: WFL Left Tip to Tip Strength: WFL RUE Assessment-ROM: Within Functional Limits RUE Assessment-MMT: Within Functional Limits LUE Assessment-ROM: Within Functional Limits LUE Assessment-MMT: Within Funcitonal Limits Right Upper Extremity: WNL Left Upper Extremity: WNL Upper Extremity Sensation: Light Touch: Right Upper Extremity Light Touch: Intact Left Upper Extremity Light Touch: Intact Upper Extremity Sensation: Deep Pressure: Right Upper Extremity Deep Pressure: Intact Left Upper Extremity Deep Pressure: Intact Upper Extremity Localization: Right Upper Extremity Localization: Intact Left Upper Extremity Localization: Intact Upper Extremity Hot/Cold Discrimination: Right Upper Extremity Hot Cold Discrimination: Intact Left Upper Extremity Hot/Cold Discrimination: Intact Upper Extremity Stereognosis: Right Upper Extremity Stereognosis: Intact Left Upper Extremity Stereognosis: Intact Visual/Perceptual Skills: Visual/Perceptual Skills: Vision corrected with lenses Perform In-Depth Visual Assessment?: No Wheelchair Type: Standard Wheelchair Size: 18 Wheelchair Cushion Type: Foam Safety Devices: Rear Anti-Tippers and Seatbelt Safety Devices Narrative: Pt demonstrates the ability to fasten and release safety device. Patient was instructed in weight shifting techniques while sitting in wheelchair.: Yes Weight Shifting Narrative: Pt demonstrates the ability to use weight shifting techniques while seated in w/c. Skin was assessed under all device(s) for pressure point(s) and any skin changes.: Yes Skin Issues Narrative: Skin Integrity Check: Assessed sacral/buttocks region & heels during ADLself care task c wound RN present. No redness or sores observed. Patient's and/or Caregiver's Goals: Communication Goals (in their own words): Pt reported getting home. Pt's spouse reported walkingsteps, being able to get in/out of house and truck Goals Generated By:: Pt and caregiver generated response. CARE Score David: 6: Independent. [place] provides no assistance with tasks. A device may or may not have been used. 5: Set-up or clean-up assistance. [place] sets up or cleans up, but does not assist with tasks. [place] may have assisted prior to or following the activity. 4: Supervision or touching assistance. [place] provides verbal cues or touching/steadying or contactguard assistance. Assistance may be provided throughout the activity or intermittently. 3: Partial/moderate assistance. [place] does less than half the effort. [place] lifts, holds, or supports trunk or limbs, but provides less than half the effort. 2: Substantial/maximal assistance. [place] does more than half the effort. [place] lifts or holds trunk or limbs, and provides more than half the effort. 1: Dependent. [place] does all of the effort, or the assistance of two or more helpers is required for the patient to complete the activity. -: Inconsistent or incomplete documentation Activity not attempted values: 7: Patient refused 9: Not applicable - Not attempted and the patient did not perform this activity prior to the current illness, exacerbation, or injury. 10: Not attempted due to environmental limitations (e.g., lack of equipment, weather constraints) 88: Not attempted due to medical condition or safety concerns Retirement Goals: Status on Admission Goal Eating - CARE Score: 5 (10/31/24 1254) Eating LTG: Independent (10/31/24 1029) Oral Hygiene - CARE Score: 5 (10/31/24 1254) Oral Hygiene LTG: Independent (10/31/24 1029) Toileting Hygiene - CARE Score: 1 (10/31/24 125) Toileting Hygiene LTG: Independent (10/31/24 1029) Shower/Bathe Self - CARE Score: 2 (10/31/24 125) Shower/Bathe Self LTG: Supervision or touching assistance (10/31/24 102) Upper Body Dressing - CARE Score: 3 (10/31/24 1254) Upper Body Dressing LTG: Independent (10/31/24 102) Lower Body Dressing - CARE Score: 1 (10/31/24 125) Lower Body Dressing LTG: Independent (10/31/24 102) Putting On/Taking Off Footwear - CARE Score: 2 (10/31/24 125) Putting On/Taking Off Footwear LTG: Independent (10/31/24 102) Roll Left and Right - CARE Score: 2 (10/31/24 125) Roll Left and Right LTG: Independent (10/31/24 102) Sit to Lying - CARE Score: 2 (10/31/24 125) Sit to Lying LTG: Independent (10/31/24 102) Lying to Sitting on Side of Bed - CARE Score: 2 (10/31/24 125) Lying to Sitting on Side of Bed LTG: Independent (10/31/24 102) Sit to Stand - CARE Score: 3 (10/31/24 125) Sit to Stand LTG: Independent (10/31/24 1029) Chair/Gng-ka-Joltx Transfer - CARE Score: 3 (10/31/24 1254) Chair/Hsg-vb-Nwiyi Transfer LTG: Independent (10/31/24 102) Toilet Transfer - CARE Score: 3 (10/31/241253) Toilet Transfer LTG: Independent (10/31/24 102) OT Short Term Goal 1: Focus: Chair/Bed Transfer Level of Assistance to Meet Short Term Goal: Incidental touching Expected Achievement Date: 11/04/2024 Goal Status: Established OT Short Term Goal 2: Focus: Lower Body Dressing Level of Assistance to Meet Short Term Goal: Physical assistance 50%-74% Expected Achievement Date: 11/04/2024 Goal Status: Established OT Short Term Goal 3: Focus: Shower/Bathe Level of Assistance to Meet Short Term Goal: Physical assistance 25%-49% Expected Achievement Date: 11/04/2024 Goal Status: Established Evaluation Summary:: Per chart review, patient is a 69 year old male re-admit with an etiologic diagnosis of Critical Illness Myopathy. Pt has a PMHx significant for alcohol-induced cirrhosis, c/b portal HTN, ascites, hepatic encephalopathy (HE), and large esophageal varices (EV), as well as hereditary hemorrhagic telangiectasia (HHT) and Tipton's esophagus (status post basal cell carcinoma excision in 2017), was recently diagnosed with hepatocellular carcinoma (HCC). Patient presents to [facility] with decreased balance, endurance, overall strength, and independencewith I/ADLs and transfers. Patient will benefit from OT services in an intensive skilled setting toaddress the above deficits PLOF: Pt reports independence c all ADLs prior to last hospitalizations. Pt lives c spouse in 2STH c 3 JESUS c unilateral rail. Pt's bedroom is on the 2nd floor c 15 steps up with a full bathroom that features a tub/shower combo, standard toilet and grab bars. Pt and spouse reports that they bought arecliner chair that will be set up on ground floor, pt can use half bathroom on 1st floor. Home also features a basement that pt does not access. CLOF: Feeding: Set Up Oral Hygiene: Set Up Toileting: Total A Bathing: Max A UB Dressing: Mod A LB Dressing: Total A Footwear: Max A Bed Mobility: Mod A Transfers: Min A Problem List:: Activity Tolerance, Functional skill, Mobility, Decreased functional endurance, Decreased functional status in ADL's, Impaired balance, Decreased transfer status, Decreased upper extremity strength, Decreased upper body strength and Decreased fine motor coordination OT to Provide the Following Services: ADL and Transfer Training, UE Therex, Manual Therapy Techniques as Appropriate, Balance Training, Energy Conservation and Activity Modifications, Assistive Technology Education and Training, Wheelchair Safety and Mobility Training, Home Evaluation as needed, Pat ient/Family Education and Training, Coordination Training, Functional Endurance Training, Home Safety and Modification Education, Adaptive Equipment/DME Education, Modalities to prepare for functional training, OT General Conditioning Exercises & Endurance Training, OT Progressive Resistive Exercise and OT Home Exercise Program Frequency:: 45-90 minutes 5 out of 7 days Duration (# of Days): 21 Duration Expiration Date: 11/21/2024 Therapist that Will Oversee Plan of Care:: QUIN Nath Pain Evaluation and Follow-up Pain Reassessment: 7 (RN medicated pt during eval) (10/31/24 1028) Nursing notified of patient's pain assessment: Primary Nurse (10/31/24 1028) Therapy Minutes Time In : 0900 Time Out: 1030 Time calculation (min): 90 min Pt was left seated in w/c eating cereal c present and all needs met. ANIKET ARCE OT 10/31/2024 * SURVEY RODMAN Swallowing and Communication Evaluation - Virginia Dahl [facility]-SURVEY RODMAN - 10/31/2024 8:15 AM EDT Speech Language Pathologist Communication & Swallow Evaluation Patient Name: Charles Blandon Patient Birthdate: 1955 Patient Subjective Report - I don't know why I am doing this again. Pt requiring encouragement toparticipate in ST evoh. Pain Assessment Pain Context: Therapy Assessment Prior to Treatment (10/31/24818) Pain Assessment: NRS 0-10 (10/31/24818) Pain Score: 7 - Severe Pain (10/31/24818) Pain Severity - NRS (Calculated): Severe (10/31/24818) Pain Descriptors: Aching (10/31/24818) Pain Onset: Ongoing (10/31/24818) Pain Frequency: Constant/continuous (10/31/24818) Pre-therapy pain intervention required: Patient expressed pain is tolerable/able to proceed, Nurse notified (10/31/24818) Pain Interventions Non-Pharmacologic Pain Interventions: Distractions (10/31/24818) Prior Function Level of [place]: Independent with ambulation (10/31/24915) Lives With: Spouse (10/31/24915) Receives Help From: Family (10/31/24915) Vocational: Retired (10/31/2416) IP REHAB SURVEY RODMAN GEN ASSESSMENT: Pertinent history: ETOH abuse and Other (comment) (Critical illness myopathy) Auditory and visual status/observations: Wears glasses for reading, Reduced hearing acuity and Repetitions needed Diet at current time: IDDSI 7 - Regular / Regular, IDDSI 0 - Thin Liquids / All Liquids and Pills Can Be Taken with Recommended Liquid Consistency Oral peripheral speech mechanism: WFL for purpose of deglutition Dentition and oral health status: Able to manage secretions, Adequate dental condition and Adequateoral health Respiratory Status: Room air Comprehension Deficits: Other (Comment) (Comprehension WFL) Expression Deficits: Other (comment) (Expression WFL) Cognitive Deficits: Other (comment) (Cognition WFL) Patient complaints as related to swallowing: Denies swallowing difficulty Cognitive status: Able to follow directions/strategies, Awake and alert and WFL Motor control: Fed self during exam Protective reflexes and vocal quality: WFL Consistencies tested: IDDSI 7 - Regular / Regular and IDDSI 0 - Thin Liquids / All Liquids (via straw) Oral phase impairments: Other (comment) (Oral phase WFL) Pharyngeal phase impairments: Other (comment) (No overt s/s pharyngeal phase deficits) Clinical impressions: A non-instrumental assessment cannot definitely rule out aspiration, Swallow appears WFL for age and No overt signs/symptoms of aspiration across tested consistencies Special Test and Outcome Measures: [place] Cognitive Assessment (MOCA) (v8.1, ) Goals (in their own words): 'Go home. 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 No ST services during hospitalization. Pt admitted on regular diet/ thin liquids. During previous ARF admission in September,, pt scored 24/30 on MoCA. Discharged with [facility]. Poor participation during ST tx noted. Per pt report, pt lives at home with spouse. Pt is retired. 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 Pt's spouse does majority of driving and finance management. Pt was assisting with medication management. (+) weekly pill organizer. Pt enjoys golf. Pt denies any s/s Dysphagia, including odynophagia or globus sensation. Pt denies any acute cognitive-communication changes. Cognitive-communication eval completed this date. Pt presents with WFL cognitive-linguistic function. Pt scored 26/30 on MoCA. Score breakdown: visuospatial/executive fx (5/5), naming (3/3), attention (6/6), language (3/3), delayed recall (2/5) and abstraction (2/2), orientation (5/6). Immediate recall (5/5) items. Memory Index Score: 10/15. Pt responsive to category cue x1 and multiple choice cue x2. Generative Namin F words/ 1 min. Per informal assessment, pt demonstrating adequate safety awareness and problem solving. Pt's auditory comprehension WFL. Pt able to follow simple and complex. Multi-step commands and answer complex questions without difficulty. Pt 100% intelligible without any concern for motor-speech or voice deficits. No further ST services rec'd at this time. Please re-consult PRN. CBSE completed this date. Pt seated upright in bed. Pt fed self Assessed tolerance of regular solidand thin liquids via straw. Pt presents with WFL oropharyngeal swallow function. No overt s/s aspiration noted. Pt demonstrating timely, functional mastication. No significant oral residues followingswallow observed. Pt observed taking meds whole with thin liquids via straw with no difficulty. Oral mech WFL. Rec'd continue regular and thin liquids. No further ST services rec'd at this time for Dysphagia. Please re-consult PRN. Recommended diet: IDDSI 7 - Regular / Regular, IDDSI 0 - Thin Liquids / All Liquids and Pills Can Be Taken with Recommended Liquid Consistency Compensatory swallowing techniques recommended: Alternate solids/liquids-liquid wash, Small sips, Small bites, Eat slowly-control rate, Eat/drink only when awake/alert and Seated upright with all PO intake Level of supervision at meals recommended: Monitor at meals and assist as needed Therapy Recommendations: Speech therapy services not recommended at this time - Re-consult PRN Treatment plan discussed with: Other (comment) (n/a) Patient/Caregiver Training: Other (comment) (n/a) Problem List:: Other (comment) (n/a) SURVEY RODMAN to Provide the Following Dysphagia Services:: Other (comment) (n/a) SURVEY RODMAN to Provide the Following Cognitive, Language, Speech Services:: Other (comment) Frequency:: Patient not appropriate for speech services- will not see for further treatments at this time DURATION:: n/a. Expiration Date: n/a. Therapist that Will Oversee Plan of Care: N/a Is patient a candidate for Clinical Free Water Protocol? N/A - patient is on IDDSI 0 (thin liquids/all liquids) - has no liquid consistency restrictions NA: PO Diet and IDDSI 0 (thin liquids/ all liquids) Pain Evaluation and Follow-up Pain Reassessment: 7 (10/31/24855) Nursing notified of patient's pain assessment: Primary Nurse (10/31/24 0856) Therapy Minutes Comm Evaluation (ST) Time In : 0815 Time Out: 0845 Time calculation (min): 30 min CBSE Evaluation (ST) Time In : 0845 Time Out: 0900 Time calculation (min): 15 min VIRGINIA DAHL CCC-SURVEY RODMAN 10/31/2024 * Plan of Care - Aniyah Howell RN - 10/30/2024 8:00 PM EDT Problem: Fall Safety: [place] Precautions Goal: Free from fall injury 10/31/2024313 by Aniyah Howell RN Outcome: Progressing Flowsheets (Taken 10/30/20241999) Free from fall injury: Perform fall risk assessment and identifiers in place (as applicable) Put call light within reach and teach how to call for assistance, respond to call light immediately Bed low, locked 2 side rails Lighting appropriate Use of bed/chair alarm Encourage patient to wear glasses and hearing aids and to use walking aids when ambulating, non skid socks Safe mobility and activity (this could include chair safety) Assess for environmental or other risks Fall/safety education for patient/family/SO 10/31/2024 0312 by Aniyah Howell RN Outcome: Progressing Flowsheets (Taken 10/30/20241999) Free from fall injury: Perform fall risk assessment and identifiers in place (as applicable) Put call light within reach and teach how to call for assistance, respond to call light immediately Bed low, locked 2 side rails Lighting appropriate Use of bed/chair alarm Encourage patient to wear glasses and hearing aids and to use walking aids when ambulating, non skid socks Safe mobility and activity (this could include chair safety) Assess for environmental or other risks Fall/safety education for patient/family/SO Problem: Pain Goal: Patient's Pain/Discomfort is Manageable Outcome: Progressing Flowsheets (Taken 10/30/20241999) Patient's Pain/Discomfort is Manageable: Assess pain level Include patient/family/caregiver in decisions related to pain management Provide Emotional/Spiritual Support Administer medications as ordered Assess pain using FLACC, PAINAD or Gill-Martinez Offer non-pharmocological pain management interventions Reassess patient's response and tolerance to discomfort Problem: Potential for Compromised Skin Integrity Goal: Skin integrity is maintained or improved Outcome: Progressing Flowsheets (Taken 10/30/20241999) Skin Integrity is Maintained or Improved: Assess skin and skin risk for breakdown Relieve pressure to bony prominences, avoid shearing Appropriate use of moisturizers for skin Turn Patient Keep skin clean and dry Monitor and teach appropriate hygiene practices documented in this encounter Plan of Treatment Pending Results Name Type Priority Associated Diagnoses Date /Time Albumin Lab Routine 11/08/2024 5:2 1 AM EDT CBC AUTO DIFFERENTIAL Lab Routine 04/2024 5:30 AM EDT Scheduled Orders Name Type Priority Associated Diagnoses Orde r Schedule Albumin Lab Routine Once for 1 Occ urrences starting 11/08/2024 until 11/08/2024 Scheduled Referrals Name Type Priority Associated Diagnoses Orde r Schedule Consult to Home Care Outpatient Referral Routine Critical illness myopathy Ordered: 11/14/2024 documented as of this encounter Procedures Procedure Name Priority Date/Time Associated Diagnosis Comments CBC WITH AUTO DIFFERENTIAL Routine 11/15/2024 5:30 AM EDT PHOSPHORUS Routine 11/15/2024 5:30 AM EDT MAGNESIUM Routine 11/15/2024 5:30 AM EDT COMPREHENSIVE METABOLIC PANEL Routine 11/15/2024 5:30 AM EDT N-TERMINAL PROBNP Routine 11/14/2024 3:3 0 AM EDT CBC WITH AUTO DIFFERENTIAL Routine 11/14/2024 3:30 AM EDT TACROLIMUS LEVEL Routine 11/14/2024 3:30 AM EDT C-REACTIVE PROTEIN Routine 11/14/2024 3: 30 AM EDT PHOSPHORUS Routine 11/14/2024 3:30 AM EDT MAGNESIUM Routine 11/14/2024 3:30 AM EDT GAMMA GT Routine 11/14/2024 3:30 AM EDT COMPREHENSIVE METABOLIC PANEL Routine 11/14/2024 3:30 AM EDT N-TERMINAL PROBNP Routine 11/11/2024 5:0 6 AM EDT CBC WITH AUTO DIFFERENTIAL Routine 11/11/2024 5:06 AM EDT TACROLIMUS LEVEL Routine 11/11/2024 5:06 AM EDT CMV DNA, QUANTITATIVE, PCR Routine 11/11/2024 5:06 AM EDT C-REACTIVE PROTEIN Routine 11/11/2024 5: 06 AM EDT PHOSPHORUS Routine 11/11/2024 5:06 AM EDT MAGNESIUM Routine 11/11/2024 5:06 AM EDT GAMMA GT Routine 11/11/2024 5:06 AM EDT COMPREHENSIVE METABOLIC PANEL Routine 11/11/2024 5:06 AM EDT RENAL FUNCTION PANEL Routine 11/09/2024 6:05 AM EDT MAGNESIUM Routine 11/09/2024 6:05 AM EDT URINALYSIS W/REFLEX TO MICROSCOPIC Routine 11/08/2024 6:23 PM EDT US RENAL COMPLETE STAT 11/08/2024 1:0 0 PM EDT PHOSPHORUS Routine 11/08/2024 5:21 AM EDT MAGNESIUM Routine 11/08/2024 5:21 AM EDT BASIC METABOLIC PANEL Routine 11/08/2024 5:21 AM EDT XR ABDOMEN 1 VW STAT 11/07/2024 2:24 PM EDT N-TERMINAL PROBNP Routine 11/07/2024 10: 56 AM EDT CBC WITH AUTO DIFFERENTIAL Routine 11/07/2024 10:56 AM EDT TACROLIMUS LEVEL Routine 11/07/2024 10:5 6 AM EDT C-REACTIVE PROTEIN Routine 11/07/2024 10 :56 AM EDT PHOSPHORUS Routine 11/07/2024 10:56 AM EDT MAGNESIUM Routine 11/07/2024 10:56 AM EDT GAMMA GT Routine 11/07/2024 10:56 AM EDT COMPREHENSIVE METABOLIC PANEL Routine 11/07/2024 10:56 AM EDT US ABDOMEN LTD (E.G, SPLEEN, RUG) STAT 11/06/2024 3:45 PM EDT XR LUMBAR SPINE 1 VWS STAT 11/04/2024 3:30 PM EDT N-TERMINAL PROBNP Routine 11/04/2024 5:1 0 AM EDT CBC WITH AUTO DIFFERENTIAL Routine 11/04/2024 5:10 AM EDT TACROLIMUS LEVEL Routine 11/04/2024 5:10 AM EDT CMV DNA, QUANTITATIVE, PCR Routine 11/04/2024 5:10 AM EDT C-REACTIVE PROTEIN Routine 11/04/2024 5: 10 AM EDT PHOSPHORUS Routine 11/04/2024 5:10 AM EDT MAGNESIUM Routine 11/04/2024 5:10 AM EDT GAMMA GT Routine 11/04/2024 5:10 AM EDT CPK Routine 11/04/2024 5:10 AM EDT COMPREHENSIVE METABOLIC PANEL Routine 11/04/2024 5:10 AM EDT US ABDOMEN LTD (E.G, SPLEEN, RUG) Routine 11/03/2024 1:28 PM EDT RENAL FUNCTION PANEL Routine 11/03/2024 5:05 AM EDT MAGNESIUM Routine 11/03/2024 5:05 AM EDT RENAL FUNCTION PANEL Routine 11/02/2024 6:40 AM EDT CBC WITH AUTO DIFFERENTIAL Routine 11/02/2024 6:40 AM EDT MAGNESIUM Routine 11/02/2024 6:40 AM EDT XR CHEST 1 VW Routine 11/01/2024 2:39 PM EDT RENAL FUNCTION PANEL Routine 11/01/2024 5:01 AM EDT N-TERMINAL PROBNP Routine 11/01/2024 5:0 1 AM EDT CBC WITH AUTO DIFFERENTIAL Routine 11/01/2024 5:01 AM EDT IRON AND TIBC Routine 11/01/2024 5:01 AM EDT MAGNESIUM Routine 11/01/2024 5:01 AM EDT FOLATE Routine 11/01/2024 5:01 AM EDT FERRITIN Routine 11/01/2024 5:01 AM EDT VITAMIN B12 Routine 11/01/2024 5:01 AM EDT N-TERMINAL PROBNP Routine 10/31/2024 4:5 2 AM EDT CBC WITH AUTO DIFFERENTIAL Routine 10/31/2024 4:52 AM EDT TACROLIMUS LEVEL Routine 10/31/2024 4:52 AM EDT C-REACTIVE PROTEIN Routine 10/31/2024 4: 52 AM EDT PHOSPHORUS Routine 10/31/2024 4:52 AM EDT MAGNESIUM Routine 10/31/2024 4:52 AM EDT GAMMA GT Routine 10/31/2024 4:52 AM EDT COMPREHENSIVE METABOLIC PANEL Routine 10/31/2024 4:52 AM EDT documented in this encounter Results * PHOSPHORUS (11/15/2024 5:30 AM EDT) Pathologist [facility] Phosphorus 4.7 2.7 - 4.8 mg/dL 11/15/2024 10:09 AM EDT [facility] Blood 11/15/2024 5:30 AM EDT 11/15/2024 9:05 AM EDT us Barry Palmer [facility] LAB BLOOD ORDERABLES Final Re sult Performing Organization Address [facility] de Phone Number [facility] [address] [place] [phone] [facility] [address] [place] [phone] * MAGNESIUM (11/15/2024 5:30 AM EDT) Pathologist [facility] Magnesium 2.1 1.7 - 2.3 mg/dL 11/15/2024 10:09 AM EDT [facility] Blood (Blood, Venous) 11/15/2024 5:30 AM EDT 11/15/2024 9:05 AM EDT Barry Palmer [facility] LAB BLOOD ORDERABLES Final Re sult Performing Organization Address [facility] de Phone Number [facility] [address] [place] [address] [facility] [address] [place] [phone] * (ABNORMAL) COMPREHENSIVE METABOLIC PANEL (11/15/2024 5:30 AM EDT) Pathologist [facility] Total Protein 5.5(L) 6.3 - 8.0 g/dL 11/15/2024 10:09 AM EDT [facility] Albumin 2.9(L) 3.9 - 4.9 g/dL 11/15/2024 10:09 AM EDT [facility] Calcium 8.6 8.5 - 10.2 mg/dL 11/15/2024 10:09 AM [facility] Bilirubin, Total 0.2 0.2 - 1.3 mg/dL 11/15/2024 10:09 AM [facility] Alkaline phosphatase 143(H) 38 - 113 U/L 11/15/2024 10:09 AM [facility] AST 20 14 - 40 U/L 11/15/2024 10:09 AM [facility] ALT (SGPT) 11 10 - 54 U/L 11/15/2024 10:09 AM [facility] Glucose 88 74 - 99 mg/dL 11/15/2024 10:09 AM [facility] Comment: The [place] [employer] (ADA) provides guidance for cutoff values for fasting glucose and random glucose. The ADA defines fasting as no caloric intake for at least 8 hours. Fasting plasma glucose results between 100 to 125 mg/dL indicate increased risk for diabetes (prediabetes). Fasting plasma glucose results greater than or equal to 126 mg/dL meet the criteria for diagnosis of diabetes. In the absence of unequivocal hyperglycemia, results should be confirmed by repeat testing. In a patient with classic symptoms of hyperglycemia or hyperglycemic crisis, random plasma glucose results greater than or equal to 200 mg/dL meet the criteria for diagnosis of diabetes. Reference: Standards of Medical Care in Diabetes 2016, [place] [employer]. Diabetes Care. 2016.39(Suppl 1). BUN 17 9 - 24 mg/dL 11/15/2024 10:09 AM [facility] Creatinine, Ser 1.52(H) 0.73 - 1.22 mg/dL 11/15/2024 10:09 AM [facility] Sodium 135(L) 136 - 144 mmol/L 11/15/2024 10:09 AM [facility] Potassium 5.1 3.7 - 5.1 mmol/L 11/15/2024 10:09 AM [facility] Chloride 101 98 - 107 mmol/L 11/15/2024 10:09 AM [facility] CO2 22 22 - 30 mmol/L 11/15/2024 10:09 AM [facility] Anion Gap 12 8 - 15 mmol/L 11/15/2024 10:09 AM [facility] Estimated glomerular filtration rate 49(L) >=60 mL/min/1. 73m 11/15/2024 10:09 AM EDT [facility] Comment: Estimated Glomerular Filtration Rate (eGFR) is calculated using the 2020 CKD-EPI creatinine equation. This equation utilizes serum creatinine, sex, and age as parameters. The creatinine assay has traceable calibration to isotope dilution- mass spectrometry. Refer to KDIGO guidelines for clinical interpretation. In patients with unstable renal function, e.g. those with acute kidney injury, the eGFR may not accurately reflect actual GFR. Blood (Blood, Venous) 11/15/2024 5:30 AM EDT 11/15/2024 9:05 AM EDT Suze Jenkins MD LAB BLOOD ORDERABLES Final Resu lt Performing Organization Address [facility] de Phone Number [address] [facility] [address] [place] [phone] * MAGNESIUM (11/14/2024 3:30 AM EDT) Magnesium 2.1 1.7 - 2.3 mg/dL 11/14/2024 11:32 AM EDT [facility] LABORATORY Blood (Blood, Venous) 11/14/2024 3:30 AM EDT 11/14/2024 9:09 AM EDT David Cruz DO LAB BLOOD ORDERABLES Final R esult Performing Organization Address [facility] Co de Phone Number [facility] [address] [place] [address] [facility] [address] [place] [phone] * GAMMA GT (11/14/2024 3:30 AM EDT) GGT 70 10 - 70 U/L 11/14/2024 5:57 PM EDT [facility] Blood (Blood, Venous) 11/14/2024 3:30 AM EDT 11/14/2024 1:11 PM EDT [facility] LAB BLOOD ORDERABLES Final R esult Performing Organization Address City/[facility]/ZIP Co de Phone Number [facility] [address] [place] [address] [facility] [address] [facility] [address] [place] [address] * (ABNORMAL) C-REACTIVE PROTEIN (11/14/2024 3:30 AM EDT) [facility] CRP 20.7(H) <0.9 mg/dL 11/14/2024 11:32 AM EDT [facility] Blood (Blood, Venous) 11/14/2024 3:30 AM EDT 11/14/2024 9:09 AM EDT [facility] LAB BLOOD ORDERABLES [facility] Performing Organization Address [facility] Co de Phone Number [facility] [address] [place] [address] [facility] [address] [place] [address] * (ABNORMAL) COMPREHENSIVE METABOLIC PANEL (11/14/2024 3:30 AM EDT) [facility] Total Protein 5.7(L) 6.3 - 8.0 g/dL 11/14/2024 11:32 AM EDT [facility] Albumin 2.8(L) 3.9 - 4.9 g/dL 11/14/2024 11:32 AM EDT [facility] Calcium 8.6 8.5 - 10.2 mg/dL 11/14/2024 11:32 AM EDT [facility] Bilirubin, Total 0.2 0.2 - 1.3 mg/dL 11/14/2024 11:32 AM EDT [facility] Alkaline phosphatase 136(H) 38 - 113 U/L 11/14/2024 11:32 AM EDT [facility] AST 25 14 - 40 U/L 11/14/2024 11:32 AM EDT [facility] ALT (SGPT) 12 10 - 54 U/L 11/14/2024 11:32 AM EDT [facility] Glucose 113(H) 74 - 99 mg/dL 11/14/2024 11:32 AM [facility] Comment: The [place] [employer] (ADA) provides guidance for cutoff values for fasting glucose and random glucose. The ADA defines fasting as no caloric intake for at least 8 hours. Fasting plasma glucose results between 100 to 125 mg/dL indicate increased risk for diabetes (prediabetes). Fasting plasma glucose results greater than or equal to 126 mg/dL meet the criteria for diagnosis of diabetes. In the absence of unequivocal hyperglycemia, results should be confirmed by repeat testing. In a patient with classic symptoms of hyperglycemia or hyperglycemic crisis, random plasma glucose results greater than or equal to 200 mg/dL meet the criteria for diagnosis of diabetes. Reference: Standards of Medical Care in Diabetes 2016, [place] [employer]. Diabetes Care. 2016.39(Suppl 1). BUN 20 9 - 24 mg/dL 11/14/2024 11:32 AM [facility] Creatinine, Ser 1.40(H) 0.73 - 1.22 mg/dL 11/14/2024 11:32 AM [facility] Sodium 134(L) 136 - 144 mmol/L 11/14/2024 11:32 AM [facility] Potassium 5.9(H) 3.7 - 5.1 mmol/L 11/14/2024 11:32 AM [facility] Chloride 102 98 - 107 mmol/L 11/14/2024 11:32 AM [facility] CO2 22 22 - 30 mmol/L 11/14/2024 11:32 AM [facility] Anion Gap 10 8 - 15 mmol/L 11/14/2024 11:32 AM [facility] Estimated glomerular filtration rate 54(L) >=60 mL/min/1. 73m 11/14/2024 11:32 AM [facility] Comment: Estimated Glomerular Filtration Rate (eGFR) is calculated using the 2020 CKD-EPI creatinine equation. This equation utilizes serum creatinine, sex, and age as parameters. The creatinine assay has traceable calibration to isotope dilution- mass spectrometry. Refer to KDIGO guidelines for clinical interpretation. In patients with unstable renal function, e.g. those with acute kidney injury, the eGFR may not accurately reflect actual GFR. Blood (Blood, Venous) 11/14/2024 3:30 AM EDT 11/14/2024 9:09 AM EDT us David Cruz DO LAB BLOOD ORDERABLES Final R esult [facility] [address] [place] [address] [facility] [address] [place] [address] * (ABNORMAL) CBC AUTO DIFFERENTIAL (11/14/2024 3:30 AM EDT) WBC 2.59(L) 3.70 - 11.00 k/uL 11/14/2024 11:54 AM EDT [facility] RBC 2.40(L) 4.20 - 6.00 m/uL 11/14/2024 11:54 AM EDT [facility] Hemoglobin 7.2(L) 13.0 - 17.0 g/dL 11/14/2024 11:54 AM EDT [facility] Hematocrit 23.9(L) 39.0 - 51.0 % 11/14/2024 11:[facility] MCV 99.6 80.0 - 100.0 fL 11/14/2024 11:54 AM EDT [facility] MCH 30.0 26.0 - 34.0 pg 11/14/2024 11:54 AM EDT [facility] MCHC 30.1(L) 30.5 - 36.0 g/dL 11/14/2024 11:54 AM EDT [facility] RDW-CV 19.1(H) 11.5 - 15.0 % 11/14/2024 11:54 AM EDT [facility] Platelets 507(H) 150 - 400 k/uL 11/14/2024 11:54 AM EDT [facility] MPV 9.1 9.0 - 12.7 fL 11/14/2024 11:54 AM EDT [facility] Neutrophils Relatives 74.2 % 11/14/2024 11:54 AM EDT [facility] Neutrophils Absolute 1.92 1.45 - 7.50 k/uL 11/14/2024 11:54 [facility] Lymphocytes % by manual count 15.8 % 11/14/2024 11:54 AM EDT [facility] Lymphocytes Absolute 0.41(L) 1.00 - 4.00 k/uL 11/14/2024 11:54 AM EDT [facility] Monocytes % by manual count= 3.1 % 11/14/2024 11:54 AM EDT [facility] Monocytes Absolute 0.08 <0.87 k/uL 11/14/2024 11:54 AM EDT [facility] Eosinophils Manual 0.4 % 11/14/2024 11:54 AM EDT [facility] Eosinophils Absolute <0.03 <0.46 k/uL 11/14/2024 11:54 AM EDT [facility] Basophils manual 2.3 % 11/15/19 11:54 AM EDT [facility] Basophils Absolute 0.06 <0.11 k/uL 11/14/2024 11:54 AM EDT [facility] Immature grans % 4.2 % 11/15/19 11:54 AM EDT [facility] Grans (Absolute) 0.11(H) <0.10 k/uL 11/14/2024 11:54 AM EDT [facility] NRBC % Auto 1.2 /100 WBC 11/14/2024 11:54 AM EDT [facility] Absolute NRBC 0.03(H) <0.01 k/uL 11/14/2024 11:54 AM EDT [facility] Differential Type Auto 025 11:54 AM EDT [facility] Blood (Blood, Venous) 11/14/2024 3:30 AM EDT 11/14/2024 9:09 AM EDT David Cruz DO LAB BLOOD ORDERABLES Final R esult [facility] [address] [place] [address] [facility] [address] [place] [address] * (ABNORMAL) N-Terminal ProBNP (11/14/2024 3:30 AM EDT) NT PRO BNP 543(H) <125 pg/mL 11/14/2024 11:01 AM EDT [facility] Blood (Blood, Venous) 11/14/2024 3:30 AM EDT 11/14/2024 9:09 AM EDT David Cruz LAB BLOOD ORDERABLES Final R esult Performing Organization Address City/[facility] Co de Phone Number [facility] [address] [place] [address] [facility] [id number] [place] [phone] * Tacrolimus level (11/14/2024 3:30 AM EDT) Tacrolimus Lvl 10.2 5.0 - 20.0 ng/mL 11/14/2024 5:31 PM EDT [facility] Comment: Individualized target levels for a given patient will depend on many factors (including the type of organ transplant, time since transplantation, concurrent medications, and other clinical factors), and should be assessed by those health care providers experienced in the management of immunosuppression. Reference ranges and high/low indicator flags are provided as general guidelines only. The treating physician must determine appropriate target levels/dosing based on the specific clinical situation. Test performed by chemiluminescent immunoassay using [employer] Alinity i. Blood (Blood, Venous) 11/14/2024 3:30 AM EDT 11/14/2024 2:16 PM EDT [facility] BLOOD ORDERABLES Final R esult Performing Organization Address [facility] Co de Phone Number [facility] [address] [place] [address] [facility] [address] [address] * (ABNORMAL) PHOSPHORUS (11/14/2024 3:30 AM EDT) Phosphorus 4.9(H) 2.7 - 4.8 mg/dL 11/14/2024 10:46 AM EDT [facility] Blood (Blood, Venous) 11/14/2024 3:30 AM EDT 11/14/2024 9:09 AM EDT [facility] BLOOD ORDERABLES Final R esult Performing Organization Address City/[facility] de Phone Number [facility] [address] [place] [address] [facility] [address] [place] [phone] * MAGNESIUM (11/11/2024 5:06 AM EDT) Pathologist [facility] Magnesium 2.2 1.7 - 2.3 mg/dL 11/11/2024 10:00 AM EDT [facility] Blood (Blood, Venous) 11/11/2024 5:06 AM EDT 11/11/2024 8:54 AM EDT [facility] LAB BLOOD ORDERABLES Final R esult Performing Organization Address [facility] de Phone Number [place] [phone] [place] [address] [facility] [address] [place] [phone] * (ABNORMAL) GAMMA GT (11/11/2024 5:06 AM EDT) Pathologist [facility] GGT 93(H) 10 - 70 U/L 11/11/2024 4:05 PM EDT [facility] Blood (Blood, Venous) 11/11/2024 5:06 AM EDT 11/11/2024 12:22 PM EDT [facility] LAB BLOOD ORDERABLES Final R esult Performing Organization Address [facility] Co de Phone Number [address] [address] [facility] [address] [place] [address] * (ABNORMAL) C-REACTIVE PROTEIN (11/11/2024 5:06 AM EDT) CRP 16.9(H) <0.9 mg/dL 11/11/2024 10:00 AM EDT [facility] Blood (Blood, Venous) 11/11/2024 5:06 AM EDT 11/11/2024 8:54 AM EDT David Cruz DO LAB BLOOD ORDERABLES Final R esult [facility] [address] [place] [address] [facility] [address] [place] [address] * (ABNORMAL) COMPREHENSIVE METABOLIC PANEL (11/11/2024 5:06 AM EDT) Total Protein 5.8(L) 6.3 - 8.0 g/dL 11/11/2024 10:00 AM EDT [facility] Albumin 3.0(L) 3.9 - 4.9 g/dL 11/11/2024 10:00 AM [facility] Calcium 8.8 8.5 - 10.2 mg/dL 11/11/2024 10:[facility] Bilirubin, Total 0.3 0.2 - 1.3 mg/dL 11/11/2024 10:00 AM [facility] Alkaline phosphatase 151(H) 38 - 113 U/L 11/11/2024 10:[facility] AST 19 14 - 40 U/L 11/11/2024 10:00 AM [facility] ALT (SGPT) 11 10 - 54 U/L 11/11/2024 10:00 AM [facility] Glucose 90 74 - 99 mg/dL 11/11/2024 10:00 AM [facility] Comment: The [place] Diabetes [employer] (ADA) provides guidance for cutoff values for fasting glucose and random glucose. The ADA defines fasting as no caloric intake for at least 8 hours. Fasting plasma glucose results between 100 to 125 mg/dL indicate increased risk for diabetes (prediabetes). Fasting plasma glucose results greater than or equal to 126 mg/dL meet the criteria for diagnosis of diabetes. In the absence of unequivocal hyperglycemia, results should be confirmed by repeat testing. In a patient with classic symptoms of hyperglycemia or hyperglycemic crisis, random plasma glucose results greater than or equal to 200 mg/dL meet the criteria for diagnosis of diabetes. Reference: Standards of Medical Care in Diabetes 2016, [place] [employer]. Diabetes Care. 2016.39(Suppl 1). BUN 18 9 - 24 mg/dL 11/11/2024 10:00 AM [facility] Creatinine, Ser 1.52(H) 0.73 - 1.22 mg/dL 11/11/2024 10:00 AM [facility] Sodium 136 136 - 144 mmol/L 11/11/2024 10:00 [facility] Potassium 5.0 3.7 - 5.1 mmol/L 11/11/2024 10:00 [facility] Chloride 100 98 - 107 mmol/L 11/11/2024 10:00 [facility] CO2 24 22 - 30 mmol/L 11/11/2024 10:00 AM [facility] Anion Gap 12 8 - 15 mmol/L 11/11/2024 10:00 AM [facility] Estimated glomerular filtration rate 49(L) >=60 mL/min/1. 73m 11/11/2024 10:00 AM EDT [facility] Comment: Estimated Glomerular Filtration Rate (eGFR) is calculated using the 2020 CKD-EPI creatinine equation. This equation utilizes serum creatinine, sex, and age as parameters. The creatinine assay has traceable calibration to isotope dilution- mass spectrometry. Refer to KDIGO guidelines for clinical interpretation. In patients with unstable renal function, e.g. those with acute kidney injury, the eGFR may not accurately reflect actual GFR. Blood (Blood, Venous) 11/11/2024 5:06 AM EDT 11/11/2024 8:54 AM EDT David Cruz DO LAB BLOOD ORDERABLES Final R esult [facility] [address] [place] [address] [facility] [address] [place] [address] * CMV DNA, QUANTITATIVE, PCR (11/11/2024 5:06 AM EDT) Cytomegalovirus LOG (copies/mL) Not detected Not Detected 11/11/2024 10:07 PM EDT [facility] Blood (Blood, Venous) 11/11/2024 5:06 AM EDT 11/11/2024 1:39 PM EDT David Cruz DO LAB BLOOD ORDERABLES Final R esult [facility] [address] [place] [address] [facility] [address] [facility] [address] [place] [address] * (ABNORMAL) CBC AUTO DIFFERENTIAL (11/11/2024 5:06 AM EDT) WBC 3.22(L) 3.70 - 11.00 k/uL 11/11/2024 10:13 AM EDT [facility] RBC 2.60(L) 4.20 - 6.00 m/uL 11/11/2024 10:13 AM EDT [facility] Hemoglobin 8.0(L) 13.0 - 17.0 g/dL 11/11/2024 10:13 AM EDT [facility] Hematocrit 25.6(L) 39.0 - 51.0 % 11/11/2024 10:[facility] MCV 98.5 80.0 - 100.0 fL 11/11/2024 10:13 AM EDT [facility] MCH 30.8 26.0 - 34.0 pg 11/11/2024 10:13 AM EDT [facility] MCHC 31.3 30.5 - 36.0 g/dL 11/11/2024 10:13 AM EDT [facility] RDW-CV 18.6(H) 11.5 - 15.0 % 11/11/2024 10:13 [facility] Platelets 561(H) 150 - 400 k/uL 11/11/2024 10:13 AM EDT [facility] MPV 9.0 9.0 - 12.7 fL 11/11/2024 10:13 AM EDT [facility] nRBC 0.0 /100 WBC 11/11/2024 10:13 AM EDT [facility] Absolute nucleated RBC count <0.01 <0.01 k/uL 11/11/2024 10:13 AM EDT [facility] total neutrophils,% 80.0 % 11/11/2024 10:13 AM EDT [facility] ANC 2.58 1.45 - 7.50 k/uL 11/11/2024 10:13 AM EDT [facility] Lymphocytes Relative 7.0 % 11/11/2024 10:13 AM EDT [facility] Lymphocytes Absolute 0.23(L) 1.00 - 4.00 k/uL 11/11/2024 10:13 AM EDT [facility] MONO % 3.0 % 11/11/2024 10:13 AM EDT [facility] Monocytes Absolute 0.10 <0.87 k/uL 11/11/2024 10:13 AM EDT [facility] Eosinophils Relative 3.0 % 11/11/2024 10:13 AM EDT [facility] Eosinophils Absolute 0.10 <0.46 k/uL 11/11/2024 10:13 AM EDT [facility] Basophils Relative 4.0 % 11/11/2024 10:13 AM EDT [facility] Basophils Absolute 0.13(H) <0.11 k/uL 11/11/2024 10:13 AM EDT [facility] Metamyelocytes Relative percent 3.0 % 11/11/2024 10:13 AM EDT [facility] WBC Left Shift Present 11/11/2024 10:13 AM EDT [facility] Platelet Estimate Increased 025 10:13 AM EDT [facility] RBC Morphology Reviewed: see results of individual morphologies 11/11/2024 10:13 AM EDT [facility] Polychromasia Slight 11/11/2024 10:13 AM EDT [facility] Anisocytosis Present 11/11/2024 10:13 AM EDT [facility] Ovalocytes Few 11/11/2024 10:13 AM EDT [facility] Differential Type Manual 025 10:13 [facility] Blood (Blood, Venous) 11/11/2024 5:06 AM EDT 11/11/2024 8:54 AM EDT us David Cruz DO LAB BLOOD ORDERABLES Final R esult [facility] [address] [place] [address] [facility] [address] [place] [address] * (ABNORMAL) N-Terminal ProBNP (11/11/2024 5:06 AM EDT) [facility] NT PRO BNP 453(H) <125 pg/mL 11/11/2024 9:47 AM EDT [facility] Blood (Blood, Venous) 11/11/2024 5:06 AM EDT 11/11/2024 8:54 AM EDT [facility] BLOOD ORDERABLES Final R esult Performing Organization Address City/[facility] Co de Phone Number [facility] [address] [place] [address] [facility] [id number] [place] [phone] * Tacrolimus level (11/11/2024 5:06 AM EDT) [facility] Tacrolimus Lvl 11.5 5.0 - 20.0 ng/mL 11/11/2024 6:13 PM EDT [facility] Comment: Individualized target levels for a given patient will depend on many factors (including the type of organ transplant, time since transplantation, concurrent medications, and other clinical factors), and should be assessed by those health care providers experienced in the management of immunosuppression. Reference ranges and high/low indicator flags are provided as general guidelines only. The treating physician must determine appropriate target levels/dosing based on the specific clinical situation. Test performed by chemiluminescent immunoassay using [employer] Al[employer] i. Blood (Blood, Venous) 11/11/2024 5:06 AM EDT 11/11/2024 1:39 PM EDT [facility] BLOOD ORDERABLES Final R esult Performing Organization Address City/[facility] Co de Phone Number [facility] [address] [place] [address] [facility] [address] [address] * PHOSPHORUS (11/11/2024 5:06 AM EDT) [facility] Phosphorus 3.9 2.7 - 4.8 mg/dL 11/11/2024 9:53 AM EDT [facility] Blood (Blood, Venous) 11/11/2024 5:06 AM EDT 11/11/2024 8:54 AM EDT David Cruz DO LAB BLOOD ORDERABLES Final R esult Performing Organization Address [facility] Co de Phone Number [facility] [address] [place] [address] [facility] [address] [place] [address] * Magnesium (11/09/2024 6:05 AM EDT) Magnesium 2.1 1.7 - 2.3 mg/dL 11/10/2024 9:11 AM EDT [facility] Blood (Blood, Venous) 11/09/2024 6:05 AM EDT 11/10/2024 8:22 AM EDT Chelsea Cunningham MD LAB BLOOD ORDERABLES Final Result Performing Organization Address [facility] de Phone Number [place] [phone] [place] [address] [facility] [address] [place] [address] * (ABNORMAL) Renal Function Panel (11/09/2024 6:05 AM EDT) Albumin 3.0(L) 3.9 - 4.9 g/dL 11/10/2024 9:11 AM EDT [facility] Calcium 8.6 8.5 - 10.2 mg/dL 11/10/2024 9:11 AM EDT [facility] Phosphorus 4.2 2.7 - 4.8 mg/dL 11/10/2024 9:11 AM EDT [facility] Glucose 85 74 - 99 mg/dL 11/10/2024 9:11 AM EDT [facility] Comment: The [place] Diabetes [employer] (ADA) provides guidance for cutoff values for fasting glucose and random glucose. The ADA defines fasting as no caloric intake for at least 8 hours. Fasting plasma glucose results between 100 to 125 mg/dL indicate increased risk for diabetes (prediabetes). Fasting plasma glucose results greater than or equal to 126 mg/dL meet the criteria for diagnosis of diabetes. In the absence of unequivocal hyperglycemia, results should be confirmed by repeat testing. In a patient with classic symptoms of hyperglycemia or hyperglycemic crisis, random plasma glucose results greater than or equal to 200 mg/dL meet the criteria for diagnosis of diabetes. Reference: Standards of Medical Care in Diabetes 2016, [place] [employer]. Diabetes Care. 2016.39(Suppl 1). BUN 18 9 - 24 mg/dL 11/10/2024 9:11 AM [facility] Creatinine, Ser 1.46(H) 0.73 - 1.22 mg/dL 11/10/2024 9:11 AM EDT [facility] Sodium 134(L) 136 - 144 mmol/L 11/10/2024 9:11 AM EDT [facility] Potassium 5.0 3.7 - 5.1 mmol/L 11/10/2024 9:11 AM EDT [facility] Chloride 99 98 - 107 mmol/L 11/10/2024 9:11 AM EDT [facility] CO2 25 22 - 30 mmol/L 11/10/2024 9:11 AM EDT [facility] Anion Gap 10 8 - 15 mmol/L 11/10/2024 9:11 AM EDT [facility] Estimated glomerular filtration rate 51(L) >=60 mL/min/1. 73m 11/10/2024 9:11 AM [facility] Comment: Estimated Glomerular Filtration Rate (eGFR) is calculated using the 2020 CKD-EPI creatinine equation. This equation utilizes serum creatinine, sex, and age as parameters. The creatinine assay has traceable calibration to isotope dilution- mass spectrometry. Refer to KDIGO guidelines for clinical interpretation. In patients with unstable renal function, e.g. those with acute kidney injury, the eGFR may not accurately reflect actual GFR. Blood (Blood, Venous) 11/09/2024 6:05 AM EDT 11/10/2024 8:22 AM EDT us Chelsea Cunningham MD LAB BLOOD ORDERABLES Final Result [facility] [address] [place] [address] [facility] [address] [place] [address] * (ABNORMAL) Urinalysis w/reflex to Microscopic (11/08/2024 6:23 PM EDT) Color Yellow yellow 11/08/2024 10:10 PM [facility] Clarity Clear Clear 11/08/2024 10:10 PM [facility] Glucose, Ur Negative Trace, Negative 11/08/2024 10:10 PM [facility] Bilirubin Urine Negative Negative 11/08/2024 10:10 PM [facility] Ketones, urine Negative Negative, Trace 11/08/2024 10:10 PM [facility] Specific [place], Urine 1.021 1.005 - 1.030 11/08/2024 10:10 PM [facility] Blood, Urine Negative Negative, Trace 11/08/2024 10:10 PM [facility] pH, Urine 6.5 5.0 - 8.0 11/08/2024 10:10 PM [facility] Protein, Ur Trace Trace, Negative 11/08/2024 10:10 PM [facility] Urobilinogen, UA Normal Normal 11/08/2024 10:10 PM [facility] Nitrite, UA Negative Negative 11/08/2024 10:10 PM [facility] Leukest Negative Negative, 25 Eder/uL 11/08/2024 10:10 PM [facility] WBC, UA 0-5 /HPF 0-5 /HPF 11/08/2024 10:10 PM [facility] RBC, UA 0-3 /HPF 0-3 /HPF 11/08/2024 10:10 PM [facility] Bacteria, Urine Few(A) None Seen /HPF 11/08/2024 10:10 PM [facility] Epithelial Cells, Wet Prep Few /HPF 11/08/2024 10:10 PM [facility] Hyaline Casts, UA >10 /LPF(A) 0 /LPF 11/08/2024 10:10 PM [facility] Urine 11/08/2024 6:23 PM EDT 11/08/2024 9:55 PM EDT us Betty Dias DO LAB URINE ORDERABLES Final Res ult [facility] [address] [place] [address] [facility] [address] [facility] [place] [address] * US renal complete (11/08/2024 1:00 PM EDT) Anatomical Region Laterality Modality Body Ultrasound 11/08/2024 1:00 PM EDT Impressions 11/08/2024 1:54 PM EDT IMPRESSION: Sonographically unremarkable the kidneys. Complex fluid, with septations noted in the anterior lower pelvis. Stripper Apprentice: PSCB Transcribe Date/Time: Nov 08 2024 1:49P Dictated by : CHARIS WHALEN MD This examination was interpreted and the report reviewed and electronically signed by: CHARIS WHALEN MD on Nov 08 2024 1:52PM EST Narrative 11/08/2024 1:54 PM EDT * * *Final Report* * * DATE OF EXAM: Nov 08 2024 1:00PM [facility] 1055 - US KIDNEY/BLADDER / PROCEDURE REASON: RENATE * * * * Physician Interpretation * * * * EXAMINATION: RENAL ULTRASOUND CLINICAL HISTORY: Acute kidney injury. TECHNIQUE: Sonography of the kidneys and urinary bladder was performed. Images were obtained and stored in a permanent archive. MQ: [id number] COMPARISON: None RESULT: Right Kidney: -Renal length: 10.6 cm -Parenchyma: Normal parenchymal echogenicity. Normal parenchymal thickness. -Collecting system: No hydronephrosis. -Calculus: No echogenic, shadowing calculus. -Lesion: None. Left Kidney: -Renal length: 10.1 cm -Parenchyma: Normal parenchymal echogenicity. Normal parenchymal thickness. -Collecting system: No hydronephrosis. -Calculus: No echogenic, shadowing calculus. -Lesion: None. Bladder: The prevoid urinary bladder volume is 67 cc. Anterior to the urinary bladder a cystic, multiseptated region is identified, likely representing complex fluid. Procedure Note System, Provider Not In - 11/08/2024 * * *Final Report* * * DATE OF EXAM: Nov 08 2024 1:00PM S0 [id number] - US KIDNEY/BLADDER / PROCEDURE REASON: RENATE * * * * Physician Interpretation * * * * EXAMINATION: RENAL ULTRASOUND CLINICAL HISTORY: Acute kidney injury. TECHNIQUE: Sonography of the kidneys and urinary bladder was performed. Images were obtained and stored in a permanent archive. MQ: [id number] COMPARISON: None RESULT: Right Kidney: -Renal length: 10.6 cm -Parenchyma: Normal parenchymal echogenicity. Normal parenchymal thickness. -Collecting system: No hydronephrosis. -Calculus: No echogenic, shadowing calculus. -Lesion: None. Left Kidney: -Renal length: 10.1 cm -Parenchyma: Normal parenchymal echogenicity. Normal parenchymal thickness. -Collecting system: No hydronephrosis. -Calculus: No echogenic, shadowing calculus. -Lesion: None. Bladder: The prevoid urinary bladder volume is 67 cc. Anterior to the urinary bladder a cystic, multiseptated region is identified, likely representing complex fluid. IMPRESSION: IMPRESSION: Sonographically unremarkable the kidneys. Complex fluid, with septations noted in the anterior lower pelvis. Stripper Apprentice: [facility] Transcribe Date/Time: Nov 08 2024 1:49P Dictated by : CHARIS WHALEN MD This examination was interpreted and the report reviewed and electronically signed by: CHARIS WHALEN MD on Nov 08 2024 1:52PM EST Betty HERZOG US ORDERABLES Final Result * PHOSPHORUS (11/08/2024 5:21 AM EDT) Phosphorus 4.4 2.7 - 4.8 mg/dL 11/08/2024 8:26 AM EDT [facility] Blood 11/08/2024 5:21 AM EDT 11/08/2024 7:52 AM EDT Barry Palmer APRN LAB BLOOD ORDERABLES Final Re sult [facility] [address] [place] [address] [facility] [address] [place] [address] * (ABNORMAL) BASIC METABOLIC PANEL (11/08/2024 5:21 AM EDT) Glucose 92 74 - 99 mg/dL 11/08/2024 8:26 AM [facility] Comment: The [place] Diabetes [employer] (ADA) provides guidance for cutoff values for fasting glucose and random glucose. The ADA defines fasting as no caloric intake for at least 8 hours. Fasting plasma glucose results between 100 to 125 mg/dL indicate increased risk for diabetes (prediabetes). Fasting plasma glucose results greater than or equal to 126 mg/dL meet the criteria for diagnosis of diabetes. In the absence of unequivocal hyperglycemia, results should be confirmed by repeat testing. In a patient with classic symptoms of hyperglycemia or hyperglycemic crisis, random plasma glucose results greater than or equal to 200 mg/dL meet the criteria for diagnosis of diabetes. Reference: Standards of Medical Care in Diabetes 2016, [place] [employer]. Diabetes Care. 2016.39(Suppl 1). BUN 17 9 - 24 mg/dL 11/08/2024 8:26 AM [facility] Creatinine, Ser 1.55(H) 0.73 - 1.22 mg/dL 11/08/2024 8:26 AM [facility] Sodium 135(L) 136 - 144 mmol/L 11/08/2024 8:26 AM [facility] Potassium 4.6 3.7 - 5.1 mmol/L 11/08/2024 8:26 AM [facility] Chloride 97(L) 98 - 107 mmol/L 11/08/2024 8:26 AM [facility] CO2 27 22 - 30 mmol/L 11/08/2024 8:26 AM [facility] Anion Gap 11 8 - 15 mmol/L 11/08/2024 8:26 AM [facility] Calcium 9.0 8.5 - 10.2 mg/dL 11/08/2024 8:26 AM [facility] Estimated glomerular filtration rate 48(L) >=60 mL/min/1. 73m 11/08/2024 8:26 AM [facility] Comment: Estimated Glomerular Filtration Rate (eGFR) is calculated using the 2020 CKD-EPI creatinine equation. This equation utilizes serum creatinine, sex, and age as parameters. The creatinine assay has traceable calibration to isotope dilution- mass spectrometry. Refer to KDIGO guidelines for clinical interpretation. In patients with unstable renal function, e.g. those with acute kidney injury, the eGFR may not accurately reflect actual GFR. Blood (Blood, Venous) 11/08/2024 5:21 AM EDT 11/08/2024 7:52 AM EDT Betty Dias DO LAB BLOOD ORDERABLES Final Res ult Performing Organization Address [facility] Co de Phone Number [facility] [address] [place] [address] [facility] [address] [place] [id number] * Magnesium (11/08/2024 5:21 AM EDT) Magnesium 2.1 1.7 - 2.3 mg/dL 11/08/2024 8:26 AM EDT [facility] Blood (Blood, Venous) 11/08/2024 5:21 AM EDT 11/08/2024 7:52 AM EDT Barry Palmer APRN LAB BLOOD ORDERABLES Final Re sult Performing Organization Address [facility] de Phone Number [facility] [address] [place] [address] [facility] [address] [place], [place] [id number] * XR ABDOMEN 1 VWS (11/07/2024 2:24 PM EDT) Anatomical Region Laterality Modality Body Computed Radiogr aphy 11/07/2024 2:24 PM EDT Impressions 11/07/2024 2:54 PM EDT IMPRESSION: Nonspecific, nonobstructive bowel gas pattern. Stripper Apprentice: [facility] Transcribe Date/Time: Nov 07 2024 2:50P Dictated by : AMARILIS MACK MD This examination was interpreted and the report reviewed and electronically signed by: AMARILIS MACK MD on Nov 07 2024 2:52PM EST Narrative 11/07/2024 2:54 PM EDT * * *Final Report* * * DATE OF EXAM: Nov 07 2024 2:24PM S0X [id number] - XR ABDOMEN 1V SUPINE / PROCEDURE REASON: ABD PAIN, FEVER, NO RECENT SURGERY * * * * Physician Interpretation * * * * Clinical Information: Abdominal distention Supine views of the abdomen were obtained. Gas-filled loops of small and large bowel in a nonspecific and nonobstructive pattern. No abnormal abdominal masses are identified. No pathologic calcifications. Common bile duct stent. Surgical clips right upper quadrant. Surgical drain tip within the gallbladder fossa. No acute bony abnormalities are seen. Procedure Note System, Provider Not In - 11/07/2024 * * *Final Report* * * DATE OF EXAM: Nov 07 2024 2:24PM S0X [id number] - XR ABDOMEN 1V SUPINE / PROCEDURE REASON: ABD PAIN, FEVER, NO RECENT SURGERY * * * * Physician Interpretation * * * * Clinical Information: Abdominal distention Supine views of the abdomen were obtained. Gas-filled loops of small and large bowel in a nonspecific and nonobstructive pattern. No abnormal abdominal masses are identified. No pathologic calcifications. Common bile duct stent. Surgical clips right upper quadrant. Surgical drain tip within the gallbladder fossa. No acute bony abnormalities are seen. IMPRESSION: IMPRESSION: Nonspecific, nonobstructive bowel gas pattern. [facility] Transcribe Date/Time: Nov 07 2024 2:50P Dictated by : AMARILIS MACK MD This examination was interpreted and the report reviewed and electronically signed by: AMARILIS MACK MD on Nov 07 2024 2:52PM EST David Cruz DO IMG DIAGNOSTIC IMAGING ORDER CAROLE Final Result * MAGNESIUM (11/07/2024 10:56 AM EDT) Magnesium 2.0 1.7 - 2.3 mg/dL 11/07/2024 2:50 PM EDT [facility] Blood (Blood, Venous) 11/07/2024 10:56 AM EDT 11/07/2024 11:40 AM EDT David Cruz DO LAB BLOOD ORDERABLES Final R esult [facility] [address] [place] [address] [facility] [id number] [place] [address] * (ABNORMAL) GAMMA GT (11/07/2024 10:56 AM EDT) Pathologist [facility] GGT 98(H) 10 - 70 U/L 11/07/2024 11:09 PM EDT [facility] Blood (Blood, Venous) 11/07/2024 10:56 AM EDT 11/07/2024 2:47 PM EDT [facility] Anthony LAB BLOOD ORDERABLES Final R esult [facility] [address] [place] [address] [facility] [address] [facility] [address] [place] [address] * (ABNORMAL) C-REACTIVE PROTEIN (11/07/2024 10:56 AM EDT) Pathologist [facility] CRP 17.2(H) <0.9 mg/dL 11/07/2024 2:50 PM EDT [facility] Blood (Blood, Venous) 11/07/2024 10:56 AM EDT 11/07/2024 11:40 AM EDT [facility] LAB BLOOD ORDERABLES Final R esult Performing Organization Address City/[facility]/ZIP Co de Phone Number [facility] [address] [place] [address] [facility] [address] [place] [address] * (ABNORMAL) COMPREHENSIVE METABOLIC PANEL (11/07/2024 10:56 AM EDT) Pathologist [facility] Total Protein 5.4(L) 6.3 - 8.0 g/dL 11/07/2024 2:50 PM EDT [facility] Albumin 3.0(L) 3.9 - 4.9 g/dL 11/07/2024 2:50 PM EDT [facility] Calcium 8.8 8.5 - 10.2 mg/dL 11/07/2024 2:50 PM EDT [facility] Bilirubin, Total 0.3 0.2 - 1.3 mg/dL 11/07/2024 2:50 PM [facility] Alkaline phosphatase 156(H) 38 - 113 U/L 11/07/2024 2:50 PM [facility] AST 18 14 - 40 U/L 11/07/2024 2:50 PM [facility] ALT (SGPT) 12 10 - 54 U/L 11/07/2024 2:50 PM [facility] Glucose 77 74 - 99 mg/dL 11/07/2024 2:50 PM [facility] Comment: The [place] Diabetes Association (ADA) provides guidance for cutoff values for fasting glucose and random glucose. The ADA defines fasting as no caloric intake for at least 8 hours. Fasting plasma glucose results between 100 to 125 mg/dL indicate increased risk for diabetes (prediabetes). Fasting plasma glucose results greater than or equal to 126 mg/dL meet the criteria for diagnosis of diabetes. In the absence of unequivocal hyperglycemia, results should be confirmed by repeat testing. In a patient with classic symptoms of hyperglycemia or hyperglycemic crisis, random plasma glucose results greater than or equal to 200 mg/dL meet the criteria for diagnosis of diabetes. Reference: Standards of Medical Care in Diabetes 2016, [place] [employer]. Diabetes Care. 2016.39(Suppl 1). BUN 16 9 - 24 mg/dL 11/07/2024 2:50 PM [facility] Creatinine, Ser 1.50(H) 0.73 - 1.22 mg/dL 11/07/2024 2:50 PM [facility] Sodium 136 136 - 144 mmol/L 11/07/2024 2:50 PM [facility] Potassium 4.8 3.7 - 5.1 mmol/L 11/07/2024 2:50 PM [facility] Chloride 96(L) 98 - 107 mmol/L 11/07/2024 2:50 PM [facility] CO2 24 22 - 30 mmol/L 11/07/2024 2:50 PM [facility] Anion Gap 16(H) 8 - 15 mmol/L 11/07/2024 2:50 PM [facility] Estimated glomerular filtration rate 49(L) >=60 mL/min/1. 73m 11/07/2024 2:50 PM [facility] Comment: Estimated Glomerular Filtration Rate (eGFR) is calculated using the 2020 CKD-EPI creatinine equation. This equation utilizes serum creatinine, sex, and age as parameters. The creatinine assay has traceable calibration to isotope dilution- mass spectrometry. Refer to KDIGO guidelines for clinical interpretation. In patients with unstable renal function, e.g. those with acute kidney injury, the eGFR may not accurately reflect actual GFR. Blood (Blood, Venous) 11/07/2024 10:56 AM EDT 11/07/2024 11:40 AM EDT David Cruz DO LAB BLOOD ORDERABLES Final R esult [facility] [address] [place] [address] [facility] [address] [place] [address] * (ABNORMAL) CBC AUTO DIFFERENTIAL (11/07/2024 10:56 AM EDT) WBC 3.16(L) 3.70 - 11.00 k/uL 11/07/2024 12:39 PM EDT [facility] RBC 2.48(L) 4.20 - 6.00 m/uL 11/07/2024 12:39 PM [facility] Hemoglobin 7.5(L) 13.0 - 17.0 g/dL 11/07/2024 12:39 PM EDT [facility] Hematocrit 23.7(L) 39.0 - 51.0 % 11/07[facility]2024 12:[facility] MCV 95.6 80.0 - 100.0 fL 11/07/2024 12:39 PM EDT [facility] MCH 30.2 26.0 - 34.0 pg 11/07/2024 12:39 PM EDT [facility] MCHC 31.6 30.5 - 36.0 g/dL 11/07/2024 12:39 PM EDT [facility] RDW-CV 17.9(H) 11.5 - 15.0 % 11/07/2024 12:39 PM EDT [facility] Platelets 580(H) 150 - 400 k/uL 11/07/2024 12:39 PM EDT [facility] MPV 9.3 9.0 - 12.7 fL 11/07/2024 12:39 PM EDT [facility] nRBC 0.0 /100 WBC 11/07/2024 12:39 PM EDT [facility] Absolute nucleated RBC count <0.01 <0.01 k/uL 11/07/2024 12:39 PM EDT [facility] total neutrophils,% 76.0 % 11/07/2024 12:39 PM EDT [facility] ANC 2.40 1.45 - 7.50 k/uL 11/07/2024 12:39 PM EDT [facility] Lymphocytes Relative 14.0 % 11/07/2024 12:39 PM EDT [facility] Lymphocytes Absolute 0.44(L) 1.00 - 4.00 k/uL 11/07/2024 12:39 PM EDT [facility] MONO % 5.0 % 11/07/2024 12:39 PM EDT [facility] Monocytes Absolute 0.16 <0.87 k/uL 11/07/2024 12:39 PM EDT [facility] Eosinophils Relative 1.0 % 11/07/2024 12:39 PM EDT [facility] Eosinophils Absolute 0.03 <0.46 k/uL 11/07/2024 12:39 PM EDT [facility] Basophils Relative 3.0 % 11/07/2024 12:39 PM EDT [facility] Basophils Absolute 0.09 <0.11 k/uL 11/07/2024 12:39 PM EDT [facility] Metamyelocytes Relative percent 1.0 % 11/07/2024 12:39 PM EDT [facility] WBC Left Shift Present 11/07/2024 12:39 PM EDT [facility] Platelet Estimate Increased 12:39 PM EDT [facility] RBC Morphology Reviewed: see results of individual morphologies 11/07/2024 12:39 PM EDT [facility] Anisocytosis Present 11/07/2024 12:39 PM EDT [facility] Differential Type Manual 025 12:39 PM T [facility] Blood (Blood, Venous) 11/07/2024 10:56 AM EDT 11/07/2024 11:44 AM EDT us David Cruz DO LAB BLOOD ORDERABLES Final R esult Performing Organization Address [facility] Co de Phone Number [facility] [address] [place] [address] [facility] [address] [place] [address] * (ABNORMAL) N-Terminal ProBNP (11/07/2024 10:56 AM EDT) NT PRO BNP 365(H) <125 pg/mL 11/07/2024 12:15 PM EDT [facility] Blood (Blood, Venous) 11/07/2024 10:56 AM EDT 11/07/2024 11:40 AM EDT [facility] BLO[facility] Final R esult Performing Organization Address [facility] de Phone Number [facility] [address] [place] [address] [facility] [address] [place] [address] * Tacrolimus level (11/07/2024 10:56 AM EDT) Tacrolimus Lvl 8.6 5.0 - 20.0 ng/mL 11/07/2024 7:56 PM EDT [facility] Comment: Individualized target levels for a given patient will depend on many factors (including the type of organ transplant, time since transplantation, concurrent medications, and other clinical factors), and should be assessed by those health care providers experienced in the management of immunosuppression. Reference ranges and high/low indicator flags are provided as general guidelines only. The treating physician must determine appropriate target levels/dosing based on the specific clinical situation. Test performed by chemiluminescent immunoassay using [employer]. Blood (Blood, Venous) 11/07/2024 10:56 AM EDT 11/07/2024 5:17 PM EDT [facility] BLOOD ORDERABLES Final R esult Performing Organization Address [facility] Co de Phone Number [facility] [employer] [address] [place] [address] [facility] [address] [place] [address], [place] [address] * PHOSPHORUS (11/07/2024 10:56 AM EDT) Phosphorus 4.6 2.7 - 4.8 mg/dL 11/07/2024 12:00 PM EDT [facility] Blood (Blood, Venous) 11/07/2024 10:56 AM EDT 11/07/2024 11:39 AM EDT David Cruz DO LAB BLOOD ORDERABLES Final R esult [facility] [address] [place] [id number] [facility] [address] [place] [id number] * US abdomen limited (11/06/2024 3:45 PM EDT) Anatomical Region Laterality Modality Ultrasound 11/06/2024 3:45 PM EDT Narrative 11/06/2024 4:35 PM EDT * * *Final Report* * * DATE OF EXAM: Nov 06 2024 3:45PM S0U 1064 - awe.sm ABDOMEN LTD / PROCEDURE REASON: ASCITES SURVEY * * * * Physician Interpretation * * * * Clinical information: Ascites Ascites survey was performed. Images were obtained and stored in a permanent archive. Small to moderate volume ascites within the right lower quadrant, left upper quadrant, and left lower quadrant. Ascites contains multiple septations. Partially visualized small right-sided pleural effusion. Impression: Small to moderate volume ascites containing multiple septations Stripper Apprentice: PSCPatricia Transcribe Date/Time: Nov 06 2024 4:32P Dictated by : AMARILIS MACK MD This examination was interpreted and the report reviewed and electronically signed by: AMARILIS MACK MD on Nov 06 2024 4:33PM EST Procedure Note System, Provider Not In - 11/06/2024 * * *Final Report* * * DATE OF EXAM: Nov 06 2024 3:45PM S0U 1064 - US ABDOMEN LTD / PROCEDURE REASON: ASCITES SURVEY * * * * Physician Interpretation * * * * Clinical information: Ascites Ascites survey was performed. Images were obtained and stored in a permanent archive. Small to moderate volume ascites within the right lower quadrant, left upper quadrant, and left lower quadrant. Ascites contains multiple septations. Partially visualized small right-sided pleural effusion. Impression: Small to moderate volume ascites containing multiple septations Stripper Apprentice: [facility] Transcribe Date/Time: Nov 06 2024 4:32P Dictated by : AMARILIS MACK MD This examination was interpreted and the report reviewed and electronically signed by: AMARILIS MACK MD on Nov 06 2024 4:33PM EST us Betty K Larissa DO IMG US ORDERABLES Final Result * XR lumbar spine 1 vws (11/04/2024 3:30 PM EDT) Anatomical Region Laterality Modality Computed Radiogr aphy 11/04/2024 3:30 PM EDT Narrative 11/04/2024 4:34 PM EDT * * *Final Report* * * DATE OF EXAM: Nov 04 2024 3:30PM S0X [id number] - XR LUMBAR 1V / PROCEDURE REASON: 11/24 acute on chronic back pain with hx of compression fractures * * * * Physician Interpretation * * * * Information: Back pain, compression fractures Limited AP only view of the lumbar spine was obtained. Study correlated with CT scan dated 10/24/2024. Compression deformities involving T11 and T12, visualization is limited. No definite lumbar compression fractures. Lumbar disc spaces are grossly maintained. Impression: Limited AP only study with suboptimal visualization of the lumbar spine. No definite lumbar compression fracture. T11 and T12 compression fractures better seen on prior CT scan. Stripper Apprentice: [facility] Transcribe Date/Time: Nov 04 2024 4:31P Dictated by : AMARILIS MACK MD This examination was interpreted and the report reviewed and electronically signed by: AMARILIS MACK MD on Nov 04 2024 4:32PM EST Procedure Note System, Provider Not In - 11/04/2024 * * *Final Report* * * DATE OF EXAM: Nov 04 2024 3:30PM S0X [id number] - XR LUMBAR 1V / PROCEDURE REASON: 11/24 acute on chronic back pain with hx of compression fractures * * * * Physician Interpretation * * * * Information: Back pain, compression fractures Limited AP only view of the lumbar spine was obtained. Study correlated with CT scan dated 10/24/2024. Compression deformities involving T11 and T12, visualization is limited. No definite lumbar compression fractures. Lumbar disc spaces are grossly maintained. Impression: Limited AP only study with suboptimal visualization of the lumbar spine. No definite lumbar compression fracture. T11 and T12 compression fractures better seen on prior CT scan. Stripper Apprentice: PSCPatricia Transcribe Date/Time: Nov 04 2024 4:31P Dictated by : AMARILIS MACK MD This examination was interpreted and the report reviewed and electronically signed by: AMARILIS MACK MD on Nov 04 2024 4:32PM EST Betty Dias DO IMG DIAGNOSTIC IMAGING ORDERAB LES Final Result * (ABNORMAL) MAGNESIUM (11/04/2024 5:10 AM EDT) Magnesium 1.6(L) 1.7 - 2.3 mg/dL 11/04/2024 12:03 PM EDT [facility] Blood (Blood, Venous) 11/04/2024 5:10 AM EDT 11/04/2024 9:37 AM EDT David Cruz LAB BLOOD ORDERABLES Final R esult [facility] [address] [place], [place] [phone] [facility] [address] [place] [address] * (ABNORMAL) GAMMA GT (11/04/2024 5:10 AM EDT) GGT 114(H) 10 - 70 U/L 11/04/2024 2:04 PM EDT [facility] Blood (Blood, Venous) 11/04/2024 5:10 AM EDT 11/04/2024 12:20 PM EDT David Cruz LAB BLOOD ORDERABLES Final R esult Performing Organization Address [facility] Co de Phone Number [facility] [address] [place] [address] [facility] [address] [facility] [address] [place] [address] * (ABNORMAL) C-REACTIVE PROTEIN (11/04/2024 5:10 AM EDT) Pathologist [facility] CRP 20.3(H) <0.9 mg/dL 11/04/2024 12:03 PM EDT [facility] Blood (Blood, Venous) 11/04/2024 5:10 AM EDT 11/04/2024 9:37 AM EDT David Cruz LAB BLOOD ORDERABLES Final R esult Performing Organization Address [facility] Co de Phone Number [facility] [address] [place] [address] [facility] [address] [place] [address] * (ABNORMAL) COMPREHENSIVE METABOLIC PANEL (11/04/2024 5:10 AM EDT) Pathologist [facility] Total Protein 5.2(L) 6.3 - 8.0 g/dL 11/04/2024 12:03 PM EDT [facility] Albumin 2.6(L) 3.9 - 4.9 g/dL 11/04/2024 12:03 PM EDT [facility] Calcium 8.5 8.5 - 10.2 mg/dL 11/04/2024 12:03 PM EDT [facility] Bilirubin, Total 0.3 0.2 - 1.3 mg/dL 11/04/2024 12:03 PM EDT [facility] Alkaline phosphatase 165(H) 38 - 113 U/L 11/04/2024 12:03 PM EDT [facility] AST 17 14 - 40 U/L 11/04/2024 12:03 PM EDT [facility] ALT (SGPT) 10 10 - 54 U/L 11/04/2024 12:03 PM EDT [facility] Glucose 88 74 - 99 mg/dL 11/04/2024 12:03 PM EDT [facility] Comment: The [place] Diabetes [employer] (ADA) provides guidance for cutoff values for fasting glucose and random glucose. The ADA defines fasting as no caloric intake for at least 8 hours. Fasting plasma glucose results between 100 to 125 mg/dL indicate increased risk for diabetes (prediabetes). Fasting plasma glucose results greater than or equal to 126 mg/dL meet the criteria for diagnosis of diabetes. In the absence of unequivocal hyperglycemia, results should be confirmed by repeat testing. In a patient with classic symptoms of hyperglycemia or hyperglycemic crisis, random plasma glucose results greater than or equal to 200 mg/dL meet the criteria for diagnosis of diabetes. Reference: Standards of Medical Care in Diabetes 2016, [place] [employer]. Diabetes Care. 2016.39(Suppl 1). BUN 10 9 - 24 mg/dL 11/04/2024 12:03 PM T [facility] Creatinine, Ser 0.99 0.73 - 1.22 mg/dL 11/04/2024 12:03 PM [facility] Sodium 134(L) 136 - 144 mmol/L 11/04/2024 12:03 PM [facility] Potassium 5.0 3.7 - 5.1 mmol/L 11/04/2024 12:03 PM EDT [facility] Chloride 98 98 - 107 mmol/L 11/04/2024 12:[facility] PM [facility] CO2 25 22 - 30 mmol/L 11/04/2024 12:03 PM [facility] Anion Gap 11 8 - 15 mmol/L 11/04/2024 12:03 PM EDT [facility] Estimated glomerular filtration rate 81 >=60 mL/min/1. 73m 11/04/2024 12:03 PM [facility] [facility] Comment: Estimated Glomerular Filtration Rate (eGFR) is calculated using the 2020 CKD-EPI creatinine equation. This equation utilizes serum creatinine, sex, and age as parameters. The creatinine assay has traceable calibration to isotope dilution- mass spectrometry. Refer to KDIGO guidelines for clinical interpretation. In patients with unstable renal function, e.g. those with acute kidney injury, the eGFR may not accurately reflect actual GFR. Blood (Blood, Venous) 11/04/2024 5:10 AM EDT 11/04/2024 9:37 AM EDT David Cruz DO LAB BLOOD ORDERABLES Final R esult Performing Organization Address [facility] Co de Phone Number [facility] [address] [place] [address] [facility] [address] [place] [address] * CMV DNA, QUANTITATIVE, PCR (11/04/2024 5:10 AM EDT) [facility] Cytomegalovirus LOG (copies/mL) Not detected Not Detected 11/04/2024 9:29 PM EDT [facility] Blood (Blood, Venous) 11/04/2024 5:10 AM EDT 11/04/2024 3:57 PM EDT David Belem HughesAnthony LAB BLOOD ORDERABLES Final R esult Performing Organization Address [facility] Co de Phone Number [facility] [address] [place] [address] [facility] [address] [address] * (ABNORMAL) CBC AUTO DIFFERENTIAL (11/04/2024 5:10 AM EDT) [facility] WBC 3.31(L) 3.70 - 11.00 k/uL 11/04/2024 11:46 AM EDT [facility] RBC 2.56(L) 4.20 - 6.00 m/uL 11/04/2024 11:46 AM EDT [facility] Hemoglobin 7.6(L) 13.0 - 17.0 g/dL 11/04/2024 11:46 AM EDT [facility] Hematocrit 24.5(L) 39.0 - 51.0 % 11/04/2024 11:46 AM EDT [facility] MCV 95.7 80.0 - 100.0 fL 11/04/2024 11:46 AM EDT [facility] MCH 29.7 26.0 - 34.0 pg 11/04/2024 11:46 AM EDT [facility] MCHC 31.0 30.5 - 36.0 g/dL 11/04/2024 11:46 AM EDT [facility] RDW-CV 17.3(H) 11.5 - 15.0 % 11/04/2024 11:46 [facility] Platelets 554(H) 150 - 400 k/uL 11/04/2024 11:46 AM EDT [facility] MPV 8.9(L) 9.0 - 12.7 fL 11/04/2024 11:46 [facility] nRBC 0.0 /100 WBC 11/04/2024 11:46 AM EDT [facility] Absolute nucleated RBC count <0.01 <0.01 k/uL 11/04/2024 11:46 AM EDT [facility] total neutrophils,% 73.0 % 11/04/2024 11:46 [facility] ANC 2.42 1.45 - 7.50 k/uL 11/04/2024 11:46 AM [facility] Lymphocytes Relative 15.0 % 11/04/2024 11:46 AM [facility] Lymphocytes Absolute 0.50(L) 1.00 - 4.00 k/uL 11/04/2024 11:46 AM [facility] MONO % 7.0 % 11/04/2024 11:46 AM [facility] Monocytes Absolute 0.23 <0.87 k/uL 11/04/2024 11:46 AM [facility] Eosinophils Relative 1.0 % 11/04/2024 11:46 AM [facility] Eosinophils Absolute 0.03 <0.46 k/uL 11/04/2024 11:46 AM [facility] Basophils Relative 2.0 % 11/04/2024 11:46 AM [facility] Basophils Absolute 0.07 <0.11 k/uL 11/04/2024 11:46 AM [facility] Metamyelocytes Relative percent 2.0 % 11/04/2024 11:46 AM [facility] WBC Left Shift Present 11/04/2024 11:46 AM [facility] Platelet Estimate Increased 025 11:46 AM [facility] RBC Morphology Reviewed: see results of individual morphologies 11/04/2024 11:46 AM [facility] Anisocytosis Present 11/04/2024 11:46 AM EDT [facility] Ovalocytes Few 11/04/2024 11:46 AM EDT [facility] Differential Type Manual 025 11:46 AM EDT [facility] Blood (Blood, Venous) 11/04/2024 5:10 AM EDT 11/04/2024 9:37 AM EDT [facility] BLOOD ORDERABLES Final R esult Performing Organization Address [facility] Co de Phone Number [facility] [address] [place] [address] [facility] [address] [place] [address] * (ABNORMAL) N-Terminal ProBNP (11/04/2024 5:10 AM EDT) NT PRO BNP 444(H) <125 pg/mL 11/04/2024 11:36 AM EDT [facility] Blood (Blood, Venous) 11/04/2024 5:10 AM EDT 11/04/2024 9:37 AM EDT [facility] BLOOD ORDERABLES Final R esult Performing Organization Address [facility] de Phone Number [facility] [address] [place] [address] [facility] [address] [place] [address] * Tacrolimus level (11/04/2024 5:10 AM EDT) Tacrolimus Lvl 13.8 5.0 - 20.0 ng/mL 11/04/2024 7:52 PM EDT [facility] Comment: Individualized target levels for a given patient will depend on many factors (including the type of organ transplant, time since transplantation, concurrent medications, and other clinical factors), and should be assessed by those health care providers experienced in the management of immunosuppression. Reference ranges and high/low indicator flags are provided as general guidelines only. The treating physician must determine appropriate target levels/dosing based on the specific clinical situation. Test performed by chemiluminescent immunoassay using [employer] i. Blood (Blood, Venous) 11/04/2024 5:10 AM EDT 11/04/2024 3:58 PM EDT [facility] BLOOD ORDERABLES Final R esult Performing Organization Address City/[facility] Co de Phone Number [facility] [address] [place] [address] [facility] [address] [facility] [address] [place] [address] * (ABNORMAL) PHOSPHORUS (11/04/2024 5:10 AM EDT) Phosphorus 4.9(H) 2.7 - 4.8 mg/dL 11/04/2024 11:58 AM EDT [facility] Blood (Blood, Venous) 11/04/2024 5:10 AM EDT 11/04/2024 9:37 AM EDT [facility] BLOOD ORDERABLES Final R esult Performing Organization Address [facility] Co de Phone Number [facility] [address] [place] [address] [facility] [address] [place] [address] * (ABNORMAL) CK (11/04/2024 5:10 AM EDT) CK 10(L) 51 - 298 U/L 11/04/2024 12:03 PM EDT [facility] Blood (Blood, Venous) 11/04/2024 5:10 AM EDT 11/04/2024 9:37 AM EDT [facility] BLOOD ORDERABLES Final R esult Performing Organization Address City/[facility] de Phone Number [facility] [address] [place] [address] [facility] [address] [place] [address] * US abdomen limited (11/03/2024 1:28 PM EDT) Anatomical Region Laterality Modality Ultrasound 11/03/2024 1:28 PM EDT Impressions 11/03/2024 2:16 PM EDT IMPRESSION: Small to moderate volume of multiloculated ascites with numerous septations is similar to prior study. Stripper Apprentice: SRINI Transcribe Date/Time: Nov 03 2024 2:13P Dictated by : JIM LUZ MD This examination was interpreted and the report reviewed and electronically signed by: JIM LUZ MD on Nov 03 2024 2:14PM EST Narrative 11/03/2024 2:16 PM EDT * * *Final Report* * * DATE OF EXAM: Nov 03 2024 1:28PM [facility] 1064 - US ABDOMEN LTD / PROCEDURE REASON: evaluate for ascites * * * * Physician Interpretation * * * * EXAMINATION: US ABDOMEN LTD HISTORY: evaluate for ascites TECHNIQUE: Limited evaluation of the abdomen to evaluate for ascites . Images were obtained and stored in a permanent archive. COMPARISON: 10/29/2024 ultrasound RESULT: See Impression. - Procedure Note System, Provider Not In - 11/03/2024 * * *Final Report* * * DATE OF EXAM: Nov 03 2024 1:28PM [facility] 1064 - US ABDOMEN LTD / PROCEDURE REASON: evaluate for ascites * * * * Physician Interpretation * * * * EXAMINATION: US ABDOMEN LTD HISTORY: evaluate for ascites TECHNIQUE: Limited evaluation of the abdomen to evaluate for ascites . Images were obtained and stored in a permanent archive. COMPARISON: 10/29/2024 ultrasound RESULT: See Impression. - IMPRESSION: IMPRESSION: Small to moderate volume of multiloculated ascites with numerous septations is similar to prior study. Stripper Apprentice: [facility] Transcribe Date/Time: Nov 03 2024 2:13P Dictated by : JIM LZU MD This examination was interpreted and the report reviewed and electronically signed by: JIM LUZ MD on Nov 03 2024 2:14PM EST Suze Jenkins MD [facility] US ORDERABLES Final Result * (ABNORMAL) Renal Function Panel (11/03/2024 5:05 AM EDT) Albumin 2.6(L) 3.9 - 4.9 g/dL 11/03/2024 8:45 AM EDT [facility] Calcium 8.3(L) 8.5 - 10.2 mg/dL 11/03/2024 8:45 AM [facility] Phosphorus 4.4 2.7 - 4.8 mg/dL 11/03/2024 8:45 AM [facility] Glucose 103(H) 74 - 99 mg/dL 11/03/2024 8:45 AM [facility] Comment: The [place] [employer] (ADA) provides guidance for cutoff values for fasting glucose and random glucose. The ADA defines fasting as no caloric intake for at least 8 hours. Fasting plasma glucose results between 100 to 125 mg/dL indicate increased risk for diabetes (prediabetes). Fasting plasma glucose results greater than or equal to 126 mg/dL meet the criteria for diagnosis of diabetes. In the absence of unequivocal hyperglycemia, results should be confirmed by repeat testing. In a patient with classic symptoms of hyperglycemia or hyperglycemic crisis, random plasma glucose results greater than or equal to 200 mg/dL meet the criteria for diagnosis of diabetes. Reference: Standards of Medical Care in Diabetes 2016, [place] [employer]. Diabetes Care. 2016.39(Suppl 1). BUN 8(L) 9 - 24 mg/dL 11/03/2024 8:45 AM [facility] Creatinine, Ser 0.87 0.73 - 1.22 mg/dL 11/03/2024 8:45 AM [facility] Sodium 134(L) 136 - 144 mmol/L 11/03/2024 8:45 AM [facility] Potassium 4.9 3.7 - 5.1 mmol/L 11/03/2024 8:45 AM [facility] Chloride 101 98 - 107 mmol/L 11/03/2024 8:45 AM [facility] CO2 27 22 - 30 mmol/L 11/03/2024 8:45 AM [facility] Anion Gap 6(L) 8 - 15 mmol/L 11/03/2024 8:45 AM [facility] Estimated glomerular filtration rate 92 >=60 mL/min/1. 73m 11/03/2024 8:45 AM [facility] Comment: Estimated Glomerular Filtration Rate (eGFR) is calculated using the 2020 CKD-EPI creatinine equation. This equation utilizes serum creatinine, sex, and age as parameters. The creatinine assay has traceable calibration to isotope dilution- mass spectrometry. Refer to KDIGO guidelines for clinical interpretation. In patients with unstable renal function, e.g. those with acute kidney injury, the eGFR may not accurately reflect actual GFR. Blood (Blood, Venous) 11/03/2024 5:05 AM EDT 11/03/2024 8:06 AM EDT Suze Jenkins MD LAB BLOOD ORDERABLES Final Resu lt Performing Organization Address [facility] Co de Phone Number [facility] [address] [place] [address] [facility] [address] [place] [address] * MAGNESIUM (11/03/2024 5:05 AM EDT) Magnesium 1.7 1.7 - 2.3 mg/dL 11/03/2024 8:45 AM EDT [facility] Blood (Blood, Venous) 11/03/2024 5:05 AM EDT 11/03/2024 8:06 AM EDT Suze Jenkins MD LAB BLOOD ORDERABLES Final Resu lt Performing Organization Address [facility] de Phone Number [facility] [address] [place] [address] [facility] [address] [place] [address] * (ABNORMAL) MAGNESIUM (11/02/2024 6:40 AM EDT) Magnesium 1.5(L) 1.7 - 2.3 mg/dL 11/02/2024 8:37 AM EDT [facility] Blood (Blood, Venous) 11/02/2024 6:40 AM EDT 11/02/2024 7:55 AM EDT Barry Palmer APRN LAB BLOOD ORDERABLES Final Re sult Performing Organization Address [facility] Co de Phone Number [facility] [address] [place] [address] [facility] [address] [place] [address] * (ABNORMAL) CBC auto differential (11/02/2024 6:40 AM EDT) [facility] Signature WBC 4.05 3.70 - 11.00 k/uL 11/02/2024 8:43 AM [facility] RBC 2.77(L) 4.20 - 6.00 m/uL 11/02/2024 8:43 AM [facility] Hemoglobin 8.3(L) 13.0 - 17.0 g/dL 11/02/2024 8:43 AM [facility] Hematocrit 25.9(L) 39.0 - 51.0 % 11/02/2024 8:43 AM [facility] MCV 93.5 80.0 - 100.0 fL 11/02/2024 8:43 AM [facility] MCH 30.0 26.0 - 34.0 pg 11/02/2024 8:43 AM [facility] MCHC 32.0 30.5 - 36.0 g/dL 11/02/2024 8:43 AM [facility] RDW-CV 17.2(H) 11.5 - 15.0 % 11/02/2024 8:43 AM [facility] Platelets 570(H) 150 - 400 k/uL 11/02/2024 8:43 AM [facility] MPV 8.8(L) 9.0 - 12.7 fL 11/02/2024 8:43 AM [facility] nRBC 0.0 /100 WBC 11/02/2024 8:43 AM [facility] Absolute nucleated RBC count <0.01 <0.01 k/uL 11/02/2024 8:43 AM [facility] total neutrophils,% 91.0 % 11/02/2024 8:43 AM [facility] ANC 3.69 1.45 - 7.50 k/uL 11/02/2024 8:43 AM [facility] Lymphocytes Relative 6.0 % 11/02/2024 8:43 AM [facility] Lymphocytes Absolute 0.24(L) 1.00 - 4.00 k/uL 11/02/2024 8:43 AM [facility] MONO % 3.0 % 11/02/2024 8:43 AM [facility] Monocytes Absolute 0.12 <0.87 k/uL 11/02/2024 8:43 AM EDT [facility] Eosinophils Relative 0.0 % 11/02/2024 8:43 AM EDT [facility] Eosinophils Absolute 0.00 <0.46 k/uL 11/02/2024 8:43 AM EDT [facility] Basophils Relative 0.0 % 11/02/2024 8:43 AM EDT [facility] Basophils Absolute 0.00 <0.11 k/uL 11/02/2024 8:43 AM EDT [facility] Platelet Estimate Increased 11/02/2024 8:43 AM EDT [facility] RBC Morphology Reviewed: see results of individual morphologies 11/02/2024 8:43 AM EDT [facility] Anisocytosis Present 11/02/2024 8:43 AM EDT [facility] Ovalocytes Few 11/02/2024 8:43 AM EDT [facility] Differential Type Manual 11/02/2024 8:43 AM EDT [facility] Blood (Blood, Venous) 11/02/2024 6:40 AM EDT 11/02/2024 7:55 AM EDT us Barry Palmer PIE BAKER LAB BLOOD ORDERABLES Final Re sult [facility] [address] [place] [phone] [facility] [address] [place] [address] * (ABNORMAL) RENAL FUNCTION PANEL (11/02/2024 6:40 AM EDT) Albumin 2.6(L) 3.9 - 4.9 g/dL 11/02/2024 8:37 AM EDT [facility] Calcium 8.5 8.5 - 10.2 mg/dL 11/02/2024 8:37 AM EDT [facility] Phosphorus 4.2 2.7 - 4.8 mg/dL 11/02/2024 8:37 AM EDT [facility] Glucose 107(H) 74 - 99 mg/dL 11/02/2024 8:37 AM EDT [facility] Comment: The [place] Diabetes [employer] (ADA) provides guidance for cutoff values for fasting glucose and random glucose. The ADA defines fasting as no caloric intake for at least 8 hours. Fasting plasma glucose results between 100 to 125 mg/dL indicate increased risk for diabetes (prediabetes). Fasting plasma glucose results greater than or equal to 126 mg/dL meet the criteria for diagnosis of diabetes. In the absence of unequivocal hyperglycemia, results should be confirmed by repeat testing. In a patient with classic symptoms of hyperglycemia or hyperglycemic crisis, random plasma glucose results greater than or equal to 200 mg/dL meet the criteria for diagnosis of diabetes. Reference: Standards of Medical Care in Diabetes 2016, [place] [employer]. Diabetes Care. 2016.39(Suppl 1). BUN 7(L) 9 - 24 mg/dL 11/02/2024 8:37 AM EDT [facility] Creatinine, Ser 0.84 0.73 - 1.22 mg/dL 11/02/2024 8:37 AM [facility] Sodium 134(L) 136 - 144 mmol/L 11/02/2024 8:37 AM [facility] Potassium 4.7 3.7 - 5.1 mmol/L 11/02/2024 8:37 AM EDT [facility] Chloride 99 98 - 107 mmol/L 11/02/2024 8:37 AM EDT [facility] CO2 25 22 - 30 mmol/L 11/02/2024 8:37 AM [facility] Anion Gap 10 8 - 15 mmol/L 11/02/2024 8:37 AM EDT [facility] Estimated glomerular filtration rate 93 >=60 mL/min/1. 73m 11/02/2024 8:37 AM [facility] Comment: Estimated Glomerular Filtration Rate (eGFR) is calculated using the 2020 CKD-EPI creatinine equation. This equation utilizes serum creatinine, sex, and age as parameters. The creatinine assay has traceable calibration to isotope dilution- mass spectrometry. Refer to KDIGO guidelines for clinical interpretation. In patients with unstable renal function, e.g. those with acute kidney injury, the eGFR may not accurately reflect actual GFR. Blood (Blood, Venous) 11/02/2024 6:40 AM EDT 11/02/2024 7:55 AM EDT us Barry Palmer PIE BAKER LAB BLOOD ORDERABLES Final Re sult [facility] [address] [place] [address] [facility] [address] [place] [address] * XR CHEST 1 VWS (11/01/2024 2:39 PM EDT) Anatomical Region Laterality Modality Body Computed Radiogr aphy 11/01/2024 2:39 PM EDT Impressions 11/04/2024 8:30 AM EDT IMPRESSION: Interval decrease in the right pleural effusion and right basilar opacities. Possible mild pulmonary vascular congestion. Stripper Apprentice: SRINI Transcribe Date/Time: Nov 04 2024 8:27A Dictated by : CHARIS WHALEN MD This examination was interpreted and the report reviewed and electronically signed by: CHARIS WHALEN MD on Nov 04 2024 8:28AM EST Narrative 11/04/2024 8:30 AM EDT * * *Final Report* * * DATE OF EXAM: Nov 01 2024 2:39PM [id number] - XR CHEST 1V FRONTAL / PROCEDURE REASON: pleural effusion * * * * Physician Interpretation * * * * EXAMINATION: CHEST RADIOGRAPH (PORTABLE SINGLE VIEW AP) EXAM DATE/TIME: 11/01/2024 2:39 PM INDICATIONS: Shortness of breath. Pleural effusion MQ: XCPR_5 COMPARISON: 10/14/2024 RESULT: Lines, tubes, and devices: Interval placement of a right PICC line, with the distal tip in the lower SVC/upper atrium. Lungs and pleura: Interval decrease in opacification of the right lower lung zone, compatible with decrease in right pleural effusion and right basilar opacities. Small to moderate amount of airspace opacities still persists in the right lower lung zone; atelectasis/scarring versus infiltrates. Small amount of patchy opacities in the left lower lung zone that could be related to mild subsegmental atelectasis. A tiny left pleural effusion cannot be excluded. Prominence of interstitial markings raising the possibility of mild pulmonary vascular congestion. Cardiomediastinal silhouette: Stable cardiomediastinal silhouette. No acute osseous abnormality. Procedure Note System, Provider Not In - 11/04/2024 * * *Final Report* * * DATE OF EXAM: Nov 01 2024 2:39PM [id number] - XR CHEST 1V FRONTAL / PROCEDURE REASON: pleural effusion * * * * Physician Interpretation * * * * EXAMINATION: CHEST RADIOGRAPH (PORTABLE SINGLE VIEW AP) EXAM DATE/TIME: 11/01/2024 2:39 PM INDICATIONS: Shortness of breath. Pleural effusion MQ: XCPR_5 COMPARISON: 10/14/2024 RESULT: Lines, tubes, and devices: Interval placement of a right PICC line, with the distal tip in the lower SVC/upper atrium. Lungs and pleura: Interval decrease in opacification of the right lower lung zone, compatible with decrease in right pleural effusion and right basilar opacities. Small to moderate amount of airspace opacities still persists in the right lower lung zone; atelectasis/scarring versus infiltrates. Small amount of patchy opacities in the left lower lung zone that could be related to mild subsegmental atelectasis. A tiny left pleural effusion cannot be excluded. Prominence of interstitial markings raising the possibility of mild pulmonary vascular congestion. Cardiomediastinal silhouette: Stable cardiomediastinal silhouette. No acute osseous abnormality. IMPRESSION: IMPRESSION: Interval decrease in the right pleural effusion and right basilar opacities. Possible mild pulmonary vascular congestion. Stripper Apprentice: PSCB Transcribe Date/Time: Nov 04 2024 8:27A Dictated by : CHARIS WHALEN MD This examination was interpreted and the report reviewed and electronically signed by: CHARIS WHALEN MD on Nov 04 2024 8:28AM EST Chelsea Cunningham MD IMG DIAGNOSTIC IMAGING ORD ERABLES Final Result * (ABNORMAL) N-Terminal ProBNP (11/01/2024 5:01 AM EDT) NT PRO BNP 480(H) <125 pg/mL 11/01/2024 8:20 AM EDT [facility] Blood (Blood, Venous) 11/01/2024 5:01 AM EDT 11/01/2024 7:20 AM EDT us Chelsea Cunningham MD LAB BLOOD ORDERABLES Final Result [facility] [address] [place] [address] [facility] [address] [place] [phone] * Vitamin B12 (11/01/2024 5:01 AM EDT) Pathologist [facility] Vitamin B-12 878 232 - 1,245 pg/mL 11/01/2024 9:40 AM EDT [facility] Blood (Blood, Venous) 11/01/2024 5:01 AM EDT 11/01/2024 7:20 AM EDT us Chelsea Cunningham MD LAB BLOOD ORDERABLES Final Result Performing Organization Address City/[facility]/ZIP Co de Phone Number [facility] [address] [place] [address] [facility] [address] [place] [address] * Folate (11/01/2024 5:01 AM EDT) Pathologist [facility] Folate 9.2 >4.7 ng/mL 11/01/2024 9:40 AM EDT [facility] Blood (Blood, Venous) 11/01/2024 5:01 AM EDT 11/01/2024 7:20 AM EDT us Chelsea Cunningham MD LAB BLOOD ORDERABLES Final Result Performing Organization Address City/[facility]/ZIP Co de Phone Number [facility] [address] [place] [address] [facility] [address] [place] [address] * (ABNORMAL) Ferritin (11/01/2024 5:01 AM EDT) Pathologist [facility] Ferritin 5,826.0(H) 30.3 - 565.7 ng/mL 11/01/2024 10:23 AM EDT [facility] Blood (Blood, Venous) 11/01/2024 5:01 AM EDT 11/01/2024 7:20 AM EDT us Chelsea Cunningham MD LAB BLOOD ORDERABLES Final Result Performing Organization Address City/[facility] Co de Phone Number [facility] [address] [place] [address] [facility] [address] [place] [address] * (ABNORMAL) Iron and TIBC (11/01/2024 5:01 AM EDT) Pathologist [facility] Iron 28(L) 41 - 186 ug/dL 11/01/2024 9:26 AM EDT [facility] TIBC 74(L) 232 - 386 ug/dL 11/01/2024 9:26 AM EDT [facility] Transferrin saturation 37.8 20.0 - 55.0 % 11/01/2024 9:26 AM EDT [facility] Blood (Blood, Venous) 11/01/2024 5:01 AM EDT 11/01/2024 7:20 AM EDT Chelsea Cunningham MD LAB BLOOD ORDERABLES Final Result Performing Organization Address [facility] Co de Phone Number [facility] [address] [place] [address] [facility] [address] [place] [address] * (ABNORMAL) CBC auto differential (11/01/2024 5:01 AM EDT) [facility] WBC 4.38 3.70 - 11.00 k/uL 11/01/2024 8:21 AM EDT [facility] RBC 2.75(L) 4.20 - 6.00 m/uL 11/01/2024 8:21 AM EDT [facility] Hemoglobin 8.2(L) 13.0 - 17.0 g/dL 11/01/2024 8:21 AM EDT [facility] Hematocrit 26.3(L) 39.0 - 51.0 % 11/01/2024 8:21 AM EDT [facility] MCV 95.6 80.0 - 100.0 fL 11/01/2024 8:21 AM EDT [facility] MCH 29.8 26.0 - 34.0 pg 11/01/2024 8:21 AM EDT [facility] MCHC 31.2 30.5 - 36.0 g/dL 11/01/2024 8:[facility] RDW-CV 17.6(H) 11.5 - 15.0 % 11/01/2024 8:21 AM [facility] Platelets 565(H) 150 - 400 k/uL 11/01/2024 8:21 AM [facility] MPV 9.0 9.0 - 12.7 fL 11/01/2024 8:21 AM [facility] nRBC 0.0 /100 WBC 11/01/2024 8:21 AM [facility] Absolute nucleated RBC count <0.01 <0.01 k/uL 11/01/2024 8:21 AM [facility] total neutrophils,% 89.0 % 11/01/2024 8:21 AM [facility] ANC 3.90 1.45 - 7.50 k/uL 11/01/2024 8:21 AM [facility] Lymphocytes Relative 5.0 % 11/01/2024 8:21 AM [facility] Lymphocytes Absolute 0.22(L) 1.00 - 4.00 k/uL 11/01/2024 8:21 AM [facility] MONO % 2.0 % 11/01/2024 8:21 AM [facility] Monocytes Absolute 0.09 <0.87 k/uL 11/01/2024 8:21 AM [facility] Eosinophils Relative 1.0 % 11/01/2024 8:21 AM [facility] Eosinophils Absolute 0.04 <0.46 k/uL 11/01/2024 8:21 AM [facility] Basophils Relative 2.0 % 11/01/2024 8:21 AM [facility] Basophils Absolute 0.09 <0.11 k/uL 11/01/2024 8:21 AM [facility] Metamyelocytes Relative percent 1.0 % 11/01/2024 8[facility] WBC Left Shift Present 11/01/2024 8:21 AM [facility] Platelet Estimate Increased 025 8:21 AM [facility] RBC Morphology Reviewed: see results of individual morphologies 11/01/2024 8:[facility] Anisocytosis Present 11/01/2024 8:21 AM EDT [facility] Ovalocytes Few 11/01/2024 8:21 AM EDT [facility] RBC Fragments Few(A) None Seen 11/01/2024 8:21 AM EDT [facility] Differential Type Manual 025 8:21 AM EDT [facility] Blood (Blood, Venous) 11/01/2024 5:01 AM EDT 11/01/2024 7:20 AM EDT Barry Palmer PIE BAKER LAB BLOOD ORDERABLES Final Re sult [facility] [address] [place] [address] [facility] [address] [place] [address] * (ABNORMAL) RENAL FUNCTION PANEL (11/01/2024 5:01 AM EDT) Albumin 2.6(L) 3.9 - 4.9 g/dL 11/01/2024 8:[facility] Calcium 8.5 8.5 - 10.2 mg/dL 11/01/2024 8:20 [facility] Phosphorus 4.2 2.7 - 4.8 mg/dL 11/01/2024 8:20 AM EDT [facility] Glucose 101(H) 74 - 99 mg/dL 11/01/2024 8:20 AM [facility] Comment: The [place] [employer] (ADA) provides guidance for cutoff values for fasting glucose and random glucose. The ADA defines fasting as no caloric intake for at least 8 hours. Fasting plasma glucose results between 100 to 125 mg/dL indicate increased risk for diabetes (prediabetes). Fasting plasma glucose results greater than or equal to 126 mg/dL meet the criteria for diagnosis of diabetes. In the absence of unequivocal hyperglycemia, results should be confirmed by repeat testing. In a patient with classic symptoms of hyperglycemia or hyperglycemic crisis, random plasma glucose results greater than or equal to 200 mg/dL meet the criteria for diagnosis of diabetes. Reference: Standards of Medical Care in Diabetes 2016, [place] [employer]. Diabetes Care. 2016.39(Suppl 1). BUN 7(L) 9 - 24 mg/dL 11/01/2024 8:20 AM EDT [facility] Creatinine, Ser 0.88 0.73 - 1.22 mg/dL 11/01/2024 8:[facility] Sodium 137 136 - 144 mmol/L 11/01/2024 8:20 AM EDT [facility] Potassium 5.0 3.7 - 5.1 mmol/L 11/01/2024 8:[facility] Chloride 100 98 - 107 mmol/L 11/01/2024 8:20 [facility] CO2 26 22 - 30 mmol/L 11/01/2024 8:20 AM [facility] Anion Gap 11 8 - 15 mmol/L 11/01/2024 8:20 AM [facility] Estimated glomerular filtration rate 92 >=60 mL/min/1. 73m 11/01/2024 8:20 AM [facility] Comment: Estimated Glomerular Filtration Rate (eGFR) is calculated using the 2020 CKD-EPI creatinine equation. This equation utilizes serum creatinine, sex, and age as parameters. The creatinine assay has traceable calibration to isotope dilution- mass spectrometry. Refer to KDIGO guidelines for clinical interpretation. In patients with unstable renal function, e.g. those with acute kidney injury, the eGFR may not accurately reflect actual GFR. Blood (Blood, Venous) 11/01/2024 5:01 AM EDT 11/01/2024 7:20 AM EDT us Barry Palmer APRN LAB BLOOD ORDERABLES Final Re sult [facility] [address] [place] [address] [facility] [address] [place] [address] * MAGNESIUM (11/01/2024 5:01 AM EDT) Magnesium 1.8 1.7 - 2.3 mg/dL 11/01/2024 8:20 AM EDT [facility] Blood (Blood, Venous) 11/01/2024 5:01 AM EDT 11/01/2024 7:20 AM EDT Suze Jenkins MD LAB BLOOD ORDERABLES Final Resu lt Performing Organization Address [facility] de Phone Number [facility] [address] [place] [address] [facility] [address] [place] [phone] * (ABNORMAL) N-Terminal ProBNP (10/31/2024 4:52 AM EDT) NT PRO BNP 462(H) <125 pg/mL 10/31/2024 10:52 AM EDT [facility] Blood (Blood, Venous) 10/31/2024 4:52 AM EDT 10/31/2024 9:02 AM EDT David Cruz DO LAB BLOOD ORDERABLES Final R esult Performing Organization Address [facility] de Phone Number [facility] [employer] [facility] [employer] [address] [place] [address] [facility] [address] [place] [id number] * PHOSPHORUS (10/31/2024 4:52 AM EDT) Pathologist [facility] Phosphorus 4.1 2.7 - 4.8 mg/dL 10/31/2024 10:46 AM EDT [facility] Blood (Blood, Venous) 10/31/2024 4:52 AM EDT 10/31/2024 9:02 AM EDT David Cruz DO LAB BLOOD ORDERABLES Final R esult Performing Organization Address [facility] de Phone Number [facility] [employer] [address] [place] [address] [facility] [address] [place] [phone] * (ABNORMAL) Tacrolimus level (10/31/2024 4:52 AM EDT) Pathologist [facility] Tacrolimus Lvl 3.5(L) 5.0 - 20.0 ng/mL 10/31/2024 7:19 PM EDT [facility] Comment: Individualized target levels for a given patient will depend on many factors (including the type of organ transplant, time since transplantation, concurrent medications, and other clinical factors), and should be assessed by those health care providers experienced in the management of immunosuppression. Reference ranges and high/low indicator flags are provided as general guidelines only. The treating physician must determine appropriate target levels/dosing based on the specific clinical situation. Test performed by chemiluminescent immunoassay using [employer] i. Blood (Blood, Venous) 10/31/2024 4:52 AM EDT 10/31/2024 4:20 PM EDT [facility] Hughes[facility] DO LAB BLOOD ORDERABLES Final R esult Performing Organization Address [facility] Co de Phone Number [place] [address] [place] [address] [facility] [address] [place] [phone] * (ABNORMAL) C-REACTIVE PROTEIN (10/31/2024 4:52 AM EDT) CRP 23.3(H) <0.9 mg/dL 10/31/2024 11:16 AM EDT [facility] Blood (Blood, Venous) 10/31/2024 4:52 AM EDT 10/31/2024 9:02 AM EDT [facility] DO LAB BLOOD ORDERABLES Final R esult Performing Organization Address [facility] Co de Phone Number [facility] [address] [place] [address] [facility] [address] [place] [phone] * (ABNORMAL) GAMMA GT (10/31/2024 4:52 AM EDT) GGT 111(H) 10 - 70 U/L 10/31/2024 3:07 PM EDT [facility] Blood (Blood, Venous) 10/31/2024 4:52 AM EDT 10/31/2024 1:07 PM EDT [facility]LOOD ORDERABLES Final R esult [facility] [address] [place] [address] [facility] [address] [facility] [address] [place] [address] * (ABNORMAL) MAGNESIUM (10/31/2024 4:52 AM EDT) [facility] Magnesium 1.6(L) 1.7 - 2.3 mg/dL 10/31/2024 11:16 AM EDT [facility] Blood (Blood, Venous) 10/31/2024 4:52 AM EDT 10/31/2024 9:02 AM EDT David Cruz DO LAB BLOOD ORDERABLES Final R esult [facility] [address] [place] [address] [facility] [address] [place] [address] * (ABNORMAL) COMPREHENSIVE METABOLIC PANEL (10/31/2024 4:52 AM EDT) [facility] Total Protein 5.0(L) 6.3 - 8.0 g/dL 10/31/2024 11:16 AM EDT [facility] Albumin 2.4(L) 3.9 - 4.9 g/dL 10/31/2024 11:16 AM EDT [facility] Calcium 8.1(L) 8.5 - 10.2 mg/dL 10/31/2024 11:16 AM EDT [facility] Bilirubin, Total 0.3 0.2 - 1.3 mg/dL 10/31/2024 11:16 AM EDT [facility] Alkaline phosphatase 158(H) 38 - 113 U/L 10/31/2024 11:16 AM EDT [facility] AST 16 14 - 40 U/L 10/31/2024 11:16 AM EDT [facility] ALT (SGPT) 8(L) 10 - 54 U/L 10/31/2024 11:16 AM EDT [facility] Glucose 82 74 - 99 mg/dL 10/31/2024 11:16 AM EDT [facility] Comment: The [place] Diabetes [employer] (ADA) provides guidance for cutoff values for fasting glucose and random glucose. The ADA defines fasting as no caloric intake for at least 8 hours. Fasting plasma glucose results between 100 to 125 mg/dL indicate increased risk for diabetes (prediabetes). Fasting plasma glucose results greater than or equal to 126 mg/dL meet the criteria for diagnosis of diabetes. In the absence of unequivocal hyperglycemia, results should be confirmed by repeat testing. In a patient with classic symptoms of hyperglycemia or hyperglycemic crisis, random plasma glucose results greater than or equal to 200 mg/dL meet the criteria for diagnosis of diabetes. Reference: Standards of Medical Care in Diabetes 2016, [place] [employer]. Diabetes Care. 2016.39(Suppl 1). BUN 8(L) 9 - 24 mg/dL 10/31/2024 11:16 AM [facility] Creatinine, Ser 0.82 0.73 - 1.22 mg/dL 10/31/2024 11:16 AM [facility] Sodium 136 136 - 144 mmol/L 10/31/2024 11:16 AM [facility] Potassium 5.1 3.7 - 5.1 mmol/L 10/31/2024 11:16 AM [facility] Chloride 102 98 - 107 mmol/L 10/31/2024 11:16 AM [facility] CO2 22 22 - 30 mmol/L 10/31/2024 11:16 AM [facility] Anion Gap 12 8 - 15 mmol/L 10/31/2024 11:16 AM [facility] Estimated glomerular filtration rate 94 >=60 mL/min/1. 73m 10/31/2024 11:16 AM [facility] Comment: Estimated Glomerular Filtration Rate (eGFR) is calculated using the 2020 CKD-EPI creatinine equation. This equation utilizes serum creatinine, sex, and age as parameters. The creatinine assay has traceable calibration to isotope dilution- mass spectrometry. Refer to KDIGO guidelines for clinical interpretation. In patients with unstable renal function, e.g. those with acute kidney injury, the eGFR may not accurately reflect actual GFR. Blood (Blood, Venous) 10/31/2024 4:52 AM EDT 10/31/2024 9:02 AM EDT David Cruz DO LAB BLOOD ORDERABLES Final R esult [facility] [address] [place] [address] [facility] [address] [place] [address] * (ABNORMAL) CBC AUTO DIFFERENTIAL (10/31/2024 4:52 AM EDT) WBC 5.03 3.70 - 11.00 k/uL 10/31/2024 10:51 AM EDT [facility] RBC 2.61(L) 4.20 - 6.00 m/uL 10/31/2024 10:51 AM EDT [facility] Hemoglobin 7.9(L) 13.0 - 17.0 g/dL 10/31/2024 10:51 AM EDT [facility] Hematocrit 25.1(L) 39.0 - 51.0 % 10/31/2024 10:51 AM EDT [facility] MCV 96.2 80.0 - 100.0 fL 10/31/2024 10:51 AM EDT [facility] MCH 30.3 26.0 - 34.0 pg 10/31/2024 10:51 AM EDT [facility] MCHC 31.5 30.5 - 36.0 g/dL 10/31/2024 10:51 AM EDT [facility] RDW-CV 17.3(H) 11.5 - 15.0 % 10/31/2024 10:51 AM EDT [facility] Platelets 526(H) 150 - 400 k/uL 10/31/2024 10:51 AM EDT [facility] MPV 9.3 9.0 - 12.7 fL 10/31/2024 10:51 AM EDT [facility] nRBC 0.0 /100 WBC 10/31/2024 10:51 AM EDT [facility] Absolute nucleated RBC count <0.01 <0.01 k/uL 10/31/2024 10:51 AM EDT [facility] total neutrophils,% 94.0 % 10/31/2024 10:51 AM EDT [facility] ANC 4.73 1.45 - 7.50 k/uL 10/31/2024 10:51 AM EDT [facility] Lymphocytes Relative 4.0 % 10/31/2024 10:51 AM EDT [facility] Lymphocytes Absolute 0.20(L) 1.00 - 4.00 k/uL 10/31/2024 10:51 AM EDT [facility] MONO % 1.0 % 10/31/2024 10:51 AM EDT [facility] Monocytes Absolute 0.05 <0.87 k/uL 10/31/2024 10:51 AM EDT [facility] Eosinophils Relative 1.0 % 10/31/2024 10:51 AM EDT [facility] Eosinophils Absolute 0.05 <0.46 k/uL 10/31/2024 10:51 AM EDT [facility] Basophils Relative 0.0 % 10/31/2024 10:51 AM EDT [facility] Basophils Absolute 0.00 <0.11 k/uL 10/31/2024 10:51 AM EDT [facility] Platelet Estimate Increased 10/31/2024 10:51 AM EDT [facility] RBC Morphology Reviewed: see results of individual morphologies 10/31/2024 10:51 AM EDT [facility] Anisocytosis Present 10/31/2024 10:51 AM EDT [facility] Ovalocytes Few 10/31/2024 10:51 AM EDT [facility] Differential Type Manual 10/31/2024 10:51 AM EDT [facility] Blood (Blood, Venous) 10/31/2024 4:52 AM EDT 10/31/2024 9:02 AM EDT David Cruz DO LAB BLOOD ORDERABLES Final R esult [facility] [address] [place] [address] [facility] [address] [place] [address] documented in this encounter 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 Admitting Diagnoses Diagnosis 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 Administered Medications Inactive Administered Medications - up to 3 most recent administrations Medication Order MAR Action Action Date Dose Rate Site acetaminophen (TYLENOL) 160 MG/5ML solution 500 mg 500 mg, Oral, Every 6 hours PRN, Starting on Mon10/30/24 at 2006, Until Mon11/15/24 at 1552, moderate pain, mild pain Given 11/14/2024 1:02 PM EDT 500 mg Given 11/10/2024 1:01 PM EDT 500 mg Given 11/08/2024 10:37 AM EDT 500 mg albumin human 25 % 25 g 25 g, Intravenous, at 100 mL/hr, Administer over 60 Minutes, Once, 1 dose, On Mon11/06/24 at 1600, Indication of use: Other, Indication of use: Specify, Indication of use: hypotension of dysautonomia Given 11/06/2024 4:37 PM EDT 25 g 100 mL/hr albumin human 25 % 25 g 25 g, Intravenous, at 100 mL/hr, Administer over 60 Minutes, Every 6 hours, 2 doses, First dose on Mon11/07/24 at 1630, Last dose on Mon11/08/24 at 0000, Indication of use: Other, Indication of use: Specify, Indication of use: orthostatic hypotension and renate Given 11/08/2024 12:05 AM EDT 25 g 100 mL/hr Given 11/07/2024 5:18 PM EDT 25 g 100 mL/hr alum & mag hydroxide-simeth enteral suspension 15 mL 15 mL, Oral, Every 4 hours PRN, Starting on Mon10/30/24 at 2006, Until Mon11/15/24 at 1552, indigestion, heartburn Given 11/02/2024 5:20 AM EDT 15 mL aspirin EC tablet 81 mg 81 mg, Oral, Daily, First dose on Mon10/31/24 at 0900, Until Discontinued, DO NOT CRUSH, CUT, OR CHEW., Indications: Acute Myocardial InfarctionIndications:Acute Myocardial Infarction Given 11/15/2024 9:09 AM EDT 81 mg Given 11/14/2024 8:59 AM EDT 81 mg Given 11/13/2024 8:02 AM EDT 81 mg Buprenorphine (BUTRANS) patch 10 mcg 10 mcg, Transdermal, Administer over 7 Days, Every 7 days, First dose (after last modification) on Mon11/12/24 at 1200, Until Discontinued, Medication loaded in BI [facility], Indications: Chronic PainIndications:Chronic Pain Medication Applied 11/12/2024 11:57 AM EDT 10 mcg Left Arm Buprenorphine (BUTRANS) patch 5 mcg 5 mcg, Transdermal, Administer over 7 Days, Every 7 days, First dose on Mon11/05/24 at 1200, Until Discontinued, Medication loaded in [facility], Indications: Chronic PainIndications:Chronic Pain Medication Applied 11/05/2024 1:22 PM EDT 5 mcg Right Arm Check Patch Placement Transdermal, 2 times daily - during shift change, First dose on Mon11/05/24 at 1830, Until Discontinued Check Patch Placement 11/12/2024 7:03 AM EDT Right Arm Check Patch Placement 11/11/2024 7:20 PM EDT Right Arm Check Patch Placement 11/11/2024 7:20 AM EDT Right Arm Check Patch Placement Transdermal, 2 times daily - during shift change, First dose (after last modification) on Mon11/12/24 at 1830, Until Discontinued Check Patch Placement 11/15/2024 7:17 AM EDT Left Arm Check Patch Placement 11/14/2024 7:29 PM EDT Left Arm Check Patch Placement 11/14/2024 7:01 AM EDT Left Arm ciprofloxacin (CIPRO) tablet 500 mg 500 mg, Oral, 2 times daily (2 times per day), 10 doses, First dose on Mon11/14/24 at 1800, Last dose on Mon11/19/24 at 0900, No food, tube feeding or drink except water should be given 1 hour before or 1 hour after administration., Indications: Prophylaxis s/p procedureIndications:Prophylaxis s/p procedure Given 11/15/2024 9:10 AM EDT 500 mg Given 11/14/2024 5:31 PM EDT 500 mg DAPTOmycin (CUBICIN) 700 mg in sodium chloride 0.9 % 114 mL IVPB 700 mg, Intravenous, at 228 mL/hr, Administer over 30 Minutes, Every 24 hours (Interval), 13 doses, First dose on Mon10/31/24 at 1500, Last dose on Mon11/12/24 at 1330, REFRIGERATE, Indications: Biliary stent infectionIndications:Biliary stent infection Given 11/12/2024 12:31 PM EDT 700 mg 228 mL/hr Given 11/11/2024 2:00 PM EDT 700 mg 228 mL/hr Given 11/10/2024 1:36 PM EDT 700 mg 228 mL/hr epoetin omar (PROCRIT) injection 15,000 Units 15,000 Units, Subcutaneous, 3 times weekly (Once per day on Monday), First dose on Mon11/01/24 at 0900, Until Discontinued, Indication: Other (specify), Specify: anemia of chronic illnesses, Pharmacy Erythropoiesis-Stimulating Agent (MARGO) Dosing Policy (Epoetin): [email or web address]://toby.[employer]alsnov[facility] health rehabilitation hospitalScan Man Auto Diagnosticsflorence community healthcareRAMP Holdings/o/action/doc/kyle radha/docid/fc_dfc/[email or web address] Given 11/15/2024 9:17 AM EDT 15,000 Units Abdominal Tissue Given 11/13/2024 8:04 AM EDT 15,000 Units Right Arm Given 11/11/2024 8:32 AM EDT 15,000 Units Abdominal Tissue famotidine (PEPCID) tablet 20 mg 20 mg, Oral, 2 times daily (2 times per day), First dose on Mon10/30/24 at 2100, Until Discontinued Given 11/15/2024 9:10 AM EDT 20 mg Given 11/14/2024 8:10 PM EDT 20 mg Given 11/14/2024 9:00 AM EDT 20 mg fludrocortisone (FLORINEF) tablet 0.2 mg 0.2 mg (200 mcg), Oral, Once, 1 dose, On Mon11/14/24 at 1800 Given 11/14/2024 5:45 PM EDT 0.2 mg furosemide (LASIX) tablet 40 mg 40 mg, Oral, Daily, First dose on Mon10/31/24 at 0900, Until Discontinued Given 11/03/2024 8:45 AM EDT 40 mg Given 11/02/2024 8:25 AM EDT 40 mg Given 11/01/2024 7:48 AM EDT 40 mg furosemide (LASIX) tablet 40 mg 40 mg, Oral, 2 times daily- 09/28 (2 times per day), First dose (after last modification) on Mon11/03/24 at 1545, Until Discontinued, On hold since Mon11/07/2024 at 1515 until manually unheld Given 11/07/2024 2:54 PM EDT 40 mg Given 11/07/2024 6:10 AM EDT 40 mg Given 11/06/2024 1:26 PM EDT 40 mg heparin (porcine) injection 5,000 Units 5,000 Units, Subcutaneous, Every 12 hours, First dose on Mon10/30/24 at 2100, Until Discontinued, HIGH RISK MEDICATION, Indications: Deep Vein Thrombosis ProphylaxisIndications:Deep Vein Thrombosis Prophylaxis Given 11/15/2024 9:16 AM EDT 5,000 Units Abdominal Tissue Given 11/14/2024 8:10 PM EDT 5,000 Units A bdominal Tissue Given 11/14/2024 9:00 AM EDT 5,000 Units A bdominal Tissue linaclotide (LINZESS) capsule 145 mcg 145 mcg, Oral, 2 times daily (2 times per day), First dose on Mon11/08/24 at 1130, Until Discontinued Given 11/12/2024 7:30 AM EDT 145 mcg Given 11/11/2024 8:20 PM EDT 145 mcg Given 11/11/2024 8:27 AM EDT 145 mcg linaclotide (LINZESS) capsule 145 mcg 145 mcg, Oral, Daily, First dose (after last modification) on Mon11/13/24 at 0900, Until Discontinued Given 11/15/2024 9:10 AM EDT 145 mcg Given 11/14/2024 8:59 AM EDT 145 mcg Given 11/13/2024 8:02 AM EDT 145 mcg magnesium oxide tablet 400 mg 400 mg, Oral, 2 times daily (2 times per day), First dose on Mon10/30/24 at 2100, Until Discontinued Given 10/31/2024 8:13 AM EDT 400 mg Given 10/30/2024 10:17 PM EDT 400 mg magnesium oxide tablet 800 mg 800 mg, Oral, 2 times daily (2 times per day), First dose (after last modification) on Mon10/31/24 at 2100, Until Discontinued Given 11/02/2024 8:26 AM EDT 800 mg Given 11/01/2024 8:26 PM EDT 800 mg Given 11/01/2024 7:49 AM EDT 800 mg magnesium oxide tablet 800 mg 800 mg, Oral, 3 times daily (3 times per day), First dose (after last modification) on Mon11/02/24 at 1500, Until Discontinued Given 11/15/2024 9:08 AM EDT 800 mg Given 11/14/2024 8:09 PM EDT 800 mg Given 11/14/2024 5:26 PM EDT 800 mg magnesium sulfate in D5W infusion 1 g 100 mL 1 g, Intravenous, at 100 mL/hr, Administer over 1 Hours, Every 1 hour, 2 doses, First dose on Mon10/31/24 at 1500, Last dose on Mon10/31/24 at 1600 Given 10/31/2024 2:17 PM EDT 1 g 100 mL/hr Given 10/31/2024 1:13 PM EDT 1 g 100 mL/hr magnesium sulfate in D5W infusion 1 g 100 mL 1 g, Intravenous, at 100 mL/hr, Administer over 1 Hours, Every 1 hour, 2 doses, First dose on Mon11/02/24 at 1200, Last dose on Mon11/02/24 at 1300 Given 11/02/2024 12:48 PM EDT 1 g 100 mL/hr Given 11/02/2024 11:40 AM EDT 1 g 100 mL/hr melatonin tablet 3 mg 3 mg, Oral, Nightly, First dose on Mon11/08/24 at 2100, Until Discontinued Given 11/14/2024 8:10 PM EDT 3 mg Given 11/13/2024 8:03 PM EDT 3 mg Given 11/12/2024 8:38 PM EDT 3 mg methocarbamol (ROBAXIN) tablet 750 mg 750 mg, Oral, 3 times daily PRN, Starting on Mon10/30/24 at 2006, Until Mon11/15/24 at 1552, muscle spasms Given 11/15/2024 9:16 AM EDT 750 mg Given 11/14/2024 8:11 PM EDT 750 mg Given 11/14/2024 10:33 AM EDT 750 mg metOLazone (ZAROXOLYN) tablet 10 mg 10 mg, Oral, Daily, 2 doses, First dose on Mon11/03/24 at 1900, Last dose on Mon11/04/24 at 0900 Given 11/04/2024 11:10 AM EDT 10 mg Given 11/03/2024 6:29 PM EDT 10 mg midodrine (PROAMATINE) tablet 10 mg 10 mg, Oral, 3 times daily- 12(Noon)/18 (3 times per day), First dose on Mon11/06/24 at 1800, Until Discontinued Given 11/15/2024 12:18 PM EDT 10 mg Given 11/15/2024 5:41 AM EDT 10 mg Given 11/14/2024 5:26 PM EDT 10 mg mirtazapine (REMERON) tablet 7.5 mg 7.5 mg, Oral, Nightly, First dose on Mon10/30/24 at 2100, Until Discontinued Given 11/14/2024 8:10 PM EDT 7.5 mg Given 11/13/2024 8:04 PM EDT 7.5 mg Given 11/12/2024 8:38 PM EDT 7.5 mg multivitamin w/ minerals (THERA M PLUS) tablet/capsule 1 tablet 1 tablet, Oral, Daily, First dose on Mon11/02/24 at 0900, Until Discontinued Given 11/15/2024 9:16 AM EDT 1 tablet Given 11/14/2024 9:01 AM EDT 1 tablet Given 11/13/2024 8:03 AM EDT 1 tablet ondansetron ODT (ZOFRAN-ODT) disintegrating tablet 4 mg 4 mg, Oral, Every 6 hours PRN, Starting on Mon11/02/24 at 1008, Until Mon11/15/24 at 1552, nausea, vomiting Given 11/09/2024 1:35 PM EDT 4 mg Given 11/04/2024 11:37 AM EDT 4 mg Given 11/03/2024 12:41 PM EDT 4 mg oxyCODONE (ROXICODONE) immediate release tablet 10 mg 10 mg, Oral, Every 6 hours PRN, Starting on Mon10/31/24 at 1300, Until Mon11/15/24 at 1552, severe pain, Indications: Acute PainIndications:Acute Pain Given 11/15/2024 9:16 AM EDT 10 mg Given 11/14/2024 8:08 PM EDT 10 mg Given 11/14/2024 10:33 AM EDT 10 mg oxyCODONE (ROXICODONE) immediate release tablet 5 mg 5 mg, Oral, Every 6 hours PRN, Starting on Mon10/30/24 at 2006, Until Mon10/31/24 at 1301, severe pain, Indications: Acute PainIndications:Acute Pain Given 10/31/2024 9:04 AM EDT 5 mg Given 10/30/2024 8:15 PM EDT 5 mg pantoprazole (PROTONIX) EC/DR tablet 40 mg 40 mg, Oral, 2 times daily before meals, First dose on Mon10/31/24 at 1630, Until Discontinued, Do not crush, chew, or break the tablet. Swallow it whole. Given 11/15/2024 9:10 AM EDT 40 mg Given 11/14/2024 5:27 PM EDT 40 mg Given 11/14/2024 9:00 AM EDT 40 mg senna (SENOKOT) tablet 2 tablet 2 tablet, Oral, Nightly, First dose on Mon10/30/24 at 2100, Until Discontinued Given 11/07/2024 10:07 PM EDT 2 tablets Given 11/06/2024 9:34 PM EDT 2 tablets Given 11/03/2024 9:45 PM EDT 2 tablets simethicone (MYLICON) chewable tablet 80 mg 80 mg, Oral, 4 times daily, First dose on Mon11/07/24 at 1700, Until Discontinued Given 11/15/2024 12:18 PM EDT 80 mg Given 11/15/2024 9:10 AM EDT 80 mg Given 11/14/2024 8:11 PM EDT 80 mg sodium chloride 0.9 % infusion 500 mL 500 mL, Intravenous, at 125 mL/hr, Administer over 240 Minutes, Once, 1 dose, On Mon11/08/24 at 1200 Rate/Dose Verify 11/08/2024 4:30 PM EDT 125 mL/hr New Bag 11/08/2024 2:31 PM EDT 500 mL 125 mL/hr sodium zirconium cyclosilicate (LOKELMA) packet 10 g 10 g, Oral, 3 times daily (3 times per day), 2 doses, First dose on Mon11/14/24 at 1700, Last dose on Mon11/14/24 at 2100, Mix contents of 1 packet with a minimum of 45 mL of water. Stir well and administer immediately; if powder remains in the glass, add water, stir, and administer immediately; repeat until no powder remains. Administer other oral medications >=2 hours before or 2 hours after dose. Drug interaction: tacrolimus + Sodium zirconium cyclosilicate : decreasees serum concentration of tacrolimus. Space apart 2 hours Given 11/14/2024 8:08 PM EDT 10 g Given 11/14/2024 4:25 PM EDT 10 g sodium zirconium cyclosilicate (LOKELMA) packet 10 g 10 g, Oral, Once, 1 dose, On Mon11/14/24 at 1245, Mix contents of 1 packet with a minimum of 45 mL of water. Stir well and administer immediately; if powder remains in the glass, add water, stir, and administer immediately; repeat until no powder remains. Administer other oral medications >=2 hours before or 2 hours after dose. Given 11/14/2024 1:30 PM EDT 10 g sodium zirconium cyclosilicate (LOKELMA) packet 10 g 10 g, Oral, Once, 1 dose, On Mon11/15/24 at 1130, Mix contents of 1 packet with a minimum of 45 mL of water. Stir well and administer immediately; if powder remains in the glass, add water, stir, and administer immediately; repeat until no powder remains. Administer other oral medications >=2 hours before or 2 hours after dose. Given 11/15/2024 12:17 PM EDT 10 g sulfamethoxazole-trimethoprim (BACTRIM) 800-160 MG per tablet double-strength 1 tablet 1 tablet, Oral, 3 times weekly (Once per day on Monday), First dose on Mon11/01/24 at 0900, Until Discontinued, Indications: prophIndications:proph Given 11/08/2024 8:04 AM EDT 1 tablet Given 11/06/2024 8:01 AM EDT 1 tablet Given 11/04/2024 11:08 AM EDT 1 tablet sulfamethoxazole-trimethoprim (BACTRIM) 800-160 MG per tablet double-strength 1 tablet 1 tablet, Oral, 3 times weekly (Once per day on Monday), First dose (after last modification) on Mon11/13/24 at 0900, Until Discontinued, Indications: prophylaxisIndications:prophylaxis Given 11/13/2024 8:04 AM EDT 1 tablet sulfamethoxazole-trimethoprim (BACTRIM) 800-160 MG per tablet double-strength 1 tablet 1 tablet, Oral, 3 times weekly (Once per day on Monday), First dose (after last modification) on Mon11/18/24 at 0900, Until Discontinued, Indications: prophylaxisIndications:prophylaxis tacrolimus (PROGRAF) capsule 5 mg 5 mg, Oral, 2 times daily (2 times per day), First dose on Mon10/31/24 at 0600, Until Discontinued, *Hazardous Drug* Dispose of any unused medication in appropriate waste bin. Wear a single pair of gloves when handling intact capsules. If opening capsules, wear double gloves, gown and mask. *Hazardous Drug* Dispose of any unused medication in appropriate waste bin. Wear a single pair of gloves when handling intact capsules. If opening capsules, wear double gloves, gown and mask. Given 11/01/2024 6:18 AM EDT 5 mg Given 10/31/2024 5:18 PM EDT 5 mg Given 10/31/2024 5:53 AM EDT 5 mg tacrolimus (PROGRAF) capsule 5 mg 5 mg, Oral, 2 times daily (2 times per day), First dose (after last modification) on Mon11/05/24 at 1800, Until Discontinued, *Hazardous Drug* Dispose of any unused medication in appropriate waste bin. Wear a single pair of gloves when handling intact capsules. If opening capsules, wear double gloves, gown and mask. *Hazardous Drug* Dispose of any unused medication in appropriate waste bin. Wear a single pair of gloves when handling intact capsules. If opening capsules, wear double gloves, gown and mask. Given 11/15/2024 5:41 AM EDT 5 mg Given 11/14/2024 5:26 PM EDT 5 mg Given 11/14/2024 5:14 AM EDT 5 mg tacrolimus (PROGRAF) capsule 6 mg 6 mg, Oral, 2 times daily (2 times per day), First dose (after last modification) on Mon11/01/24 at 1800, Until Discontinued, *Hazardous Drug* Dispose of any unused medication in appropriate waste bin. Wear a single pair of gloves when handling intact capsules. If opening capsules, wear double gloves, gown and mask. *Hazardous Drug* Dispose of any unused medication in appropriate waste bin. Wear a single pair of gloves when handling intact capsules. If opening capsules, wear double gloves, gown and mask. Given 11/05/2024 5:27 AM EDT 6 mg Given 11/04/2024 6:29 PM EDT 6 mg Given 11/04/2024 6:50 AM EDT 6 mg tamsulosin (FLOMAX) 24 hr capsule 0.4 mg 0.4 mg, Oral, Nightly, First dose on Mon10/31/24 at 2100, Until Discontinued, Swallow whole. Do not crush, open, chew, or split capsule. Given 11/14/2024 8:10 PM EDT 0.4 mg Given 11/13/2024 8:03 PM EDT 0.4 mg Given 11/12/2024 8:37 PM EDT 0.4 mg traZODone (DESYREL) tablet 50 mg 50 mg, Oral, Nightly, First dose on Mon10/31/24 at 2100, Until Discontinued Given 11/07/2024 10:06 PM EDT 50 mg Given 11/06/2024 9:33 PM EDT 50 mg Given 11/05/2024 8:04 PM EDT 50 mg traZODone (DESYREL) tablet 50 mg 50 mg, Oral, Nightly, First dose (after last modification) on Mon11/08/24 at 2100, Until Discontinued Given 11/14/2024 8:10 PM EDT 50 mg Given 11/13/2024 8:03 PM EDT 50 mg Given 11/12/2024 8:37 PM EDT 50 mg ursodiol (ACTIGALL) capsule 300 mg 300 mg, Oral, 3 times daily (3 times per day), First dose on Mon10/30/24 at 2100, Until Discontinued Given 11/15/2024 9:09 AM EDT 300 mg Given 11/14/2024 8:09 PM EDT 300 mg Given 11/14/2024 5:27 PM EDT 300 mg valGANciclovir (VALCYTE) tablet 900 mg 900 mg, Oral, 2 times daily (2 times per day), First dose on Mon10/30/24 at 2100, Until Discontinued, *Hazardous Drug* Dispose of any unused medication in appropriate waste bin. Wear a single pair of gloves when handling intact tablets. When cutting or crushing, wear double gloves, gown and mask. When crushing, place medication in a plastic sleeve. *Hazardous Drug* Dispose of any unused medication in appropriate waste bin. Wear a single pair of gloves when handling intact tablets. When cutting or crushing, wear double gloves, gown and mask. When crushing, place medication in a plastic sleeve., Reason for Therapy: Viral Infection Documented, Type of Therapy: Continued from [facility] NURSING DIRECTOR, Indication: Other, Specify: cmv Given 11/15/2024 9:08 AM EDT 900 mg Given 11/14/2024 8:09 PM EDT 900 mg Given 11/14/2024 9:00 AM EDT 900 mg documented in this encounter Active and Recently Administered Medications Times are shown in EDT. Scheduled Medication Order 11/13/2024 11/14/2024 11/15/2024 aspirin EC tablet 81 mg 81 mg, Oral, Daily, First dose on Mon10/31/24 at 0900, Until Discontinued, DO NOT CRUSH, CUT, OR CHEW., Indications: Acute Myocardial Infarction 0802 (Given - Provider: Que Rubio RN) 0859 (Given - Provider: Richard Dickerson RN) 0909 (Given - Provider: Richard Dickerson, LEO) Buprenorphine (BUTRANS) patch 10 mcg(Linked Group 1) 10 mcg, Transdermal, Administer over 7 Days, Every 7 days, First dose (after last modification) on Mon11/12/24 at 1200, Until Discontinued, Medication loaded in [facility], Indications: Chronic Pain 1351 (Due: Medicatio n Removed - Provider: Automatic Discharge Provider - Comment: Time automatically adjusted from order being discontinued) Check Patch Placement(Linked Group 1) Transdermal, 2 times daily - during shift change, First dose (after last modification) on Mon11/12/24 at 1830, Until Discontinued 0732 (Check Patch Placement - Provider: Nikkie Durham RN)191 (Check Patch Placement - Provider: Que Rubio RN) 07 (Check Patch Placement - Provider: Milagros Montes RN)192 (Check Patch Placement - Provider: Richard Dickerson RN) 0717 (Check Patch Placement - Provider: Nikkie Durham RN) ciprofloxacin (CIPRO) tablet 500 mg 500 mg, Oral, 2 times daily (2 times per day), 10 doses, First dose on Mon11/14/24 at 1800, Last dose on Mon11/19/24 at 0900, No food, tube feeding or drink except water should be given 1 hour before or 1 hour after administration., Indications: Prophylaxis s/p procedure 1731 (Given - Provider: Richard Dickerson RN) 0910 (Given - Provider: Richard Dickerson RN) epoetin omar (PROCRIT) injection 15,000 Units 15,000 Units, Subcutaneous, 3 times weekly (Once per day on Monday), First dose on Mon11/01/24 at 0900, Until Discontinued, Indication: Other (specify), Specify: anemia of chronic illnesses, Pharmacy Erythropoiesis-Stimulat ing Agent (MARGO) Dosing Policy (Epoetin): https://toby[employer]/action /doc/retrieve/docid/fc_ dfc/7722963 0804 (Given - Provider: Que Rubio RN) 0917 (Given - Provider: Richard Dickerson RN) famotidine (PEPCID) tablet 20 mg 20 mg, Oral, 2 times daily (2 times per day), First dose on Mon10/30/24 at 2100, Until Discontinued 0802 (Given - Provider: Que Rubio RN)2003 (Given - Provider: Milagros Montes RN) 0900 (Given - Provider: Richard Dickerson RN)2009 (Given - Provider: Nikkie Durham RN) 0910 (Given - Provider: Richard Dickerson RN) fludrocortisone (FLORINEF) tablet 0.2 mg (COMPLETED) 0.2 mg (200 mcg), Oral, Once, 1 dose, On Mon11/14/24 at 1800 1745 (Given - Provider: Richard Dickerson RN) heparin (porcine) injection 5,000 Units 5,000 Units, Subcutaneous, Every 12 hours, First dose on Mon10/30/24 at 2100, Until Discontinued, HIGH RISK MEDICATION, Indications: Deep Vein Thrombosis Prophylaxis 0900 (Dose Auto Held - Provider: David Cruz DO)1500 (Unheld by provider - Provider: David Cruz DO - Reason: NPO)2004 (Given - Provider: Milagros Montes RN) 0900 (Given - Provider: Richard Dickerson RN)2009 (Given - Provider: Nikkie Durham RN) 0916 (Given - Provider: Richard Dickerson, LEO) linaclotide (LINZESS) capsule 145 mcg 145 mcg, Oral, Daily, First dose (after last modification) on Mon11/13/24 at 0900, Until Discontinued 08 (Given - Provider: Que Rubio RN) 0859 (Given - Provider: Richard Dickerson RN) 0910 (Given - Provider: Richard Dickerson RN) magnesium oxide tablet 800 mg 800 mg, Oral, 3 times daily (3 times per day), First dose (after last modification) on Mon11/02/24 at 1500, Until Discontinued 801 (Given - Provider: Que Rubio RN)1856 (Not Given - Provider: Que Rubio RN - Reason: Patient not available)2002 (Given - Provider: Milagros Montes RN) 0859 (Given - Provider: Richard Dickerson RN)1726 (Given - Provider: Richard Dickerson RN)2008 (Given - Provider: Nikkie Durham RN) 0908 (Given - Provider: Richard Dickerson RN)1500 (Canceled Entry - Provider: Automatic Discharge Provider - Comment: Automatically canceled at discontinue of medication order) melatonin tablet 3 mg 3 mg, Oral, Nightly, First dose on Mon11/08/24 at 2100, Until Discontinued 2002 (Given - Provider: Milagros Montes RN) 2009 (Given - Provider: Nikkie Durham RN) midodrine (PROAMATINE) tablet 10 mg 10 mg, Oral, 3 times daily- 09/26(Noon)/ (3 times per day), First dose on Mon11/06/24 at 1800, Until Discontinued 611 (Not Given - Provider: Nikkie Durham RN - Reason: Order parameters not met - Comment: b/p= 151/82)1121 (Given - Provider: Que Rubio RN)185 (Not Given - Provider: Que Rubio RN - Reason: Order parameters not met - Comment: BP 137/79) 0514 (Given - Provider: Milagros Montes RN)1227 (Given - Provider: Richard Dickerson RN)1726 (Given - Provider: Richard Dickerson RN) 0541 (Given - Provider: Nikkie Durham RN)1218 (Given - Provider: Richard Dickerson RN) mirtazapine (REMERON) tablet 7.5 mg 7.5 mg, Oral, Nightly, First dose on Mon10/30/24 at 2100, Until Discontinued 2003 (Given - Provider: Milagros Montes RN) 2009 (Given - Provider: Nikkie Durham RN) multivitamin w/ minerals (THERA M PLUS) tablet/capsule 1 tablet 1 tablet, Oral, Daily, First dose on Mon11/02/24 at 0900, Until Discontinued 08 (Given - Provider: Que Rubio RN) 0901 (Given - Provider: Richard Dickerson RN) 0916 (Given - Provider: Richard Dickerson RN) pantoprazole (PROTONIX) EC/DR tablet 40 mg 40 mg, Oral, 2 times daily before meals, First dose on Mon10/31/24 at 1630, Until Discontinued, Do not crush, chew, or break the tablet. Swallow it whole. 0801 (Given - Provider: Que Rubio RN)185 (Given - Provider: Que Rubio RN) 0900 (Given - Provider: Richard Dickerson RN)1727 (Given - Provider: Richard Dickerson RN) 0910 (Given - Provider: Richard Dickerson RN) simethicone (MYLICON) chewable tablet 80 mg 80 mg, Oral, 4 times daily, First dose on Mon11/07/24 at 1700, Until Discontinued 0803 (Given - Provider: Que Rubio RN)185 (Given - Provider: Que Rubio RN)1940 (Not Given - Provider: Milagros Montes RN - Reason: NPO)2002 (Given - Provider: Milagros Montes RN) 0900 (Given - Provider: Richard Dickerson RN)1227 (Given - Provider: Richard Dickerson RN)1728 (Given - Provider: Richard Dickerson RN)2010 (Given - Provider: Nikkie Durham RN) 0910 (Given - Provider: Richard Dickerson RN)1218 (Given - Provider: Richard Dickerson RN) sodium zirconium cyclosilicate (LOKELMA) packet 10 g (COMPLETED) 10 g, Oral, 3 times daily (3 times per day), 2 doses, First dose on Mon11/14/24 at 1700, Last dose on Mon11/14/24 at 2100, Mix contents of 1 packet with a minimum of 45 mL of water. Stir well and administer immediately; if powder remains in the glass, add water, stir, and administer immediately; repeat until no powder remains. Administer other oral medications >=2 hours before or 2 hours after dose. Drug interaction: tacrolimus + Sodium zirconium cyclosilicate : decreasees serum concentration of tacrolimus. Space apart 2 hours 1625 (Given - Provider: Richard Dickerson RN)2007 (Given - Provider: Nikkie Durham RN) sodium zirconium cyclosilicate (LOKELMA) packet 10 g (COMPLETED) 10 g, Oral, Once, 1 dose, On Mon11/14/24 at 1245, Mix contents of 1 packet with a minimum of 45 mL of water. Stir well and administer immediately; if powder remains in the glass, add water, stir, and administer immediately; repeat until no powder remains. Administer other oral medications >=2 hours before or 2 hours after dose. 1330 (Given - Provider: Richard Dickerson RN) sodium zirconium cyclosilicate (LOKELMA) packet 10 g (COMPLETED) 10 g, Oral, Once, 1 dose, On Mon11/15/24 at 1130, Mix contents of 1 packet with a minimum of 45 mL of water. Stir well and administer immediately; if powder remains in the glass, add water, stir, and administer immediately; repeat until no powder remains. Administer other oral medications >=2 hours before or 2 hours after dose. 1217 (Given - Provider: Richard Dickerson RN) sulfamethoxazole-trimet hoprim (BACTRIM) 800-160 MG per tablet double-strength 1 tablet (CANCELED) 1 tablet, Oral, 3 times weekly (Once per day on Monday), First dose (after last modification) on Mon11/13/24 at 0900, Until Discontinued, Indications: prophylaxis 08 (Given - Provider: Que Rubio RN) sulfamethoxazole-trimet hoprim (BACTRIM) 800-160 MG per tablet double-strength 1 tablet 1 tablet, Oral, 3 times weekly (Once per day on Monday), First dose (after last modification) on Mon11/18/24 at 0900, Until Discontinued, Indications: prophylaxis tacrolimus (PROGRAF) capsule 5 mg 5 mg, Oral, 2 times daily (2 times per day), First dose (after last modification) on Mon11/05/24 at 1800, Until Discontinued, *Hazardous Drug* Dispose of any unused medication in appropriate waste bin. Wear a single pair of gloves when handling intact capsules. If opening capsules, wear double gloves, gown and mask. *Hazardous Drug* Dispose of any unused medication in appropriate waste bin. Wear a single pair of gloves when handling intact capsules. If opening capsules, wear double gloves, gown and mask. 0611 (Given - Provider: Nikkie Durham RN)1852 (Given - Provider: Que Rubio, LEO) 0514 (Given - Provider: Milagros Montes RN)1726 (Given - Provider: Richard Dickerson RN) 0541 (Given - Provider: Nikkie Durham RN) tamsulosin (FLOMAX) 24 hr capsule 0.4 mg 0.4 mg, Oral, Nightly, First dose on Mon10/31/24 at 2100, Until Discontinued, Swallow whole. Do not crush, open, chew, or split capsule. 2002 (Given - Provider: Milagros Montes RN) 2009 (Given - Provider: Nikkie Durham RN) traZODone (DESYREL) tablet 50 mg 50 mg, Oral, Nightly, First dose (after last modification) on Mon11/08/24 at 2100, Until Discontinued 2002 (Given - Provider: Milagros Montes RN) 2009 (Given - Provider: Nikkie Durham RN) ursodiol (ACTIGALL) capsule 300 mg 300 mg, Oral, 3 times daily (3 times per day), First dose on Mon10/30/24 at 2100, Until Discontinued 08 (Given - Provider: Que Rubio RN)1858 (Not Given - Provider: Que Rubio RN - Reason: Patient not available)2002 (Given - Provider: Milagros Montes RN) 899 (Given - Provider: Richard Dickerson RN)172 (Given - Provider: Richard Dickerson RN)2008 (Given - Provider: Nikkie Durham RN) 09 (Given - Provider: Richard Dickerson RN)1500 (Canceled Entry - Provider: Automatic Discharge Provider - Comment: Automatically canceled at discontinue of medication order) valGANciclovir (VALCYTE) tablet 900 mg 900 mg, Oral, 2 times daily (2 times per day), First dose on Mon10/30/24 at 2100, Until Discontinued, *Hazardous Drug* Dispose of any unused medication in appropriate waste bin. Wear a single pair of gloves when handling intact tablets. When cutting or crushing, wear double gloves, gown and mask. When crushing, place medication in a plastic sleeve. *Hazardous Drug* Dispose of any unused medication in appropriate waste bin. Wear a single pair of gloves when handling intact tablets. When cutting or crushing, wear double gloves, gown and mask. When crushing, place medication in a plastic sleeve., Reason for Therapy: Viral Infection Documented, Type of Therapy: Continued from [facility]UR[facility] DIRECT[facility], Indication: Other, Specify: cmv 08 (Given - Provider: Que Rubio RN)2003 (Given - Provider: Milagros Montes RN) 09 (Given - Provider: Richard Dickerson RN)2008 (Given - Provider: Nikkie Durham RN) 0908 (Given - Provider: Richard Dickerson RN) PRN Medication Order 11/13/2024 11/14/2024 11/15/2024 acetaminophen (TYLENOL) 160 MG/5ML solution 500 mg 500 mg, Oral, Every 6 hours PRN, Starting on Mon10/30/24 at 2005, Until Mon11/15/24 at 1552, moderate pain, mild pain 1302 (Given - Provider: Richard Dickerson RN) alum & mag hydroxide-simeth enteral suspension 15 mL 15 mL, Oral, Every 4 hours PRN, Starting on Mon10/30/24 at 2005, Until Mon11/15/24 at 1552, indigestion, heartburn bisacodyl (DULCOLAX) suppository 10 mg 10 mg, Rectal, Daily PRN, Starting on Mon10/30/24 at 2005, Until Mon11/15/24 at 1552, constipation, if prefers suppository magnesium hydroxide (MILK OF MAGNESIA) 400 MG/5ML suspension 30 mL 30 mL, Oral, Daily PRN, Starting on Mon10/30/24 at 2005, Until Mon11/15/24 at 1552, constipation, if patient prefers Oral medication methocarbamol (ROBAXIN) tablet 750 mg 750 mg, Oral, 3 times daily PRN, Starting on Mon10/30/24 at 2005, Until Mon11/15/24 at 1552, muscle spasms 1120 (Given - Provider: Que Rubio RN)2001 (Given - Provider: Milagros Montes RN) 1033 (Given - Provider: Richard Dickerson RN)2010 (Given - Provider: Nikkie Durham RN) 0916 (Given - Provider: Richard Dickerson RN) ondansetron ODT (ZOFRAN-ODT) disintegrating tablet 4 mg 4 mg, Oral, Every 6 hours PRN, Starting on 11/02/24 at 1008, Until Mon11/15/24 at 1552, nausea, vomiting oxyCODONE (ROXICODONE) immediate release tablet 10 mg 10 mg, Oral, Every 6 hours PRN, Starting on Rubi 10/31/24 at 1300, Until Mon11/15/24 at 1552, severe pain, Indications: Acute Pain 1120 (Given - Provider: Que Rubio RN)2001 (Given - Provider: Milagros Montes RN) 1033 (Given - Provider: Richard Dickerson RN)2007 (Given - Provider: Nikkie Durham RN) 6035 (Given - Provider: Richard Dickerson RN) Linked Groups Order Group 1: Buprenorphine (BUTRANS) patch 10 mcgJump to med 10 mcg, Transdermal, Administer over 7 Days, Every 7 days, First dose (after last modification) on Mon11/12/24 at 1200, Until Discontinued, Medication loaded in [facility], Indications: Chronic Pain And Check Patch PlacementJump to med Transdermal, 2 times daily - during shift change, First dose (after last modification) on Mon11/12/24 at 1830, Until Discontinued documented in this encounter Care Teams Doors Prefitter Relationship Specialty Start Date End Date Rusty Delgado [address] [place] [address] PCP - General 09/30/24 documented as of this encounter
--- OUTSIDE RECORDS SUMMARY | 2024-10-30 19:01 | XMS_ITS | Encounter Summary ---
Author Organization [facility] Address [address] [place] [address] Care Team Providers Care Watch Train Inspector Name Role Phone Irena Johnson MD Unavailable Vanessa Arora MD Unavailable [phone] Danny WONG MD, Rusty Gomez Primary Care Provider [phone] Carina Ziegler RN Unavailable Unavailable Source Comments In the event this information is protected by the Federal Confidentiality of Alcohol and Drug AbusePatient Records regulations: The Federal rules restrict any use of the information to criminally investigate or prosecute any alcohol or drug abuse patient.[facility] Reason for Visit * Auth/Cert - New Request Specialty Diagnoses / Procedures Referred By Rogelio t Referred To Contact [address] [address] Referral ID Status Reason Start Date Expiration Date V isits Requested Visits Authorized New Request 10/31/2024 12/30/2024 Encounter Details Date Type Department Care Team (Late st Contact Info) Description 10/30/2024 7:01 PM EDT - 11/15/2024 1:51 PM EDT Hospital Encounter [address] [address] [place] [address] [place] [address] Social History Tobacco Use Types Packs/Day Years Used Date Smoking Tobacco: Former Cigarettes 1 20 1 04/20/1970 - 02/18/1991 Smokeless Tobacco: Never Alcohol Use Standard Drinks/Week Comments Not Currently 0 (1 standard drink = 0.6 oz pur e alcohol) Recovering alcoholic [facility] Utilities Answer Date Recorded In the past 12 months has th e [employer], gas, oil, or water [employer] threatened to shut off services in your home? No 10/08/2024 Hunger Vital Sign Answer Date Recorded Within the past 12 months, y ou worried that your food would run out before you got the money to buy more. Never true 10/09/19 25 Within the past 12 months, t he food you bought just didn't last and you didn't have money to get more. Never true 10/08/2024 PRAPARE - Transportation Answer Date Re corded In the past 12 months, has l ack of transportation kept you from medical appointments or from getting medications? No 09/16 In the past 12 months, has l ack of transportation kept you from meetings, work, or from getting things needed for daily living? No 10/08/2024 Housing Stability Vital Sign Answer Karl e Recorded In the last 12 months, was t here a time when you were not able to pay the mortgage or rent on time? No 10/08/2024 In the past 12 months, how m any times have you moved where you were living? 0 10/08/2024 Homeless in the Last Year Not on file 2024 Area Deprivation Index Answer Date Zac rded National Score (1-100), lower number is lower ri sk 80 04/25/2024 State Score (1-10), lower number is lower risk 7 04/25/2024 Data from: https://www.neighborhoodatlas.medicine.[facility].edu/. 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 Answer Date of Assessment Author No 05/31/2024 4:27 PM Cecil Huntley RN * Are you blind or do you have serious difficulty seeing, even when wearing glasses? Answer Date of Assessment Author No 05/31/2024 4:27 PM Cecil Huntley RN * Do you have serious difficulty walking or climbing stairs? Answer Date of Assessment Author No 05/31/2024 4:27 PM Cecil Huntley RN * Do you have difficulty dressing or bathing? Answer Date of Assessment Author No 05/31/2024 4:27 PM Cecil Huntley RN * Because of a physical, mental, or emotional condition, do you have difficulty doing errands alone such as visiting a doctor's office or shopping? Answer Date of Assessment Author No 05/31/2024 4:27 PM Cecil Huntley RN documented as of this encounter Mental Status * Because of a physical, mental, or emotional condition, do you have serious difficulty concentrating, remembering, or making decisions? Answer Entry Date Author No 05/31/2024 4:27 PM Cecil Huntley RN documented in this encounter Medications at Time of Discharge ciprofloxacin HCl (CIPRO) 500 mg tablet Take 1 tablet by mouth two times a day for 5 days. 10 tablet 11/15/2024 9:11 AM EDT 11/13/2024 11/21/19 25 buprenorphine (BUTRANS) 10 mcg/hour transdermal patchIndications :Compression fracture of cervical spine, non-traumatic, with delayed healing, subsequent encounter,Genera lized abdominal pain Apply 1 patch as directed one time a week ( On Tuesdays) 4 patch 11/15/2024 9:11 AM EDT 11/12/2024 12/14/19 25 linaclotide (LINZESS) 145 mcg capsule Take 1 capsule by mouth once daily. -Take capsule on an empty stomach at least 30 minutes before a meal at the same time each day. Capsule should be swallowed whole. DO NOT chew or crush 30 capsule 2 11/12/2024 simethicone, chewable (MYLICON) 80 mg chewable tablet Take 1 tablet by mouth four times a day as needed. 9am,12n, 6pm, 9pm 120 tablet 2 11/12/2024 midodrine (PROAMATINE) 10 mg tablet Take 1 tablet by mouth three times a day. 9am, 12 noon, and 6pm 90 tablet 2 11/15/2024 9:11 AM EDT 11/12/2024 tamsulosin (FLOMAX) 0.4 mg Take 1 capsule by mouth daily at bedtime. 30 capsule 2 11/15/2024 9:11 AM EDT 11/12/2024 melatonin 3 mg tablet Take 1 tablet by mouth daily at bedtime. 30 tablet 2 11/12/2024 oxyCODONE IR (ROXICODONE) 5 mg immediate release tabletIndication s:Compression fracture of cervical spine, non-traumatic, with delayed healing, subsequent encounter,Genera lized abdominal pain Take 1 tablet by mouth two times a day for 14 days. FOR PAIN. 28 tablet 11/15/2024 9:11 AM EDT 11/12/2024 11/30/19 25 acetaminophen (TYLENOL) 500 mg tablet Take 1 tablet by mouth every 6 hours as needed for pain. 60 tablet 11/12/2024 aspirin 81 mg chewable tablet Take 1 tablet by mouth once daily. 30 tablet 11 11/12/2024 famotidine (PEPCID) 20 mg tablet Take 1 tablet by mouth two times a day. 60 tablet 3 11/15/2024 9:11 AM EDT 11/12/2024 methocarbamol (ROBAXIN) 750 mg tablet Take 1 tablet by mouth two times a day. 60 tablet 1 11/15/2024 9:11 AM EDT 11/12/2024 Mirtazapine (REMERON) 7.5 mg tablet Take 1 tablet by mouth daily at bedtime. 30 tablet 2 11/15/2024 9:11 AM EDT 11/12/2024 multivitamin tablet Take 1 tablet by mouth once daily. 30 tablet 11 11/12/[address] (PROTONIX) 40 mg tablet Take 1 tablet by mouth once daily. 30 tablet 3 11/15/2024 9:11 AM EDT 11/12/2024 sulfamethoxazole -trimethoprim (BACTRIM DS) 800-160 mg per tablet Take 1 tablet by mouth every Monday, Monday, and Monday. 15 tablet 10 11/15/2024 9:11 AM EDT 11/13/2024 tacrolimus IR (PROGRAF) 5 mg capsule Take 1 capsule by mouth two times a day. 300 capsule 11 11/15/2024 9:11 AM EDT 11/12/2024 traZODone (DESYREL) 50 mg tablet Take 1 tablet by mouth daily at bedtime. 30 tablet 2 11/15/2024 9:11 AM EDT 11/12/2024 ursodiol (ACTIGALL) 300 mg capsule Take 1 capsule by mouth three times a day. 90 capsule 5 11/15/2024 9:11 AM EDT 11/12/2024 acyclovir (ZOVIRAX) 400 mg tablet Take 1 tablet by mouth two times a day. 60 tablet 11/15/2024 9:11 AM EDT 11/12/2024 furosemide (LASIX) 40 mg tablet Take 1 tablet by mouth once daily. Patient should start on October 31, 2024. 90 tablet 10/31/2024 benzonatate (TESSALON PERLE) 100 mg capsule Take 1 capsule by mouth three times a day as needed for cough. 10/30/2024 polyethylene glycol 3350 17 gram packet Take 1 packet by mouth once daily. Dissolve dose in 4 - 8 ounces of liquid and take as directed. 10/31/2024 valGANciclovir (VALCYTE) 450 mg tablet Take 2 tablets by mouth two times a day with meals. 10/30/2024 heparin 5,000 unit/mL injection Inject 1 mL subcutaneously every 12 hours. 09/27/2024 documented as of this encounter Plan of Treatment Upcoming Encounters Date Type Department Care Team (Late st Contact Info) Description 11/21/2024 4:00 PM EDT Office Visit Transplant Center [address] [address] KAYLIE ARELLANO 11/21/2024 5:40 PM EDT Appointment MRI Q [address] [address] Compression fracture of cervical spine, non-traumatic, with delayed healing, subsequent encounter [M48.52XG] 11/21/2024 6:20 PM EDT Appointment MRI Q [address] [address] Compression fracture of cervical spine, non-traumatic, with delayed healing, subsequent encounter [M48.52XG] 11/21/2024 7:00 PM EDT Appointment MRI Q [address] [address] Compression fracture of cervical spine, non-traumatic, with delayed healing, subsequent encounter [M48.52XG] 02/03/2025 9:00 AM EDT [facility] Neurology [address] [place] [address] Devyn oRach MD [address] [place] [address] Vertigo [R42] 02/10/2025 11:00 AM EDT Appointment Gastroenterology [address] [address] Jane Correia MD [address] [place], [place] [id number] Schedule in about 3 months to remove biliary stent documented as of this encounter Goals Goal Patient Goal Type Associated Problems Recent Progress Patient-Stated? Author Blood Pressure < 130/80 Blood Pressure 122/80( 025 5:30 PM EDT) No Vanessa Arora MD documented as of this encounter Procedures Procedure Name Priority Date/Time Associated Diagnosis Comments MAGNESIUM BLD Routine 11/15/2024 5:30 AM EDT STAFF REVIEW Routine 11/15/2024 5:30 AM EDT PATH INTERP CBCDIF (LAB REFLEX ORDER-NO BILL) Routine 11/15/2024 5:30 AM EDT PHOSPHORUS INORGANIC Routine 11/15/2024 5:30 AM EDT COMPREHENSIVE METABOLIC PANEL Routine 11/15/2024 5:30 AM EDT CBC + DIFF Routine 11/15/2024 5:30 AM EDT MAGNESIUM BLD Routine 11/14/2024 3:30 AM EDT NT PRO BNP Routine 11/14/2024 3:30 AM EDT TACROLIMUS/FK-506 BL Routine 11/14/2024 3:30 AM EDT PHOSPHORUS INORGANIC Routine 11/14/2024 3:30 AM EDT GGT BLD Routine 11/14/2024 3:30 AM EDT COMPREHENSIVE METABOLIC PANEL Routine 11/14/2024 3:30 AM EDT CBC + DIFF Routine 11/14/2024 3:30 AM EDT C-REACTIVE PROTEIN (CRP) Routine 11/14/2024 3:30 AM EDT MAGNESIUM BLD Routine 11/11/2024 5:06 AM EDT CYTOMEGALOVIRUS (CMV) DNA, QUANTITATIVE PCR, PLASMA Routine 11/11/2024 5:06 AM EDT NT PRO BNP Routine 11/11/2024 5:06 AM EDT TACROLIMUS/FK-506 BL Routine 11/11/2024 5:06 AM EDT PHOSPHORUS INORGANIC Routine 11/11/2024 5:06 AM EDT GGT BLD Routine 11/11/2024 5:06 AM EDT COMPREHENSIVE METABOLIC PANEL Routine 11/11/2024 5:06 AM EDT CBC + DIFF Routine 11/11/2024 5:06 AM EDT C-REACTIVE PROTEIN (CRP) Routine 11/11/2024 5:06 AM EDT MAGNESIUM BLD Routine 11/08/2024 5:21 AM EDT PHOSPHORUS INORGANIC Routine 11/08/2024 5:21 AM EDT BASIC METABOLIC PANEL Routine 11/08/2024 5:21 AM EDT ALBUMIN BLD Routine 11/08/2024 5:21 AM EDT MAGNESIUM BLD Routine 11/07/2024 10:56 AM EDT NT PRO BNP Routine 11/07/2024 10:56 AM EDT TACROLIMUS/FK-506 BL Routine 11/07/2024 10:56 AM EDT PHOSPHORUS INORGANIC Routine 11/07/2024 10:56 AM EDT GGT BLD Routine 11/07/2024 10:56 AM EDT COMPREHENSIVE METABOLIC PANEL Routine 11/07/2024 10:56 AM EDT CBC + DIFF Routine 11/07/2024 10:56 AM EDT C-REACTIVE PROTEIN (CRP) Routine 11/07/2024 10:56 AM EDT MAGNESIUM BLD Routine 11/04/2024 5:10 AM EDT CYTOMEGALOVIRUS (CMV) DNA, QUANTITATIVE PCR, PLASMA Routine 11/04/2024 5:10 AM EDT NT PRO BNP Routine 11/04/2024 5:10 AM EDT TACROLIMUS/FK-506 BL Routine 11/04/2024 5:10 AM EDT PHOSPHORUS INORGANIC Routine 11/04/2024 5:10 AM EDT GGT BLD Routine 11/04/2024 5:10 AM EDT COMPREHENSIVE METABOLIC PANEL Routine 11/04/2024 5:10 AM EDT CK CREATINE KINASE Routine 11/04/2024 5: 10 AM EDT CBC + DIFF Routine 11/04/2024 5:10 AM EDT C-REACTIVE PROTEIN (CRP) Routine 11/04/2024 5:10 AM EDT MAGNESIUM BLD Routine 11/02/2024 6:40 AM EDT RENAL FUNCTION PANEL Routine 11/02/2024 6:40 AM EDT CBC + DIFF Routine 11/02/2024 6:40 AM EDT MAGNESIUM BLD Routine 11/01/2024 5:01 AM EDT NT PRO BNP Routine 11/01/2024 5:01 AM EDT VITAMIN B12 BLOOD Routine 11/01/2024 5:0 1 AM EDT RENAL FUNCTION PANEL Routine 11/01/2024 5:01 AM EDT IRON + TIBC Routine 11/01/2024 5:01 AM EDT FOLATE SERUM Routine 11/01/2024 5:01 AM EDT FERRITIN BLD Routine 11/01/2024 5:01 AM EDT CBC + DIFF Routine 11/01/2024 5:01 AM EDT MAGNESIUM BLD Routine 10/31/2024 4:52 AM EDT NT PRO BNP Routine 10/31/2024 4:52 AM EDT TACROLIMUS/FK-506 BL Routine 10/31/2024 4:52 AM EDT PHOSPHORUS INORGANIC Routine 10/31/2024 4:52 AM EDT GGT BLD Routine 10/31/2024 4:52 AM EDT COMPREHENSIVE METABOLIC PANEL Routine 10/31/2024 4:52 AM EDT CBC + DIFF Routine 10/31/2024 4:52 AM EDT C-REACTIVE PROTEIN (CRP) Routine 10/31/2024 4:52 AM EDT documented in this encounter Results * PATHOLOGIST INTERPRETATION CBC AND DIFFERENTIAL (LAB REFLEX ORDER-NO BILL) (11/15/2024 5:30 AM EDT) Pathologist Interpretation, CBCDIF Normocytic anemia with slight polychromasia Leukopenia with absolute lymphopenia Thrombocytosis 11/15/2024 7:18 PM EDT [facility] CBCDIF Pathologist Reviewed by Reviewed by Leona Mak MD 11/15/2024 7:18 PM EDT [facility] Blood BLOOD SPECIMEN / Unknown 11/15/2024 5:30 AM EDT 11/15/2024 9:05 AM EDT us Albert Meyers OPTICAL LENS MANUFACTURING TECH.MANAGER COMM[employer]CIAL LABORATORY Final Re sult [facility] [address] [facility] Desk [address] [address], * STAFF REVIEW (11/15/2024 5:30 AM EDT) Reviewed MD KAT 11/15/2024 7:1 3 PM EDT [facility] Blood BLOOD SPECIMEN / Unknown 11/15/2024 5:30 AM EDT 11/15/2024 9:05 AM EDT Albert Meyers OPTICAL LENS MANUFACTURING TECH.MANAGER [employer]CIAL LABORATORY Final Re sult [facility] [address] [facility] [address] [place] [address], [place] * PHOSPHORUS INORGANIC (11/15/2024 5:30 AM EDT) Phosphorus 4.7 2.7 - 4.8 mg/dL 11/15/2024 10:09 AM EDT [facility] Blood BLOOD SPECIMEN / Unknown 11/15/2024 5:30 AM EDT 11/15/2024 9:05 AM EDT Albert Meyers OPTICAL LENS MANUFACTURING TECH.MANAGER [employer] Final Re sult Performing Organization Address [facility]/ZIP Co de Phone Number [facility] [address] [place] [address], [place] * (ABNORMAL) COMPREHENSIVE METABOLIC PANEL (11/15/2024 5:30 AM EDT) Protein, Total 5.5(L) 6.3 - 8.0 g/dL 11/15/2024 10:09 AM EDT [facility] Albumin 2.9(L) 3.9 - 4.9 g/dL 11/15/2024 10:09 AM EDT [facility] Calcium, Total 8.6 8.5 - 10.2 mg/dL 11/15/2024 10:09 AM EDT [facility] Bilirubin, Total 0.2 0.2 - 1.3 mg/dL 11/15/2024 10:09 AM EDT [facility] Alkaline Phosphatase 143(H) 38 - 113 U/L 11/15/2024 10:09 AM EDT [facility] AST 20 14 - 40 U/L 11/15/2024 10:09 AM EDT [facility] ALT 11 10 - 54 U/L 11/15/2024 10:09 AM EDT [facility] Glucose 88 74 - 99 mg/dL 11/15/2024 10:09 AM [facility] Comment: The [place] Diabetes Association (ADA) provides guidance for cutoff [...] Standards of Medical Care in Diabetes 2016, [place] Diabetes Association. Diabetes Care. 2016.39(Suppl 1). BUN 17 9 - 24 mg/dL 11/15/2024 10:09 AM [facility] Creatinine 1.52(H) 0.73 - 1.22 mg/dL 11/15/2024 10:09 AM [facility] Sodium 135(L) 136 - 144 mmol/L 11/15/2024 10:09 AM [facility] Potassium 5.1 3.7 - 5.1 mmol/L 11/15/2024 10:09 AM [facility] Chloride 101 98 - 107 mmol/L 11/15/2024 10:09 AM [facility] CO2 22 22 - 30 mmol/L 11/15/2024 10:09 AM [facility] Anion Gap 12 8 - 15 mmol/L 11/15/2024 10:09 AM [facility] Estimated Glomerular Filtration Rate 49(L) >=60 mL/min/1. 73m 11/15/2024 10:09 AM [facility] Comment:Estimated Glomerular Filtration Rate (eGFR) is calculated using the 2020 CKD-EPI creatinine equation. This equation utilizes serum creatinine, sex, and age as parameters. The creatinine assay has traceable calibration to isotope dilution- mass spectrometry. Refer to KDIGO guidelines for clinical interpretation. In patients with unstable renal function, e.g. those with acute kidney injury, the eGFR may not accurately reflect actual GFR. Blood BLOOD SPECIMEN / Unknown 11/15/2024 5:30 AM EDT 11/15/2024 9:05 AM EDT us Luís Bboby MD LABORATORY Final Result [facility] [address] [place] [address], * (ABNORMAL) COMPLETE BLOOD COUNT AND DIFFERENTIAL (11/15/2024 5:30 AM EDT) WBC 2.45(L) 3.70 - 11.00 k/uL 11/15/2024 7:18 PM EDT [facility] RBC 2.57(L) 4.20 - 6.00 m/uL 11/15/2024 7:18 PM EDT [facility] Hemoglobin 7.8(L) 13.0 - 17.0 g/dL 11/15/2024 7:18 PM EDT [facility] Hematocrit 25.4(L) 39.0 - 51.0 % 11/15/2024 7:18 PM EDT [facility] MCV 98.8 80.0 - 100.0 fL 11/15/2024 7:18 PM EDT [facility] MCH 30.4 26.0 - 34.0 pg 11/15/2024 7:18 PM EDT [facility] MCHC 30.7 30.5 - 36.0 g/dL 11/15/2024 7:18 PM EDT [facility] RDW-CV 19.2(H) 11.5 - 15.0 % 11/15/2024 7:18 PM EDT [facility] Platelet Count 583(H) 150 - 400 k/uL 11/15/2024 7:18 PM EDT [facility] MPV 9.0 9.0 - 12.7 fL 11/15/2024 7:18 PM EDT [facility] NRBC 1.0 /100 WBC 11/15/2024 7:18 PM EDT [facility] Absolute nRBC 0.02(H) <0.01 k/uL 11/15/2024 7:18 PM EDT [facility] Neutrophils % 66.0 % 11/15/2024 7:18 PM EDT [facility] Abs Neut (Segs + Bands) 1.62 1.45 - 7.50 k/uL 11/15/2024 7:18 PM EDT [facility] Lymphocytes % 17.0 % 11/15/2024 7:18 PM EDT [facility] Abs Lymph (Normal + Reactive) 0.42(L) 1.00 - 4.00 k/uL 11/15/2024 7:18 PM EDT [facility] Monocytes % 2.0 % 11/15/2024 7:18 PM EDT [facility] Abs [place] 0.05 <0.87 k/uL 11/15/2024 7:18 PM EDT [facility] Eosin% 3.0 % 11/15/2024 7:18 PM EDT [facility] Abs Eosin 0.07 <0.46 k/uL 11/15/2024 7:18 PM EDT [facility] Basophils % 5.0 % 11/15/2024 7:18 PM EDT [facility] Abs Baso 0.12(H) <0.11 k/uL 11/15/2024 7:18 PM EDT [facility] [place] % 5.0 % 11/15/2024 7:18 PM EDT [facility] Myelo % 2.0 % 11/15/2024 7:18 PM EDT [facility] Left Shift Present 11/15/2024 7:18 PM EDT [facility] Platelet Estimate Increased 11/15/2024 7:18 PM EDT [facility] Red Cell Morph Reviewed: see results of individual morphologies 11/15/2024 7:18 PM EDT [facility] Polychromasia Slight 11/15/2024 7:18 PM EDT [facility] Anisocytosis Present 11/15/2024 7:18 PM EDT [facility] Ovalocytes Few 11/15/2024 7:18 PM EDT [facility] Diff Type Manual 11/15/2024 7:18 PM EDT [facility] Blood BLOOD SPECIMEN / Unknown 11/15/2024 5:30 AM EDT 11/15/2024 9:05 AM EDT Narrative [facility] - 11/15/2024 7:18 PM EDT This is an appended report. These results have been appended to a previously verified report. Albert Meyers OPTICAL LENS MANUFACTURING TECH.MANAGER [employer]CIAL LABORATORY Edited R esult - Final Performing Organization Address City/[facility]/ZIP Co de Phone Number [facility] [address] [facility] [address] [place] [address], [facility] [address] [place] [address], [place] * MAGNESIUM (11/15/2024 5:30 AM EDT) Magnesium 2.1 1.7 - 2.3 mg/dL 11/15/2024 10:09 AM EDT [facility] Blood BLOOD SPECIMEN / Unknown 11/15/2024 5:30 AM EDT 11/15/2024 9:05 AM EDT Albert Meyesr OPTICAL LENS MANUFACTURING TECH.MANAGER COMMERCIAL LABORATORY Final Re sult Performing Organization Address [facility] Co de Phone Number [facility] [address] [place] [id number], [place] * MAGNESIUM (11/14/2024 3:30 AM EDT) Magnesium 2.1 1.7 - 2.3 mg/dL 11/14/2024 11:32 AM EDT [facility] Blood BLOOD SPECIMEN / Unknown 11/14/2024 3:30 AM EDT 11/14/2024 9:09 AM EDT Jonathan Cruz DO LABORATORY Final Result Performing Organization Address [facility] de Phone Number [facility] [id number] [place], [place] [id number], [place] * GGT (11/14/2024 3:30 AM EDT) GGT 70 10 - 70 U/L 11/14/2024 5:57 PM EDT [facility] Blood BLOOD SPECIMEN / Unknown Venipuncture / Unknown 11/14/2024 3:30 AM EDT 11/14/2024 9:09 AM EDT Jonathan Cruz DO LABORATORY Final Result [facility] [address] [place] [place] [address], [place] * (ABNORMAL) C-REACTIVE PROTEIN (11/14/2024 3:30 AM EDT) CRP 20.7(H) <0.9 mg/dL 11/14/2024 11:32 AM EDT [facility] Blood BLOOD SPECIMEN / Unknown 11/14/2024 3:30 AM EDT 11/14/2024 9:09 AM EDT [facility] Final Result Performing Organization Address [facility]/ZIP Co de Phone Number [facility] [address] [place] [id number], [place] * (ABNORMAL) COMPREHENSIVE METABOLIC PANEL (11/14/2024 3:30 AM EDT) Protein, Total 5.7(L) 6.3 - 8.0 g/dL 11/14/2024 11:32 AM EDT [facility] Albumin 2.8(L) 3.9 - 4.9 g/dL 11/14/2024 11:32 AM EDT [facility] Calcium, Total 8.6 8.5 - 10.2 mg/dL 11/14/2024 11:32 AM EDT [facility] Bilirubin, Total 0.2 0.2 - 1.3 mg/dL 11/14/2024 11:32 AM EDT [facility] Alkaline Phosphatase 136(H) 38 - 113 U/L 11/14/2024 11:32 AM EDT [facility] AST 25 14 - 40 U/L 11/14/2024 11:32 AM EDT [facility] ALT 12 10 - 54 U/L 11/14/2024 11:32 AM EDT [facility] Glucose 113(H) 74 - 99 mg/dL 11/14/2024 11:32 AM EDT [facility] Comment: The [place] Diabetes Association (ADA) provides guidance for cutoff [...] Standards of Medical Care in Diabetes 2016, [place] Diabetes Association. Diabetes Care. 2016.39(Suppl 1). BUN 20 9 - 24 mg/dL 11/14/2024 11:32 AM EDT [facility] Creatinine 1.40(H) 0.73 - 1.22 mg/dL 11/14/2024 11:32 AM EDT [facility] Sodium 134(L) 136 - 144 mmol/L 11/14/2024 11:32 AM EDT [facility] Potassium 5.9(H) 3.7 - 5.1 mmol/L 11/14/2024 11:32 AM EDT [facility] Chloride 102 98 - 107 mmol/L 11/14/2024 11:32 AM EDT [facility] CO2 22 22 - 30 mmol/L 11/14/2024 11:32 AM EDT [facility] Anion Gap 10 8 - 15 mmol/L 11/14/2024 11:32 AM EDT [facility] Estimated Glomerular Filtration Rate 54(L) >=60 mL/min/1. 73m 11/14/2024 11:32 AM EDT [facility] Comment:Estimated Glomerular Filtration Rate (eGFR) is calculated using the 2020 CKD-EPI creatinine equation. This equation utilizes serum creatinine, sex, and age as parameters. The creatinine assay has traceable calibration to isotope dilution- mass spectrometry. Refer to KDIGO guidelines for clinical interpretation. In patients with unstable renal function, e.g. those with acute kidney injury, the eGFR may not accurately reflect actual GFR. Blood BLOOD SPECIMEN / Unknown 11/14/2024 3:30 AM EDT 11/14/2024 9:09 AM EDT Jonathan Cruz DO LABORATORY Final Result [facility] [address] [place] [address], * (ABNORMAL) COMPLETE BLOOD COUNT AND DIFFERENTIAL (11/14/2024 3:30 AM EDT) WBC 2.59(L) 3.70 - 11.00 k/uL 11/14/2024 11:54 AM EDT [facility] RBC 2.40(L) 4.20 - 6.00 m/uL 11/14/2024 11:54 AM EDT [facility] Hemoglobin 7.2(L) 13.0 - 17.0 g/dL 11/14/2024 11:54 AM EDT [facility] Hematocrit 23.9(L) 39.0 - 51.0 % 11/14/2024 11:54 AM EDT [facility] MCV 99.6 80.0 - 100.0 fL 11/14/2024 11:54 AM EDT [facility] MCH 30.0 26.0 - 34.0 pg 11/14/2024 11:54 AM EDT [facility] MCHC 30.1(L) 30.5 - 36.0 g/dL 11/14/2024 11:54 AM EDT [facility] RDW-CV 19.1(H) 11.5 - 15.0 % 11/14/2024 11:54 AM EDT [facility] Platelet Count 507(H) 150 - 400 k/uL 11/14/2024 11:54 AM EDT [facility] MPV 9.1 9.0 - 12.7 fL 11/14/2024 11:54 AM EDT [facility] Neutrophils % 74.2 % 11/14/2024 11:54 AM EDT [facility] Abs Neut 1.92 1.45 - 7.50 k/uL 11/14/2024 11:54 AM EDT [facility] Lymphocytes % 15.8 % 11/14/2024 11:54 AM EDT [facility] Abs Lymph 0.41(L) 1.00 - 4.00 k/uL 11/14/2024 11:54 AM EDT [facility] Monocytes % 3.1 % 11/14/2024 11:54 AM EDT [facility] Abs [place] 0.08 <0.87 k/uL 11/14/2024 11:54 AM EDT [facility] Eosinophils % 0.4 % 11/14/2024 11:54 AM EDT [facility] Abs Eosin <0.03 <0.46 k/uL 11/14/2024 11:54 AM EDT [facility] Basophils % 2.3 % 11/14/2024 11:54 AM EDT [facility] Abs Baso 0.06 <0.11 k/uL 11/14/2024 11:54 AM EDT [facility] Immature Granulocytes % 4.2 % 11/14/2024 11:54 AM EDT [facility] Abs Immature Gran 0.11(H) <0.10 k/uL 11/14/2024 11:54 AM EDT [facility] NRBC 1.2 /100 WBC 11/14/2024 11:54 AM EDT [facility] Absolute nRBC 0.03(H) <0.01 k/uL 11/14/2024 11:54 AM EDT [facility] Diff Type Auto 11/14/2024 11:54 AM EDT [facility] Blood BLOOD SPECIMEN / Unknown 11/14/2024 3:30 AM EDT 11/14/2024 9:09 AM EDT [facility] Final Result Performing Organization Address City/[facility]/ZIP Co de Phone Number [facility] [address] [place] [address], [place] * (ABNORMAL) NT PRO BNP (11/14/2024 3:30 AM EDT) NT Pro BNP 543(H) <125 pg/mL 11/14/2024 11:01 AM EDT [facility] Blood BLOOD SPECIMEN / Unknown 11/14/2024 3:30 AM EDT 11/14/2024 9:09 AM EDT [facility] Final Result Performing Organization Address [facility] Co de Phone Number [facility] [address] [place] [address], [place] * TACROLIMUS/FK-506 BL (11/14/2024 3:30 AM EDT) Tacrolimus/FK506 10.2 5.0 - 20.0 ng/mL 11/14/2024 5:31 PM EDT [facility] Comment:Individualized targe t levels for a given patient will depend [...] situation. Test performed by chemiluminescent immunoassay using [employer] i. Blood BLOOD SPECIMEN / Unknown Venipuncture / Unknown 11/14/2024 3:30 AM EDT 11/14/2024 9:09 AM EDT [facility] LABORATORY Final Result Performing Organization Address [facility]/ZIP Co de Phone Number [facility] [address] [address], [place] * (ABNORMAL) PHOSPHORUS INORGANIC (11/14/2024 3:30 AM EDT) Pathologist [facility] Phosphorus 4.9(H) 2.7 - 4.8 mg/dL 11/14/2024 10:46 AM EDT [facility] Blood BLOOD SPECIMEN / Unknown 11/14/2024 3:30 AM EDT 11/14/2024 9:09 AM EDT [facility] LABORATORY Final Result [facility] [address] [place] [address], [place] * MAGNESIUM (11/11/2024 5:06 AM EDT) Magnesium 2.2 1.7 - 2.3 mg/dL 11/11/2024 10:00 AM EDT [facility] Blood BLOOD SPECIMEN / Unknown Venipuncture / Unknown 11/11/2024 5:06 AM EDT 11/11/2024 8:54 AM EDT Jonathan Cruz DO LABORATORY Final Result Performing Organization Address [facility]/ZIP Co de Phone Number [facility] [address] [place] [address], [place] * (ABNORMAL) GGT (11/11/2024 5:06 AM EDT) GGT 93(H) 10 - 70 U/L 11/11/2024 4:05 PM EDT [facility] Blood BLOOD SPECIMEN / Unknown Venipuncture / Unknown 11/11/2024 5:06 AM EDT 11/11/2024 8:54 AM EDT Jonathan Cruz DO LABORATORY Final Result Performing Organization Address [facility] Co de Phone Number [facility] [address] [address], [place] * (ABNORMAL) C-REACTIVE PROTEIN (11/11/2024 5:06 AM EDT) CRP 16.9(H) <0.9 mg/dL 11/11/2024 10:00 AM EDT [facility] Blood BLOOD SPECIMEN / Unknown Venipuncture / Unknown 11/11/2024 5:06 AM EDT 11/11/2024 8:54 AM EDT Jonathan Cruz DO LABORATORY Final Result Performing Organization Address [facility] de Phone Number [facility] [address] [place] [address], [place] * (ABNORMAL) COMPREHENSIVE METABOLIC PANEL (11/11/2024 5:06 AM EDT) Protein, Total 5.8(L) 6.3 - 8.0 g/dL 11/11/2024 10:00 AM EDT [facility] Albumin 3.0(L) 3.9 - 4.9 g/dL 11/11/2024 10:00 AM EDT [facility] Calcium, Total 8.8 8.5 - 10.2 mg/dL 11/11/2024 10:00 AM EDT [facility] Bilirubin, Total 0.3 0.2 - 1.3 mg/dL 11/11/2024 10:00 AM [facility] Alkaline Phosphatase 151(H) 38 - 113 U/L 11/11/2024 10:00 AM [facility] AST 19 14 - 40 U/L 11/11/2024 10:00 AM [facility] ALT 11 10 - 54 U/L 11/11/2024 10:00 AM [facility] Glucose 90 74 - 99 mg/dL 11/11/2024 10:00 AM [facility] Comment: The [place] Diabetes Association (ADA) provides guidance for cutoff [...] Standards of Medical Care in Diabetes 2016, [place] [employer] Association. Diabetes Care. 2016.39(Suppl 1). BUN 18 9 - 24 mg/dL 11/11/2024 10:00 AM [facility] Creatinine 1.52(H) 0.73 - 1.22 mg/dL 11/11/2024 10:00 AM [facility] Sodium 136 136 - 144 mmol/L 11/11/2024 10:00 AM [facility] Potassium 5.0 3.7 - 5.1 mmol/L 11/11/2024 10:00 AM [facility] Chloride 100 98 - 107 mmol/L 11/11/2024 10:00 AM [facility] CO2 24 22 - 30 mmol/L 11/11/2024 10:00 AM [facility] Anion Gap 12 8 - 15 mmol/L 11/11/2024 10:00 AM [facility] Estimated Glomerular Filtration Rate 49(L) >=60 mL/min/1. 73m 11/11/2024 10:00 AM [facility] Comment:Estimated Glomerular Filtration Rate (eGFR) is calculated using the 2020 CKD-EPI creatinine equation. This equation utilizes serum creatinine, sex, and age as parameters. The creatinine assay has traceable calibration to isotope dilution- mass spectrometry. Refer to KDIGO guidelines for clinical interpretation. In patients with unstable renal function, e.g. those with acute kidney injury, the eGFR may not accurately reflect actual GFR. Blood BLOOD SPECIMEN / Unknown Venipuncture / Unknown 11/11/2024 5:06 AM EDT 11/11/2024 8:54 AM EDT [facility] LABORATORY Final Result Performing Organization Address City/[facility]/ZIP Co de Phone Number [facility] [address] [place] [address], * CYTOMEGALOVIRUS (CMV) DNA, QUANTITATIVE PCR, PLASMA (11/11/2024 5:06 AM EDT) Pathologist [facility] CMV DNA Not detected Not Detected MIKA SAV [address] 11/11/2024 10:07 PM EDT [facility] Blood BLOOD SPECIMEN / Unknown Venipuncture / Unknown 11/11/2024 5:06 AM EDT 11/11/2024 8:54 AM EDT Narrative [facility] - 11/11/2024 10:07 PM EDT sav CMV is an in vitro nucleic acid amplification test for the quantitation of cytomegalovirus (CMV) DNA in human EDTA plasma. The linear range of the assay is 34.5 to 10,000,000 IU/mL (1.54 - 7.00 log IU/mL). The lower limit of detection of the assay is 34.5 IU/mL. [facility] LAB[facility]ATORY Final Result [facility] [address] [place] [address], * (ABNORMAL) COMPLETE BLOOD COUNT AND DIFFERENTIAL (11/11/2024 5:06 AM EDT) [facility] WBC 3.22(L) 3.70 - 11.00 k/uL 11/11/2024 10:13 AM EDT [facility] RBC 2.60(L) 4.20 - 6.00 m/uL 11/11/2024 10:13 AM [facility] Hemoglobin 8.0(L) 13.0 - 17.0 g/dL 11/11/2024 10:13 AM [facility] Hematocrit 25.6(L) 39.0 - 51.0 % 11/11/2024 10:13 AM [facility] MCV 98.5 80.0 - 100.0 fL 11/11/2024 10:13 AM [facility] MCH 30.8 26.0 - 34.0 pg 11/11/2024 10:13 AM [facility] MCHC 31.3 30.5 - 36.0 g/dL 11/11/2024 10:13 AM [facility] RDW-CV 18.6(H) 11.5 - 15.0 % 11/11/2024 10:13 AM [facility] Platelet Count 561(H) 150 - 400 k/uL 11/11/2024 10:13 AM [facility] MPV 9.0 9.0 - 12.7 fL 11/11/2024 10:13 AM [facility] NRBC 0.0 /100 WBC 11/11/2024 10:13 AM [facility] Absolute nRBC <0.01 <0.01 k/uL 11/11/2024 10:13 AM [facility] Neutrophils % 80.0 % 11/11/2024 10:13 AM [facility] Abs Neut (Segs + Bands) 2.58 1.45 - 7.50 k/uL 11/11/2024 10:13 AM [facility] Lymphocytes % 7.0 % 11/11/2024 10:13 AM [facility] Abs Lymph (Normal + Reactive) 0.23(L) 1.00 - 4.00 k/uL 11/11/2024 10:13 AM [facility] Monocytes % 3.0 % 11/11/2024 10:13 AM [facility] Abs [place] 0.10 <0.87 k/uL 11/11/2024 10:13 AM [facility] Eosin% 3.0 % 11/11/2024 10:13 AM EDT [facility] Abs Eosin 0.10 <0.46 k/uL 11/11/2024 10:13 AM EDT [facility] Basophils % 4.0 % 11/11/2024 10:13 AM EDT [facility] Abs Baso 0.13(H) <0.11 k/uL 11/11/2024 10:13 AM EDT [facility] [place] % 3.0 % 11/11/2024 10:13 AM EDT [facility] Left Shift Present 11/11/2024 10:13 AM EDT [facility] Platelet Estimate Increased 11/11/2024 10:13 AM EDT [facility] Red Cell Morph Reviewed: see results of individual morphologies 11/11/2024 10:13 AM EDT [facility] Polychromasia Slight 11/11/2024 10:13 AM EDT [facility] Anisocytosis Present 11/11/2024 10:13 AM EDT [facility] Ovalocytes Few 11/11/2024 10:13 AM EDT [facility] Diff Type Manual 11/11/2024 10:13 AM EDT [facility] Blood BLOOD SPECIMEN / Unknown Venipuncture / Unknown 11/11/2024 5:06 AM EDT 11/11/2024 8:54 AM EDT Narrative [facility] - 11/11/2024 10:13 AM EDT This is an appended report. These results have been appended to a previously verified report. Jonathan Cruz DO LABORATORY Final Result Performing Organization Address City/[facility] Co de Phone Number [facility] [address] [place] [address], * (ABNORMAL) NT PRO BNP (11/11/2024 5:06 AM EDT) NT Pro BNP 453(H) <125 pg/mL 11/11/2024 9:47 AM EDT [facility] Blood BLOOD SPECIMEN / Unknown Venipuncture / Unknown 11/11/2024 5:06 AM EDT 11/11/2024 8:54 AM EDT [facility] Final Result Performing Organization Address City/[facility] Co de Phone Number [facility] [address] [place] [address], [place] * TACROLIMUS/FK-506 BL (11/11/2024 5:06 AM EDT) Pathologist [facility] Tacrolimus/FK506 11.5 5.0 - 20.0 ng/mL 11/11/2024 6:13 PM EDT [facility] Comment:Individualized targe t levels for a given patient will depend [...] situation. Test performed by chemiluminescent immunoassay using [employer] i. Blood BLOOD SPECIMEN / Unknown Venipuncture / Unknown 11/11/2024 5:06 AM EDT 11/11/2024 8:54 AM EDT Jonathan Cruz DO LABORATORY Final Result Performing Organization Address [facility] Co de Phone Number [facility] [address] [place] [address], [place] * PHOSPHORUS INORGANIC (11/11/2024 5:06 AM EDT) Pathologist [facility] Phosphorus 3.9 2.7 - 4.8 mg/dL 11/11/2024 9:53 AM EDT [facility] Blood BLOOD SPECIMEN / Unknown Venipuncture / Unknown 11/11/2024 5:06 AM EDT 11/11/2024 8:54 AM EDT Jonathan Anthonycarolyn YIP LABORATORY Final Result Performing Organization Address [facility] Co de Phone Number [facility] [address] [place] [id number], [place] * PHOSPHORUS INORGANIC (11/08/2024 5:21 AM EDT) Pathologist [facility] Phosphorus 4.4 2.7 - 4.8 mg/dL 11/08/2024 8:26 AM EDT [facility] Blood BLOOD SPECIMEN / Unknown Venipuncture / Unknown 11/08/2024 5:21 AM EDT 11/08/2024 7:52 AM EDT Albert Meyers [employer] LABORATORY Final Re sult Performing Organization Address [facility] Co de Phone Number [facility] [address] [place] [address], * (ABNORMAL) ALBUMIN (11/08/2024 5:21 AM EDT) Albumin 3.4(L) 3.9 - 4.9 g/dL 11/08/2024 8:26 AM EDT [facility] Blood BLOOD SPECIMEN / Unknown Venipuncture / Unknown 11/08/2024 5:21 AM EDT 11/08/2024 7:52 AM EDT Albert Meyers [employer]CH[employer]MANA[employer] [facility] Final Re sult Performing Organization Address [facility] de Phone Number [facility] [address] [place] [address], [place] * (ABNORMAL) BASIC METABOLIC PANEL (11/08/2024 5:21 AM EDT) Glucose 92 74 - 99 mg/dL 11/08/2024 8:26 AM EDT [facility] Comment: The [place] Diabetes Association (ADA) provides guidance for cutoff [...] Standards of Medical Care in Diabetes 2016, [place] [employer] Association. Diabetes Care. 2016.39(Suppl 1). BUN 17 9 - 24 mg/dL 11/08/2024 8:26 AM EDT [facility] Creatinine 1.55(H) 0.73 - 1.22 mg/dL 11/08/2024 8:[facility] Sodium 135(L) 136 - 144 mmol/L 11/08/2024 8:26 AM EDT [facility] Potassium 4.6 3.7 - 5.1 mmol/L 11/08/2024 8:26 AM EDT [facility] Chloride 97(L) 98 - 107 mmol/L 11/08/2024 8:26 AM EDT [facility] CO2 27 22 - 30 mmol/L 11/08/2024 8:26 AM [facility] Anion Gap 11 8 - 15 mmol/L 11/08/2024 8:26 AM [facility] Calcium, Total 9.0 8.5 - 10.2 mg/dL 11/08/2024 8:26 AM EDT [facility] Estimated Glomerular Filtration Rate 48(L) >=60 mL/min/1. 73m 11/08/2024 8:26 AM [facility] Comment:Estimated Glomerular Filtration Rate (eGFR) is calculated using the 2020 CKD-EPI creatinine equation. This equation utilizes serum creatinine, sex, and age as parameters. The creatinine assay has traceable calibration to isotope dilution- mass spectrometry. Refer to KDIGO guidelines for clinical interpretation. In patients with unstable renal function, e.g. those with acute kidney injury, the eGFR may not accurately reflect actual GFR. Blood BLOOD SPECIMEN / Unknown Venipuncture / Unknown 11/08/2024 5:21 AM EDT 11/08/2024 7:52 AM EDT us Betty Dias DO LABORATORY Final Result [facility] [address] [place] [address], * MAGNESIUM (11/08/2024 5:21 AM EDT) Magnesium 2.1 1.7 - 2.3 mg/dL 11/08/2024 8:26 AM EDT [facility] Blood BLOOD SPECIMEN / Unknown Venipuncture / Unknown 11/08/2024 5:21 AM EDT 11/08/2024 7:52 AM EDT Albert Meyers [employer]CH[employer]MANAGER [employer] [facility] Final Re sult [facility] [address] [place] [address], [place] * MAGNESIUM (11/07/2024 10:56 AM EDT) Magnesium 2.0 1.7 - 2.3 mg/dL 11/07/2024 2:50 PM EDT [facility] Blood BLOOD SPECIMEN / Unknown 11/07/2024 10:56 AM EDT 11/07/2024 11:40 AM EDT Jonathan Cruz DO LABORATORY Final Result Performing Organization Address [facility] Co de Phone Number [facility] [address] [place] [address], [place] * (ABNORMAL) GGT (11/07/2024 10:56 AM EDT) GGT 98(H) 10 - 70 U/L 11/07/2024 11:09 PM EDT [facility] Blood BLOOD SPECIMEN / Unknown Venipuncture / Unknown 11/07/2024 10:56 AM EDT 11/07/2024 11:38 AM EDT Jonathan Cruz DO LABORATORY Final Result Performing Organization Address City/[facility]/ZIP Co de Phone Number [facility] [address] [address], [place] * (ABNORMAL) C-REACTIVE PROTEIN (11/07/2024 10:56 AM EDT) CRP 17.2(H) <0.9 mg/dL 11/07/2024 2:50 PM EDT [facility] Blood BLOOD SPECIMEN / Unknown 11/07/2024 10:56 AM EDT 11/07/2024 11:40 AM EDT Jonathan Cruz DO LABORATORY Final Result [facility] [address] [place] [address], * (ABNORMAL) COMPREHENSIVE METABOLIC PANEL (11/07/2024 10:56 AM EDT) Protein, Total 5.4(L) 6.3 - 8.0 g/dL 11/07/2024 2:50 PM EDT [facility] Albumin 3.0(L) 3.9 - 4.9 g/dL 11/07/2024 2:50 PM EDT [facility] Calcium, Total 8.8 8.5 - 10.2 mg/dL 11/07/2024 2:50 PM EDT [facility] Bilirubin, Total 0.3 0.2 - 1.3 mg/dL 11/07/2024 2:50 PM EDT [facility] Alkaline Phosphatase 156(H) 38 - 113 U/L 11/07/2024 2:50 PM EDT [facility] AST 18 14 - 40 U/L 11/07/2024 2:50 PM EDT [facility] ALT 12 10 - 54 U/L 11/07/2024 2:50 PM EDT [facility] Glucose 77 74 - 99 mg/dL 11/07/2024 2:50 PM EDT [facility] Comment: The [place] Diabetes Association (ADA) provides guidance for cutoff [...] Standards of Medical Care in Diabetes 2016, [place] Diabetes Association. Diabetes Care. 2016.39(Suppl 1). BUN 16 9 - 24 mg/dL 11/07/2024 2:50 PM EDT [facility] Creatinine 1.50(H) 0.73 - 1.22 mg/dL 11/07/2024 2:50 PM EDT [facility] Sodium 136 136 - 144 mmol/L 11/07/2024 2:50 PM EDT [facility] Potassium 4.8 3.7 - 5.1 mmol/L 11/07/2024 2:50 PM EDT [facility] Chloride 96(L) 98 - 107 mmol/L 11/07/2024 2:50 PM EDT [facility] CO2 24 22 - 30 mmol/L 11/07/2024 2:50 PM EDT [facility] Anion Gap 16(H) 8 - 15 mmol/L 11/07/2024 2:50 PM EDT [facility] Estimated Glomerular Filtration Rate 49(L) >=60 mL/min/1. 73m 11/07/2024 2:50 PM EDT [facility] Comment:Estimated Glomerular Filtration Rate (eGFR) is calculated using the 2020 CKD-EPI creatinine equation. This equation utilizes serum creatinine, sex, and age as parameters. The creatinine assay has traceable calibration to isotope dilution- mass spectrometry. Refer to KDIGO guidelines for clinical interpretation. In patients with unstable renal function, e.g. those with acute kidney injury, the eGFR may not accurately reflect actual GFR. Blood BLOOD SPECIMEN / Unknown 11/07/2024 10:56 AM EDT 11/07/2024 11:40 AM EDT Jonathan Cruz DO LABORATORY Final Result [facility] [address] [place] [address], * (ABNORMAL) COMPLETE BLOOD COUNT AND DIFFERENTIAL (11/07/2024 10:56 AM EDT) WBC 3.16(L) 3.70 - 11.00 k/uL 11/07/2024 12:39 PM EDT [facility] RBC 2.48(L) 4.20 - 6.00 m/uL 11/07/2024 12:39 PM EDT [facility] Hemoglobin 7.5(L) 13.0 - 17.0 g/dL 11/07/2024 12:39 PM EDT [facility] Hematocrit 23.7(L) 39.0 - 51.0 % 11/07/2024 12:39 PM EDT [facility] MCV 95.6 80.0 - 100.0 fL 11/07/2024 12:39 PM EDT [facility] MCH 30.2 26.0 - 34.0 pg 11/07/2024 12:39 PM EDT [facility] MCHC 31.6 30.5 - 36.0 g/dL 11/07/2024 12:39 PM EDT [facility] RDW-CV 17.9(H) 11.5 - 15.0 % 11/07/2024 12:39 PM EDT [facility] Platelet Count 580(H) 150 - 400 k/uL 11/07/2024 12:39 PM EDT [facility] MPV 9.3 9.0 - 12.7 fL 11/07/2024 12:39 PM EDT [facility] NRBC 0.0 /100 WBC 11/07/2024 12:39 PM EDT [facility] Absolute nRBC <0.01 <0.01 k/uL 11/07/2024 12:39 PM EDT [facility] Neutrophils % 76.0 % 11/07/2024 12:39 PM EDT [facility] Abs Neut (Segs + Bands) 2.40 1.45 - 7.50 k/uL 11/07/2024 12:39 PM EDT [facility] Lymphocytes % 14.0 % 11/07/2024 12:39 PM EDT [facility] Abs Lymph (Normal + Reactive) 0.44(L) 1.00 - 4.00 k/uL 11/07/2024 12:39 PM EDT [facility] Monocytes % 5.0 % 11/07/2024 12:39 PM EDT [facility] Abs [place] 0.16 <0.87 k/uL 11/07/2024 12:39 PM EDT [facility] Eosin% 1.0 % 11/07/2024 12:39 PM EDT [facility] Abs Eosin 0.03 <0.46 k/uL 11/07/2024 12:39 PM EDT [facility] Basophils % 3.0 % 11/07/2024 12:39 PM EDT [facility] Abs Baso 0.09 <0.11 k/uL 11/07/2024 12:39 PM EDT [facility] [place] % 1.0 % 11/07/2024 12:39 PM EDT [facility] Left Shift Present 11/07/2024 12:39 PM EDT [facility] Platelet Estimate Increased 11/07/2024 12:39 PM EDT [facility] Red Cell Morph Reviewed: see results of individual morphologies 11/07/2024 12:39 PM EDT [facility] Anisocytosis Present 11/07/2024 12:39 PM EDT [facility] Diff Type Manual 11/07/2024 12:39 PM EDT [facility] Blood BLOOD SPECIMEN / Unknown 11/07/2024 10:56 AM EDT 11/07/2024 11:44 AM EDT Narrative [facility] - 11/07/2024 12:39 PM EDT This is an appended report. These results have been appended to a previously verified report. [facility] Final Result Performing Organization Address [facility] Co de Phone Number [facility] [address] [place] [address], * (ABNORMAL) NT PRO BNP (11/07/2024 10:56 AM EDT) NT Pro BNP 365(H) <125 pg/mL 11/07/2024 12:15 PM EDT [facility] Blood BLOOD SPECIMEN / Unknown 11/07/2024 10:56 AM EDT 11/07/2024 11:40 AM EDT [facility]ORATORY Final Result Performing Organization Address [facility] de Phone Number [facility] [address] [place] [address], * TACROLIMUS/FK-506 BL (11/07/2024 10:56 AM EDT) Tacrolimus/FK506 8.6 5.0 - 20.0 ng/mL 11/07/2024 7:56 PM EDT [facility] Comment:Individualized targe t levels for a given patient will depend [...] situation. Test performed by chemiluminescent immunoassay using [employer] i. Blood BLOOD SPECIMEN / Unknown Venipuncture / Unknown 11/07/2024 10:56 AM EDT 11/07/2024 11:38 AM EDT [facility] LABORATORY Final Result [facility] [address] [place] [address], [place] * PHOSPHORUS INORGANIC (11/07/2024 10:56 AM EDT) Phosphorus 4.6 2.7 - 4.8 mg/dL 11/07/2024 12:00 PM EDT [facility] Blood BLOOD SPECIMEN / Unknown 11/07/2024 10:56 AM EDT 11/07/2024 11:39 AM EDT [facility] LABORATORY Final Result Performing Organization Address [facility] de Phone Number [facility] [address] [place] [address], [place] * (ABNORMAL) CREATINE KINASE/CK (11/04/2024 5:10 AM EDT) CK 10(L) 51 - 298 U/L 11/04/2024 12:03 PM EDT [facility] Blood BLOOD SPECIMEN / Unknown Venipuncture / Unknown 11/04/2024 5:10 AM EDT 11/04/2024 9:37 AM EDT [facility] LABORATORY Final Result Performing Organization Address City/[facility] Co de Phone Number [facility] [address] [place] [address], [place] * (ABNORMAL) MAGNESIUM (11/04/2024 5:10 AM EDT) Magnesium 1.6(L) 1.7 - 2.3 mg/dL 11/04/2024 12:03 PM EDT [facility] Blood BLOOD SPECIMEN / Unknown Venipuncture / Unknown 11/04/2024 5:10 AM EDT 11/04/2024 9:37 AM EDT [facility] LABORATORY Final Result Performing Organization Address [facility] de Phone Number [facility] [address] [place] [address], [place] * (ABNORMAL) GGT (11/04/2024 5:10 AM EDT) GGT 114(H) 10 - 70 U/L 11/04/2024 2:04 PM EDT [facility] Blood BLOOD SPECIMEN / Unknown Venipuncture / Unknown 11/04/2024 5:10 AM EDT 11/04/2024 9:37 AM EDT [facility] Final Result Performing Organization Address [facility] de Phone Number [facility] [address] [address], [place] * (ABNORMAL) C-REACTIVE PROTEIN (11/04/2024 5:10 AM EDT) CRP 20.3(H) <0.9 mg/dL 11/04/2024 12:03 PM EDT [facility] Blood BLOOD SPECIMEN / Unknown Venipuncture / Unknown 11/04/2024 5:10 AM EDT 11/04/2024 9:37 AM EDT [facility] Final Result Performing Organization Address City/[facility] de Phone Number [facility] [address] [place] [address], [place] * (ABNORMAL) COMPREHENSIVE METABOLIC PANEL (11/04/2024 5:10 AM EDT) Protein, Total 5.2(L) 6.3 - 8.0 g/dL 11/04/2024 12:03 PM EDT [facility] Albumin 2.6(L) 3.9 - 4.9 g/dL 11/04/2024 12:03 PM [facility] Calcium, Total 8.5 8.5 - 10.2 mg/dL 11/04/2024 12:03 PM [facility] Bilirubin, Total 0.3 0.2 - 1.3 mg/dL 11/04/2024 12:03 PM [facility] Alkaline Phosphatase 165(H) 38 - 113 U/L 11/04/2024 12:03 PM [facility] AST 17 14 - 40 U/L 11/04/2024 12:03 PM [facility] ALT 10 10 - 54 U/L 11/04/2024 12:03 PM [facility] Glucose 88 74 - 99 mg/dL 11/04/2024 12:03 PM [facility] Comment: The [place] Diabetes Association (ADA) provides guidance for cutoff [...] Standards of Medical Care in Diabetes 2016, [place] Diabetes Association. Diabetes Care. 2016.39(Suppl 1). BUN 10 9 - 24 mg/dL 11/04/2024 12:03 PM [facility] Creatinine 0.99 0.73 - 1.22 mg/dL 11/04/2024 12:03 PM [facility] Sodium 134(L) 136 - 144 mmol/L 11/04/2024 12:03 PM [facility] Potassium 5.0 3.7 - 5.1 mmol/L 11/04/2024 12:03 PM [facility] Chloride 98 98 - 107 mmol/L 11/04/2024 12:03 PM [facility] CO2 25 22 - 30 mmol/L 11/04/2024 12:03 PM [facility] Anion Gap 11 8 - 15 mmol/L 11/04/2024 12:03 PM EDT [facility] Estimated Glomerular Filtration Rate 81 >=60 mL/min/1. 73m 11/04/2024 12:03 PM EDT [facility] Comment:Estimated Glomerular Filtration Rate (eGFR) is calculated using the 2020 CKD-EPI creatinine equation. This equation utilizes serum creatinine, sex, and age as parameters. The creatinine assay has traceable calibration to isotope dilution- mass spectrometry. Refer to KDIGO guidelines for clinical interpretation. In patients with unstable renal function, e.g. those with acute kidney injury, the eGFR may not accurately reflect actual GFR. Blood BLOOD SPECIMEN / Unknown Venipuncture / Unknown 11/04/2024 5:10 AM EDT 11/04/2024 9:37 AM EDT [facility] LABORATORY Final Result Performing Organization Address [facility] de Phone Number [facility] [address] [place] [address], [place] * CYTOMEGALOVIRUS (CMV) DNA, QUANTITATIVE PCR, PLASMA (11/04/2024 5:10 AM EDT) CMV DNA Not detected Not Detected MIKA SAV [id number] 11/04/2024 9:29 PM EDT [facility] Blood BLOOD SPECIMEN / Unknown Venipuncture / Unknown 11/04/2024 5:10 AM EDT 11/04/2024 9:37 AM EDT Narrative [facility] - 11/04/2024 9:29 PM EDT sav CMV is an in vitro nucleic acid amplification test for the quantitation of cytomegalovirus (CMV) DNA in human EDTA plasma. The linear range of the assay is 34.5 to 10,000,000 IU/mL (1.54 - 7.00 log IU/mL). The lower limit of detection of the assay is 34.5 IU/mL. [facility] LABORATORY Final Result Performing Organization Address [facility] Co de Phone Number [facility] [address] [address], [place] * (ABNORMAL) COMPLETE BLOOD COUNT AND DIFFERENTIAL (11/04/2024 5:10 AM EDT) WBC 3.31(L) 3.70 - 11.00 k/uL 11/04/2024 11:46 AM [facility] RBC 2.56(L) 4.20 - 6.00 m/uL 11/04/2024 11:46 AM [facility] Hemoglobin 7.6(L) 13.0 - 17.0 g/dL 11/04/2024 11:46 AM [facility] Hematocrit 24.5(L) 39.0 - 51.0 % 11/04/2024 11:46 AM [facility] MCV 95.7 80.0 - 100.0 fL 11/04/2024 11:46 AM [facility] MCH 29.7 26.0 - 34.0 pg 11/04/2024 11:46 AM [facility] MCHC 31.0 30.5 - 36.0 g/dL 11/04/2024 11:46 AM [facility] RDW-CV 17.3(H) 11.5 - 15.0 % 11/04/2024 11:46 AM [facility] Platelet Count 554(H) 150 - 400 k/uL 11/04/2024 11:46 AM [facility] MPV 8.9(L) 9.0 - 12.7 fL 11/04/2024 11:46 AM [facility] NRBC 0.0 /100 WBC 11/04/2024 11:46 AM [facility] Absolute nRBC <0.01 <0.01 k/uL 11/04/2024 11:46 AM [facility] Neutrophils % 73.0 % 11/04/2024 11:46 AM [facility] Abs Neut (Segs + Bands) 2.42 1.45 - 7.50 k/uL 11/04/2024 11:46 AM [facility] Lymphocytes % 15.0 % 11/04/2024 11:46 AM [facility] Abs Lymph (Normal + Reactive) 0.50(L) 1.00 - 4.00 k/uL 11/04/2024 11:46 AM [facility] Monocytes % 7.0 % 11/04/2024 11:46 AM EDT [facility] Abs [place] 0.23 <0.87 k/uL 11/04/2024 11:46 AM EDT [facility] Eosin% 1.0 % 11/04/2024 11:46 AM EDT [facility] Abs Eosin 0.03 <0.46 k/uL 11/04/2024 11:46 AM EDT [facility] Basophils % 2.0 % 11/04/2024 11:46 AM EDT [facility] Abs Baso 0.07 <0.11 k/uL 11/04/2024 11:46 AM EDT [facility] [place] % 2.0 % 11/04/2024 11:46 AM EDT [facility] Left Shift Present 11/04/2024 11:46 AM EDT [facility] Platelet Estimate Increased 11/04/2024 11:46 AM EDT [facility] Red Cell Morph Reviewed: see results of individual morphologies 11/04/2024 11:46 AM EDT [facility] Anisocytosis Present 11/04/2024 11:46 AM EDT [facility] Ovalocytes Few 11/04/2024 11:46 AM EDT [facility] Diff Type Manual 11/04/2024 11:46 AM EDT [facility] Blood BLOOD SPECIMEN / Unknown Venipuncture / Unknown 11/04/2024 5:10 AM EDT 11/04/2024 9:37 AM EDT Narrative [facility] - 11/04/2024 11:46 AM EDT This is an appended report. These results have been appended to a previously verified report. Jonathan Cruz DO LABORATORY Final Result [facility] [address] [place] [address], * (ABNORMAL) NT PRO BNP (11/04/2024 5:10 AM EDT) NT Pro BNP 444(H) <125 pg/mL 11/04/2024 11:36 AM EDT [facility] Blood BLOOD SPECIMEN / Unknown Venipuncture / Unknown 11/04/2024 5:10 AM EDT 11/04/2024 9:37 AM EDT Jonathan Cruz DO LABORATORY Final Result Performing Organization Address [facility] Co de Phone Number [facility] [address] [place] [address], [place] * TACROLIMUS/FK-506 BL (11/04/2024 5:10 AM EDT) Tacrolimus/FK506 13.8 5.0 - 20.0 ng/mL 11/04/2024 7:52 PM EDT [facility] Comment:Individualized targe t levels for a given patient will depend [...] situation. Test performed by chemiluminescent immunoassay using [employer] i. Blood BLOOD SPECIMEN / Unknown Venipuncture / Unknown 11/04/2024 5:10 AM EDT 11/04/2024 9:37 AM EDT Jonathan Cruz DO LABORATORY Final Result Performing Organization Address [facility] de Phone Number [facility] [address] [address], [place] * (ABNORMAL) PHOSPHORUS INORGANIC (11/04/2024 5:10 AM EDT) Phosphorus 4.9(H) 2.7 - 4.8 mg/dL 11/04/2024 11:58 AM EDT [facility] Blood BLOOD SPECIMEN / Unknown Venipuncture / Unknown 11/04/2024 5:10 AM EDT 11/04/2024 9:37 AM EDT Jonathan Nurari LABORATORY Final Result Performing Organization Address City/[facility] Co de Phone Number [facility] [address] [place] [address], [place] * (ABNORMAL) COMPLETE BLOOD COUNT AND DIFFERENTIAL (11/02/2024 6:40 AM EDT) WBC 4.05 3.70 - 11.00 k/uL 11/02/2024 8:43 AM [facility] RBC 2.77(L) 4.20 - 6.00 m/uL 11/02/2024 8:43 AM [facility] Hemoglobin 8.3(L) 13.0 - 17.0 g/dL 11/02/2024 8:43 AM [facility] Hematocrit 25.9(L) 39.0 - 51.0 % 11/02/2024 8:43 AM [facility] MCV 93.5 80.0 - 100.0 fL 11/02/2024 8:43 AM [facility] MCH 30.0 26.0 - 34.0 pg 11/02/2024 8:43 AM [facility] MCHC 32.0 30.5 - 36.0 g/dL 11/02/2024 8:43 AM [facility] RDW-CV 17.2(H) 11.5 - 15.0 % 11/02/2024 8:43 AM [facility] Platelet Count 570(H) 150 - 400 k/uL 11/02/2024 8:43 AM [facility] MPV 8.8(L) 9.0 - 12.7 fL 11/02/2024 8:43 AM [facility] NRBC 0.0 /100 WBC 11/02/2024 8:43 AM [facility] Absolute nRBC <0.01 <0.01 k/uL 11/02/2024 8:43 AM [facility] Neutrophils % 91.0 % 11/02/2024 8:43 AM [facility] Abs Neut (Segs + Bands) 3.69 1.45 - 7.50 k/uL 11/02/2024 8:43 AM [facility] Lymphocytes % 6.0 % 11/02/2024 8:43 AM [facility] Abs Lymph (Normal + Reactive) 0.24(L) 1.00 - 4.00 k/uL 11/02/2024 8:43 AM [facility] Monocytes % 3.0 % 11/02/2024 8:43 AM EDT [facility] Abs [place] 0.12 <0.87 k/uL 11/02/2024 8:43 AM EDT [facility] Eosin% 0.0 % 11/02/2024 8:43 AM EDT [facility] Abs Eosin 0.00 <0.46 k/uL 11/02/2024 8:43 AM EDT [facility] Basophils % 0.0 % 11/02/2024 8:43 AM EDT [facility] Abs Baso 0.00 <0.11 k/uL 11/02/2024 8:43 AM EDT [facility] Platelet Estimate Increased 11/02/2024 8:43 AM EDT [facility] Red Cell Morph Reviewed: see results of individual morphologies 11/02/2024 8:43 AM EDT [facility] Anisocytosis Present 11/02/2024 8:43 AM EDT [facility] Ovalocytes Few 11/02/2024 8:43 AM EDT [facility] Diff Type Manual 11/02/2024 8:43 AM EDT [facility] Blood BLOOD SPECIMEN / Unknown Venipuncture / Unknown 11/02/2024 6:40 AM EDT 11/02/2024 7:55 AM EDT Narrative [facility] - 11/02/2024 8:43 AM EDT This is an appended report. These results have been appended to a previously verified report. us Albert Meyers APRN.[facility] Final Re sult [facility] [address] [place] [address], * (ABNORMAL) MAGNESIUM (11/02/2024 6:40 AM EDT) Magnesium 1.5(L) 1.7 - 2.3 mg/dL 11/02/2024 8:37 AM EDT [facility] Blood BLOOD SPECIMEN / Unknown Venipuncture / Unknown 11/02/2024 6:40 AM EDT 11/02/2024 7:55 AM EDT us Albert Meyers [employer] TECH.[employer] [facility] Final Re sult [facility] [address] [place] [address], * (ABNORMAL) RENAL FUNCTION PANEL (11/02/2024 6:40 AM EDT) Albumin 2.6(L) 3.9 - 4.9 g/dL 11/02/2024 8:37 AM EDT [facility] Calcium, Total 8.5 8.5 - 10.2 mg/dL 11/02/2024 8:37 AM EDT [facility] Phosphorus 4.2 2.7 - 4.8 mg/dL 11/02/2024 8:37 AM EDT [facility] Glucose 107(H) 74 - 99 mg/dL 11/02/2024 8:37 AM [facility] Comment: The [place] Diabetes Association (ADA) provides guidance for cutoff [...] Standards of Medical Care in Diabetes 2016, [place] Diabetes Association. Diabetes Care. 2016.39(Suppl 1). BUN 7(L) 9 - 24 mg/dL 11/02/2024 8:37 AM EDT [facility] Creatinine 0.84 0.73 - 1.22 mg/dL 11/02/2024 8:37 AM EDT [facility] Sodium 134(L) 136 - 144 mmol/L 11/02/2024 8:37 AM EDT [facility] Potassium 4.7 3.7 - 5.1 mmol/L 11/02/2024 8:37 AM EDT [facility] Chloride 99 98 - 107 mmol/L 11/02/2024 8:37 AM EDT [facility] CO2 25 22 - 30 mmol/L 11/02/2024 8:37 AM EDT [facility] Anion Gap 10 8 - 15 mmol/L 11/02/2024 8:37 AM EDT [facility] Estimated Glomerular Filtration Rate 93 >=60 mL/min/1. 73m 11/02/2024 8:37 AM EDT [facility] Comment:Estimated Glomerular Filtration Rate (eGFR) is calculated using the 2020 CKD-EPI creatinine equation. This equation utilizes serum creatinine, sex, and age as parameters. The creatinine assay has traceable calibration to isotope dilution- mass spectrometry. Refer to KDIGO guidelines for clinical interpretation. In patients with unstable renal function, e.g. those with acute kidney injury, the eGFR may not accurately reflect actual GFR. Blood BLOOD SPECIMEN / Unknown Venipuncture / Unknown 11/02/2024 6:40 AM EDT 11/02/2024 7:55 AM EDT Albert Meyers APRN.CNP LABORATORY Final Re sult Performing Organization Address [facility] Co de Phone Number [facility] [address] [place] [address], * (ABNORMAL) NT PRO BNP (11/01/2024 5:01 AM EDT) NT Pro BNP 480(H) <125 pg/mL 11/01/2024 8:20 AM EDT [facility] Blood BLOOD SPECIMEN / Unknown Venipuncture / Unknown 11/01/2024 5:01 AM EDT 11/01/2024 7:20 AM EDT us Chelsea Trinidad MD LABORATORY Final Result Performing Organization Address City/[facility]/[place] [address], * VITAMIN B12 (11/01/2024 5:01 AM EDT) Vitamin B12 878 232 - 1,245 pg/mL 11/01/2024 9:40 AM EDT [facility] Blood BLOOD SPECIMEN / Unknown Venipuncture / Unknown 11/01/2024 5:01 AM EDT 11/01/2024 7:20 AM EDT us Chelsea Trinidad MD LABORATORY Final Result Performing Organization Address [facility] de Phone Number [facility] [address] [place] [address], [place] * FOLATE, SERUM (11/01/2024 5:01 AM EDT) Folate 9.2 >4.7 ng/mL 11/01/2024 9:40 AM EDT [facility] Blood BLOOD SPECIMEN / Unknown Venipuncture / Unknown 11/01/2024 5:01 AM EDT 11/01/2024 7:20 AM EDT Chelsea Trinidad MD LABORATORY Final Result Performing Organization Address [facility] de Phone Number [facility] [address] [place] [address], [place] * (ABNORMAL) FERRITIN (11/01/2024 5:01 AM EDT) Ferritin 5,826.0(H) 30.3 - 565.7 ng/mL 11/01/2024 10:23 AM EDT [facility] Blood BLOOD SPECIMEN / Unknown Venipuncture / Unknown 11/01/2024 5:01 AM EDT 11/01/2024 7:20 AM EDT Chelsea Trinidad MD LABORATORY Final Result Performing Organization Address [facility] de Phone Number [facility] [id number] [place] [address], [place] * (ABNORMAL) IRON AND TIBC (11/01/2024 5:01 AM EDT) Iron 28(L) 41 - 186 ug/dL 11/01/2024 9:26 AM EDT [facility] TIBC 74(L) 232 - 386 ug/dL 11/01/2024 9:26 AM EDT [facility] Transferrin Saturation 37.8 20.0 - 55.0 % 11/01/2024 9:26 AM EDT [facility] Blood BLOOD SPECIMEN / Unknown Venipuncture / Unknown 11/01/2024 5:01 AM EDT 11/01/2024 7:20 AM EDT us Chelsea Trinidad MD LABORATORY Final Result [facility] [address] [place] [address], * (ABNORMAL) COMPLETE BLOOD COUNT AND DIFFERENTIAL (11/01/2024 5:01 AM EDT) WBC 4.38 3.70 - 11.00 k/uL 11/01/2024 8:21 AM EDT [facility] RBC 2.75(L) 4.20 - 6.00 m/uL 11/01/2024 8:21 AM EDT [facility] Hemoglobin 8.2(L) 13.0 - 17.0 g/dL 11/01/2024 8:21 AM EDT [facility] Hematocrit 26.3(L) 39.0 - 51.0 % 11/01/2024 8:21 AM [facility] MCV 95.6 80.0 - 100.0 fL 11/01/2024 8:21 AM EDT [facility] MCH 29.8 26.0 - 34.0 pg 11/01/2024 8:21 AM EDT [facility] MCHC 31.2 30.5 - 36.0 g/dL 11/01/2024 8:21 AM EDT [facility] RDW-CV 17.6(H) 11.5 - 15.0 % 11/01/2024 8:21 AM [facility] Platelet Count 565(H) 150 - 400 k/uL 11/01/2024 8:21 AM EDT [facility] MPV 9.0 9.0 - 12.7 fL 11/01/2024 8:21 AM EDT [facility] NRBC 0.0 /100 WBC 11/01/2024 8:21 AM EDT [facility] Absolute nRBC <0.01 <0.01 k/uL 11/01/2024 8:21 AM EDT [facility] Neutrophils % 89.0 % 11/01/2024 8:21 AM EDT [facility] Abs Neut (Segs + Bands) 3.90 1.45 - 7.50 k/uL 11/01/2024 8:21 AM EDT [facility] Lymphocytes % 5.0 % 11/01/2024 8:21 AM EDT [facility] Abs Lymph (Normal + Reactive) 0.22(L) 1.00 - 4.00 k/uL 11/01/2024 8:21 AM EDT [facility] Monocytes % 2.0 % 11/01/2024 8:21 AM EDT [facility] Abs [place] 0.09 <0.87 k/uL 11/01/2024 8:21 AM EDT [facility] Eosin% 1.0 % 11/01/2024 8:21 AM EDT [facility] Abs Eosin 0.04 <0.46 k/uL 11/01/2024 8:21 AM EDT [facility] Basophils % 2.0 % 11/01/2024 8:21 AM EDT [facility] Abs Baso 0.09 <0.11 k/uL 11/01/2024 8:21 AM EDT [facility] [place] % 1.0 % 11/01/2024 8:21 AM EDT [facility] Left Shift Present 11/01/2024 8:21 AM EDT [facility] Platelet Estimate Increased 11/01/2024 8:21 AM EDT [facility] Red Cell Morph Reviewed: see results of individual morphologies 11/01/2024 8:21 AM EDT [facility] Anisocytosis Present 11/01/2024 8:21 AM EDT [facility] Ovalocytes Few 11/01/2024 8:21 AM EDT [facility] RBC Fragments Few(A) None Seen 11/01/2024 8:21 AM EDT [facility] Diff Type Manual 11/01/2024 8:21 AM EDT [facility] Blood BLOOD SPECIMEN / Unknown Venipuncture / Unknown 11/01/2024 5:01 AM EDT 11/01/2024 7:20 AM EDT [facility] - 11/01/2024 8:21 AM EDT This is an appended report. These results have been appended to a previously verified report. us Albert Meyers [employer]URING TECH.[employer] [facility] Final Re sult [facility] [address] [place] [address], [place] * (ABNORMAL) RENAL FUNCTION PANEL (11/01/2024 5:01 AM EDT) Albumin 2.6(L) 3.9 - 4.9 g/dL 11/01/2024 8:20 AM [facility] Calcium, Total 8.5 8.5 - 10.2 mg/dL 11/01/2024 8:20 AM [facility] Phosphorus 4.2 2.7 - 4.8 mg/dL 11/01/2024 8:20 AM [facility] Glucose 101(H) 74 - 99 mg/dL 11/01/2024 8:20 AM [facility] Comment: The [place] Diabetes Association (ADA) provides guidance for cutoff [...] Standards of Medical Care in Diabetes 2016, [place] Diabetes Association. Diabetes Care. 2016.39(Suppl 1). BUN 7(L) 9 - 24 mg/dL 11/01/2024 8:20 AM [facility] Creatinine 0.88 0.73 - 1.22 mg/dL 11/01/2024 8:20 AM [facility] Sodium 137 136 - 144 mmol/L 11/01/2024 8:20 AM [facility] Potassium 5.0 3.7 - 5.1 mmol/L 11/01/2024 8:20 AM [facility] Chloride 100 98 - 107 mmol/L 11/01/2024 8:20 AM [facility] CO2 26 22 - 30 mmol/L 11/01/2024 8:20 AM [facility] Anion Gap 11 8 - 15 mmol/L 11/01/2024 8:20 AM [facility] Estimated Glomerular Filtration Rate 92 >=60 mL/min/1. 73m 11/01/2024 8:20 AM EDT [facility] Comment:Estimated Glomerular Filtration Rate (eGFR) is calculated using the 2020 CKD-EPI creatinine equation. This equation utilizes serum creatinine, sex, and age as parameters. The creatinine assay has traceable calibration to isotope dilution- mass spectrometry. Refer to KDIGO guidelines for clinical interpretation. In patients with unstable renal function, e.g. those with acute kidney injury, the eGFR may not accurately reflect actual GFR. Blood BLOOD SPECIMEN / Unknown Venipuncture / Unknown 11/01/2024 5:01 AM EDT 11/01/2024 7:20 AM EDT Albert Meyers [employer]URING TECH.[employer] [facility] Final Re sult Performing Organization Address [facility]/[place] [address], [place] * MAGNESIUM (11/01/2024 5:01 AM EDT) Magnesium 1.8 1.7 - 2.3 mg/dL 11/01/2024 8:20 AM EDT [facility] Blood BLOOD SPECIMEN / Unknown Venipuncture / Unknown 11/01/2024 5:01 AM EDT 11/01/2024 7:20 AM EDT Luís Bobby MD LABORATORY Final Result Performing Organization Address [facility] de Phone Number [facility] [address] [place] [address], * (ABNORMAL) NT PRO BNP (10/31/2024 4:52 AM EDT) NT Pro BNP 462(H) <125 pg/mL 10/31/2024 10:52 AM EDT [facility] Blood BLOOD SPECIMEN / Unknown Venipuncture / Unknown 10/31/2024 4:52 AM EDT 10/31/2024 9:02 AM EDT Jonathan Cruz DO LABORATORY Final Result Performing Organization Address [facility] Co de Phone Number [facility] [address] [place], [place] [id number], [place] * PHOSPHORUS INORGANIC (10/31/2024 4:52 AM EDT) Phosphorus 4.1 2.7 - 4.8 mg/dL 10/31/2024 10:46 AM EDT [facility] Blood BLOOD SPECIMEN / Unknown Venipuncture / Unknown 10/31/2024 4:52 AM EDT 10/31/2024 9:02 AM EDT [facility]ATORY Final Result Performing Organization Address [facility]/ZIP Co de Phone Number [facility] [address] [place] [address], [place] * (ABNORMAL) TACROLIMUS/FK-506 BL (10/31/2024 4:52 AM EDT) Pathologist [facility] Tacrolimus/[id number] 3.5(L) 5.0 - 20.0 ng/mL 10/31/2024 7:19 PM EDT [facility] Comment:Individualized targe t levels for a given patient will depend [...] situation. Test performed by chemiluminescent immunoassay using [employer] i. Blood BLOOD SPECIMEN / Unknown Venipuncture / Unknown 10/31/2024 4:52 AM EDT 10/31/2024 9:02 AM EDT [facility]ORATORY Final Result Performing Organization Address [facility]/ZIP Co de Phone Number [facility] [address] [address], [place] * (ABNORMAL) C-REACTIVE PROTEIN (10/31/2024 4:52 AM EDT) CRP 23.3(H) <0.9 mg/dL 10/31/2024 11:16 AM EDT [facility] Blood BLOOD SPECIMEN / Unknown Venipuncture / Unknown 10/31/2024 4:52 AM EDT 10/31/2024 9:02 AM EDT Jonathan Cruz DO LABORATORY Final Result Performing Organization Address [facility]/RUST de Phone Number [facility] [address] [place] [address], [place] * (ABNORMAL) GGT (10/31/2024 4:52 AM EDT) GGT 111(H) 10 - 70 U/L 10/31/2024 3:07 PM EDT [facility] Blood BLOOD SPECIMEN / Unknown Venipuncture / Unknown 10/31/2024 4:52 AM EDT 10/31/2024 9:02 AM EDT Jonathan Cruz DO LABORATORY Final Result Performing Organization Address [facility] de Phone Number [facility] [address] [address], [place] * (ABNORMAL) MAGNESIUM (10/31/2024 4:52 AM EDT) Magnesium 1.6(L) 1.7 - 2.3 mg/dL 10/31/2024 11:16 AM EDT [facility] Blood BLOOD SPECIMEN / Unknown Venipuncture / Unknown 10/31/2024 4:52 AM EDT 10/31/2024 9:02 AM EDT Jonathan Cruz DO LABORATORY Final Result Performing Organization Address [facility] de Phone Number [facility] [address] [place] [address], [place] * (ABNORMAL) COMPREHENSIVE METABOLIC PANEL (10/31/2024 4:52 AM EDT) Protein, Total 5.0(L) 6.3 - 8.0 g/dL 10/31/2024 11:16 AM EDT [facility] Albumin 2.4(L) 3.9 - 4.9 g/dL 10/31/2024 11:16 AM [facility] Calcium, Total 8.1(L) 8.5 - 10.2 mg/dL 10/31/2024 11:16 AM [facility] Bilirubin, Total 0.3 0.2 - 1.3 mg/dL 10/31/2024 11:16 AM [facility] Alkaline Phosphatase 158(H) 38 - 113 U/L 10/31/2024 11:16 AM [facility] AST 16 14 - 40 U/L 10/31/2024 11:16 AM [facility] ALT 8(L) 10 - 54 U/L 10/31/2024 11:16 AM [facility] Glucose 82 74 - 99 mg/dL 10/31/2024 11:16 AM [facility] Comment: The [place] Diabetes Association (ADA) provides guidance for cutoff [...] Standards of Medical Care in Diabetes 2016, [place] Diabetes Association. Diabetes Care. 2016.39(Suppl 1). BUN 8(L) 9 - 24 mg/dL 10/31/2024 11:16 AM [facility] Creatinine 0.82 0.73 - 1.22 mg/dL 10/31/2024 11:16 AM [facility] Sodium 136 136 - 144 mmol/L 10/31/2024 11:16 AM [facility] Potassium 5.1 3.7 - 5.1 mmol/L 10/31/2024 11:16 AM [facility] Chloride 102 98 - 107 mmol/L 10/31/2024 11:16 AM [facility] CO2 22 22 - 30 mmol/L 10/31/2024 11:16 AM [facility] Anion Gap 12 8 - 15 mmol/L 10/31/2024 11:16 AM EDT [facility] Estimated Glomerular Filtration Rate 94 >=60 mL/min/1. 73m 10/31/2024 11:16 AM EDT [facility] Comment:Estimated Glomerular Filtration Rate (eGFR) is calculated using the 2020 CKD-EPI creatinine equation. This equation utilizes serum creatinine, sex, and age as parameters. The creatinine assay has traceable calibration to isotope dilution- mass spectrometry. Refer to KDIGO guidelines for clinical interpretation. In patients with unstable renal function, e.g. those with acute kidney injury, the eGFR may not accurately reflect actual GFR. Blood BLOOD SPECIMEN / Unknown Venipuncture / Unknown 10/31/2024 4:52 AM EDT 10/31/2024 9:02 AM EDT Jonathan Cruz DO LABORATORY Final Result [facility] [address] [place] [address], * (ABNORMAL) COMPLETE BLOOD COUNT AND DIFFERENTIAL (10/31/2024 4:52 AM EDT) WBC 5.03 3.70 - 11.00 k/uL 10/31/2024 10:51 AM [facility] RBC 2.61(L) 4.20 - 6.00 m/uL 10/31/2024 10:51 AM [facility] Hemoglobin 7.9(L) 13.0 - 17.0 g/dL 10/31/2024 10:51 AM [facility] Hematocrit 25.1(L) 39.0 - 51.0 % 10/31/2024 10:51 AM [facility] MCV 96.2 80.0 - 100.0 fL 10/31/2024 10:51 AM EDT [facility] MCH 30.3 26.0 - 34.0 pg 10/31/2024 10:51 AM [facility] MCHC 31.5 30.5 - 36.0 g/dL 10/31/2024 10:51 AM [facility] RDW-CV 17.3(H) 11.5 - 15.0 % 10/31/2024 10:51 AM EDT [facility] Platelet Count 526(H) 150 - 400 k/uL 10/31/2024 10:51 AM [facility] MPV 9.3 9.0 - 12.7 fL 10/31/2024 10:51 AM [facility] NRBC 0.0 /100 WBC 10/31/2024 10:51 AM [facility] Absolute nRBC <0.01 <0.01 k/uL 10/31/2024 10:51 AM [facility] Neutrophils % 94.0 % 10/31/2024 10:51 AM [facility] Abs Neut (Segs + Bands) 4.73 1.45 - 7.50 k/uL 10/31/2024 10:51 AM [facility] Lymphocytes % 4.0 % 10/31/2024 10:51 AM [facility] Abs Lymph (Normal + Reactive) 0.20(L) 1.00 - 4.00 k/uL 10/31/2024 10:51 AM [facility] Monocytes % 1.0 % 10/31/2024 10:51 AM [facility] Abs [place] 0.05 <0.87 k/uL 10/31/2024 10:51 AM [facility] Eosin% 1.0 % 10/31/2024 10:51 AM [facility] Abs Eosin 0.05 <0.46 k/uL 10/31/2024 10:51 AM [facility] Basophils % 0.0 % 10/31/2024 10:51 AM [facility] Abs Baso 0.00 <0.11 k/uL 10/31/2024 10:51 AM [facility] Platelet Estimate Increased 10/31/2024 10:51 AM [facility] Red Cell Morph Reviewed: see results of individual morphologies 10/31/2024 10:51 AM [facility] Anisocytosis Present 10/31/2024 10:51 AM [facility] Ovalocytes Few 10/31/2024 10:51 AM [facility] Diff Type Manual 10/31/2024 10:51 AM [facility] Blood BLOOD SPECIMEN / Unknown Venipuncture / Unknown 10/31/2024 4:52 AM EDT 10/31/2024 9:02 AM EDT Narrative [facility] - 10/31/2024 10:51 AM EDT This is an appended report. These results have been appended to a previously verified report. Jonathan Cruz DO LABORATORY Final Result [facility] [address] [place] [address], documented in this encounter Visit Diagnoses Not on filedocumented in this encounter Care Teams Watch Train Inspector Relationship Specialty Start Date End Date Rusty Delgado II, MD [address] [facility] [address] [place] [address] PCP - General Internal Medicine 05/28/24 Irena Johnson MD [address] [facility] [address] [place] [id number] Referring Gastroenterology 03/12/24 Vanessa Arora MD [address] [place], [place] [id number] Primary Staff Physician Cardiology 05/02/24 Carina Ziegler, RN [facility] [address] [place] [address] Registered Nurse Transplant Center 09/17/24 documented as of this encounter
--- OUTSIDE RECORDS SUMMARY | 2024-11-13 13:00 | XMS_ITS | Encounter Summary ---
Author Organization [facility] Address [facility] [place] [address] Care Team Providers Care Cosmetology Instructor Name Role Phone Irena Johnson MD Unavailable Vanessa Arora MD Unavailable [phone] Danny WONG MD, Rusty Gomez Primary Care Provider [phone] Carina Ziegler RN Unavailable Unavailable Source Comments In the event this information is protected by the Federal Confidentiality of Alcohol and Drug AbusePatient Records regulations: The Federal rules restrict any use of the information to criminally investigate or prosecute any alcohol or drug abuse patient.[facility] Reason for Visit * Outpatient Procedure (Routine) - Closed Specialty Diagnoses / Procedures Referred By Contac t Referred To Contact [facility] Diagnoses 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) Procedures ERCP ERCP BILIARY/PANC DUCT STENT EXCHANGE W/DIL&WIRE Desiree Cruz PA-C [address] [place] [address] Phone: tel: fax: [facility] [address] [place] [address] Referral ID Status Reason Start Date Expiration Date V isits Requested Visits Authorized [id number] Closed Auto-Generate d Referral 10/30/2024 10/30/2025 1 1 Encounter Details Date Type Department Care Team (Late st Contact Info) Description 11/13/2024 1:00 PM EDT - 11/13/2024 11:59 PM EDT Hospital Encounter Gastroenterology [address] [address] Jane Correia MD [address] [place] [address] 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, K83.1] Discharge Disposition: Home Social History Tobacco Use Types Packs/Day Years Used Date Smoking Tobacco: Former Cigarettes 20 1 04/20/1970 - 02/18/1991 Smokeless Tobacco: Never Tobacco Cessation:Counseling Given: Not Answered Alcohol Use Standard Drinks/Week Comments Not Currently 0 (1 standard drink = 0.6 oz pur e alcohol) Recovering alcoholic [facility] Utilities Answer Date Recorded In the past 12 months has th e [employer], gas, oil, or water [employer] threatened to shut off services in your [...] is lower risk 7 04/25/2024 Data from: https://www.neighborhoodatlas.medicine.[facility]/. 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 Not on file Not on file Not on file documented as of this encounter Last Filed Vital Signs Vital Sign Reading Time Taken Comments Blood Pressure 122/80 11/13/2024 5:30 PM EDT Pulse 74 11/13/2024 5:30 PM EDT Temperature 36.2 C (97.2 F) 11/13/2024 3:30 PM EDT Respiratory Rate 18 11/13/2024 5:30 PM EDT Oxygen Saturation 93% 11/13/2024 5:30 PM EDT Inhaled Oxygen Concentration - - Weight 68 kg (150 lb) 11/13/2024 2:26 PM EDT Height 175.3 cm (5' 9 ) 11/13/2024 2:26 PM EDT Body Mass Index 22.15 11/13/2024 2:26 PM EDT documented in this encounter Functional Status * Are you [...] of Assessment Author No 05/31/2024 4:27 PM Cceil Huntley RN * Do you have difficulty [...] tablet 11/15/2024 9:11 AM EDT 11/12/2024 11/30/19 acetaminophen (TYLENOL) 500 mg tablet Take 1 [...] hours. 09/27/2024 documented as of this encounter H&P Notes * Bebo Barker MD - 11/13/2024 1:00 PM EDT PROCEDURAL SEDATION HISTORY AND PHYSICAL EXAM SERVICE DATE: 11/13/2024 SERVICE TIME: 1426 Subjective HPI: This is a 69 year old male who presents with liver transplant, biliary stricture, choledocholithiasis PAST ANESTHESIA HISTORY:No history of adverse event PAST MEDICAL HISTORY Diagnosis Date Acute postoperative respiratory insufficiency 09/09/2024 PERLITA (acute kidney injury) 08/27/2024 Tipton's esophagus Chest pain on breathing 10/15/2024 GERD (gastroesophageal reflux disease) Gout History of transfusion HTN (hypertension) Hx of colonic polyps Hyperlipidemia Liver cirrhosis (HCC) Liver disease Osteoporosis Umbilical hernia PAST SURGICAL HISTORY Procedure Laterality Date CHOLECYSTECTOMY 04/17/2011 COLONOSCOPY every 3 years EGD every 3 years ELBOW SURGERY HX Right screw insertion Prior to Admission medications as of 11/13/24 1418 Medication Sig Last Dose Taking iv contrast (will be provided with radiology test) MRI C,T,L SPINE Inject, intravenously, once for 1 dose. No IV access, insert saline lock prior to the beginning of sedation, infusion, injection of imaging exam. Discontinue saline lock post exam. If Pt. has a central line or IVAD, may access for administration according to line specific nursing protocol. Once exam is complete flush line and de-access according to line specific nursing protocol in the MR contrast administration guidelines link. buprenorphine (BUTRANS) 10 mcg/hour transdermal patch Apply 1 patch as directed one time a week for30 days. On a Monday linaclotide (LINZESS) 145 mcg capsule Take 1 capsule by mouth once daily. -Take capsule on an emptystomach at least 30 minutes before a meal at the same time each day. Capsule should be swallowed whole. DO NOT chew or crush simethicone, chewable (MYLICON) 80 mg chewable tablet Take 1 tablet by mouth four times a day as needed. 9am,12n, 6pm, 9pm midodrine (PROAMATINE) 10 mg tablet Take 1 tablet by mouth three times a day. 9am, 12n, 6pm tamsulosin (FLOMAX) 0.4 mg Take 1 capsule by mouth daily at bedtime. melatonin 3 mg tablet Take 1 tablet by mouth daily at bedtime. oxyCODONE IR (ROXICODONE) 5 mg immediate release tablet Take 1 tablet by mouth two times a day for 14 days. FOR PAIN. acetaminophen (TYLENOL) 500 mg tablet Take 1 tablet by mouth every 6 hours as needed for pain. aspirin 81 mg chewable tablet Take 1 tablet by mouth once daily. famotidine (PEPCID) 20 mg tablet Take 1 tablet by mouth two times a day. magnesium oxide (MAG-OX) 400 mg (241.3 mg magnesium) tablet Take 2 tablets by mouth three times a day. 9am, 3pm, 9pm methocarbamol (ROBAXIN) 750 mg tablet Take 1 tablet by mouth two times a day. Mirtazapine (REMERON) 7.5 mg tablet Take 1 tablet by mouth daily at bedtime. multivitamin tablet Take 1 tablet by mouth once daily. pantoprazole DR (PROTONIX) 40 mg tablet Take 1 tablet by mouth once daily. sulfamethoxazole-trimethoprim (BACTRIM DS) 800-160 mg per tablet Take 1 tablet by mouth every Monday, Monday, and Monday. tacrolimus IR (PROGRAF) 5 mg capsule Take 1 capsule by mouth two times a day. traZODone (DESYREL) 50 mg tablet Take 1 tablet by mouth daily at bedtime. ursodiol (ACTIGALL) 300 mg capsule Take 1 capsule by mouth three times a day. acyclovir (ZOVIRAX) 400 mg tablet Take 1 tablet by mouth two times a day. furosemide (LASIX) 40 mg tablet Take 1 tablet by mouth once daily. Patient should start on October. benzonatate (TESSALON PERLE) 100 mg capsule Take 1 capsule by mouth three times a day as needed forcough. DAPTOmycin (CUBICIN) 700 mg/100 mL pgbk iv piggyback in NaCl 0.9% 100 mL Inject 100 mL intravenously every 24 hours for 14 days. polyethylene glycol 3350 17 gram packet Take 1 packet by mouth once daily. Dissolve dose in 4 - 8 ounces of liquid and take as directed. valGANciclovir (VALCYTE) 450 mg tablet Take 2 tablets by mouth two times a day with meals. heparin 5,000 unit/mL injection Inject 1 mL subcutaneously every 12 hours. ALLERGIES No Known Allergies CARDIOVASCULAR:No chest pain, leg swelling and palpitations PULMONARY:No cough,wheezing and shortness of breath Objective PHYSICAL EXAM:The remainder of the physical exam is noncontributory AIRWAY: Mouth opening greater than 3 fingerbreadths: Yes Neck Full Range of Motion: Yes LUNGS: Good diaphragmatic excursion CARDIAC: Regular rhythm,Regular rate Assessment/Plan ASA Class: 3 Patient OK for Sedation: Yes Sedation Goal: Deep Provisional Diagnosis/Treatment Plan: liver transplant, biliary stricture, choledocholithiasis/ ERCP Sedation Goal: Deep SIGNATURE: Bebo Barker MD PATIENT NAME: Charles Stewart DATE: November 13, 2024 TIME: 2:26 PM 2023 documented in this encounter Nursing Notes * Kassie Pimentel RN - 11/13/2024 5:42 PM EDT [facility]enny [facility] transport picked up pt to transport back to [facility]. * Kassie Pimentel RN - 11/13/2024 3:54 PM EDT Report called to [facility]. Per Benny Alatorre, pickling drum operator approximately 90 mins from 15:40 pm. * Kassie Pimentel RN - 11/13/2024 3:35 PM EDT AMBULATORY PATIENT EDUCATION NOTE TOPIC: GI PROCEDURES: Endoscopic Retrograde CholangioPancreatography(ERCP) with or without biopsy,stenting,dilation and/or treatment READINESS TO LEARN INSTRUCTION PROVIDED TO: Patient, readness to learn accessed prior to procedure COGNITIVE ABILITY: Alert and oriented PTED MOTIVATION TO LEARN: Interested FAMILY SUPPORT: Unable to assess - Family not present IPATIENT LEARNS BEST BY: Individual Instruction Written Instruction - Hand-outs Verbal Instruction FACTORS AFFECTING LEARNING: None PHYSICAL LIMITATIONS AFFECTING LEARNING: None LEARNING RESPONSE METHOD OF INSTRUCTION: Individual instruction PATIENT / FAMILY RESPONSE: Verbalizes understanding of: WORSENING CONDITION- Signs and symptoms of aworsening condition that warrant a call to the physician FOLLOW-UP PLAN: Patient instructed to call with any further issues Recommend - Recommend continued instruction and follow up as directed Contact information given. SUPPLEMENTAL MATERIAL: Procedure Discharge Instructions REFERRAL (RECOMMENDATION): None Electronically Signed By: aKssie Pimentel RN * Jose Juan Schuster RN - 11/13/2024 2:25 PM EDT PRE OP LEARNING ASSESSMENT PROCEDURE/SURGERY: GI PROCEDURES: ERCP READINESS TO LEARN COGNITIVE ABILITY: Alert and oriented MOTIVATION TO LEARN: Eager Interested FAMILY SUPPORT: Unable to assess - Family not present PATIENT LEARNS BEST BY: Individual Instruction Written Instruction - Hand-outs Verbal Instruction FACTORS AFFECTING LEARNING: None PHYSICAL LIMITATIONS AFFECTING LEARNING: None Electronically Signed By: Jose Juan Schuster RN In Department: GASTROENTEROLOGY documented in this encounter Plan of Treatment Upcoming Encounters Date Type Department Care Team (Late st Contact Info) Description 11/21/2024 4:00 PM EDT Office Visit Transplant Center [address] [place], [place] [id number] KAYLIE ARELLANO 11/21/2024 5:40 PM EDT Appointment MRI Q [address] [address] Compression fracture of cervical spine, non-traumatic, with delayed healing, subsequent encounter [M48.52XG] 11/21/2024 6:20 PM EDT Appointment MRI Q [address] [address] Compression fracture of cervical spine, non-traumatic, with delayed healing, subsequent encounter [M48.52XG] 11/21/2024 7:00 PM EDT Appointment MRI Q [address] [address] Compression fracture of cervical spine, non-traumatic, with delayed healing, subsequent encounter [M48.52XG] 02/03/2025 9:00 AM EDT [facility] [address] [place] [address] Devyn Roach MD [address] [place] [address] Vertigo [R42] 02/10/2025 11:00 AM EDT Appointment Gastroenterology [address] [address] Jane Correia MD [address] [place] [address] Schedule in about 3 months to remove biliary stent documented as of this encounter Goals Goal Patient Goal Type Associated Problems Recent Progress Patient-Stated? Author Blood Pressure < 130/80 Blood Pressure 122/80( 025 5:30 PM EDT) No Vanessa Arora MD documented as of this encounter Procedures Procedure Name Priority Date/Time Associated Diagnosis Comments ERCP Routine 11/13/2024 1:11 PM EDT documented in this encounter Results * ERCP (11/13/2024 1:11 PM EDT) Anatomical Region Laterality Modality Other 11/13/2024 1:11 PM EDT Narrative 11/13/2024 3:28 PM EDT Q3 Patient Name: Charles Stewart Procedure Date: 11/13/2024 1:11 PM Date of : 1955 Admit Type: Outpatient Age: 69 Gender: Male Note Status: Finalized Attending MD: Jane Correia MD, [id number] Procedure: ERCP Indications: Common bile duct stone(s), [...] administered by the anesthesia team. Findings: A consulting property manager film of the abdomen was obtained. Surgical [...] none. Recommendation: - Discharge patient to a jail. - Resume previous diet. - Cipro (ciprofloxacin) 500 mg PO BID for 5 days. - Repeat ERCP for stent removal n 3 months. Procedure Code(s): --- Professional --- 42996, Endoscopic retrograde cholangiopancreatography (ERCP); with removal of calculi/debris from biliary/pancreatic duct(s) [address], Endoscopic catheterization of the biliary ductal system, radiological supervision and interpretation Diagnosis Code(s): --- Professional --- Z96.89, Presence of other specified functional implants K80.51, Calculus of bile duct without cholangitis or cholecystitis with obstruction Z09, Encounter for follow-up examination after completed treatment for conditions other than malignant neoplasm Z94.4, Liver transplant status CPT copyright 2020 [employer]. All rights reserved. Attending Participation: I was present and participated during the entire procedure, including non-david portions. Scope In: 2:57:12 PM Scope Out: 3:17:12 PM MD Jane Alexander MD 11/13/2024 3:25:50 PM This report has been signed electronically by Jane Correia MD Number of Addenda: 0 Note Initiated On: 11/13/2024 1:11 PM Desiree Cruz PA-C [facility] Final Resu lt documented in this encounter Visit Diagnoses Not on filedocumented in this encounter Care Teams Cosmetology Instructor Relationship Specialty Start Date End Date Rusty Delgado II, MD [address] [facility] [address] [place] [address] PCP - General Internal Medicine 05/28/24 Irena Johnson MD [address] [facility] [address] [place] [phone] Referring Gastroenterology 03/12/24 Vanessa Arora MD [address] [place] [address] Primary Staff Physician Cardiology 05/02/24 Carina Ziegler, RN [facility] [address] [facility] [place] [address] Registered Nurse Transplant Center 09/17/24 documented as of this encounter
--- OUTSIDE RECORDS SUMMARY | 2024-11-13 14:42 | XMS_ITS | Encounter Summary ---
Author Organization [facility] Address [address] [place] [address] Care Team Providers Care Lending Activities Supervisor Name Role Phone Irena Johnson MD Unavailable Vanessa Arora MD Unavailable [phone] Danny WONG MD, Rusty Gomez Primary Care Provider [phone] Carina Ziegler RN Unavailable Unavailable Source Comments In the event this information is protected by the Federal Confidentiality of Alcohol and Drug AbusePatient Records regulations: The Federal rules restrict any use of the information to criminally investigate or prosecute any alcohol or drug abuse patient.[facility] Encounter Details Date Type Department Care Team (Late st Contact Info) Description 11/13/2024 2:42 PM EDT Anesthesia Event Gastroenterology [address] [address] Tristan Cardona MD [address] [place] [address] Anesthesia Record Procedure Summary Procedure Name Responsible Anesthesiologist Anesthesia Start Time Anesthesia Stop Time ERCP Tristan Cardona MD 11/13/24 1442 10/17 1530 Events Date Time Event Comment 11/13/2024 1430 1442 An Start I have re-evalu ated the patient immediately prior to induction. 1442 An Start Data 1446 An Induction I have re-evalu ated the patient immediately prior to induction. 1449 An Intubation 1450 Anesthesia Ready 1456 Proc Start 1516 Emerge 1519 An Extubation Patient : Airw ay suctioned clear; following commands with adequate responsiveness; strength and spontaneous ventilation confirmed; stable hemodynamics 1521 an stop data 1530 Handoff to RN I completed my handoff to the receiving nurse during which we: 1. Identified the patient 2. Identified the responsible provider 3. Reviewed the pertinent medical history 4. Discussed the surgical course 5. Reviewed intra-op anesthesia management and issues during anesthesia 6. Set expectations for post-procedure period 7. Allowed opportunity for questions and acknowledgement of understanding. 1530 An Stop Meds Name Total dexAMETHasone 4 mg/mL 4 mg ePHEDrine 5 mg/mL 25 mg lidocaine (PF) 1% 100 mg ondansetron (PF) 4 mg PHENYLephrine 0.1 mg/mL 300 mcg propofol 100 mg rocuronium 50 mg ciprofloxacin 400 mg piggyback 400 mg esmolol 30 mg sugammadex 200 mg LR 500 mL * Agents Name ETO2 ETN2O Inspired N2O Set O2% Inspired Sevoflurane Sevoflurane * Blood No blood administrations on file. Lines, Drains, and Airways Type Details Placement Removal Wound 09/09/24; 1101; N; 1 ; Surgical; Open Surg; Abdomen; Medial, Upper 09/09/24 1101 by Alejandro Valdez RN Wound 09/09/24; 1630; Othe r; Arm; Anterior, Distal, Left, Lower; skin tear 09/09/24 1630 by Kayla Haro, client success manager 10/07/24; 2150; Y; F lank; Lower, Right 10/07/24 2150 by Makayla Hoover, LEO SL Central Line 11/13/24 (assessed o n this date - already placed); (assessed at this time.); Right; Arm; 11/14/24; 0506 11/13/24 0000 by Jose Juan Schuster RN 11/14/24 0506 by AdtRaul anderson In Airway Endotracheal Tube; 11/13/24; 1445 (created via procedure documentation); 7.5 mm; Cuffed; No; 11/13/24; 1519 11/13/24 1445 by César Mcnamara APRN.AITCHBONE BREAKER 11/13/24 1519 by César Mcnamara APRN.AITCHBONE BREAKER documented in this encounter Social History Tobacco Use Types Packs/Day Years Used Date Smoking Tobacco: Former Cigarettes 1 20 1 04/20/1970 - 02/18/1991 Smokeless Tobacco: Never Alcohol Use Standard Drinks/Week Comments Not Currently 0 (1 standard drink = 0.6 oz pur e alcohol) Recovering alcoholic [facility] Utilities Answer Date Recorded In the past 12 months has th e electric, gas, oil, or water company threatened [...] is lower risk 7 04/25/2024 Data from: https://www.neighborhoodatlas.medicine.[facility].edu/. 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 Not on file Not on file Not on file documented as of this encounter Last Filed Vital Signs Vital Sign Reading Time Taken Comments Blood Pressure 110/69 11/13/2024 3:18 PM EDT Pulse 78 11/13/2024 3:20 PM EDT Temperature - - Respiratory Rate - - Oxygen Saturation 100% 11/13/2024 3:20 PM EDT Inhaled Oxygen Concentration - - Weight - - Height - - Body Mass Index - - documented in this encounter Functional Status * [...] Cecil Huntley RN documented in this encounter Procedure Notes * Tristan Cardona MD - 11/13/2024 4:14 PM EDT POST ANESTHESIA EVALUATION NOTE : 1955 Procedure Summary Date: 11/13/24 Room / Location: Gastroenterology Anesthesia Start: 1442 Anesthesia Stop: 1530 Procedure: ERCP Diagnosis: 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 Post Anesthesia Patient Status Patient Evaluation: PACU. PACU/ICU Patient Condition: stable. Neurological Status: aware and responsive. Pulmonary Status: breathing comfortably on room air Airway Control: returned to baseline unsupported. Cardiovascular Status: stable. Pain Management: clinically adequate Postoperative Hydration: acceptable. Intraoperative Events: no significant anesthesia events Post Operative Nausea/Vomiting Status: no significant post operative nausea or vomiting Recommendation: further care per PACU/ICU/floor team. Anesthesia Observations No Documentation SIGNATURE: Tristan Cardona MD PATIENT NAME: Charles Stewart DATE: November 13, 2024 TIME: 4:14 PM CSN: [id number] * César Mcnamara APRN.AITCHBONE BREAKER - 11/13/2024 3:11 PM EDTAssociated Order(s): Airway ANESTHESIOLOGY PROCEDURE NOTE Airway General Information Procedure Start Time/Medication Administration: 11/13/2024 2:45 PM Procedure End Time: 11/13/2024 2:49 PM Patient location during procedure: OR Timeout Performed Pre-procedure: timeout performed Consent Obtained: Yes Patient identity confirmed: arm band and patient Staffing AITCHBONE BREAKER: César Mcnamara APRN.AITCHBONE BREAKER Performed by: AITCHBONE BREAKER Indications and Patient Condition Indications for airway management: anesthesia Preoxygenated: yes anesthesia circuit Patient position: sniffing Method: asleep Difficult Mask: No Airway Accessory: oral airway Final Airway Details Final airway type: endotracheal airway Final Endotracheal Airway: ETT Cuffed: yes Successful intubation technique: video laryngoscopy Devices used: Spann Endotracheal tube insertion site: oral Blade size: #4 ETT size (mm): 7.5 Measured from: lips Measurement (cm): 23 Placement verified by: capnometry Cormack-Lehane Classification: grade I - full view of glottis Number of attempts at approach: 1 Airway not difficult SIGNATURE: César Mcnamara APRN.AITCHBONE BREAKER PATIENT NAME: Charles Stewart DATE: November 13, 2024 TIME: 3:11 PM CSN: [id number] * Tristan Cardona MD - 11/13/2024 2:30 PM EDT ANESTHESIOLOGY DAY OF SURGERY NOTE : 1955 Procedure Information Anesthesia Start Date/Time: 11/13/24 1442 Scheduled providers: Jane Correia MD; Tristan Cardona MD; César Mcnamara APRN.AITCHBONE BREAKER Procedure: ERCP Location: Gastroenterology Estimated body mass index is 22.15 kg/m?? as calculated from the following: Height as of this encounter: 175.3 cm (5' 9 ). Weight as of this encounter: 68 kg (150 lb). Most recent hematocrit and potassium results: Hematocrit 25.6 11/11/2024 Potassium 5.0 11/11/2024 Relevant Problems CARDIO (+) HTN (hypertension) (+) Portal hypertension with esophageal varices (HCC) GI (+) GERD (gastroesophageal reflux disease) -RENAL (+) PERLITA (acute kidney injury) (+) Acute renal failure (+) Alcoholic cirrhosis of liver with ascites (HCC) (+) CKD stage 3a, GFR 45-59 ml/min (HCC) (+) Chronic kidney disease (+) Complication of transplanted liver (HCC) (+) Decompensated cirrhosis (HCC) (+) Hepatocellular carcinoma (HCC) NEURO-PSYCH (+) History of prediabetes (+) Hx of colonic polyps PULMONARY (+) Shortness of breath I - PHYSICAL EVALUATION AIRWAY Patient intubated: No. Tracheostomy tube not present Mallampati: II. TM distance: >3 FB. Neck ROM: full ROM without neurological symptoms. Mouth opening: adequate. Short neck: no. Thick neck: no DENTAL Dental findings: teeth intact. II - ANESTHESIA PLAN ASA Score: 3 Anesthetic Plan: general Airway type: ETT NPO Status: adequate Beta Nikunj Monitoring Plan Monitoring plan: standard ASA. Post Procedure Analgesic Plan Postoperative analgesic plan: parenteral or oral opioids. Informed Consent Anesthetic risks, benefits, alternatives, personnel and consent discussed: yes. Patient / Responsible Republican agrees to proceed: yes Patient / Surrogate agrees to blood products: blood products not planned Potential Anesthesia issues that may suggest increased risk of complications or contraindication toplanned procedure: none. Vitals Value Taken Time BP 118/67 11/13/24 1426 Pulse 75 11/13/24 1426 Resp 18 11/13/24 1426 Temp 36 ??C (96.8 ??F) 11/13/24 1426 SpO2 97 % 11/13/24 1426 Outpatient Medications as of 11/13/2024 Medication Sig ??? iv contrast (will be provided with radiology test) MRI C,T,L SPINE Inject, intravenously, once for 1 dose. No IV access, insert saline lock prior to the beginning of sedation, infusion, injectionof imaging exam. Discontinue saline lock post exam. If Pt. has a central line or IVAD, may access for administration according to line specific nursing protocol. Once exam is complete flush line and de-access according to line specific nursing protocol in the MR contrast administration guidelines link. ??? buprenorphine (BUTRANS) 10 mcg/hour transdermal patch Apply 1 patch as directed one time a weekfor 30 days. On a Monday ??? linaclotide (LINZESS) 145 mcg capsule Take 1 capsule by mouth once daily. - Take capsule on an empty stomach at least 30 minutes before a meal at the same time each day. Capsule should be swallowed whole. DO NOT chew or crush ??? simethicone, chewable (MYLICON) 80 mg chewable tablet Take 1 tablet by mouth four times a day as needed. 9am,12n, 6pm, 9pm ??? midodrine (PROAMATINE) 10 mg tablet Take 1 tablet by mouth three times a day. 9am, 12n, 6pm ??? tamsulosin (FLOMAX) 0.4 mg Take 1 capsule by mouth daily at bedtime. ??? melatonin 3 mg tablet Take 1 tablet by mouth daily at bedtime. ??? oxyCODONE IR (ROXICODONE) 5 mg immediate release tablet Take 1 tablet by mouth two times a day for 14 days. FOR PAIN. ??? acetaminophen (TYLENOL) 500 mg tablet Take 1 tablet by mouth every 6 hours as needed for pain. ??? aspirin 81 mg chewable tablet Take 1 tablet by mouth once daily. ??? famotidine (PEPCID) 20 mg tablet Take 1 tablet by mouth two times a day. ??? magnesium oxide (MAG-OX) 400 mg (241.3 mg magnesium) tablet Take 2 tablets by mouth three timesa day. 9am, 3pm, 9pm ??? methocarbamol (ROBAXIN) 750 mg tablet Take 1 tablet by mouth two times a day. ??? Mirtazapine (REMERON) 7.5 mg tablet Take 1 tablet by mouth daily at bedtime. ??? multivitamin tablet Take 1 tablet by mouth once daily. ??? pantoprazole DR (PROTONIX) 40 mg tablet Take 1 tablet by mouth once daily. ??? sulfamethoxazole-trimethoprim (BACTRIM DS) 800-160 mg per tablet Take 1 tablet by mouth every Monday, Monday, and Monday. ??? tacrolimus IR (PROGRAF) 5 mg capsule Take 1 capsule by mouth two times a day. ??? traZODone (DESYREL) 50 mg tablet Take 1 tablet by mouth daily at bedtime. ??? ursodiol (ACTIGALL) 300 mg capsule Take 1 capsule by mouth three times a day. ??? acyclovir (ZOVIRAX) 400 mg tablet Take 1 tablet by mouth two times a day. ??? furosemide (LASIX) 40 mg tablet Take 1 tablet by mouth once daily. Patient should start on 2024. ??? benzonatate (TESSALON PERLE) 100 mg capsule Take 1 capsule by mouth three times a day as neededfor cough. ??? DAPTOmycin (CUBICIN) 700 mg/100 mL pgbk iv piggyback in NaCl 0.9% 100 mL Inject 100 mL intravenously every 24 hours for 14 days. ??? polyethylene glycol 3350 17 gram packet Take 1 packet by mouth once daily. Dissolve dose in 4 -8 ounces of liquid and take as directed. ??? valGANciclovir (VALCYTE) 450 mg tablet Take 2 tablets by mouth two times a day with meals. ??? heparin 5,000 unit/mL injection Inject 1 mL subcutaneously every 12 hours. Facility-Administered Medications as of 11/13/2024 Medication Dose Route Frequency ??? lidocaine (PF) 10 mg/mL (1 %) 1-2 mg injection (XYLOCAINE) 0.1-0.2 mL INTRADERMAL PRN ??? NaCl 0.9% iv infusion 30 mL/hr INTRAVENOUS CONTINUOUS ??? ePHEDrine sulfate injection (EMERPHED) INTRAVENOUS PRN ??? PHENYLephrine injection INTRAVENOUS PRN ??? lactated ringers iv infusion INTRAVENOUS X (ONE-STEP ONLY) CONTINUOUS PRN ??? lidocaine (PF) 10 mg/mL (1 %) injection (XYLOCAINE) INTRAVENOUS PRN ??? propofol injection (DIPRIVAN) INTRAVENOUS PRN ??? rocuronium injection INTRAVENOUS PRN ??? ondansetron (PF) injection (ZOFRAN) INTRAVENOUS PRN ??? dexAMETHasone sodium phosphate injection (DECADRON) INTRAVENOUS PRN ??? ciprofloxacin iv piggyback 400 mg in D5W 200 mL (CIPRO) INTRAVENOUS PRN ??? esmolol injection (BREVIBLOC) INTRAVENOUS PRN I have interviewed and examined the patient. I have reviewed the medical record and/or the pre-anesthesia evaluation, pertinent labs, and test results. This contains updated information obtained within 48 hours of Surgery/Procedure. SIGNATURE: Tristan Cardona MD PATIENT NAME: Charles Stewart DATE: November 13, 2024 TIME: 3:08 PM CSN: [id number] documented in this encounter Plan of Treatment Upcoming Encounters Date Type Department Care Team (Late st Contact Info) Description 11/21/2024 4:00 PM EDT Office Visit Transplant Center [address] [place] [address] KAYLIE ARELLANO 11/21/2024 5:40 PM EDT Appointment MRI Q [address] [address] Compression fracture of cervical spine, non-traumatic, with delayed healing, subsequent encounter [M48.52XG] 11/21/2024 6:20 PM EDT Appointment MRI Q [address] [address] Compression fracture of cervical spine, non-traumatic, with delayed healing, subsequent encounter [M48.52XG] 11/21/2024 7:00 PM EDT Appointment MRI Q [address] [address] Compression fracture of cervical spine, non-traumatic, with delayed healing, subsequent encounter [M48.52XG] 02/03/2025 9:00 AM EDT [facility] [address] [place] [address] Devyn Roach MD [address] [place] [address] Vertigo [R42] 02/10/2025 11:00 AM EDT Appointment Gastroenterology [address] [address] Jane Correia MD [address] [place] [address] Schedule in about 3 months to remove biliary stent documented as of this encounter Goals Goal Patient Goal Type Associated Problems Recent Progress Patient-Stated? Author Blood Pressure < 130/80 Blood Pressure 122/80( 025 5:30 PM EDT) No Vanessa Arora MD documented as of this encounter Procedures Procedure Name Priority Date/Time Associated Diagnosis Comments INTUBATION Routine 11/13/2024 2:45 PM EDT documented in this encounter Results * Airway (11/13/2024 2:45 PM EDT) Narrative César Mcnamara APRN.AITCHBONE BREAKER - 11/13/2024 2:45 PM EDT César Mcnamara APRN.AITCHBONE BREAKER 11/13/2024 3:11 PM Airway General Information Procedure Start Time/Medication Administration: 11/13/2024 2:45 PM Procedure End Time: 11/13/2024 2:49 PM Patient location during procedure: OR Timeout Performed Pre-procedure: timeout performed Consent Obtained: Yes Patient identity confirmed: arm band and patient Staffing AITCHBONE BREAKER: César Mcnamara APRN.AITCHBONE BREAKER Performed by: RADHA Indications and Patient Condition Indications for airway management: anesthesia Preoxygenated: yes anesthesia circuit Patient position: sniffing Method: asleep Difficult Mask: No Airway Accessory: oral airway Final Airway Details Final airway type: endotracheal airway Final Endotracheal Airway: ETT Cuffed: yes Successful intubation technique: video laryngoscopy Devices used: Spann Endotracheal tube insertion site: oral Blade size: #4 ETT size (mm): 7.5 Measured from: lips Measurement (cm): 23 Placement verified by: capnometry Cormack-Lehane Classification: grade I - full view of glottis Number of attempts at approach: 1 Airway not difficult us Tristan Cardona MD ANESTHESIA ORDERABLES Final Result documented in this encounter Visit Diagnoses Not on filedocumented in this encounter Administered Medications Inactive Administered Medications - up to 3 most recent administrations Medication Order MAR Action Action Date Dose Rate Site ciprofloxacin iv piggyback 400 mg in D5W 200 mL (CIPRO) INTRAVENOUS, Administer over 60 Minutes, NEEDED, Starting on Mon11/13/24 at 1459, Until Mon11/13/24 at 1537, Anesthesia Intraprocedure Given 11/13/2024 2:59 PM EDT 400 mg dexAMETHasone sodium phosphate injection (DECADRON) INTRAVENOUS, NEEDED, Starting on Mon11/13/24 at 1452, Until Mon11/13/24 at 1537, Anesthesia Intraprocedure Given 11/13/2024 2:52 PM EDT 4 mg ePHEDrine sulfate injection (EMERPHED) INTRAVENOUS, NEEDED, Starting on Mon11/13/24 at 1458, Until Mon11/13/24 at 1537, Anesthesia Intraprocedure Given 11/13/2024 3:11 PM EDT 10 mg Given 11/13/2024 2:58 PM EDT 15 mg esmolol injection (BREVIBLOC) INTRAVENOUS, NEEDED, Starting on Mon11/13/24 at 1446, Until Mon11/13/24 at 1537, Anesthesia Intraprocedure Given 11/13/2024 2:46 PM EDT 30 mg lactated ringers iv infusion INTRAVENOUS, X (ONE-STEP ONLY) CONTINUOUS PRN, Starting on Mon11/13/24 at 1442, Until Mon11/13/24 at 1537, Anesthesia Intraprocedure New Bag/Syringe/Bottle 11/13/2024 2:42 PM EDT lidocaine (PF) 10 mg/mL (1 %) injection (XYLOCAINE) INTRAVENOUS, NEEDED, Starting on Mon11/13/24 at 1446, Until Mon11/13/24 at 1537, Anesthesia Intraprocedure Given 11/13/2024 2:46 PM EDT 100 mg ondansetron (PF) injection (ZOFRAN) INTRAVENOUS, NEEDED, Starting on Mon11/13/24 at 1452, Until Mon11/13/24 at 1520, Anesthesia Intraprocedure Given 11/13/2024 2:52 PM EDT 4 mg PHENYLephrine injection INTRAVENOUS, NEEDED, Starting on Mon11/13/24 at 1457, Until Mon11/13/24 at 1537, Anesthesia Intraprocedure Given 11/13/2024 2:57 PM EDT 200 mcg Given 11/13/2024 2:54 PM EDT 100 mcg propofol injection (DIPRIVAN) INTRAVENOUS, NEEDED, Starting on Mon11/13/24 at 1446, Until Mon11/13/24 at 1520, Anesthesia Intraprocedure Given 11/13/2024 2:46 PM EDT 100 mg rocuronium injection INTRAVENOUS, NEEDED, Starting on Mon11/13/24 at 1446, Until Mon11/13/24 at 1537, Anesthesia Intraprocedure Given 11/13/2024 2:46 PM EDT 50 mg sugammadex injection (BRIDION) INTRAVENOUS, NEEDED, Starting on Mon11/13/24 at 1517, Until Mon11/13/24 at 1537, Anesthesia Intraprocedure Given 11/13/2024 3:17 PM EDT 200 mg documented in this encounter Care Teams Lending Activities Supervisor Relationship Specialty Start Date End Date Rusty Delgado II, MD [address] [address] [facility] [address] [place] [address] PCP - General Internal Medicine 05/28/24 Irena Johnson MD [address] [place] [phone] Referring Gastroenterology 03/12/24 Vanessa Arora MD [address] [place] [address] Primary Staff Physician Cardiology 05/02/24 Carina Ziegler, RN [facility] [address] [facility] [place] [address] Registered Nurse Transplant Center 09/17/24 documented as of this encounter
--- OUTSIDE RECORDS SUMMARY | 2024-11-14 14:30 | XMS_ITS | Encounter Summary ---
Author Organization [facility] Address [address] [place] [address] Care Team Providers Care Hair Worker Name Role Phone Irena Johnson MD Unavailable Vanessa Arora MD Unavailable [phone] Danny WONG MD, Rusty Gomez Primary Care Provider [phone] Carina Ziegler RN Unavailable Unavailable Source Comments In the event this information is protected by the Federal Confidentiality of Alcohol and Drug AbusePatient Records regulations: The Federal rules restrict any use of the information to criminally investigate or prosecute any alcohol or drug abuse patient.[facility] Reason for Visit * Reason Comments Follow Up Encounter Details Date Type Department Care Team (Latest Contact Info) Description 11/14/2024 2:30 PM EDT [facility] Infectious Disease [address] [place] [address] Dana Nicholson MD [address] [place] [address] VRE infection (vancomycin resistant Enterococcus) (Primary Dx) Social History Tobacco Use Types Packs/Day Years Used Date Smoking Tobacco: Former Cigarettes 1 20 1 04/20/1970 - 02/18/1991 Smokeless Tobacco: Never Alcohol Use Standard Drinks/Week Comments Not Currently 0 (1 standard drink = 0.6 oz pur e alcohol) Recovering alcoholic [facility] Utilities Answer Date Recorded In the [...] is lower risk 7 04/25/2024 Data from: https://www.neighborhoodatlas.medicine.[facility].edu/. Last address used for calculation Eugene Villanueva [...] Cecil Huntley RN documented in this encounter Progress Notes * Dana Nicholson MD - 11/14/2024 2:24 PM EDT Images from the original note were not included. INFECTIOUS DISEASE - OUTPATIENT FOLLOW UP VISIT - VIRTUAL VISIT Service Date: November 14, 2024 Service Time: 2:24 PM Patient Name: Charles Stewart Date of : 1955 Reason for visit: Hospital follow up visit SUBJECTIVE: 69-year-old gentleman with history of alcoholic cirrhosis & hepatocellular carcinoma, s/p orthotopic liver transplant 09/09/2024 (CMV +/-, EBV +/+) who I saw at [facility] during his admission from 10/07 to 10/30/24. Pt on 10/16/23 went for an ERCP for Elevated alkaline phosphatase, Post liver transplant assessment and was noted to have Filling defects consistent with stones and sludge was seen on the cholangiogram, A bile leak was found eminating from the donor cystic duct , Large stone proximalto the stenosis could not be removed. IR [facility] aspiration/drain is growing VRE for which ID was consulted. I put him on dapto until 11/12/24. He had a ERCP done yesterday He was seen over video. He has pain in his lower back. No fevers, no chills, has some sob on exertion. Its not acutely sob. No n/v/d. Has diarrhea on occasion, last week was the last occurrence. Has very mild pain in the abd area as most pain is his back. Allergies: ALLERGIES No Known Allergies Current Medications: Current Outpatient Medications Medication Sig ciprofloxacin HCl (CIPRO) 500 mg tablet Take 1 tablet by mouth two times a day for 5 days. buprenorphine (BUTRANS) 10 mcg/hour transdermal patch Apply [...] tablet by mouth two times a day. methocarbamol (ROBAXIN) 750 mg tablet Take 1 [...] three times a day as needed forcough. polyethylene glycol 3350 17 gram packet Take 1 packet by mouth once daily. Dissolve dose in 4 - 8 ounces of liquid and take as directed. valGANciclovir (VALCYTE) 450 mg tablet Take 2 tablets by mouth two times a day with meals. heparin 5,000 unit/mL injection Inject 1 mL subcutaneously every 12 hours. No current facility-administered medications for this visit. Past Medical History: PAST MEDICAL HISTORY Diagnosis Date Acute postoperative respiratory insufficiency 09/09/2024 PERLITA (acute kidney injury) 08/27/2024 Tipton's esophagus Chest pain on breathing 10/15/2024 GERD (gastroesophageal reflux disease) Gout History of transfusion HTN (hypertension) Hx of colonic polyps Hyperlipidemia Liver cirrhosis (HCC) Liver disease Osteoporosis Umbilical hernia OBJECTIVE: Vital signs: There were no vitals taken for this visit. Physical Examination: Constitutional: comfortable over video Skin: no rashes on the face Eyes: EMOI, no jaundice Head/Neck: a traumatic Respiratory/Thorax: comfortable on room air. Musculoskeletal: able to move upper extremities. Neurological: grossly non focal Psychological: not anxious or depressed appearing. Laboratory Studies (I personally reviewed the clinical labs and microbiology data): WBC (k/uL) Date Value 11/14/2024 2.59 03/06/2014 7.54 Hemoglobin (g/dL) Date Value 11/14/2024 7.2 03/06/2014 14.0 Platelet Count (k/uL) Date Value 11/14/2024 507 03/06/2014 130 Creatinine (mg/dL) Date Value 11/14/2024 1.40 10/17/2016 1.02 Estimated Creatinine Clearance: 46.5 mL/min (A) (based on SCr of 1.4 mg/dL (H)). Alkaline Phosphatase (U/L) Date Value 11/14/2024 136 10/17/2016 54 AST (U/L) Date Value 11/14/2024 25 10/17/2016 43 ALT (U/L) Date Value 11/14/2024 12 10/17/2016 38 Bilirubin, Total (mg/dL) Date Value 11/14/2024 0.2 10/17/2016 0.3 Immunizations: Immunization History Administered Date(s) Administered COVID-19 original vaccine, full dose, monovalent (MODERNA) 05/27/2020 06/24/2020 hepatitis A (HepA) vaccine, adult (HAVRIX, VAQTA) 05/02/2024 08/28/2024 hepatitis B (HepB-CpG) vaccine, adult, 2-dose series (HEPLISAV-B) 05/02/2024 08/28/2024 influenza (HD-IIV3) vaccine, age 65+ yr, high dose, trivalent, PF (FLUZONE HIGH-DOSE) 02/17/2021 02/01/2022 03/04/2024 influenza (IIV3) vaccine, age 6 mo - 64 yr, trivalent (AFLURIA, FLULAVAL, FLUVIRIN, FLUZONE) 01/14/2014 02/10/2015 02/01/2016 influenza (IIV4) vaccine, age 6 mo - 64 yr, quadrivalent (AFLURIA, FLULAVAL, FLUZONE) 02/13/2017 02/10/2019 influenza (IIV4) vaccine, age 6 mo - 64 yr, quadrivalent, PF (AFLURIA, FLUARIX, FLULAVAL, FLUZONE) 02/10/2019 influenza (IIV4) vaccine, quadrivalent (AFLURIA, FLULAVAL, FLUZONE) 01/17/2017 influenza (aIIV4) vaccine, age 65+ yr, quadrivalent, PF (FLUAD QUAD) 01/24/2023 influenza vaccine, unspecified formulation 01/23/2013 02/17/2021 02/01/2022 01/24/2023 pneumococcal conjugate (PCV20) vaccine, 20 valent (PREVNAR 20) 03/04/2024 respiratory syncytial virus (RSV) vaccine, adjuvanted (AREXVY) 06/10/2024 tetanus diphtheria pertussis (Tdap) vaccine, age 7+ yr (ADACEL, BOOSTRIX) 03/22/2022 zoster (RZV) vaccine, recombinant (SHINGRIX) 04/30/2022 zoster (ZVL) vaccine, live (ZOSTAVAX) 03/24/2015 Microbiology: 10/17/24 Abd cx Imaging 10/19/24 US doppler IMPRESSION: Patent hepatic vasculature with appropriately directed flow. 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 Small volume loculated ascites. No splenomegaly. Stable pneumobilia 10/18/24 CT abd/pelvis IMPRESSION: Interval placement of a percutaneous drainage catheter with decompression of the gallbladder fossa collection. Moderate volume abdominal ascites, similar to prior study. Essentially stable RIGHT hydropneumothorax and moderate LEFT pleural effusion. 69-year-old gentleman with history of alcoholic cirrhosis & hepatocellular carcinoma, s/p orthotopic liver transplant 09/09/2024 (CMV +/-, EBV +/+). Pt on 10/16/23 went for an ERCP for Elevated alkaline phosphatase, Post liver transplant assessment and was noted to have Filling defects consistentwith stones and sludge was seen on the cholangiogram, A bile leak was found eminating from the donor cystic duct , Large stone proximal to the stenosis could not be removed. IR [facility] aspiration/drain is growing VRE and was placed on dapto. He is here for ID follow up IMPRESSIONS: Infected bile leak 10/17/24 -CTAP 10/16: 5.2 cm collection in the gallbladder fossa with small amount of contrast, likely contained bile leak. Stable to slightly decreased size of geographic low-attenuation in the right hepatic lobe, possibly inflammatory or evolving infarct. Moderate volume abdominopelvic ascites. -S/p Image-guided perihepatic collection aspiration + drain placement 10/17, cx growing VRE -CTAP 10/18/24: There has been interval placement of a percutaneous drainage catheter with decompression of the gallbladder fossa collection. Currently the collection measures 2.6 x 1.4 cm (3:46), previously 5.2 x 3.8 cm. 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 Prior biliary sphincterotomy appeared open. Choledocholithiasis was found. Complete removal was accomplished by balloon extraction. As his last ERCP yesterday removed all this stones, I think we have good source control. I think wecan stop the dapto he has been on it for since early October. He is overall doing well. He has some back pain which seems chronic. High Risk CMV Asymptomatic CMV viremia, detected below level of quantification 09/30/2024 and gradually increased,but remains < 1000 IU/mL. - Valganciclovir was started 10/14/2024 -11/04 and 11/11 CMV VL is not detected. Prior infections: Parainfluenza virus upper respiratory infection 10/08/2024. This is not likely to be contributing tothe current left pleuritic chest pain. Comfortable on room air. SUGGESTIONS / PLAN: 1. S/p daptomycin with last day on 11/12/24. Can pull the picc line. 2. Monitor off abx . 3. CMV VL negative x2. Can stop valcyte 4. F/u with ID as needed The dental hygienist mobile coordinator is CCed to this note I personally monitored antibiotics requiring intensive drug monitoring for therapeutic and adverse effects for toxicity. I spent a total of 37 minutes on the date of the service which included preparing to see the patient, [id number] patient care, completing clinical documentation, obtaining and/or reviewing separately obtained history, performing a medically appropriate examination, and counseling and educating the patient/family/caregiver. Dana Nicholson M.D. Staff, Infectious Disease [facility] Thank you for allowing us to contribute to this patient's care. Please call with questions. Case findings/test results and suggestions discussed with the requesting physician via the shared electronic medical record documented in this encounter Plan of Treatment Upcoming Encounters Date Type Department Care Team (Late st Contact Info) Description 11/21/2024 4:00 PM EDT Office Visit Transplant Center [address] [address] KAYLIE ARELLANO 11/21/2024 5:40 PM EDT Appointment MRI Q [address] [address] Compression fracture of cervical spine, non-traumatic, with delayed healing, subsequent encounter [M48.52XG] 11/21/2024 6:20 PM EDT Appointment MRI Q [address] [address] Compression fracture of cervical spine, non-traumatic, with delayed healing, subsequent encounter [M48.52XG] 11/21/2024 7:00 PM EDT Appointment MRI Q [address] [address] Compression fracture of cervical spine, non-traumatic, with delayed healing, subsequent encounter [M48.52XG] 02/03/2025 9:00 AM EDT [facility] Neurology [address] [place] [address] Devyn Roach MD [address] [place], [place] [id number] Vertigo [R42] 02/10/2025 11:00 AM EDT Appointment Gastroenterology [address] [address] Jane Correia MD [address] [place] [address] Schedule in about 3 months to remove biliary stent documented as of this encounter Goals Goal Patient Goal Type Associated Problems Recent Progress Patient-Stated? Author Blood Pressure < 130/80 Blood Pressure 122/80( 025 5:30 PM EDT) No Vanessa Arora MD documented as of this encounter Visit Diagnoses Diagnosis VRE infection (vancomycin resistant Enterococcus)- Primary Streptococcus infection in conditions classified elsewhere and of unspecified site, group D documented in this encounter Care Teams Hair Worker Relationship Specialty Start Date End Date Rusty Delgado II, MD [address] [facility] [address] [place] [address] PCP - General Internal Medicine 05/28/24 Irena Johnson MD [address] [facility] [address] [place] [phone] Referring Gastroenterology 03/12/24 Vanessa Arora MD [address] [place] [address] Primary Staff Physician Cardiology 05/02/24 Carina Ziegler, RN [facility] [address] [place] [address] Registered Nurse Transplant Center 09/17/24 documented as of this encounter
[2024-11-19] VITALS (96 sets, daily range): BP systolic 120–165; BP diastolic 65–105; PULSE 69–116; TEMP 36.4–36.8; O2SAT 82–100; BMI 21.1
--- NOTE | 2024-11-19 02:18 | XR_ITS ---
The [address] [address] Patient Name: LOYD BLANDON MRN: [id number] date: 1955 Sex: M Assigned Patient Location: ED.MAIN Current Patient Location: ED.MAIN Accession/Order Number: [id number] Exam Date: 11/19/2024 09:04 Report Date: 11/19/2024 09:05 At the request of: APRIL GEORGE MD Procedure: XR hip LT min 2V XR hip LT min 2V 11/19/2024 2:52 AM SIGNS AND SYMPTOMS: ^fall PROTOCOL: Frontal and crosstable lateral views of the left hip COMPARISON: None FINDINGS: The joint space of the left hip is preserved. There is no fracture or dislocation. Atherosclerotic changes are noted in the soft tissues. The visualized left hemipelvis is grossly intact. XR/XR hip LT min 2V IMPRESSION: No fracture or dislocation. Impression dictated by: Nakul Pack M.D. 11/19/2024 9:05 AM Dictation Location: [place] [address] Electronically authenticated by: [id number] Y Date: 11/19/2024 09:05
--- NOTE | 2024-11-19 02:18 | XR_ITS ---
The [address] [address] Patient Name: LOYD BLANDON MRN: [id number] date: 1955 Sex: M Assigned Patient Location: ED.MAIN Current Patient Location: ED.MAIN Accession/Order Number: [id number] Exam Date: 11/19/2024 08:52 Report Date: 11/19/2024 08:56 At the request of: APRIL GEORGE MD Procedure: XR chest 1V XR chest 1V 11/19/2024 2:52 AM SIGNS AND SYMPTOMS: ^Fell yesterday PROTOCOL: Frontal radiograph of the chest COMPARISON: 12/08/2023 FINDINGS: The trachea is midline. There is cardiomegaly. Worsening left-sided airspace opacity and effusion is noted. There is interval improvement in a right-sided pleural effusion when compared to exam. There is deformity of the lateral aspect of the left chest wall along the left fifth through seventh ribs suggesting acute fractures. XR/XR chest 1V IMPRESSION: There is deformity of the lateral aspect of the left chest wall along the left fifth through seventh ribs suggesting acute fractures. Worsening left-sided airspace opacity and effusion is noted. There is interval improvement in a right-sided pleural effusion when compared to exam. No pneumothorax. Impression dictated by: Nakul Pack M.D. 11/19/2024 8:56 AM Dictation Location: [place] [address] Electronically authenticated by: [id number] Y Date: 11/19/2024 08:56
--- NOTE | 2024-11-19 02:18 | ED.GENADUL1 ---
HPI HPI - General Adult General Chief complaint: Fall Stated complaint: FALL/HIP PAIN Time Seen by Provider: 11/19/24 02:11 History of Present Illness HPI narrative: 69-year-old male presented to the emergency department for left hip pain. He fell in his home while coming back from the bathroom using his walker. He did not injure anything else tonight. Yesterday he fell and he hurt his chest. He had a liver transplant about 3 months ago and has been home for 3 or 4 days. He was transported here by ambulance, he was unable to walk. The pain is severe and worse if he moves it. Related Data Home Medications ?Medication ?Instructions ?Recorded ?Confirmed calcium 600 mg (as 1 tab PO DAILY 10/03/23 03/11/24 carbonate)-vitamin D3 5 mcg (200 unit) tablet lansoprazole 30 mg capsule,delayed 30 mg PO DAILY 10/03/23 03/11/24 release multivitamin 1 tab PO DAILY 10/03/23 03/11/24 spironolactone 100 mg tablet 150 mg PO DAILY 10/03/23 03/11/24 rifaximin 550 mg tablet (Xifaxan) 550 mg PO BID 12/07/23 03/11/24 carvedilol 3.125 mg tablet 3.125 mg PO BEDTIME 01/03/24 03/11/24 furosemide 40 mg tablet 60 mg PO DAILY 01/03/24 03/11/24 lactulose 10 gram/15 mL oral 30 ml PO DAILY 01/03/24 03/11/24 solution magnesium 1 tab PO DAILY 01/24/24 03/11/24 Allergies Allergy/AdvReac Type Severity Reaction Status Date / Time No Known Drug Allergies Allergy Verified 11/19/24 02:23 Opioid HPI Opioid Management Most Recent Opioid Data: Last Pain Scale 10 Today, 04:15 Last MAR Pain Assessment Today, 04:15 Last ORT Total Score 0 12/07/23, 18:36 Last ORT Risk Category Low Risk 12/07/23, 18:36 Review of Systems ROS Narrative A ten point review of systems is negative except as noted above. [facility] Medical History (Updated 11/19/24 @ 06:45 by José Miguel Suarez MD) S/P abdominal paracentesis ?Z98.890 - Other specified postprocedural states (ICD-10) History of tobacco abuse ?Z87.891 - Personal history of nicotine dependence (ICD-10) Sinus bradycardia ?R00.1 - Bradycardia, unspecified (ICD-10) Pleural effusion, right ?J90 - Pleural effusion, not elsewhere classified (ICD-10) Liver cirrhosis secondary to JARAMILLO (nonalcoholic steatohepatitis) ?K75.81 - Nonalcoholic steatohepatitis (JARAMILLO) (ICD-10) ?K74.60 - Unspecified cirrhosis of liver (ICD-10) Esophageal varices ?I85.00 - Esophageal varices without bleeding (ICD-10) Hyponatremia ?E87.1 - Hypo-osmolality and hyponatremia (ICD-10) Osteoporosis ?M81.0 - Age-related osteoporosis without current pathological fracture (ICD-10) Metabolic syndrome X ?E88.810 - Metabolic syndrome (ICD-10) Incisional hernia ?K43.2 - Incisional hernia without obstruction or gangrene (ICD-10) Diabetes ?E11.9 - Type 2 diabetes mellitus without complications (ICD-10) HTN (hypertension) ?I10 - Essential (primary) hypertension (ICD-10) GERD (gastroesophageal reflux disease) ?K21.9 - Gastro-esophageal reflux disease without esophagitis (ICD-10) Weight loss ?R63.4 - Abnormal weight loss (ICD-10) Barretts esophagus ?K22.70 - Tipton's esophagus without dysplasia (ICD-10) Pleural effusion, bilateral ?J90 - Pleural effusion, not elsewhere classified (ICD-10) Liver mass ?R16.0 - Hepatomegaly, not elsewhere classified (ICD-10) Ascites ?R18.8 - Other ascites (ICD-10) Surgical History (Updated 03/11/24 @ 14:24 by Sarina Benjamin) H/O cataract removal with insertion of prosthetic lens ?Z98.49 - Cataract extraction status, unspecified eye (ICD-10) ?Z96.1 - Presence of intraocular lens (ICD-10) Status post thoracentesis ?Z98.890 - Other specified postprocedural states (ICD-10) S/P abdominal paracentesis ?Z98.890 - Other specified postprocedural states (ICD-10) Hx of cholecystectomy ?Z90.49 - Acquired absence of other specified parts of digestive tract (ICD-10) H/O colonoscopy ?Z98.890 - Other specified postprocedural states (ICD-10) H/O esophagogastroduodenoscopy ?Z98.890 - Other specified postprocedural states (ICD-10) Family History (Updated 12/07/23 @ 18:56 by Irma Smith) Mother Family history of COPD (chronic obstructive pulmonary disease) Family history of hypertension Father Family history of hypertension Social History (Updated 12/07/23 @ 18:58 by Irma Smith) Within the past year, how often did you have a drink containing alcohol: never Within the past year, how often did you have six or more drinks on one occasion: never Score interpretation: A score less than 4 is consistent with normal alcohol consumption. 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 Highest level of school completed/degree received: high school graduate Are you now , , , , never or living with a partner: In a typical week, how many times do you talk on the telephone with family, friends, or neighbors: once per week How often do you get together with friends or relatives: once per week How often do you attend gnosticist or episcopal services: never Do you belong to any clubs or organizations such as gnosticist groups unions, fraternal or athletic groups, or school groups: no Total score: 1 Score interpretation: A score of less than or equal to 1 indicates the most socially isolated. Little interest or pleasure in doing things: not at all Feeling down, depressed, or hopeless: not at all Feel stressed/tense/nervous/anxious/difficulty sleeping: not at all Exam Narrative Exam Narrative: Nurses note and vital signs reviewed and patient is not hypoxic. General: The patient appears well and in no apparent distress. Patient is resting comfortably on cart. Skin: Warm, dry, no pallor noted. There is no rash noted. Head: Normocephalic, atraumatic Eye: Normal conjunctiva, no drainage, EOMI. PERRL Ears, Nose, Mouth, and Throat: oral mucosa is moist. Nares patent. Cardiovascular: Regular Rate and Rhythm Respiratory: Patient is in no distress, no accessory muscle use, lungs are clear to auscultation, no wheezing, rales or rhonchi Back: non-tender GI: Soft and nontender Musculoskeletal: He has tenderness in the left hip, nowhere else on that leg. The leg is not shortened or externally rotated. Neurological: Awake alert. The patient thought he was in a different hospital, [facility], and his states that has been the way he has been for weeks Psychiatric: Cooperative Constitutional Vital Signs, click to edit/add: Last Vital Signs Temp 98.2 F 11/19/24 02:14 Pulse 107 H 11/19/24 03:16 Resp 22 H 11/19/24 03:16 BP 120/83 11/19/24 05:00 Pulse Ox 97 11/19/24 05:00 O2 Del Method Nasal Cannula 11/19/24 02:19 O2 Flow Rate 4 11/19/24 03:16 Course Vital Signs Vital signs: Vital Signs Temperature 98.2 F 11/19/24 02:14 Pulse Rate 116 H 11/19/24 02:14 Respiratory Rate 24 H 11/19/24 02:14 Blood Pressure 152/98 H 11/19/24 02:14 Pulse Oximetry 83 L 11/19/24 02:14 Oxygen Delivery Method Room Air 11/19/24 02:14 Temperature 98.2 F 11/19/24 02:14 Pulse Rate 107 H 11/19/24 03:16 Respiratory Rate 22 H 11/19/24 03:16 Blood Pressure 120/83 11/19/24 05:00 Pulse Oximetry 97 11/19/24 05:00 Oxygen Delivery Method Nasal Cannula 11/19/24 02:19 Oxygen Delivery Flow Rate 4 11/19/24 03:16 Medical Decision Making MDM Narrative Medical decision making narrative: Pelvic fracture is indicated on the CAT scan. Chest x-ray is pending. The patient has been home from rehab for only 4 days. The patient is signed out to Dr. Hair at change of shift. Differential Diagnosis Differential Diagnosis: Hip fracture, pelvic fracture, contusion Discharge Plan Discharge Patient Disposition: Still a Patient
--- OUTSIDE RECORDS SUMMARY | 2024-11-19 02:22 | XMS_ITS | Encounter Summary ---
Author Organization [facility] Address [address] [place] [address] Care Team Providers Care Tool And Die Engineer Name Role Phone Rusty Delgado MD Unavailable [phone] Rusty Delgado MD Primary Care Provider Encounter Details Date Type Department Care Team (Late st Contact Info) Description 07/08/2024 Abstract [facility] [place] [facility] [address] [facility] 110 [place] [id number] Rusty Delgado MD 112 [facility] 110 [place] [address] Social History Tobacco Use Types Packs/Day Years Used Date Smoking Tobacco: Former Cigarettes Q uit: 1989 Smokeless Tobacco: Never Alcohol Use Standard Drinks/Week Comments Yes 0 (1 standard drink = 0.6 oz pure alcohol) 2-3 times per week, 1-2 drinks at a time B1300 Health Literacy Answer Date Recor ded How often do you need to hav e someone help you when you read instructions, pamphlets, or other written material from your doctor or pharmacy? Rarely 12/12/2023 Social Connection and Isolation Panel [NHANES] A nswer Date Recorded In a typical week, how many times do you talk on the phone with family, friends, or neighbors? Never 12/12/2023 How often do you get together with friends or re latives? Never 12/12/2023 How often do you attend scientologist or baptist serv ices? Never 12/12/2023 Do you belong to any clubs o r organizations such as scientologist groups, unions, fraternal or athletic groups, or school groups? No 12/12/2023 How often do you attend meet ings of the clubs or organizations you belong to? Never 12/12/2023 Are you , , di vorced, , never , or living with a partner? 12/12/2023 AUDIT-C Answer Date Recorded Q1: How often do you have a drink containing alcohol? Never 12/12/2023 Q2: How many drinks containi ng alcohol do you have on a typical day when you are drinking? Patient does not drink Q3: How often do you have si x or more drinks on one occasion? Never 12/12/2023 Overall Financial Resource Strain (CARDIA) Answe r Date Recorded How hard is it for you to pa y for the very basics like food, housing, medical care, and heating? Not hard at all 12/12/2023 PHQ-2 Answer Date Recorded Patient Health Questionnaire-2 Score 2 05/15/2024 [facility] of Occupat ional [facility] - Occupational Stress Questionnaire Answer Date Recorded Do you feel stress - tense, restless, nervous, or anxious, or unable to sleep at night because your mind is troubled all the time - these days? To some extent 12/12/2023 Exercise Vital Sign Answer Date Recorde d On average, how many days pe r week do you engage in moderate to strenuous exercise (like a brisk walk)? 0 days 12/12/2023 On average, how many minutes do you engage in exercise at this level? 0 min 12/12/2023 Hunger Vital Sign Answer Date Recorded Within the past 12 months, y ou worried that your food would run out before you got the money to buy more. Never true 12/12/19 24 Within the past 12 months, t he food you bought just didn't last and you didn't have money to get more. Never true 12/12/2023 PRAPARE - Transportation Answer Date Re corded In the past 12 months, has l ack of transportation kept you from medical appointments or from getting medications? No 11/16 In the past 12 months, has l ack of transportation kept you from meetings, work, or from getting things needed for daily living? No 12/12/2023 Housing Stability Vital Sign Answer Karl e Recorded In the last 12 months, was t here a time when you were not able to pay the mortgage or rent on time? No 12/12/2023 In the past 12 months, how m any times have you moved where you were living? 0 12/12/2023 At any time in the past 12 m ont, were you homeless or living in a long-term (including now)? No 12/12/2023 Sex and Gender Information Value Date Recorded Sex Assigned at Male 12/12/2023 1:36 PM EDT Legal Sex Male 11:50 PM EDT Gender Identity Male 12/12/2023 1:36 PM EDT Sexual Orientation Asexual 12/12/2023 1: 36 PM EDT documented as of this encounter Plan of Treatment Upcoming Encounters Date Type Department Care Team (Late st Contact Info) Description 11/20/2024 11:00 AM EDT Office Visit [facility] [place] [address] [facility] 110 [place] [address] Rusty Delgado MD [address] [facility] 110 [place] [address] documented as of this encounter Visit Diagnoses Not on filedocumented in this encounter Care Teams Tool And Die Engineer Relationship Specialty Start Date End Date Rusty Delgado MD [address] [facility] 110 [place] [address] PCP - [employer] 04/17/22 Rusty Delgado MD [address] [facility] [address] [place] [address] PCP - General Internal Medicine 11/23/22 documented as of this encounter
--- OUTSIDE RECORDS SUMMARY | 2024-11-19 02:22 | XMS_ITS | Encounter Summary ---
Author Organization [facility] Address [address] [place] [address] Care Team Providers Care Burlap Spreader Name Role Phone Rusty Delgado MD Unavailable [phone] Rusty Delgado MD Primary Care Provider [phone] Encounter Details Date Type Department Care Team (Late st Contact Info) Description 06/19/2024 Abstract [facility] [place] [facility] [address] [facility] 110 [place] [phone] Rusty Delgado MD 112 [facility] 110 [place] [address] Social History Tobacco Use Types [...] Never 12/12/2023 How often do you attend hoahaoism or restoration serv ices? Never 12/12/2023 Do you belong to any clubs o r organizations such as hoahaoism groups, unions, fraternal or athletic groups, or [...] Recorded Patient Health Questionnaire-2 Score 2 05/15/2024 [employer] of Occupat ional [facility] - Occupational Stress Questionnaire Answer Date Recorded [...] were you homeless or living in a usp (including now)? No 12/12/2023 Sex and Gender [...] Visit [facility] [place] [facility] [address] [facility] 110 [place] [address] Rusty Delgado MD [address] [facility] 110 [place] [address] documented as of this encounter Visit Diagnoses Not on filedocumented in this encounter Care Teams Burlap Spreader Relationship Specialty Start Date End Date Rusty Delgado MD [address] [facility] 110 [place] [address] PCP - [employer] 04/17/22 Rusty Delgado MD [address] [place] [address] [place] [address] PCP - General Internal Medicine 11/23/22 documented as of this encounter
--- OUTSIDE RECORDS SUMMARY | 2024-11-19 02:22 | XMS_ITS | Encounter Summary ---
Author Organization [facility] Address [address] [place] [address] Care Team Providers Care Remedial Teacher Name Role Phone Rusty Delgado MD Unavailable [phone] Rusty Delgado MD Primary Care Provider Encounter Details Date Type Department Care Team (Late st Contact Info) Description 07/30/2024 Abstract [facility] [place] [facility] [address] [facility] 110 [place] [address] Rusty Delgado MD 112 [facility] 110 [place] [address] Social History Tobacco Use Types [...] Never 12/12/2023 How often do you attend zoroastrianism or catholic serv ices? Never 12/12/2023 Do you belong to any clubs o r organizations such as zoroastrianism groups, unions, fraternal or athletic groups, or [...] Recorded Patient Health Questionnaire-2 Score 2 05/15/2024 [facility] of Occupat ional [facility] - Occupational Stress Questionnaire Answer Date Recorded [...] Visit [facility] [place] [facility] [address] [facility] [address] [place] [address] Rusty Delgado MD [address] [facility] 110 [place] [address] documented as of this encounter Visit Diagnoses Not on filedocumented in this encounter Care Teams Remedial Teacher Relationship Specialty Start Date End Date Rusty Delgado MD [address] [facility] 110 [place] [address] PCP - [employer] 04/17/22 Rusty Delgado MD [address] [place] [address] [place] [address] PCP - General Internal Medicine 11/23/22 documented as of this encounter
--- OUTSIDE RECORDS SUMMARY | 2024-11-19 02:22 | XMS_ITS | Encounter Summary ---
Author Organization Address [address] [place] [address] Care Team Providers Care Senior Designer Name Role Phone Irena Johnson MD Unavailable Vanessa Arora MD Unavailable [phone] [place] WONG MD, Rusty Gomez Primary Care Provider [phone] Carina Ziegler RN Unavailable Unavailable Source Comments In the event this information is protected by the Federal Confidentiality of Alcohol and Drug AbusePatient Records regulations: The Federal rules restrict any use of the information to criminally investigate or prosecute any alcohol or drug abuse patient. Reason for Visit * Reason Comments Return Call Request Encounter Details Date Type Department Care Team (Late st Contact Info) Description 11/18/2024 Telephone Transplant Center [address] [id number] Coordinator, Liver [facility] [address] [place] [address] Return Call Request Social History Tobacco Use Types Packs/Day Years Used Date Smoking Tobacco: Former Cigarettes 1 20 1 04/20/1970 - 02/18/1991 Smokeless Tobacco: Never Alcohol Use Standard Drinks/Week Comments Not Currently 0 (1 standard drink = 0.6 oz pur e alcohol) Recovering alcoholic [facility] Utilities Answer Date Recorded In the past [...] is lower risk 7 04/25/2024 Data from: https://www.neighborhoodatlas.medicine.[employer] [facility] [employer].edu/. Last address used for calculation Eugene Genao 04/25/2024 Sex and Gender Information Value Date [...] of Assessment Author No 05/31/2024 4:27 PM EST Cecil Waggoner RN * Are you blind or do [...] Cecil Huntley RN documented in this encounter Miscellaneous Notes * Telephone Encounter - Cinthia Bishop - 11/18/2024 11:25 AM EDT Fabiana called in stating that she is returning Tara's call. Fabiana is requesting a call back at [phone]. documented in this encounter Plan of Treatment Upcoming Encounters Date Type Department Care Team (Late st Contact Info) Description 11/21/2024 4:00 PM EDT Office Visit Transplant Center [address] [address] [place] LASHAWN ARELLANO 11/21/2024 5:40 PM EDT Appointment MRI Q [address] [address] Compression fracture of cervical spine, non-traumatic, with delayed healing, subsequent encounter [M48.52XG] 11/21/2024 6:20 PM EDT Appointment MRI Q [address] [address] Compression fracture of cervical spine, non-traumatic, with delayed healing, subsequent encounter [M48.52XG] 11/21/2024 7:00 PM EDT Appointment MRI Q [address] [address] Compression fracture of cervical spine, non-traumatic, with delayed healing, subsequent encounter [M48.52XG] 02/03/2025 9:00 AM EDT [facility]rology [address] [place] [address] Devyn Roach MD [address] [place] [address] Vertigo [R42] 02/10/2025 11:00 AM EDT Appointment Gastroenterology [address] [address] Jane Correia MD 0 [place] [address] Schedule in about 3 months to remove biliary stent documented as of this encounter Goals Goal Patient Goal Type Associated Problems Recent Progress Patient-Stated? Author Blood Pressure < 130/80 Blood Pressure 122/80( 025 5:30 PM EDT) No Vaenssa Arora MD documented as of this encounter Visit Diagnoses Not on filedocumented in this encounter Care Teams Senior Designer Relationship Specialty Start Date End Date Rusty Delgado II, MD 112 [facility] 110 [place] [address] PCP - General Internal Medicine 05/28/24 Irena Johnson MD 3000 [facility] 1620 [facility] [place] [place] [address] Referring Gastroenterology 03/12/24 Vanessa Arora MD 9500 [place] [address] Primary Staff Physician Cardiology 05/02/24 Carina Ziegler, RN [facility] [address] [place] [address] Registered Nurse Transplant Center 09/17/24 documented as of this encounter
--- OUTSIDE RECORDS SUMMARY | 2024-11-19 02:22 | XMS_ITS | Encounter Summary ---
Author Organization [facility] Address [address] [place] [address] Care Team Providers Care Chick Room Supervisor Name Role Phone Tanisha Vazquez MD Primary Care Provider [phone] Irena Johnson MD Unavailable Vanessa Arora MD Unavailable [phone] [place] WONG MD, Daniel B Primary Care Provider [phone] Carina Ziegler RN Unavailable Unavailable Source Comments In the event this information is protected by the Federal Confidentiality of Alcohol and Drug AbusePatient Records regulations: The Federal rules restrict any use of the information to criminally investigate or prosecute any alcohol or drug abuse patient.[facility] Encounter Details Date Type Department Care Team (Late st Contact Info) Description 11/29/2016 Patient Msg Dermatology [address] [place], [place] [id number] Mitch Golden MD [address] [place], [place] [address] RE: Appointment Cancellation Request Social History Tobacco Use Types Packs/Day Years Used Date Smoking Tobacco: Former Cigarettes 1 20 1 04/20/1970 - 02/18/1991 Alcohol Use Standard Drinks/Week Comments Yes 10 (1 standard drink = 0.6 oz pu re alcohol) 1-2 drinks nightly Sex and Gender Information Value Date Recorded Sex Assigned at Male 04/23/2024 12:19 PM EST Legal Sex Male 10:09 AM EST Gender Identity Male 04/23/2024 12:19 PM EST Sexual Orientation Straight 04/23/2024 12 :19 PM EST documented as of this encounter Functional Status * Are you deaf or do you have serious difficulty hearing? Answer Date of Assessment Author No 08/28/2014 2:34 PM Bebe Gutierrez MA * Are you blind or do you have serious difficulty seeing, even when wearing glasses? Answer Date of Assessment Author No 08/28/2014 2:34 PM Bebe Gutierrez MA * Do you have serious difficulty walking or climbing stairs? Answer Date of Assessment Author No 08/28/2014 2:34 PM Bebe Gutierrez MA * Do you have difficulty dressing or bathing? Answer Date of Assessment Author No 08/28/2014 2:34 PM Bebe Gutierrez MA * Because of a physical, mental, or emotional condition, do you have difficulty doing errands alone such as visiting a doctor's office or shopping? Answer Date of Assessment Author No 08/28/2014 2:34 PM Bebe Gutierrez MA documented as of this encounter Mental Status * Because of a physical, mental, or emotional condition, do you have serious difficulty concentrating, remembering, or making decisions? Answer Entry Date Author No 08/28/2014 2:34 PM Bebe Gutierrez MA documented in this encounter Plan of Treatment Upcoming Encounters Date Type Department Care Team (Late st Contact Info) Description 11/21/2024 4:00 PM EDT Office Visit Transplant Center [address] [address] KAYLIE ARELLANO 11/21/2024 5:40 PM EDT Appointment MRI Q [address] [address] Compression fracture of cervical spine, non-traumatic, with delayed healing, subsequent encounter [M48.52XG] 11/21/2024 6:20 PM EDT Appointment MRI Q [address] [address] Compression fracture of cervical spine, non-traumatic, with delayed healing, subsequent encounter [M48.52XG] 11/21/2024 7:00 PM EDT Appointment MRI Q [address] [address] Compression fracture of cervical spine, non-traumatic, with delayed healing, subsequent encounter [M48.52XG] 02/03/2025 9:00 AM EDT [facility] Neurology [address] [place] [address] Devyn Roach MD [address] [place] [address] Vertigo [R42] 02/10/2025 11:00 AM EDT Appointment Gastroenterology [address] [address] Jane Correia MD [address]00 [place] [address] Schedule in about 3 months to remove biliary stent documented as of this encounter Visit Diagnoses Not on filedocumented in this encounter Additional Health Concerns Infection Onset Date Last Indicated Resolved Time COVID-19 Rule-Out 09/08/2024 09/08/2024 09/08/2024 6:09 PM EDT COVID-19 Rule-Out 10/08/2024 10/08/2024 10/09/2024 1:41 AM EDT Respiratory Rule-Out 10/08/2024 10/08/2024 025 1:41 AM EDT Parainfluenza Virus Comment:Asymptomatic per RN 10/08/2024 10/08/2024 10/28/2024 8 :47 AM EDT documented as of this encounter Care Teams Chick Room Supervisor Relationship Specialty [place] [address] [place] [address] PCP - General Family Medicine 11/26/12 04/04/17 Rusty Delgado II, MD 112 [facility] 110 [place] [address] PCP - General Internal Medicine 05/28/24 Irena Johnson MD 3000 [facility] [address]20 [place] [id number] Referring Gastroenterology 03/12/24 Vanessa Arora MD [address] [place] [address] Primary Staff Physician Cardiology 05/02/24 Carina Ziegler, RN [facility] [address] [place] [address] Registered Nurse Transplant Center 09/17/24 documented as of this encounter
--- OUTSIDE RECORDS SUMMARY | 2024-11-19 02:22 | XMS_ITS | Encounter Summary ---
Author Organization [facility] Address [address] [place] [address] Care Team Providers Care Lift Builder Whole Name Role Phone Rusty Delgado MD Unavailable [phone] Rusty Delgado MD Primary Care Provider Encounter Details Date Type Department Care Team (Late st Contact Info) Description 09/03/2024 Abstract [facility] [place] [facility] [address] [facility] 110 [place] [address] Rusty Delgado MD 112 [facility] 110 [place] [address] Social History Tobacco Use Types [...] Never 12/12/2023 How often do you attend restorationism or mormonism serv ices? Never 12/12/2023 Do you belong to any clubs o r organizations such as restorationism groups, unions, fraternal or athletic groups, or [...] Answer Date Recorded Patient Health Questionnaire-2 Score 0 08/19/2024 [facility] of Occupat ional [facility] - Occupational Stress Questionnaire Answer [...] Visit [facility] [place] [address] [facility] [address] [place] [address] Rusty Delgado MD [address] [facility] 110 [place] [address] documented as of this encounter Visit Diagnoses Not on filedocumented in this encounter Care Teams Lift Builder Whole Relationship Specialty Start Date End Date Rusty Delgado MD [address] [facility] 110 [place] [address] PCP - [employer] 04/17/22 Rusty Delgado MD [address] [facility] [address] [place] [address] PCP - General Internal Medicine 11/23/22 documented as of this encounter
--- OUTSIDE RECORDS SUMMARY | 2024-11-19 02:22 | XMS_ITS | Encounter Summary ---
Author Organization [facility] Address [address] [place] [address] Care Team Providers Care Truck Leasing Manager Name Role Phone Rusty Delgado MD Unavailable [phone] Rusty Delgado MD Primary Care Provider [phone] Encounter Details Date Type Department Care Team (Late st Contact Info) Description 04/03/2024 Clinisync Result Encounter [facility] External Department Unsolicited Provider, Generic External Data Social History Tobacco Use Types Packs/Day Years [...] Never 12/12/2023 How often do you attend yazdanism or buddhist serv ices? Never 12/12/2023 Do you belong to any clubs o r organizations such as yazdanism groups, unions, fraternal or athletic groups, or [...] and heating? Not hard at all 12/12/2023 [facility] [place] of Occupat ional Health - Occupational Stress [...] any time in the past 12 m [facility], were you homeless or living in a chcf (including now)? No 12/12/2023 Sex and Gender [...] 11/20/2024 11:00 AM EDT Office Visit [facility] [place] [facility] 112 [facility] 110 [place] [address] Rusty Delgado MD 112 [facility] 110 [place] [address] documented as of this encounter Procedures Procedure Name Priority Date/Time Associated Diagnosis Comments US PARACENTESIS ABD W/IMAGE 04/03/2024 11:05 AM EST documented in this encounter Results * US PARACENTESIS ABD W/IMAGE (04/03/2024 11:05 AM EST) Anatomical Region Laterality Modality Other 04/03/2024 11:0 5 AM EST Narrative 04/03/2024 11:08 [place] [address] Ultrasound Report Signed Patient: CHARLES BLANDON MR#: [id number] : 1955 Acct:[id number] Age/Sex: 68 / M ADM Date: 04/03/24 Loc: US Attending Dr: Non-Staff Physician Eriberto Ordering Physician: Maddy Duarte M.D. Date of Service: 04/03/24 Procedure(s): US paracentesis abd w/image Accession Number(s): [id number] cc: RUSTY DELGADO ; PhysicianYolandaStaff Eriberto The [address] [address] Patient Name: CHARLES BLANDON MRN: [facility]:[id number] date: 1955 Sex: M Assigned Patient Location: US Current Patient Location: US Accession/Order Number: [id number] Exam Date: 04/03/2024 07:30 Report Date: 04/03/2024 11:05 At the request of: NON-STAFF PHYSICIAN Procedure: US paracentesis abd w/image EXAMINATION: US paracentesis abd w/image HISTORY: Alcoholic cirrhosis of live with ascites COMPARISON: Ultrasound paracentesis 01/24/2024 DESCRIPTION: Informed consent was obtained. The patient was prepped and draped in standard sterile fashion. Ultrasound-guided paracentesis was performed in the usual sterile manner using 1% Xylocaine. FINDINGS: SITE: Right lower quadrant NEEDLE: Paracentesis 8 Fr. catheter over 18 gauge needle MEDICATION: 1% buffered Xylocaine for local anesthesia FLUID DESCRIPTION: Yellowish, slightly opaque FLUID VOLUME: 6.25 L COMPLICATIONS: None LABORATORY: None (therapeutic) OTHER: Negative. US/US paracentesis abd w/image IMPRESSION: 1. Successful removal of 6.25 L of fluid. Electronically authenticated by: WARD STERN Date: 04/03/2024 11:05 Dictated By: Ward Stern M.D. Signed By: 04/03/24 1108 DD/ 1105 TD/TT: Farm Machinery Set Up Mechanic: Procedure Note Radiology, Radiologist, - 04/03/2024 [place] [address] Ultrasound Report Signed Patient: CHARLES BLANDON EMR#: [id number] : 1955cct:[id number] Age/Sex: 68 / MADM Date: 04/03/24 Loc: US Attending Dr: Non-Staff Physician Wei Ordering Physician: Maddy Duarte M.D. Date of Service: 04/03/24 Procedure(s): US paracentesis abd w/image Accession Number(s): [id number] cc: RUSTY DELGADO ; Physician,YolandaStaff Eriberto The [address] [address] Patient Name: CHARLES BLANDON MRN: [id number] date: 1955 Sex: M Assigned Patient Location: US Current Patient Location: US Accession/Order Number: [id number] Exam Date: 04/03/2024 07:30 Report Date: 04/03/2024 11:05 At the request of: NON-STAFF PHYSICIAN Procedure: US paracentesis abd w/image EXAMINATION: US paracentesis abd w/image HISTORY: Alcoholic cirrhosis of live with ascites COMPARISON: Ultrasound paracentesis 01/24/2024 DESCRIPTION: Informed consent was obtained. The patient was prepped anddraped in standard sterile fashion. Ultrasound-guided paracentesis was performedin the usual sterile manner using 1% Xylocaine. FINDINGS: SITE: Right lower quadrant NEEDLE: Paracentesis 8 Fr. catheter over 18 gauge needle MEDICATION: 1% buffered Xylocaine for local anesthesia FLUID DESCRIPTION: Yellowish, slightly opaque FLUID VOLUME: 6.25 L COMPLICATIONS: None LABORATORY: None (therapeutic) OTHER: Negative. US/US paracentesis abd w/image IMPRESSION: 1. Successful removal of 6.25 L of fluid. Electronically authenticated by: WARD STERN Date: 04/03/2024 11:05 Dictated By: Ward Stern M.D. Signed By:04/03/24 1108 DD/ 1105 TD/TT: Farm Machinery Set Up Mechanic: us Generic External Data Provider [facility] Final Result documented in this encounter Visit Diagnoses Not on filedocumented in this encounter Care Teams Truck Leasing Manager Relationship Specialty Start Date End Date Rusty Delgado MD [address] [facility] 110 [place] [address] PCP - [employer] 04/17/22 Rusty Delgado MD [address] [address] PCP - General Internal Medicine 11/23/22 documented as of this encounter
--- OUTSIDE RECORDS SUMMARY | 2024-11-19 02:22 | XMS_ITS | Encounter Summary ---
Author Organization [facility] Address [facility] [place] [address] Care Team Prov[address] Care Ct Scan Technician Name Role Phone Irena Johnson MD Unavailable Vanessa Arora MD Unavailable [phone] [place] WONG MD, Rusty Gomez Primary Care Provider [phone] Carina Ziegler RN Unavailable Unavailable Source Comments In the event this information is protected by the Federal Confidentiality of Alcohol and Drug AbusePatient Records regulations: The Federal rules restrict any use of the information to criminally investigate or prosecute any alcohol or drug abuse patient.[facility] Reason for Visit * Reason Comments f/u dc phone call Encounter Details Date Type Department Care Team (Late st Contact Info) Description 11/18/2024 Telephone Transplant Center [address] [place] [id number] Carina Ziegler, LEO [address] [address] f/u dc phone call Social History Tobacco Use Types Packs/Day Years Used Date Smoking Tobacco: Former Cigarettes 1 20 1 04/20/1970 - 02/18/1991 Smokeless Tobacco: Never Alcohol Use Standard Drinks/Week Comments Not Currently 0 (1 standard drink = 0.6 oz pur e alcohol) Recovering alcoholic [facility] Utilities Answer Date Recorded In the [...] is lower risk 7 04/25/2024 Data from: https://www.neighborhoodatlas.medicine.[facility].edu/. Last address used for calculation Eugene Genao [...] encounter Miscellaneous Notes * Telephone Encounter - Carina Ziegler RN - 11/18/2024 10:48 AM EDT Called and l/m for pt's to call back with updates [facility] Carina Ziegler RN (Molly), BSN, [facility] Liver Forming Process Worker documented in this encounter Plan of Treatment Upcoming Encounters Date Type Department Care Team (Late st Contact Info) Description 11/21/2024 4:00 PM EDT Office Visit Transplant Center [address] [address] KAYLIE ARELLANO 11/21/2024 5:40 PM EDT Appointment MRI Q [address] [address] Compression fracture of cervical spine, non-traumatic, with delayed healing, subsequent encounter [M48.52XG] 11/21/2024 6:20 PM EDT Appointment MRI Q [address] [address] Compression fracture of cervical spine, non-traumatic, with delayed healing, subsequent encounter [M48.52XG] 11/21/2024 7:00 PM EDT Appointment MRI Q [address] [address] Compression fracture of cervical spine, non-traumatic, with delayed healing, subsequent encounter [M48.52XG] 02/03/2025 9:00 AM EDT [facility] Neurology 9300 [place] [address] Devyn Roach MD 9500 [place], [place] [id number] Vertigo [R42] 02/10/2025 11:00 AM EDT Appointment Gastroenterology [address] [address] Jane Correia MD 0 [place] [address] Schedule in about 3 months to remove biliary stent documented as of this encounter Goals Goal Patient Goal Type Associated Problems Recent Progress Patient-Stated? Author Blood Pressure < 130/80 Blood Pressure 122/80( 025 5:30 PM EDT) No Vanessa Arora MD documented as of this encounter Visit Diagnoses Not on filedocumented in this encounter Care Teams Ct Scan Technician Relationship Specialty Start Date End Date Rusty Delgado II, MD 112 [facility] 110 [place] [address] PCP - General Internal Medicine 05/28/24 Irena Johnson MD 3000 [facility] 1620 [facility] [place] [phone] Referring Gastroenterology 03/12/24 Vaenssa Arora MD 9500 [place] [address] Primary Staff Physician Cardiology 05/02/24 Carina Ziegler, RN [facility] [address] [place] [address] Registered Nurse Transplant Center 09/17/24 documented as of this encounter
--- OUTSIDE RECORDS SUMMARY | 2024-11-19 02:22 | XMS_ITS | Encounter Summary ---
Author Organization [facility] Address [address] [place] [address] Care Team Providers Care Certified Substance Abuse Counselor Name Role Phone Tanisha Vazquez MD Primary Care Provider [phone] Irena Johnson MD Unavailable Vanessa Arora MD Unavailable [phone] [place] WONG MD, Rusty Gomez Primary Care Provider [phone] Carina Ziegler RN Unavailable Unavailable Source Comments In the event this information is protected by the Federal Confidentiality of Alcohol and Drug AbusePatient Records regulations: The Federal rules restrict any use of the information to criminally investigate or prosecute any alcohol or drug abuse patient.[facility] Encounter Details Date Type Department Care Team (Late st Contact Info) Description 01/02/2017 Patient Msg Family Medicine [address] [place] [address] [place] [address] [place] [address] Request an Appointment Social History Tobacco Use Types Packs/Day Years [...] EDT Office Visit Transplant Center [address] [address] KAYLIE ARELLANO 11/21/2024 5:40 PM EDT Appointment MRI Q [address] [address] Compression fracture of cervical spine, non-traumatic, with delayed healing, subsequent encounter [M48.52XG] 11/21/2024 6:20 PM EDT Appointment MRI Q [address] [address] Compression fracture of cervical spine, non-traumatic, with delayed healing, subsequent encounter [M48.52XG] 11/21/2024 7:00 PM EDT Appointment MRI Q [address] [address] Compression fracture of cervical spine, non-traumatic, with delayed healing, subsequent encounter [M48.52XG] 02/03/2025 9:00 AM EDT [facility] Neurology [address] [place] [address] Devyn Roach MD [address] [place] [address] Vertigo [R42] 02/10/2025 11:00 AM EDT Appointment Gastroenterology [address] [address] Jane Correia MD 0 [place] [address] Schedule in about 3 months to remove [...] documented as of this encounter Care Teams Certified Substance Abuse Counselor Relationship Specialty [place] [address] [place] [address] PCP - General Family Medicine 11/26/12 04/04/17 Rusty Delgado II, MD 112 [facility] 110 [place] [address] PCP - General Internal Medicine 05/28/24 Irena Johnson MD 3000 [facility] 1620 [place] [phone] Referring Gastroenterology 03/12/24 Vanessa Arora MD [address] [place] [address] Primary Staff Physician Cardiology 05/02/24 Carina Ziegler, RN [facility] 5608 [facility] [place] [address] Registered Nurse Transplant Center 09/17/24 documented as of this encounter
--- OUTSIDE RECORDS SUMMARY | 2024-11-19 02:22 | XMS_ITS | Encounter Summary ---
Author Organization [facility] Address [address] [place] [address] Care Team Providers Care Technical Lead Name Role Phone Rusty Delgado MD Unavailable [phone] Rusty Delgado MD Primary Care Provider [phone] Encounter Details Date Type Department Care Team (Late st Contact Info) Description 03/12/2024 Clinisync Result Encounter [facility] External Department Unsolicited [...] Never 12/12/2023 How often do you attend buddhism or alevism serv ices? Never 12/12/2023 Do you belong to any clubs o r organizations such as buddhism groups, unions, fraternal or athletic groups, or [...] and heating? Not hard at all 12/12/2023 [facility] of Occupat ional Health - Occupational Stress [...] any time in the past 12 m [facility], were you homeless or living in a nursing home (including now)? No 12/12/2023 Sex and Gender [...] AM EDT Office Visit [facility] [place] [facility] 112 [facility] 110 [place] [address] Rusty Delgado MD 112 [facility] 110 [place] [address] documented as of this encounter Procedures Procedure Name Priority Date/Time Associated Diagnosis Comments US PARACENTESIS ABD W/IMAGE 03/12/2024 6:44 AM EST documented in this encounter Results * US PARACENTESIS ABD W/IMAGE (03/12/2024 6:44 AM EST) Anatomical Region Laterality Modality Other 03/12/2024 6:44 AM EST Narrative 03/12/2024 6:46 [place] [address] Ultrasound Report Signed Patient: CHARLES BLANDON MR#: [id number] : 1955 Acct:[id number] Age/Sex: 68 / M ADM Date: 03/11/24 Loc: US Attending Dr: Non-Staff Physician Eriberto Ordering Physician: PhysicianMaddy M.D. Date of Service: 03/11/24 Procedure(s): US paracentesis abd w/image Accession Number(s): [id number] cc: RUSTY DELGADO ; PhysicianBryanna-Staff Eriberto The [address] [address] Patient Name: CHARLES BLANDON MRN: [facility]:[id number] date: 1955 Sex: M Assigned Patient Location: US Current Patient Location: Accession/Order Number: [id number] Exam Date: 03/11/2024 12:48 Report Date: 03/12/2024 06:44 At the request of: NON-STAFF PHYSICIAN Procedure: US paracentesis abd w/image EXAMINATION: US paracentesis abd w/image HISTORY: alcoholic cirrhosis of liver with ascites COMPARISON: No relevant comparison available. DESCRIPTION: Informed consent was obtained. The patient was prepped and draped in standard sterile fashion. Ultrasound-guided paracentesis was performed in the usual sterile manner using 1% Xylocaine. FINDINGS: SITE: Left lower quadrant NEEDLE: Paracentesis 8 Fr. catheter over 18 gauge needle MEDICATION: 1% buffered Xylocaine for local anesthesia FLUID DESCRIPTION: Slightly opaque yellowish fluid. FLUID VOLUME: 6.1 L COMPLICATIONS: None LABORATORY: None (therapeutic) OTHER: Negative. US/US paracentesis abd w/image IMPRESSION: 1. Successful ultrasound-guided paracentesis with removal of 6.1 L of slightly opaque yellowish fluid. Electronically authenticated by: WARD STERN Date: 03/12/2024 06:44 Dictated By: Ward Stern M.D. Signed By: 03/12/2446 DD/ TD/TT: Plastics Plater: Procedure Note Radiology, Radiologist, - 03/12/2024 [place] [address] Ultrasound Report Signed Patient: CHARLES BLANDON EMR#: [id number] : 1955cct:[id number] Age/Sex: 68 / MADM Date: 03/11/24 Loc: US Attending Dr: Bryanna-Staff Physician Wei Ordering Physician: Maddy Duarte M.D. Date of Service: 03/11/24 Procedure(s): US paracentesis abd w/image Accession Number(s): [id number] cc: RUSTY DELGADO ; PhysicianMaddy M.D. The [address] [address] Patient Name: CHARLES BLANDON MRN: [id number] date: 1955 Sex: M Assigned Patient Location: US Current Patient Location: Accession/Order Number: [id number] Exam Date: 03/11/2024 12:48 Report Date: 03/12/2024 06:44 At the request of: NON-STAFF PHYSICIAN Procedure: US paracentesis abd w/image EXAMINATION: US paracentesis abd w/image HISTORY: alcoholic cirrhosis of liver with ascites COMPARISON: No relevant comparison available. DESCRIPTION: Informed consent was obtained. The patient was prepped anddraped in standard sterile fashion. Ultrasound-guided paracentesis was performedin the usual sterile manner using 1% Xylocaine. FINDINGS: SITE: Left lower quadrant NEEDLE: Paracentesis 8 Fr. catheter over 18 gauge needle MEDICATION: 1% buffered Xylocaine for local anesthesia FLUID DESCRIPTION: Slightly opaque yellowish fluid. FLUID VOLUME: 6.1 L COMPLICATIONS: None LABORATORY: None (therapeutic) OTHER: Negative. US/US paracentesis abd w/image IMPRESSION: 1. Successful ultrasound-guided paracentesis with removal of 6.1 L ofslightly opaque yellowish fluid. Electronically authenticated by: WARD STERN Date: 03/12/2024 06:44 Dictated By: Ward Stern M.D. Signed By:03/12/2446 DD/ TD/TT: Plastics Plater: us Generic External Data Provider [facility] Final Result documented in this encounter Visit Diagnoses Not on filedocumented in this encounter Care Teams Technical Lead Relationship Specialty Start Date End Date Rusty Delgado MD [address] [facility] 110 [place] [address] PCP - [employer] 04/17/22 Rusty Delgado MD [address] [facility] 110 [place] [address] PCP - General Internal Medicine 11/23/22 documented as of this encounter
--- OUTSIDE RECORDS SUMMARY | 2024-11-19 02:22 | XMS_ITS | Encounter Summary ---
Author Organization [facility] Address [address] [place] [address] Care Team Providers Care Port Cdl A Driver Name Role Phone Rusty Delgado MD Unavailable [phone] Rusty Delgado MD Primary Care Provider Encounter Details Date Type Department Care Team (Late st Contact Info) Description 07/26/2024 Abstract [facility] [place] [facility] [facility] [address] [facility] 110 [place] [phone] Rusty Delgado MD 112 [facility] 110 [place] [address] Social History Tobacco Use Types [...] Never 12/12/2023 How often do you attend advent or zoroastrian serv ices? Never 12/12/2023 Do you belong to any clubs o r organizations such as advent groups, unions, fraternal or athletic groups, or [...] Recorded Patient Health Questionnaire-2 Score 2 05/15/2024 [facility] of Occupat ional [facility] - Occupational Stress Questionnaire Answer Date [...] were you homeless or living in a custodial (including now)? No 12/12/2023 Sex and Gender [...] Visit [facility] [place] [address] [facility] 110 [place] [address] Rusty Delgado MD [address] [facility] 110 [place] [address] documented as of this encounter Visit Diagnoses Not on filedocumented in this encounter Care Teams Port Cdl A Driver Relationship Specialty Start Date End Date Rusty Delgado MD [address] [facility] 110 [place] [address] PCP - [employer] 04/17/22 Rusty Delgado MD [address] [place] [address] [place] [address] PCP - General Internal Medicine 11/23/22 documented as of this encounter
--- OUTSIDE RECORDS SUMMARY | 2024-11-19 02:22 | XMS_ITS | Encounter Summary ---
Author Organization [facility] Address [address] [place] [address] Care Team Providers Care Slurry Man Name Role Phone Rusty Delgado MD Unavailable [phone] Rusty Delgado MD Primary Care Provider Encounter Details Date Type Department Care Team (Late st Contact Info) Description 08/07/2024 Abstract [facility] [place] [address] [facility] 110 [place] [phone] Rusty Delgado MD 112 [facility] 110 [place] [address] Social History Tobacco Use Types [...] Never 12/12/2023 How often do you attend jewish or caodaism serv ices? Never 12/12/2023 Do you belong to any clubs o r organizations such as jewish groups, unions, fraternal or athletic groups, or [...] Recorded Patient Health Questionnaire-2 Score 2 05/15/2024 [facility] of Occupat ional [facility] - Occupational Stress Questionnaire Answer Date Recorded [...] were you homeless or living in a group home (including now)? No 12/12/2023 Sex and [...] Visit [facility] [place] [address] [facility] 110 [place] [address] Rusty Delgado MD [address] [facility] 110 [place] [address] documented as of this encounter Visit Diagnoses Not on filedocumented in this encounter Care Teams Slurry Man Relationship Specialty Start Date End Date Rusty Delgado MD [address] [facility] 110 [place] [address] PCP - [employer] 04/17/22 Rusty Delgado MD [address] [place] [address] [place] [address] PCP - General Internal Medicine 11/23/22 documented as of this encounter
--- OUTSIDE RECORDS SUMMARY | 2024-11-19 02:22 | XMS_ITS | Encounter Summary ---
Author Organization [facility] Address [address] [place] [address] Care Team Providers Care Cop Breaker Name Role Phone Irena Johnson MD Unavailable Vanessa Arora MD Unavailable [phone] [place] WONG MD, Rusty Gomez Primary Care Provider [phone] Carina Ziegler RN Unavailable Unavailable Source Comments In the event this information is protected by the Federal Confidentiality of Alcohol and Drug AbusePatient Records regulations: The Federal rules restrict any use of the information to criminally investigate or prosecute any alcohol or drug abuse patient.[facility] Encounter Details Date Type Department Care Team (Late st Contact Info) Description 05/29/2024 Get Medical Advice Transplant Center [address] [id number] Connie Garg MD [address]19 [place] [address] Swelling Social History Tobacco Use Types Packs/Day Years Used Date Smoking Tobacco: Former Cigarettes 1 20 1 04/20/1970 - 02/18/1991 Alcohol Use Standard Drinks/Week Comments Not Currently 0 (1 standard drink = 0.6 oz pur e alcohol) Area Deprivation Index Answer Date Zac rded National Score (1-100), lower number is lower ri sk 80 04/25/2024 State Score (1-10), lower number is lower risk 7 04/25/2024 Data from: https://www.neighborhoodatlas.medicine.[facility]/. Last address used for calculation Eugene [...] PM EDT Office Visit Transplant Center 2048 [place] [address] KAYLIE ARELLANO 11/21/2024 5:40 PM EDT Appointment MRI Q [address] [address] Compression fracture of cervical spine, non-traumatic, with delayed healing, subsequent encounter [M48.52XG] 11/21/2024 6:20 PM EDT Appointment MRI Q [address] [address] Compression fracture of cervical spine, non-traumatic, with delayed healing, subsequent encounter [M48.52XG] 11/21/2024 7:00 PM EDT Appointment MRI Q [address] [address] Compression fracture of cervical spine, non-traumatic, with delayed healing, subsequent encounter [M48.52XG] 02/03/2025 9:00 AM EDT [facility] Neurology 9300 [place] [address] Devyn Roach MD 9500 [place] [address] Vertigo [R42] 02/10/2025 11:00 AM EDT Appointment Gastroenterology [address] [address] Jane Correia MD 9500 [place] [address] Schedule in about 3 months to remove [...] documented as of this encounter Care Teams Cop Breaker Relationship Specialty Start Date End Date Rusty Delgado II, MD 112 [facility] 110 [place] [address] PCP - General Internal Medicine 05/28/24 Irena Johnson MD 3000 [facility] 1620 [place] [phone] Referring Gastroenterology 03/12/24 Vanessa Arora MD 8375 [place] [address] Primary Staff Physician Cardiology 05/02/24 Carina Ziegler, RN [facility] [address] [place] [address] Registered Nurse Transplant Center 09/17/24 documented as of this encounter
--- OUTSIDE RECORDS SUMMARY | 2024-11-19 02:23 | XMS_ITS | Encounter Summary ---
Author Organization [facility] Address [address] [place] [address] Care Team Providers Care Publications Distribution Clerk Name Role Phone Irena Johnson MD Unavailable Vanessa Arora MD Unavailable [phone] [place] WONG MD, Rusty Gomez Primary Care Provider [phone] Carina Ziegler RN Unavailable Unavailable Source Comments In the event this information is protected by the Federal Confidentiality of Alcohol and Drug AbusePatient Records regulations: The Federal rules restrict any use of the information to criminally investigate or prosecute any alcohol or drug abuse patient.[facility] Encounter Details Date Type Department Care Team (Late st Contact Info) Description 11/08/2024 Lab Requisition [facility] [address] [place], [place] [id number] [place] [address] [address] [place] [phone] Social History Tobacco Use Types Packs/Day Years Used Date Smoking Tobacco: Former Cigarettes 1 20 1 04/20/1970 - 02/18/1991 Alcohol Use Standard Drinks/Week Comments Not Currently 0 (1 standard drink = 0.6 oz pur e alcohol) Recovering alcoholic [facility] Utilities Answer Date Recorded In the [...] is lower risk 7 04/25/2024 Data from: https://www.neighborhoodatlas.medicine.[facility].edu/. Last address used for calculation Eugene Genao [...] Cecil Huntley RN documented in this encounter Plan of Treatment Upcoming Encounters Date Type Department Care Team (Late st Contact Info) Description 11/21/2024 4:00 PM EDT Office Visit Transplant Center [address] [address] KAYLIE ARELLANO 11/21/2024 5:40 PM EDT Appointment MRI Q [address] [address] Compression fracture of cervical spine, non-traumatic, with delayed healing, subsequent encounter [M48.52XG] 11/21/2024 6:20 PM EDT Appointment MRI Q [address] [address] Compression fracture of cervical spine, non-traumatic, with delayed healing, subsequent encounter [M48.52XG] 11/21/2024 7:00 PM EDT Appointment MRI Q [address] [address] Compression fracture of cervical spine, non-traumatic, with delayed healing, subsequent encounter [M48.52XG] 02/03/2025 9:00 AM EDT [facility] Neurology 9300 [place] [address] Devyn Roach MD [address]00 [place] [address] Vertigo [R42] 02/10/2025 11:00 AM EDT Appointment Gastroenterology [address] [address] Jane Correia MD 9500 [place] [address] Schedule in about 3 months to remove biliary stent documented as of this encounter Goals Goal Patient Goal Type Associated Problems Recent Progress Patient-Stated? Author Blood Pressure < 130/80 Blood Pressure 122/80( 025 5:30 PM EDT) No Vanessa Arora MD documented as of this encounter Procedures Procedure Name Priority Date/Time Associated Diagnosis Comments URINALYSIS, REFLEX MICROSCOPIC Routine 11/08/2024 6:23 PM EDT documented in this encounter Results * (ABNORMAL) URINALYSIS, REFLEX MICROSCOPIC (11/08/2024 6:23 PM EDT) Color Yellow yellow 11/08/2024 10:10 PM [facility] Clarity Clear Clear 11/08/2024 10:10 PM [facility] Glucose, Urine Negative Trace, Negative 11/08/2024 10:10 PM [facility] Bilirubin, Urine Negative Negative 11/09/19 10:10 PM [facility] Ketones, Urine Negative Negative, Trace 11/08/2024 10:10 PM [facility] Specific [place], Ur 1.021 1.005 - 1.030 11/08/2024 10:10 PM [facility] Hemoglobin/Blood ,Ur Negative Negative, Trace 11/08/2024 10:10 PM [facility] pH, Urine 6.5 5.0 - 8.0 11/08/2024 10:10 PM [facility] Protein, Urine Trace Trace, Negative 11/08/2024 10:10 PM EDT [facility] Urobilinogen Normal Normal 11/08/2024 10:10 PM EDT [facility] Nitrites Negative Negative 11/08/2024 10:10 PM EDT [facility] Leuk Esterase Negative Negative, 25 Eder/uL 11/08/2024 10:10 PM EDT [facility] WBC, Urine 0-5 /HPF 0-5 /HPF 11/08/2024 10:10 PM EDT [facility] RBC, Urine 0-3 /HPF 0-3 /HPF 11/08/2024 10:10 PM EDT [facility] Bacteria Few(A) None Seen /HPF 11/08/2024 10:10 PM EDT [facility] Squamous Epithelial Cells Few /HPF 11/08/2024 10:10 PM EDT [facility] Casts, Hyaline >10 /LPF(A) 0 /LPF 10:10 PM T [facility] Urine URINE SPECIMEN / Unknown 11/08/2024 6:23 PM EDT 11/08/2024 9:55 PM EDT us Betty Dias DO LABORATORY Final Result [facility] [address] [facility] [address], documented in this encounter Visit Diagnoses Not on filedocumented in this encounter Care Teams Publications Distribution Clerk Relationship Specialty Start Date End Date Rusty Delgado II, MD 112 [facility] 110 [place] [address] PCP - General Internal Medicine 05/28/24 Irean Johnson MD 3000 [facility] [address] [facility] [place] [address] Referring Gastroenterology 03/12/24 Vanessa Arora MD [address] [place] [address] Primary Staff Physician Cardiology 05/02/24 Carina Ziegler, RN [facility] [address] [place] [address] Registered Nurse Transplant Center 09/17/24 documented as of this encounter
--- OUTSIDE RECORDS SUMMARY | 2024-11-19 02:23 | XMS_ITS | Encounter Summary ---
Author Organization [facility] Address [address] [place] [address] Care Team Providers Care Automation Manager Name Role Phone Irena Johnson MD Unavailable Vanessa Arora MD Unavailable [phone] Danny WONG MD, Rusty Gomez Primary Care Provider [phone] Carina Ziegler RN Unavailable Unavailable Source Comments In the event this information is protected by the Federal Confidentiality of Alcohol and Drug AbusePatient Records regulations: The Federal rules restrict any use of the information to criminally investigate or prosecute any alcohol or drug abuse patient.[facility] Encounter Details Date Type Department Care Team (Late st Contact Info) Description 11/06/2024 GI Preprocedure Call Gastroenterology [address] [address] Raquel Rodrigues, LEO Social History Tobacco Use Types Packs/Day Years Used Date Smoking Tobacco: Former Cigarettes 1 20 1 04/20/1970 - 02/18/1991 Alcohol Use Standard Drinks/Week Comments Not Currently 0 (1 standard drink = 0.6 oz pur e alcohol) Recovering alcoholic [facility] Utilities Answer Date Recorded In [...] is lower risk 7 04/25/2024 Data from: https://www.neighborhoodatlas.medicine.[facility].edu/. Last address used for calculation Eugene Villanueva [...] Cecil Huntley RN documented in this encounter Nursing Notes * Raquel Rodrigues RN - 11/06/2024 4:33 PM EDT Spoke with patient's . She stated he is in a rehab center and she spoke with the coordinator about the procedure. She was given the number to reschedule. documented in this encounter Plan of Treatment Upcoming Encounters Date Type Department Care Team (Late st Contact Info) Description 11/21/2024 4:00 PM EDT Office Visit Transplant Center [address] [address] KAYLIE ARELLANO 11/21/2024 5:40 PM EDT Appointment MRI Q [address] [address] Compression fracture of cervical spine, non-traumatic, with delayed healing, subsequent encounter [M48.52XG] 11/21/2024 6:20 PM EDT Appointment MRI Q [address] [address] Compression fracture of cervical spine, non-traumatic, with delayed healing, subsequent encounter [M48.52XG] 11/21/2024 7:00 PM EDT Appointment MRI Q [address] [address] Compression fracture of cervical spine, non-traumatic, with delayed healing, subsequent encounter [M48.52XG] 02/03/2025 9:00 AM EDT [facility] Neurology 9300 [place] [address] Devyn Roach MD 9500 [place] [address] Vertigo [R42] 02/10/2025 11:00 AM EDT Appointment Gastroenterology [address] [address] Jane Correia MD 0 [place] [address] Schedule in about 3 months to remove biliary stent documented as of this encounter Goals Goal Patient Goal Type Associated Problems Recent Progress Patient-Stated? Author Blood Pressure < 130/80 Blood Pressure 122/80( 025 5:30 PM EDT) No Vanessa Arora MD documented as of this encounter Visit Diagnoses Not on filedocumented in this encounter Care Teams Automation Manager Relationship Specialty Start Date End Date Rusty Delgado II, MD 112 [facility] 110 [place] [address] PCP - General Internal Medicine 05/28/24 Irena Johnson MD 3000 [facility] 1620 [facility] [place] [phone] Referring Gastroenterology 03/12/24 Vanessa Arora MD 9500 [place], [place] [phone] Primary Staff Physician Cardiology 05/02/24 Carina Ziegler RN [facility] 9500 [place] [address] Registered Nurse Transplant Center 09/17/24 documented as of this encounter
--- OUTSIDE RECORDS SUMMARY | 2024-11-19 02:23 | XMS_ITS | Encounter Summary ---
Author Organization [facility] Address [address] [place] [address] Care Team Providers Care Globe Changer Name Role Phone Irena Johnson MD Unavailable Vanessa Arora MD Unavailable [phone] Danny WONG MD, Rusty Gomez Primary Care Provider [phone] Carina Ziegler RN Unavailable Unavailable Source Comments In the event this information is protected by the Federal Confidentiality of Alcohol and Drug AbusePatient Records regulations: The Federal rules restrict any use of the information to criminally investigate or prosecute any alcohol or drug abuse patient.[facility] Reason for Referral * Outpatient Procedure (Routine) - Authorized Specialty Diagnoses / Procedures Referred By Contac t Referred To Contact [facility] Diagnoses Bile duct stricture (HCC) Procedures ERCP ERCP REMOVE FOREIGN BODY/STENT BILIARY/PANC DUCT Jane Correia MD [address] [place] [address] Phone: tel: fax: [facility] [address] [place] [address] Referral ID Status Reason Start Date Expiration Date Visits Requested Visits Authorized [id number] Authorized Auto-Generat ed Referral 11/13/2024 11/13/2025 1 1 Encounter Details Date Type Department Care Team (Late st Contact Info) Description 11/13/2024 Orders Only Gastroenterology [address] [address] Jane Correia MD [address] [place] [address] Bile duct stricture (HCC) (Primary Dx) Social History Tobacco Use Types Packs/Day Years Used Date Smoking Tobacco: Former Cigarettes 1 20 1 04/20/1970 - 02/18/1991 Smokeless Tobacco: Never Alcohol Use Standard Drinks/Week Comments Not Currently 0 (1 standard drink = 0.6 oz pur e alcohol) Recovering alcoholic [facility] Utilities Answer Date Recorded In the past 12 months has th e [employer], gas, oil, or water [employer] threatened to shut off services in your [...] is lower risk 7 04/25/2024 Data from: https://www.neighborhoodatlas.medicine.[facility]/. Last address used for calculation Eugene Villanueva [...] 4:00 PM EDT Office Visit Transplant Center [address] [place] [address] KAYLIE ARELLANO 11/21/2024 5:40 PM EDT Appointment MRI Q [address] [address] Compression fracture of cervical spine, non-traumatic, with delayed healing, subsequent encounter [M48.52XG] 11/21/2024 6:20 PM EDT Appointment MRI Q [address] [address] Compression fracture of cervical spine, non-traumatic, with delayed healing, subsequent encounter [M48.52XG] 11/21/2024 7:00 PM EDT Appointment MRI Q [address] [address] Compression fracture of cervical spine, non-traumatic, with delayed healing, subsequent encounter [M48.52XG] 02/03/2025 9:00 AM EDT [facility] Neurology 9300 [place] [address] Devyn Roach MD 9500 [place] [address] Vertigo [R42] 02/10/2025 11:00 AM EDT Appointment Gastroenterology [address] [address] Jane Correia MD 9500 [place] [address] Schedule in about 3 months to remove biliary stent Scheduled Orders Name Type Priority Associated Diagnoses Orde r Schedule ERCP Endoscopy Routine Bile duct stricture (HCC) 1 Occurrences starting 11/13/2024 until 11/13/2025 documented as of this encounter Goals Goal Patient Goal Type Associated Problems Recent Progress Patient-Stated? Author Blood Pressure < 130/80 Blood Pressure 122/80( 025 5:30 PM EDT) No Vanessa Arora MD documented as of this encounter Visit Diagnoses Diagnosis Bile duct stricture (HCC)- Primary Obstruction of bile duct documented in this encounter Care Teams Globe Changer Relationship Specialty Start Date End Date Rusty Delgado II, MD [address] [facility] 110 [place] [address] PCP - General Internal Medicine 05/28/24 Irena Johnson MD 3000 [address] Vill[address] [place] [id number] Referring Gastroenterology 03/12/24 Vanessa Arora MD [address] [place] [address] Primary Staff Physician Cardiology 05/02/24 Carina Ziegler, RN [facility] [address] [place] [address] Registered Nurse Transplant Center 09/17/24 documented as of this encounter
--- OUTSIDE RECORDS SUMMARY | 2024-11-19 02:23 | XMS_ITS | Encounter Summary ---
Author Organization [facility] Address [facility] [place] [address] Care Team Providers Care Tie Bucker Name Role Phone Irena Johnson MD Unavailable Vanessa Arora MD Unavailable [phone] Danny WONG MD, Rusty Gomez Primary Care Provider [phone] Carina Ziegler RN Unavailable Unavailable Source Comments In the event this information is protected by the Federal Confidentiality of Alcohol and Drug AbusePatient Records regulations: The Federal rules restrict any use of the information to criminally investigate or prosecute any alcohol or drug abuse patient.[facility] Encounter Details Date Type Department Care Team (Late st Contact Info) Description 11/06/2024 Get Medical Advice Transplant Center [address] [id number] Carina Ziegler, RN [address] [address] Appt 11-13 Social History Tobacco Use Types Packs/Day Years Used Date Smoking Tobacco: Former Cigarettes 1 20 1 04/20/1970 - 02/18/1991 Alcohol Use Standard Drinks/Week Comments Not Currently 0 (1 standard drink = 0.6 oz pur e alcohol) Recovering alcoholic [facility] Utilities Answer Date Recorded In [...] is lower risk 7 04/25/2024 Data from: https://www.neighborhoodatlas.medicine.[facility].edu/. Last address used for calculation Eugene [...] PM EDT Office Visit Transplant Center [address] [address] KAYLIE ARELLANO 11/21/2024 5:40 PM EDT Appointment MRI Q [address] [address] Compression fracture of cervical spine, non-traumatic, with delayed healing, subsequent encounter [M48.52XG] 11/21/2024 6:20 PM EDT Appointment MRI Q [address] [address] Compression fracture of cervical spine, non-traumatic, with delayed healing, subsequent encounter [M48.52XG] 11/21/2024 7:00 PM EDT Appointment MRI Q [address] [address] Compression fracture of cervical spine, non-traumatic, with delayed healing, subsequent encounter [M48.52XG] 02/03/2025 9:00 AM EDT [facility] Neurology 9300 [place] [address] Devyn Roach MD [address] [place] [address] Vertigo [R42] 02/10/2025 11:00 AM EDT Appointment Gastroenterology [address] [address] Jane Correia MD [address] [place] [address] Schedule in about 3 months to remove biliary stent documented as of this encounter Goals Goal Patient Goal Type Associated Problems Recent Progress Patient-Stated? Author Blood Pressure < 130/80 Blood Pressure 122/80( 025 5:30 PM EDT) No Vanessa Arora MD documented as of this encounter Visit Diagnoses Not on filedocumented in this encounter Care Teams Tie Bucker Relationship Specialty Start Date End Date Rusty Delgado II, MD 112 [facility] 110 [place] [address] PCP - General Internal Medicine 05/28/24 Irena Johnson MD 3000 [facility] 1620 [facility] [place] [phone] Referring Gastroenterology 03/12/24 Vanessa Arora MD 9500 [place] [address] Primary Staff Physician Cardiology 05/02/24 Carina Ziegler, RN [facility] 7140 [place] [address] Registered Nurse Transplant Center 09/17/24 documented as of this encounter
--- OUTSIDE RECORDS SUMMARY | 2024-11-19 02:23 | XMS_ITS | Encounter Summary ---
Author Organization [facility] Address [address] [place] [address] Care Team Providers Care Specialty Person Name Role Phone Irena Johnson MD Unavailable Vanessa Arora MD Unavailable [phone] Danny WONG MD, Rusty Gomez Primary Care Provider [phone] Carina Ziegler RN Unavailable Unavailable Source Comments In the event this information is protected by the Federal Confidentiality of Alcohol and Drug AbusePatient Records regulations: The Federal rules restrict any use of the information to criminally investigate or prosecute any alcohol or drug abuse patient.[facility] Encounter Details Date Type Department Care Team (Late st Contact Info) Description 04/23/2024 Patient Msg Transplant Center [address] [address] Virginia Hickman, RN colonoscopy Social History Tobacco Use Types Packs/Day Years Used Date Smoking Tobacco: Former Cigarettes 1 20 1 04/20/1970 - 02/18/1991 Alcohol Use Standard Drinks/Week Comments Yes 10 (1 standard drink = 0.6 oz pu re alcohol) 1-2 drinks nightly Area Deprivation Index Answer Date Zac rded National Score (1-100), lower number is lower ri sk 80 04/25/2024 State Score (1-10), lower number is lower risk 7 04/25/2024 Data from: https://www.neighborhoodatlas.medicine.[facility]/. Last address used for calculation Eugene Genao [...] PM EDT Office Visit Transplant Center [address] [address] KAYLIE ARELLANO 11/21/2024 5:40 PM EDT Appointment MRI Q 2049 [place] [id number] Compression fracture of cervical spine, non-traumatic, with delayed healing, subsequent encounter [M48.52XG] 11/21/2024 6:20 PM EDT Appointment MRI Q [address] [address] Compression fracture of cervical spine, non-traumatic, with delayed healing, subsequent encounter [M48.52XG] 11/21/2024 7:00 PM EDT Appointment MRI Q [address] [address] Compression fracture of cervical spine, non-traumatic, with delayed healing, subsequent encounter [M48.52XG] 02/03/2025 9:00 AM EDT [facility] Neurology 9300 [place] [address] Devyn Roach MD 9500 [place] [address] Vertigo [R42] 02/10/2025 11:00 AM EDT Appointment Gastroenterology [address] [address] Jane Correia MD 9500 [place] [address] Schedule in about 3 months to remove [...] documented as of this encounter Care Teams Specialty Person Relationship Specialty Start Date End Date Rusty Delgado II, MD [address] [address] PCP - General Internal Medicine 05/28/24 Irena Johnson MD 3000 Vlad Genao [facility] 1620 [facility] [place] [address] Referring Gastroenterology 03/12/24 Vanessa Arora MD 9501 [address] [place], [place] [id number] Primary Staff Physician Cardiology 05/02/24 Carina Ziegler, RN [facility] [address] [facility] [place] [address] Registered Nurse Transplant Center 09/17/24 documented as of this encounter
--- OUTSIDE RECORDS SUMMARY | 2024-11-19 02:23 | XMS_ITS | Encounter Summary ---
Author Organization [facility] Address [address] [place] [address] Care Team Providers Care Air Defense Artillery Senior Sergeant Name Role Phone Irena Johnson MD Unavailable Vanessa Arora MD Unavailable [phone] Danny WONG MD, Rusty Gomez Primary Care Provider [phone] Carina Ziegler RN Unavailable Unavailable Source Comments In the event this information is protected by the Federal Confidentiality of Alcohol and Drug AbusePatient Records regulations: The Federal rules restrict any use of the information to criminally investigate or prosecute any alcohol or drug abuse patient.[facility] Encounter Details Date Type Department Care Team (Late st Contact Info) Description 11/10/2024 Lab Requisition [facility] [address] [place], [place] [id number] [place] [address] [facility] JESUS [address] [place] [address] Social History Tobacco Use Types Packs/Day Years Used Date Smoking Tobacco: Former Cigarettes 1 20 1 04/20/1970 - 02/18/1991 Alcohol Use Standard Drinks/Week Comments Not Currently 0 (1 standard drink = 0.6 oz pur e alcohol) Recovering alcoholic [facility] Utilities Answer Date Recorded In the [...] is lower risk 7 04/25/2024 Data from: https://www.neighborhoodatlas.medicine.[facility].edu/. Last address used for calculation Eugene Villanueva [...] PM EDT Office Visit Transplant Center [address] [address] KAYLIE ARELLANO 11/21/2024 5:40 PM EDT Appointment MRI Q [address] [address] Compression fracture of cervical spine, non-traumatic, with delayed healing, subsequent encounter [M48.52XG] 11/21/2024 6:20 PM EDT Appointment MRI Q [address] [address] Compression fracture of cervical spine, non-traumatic, with delayed healing, subsequent encounter [M48.52XG] 11/21/2024 7:00 PM EDT Appointment MRI Q [address] [address] Compression fracture of cervical spine, non-traumatic, with delayed healing, subsequent encounter [M48.52XG] 02/03/2025 9:00 AM EDT [facility] Neurology [address] [place] [address] Devyn Roach MD [address] [place] [address] Vertigo [R42] 02/10/2025 11:00 AM EDT Appointment Gastroenterology [address] [address] Jane Correia MD [address]00 [place] [address] Schedule in about 3 months to remove biliary stent documented as of this encounter Goals Goal Patient Goal Type Associated Problems Recent Progress Patient-Stated? Author Blood Pressure < 130/80 Blood Pressure 122/80( 025 5:30 PM EDT) No Vanessa Arora MD documented as of this encounter Procedures Procedure Name Priority Date/Time Associated Diagnosis Comments MAGNESIUM BLD Routine 11/09/2024 6:05 AM EDT RENAL FUNCTION PANEL Routine 11/09/2024 6:05 AM EDT documented in this encounter Results * (ABNORMAL) RENAL FUNCTION PANEL (11/09/2024 6:05 AM EDT) Albumin 3.0(L) 3.9 - 4.9 g/dL 11/10/2024 9:11 AM EDT [facility] Calcium, Total 8.6 8.5 - 10.2 mg/dL 11/10/2024 9:11 AM EDT [facility] Phosphorus 4.2 2.7 - 4.8 mg/dL 11/10/2024 9:11 AM EDT [facility] Glucose 85 74 - 99 mg/dL 11/10/2024 9:11 AM EDT [facility] Comment: The [place] Diabetes Association (ADA) provides guidance for cutoff [...] Standards of Medical Care in Diabetes 2016, [place] Diabetes Association. Diabetes Care. 2016.39(Suppl 1). BUN 18 9 - 24 mg/dL 11/10/2024 9:11 AM EDT [facility] Creatinine 1.46(H) 0.73 - 1.22 mg/dL 11/10/2024 9:11 AM EDT [facility] Sodium 134(L) 136 - 144 mmol/L 11/10/2024 9:11 AM EDT [facility] Potassium 5.0 3.7 - 5.1 mmol/L 11/10/2024 9:11 AM EDT [facility] Chloride 99 98 - 107 mmol/L 11/10[facility]2024 [facility] CO2 25 22 - 30 mmol/L 11/10/2024 9:11 AM EDT [facility] Anion Gap 10 8 - 15 mmol/L 11/10/2024 9:11 AM EDT [facility] Estimated Glomerular Filtration Rate 51(L) >=60 mL/min/1. 73m 11/10/2024 9:11 [facility] Comment:Estimated Glomerular Filtration Rate (eGFR) is [...] actual GFR. Blood BLOOD SPECIMEN / Unknown 11/09/2024 6:05 AM EDT 11/10/2024 8:22 AM EDT us Chelsea Trinidad MD LABORATORY Final Result [facility] [address] [place] [address], * MAGNESIUM (11/09/2024 6:05 AM EDT) Magnesium 2.1 1.7 - 2.3 mg/dL 11/10/2024 9:11 [address] [facility] Blood BLOOD SPECIMEN / Unknown 11/09/2024 6:05 AM EDT 11/10/2024 8:22 AM EDT us Chelsea Trinidad MD LABORATORY Final Result [facility] [address] [place] [address], documented in this encounter Visit Diagnoses Not on filedocumented in this encounter Care Teams [employer] Senior Sergeant Relationship Specialty Start Date End Date Rusty Delgado II, MD 112 [facility] 110 [place] [address] PCP - General Internal Medicine 05/28/24 Irena Johnson MD 3000 [facility] 1620 [place] [address] Referring Gastroenterology 03/12/24 Vanessa Arora MD [address] [place] [address] Primary Staff Physician Cardiology 05/02/24 Carina iZegler, RN [facility] [address] [facility] [address] Registered Nurse Transplant Center 09/17/24 documented as of this encounter
--- OUTSIDE RECORDS SUMMARY | 2024-11-19 02:23 | XMS_ITS | Encounter Summary ---
Author Organization [facility] Address [address] [place] [address] Care Team Providers Care Emergency Response Technician Name Role Phone Irena Johnson MD Unavailable Vanessa Arora MD Unavailable [phone] Danny WONG MD, Rusty Gomez Primary Care Provider [phone] Carina Ziegler RN Unavailable Unavailable Source Comments In the event this information is protected by the Federal Confidentiality of Alcohol and Drug AbusePatient Records regulations: The Federal rules restrict any use of the information to criminally investigate or prosecute any alcohol or drug abuse patient.[facility] Reason for Referral * Medication Prior Authorization - Authorized Specialty Diagnoses / Procedures Referred By Contac t Referred To Contact Diagnoses Compression fracture of cervical spine, non-traumatic, with delayed healing, subsequent encounter Generalized abdominal pain Shelli Boo APRN.DIRECTOR CLOUD TRANSFORMATION [address] [place] [address] Phone: tel: fax: Referral ID Status Reason Start Date Expiration Date V isits Requested Visits Authorized [id number] Authorized 04/17/2024 04/16/2025 1 1 * MRI/CT (Routine) - Authorized Specialty Diagnoses / Procedures Referred By Contac t Referred To Contact MR IMAGING Diagnoses Compression fracture of cervical spine, non-traumatic, with delayed healing, subsequent encounter Procedures MRI LUMBAR SPINE WO/W IVCON MRI SPINAL CANAL LUMBAR W/O & W/CONTR MATRL Shelli Boo APRN.DIRECTOR CLOUD TRANSFORMATION [address] [place] [address] Phone: tel: fax: MR IMAGING [place] [address] Referral ID Status Reason Start Date Expiration Date Visits Requested Visits Authorized [id number] Authorized Auto-Generat ed Referral 11/20/2024 12/12/2025 1 1 * MRI/CT (Urgent) - Authorized Specialty Diagnoses / Procedures Referred By Contac t Referred To Contact MR IMAGING Diagnoses Compression fracture of cervical spine, non-traumatic, with delayed healing, subsequent encounter Procedures MRI THORACIC SPINE WO/W IVCON MRI SPINAL CANAL THORACIC W/O & W/CONTR ROSAMARIAL Shelli Boo APRN.DIRECTOR CLOUD TRANSFORMATION [address] [place] [address] Phone: tel: fax: MR IMAGING [place] [address] Referral ID Status Reason Start Date Expiration Date Visits Requested Visits Authorized [id number] Authorized Auto-Generat ed Referral 11/20/2024 12/12/2025 1 1 * MRI/CT (Urgent) - Authorized Specialty Diagnoses / Procedures Referred By Contac t Referred To Contact MR IMAGING Diagnoses Compression fracture of cervical spine, non-traumatic, with delayed healing, subsequent encounter Procedures MRI CERVICAL SPINE WO/W IVCON MRI SPINAL CANAL CERVICAL W/O & W/CONTR MATRL Shelli Boo APRN.DIRECTOR CLOUD TRANSFORMATION [address] [place] [id number] Phone: tel: fax: MR [place]AGING [place] [address] Referral ID Status Reason Start Date Expiration Date Visits Requested Visits Authorized [id number] Authorized Auto-Generat ed Referral 11/20/2024 12/12/2025 1 1 Encounter Details Date Type Department Care Team (Late st Contact Info) Description 11/12/2024 Refill Transplant Center [address] [place] [address] Carina Ziegler RN [place] [address] [place] [id number] Social History Tobacco Use Types Packs/Day Years Used Date Smoking Tobacco: Former Cigarettes 1 20 1 04/20/1970 - 02/18/1991 Alcohol Use Standard Drinks/Week Comments Not Currently 0 (1 standard drink = 0.6 oz pur e alcohol) Recovering alcoholic [facility] Utilities Answer Date Recorded In the [...] is lower risk 7 04/25/2024 Data from: https://www.neighborhoodatlas.[facility]/. 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 No IV access, insert saline lock priorto the beginning of sedation, infusion, injection of imaging exam. Discontinue saline lock post exam. If Pt. has a central line or IVAD, may access for administration according to line specific nursing protocol. Once exam is complete flush line and de-access according to line specific nursing protocol in the MR contrast administration guidelines link. buprenorphine (BUTRANS) 10 mcg/hour transdermal patch 4 patch 0 Sig: Apply 1 patch as directed one time a week for 30 days. On a Monday linaclotide (LINZESS) 145 mcg capsule 60 capsule 3 Sig: Take 1 capsule by mouth two times a day. 9am, 9pm-Take capsule on an empty stomach at least 30minutes before a meal at the same time each day. Capsule should be swallowed whole. DO NOT chew or crush simethicone, chewable (MYLICON) 80 mg chewable tablet 120 tablet 2 Sig: Take 1 tablet by mouth four times a day as needed. 9am,12n, 6pm, 9pm midodrine (PROAMATINE) 10 mg tablet 90 tablet 2 Sig: Take 1 tablet by mouth three times a day. 9am, 12n, 6pm tamsulosin (FLOMAX) 0.4 mg 30 capsule 2 Sig: Take 1 capsule by mouth daily at bedtime. melatonin 3 mg capsules 30 capsule 2 Sig: Take 1 capsule by mouth daily at bedtime. oxyCODONE IR (ROXICODONE) 5 mg immediate release tablet 42 tablet 0 Sig: Take 1 tablet by mouth two times a day for 21 days. FOR PAIN. acetaminophen (TYLENOL) 500 mg tablet 60 tablet 0 Sig: Take 1 tablet by mouth every 6 hours as needed for pain. aspirin 81 mg chewable tablet 30 tablet 11 Sig: Take 1 tablet by mouth once daily. famotidine (PEPCID) 20 mg tablet 60 tablet 3 Sig: Take 1 tablet by mouth two times a day. magnesium oxide (MAG-OX) 400 mg (241.3 mg magnesium) tablet 180 tablet 5 Sig: Take 2 tablets by mouth three times a day. 9am, 3pm, 9pm methocarbamol (ROBAXIN) 750 mg tablet 90 tablet 2 Sig: Take 1 tablet by mouth three times a day. mirtazapine (REMERON) 7.5 mg tablet 30 tablet 2 Sig: Take 1 tablet by mouth daily at bedtime. multivitamin tablet 30 tablet 11 Sig: Take 1 tablet by mouth once daily. pantoprazole DR (PROTONIX) 40 mg tablet 30 tablet 3 Sig: Take 1 tablet by mouth once daily. sulfamethoxazole-trimethoprim (BACTRIM DS) 800-160 mg per tablet 15 tablet 10 Sig: Take 1 tablet by mouth every Monday, Monday, and Monday. tacrolimus IR (PROGRAF) 5 mg capsule 300 capsule 11 Sig: Take 1 capsule by mouth two times a day. traZODone (DESYREL) 50 mg tablet 30 tablet 2 Sig: Take 1 tablet by mouth daily at bedtime. ursodiol (ACTIGALL) 300 mg capsule 90 capsule 5 Sig: Take 1 capsule by mouth three times a day. acyclovir (ZOVIRAX) 400 mg tablet 60 tablet 0 Sig: Take 1 tablet by mouth two times a day. Please approve the above prescription(s) to electronically send to pharmacy. Carina Ziegler RN documented in this encounter Plan of Treatment Upcoming Encounters Date Type Department Care Team (Late st Contact Info) Description 11/21/2024 4:00 PM EDT Office Visit Transplant Center [address] [address] KAYLIE ARELLANO 11/21/2024 5:40 PM EDT Appointment MRI Q [address] [address] Compression fracture of cervical spine, non-traumatic, with delayed healing, subsequent encounter [M48.52XG] 11/21/2024 6:20 PM EDT Appointment MRI Q [address] [address] Compression fracture of cervical spine, non-traumatic, with delayed healing, subsequent encounter [M48.52XG] 11/21/2024 7:00 PM EDT Appointment MRI Q [address] [address] Compression fracture of cervical spine, non-traumatic, with delayed healing, subsequent encounter [M48.52XG] 02/03/2025 9:00 AM EDT [facility] Neurology [address] [place] [address] Devyn Roach MD [address] [facility] [place] [address] Vertigo [R42] 02/10/2025 11:00 AM EDT Appointment Gastroenterology [address] [address] Jane Correia MD [address] [place] [address] Schedule in about 3 months to remove biliary stent Scheduled Orders Name Type Priority Associated Diagnoses Orde r Schedule MRI CERVICAL SPINE WO/W IVCON Radiology ADRIANNE Compression fracture of cervical spine, non-traumatic, with delayed healing, subsequent encounter Expected: 11/20/2024, Expires: 12/12/2025 MRI THORACIC SPINE WO/W IVCON Radiology ADRIANNE Compression fracture of cervical spine, non-traumatic, with delayed healing, subsequent encounter Expected: 11/20/2024, Expires: 12/12/2025 MRI LUMBAR SPINE WO/W IVCON Radiology Routine Compression fracture of cervical spine, non-traumatic, with delayed healing, subsequent encounter Expected: 11/20/2024, Expires: 12/12/2025 documented as of this encounter Goals Goal Patient Goal Type Associated Problems Recent Progress Patient-Stated? Author Blood Pressure < 130/80 Blood Pressure 122/80( 025 5:30 PM EDT) No Vanessa Arora MD documented as of this encounter Visit Diagnoses Diagnosis Compression fracture of cervical spine, non-traumatic, with delayed healing, subsequent encounter- Primary Generalized abdominal pain Abdominal pain, generalized documented in this encounter Care Teams Emergency Response Technician Relationship Specialty Start Date End Date Rusty Delgado II, MD 112 [facility] [address] [place] [address] PCP - General Internal Medicine 05/28/24 Irena Johnson MD [address] [place] [address] [facility] [place] [phone] Referring Gastroenterology 03/12/24 Vanessa Arora MD [address] [place] [address] Primary Staff Physician Cardiology 05/02/24 Carina Ziegler, RN [facility] [address] [place] [address] Registered Nurse Transplant Center 09/17/24 documented as of this encounter
--- OUTSIDE RECORDS SUMMARY | 2024-11-19 02:23 | XMS_ITS | Patient Health Record ---
Author Organization [facility]elio mcginn[facility] Billing Info Address [address] [place] [address] [place] [address] Care Team Providers Care Distillery Miller Helper Name Role Phone SHANTEL BRITTANY Primary Care Provider Reason For Referral No Information Medications Medication SIG (Take, Route, Frequency, Duration) Notes Start Date End Date Status Aspirin 81 MG 1 tablet Orally Once a day for 30 day(s) Active Calcium Active Multivitamin - 1 tablet Orally Once a day for 30 day(s) Active Lisinopril 20 MG TAKE 1 TABLET BY ALEXANDRA TH EVERY DAY for 90 Active Omeprazole 40 MG 1 capsule Orally Onc e a day for 30 day(s) Active Metoprolol Tartrate 25 MG 1 tablet with food Orally Twice a day for 90 Active Social History Tobacco Use: Social History Observation Description Date Details (start date - stop date) Former Smoker NA - NA Sex Assigned At : Social History Observation Description Sex Assigned At Male Tobacco Status: Question Answer Notes Patient is a former smoker Section Notes: Alcohol - vodka and gin 3-4 drinks per day, every day of the weeks Smoking - Patient quit 29 years ago. Alcohol - vodka and gin 3-4 drinks per day, every day of the weeks Smoking - Patient quit 29 years ago. Alcohol - vodka and gin 3-4 drinks per day, every day of the weeks Smoking - Patient quit 29 years ago. Alcohol - vodka and gin 3-4 drinks per day, every day of the weeks Smoking - Patient quit 29 years ago. Problems Problem Type SNOMED Code ICD Code Onset Dates Problem Status W/U Status Risk Notes Problem 59400099 Essential hypertension (I10) Active confirmed Problem Vertigo (R42) Active confirmed Problem 581437923 Decreased hearing of left ear (H91.92) Active confirmed Problem Supraventricular premature beats (97948497) PAC (premature atrial contraction) (I49.1) Active confirmed Problem 054592861 Decreased platelet count (D69.6) Active confirmed Problem 355122137 Insomnia, unspecified type (G47.00) Active confirmed Plan Of Treatment Future Test Test Name Order Date CBC With Differential/Platelet ([id number]) 04/02/2020 Hepatic Function Panel (7) ([id number]) 1 06/03/2019 Insurance Providers Payer Name Payer Address Payer Phone Subscriber Number Group Number Insured Name Patient Relationship to Insured Coverage Start Date Coverage End Date [employer] PPO MEDICARE PLAN [address] [place], [place] [id number] [phone] [id number] Charles Stewart Self - patient is the insured Medical (General) History Medical History History ICD Code ----CARDIOLOGY---- HTN 48 hr HOLTER 11/09/18 rhythm is sinus rhythm. Rhythm presents with an arrhythmic pattern that degrees and ectopy. Average heart rate 85 bpm. Minimum heart rate 39 bpm. At maximum heart rate 120 bpm. No significant pauses or AV block noted. Normal PVR, QRS, and QT intervals at varying heart rates. Maximum R-R interval is 1.68 sec. Frequent isolated and couplets APDs noted. Isolated nonsustained episodes of SVT seen. Atrial arrhythmia comprised 40.7% of recorded beats. Isolated VPCs noted. No complex ventricular arrhythmia. No diary submitted -----LABS---- LIPID 08/01/18 LDL 97 TRI 90 CMP 08/01/18 CR 0.90 Irregular heart rhythm I49.9 Essential hypertension I10 Premature atrial contraction I49.1 Vertigo R42 PAC (premature atrial contraction) I49.1 Surgical History Surgery Date(Month/Year) Cholecystectomy Tonsillectomy hernia repair BASAL CARCINOMA REMOVED LEFT SIDE OF HEA D 2017 Hospitalization History Reason Date(Month/Year) [facility]ERNIA SURGERY
--- OUTSIDE RECORDS SUMMARY | 2024-11-19 02:23 | XMS_ITS | Encounter Summary ---
Author Organization [facility] Address [address] [place] [address] Care Team Providers Care Workflow Developer Name Role Phone Irena Johnson MD Unavailable Vanessa Arora MD Unavailable [phone] Danny WONG MD, Rusty Gomez Primary Care Provider [phone] Carina Ziegler RN Unavailable Unavailable Source Comments In the event this information is protected by the Federal Confidentiality of Alcohol and Drug AbusePatient Records regulations: The Federal rules restrict any use of the information to criminally investigate or prosecute any alcohol or drug abuse patient.[facility] Reason for Visit * Reason Comments CoPat Stop Encounter Details Date Type Department Care Team (Late st Contact Info) Description 11/15/2024 Patient Update Infectious Disease [address] [place] [address] Dana Nicholson MD [address] [place] [address] CoPat Stop Social History Tobacco Use Types Packs/Day Years Used Date Smoking Tobacco: Former Cigarettes 1 20 1 04/20/1970 - 02/18/1991 Smokeless Tobacco: Never Alcohol Use Standard Drinks/Week Comments Not Currently 0 (1 standard drink = 0.6 oz pur e alcohol) Recovering alcoholic [facility] Utilities Answer Date Recorded In the [...] is lower risk 7 04/25/2024 Data from: https://www.neighborhoodatlas.medicine.[facility].edu/. Last address used for calculation Eugene [...] documented in this encounter Progress Notes * Mercedez Tobar RPh - 11/15/2024 2:28 PM EDT [facility] OPAT Documentation Note Per orders of Dr. Nicholson honor daptomycin stop date of 11/12. Okay to remove PICC. Per chart review,patient completed daptomycin as planned on 11/12 at [facility], and was discharged from the facility today. Total Time Spent on this Encounter (in minutes): < 5 Mercedez Tobar RPh 11/15/2024 2:28 PM documented in this encounter Plan of Treatment Upcoming Encounters Date Type Department Care Team (Late st Contact Info) Description 11/21/2024 4:00 PM EDT Office Visit Transplant Center [address] [address] KAYLIE ARELLANO 11/21/2024 5:40 PM EDT Appointment MRI Q [address] [address] Compression fracture of cervical spine, non-traumatic, with delayed healing, subsequent encounter [M48.52XG] 11/21/2024 6:20 PM EDT Appointment MRI Q [address] [address] Compression fracture of cervical spine, non-traumatic, with delayed healing, subsequent encounter [M48.52XG] 11/21/2024 7:00 PM EDT Appointment MRI Q [address] [address] Compression fracture of cervical spine, non-traumatic, with delayed healing, subsequent encounter [M48.52XG] 02/03/2025 9:00 AM EDT [facility] Neurology [address] [place] [address] Devyn Roach MD [address] [place] [address] Vertigo [R42] 02/10/2025 11:00 AM EDT Appointment Gastroenterology [address] [address] Jane Correia MD [address] [place] [address] Schedule in about 3 months to remove biliary stent documented as of this encounter Goals Goal Patient Goal Type Associated Problems Recent Progress Patient-Stated? Author Blood Pressure < 130/80 Blood Pressure 122/80( 025 5:30 PM EDT) No Vanessa Arora MD documented as of this encounter Visit Diagnoses Not on filedocumented in this encounter Care Teams Workflow Developer Relationship Specialty Start Date End Date Rusty Delgado II, MD 112 [facility] [address] [place] [address] PCP - General Internal Medicine 05/28/24 Irena Johnson MD 3000 [facility] [address]20 [facility] [place] [phone] Referring Gastroenterology 03/12/24 Vanessa Arora MD [address] [place] [address] Primary Staff Physician Cardiology 05/02/24 Carina Ziegler, RN [facility] [address] [place] [address] Registered Nurse Transplant Center 09/17/24 documented as of this encounter
--- OUTSIDE RECORDS SUMMARY | 2024-11-19 02:23 | XMS_ITS | Encounter Summary ---
Author Organization [facility] Address [address] [place] [address] Care Team Providers Care Wrist Liner Name Role Phone Irena Johnson MD Unavailable Vanessa Arora MD Unavailable [phone] Danny WONG MD, Rusty Gomez Primary Care Provider [phone] Carina Ziegler RN Unavailable Unavailable Source Comments In the event this information is protected by the Federal Confidentiality of Alcohol and Drug AbusePatient Records regulations: The Federal rules restrict any use of the information to criminally investigate or prosecute any alcohol or drug abuse patient.[facility] Encounter Details Date Type Department Care Team (Late st Contact Info) Description 11/13/2024 Orders Only Gastroenterology [address] [address] Jane Correia MD [address] [place] [address] Social History Tobacco Use Types Packs/Day Years Used Date Smoking Tobacco: Former Cigarettes 1 20 1 04/20/1970 - 02/18/1991 Smokeless Tobacco: Never Alcohol Use Standard Drinks/Week Comments Not Currently 0 (1 standard drink = 0.6 oz pur e alcohol) Recovering alcoholic [facility] Utilities Answer Date Recorded In [...] risk 7 04/25/2024 Data from: https://www.neighborhoodatlas.medicine.[facility].edu/. Last address used for calculation Eugene Villanueva [...] PM EDT Office Visit Transplant Center [address] [address] KAYLIE ARELLANO 11/21/2024 5:40 PM EDT Appointment MRI Q [address] [address] Compression fracture of cervical spine, non-traumatic, with delayed healing, subsequent encounter [M48.52XG] 11/21/2024 6:20 PM EDT Appointment MRI Q [address] [address] Compression fracture of cervical spine, non-traumatic, with delayed healing, subsequent encounter [M48.52XG] 11/21/2024 7:00 PM EDT Appointment MRI Q [address] [address] Compression fracture of cervical spine, non-traumatic, with delayed healing, subsequent encounter [M48.52XG] 02/03/2025 9:00 AM EDT [facility] Neurology [address] [place] [address] Devyn Roach MD [address] [place], [place] [address] Vertigo [R42] 02/10/2025 11:00 AM EDT Appointment Gastroenterology [address] [address] Jane Correia MD [address] [place] [address] Schedule in about 3 months to remove biliary stent documented as of this encounter Goals Goal Patient Goal Type Associated Problems Recent Progress Patient-Stated? Author Blood Pressure < 130/80 Blood Pressure 122/80( 025 5:30 PM EDT) No Vanessa Arora MD documented as of this encounter Visit Diagnoses Not on filedocumented in this encounter Care Teams Wrist Liner Relationship Specialty Start Date End Date Rusty Delgado II, MD 112 [facility] 110 [place] [address] PCP - General Internal Medicine 05/28/24 Irena Johnson MD 3000 [facility] 1620 [facility] [place] [phone] Referring Gastroenterology 03/12/24 Vanessa Arora MD [address] [place] [address] Primary Staff Physician Cardiology 05/02/24 Carina Ziegler, RN [facility] [address] [place] [address] Registered Nurse Transplant Center 09/17/24 documented as of this encounter
--- OUTSIDE RECORDS SUMMARY | 2024-11-19 02:23 | XMS_ITS | Encounter Summary ---
Author Organization [facility] Address [address] [place] [address] Care Team Providers Care Asset Availability Leader Name Role Phone Irena Johnson MD Unavailable Vanessa Arora MD Unavailable [phone] Danny WONG MD, Rusty Gomez Primary Care Provider [phone] Carina Ziegler RN Unavailable Unavailable Source Comments In the event this information is protected by the Federal Confidentiality of Alcohol and Drug AbusePatient Records regulations: The Federal rules restrict any use of the information to criminally investigate or prosecute any alcohol or drug abuse patient.[facility] Encounter Details Date Type Department Care Team (Latest Contact Info) Description 11/12/2024 Travel Social History Tobacco Use Types Packs/Day Years Used Date Smoking Tobacco: Former Cigarettes 1 20 1 04/20/1970 - 02/18/1991 Alcohol Use Standard Drinks/Week Comments Not Currently 0 (1 standard drink = 0.6 oz pur e alcohol) Recovering alcoholic [facility] Utilities Answer Date Recorded In the past 12 months has e electric, gas, oil, or water company [...] is lower risk 7 04/25/2024 Data from: https://www.neighborhoodatlas.medicine.[facility].edu/. Last address used for calculation [...] PM EDT Office Visit Transplant Center [address] [address] KAYLIE ARELLANO 11/21/2024 5:40 PM EDT Appointment MRI Q [address] [address] Compression fracture of cervical spine, non-traumatic, with delayed healing, subsequent encounter [M48.52XG] 11/21/2024 6:20 PM EDT Appointment MRI Q [address] [address] Compression fracture of cervical spine, non-traumatic, with delayed healing, subsequent encounter [M48.52XG] 11/21/2024 7:00 PM EDT Appointment MRI Q [address] [address] Compression fracture of cervical spine, non-traumatic, with delayed healing, subsequent encounter [M48.52XG] 02/03/2025 9:00 AM EDT [facility] Neurology [address] [place] [address] Devyn Roach MD [address] [place] [address] Vertigo [R42] 02/10/2025 11:00 AM EDT Appointment Gastroenterology [address] [address] Jane Correia MD [address] [place] [address] Schedule in about 3 months to remove biliary stent documented as of this encounter Goals Goal Patient Goal Type Associated Problems Recent Progress Patient-Stated? Author Blood Pressure < 130/80 Blood Pressure 122/80( 025 5:30 PM EDT) No Vanessa Arora MD documented as of this encounter Visit Diagnoses Not on filedocumented in this encounter Care Teams Asset Availability Leader Relationship Specialty Start Date End Date Rusty Delgado II, MD 112 [facility] 110 [place] [address] PCP - General Internal Medicine 05/28/24 Irena Johnson MD 3000 [facility] [address] [place] [address] Referring Gastroenterology 03/12/24 Vanessa Arora MD [address] [place] [address] Primary Staff Physician Cardiology 05/02/24 Carina Ziegler, RN [facility] [address] [place] [address] Registered Nurse Transplant Center 09/17/24 documented as of this encounter
--- OUTSIDE RECORDS SUMMARY | 2024-11-19 02:23 | XMS_ITS | Encounter Summary ---
Author Organization [facility] Address [address] [place] [address] Care Team Providers Care Java Development Team Lead Name Role Phone Tanisha Vazquez MD Primary Care Provider [phone] Irena Johnson MD Unavailable Vanessa Arora MD Unavailable [phone] Danny WONG MD, Rusty Gomez Primary Care Provider [phone] Carina Ziegler RN Unavailable Unavailable Source Comments In the event this information is protected by the Federal Confidentiality of Alcohol and Drug AbusePatient Records regulations: The Federal rules restrict any use of the information to criminally investigate or prosecute any alcohol or drug abuse patient.[facility] Encounter Details Date Type Department Care Team (Late st Contact Info) Description 10/10/2016 Patient Msg Family Medicine [address] [place] [address] [place] [address] [place] [address] RE: Appointment Cancellation Request Social History Tobacco [...] PM EDT Office Visit Transplant Center [address] [address] KAYLIE ARELLANO 11/21/2024 5:40 PM EDT Appointment MRI Q [address] [address] Compression fracture of cervical spine, non-traumatic, with delayed healing, subsequent encounter [M48.52XG] 11/21/2024 6:20 PM EDT Appointment MRI Q [address] [address] Compression fracture of cervical spine, non-traumatic, with delayed healing, subsequent encounter [M48.52XG] 11/21/2024 7:00 PM EDT Appointment MRI Q [address] [address] Compression fracture of cervical spine, non-traumatic, with delayed healing, subsequent encounter [M48.52XG] 02/03/2025 9:00 AM EDT [facility] Neurology 9300 [place] [address] Devyn Roach MD 9500 [place] [address] Vertigo [R42] 02/10/2025 11:00 AM EDT Appointment Gastroenterology [address] [address] Jane Correia MD 9500 [place] [address] Schedule in about 3 months to remove [...] documented as of this encounter Care Teams Java Development Team Lead Relationship Specialty [place] [address] [place] [address] PCP - General Family Medicine 11/26/12 04/04/17 Rusty Delgado II, MD 112 [facility] 110 [place] [address] PCP - General Internal Medicine 05/28/24 Irena Johnson MD 3000 [facility] 1620 [place] [id number] Referring Gastroenterology 03/12/24 Vanessa Arora MD [address] [place] [address] Primary Staff Physician Cardiology 05/02/24 Carina Ziegler, RN [facility] [address] [place] [address] Registered Nurse Transplant Center 09/17/24 documented as of this encounter
--- OUTSIDE RECORDS SUMMARY | 2024-11-19 02:23 | XMS_ITS | Encounter Summary ---
Author Organization [facility] Address [address] [place] [address] Care Team Providers Care Bottom Turning Lathe Tender Name Role Phone Irena Johnson MD Unavailable Vanessa Arora MD Unavailable [phone] Danny WONG MD, Rusty Gomez Primary Care Provider [phone] Carina Ziegler RN Unavailable Unavailable Source Comments In the event this information is protected by the Federal Confidentiality of Alcohol and Drug AbusePatient Records regulations: The Federal rules restrict any use of the information to criminally investigate or prosecute any alcohol or drug abuse patient.[facility] Reason for Visit * Reason Comments Lead Dental Assistant - Other Encounter Details Date Type Department Care Team (Late st Contact Info) Description 11/11/2024 Telephone Gastroenterology [address] [place] [address] Oksana Fatima, LEO Lead Dental Assistant - Other Social History Tobacco Use Types Packs/Day Years Used Date Smoking Tobacco: Former Cigarettes 1 20 1 04/20/1970 - 02/18/1991 Alcohol Use Standard Drinks/Week Comments Not Currently 0 (1 standard drink = 0.6 oz pur e alcohol) Recovering alcoholic [facility] Utilities Answer Date Recorded In the [...] is lower risk 7 04/25/2024 Data from: https://www.neighborhoodatlas.medicine.[facility].edu/. Last address used for calculation [...] encounter Miscellaneous Notes * Telephone Encounter - Ceci Valencia RN - 11/12/2024 1:19 PM EDT RN childcare aide placed return call to [facility] per request. Spoke with Lisa who expressed had spoke with transplant team also. Advised that patient can take medications in am with small sipsof water, advised to take any cardiac or seizure medication. Patient not on any medications for diabetes (insulin). If able to tolerate transplant medications on empty stomach, if not will hold until after procedure. Heparin being held currently. Denies any oral blood thinners. Lisa calling to clarify alright to take medication with small sips a water and confirmed. No additional questions andcall was ended. MELISSA Webster, RN Specialty Nurse Lead Dental Assistant Digestive Disease documented in this encounter Plan of Treatment Upcoming Encounters Date Type Department Care Team (Late st Contact Info) Description 11/21/2024 4:00 PM EDT Office Visit Transplant Center [address] [place] [address] KAYLIE ARELLANO 11/21/2024 5:40 PM EDT Appointment MRI Q [address] [address] Compression fracture of cervical spine, non-traumatic, with delayed healing, subsequent encounter [M48.52XG] 11/21/2024 6:20 PM EDT Appointment MRI Q [address] [address] Compression fracture of cervical spine, non-traumatic, with delayed healing, subsequent encounter [M48.52XG] 11/21/2024 7:00 PM EDT Appointment MRI Q [address] [address] Compression fracture of cervical spine, non-traumatic, with delayed healing, subsequent encounter [M48.52XG] 02/03/2025 9:00 AM EDT [facility] Neurology 9300 [place] [address] Devyn Roach MD 9500 [place] [address] Vertigo [R42] 02/10/2025 11:00 AM EDT Appointment Gastroenterology [address] [address] Jane Correia MD 9500 [place] [address] Schedule in about 3 months to remove biliary stent documented as of this encounter Goals Goal Patient Goal Type Associated Problems Recent Progress Patient-Stated? Author Blood Pressure < 130/80 Blood Pressure 122/80( 025 5:30 PM EDT) No Vanessa Arora MD documented as of this encounter Visit Diagnoses Not on filedocumented in this encounter Care Teams Bottom Turning Lathe Tender Relationship Specialty Start Date End Date Rusty Delgado II, MD 112 [facility] 110 [place] [address] PCP - General Internal Medicine 05/28/24 Irena Johnson MD 3000 [facility] 1620 [place] [address] Referring Gastroenterology 03/12/24 Vanesas Arora MD 3032 [place] [address] Primary Staff Physician Cardiology 05/02/24 Carina Ziegler RN [facility] 8565 [place] [address] Registered Nurse Transplant Center 09/17/24 documented as of this encounter
--- OUTSIDE RECORDS SUMMARY | 2024-11-19 02:23 | XMS_ITS | Encounter Summary ---
Author Organization [facility] Address [address] [place] [address] Care Team Providers Care Concession Cashier Name Role Phone Irena Johnson MD Unavailable Vanessa Arora MD Unavailable [phone] Danny WONG MD, Rusty Gomez Primary Care Provider [phone] Carina Ziegler RN Unavailable Unavailable Source Comments In the event this information is protected by the Federal Confidentiality of Alcohol and Drug AbusePatient Records regulations: The Federal rules restrict any use of the information to criminally investigate or prosecute any alcohol or drug abuse patient.[facility] Encounter Details Date Type Department Care Team (Late st Contact Info) Description 11/13/2024 Telephone [facility] Home Delivery - Compliance 47[address] [place] [address] Ceci Felix [facility] Social History Tobacco Use Types Packs/Day Years Used Date Smoking Tobacco: Former Cigarettes 1 20 1 04/20/1970 - 02/18/1991 Smokeless Tobacco: Never Alcohol Use Standard Drinks/Week Comments Not Currently 0 (1 standard drink = 0.6 oz pur e alcohol) Recovering alcoholic [facility] Utilities Answer Date Recorded In [...] risk 7 04/25/2024 Data from: https://www.neighborhoodatlas.medicine.[facility].edu/. Last address used for calculation Eugene Villanueva [...] PM EDT Office Visit Transplant Center [address] [address] KAYLIE ARELLANO 11/21/2024 5:40 PM EDT Appointment MRI Q [address] [address] Compression fracture of cervical spine, non-traumatic, with delayed healing, subsequent encounter [M48.52XG] 11/21/2024 6:20 PM EDT Appointment MRI Q [address] [address] Compression fracture of cervical spine, non-traumatic, with delayed healing, subsequent encounter [M48.52XG] 11/21/2024 7:00 PM EDT Appointment MRI Q [address] [address] Compression fracture of cervical spine, non-traumatic, with delayed healing, subsequent encounter [M48.52XG] 02/03/2025 9:00 AM EDT [facility] Neurology 9300 [place] [address] Devyn Roach MD 9500 [place] [address] Vertigo [R42] 02/10/2025 11:00 AM EDT Appointment Gastroenterology [address] [address] Jane Correia MD [address] [place] [address] Schedule in about 3 months to remove biliary stent documented as of this encounter Goals Goal Patient Goal Type Associated Problems Recent Progress Patient-Stated? Author Blood Pressure < 130/80 Blood Pressure 122/80( 025 5:30 PM EDT) No Vanessa Arora MD documented as of this encounter Visit Diagnoses Not on filedocumented in this encounter Care Teams Concession Cashier Relationship Specialty Start Date End Date Rusty Delgado II, MD 112 [facility] 110 [place] [address] PCP - General Internal Medicine 05/28/24 Irena Johnson MD 3000 [facility] 1620 [facility] [place] [address] Referring Gastroenterology 03/12/24 Vanessa Arora MD [address] [place] [address] Primary Staff Physician Cardiology 05/02/24 Carina Ziegler, LEO [facility] [address] [place] [address] Registered Nurse Transplant Center 09/17/24 documented as of this encounter"
--- OUTSIDE RECORDS SUMMARY | 2024-11-19 02:23 | XMS_ITS | Encounter Summary ---
Author Organization [facility] Address [address] [place] [address] Care Team Providers Care Chief Radiology Name Role Phone Irena Johnson MD Unavailable Vanessa Arora MD Unavailable [phone] Danny WONG MD, Rusty Gomez Primary Care Provider [phone] Carina Ziegler RN Unavailable Unavailable Source Comments In the event this information is protected by the Federal Confidentiality of Alcohol and Drug AbusePatient Records regulations: The Federal rules restrict any use of the information to criminally investigate or prosecute any alcohol or drug abuse patient.[facility] Reason for Visit * Reason Comments Referral - Liver Txp Return Call Request Encounter Details Date Type Department Care Team (Late st Contact Info) Description 03/26/2024 Telephone Transplant Center [address] [place] [id number] Coordinator, Liver Txp 9500 [place] [address] Referral - Liver Txp; Return Call Request Social History Tobacco Use [...] Bebe Gutierrez MA documented in this encounter Miscellaneous Notes * Telephone Encounter - Alida Brennan - 03/27/2024 2:30 PM EST Patient spouse Fabiana called back in asking can someone give call for Liver intake # [phone] * Telephone Encounter - ZohrehmarinGisell - 03/26/2024 1:40 PM EST Fabiana, patient's is returning call for Liver Transplant Intake, she is requesting a call back, and phone number to call is her mobile # [phone]. Gisell Newsome documented in this encounter Plan of Treatment Upcoming Encounters Date Type Department Care Team (Late st Contact Info) Description 11/21/2024 4:00 PM EDT Office Visit Transplant Center [address] [address] KAYLIE ARELLANO 11/21/2024 5:40 PM EDT Appointment MRI Q [address] [address] Compression fracture of cervical spine, non-traumatic, with delayed healing, subsequent encounter [M48.52XG] 11/21/2024 6:20 PM EDT Appointment MRI Q [address] [address] Compression fracture of cervical spine, non-traumatic, with delayed healing, subsequent encounter [M48.52XG] 11/21/2024 7:00 PM EDT Appointment MRI Q [address] [address] Compression fracture of cervical spine, non-traumatic, with delayed healing, subsequent encounter [M48.52XG] 02/03/2025 9:00 AM EDT [facility] Neurology 9300 [place] [address] Devyn Roach MD 8960 [place], [place] [address] Vertigo [R42] 02/10/2025 11:00 AM EDT Appointment Gastroenterology [address] [address] Jane Correia MD 3690 [place], [place] [address] Schedule in about 3 months to remove [...] documented as of this encounter Care Teams Chief Radiology Relationship Specialty Start Date End Date Rusty Delgado II, MD 112 [facility] 110 [place] [address] PCP - General Internal Medicine 05/28/24 Irena Johnson MD 3000 [facility] 1620 [place] [address] Referring Gastroenterology 03/12/24 Vanessa Arora MD [address] [place] [address] Primary Staff Physician Cardiology 05/02/24 Carina Ziegler, RN [facility] [address] [place] [address] Registered Nurse Transplant Center 09/17/24 documented as of this encounter
--- OUTSIDE RECORDS SUMMARY | 2024-11-19 02:23 | XMS_ITS | Encounter Summary ---
Author Organization [facility] Address [address] [place] [address] Care Team Providers Care Business Strategy Manager Name Role Phone Irena Johnson MD Unavailable Vanessa Arora MD Unavailable [phone] Danny WONG MD, Rusty Gomez Primary Care Provider [phone] Carina Ziegler RN Unavailable Unavailable Source Comments In the event this information is protected by the Federal Confidentiality of Alcohol and Drug AbusePatient Records regulations: The Federal rules restrict any use of the information to criminally investigate or prosecute any alcohol or drug abuse patient.[facility] Reason for Visit * Reason Comments CoPat Management Lab review Encounter Details Date Type Department Care Team (Late st Contact Info) Description 11/07/2024 Patient Update Infectious Disease 9300 [place], [place] [id number] Say Maldonado [facility] CoPat Management (Lab review) Social History Tobacco Use Types Packs/Day Years Used Date Smoking Tobacco: Former Cigarettes 1 20 1 04/20/1970 - 02/18/1991 Alcohol Use Standard Drinks/Week Comments Not Currently 0 (1 standard drink = 0.6 oz pur e alcohol) Recovering alcoholic [facility] Utilities Answer Date Recorded In the [...] is lower risk 7 04/25/2024 Data from: https://www.neighborhoodatlas.medicine.[facility].edu/. Last address used for calculation Eugene Villanueva [...] documented in this encounter Progress Notes * Say Maldonado RPh - 11/07/2024 10:42 AM EDT [facility] OPAT Documentation Note OPAT Pharmacist Lab Review Weekly OPAT labs reviewed. The patient is currently receiving the following IV antimicrobials as part of their OPAT therapy: daptomycin 700mg IV every 24 hours. Tentative OPAT stop date is 11/12. WBC 3.31 (slightly low but baseline around 4-6s - OK to monitor), hgb 7.6, plt 554, diff stable. Scr 0.99. CK 10. No pharmacist recommendations at this time. Lab Abnormalities Noted: none Total Time Spent on this Encounter (in minutes): < 5 Say Maldonado RPh 11/07/2024 10:42 AM documented in this encounter Plan of Treatment Upcoming Encounters Date Type Department Care Team (Late st Contact Info) Description 11/21/2024 4:00 PM EDT Office Visit Transplant Center [address] [place] [address] KAYLIE ARELLANO 11/21/2024 5:40 PM EDT Appointment MRI Q [address] [address] Compression fracture of cervical spine, non-traumatic, with delayed healing, subsequent encounter [M48.52XG] 11/21/2024 6:20 PM EDT Appointment MRI Q [address] [address] Compression fracture of cervical spine, non-traumatic, with delayed healing, subsequent encounter [M48.52XG] 11/21/2024 7:00 PM EDT Appointment MRI Q [address] [address] Compression fracture of cervical spine, non-traumatic, with delayed healing, subsequent encounter [M48.52XG] 02/03/2025 9:00 AM EDT [facility] Neurology 9300 [place] [address] Devyn Roach MD 0 [place] [address] Vertigo [R42] 02/10/2025 11:00 AM EDT Appointment Gastroenterology [address] [address] Jane Correia MD 9500 [place] [address] Schedule in about 3 months to remove biliary stent documented as of this encounter Goals Goal Patient Goal Type Associated Problems Recent Progress Patient-Stated? Author Blood Pressure < 130/80 Blood Pressure 122/80( 025 5:30 PM EDT) No Vanessa Arora MD documented as of this encounter Visit Diagnoses Not on filedocumented in this encounter Care Teams Business Strategy Manager Relationship Specialty Start Date End Date Rusty Delgado II, MD 112 [facility] 110 [place] [address] PCP - General Internal Medicine 05/28/24 Irena Johnson MD 3000 [facility] 1620 [place] [address] Referring Gastroenterology 03/12/24 Vanessa Arora MD 1420 [place] [address] Primary Staff Physician Cardiology 05/02/24 Carina Ziegler RN [facility] [address] [place] [address] Registered Nurse Transplant Center 09/17/24 documented as of this encounter
--- OUTSIDE RECORDS SUMMARY | 2024-11-19 02:26 | XMS_ITS | Encounter Summary ---
Author Organization [facility] Address [address] [place] [address] Care Team Providers Care Treating Engineer Name Role Phone Rusty Delgado MD Unavailable [phone] Rusty Delgado MD Primary Care Provider Encounter Details Date Type Department Care Team (Late st Contact Info) Description 11/14/2024 Telephone [facility] Gerard [facility] [address] [facility] 110 [place] [address] Rusty Delgado MD 112 [place] [facility] 110 [place] [address] Social History Tobacco Use Types [...] Never 12/12/2023 How often do you attend judaism or quaker serv ices? Never 12/12/2023 Do you belong to any clubs o r organizations such as judaism groups, unions, fraternal or athletic groups, or [...] Recorded Patient Health Questionnaire-2 Score 0 08/19/2024 [facility] - Occupational Stress Questionnaire Answer Date [...] any time in the past 12 m onths, were you homeless or living in a halfway (including now)? No 12/12/2023 Sex and Gender Information Value Date Recorded Sex Assigned at Male 12/12/2023 1:36 PM EDT Legal Sex Male 11:50 PM EDT Gender Identity Male 12/12/2023 1:36 PM EDT Sexual Orientation Asexual 12/12/2023 1: 36 PM EDT documented as of this encounter Miscellaneous Notes * Telephone Encounter - Rachel Colon MA - 11/14/2024 4:09 PM EDT Hi, my name is [facility] giving you a call about Mr. Referral we just received from [facility], [place], [place], Joseph Philippe. Birthday to 1955, need to know ifDr. Rusty Delgado will follow for his home health care could give us a call back at [phone]. Thank you, and he is just judging tomorrow. Thanks. Returned call stated yes he will follow pt documented in this encounter Plan of Treatment Upcoming Encounters Date Type Department Care Team (Late st Contact Info) Description 11/20/2024 11:00 AM EDT Office Visit [facility] Danny Whitten [address] [facility] 110 [place] [address] Rusty Delgado MD [address] [facility] 110 [place] [address] documented as of this encounter Visit Diagnoses Not on filedocumented in this encounter Care Teams Treating Engineer Relationship Specialty Start Date End Date Rusty Delgado MD [address] [facility] 110 [place] [address] PCP - [employer] 04/17/22 Rusty Delgado MD 112 [facility] 110 [place] [address] PCP - General Internal Medicine 11/23/22 documented as of this encounter
--- OUTSIDE RECORDS SUMMARY | 2024-11-19 02:26 | XMS_ITS | Encounter Summary ---
Author Organization [facility] Address [address] [place] [address] Care Team Providers Care Extended Insurance Clerk Name Role Phone Rusty Delgado MD Unavailable [phone] Rusty Delgado MD Primary Care Provider [phone] Encounter Details Date Type Department Care Team (Late st Contact Info) Description 11/15/2024 [facility]inisync Result Encounter [facility] External Department Unsolicited [...] Never 12/12/2023 How often do you attend yarsani or cheondoism serv ices? Never 12/12/2023 Do you belong to any clubs o r organizations such as yarsani groups, unions, fraternal or athletic groups, or [...] Recorded Patient Health Questionnaire-2 Score 0 08/19/2024 [facility] - [...] any time in the past 12 m [facility], were you homeless or living in a [...] Visit [facility] [address] [place] [address] Rusty Delgado MD [address] [facility] [address] [place] [address] documented as of this encounter Procedures Procedure Name Priority Date/Time Associated Diagnosis Comments [facility] PHOSPHATE SERPL-MCNC Routine 11/15/2024 5:30 AM EDT [facility] PATH INTERP CBCDIF (LAB REFLEX ORDER-NO BILL) Routine 11/15/2024 5:30 AM EDT [facility] CBC W AUTO DIFF BLD Routine 11/15/2024 5:30 AM EDT [facility] MAGNESIUM SERPL-MCNC Routine 11/15/2024 5:30 AM EDT [facility] COMP METAB 2000 PNL SERPL Routine 11/15/2024 5:30 AM EDT documented in this encounter Results * [facility] PATH INTERP CBCDIF (LAB REFLEX ORDER-NO BILL) (11/15/2024 5:30 AM EDT) [facility] STAFF REVIEW, CBCDIF [facility] Comment: Normocytic anemia with slight polychromasia Leukopenia with absolute lymphopenia Thrombocytosis [facility] PROPERTY MASTER REVIEW Reviewed by Leona Mak MD [facility] 11/15/2024 5:30 AM EDT 11/15/2024 1:31 PM EDT Narrative MALLORY - 11/15/2024 7:18 PM EDT Specimen Type: BLOOD SPECIMEN Ordering Facility: [facility] Address: [address] [place] [address] Original Ordering Provider: CAMILA PALMER us Generic External Data Provider REIDISYGARRICK F inal Result [facility] [address] [facility] [address] [place] [id number] * (ABNORMAL) [facility] CBC W AUTO DIFF BLD (11/15/2024 5:30 AM EDT) [facility] WBC # BLD AUTO 2.45(L) 3.70 - 11.00 k/uL CCF CCF RBC # BLD AUTO 2.57(L) 4.20 - 6.00 m/uL CCF CCF HGB BLD-MCNC 7.8(L) 13.0 - 17.0 g/dL CCF CCF HCT VFR BLD AUTO 25.4(L) 39.0 - 51.0 % CCF [facility] MCV RBC AUTO 98.8 80.0 - 100.0 fL CCF [facility]CF MCH RBC QN AUTO 30.4 26.0 - 34.0 pg CCF [facility]CF MCHC RBC AUTO-MCNC 30.7 30.5 - 36.0 g/dL CCF CCF RDW RBC-RTO 19.2(H) 11.5 - 15.0 % CCF CCF PLATELET # BLD AUTO 583(H) 150 - 400 k/uL CCF [facility]CF PMV BLD AUTO 9.0 9.0 - 12.7 fL CCF CCF NRBC/100 WBC BLD-RTO 1.0 /100 WBC CCF CCF NRBC # BLD AUTO 0.02(H) <0.01 k/uL CCF [facility]CF NEUTROPHILS/LEUK NFR BLD AUTO 66.0 % [facility]CF [facility]CF NEUTROPHILS # BLD AUTO 1.62 1.45 - 7.50 k/uL CCF CCF LYMPHOCYTES/LEUK NFR BLD AUTO 17.0 % CCF CCF LYMPHOCYTES # BLD AUTO 0.42(L) 1.00 - 4.00 k/uL CCF CCF MONOCYTES/LEUK NFR BLD AUTO 2.0 % CCF CCF MONOCYTES # BLD AUTO 0.05 <0.87 k/uL CCF CCF EOSINOPHIL/LEUK NFR BLD AUTO 3.0 % CCF CCF EOSINOPHIL # BLD AUTO 0.07 <0.46 k/uL CCF CCF BASOPHILS/LEUK NFR BLD AUTO 5.0 % CCF CCF BASOPHILS # BLD AUTO 0.12(H) <0.11 k/uL CCF CCF META% 5.0 % CCF CCF MYELO% 2.0 % CCF [facility]CF WBC LEFT SHIFT BLD QL AUTO Present CCF PLATELET # BLD EST Increased CCF CCF RED CELL MORPH Reviewed: see results of individual morphologies CCF CCF POLYCHROMASIA BLD QL SMEAR Slight CCF CCF ANISOCYTOSIS Present CCF CCF OVALOCYTES BLD QL SMEAR Few CCF CCF DIFFERENTIAL METHOD BLD Manual [facility] 11/15/2024 5:30 AM EDT 11/15/2024 1:31 PM EDT Narrative CLINISYNC - 11/15/2024 7:18 PM EDT Specimen Type: BLOOD SPECIMEN Ordering Facility: [facility] Address: [address] [place] [address] Original Ordering Provider: CAMILA PALMER us Generic External Data Provider MALLORY E sam Result - Final [facility] [id number] [place] [id number] CCF [address] [address] * [facility] PHOSPHATE SERPL-MCNC (11/15/2024 5:30 AM EDT) [facility] PHOSPHATE SERPL-MCNC 4.7 2.7 - 4.8 mg/dL CCF 11/15/2024 5:30 AM EDT 11/15/2024 9:05 AM EDT Narrative CLINISYNC - 11/15/2024 10:09 AM EDT Specimen Type: BLOOD SPECIMEN Ordering Facility: [facility] Address: [address] [place] [address] Original Ordering Provider: CAMILA PALMER Generic External Data Provider CLINISYNC F inal Result Performing Organization Address [facility] Co de Phone Number MALLORY DIA [address] [place] [id number] * [facility] MAGNESIUM SERPL-MCNC (11/15/2024 5:30 AM EDT) [facility] MAGNESIUM SERPL-MCNC 2.1 1.7 - 2.3 mg/dL [facility]CF 11/15/2024 5:30 AM EDT 11/15/2024 9:05 AM EDT Narrative CLINISYNC - 11/15/2024 10:09 AM EDT Specimen Type: BLOOD SPECIMEN Ordering Facility: [facility] Address: [address] [place] [address] Original Ordering Provider: CAMILA PALMER Generic External Data Provider CLIN[facility]NC F inal Result Performing Organization Address [facility] de Phone Number MALLORY DIA [address] [place] [address] * (ABNORMAL) [facility] COMP METAB 2000 PNL SERPL (11/15/2024 5:30 AM EDT) [facility]CF PROT SERPL-MCNC 5.5(L) 6.3 - 8.0 g/dL CCF [facility] ALBUMIN SERPL-MCNC 2.9(L) 3.9 - 4.9 g/dL CCF CCF CALCIUM SERPL-MCNC 8.6 8.5 - 10.2 mg/dL CCF [facility] BILIRUB SERPL-MCNC 0.2 0.2 - 1.3 mg/dL CCF C[facility] ALP SERPL-CCNC 143(H) 38 - 113 U/L CCF CCF AST SERPL-CCNC 20 14 - 40 U/L CCF CCF ALT SERPL-CCNC 11 10 - 54 U/L CCF CCF GLUCOSE SERPL-MCNC 88 74 - 99 mg/dL CCF Comment: The [place] Diabetes [employer] (ADA) provides guidance for cutoff [...] Standards of Medical Care in Diabetes 2016, [place] [employer]. Diabetes Care. 2016.39(Suppl 1). [facility] BUN SERPL-MCNC 17 9 - 24 mg/dL CCF [facility] CREAT SERPL-MCNC 1.52(H) 0.73 - 1.22 mg/dL CCF CCF SODIUM SERPL-SCNC 135(L) 136 - 144 mmol/L CCF CCF POTASSIUM SERPL-SCNC 5.1 3.7 - 5.1 mmol/L CCF CCF CHLORIDE SERPL-SCNC 101 98 - 107 mmol/L CCF CCF CO2 SERPL-SCNC 22 22 - 30 mmol/L CCF CCF ANION GAP SERPL-SCNC 12 8 - 15 mmol/L CCF EGFRCR SERPLBLD CKD-EPI 2020 49(L) >=60 mL/min/1. 73m??? CCF Comment:Estimated Glomerular Filtration Rate (eGFR) is calculated using the 2020 CKD-EPI creatinine equation. This equation utilizes serum creatinine, sex, and age as parameters. The creatinine assay has traceable calibration to isotope dilution- mass spectrometry. Refer to KDIGO guidelines for clinical interpretation. In patients with unstable renal function, e.g. those with acute kidney injury, the eGFR may not accurately reflect actual GFR. 11/15/2024 5:30 AM EDT 11/15/2024 9:05 AM EDT Narrative CLINISYNC - 11/15/2024 10:09 AM EDT Specimen Type: BLOOD SPECIMEN Ordering Facility: [facility] Address: [address] [place] [address] Original Ordering Provider: SUZE JENKINS us Generic External Data Provider [place] [address] [place] [address] documented in this encounter Visit Diagnoses Not on filedocumented in this encounter Care Teams Extended Insurance Clerk Relationship Specialty Start Date End Date Rusty Delgado MD [address] [facility] [address] [place] [address] PCP - [employer] 04/17/22 Rusty Delgado MD [address] [facility] [address] [place] [address] PCP - General Internal Medicine 11/23/22 documented as of this encounter
--- OUTSIDE RECORDS SUMMARY | 2024-11-19 02:26 | XMS_ITS | Clinical Summary ---
Author Organization [facility] Address [address] [place] [id number] Care Team Providers Care Trace Evidence Technician Name Role Phone Irena Johnson MD Unavailable Vanessa Arora MD Unavailable [phone] Danny WONG MD, Rusty Gomez Primary Care Provider [phone] Carina Ziegler RN Unavailable Unavailable Allergies No known active allergies Medications heparin 5,000 unit/mL injection Inject 1 mL subcutaneously every 12 hours. Active furosemide (LASIX) 40 mg tablet Take 1 tablet by mouth once daily. Patient should start on October 31, 2024. 90 tablet Active benzonatate (TESSALON PERLE) 100 mg capsule Take 1 capsule by mouth three times a day as needed for cough. Active polyethylene glycol 3350 17 gram packet Take 1 packet by mouth once daily. Dissolve dose in 4 - 8 ounces of liquid and take as directed. 025 Active valGANciclovir (VALCYTE) 450 mg tablet Take 2 tablets by mouth two times a day with meals. 025 Active buprenorphine (BUTRANS) 10 mcg/hour transdermal patchIndicatio ns:Compression fracture of cervical spine, non-traumatic, with delayed healing, subsequent encounter,Gene ralized abdominal pain Apply 1 patch as directed one time a week ( On Tuesdays) 4 patch 11/16/19 25 9:11 AM EDT 025 2024 Active linaclotide (LINZESS) 145 mcg capsule Take 1 capsule by mouth once daily. -Take capsule on an empty stomach at least 30 minutes before a meal at the same time each day. Capsule should be swallowed whole. DO NOT chew or crush 30 capsule 2 Active simethicone, chewable (MYLICON) 80 mg chewable tablet Take 1 tablet by mouth four times a day as needed. 9am,12n, 6pm, 9pm 120 tablet 2 Active midodrine (PROAMATINE) 10 mg tablet Take 1 tablet by mouth three times a day. 9am, 12 noon, and 6pm 90 tablet 2 11/16/19 9:11 AM EDT Active tamsulosin (FLOMAX) 0.4 mg Take 1 capsule by mouth daily at bedtime. 30 capsule 2 11/16/19 9:11 AM EDT Active melatonin 3 mg tablet Take 1 tablet by mouth daily at bedtime. 30 tablet 2 Active oxyCODONE IR (ROXICODONE) 5 mg immediate release tabletIndicati ons:Compressio n fracture of cervical spine, non-traumatic, with delayed healing, subsequent encounter,Gene ralized abdominal pain Take 1 tablet by mouth two times a day for 14 days. FOR PAIN. 28 tablet 11/16/19 9:11 AM EDT 2024 Active acetaminophen (TYLENOL) 500 mg tablet Take 1 tablet by mouth every 6 hours as needed for pain. 60 tablet Active aspirin 81 mg chewable tablet Take 1 tablet by mouth once daily. 30 tablet 11 Active famotidine (PEPCID) 20 mg tablet Take 1 tablet by mouth two times a day. 60 tablet 3 11/16/19 9:11 AM EDT Active methocarbamol (ROBAXIN) 750 mg tablet Take 1 tablet by mouth two times a day. 60 tablet 1 11/16/19 25 9:11 AM EDT Active Mirtazapine (REMERON) 7.5 mg tablet Take 1 tablet by mouth daily at bedtime. 30 tablet 2 11/16/19 9:11 AM EDT Active multivitamin tablet Take 1 tablet by mouth once daily. 30 tablet [address] (PROTONIX) 40 mg tablet Take 1 tablet by mouth once daily. 30 tablet 3 11/16/19 9:11 AM EDT Active sulfamethoxazo le-trimethopri m (BACTRIM DS) 800-160 mg per tablet Take 1 tablet by mouth every Monday, Monday, and Monday. 15 tablet 10 11/16/19 9:11 AM EDT Active tacrolimus IR (PROGRAF) 5 mg capsule Take 1 capsule by mouth two times a day. 300 capsule 11 11/16/19 9:11 AM ED Active traZODone (DESYREL) 50 mg tablet Take 1 tablet by mouth daily at bedtime. 30 tablet 2 11/16/19 9:11 AM EDT Active ursodiol (ACTIGALL) 300 mg capsule Take 1 capsule by mouth three times a day. 90 capsule 5 11/16/19 9:11 AM ED Active acyclovir (ZOVIRAX) 400 mg tablet Take 1 tablet by mouth two times a day. 60 tablet 11/16/19 9:11 AM EDT Active ciprofloxacin HCl (CIPRO) 500 mg tablet Take 1 tablet by mouth two times a day for 5 days. 10 tablet 11/16/19 9:11 AM EDT 025 2024 Active multivitamin tablet Take 1 tablet by mouth once daily. 2024 Discontinued CALCIUM CARB/VIT D3/MINERALS (CALCIUM CARBONATE-VIT D3-MIN) 1,200 mgcalcium -1,000 unit chew Take 2 tablets by mouth once daily. 2024 Discontinued acetaminophen (TYLENOL) 500 mg tablet Take 1 tablet by mouth every 6 hours as needed for pain. 60 tablet 025 2024 Discontinued acyclovir (ZOVIRAX) 400 mg tablet Take 1 tablet by mouth two times a day. 60 tablet 2 025 2024 Discontinued sulfamethoxazo le-trimethopri m (BACTRIM DS) 800-160 mg per tablet Take 1 tablet by mouth every Monday, Monday, and Monday. 15 tablet 2 2024 Discontinued magnesium oxide (MAG-OX) 400 mg (241.3 mg magnesium) tablet Take 1 tablet by mouth two times a day. 2024 Discontinued calcium carbonate (TUMS) 500 mg chew Take 1 tablet by mouth three times a day as needed. 2024 Discontinued methocarbamol (ROBAXIN) 500 mg tablet Take 1 tablet by mouth three times a day as needed (muscle spasm). 2024 Discontinued midodrine (PROAMITINE) 5 mg tablet Take 1 tablet by mouth every 8 hours. [address] (PROTONIX) 40 mg tablet Take 1 tablet by mouth two times a day before meals at 6 am and 4 pm. 2024 Discontinued traZODone (DESYREL) 50 mg tablet Take 1 tablet by mouth daily at bedtime. 2024 Discontinued famotidine (PEPCID) 20 mg tablet Take 1 tablet by mouth two times a day. 2024 Discontinued furosemide (LASIX) 20 mg tablet Take 1 tablet by mouth once daily. 2024 Discontinued tacrolimus IR (PROGRAF) 1 mg capsule Take 4 capsules by mouth two times a day. 2024 Discontinued tamsulosin (FLOMAX) 0.4 mg Take 1 capsule by mouth daily at bedtime. 2024 Discontinued insulin lispro 100 unit/mL injection Inject 2 Units subcutaneously three times a day with meals. plus sliding scale 3 times daily with meals If Blood Glucose (mg/dL) is <110 Give 0 units 111-150 Give 0 units 151-200 Give 2 unit 201-250 Give 4 units 251-300 Give 6 units 301-350 Give 8 units 351-400 Give 10 units >400 give 10units and notify provider. If blood glucose is less than 70 mg/dL implement hypoglycemia treatment orders and notify pro 025 2024 Discontinued tacrolimus IR (PROGRAF) 5 mg capsule Take 1 capsule by mouth two times a day. 2024 Discontinued aspirin 81 mg chewable tablet Take 1 tablet by mouth once daily. 025 2024 Discontinued DAPTOmycin (CUBICIN) 700 mg/100 mL pgbk iv piggyback in NaCl 0.9% 100 mL Inject 100 mL intravenously every 24 hours for 14 days. 1400 mL 2024 mirtazapine (REMERON) 15 mg tablet Take 1 tablet by mouth daily at bedtime. 90 tablet 2024 Discontinued oxyCODONE IR (ROXICODONE) 5 mg immediate release tablet Take 1 tablet by mouth every 6 hours as needed for up to 7 days. 0 2024 ursodiol (ACTIGALL) 300 mg capsule Take 1 capsule by mouth three times a day. 270 capsule 2024 Discontinued iv contrast (will be provided with radiology [...] in the MR contrast administration guidelines link. 1 each 2024 magnesium oxide (MAG-OX) 400 mg (241.3 mg magnesium) tablet Take 2 tablets by mouth three times a day. 9am, 3pm, 9pm 180 tablet 5 2024 Discontinued(C ourse of therapy completed) ciprofloxacin HCl (CIPRO) 500 mg tablet Take 1 tablet by mouth two times a day for 5 days. 10 tablet 2024 Discontinued(C ourse of therapy completed) Active Problems Patient Care Coordination No te Formatting of this note is d ifferent from the original. Indication for Surgery: Decompensated alcohol-induced cirrhosis Important/Relevant PMH/PSH: 69-year-old male with a history of alcohol-induced cirrhosis, complicated by portal hypertension, ascites, hepatic encephalopathy (HE), and large esophageal varices (EV), as well as hereditary hemorrhagic telangiectasia (HHT) and [place] s esophagus (status post basal cell carcinoma excision in 2017), was recently diagnosed with hepatocellular carcinoma (HCC) Preoperative Hospital Course: (narrative or log of major events) He presented to the emergency department on 08/23 due to a sudden increase in confusion and worsening abdominal bloating. Initially admitted to the [facility] for suspected hepatic encephalopathy, his condition deteriorated, leading to transfer to the MICU on 08/27. He was previously evaluated for liver transplant but evaluation was closed due to suspected metastatic HCC in the setting of a thoracic spine lesion. He subsequently underwent biopsy of this T10 lesion on 08/06- path revealed Intraosseous hibernoma. Patient underwent OLT on 09/09/24 and transferred to SICU following for continued monitoring. Airway Difficulty: Grade I - Spann, 8.0 ETT Difficult Central Access: No Recent ECHO: Date: LVEF: 69% RVF: The right ventricle is normal in size. Right ventricular systolic function is normal. Code Status: Full Chronological List of Surgeries and Major Events (Diagnosis): (Surgeries in bold characters) 09/09/2024: DCD OLT Major Events within past 24 hours ; -Right Chest tube output slowing down -HDS on 10 mg midodrine q8 A/P of Major Active Problems (excluding routine care and common problems): Neuro: Post op pain - IV push fentanyl for BTP, scheduled Tylenol and prn Oxycodone - Pain well-controlled - Aox3 - pt reportedly slept 6 hours overnight - Continue trazodone at bedtime CV: History of hypertension - Maintain MAP >65 - Monitor lactate level and UOP. Fluid resuscitation as needed. - pressors as required to maintain MAP - History of HTN, hold Coreg - Continue midodrine 10 mg q8 Resp: Pleural effusion, hepatohydrothorax - CT chest (09/01) revealed stable large right pleural effusion and complete collapse of right lower and middle lobe - thoracic team signed off given lack of urgent need for thora and lack of overt hypoxia or tachypnea - maintain sats > 92% - BPH/IS/PEP/OOB - On RA - Pigtail placed 09/12 - monitoring output: 386 cc in 24 hours (91 cc last 7 hours), overall decreasing output. Plan for transition from full suction to water seal. Will monitor. GI: Liver Transplant recipient, hepatic encephalopathy, HCC, grade II EV, portal HTN - GI Soft - OLT 09/09/24 - Hold home bumex and spironolactone - PPI ppx - immunosuppression per transplant - Continue octreotide infusion elevated resistive arterial indices; follow up repeat US - Bowel regimen PRN senna Renal/FEN: Chronic iso-osmotic hyponatremia 2/2 hypervolemia/cirrhosis, nonoliguric PERLITA on CKD stage 3 2/2 ATI vs HRS - Arben 120 requiring urea 15 g daily + tolvaptan 15 g (09/06 - ) -Urine Na <20, Urine osm 505 - baseline Cr 1.4 - Continue holding Tolvaptan - Nephrology following - trend sCr, Strict I/Os - Holding diuresis and mIVF per nephro - Na 131 this am - UOP: 2.5L last 24 hours, currently has 50 cc/hr NS mIVF Heme: S/p OLT 09/09/24 - Monitor H&H and s/s of bleeding - Transfuse for hemoglobin < 7 - Transfuse with products as needed. - SQH for anticoagulation ppx Infectious Disease: Leukocytosis - Trend WBC, temperature status - abx per transplant team Endo: - SSI #3 - insulin glargine 8 units at bedtime - steroid taper Nutrition: GI soft Daily Plan Summary and Significant Findings or Concerns: -Chest tube to water seal -Continue to monitor sodium levels -Ok for floor transfer Barriers to transfer out of ICU: None Disposition: RNF Problem Noted Date Diagnosed Date Biliary stricture of transplanted liver 10/29/19 25 Nausea & vomiting 10/24/2024 Assessment & Plan (10/29/2024 12:49 PM EDT): Assessment: KUB 10/24: Gastric gaseous distention. Scattered gas-filled nondilated small bowel and colon. NG placed 7/10: [address] abdomen and pelvis 10/24: Further mild interval decrease in size of gallbladder fossa collection. Of note, the previously well-positioned percutaneous drain is now slightly retracted, with a few of the sideholes now within the hepatic parenchyma. Slightly increased moderate volume ascites, with new peritoneal thickening/enhancement, suggestive of peritonitis, perhaps bile peritonitis given somewhat malpositioned percutaneous drain within the known biliary leak. -> reviewed NG removed 10/25 due to minimal output Nausea and vomiting resolved Plan: Monitor Continue regular diet Continue bowel regimen Zofran PRN Assessment & Plan (10/28/2024 2:33 PM EDT): Assessment: KUB 7/10: Gastric gaseous distention. Scattered gas-filled nondilated small bowel and colon. NG placed 10: [address] abdomen and pelvis 10/24: Further mild interval decrease in size of gallbladder fossa collection. Of note, the previously well-positioned percutaneous drain is now slightly retracted, with a few of the sideholes now within the hepatic parenchyma. Slightly increased moderate volume ascites, with new peritoneal thickening/enhancement, suggestive of peritonitis, perhaps bile peritonitis given somewhat malpositioned percutaneous drain within the known biliary leak. -> reviewed NG removed 10/25 due to minimal output Nausea and vomiting resolved Plan: Monitor Continue regular diet Continue bowel regimen Zofran PRN Assessment & Plan (10/27/2024 10:30 AM EDT): Assessment: KUB 7/10: Gastric gaseous distention. Scattered gas-filled nondilated small bowel and colon. NG placed 10: [address] abdomen and pelvis 10/24: Further mild interval decrease in size of gallbladder fossa collection. Of note, the previously well-positioned percutaneous drain is now slightly retracted, with a few of the sideholes now within the hepatic parenchyma. Slightly increased moderate volume ascites, with new peritoneal thickening/enhancement, suggestive of peritonitis, perhaps bile peritonitis given somewhat malpositioned percutaneous drain within the known biliary leak. -> reviewed NG removed 10/25 due to minimal output Nausea and vomiting resolved Plan: Monitor Continue regular diet Continue bowel regimen Zofran PRN Assessment & Plan (10/26/2024 11:03 AM EDT): Assessment: KUB 7/10: Gastric gaseous distention. Scattered gas-filled nondilated small bowel and colon. NG placed 10/24: [address] abdomen and pelvis 10/24: Further mild interval decrease in size of gallbladder fossa collection. Of note, the previously well-positioned percutaneous drain is now slightly retracted, with a few of the sideholes now within the hepatic parenchyma. Slightly increased moderate volume ascites, with new peritoneal thickening/enhancement, suggestive of peritonitis, perhaps bile peritonitis given somewhat malpositioned percutaneous drain within the known biliary leak. -> reviewed NG removed 10/25 due to minimal output Nausea and vomiting resolved Plan: Monitor Advance diet to regular Continue bowel regimen Assessment & Plan (10/25/2024 2:02 PM EDT): Assessment: KUB 7/10: Gastric gaseous distention. Scattered gas-filled nondilated small bowel and colon. NG placed 10/24: [address] abdomen and pelvis 10/24: Further mild interval decrease in size of gallbladder fossa collection. Of note, the previously well-positioned percutaneous drain is now slightly retracted, with a few of the sideholes now within the hepatic parenchyma. Slightly increased moderate volume ascites, with new peritoneal thickening/enhancement, suggestive of peritonitis, perhaps bile peritonitis given somewhat malpositioned percutaneous drain within the known biliary leak. -> reviewed Plan: Continue NG tube, monitor output NPO except meds, ice chips, sips of water Continue bowel regimen Assessment & Plan (10/24/2024 4:56 PM EDT): Assessment: several episodes of emesis in last 24 hours KUB 7/10-Gastric gaseous distention. Scattered gas-filled nondilated small bowel and colon. Plan: place NGT today to continues low suction NPO except meds CT abdomen/pelvis with IV and oral contrast as per Dr. Maldonado Generalized weakness 10/23/2024 Chronic bilateral low back pain without sciatica 10/22/2024 Assessment & Plan (10/29/2024 12:50 PM EDT): Assessment: History of T11 and T12 compression fractures Reported worsening back pain (pain is in his lower back, not around location of compression fractures) Plan: Consulted Neurosurgery - not an appropriate surgical candidate (risk of surgery outweigh benefit - see consult note from 10/22), no additional imaging needed, neurosurgery signed off Pain control Assessment & Plan (10/28/2024 2:33 PM EDT): Assessment: History of T11 and T12 compression fractures Reported worsening back pain (pain is in his lower back, not around location of compression fractures) Plan: Consulted Neurosurgery - not an appropriate surgical candidate (risk of surgery outweigh benefit - see consult note from 10/22), no additional imaging needed, neurosurgery signed off Pain control Assessment & Plan (10/27/2024 10:30 AM EDT): Assessment: History of T11 and T12 compression fractures Reported worsening back pain (pain is in his lower back, not around location of compression fractures) Plan: Consulted Neurosurgery - not an appropriate surgical candidate (risk of surgery outweigh benefit - see consult note from 10/22), no additional imaging needed, neurosurgery signed off Pain control Assessment & Plan (10/26/2024 11:03 AM EDT): Assessment: History of T11 and T12 compression fractures Reported worsening back pain Plan: Consulted Neurosurgery - not an appropriate surgical candidate (risk of surgery outweigh benefit - see consult note from 10/22), no additional imaging needed, neurosurgery signed off Pain control Assessment & Plan (10/25/2024 1:59 PM EDT): Assessment: History of T11 and T12 compression fractures Reported worsening back pain Plan: Consulted Neurosurgery - not an appropriate surgical candidate (risk of surgery outweigh benefit - see consult note from 10/22), no additional imaging needed, neurosurgery signed off Pain control Assessment & Plan (10/24/2024 4:53 PM EDT): Assessment: hx of T11 and T12 compression fractures reported worsening back pain Plan: -consulted neurosurgery-not an appropriate surgical candidate, no additional imaging needed, neurosurgery signed off Assessment & Plan (10/23/2024 11:07 AM EDT): Assessment: hx of T11 and T12 compression fractures reported worsening back pain Plan: consulted neurosurgery _. Not sn appropriate surgical candidate, no additional imaging needed, neurosurgery signed off Assessment & Plan (10/22/2024 4:39 PM EDT): Assessment: hx of T11 and T12 compression fractures reported worsening back pain Plan: consulted neurosurgery today, appreciate recommendations MRI C/T/L spine with and without contrast ordered today as per neurosurgery recommendations Vertigo 10/21/2024 Assessment & Plan (10/29/2024 12:48 PM EDT): Assessment: Reported vertigo CT brain 10/07: negative MRI brain 7/10: negative for acute abnormality Plan: Flomax stopped 7/7 Monitor vitals Discussed with Neurology - plan for outpatient follow up with Vestibular Neurologist, Dr. Roach Assessment & Plan (10/28/2024 2:32 PM EDT): Assessment: Reported vertigo CT brain 10/07: negative MRI brain 7/10: negative for acute abnormality Plan: Flomax stopped 7/7 Monitor vitals Discussed with Neurology - plan for outpatient follow up with Vestibular Neurologist, Dr. Roach Assessment & Plan (10/27/2024 10:29 AM EDT): Assessment: Reported vertigo CT brain 10/07: negative MRI brain 7/10: negative for acute abnormality Plan: Flomax stopped 7/7 Monitor vitals Discussed with Neurology - plan for outpatient follow up with Vestibular NeurologistDr. Roach Assessment & Plan (10/26/2024 11:03 AM EDT): Assessment: Reported vertigo CT brain 10/07: negative MRI brain 7/10: negative for acute abnormality Plan: Flomax stopped 7/7 Monitor vitals Discussed with Neurology - plan for outpatient follow up with Vestibular NeurologistDr. Roach Assessment & Plan (10/25/2024 1:57 PM EDT): Assessment: Reported vertigo CT brain 10/07: negative MRI brain 7/10: negative for acute abnormality Plan: Flomax stopped 7/7 Monitor vitals Discussed with Neurology - plan for outpatient follow up with Vestibular Neurologist, Dr. Roach Assessment & Plan (10/24/2024 4:54 PM EDT): Assessment: reported Vertigo CT brain 10/07-negative Plan: stop Flomax 7/7 monitor vitals Vestibular PT to assess patient continue to monitor discussed with neurology, awaiting MRI brain without contrast Assessment & Plan (10/23/2024 11:04 AM EDT): Assessment: reported Vertigo CT brain 10/07-negative Plan: stop Flomax 7/7 monitor vitals Vestibular PT to assess patient continue to monitor discussed with neurology, awaiting MRI brain without contrast Assessment & Plan (10/22/2024 4:37 PM EDT): Assessment: reported Vertigo CT brain 10/07-negative Plan: stop Flomax 7/7 monitor vitals Vestibular PT to assess patient continue to monitor discussed with neurology and will order MRI brain without contrast Assessment & Plan (10/21/2024 4:23 PM EDT): Assessment: reported Vertigo CT brain 10/07-negative Plan: stop Flomax monitor vitals Vestibular PT to assess patient continue to monitor VRE (vancomycin-resistant Enterococci) infection 10/20/2024 Assessment & Plan (10/29/2024 12:48 PM EDT): See assessment and plan under liver transplant recipient Assessment & Plan (10/28/2024 2:32 PM EDT): See assessment and plan under liver transplant recipient Assessment & Plan (10/27/2024 10:29 AM EDT): See assessment and plan under liver transplant recipient Assessment & Plan (10/26/2024 11:03 AM EDT): See assessment and plan under liver transplant recipient Assessment & Plan (10/25/2024 1:55 PM EDT): See assessment and plan under liver transplant recipient Assessment & Plan (10/24/2024 4:54 PM EDT): Assessment: Abdominal fluid 7/3-positive for VRE Plan: ID on consult continue Daptomycin Assessment & Plan (10/23/2024 11:04 AM EDT): Assessment: Abdominal fluid 7/3-positive for VRE Plan: ID on consult continue Daptomycin Assessment & Plan (10/22/2024 4:39 PM EDT): Assessment: Abdominal fluid 7/3-positive for VRE Plan: ID on consult continue Daptomycin Assessment & Plan (10/21/2024 4:21 PM EDT): Assessment: Abdominal fluid 7/3-positive for VRE Plan: ID on consult continue Daptomycin Intra-abdominal infection after surgical procedu re 10/20/2024 PERLITA (acute kidney injury) 10/14/2024 Cytomegalovirus (CMV) viremia 10/09/2024 Assessment & Plan (10/29/2024 12:50 PM EDT): Assessment: CMV IgG: Donor Positive/ Recipient Negative CMV DNA 10/09- 385 CMV DNA /-452 CMV DNA 7/7- 293 CMV DNA 10/27 - Plan: Continue Valcyte 900 mg BID (started 10/09) Hold acyclovir while on Valcyte Follow CMV levels qMon Assessment & Plan (10/28/2024 2:32 PM EDT): Assessment: CMV IgG: Donor Positive/ Recipient Negative CMV DNA 10/09- 385 CMV DNA 6/30-452 CMV DNA 7/7- 293 Plan: Continue Valcyte 900 mg BID (started 10/09) Hold acyclovir while on Valcyte Follow CMV levels qMon Assessment & Plan (10/27/2024 10:29 AM EDT): Assessment: CMV IgG: Donor Positive/ Recipient Negative CMV DNA 10/09- 385 CMV DNA 6/30-452 CMV DNA 7/7- 293 Plan: Continue Valcyte 900 mg BID (started 10/09) Hold acyclovir while on Valcyte Follow CMV levels qMon Assessment & Plan (10/26/2024 11:03 AM EDT): Assessment: CMV IgG: Donor Positive/ Recipient Negative CMV DNA 6/25- 385 CMV DNA 6/30-452 CMV DNA 7/7- 293 Plan: Continue Valcyte 900mg BID (started 10/09) Hold acyclovir while on Valcyte Follow CMV levels qMon Assessment & Plan (10/25/2024 1:54 PM EDT): Assessment: CMV IgG: Donor Positive/ Recipient Negative CMV DNA 6/25- 385 CMV DNA 6/30-452 CMV DNA 7/7- 293 Plan: Continue Valcyte 900mg BID (started 10/09) Hold acyclovir while on Valcyte Follow CMV levels qMon Assessment & Plan (10/24/2024 4:53 PM EDT): Assessment: CMV IgG: Donor Positive/ Recipient Negative CMV DNA 6/25- 385 CMV DNA 6/30-452 CMV DNA 7/7- 293 Plan: - Valcyte 900mg BID (started 10/09) - hold acyclovir while on Valcyte - follow CMV levels qMon Assessment & Plan (10/23/2024 11:06 AM EDT): Assessment: CMV IgG: Donor Positive/ Recipient Negative CMV DNA 6/25- 385 CMV DNA 6/30-452 CMV DNA 7/7- 293 Plan: - Valcyte 900mg BID (started 10/09) - hold acyclovir while on Valcyte - follow CMV levels qMon Assessment & Plan (10/22/2024 4:36 PM EDT): Assessment: CMV IgG: Donor Positive/ Recipient Negative CMV DNA 6/25- 385 CMV DNA 6/30-452 CMV DNA 7/7- 293 Plan: - Valcyte 900mg BID (started 10/09) - hold acyclovir while on Valcyte - follow CMV levels qMon Assessment & Plan (10/21/2024 4:17 PM EDT): Assessment: CMV IgG: Donor Positive/ Recipient Negative CMV DNA 6/25- 385 CMV DNA 10/14-452 CMV DNA 7/7- 293 Plan: - Valcyte 900mg BID (started 10/09) - hold acyclovir while on Valcyte - follow CMV levels qMon Assessment & Plan (10/20/2024 11:04 AM EDT): Assessment: CMV IgG: Donor Positive/ Recipient Negative CMV DNA 10/09- 385 CMV DNA 45 Plan: - Valcyte 900mg BID (started 10/09) - hold acyclovir while on Valcyte - follow CMV levels qMon Assessment & Plan (10/19/2024 12:50 PM EDT): Assessment: CMV IgG: Donor Positive/ Recipient Negative CMV DNA 10/09- 385 CMV DNA 10/14-45 Plan: - Valcyte 900mg BID (started 10/09) - hold acyclovir while on Valcyte - follow CMV levels qMon Assessment & Plan (10/18/2024 11:03 AM EDT): Assessment: CMV IgG: Donor Positive/ Recipient Negative CMV DNA 10/09- 385 CMV DNA 10/14-452 Plan: - Valcyte 900mg BID (started 10/09) - hold acyclovir while on Valcyte - follow CMV levels qMon Assessment & Plan (10/17/2024 11:43 AM EDT): Assessment: CMV IgG: Donor Positive/ Recipient Negative CMV DNA 10/09- 385 CMV DNA 45 Plan: - Valcyte 900mg BID (started 10/09) - hold acyclovir while on Valcyte - follow CMV levels qMon Assessment & Plan (10/16/2024 12:36 PM EDT): Assessment: CMV IgG: Donor Positive/ Recipient Negative CMV DNA 10/09- 385 CMV DNA 10/14-452 Plan: - Valcyte 900mg BID (started 10/09) - hold acyclovir while on Valcyte - follow CMV levels qMon Assessment & Plan (10/15/2024 4:09 PM EDT): Assessment: CMV IgG: Donor Positive/ Recipient Negative CMV DNA CMV DNA Plan: - Valcyte 900mg BID (started 10/09) - hold acyclovir while on Valcyte - follow CMV levels qMon Assessment & Plan (10/14/2024 4:43 PM EDT): Assessment: CMV IgG: Donor Positive/ Recipient Negative CMV DNA Plan: - Valcyte 450mg BID (started 10/09) - hold acyclovir while on Valcyte - follow CMV levels qMon Assessment & Plan (10/13/2024 8:39 AM EDT): Assessment: CMV IgG: Donor Positive/ Recipient Negative CMV DNA Plan: - Valcyte 450mg BID (started 10/09) - hold acyclovir while on Valcyte - follow CMV levels qMon Assessment & Plan (10/12/2024 2:00 PM EDT): Assessment: CMV IgG: Donor Positive/ Recipient Negative 04-29-24 CMV DNA Plan: - Valcyte 450mg BID (started 10/09) - hold acyclovir while on Valcyte - follow CMV levels qMon Assessment & Plan (10/11/2024 3:37 PM EDT): Assessment: CMV IgG: Donor Positive/ Recipient Negative 04-29-24 CMV DNA Plan: - Valcyte 450mg BID (started 10/09) - hold acyclovir while on Valcyte - follow CMV levels qMon Assessment & Plan (10/10/2024 5:01 PM EDT): Assessment: CMV DNA Plan: stop acyclovir start valcyte Assessment & Plan (10/09/2024 4:53 PM EDT): Assessment: CMV DNA Plan: stop acyclovir start valcyte Anemia due to multiple mechanisms 10/08/2024 Assessment & Plan (10/29/2024 12:50 PM EDT): Assessment: No signs of bleeding Plan: Monitor CBC daily Transfuse as needed Monitor for bleeding Assessment & Plan (10/28/2024 2:32 PM EDT): Assessment: No signs of bleeding Plan: Monitor CBC daily Transfuse as needed Monitor for bleeding Assessment & Plan (10/27/2024 10:29 AM EDT): Assessment: Hgb 8.2 this AM, improved after 1 unit PRBC yesterday for Hgb 7.1 No signs of bleeding Plan: Monitor CBC daily Transfuse as needed Monitor for bleeding Assessment & Plan (10/26/2024 10:56 AM EDT): Assessment: Hgb 7.1 No signs of bleeding Plan: 1 unit PRBC today Monitor CBC daily Transfuse as needed Monitor for bleeding Assessment & Plan (10/25/2024 1:52 PM EDT): Assessment: Hgb 7.4 No signs of bleeding Plan: Monitor CBC daily Transfuse as needed Monitor for bleeding Assessment & Plan (10/24/2024 4:53 PM EDT): Assessment: hgb 8.7 no signs of bleeding Plan: monitor CBC daily transfuse as needed monitor for bleeding Assessment & Plan (10/23/2024 11:07 AM EDT): Assessment: hgb 8.5 no signs of bleeding Plan: monitor CBC daily transfuse as needed monitor for bleeding Assessment & Plan (10/22/2024 4:35 PM EDT): Assessment: hgb 7.6 no signs of bleeding Plan: monitor CBC daily transfuse as needed monitor for bleeding Assessment & Plan (10/21/2024 4:16 PM EDT): Assessment: hgb 7.6 no signs of bleeding Plan: monitor CBC daily transfuse as needed monitor for bleeding Assessment & Plan (10/20/2024 11:04 AM EDT): Assessment: hgb 6.9 no signs of bleeding Plan: 1 unit of PRBC today monitor CBC daily transfuse as needed monitor for bleeding Assessment & Plan (10/19/2024 12:50 PM EDT): Assessment: hgb 6.8 -> repeat 7.2 no signs of bleeding Plan: monitor CBC daily transfuse as needed monitor for bleeding Assessment & Plan (10/18/2024 11:03 AM EDT): Assessment: hgb 8.5 no signs of bleeding Plan: monitor CBC daily transfuse as needed monitor for bleeding Assessment & Plan (10/17/2024 11:44 AM EDT): Assessment: hgb 7.2 no signs of bleeding Plan: monitor CBC daily transfuse as needed monitor for bleeding Assessment & Plan (10/16/2024 12:36 PM EDT): Assessment: hgb 7.8 no signs of bleeding Plan: monitor CBC daily transfuse as needed monitor for bleeding Assessment & Plan (10/15/2024 3:48 PM EDT): Assessment: hgb 7.9 no signs of bleeding Plan: monitor CBC daily transfuse as needed monitor for bleeding Blood transfusion was not given yesterday Assessment & Plan (10/14/2024 4:43 PM EDT): Assessment: hgb 7.0 no signs of bleeding Plan: monitor CBC daily transfuse as needed monitor for bleeding PRBC 1 unit today. Lasix 20mg IV for one time dose after the infusion Assessment & Plan (10/13/2024 8:39 AM EDT): Assessment: hgb >7 no signs of bleeding Plan: monitor CBC daily transfuse as needed monitor for bleeding Assessment & Plan (10/12/2024 2:00 PM EDT): Assessment: hgb >7 no signs of bleeding Plan: monitor CBC daily transfuse as needed monitor for bleeding Assessment & Plan (10/11/2024 3:33 PM EDT): Assessment: hgb >7 no signs of bleeding Plan: monitor CBC daily transfuse as needed monitor for bleeding Assessment & Plan (10/10/2024 5:01 PM EDT): Assessment: hgb 7.5 no signs of bleeding Plan: monitor CBC daily transfuse as needed monitor for bleeding Assessment & Plan (10/09/2024 4:50 PM EDT): Assessment: hgb 7.3 no signs of bleeding Plan: monitor CBC daily transfuse as needed monitor for bleeding Assessment & Plan (10/08/2024 4:44 PM EDT): Assessment: hgb 7.3 no signs of bleeding Plan: monitor CBC daily transfuse as needed monitor for bleeding Shortness of breath 10/08/2024 Assessment & Plan (10/29/2024 12:49 PM EDT): Assessment: CT chest 10/08: Moderate-sized loculated right hydropneumothorax. Interval increase in volume of a low-attenuation, medium-sized left pleural effusion ECHO 10/17: - The left ventricle is normal in size. Left ventricular systolic function is normal. EF = 55 5% (visual est.) - Aortic sclerosis. - Exam was compared with the prior CC echocardiographic exam performed on 09/21/2024. Right pleural effusion seen. RVP (+) parainfluenza 3 S/p left thoracentesis 10/14: 320 cc drained, culture NGTD On room air Plan: Continue to monitor respiratory status Duoneb PRN Tessalon perles PRN Assessment & Plan (10/28/2024 2:32 PM EDT): Assessment: CT chest 10/08: Moderate-sized loculated right hydropneumothorax. Interval increase in volume of a low-attenuation, medium-sized left pleural effusion ECHO 10/17: - The left ventricle is normal in size. Left ventricular systolic function is normal. EF = 55 5% (visual est.) - Aortic sclerosis. - Exam was compared with the prior CC echocardiographic exam performed on 09/21/2024. Right pleural effusion seen. RVP (+) parainfluenza 3 S/p left thoracentesis 30: 320 cc drained, culture NGTD On room air Plan: Continue to monitor respiratory status Duoneb PRN Tessalon perles PRN Assessment & Plan (10/27/2024 10:29 AM EDT): Assessment: CT chest 10/08: Moderate-sized loculated right hydropneumothorax. Interval increase in volume of a low-attenuation, medium-sized left pleural effusion ECHO 7/3: - The left ventricle is normal in size. Left ventricular systolic function is normal. EF = 55 5% (visual est.) - Aortic sclerosis. - Exam was compared with the prior CC echocardiographic exam performed on 09/21/2024. Right pleural effusion seen. RVP (+) parainfluenza 3 S/p left thoracentesis 10/14: 320 cc drained, culture NGTD On room air Plan: Continue to monitor respiratory status Duoneb PRN Tessalon perles PRN Assessment & Plan (10/26/2024 10:57 AM EDT): Assessment: CT chest 10/08: Moderate-sized loculated right hydropneumothorax. Interval increase in volume of a low-attenuation, medium-sized left pleural effusion ECHO 7/3: - The left ventricle is normal in size. Left ventricular systolic function is normal. EF = 55 5% (visual est.) - Aortic sclerosis. - Exam was compared with the prior CC echocardiographic exam performed on 09/21/2024. Right pleural effusion seen. RVP (+) parainfluenza 3 S/p left thoracentesis 30: 320 cc drained, culture NGTD On room air Plan: Continue to monitor respiratory status Duoneb PRN Tessalon perles PRN Assessment & Plan (10/25/2024 1:55 PM EDT): Assessment: CT chest 10/08: Moderate-sized loculated right hydropneumothorax. Interval increase in volume of a low-attenuation, medium-sized left pleural effusion ECHO 7/3: - The left ventricle is normal in size. Left ventricular systolic function is normal. EF = 55 5% (visual est.) - Aortic sclerosis. - Exam was compared with the prior CC echocardiographic exam performed on 09/21/2024. Right pleural effusion seen. RVP (+) parainfluenza 3 S/p left thoracentesis 10/14: 320 cc drained, culture NGTD On room air Plan: Continue to monitor respiratory status Duoneb PRN Tessalon perles PRN Assessment & Plan (10/24/2024 4:54 PM EDT): Assessment: CT chest 10/0855-Efswcpzw-kcxix loculated right hydropneumothorax; the pneumothorax .Interval increase in volume of a low-attenuation, medium-sized left pleural effusion (+)parainfluenza thoracentesis 30- drained 320cc cultures-NTD cytology negative Plan: continue to monitor respiratory status duoneb prn follow cultures Diuresis as able Assessment & Plan (10/23/2024 11:04 AM EDT): Assessment: CT chest 10-Radngckp-fkgtq loculated right hydropneumothorax; the pneumothorax .Interval increase in volume of a low-attenuation, medium-sized left pleural effusion (+)parainfluenza thoracentesis 6/30- drained 320cc cultures-NTD cytology negative Plan: continue to monitor respiratory status duoneb prn follow cultures Diuresis as able Assessment & Plan (10/22/2024 4:37 PM EDT): Assessment: CT chest 88-Zmhqmycf-kgzph loculated right hydropneumothorax; the pneumothorax .Interval increase in volume of a low-attenuation, medium-sized left pleural effusion (+)parainfluenza thoracentesis 6/30- drained 320cc cultures-NTD cytology negative Plan: continue to monitor respiratory status duoneb prn follow cultures Diuresis as able Assessment & Plan (10/21/2024 4:21 PM EDT): Assessment: CT chest 6/15-Drhlhzzj-dxkoj loculated right hydropneumothorax; the pneumothorax .Interval increase in volume of a low-attenuation, medium-sized left pleural effusion (+)parainfluenza thoracentesis 6/30- drained 320cc cultures-NTD cytology negative Plan: continue to monitor respiratory status duoneb prn follow cultures Diuresis as able Assessment & Plan (10/20/2024 11:00 AM EDT): Assessment: CT chest 6/93-Dqikocvs-xgzcp loculated right hydropneumothorax; the pneumothorax .Interval increase in volume of a low-attenuation, medium-sized left pleural effusion (+)parainfluenza thoracentesis 6/30- drained 320cc Plan: continue to monitor respiratory status duoneb prn followup cultures from thoracentesis and cytology pending Diuresis as able Assessment & Plan (10/19/2024 12:47 PM EDT): Assessment: CT chest 604-Upmeqzex-ehnpf loculated right hydropneumothorax; the pneumothorax .Interval increase in volume of a low-attenuation, medium-sized left pleural effusion (+)parainfluenza thoracentesis 6/30- drained 320cc Plan: continue to monitor respiratory status duoneb prn continue zosyn for now followup cultures from thoracentesis and cytology pending Diuresis as able Assessment & Plan (10/18/2024 11:01 AM EDT): Assessment: CT chest 652-Hflkuwuo-rvxma loculated right hydropneumothorax; the pneumothorax .Interval increase in volume of a low-attenuation, medium-sized left pleural effusion (+)parainfluenza thoracentesis 6/30- drained 320cc Plan: continue to monitor respiratory status duoneb prn continue zosyn for now followup cultures from thoracentesis and cytology pending Diuresis as able Assessment & Plan (10/17/2024 11:16 AM EDT): Assessment: CT chest 6/39-Umoqvnpc-itahu loculated right hydropneumothorax; the pneumothorax .Interval increase in volume of a low-attenuation, medium-sized left pleural effusion (+)parainfluenza thoracentesis 6/30- drained 320cc Plan: continue to monitor respiratory status duoneb prn continue zosyn for now followup cultures from thoracentesis and cytology pending Diuresis as able Assessment & Plan (10/16/2024 1:20 PM EDT): Assessment: CT chest 10-Avpdjcvg-vgcms loculated right hydropneumothorax; the pneumothorax .Interval increase in volume of a low-attenuation, medium-sized left pleural effusion (+)parainfluenza thoracentesis 6/30- drained 320cc Plan: continue to monitor respiratory status duoneb prn continue zosyn for now followup cultures from thoracentesis and cytology pending Diuresis as able Assessment & Plan (10/15/2024 4:12 PM EDT): Assessment: CT chest 615-Opuivgvq-eedwk loculated right hydropneumothorax; the pneumothorax .Interval increase in volume of a low-attenuation, medium-sized left pleural effusion (+)parainfluenza thoracentesis 6/30- drained 320cc Plan: continue to monitor respiratory status duoneb prn continue zosyn for now followup cultures from thoracentesis and cytology pending Diuresis as able Assessment & Plan (10/14/2024 4:45 PM EDT): Assessment: CT chest 10-Umxfqjng-fzccq loculated right hydropneumothorax; the pneumothorax .Interval increase in volume of a low-attenuation, medium-sized left pleural effusion (+)parainfluenza Plan: continue to monitor respiratory status duoneb prn continue zosyn for now Diuresis as able thoracentesis today Assessment & Plan (10/13/2024 8:43 AM EDT): Assessment: CT chest 10/0838-Swtbrruj-aejby loculated right hydropneumothorax; the pneumothorax .Interval increase in volume of a low-attenuation, medium-sized left pleural effusion (+)parainfluenza Plan: continue to monitor respiratory status duoneb prn continue zosyn, plan for 5 day course Diuresis as able Assessment & Plan (10/12/2024 2:02 PM EDT): Assessment: CT chest 6/11-Njcpjvob-ngbfq loculated right hydropneumothorax; the pneumothorax .Interval increase in volume of a low-attenuation, medium-sized left pleural effusion (+)parainfluenza Plan: continue to monitor respiratory status duoneb prn continue zosyn, plan for 5 day course Diuresis as able Assessment & Plan (10/11/2024 3:40 PM EDT): Assessment: CT chest 688-Kxljpbyf-eqmvc loculated right hydropneumothorax; the pneumothorax .Interval increase in volume of a low-attenuation, medium-sized left pleural effusion (+)parainfluenza Plan: continue to monitor respiratory status duoneb prn continue zosyn for now check sputum culture Diuresis as able Assessment & Plan (10/10/2024 5:02 PM EDT): Assessment: CT chest 678-Idlxubgw-kowib loculated right hydropneumothorax; the pneumothorax .Interval increase in volume of a low-attenuation, medium-sized left pleural effusion Plan: continue to monitor respiratory status duoneb prn RVP positive with parainfluenza will consult thoracentesis team to assess for pleural effusion drainage continue zosyn for now check sputum culture Assessment & Plan (10/09/2024 4:53 PM EDT): Assessment: CT chest 10/0899-Hwnfdbba-ylnpd loculated right hydropneumothorax; the pneumothorax .Interval increase in volume of a low-attenuation, medium-sized left pleural effusion Plan: continue to monitor respiratory status albuterol prn RVP positive with parainfluenza will consult thoracentesis team to assess for pleural effusion drainage continue zosyn for now check sputum culture Assessment & Plan (10/08/2024 4:55 PM EDT): Assessment: CT chest 6/85-Qyiojoph-fmpxs loculated right hydropneumothorax; the pneumothorax .Interval increase in volume of a low-attenuation, medium-sized left pleural effusion Plan: continue to monitor respiratory status albuterol prn RVP will review CT chest results with Dr. Tiwari Fluid overload 10/07/2024 Assessment & Plan (10/29/2024 12:50 PM EDT): Assessment: Edema improved overall Plan: Continue to monitor Continue Lasix 20 mg PO daily Weigh daily Assessment & Plan (10/28/2024 2:31 PM EDT): Assessment: Edema improved overall Plan: Continue to monitor Continue Lasix 20 mg PO daily Weigh daily Assessment & Plan (10/27/2024 10:29 AM EDT): Assessment: Edema improved overall Plan: Continue to monitor Start Lasix 20 mg PO daily Weigh daily Assessment & Plan (10/26/2024 10:57 AM EDT): Assessment: Edema improved overall Plan: Continue to monitor Lasix 20 mg IV x 1 dose today following PRBC transfusion Weigh daily Assessment & Plan (10/25/2024 1:51 PM EDT): Assessment: Edema improved Plan: Continue to monitor Weigh daily Assessment & Plan (10/24/2024 4:53 PM EDT): Assessment: edema improved Plan: -continue to monitor weigh daily Assessment & Plan (10/23/2024 11:06 AM EDT): Assessment: edema noted Plan: -continue to monitor weigh daily Assessment & Plan (10/22/2024 4:36 PM EDT): Assessment: edema noted Plan: -continue to monitor weigh daily Assessment & Plan (10/21/2024 4:17 PM EDT): Assessment: edema noted Plan: -continue to monitor weigh daily Assessment & Plan (10/20/2024 11:03 AM EDT): Assessment: edema noted Plan: -continue to monitor weigh daily Assessment & Plan (10/19/2024 12:50 PM EDT): Assessment: edema noted Plan: -continue to monitor weigh daily Assessment & Plan (10/18/2024 11:02 AM EDT): Assessment: edema noted Plan: -continue to monitor weigh daily Assessment & Plan (10/17/2024 11:43 AM EDT): Assessment: edema noted Plan: -continue to monitor weigh daily Assessment & Plan (10/16/2024 12:37 PM EDT): Assessment: edema noted Plan: -continue to monitor weigh daily Assessment & Plan (10/15/2024 4:09 PM EDT): Assessment: edema noted Plan: -continue to monitor weigh daily Assessment & Plan (10/14/2024 4:44 PM EDT): Assessment: edema noted Plan: -continue to monitor weigh daily Assessment & Plan (10/13/2024 8:40 AM EDT): Assessment: edema noted Plan: - Lasix IV 20mg today weigh daily Assessment & Plan (10/12/2024 2:01 PM EDT): Assessment: edema noted Plan: - Lasix IV 20mg today weigh daily Assessment & Plan (10/11/2024 3:38 PM EDT): Assessment: edema noted Plan: - Lasix IV 20mg today weigh daily Assessment & Plan (10/10/2024 5:01 PM EDT): Assessment: edema noted Plan: lasix 20mg IV for one time dose and albumin 25gm IV for one time dose weigh daily Assessment & Plan (10/09/2024 4:50 PM EDT): Assessment: edema noted Plan: hold off on lasix today weigh daily Assessment & Plan (10/08/2024 4:46 PM EDT): Assessment: edema noted Plan: stop oral lasix give lasix 20mg IV for one time dose albumin 25gm IV for one time dose weigh daily Current use of steroid medication 09/24/2024 Physical deconditioning 09/24/2024 Weakness 09/24/2024 Impaired functional mobility, balance, gait, and endurance 09/24/2024 Ileus 09/22/2024 Assessment & Plan (09/28/2024 4:22 PM EDT): Nausea and vomiting (6/8), abdomen distended - pt refused NG placement N/V improved Plan: - advanced diet to GI soft cautiously (09/25) Assessment & Plan (09/27/2024 2:27 PM EDT): Nausea and vomiting (6/8), abdomen distended - pt refused NG placement N/V improved Plan: - advanced diet to GI soft cautiously (09/25) Assessment & Plan (09/26/2024 1:06 PM EDT): Nausea and vomiting (6/8), abdomen distended - pt refused NG placement N/V improved Plan: - advanced diet to GI soft cautiously (09/25) Assessment & Plan (09/25/2024 12:55 PM EDT): Nausea and vomiting (6/8), abdomen distended - pt refused NG placement N/V improved Plan: - advance diet to GI soft cautiously Assessment & Plan (09/24/2024 11:45 AM EDT): Nausea and vomiting (6/8), abdomen distended - pt refused NG placement N/V improved Plan: - advance diet to FLD Assessment & Plan (09/23/2024 11:48 AM EDT): Nausea and vomiting (6/8), abdomen distended - pt refused NG placement, made NPO Plan: - cautiously advance diet, start w CLD Assessment & Plan (09/22/2024 12:42 PM EDT): Nausea and vomiting today (6/8) Abdomen distended Plan: - KUB - NPO - if continues to have vomiting, will place NG. Insulin dose changed 09/20/2024 Steroid-induced hyperglycemia 09/18/2024 History of prediabetes 09/18/2024 Metabolic acidosis 09/14/2024 Acute renal failure 09/14/2024 Immunosuppression 09/13/2024 Assessment & Plan (10/29/2024 12:49 PM EDT): Assessment: Crossmatch negative Simulect induction Prograf 4 mg BID FK 5.7 Plan: Continue current Tacrolimus dose Daily FK trough Assessment & Plan (10/28/2024 2:31 PM EDT): Assessment: Crossmatch negative Simulect induction Prograf 3 mg BID (increased 7/10 from 2 mg BID) FK 2.6 Plan: Increase FK to 4 mg BID Daily FK trough Assessment & Plan (10/27/2024 10:29 AM EDT): Assessment: Crossmatch negative Simulect induction Prograf 3 mg BID (increased 7/10 from 2 mg BID) FK pending Plan: F/u FK level Daily FK trough Assessment & Plan (10/26/2024 10:56 AM EDT): Assessment: Crossmatch negative Simulect induction Prograf 3 mg BID (increased 7/10 from 2 mg BID) FK 8.8 Plan: Continue Prograf 3 mg BID Daily FK trough Assessment & Plan (10/25/2024 1:51 PM EDT): Assessment: Crossmatch negative Simulect induction Prograf 3 mg BID (increased 7/10 from 2 mg BID) FK 6.9 Plan: Continue Prograf 3 mg BID Daily FK trough Assessment & Plan (10/24/2024 4:54 PM EDT): Assessment: crossmatch negative simulect induction Prograf 2 mg BID prograf level 4.8 Plan: increase prograf to 3mg BID Daily FK trough Assessment & Plan (10/23/2024 11:06 AM EDT): Assessment: crossmatch negative simulect induction Prograf 2 mg BID prograf level 6.1 Plan: Continue current Tacrolimus dose Daily FK trough Assessment & Plan (10/22/2024 4:36 PM EDT): Assessment: crossmatch negative simulect induction Prograf 3mg BID prograf level 10.5 Plan: decrease prograf to 2mg BID Daily FK trough Assessment & Plan (10/21/2024 4:18 PM EDT): Assessment: crossmatch negative simulect induction Prograf 4mg BID prograf level 9.4 Plan: decrease prograf to 3mg BID Daily FK trough Assessment & Plan (10/20/2024 11:03 AM EDT): Assessment: crossmatch negative simulect induction Prograf 3mg BID prograf level pending Plan: Will discuss Tacrolimus dose with staff when level is available Daily FK trough Assessment & Plan (10/19/2024 12:50 PM EDT): Assessment: crossmatch negative simulect induction Prograf 3mg BID prograf level pending Plan: Will discuss Tacrolimus dose with staff when level is available Daily FK trough Assessment & Plan (10/18/2024 11:02 AM EDT): Assessment: crossmatch negative simulect induction Prograf 4mg BID prograf level 11.1 Plan: Will discuss Tacrolimus dose with staff Daily FK trough Assessment & Plan (10/17/2024 11:38 AM EDT): Assessment: crossmatch negative simulect induction Prograf 5mg BID (increased from 4.5mg 10/10) prograf level 9.5 Plan: Continue current dose of tacrolimus Daily FK trough Assessment & Plan (10/16/2024 12:35 PM EDT): Assessment: crossmatch negative simulect induction Prograf 5mg BID (increased from 4.5mg 10/10) prograf level 8.5 Plan: Continue current dose of tacrolimus Daily FK trough Assessment & Plan (10/15/2024 4:10 PM EDT): Assessment: crossmatch negative simulect induction Prograf 5mg BID (increased from 4.5mg 10/10) prograf level was not drawn today Plan: Continue current dose of tacrolimus Daily FK trough Assessment & Plan (10/14/2024 4:44 PM EDT): Assessment: crossmatch negative simulect induction Prograf 5mg BID (increased from 4.5mg 10/10) prograf level is 7.1 Plan: Continue FK dosing Daily FK trough Assessment & Plan (10/13/2024 12:34 PM EDT): Assessment: crossmatch negative simulect induction Prograf 5mg BID (increased from 4.5mg 10/10) prograf level is 6.5 Plan: Continue FK dosing Daily FK trough Assessment & Plan (10/12/2024 2:00 PM EDT): Assessment: crossmatch negative simulect induction Prograf 5mg BID (increased from 4.5mg 10/10) prograf level is 6.4 Plan: Continue FK dosing Daily FK trough Assessment & Plan (10/11/2024 3:32 PM EDT): Assessment: crossmatch negative simulect induction Prograf 5mg BID (increased from 4.5mg 10/10) prograf level is 5.6 Plan: Continue FK dosing Daily FK trough Assessment & Plan (10/10/2024 5:02 PM EDT): Assessment: crossmatch negative simulect induction Prograf 4.5mg BID prograf level is 5.8 Plan: increase prograf 5mg BID monitor tacrolimus levels daily before the morning dose of tacrolimus Assessment & Plan (10/09/2024 4:51 PM EDT): Assessment: crossmatch negative simulect induction Prograf 4mg BID prograf level is 6.4 Plan: increase prograf 4.5mg BID monitor tacrolimus levels daily before the morning dose of tacrolimus Assessment & Plan (10/08/2024 4:50 PM EDT): Assessment: crossmatch negative simulect induction Prograf 4mg BID prograf level is not a trough level- 10.4 Plan: no changes in prograf dose monitor tacrolimus levels daily before the morning dose of tacrolimus Assessment & Plan (09/28/2024 4:22 PM EDT): Crossmatch T and B cell weak positive Simulect induction 09/09, 09/13 Tacrolimus 4mg BID (decreased from 5mg on 09/26 after increase from 4mg on 09/24) Cellcept 1,000 mg BID Steroid taper FK level 8.2 Plan: - continue current prograf dose - Continue Cellcept and steroid taper - FK level daily Assessment & Plan (09/27/2024 2:21 PM EDT): Crossmatch T and B cell weak positive Simulect induction 09/09, 09/13 Tacrolimus 4mg BID (decreased from 5mg on 09/26 after increase from 4mg on 09/24) Cellcept 1,000 mg BID Steroid taper FK level 9.0 Plan: - Will discuss Tacrolimus dose with staff - Continue Cellcept and steroid taper - FK level daily Assessment & Plan (09/26/2024 1:04 PM EDT): Crossmatch T and B cell weak positive Simulect induction 09/09, 09/13 Tacrolimus 5mg BID (increased from 4mg on 09/24) Cellcept 1,000 mg BID Steroid taper FK level 11.6 Plan: - Will discuss Tacrolimus dose with staff when level is available - Continue Cellcept and steroid taper - FK level daily Assessment & Plan (09/25/2024 12:43 PM EDT): Crossmatch T and B cell weak positive Simulect induction 09/09, 09/13 Tacrolimus 5mg BID (increased from 4mg on 09/24) Cellcept 1,000 mg BID Steroid taper FK level 8.0 Plan: - Will discuss Tacrolimus dose with staff when level is available - Continue Cellcept and steroid taper - FK level daily Assessment & Plan (09/24/2024 11:45 AM EDT): Crossmatch T and B cell weak positive Simulect induction 09/09, 09/13 Tacrolimus 4 mg BID (increased 6/7) Cellcept 1,000 mg BID Steroid taper FK level pending Plan: - Will discuss Tacrolimus dose with staff when level is available - Continue Cellcept and steroid taper - FK level daily Assessment & Plan (09/23/2024 11:42 AM EDT): Crossmatch T and B cell weak positive Simulect induction 09/09, 09/13 Tacrolimus 4 mg BID (increased 6/7) Cellcept 1,000 mg BID Steroid taper FK level 5.6 Plan: - Will discuss Tacrolimus dose with staff - Continue Cellcept and steroid taper - FK level daily Assessment & Plan (09/22/2024 12:41 PM EDT): Crossmatch T and B cell weak positive Simulect induction 09/09, 09/13 Tacrolimus 4 mg BID (increased yesterday) Cellcept 1,000 mg BID Steroid taper FK level 6.8 Plan: - Will discuss Tacrolimus dose with staff - Continue Cellcept and steroid taper - FK level daily Assessment & Plan (09/21/2024 2:21 PM EDT): Crossmatch T and B cell weak positive Simulect induction 09/09, 09/13 Tacrolimus 3 mg BID (increased yesterday) Cellcept 1,000 mg BID Steroid taper FK level 5.3 Plan: - Give 1 mg of Tacrolimus now and increased scheduled dose to 4 mg BID - Continue Cellcept and steroid taper - FK level daily Assessment & Plan (09/20/2024 6:15 PM EDT): Crossmatch T and B cell weak positive Simulect induction 09/09, 09/13 Tacrolimus 3 mg BID (increased yesterday) Cellcept 1,000 mg BID Steroid taper FK level 5.9 Plan: - continue current dose of tacro - Continue Cellcept and steroid taper - FK level daily Assessment & Plan (09/19/2024 11:59 AM EDT): Crossmatch T and B cell weak positive Simulect induction 09/09, 09/13 Tacrolimus 2mg BID (increased from 1.5mg on 09/16) Cellcept 1,000 mg BID Steroid taper FK level pending Plan: - f/u FK level and adjust as needed - Continue Cellcept and steroid taper - FK level daily Assessment & Plan (09/18/2024 10:34 AM EDT): Crossmatch T and B cell weak positive Simulect induction 09/09, 09/13 Tacrolimus 2mg BID (increased from 1.5mg on 09/16) Cellcept 1,000 mg BID Steroid taper FK level pending Plan: - f/u FK level and adjust as needed - Continue Cellcept and steroid taper - FK level daily Assessment & Plan (09/17/2024 1:14 PM EDT): Crossmatch T and B cell weak positive Simulect induction 09/09, 09/13 Tacrolimus 2mg BID (increased from 1.5mg on 09/16) Cellcept 1,000 mg BID Steroid taper FK level 6.3 Plan: - Cont FK dosing - Continue Cellcept and steroid taper - FK level daily Assessment & Plan (09/16/2024 3:18 PM EDT): Crossmatch T and B cell weak positive Simulect induction 09/09, 09/13 Tacrolimus 1.5mg BID Cellcept 1,000 mg BID Steroid taper FK level 4.9 Plan: - increase FK 2 mg BID - Continue Cellcept and steroid taper - FK level daily Assessment & Plan (09/13/2024 2:10 PM EDT): Crossmatch T and B cell weak positive Simulect induction 09/09, 09/13 Tacrolimus 2 mg BID (increased 09/12 PM) Cellcept 1,000 mg BID Steroid taper FK level 9.3 Plan: - 2nd dose of Simulect today - Continue Tacrolimus 2 mg BID - Continue Cellcept and steroid taper - FK level daily Complication of transplanted liver 09/11/2024 Electrolyte and fluid disorder 09/11/2024 Post-op pain 09/10/2024 Assessment & Plan (09/28/2024 4:23 PM EDT): Post op pain appears well controlled Chronic low back pain Plan: - wean narcotics as able - schedule Robaxin Assessment & Plan (09/27/2024 2:27 PM EDT): Post op pain appears well controlled Chronic low back pain Plan: - wean narcotics as able - schedule Robaxin Assessment & Plan (09/26/2024 1:07 PM EDT): Post op pain appears well controlled Chronic low back pain Plan: - wean narcotics as able - schedule Robaxin Assessment & Plan (09/25/2024 12:56 PM EDT): Post op pain appears well controlled Chronic low back pain Plan: - wean narcotics as able - schedule Robaxin Assessment & Plan (09/24/2024 11:44 AM EDT): Post op pain appears well controlled Chronic low back pain Plan: - wean narcotics as able - schedule Robaxin Assessment & Plan (09/23/2024 11:48 AM EDT): Post op pain appears well controlled Plan: - wean narcotics as able Assessment & Plan (09/22/2024 12:39 PM EDT): Post op pain appears well controlled Plan: - wean narcotics as able Assessment & Plan (09/21/2024 2:20 PM EDT): Post op pain appears well controlled Plan: - wean narcotics as able Assessment & Plan (09/20/2024 6:15 PM EDT): Post op pain appears well controlled Plan: - wean narcotics as able Assessment & Plan (09/19/2024 8:46 AM EDT): Post op pain appears well controlled Plan: - wean narcotics as able Assessment & Plan (09/18/2024 10:37 AM EDT): Post op pain appears well controlled Plan: - wean narcotics as able Assessment & Plan (09/17/2024 1:45 PM EDT): Post op pain appears well controlled Plan: - wean narcotics as able Assessment & Plan (09/16/2024 3:21 PM EDT): Post op pain appears well controlled Plan: - Pain management per ICU team Assessment & Plan (09/13/2024 2:07 PM EDT): Post op pain appears well controlled Plan: - Pain management per ICU team Status post liver transplantation 09/10/2024 Assessment & Plan (10/29/2024 12:49 PM EDT): Assessment: 09/09/24 DCD OLT (pumped with organox), piggyback transplant, PV main to main, [id number], duct to duct (running), transdiaphragmatic drainage of right hepatic hydrothorax, takedown of omental adhesions (>30mins) LVUS 10/08: patent liver vasculature, CBD wall thickening containing debris. Recommend further evaluation with MR pancreas/biliary. ERCP (10/15 - done due to elevated ALP) stones and sludge on cholangiogram. Moderate biliary stricture at common hepatic duct, [...] bactrim Needs repeat ERCP in 1 month Monitor drain output and color, plan to keep in place until repeat ERCP Will need outpatient ID follow up post discharge Assessment & Plan (10/28/2024 2:31 PM EDT): Assessment: 09/09/24 DCD OLT (pumped with organox), piggyback transplant, PV main to main, [id number], duct to duct (running), transdiaphragmatic drainage of right hepatic hydrothorax, takedown of omental adhesions (>30mins) LVUS 10/08: patent liver vasculature, CBD wall thickening containing debris. Recommend further evaluation with MR pancreas/biliary. ERCP (10/15 - done due to elevated ALP) stones and sludge on cholangiogram. Moderate biliary stricture at common hepatic duct, [...] transplant liver. Small volume loculated ascites. 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 (PICC line placed 10/24) with plan for at least 4 week course Monitor liver function daily Continue baby aspirin due to thrombocytosis Prophylaxis with bactrim Needs repeat ERCP in 1 month Monitor drain output and color, plan to keep in place until repeat ERCP Will need outpatient ID follow up post discharge Assessment & Plan (10/27/2024 10:28 AM EDT): Assessment: 09/09/24 DCD OLT (pumped with organox), piggyback transplant, PV main to main, [id number], duct to duct (running), transdiaphragmatic drainage of right hepatic hydrothorax, takedown of omental adhesions (>30mins) LVUS 10/08: patent liver vasculature, CBD wall thickening containing debris. Recommend further evaluation with MR pancreas/biliary. ERCP (10/15 - done due to elevated ALP) stones and sludge on cholangiogram. Moderate biliary stricture at common hepatic duct, [...] transplant liver. Small volume loculated ascites. 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 (PICC line placed 10/24) with plan for at least 4 week course Monitor liver function daily Continue baby aspirin due to thrombocytosis Prophylaxis with bactrim Needs repeat ERCP in 1 month Monitor drain output and color, plan to keep in place until repeat ERCP Will need outpatient ID follow up post discharge Assessment & Plan (10/26/2024 10:56 AM EDT): Assessment: 09/09/24 DCD OLT (pumped with organox), piggyback transplant, PV main to main, [id number], duct to duct (running), transdiaphragmatic drainage of right hepatic hydrothorax, takedown of omental adhesions (>30mins) LVUS 10/08: patent liver vasculature, CBD wall thickening containing debris. Recommend further evaluation with MR pancreas/biliary. ERCP (10/15 - done due to elevated ALP) stones and sludge on cholangiogram. Moderate biliary stricture at common hepatic duct, [...] transplant liver. Small volume loculated ascites. 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 Recommend further evaluation with MR pancreas/biliary. ERCP (10/15 - done due to elevated ALP) stones and sludge on cholangiogram. Moderate biliary stricture at common hepatic duct, [...] transplant liver. Small volume loculated ascites. 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 Recommend further evaluation with MR pancreas/biliary. ERCP (10/15) stones and sludge on cholangiogram. 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 Bile leak from donor cystic duct remnant which appears contained. Biliary sphincterotomy. Biliary tree swept, pus and debris found. Lg stone proximal to stenosis could not be removed. Metal stent placed in CBD CTAP 10/16: 5.2 cm collection in the gallbladder fossa with small amount of contrast, likely contained bile leak. Stable to slightly decreased size of geographic low-attenuation in the right hepatic lobe, possibly inflammatory or evolving infarct. Moderate volume abdominopelvic ascites. S/p Image-guided perihepatic collection aspiration + drain placement 10/17 New onset of abdominal pain 10/18 - CT abdomen w/o any acute processes KUB 10/19: Bowel gas pattern: Mildly dilated colon with the transverse colon measuring up to 6.2 cm. This is likely ileus. No significant small bowel dilatation. LVUS 10/19: Patent hepatic vasculature with appropriately directed flow. 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 Small volume loculated ascites. Abdominal Cx 10/17 VRE Plan: Continue Daptomycin, ID consulted-refer to plan for VRE infection PICC line ordered 10/22 and placed on 10/24 stop Zosyn 10/21 monitor liver function daily prophylaxis with bactrim PT and OT consult monitor mental status - Pt will likely need 1mo antibiotics while awaiting repeat ERCP for stone removal Assessment & Plan (10/23/2024 11:05 AM EDT): Assessment: 09/09/24 DCD OLT (pumped with organox), piggyback transplant, PV main to main, [id number], duct to duct (running), transdiaphragmatic drainage of right hepatic hydrothorax, takedown of omental adhesions (>30mins) CT brain 10/07- no acute changes LVUS 10/08-patent liver vasculature, CBD wall thickening containing debris. Recommend further evaluation with MR pancreas/biliary. ERCP (10/15) stones and sludge on cholangiogram. 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 Bile leak from donor cystic duct remnant which appears contained. Biliary sphincterotomy. Biliary tree swept, pus and debris found. Lg stone proximal to stenosis could not be removed. Metal stent placed in CBD CTAP 10/16: 5.2 cm collection in the gallbladder fossa with small amount of contrast, likely contained bile leak. Stable to slightly decreased size of geographic low-attenuation in the right hepatic lobe, possibly inflammatory or evolving infarct. Moderate volume abdominopelvic ascites. S/p Image-guided perihepatic collection aspiration + drain placement 10/17 New onset of abdominal pain 10/18 - CT abdomen w/o any acute processes KUB 10/19: Bowel gas pattern: Mildly dilated colon with the transverse colon measuring up to 6.2 cm. This is likely ileus. No significant small bowel dilatation. LVUS 10/19: Patent hepatic vasculature with appropriately directed flow. 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 Small volume loculated ascites. Abdominal Cx 10/17 VRE Plan: Continue Daptomycin, ID consulted-refer to plan for VRE infection PICC line ordered 10/22 stop Zosyn 10/21 monitor liver function daily prophylaxis with bactrim PT and OT consult monitor mental status - Pt will likely need 1mo antibiotics while awaiting repeat ERCP for stone removal Assessment & Plan (10/22/2024 4:36 PM EDT): Assessment: 09/09/24 DCD OLT (pumped with organox), piggyback transplant, PV main to main, [id number], duct to duct (running), transdiaphragmatic drainage of right hepatic hydrothorax, takedown of omental adhesions (>30mins) CT brain 10/07- no acute changes LVUS 10/08-patent liver vasculature, CBD wall thickening containing debris. Recommend further evaluation with MR pancreas/biliary. ERCP (10/15) stones and sludge on cholangiogram. 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 Bile leak from donor cystic duct remnant which appears contained. Biliary sphincterotomy. Biliary tree swept, pus and debris found. Lg stone proximal to stenosis could not be removed. Metal stent placed in CBD CTAP 10/16: 5.2 cm collection in the gallbladder fossa with small amount of contrast, likely contained bile leak. Stable to slightly decreased size of geographic low-attenuation in the right hepatic lobe, possibly inflammatory or evolving infarct. Moderate volume abdominopelvic ascites. S/p Image-guided perihepatic collection aspiration + drain placement 10/17 New onset of abdominal pain 10/18 - CT abdomen w/o any acute processes KUB 10/19: Bowel gas pattern: Mildly dilated colon with the transverse colon measuring up to 6.2 cm. This is likely ileus. No significant small bowel dilatation. LVUS 10/19: Patent hepatic vasculature with appropriately directed flow. 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 Small volume loculated ascites. Abdominal Cx 10/17 VRE Plan: Continue Daptomycin, ID consulted-refer to plan for VRE infection PICC line ordered 10/22 stop Zosyn 10/21 monitor liver function daily prophylaxis with bactrim PT and OT consult monitor mental status - Pt will likely need 1mo antibiotics while awaiting repeat ERCP for stone removal Assessment & Plan (10/21/2024 4:20 PM EDT): Assessment: 09/09/24 DCD OLT (pumped with organox), piggyback transplant, PV main to main, [id number], duct to duct (running), transdiaphragmatic drainage of right hepatic hydrothorax, takedown of omental adhesions (>30mins) CT brain 10/07- no acute changes LVUS 10/08-patent liver vasculature, CBD wall thickening containing debris. Recommend further evaluation with MR pancreas/biliary. ERCP (10/15) stones and sludge on cholangiogram. 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 Bile leak from donor cystic duct remnant which appears contained. Biliary sphincterotomy. Biliary tree swept, pus and debris found. Lg stone proximal to stenosis could not be removed. Metal stent placed in CBD CTAP 10/16: 5.2 cm collection in the gallbladder fossa with small amount of contrast, likely contained bile leak. Stable to slightly decreased size of geographic low-attenuation in the right hepatic lobe, possibly inflammatory or evolving infarct. Moderate volume abdominopelvic ascites. S/p Image-guided perihepatic collection aspiration + drain placement 10/17 New onset of abdominal pain 10/18 - CT abdomen w/o any acute processes KUB 10/19: Bowel gas pattern: Mildly dilated colon with the transverse colon measuring up to 6.2 cm. This is likely ileus. No significant small bowel dilatation. LVUS 10/19: Patent hepatic vasculature with appropriately directed flow. 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 Small volume loculated ascites. Abdominal Cx 10/17 VRE Plan: Continue Daptomycin, ID consulted-refer to plan for VRE infection amylase and lipase normal stop Zosyn 10/21 monitor liver function daily prophylaxis with bactrim PT and OT consult monitor mental status - Pt will likely need 1mo antibiotics while awaiting repeat ERCP for stone removal Assessment & Plan (10/20/2024 11:02 AM EDT): Assessment: 09/09/24 DCD OLT (pumped with organox), piggyback transplant, PV main to main, [id number], duct to duct (running), transdiaphragmatic drainage of right hepatic hydrothorax, takedown of omental adhesions (>30mins) CT brain 10/07- no acute changes LVUS 10/08-patent liver vasculature, CBD wall thickening containing debris. Recommend further evaluation with MR pancreas/biliary. ERCP (10/15) stones and sludge on cholangiogram. 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 Bile leak from donor cystic duct remnant which appears contained. Biliary sphincterotomy. Biliary tree swept, pus and debris found. Lg stone proximal to stenosis could not be removed. Metal stent placed in CBD CTAP 10/16: 5.2 cm collection in the gallbladder fossa with small amount of contrast, likely contained bile leak. Stable to slightly decreased size of geographic low-attenuation in the right hepatic lobe, possibly inflammatory or evolving infarct. Moderate volume abdominopelvic ascites. S/p Image-guided perihepatic collection aspiration + drain placement 10/17 New onset of abdominal pain 10/18 - CT abdomen w/o any acute processes KUB 10/19: Bowel gas pattern: Mildly dilated colon with the transverse colon measuring up to 6.2 cm. This is likely ileus. No significant small bowel dilatation. LVUS 10/19: Patent hepatic vasculature with appropriately directed flow. 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 Small volume loculated ascites. Abdominal Cx 10/17 VRE Plan: Send Lipase and Amylase to r/o pancreatitis Continue Daptomycin, ID consulted Continue Zosyn for now per Dr. Jarrell monitor liver function daily prophylaxis with bactrim PT and OT consult monitor mental status - Pt will likely need 1mo antibiotics while awaiting repeat ERCP for stone removal Assessment & Plan (10/19/2024 12:49 PM EDT): Assessment: 09/09/24 DCD OLT (pumped with organox), piggyback transplant, PV main to main, [id number], duct to duct (running), transdiaphragmatic drainage of right hepatic hydrothorax, takedown of omental adhesions (>30mins) CT brain 10/07- no acute changes LVUS 10/08-patent liver vasculature, CBD wall thickening containing debris. Recommend further evaluation with MR pancreas/biliary. ERCP (10/15) stones and sludge on cholangiogram. 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 Bile leak from donor cystic duct remnant which appears contained. Biliary sphincterotomy. Biliary tree swept, pus and debris found. Lg stone proximal to stenosis could not be removed. Metal stent placed in CBD CTAP 10/16: 5.2 cm collection in the gallbladder fossa with small amount of contrast, likely contained bile leak. Stable to slightly decreased size of geographic low-attenuation in the right hepatic lobe, possibly inflammatory or evolving infarct. Moderate volume abdominopelvic ascites. S/p Image-guided perihepatic collection aspiration + drain placement 10/17 New onset of abdominal pain 10/18 - CT abdomen w/o any acute processes Abdominal Cx 10/17 E. Faecium Plan: KUB LVUS ( aso evaluate for ascites) Start Daptomycin and consult ID monitor liver function daily prophylaxis with bactrim PT and OT consult monitor mental status - Pt will likely need 1mo antibiotics while awaiting repeat ERCP for stone removal Assessment & Plan (10/18/2024 11:02 AM EDT): Assessment: 09/09/24 DCD OLT (pumped with organox), piggyback transplant, PV main to main, [id number], duct to duct (running), transdiaphragmatic drainage of right hepatic hydrothorax, takedown of omental adhesions (>30mins) CT brain 10/07- no acute changes LVUS 10/08-patent liver vasculature, CBD wall thickening containing debris. Recommend further evaluation with MR pancreas/biliary. ERCP (10/15) stones and sludge on cholangiogram. 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 Bile leak from donor cystic duct remnant which appears contained. Biliary sphincterotomy. Biliary tree swept, pus and debris found. Lg stone proximal to stenosis could not be removed. Metal stent placed in CBD CTAP 10/16: 5.2 cm collection in the gallbladder fossa with small amount of contrast, likely contained bile leak. Stable to slightly decreased size of geographic low-attenuation in the right hepatic lobe, possibly inflammatory or evolving infarct. Moderate volume abdominopelvic ascites. S/p Image-guided perihepatic collection aspiration + drain placement 10/17 New onset of abdominal pain 10/18 Plan: CTAP with PO contrast monitor liver function daily prophylaxis with bactrim PT and OT consult monitor mental status - continue Zosyn, pending culture results will transition to Augmentin vs consult ID. - Pt will likely need 1mo antibiotics while awaiting repeat ERCP for stone removal Assessment & Plan (10/17/2024 11:37 AM EDT): Assessment: 09/09/24 DCD OLT (pumped with organox), piggyback transplant, PV main to main, [id number], duct to duct (running), transdiaphragmatic drainage of right hepatic hydrothorax, takedown of omental adhesions (>30mins) CT brain 10/07- no acute changes LVUS 10/08-patent liver vasculature, CBD wall thickening containing debris. Recommend further evaluation with MR pancreas/biliary. ERCP (10/15) stones and sludge on cholangiogram. 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 Bile leak from donor cystic duct remnant which appears contained. Biliary sphincterotomy. Biliary tree swept, pus and debris found. Lg stone proximal to stenosis could not be removed. Metal stent placed in CBD CTAP 10/16: 5.2 cm collection in the gallbladder fossa with small amount of contrast, likely contained bile leak. Stable to slightly decreased size of geographic low-attenuation in the right hepatic lobe, possibly inflammatory or evolving infarct. Moderate volume abdominopelvic ascites. Plan: monitor liver function daily regular diet prophylaxis with bactrim PT and OT consult monitor mental status - discussing with radiology drain placement vs aspiration for cultures - continue Zosyn, pending culture results will transition to Augmentin vs consult ID. 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 Recommend further evaluation with MR pancreas/biliary. ERCP (10/15) stones and sludge on cholangiogram. 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 Bile leak from donor cystic duct remnant which appears contained. Biliary sphincterotomy. Biliary tree swept, pus and debris found. Lg stone proximal to stenosis could not be removed. Metal stent placed in CBD Plan: monitor liver function daily regular diet prophylaxis with bactrim PT and OT consult monitor mental status - CT abd/pelvis w PO and IV contrast to further assess bile leak - continue Zosyn, pending CT results will transition to Augmentin vs consult ID. 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 Recommend further evaluation with MR pancreas/biliary. Plan: monitor liver function daily regular diet prophylaxis with bactrim PT and OT consult monitor mental status ERCP today Assessment & Plan (10/14/2024 4:45 PM EDT): Assessment: 09/09/24 DCD OLT (pumped with organox), piggyback transplant, PV main to main, [id number], duct to duct (running), transdiaphragmatic drainage of right hepatic hydrothorax, takedown of omental adhesions (>30mins) CT brain 10/07- no acute changes LVUS 10/08-patent liver vasculature, CBD wall thickening containing debris. Recommend further evaluation with MR pancreas/biliary. Plan: monitor liver function daily regular diet prophylaxis with bactrim PT and OT consult monitor mental status ERCP tomorrow CP today- EKG with no changes, troponin mildly elevated at 79. 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 Recommend further evaluation with MR pancreas/biliary. Plan: monitor liver function daily regular diet prophylaxis with bactrim PT and OT consult monitor mental status Order ERCP for Monday Assessment & Plan (10/12/2024 2:01 PM EDT): Assessment: 09/09/24 DCD OLT (pumped with organox), piggyback transplant, PV main to main, [id number], duct to duct (running), transdiaphragmatic drainage of right hepatic hydrothorax, takedown of omental adhesions (>30mins) CT brain 10/07- no acute changes LVUS 10/08-patent liver vasculature, CBD wall thickening containing debris. Recommend further evaluation with MR pancreas/biliary. Plan: monitor liver function daily regular diet prophylaxis with bactrim PT and OT consult monitor mental status Assessment & Plan (10/11/2024 3:38 PM EDT): Assessment: 09/09/24 DCD OLT (pumped with organox), piggyback transplant, PV main to main, [id number], duct to duct (running), transdiaphragmatic drainage of right hepatic hydrothorax, takedown of omental adhesions (>30mins) CT brain 10/07- no acute changes LVUS 10/08-patent liver vasculature, CBD wall thickening containing debris. Recommend further evaluation with MR pancreas/biliary. Plan: monitor liver function daily regular diet prophylaxis with bactrim PT and OT consult monitor mental status Assessment & Plan (10/10/2024 5:02 PM EDT): Assessment: 09/09/24 DCD OLT (pumped with organox), piggyback transplant, PV main to main, [id number], duct to duct (running), transdiaphragmatic drainage of right hepatic hydrothorax, takedown of omental adhesions (>30mins) CT brain 10/07- no acute changes LVUS 10/08-patent liver vasculature, CBD wall thickening containing debris. Recommend further evaluation with MR pancreas/biliary. Plan: monitor liver function daily regular diet prophylaxis with acyclovir and bactrim monitor CMV DNA weekly PT and OT consult monitor mental status Assessment & Plan (10/09/2024 4:51 PM EDT): Assessment: 09/09/24 DCD OLT (pumped with organox), piggyback transplant, PV main to main, [id number], duct to duct (running), transdiaphragmatic drainage of right hepatic hydrothorax, takedown of omental adhesions (>30mins) CT brain 10/07- no acute changes LVUS 10/08-patent liver vasculature, CBD wall thickening containing debris. Recommend further evaluation with MR pancreas/biliary. Plan: monitor liver function daily regular diet prophylaxis with acyclovir and bactrim monitor CMV DNA weekly PT and OT consult monitor mental status Assessment & Plan (10/08/2024 4:53 PM EDT): Assessment: 09/09/24 DCD OLT (pumped with organox), piggyback transplant, PV main to main, [id number], duct to duct (running), transdiaphragmatic drainage of right hepatic hydrothorax, takedown of omental adhesions (>30mins) CT brain 10/07- no acute changes LVUS 6/-patent liver vasculature, CBD wall thickening containing debris. Recommend further evaluation with MR pancreas/biliary. 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 Nava primary) Octreotide started on POD#1 for elevated [place] RI's LVUS 5/28: patent hepatic vasculature with appropriately directed flow. Improved resistive indices in the left hepatic artery and anterior right hepatic artery. Persistent elevated resistive indices of the main hepatic artery and the posterior right hepatic artery. LV US 6/3 normalized hepatic arterial waveforms - stop octreotide LVUS 6/6: Patent hepatic vasculature with appropriately directed flow. LFT's normalized INR normal Plan: - CMP daily, trend LFT's - Monitor incision - acyclovir, Nystatin, and Bactrim for prophylaxis Assessment & Plan (09/27/2024 2:20 PM EDT): H/o ETOH cirrhosis and newly diagnosed HCC now s/p DCD DCD OLT (pumped with organox), piggyback transplant, PV main to main, [id number], duct to duct (running), transdiaphragmatic drainage of right hepatic hydrothorax 09/09 (Dr. Nava primary) Octreotide started on POD#1 for elevated [place] RI's LVUS 5/28: patent hepatic vasculature with appropriately directed flow. Improved resistive indices in the left hepatic artery and anterior right hepatic artery. Persistent elevated resistive indices of the main hepatic artery and the posterior right hepatic artery. LV US 6/3 normalized hepatic arterial waveforms - stop octreotide LVUS 6/6: Patent hepatic vasculature with appropriately directed flow. LFT's normalized INR normal Plan: - CMP daily, trend LFT's - Monitor incision - acyclovir, Nystatin, and Bactrim for prophylaxis Assessment & Plan (09/26/2024 1:04 PM EDT): H/o ETOH cirrhosis and newly diagnosed HCC now s/p DCD DCD OLT (pumped with organox), piggyback transplant, PV main to main, [id number], duct to duct (running), transdiaphragmatic drainage of right hepatic hydrothorax 09/09 (Dr. Elijah maxwell) Octreotide started on POD#1 for elevated [place] RI's LVUS 5/28: patent hepatic vasculature with appropriately directed flow. Improved resistive indices in the left hepatic artery and anterior right hepatic artery. Persistent elevated resistive indices of the main hepatic artery and the posterior right hepatic artery. LV US 6/3 normalized hepatic arterial waveforms - stop octreotide LVUS 6/: Patent hepatic vasculature with appropriately directed flow. LFT's normalized INR normal Plan: - CMP daily, trend LFT's - Monitor incision - acyclovir, Nystatin, and Bactrim for prophylaxis Assessment & Plan (09/25/2024 12:42 PM EDT): H/o ETOH cirrhosis and newly diagnosed HCC now s/p DCD DCD OLT (pumped with organox), piggyback transplant, PV main to main, [id number], duct to duct (running), transdiaphragmatic drainage of right hepatic hydrothorax 09/09 (Dr. Elijah maxwell) Octreotide started on POD#1 for elevated [place] RI's LVUS 5/28: patent hepatic vasculature with appropriately directed flow. Improved resistive indices in the left hepatic artery and anterior right hepatic artery. Persistent elevated resistive indices of the main hepatic artery and the posterior right hepatic artery. LV US 6/3 normalized hepatic arterial waveforms - stop octreotide LVUS 6/6: Patent hepatic vasculature with appropriately directed flow. LFT's normalized INR normal Plan: - CMP daily, trend LFT's - Monitor incision, remove last DANIEL - acyclovir, Nystatin, and Bactrim for prophylaxis Assessment & Plan (09/24/2024 11:43 AM EDT): H/o ETOH cirrhosis and newly diagnosed HCC now s/p DCD DCD OLT (pumped with organox), piggyback transplant, PV main to main, [id number], duct to duct (running), transdiaphragmatic drainage of right hepatic hydrothorax 5/ (Dr. Elijah maxwell) Octreotide started on POD#1 for elevated [place] RI's LVUS 5/28: patent hepatic vasculature with appropriately directed flow. Improved resistive indices in the left hepatic artery and anterior right hepatic artery. Persistent elevated resistive indices of the main hepatic artery and the posterior right hepatic artery. LV US 6/3 normalized hepatic arterial waveforms - stop octreotide LVUS 6/6: Patent hepatic vasculature with appropriately directed flow. LFT's normalized INR normal Plan: - CMP daily, trend LFT's - Monitor incision and DANIEL drain - acyclovir, Nystatin, and Bactrim for prophylaxis Assessment & Plan (09/23/2024 11:40 AM EDT): H/o ETOH cirrhosis and newly diagnosed HCC now s/p DCD DCD OLT (pumped with organox), piggyback transplant, PV main to main, [id number], duct to duct (running), transdiaphragmatic drainage of right hepatic hydrothorax 5/ (Dr. Elijah maxwell) Octreotide started on POD#1 for elevated [place] RI's LVUS 5/28: patent hepatic vasculature with appropriately directed flow. Improved resistive indices in the left hepatic artery and anterior right hepatic artery. Persistent elevated resistive indices of the main hepatic artery and the posterior right hepatic artery. LV US 6/3 normalized hepatic arterial waveforms - stop octreotide LVUS 6/6: Patent hepatic vasculature with appropriately directed flow. LFT's normalized INR normal Plan: - CMP daily, trend LFT's - Monitor incision and DANIEL drain - acyclovir, Nystatin, and Bactrim for prophylaxis Assessment & Plan (09/22/2024 12:39 PM EDT): H/o ETOH cirrhosis and newly diagnosed HCC now s/p DCD DCD OLT (pumped with organox), piggyback transplant, PV main to main, [id number], duct to duct (running), transdiaphragmatic drainage of right hepatic hydrothorax 09/09 (Dr. Elijah maxwell) Octreotide started on POD#1 for elevated [place] RI's LVUS 5/28: patent hepatic vasculature with appropriately directed flow. Improved resistive indices in the left hepatic artery and anterior right hepatic artery. Persistent elevated resistive indices of the main hepatic artery and the posterior right hepatic artery. LV US 6/3 normalized hepatic arterial waveforms - stop octreotide LVUS 6/6: Patent hepatic vasculature with appropriately directed flow. LFT's are improving INR normal Plan: - CMP daily, trend LFT's - Monitor incision and DANIEL drain - acyclovir, Nystatin, and Bactrim for prophylaxis Assessment & Plan (09/21/2024 2:20 PM EDT): H/o ETOH cirrhosis and newly diagnosed HCC now s/p DCD DCD OLT (pumped with organox), piggyback transplant, PV main to main, [id number], duct to duct (running), transdiaphragmatic drainage of right hepatic hydrothorax 09/09 (Dr. Elijah maxwell) Octreotide started on POD#1 for elevated [place] RI's LVUS 528: patent hepatic vasculature with appropriately directed flow. Improved resistive indices in the left hepatic artery and anterior right hepatic artery. Persistent elevated resistive indices of the main hepatic artery and the posterior right hepatic artery. LV US 6/3 normalized hepatic arterial waveforms - stop octreotide LVUS 6/6: Patent hepatic vasculature with appropriately directed flow. LFT's are improving INR normal Plan: - CMP daily, trend LFT's - Monitor incision and DANIEL drain - acyclovir, Nystatin, and Bactrim for prophylaxis Assessment & Plan (09/20/2024 6:14 PM EDT): H/o ETOH cirrhosis and newly diagnosed HCC now s/p DCD DCD OLT (pumped with organox), piggyback transplant, PV main to main, [id number], duct to duct (running), transdiaphragmatic drainage of right hepatic hydrothorax 09/09 (Dr. Elijah maxwell) Octreotide started on POD#1 for elevated [place] RI's LVUS 528: patent hepatic vasculature with appropriately directed flow. Improved resistive indices in the left hepatic artery and anterior right hepatic artery. Persistent elevated resistive indices of the main hepatic artery and the posterior right hepatic artery. LV US 6/3 normalized hepatic arterial waveforms - stop octreotide LFT's are improving INR normal Plan: - CMP daily, trend LFT's - Monitor incision and DANIEL drain - acyclovir, Nystatin, and Bactrim for prophylaxis - repeat LV US today Assessment & Plan (09/19/2024 11:58 AM EDT): H/o ETOH cirrhosis and newly diagnosed HCC now s/p DCD DCD OLT (pumped with organox), piggyback transplant, PV main to main, [id number], duct to duct (running), transdiaphragmatic drainage of right hepatic hydrothorax 09/09 (Dr. Nava primary) Octreotide started on POD#1 for elevated [place] RI's LVUS 09/11: patent hepatic vasculature with appropriately directed flow. Improved resistive indices in the left hepatic artery and anterior right hepatic artery. Persistent elevated resistive indices of the main hepatic artery and the posterior right hepatic artery. LV US 6/3 normalized hepatic arterial waveforms - stop octreotide LFT's are improving INR normal Plan: - CMP daily, trend LFT's - Monitor incision and DANIEL drain - acyclovir, Nystatin, and Bactrim for prophylaxis - repeat LV US tomorrow AM Assessment & Plan (09/18/2024 10:34 AM EDT): H/o ETOH cirrhosis and newly diagnosed HCC now s/p DCD DCD OLT (pumped with organox), piggyback transplant, PV main to main, [id number], duct to duct (running), transdiaphragmatic drainage of right hepatic hydrothorax 09/09 (Dr. Elijah maxwell) Octreotide started on POD#1 for elevated [place] RI's LVUS 09/11: patent hepatic vasculature with appropriately directed flow. Improved resistive indices in the left hepatic artery and anterior right hepatic artery. Persistent elevated resistive indices of the main hepatic artery and the posterior right hepatic artery. LV US 6/3 normalized hepatic arterial waveforms - stop octreotide LFT's are improving INR normal Plan: - CMP daily, trend LFT's - Monitor incision and DANIEL drains - acyclovir, Nystatin, and Bactrim for prophylaxis - repeat LV US Assessment & Plan (09/17/2024 1:14 PM EDT): H/o ETOH cirrhosis and newly diagnosed HCC now s/p DCD DCD OLT (pumped with organox), piggyback transplant, PV main to main, [id number], duct to duct (running), transdiaphragmatic drainage of right hepatic hydrothorax 09/09 (Dr. Nava primary) Octreotide started on POD#1 for elevated [place] RI's LVUS 5/28: patent hepatic vasculature with appropriately directed flow. Improved resistive indices in the left hepatic artery and anterior right hepatic artery. Persistent elevated resistive indices of the main hepatic artery and the posterior right hepatic artery. LV US 6/3 normalized hepatic arterial waveforms LFT's are improving INR normal Plan: - CMP daily, trend LFT's - Monitor incision and DANIEL drains - stop octreotide gtt 6/3 - acyclovir, Nystatin, and Bactrim for prophylaxis Assessment & Plan (09/16/2024 10:52 AM EDT): H/o ETOH cirrhosis and newly diagnosed HCC now s/p DCD DCD OLT (pumped with organox), piggyback transplant, PV main to main, [id number], duct to duct (running), transdiaphragmatic drainage of right hepatic hydrothorax 09/09 (Dr. Nava primary) Octreotide started on POD#1 for elevated [place] RI's LVUS 5/28: patent hepatic vasculature with appropriately directed flow. Improved resistive indices in the left hepatic artery and anterior right hepatic artery. Persistent elevated resistive indices of the main hepatic artery and the posterior right hepatic artery. LFT's are improving INR normal Plan: - CMP daily, trend LFT's - Monitor incision and DANIEL drains - Continue Octreotide gtt - Repeat LVUS - Acyclovir, Nystatin, and Bactrim for prophylaxis Assessment & Plan (09/13/2024 2:09 PM EDT): H/o ETOH cirrhosis and newly diagnosed HCC now s/p DCD DCD OLT (pumped with organox), piggyback transplant, PV main to main, [id number], duct to duct (running), transdiaphragmatic drainage of right hepatic hydrothorax 09/09 (Dr. Nava primary) Octreotide started post operatively on POD#1 for elevated [place] RI's LVUS 09/11: patent hepatic vasculature with appropriately directed flow. Improved resistive indices in the left hepatic artery and anterior right hepatic artery. Persistent elevated resistive indices of the main hepatic artery and the posterior right hepatic artery. LFT's are improving INR normal Plan: - CMP daily, trend LFT's - Monitor incision and DANIEL drains - Continue Octreotide gtt - Repeat LVUS tomorrow - Advance diet to GI soft - Acyclovir, Nystatin, and Bactrim for prophylaxis - C Diff due to diarrhea - Right upper extremity ultrasound due to right arm swelling Acute blood loss anemia (ABLA) 09/09/2024 Assessment & Plan (09/28/2024 4:20 PM EDT): Intra op EBL <1L Hgb 8.4 No evidence of bleeding last transfusion 09/27 Plan: - CBC with diff daily - Monitor for bleeding - Transfuse as needed- Assessment & Plan (09/27/2024 2:26 PM EDT): Intra op EBL <1L Hgb 7.0, likely a dilutional component w albumin replacement x2 days No evidence of bleeding Plan: - CBC with diff daily - Monitor for bleeding - Transfuse as needed- 1u pRBC 09/27 Assessment & Plan (09/26/2024 1:05 PM EDT): Intra op EBL <1L Hgb <7 No evidence of bleeding Plan: - CBC with diff daily - Monitor for bleeding - Transfuse as needed - please check with Liver Transplant team prior to transfusing Assessment & Plan (09/25/2024 12:55 PM EDT): Intra op EBL <1L Hgb stable No evidence of bleeding Plan: - CBC with diff daily - Monitor for bleeding - Transfuse as needed - please check with Liver Transplant team prior to transfusing Assessment & Plan (09/24/2024 11:46 AM EDT): Intra op EBL <1L Hgb stable No evidence of bleeding Plan: - CBC with diff daily - Monitor for bleeding - Transfuse as needed - please check with Liver Transplant team prior to transfusing Assessment & Plan (09/23/2024 11:47 AM EDT): Intra op EBL <1L Hgb stable No evidence of bleeding Plan: - CBC with diff daily - Monitor for bleeding - Transfuse as needed - please check with Liver Transplant team prior to transfusing Assessment & Plan (09/22/2024 12:41 PM EDT): Intra op EBL <1L Hgb stable No evidence of bleeding Plan: - CBC with diff daily - Monitor for bleeding - Transfuse as needed - please check with Liver Transplant team prior to transfusing Assessment & Plan (09/21/2024 2:22 PM EDT): Intra op EBL <1L Hgb stable No evidence of bleeding Plan: - CBC with diff daily - Monitor for bleeding - Transfuse as needed - please check with Liver Transplant team prior to transfusing Assessment & Plan (09/20/2024 6:15 PM EDT): Intra op EBL <1L Hgb stable No evidence of bleeding Plan: - CBC with diff daily - Monitor for bleeding - Transfuse as needed - please check with Liver Transplant team prior to transfusing Assessment & Plan (09/19/2024 8:39 AM EDT): Intra op EBL <1L Hgb stable No evidence of bleeding Plan: - CBC with diff daily - Monitor for bleeding - Transfuse as needed - please check with Liver Transplant team prior to transfusing Assessment & Plan (09/18/2024 10:36 AM EDT): Intra op EBL <1L Hgb stable No evidence of bleeding Plan: - CBC with diff daily - Monitor for bleeding - Transfuse as needed - please check with Liver Transplant team prior to transfusing Assessment & Plan (09/17/2024 1:26 PM EDT): Intra op EBL <1L Hgb stable No evidence of bleeding Plan: - CBC with diff daily - Monitor for bleeding - Transfuse as needed - please check with Liver Transplant team prior to transfusing Assessment & Plan (09/16/2024 3:20 PM EDT): Intra op EBL <1L Hgb stable No evidence of bleeding Plan: - CBC with diff daily - Monitor for bleeding - Transfuse as needed - please check with Liver Transplant team prior to transfusing Assessment & Plan (09/13/2024 2:07 PM EDT): Intra op EBL <1L Hgb 10.8 - stable No evidence of bleeding Plan: - CBC with diff daily - Monitor for bleeding - Transfuse as needed - please check with Liver Transplant team prior to transfusing Chronic kidney disease 09/06/2024 Assessment & Plan (09/28/2024 4:21 PM EDT): H/o CKD stage 3 with superimposed PERLITA Baseline Cr ~1.5 Had PERLITA pre-transplant, now with ongoing PERLITA post transplant - Cr peaked at 2.83/XMY300 on 09/14, now improving BUN and Cr returned to baseline 6 Sodium improved/stabilized Plan: - Nephrology is following, appreciate recommendations. signed off 09/16 - Monitor renal function and electrolyte closely - Monitor urine output Assessment & Plan (09/27/2024 2:27 PM EDT): H/o CKD stage 3 with superimposed PERLITA Baseline Cr ~1.5 Had PERLITA pre-transplant, now with ongoing PERLITA post transplant - Cr peaked at 2.83/PNG472 on 09/14, now improving BUN and Cr returned to baseline 3 Sodium improved/stabilized Plan: - Nephrology is following, appreciate recommendations - Monitor renal function and electrolyte closely - Monitor urine output Assessment & Plan (09/26/2024 1:05 PM EDT): H/o CKD stage 3 with superimposed PERLITA Baseline Cr ~1.5 Had PERLITA pre-transplant, now with ongoing PERLITA post transplant - Cr peaked at 2.83/POY225 on 09/14, now improving BUN and Cr returned to baseline 6/3 Sodium improved/stabilized Plan: - Nephrology is following, appreciate recommendations - Monitor renal function and electrolyte closely - Monitor urine output Assessment & Plan (09/25/2024 12:55 PM EDT): H/o CKD stage 3 with superimposed PERLITA Baseline Cr ~1.5 Had PERLITA pre-transplant, now with ongoing PERLITA post transplant - Cr peaked at 2.83/[id number] on 09/14, now improving BUN and Cr returned to baseline 6/3 Sodium improved/stabilized Plan: - Nephrology is following, appreciate recommendations - Monitor renal function and electrolyte closely - Monitor urine output Assessment & Plan (09/24/2024 11:46 AM EDT): H/o CKD stage 3 with superimposed PERLITA Baseline Cr ~1.5 Had PERLITA pre-transplant, now with ongoing PERLITA post transplant - Cr peaked at 2.83/[id number] on 09/14, now improving BUN and Cr returned to baseline 6/3 Sodium improved/stabilized Plan: - Nephrology is following, appreciate recommendations - Monitor renal function and electrolyte closely - Monitor urine output Assessment & Plan (09/23/2024 11:47 AM EDT): H/o CKD stage 3 with superimposed PERLITA Baseline Cr ~1.5 Had PERLITA pre-transplant, now with ongoing PERLITA post transplant - Cr peaked at 2.83/MWB240 on 09/14, now improving BUN and Cr returned to baseline 6/3 Sodium improved/stabilized Plan: - Nephrology is following, appreciate recommendations - Monitor renal function and electrolyte closely - Monitor urine output Assessment & Plan (09/22/2024 12:41 PM EDT): H/o CKD stage 3 with superimposed PERLITA Baseline Cr ~1.5 Had PERLITA pre-transplant, now with ongoing PERLIAT post transplant - Cr peaked at 2.83/FYO223 on 09/14, now improving BUN and Cr returned to baseline 6/3 Sodium improved/stabilized Plan: - Nephrology is following, appreciate recommendations - Monitor renal function and electrolyte closely - Monitor urine output Assessment & Plan (09/21/2024 2:22 PM EDT): H/o CKD stage 3 with superimposed PERLITA Baseline Cr ~1.5 Had PERLITA pre-transplant, now with ongoing PERLITA post transplant - Cr peaked at 2.83/[id number] on 09/14, now improving BUN and Cr returned to baseline 6/3 Sodium improved/stabilized Plan: - Nephrology is following, appreciate recommendations - Monitor renal function and electrolyte closely - Monitor urine output Assessment & Plan (09/20/2024 6:14 PM EDT): H/o CKD stage 3 with superimposed PERLITA Baseline Cr ~1.5 Had PERLITA pre-transplant, now with ongoing PERLITA post transplant - Cr peaked at 2.83/AFY792 on 09/14, now improving BUN and Cr returned to baseline 6/3 Sodium improved/stabilized Plan: - Nephrology is following, appreciate recommendations - Monitor renal function and electrolyte closely - Monitor urine output Assessment & Plan (09/19/2024 8:46 AM EDT): H/o CKD stage 3 with superimposed PERLITA Baseline Cr ~1.5 Had PERLITA pre-transplant, now with ongoing PERLITA post transplant - Cr peaked at 2.83/OFZ013 on 09/14, now improving BUN and Cr returned to baseline 6/3 Sodium improved/stabilized Plan: - Nephrology is following, appreciate recommendations - Monitor renal function and electrolyte closely - Monitor urine output Assessment & Plan (09/18/2024 10:36 AM EDT): H/o CKD stage 3 with superimposed PERLITA Baseline Cr ~1.5 Had PERLITA pre-transplant, now with ongoing PERLITA post transplant - Cr peaked at 2.83/WMR394 on 09/14, now improving BUN and Cr remain elevated Sodium improving Plan: - Nephrology is following, appreciate recommendations - Monitor renal function and electrolyte closely - Monitor urine output Assessment & Plan (09/17/2024 1:33 PM EDT): H/o CKD stage 3 with superimposed PERLITA Baseline Cr ~1.5 Had PERLITA pre-transplant, now with ongoing PERLITA post transplant - Cr peaked at 2.83/[id number] on 09/14, now improving BUN and Cr remain elevated Sodium improving Plan: - Nephrology is following, appreciate recommendations - Monitor renal function and electrolyte closely - Monitor urine output Assessment & Plan (09/16/2024 3:21 PM EDT): H/o CKD stage 3 with superimposed PERLITA Baseline Cr ~1.5 Had PERLITA pre-transplant, now with ongoing PERLITA post transplant BUN and Cr remain elevated Sodium improving Plan: - Nephrology is following, appreciate recommendations - Monitor renal function and electrolyte closely - Monitor urine output Assessment & Plan (09/13/2024 2:03 PM EDT): H/o CKD stage 3 with superimposed PERLITA Baseline Cr ~1.5 Had PERLITA pre-transplant, now with ongoing PERLITA post transplant BUN and Cr remain elevated Sodium remains low and is trending down Plan: - Nephrology is following, appreciate recommendations: today, plan for 500 cc NaCl bolus then repeating serum Na, urine Osm, and urine Na - Monitor renal function and electrolyte closely - Monitor urine output - 1 L fluid restriction Thrombocytopenia 09/04/2024 Ascites due to alcoholic cirrhosis 09/02/2024 Hepatocellular carcinoma 08/31/2024 Portal hypertension with esophageal varices 08/15 Encounter for pre-transplant evaluation for liver transplant 08/31/2024 Polyp of colon 08/31/2024 Severe protein-calorie malnutrition 08/27/2024 Assessment & Plan (10/29/2024 12:49 PM EDT): Assessment: In the context of: Acute Illness or Injury Based on: Muscle Loss, Subcutaneous Fat Loss Made NPO 7/10 due to N/V requiring NG tube placement NG removed 10/25, started on clear liquids Now tolerating regular diet Plan: Continue regular diet Nutrition following Assessment & Plan (10/28/2024 2:30 PM EDT): Assessment: In the context of: Acute Illness or Injury Based on: Muscle Loss, Subcutaneous Fat Loss Made NPO 7/10 due to N/V requiring NG tube placement NG removed 10/25, started on clear liquids Now tolerating regular diet Plan: Continue regular diet Nutrition following Assessment & Plan (10/27/2024 10:28 AM EDT): Assessment: In the context of: Acute Illness or Injury Based on: Muscle Loss, Subcutaneous Fat Loss Made NPO 10 due to N/V requiring NG tube placement NG removed 10/25, started on clear liquids Now tolerating regular diet Plan: Continue regular diet Nutrition following Assessment & Plan (10/26/2024 10:56 AM EDT): Assessment: In the context of: Acute Illness or Injury Based on: Muscle Loss, Subcutaneous Fat Loss Made NPO 10 due to N/V requiring NG tube placement NG removed 10/25, started on clear liquids Plan: Advance diet to regular Stop IV fluids Nutrition following Assessment & Plan (10/25/2024 1:47 PM EDT): Assessment: In the context of: Acute Illness or Injury Based on: Muscle Loss, Subcutaneous Fat Loss Made NPO 10/24 due to N/V requiring NG tube placement Plan: Nutrition following Keep NPO for today with ice chips/sips of water for comfort Continue IVF for hydration Assessment & Plan (10/24/2024 4:54 PM EDT): Assessment: In the context of: Acute Illness or Injury Based on: Muscle Loss, Subcutaneous Fat Loss Plan: nutrition on consult regular diet with supplements Start Reglan for appetite stimulation IVF to KVO 7/7 Assessment & Plan (10/23/2024 11:05 AM EDT): Assessment: In the context of: Acute Illness or Injury Based on: Muscle Loss, Subcutaneous Fat Loss Plan: nutrition on consult regular diet with supplements Start Reglan for appetite stimulation IVF to KVO 7/7 Assessment & Plan (10/22/2024 4:37 PM EDT): Assessment: In the context of: Acute Illness or Injury Based on: Muscle Loss, Subcutaneous Fat Loss Plan: nutrition on consult regular diet with supplements IVF to KVO 7/7 Assessment & Plan (10/21/2024 4:20 PM EDT): Assessment: In the context of: Acute Illness or Injury Based on: Muscle Loss, Subcutaneous Fat Loss Plan: nutrition on consult regular diet with supplements IVF to KVO 10/21 Assessment & Plan (10/20/2024 11:00 AM EDT): Assessment: In the context of: Acute Illness or Injury Based on: Muscle Loss, Subcutaneous Fat Loss Plan: nutrition on consult Assessment & Plan (10/19/2024 12:47 PM EDT): Assessment: In the context of: Acute Illness or Injury Based on: Muscle Loss, Subcutaneous Fat Loss Plan: nutrition on consult Assessment & Plan (10/18/2024 11:01 AM EDT): Assessment: In the context of: Acute Illness or Injury Based on: Muscle Loss, Subcutaneous Fat Loss Plan: nutrition on consult Assessment & Plan (10/17/2024 11:16 AM EDT): Assessment: In the context of: Acute Illness or Injury Based on: Muscle Loss, Subcutaneous Fat Loss Plan: nutrition on consult Assessment & Plan (10/16/2024 1:19 PM EDT): Assessment: In the context of: Acute Illness or Injury Based on: Muscle Loss, Subcutaneous Fat Loss Plan: nutrition on consult Assessment & Plan (10/15/2024 4:10 PM EDT): Assessment: In the context of: Acute Illness or Injury Based on: Muscle Loss, Subcutaneous Fat Loss Plan: nutrition on consult Assessment & Plan (10/14/2024 4:45 PM EDT): Assessment: In the context of: Acute Illness or Injury Based on: Muscle Loss, Subcutaneous Fat Loss Plan: nutrition on consult Assessment & Plan (10/13/2024 8:43 AM EDT): Assessment: In the context of: Acute Illness or Injury Based on: Muscle Loss, Subcutaneous Fat Loss Plan: nutrition on consult Assessment & Plan (10/12/2024 2:01 PM EDT): Assessment: In the context of: Acute Illness or Injury Based on: Muscle Loss, Subcutaneous Fat Loss Plan: nutrition on consult Assessment & Plan (10/11/2024 3:39 PM EDT): Assessment: In the context of: Acute Illness or Injury Based on: Muscle Loss, Subcutaneous Fat Loss Plan: nutrition on consult Assessment & Plan (10/10/2024 5:02 PM EDT): Assessment: on regular diet Plan: nutrition on consult Assessment & Plan (10/09/2024 4:51 PM EDT): Assessment: on regular diet Plan: nutrition on consult Assessment & Plan (09/28/2024 4:22 PM EDT): In the context of: Chronic Illness or Injury Based on: Subcutaneous Fat Loss, Muscle Loss Plan: - nutrition following - encourage good PO intake Assessment & Plan (09/27/2024 2:27 PM EDT): In the context of: Chronic Illness or Injury Based on: Subcutaneous Fat Loss, Muscle Loss Plan: - nutrition following - encourage good PO intake Assessment & Plan (09/26/2024 1:07 PM EDT): In the context of: Chronic Illness or Injury Based on: Subcutaneous Fat Loss, Muscle Loss Plan: - nutrition following - encourage good PO intake CKD stage 3a, GFR 45-59 ml/min 08/27/2024 Hyponatremia 08/27/2024 Assessment & Plan (09/28/2024 4:22 PM EDT): See CKD Assessment & Plan (09/27/2024 2:27 PM EDT): See CKD Assessment & Plan (09/26/2024 1:05 PM EDT): See CKD Assessment & Plan (09/25/2024 12:55 PM EDT): See CKD Assessment & Plan (09/24/2024 11:45 AM EDT): See CKD Assessment & Plan (09/23/2024 11:47 AM EDT): See CKD Assessment & Plan (09/22/2024 12:41 PM EDT): See CKD Assessment & Plan (09/21/2024 2:21 PM EDT): See CKD Assessment & Plan (09/20/2024 6:14 PM EDT): See CKD Assessment & Plan (09/19/2024 8:46 AM EDT): See CKD Assessment & Plan (09/18/2024 10:37 AM EDT): See CKD Assessment & Plan (09/17/2024 1:33 PM EDT): See CKD Assessment & Plan (09/16/2024 3:21 PM EDT): See CKD Assessment & Plan (09/13/2024 2:03 PM EDT): See CKD Hyperkalemia 08/27/2024 Hypervolemia 08/27/2024 Decompensated cirrhosis 08/26/2024 Alcoholic cirrhosis of liver with ascites 2024 Pleural effusion 08/24/2024 Assessment & Plan (09/28/2024 4:22 PM EDT): CXR with medium to large right pleural effusion S/p R chest tube placement by ICU team 09/12 - removed 09/22 Plan: - Monitor respiratory status Assessment & Plan (09/27/2024 2:22 PM EDT): CXR with medium to large right pleural effusion S/p R chest tube placement by ICU team 09/12 - removed 09/22 Plan: - Monitor respiratory status Assessment & Plan (09/26/2024 1:04 PM EDT): CXR with medium to large right pleural effusion S/p R chest tube placement by ICU team 09/12 - removed 08/22 Plan: - Monitor respiratory status Assessment & Plan (09/25/2024 12:54 PM EDT): CXR with medium to large right pleural effusion S/p R chest tube placement by ICU team 09/12 - removed 08/22 Plan: - Monitor respiratory status Assessment & Plan (09/24/2024 11:44 AM EDT): CXR with medium to large right pleural effusion S/p R chest tube placement by ICU team 09/12 - removed 08/22 Plan: - Monitor respiratory status Assessment & Plan (09/23/2024 11:47 AM EDT): CXR with medium to large right pleural effusion S/p R chest tube placement by ICU team 09/12 - 08/22 Plan: - Monitor respiratory status - check CXR Assessment & Plan (09/22/2024 12:40 PM EDT): CXR with medium to large right pleural effusion S/p R chest tube placement by ICU team 09/12 110mL output/24hrs CXR 6/7: There is a small right apical pneumothorax. Bilateral pleural effusions are present with adjacent atelectasis. Right effusion may be loculated. No pulmonary edema. Plan: - Remove Chest tube today - Monitor respiratory status - check CXR tomorrow Assessment & Plan (09/21/2024 2:21 PM EDT): CXR with medium to large right pleural effusion S/p R chest tube placement by ICU team 09/12 70mL output/24hrs CXR 6/7: There is a small right apical pneumothorax. Bilateral pleural effusions are present with adjacent atelectasis. Right effusion may be loculated. No pulmonary edema. Plan: - Monitor chest tube output - Monitor respiratory status - check CXR tomorrow - Lasix 40 mg IV once today Assessment & Plan (09/20/2024 6:14 PM EDT): CXR with medium to large right pleural effusion S/p R chest tube placement by ICU team 5 410mL output/24hrs Plan: - Monitor chest tube output - Monitor respiratory status - check CXR today Assessment & Plan (09/19/2024 12:02 PM EDT): CXR with medium to large right pleural effusion S/p R chest tube placement by ICU team 5 350mL output/24hrs Plan: - Monitor chest tube output - Monitor respiratory status - Lasix IV 40mg x1 Assessment & Plan (09/18/2024 10:35 AM EDT): CXR with medium to large right pleural effusion S/p R chest tube placement by ICU team 5 270mL output/24hrs Plan: - Monitor chest tube output - Monitor respiratory status Assessment & Plan (09/17/2024 1:15 PM EDT): CXR with medium to large right pleural effusion S/p R chest tube placement by ICU team 09/12 534mL output/24hrs Plan: - Monitor chest tube output - Monitor respiratory status Assessment & Plan (09/16/2024 3:19 PM EDT): CXR with medium to large right pleural effusion S/p R chest tube placement by ICU team 09/12 386 mL output/24hrs Plan: - Monitor chest tube output - Monitor respiratory status Assessment & Plan (09/13/2024 1:59 PM EDT): CXR with medium to large right pleural effusion S/p R chest tube placement by ICU team 09/12: 1.5 L output Plan: - Monitor chest tube output - Monitor respiratory status Chronic midline back pain 08/24/2024 Hepatic encephalopathy 08/23/2024 Other ascites 05/01/2024 Incisional hernia without me ntion of obstruction or gangrene 12/06/2012 Osteoporosis 11/26/2012 GERD (gastroesophageal reflux disease) 3 Assessment & Plan (10/29/2024 12:49 PM EDT): Assessment: History of GERD Plan: Continue pepcid BID Continue protonix BID Assessment & Plan (10/28/2024 2:30 PM EDT): Assessment: History of GERD Plan: Continue pepcid BID Continue protonix BID Assessment & Plan (10/27/2024 10:28 AM EDT): Assessment: History of GERD Plan: Continue pepcid BID Continue protonix BID Assessment & Plan (10/26/2024 10:54 AM EDT): Assessment: History of GERD Plan: Continue pepcid BID Continue protonix BID Assessment & Plan (10/25/2024 1:45 PM EDT): Assessment: History of GERD Plan: Continue pepcid BID Continue protonix BID Assessment & Plan (10/24/2024 4:53 PM EDT): Assessment: hx of GERD Plan: continue pepcid BID continue protonix BID Assessment & Plan (10/23/2024 11:06 AM EDT): Assessment: hx of GERD Plan: continue pepcid BID continue protonix BID Assessment & Plan (10/22/2024 4:36 PM EDT): Assessment: hx of GERD Plan: continue pepcid BID continue protonix BID Assessment & Plan (10/21/2024 4:17 PM EDT): Assessment: hx of GERD Plan: continue pepcid BID continue protonix BID Assessment & Plan (10/20/2024 11:03 AM EDT): Assessment: hx of GERD Plan: continue pepcid BID continue protonix BID Assessment & Plan (10/19/2024 12:50 PM EDT): Assessment: hx of GERD Plan: continue pepcid BID continue protonix BID Assessment & Plan (10/18/2024 11:02 AM EDT): Assessment: hx of GERD Plan: continue pepcid BID continue protonix BID Assessment & Plan (10/17/2024 11:43 AM EDT): Assessment: hx of GERD Plan: continue pepcid BID continue protonix BID Assessment & Plan (10/16/2024 12:37 PM EDT): Assessment: hx of GERD Plan: continue pepcid BID continue protonix BID Assessment & Plan (10/15/2024 4:09 PM EDT): Assessment: hx of GERD Plan: continue pepcid BID continue protonix BID Assessment & Plan (10/14/2024 4:44 PM EDT): Assessment: hx of GERD Plan: continue pepcid BID continue protonix BID Assessment & Plan (10/13/2024 8:41 AM EDT): Assessment: hx of GERD Plan: continue pepcid BID continue protonix BID Assessment & Plan (10/12/2024 2:01 PM EDT): Assessment: hx of GERD Plan: continue pepcid BID continue protonix BID Assessment & Plan (10/11/2024 3:38 PM EDT): Assessment: hx of GERD Plan: continue pepcid BID continue protonix BID Assessment & Plan (10/10/2024 5:01 PM EDT): Assessment: hx of GERD Plan: continue pepcid BID continue protonix BID Assessment & Plan (10/09/2024 4:51 PM EDT): Assessment: hx of GERD Plan: continue pepcid BID continue protonix BID Assessment & Plan (10/08/2024 4:46 PM EDT): Assessment: hx of GERD Plan: continue pepcid BID continue protonix BID [place]'s esophagus 11/26/2012 HTN (hypertension) 11/26/2012 Hx of colonic polyps Resolved Problems Problem Noted Date Diagnosed Date Resolved Date Chest pain on breathing 10/15/202410/15 Assessment & Plan (10/25/2024 1:55 PM EDT): Assessment: CXR 6/30 Moderate right pleural effusion is noted, possibly redistributed. Also noted is small left pleural effusion. There is central pulmonary venous congestion without overt edema. Patchy opacities are noted at the lung bases, likely related to atelectasis. No definite pneumothorax is noted. EKG 30-NSR EKG 6/30-NSR with PVCs HsTnT- 79>80>89 BNP is 615 ECHO 6/7 with EF of 55% ECHO 7/3: - The left ventricle is normal in size. Left ventricular systolic function is normal. EF = 55 5% (visual est.) - Aortic sclerosis. - Exam was compared with the prior [facility] echocardiographic exam performed on 09/21/2024. Right pleural effusion seen. Plan: continue to monitor tessalon perles TID for coughing robitussin as needed for coughing Assessment & Plan (10/24/2024 4:53 PM EDT): Assessment: CXR 6/30 Moderate right pleural effusion is noted, possibly redistributed. Also noted is small left pleural effusion. There is central pulmonary venous congestion without overt edema. Patchy opacities are noted at the lung bases, likely related to atelectasis. No definite pneumothorax is noted. EKG 30-NSR EKG 6/30-NSR with PVCs HsTnT- 79>80>89 BNP is 615 ECHO 6/7 with EF of 55% ECHO 7/3: - The left ventricle is normal in size. Left ventricular systolic function is normal. EF = 55 5% (visual est.) - Aortic sclerosis. - Exam was compared with the prior CC echocardiographic exam performed on 09/21/2024. Right pleural effusion seen. Plan: continue to monitor tessalon perles TID for coughing robitussin as needed for coughing Assessment & Plan (10/23/2024 11:07 AM EDT): Assessment: CXR 6/30 Moderate right pleural effusion is noted, possibly redistributed. Also noted is small left pleural effusion. There is central pulmonary venous congestion without overt edema. Patchy opacities are noted at the lung bases, likely related to atelectasis. No definite pneumothorax is noted. EKG 630-NSR EKG 6/30-NSR with PVCs HsTnT- 79>80>89 BNP is 615 ECHO 6/7 with EF of 55% ECHO 7/3: - The left ventricle is normal in size. Left ventricular systolic function is normal. EF = 55 5% (visual est.) - Aortic sclerosis. - Exam was compared with the prior CC echocardiographic exam performed on 09/21/2024. Right pleural effusion seen. Plan: continue to monitor tessalon perles TID for coughing robitussin as needed for coughing Assessment & Plan (10/22/2024 4:35 PM EDT): Assessment: CXR 6/30 Moderate right pleural effusion is noted, possibly redistributed. Also noted is small left pleural effusion. There is central pulmonary venous congestion without overt edema. Patchy opacities are noted at the lung bases, likely related to atelectasis. No definite pneumothorax is noted. EKG 30-NSR EKG 630-NSR with PVCs HsTnT- 79>80>89 BNP is 615 ECHO 6/7 with EF of 55% ECHO 7/3: - The left ventricle is normal in size. Left ventricular systolic function is normal. EF = 55 5% (visual est.) - Aortic sclerosis. - Exam was compared with the prior CC echocardiographic exam performed on 09/21/2024. Right pleural effusion seen. Plan: continue to monitor tessalon perles TID for coughing robitussin as needed for coughing Assessment & Plan (10/21/2024 4:16 PM EDT): Assessment: CXR 6/30 Moderate right pleural effusion is noted, possibly redistributed. Also noted is small left pleural effusion. There is central pulmonary venous congestion without overt edema. Patchy opacities are noted at the lung bases, likely related to atelectasis. No definite pneumothorax is noted. EKG 30-NSR EKG 6/30-NSR with PVCs HsTnT- 79>80>89 BNP is 615 ECHO 6/7 with EF of 55% ECHO 7/3: - The left ventricle is normal in size. Left ventricular systolic function is normal. EF = 55 5% (visual est.) - Aortic sclerosis. - Exam was compared with the prior CC echocardiographic exam performed on 09/21/2024. Right pleural effusion seen. Plan: continue to monitor tessalon perles TID for coughing robitussin as needed for coughing Assessment & Plan (10/20/2024 11:04 AM EDT): Assessment: CXR 6/30 Moderate right pleural effusion is noted, possibly redistributed. Also noted is small left pleural effusion. There is central pulmonary venous congestion without overt edema. Patchy opacities are noted at the lung bases, likely related to atelectasis. No definite pneumothorax is noted. EKG 30-NSR EKG 630-NSR with PVCs HsTnT- 79>80>89 BNP is 615 ECHO 6/7 with EF of 55% ECHO 3: - The left ventricle is normal in size. Left ventricular systolic function is normal. EF = 55 5% (visual est.) - Aortic sclerosis. - Exam was compared with the prior CC echocardiographic exam performed on 09/21/2024. Right pleural effusion seen. Plan: continue to monitor tessalon perles TID for couging robitussin as needed for coughing Assessment & Plan (10/19/2024 12:50 PM EDT): Assessment: CXR 6/30 Moderate right pleural effusion is noted, possibly redistributed. Also noted is small left pleural effusion. There is central pulmonary venous congestion without overt edema. Patchy opacities are noted at the lung bases, likely related to atelectasis. No definite pneumothorax is noted. EKG 6/30-NSR EKG 630-NSR with PVCs HsTnT- 79>80>89 BNP is 615 ECHO 6/7 with EF of 55% ECHO 3: - The left ventricle is normal in size. Left ventricular systolic function is normal. EF = 55 5% (visual est.) - Aortic sclerosis. - Exam was compared with the prior CC echocardiographic exam performed on 09/21/2024. Right pleural effusion seen. Plan: continue to monitor tessalon perles TID for couging robitussin as needed for coughing Assessment & Plan (10/18/2024 11:03 AM EDT): Assessment: CXR 6/30 Moderate right pleural effusion is noted, possibly redistributed. Also noted is small left pleural effusion. There is central pulmonary venous congestion without overt edema. Patchy opacities are noted at the lung bases, likely related to atelectasis. No definite pneumothorax is noted. EKG 30-NSR EKG 630-NSR with PVCs HsTnT- 79>80>89 BNP is 615 ECHO 6/7 with EF of 55% ECHO 7/: - The left ventricle is normal in size. Left ventricular systolic function is normal. EF = 55 5% (visual est.) - Aortic sclerosis. - Exam was compared with the prior echocardiographic exam performed on 09/21/2024. Right pleural effusion seen. Plan: continue to monitor tessalon perles TID for couging robitussin as needed for coughing Assessment & Plan (10/17/2024 11:44 AM EDT): Assessment: CXR 6/30 Moderate right pleural effusion is noted, possibly redistributed. Also noted is small left pleural effusion. There is central pulmonary venous congestion without overt edema. Patchy opacities are noted at the lung bases, likely related to atelectasis. No definite pneumothorax is noted. EKG 30-NSR EKG 30-NSR with PVCs HsTnT- 79>80>89 BNP is 615 ECHO 6/7 with EF of 55% Plan: continue to monitor tessalon perles TID for couging robitussin as needed for coughing repeat ECHO (ordered) Assessment & Plan (10/16/2024 12:36 PM EDT): Assessment: CXR 6/30 Moderate right pleural effusion is noted, possibly redistributed. Also noted is small left pleural effusion. There is central pulmonary venous congestion without overt edema. Patchy opacities are noted at the lung bases, likely related to atelectasis. No definite pneumothorax is noted. EKG 30-NSR EKG 30-NSR with PVCs HsTnT- 79>80>89 BNP is 615 ECHO 6/7 with EF of 55% Plan: continue to monitor tessalon perles TID for couging robitussin as needed for coughing repeat ECHO Assessment & Plan (10/15/2024 3:52 PM EDT): Assessment: CXR 10/14 Moderate right pleural effusion is noted, possibly redistributed. Also noted is small left pleural effusion. There is central pulmonary venous congestion without overt edema. Patchy opacities are noted at the lung bases, likely related to atelectasis. No definite pneumothorax is noted. EKG 10/14-NSR EKG 10/14-NSR with PVCs HsTnT- 79>80>89 BNP is 615 ECHO 6/7 with EF of 55% Plan: continue to monitor tessalon perles TID for couging robitussin as needed for coughing repeat ECHO Diarrhea 10/08/2024 10/20/2024 Assessment & Plan (10/22/2024 4:36 PM EDT): Assessment: diarrhea improved, attributing to parainfluenza stool pathogen, O+P negative Diarrhea resolved Plan: monitor bowel movements Assessment & Plan (10/21/2024 4:17 PM EDT): Assessment: diarrhea improved, attributing to parainfluenza stool pathogen, O+P negative Diarrhea resolved Plan: monitor bowel movements Assessment & Plan (10/20/2024 11:03 AM EDT): Assessment: diarrhea continues, attributing to parainfluenza stool pathogen, O+P negative Diarrhea resolved Plan: monitor bowel movements Assessment & Plan (10/19/2024 12:50 PM EDT): Assessment: diarrhea continues, attributing to parainfluenza stool pathogen, O+P negative Plan: monitor bowel movements Assessment & Plan (10/18/2024 11:02 AM EDT): Assessment: diarrhea continues, attributing to parainfluenza stool pathogen, O+P negative Plan: monitor bowel movements Assessment & Plan (10/17/2024 11:43 AM EDT): Assessment: diarrhea continues, attributing to parainfluenza stool pathogen, O+P negative Plan: monitor bowel movements Assessment & Plan (10/16/2024 12:37 PM EDT): Assessment: diarrhea continues, attributing to parainfluenza stool pathogen, O+P negative Plan: monitor bowel movements Assessment & Plan (10/15/2024 4:09 PM EDT): Assessment: diarrhea continues, attributing to parainfluenza stool pathogen negative Plan: monitor bowel movements F/u Ova/parasites pending (c diff not sent, sample not appropriate) Assessment & Plan (10/14/2024 4:43 PM EDT): Assessment: diarrhea improving, attributing to parainfluenza stool pathogen negative Plan: monitor bowel movements F/u Ova/parasites pending (c diff not sent, sample not appropriate) Assessment & Plan (10/13/2024 8:40 AM EDT): Assessment: diarrhea improving, attributing to parainfluenza Plan: monitor bowel movements F/u Ova/parasites, stool panel- pending (c diff not sent, sample not appropriate) Assessment & Plan (10/12/2024 2:01 PM EDT): Assessment: diarrhea improving, attributing to parainfluenza Plan: monitor bowel movements check Ova/parasites, stool panel and c diff (sample not appropriate and not sent) Assessment & Plan (10/11/2024 3:37 PM EDT): Assessment: diarrhea improved Plan: monitor bowel movements check Ova/parasites, stool panel and c diff Assessment & Plan (10/10/2024 5:01 PM EDT): Assessment: diarrhea improved Plan: monitor bowel movements check Ova/parasites, stool panel and c diff Assessment & Plan (10/09/2024 4:50 PM EDT): Assessment: continues with diarrhea Plan: monitor bowel movements check Ova/parasites, stool panel and c diff Assessment & Plan (10/08/2024 4:45 PM EDT): Assessment: increased diarrhea reported Plan: monitor bowel movements check Ova/parasites, stool panel and c diff Acute postoperative respiratory insufficiency 09/10/19 25 09/25/2024 Assessment & Plan (09/28/2024 4:20 PM EDT): On room air No respiratory complaints Plan: - Monitor respiratory status - Supplemental oxygen as needed - Pulmonary hygiene: IS, OOB, deep breathing - See pleural effusion Assessment & Plan (09/24/2024 11:46 AM EDT): On room air No respiratory complaints Plan: - Monitor respiratory status - Supplemental oxygen as needed - Pulmonary hygiene: IS, OOB, deep breathing - See pleural effusion Assessment & Plan (09/23/2024 11:47 AM EDT): On room air No respiratory complaints Plan: - Monitor respiratory status - Supplemental oxygen as needed - Pulmonary hygiene: IS, OOB, deep breathing - See pleural effusion Assessment & Plan (09/22/2024 12:41 PM EDT): On room air No respiratory complaints Plan: - Monitor respiratory status - Supplemental oxygen as needed - Pulmonary hygiene: IS, OOB, deep breathing - See pleural effusion Assessment & Plan (09/21/2024 2:22 PM EDT): On room air No respiratory complaints Plan: - Monitor respiratory status - Supplemental oxygen as needed - Pulmonary hygiene: IS, OOB, deep breathing - See pleural effusion Assessment & Plan (09/20/2024 6:15 PM EDT): On room air No respiratory complaints Plan: - Monitor respiratory status - Supplemental oxygen as needed - Pulmonary hygiene: IS, OOB, deep breathing - See pleural effusion Assessment & Plan (09/19/2024 8:39 AM EDT): On room air No respiratory complaints Plan: - Monitor respiratory status - Supplemental oxygen as needed - Pulmonary hygiene: IS, OOB, deep breathing - See pleural effusion Assessment & Plan (09/18/2024 10:36 AM EDT): On room air No respiratory complaints Plan: - Monitor respiratory status - Supplemental oxygen as needed - Pulmonary hygiene: IS, OOB, deep breathing - See pleural effusion Assessment & Plan (09/17/2024 1:27 PM EDT): On room air No respiratory complaints Plan: - Monitor respiratory status - Supplemental oxygen as needed - Pulmonary hygiene: IS, OOB, deep breathing - See pleural effusion Assessment & Plan (09/16/2024 3:20 PM EDT): On room air No respiratory complaints Plan: - Monitor respiratory status - Supplemental oxygen as needed - Pulmonary hygiene: IS, OOB, deep breathing - See pleural effusion Assessment & Plan (09/13/2024 2:07 PM EDT): On room air No respiratory complaints Plan: - Monitor respiratory status - Supplemental oxygen as needed - Pulmonary hygiene: IS, OOB, deep breathing - See pleural effusion PERLITA (acute kidney injury) 08/27/2024 Assessment & Plan (10/10/2024 5:00 PM EDT): Assessment: creatinine 1.21 UOP last 24 hours 2300cc Plan: monitor renal function monitor urine output Assessment & Plan (10/09/2024 4:50 PM EDT): Assessment: creatinine 1.38 UOP last 24 hours 1800cc Plan: monitor renal function monitor urine output Assessment & Plan (10/08/2024 4:44 PM EDT): Assessment: creatinine 1.30 UOP last 24 hours not saved Plan: monitor renal function monitor urine output Encounters Date Type Department Care Team Description 11/18/2024 Telephone Transplant Center [address] [phone] Coordinator, Liver Txp Return Call Request 11/18/2024 Telephone Transplant Center [address] [address] Carina Ziegler RN f/u dc phone call 11/15/2024 Patient Update Infectious Disease [address] [phone] Dana Nicholson MD CoPat Stop 11/14/2024 2:30 PM EDT [facility] Infectious Disease [address] [phone] Dana Nicholson MD VRE infection (vancomycin resistant Enterococcus) (Primary Dx) 11/13/2024 2:42 PM EDT Anesthesia Event Gastroenterology [address] [phone] Tristan Cardona MD 11/13/2024 1:00 PM EDT - 11/13/2024 11:59 PM EDT Hospital Encounter Gastroenterology [address] [phone] Jane Correia MD 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, 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] Discharge Disposition: Home 11/13/2024 Orders Only Gastroenterology [address] [address] Jane Correia MD 11/13/2024 Orders Only Gastroenterology [address] [address] Jane Correia MD Bile duct stricture (HCC) (Primary Dx) 11/13/2024 Telephone [facility] Home Delivery - Compliance [facility] [phone] Ceci Felix RPh 11/12/2024 Travel 11/12/2024 Refill Transplant Center [address] [address] Carina Ziegler RN 11/11/2024 Telephone Gastroenterology [address] [phone] Oksana Fatima RN Cushion Sewer - Other 11/10/2024 Lab Requisition [facility] Laboratory [address] [place] [address] Chelsea Trinidad MD 11/08/2024 Lab Requisition [facility] [address] [id number] Betty Dias DO 11/07/2024 Patient Update Infectious Disease [address] [phone] Say Maldonado, [facility] CoPat Management (Lab review) 11/06/2024 GI Preprocedure Call Gastroenterology [address] [phone] Raquel Rodrigues RN 11/06/2024 [facility] Transplant [facility] [address] [place], [place] [address] Carina Ziegler, LEO Appt 11-1311/05/2024 Orders Only Transplant Center [address] [place], [place] [address] Carina Ziegler RN 11/05/2024 Orders Only Transplant Center [address] [place], [place] 5857[address] Carina Ziegler, LEO Disorder of liver (Primary Dx); Vertigo; Biliary stricture of transplanted liver (HCC); Biliary stone of transplanted liver (HCC); Liver replaced by transplant (HCC) 11/03/2024 Lab Requisition [facility] [address] [id number] Luís Bobby MD 10/31/2024 Results Follow-Up Transplant Center [address] [place], [place] [phone] Eva Dhillon RN 10/31/2024 Patient Update Infectious Disease [address] [phone] Say Maldonado, [facility] 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; CoPat Agency 10/30/2024 7:01 PM EDT - 11/15/2024 1:51 PM EDT Hospital Encounter [address] [address] David Cruz DO 10/28/2024 Telephone Gastroenterology [address] [phone] Connie Garg MD Patient Update 10/23/2024 Patient Update [facility] [address] [phone] Dana Nicholson MD CoPat Start 10/18/2024 Patient [facility] Transplant Center [address] [place], [place] [phone] Carina Ziegler, LEO Out of the office... 10/17/2024 1:38 PM EDT - 10/17/2024 3:28 PM EDT Surgery Angio [address] [phone] Everton Julio MD PERCUTANEOUS IMAGE-GUIDED FLUID COLLECTION DRAINAGE BY CATHETER (EG, ABSCESS, HEMATOMA, SEROMA, LYMPHOCELE, CYST); PERITONEAL OR RETROPERITONEAL 10/15/2024 3:58 PM EDT Anesthesia Event Gastroenterology [address] [phone] Renee Barry MD 10/14/2024 3:30 PM EDT - 10/14/2024 4:30 PM EDT Surgery Admitting [facility] [phone] Nilay Villatoro MD THORACENTESIS NEEDLE OR CATHETER ASPIRATION OF THE PLEURAL SPACE W IMAGING GUIDANCE 10/11/2024 Results Follow-Up Transplant Center [address] [place], [place] [phone] Carina Ziegler RN 10/10/2024 Patient [facility] Transplant Center [address] [place], [place] [phone] Carina Ziegler RN out of the office for the rest of the day... 10/09/2024 Patient [facility] INITIAL DEPARTMENT [facility] [address] Provider, Ccf Actionable Imaging Result Notification Patient Outreach 10/07/2024 8:22 PM EDT - 10/30/2024 7:08 PM EDT Hospital Encounter HOSP MAIN G101 [address] [place] [address] Mateo Tiwari MD Khalil, Mazhar, MD Kim, Jaekeun, MD, PhD Burton Quezada MD Shortness of breath [R06.02] Discharge Disposition: Acute Rehab (IRF) 10/07/2024 2:18 PM EDT - 10/07/2024 8:21 PM EDT Hospital Encounter [facility] [place] Scan [address] [place] [address] Discharge Disposition: Home 10/07/2024 2:00 PM EDT - 10/07/2024 2:17 PM EDT Hospital Encounter [facility] [place] Scan [address] [place] [address] Discharge Disposition: Home 10/07/2024 Patient Update Transplant Center [address] [phone] Kathy Ryan, COLLAR POINTER.SPORTS EQUIPMENT REPAIRER 10/07/2024 Travel 10/06/2024 Lab Requisition [facility] [address] [place] [address] Luís Bobby MD 10/06/2024 Lab Requisition [facility] [address] [place] [address] Luís Bobby MD 10/03/2024 Telephone Transplant Center [address] [phone] Coordinator, Liver Txp Return Call Request 10/02/2024 Get Medical Advice Transplant Center [address] [place], [place] [address] Sonido Nava MD Sutures 10/02/2024 Lab Requisition [facility] [address] [place] [address] Chelsea Trinidad MD 10/01/2024 Abstract Transplant Center [address] [place], [place] [phone] Kathy Ryan, COLLAR POINTER.SPORTS EQUIPMENT REPAIRER Liver Pathology Review; HCC Pony Score 10/01/2024 Patient Msg Gastroenterology [address] [phone] Provider, Ccf Dr. Khan letter 10/01/2024 Results Follow-Up Transplant Center [address] [place], [place] [address] Carina Ziegler RN 10/01/2024 Refill Transplant Center [address] [place], [place] [address] Shelli Boo APRN.SPORTS EQUIPMENT REPAIRER 09/29/2024 5:17 PM EDT - 10/07/2024 7:51 PM EDT Hospital Encounter [address] [address] David Cruz DO 09/18/2024 Telephone Transplant Center [address] [phone] Carina Ziegler RN dc ed scheduling 09/10/2024 Patient Msg Transplant Center [address] [phone] Eva Dhillon, LEO New Liver Precision Filer Hand 09/10/2024 Abstract Transplant Center [address] [phone] Jadyn Murphy RN Transplant Serologies 09/09/2024 8:38 AM EDT Anesthesia Event Admitting [address] [phone] Judy Kraft MD Brunell, Benjamin, MD 09/09/2024 8:00 AM EDT - 09/09/2024 6:34 PM EDT Surgery Admitting [address] [phone] Sonido Nava MD TRANSPLANT LIVER ORTHOTOPIC WHOLE 09/08/2024 Telephone Transplant Center [address] [phone] Virginia Belvins, MARKELL 09/06/2024 Orders Only Gastroenterology [address] [phone] Kathy Vaughn, TALA.SPORTS EQUIPMENT REPAIRER Other ascites (Primary Dx) 09/06/2024 Telephone Transplant Center [address] [phone] Yesica Bright, LEO Meld Score Update 09/04/2024 Telephone Transplant Center [address] [address] Yesica Bright, LEO OLT UNOS listing pt notification 09/04/2024 Results Follow-Up Gastroenterology [address] [phone] Giana Turner MD 09/02/2024 11:33 AM EDT Anesthesia Event Gastroenterology [address] [phone] Darwin Meyers MD 09/02/2024 Orders Only Transplant Center [address] [address] Yesica Bright, LEO Liver transplant candidate; Alcoholic cirrhosis of liver with ascites (HCC) 09/02/2024 Telephone Transplant Center [address] [place] [address] Yesica Bright RN 09/02/2024 Orders Only ICU Hosp [address] [phone] Purnima Art MD Hepatocellular carcinoma (HCC) (Primary Dx) 08/31/2024 8:51 AM EDT Anesthesia Event Gastroenterology [address] [address] Behzad Aguero MD 08/31/2024 Travel 08/29/[address] [address] Yesica Bright, LEO OLT selection mtg pt notification 08/28/2024 1:00 PM EDT Office Visit Dentistry [address] [phone] Venus Aden DMD Hepatic encephalopathy (HCC) (Primary Dx); Decompensated cirrhosis (HCC); Pre-operative clearance 08/27/2024 11:15 AM EDT Social Work Transplant Center [address] [place] [address] Lis Larsen LISW 08/27/2024 Abstract Transplant Center [address] [place] [address] Araceli Headley RPh 08/27/2024 Telephone Transplant Center [address] [place] [address] Yesica Bright RN Informed Consent (91); Patient Education 08/27/2024 Orders Only Transplant Center [address] [place] [address] Coordinator, Liver Txp Laennec's cirrhosis (HCC) (Primary Dx) 08/26/2024 Orders Only ICU Hosp [address] [place] [address] Purnima Art MD Alcoholic cirrhosis of liver with ascites (HCC) (Primary Dx); Hepatocellular carcinoma (HCC) 08/26/2024 Orders Only Gastroenterology [address] [phone] Raquel Black PA-C Other ascites (Primary Dx) 08/24/2024 Get Medical Advice Gastroenterology [address] [phone] Connie Garg MD [facility]er is in [facility] 08/23/2024 12:44 PM EDT - 09/29/2024 5:23 PM EDT Hospital Encounter HOSP MAIN G101 [address] [place] [address] Ems, MD Joseph Dhillon, MD Kanu Davis, MD Alexandria Monge, MD Ailyn Clifton Ajit, MD Lindenmeyer, Christina, MD Awoniyi, MD Gómez Mosqueda, MD Jocelyn Armando, MD Tyler Banegas, MD Steffen Hepatic encephalopathy (HCC) [K76.82] Discharge Disposition: Acute Rehab (IRF) 08/23/2024 Travel 08/22/2024 3:25 PM EDT Tumor Board Tumor Board [address] [place] [address] Liver Tumor Board 08/22/2024 Orders Only Gastroenterology [address] [phone] Connie Garg MD Abnormal bone scan of thoracic spine (Primary Dx) 08/22/2024 Telephone Gastroenterology [address] [phone] Connie Garg MD Patient Update 08/20/2024 GI Preprocedure Call Gastroenterology [address] [phone] Rosalba Zhu RN 08/20/2024 Results Follow-Up Transplant Center [address] [address] Connie Garg MD 08/19/2024 Get Medical Advice Radiation Oncology [address] [phone] Sarwat Harris MD Back pain from Last 3 Months Immunizations Immunization Administration Dates Next Due hepatitis A (HepA) vaccine, adult (HAVRIX, VAQTA) 08/28/2024,05/02/2024 hepatitis B (HepB-CpG) vacci ne, adult, 2-dose series (HEPLISAV-B) 08/28/2024,05/02/2024 influenza (HD-IIV3) vaccine, age 65+ yr, high dose, trivalent, PF (FLUZONE HIGH-DOSE) 03/04/2024,02/01/2022,02/17/2021 influenza (IIV3) vaccine, ag e 6 mo - 64 yr, trivalent (AFLURIA, FLULAVAL, FLUVIRIN, FLUZONE) 02/01/2016,02/10/2015,01/14/2014 influenza (IIV4) vaccine, ag e 6 mo - 64 yr, quadrivalent (AFLURIA, FLULAVAL, FLUZONE) 02/10/2019,02/13/2017 influenza (IIV4) vaccine, ag e 6 mo - 64 yr, quadrivalent, PF (AFLURIA, FLUARIX, FLULAVAL, FLUZONE) 02/10/2019 influenza (IIV4) vaccine, quadrivalent (AFLURIA, FLULAVAL, FLUZONE) 01/17/2017 influenza (aIIV4) vaccine, a ge 65+ yr, quadrivalent, PF (FLUAD QUAD) 01/24/2023 influenza vaccine, unspecifi ed formulation 01/24/2023,02/01/2022,02/17/2021,2012 pneumococcal conjugate (PCV2 0) vaccine, 20 valent (PREVNAR 20) 03/04/2024 respiratory syncytial virus (RSV) vaccine, adjuvanted (AREXVY) 06/10/2024 tetanus diphtheria pertussis (Tdap) vaccine, age 7+ yr (ADACEL, BOOSTRIX) 03/22/2022 zoster (RZV) vaccine, recomb inant (SHINGRIX) 04/30/2022 zoster (ZVL) vaccine, live (ZOSTAVAX) 03/24/2015 Family History Medical History Relation Comments Coronary Artery Disease Father Heart Failure Father Hypertension Father COPD Mother Coronary Artery Disease Mother Emphysema Mother Hypertension Mother None Sister Relation Status Comments Father Alive Mother Sister Social History Tobacco Use Types Packs/Day Years Used Date Smoking Tobacco: Former Cigarettes 1 20 1 04/20/1970 - 02/18/1991 Smokeless Tobacco: Never Tobacco Cessation:Counseling Given: Not Answered Alcohol Use Standard Drinks/Week Comments Not Currently 0 (1 standard drink = 0.6 oz pur e alcohol) Recovering alcoholic [facility] Utilities Answer Date Recorded In the past 12 months has th e [place] Toxicology, gas, oil, or water company threatened to [...] is lower risk 7 04/25/2024 Data from: https://www.neighborhoodatlas.medicine.[facility].edu/. Last address used for calculation [...] file Not on file Not on file Last Filed Vital Signs Vital Sign Reading [...] Mass Index 22.15 11/13/2024 2:26 PM EDT Plan of Treatment Upcoming Encounters Date Type Department Care Team (Late st Contact Info) Description 11/21/2024 4:00 PM EDT Office Visit Transplant Center [address] [phone] [place] LASHAWN ARELLANO 11/21/2024 5:40 PM EDT Appointment MRI Q [address] [address] Compression fracture of cervical spine, non-traumatic, with delayed healing, subsequent encounter [M48.52XG] 11/21/2024 6:20 PM EDT Appointment MRI Q [address] [address] Compression fracture of cervical spine, non-traumatic, with delayed healing, subsequent encounter [M48.52XG] 11/21/2024 7:00 PM EDT Appointment MRI Q [address] [address] Compression fracture of cervical spine, non-traumatic, with delayed healing, subsequent encounter [M48.52XG] 02/03/2025 9:00 AM EDT [facility] Neurology [address] [place] [address] Devyn Roach MD [address] [place] [address] Vertigo [R42] 02/10/2025 11:00 AM EDT Appointment Gastroenterology [address] [phone] Jane Correia MD [address] [place] [address] Schedule in about 3 months to remove biliary stent Health Maintenance Due Date Last Done Comments Abdominal Aortic Aneurysm Screening 1955 Annual PCP Team Chronic Dise ase Visit 08/03/1971 Anxiety Screening 08/03/1971 Depression Screening 08/03/1971 CT Colonography 1998 Cologuard (FIT-DNA) 1998 Fecal Occult Blood 1998 Shingrix Vaccine (2 of 2) 06/25/2022 04/30/2022, 11/2014 Advance Directive Discussion 04/17/2024 Medicare Advantage Annual We llness Visit 04/17/2024 Influenza Vaccine (#1) 2024 , 01/24/2023, 01/24/2023, Additional history exists Hepatitis A Vaccine (3 of 3 - Hep A Twinrix risk 3-dose series) 01/28/2025 08/28/2024, 05/02/2024 Hemoglobin/Hematocrit 11/18/2025 11/18/2024 , 11/15/2024, 11/14/2024, Additional history exists Serum Creatinine 11/18/2025 11/18/2024, 04/2024, 11/15/2024, Additional history exists Diabetes Screening 11/19/2027 11/18/2024, 0 11/15/2024, 11/15/2024, Additional history exists Lipid Screening 04/29/2029 04/29/2024, 11/0 08/2023, 04/28/2016, Additional history exists Colonoscopy 08/31/2029 08/31/2024, 07/17, 08/12/2014, Additional history exists Colorectal Cancer Screening 08/31/2029 Sigmoidoscopy 09/02/2029 09/02/2024 DTaP,Tdap,Td Vaccine (2 - Td or Tdap) 03/22/2032 03/22/2022 Pneumococcal Vaccine: 50+ Completed 03/04/2024 RSV Vaccine Completed 06/10/2024 Hepatitis C Screening Completed 10/15/2024 , 09/08/2024, 09/08/2024, Additional history exists Goals Goal Patient Goal Type Associated Problems Recent Progress Patient-Stated? Author Blood Pressure < 130/80 Blood Pressure 122/80( 025 5:30 PM EDT) No Vanessa Arora MD Medical Devices Implanted Type Area Channel Marketing Specialist Device Identifier Shelf Expiration Date Model / Serial / Lot Mesh Srg Parietex 15cm Vntrl - [id number] Implanted:Qty: 1 on 03/04/2014 at [facility] Mesh N/A: Umbilical COVIDIEN [employer]SC 06/04/2018 [id number] / / [id number] Description:parietex composi te mesh Screw Screw Right: Bone - Elbow Stent Rougon Viabil 10mm Metal 100mm 200cm Endoprosthesis No Hole Full Cover - [id number] Implanted:Qty: 1 on 10/15/2024 at [facility] Stent [employer] [id number] / / Description:Static magnetic field of 1.5 and 3.0 Rosita Maximum spatial gradient of 3,000 Gauss/cm Maximum MR system reported, whole body averaged specific absorption rate (MARTA) of 4 W/kg Procedures Procedure Name Priority Date/Time Associated Diagnosis Comments PHOSPHORUS INORGANIC Routine 11/18/2024 8:44 AM EDT Disorder of liver Liver replaced by transplant (HCC) MAGNESIUM BLD Routine 11/18/2024 8:44 AM EDT Disorder of liver Liver replaced by transplant (HCC) COMPREHENSIVE METABOLIC PANEL Routine 11/18/2024 8:44 AM EDT Disorder of liver Liver replaced by transplant (HCC) CBC + DIFF Routine 11/18/2024 8:44 AM EDT Disorder of liver Liver replaced by transplant (HCC) PATH INTERP CBCDIF (LAB REFLEX ORDER-NO BILL) Routine 11/15/2024 5:30 AM EDT STAFF REVIEW Routine 11/15/2024 5:30 AM EDT PHOSPHORUS INORGANIC Routine 11/15/2024 5:30 AM EDT COMPREHENSIVE METABOLIC PANEL Routine 11/15/2024 5:30 AM EDT CBC + DIFF Routine 11/15/2024 5:30 AM EDT MAGNESIUM BLD Routine 11/15/2024 5:30 AM EDT MAGNESIUM BLD Routine 11/14/2024 3:30 AM EDT GGT BLD Routine 11/14/2024 3:30 AM EDT C-REACTIVE PROTEIN (CRP) Routine 025 3:30 AM EDT COMPREHENSIVE METABOLIC PANEL Routine 11/14/2024 3:30 AM EDT CBC + DIFF Routine 11/14/2024 3:30 AM EDT NT PRO BNP Routine 11/14/2024 3:30 AM EDT TACROLIMUS/FK-506 BL Routine 11/14/2024 3:30 AM EDT PHOSPHORUS INORGANIC Routine 11/14/2024 3:30 AM EDT INTUBATION Routine 11/13/2024 2:45 PM EDT ERCP Routine 11/13/2024 1:11 PM EDT MAGNESIUM BLD Routine 11/11/2024 5:06 AM EDT GGT BLD Routine 11/11/2024 5:06 AM EDT C-REACTIVE PROTEIN (CRP) Routine 025 5:06 AM EDT COMPREHENSIVE METABOLIC PANEL Routine 11/11/2024 5:06 AM EDT CYTOMEGALOVIRUS (CMV) DNA, QUANTITATIVE PCR, PLASMA Routine 11/11/2024 5:06 AM EDT CBC + DIFF Routine 11/11/2024 5:06 AM EDT NT PRO BNP Routine 11/11/2024 5:06 AM EDT TACROLIMUS/FK-506 BL Routine 11/11/2024 5:06 AM EDT PHOSPHORUS INORGANIC Routine 11/11/2024 5:06 AM EDT RENAL FUNCTION PANEL Routine 11/09/2024 6:05 AM EDT MAGNESIUM BLD Routine 11/09/2024 6:05 AM EDT URINALYSIS, REFLEX MICROSCOPIC Routine 11/08/2024 6:23 PM EDT US KIDNEY/BLADDER 11/08/2024 1:0 0 PM EDT PHOSPHORUS INORGANIC Routine 11/08/2024 5:21 AM EDT ALBUMIN BLD Routine 11/08/2024 5:21 AM EDT BASIC METABOLIC PANEL Routine 11/08/2024 5:21 AM EDT MAGNESIUM BLD Routine 11/08/2024 5:21 AM EDT XR ABDOMEN 1V SUPINE 11/07/2024 2:24 PM EDT MAGNESIUM BLD Routine 11/07/2024 10:56 AM EDT GGT BLD Routine 11/07/2024 10:56 AM EDT C-REACTIVE PROTEIN (CRP) Routine 025 10:56 AM EDT COMPREHENSIVE METABOLIC PANEL Routine 11/07/2024 10:56 AM EDT CBC + DIFF Routine 11/07/2024 10:56 AM EDT NT PRO BNP Routine 11/07/2024 10:56 AM EDT TACROLIMUS/FK-506 BL Routine 11/07/2024 10:56 AM EDT PHOSPHORUS INORGANIC Routine 11/07/2024 10:56 AM EDT US ABDOMEN LTD 11/06/2024 3:45 PM EDT XR LUMBAR 1V 11/04/2024 3:30 PM EDT CK CREATINE KINASE Routine 11/04/2024 5: 10 AM EDT MAGNESIUM BLD Routine 11/04/2024 5:10 AM EDT GGT BLD Routine 11/04/2024 5:10 AM EDT C-REACTIVE PROTEIN (CRP) Routine 025 5:10 AM EDT COMPREHENSIVE METABOLIC PANEL Routine 11/04/2024 5:10 AM EDT CYTOMEGALOVIRUS (CMV) DNA, QUANTITATIVE PCR, PLASMA Routine 11/04/2024 5:10 AM EDT CBC + DIFF Routine 11/04/2024 5:10 AM EDT NT PRO BNP Routine 11/04/2024 5:10 AM EDT TACROLIMUS/FK-506 BL Routine 11/04/2024 5:10 AM EDT PHOSPHORUS INORGANIC Routine 11/04/2024 5:10 AM EDT US ABDOMEN LTD 11/03/2024 1:28 PM EDT RENAL FUNCTION PANEL Routine 11/03/2024 5:05 AM EDT MAGNESIUM BLD Routine 11/03/2024 5:05 AM EDT CBC + DIFF Routine 11/02/2024 6:40 AM EDT MAGNESIUM BLD Routine 11/02/2024 6:40 AM EDT RENAL FUNCTION PANEL Routine 11/02/2024 6:40 AM EDT XR CHEST 1V FRONTAL 11/01/2024 2 :39 PM EDT NT PRO BNP Routine 11/01/2024 5:01 AM EDT VITAMIN B12 BLOOD Routine 11/01/2024 5:0 1 AM EDT FOLATE SERUM Routine 11/01/2024 5:01 AM EDT FERRITIN BLD Routine 11/01/2024 5:01 AM EDT IRON + TIBC Routine 11/01/2024 5:01 AM EDT CBC + DIFF Routine 11/01/2024 5:01 AM EDT RENAL FUNCTION PANEL Routine 11/01/2024 5:01 AM EDT MAGNESIUM BLD Routine 11/01/2024 5:01 AM EDT NT PRO BNP Routine 10/31/2024 4:52 AM EDT PHOSPHORUS INORGANIC Routine 10/31/2024 4:52 AM EDT TACR[facility]IM[facility]/FK-506 BL Routine 10/31/2024 4:52 AM EDT C-REACTIVE PROTEIN (CRP) Routine 025 4:52 AM EDT GGT BLD Routine 10/31/2024 4:52 AM EDT MAGNESIUM BLD Routine 10/31/2024 4:52 AM EDT COMPREHENSIVE METABOLIC PANEL Routine 10/31/2024 4:52 AM EDT CBC + DIFF Routine 10/31/2024 4:52 AM EDT BACTERIAL CULTURE AND GRAM STAIN, STERILE BODY FLUID Routine 10/30/2024 1:44 PM EDT Status post liver transplant (HCC) Pleural effusion BACTERIAL CULTURE, TISSUE AND WOUND, ANAEROBIC Routine 10/30/2024 1:44 PM EDT Status post liver transplant (HCC) Pleural effusion BF MANUAL DIFF Routine 10/30/2024 1:44 PM EDT Status post liver transplant (HCC) Pleural effusion BODY FLUID CELL COUNT Routine 10/30/2024 1:44 PM EDT Status post liver transplant (HCC) Pleural effusion US PARACENTESIS (POC) DDI USE ONLY Routine 10/30/2024 1:34 PM EDT TYPE + SCREEN Routine 10/30/2024 5:03 AM EDT [facility]/FK-506 BL Timed Stat 10/30/2024 5:03 AM EDT CBC + DIFF Routine 10/30/2024 5:03 AM EDT PHOSPHORUS INORGANIC Routine 10/30/2024 5:03 AM EDT MAGNESIUM BLD Routine 10/30/2024 5:03 AM EDT COMPREHENSIVE METABOLIC PANEL Routine 10/30/2024 5:03 AM EDT PARACENTESIS/GASTRO Routine 10/30/2024 US DOPPLER COMPLETE Routine 10/29/2024 3 :39 PM EDT US ABD LIVER VASCULAR TRANSPLANT (MC) ADRIANNE 10/29/2024 3:39 PM EDT [facility]/FK-506 BL Timed Stat 10/29/2024 4:28 AM EDT CBC + DIFF Routine 10/29/2024 4:28 AM EDT PHOSPHORUS INORGANIC Routine 10/29/2024 4:28 AM EDT MAGNESIUM BLD Routine 10/29/2024 4:28 AM EDT COMPREHENSIVE METABOLIC PANEL Routine 10/29/2024 4:28 AM EDT TA[facility]/FK-506 BL Timed Stat 10/28/2024 6:21 AM EDT PROTHROMBIN TIME Routine 10/28/2024 6:21 AM EDT CYTOMEGALOVIRUS (CMV) DNA, QUANTITATIVE PCR, PLASMA Routine 10/28/2024 6:21 AM EDT CBC + DIFF Routine 10/28/2024 6:21 AM EDT PHOSPHORUS INORGANIC Routine 10/28/2024 6:21 AM EDT MAGNESIUM BLD Routine 10/28/2024 6:21 AM EDT COMPREHENSIVE METABOLIC PANEL Routine 10/28/2024 6:21 AM EDT [facility]/FK-506 BL Timed Stat 10/27/2024 5:24 AM EDT CBC + DIFF Routine 10/27/2024 5:24 AM EDT PHOSPHORUS INORGANIC Routine 10/27/2024 5:24 AM EDT MAGNESIUM BLD Routine 10/27/2024 5:24 AM EDT COMPREHENSIVE METABOLIC PANEL Routine 10/27/2024 5:24 AM EDT TYPE + SCREEN Routine 10/26/2024 6:18 PM EDT CK CREATINE KINASE Routine 10/26/2024 6: 18 PM EDT RBC TRANSFUSION INSTRUCTION ([place], [place]) Routine 10/26/2024 2:15 PM EDT RED BLOOD CELLS, ADULT Routine 9:15 AM EDT [facility]/FK-506 BL Timed Stat 10/26/2024 3:52 AM EDT CBC + DIFF Routine 10/26/2024 3:52 AM EDT PHOSPHORUS INORGANIC Routine 10/26/2024 3:52 AM EDT MAGNESIUM BLD Routine 10/26/2024 3:52 AM EDT COMPREHENSIVE METABOLIC PANEL Routine 10/26/2024 3:52 AM EDT PROCALCITONIN (LAB) Add-on 10/25/2024 4 :55 AM EDT C-REACTIVE PROTEIN (CRP) Add-on 025 4:55 AM EDT [facility]/FK-506 BL Timed Stat 10/25/2024 4:55 AM EDT CBC + DIFF Routine 10/25/2024 4:55 AM EDT PHOSPHORUS INORGANIC Routine 10/25/2024 4:55 AM EDT MAGNESIUM BLD Routine 10/25/2024 4:55 AM EDT COMPREHENSIVE METABOLIC PANEL Routine 10/25/2024 4:55 AM EDT MRI BRAIN WO IVCON Routine 10/24/2024 7: [address] ABD/PEL W IVCON ADRIANNE 10/24/2024 6: 28 PM EDT IR VASCULAR ACCESS TEAM PICC INSERTION RADIO Routine 10/24/2024 11:17 AM EDT [facility]/FK-506 BL Timed Stat 10/24/2024 6:28 AM EDT CBC + DIFF Routine 10/24/2024 6:28 AM EDT PHOSPHORUS INORGANIC Routine 10/24/2024 6:28 AM EDT MAGNESIUM BLD Routine 10/24/2024 6:28 AM EDT COMPREHENSIVE METABOLIC PANEL Routine 10/24/2024 6:28 AM EDT XR ABDOMEN 1V SUPINE STAT 10/24/2024 5:36 AM EDT TYPE + SCREEN Routine 10/23/2024 6:26 AM EDT [facility]/FK-506 BL Timed Stat 10/23/2024 6:26 AM EDT CBC + DIFF Routine 10/23/2024 6:26 AM EDT PHOSPHORUS INORGANIC Routine 10/23/2024 6:26 AM EDT MAGNESIUM BLD Routine 10/23/2024 6:26 AM EDT COMPREHENSIVE METABOLIC PANEL Routine 10/23/2024 6:26 AM EDT TA[facility]/FK-506 BL Timed Stat 10/22/2024 4:44 AM EDT TA[facility]/FK-506 BL Timed Stat 10/22/2024 4:44 AM EDT CBC + DIFF Routine 10/22/2024 4:44 AM EDT PHOSPHORUS INORGANIC Routine 10/22/2024 4:44 AM EDT MAGNESIUM BLD Routine 10/22/2024 4:44 AM EDT COMPREHENSIVE METABOLIC PANEL Routine 10/22/2024 4:44 AM EDT TA[facility]/FK-506 BL Timed Stat 10/21/2024 4:46 AM EDT TA[facility]/FK-506 BL Timed Stat 10/21/2024 4:46 AM EDT PROTHROMBIN TIME Routine 10/21/2024 4:46 AM EDT CYTOMEGALOVIRUS (CMV) DNA, QUANTITATIVE PCR, PLASMA Routine 10/21/2024 4:46 AM EDT CBC + DIFF Routine 10/21/2024 4:46 AM EDT PHOSPHORUS INORGANIC Routine 10/21/2024 4:46 AM EDT MAGNESIUM BLD Routine 10/21/2024 4:46 AM EDT COMPREHENSIVE METABOLIC PANEL Routine 10/21/2024 4:46 AM EDT AMYLASE BLD Routine 10/20/2024 5:25 PM EDT LIPASE BLD Routine 10/20/2024 5:25 PM EDT [facility]/FK-506 BL Timed Stat 10/20/2024 5:25 PM EDT RBC TRANSFUSION INSTRUCTION ([place]) Routine 10/20/2024 12:05 PM EDT RED BLOOD CELLS, ADULT Routine 10:30 AM EDT COMPLETE BLOOD COUNT STAT 10/20/2024 7:41 AM EDT TYPE + SCREEN STAT 10/20/2024 7:29 AM EDT CK CREATINE KINASE Routine 10/20/2024 4: 04 AM EDT [facility]/FK-506 BL Timed Stat 10/20/2024 4:04 AM EDT TA[facility]/FK-506 BL Timed Stat 10/20/2024 4:04 AM EDT CBC + DIFF Routine 10/20/2024 4:04 AM EDT PHOSPHORUS INORGANIC Routine 10/20/2024 4:04 AM EDT MAGNESIUM BLD Routine 10/20/2024 4:04 AM EDT COMPREHENSIVE METABOLIC PANEL Routine 10/20/2024 4:04 AM EDT US DOPPLER COMPLETE Routine 10/19/2024 4 :12 PM EDT US ABD LIVER VASCULAR TRANSPLANT (MC) ADRIANNE 10/19/2024 4:12 PM EDT XR ABDOMEN 1V SUPINE STAT 10/19/2024 2:22 PM EDT COMPLETE BLOOD COUNT STAT 10/19/2024 5:03 AM EDT CBC + DIFF Routine 10/19/2024 4:05 AM EDT TA[facility]/FK-506 BL Timed Stat 10/19/2024 4:05 AM EDT PHOSPHORUS INORGANIC Routine 10/19/2024 4:05 AM EDT MAGNESIUM BLD Routine 10/19/2024 4:05 AM EDT COMPREHENSIVE METABOLIC PANEL Routine 10/19/2024 4:[address] ABDOMEN WO IVCON STAT 10/18/2024 3 :27 PM EDT CBC + DIFF Routine 10/18/2024 4:31 AM EDT TA[facility]/FK-506 BL Timed Stat 10/18/2024 4:31 AM EDT PHOSPHORUS INORGANIC Routine 10/18/2024 4:31 AM EDT MAGNESIUM BLD Routine 10/18/2024 4:31 AM EDT COMPREHENSIVE METABOLIC PANEL Routine 10/18/2024 4:31 AM EDT US IMAGING GUIDED DRAIN PLACEMENT PERITONEAL/RETROPERITD Routine 10/17/2024 5:03 PM EDT BACTERIAL CULTURE AND GRAM STAIN, ABSCESS AND WOUND (AEROBIC CULTURE) Routine 10/17/2024 4:51 PM EDT BACTERIAL CULTURE, TISSUE AND WOUND, ANAEROBIC Routine 10/17/2024 4:51 PM EDT BF MANUAL DIFF Routine 10/17/2024 4:51 PM EDT BODY FLUID CELL COUNT Routine 10/17/2024 4:51 PM EDT IMG-GUIDE FLUID COLLXN DRAINAG CATH PERITON PERQ 10/17/2024 3:50 PM EDT Abdominal fluid collection LVEF TRANSTHORACIC ECHO Routine 10/18/19 11:11 AM EDT ECHO Routine 10/17/2024 11:11 AM EDT CBC + DIFF Routine 10/17/2024 4:46 AM EDT TA[facility]/FK-506 BL Timed Stat 10/17/2024 4:46 AM EDT PHOSPHORUS INORGANIC Routine 10/17/2024 4:46 AM EDT MAGNESIUM BLD Routine 10/17/2024 4:46 AM EDT COMPREHENSIVE METABOLIC PANEL Routine 10/17/2024 4:[address] ABD/PEL W IVCON Routine 10/16/2024 12:48 PM EDT CBC + DIFF Routine 10/16/2024 4:52 AM EDT TA[facility]/FK-506 BL Timed Stat 10/16/2024 4:52 AM EDT PHOSPHORUS INORGANIC Routine 10/16/2024 4:52 AM EDT MAGNESIUM BLD Routine 10/16/2024 4:52 AM EDT COMPREHENSIVE METABOLIC PANEL Routine 10/16/2024 4:52 AM EDT INTUBATION Routine 10/15/2024 4:07 PM EDT ERCP Routine 10/15/2024 3:44 PM EDT GLUCOSE, BLOOD (POC) Routine 10/15/2024 3:11 PM EDT HIGH SENSITIVITY TROPONIN T Timed 10/15/2024 8:39 AM EDT HEPATITIS B VIRUS (HBV) DNA, QUANTITATIVE PCR, PLASMA/SERUM Routine 10/15/2024 8:39 AM EDT HEPATITIS C VIRUS (HCV) RNA, QUANTITATIVE PCR, PLASMA/SERUM Routine 10/15/2024 8:39 AM EDT HUMAN IMMUNODEFICIENCY VIRUS 1 (HIV-1) RNA, QUANTITATIVE PCR, PLASMA Routine 10/15/2024 8:39 AM EDT CBC + DIFF Routine 10/15/2024 8:39 AM EDT PHOSPHORUS INORGANIC Routine 10/15/2024 8:39 AM EDT MAGNESIUM BLD Routine 10/15/2024 8:39 AM EDT COMPREHENSIVE METABOLIC PANEL Routine 10/15/2024 8:39 AM EDT ECG COMPLETE STAT 10/14/2024 8:58 PM EDT XR CHEST 1V FRONTAL PORT STAT 025 7:18 PM EDT NT PRO BNP Routine 10/14/2024 6:32 PM EDT HIGH SENSITIVITY TROPONIN T Timed 10/14/2024 6:32 PM EDT US CHEST (POC) H23 USE ONLY Routine 10/14/2024 4:01 PM EDT BACTERIAL CULTURE AND GRAM STAIN, STERILE BODY FLUID Routine 10/14/2024 3:31 PM EDT Pleural effusion BACTERIAL CULTURE, TISSUE AND WOUND, ANAEROBIC Routine 10/14/2024 3:31 PM EDT Pleural effusion AFB CULTURE AND STAIN Routine 10/14/2024 3:31 PM EDT Pleural effusion STAFF REVIEW PROREV NO CHARGE Routine 10/14/2024 3:31 PM EDT Pleural effusion BF MANUAL DIFF Routine 10/14/2024 3:31 PM EDT Pleural effusion CYTOLOGY NON-CLAIMS DIRECTOR Routine 10/14/2024 3:31 PM EDT Pleural effusion PH BODY FLUID Routine 10/14/2024 3:31 PM EDT Pleural effusion TRIGLYCERIDE BFL Routine 10/14/2024 3:31 PM EDT Pleural effusion PROTEIN BFL Routine 10/14/2024 3:31 PM EDT Pleural effusion LDH BODY FLUID Routine 10/14/2024 3:31 PM EDT Pleural effusion GLUCOSE BFL Routine 10/14/2024 3:31 PM EDT Pleural effusion BODY FLUID CELL COUNT Routine 10/14/2024 3:31 PM EDT Pleural effusion ALBUMIN BFL Routine 10/14/2024 3:31 PM EDT Pleural effusion THORACENTESIS NEEDLE/CATH PLEURA W/IMAGING 10/14/2024 2:52 PM EDT Pleural effusion ECG COMPLETE STAT 10/14/2024 12:20 PM EDT TYPE + SCREEN Routine 10/14/2024 11:12 AM EDT HIGH SENSITIVITY TROPONIN T STAT 10/14/2024 11:12 AM EDT US CHEST (POC) H23 USE ONLY Routine 10/14/2024 9:01 AM EDT PROTHROMBIN TIME Routine 10/14/2024 5:13 AM EDT CYTOMEGALOVIRUS (CMV) DNA, QUANTITATIVE PCR, PLASMA Routine 10/14/2024 5:13 AM EDT CBC + DIFF Routine 10/14/2024 5:13 AM EDT TA[facility]/FK-506 BL Timed Stat 10/14/2024 5:13 AM EDT PHOSPHORUS INORGANIC Routine 10/14/2024 5:13 AM EDT MAGNESIUM BLD Routine 10/14/2024 5:13 AM EDT COMPREHENSIVE METABOLIC PANEL Routine 10/14/2024 5:13 AM EDT CBC + DIFF Routine 10/13/2024 4:34 AM EDT TA[facility]/FK-506 BL Timed Stat 10/13/2024 4:34 AM EDT PHOSPHORUS INORGANIC Routine 10/13/2024 4:34 AM EDT MAGNESIUM BLD Routine 10/13/2024 4:34 AM EDT COMPREHENSIVE METABOLIC PANEL Routine 10/13/2024 4:34 AM EDT OVA + PARA MICROSCOPIC Routine 8:10 PM EDT EXPANDED STOOL GASTROINTESTINAL PANEL BY PCR Routine 10/12/2024 8:10 PM EDT CBC + DIFF Routine 10/12/2024 6:02 AM EDT [facility]/FK-506 BL Timed Stat 10/12/2024 6:02 AM EDT PHOSPHORUS INORGANIC Routine 10/12/2024 6:02 AM EDT MAGNESIUM BLD Routine 10/12/2024 6:02 AM EDT COMPREHENSIVE METABOLIC PANEL Routine 10/12/2024 6:02 AM EDT XR CHEST 1V FRONTAL PORT STAT 025 11:26 AM EDT CBC + DIFF Routine 10/11/2024 5:51 AM EDT [facility]/FK-506 BL Timed Stat 10/11/2024 5:51 AM EDT PHOSPHORUS INORGANIC Routine 10/11/2024 5:51 AM EDT MAGNESIUM BLD Routine 10/11/2024 5:51 AM EDT COMPREHENSIVE METABOLIC PANEL Routine 10/11/2024 5:51 AM EDT US CHEST (POC) H23 USE ONLY Routine 10/10/2024 8:48 AM EDT CBC + DIFF Routine 10/10/2024 4:37 AM EDT TA[facility]/FK-506 BL Timed Stat 10/10/2024 4:37 AM EDT PHOSPHORUS INORGANIC Routine 10/10/2024 4:37 AM EDT MAGNESIUM BLD Routine 10/10/2024 4:37 AM EDT COMPREHENSIVE METABOLIC PANEL Routine 10/10/2024 4:37 AM EDT C-REACTIVE PROTEIN (CRP) Routine 025 4:57 AM EDT CBC + DIFF Routine 10/09/2024 4:57 AM EDT [facility]/FK-506 BL Timed Stat 10/09/2024 4:57 AM EDT PHOSPHORUS INORGANIC Routine 10/09/2024 4:57 AM EDT MAGNESIUM BLD Routine 10/09/2024 4:57 AM EDT COMPREHENSIVE METABOLIC PANEL Routine 10/09/2024 4:57 AM EDT CYTOMEGALOVIRUS (CMV) DNA, QUANTITATIVE PCR, PLASMA Routine 10/09/2024 4:56 AM EDT EXPANDED RESPIRATORY PATHOGEN PANEL BY PCR, EXPEDITED Routine 10/08/2024 11:[address] CHEST WO IVCON STAT 10/08/2024 1:0 5 PM EDT US DOPPLER COMPLETE STAT 10/08/2024 7 :45 AM EDT US ABD LIVER VASCULAR STAT 10/08/2024 7:44 AM EDT TYPE + SCREEN Routine 10/08/2024 4:43 AM EDT AMMONIA BLD Routine 10/08/2024 4:43 AM EDT PROTHROMBIN TIME Routine 10/08/2024 4:43 AM EDT [facility]/FK-506 BL Timed Stat 10/08/2024 4:43 AM EDT PHOSPHORUS INORGANIC Routine 10/08/2024 4:43 AM EDT MAGNESIUM BLD Routine 10/08/2024 4:43 AM EDT COMPREHENSIVE METABOLIC PANEL Routine 10/08/2024 4:43 AM EDT COMPLETE BLOOD COUNT Routine 10/08/2024 4:[address] BRAIN WO IVCON 10/07/2024 3:[address] ABD/PEL WO IVCON 10/07/2024 3 :00 PM EDT XR ABDOMEN 1V SUPINE 10/07/2024 10:49 AM EDT US ABDOMEN LTD 10/07/2024 10:35 AM EDT [facility]/FK-506 BL Routine 10/07/2024 5:24 AM EDT MAGNESIUM BLD Routine 10/07/2024 5:24 AM EDT GGT BLD Routine 10/07/2024 5:24 AM EDT C-REACTIVE PROTEIN (CRP) Routine 025 5:24 AM EDT COMPREHENSIVE METABOLIC PANEL Routine 10/07/2024 5:24 AM EDT CYTOMEGALOVIRUS (CMV) DNA, QUANTITATIVE PCR, PLASMA Routine 10/07/2024 5:24 AM EDT CBC + DIFF Routine 10/07/2024 5:24 AM EDT NT PRO BNP Routine 10/07/2024 5:24 AM EDT XR ABDOMEN 1V SUPINE 10/06/2024 2:59 PM EDT XR CHEST 1V FRONTAL 10/06/2024 2 :59 PM EDT US ABDOMEN LTD 10/06/2024 12:59 PM EDT TYPE + SCREEN Routine 10/06/2024 6:00 AM EDT CBC + DIFF Routine 10/06/2024 6:00 AM EDT URIC ACID BLOOD Routine 10/06/2024 6:00 AM EDT XR FOOT GENERAL 3V AP/LAT/OBL RIGHT 10/05/2024 2:07 PM EDT CBC + DIFF Routine 10/05/2024 6:04 AM EDT CBC + DIFF Routine 10/04/2024 6:32 AM EDT MAGNESIUM BLD Routine 10/04/2024 6:32 AM EDT RENAL FUNCTION PANEL Routine 10/04/2024 6:32 AM EDT KETONES/ACETONE/BHB Routine 10/04/2024 6 :32 AM EDT LACTIC ACID/LACTATE Routine 10/04/2024 6 :32 AM EDT [facility]/FK-506 BL Routine 10/03/2024 5:35 AM EDT MAGNESIUM BLD Routine 10/03/2024 5:35 AM EDT GGT BLD Routine 10/03/2024 5:35 AM EDT C-REACTIVE PROTEIN (CRP) Routine 025 5:35 AM EDT COMPREHENSIVE METABOLIC PANEL Routine 10/03/2024 5:35 AM EDT CBC + DIFF Routine 10/03/2024 5:35 AM EDT NT PRO BNP Routine 10/03/2024 5:35 AM EDT TYPE + SCREEN Routine 10/02/2024 5:00 AM EDT COMPLETE BLOOD COUNT Routine 10/02/2024 4:12 AM EDT VITAMIN B12 BLOOD Routine 10/02/2024 4:1 2 AM EDT FOLATE SERUM Routine 10/02/2024 4:12 AM EDT IRON + TIBC Routine 10/02/2024 4:12 AM EDT FERRITIN BLD Routine 10/02/2024 4:12 AM EDT [facility]/FK-506 BL Routine 10/02/2024 4:12 AM EDT CBC + DIFF Routine 10/01/2024 4:45 AM EDT C-REACTIVE PROTEIN (CRP) Routine 025 4:45 AM EDT MAGNESIUM BLD Routine 10/01/2024 4:45 AM EDT [facility]/FK-506 BL Routine 09/30/2024 7:00 AM EDT MAGNESIUM BLD Routine 09/30/2024 7:00 AM EDT GGT BLD Routine 09/30/2024 7:00 AM EDT C-REACTIVE PROTEIN (CRP) Routine 025 7:00 AM EDT COMPREHENSIVE METABOLIC PANEL Routine 09/30/2024 7:00 AM EDT CYTOMEGALOVIRUS (CMV) DNA, QUANTITATIVE PCR, PLASMA Routine 09/30/2024 7:00 AM EDT CBC + DIFF Routine 09/30/2024 7:00 AM EDT NT PRO BNP Routine 09/30/2024 7:00 AM EDT ECG COMPLETE 09/29/2024 5:07 PM EDT ECG COMPLETE 09/29/2024 5:07 PM EDT ECG COMPLETE 09/29/2024 5:07 PM EDT GLUCOSE, BLOOD (POC) Routine 09/29/2024 12:50 PM EDT GLUCOSE, BLOOD (POC) Routine 09/29/2024 8:08 AM EDT TA[facility]/FK-506 BL Timed Stat 09/29/2024 5:42 AM EDT CBC + DIFF Routine 09/29/2024 5:41 AM EDT PHOSPHORUS INORGANIC Routine 09/29/2024 5:41 AM EDT MAGNESIUM BLD Routine 09/29/2024 5:41 AM EDT COMPREHENSIVE METABOLIC PANEL Routine 09/29/2024 5:41 AM EDT GLUCOSE, BLOOD (POC) Routine 09/28/2024 8:28 PM EDT GLUCOSE, BLOOD (POC) Routine 09/28/2024 4:23 PM EDT GLUCOSE, BLOOD (POC) Routine 09/28/2024 12:26 PM EDT ECG COMPLETE STAT 09/28/2024 11:33 AM EDT GLUCOSE, BLOOD (POC) Routine 09/28/2024 8:41 AM EDT TA[facility]/FK-506 BL Timed Stat 09/28/2024 5:33 AM EDT CBC + DIFF Routine 09/28/2024 5:33 AM EDT PHOSPHORUS INORGANIC Routine 09/28/2024 5:33 AM EDT MAGNESIUM BLD Routine 09/28/2024 5:33 AM EDT COMPREHENSIVE METABOLIC PANEL Routine 09/28/2024 5:33 AM EDT GLUCOSE, BLOOD (POC) Routine 09/27/2024 8:19 PM EDT GLUCOSE, BLOOD (POC) Routine 09/27/2024 4:36 PM EDT GLUCOSE, BLOOD (POC) Routine 09/27/2024 11:32 AM EDT RBC TRANSFUSION INSTRUCTION ([place], [place]) Routine 09/27/2024 11:08 AM EDT RED BLOOD CELLS, ADULT Routine 8:15 AM EDT GLUCOSE, BLOOD (POC) Routine 09/27/2024 7:37 AM EDT TYPE + SCREEN Routine 09/27/2024 5:45 AM EDT TA[facility]/FK-506 BL Timed Stat 09/27/2024 5:45 AM EDT CBC + DIFF Routine 09/27/2024 5:45 AM EDT PHOSPHORUS INORGANIC Routine 09/27/2024 5:45 AM EDT MAGNESIUM BLD Routine 09/27/2024 5:45 AM EDT COMPREHENSIVE METABOLIC PANEL Routine 09/27/2024 5:45 AM EDT GLUCOSE, BLOOD (POC) Routine 09/26/2024 8:44 PM EDT GLUCOSE, BLOOD (POC) Routine 09/26/2024 5:01 PM EDT GLUCOSE, BLOOD (POC) Routine 09/26/2024 11:54 AM EDT GLUCOSE, BLOOD (POC) Routine 09/26/2024 9:48 AM EDT TA[facility]/FK-506 BL Timed Stat 09/26/2024 5:38 AM EDT CBC + DIFF Routine 09/26/2024 5:38 AM EDT PHOSPHORUS INORGANIC Routine 09/26/2024 5:38 AM EDT MAGNESIUM BLD Routine 09/26/2024 5:38 AM EDT COMPREHENSIVE METABOLIC PANEL Routine 09/26/2024 5:38 AM EDT GLUCOSE, BLOOD (POC) Routine 09/25/2024 8:55 PM EDT GLUCOSE, BLOOD (POC) Routine 09/25/2024 4:57 PM EDT GLUCOSE, BLOOD (POC) Routine 09/25/2024 11:41 AM EDT GLUCOSE, BLOOD (POC) Routine 09/25/2024 8:41 AM EDT [facility]/FK-506 BL Timed Stat 09/25/2024 4:07 AM EDT CBC + DIFF Routine 09/25/2024 4:07 AM EDT PHOSPHORUS INORGANIC Routine 09/25/2024 4:07 AM EDT MAGNESIUM BLD Routine 09/25/2024 4:07 AM EDT COMPREHENSIVE METABOLIC PANEL Routine 09/25/2024 4:07 AM EDT GLUCOSE, BLOOD (POC) Routine 09/24/2024 8:29 PM EDT GLUCOSE, BLOOD (POC) Routine 09/24/2024 5:13 PM EDT BACTERIAL CULTURE AND GRAM STAIN, ABSCESS AND WOUND (AEROBIC CULTURE) Routine 09/24/2024 1:34 PM EDT GLUCOSE, BLOOD (POC) Routine 09/24/2024 11:41 AM EDT GLUCOSE, BLOOD (POC) Routine 09/24/2024 8:26 AM EDT TYPE + SCREEN Routine 09/24/2024 5:16 AM EDT [facility]/FK-506 BL Timed Stat 09/24/2024 5:16 AM EDT CBC + DIFF Routine 09/24/2024 5:16 AM EDT PHOSPHORUS INORGANIC Routine 09/24/2024 5:16 AM EDT MAGNESIUM BLD Routine 09/24/2024 5:16 AM EDT COMPREHENSIVE METABOLIC PANEL Routine 09/24/2024 5:16 AM EDT GLUCOSE, BLOOD (POC) Routine 09/23/2024 8:50 PM EDT GLUCOSE, BLOOD (POC) Routine 09/23/2024 5:32 PM EDT XR CHEST 1V FRONTAL PORT Routine 025 2:14 PM EDT XR ABDOMEN 1V SUPINE STAT 09/23/2024 2:14 PM EDT GLUCOSE, BLOOD (POC) Routine 09/23/2024 11:29 AM EDT GLUCOSE, BLOOD (POC) Routine 09/23/2024 8:34 AM EDT [facility]/FK-506 BL Timed Stat 09/23/2024 5:21 AM EDT CYTOMEGALOVIRUS (CMV) DNA, QUANTITATIVE PCR, PLASMA Routine 09/23/2024 5:21 AM EDT CBC + DIFF Routine 09/23/2024 5:21 AM EDT PHOSPHORUS INORGANIC Routine 09/23/2024 5:21 AM EDT MAGNESIUM BLD Routine 09/23/2024 5:21 AM EDT COMPREHENSIVE METABOLIC PANEL Routine 09/23/2024 5:21 AM EDT GLUCOSE, BLOOD (POC) Routine 09/23/2024 5:16 AM EDT GLUCOSE, BLOOD (POC) Routine 09/22/2024 8:30 PM EDT GLUCOSE, BLOOD (POC) Routine 09/22/2024 5:25 PM EDT XR CHEST 1V FRONTAL PORT Routine 025 3:21 PM EDT GLUCOSE, BLOOD (POC) Routine 09/22/2024 11:59 AM EDT XR ABDOMEN 1V SUPINE STAT 09/22/2024 10:52 AM EDT XR CHEST 1V FRONTAL PORT STAT 025 9:39 AM EDT GLUCOSE, BLOOD (POC) Routine 09/22/2024 9:27 AM EDT [facility]/FK-506 BL Timed Stat 09/22/2024 5:42 AM EDT CBC + DIFF Routine 09/22/2024 5:42 AM EDT PHOSPHORUS INORGANIC Routine 09/22/2024 5:42 AM EDT MAGNESIUM BLD Routine 09/22/2024 5:42 AM EDT COMPREHENSIVE METABOLIC PANEL Routine 09/22/2024 5:42 AM EDT GLUCOSE, BLOOD (POC) Routine 09/21/2024 8:41 PM EDT GLUCOSE, BLOOD (POC) Routine 09/21/2024 4:54 PM EDT GLUCOSE, BLOOD (POC) Routine 09/21/2024 11:26 AM EDT XR CHEST 1V FRONTAL PORT STAT 025 10:48 AM EDT LVEF TRANSTHORACIC ECHO Routine 09/22/19 10:22 AM EDT ECHO Routine 09/21/2024 10:22 AM EDT GLUCOSE, BLOOD (POC) Routine 09/21/2024 8:25 AM EDT TYPE + SCREEN Routine 09/21/2024 4:16 AM EDT [facility]/FK-506 BL Timed Stat 09/21/2024 4:16 AM EDT CBC + DIFF Routine 09/21/2024 4:16 AM EDT PHOSPHORUS INORGANIC Routine 09/21/2024 4:16 AM EDT MAGNESIUM BLD Routine 09/21/2024 4:16 AM EDT COMPREHENSIVE METABOLIC PANEL Routine 09/21/2024 4:16 AM EDT GLUCOSE, BLOOD (POC) Routine 09/20/2024 10:28 PM EDT GLUCOSE, BLOOD (POC) Routine 09/20/2024 4:38 PM EDT GLUCOSE, BLOOD (POC) Routine 09/20/2024 11:40 AM EDT XR CHEST 1V FRONTAL PORT Routine 025 11:11 AM EDT GLUCOSE, BLOOD (POC) Routine 09/20/2024 8:38 AM EDT US DOPPLER COMPLETE Routine 09/20/2024 7 :50 AM EDT US ABD LIVER VASCULAR TRANSPLANT (MC) Routine 09/20/2024 7:49 AM EDT [facility]/FK-506 BL Timed Stat 09/20/2024 5:49 AM EDT CBC + DIFF Routine 09/20/2024 5:49 AM EDT PHOSPHORUS INORGANIC Routine 09/20/2024 5:49 AM EDT MAGNESIUM BLD Routine 09/20/2024 5:49 AM EDT COMPREHENSIVE METABOLIC PANEL Routine 09/20/2024 5:49 AM EDT GLUCOSE, BLOOD (POC) Routine 09/19/2024 8:40 PM EDT GLUCOSE, BLOOD (POC) Routine 09/19/2024 4:30 PM EDT GLUCOSE, BLOOD (POC) Routine 09/19/2024 1:31 PM EDT GLUCOSE, BLOOD (POC) Routine 09/19/2024 9:06 AM EDT [facility]/FK-506 BL Timed Stat 09/19/2024 5:47 AM EDT CBC + DIFF Routine 09/19/2024 5:47 AM EDT PHOSPHORUS INORGANIC Routine 09/19/2024 5:47 AM EDT MAGNESIUM BLD Routine 09/19/2024 5:47 AM EDT COMPREHENSIVE METABOLIC PANEL Routine 09/19/2024 5:47 AM EDT GLUCOSE, BLOOD (POC) Routine 09/18/2024 8:18 PM EDT GLUCOSE, BLOOD (POC) Routine 09/18/2024 5:31 PM EDT GLUCOSE, BLOOD (POC) Routine 09/18/2024 11:57 AM EDT US ABD LIVER VASCULAR TRANSPLANT (MC) Routine 09/18/2024 11:14 AM EDT US DOPPLER COMPLETE Routine 09/18/2024 11:13 AM EDT GLUCOSE, BLOOD (POC) Routine 09/18/2024 7:33 AM EDT TYPE + SCREEN Routine 09/18/2024 5:33 AM EDT [facility]/FK-506 BL Timed Stat 09/18/2024 5:33 AM EDT CBC + DIFF Routine 09/18/2024 5:33 AM EDT PHOSPHORUS INORGANIC Routine 09/18/2024 5:33 AM EDT MAGNESIUM BLD Routine 09/18/2024 5:33 AM EDT COMPREHENSIVE METABOLIC PANEL Routine 09/18/2024 5:33 AM EDT GLUCOSE, BLOOD (POC) Routine 09/17/2024 8:14 PM EDT GLUCOSE, BLOOD (POC) Routine 09/17/2024 4:49 PM EDT GLUCOSE, BLOOD (POC) Routine 09/17/2024 12:18 PM EDT US DOPPLER COMPLETE Routine 09/17/2024 9 :57 AM EDT US ABD LIVER VASCULAR Routine 09/17/2024 9:57 AM EDT GLUCOSE, BLOOD (POC) Routine 09/17/2024 8:18 AM EDT PHOSPHORUS INORGANIC Routine 09/17/2024 4:19 AM EDT MAGNESIUM BLD Routine 09/17/2024 4:19 AM EDT COMPREHENSIVE METABOLIC PANEL Routine 09/17/2024 4:19 AM EDT COMPLETE BLOOD COUNT Routine 09/17/2024 4:19 AM EDT [facility]/FK-506 BL Timed Stat 09/17/2024 4:19 AM EDT GLUCOSE, BLOOD (POC) Routine 09/16/2024 8:46 PM EDT GLUCOSE, BLOOD (POC) Routine 09/16/2024 5:17 PM EDT XR CHEST 1V FRONTAL PORT Timed 025 4:09 PM EDT XR CHEST 1V FRONTAL PORT STAT 025 1:01 PM EDT SODIUM/NA BLD Timed Stat 09/16/2024 12:16 PM EDT GLUCOSE, BLOOD (POC) Routine 09/16/2024 11:49 AM EDT US DOPPLER COMPLETE Routine 09/16/2024 10:53 AM EDT US ABD LIVER VASCULAR Routine 09/16/2024 10:53 AM EDT GLUCOSE, BLOOD (POC) Routine 09/16/2024 8:00 AM EDT SODIUM/NA BLD Timed Stat 09/16/2024 6:36 AM EDT TACROLIMUS/FK-506 BL Timed Stat 09/16/2024 6:36 AM EDT CYTOMEGALOVIRUS (CMV) DNA, QUANTITATIVE PCR, PLASMA STAT 09/16/2024 6:36 AM EDT ACTIVATED PTT STAT 09/15/2024 11:57 PM EDT PROTHROMBIN TIME STAT 09/15/2024 11:57 PM EDT PHOSPHORUS INORGANIC STAT 09/15/2024 11:57 PM EDT MAGNESIUM BLD STAT 09/15/2024 11:57 PM EDT COMPREHENSIVE METABOLIC PANEL STAT 09/15/2024 11:57 PM EDT COMPLETE BLOOD COUNT STAT 09/15/2024 11:57 PM EDT SODIUM/NA BLD Timed Stat 09/15/2024 11:57 PM EDT GLUCOSE, BLOOD (POC) Routine 09/15/2024 7:38 PM EDT SODIUM/NA BLD Timed Stat 09/15/2024 5:44 PM EDT GLUCOSE, BLOOD (POC) Routine 09/15/2024 5:42 PM EDT US DOPPLER COMPLETE STAT 09/15/2024 5 :22 PM EDT US ABD LIVER VASCULAR STAT 09/15/2024 5:21 PM EDT VENOUS BLOOD GASES STAT 09/15/2024 4: 23 PM EDT COMPLETE BLOOD COUNT STAT 09/15/2024 2:43 PM EDT SODIUM/NA BLD Timed Stat 09/15/2024 12:28 PM EDT XR CHEST 1V FRONTAL PORT STAT 025 12:27 PM EDT GLUCOSE, BLOOD (POC) Routine 09/15/2024 11:46 AM EDT COMPLETE BLOOD COUNT STAT 09/15/2024 10:26 AM EDT GLUCOSE, BLOOD (POC) Routine 09/15/2024 7:48 AM EDT SODIUM/NA BLD Timed Stat 09/15/2024 5:28 AM EDT TYPE + SCREEN STAT 09/15/2024 3:54 AM EDT TACROLIMUS/FK-506 BL Timed Stat 09/15/2024 3:54 AM EDT ACTIVATED PTT STAT 09/15/2024 12:29 AM EDT PROTHROMBIN TIME STAT 09/15/2024 12:29 AM EDT PHOSPHORUS INORGANIC STAT 09/15/2024 12:29 AM EDT MAGNESIUM BLD STAT 09/15/2024 12:29 AM EDT COMPREHENSIVE METABOLIC PANEL STAT 09/15/2024 12:29 AM EDT COMPLETE BLOOD COUNT STAT 09/15/2024 12:29 AM EDT SODIUM/NA BLD Timed Stat 09/14/2024 9:45 PM EDT GLUCOSE, BLOOD (POC) Routine 09/14/2024 9:00 PM EDT GLUCOSE, BLOOD (POC) Routine 09/14/2024 5:40 PM EDT COMPREHENSIVE METABOLIC PANEL Add-on 09/14/2024 2:51 PM EDT SODIUM/NA BLD Timed Stat 09/14/2024 2:51 PM EDT GLUCOSE, BLOOD (POC) Routine 09/14/2024 11:26 AM EDT SODIUM RANDOM URINE STAT 09/14/2024 10:59 AM EDT OSMOLALITY URINE STAT 09/14/2024 10:59 AM EDT US DOPPLER COMPLETE Routine 09/14/2024 10:48 AM EDT US ABD LIVER VASCULAR Routine 09/14/2024 10:48 AM EDT SODIUM/NA BLD Timed Stat 09/14/2024 8:26 AM EDT GLUCOSE, BLOOD (POC) Routine 09/14/2024 8:04 AM EDT US ARM VEIN DVT UNL VAS LAB STAT 09/14/2024 7:51 AM EDT CLOSTRIDIUM DIFFICILE TOXIN BY PCR STAT 09/14/2024 5:26 AM EDT SODIUM/NA BLD Timed Stat 09/14/2024 4:33 AM EDT TACROLIMUS/FK-506 BL Timed Stat 09/14/2024 4:33 AM EDT ACTIVATED PTT STAT 09/14/2024 12:54 AM EDT PROTHROMBIN TIME STAT 09/14/2024 12:54 AM EDT PHOSPHORUS INORGANIC STAT 09/14/2024 12:54 AM EDT MAGNESIUM BLD STAT 09/14/2024 12:54 AM EDT COMPREHENSIVE METABOLIC PANEL STAT 09/14/2024 12:54 AM EDT COMPLETE BLOOD COUNT STAT 09/14/2024 12:54 AM EDT SODIUM/NA BLD Timed Stat 09/13/2024 9:27 PM EDT GLUCOSE, BLOOD (POC) Routine 09/13/2024 8:59 PM EDT GLUCOSE, BLOOD (POC) Routine 09/13/2024 4:29 PM EDT SODIUM/NA BLD Timed Stat 09/13/2024 3:12 PM EDT SODIUM/NA BLD STAT 09/13/2024 12:47 PM EDT POTASSIUM RANDOM UR Add-on 09/13/2024 12:42 PM EDT OSMOLALITY URINE STAT 09/13/2024 12:42 PM EDT SODIUM RANDOM URINE STAT 09/13/2024 12:42 PM EDT GLUCOSE, BLOOD (POC) Routine 09/13/2024 11:35 AM EDT OSMOLALITY URINE STAT 09/13/2024 8:45 AM EDT SODIUM RANDOM URINE STAT 09/13/2024 8 :45 AM EDT GLUCOSE, BLOOD (POC) Routine 09/13/2024 8:03 AM EDT TACROLIMUS/FK-506 BL Timed Stat 09/13/2024 4:41 AM EDT ACTIVATED PTT STAT 09/13/2024 12:24 AM EDT PROTHROMBIN TIME STAT 09/13/2024 12:24 AM EDT PHOSPHORUS INORGANIC STAT 09/13/2024 12:24 AM EDT MAGNESIUM BLD STAT 09/13/2024 12:24 AM EDT COMPREHENSIVE METABOLIC PANEL STAT 09/13/2024 12:24 AM EDT COMPLETE BLOOD COUNT STAT 09/13/2024 12:24 AM EDT GLUCOSE, BLOOD (POC) Routine 09/12/2024 8:05 PM EDT GLUCOSE, BLOOD (POC) Routine 09/12/2024 6:05 PM EDT XR CHEST 1V FRONTAL PORT STAT 025 4:46 PM EDT PERQ DRAINAGE PLEURA INSERT CATH W/O IMAGING Routine 09/12/2024 4:14 PM EDT Pleural effusion PERQ DRAINAGE PLEURA INSERT CATH W/O IMAGING Routine 09/12/2024 4:14 PM EDT Pleural effusion XR CHEST 1V FRONTAL PORT STAT 025 1:36 PM EDT GLUCOSE, BLOOD (POC) Routine 09/12/2024 11:52 AM EDT GLUCOSE, BLOOD (POC) Routine 09/12/2024 8:19 AM EDT SODIUM RANDOM URINE STAT 09/12/2024 6 :48 AM EDT OSMOLALITY URINE STAT 09/12/2024 6:48 AM EDT OSMOLALITY BLD STAT 09/12/2024 6:47 AM EDT VENOUS BLOOD GASES STAT 09/12/2024 6: 18 AM EDT BASIC METABOLIC PANEL STAT 09/12/2024 6:17 AM EDT TYPE + SCREEN STAT 09/12/2024 3:34 AM EDT TACROLIMUS/FK-506 BL Timed Stat 09/12/2024 3:34 AM EDT CBC + DIFF STAT 09/12/2024 3:34 AM EDT ACTIVATED PTT STAT 09/12/2024 3:34 AM EDT PROTHROMBIN TIME STAT 09/12/2024 3:34 AM EDT PHOSPHORUS INORGANIC STAT 09/12/2024 3:34 AM EDT MAGNESIUM BLD STAT 09/12/2024 3:34 AM EDT COMPREHENSIVE METABOLIC PANEL STAT 09/12/2024 3:34 AM EDT GLUCOSE, BLOOD (POC) Routine 09/11/2024 11:51 PM EDT GLUCOSE, BLOOD (POC) Routine 09/11/2024 9:04 PM EDT GLUCOSE, BLOOD (POC) Routine 09/11/2024 5:57 PM EDT GLUCOSE, BLOOD (POC) Routine 09/11/2024 11:55 AM EDT ACTIVATED PTT STAT 09/11/2024 11:30 AM EDT PROTHROMBIN TIME STAT 09/11/2024 11:30 AM EDT PHOSPHORUS INORGANIC STAT 09/11/2024 11:30 AM EDT MAGNESIUM BLD STAT 09/11/2024 11:30 AM EDT C-REACTIVE PROTEIN (CRP) STAT 025 11:30 AM EDT CBC + DIFF STAT 09/11/2024 11:30 AM EDT US DOPPLER COMPLETE Routine 09/11/2024 10:22 AM EDT US ABD LIVER VASCULAR TRANSPLANT (MC) Routine 09/11/2024 10:22 AM EDT SODIUM RANDOM URINE STAT 09/11/2024 10:19 AM EDT GLUCOSE, BLOOD (POC) Routine 09/11/2024 5:45 AM EDT COMPLETE BLOOD COUNT STAT 09/11/2024 12:16 AM EDT ACTIVATED PTT STAT 09/11/2024 12:01 AM EDT PROTHROMBIN TIME STAT 09/11/2024 12:01 AM EDT PHOSPHORUS INORGANIC STAT 09/11/2024 12:01 AM EDT MAGNESIUM BLD STAT 09/11/2024 12:01 AM EDT COMPREHENSIVE METABOLIC PANEL STAT 09/11/2024 12:01 AM EDT COMPLETE BLOOD COUNT STAT 09/11/2024 12:01 AM EDT GLUCOSE, BLOOD (POC) Routine 09/10/2024 11:50 PM EDT GLUCOSE, BLOOD (POC) Routine 09/10/2024 5:53 PM EDT ARTERIAL BLOOD GASES STAT 09/10/2024 5:18 PM EDT COMPREHENSIVE METABOLIC PANEL STAT 09/10/2024 12:19 PM EDT C-REACTIVE PROTEIN (CRP) Routine 025 12:19 PM EDT XR CHEST 1V FRONTAL PORT STAT 025 12:15 PM EDT GLUCOSE, BLOOD (POC) Routine 09/10/2024 11:49 AM EDT ARTERIAL BLOOD GASES Timed Stat 09/10/2024 10:42 AM EDT US DOPPLER COMPLETE Routine 09/10/2024 10:27 AM EDT US ABD LIVER VASCULAR TRANSPLANT (MC) Routine 09/10/2024 10:26 AM EDT ALLOGEN SOT DONOR RPT Routine 09/10/2024 10:15 AM EDT ARTERIAL BLOOD GASES STAT 09/10/2024 8:41 AM EDT SODIUM/NA BLD STAT 09/10/2024 6:47 AM EDT GLUCOSE, BLOOD (POC) Routine 09/10/2024 6:12 AM EDT VENOUS BLOOD GASES Timed Stat 09/10/2024 5: 43 AM EDT VENOUS BLOOD GASES Timed Stat 09/10/2024 3: 47 AM EDT GLUCOSE, BLOOD (POC) Routine 09/10/2024 3:43 AM EDT VENOUS BLOOD GASES Timed Stat 09/10/2024 2: 06 AM EDT VENOUS BLOOD GASES Timed Stat 09/10/2024 12:21 AM EDT CYTOMEGALOVIRUS (CMV) DNA, QUANTITATIVE PCR, PLASMA Routine 09/10/2024 12:21 AM EDT C-REACTIVE PROTEIN (CRP) Routine 025 12:21 AM EDT CBC + DIFF Routine 09/10/2024 12:21 AM EDT THROMBOGRAPH PANEL Routine 09/10/2024 12:21 AM EDT FIBRINOGEN Routine 09/10/2024 12:21 AM EDT ACTIVATED PTT STAT 09/10/2024 12:21 AM EDT PROTHROMBIN TIME STAT 09/10/2024 12:21 AM EDT PHOSPHORUS INORGANIC STAT 09/10/2024 12:21 AM EDT MAGNESIUM BLD STAT 09/10/2024 12:21 AM EDT COMPREHENSIVE METABOLIC PANEL STAT 09/10/2024 12:21 AM EDT GLUCOSE, BLOOD (POC) Routine 09/10/2024 12:20 AM EDT VENOUS BLOOD GASES Timed Stat 09/09/2024 10:25 PM EDT VENOUS BLOOD GASES Timed Stat 09/09/2024 7: 48 PM EDT US DOPPLER COMPLETE STAT 09/09/2024 7 :04 PM EDT US ABD LIVER VASCULAR TRANSPLANT (MC) STAT 09/09/2024 7:04 PM EDT PLATELET TRANSFUSION INSTRUCTION [place]) Routine 09/09/2024 6:38 PM EDT GLUCOSE, BLOOD (POC) Routine 09/09/2024 6:21 PM EDT PLATELETS, ADULT Routine 09/09/2024 6:15 PM EDT XR ABDOMEN 1V SUPINE STAT 09/09/2024 5:30 PM EDT XR CHEST 1V FRONTAL PORT STAT 025 5:30 PM EDT STAPHYLOCOCCUS AUREUS & MRSA SCREEN, PCR, NASAL STAT 09/09/2024 4:48 PM EDT ARTERIAL BLOOD GASES STAT 09/09/2024 4:45 PM EDT FIBRINOGEN Routine 09/09/2024 4:45 PM EDT CBC + DIFF STAT 09/09/2024 4:45 PM EDT THROMBOGRAPH PANEL STAT 09/09/2024 4: 45 PM EDT ACTIVATED PTT STAT 09/09/2024 4:45 PM EDT PROTHROMBIN TIME STAT 09/09/2024 4:45 PM EDT PHOSPHORUS INORGANIC STAT 09/09/2024 4:45 PM EDT MAGNESIUM BLD STAT 09/09/2024 4:45 PM EDT COMPREHENSIVE METABOLIC PANEL STAT 09/09/2024 4:45 PM EDT GASA + ALL + MG STAT 09/09/2024 3:41 PM EDT CRYOPRECIPITATE TRANSFUSION INSTRUCTION [place] STAT 09/09/2024 3:22 PM EDT CRYOPRECIPITATE TRANSFUSION INSTRUCTION [place] Routine 09/09/2024 3:22 PM EDT RBC TRANSFUSION INSTRUCTION ([place], [place]) Routine 09/09/2024 3:08 PM EDT RBC TRANSFUSION INSTRUCTION [place] Routine 09/09/2024 3:08 PM EDT CRYOPRECIPITATE, ADULT STAT 3:00 PM EDT GASA + ALL + MG STAT 09/09/2024 2:48 PM EDT PLATELET TRANSFUSION INSTRUCTION [place] Routine 09/09/2024 1:59 PM EDT PLATELET TRANSFUSION INSTRUCTION ([place]) Routine 09/09/2024 1:59 PM EDT FROZEN PLASMA TRANSFUSION INSTRUCTION [place] Routine 09/09/2024 1:59 PM EDT FROZEN PLASMA TRANSFUSION INSTRUCTION [place] Routine 09/09/2024 1:59 PM EDT FROZEN PLASMA TRANSFUSION INSTRUCTION ([place]) Routine 09/09/2024 1:44 PM EDT RBC TRANSFUSION INSTRUCTION ([place]) Routine 09/09/2024 1:44 PM EDT FIBRINOGEN STAT 09/09/2024 1:20 PM EDT THROMBOGRAPH LIVER ([place]) PANEL STAT 09/09/2024 1:20 PM EDT GASA + ALL + MG STAT 09/09/2024 1:20 PM EDT RBC TRANSFUSION INSTRUCTION [place] Routine 09/09/2024 12:45 PM EDT GASA + ALL + MG STAT 09/09/2024 12:40 PM EDT GASA + ALL + MG STAT 09/09/2024 11:47 AM EDT SURGICAL PATHOLOGY Routine 09/09/2024 10:57 AM EDT Decompensated cirrhosis (HCC) GASA + ALL + MG STAT 09/09/2024 10:45 AM EDT BACTERIAL CULTURE AND GRAM STAIN, STERILE BODY FLUID Routine 09/09/2024 10:42 AM EDT Decompensated cirrhosis (HCC) BACTERIAL CULTURE, TISSUE AND WOUND, ANAEROBIC Routine 09/09/2024 10:42 AM EDT Decompensated cirrhosis (HCC) FUNGAL CULTURE AND SMEAR (NON DERMAL) Routine 09/09/2024 10:42 AM EDT Decompensated cirrhosis (HCC) RBC TRANSFUSION INSTRUCTION [place] Routine 09/09/2024 9:42 AM EDT RBC TRANSFUSION INSTRUCTION [place] Routine 09/09/2024 9:42 AM EDT NE AN CENTRAL LINE DOUBLE LUMEN PROC DOC LDA Routine 09/09/2024 9:15 AM EDT NE AN ULTRASOUND GUIDANCE Routine 2024 9:15 AM EDT NE AN CENTRAL LINE DOUBLE LUMEN Routine 09/09/2024 9:15 AM EDT NE AN PA CATHETER INTRODUCER DOUBLE LUMEN Routine 09/09/2024 9:15 AM EDT INSERTION FLOW DIRECTED CATHETER FOR MONITORING Routine 09/09/2024 9:15 AM EDT FIBRINOGEN STAT 09/09/2024 9:11 AM EDT THROMBOGRAPH LIVER PANEL STAT 025 9:11 AM EDT PLTCT (PLATELET COUNT) STAT 9:11 AM EDT GASA + ALL + MG STAT 09/09/2024 9:11 AM EDT ARTL CATHJ/CANNULJ MNTR/TRANSFUSION SPX PRQ Routine 09/09/2024 9:00 AM EDT INTUBATION Routine 09/09/2024 8:48 AM EDT CONNJ LVR ALGRFT [facility] PRFUJ DEV EA ADDL HOUR 09/09/2024 8:06 AM EDT Decompensated cirrhosis (HCC) CONNJ LVR ALGRFT [facility] PRFUJ DEV 1ST 4 HOURS 09/09/2024 8:06 AM EDT Decompensated cirrhosis (HCC) CANNULJ LVR ALGRFT PREPJ CONNJ [facility] PRFU DEV 09/09/2024 8:06 AM EDT Decompensated cirrhosis (HCC) BKBENCH PREP CADAVER DONOR 09/09/2024 8:06 AM EDT Decompensated cirrhosis (HCC) LVR ALTRNSPLJ ORTHOTOPIC PRTL/WHL DON ANY AGE 0509/09/2024 8:06 AM EDT Decompensated cirrhosis (HCC) US GUIDANCE FOR VASCULAR ACCESS (POC) FOR [place] USE ONLY STAT 09/09/2024 8:00 AM EDT GLUCOSE, BLOOD (POC) Routine 09/09/2024 7:38 AM EDT VENOUS BLOOD GASES Routine 09/09/2024 7: 17 AM EDT SODIUM/NA BLD Timed 09/09/2024 4:16 AM EDT SODIUM/NA BLD Timed 09/09/2024 4:12 AM EDT PROTHROMBIN TIME Routine 09/09/2024 4:12 AM EDT MAGNESIUM BLD Routine 09/09/2024 4:12 AM EDT COMPREHENSIVE METABOLIC PANEL Routine 09/09/2024 4:12 AM EDT COMPLETE BLOOD COUNT Routine 09/09/2024 4:12 AM EDT SODIUM/NA BLD Timed 09/08/2024 10:25 PM EDT GLUCOSE, BLOOD (POC) Routine 09/08/2024 8:44 PM EDT XR CHEST 1V FRONTAL PORT STAT 025 6:34 PM EDT HEPATITIS C VIRUS (HCV) RNA, QUANTITATIVE PCR, PLASMA/SERUM STAT 09/08/2024 5:43 PM EDT GLUCOSE, BLOOD (POC) Routine 09/08/2024 4:58 PM EDT COVID & INFLUENZA A/B & RSV PCR, EXPEDITED Routine 09/08/2024 4:50 PM EDT ECG COMPLETE STAT 09/08/2024 3:14 PM EDT LIVER REC DEC DNR XM STAT 09/08/2024 2:44 PM EDT TYPE + SCREEN STAT 09/08/2024 2:44 PM EDT RENAL FUNCTION PANEL Add-on 09/08/2024 2:44 PM EDT HEP B CORE AB TOTAL STAT 09/08/2024 2 :44 PM EDT HEP B SURF AB QUAL STAT 09/08/2024 2: 44 PM EDT HEP B SURF AG SCRN STAT 09/08/2024 2: 44 PM EDT HEPATITIS C ANTIBODY IA WITH CONFIRMATION STAT 09/08/2024 2:44 PM EDT HEP REMOTE PANEL BL STAT 09/08/2024 2 :44 PM EDT HIV 1/2 COMBO WITH REFLEX TO DIFFERENTIATION STAT 09/08/2024 2:44 PM EDT HEPATITIS B VIRUS (HBV) DNA, QUANTITATIVE PCR, PLASMA/SERUM STAT 09/08/2024 2:44 PM EDT CMV IGG ANTIBODY BL STAT 09/08/2024 2 :44 PM EDT ACTIVATED PTT STAT 09/08/2024 2:44 PM EDT PROTHROMBIN TIME STAT 09/08/2024 2:44 PM EDT COMPREHENSIVE METABOLIC PANEL STAT 09/08/2024 2:44 PM EDT CBC + DIFF STAT 09/08/2024 2:44 PM EDT RED BLOOD CELLS, ADULT Routine 2:30 PM EDT PLATELETS, ADULT Routine 09/08/2024 2:30 PM EDT FROZEN PLASMA, ADULT Routine 09/08/2024 2:30 PM EDT SODIUM/NA BLD Timed 09/08/2024 1:58 PM EDT GLUCOSE, BLOOD (POC) Routine 09/08/2024 11:22 AM EDT PROTHROMBIN TIME Routine 09/08/2024 8:57 AM EDT MAGNESIUM BLD Routine 09/08/2024 8:57 AM EDT COMPREHENSIVE METABOLIC PANEL Routine 09/08/2024 8:57 AM EDT SODIUM/NA BLD Timed 09/08/2024 8:57 AM EDT COMPLETE BLOOD COUNT Routine 09/08/2024 8:56 AM EDT GLUCOSE, BLOOD (POC) Routine 09/08/2024 7:38 AM EDT SODIUM/NA BLD Timed 09/08/2024 1:59 AM EDT SODIUM/NA BLD Timed 09/07/2024 11:16 PM EDT GLUCOSE, BLOOD (POC) Routine 09/07/2024 8:43 PM EDT GLUCOSE, BLOOD (POC) Routine 09/07/2024 5:55 PM EDT CYSTATIN C Add-on 09/07/2024 1:36 PM EDT OSMOLALITY BLD Add-on 09/07/2024 1:36 PM EDT SODIUM/NA BLD Timed 09/07/2024 1:36 PM EDT GLUCOSE, BLOOD (POC) Routine 09/07/2024 12:34 PM EDT OSMOLALITY URINE Add-on 09/07/2024 12:00 PM EDT POTASSIUM RANDOM UR Add-on 09/07/2024 12:00 PM EDT UREA NITROGEN RND UR Routine 09/07/2024 12:00 PM EDT CREATININE RANDOM UR Routine 09/07/2024 12:00 PM EDT SODIUM RANDOM URINE Routine 09/07/2024 12:00 PM EDT URINALYSIS (WITH MICROSCOPIC) WITH CULTURE IF INDICATED Routine 09/07/2024 12:00 PM EDT GLUCOSE, BLOOD (POC) Routine 09/07/2024 9:28 AM EDT SODIUM/NA BLD Timed 09/07/2024 7:10 AM EDT SODIUM/NA BLD Timed 09/07/2024 7:09 AM EDT PROTHROMBIN TIME Routine 09/07/2024 7:09 AM EDT MAGNESIUM BLD Routine 09/07/2024 7:09 AM EDT COMPREHENSIVE METABOLIC PANEL Routine 09/07/2024 7:09 AM EDT COMPLETE BLOOD COUNT Routine 09/07/2024 7:09 AM EDT SODIUM/NA BLD Routine 09/06/2024 10:34 PM EDT GLUCOSE, BLOOD (POC) Routine 09/06/2024 9:12 PM EDT SODIUM/NA BLD Timed 09/06/2024 5:51 PM EDT GLUCOSE, BLOOD (POC) Routine 09/06/2024 3:59 PM EDT XR ABDOMEN 1V SUPINE Routine 09/06/2024 2:20 PM EDT PARACENTESIS/GASTRO Routine 09/06/2024 12:45 PM EDT GLUCOSE, BLOOD (POC) Routine 09/06/2024 12:33 PM EDT US PARACENTESIS (POC) DDI USE ONLY Routine 09/06/2024 12:08 PM EDT Other ascites BACTERIAL CULTURE AND GRAM STAIN, STERILE BODY FLUID Routine 09/06/2024 11:53 AM EDT Hepatic encephalopathy (HCC) Decompensated cirrhosis (HCC) Ascites due to alcoholic cirrhosis (HCC) Pleural effusion BACTERIAL CULTURE, TISSUE AND WOUND, ANAEROBIC Routine 09/06/2024 11:53 AM EDT Hepatic encephalopathy (HCC) Decompensated cirrhosis (HCC) Ascites due to alcoholic cirrhosis (HCC) Pleural effusion STAFF REVIEW PROREV NO CHARGE Routine 09/06/2024 11:53 AM EDT Hepatic encephalopathy (HCC) Decompensated cirrhosis (HCC) Ascites due to alcoholic cirrhosis (HCC) Pleural effusion BF MANUAL DIFF Routine 09/06/2024 11:53 AM EDT Hepatic encephalopathy (HCC) Decompensated cirrhosis (HCC) Ascites due to alcoholic cirrhosis (HCC) Pleural effusion CYTOLOGY NON-CLAIMS DIRECTOR Routine 09/06/2024 11:53 AM EDT Hepatic encephalopathy (HCC) Decompensated cirrhosis (HCC) Ascites due to alcoholic cirrhosis (HCC) Pleural effusion BODY FLUID CELL COUNT Routine 09/06/2024 11:53 AM EDT Hepatic encephalopathy (HCC) Decompensated cirrhosis (HCC) Ascites due to alcoholic cirrhosis (HCC) Pleural effusion VENOUS BLOOD GASES STAT 09/06/2024 10:45 AM EDT GLUCOSE, BLOOD (POC) Routine 09/06/2024 8:11 AM EDT PROTHROMBIN TIME Routine 09/06/2024 2:53 AM EDT MAGNESIUM BLD Routine 09/06/2024 2:53 AM EDT COMPREHENSIVE METABOLIC PANEL Routine 09/06/2024 2:53 AM EDT SODIUM/NA BLD Timed 09/06/2024 2:53 AM EDT COMPLETE BLOOD COUNT Routine 09/06/2024 2:52 AM EDT XR ABDOMEN 1V SUPINE STAT 09/05/2024 11:26 PM EDT GLUCOSE, BLOOD (POC) Routine 09/05/2024 8:33 PM EDT GLUCOSE, BLOOD (POC) Routine 09/05/2024 4:56 PM EDT LIPASE BLD Add-on 09/05/2024 3:29 PM EDT BASIC METABOLIC PANEL Add-on 09/05/2024 3:29 PM EDT SODIUM/NA BLD Timed 09/05/2024 3:29 PM EDT GLUCOSE, BLOOD (POC) Routine 09/05/2024 11:27 AM EDT GLUCOSE, BLOOD (POC) Routine 09/05/2024 7:38 AM EDT SODIUM/NA BLD Timed 09/05/2024 3:00 AM EDT SODIUM/NA BLD Timed 09/05/2024 3:00 AM EDT SODIUM/NA BLD Timed 09/05/2024 3:00 AM EDT PROTHROMBIN TIME Routine 09/05/2024 1:53 AM EDT MAGNESIUM BLD Routine 09/05/2024 1:53 AM EDT COMPREHENSIVE METABOLIC PANEL Routine 09/05/2024 1:53 AM EDT COMPLETE BLOOD COUNT Routine 09/05/2024 1:53 AM EDT SODIUM/NA BLD Timed 09/05/2024 1:53 AM EDT GLUCOSE, BLOOD (POC) Routine 09/04/2024 8:22 PM EDT XR CHEST 1V FRONTAL PORT Routine 025 6:22 PM EDT GLUCOSE, BLOOD (POC) Routine 09/04/2024 5:38 PM EDT BF STAFF REVIEW (LAB ORDER) Routine 09/04/2024 3:28 PM EDT Hepatic encephalopathy (HCC) Decompensated cirrhosis (HCC) Ascites due to alcoholic cirrhosis (HCC) Pleural effusion BF MANUAL DIFF Routine 09/04/2024 3:28 PM EDT Hepatic encephalopathy (HCC) Decompensated cirrhosis (HCC) Ascites due to alcoholic cirrhosis (HCC) Pleural effusion BODY FLUID CELL COUNT Routine 09/04/2024 3:28 PM EDT Hepatic encephalopathy (HCC) Decompensated cirrhosis (HCC) Ascites due to alcoholic cirrhosis (HCC) Pleural effusion US PARACENTESIS (POC) DDI USE ONLY Routine 09/04/2024 3:17 PM EDT SODIUM/NA BLD Timed 09/04/2024 1:55 PM EDT GLUCOSE, BLOOD (POC) Routine 09/04/2024 11:39 AM EDT GLUCOSE, BLOOD (POC) Routine 09/04/2024 8:08 AM EDT SODIUM/NA BLD Timed 09/04/2024 6:28 AM EDT SODIUM/NA BLD Timed 09/04/2024 6:28 AM EDT PROTHROMBIN TIME Routine 09/04/2024 6:28 AM EDT MAGNESIUM BLD Routine 09/04/2024 6:28 AM EDT COMPREHENSIVE METABOLIC PANEL Routine 09/04/2024 6:28 AM EDT COMPLETE BLOOD COUNT Routine 09/04/2024 6:27 AM EDT SODIUM/NA BLD Timed 09/04/2024 1:14 AM EDT PARACENTESIS/GASTRO Routine 09/04/2024 SODIUM/NA BLD Timed 09/03/2024 10:35 PM EDT GLUCOSE, BLOOD (POC) Routine 09/03/2024 8:41 PM EDT SODIUM RANDOM URINE Routine 09/03/2024 6 :53 PM EDT OSMOLALITY URINE Routine 09/03/2024 6:52 PM EDT GLUCOSE, BLOOD (POC) Routine 09/03/2024 5:39 PM EDT GLUCOSE, BLOOD (POC) Routine 09/03/2024 4:21 PM EDT GLUCOSE, BLOOD (POC) Routine 09/03/2024 12:27 PM EDT GLUCOSE, BLOOD (POC) Routine 09/03/2024 8:02 AM EDT PROTHROMBIN TIME Routine 09/03/2024 5:37 AM EDT MAGNESIUM BLD Routine 09/03/2024 5:37 AM EDT COMPREHENSIVE METABOLIC PANEL Routine 09/03/2024 5:37 AM EDT COMPLETE BLOOD COUNT Routine 09/03/2024 5:37 AM EDT GLUCOSE, BLOOD (POC) Routine 09/02/2024 11:22 PM EDT GLUCOSE, BLOOD (POC) Routine 09/02/2024 5:31 PM EDT MRI LIVER WO/W IVCON Routine 09/02/2024 3:02 PM EDT GLUCOSE, BLOOD (POC) Routine 09/02/2024 1:09 PM EDT SURGICAL PATHOLOGY Routine 09/02/2024 11:43 AM EDT Hepatic encephalopathy (HCC) Decompensated cirrhosis (HCC) Ascites due to alcoholic cirrhosis (HCC) Pleural effusion SIGMOIDOSCOPY Routine 09/02/2024 11:29 AM EDT BF MANUAL DIFF Routine 09/02/2024 11:06 AM EDT Hepatic encephalopathy (HCC) Decompensated cirrhosis (HCC) Ascites due to alcoholic cirrhosis (HCC) Pleural effusion BODY FLUID CELL COUNT Routine 09/02/2024 11:06 AM EDT Hepatic encephalopathy (HCC) Decompensated cirrhosis (HCC) Ascites due to alcoholic cirrhosis (HCC) Pleural effusion US PARACENTESIS (POC) DDI USE ONLY Routine 09/02/2024 10:40 AM EDT GLUCOSE, BLOOD (POC) Routine 09/02/2024 8:49 AM EDT PROTHROMBIN TIME Routine 09/02/2024 8:24 AM EDT MAGNESIUM BLD Routine 09/02/2024 8:24 AM EDT COMPREHENSIVE METABOLIC PANEL Routine 09/02/2024 8:24 AM EDT COMPLETE BLOOD COUNT Routine 09/02/2024 8:24 AM EDT BASIC METABOLIC PANEL Routine 09/02/2024 5:53 AM EDT PARACENTESIS/GASTRO Routine 09/02/2024 GLUCOSE, BLOOD (POC) Routine 09/01/2024 8:51 PM EDT GLUCOSE, BLOOD (POC) Routine 09/01/2024 5:03 PM EDT ECG COMPLETE Routine 09/01/2024 2:30 PM EDT GLUCOSE, BLOOD (POC) Routine 09/01/2024 11:[address] CHEST WO IVCON Routine 09/01/2024 10:34 AM EDT PROTHROMBIN TIME Routine 09/01/2024 8:39 AM EDT MAGNESIUM BLD Routine 09/01/2024 8:39 AM EDT COMPREHENSIVE METABOLIC PANEL Routine 09/01/2024 8:39 AM EDT COMPLETE BLOOD COUNT Routine 09/01/2024 8:39 AM EDT GLUCOSE, BLOOD (POC) Routine 09/01/2024 8:26 AM EDT GLUCOSE, BLOOD (POC) Routine 08/31/2024 8:37 PM EDT GLUCOSE, BLOOD (POC) Routine 08/31/2024 4:43 PM EDT GLUCOSE, BLOOD (POC) Routine 08/31/2024 11:34 AM EDT SURGICAL PATHOLOGY Routine 08/31/2024 9: 11 AM EDT Hepatic encephalopathy (HCC) Decompensated cirrhosis (HCC) Ascites due to alcoholic cirrhosis (HCC) Pleural effusion COLONOSCOPY SCREENING Routine 08/31/2024 8:53 AM EDT EGD DIAGNOSTIC Routine 08/31/2024 8:52 AM EDT GLUCOSE, BLOOD (POC) Routine 08/31/2024 7:21 AM EDT TYPE + SCREEN Routine 08/31/2024 7:02 AM EDT PROTHROMBIN TIME Routine 08/31/2024 7:02 AM EDT MAGNESIUM BLD Routine 08/31/2024 7:02 AM EDT COMPREHENSIVE METABOLIC PANEL Routine 08/31/2024 7:02 AM EDT COMPLETE BLOOD COUNT Routine 08/31/2024 7:02 AM EDT GLUCOSE, BLOOD (POC) Routine 08/30/2024 8:17 PM EDT GLUCOSE, BLOOD (POC) Routine 08/30/2024 4:39 PM EDT GLUCOSE, BLOOD (POC) Routine 08/30/2024 11:55 AM EDT GLUCOSE, BLOOD (POC) Routine 08/30/2024 8:55 AM EDT PROTHROMBIN TIME Routine 08/30/2024 8:02 AM EDT MAGNESIUM BLD Routine 08/30/2024 3:20 AM EDT COMPREHENSIVE METABOLIC PANEL Routine 08/30/2024 3:20 AM EDT COMPLETE BLOOD COUNT Routine 08/30/2024 3:20 AM EDT MRI LIVER WO/W IVCON Routine 08/29/2024 10:02 PM EDT GLUCOSE, BLOOD (POC) Routine 08/29/2024 7:43 PM EDT GLUCOSE, BLOOD (POC) Routine 08/29/2024 5:21 PM EDT GLUCOSE, BLOOD (POC) Routine 08/29/2024 12:07 PM EDT RENAL FUNCTION PANEL Timed Stat 08/29/2024 10:11 AM EDT COMPLETE BLOOD COUNT STAT 08/29/2024 12:47 AM EDT VENOUS BLOOD GASES STAT 08/29/2024 12:46 AM EDT PHOSPHORUS INORGANIC STAT 08/29/2024 12:46 AM EDT RENAL FUNCTION PANEL Timed Stat 08/29/2024 12:46 AM EDT BASIC METABOLIC PANEL STAT 08/28/2024 10:12 PM EDT PROTHROMBIN TIME STAT 08/28/2024 10:12 PM EDT HEPATIC FUNCTION PNL STAT 08/28/2024 10:12 PM EDT RENAL FUNCTION PANEL Timed Stat 08/28/2024 10:12 PM EDT MAGNESIUM BLD STAT 08/28/2024 10:12 PM EDT VENOUS BLOOD GASES STAT 08/28/2024 1: 48 PM EDT RENAL FUNCTION PANEL Timed Stat 08/28/2024 1:48 PM EDT GLUCOSE, BLOOD (POC) Routine 08/28/2024 11:30 AM EDT ALLOGEN HLA-AB SUM RPT Routine 8:43 AM EDT RENAL FUNCTION PANEL Timed Stat 08/28/2024 5:35 AM EDT MAGNESIUM BLD Routine 08/28/2024 5:35 AM EDT COMPLETE BLOOD COUNT Routine 08/28/2024 5:35 AM EDT AMMONIA, ARTERIAL STAT 08/28/2024 12:15 AM EDT PROTHROMBIN TIME STAT 08/27/2024 11:39 PM EDT HEPATIC FUNCTION PNL STAT 08/27/2024 11:39 PM EDT RENAL FUNCTION PANEL Timed Stat 08/27/2024 11:39 PM EDT GLUCOSE, BLOOD (POC) Routine 08/27/2024 11:28 PM EDT SODIUM RANDOM URINE STAT 08/27/2024 11:15 PM EDT OSMOLALITY URINE STAT 08/27/2024 11:15 PM EDT URINALYSIS (WITH MICROSCOPIC) WITH CULTURE IF INDICATED STAT 08/27/2024 11:15 PM EDT LIVER REC INIT W/U Routine 08/27/2024 8: 42 PM EDT RENAL FUNCTION PANEL Timed Stat 08/27/2024 8:42 PM EDT CYSTATIN C STAT 08/27/2024 8:42 PM EDT OSMOLALITY BLD STAT 08/27/2024 8:42 PM EDT US KIDNEY/BLADDER Routine 08/27/2024 6:1 7 PM EDT GLUCOSE, BLOOD (POC) Routine 08/27/2024 6:04 PM EDT XR ABDOMEN 1V SUPINE STAT 08/27/2024 5:08 PM EDT STAPHYLOCOCCUS AUREUS & MRSA SCREEN, PCR, NASAL Routine 08/27/2024 3:09 PM EDT VENOUS BLOOD GASES STAT 08/27/2024 3: 06 PM EDT MAGNESIUM BLD STAT 08/27/2024 3:06 PM EDT COMPLETE BLOOD COUNT STAT 08/27/2024 3:06 PM EDT COMPREHENSIVE METABOLIC PANEL STAT 08/27/2024 3:06 PM EDT PHOSPHATIDYLETHANOL (PETH) Routine 08/27/2024 3:06 PM EDT XR CHEST 1V FRONTAL PORT STAT 025 3:01 PM EDT GLUCOSE, BLOOD (POC) Routine 08/27/2024 2:[address] BRAIN WO IVCON STAT 08/27/2024 9:[address] LUMBAR SPINE WO IVCON STAT 025 9:[address] THORACIC SPINE WO IVCON STAT 08/27/2024 9:51 AM EDT US CHEST (POC) H23 USE ONLY Routine 08/27/2024 9:48 AM EDT ALLOGEN HLA-AB SUM RPT Routine 8:43 AM EDT GLUCOSE, BLOOD (POC) Routine 08/27/2024 8:34 AM EDT RENAL FUNCTION PANEL Routine 08/27/2024 8:10 AM EDT COMPLETE BLOOD COUNT Routine 08/27/2024 8:10 AM EDT AMMONIA BLD Routine 08/27/2024 8:10 AM EDT VENOUS BLOOD GASES Routine 08/27/2024 8: 10 AM EDT ECG COMPLETE STAT 08/27/2024 7:31 AM EDT LIVER REC HLA AB SCREEN Routine 08/28/19 4:41 AM EDT PHOSPHATIDYLETHANOL (PETH) Routine 08/27/2024 4:41 AM EDT SODIUM/NA BLD Routine 08/27/2024 4:41 AM EDT PROTHROMBIN TIME Routine 08/27/2024 4:41 AM EDT PHOSPHORUS INORGANIC Routine 08/27/2024 4:41 AM EDT MAGNESIUM BLD Routine 08/27/2024 4:41 AM EDT COMPREHENSIVE METABOLIC PANEL Routine 08/27/2024 4:41 AM EDT COMPLETE BLOOD COUNT Routine 08/27/2024 4:41 AM EDT SODIUM RANDOM URINE Routine 08/26/2024 1 :27 PM EDT US CHEST (POC) H23 USE ONLY Routine 08/26/2024 11:38 AM EDT BF MANUAL DIFF Routine 08/26/2024 9:01 AM EDT Hepatic encephalopathy (HCC) Decompensated cirrhosis (HCC) Ascites due to alcoholic cirrhosis (HCC) Pleural effusion BODY FLUID CELL COUNT Routine 08/26/2024 9:01 AM EDT Hepatic encephalopathy (HCC) Decompensated cirrhosis (HCC) Ascites due to alcoholic cirrhosis (HCC) Pleural effusion US PARACENTESIS (POC) DDI USE ONLY Routine 08/26/2024 8:42 AM EDT Other ascites PROTHROMBIN TIME Routine 08/26/2024 3:24 AM EDT PHOSPHORUS INORGANIC Routine 08/26/2024 3:24 AM EDT MAGNESIUM BLD Routine 08/26/2024 3:24 AM EDT COMPREHENSIVE METABOLIC PANEL Routine 08/26/2024 3:24 AM EDT COMPLETE BLOOD COUNT Routine 08/26/2024 3:24 AM EDT PARACENTESIS/GASTRO Routine 08/26/2024 CA 19-9 BLD Add-on 08/25/2024 3:17 AM EDT SED RATE WESTERGREN Add-on 08/25/2024 3 :17 AM EDT LD LACTATE DEHYDRO Routine 08/25/2024 3: 17 AM EDT PROTHROMBIN TIME Routine 08/25/2024 3:17 AM EDT PHOSPHORUS INORGANIC Routine 08/25/2024 3:17 AM EDT MAGNESIUM BLD Routine 08/25/2024 3:17 AM EDT COMPREHENSIVE METABOLIC PANEL Routine 08/25/2024 3:17 AM EDT COMPLETE BLOOD COUNT Routine 08/25/2024 3:17 AM EDT MRI CERVICAL SPINE WO/W IVCON Routine 08/24/2024 6:27 PM EDT MRI THORACIC SPINE WO/W IVCON Routine 08/24/2024 6:27 PM EDT MRI LUMBAR SPINE WO/W IVCON Routine 08/24/2024 6:27 PM EDT ALPHA FETOPROTEIN BL Routine 08/24/2024 11:34 AM EDT PROTHROMBIN TIME Routine 08/24/2024 8:42 AM EDT PHOSPHORUS INORGANIC Routine 08/24/2024 8:41 AM EDT MAGNESIUM BLD Routine 08/24/2024 8:41 AM EDT COMPREHENSIVE METABOLIC PANEL Routine 08/24/2024 8:41 AM EDT COMPLETE BLOOD COUNT Routine 08/24/2024 8:41 AM EDT SEPSIS LACTATE STAT 08/24/2024 1:03 AM EDT [facility] ED NOTEWRITER PROCEDURE PARACENTESIS Routine 08/23/2024 6:44 PM EDT BACTERIAL CULTURE, BLOOD Routine 025 6:30 PM EDT BACTERIAL CULTURE, BLOOD Routine 025 6:29 PM EDT TOX SCREEN ROUT UR Routine 08/23/2024 6: 19 PM EDT BACTERIAL CULTURE AND GRAM STAIN, STERILE BODY FLUID STAT 08/23/2024 5:51 PM EDT STAFF REVIEW PROREV NO CHARGE Routine 08/23/2024 5:51 PM EDT BF MANUAL DIFF STAT 08/23/2024 5:51 PM EDT BODY FLUID CELL COUNT STAT 08/23/2024 5:51 PM EDT US ABDOMEN OTHER (POC) ED USE ONLY STAT 08/23/2024 5:[address] BRAIN WO IVCON STAT 08/23/2024 5:2 9 PM EDT URINALYSIS (WITH MICROSCOPIC) WITH CULTURE IF INDICATED STAT 08/23/2024 4:02 PM EDT XR CHEST 1V FRONTAL PORT STAT 025 2:00 PM EDT PROTHROMBIN TIME STAT 08/23/2024 1:27 PM EDT SEPSIS LACTATE W/ REFLEX (INITIAL) STAT 08/23/2024 1:14 PM EDT AMMONIA BLD STAT 08/23/2024 1:14 PM EDT CBC + DIFF STAT 08/23/2024 1:14 PM EDT COMPREHENSIVE METABOLIC PANEL STAT 08/23/2024 1:14 PM EDT LIPID PANEL, FASTING Routine 04/29/2024 8:17 AM EST Lesion of liver greater than 1 cm in diameter Alcoholic cirrhosis of liver with ascites (HCC) Liver transplant candidate Metabolic dysfunction-associa jamila steatotic liver disease (MASLD) from Last 3 Months or Most Recently Relevant to Health Maintenance Results * MAGNESIUM (11/18/2024 8:44 AM EDT) Only the most recent of80 resultswithin the time period is included. Magnesium 1.9 1.5 - 2.5 mg/dL [facility] Comment: Test Performed at: [facility] [address] [place] [address] [address] AMELIA AGUILAR Blood BLOOD SPECIMEN / Unknown 11/18/2024 8:44 AM EDT 11/18/2024 3:32 PM EDT Shelli Boo COLLAR POINTER.[employer]TS EQUIPMENT REPAIRER LABORATORY Final R esult Performing Organization Address City/[facility]/ZIP Co de Phone Number [facility] [address] [place] [address] [employer] [address] [place] [phone] * PHOSPHORUS INORGANIC (11/18/2024 8:44 AM EDT) Only the most recent of58 resultswithin the time period is included. Phosphorus 4.1 2.1 - 4.3 mg/dL [employer] Comment: Test Performed at: [employer] [address] [place] [phone] [address] AMELIA AGUILAR Blood BLOOD SPECIMEN / Unknown 11/18/2024 8:44 AM EDT 11/18/2024 3:32 PM EDT Shelli Boo [employer]LLAR POINTER[employer] EQUIPMENT REPAIRER LABORAT[facility] Final R esult Performing Organization Address City/[facility]/ZIP Co de Phone Number [facility] [address] [place] [address] [employer] [address] [place] [phone] * (ABNORMAL) COMPREHENSIVE METABOLIC PANEL (11/18/2024 8:44 AM EDT) Only the most recent of74 resultswithin the time period is included. Glucose 128(H) 65 - 99 mg/dL [employer] Comment: Fasting reference interval For someone without known diabetes, a glucose value >125 mg/dL indicates that they may have diabetes and this should be confirmed with a follow-up test. BUN 11 7 - 25 mg/dL [employer] Creatinine 1.21 0.70 - 1.28 mg/dL [employer] EGFR 64 > OR = 60 mL/min/1. 73m2 [facility] BUN/Creat Ratio SEE NOTE: (calc) [employer] Comment: Not Reported: BUN and Creatinine are within reference range. Sodium 131(L) 135 - 146 mmol/L [facility] Potassium 5.6(H) 3.5 - 5.3 mmol/L [facility] Chloride 98 98 - 110 mmol/L [facility] CO2 25 20 - 32 mmol/L [facility] Calcium 8.5(L) 8.6 - 10.3 mg/dL [facility] Protein, Total 5.8(L) 6.1 - 8.1 g/dL [facility] Albumin 3.0(L) 3.6 - 5.1 g/dL [facility] Globulin 2.8 1.9 - 3.7 g/dL (calc) [facility] Alb/Glob Ratio 1.1 1.0 - 2.5 (calc) [facility] Bilirubin, Total 0.4 0.2 - 1.2 mg/dL [facility] Alkaline Phosphatase 134 35 - 144 U/L [facility] AST 25 10 - 35 U/L [facility] ALT 17 9 - 46 U/L [facility] Comment: Test Performed at: [facility] [address] [place] [phone] [address] AMELIA AGUILAR Blood BLOOD SPECIMEN / Unknown 11/18/2024 8:44 AM EDT 11/18/2024 3:32 PM EDT us Shelli Boo [employer] REPAIRER LABORAT[facility] Final R esult [facility] [address] [place] [address] [facility] [address] [place] [phone] * (ABNORMAL) COMPLETE BLOOD COUNT AND DIFFERENTIAL (11/18/2024 8:44 AM EDT) Only the most recent of56 resultswithin the time period is included. WBC 2.3(L) 3.8 - 10.8 Thousand/ uL [facility] RBC 3.15(L) 4.20 - 5.80 Million/u L [facility] Hemoglobin 9.4(L) 13.2 - 17.1 g/dL [facility] Hematocrit 29.7(L) 38.5 - 50.0 % [facility] MCV 94.3 80.0 - 100.0 fL [facility] MCH 29.8 27.0 - 33.0 pg [facility] MCHC 31.6(L) 32.0 - 36.0 g/dL [facility] Comment: For adults, a slight decrease in the calculated MCHC value (in the range of 30 to 32 g/dL) is most likely not clinically significant; however, it should be interpreted with caution in correlation with other red cell parameters and the patient's clinical condition. RDW-CV 18.7(H) 11.0 - 15.0 % [facility] Platelet Count 480(H) 140 - 400 Thousand/ uL [facility] MPV 8.1 7.5 - 12.5 fL [facility] Abs Neut (ANC) 1,833 1,500 - 7,800 cells/uL [facility] Abs Lymph 244(L) 850 - 3,900 cells/uL [facility] Abs [place] 81(L) 200 - 950 cells/uL [facility] Abs Eosin 9(L) 15 - 500 cells/uL [facility] Abs Baso 133 0 - 200 cells/uL [facility] Neut% 79.7 % [facility] Lymph% 10.6 % [facility] [place]% 3.5 % [facility] Eosin% 0.4 % [facility] Baso% 5.8 % [facility] Diff Comment SEE NOTE [facility] Comment: Review of peripheral smear confirms automated results. REPORT COMMENT: FASTING:YES MULTIPLE TESTING PRIORITIES; ROUTINE TESTING TO FOLLOW. Test Performed at: [facility] [address] [place] [address] [address] AMELIA AGUILAR Blood BLOOD SPECIMEN / Unknown 11/18/2024 8:44 AM EDT 11/18/2024 3:32 PM EDT us Shelli Boo [employer]LL[employer] EQUIPMENT REPAIRER LABORATORY Final R esult [facility] [address] [place] [address] [facility] [address] [place] [phone] * STAFF REVIEW (11/15/2024 5:30 AM EDT) Pathologist [facility] Reviewed MD KAT 11/15/2024 7:1 3 PM EDT [facility] Blood BLOOD SPECIMEN / Unknown 11/15/2024 5:30 AM EDT 11/15/2024 9:05 AM EDT Camila Meyers COLLAR POINTER.SP[employer] EQUIPMENT REPAIRER LABORATORY Final Re sult Performing Organization Address [facility] Co de Phone Number [facility] [address] [address], [place] * PATHOLOGIST INTERPRETATION CBC AND DIFFERENTIAL (LAB REFLEX ORDER-NO BILL) (11/15/2024 5:30 AM EDT) Pathologist [facility] Pathologist Interpretation, CBCDIF Normocytic anemia with slight polychromasia Leukopenia with absolute lymphopenia Thrombocytosis 11/15/2024 7:18 PM EDT [facility] CBCDIF Pathologist Reviewed by Reviewed by Leona Mak MD 11/15/2024 7:18 PM EDT [facility] Blood BLOOD SPECIMEN / Unknown 11/15/2024 5:30 AM EDT 11/15/2024 9:05 AM EDT us Camila Meyers COLLAR POINTER.SP[employer] EQUIPMENT REPAIRER LABORATORY Final Re sult [facility] [address] [address], [place] * (ABNORMAL) NT PRO BNP (11/14/2024 3:30 AM EDT) Only the most recent of10 resultswithin the time period is included. Pathologist [facility] NT Pro BNP 543(H) <125 pg/mL 11/14/2024 11:01 AM EDT [facility] Blood BLOOD SPECIMEN / Unknown 11/14/2024 3:30 AM EDT 11/14/2024 9:09 AM EDT David Cruz LABORATORY Final Result [facility] [address] [place] [address], [place] * TACROLIMUS/FK-506 BL (11/14/2024 3:30 AM EDT) Only the most recent of53 resultswithin the time period is included. Tacrolimus/FK506 10.2 5.0 - 20.0 ng/mL 11/14/2024 5:31 PM EDT [facility] Comment:Individualized targe t levels for a [...] situation. Test performed by chemiluminescent immunoassay using [employer] Alinity i. Blood BLOOD SPECIMEN / Unknown Venipuncture / Unknown 11/14/2024 3:30 AM EDT 11/14/2024 9:09 AM EDT [facility] Final Result Performing Organization Address [facility] Co de Phone Number [facility] [address] [address], [place] * GGT (11/14/2024 3:30 AM EDT) Only the most recent of8 resultswithin the time period is included. GGT 70 10 - 70 U/L 11/14/2024 5:57 PM EDT [facility] Blood BLOOD SPECIMEN / Unknown Venipuncture / Unknown 11/14/2024 3:30 AM EDT 11/14/2024 9:09 AM EDT [facility] Final Result [facility] [address] [place] [phone], * (ABNORMAL) C-REACTIVE PROTEIN (11/14/2024 3:30 AM EDT) Only the most recent of14 resultswithin the time period is included. CRP 20.7(H) <0.9 mg/dL 11/14/2024 11:32 AM EDT [facility] Blood BLOOD SPECIMEN / Unknown 11/14/2024 3:30 AM EDT 11/14/2024 9:09 AM EDT David Cruz DO LABORATORY Final Result Performing Organization Address [facility] Co de Phone Number [facility] [address] [place] [address], * Airway (11/13/2024 2:45 PM EDT) Narrative César Mcnamara APRN.HEAD PORTER - 11/13/2024 2:45 PM EDT César Mcnamara APRN.HEAD PORTER 11/13/2024 3:11 PM Airway General Information Procedure Start Time/Medication Administration: 11/13/2024 2:45 PM Procedure End Time: 11/13/2024 2:49 PM Patient location during procedure: OR Timeout Performed Pre-procedure: timeout performed Consent Obtained: Yes Patient identity confirmed: arm band and patient Staffing HEAD PORTER: César Mcnamara APRN.HEAD PORTER Performed by: RADHA Indications and Patient Condition Indications for airway management: anesthesia Preoxygenated: yes anesthesia circuit Patient position: sniffing Method: asleep Difficult Mask: No Airway Accessory: oral airway Final Airway Details Final airway type: endotracheal airway Final Endotracheal Airway: ETT Cuffed: yes Successful intubation technique: video laryngoscopy Devices used: Wingz Endotracheal tube insertion site: oral Blade size: #4 ETT size (mm): 7.5 Measured from: lips Measurement (cm): 23 Placement verified by: capnometry Cormack-Lehane Classification: grade I - full view of glottis Number of attempts at approach: 1 Airway not difficult Tristan Cardona MD ANESTHESIA ORDERABLES Final Result * ERCP (11/13/2024 1:11 PM EDT) Anatomical Region Laterality Modality Other 11/13/2024 1:11 PM EDT Narrative 11/13/2024 3:28 PM EDT Q3 Patient Name: Charles Blandon Procedure Date: 11/13/2024 1:11 PM Date of : 1955 Admit Type: Outpatient Age: 69 Gender: Male Note Status: Finalized Attending MD: Jane Correia MD, [id number] Procedure: ERCP Indications: Common bile duct stone(s), [...] administered by the anesthesia team. Findings: A metalworking specialist film of the abdomen was obtained. Surgical [...] none. Recommendation: - Discharge patient to a usp. - Resume previous diet. - Cipro (ciprofloxacin) 500 mg PO BID for 5 days. - Repeat ERCP for stent removal n 3 months. Procedure Code(s): --- Professional --- 86171, Endoscopic retrograde cholangiopancreatography (ERCP); with removal of calculi/debris from biliary/pancreatic duct(s) 55327, Endoscopic catheterization of the biliary ductal system, radiological supervision and interpretation Diagnosis Code(s): --- Professional --- Z96.89, Presence of other specified functional implants K80.51, Calculus of bile duct without cholangitis or cholecystitis with obstruction Z09, Encounter for follow-up examination after completed treatment for conditions other than malignant neoplasm Z94.4, Liver transplant status CPT copyright 2020 [employer] [place] [employer]. All rights reserved. Attending Participation: I was present and participated during the entire procedure, including non-david portions. Scope In: 2:57:12 PM Scope Out: 3:17:12 PM MD Jane Alexander MD 11/13/2024 3:25:50 PM This report has been signed electronically by Jane Correia MD Number of Addenda: 0 Note Initiated On: 11/13/2024 1:11 PM Desiree Cruz PA-C DIGESTIVE DISEASE Final Resu lt * CYTOMEGALOVIRUS (CMV) DNA, QUANTITATIVE PCR, PLASMA (11/11/2024 5:06 AM EDT) Only the most recent of11 resultswithin the time period is included. Pathologist [facility] CMV DNA Not detected Not Detected MIKA ANN-MARIE [address]00 11/11/2024 10:07 PM EDT [facility] Blood BLOOD SPECIMEN / Unknown Venipuncture / Unknown 11/11/2024 5:06 AM EDT 11/11/2024 8:54 AM EDT [facility] - 11/11/2024 10:07 PM EDT ann-marie CMV is an in vitro nucleic acid amplification test for the quantitation of cytomegalovirus (CMV) DNA in human EDTA plasma. The linear range of the assay is 34.5 to 10,000,000 IU/mL (1.54 - 7.00 log IU/mL). The lower limit of detection of the assay is 34.5 IU/mL. David Cruz DO LABORATORY Final Result [facility] [address] [place] [address], * (ABNORMAL) RENAL FUNCTION PANEL (11/09/2024 6:05 AM EDT) Only the most recent of14 resultswithin the time period is included. Pathologist [facility] Albumin 3.0(L) 3.9 - 4.9 g/dL 11/10/2024 9:11 AM EDT [facility] Calcium, Total 8.6 8.5 - 10.2 mg/dL 11/10/2024 9:11 AM EDT [facility] Phosphorus 4.2 2.7 - 4.8 mg/dL 11/10/2024 9:11 AM EDT [facility] Glucose 85 74 - 99 mg/dL 11/10/2024 9:11 AM [facility] Comment: The [place] [employer] (ADA) provides guidance for [...] Standards of Medical Care in Diabetes 2016, [place] [employer]. Diabetes Care. 2016.39(Suppl 1). BUN 18 9 - 24 mg/dL 11/10/2024 9:11 AM [facility] Creatinine 1.46(H) 0.73 - 1.22 mg/dL 11/10/2024 9:11 AM [facility] Sodium 134(L) 136 - 144 mmol/L 11/10/2024 9:11 AM [facility] Potassium 5.0 3.7 - 5.1 mmol/L 11/10/2024 9:11 AM [facility] Chloride 99 98 - 107 mmol/L 11/10/2024 9:11 AM [facility] CO2 25 22 - 30 mmol/L 11/10/2024 9:11 AM [facility] Anion Gap 10 8 - 15 mmol/L 11/10/2024 9:11 AM [facility] Estimated Glomerular Filtration Rate 51(L) >=60 mL/min/1. 73m 11/10/2024 9:11 AM [facility] Comment:Estimated Glomerular Filtration Rate (eGFR) is [...] AM EDT 11/10/2024 8:22 AM EDT Chelsea Trinidad MD LABORATORY Final Result [facility] [address] [place] [address], * (ABNORMAL) URINALYSIS, REFLEX MICROSCOPIC (11/08/2024 6:23 PM EDT) Color Yellow yellow 11/08/2024 10:10 PM [facility] Clarity Clear Clear 11/08/2024 10:10 PM [facility] Glucose, Urine Negative Trace, Negative 11/08/2024 10:10 PM [facility] Bilirubin, Urine Negative Negative 11/09/19 10:10 PM [facility] Ketones, Urine Negative Negative, Trace 11/08/2024 10:10 PM [facility] Specific [place], Ur 1.021 1.005 - 1.030 11/08/2024 10:10 PM [facility] Hemoglobin/Blood ,Ur Negative Negative, Trace 11/08/2024 10:10 PM [facility] pH, Urine 6.5 5.0 - 8.0 11/08/2024 10:10 PM [facility] Protein, Urine Trace Trace, Negative 11/08/2024 10:10 PM [facility] Urobilinogen Normal Normal 11/08/2024 10:10 PM [facility] Nitrites Negative Negative 11/08/2024 10:10 PM [facility] Leuk Esterase Negative Negative, 25 Eder/uL 11/08/2024 10:10 PM [facility] WBC, Urine 0-5 /HPF 0-5 /HPF 11/08/2024 10:10 PM [facility] RBC, Urine 0-3 /HPF 0-3 /HPF 11/08/2024 10:10 PM [facility] Bacteria Few(A) None Seen /HPF 11/08/2024 10:10 PM [facility] Squamous Epithelial Cells Few /HPF 11/08/2024 10:10 PM [facility] Casts, Hyaline >10 /LPF(A) 0 /LPF 10:10 PM [facility] Urine URINE SPECIMEN / Unknown 11/08/2024 6:23 PM EDT 11/08/2024 9:55 PM EDT us Betty Dias DO LABORATORY Final Result [facility] [address] [place] [address], [place] * US KIDNEY/BLADDER (11/08/2024 1:00 PM EDT) Anatomical Region Laterality Modality Abdomen Ultrasound 11/08/2024 1:00 PM EDT Impressions 11/08/2024 1:54 PM EDT IMPRESSION: Sonographically unremarkable the kidneys. Complex fluid, with septations noted in the anterior lower pelvis. Telegrapher Agent: SRINI Transcribe Date/Time: Nov 08 2024 1:49P Dictated by : CHARIS WHALEN MD This examination was interpreted and the report reviewed and electronically signed by: CHARIS WHALEN MD on Nov 08 2024 1:52PM EST Narrative 11/08/2024 1:54 PM EDT * * *Final Report* * * DATE OF EXAM: Nov 08 2024 1:00PM S0U 1055 - US KIDNEY/BLADDER / PROCEDURE REASON: PERLITA * * * * Physician Interpretation * [...] identified, likely representing complex fluid. Procedure Note Provider, [facility] [place] - 11/08/2024 * * *Final Report* * * DATE OF EXAM: Nov 08 2024 1:00PM S0U 1055 - US KIDNEY/BLADDER / PROCEDURE REASON: PERLITA * * * * Physician Interpretation * [...] region is identified, likely representing complex fluid. IMPRESSION IMPRESSION: Sonographically unremarkable the kidneys. Complex fluid, with septations noted in the anterior lower pelvis. Telegrapher Agent: PSCB Transcribe Date/Time: Nov 08 2024 1:49P Dictated by : CHARIS WHALEN MD This examination was interpreted and the report reviewed and electronically signed by: CHARIS WHALEN MD on Nov 08 2024 1:52PM EST us [facility] Provider [facility] Final Result * (ABNORMAL) BASIC METABOLIC PANEL (11/08/2024 5:21 AM EDT) Only the most recent of4 resultswithin the time period is included. [facility] Signature Glucose 92 74 - 99 mg/dL 11/08/2024 8:26 AM EDT [facility] Comment: The [place] [employer] (ADA) provides guidance for [...] Standards of Medical Care in Diabetes 2016, [place] [employer]. Diabetes Care. 2016.39(Suppl 1). BUN 17 9 - 24 mg/dL 11/08/2024 8:26 AM EDT [facility] Creatinine 1.55(H) 0.73 - 1.22 mg/dL 11/08/2024 8:26 AM EDT [facility] Sodium 135(L) 136 - 144 mmol/L 11/08/2024 8:26 AM EDT [facility] Potassium 4.6 3.7 - 5.1 mmol/L 11/08/2024 8:26 AM EDT [facility] Chloride 97(L) 98 - 107 mmol/L 11/08/2024 8:26 AM EDT [facility] CO2 27 22 - 30 mmol/L 11/08/2024 8:[facility] Anion Gap 11 8 - 15 mmol/L 11/08/2024 8:26 AM EDT [facility] Calcium, Total 9.0 8.5 - 10.2 mg/dL 11/08/2024 8:26 AM EDT [facility] Estimated Glomerular Filtration Rate 48(L) >=60 mL/min/1. 73m 11/08/2024 8:26 AM [facility] Comment:Estimated Glomerular Filtration Rate (eGFR) is [...] us Betty Dias DO LABORATORY Final Result [facility] [address] [place] [address], * (ABNORMAL) ALBUMIN (11/08/2024 5:21 AM EDT) Albumin 3.4(L) 3.9 - 4.9 g/dL 11/08/2024 8:26 AM EDT [facility] Blood BLOOD SPECIMEN / Unknown Venipuncture / Unknown 11/08/2024 5:21 AM EDT 11/08/2024 7:52 AM EDT us Camilajosé miguel [place] [employer] LABORATORY Final Re sult [facility] [address] [place] [address], * XR ABDOMEN 1V SUPINE (11/07/2024 2:24 PM EDT) Anatomical Region Laterality Modality Abdomen Radiographic Lisa ging 11/07/2024 2:24 PM EDT Impressions 11/07/2024 2:54 PM EDT IMPRESSION: Nonspecific, nonobstructive bowel gas pattern. Telegrapher Agent: SRINI Transcribe Date/Time: Nov 07 2024 2:50P [...] acute bony abnormalities are seen. Procedure Note Provider, [facility] [place] - 11/07/2024 * * *Final Report* * [...] fossa. No acute bony abnormalities are seen. IMPRESSION IMPRESSION: Nonspecific, nonobstructive bowel gas pattern. Telegrapher Agent: [facility] Transcribe Date/Time: Nov 07 2024 2:50P Dictated by : AMARILIS MACK MD This examination was interpreted and the report reviewed and electronically signed by: AMARILIS MACK MD on Nov 07 2024 2:52PM EST [facility] Provider RAD-PAMA Final Result * US ABDOMEN LTD (11/06/2024 3:45 PM EDT) Anatomical Region Laterality Modality Abdomen Ultrasound 11/06/2024 3:45 PM EDT Narrative 11/06/2024 [...] to moderate volume ascites containing multiple septations Telegrapher Agent: [facility] Transcribe Date/Time: Nov 06 2024 4:32P Dictated by : AMARILIS MACK MD This examination was interpreted and the report reviewed and electronically signed by: AMARILIS MACK MD on Nov 06 2024 4:33PM EST Procedure Note Provider, [facility] [place] - 11/06/2024 * * *Final Report* * [...] to moderate volume ascites containing multiple septations Telegrapher Agent: SRINI Transcribe Date/Time: Nov 06 2024 4:32P Dictated by : AMARILIS MACK MD This examination was interpreted and the report reviewed and electronically signed by: AMARILIS MACK MD on Nov 06 2024 4:33PM EST us [facility] Provider US-PAMA Final Result * XR LUMBAR 1V (11/04/2024 3:30 PM EDT) Anatomical Region Laterality Modality Radiographic Lisa ging 11/04/2024 3:30 PM EDT Narrative 11/04/2024 4:34 [...] fractures better seen on prior CT scan. Telegrapher Agent: [facility] Transcribe Date/Time: Nov 04 2024 4:31P Dictated by : AMARILIS MACK MD This examination was interpreted and the report reviewed and electronically signed by: AMARILIS MACK MD on Nov 04 2024 4:32PM EST Procedure Note Provider, [facility] [place] - 11/04/2024 * * *Final Report* * [...] fractures better seen on prior CT scan. Telegrapher Agent: [facility] Transcribe Date/Time: Nov 04 2024 4:31P Dictated by : AMARILIS MACK MD This examination was interpreted and the report reviewed and electronically signed by: AMARILIS MACK MD on Nov 04 2024 4:32PM EST us [facility] Provider RAD-PAMA Final Result * (ABNORMAL) CREATINE KINASE/CK (11/04/2024 5:10 AM EDT) Only the most recent of3 resultswithin the time period is included. CK 10(L) 51 - 298 U/L 11/04/2024 12:03 PM EDT [facility] Blood BLOOD SPECIMEN / Unknown Venipuncture / Unknown 11/04/2024 5:10 AM EDT 11/04/2024 9:37 AM EDT David Cruz DO LABORATORY Final Result [facility] [address] [place] [address], [place] * US ABDOMEN LTD (11/03/2024 1:28 PM EDT) Anatomical Region Laterality Modality Abdomen Ultrasound 11/03/2024 1:28 PM EDT Impressions 11/03/2024 2:16 PM EDT IMPRESSION: Small to moderate volume of multiloculated ascites with numerous septations is similar to prior study. Telegrapher Agent: [facility] Transcribe Date/Time: Nov 03 2024 2:13P [...] ultrasound RESULT: See Impression. - Procedure Note Provider, [facility] [place] - 11/03/2024 * * *Final Report* * [...] COMPARISON: 10/29/2024 ultrasound RESULT: See Impression. - IMPRESSION IMPRESSION: Small to moderate volume of multiloculated ascites with numerous septations is similar to prior study. [facility] Transcribe Date/Time: Nov 03 2024 2:13P Dictated by : JIM LUZ MD This examination was interpreted and the report reviewed and electronically signed by: JIM LUZ MD on Nov 03 2024 2:14PM EST us [facility] Provider US-PAMA Final Result * XR CHEST 1V FRONTAL (11/01/2024 2:39 PM EDT) Anatomical Region Laterality Modality Chest Radiographic Lisa ging 11/01/2024 2:39 PM EDT Impressions 11/04/2024 8:30 AM EDT IMPRESSION: Interval decrease in the right pleural effusion and right basilar opacities. Possible mild pulmonary vascular congestion. Telegrapher Agent: [facility] Transcribe Date/Time: Nov 04 2024 8:27A [...] silhouette. No acute osseous abnormality. Procedure Note Provider, [facility] [place] - 11/04/2024 * * *Final Report* * [...] Stable cardiomediastinal silhouette. No acute osseous abnormality. IMPRESSION IMPRESSION: Interval decrease in the right pleural effusion and right basilar opacities. Possible mild pulmonary vascular congestion. Telegrapher Agent: SRINI Transcribe Date/Time: Nov 04 2024 8:27A Dictated by : CHARIS WHALEN MD This examination was interpreted and the report reviewed and electronically signed by: CHARIS WHALEN MD on Nov 04 2024 8:28AM EST [facility] Provider RAD-PAMA Final Result * VITAMIN B12 (11/01/2024 5:01 AM EDT) Only the most recent of2 resultswithin the time period is included. Vitamin B12 878 232 - 1,245 pg/mL 11/01/2024 9:40 AM EDT [facility] Blood BLOOD SPECIMEN / Unknown Venipuncture / Unknown 11/01/2024 5:01 AM EDT 11/01/2024 7:20 AM EDT Chelsea Trinidad MD LABORATORY Final Result Performing Organization Address [facility] de Phone Number [facility] [address] * (ABNORMAL) IRON AND TIBC (11/01/2024 5:01 AM EDT) Only the most recent of2 resultswithin the time period is included. Iron 28(L) 41 - 186 ug/dL 11/01/2024 9:26 AM EDT [facility] TIBC 74(L) 232 - 386 ug/dL 11/01/2024 9:26 AM EDT [facility] Transferrin Saturation 37.8 20.0 - 55.0 % 11/01/2024 9:26 AM EDT [facility] Blood BLOOD SPECIMEN / Unknown Venipuncture / Unknown 11/01/2024 5:01 AM EDT 11/01/2024 7:20 AM EDT Chelsea Trinidad MD LABORATORY Final Result [facility] [id number] [place] [address], [place] * FOLATE, SERUM (11/01/2024 5:01 AM EDT) Only the most recent of2 resultswithin the time period is included. Pathologist [facility] Folate 9.2 >4.7 ng/mL 11/01/2024 9:40 AM EDT [facility] Blood BLOOD SPECIMEN / Unknown Venipuncture / Unknown 11/01/2024 5:01 AM EDT 11/01/2024 7:20 AM EDT Chelsea Trinidad MD LABORATORY Final Result Performing Organization Address [facility] de Phone Number [facility] [address] [place] [address], [place] * (ABNORMAL) FERRITIN (11/01/2024 5:01 AM EDT) Only the most recent of2 resultswithin the time period is included. [facility] Ferritin 5,826.0(H) 30.3 - 565.7 ng/mL 11/01/2024 10:23 AM EDT [facility] Blood BLOOD SPECIMEN / Unknown Venipuncture / Unknown 11/01/2024 5:01 AM EDT 11/01/2024 7:20 AM EDT Chelsea Trinidad MD LABORATORY Final Result Performing Organization Address [facility] de Phone Number [facility] [address] [place] [address], [place] * (ABNORMAL) MANUAL DIFFERENTIAL, BODY FLUID (10/30/2024 1:44 PM EDT) Only the most recent of8 resultswithin the time period is included. [facility] Diff Total Body Fluid 100 cells counted 10/30/2024 9:57 PM EDT [facility] Neut%, BF 52(H) 0 - 1 % 10/30/2024 9:57 PM EDT [facility] Lymph%, BF 38(H) 18 - 36 % 10/30/2024 9:57 PM EDT [facility] [place]%, BF 3 % 10/30/2024 9:57 PM EDT [facility] Macro%, BF 7(L) 64 - 80 % 10/30/2024 9:57 PM EDT [facility] Sterile Fluid/Body Fluid ASCITIC FLUID SPECIMEN / Unknown 10/30/2024 1:44 PM EDT 10/30/2024 5:56 PM EDT Gale Benoit APRN.HERNANDEZ LABORATORY Final Resu lt Performing Organization Address City/[facility]/ZIP Co de Phone Number [facility] [address] [place] [address], * BACTERIAL CULTURE AND GRAM STAIN, STERILE BODY FLUID (10/30/2024 1:44 PM EDT) Only the most recent of5 resultswithin the time period is included. Culture, Body Fld No growth MINIMUM INHIBITORY CONCENTRATIO N(VITEK) 11/05/2024 1:43 PM EDT [facility] Gram Stain No organisms seen 025 1:43 PM EDT [facility] Gram Stain Rare Polymorphonuclear leukocytes 11/05/2024 1:43 PM EDT [facility] Gram Stain Gram stain performed on cytospun specimen. 11/05/2024 1:43 PM EDT [facility] Gram Stain Gram stain from primary specimen 11/05/2024 1:43 PM EDT [facility] Sterile Fluid/Body Fluid ASCITIC FLUID SPECIMEN / Unknown 10/30/2024 1:44 PM EDT 10/30/2024 5:57 PM EDT Gale Benoit APRN.CNP MICROBIOLOGY Final Resu lt Performing Organization Address City/[facility]/ZIP Co de Phone Number [facility] [address] [facility] [place] [address], [place] * BACTERIAL CULTURE, TISSUE AND WOUND, ANAEROBIC (10/30/2024 1:44 PM EDT) Only the most recent of5 resultswithin the time period is included. Pathologist [facility] Culture, Anaerobe Negative for anaerobes. MINIMUM INHIBITORY CONCENTRATION( VITEK) 11/04/2024 11:29 AM EDT [facility] Sterile Fluid/Body Fluid ASCITIC FLUID SPECIMEN / Unknown 10/30/2024 1:44 PM EDT 10/30/2024 5:57 PM EDT us Gale Benoit COLLAR POINTER.SPORTS EQUIPMENT REPAIRER MICROBIOLOGY Final Resu lt [facility] [address] [place] [address], [place] * (ABNORMAL) BODY FLUID CELL COUNT (10/30/2024 1:44 PM EDT) Only the most recent of8 resultswithin the time period is included. Pathologist [facility] Site, BF Abdomen 10/30/2024 8:05 PM EDT [facility] Color, BF Kaylie(A) Yellow 10/30/2024 8:05 PM EDT [facility] Clarity, BF Slightly Cloudy(A) Clear 10/30/2024 8:05 PM EDT [facility] Supernatant Color, BF Yellow Yellow 10/30/2024 8:05 PM EDT [facility] Supernatant Clarity, BF Clear Clear 10/30/2024 8:05 PM EDT [facility] RBC, Body Fluid 11,000(H) <2,000 /uL 8:05 PM EDT [facility] Total Nucleated Cells, BF 42 <1,000 /uL 10/30/2024 8:05 PM EDT [facility] Sterile Fluid/Body Fluid ASCITIC FLUID SPECIMEN / Unknown 10/30/2024 1:44 PM EDT 10/30/2024 5:56 PM EDT us Gale Benoit COLLAR POINTER.SPORTS EQUIPMENT REPAIRER LABORATORY Final Resu lt Performing Organization Address City/[facility]/ZIP Co de Phone Number [facility] [address] [place] [address], [place] * US PARACENTESIS (POC) DDI USE ONLY (10/30/2024 1:34 PM EDT) 10/30/2024 1:34 PM EDT us Gale Benoit APRN.[facility] Final Resu lt [facility] * TYPE + SCREEN (10/30/2024 5:03 AM EDT) Only the most recent of16 resultswithin the time period is included. ABO O 10/30/2024 7:48 AM EDT [facility] Rh(D) Positive 10/30/2024 7:48 AM EDT [facility] Antibody Screen Negative 10/30/2024 7:48 AM EDT [facility] Type and Screen Expiration 11/02/2024 23:59 10/30/2024 7:48 AM EDT [facility] Blood BLOOD SPECIMEN / Unknown Venipuncture / Unknown 10/30/2024 5:03 AM EDT 10/30/2024 5:56 AM EDT us Desiree Cruz PA-C BLOOD BANK Final Result Performing Organization Address City/[facility]/ZIP Co de Phone Number [facility] [address] [facility] [address] [place] [id number], [place] * PARACENTESIS/GASTRO (10/30/2024) Gale Ramachandran APRN.CNP - 10/30/2024 Name: Charles Blandon Patient presents for a Paracentesis. Indication for Procedure: Ascites INFORMED CONSENT Charles Blandon Medical Record: [id number] Procedure: Paracentesis The risks, benefits and anticipated outcomes of the procedure, the risks and benefits of the alternatives to the procedure and the roles and tasks of the personnel to be involved were discussed with the patient and the patient consents to the procedure and agrees to proceed. I have verified that consent has been obtained for this procedure. Gale eBnoit APRN.CNP October 30, 2024 3:01 PM Dept of [facility] G101 UNIVERSAL PROTOCOL / SAFETY CHECKLIST Procedure to be performed: Paracentesis Sign in Communication: Completed Time Out: Team Confirms the Correct Patient, Correct Procedure, Correct Site and Site Marking, Correct Position (if applicable), Prep and Dry Time (if applicable). Time: See Nursing Documentation Affirmation of Time Out: N/A Sign Out Discussion: Completed Gale Benoit APRN.CNP Procedure performed by Gale Benoit APRN.CNP Medication: 2% Lidocaine 10cc The patient was placed in the supine position. A pocket of fluid suitable for paracentesis was marked in the right abdomen under ultrasound guidance. The skin and subcutaneous tissue was anesthetized with local anesthetic. A 15 guage Richards Needle was inserted into the abdomen and 270 cc's was removed, the ascites fluid was found to be loculated. The fluid was sent to the Lab for analysis. There were no immediate complications associated with the procedure. Gale Benoit APRN.CNP us Desiree Cruz PA-C GASTRO Final Result * US ABD LIVER VASCULAR TRANSPLANT (MC) (10/29/2024 3:39 PM EDT) Anatomical Region Laterality Modality Abdomen Ultrasound 10/29/2024 3:00 PM EDT Impressions 10/29/2024 4:13 PM EDT IMPRESSION: Patent hepatic vasculature with appropriately directed flow. Mildly increased multiloculated ascites. Telegrapher Agent: [facility]INI Transcribe Date/Time: Oct 29 2024 3:46P Dictated by : MARIO YU MD This examination was interpreted and the report reviewed and electronically signed by: AMARILIS ADAMSON MD on Oct 29 2024 4:11PM EST Narrative 10/29/2024 4:13 PM EDT * * *Final Report* * * DATE OF EXAM: Oct 29 2024 3:00PM [facility] 0685 - ABD LIVER VASCULAR TRANSPLANT / PROCEDURE REASON: [...] IVC: Patent with normal, phasic wave form. Procedure Note Provider, [facility] [place] - 10/29/2024 * * *Final Report* * * DATE OF EXAM: Oct 29 2024 3:00PM [facility] 0685 - [facility] LIVER VASCULAR TRANSPLANT / PROCEDURE REASON: Liver [...] IVC: Patent with normal, phasic wave form. IMPRESSION IMPRESSION: Patent hepatic vasculature with appropriately directed flow. Mildly increased multiloculated ascites. Telegrapher Agent: [facility] Transcribe Date/Time: Oct 29 2024 3:46P Dictated by : MARIO YU MD This examination was interpreted and the report reviewed and electronically signed by: AMARILIS ADAMSON MD on Oct 29 2024 4:11PM EST us Desiree Cruz PA-C US-PAMA Final Result * US DOPPLER COMPLETE (10/29/2024 3:39 PM EDT) Anatomical Region Laterality Modality Ultrasound 10/29/2024 3:39 PM EDT Impressions 10/29/2024 4:13 PM EDT IMPRESSION: Patent hepatic vasculature with appropriately directed flow. Mildly increased multiloculated ascites. Telegrapher Agent: [facility] Transcribe Date/Time: Oct 29 2024 3:46P Dictated by : MARIO YU MD This examination was interpreted and the report reviewed and electronically signed by: AMARILIS ADAMSON MD on Oct 29 2024 4:11PM EST Narrative 10/29/2024 4:13 PM EDT * * *Final Report* * * DATE OF EXAM: Oct 29 2024 3:39PM [facility] 1033 - US DOPPLER COMPLETE / PROCEDURE [...] IVC: Patent with normal, phasic wave form. Procedure Note Provider, [facility] [place] - 10/29/2024 * * *Final Report* * * DATE OF EXAM: Oct 29 2024 3:39PM [facility] 1033 - US DOPPLER COMPLETE / PROCEDURE [...] IVC: Patent with normal, phasic wave form. IMPRESSION IMPRESSION: Patent hepatic vasculature with appropriately directed flow. Mildly increased multiloculated ascites. [facility]legrapher [facility] Transcribe Date/Time: Oct 29 2024 3:46P Dictated by : MARIO YU MD This examination was interpreted and the report reviewed and electronically signed by: AMARILIS ADAMSON MD on Oct 29 2024 4:11PM EST Desiree Cruz PA-C -[facility] Final Result * PROTHROMBIN TIME (10/28/2024 6:21 AM EDT) Only the most recent of32 resultswithin the time period is included. PT Sec 12.4 9.7 - 13.0 sec 10/28/2024 7:08 AM EDT [facility] INR 1.2 0.9 - 1.3 10/28/2024 7:08 AM EDT [facility] Comment: Vitamin K Antagonist (VKA) Therapeutic Range: INR 2 to 3 (Target INR of 2.5) Note: For patients treated with VKA drugs, such as warfarin, the [place] [employer] 2012 Guideline recommends a therapeutic INR range of 2 to 3 (target INR of 2.5). This recommendation includes high-risk patients with antiphospholipid syndrome with previous arterial or venous thromboembolism, current-generation mechanical or bioprosthetic aortic heart valve replacement. Note: Patients with mechanical aortic valve replacement and additional risk factors for thromboembolic events (atrial fibrillation, previous thromboembolism, LV dysfunction, hypercoagulable conditions) or an older generation mechanical AVR (i.e., ball in-Cage) or any mechanical MVR should have a INR therapeutic range of 2.5 to 3.5 (target INR of 3). Brandon GH, et al. Chest 2012, 141:7S-47S Clark RA, et al. JACC 2017, 70: 252-289 Blood BLOOD SPECIMEN / Unknown Venipuncture / Unknown 10/28/2024 6:21 AM EDT 10/28/2024 6:48 AM EDT Brandi Alarcon PA-C LABORATORY Final Result [facility] [address] [address], * RBC TRANSFUSION INSTRUCTION ([place], [place]) (10/26/2024 5:23 PM EDT) Only the most recent of9 resultswithin the time period is included. us Iglesia Perez PA-C [facility] Final Result * RED BLOOD CELLS, ADULT (10/26/2024 9:15 AM EDT) Only the most recent of4 resultswithin the time period is included. Product Code C3126Z14 [facility] Product Identification Red Blood Cells [facility] Status Information Transfused [facility] Product Expiration Date 11/28/2024 23:59 [facility] Unit Number [id number] CC M AIN BLOOD BANK Unit Blood Type O Pos CC M [facility] BLOOD BANK XM RESULT Compatible [facility] Issue Date/Time 10/26/2024 14:06 [facility] Type and Screen Expiration 10/26/2024 23:59 [facility] Blood BLOOD SPECIMEN / Unknown 10/26/2024 9:15 AM EDT Iglesia Perez PA-C BLOOD PRODUCTS Final Result Performing Organization Address City/[facility]/ZIP Co de Phone Number MAIN BLOOD BANK [address] [place] [address], [place] * (ABNORMAL) PROCALCITONIN (10/25/2024 4:55 AM EDT) Procalcitonin 0.26(H) <0.09 ng/mL 10/25/2024 9:05 AM EDT [facility] Comment:For a guided interpr etation of test results, please visit the Change in Procalcitonin Calculator, [email or web address]. Blood BLOOD SPECIMEN / Unknown Venipuncture / Unknown 10/25/2024 4:55 AM EDT 10/25/2024 5:26 AM EDT Iglesia Perez PA-C LABORATORY Final Result [facility] [address] [place] [address], [place] * MRI BRAIN WO IVCON (10/24/2024 7:06 PM EDT) Anatomical Region Laterality Modality Head Magnetic Resonan ce 10/24/2024 7:06 PM EDT Impressions 10/24/2024 7:12 PM EDT IMPRESSION: No evidence of acute intracranial abnormality. Extensive patchy confluent T2 FLAIR hyperintense lesions are present throughout the bilateral supratentorial brain and alejandra compatible with sequela of chronic small vessel disease. Telegrapher Agent: [facility] Transcribe Date/Time: Oct 24 2024 7:06P Dictated by : JASON ZURITA MD This examination was interpreted and the report reviewed and electronically signed by: JASON ZURITA MD on Oct 24 2024 7:10PM EST Narrative 10/24/2024 7:12 PM EDT * * *Final Report* * [...] paranasal sinuses and mastoid air cells are clear. The orbits and extracranial soft tissues are unremarkable. Procedure Note Provider, [facility] [place] - 10/24/2024 * * *Final Report* * * [...] typical flow void, suggesting patency by spin echocriteria. Other: The visualized paranasal sinuses and mastoid air cells are clear. The orbits and extracranial soft tissues are unremarkable. IMPRESSION IMPRESSION: No evidence of acute intracranial abnormality. Extensive patchy confluent T2 FLAIR hyperintense lesions are present throughout the bilateral supratentorial brain and alejandra compatible with sequela of chronic small vessel disease. Telegrapher Agent: [facility] Transcribe Date/Time: Oct 24 2024 7:06P Dictated by : JASON ZURITA MD This examination was interpreted and the report reviewed and electronically signed by: JASON ZURITA MD on Oct 24 2024 7:10PM EST July Agnes BOOKER MRI-PAMA Final Result * CT ABD/PEL W IVCON (10/24/2024 6:28 PM EDT) Anatomical Region Laterality Modality Abdomen Computed Tomogra phy 10/24/2024 6:28 PM EDT Impressions 10/24/2024 6:53 PM EDT IMPRESSION: Further mild interval decrease in size of gallbladder fossa collection. Of note, the previously well-positioned percutaneous drain is now slightly retracted, with a few of the sideholes now within the hepatic parenchyma. Slightly increased moderate volume ascites, with new peritoneal thickening/enhancement, suggestive of peritonitis, perhaps bile peritonitis given somewhat malpositioned percutaneous drain within the known biliary leak. Telegrapher Agent: [facility]I Transcribe Date/Time: Oct 24 2024 6:39P Dictated by : MIKE OATES MD This examination was interpreted and the report reviewed and electronically signed by: MIKE OATES MD on Oct 24 2024 6:50PM EST Narrative 10/24/2024 6:53 PM EDT * * *Final Report* * * DATE OF EXAM: Oct 24 2024 6:28PM [facility] 0530 - CT ABD/PEL W IVCON / [...] Bibasilar atelectasis. Localizer images: No additional findings. Procedure Note Provider, [facility] - 10/24/2024 * * *Final Report* * * DATE OF EXAM: Oct 24 2024 6:28PM [facility] 0530 - CT ABD/PEL W IVCON / [...] Bibasilar atelectasis. Localizer images: No additional findings. IMPRESSION IMPRESSION: Further mild interval decrease in size of gallbladder fossa collection. Of note, the previously well-positioned percutaneous drain is now slightly retracted, with a few of the sideholes now within the hepatic parenchyma. Slightly increased moderate volume ascites, with new peritoneal thickening/enhancement, suggestive of peritonitis, perhaps bile peritonitis given somewhat malpositioned percutaneous drain within the known biliary leak. Telegrapher Agent: [facility] Transcribe Date/Time: Oct 24 2024 6:39P Dictated by : MIKE OATES MD This examination was interpreted and the report reviewed and electronically signed by: MIKE OATES MD on Oct 24 2024 6:50PM EST Brandi Alarcon PA-C CT-PAMA Final Result * IR VASCULAR ACCESS TEAM PICC INSERTION RADIO (10/24/2024 11:17 AM EDT) Anatomical Region Laterality Modality Other Narrative 10/24/2024 11:17 AM EDT Tara Hernandez RN 10/24/2024 11:49 AM PICC NURSE INSERTION NOTE DATE OF PROCEDURE: October 24, 2024 TIME OF PROCEDURE: 1100 ORDERING PHYSICIAN: Brandi Alarcon INFORMED CONSENT: Obtained per hospital policy. INDICATION FOR LINE PLACEMENT: COPAT CONDITION OF LINE PLACEMENT: Sterile PRIMARY PROCEDURALIST: Ceci Beauchamp RN CERTIFIED MEDICINE AIDE: Tara Hernandez RN PRE-PROCEDURE REVIEW ALLERGIES No Known [...] Procedure Surface Cleansed with Antimicrobial Wipes: Yes Barriers Used by Proceduralist and all Assisting Personnel: Yes UNIVERSAL PROTOCOL / SAFETY CHECKLIST Procedure to be Performed: peripherally inserted central catheter Sign In: A Moment of CARE was completed. Appropriate PPE (Personal Protective Equipment) worn by all [...] risk assessed and is not applicable. Implants: are not applicable. Sign Out: Specimens not collected. All instruments, equipment, possible retained foreign bodies are accounted for. Yes. The post-procedure plan of care has been communicated to the patient or surrogate and to patient's multidisciplinary team (including bedside nurse for hospitalized patients). CATHETER PLACEMENT Brand: Info Assembly Lot: [id number] Number of Lumens: 1 Type of PICC: Power Injectable PICC Lumen Size: 4 Serbian PLACEMENT TECHNIQUE Lidocaine: Yes, Lidocaine 1% Volume [...] centimeters Post Insertion Pain Level Related to Procedure: 0 Action Taken to Address Pain: None [...] Patient Education Materials: Left at bedside [facility] Central Line Insertion checklist was utilized during this procedure. QUESTIONS or PROBLEMS: Page [phone] SIGNATURE: Tara Hernandez RN PATIENT NAME: Charles Blandon DATE: October 24, 2024 TIME: 11:18 AM PAGER/CONTACT PHONE: July Agnes BOOKER INTERVENTIONAL RADIOLOGY Final Result * XR ABDOMEN 1V SUPINE (10/24/2024 5:36 AM EDT) Anatomical Region Laterality Modality Abdomen Radiographic Lisa ging 10/24/2024 5:36 AM EDT Impressions 10/24/2024 8:28 AM EDT IMPRESSION: Lines, tubes, and devices: Right upper quadrant TIPS, cholecystostomy tube, and surgical clips. Bowel: Gastric gaseous distention. Scattered gas-filled nondilated small bowel and colon. Telegrapher Agent: SRINI Transcribe Date/Time: Oct 24 2024 8:25A Dictated by : AUTUMN CORRALES MD This examination was interpreted and the report reviewed and electronically signed by: AUTUMN CORRALES MD on Oct 24 2024 8:26AM EST Narrative 10/24/2024 8:28 AM EDT * * *Final Report* * * DATE OF EXAM: Oct 24 2024 5:36AM DESIRAE 5289 - XR ABDOMEN 1V SUPINE / PROCEDURE REASON: Nausea/Vomiting * * * * Physician Interpretation * * * * ABDOMEN, 1 VIEW 10/24/2024 CLINICAL INFORMATION: Nausea/Vomiting. TECHNIQUE: Supine frontal view, 1 image(s) COMPARISON: 10/19/2024 RESULT: See impression. Procedure Note Provider, [facility] [place] - 10/24/2024 * * *Final Report* * * DATE OF EXAM: Oct 24 2024 5:36AM DESIRAE 5289 - XR ABDOMEN 1V SUPINE / PROCEDURE REASON: Nausea/Vomiting * * * * Physician Interpretation * * * * ABDOMEN, 1 VIEW 10/24/2024 CLINICAL INFORMATION: Nausea/Vomiting. TECHNIQUE: Supine frontal view, 1 image(s) COMPARISON: 10/19/2024 RESULT: See impression. IMPRESSION IMPRESSION: Lines, tubes, and devices: Right upper quadrant TIPS, cholecystostomy tube, and surgical clips. Bowel: Gastric gaseous distention. Scattered gas-filled nondilated small bowel and colon. Telegrapher [facility] Transcribe Date/Time: Oct 24 2024 8:25A Dictated by : AUTUMN CORRALES MD This examination was interpreted and the report reviewed and electronically signed by: AUTUMN CORRALES MD on Oct 24 2024 8:26AM EST us Gilbert Maldonado MD, PhD RAD-PAMA Final Result * (ABNORMAL) LIPASE (10/20/2024 5:25 PM EDT) Only the most recent of2 resultswithin the time period is included. Lipase 8(L) 16 - 61 U/L 10/20/2024 7:17 PM EDT [facility] Blood BLOOD SPECIMEN / Unknown Venipuncture / Unknown 10/20/2024 5:25 PM EDT 10/20/2024 5:35 PM EDT Desiree Ollis PA-C LABORATORY Final Result Performing Organization Address [facility] Co de Phone Number [facility] [address] [phone], [place] * (ABNORMAL) AMYLASE (10/20/2024 5:25 PM EDT) Pathologist [facility] Amylase 9(L) 30 - 104 U/L 10/20/2024 7:17 PM EDT [facility] Blood BLOOD SPECIMEN / Unknown Venipuncture / Unknown 10/20/2024 5:25 PM EDT 10/20/2024 5:35 PM EDT Desiree Ollis PA-C LABORATORY Final Result Performing Organization Address [facility] de Phone Number [facility] [address] [phone], [place] * (ABNORMAL) COMPLETE BLOOD COUNT (10/20/2024 7:41 AM EDT) Only the most recent of32 resultswithin the time period is included. WBC 8.20 3.70 - 11.00 k/uL 10/20/2024 8:04 AM EDT [facility] RBC 2.27(L) 4.20 - 6.00 m/uL 10/20/2024 8:04 AM EDT [facility] Hemoglobin 6.9(L) 13.0 - 17.0 g/dL 10/20/2024 8:04 AM EDT [facility] Hematocrit 21.3(L) 39.0 - 51.0 % 10/20/2024 8:04 AM EDT [facility] MCV 93.8 80.0 - 100.0 fL 10/20/2024 8:04 AM EDT [facility] MCH 30.4 26.0 - 34.0 pg 10/20/2024 8:04 AM EDT [facility] MCHC 32.4 30.5 - 36.0 g/dL 10/20/2024 8:04 AM EDT [facility] RDW-CV 17.9(H) 11.5 - 15.0 % 10/20/2024 8:04 AM EDT [facility] Platelet Count 453(H) 150 - 400 k/uL 10/20/2024 8:04 AM EDT [facility] MPV 9.0 9.0 - 12.7 fL 10/20/2024 8:04 AM EDT [facility] Absolute nRBC <0.01 <0.01 k/uL 10/20/2024 8:04 AM EDT [facility] Blood BLOOD SPECIMEN / Unknown Venipuncture / Unknown 10/20/2024 7:41 AM EDT 10/20/2024 7:56 AM EDT Desiree Cruz PA-C LABORATORY Final Result [facility] [address] [place] [address], [place] * US ABD LIVER VASCULAR TRANSPLANT (MC) (10/19/2024 4:12 PM EDT) Anatomical Region Laterality Modality Abdomen Ultrasound 10/19/2024 3:55 PM EDT Impressions 10/19/2024 4:31 PM EDT IMPRESSION: Patent hepatic vasculature with appropriately directed flow. 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 Small volume loculated ascites. No splenomegaly. Stable pneumobilia Telegrapher Agent: PSCB Transcribe Date/Time: Oct 19 2024 4:18P Dictated by : STEWART BROUSSARD MD This examination was interpreted and the report reviewed and electronically signed by: AKIKO PHAN MD on Oct 19 2024 4:29PM EST Narrative 10/19/2024 4:31 PM EDT * * *Final Report* * * DATE OF EXAM: Oct 19 2024 3:55PM [facility] 0685 - US ABD LIVER VASCULAR TRANSPLANT [...] loculated abdominal ascites. HEPATIC VASCULATURE: PORTAL SYSTEM: -Splenic Vein: Patent [...] IVC: Patent with normal, phasic wave form. Procedure Note Provider, [facility] [place] - 10/19/2024 * * *Final Report* * * DATE OF EXAM: Oct 19 2024 3:55PM [facility] 0685 - [facility] LIVER VASCULAR TRANSPLANT / PROCEDURE REASON: Liver [...] loculated abdominal ascites. HEPATIC VASCULATURE: PORTAL SYSTEM: -Splenic Vein: Patent [...] IVC: Patent with normal, phasic wave form. IMPRESSION IMPRESSION: Patent hepatic vasculature with appropriately directed flow. 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 Small volume loculated ascites. No splenomegaly. Stable pneumobilia Telegrapher Agent: SRINI Transcribe Date/Time: Oct 19 2024 4:18P Dictated by : STEWART BROUSSARD MD This examination was interpreted and the report reviewed and electronically signed by: AKIKO PHAN MD on Oct 19 2024 4:29PM EST us Desiree Cruz PA-C US-PAMA Final Result * US DOPPLER COMPLETE (10/19/2024 4:12 PM EDT) Anatomical Region Laterality Modality Ultrasound 10/19/2024 4:12 PM EDT Impressions 10/19/2024 4:31 PM EDT IMPRESSION: Patent hepatic vasculature with appropriately directed flow. 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 Small volume loculated ascites. No splenomegaly. Stable pneumobilia Telegrapher Agent: PSCB Transcribe Date/Time: Oct 19 2024 4:18P Dictated by : STEWART BROUSSARD MD This examination was interpreted and the report reviewed and electronically signed by: AKIKO PHAN MD on Oct 19 2024 4:29PM EST Narrative 10/19/2024 4:31 PM EDT * * *Final Report* * * DATE OF EXAM: Oct 19 2024 4:12PM [facility] 1033 - US DOPPLER COMPLETE / PROCEDURE [...] loculated abdominal ascites. HEPATIC VASCULATURE: PORTAL SYSTEM: -Splenic Vein: Patent [...] IVC: Patent with normal, phasic wave form. Procedure Note Provider, [facility] [place] - 10/19/2024 * * *Final Report* * * DATE OF EXAM: Oct 19 2024 4:12PM [facility] 1033 - US DOPPLER COMPLETE / PROCEDURE [...] loculated abdominal ascites. HEPATIC VASCULATURE: PORTAL SYSTEM: -Splenic Vein: Patent [...] IVC: Patent with normal, phasic wave form. IMPRESSION IMPRESSION: Patent hepatic vasculature with appropriately directed flow. 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 Small volume loculated ascites. No splenomegaly. Stable pneumobilia Telegrapher Agent: [facility] Transcribe Date/Time: Oct 19 2024 4:18P Dictated by : STEWART BROUSSARD MD This examination was interpreted and the report reviewed and electronically signed by: AKIKO PHAN MD on Oct 19 2024 4:29PM EST us Desiree Cruz PA-C US-PAMA Final Result * XR ABDOMEN 1V SUPINE (10/19/2024 2:22 PM EDT) Anatomical Region Laterality Modality Abdomen Radiographic Lisa ging 10/19/2024 2:22 PM EDT Impressions 10/19/2024 3:27 PM EDT IMPRESSION: Support lines and tubes: RIGHT mid abdominal catheter present. CBD stent present. Bowel gas pattern: Mildly dilated colon with the transverse colon measuring up to 6.2 cm. This is likely ileus. No significant small bowel dilatation. Calcifications: RIGHT upper quadrant surgical clips. Telegrapher Agent: [facility] Transcribe Date/Time: Oct 19 2024 3:20P Dictated by : AKIKO PHAN MD This examination was interpreted and the report reviewed and electronically signed by: AKIKO PHAN MD on Oct 19 2024 3:24PM EST Narrative 10/19/2024 3:27 PM EDT * * *Final Report* * * DATE OF EXAM: Oct 19 2024 2:22PM [facility] 5289 - XR ABDOMEN 1V SUPINE / PROCEDURE REASON: Abdominal pain * * * * Physician Interpretation * * * * EXAM: KUB ABDOMEN. CLINICAL INFORMATION: Abdominal pain TECHNIQUE: Supine abdomen, 2 image(s) COMPARISON: 10/07/2024, CT dated 10/18/2024 RESULT: See Impression. Procedure Note Provider, [facility] [place] - 10/19/2024 * * *Final Report* * * DATE OF EXAM: Oct 19 2024 2:22PM DESIRAE 5289 - XR ABDOMEN 1V SUPINE / PROCEDURE REASON: Abdominal pain * * * * Physician Interpretation * * * * EXAM: KUB ABDOMEN. CLINICAL INFORMATION: Abdominal pain TECHNIQUE: Supine abdomen, 2 image(s) COMPARISON: 10/07/2024, CT dated 10/18/2024 RESULT: See Impression. IMPRESSION IMPRESSION: Support lines and tubes: RIGHT mid abdominal catheter present. CBD stent present. Bowel gas pattern: Mildly dilated colon with the transverse colon measuring up to 6.2 cm. This is likely ileus. No significant small bowel dilatation. Calcifications: RIGHT upper quadrant surgical clips. Telegrapher Agent: [facility] Transcribe Date/Time: Oct 19 2024 3:20P Dictated by : AKIKO PHAN MD This examination was interpreted and the report reviewed and electronically signed by: AIKKO PHAN MD on Oct 19 2024 3:24PM EST us Desiree Cruz PA-C RAD-PAMA Final Result * CT ABDOMEN WO IVCON (10/18/2024 3:27 PM EDT) Anatomical Region Laterality Modality Abdomen Computed Tomogra phy 10/18/2024 3:27 PM EDT Impressions 10/18/2024 4:31 PM EDT IMPRESSION: Interval placement of a percutaneous drainage catheter with decompression of the gallbladder fossa collection. Moderate volume abdominal ascites, similar to prior study. Essentially stable RIGHT hydropneumothorax and moderate LEFT pleural effusion. Telegrapher Agent: [facility] Transcribe Date/Time: Oct 18 2024 4:19P Dictated by : AKIKO PHAN MD This examination was interpreted and the report reviewed and electronically signed by: AKIKO PHAN MD on Oct 18 2024 4:28PM EST Narrative 10/18/2024 4:31 PM EDT * * *Final Report* * * DATE OF EXAM: Oct 18 2024 3:27PM [facility] 0534 - CT ABDOMEN WO IVCON / PROCEDURE REASON: Post-operative / post-procedure assessment, symptomatic * * * * Physician Interpretation * * * * EXAMINATION: CT ABDOMEN WITHOUT IV CONTRAST CLINICAL HISTORY: Abdominal pain, post drain placement. Patient is status post liver transplant. Status post drainage of RIGHT hydrothorax on 09/09/2024 TECHNIQUE: Non-IV contrast imaging of the abdomen was performed using standard technique, scanning from just above the dome of the diaphragm to the iliac crest. Unenhanced imaging is limited for the evaluation of some intra-abdominal pathology. MQ: CTAbdWO_3 Contrast: IV: None Oral: 300 ml of Omni 240 10-25ml diluted with water CT Radiation dose: Integrated Dose-length product (DLP) for this visit = 208 mGy*cm. CT Dose Reduction Employed: Automated exposure control (AEC) COMPARISON: 10/16/2024 RESULT: Liver: Unenhanced liver allograft is unremarkable. Previously [...] Adrenals: No mass. Kidneys: Previously administered excreted contrast in both collecting systems. No hydronephrosis. GI [...] pleural effusion. Localizer images: No additional findings. Procedure Note Provider, [facility] [place] - 10/18/2024 * * *Final Report* * * DATE OF EXAM: Oct 18 2024 3:27PM [facility] 0534 - CT ABDOMEN WO IVCON / PROCEDURE REASON: Post-operative / post-procedure assessment,symptomatic * * * * Physician Interpretation * * * * EXAMINATION: CT ABDOMEN WITHOUT IV CONTRAST CLINICAL HISTORY: Abdominal pain, post drain placement. Patient is status post liver transplant. Status post drainage of RIGHT hydrothorax on 09/09/2024 TECHNIQUE: Non-IV contrast imaging of the abdomen was performed using standard technique, scanning from just above the dome of the diaphragm to the iliac crest. Unenhanced imaging is limited for the evaluation of some intra-abdominal pathology. MQ: CTAbdWO_3 Contrast: IV: None Oral: 300 ml of Omni 240 10-25ml diluted with water CT Radiation dose: Integrated Dose-length product (DLP) for this visit = 208 mGy*cm. CT Dose Reduction Employed: Automated exposure control (AEC) COMPARISON: 10/16/2024 RESULT: Liver: Unenhanced liver allograft is unremarkable. Previously [...] Adrenals: No mass. Kidneys: Previously administered excreted contrast in both collecting systems. No hydronephrosis. GI [...] pleural effusion. Localizer images: No additional findings. IMPRESSION IMPRESSION: Interval placement of a percutaneous drainage catheter with decompression of the gallbladder fossa collection. Moderate volume abdominal ascites, similar to prior study. Essentially stable RIGHT hydropneumothorax and moderate LEFT pleural effusion. [facility] Transcribe Date/Time: Oct 18 2024 4:19P Dictated by : AKIKO PHAN MD This examination was interpreted and the report reviewed and electronically signed by: AKIKO PHAN MD on Oct 18 2024 4:28PM EST us Desiree Cruz PA-C CT-PAMA Final Result * US IMAGING GUIDED DRAIN PLACEMENT PERITONEAL/RETROPERITD (10/17/2024 5:03 PM EDT) Anatomical Region Laterality Modality Ultrasound 10/17/2024 5:03 PM EDT Impressions 10/17/2024 5:26 PM EDT IMPRESSION: ULTRASOUND GUIDED TRANSHEPATIC DRAIN PLACEMENT IN GALLBLADDER FOSSA COLLECTION. Telegrapher Agent: [facility] Transcribe Date/Time: Oct 17 2024 5:16P Dictated by : AMARILIS BOSS MD This examination was interpreted and the report reviewed and electronically signed by: EVERTON JULIO MD on Oct 17 2024 5:24PM EST Narrative 10/17/2024 5:26 PM EDT * * *Final Report* * * DATE OF EXAM: Oct 17 2024 5:03PM U 1170 - US LEANNA BRADLEY PERIT/RETROP FL BI / PROCEDURE REASON: Liver transplant * * * * Physician Interpretation * * * * PROCEDURE PERFORMED: ULTRASOUND GUIDED DRAIN PLACEMENT PRE-PROCEDURE DIAGNOSIS: Abdominal fluid collection(s) POST-PROCEDURE DIAGNOSIS: Same as pre-procedure diagnosis INDICATION FOR PROCEDURE: gallbladder fossa collection RELEVANT PRIOR STUDIES: CT 10/16/2024 STAFF RADIOLOGIST: Dr. Julio CERTIFIED MEDICINE AIDE(S): Dr. Boss CONSENT: The risks, benefits, treatment options, potential complications and personnel involved were discussed with the patient. All questions [...] the tract was serially dilated to 9 Serbian. A 10 Serbian locking pigtail catheter was then inserted. Its position was confirmed and then it was locked. A sample was aspirated. The catheter was sutured to the skin with monofilament suture and attached to a J-P bulb drain. The procedure was performed by the: attending radiologist, with an wet process miller head assistant. The attending radiologist performed the following procedural activities: Supervised entire procedure ANESTHESIA/SEDATION: Conscious sedation: Versed: 1.0 mg IV Fentanyl: 50 mcg IV Local anesthesia: Lidocaine 1%: 17 cc Vital signs were monitored by the nurse. START TIME/TIMEOUT TIME: 16:35 END TIME: 17:00 INTRA-SERVICE (SEDATION) TIME: 30 minutes PATIENT MONITORING: The [...] for bilirubin and cell count. DRAIN(S): 10 Serbian pigtail drain Procedure Note Provider, [facility] [place] - 10/17/2024 * * *Final Report* * * DATE OF EXAM: Oct 17 2024 5:03PM U 1170 - US LEANNA PLACE PERIT/RETROP FL BI / PROCEDURE REASON: Liver transplant * * * * Physician Interpretation * * * * PROCEDURE PERFORMED: ULTRASOUND GUIDED DRAIN PLACEMENT PRE-PROCEDURE DIAGNOSIS: Abdominal fluid collection(s) POST-PROCEDURE DIAGNOSIS: Same as pre-procedure diagnosis INDICATION FOR PROCEDURE: gallbladder fossa collection RELEVANT PRIOR STUDIES: CT 10/16/2024 STAFF RADIOLOGIST: Dr. Julio CERTIFIED MEDICINE AIDE(S): Dr. Boss CONSENT: The risks, benefits, treatment options, potential complications and personnel involved were discussed with the patient. All questions [...] the tract was serially dilated to 9 Serbian. A 10 Serbian locking pigtail catheter was then inserted. Its position was confirmed and then it was locked. A sample was aspirated. The catheter was sutured to the skin with monofilament suture and attached to a J-P bulb drain. The procedure was performed by the: attending radiologist, with an wet process miller head assistant. The attending radiologist performed the following procedural activities: Supervised entire procedure ANESTHESIA/SEDATION: Conscious sedation: Versed: 1.0 mg IV Fentanyl: 50 mcg IV Local anesthesia: Lidocaine 1%: 17 cc Vital signs were monitored by the nurse. START TIME/TIMEOUT TIME: 16:35 END TIME: 17:00 INTRA-SERVICE (SEDATION) TIME: 30 minutes PATIENT MONITORING: The [...] for bilirubin and cell count. DRAIN(S): 10 Serbian pigtail drain IMPRESSION IMPRESSION: ULTRASOUND GUIDED TRANSHEPATIC DRAIN PLACEMENT IN GALLBLADDER FOSSA COLLECTION. Telegrapher Agent: PSCB Transcribe Date/Time: Oct 17 2024 5:16P Dictated by : AMARILIS BOSS MD This examination was interpreted and the report reviewed and electronically signed by: EVERTON JULIO MD on Oct 17 2024 5:24PM EST us Xuan Melendrez PA-C US-PAMA Final Result * (ABNORMAL) BACTERIAL CULTURE AND GRAM STAIN, ABSCESS AND WOUND (AEROBIC CULTURE) (10/17/2024 4:51 PM EDT) Only the most recent of2 resultswithin the time period is included. Culture, Wound Moderate Vancomycin resistant Enterococcus faecium(A) MINIMUM INHIBITORY CONCENTRATION (VIZION) 10:46 AM EDT [facility] Comment:Cephalosporins, clin damycin, and TMP-SMX are not effective for the treatment of enterococcal infections. Gram Stain Many Gram positive cocci(A) 10:46 AM EDT [facility] Gram Stain Rare Polymorphonuclear leukocytes(A) 10:46 AM EDT [facility] Aspirate/Fine Needle Aspirate ABDOMEN / Unknown 10/17/2024 4:51 PM EDT 10/17/2024 10:20 PM EDT Narrative [facility] - 10/20/2024 10:46 AM EDT This test was developed and its performance characteristics determined by the [facility] [place] ([facility] It has not been cleared or approved by the FDA. -[facility] is regulated under CLIA as qualified to perform high-complexity testing. This test is used for clinical purposes. It should not be regarded as investigational or for research. Organism Antibiotic Method Susceptibility Vancomycin resistant Enterococcus faecium Ampicillin MINIMUM INHIBITORY CONCENTRATION (VIZION) >8: Resistant Vancomycin resistant Enterococcus faecium Vancomycin MINIMUM INHIBITORY CONCENTRATION (VIZION) >16: Resistant Vancomycin resistant Enterococcus faecium Daptomycin MINIMUM INHIBITORY CONCENTRATION (VIZION) 4: Susceptible Comment:Enterococcus faecium susceptibility to daptomycin was determined with the understanding that the drug would be dosed at 8-12 mg/kg per 24 hours. Vancomycin resistant Enterococcus faecium Linezolid MINIMUM INHIBITORY CONCENTRATION (VIZION) 2: Susceptible us Xiomara Jarrell MD MICROBIOLOGY Final Result [facility] [address] [address], * ECHO (10/17/2024 11:11 AM EDT) 10/17/2024 11:1 1 AM EDT [facility] - 10/17/2024 2:52 PM EDT CONCLUSIONS: - Technically difficult exam due to body habitus and suboptimal positioning. - Exam indication: Shortness of Breath - The left ventricle is normal in size. Left ventricular systolic function is normal. EF = 55 5% (visual est.) - Aortic sclerosis. - Exam was compared with the prior echocardiographic exam performed on 09/21/2024. Right pleural effusion seen. * * * Final * * * [facility] - 10/17/2024 2:52 PM EDT Echocardiography Report: Transthoracic Echo Main [place] Bedside Date of service: 10/17/2024 11:11:17 AM CONSULTANT Ordering physician: BRANDI ALARCON Exam indication: Shortness of Breath Technologist: Ria Weaver Interpreting physician: Lena Whalen MD PATIENT: Name: MR. CHARLES BLANDON : 1955 Age: 69 years Gender: M History of hypertension and chronic kidney disease. Previous cardiovascular interventions: Liver transplant Primary rhythm: sinus. Height: 175.30 cm BSA: 1.82 m Weight: 67.80 kg BMI: 22.1 kg/m Heart rate 78 bpm Blood pressure 136/79 mmHg Technically difficult exam due to body habitus and suboptimal positioning. Color Doppler was utilized to interrogate the cardiac valves assessed and spectral Doppler was utilized to determine the flow velocities and pressure gradients reported in this exam. MEASUREMENTS: Value Indexed Normal LV ID (diastole) 4.8 cm (2D) 2.62 cm/m LV ID (systole) 3.1 cm (2D) 1.73 cm/m IVS, leaflet tips 1.1 cm (2D) Posterior wall thickness 1.1 cm (2D) Left ventricular mass 190 g (2D) 105 g/m Ejection Fraction 55 % (visual est.) EF [...] a right pleural effusion. There is an epicardial fat pad. Brandi Yahaira Alarcon PA-C ECHO Final Result Performing Organization Address [facility] Co de Phone Number [facility] [address] [phone] * LVEF TRANSTHORACIC ECHO (10/17/2024 11:11 AM EDT) LV Ejection Fraction 55 % [facility] Comment: (visual est.) EF > 52 An LV Ejection Fraction of > 50% is normal 10/17/2024 11:1 1 AM EDT Brandi Agnes BOOKER LVEF RESULTS Final Result Performing Organization Address [facility] de Phone Number [facility] [address] [place] [phone] * CT ABD/PEL W IVCON (10/16/2024 12:48 PM EDT) Anatomical Region Laterality Modality Abdomen Computed Tomogra phy 10/16/2024 12:4 8 PM EDT Impressions 10/16/2024 2:09 PM EDT IMPRESSION: 5.2 cm collection in the gallbladder fossa with small amount of contrast, likely contained bile leak. Stable to slightly decreased size of geographic low-attenuation in the right hepatic lobe, possibly inflammatory or evolving infarct. Moderate volume abdominopelvic ascites. Stable right hydropneumothorax and bilateral pleural effusions. Telegrapher Agent: SRINI Transcribe Date/Time: Oct 16 2024 1:06P Dictated by : JIM ANAYA MD This examination was interpreted and the report reviewed and electronically signed by: EVERTON JULIO MD on Oct 16 2024 2:07PM EST Narrative 10/16/2024 2:09 PM EDT * * *Final Report* * * DATE OF EXAM: Oct 16 2024 12:48PM [facility] 0530 - CT ABD/PEL W IVCON / [...] organized collections. No mass. Bones/Soft Tissues: Unchanged T11-12 compression fractures. No acute osseous abnormalities. Ascites within right inguinal hernia. Diffuse bilateral edema. Lower thorax: Stable bilateral pleural effusions, partially loculated on the right with hydropneumothorax. Localizer images: No additional findings. Procedure Note Provider, [facility] - 10/16/2024 * * *Final Report* * * DATE OF EXAM: Oct 16 2024 12:48PM [facility] 0530 - CT ABD/PEL W IVCON / [...] * No biliary duct dilation. Trace pneumobilia, presumablypostoperative. Spleen: No mass. No splenomegaly. Pancreas: No [...] organized collections. No mass. Bones/Soft Tissues: Unchanged T11-12 compression fractures. No acute osseous abnormalities. Ascites within right inguinal hernia. Diffuse bilateral edema. Lower thorax: Stable bilateral pleural effusions, partially loculated on the right with hydropneumothorax. Localizer images: No additional findings. IMPRESSION IMPRESSION: 5.2 cm collection in the gallbladder fossa with small amount of contrast, likely contained bile leak. Stable to slightly decreased size of geographic low-attenuation in the right hepatic lobe, possibly inflammatory or evolving infarct. Moderate volume abdominopelvic ascites. Stable right hydropneumothorax and bilateral pleural effusions. Telegrapher Agent: PSCPatricia Transcribe Date/Time: Oct 16 2024 1:06P Dictated by : JIM ANAYA MD This examination was interpreted and the report reviewed and electronically signed by: EVERTON JULIO MD on Oct 16 2024 2:07PM EST us Xuan Melendrez PA-C CT-PAMA Final Result * Airway (10/15/2024 4:07 PM EDT) Narrative Phyllis Cannon APRN.HEAD PORTER - 10/15/2024 4:07 PM EDT Phyllis Cannon APRN.HEAD PORTER 10/15/2024 4:13 PM Airway General Information Procedure Start Time/Medication Administration: 10/15/2024 4:07 PM Procedure End Time: 10/15/2024 4:07 PM Patient location during procedure: OR Timeout Performed Pre-procedure: timeout performed Consent Obtained: Yes Patient identity confirmed: arm band and patient Staffing HEAD PORTER: Phyllis Cannon APRN.HEAD PORTER Performed by: RADHA Indications and Patient Condition Indications for airway management: anesthesia Preoxygenated: yes Patient position: sniffing Method: rapid sequence Cricoid Pressure: Yes Difficult mask ventilation: not attempted. Final Airway Details Final airway type: endotracheal airway Final Endotracheal Airway: ETT Cuffed: yes Successful intubation technique: video laryngoscopy Devices used: Spann and intubating stylet Endotracheal tube insertion site: oral Blade size: #4 ETT size (mm): 7.0 Measured from: teeth Measurement (cm): 232 Placement verified by: chest auscultation and capnometry Cormack-Lehane Classification: grade I - full view of glottis Number of attempts at approach: 1 Ventilation between attempts: none Failed airway: no Unrecognized esophageal intubation: no Airway not difficult Renee Barry MD ANESTHESIA ORDERABLES Final Resu lt * ERCP (10/15/2024 3:44 PM EDT) Anatomical Region Laterality Modality Other 10/15/2024 3:44 PM EDT Narrative 10/15/2024 5:16 PM EDT Q3 Patient Name: Charles Blandon Procedure Date: 10/15/2024 3:44 PM Date of : 1955 Admit Type: Inpatient Age: 69 Gender: Male Note Status: Finalized Attending MD: Elizabeth Dixon MD, [id number] Procedure: ERCP Indications: Elevated alkaline phosphatase, Post [...] administered by the anesthesia team. Findings: A metalworking specialist film of the abdomen was obtained. Surgical clips, consistent with a previous cholecystectomy and known liver transplant, were seen in [...] with EHL. Procedure Code(s): --- Professional --- 73601, Endoscopic retrograde cholangiopancreatography (ERCP); with placement of endoscopic stent into biliary or pancreatic duct, including pre- and post-dilation and guide wire passage, when performed, including sphincterotomy, when performed, each stent 37215, Endoscopic retrograde cholangiopancreatography (ERCP); with removal of calculi/debris from biliary/pancreatic duct(s) 14305, Endoscopic catheterization of the biliary ductal system, [...] liver and biliary tract CPT copyright 2020 [employer]. All rights reserved. Attending Participation: I was present and participated during the entire procedure, including non-david portions. Scope In: 4:11:32 PM Scope Out: 4:36:21 PM MD Elizabeth Bacon MD 10/15/2024 5:13:53 PM This report has been signed electronically by MD Kathy Reynolds MD Number of Addenda: 0 Note Initiated On: 10/15/2024 3:44 PM uXan Melendrez PA-C DIGESTIVE DISEASE Final Resu lt * (ABNORMAL) GLUCOSE, BLOOD (POC) (10/15/2024 3:11 PM EDT) Only the most recent of134 resultswithin the time period is included. [facility] Glucose, Point of Care 105(A) 74 - 99 mg/dL [facility] Comment: Location:[facility], [address] [place] [address], [facility] The Accu-Chek Inform II glucose meter has not been approved for testing on patients receiving intensive medical intervention or therapy and results from this point of care glucose test should not be used for patient management decisions in these cases. Inaccurate results may also occur from other interfering factors, such as N-acetylcysteine (blood concentrations of greater than 5mg/dL), galactose, extremes of hematocrit (<10 or >65), or high doses of ascorbic acid (vitamin C) greater than 3mg/dL. Consider alternate testing mechanisms (e.g. core lab, blood gas instrument) in the above situations. 10/15/2024 3:11 PM EDT Renee Barry MD POC TESTING Final Result Performing Organization Address [facility] Co de Phone Number [facility] POINT OF CARE [address] * (ABNORMAL) HIGH SENSITIVITY TROPONIN T (10/15/2024 8:39 AM EDT) Only the most recent of3 resultswithin the time period is included. [facility] PENELOPE High Sensitivity 89(H) <12 ng/L 10/15/2024 11:00 AM EDT [facility] Blood BLOOD SPECIMEN / Unknown Venipuncture / Unknown 10/15/2024 8:39 AM EDT 10/15/2024 8:57 AM EDT Brandi Alarcon PA-C LABORATORY Final Result Performing Organization Address City/[facility]/ZIP Co de Phone Number [facility] [address] [id number], * HEPATITIS C VIRUS (HCV) RNA, QUANTITATIVE PCR, PLASMA/SERUM (10/15/2024 8:39 AM EDT) Only the most recent of2 resultswithin the time period is included. [facility] HCV RNA Not detected Not detected MIKA ANN-MARIE [address] 10/15/2024 9:46 PM EDT [facility] Blood BLOOD SPECIMEN / Unknown Venipuncture / Unknown 10/15/2024 8:39 AM EDT 10/15/2024 8:57 AM EDT [facility] - 10/15/2024 9:46 PM EDT ann-marie HCV is an in vitro nucleic acid amplification test for both the detection and quantitation of hepatitis C virus RNA, in human EDTA plasma or serum, of HCV antibody positive or HCV-infected individuals. The linear range of the assay is 15 to 100,000,000 IU/mL (1.18 - 8.00 log IU/mL). The lower limit of detection of the assay is 15 IU/mL. us Brandi Alarcon PA-C LABORATORY Final Result [facility] [address] [place] [address], * HEPATITIS B VIRUS (HBV) DNA, QUANTITATIVE PCR, PLASMA/SERUM (10/15/2024 8:39 AM EDT) Only the most recent of2 resultswithin the time period is included. [facility] HBV DNA Not detected Not detected MIKA ANN-MARIE [address] 10/16/2024 3:26 AM EDT [facility] Blood BLOOD SPECIMEN / Unknown Venipuncture / Unknown 10/15/2024 8:39 AM EDT 10/15/2024 8:57 AM EDT [facility] - 10/16/2024 3:26 AM EDT ann-marie HBV is an in vitro nucleic acid amplification test for the quantitation of hepatitis B virus DNA in human EDTA plasma or serum of HBV-infected individuals. The linear range of the assay is 10 to 1,000,000,000 IU/mL (1.00 - 9.00 log IU/mL). The lower limit of detection of the assay is 2.7 IU/mL in EDTA plasma and 2.4 IU/mL in serum. Brandi Agnes [facility]ORAT[facility] Final Result Performing Organization Address [facility]/ZIP Co de Phone Number [facility] [address] [address], [place] * HUMAN IMMUNODEFICIENCY VIRUS 1 (HIV-1) RNA, QUANTITATIVE PCR, PLASMA (10/15/2024 8:39 AM EDT) [facility] HIV-1 RNA Not detected Not detected MIKA ANN-MARIE [address] 10/16/2024 1:32 PM EDT [facility] Blood BLOOD SPECIMEN / Unknown Venipuncture / Unknown 10/15/2024 8:39 AM EDT 10/15/2024 8:57 AM EDT [facility] - 10/16/2024 1:32 PM EDT The ann-marie HIV-1 is an in vitro nucleic acid amplification test for the quantitation of human immunodeficiency virus type 1 (HIV-1) in EDTA plasma of [id number] individuals. The linear range of the assay is 20 to 10,000,000 copies/mL (1.30 - 7.00 log copies/mL). The lower limit of detection of the assay is 13.2 copies/mL. HIV Information: [place] Rev. Code 3701.243(E): This information has been disclosed to you from confidential records protected from disclosure by state law. You shall make no further disclosure of this information without the specific, written, and informed release of the individual to whom it pertains, or as otherwise permitted by state law. A general authorization for the release of medical or other information is not sufficient for the purpose of the release of HIV test results or diagnoses. July Yahaira Agnes [facility] Final Result Performing Organization Address [facility] Co de Phone Number [facility] [address] [address], [place] * XR CHEST 1V FRONTAL PORT (10/14/2024 7:18 PM EDT) Anatomical Region Laterality Modality Chest Radiographic Lisa ging 10/14/2024 7:18 PM EDT Impressions 10/15/2024 7:40 AM EDT IMPRESSION: See result. Telegrapher Agent: SRINI Transcribe Date/Time: Oct 15 2024 7:37A Dictated by : BULMARO WINN MD This examination was interpreted and the report reviewed and electronically signed by: BULMARO WINN MD on Oct 15 2024 7:38AM EST Narrative 10/15/2024 7:40 AM EDT * * *Final Report* * [...] of the descending thoracic aorta. Other: . Procedure Note Provider, [facility] [place] - 10/15/2024 * * *Final Report* * * [...] of the descending thoracic aorta. Other: . IMPRESSION IMPRESSION: See result. Telegrapher Agent: SRINI Transcribe Date/Time: Oct 15 2024 7:37A Dictated by : BULMARO WINN MD This examination was interpreted and the report reviewed and electronically signed by: BULMARO WINN MD on Oct 15 2024 7:38AM EST us Ryley Sanders MD RAD-PAMA Final Result * US CHEST (POC) H23 USE ONLY (10/14/2024 4:01 PM EDT) Anatomical Region Laterality Modality Other 10/14/2024 4:01 PM EDT us Ryley Sanders MD IMAGES Final Result * STAFF REVIEW PROREV NO CHARGE (10/14/2024 3:31 PM EDT) Only the most recent of3 resultswithin the time period is included. Reviewed md emily 10/15/2024 8:1 2 PM EDT [facility] Fluid, Thoracentesis PLEURAL FLUID / Unknown 10/14/2024 3:31 PM EDT 10/14/2024 4:15 PM EDT us Nilay Villatoro MD LABORATORY Final Result [facility] [address] [facility] [address] [place] [address], [place] * CYTOLOGY NON-CLAIMS DIRECTOR (10/14/2024 3:31 PM EDT) Only the most recent of2 resultswithin the time period is included. Case Report Medical Cytology Report Case: [id number] Authorizing Provider: Nilya Villatoro MD Collected: 10/14/2024 03:31 PM Ordering Location: [place] [address] Received: 10/14/2024 06:22 PM Pathologist: Belén Beltran MD Specimen: Pleural Cavity, Left 10/15/2024 5:15 PM EDT [facility] FINAL DIAGNOSIS A. Left Pleural Cavity Fluid: Negative for malignant cells. Acute inflammation. Reactive mesothelial cells. The following cell blocks were associated with this case: A1 Cell Block, Alcohol Fixed 10/15/2024 5:15 PM EDT [facility] at 1715 EDT Gross Description A. Pleural Cavity, Left 60 cc cloudy kaylie fluid with material. ThinPrep and Cell Block prepared. 10/15/2024 5:15 PM EDT [facility] Clinical History Pre-op diagnosis: Pleural effusion [J90] 10/15/2024 5:15 PM EDT [facility] ORDER COMMENT Pre-op diagnosis: Pleural effusion [J90] 10/15/2024 5:15 PM EDT [facility] Performing Lab Technical component, metal can inspector screening performed at: [facility], [address] [place] [address] CLIA: [id number] Diagnostic interpretation performed at: [facility], [address] [place] [address] CLIA# [id number] Breakdown Worker: Emmett New MD 10/15/2024 5:15 PM EDT [facility] Disclaimer Laboratory Developed Test (LDT) Disclaimer: Performance characteristics of immunohistochemical , immunofluorescent, and chromogenic in-situ hybridization tests have been determined by the performing laboratory within [facility]'s Phillip Mathias Pathology and Laboratory Medicine Department ([facility], [facility], [facility], [facility], [facility], Counts Include [facility], or [facility]) in a manner consistent with CLIA requirements. One or more of these tests may not have been cleared or approved by the FDA. RT-PLM is regulated under CLIA as qualified to perform high-complexity testing. These tests are used for clinical purposes. These should not be regarded as investigational or for research. Positive and negative controls stain appropriately. 10/15/2024 5:15 PM EDT [facility] Fluid, Thoracentesis PLEURAL FLUID / Unknown 10/14/2024 3:31 PM EDT 10/14/2024 6:22 PM EDT Comment:Pre-op diagnosis: Pleural effusion [J90] Nilay Villatoro MD CYTOLOGY Final Result Performing Organization Address [facility] Co de Phone Number [facility] [address] [place], [place] [id number], [place] * PH BODY FLUID (10/14/2024 3:31 PM EDT) pH, Body Fluid 7.6 10/14/2024 5:39 PM EDT [facility] Comment: No reference range has been established for this specimen type. This test was developed, and its performance characteristics determined by the [facility] Department of Pathology and Laboratory Medicine. It has not been cleared or approved by the FDA. The [facility] Department of Pathology and Laboratory Medicine is regulated under CLIA as qualified to perform high- complexity testing. This test is used for clinical purposes. It should not be regarded as investigational or for research. Body Fluid Type (pH) Pleural Cavity, Left 10/14/2024 5:39 PM EDT [facility] Fluid, Thoracentesis PLEURAL FLUID / Unknown 10/14/2024 3:31 PM EDT 10/14/2024 4:15 PM EDT Comment:Pre-op diagnosis: Pleural effusion [J90] us Nilay Villatoro MD LABORATORY Final Result Performing Organization Address [facility]/ZIP Co de Phone Number [facility] [address] [place] [id number], [place] * TRIGLYCERIDE BFL (10/14/2024 3:31 PM EDT) Triglycerides, Body Fluid 12 mg/dL 10/14/2024 7:01 PM EDT [facility] Comment: Synovial fluids: Synovial fluid triglycerides measurement may be useful in classifying various joint disorders. The reference range for adult synovial fluid triglycerides measurement is <=40% of the concurrent plasma cholesterol measurement. Serous fluids: Serous fluid triglycerides measurement may be useful in classifying the effusion as chylous or nonchylous. A serous fluid triglycerides measurement >110 mg/dL is suggestive of a chylous effusion. A serous fluid triglycerides measurement <=110 mg/dL is suggestive of a nonchylous effusion. Reference: 1. CLSI. Analysis of Body Fluids in Clinical Chemistry; Approved Guideline. CLSI document C49A. JOEL Murrell: Clinical Laboratory Standards [place]; 2007. Body Fluid Type (Triglyceride) Fluid, Thoracentes is, Pleural Cavity, Left 10/14/2024 7:01 PM EDT [facility] Fluid, Thoracentesis PLEURAL FLUID / Unknown 10/14/2024 3:31 PM EDT 10/14/2024 4:15 PM EDT Comment:Pre-op diagnosis: Pleural effusion [J90] us Nilay Villatoro MD LABORATORY Final Result [facility] [address] [id number], [place] * PROTEIN, BODY FLUID (10/14/2024 3:31 PM EDT) Protein, Body Fluid 2.7 See Comment g/dL 10/14/2024 6:41 PM EDT [facility] Comment: Serous fluids: Effusions are the accumulation of clinically detected fluid in any of the serous cavities. Effusions are further into transudates and exudates, which aid in determining the etiology of the effusion. Transudate: Body fluid total protein measurement < 3.0 g/dL. A ratio of serous fluid total protein to a concurrent serum total protein < 0.5 indicates a transudate. Exudate: Body fluid total protein measurement >= 3.0 g/dL. A ratio of serous fluid total protein to a concurrent serum total protein >= 0.5 indicates an exudate. Reference: 1. CLSI. Analysis of Body Fluids in Clinical Chemistry Approved Guideline. CLSI document C49A. JOEL Murrell: Clinical Laboratory Standards [place]: 2007. Fluid, Thoracentesis PLEURAL FLUID / Unknown 10/14/2024 3:31 PM EDT 10/14/2024 4:15 PM EDT Comment:Pre-op diagnosis: Pleural effusion [J90] us Nilay Villatoro MD LABORATORY Final Result [facility] [address] [facility] [address] [place] [address], [place] * LACTATE DEHYDROGENASE, BODY FLUID (10/14/2024 3:31 PM EDT) LD,Body Fluid 79 See Comment U/L 10/14/2024 6:41 PM EDT [facility] Comment: Pleural fluids: Pleural fluid lactate dehydrogenase (LDH) measurements may be useful for classifying pleural effusions as exudates. A ratio of pleural fluid LDH to a concurrent serum LDH > 0.6 is suggestive of exudate. Peritoneal fluids: Ascitic fluid LDH measurements may aid in characterizing secondary peritonitis and should be interpreted along with other clinical and laboratory information. Synovial fluids: Synovial fluid LDH measurements may be useful as an inflammatory marker for various arthritic conditions and should be interpreted along with other clinical and laboratory information. Reference: 1. CLSI. Analysis of Body Fluids in Clinical Chemistry Approved Guideline. CLSI document C49A. JOEL Murrell: Clinical Laboratory Standards [place]: 2007. Reference: 2. Sirisha MUNIZ, Nevin Guardado. Body fluid analysis: clinical utility and applicability of published studies to guide interpretation of today's laboratory testing in serous fluids. Crit Rev Clin Lab Sci, 2013:50(4,5):107 to 124. Reference: 3. Molly Syed, Kali Loyola DR. Lactate dehydrogenase activity and its isoenzymes in serum and synovial fluid of patients with rheumatoid arthritis and osteoarthritis. J Rheumatol. 1992:19:529 to 533. Fluid, Thoracentesis PLEURAL FLUID / Unknown 10/14/2024 3:31 PM EDT 10/14/2024 4:15 PM EDT Comment:Pre-op diagnosis: Pleural effusion [J90] Nilay Villatoro MD LABORATORY Final Result Performing Organization Address [facility] Co de Phone Number [facility] [address] [address], [place] * GLUCOSE, BODY FLUID (10/14/2024 3:31 PM EDT) Glucose, Body Fld 181 See Comment mg/dL 10/14/2024 6:41 PM EDT [facility] Comment: Synovial fluid: Synovial fluid glucose measurement may be useful in classifying various joint disorders. A concurrent plasma glucose measurement should be performed to determine the glucose plasma minus glucose synovial fluid difference, which is normally <= 10.0 mg/dL. Artificial lowering of synovial fluid glucose, due to glycolytic action of leukocytes, may result from analyses that occur more than one hour from the time of collection. Reference: 1. CLSI. Analysis of Body Fluids in Clinical Chemistry Approved Guideline. CLSI document C49A. JOEL Murrell: Clinical Laboratory Standards [place]: 2007. Fluid, Thoracentesis PLEURAL FLUID / Unknown 10/14/2024 3:31 PM EDT 10/14/2024 4:15 PM EDT Comment:Pre-op diagnosis: Pleural effusion [J90] Nilay Villatoro MD LABORATORY Final Result Performing Organization Address [facility] de Phone Number [facility] [address] [address], [place] * ALBUMIN, BODY FLUID (10/14/2024 3:31 PM EDT) Albumin, Body Fluid 1.8 See Comment g/dL 10/14/2024 7:02 PM EDT [facility] Comment: Body Fluid Albumin may be used in classifying ascitic fluid into high-gradient or low-gradient fluids as determined by the serum-ascites albumin gradient, which is calculated as (serum albumin) - (ascites albumin). The serum and fluid specimens should be drawn with a minimal intervening time interval to appropriately analyze the gradient. Gradients greater than or equal to 1.1 g/dL are considered high, which reflects a high hydrostatic pressure, commonly caused by: cirrhosis or other processes generating portal hypertension. In samples where gradients are less than 1.1 g/dL, ascites generated from conditions without portal hypertension should be considered. Reference: 1. CLSI. Analysis of Body Fluids in Clinical Chemistry Approved Guideline. CLSI document C49A. JOEL Murrell: Clinical Laboratory Standards [place]: 2007. 2. Patience URIOSTEGUI. Serum to ascites albumin gradient. UpToDate. 2015. Accessed on July 29, 2015. This test was developed, and its performance characteristics determined by the [facility] Department of Pathology and Laboratory Medicine. It has not been cleared or approved by the FDA. The [facility] Department of Pathology and Laboratory Medicine is regulated under CLIA as qualified to perform high- complexity testing. This test is used for clinical purposes. It should not be regarded as investigational or for research. Body Fluid Type (Albumin) Fluid, Thoracente sis, Pleural Cavity, Left 10/14/2024 7:02 PM EDT [facility] Fluid, Thoracentesis PLEURAL FLUID / Unknown 10/14/2024 3:31 PM EDT 10/14/2024 4:15 PM EDT Comment:Pre-op diagnosis: Pleural effusion [J90] us Nilay Villatoro MD LABORATORY Final Result [facility] [address] [facility] [place] [address], [place] * US CHEST (POC) H23 USE ONLY (10/14/2024 9:01 AM EDT) Anatomical Region Laterality Modality Other 10/14/2024 9:01 AM EDT us Ryley Sanders MD IMAGES Final Result * EXPANDED STOOL GASTROINTESTINAL PANEL BY PCR (10/12/2024 8:10 PM EDT) Campylobacter species (C. jejuni/C. coli/C. upsaliensis) DNA Not detected Not Detected 10/13/2024 9:09 AM EDT [facility] Plesiomonas shigelloides DNA Not detected Not Detected 10/13/2024 9:09 AM EDT [facility] Salmonella species DNA Not detected Not Detected 10/13/2024 9:09 AM EDT [facility] Vibrio species DNA Not detected Not Detected 10/13/2024 9:09 AM EDT [facility] Vibrio cholerae DNA Not detected Not Detected 10/13/2024 9:09 AM EDT [facility] Yersinia enterocolitica DNA Not detected Not Detected 10/13/2024 9:09 AM EDT [facility] Enteroaggregative E. coli (EAEC) DNA Not detected Not Detected 10/13/2024 9:09 AM EDT [facility] Enteropathogenic E. coli (EPEC) DNA Not detected Not detected 10/13/2024 9:09 AM EDT [facility] Enterotoxigenic E. coli (ETEC) DNA Not detected Not Detected 10/13/2024 9:09 AM EDT [facility] Shiga-like toxin producing E. coli (STEC) DNA Not detected Not Detected 10/13/2024 9:09 AM EDT [facility] E. coli O157 DNA Not applicable Not detected 10/13/2024 9:09 AM EDT [facility] Shigella/Enteroinvas lovely E. coli (EIEC) DNA Not detected Not Detected 10/13/2024 9:09 AM EDT [facility] Adenovirus F 40/41 DNA Not detected Not Detected 10/13/2024 9:09 AM EDT [facility] Astrovirus RNA Not detected Not Detected 10/13/2024 9:09 AM EDT [facility] Norovirus GI/GII RNA Not detected Not Detected 10/13/2024 9:09 AM EDT [facility] Rotavirus A RNA Not detected Not Detected 10/13/2024 9:09 AM EDT [facility] Sapovirus (Genogroups I, II, IV, V) RNA Not detected Not Detected 10/13/2024 9:09 AM EDT [facility] Cryptosporidium DNA Not detected Not Detected 10/13/2024 9:09 AM EDT [facility] Cyclospora cayetanensis DNA Not detected Not Detected 10/13/2024 9:09 AM EDT [facility] Entamoeba histolytica DNA Not detected Not Detected 10/13/2024 9:09 AM EDT [facility] Giardia lamblia DNA Not detected Not Detected 10/13/2024 9:09 AM EDT [facility] Stool STOOL SPECIMEN / Unknown Non Blood / Unknown 10/12/2024 8:10 PM EDT 10/12/2024 11:47 PM EDT July Agnes BOOKER MICROBIOLOGY Final Result Performing Organization Address City/[facility]/ZIP Co de Phone Number [facility] [address] [address], [place] * OVA + PARA MICROSCOPIC (10/12/2024 8:10 PM EDT) Ova and Parasite Exam No Parasites Seen 10/16/2024 3:03 PM EDT [facility] Stool STOOL SPECIMEN / Unknown Non Blood / Unknown 10/12/2024 8:10 PM EDT 10/12/2024 11:46 PM EDT Narrative [facility] - 10/16/2024 3:03 PM EDT This test can not identify the presence of Cryptosporidium, Cyclospora or Cystoisospora (order CRYSPO); Microsporidia (order MICSPO) or consider ordering STGIPI (molecular test to detect common infectious causes of diarrhea). A single negative test result does not rule out a parasitic infection. Due to intermittent shedding of parasites, it is recommended that three specimens collected over a 7 day period are submitted to improve detection sensitivity. July Agnes BOOKER MICROBIOLOGY Final Result Performing Organization Address [facility]/ZIP Co de Phone Number [facility] [address] [address], [place] * XR CHEST 1V FRONTAL PORT (10/11/2024 11:26 AM EDT) Anatomical Region Laterality Modality Chest Radiographic Lisa ging 10/11/2024 11:2 3 AM EDT Impressions 10/11/2024 11:44 AM EDT IMPRESSION: See result Telegrapher Agent: SRINI Transcribe Date/Time: Oct 11 2024 11:40A Dictated by : PAWAN LUNA MD This examination was interpreted and the report reviewed and electronically signed by: PAWAN LUNA MD on Oct 11 2024 11:42AM EST Narrative 10/11/2024 11:44 AM EDT * * *Final Report* * [...] Comparison: 10/06/2024 RESULT: Lines, tubes, and devices: None. Lungs and pleura: A loculated medium-sized RIGHT related to atelectasis/consolidation adjacent lung. A trace LEFT pleural effusion is present with adjacent atelectasis. No substantial pneumothorax is identified. Cardiomediastinal silhouette: The cardiomediastinal silhouette remains enlarged, unchanged. There are atherosclerotic calcifications in the thoracic aorta. Other: There are multiple remote right-sided rib fractures. Procedure Note Provider, [facility] [place] - 10/11/2024 * * *Final Report* * * [...] Comparison: 10/06/2024 RESULT: Lines, tubes, and devices: None. Lungs and pleura: A loculated medium-sized RIGHT related to atelectasis/consolidation adjacent lung. A trace LEFT pleural effusion is present with adjacent atelectasis. No substantial pneumothorax is identified. Cardiomediastinal silhouette: The cardiomediastinal silhouette remains enlarged, unchanged. There are atherosclerotic calcifications in the thoracic aorta. Other: There are multiple remote right-sided rib fractures. IMPRESSION IMPRESSION: See result Telegrapher Agent: SRINI Transcribe Date/Time: Oct 11 2024 11:40A Dictated by : PAWAN LUNA MD This examination was interpreted and the report reviewed and electronically signed by: PAWAN LUNA MD on Oct 11 2024 11:42AM EST us Ryley Sanders MD RAD-PAMA Final Result * US CHEST (POC) H23 USE ONLY (10/10/2024 8:48 AM EDT) Anatomical Region Laterality Modality Other 10/10/2024 8:48 AM EDT us Ryley Sanders MD IMAGES Final Result * (ABNORMAL) EXPANDED RESPIRATORY PATHOGEN PANEL BY PCR, EXPEDITED (10/08/2024 11:54 PM EDT) SARS-CoV-2 (Agent of COVID-19) RNA Not detected See comment 10/09/2024 1:41 AM EDT [facility] Influenza A RNA Not detected Not detected 10/09/2024 1:41 AM EDT [facility] Influenza B RNA Not detected Not detected 10/09/2024 1:41 AM EDT [facility] Respiratory syncytial virus (RSV) RNA Not detected Not detected 10/09/2024 1:41 AM EDT [facility] Human metapneumovirus (hMPV) RNA Not detected Not detected 10/09/2024 1:41 AM EDT [facility] Human rhinovirus/enterov irus RNA Not detected Not detected 10/09/2024 1:41 AM EDT [facility] Adenovirus DNA Not detected Not detected 10/09/2024 1:41 AM EDT [facility] Parainfluenza 1 RNA Not detected Not detected 10/09/2024 1:41 AM EDT [facility] Parainfluenza 2 RNA Not detected Not detected 10/09/2024 1:41 AM EDT [facility] Parainfluenza 3 RNA Detected(A) Not detected 10/09/2024 1:41 AM EDT [facility] Parainfluenza 4 RNA Not detected Not detected 10/09/2024 1:41 AM EDT [facility] Coronavirus 229E RNA Not detected Not detected 10/09/2024 1:41 AM EDT [facility] Coronavirus OC43 RNA Not detected Not detected 10/09/2024 1:41 AM EDT [facility] Coronavirus NL63 RNA Not detected Not detected 10/09/2024 1:41 AM EDT [facility] Coronavirus HKU1 RNA Not detected Not detected 10/09/2024 1:41 AM EDT [facility] Chlamydia pneumoniae DNA Not detected Not detected 10/09/2024 1:41 AM EDT [facility] Mycoplasma pneumoniae DNA Not detected Not detected 10/09/2024 1:41 AM EDT [facility] Bordetella pertussis DNA Not detected Not detected 10/09/2024 1:41 AM EDT [facility] Bordetella parapertussis DNA Not detected Not detected 10/09/2024 1:41 AM EDT [facility] Swab NASOPHARYNGEAL SWAB / Unknown Non Blood / Unknown 10/08/2024 11:54 PM EDT 10/09/2024 12:50 AM EDT Narrative [facility] - 10/09/2024 1:41 AM EDT Reference Range (the expected result in uninfected individuals): Not detected July Agnes BOOKER MICROBIOLOGY Final Result [facility] [address] [address], [place] * CT CHEST WO IVCON (10/08/2024 1:05 PM EDT) Anatomical Region Laterality Modality Chest Computed Tomogra phy 10/08/2024 1:05 PM EDT Impressions 10/08/2024 1:55 PM EDT IMPRESSION: Moderate-sized loculated right hydropneumothorax; the pneumothorax [...] in the posterior right base and probable rounded atelectasis in the subpleural right middle lobe. Worsening [...] well as multiple sequential bilateral rib fractures. Telegrapher Agent: SRINI Transcribe Date/Time: Oct 08 2024 1:26P Dictated by : RUPA COVINGTON MD This examination was interpreted and the report reviewed and electronically signed by: RUPA COVINGTON MD on Oct 08 2024 1:53PM EST Narrative 10/08/2024 1:55 PM EDT * * *Final Report* * * DATE OF EXAM: Oct 08 2024 1:05PM [facility] [place] [facility] 0541 - CT CHEST WO IVCON / [...] fluid drainage procedures). Increase in volume of low-attenuation, medium-sized left pleural effusion without any left [...] 4-5 mm in short axis now measures 9-10 mm in short axis (image 41, Agfa [...] are normal in caliber with mild atherosclerotic calcifications. The main and central pulmonary arteries are [...] for details. Localizer images: No additional findings. Procedure Note Provider, [facility] [place] - 10/08/2024 * * *Final Report* * * DATE OF EXAM: Oct 08 2024 1:05PM [facility] [place] 0541 - CT CHEST WO IVCON / [...] fluid drainage procedures). Increase in volume of low-attenuation, medium-sized left pleural effusion without any left [...] 4-5 mm in short axis now measures 9-10 mm in short axis (image 41, Agfa [...] are normal in caliber with mild atherosclerotic calcifications. The main and central pulmonary arteries are [...] for details. Localizer images: No additional findings. IMPRESSION IMPRESSION: Moderate-sized loculated right hydropneumothorax; the pneumothorax [...] in the posterior right base and probable rounded atelectasis in the subpleural right middle lobe. Worsening [...] well as multiple sequential bilateral rib fractures. Telegrapher Agent: SRINI Transcribe Date/Time: Oct 08 2024 1:26P Dictated by : RUPA COVINGTON MD This examination was interpreted and the report reviewed and electronically signed by: RUPA COVINGTON MD on Oct 08 2024 1:53PM EST us Mateo Tiwari MD CT-[facility] Final Result * (ABNORMAL) US DOPPLER COMPLETE (10/08/2024 7:45 AM EDT) Radiology Result ACTIONABLE (Actionabl e) DIVISION OF RADIOLOGY Comment: This report contains an incidental or actionable finding. This finding may be a new finding separate from the reason your provider ordered the imaging test or it may be an already known finding that needs additional or continued follow-up. Because of this incidental or actionable finding, you may need another test (imaging or a different type of test). Please contact your provider for the next steps. Anatomical Region Laterality Modality Ultrasound 10/08/2024 7:45 AM EDT Impressions 10/08/2024 9:40 AM EDT IMPRESSION: Patent hepatic vasculature with appropriately directed [...] be communicated with the ordering provider via [employer] staff message or phone message by [facility] within 2 business days of report finalization. --END OF FINDING-- Telegrapher Agent: SRINI Transcribe Date/Time: Oct 08 2024 8:41A Dictated by : RAQUEL WILKES MD This examination was interpreted and the report reviewed and electronically signed by: RAQUEL WILKES MD on Oct 08 2024 9:38AM EST Narrative 10/08/2024 9:40 AM EDT * * *Final Report* * * DATE OF EXAM: Oct 08 2024 7:45AM [facility] 1033 - US DOPPLER COMPLETE / PROCEDURE [...] IVC: Patent with normal, phasic wave form. Procedure Note Provider, [facility] - 10/08/2024 * * *Final Report* * * DATE OF EXAM: Oct 08 2024 7:45AM [facility] 1033 - US DOPPLER COMPLETE / PROCEDURE [...] length 11 cm, normal. There are no spleniclesions. Other: Moderate volume ascites. With the patient [...] IVC: Patent with normal, phasic wave form. IMPRESSION IMPRESSION: Patent hepatic vasculature with appropriately directed [...] be communicated with the ordering provider via [employer] staff message or phone message by [facility] within 2 business days of report finalization. --END OF FINDING-- Telegrapher Agent: SRINI Transcribe Date/Time: Oct 08 2024 8:41A Dictated by : RAQUEL WILKES MD This examination was interpreted and the report reviewed and electronically signed by: RAQUEL WILKES MD on Oct 08 2024 9:38AM EST us Mateo Tiwari MD US-[facility]AMA Final Result * (ABNORMAL) US ABD LIVER VASCULAR (10/08/2024 7:44 AM EDT) Radiology Result ACTIONABLE (Actionabl e) DIVISION OF RADIOLOGY Comment: This report contains an incidental or actionable finding. This finding may be a new finding separate from the reason your provider ordered the imaging test or it may be an already known finding that needs additional or continued follow-up. Because of this incidental or actionable finding, you may need another test (imaging or a different type of test). Please contact your provider for the next steps. Anatomical Region Laterality Modality Abdomen Ultrasound 10/08/2024 7:30 AM EDT Impressions 10/08/2024 9:40 AM EDT IMPRESSION: Patent hepatic vasculature with appropriately directed [...] be communicated with the ordering provider via [employer] staff message or phone message by [facility] within 2 business days of report finalization. --END OF FINDING-- Telegrapher Agent: SRINI Transcribe Date/Time: Oct 08 2024 8:41A Dictated by : RAQUEL WILKES MD This examination was interpreted and the report reviewed and electronically signed by: RAQUEL WILKES MD on Oct 08 2024 9:38AM EST Narrative 10/08/2024 9:40 AM EDT * * *Final Report* * * DATE OF EXAM: Oct 08 2024 7:30AM [facility] 1233 - US ABD LIVER VASCULAR / PROCEDURE REASON: Liver transplant * * * * Physician Interpretation * * * * EXAMINATION: LIVER VASCULAR ULTRASOUND WITH DOPPLER IMAGING CLINICAL HISTORY: Old T5 2624 with concern for portal vein thrombosis on [...] IVC: Patent with normal, phasic wave form. Procedure Note Provider, [facility] - 10/08/2024 * * *Final Report* * * [...] length 11 cm, normal. There are no spleniclesions. Other: Moderate volume ascites. With the patient [...] IVC: Patent with normal, phasic wave form. IMPRESSION IMPRESSION: Patent hepatic vasculature with appropriately directed [...] be communicated with the ordering provider via [employer] staff message or phone message by [facility] within 2 business days of report finalization. --END OF FINDING-- Telegrapher Agent: SRINI Transcribe Date/Time: Oct 08 2024 8:41A Dictated by : RAQUEL WILKES MD This examination was interpreted and the report reviewed and electronically signed by: RAQUEL WILKES MD on Oct 08 2024 9:38AM EST Mateo Tiwari MD [facility] Final Result * (ABNORMAL) AMMONIA (10/08/2024 4:43 AM EDT) Only the most recent of3 resultswithin the time period is included. Ammonia 14(L) 16 - 60 umol/L 10/08/2024 5:17 AM EDT [facility] Blood BLOOD SPECIMEN / Unknown Venipuncture / Unknown 10/08/2024 4:43 AM EDT 10/08/2024 4:56 AM EDT us Mateo Tiwari MD LABORATORY Final Result [facility] [address] [facility] [address] [place] [address], [place] * CT ABD/PEL WO IVCON (10/07/2024 3:00 PM EDT) Anatomical Region Laterality Modality Abdomen Computed Tomogra phy 10/07/2024 3:00 PM EDT Impressions 10/07/2024 4:03 PM EDT IMPRESSION: 1. Appearances concerning for acute portal [...] on 10/07/2024 3:54 PM via verbal communication. Telegrapher Agent: SRINI Transcribe Date/Time: Oct 07 2024 3:17P Dictated by : JOSE GUADALUPE MURPHY MD This examination was interpreted and the report reviewed and electronically signed by: JOSE GUADALUPE MURPHY MD on Oct 07 2024 4:01PM EST Narrative 10/07/2024 4:03 PM EDT * * *Final Report* * * DATE OF EXAM: Oct 07 2024 3:00PM [facility] 0531 - CT ABD/PEL WO IVCON / [...] pericardial fluid. Localizer images: No additional findings. Procedure Note Provider, [facility] [place] - 10/07/2024 * * *Final Report* * * DATE OF EXAM: Oct 07 2024 3:00PM [facility] 0531 - CT ABD/PEL WO IVCON / [...] pericardial fluid. Localizer images: No additional findings. IMPRESSION IMPRESSION: 1. Appearances concerning for acute portal [...] on 10/07/2024 3:54 PM via verbal communication. Telegrapher Agent: SRINI Transcribe Date/Time: Oct 07 2024 3:17P Dictated by : JOSE GUADALUPE MURPHY MD This examination was interpreted and the report reviewed and electronically signed by: JOSE GUADALUPE MURPHY MD on Oct 07 2024 4:01PM EST us David Cruz DO CT-PAMA Final Result * CT BRAIN WO IVCON (10/07/2024 3:00 PM EDT) Anatomical Region Laterality Modality Head Computed Tomogra phy 10/07/2024 3:00 PM EDT Impressions 10/07/2024 3:24 PM EDT IMPRESSION: NO CT EVIDENCE OF ACUTE INTRACRANIAL PROCESS. NO SIGNIFICANT INTERVAL CHANGE SINCE 08/27/2024. Telegrapher Agent: PSCPatricia Transcribe Date/Time: Oct 07 2024 3:20P Dictated by : ROSAURA CERVANTES MD This examination was interpreted and the report reviewed and electronically signed by: ROSAURA CERVANTES MD on Oct 07 2024 3:22PM EST Narrative 10/07/2024 3:24 PM EDT * * *Final Report* * * DATE OF EXAM: Oct 07 2024 3:00PM [facility] 0504 - CT BRAIN WO IVCON / PROCEDURE REASON: slurred speech * * * * Physician Interpretation * * * * EXAMINATION: CT BRAIN WO IVCON CLINICAL HISTORY: Slurred speech TECHNIQUE: Serial axial images without IV contrast were obtained from the vertex to the foramen magnum. MQ: CTBWO_3 CT Radiation dose: Integrated Dose-Length Product (DLP) for this visit = 820 [...] evidence of an intracranial mass or extraaxial fluid collection. No significant mass effect. Chronic change: Scattered patchy foci of low attenuation are present within the supratentorial white matter, a nonspecific finding that most commonly represents mild small vessel disease. Parenchyma: There is moderate generalized volume loss. Ventricles: Ventricular enlargement concordant with the degree of parenchymal volume loss. Paranasal sinuses and skull base: The visualized paranasal sinuses are grossly clear. The skull base and imaged soft tissues are unremarkable. Localizer images: No additional findings. Procedure Note Provider, [facility] [place] - 10/07/2024 * * *Final Report* * * DATE OF EXAM: Oct 07 2024 3:00PM [facility] 0504 - CT BRAIN WO IVCON / PROCEDURE REASON: slurred speech * * * * Physician Interpretation * * * * EXAMINATION: CT BRAIN WO IVCON CLINICAL HISTORY: Slurred speech TECHNIQUE: Serial axial images without IV contrast were obtained from the vertex to the foramen magnum. MQ: CTBWO_3 CT Radiation dose: Integrated Dose-Length Product (DLP) for this visit = 820 [...] evidence of an intracranial mass or extraaxial fluid collection. No significant mass effect. Chronic change: Scattered patchy foci of low attenuation are present within the supratentorial white matter, a nonspecific finding that most commonly represents mild small vessel disease. Parenchyma: There is moderate generalized volume loss. Ventricles: Ventricular enlargement concordant with the degree of parenchymal volume loss. Paranasal sinuses and skull base: The visualized paranasal sinuses are grossly clear. The skull base and imaged soft tissues are unremarkable. Localizer images: No additional findings. IMPRESSION IMPRESSION: NO CT EVIDENCE OF ACUTE INTRACRANIAL PROCESS. NO SIGNIFICANT INTERVAL CHANGE SINCE 08/27/2024. Telegrapher Agent: [facility] Transcribe Date/Time: Oct 07 2024 3:20P Dictated by : ROSAURA CERVANTES MD This examination was interpreted and the report reviewed and electronically signed by: ROSAURA CERVANTES MD on Oct 07 2024 3:22PM EST David Cruz DO CT-PAMA Final Result * XR ABDOMEN 1V SUPINE (10/07/2024 10:49 AM EDT) Anatomical Region Laterality Modality Abdomen Radiographic Lisa ging 10/07/2024 10:4 9 AM EDT Impressions 10/08/2024 1:10 PM EDT IMPRESSION: Stable to mildly improved gaseous distention of small bowel loops may indicate improving ileus or improving low grade/partial obstruction. Telegrapher Agent: [facility] Transcribe Date/Time: Oct 08 2024 1:06P Dictated by : AMARILIS MACK MD This examination was interpreted and the report reviewed and electronically signed by: AMARILIS MACK MD on Oct 08 2024 1:08PM EST Narrative 10/08/2024 1:10 PM EDT * * *Final Report* * [...] calcifications. No acute bony abnormalities are seen. Procedure Note Provider, [facility] [place] - 10/08/2024 * * *Final Report* * * [...] of small bowel loops appears stable to mildlyimproved. No abnormal abdominal masses are identified. No pathologic calcifications. No acute bony abnormalities are seen. IMPRESSION IMPRESSION: Stable to mildly improved gaseous distention of small bowel loops may indicate improving ileus or improving low grade/partial obstruction. Telegrapher Agent: PSCB Transcribe Date/Time: Oct 08 2024 1:06P Dictated by : AMARILIS MACK MD This examination was interpreted and the report reviewed and electronically signed by: AMARILIS MACK MD on Oct 08 2024 1:08PM EST [facility] Provider RAD-PAMA Final Result * US ABDOMEN LTD (10/07/2024 10:35 AM EDT) Anatomical Region Laterality Modality Abdomen Ultrasound 10/07/2024 10:3 5 AM EDT Narrative 10/07/2024 10:53 AM EDT * * *Final Report* * * DATE OF EXAM: Oct 07 2024 10:35AM [facility] 1064 - US ABDOMEN LTD / PROCEDURE REASON: asictes * * * * Physician Interpretation * * * * Clinical information: Ascites Ascites survey was performed. Images were obtained and stored in a permanent archive. Ascites present within all four quadrants, with moderate fluid volume within the right lower quadrant. Smaller volume ascites within the right upper quadrant, left upper quadrant, and left lower quadrant. Impression: Ascites, largest volume within the right lower quadrant Telegrapher Agent: [facility] Transcribe Date/Time: Oct 07 2024 10:50A Dictated by : AMARILIS MACK MD This examination was interpreted and the report reviewed and electronically signed by: AMARILIS MACK MD on Oct 07 2024 10:51AM EST Procedure Note Provider, [facility] [place] - 10/07/2024 * * *Final Report* * * DATE OF EXAM: Oct 07 2024 10:35AM [facility] 1064 - US ABDOMEN LTD / PROCEDURE REASON: asictes * * * * Physician Interpretation * * * * Clinical information: Ascites Ascites survey was performed. Images were obtained and stored in a permanent archive. Ascites present within all four quadrants, with moderate fluid volume within the right lower quadrant. Smaller volume ascites within the right upper quadrant, left upper quadrant, and left lower quadrant. Impression: Ascites, largest volume within the right lower quadrant Telegrapher Agent: [facility] Transcribe Date/Time: Oct 07 2024 10:50A Dictated by : AMARILIS MACK MD This examination was interpreted and the report reviewed and electronically signed by: AMARILIS MACK MD on Oct 07 2024 10:51AM EST us [facility] Provider [facility] Final Result * XR ABDOMEN 1V SUPINE (10/06/2024 2:59 PM EDT) Anatomical Region Laterality Modality Abdomen Radiographic Lisa ging 10/06/2024 2:59 PM EDT Impressions 10/06/2024 4:25 PM EDT IMPRESSION: 1. Bilateral pleural effusions, right greater than left and right lower lobe consolidation versus atelectasis. 2. Nonspecific dilation of loops of small bowel up to 4.7 cm. This could represent ileus or obstruction. Telegrapher Agent: [facility] Transcribe Date/Time: Oct 06 2024 4:21P Dictated by : THERESA ORANTES MD This examination was interpreted and the report reviewed and electronically signed by: THERESA ORANTES MD on Oct 06 2024 4:23PM EST Narrative 10/06/2024 4:25 PM EDT * * *Final Report* * [...] clips right upper quadrant of the abdomen. Procedure Note Provider, [facility] - 10/06/2024 * * *Final Report* * * [...] clips right upper quadrant of the abdomen. IMPRESSION IMPRESSION: 1. Bilateral pleural effusions, right greater than left and right lower lobe consolidation versus atelectasis. 2. Nonspecific dilation of loops of small bowel up to 4.7 cm. This could represent ileus or obstruction. Telegrapher Agent: SRINI Transcribe Date/Time: Oct 06 2024 4:21P Dictated by : THERESA ORANTES MD This examination was interpreted and the report reviewed and electronically signed by: THERESA ORANTES MD on Oct 06 2024 4:23PM EST [facility] Provider RAD-PAMA Final Result * XR CHEST 1V FRONTAL (10/06/2024 2:59 PM EDT) Anatomical Region Laterality Modality Chest Radiographic Lisa ging 10/06/2024 2:59 PM EDT Impressions 10/06/2024 4:25 PM EDT IMPRESSION: 1. Bilateral pleural effusions, right greater than left and right lower lobe consolidation versus atelectasis. 2. Nonspecific dilation of loops of small bowel up to 4.7 cm. This could represent ileus or obstruction. Telegrapher Agent: PSCB Transcribe Date/Time: Oct 06 2024 4:21P Dictated by : THERESA ORANTES MD This examination was interpreted and the report reviewed and electronically signed by: THERESA ORANTES MD on Oct 06 2024 4:23PM EST Narrative 10/06/2024 4:25 PM EDT * * *Final Report* * [...] clips right upper quadrant of the abdomen. Procedure Note Provider, [facility] [place] - 10/06/2024 * * *Final Report* * * [...] clips right upper quadrant of the abdomen. IMPRESSION IMPRESSION: 1. Bilateral pleural effusions, right greater than left and right lower lobe consolidation versus atelectasis. 2. Nonspecific dilation of loops of small bowel up to 4.7 cm. This could represent ileus or obstruction. Telegrapher Agent: [facility] Transcribe Date/Time: Oct 06 2024 4:21P Dictated by : THERESA ORANTES MD This examination was interpreted and the report reviewed and electronically signed by: THERESA ORANTES MD on Oct 06 2024 4:23PM EST [facility] Provider RAD-PAMA Final Result * US ABDOMEN LTD (10/06/2024 12:59 PM EDT) Anatomical Region Laterality Modality Abdomen Ultrasound 10/06/2024 12:5 9 PM EDT Impressions 10/06/2024 2:05 PM EDT IMPRESSION: Small volume of intraperitoneal ascites. Telegrapher Agent: [facility] Transcribe Date/Time: Oct 06 2024 2:02P Dictated by : DANIEL LACY MD This examination was interpreted and the report reviewed and electronically signed by: DANIEL LACY MD on Oct 06 2024 2:03PM EST Narrative 10/06/2024 2:05 PM EDT * * *Final Report* * * DATE OF EXAM: Oct 06 2024 12:59PM [id number] - US ABDOMEN LTD / PROCEDURE REASON: distended abdomen/ascities survey * * * * Physician Interpretation * * * * ASCITES SURVEY INDICATION: Ascites COMPARISON: 09/20/2024 US liver vascular TECHNIQUE: Real-time grayscale ultrasound imaging of the 4 quadrants was performed. Images were obtained and stored in a permanent archive. RESULT: See impression. Procedure Note Provider, [facility] [place] - 10/06/2024 * * *Final Report* * * DATE OF EXAM: Oct 06 2024 12:59PM [id number] - US ABDOMEN LTD / PROCEDURE REASON: distended abdomen/ascities survey * * * * Physician Interpretation * * * * ASCITES SURVEY INDICATION: Ascites COMPARISON: 09/20/2024 US liver vascular TECHNIQUE: Real-time grayscale ultrasound imaging of the 4 quadrants was performed. Images were obtained and stored in a permanent archive. RESULT: See impression. IMPRESSION IMPRESSION: Small volume of intraperitoneal ascites. [facility] Transcribe Date/Time: Oct 06 2024 2:02P Dictated by : DANIEL LACY MD This examination was interpreted and the report reviewed and electronically signed by: DANIEL LACY MD on Oct 06 2024 2:03PM EST us [facility]cf Provider US-PAMA Final Result * URIC ACID (10/06/2024 6:00 AM EDT) Uric Acid 6.0 4.0 - 8.1 mg/dL 10/06/2024 12:59 PM EDT [facility] Blood BLOOD SPECIMEN / Unknown 10/06/2024 6:00 AM EDT 10/06/2024 11:58 AM EDT Luís Bobby MD LABORATORY Final Result [facility] [address] [id number], [place] * XR FOOT GENERAL 3V AP/LAT/OBL RIGHT (10/05/2024 2:07 PM EDT) Anatomical Region Laterality Modality Foot Radiographic Lisa ging 10/05/2024 2:07 PM EDT Impressions 10/05/2024 3:20 PM EDT IMPRESSION: No acute osseous abnormality. Soft tissue edema. Telegrapher Agent: [employer] Transcribe Date/Time: Oct 05 2024 3:09P Dictated by : CARINA BENAVIDES DO This examination was interpreted and the report reviewed and electronically signed by: WARREN EASLEY MD on Oct 05 2024 3:17PM EST Narrative 10/05/2024 3:20 PM EDT * * *Final Report* * [...] No acute fracture or dislocation. Mild first MTP and scattered interphalangeal joint space narrowing. The joint space are otherwise maintained. Small plantar spur. Vascular calcifications. Diffuse soft tissue edema. Procedure Note Provider, [facility] [place] - 10/05/2024 * * *Final Report* * * [...] No acute fracture or dislocation. Mild first MTP and scattered interphalangeal joint space narrowing. The joint space are otherwise maintained. Small plantar spur. Vascular calcifications. Diffuse soft tissue edema. IMPRESSION IMPRESSION: No acute osseous abnormality. Soft tissue edema. Telegrapher Agent: [facility] Transcribe Date/Time: Oct 05 2024 3:09P Dictated by : CARINA BENAVIDES, DO This examination was interpreted and the report reviewed and electronically signed by: WARREN EASLEY MD on Oct 05 2024 3:17PM EST [facility] Provider RAD-PAMA Final Result * (ABNORMAL) LACTATE/LACTIC ACID (10/04/2024 6:32 AM EDT) Lactate 0.4(L) 0.5 - 2.2 mmol/L 10/04/2024 2:51 PM EDT [facility] Blood BLOOD SPECIMEN / Unknown Venipuncture / Unknown 10/04/2024 6:32 AM EDT 10/04/2024 7:38 AM EDT Camila Meyers [employer] POINTER[employer] REPA[employer]ER LABORATORY Final Re sult Performing Organization Address City/[facility]/ZIP Co de Phone Number [facility] [address] [address], * B-HYDROXYBUTYRATE (10/04/2024 6:32 AM EDT) B-Hydroxybutyr ate 0.20 <0.28 mmol/L 10/04/2024 8:49 AM EDT [facility] Blood BLOOD SPECIMEN / Unknown Venipuncture / Unknown 10/04/2024 6:32 AM EDT 10/04/2024 7:38 AM EDT Camila Meyers [employer]LLAR POINTER.[employer] EQUIPMENT REPAIRER LABORATORY Final Re sult Performing Organization Address [facility] Co de Phone Number [facility] [address] [place] [address], * ECG COMPLETE (09/29/2024 5:07 PM EDT) Ventricular Rate 71 BPM [facility] Atrial Rate 71 BPM [facility] P-R Interval 128 ms [facility] QRS Duration 76 ms [facility] QT Interval 396 ms [facility] QTC Calculation (Bazett) 430 ms [facility] Calculated P [place] 6 degrees [facility] Calculated R [place] 19 degrees [facility] Calculated T [place] 23 degrees [facility] 09/29/2024 5:07 PM EDT Impressions [facility] - 09/30/2024 9:47 PM EDT NORMAL SINUS RHYTHM LOW VOLTAGE QRS, CONSIDER PULMONARY DISEASE, PERICARDIAL EFFUSION, OR NORMAL VARIANT BORDERLINE ECG Confirmed by NEGRO SLATER MD ([id number]) on 09/30/2024 9:47:02 PM Narrative [facility] - 09/30/2024 9:47 PM EDT NAME : CHARLES BLADNON PID : [id number] : 1955 Gender : Male Race : ORD : Procedure Date : Sep 29 2024 17:07:42 Edit Date : Sep 30 2024 21:47:07 Diagnosis: NORMAL SINUS RHYTHM LOW VOLTAGE QRS, CONSIDER PULMONARY DISEASE, PERICARDIAL EFFUSION, OR NORMAL VARIANT BORDERLINE ECG Confirmed by NEGRO SLATER MD ([id number]) on 09/30/2024 9:47:02 PM Test Reason : Location : 519 : [facility] Overread By : NEGRO SLATER MD Edited By : NEGRO SLATER MD Referred By : , Acquired by : ALAN ISRAEL RN, us [facility] Provider EKG Final Result [facility] [address] [place] [address] * ECG COMPLETE (09/29/2024 5:07 PM EDT) Pathologist [facility] Ventricular Rate 68 BPM [facility] Atrial Rate 68 BPM [facility] P-R Interval 118 ms [facility] QRS Duration 80 ms [facility] QT Interval 392 ms [facility] QTC Calculation (Bazett) 416 ms [facility] Calculated P [place] 15 degrees [facility] Calculated R [place] 16 degrees [facility] Calculated T [place] 17 degrees [facility] 09/29/2024 5:07 PM EDT Impressions [facility] - 09/30/2024 9:46 PM EDT NORMAL SINUS RHYTHM WITH SINUS ARRHYTHMIA Confirmed by NEGRO SLATER MD ([id number]) on 09/30/2024 9:46:56 PM Narrative [facility] - 09/30/2024 9:46 PM EDT NAME : CHARLES BLANDON PID : [id number] : 1955 Gender : Male Race : ORD : [id number] Procedure Date : Sep 29 2024 17:07:01 Edit Date : Sep 30 2024 21:46:57 Diagnosis: NORMAL SINUS RHYTHM WITH SINUS ARRHYTHMIA Confirmed by NEGRO SLATER MD ([id number]) on 09/30/2024 9:46:56 PM Test Reason : Left chest pain - feels more like muscular pain, no radiation, started 3 days a Location : 519 : [facility] Overread By : NEGRO SLATER MD Edited By : NEGRO SLATER MD Referred By : , Acquired by : ALAN ISRAEL RN, David Anthony DO EKG Final Result [facility] [address] [id number] * XR ABDOMEN 1V SUPINE (09/23/2024 2:14 PM EDT) Anatomical Region Laterality Modality Abdomen Radiographic Lisa ging 09/23/2024 2:14 PM EDT Impressions 09/23/2024 4:42 PM EDT IMPRESSION: Lines, tubes, and devices: Right upper quadrant surgical clips and ana rosa. Surgical drain overlies the lower abdomen and pelvis.. Bowel: No dilated bowel. Other: Degenerative changes of the spine. Telegrapher Agent: [facility] Transcribe Date/Time: Sep 23 2024 2:37P Dictated by : RAVI KERNS MD This examination was interpreted and the report reviewed and electronically signed by: AUTUMN CORRALES MD on Sep 23 2024 4:40PM EST Narrative 09/23/2024 4:42 PM EDT * * *Final Report* * * DATE OF EXAM: Sep 23 2024 2:14PM DESIRAE 5289 - XR ABDOMEN 1V SUPINE / PROCEDURE REASON: Abdominal distension * * * * Physician Interpretation * * * * ABDOMINAL X-RAY, 1 VIEW. CLINICAL INFORMATION: Abdominal distention. CURRENT STUDY: 09/23/2024 2:14 PM COMPARISON: Abdominal radiograph 09/22/2024 TECHNIQUE: Supine abdomen, 1 image(s). RESULT: See impression. Procedure Note Provider, [facility] [place] - 09/23/2024 * * *Final Report* * * DATE OF EXAM: Sep 23 2024 2:14PM DESIRAE 5289 - XR ABDOMEN 1V SUPINE / PROCEDURE REASON: Abdominal distension * * * * Physician Interpretation * * * * ABDOMINAL X-RAY, 1 VIEW. CLINICAL INFORMATION: Abdominal distention. CURRENT STUDY: 09/23/2024 2:14 PM COMPARISON: Abdominal radiograph 09/22/2024 TECHNIQUE: Supine abdomen, 1 image(s). RESULT: See impression. IMPRESSION IMPRESSION: Lines, tubes, and devices: Right upper quadrant surgical clips and ana rosa. Surgical drain overlies the lower abdomen and pelvis.. Bowel: No dilated bowel. Other: Degenerative changes of the spine. [facility] Transcribe Date/Time: Sep 23 2024 2:37P Dictated by : RAVI KERNS MD This examination was interpreted and the report reviewed and electronically signed by: AUTUMN CORRALES MD on Sep 23 2024 4:40PM EST Steffen Scott MD RAD-PAMA Final Result * XR CHEST 1V FRONTAL PORT (09/23/2024 2:14 PM EDT) Anatomical Region Laterality Modality Chest Radiographic Lisa ging 09/23/2024 2:14 PM EDT Impressions 09/23/2024 2:38 PM EDT IMPRESSION: See result. Telegrapher Agent: [facility] Transcribe Date/Time: Sep 23 2024 2:35P Dictated by : BULMARO WINN MD This examination was interpreted and the report reviewed and electronically signed by: BULMARO WINN MD on Sep 23 2024 2:36PM EST Narrative 09/23/2024 2:38 PM EDT * * *Final Report* * * DATE OF EXAM: Sep 23 2024 2:14PM DESIRAE 5376 - XR CHEST 1V FRONTAL PORT / PROCEDURE REASON: Post-operative/post-procedure assessment * * * * Physician Interpretation * * * * EXAMINATION: CHEST RADIOGRAPH (PORTABLE SINGLE VIEW AP) Exam Date/Time: 09/23/2024 2:14 PM Clinical History: Post-operative/post-procedure assessment MQ: XCPMC_6 Comparison: 1 day prior RESULT: Lines, tubes, and devices: None. Lungs and pleura: Small to medium right hydropneumothorax has mildly improved since prior exam. Small left pleural effusion is unchanged. Patchy opacities are noted at the lung bases, likely related to atelectasis. Cardiomediastinal silhouette: Cardiomediastinal silhouette is mildly enlarged. Calcification of the aortic arch is noted. Other: . Procedure Note Provider, [facility] [place] - 09/23/2024 * * *Final Report* * * DATE OF EXAM: Sep 23 2024 2:14PM DESIRAE 5376 - XR CHEST 1V FRONTAL PORT / PROCEDURE REASON: Post-operative/post-procedure assessment * * * * Physician Interpretation * * * * EXAMINATION: CHEST RADIOGRAPH (PORTABLE SINGLE VIEW AP) Exam Date/Time: 09/23/2024 2:14 PM Clinical History: Post-operative/post-procedure assessment MQ: XCPMC_6 Comparison: 1 day prior RESULT: Lines, tubes, and devices: None. Lungs and pleura: Small to medium right hydropneumothorax has mildly improved since prior exam. Small left pleural effusion is unchanged. Patchy opacities are noted at the lung bases, likely related to atelectasis. Cardiomediastinal silhouette: Cardiomediastinal silhouette is mildly enlarged. Calcification of the aortic arch is noted. Other: . IMPRESSION IMPRESSION: See result. [facility] Transcribe Date/Time: Sep 23 2024 2:35P Dictated by : BULMARO WINN MD This examination was interpreted and the report reviewed and electronically signed by: BULMARO WINN MD on Sep 23 2024 2:36PM EST Xuan Melendrez PA-C RAD-PAMA Final Result * XR CHEST 1V FRONTAL PORT (09/22/2024 3:21 PM EDT) Anatomical Region Laterality Modality Chest Radiographic Lisa ging 09/22/2024 3:21 PM EDT Impressions 09/22/2024 5:52 PM EDT IMPRESSION: Lines, Tubes, and Devices: None Lungs and Pleura: Small effusions and overlying lung opacities unchanged. Small right upper pneumothorax increased after removal of right chest tube. Cardiomediastinal silhouette: Stable cardiac silhouette. Telegrapher Agent: [facility] Transcribe Date/Time: Sep 22 2024 5:49P Dictated by : LOREN PRINGLE MD This examination was interpreted and the report reviewed and electronically signed by: LOREN PRINGLE MD on Sep 22 2024 5:50PM EST Narrative 09/22/2024 5:52 PM EDT * * *Final Report* * * DATE OF EXAM: Sep 22 2024 3:21PM DESIRAE 5376 - XR CHEST 1V FRONTAL PORT / PROCEDURE REASON: Evaluate tube, line, or lead position * * * * Physician Interpretation * * * * CHEST RADIOGRAPH (PORTABLE SINGLE VIEW AP) Exam Date/Time: 09/22/2024 3:21 PM Indications: Evaluate tube, line, or lead position MQ: XCPMC_6 Comparison: Earlier the same day RESULTS: See Impression. Procedure Note Provider, [facility] [place] - 09/22/2024 * * *Final Report* * * DATE OF EXAM: Sep 22 2024 3:21PM DESIRAE 5376 - XR CHEST 1V FRONTAL PORT / PROCEDURE REASON: Evaluate tube, line, or lead position * * * * Physician Interpretation * * * * CHEST RADIOGRAPH (PORTABLE SINGLE VIEW AP) Exam Date/Time: 09/22/2024 3:21 PM Indications: Evaluate tube, line, or lead position MQ: XCPMC_6 Comparison: Earlier the same day RESULTS: See Impression. IMPRESSION IMPRESSION: Lines, Tubes, and Devices: None Lungs and Pleura: Small effusions and overlying lung opacities unchanged. Small right upper pneumothorax increased after removal of right chest tube. Cardiomediastinal silhouette: Stable cardiac silhouette. Telegrapher Agent: [facility] Transcribe Date/Time: Sep 22 2024 5:49P Dictated by : LOREN PRINGLE MD This examination was interpreted and the report reviewed and electronically signed by: LOREN PRINGLE MD on Sep 22 2024 5:50PM EST us Desiree Cruz PA-C RAD-PAMA Final Result * XR ABDOMEN 1V SUPINE (09/22/2024 10:52 AM EDT) Anatomical Region Laterality Modality Abdomen Radiographic Lisa ging 09/22/2024 10:5 2 AM EDT Impressions 09/22/2024 2:41 PM EDT IMPRESSION: Lines, tubes, and devices: Right pleural pigtail drainage catheter. Right upper quadrant surgical clips and ana rosa. Surgical drain overlies the lower abdomen and pelvis. Bowel: Mild gastric distention. No dilated small bowel. No colonic dilation. Other: Osseous degenerative changes. Telegrapher Agent: [facility] Transcribe Date/Time: Sep 22 2024 2:37P Dictated by : RUSTY OSMAN DO This examination was interpreted and the report reviewed and electronically signed by: RUSTY OSMAN DO on Sep 22 2024 2:38PM EST Narrative 09/22/2024 2:41 PM EDT * * *Final Report* * * DATE OF EXAM: Sep 22 2024 10:52AM DESIRAE 5289 - XR ABDOMEN 1V SUPINE / PROCEDURE REASON: Nausea/Vomiting * * * * Physician Interpretation * * * * ABDOMINAL X-RAY, 1 VIEW. CLINICAL INFORMATION: Nausea, vomiting. COMPARISON: X-ray 09/09/2024 TECHNIQUE: Supine abdomen, 1 image(s). RESULT: See impression. Procedure Note Provider, [facility] [place] - 09/22/2024 * * *Final Report* * * DATE OF EXAM: Sep 22 2024 10:52AM DESIRAE 5289 - XR ABDOMEN 1V SUPINE / PROCEDURE REASON: Nausea/Vomiting * * * * Physician Interpretation * * * * ABDOMINAL X-RAY, 1 VIEW. CLINICAL INFORMATION: Nausea, vomiting. COMPARISON: X-ray 09/09/2024 TECHNIQUE: Supine abdomen, 1 image(s). RESULT: See impression. IMPRESSION IMPRESSION: Lines, tubes, and devices: Right pleural pigtail drainage catheter. Right upper quadrant surgical clips and ana rosa. Surgical drain overlies the lower abdomen and pelvis. Bowel: Mild gastric distention. No dilated small bowel. No colonic dilation. Other: Osseous degenerative changes. Telegrapher Agent: [facility] Transcribe Date/Time: Sep 22 2024 2:37P Dictated by : RUSTY OSMAN DO This examination was interpreted and the report reviewed and electronically signed by: RUSTY OSMAN DO on Sep 22 2024 2:38PM EST us Desiree Ollis PA-C RAD-PAMA Final Result * XR CHEST 1V FRONTAL PORT (09/22/2024 9:39 AM EDT) Anatomical Region Laterality Modality Chest Radiographic Lisa ging 09/22/2024 9:39 AM EDT Impressions 09/22/2024 1:13 PM EDT IMPRESSION: Lines, Tubes, and Devices: Right basilar pleural pigtail drain. Lungs and Pleura: Small effusions and right greater than left overlying lung opacities unchanged. Small right upper pneumothorax. Cardiomediastinal silhouette: Stable cardiac silhouette. Telegrapher Agent: [facility] Transcribe Date/Time: Sep 22 2024 1:10P Dictated by : LOREN PRINGLE MD This examination was interpreted and the report reviewed and electronically signed by: LOREN PRINGLE MD on Sep 22 2024 1:11PM EST Narrative 09/22/2024 1:13 PM EDT * * *Final Report* * * DATE OF EXAM: Sep 22 2024 9:39AM DESIRAE 5376 - XR CHEST 1V FRONTAL PORT / PROCEDURE REASON: Pleural effusion * * * * Physician Interpretation * * * * CHEST RADIOGRAPH (PORTABLE SINGLE VIEW AP) Exam Date/Time: 09/22/2024 9:39 AM Indications: Pleural effusion MQ: XCPMC_6 Comparison: 1 day earlier RESULTS: See Impression. Procedure Note Provider, [facility] [place] - 09/22/2024 * * *Final Report* * * DATE OF EXAM: Sep 22 2024 9:39AM DESIRAE 5376 - XR CHEST 1V FRONTAL PORT / PROCEDURE REASON: Pleural effusion * * * * Physician Interpretation * * * * CHEST RADIOGRAPH (PORTABLE SINGLE VIEW AP) Exam Date/Time: 09/22/2024 9:39 AM Indications: Pleural effusion MQ: XCPMC_6 Comparison: 1 day earlier RESULTS: See Impression. IMPRESSION IMPRESSION: Lines, Tubes, and Devices: Right basilar pleural pigtail drain. Lungs and Pleura: Small effusions and right greater than left overlying lung opacities unchanged. Small right upper pneumothorax. Cardiomediastinal silhouette: Stable cardiac silhouette. Telegrapher Agent: [employer] Transcribe Date/Time: Sep 22 2024 1:10P Dictated by : LOREN PRINGLE MD This examination was interpreted and the report reviewed and electronically signed by: LOREN PRINGLE MD on Sep 22 2024 1:11PM EST Desiree Anthony BOOKER RAD-PAMA Final Result * XR CHEST 1V FRONTAL PORT (09/21/2024 10:48 AM EDT) Anatomical Region Laterality Modality Chest Radiographic Lisa ging 09/21/2024 10:4 2 AM EDT Impressions 09/21/2024 10:52 AM EDT IMPRESSION: See result. Telegrapher Agent: [facility] Transcribe Date/Time: Sep 21 2024 10:49A Dictated by : CAROLYN ALARCON MD This examination was interpreted and the report reviewed and electronically signed by: CAROLYN ALARCON MD on Sep 21 2024 10:50AM EST Narrative 09/21/2024 10:52 AM EDT * * *Final Report* * * DATE OF EXAM: Sep 21 2024 10:42AM DESIRAE 5376 - XR CHEST 1V FRONTAL PORT / PROCEDURE REASON: Pleural effusion * * * * Physician Interpretation * * * * EXAMINATION: CHEST RADIOGRAPH (PORTABLE SINGLE VIEW AP) Exam Date/Time: 09/21/2024 10:42 AM Clinical History: Pleural effusion MQ: XCPMC_6 Comparison: 1 day prior RESULT: Lines, tubes, and devices: Stable right pleural pigtail catheter. Lungs and pleura: There is a small right apical pneumothorax. Bilateral pleural effusions are present with adjacent atelectasis. Right effusion may be loculated. No pulmonary edema. Cardiomediastinal silhouette: Stable cardiomediastinal silhouette. Other: . Procedure Note Provider, [facility] [place] - 09/21/2024 * * *Final Report* * * DATE OF EXAM: Sep 21 2024 10:42AM DESIRAE 5376 - XR CHEST 1V FRONTAL PORT / PROCEDURE REASON: Pleural effusion * * * * Physician Interpretation * * * * EXAMINATION: CHEST RADIOGRAPH (PORTABLE SINGLE VIEW AP) Exam Date/Time: 09/21/2024 10:42 AM Clinical History: Pleural effusion MQ: XCPMC_6 Comparison: 1 day prior RESULT: Lines, tubes, and devices: Stable right pleural pigtail catheter. Lungs and pleura: There is a small right apical pneumothorax. Bilateral pleural effusions are present with adjacent atelectasis. Right effusion may be loculated. No pulmonary edema. Cardiomediastinal silhouette: Stable cardiomediastinal silhouette. Other: . IMPRESSION IMPRESSION: See result. Telegrapher Agent: [facility] Transcribe Date/Time: Sep 21 2024 10:49A Dictated by : CAROLYN ALARCON MD This examination was interpreted and the report reviewed and electronically signed by: CAROLYN ALARCON MD on Sep 21 2024 10:50AM EST us Desiree CHU-PAMDebby Final Result * ECHO (09/21/2024 10:22 AM EDT) 09/21/2024 10:2 2 AM EDT Impressions [facility] [place] - 09/21/2024 12:09 PM EDT CONCLUSIONS: - Technically difficult exam due to suboptimal positioning and body habitus. - Exam indication: Shortness of Breath - Left ventricular systolic function is normal. EF = 55 5% (visual est.) - The right ventricle is normal in size. Right ventricular systolic function is normal. - Exam was compared with the prior echocardiographic exam performed on 05/01/2024. no change, except for plerual effusion not seen today * * * Final * * * Narrative [facility] [place] - 09/21/2024 12:09 PM EDT Echocardiography Report: Transthoracic Echo Main [place] Bedside Date of service: 09/21/2024 10:22:04 AM CONSULTANT Ordering physician: XUAN JOAQUIN Exam indication: Shortness of Breath Technologist: Rosalba Amaral RD Fellow: Haroon Arredondo MD Interpreting physician: Cuate Rasheed MD PATIENT: Name: MR. CHARLES BLANDON : 1955 Age: 69 years Gender: M History of hypertension and chronic kidney disease. Previous cardiovascular interventions: Liver transplant Primary rhythm: sinus. Height: 175.26 cm BSA: 1.97 m Weight: 79.38 kg BMI: 25.8 kg/m Heart rate 65 bpm Blood pressure 96/48 mmHg Technically difficult exam due to suboptimal positioning and body habitus. Color Doppler was utilized to interrogate the cardiac valves assessed in this exam. MEASUREMENTS: Value Normal Max aortic dimension 3.7 cm Ao < 3.8 Ejection Fraction 55 % (visual est.) EF > 52 FINDINGS: LEFT VENTRICLE Left ventricular systolic function is normal. RIGHT VENTRICLE The right ventricle is normal in size. Right ventricular systolic function is normal. MITRAL VALVE There is no mitral valve regurgitation. TRICUSPID VALVE The tricuspid valve was not seen or not interrogated. AORTIC VALVE There is no aortic valve regurgitation. PULMONIC VALVE The pulmonic valve was not seen or not interrogated. AORTA The visualized aorta is normal in size. Measurements - Mid ascending aorta 3.7 cm. PERICARDIUM There is no pericardial effusion. Xuan Joaquin PA-C ECHO Final Result Performing Organization Address [facility] Co de Phone Number [facility] [place] [address] [place] [address] * LVEF TRANSTHORACIC ECHO (09/21/2024 10:22 AM EDT) LV Ejection Fraction 55 % [facility] Comment: (visual est.) EF > 52 An LV Ejection Fraction of > 50% is normal 09/21/2024 10:2 2 AM EDT Xuan Joaquin PA-C LVEF RESULTS Final Result Performing Organization Address [facility] Co de Phone Number [facility] [address] [place] [address] * XR CHEST 1V FRONTAL PORT (09/20/2024 11:11 AM EDT) Anatomical Region Laterality Modality Chest Radiographic Lisa ging 09/20/2024 11:1 1 AM EDT Impressions 09/20/2024 1:43 PM EDT IMPRESSION: See result. Telegrapher Agent: [facility] Transcribe Date/Time: Sep 20 2024 1:39P Dictated by : JOHANNA ESCOBAR MD This examination was interpreted and the report reviewed and electronically signed by: JOHANNA ESCOBAR MD on Sep 20 2024 1:41PM EST Narrative 09/20/2024 1:43 PM EDT * * *Final Report* * * DATE OF EXAM: Sep 20 2024 11:11AM DESIRAE 5376 - XR CHEST 1V FRONTAL PORT / PROCEDURE REASON: Pleural effusion * * * * Physician Interpretation * * * * EXAMINATION: CHEST RADIOGRAPH (PORTABLE SINGLE VIEW AP) Exam Date/Time: 09/20/2024 11:11 AM Clinical History: Pleural effusion MQ: XCPMC_6 Comparison: 09/16/2024. RESULT: Lines, tubes, and devices: Interval removal of right IJ central venous catheter. Stable right basilar pigtail pleural catheter. Lungs and pleura: Small bilateral pleural effusions with bibasilar atelectasis. Increased small right apical pneumothorax. Cardiomediastinal silhouette: Stable cardiomediastinal silhouette. Other: . Procedure Note Provider, [facility] [place] - 09/20/2024 * * *Final Report* * * DATE OF EXAM: Sep 20 2024 11:11AM DESIRAE [id number] - XR CHEST 1V FRONTAL PORT / PROCEDURE REASON: Pleural effusion * * * * Physician Interpretation * * * * EXAMINATION: CHEST RADIOGRAPH (PORTABLE SINGLE VIEW AP) Exam Date/Time: 09/20/2024 11:11 AM Clinical History: Pleural effusion MQ: [id number]_6 Comparison: 09/16/2024. RESULT: Lines, tubes, and devices: Interval removal of right IJ central venous catheter. Stable right basilar pigtail pleural catheter. Lungs and pleura: Small bilateral pleural effusions with bibasilar atelectasis. Increased small right apical pneumothorax. Cardiomediastinal silhouette: Stable cardiomediastinal silhouette. Other: . IMPRESSION IMPRESSION: See result. Telegrapher Agent: PSCB Transcribe Date/Time: Sep 20 2024 1:39P Dictated by : JOHANNA ESCOBAR MD This examination was interpreted and the report reviewed and electronically signed by: JOHANNA ESCOBAR MD on Sep 20 2024 1:41PM EST us Xuan Joaquin PA-C RAD-PAMA Final Result * US DOPPLER COMPLETE (09/20/2024 7:50 AM EDT) Anatomical Region Laterality Modality Ultrasound 09/20/2024 7:50 AM EDT Impressions 09/20/2024 8:15 AM EDT IMPRESSION: Patent hepatic vasculature with appropriately directed flow. Grossly similar geographic area of heterogenous parenchyma in hepatic segments 4A/8. Findings are nonspecific and possibly related to operative handling. Otherwise unremarkable sonographic appearance of the transplant liver. Small peritransplant collection Small volume ascites. Telegrapher Agent: PSCPatricia Transcribe Date/Time: Sep 20 2024 7:53A Dictated by : LEDY WILSON MD This examination was interpreted and the report reviewed and electronically signed by: KISHA ANDRADE MD on Sep 20 2024 8:13AM EST Narrative 09/20/2024 8:15 AM EDT * * *Final Report* * * DATE OF EXAM: Sep 20 2024 7:50AM [facility] 1033 - US DOPPLER COMPLETE / PROCEDURE REASON: Liver transplant * * * * Physician Interpretation * * * * EXAMINATION: LIVER VASCULAR ULTRASOUND WITH DOPPLER IMAGING CLINICAL HISTORY: Status post OLT 09/09/2024 TECHNIQUE: Sonography of the liver with color and spectral Doppler imaging of the hepatic vasculature was performed. Images were obtained and stored in a permanent archive. MQ: USLV_1 COMPARISON: 09/18/2024 RESULT: Sonographic Findings: Pancreas: Normal sonographic appearance. Portions obscured: tail Liver: Echotexture/Echogenicity: Similar geographic area of heterogenous hypoechoic parenchyma in segments 4A/8, nonspecific and possibly related to operative handling. Surface contour: Smooth Lesions: None. Biliary: No intrahepatic biliary duct dilation. CBD: 0.5 cm at the hilum. Gallbladder: Cholecystectomy Right Kidney: No hydronephrosis. Spleen: Craniocaudal length 9.6 cm, normal. There are no splenic lesions. Other: Small volume ascites. 6.1 x 3.9 x 4.5 cm heterogenous gallbladder fossa collection, likely postoperative hematoma, not significantly changed from prior. HEPATIC VASCULATURE: PORTAL SYSTEM: -Splenic Vein: Patent with antegrade flow (towards the liver). -Main PV: Patent with phasic antegrade flow (towards liver). 70-79 cm/sec -Right anterior PV: Patent with phasic antegrade flow (towards liver). 29 cm/sec -Right posterior PV: Patent with phasic antegrade flow (towards liver). 31 cm/sec -Left PV: Patent with phasic antegrade flow (towards liver). 18 cm/sec HEPATIC ARTERIES: - Main THIBODEAUX: Normal waveform PSV: 83-103 cm/sec. RI: 0.85 - Right anterior THIBODEAUX: Normal waveform PSV: 60 cm/sec. RI: 0.80 - Right posterior THIBODEAUX: Normal waveform PSV: 53 cm/sec. RI: 0.77 - Left THIBODEAUX: Normal waveform PSV: 61 cm/sec. RI: 0.84 HEPATIC VEINS: -Left: Patent with triphasic waveform. -Middle: Patent with triphasic waveform. -Right: Patent with triphasic waveform. IVC: Patent with normal, phasic wave form. Procedure Note Provider, [facility] [place] - 09/20/2024 * * *Final Report* * * DATE OF EXAM: Sep 20 2024 7:50AM U [id number] - US DOPPLER COMPLETE / PROCEDURE REASON: Liver transplant * * * * Physician Interpretation * * * * EXAMINATION: LIVER VASCULAR ULTRASOUND WITH DOPPLER IMAGING CLINICAL HISTORY: Status post OLT 09/09/2024 TECHNIQUE: Sonography of the liver with color and spectral Doppler imaging of the hepatic vasculature was performed. Images were obtained and stored in a permanent archive. MQ: USLV_1 COMPARISON: 09/18/2024 RESULT: Sonographic Findings: Pancreas: Normal sonographic appearance. Portions obscured: tail Liver: Echotexture/Echogenicity: Similar geographic area of heterogenous hypoechoic parenchyma in segments 4A/8, nonspecific and possibly related to operative handling. Surface contour: Smooth Lesions: None. Biliary: No intrahepatic biliary duct dilation. CBD: 0.5 cm at the hilum. Gallbladder: Cholecystectomy Right Kidney: No hydronephrosis. Spleen: Craniocaudal length 9.6 cm, normal. There are no splenic lesions. Other: Small volume ascites. 6.1 x 3.9 x 4.5 cm heterogenous gallbladder fossa collection, likely postoperative hematoma, not significantly changed from prior. HEPATIC VASCULATURE: PORTAL SYSTEM: -Splenic Vein: Patent with antegrade flow (towards the liver). -Main PV: Patent with phasic antegrade flow (towards liver). 70-79 cm/sec -Right anterior PV: Patent with phasic antegrade flow (towards liver). 29 cm/sec -Right posterior PV: Patent with phasic antegrade flow (towards liver). 31 cm/sec -Left PV: Patent with phasic antegrade flow (towards liver). 18 cm/sec HEPATIC ARTERIES: - Main THIBODEAUX: Normal waveform PSV: 83-103 cm/sec. RI: 0.85 - Right anterior THIBODEAUX: Normal waveform PSV: 60 cm/sec. RI: 0.80 - Right posterior THIBODEAUX: Normal waveform PSV: 53 cm/sec. RI: 0.77 - Left THIBODEAUX: Normal waveform PSV: 61 cm/sec. RI: 0.84 HEPATIC VEINS: -Left: Patent with triphasic waveform. -Middle: Patent with triphasic waveform. -Right: Patent with triphasic waveform. IVC: Patent with normal, phasic wave form. IMPRESSION IMPRESSION: Patent hepatic vasculature with appropriately directed flow. Grossly similar geographic area of heterogenous parenchyma in hepatic segments 4A/8. Findings are nonspecific and possibly related to operative handling. Otherwise unremarkable sonographic appearance of the transplant liver. Small peritransplant collection Small volume ascites. Telegrapher Agent: [facility] Transcribe Date/Time: Sep 20 2024 7:53A Dictated by : LEDY WILSON MD This examination was interpreted and the report reviewed and electronically signed by: KISHA ANDRAED MD on Sep 20 2024 8:13AM EST us Xuan Melendrez PA-C US-PAMA Final Result * US ABD LIVER VASCULAR TRANSPLANT ([facility]) (09/20/2024 7:49 AM EDT) Anatomical Region Laterality Modality Abdomen Ultrasound 09/20/2024 7:30 AM EDT Impressions 09/20/2024 8:15 AM EDT IMPRESSION: Patent hepatic vasculature with appropriately directed flow. Grossly similar geographic area of heterogenous parenchyma in hepatic segments 4A/8. Findings are nonspecific and possibly related to operative handling. Otherwise unremarkable sonographic appearance of the transplant liver. Small peritransplant collection Small volume ascites. Telegrapher Agent: [facility] Transcribe Date/Time: Sep 20 2024 7:53A Dictated by : LEDY WILSON MD This examination was interpreted and the report reviewed and electronically signed by: KISHA ANDRADE MD on Sep 20 2024 8:13AM EST Narrative 09/20/2024 8:15 AM EDT * * *Final Report* * * DATE OF EXAM: Sep 20 2024 7:30AM [facility] 0685 - US ABD LIVER VASCULAR TRANSPLANT / PROCEDURE REASON: Liver transplant * * * * Physician Interpretation * * * * EXAMINATION: LIVER VASCULAR ULTRASOUND WITH DOPPLER IMAGING CLINICAL HISTORY: Status post OLT 09/09/2024 TECHNIQUE: Sonography of the liver with color and spectral Doppler imaging of the hepatic vasculature was performed. Images were obtained and stored in a permanent archive. MQ: USLV_1 COMPARISON: 09/18/2024 RESULT: Sonographic Findings: Pancreas: Normal sonographic appearance. Portions obscured: tail Liver: Echotexture/Echogenicity: Similar geographic area of heterogenous hypoechoic parenchyma in segments 4A/8, nonspecific and possibly related to operative handling. Surface contour: Smooth Lesions: None. Biliary: No intrahepatic biliary duct dilation. CBD: 0.5 cm at the hilum. Gallbladder: Cholecystectomy Right Kidney: No hydronephrosis. Spleen: Craniocaudal length 9.6 cm, normal. There are no splenic lesions. Other: Small volume ascites. 6.1 x 3.9 x 4.5 cm heterogenous gallbladder fossa collection, likely postoperative hematoma, not significantly changed from prior. HEPATIC VASCULATURE: PORTAL SYSTEM: -Splenic Vein: Patent with antegrade flow (towards the liver). -Main PV: Patent with phasic antegrade flow (towards liver). 70-79 cm/sec -Right anterior PV: Patent with phasic antegrade flow (towards liver). 29 cm/sec -Right posterior PV: Patent with phasic antegrade flow (towards liver). 31 cm/sec -Left PV: Patent with phasic antegrade flow (towards liver). 18 cm/sec HEPATIC ARTERIES: - Main THIBODEAUX: Normal waveform PSV: 83-103 cm/sec. RI: 0.85 - Right anterior THIBODEAUX: Normal waveform PSV: 60 cm/sec. RI: 0.80 - Right posterior THIBODEAUX: Normal waveform PSV: 53 cm/sec. RI: 0.77 - Left THIBODEAUX: Normal waveform PSV: 61 cm/sec. RI: 0.84 HEPATIC VEINS: -Left: Patent with triphasic waveform. -Middle: Patent with triphasic waveform. -Right: Patent with triphasic waveform. IVC: Patent with normal, phasic wave form. Procedure Note Provider, [facility] [place] - 09/20/2024 * * *Final Report* * * DATE OF EXAM: Sep 20 2024 7:30AM U [id number] - US ABD LIVER VASCULAR TRANSPLANT / PROCEDURE REASON: Liver transplant * * * * Physician Interpretation * * * * EXAMINATION: LIVER VASCULAR ULTRASOUND WITH DOPPLER IMAGING CLINICAL HISTORY: Status post OLT 09/09/2024 TECHNIQUE: Sonography of the liver with color and spectral Doppler imaging of the hepatic vasculature was performed. Images were obtained and stored in a permanent archive. MQ: USLV_1 COMPARISON: 09/18/2024 RESULT: Sonographic Findings: Pancreas: Normal sonographic appearance. Portions obscured: tail Liver: Echotexture/Echogenicity: Similar geographic area of heterogenous hypoechoic parenchyma in segments 4A/8, nonspecific and possibly related to operative handling. Surface contour: Smooth Lesions: None. Biliary: No intrahepatic biliary duct dilation. CBD: 0.5 cm at the hilum. Gallbladder: Cholecystectomy Right Kidney: No hydronephrosis. Spleen: Craniocaudal length 9.6 cm, normal. There are no splenic lesions. Other: Small volume ascites. 6.1 x 3.9 x 4.5 cm heterogenous gallbladder fossa collection, likely postoperative hematoma, not significantly changed from prior. HEPATIC VASCULATURE: PORTAL SYSTEM: -Splenic Vein: Patent with antegrade flow (towards the liver). -Main PV: Patent with phasic antegrade flow (towards liver). 70-79 cm/sec -Right anterior PV: Patent with phasic antegrade flow (towards liver). 29 cm/sec -Right posterior PV: Patent with phasic antegrade flow (towards liver). 31 cm/sec -Left PV: Patent with phasic antegrade flow (towards liver). 18 cm/sec HEPATIC ARTERIES: - Main THIBODEAUX: Normal waveform PSV: 83-103 cm/sec. RI: 0.85 - Right anterior THIBODEAUX: Normal waveform PSV: 60 cm/sec. RI: 0.80 - Right posterior THIBODEAUX: Normal waveform PSV: 53 cm/sec. RI: 0.77 - Left THIBODEAUX: Normal waveform PSV: 61 cm/sec. RI: 0.84 HEPATIC VEINS: -Left: Patent with triphasic waveform. -Middle: Patent with triphasic waveform. -Right: Patent with triphasic waveform. IVC: Patent with normal, phasic wave form. IMPRESSION IMPRESSION: Patent hepatic vasculature with appropriately directed flow. Grossly similar geographic area of heterogenous parenchyma in hepatic segments 4A/8. Findings are nonspecific and possibly related to operative handling. Otherwise unremarkable sonographic appearance of the transplant liver. Small peritransplant collection Small volume ascites. Telegrapher Agent: [facility] Transcribe Date/Time: Sep 20 2024 7:53A Dictated by : LEDY WILSON MD This examination was interpreted and the report reviewed and electronically signed by: KISHA ANDRADE MD on Sep 20 2024 8:13AM EST us Xuan Melendrez PA-C US-PAMA Final Result * [facility] LIVER VASCULAR TRANSPLANT () (09/18/2024 11:14 AM EDT) Anatomical Region Laterality Modality Abdomen Ultrasound 09/18/2024 11:1 4 AM EDT Impressions 09/18/2024 11:36 AM EDT IMPRESSION: PATENT HEPATIC VASCULATURE WITH APPROPRIATELY DIRECTED FLOW. GEOGRAPHIC REGION OF HETEROGENEOUS PARENCHYMA IN HEPATIC SEGMENTS 4A/8, GROSSLY SIMILAR TO RECENT PRIOR AND NONSPECIFIC, HOWEVER POSSIBLY RELATED TO OPERATIVE HANDLING. OTHERWISE UNREMARKABLE SONOGRAPHIC APPEARANCE OF THE TRANSPLANT LIVER. SMALL PERITRANSPLANT COLLECTION AND SMALL VOLUME ASCITES. Telegrapher Agent: [facility] Transcribe Date/Time: Sep 18 2024 11:24A Dictated by : RUSTY OSMAN DO This examination was interpreted and the report reviewed and electronically signed by: RUSTY OSMAN DO on Sep 18 2024 11:34AM EST Narrative 09/18/2024 11:36 AM EDT * * *Final Report* * * DATE OF EXAM: Sep 18 2024 11:14AM [facility] 0685 - [facility] LIVER VASCULAR TRANSPLANT / PROCEDURE REASON: Liver transplant * * * * Physician Interpretation * * * * LIVER VASCULAR ULTRASOUND WITH DOPPLER IMAGING HISTORY: Liver transplant 09/09/2024, follow-up. COMPARISON: Ultrasound 09/17/2024, 09/16/2024. MRI 09/02/2024. TECHNIQUE: Sonography of the liver with color and spectral Doppler imaging of the hepatic vasculature was performed. Images were obtained and stored in a permanent archive. MQ: USLV_1 RESULT: SONOGRAPHIC FINDINGS: Pancreas: Normal sonographic appearance where visualized. Portions obscured: Tail. Liver: Echotexture/echogenicity: Geographic region of heterogeneously hypoechoic parenchyma in segments 4A/8, grossly similar to recent prior and nonspecific, however possibly related to operative handling. Surface contour: Smooth Lesions: None. Biliary: No intrahepatic biliary duct dilation. CBD: 0.6 cm at the hilum. Right Kidney: No hydronephrosis. Spleen: The craniocaudal length of the spleen is 10.4 cm, normal. No suspicious splenic lesions. Other: Heterogeneously hypoechoic collection at the gallbladder fossa measuring 5.3 x 3.9 x 3.4 cm, likely subacute postoperative hematoma and not significantly changed. HEPATIC VASCULATURE: Portal System: -Splenic Vein: Patent with antegrade flow (towards the liver). -Main PV: Patent with phasic antegrade flow (towards liver). 48 cm/sec -Right anterior PV: Patent with phasic antegrade flow (towards liver). 37 cm/sec -Right posterior PV: Patent with phasic antegrade flow (towards liver). 32 cm/sec -Left PV: Patent with phasic antegrade flow (towards liver). 20 cm/sec Hepatic Arteries: - Main THIBODEAUX: Normal waveform PSV: 50 cm/sec. RI: 0.83 - Right anterior THIBODEAUX: Normal waveform PSV: 78 cm/sec. RI: 0.83 - Right posterior THIBODEAUX: Normal waveform PSV: 29 cm/sec. RI: 0.85 - Left THIBODEAUX: Normal waveform PSV: 34 cm/sec. RI: 0.83 Hepatic Veins: -Left: Patent with triphasic waveform. -Middle: Patent with triphasic waveform. -Right: Patent with triphasic waveform. IVC: Patent with normal, phasic waveform where visualized. Procedure Note Provider, [facility] [place] - 09/18/2024 * * *Final Report* * * DATE OF EXAM: Sep 18 2024 11:14AM [facility] 0685 - ABD LIVER VASCULAR TRANSPLANT / PROCEDURE REASON: Liver transplant * * * * Physician Interpretation * * * * LIVER VASCULAR ULTRASOUND WITH DOPPLER IMAGING HISTORY: Liver transplant 09/09/2024, follow-up. COMPARISON: Ultrasound 09/17/2024, 09/16/2024. MRI 09/02/2024. TECHNIQUE: Sonography of the liver with color and spectral Doppler imaging of the hepatic vasculature was performed. Images were obtained and stored in a permanent archive. MQ: USLV_1 RESULT: SONOGRAPHIC FINDINGS: Pancreas: Normal sonographic appearance where visualized. Portions obscured: Tail. Liver: Echotexture/echogenicity: Geographic region of heterogeneously hypoechoic parenchyma in segments 4A/8, grossly similar to recent prior and nonspecific, however possibly related to operative handling. Surface contour: Smooth Lesions: None. Biliary: No intrahepatic biliary duct dilation. CBD: 0.6 cm at the hilum. Right Kidney: No hydronephrosis. Spleen: The craniocaudal length of the spleen is 10.4 cm, normal. No suspicious splenic lesions. Other: Heterogeneously hypoechoic collection at the gallbladder fossa measuring 5.3 x 3.9 x 3.4 cm, likely subacute postoperative hematoma and not significantly changed. HEPATIC VASCULATURE: Portal System: -Splenic Vein: Patent with antegrade flow (towards the liver). -Main PV: Patent with phasic antegrade flow (towards liver). 48 cm/sec -Right anterior PV: Patent with phasic antegrade flow (towards liver). 37 cm/sec -Right posterior PV: Patent with phasic antegrade flow (towards liver). 32 cm/sec -Left PV: Patent with phasic antegrade flow (towards liver). 20 cm/sec Hepatic Arteries: - Main THIBODEAUX: Normal waveform PSV: 50 cm/sec. RI: 0.83 - Right anterior THIBODEAUX: Normal waveform PSV: 78 cm/sec. RI: 0.83 - Right posterior THIBODEAUX: Normal waveform PSV: 29 cm/sec. RI: 0.85 - Left THIBODEAUX: Normal waveform PSV: 34 cm/sec. RI: 0.83 Hepatic Veins: -Left: Patent with triphasic waveform. -Middle: Patent with triphasic waveform. -Right: Patent with triphasic waveform. IVC: Patent with normal, phasic waveform where visualized. IMPRESSION IMPRESSION: PATENT HEPATIC VASCULATURE WITH APPROPRIATELY DIRECTED FLOW. GEOGRAPHIC REGION OF HETEROGENEOUS PARENCHYMA IN HEPATIC SEGMENTS 4A/8, GROSSLY SIMILAR TO RECENT PRIOR AND NONSPECIFIC, HOWEVER POSSIBLY RELATED TO OPERATIVE HANDLING. OTHERWISE UNREMARKABLE SONOGRAPHIC APPEARANCE OF THE TRANSPLANT LIVER. SMALL PERITRANSPLANT COLLECTION AND SMALL VOLUME ASCITES. Telegrapher Agent: [facility] Transcribe Date/Time: Sep 18 2024 11:24A Dictated by : RUSTY OSMAN, DO This examination was interpreted and the report reviewed and electronically signed by: RUSTY OSMAN DO on Sep 18 2024 11:34AM EST us Xuan Melendrez PA-C US-PAMA Final Result * US DOPPLER COMPLETE (09/18/2024 11:13 AM EDT) Anatomical Region Laterality Modality Ultrasound 09/18/2024 11:0 7 AM EDT Impressions 09/18/2024 11:36 AM EDT IMPRESSION: PATENT HEPATIC VASCULATURE WITH APPROPRIATELY DIRECTED FLOW. GEOGRAPHIC REGION OF HETEROGENEOUS PARENCHYMA IN HEPATIC SEGMENTS 4A/8, GROSSLY SIMILAR TO RECENT PRIOR AND NONSPECIFIC, HOWEVER POSSIBLY RELATED TO OPERATIVE HANDLING. OTHERWISE UNREMARKABLE SONOGRAPHIC APPEARANCE OF THE TRANSPLANT LIVER. SMALL PERITRANSPLANT COLLECTION AND SMALL VOLUME ASCITES. Telegrapher Agent: [facility]INI Transcribe Date/Time: Sep 18 2024 11:24A Dictated by : RUSTY OSMAN DO This examination was interpreted and the report reviewed and electronically signed by: RUSTY OSMAN DO on Sep 18 2024 11:34AM EST Narrative 09/18/2024 11:36 AM EDT * * *Final Report* * * DATE OF EXAM: Sep 18 2024 11:07AM [facility] 1033 - US DOPPLER COMPLETE / PROCEDURE REASON: Liver transplant * * * * Physician Interpretation * * * * LIVER VASCULAR ULTRASOUND WITH DOPPLER IMAGING HISTORY: Liver transplant 09/09/2024, follow-up. COMPARISON: Ultrasound 09/17/2024, 09/16/2024. MRI 09/02/2024. TECHNIQUE: Sonography of the liver with color and spectral Doppler imaging of the hepatic vasculature was performed. Images were obtained and stored in a permanent archive. MQ: USLV_1 RESULT: SONOGRAPHIC FINDINGS: Pancreas: Normal sonographic appearance where visualized. Portions obscured: Tail. Liver: Echotexture/echogenicity: Geographic region of heterogeneously hypoechoic parenchyma in segments 4A/8, grossly similar to recent prior and nonspecific, however possibly related to operative handling. Surface contour: Smooth Lesions: None. Biliary: No intrahepatic biliary duct dilation. CBD: 0.6 cm at the hilum. Right Kidney: No hydronephrosis. Spleen: The craniocaudal length of the spleen is 10.4 cm, normal. No suspicious splenic lesions. Other: Heterogeneously hypoechoic collection at the gallbladder fossa measuring 5.3 x 3.9 x 3.4 cm, likely subacute postoperative hematoma and not significantly changed. HEPATIC VASCULATURE: Portal System: -Splenic Vein: Patent with antegrade flow (towards the liver). -Main PV: Patent with phasic antegrade flow (towards liver). 48 cm/sec -Right anterior PV: Patent with phasic antegrade flow (towards liver). 37 cm/sec -Right posterior PV: Patent with phasic antegrade flow (towards liver). 32 cm/sec -Left PV: Patent with phasic antegrade flow (towards liver). 20 cm/sec Hepatic Arteries: - Main THIBODEAUX: Normal waveform PSV: 50 cm/sec. RI: 0.83 - Right anterior THIBODEAUX: Normal waveform PSV: 78 cm/sec. RI: 0.83 - Right posterior THIBODEAUX: Normal waveform PSV: 29 cm/sec. RI: 0.85 - Left THIBODEAUX: Normal waveform PSV: 34 cm/sec. RI: 0.83 Hepatic Veins: -Left: Patent with triphasic waveform. -Middle: Patent with triphasic waveform. -Right: Patent with triphasic waveform. IVC: Patent with normal, phasic waveform where visualized. Procedure Note Provider, [facility] [place] - 09/18/2024 * * *Final Report* * * DATE OF EXAM: Sep 18 2024 11:07AM [facility] 1033 - US DOPPLER COMPLETE / PROCEDURE REASON: Liver transplant * * * * Physician Interpretation * * * * LIVER VASCULAR ULTRASOUND WITH DOPPLER IMAGING HISTORY: Liver transplant 09/09/2024, follow-up. COMPARISON: Ultrasound 09/17/2024, 09/16/2024. MRI 09/02/2024. TECHNIQUE: Sonography of the liver with color and spectral Doppler imaging of the hepatic vasculature was performed. Images were obtained and stored in a permanent archive. MQ: USLV_1 RESULT: SONOGRAPHIC FINDINGS: Pancreas: Normal sonographic appearance where visualized. Portions obscured: Tail. Liver: Echotexture/echogenicity: Geographic region of heterogeneously hypoechoic parenchyma in segments 4A/8, grossly similar to recent prior and nonspecific, however possibly related to operative handling. Surface contour: Smooth Lesions: None. Biliary: No intrahepatic biliary duct dilation. CBD: 0.6 cm at the hilum. Right Kidney: No hydronephrosis. Spleen: The craniocaudal length of the spleen is 10.4 cm, normal. No suspicious splenic lesions. Other: Heterogeneously hypoechoic collection at the gallbladder fossa measuring 5.3 x 3.9 x 3.4 cm, likely subacute postoperative hematoma and not significantly changed. HEPATIC VASCULATURE: Portal System: -Splenic Vein: Patent with antegrade flow (towards the liver). -Main PV: Patent with phasic antegrade flow (towards liver). 48 cm/sec -Right anterior PV: Patent with phasic antegrade flow (towards liver). 37 cm/sec -Right posterior PV: Patent with phasic antegrade flow (towards liver). 32 cm/sec -Left PV: Patent with phasic antegrade flow (towards liver). 20 cm/sec Hepatic Arteries: - Main THIBODEAUX: Normal waveform PSV: 50 cm/sec. RI: 0.83 - Right anterior THIBODEAUX: Normal waveform PSV: 78 cm/sec. RI: 0.83 - Right posterior THIBODEAUX: Normal waveform PSV: 29 cm/sec. RI: 0.85 - Left THIBODEAUX: Normal waveform PSV: 34 cm/sec. RI: 0.83 Hepatic Veins: -Left: Patent with triphasic waveform. -Middle: Patent with triphasic waveform. -Right: Patent with triphasic waveform. IVC: Patent with normal, phasic waveform where visualized. IMPRESSION IMPRESSION: PATENT HEPATIC VASCULATURE WITH APPROPRIATELY DIRECTED FLOW. GEOGRAPHIC REGION OF HETEROGENEOUS PARENCHYMA IN HEPATIC SEGMENTS 4A/8, GROSSLY SIMILAR TO RECENT PRIOR AND NONSPECIFIC, HOWEVER POSSIBLY RELATED TO OPERATIVE HANDLING. OTHERWISE UNREMARKABLE SONOGRAPHIC APPEARANCE OF THE TRANSPLANT LIVER. SMALL PERITRANSPLANT COLLECTION AND SMALL VOLUME ASCITES. Telegrapher [facility]: [facility] Transcribe Date/Time: Sep 18 2024 11:24A Dictated by : RUSTY OSMAN DO This examination was interpreted and the report reviewed and electronically signed by: RUSTY OSMAN DO on Sep 18 2024 11:34AM EST us Xuan Melendrez PA-C US-PAMA Final Result * US ABD LIVER VASCULAR (09/17/2024 9:57 AM EDT) Anatomical Region Laterality Modality Abdomen Ultrasound 09/17/2024 9:40 AM EDT Impressions 09/17/2024 10:59 AM EDT IMPRESSION: Patent hepatic vasculature with improved arterial waveforms compared to prior study, now normal. Small to moderate volume abdominal pelvic ascites similar to prior study. Persistent postoperative blood products in the gallbladder fossa. Stable geographic region of heterogeneity in the transplant liver which may relate to evolving operative handling changes. Telegrapher Agent: SRINI Transcribe Date/Time: Sep 17 2024 10:45A Dictated by : KISHA ANDRADE MD This examination was interpreted and the report reviewed and electronically signed by: KISHA ANDRADE MD on Sep 17 2024 10:57AM EST Narrative 09/17/2024 10:59 AM EDT * * *Final Report* * * DATE OF EXAM: Sep 17 2024 9:40AM U 1233 - US ABD LIVER VASCULAR / PROCEDURE REASON: Liver transplant * * * * Physician Interpretation * * * * EXAMINATION: LIVER VASCULAR ULTRASOUND WITH DOPPLER IMAGING CLINICAL HISTORY: Liver transplantation 09/08/2024. Follow-up study. TECHNIQUE: Sonography of the liver with color and spectral Doppler imaging of the hepatic vasculature was performed. Images were obtained and stored in a permanent archive. MQ: USLV_1 COMPARISON: 09/16/2024 RESULT: Sonographic Findings: Pancreas: Normal sonographic appearance. Portions obscured: tail Liver: Echotexture and echogenicity: Heterogeneous with geographic region of more hypoechoic parenchyma in segment VIII/Emilie. Surface contour: Smooth Lesions: None. Biliary: No intrahepatic biliary duct dilation. CBD: 0.7 cm at the hilum. Gallbladder: Absent Right Kidney: No hydronephrosis. Spleen: Craniocaudal length 9.1 cm, normal. There are no splenic lesions. Other: Small to moderate volume ascites. Small to moderate volume ascites. Persistent heterogeneous fluid in the gallbladder fossa, likely evolving postoperative blood products. HEPATIC VASCULATURE: PORTAL SYSTEM: -Splenic Vein: Patent with antegrade flow (towards the liver). -Main PV: Patent with phasic antegrade flow (towards liver). 50 cm/sec -Right anterior PV: Patent with phasic antegrade flow (towards liver). 32 cm/sec -Right posterior PV: Patent with phasic antegrade flow (towards liver). 40 cm/sec -Left PV: Patent with phasic antegrade flow (towards liver). 18 cm/sec HEPATIC ARTERIES: - Main THIBODEAUX: Normal waveform PSV: 54 cm/sec. RI: 0.72 - Right anterior THIBODEAUX: Normal waveform PSV: 61 cm/sec. RI: 0.76 - Right posterior THIBODEAUX: Normal waveform PSV: 36 cm/sec. RI: 0.75 - Left THIBODEAUX: Normal waveform PSV: 28 cm/sec. RI: 0.79 HEPATIC VEINS: -Left: Patent with triphasic waveform. -Middle: Patent with triphasic waveform. -Right: Patent with triphasic waveform. IVC: Patent with normal, phasic wave form. Procedure Note Provider, [facility] [place] - 09/17/2024 * * *Final Report* * * DATE OF EXAM: Sep 17 2024 9:40AM U 1233 - US ABD LIVER VASCULAR / PROCEDURE REASON: Liver transplant * * * * Physician Interpretation * * * * EXAMINATION: LIVER VASCULAR ULTRASOUND WITH DOPPLER IMAGING CLINICAL HISTORY: Liver transplantation 09/08/2024. Follow-up study. TECHNIQUE: Sonography of the liver with color and spectral Doppler imaging of the hepatic vasculature was performed. Images were obtained and stored in a permanent archive. MQ: USLV_1 COMPARISON: 09/16/2024 RESULT: Sonographic Findings: Pancreas: Normal sonographic appearance. Portions obscured: tail Liver: Echotexture and echogenicity: Heterogeneous with geographic region of more hypoechoic parenchyma in segment VIII/Emilie. Surface contour: Smooth Lesions: None. Biliary: No intrahepatic biliary duct dilation. CBD: 0.7 cm at the hilum. Gallbladder: Absent Right Kidney: No hydronephrosis. Spleen: Craniocaudal length 9.1 cm, normal. There are no splenic lesions. Other: Small to moderate volume ascites. Small to moderate volume ascites. Persistent heterogeneous fluid in the gallbladder fossa, likely evolving postoperative blood products. HEPATIC VASCULATURE: PORTAL SYSTEM: -Splenic Vein: Patent with antegrade flow (towards the liver). -Main PV: Patent with phasic antegrade flow (towards liver). 50 cm/sec -Right anterior PV: Patent with phasic antegrade flow (towards liver). 32 cm/sec -Right posterior PV: Patent with phasic antegrade flow (towards liver). 40 cm/sec -Left PV: Patent with phasic antegrade flow (towards liver). 18 cm/sec HEPATIC ARTERIES: - Main THIBODEAUX: Normal waveform PSV: 54 cm/sec. RI: 0.72 - Right anterior THIBODEAUX: Normal waveform PSV: 61 cm/sec. RI: 0.76 - Right posterior THIBODEAUX: Normal waveform PSV: 36 cm/sec. RI: 0.75 - Left THIBODEAUX: Normal waveform PSV: 28 cm/sec. RI: 0.79 HEPATIC VEINS: -Left: Patent with triphasic waveform. -Middle: Patent with triphasic waveform. -Right: Patent with triphasic waveform. IVC: Patent with normal, phasic wave form. IMPRESSION IMPRESSION: Patent hepatic vasculature with improved arterial waveforms compared to prior study, now normal. Small to moderate volume abdominal pelvic ascites similar to prior study. Persistent postoperative blood products in the gallbladder fossa. Stable geographic region of heterogeneity in the transplant liver which may relate to evolving operative handling changes. Telegrapher Agent: [facility] Transcribe Date/Time: Sep 17 2024 10:45A Dictated by : KISHA ANDRADE MD This examination was interpreted and the report reviewed and electronically signed by: KISHA ANDRADE MD on Sep 17 2024 10:57AM EST us Bassam Banks MD US-PAMA Final Result * US DOPPLER COMPLETE (09/17/2024 9:57 AM EDT) Anatomical Region Laterality Modality Ultrasound 09/17/2024 9:57 AM EDT Impressions 09/17/2024 10:59 AM EDT IMPRESSION: Patent hepatic vasculature with improved arterial waveforms compared to prior study, now normal. Small to moderate volume abdominal pelvic ascites similar to prior study. Persistent postoperative blood products in the gallbladder fossa. Stable geographic region of heterogeneity in the transplant liver which may relate to evolving operative handling changes. Telegrapher Agent: [facility] Transcribe Date/Time: Sep 17 2024 10:45A Dictated by : KISHA ANDRADE MD This examination was interpreted and the report reviewed and electronically signed by: KISHA ANDRADE MD on Sep 17 2024 10:57AM EST Narrative 09/17/2024 10:59 AM EDT * * *Final Report* * * DATE OF EXAM: Sep 17 2024 9:57AM [facility] 1033 - US DOPPLER COMPLETE / PROCEDURE REASON: Liver transplant * * * * Physician Interpretation * * * * EXAMINATION: LIVER VASCULAR ULTRASOUND WITH DOPPLER IMAGING CLINICAL HISTORY: Liver transplantation 09/08/2024. Follow-up study. TECHNIQUE: Sonography of the liver with color and spectral Doppler imaging of the hepatic vasculature was performed. Images were obtained and stored in a permanent archive. MQ: USLV_1 COMPARISON: 09/16/2024 RESULT: Sonographic Findings: Pancreas: Normal sonographic appearance. Portions obscured: tail Liver: Echotexture and echogenicity: Heterogeneous with geographic region of more hypoechoic parenchyma in segment VIII/Emilie. Surface contour: Smooth Lesions: None. Biliary: No intrahepatic biliary duct dilation. CBD: 0.7 cm at the hilum. Gallbladder: Absent Right Kidney: No hydronephrosis. Spleen: Craniocaudal length 9.1 cm, normal. There are no splenic lesions. Other: Small to moderate volume ascites. Small to moderate volume ascites. Persistent heterogeneous fluid in the gallbladder fossa, likely evolving postoperative blood products. HEPATIC VASCULATURE: PORTAL SYSTEM: -Splenic Vein: Patent with antegrade flow (towards the liver). -Main PV: Patent with phasic antegrade flow (towards liver). 50 cm/sec -Right anterior PV: Patent with phasic antegrade flow (towards liver). 32 cm/sec -Right posterior PV: Patent with phasic antegrade flow (towards liver). 40 cm/sec -Left PV: Patent with phasic antegrade flow (towards liver). 18 cm/sec HEPATIC ARTERIES: - Main THIBODEAUX: Normal waveform PSV: 54 cm/sec. RI: 0.72 - Right anterior THIBODEAUX: Normal waveform PSV: 61 cm/sec. RI: 0.76 - Right posterior THIBODEAUX: Normal waveform PSV: 36 cm/sec. RI: 0.75 - Left THIBODEAUX: Normal waveform PSV: 28 cm/sec. RI: 0.79 HEPATIC VEINS: -Left: Patent with triphasic waveform. -Middle: Patent with triphasic waveform. -Right: Patent with triphasic waveform. IVC: Patent with normal, phasic wave form. Procedure Note Provider, [facility] [place] - 09/17/2024 * * *Final Report* * * DATE OF EXAM: Sep 17 2024 9:57AM U 1033 - US DOPPLER COMPLETE / PROCEDURE REASON: Liver transplant * * * * Physician Interpretation * * * * EXAMINATION: LIVER VASCULAR ULTRASOUND WITH DOPPLER IMAGING CLINICAL HISTORY: Liver transplantation 09/08/2024. Follow-up study. TECHNIQUE: Sonography of the liver with color and spectral Doppler imaging of the hepatic vasculature was performed. Images were obtained and stored in a permanent archive. MQ: USLV_1 COMPARISON: 09/16/2024 RESULT: Sonographic Findings: Pancreas: Normal sonographic appearance. Portions obscured: tail Liver: Echotexture and echogenicity: Heterogeneous with geographic region of more hypoechoic parenchyma in segment VIII/Emilie. Surface contour: Smooth Lesions: None. Biliary: No intrahepatic biliary duct dilation. CBD: 0.7 cm at the hilum. Gallbladder: Absent Right Kidney: No hydronephrosis. Spleen: Craniocaudal length 9.1 cm, normal. There are no splenic lesions. Other: Small to moderate volume ascites. Small to moderate volume ascites. Persistent heterogeneous fluid in the gallbladder fossa, likely evolving postoperative blood products. HEPATIC VASCULATURE: PORTAL SYSTEM: -Splenic Vein: Patent with antegrade flow (towards the liver). -Main PV: Patent with phasic antegrade flow (towards liver). 50 cm/sec -Right anterior PV: Patent with phasic antegrade flow (towards liver). 32 cm/sec -Right posterior PV: Patent with phasic antegrade flow (towards liver). 40 cm/sec -Left PV: Patent with phasic antegrade flow (towards liver). 18 cm/sec HEPATIC ARTERIES: - Main THIBODEAUX: Normal waveform PSV: 54 cm/sec. RI: 0.72 - Right anterior THIBODEAUX: Normal waveform PSV: 61 cm/sec. RI: 0.76 - Right posterior THIBODEAUX: Normal waveform PSV: 36 cm/sec. RI: 0.75 - Left THIBODEAUX: Normal waveform PSV: 28 cm/sec. RI: 0.79 HEPATIC VEINS: -Left: Patent with triphasic waveform. -Middle: Patent with triphasic waveform. -Right: Patent with triphasic waveform. IVC: Patent with normal, phasic wave form. IMPRESSION IMPRESSION: Patent hepatic vasculature with improved arterial waveforms compared to prior study, now normal. Small to moderate volume abdominal pelvic ascites similar to prior study. Persistent postoperative blood products in the gallbladder fossa. Stable geographic region of heterogeneity in the transplant liver which may relate to evolving operative handling changes. Telegrapher Agent: SRINI Transcribe Date/Time: Sep 17 2024 10:45A Dictated by : KISHA ANDRADE MD This examination was interpreted and the report reviewed and electronically signed by: KISHA ANDRADE MD on Sep 17 2024 10:57AM EST Bassam Banks MD -PAMA Final Result * XR CHEST 1V FRONTAL PORT (09/16/2024 4:09 PM EDT) Anatomical Region Laterality Modality Chest Radiographic Lisa ging 09/16/2024 4:09 PM EDT Impressions 09/16/2024 4:33 PM EDT IMPRESSION: See result. Telegrapher Agent: [facility] Transcribe Date/Time: Sep 16 2024 4:29P Dictated by : DOMINGO DICKINSON MD This examination was interpreted and the report reviewed and electronically signed by: DOMINGO DICKINSON MD on Sep 16 2024 4:31PM EST Narrative 09/16/2024 4:33 PM EDT * * *Final Report* * * DATE OF EXAM: Sep 16 2024 4:09PM DESIRAE [id number] - XR CHEST 1V FRONTAL PORT / PROCEDURE REASON: Pleural effusion * * * * Physician Interpretation * * * * EXAMINATION: CHEST RADIOGRAPH (PORTABLE SINGLE VIEW AP) Exam Date/Time: 09/16/2024 4:09 PM Clinical History: Pleural effusion MQ: XCPMC_6 Comparison: Same day RESULT: Lines, tubes, and devices: Right IJ catheter in place. Right basilar pleural drain. Lungs and pleura: Low lung volume. Blunted CP angles suggesting effusions, right effusion appears loculated. Right mid zone and bilateral lower zones opacities with consolidative component, likely atelectasis, associated infection or aspiration is possible in the right clinical setting. Right trace pneumothorax. Cardiomediastinal silhouette: Stable cardiomediastinal silhouette. Other: . Procedure Note Provider, [facility] [place] - 09/16/2024 * * *Final Report* * * DATE OF EXAM: Sep 16 2024 4:09PM DESIRAE [id number] - XR CHEST 1V FRONTAL PORT / PROCEDURE REASON: Pleural effusion * * * * Physician Interpretation * * * * EXAMINATION: CHEST RADIOGRAPH (PORTABLE SINGLE VIEW AP) Exam Date/Time: 09/16/2024 4:09 PM Clinical History: Pleural effusion MQ: XCPMC_6 Comparison: Same day RESULT: Lines, tubes, and devices: Right IJ catheter in place. Right basilar pleural drain. Lungs and pleura: Low lung volume. Blunted CP angles suggesting effusions, right effusion appears loculated. Right mid zone and bilateral lower zones opacities with consolidative component, likely atelectasis, associated infection or aspiration is possible in the right clinical setting. Right trace pneumothorax. Cardiomediastinal silhouette: Stable cardiomediastinal silhouette. Other: . IMPRESSION IMPRESSION: See result. Telegrapher Agent: [facility] Transcribe Date/Time: Sep 16 2024 4:29P Dictated by : DOMINGO DICKINSON MD This examination was interpreted and the report reviewed and electronically signed by: DOMINGO DICKINSON MD on Sep 16 2024 4:31PM EST Bassam Banks MD RAD-PAMA Final Result * XR CHEST 1V FRONTAL PORT (09/16/2024 1:01 PM EDT) Anatomical Region Laterality Modality Chest Radiographic Lisa ging 09/16/2024 12:2 5 PM EDT Impressions 09/16/2024 1:01 PM EDT IMPRESSION: See result. Telegrapher Agent: [facility] Transcribe Date/Time: Sep 16 2024 12:57P Dictated by : CAROLYN ALARCON MD This examination was interpreted and the report reviewed and electronically signed by: CAROLYN ALARCON MD on Sep 16 2024 12:58PM EST Narrative 09/16/2024 1:01 PM EDT * * *Final Report* * * DATE OF EXAM: Sep 16 2024 12:25PM DESIRAE 5376 - XR CHEST 1V FRONTAL PORT / PROCEDURE REASON: Pleural effusion * * * * Physician Interpretation * * * * EXAMINATION: CHEST RADIOGRAPH (SINGLE VIEW AP OR PA) CLINICAL HISTORY: MQ: XC1_5 Comparison: 09/15/2024 RESULT: Lines, tubes, and devices: Right IJ catheter in distal SVC. Stable right pleural pigtail catheter. Lungs and pleura: Blunted bilateral pleural effusions with adjacent atelectasis. Mild pulmonary edema. No pneumothorax. Cardiomediastinal silhouette: Stable cardiomediastinal silhouette. Other: . Procedure Note Provider, [facility] [place] - 09/16/2024 * * *Final Report* * * DATE OF EXAM: Sep 16 2024 12:25PM DESIRAE 5376 - XR CHEST 1V FRONTAL PORT / PROCEDURE REASON: Pleural effusion * * * * Physician Interpretation * * * * EXAMINATION: CHEST RADIOGRAPH (SINGLE VIEW AP OR PA) CLINICAL HISTORY: MQ: XC1_5 Comparison: 09/15/2024 RESULT: Lines, tubes, and devices: Right IJ catheter in distal SVC. Stable right pleural pigtail catheter. Lungs and pleura: Blunted bilateral pleural effusions with adjacent atelectasis. Mild pulmonary edema. No pneumothorax. Cardiomediastinal silhouette: Stable cardiomediastinal silhouette. Other: . IMPRESSION IMPRESSION: See result. Telegrapher Agent: SRINI Transcribe Date/Time: Sep 16 2024 12:57P Dictated by : CAROLYN ALARCON MD This examination was interpreted and the report reviewed and electronically signed by: CAROLYN ALARCON MD on Sep 16 2024 12:58PM EST us Bassam Banks MD RAD-PAMA Final Result * (ABNORMAL) SODIUM/NA (09/16/2024 12:16 PM EDT) Only the most recent of38 resultswithin the time period is included. Sodium 131(L) 136 - 144 mmol/L 09/16/2024 1:12 PM EDT [facility] Blood BLOOD SPECIMEN / Unknown Venipuncture / Unknown 09/16/2024 12:16 PM EDT 09/16/2024 12:40 PM EDT us Kelsi Hidalgo MD LABORATORY Final Resul t [facility] [address] [address], [place] * US ABD LIVER VASCULAR (09/16/2024 10:53 AM EDT) Anatomical Region Laterality Modality Abdomen Ultrasound 09/16/2024 10:3 0 AM EDT Impressions 09/16/2024 1:21 PM EDT IMPRESSION: Patent hepatic vasculature with appropriately directed flow. Persistent elevated resistive index of the left hepatic artery and improved resistive indices of the main hepatic artery and right arterial branches. Stable heterogeneous appearance of the mid to upper right hepatic lobe. Telegrapher Agent: SRINI Transcribe Date/Time: Sep 16 2024 1:15P Dictated by : YOU MAZARIEGOS MD This examination was interpreted and the report reviewed and electronically signed by: YOU MAZARIEGOS MD on Sep 16 2024 1:19PM EST Narrative 09/16/2024 1:21 PM EDT * * *Final Report* * * DATE OF EXAM: Sep 16 2024 10:30AM U 1233 - US ABD LIVER VASCULAR / PROCEDURE REASON: Liver transplant * * * * Physician Interpretation * * * * EXAMINATION: LIVER VASCULAR ULTRASOUND WITH DOPPLER IMAGING CLINICAL HISTORY: Liver transplant 09/09/2024. TECHNIQUE: Sonography of the liver with color and spectral Doppler imaging of the hepatic vasculature was performed. Images were obtained and stored in a permanent archive. MQ: USLV_1 COMPARISON: Ultrasound 09/15/2024 RESULT: Sonographic Findings: Pancreas: Normal sonographic appearance. Portions obscured: tail Liver: Echotexture: Heterogeneous mildly hypoechoic ill-defined area at the mid to upper right hepatic lobe, similar to prior. Echogenicity: Normal Surface contour: Smooth Lesions: None. Biliary: No intrahepatic biliary duct dilation. CBD: 0.4 cm at the hilum. Gallbladder: Absent Right Kidney: No hydronephrosis. Spleen: Craniocaudal length 8.7 cm, normal. There are no splenic lesions. Other: - Moderate volume ascites mostly in the lower abdomen/pelvis. - Stable 6.4 x 2.3 x 3.1 cm collection at the gallbladder fossa. HEPATIC VASCULATURE: PORTAL SYSTEM: -Splenic Vein: Patent with antegrade flow (towards the liver). -Main PV: Patent with phasic antegrade flow (towards liver). 56 cm/sec -Right anterior PV: Patent with phasic antegrade flow (towards liver). 35 cm/sec -Right posterior PV: Patent with phasic antegrade flow (towards liver). 41 cm/sec -Left PV: Patent with phasic antegrade flow (towards liver). 26 cm/sec HEPATIC ARTERIES: - Main THIBODEAUX: Normal waveform PSV: 61-122 cm/sec. RI: 0.76 - Right anterior THIBODEAUX: Normal waveform PSV: 96 cm/sec. RI: 0.72 - Right posterior THIBODEAUX: Normal waveform PSV: 46 cm/sec. RI: 0.67 - Left THIBODEAUX: Normal waveform PSV: 26-29 cm/sec. RI: 0.69-1.0 HEPATIC VEINS: -Left: Patent with phasic waveform. -Middle: Patent with phasic waveform. -Right: Patent with phasic waveform. IVC: Patent with normal, phasic wave form Procedure Note Provider, [facility] [place] - 09/16/2024 * * *Final Report* * * DATE OF EXAM: Sep 16 2024 10:30AM U 1233 - US ABD LIVER VASCULAR / PROCEDURE REASON: Liver transplant * * * * Physician Interpretation * * * * EXAMINATION: LIVER VASCULAR ULTRASOUND WITH DOPPLER IMAGING CLINICAL HISTORY: Liver transplant 09/09/2024. TECHNIQUE: Sonography of the liver with color and spectral Doppler imaging of the hepatic vasculature was performed. Images were obtained and stored in a permanent archive. MQ: USLV_1 COMPARISON: Ultrasound 09/15/2024 RESULT: Sonographic Findings: Pancreas: Normal sonographic appearance. Portions obscured: tail Liver: Echotexture: Heterogeneous mildly hypoechoic ill-defined area at the mid to upper right hepatic lobe, similar to prior. Echogenicity: Normal Surface contour: Smooth Lesions: None. Biliary: No intrahepatic biliary duct dilation. CBD: 0.4 cm at the hilum. Gallbladder: Absent Right Kidney: No hydronephrosis. Spleen: Craniocaudal length 8.7 cm, normal. There are no splenic lesions. Other: - Moderate volume ascites mostly in the lower abdomen/pelvis. - Stable 6.4 x 2.3 x 3.1 cm collection at the gallbladder fossa. HEPATIC VASCULATURE: PORTAL SYSTEM: -Splenic Vein: Patent with antegrade flow (towards the liver). -Main PV: Patent with phasic antegrade flow (towards liver). 56 cm/sec -Right anterior PV: Patent with phasic antegrade flow (towards liver). 35 cm/sec -Right posterior PV: Patent with phasic antegrade flow (towards liver). 41 cm/sec -Left PV: Patent with phasic antegrade flow (towards liver). 26 cm/sec HEPATIC ARTERIES: - Main THIBODEAUX: Normal waveform PSV: 61-122 cm/sec. RI: 0.76 - Right anterior THIBODEAUX: Normal waveform PSV: 96 cm/sec. RI: 0.72 - Right posterior THIBODEAUX: Normal waveform PSV: 46 cm/sec. RI: 0.67 - Left THIBODEAUX: Normal waveform PSV: 26-29 cm/sec. RI: 0.69-1.0 HEPATIC VEINS: -Left: Patent with phasic waveform. -Middle: Patent with phasic waveform. -Right: Patent with phasic waveform. IVC: Patent with normal, phasic wave form IMPRESSION IMPRESSION: Patent hepatic vasculature with appropriately directed flow. Persistent elevated resistive index of the left hepatic artery and improved resistive indices of the main hepatic artery and right arterialbranches. Stable heterogeneous appearance of the mid to upper right hepatic lobe. Telegrapher Agent: [facility] Transcribe Date/Time: Sep 16 2024 1:15P Dictated by : YOU MAZARIEGOS MD This examination was interpreted and the report reviewed and electronically signed by: YOU MAZARIEGOS MD on Sep 16 2024 1:19PM EST us Kelsi Hidalgo MD US-PAMA Final Resul t * US DOPPLER COMPLETE (09/16/2024 10:53 AM EDT) Anatomical Region Laterality Modality Ultrasound 09/16/2024 10:5 3 AM EDT Impressions 09/16/2024 1:21 PM EDT IMPRESSION: Patent hepatic vasculature with appropriately directed flow. Persistent elevated resistive index of the left hepatic artery and improved resistive indices of the main hepatic artery and right arterial branches. Stable heterogeneous appearance of the mid to upper right hepatic lobe. Telegrapher Agent: [facility] Transcribe Date/Time: Sep 16 2024 1:15P Dictated by : YOU MAZARIEGOS MD This examination was interpreted and the report reviewed and electronically signed by: YOU MAZARIEGOS MD on Sep 16 2024 1:19PM EST Narrative 09/16/2024 1:21 PM EDT * * *Final Report* * * DATE OF EXAM: Sep 16 2024 10:53AM [facility] 1033 - US DOPPLER COMPLETE / PROCEDURE REASON: Liver transplant * * * * Physician Interpretation * * * * EXAMINATION: LIVER VASCULAR ULTRASOUND WITH DOPPLER IMAGING CLINICAL HISTORY: Liver transplant 09/09/2024. TECHNIQUE: Sonography of the liver with color and spectral Doppler imaging of the hepatic vasculature was performed. Images were obtained and stored in a permanent archive. MQ: USLV_1 COMPARISON: Ultrasound 09/15/2024 RESULT: Sonographic Findings: Pancreas: Normal sonographic appearance. Portions obscured: tail Liver: Echotexture: Heterogeneous mildly hypoechoic ill-defined area at the mid to upper right hepatic lobe, similar to prior. Echogenicity: Normal Surface contour: Smooth Lesions: None. Biliary: No intrahepatic biliary duct dilation. CBD: 0.4 cm at the hilum. Gallbladder: Absent Right Kidney: No hydronephrosis. Spleen: Craniocaudal length 8.7 cm, normal. There are no splenic lesions. Other: - Moderate volume ascites mostly in the lower abdomen/pelvis. - Stable 6.4 x 2.3 x 3.1 cm collection at the gallbladder fossa. HEPATIC VASCULATURE: PORTAL SYSTEM: -Splenic Vein: Patent with antegrade flow (towards the liver). -Main PV: Patent with phasic antegrade flow (towards liver). 56 cm/sec -Right anterior PV: Patent with phasic antegrade flow (towards liver). 35 cm/sec -Right posterior PV: Patent with phasic antegrade flow (towards liver). 41 cm/sec -Left PV: Patent with phasic antegrade flow (towards liver). 26 cm/sec HEPATIC ARTERIES: - Main THIBODEAUX: Normal waveform PSV: 61-122 cm/sec. RI: 0.76 - Right anterior THIBODEAUX: Normal waveform PSV: 96 cm/sec. RI: 0.72 - Right posterior THIBODEAUX: Normal waveform PSV: 46 cm/sec. RI: 0.67 - Left THIBODEAUX: Normal waveform PSV: 26-29 cm/sec. RI: 0.69-1.0 HEPATIC VEINS: -Left: Patent with phasic waveform. -Middle: Patent with phasic waveform. -Right: Patent with phasic waveform. IVC: Patent with normal, phasic wave form Procedure Note Provider, [facility] [place] - 09/16/2024 * * *Final Report* * * DATE OF EXAM: Sep 16 2024 10:53AM U 1033 - US DOPPLER COMPLETE / PROCEDURE REASON: Liver transplant * * * * Physician Interpretation * * * * EXAMINATION: LIVER VASCULAR ULTRASOUND WITH DOPPLER IMAGING CLINICAL HISTORY: Liver transplant 09/09/2024. TECHNIQUE: Sonography of the liver with color and spectral Doppler imaging of the hepatic vasculature was performed. Images were obtained and stored in a permanent archive. MQ: USLV_1 COMPARISON: Ultrasound 09/15/2024 RESULT: Sonographic Findings: Pancreas: Normal sonographic appearance. Portions obscured: tail Liver: Echotexture: Heterogeneous mildly hypoechoic ill-defined area at the mid to upper right hepatic lobe, similar to prior. Echogenicity: Normal Surface contour: Smooth Lesions: None. Biliary: No intrahepatic biliary duct dilation. CBD: 0.4 cm at the hilum. Gallbladder: Absent Right Kidney: No hydronephrosis. Spleen: Craniocaudal length 8.7 cm, normal. There are no splenic lesions. Other: - Moderate volume ascites mostly in the lower abdomen/pelvis. - Stable 6.4 x 2.3 x 3.1 cm collection at the gallbladder fossa. HEPATIC VASCULATURE: PORTAL SYSTEM: -Splenic Vein: Patent with antegrade flow (towards the liver). -Main PV: Patent with phasic antegrade flow (towards liver). 56 cm/sec -Right anterior PV: Patent with phasic antegrade flow (towards liver). 35 cm/sec -Right posterior PV: Patent with phasic antegrade flow (towards liver). 41 cm/sec -Left PV: Patent with phasic antegrade flow (towards liver). 26 cm/sec HEPATIC ARTERIES: - Main THIBODEAUX: Normal waveform PSV: 61-122 cm/sec. RI: 0.76 - Right anterior THIBODEAUX: Normal waveform PSV: 96 cm/sec. RI: 0.72 - Right posterior THIBODEAUX: Normal waveform PSV: 46 cm/sec. RI: 0.67 - Left THIBODEAUX: Normal waveform PSV: 26-29 cm/sec. RI: 0.69-1.0 HEPATIC VEINS: -Left: Patent with phasic waveform. -Middle: Patent with phasic waveform. -Right: Patent with phasic waveform. IVC: Patent with normal, phasic wave form IMPRESSION IMPRESSION: Patent hepatic vasculature with appropriately directed flow. Persistent elevated resistive index of the left hepatic artery and improved resistive indices of the main hepatic artery and right arterialbranches. Stable heterogeneous appearance of the mid to upper right hepatic lobe. Telegrapher Agent: SRINI Transcribe Date/Time: Sep 16 2024 1:15P Dictated by : YOU MAZARIEGOS MD This examination was interpreted and the report reviewed and electronically signed by: YOU MAZARIEGOS MD on Sep 16 2024 1:19PM EST Kelsi Hidalgo MD US-PAMA Final Resul t * (ABNORMAL) ACTIVATED PARTIAL THROMBOPLASTIN TIME (09/15/2024 11:57 PM EDT) Only the most recent of10 resultswithin the time period is included. APTT 45.8(H) 23.0 - 32.4 sec 09/16/2024 12:47 AM EDT [facility] Blood BLOOD SPECIMEN / Unknown Venipuncture / Unknown 09/15/2024 11:57 PM EDT 09/16/2024 12:23 AM EDT Narrative [facility] - 09/16/2024 12:47 AM EDT Unfractionated Heparin Therapeutic Ranges: Standard Heparin Nomogram: 53 to 78 seconds (anti-Xa level of 0.3 to 0.7 U/ml) Low Dose/ACS Nomogram: 49 to 67 seconds (anti-Xa level of 0.2 to 0.5 U/ml) Stroke Treatment Nomogram: 49 to 67 seconds (anti-Xa level of 0.2 to 0.5 U/ml) Note: The APTT therapeutic range has been determined for the current lot of laboratory APTT reagent in use throughout the [facility]. Jaylin Daly MD LABORATORY Final Resul t [facility] [address] [address], [place] * US DOPPLER COMPLETE (09/15/2024 5:22 PM EDT) Anatomical Region Laterality Modality Ultrasound 09/15/2024 5:10 PM EDT Impressions 09/15/2024 5:59 PM EDT IMPRESSION: Patent hepatic vasculature with appropriately directed flow. Persistent hepatic arterial elevated resistive indices, mildly improved in the right posterior hepatic artery, and again nonspecific in the early postoperative period. Stable geographic heterogeneity along the hepatic dome. Otherwise, normal sonographic appearance of the transplant liver. Stable gallbladder fossa postoperative collection and small volume ascites. 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 Images were obtained and stored in a permanent archive. MQ: USLV_1 COMPARISON: 09/14/2024 RESULT: Sonographic Findings: Pancreas: Normal sonographic appearance. Portions obscured: tail Liver: Echotexture: Normal, homogeneous. Echogenicity: Normal Surface contour: Smooth Lesions: Redemonstrated heterogeneous area in the hepatic dome. Biliary: No intrahepatic biliary duct dilation. CBD: 0.7 cm at the hilum. Gallbladder: Cholecystectomy Right Kidney: No hydronephrosis. Spleen: Poorly visualized. Other: -6.2 x 2.6 x 3.0 cm postoperative collection in the gallbladder fossa, similar to prior -Small volume ascites. -Right pleural effusion. HEPATIC VASCULATURE: PORTAL SYSTEM: -Splenic Vein: Patent with antegrade flow (towards the liver). -Main PV: Patent with phasic antegrade flow (towards liver). 66 cm/sec -Right anterior PV: Patent with phasic antegrade flow (towards liver). 27 cm/sec -Right posterior PV: Patent with phasic antegrade flow (towards liver). 41 cm/sec -Left PV: Patent with phasic antegrade flow (towards liver). 20 cm/sec HEPATIC ARTERIES: - Main THIBODEAUX: High resistance wave form PSV: 33 cm/sec. RI: 1.0, previously 1.0 - Right anterior THIBODEAUX: High resistance wave form PSV: 34 cm/sec. RI: 1.0, previously 1.0 - Right posterior THIBODEAUX: Borderline high resistance wave form PSV: 81 cm/sec. RI: 0.86, previously 1.0 - Left THIBODEAUX: High resistance wave form PSV: 44 cm/sec. RI: 1.0, previously 1.0 HEPATIC VEINS: -Left: Patent with triphasic waveform. -Middle: Patent with triphasic waveform. -Right: Patent with triphasic waveform. IVC: Patent with normal, phasic wave form. 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 Images were obtained and stored in a permanent archive. MQ: USLV_1 COMPARISON: 09/14/2024 RESULT: Sonographic Findings: Pancreas: Normal sonographic appearance. Portions obscured: tail Liver: Echotexture: Normal, homogeneous. Echogenicity: Normal Surface contour: Smooth Lesions: Redemonstrated heterogeneous area in the hepatic dome. Biliary: No intrahepatic biliary duct dilation. CBD: 0.7 cm at the hilum. Gallbladder: Cholecystectomy Right Kidney: No hydronephrosis. Spleen: Poorly visualized. Other: -6.2 x 2.6 x 3.0 cm postoperative collection in the gallbladder fossa, similar to prior -Small volume ascites. -Right pleural effusion. HEPATIC VASCULATURE: PORTAL SYSTEM: -Splenic Vein: Patent with antegrade flow (towards the liver). -Main PV: Patent with phasic antegrade flow (towards liver). 66 cm/sec -Right anterior PV: Patent with phasic antegrade flow (towards liver). 27 cm/sec -Right posterior PV: Patent with phasic antegrade flow (towards liver). 41 cm/sec -Left PV: Patent with phasic antegrade flow (towards liver). 20 cm/sec HEPATIC ARTERIES: - Main THIBODEAUX: High resistance wave form PSV: 33 cm/sec. RI: 1.0, previously 1.0 - Right anterior THIBODEAUX: High resistance wave form PSV: 34 cm/sec. RI: 1.0, previously 1.0 - Right posterior THIBODEAUX: Borderline high resistance wave form PSV: 81 cm/sec. RI: 0.86, previously 1.0 - Left THIBODEAUX: High resistance wave form PSV: 44 cm/sec. RI: 1.0, previously 1.0 HEPATIC VEINS: -Left: Patent with triphasic waveform. -Middle: Patent with triphasic waveform. -Right: Patent with triphasic waveform. IVC: Patent with normal, phasic wave form. IMPRESSION IMPRESSION: Patent hepatic vasculature with appropriately directed flow. Persistent hepatic arterial elevated resistive indices, mildly improved in the right posterior hepatic artery, and again nonspecific in the early postoperative period. Stable geographic heterogeneity along the hepatic dome. Otherwise, normal sonographic appearance of the transplant liver. Stable gallbladder fossa postoperative collection and small volume ascites. Telegrapher Agent: [facility] Transcribe Date/Time: Sep 15 2024 5:41P Dictated by : LEIDY ECHEVERRIA MD This examination was interpreted and the report reviewed and electronically signed by: AUTUMN CORRALES MD on Sep 15 2024 5:57PM EST us Kelsi Hidalgo MD US-PAMA Final Resul t * US ABD LIVER VASCULAR (09/15/2024 5:21 PM EDT) Anatomical Region Laterality Modality Abdomen Ultrasound 09/15/2024 4:50 PM EDT Impressions 09/15/2024 5:59 PM EDT IMPRESSION: Patent hepatic vasculature with appropriately directed flow. Persistent hepatic arterial elevated resistive indices, mildly improved in the right posterior hepatic artery, and again nonspecific in the early postoperative period. Stable geographic heterogeneity along the hepatic dome. Otherwise, normal sonographic appearance of the transplant liver. Stable gallbladder fossa postoperative collection and small volume ascites. 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 Images were obtained and stored in a permanent archive. MQ: USLV_1 COMPARISON: 09/14/2024 RESULT: Sonographic Findings: Pancreas: Normal sonographic appearance. Portions obscured: tail Liver: Echotexture: Normal, homogeneous. Echogenicity: Normal Surface contour: Smooth Lesions: Redemonstrated heterogeneous area in the hepatic dome. Biliary: No intrahepatic biliary duct dilation. CBD: 0.7 cm at the hilum. Gallbladder: Cholecystectomy Right Kidney: No hydronephrosis. Spleen: Poorly visualized. Other: -6.2 x 2.6 x 3.0 cm postoperative collection in the gallbladder fossa, similar to prior -Small volume ascites. -Right pleural effusion. HEPATIC VASCULATURE: PORTAL SYSTEM: -Splenic Vein: Patent with antegrade flow (towards the liver). -Main PV: Patent with phasic antegrade flow (towards liver). 66 cm/sec -Right anterior PV: Patent with phasic antegrade flow (towards liver). 27 cm/sec -Right posterior PV: Patent with phasic antegrade flow (towards liver). 41 cm/sec -Left PV: Patent with phasic antegrade flow (towards liver). 20 cm/sec HEPATIC ARTERIES: - Main THIBODEAUX: High resistance wave form PSV: 33 cm/sec. RI: 1.0, previously 1.0 - Right anterior THIBODEAUX: High resistance wave form PSV: 34 cm/sec. RI: 1.0, previously 1.0 - Right posterior THIBODEAUX: Borderline high resistance wave form PSV: 81 cm/sec. RI: 0.86, previously 1.0 - Left THIBODEAUX: High resistance wave form PSV: 44 cm/sec. RI: 1.0, previously 1.0 HEPATIC VEINS: -Left: Patent with triphasic waveform. -Middle: Patent with triphasic waveform. -Right: Patent with triphasic waveform. IVC: Patent with normal, phasic wave form. Procedure Note Provider, [facility] [place] - 09/15/2024 * * *Final Report* * * DATE OF EXAM: Sep 15 2024 4:50PM U 1233 - US ABD LIVER VASCULAR [...] in a permanent archive. MQ: USLV_1 COMPARISON: 09/14/2024 RESULT: Sonographic Findings: Pancreas: Normal sonographic appearance. Portions obscured: tail Liver: Echotexture: Normal, homogeneous. Echogenicity: Normal Surface contour: Smooth Lesions: Redemonstrated heterogeneous area in the hepatic dome. Biliary: No intrahepatic biliary duct dilation. CBD: 0.7 cm at the hilum. Gallbladder: Cholecystectomy Right Kidney: No hydronephrosis. Spleen: Poorly visualized. Other: -6.2 x 2.6 x 3.0 cm postoperative collection in the gallbladder fossa, similar to prior -Small volume ascites. -Right pleural effusion. HEPATIC VASCULATURE: PORTAL SYSTEM: -Splenic Vein: Patent with antegrade flow (towards the liver). -Main PV: Patent with phasic antegrade flow (towards liver). 66 cm/sec -Right anterior PV: Patent with phasic antegrade flow (towards liver). 27 cm/sec -Right posterior PV: Patent with phasic antegrade flow (towards liver). 41 cm/sec -Left PV: Patent with phasic antegrade flow (towards liver). 20 cm/sec HEPATIC ARTERIES: - Main THIBODEAUX: High resistance wave form PSV: 33 cm/sec. RI: 1.0, previously 1.0 - Right anterior THIBODEAUX: High resistance wave form PSV: 34 cm/sec. RI: 1.0, previously 1.0 - Right posterior THIBODEUAX: Borderline high resistance wave form PSV: 81 cm/sec. RI: 0.86, previously 1.0 - Left THIBODEAUX: High resistance wave form PSV: 44 cm/sec. RI: 1.0, previously 1.0 HEPATIC VEINS: -Left: Patent with triphasic waveform. -Middle: Patent with triphasic waveform. -Right: Patent with triphasic waveform. IVC: Patent with normal, phasic wave form. IMPRESSION IMPRESSION: Patent hepatic vasculature with appropriately directed flow. Persistent hepatic arterial elevated resistive indices, mildly improved in the right posterior hepatic artery, and again nonspecific in the early postoperative period. Stable geographic heterogeneity along the hepatic dome. Otherwise, normal sonographic appearance of the transplant liver. Stable gallbladder fossa postoperative collection and small volume ascites. Telegrapher Agent: SRINI Transcribe Date/Time: Sep 15 2024 5:41P Dictated by : LEIDY ECHEVERRIA MD This examination was interpreted and the report reviewed and electronically signed by: AUTUMN CORRALES MD on Sep 15 2024 5:57PM EST Kelsi Hidalgo MD -PAMA Final Resul t * (ABNORMAL) VENOUS BLOOD GASES (09/15/2024 4:23 PM EDT) Only the most recent of14 resultswithin the time period is included. pH, Venous 7.37 7.32 - 7.42 09/15/2024 4:28 PM EDT [facility] pCO2, Venous 42 42 - 55 mmHg 09/15/2024 4:28 PM EDT [facility] pO2, Venous 38 35 - 45 mmHg 09/15/2024 4:28 PM EDT [facility] O2 Saturation, Venous 67 60 - 85 % 09/15/2024 4:28 PM EDT [facility] Base Deficit, Venous -1 -2 - 0 mmol/L 09/15/2024 4:28 PM EDT [facility] Bicarbonate, Venous 24 24 - 28 mmol/L 09/15/2024 4:28 PM EDT [facility] Oxyhemoglobin, Venous 65 60 - 85 % 09/15/2024 4:28 PM EDT [facility] Carboxyhemoglo bin, Venous 1.8 0.0 - 2.0 % 09/15/2024 4:28 PM EDT [facility] Comment:Carboxyhemoglobin Re ference Range for Smokers: 2.0-8.0% Methemoglobin, Venous 0.9 0.0 - 1.5 % 09/15/2024 4:28 PM EDT [facility] Sodium, Whole Blood 129(L) 136 - 144 mmol/L 09/15/2024 4:28 PM EDT [facility] Potassium, Whole Blood 3.9 3.5 - 5.0 mmol/L 09/15/2024 4:28 PM EDT [facility] Calcium Ionized, Whole Blood 1.15 1.08 - 1.30 mmol/L 09/15/2024 4:28 PM EDT [facility] Calcium Ionized, pH corrected 1.13 1.08 - 1.30 mmol/L 09/15/2024 4:28 PM EDT [facility] Glucose, Whole Blood 200(H) 60 - 105 mg/dL 09/15/2024 4:28 PM EDT [facility] Lactate 2.1 0.5 - 2.2 mmol/L 09/15/2024 4:28 PM EDT [facility] Hemoglobin, Whole Blood 8.8(L) 13.0 - 17.0 g/dL 09/15/2024 4:28 PM EDT [facility] Hematocrit, Whole Blood 27.3(L) 39.0 - 51.0 % 09/15/2024 4:28 PM EDT [facility] Temperature, Body 37.0 C 09/15/2024 4:28 PM EDT [facility] O2 Therapy RA=Room Air 09/15/2024 4:28 PM EDT [facility] Blood, Venous BLOOD SPECIMEN / Unknown Central Line / Unknown 09/15/2024 4:23 PM EDT 09/15/2024 4:26 PM EDT us Jaylin Daly MD BLOOD GASES Final Resul t [facility] [address] [address], [place] * XR CHEST 1V FRONTAL PORT (09/15/2024 12:27 PM EDT) Anatomical Region Laterality Modality Chest Radiographic Lisa ging 09/15/2024 12:2 7 PM EDT Impressions 09/15/2024 2:07 PM EDT IMPRESSION: See result. Telegrapher Agent: SRINI Transcribe Date/Time: Sep 15 2024 2:00P Dictated by : RUPA COVINGTON MD This examination was interpreted and the report reviewed and electronically signed by: RUPA COVINGTON MD on Sep 15 2024 2:05PM EST Narrative 09/15/2024 2:07 PM EDT * * *Final Report* * * DATE OF EXAM: Sep 15 2024 12:27PM [facility] [id number] - XR CHEST 1V FRONTAL PORT / PROCEDURE REASON: Pleural effusion * * * * Physician Interpretation * * * * EXAMINATION: CHEST RADIOGRAPH (PORTABLE SINGLE VIEW AP) Exam Date/Time: 09/15/2024 12:27 PM Clinical History: Pleural effusion MQ: XCPMC_6 Comparison: 2 days prior RESULT: Lines, tubes, and devices: Right IJ CVC and right pleural pigtail drain are unchanged.. Lungs and pleura: Interval decrease in a small to medium right pleural effusion with improved atelectasis of the right mid lung zones. Stable right basilar atelectasis. Interval mild increase in volume or redistribution of a layering small to medium left pleural effusion and worsening atelectasis of the adjacent left lung base. Superimposed pneumonia/aspiration in both lung bases cannot be excluded. No pneumothorax. Cardiomediastinal silhouette: Stable cardiomediastinal silhouette. Other: . Procedure Note Provider, [facility] [place] - 09/15/2024 * * *Final Report* * * DATE OF EXAM: Sep 15 2024 12:27PM [facility] [id number] - XR CHEST 1V FRONTAL PORT / PROCEDURE REASON: Pleural effusion * * * * Physician Interpretation * * * * EXAMINATION: CHEST RADIOGRAPH (PORTABLE SINGLE VIEW AP) Exam Date/Time: 09/15/2024 12:27 PM Clinical History: Pleural effusion MQ: XCPMC_6 Comparison: 2 days prior RESULT: Lines, tubes, and devices: Right IJ CVC and right pleural pigtail drain are unchanged.. Lungs and pleura: Interval decrease in a small to medium right pleural effusion with improved atelectasis of the right mid lung zones. Stable right basilar atelectasis. Interval mild increase in volume or redistribution of a layering small to medium left pleural effusion and worsening atelectasis of the adjacent left lung base. Superimposed pneumonia/aspiration in both lung bases cannot be excluded. No pneumothorax. Cardiomediastinal silhouette: Stable cardiomediastinal silhouette. Other: . IMPRESSION IMPRESSION: See result. Telegrapher Agent: SRINI Transcribe Date/Time: Sep 15 2024 2:00P Dictated by : RUPA COVINGTON MD This examination was interpreted and the report reviewed and electronically signed by: RUPA COVINGTON MD on Sep 15 2024 2:05PM EST Bharat TEJADA Final Result * SODIUM RANDOM URINE (09/14/2024 10:59 AM EDT) Only the most recent of9 resultswithin the time period is included. Sodium, Urine Random 32 14 - 216 mmol/L 09/14/2024 12:11 PM EDT [facility] Urine URINE SPECIMEN / Unknown Non Blood / Unknown 09/14/2024 10:59 AM EDT 09/14/2024 11:11 AM EDT us Ronen Victor MD LABORATORY Final Result Performing Organization Address [facility] Co de Phone Number [facility] [address] [id number], [place] * OSMOLALITY URINE (09/14/2024 10:59 AM EDT) Only the most recent of7 resultswithin the time period is included. Osmolality, Urine 454 50 - 1,200 mOsm/kg 09/14/2024 12:20 PM EDT [facility] Urine URINE SPECIMEN / Unknown Non Blood / Unknown 09/14/2024 10:59 AM EDT 09/14/2024 11:11 AM EDT us Ronen Victor MD LABORATORY Final Result Performing Organization Address City/[facility] Co de Phone Number [facility] [address] [address], [place] * US ABD LIVER VASCULAR (09/14/2024 10:48 AM EDT) Anatomical Region Laterality Modality Abdomen Ultrasound 09/14/2024 10:4 8 AM EDT Impressions 09/14/2024 2:27 PM EDT IMPRESSION: Elevated resistive indices throughout the hepatic arteries with diastolic reversal main hepatic artery. This is nonspecific and may be transient in the early postoperative period. Otherwise, patent hepatic vasculature with appropriately directed flow. Attention on follow-up. Stable geographic hypoechoic area in the right hepatic dome, possibly representing edema or contusion. 6.5 x 3.2 x 3.2 cm gallbladder fossa postoperative collection. Small ascites. Small volume ascites. Telegrapher Agent: SRINI Transcribe Date/Time: Sep 14 2024 12:02P Dictated by : LEIDY ECHEVERRIA MD This examination was interpreted and the report reviewed and electronically signed by: SAMUEL BELTRAN MD on Sep 14 2024 2:25PM EST Narrative 09/14/2024 2:27 PM EDT * * *Final Report* * * DATE OF EXAM: Sep 14 2024 10:48AM U 1233 - US ABD LIVER VASCULAR [...] in a permanent archive. MQ: USLV_1 COMPARISON: 09/11/2024 RESULT: Sonographic Findings: Pancreas: Normal sonographic appearance. Portions obscured: tail Liver: Echotexture: Normal, homogeneous. Echogenicity: Similar geographic hypoechoic area in the right dome Surface contour: Smooth Lesions: None. Biliary: No intrahepatic biliary duct dilation. CBD: 0.5 cm at the hilum. Gallbladder: Prior cholecystectomy Right Kidney: No hydronephrosis. Spleen: Craniocaudal length 8.5 cm, normal. There are no splenic lesions. Other: -Small volume abdominal ascites. -Right pleural effusion. -6.5 x 3.2 x 3.2 cm postoperative collection in the gallbladder fossa. HEPATIC VASCULATURE: PORTAL SYSTEM: -Splenic Vein: Patent with antegrade flow (towards the liver). -Main PV: Patent with phasic antegrade flow (towards liver). 66 cm/sec -Right anterior PV: Patent with phasic antegrade flow (towards liver). 30 cm/sec -Right posterior PV: Patent with phasic antegrade flow (towards liver). 36 cm/sec -Left PV: Patent with phasic antegrade flow (towards liver). 26 cm/sec HEPATIC ARTERIES: - Main THIBODEAUX: High resistance wave form PSV: 46 cm/sec. RI: 1.0, diastolic reversal - Right anterior THIBODEAUX: High resistance wave form PSV: 33 cm/sec. RI: 1.0 - Right posterior THIBODEUAX: High resistance wave form PSV: 37 cm/sec. RI: 1.0 - Left THIBODEAUX: High resistance wave form PSV: 36 cm/sec. RI: 1.0 HEPATIC VEINS: -Left: Patent with triphasic waveform. -Middle: Dampened monophasic waveform. -Right: Dampened monophasic waveform. IVC: Patent with normal, phasic wave form. Procedure Note Provider, [facility] [place] - 09/14/2024 * * *Final Report* * * DATE OF EXAM: Sep 14 2024 10:48AM U 1233 - US ABD LIVER VASCULAR [...] in a permanent archive. MQ: USLV_1 COMPARISON: 09/11/2024 RESULT: Sonographic Findings: Pancreas: Normal sonographic appearance. Portions obscured: tail Liver: Echotexture: Normal, homogeneous. Echogenicity: Similar geographic hypoechoic area in the right dome Surface contour: Smooth Lesions: None. Biliary: No intrahepatic biliary duct dilation. CBD: 0.5 cm at the hilum. Gallbladder: Prior cholecystectomy Right Kidney: No hydronephrosis. Spleen: Craniocaudal length 8.5 cm, normal. There are no splenic lesions. Other: -Small volume abdominal ascites. -Right pleural effusion. -6.5 x 3.2 x 3.2 cm postoperative collection in the gallbladder fossa. HEPATIC VASCULATURE: PORTAL SYSTEM: -Splenic Vein: Patent with antegrade flow (towards the liver). -Main PV: Patent with phasic antegrade flow (towards liver). 66 cm/sec -Right anterior PV: Patent with phasic antegrade flow (towards liver). 30 cm/sec -Right posterior PV: Patent with phasic antegrade flow (towards liver). 36 cm/sec -Left PV: Patent with phasic antegrade flow (towards liver). 26 cm/sec HEPATIC ARTERIES: - Main THIBODEAUX: High resistance wave form PSV: 46 cm/sec. RI: 1.0, diastolic reversal - Right anterior THIBODEAUX: High resistance wave form PSV: 33 cm/sec. RI: 1.0 - Right posterior THIBODEAUX: High resistance wave form PSV: 37 cm/sec. RI: 1.0 - Left THIBODEAUX: High resistance wave form PSV: 36 cm/sec. RI: 1.0 HEPATIC VEINS: -Left: Patent with triphasic waveform. -Middle: Dampened monophasic waveform. -Right: Dampened monophasic waveform. IVC: Patent with normal, phasic wave form. IMPRESSION IMPRESSION: Elevated resistive indices throughout the hepatic arteries with diastolic reversal main hepatic artery. This is nonspecific and may be transient in the early postoperative period. Otherwise, patent hepatic vasculature with appropriately directed flow. Attention on follow-up. Stable geographic hypoechoic area in the right hepatic dome, possibly representing edema or contusion. 6.5 x 3.2 x 3.2 cm gallbladder fossa postoperative collection. Small ascites. Small volume ascites. Telegrapher Agent: [facility] Transcribe Date/Time: Sep 14 2024 12:02P Dictated by : LEIDY ECHEVERRIA MD This examination was interpreted and the report reviewed and electronically signed by: SAMUEL BELTRAN MD on Sep 14 2024 2:25PM EST us Kelsi Hidalgo MD US-PAMA Final Resul t * US DOPPLER COMPLETE (09/14/2024 10:48 AM EDT) Anatomical Region Laterality Modality Ultrasound 09/14/2024 10:4 8 AM EDT Impressions 09/14/2024 2:27 PM EDT IMPRESSION: Elevated resistive indices throughout the hepatic arteries with diastolic reversal main hepatic artery. This is nonspecific and may be transient in the early postoperative period. Otherwise, patent hepatic vasculature with appropriately directed flow. Attention on follow-up. Stable geographic hypoechoic area in the right hepatic dome, possibly representing edema or contusion. 6.5 x 3.2 x 3.2 cm gallbladder fossa postoperative collection. Small ascites. Small volume ascites. 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 Images were obtained and stored in a permanent archive. MQ: USLV_1 COMPARISON: 09/11/2024 RESULT: Sonographic Findings: Pancreas: Normal sonographic appearance. Portions obscured: tail Liver: Echotexture: Normal, homogeneous. Echogenicity: Similar geographic hypoechoic area in the right dome Surface contour: Smooth Lesions: None. Biliary: No intrahepatic biliary duct dilation. CBD: 0.5 cm at the hilum. Gallbladder: Prior cholecystectomy Right Kidney: No hydronephrosis. Spleen: Craniocaudal length 8.5 cm, normal. There are no splenic lesions. Other: -Small volume abdominal ascites. -Right pleural effusion. -6.5 x 3.2 x 3.2 cm postoperative collection in the gallbladder fossa. HEPATIC VASCULATURE: PORTAL SYSTEM: -Splenic Vein: Patent with antegrade flow (towards the liver). -Main PV: Patent with phasic antegrade flow (towards liver). 66 cm/sec -Right anterior PV: Patent with phasic antegrade flow (towards liver). 30 cm/sec -Right posterior PV: Patent with phasic antegrade flow (towards liver). 36 cm/sec -Left PV: Patent with phasic antegrade flow (towards liver). 26 cm/sec HEPATIC ARTERIES: - Main THIBODEAUX: High resistance wave form PSV: 46 cm/sec. RI: 1.0, diastolic reversal - Right anterior THIBODEAUX: High resistance wave form PSV: 33 cm/sec. RI: 1.0 - Right posterior THIBODEAUX: High resistance wave form PSV: 37 cm/sec. RI: 1.0 - Left THIBODEAUX: High resistance wave form PSV: 36 cm/sec. RI: 1.0 HEPATIC VEINS: -Left: Patent with triphasic waveform. -Middle: Dampened monophasic waveform. -Right: Dampened monophasic waveform. IVC: Patent with normal, phasic wave form. 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 Images were obtained and stored in a permanent archive. MQ: USLV_1 COMPARISON: 09/11/2024 RESULT: Sonographic Findings: Pancreas: Normal sonographic appearance. Portions obscured: tail Liver: Echotexture: Normal, homogeneous. Echogenicity: Similar geographic hypoechoic area in the right dome Surface contour: Smooth Lesions: None. Biliary: No intrahepatic biliary duct dilation. CBD: 0.5 cm at the hilum. Gallbladder: Prior cholecystectomy Right Kidney: No hydronephrosis. Spleen: Craniocaudal length 8.5 cm, normal. There are no splenic lesions. Other: -Small volume abdominal ascites. -Right pleural effusion. -6.5 x 3.2 x 3.2 cm postoperative collection in the gallbladder fossa. HEPATIC VASCULATURE: PORTAL SYSTEM: -Splenic Vein: Patent with antegrade flow (towards the liver). -Main PV: Patent with phasic antegrade flow (towards liver). 66 cm/sec -Right anterior PV: Patent with phasic antegrade flow (towards liver). 30 cm/sec -Right posterior PV: Patent with phasic antegrade flow (towards liver). 36 cm/sec -Left PV: Patent with phasic antegrade flow (towards liver). 26 cm/sec HEPATIC ARTERIES: - Main THIBODEAUX: High resistance wave form PSV: 46 cm/sec. RI: 1.0, diastolic reversal - Right anterior THIBODEAUX: High resistance wave form PSV: 33 cm/sec. RI: 1.0 - Right posterior THIBODEAUX: High resistance wave form PSV: 37 cm/sec. RI: 1.0 - Left THIBODEAUX: High resistance wave form PSV: 36 cm/sec. RI: 1.0 HEPATIC VEINS: -Left: Patent with triphasic waveform. -Middle: Dampened monophasic waveform. -Right: Dampened monophasic waveform. IVC: Patent with normal, phasic wave form. IMPRESSION IMPRESSION: Elevated resistive indices throughout the hepatic arteries with diastolic reversal main hepatic artery. This is nonspecific and may be transient in the early postoperative period. Otherwise, patent hepatic vasculature with appropriately directed flow. Attention on follow-up. Stable geographic hypoechoic area in the right hepatic dome, possibly representing edema or contusion. 6.5 x 3.2 x 3.2 cm gallbladder fossa postoperative collection. Small ascites. Small volume ascites. Telegrapher Agent: [facility] Transcribe Date/Time: Sep 14 2024 12:02P Dictated by : LEIDY ECHEVERRIA MD This examination was interpreted and the report reviewed and electronically signed by: SAMUEL BELTRAN MD on Sep 14 2024 2:25PM EST us Kelsi Hidalgo MD US-PAMA Final Resul t * US ARM VEIN DVT UNL VAS LAB (09/14/2024 7:51 AM EDT) 09/14/2024 7:[address] [facility] - 09/14/2024 11:20 AM EDT Non-Invasive Vascular Laboratory [facility] Portable Upper Extremity Venous Duplex Unilateral - Right Date of service/time: 09/14/2024 7:51:32 AM Name: MR. CHARLES BLANDON Date: 1955 Age: 69 years Gender: M Clinical Indication Upper extremity swelling. TECHNIQUE -------- A venous duplex ultrasound examination was performed, including grayscale imaging with compression maneuvers and color Doppler and spectral Doppler examination with augmentation maneuvers and response to respiration of the below mentioned veins. FINDINGS -------- RIGHT SIDE Internal jugular vein Doppler: normal flow. Compression: normal. Subclavian vein Doppler: normal flow. Compression: normal. Axillary vein Doppler: normal flow. Compression: normal. Brachial vein Doppler: normal flow. Compression: normal. Basilic vein Compression: normal. Cephalic vein Compression: normal. LEFT SIDE Subclavian vein Doppler: normal flow. IMPRESSION RIGHT SIDE - DEEP VEINS Negative for acute deep vein thrombosis. Only segments visualized of the internal jugular vein, due to line and bandage. LEFT SIDE - DEEP VEINS Spontaneous and respirophasic flow noted in the subclavian vein. Technologist: Mark Davis T Ordering physician: KELSI HIDALGO Interpreting physician: Curtis Burnett MD, RPVI Final See Link below for Image Kelsi Hidalgo MD VASCULAR LAB Final Resul t Performing Organization Address [facility] Co de Phone Number [facility] [address] [place] [address] * CLOSTRIDIUM DIFFICILE TOXIN BY PCR (09/14/2024 5:26 AM EDT) C. difficile PCR Negative for C. difficile toxin by PCR Negative for C. difficile toxin by PCR [employer] COVID19 09/14/2024 9:24 AM EDT [facility] Stool STOOL SPECIMEN / Unknown Non Blood / Unknown 09/14/2024 5:26 AM EDT 09/14/2024 8:00 AM EDT Bharat Hager DO LABORATORY Final Result Performing Organization Address [facility] de Phone Number [facility] [address] [place], [place] [id number], [place] * POTASSIUM RANDOM URINE (09/13/2024 12:42 PM EDT) Only the most recent of2 resultswithin the time period is included. Potassium, Urine Random 52.7 10.0 - 160.0 mmol/L 09/13/2024 6:06 PM EDT [facility] Urine URINE SPECIMEN / Unknown Non Blood / Unknown 09/13/2024 12:42 PM EDT 09/13/2024 12:54 PM EDT Kelsi Hidalgo MD LABORATORY Final Resul t Performing Organization Address City/[facility] Co de Phone Number [facility] [address] [place] [address], [place] [address], * XR CHEST 1V FRONTAL PORT (09/12/2024 4:46 PM EDT) Anatomical Region Laterality Modality Chest Radiographic Lisa ging 09/12/2024 4:46 PM EDT Impressions 09/12/2024 4:49 PM EDT IMPRESSION: See result Telegrapher Agent: [facility] Transcribe Date/Time: Sep 12 2024 4:47P Dictated by : PAWAN LUNA MD This examination was interpreted and the report reviewed and electronically signed by: PAWAN LUNA MD on Sep 12 2024 4:47PM EST Narrative 09/12/2024 4:49 PM EDT * * *Final Report* * * DATE OF EXAM: Sep 12 2024 4:46PM DESIRAE [id number] - XR CHEST 1V FRONTAL PORT / PROCEDURE REASON: Evaluate tube, line, or lead position * * * * Physician Interpretation * * * * EXAMINATION: CHEST RADIOGRAPH (PORTABLE SINGLE VIEW AP) Exam Date/Time: 09/12/2024 4:46 PM Clinical History: Evaluate tube, line, or lead position MQ: XCPMC_6 Comparison: Same day RESULT: Lines, tubes, and devices: Interval placement of a right-sided percutaneous pigtail drainage catheter. RIGHT IJ CVC remains in place. Lungs and pleura: Interval decrease in size of a previously identified large RIGHT pleural effusion, partially loculated moderate size on the current exam with improvement of adjacent atelectasis/consolidation. Small LEFT pleural effusion and adjacent atelectasis/consolidation is unchanged. No substantial pneumothorax is identified. Cardiomediastinal silhouette: The cardiomediastinal silhouette is stable since the prior exam. There are atherosclerotic calcifications in the aortic arch. Other: Procedure Note Provider, [facility] [place] - 09/12/2024 * * *Final Report* * * DATE OF EXAM: Sep 12 2024 4:46PM DESIRAE 5376 - XR CHEST 1V FRONTAL PORT / PROCEDURE REASON: Evaluate tube, line, or lead position * * * * Physician Interpretation * * * * EXAMINATION: CHEST RADIOGRAPH (PORTABLE SINGLE VIEW AP) Exam Date/Time: 09/12/2024 4:46 PM Clinical History: Evaluate tube, line, or lead position MQ: XCPMC_6 Comparison: Same day RESULT: Lines, tubes, and devices: Interval placement of a right-sided percutaneous pigtail drainage catheter. RIGHT IJ CVC remains in place. Lungs and pleura: Interval decrease in size of a previously identified large RIGHT pleural effusion, partially loculated moderate size on the current exam with improvement of adjacent atelectasis/consolidation. Small LEFT pleural effusion and adjacent atelectasis/consolidation is unchanged. No substantial pneumothorax is identified. Cardiomediastinal silhouette: The cardiomediastinal silhouette is stable since the prior exam. There are atherosclerotic calcifications in the aortic arch. Other: IMPRESSION IMPRESSION: See result Telegrapher Agent: [facility] Transcribe Date/Time: Sep 12 2024 4:47P Dictated by : PAWAN LUNA MD This examination was interpreted and the report reviewed and electronically signed by: PAWAN LUNA MD on Sep 12 2024 4:47PM EST Bharat Hager DO RAD-PAMA Final Result * PERQ DRAINAGE PLEURA INSERT CATH W/O IMAGING, PERQ DRAINAGE PLEURA INSERT CATH W/O IMAGING (09/12/2024 4:14 PM EDT) Narrative Steff Kramer MD - 09/12/2024 4:14 PM EDT Steff Kramer MD 09/12/2024 4:44 PM CHEST TUBE Date/Start Time: 09/12/2024 3:35 PM Date/Stop Time: 09/12/2024 4:05 PM Performed by: Bharat Hager DO Authorized by: Steff Kramer MD Where was Patient When this Procedure was Performed: Bedside/Unscheduled Procedure Room This procedure has been performed in part by a resident/fellow under attending's direction Informed Consent Consent Obtained: Written [place] Protocol A moment to CARE was completed. SIGN IN Sign in communication not applicable due to emergent procedure. Personnel directly involved with the procedure wore the appropriate PPE. Special Equipment: N/A Patient/Surrogate Stated/Verified: Patient name, Date of , Relevant allergies and Intended procedure TIME OUT Relevant labs, photos, and/or imaging studies have been reviewed. Intended patient and procedure match source documents. Consent obtained and matches the intended procedure. No correct side/site applicable for marking and visibility. Medications required for procedure verified. No fire risk assessment and interventions applicable. Implant(s) inserted. Correct implant(s) confirmed including size and side and Expiration date(s) reviewed. Pre-Procedure Details: The area was prepped with chlorhexidine (Chloroprep) and allowed to dry. A sterile partial body drape was applied following the usual aseptic technique. Medications: Local Anesthesia (see MAR): Lidocaine 1% Procedure Details: Indication: pleural effusion Chest Tube Type: Pigtail Catheter Location: right Intercostal Space: 10th Position: lateral Insertion site: pleural space Imaging Guidance Used: Yes, image not captured Chest Tube Number: 1 A 14 Fr chest tube was inserted into the cavity to cm depth. Technique: Percutaneous/modified Seldinger A scalpel was used to make a incision at the intercostal space. An introducer needle was inserted into the pleural space with fluid returned. A J-tipped guidewire was inserted into the pleural space through the needle. The needle was removed over the guidewire, dilator was advanced over the guidewire. A pigtail catheter was inserted over the guidewire into the pleural space. The guidewire was removed from the pleural space leaving the pigtail catheter in place Placement in the pleural space was confirmed by chest x-ray, ultrasound and fluid removal. The tube was secured with sterile sutures A Tegaderm dressing was placed around the tube. The tube was connected to water seal Drainage: kaylie fluid Post-insertion x-ray findings: Pending Number of attempts: 1 Successful Placement: Yes Post-Procedure Details: Estimated Blood Loss: scant Specimens Sent: none SIGN OUT No specimen collected. All instruments, equipment, possible retained foreign bodies accounted for. Steff Kramer MD PROCEDURE Final Result * XR CHEST 1V FRONTAL PORT (09/12/2024 1:36 PM EDT) Anatomical Region Laterality Modality Chest Radiographic Lisa ging 09/12/2024 11:5 7 AM EDT Impressions 09/12/2024 1:46 PM EDT IMPRESSION: See result. Telegrapher Agent: [facility] Transcribe Date/Time: Sep 12 2024 1:43P Dictated by : BULMARO WINN MD This examination was interpreted and the report reviewed and electronically signed by: BULMARO WINN MD on Sep 12 2024 1:44PM EST Narrative 09/12/2024 1:46 PM EDT * * *Final Report* * * DATE OF EXAM: Sep 12 2024 11:57AM DESIRAE [id number] - XR CHEST 1V FRONTAL PORT / PROCEDURE REASON: Post-operative/post-procedure assessment * * * * Physician Interpretation * * * * EXAMINATION: CHEST RADIOGRAPH (PORTABLE SINGLE VIEW AP) Exam Date/Time: 09/12/2024 11:57 AM Clinical History: Post-operative/post-procedure assessment MQ: XCPMC_6 Comparison: 1 day prior RESULT: Lines, tubes, and devices: Right IJ venous catheter terminates in the right atrium. Lungs and pleura: Moderate to large right pleural effusion is noted, which may have redistributed since prior exam. Small left pleural effusion is also noted. There is central pulmonary venous congestion without overt edema. Patchy opacities are noted at the lung bases, likely related to atelectasis. Cardiomediastinal silhouette: Stable cardiomediastinal silhouette. Calcification of the aortic arch is noted. Other: . Procedure Note Provider, [facility] [place] - 09/12/2024 * * *Final Report* * * DATE OF EXAM: Sep 12 2024 11:57AM DESIRAE [id number] - XR CHEST 1V FRONTAL PORT / PROCEDURE REASON: Post-operative/post-procedure assessment * * * * Physician Interpretation * * * * EXAMINATION: CHEST RADIOGRAPH (PORTABLE SINGLE VIEW AP) Exam Date/Time: 09/12/2024 11:57 AM Clinical History: Post-operative/post-procedure assessment MQ: XCPMC_6 Comparison: 1 day prior RESULT: Lines, tubes, and devices: Right IJ venous catheter terminates in the right atrium. Lungs and pleura: Moderate to large right pleural effusion is noted, which may have redistributed since prior exam. Small left pleural effusion is also noted. There is central pulmonary venous congestion without overt edema. Patchy opacities are noted at the lung bases, likely related to atelectasis. Cardiomediastinal silhouette: Stable cardiomediastinal silhouette. Calcification of the aortic arch is noted. Other: . IMPRESSION IMPRESSION: See result. Telegrapher Agent: [facility] Transcribe Date/Time: Sep 12 2024 1:43P Dictated by : BULMARO WINN MD This examination was interpreted and the report reviewed and electronically signed by: BULMARO WINN MD on Sep 12 2024 1:44PM EST Kelsi Hidalgo MD RAD-PAMA Final Resul t * OSMOLALITY (09/12/2024 6:47 AM EDT) Only the most recent of3 resultswithin the time period is included. Osmolality 298 275 - 300 mOsm/kg 09/12/2024 7:48 AM EDT [facility] Blood BLOOD SPECIMEN / Unknown Venipuncture / Unknown 09/12/2024 6:47 AM EDT 09/12/2024 6:59 AM EDT Kelsi Hidalgo MD LABORATORY Final Resul t [facility] [address] [address], [place] * US ABD LIVER VASCULAR TRANSPLANT ([facility]) (09/11/2024 10:22 AM EDT) Anatomical Region Laterality Modality Abdomen Ultrasound 09/11/2024 8:35 AM EDT Impressions 09/11/2024 12:57 PM EDT IMPRESSION: Patent hepatic vasculature with appropriately directed flow. Improved resistive indices in the left hepatic artery and anterior right hepatic artery. Persistent elevated resistive indices of the main hepatic artery and the posterior right hepatic artery Stable heterogeneous mildly hypoechoic area in the right hepatic lobe. Telegrapher Agent: [facility] Transcribe Date/Time: Sep 11 2024 10:35A Dictated by : YOU MAZARIEGOS MD This examination was interpreted and the report reviewed and electronically signed by: YOU MAZARIEGOS MD on Sep 11 2024 12:55PM EST Narrative 09/11/2024 12:57 PM EDT * * *Final Report* * * DATE OF EXAM: Sep 11 2024 8:35AM [facility] 0685 - US ABD LIVER VASCULAR TRANSPLANT / PROCEDURE REASON: Liver transplant * * * * Physician Interpretation * * * * EXAMINATION: LIVER VASCULAR ULTRASOUND WITH DOPPLER IMAGING CLINICAL HISTORY: Liver transplant 09/09/2024. TECHNIQUE: Sonography of the liver with color and spectral Doppler imaging of the hepatic vasculature was performed. Images were obtained and stored in a permanent archive. MQ: USLV_1 COMPARISON: Ultrasound 09/10/2024 RESULT: Sonographic Findings: Pancreas: Normal sonographic appearance. Portions obscured: tail Liver: Echotexture: Normal, homogeneous. Echogenicity: Heterogeneous mildly hypoechoic area in the right hepatic lobe is without significant change, possibly postoperative. Surface contour: Smooth Lesions: None. Biliary: No intrahepatic biliary duct dilation. CBD: 0.6 cm at the hilum. Gallbladder: Absent Right Kidney: No hydronephrosis. Spleen: Craniocaudal length 9.2 cm, normal. There are no splenic lesions. Other: Small volume ascites. Gallbladder fossa collection measures 6.0 x 1.9 x 2.8 cm. Right pleural effusion. HEPATIC VASCULATURE: PORTAL SYSTEM: -Splenic Vein: Patent with antegrade flow (towards the liver). -Main PV: Patent with phasic antegrade flow (towards liver). 58-98 cm/sec -Right anterior PV: Patent with phasic antegrade flow (towards liver). 49 cm/sec -Right posterior PV: Patent with phasic antegrade flow (towards liver). 50 cm/sec -Left PV: Patent with phasic antegrade flow (towards liver). 22 cm/sec HEPATIC ARTERIES: - Main THIBODEAUX: High resistance wave form PSV: 48-58 cm/sec. RI: 1.0 - Right anterior THIBODEAUX: Normal waveform PSV: 33-42 cm/sec. RI: 0.79-0.87 - Right posterior THIBODEAUX: High resistance wave form PSV: 40-43 cm/sec. RI: 1.0 - Left THIBODEAUX: Normal waveform PSV: cm/sec. RI: 0.73-0.87 HEPATIC VEINS: -Left: Patent with phasic waveform. -Middle: Patent with phasic waveform. -Right: Patent with phasic waveform. IVC: Patent with normal, phasic wave form. Procedure Note Provider, [facility] [place] - 09/11/2024 * * *Final Report* * * DATE OF EXAM: Sep 11 2024 8:35AM [facility] 0685 - US ABD LIVER VASCULAR TRANSPLANT / PROCEDURE REASON: Liver transplant * * * * Physician Interpretation * * * * EXAMINATION: LIVER VASCULAR ULTRASOUND WITH DOPPLER IMAGING CLINICAL HISTORY: Liver transplant 09/09/2024. TECHNIQUE: Sonography of the liver with color and spectral Doppler imaging of the hepatic vasculature was performed. Images were obtained and stored in a permanent archive. MQ: USLV_1 COMPARISON: Ultrasound 09/10/2024 RESULT: Sonographic Findings: Pancreas: Normal sonographic appearance. Portions obscured: tail Liver: Echotexture: Normal, homogeneous. Echogenicity: Heterogeneous mildly hypoechoic area in the right hepatic lobe is without significant change, possibly postoperative. Surface contour: Smooth Lesions: None. Biliary: No intrahepatic biliary duct dilation. CBD: 0.6 cm at the hilum. Gallbladder: Absent Right Kidney: No hydronephrosis. Spleen: Craniocaudal length 9.2 cm, normal. There are no splenic lesions. Other: Small volume ascites. Gallbladder fossa collection measures 6.0 x 1.9 x 2.8 cm. Right pleural effusion. HEPATIC VASCULATURE: PORTAL SYSTEM: -Splenic Vein: Patent with antegrade flow (towards the liver). -Main PV: Patent with phasic antegrade flow (towards liver). 58-98 cm/sec -Right anterior PV: Patent with phasic antegrade flow (towards liver). 49 cm/sec -Right posterior PV: Patent with phasic antegrade flow (towards liver). 50 cm/sec -Left PV: Patent with phasic antegrade flow (towards liver). 22 cm/sec HEPATIC ARTERIES: - Main THIBODEAUX: High resistance wave form PSV: 48-58 cm/sec. RI: 1.0 - Right anterior THIBODEAUX: Normal waveform PSV: 33-42 cm/sec. RI: 0.79-0.87 - Right posterior THIBODEAUX: High resistance wave form PSV: 40-43 cm/sec. RI: 1.0 - Left THIBODEAUX: Normal waveform PSV: cm/sec. RI: 0.73-0.87 HEPATIC VEINS: -Left: Patent with phasic waveform. -Middle: Patent with phasic waveform. -Right: Patent with phasic waveform. IVC: Patent with normal, phasic wave form. IMPRESSION IMPRESSION: Patent hepatic vasculature with appropriately directed flow. Improved resistive indices in the left hepatic artery and anterior right hepatic artery. Persistent elevated resistive indices of the main hepatic artery and the posterior right hepatic artery Stable heterogeneous mildly hypoechoic area in the right hepatic lobe. Telegrapher Agent: [facility] Transcribe Date/Time: Sep 11 2024 10:35A Dictated by : YOU MAZARIEGOS MD This examination was interpreted and the report reviewed and electronically signed by: YOU MAZARIEGOS MD on Sep 11 2024 12:55PM EST us Kelsi Hidalgo MD US-PAMA Final Resul t * US DOPPLER COMPLETE (09/11/2024 10:22 AM EDT) Anatomical Region Laterality Modality Ultrasound 09/11/2024 8:57 AM EDT Impressions 09/11/2024 12:57 PM EDT IMPRESSION: Patent hepatic vasculature with appropriately directed flow. Improved resistive indices in the left hepatic artery and anterior right hepatic artery. Persistent elevated resistive indices of the main hepatic artery and the posterior right hepatic artery Stable heterogeneous mildly hypoechoic area in the right hepatic lobe. Telegrapher Agent: [facility] Transcribe Date/Time: Sep 11 2024 10:35A Dictated by : YOU MAZARIEGOS MD This examination was interpreted and the report reviewed and electronically signed by: YOU MAZARIEGOS MD on Sep 11 2024 12:55PM EST Narrative 09/11/2024 12:57 PM EDT * * *Final Report* * * DATE OF EXAM: Sep 11 2024 8:57AM [facility] 1033 - US DOPPLER COMPLETE / PROCEDURE REASON: Liver transplant * * * * Physician Interpretation * * * * EXAMINATION: LIVER VASCULAR ULTRASOUND WITH DOPPLER IMAGING CLINICAL HISTORY: Liver transplant 09/09/2024. TECHNIQUE: Sonography of the liver with color and spectral Doppler imaging of the hepatic vasculature was performed. Images were obtained and stored in a permanent archive. MQ: USLV_1 COMPARISON: Ultrasound 09/10/2024 RESULT: Sonographic Findings: Pancreas: Normal sonographic appearance. Portions obscured: tail Liver: Echotexture: Normal, homogeneous. Echogenicity: Heterogeneous mildly hypoechoic area in the right hepatic lobe is without significant change, possibly postoperative. Surface contour: Smooth Lesions: None. Biliary: No intrahepatic biliary duct dilation. CBD: 0.6 cm at the hilum. Gallbladder: Absent Right Kidney: No hydronephrosis. Spleen: Craniocaudal length 9.2 cm, normal. There are no splenic lesions. Other: Small volume ascites. Gallbladder fossa collection measures 6.0 x 1.9 x 2.8 cm. Right pleural effusion. HEPATIC VASCULATURE: PORTAL SYSTEM: -Splenic Vein: Patent with antegrade flow (towards the liver). -Main PV: Patent with phasic antegrade flow (towards liver). 58-98 cm/sec -Right anterior PV: Patent with phasic antegrade flow (towards liver). 49 cm/sec -Right posterior PV: Patent with phasic antegrade flow (towards liver). 50 cm/sec -Left PV: Patent with phasic antegrade flow (towards liver). 22 cm/sec HEPATIC ARTERIES: - Main THIBODEAUX: High resistance wave form PSV: 48-58 cm/sec. RI: 1.0 - Right anterior THIBODEAUX: Normal waveform PSV: 33-42 cm/sec. RI: 0.79-0.87 - Right posterior THIBODEAUX: High resistance wave form PSV: 40-43 cm/sec. RI: 1.0 - Left THIBODEAUX: Normal waveform PSV: cm/sec. RI: 0.73-0.87 HEPATIC VEINS: -Left: Patent with phasic waveform. -Middle: Patent with phasic waveform. -Right: Patent with phasic waveform. IVC: Patent with normal, phasic wave form. Procedure Note Provider, [facility] - 09/11/2024 * * *Final Report* * * DATE OF EXAM: Sep 11 2024 8:57AM U 1033 - US DOPPLER COMPLETE / PROCEDURE REASON: Liver transplant * * * * Physician Interpretation * * * * EXAMINATION: LIVER VASCULAR ULTRASOUND WITH DOPPLER IMAGING CLINICAL HISTORY: Liver transplant 09/09/2024. TECHNIQUE: Sonography of the liver with color and spectral Doppler imaging of the hepatic vasculature was performed. Images were obtained and stored in a permanent archive. MQ: USLV_1 COMPARISON: Ultrasound 09/10/2024 RESULT: Sonographic Findings: Pancreas: Normal sonographic appearance. Portions obscured: tail Liver: Echotexture: Normal, homogeneous. Echogenicity: Heterogeneous mildly hypoechoic area in the right hepatic lobe is without significant change, possibly postoperative. Surface contour: Smooth Lesions: None. Biliary: No intrahepatic biliary duct dilation. CBD: 0.6 cm at the hilum. Gallbladder: Absent Right Kidney: No hydronephrosis. Spleen: Craniocaudal length 9.2 cm, normal. There are no splenic lesions. Other: Small volume ascites. Gallbladder fossa collection measures 6.0 x 1.9 x 2.8 cm. Right pleural effusion. HEPATIC VASCULATURE: PORTAL SYSTEM: -Splenic Vein: Patent with antegrade flow (towards the liver). -Main PV: Patent with phasic antegrade flow (towards liver). 58-98 cm/sec -Right anterior PV: Patent with phasic antegrade flow (towards liver). 49 cm/sec -Right posterior PV: Patent with phasic antegrade flow (towards liver). 50 cm/sec -Left PV: Patent with phasic antegrade flow (towards liver). 22 cm/sec HEPATIC ARTERIES: - Main THIBODEAUX: High resistance wave form PSV: 48-58 cm/sec. RI: 1.0 - Right anterior THIBODEAUX: Normal waveform PSV: 33-42 cm/sec. RI: 0.79-0.87 - Right posterior THIBODEAUX: High resistance wave form PSV: 40-43 cm/sec. RI: 1.0 - Left THIBODEAUX: Normal waveform PSV: cm/sec. RI: 0.73-0.87 HEPATIC VEINS: -Left: Patent with phasic waveform. -Middle: Patent with phasic waveform. -Right: Patent with phasic waveform. IVC: Patent with normal, phasic wave form. IMPRESSION IMPRESSION: Patent hepatic vasculature with appropriately directed flow. Improved resistive indices in the left hepatic artery and anterior right hepatic artery. Persistent elevated resistive indices of the main hepatic artery and the posterior right hepatic artery Stable heterogeneous mildly hypoechoic area in the right hepatic lobe. Telegrapher Agent: [facility] Transcribe Date/Time: Sep 11 2024 10:35A Dictated by : YOU MAZARIEGOS MD This examination was interpreted and the report reviewed and electronically signed by: YOU MAZARIEGOS MD on Sep 11 2024 12:55PM EST us Kelsi Hidalgo MD -PAMA Final Resul t * (ABNORMAL) ARTERIAL BLOOD GASES (09/10/2024 5:18 PM EDT) Only the most recent of4 resultswithin the time period is included. pH, Arterial 7.46(H) 7.35 - 7.45 09/10/2024 5:25 PM [facility] pH, Temp Corrected, Arterial 7.47(H) 7.35 - 7.45 09/10/2024 5:25 PM [facility] pCO2, Arterial 41 36 - 46 mm Hg 09/10/2024 5:25 PM [facility] pCO2, Temp Corrected, Arterial 40 36 - 46 mmHg 09/10/2024 5:25 PM [facility] pO2, Arterial 101(H) 85 - 95 mm Hg 09/10/2024 5:25 PM [facility] pO2, Temp Corrected, Arterial 99(H) 85 - 95 mmHg 09/10/2024 5:25 PM [facility] Bicarbonate, Arterial 29(H) 22 - 26 mmol/L 09/10/2024 5:25 PM [facility] O2 Saturation, Arterial 99(H) 95 - 98 % 09/10/2024 5:25 PM [facility] Base Excess, Arterial 5(H) 0 - 2 mmol/L 09/10/2024 5:25 PM [facility] Oxyhemoglobin, Arterial 95 95 - 98 % 09/10/2024 5:25 PM [facility] Carboxyhemoglo bin, Arterial 2.5(H) 0.0 - 2.0 % 09/10/2024 5:25 PM [facility] Comment:Carboxyhemoglobin Re ference Range for Smokers: 2.0-8.0% Methemoglobin, Arterial 1.1 0.0 - 1.5 % 09/10/2024 5:25 PM [facility] Sodium, Whole Blood 132(L) 136 - 144 mmol/L 09/10/2024 5:25 PM [facility] Potassium, Whole Blood 4.0 3.5 - 5.0 mmol/L 09/10/2024 5:25 PM [facility] Calcium Ionized, Whole Blood 1.15 1.08 - 1.30 mmol/L 09/10/2024 5:25 PM [facility] Calcium Ionized, pH corrected 1.18 1.08 - 1.30 mmol/L 09/10/2024 5:25 PM EDT [facility] Glucose, Whole Blood 199(H) 60 - 105 mg/dL 09/10/2024 5:25 PM EDT [facility] Lactate 1.8 0.5 - 2.2 mmol/L 09/10/2024 5:25 PM EDT [facility] Hemoglobin, Whole Blood 10.7(L) 13.0 - 17.0 g/dL 09/10/2024 5:25 PM EDT [facility] Hematocrit, Whole Blood 33.0(L) 39.0 - 51.0 % 09/10/2024 5:25 PM EDT [facility] Temperature, Body 36.6 C 09/10/2024 5:25 PM EDT [facility] Liters 1 Liters/mi n 09/10/2024 5:25 PM EDT [facility] O2 Therapy NC = Nasal Cannula 09/10/2024 5:25 PM EDT [facility] Blood, Arterial BLOOD SPECIMEN / Unknown 09/10/2024 5:18 PM EDT 09/10/2024 5:23 PM EDT us Jaylin Daly MD BLOOD GASES Final Resul t [facility] [address] [id number], * XR CHEST 1V FRONTAL PORT (09/10/2024 12:15 PM EDT) Anatomical Region Laterality Modality Chest Radiographic Lisa ging 09/10/2024 9:45 AM EDT Impressions 09/10/2024 2:27 PM EDT IMPRESSION: See result. Telegrapher Agent: [facility] Transcribe Date/Time: Sep 10 2024 2:23P Dictated by : DOIMNGO DICKINSON MD This examination was interpreted and the report reviewed and electronically signed by: DOMINGO DICKINSON MD on Sep 10 2024 2:25PM EST Narrative 09/10/2024 2:27 PM EDT * * *Final Report* * * DATE OF EXAM: Sep 10 2024 9:45AM [facility] [id number] - XR CHEST 1V FRONTAL PORT / PROCEDURE REASON: Shortness of breath * * * * Physician Interpretation * * * * EXAMINATION: CHEST RADIOGRAPH (PORTABLE SINGLE VIEW AP) Exam Date/Time: 09/10/2024 9:45 AM Clinical History: Shortness of breath MQ: XCPMC_6 Comparison: 1 day prior RESULT: Lines, tubes, and devices: Endotracheal tube tip overlying intrathoracic trachea. NG tube extends below diaphragm. PA catheter tip overlying pulmonary trunk. Right IJ catheter in place. Lungs and pleura: Medium to large right effusion with right mid and lower zone opacity/atelectasis. Left retrocardiac opacity/atelectasis. Associated infection or aspiration is possible in the right clinical setting. Cardiomediastinal silhouette: Stable Other: . Procedure Note Provider, [facility] - 09/10/2024 * * *Final Report* * * DATE OF EXAM: Sep 10 2024 9:45AM [facility] [id number] - XR CHEST 1V FRONTAL PORT / PROCEDURE REASON: Shortness of breath * * * * Physician Interpretation * * * * EXAMINATION: CHEST RADIOGRAPH (PORTABLE SINGLE VIEW AP) Exam Date/Time: 09/10/2024 9:45 AM Clinical History: Shortness of breath MQ: XCPMC_6 Comparison: 1 day prior RESULT: Lines, tubes, and devices: Endotracheal tube tip overlying intrathoracic trachea. NG tube extends below diaphragm. PA catheter tip overlying pulmonary trunk. Right IJ catheter in place. Lungs and pleura: Medium to large right effusion with right mid and lower zone opacity/atelectasis. Left retrocardiac opacity/atelectasis. Associated infection or aspiration is possible in the right clinical setting. Cardiomediastinal silhouette: Stable Other: . IMPRESSION IMPRESSION: See result. Telegrapher Agent: [facility] Transcribe Date/Time: Sep 10 2024 2:23P Dictated by : DOMINGO DICKINSON MD This examination was interpreted and the report reviewed and electronically signed by: DOMINGO DICKINSON MD on Sep 10 2024 2:25PM EST us Jaylin CHU-PAMDebby Final Resul t * US DOPPLER COMPLETE (09/10/2024 10:27 AM EDT) Anatomical Region Laterality Modality Ultrasound 09/10/2024 9:35 AM EDT Impressions 09/10/2024 2:29 PM EDT IMPRESSION: PATENT HEPATIC VASCULATURE WITH APPROPRIATELY DIRECTED FLOW. PERSISTENTLY ELEVATED ARTERIAL RESISTIVE INDICES. ATTENTION ON FOLLOW-UP. CENTRAL HETEROGENEITY IN THE RIGHT HEPATIC LOBE MAY BE RELATED TO POSTOPERATIVE EDEMA. OTHERWISE, NORMAL SONOGRAPHIC APPEARANCE OF THE TRANSPLANT LIVER. Telegrapher Agent: [facility] Transcribe Date/Time: Sep 10 2024 2:16P Dictated by : ESTEFANY ADAMS MD This examination was interpreted and the report reviewed and electronically signed by: ESTEFANY ADAMS MD on Sep 10 2024 2:27PM EST Narrative 09/10/2024 2:29 PM EDT * * *Final Report* * * DATE OF EXAM: Sep 10 2024 9:35AM [facility] 1033 - US DOPPLER COMPLETE / PROCEDURE REASON: Liver transplant * * * * Physician Interpretation * * * * EXAMINATION: LIVER VASCULAR ULTRASOUND WITH DOPPLER IMAGING CLINICAL HISTORY: 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 Images were obtained and stored in a permanent archive. MQ: USLV_1 COMPARISON: 09/09/2024 RESULT: Sonographic Findings: Pancreas: Normal sonographic appearance. Portions obscured: tail Liver: Irregular, heterogeneous hypoechoic region in the right hepatic lobe is similar in appearance to the prior study, possibly postoperative. Echotexture: Normal, homogeneous. Echogenicity: Otherwise normal, except as noted above. Surface contour: Smooth Lesions: None. Biliary: No intrahepatic biliary duct dilation. CBD: 0.5 cm at the hilum. Gallbladder: Absent Right Kidney: No hydronephrosis. Spleen: Craniocaudal length 10.1 cm, normal. There are no splenic lesions. Other: Small volume abdominal ascites. Right pleural effusion. Small collection in the gallbladder fossa measures 4.1 x 1.7 x 2.8 cm, similar to the prior study allowing for differences in technique. HEPATIC VASCULATURE: PORTAL SYSTEM: -Splenic Vein: Patent with antegrade flow (towards the liver). -Main PV: Patent with phasic antegrade flow (towards liver). 92 cm/sec -Right anterior PV: Patent with phasic antegrade flow (towards liver). 52 cm/sec -Right posterior PV: Patent with phasic antegrade flow (towards liver). 46 cm/sec -Left PV: Patent with phasic antegrade flow (towards liver). 46 cm/sec HEPATIC ARTERIES: - Main THIBODEAUX: High resistance wave form PSV: 33 cm/sec. RI: 1.0 ; previously 25-48 cm/s. RI: 1.0 - Right anterior THIBODEAUX: High resistance wave form PSV: 38 cm/sec. RI: 0.85 ; previously 37-52 cm/s. RI: 1.0 - Right posterior THIBODEAUX: High resistance wave form PSV: 31 cm/sec. RI: 1.0 ; previously 33-52 cm/s. RI: 1.0 - Left THIBODEAUX: High resistance wave form PSV: 39 cm/sec. RI: 1.0 ; previously 35-45 cm/s. RI: 1.0 HEPATIC VEINS: -Left: Patent with triphasic waveform. -Middle: Patent with triphasic waveform. -Right: Patent with triphasic waveform. IVC: Patent with normal, phasic wave form. Procedure Note Provider, [facility] - 09/10/2024 * * *Final Report* * * DATE OF EXAM: Sep 10 2024 9:35AM [facility] 1033 - US DOPPLER COMPLETE / PROCEDURE REASON: Liver transplant * * * * Physician Interpretation * * * * EXAMINATION: LIVER VASCULAR ULTRASOUND WITH DOPPLER IMAGING CLINICAL HISTORY: 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 Images were obtained and stored in a permanent archive. MQ: USLV_1 COMPARISON: 09/09/2024 RESULT: Sonographic Findings: Pancreas: Normal sonographic appearance. Portions obscured: tail Liver: Irregular, heterogeneous hypoechoic region in the right hepatic lobe is similar in appearance to the prior study, possiblypostoperative. Echotexture: Normal, homogeneous. Echogenicity: Otherwise normal, except as noted above. Surface contour: Smooth Lesions: None. Biliary: No intrahepatic biliary duct dilation. CBD: 0.5 cm at the hilum. Gallbladder: Absent Right Kidney: No hydronephrosis. Spleen: Craniocaudal length 10.1 cm, normal. There are no splenic lesions. Other: Small volume abdominal ascites. Right pleural effusion. Small collection in the gallbladder fossa measures 4.1 x 1.7 x 2.8 cm, similar to the prior study allowing for differences in technique. HEPATIC VASCULATURE: PORTAL SYSTEM: -Splenic Vein: Patent with antegrade flow (towards the liver). -Main PV: Patent with phasic antegrade flow (towards liver). 92 cm/sec -Right anterior PV: Patent with phasic antegrade flow (towards liver). 52 cm/sec -Right posterior PV: Patent with phasic antegrade flow (towards liver). 46 cm/sec -Left PV: Patent with phasic antegrade flow (towards liver). 46 cm/sec HEPATIC ARTERIES: - Main THIBODEAUX: High resistance wave form PSV: 33 cm/sec. RI: 1.0 ; previously 25-48 cm/s. RI: 1.0 - Right anterior THIBODEAUX: High resistance wave form PSV: 38 cm/sec. RI: 0.85 ; previously 37-52 cm/s. RI: 1.0 - Right posterior THIBODEAUX: High resistance wave form PSV: 31 cm/sec. RI: 1.0 ; previously 33-52 cm/s. RI: 1.0 - Left THIBODEAUX: High resistance wave form PSV: 39 cm/sec. RI: 1.0 ; previously 35-45 cm/s. RI: 1.0 HEPATIC VEINS: -Left: Patent with triphasic waveform. -Middle: Patent with triphasic waveform. -Right: Patent with triphasic waveform. IVC: Patent with normal, phasic wave form. IMPRESSION IMPRESSION: PATENT HEPATIC VASCULATURE WITH APPROPRIATELY DIRECTED FLOW. PERSISTENTLY ELEVATED ARTERIAL RESISTIVE INDICES. ATTENTION ON FOLLOW-UP. CENTRAL HETEROGENEITY IN THE RIGHT HEPATIC LOBE MAY BE RELATED TO POSTOPERATIVE EDEMA. OTHERWISE, NORMAL SONOGRAPHIC APPEARANCE OF THE TRANSPLANT LIVER. Telegrapher Agent: [facility] Transcribe Date/Time: Sep 10 2024 2:16P Dictated by : ESTEFANY ADAMS MD This examination was interpreted and the report reviewed and electronically signed by: ESTEFANY ADAMS MD on Sep 10 2024 2:27PM EST us Jaylin Daly MD US-PAMA Final Resul t * US ABD LIVER VASCULAR TRANSPLANT ([facility]) (09/10/2024 10:26 AM EDT) Anatomical Region Laterality Modality Abdomen Ultrasound 09/10/2024 9:20 AM EDT Impressions 09/10/2024 2:29 PM EDT IMPRESSION: PATENT HEPATIC VASCULATURE WITH APPROPRIATELY DIRECTED FLOW. PERSISTENTLY ELEVATED ARTERIAL RESISTIVE INDICES. ATTENTION ON FOLLOW-UP. CENTRAL HETEROGENEITY IN THE RIGHT HEPATIC LOBE MAY BE RELATED TO POSTOPERATIVE EDEMA. OTHERWISE, NORMAL SONOGRAPHIC APPEARANCE OF THE TRANSPLANT LIVER. Telegrapher Agent: PSCPatricia Transcribe Date/Time: Sep 10 2024 2:16P Dictated by : ESTEFANY ADAMS MD This examination was interpreted and the report reviewed and electronically signed by: ESTEFANY ADAMS MD on Sep 10 2024 2:27PM EST Narrative 09/10/2024 2:29 PM EDT * * *Final Report* * * DATE OF EXAM: Sep 10 2024 9:20AM [facility] 0685 - US ABD LIVER VASCULAR TRANSPLANT [...] in a permanent archive. MQ: USLV_1 COMPARISON: 09/09/2024 RESULT: Sonographic Findings: Pancreas: Normal sonographic appearance. Portions obscured: tail Liver: Irregular, heterogeneous hypoechoic region in the right hepatic lobe is similar in appearance to the prior study, possibly postoperative. Echotexture: Normal, homogeneous. Echogenicity: Otherwise normal, except as noted above. Surface contour: Smooth Lesions: None. Biliary: No intrahepatic biliary duct dilation. CBD: 0.5 cm at the hilum. Gallbladder: Absent Right Kidney: No hydronephrosis. Spleen: Craniocaudal length 10.1 cm, normal. There are no splenic lesions. Other: Small volume abdominal ascites. Right pleural effusion. Small collection in the gallbladder fossa measures 4.1 x 1.7 x 2.8 cm, similar to the prior study allowing for differences in technique. HEPATIC VASCULATURE: PORTAL SYSTEM: -Splenic Vein: Patent with antegrade flow (towards the liver). -Main PV: Patent with phasic antegrade flow (towards liver). 92 cm/sec -Right anterior PV: Patent with phasic antegrade flow (towards liver). 52 cm/sec -Right posterior PV: Patent with phasic antegrade flow (towards liver). 46 cm/sec -Left PV: Patent with phasic antegrade flow (towards liver). 46 cm/sec HEPATIC ARTERIES: - Main THIBODEAUX: High resistance wave form PSV: 33 cm/sec. RI: 1.0 ; previously 25-48 cm/s. RI: 1.0 - Right anterior THIBODEAUX: High resistance wave form PSV: 38 cm/sec. RI: 0.85 ; previously 37-52 cm/s. RI: 1.0 - Right posterior THIBODEAUX: High resistance wave form PSV: 31 cm/sec. RI: 1.0 ; previously 33-52 cm/s. RI: 1.0 - Left THIBODEAUX: High resistance wave form PSV: 39 cm/sec. RI: 1.0 ; previously 35-45 cm/s. RI: 1.0 HEPATIC VEINS: -Left: Patent with triphasic waveform. -Middle: Patent with triphasic waveform. -Right: Patent with triphasic waveform. IVC: Patent with normal, phasic wave form. Procedure Note Provider, [facility] - 09/10/2024 * * *Final Report* * * DATE OF EXAM: Sep 10 2024 9:20AM [facility] 0685 - US [facility] LIVER VASCULAR TRANSPLANT / PROCEDURE REASON: Liver transplant * * * * Physician Interpretation * * * * EXAMINATION: LIVER VASCULAR ULTRASOUND WITH DOPPLER IMAGING CLINICAL HISTORY: 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 Images were obtained and stored in a permanent archive. MQ: USLV_1 COMPARISON: 09/09/2024 RESULT: Sonographic Findings: Pancreas: Normal sonographic appearance. Portions obscured: tail Liver: Irregular, heterogeneous hypoechoic region in the right hepatic lobe is similar in appearance to the prior study, possiblypostoperative. Echotexture: Normal, homogeneous. Echogenicity: Otherwise normal, except as noted above. Surface contour: Smooth Lesions: None. Biliary: No intrahepatic biliary duct dilation. CBD: 0.5 cm at the hilum. Gallbladder: Absent Right Kidney: No hydronephrosis. Spleen: Craniocaudal length 10.1 cm, normal. There are no splenic lesions. Other: Small volume abdominal ascites. Right pleural effusion. Small collection in the gallbladder fossa measures 4.1 x 1.7 x 2.8 cm, similar to the prior study allowing for differences in technique. HEPATIC VASCULATURE: PORTAL SYSTEM: -Splenic Vein: Patent with antegrade flow (towards the liver). -Main PV: Patent with phasic antegrade flow (towards liver). 92 cm/sec -Right anterior PV: Patent with phasic antegrade flow (towards liver). 52 cm/sec -Right posterior PV: Patent with phasic antegrade flow (towards liver). 46 cm/sec -Left PV: Patent with phasic antegrade flow (towards liver). 46 cm/sec HEPATIC ARTERIES: - Main THIBODEAUX: High resistance wave form PSV: 33 cm/sec. RI: 1.0 ; previously 25-48 cm/s. RI: 1.0 - Right anterior THIBODEAUX: High resistance wave form PSV: 38 cm/sec. RI: 0.85 ; previously 37-52 cm/s. RI: 1.0 - Right posterior THIBODEAUX: High resistance wave form PSV: 31 cm/sec. RI: 1.0 ; previously 33-52 cm/s. RI: 1.0 - Left THIBODEAUX: High resistance wave form PSV: 39 cm/sec. RI: 1.0 ; previously 35-45 cm/s. RI: 1.0 HEPATIC VEINS: -Left: Patent with triphasic waveform. -Middle: Patent with triphasic waveform. -Right: Patent with triphasic waveform. IVC: Patent with normal, phasic wave form. IMPRESSION IMPRESSION: PATENT HEPATIC VASCULATURE WITH APPROPRIATELY DIRECTED FLOW. PERSISTENTLY ELEVATED ARTERIAL RESISTIVE INDICES. ATTENTION ON FOLLOW-UP. CENTRAL HETEROGENEITY IN THE RIGHT HEPATIC LOBE MAY BE RELATED TO POSTOPERATIVE EDEMA. OTHERWISE, NORMAL SONOGRAPHIC APPEARANCE OF THE TRANSPLANT LIVER. Telegrapher Agent: PSCB Transcribe Date/Time: Sep 10 2024 2:16P Dictated by : ESTEFANY ADAMS MD This examination was interpreted and the report reviewed and electronically signed by: ESTEFANY ADAMS MD on Sep 10 2024 2:27PM EST Jaylin Daly MD -PAMA Final Resul t * ALLOGEN SOT DONOR RPT (09/10/2024 10:15 AM EDT) 09/10/2024 10:1 5 AM EDT Narrative OTHER LAB - 09/10/2024 10:15 AM EDT [address] [place] [address] ([facility]) CLIA ID# [id number] Director: Dr. Bob Escobar, PhD, F([facility]) Order Date: 09/10/2024 Physician of Record: Mateo Tiwari Reported Date: 09/26/2024 3:01:57 PM Test Name: Solid Organ with Donor Patient Name: CHARLES BLANDON Donor Name: Donor Donor ID: [id number] Relationship: Donor Report Status: Final Patient HLA Specimen Date: 04/29/2024 & 09/08/2024 Patient HLA Class I Typing: HLA-A 2 , 29 HLA-B 44 , 45 HLA-Bw 4 , 6 HLA-C* 05:01 , 06:02 Patient HLA Class II Typing: HLA-DR 1 , 17 HLA-DR 52 , - HLA-DQ 2 , 5 HLA-DQA1* 01:01 , 05:01 HLA-DPA1* 01:03 , - HLA-DPB1* 04:01 , - NOT RULED OUT: C*05:01/05:248; C*06:02/06:274; COMMENTS: This is a verification typing result by molecular testing only. Results are consistent with those previously reported. Donor HLA Specimen Date: 09/06/2024 & 09/08/2024 Donor HLA Class I Typing: HLA-A 2 , 33 HLA-B 49 , 78 HLA-Bw 4 , 6 HLA-C* 07:18 , 16:01 Donor HLA Class II Typing: HLA-DR 17 , 13 HLA-DR 52 , - HLA-DQ 2 , 6 HLA-DQA1* 01:03 , 05:01 HLA-DPA1* 01:03 , 02:02 HLA-DPB1* 01:01 , 02:01 HLA TYPING ANALYSIS HLA-AB Mismatch: 3 HLA-DR Mismatch: 1 HLA-DQ Mismatch: 1 FLOW CYTOMETRY IgG CROSSMATCH RESULTS: T Cell current serum (09/08/2024) RESULT: Negative MESF SHIFT: (0) B Cell current serum (09/08/2024) RESULT: Negative MESF SHIFT: (0) FLOW CYTOMETRY IgG CROSSMATCH CUTOFF VALUES: T CELL: MESF SHIFT >= 1400 and < 4000 is considered WEAK POSITIVE MESF SHIFT >= 4000 is considered POSITIVE B CELL: MESF SHIFT >= 2200 and < 78190 is considered WEAK POSITIVE MESF SHIFT >= 38975 is considered POSITIVE ANTIBODY SUMMARY: Serum date: 09/08/2024 Combined Class I & II cPRA: 0 Combined Strong Class I & II cPRA: 0 Class I cPRA: 0 Class I specificities: none Strong Class I cPRA: 0 Strong Class I specificities: none Class II cPRA: 0 Class II specificities: none Strong Class II cPRA: 0 Strong Class II specificities: none Comments: Donor Crossmatch Flow Cytometry T and B Cell crossmatches negative No detectable HLA donor specific antibody FINAL REVIEW BY: Pavel Parikh 09/26/2024 Patient Samples: Sample Date SpecimenTypeCd Status Code Comments 09/08/2024 WE Active 09/08/2024 WB Active 04/29/2024 WE Active Donor Samples: Sample Date SpecimenTypeCd Status Code Comments 09/08/2024 TN Active 09/06/2024 WE Active 09/06/2024 WH Active 09/06/2024 WB Active ABBREVIATIONS: cPRA = calculated panel reactive antibody DSA = donor specific antibody MFI = mean fluorescence intensity NT = not requested, not tested, not needed MESF = Molecules of Equivalent Soluble Fluorochrome -HLA typing results generated using a combination of PCR-RSSOP, SSP, SBT, NGS, serologic testing, and/or family studies. -Typings with two identical antigens at a given locus have been determined by molecular typing and/or substantiated by family studies. -HLA typing results are reported as low resolution at the antigen level. -Antibody testing performed using Luminex and/or Flow Beads. -HLA antibody results are reported based upon the antibody assay kit defined panel specificities. -cPRA calculated using a local algorithm analogous to OPTN cPRA calculator and may differ from UNOS values. -Weak antibody designated for results of >= 1000 and < 4000 MFI. -Strong antibody designated for results of >= 4000 MFI for HLA-A, B, DR, DQ and >= 12,000 MFI for HLA-C, DP and/or C1q positive. -Bw4/6 may be assigned by association. This test was developed and its performance characteristics determined by [facility]. The test has not been cleared or approved by the [place] FDA. However, FDA approval was not necessary since this lab is certified under CLIA for high complexity testing. This note was electronically signed by Hay Parikh on 09/26/2024 at 15:01 us [facility] Provider [facility] Final Result OTHER LAB * (ABNORMAL) THROMBOGRAPH PANEL (09/10/2024 12:21 AM EDT) Only the most recent of2 resultswithin the time period is included. R Value (Thrombograph) 8.5 4.0 - 10.0 minutes 09/10/2024 2:10 AM EDT [facility] Degree Angle (Thrombograph) 53.6 47.0 - 74.0 degrees 09/10/2024 2:10 AM EDT [facility] Maximum Amplitude (Thrombograph) 44.6(L) 51.0 - 75.0 mm 09/10/2024 2:10 AM EDT [facility] Lysis Time 30 (Thrombograph) 0.0 0.0 - 8.0 % 09/10/2024 2:10 AM EDT [facility] Coagulation Index (Thrombograph) -4.9(L) -4.6 - 3.2 09/10/2024 2:10 AM EDT [facility] Comment:This test was develo ped, and its performance characteristics determined by the [facility] Department of Pathology and Laboratory Medicine. It has not been cleared or approved by the FDA. The [facility] Department of Pathology and Laboratory Medicine is regulated under CLIA as qualified to perform high- complexity testing. This test is used for clinical purposes. It should not be regarded as investigational or for research. Interpretation (Thrombograph) 09/10/2024 2:10 AM T [facility] Comment: A thromboelastograph (TEG) study was performed using citrate-anticoagulated whole blood. The R value, a measure of coagulation function, is within the normal range. This indicates normal coagulation function. The angle, a measure of fibrinogen function, is within normal range. This is indicative of normal fibrinogen concentration or function. The Maximal Amplitude (MA), a measure of platelet function, is decreased. A decreased MA can be seen with increased anti-platelet drug effect, thrombocytopenia, or platelet dysfunction. The Ly30, a measure of fibrinolysis, is normal. This is indicative of normal fibrinolytic function. The coagulation index (CI), a measure of hemostasis function, is decreased. The CI is a calculated parameter based on the other TEG results. Viscoelastic testing is not intended for the monitoring of anticoagulation or antiplatelet medications or the diagnosis and/or management of platelet disorders and/or coagulopathies but may be useful for guiding blood product utilization in emergency and urgent (OR) circumstances when routine coagulation and cell blood counts are not available in a timely manner. Blood BLOOD SPECIMEN / Unknown Venipuncture / Unknown 09/10/2024 12:21 AM EDT 09/10/2024 12:50 AM EDT Jaylin Daly MD LABORATORY Final Resul t Performing Organization Address [facility] Co de Phone Number [facility] [address] [place] [address], [place] * (ABNORMAL) FIBRINOGEN (09/10/2024 12:21 AM EDT) Only the most recent of4 resultswithin the time period is included. Fibrinogen 167(L) 200 - 400 mg/dL 09/10/2024 1:02 AM EDT [facility] Blood BLOOD SPECIMEN / Unknown Venipuncture / Unknown 09/10/2024 12:21 AM EDT 09/10/2024 12:48 AM EDT Jaylin Daly MD LABORATORY Final Resul t Performing Organization Address [facility] de Phone Number [facility] [address] [place] [address], [place] * US ABD LIVER VASCULAR TRANSPLANT ([facility]) (09/09/2024 7:04 PM EDT) Anatomical Region Laterality Modality Abdomen Ultrasound 09/09/2024 6:30 PM EDT Impressions 09/09/2024 7:42 PM EDT IMPRESSION: Patent hepatic vasculature with appropriately directed flow. Elevated portal venous flow velocity and hepatic arterial resistive indices, nonspecific in the immediate postoperative period. Ill-defined hypoechoic region in the right hepatic lobe, likely perioperative in nature. Otherwise normal sonographic appearance of the transplant liver. Small peritransplant collection in the gallbladder fossa. Telegrapher Agent: SRNII Transcribe Date/Time: Sep 09 2024 7:08P Dictated by : NANE SCHUSTER MD This examination was interpreted and the report reviewed and electronically signed by: YOU MAZARIEGOS MD on Sep 09 2024 7:40PM EST Narrative 09/09/2024 7:42 PM EDT * * *Final Report* * * DATE OF EXAM: Sep 09 2024 6:30PM [facility] 0685 - US ABD LIVER VASCULAR TRANSPLANT / PROCEDURE REASON: Liver transplant * * * * Physician Interpretation * * * * EXAMINATION: LIVER VASCULAR ULTRASOUND WITH DOPPLER IMAGING CLINICAL HISTORY: Liver transplanted 09/09/2024 TECHNIQUE: Sonography of the liver with color and spectral Doppler imaging of the hepatic vasculature was performed. Images were obtained and stored in a permanent archive. MQ: USLV_1 COMPARISON: MRI liver 09/02/2024 RESULT: Sonographic Findings: Pancreas: Normal sonographic appearance. Portions obscured: tail and portions of body Liver: Echotexture: Normal, homogeneous. Echogenicity: Normal Surface contour: Smooth Lesions: No focal lesion, though an ill-defined region of hypoechogenicity in the right lobe likely represents perioperative change. Biliary: No intrahepatic biliary duct dilation. CBD: 0.4 cm at the hilum. Right Kidney: No hydronephrosis. Spleen: Craniocaudal length 8.7 cm, normal. There are no splenic lesions. Other: Small volume abdominal ascites. Gallbladder fossa peritransplant collection measuring 3 x 1.1 x 2.7 cm. Right pleural effusion. HEPATIC VASCULATURE: PORTAL SYSTEM: -Splenic Vein: Patent with antegrade flow (towards the liver). -Main PV: Patent with phasic antegrade flow (towards liver). 110-150 cm/sec -Right anterior PV: Patent with phasic antegrade flow (towards liver). 71 cm/sec -Right posterior PV: Patent with phasic antegrade flow (towards liver). 104 cm/sec -Left PV: Patent with phasic antegrade flow (towards liver). 104 cm/sec HEPATIC ARTERIES: - Main THIBODEAUX: High resistance wave form PSV: 25-48 cm/sec. RI: 1.0 - Right anterior THIBODEAUX: High resistance wave form PSV: 37-52 cm/sec. RI: 1.0 - Right posterior THIBODEAUX: High resistance wave form PSV: 33-52 cm/sec. RI: 1.0 - Left THIBODEAUX: High resistance wave form PSV: 35-45 cm/sec. RI: 1.0 HEPATIC VEINS: -Left: Patent with triphasic waveform. -Middle: Patent with triphasic waveform. -Right: Patent with triphasic waveform. IVC: Patent with increased phasicity. Procedure Note Provider, [facility] [place] - 09/09/2024 * * *Final Report* * * DATE OF EXAM: Sep 09 2024 6:30PM [facility] [id number] - US ABD LIVER VASCULAR TRANSPLANT / PROCEDURE REASON: Liver transplant * * * * Physician Interpretation * * * * EXAMINATION: LIVER VASCULAR ULTRASOUND WITH DOPPLER IMAGING CLINICAL HISTORY: Liver transplanted 09/09/2024 TECHNIQUE: Sonography of the liver with color and spectral Doppler imaging of the hepatic vasculature was performed. Images were obtained and stored in a permanent archive. MQ: USLV_1 COMPARISON: MRI liver 09/02/2024 RESULT: Sonographic Findings: Pancreas: Normal sonographic appearance. Portions obscured: tail and portions of body Liver: Echotexture: Normal, homogeneous. Echogenicity: Normal Surface contour: Smooth Lesions: No focal lesion, though an ill-defined region of hypoechogenicity in the right lobe likely represents perioperativechange. Biliary: No intrahepatic biliary duct dilation. CBD: 0.4 cm at the hilum. Right Kidney: No hydronephrosis. Spleen: Craniocaudal length 8.7 cm, normal. There are no splenic lesions. Other: Small volume abdominal ascites. Gallbladder fossa peritransplant collection measuring 3 x 1.1 x 2.7 cm. Right pleural effusion. HEPATIC VASCULATURE: PORTAL SYSTEM: -Splenic Vein: Patent with antegrade flow (towards the liver). -Main PV: Patent with phasic antegrade flow (towards liver). 110-150 cm/sec -Right anterior PV: Patent with phasic antegrade flow (towards liver). 71 cm/sec -Right posterior PV: Patent with phasic antegrade flow (towards liver). 104 cm/sec -Left PV: Patent with phasic antegrade flow (towards liver). 104 cm/sec HEPATIC ARTERIES: - Main THIBODEAUX: High resistance wave form PSV: 25-48 cm/sec. RI: 1.0 - Right anterior THIBODEAUX: High resistance wave form PSV: 37-52 cm/sec. RI: 1.0 - Right posterior THIBODEAUX: High resistance wave form PSV: 33-52 cm/sec. RI: 1.0 - Left THIBODEAUX: High resistance wave form PSV: 35-45 cm/sec. RI: 1.0 HEPATIC VEINS: -Left: Patent with triphasic waveform. -Middle: Patent with triphasic waveform. -Right: Patent with triphasic waveform. IVC: Patent with increased phasicity. IMPRESSION IMPRESSION: Patent hepatic vasculature with appropriately directed flow. Elevated portal venous flow velocity and hepatic arterial resistive indices, nonspecific in the immediate postoperative period. Ill-defined hypoechoic region in the right hepatic lobe, likely perioperative in nature. Otherwise normal sonographic appearance of the transplant liver. Small peritransplant collection in the gallbladder fossa. Telegrapher Agent: [facility] Transcribe Date/Time: Sep 09 2024 7:08P Dictated by : ANNE SCHUSTER MD This examination was interpreted and the report reviewed and electronically signed by: YOU MAZARIEGOS MD on Sep 09 2024 7:40PM EST us Jaylin Daly MD [facility] Final Resul t * US DOPPLER COMPLETE (09/09/2024 7:04 PM EDT) Anatomical Region Laterality Modality Ultrasound 09/09/2024 7:04 PM EDT Impressions 09/09/2024 7:42 PM EDT IMPRESSION: Patent hepatic vasculature with appropriately directed flow. Elevated portal venous flow velocity and hepatic arterial resistive indices, nonspecific in the immediate postoperative period. Ill-defined hypoechoic region in the right hepatic lobe, likely perioperative in nature. Otherwise normal sonographic appearance of the transplant liver. Small peritransplant collection in the gallbladder fossa. Telegrapher Agent: [facility] Transcribe Date/Time: Sep 09 2024 7:08P Dictated by : ANNE SCHUSTER MD This examination was interpreted and the report reviewed and electronically signed by: YOU MAZARIEGOS MD on Sep 09 2024 7:40PM EST Narrative 09/09/2024 7:42 PM EDT * * *Final Report* * * DATE OF EXAM: Sep 09 2024 7:04PM [facility] 1033 - US DOPPLER COMPLETE / PROCEDURE REASON: Liver transplant * * * * Physician Interpretation * * * * EXAMINATION: LIVER VASCULAR ULTRASOUND WITH DOPPLER IMAGING CLINICAL HISTORY: Liver transplanted 09/09/2024 TECHNIQUE: Sonography of the liver with color and spectral Doppler imaging of the hepatic vasculature was performed. Images were obtained and stored in a permanent archive. MQ: USLV_1 COMPARISON: MRI liver 09/02/2024 RESULT: Sonographic Findings: Pancreas: Normal sonographic appearance. Portions obscured: tail and portions of body Liver: Echotexture: Normal, homogeneous. Echogenicity: Normal Surface contour: Smooth Lesions: No focal lesion, though an ill-defined region of hypoechogenicity in the right lobe likely represents perioperative change. Biliary: No intrahepatic biliary duct dilation. CBD: 0.4 cm at the hilum. Right Kidney: No hydronephrosis. Spleen: Craniocaudal length 8.7 cm, normal. There are no splenic lesions. Other: Small volume abdominal ascites. Gallbladder fossa peritransplant collection measuring 3 x 1.1 x 2.7 cm. Right pleural effusion. HEPATIC VASCULATURE: PORTAL SYSTEM: -Splenic Vein: Patent with antegrade flow (towards the liver). -Main PV: Patent with phasic antegrade flow (towards liver). 110-150 cm/sec -Right anterior PV: Patent with phasic antegrade flow (towards liver). 71 cm/sec -Right posterior PV: Patent with phasic antegrade flow (towards liver). 104 cm/sec -Left PV: Patent with phasic antegrade flow (towards liver). 104 cm/sec HEPATIC ARTERIES: - Main THIBODEAUX: High resistance wave form PSV: 25-48 cm/sec. RI: 1.0 - Right anterior THIBODEAUX: High resistance wave form PSV: 37-52 cm/sec. RI: 1.0 - Right posterior THIBODEAUX: High resistance wave form PSV: 33-52 cm/sec. RI: 1.0 - Left THIBODEAUX: High resistance wave form PSV: 35-45 cm/sec. RI: 1.0 HEPATIC VEINS: -Left: Patent with triphasic waveform. -Middle: Patent with triphasic waveform. -Right: Patent with triphasic waveform. IVC: Patent with increased phasicity. Procedure Note Provider, [facility] - 09/09/2024 * * *Final Report* * * DATE OF EXAM: Sep 09 2024 7:04PM [facility] 1033 - US DOPPLER COMPLETE / PROCEDURE REASON: Liver transplant * * * * Physician Interpretation * * * * EXAMINATION: LIVER VASCULAR ULTRASOUND WITH DOPPLER IMAGING CLINICAL HISTORY: Liver transplanted 09/09/2024 TECHNIQUE: Sonography of the liver with color and spectral Doppler imaging of the hepatic vasculature was performed. Images were obtained and stored in a permanent archive. MQ: USLV_1 COMPARISON: MRI liver 09/02/2024 RESULT: Sonographic Findings: Pancreas: Normal sonographic appearance. Portions obscured: tail and portions of body Liver: Echotexture: Normal, homogeneous. Echogenicity: Normal Surface contour: Smooth Lesions: No focal lesion, though an ill-defined region of hypoechogenicity in the right lobe likely represents perioperativechange. Biliary: No intrahepatic biliary duct dilation. CBD: 0.4 cm at the hilum. Right Kidney: No hydronephrosis. Spleen: Craniocaudal length 8.7 cm, normal. There are no splenic lesions. Other: Small volume abdominal ascites. Gallbladder fossa peritransplant collection measuring 3 x 1.1 x 2.7 cm. Right pleural effusion. HEPATIC VASCULATURE: PORTAL SYSTEM: -Splenic Vein: Patent with antegrade flow (towards the liver). -Main PV: Patent with phasic antegrade flow (towards liver). 110-150 cm/sec -Right anterior PV: Patent with phasic antegrade flow (towards liver). 71 cm/sec -Right posterior PV: Patent with phasic antegrade flow (towards liver). 104 cm/sec -Left PV: Patent with phasic antegrade flow (towards liver). 104 cm/sec HEPATIC ARTERIES: - Main THIBODEAUX: High resistance wave form PSV: 25-48 cm/sec. RI: 1.0 - Right anterior THIBODEAUX: High resistance wave form PSV: 37-52 cm/sec. RI: 1.0 - Right posterior THIBODEAUX: High resistance wave form PSV: 33-52 cm/sec. RI: 1.0 - Left THIBODEAUX: High resistance wave form PSV: 35-45 cm/sec. RI: 1.0 HEPATIC VEINS: -Left: Patent with triphasic waveform. -Middle: Patent with triphasic waveform. -Right: Patent with triphasic waveform. IVC: Patent with increased phasicity. IMPRESSION IMPRESSION: Patent hepatic vasculature with appropriately directed flow. Elevated portal venous flow velocity and hepatic arterial resistive indices, nonspecific in the immediate postoperative period. Ill-defined hypoechoic region in the right hepatic lobe, likely perioperative in nature. Otherwise normal sonographic appearance of the transplant liver. Small peritransplant collection in the gallbladder fossa. Telegrapher Agent: SRINI Transcribe Date/Time: Sep 09 2024 7:08P Dictated by : ANNE SCHUSTER MD This examination was interpreted and the report reviewed and electronically signed by: YOU MAZARIEGOS MD on Sep 09 2024 7:40PM EST us Jaylin Daly MD [facility] Final Resul t * PLATELET TRANSFUSION INSTRUCTION ([place], [place]) (09/09/2024 6:58 PM EDT) Only the most recent of3 resultswithin the time period is included. Jaylin Daly MD [facility] Final Resul t * PLATELETS, ADULT (09/09/2024 6:15 PM EDT) Only the most recent of2 resultswithin the time period is included. Product Code A5170A70 [facility] BLOOD BANK Product Identification Platelets CC MAIN BLOOD BANK Status Information Transfused [facility]LOOD B[facility] Product Expiration Date 09/10/2024 23:59 [facility]LOOD [facility] Unit Number [id number] CC M AIN BLOOD BANK Unit Blood Type O Pos CC M AIN BLOOD BANK Issue Date/Time 09/09/2024 18:29 CC [facility]LOOD [facility] Blood BLOOD SPECIMEN / Unknown 09/09/2024 6:15 PM EDT us Jaylin Daly MD BLO[facility] [employer]ODU[employer] Final Resul t [facility]LOOD [facility] [address] [facility] [address] [place] [address], [place] * XR ABDOMEN 1V SUPINE (09/09/2024 5:30 PM EDT) Anatomical Region Laterality Modality Abdomen Radiographic Lisa ging 09/09/2024 5:30 PM EDT Impressions 09/09/2024 6:12 PM EDT IMPRESSION: Tip of an NG tube is at the proximal stomach with side port below the diaphragm. Surgical drains and skin ana rosa over the right abdomen. No dilated bowel loops. Degenerative change of the spine. Right pleural effusion. [facility]legrapher [facility] Transcribe Date/Time: Sep 09 2024 6:09P Dictated by : YOU MAZARIEGOS MD This examination was interpreted and the report reviewed and electronically signed by: YOU MAZARIEGOS MD on Sep 09 2024 6:10PM EST Narrative 09/09/2024 6:12 PM EDT * * *Final Report* * * DATE OF EXAM: Sep 09 2024 5:30PM [facility] [id number] - XR ABDOMEN 1V SUPINE / PROCEDURE REASON: Evaluate tube, line or lead position * * * * Physician Interpretation * * * * PORTABLE KUB ON 09/09/2024 at 1718 HISTORY: Evaluate tube, line or lead position COMPARISON: 09/06/2024 TECHNIQUE: Supine abdomen, 1 view(s); 1 image(s) RESULT: Procedure Note Provider, [facility] [place] - 09/09/2024 * * *Final Report* * * DATE OF EXAM: Sep 09 2024 5:30PM [facility] 5289 - XR ABDOMEN 1V SUPINE / PROCEDURE REASON: Evaluate tube, line or lead position * * * * Physician Interpretation * * * * PORTABLE KUB ON 09/09/2024 at 1718 HISTORY: Evaluate tube, line or lead position COMPARISON: 09/06/2024 TECHNIQUE: Supine abdomen, 1 view(s); 1 image(s) RESULT: IMPRESSION IMPRESSION: Tip of an NG tube is at the proximal stomach with side port below the diaphragm. Surgical drains and skin ana rosa over the right abdomen. No dilated bowel loops. Degenerative change of the spine. Right pleural effusion. Telegrapher Agent: [facility] Transcribe Date/Time: Sep 09 2024 6:09P Dictated by : YOU MAZARIEGOS MD This examination was interpreted and the report reviewed and electronically signed by: YOU MAZARIEGOS MD on Sep 09 2024 6:10PM EST us Jaylin Daly MD [facility] Final Resul t * XR CHEST 1V FRONTAL PORT (09/09/2024 5:30 PM EDT) Anatomical Region Laterality Modality Chest Radiographic Lisa ging 09/09/2024 5:30 PM EDT Impressions 09/09/2024 6:48 PM EDT IMPRESSION: See result. Telegrapher Agent: [facility] Transcribe Date/Time: Sep 09 2024 6:43P Dictated by : NOLA RAMIREZ MD This examination was interpreted and the report reviewed and electronically signed by: NOLA RAMIREZ MD on Sep 09 2024 6:46PM EST Narrative 09/09/2024 6:48 PM EDT * * *Final Report* * * DATE OF EXAM: Sep 09 2024 5:30PM [facility] [id number] - XR CHEST 1V FRONTAL PORT / PROCEDURE REASON: Evaluate tube, line, or lead position * * * * Physician Interpretation * * * * EXAMINATION: CHEST RADIOGRAPH (PORTABLE SINGLE VIEW AP) Exam Date/Time: 09/09/2024 5:30 PM Clinical History: Evaluate tube, line, or lead position, Post-operative/post-procedure assessment MQ: XCPMC_6 Comparison: 1 day prior RESULT: Lines, tubes, and devices: Patient is intubated, with ET tube terminating about 5 cm above the sandra. NG/OG tube is in place, terminating in the lateral stomach with sidehole well below level of the hemidiaphragms. Right subdiaphragmatic surgical drain likely related to liver transplant. Right IJ PA catheter, visible to the right ventricle outflow tract region. Second right IJ venous catheter terminates in the superior cavoatrial junction region. Lungs and pleura: Increased amount of aerated right lung, in the mid to lower lung zones noted, likely improved. Moderate to large right pleural effusion noted, and may be persistent or possibly redistributed. Hyperinflated left lung without new consolidation. Subtle strandy opacities in the left lower lung may relate to atelectasis. Sharp left costophrenic angle. No substantial pneumothorax. Cardiomediastinal silhouette: Presumed stable cardiomediastinal structures, with right silhouette indistinct. Atherosclerotic calcifications of the aorta. Other: . Procedure Note Provider, [facility] [place] - 09/09/2024 * * *Final Report* * * DATE OF EXAM: Sep 09 2024 5:30PM [facility] 5376 - XR CHEST 1V FRONTAL PORT / PROCEDURE REASON: Evaluate tube, line, or lead position * * * * Physician Interpretation * * * * EXAMINATION: CHEST RADIOGRAPH (PORTABLE SINGLE VIEW AP) Exam Date/Time: 09/09/2024 5:30 PM Clinical History: Evaluate tube, line, or lead position, Post-operative/post-procedure assessment MQ: XCPMC_6 Comparison: 1 day prior RESULT: Lines, tubes, and devices: Patient is intubated, with ET tube terminating about 5 cm above the sandra. NG/OG tube is in place, terminating in the lateral stomach with sidehole well below level of the hemidiaphragms. Right subdiaphragmatic surgical drain likely related to liver transplant. Right IJ PA catheter, visible to the right ventricle outflow tract region. Second right IJ venous catheter terminates in the superior cavoatrial junction region. Lungs and pleura: Increased amount of aerated right lung, in the mid to lower lung zones noted, likely improved. Moderate to large right pleural effusion noted, and may be persistent or possibly redistributed. Hyperinflated left lung without new consolidation. Subtle strandy opacities in the left lower lung may relate to atelectasis. Sharp left costophrenic angle. No substantial pneumothorax. Cardiomediastinal silhouette: Presumed stable cardiomediastinal structures, with right silhouette indistinct. Atherosclerotic calcifications of the aorta. Other: . IMPRESSION IMPRESSION: See result. Telegrap[facility] Trans[facility] Date/Time: Sep 09 2024 6:43P Dictated by : NOLA RAMIREZ MD This examination was interpreted and the report reviewed and electronically signed by: NOLA RAMIREZ MD on Sep 09 2024 6:46PM EST Jaylin Daly MD RAD-PAMA Final Resul t * STAPHYLOCOCCUS AUREUS & MRSA SCREEN, PCR, NASAL (09/09/2024 4:48 PM EDT) Only the most recent of2 resultswithin the time period is included. Staphylococcus aureus DNA Not Detected Not Detected CEPHEID GENEXPERT COVID19 09/09/2024 8:31 PM EDT [facility] Swab POSTERIOR NARES / Unknown Non Blood / Unknown 09/09/2024 4:48 PM EDT 09/09/2024 5:22 PM EDT Jaylin Daly MD LABORATORY Final Resul t [facility] [address] [facility] [address] [place] [address], * (ABNORMAL) ARTERIAL BLOOD GASES WITH IONIZED MAGNESIUM (09/09/2024 3:41 PM EDT) Only the most recent of7 resultswithin the time period is included. pH, Arterial 7.41 7.35 - 7.45 09/09/2024 3:56 PM EDT [facility] pH, Temp Corrected, Arterial 7.41 7.35 - 7.45 09/09/2024 3:56 PM EDT [facility] pCO2, Arterial 42 36 - 46 mm Hg 09/09/2024 3:56 PM EDT [facility] pCO2, Temp Corrected, Arterial 42 36 - 46 mmHg 09/09/2024 3:56 PM EDT [facility] pO2, Arterial 143(H) 85 - 95 mm Hg 09/09/2024 3:56 PM EDT [facility] pO2, Temp Corrected, Arterial 143(H) 85 - 95 mmHg 09/09/2024 3:56 PM EDT [facility] Bicarbonate, Arterial 26 22 - 26 mmol/L 09/09/2024 3:56 PM EDT [facility] O2 Saturation, Arterial 99(H) 95 - 98 % 09/09/2024 3:56 PM EDT [facility] Base Excess, Arterial 2 0 - 2 mmol/L 09/09/2024 3:56 PM EDT [facility] Oxyhemoglobin, Arterial 95 95 - 98 % 09/09/2024 3:56 PM EDT [facility] Carboxyhemoglo bin, Arterial 2.4(H) 0.0 - 2.0 % 09/09/2024 3:56 PM EDT [facility] Comment:Carboxyhemoglobin Re ference Range for Smokers: 2.0-8.0% Methemoglobin, Arterial 1.8(H) 0.0 - 1.5 % 09/09/2024 3:56 PM EDT [facility] Sodium, Whole Blood 132(L) 136 - 144 mmol/L 09/09/2024 3:56 PM EDT [facility] Potassium, Whole Blood 4.1 3.5 - 5.0 mmol/L 09/09/2024 3:56 PM EDT [facility] Calcium Ionized, Whole Blood 1.18 1.08 - 1.30 mmol/L 09/09/2024 3:56 PM EDT [facility] Calcium Ionized, pH corrected 1.18 1.08 - 1.30 mmol/L 09/09/2024 3:56 PM EDT [facility] Glucose, Whole Blood 221(H) 60 - 105 mg/dL 09/09/2024 3:56 PM EDT [facility] Lactate 4.0(H) 0.5 - 2.2 mmol/L 09/09/2024 3:56 PM EDT [facility] Ionized Magnesium 1.05(H) 0.45 - 0.60 mmol/L 09/09/2024 3:56 PM EDT [facility] Hemoglobin, Whole Blood 8.1(L) 13.0 - 17.0 g/dL 09/09/2024 3:56 PM EDT [facility] Hematocrit, Whole Blood 25.1(L) 39.0 - 51.0 % 09/09/2024 3:56 PM EDT [facility] Blood, Arterial BLOOD SPECIMEN / Unknown 09/09/2024 3:41 PM EDT 09/09/2024 3:53 PM EDT us Judy Oneal MD BLOOD GASES Final Resul t [facility] [address] [address], * CRYOPRECIPITATE TRANSFUSION INSTRUCTION ([place], [place]) (09/09/2024 3:22 PM EDT) Only the most recent of2 resultswithin the time period is included. us Judy Oneal MD [facility] Final Resul t * CRYOPRECIPITATE, ADULT (09/09/2024 3:00 PM EDT) Product Code X3442E64 [facility]LOOD [facility] Product Identification Cryoprecipitate CC MAIN BLOOD B[facility] Status Information Transfused CC MAIN BLOOD B[facility] Product Expiration Date 09/09/2024 20:53 [facility]LOOD [facility] Unit Number [id number] CC M AIN BLOOD BANK Unit Blood Type O Pos CC M [facility] BLOOD B[facility] Product Code [id number] CC [facility]IN BLOOD B[facility] Product Identification Cryoprecipitate CC MAIN BLOOD BANK Status Information Transfused CC MAIN BLOOD BANK Product Expiration Date 09/09/2024 20:53 CC MAIN BLOOD B[facility] Unit Number [id number] CC M AIN BLOOD BANK Unit Blood Type O Pos CC M AIN BLOOD BANK Issue Date/Time 09/09/2024 15:14 CC MAIN BLOOD BANK Issue Date/Time 09/09/2024 15:14 CC [facility]LOOD B[facility] Blood BLOOD SPECIMEN / Unknown 09/09/2024 3:00 PM EDT Judy Oneal MD BLOOD PRODUCTS Final Resul t [facility] [address] [facility] [address] [place] [address], [place] * FROZEN PLASMA TRANSFUSION INSTRUCTION ([place], [place]) (09/09/2024 1:59 PM EDT) Only the most recent of3 resultswithin the time period is included. us Judy Oneal MD [facility] Final Resul t * (ABNORMAL) THROMBOGRAPH LIVER (HEPARIN) PANEL (09/09/2024 1:20 PM EDT) R Value (Heparinase) 8.1 4.0 - 10.0 minutes 09/09/2024 3:55 PM EDT [facility] K Value (Heparinase) 2.8 1.0 - 3.0 minutes 09/09/2024 3:55 PM EDT [facility] Degree Angle (Heparinase) 53.9 47.0 - 74.0 degrees 09/09/2024 3:55 PM EDT [facility] Maximum Amplitude (Heparinase) 46.0(L) 51.0 - 75.0 mm 09/09/2024 3:55 PM EDT [facility] Lysis Time 30 (Heparinase) 0.0 0.0 - 8.0 % 09/09/2024 3:55 PM EDT [facility] Coagulation Index (Heparinase) -4.4 -4.6 - 3.2 09/09/2024 3:55 PM EDT [facility] Comment:This test was develo ped, and its performance characteristics determined by the [facility] Department of Pathology and Laboratory Medicine. It has not been cleared or approved by the FDA. The [facility] Department of Pathology and Laboratory Medicine is regulated under CLIA as qualified to perform high- complexity testing. This test is used for clinical purposes. It should not be regarded as investigational or for research. Interpretation (Thrombograph) 09/09/2024 3:55 PM EDT [facility] Comment: A thromboelastograph (TEG) study was performed using a citrate-anticoagulated whole blood treated with heparinase to neutralize a heparin effect.The R value decreased to between 4.0 and 10.0 minutes after sample treatment with heparinase. This is consistent with heparin therapy with adequate residual hemostasis. The K time (K), a measure of time to clot formation (amplitude 20 mm), is normal. This is indicative of normal fibrinogen and platelet function. The angle, a measure of fibrinogen function, is within normal range. This is indicative of normal fibrinogen concentration or function. The Maximal Amplitude (MA), a measure of platelet function, is decreased. A decreased MA can be seen with increased anti-platelet drug effect, thrombocytopenia, or platelet dysfunction. The Ly30, a measure of fibrinolysis, is normal. This is indicative of normal fibrinolytic function. The coagulation index (CI), a measure of hemostasis function, is within the normal range. The CI is a calculated parameter based on the other TEG results. Viscoelastic testing is not intended for the monitoring of anticoagulation or antiplatelet medications or the diagnosis and/or management of platelet disorders and/or coagulopathies but may be useful for guiding blood product utilization in emergency and urgent (OR) circumstances when routine coagulation and cell blood counts are not available in a timely manner. Blood BLOOD SPECIMEN / Unknown 09/09/2024 1:20 PM EDT 09/09/2024 3:48 PM EDT us Judy Oneal MD LABORATORY Final Resul t [facility] [address] [facility] [address] [place] [address], * SURGICAL PATHOLOGY (09/09/2024 10:57 AM EDT) Only the most recent of3 resultswithin the time period is included. Case Report Surgical Pathology Report Case: [id number] Authorizing Provider: Sonido Nava, Collected: 09/09/2024 10:57 AM Ordering Location: Admitting Received: 09/10/2024 08:49 AM Pathologist: Sindhu Castañeda MD Specimens: A) - Liver, Resection B) - Gallbladder 09/20/2024 12:50 PM EDT [facility] FINAL DIAGNOSIS A. Chemehuevi liver, explant for transplantation. - Moderately differentiated hepatocellular carcinoma. See comment and synoptic report. - No evidence of lymphovascular space invasion. - Cirrhosis, etiology not apparent histologically. - Negative surgical margins. B. Gallbladder, cholecystectomy: - Chronic cholecystitis with cholelithiasis. 09/20/2024 12:50 PM EDT [facility] at 1250 EDT Diagnosis Comment A. The sections show liver parenchyma with nodular architecture consistent with cirrhosis. There is no steatosis or cholestasis. Sinusoidal congestion and dilation is present. Bile ductular proliferation and minimal chronic infiltrates are seen in fibrous bands. There is no interface activity. Bile duct injury or loss are not identified. There are no granulomas. Mild iron deposition is seen in hepatocytes and Kupffer cells on the iron stain (1+ of 4+). PAS/D stain does not reveal diagnostic alpha-1 antitrypsin inclusions. The findings are consistent with cirrhosis, the etiology is not apparent histologically. The patient's history of alcoholic cirrhosis is noted. In that setting, the histologic findings could be consistent with the burned out phase of alcoholic steatohepatitis. Reticulin stains were performed on blocks A 4 and A6 and they are technically suboptimal, so not contributory to the diagnosis. Glypican 3 stains were performed on blocks A4 and A6 and are negative in the lesion. Based on the histologic findings, the lesion described in segment 8 is consistent with an hepatocellular carcinoma. Dr. Paulina Escobar has reviewed selected slides on the lesion and concurs. 09/20/2024 12:50 PM EDT [facility] Block for additional Biomarkers/Mol ecular studies A4 09/20/2024 12:50 PM T [facility] Synoptic Report HEPATOCELLULAR CARCINOMA HEPATOCELLULAR CARCINOMA: RESECTION - A 8th Edition - Protocol posted: 10/06/2021 SPECIMEN Procedure: Total hepatectomy TUMOR Histologic Type: Hepatocellular carcinoma Histologic Grade: G2, moderately differentiated Tumor Focality: Solitary TUMOR CHARACTERISTICS: Tumor Identification: 1 Tumor Site: Segmental location: segment 8 Tumor Size: Greatest dimension of viable tumor (Centimeters): 1.4 cm Treatment Effect: No known presurgical therapy Tumor Extent: Confined to liver Vascular Invasion: Not identified MARGINS Margin Status: All margins negative for invasive carcinoma Closest Margin(s) to Invasive Carcinoma: hepatic vein margin Distance from Invasive Carcinoma to Closest Margin: 5.5 cm REGIONAL LYMPH NODES Regional Lymph Node Status: Not applicable (no regional lymph nodes submitted or found) PATHOLOGIC STAGE CLASSIFICATION (pTNM, AJCC 8th Edition) Reporting of pT, pN, and (when applicable) pM categories is based on information available to the pathologist at the time the report is issued. As per the AJCC (Chapter 1, 8th Ed.) it is the managing physician s responsibility to establish the final pathologic stage based upon all pertinent information, including but potentially not limited to this pathology report. pT Category: pT1a pN Category: pN not assigned (no nodes submitted or found) ADDITIONAL FINDINGS Additional Findings: Cirrhosis 09/20/2024 12:50 PM T [facility] Gross Description A. Liver, Resection Received fresh and fixed in formalin labeled liver resection is an entire liver, without gallbladder, weighing 1002.66 grams and measuring 18.5 x 14.8 x 8.5 cm. The capsule has a micronodular texture. There is a portion of possible diaphragm adherent to the surface measuring 1.6 x 1.4 x 0.3 cm. The overall configuration of the liver is shrunken and cirrhotic. On cross-section the parenchyma is red-brown with a micronodular cut surface. Cirrhotic nodules range in size from 0.2 to 0.7 cm. A dominant nodule is identified in the right lobe (segment 8), which measures 1.4 x 1.0 x 0.9 cm. This nodule is present 0.6 cm from the capsule and is 9.0 cm from the portal vein margin, 9.5 cm from the hepatic artery and hepatic duct margins and 5.5 cm from the nearest hepatic vein margin. The hepatic and portal veins are normal. Intrahepatic bile ducts are prominent. Bile lakes are not present. Feed House Supervisor sections are submitted as follows: A1: Hepatic artery, portal vein and probable hepatic duct margins A2: Hepatic vein margins A3-A6: Right lobe lesion, entirely submitted A7: Feed House Supervisor section of left lobe A8: Feed House Supervisor section of right lobe A9: Feed House Supervisor section of caudate lobe A10: Feed House Supervisor section of quadrate lobe Gross examination performed at [address] 09/10/24 10:55 AM B. Gallbladder Received fixed in formalin labeled gallbladder is a gallbladder measuring 6.2 x 3.2 x 1.6 cm. The serosal aspect is scant. A sutured defect is present. The lumen contains no bile. The wall of the gallbladder averages 0.3 to 0.4 cm in thickness. Multiple black, irregular calculi are identified measuring between 0.2 and 0.7 cm in greatest dimension and aggregating to 1.0 x 1.0 x 0.2 cm. A calculus is not impacted in the cystic duct. The mucosa brown-bazzi and unremarkable. Feed House Supervisor sections are submitted in B1. Gross examination performed at [place] [id number] 09/10/24 4:40 PM's 09/20/2024 12:50 PM EDT [facility] Clinical History Pre-op diagnosis: Decompensated cirrhosis (HCC) [K72.90, K74.60] 09/20/2024 12:50 PM EDT [facility] Performing Lab Diagnostic interpretation performed at: [facility], [address] [place] [address], [place] [address] CLIA# [id number] Breakdown Worker: Emmett New MD 09/20/2024 12:50 PM EDT [facility] Disclaimer Laboratory Developed Test (LDT) Disclaimer: Performance characteristics of immunohistochemica l, immunofluorescent, and chromogenic in-situ hybridization tests have been determined by the performing laboratory within [facility]'s Phillip Bijal [facility] Pathology and Laboratory Medicine Department ([facility], [facility], [facility], [facility], [facility], Counts Include [facility], or [facility]) in a manner consistent with CLIA requirements. One or more of these tests may not have been cleared or approved by the FDA. [facility] is regulated under CLIA as qualified to perform high-complexity testing. These tests are used for clinical purposes. These should not be regarded as investigational or for research. Positive and negative controls stain appropriately. 09/20/2024 12:50 PM EDT [facility] Tissue RESECTION OF SEGMENT OF LIVER / Unknown 09/09/2024 10:57 AM EDT 09/10/2024 8:49 AM EDT Comment:[place]vi liver (Liver Transplant) Tissue specimen (specimen) GALLBLADDER STRUCTURE / Unknown 09/09/2024 2:41 PM EDT 09/10/2024 8:49 AM EDT Comment:Donor gallbladder Sonido Nava MD SURGICAL PATHOLOGY Fin al Result Performing Organization Address City/[facility]/ZIP Co de Phone Number [facility] [address] [address], [place] * FUNGAL CULTURE AND SMEAR (NON DERMAL) (09/09/2024 10:42 AM EDT) Culture, Fungal No Fungus isolated after 28 days MINIMUM INHIBITORY CONCENTRATION( [facility]K) 10/07/2024 2:01 PM EDT [facility] Fungal Smear No fungus seen 10/07/2024 2:01 PM EDT [facility] Sterile Fluid/Body Fluid ASCITIC FLUID SPECIMEN / Unknown 09/09/2024 10:42 AM EDT 09/09/2024 10:57 AM EDT Comment:Pre-op diagnosis: Decompensated cirrhosis (HCC) [K72.90, K74.60] Sonido Nava MD MICROBIOLOGY Final Result Performing Organization Address City/[facility]/ZIP Co de Phone Number [facility] [address] [facility] [address] [address], [place] * INSERTION FLOW DIRECTED CATHETER FOR MONITORING, NE AN PA CATHETER INTRODUCER DOUBLE LUMEN (09/09/2024 9:15 AM EDT) Narrative Judy Kraft MD - 09/09/2024 9:15 AM EDT Judy Kraft MD 09/09/2024 3:49 PM PA Catheter General Information Procedure Start Time/Medication Administration: 09/09/2024 9:15 AM Procedure End time: 09/09/2024 9:26 AM Patient location during procedure: OR 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 Anesthesiologist: Judy Kraft MD Resident: Hoang Garrison MD Performed by: resident and anesthesiologist Preparation Sterility Preparation: hand hygiene performed prior to procedure, sterile gloves, drapes, and procedure tray, gown used during line insertion, surgical cap used, mask used, sterile drape used during line insertion, skin prep agent completely dried prior to procedure Site Prep: Chloraprep Procedure Details New Introducer Placed: Yes Introducer Details Catheter Size: 9 Fr Number of Lumens: Double lumen Ultrasound Guided: Yes Image in Chart: Yes Sites: potential access sites evaluated, selected vessel patent, concurrent real time ultrasound visualization of vascular needle entry Vessel: target vessel identified and guidewire advanced into vessel Number of Attempts: 1 Number of Guidewires Used: 1 Number of Guidewires Removed Intact: 1 Chest X-ray Ordered: No Post Insertion Ports and Catheter: all ports aspirate easily, all ports flush easily and ports flushed with saline Catheter Secured: suture(s) and antimicrobial dressing applied Events Events: patient tolerated procedure well with no complications PA Catheter Size: 7.5 Fr PA Catheter Length: 110 cm PA Catheter Side: right PA Catheter Site: internal jugular PA Catheter Type: latex balloonPorts Flushed: Yes Distance inserted prior to balloon inflation: 20 cm Ballon inflated with: air PA waveform obtained: 45 cm Events PA Catheter events: patient tolerated procedure well with no complications () us Judy Oneal MD ANESTHESIA ORDERABLES Final Result * NE AN CENTRAL LINE DOUBLE LUMEN, NE AN ULTRASOUND GUIDANCE, NE AN CENTRAL LINE DOUBLE LUMEN PROC DOC LDA (09/09/2024 9:15 AM EDT) Narrative Judy Kraft MD - 09/09/2024 9:15 AM EDT Judy Kraft MD 09/09/2024 3:48 PM CVL General Information Procedure Start Time/Medication Administration: 09/09/2024 9:15 AM Procedure End Time: 09/09/2024 9:26 AM Patient location during procedure: OR 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 Indication: central venous access and CVP monitoring Staffing Anesthesiologist: Judy Kraft MD Resident: Hoang Garrison MD Performed by: resident and anesthesiologist Preparation Sterility Preparation: hand hygiene performed prior to procedure, sterile gloves, drapes, and procedure tray, surgical cap used, mask used, sterile drape used during line insertion, skin prep agent completely dried prior to procedure Site Prep: Chloraprep Procedure Details Patient Position: Trendelenburg Laterality: Right Site: Internal jugular Catheter Type: Standard CVL Catheter Size: 8 Fr Catheter Length (cm): 16 Number of Lumens: Double lumen Ultrasound Guided: Yes Image in Chart: Yes Sites: potential access sites evaluated, selected vessel patent, concurrent real time ultrasound visualization of vascular needle entry Vessel: target vessel identified and guidewire advanced into vessel Needle advanced into vein and blood aspirated: Yes Transduced prior to dilation: Yes Number of Attempts: 1 Number of Guidewires Used: 1 Number of Guidewires Removed Intact: 1 Chest X-ray Ordered: No Post Insertion Ports and Catheter: all ports aspirate easily, all ports flush easily and ports flushed with saline Catheter Secured: suture(s) and antimicrobial dressing applied Events Events: patient tolerated procedure well with no complications Judy Oneal MD ANESTHESIA ORDERABLES Final Result * THROMBOGRAPH LIVER PANEL (09/09/2024 9:11 AM EDT) R Value (Thrombograph) 4.8 4.0 - 10. 0 minutes 09/09/2024 11:48 AM EDT [facility] K Value (Thrombograph) 1.5 1.0 - 3.0 minutes 09/09/2024 11:48 AM EDT [facility] Degree Angle (Thrombograph) 69.7 47.0 - 74.0 degrees 09/09/2024 11:48 AM EDT [facility] Maximum Amplitude (Thrombograph) 57.8 51.0 - 75.0 mm 09/09/2024 11:48 AM EDT [facility] Lysis Time 30 (Thrombograph) 1.6 0.0 - 8.0 % 09/09/2024 11:48 AM EDT [facility] Coagulation Index (Thrombograph) 0.9 -4.6 - 3.2 09/09/2024 11:48 AM EDT [facility] Comment:This test was develo ped, and its performance characteristics determined by the [facility] Department of Pathology and Laboratory Medicine. It has not been cleared or approved by the FDA. The [facility] Department of Pathology and Laboratory Medicine is regulated under CLIA as qualified to perform high- complexity testing. This test is used for clinical purposes. It should not be regarded as investigational or for research. Interpretation (Thrombograph) 09/09/2024 11:48 AM EDT [facility] Comment: A thromboelastograph (TEG) study was performed using citrate-anticoagulated whole blood. The R value, a measure of coagulation function, is within the normal range. This indicates normal coagulation function. The K time (K), a measure of time to clot formation (amplitude 20 mm), is normal. This is indicative of normal fibrinogen and platelet function. The angle, a measure of fibrinogen function, is within normal range. This is indicative of normal fibrinogen concentration or function. The Maximal Amplitude (MA), a measure of platelet function, is within the normal range. The Ly30, a measure of fibrinolysis, is normal. This is indicative of normal fibrinolytic function. The coagulation index (CI), a measure of hemostasis function, is within the normal range. The CI is a calculated parameter based on the other TEG results. Viscoelastic testing is not intended for the monitoring of anticoagulation or antiplatelet medications or the diagnosis and/or management of platelet disorders and/or coagulopathies but may be useful for guiding blood product utilization in emergency and urgent (OR) circumstances when routine coagulation and cell blood counts are not available in a timely manner. Blood BLOOD SPECIMEN / Unknown 09/09/2024 9:11 AM EDT 09/09/2024 9:19 AM EDT us Judy Oneal MD LABORATORY Final Resul t Performing Organization Address City/[facility]/ZIP Co de Phone Number [facility] [address] [place] [address], [place] * (ABNORMAL) PLATELET COUNT (09/09/2024 9:11 AM EDT) Platelet Count 99(L) 150 - 400 k/uL 09/09/2024 9:33 AM EDT [facility] Comment:No clot detected. Blood BLOOD SPECIMEN / Unknown 09/09/2024 9:11 AM EDT 09/09/2024 9:19 AM EDT us Judy Oneal MD LABORATORY Final Resul t Performing Organization Address [facility] Co de Phone Number [facility] [address] [place] [id number], [place] * ARTL CATHJ/CANNULJ MNTR/TRANSFUSION SPX PRQ (09/09/2024 9:00 AM EDT) Narrative Judy Kraft MD - 09/09/2024 9:00 AM EDT Judy Kraft MD 09/09/2024 3:51 PM A-Line General Information Procedure Start Time/Medication Administration: 09/09/2024 9:00 AM Procedure End Time: 09/09/2024 9:00 AM Patient location during procedure: OR Timeout Performed Pre-procedure: timeout performed Indications: continuous blood pressure monitoring and blood sampling needed Staffing Anesthesiologist: Judy Kraft MD Performed by: anesthesiologist Preparation Sterility Preparation: hand hygiene performed prior to procedure, sterile gloves, drapes, and procedure tray, surgical cap used, mask used, sterile drape used during line insertion, skin prep agent completely dried prior to procedure Site Prep: Chloraprep Procedure Details Catheter Type: arterial line Catheter Size: 20 G Catheter Length: 12 cm Micropuncture Kit Used: No Guidewire Used: Yes Guidewire Removed Intact: Yes Laterality: right Site: radial artery Ultrasound Guided: Yes Image in Chart: No Sites: potential access sites evaluated, selected vessel patent, concurrent real time ultrasound visualization of vascular needle entry Vessel: target vessel identified and guidewire advanced into vessel Line Secured: Galinarm and tape Events Events: patient tolerated procedure well with no complications Comments I performed this procedure. Judy Oneal MD us Judy Oneal MD ANESTHESIA ORDERABLES Edite d Result - Final * Airway (09/09/2024 8:48 AM EDT) Narrative Judy Kraft MD - 09/09/2024 8:48 AM EDT Judy Kraft MD 09/09/2024 3:50 PM Airway General Information Procedure Start Time/Medication Administration: 09/09/2024 8:48 AM Procedure End Time: 09/09/2024 8:48 AM Patient location during procedure: OR Timeout Performed Pre-procedure: timeout performed Consent Obtained: Yes Patient identity confirmed: arm band and patient Staffing Anesthesiologist: Judy Kraft MD Resident: Hoang Garrison MD Performed by: resident and anesthesiologist Indications and Patient Condition Indications for airway management: anesthesia Preoxygenated: yes anesthesia circuit Patient position: sniffing Method: asleep Cricoid Pressure: No Difficult Mask: No Final Airway Details Final airway type: endotracheal airway Final Endotracheal Airway: ETT Cuffed: yes Successful intubation technique: video laryngoscopy Devices used: Wingz Endotracheal tube insertion site: oral Blade: Nasima Blade size: #4 ETT size (mm): 8.0 Measured from: lips Measurement (cm): 23 Placement verified by: chest auscultation and capnometry Cormack-Lehane Classification: grade I - full view of glottis Number of attempts at approach: 1 Failed airway: no Unrecognized esophageal intubation: no Airway not difficult Comments I was present for this procedure. Judy Oneal MD us Judy Oneal MD ANESTHESIA ORDERABLES Edite d Result - Final * US GUIDANCE FOR VASCULAR ACCESS (POC) FOR [place] USE ONLY (09/09/2024 8:00 AM EDT) 09/09/2024 8:00 AM EDT Jaylin Daly MD IMAGES Final Resul t [facility] * XR CHEST 1V FRONTAL PORT (09/08/2024 6:34 PM EDT) Anatomical Region Laterality Modality Chest Radiographic Lisa ging 09/08/2024 6:34 PM EDT Impressions 09/08/2024 7:38 PM EDT IMPRESSION: See result. Telegrapher Agent: SRINI Transcribe Date/Time: Sep 08 2024 7:33P Dictated by : NOLA RAMIREZ MD This examination was interpreted and the report reviewed and electronically signed by: NOLA RAMIREZ MD on Sep 08 2024 7:35PM EST Narrative 09/08/2024 7:38 PM EDT * * *Final Report* * * DATE OF EXAM: Sep 08 2024 6:34PM DESIRAE 5376 - XR CHEST 1V FRONTAL PORT / PROCEDURE REASON: Shortness of breath * * * * Physician Interpretation * * * * EXAMINATION: CHEST RADIOGRAPH (PORTABLE SINGLE VIEW AP) Exam Date/Time: 09/08/2024 6:34 PM Clinical History: Shortness of breath MQ: XCPMC_6 Comparison: Four days prior RESULT: Lines, tubes, and devices: None. Lungs and pleura: Large right pleural effusion and associated dense atelectasis likely present. There is right upper lobe aeration redemonstrated. No new left lung consolidation. Focal left lateral basilar atelectasis. Cardiomediastinal silhouette: Right cardiomediastinal silhouette is mostly silhouetted out. Atherosclerotic calcifications of the aorta. Other: Skinfold shadow is likely overlying right hemithorax. . Procedure Note Provider, [facility] [place] - 09/08/2024 * * *Final Report* * * DATE OF EXAM: Sep 08 2024 6:34PM DESIRAE 5376 - XR CHEST 1V FRONTAL PORT / PROCEDURE REASON: Shortness of breath * * * * Physician Interpretation * * * * EXAMINATION: CHEST RADIOGRAPH (PORTABLE SINGLE VIEW AP) Exam Date/Time: 09/08/2024 6:34 PM Clinical History: Shortness of breath MQ: XCPMC_6 Comparison: Four days prior RESULT: Lines, tubes, and devices: None. Lungs and pleura: Large right pleural effusion and associated dense atelectasis likely present. There is right upper lobe aeration redemonstrated. No new left lung consolidation. Focal left lateral basilar atelectasis. Cardiomediastinal silhouette: Right cardiomediastinal silhouette is mostly silhouetted out. Atherosclerotic calcifications of the aorta. Other: Skinfold shadow is likely overlying right hemithorax. . IMPRESSION IMPRESSION: See result. Telegrapher Agent: SRINI Transcribe Date/Time: Sep 08 2024 7:33P Dictated by : NOLA RAMIREZ MD This examination was interpreted and the report reviewed and electronically signed by: NOLA RAMIREZ MD on Sep 08 2024 7:35PM EST Jaylin Daly MD [facility] Final Resul t * COVID & INFLUENZA A/B & RSV PCR, EXPEDITED (09/08/2024 4:50 PM EDT) SARS-CoV-2 (Agent of COVID-19) RNA Not detected See comment [facility] COVID19 09/08/2024 6:09 PM EDT [facility] Influenza A RNA Not detected Not Detected [facility] [employer] COVID19 09/08/2024 6:09 PM EDT [facility] Influenza B RNA Not detected Not Detected [facility] [employer] COVID19 09/08/2024 6:09 PM EDT [facility] Respiratory syncytial virus (RSV) RNA Not detected Not Detected [facility] [employer] COVID19 09/08/2024 6:09 PM EDT [facility] Swab NASOPHARYNGEAL SWAB / Unknown Non Blood / Unknown 09/08/2024 4:50 PM EDT 09/08/2024 5:00 PM EDT Narrative [facility] - 09/08/2024 6:09 PM EDT Reference Range (the expected result in uninfected individuals): Not detected us Jaylin Daly MD MICROBIOLOGY Final Resul t [facility] [address] [address], [place] * ECG COMPLETE (09/08/2024 3:14 PM EDT) Ventricular Rate 74 BPM [facility] Atrial Rate 74 BPM [facility] P-R Interval 156 ms [facility] QRS Duration 98 ms [facility] QT Interval 420 ms [facility] QTC Calculation (Bazett) 466 ms [facility] Calculated P [place] 39 degrees [facility] Calculated R [place] 64 degrees [facility] Calculated T [place] 33 degrees [facility] 09/08/2024 3:14 PM EDT Impressions [facility] - 10/01/2024 11:21 AM EDT SINUS RHYTHM WITH PREMATURE ATRIAL COMPLEXES OTHERWISE NORMAL ECG Confirmed by LUKE BARNES MD ([id number]) on 10/01/2024 11:21:21 AM Narrative [facility] - 10/01/2024 11:21 AM EDT NAME : CHARLES BLANDON PID : [id number] : 1955 Gender : Male Race : ORD : [id number] Procedure Date : Sep 08 2024 15:14:27 Edit Date : Oct 01 2024 11:21:25 Diagnosis: SINUS RHYTHM WITH PREMATURE ATRIAL COMPLEXES OTHERWISE NORMAL ECG Confirmed by LUKE BARNES MD ([id number]) on 10/01/2024 11:21:21 AM Test Reason : Pre-OP Location : 80 : G100 G100-5 Overread By : LUKE BARNES MD Edited By : LUKE BARNES MD Referred By : , Acquired by : TYLER BANERJEE us Jaylin Daly MD EKG Final Resul t [facility] [address] [place] [address] * HIV 1/2 COMBO WITH REFLEX TO DIFFERENTIATION (09/08/2024 2:44 PM EDT) HIV 12 Combo (Ag/Ab) Nonreactive Nonreactive 09/09/2024 11:53 AM EDT [facility] HIV-1/2 AB (Confirmatory) 09/09/2024 11:53 AM EDT [facility] Comment:Test not indicated. HIV Interpretation 09/09/2024 11:53 AM EDT [facility] Comment: No evidence of HIV-1 or HIV-2 infection. Should recent infection be suspected, repeat testing may be considered 2-3 weeks after this draw. [place] Rev. Code 3701.243(E): This information has been disclosed to you from confidential records protected from disclosure by state law. You shall make no further disclosure of this information without the specific, written, and informed release of the individual to whom it pertains or as otherwise permitted by state law. A general authorization for the release of medical or other information is not sufficient for the purpose of the release of HIV test results or diagnoses. Blood BLOOD SPECIMEN / Unknown Venipuncture / Unknown 09/08/2024 2:44 PM EDT 09/08/2024 2:52 PM EDT Jaylin Daly MD LABORATORY Final Resul t Performing Organization Address City/[facility]/ZIP Co de Phone Number [facility] [address] [place] [address], [place] * LIVER REC DEC DNR XM (09/08/2024 2:44 PM EDT) Results to Follow See Allogen report to follow 09/15/2024 3:01 PM EDT [facility] Blood BLOOD SPECIMEN / Unknown Venipuncture / Unknown 09/08/2024 2:44 PM EDT 09/08/2024 2:51 PM EDT Jaylin Daly MD ALLOGEN Final Resul t Performing Organization Address City/[facility]/ZIP Co de Phone Number [facility] [address] [place] [address], [place] * HEPATITIS B SURFACE ANTIGEN (09/08/2024 2:44 PM EDT) HBsAg Negative Negative 09/10/2024 11:10 AM EDT [facility] Blood BLOOD SPECIMEN / Unknown Venipuncture / Unknown 09/08/2024 2:44 PM EDT 09/08/2024 2:52 PM EDT Jaylin Daly MD LABORATORY Final Resul t Performing Organization Address [facility] Co de Phone Number [facility] [address] [place] [address], [place] * HEPATITIS B SURFACE ANTIBODY (09/08/2024 2:44 PM EDT) Hep B Surface Ab, Qual Positive 09/09/2024 11:53 AM EDT [facility] Comment:Consistent with sero logical evidence of immunity to Hepatitis B Virus. Hep B Surface Ab Quant 590.75 mIU/mL 09/09/2024 11:53 AM EDT [facility] Comment: <8 mIU/mL: No serological evidence of immunity to Hepatitis B Virus. >/= 8 to <12 mIU/mL: No serological evidence of immunity to Hepatitis B Virus. >/= 12 mIU/mL: Consistent with serological evidence of immunity to Hepatitis B Virus. Blood BLOOD SPECIMEN / Unknown Venipuncture / Unknown 09/08/2024 2:44 PM EDT 09/08/2024 2:52 PM EDT Jaylin Daly MD LABORATORY Final Resul t Performing Organization Address [facility] Co de Phone Number [facility] [address] [place] [address], [place] * HEPATITIS B CORE ANTIBODY TOTAL (09/08/2024 2:44 PM EDT) Hepatitis B Core Ab, Total Negative Negative 09/09/2024 11:56 AM EDT [facility] Comment:No evidence of curre nt or past infection with Hepatitis B virus. Should recent infection be suspected, repeat testing may be considered 3-4 weeks after this draw. Blood BLOOD SPECIMEN / Unknown Venipuncture / Unknown 09/08/2024 2:44 PM EDT 09/08/2024 2:52 PM EDT Jaylin Daly MD LABORATORY Final Resul t Performing Organization Address [facility] Co de Phone Number [facility] [address] [place] [address], * CMV IGG ANTIBODY BL (09/08/2024 2:44 PM EDT) CMV IgG Qualitative Negative Negative 09/10/2024 3:48 PM EDT [facility] Comment:No serological evide nce of past exposure to Cytomegalovirus. Cannot exclude recent infection if the specimen collected within 4-6 weeks after infection. CMV Antibody, IgG <0.20 U/mL 09/10/2024 3:48 PM EDT [facility] Comment: The magnitude of the measured result is not indicative of the amount of antibody present. U/mL values are interpreted as follows: Negative <0.6 Equivocal 0.6 to <0.70 Positive >=0.70 Blood BLOOD SPECIMEN / Unknown Venipuncture / Unknown 09/08/2024 2:44 PM EDT 09/08/2024 2:52 PM EDT Jaylin Daly MD LABORATORY Final Resul t Performing Organization Address [facility] Co de Phone Number [facility] [address] [place] [address], * HEPATITIS C ANTIBODY IA WITH CONFIRMATION (09/08/2024 2:44 PM EDT) Hep C Antibody IA Negative Negative 09/09/2024 11:58 AM EDT [facility] Comment:The result suggests no evidence of infection with Hepatitis C virus. Should recent infection be suspected, repeat testing may be considered 4-6 weeks after this draw. Blood BLOOD SPECIMEN / Unknown Venipuncture / Unknown 09/08/2024 2:44 PM EDT 09/08/2024 2:52 PM EDT Jaylin Daly MD LABORATORY Final Resul t [facility] [address] [place] [id number], * FROZEN PLASMA, ADULT (09/08/2024 2:30 PM EDT) Product Code I6122K50 CC [facility] BLOOD B[facility] Product Identification FFP CC MAIN BLOOD B[facility] Status Information Returned C C MAIN BLOOD BANK Product Expiration Date 09/11/2024 23:59 CC [facility]LOOD [facility] Unit Number [id number] CC M AIN BLOOD BANK Unit Blood Type O Pos CC M AIN BLOOD BANK Product Code [id number] CC MAIN BLOOD BANK Product Identification FFP CC MAIN BLOOD BANK Status Information Transfused CC MAIN BLOOD BANK Product Expiration Date 09/11/2024 23:59 CC MAIN BLOOD BANK Unit Number [id number] CC M AIN BLOOD BANK Unit Blood Type O Pos CC M AIN BLOOD BANK Product Code [id number] CC MAIN BLOOD BANK Product Identification FFP CC MAIN BLOOD BANK Status Information Transfused CC MAIN BLOOD BANK Product Expiration Date 09/11/2024 23:59 CC MAIN BLOOD BANK Unit Number [id number] CC M AIN BLOOD BANK Unit Blood Type O Pos CC M AIN BLOOD BANK Product Code [id number] CC MAIN BLOOD BANK Product Identification FFP CC MAIN BLOOD BANK Status Information Returned C C MAIN BLOOD BANK Product Expiration Date 09/11/2024 23:59 CC MAIN BLOOD BANK Unit Number [id number] CC M AIN BLOOD BANK Unit Blood Type O Pos CC M AIN BLOOD BANK Product Code [id number] CC MAIN BLOOD BANK Product Identification FFP CC MAIN BLOOD BANK Status Information Transfused CC MAIN BLOOD BANK Product Expiration Date 09/11/2024 23:59 CC MAIN BLOOD BANK Unit Number [id number] CC M AIN BLOOD BANK Unit Blood Type O Pos CC M AIN BLOOD BANK Issue Date/Time 09/09/2024 07:50 CC MAIN BLOOD BANK Issue Date/Time 09/09/2024 07:50 CC MAIN BLOOD BANK Issue Date/Time 09/09/2024 07:50 CC MAIN BLOOD BANK Issue Date/Time 09/09/2024 07:50 CC MAIN BLOOD BANK Issue Date/Time 09/09/2024 07:50 CC MAIN BLOOD BANK Blood BLOOD SPECIMEN / Unknown 09/08/2024 2:30 PM EDT Jaylin Daly MD BLOOD PRODUCTS Final Resul t Performing Organization Address [facility] Co de Phone Number [facility] [address] [place] [address], [place] * (ABNORMAL) CYSTATIN C (09/07/2024 1:36 PM EDT) Only the most recent of2 resultswithin the time period is included. Cystatin C 1.78(H) 0.61 - 0.95 mg/L 09/07/2024 6:24 PM EDT [facility] Cystatin C eGFR 35(L) >=60 mL/min/1.7 3m 09/07/2024 6:24 PM EDT [facility] Comment:Estimated Glomerular Filtration Rate (eGFR) is calculated using the 2012 CKD-EPI cystatin C equation. This equation utilizes serum cystatin C, sex, and age as parameters. The cystatin C assay has traceable calibration to the ERM-DA471/IF reference material. Refer to KDIGO guidelines for clinical interpretation. In patients with unstable renal function, e.g. those with acute kidney injury, the eGFR may not accurately reflect actual GFR. Blood BLOOD SPECIMEN / Unknown Venipuncture / Unknown 09/07/2024 1:36 PM EDT 09/07/2024 1:45 PM EDT us Jeanne Travis MD LABORATORY Final R esult Performing Organization Address City/[facility]/ZIP Co de Phone Number [facility] [address] [phone], [place] * (ABNORMAL) URINALYSIS (WITH MICROSCOPIC) WITH CULTURE IF INDICATED (09/07/2024 12:00 PM EDT) Only the most recent of3 resultswithin the time period is included. Color Yellow Yellow 09/07/2024 3:06 PM EDT [facility] Clarity Clear Clear 09/07/2024 3:06 PM EDT [facility] Glucose, Urine Negative Negative 09/07/2024 3:06 PM EDT [facility] Bilirubin, Urine Negative Negative 09/08/19 3:06 PM EDT [facility] Ketones, Urine Negative Negative 09/07/2024 3:06 PM EDT [facility] Specific [place], Ur 1.011 1.005 - 1.030 09/07/2024 3:06 PM EDT [facility] Hemoglobin/Blood ,Ur Negative Negative 09/07/2024 3:06 PM EDT [facility] pH, Urine 6.0 <8.5 09/07/2024 3:06 PM EDT [facility] Protein, Urine Negative Negative 09/07/2024 3:06 PM EDT [facility] Urobilinogen 1.0 EU/dL 0.2-1.0 EU/dL 09/07/2024 3:06 PM EDT [facility] Nitrites Negative Negative 09/07/2024 3:06 PM EDT [facility] Leuk Esterase Negative Negative 09/07/2024 3:06 PM EDT [facility] WBC, Urine 0-5 /HPF 0-5 /HPF 09/07/2024 3:06 PM EDT [facility] RBC, Urine 0-2 /HPF 0-2 /HPF 09/07/2024 3:06 PM EDT [facility] Bacteria Negative Negative /HPF 09/07/2024 3:06 PM EDT [facility] Squamous Epithelial Cells None Seen /HPF 09/07/2024 3:06 PM EDT [facility] Casts, Hyaline 1-3 /LPF(A) 0 /LPF 3:06 PM EDT [facility] Urine MID-STREAM URINE SPECIMEN / Unknown Non Blood / Unknown 09/07/2024 12:00 PM EDT 09/07/2024 12:12 PM EDT [facility] - 09/07/2024 3:06 PM EDT This test was developed and its performance characteristics determined by [facility]'s [facility] [place] ([facility]). It has not been cleared or approved by the FDA. [facility] is regulated under CLIA as qualified to perform high-complexity testing. This test is used for clinical purposes. It should not be regarded as investigational or for research. Jeanne Travis MD LABORATORY Final R esult Performing Organization Address [facility] Co de Phone Number [facility] [address] [address], [place] * UREA NITROGEN, RANDOM URINE (09/07/2024 12:00 PM EDT) Urea Nitrogen, Urine 538 140 - 1,500 mg/dL 09/07/2024 4:26 PM EDT [facility] Urine URINE SPECIMEN / Unknown Non Blood / Unknown 09/07/2024 12:00 PM EDT 09/07/2024 12:13 PM EDT Jeanne Travis MD LABORATORY Final R esult Performing Organization Address [facility] Co de Phone Number [facility] [address] [address], [place] * CREATININE RANDOM URINE (09/07/2024 12:00 PM EDT) Creatinine, Ur Random (UCRR) 49.6 20.0 - 300.0 mg/dL 09/07/2024 4:09 PM EDT [facility] Urine URINE SPECIMEN / Unknown Non Blood / Unknown 09/07/2024 12:00 PM EDT 09/07/2024 12:13 PM EDT Jeanne Travis MD LABORATORY Final R esult Performing Organization Address [facility] Co de Phone Number [facility] [address] [address], [place] * XR ABDOMEN 1V SUPINE (09/06/2024 2:20 PM EDT) Anatomical Region Laterality Modality Abdomen Radiographic Lisa ging 09/06/2024 12:4 3 PM EDT Impressions 09/06/2024 3:11 PM EDT IMPRESSION: Lines, tubes, and devices: Multiple overlying cardiac monitoring leads. Bowel: No air-fluid levels or subdiaphragmatic gas to suggest free air/perforation.No dilated bowel. No colonic dilation. Other: Degenerative changes of the spine. Telegrapher Agent: SRINI Transcribe Date/Time: Sep 06 2024 2:24P Dictated by : LORA PADGETT MD This examination was interpreted and the report reviewed and electronically signed by: RIGO DICKINSON MD on Sep 06 2024 3:09PM EST Narrative 09/06/2024 3:11 PM EDT * * *Final Report* * * DATE OF EXAM: Sep 06 2024 12:43PM DESIRAE 5289 - XR ABDOMEN 1V SUPINE / PROCEDURE REASON: Assess for free air/bowel perforation * * * * Physician Interpretation * * * * ABDOMINAL X-RAY, 1 VIEW. CLINICAL INFORMATION: Assess for free air/bowel perforation CURRENT STUDY: 09/06/2024 12:43 PM COMPARISON: 09/05/2024 TECHNIQUE: Upright abdomen, 1 image(s). RESULT: See impression. Procedure Note Provider, [facility] - 09/06/2024 * * *Final Report* * * DATE OF EXAM: Sep 06 2024 12:43PM DESIRAE 5289 - XR ABDOMEN 1V SUPINE / PROCEDURE REASON: Assess for free air/bowel perforation * * * * Physician Interpretation * * * * ABDOMINAL X-RAY, 1 VIEW. CLINICAL INFORMATION: Assess for free air/bowel perforation CURRENT STUDY: 09/06/2024 12:43 PM COMPARISON: 09/05/2024 TECHNIQUE: Upright abdomen, 1 image(s). RESULT: See impression. IMPRESSION IMPRESSION: Lines, tubes, and devices: Multiple overlying cardiac monitoring leads. Bowel: No air-fluid levels or subdiaphragmatic gas to suggest free air/perforation.No dilated bowel. No colonic dilation. Other: Degenerative changes of the spine. Telegrapher Agent: SRINI Transcribe Date/Time: Sep 06 2024 2:24P Dictated by : LORA PADGETT MD This examination was interpreted and the report reviewed and electronically signed by: RIGO DICKINSON MD on Sep 06 2024 3:09PM EST Jeanne Travis MD [facility] Final R esult * PARACENTESIS/GASTRO (09/06/2024 12:45 PM EDT) Narrative Kathy Vaughn APRN.CNP - 09/06/2024 12:45 PM EDT Name: Charles Blandon Patient presents for a Paracentesis. Indication for Procedure: Ascites INFORMED CONSENT Charles Blandon Medical Record: [id number] Procedure: Paracentesis The risks, benefits and anticipated outcomes of the procedure, the risks and benefits of the alternatives to the procedure and the roles and tasks of the personnel to be involved were discussed with the patient and the patient consents to the procedure and agrees to proceed. I have verified that consent has been obtained for this procedure. Kathy Vaughn APRN.CNP September 06, 2024 12:43 PM Dept of [facility] G100 UNIVERSAL PROTOCOL / SAFETY CHECKLIST Procedure to be performed: Paracentesis Sign in Communication: Completed Time Out: Team Confirms the Correct Patient, Correct Procedure, Correct Site and Site Marking, Correct Position (if applicable), Prep and Dry Time (if applicable). Time: See Nursing Documentation Affirmation of Time Out: YES Sign Out Discussion: Completed Kathy Vaughn APRN.CNP Procedure performed by Kathy Vaughn APRN.CNP Medication: 2% Lidocaine 5cc At the bedside, the patient was placed in the supine position. A pocket of fluid suitable for paracentesis was marked in the left abdomen under ultrasound guidance. The skin and subcutaneous tissue was anesthetized with local anesthetic. A 22g Angiocath was inserted into the abdomen and 30mL were removed. The fluid was sent to the Lab for analysis. There were no immediate complications associated with the procedure. Kathy Vaughn APRN.CNP us Jeanne Travis MD GASTRO Final R esult * US PARACENTESIS (POC) [facility]DI USE ONLY (09/06/2024 12:08 PM EDT) 09/06/2024 12:0 8 PM EDT us Kathy Zangmeister COLLAR POINTER.SPORTS EQUIPMENT REPAIRER IMAGES Fin al Result [facility] * XR ABDOMEN 1V SUPINE (09/05/2024 11:26 PM EDT) Anatomical Region Laterality Modality Abdomen Radiographic Lisa ging 09/05/2024 11:0 9 PM EDT Impressions 09/06/2024 7:49 AM EDT IMPRESSION: Mild distention of gas and debris-filled stomach. No dilated loops of bowel. Degenerative changes of the spine. Cholecystectomy clips. Left lower quadrant endoscopy clip. Telegrapher Agent: [facility]ITAL[facility]ricia Transcribe Date/Time: Sep 06 2024 7:18A Dictated by : BARBY ONEILL This examination was interpreted and the report reviewed and electronically signed by: MIGUEL DAILEY MD on Sep 06 2024 7:47AM EST Narrative 09/06/2024 7:49 AM EDT * * *Final Report* * * DATE OF EXAM: Sep 05 2024 11:09PM DESIRAE 5289 - XR ABDOMEN 1V SUPINE / PROCEDURE REASON: Abdominal distension * * * * Physician Interpretation * * * * ABDOMEN PORTABLE 09/05/2024 11:09 PM HISTORY: Abdominal distention. TECHNIQUE: Single View, Supine Abdomen; Number of Images: 2 with additional postprocessing COMPARISON: Abdominal radiograph 08/27/2024 RESULT: See impression. Procedure Note Provider, [facility] [place] - 09/06/2024 * * *Final Report* * * DATE OF EXAM: Sep 05 2024 11:09PM DESIRAE 5289 - XR ABDOMEN 1V SUPINE / PROCEDURE REASON: Abdominal distension * * * * Physician Interpretation * * * * ABDOMEN PORTABLE 09/05/2024 11:09 PM HISTORY: Abdominal distention. TECHNIQUE: Single View, Supine Abdomen; Number of Images: 2 with additional postprocessing COMPARISON: Abdominal radiograph 08/27/2024 RESULT: See impression. IMPRESSION IMPRESSION: Mild distention of gas and debris-filled stomach. No dilated loops of bowel. Degenerative changes of the spine. Cholecystectomy clips. Left lower quadrant endoscopy clip. Telegrapher Agent: [facility] Transcribe Date/Time: Sep 06 2024 7:18A Dictated by : KATHY PIPOLY, RRA This examination was interpreted and the report reviewed and electronically signed by: MIGUEL DAILEY MD on Sep 06 2024 7:47AM EST Mickey Davenport MD RAD-PAMA Final Result * XR CHEST 1V FRONTAL PORT (09/04/2024 6:22 PM EDT) Anatomical Region Laterality Modality Chest Radiographic Lisa ging 09/04/2024 6:20 PM EDT Impressions 09/04/2024 11:36 PM EDT IMPRESSION: See result. Telegrapher Agent: PSCB Transcribe Date/Time: Sep 04 2024 11:33P Dictated by : PILLO BUI MD This examination was interpreted and the report reviewed and electronically signed by: PILLO BUI MD on Sep 04 2024 11:34PM EST Narrative 09/04/2024 11:36 PM EDT * * *Final Report* * * DATE OF EXAM: Sep 04 2024 6:20PM DESIRAE 5376 - XR CHEST 1V FRONTAL PORT / PROCEDURE REASON: Shortness of breath * * * * Physician Interpretation * * * * EXAMINATION: CHEST RADIOGRAPH (PORTABLE SINGLE VIEW AP) Exam Date/Time: 09/04/2024 6:20 PM Clinical History: Shortness of breath MQ: XCPMC_6 Comparison: 08/27/2024 RESULT: Lines, tubes, and devices: None. Lungs and pleura: Mild increase and/or shift of large right pleural effusion and mild increase of partial collapse of the right lung. Mild improvement of left basilar atelectasis. There is blunting of the left CP angle which may represent tiny effusion or pleural thickening. Cardiomediastinal silhouette: Stable cardiomediastinal silhouette. Other: . Procedure Note Provider, [facility] [place] - 09/04/2024 * * *Final Report* * * DATE OF EXAM: Sep 04 2024 6:20PM DESIRAE 5376 - XR CHEST 1V FRONTAL PORT / PROCEDURE REASON: Shortness of breath * * * * Physician Interpretation * * * * EXAMINATION: CHEST RADIOGRAPH (PORTABLE SINGLE VIEW AP) Exam Date/Time: 09/04/2024 6:20 PM Clinical History: Shortness of breath MQ: XCPMC_6 Comparison: 08/27/2024 RESULT: Lines, tubes, and devices: None. Lungs and pleura: Mild increase and/or shift of large right pleural effusion and mild increase of partial collapse of the right lung. Mild improvement of left basilar atelectasis. There is blunting of the left CP angle which may represent tiny effusion or pleural thickening. Cardiomediastinal silhouette: Stable cardiomediastinal silhouette. Other: . IMPRESSION IMPRESSION: See result. Telegrapher Agent: PSC[facility] Transcribe Date/Time: Sep 04 2024 11:33P Dictated by : PILLO BUI MD This examination was interpreted and the report reviewed and electronically signed by: PILLO BUI MD on Sep 04 2024 11:34PM EST us Jeanne Travis MD RAD-PAMA Final R esult * BF STAFF REVIEW (LAB ORDER) (09/04/2024 3:28 PM EDT) BF Pathologist Comments Reviewed by Aarti Li DO, MPH 09/05/2024 7:36 PM EDT [facility] BF Reviewer Reviewed by Aarti Li DO, MPH 09/05/2024 7:36 PM EDT [facility] Sterile Fluid/Body Fluid ABDOMEN / Unknown 09/04/2024 3:28 PM EDT 09/04/2024 9:09 PM EDT us Gale Benoit APRN.SPORTS EQUIPMENT REPAIRER LABORATORY Final Resu lt Performing Organization Address [facility]/ZIP Co de Phone Number [facility] [address] [place] [address], * US PARACENTESIS (POC) DDI USE ONLY (09/04/2024 3:17 PM EDT) 09/04/2024 3:17 PM EDT us Gale Benoit APRN.SPORTS EQUIPMENT REPAIRER IMAGES Final Resu lt [facility] * PARACENTESIS/GASTRO (09/04/2024) Gale Ramachandran APRN.CNP - 09/04/2024 Name: Charles Blandon Patient presents for a Paracentesis. Indication for Procedure: Ascites INFORMED CONSENT Charles Blandon Medical Record: [id number] Procedure: Paracentesis The risks, benefits and anticipated outcomes of the procedure, the risks and benefits of the alternatives to the procedure and the roles and tasks of the personnel to be involved were discussed with the patient and the patient consents to the procedure and agrees to proceed. I have verified that consent has been obtained for this procedure. Gale Benoit APRN.CNP September 04, 2024 4:13 PM Dept of [facility] G100 UNIVERSAL PROTOCOL / SAFETY CHECKLIST Procedure to be performed: Paracentesis Sign in Communication: Completed Time Out: Team Confirms the Correct Patient, Correct Procedure, Correct Site and Site Marking, Correct Position (if applicable), Prep and Dry Time (if applicable). Time: See Nursing Documentation Affirmation of Time Out: N/A Sign Out Discussion: Completed Gale Benoit APRN.CNP Procedure performed by Gale Benoit APRN.CNP Medication: 2% Lidocaine 10cc The patient was placed in the supine position. A pocket of fluid suitable for paracentesis was marked in the right abdomen under ultrasound guidance. The skin and subcutaneous tissue was anesthetized with local anesthetic. A 15 guage Richards Needle was inserted into the abdomen and 6.4 liters were removed. The fluid was sent to the Lab for analysis. There were no immediate complications associated with the procedure. Gale Benoit APRN.CNP us Jeanne Travis MD GASTRO Final R esult * MRI LIVER WO/W IVCON (09/02/2024 3:02 PM EDT) Anatomical Region Laterality Modality Abdomen Magnetic Resonan ce 09/02/2024 3:02 PM EDT Impressions 09/02/2024 4:23 PM EDT IMPRESSION: Cirrhosis with sequela of portal hypertension. Stable 1.0 cm segment VIII lesion, previously characterized as LR [address] Note that the current MR does not meet LI-RADS diagnostic criteria due to early arterial phase and significant motion artifacts. CT liver is probably a better study for surveillance imaging in this patient. Telegrapher Agent: SRINI Transcribe Date/Time: Sep 02 2024 3:15P Dictated by : CAMILA CHRISTOPHER DO This examination was interpreted and the report reviewed and electronically signed by: KISHA ANDRADE MD on Sep 02 2024 4:21PM EST Narrative 09/02/2024 4:23 PM EDT * * *Final Report* * * DATE OF EXAM: Sep 02 2024 3:02PM QBM 0727 - MRI LIVER WO/W IVCON / PROCEDURE REASON: Liver lesion, > 1cm * * * * Physician Interpretation * * * * MRI OF THE ABDOMEN (LIVER) WITHOUT AND WITH IV CONTRAST HISTORY: Liver transplant evaluation. 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 TECHNIQUE: Magnet: 1.5T scanner. Multiplanar MRI of the abdomen with multiple sequences, performed before and after intravenous contrast. Contrast: IV: 8.3 ml of Elucirem COMPARISON: MRI 08/29/2024, CT liver 04/29/2024 RESULT: Limitations: motion artifacts, arterial phase is too early Liver: Cirrhotic liver morphology. Lesions: 1 Location: Segment VIII Size: 1.0 cm (23:11), Prior size: 1.0 cm Arterial Phase Hyperenhancement (APHE): Possibly present (18:11) (evaluation compromised by motion artifacts and early phase of contrast bolus), but shown on prior CT. Wash-out: Suspected (21:11) Enhancing Capsule: No or equivocal Threshold growth (50% or more growth in 6 months or less): No LI-RADS Category: Previously LR-5/OPTN class 5 (definitely HCC) by diagnostic CT. No new LI-RADS 5, OPTN class 5 or suspicious lesion. Biliary: No bile duct dilation. Gallbladder is absent. Spleen: 11 cm (craniocaudally), normal. No mass. Pancreas: No mass or duct dilation. Adrenals: No mass. Kidneys: Benign cysts. No solid mass. No hydronephrosis. GI tract: No dilation or wall thickening. Lymph nodes: No abdominal lymphadenopathy. Mesentery/Peritoneum: Small to moderate volume ascites decreased from prior (interval paracentesis). No mass. Vasculature: - Abdominal aorta: Patent. No aneurysm. - Portal venous system (SMV, splenic vein, portal vein and branches): Patent. - Celiac and SMA: Patent. No stenosis. - Hepatic artery: Patent. Accessory left hepatic artery arising from the left gastric. - Hepatic veins: Patent. - Collaterals: Spontaneous splenorenal shunt: Absent Recanalized paraumbilical vein: Small Esophageal varices: Small Mesenteric portosystemic collaterals: Present Bones/Soft Tissues: Severe T12 compression deformity, similar prior. T10 vertebral body lesion (24:12), similar to prior Lower thorax: Large volume right pleural effusion with complete collapse of right lower and middle lobes, similar prior. Procedure Note Provider, [facility] [place] - 09/02/2024 * * *Final Report* * * DATE OF EXAM: Sep 02 2024 3:02PM QBM 0727 - MRI LIVER WO/W IVCON / PROCEDURE REASON: Liver lesion, > 1cm * * * * Physician Interpretation * * * * MRI OF THE ABDOMEN (LIVER) WITHOUT AND WITH IV CONTRAST HISTORY: Liver transplant evaluation. 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 TECHNIQUE: Magnet: 1.5T scanner. Multiplanar MRI of the abdomen with multiple sequences, performed before and after intravenous contrast. Contrast: IV: 8.3 ml of Elucirem COMPARISON: MRI 08/29/2024, CT liver 04/29/2024 RESULT: Limitations: motion artifacts, arterial phase is too early Liver: Cirrhotic liver morphology. Lesions: 1 Location: Segment VIII Size: 1.0 cm (23:11), Prior size: 1.0 cm Arterial Phase Hyperenhancement (APHE): Possibly present (18:11) (evaluation compromised by motion artifacts and early phase of contrast bolus), but shown on prior CT. Wash-out: Suspected (21:11) Enhancing Capsule: No or equivocal Threshold growth (50% or more growth in 6 months or less): No LI-RADS Category: Previously LR-5/OPTN class 5 (definitely HCC) by diagnostic CT. No new LI-RADS 5, OPTN class 5 or suspicious lesion. Biliary: No bile duct dilation. Gallbladder is absent. Spleen: 11 cm (craniocaudally), normal. No mass. Pancreas: No mass or duct dilation. Adrenals: No mass. Kidneys: Benign cysts. No solid mass. No hydronephrosis. GI tract: No dilation or wall thickening. Lymph nodes: No abdominal lymphadenopathy. Mesentery/Peritoneum: Small to moderate volume ascites decreased from prior (interval paracentesis). No mass. Vasculature: - Abdominal aorta: Patent. No aneurysm. - Portal venous system (SMV, splenic vein, portal vein and branches): Patent. - Celiac and SMA: Patent. No stenosis. - Hepatic artery: Patent. Accessory left hepatic artery arising from the left gastric. - Hepatic veins: Patent. - Collaterals: Spontaneous splenorenal shunt: Absent Recanalized paraumbilical vein: Small Esophageal varices: Small Mesenteric portosystemic collaterals: Present Bones/Soft Tissues: Severe T12 compression deformity, similar prior. T10 vertebral body lesion (24:12), similar to prior Lower thorax: Large volume right pleural effusion with complete collapse of right lower and middle lobes, similar prior. IMPRESSION IMPRESSION: Cirrhosis with sequela of portal hypertension. Stable 1.0 cm segment VIII lesion, previously characterized as LR [address] Note that the current MR does not meet LI-RADS diagnostic criteria due to early arterial phase and significant motion artifacts. CT liver is probably a better study for surveillance imaging in thispatient. Telegrapher Agent: PSCB Transcribe Date/Time: Sep 02 2024 3:15P Dictated by : CAMILA CHRISTOPHER, This examination was interpreted and the report reviewed and electronically signed by: KISHA ANDRADE MD on Sep 02 2024 4:21PM EST us Jeanne Travis MD MRI-PAMA Final R esult * SIGMOIDOSCOPY (09/02/2024 11:29 AM EDT) Anatomical Region Laterality Modality Other 09/02/2024 11:2 9 AM EDT Narrative 09/02/2024 11:49 AM EDT Q3 Patient Name: Charles Blandon Procedure Date: 09/02/2024 11:29 AM Date of : 1955 Admit Type: Inpatient Age: 69 Gender: Male Note Status: Finalized Attending MD: Thomas Khan MD, [id number] Procedure: Flexible Sigmoidoscopy Indications: Personal history of colonic polyps Providers: Thomas Khan MD Patient Profile: Refer to note in patient chart for documentation of history and physical. Last Colonoscopy: 1 week ago. Referring Physician: Jeanne Travis MD (Referring MD) Medicines: Propofol per Anesthesia Complications: No immediate complications. Requesting Provider: Procedure: Pre-Anesthesia Assessment: - ASA Grade Assessment: III - A patient with severe systemic disease. After obtaining informed consent, the scope was passed under direct vision. The Endoscope was introduced through the anus and advanced to the descending colon. The flexible sigmoidoscopy was accomplished without difficulty. The patient tolerated the procedure well. The quality of the bowel preparation was adequate. Moderate Sedation: Moderate (conscious) sedation was personally administered by an anesthesia professional. The following parameters were monitored: oxygen saturation, heart rate, blood pressure, and response to care. MAC anesthesia was administered by the anesthesia team. Findings: A 6 mm polyp was found in the descending colon. The polyp was sessile. The polyp was removed with a jumbo cold forceps. Resection and retrieval were complete. To prevent bleeding post-intervention, one hemostatic clip was successfully placed. Impression: - One 6 mm polyp in the descending colon, removed with a jumbo cold forceps. Resected and retrieved. Clip was placed. Estimated Blood Loss: Estimated blood loss: none. Recommendation: - Await pathology results. - Resume previous diet. Procedure Code(s): --- Professional --- 55788 Diagnosis Code(s): --- Professional --- D12.4 Z86.0100 CPT copyright 2020 [employer]. All rights reserved. Attending Participation: I personally performed the entire procedure. Scope In: 11:40:44 AM Scope Out: 11:45:44 AM MD Thomas Oro MD 09/02/2024 11:47:32 AM This report has been signed electronically by Thomas Khan MD Number of Addenda: 0 Note Initiated On: 09/02/2024 11:29 AM Jeanne Travis MD DIGESTIVE DISEASE Final Result * US PARACENTESIS (POC) DDI USE ONLY (09/02/2024 10:40 AM EDT) 09/02/2024 10:4 0 AM EDT Raquel Black PA-C IMAGES Final Result [facility] * PARACENTESIS/GASTRO (09/02/2024) Dionne Raquel Black PA-C - 09/02/2024 Name: Charles Blandon Patient presents for a Paracentesis. Indication for Procedure: Ascites INFORMED CONSENT Charles Blandon Medical Record: [id number] Procedure: Paracentesis The risks, benefits and anticipated outcomes of the procedure, the risks and benefits of the alternatives to the procedure and the roles and tasks of the personnel to be involved were discussed with the patient and the patient consents to the procedure and agrees to proceed. I have verified that consent has been obtained for this procedure. Raquel Black PA-C September 02, 2024 11:43 AM Dept of [facility] G100 UNIVERSAL PROTOCOL / SAFETY CHECKLIST Procedure to be performed: Paracentesis Sign in Communication: Completed Time Out: Team Confirms the Correct Patient, Correct Procedure, Correct Site and Site Marking, Correct Position (if applicable), Prep and Dry Time (if applicable). Time: See Nursing Documentation Affirmation of Time Out: YES Sign Out Discussion: Completed Raquel Black PA-C Procedure performed by Raquel Black PA-C Medication: 2% Lidocaine 10cc The patient was placed in the supine position. A pocket of fluid suitable for paracentesis was marked in the right abdomen under ultrasound guidance. The skin and subcutaneous tissue was anesthetized with local anesthetic. A 15 guage Richards Needle was inserted into the abdomen and 4.8 liters were removed. The fluid was sent to the Lab for analysis. No albumin per protocol. Cell count only per ordering provider. There were no immediate complications associated with the procedure. Raquel Black PA-C us Jeanne Travis MD GASTRO Final R esult * ECG COMPLETE (09/01/2024 2:30 PM EDT) Ventricular Rate 88 BPM [facility] Atrial Rate 88 BPM [facility] P-R Interval 118 ms [facility] QRS Duration 86 ms [facility] QT Interval 396 ms [facility] QTC Calculation (Bazett) 479 ms [facility] Calculated P [place] -11 degrees [facility] Calculated R [place] 43 degrees [facility] [place] Calculated T [place] 24 degrees [facility] [place] 09/01/2024 2:30 PM EDT Impressions [facility] [place] - 09/30/2024 10:51 PM EDT SINUS RHYTHM WITH FREQUENT PREMATURE ATRIAL COMPLEXES IN A PATTERN OF BIGEMINY NONSPECIFIC ST ABNORMALITY ABNORMAL ECG Confirmed by IGNACIO PARDO MD ([id number]) on 09/30/2024 10:51:05 PM Narrative [facility] [place] - 09/30/2024 10:51 PM EDT NAME : CHARLES BLANDON PID : [id number] : 1955 Gender : Male Race : ORD : [id number] Procedure Date : Sep 01 2024 14:30:15 Edit Date : Sep 30 2024 22:51:07 Diagnosis: SINUS RHYTHM WITH FREQUENT PREMATURE ATRIAL COMPLEXES IN A PATTERN OF BIGEMINY NONSPECIFIC ST ABNORMALITY ABNORMAL ECG Confirmed by IGNACIO PARDO MD ([id number]) on 09/30/2024 10:51:05 PM Test Reason : BPX5 Location : 80 : G100 G100-34 Overread By : IGNACIO PARDO MD Edited By : IGNACIO PARDO MD Referred By : , Acquired by : BRITTANY PEREZ us Jeanne Travis MD EKG Final R esult [facility] [place] [address] [id number] * CT CHEST WO IVCON (09/01/2024 10:34 AM EDT) Anatomical Region Laterality Modality Chest Computed Tomogra phy 09/01/2024 10:3 4 AM EDT Impressions 09/01/2024 1:54 PM EDT IMPRESSION: 1. Stable large right pleural effusion and complete collapse of the right lower and middle lobe. 2. No new or enlarging lymph nodes. 3. Unchanged T10 sclerotic lesion, likely osseous metastatic disease. Telegrapher Agent: SRINI Transcribe Date/Time: Sep 01 2024 1:48P Dictated by : ANGELITA LEIGH MD This examination was interpreted and the report reviewed and electronically signed by: ANGELITA LEIGH MD on Sep 01 2024 1:52PM EST Narrative 09/01/2024 1:54 PM EDT * * *Final Report* * * DATE OF EXAM: Sep 01 2024 10:34AM [facility] [place] 0541 - CT CHEST WO IVCON / PROCEDURE REASON: Lung nodule, post chest CT or PET/CT, high suspicion of lung cancer, pre-op imag * * * * Physician Interpretation * * * * EXAMINATION: CHEST CT WITHOUT CONTRAST CLINICAL HISTORY: Lung nodule, post chest CT or PET/CT, high suspicion of lung cancer, pre-op imag Technique: Spiral CT acquisition of the chest from the thoracic inlet to the upper abdomen without contrast. MQ: CTCWO_6 CT Radiation dose: Integrated Dose-length product (DLP) for this visit = 284 mGy*cm CT Dose Reduction Employed: Automated exposure control (AEC) Comparison: Chest CT dated 04/29/2024 RESULT: Limitations: None. Lines, tubes, and devices: None. Lung parenchyma and airways: Partial collapse of the right upper lobe and near total collapse of the right middle and lower lobes. Unchanged 2 mm left upper lobe and superior left lower lobe nodules on image 52. Compressive atelectasis in the left lower lobe. No endotracheal or central endobronchial lesion is identified. Pleural space: Large right, small left pleural effusions. No pneumothorax. Lower neck, lymph nodes, and mediastinum: The imaged thyroid gland is normal. No lymphadenopathy in the supraclavicular, axillary, mediastinal, or hilar regions. The esophagus is unremarkable. Heart, pericardium, and thoracic vessels: The thoracic aorta and main pulmonary artery are normal in caliber. The cardiac chambers are normal in size. Moderate coronary artery atherosclerotic calcifications are noted, although the study is not optimized for coronary assessment. No pericardial effusion or thickening. Mild atherosclerotic calcifications of the thoracic aorta and arch vessels. Bones and soft tissues: Degenerative changes are seen. Unchanged sclerotic lesion at T10 vertebral body. Healed bilateral rib fractures. Upper abdomen: No acute abnormality in the imaged upper abdomen. Localizer images: No additional findings. Procedure Note Provider, [facility] - 09/01/2024 * * *Final Report* * * DATE OF EXAM: Sep 01 2024 10:34AM [facility] [place] 0541 - CT CHEST WO IVCON / PROCEDURE REASON: Lung nodule, post chest CT or PET/CT, high suspicion of lung cancer, pre-op imag * * * * Physician Interpretation * * * * EXAMINATION: CHEST CT WITHOUT CONTRAST CLINICAL HISTORY: Lung nodule, post chest CT or PET/CT, high suspicion of lung cancer, pre-op imag Technique: Spiral CT acquisition of the chest from the thoracic inlet to the upper abdomen without contrast. MQ: CTCWO_6 CT Radiation dose: Integrated Dose-length product (DLP) for this visit = 284 mGy*cm CT Dose Reduction Employed: Automated exposure control (AEC) Comparison: Chest CT dated 04/29/2024 RESULT: Limitations: None. Lines, tubes, and devices: None. Lung parenchyma and airways: Partial collapse of the right upper lobe and near total collapse of the right middle and lower lobes. Unchanged 2 mm left upper lobe and superior left lower lobe nodules on image 52. Compressive atelectasis in the left lower lobe. No endotracheal or central endobronchial lesion is identified. Pleural space: Large right, small left pleural effusions. No pneumothorax. Lower neck, lymph nodes, and mediastinum: The imaged thyroid gland is normal. No lymphadenopathy in the supraclavicular, axillary, mediastinal, or hilar regions. The esophagus is unremarkable. Heart, pericardium, and thoracic vessels: The thoracic aorta and main pulmonary artery are normal in caliber. The cardiac chambers are normal in size. Moderate coronary artery atherosclerotic calcifications are noted, although the study is not optimized for coronary assessment. No pericardial effusion or thickening. Mild atherosclerotic calcifications of the thoracic aorta and arch vessels. Bones and soft tissues: Degenerative changes are seen. Unchanged sclerotic lesion at T10 vertebral body. Healed bilateral rib fractures. Upper abdomen: No acute abnormality in the imaged upper abdomen. Localizer images: No additional findings. IMPRESSION IMPRESSION: 1. Stable large right pleural effusion and complete collapse of the right lower and middle lobe. 2. No new or enlarging lymph nodes. 3. Unchanged T10 sclerotic lesion, likely osseous metastatic disease. Telegrapher Agent: SRINI Transcribe Date/Time: Sep 01 2024 1:48P Dictated by : ANGELITA LEIGH MD This examination was interpreted and the report reviewed and electronically signed by: ANGELITA LEIGH MD on Sep 01 2024 1:52PM EST us Jeanne Travis MD CT-PAMA Final R esult * COLONOSCOPY SCREENING (08/31/2024 8:53 AM EDT) Anatomical Region Laterality Modality Other 08/31/2024 8:53 AM EDT Narrative 08/31/2024 9:26 AM EDT Q3 Patient Name: Charles Blandon Procedure Date: 08/31/2024 8:53 AM Date of : 1955 Admit Type: Inpatient Age: 69 Gender: Male Note Status: Finalized Attending MD: Giana Turner MD, [id number] Procedure: Colonoscopy Indications: High risk colon cancer surveillance: Personal history of colonic polyps Providers: Giana Turner MD Patient Profile: This is a 69 year old male. Refer to note in patient chart for documentation of history and physical. Last Colonoscopy: several years ago. Referring Physician: Richard Robertson MD (Referring MD) Medicines: Monitored Anesthesia Care Complications: No immediate complications. Requesting Provider: Procedure: [...] anticoagulant or antiplatelet agents. ASA Grade Assessment: II - A patient with mild systemic disease. After reviewing the risks and benefits, the patient was deemed in satisfactory condition to undergo the procedure. After I obtained informed consent, the scope was passed under direct vision. Throughout the procedure, the patient's blood pressure, pulse, and oxygen saturations were monitored continuously. The Colonoscope was introduced through the anus and advanced to the cecum, identified by appendiceal orifice and ileocecal valve. The colonoscopy was performed without difficulty. The patient tolerated the procedure well. The quality of the bowel preparation was fair. The ileocecal valve, appendiceal orifice, and rectum were photographed. Moderate Sedation: MAC anesthesia was administered by the anesthesia team. Findings: The perianal and digital rectal examinations were normal. A 5 mm polyp was found in the transverse colon. The polyp was sessile. The polyp was removed with a cold snare. Resection and retrieval were complete. Verification of patient identification for the specimen was done. Estimated blood loss was minimal. Multiple small-mouthed diverticula were found in the sigmoid colon and descending colon. There is a polypoid lesion consistent with inflammatory polyp inside a diverticulum 40 cm from anus. Polypectomy was not performed. Internal hemorrhoids were found during retroflexion. The hemorrhoids were small. A moderate amount of semi-liquid stool was found in the entire colon, interfering with visualization. Lavage of the area was performed using a large amount of sterile water, resulting in incomplete clearance with fair visualization. Impression: - Preparation of the colon was fair. - One 5 mm polyp in the transverse colon, removed with a cold snare. Resected and retrieved. - There is a polypoid lesion consistent with inflammatory polyp inside a diverticulum 40 cm from anus. Polypectomy was not performed. - Diverticulosis in the sigmoid colon and in the descending colon. - Internal hemorrhoids. - Stool in the entire examined colon. Estimated Blood Loss: Estimated blood loss was minimal. Recommendation: - [facility]. - Resume previous diet. - Repeat colonoscopy in 1 year for surveillance. - Await pathology results. - Patient has a contact number available for emergencies. The signs and symptoms of potential delayed complications were discussed with the patient. Return to normal activities tomorrow. Written discharge instructions were provided to the patient. - Continue present medications. Procedure Code(s): --- Professional --- 25980 CPT copyright 2020 [employer]. All rights reserved. Attending Participation: I personally performed the entire procedure. Scope In: 9:04:37 AM Scope Out: 9:18:14 AM MD Giana White MD 08/31/2024 9:24:38 AM This report has been signed electronically by Giana Turner MD Number of Addenda: 0 Note Initiated On: 08/31/2024 8:53 AM Richard Robertson MD DIGESTIVE DISEASE Final Result * EGD DIAGNOSTIC (08/31/2024 8:52 AM EDT) Anatomical Region Laterality Modality Other 08/31/2024 8:52 AM EDT Narrative 08/31/2024 9:05 AM EDT Q3 Patient Name: Charles Blandon Procedure Date: 08/31/2024 8:52 AM Date of : 1955 Admit Type: Inpatient Age: 69 Gender: Male Note Status: Finalized Attending MD: Giana Turner MD, [id number] Procedure: Upper GI endoscopy Indications: Follow-up of esophageal varices Providers: Giana Turner MD Patient Profile: This is a 69 year old male. Refer to note in patient chart for documentation of history and physical. Referring Physician: Richard Robertson MD (Referring MD) Medicines: Monitored Anesthesia Care Complications: No immediate complications. Requesting Provider: Procedure: [...] anticoagulant or antiplatelet agents. ASA Grade Assessment: II - A patient with mild systemic disease. After reviewing the risks and benefits, the patient was deemed in satisfactory condition to undergo the procedure. After obtaining informed consent, the endoscope was passed under direct vision. Throughout the procedure, the patient's blood pressure, pulse, and oxygen saturations were monitored continuously. The Endoscope was introduced through the mouth, and advanced to the second part of duodenum. The upper GI endoscopy was accomplished without difficulty. The patient tolerated the procedure well. Moderate Sedation: MAC anesthesia was administered by the anesthesia team. Findings: The Z-line was regular and was found 40 cm from the incisors. Grade II varices were found in the lower third of the esophagus. They were small in size. Mild portal hypertensive gastropathy was found in the entire examined stomach. The examined duodenum was normal. Impression: - Z-line regular, 40 cm from the incisors. - Grade II esophageal varices. No high risk stigmata. - Portal hypertensive gastropathy. Mild. - Normal examined duodenum. - No specimens collected. Estimated Blood Loss: Estimated blood loss: none. Recommendation: - [facility] to [facility] care. - Resume previous diet. - Patient has a contact number available for emergencies. The signs and symptoms of potential delayed complications were discussed with the patient. Return to normal activities tomorrow. Written discharge instructions were provided to the patient. Procedure Code(s): --- Professional --- 81445 CPT copyright 2020 [employer]. All rights reserved. Attending Participation: I personally performed the entire procedure. Scope In: 8:58:14 AM Scope Out: 9:00:05 AM MD Giana White MD 08/31/2024 9:03:01 AM This report has been signed electronically by Giana Turner MD Number of Addenda: 0 Note Initiated On: 08/31/2024 8:52 AM Richard Robertson MD DIGESTIVE DISEASE Final Result * MRI LIVER WO/W IVCON (08/29/2024 10:02 PM EDT) Anatomical Region Laterality Modality Abdomen Magnetic Resonan ce 08/29/2024 10:0 1 PM EDT Impressions 08/30/2024 9:00 AM EDT IMPRESSION: Cirrhosis with portal hypertension. Known segment VIII LR-5 lesion is not clearly delineated as described. Given the patient's large volume ascites, CT is recommended for follow-ups. Telegrapher Agent: PSC[facility] Transcribe Date/Time: Aug 30 2024 7:36A Dictated by : MIGUEL DAILEY MD This examination was interpreted and the report reviewed and electronically signed by: MIGUEL DAILEY MD on Aug 30 2024 8:58AM EST Narrative 08/30/2024 9:00 AM EDT * * *Final Report* * * DATE OF EXAM: Aug 29 2024 10:01PM [facility] 0727 - MRI LIVER WO/W IVCON / PROCEDURE REASON: OLT eval * * * * Physician Interpretation * * * * MRI OF THE ABDOMEN (LIVER) WITHOUT AND WITH IV CONTRAST HISTORY: Liver transplant evaluation TECHNIQUE: Magnet: 1.5T scanner. Multiplanar MRI of the abdomen with multiple sequences, performed before and after intravenous contrast. Contrast: IV: 8 ml of Elucirem COMPARISON: CT 04/29/2024. Spine MRI 08/24/2024 RESULT: Evaluation is limited secondary to artifacts from motion and large volume ascites. Liver: Cirrhotic liver morphology. Lesions: The known segment VIII LR-5 lesion is not clearly identified, presumably secondary to some combination of the above artifacts and early acquisition of the arterial phase. No new lesion identified. Biliary: No bile duct dilation. Cholecystectomy. Spleen: 10.4 cm (craniocaudally), normal. No mass. Pancreas: No mass or duct dilation. Adrenals: No mass. Kidneys: No solid or cystic mass. No hydronephrosis. GI tract: No dilation. Colonic wall thickening, presumably secondary to portal hypertension. Lymph nodes: No abdominal lymphadenopathy. Mesentery/Peritoneum: Large volume ascites. No mass. Vasculature: - Abdominal aorta: Patent. No aneurysm. - Portal venous system (SMV, splenic vein, portal vein and branches): Patent. - Celiac and SMA: Patent. No stenosis. - Hepatic artery: Patent. Accessory left hepatic artery arising from the left gastric artery. - Hepatic veins: Patent. - Collaterals: Spontaneous splenorenal shunt: Absent Recanalized paraumbilical vein: Small Esophageal varices: Small Mesenteric portosystemic collaterals: Present Bones/Soft Tissues: Stable severe T12 compression deformity. Stable T10 vertebral body lesion (27:4), biopsy-proven hibernoma. Lower thorax: Large right and trace left pleural effusions. Procedure Note Provider, [facility] [place] - 08/30/2024 * * *Final Report* * * DATE OF EXAM: Aug 29 2024 10:01PM [facility] 0727 - MRI LIVER WO/W IVCON / PROCEDURE REASON: OLT eval * * * * Physician Interpretation * * * * MRI OF THE ABDOMEN (LIVER) WITHOUT AND WITH IV CONTRAST HISTORY: Liver transplant evaluation TECHNIQUE: Magnet: 1.5T scanner. Multiplanar MRI of the abdomen with multiple sequences, performed before and after intravenous contrast. Contrast: IV: 8 ml of Elucirem COMPARISON: CT 04/29/2024. Spine MRI 08/24/2024 RESULT: Evaluation is limited secondary to artifacts from motion and large volume ascites. Liver: Cirrhotic liver morphology. Lesions: The known segment VIII LR-5 lesion is not clearly identified, presumably secondary to some combination of the above artifacts and early acquisition of the arterial phase. No new lesion identified. Biliary: No bile duct dilation. Cholecystectomy. Spleen: 10.4 cm (craniocaudally), normal. No mass. Pancreas: No mass or duct dilation. Adrenals: No mass. Kidneys: No solid or cystic mass. No hydronephrosis. GI tract: No dilation. Colonic wall thickening, presumably secondary to portal hypertension. Lymph nodes: No abdominal lymphadenopathy. Mesentery/Peritoneum: Large volume ascites. No mass. Vasculature: - Abdominal aorta: Patent. No aneurysm. - Portal venous system (SMV, splenic vein, portal vein and branches): Patent. - Celiac and SMA: Patent. No stenosis. - Hepatic artery: Patent. Accessory left hepatic artery arising from the left gastric artery. - Hepatic veins: Patent. - Collaterals: Spontaneous splenorenal shunt: Absent Recanalized paraumbilical vein: Small Esophageal varices: Small Mesenteric portosystemic collaterals: Present Bones/Soft Tissues: Stable severe T12 compression deformity. Stable T10 vertebral body lesion (27:4), biopsy-proven hibernoma. Lower thorax: Large right and trace left pleural effusions. IMPRESSION IMPRESSION: Cirrhosis with portal hypertension. Known segment VIII LR-5 lesion is not clearly delineated as described. Given the patient's large volume ascites, CT is recommended for follow-ups. Telegrapher Agent: [facility] Transcribe Date/Time: Aug 30 2024 7:36A Dictated by : MIGUEL DAILEY MD This examination was interpreted and the report reviewed and electronically signed by: MIGUEL DAILEY MD on Aug 30 2024 8:58AM EST Richard Robertson MD MRI-PAMA Final Result * (ABNORMAL) HEPATIC FUNCTION PNL (08/28/2024 10:12 PM EDT) Only the most recent of2 resultswithin the time period is included. Albumin 2.7(L) 3.9 - 4.9 g/dL 08/28/2024 11:22 PM EDT [facility] Bilirubin, Total 1.2 0.2 - 1.3 mg/dL 08/28/2024 11:22 PM EDT [facility] Bilirubin, Direct 025 11:22 PM EDT [facility] Comment:Unable to assay due to interference from hemolysis. Suggest reorder as clinically indicated. Alkaline Phosphatase 126(H) 38 - 113 U/L 08/28/2024 11:22 PM EDT [facility] Comment:Results may be false ly decreased due to interference from hemolysis. Suggest reorder as clinically indicated. AST 77(H) 14 - 40 U/L 08/28/2024 11:22 PM EDT [facility] Comment:Results may be false ly increased due to interference from hemolysis. Suggest reorder as clinically indicated. ALT 29 10 - 54 U/L 08/28/2024 11:22 PM EDT [facility] Comment:Results may be false ly increased due to interference from hemolysis. Suggest reorder as clinically indicated. Protein, Total 6.0(L) 6.3 - 8.0 g/dL 08/28/2024 11:22 PM EDT [facility] Blood BLOOD SPECIMEN / Unknown Venipuncture / Unknown 08/28/2024 10:12 PM EDT 08/28/2024 10:18 PM EDT us Richard Robertson MD LABORATORY Final Result Performing Organization Address [facility]/State/ZIP Co de Phone Number [facility] [address] [place], [place] [address] [place] [address], * [facility] HLA-AB SUM RPT (08/28/2024 8:43 AM EDT) Only the most recent of2 resultswithin the time period is included. 08/28/2024 8:43 AM EDT Narrative OTHER LAB - 08/28/2024 8:43 AM EDT CANCELLED REPORT [facility] [employer] [address] [place] [address] - [facility] [place] [place] [address] ([facility]) CLIA ID# [id number] Order Date: 08/28/2024 Reported Date: 08/29/2024 7:15AM Test Name: Antibody Summary Patient Name: CHARLES BLANDON Report Status: Cancel [facility] Provider [facility] Edited Result - Final Performing Organization Address City/[facility]/ZIP Co de Phone Number OTHER LAB * AMMONIA, ARTERIAL (08/28/2024 12:15 AM EDT) Ammonia, Arterial 35 16 - 60 umol/L 08/28/2024 12:42 AM EDT [facility] Blood BLOOD SPECIMEN / Unknown Venipuncture / Unknown 08/28/2024 12:15 AM EDT 08/28/2024 12:21 AM EDT Richard Robertson MD LABORATORY Final Result Performing Organization Address [facility]/ZIP Co de Phone Number [facility] [address] [place] [address], [place] * LIVER REC INIT W/U (08/27/2024 8:42 PM EDT) Results to Follow See [facility] report to follow 09/03/2024 10:01 PM EDT [facility] Blood BLOOD SPECIMEN / Unknown Venipuncture / Unknown 08/27/2024 8:42 PM EDT 08/27/2024 9:16 PM EDT us Charles Ibrahim MD [facility] Final Result [facility] [place] [address] [place] [id number], [place] * US KIDNEY/BLADDER (08/27/2024 6:17 PM EDT) Anatomical Region Laterality Modality Abdomen Ultrasound 08/27/2024 6:17 PM EDT Impressions 08/27/2024 6:38 PM EDT IMPRESSION: No hydronephrosis. Telegrapher Agent: [employer] Transcribe Date/Time: Aug 27 2024 6:25P Dictated by : TROY COLBERT MD This examination was interpreted and the report reviewed and electronically signed by: LORNA GRAHAM MD on Aug 27 2024 6:36PM EST Narrative 08/27/2024 6:38 PM EDT * * *Final Report* * * DATE OF EXAM: Aug 27 2024 6:17PM [facility] 1055 - US KIDNEY/BLADDER / PROCEDURE REASON: Kidney failure, acute * * * * Physician Interpretation * * * * EXAMINATION: RENAL ULTRASOUND CLINICAL HISTORY: Acute kidney injury TECHNIQUE: Sonography of the kidneys and urinary bladder was performed. Images were obtained and stored in a permanent archive. MQ: UR_1 COMPARISON: CT abdomen/pelvis 04/29/2024 RESULT:- Right Kidney: -Renal length: 10.3 cm -Parenchyma: Normal parenchymal echogenicity. Normal parenchymal thickness. -Collecting system: No hydronephrosis. -Calculus: No echogenic, shadowing calculus. -Lesion: None. Left Kidney: -Renal length: 10.5 cm -Parenchyma: Normal parenchymal echogenicity. Normal parenchymal thickness. -Collecting system: No hydronephrosis. -Calculus: No echogenic, shadowing calculus. -Lesion: None. Bladder: Collapsed with a Sue catheter in place. Other: Moderate volume ascites. Procedure Note Provider, [facility] [place] - 08/27/2024 * * *Final Report* * * DATE OF EXAM: Aug 27 2024 6:17PM [facility] 1055 - US KIDNEY/BLADDER / PROCEDURE REASON: Kidney failure, acute * * * * Physician Interpretation * * * * EXAMINATION: RENAL ULTRASOUND CLINICAL HISTORY: Acute kidney injury TECHNIQUE: Sonography of the kidneys and urinary bladder was performed. Images were obtained and stored in a permanent archive. MQ: UR_1 COMPARISON: CT abdomen/pelvis 04/29/2024 RESULT:- Right Kidney: -Renal length: 10.3 cm -Parenchyma: Normal parenchymal echogenicity. Normal parenchymal thickness. -Collecting system: No hydronephrosis. -Calculus: No echogenic, shadowing calculus. -Lesion: None. Left Kidney: -Renal length: 10.5 cm -Parenchyma: Normal parenchymal echogenicity. Normal parenchymal thickness. -Collecting system: No hydronephrosis. -Calculus: No echogenic, shadowing calculus. -Lesion: None. Bladder: Collapsed with a Sue catheter in place. Other: Moderate volume ascites. IMPRESSION IMPRESSION: No hydronephrosis. Telegrapher Agent: SRINI Transcribe Date/Time: Aug 27 2024 6:25P Dictated by : TROY COLBERT MD This examination was interpreted and the report reviewed and electronically signed by: LORNA GRAHAM MD on Aug 27 2024 6:36PM EST us Richard Robertson MD US-PAMA Final Result * XR ABDOMEN 1V SUPINE (08/27/2024 5:08 PM EDT) Anatomical Region Laterality Modality Abdomen Radiographic Lisa ging 08/27/2024 5:07 PM EDT Impressions 08/27/2024 5:39 PM EDT IMPRESSION: NG/OG tube tip in the gastric body with side-port at the GE junction; this could be further advanced. Cholecystectomy clips. Mild gaseous distention of the stomach. Gas-filled, normal and borderline caliber loops of small bowel. No dilated colon. Degenerative changes of the spine. Telegrapher Agent: [facility] Transcribe Date/Time: Aug 27 2024 5:35P Dictated by : LORNA GRAHAM MD This examination was interpreted and the report reviewed and electronically signed by: LORNA GRAHAM MD on Aug 27 2024 5:37PM EST Narrative 08/27/2024 5:39 PM EDT * * *Final Report* * * DATE OF EXAM: Aug 27 2024 5:07PM [facility] 5289 - XR ABDOMEN 1V SUPINE / PROCEDURE REASON: Evaluate tube, line or lead position * * * * Physician Interpretation * * * * XR ABDOMEN 1V SUPINE HISTORY: Evaluate tube, line or lead position TECHNIQUE: Supine abdomen (1 view), 1 image(s) COMPARISON: None RESULT: See impression. Procedure Note Provider, [facility] - 08/27/2024 * * *Final Report* * * DATE OF EXAM: Aug 27 2024 5:07PM [facility] 5289 - XR ABDOMEN 1V SUPINE / PROCEDURE REASON: Evaluate tube, line or lead position * * * * Physician Interpretation * * * * XR ABDOMEN 1V SUPINE HISTORY: Evaluate tube, line or lead position TECHNIQUE: Supine abdomen (1 view), 1 image(s) COMPARISON: None RESULT: See impression. IMPRESSION IMPRESSION: NG/OG tube tip in the gastric body with side-port at the GE junction; this could be further advanced. Cholecystectomy clips. Mild gaseous distention of the stomach. Gas-filled, normal and borderline caliber loops of small bowel. No dilated colon. Degenerative changes of the spine. [facility]leg[facility] Transcribe Date/Time: Aug 27 2024 5:35P Dictated by : LORNA GRAHAM MD This examination was interpreted and the report reviewed and electronically signed by: LORNA GRAHAM MD on Aug 27 2024 5:37PM EST us Richard Robertson MD RAD-PAMA Final Result * PHOSPHATIDYLETHANOL (PETH) (08/27/2024 3:06 PM EDT) Only the most recent of2 resultswithin the time period is included. PEth 16:0/18:1 (POPEth) <10 ng/mL 08/29/2024 12:13 PM EDT [facility] Comment: PEth 16:0/18:1 (POPEth) Less than 10 ng/mL............Not detected Less than 20 ng/mL............Abstinence or light alcohol consumption 20 - 200 ng/mL................Moderate alcohol consumption Greater than 200 ng/mL........Heavy alcohol consumption or chronic alcohol use (Reference: Mildred Smith and Serena Larsen 2018 J. Forensic Sci) PEth 16:0/18.2 (PLPEth) <10 ng/mL 08/29/2024 12:13 PM EDT [facility] Comment:Reference ranges are not well established. EER Peth See Note 08/29/2024 12:13 PM EDT [facility] Comment: Authorized individuals can access the [employer] Enhanced Report with an [employer] Connect account using the following link. Your local lab can assist you in obtaining the patient report if you don't have a Connect account. [email or web address] PEth Interpretation See Comment 08/29/2024 12:13 PM EDT [facility] Comment: Phosphatidylethanol (PEth) is a group of phospholipids formed in the presence of ethanol, phospholipase D and phosphatidylcholine. PEth is known to be a direct alcohol biomarker. The predominant PEth homologues are PEth 16:0/18:1 (POPEth) and PEth 16:0/18:2 (PLPEth), which account for 37-46% and 26-28% of the total PEth homologues, respectively. PEth is incorporated into the phospholipid membrane of red blood cells and has a general half-life of 4-10 days and a window of detection of 2-4 weeks. However, the window of detection is longer in individuals who chronically or excessively consume alcohol. The limit of quantification is 10 ng/mL. Serial monitoring of PEth may be helpful in monitoring alcohol abstinence over time. PEth results should be interpreted in the context of the patient's clinical and behavioral history. Patients with advanced liver disease may have falsely elevated PEth concentrations (Maisha DIXON et al 2018, Alcoholism Clinical & Experimental Research). This test was developed and its performance characteristics determined by [facility]. It has not been cleared or approved by the U.S. Food and Drug Administration. This test was performed in a CLIA-certified laboratory and is intended for clinical purposes. Performed By: [facility] [address] [place] [id number] Breakdown Worker: Ira Lutz MD, PhD CLIA Number: [id number] Blood BLOOD SPECIMEN / Unknown Venipuncture / Unknown 08/27/2024 3:06 PM EDT 08/27/2024 3:15 PM EDT Charles Ibrahim MD LABORATORY [place] [address] * XR CHEST 1V FRONTAL PORT (08/27/2024 3:01 PM EDT) Anatomical Region Laterality Modality Chest Radiographic Lisa ging 08/27/2024 3:00 PM EDT Impressions 08/27/2024 3:21 PM EDT IMPRESSION: See result. Telegrapher Agent: [facility]I Transcribe Date/Time: Aug 27 2024 3:17P Dictated by : DOMINGO DICKINSON MD This examination was interpreted and the report reviewed and electronically signed by: DOMINGO DICKINSON MD on Aug 27 2024 3:19PM EST Narrative 08/27/2024 3:21 PM EDT * * *Final Report* * * DATE OF EXAM: Aug 27 2024 3:00PM [facility] 5376 - XR CHEST 1V FRONTAL PORT / PROCEDURE REASON: Shortness of breath * * * * Physician Interpretation * * * * EXAMINATION: CHEST RADIOGRAPH (PORTABLE SINGLE VIEW AP) Exam Date/Time: 08/27/2024 3:00 PM Clinical History: Shortness of breath MQ: XCPMC_6 Comparison: 08/23/2024 RESULT: Lines, tubes, and devices: Lungs and pleura: Medium to large right effusion with right mid and lower zone consolidation/collapse. Mild blunting of the left CP angle with left basilar opacities may reflect small effusion with atelectasis. No sizable pneumothorax Cardiomediastinal silhouette: Stable cardiomediastinal silhouette. Other: . Procedure Note Provider, [facility] [place] - 08/27/2024 * * *Final Report* * * DATE OF EXAM: Aug 27 2024 3:00PM [facility] 5376 - XR CHEST 1V FRONTAL PORT / PROCEDURE REASON: Shortness of breath * * * * Physician Interpretation * * * * EXAMINATION: CHEST RADIOGRAPH (PORTABLE SINGLE VIEW AP) Exam Date/Time: 08/27/2024 3:00 PM Clinical History: Shortness of breath MQ: XCPMC_6 Comparison: 08/23/2024 RESULT: Lines, tubes, and devices: Lungs and pleura: Medium to large right effusion with right mid and lower zone consolidation/collapse. Mild blunting of the left CP angle with left basilar opacities may reflect small effusion with atelectasis. No sizable pneumothorax Cardiomediastinal silhouette: Stable cardiomediastinal silhouette. Other: . IMPRESSION IMPRESSION: See result. [facility]legrapher [facility] Transcribe Date/Time: Aug 27 2024 3:17P Dictated by : DOMINGO DICKINSON MD This examination was interpreted and the report reviewed and electronically signed by: DOMINGO DICKINSON MD on Aug 27 2024 3:19PM EST Charles Ibrahim MD RAD-PAMA Final Result * CT THORACIC SPINE WO IVCON (08/27/2024 9:51 AM EDT) Anatomical Region Laterality Modality T-spine Computed Tomogra phy 08/27/2024 9:51 AM EDT Impressions 08/27/2024 12:50 PM EDT IMPRESSION: THORACIC SPINE: * Unchanged mild T7 and T8 superior endplate fractures and severe T12 compression fracture at least 80% height loss and at least mild spinal canal stenosis due to retropulsion. No new acute fracture or traumatic malalignment. 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 * No high-grade spinal canal stenosis or substantial neural foraminal stenosis. * Unchanged large right pleural effusion. LUMBAR SPINE: * No acute fracture or traumatic malalignment. * No substantial spinal canal or neural foraminal stenosis. Anatomic Thoracic/Lumbar Variant: None. Mid-L4 vertebral body is considered the level of the iliac crest and assume there are 5 lumbar-type vertebrae. Telegrapher Agent: [facility] Transcribe Date/Time: Aug 27 2024 9:59A Dictated by : TREE ARIAS MD This examination was interpreted and the report reviewed and electronically signed by: CLARA CERON MD on Aug 27 2024 12:48PM EST Narrative 08/27/2024 12:50 PM EDT * * *Final Report* * * DATE OF EXAM: Aug 27 2024 9:51AM [facility] [place] 0514 - CT THORACIC SPINE WO IVCON / PROCEDURE REASON: compression deformity * * * * Physician Interpretation * * * * EXAMINATION: CT LUMBAR SPINE WO IVCON, CT THORACIC SPINE WO IVCON HISTORY: T12 fracture, T10 hibernoma TECHNIQUE: Spiral, high resolution axial unenhanced images were obtained from the cervicothoracic junction to the sacrum with sagittal and coronal planar reconstructions. MQ: CTTLWO_3 CT Radiation dose: Integrated CT Dose-Length Product (DLP) for this visit = 2237 mGy*cm CT Dose Reduction Employed: Automated exposure control (AEC) COMPARISON: MR thoracic/lumbar spine dated 08/24/2024 RESULT: Localizer Images: No additional findings. THORACIC: Counting Reference: No conventional reference available. Assume first normal thoracic rib is the T1 level. Anatomic Thoracic/Lumbar Variant: None. L4-5 is considered the level of the iliac crest and assume there are 5 lumbar-type vertebrae. Alignment: Anatomic alignment. Bones: Hyperattenuating right posterior T10 vertebral body/pedicle lesion is better assessed on recent MRI. Unchanged mild T7 and T8 superior endplate fractures with approximately 10% height loss but no retropulsion. Unchanged severe T12 compression fracture with at least 80% height loss and moderate retropulsion. Intervertebral Discs: Grossly normal heights. Soft Tissues: Unremarkable dorsal paraspinal soft tissues. Grossly unchanged large right pleural effusion with right lung atelectasis. Coronary artery atherosclerosis. Canal and Foramina: Likely at least mild spinal canal stenosis at T12 due to retropulsed fracture fragment. LUMBAR: Counting Reference: Cervicothoracic and lumbosacral junctions. Assume first thoracic rib is the T1 level. Anatomic Thoracic/Lumbar Variant: None. Mid-L4 vertebral body is considered the level of the iliac crest and assume there are 5 lumbar-type vertebrae. Alignment: Anatomic alignment. Bones: No pathologic lytic or blastic process. No fracture. Intervertebral Discs: Normal heights. Soft Tissues: Unremarkable dorsal paraspinal soft tissues. Diverticulosis without diverticulitis. There is moderate volume ascites. Cholecystectomy clips. L1-2: Patent canal and foramina. L2-3: Patent canal and foramina. L3-4: Patent canal and foramina. L4-5: Patent canal and foramina. L5-S1: Patent canal and foramina. Sacrum and Iliac Wings: Normal imaged sacrum and iliac wings. Procedure Note Provider, [facility] [place] - 08/27/2024 * * *Final Report* * * DATE OF EXAM: Aug 27 2024 9:51AM [facility] [place] 0514 - CT THORACIC SPINE WO IVCON / PROCEDURE REASON: compression deformity * * * * Physician Interpretation * * * * EXAMINATION: CT LUMBAR SPINE WO IVCON, CT THORACIC SPINE WO IVCON HISTORY: T12 fracture, T10 hibernoma TECHNIQUE: Spiral, high resolution axial unenhanced images were obtained from the cervicothoracic junction to the sacrum with sagittal and coronal planar reconstructions. MQ: CTTLWO_3 CT Radiation dose: Integrated CT Dose-Length Product (DLP) for this visit = 2237 mGy*cm CT Dose Reduction Employed: Automated exposure control (AEC) COMPARISON: MR thoracic/lumbar spine dated 08/24/2024 RESULT: Localizer Images: No additional findings. THORACIC: Counting Reference: No conventional reference available. Assume first normal thoracic rib is the T1 level. Anatomic Thoracic/Lumbar Variant: None. L4-5 is considered the level of the iliac crest and assume there are 5 lumbar-type vertebrae. Alignment: Anatomic alignment. Bones: Hyperattenuating right posterior T10 vertebral body/pedicle lesion is better assessed on recent MRI. Unchanged mild T7 and T8 superior endplate fractures with approximately 10% height loss but no retropulsion. Unchanged severe T12 compression fracture with at least 80% height loss and moderate retropulsion. Intervertebral Discs: Grossly normal heights. Soft Tissues: Unremarkable dorsal paraspinal soft tissues. Grossly unchanged large right pleural effusion with right lung atelectasis. Coronary artery atherosclerosis. Canal and Foramina: Likely at least mild spinal canal stenosis at T12 due to retropulsed fracture fragment. LUMBAR: Counting Reference: Cervicothoracic and lumbosacral junctions. Assume first thoracic rib is the T1 level. Anatomic Thoracic/Lumbar Variant: None. Mid-L4 vertebral body is considered the level of the iliac crest and assume there are 5 lumbar-type vertebrae. Alignment: Anatomic alignment. Bones: No pathologic lytic or blastic process. No fracture. Intervertebral Discs: Normal heights. Soft Tissues: Unremarkable dorsal paraspinal soft tissues. Diverticulosis without diverticulitis. There is moderate volume ascites. Cholecystectomy clips. L1-2: Patent canal and foramina. L2-3: Patent canal and foramina. L3-4: Patent canal and foramina. L4-5: Patent canal and foramina. L5-S1: Patent canal and foramina. Sacrum and Iliac Wings: Normal imaged sacrum and iliac wings. IMPRESSION IMPRESSION: THORACIC SPINE: * Unchanged mild T7 and T8 superior endplate fractures and severe T12 compression fracture at least 80% height loss and at least mild spinal canal stenosis due to retropulsion. No new acute fracture or traumatic malalignment. 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 * No high-grade spinal canal stenosis or substantial neural foraminal stenosis. * Unchanged large right pleural effusion. LUMBAR SPINE: * No acute fracture or traumatic malalignment. * No substantial spinal canal or neural foraminal stenosis. Anatomic Thoracic/Lumbar Variant: None. Mid-L4 vertebral body is considered the level of the iliac crest and assume there are 5 lumbar-type vertebrae. Telegrapher Agent: [facility] Transcribe Date/Time: Aug 27 2024 9:59A Dictated by : TREE ARIAS MD This examination was interpreted and the report reviewed and electronically signed by: CLARA CERON MD on Aug 27 2024 12:48PM EST Charles Ibrahim MD CT-PAMA Final Result * CT LUMBAR SPINE WO IVCON (08/27/2024 9:51 AM EDT) Anatomical Region Laterality Modality L-spine Computed Tomogra phy 08/27/2024 9:51 AM EDT Impressions 08/27/2024 12:50 PM EDT IMPRESSION: THORACIC SPINE: * Unchanged mild T7 and T8 superior endplate fractures and severe T12 compression fracture at least 80% height loss and at least mild spinal canal stenosis due to retropulsion. No new acute fracture or traumatic malalignment. 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 * No high-grade spinal canal stenosis or substantial neural foraminal stenosis. * Unchanged large right pleural effusion. LUMBAR SPINE: * No acute fracture or traumatic malalignment. * No substantial spinal canal or neural foraminal stenosis. Anatomic Thoracic/Lumbar Variant: None. Mid-L4 vertebral body is considered the level of the iliac crest and assume there are 5 lumbar-type vertebrae. Telegrapher Agent: [facility] Transcribe Date/Time: Aug 27 2024 9:59A Dictated by : TREE ARIAS MD This examination was interpreted and the report reviewed and electronically signed by: CLARA CERON MD on Aug 27 2024 12:48PM EST Narrative 08/27/2024 12:50 PM EDT * * *Final Report* * * DATE OF EXAM: Aug 27 2024 9:51AM [facility] [place] [address]508 - CT LUMBAR SPINE WO IVCON / PROCEDURE REASON: compression deformity * * * * Physician Interpretation * * * * EXAMINATION: CT LUMBAR SPINE WO IVCON, CT THORACIC SPINE WO IVCON HISTORY: T12 fracture, T10 hibernoma TECHNIQUE: Spiral, high resolution axial unenhanced images were obtained from the cervicothoracic junction to the sacrum with sagittal and coronal planar reconstructions. MQ: CTTLWO_3 CT Radiation dose: Integrated CT Dose-Length Product (DLP) for this visit = 2237 mGy*cm CT Dose Reduction Employed: Automated exposure control (AEC) COMPARISON: MR thoracic/lumbar spine dated 08/24/2024 RESULT: Localizer Images: No additional findings. THORACIC: Counting Reference: No conventional reference available. Assume first normal thoracic rib is the T1 level. Anatomic Thoracic/Lumbar Variant: None. L4-5 is considered the level of the iliac crest and assume there are 5 lumbar-type vertebrae. Alignment: Anatomic alignment. Bones: Hyperattenuating right posterior T10 vertebral body/pedicle lesion is better assessed on recent MRI. Unchanged mild T7 and T8 superior endplate fractures with approximately 10% height loss but no retropulsion. Unchanged severe T12 compression fracture with at least 80% height loss and moderate retropulsion. Intervertebral Discs: Grossly normal heights. Soft Tissues: Unremarkable dorsal paraspinal soft tissues. Grossly unchanged large right pleural effusion with right lung atelectasis. Coronary artery atherosclerosis. Canal and Foramina: Likely at least mild spinal canal stenosis at T12 due to retropulsed fracture fragment. LUMBAR: Counting Reference: Cervicothoracic and lumbosacral junctions. Assume first thoracic rib is the T1 level. Anatomic Thoracic/Lumbar Variant: None. Mid-L4 vertebral body is considered the level of the iliac crest and assume there are 5 lumbar-type vertebrae. Alignment: Anatomic alignment. Bones: No pathologic lytic or blastic process. No fracture. Intervertebral Discs: Normal heights. Soft Tissues: Unremarkable dorsal paraspinal soft tissues. Diverticulosis without diverticulitis. There is moderate volume ascites. Cholecystectomy clips. L1-2: Patent canal and foramina. L2-3: Patent canal and foramina. L3-4: Patent canal and foramina. L4-5: Patent canal and foramina. L5-S1: Patent canal and foramina. Sacrum and Iliac Wings: Normal imaged sacrum and iliac wings. Procedure Note Provider, [facility] [place] - 08/27/2024 * * *Final Report* * * DATE OF EXAM: Aug 27 2024 9:51AM [facility] [place] 0508 - CT LUMBAR SPINE WO IVCON / PROCEDURE REASON: compression deformity * * * * Physician Interpretation * * * * EXAMINATION: CT LUMBAR SPINE WO IVCON, CT THORACIC SPINE WO IVCON HISTORY: T12 fracture, T10 hibernoma TECHNIQUE: Spiral, high resolution axial unenhanced images were obtained from the cervicothoracic junction to the sacrum with sagittal and coronal planar reconstructions. MQ: CTTLWO_3 CT Radiation dose: Integrated CT Dose-Length Product (DLP) for this visit = 2237 mGy*cm CT Dose Reduction Employed: Automated exposure control (AEC) COMPARISON: MR thoracic/lumbar spine dated 08/24/2024 RESULT: Localizer Images: No additional findings. THORACIC: Counting Reference: No conventional reference available. Assume first normal thoracic rib is the T1 level. Anatomic Thoracic/Lumbar Variant: None. L4-5 is considered the level of the iliac crest and assume there are 5 lumbar-type vertebrae. Alignment: Anatomic alignment. Bones: Hyperattenuating right posterior T10 vertebral body/pedicle lesion is better assessed on recent MRI. Unchanged mild T7 and T8 superior endplate fractures with approximately 10% height loss but no retropulsion. Unchanged severe T12 compression fracture with at least 80% height loss and moderate retropulsion. Intervertebral Discs: Grossly normal heights. Soft Tissues: Unremarkable dorsal paraspinal soft tissues. Grossly unchanged large right pleural effusion with right lung atelectasis. Coronary artery atherosclerosis. Canal and Foramina: Likely at least mild spinal canal stenosis at T12 due to retropulsed fracture fragment. LUMBAR: Counting Reference: Cervicothoracic and lumbosacral junctions. Assume first thoracic rib is the T1 level. Anatomic Thoracic/Lumbar Variant: None. Mid-L4 vertebral body is considered the level of the iliac crest and assume there are 5 lumbar-type vertebrae. Alignment: Anatomic alignment. Bones: No pathologic lytic or blastic process. No fracture. Intervertebral Discs: Normal heights. Soft Tissues: Unremarkable dorsal paraspinal soft tissues. Diverticulosis without diverticulitis. There is moderate volume ascites. Cholecystectomy clips. L1-2: Patent canal and foramina. L2-3: Patent canal and foramina. L3-4: Patent canal and foramina. L4-5: Patent canal and foramina. L5-S1: Patent canal and foramina. Sacrum and Iliac Wings: Normal imaged sacrum and iliac wings. IMPRESSION IMPRESSION: THORACIC SPINE: * Unchanged mild T7 and T8 superior endplate fractures and severe T12 compression fracture at least 80% height loss and at least mild spinal canal stenosis due to retropulsion. No new acute fracture or traumatic malalignment. 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 * No high-grade spinal canal stenosis or substantial neural foraminal stenosis. * Unchanged large right pleural effusion. LUMBAR SPINE: * No acute fracture or traumatic malalignment. * No substantial spinal canal or neural foraminal stenosis. Anatomic Thoracic/Lumbar Variant: None. Mid-L4 vertebral body is considered the level of the iliac crest and assume there are 5 lumbar-type vertebrae. Telegrapher Agent: [facility] Transcribe Date/Time: Aug 27 2024 9:59A Dictated by : TREE ARIAS MD This examination was interpreted and the report reviewed and electronically signed by: CLARA CERON MD on Aug 27 2024 12:48PM EST Charles Ibrahim MD CT-[facility] Final Result * CT BRAIN WO IVCON (08/27/2024 9:51 AM EDT) Anatomical Region Laterality Modality Head Computed Tomogra phy 08/27/2024 9:51 AM EDT Impressions 08/27/2024 10:40 AM EDT IMPRESSION: No acute intracranial process. Chronic changes as described. Telegrapher Agent: [facility] Transcribe Date/Time: Aug 27 2024 9:53A Dictated by : TREE ARIAS MD This examination was interpreted and the report reviewed and electronically signed by: CLARA CERON MD on Aug 27 2024 10:38AM EST Narrative 08/27/2024 10:40 AM EDT * * *Final Report* * * DATE OF EXAM: Aug 27 2024 9:51AM [facility] [place] [address]504 - CT BRAIN WO IVCON / PROCEDURE REASON: Mental status change, unknown cause * * * * Physician Interpretation * * * * EXAMINATION: CT BRAIN WO IVCON HISTORY: Altered mental status TECHNIQUE: Serial axial images without IV contrast were obtained from the vertex to the foramen magnum. MQ: CTBWO_3 CT Radiation dose: Integrated Dose-Length Product (DLP) for this visit = 2237 mGy*cm CT Dose Reduction Employed: Automated exposure control (AEC) COMPARISON: CT head dated 08/23/2024 RESULT: Localizer Images: No additional findings. Acute Change: No acute intracranial process. Hemorrhage: No acute intracranial hemorrhage. ECASS hemorrhagic transformation score: Not Applicable. Mass Lesion / Mass Effect: No intracranial mass. No extra-axial collection. No midline shift. Chronic Change: Patchy foci of low attenuation within the supratentorial white matter, nonspecific but likely represents moderate microvascular ischemia. Parenchyma: No volume loss for age. Ventricles: Ventricular enlargement concordant with the degree of parenchymal volume loss. Other: Grossly clear imaged paranasal sinuses. Clear mastoid air cells. Bilateral lens replacements. Unremarkable extracranial soft tissues. Procedure Note Provider, [facility] [place] - 08/27/2024 * * *Final Report* * * DATE OF EXAM: Aug 27 2024 9:51AM [facility] [place] [address]504 - CT BRAIN WO IVCON / PROCEDURE REASON: Mental status change, unknown cause * * * * Physician Interpretation * * * * EXAMINATION: CT BRAIN WO IVCON HISTORY: Altered mental status TECHNIQUE: Serial axial images without IV contrast were obtained from the vertex to the foramen magnum. MQ: CTBWO_3 CT Radiation dose: Integrated Dose-Length Product (DLP) for this visit = 2237 mGy*cm CT Dose Reduction Employed: Automated exposure control (AEC) COMPARISON: CT head dated 08/23/2024 RESULT: Localizer Images: No additional findings. Acute Change: No acute intracranial process. Hemorrhage: No acute intracranial hemorrhage. ECASS hemorrhagic transformation score: Not Applicable. Mass Lesion / Mass Effect: No intracranial mass. No extra-axial collection. No midline shift. Chronic Change: Patchy foci of low attenuation within the supratentorial white matter, nonspecific but likely represents moderate microvascular ischemia. Parenchyma: No volume loss for age. Ventricles: Ventricular enlargement concordant with the degree of parenchymal volume loss. Other: Grossly clear imaged paranasal sinuses. Clear mastoid air cells. Bilateral lens replacements. Unremarkable extracranial soft tissues. IMPRESSION IMPRESSION: No acute intracranial process. Chronic changes as described. [facility] Transcribe Date/Time: Aug 27 2024 9:53A Dictated by : TREE ARIAS MD This examination was interpreted and the report reviewed and electronically signed by: CLARA CERON MD on Aug 27 2024 10:38AM EST Charles Ibrahim MD CT-[facility] Final Result * US CHEST (POC) H23 USE ONLY (08/27/2024 9:48 AM EDT) Anatomical Region Laterality Modality Other 08/27/2024 9:48 AM EDT Nilay Villatoro MD IMAGES Final Result * ECG COMPLETE (08/27/2024 7:31 AM EDT) Ventricular Rate 67 BPM [facility] Atrial Rate 67 BPM [facility] P-R Interval 156 ms [facility] QRS Duration 92 ms [facility] QT Interval 426 ms [facility] QTC Calculation (Bazett) 450 ms [facility] Calculated P [place] 34 degrees [facility] Calculated R [place] 93 degrees [facility] Calculated T [place] 39 degrees [facility] 08/27/2024 7:31 AM EDT Impressions [facility] - 10/01/2024 9:22 AM EDT NORMAL SINUS RHYTHM RIGHT AXIS LOW VOLTAGE QRS, CONSIDER PULMONARY DISEASE, PERICARDIAL EFFUSION, OR NORMAL VARIANT BORDERLINE ECG Confirmed by OLGA LIDIA SANTOS MD ([id number]) on 10/01/2024 9:22:14 AM Narrative [facility] - 10/01/2024 9:22 AM EDT NAME : CHARLES BLANDON PID : [id number] : 1955 Gender : Male Race : ORD : [id number] Procedure Date : Aug 27 2024 07:31:02 Edit Date : Oct 01 2024 09:22:15 Diagnosis: NORMAL SINUS RHYTHM RIGHT AXIS LOW VOLTAGE QRS, CONSIDER PULMONARY DISEASE, PERICARDIAL EFFUSION, OR NORMAL VARIANT BORDERLINE ECG Confirmed by OLGA LIDIA SANTSO MD ([id number]) on 10/01/2024 9:22:14 AM Test Reason : Arrhythmia Location : 84 : [id number] [id number] Overread By : OLGA LIDIA SANTOS MD Edited By : OLGA LIDIA SANTOS MD Referred By : , Acquired by : ART HARRIS Charles Ibrahim MD EKG Final Result Performing Organization Address City/[facility]/ZIP Co de Phone Number [facility] [address] [place] [address] * LIVER REC HLA AB SCREEN (08/27/2024 4:41 AM EDT) Results to Follow See [facility] report to follow 09/03/2024 5:06 AM EDT [facility] Blood BLOOD SPECIMEN / Unknown Venipuncture / Unknown 08/27/2024 4:41 AM EDT 08/27/2024 4:55 AM EDT Charles Ibrahim MD ALLOGEN Final Result Performing Organization Address City/[facility] Co de Phone Number [facility] [address] [place] [id number], [place] * CHEST (POC) H23 USE ONLY (08/26/2024 11:38 AM EDT) Anatomical Region Laterality Modality Other 08/26/2024 11:3 8 AM EDT Ryley Sanders MD IMAGES Final Result * US PARACENTESIS (POC) DDI USE ONLY (08/26/2024 8:42 AM EDT) 08/26/2024 8:42 AM EDT Raquel Black PA-C IMAGES Final Result [facility] * PARACENTESIS/GASTRO (08/26/2024) Narrative Raquel Black PA-C - 08/26/2024 Name: Charles Blandon Patient presents for a Paracentesis. Indication for Procedure: Ascites INFORMED CONSENT Charles Blandon Medical Record: [id number] Procedure: Paracentesis The risks, benefits and anticipated outcomes of the procedure, the risks and benefits of the alternatives to the procedure and the roles and tasks of the personnel to be involved were discussed with the patient and the patient consents to the procedure and agrees to proceed. I have verified that consent has been obtained for this procedure. Raquel Black PA-C August 26, 2024 11:06 AM Dept of [place] [id number] [employer] / SAFETY CHECKLIST Procedure to be performed: Paracentesis Sign in Communication: Completed Time Out: Team Confirms the Correct Patient, Correct Procedure, Correct Site and Site Marking, Correct Position (if applicable), Prep and Dry Time (if applicable). Time: See Nursing Documentation Affirmation of Time Out: YES Sign Out Discussion: Completed Raquel Black PA-C Procedure performed by Raquel Black PA-C Medication: 2% Lidocaine 10cc The patient was placed in the supine position. A pocket of fluid suitable for paracentesis was marked in the right abdomen under ultrasound guidance. The skin and subcutaneous tissue was anesthetized with local anesthetic. A 15 guage Richards Needle was inserted into the abdomen and 6.7 liters were removed. The fluid was sent to the Lab for analysis. Albumin given per protocol Cell count only per ordering provider. There were no immediate complications associated with the procedure. Raquel Black PA-C Charles Ibrahim MD GASTRO Final Result * (ABNORMAL) LACTATE DEHYDROGENASE (08/25/2024 3:17 AM EDT) LD 334(H) 135 - 225 U/L 08/25/2024 6:52 AM EDT [facility] Blood BLOOD SPECIMEN / Unknown Venipuncture / Unknown 08/25/2024 3:17 AM EDT 08/25/2024 5:56 AM EDT Charles Ibrahim MD LABORATORY Final Result Performing Organization Address [facility] Co de Phone Number [facility] [address] [place] [address], [place] * (ABNORMAL) SEDIMENTATION RATE, WESTERGREN (08/25/2024 3:17 AM EDT) Sed Rate, Westergren 43(H) 0 - 15 mm/hr 08/25/2024 5:19 PM EDT [facility] Blood BLOOD SPECIMEN / Unknown Venipuncture / Unknown 08/25/2024 3:17 AM EDT 08/25/2024 5:56 AM EDT Charles Ibrahim MD LABORATORY Final Result Performing Organization Address [facility] de Phone Number [facility] [address] [place] [address], [place] * (ABNORMAL) CA 19-9 (08/25/2024 3:17 AM EDT) CA19-9 55.0(H) <36.0 U/mL 08/27/2024 10:17 AM EDT [facility] Comment: Cancer antigen 19-9 test is used as an aid in monitoring response to treatment or recurrence in patients with established pancreatic, hepatobiliary, or gastrointestinal malignancies. Clinical correlation is required. The CA 19-9 Antigen test was performed using the [employer] DXI paramagnetic particle chemiluminescent immunoassay method. Results obtained with different assay methods or kits cannot be used interchangeably. Blood BLOOD SPECIMEN / Unknown Venipuncture / Unknown 08/25/2024 3:17 AM EDT 08/25/2024 5:56 AM EDT us Charles Ibrahim MD LABORATORY Final Result [facility] [address] [facility] [address] [place] [address], [place] * MRI LUMBAR SPINE WO/W IVCON (08/24/2024 6:27 PM EDT) Anatomical Region Laterality Modality L-spine Magnetic Resonan ce 08/24/2024 6:27 PM EDT Impressions 08/24/2024 7:08 PM EDT IMPRESSION: Examinations are marred due to motion. Severe compression deformity of T12 with mild retropulsion of bone causing mild canal narrowing at T12-L1. Minimal enhancing soft tissues dorsally from this region, uncertain if due to minimal epidural extension of disease from previously noted T12 lesion versus prominence of the epidural plexus at this level, consider follow-up. No significant change in the marrow replacing lesion in the right T10 vertebral body extending to the pedicle, consistent with known hibernoma. No additional marrow replacing lesions. No high-grade canal narrowing, cord compression, or abnormal cord signal in the cervical or thoracic spine. No high-grade canal narrowing in the lumbar spine. Cervical Anatomic Variant: None. Assume 7 cervical vertebrae with counting from the craniocervical junction. Anatomic Thoracic/Lumbar Variant: None. L4-5 is considered the level of the iliac crest and assume there are 5 lumbar-type vertebrae. Telegrapher Agent: SRINI Transcribe Date/Time: Aug 24 2024 6:32P Dictated by : IRA URIBE MD This examination was interpreted and the report reviewed and electronically signed by: IRA URIBE MD on Aug 24 2024 7:05PM EST Narrative 08/24/2024 7:08 PM EDT * * *Final Report* * * DATE OF EXAM: Aug 24 2024 6:27PM QBM 0304 - MRI LUMBAR SPINE WO/W IVCON / PROCEDURE REASON: Musculoskeletal neoplasm, staging * * * * Physician Interpretation * * * * EXAMINATION: MRI CERVICAL SPINE WO/W IVCON, MRI LUMBAR SPINE WO/W IVCON, MRI THORACIC SPINE WO/W IVCON CLINICAL HISTORY: Musculoskeletal neoplasm, staging TECHNIQUE: Routine cervical, thoracic, and lumbosacral spine MR protocol without and with intravenous gadolinium. MQ: [id number]_3 Contrast: Dotarem. Contrast Dose: 15 cc Route of Administration: IV COMPARISON: MR complete spine 06/08/2024 RESULT: Examinations are marred due to motion. Findings are within limitations. CERVICAL: Counting reference: Craniocervical junction. Anatomic Variants: None. Localizer images: No significant findings. Alignment: Alignment is anatomic. Craniocervical junction: Craniocervical junction is normal. Cord: The cervical spinal cord is within normal limits of signal intensity and morphology. No abnormal enhancement within limitations of motion. Bone marrow signal/fracture: No evidence of pathologic marrow infiltration within limitations of motion. No evidence of prior fracture. Cervical soft tissues: The paraspinal soft tissues are within normal limits. Canal and foramina: No significant cervical canal or foraminal stenosis within the constraints of the study. Minimal disc osteophyte complexes at C3-C4 and C5-C6. THORACIC: Counting reference: Craniocervical and lumbosacral junctions. For the purposes of this report, L4-5 is considered the level of the iliac crest and assume there are 5 lumbar-type vertebrae. Anatomic variant: None. Localizer images: [Large right pleural effusion. Alignment: Alignment is anatomic. Cord: The thoracic spinal cord is within normal limits of signal intensity and morphology. Bone marrow signal/fracture: Severe compression deformity of the T12 with mild retropulsion of bone. Minimal enhancing soft tissues dorsally from this region, uncertain if due to minimal epidural extension of disease versus prominence of the epidural plexus at this level. This causes mild narrowing at T12-L1. No significant effacement of either foramina. Again seen is a marrow replacing lesion in the T10 vertebral body extending to the right T10 pedicle measuring up to 2.5 cm, unchanged. This may be due to patient's known diagnosis of a hibernoma. No new marrow replacing lesions are identified within limitations of motion, with heterogeneity of the marrow on the T1 and T2 images. Mild chronic loss height of T7, and T8, unchanged compared to the prior exam. Thoracic soft tissues: The paraspinal soft tissues are within normal limits. Canal and foramina: See above for mild canal narrowing due to retropulsion of bone at T12. Otherwise, thoracic canal and foramina are patent. LUMBAR: Counting reference: Craniocervical and lumbosacral junctions. For the purposes of this report, L4-5 is considered the level of the iliac crest and assume there are 5 lumbar-type vertebrae. Anatomic variant: None. Localizer images: Ascites. Alignment: Alignment is anatomic. Bone marrow signal/fracture: No evidence of pathologic marrow infiltration. No evidence of prior fracture. Conus: The conus is within normal limits of signal intensity and morphology. Paraspinal soft tissues: Paraspinal soft tissues are within normal limits. Canal and foramina: No significant lumbar canal or foraminal stenosis within the constraints of the study. Sacrum and iliac wings: The visualized sacrum and iliac wings are within normal limits. The presacral soft tissues are normal in appearance. Procedure Note Provider, [facility] [place] - 08/24/2024 * * *Final Report* * * DATE OF EXAM: Aug 24 2024 6:27PM QBM 0304 - MRI LUMBAR SPINE WO/W IVCON / PROCEDURE REASON: Musculoskeletal neoplasm, staging * * * * Physician Interpretation * * * * EXAMINATION: MRI CERVICAL SPINE WO/W IVCON, MRI LUMBAR SPINE WO/W IVCON, MRI THORACIC SPINE WO/W IVCON CLINICAL HISTORY: Musculoskeletal neoplasm, staging TECHNIQUE: Routine cervical, thoracic, and lumbosacral spine MR protocol without and with intravenous gadolinium. MQ: MRCTLWO_3 Contrast: Dotarem. Contrast Dose: 15 cc Route of Administration: IV COMPARISON: MR complete spine 06/08/2024 RESULT: Examinations are marred due to motion. Findings are within limitations. CERVICAL: Counting reference: Craniocervical junction. Anatomic Variants:None. Localizer images: No significant findings. Alignment: Alignment is anatomic. Craniocervical junction: Craniocervical junction is normal. Cord: The cervical spinal cord is within normal limits of signal intensity and morphology. No abnormal enhancement within limitations of motion. Bone marrow signal/fracture: No evidence of pathologic marrow infiltration within limitations of motion. No evidence of priorfracture. Cervical soft tissues: The paraspinal soft tissues are within normal limits. Canal and foramina: No significant cervical canal or foraminal stenosis within the constraints of the study. Minimal disc osteophyte complexes at C3-C4 and C5-C6. THORACIC: Counting reference: Craniocervical and lumbosacral junctions. For the purposes of this report, L4-5 is considered the level of the iliac crest and assume there are 5 lumbar-type vertebrae. Anatomic variant: None. Localizer images: [Large right pleural effusion. Alignment: Alignment is anatomic. Cord: The thoracic spinal cord is within normal limits of signal intensity and morphology. Bone marrow signal/fracture: Severe compression deformity of the T12 with mild retropulsion of bone. Minimal enhancing soft tissues dorsally from this region, uncertain if due to minimal epidural extension of disease versus prominence of the epidural plexus at this level. This causes mild narrowing at T12-L1. No significant effacement of either foramina. Again seen is a marrow replacing lesion in the T10 vertebral body extending to the right T10 pedicle measuring up to 2.5 cm, unchanged. This may be due to patient's known diagnosis of a hibernoma. No new marrow replacing lesions are identified within limitations of motion, with heterogeneity of the marrow on the T1 and T2 images. Mild chronic loss height of T7, and T8, unchanged compared to the prior exam. Thoracic soft tissues: The paraspinal soft tissues are within normal limits. Canal and foramina: See above for mild canal narrowing due to retropulsion of bone at T12. Otherwise, thoracic canal and foramina are patent. LUMBAR: Counting reference: Craniocervical and lumbosacral junctions. For the purposes of this report, L4-5 is considered the level of the iliac crest and assume there are 5 lumbar-type vertebrae. Anatomic variant: None. Localizer images: Ascites. Alignment: Alignment is anatomic. Bone marrow signal/fracture: No evidence of pathologic marrow infiltration. No evidence of prior fracture. Conus: The conus is within normal limits of signal intensity and morphology. Paraspinal soft tissues: Paraspinal soft tissues are within normal limits. Canal and foramina: No significant lumbar canal or foraminal stenosis within the constraints of the study. Sacrum and iliac wings: The visualized sacrum and iliac wings are within normal limits. The presacral soft tissues are normal in appearance. IMPRESSION IMPRESSION: Examinations are marred due to motion. Severe compression deformity of T12 with mild retropulsion of bone causing mild canal narrowing at T12-L1. Minimal enhancing soft tissues dorsally from this region, uncertain if due to minimal epidural extension of disease from previously noted T12 lesion versus prominence of the epidural plexus at this level, consider follow-up. No significant change in the marrow replacing lesion in the right T10 vertebral body extending to the pedicle, consistent with known hibernoma. No additional marrow replacing lesions. No high-grade canal narrowing, cord compression, or abnormal cord signal in the cervical or thoracic spine. No high-grade canal narrowing in the lumbar spine. Cervical Anatomic Variant: None. Assume 7 cervical vertebrae with counting from the craniocervical junction. Anatomic Thoracic/Lumbar Variant: None. L4-5 is considered the level of the iliac crest and assume there are 5 lumbar-type vertebrae. Telegrapher Agent: SRINI Transcribe Date/Time: Aug 24 2024 6:32P Dictated by : IRA URIBE MD This examination was interpreted and the report reviewed and electronically signed by: IRA URIBE MD on Aug 24 2024 7:05PM EST us Charles Ibrahim MD MRI-[facility] Final Result * MRI THORACIC SPINE WO/W IVCON (08/24/2024 6:27 PM EDT) Anatomical Region Laterality Modality T-spine Magnetic Resonan ce 08/24/2024 6:27 PM EDT Impressions 08/24/2024 7:08 PM EDT IMPRESSION: Examinations are marred due to motion. Severe compression deformity of T12 with mild retropulsion of bone causing mild canal narrowing at T12-L1. Minimal enhancing soft tissues dorsally from this region, uncertain if due to minimal epidural extension of disease from previously noted T12 lesion versus prominence of the epidural plexus at this level, consider follow-up. No significant change in the marrow replacing lesion in the right T10 vertebral body extending to the pedicle, consistent with known hibernoma. No additional marrow replacing lesions. No high-grade canal narrowing, cord compression, or abnormal cord signal in the cervical or thoracic spine. No high-grade canal narrowing in the lumbar spine. Cervical Anatomic Variant: None. Assume 7 cervical vertebrae with counting from the craniocervical junction. Anatomic Thoracic/Lumbar Variant: None. L4-5 is considered the level of the iliac crest and assume there are 5 lumbar-type vertebrae. Telegrapher Agent: [facility] Transcribe Date/Time: Aug 24 2024 6:32P Dictated by : IRA URIBE MD This examination was interpreted and the report reviewed and electronically signed by: IRA URIBE MD on Aug 24 2024 7:05PM EST Narrative 08/24/2024 7:08 PM EDT * * *Final Report* * * DATE OF EXAM: Aug 24 2024 6:27PM QBM 0326 - MRI THORACIC SPINE WO/W IVCON / PROCEDURE REASON: Musculoskeletal neoplasm, staging * * * * Physician Interpretation * * * * EXAMINATION: MRI CERVICAL SPINE WO/W IVCON, MRI LUMBAR SPINE WO/W IVCON, MRI THORACIC SPINE WO/W IVCON CLINICAL HISTORY: Musculoskeletal neoplasm, staging TECHNIQUE: Routine cervical, thoracic, and lumbosacral spine MR protocol without and with intravenous gadolinium. MQ: MRCTLWO_3 Contrast: Dotarem. Contrast Dose: 15 cc Route of Administration: IV COMPARISON: MR complete spine 06/08/2024 RESULT: Examinations are marred due to motion. Findings are within limitations. CERVICAL: Counting reference: Craniocervical junction. Anatomic Variants: None. Localizer images: No significant findings. Alignment: Alignment is anatomic. Craniocervical junction: Craniocervical junction is normal. Cord: The cervical spinal cord is within normal limits of signal intensity and morphology. No abnormal enhancement within limitations of motion. Bone marrow signal/fracture: No evidence of pathologic marrow infiltration within limitations of motion. No evidence of prior fracture. Cervical soft tissues: The paraspinal soft tissues are within normal limits. Canal and foramina: No significant cervical canal or foraminal stenosis within the constraints of the study. Minimal disc osteophyte complexes at C3-C4 and C5-C6. THORACIC: Counting reference: Craniocervical and lumbosacral junctions. For the purposes of this report, L4-5 is considered the level of the iliac crest and assume there are 5 lumbar-type vertebrae. Anatomic variant: None. Localizer images: [Large right pleural effusion. Alignment: Alignment is anatomic. Cord: The thoracic spinal cord is within normal limits of signal intensity and morphology. Bone marrow signal/fracture: Severe compression deformity of the T12 with mild retropulsion of bone. Minimal enhancing soft tissues dorsally from this region, uncertain if due to minimal epidural extension of disease versus prominence of the epidural plexus at this level. This causes mild narrowing at T12-L1. No significant effacement of either foramina. Again seen is a marrow replacing lesion in the T10 vertebral body extending to the right T10 pedicle measuring up to 2.5 cm, unchanged. This may be due to patient's known diagnosis of a hibernoma. No new marrow replacing lesions are identified within limitations of motion, with heterogeneity of the marrow on the T1 and T2 images. Mild chronic loss height of T7, and T8, unchanged compared to the prior exam. Thoracic soft tissues: The paraspinal soft tissues are within normal limits. Canal and foramina: See above for mild canal narrowing due to retropulsion of bone at T12. Otherwise, thoracic canal and foramina are patent. LUMBAR: Counting reference: Craniocervical and lumbosacral junctions. For the purposes of this report, L4-5 is considered the level of the iliac crest and assume there are 5 lumbar-type vertebrae. Anatomic variant: None. Localizer images: Ascites. Alignment: Alignment is anatomic. Bone marrow signal/fracture: No evidence of pathologic marrow infiltration. No evidence of prior fracture. Conus: The conus is within normal limits of signal intensity and morphology. Paraspinal soft tissues: Paraspinal soft tissues are within normal limits. Canal and foramina: No significant lumbar canal or foraminal stenosis within the constraints of the study. Sacrum and iliac wings: The visualized sacrum and iliac wings are within normal limits. The presacral soft tissues are normal in appearance. Procedure Note Provider, [facility] - 08/24/2024 * * *Final Report* * * DATE OF EXAM: Aug 24 2024 6:27PM [facility] 0326 - MRI THORACIC SPINE WO/W IVCON / PROCEDURE REASON: Musculoskeletal neoplasm, staging * * * * Physician Interpretation * * * * EXAMINATION: MRI CERVICAL SPINE WO/W IVCON, MRI LUMBAR SPINE WO/W IVCON, MRI THORACIC SPINE WO/W IVCON CLINICAL HISTORY: Musculoskeletal neoplasm, staging TECHNIQUE: Routine cervical, thoracic, and lumbosacral spine MR protocol without and with intravenous gadolinium. MQ: MRCTLWO_3 Contrast: Dotarem. Contrast Dose: 15 cc Route of Administration: IV COMPARISON: MR complete spine 06/08/2024 RESULT: Examinations are marred due to motion. Findings are within limitations. CERVICAL: Counting reference: Craniocervical junction. Anatomic Variants:None. Localizer images: No significant findings. Alignment: Alignment is anatomic. Craniocervical junction: Craniocervical junction is normal. Cord: The cervical spinal cord is within normal limits of signal intensity and morphology. No abnormal enhancement within limitations of motion. Bone marrow signal/fracture: No evidence of pathologic marrow infiltration within limitations of motion. No evidence of priorfracture. Cervical soft tissues: The paraspinal soft tissues are within normal limits. Canal and foramina: No significant cervical canal or foraminal stenosis within the constraints of the study. Minimal disc osteophyte complexes at C3-C4 and C5-C6. THORACIC: Counting reference: Craniocervical and lumbosacral junctions. For the purposes of this report, L4-5 is considered the level of the iliac crest and assume there are 5 lumbar-type vertebrae. Anatomic variant: None. Localizer images: [Large right pleural effusion. Alignment: Alignment is anatomic. Cord: The thoracic spinal cord is within normal limits of signal intensity and morphology. Bone marrow signal/fracture: Severe compression deformity of the T12 with mild retropulsion of bone. Minimal enhancing soft tissues dorsally from this region, uncertain if due to minimal epidural extension of disease versus prominence of the epidural plexus at this level. This causes mild narrowing at T12-L1. No significant effacement of either foramina. Again seen is a marrow replacing lesion in the T10 vertebral body extending to the right T10 pedicle measuring up to 2.5 cm, unchanged. This may be due to patient's known diagnosis of a hibernoma. No new marrow replacing lesions are identified within limitations of motion, with heterogeneity of the marrow on the T1 and T2 images. Mild chronic loss height of T7, and T8, unchanged compared to the prior exam. Thoracic soft tissues: The paraspinal soft tissues are within normal limits. Canal and foramina: See above for mild canal narrowing due to retropulsion of bone at T12. Otherwise, thoracic canal and foramina are patent. LUMBAR: Counting reference: Craniocervical and lumbosacral junctions. For the purposes of this report, L4-5 is considered the level of the iliac crest and assume there are 5 lumbar-type vertebrae. Anatomic variant: None. Localizer images: Ascites. Alignment: Alignment is anatomic. Bone marrow signal/fracture: No evidence of pathologic marrow infiltration. No evidence of prior fracture. Conus: The conus is within normal limits of signal intensity and morphology. Paraspinal soft tissues: Paraspinal soft tissues are within normal limits. Canal and foramina: No significant lumbar canal or foraminal stenosis within the constraints of the study. Sacrum and iliac wings: The visualized sacrum and iliac wings are within normal limits. The presacral soft tissues are normal in appearance. IMPRESSION IMPRESSION: Examinations are marred due to motion. Severe compression deformity of T12 with mild retropulsion of bone causing mild canal narrowing at T12-L1. Minimal enhancing soft tissues dorsally from this region, uncertain if due to minimal epidural extension of disease from previously noted T12 lesion versus prominence of the epidural plexus at this level, consider follow-up. No significant change in the marrow replacing lesion in the right T10 vertebral body extending to the pedicle, consistent with known hibernoma. No additional marrow replacing lesions. No high-grade canal narrowing, cord compression, or abnormal cord signal in the cervical or thoracic spine. No high-grade canal narrowing in the lumbar spine. Cervical Anatomic Variant: None. Assume 7 cervical vertebrae with counting from the craniocervical junction. Anatomic Thoracic/Lumbar Variant: None. L4-5 is considered the level of the iliac crest and assume there are 5 lumbar-type vertebrae. Telegrapher Agent: [facility] Transcribe Date/Time: Aug 24 2024 6:32P Dictated by : IRA URIBE MD This examination was interpreted and the report reviewed and electronically signed by: IRA URIBE MD on Aug 24 2024 7:05PM EST Charles Ibrahim MD MRI[facility] Final Result * MRI CERVICAL SPINE WO/W IVCON (08/24/2024 6:27 PM EDT) Anatomical Region Laterality Modality C-spine Magnetic Resonan ce 08/24/2024 6:27 PM EDT Impressions 08/24/2024 7:08 PM EDT IMPRESSION: Examinations are marred due to motion. Severe compression deformity of T12 with mild retropulsion of bone causing mild canal narrowing at T12-L1. Minimal enhancing soft tissues dorsally from this region, uncertain if due to minimal epidural extension of disease from previously noted T12 lesion versus prominence of the epidural plexus at this level, consider follow-up. No significant change in the marrow replacing lesion in the right T10 vertebral body extending to the pedicle, consistent with known hibernoma. No additional marrow replacing lesions. No high-grade canal narrowing, cord compression, or abnormal cord signal in the cervical or thoracic spine. No high-grade canal narrowing in the lumbar spine. Cervical Anatomic Variant: None. Assume 7 cervical vertebrae with counting from the craniocervical junction. Anatomic Thoracic/Lumbar Variant: None. L4-5 is considered the level of the iliac crest and assume there are 5 lumbar-type vertebrae. Telegrapher Agent: [facility] Transcribe Date/Time: Aug 24 2024 6:32P Dictated by : IRA URIBE MD This examination was interpreted and the report reviewed and electronically signed by: IRA URIBE MD on Aug 24 2024 7:05PM EST Narrative 08/24/2024 7:08 PM EDT * * *Final Report* * * DATE OF EXAM: Aug 24 2024 6:27PM [facility] 0298 - MRI CERVICAL SPINE WO/W IVCON / PROCEDURE REASON: Musculoskeletal neoplasm, staging * * * * Physician Interpretation * * * * EXAMINATION: MRI CERVICAL SPINE WO/W IVCON, MRI LUMBAR SPINE WO/W IVCON, MRI THORACIC SPINE WO/W IVCON CLINICAL HISTORY: Musculoskeletal neoplasm, staging TECHNIQUE: Routine cervical, thoracic, and lumbosacral spine MR protocol without and with intravenous gadolinium. MQ: MRCTLWO_3 Contrast: Dotarem. Contrast Dose: 15 cc Route of Administration: IV COMPARISON: MR complete spine 06/08/2024 RESULT: Examinations are marred due to motion. Findings are within limitations. CERVICAL: Counting reference: Craniocervical junction. Anatomic Variants: None. Localizer images: No significant findings. Alignment: Alignment is anatomic. Craniocervical junction: Craniocervical junction is normal. Cord: The cervical spinal cord is within normal limits of signal intensity and morphology. No abnormal enhancement within limitations of motion. Bone marrow signal/fracture: No evidence of pathologic marrow infiltration within limitations of motion. No evidence of prior fracture. Cervical soft tissues: The paraspinal soft tissues are within normal limits. Canal and foramina: No significant cervical canal or foraminal stenosis within the constraints of the study. Minimal disc osteophyte complexes at C3-C4 and C5-C6. THORACIC: Counting reference: Craniocervical and lumbosacral junctions. For the purposes of this report, L4-5 is considered the level of the iliac crest and assume there are 5 lumbar-type vertebrae. Anatomic variant: None. Localizer images: [Large right pleural effusion. Alignment: Alignment is anatomic. Cord: The thoracic spinal cord is within normal limits of signal intensity and morphology. Bone marrow signal/fracture: Severe compression deformity of the T12 with mild retropulsion of bone. Minimal enhancing soft tissues dorsally from this region, uncertain if due to minimal epidural extension of disease versus prominence of the epidural plexus at this level. This causes mild narrowing at T12-L1. No significant effacement of either foramina. Again seen is a marrow replacing lesion in the T10 vertebral body extending to the right T10 pedicle measuring up to 2.5 cm, unchanged. This may be due to patient's known diagnosis of a hibernoma. No new marrow replacing lesions are identified within limitations of motion, with heterogeneity of the marrow on the T1 and T2 images. Mild chronic loss height of T7, and T8, unchanged compared to the prior exam. Thoracic soft tissues: The paraspinal soft tissues are within normal limits. Canal and foramina: See above for mild canal narrowing due to retropulsion of bone at T12. Otherwise, thoracic canal and foramina are patent. LUMBAR: Counting reference: Craniocervical and lumbosacral junctions. For the purposes of this report, L4-5 is considered the level of the iliac crest and assume there are 5 lumbar-type vertebrae. Anatomic variant: None. Localizer images: Ascites. Alignment: Alignment is anatomic. Bone marrow signal/fracture: No evidence of pathologic marrow infiltration. No evidence of prior fracture. Conus: The conus is within normal limits of signal intensity and morphology. Paraspinal soft tissues: Paraspinal soft tissues are within normal limits. Canal and foramina: No significant lumbar canal or foraminal stenosis within the constraints of the study. Sacrum and iliac wings: The visualized sacrum and iliac wings are within normal limits. The presacral soft tissues are normal in appearance. Procedure Note Provider, [facility] - 08/24/2024 * * *Final Report* * * DATE OF EXAM: Aug 24 2024 6:27PM QBM 0298 - MRI CERVICAL SPINE WO/W IVCON / PROCEDURE REASON: Musculoskeletal neoplasm, staging * * * * Physician Interpretation * * * * EXAMINATION: MRI CERVICAL SPINE WO/W IVCON, MRI LUMBAR SPINE WO/W IVCON, MRI THORACIC SPINE WO/W IVCON CLINICAL HISTORY: Musculoskeletal neoplasm, staging TECHNIQUE: Routine cervical, thoracic, and lumbosacral spine MR protocol without and with intravenous gadolinium. MQ: MRCTLWO_3 Contrast: Dotarem. Contrast Dose: 15 cc Route of Administration: IV COMPARISON: MR complete spine 06/08/2024 RESULT: Examinations are marred due to motion. Findings are within limitations. CERVICAL: Counting reference: Craniocervical junction. Anatomic Variants:None. Localizer images: No significant findings. Alignment: Alignment is anatomic. Craniocervical junction: Craniocervical junction is normal. Cord: The cervical spinal cord is within normal limits of signal intensity and morphology. No abnormal enhancement within limitations of motion. Bone marrow signal/fracture: No evidence of pathologic marrow infiltration within limitations of motion. No evidence of priorfracture. Cervical soft tissues: The paraspinal soft tissues are within normal limits. Canal and foramina: No significant cervical canal or foraminal stenosis within the constraints of the study. Minimal disc osteophyte complexes at C3-C4 and C5-C6. THORACIC: Counting reference: Craniocervical and lumbosacral junctions. For the purposes of this report, L4-5 is considered the level of the iliac crest and assume there are 5 lumbar-type vertebrae. Anatomic variant: None. Localizer images: [Large right pleural effusion. Alignment: Alignment is anatomic. Cord: The thoracic spinal cord is within normal limits of signal intensity and morphology. Bone marrow signal/fracture: Severe compression deformity of the T12 with mild retropulsion of bone. Minimal enhancing soft tissues dorsally from this region, uncertain if due to minimal epidural extension of disease versus prominence of the epidural plexus at this level. This causes mild narrowing at T12-L1. No significant effacement of either foramina. Again seen is a marrow replacing lesion in the T10 vertebral body extending to the right T10 pedicle measuring up to 2.5 cm, unchanged. This may be due to patient's known diagnosis of a hibernoma. No new marrow replacing lesions are identified within limitations of motion, with heterogeneity of the marrow on the T1 and T2 images. Mild chronic loss height of T7, and T8, unchanged compared to the prior exam. Thoracic soft tissues: The paraspinal soft tissues are within normal limits. Canal and foramina: See above for mild canal narrowing due to retropulsion of bone at T12. Otherwise, thoracic canal and foramina are patent. LUMBAR: Counting reference: Craniocervical and lumbosacral junctions. For the purposes of this report, L4-5 is considered the level of the iliac crest and assume there are 5 lumbar-type vertebrae. Anatomic variant: None. Localizer images: Ascites. Alignment: Alignment is anatomic. Bone marrow signal/fracture: No evidence of pathologic marrow infiltration. No evidence of prior fracture. Conus: The conus is within normal limits of signal intensity and morphology. Paraspinal soft tissues: Paraspinal soft tissues are within normal limits. Canal and foramina: No significant lumbar canal or foraminal stenosis within the constraints of the study. Sacrum and iliac wings: The visualized sacrum and iliac wings are within normal limits. The presacral soft tissues are normal in appearance. IMPRESSION IMPRESSION: Examinations are marred due to motion. Severe compression deformity of T12 with mild retropulsion of bone causing mild canal narrowing at T12-L1. Minimal enhancing soft tissues dorsally from this region, uncertain if due to minimal epidural extension of disease from previously noted T12 lesion versus prominence of the epidural plexus at this level, consider follow-up. No significant change in the marrow replacing lesion in the right T10 vertebral body extending to the pedicle, consistent with known hibernoma. No additional marrow replacing lesions. No high-grade canal narrowing, cord compression, or abnormal cord signal in the cervical or thoracic spine. No high-grade canal narrowing in the lumbar spine. Cervical Anatomic Variant: None. Assume 7 cervical vertebrae with counting from the craniocervical junction. Anatomic Thoracic/Lumbar Variant: None. L4-5 is considered the level of the iliac crest and assume there are 5 lumbar-type vertebrae. Telegrapher Agent: PSCPatricia Transcribe Date/Time: Aug 24 2024 6:32P Dictated by : IRA URIBE MD This examination was interpreted and the report reviewed and electronically signed by: IRA URIBE MD on Aug 24 2024 7:05PM EST Charles Ibrahim MD MRI-PAMA Final Result * ALPHA FETOPROTEIN (08/24/2024 11:34 AM EDT) Pathologist [facility] AFP, Serum (Tumor Marker) 2.56 <9.00 ng/mL 08/25/2024 10:17 AM EDT [facility] Comment:The Alpha-Fetoprotei n test was performed using the Ryan ROKT DxI immunoenzymatic assay. Results obtained with different assay methods or kits cannot be used interchangeably. Blood BLOOD SPECIMEN / Unknown Venipuncture / Unknown 08/24/2024 11:34 AM EDT 08/24/2024 11:47 AM EDT Narrative [facility] - 08/25/2024 10:17 AM EDT The test is typically used as an aid in managing hepatocellular carcinoma and non-seminomatous testicular cancer when used in conjunction with physical examination, histology, and other clinical evaluation procedures. Normal levels of AFP do not entirely exclude the possibility of the above-mentioned conditions, other malignancies, and chronic liver diseases. The normal range has not been established for newborns. Charles Ibrahim MD LABORATORY Final Result Performing Organization Address City/[facility]/ZIP Co de Phone Number [facility] [address] [place] [address], * (ABNORMAL) SEPSIS LACTATE (08/24/2024 1:03 AM EDT) [facility] Sepsis Lactate 2.6(H) <=2.0 mmol/L 08/24/2024 1:29 AM EDT [facility] Blood BLOOD SPECIMEN / Unknown Venipuncture / Unknown 08/24/2024 1:03 AM EDT 08/24/2024 1:26 AM EDT Aron Ruiz MD BLOOD GASES Final Result [facility] [address] [place] [address], [place] * PARACENTESIS (08/23/2024 6:44 PM EDT) Narrative EMERGENCY DEPARTMENT - 08/23/2024 6:44 PM EDT Alejo Blanco MD 08/23/2024 8:41 PM PARACENTESIS Date/Time: 08/23/2024 6:44 PM Performed by: Tran Underwood MD Authorized by: Alejo Blanco MD Alejo Blanco MD PROCEDURE Final Result Performing Organization Address City/[facility]/ZIP Co de Phone Number EMERGENCY DEPARTMENT [facility] [address] [place] [address] * BACTERIAL CULTURE, BLOOD (08/23/2024 6:30 PM EDT) Only the most recent of2 resultswithin the time period is included. Culture, Blood No growth 5 days 08/28/2024 9:01 PM EDT [facility] Blood BLOOD SPECIMEN / Unknown Venipuncture / Unknown 08/23/2024 6:30 PM EDT 08/23/2024 6:33 PM EDT Aron Ruiz MD MICROBIOLOGY Final Result Performing Organization Address City/[facility] Co de Phone Number [facility] [facility] [place] [address], * (ABNORMAL) TOXICOLOGY SCREEN, ROUTINE URINE (08/23/2024 6:19 PM EDT) Phencyclidine , Urine Negative Negative 08/23/2024 6:48 PM EDT [facility] Comment:Cutoff threshold at 25 ng/mL. Benzodiazepin es, Urine Negative Negative 08/23/2024 6:48 PM EDT [facility] Comment:Cutoff threshold at 200 ng/mL. Cocaine, Urine Negative Negative 08/23/2024 6:48 PM EDT [facility] Comment:Cutoff threshold at 300 ng/mL. Amphetamines, Urine Negative Negative 08/23/2024 6:48 PM EDT [facility] Comment:Cutoff threshold at 1000 ng/mL. Cannabinoids, Urine Negative Negative 08/23/2024 6:48 PM EDT [facility] Comment:Cutoff threshold at 50 ng/mL. Opiates, Urine Negative Negative 08/23/2024 6:48 PM EDT [facility] Comment:Cutoff threshold at 300 ng/mL. Barbiturates, Urine Negative Negative 08/23/2024 6:48 PM EDT [facility] Comment:Cutoff threshold at 200 ng/mL. Ethanol, Urine <11 <11 mg/dL 08/23/2024 6:48 PM EDT [facility] Oxycodone, Urine Preliminary positive(A) Negative 08/23/2024 6:48 PM EDT [facility] Comment:Cutoff threshold at 100 ng/mL. Urine URINE SPECIMEN / Unknown Non Blood / Unknown 08/23/2024 6:19 PM EDT 08/23/2024 6:23 PM EDT Narrative [facility] - 08/23/2024 6:48 PM EDT Immunoassay screen only. Cross reactivity with other substances can occur with immunoassay screening. Detection of any drug(s) in this urine toxicology panel is presumptive only. These tests are for medical purposes only and should not be used for compliance monitoring, legal, or forensic use. Samples should be within normal physiological conditions (e.g. pH). This assay does not include adulteration/specimen validity testing. In clinical settings, confirmatory testing is at the practitioner's discretion [1]. If clinically indicated, confirmation by high specificity, quantitative methodology, which includes adulteration/specimen validity testing, may be requested on the same specimen through Client Services ([phone]) if contacted within 48 hours of initial testing. [1]Substance Abuse and Mental Health Services Administration (2012). Clinical Drug Testing in Primary Care Technical Assistance Publication Series 32. Department of Health and Human Services, [place], p.10. us Aron Ruiz MD LABORATORY Final Result [facility] [address] [facility] [address] [address], * CT BRAIN WO IVCON (08/23/2024 5:29 PM EDT) Anatomical Region Laterality Modality Head Computed Tomogra phy 08/23/2024 5:29 PM EDT Impressions 08/23/2024 5:35 PM EDT IMPRESSION: 1. No CT evidence of an acute intracranial process. 2. Moderate sequela of chronic microvascular ischemia and mild diffuse parenchymal volume loss. Telegrapher Agent: SRINI Transcribe Date/Time: Aug 23 2024 5:32P Dictated by : LEEANNA TRUJILLO MD This examination was interpreted and the report reviewed and electronically signed by: LEEANNA TRUJILLO MD on Aug 23 2024 5:33PM EST Narrative 08/23/2024 5:35 PM EDT * * *Final Report* * * DATE OF EXAM: Aug 23 2024 5:29PM [facility] 0504 - CT BRAIN WO IVCON / PROCEDURE REASON: Head trauma, moderate-severe * * * * Physician Interpretation * * * * EXAMINATION: CT BRAIN WO IVCON CLINICAL HISTORY: Head trauma TECHNIQUE: Serial axial images without IV contrast were obtained from the vertex to the foramen magnum. MQ: CTBWO_3 CT Radiation dose: Integrated Dose-Length Product (DLP) for this visit = 776 mGy*cm CT Dose Reduction Employed: No dose reduction techniques were required COMPARISON: None. RESULT: Localizer images: No additional findings. Post-operative change: None. Acute change: No evidence of an acute infarct or other acute parenchymal process. Hemorrhage: No evidence of acute intracranial hemorrhage. ECASS hemorrhagic transformation score: Not Applicable Mass Lesion / Mass Effect: There is no evidence of an intracranial mass or extraaxial fluid collection. No significant mass effect. Chronic change: Patchy foci of low attenuation are present within the supratentorial white matter, a nonspecific finding that most commonly represents moderate small vessel disease. Parenchyma: There is mild generalized volume loss. The brain parenchyma is otherwise within normal limits for age. Ventricles: Ventricular enlargement concordant with the degree of parenchymal volume loss. Paranasal sinuses and skull base: The visualized paranasal sinuses are grossly clear. The skull base and imaged soft tissues are unremarkable. Procedure Note Provider, [facility] [place] - 08/23/2024 * * *Final Report* * * DATE OF EXAM: Aug 23 2024 5:29PM [facility] 0504 - CT BRAIN WO IVCON / PROCEDURE REASON: Head trauma, moderate-severe * * * * Physician Interpretation * * * * EXAMINATION: CT BRAIN WO IVCON CLINICAL HISTORY: Head trauma TECHNIQUE: Serial axial images without IV contrast were obtained from the vertex to the foramen magnum. MQ: CTBWO_3 CT Radiation dose: Integrated Dose-Length Product (DLP) for this visit = 776 mGy*cm CT Dose Reduction Employed: No dose reduction techniques were required COMPARISON: None. RESULT: Localizer images: No additional findings. Post-operative change: None. Acute change: No evidence of an acute infarct or other acute parenchymal process. Hemorrhage: No evidence of acute intracranial hemorrhage. ECASS hemorrhagic transformation score: Not Applicable Mass Lesion / Mass Effect: There is no evidence of an intracranial mass or extraaxial fluid collection. No significant mass effect. Chronic change: Patchy foci of low attenuation are present within the supratentorial white matter, a nonspecific finding that most commonly represents moderate small vessel disease. Parenchyma: There is mild generalized volume loss. The brain parenchyma is otherwise within normal limits for age. Ventricles: Ventricular enlargement concordant with the degree of parenchymal volume loss. Paranasal sinuses and skull base: The visualized paranasal sinuses are grossly clear. The skull base and imaged soft tissues are unremarkable. IMPRESSION IMPRESSION: 1. No CT evidence of an acute intracranial process. 2. Moderate sequela of chronic microvascular ischemia and mild diffuse parenchymal volume loss. Telegrapher Agent: PSCB Transcribe Date/Time: Aug 23 2024 5:32P Dictated by : LEEANNA TRUJILLO MD This examination was interpreted and the report reviewed and electronically signed by: LEEANNA TRUJILLO MD on Aug 23 2024 5:33PM EST Aron Ruiz MD CT-PAMA Final Result * XR CHEST 1V FRONTAL PORT (08/23/2024 2:00 PM EDT) Anatomical Region Laterality Modality Chest Radiographic Lisa ging 08/23/2024 1:54 PM EDT Impressions 08/23/2024 2:21 PM EDT IMPRESSION: Lines, tubes, and devices: None. Lungs and pleura: Interval slight increase in size of the large right pleural effusion compared to prior exam. Complete of the lung with the exception of a portion of the right upper lobe, which is increased in hazy opacity likely related to atelectasis. No left-sided pleural effusion or consolidation. No pneumothorax. Cardiomediastinal silhouette: Stable cardiomediastinal silhouette. Other: The thoracic musculoskeletal structures and upper abdomen are not significantly changed. Telegrapher Agent: SRINI Transcribe Date/Time: Aug 23 2024 2:06P Dictated by : STEVEN HEADLEY MD This examination was interpreted and the report reviewed and electronically signed by: GARFIELD THEODORE MD on Aug 23 2024 2:19PM EST Narrative 08/23/2024 2:21 PM EDT * * *Final Report* * * DATE OF EXAM: Aug 23 2024 1:54PM [id number] - XR CHEST 1V FRONTAL PORT / PROCEDURE REASON: Shortness of breath * * * * Physician Interpretation * * * * EXAMINATION: CHEST RADIOGRAPH (PORTABLE SINGLE VIEW AP) Exam Date/Time: 08/23/2024 1:54 PM CLINICAL HISTORY: Shortness of breath MQ: XCPR_5 Comparison: Chest radiograph 05/23/2024 RESULT: See impression. Procedure Note Provider, [facility] [place] - 08/23/2024 * * *Final Report* * * DATE OF EXAM: Aug 23 2024 1:54PM [id number] [id number] - XR CHEST 1V FRONTAL PORT / PROCEDURE REASON: Shortness of breath * * * * Physician Interpretation * * * * EXAMINATION: CHEST RADIOGRAPH (PORTABLE SINGLE VIEW AP) Exam Date/Time: 08/23/2024 1:54 PM CLINICAL HISTORY: Shortness of breath MQ: XCPR_5 Comparison: Chest radiograph 05/23/2024 RESULT: See impression. IMPRESSION IMPRESSION: Lines, tubes, and devices: None. Lungs and pleura: Interval slight increase in size of the large right pleural effusion compared to prior exam. Complete of the lung with the exception of a portion of the right upper lobe, which is increased in hazy opacity likely related to atelectasis. No left-sided pleural effusion or consolidation. No pneumothorax. Cardiomediastinal silhouette: Stable cardiomediastinal silhouette. Other: The thoracic musculoskeletal structures and upper abdomen are not significantly changed. Telegrapher Agent: SRINI Transcribe Date/Time: Aug 23 2024 2:06P Dictated by : STEVEN HEADLEY MD This examination was interpreted and the report reviewed and electronically signed by: GARFIELD THEODORE MD on Aug 23 2024 2:19PM EST Alejo Blanco MD RAD-PAMA Final Result * (ABNORMAL) SEPSIS LACTATE W/ REFLEX (INITIAL) (08/23/2024 1:14 PM EDT) Sepsis Lactate 2.6(H) <=2.0 mmol/L 08/23/2024 1:39 PM EDT [facility] Blood BLOOD SPECIMEN / Unknown Venipuncture / Unknown 08/23/2024 1:14 PM EDT 08/23/2024 1:23 PM EDT Roge Coughlin MD LABORATORY Final Result [facility] [address] [facility] [address] [address], [place] * (ABNORMAL) LIPID PANEL BASIC (04/29/2024 8:17 AM EST) Pathologist [facility] Cholesterol, Total 160 <200 mg/dL 04/29/2024 10:12 AM EST [facility] Comment: <200 mg/dL, Desirable 200-239 mg/dL, Borderline high >239 mg/dL, High Triglyceride 53 <150 mg/dL 04/29/2024 10:12 AM EST [facility] Comment: <150 mg/dL, Normal 150-199 mg/dL, Borderline high 200-499 mg/dL, High >499 mg/dL, Very high HDL Cholesterol 41 >39 mg/dL 10:12 AM EST [facility] Comment: 40-59 mg/dL, Acceptable >59 mg/dL, High: Negative risk factor for coronary heart disease <40 mg/dL, Low: Positive risk factor for coronary heart disease Non HDL Cholesterol 119 <130 mg/dL 04/29/2024 10:12 AM EST [facility] Comment: <130 mg/dL, Optimal 130-159 mg/dL, Near optimal/above optimal 160-189 mg/dL, Borderline high 190-219 mg/dL, High >219 mg/dL, Very high Secondary prevention optimal non HDL Cholesterol levels are recommended to be <100 mg/dL Fasting Time 12 hrs 04/29/2024 10:12 AM EST [facility] VLDL Cholesterol 11 <30 mg/dL 04/29/19 25 10:12 AM EST [facility] TC:HDL Ratio 3.90 <5.10 04/29/2024 10:12 AM EST [facility] LDL Cholesterol, Calculated 108(H) <100 mg/dL 04/29/2024 10:12 AM EST [facility] Comment: <100 mg/dL, Optimal 100-129 mg/dL, Near optimal/above optimal 130-159 mg/dL, Borderline high 160-189 mg/dL, High >189 mg/dL, Very high Secondary prevention optimal LDL Cholesterol levels are recommended to be < 70 mg/dL LDL:HDL Ratio 2.63(H) <2.54 04/29/2024 10:12 AM EST [facility] Comment: Reference: 1. National Cholesterol Education Program ATP III Guideline At-A-Glance Quick Desk Reference: National Heart, Lung, and Blood [place]. National Institutes of Health. 2001: NIH Publication No. 01-3305. 2. An International Atherosclerosis Society position paper: global recommendations for the management of dyslipidemia: executive summary, Atherosclerosis. 2014: 232(2):410-413. Blood BLOOD SPECIMEN / Unknown Venipuncture / Unknown 04/29/2024 8:17 AM EST 04/29/2024 8:19 AM EST us Connie Garg MD LABORATORY Final Result Performing Organization Address City/State/[facility] Co de Phone Number [facility] [address] [address], from Last 3 Months or Most Recently Relevant to Health Maintenance Insurance [employer] A[employer] MEDICARE Mail Code [id number] [place] [id number] [employer] * Guarantor: CHARLES BLANDON Account Type Relation to Patient Date of Phone Billing Address P/F [facility] [address] [place] [address] [employer] * Guarantor: CHARLES BLANDON Type Relation to Patient Date of Phone Billing Address P[facility] [address] [place] [address] [employer] * Guarantor: CHARLES BLANDON Account Type Relation to Patient Date of Phone Billing Address P[facility] [address] [place] [address] [employer] * Guarantor: CHARLES BLANDON Account Type Relation to Patient Date of Phone Billing Address P[facility] [address] [place] [address] [employer] * Guarantor: CHARLES BLANDON Account Type Relation to Patient Date of Phone Billing Address P[facility] [address] [place] [address] [employer] Member Subscriber Plan / Payer (Ef fective for All Dates) Name:Charles Blandon Member ID:Not on file Relation to Subscriber:Parent Name:CHARLES BLANDON JR Subscriber ID:[id number] Date of :1955 Address: [place] [address] Payer ID:Not on file Group ID:Not on file Type:Other Address: 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 Advance Directive(s) 10/08/2024 3:04 PM * Full Code (Latest Code Status on File) Date Activated Date Inactivated Comments 10/16/2024 1:21 PM 10/30/2024 10:09 PM Question Answer Comments Full Code Order Discussed With: Discussion Not M edically Appropriate * Full Code Date Activated Date Inactivated Comments 09/09/2024 7:40 PM 09/29/2024 8:28 PM Question Answer Comments Full Code Order Discussed With: Discussion Not M edically Appropriate * Full Code Date Activated Date Inactivated Comments 08/23/2024 5:32 PM 09/09/2024 4:42 PM Question Answer Comments Full Code Order Discussed With: Patient Care Teams Trace Evidence Technician Relationship Specialty Start Date End Date Rusty Delgado II, MD [address] [facility] [address] [place] [address] PCP - General Internal Medicine 05/28/24 Irena Johnson MD [address] [place] [address] Referring Gastroenterology 03/12/24 Vanessa Aorra MD [address] [place], [place] [id number] Primary Staff Physician Cardiology 05/02/24 Carina Ziegler, RN [facility] [address] [facility] [place] [place] [address] Registered Nurse Transplant Center 09/17/24
--- OUTSIDE RECORDS SUMMARY | 2024-11-19 02:26 | XMS_ITS | Encounter Summary ---
Author Organization [facility] Address [address] [place] [address] Care Team Providers Care Food Safety Field Specialist Name Role Phone Rusty Delgado MD Unavailable [phone] Rusty Delgado MD Primary Care Provider [phone] Encounter Details Date Type Department Care Team (Late st Contact Info) Description 11/13/2024 Clinisync Result Encounter [facility] External Department Unsolicited [...] Never 12/12/2023 How often do you attend holiness or church serv ices? Never 12/12/2023 Do you belong to any clubs o r organizations such as holiness groups, unions, fraternal or athletic groups, or [...] Recorded Patient Health Questionnaire-2 Score 0 08/19/2024 [facility] Occupat ional Health - Occupational Stress [...] any time in the past 12 m [facility], were you homeless or living in a fdc (including now)? No 12/12/2023 Sex and Gender [...] EDT Office Visit [facility] [place] [address] [facility] 110 [place] [address] Rusty Delgado MD 112 [facility] 110 [place] [address] documented as of this encounter Procedures Procedure Name Priority Date/Time Associated Diagnosis Comments ERCP 11/13/2024 1:11 PM EDT documented in this encounter Results * ERCP (11/13/2024 1:11 PM EDT) Anatomical Region Laterality Modality Other 11/13/2024 1:11 PM EDT Narrative 11/13/2024 3:25 PM EDT Q3 Patient Name: Charles Stewart Procedure Date: 11/13/2024 1:11 PM Date of : 1955 Admit Type: Outpatient Age: 69 Gender: Male Note Status: Finalized Attending MD: Jane Correia MD, [id number] Procedure: ERCP Indications: Common bile duct stone(s), [...] administered by the anesthesia team. Findings: A donor services manager film of the abdomen was obtained. [...] none. Recommendation: - Discharge patient to a prison. - Resume previous diet. - Cipro (ciprofloxacin) 500 mg PO BID for 5 days. - Repeat ERCP for stent removal n 3 months. Procedure Code(s): --- Professional --- 71162, Endoscopic retrograde cholangiopancreatography (ERCP); with removal of calculi/debris from biliary/pancreatic duct(s) 36251, Endoscopic catheterization of the biliary ductal system, radiological supervision and interpretation Diagnosis Code(s): --- Professional --- Z96.89, Presence of other specified functional implants K80.51, Calculus of bile duct without cholangitis or cholecystitis with obstruction Z09, Encounter for follow-up examination after completed treatment for conditions other than malignant neoplasm Z94.4, Liver transplant status CPT copyright 2020 [place] [employer]. All rights reserved. Attending Participation: I was present and participated during the entire procedure, including non-david portions. 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 Findings: A donor services manager film of the abdomen was obtained. [...] none. Recommendation: - Discharge patient to a prison. - Resume previous diet. - Cipro (ciprofloxacin) 500 mg PO BID for 5 days. - Repeat ERCP for stent removal n 3 months. Procedure Code(s): --- Professional --- 26741, Endoscopic retrograde cholangiopancreatography (ERCP); with removal of calculi/debris from biliary/pancreatic duct(s) 04533, Endoscopic catheterization of the biliary ductal system, radiological supervision and interpretation Diagnosis Code(s): --- Professional --- Z96.89, Presence of other specified functional implants K80.51, Calculus of bile duct without cholangitis or cholecystitis with obstruction Z09, Encounter for follow-up examination after completed treatment for conditions other than malignant neoplasm Z94.4, Liver transplant status CPT copyright 2020 [place] [employer]. All rights reserved. Attending Participation: I was present and participated during the entire procedure, including non-david portions. Scope In: 2:57:12 PM Scope Out: 3:17:12 PM MD Jane Alexander MD 11/13/2024 3:25:50 PM This report has been signed electronically by Jane Correia MD Number of Addenda: 0 Note Initiated On: 11/13/2024 1:11 PM Generic External Data Provider [facility] Final Result documented in this encounter Visit Diagnoses Not on filedocumented in this encounter Care Teams Food Safety Field Specialist Relationship Specialty Start Date End Date Rusty Delgado MD [address] [facility] [address] [place] [address] PCP - [employer] 04/17/22 Rusty Delgado MD [address] [facility] [address] [place] [address] PCP - General Internal Medicine 11/23/22 documented as of this encounter
--- OUTSIDE RECORDS SUMMARY | 2024-11-19 02:26 | XMS_ITS | Encounter Summary ---
Author Organization [facility] Address [address] [place] [address] Care Team Providers Care Metal Mold Dresser Name Role Phone Irena Johnson MD Unavailable Vanessa Arora MD Unavailable [phone] [place] WONG MD, Rusty Gomez Primary Care Provider [phone] Carina Ziegler RN Unavailable Unavailable Source Comments In the event this information is protected by the Federal Confidentiality of Alcohol and Drug AbusePatient Records regulations: The Federal rules restrict any use of the information to criminally investigate or prosecute any alcohol or drug abuse patient.[facility] Reason for Visit * Reason Comments Referral - Liver Txp Encounter Details Date Type Department Care Team (Late st Contact Info) Description 03/25/2024 Telephone Transplant Center [address] [phone] Sofya Hussein Referral - Liver Txp Social History Tobacco Use Types Packs/Day Years [...] of Assessment Author No 08/28/2014 2:34 PM EDT Bebe Chavez MA documented as of this encounter Mental Status * Because of a physical, mental, or emotional condition, do you have serious difficulty concentrating, remembering, or making decisions? Answer Entry Date Author No 08/28/2014 2:34 PM Bebe Gutierrez MA documented in this encounter Miscellaneous Notes * Telephone Encounter - Sofya Hussein - 03/25/2024 1:27 PM EST Patients returning call to start liver transplant evaluation. documented in this encounter Plan of Treatment Upcoming Encounters Date Type Department Care Team (Late st Contact Info) Description 11/21/2024 4:00 PM EDT Office Visit Transplant Center [address] [phone] KAYLIE ARELLANO 11/21/2024 5:40 PM EDT Appointment MRI Q [address] [place] [id number] Compression fracture of cervical spine, non-traumatic, with delayed healing, subsequent encounter [M48.52XG] 11/21/2024 6:20 PM EDT Appointment MRI Q [address] [address] Compression fracture of cervical spine, non-traumatic, with delayed healing, subsequent encounter [M48.52XG] 11/21/2024 7:00 PM EDT Appointment MRI Q [address] [address] Compression fracture of cervical spine, non-traumatic, with delayed healing, subsequent encounter [M48.52XG] 02/03/2025 9:00 AM EDT [facility] Neurology [address] [place] [address] Devyn Roach MD [address] [place] [address] Vertigo [R42] 02/10/2025 11:00 AM EDT Appointment Gastroenterology [address] [address] Jane Correia MD [address] [place] [address] Schedule in about 3 months to remove [...] documented as of this encounter Care Teams Metal Mold Dresser Relationship Specialty Start Date End Date Rusty Delgado II, MD [address] [place] [address] PCP - General Internal Medicine 05/28/24 Irena Johnson MD [address] [facility] [address] [place] [address] Referring Gastroenterology 03/12/24 Vanessa Arora MD [address] [place] [address] Primary Staff Physician Cardiology 05/02/24 Carina Ziegler, RN [facility] [address] [place] [address] Registered Nurse Transplant Center 09/17/24 documented as of this encounter
--- OUTSIDE RECORDS SUMMARY | 2024-11-19 02:26 | XMS_ITS | Encounter Summary ---
Author Organization [facility] Address [address] [place] [address] Care Team Providers Care Siphoner Name Role Phone Rusty Delgado MD Unavailable [phone] Rusty Delgado MD Primary Care Provider [phone] Encounter Details Date Type Department Care Team (Late st Contact Info) Description 11/08/2024 Clinisync Result Encounter [facility] External Department Unsolicited [...] Never 12/12/2023 How often do you attend christian or mormon serv ices? Never 12/12/2023 Do you belong to any clubs o r organizations such as christian groups, unions, fraternal or athletic groups, or [...] Recorded Patient Health Questionnaire-2 Score 0 08/19/2024 [facility] of Occupat ional Health - Occupational Stress [...] time in the past 12 m [facility], were you homeless or living in a mcc (including now)? No 12/12/2023 Sex and Gender [...] Office Visit [facility] [place] [address] [facility] 110 [place] [address] Rusty Delgado MD [address] [facility] 110 [place] [address] documented as of this encounter Procedures Procedure Name Priority Date/Time Associated Diagnosis Comments [facility] PHOSPHATE SERPL-MCNC Routine 11/08/2024 5:21 AM EDT [facility] BAS METAB 2000 PNL SERPL Routine 11/08/2024 5:21 AM EDT [facility] ALBUMIN SERPL-MCNC Routine 11/08/2024 5:21 AM EDT [facility] MAGNESIUM SERPL-MCNC Routine 11/08/2024 5:21 AM EDT documented in this encounter Results * [facility] PHOSPHATE SERPL-MCNC (11/08/2024 5:21 AM EDT) [facility] PHOSPHATE SERPL-MCNC 4.4 2.7 - 4.8 mg/dL [facility] 11/08/2024 5:21 AM EDT 11/08/2024 7:52 AM EDT Narrative [facility] - 11/08/2024 8:26 AM EDT Specimen Type: BLOOD SPECIMEN Ordering Facility: [facility] Address: [address] [place] [address] Original Ordering Provider: CAMILA PALMER Generic External Data Provider [facility] F inal Result Performing Organization Address [facility] de Phone Number MALLORY [address] [phone] * [facility] MAGNESIUM SERPL-MCNC (11/08/2024 5:21 AM EDT) [facility] MAGNESIUM SERPL-MCNC 2.1 1.7 - 2.3 mg/dL [facility] 11/08/2024 5:21 AM EDT 11/08/2024 7:52 AM EDT Narrative CLINISYNC - 11/08/2024 8:26 AM EDT Specimen Type: BLOOD SPECIMEN Ordering Facility: [facility] Address: [address] [place] [address] Original Ordering Provider: CAMILA PALMER Generic External Data Provider [facility] F inal Result Performing Organization Address [facility] de Phone Number MALLORY DIA [address] [place] [phone] * (ABNORMAL) [facility] BAS METAB 2000 PNL SERPL (11/08/2024 5:21 AM EDT) [facility] GLUCOSE SERPL-MCNC 92 74 - 99 mg/dL C[facility] Comment: The [place] Diabetes Association (ADA) provides guidance for cutoff [...] Standards of Medical Care in Diabetes 2016, [place] Diabetes Association. Diabetes Care. 2016.39(Suppl 1). [facility] BUN SERPL-MCNC 17 9 - 24 mg/dL CCF [facility] CREAT SERPL-MCNC 1.55(H) 0.73 - 1.22 mg/dL CCF CCF SODIUM SERPL-SCNC 135(L) 136 - 144 mmol/L CCF CCF POTASSIUM SERPL-SCNC 4.6 3.7 - 5.1 mmol/L CCF CCF CHLORIDE SERPL-SCNC 97(L) 98 - 107 mmol/L CCF CCF CO2 SERPL-SCNC 27 22 - 30 mmol/L CCF CCF ANION GAP SERPL-SCNC 11 8 - 15 mmol/L CCF CCF CALCIUM SERPL-MCNC 9.0 8.5 - 10.2 mg/dL CCF EGFRCR SERPLBLD CKD-EPI 2020 48(L) >=60 mL/min/1. 73m??? CCF Comment:Estimated Glomerular Filtration [...] eGFR may not accurately reflect actual GFR. 11/08/2024 5:21 AM EDT 11/08/2024 7:52 AM EDT Dionne TEJADA - 11/08/2024 8:26 AM EDT Specimen Type: BLOOD SPECIMEN Ordering Facility: [facility] Address: [address] [place] [address] Original Ordering Provider: KELL TIRADO Generic External Data Provider MALLORY uribe Result [facility] [address] [place] [address] * (ABNORMAL) [facility] ALBUMIN SERPL-MCNC (11/08/2024 5:21 AM EDT) [facility] ALBUMIN SERPL-MCNC 3.4(L) 3.9 - 4.9 g/dL [facility] 11/08/2024 5:21 AM EDT 11/08/2024 7:52 AM EDT Narrative CLINISYNC - 11/08/2024 8:26 AM EDT Specimen Type: BLOOD SPECIMEN Ordering Facility: [facility] Address: [address] [place] [address] Original Ordering Provider: CAMILA PALMER us Generic External Data Provider [facility] F inal Result Performing Organization Address City/State/[facility] Co de Phone Number [facility] CCF [address] [place] [phone] documented in this encounter Visit Diagnoses Not on filedocumented in this encounter Care Teams Siphoner Relationship Specialty Start Date End Date Rusty Delgado MD [address] [facility] [address] [place] [address] PCP - [employer] 04/17/22 Rusty Delgado MD [address] [facility] [address] [place] [address] PCP - General Internal Medicine 11/23/22 documented as of this encounter
--- OUTSIDE RECORDS SUMMARY | 2024-11-19 02:26 | XMS_ITS | Encounter Summary ---
Author Organization [facility] Address [address] [place] [address] Care Team Providers Care Saxophone Player Name Role Phone Rusty Delgado MD Unavailable [phone] Rusty Delgado MD Primary Care Provider [phone] Encounter Details Date Type Department Care Team (Late st Contact Info) Description 11/07/2024 Clinisync Result Encounter [facility]S External Department Unsolicited [...] Never 12/12/2023 How often do you attend denominational or shinto serv ices? Never 12/12/2023 Do you belong to any clubs o r organizations such as denominational groups, unions, fraternal or athletic groups, or [...] any time in the past 12 m [facility], were you homeless or living in a skilled nursing (including now)? No 12/12/2023 Sex and Gender [...] 11:00 AM EDT Office Visit [facility] [place] [address] [place] [address] [place] [address] Rusty Delgado MD [address] [facility] 110 [place] [address] documented as of this encounter Procedures Procedure Name Priority Date/Time Associated Diagnosis Comments [facility] TACROLIMUS BLD-MCNC Routine 11/07/2024 10:56 AM EDT [facility] PHOSPHATE SERPL-MCNC Routine 11/07/2024 10:56 AM EDT CCF NT-PROBNP SERPL-MCNC Routine 11/07/2024 10:56 AM EDT CCF GGT SERPL-CCNC Routine 11/07/2024 10 :56 AM EDT C[facility] CRP SERPL-MCNC Routine 11/07/2024 10 :56 AM EDT CCF CBC W AUTO DIFF BLD Routine 11/07/2024 10:56 AM EDT [facility] MAGNESIUM SERPL-MCNC Routine 11/07/2024 10:56 AM EDT CCF COMP METAB 2000 PNL SERPL Routine 11/07/2024 10:56 AM EDT documented in this encounter Results * (ABNORMAL) [facility] GGT SERPL-CCNC (11/07/2024 10:56 AM EDT) [facility] GGT SERPL-CCNC 98(H) 10 - 70 U/L [facility] 11/07/2024 10:5 6 AM EDT 11/07/2024 2:47 PM EDT Narrative CLINISYNC - 11/07/2024 11:09 PM EDT Specimen Type: BLOOD SPECIMEN Ordering Facility: [facility] Address: [address] [place] [address] Original Ordering Provider: DAVID BLACKBURN us Generic External Data Provider [facility] F inal Result Performing Organization Address [facility] de Phone Number [facility]ake[facility] CC [address] [place] [address] * [facility]CF TACROLIMUS BLD-MCNC (11/07/2024 10:56 AM EDT) Pathologist [facility] C[facility] TACROLIMUS BLD-MCNC 8.6 5.0 - 20.0 ng/mL CCF Comment:Individualized targe t levels for a given [...] situation. Test performed by chemiluminescent immunoassay using [employer]. 11/07/2024 10:5 6 AM EDT 11/07/2024 5:17 PM EDT Narrative CLINISYNC - 11/07/2024 7:56 PM EDT Specimen Type: BLOOD SPECIMEN Ordering Facility: [facility] Address: [address] [place] [address] Original Ordering Provider: DAVID BLACKBURN us Generic External Data Provider CL[facility] F inal Result Performing Organization Address [facility]/ZIP Co de Phone Number MALLORY SOMMER [address] [facility] [address] [place] [address] * [facility] MAGNESIUM SERPL-MCNC (11/07/2024 10:56 AM EDT) [facility] MAGNESIUM SERPL-MCNC 2.0 1.7 - 2.3 mg/dL [facility] 11/07/2024 10:5 6 AM EDT 11/07/2024 11:40 AM EDT Narrative CLINISYNC - 11/07/2024 2:50 PM EDT Specimen Type: BLOOD SPECIMEN Ordering Facility: [facility] Address: [address] [place] [address] Original Ordering Provider: DAVID BLACKBURN Generic External Data Provider [facility] F inal Result Performing Organization Address [facility] de Phone Number MALLORY DIA [address] [place] [address] * (ABNORMAL) C[facility] CRP SERPL-MCNC (11/07/2024 10:56 AM EDT) [facility] CRP SERPL-MCNC 17.2(H) <0.9 mg/dL [facility] 11/07/2024 10:5 6 AM EDT 11/07/2024 11:40 AM EDT Narrative CLINISYNC - 11/07/2024 2:50 PM EDT Specimen Type: BLOOD SPECIMEN Ordering Facility: [facility] Address: [address] [place] [address] Original Ordering Provider: DAVID BLACKBURN Generic External Data Provider CL[facility] F inal Result Performing Organization Address [facility] de Phone Number MALLORY DIA [address] [place] [phone] * (ABNORMAL) [facility] COMP METAB 2000 PNL SERPL (11/07/2024 10:56 AM EDT) C[facility] PROT SERPL-MCNC 5.4(L) 6.3 - 8.0 g/dL CCF C[facility] ALBUMIN SERPL-MCNC 3.0(L) 3.9 - 4.9 g/dL CCF CCF CALCIUM SERPL-MCNC 8.8 8.5 - 10.2 mg/dL CCF CCF BILIRUB SERPL-MCNC 0.3 0.2 - 1.3 mg/dL CCF CCF ALP SERPL-CCNC 156(H) 38 - 113 U/L CCF CCF AST SERPL-CCNC 18 14 - 40 U/L CCF CCF ALT SERPL-CCNC 12 10 - 54 U/L CCF CCF GLUCOSE SERPL-MCNC 77 74 - 99 mg/dL CCF Comment: The [place] Islander Diabetes [...] [place] Diabetes Association. Diabetes Care. 2016.39(Suppl 1). [facility] BUN SERPL-MCNC 16 9 - 24 mg/dL CCF CCF CREAT SERPL-MCNC 1.50(H) 0.73 - 1.22 mg/dL CCF CCF SODIUM SERPL-SCNC 136 136 - 144 mmol/L CCF CCF POTASSIUM SERPL-SCNC 4.8 3.7 - 5.1 mmol/L CCF CCF CHLORIDE SERPL-SCNC 96(L) 98 - 107 mmol/L CCF CCF CO2 SERPL-SCNC 24 22 - 30 mmol/L CCF CCF ANION GAP SERPL-SCNC 16(H) 8 - 15 mmol/L CCF EGFRCR SERPLBLD [...] eGFR may not accurately reflect actual GFR. 11/07/2024 10:5 6 AM EDT 11/07/2024 11:40 AM EDT Narrative KALYNNC - 11/07/2024 2:50 PM EDT Specimen Type: BLOOD SPECIMEN Ordering Facility: [facility] Address: [address] [place] [address] Original Ordering Provider: DAVID BLACKBURN us Generic External Data Provider [facility] F inal Result [facility]C CCF [address] [place] [phone] * (ABNORMAL) [facility]CF CBC W AUTO DIFF BLD (11/07/2024 10:56 AM EDT) CCF WBC # BLD AUTO 3.16(L) 3.70 - 11.00 k/uL CCF CCF RBC # BLD AUTO 2.48(L) 4.20 - 6.00 m/uL CCF CCF HGB BLD-MCNC 7.5(L) 13.0 - 17.0 g/dL CCF CCF HCT VFR BLD AUTO 23.7(L) 39.0 - 51.0 % CCF CCF MCV RBC AUTO 95.6 80.0 - 100.0 fL CCF CCF MCH RBC QN AUTO 30.2 26.0 - 34.0 pg CCF CCF MCHC RBC AUTO-MCNC 31.6 30.5 - 36.0 g/dL CCF CCF RDW RBC-RTO 17.9(H) 11.5 - 15.0 % CCF CCF PLATELET # BLD AUTO 580(H) 150 - 400 k/uL CCF CCF PMV BLD AUTO 9.3 9.0 - 12.7 fL CCF CCF NRBC/100 WBC BLD-RTO 0.0 /100 WBC CCF CCF NRBC # BLD AUTO <0.01 <0.01 k/uL CCF CCF NEUTROPHILS/LEUK NFR BLD AUTO 76.0 % CCF CCF NEUTROPHILS # BLD AUTO 2.40 1.45 - 7.50 k/uL CCF CCF LYMPHOCYTES/LEUK NFR BLD AUTO 14.0 % CCF CCF LYMPHOCYTES # BLD AUTO 0.44(L) 1.00 - 4.00 k/uL CCF CCF MONOCYTES/LEUK NFR BLD AUTO 5.0 % CCF CCF MONOCYTES # BLD AUTO 0.16 <0.87 k/uL CCF CCF EOSINOPHIL/LEUK NFR BLD AUTO 1.0 % CCF CCF EOSINOPHIL # BLD AUTO 0.03 <0.46 k/uL CCF CCF BASOPHILS/LEUK NFR BLD AUTO 3.0 % CCF CCF BASOPHILS # BLD AUTO 0.09 <0.11 k/uL CCF CCF META% 1.0 % CCF CCF WBC LEFT SHIFT BLD QL AUTO Present CCF PLATELET # BLD EST Increased CCF CCF RED CELL MORPH Reviewed: see results of individual morphologies CCF CCF ANISOCYTOSIS Present CCF CCF DIFFERENTIAL METHOD BLD Manual [facility]CF 11/07/2024 10:5 6 AM EDT 11/07/2024 11:44 AM EDT Narrative CLINISYNC - 11/07/2024 12:39 PM EDT Specimen Type: BLOOD SPECIMEN Ordering Facility: [facility] Address: [address] [place] [address] Original Ordering Provider: DAVID BLACKBURN us Generic External Data Provider MALLORY uribe Result Performing Organization Address City/State/[facility] Co de Phone Number [facility]CF [address] [place] [address] * (ABNORMAL) CCF NT-PROBNP SERPL-MCNC (11/07/2024 10:56 AM EDT) CCF NT-PROBNP SERPL-MCNC 365(H) <125 pg/mL CCF 11/07/2024 10:5 6 AM EDT 11/07/2024 11:40 AM EDT Narrative CLINISYNC - 11/07/2024 12:15 PM EDT Specimen Type: BLOOD SPECIMEN Ordering Facility: [facility] Address: [address] [place] [address] Original Ordering Provider: DAVID BLACKBURN us Generic External Data Provider CLIN[facility] F inal Result Performing Organization Address [facility] de Phone Number MALLORY CCF [address] [place] [address] * CCF PHOSPHATE SERPL-MCNC (11/07/2024 10:56 AM EDT) CCF PHOSPHATE SERPL-MCNC 4.6 2.7 - 4.8 mg/dL CCF 11/07/2024 10:5 6 AM EDT 11/07/2024 11:39 AM EDT Narrative CLINISYNC - 11/07/2024 12:00 PM EDT Specimen Type: BLOOD SPECIMEN Ordering Facility: [facility] Address: [address] [place] [address] Original Ordering Provider: DAVID BLACKBURN us Generic External Data Provider CLIN[facility] F inal Result Performing Organization Address [facility] de Phone Number CL[facility]ISYNC CC [address] [place] [address] documented in this encounter Visit Diagnoses Not on filedocumented in this encounter Care Teams Saxophone Player Relationship Specialty Start Date End Date Rusty Delgado MD [address] [facility] 110 [place] [address] PCP - [employer] 04/17/22 Rusty Delgado MD [address] [place] [address] [place] [address] PCP - General Internal Medicine 11/23/22 documented as of this encounter
--- OUTSIDE RECORDS SUMMARY | 2024-11-19 02:26 | XMS_ITS | Encounter Summary ---
Author Organization [facility] Address [address] [place] [address] Care Team Providers Care Hydraulic Plumber Helper Name Role Phone Irena Johnson MD Unavailable Vanessa rAora MD Unavailable Danny WONG MD, Rusty Gomez Primary Care Provider [phone] Carina Ziegler RN Unavailable Unavailable Source Comments In the event this information is protected by the Federal Confidentiality of Alcohol and Drug AbusePatient Records regulations: The Federal rules restrict any use of the information to criminally investigate or prosecute any alcohol or drug abuse patient.[facility] Encounter Details Date Type Department Care Team (Late st Contact Info) Description 12/09/2023 Lab Requisition [facility] [address] [place] [address] Devyn Winter, DO [address] [place] [address] Social History Tobacco Use Types Packs/Day Years [...] PM EDT Office Visit Transplant Center [address] [address] [place] LASHAWN ARELLANO 11/21/2024 5:40 PM EDT Appointment MRI Q [address] [address] Compression fracture of cervical spine, non-traumatic, with delayed healing, subsequent encounter [M48.52XG] 11/21/2024 6:20 PM EDT Appointment MRI Q [address] [address] Compression fracture of cervical spine, non-traumatic, with delayed healing, subsequent encounter [M48.52XG] 11/21/2024 7:00 PM EDT Appointment MRI Q [address] [address] Compression fracture of cervical spine, non-traumatic, with delayed healing, subsequent encounter [M48.52XG] 02/03/2025 9:00 AM EDT [facility] [address] [place] [address] Devyn Roach MD [address] [place] [address] Vertigo [R42] 02/10/2025 11:00 AM EDT Appointment Gastroenterology [address] [address] Jane Correia MD [address] [place] [address] Schedule in about 3 months to remove biliary stent documented as of this encounter Procedures Procedure Name Priority Date/Time Associated Diagnosis Comments BACTERIAL CULTURE AND GRAM STAIN, STERILE BODY FLUID Routine 12/08/2023 7:58 AM EDT documented in this encounter Results * BODY FLUID CULTURE AND GRAM STAIN (12/08/2023 7:58 AM EDT) Culture, Body Fld No growth MINIMUM INHIBITORY CONCENTRATIO N(VITEK) 12/14/2023 12:48 PM EDT [facility] Gram Stain No organisms seen 024 12:48 PM EDT [facility] Gram Stain Few Polymorphonuclear leukocytes 12/14/2023 12:48 PM EDT [facility] Gram Stain Gram stain performed on cytospun specimen. 12/14/2023 12:48 PM EDT [facility] Gram Stain Gram stain from primary specimen 12/14/2023 12:48 PM EDT [facility] Sterile Fluid/Body Fluid PLEURAL FLUID / Unknown 12/08/2023 7:58 AM EDT 12/09/2023 12:30 AM EDT us Devyneze Winter MICROBIOLOGY Final Result [facility] [address] [facility] Desk [address] [place] [address], [place] documented in this encounter Visit Diagnoses Not [...] documented as of this encounter Care Teams Hydraulic Plumber Helper Relationship Specialty Start Date End Date Rusty Delgado II, MD 112 [facility] 110 [place] [address] PCP - General Internal Medicine 05/28/24 Irena Johnson MD 3000 [facility] 1620 [facility] [place] [phone] Referring Gastroenterology 03/12/24 Vanessa Arora MD [address] [place] [address] Primary Staff Physician Cardiology 05/02/24 Carina Ziegler, RN [facility] [address] [place] [address] Registered Nurse Transplant Center 09/17/24 documented as of this encounter
--- OUTSIDE RECORDS SUMMARY | 2024-11-19 02:26 | XMS_ITS | Encounter Summary ---
Author Organization [facility] Address [address] [place] [address] Care Team Providers Care Bag Sorter Name Role Phone Rusty Delgado MD Unavailable [phone] Rusty Delgado MD Primary Care Provider [phone] Encounter Details Date Type Department Care Team (Late st Contact Info) Description 11/14/2024 Clinisync Result Encounter [facility] External Department Unsolicited [...] Never 12/12/2023 How often do you attend methodist or jehovah's witness serv ices? Never 12/12/2023 Do you belong to any clubs o r organizations such as methodist groups, unions, fraternal or athletic groups, or [...] Recorded Patient Health Questionnaire-2 Score 0 08/19/2024 [facility] - Occupational [...] any time in the past 12 m [facility], were you homeless or living in a snf (including now)? No 12/12/2023 Sex and Gender [...] Visit [facility] Tone Whitten [address] [facility] 110 [place] [address] Rusty Delgado MD [address] [facility] [address] [place] [address] documented as of this encounter Procedures Procedure Name Priority Date/Time Associated Diagnosis Comments CCF TACROLIMUS BLD-MCNC Routine 11/14/2024 3:30 AM EDT CCF PHOSPHATE SERPL-MCNC Routine 11/14/2024 3:30 AM EDT CCF NT-PROBNP SERPL-MCNC Routine 11/14/2024 3:30 AM EDT CCF GGT SERPL-CCNC Routine 11/14/2024 3: 30 AM EDT CCF CRP SERPL-MCNC Routine 11/14/2024 3: 30 AM EDT CCF CBC W AUTO DIFF BLD Routine 11/14/2024 3:30 AM EDT CCF MAGNESIUM SERPL-MCNC Routine 11/14/2024 3:30 AM EDT CCF COMP METAB 2000 PNL SERPL Routine 11/14/2024 3:30 AM EDT documented in this encounter Results * CCF GGT SERPL-CCNC (11/14/2024 3:30 AM EDT) CCF GGT SERPL-CCNC 70 10 - 70 U/L CCF 11/14/2024 3:30 AM EDT 11/14/2024 1:11 PM EDT Narrative CLINISYNC - 11/14/2024 5:57 PM EDT Specimen Type: BLOOD SPECIMEN Ordering Facility: [facility] Address: [address] [place] [address] Original Ordering Provider: DAVID BLACKBURN Generic External Data Provider CLINISYNC F inal Result Performing Organization Address [facility] de Phone Number MALLORY CC [address] [place] [address] * CCF TACROLIMUS BLD-MCNC (11/14/2024 3:30 AM EDT) Pathologist [facility] CCF TACROLIMUS BLD-MCNC 10.2 5.0 - 20.0 ng/mL CCF Comment:Individualized targe [...] situation. Test performed by chemiluminescent immunoassay using [employer] i. 11/14/2024 3:30 AM EDT 11/14/2024 2:16 PM EDT Narrative CLINISYNC - 11/14/2024 5:31 PM EDT Specimen Type: BLOOD SPECIMEN Ordering Facility: [facility] Address: [address] [place] [address] Original Ordering Provider: DAVID BLACKBURN Generic External Data Provider CLINISYNC F inal Result Performing Organization Address [facility] Co de Phone Number CLINISYNC CC [address] [address] [place] [address] * (ABNORMAL) CCF CBC W AUTO DIFF BLD (11/14/2024 3:30 AM EDT) [facility] CCF WBC # BLD AUTO 2.59(L) 3.70 - 11.00 k/uL CCF CCF RBC # BLD AUTO 2.40(L) 4.20 - 6.00 m/uL CCF CCF HGB BLD-MCNC 7.2(L) 13.0 - 17.0 g/dL CCF CCF HCT VFR BLD AUTO 23.9(L) 39.0 - 51.0 % CCF CCF MCV RBC AUTO 99.6 80.0 - 100.0 fL CCF CCF MCH RBC QN AUTO 30.0 26.0 - 34.0 pg CCF CCF MCHC RBC AUTO-MCNC 30.1(L) 30.5 - 36.0 g/dL CCF CCF RDW RBC-RTO 19.1(H) 11.5 - 15.0 % CCF CCF PLATELET # BLD AUTO 507(H) 150 - 400 k/uL CCF CCF PMV BLD AUTO 9.1 9.0 - 12.7 fL CCF CCF NEUTROPHILS/LEUK NFR BLD AUTO 74.2 % CCF CCF NEUTROPHILS # BLD AUTO 1.92 1.45 - 7.50 k/uL CCF CCF LYMPHOCYTES/LEUK NFR BLD AUTO 15.8 % CCF CCF LYMPHOCYTES # BLD AUTO 0.41(L) 1.00 - 4.00 k/uL CCF CCF MONOCYTES/LEUK NFR BLD AUTO 3.1 % CCF CCF MONOCYTES # BLD AUTO 0.08 <0.87 k/uL CCF CCF EOSINOPHIL/LEUK NFR BLD AUTO 0.4 % CCF CCF EOSINOPHIL # BLD AUTO <0.03 <0.46 k/uL CCF CCF BASOPHILS/LEUK NFR BLD AUTO 2.3 % CCF CCF BASOPHILS # BLD AUTO 0.06 <0.11 k/uL CCF IMM GRANULOCYTES/LEUK NFR BLD AUTO 4.2 % CCF IMM GRANULOCYTES # BLD AUTO 0.11(H) <0.10 k/uL CCF CCF NRBC/100 WBC BLD-RTO 1.2 /100 WBC CCF CCF NRBC # BLD AUTO 0.03(H) <0.01 k/uL CCF CCF DIFFERENTIAL METHOD BLD Auto CCF 11/14/2024 3:30 AM EDT 11/14/2024 9:09 AM EDT Narrative CLINISYNC - 11/14/2024 11:54 AM EDT Specimen Type: BLOOD SPECIMEN Ordering Facility: [facility] Address: [address] [place] [address] Original Ordering Provider: DAVID BLACKBURN Generic External Data Provider CLINISYNC F inal Result Performing Organization Address [facility] de Phone Number REIDISYNC CC [address] [place] [address] * CCF MAGNESIUM SERPL-MCNC (11/14/2024 3:30 AM EDT) CCF MAGNESIUM SERPL-MCNC 2.1 1.7 - 2.3 mg/dL CCF 11/14/2024 3:30 AM EDT 11/14/2024 9:09 AM EDT Narrative CLINISYNC - 11/14/2024 11:32 AM EDT Specimen Type: BLOOD SPECIMEN Ordering Facility: [facility] Address: [address] [place] [address] Original Ordering Provider: DAVID BLACKBURN Generic External Data Provider CLINISYNC F inal Result Performing Organization Address [facility] de Phone Number CLINISYNC CC [address] [place] [address] * (ABNORMAL) CCF CRP SERPL-MCNC (11/14/2024 3:30 AM EDT) CCF CRP SERPL-MCNC 20.7(H) <0.9 mg/dL CCF 11/14/2024 3:30 AM EDT 11/14/2024 9:09 AM EDT Narrative CLINISYNC - 11/14/2024 11:32 AM EDT Specimen Type: BLOOD SPECIMEN Ordering Facility: [facility] Address: [address] [place] [address] Original Ordering Provider: DAVID BLACKBURN us Generic External Data Provider KALYNGARRICK Jaxon inaeric Result MALLORY SOMMER [address] [address] [address] [id number] * (ABNORMAL) CCF COMP METAB 2000 PNL SERPL (11/14/2024 3:30 AM EDT) CCF PROT SERPL-MCNC 5.7(L) 6.3 - 8.0 g/dL CCF CCF ALBUMIN SERPL-MCNC 2.8(L) 3.9 - 4.9 g/dL CCF CCF CALCIUM SERPL-MCNC 8.6 8.5 - 10.2 mg/dL CCF CCF BILIRUB SERPL-MCNC 0.2 0.2 - 1.3 mg/dL CCF CCF ALP SERPL-CCNC 136(H) 38 - 113 U/L CCF CCF AST SERPL-CCNC 25 14 - 40 U/L CCF CCF ALT SERPL-CCNC 12 10 - 54 U/L CCF CCF GLUCOSE SERPL-MCNC 113(H) 74 - 99 mg/dL CCF Comment: The [place] Diabetes Association (ADA) provides guidance for cutoff [...] Standards of Medical Care in Diabetes 2016, [place] Diabetes Association. Diabetes Care. 2016.39(Suppl 1). CCF BUN SERPL-MCNC 20 9 - 24 mg/dL CCF CCF CREAT SERPL-MCNC 1.40(H) 0.73 - 1.22 mg/dL CCF CCF SODIUM SERPL-SCNC 134(L) 136 - 144 mmol/L CCF CCF POTASSIUM SERPL-SCNC 5.9(H) 3.7 - 5.1 mmol/L CCF CCF CHLORIDE SERPL-SCNC 102 98 - 107 mmol/L CCF CCF CO2 SERPL-SCNC 22 22 - 30 mmol/L CCF CCF ANION GAP SERPL-SCNC 10 8 - 15 mmol/L CCF EGFRCR SERPLBLD CKD-EPI 2020 54(L) >=60 mL/min/1. 73m??? CCF Comment:Estimated Glomerular Filtration [...] eGFR may not accurately reflect actual GFR. 11/14/2024 3:30 AM EDT 11/14/2024 9:09 AM EDT Narrative CLINISYNC - 11/14/2024 11:32 AM EDT Specimen Type: BLOOD SPECIMEN Ordering Facility: [facility] Address: [address] [place] [address] Original Ordering Provider: DAVID BLACKBURN Generic External Data Provider MALLORY uribe Result CLINYI CC [address] [address] [id number] * (ABNORMAL) CCF NT-PROBNP SERPL-MCNC (11/14/2024 3:30 AM EDT) CCF NT-PROBNP SERPL-MCNC 543(H) <125 pg/mL CCF 11/14/2024 3:30 AM EDT 11/14/2024 9:09 AM EDT Narrative CLINISYNC - 11/14/2024 11:01 AM EDT Specimen Type: BLOOD SPECIMEN Ordering Facility: [facility] Address: [address] [place] [address] Original Ordering Provider: DAVID BLACKBURN us Generic External Data Provider CLINISYNC F inal Result Performing Organization Address [facility] de Phone Number MALLORY CCJaxon [address] [place] [address] * (ABNORMAL) CCF PHOSPHATE SERPL-MCNC (11/14/2024 3:30 AM EDT) CCF PHOSPHATE SERPL-MCNC 4.9(H) 2.7 - 4.8 mg/dL CCF 11/14/2024 3:30 AM EDT 11/14/2024 9:09 AM EDT Narrative CLINISYNC - 11/14/2024 10:46 AM EDT Specimen Type: BLOOD SPECIMEN Ordering Facility: [facility] Address: [address] [place] [address] Original Ordering Provider: DAVID BLACKBURN Generic External Data Provider CLINISYNC F inal Result Performing Organization Address [facility] de Phone Number MALLORY CC [address] [place] [address] documented in this encounter Visit Diagnoses Not on filedocumented in this encounter Care Teams Bag Sorter Relationship Specialty Start Date End Date Rusty Delgado MD [address] [facility] [address] [place] [address] PCP - [employer] 04/17/22 Rusty Delgado MD [address] [facility] [address] [place] [address] PCP - General Internal Medicine 11/23/22 documented as of this encounter
--- OUTSIDE RECORDS SUMMARY | 2024-11-19 02:26 | XMS_ITS | Encounter Summary ---
Author Organization [facility] Address [address] [place] [address] Care Team Providers Care Spring Setter Name Role Phone Rusty Delgado MD Unavailable [phone] Rusty Delgado MD Primary Care Provider [phone] Encounter Details Date Type Department Care Team (Late st Contact Info) Description 11/11/2024 Clinisync Result Encounter [facility] External Department Unsolicited [...] Never 12/12/2023 How often do you attend evangelical or sabianism serv ices? Never 12/12/2023 Do you belong to any clubs o r organizations such as evangelical groups, unions, fraternal or athletic groups, or [...] Recorded Patient Health Questionnaire-2 Score 0 08/19/2024 [facility] - [...] were you homeless or living in a [place] (including now)? No 12/12/2023 Sex and Gender [...] Visit [facility]S Danny Whitten [address] [facility] 110 [place] [address] Rusty Delgado MD [address] [facility] 110 [place] [address] documented as of this encounter Procedures Procedure Name Priority Date/Time Associated Diagnosis Comments CCF TACROLIMUS BLD-MCNC Routine 11/11/2024 5:06 AM EDT CCF PHOSPHATE SERPL-MCNC Routine 11/11/2024 5:06 AM EDT CCF NT-PROBNP SERPL-MCNC Routine 11/11/2024 5:06 AM EDT CCF GGT SERPL-CCNC Routine 11/11/2024 5: 06 AM EDT CCF CRP SERPL-MCNC Routine 11/11/2024 5: 06 AM EDT CCF CMV DNA DETECTION AND QUANT Routine 11/11/2024 5:06 AM EDT CCF CBC W AUTO DIFF BLD Routine 11/11/2024 5:06 AM EDT CCF MAGNESIUM SERPL-MCNC Routine 11/11/2024 5:06 AM EDT CCF COMP METAB 2000 PNL SERPL Routine 11/11/2024 5:06 AM EDT documented in this encounter Results * CCF CMV DNA DETECTION AND QUANT (11/11/2024 5:06 AM EDT) CCF CMV DNA PLAS JESSICA+PROBE-ACN C Not detected Not Detected CCF 11/11/2024 5:0 6 AM EDT 11/11/2024 1:39 PM EDT Narrative CLINISYNC - 11/11/2024 10:07 PM EDT Specimen Type: BLOOD SPECIMEN Ordering Facility: [facility] Address: [address] [place] [address] Original Ordering Provider: DAVID BLACKBURN Generic External Data Provider MALLORY F inal Result KALYNGARRICK CC [address] [id number] * CCF TACROLIMUS BLD-MCNC (11/11/2024 5:06 AM EDT) CCF TACROLIMUS BLD-MCNC 11.5 5.0 - 20.0 ng/mL CCF Comment:Individualized targe [...] situation. Test performed by chemiluminescent immunoassay using [employer] Al[employer] i. 11/11/2024 5:06 AM EDT 11/11/2024 1:39 PM EDT Narrative CLINISYNC - 11/11/2024 6:13 PM EDT Specimen Type: BLOOD SPECIMEN Ordering Facility: [facility] Address: [address] [place] [address] Original Ordering Provider: DAVID BLACKBURN us Generic External Data Provider CLINISYNC F inal Result Performing Organization Address [facility]/ZIP Co de Phone Number MALLORY SOMMER [address] [facility] [address] [address] * (ABNORMAL) CCF GGT SERPL-CCNC (11/11/2024 5:06 AM EDT) Pathologist [facility] CCF GGT SERPL-CCNC 93(H) 10 - 70 U/L CCF 11/11/2024 5:06 AM EDT 11/11/2024 12:22 PM EDT Narrative CLINISYNC - 11/11/2024 4:05 PM EDT Specimen Type: BLOOD SPECIMEN Ordering Facility: [facility] Address: [address] [place] [address] Original Ordering Provider: DAVID BLACKBURN Generic External Data Provider KALYNNC Jaxon inal Result Performing Organization Address [facility] Co de Phone Number MALLORY SOMMER [address] [address] * (ABNORMAL) CCF CBC W AUTO DIFF BLD (11/11/2024 5:06 AM EDT) Pathologist [facility] CCF WBC # BLD AUTO 3.22(L) 3.70 - 11.00 k/uL CCF CCF RBC # BLD AUTO 2.60(L) 4.20 - 6.00 m/uL CCF CCF HGB BLD-MCNC 8.0(L) 13.0 - 17.0 g/dL CCF CCF HCT VFR BLD AUTO 25.6(L) 39.0 - 51.0 % CCF CCF MCV RBC AUTO 98.5 80.0 - 100.0 fL CCF CCF MCH RBC QN AUTO 30.8 26.0 - 34.0 pg CCF CCF MCHC RBC AUTO-MCNC 31.3 30.5 - 36.0 g/dL CCF CCF RDW RBC-RTO 18.6(H) 11.5 - 15.0 % CCF CCF PLATELET # BLD AUTO 561(H) 150 - 400 k/uL CCF CCF PMV BLD AUTO 9.0 9.0 - 12.7 fL CCF CCF NRBC/100 WBC BLD-RTO 0.0 /100 WBC CCF CCF NRBC # BLD AUTO <0.01 <0.01 k/uL CCF CCF NEUTROPHILS/LEUK NFR BLD AUTO 80.0 % CCF CCF NEUTROPHILS # BLD AUTO 2.58 1.45 - 7.50 k/uL CCF CCF LYMPHOCYTES/LEUK NFR BLD AUTO 7.0 % CCF CCF LYMPHOCYTES # BLD AUTO 0.23(L) 1.00 - 4.00 k/uL CCF CCF MONOCYTES/LEUK NFR BLD AUTO 3.0 % CCF CCF MONOCYTES # BLD AUTO 0.10 <0.87 k/uL CCF CCF EOSINOPHIL/LEUK NFR BLD AUTO 3.0 % CCF CCF EOSINOPHIL # BLD AUTO 0.10 <0.46 k/uL CCF CCF BASOPHILS/LEUK NFR BLD AUTO 4.0 % CCF CCF BASOPHILS # BLD AUTO 0.13(H) <0.11 k/uL CCF CCF META% 3.0 % CCF CCF WBC LEFT SHIFT BLD QL AUTO Present CCF PLATELET # BLD EST Increased CCF CCF RED CELL MORPH Reviewed: see results of individual morphologies CCF CCF POLYCHROMASIA BLD QL SMEAR Slight CCF CCF ANISOCYTOSIS Present CCF CCF OVALOCYTES BLD QL SMEAR Few CCF CCF DIFFERENTIAL METHOD BLD Manual CCF 11/11/2024 5:06 AM EDT 11/11/2024 8:54 AM EDT Narrative REIDISYNC - 11/11/2024 10:13 AM EDT Specimen Type: BLOOD SPECIMEN Ordering Facility: [facility] Address: [address] [place] [address] Original Ordering Provider: DAVID BLACKBURN us Generic External Data Provider MALLORY F inaeric Result CLINISYGARRICK CCF [address] [id number] * CCF MAGNESIUM SERPL-MCNC (11/11/2024 5:06 AM EDT) CCF MAGNESIUM SERPL-MCNC 2.2 1.7 - 2.3 mg/dL CCF 11/11/2024 5:06 AM EDT 11/11/2024 8:54 AM EDT Narrative CLINISYNC - 11/11/2024 10:00 AM EDT Specimen Type: BLOOD SPECIMEN Ordering Facility: [facility] Address: [address] [place] [address] Original Ordering Provider: DAVID BLACKBURN Generic External Data Provider CLINISYNC F inal Result Performing Organization Address [facility] de Phone Number CLINVAMSINC CC [address] [address] [phone] * (ABNORMAL) CCF CRP SERPL-MCNC (11/11/2024 5:06 AM EDT) CCF CRP SERPL-MCNC 16.9(H) <0.9 mg/dL CCF 11/11/2024 5:06 AM EDT 11/11/2024 8:54 AM EDT Narrative CLINISYNC - 11/11/2024 10:00 AM EDT Specimen Type: BLOOD SPECIMEN Ordering Facility: [facility] Address: [address] [place] [address] Original Ordering Provider: DAVID BLACKBURN Generic External Data Provider CLINISYNC F inal Result Performing Organization Address [facility] de Phone Number KALYNNC CC [address] [address] [address] [phone] * (ABNORMAL) CCF COMP METAB 2000 PNL SERPL (11/11/2024 5:06 AM EDT) CCF PROT SERPL-MCNC 5.8(L) 6.3 - 8.0 g/dL CCF CCF ALBUMIN SERPL-MCNC 3.0(L) 3.9 - 4.9 g/dL CCF CCF CALCIUM SERPL-MCNC 8.8 8.5 - 10.2 mg/dL CCF CCF BILIRUB SERPL-MCNC 0.3 0.2 - 1.3 mg/dL CCF CCF ALP SERPL-CCNC 151(H) 38 - 113 U/L CCF CCF AST SERPL-CCNC 19 14 - 40 U/L CCF CCF ALT SERPL-CCNC 11 10 - 54 U/L CCF CCF GLUCOSE SERPL-MCNC 90 74 - 99 mg/dL CCF Comment: The [place] Diabetes Association (ADA) provides guidance for cutoff [...] Standards of Medical Care in Diabetes 2016, [place] Diabetes Association. Diabetes Care. 2016.39(Suppl 1). CCF BUN SERPL-MCNC 18 9 - 24 mg/dL CCF CCF CREAT SERPL-MCNC 1.52(H) 0.73 - 1.22 mg/dL CCF CCF SODIUM SERPL-SCNC 136 136 - 144 mmol/L CCF CCF POTASSIUM SERPL-SCNC 5.0 3.7 - 5.1 mmol/L CCF CCF CHLORIDE SERPL-SCNC 100 98 - 107 mmol/L CCF CCF CO2 [...] eGFR may not accurately reflect actual GFR. 11/11/2024 5:06 AM EDT 11/11/2024 8:54 AM EDT Narrative CLINISYNC - 11/11/2024 10:00 AM EDT Specimen Type: BLOOD SPECIMEN Ordering Facility: [facility] Address: [address] [place] [address] Original Ordering Provider: DAVID BLACKBURN us Generic External Data Provider CLINISYNC F inal Result Performing Organization Address [facility]/ZIP Co de Phone Number KALYNNC CC [address] [address] [address] [phone] * CCF PHOSPHATE SERPL-MCNC (11/11/2024 5:06 AM EDT) CCF PHOSPHATE SERPL-MCNC 3.9 2.7 - 4.8 mg/dL CCF 11/11/2024 5:06 AM EDT 11/11/2024 8:54 AM EDT Narrative CLINISYNC - 11/11/2024 9:53 AM EDT Specimen Type: BLOOD SPECIMEN Ordering Facility: [facility] Address: [address] [place] [address] Original Ordering Provider: DAVID BLACKBURN us Generic External Data Provider CLINISYNC F inal Result Performing Organization Address [facility] de Phone Number KALYNNC CC [address] [place] [address] * (ABNORMAL) CCF NT-PROBNP SERPL-MCNC (11/11/2024 5:06 AM EDT) CCF NT-PROBNP SERPL-MCNC 453(H) <125 pg/mL CCF 11/11/2024 5:06 AM EDT 11/11/2024 8:54 AM EDT Narrative CLINISYNC - 11/11/2024 9:47 AM EDT Specimen Type: BLOOD SPECIMEN Ordering Facility: [facility] Address: [address] [place] [address] Original Ordering Provider: DAVID BLACKBURN us Generic External Data Provider CLINISYNC F inal Result CLINISYNC CCF [address] [address] [phone] documented in this encounter Visit Diagnoses Not on filedocumented in this encounter Care Teams Spring Setter Relationship Specialty Start Date End Date Rusty Delgado MD [address] [facility] 110 [place] [address] PCP - [employer] 04/17/22 Rusty Delgado MD [address] [address] PCP - General Internal Medicine 11/23/22 documented as of this encounter
--- OUTSIDE RECORDS SUMMARY | 2024-11-19 02:27 | XMS_ITS | Encounter Summary ---
Author Organization [facility] Address [address] [facility] [place] [address] Care Team Providers Care Access Analyst Name Role Phone Rusty Delgado MD Unavailable [phone] Rusty Delgado MD Primary Care Provider [phone] Encounter Details Date Type Department Care Team (Late st Contact Info) Description 11/22/2022 Abstract [facility] Danny Whitten [address] [facility] [address] [place] [id number] Rusty Delgado MD [address] [facility] 110 [place] [address] Social History Tobacco Use Types Packs/Day Years Used Date Smoking Tobacco: Former Cigarettes Q uit: 1989 Smokeless Tobacco: Never Tobacco Cessation:Counseling Given: Not Answered Sex and Gender Information Value Date Recorded [...] Visit [facility] Danny Whitten [address] [facility] [address] [place] [phone] Rusty Delgado MD [address] [facility] 110 [place], [place] [phone] documented as of this encounter Visit Diagnoses Not on filedocumented in this encounter Care Teams Access Analyst Relationship Specialty Start Date End Date Rusty Delgado MD [address] [facility] 110 [place] [address] PCP - [employer] 04/17/22 Rusty Delgado MD [address] [facility] 110 [place] [address] PCP - General Internal Medicine 11/23/22 documented as of this encounter
--- OUTSIDE RECORDS SUMMARY | 2024-11-19 02:27 | XMS_ITS | Encounter Summary ---
Author Organization [facility] Address [facility] [place] [address] Care Team Providers Care Director Clinical Research Name Role Phone Irena Johnson MD Unavailable Vanessa Arora MD Unavailable [place] WONG MD, Rusty Gomez Primary Care Provider [phone] Carina Ziegler RN Unavailable Unavailable Source Comments In the event this information is protected by the Federal Confidentiality of Alcohol and Drug AbusePatient Records regulations: The Federal rules restrict any use of the information to criminally investigate or prosecute any alcohol or drug abuse patient.[facility] Encounter Details Date Type Department Care Team (Late st Contact Info) Description 06/05/2024 Patient Msg Transplant Center [address] [phone] Yesica Bright RN Ultra sound results Social History Tobacco Use Types Packs/Day Years [...] risk 7 04/25/2024 Data from: https://www.neighborhoodatlas.medicine.[facility]/. Last address used for calculation Eugene Villanueva [...] EDT Office Visit Transplant Center [address] [address] KAYLIE ARELLANO 11/21/2024 5:40 PM EDT Appointment MRI Q [address] [address] Compression fracture of cervical spine, non-traumatic, with delayed healing, subsequent encounter [M48.52XG] 11/21/2024 6:20 PM EDT Appointment MRI Q [address] [address] Compression fracture of cervical spine, non-traumatic, with delayed healing, subsequent encounter [M48.52XG] 11/21/2024 7:00 PM EDT Appointment MRI Q [address] [address] Compression fracture of cervical spine, non-traumatic, with delayed healing, subsequent encounter [M48.52XG] 02/03/2025 9:00 AM EDT [facility] Neurology 9300 [place] [address] Devyn Roach MD 9500 [place] [address] Vertigo [R42] 02/10/2025 11:00 AM EDT Appointment Gastroenterology [address] [address] Jane Correia MD 9500 [place] [address] Schedule in about 3 months to remove [...] documented as of this encounter Care Teams Director Clinical Research Relationship Specialty Start Date End Date Rusty Delgado II, MD 112 [facility] 110 [place] [address] PCP - General Internal Medicine 05/28/24 Irena Johnson MD 3000 [facility] 1620 [place] [address] Referring Gastroenterology 03/12/24 Vanessa Arora MD [address] [place], [place] [id number] Primary Staff Physician Cardiology 05/02/24 Carina Ziegler RN [facility] 9305 [place] [address] Registered Nurse Transplant Center 09/17/24 documented as of this encounter
--- OUTSIDE RECORDS SUMMARY | 2024-11-19 02:27 | XMS_ITS | Patient Health Record ---
Author Organization [facility] Address Main Office [address] [place] [address] Care Team Providers Care Casey Saw Operator Name Role Phone ANTHONY MORAN Primary Care Provider Reason For Referral No Information Medications Medication SIG (Take, Route, Frequency, Duration) Notes Start Date End Date Status Metoprolol Tartrate 50 MG Oral take 1 Tablet by Oral route 1 time per day 12/24/2018 Active Colcrys 0.6 MG Oral take 2 tablets b y Oral route initially, then take 1 tab (0.6 mg ) in 1 hr 1 tab daily if symptoms persist 12/24/2018 Active Omeprazole 40 MG 1 capsule 30 minutes before morning meal Orally Once a day; Duration: 30 day(s) take 1 capsule (40 mg) by oral route once daily before a meal 12/24/2018 Active Zolpidem Tartrate 10 MG Oral take 0.5 tablet by Oral route at bedtime 1 per night PRN as needed for sleep 07/26/2018 Active Ibuprofen 800 MG Oral Take 1 tablet b y Oral route 3 times per day PRN 11/15/2018 Active Lisinopril 20 MG 1 tablet Orally Once a day; Duration: 30 day(s) take 1 tablet (20 mg) by oral route once daily 12/24/2018 Active Immunizations Vaccine Route Administration Date Status Comme nts Moderna SARS Covid-19 Vaccine IM Intramuscular 05/27/2020 Administered Moderna SARS Covid-19 Vaccine IM Intramuscular 06/24/2020 Administered influenza, injectable, quadrivalent, preservative free IM Intramuscular 02/10/2019 Administered Problems Problem Type SNOMED Code ICD Code Onset Dates Problem Status W/U Status Risk Notes Problem Essential hypertension (39405698) Essential (primary) hypertension (I10) 9 Active confirmed Problem Primary gout (50409746) Idiopathic gout, unspecified ankle and foot (M10.079) 9 Active confirmed Problem Inflammation of bursa of olecranon (133726835) Olecranon bursitis, right elbow (M70.21) 9 Active confirmed Problem Hyperglycemia due to type 2 diabetes mellitus (485039379695443) DIABETES MELLITUS WITH HYPERGLYCEMIA, TYPE 2 (E11.65) 9 Active confirmed Problem Essential hypertension (24352305) ESSENTIAL HYPERTENSION (I10) 9 Active confirmed Problem Body mass index 30.00 to 34.99 (761442366189663) BMI 32.0-32.9, ADULT (Z68.32) 9 Active confirmed Problem Vertigo (652073719) VERTIGO (R42) 9 Active confirmed Plan Of Treatment No Information Insurance Providers Payer Name Payer Address Payer Phone Subscriber Number Group Number Insured Name Patient Relationship to Insured Coverage Start Date Coverage End Date MEDICARE [place] [address] [place] [phone] [id number] LOYD BLANDON Self - patient is the insured 9 9 MEDICARE [employer] [address] [address] [place], [place] [id number] LOYD BLANDON Self - patient is the insured
--- OUTSIDE RECORDS SUMMARY | 2024-11-19 02:27 | XMS_ITS | Encounter Summary ---
Author Organization [facility] Address [address] [place] [address] Care Team Providers Care Coagulating Bath Operator Name Role Phone Rusty Delgado MD Unavailable [phone] Rusty Delgado MD Primary Care Provider Encounter Details Date Type Department Care Team (Late st Contact Info) Description 12/13/2023 Abstract [facility] [place] [facility] [address] [facility] 110 [place] [phone] Rusty Delgado MD 112 [facility] 110 [place] [address] Social History Tobacco Use Types [...] Never 12/12/2023 How often do you attend confucianism or catholic serv ices? Never 12/12/2023 Do you belong to any clubs o r organizations such as confucianism groups, unions, fraternal or athletic groups, or [...] and heating? Not hard at all 12/12/2023 [facility] - Occupational [...] any time in the past 12 m [facility], were you homeless or living in a fci (including now)? No 12/12/2023 Sex and Gender [...] [address] [facility] 110 [place] [address] Rusty Delgado MD [address] [facility] 110 [place] [address] documented as of this encounter Visit Diagnoses Not on filedocumented in this encounter Care Teams Coagulating Bath Operator Relationship Specialty Start Date End Date Rusty Delgado MD [address] [facility] 110 [place] [address] PCP - [employer] 04/17/22 Rusty Delgado MD [address] [facility] 110 [place] [address] PCP - General Internal Medicine 11/23/22 documented as of this encounter
--- OUTSIDE RECORDS SUMMARY | 2024-11-19 02:27 | XMS_ITS | Encounter Summary ---
Author Organization [facility] Address [address] [place] [address] Care Team Providers Care Lamp Cleaner Street Light Name Role Phone Rusty Delgado MD Unavailable [phone] Rusty Delgado MD Primary Care Provider [phone] Encounter Details Date Type Department Care Team (Late st Contact Info) Description 12/13/2023 Abstract [facility] [place] [facility] [address] [facility] 110 [place] [phone] Rusty Delgado MD 112 [facility] 110 [place] [address] Social History Tobacco Use Types [...] Never 12/12/2023 How often do you attend jainism or spiritism serv ices? Never 12/12/2023 Do you belong to any clubs o r organizations such as jainism groups, unions, fraternal or athletic groups, or [...] and heating? Not hard at all 12/12/2023 [facility] - Occupational [...] any time in the past 12 m [facility], were you homeless or living in a fpc (including now)? No 12/12/2023 Sex and Gender [...] Visit [facility] [place] [address] [facility] 110 [place] [address] Rusty Delgado MD [address] [facility] 110 [place] [address] documented as of this encounter Visit Diagnoses Not on filedocumented in this encounter Care Teams Lamp Cleaner Street Light Relationship Specialty Start Date End Date Rusty Delgado MD [address] [facility] 110 [place] [address] PCP - [employer] 04/17/22 Rusty Delgado MD [address] [facility] 110 [place] [address] PCP - General Internal Medicine 11/23/22 documented as of this encounter
--- OUTSIDE RECORDS SUMMARY | 2024-11-19 02:27 | XMS_ITS | Encounter Summary ---
Author Organization [facility] Address [address] [place] [address] Care Team Providers Care Laborer Yard Name Role Phone Rusty Delgado MD Unavailable [phone] Rusty Delgado MD Primary Care Provider Encounter Details Date Type Department Care Team (Late st Contact Info) Description 11/18/2024 Abstract [facility] [place] [facility] [address] [facility] 110 [place] [phone] Rusty Delgado MD 112 [facility] 110 [place] [address] Social History Tobacco Use Types [...] Never 12/12/2023 How often do you attend cheondoism or mormon serv ices? Never 12/12/2023 Do you belong to any clubs o r organizations such as cheondoism groups, unions, fraternal or athletic groups, or [...] Recorded Patient Health Questionnaire-2 Score 0 08/19/2024 [facility] - Occupational Stress Questionnaire Answer [...] living in a detention (including now)? No 12/12/2023 Sex and Gender [...] Visit [facility] [place] Whitten [address] [facility] 110 [place] [address] Rusty Delgado MD [address] [email or web address] 110 [place] [address] documented as of this encounter Visit Diagnoses Not on filedocumented in this encounter Care Teams Laborer Yard Relationship Specialty Start Date End Date Rusty Delgado MD [address] [facility] [[email or web address] 110 [place] [address] PCP - [employer] 04/17/22 Rusty Delgado MD [address] [facility] [address] [place] [address] PCP - General Internal Medicine 11/23/22 documented as of this encounter
--- OUTSIDE RECORDS SUMMARY | 2024-11-19 02:27 | XMS_ITS | Encounter Summary ---
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 No 02/19/2024 Humiliation, Afraid, Rape, and Kick questionnair e Answer Date Recorded Within the last year, have y ou been afraid of your partner or ex-partner? No 03/08/2024 Within the last year, have y ou been humiliated or emotionally abused in other ways by your partner or ex-partner? No Within the last year, have y ou been kicked, hit, slapped, or otherwise physically hurt by your partner or ex-partner? No 03/08/2024 Within the last year, have y ou been raped or forced to have any kind of sexual activity by your partner or ex-partner? No 03/08/2024 Overall Financial Resource Strain (CARDIA) Answe r Date Recorded How hard is it for you to pa y for the very basics like food, housing, medical care, and heating? Not hard at all 02/19/2024 PHQ-2 Answer Date Recorded Patient Health Questionnaire-2 Score 0 03/08/2024 Transportation Answer Date Recorded In the past 12 months, has l ack of transportation kept you from medical appointments or from getting medications? No 02/19/2024 Lack of Transportation (Non-Medical) Not on file 02/19/2024 Housing Stability Vital Sign Answer Karl e Recorded Unable to Pay for Housing in the Last Year Not o n file 02/19/2024 Number of Places Lived in the Last Year Not on f ile 02/19/2024 In the last 12 months, was t here a time when you did not have a steady place to sleep or slept in a chcf (including now)? No 02/19/2024 Hunger Vital Sign Answer Date Recorded Within the past 12 months, y ou worried that your food would run out before you got the money to buy more. Never true 02/19/20 24 Ran Out of Food in the Last Year Not on file 02/19/2024 Sex and Gender Information Value Date Recorded Sex Assigned at Male 08/07/2023 10:44 AM EDT Legal Sex Male 8:09 AM EDT Gender Identity Male 08/07/2023 10:44 AM EDT Sexual Orientation Heterosexual or Straight 07/17 10:44 AM EDT documented as of this encounter Miscellaneous Notes * Telephone Encounter - Arias Miles MD - 07/23/2024 12:35 PM EDT Approving, but needs appt for additional refills. 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
--- OUTSIDE RECORDS SUMMARY | 2024-11-19 02:27 | XMS_ITS | Encounter Summary ---
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 No 02/19/2024 Hunger Vital Sign [...] encounter Miscellaneous Notes * Telephone Encounter - Abbi Simmons LPN - 06/25/2024 9:02 AM EDT Approving, but needs appt for additional refills. 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
--- OUTSIDE RECORDS SUMMARY | 2024-11-19 02:27 | XMS_ITS | Encounter Summary ---
Author Organization [facility] Address [facility] [place] [address] Care Team Providers Care Portainer Operator Name Role Phone Irena Johnson MD Unavailable Vanessa Arora MD Unavailable [place] WONG MD, Rusty Gomez Primary Care Provider [phone] Carina Ziegler RN Unavailable Unavailable Source Comments In the event this information is protected by the Federal Confidentiality of Alcohol and Drug AbusePatient Records regulations: The Federal rules restrict any use of the information to criminally investigate or prosecute any alcohol or drug abuse patient.[facility] Encounter Details Date Type Department Care Team (Late st Contact Info) Description 06/13/2024 Get Medical Advice Transplant Center [address] [address] Yesica Bright RN Liver transplant list Social History Tobacco Use Types Packs/Day Years [...] lower risk 7 04/25/2024 Data from: https://www.neighborhoodatlas.medicine.[facility]/. Last address used for calculation Eugene Villanueva [...] EDT Office Visit Transplant Center [address] [address] KAYLIE ARELLANO 11/21/2024 5:40 PM EDT Appointment MRI Q [address] [address] Compression fracture of cervical spine, non-traumatic, with delayed healing, subsequent encounter [M48.52XG] 11/21/2024 6:20 PM EDT Appointment MRI Q [address] [address] Compression fracture of cervical spine, non-traumatic, with delayed healing, subsequent encounter [M48.52XG] 11/21/2024 7:00 PM EDT Appointment MRI Q [address] [address] Compression fracture of cervical spine, non-traumatic, with delayed healing, subsequent encounter [M48.52XG] 02/03/2025 9:00 AM EDT [facility] Neurology 9300 [place] [address] Devyn Roach MD 9500 [place] [address] Vertigo [R42] 02/10/2025 11:00 AM EDT Appointment Gastroenterology [address] [address] Jane Correia MD 9500 [place] [address] Schedule in about 3 months to remove biliary stent documented as of this encounter Goals Goal Patient Goal Type Associated Problems Recent Progress Patient-Stated? 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 Other specified forms of effusion, except tuberculous Shortness of breath documented in this encounter Additional Health Concerns Infection Onset Date Last Indicated Resolved Time COVID-19 Rule-Out 09/08/2024 09/08/2024 09/08/2024 6:09 PM EDT COVID-19 Rule-Out 10/08/2024 10/08/2024 10/09/2024 1:41 AM EDT Respiratory Rule-Out 10/08/2024 10/08/2024 025 1:41 AM EDT Parainfluenza Virus Comment:Asymptomatic per RN 10/08/2024 10/08/2024 10/28/2024 8 :47 AM EDT documented as of this encounter Care Teams Portainer Operator Relationship Specialty Start Date End Date Rusty Delgado II, MD 112 [facility] 110 [place] [address] PCP - General Internal Medicine 05/28/24 Irena Johnson MD 3000 [facility] 1620 [place] [phone] Referring Gastroenterology 03/12/24 Vanessa Arora MD 9605 [place] [address] Primary Staff Physician Cardiology 05/02/24 Carina Ziegler, RN [facility] [address] [facility] [place] [address] Registered Nurse Transplant Center 09/17/24 documented as of this encounter
--- OUTSIDE RECORDS SUMMARY | 2024-11-19 02:27 | XMS_ITS | Encounter Summary ---
Author Organization [facility] Address [address] [place] [address] Care Team Providers Care Wax Pourer Name Role Phone Irena Johnson MD Unavailable Vanessa Arora MD Unavailable [phone] [place] WONG MD, Rusty Gomez Primary Care Provider [phone] Carina Ziegler RN Unavailable Unavailable Source Comments In the event this information is protected by the Federal Confidentiality of Alcohol and Drug AbusePatient Records regulations: The Federal rules restrict any use of the information to criminally investigate or prosecute any alcohol or drug abuse patient.[facility] Encounter Details Date Type Department Care Team (Late st Contact Info) Description 05/03/2024 Get Medical Advice Transplant Center [address] [address] Connie Garg MD 1423 [place] [address] 04-29-24 visit on meds and lab Social History Tobacco Use Types Packs/Day Years [...] is lower risk 7 04/25/2024 Data from: https://www.neighborhoodatlas.medicine.[facility]/. Last address used for calculation Eugene Genao [...] 4:00 PM EDT Office Visit Transplant Center [address] [place] [address] KAYLIE ARELLANO 11/21/2024 5:40 PM EDT Appointment MRI Q [address] [address] Compression fracture of cervical spine, non-traumatic, with delayed healing, subsequent encounter [M48.52XG] 11/21/2024 6:20 PM EDT Appointment MRI Q [address] [address] Compression fracture of cervical spine, non-traumatic, with delayed healing, subsequent encounter [M48.52XG] 11/21/2024 7:00 PM EDT Appointment MRI Q [address] [address] Compression fracture of cervical spine, non-traumatic, with delayed healing, subsequent encounter [M48.52XG] 02/03/2025 9:[address] [facility] Neurology 9[address] [place] [address] Devyn Roach MD [address] [place] [id number] Vertigo [R42] 02/10/2025 11:00 AM EDT Appointment Gastroenterology [address] [address] Jane Correia MD 9500 [place] [address] Schedule in about 3 months to remove [...] 10/09/2024 1:41 AM EDT Respiratory Rule-Out 10/08/2024 10/08/202425/2 025 1:41 AM EDT Parainfluenza Virus Comment:Asymptomatic per RN 10/08/2024 10/08/2024 10/28/2024 8 :47 AM EDT documented as of this encounter Care Teams Wax Pourer Relationship Specialty Start Date End Date Rusty Delgado II, MD 112 [facility] 110 [place] [address] PCP - General Internal Medicine 05/28/24 Irena Johnson MD [address] [facility] 1620 [facility] [place] [address] Referring Gastroenterology 03/12/24 Vanessa Arora MD [address] [place] [address] Primary Staff Physician Cardiology 05/02/24 Carina Ziegler, [facility] [address] [place] [address] Registered Nurse Transplant Center 09/17/24 documented as of this encounter
--- OUTSIDE RECORDS SUMMARY | 2024-11-19 02:27 | XMS_ITS | Encounter Summary ---
Author Organization [facility] Address [address] [facility] [place] [address] Care Team Providers Care Video System Repairer Name Role Phone Rusty Delgado MD Unavailable [phone] Rusty Delgado MD Primary Care Provider Encounter Details Date Type Department Care Team (Late st Contact Info) Description 04/26/2023 Abstract [facility] [place] [address] [place] [address] [place] [phone] Rusty Delgado MD 112 [facility] 110 [place], [place] [id number] Social History Tobacco Use Types Packs/Day Years Used Date Smoking Tobacco: Former Cigarettes Q uit: 1989 Smokeless Tobacco: Never Sex and Gender Information Value Date Recorded [...] Visit [facility] [place] [address] [place] [address] [place] [address] Rusty Delgado MD 112 [facility] 110 [place], [place] [address] documented as of this encounter Visit Diagnoses Not on filedocumented in this encounter Care Teams Video System Repairer Relationship Specialty Start Date End Date Rusty Delgado MD 112 [facility] 110 [place] [address] PCP - Aeterin 04/17/22 Rusty Delgado MD 112 [facility] 110 [place] [address] PCP - General Internal Medicine 11/23/22 documented as of this encounter
--- OUTSIDE RECORDS SUMMARY | 2024-11-19 02:27 | XMS_ITS | Encounter Summary ---
Author Organization [facility] Address [address] [place] [address] Care Team Providers Care Engine Tester Name Role Phone Rusty Delgado MD Unavailable [phone] Rusty Delgado MD Primary Care Provider [phone] Encounter Details Date Type Department Care Team (Late st Contact Info) Description 12/11/2023 Abstract [facility] [place] Gerard Medince [address] [facility] 110 [place] [phone] Rusty Delgado MD 112 [facility] 110 [place] [address] Social History Tobacco Use Types [...] Never 12/12/2023 How often do you attend samaritan or shinto serv ices? Never 12/12/2023 Do you belong to any clubs o r organizations such as samaritan groups, unions, fraternal or athletic groups, or [...] and heating? Not hard at all 12/12/2023 [facility] - Occupational [...] PM EDT documented as of this encounter Functional Status * Audit-C Score Answer Date of Assessment Author 0 12/12/2023 1:46 PM EDT Mychart, Generic * Q1: How often do you have a drink containing alcohol? Answer Date of Assessment Author Never 12/12/2023 1:46 PM EDT Mychart, Generic * Q2: How many drinks containing alcohol do you have on a typical day when you are drinking? Answer Date of Assessment Author Patient does not drink 12/12/2023 1:46 PM EDT My chart, Generic * Q3: How often do you have six or more drinks on one occasion? Answer Date of Assessment Author Never 12/12/2023 1:46 PM EDT Mychart, Generic documented as of this encounter Plan of Treatment Upcoming Encounters Date Type Department Care Team (Late st Contact Info) Description 11/20/2024 11:00 AM EDT Office Visit [facility] [place] Whitten [address] [place] [address] [place] [address] Rusty Delgado MD [address] [place] [address] [place] [address] documented as of this encounter Visit Diagnoses Not on filedocumented in this encounter Care Teams Engine Tester Relationship Specialty Start Date End Date Rusty Delgado MD [address] [place] [address] [place] [address] PCP - [employer] 04/17/22 Rusty Delgado MD 112 [facility] 110 [place] [address] PCP - General Internal Medicine 11/23/22 documented as of this encounter
--- OUTSIDE RECORDS SUMMARY | 2024-11-19 02:27 | XMS_ITS | Encounter Summary ---
Author Organization [facility] Address [facility] [place] [address] Care Team Providers Care Rodent Exterminator Name Role Phone Irena Johnson MD Unavailable Vanessa Arora MD Unavailable [phone] Danny WONG MD, Rusty Gomez Primary Care Provider [phone] Carina Ziegler RN Unavailable Unavailable Source Comments In the event this information is protected by the Federal Confidentiality of Alcohol and Drug AbusePatient Records regulations: The Federal rules restrict any use of the information to criminally investigate or prosecute any alcohol or drug abuse patient.[facility] Encounter Details Date Type Department Care Team (Late st Contact Info) Description 05/20/2024 Get Medical Advice Transplant Center [address] [id number] Yesica Bright RN Cervical MRI Social History Tobacco Use Types Packs/Day Years [...] is lower risk 7 04/25/2024 Data from: https://www.neighborhoodatlas.medicine.[facility]/. Last address used for calculation Eugene Genao [...] EDT Office Visit Transplant Center [address] [address] KAYLIE ARELLANO 11/21/2024 5:40 PM EDT Appointment MRI Q 2049 [place] [address] Compression fracture of cervical spine, non-traumatic, with delayed healing, subsequent encounter [M48.52XG] 11/21/2024 6:20 PM EDT Appointment MRI Q [address] [address] Compression fracture of cervical spine, non-traumatic, with delayed healing, subsequent encounter [M48.52XG] 11/21/2024 7:00 PM EDT Appointment MRI Q [address] [address] Compression fracture of cervical spine, non-traumatic, with delayed healing, subsequent encounter [M48.52XG] 02/03/2025 9:00 AM EDT [facility] 9300 [place] [address] Devyn Roach MD 9500 [place] [address] Vertigo [R42] 02/10/2025 11:00 AM EDT Appointment Gastroenterology [address] [address] Jane Correia MD [address]00 [place] [address] Schedule in about 3 months to remove [...] documented as of this encounter Care Teams Rodent Exterminator Relationship Specialty Start Date End Date Rusty Delgado II, MD 112 [facility] 110 [place] [address] PCP - General Internal Medicine 05/28/24 Irena Johnson MD [address] [facility] [address] [place] [phone] Referring Gastroenterology 03/12/24 Vanessa Arora MD [address] [place] [address] Primary Staff Physician Cardiology 05/02/24 Carina Ziegler, RN [facility] [address] [place] [address] Registered Nurse Transplant Center 09/17/24 documented as of this encounter
--- OUTSIDE RECORDS SUMMARY | 2024-11-19 02:27 | XMS_ITS | Clinical Summary ---
Author Organization [facility] Address [address] [place] [address] Care Team Providers Care Water Treatment Plant Engineer Name Role Phone Rusty Delgado MD Primary Care Provider [phone] Allergies No known active allergies Medications calcium carbonate-vitamin D3 500 mg-3.125 mcg (125 unit) tablet tablet 1 tablet. 06/02/19 24 Active multivitamin tablet Take 1 tablet by mouth in the morning. Active magnesium oxide (Mag-Ox) 400 mg tablet Take 500 mg by mouth in the morning. Active carvedilol (Coreg) 3.125 mg tabletIndications: Secondary esophageal varices without bleeding (CMS/HCC) Take 1 tablet (3.125 mg) by mouth with breakfast and with evening meal. 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 180 tablet 6 03/01/20 24 Active spironolactone (Aldactone) 50 mg tabletIndications: Alcoholic cirrhosis of liver with ascites (CMS/HCC) Take 3 tablets (150 mg) by mouth in the morning. 90 tablet 3 03/01/20 24 Active rifAXIMin (Xifaxan) 550 mg tabletIndications: Hepatic encephalopathy (CMS/HCC) Take 1 tablet (550 mg) by mouth two times daily. 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 TAKE 1 CAPSULE BEFORE A MEAL TWICE DAILY FOR 30 DAYS 60 capsule 08/21/19 25 Active Active Problems Problem Noted Date Diagnosed Date History of tobacco abuse 03/08/2024 Nonalcoholic steatohepatitis (JARAMILLO) 03/08/2024 Hepatic cirrhosis 03/08/2024 Pleural effusion 02/19/2024 Age-related nuclear cataract of both eyes 2023 Aortic root dilatation 12/21/2023 Overview (12/27/2023): Last Assessment & Plan: 3.8 cm ECHO 12/20/2023 Secondary esophageal varices without bleeding Other ascites 12/13/2023 QUESADA (dyspnea on exertion) 12/13/2023 Alcoholic cirrhosis of liver with ascites 2023 Cirrhosis 08/03/2023 08/03/2023 Dyspepsia and disorder of function of stomach 08/03/2023 Esophageal dysmotility 08/03/2023 Emesis 08/03/2023 08/03/2023 Abnormal weight loss 07/18/2023 08/03/2023 Episodic altered awareness 07/18/202308/02 Grade II hemorrhoids 06/22/2023 08/03/2023 Fissure in ano 05/18/2023 08/03/2023 Hx of colonic polyps 03/21/2023 08/03/2023 Myalgia 03/16/2023 08/03/2023 Controlled type 2 diabetes m ellitus without complication, without long-term current use of insulin 11/17/2022 08/03/2023 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 11/17/2022 08/03/2023 Dyslipidemia 11/17/2022 08/03/2023 Epiretinal membrane 11/17/2022 08/03/2023 Fatty liver 11/17/2022 08/03/2023 Insomnia 11/17/2022 08/03/2023 Metabolic syndrome X 11/17/2022 08/03/2023 Thrombocytopenia 11/17/2022 08/03/2023 Olecranon bursitis 11/06/2018 Vertigo 11/06/2018 Hyperglycemia due to type 2 diabetes mellitus Class 1 obesity 07/26/2018 Primary gout 07/26/2018 Ventricular premature beats 06/28/2017 Basal cell carcinoma of skin 06/27/2017 Essential hypertension 06/27/2017 Gastroesophageal reflux disease 06/27/2017 Incisional hernia 12/06/2012 08/03/2023 Tipton's esophagus 11/26/2012 08/03/2023 GERD (gastroesophageal reflux disease) 3 08/03/2023 HTN (hypertension) 11/26/2012 08/03/2023 Osteoporosis 11/26/2012 08/03/2023 Resolved Problems Problem Noted Date Diagnosed Date Resolved Date Benign essential hypertension 11/17/2022 08/03/2023 03/08/2024 Nuclear senile cataract 11/17/2022 08/03/202302/16 Encounters Date Type Department Care Team Description 08/20/2024 Refill [facility] [address] [place] [address] [place] [address] Arias Miles MD Tipton's esophagus without dysplasia from Last 3 Months Immunizations Immunization Administration Dates Next Due Influenza, High Dose Seasona l, Preservative Free 02/01/2022,02/17/2021 Influenza, Seasonal, Quadriv alent, Adjuvanted 01/24/2023 Influenza, Unspecified 01/23/2013 Influenza, injectable, quadrivalent 02/13/2017,1 Influenza, injectable, quadr ivalent, preservative free 02/10/2019 Influenza, seasonal, injectable 02/01/2016,02/10,01/14/2014 Tdap 03/22/2022 Zoster, Recombinant 04/30/2022 Zoster, live 03/24/2015 Social History Tobacco Use Types Packs/Day Years Used Date Smoking Tobacco: Former Cigarettes Q uit: 04/17/1994 Smokeless Tobacco: Never Tobacco Cessation:Counseling Given: Not Answered Alcohol Use Standard Drinks/Week Comments Not Currently 0 (1 standard drink = 0.6 oz pur e alcohol) LAST DRINK 09/2023 [facility] Utilities Answer Date Recorded In the [...] place to sleep or slept in a residential (including now)? No 02/19/2024 Hunger Vital Sign [...] Heterosexual or Straight 07/17 10:44 AM EDT Last Filed Vital Signs Vital Sign Reading Time Taken Comments Blood Pressure 130/91 03/08/2024 2:04 PM EST Pulse 68 03/08/2024 2:04 PM EST Temperature 36.6 C (97.9 F) 02/20/2024 2:51 PM EST Respiratory Rate 17 02/20/2024 2:51 PM EST Oxygen Saturation 98% 02/20/2024 2:51 PM EST Inhaled Oxygen Concentration - - Weight 84.4 kg (186 lb) 03/08/2024 2:04 PM EST Height 175.3 cm (5' 9 ) 03/08/2024 2:04 PM EST Body Mass Index 27.47 03/08/2024 2:04 PM EST Plan of Treatment Health Maintenance Due Date Last Done Comments CT Colonography 1955 FIT-DNA 1955 FIT 1955 FOBT 1955 Medicare Annual Wellness (AWV) 1955 Diabetes: Retinopathy Screening 08/03/1963 COVID-19 Vaccine (3 - Moderna risk series) 07/22/2020 06/24/2020, 05/27/2020 Zoster Vaccines (2 of 2) 06/25/2022 04/30/2022, 11/2014 Diabetes: Hemoglobin A1C 08/24/2023 05/26/2023, 0212/2022 Diabetes: Urine Protein Screening 05/26/2024 05/26/2023 Influenza Vaccine (#1) 2024 , 01/24/2023, 02/01/2022, Additional history exists Depression Screening 03/08/2025 03/08/2024 Fall Risk Screening 03/08/2025 03/08/2024 Sigmoidoscopy 09/02/2029 09/02/2024 Adult Tetanus 03/22/2032 03/22/2022 Colonoscopy 08/31/2034 08/31/2024, 08/08/2019 Colorectal Cancer Screening 08/31/2034 Pneumococcal Vaccine: 50+ Years Completed 03/04/2024 HIB Vaccines Aged Out No longer eligi ble based on patient's age to complete this topic HPV Vaccines Aged Out No longer eligi ble based on patient's age to complete this topic IPV Vaccines Aged Out No longer eligi ble based on patient's age to complete this topic Meningococcal B Vaccine Aged Out No l onger eligible based on patient's age to complete this topic Meningococcal Vaccine Aged Out No vanessa ivette eligible based on patient's age to complete this topic Rotavirus Vaccines Aged Out No longer eligible based on patient's age to complete this topic Insurance [employer] MEDICARE ADVANTAGE Advance Directives * Full Code (Latest Code Status on File) Date Activated Date Inactivated Comments 02/19/2024 4:34 PM 02/20/2024 6:27 PM Care Teams Water Treatment Plant Engineer Relationship Specialty Start Date End Date Rusty Delgado MD [address] [place] [facility] 110 [place] [address] PCP - General Internal Medicine 08/01/23
--- OUTSIDE RECORDS SUMMARY | 2024-11-19 02:27 | XMS_ITS | Encounter Summary ---
Author Organization [facility] Address [address] [place] [address] Care Team Providers Care Offset Platemaker Name Role Phone Rusty Delgado MD Unavailable [phone] Rusty Delgado MD Primary Care Provider [phone] Encounter Details Date Type Department Care Team (Late st Contact Info) Description 12/07/2023 Clinisync Result Encounter [facility] External Department Unsolicited Provider, Generic External Data Social History Tobacco Use Types Packs/Day Years Used Date Smoking Tobacco: Former Cigarettes Q uit: 1989 Smokeless Tobacco: Never Alcohol Use Standard Drinks/Week Comments Yes 0 (1 standard drink = 0.6 oz pure alcohol) 2-3 times per week, 1-2 drinks at a time Sex and Gender Information Value Date Recorded [...] [place] Whitten [address] [place] [address] [place] [phone] Rusty Delgado MD [address] [place] [address] [place], [place] [phone] documented as of this encounter Procedures Procedure Name Priority Date/Time Associated Diagnosis Comments US PARACENTESIS ABD W/IMAGE 12/07/2023 3:11 PM EDT documented in this encounter Results * US PARACENTESIS ABD W/IMAGE (12/07/2023 3:11 PM EDT) Anatomical Region Laterality Modality Other 12/07/2023 3:11 PM EDT Narrative 12/07/2023 3:13 [place] [address] Ultrasound Report Signed Patient: LOYD BLANDON MR#: [id number] : 1955 Acct:[id number] Age/Sex: 68 / M ADM Date: 12/07/23 Loc: US Attending Dr: Non-Staff Physician M.DAshley Ordering Physician: Physician,Non-Staff Eriberto Date of Service: 12/07/23 Procedure(s): US paracentesis abd w/image Accession Number(s): [id number] cc: RUSTY DELGADO ; Physician,Non-Staff MJulio Cesar [place] [address] Patient Name: LOYD BLANDON MRN: [id number] date: 1955 Sex: M Assigned Patient Location: ED.MAIN Current Patient Location: ED.MAIN Accession/Order Number: [id number] Exam Date: 12/07/2023 12:20 Report Date: 12/07/2023 15:11 At the request of: NON-STAFF PHYSICIAN Procedure: US paracentesis abd w/image EXAMINATION: US paracentesis abd w/image HISTORY: Alcoholic cirrhosis of liver with ascites COMPARISON: No relevant comparison available. DESCRIPTION: Informed consent was obtained. The patient was prepped and draped in standard sterile fashion. Ultrasound-guided paracentesis was performed in the usual sterile manner using 1% Xylocaine. FINDINGS: Ultrasound evaluation demonstrates a large amount of ascites within the abdomen and pelvis. Prior to beginning the procedure, the procedure was canceled due to patient's instability (bradycardia and hypotensive and shortness of breath). Patient was transported to the emergency department for evaluation. US/US paracentesis abd w/image IMPRESSION: 1. Marked abdominal ascites. 2. Procedure was terminated prior to beginning the procedure due to patient instability (see above). Electronically authenticated by: GALO STERN Date: 12/07/2023 15:11 Dictated By: Galo Stern M.D. Signed By: 12/07/23 1513 DD/ 151 TD/TT: Supervisor Twisting Department: Procedure Note Radiology, Radiologist, MD - 12/07/2023 [facility] [place] [address] Ultrasound Report Signed Patient: LOYD BLANDON EMR#: [id number] : 1955cct:[id number] Age/Sex: 68 / MADM Date: 12/07/23 Loc: US Attending Dr: Non-Staff Physician MJulio Cesar Ordering Physician: Physician,Non-Staff Eriberto Date of Service: 12/07/23 Procedure(s): US paracentesis abd w/image Accession Number(s): [id number] cc: RUSTY DELGADO ; Physician,Non-Staff Eriberto [place] [id number] Patient Name: LOYD BLANDON MRN: [id number] date: 1955 Sex: M Assigned Patient Location: ED.MAIN Current Patient Location: ED.MAIN Accession/Order Number: [id number] Exam Date: 12/07/2023 12:20 Report Date: 12/07/2023 15:11 At the request of: NON-STAFF PHYSICIAN Procedure: US paracentesis abd w/image EXAMINATION: US paracentesis abd w/image HISTORY: Alcoholic cirrhosis of liver with ascites COMPARISON: No relevant comparison available. DESCRIPTION: Informed consent was obtained. The patient was prepped anddraped in standard sterile fashion. Ultrasound-guided paracentesis was performedin the usual sterile manner using 1% Xylocaine. FINDINGS: Ultrasound evaluation demonstrates a large amount of ascites within the abdomen and pelvis. Prior to beginning the procedure, the procedure was canceled due topatient's instability (bradycardia and hypotensive and shortness of breath). Patientwas transported to the emergency department for evaluation. US/US paracentesis abd w/image IMPRESSION: 1. Marked abdominal ascites. 2. Procedure was terminated prior to beginning the procedure due topatient instability (see above). Electronically authenticated by: GALO STERN Date: 12/07/2023 15:11 Dictated By: Galo Stern M.D. Signed By:12/07/23 1513 DD/ 151 TD/TT: Supervisor Twisting Department: us Generic External Data Provider [facility] Final Result documented in this encounter Visit Diagnoses Not on filedocumented in this encounter Care Teams Offset Platemaker Relationship Specialty Start Date End Date Rusty Delgado MD [address] [facility] 110 [place] [address] PCP - [employer] 04/17/22 Rusty Delgado MD [address] [facility] [address] [place] [address] PCP - General Internal Medicine 11/23/22 documented as of this encounter
--- OUTSIDE RECORDS SUMMARY | 2024-11-19 02:27 | XMS_ITS | Encounter Summary ---
Author Organization [facility] Address [address] [place] [address] Care Team Providers Care Gifts Officer Name Role Phone Irena Johnson MD Unavailable Vanessa Arora MD Unavailable [phone] [place] WONG MD, Rusty Gomez Primary Care Provider [phone] Carina Ziegler RN Unavailable Unavailable Source Comments In the event this information is protected by the Federal Confidentiality of Alcohol and Drug AbusePatient Records regulations: The Federal rules restrict any use of the information to criminally investigate or prosecute any alcohol or drug abuse patient.[facility] Encounter Details Date Type Department Care Team (Late st Contact Info) Description 05/07/2024 Get Medical Advice Transplant Center [address] [address] Yesica Bright, LEO EGD Social History Tobacco Use Types Packs/Day Years [...] risk 7 04/25/2024 Data from: https://www.neighborhoodatlas.medicine.[facility]/. Last address used for calculation Eugene [...] PM EDT Office Visit Transplant Center [address] [address] KAYLIE ARELLANO 11/21/2024 5:40 PM EDT Appointment MRI Q 2049 [place] [address] Compression fracture of cervical spine, non-traumatic, with delayed healing, subsequent encounter [M48.52XG] 11/21/2024 6:20 PM EDT Appointment MRI Q [address] [address] Compression fracture of cervical spine, non-traumatic, with delayed healing, subsequent encounter [M48.52XG] 11/21/2024 7:00 PM EDT Appointment MRI Q [address] [address] Compression fracture of cervical spine, non-traumatic, with delayed healing, subsequent encounter [M48.52XG] 02/03/2025 9:00 AM EDT [facility] Neurology [address] [place] [address] Devyn Roach MD [address] [place] [address] Vertigo [R42] 02/10/2025 11:00 AM EDT Appointment Gastroenterology [address] [address] Jane Correia MD [address]00 [place] [address] Schedule in about 3 months to remove [...] documented as of this encounter Care Teams Gifts Officer Relationship Specialty Start Date End Date Rusty Delgado II, MD 112 [facility] 110 [place] [address] PCP - General Internal Medicine 05/28/24 Irena Johnson MD [address] [facility] [address] [place] [phone] Referring Gastroenterology 03/12/24 Vanessa Arora MD [address] [place] [address] Primary Staff Physician Cardiology 05/02/24 Carina Ziegler, RN [facility] [address] [place] [address] Registered Nurse Transplant Center 09/17/24 documented as of this encounter
--- OUTSIDE RECORDS SUMMARY | 2024-11-19 02:27 | XMS_ITS | Encounter Summary ---
Author Organization [facility] Address [address] [place] [address] Care Team Providers Care Network Support Technician Name Role Phone Irena Johnson MD Unavailable Vanessa Arora MD Unavailable [phone] [place] WONG MD, Rusty Gomez Primary Care Provider [phone] Carina Ziegler RN Unavailable Unavailable Source Comments In the event this information is protected by the Federal Confidentiality of Alcohol and Drug AbusePatient Records regulations: The Federal rules restrict any use of the information to criminally investigate or prosecute any alcohol or drug abuse patient.[facility] Encounter Details Date Type Department Care Team (Late st Contact Info) Description 05/01/2024 Patient Msg Transplant Center [address] [phone] Connie Garg MD [address] [place] [address] Imaging Social History Tobacco Use Types Packs/Day Years Used Date Smoking Tobacco: Former Cigarettes 1 20 1 04/20/1970 - 02/18/1991 Alcohol Use Standard Drinks/Week Comments Not Currently 10 (1 standard drink = 0.6 oz pu re alcohol) 1-2 drinks nightly Area Deprivation Index Answer Date Zac rded National Score (1-100), lower number is lower ri sk 80 04/25/2024 State Score (1-10), lower number is lower risk 7 04/25/2024 Data from: https://www.neighborhoodatlas.medicine.[facility]/. Last address used for calculation Eugene [...] PM EDT Office Visit Transplant Center 2048 [place] [address] KAYLIE ARELLANO 11/21/2024 5:40 PM EDT Appointment MRI Q [address] [address] Compression fracture of cervical spine, non-traumatic, with delayed healing, subsequent encounter [M48.52XG] 11/21/2024 6:20 PM EDT Appointment MRI Q [address] [address] Compression fracture of cervical spine, non-traumatic, with delayed healing, subsequent encounter [M48.52XG] 11/21/2024 7:00 PM EDT Appointment MRI Q [address] [address] Compression fracture of cervical spine, non-traumatic, with delayed healing, subsequent encounter [M48.52XG] 02/03/2025 9:00 AM EDT [facility] Neurology [address] [place] [address] Devyn Roach MD [address] [place] [id number] Vertigo [R42] 02/10/2025 11:00 AM EDT Appointment Gastroenterology [address] [address] Jane Correia MD [address]00 [place] [address] Schedule in about 3 months to remove [...] documented as of this encounter Care Teams Network Support Technician Relationship Specialty Start Date End Date Rusty Delgado II, MD 112 [facility] 110 [place] [address] PCP - General Internal Medicine 05/28/24 Irena Johnson MD [address] [place] [address] [facility] [place] [address] Referring Gastroenterology 03/12/24 Vanessa Arora MD [address] [place] [address] Primary Staff Physician Cardiology 05/02/24 Carina Ziegler, RN [facility] [address] [place] [address] Registered Nurse Transplant Center 09/17/24 documented as of this encounter
--- OUTSIDE RECORDS SUMMARY | 2024-11-19 02:27 | XMS_ITS | Encounter Summary ---
Author Organization [facility] Address [address] [place] [id number] Care Team Providers Care Geographic Information Systems Engineer Name Role Phone Tanisha Vazquez MD Primary Care Provider [phone] Irena Johnson MD Unavailable Vanessa Arora MD Unavailable [phone] Danny WONG MD, Rusty Gomez Primary Care Provider [phone] Carina Ziegler RN Unavailable Unavailable Source Comments In the event this information is protected by the Federal Confidentiality of Alcohol and Drug AbusePatient Records regulations: The Federal rules restrict any use of the information to criminally investigate or prosecute any alcohol or drug abuse patient.[facility] Encounter Details Date Type Department Care Team (Late st Contact Info) Description 03/01/2016 Patient Msg Family Medicine [address] [place] [address] [place] [address] [place] [address] Appointment Cancellation Request Social History Tobacco Use [...] EDT Office Visit Transplant Center [address] [address] KAYLIE ARELLANO 11/21/2024 5:40 PM EDT Appointment MRI Q [address] [address] Compression fracture of cervical spine, non-traumatic, with delayed healing, subsequent encounter [M48.52XG] 11/21/2024 6:20 PM EDT Appointment MRI Q [address] [address] Compression fracture of cervical spine, non-traumatic, with delayed healing, subsequent encounter [M48.52XG] 11/21/2024 7:00 PM EDT Appointment MRI Q [address] [address] Compression fracture of cervical spine, non-traumatic, with delayed healing, subsequent encounter [M48.52XG] 02/03/2025 9:00 AM EDT [facility] Neurology [address] [place] [address] Devyn Roach MD [address] [place] [address] Vertigo [R42] 02/10/2025 11:00 AM EDT Appointment Gastroenterology [address] [address] Jane Correia MD [address] [place] [address] Schedule in about 3 months to remove [...] documented as of this encounter Care Teams Geographic Information Systems Engineer Relationship Specialty Start [place] [address] [place] [address] PCP - General Family Medicine 11/26/12 04/04/17 Rusty Delgado II, MD [address] [facility] [address] [place] [address] PCP - General Internal Medicine 05/28/24 Irena Johnson MD [address] [place] [id number] Referring Gastroenterology 03/12/24 Vanessa Arora MD [address] [place] [address] Primary Staff Physician Cardiology 05/02/24 Carina Ziegler, RN [facility] [address] [facility] [place] [address] Registered Nurse Transplant Center 09/17/24 documented as of this encounter
--- OUTSIDE RECORDS SUMMARY | 2024-11-19 02:27 | XMS_ITS | Clinical Summary ---
Author Organization [facility] Healthcare Address [address] [place] [address] Care Team Providers Care A Auxiliary Name Role Phone Rusty Delgado MD Unavailable [phone] Rusty Delgado MD Primary Care Provider [phone] Allergies No known active allergies Medications Multiple Vitamins-Minerals (Multi For Him) tablet Daily. Active spironolactone (Aldactone) 100 MG tablet TAKE 1 TABLET BY MOUTH EVERY DAY FOR 30 DAYS 4 Active lansoprazole (Prevacid SoluTab) 30 MG disintegrating tablet Take 15 mg by mouth in the morning. Take before meals. Dissolve on tongue before swallowing particles; do not chew, cut, break, or swallow whole.. Active Calcium Carb-Cholecalcifer ol (Calcium 500 + D) 500-3.125 MG-MCG tablet Take 1 tablet by mouth 1 (one) time each day 4 Active magnesium oxide (Mag-Ox) 400 MG tablet Take 500 mg by mouth in the morning. Active rifAXIMin (Xifaxan) 550 MG tablet Take 550 mg by mouth in the morning and 550 mg in the evening. 4 Active carvedilol (Coreg) 3.125 MG tablet Take 3.125 mg by mouth in the morning and 3.125 mg in the evening. Take with meals. 4 Active lactulose (Enulose) 10 GM/15ML solution oral solution Take 10 g by mouth Daily 4 Active torsemide (Demadex) 20 MG tablet Take 20 mg by mouth Daily Active spironolactone (Aldactone) 50 MG tablet Take 50 mg by mouth Daily Active bumetanide (Bumex) 2 MG tablet Take 2 mg by mouth in the morning and 2 mg before bedtime. Active B Complex Vitamins (vitamin B complex) tabletIndications: Iron deficiency anemia, unspecified iron deficiency anemia type Take 1 tablet by mouth Daily 100 tablet 3 Active Active Problems Problem Noted Date Diagnosed Date History of tobacco abuse 03/08/2024 Nonalcoholic steatohepatitis (JARAMILLO) 03/08/2024 Pleural effusion 02/19/2024 Age-related nuclear cataract of both eyes 2023 Aortic root dilatation 12/21/2023 Assessment & Plan (12/21/2023 9:15 AM EDT): 3.8 cm ECHO 12/20/2023 QUESADA (dyspnea on exertion) 12/13/2023 Other ascites 12/13/2023 Secondary esophageal varices without bleeding Alcoholic cirrhosis of liver with ascites 2023 Cirrhosis 08/03/2023 Emesis 08/03/2023 Abnormal weight loss 07/18/2023 Episodic altered awareness 07/18/2023 Grade II hemorrhoids 06/22/2023 Fissure in ano 05/18/2023 Hx of colonic polyps 03/21/2023 Myalgia 03/16/2023 Tipton's esophagus 11/17/2022 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 11/17/2022 Dyslipidemia 11/17/2022 Epiretinal membrane 11/17/2022 Fatty liver 11/17/2022 Insomnia 11/17/2022 Metabolic syndrome X 11/17/2022 Nuclear senile cataract 11/17/2022 Thrombocytopenia 11/17/2022 Olecranon bursitis 11/06/2018 Vertigo 11/06/2018 Hyperglycemia due to type 2 diabetes mellitus Class 1 obesity 07/26/2018 Primary gout 07/26/2018 Ventricular premature beats 06/28/2017 Basal cell carcinoma of skin 06/27/2017 Incisional hernia 12/06/2012 GERD (gastroesophageal reflux disease) 3 Osteoporosis 11/26/2012 Resolved Problems Problem Noted Date Diagnosed Date Resolved Date Benign essential hypertension 11/17/2022 11/15/2023 Controlled type 2 diabetes m ellitus without complication, without long-term current use of insulin 11/17/2022 11/15/2023 HTN (hypertension) 11/26/2012 3 Encounters Date Type Department Care Team Description 11/18/2024 Abstract NOMS [place] [facility] [address] [facility] [address] [place] [phone] Rusty Delgado MD 11/15/2024 Clinisync Result Encounter NOMS External Department Unsolicited Provider, Generic External Data 11/14/2024 Telephone [facility] [address] [facility] [address] [place] [phone] Rusty Delgado MD 11/14/2024 Clinisync Result Encounter NOMS External Department Unsolicited Provider, Generic External Data 11/13/2024 Clinisync Result Encounter NOMS External Department Unsolicited Provider, Generic External Data 11/11/2024 Clinisync Result Encounter NOMS External Department Unsolicited Provider, Generic External Data 11/08/2024 Clinisync Result Encounter NOMS External Department Unsolicited Provider, Generic External Data 11/07/2024 Clinisync Result Encounter NOMS External Department Unsolicited Provider, Generic External Data 11/04/2024 Clinisync Result Encounter NOMS External Department Unsolicited Provider, Generic External Data 11/02/2024 Clinisync Result Encounter NOMS External Department Unsolicited Provider, Generic External Data 11/01/2024 Clinisync Result Encounter NOMS External Department Unsolicited Provider, Generic External Data 10/31/2024 Clinisync Result Encounter NOMS External Department Unsolicited Provider, Generic External Data 10/30/2024 Clinisync Result Encounter NOMS External Department Unsolicited Provider, Generic External Data 10/17/2024 Clinisync Result Encounter NOMS External Department Unsolicited Provider, Generic External Data 10/14/2024 Clinisync Result Encounter NOMS External Department Unsolicited Provider, Generic External Data 10/12/2024 Clinisync Result Encounter NOMS External Department Unsolicited Provider, Generic External Data 10/08/2024 Clinisync Result Encounter NOMS External Department Unsolicited Provider, Generic External Data 10/07/2024 Clinisync Result Encounter NOMS External Department Unsolicited Provider, Generic External Data 10/07/2024 Clinisync Result Encounter NOMS External Department Unsolicited Provider, Generic External Data 10/07/2024 Clinisync Result Encounter NOMS External Department Unsolicited Provider, Generic External Data 10/05/2024 Clinisync Result Encounter NOMS External Department Unsolicited Provider, Generic External Data 10/04/2024 Clinisync Result Encounter NOMS External Department Unsolicited Provider, Generic External Data 10/03/2024 Clinisync Result Encounter NOMS External Department Unsolicited Provider, Generic External Data 10/02/2024 Clinisync Result Encounter NOMS External Department Unsolicited Provider, Generic External Data 10/01/2024 Clinisync Result Encounter NOMS External Department Unsolicited Provider, Generic External Data 09/30/2024 Clinisync Result Encounter NOMS External Department Unsolicited Provider, Generic External Data 09/29/2024 Clinisync Result Encounter NOMS External Department Unsolicited Provider, Generic External Data 09/29/2024 Clinisync Result Encounter NOMS External Department Unsolicited Provider, Generic External Data 09/24/2024 Clinisync Result Encounter NOMS External Department Unsolicited Provider, Generic External Data 09/09/2024 Clinisync Result Encounter NOMS External Department Unsolicited Provider, Generic External Data 09/08/2024 Clinisync Result Encounter NOMS External Department Unsolicited Provider, Generic External Data 09/08/2024 Clinisync Result Encounter NOMS External Department Unsolicited Provider, Generic External Data 09/06/2024 Clinisync Result Encounter NOMS External Department Unsolicited Provider, Generic External Data 09/03/2024 Abstract NOMS [facility] [address] [facility] [address] [place] [address] Rusty Delgado MD 09/02/2024 Clinisync Result Encounter NOMS External Department Unsolicited Provider, Generic External Data 09/01/2024 Clinisync Result Encounter NOMS External Department Unsolicited Provider, Generic External Data 08/31/2024 Clinisync Result Encounter NOMS External Department Unsolicited Provider, Generic External Data 08/27/2024 Clinisync Result Encounter NOMS External Department Unsolicited Provider, Generic External Data 08/23/2024 Clinisync Result Encounter NOMS External Department Unsolicited Provider, Generic External Data 08/21/2024 Refill NOMS [place] [facility]ard [facility] [address] [facility] [address] [place] [phone] Rusty Delgado MD Iron deficiency anemia, unspecified iron deficiency anemia type 08/20/2024 Telephone NOMS Danny [facility] [address] [facility] [address] [place] [phone] Xuan Espino PA 08/19/2024 11:00 AM EDT Office Visit NOMS Danny [facility] [address] [facility] [address] [place] [phone] Xuan Espino PA Other acute postprocedural pain (Primary Dx); Type 2 diabetes mellitus with hyperglycemia, without long-term current use of insulin (HCC) 08/19/2024 Bamboo flowsheet NOMS Danny [facility] [address] [facility] [address] [place] [phone] Xuan Espino PA 08/19/2024 Travel from Last 3 Months Immunizations Immunization Administration Dates Next Due Hep A, Adult 05/02/2024 HepB-CpG 06/15/2024,05/02/2024 Influenza, High Dose Seasona l, Preservative Free 03/04/2024,02/01/2022,02/17/2021 Influenza, Seasonal, Quadriv alent, Adjuvanted 01/24/2023 Influenza, Unspecified 01/23/2013 Influenza, injectable, quadrivalent 02/13/2017 Influenza, injectable, quadr ivalent, preservative free 02/10/2019 Influenza, seasonal, injectable 02/01/2016,02/10,01/14/2014 Pneumococcal Conjugate PCV 20 03/04/2024 RSV, recombinant, protein galindo bunit RSVpreF, adjuvant reconstitu, 120mcg/0.5mL, PF (Arexvy) 06/10/2024 Tdap 03/22/2022 Zoster, Recombinant 04/30/2022 Zoster, live 03/24/2015 Family History Medical History Relation Name Comments Hypertension Father Loyd Blandon Breast cancer Neg Hx Colon cancer Neg Hx Ovarian cancer Neg Hx Relation Name Status Comments Brother 3 Father Loyd Blandon Mother Sister 1 Social History Tobacco Use Types Packs/Day Years Used Date Smoking Tobacco: Former Cigarettes Q uit: 1989 Smokeless Tobacco: Never Tobacco Cessation:Counseling Given: Not Answered Alcohol Use Standard Drinks/Week Comments Yes 0 [...] Never 12/12/2023 How often do you attend hinduism or muslim serv ices? Never 12/12/2023 Do you belong to any clubs o r organizations such as hinduism groups, unions, fraternal or athletic groups, or [...] Recorded Patient Health Questionnaire-2 Score 0 08/19/2024 [facility] - Occupational [...] any time in the past 12 m [facility], were you homeless or living in a half-way (including now)? No 12/12/2023 Sex and Gender Information Value Date Recorded Sex Assigned at Male 12/12/2023 1:36 PM EDT Legal Sex Male 11:50 PM EDT Gender Identity Male 12/12/2023 1:36 PM EDT Sexual Orientation Asexual 12/12/2023 1: 36 PM EDT Last Filed Vital Signs Vital Sign Reading Time Taken Comments Blood Pressure 100/76 08/19/2024 11:11 AM EDT Pulse 82 08/19/2024 11:11 AM EDT Temperature 36.1 C (97 F) 08/19/2024 11:11 AM EDT Respiratory Rate 16 08/19/2024 11:11 AM EDT Oxygen Saturation 98% 08/19/2024 11:11 AM EDT Inhaled Oxygen Concentration - - Weight 87.5 kg (193 lb) 08/19/2024 11:11 AM EDT Height 175.3 cm (5' 9 ) 08/19/2024 11:11 AM EDT Body Mass Index 28.5 08/19/2024 11:11 AM EDT Plan of Treatment Upcoming Encounters Date Type Department Care Team (Late st Contact Info) Description 11/20/2024 11:00 AM EDT Office Visit NOMS [facility] Family [facility] [address] [facility] [address] [place] [address] Rusty Delgado MD 112 [facility] [address] [place] [address] Health Maintenance Due Date Last Done Comments CT Colonography 1953 FIT-DNA 1955 FIT 1955 FOBT 1955 Diabetes: Urine Protein Screening 05/26/2024 024 Diabetes: Hemoglobin A1C 07/28/2024 025, 11/15/2023, 05/26/2023, Additional history exists Influenza Vaccine (#1) 2024 4, 01/24/2023, 02/01/2022, Additional history exists Diabetes: Retinopathy Screening 01/17/2026 01/18/2024, 01/18/2024, 01/18/2024, Additional history exists Sigmoidoscopy 09/02/2029 09/02/2024 Colonoscopy 08/31/2034 08/31/2024, 08/15, 08/08/2019 Colorectal Cancer Screening 08/31/2034 Pneumococcal Vaccine: 65+ Years Completed 4, 03/04/2024 Procedures Procedure Name Priority Date/Time Associated Diagnosis Comments [facility] PATH INTERP CBCDIF (LAB REFLEX ORDER-NO BILL) Routine 11/15/2024 5:30 AM EDT [facility] CBC W AUTO DIFF BLD Routine 11/15/2024 5:30 AM EDT CCF PHOSPHATE SERPL-MCNC Routine 11/15/2024 5:30 AM EDT CCF MAGNESIUM SERPL-MCNC Routine 11/15/2024 5:30 AM EDT CCF COMP METAB 2000 PNL SERPL Routine 11/15/2024 5:30 AM EDT CCF GGT SERPL-CCNC Routine 11/14/2024 3: 30 AM EDT CCF TACROLIMUS BLD-MCNC Routine 11/14/2024 3:30 AM EDT CCF CBC W AUTO DIFF BLD Routine 11/14/2024 3:30 AM EDT CCF MAGNESIUM SERPL-MCNC Routine 11/14/2024 3:30 AM EDT CCF CRP SERPL-MCNC Routine 11/14/2024 3: 30 AM EDT CCF COMP METAB 2000 PNL SERPL Routine 11/14/2024 3:30 AM EDT CCF NT-PROBNP SERPL-MCNC Routine 11/14/2024 3:30 AM EDT CCF PHOSPHATE SERPL-MCNC Routine 11/14/2024 3:30 AM EDT ERCP 11/13/2024 1:11 PM EDT CCF CMV DNA DETECTION AND QUANT Routine 11/11/2024 5:06 AM EDT CCF TACROLIMUS BLD-MCNC Routine 11/11/2024 5:06 AM EDT CCF GGT SERPL-CCNC Routine 11/11/2024 5: 06 AM EDT CCF CBC W AUTO DIFF BLD Routine 11/11/2024 5:06 AM EDT [facility] MAGNESIUM SERPL-MCNC Routine 11/11/2024 5:06 AM EDT CCF CRP SERPL-MCNC Routine 11/11/2024 5: 06 AM EDT CCF COMP METAB 2000 PNL SERPL Routine 11/11/2024 5:06 AM EDT CCF PHOSPHATE SERPL-MCNC Routine 11/11/2024 5:06 AM EDT CCF NT-PROBNP SERPL-MCNC Routine 11/11/2024 5:06 AM EDT CCF PHOSPHATE SERPL-MCNC Routine 11/08/2024 5:21 AM EDT CCF MAGNESIUM SERPL-MCNC Routine 11/08/2024 5:21 AM EDT CCF BAS METAB 2000 PNL SERPL Routine 11/08/2024 5:21 AM EDT CCF ALBUMIN SERPL-MCNC Routine 11/08/2024 5:21 AM EDT CCF GGT SERPL-CCNC Routine 11/07/2024 10 :56 AM EDT CCF TACROLIMUS BLD-MCNC Routine 11/07/2024 10:56 AM EDT CCF MAGNESIUM SERPL-MCNC Routine 11/07/2024 10:56 AM EDT CCF CRP SERPL-MCNC Routine 11/07/2024 10 :56 AM EDT CCF COMP METAB 2000 PNL SERPL Routine 11/07/2024 10:56 AM EDT CCF CBC W AUTO DIFF BLD Routine 11/07/2024 10:56 AM EDT CCF NT-PROBNP SERPL-MCNC Routine 11/07/2024 10:56 AM EDT CCF PHOSPHATE SERPL-MCNC Routine 11/07/2024 10:56 AM EDT CCF CMV DNA DETECTION AND QUANT Routine 11/04/2024 5:10 AM EDT CCF TACROLIMUS BLD-MCNC Routine 11/04/2024 5:10 AM EDT CCF GGT SERPL-CCNC Routine 11/04/2024 5: 10 AM EDT CCF COMP METAB 2000 PNL SERPL Routine 11/04/2024 5:10 AM EDT CCF MAGNESIUM SERPL-MCNC Routine 11/04/2024 5:10 AM EDT CCF CRP SERPL-MCNC Routine 11/04/2024 5: 10 AM EDT CCF CK SERPL-CCNC Routine 11/04/2024 5:1 0 AM EDT CCF PHOSPHATE SERPL-MCNC Routine 11/04/2024 5:10 AM EDT CCF CBC W AUTO DIFF BLD Routine 11/04/2024 5:10 AM EDT CCF NT-PROBNP SERPL-MCNC Routine 11/04/2024 5:10 AM EDT CCF CBC W AUTO DIFF BLD Routine 11/02/2024 6:40 AM EDT CCF RENAL FUNC 2000 PNL SERPL Routine 11/02/2024 6:40 AM EDT CCF MAGNESIUM SERPL-MCNC Routine 11/02/2024 6:40 AM EDT CCF FERRITIN SERPL-MCNC Routine 11/01/2024 5:01 AM EDT CCF FOLATE SERPL-MCNC Routine 11/01/2024 5:01 AM EDT CCF VIT B12 SERPL-MCNC Routine 11/01/2024 5:01 AM EDT CCF IRON+TIBC PNL SERPL Routine 11/01/2024 5:01 AM EDT CCF CBC W AUTO DIFF BLD Routine 11/01/2024 5:01 AM EDT CCF RENAL FUNC 2000 PNL SERPL Routine 11/01/2024 5:01 AM EDT CCF NT-PROBNP SERPL-MCNC Routine 11/01/2024 5:01 AM EDT CCF MAGNESIUM SERPL-MCNC Routine 11/01/2024 5:01 AM EDT CCF TACROLIMUS BLD-MCNC Routine 10/31/2024 4:52 AM EDT CCF GGT SERPL-CCNC Routine 10/31/2024 4: 52 AM EDT CCF MAGNESIUM SERPL-MCNC Routine 10/31/2024 4:52 AM EDT CCF CRP SERPL-MCNC Routine 10/31/2024 4: 52 AM EDT CCF COMP METAB 2000 PNL SERPL Routine 10/31/2024 4:52 AM EDT CCF NT-PROBNP SERPL-MCNC Routine 10/31/2024 4:52 AM EDT CCF CBC W AUTO DIFF BLD Routine 10/31/2024 4:52 AM EDT CCF PHOSPHATE SERPL-MCNC Routine 10/31/2024 4:52 AM EDT CCF BACTERIA FLD CULT Routine 10/30/2024 1:44 PM EDT CCF BACTERIA SPEC ANAEROBE CULT Routine 10/30/2024 1:44 PM EDT [facility] BACTERIA SPEC ANAEROBE CULT Routine 10/17/2024 4:51 PM EDT CCF BACTERIA WND CULT Routine 10/17/2024 4:51 PM EDT ECHO 10/17/2024 11:11 AM EDT [facility]CF BACTERIA SPEC ANAEROBE CULT Routine 10/14/2024 3:31 PM EDT CCF BACTERIA FLD CULT Routine 10/14/2024 3:31 PM EDT CCF CYTOLOGY NON-CIRCULAR KNIFE CUTTER MACHINE Routine 10/14/2024 3:31 PM EDT CCF O+P SPEC MICRO Routine 10/12/2024 8: 10 PM EDT CCF RESP PATH 12B PNL SPEC JESSICA+PROBE Routine 10/08/2024 11:[address] ABD/PEL WO IVCON 10/07/2024 3 :[address] BRAIN WO IVCON 10/07/2024 3:0 0 PM EDT CCF CMV DNA DETECTION AND QUANT Routine 10/07/2024 5:24 AM EDT CCF GGT SERPL-CCNC Routine 10/07/2024 5: 24 AM EDT CCF TACROLIMUS BLD-MCNC Routine 10/07/2024 5:24 AM EDT CCF MAGNESIUM SERPL-MCNC Routine 10/07/2024 5:24 AM EDT CCF CRP SERPL-MCNC Routine 10/07/2024 5: 24 AM EDT CCF COMP METAB 2000 PNL SERPL Routine 10/07/2024 5:24 AM EDT CCF NT-PROBNP SERPL-MCNC Routine 10/07/2024 5:24 AM EDT CCF CBC W AUTO DIFF BLD Routine 10/07/2024 5:24 AM EDT CCF CBC W AUTO DIFF BLD Routine 10/05/2024 6:04 AM EDT CCF LACTATE BLD-SCNC Routine 10/04/2024 6:32 AM EDT CCF RENAL FUNC 2000 PNL SERPL Routine 10/04/2024 6:32 AM EDT CCF MAGNESIUM SERPL-MCNC Routine 10/04/2024 6:32 AM EDT CCF KETONES/ACETONE/BHB Routine 10/04/2024 6:32 AM EDT CCF CBC W AUTO DIFF BLD Routine 10/04/2024 6:32 AM EDT CCF TACROLIMUS BLD-MCNC Routine 10/03/2024 5:35 AM EDT CCF GGT SERPL-CCNC Routine 10/03/2024 5: 35 AM EDT CCF MAGNESIUM SERPL-MCNC Routine 10/03/2024 5:35 AM EDT CCF COMP METAB 2000 PNL SERPL Routine 10/03/2024 5:35 AM EDT CCF CRP SERPL-MCNC Routine 10/03/2024 5: 35 AM EDT CCF NT-PROBNP SERPL-MCNC Routine 10/03/2024 5:35 AM EDT CCF CBC W AUTO DIFF BLD Routine 10/03/2024 5:35 AM EDT CCF TACROLIMUS BLD-MCNC Routine 10/02/2024 4:12 AM EDT CCF FERRITIN SERPL-MCNC Routine 10/02/2024 4:12 AM EDT CCF FOLATE SERPL-MCNC Routine 10/02/2024 4:12 AM EDT CCF VIT B12 SERPL-MCNC Routine 10/02/2024 4:12 AM EDT CCF IRON+TIBC PNL SERPL Routine 10/02/2024 4:12 AM EDT CCF CBC PNL BLD AUTO Routine 10/02/2024 4:12 AM EDT CCF MAGNESIUM SERPL-MCNC Routine 10/01/2024 4:45 AM EDT CCF CRP SERPL-MCNC Routine 10/01/2024 4: 45 AM EDT CCF CBC W AUTO DIFF BLD Routine 10/01/2024 4:45 AM EDT CCF CMV DNA DETECTION AND QUANT Routine 09/30/2024 7:00 AM EDT CCF TACROLIMUS BLD-MCNC Routine 09/30/2024 7:00 AM EDT CCF GGT SERPL-CCNC Routine 09/30/2024 7: 00 AM EDT CCF MAGNESIUM SERPL-MCNC Routine 09/30/2024 7:00 AM EDT CCF COMP METAB 2000 PNL SERPL Routine 09/30/2024 7:00 AM EDT CCF CRP SERPL-MCNC Routine 09/30/2024 7: 00 AM EDT CCF NT-PROBNP SERPL-MCNC Routine 09/30/2024 7:00 AM EDT CCF CBC W AUTO DIFF BLD Routine 09/30/2024 7:00 AM EDT ECG01 09/29/2024 5:07 PM EDT ECG 12-LEAD 09/29/2024 5:07 PM EDT CCF BACTERIA WND CULT Routine 09/24/2024 1:34 PM EDT TISS PATH BX REPORT Routine 09/09/2024 1 0:57 AM EDT CCF MICROORGANISM SPEC CULT Routine 09/09/2024 10:42 AM EDT CCF BACTERIA SPEC ANAEROBE CULT Routine 09/09/2024 10:42 AM EDT CCF BACTERIA FLD CULT Routine 09/09/2024 10:42 AM EDT CCF FLUABV+SARS-COV-2+RSV PNL RESP JESSICA+PROBE Routine 09/08/2024 4:50 PM EDT ECG 12-LEAD 09/08/2024 3:14 PM EDT CCF BACTERIA FLD CULT Routine 09/06/2024 11:53 AM EDT CCF CYTOLOGY NON-CIRCULAR KNIFE CUTTER MACHINE Routine 09/06/2024 11:53 AM EDT CCF BACTERIA SPEC ANAEROBE CULT Routine 09/06/2024 11:53 AM EDT TISS PATH BX REPORT Routine 09/02/2024 1 1:43 AM EDT ECG 12-LEAD 09/01/2024 2:30 PM EDT TISS PATH BX REPORT Routine 08/31/2024 9 :11 AM EDT ECG 12-LEAD 08/27/2024 7:31 AM EDT CCF BACTERIA BLD CULT Routine 08/23/2024 6:30 PM EDT CCF BACTERIA BLD CULT Routine 08/23/2024 6:29 PM EDT CCF BACTERIA FLD CULT Routine 08/23/2024 5:51 PM EDT CBC (INCLUDES DIFF/PLT) Routine 08/19/2024 11:32 AM EDT Other acute postprocedural pain POCT GLYCATED HEMOGLOBIN, TOTAL Routine 11/15/2023 11:40 AM EDT Metabolic syndrome X MICROALBUMIN / CREATININE URINE RATIO Routine 05/26/2023 8:31 AM EST Screening for prostate cancer Benign essential hypertension Thrombocytopenia Fatty liver Dyslipidemia COLOR FUNDUS PHOTOGRAPHY - OU - BOTH EYES Routine 05/24/2022 12:00 PM EST COLONOSCOPY Routine 08/08/2019 12:00 PM EDT from Last 3 Months or Most Recently Relevant to Health Maintenance Results * [facility] PHOSPHATE SERPL-MCNC (11/15/2024 5:30 AM EDT) Only the most recent of7 resultswithin the time period is included. [facility] PHOSPHATE SERPL-MCNC 4.7 2.7 - 4.8 mg/dL CCF 11/15/2024 5:30 AM EDT 11/15/2024 9:05 AM EDT Narrative CLINISYMS - 11/15/2024 10:09 AM EDT Specimen Type: BLOOD SPECIMEN Ordering Facility: [facility] Address: [address] [place] [address] Original Ordering Provider: CAMILA PALMER Generic External Data Provider CLINISYNC F inal Result Performing Organization Address [facility] de Phone Number CLINVAMSINC [facility] [address] [place] [address] * CCF PATH INTERP CBCDIF (LAB REFLEX ORDER-NO BILL) (11/15/2024 5:30 AM EDT) [facility] CCF STAFF REVIEW, CBCDIF CCF Comment: Normocytic anemia with slight polychromasia Leukopenia with absolute lymphopenia Thrombocytosis [facility]CF INTERNET SYSTEMS ADMINISTRATOR REVIEW Reviewed by Leona Mak MD [facility]CF 11/15/2024 5:30 AM EDT 11/15/2024 1:31 PM EDT Narrative [facility] - 11/15/2024 7:18 PM EDT Specimen Type: BLOOD SPECIMEN Ordering Facility: [facility] Address: [address] [place] [address] Original Ordering Provider: CAMILA PALMER Generic External Data Provider CLINISYNC F inal Result Performing Organization Address [facility] de Phone Number [facility] [address] [address] * (ABNORMAL) CCF CBC W AUTO DIFF BLD (11/15/2024 5:30 AM EDT) Only the most recent of14 resultswithin the time period is included. [facility] CCF WBC # BLD AUTO 2.45(L) 3.70 [...] Type: BLOOD SPECIMEN Ordering Facility: [facility] Address: [address] [place] [address] Original Ordering Provider: CAMILA PALMER Generic External Data Provider REIDISYGARRICK E dited Result - Final Performing Organization Address [facility] de [place] [address] [place] [phone] [facility] [address] [place] [phone] * [facility] MAGNESIUM SERPL-MCNC (11/15/2024 5:30 AM EDT) Only the most recent of14 resultswithin the time period is included. [facility] MAGNESIUM SERPL-MCNC 2.1 1.7 - 2.3 mg/dL CCF 11/15/2024 5:30 AM EDT 11/15/2024 9:05 AM EDT Narrative CLINISYNC - 11/15/2024 10:09 AM EDT Specimen Type: BLOOD SPECIMEN Ordering Facility: [facility] Address: [address] [place] [address] Original Ordering Provider: CAMILA PALMER Generic External Data Provider MALLORY F inal Result Performing Organization Address [facility] de Phone Number [place] [address] [place] [address] * (ABNORMAL) CCF COMP METAB 2000 PNL SERPL (11/15/2024 5:30 AM EDT) Only the most recent of9 resultswithin the time period is included. [facility] PROT SERPL-MCNC 5.5(L) 6.3 - 8.0 [...] 74 - 99 mg/dL CCF Comment: The [place] [employer] Association (ADA) provides guidance for cutoff [...] Standards of Medical Care in Diabetes 2016, [place] [employer] Association. Diabetes Care. 2016.39(Suppl 1). CCF [...] Type: BLOOD SPECIMEN Ordering Facility: [facility] Address: [address] [place] [address] Original Ordering Provider: SUZE JENKINS Generic External Data Provider CLINISYNC F inal Result Performing Organization Address [facility] Co de Phone Number CLINISYNC [facility] [address] [place] [phone] * CCF TACROLIMUS BLD-MCNC (11/14/2024 3:30 AM EDT) Only the most recent of9 resultswithin the time period is included. [facility] TACROLIMUS BLD-MCNC 10.2 5.0 - 20.0 [...] situation. Test performed by chemiluminescent immunoassay using [employer] i. 11/14/2024 3:30 AM EDT 11/14/2024 2:16 PM EDT Narrative CLINISYNC - 11/14/2024 5:31 PM EDT Specimen Type: BLOOD SPECIMEN Ordering Facility: [facility] Address: [address] [place] [address] Original Ordering Provider: DAVID BLACKBURN Generic External Data Provider CLINISYNC F inal Result Performing Organization Address City/[facility] Co de Phone Number CLINISYNC [facility] [address] [address] * (ABNORMAL) CCF NT-PROBNP SERPL-MCNC (11/14/2024 3:30 AM EDT) Only the most recent of9 resultswithin the time period is included. [facility] NT-PROBNP SERPL-MCNC 543(H) <125 pg/mL [facility] 11/14/2024 3:30 AM EDT 11/14/2024 9:09 AM EDT Narrative CLINISYNC - 11/14/2024 11:01 AM EDT Specimen Type: BLOOD SPECIMEN Ordering Facility: [facility] Address: [address] [place] [address] Original Ordering Provider: DAVID BLACKBURN Generic External Data Provider CLINISYNC F inal Result Performing Organization Address [facility] de Phone Number CLINISYNC CC [address] [place] [address] * [facility]CF GGT SERPL-CCNC (11/14/2024 3:30 AM EDT) Only the most recent of8 resultswithin the time period is included. [facility] GGT SERPL-CCNC 70 10 - 70 U/L [facility]CF 11/14/2024 3:30 AM EDT 11/14/2024 1:11 PM EDT Narrative CLINISYNC - 11/14/2024 5:57 PM EDT Specimen Type: BLOOD SPECIMEN Ordering Facility: [facility] Address: [address] [place] [address] Original Ordering Provider: DAVID BLACKBURN Generic External Data Provider CLINISYNC F inal Result Performing Organization Address [facility] Co de Phone Number CLINISYNC CCF [address] [address] * (ABNORMAL) CCF CRP SERPL-MCNC (11/14/2024 3:30 AM EDT) Only the most recent of9 resultswithin the time period is included. [facility]CF CRP SERPL-MCNC 20.7(H) <0.9 mg/dL C[facility] 11/14/2024 3:30 AM EDT 11/14/2024 9:09 AM EDT Narrative MALLORY - 11/14/2024 11:32 AM EDT Specimen Type: BLOOD SPECIMEN Ordering Facility: [facility] Address: [address] [place] [address] Original Ordering Provider: DAVID BLACKBURN us Generic External Data Provider CLINVAMSINC F inal Result Performing Organization Address City/State/[facility] Co de Phone Number MALLORY CCF [address] [place] [address] * ERCP (11/13/2024 1:11 PM EDT) Anatomical Region Laterality Modality Other 11/13/2024 1:11 PM EDT Narrative 11/13/2024 3:25 PM EDT Q3 Patient Name: Loyd Blandon Procedure Date: 11/13/2024 1:11 PM Date of : 1955 Admit Type: Outpatient Age: 69 Gender: Male Note Status: Finalized Attending MD: Jane Correia MD, [id number] Procedure: ERCP Indications: Common bile duct stone(s), 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 Findings: A cake froster film of the abdomen was obtained. Surgical [...] none. Recommendation: - Discharge patient to a skilled nursing. - Resume previous diet. - Cipro (ciprofloxacin) 500 mg PO BID for 5 days. - Repeat ERCP for stent removal n 3 months. Procedure Code(s): --- Professional --- 47892, Endoscopic retrograde cholangiopancreatography (ERCP); with removal of calculi/debris from biliary/pancreatic duct(s) 31922, Endoscopic catheterization of the biliary ductal system, radiological supervision and interpretation Diagnosis Code(s): --- Professional --- Z96.89, Presence of other specified functional implants K80.51, Calculus of bile duct without cholangitis or cholecystitis with obstruction Z09, Encounter for follow-up examination after completed treatment for conditions other than malignant neoplasm Z94.4, Liver transplant status CPT copyright 2020 [place] [employer]. All rights reserved. Attending Participation: I was present and participated during the entire procedure, including non-david portions. Scope In: 2:57:12 PM Scope Out: 3:17:12 PM MD Jane Alexander MD 11/13/2024 3:25:50 PM This report has been signed electronically by Jane Correia MD Number of Addenda: 0 Note Initiated On: 11/13/2024 1:11 PM Procedure Note Radiology, Radiologist, - 11/13/2024 Q3 Patient Name: Loyd Blandon Procedure Date: 11/13/2024 1:11 PM Date of : 1955 Admit Type: Outpatient Age: 69 Gender: Male Note Status: Finalized Attending MD: Jane Correia MD, [id number] Procedure: ERCP Indications: Common bile duct stone(s), [...] administered by the anesthesia team. Findings: A cake froster film of the abdomen was obtained. Surgical [...] none. Recommendation: - Discharge patient to a skilled nursing. - Resume previous diet. - Cipro (ciprofloxacin) 500 mg PO BID for 5 days. - Repeat ERCP for stent removal n 3 months. Procedure Code(s): --- Professional --- 50469, Endoscopic retrograde cholangiopancreatography (ERCP); with removal of calculi/debris from biliary/pancreatic duct(s) 01388, Endoscopic catheterization of the biliary ductal system, radiological supervision and interpretation Diagnosis Code(s): --- Professional --- Z96.89, Presence of other specified functional implants K80.51, Calculus of bile duct without cholangitis or cholecystitis with obstruction Z09, Encounter for follow-up examination after completed treatment for conditions other than malignant neoplasm Z94.4, Liver transplant status CPT copyright 2020 [place] [employer]. All rights reserved. Attending Participation: I was present and participated during the entire procedure, including non-david portions. Scope In: 2:57:12 PM Scope Out: 3:17:12 PM MD Jane Alexander MD 11/13/2024 3:25:50 PM This report has been signed electronically by Jane Correia MD Number of Addenda: 0 Note Initiated On: 11/13/2024 1:11 PM Generic External Data Provider CLINISYMS IMAGING Final Result * [facility] CMV DNA DETECTION AND QUANT (11/11/2024 5:06 AM EDT) Only the most recent of4 resultswithin the time period is included. [facility] CCF CMV DNA PLAS JESSICA+PROBE-ACN C Not detected Not Detected CCF 11/11/2024 5:06 AM EDT 11/11/2024 1:39 PM EDT Narrative MALLORY - 11/11/2024 10:07 PM EDT Specimen Type: BLOOD SPECIMEN Ordering Facility: [facility] Address: [address] [place] [address] Original Ordering Provider: DAVID BLACKBURN Generic External Data Provider CLINISYNC F inal Result CLINISYNC CC [address] [address] * (ABNORMAL) CCF BAS METAB 2000 PNL SERPL (11/08/2024 5:21 AM EDT) [facility] GLUCOSE SERPL-MCNC 92 74 - 99 mg/dL CCF Comment: The [place] [employer] (ADA) provides guidance for cutoff [...] Standards of Medical Care in Diabetes 2016, [place] [employer]. Diabetes Care. 2016.39(Suppl 1). C[facility] [...] AM EDT 11/08/2024 7:52 AM EDT Narrative MALLORY - 11/08/2024 8:26 AM EDT Specimen Type: BLOOD SPECIMEN Ordering Facility: [facility] Address: [address] [place] [address] Original Ordering Provider: KELL TIRADO us Generic External Data Provider MALLORY uribe Result MALLORY DIAF [address] [place] [phone] * (ABNORMAL) [facility] ALBUMIN SERPL-MCNC (11/08/2024 5:21 AM EDT) [facility] ALBUMIN SERPL-MCNC 3.4(L) 3.9 - 4.9 g/dL [facility] 11/08/2024 5:21 AM EDT 11/08/2024 7:52 AM EDT Narrative CLINISYNC - 11/08/2024 8:26 AM EDT Specimen Type: BLOOD SPECIMEN Ordering Facility: [facility] Address: [address] [place] [address] Original Ordering Provider: CAMILA PALMER Generic External Data Provider CLINISYNC F inal Result Performing Organization Address [facility] Co de Phone Number [facility] [address] [place] [phone] * (ABNORMAL) C[facility] CK SERPL-CCNC (11/04/2024 5:10 AM EDT) [facility] CK SERPL-CCNC 10(L) 51 - 298 U/L [facility] 11/04/2024 5:10 AM EDT 11/04/2024 9:37 AM EDT Narrative CLINISYNC - 11/04/2024 12:03 PM EDT Specimen Type: BLOOD SPECIMEN Ordering Facility: [facility] Address: [address] [place] [address] Original Ordering Provider: DAVID BLACKBURN us Generic External Data Provider CLINISYNC F inal Result Performing Organization Address [facility] Co de Phone Number [facility] [address] [place] [phone] * (ABNORMAL) [facility] RENAL FUNC 2000 PNL SERPL (11/02/2024 6:40 AM EDT) Only the most recent of3 resultswithin the time period is included. [facility] ALBUMIN SERPL-MCNC 2.6(L) 3.9 - 4.9 g/dL CCF CCF CALCIUM SERPL-MCNC 8.5 8.5 - 10.2 mg/dL CCF [facility] PHOSPHATE SERPL-MCNC 4.2 2.7 - 4.8 mg/dL CCF CCF GLUCOSE SERPL-MCNC 107(H) 74 - 99 mg/dL CCF Comment: The [place] [employer] (ADA) provides guidance for cutoff [...] Standards of Medical Care in Diabetes 2016, [place] [employer]. Diabetes Care. 2016.39(Suppl 1). [facility] BUN SERPL-MCNC 7(L) 9 - 24 mg/dL CCF C[facility] CREAT SERPL-MCNC 0.84 0.73 - 1.22 mg/dL CCF CCF SODIUM SERPL-SCNC 134(L) 136 - 144 mmol/L CCF CCF POTASSIUM SERPL-SCNC 4.7 3.7 - 5.1 mmol/L CCF CCF CHLORIDE SERPL-SCNC 99 98 - 107 mmol/L CCF CCF CO2 SERPL-SCNC 25 22 - 30 mmol/L CCF CCF ANION GAP SERPL-SCNC 10 8 - 15 mmol/L CCF EGFRCR SERPLBLD CKD-EPI 2020 93 >=60 mL/min/1.7 3m??? CCF Comment:Estimated Glomerular Filtration Rate (eGFR) is calculated using the 2020 CKD-EPI creatinine equation. This equation utilizes serum creatinine, sex, and age as parameters. The creatinine assay has traceable calibration to isotope dilution- mass spectrometry. Refer to KDIGO guidelines for clinical interpretation. In patients with unstable renal function, e.g. those with acute kidney injury, the eGFR may not accurately reflect actual GFR. 11/02/2024 6:40 AM EDT 11/02/2024 7:55 AM EDT Narrative CLINISYNC - 11/02/2024 8:37 AM EDT Specimen Type: BLOOD SPECIMEN Ordering Facility: [facility] Address: [address] [place] [address] Original Ordering Provider: CAMILA PALMER Generic External Data Provider CLINISYNC F inal Result Performing Organization Address [facility] de Phone Number MALLORY CC [address] [place] [phone] * CCF VIT B12 SERPL-MCNC (11/01/2024 5:01 AM EDT) Only the most recent of2 resultswithin the time period is included. [facility] VIT B12 SERPL-MCNC 878 232 - 1,245 pg/mL CCF 11/01/2024 5:01 AM EDT 11/01/2024 7:20 AM EDT Narrative CLINISYNC - 11/01/2024 9:40 AM EDT Specimen Type: BLOOD SPECIMEN Ordering Facility: [facility] Address: [address] [place] [address] Original Ordering Provider: JONAS CUNNINGHAM Generic External Data Provider CLINISYNC F inal Result Performing Organization Address [facility] de Phone Number MALLORY CC [address] [place] [address] * (ABNORMAL) [facility] IRON+TIBC PNL SERPL (11/01/2024 5:01 AM EDT) Only the most recent of2 resultswithin the time period is included. [facility] IRON SERPL-MCNC 28(L) 41 - 186 ug/dL CCF CCF TIBC SERPL-MCNC 74(L) 232 - 386 ug/dL CCF CCF IRON/TIBC SERPL-SRTO 37.8 20.0 - 55.0 % CCF 11/01/2024 5:01 AM EDT 11/01/2024 7:20 AM EDT Narrative CLINISYNC - 11/01/2024 9:26 AM EDT Specimen Type: BLOOD SPECIMEN Ordering Facility: [facility] Address: [address] [place] [address] Original Ordering Provider: JONAS CUNNINGHAM us Generic External Data Provider CLINISYNC F inal Result Performing Organization Address [facility] de Phone Number MALLORY CC [address] [place] [address] * CCF FOLATE SERPL-MCNC (11/01/2024 5:01 AM EDT) Only the most recent of2 resultswithin the time period is included. [facility] FOLATE SERPL-MCNC 9.2 >4.7 ng/mL CCF 11/01/2024 5:01 AM EDT 11/01/2024 7:20 AM EDT Narrative CLINISYNC - 11/01/2024 9:40 AM EDT Specimen Type: BLOOD SPECIMEN Ordering Facility: [facility] Address: [address] [place] [address] Original Ordering Provider: JONAS CUNNINGHAM us Generic External Data Provider CLINISYNC F inal Result Performing Organization Address [facility] de Phone Number MALLORY CC [address] [place] [phone] * (ABNORMAL) [facility]CF FERRITIN SERPL-MCNC (11/01/2024 5:01 AM EDT) Only the most recent of2 resultswithin the time period is included. [facility] FERRITIN SERPL-MCNC 5,826.0(H) 30.3 - 565.7 ng/mL CCF 11/01/2024 5:01 AM EDT 11/01/2024 7:20 AM EDT Narrative CLINISYNC - 11/01/2024 10:23 AM EDT Specimen Type: BLOOD SPECIMEN Ordering Facility: [facility] Address: [address] [place] [address] Original Ordering Provider: JONAS CUNNINGHAM us Generic External Data Provider CLINISYNC F inal Result Performing Organization Address City/[facility] Co de Phone Number CLINBenson [facility] BiosystemsGARRICK CCF [address] [place] [address] * CCF BACTERIA SPEC ANAEROBE CULT (10/30/2024 1:44 PM EDT) Only the most recent of5 resultswithin the time period is included. [facility] BACTERIA SPEC ANAEROBE CULT CULTURE, ANAEROBE: Negative for anaerobes. CCF 10/30/2024 1:44 PM EDT 10/30/2024 5:57 PM EDT Narrative CLINISYNC - 11/04/2024 11:29 AM EDT Original Ordering Provider: ROSALINDA SUN Generic External Data Provider CLINISYNC F inal Result Performing Organization Address [facility] de Phone Number REIDBenson Hill BiosystemsGARRICK CCJaxon [address] [address] * CCF BACTERIA FLD CULT (10/30/2024 1:44 PM EDT) Only the most recent of5 resultswithin the time period is included. [facility] BACTERIA FLD CULT CULTURE, BODY FLD: No growth [facility] C[facility] BACTERIA FLD CULT GRAM STAIN: No organisms seen [facility]CF CCF BACTERIA FLD CULT Rare Polymorphonuclear leukocytes C[facility] CCF BACTERIA FLD CULT Gram stain performed on cytospun specimen. CCF CCF BACTERIA FLD CULT Gram stain from primary specimen CCF 10/30/2024 1:44 PM EDT 10/30/2024 5:57 PM EDT Narrative CLINISYNC - 11/05/2024 1:43 PM EDT Original Ordering Provider: ROSALINDA SUN Generic External Data Provider CLINISYNC F inal Result Performing Organization Address [facility] de Phone Number REIDB[facility] BiosystemsGARRICK CCJaxon [address] [address] * (ABNORMAL) [facility] BACTERIA WND CULT (10/17/2024 4:51 PM EDT) Only the most recent of2 resultswithin the time period is included. CCF BACTERIA WND CULT ORGANISM ID: 1(A) CCF CCF BACTERIA WND CULT Moderate Vancomycin resistant Enterococcus faecium CCF CCF BACTERIA WND CULT Cephalosporins, clindamycin, and TMP-SMX are not effective for the treatment of enterococcal infections. CCF CCF BACTERIA WND CULT GRAM STAIN: Many Gram positive cocci (A) CCF CCF BACTERIA WND CULT Rare Polymorphonuclear leukocytes(A) CCF CCF BACTERIA WND CULT ORGANISM ID: 1 (VANCOMYCIN RESISTANT ENTEROCOCCUS FAECIUM) ANTIBIOTIC INTERPRETATION LORA STATUS REFERENCE RANGE (A) CCF CCF BACTERIA WND CULT Ampicillin R >8 F Susceptible <=8 , Resistant >8 (A) CCF CCF BACTERIA WND CULT Vancomycin R >16 F Susceptible <=4 , Intermediate >4 , Resistant >16 (A) CCF CCF BACTERIA WND CULT Daptomycin S 4 F Susceptible <=4 , Resistant >4 (A) CCF CCF BACTERIA WND CULT Enterococcus faecium susceptibility to daptomycin was determined with the understanding that the drug would be dosed at 8-12 mg/kg per 24 hours. CCF CCF BACTERIA WND CULT Linezolid S 2 F Susceptible <=2 , Intermediate >2 , Resistant >4 (A) CCF 10/17/2024 4:51 PM EDT 10/17/2024 10:20 PM EDT Narrative CLINISYNC - 10/20/2024 10:46 AM EDT Original Ordering Provider: OTTO GALLEGOS us Generic External Data Provider MALLORY uribe Result MALLORY CCJaxon [address] [facility] [address] [place] [address] CCF * ECHO (10/17/2024 11:11 AM EDT) Anatomical Region Laterality Modality Other 10/17/2024 11:1 1 AM EDT Narrative 10/17/2024 2:52 PM EDT Echocardiography Report: Transthoracic Echo [facility] Bedside Date of service: 10/17/2024 11:11:17 AM RN Ordering physician: CINDI BECKETT Exam indication: Shortness of Breath Technologist: Ria Weaver Interpreting physician: Lena Andrade MD PATIENT: Name: MR. LOYD BLANDON : 1955 Age: 69 years Gender: [...] effusion. There is an epicardial fat pad. CONCLUSIONS: - Technically difficult exam [...] * * * Final * * * [employer] : [id number]^[employer]^SI^SUID Procedure Note Radiology, Radiologist, - 10/17/2024 Echocardiography Report: Transthoracic Echo [facility] [place] Bed[facility] Date of service: 10/17/2024 11:11:17 AM RN Ordering physician: CINDI BECKETT Exam indication: Shortness of Breath Technologist: Ria Weaver Interpreting physician: Lena Andrade MD PATIENT: Name: MR. LOYD BLANDON : 1955 Age: 69 years Gender: M History of hypertension and chronic kidney disease. Previous cardiovascular interventions: Liver transplant Primary rhythm: sinus. Height: 175.30 cm BSA: 1.82 m??? Weight: 67.80 kg BMI: 22.1 kg/m??? Heart rate 78 bpm Blood pressure 136/79 mmHg Technically difficult exam due to body habitus and suboptimal positioning. Color Doppler was utilized to interrogate the cardiac valves assessed andspectral Doppler was utilized to determine the flow velocities andpressure gradients reported in this exam. MEASUREMENTS: Value [...] systolic pressure is not reported due to aninsufficient tricuspid regurgitation signal. Estimated right atrialpressure is 8 mmHg based on IVC assessment. RIGHT ATRIUM Inferior Vena Cava: The inferior vena cava appears normal measuring 1.5 cm. The vesseldecreases less than 50 percent with inspiration. MITRAL VALVE There is trace mitral valve regurgitation. There is mild thickening. Thepressure half time is 54 msec. The peak mitral E/A ratio is 0.99. Theaverage mitral E/e' ratio is 7.5. The mitral flow deceleration time is 187msec. TRICUSPID VALVE There is trace tricuspid valve regurgitation. There is no thickening. AORTIC VALVE There is no aortic valve regurgitation. Tricuspid aortic valve. There ismild thickening. There is mild calcification. The peak gradient is 6 mmHg(peak velocity = 118.1 cm/s). PULMONIC VALVE The pulmonic valve was not seen or not interrogated. There is tracepulmonic valve regurgitation. PERICARDIUM There is no pericardial effusion. There is a right pleural effusion. Thereis an epicardial fat pad. CONCLUSIONS: - Technically difficult exam due to body habitus and suboptimalpositioning. - Exam indication: Shortness of Breath - The left ventricle is normal in size. Left ventricular systolic functionis normal. EF = 55 ??? 5% (visual est.) - Aortic sclerosis. - Exam was compared with the prior echocardiographic exam performed on09/21/2024. Right pleural effusion seen. * * * Final * * * CC [employer] :[id number]^[employer]^SI^SUID us Generic External Data Provider CLINISYmSilica IMAGING Final Result * CCF CYTOLOGY NON-CIRCULAR KNIFE CUTTER MACHINE (10/14/2024 3:31 PM EDT) Only the most recent of2 resultswithin the time period is included. CCF CASE REPORT CCF Comment: Medical Cytology Report Case: [id number] Authorizing Provider: Nilay Villatoro MD Collected: 10/14/2024 03:31 PM Ordering Location: [place] [address] Received: 10/14/2024 06:22 PM Pathologist: Belén Green MD Specimen: Pleural Cavity, Left CCF FINAL DIAGNOSIS CCF Comment: A. Left Pleural Cavity Fluid: Negative for malignant cells. Acute inflammation. Reactive mesothelial cells. The following cell blocks were associated with this case: A1 Cell Block, Alcohol Fixed at 1715 EDT CCF GROSS DESCRIPTION CCF Comment: A. Pleural Cavity, Left 60 cc cloudy kaylie fluid with material. ThinPrep and Cell Block prepared. CCF CLINICAL HISTORY CCF Comment: Pre-op diagnosis: Pleural effusion [J90] CCF ORDER COMMENT CCF Comment: Pre-op diagnosis: Pleural effusion [J90] CCF FINAL PERFORMING LAB CCF Comment: Technical component, attorney law clerk screening performed at: [facility], [address] [place] [address], [place] [address] CLIA: [id number] Diagnostic interpretation performed at: [facility], [address] [place] [address] CLIA# [id number] Dean Of Boys: Emmett New MD AP DISCLAIMER CCF Comment: Laboratory Developed Test (LDT) Disclaimer: Performance characteristics of immunohistochemical, immunofluorescent, and chromogenic in-situ hybridization tests have been determined by the performing laboratory within [facility] Pathology and Laboratory Medicine Department ([facility], [facility], [facility], [facility], [facility], [facility], or [facility]) in a manner consistent with CLIA requirements. One or more of these tests may not have been cleared or approved by the FDA. [facility] is regulated under CLIA as qualified to perform high-complexity testing. These tests are used for clinical purposes. These should not be regarded as investigational or for research. Positive and negative controls stain appropriately. 10/14/2024 3:31 PM EDT 10/14/2024 7:02 PM EDT Narrative CLINISYNC - 10/15/2024 5:15 PM EDT Specimen Type: SPECIMEN FROM PLEURA OBTAINED BY THORACENTESIS Ordering Facility: [facility] Address: [address] [place] [address] Original Ordering Provider: NILAY VILLATORO Generic External Data Provider CLINISYNC F inal Result Performing Organization Address [facility] Co de Phone Number MALLORY CC [address] [place] [phone] * CCF O+P SPEC MICRO (10/12/2024 8:10 PM EDT) CCF O+P SPEC MICRO OVA AND PARASITE EXAM: No Parasites Seen CCF 10/12/2024 8:10 PM EDT 10/12/2024 11:46 PM EDT Narrative CLINISYNC - 10/16/2024 3:03 PM EDT Original Ordering Provider: CINDI BECKETT us Generic External Data Provider CLINISYNC F inal Result Performing Organization Address [facility] Co de Phone Number MALLORY CC [address] [place] [phone] * (ABNORMAL) CCF RESP PATH 12B PNL SPEC JESSICA+PROBE (10/08/2024 11:54 PM EDT) CCF RESP PATH 12B PNL SPEC JESSICA+PROBE SARS-COV-2 (AGENT OF COVID-19) RNA: Not detected (A) CCF CCF RESP PATH 12B PNL SPEC JESSICA+PROBE INFLUENZA A RNA: Not detected (A) CCF CCF RESP PATH 12B PNL SPEC JESSICA+PROBE INFLUENZA B RNA: Not detected (A) CCF CCF RESP PATH 12B PNL SPEC JESSICA+PROBE RESPIRATORY SYNCYTIAL VIRUS (RSV) RNA: Not detected (A) CCF CCF RESP PATH 12B PNL SPEC JESSICA+PROBE HUMAN METAPNEUMOVIRUS (HMPV) RNA: Not detected (A) CCF CCF RESP PATH 12B PNL SPEC JESSICA+PROBE HUMAN RHINOVIRUS/ENTEROV IRUS RNA: Not detected (A) CCF CCF RESP PATH 12B PNL SPEC JESSICA+PROBE ADENOVIRUS DNA: Not detected (A) CCF CCF RESP PATH 12B PNL SPEC JESSICA+PROBE PARAINFLUENZA 1 RNA: Not detected (A) CCF CCF RESP PATH 12B PNL SPEC JESSICA+PROBE PARAINFLUENZA 2 RNA: Not detected (A) CCF CCF RESP PATH 12B PNL SPEC JESSICA+PROBE PARAINFLUENZA 3 RNA: Detected (A) CCF CCF RESP PATH 12B PNL SPEC JESSICA+PROBE PARAINFLUENZA 4 RNA: Not detected (A) CCF CCF RESP PATH 12B PNL SPEC JESSICA+PROBE CORONAVIRUS 229E RNA: Not detected (A) CCF CCF RESP PATH 12B PNL SPEC JESSICA+PROBE CORONAVIRUS OC43 RNA: Not detected (A) CCF CCF RESP PATH 12B PNL SPEC JESSICA+PROBE CORONAVIRUS NL63 RNA: Not detected (A) CCF CCF RESP PATH 12B PNL SPEC JESSICA+PROBE CORONAVIRUS HKU1 RNA: Not detected (A) CCF CCF RESP PATH 12B PNL SPEC JESSICA+PROBE CHLAMYDIA PNEUMONIAE DNA: Not detected (A) CCF CCF RESP PATH 12B PNL SPEC JESSICA+PROBE MYCOPLASMA PNEUMONIAE DNA: Not detected (A) CCF CCF RESP PATH 12B PNL SPEC JESSICA+PROBE BORDETELLA PERTUSSIS DNA: Not detected (A) CCF CCF RESP PATH 12B PNL SPEC JESSICA+PROBE BORDETELLA PARAPERTUSSIS DNA: Not detected (A) CCF 10/08/2024 11:5 4 PM EDT 10/09/2024 12:50 AM EDT Narrative MALLORY - 10/09/2024 1:41 AM EDT Original Ordering Provider: CINDI BECKETT us Generic External Data Provider MALLORY Coates inaeric Result MALLORY CCJaxon [address] [facility] [place] [phone] * CT BRAIN WO IVCON (10/07/2024 3:00 PM EDT) Anatomical Region Laterality Modality Other 10/07/2024 3:00 PM EDT Narrative 10/07/2024 3:24 PM EDT * * *Final Report* * * DATE OF EXAM: Oct 07 2024 3:00PM [facility] 0504 - CT BRAIN WO [...] PROCESS. NO SIGNIFICANT INTERVAL CHANGE SINCE 08/27/2024. Assembler Adjuster: SRINI Transcribe Date/Time: Oct 07 2024 3:20P Dictated by : ROSAURA CERVANTES MD This examination was interpreted and the report reviewed and electronically signed by: ROSAURA CERVANTES MD on Oct 07 2024 3:22PM EST [id number]^SI^ACN Procedure Note Radiology, Radiologist, MD - 10/07/2024 * * *Final Report* * * DATE OF EXAM: Oct 07 2024 3:00PM [facility] 0504 - CT BRAIN WO [...] PROCESS. NO SIGNIFICANT INTERVAL CHANGE SINCE 08/27/2024. Assembler Adjuster: SRINI Transcribe Date/Time: Oct 07 2024 3:20P Dictated by : ROSAURA CERVANTES MD This examination was interpreted and the report reviewed and electronically signed by: ROSAURA CERVANTES MD on Oct 07 2024 3:22PM EST [id number]^SI^ACN Generic External Data Provider [facility] Final Result * CT ABD/PEL WO IVCON (10/07/2024 3:00 PM EDT) Anatomical Region Laterality Modality Other 10/07/2024 3:00 PM EDT Narrative 10/07/2024 4:03 PM EDT * * *Final Report* * * DATE OF EXAM: Oct 07 2024 3:00PM [facility] 0531 - CT ABD/PEL WO [...] T11 vertebral body. COMMUNICATION: Communicated with DAVID BLACKBURN on 10/07/2024 3:54 PM via verbal communication. Assembler Adjuster: SRINI Transcribe Date/Time: Oct 07 2024 3:17P Dictated by : JOSE GUADALUPE MURPHY MD This examination was interpreted and the report reviewed and electronically signed by: JOSE GUADALUPE MURPHY MD on Oct 07 2024 4:01PM EST [id number]^SI^ACN Procedure Note Radiology, Radiologist, - 10/07/2024 * * *Final Report* * * DATE OF EXAM: Oct 07 2024 3:00PM [facility] 0531 - CT ABD/PEL WO [...] T11 vertebral body. COMMUNICATION: Communicated with DAVID BLACKBURN on 10/07/2024 3:54 PM via verbal communication. Assembler Adjuster: [facility] Transcribe Date/Time: Oct 07 2024 3:17P Dictated by : JOSE GUADALUPE MURPHY MD This examination was interpreted and the report reviewed and electronically signed by: JOSE GUADALUPE MURPHY MD on Oct 07 2024 4:01PM EST [id number]^SI^ACN Generic External Data Provider [facility] Final Result * (ABNORMAL) [facility] LACTATE BLD-SCNC (10/04/2024 6:32 AM EDT) [facility] LACTATE BLD-SCNC 0.4(L) 0.5 - 2.2 mmol/L [facility] 10/04/2024 6:32 AM EDT 10/04/2024 1:36 PM EDT Narrative [facility] - 10/04/2024 2:51 PM EDT Specimen Type: BLOOD SPECIMEN Ordering Facility: [facility] Address: [address] [place] [address] Original Ordering Provider: CAMILA PALMER Generic External Data Provider [facility] F inal Result Performing Organization Address [facility] Co de Phone Number MALLORY DIAF [address] [address] * [facility] KETONES/ACETONE/BHB (10/04/2024 6:32 AM EDT) Pathologist [facility] C[facility] B-OH-BUTYR SERPL-SCNC 0.20 <0.28 mmol/L [facility] 10/04/2024 6:32 AM EDT 10/04/2024 7:38 AM EDT Narrative [facility] - 10/04/2024 8:49 AM EDT Specimen Type: BLOOD SPECIMEN Ordering Facility: [facility] Address: [address] [place] [address] Original Ordering Provider: CAMILA PALMER Generic External Data Provider [facility] F inal Result Performing Organization Address [facility] de Phone Number MALLORY SOMMER [address] [place] [address] * (ABNORMAL) [facility] CBC PNL BLD AUTO (10/02/2024 4:12 AM EDT) [facility] WBC # BLD AUTO 8.23 3.70 - 11.00 k/uL [facility] RBC # BLD AUTO 2.53(L) 4.20 - 6.00 m/uL [facility]CF [facility] HGB BLD-MCNC 7.8(L) 13.0 - 17.0 g/dL [facility]CF [facility] HCT VFR BLD AUTO 24.3(L) 39.0 - 51.0 % [facility] MCV RBC AUTO 96.0 80.0 - 100.0 fL [facility]CF [facility] MCH RBC QN AUTO 30.8 26.0 - 34.0 pg CCF [facility] MCHC RBC AUTO-MCNC 32.1 30.5 - 36.0 g/dL [facility]CF [facility] RDW RBC-RTO 15.9(H) 11.5 - 15.0 % [facility]CF [facility]CF PLATELET # BLD AUTO 466(H) 150 - 400 k/uL CCF [facility]CF PMV BLD AUTO 9.1 9.0 - 12.7 fL CCF CCF NRBC # BLD AUTO <0.01 <0.01 k/uL [facility] 10/02/2024 4:12 AM EDT 10/02/2024 7:47 AM EDT Narrative MALLORY - 10/02/2024 9:13 AM EDT Specimen Type: BLOOD SPECIMEN Ordering Facility: [facility] Address: [address] [place] [address] Original Ordering Provider: JONAS CUNNINGHAM Generic External Data Provider MALLORY uribe Result Performing Organization Address City/State/[facility] Co de Phone Number CLINYI CC [address] [place] [address] * ECG 12-LEAD (09/29/2024 5:07 PM EDT) Anatomical Region Laterality Modality Other 09/29/2024 5:07 PM EDT Narrative 09/30/2024 9:46 PM EDT Ventricular Rate : 68 BPM Atrial Rate : 68 BPM P-R Interval : 118 ms QRS Duration : 80 ms Q-T Interval : 392 ms QTC Calculation(Bazett) : 416 ms Calculated P [place] : 15 degrees Calculated R [place] : 16 degrees Calculated T [place] : 17 degrees NORMAL SINUS RHYTHM WITH SINUS ARRHYTHMIA Confirmed by NEGRO SLATER MD ([id number]) on 09/30/2024 9:46:56 PM NAME : LOYD BLANDON PID : [id number] : 1955 Gender : Male Race : ORD : [id number] Procedure Date : Sep 29 2024 17:07:01 Edit Date : Sep 30 2024 21:46:57 Diagnosis: NORMAL SINUS RHYTHM WITH SINUS ARRHYTHMIA Confirmed by NEGRO SLATER MD ([id number]) on 09/30/2024 9:46:56 PM Test Reason : Left chest pain - feels more like muscular pain, no radiation, started 3 days a Location : 519 : SMAV Overread By : NEGRO SLATER MD Edited By : NEGRO SLATER MD Referred By : , Acquired by : ALAN ISRAEL RN, Procedure Note Radiology, Radiologist, - 09/30/2024 Ventricular Rate : 68 BPM Atrial Rate : 68 BPM P-R Interval : 118 ms QRS Duration : 80 ms Q-T Interval : 392 ms QTC Calculation(Bazett) : 416 ms Calculated P [place] : 15 degrees Calculated R [place] : 16 degrees Calculated T [place] : 17 degrees NORMAL SINUS RHYTHM WITH SINUS ARRHYTHMIA Confirmed by NEGRO SLATER MD ([id number]) on 09/30/2024 9:46:56 PM NAME : LOYD BLANDON PID : [id number] : 1955 Gender : Male Race : ORD : [id number] Procedure Date : Sep 29 2024 17:07:01 Edit Date : Sep 30 2024 21:46:57 Diagnosis: NORMAL SINUS RHYTHM WITH SINUS ARRHYTHMIA Confirmed by NEGRO SLATER MD ([id number]) on 09/30/2024 9:46:56 PM Test Reason : Left chest pain - feels more like muscular pain, noradiation, started 3 days a Location : 519 : SMAV Overread By : NEGRO SLATER MD Edited By : NEGRO SLATER MD Referred By : , Acquired by : LAAN ISRAEL RN, Generic External Data Provider [facility] IMAG[facility] Final Result * ECG01 (09/29/2024 5:07 PM EDT) Anatomical Region Laterality Modality Other 09/29/2024 5:07 PM EDT Narrative 09/30/2024 9:47 PM EDT Ventricular Rate : 71 BPM Atrial Rate : 71 BPM P-R Interval : 128 ms QRS Duration : 76 ms Q-T Interval : 396 ms QTC Calculation(Bazett) : 430 ms Calculated P [place] : 6 degrees Calculated R [place] : 19 degrees Calculated T [place] : 23 degrees NORMAL SINUS RHYTHM LOW VOLTAGE QRS, CONSIDER PULMONARY DISEASE, PERICARDIAL EFFUSION, OR NORMAL VARIANT BORDERLINE ECG Confirmed by NEGRO SLATER MD ([id number]) on 09/30/2024 9:47:02 PM NAME : LOYD BLANDON PID : [id number] : 1955 Gender : Male Race : ORD : Procedure Date : Sep 29 2024 17:07:42 Edit Date : Sep 30 2024 21:47:07 Diagnosis: NORMAL SINUS RHYTHM LOW VOLTAGE QRS, CONSIDER PULMONARY DISEASE, PERICARDIAL EFFUSION, OR NORMAL VARIANT BORDERLINE ECG Confirmed by NEGRO SLATER MD ([id number]) on 09/30/2024 9:47:02 PM Test Reason : Location : 519 : SMAV Overread By : NEGRO SLATER MD Edited By : NEGRO SLTAER MD Referred By : , Acquired by : ALAN ISRAEL RN, Procedure Note Radiology, Radiologist, MD - 09/30/2024 Ventricular Rate : 71 BPM Atrial Rate : 71 BPM P-R Interval : 128 ms QRS Duration : 76 ms Q-T Interval : 396 ms QTC Calculation(Bazett) : 430 ms Calculated P [place] : 6 degrees Calculated R [place] : 19 degrees Calculated T [place] : 23 degrees NORMAL SINUS RHYTHM LOW VOLTAGE QRS, CONSIDER PULMONARY DISEASE, PERICARDIAL EFFUSION, ORNORMAL VARIANT BORDERLINE ECG Confirmed by NEGRO SLATER MD ([id number]) on 09/30/2024 9:47:02 PM NAME : LOYD BLANDON PID : [id number] : 1955 Gender : Male Race : ORD : Procedure Date : Sep 29 2024 17:07:42 Edit Date : Sep 30 2024 21:47:07 Diagnosis: NORMAL SINUS RHYTHM LOW VOLTAGE QRS, CONSIDER PULMONARY DISEASE, PERICARDIAL EFFUSION, ORNORMAL VARIANT BORDERLINE ECG Confirmed by NEGRO SLATER MD ([id number]) on 09/30/2024 9:47:02 PM Test Reason : Location : 519 : SMAV Overread By : NEGRO SLATER MD Edited By : NEGRO SLATER MD Referred By : , Acquired by : ALAN ISRAEL RN, Generic External Data Provider [facility] Final Result * TISS PATH BX REPORT (09/09/2024 10:57 AM EDT) Only the most recent of3 resultswithin the time period is included. C[facility] CASE REPORT CCF Comment: Surgical Pathology Report Case: [id number] Authorizing Provider: Hal Weir Kin, Collected: 09/09/2024 10:57 AM Ordering Location: Admitting Received: 09/10/2024 08:49 AM Pathologist: Sindhu Castañeda MD Specimens: A) - Liver, Resection B) - Gallbladder CCF FINAL DIAGNOSIS CCF Comment: A. [place] liver, explant for transplantation. - Moderately differentiated hepatocellular carcinoma. See comment and synoptic report. - No evidence of lymphovascular space invasion. - Cirrhosis, etiology not apparent histologically. - Negative surgical margins. B. Gallbladder, cholecystectomy: - Chronic cholecystitis with cholelithiasis. at 1250 EDT CCF DIAGNOSIS COMMENT CCF Comment: A. The sections show liver parenchyma with [...] consistent with an hepatocellular carcinoma. Dr. Paulina Prado has reviewed selected slides on the lesion and concurs. BLOCK FOR ADDITIONAL BIOMARKERS/MOLECULAR STUDIES A4 CCF CCF SYNOPTIC REPORT CCF Comment: HEPATOCELLULAR CARCINOMA HEPATOCELLULAR CARCINOMA: RESECTION - A [...] 1, 8th Ed.) it is the managing physician???s responsibility to establish the final pathologic stage based upon all pertinent information, including but potentially not limited to this pathology report. pT Category: pT1a pN Category: pN not assigned (no nodes submitted or found) ADDITIONAL FINDINGS Additional Findings: Cirrhosis CCF GROSS DESCRIPTION CCF Comment: A. Liver, Resection Received fresh and fixed [...] are prominent. Bile lakes are not present. [place]ose[place] B[employer] Coverer sections are submitted as follows: A1: Hepatic artery, portal vein and probable hepatic duct margins A2: Hepatic vein margins A3-A6: Right lobe lesion, entirely submitted A7: [place] [employer]ove[employer] section of left lobe A8: [place] [place] section of right lobe A9: [place] [employer] section of caudate lobe A10: [place] [employer] section of quadrate lobe Gross examination performed at [facility], [address] [place] [id number] 09/10/24 10:55 AM B. Gallbladder Received fixed [...] cystic duct. The mucosa brown-bazzi and unremarkable. [place] [employer] Coverer sections are submitted in B1. Gross examination performed at [facility], [address] [place] [address] 09/10/24 4:40 PM's CCF CLINICAL HISTORY CCF Comment: Pre-op diagnosis: Decompensated cirrhosis (HCC) [K72.90, K74.60] CCF FINAL PERFORMING LAB CCF Comment: Diagnostic interpretation performed at: [facility], [address] [place] [address], [place] [address] CLIA# [id number] Dean Of Boys: Emmett New MD AP DISCLAIMER CCF Comment: Laboratory Developed Test (LDT) Disclaimer: Performance characteristics of immunohistochemical, immunofluorescent, and chromogenic in-situ hybridization tests have been determined by the performing laboratory within [facility] Path[facility] and Laboratory Medicine Department ([facility], [facility], [facility], [facility], [facility], [facility], or [facility]) in a manner consistent with CLIA requirements. One or more of these tests may not have been cleared or approved by the FDA. [facility] is regulated under CLIA as qualified to perform high-complexity testing. These tests are used for clinical purposes. These should not be regarded as investigational or for research. Positive and negative controls stain appropriately. 09/09/2024 10:5 7 AM EDT 09/10/2024 8:49 AM EDT Narrative [facility] - 09/20/2024 12:50 PM EDT Specimen Type: TISSUE SPECIMEN Ordering Facility: [facility] Address: [address] [place] [address] Original Ordering Provider: HAL WEIR Generic External Data Provider LAB BLOOD ORDERAB LES Final Result Performing Organization Address [facility] Co de Phone Number MALLORY DIA [address] [place] [address] * CCF MICROORGANISM SPEC CULT (09/09/2024 10:42 AM EDT) CCF MICROORGANISM SPEC CULT CULTURE, FUNGAL: No Fungus isolated after 28 days CCF CCF MICROORGANISM SPEC CULT FUNGAL SMEAR: No fungus seen CCF 09/09/2024 10:4 2 AM EDT 09/09/2024 10:57 AM EDT Narrative [facility] - 10/07/2024 2:01 PM EDT Original Ordering Provider: HAL WEIR Generic External Data Provider [facility] F inal Result Performing Organization Address [facility] Co de Phone Number MALLORY DIA [address] [place] [phone] * CCF FLUABV+SARS-COV-2+RSV PNL RESP JESSICA+PROBE (09/08/2024 4:50 PM EDT) CCF FLUABV+SARS-C OV-2+RSV PNL RESP JESSICA+PROBE SARS-COV-2 (AGENT OF COVID-19) RNA: Not detected CCF CCF FLUABV+SARS-C OV-2+RSV PNL RESP JESSICA+PROBE INFLUENZA A RNA: Not detected CCF CCF FLUABV+SARS-C OV-2+RSV PNL RESP JESSICA+PROBE INFLUENZA B RNA: Not detected CCF CCF FLUABV+SARS-C OV-2+RSV PNL RESP JESSICA+PROBE RESPIRATORY SYNCYTIAL VIRUS (RSV) RNA: Not detected CCF 09/08/2024 4:50 PM EDT 09/08/2024 5:00 PM EDT Narrative [facility] - 09/08/2024 6:09 PM EDT Original Ordering Provider: ROSALBA SINGH Generic External Data Provider [facility] F inal Result [facility] [address] [facility] [address] [address] * ECG 12 lead (09/08/2024 3:14 PM EDT) Only the most recent of3 resultswithin the time period is included. 09/08/2024 3:14 PM EDT Narrative CCF - 10/01/2024 11:21 AM EDT Ventricular Rate : 74 BPM Atrial Rate : 74 BPM P-R Interval : 156 ms QRS Duration : 98 ms Q-T Interval : 420 ms QTC Calculation(Bazett) : 466 ms Calculated P [place] : 39 degrees Calculated R [place] : 64 degrees Calculated T [place] : 33 degrees SINUS RHYTHM WITH PREMATURE ATRIAL COMPLEXES OTHERWISE NORMAL ECG Confirmed by LUKE BARNES MD ([id number]) on 10/01/2024 11:21:21 AM NAME : LOYD BLANDON PID : [id number] : 1955 Gender : Male Race : ORD : [id number] Procedure Date : Sep 08 2024 15:14:27 Edit Date : Oct 01 2024 11:21:25 Diagnosis: SINUS RHYTHM WITH PREMATURE ATRIAL COMPLEXES OTHERWISE NORMAL ECG Confirmed by LUKE BARNES MD ([id number]) on 10/01/2024 11:21:21 AM Test Reason : Pre-OP Location : 80 : G100 G100-5 Overread By : LUKE BARNES MD Edited By : LUKE BARNES MD Referred By : , Acquired by : TYLER BANERJEE Procedure Note Radiology, Radiologist, MD - 10/01/2024 Ventricular Rate : 74 BPM Atrial Rate : 74 BPM P-R Interval : 156 ms QRS Duration : 98 ms Q-T Interval : 420 ms QTC Calculation(Bazett) : 466 ms Calculated P [place] : 39 degrees Calculated R [place] : 64 degrees Calculated T [place] : 33 degrees SINUS RHYTHM WITH PREMATURE ATRIAL COMPLEXES OTHERWISE NORMAL ECG Confirmed by LUKE BARNES MD ([id number]) on 10/01/2024 11:21:21 AM NAME : LOYD BLANDON PID : [id number] : 1955 Gender : Male Race : ORD : [id number] Procedure Date : Sep 08 2024 15:14:27 Edit Date : Oct 01 2024 11:21:25 Diagnosis: SINUS RHYTHM WITH PREMATURE ATRIAL COMPLEXES OTHERWISE NORMAL ECG Confirmed by LUKE BARNES MD ([id number]) on 10/01/2024 11:21:21 AM Test Reason : Pre-OP Location : 80 : G100 G100-5 Overread By : LUKE BARNES MD Edited By : LUKE BARNES MD Referred By : , Acquired by : TYLER BANERJEE Generic External Data Provider ECG ORDERABLES F inal Result Performing Organization Address City/[facility]/ZIP Co de Phone Number [facility] * CCF BACTERIA BLD CULT (08/23/2024 6:30 PM EDT) Only the most recent of2 resultswithin the time period is included. [facility] CCF BACTERIA BLD CULT CULTURE, BLOOD: No growth 5 days CCF 08/23/2024 6:30 PM EDT 08/23/2024 6:33 PM EDT Narrative [facility] - 08/28/2024 9:01 PM EDT Original Ordering Provider: CALI IYER Generic External Data Provider [facility] F inal Result Performing Organization Address City/[facility] Co de Phone Number [facility] CCF [address] [address] * (ABNORMAL) CBC and differential (08/19/2024 11:32 AM EDT) [facility] WHITE BLOOD CELL COUNT 6.1 3.8 - 10.8 Thousand/u L [facility] RED BLOOD CELL COUNT 3.31(L) 4.20 - 5.80 Million/uL [facility] HEMOGLOBIN 11.2(L) 13.2 - 17.1 g/dL [facility] HEMATOCRIT 32.7(L) 38.5 - 50.0 % [facility] MCV 98.8 80.0 - 100.0 fL [facility] MCH 33.8(H) 27.0 - 33.0 pg [facility] MCHC 34.3 32.0 - 36.0 g/dL [facility] Comment: For adults, a slight decrease in the calculated MCHC value (in the range of 30 to 32 g/dL) is most likely not clinically significant; however, it should be interpreted with caution in correlation with other red cell parameters and the patient's clinical condition. RDW 13.9 11.0 - 15.0 % [facility] PLATELET COUNT 147 140 - 400 Thousand/u L [facility] MPV 10.1 7.5 - 12.5 fL [facility] ABSOLUTE NEUTROPHILS 4,679 1,500 - 7,800 cells/uL [facility] ABSOLUTE LYMPHOCYTES 342(L) 850 - 3,900 cells/uL [facility] ABSOLUTE MONOCYTES 885 200 - 950 cells/uL [facility] ABSOLUTE EOSINOPHILS 153 15 - 500 cells/uL [facility] ABSOLUTE BASOPHILS 43 0 - 200 cells/uL [facility] NEUTROPHILS 76.7 % [facility] LYMPHOCYTES 5.6 % [facility] MONOCYTES 14.5 % [facility] EOSINOPHILS 2.5 % [facility] BASOPHILS 0.7 % [facility] Blood Venous blood specimen / Unknown 08/19/2024 11:32 AM EDT 08/19/2024 11:33 AM EDT Narrative [facility] - 08/20/2024 6:44 AM EDT FASTING:NO FASTING: NO Resulting Agency Comment Performing Organization Information Site ID: QPT Name: [facility] Address: [address] [place] [address], [address] [place] [phone] Director: Roland Duggan MD Xuan MALDONADO LAB BLOOD ORDERABLES Final Res ult [facility] * POCT Glycated hemoglobin, total (11/15/2023 11:40 AM EDT) Hemoglobin A1C 5.3 Blood 11/15/2023 11:4 0 AM EDT Rusty Delgado MD POINT OF CARE TEST ENTER/EDIT ORDERABLES Final Result * Microalbumin / creatinine, urine ratio (05/26/2023 8:31 AM EST) CREATININE, RANDOM URINE 93 20 - 320 mg/dL [facility] ALBUMIN, URINE <0.2 See Note: mg/dL [facility] Comment: Reference Range: Reference Range Not established ALBUMIN/CREATININE RATIO, RANDOM URINE NOTE <30 mcg/mg creat [facility] Comment: NOTE: The urine albumin value is less than 0.2 mg/dL therefore we are unable to calculate excretion and/or creatinine ratio. The ADA defines abnormalities in albumin excretion as follows: Albuminuria Category Result (mcg/mg creatinine) Normal to Mildly increased <30 Moderately increased 30-299 Severely increased > OR = 300 The ADA recommends that at least two of three specimens collected within a 3-6 month period be abnormal before considering a patient to be within a diagnostic category. Urine Urine specimen obtained by clean catch procedure / Unknown 05/26/2023 8:31 AM EST 05/26/2023 3:59 PM EST Narrative [facility] - 05/29/2023 2:42 PM EST FASTING:YES FASTING: YES Resulting Agency Comment Performing Organization Information Site ID: QPT Name: [facility] Address: [address] [place] [address], [address] [place] [phone] Director: Roland Duggan MD Rusty Delgado MD LAB URINE ORDERABLES Final Res ult [facility] * Color Fundus Photography - OU - Both Eyes (05/24/2022 12:00 PM EST) Anatomical Region Laterality Modality Head Fundus Photograp hy 05/24/2022 12:0 0 PM EST Narrative 05/24/2022 12:00 PM EST PERFORMED AT [facility] LOCATION:[id number] [facility] Procedure Note CONVERSION, GENERIC - 08/31/2022 PERFORMED AT [facility] LOCATION:[id number] [facility] Rusty Delgado MD OPHTH PHOTOGRAPHY Final Result from Last 3 Months or Most Recently Relevant to Health Maintenance Insurance [employer] MED[employer]ARE ADVANTAGE Care Teams A Auxiliary Relationship Specialty Start Date End Date Rusty Delgado MD [address] [facility] [address] [place] [address] PCP - [employer] 04/17/22 Rusty Delgado MD [address] [facility] [address] [place] [address] PCP - General Internal Medicine 11/23/22
--- OUTSIDE RECORDS SUMMARY | 2024-11-19 02:27 | XMS_ITS | Encounter Summary ---
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 No 02/19/2024 Hunger Vital Sign [...] Telephone Encounter - Abbi Simmons LPN - 08/20/2024 8:08 AM EDT Approving, but needs appt for additional refills. 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
--- OUTSIDE RECORDS SUMMARY | 2024-11-19 02:27 | XMS_ITS | Encounter Summary ---
Author Organization [facility] Address [address] [place] [address] Care Team Providers Care Industrial Relations Manager Name Role Phone Irena Johnson MD Unavailable Vanessa Arora MD Unavailable [phone] [place] WONG MD, Rusty Gomez Primary Care Provider [phone] Carina Ziegler RN Unavailable Unavailable Source Comments In the event this information is protected by the Federal Confidentiality of Alcohol and Drug AbusePatient Records regulations: The Federal rules restrict any use of the information to criminally investigate or prosecute any alcohol or drug abuse patient.[facility] Encounter Details Date Type Department Care Team (Late st Contact Info) Description 06/18/2024 Patient Update Pulmonary Medicine [address] [id number] Alethea Verdugo MD 5[address] [place] [address] Social History Tobacco Use Types [...] risk 7 04/25/2024 Data from: https://www.neighborhoodatlas.medicine.[facility]/. Last address used for calculation Eugene Genao [...] PM EDT Office Visit Transplant Center [address] [place] [phone] KAYLIE ARELLANO 11/21/2024 5:40 PM EDT Appointment MRI Q [address] [address] Compression fracture of cervical spine, non-traumatic, with delayed healing, subsequent encounter [M48.52XG] 11/21/2024 6:20 PM EDT Appointment MRI Q [address] [address] Compression fracture of cervical spine, non-traumatic, with delayed healing, subsequent encounter [M48.52XG] 11/21/2024 7:00 PM EDT Appointment MRI Q [address] [address] Compression fracture of cervical spine, non-traumatic, with delayed healing, subsequent encounter [M48.52XG] 02/03/2025 9:00 AM EDT [facility] Neurology [address] [id number] Devyn Roach MD [address] [id number] Vertigo [R42] 02/10/2025 11:00 AM EDT Appointment Gastroenterology [address] [address] Jane Correia MD [address]00 [place] [address] Schedule in about 3 months to remove [...] 10/09/2024 1:41 AM EDT Respiratory Rule-Out 10/08/2024 10/08/202410/09/2 025 1:41 AM EDT Parainfluenza Virus Comment:Asymptomatic per RN 10/08/2024 10/08/2024 10/28/2024 8 :47 AM EDT documented as of this encounter Care Teams Industrial Relations Manager Relationship Specialty Start Date End Date Rusty Delgado II, MD 112 [facility] 110 [place] [address] PCP - General Internal Medicine 05/28/24 Irena Johnson MD [address] Willam [address] [facility] [place] [address] Referring Gastroenterology 03/12/24 Vanessa Arora MD [address] [place]rique [place], [place] [address] Primary Staff Physician Cardiology 05/02/24 Carina Ziegler, LEO [facility] [address] [place] [address] Registered Nurse Transplant Center 09/17/24 documented as of this encounter
--- OUTSIDE RECORDS SUMMARY | 2024-11-19 02:27 | XMS_ITS | Encounter Summary ---
Author Organization [facility] Address [address] [facility] [place] [address] Care Team Providers Care Stock Driver Name Role Phone Rusty Delgado MD Unavailable [phone] Rusty Delgado MD Primary Care Provider [phone] Encounter Details Date Type Department Care Team (Late st Contact Info) Description 09/21/2022 Orders Only [facility] [place] [address] [facility] 110 [place] [phone] Rusty Delgado MD [address] [facility] 110 [place] [address] Social History Tobacco Use Types Packs/Day Years Used Date Smoking Tobacco: Never Assessed Sex and Gender Information Value Date Recorded [...] Visit [facility] [place] Whitten [address] [facility] 110 [place] [phone] Rusty Delgado MD [address] [facility] 110 [place] [address] documented as of this encounter Procedures Procedure Name Priority Date/Time Associated Diagnosis Comments SCANNED GI Routine 09/21/2022 3:08 PM EDT documented in this encounter Results * SCANNED GI (09/21/2022 3:08 PM EDT) Anatomical Region Laterality Modality Endoscopy Rusty Delgado MD ENDOSCOPY PROCEDURE ORDERABLES Final Result documented in this encounter Visit Diagnoses Not on filedocumented in this encounter Care Teams Stock Driver Relationship Specialty Start Date End Date Rusty Delgado MD 112 [facility] 110 [place] [address] PCP - [employer] 04/17/22 Rusty Delgado MD 112 [facility] 110 [place] [address] PCP - General Internal Medicine 11/23/22 documented as of this encounter
--- OUTSIDE RECORDS SUMMARY | 2024-11-19 02:27 | XMS_ITS | Encounter Summary ---
Author Organization [facility] Address [address] [place] [address] Care Team Providers Care Bark Peeler Name Role Phone Irena Johnson MD Unavailable Vanessa Arora MD Unavailable [phone] [place] WONG MD, Rusty Gomez Primary Care Provider [phone] Carina Ziegler RN Unavailable Unavailable Source Comments In the event this information is protected by the Federal Confidentiality of Alcohol and Drug AbusePatient Records regulations: The Federal rules restrict any use of the information to criminally investigate or prosecute any alcohol or drug abuse patient.[facility] Encounter Details Date Type Department Care Team (Late st Contact Info) Description 06/19/2024 Patient Msg Gastroenterology [address] [phone] Sarah Black PA-C [address] [phone] paracentesis Social History Tobacco Use Types Packs/Day Years [...] is lower risk 7 04/25/2024 Data from: https://www.neighborhoodatlas.medicine.[facility]/. Last address used for calculation Eugene [...] PM EDT Office Visit Transplant Center 2048 [place] [address] KAYLIE ARELLANO 11/21/2024 5:40 PM EDT Appointment MRI Q [address] [address] Compression fracture of cervical spine, non-traumatic, with delayed healing, subsequent encounter [M48.52XG] 11/21/2024 6:20 PM EDT Appointment MRI Q [address] [address] Compression fracture of cervical spine, non-traumatic, with delayed healing, subsequent encounter [M48.52XG] 11/21/2024 7:00 PM EDT Appointment MRI Q [address] [address] Compression fracture of cervical spine, non-traumatic, with delayed healing, subsequent encounter [M48.52XG] 02/03/2025 9:[address] [facility] Neurology 9300 [place] [address] Devyn Roach MD 9500 [place] [address] Vertigo [R42] 02/10/2025 11:00 AM EDT Appointment Gastroenterology [address] [address] Jane Correia MD 9500 [place] [address] Schedule in about 3 months to remove [...] documented as of this encounter Care Teams Bark Peeler Relationship Specialty Start Date End Date Rusty Delgado II, MD 112 [facility] 110 [place] [address] PCP - General Internal Medicine 05/28/24 Irena Johnson MD [address] Willam [address] [facility] [place] [address] Referring Gastroenterology 03/12/24 Vanessa Arora MD [address] [place], [place] [address] Primary Staff Physician Cardiology 05/02/24 Carina Ziegler, RN [facility] [address] [facility] [place] [address] Registered Nurse Transplant Center 09/17/24 documented as of this encounter
--- OUTSIDE RECORDS SUMMARY | 2024-11-19 02:27 | XMS_ITS | Encounter Summary ---
Author Organization [facility] Address [address] [facility] [place] [address] Care Team Providers Care Smash Hand Name Role Phone Rusty Delgado MD Unavailable [phone] Rusty Delgado MD Primary Care Provider [phone] Encounter Details Date Type Department Care Team (Late st Contact Info) Description 03/31/2023 Abstract [facility] [place] Whitten [address] [facility] 110 [place] [phone] Rusty Delgado MD [address] [place] [facility] 110 [place], [place] [phone] Social History Tobacco Use Types Packs/Day Years [...] Visit [facility] [place] Whitten [address] [facility] 110 [place] [phone] Rusty Delgado MD [address] [place] [facility] 110 [place], [place] [phone] documented as of this encounter Visit Diagnoses Not on filedocumented in this encounter Care Teams Smash Hand Relationship Specialty Start Date End Date Rusty Delgado MD [address] [place] [facility] 110 [place] [address] PCP - Aeterin 04/17/22 Rusty Delgado MD [address] [place] [facility] 110 [place] [address] PCP - General Internal Medicine 11/23/22 documented as of this encounter
--- OUTSIDE RECORDS SUMMARY | 2024-11-19 02:28 | XMS_ITS | Encounter Summary ---
Author Organization [facility] Address [address] [place] [address] Care Team Providers Care Archivist Economic History Name Role Phone Irena Johnson MD Unavailable Vanessa Arora MD Unavailable [phone] [place] WONG MD, Rusty Gomez Primary Care Provider [phone] Carina Ziegler RN Unavailable Unavailable Source Comments In the event this information is protected by the Federal Confidentiality of Alcohol and Drug AbusePatient Records regulations: The Federal rules restrict any use of the information to criminally investigate or prosecute any alcohol or drug abuse patient.[facility] Encounter Details Date Type Department Care Team (Late st Contact Info) Description 07/07/2024 Get Medical Advice Medical Records [address] [place] [address] Yesica Bright RN Liver Transplant status Social History Tobacco Use Types Packs/Day Years [...] is lower risk 7 04/25/2024 Data from: https://www.neighborhoodatlas.medicine.[facility]/. Last address used for calculation Eugene Villanueva [...] PM EDT Office Visit Transplant Center [address] [address] KAYLIE ARELLANO 11/21/2024 5:40 PM EDT Appointment MRI Q [address] [place] [id number] Compression fracture of cervical spine, non-traumatic, with delayed healing, subsequent encounter [M48.52XG] 11/21/2024 6:20 PM EDT Appointment MRI Q [address] [address] Compression fracture of cervical spine, non-traumatic, with delayed healing, subsequent encounter [M48.52XG] 11/21/2024 7:00 PM EDT Appointment MRI Q [address] [address] Compression fracture of cervical spine, non-traumatic, with delayed healing, subsequent encounter [M48.52XG] 02/03/2025 9:00 AM EDT [facility] Neurology [address]300 [place] [address] Devyn Roach MD [address]00 [place] [address] Vertigo [R42] 02/10/2025 11:00 AM EDT Appointment Gastroenterology [address] [address] Jane Correia MD 9500 [place] [address] Schedule in about 3 months to remove [...] documented as of this encounter Care Teams Archivist Economic History Relationship Specialty Start Date End Date Rusty Delgado II, MD 112 [facility] 110 [place] [address] PCP - General Internal Medicine 05/28/24 Irena Johnson MD 3000 [facility] 1620 [place] [address] Referring Gastroenterology 03/12/24 Vanessa Arora MD [address] [place] [address] Primary Staff Physician Cardiology 05/02/24 Carina Ziegler, RN [facility] [address] [place] [address] Registered Nurse Transplant Center 09/17/24 documented as of this encounter
--- OUTSIDE RECORDS SUMMARY | 2024-11-19 02:28 | XMS_ITS | Encounter Summary ---
Author Organization [facility] Address [facility]7 [place] [address] Care Team Providers Care Making Machine Catcher Name Role Phone Irena Johnson MD Unavailable Vanessa Arora MD Unavailable [phone] [place] WONG MD, Rusty Gomez Primary Care Provider [phone] Carina Ziegler RN Unavailable Unavailable Source Comments In the event this information is protected by the Federal Confidentiality of Alcohol and Drug AbusePatient Records regulations: The Federal rules restrict any use of the information to criminally investigate or prosecute any alcohol or drug abuse patient.[facility] Encounter Details Date Type Department Care Team (Late st Contact Info) Description 07/04/2024 Patient Msg Transplant Center [address] [phone] Yesica Bright RN Lab result update Social History Tobacco Use Types Packs/Day Years [...] is lower risk 7 04/25/2024 Data from: https://www.neighborhoodatlas.medicine.[facility]/. Last address used for calculation [...] PM EDT Office Visit Transplant Center [address] [address] KAYLIE ARELLANO 11/21/2024 5:40 PM EDT Appointment MRI Q [address] [address] Compression fracture of cervical spine, non-traumatic, with delayed healing, subsequent encounter [M48.52XG] 11/21/2024 6:20 PM EDT Appointment MRI Q [address] [address] Compression fracture of cervical spine, non-traumatic, with delayed healing, subsequent encounter [M48.52XG] 11/21/2024 7:00 PM EDT Appointment MRI Q [address] [address] Compression fracture of cervical spine, non-traumatic, with delayed healing, subsequent encounter [M48.52XG] 02/03/2025 9:00 AM EDT [facility] Neurology [address]300 [place] [address] Devyn Roach MD 9500 [place] [address] Vertigo [R42] 02/10/2025 11:00 AM EDT Appointment Gastroenterology [address] [address] Jane Correia MD 9500 [place] [address] Schedule in about 3 months to remove [...] documented as of this encounter Care Teams Making Machine Catcher Relationship Specialty Start Date End Date Rusty Delgado II, MD 112 [facility] 110 [place] [address] PCP - General Internal Medicine 05/28/24 Irena Johnson MD 3000 [facility] 1620 [place] [address] Referring Gastroenterology 03/12/24 Vanessa Arora MD [address] [place], [place] 3201[address] Primary Staff Physician Cardiology 05/02/24 Carina Ziegler RN [facility] 6758 [place] [address] Registered Nurse Transplant Center 09/17/24 documented as of this encounter
--- OUTSIDE RECORDS SUMMARY | 2024-11-19 02:28 | XMS_ITS | Encounter Summary ---
Author Organization [facility] Address [address] [place] [address] Care Team Providers Care Ceramic Tile Mechanic Name Role Phone Rusty Delgado MD Unavailable [phone] Rusty Delgado MD Primary Care Provider Encounter Details Date Type Department Care Team (Late st Contact Info) Description 12/13/2023 Abstract [facility] [place] [facility] Medince [address] [facility] 110 [place] [phone] Rusty Delgado MD [address] [facility] 110 [place] [address] Social History Tobacco Use Types [...] Never 12/12/2023 How often do you attend presybeterian or uatsdin serv ices? Never 12/12/2023 Do you belong to any clubs o r organizations such as presybeterian groups, unions, fraternal or athletic groups, or [...] and heating? Not hard at all 12/12/2023 [facility] of Occupat ional Health - Occupational Stress [...] any time in the past 12 m [facility], were you homeless or living in [...] Visit [facility] [place] Whitten [address] [facility] 110 [place] [address] Rusty Delgado MD [address] [facility] 110 [place] [address] documented as of this encounter Visit Diagnoses Not on filedocumented in this encounter Care Teams Ceramic Tile Mechanic Relationship Specialty Start Date End Date Rusty Delgado MD [address] [facility] 110 [place] [address] PCP - [employer] 04/17/22 Rusty Delgado MD [address] [facility] 110 [place] [address] PCP - General Internal Medicine 11/23/22 documented as of this encounter
--- OUTSIDE RECORDS SUMMARY | 2024-11-19 02:28 | XMS_ITS | Encounter Summary ---
Author Organization [facility] Address [address] [place] [address] Care Team Providers Care Elevator Service Mechanic Name Role Phone Irena Johnson MD Unavailable Vanessa Arora MD Unavailable [phone] [place] WONG MD, Rusty Gomez Primary Care Provider [phone] Carina Ziegler RN Unavailable Unavailable Source Comments In the event this information is protected by the Federal Confidentiality of Alcohol and Drug AbusePatient Records regulations: The Federal rules restrict any use of the information to criminally investigate or prosecute any alcohol or drug abuse patient.[facility] Encounter Details Date Type Department Care Team (Late st Contact Info) Description 07/31/2024 Get Medical Advice Gastroenterology [address] [phone] Connie Garg MD [address] [place] [address] Blood Work Social History Tobacco Use Types Packs/Day Years [...] lower risk 7 04/25/2024 Data from: https://www.neighborhoodatlas.medicine.[facility]/. Last address used for calculation [...] PM EDT Office Visit Transplant Center [address] [place] [phone] KAYLIE ARELLANO 11/21/2024 5:40 PM EDT Appointment MRI Q [address] [address] Compression fracture of cervical spine, non-traumatic, with delayed healing, subsequent encounter [M48.52XG] 11/21/2024 6:20 PM EDT Appointment MRI Q [address] [address] Compression fracture of cervical spine, non-traumatic, with delayed healing, subsequent encounter [M48.52XG] 11/21/2024 7:00 PM EDT Appointment MRI Q [address] [address] Compression fracture of cervical spine, non-traumatic, with delayed healing, subsequent encounter [M48.52XG] 02/03/2025 9:00 AM EDT [facility] Neurology [address] [place] [address] Devyn Roach MD [address]00 [place] [address] Vertigo [R42] 02/10/2025 11:00 AM EDT Appointment Gastroenterology [address] [address] Jane Correia MD 9500 [place] [address] Schedule in about 3 months to remove [...] documented as of this encounter Care Teams Elevator Service Mechanic Relationship Specialty Start Date End Date Rusty Delgado II, MD 112 [facility] 110 [place] [address] PCP - General Internal Medicine 05/28/24 Irena Johnson MD [address] [place] [address] Willam 1620 [facility] [place] [address] Referring Gastroenterology 03/12/24 Vanessa Arora MD [address] [place], [place] [phone] Primary Staff Physician Cardiology 05/02/24 Carina Zeigler, RN [facility] [address] [facility] [place] [address] Registered Nurse Transplant Center 09/17/24 documented as of this encounter
--- OUTSIDE RECORDS SUMMARY | 2024-11-19 02:28 | XMS_ITS | Encounter Summary ---
Author Organization [facility] Address [address] [place] [address] Care Team Providers Care Hydraulic Press Tender Name Role Phone Rusty Delgado MD Unavailable [phone] Rusty Delgado MD Primary Care Provider Encounter Details Date Type Department Care Team (Late st Contact Info) Description 12/13/2023 Abstract [facility] [place] [facility] Medince [address] [facility] 110 [place] [phone] Rusty Delgado MD 112 [facility] 110 [place] [address] Social History Tobacco Use Types [...] How often do you attend confucianism or restorationist serv ices? Never 12/12/2023 Do you belong [...] and heating? Not hard at all 12/12/2023 [facility] of Occupat ional Health - [...] time in the past 12 m [facility], were you homeless or living in a [...] [facility] [place] Whitten [address] [facility] 110 [place] [address] Rusty Delgado MD [address] [facility] 110 [place] [address] documented as of this encounter Visit Diagnoses Not on filedocumented in this encounter Care Teams Hydraulic Press Tender Relationship Specialty Start Date End Date Rusty Delgado MD [address] [facility] 110 [place] [address] PCP - [employer] 04/17/22 Rusty Delgado MD [address] [facility] 110 [place] [address] PCP - General Internal Medicine 11/23/22 documented as of this encounter
--- OUTSIDE RECORDS SUMMARY | 2024-11-19 02:28 | XMS_ITS | Encounter Summary ---
Author Organization [facility] Address [facility] [place] [address] Care Team Providers Care Nursing Staff Development Coordinator Name Role Phone Irena Johnson MD Unavailable Vanessa Arora MD Unavailable [phone] [place] WONG MD, Rusty Gomez Primary Care Provider [phone] Carina Ziegler RN Unavailable Unavailable Source Comments In the event this information is protected by the Federal Confidentiality of Alcohol and Drug AbusePatient Records regulations: The Federal rules restrict any use of the information to criminally investigate or prosecute any alcohol or drug abuse patient.[facility] Encounter Details Date Type Department Care Team (Late st Contact Info) Description 06/19/2024 Patient Msg Transplant Center [address] [phone] Padmini Pappas, RN Follow up Social History Tobacco Use Types Packs/Day Years [...] Data from: https://www.neighborhoodatlas.medicine.[facility]/. Last address used for calculation Eugene Villanueva [...] PM EDT Office Visit Transplant Center [address] [address] KAYLIE ARELLANO 11/21/2024 5:40 PM EDT Appointment MRI Q [address] [address] Compression fracture of cervical spine, non-traumatic, with delayed healing, subsequent encounter [M48.52XG] 11/21/2024 6:20 PM EDT Appointment MRI Q [address] [address] Compression fracture of cervical spine, non-traumatic, with delayed healing, subsequent encounter [M48.52XG] 11/21/2024 7:00 PM EDT Appointment MRI Q [address] [address] Compression fracture of cervical spine, non-traumatic, with delayed healing, subsequent encounter [M48.52XG] 02/03/2025 9:00 AM EDT [facility] Neurology 9300 [place] [address] Devyn Roach MD 9500 [place] [address] Vertigo [R42] 02/10/2025 11:00 AM EDT Appointment Gastroenterology [address] [address] Jane Correia MD 9500 [place] [address] Schedule in about 3 months to remove [...] documented as of this encounter Care Teams Nursing Staff Development Coordinator Relationship Specialty Start Date End Date Rusty Delgado II, MD [address] [facility] 110 [place] [address] PCP - General Internal Medicine 05/28/24 Irena Johnson MD 3000 [facility] 1620 [place] [phone] Referring Gastroenterology 03/12/24 Vansesa Arora MD [address] [place] [address] Primary Staff Physician Cardiology 05/02/24 Carina Ziegler RN [facility] 7[address] [facility] [place] [address] Registered Nurse Transplant Center 09/17/24 documented as of this encounter
--- OUTSIDE RECORDS SUMMARY | 2024-11-19 02:28 | XMS_ITS | Encounter Summary ---
Author Organization [facility] Address [address] [place] [address] Care Team Providers Care Childbirth Educator Name Role Phone Rusty Delgado MD Unavailable [phone] Rusty Delgado MD Primary Care Provider [phone] Encounter Details Date Type Department Care Team (Late st Contact Info) Description 01/05/2024 Clinisync Result Encounter N[facility]S External Department Unsolicited [...] Never 12/12/2023 How often do you attend gnosticism or sabianist serv ices? Never 12/12/2023 Do you belong to any clubs o r organizations such as gnosticism groups, unions, fraternal or athletic groups, or [...] and heating? Not hard at all 12/12/2023 [facility] of Occupat ional Health - Occupational Stress [...] time in the past 12 m [facility], were you homeless or living in a [...] [facility] 112 [facility] 110 [place] [address] Rusty Delgado MD 112 [facility] 110 [place] [address] documented as of this encounter Procedures Procedure Name Priority Date/Time Associated Diagnosis Comments XR ABDOMEN 1V 01/05/2024 7:09 AM EDT documented in this encounter Results * XR ABDOMEN 1V (01/05/2024 7:09 AM EDT) Anatomical Region Laterality Modality Other 01/05/2024 7:09 AM EDT Narrative 01/05/2024 7:11 AM EDT The [address] [address] XRay Report Signed Patient: CHARLES BLANDON MR#: [id number] : 1955 Acct:[id number] Age/Sex: 68 / M ADM Date: 01/03/24 Loc: US Attending Dr: Non-Staff Physician Eriberto Ordering Physician: PhysicianNonMinnieStaff Eriberto Date of Service: 01/03/24 Procedure(s): XR abdomen 1V Accession Number(s): [id number] cc: RUSTY DELGADO ; Physician,Non-Staff Eriberto The [address] [address] Patient Name: CHARLES BLANDON MRN: [facility] HOME:[id number] date: 1955 Sex: M Assigned Patient Location: US Current Patient Location: Accession/Order Number: [id number] Exam Date: 01/03/2024 09:15 Report Date: 01/05/2024 07:09 At the request of: NON-STAFF PHYSICIAN Procedure: XR abdomen 1V EXAMINATION: XR abdomen 1V HISTORY: Diarrhea COMPARISON: No relevant comparison available. FINDINGS: BOWEL GAS PATTERN: No abnormal dilation or deviation. CALCIFICATIONS: None significant. OTHER: Negative. No abnormal gaseous collections. XR/XR abdomen 1V IMPRESSION: Nonobstructive bowel gas pattern Electronically authenticated by: AUTUMN FARNSWORTH Date: 01/05/2024 07:09 Dictated By: Autumn Farnsworth M.D. Signed By: 01/05/24710 DD/ 8 TD/TT: Motion Picture Printer: Procedure Note Radiology, Radiologist, MD - 01/05/2024 [place] [address] XRay Report Signed Patient: CHARLES BLANDON EMR#: [id number] : 1955cct:[id number] Age/Sex: 68 / MADM Date: 01/03/24 Loc: US Attending Dr: Non-Staff Physician Eriberto Ordering Physician: Yolanda DuarteStaff Eriberto Date of Service: 01/03/24 Procedure(s): XR abdomen 1V Accession Number(s): [id number] cc: RUSTY DELGADO ; PhysicianYolandaStaff Eriberto The [place] [address] Patient Name: CHARLES BLANDON MRN: [id number] date: 1955 Sex: M Assigned Patient Location: US Current Patient Location: Accession/Order Number: [id number] Exam Date: 01/03/2024 09:15 Report Date: 01/05/2024 07:09 At the request of: NON-STAFF PHYSICIAN Procedure: XR abdomen 1V EXAMINATION: XR abdomen 1V HISTORY: Diarrhea COMPARISON: No relevant comparison available. FINDINGS: BOWEL GAS PATTERN: No abnormal dilation or deviation. CALCIFICATIONS: None significant. OTHER: Negative. No abnormal gaseous collections. XR/XR abdomen 1V IMPRESSION: Nonobstructive bowel gas pattern Electronically authenticated by: AUTUMN FARNSWORTH Date: 01/05/2024 07:09 Dictated By: Autumn Farnsworth M.D. Signed By:01/05/2411 DD/ TD/TT: Motion Picture Printer: us Generic External Data Provider [facility] Final Result documented in this encounter Visit Diagnoses Not on filedocumented in this encounter Care Teams Childbirth Educator Relationship Specialty Start Date End Date Rusty Delgado MD 112 [facility] 110 [place] [address] PCP - [employer] 04/17/22 Rusty Delgado MD [address] [facility] 110 [place] [address] PCP - General Internal Medicine 11/23/22 documented as of this encounter
--- OUTSIDE RECORDS SUMMARY | 2024-11-19 02:28 | XMS_ITS | Encounter Summary ---
Author Organization [facility] Address [address] [place] [address] Care Team Providers Care Getter Welder Name Role Phone Rusty Delgado MD Unavailable [phone] Rusty Delgado MD Primary Care Provider [phone] Encounter Details Date Type Department Care Team (Late st Contact Info) Description 12/13/2023 Abstract [facility] [place] [facility] [address] [facility] 110 [place] [id number] Rusty Delgado MD 112 [facility] 110 [place] [address] Social History Tobacco Use Types [...] Never 12/12/2023 How often do you attend yazidi or quaker serv ices? Never 12/12/2023 Do you belong to any clubs o r organizations such as yazidi groups, unions, fraternal or athletic groups, or [...] and heating? Not hard at all 12/12/2023 [facility] of Occupat ional Health [...] any time in the past 12 m [facility], were you homeless or living in a [...] WAY [facility] 110 [place] [address] Rusty Delgado MD [address] [facility] [address] [facility] 110 [place] [address] documented as of this encounter Visit Diagnoses Not on filedocumented in this encounter Care Teams Getter Welder Relationship Specialty Start Date End Date Rusty Delgado MD [address] [facility] [address] [facility] 110 [place] [address] PCP - [employer] 04/17/22 Rusty Delgado MD [address] [facility] [address] [facility] 110 [place] [address] PCP - General Internal Medicine 11/23/22 documented as of this encounter
--- OUTSIDE RECORDS SUMMARY | 2024-11-19 02:28 | XMS_ITS | Encounter Summary ---
Author Organization [facility] Address [address] [place] [address] Care Team Providers Care Machine Ii Coremaker Name Role Phone Rusty Delgado MD Unavailable [phone] Rusty Delgado MD Primary Care Provider [phone] Encounter Details Date Type Department Care Team (Late st Contact Info) Description 01/25/2024 Clinisync Result Encounter N[facility]S External Department Unsolicited [...] Never 12/12/2023 How often do you attend buddhist or sikhism serv ices? Never 12/12/2023 Do you belong to any clubs o r organizations such as buddhist groups, unions, fraternal or athletic groups, or [...] and heating? Not hard at all 12/12/2023 [facility] [place] of Occupat ional Health - Occupational Stress [...] any time in the past 12 m [facility], were you homeless or living in a prison (including now)? No 12/12/2023 Sex and Gender [...] AM EDT Office Visit [facility] 112 [facility] 110 [place] [address] Rusty Delgado MD 112 [facility] 110 [place] [address] documented as of this encounter Procedures Procedure Name Priority Date/Time Associated Diagnosis Comments MR ABDOMEN W AND WO CONTRAST 01/25/2024 6:59 AM EDT documented in this encounter Results * MR abdomen w and wo contrast (01/25/2024 6:59 AM EDT) Anatomical Region Laterality Modality Abdomen Magnetic Resonan ce 01/25/2024 6:59 AM EDT Narrative 01/25/2024 7:01 AM EDT The [address] [address] Magnetic Resonance Report Signed Patient: CHARLES BLANDON MR#: [id number] : 1955 Acct:[id number] Age/Sex: 68 / M ADM Date: 01/24/24 Loc: MRI Attending Dr: Non-Staff Physician Eriberto Ordering Physician: PhysicianYolandaStaff Eriberto Date of Service: 01/24/24 Procedure(s): MR abdomen wo/w con Accession Number(s): [id number] cc: RUSTY DELGADO ; Physician,Non-Staff Eriberto The [address] [address] Patient Name: CHARLES BLANDON MRN: [id number] date: 1955 Sex: M Assigned Patient Location: MRI Current Patient Location: Accession/Order Number: [id number] Exam Date: 01/24/2024 13:50 Report Date: 01/25/2024 06:59 At the request of: NON-STAFF PHYSICIAN Procedure: MR abdomen wo/w con EXAMINATION: MR abdomen wo/w con HISTORY: Alcoholic cirrhosis of liver COMPARISON: CT abdomen pelvis 09/25/2023 TECHNIQUE: A comprehensive MRI examination of the abdomen was performed to optimize visualization of suspected pathology. Images were obtained with and/or without intravenous Dotarem contrast as indicated by exam type. FINDINGS: LIVER: Small heterogeneous liver with nodular margins. Subtle masslike area within posterior right hepatic lobe, 3.9 x 3.7 cm in axial plane seen only on the postcontrast images. No corresponding findings on other sequences or planes. BILIARY: Cholecystectomy. PANCREAS: No lesion, fluid collection, ductal dilatation, or atrophy. SPLEEN: No enlargement or focal lesion. KIDNEYS: No mass or obstruction. ADRENALS: No mass or enlargement. AORTA/VASCULAR: No aneurysm or dissection. RETROPERITONEUM: No mass or adenopathy. BOWEL/MESENTERY: No visible mass, obstruction, or bowel wall thickening. ABDOMINAL WALL: 6.0 cm paraumbilical hernia containing free fluid. BONES: No bony lesion or fracture. LUNG BASES: Large right pleural effusion. OTHER: Minimal residual free fluid/ascites within the abdomen. Patient underwent paracentesis immediately prior to MRI study. MR/MR abdomen wo/w con IMPRESSION: 1. Heterogeneous nodular liver compatible with cirrhosis. The patient will mass like area within posterior right hepatic lobe with likely sequela of nodular cirrhotic changes of the liver and heterogeneous enhancement of the liver. 2. Large right pleural effusion. 3. Periumbilical fluid-filled 6 cm hernia sac. Fluid is likely residual from patient's recent ascites. Electronically authenticated by: WARD STERN Date: 01/25/2024 06:59 Dictated By: Ward Stern M.D. Signed By: 01/25/24 0701 DD/ TD/TT: Claim Benefit Specialist: Procedure Note Radiology, Radiologist, - 01/25/2024 The [place] [id number] Magnetic Resonance Report Signed Patient: CHARLES BLANDON EMR#: [id number] : 1955cct:[id number] Age/Sex: 68 / MADM Date: 01/24/24 Loc: MRI Attending Dr: Non-Staff Physician Eriberto Ordering Physician: PhysicianYolandaStaff Eriberto Date of Service: 01/24/24 Procedure(s): MR abdomen wo/w con Accession Number(s): [id number] cc: RUSTY DELGADO ; Physician,Maddy Wei The [address] [address] Patient Name: CHARLES BLANDON MRN: [id number] date: 1955 Sex: M Assigned Patient Location: MRI Current Patient Location: Accession/Order Number: [id number] Exam Date: 01/24/2024 13:50 Report Date: 01/25/2024 06:59 At the request of: NON-STAFF PHYSICIAN Procedure: MR abdomen wo/w con EXAMINATION: MR abdomen wo/w con HISTORY: Alcoholic cirrhosis of liver COMPARISON: CT abdomen pelvis 09/25/2023 TECHNIQUE: A comprehensive MRI examination of the abdomen was performed to optimize visualization of suspected pathology. Images were obtained with and/or without intravenous Dotarem contrast as indicated by exam type. FINDINGS: LIVER: Small heterogeneous liver with nodular margins. Subtle masslikearea within posterior right hepatic lobe, 3.9 x 3.7 cm in axial plane seen onlyon the postcontrast images. No corresponding findings on other sequences or planes. BILIARY: Cholecystectomy. PANCREAS: No lesion, fluid collection, ductal dilatation, or atrophy. SPLEEN: No enlargement or focal lesion. KIDNEYS: No mass or obstruction. ADRENALS: No mass or enlargement. AORTA/VASCULAR: No aneurysm or dissection. RETROPERITONEUM: No mass or adenopathy. BOWEL/MESENTERY: No visible mass, obstruction, or bowel wall thickening. ABDOMINAL WALL: 6.0 cm paraumbilical hernia containing free fluid. BONES: No bony lesion or fracture. LUNG BASES: Large right pleural effusion. OTHER: Minimal residual free fluid/ascites within the abdomen. Patient underwent paracentesis immediately prior to MRI study. MR/MR abdomen wo/w con IMPRESSION: 1. Heterogeneous nodular liver compatible with cirrhosis. The patient will mass like area within posterior right hepatic lobe with likely sequela ofnodular cirrhotic changes of the liver and heterogeneous enhancement of the liver. 2. Large right pleural effusion. 3. Periumbilical fluid-filled 6 cm hernia sac. Fluid is likely residualfrom patient's recent ascites. Electronically authenticated by: WARD STERN Date: 01/25/2024 06:59 Dictated By: Ward Stern M.D. Signed By:01/25/24700 DD/ 8 TD/TT: Claim Benefit Specialist: us Generic External Data Provider IMG MRI PROCEDURE S Final Result documented in this encounter Visit Diagnoses Not on filedocumented in this encounter Care Teams Machine Ii Coremaker Relationship Specialty Start Date End Date Rusty Delgado MD 112 [facility] 110 [place] [address] PCP - [employer] 04/17/22 Rusty Delgado MD 112 [facility] 110 [place] [address] PCP - General Internal Medicine 11/23/22 documented as of this encounter
--- OUTSIDE RECORDS SUMMARY | 2024-11-19 02:28 | XMS_ITS | Encounter Summary ---
Author Organization [facility] Address [address] [place] [address] Care Team Providers Care Casing Grader Name Role Phone Irena Johnson MD Unavailable Vanessa Arora MD Unavailable [phone] [place] WONG MD, Rusty Gomez Primary Care Provider [phone] Carina Ziegler RN Unavailable Unavailable Source Comments In the event this information is protected by the Federal Confidentiality of Alcohol and Drug AbusePatient Records regulations: The Federal rules restrict any use of the information to criminally investigate or prosecute any alcohol or drug abuse patient.[facility] Reason for Visit * Reason Comments Outside Labs Results chemistry Encounter Details Date Type Department Care Team (Late st Contact Info) Description 07/02/2024 Telephone Gastroenterology [address], [place] [address] Connie Garg MD [address] [place] [address] Outside Labs Results (chemistry) Social History Tobacco Use Types Packs/Day Years [...] is lower risk 7 04/25/2024 Data from: https://www.neighborhoodatlas.[facility]/. Last address used for calculation Eugene [...] encounter Miscellaneous Notes * Telephone Encounter - Jaron Chinchilla - 07/02/2024 3:51 PM EDT The [place] Recent lab results are scanned in under external labs/chemistry Jaron Chinchilla Ac/Dc Rewinder ll documented in this encounter Plan of Treatment Upcoming Encounters Date Type Department Care Team (Late st Contact Info) Description 11/21/2024 4:00 PM EDT Office Visit Transplant Center [address] [address] [place] LASHAWN ARELLANO 11/21/2024 5:40 PM EDT Appointment MRI Q [address] [address] Compression fracture of cervical spine, non-traumatic, with delayed healing, subsequent encounter [M48.52XG] 11/21/2024 6:20 PM EDT Appointment MRI Q [address] [address] Compression fracture of cervical spine, non-traumatic, with delayed healing, subsequent encounter [M48.52XG] 11/21/2024 7:00 PM EDT Appointment MRI Q [address] [address] Compression fracture of cervical spine, non-traumatic, with delayed healing, subsequent encounter [M48.52XG] 02/03/2025 9:00 AM EDT [facility] Neurology [address] [place] [address] Devyn Roach MD [address] [place], [place] [address] Vertigo [R42] 02/10/2025 11:00 AM EDT Appointment Gastroenterology [address] [address] Jane Correia MD [address]00 [place], [place] [address] Schedule in about 3 months to remove biliary stent documented as of this encounter Goals Goal Patient Goal Type Associated Problems Recent Progress Patient-Stated? Author Blood Pressure < 130/80 Blood Pressure 122/80( 025 5:30 PM EDT) Vanessa Arriaga MD documented as of this encounter Visit [...] documented as of this encounter Care Teams Casing Grader Relationship Specialty Start Date End Date Rusty Delgado II, MD 112 [facility] 110 [place] [address] PCP - General Internal Medicine 05/28/24 Irena Johnson MD 3000 [facility] 1620 [facility] [place] [place] [phone] Referring Gastroenterology 03/12/24 Vanessa Arora MD [address] [place] [address] Primary Staff Physician Cardiology 05/02/24 Carina Ziegler RN [facility] [address] [facility] [place] [address] Registered Nurse Transplant Center 09/17/24 documented as of this encounter
--- OUTSIDE RECORDS SUMMARY | 2024-11-19 02:28 | XMS_ITS | Encounter Summary ---
Author Organization [facility] Address [address] [place] [address] Care Team Providers Care Gamemaster Name Role Phone Irena Johnson MD Unavailable Vanessa Arora MD Unavailable [phone] [place] WONG MD, Rusty Gomez Primary Care Provider [phone] Carina Ziegler RN Unavailable Unavailable Source Comments In the event this information is protected by the Federal Confidentiality of Alcohol and Drug AbusePatient Records regulations: The Federal rules restrict any use of the information to criminally investigate or prosecute any alcohol or drug abuse patient.[facility] Reason for Visit * Reason Comments Patient Update Orders New standing lab ord ers Encounter Details Date Type Department Care Team (Late st Contact Info) Description 07/31/2024 Telephone Gastroenterology [address] [place] [id number] Connie Garg MD [address] [place] [address] Patient Update; Orders (New standing lab orders) Social History Tobacco Use Types Packs/Day Years [...] is lower risk 7 04/25/2024 Data from: https://www.neighborhoodatlas.[facility]/. Last address used for calculation [...] * Telephone Encounter - Jaron Chinchilla - 07/31/2024 11:[address] new standing lab orders Jaron Chinchilla Public Relations Counselor ll documented in this encounter Plan of Treatment Upcoming Encounters Date Type Department Care Team (Late st Contact Info) Description 11/21/2024 4:00 PM EDT Office Visit Transplant Center [address] [address] [place] LASHAWN ARELLANO 11/21/2024 5:40 PM EDT Appointment MRI Q [address] [address] Compression fracture of cervical spine, non-traumatic, with delayed healing, subsequent encounter [M48.52XG] 11/21/2024 6:20 PM EDT Appointment MRI Q [address] [address] Compression fracture of cervical spine, non-traumatic, with delayed healing, subsequent encounter [M48.52XG] 11/21/2024 7:00 PM EDT Appointment MRI Q [address] [address] Compression fracture of cervical spine, non-traumatic, with delayed healing, subsequent encounter [M48.52XG] 02/03/2025 9:00 AM EDT [facility] Neurology [address] [place] [address] Devyn Roach MD [address] [place], [place] [address] Vertigo [R42] 02/10/2025 11:00 AM EDT Appointment Gastroenterology [address] [address] Jane Correia MD [address] [place], [place] [address] Schedule in about 3 months to remove [...] documented as of this encounter Care Teams Gamemaster Relationship Specialty Start Date End Date Rusty Delgado II, MD 112 [facility] 110 [place] [address] PCP - General Internal Medicine 05/28/24 Irena Johnson MD 3000 [facility] 1620 [facility] [place] [address] Referring Gastroenterology 03/12/24 Vanessa Arora MD [address] [place] [address] Primary Staff Physician Cardiology 05/02/24 Carina Ziegler RN [facility] [address] [place] [address] Registered Nurse Transplant Center 09/17/24 documented as of this encounter"
--- OUTSIDE RECORDS SUMMARY | 2024-11-19 02:28 | XMS_ITS | Encounter Summary ---
Author Organization [facility] Address [address] [place] [address] Care Team Providers Care Telephone Station Repairer Name Role Phone Rusty Delgado MD Unavailable [phone] Rusty Delgado MD Primary Care Provider Encounter Details Date Type Department Care Team (Late st Contact Info) Description 12/22/2023 Abstract [facility] [place] [facility] Medince [address] [facility] 110 [place] [address] Rusty Delgado MD 112 [facility] 110 [place] [address] Social History Tobacco Use Types [...] Never 12/12/2023 How often do you attend restorationist or anabaptism serv ices? Never 12/12/2023 Do you belong to any clubs o r organizations such as restorationist groups, unions, fraternal or athletic groups, or [...] and heating? Not hard at all 12/12/2023 [facility] of Occupat ional Health - Occupational Stress [...] any time in the past 12 m [facility], were you homeless or living [...] Visit [facility]S [place] [address] [facility] [address] [place] [address] Rusty Delgado MD [address] [facility] 110 [place] [address] documented as of this encounter Visit Diagnoses Not on filedocumented in this encounter Care Teams Telephone Station Repairer Relationship Specialty Start Date End Date Rusty Delgado MD [address] [facility] 110 [place] [address] PCP - [employer] 04/17/22 Rusty Delgado MD [address] [facility] [address] [place] [address] PCP - General Internal Medicine 11/23/22 documented as of this encounter
--- OUTSIDE RECORDS SUMMARY | 2024-11-19 02:28 | XMS_ITS | Encounter Summary ---
Author Organization [facility] Address [address] [place] [address] Care Team Providers Care Rinkman Name Role Phone Rusty Delgado MD Unavailable [phone] Rusty Delgado MD Primary Care Provider Encounter Details Date Type Department Care Team (Late st Contact Info) Description 12/13/2023 Abstract [facility] [place] [facility] Medince [address] [facility] 110 [place] [phone] Rusty Delgado MD 112 [facility] 110 [place] [address] Social History Tobacco Use Types [...] How often do you attend methodist or church serv ices? Never 12/12/2023 Do [...] and heating? Not hard at all 12/12/2023 [facility] of Occupat ional Health - Occupational Stress [...] time in the past 12 m [facility], were you homeless or living in a [...] Visit N[facility]S [place] [address] [facility] 110 [place] [address] Rusty Delgado MD [address] [facility] 110 [place] [address] documented as of this encounter Visit Diagnoses Not on filedocumented in this encounter Care Teams Rinkman Relationship Specialty Start Date End Date Rusty Delgado MD [address] [facility] [address] [place] [address] PCP - [employer] 04/17/22 Rusty Delgado MD [address] [facility] 110 [place] [address] PCP - General Internal Medicine 11/23/22 documented as of this encounter
--- OUTSIDE RECORDS SUMMARY | 2024-11-19 02:28 | XMS_ITS | Encounter Summary ---
Author Organization [facility] Address [address] [place] [address] Care Team Providers Care Emergency Medicine Name Role Phone Rusty Delgado MD Unavailable [phone] Rusty Delgado MD Primary Care Provider [phone] Encounter Details Date Type Department Care Team (Late st Contact Info) Description 12/20/2023 Clinisync Result Encounter [facility] External Department Unsolicited Faby Espino PA 112 [facility] 110 [place] [address] Social History Tobacco Use Types Packs/Day Years [...] Never 12/12/2023 How often do you attend orthodox or mandaen serv ices? Never 12/12/2023 Do you belong to any clubs o r organizations such as orthodox groups, unions, fraternal or athletic groups, or [...] and heating? Not hard at all 12/12/2023 [facility] [place] of Occupat ional Health - Occupational Stress [...] any time in the past 12 m [facility], were you homeless or living [...] Office Visit [facility] [place] 112 [facility] 110 [place] [address] Rusty Delgado MD 112 [facility] 110 [place] [address] documented as of this encounter Procedures Procedure Name Priority Date/Time Associated Diagnosis Comments CA ECHO DOPPLER COMPLETE 12/20/2023 5:20 PM EDT ELCH AFP TUMOR MARKER Routine 12/20/2023 2:36 PM EDT documented in this encounter Results * CA ECHO DOPPLER COMPLETE (12/20/2023 5:20 PM EDT) Anatomical Region Laterality Modality Other 12/20/2023 5:20 PM EDT Narrative 12/20/2023 5:21 [place] [address] Cardiology Report Signed Patient: CHARLES BLANDON MR#: [id number] : 1955 Acct:[id number] Age/Sex: 68 / M ADM Date: 12/20/23 Loc: CARD Attending Dr: FABY ESPINO Ordering Physician: FABY ESPINO Date of Service: 12/20/23 Procedure(s): CA echo doppler complete Accession Number(s): [id number] cc: RUSTY DELGADO ; FABY ESPINO Patient Name: CHARLES BLANDON MR#: [id number] : 1955 Exam Date: 12/20/2023 Ordering Doctor: DR FABY MALDONADO ECHOCARDIOGRAM REPORT PROCEDURE: CA ECHO DOPPLER COMPLETE INDICATIONS: QUESADA, Ascites, R/O valvular abnormalities or LVH COMPARISON: None. DESCRIPTION: COMPLETE ECHOCARDIOGRAM Real-time transthoracic echocardiography with 2D, M-mode, spectral and color flow Doppler performed. QUALITY: Technical quality was good. LEFT VENTRICLE: Normal chamber size. Normal left ventricular wall thickness. Normal systolic function. No wall motion abnormalities. LV EF: 65-70% DIASTOLIC: Normal ATRIAL SEPTUM: Appears intact LEFT ATRIUM: Normal chamber size RIGHT ATRIUM: Mild dilatation. RIGHT VENTRICLE: Normal chamber size. Normal right ventricular systolic function. TRICUSPID VALVE: Normal mobility and thickness. No stenosis with trivial regurgitation. No evidence of pulmonary hypertension. RVSP 31mmHg MITRAL VALVE: Normal mobility and thickness. No evidence of mitral valve stenosis. There is no mitral annular calcification. Trivial mitral regurgitation. AORTIC VALVE: Normal trileaflet appearance. Thickened aortic valve. Normal leaflet mobility. No evidence of aortic valve stenosis. No aortic regurgitation. AORTIC ROOT: Slightly dilated 3.8 cm. Normal ascendind aorta size PULMONIC VALVE: Grossly normal. No stenosis. No regurgitation. PERICARDIUM: No evidence of pericardial effusion. Ascites noted IVC: Collapes with inspirations. Normal size. PLEURA: CONCLUSION: LEFT VENTRICLE: Normal chamber size. Normal left ventricular wall thickness. Normal systolic function. No wall motion abnormalities. LVEF 65-70%.Normal diastolic function Slightly dilated aortic root 3.8 cm. Ascites noted No significant valvular abnormalities Adult Echocardiography Procedure Report Left Ventricle LVEDD (3.7 - 5.6 cm): 4.52 cm LVESD (2.2 - 4.0 cm): 3.32 cm LVIVS thickness (0.6 - 1.2 cm): 1.15 cm LVPW thickness (0.5 - 1.0 cm): 0.99 cm e': 0.08 m/s E - e': 9.12 LVOT Max Gradient: 4.84 mm[Hg], 4.99 mm[Hg] LVOT Area (cm2): 1.11 m/s Peak Velocity (LVOT): 1.10 m/s, 1.12 m/s Mean Velocity (LVOT): 0.66 m/s LVOT Diameter 1.98 cm Left Ventricular Ejection Fraction: 76.08 % Left Atrium LA Volume Index (2D A2C): 25.01 ml/m2 Left Atrium Systolic Dimension: 2.63 cm Mitral Valve MV E to A Ratio: 1.15 MV Max Gradient: MV Mean Gradient: Mitral Valve A-Wave Peak Velocity: 0.62 m/s Mitral Valve E-Wave Peak Velocity: 0.72 m/s Cardiovascular Orifice Area: Right Ventricle RV Internal Diastolic Dimension: 3.02 cm Aorta AO Root Diam: 3.81 cm Ascending Ao Diam: 3.08 cm Aortic Valve AoV Area (Peak Flex): 3.42 cm2, 3.45 cm2, 3.39 cm2 AoV Area (VTI): 3.77 cm2, 3.49 cm2, 4.08 cm2 Deceleration Alfalfa: Pressure Half-Time: Peak Velocity(Antegrade Flow): 0.98 m/s, 1.01 m/s Peak Gradient(Antegrade Flow): 3.85 mm[Hg], 4.10 mm[Hg] Mean Velocity(Antegrade Flow): 0.69 m/s, 0.65 m/s Mean Gradient(Antegrade Flow): 2.09 mm[Hg], 1.89 mm[Hg] Velocity Time Integral: 18.97 cm, 16.82 cm Tricuspid Valve Peak Velocity (Regurgitant Flow): 2.42 m/s, 2.18 m/s, 2.63 m/s Peak Velocity: Pulmonic Valve Mean Gradient: 1.18 mm[Hg], 1.02 mm[Hg], 1.78 mm[Hg] Mean Velocity: 0.51 m/s, 0.46 m/s, 0.62 m/s Peak Velocity: 0.78 m/s Peak Gradient: 2.15 mm[Hg], 1.97 mm[Hg], 3.32 mm[Hg] Right Atrium Right Atrium Systolic Pressure: 27.38 ml, 27.38 ml Dictated by: Siena Herrera MD on 12/20/2023 at 17:08 Approved by: Siena Herrera MD on 12/20/2023 at 17:20 Dictated By: Siena Herrera M.D. Signed By: 12/20/23 172 DD/ 172 TD/TT: Sane Rn: Procedure Note Radiology, Radiologist, - 12/20/2023 [facility] [place] [id number] Cardiology Report Signed Patient: CHARLES BLANDON EMR#: [id number] : 1955cct:[id number] Age/Sex: 68 / MADM Date: 12/20/23 Loc: CARD Attending Dr: FABY ESPINO Ordering Physician: FABY ESPINO Date of Service: 12/20/23 Procedure(s): CA echo doppler complete Accession Number(s): [id number] cc: RUSTY DELGADO ; FABY ESPINO Patient Name: CHARLES BLANDON MR#: [id number] : 1955 Exam Date: 12/20/2023 Ordering Doctor: DR FABY ESPINO PA ECHOCARDIOGRAM REPORT PROCEDURE: CA ECHO DOPPLER COMPLETE INDICATIONS: QUESADA, Ascites, R/O valvular abnormalities or LVH COMPARISON: None. DESCRIPTION: COMPLETE ECHOCARDIOGRAM Real-time transthoracic echocardiography with 2D, M-mode, spectral and color flow Dopplerperformed. QUALITY: Technical quality was good. LEFT VENTRICLE: Normal chamber size. Normal left ventricular wall thickness. Normal systolic function. No wall motion abnormalities. LV EF: 65-70% DIASTOLIC: Normal ATRIAL SEPTUM: Appears intact LEFT ATRIUM: Normal chamber size RIGHT ATRIUM: Mild dilatation. RIGHT VENTRICLE: Normal chamber size. Normal right ventricularsystolic function. TRICUSPID VALVE: Normal mobility and thickness. No stenosis withtrivial regurgitation. No evidence of pulmonary hypertension. RVSP 31mmHg MITRAL VALVE: Normal mobility and thickness. No evidence of mitralvalve stenosis. There is no mitral annular calcification. Trivial mitral regurgitation. AORTIC VALVE: Normal trileaflet appearance. Thickened aortic valve. Normal leaflet mobility. No evidence of aortic valve stenosis. No aortic regurgitation. AORTIC ROOT: Slightly dilated 3.8 cm. Normal ascendind aorta size PULMONIC VALVE: Grossly normal. No stenosis. No regurgitation. PERICARDIUM: No evidence of pericardial effusion. Ascites noted IVC: Collapes with inspirations. Normal size. PLEURA: CONCLUSION: LEFT VENTRICLE: Normal chamber size. Normal left ventricular wall thickness. Normal systolic function. No wall motion abnormalities. LVEF 65-70%.Normal diastolic function Slightly dilated aortic root 3.8 cm. Ascites noted No significant valvular abnormalities Adult Echocardiography Procedure Report Left Ventricle LVEDD (3.7 - 5.6 cm): 4.52 cm LVESD (2.2 - 4.0 cm): 3.32 cm LVIVS thickness (0.6 - 1.2 cm): 1.15 cm LVPW thickness (0.5 - 1.0 cm): 0.99 cm e': 0.08 m/s E - e': 9.12 LVOT Max Gradient: 4.84 mm[Hg], 4.99 mm[Hg] LVOT Area (cm2): 1.11 m/s Peak Velocity (LVOT): 1.10 m/s, 1.12 m/s Mean Velocity (LVOT): 0.66 m/s LVOT Diameter 1.98 cm Left Ventricular Ejection Fraction: 76.08 % Left Atrium LA Volume Index (2D A2C): 25.01 ml/m2 Left Atrium Systolic Dimension: 2.63 cm Mitral Valve MV E to A Ratio: 1.15 MV Max Gradient: MV Mean Gradient: Mitral Valve A-Wave Peak Velocity: 0.62 m/s Mitral Valve E-Wave Peak Velocity: 0.72 m/s Cardiovascular Orifice Area: Right Ventricle RV Internal Diastolic Dimension: 3.02 cm Aorta AO Root Diam: 3.81 cm Ascending Ao Diam: 3.08 cm Aortic Valve AoV Area (Peak Flex): 3.42 cm2, 3.45 cm2, 3.39 cm2 AoV Area (VTI): 3.77 cm2, 3.49 cm2, 4.08 cm2 Deceleration Alfalfa: Pressure Half-Time: Peak Velocity(Antegrade Flow): 0.98 m/s, 1.01 m/s Peak Gradient(Antegrade Flow): 3.85 mm[Hg], 4.10 mm[Hg] Mean Velocity(Antegrade Flow): 0.69 m/s, 0.65 m/s Mean Gradient(Antegrade Flow): 2.09 mm[Hg], 1.89 mm[Hg] Velocity Time Integral: 18.97 cm, 16.82 cm Tricuspid Valve Peak Velocity (Regurgitant Flow): 2.42 m/s, 2.18 m/s, 2.63 m/s Peak Velocity: Pulmonic Valve Mean Gradient: 1.18 mm[Hg], 1.02 mm[Hg], 1.78 mm[Hg] Mean Velocity: 0.51 m/s, 0.46 m/s, 0.62 m/s Peak Velocity: 0.78 m/s Peak Gradient: 2.15 mm[Hg], 1.97 mm[Hg], 3.32 mm[Hg] Right Atrium Right Atrium Systolic Pressure: 27.38 ml, 27.38 ml Dictated by: Siena Herrera MD on 12/20/2023 at 17:08 Approved by: Siena Herrera MD on 12/20/2023 at 17:20 Dictated By: Siena Herrera M.D. Signed By:12/20/231720 DD/ 19 TD/TT: Sane Rn: Faby MALDONADO [facility] Final Result * [facility] AFP TUMOR MARKER (12/20/2023 2:36 PM EDT) AFP, SERUM, TUMOR MARKER 2.7 0.0 - 8.4 ng/mL [facility] Comment: [employer] Electrochemiluminescence Immunoassay (ECLIA) Values obtained with different assay methods or kits cannot be used interchangeably. Results cannot be interpreted as absolute evidence of the presence or absence of malignant disease. This test is not interpretable in females. Performed at: [address] [id number] Demo Event Specialist: John Tang PhD, Phone: [phone] 12/20/2023 2:36 PM EDT 12/20/2023 2:40 PM EDT Narrative [facility] - 12/21/2023 8:13 AM EDT us Generic External Data Provider [facility] F inal Result [facility] documented in this encounter Visit Diagnoses Not on filedocumented in this encounter Care Teams Emergency Medicine Relationship Specialty Start Date End Date Rusty Delgado MD [address] [place] [address] [place] [address] PCP - [employer] 04/17/22 Rusty Delgado MD [address] [facility] [address] [place] [address] PCP - General Internal Medicine 11/23/22 documented as of this encounter
--- OUTSIDE RECORDS SUMMARY | 2024-11-19 02:28 | XMS_ITS | Encounter Summary ---
Author Organization [facility] Address [address] [place] [address] Care Team Providers Care Radio Antenna Installer Name Role Phone Irena Johnson MD Unavailable Vanessa Arora MD Unavailable [phone] Danny WONG MD, Rusty Gomez Primary Care Provider [phone] Carina Ziegler RN Unavailable Unavailable Source Comments In the event this information is protected by the Federal Confidentiality of Alcohol and Drug AbusePatient Records regulations: The Federal rules restrict any use of the information to criminally investigate or prosecute any alcohol or drug abuse patient.[facility] Encounter Details Date Type Department Care Team (Late st Contact Info) Description 07/08/2024 Patient Msg Gastroenterology [address] [id number] Connie Garg MD [address] [place] [address] Appointment Request Social History Tobacco Use Types Packs/Day [...] is lower risk 7 04/25/2024 Data from: https://www.neighborhoodatlas.medicine.[facility]/. Last address used for calculation [...] PM EDT Office Visit Transplant Center [address] [place] [id number] KAYLIE ARELLANO 11/21/2024 5:40 PM EDT Appointment MRI Q [address] [address] Compression fracture of cervical spine, non-traumatic, with delayed healing, subsequent encounter [M48.52XG] 11/21/2024 6:20 PM EDT Appointment MRI Q [address] [address] Compression fracture of cervical spine, non-traumatic, with delayed healing, subsequent encounter [M48.52XG] 11/21/2024 7:00 PM EDT Appointment MRI Q [address] [address] Compression fracture of cervical spine, non-traumatic, with delayed healing, subsequent encounter [M48.52XG] 02/03/2025 9:00 AM EDT [facility] Neurology [address] [place] [address] Devyn Roach MD [address] [place] [address] Vertigo [R42] 02/10/2025 11:00 AM EDT Appointment Gastroenterology [address] [address] Jane Correia MD [address] [place] [address] Schedule in about 3 months to remove [...] documented as of this encounter Care Teams Radio Antenna Installer Relationship Specialty Start Date End Date Rusty Delgado II, MD 112 [facility] 110 [place] [address] PCP - General Internal Medicine 05/28/24 Irena Johnson MD [address] [place] [address] [facility] [place] [address] Referring Gastroenterology 03/12/24 Vanessa Arora MD [address] [place], [place] [id number] Primary Staff Physician Cardiology 05/02/24 Carina Ziegler, RN [facility] [address] [place] [address] Registered Nurse Transplant Center 09/17/24 documented as of this encounter
--- OUTSIDE RECORDS SUMMARY | 2024-11-19 02:28 | XMS_ITS | Encounter Summary ---
Author Organization [facility] Address [address] [place] [address] Care Team Providers Care Outpatient Psychiatrist Name Role Phone Irena Johnson MD Unavailable Vanessa Arora MD Unavailable Danny WONG MD, Rusty Gomez Primary Care Provider [phone] Carina Ziegler RN Unavailable Unavailable Source Comments In the event this information is protected by the Federal Confidentiality of Alcohol and Drug AbusePatient Records regulations: The Federal rules restrict any use of the information to criminally investigate or prosecute any alcohol or drug abuse patient.[facility] Encounter Details Date Type Department Care Team (Late st Contact Info) Description 07/11/2024 Get Medical Advice Transplant Center [address] [id number] Yesica Bright RN Oncology appointment Social History Tobacco Use Types Packs/Day Years [...] is lower risk 7 04/25/2024 Data from: https://www.neighborhoodatlas.medicine.[facility]/. Last address used for calculation Eugene [...] PM EDT Office Visit Transplant Center [address] [address] KAYLIE ARELLANO 11/21/2024 5:40 PM EDT Appointment MRI Q [address] [address] Compression fracture of cervical spine, non-traumatic, with delayed healing, subsequent encounter [M48.52XG] 11/21/2024 6:20 PM EDT Appointment MRI Q [address] [address] Compression fracture of cervical spine, non-traumatic, with delayed healing, subsequent encounter [M48.52XG] 11/21/2024 7:00 PM EDT Appointment MRI Q [address] [address] Compression fracture of cervical spine, non-traumatic, with delayed healing, subsequent encounter [M48.52XG] 02/03/2025 9:00 AM EDT [facility] Neurology [address] [place] [address] Devyn Roach MD [address] [place] [address] Vertigo [R42] 02/10/2025 11:00 AM EDT Appointment Gastroenterology [address] [address] Jane Correia MD [address] [place] [address] Schedule in about 3 months to remove [...] documented as of this encounter Care Teams Outpatient Psychiatrist Relationship Specialty Start Date End Date Rusty Delgado II, MD 112 [facility] 110 [place] [address] PCP - General Internal Medicine 05/28/24 Irena Johnson MD 3000 [facility] [address] [place] [id number] Referring Gastroenterology 03/12/24 Vanessa Arora MD [address] [place] [address] Primary Staff Physician Cardiology 05/02/24 Carina Ziegler RN [facility] [address] [facility] [place] [address] Registered Nurse Transplant Center 09/17/24 documented as of this encounter
--- OUTSIDE RECORDS SUMMARY | 2024-11-19 02:28 | XMS_ITS ---
Author Organization [facility] Address [address] [place] [address] Care Team Providers Care Second Hand Name Role Phone Irena Johnson MD Unavailable Vanessa Arora MD Unavailable [phone] Clarita Delgado II, MD, Daniel B Primary Care Provider [phone] Carina Ziegler RN Unavailable Unavailable Transplant Episode Liver Recipient [facility] ([place], [place]) [facility] Organ Received: Liver Transplanted on 09/09/2024 Marked as Active Follow-up on 09/09/2024 Liver CoordinatorCarina Ziegler RN Phone: N/A Fax: N/A Email: N/A [place] Organ Diagnosis 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 History Noted Survival Infection Treatment Organism Resolved 10/20/2024 41 days Intra-abdominal infection after surgical procedure 10/20/2024 41 days 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) Donor Information Organ ABO Source Meets Risk Criteria HLA Match Mismatches Cross Match Liver Transplanted O DCD No A: B: DR: Liver Donor Serology Results Anti-CMV CMV IgG: Positive EBV IgG EBV VCA IgG: Positive Anti-HBcAb HBC Total: Negative HBsAg HBsAg: Negative HBV DNA No results on file Anti-HCV HCV: Negative Anti-HIV I/II HIV-1: Not Done HIV Ag/Ab Combo Assay: Negative Anti-HTLV I/II HTLV: Not Done RPR/VDRL RPR: Negative EBV IgM EBV VCA IgM: Negative HBsAb HBsAb: Not Done EBNA No results on file Toxoplasma Toxoplasma IgG: Negative HSV 1 No results on file HSV 2 No results on file Quantiferon TB No results on file Measles No results on file Mumps No results on file SARS CoV-2 No results on file anti-HBc No results on file Chagas No results on file WNVNAT No results on file HBV SACHI No results on file HCV SACHI HCV SACHI: Negative Strongyloides No results on file Care Team Name Role Phone Fax Email Carina Ziegler RN Liver Coordinator N/A N/A N/A Sonido Nava MD Surgeon [phone] N/A Carina Ziegler RN Registered Nurse N/A N/A N/A Charles Ibrahim MD Referring [phone] N/A Events Post-Transplant Pre-Transplant Admitted: 08/23/2024 Referred: 08/27/2024 Transplanted: 09/09/2024 Evaluation began: 5 Discharged: 09/29/2024 Committee: 08/28/2024 Center waitlisted: 5 Appointments (10/19/2024 - 12/20/2024) When With Visit Type Description 11/21/2024 TRANSPLANT Office Vst KAYLIE ARELLANO 11/25/2024 TRANSPLANT - Yahaira Boo Video Visit Com pression fracture of cervical spine, non-traumatic, with delayed healing, subsequent encounter [M48.52XG]
--- OUTSIDE RECORDS SUMMARY | 2024-11-19 02:28 | XMS_ITS | Encounter Summary ---
Author Organization [facility] Address [address] [place] [address] Care Team Providers Care Sleeping Room Cleaner Name Role Phone Irena Johnson MD Unavailable Vanessa Arora MD Unavailable [phone] Danny WONG MD, Rusty Gomez Primary Care Provider [phone] Carina Ziegler RN Unavailable Unavailable Source Comments In the event this information is protected by the Federal Confidentiality of Alcohol and Drug AbusePatient Records regulations: The Federal rules restrict any use of the information to criminally investigate or prosecute any alcohol or drug abuse patient.[facility] Reason for Visit * Reason Comments Orders Cmp order Encounter Details Date Type Department Care Team (Late st Contact Info) Description 07/02/2024 Telephone Gastroenterology [address] [address] Connie Garg MD [address] [place] [address] Orders (Cmp order) Social History Tobacco Use Types Packs/Day Years [...] Data from: https://www.neighborhoodatlas.medicine.[facility]/. Last address used for calculation Eugene [...] Telephone Encounter - Jaron Chinchilla - 07/02/2024 1:49 PM EDT Patient's current standing order for CMP is complete. Does he need to continue with getting them every week? Can fax orders to [phone] Jaron Chinchilla Floor Trader ll documented in this encounter Plan of Treatment Upcoming Encounters Date Type Department Care Team (Late st Contact Info) Description 11/21/2024 4:00 PM EDT Office Visit Transplant Center [address] [address] [place] LASHAWN ARELLANO 11/21/2024 5:40 PM EDT Appointment MRI Q [address] [address] Compression fracture of cervical spine, non-traumatic, with delayed healing, subsequent encounter [M48.52XG] 11/21/2024 6:20 PM EDT Appointment MRI Q [address] [address] Compression fracture of cervical spine, non-traumatic, with delayed healing, subsequent encounter [M48.52XG] 11/21/2024 7:00 PM EDT Appointment MRI Q [address] [address] Compression fracture of cervical spine, non-traumatic, with delayed healing, subsequent encounter [M48.52XG] 02/03/2025 9:00 AM EDT [facility] Neurology [address] [place] [address] Devyn Roach MD [address] [place] [address] Vertigo [R42] 02/10/2025 11:00 AM EDT Appointment Gastroenterology [address] [address] Jane Correia MD [address] [place] [address] Schedule in about 3 months to remove [...] documented as of this encounter Care Teams Sleeping Room Cleaner Relationship Specialty Start Date End Date Rutsy Delgado II, MD 112 [facility] [address] [place] [address] PCP - General Internal Medicine 05/28/24 Irena Johnson MD 3000 [facility] 1620 [facility] [place] [place] [address] Referring Gastroenterology 03/12/24 Vanessa Arora MD [address] [place] [address] Primary Staff Physician Cardiology 05/02/24 Carina Ziegler, RN [facility] [address] [place] [address] Registered Nurse Transplant Center 09/17/24 documented as of this encounter
--- OUTSIDE RECORDS SUMMARY | 2024-11-19 02:28 | XMS_ITS | Encounter Summary ---
Author Organization [facility] Address [address] [place] [address] Care Team Providers Care Screw Machine Tender Name Role Phone Rusty Delgado MD Unavailable [phone] Rusty Delgado MD Primary Care Provider [phone] Encounter Details Date Type Department Care Team (Late st Contact Info) Description 01/24/2024 Clinisync Result Encounter [facility] External Department Unsolicited [...] Never 12/12/2023 How often do you attend uatsdin or alevism serv ices? Never 12/12/2023 Do you belong to any clubs o r organizations such as uatsdin groups, unions, fraternal or athletic groups, or [...] and heating? Not hard at all 12/12/2023 [facility] [place] of Occupat ional Health - Occupational Stress [...] time in the past 12 m [facility], were you homeless or [...] AM EDT Office Visit [facility] 112 [facility] 110 [place] [address] Rusty Delgado MD 112 [facility] 110 [place] [address] documented as of this encounter Procedures Procedure Name Priority Date/Time Associated Diagnosis Comments US PARACENTESIS ABD W/IMAGE 01/24/2024 3:27 PM EDT documented in this encounter Results * US PARACENTESIS ABD W/IMAGE (01/24/2024 3:27 PM EDT) Anatomical Region Laterality Modality Other 01/24/2024 3:27 PM EDT Narrative 01/24/2024 3:29 PM EDT The [address] [address] Ultrasound Report Signed Patient: CHARLES BLANDON MR#: [id number] : 1955 Acct:[id number] Age/Sex: 68 / M ADM Date: 01/24/24 Loc: US Attending Dr: Non-Staff Physician Eriberto Ordering Physician: Maddy Duarte M.D. Date of Service: 01/24/24 Procedure(s): US paracentesis abd w/image Accession Number(s): [id number] cc: RUSTY DELGADO ; PhysicianNon-Staff Eriberto The [address] [address] Patient Name: CHARLES BLANDON MRN: [facility]:[id number] date: 1955 Sex: M Assigned Patient Location: US Current Patient Location: Accession/Order Number: [id number] Exam Date: 01/24/2024 13:00 Report Date: 01/24/2024 15:27 At the request of: NON-STAFF PHYSICIAN Procedure: [...] DESCRIPTION: Slightly opaque yellowish fluid. FLUID VOLUME: 4.5 L COMPLICATIONS: No immediate postprocedural locations. LABORATORY: None; therapeutic paracentesis. OTHER: Negative. US/US paracentesis abd w/image IMPRESSION: 1. Successful therapeutic paracentesis with removal of all of the intraperitoneal fluid; 4.5 L. Electronically authenticated by: WARD STERN Date: 01/24/2024 15:27 Dictated By: Ward Stern M.D. Signed By: 01/24/24 1529 DD/ 1527 TD/TT: Produce Laborer: Procedure Note Radiology, Radiologist, MD - 01/24/[address] [address] Ultrasound Report Signed Patient: CHARLES BLANDON EMR#: [id number] : 1955cct:[id number] Age/Sex: 68 / MADM Date: 01/24/24 Loc: US Attending Dr: Bryanna-Staff Physician Wei Ordering Physician: Maddy Duarte M.D. Date of Service: 01/24/24 Procedure(s): US paracentesis abd w/image Accession Number(s): [id number] cc: RUSTY DELGADO ; PhysicianMaddy M.D. The [place] [address] Patient Name: CHARLES BLANDON MRN: [facility]:[id number] date: 1955 Sex: M Assigned Patient Location: US Current Patient Location: Accession/Order Number: [id number] Exam Date: 01/24/2024 13:00 Report Date: 01/24/2024 15:27 At the request of: NON-STAFF PHYSICIAN Procedure: [...] DESCRIPTION: Slightly opaque yellowish fluid. FLUID VOLUME: 4.5 L COMPLICATIONS: No immediate postprocedural locations. LABORATORY: None; therapeutic paracentesis. OTHER: Negative. US/US paracentesis abd w/image IMPRESSION: 1. Successful therapeutic paracentesis with removal of all of the intraperitoneal fluid; 4.5 L. Electronically authenticated by: WARD STERN Date: 01/24/2024 15:27 Dictated By: Ward Stern M.D. Signed By:01/24/24 1529 DD/ 1527 TD/TT: Produce Laborer: us Generic External Data Provider [facility] Final Result documented in this encounter Visit Diagnoses Not on filedocumented in this encounter Care Teams Screw Machine Tender Relationship Specialty Start Date End Date Rusty Delgado MD [address] [facility] 110 [place] [address] PCP - [employer] 04/17/22 Rusty Delgado MD [address] [facility] 110 [place] [address] PCP - General Internal Medicine 11/23/22 documented as of this encounter
--- OUTSIDE RECORDS SUMMARY | 2024-11-19 02:28 | XMS_ITS | Encounter Summary ---
Author Organization [facility] Address [address] [place] [address] Care Team Providers Care Life Science Technical Officer Name Role Phone Irena Johnson MD Unavailable Vanessa Arora MD Unavailable [phone] [place] WONG MD, Rusty Gomez Primary Care Provider [phone] Carina Ziegler RN Unavailable Unavailable Source Comments In the event this information is protected by the Federal Confidentiality of Alcohol and Drug AbusePatient Records regulations: The Federal rules restrict any use of the information to criminally investigate or prosecute any alcohol or drug abuse patient.[facility] Encounter Details Date Type Department Care Team (Late st Contact Info) Description 06/24/2024 Get Medical Advice Transplant Center [address] [id number] Connie Garg MD [address] [place] [address] Refill of Carvedilol 3.125 mg 1 in morn, 1 at night Social History Tobacco Use Types Packs/Day Years [...] is lower risk 7 04/25/2024 Data from: https://www.neighborhoodatlas.medicine.[facility].edu/. Last address used for calculation Eugene Villanueva [...] of Assessment Author No 05/31/2024 4:27 PM eCcil Huntley RN * Do you have difficulty [...] 4:00 PM EDT Office Visit [facility] [address] [address] [place] LASHAWN JACKMANY 11/21/2024 5:40 PM EDT Appointment MRI Q [address] [address] Compression fracture of cervical spine, non-traumatic, with delayed healing, subsequent encounter [M48.52XG] 11/21/2024 6:20 PM EDT Appointment MRI Q [address] [address] Compression fracture of cervical spine, non-traumatic, with delayed healing, subsequent encounter [M48.52XG] 11/21/2024 7:00 PM EDT Appointment MRI Q [address] [address] Compression fracture of cervical spine, non-traumatic, with delayed healing, subsequent encounter [M48.52XG] 02/03/2025 9:00 AM EDT [facility] Neurology [address] [place] [id number] Devyn Roach MD [address] [place] [address] Vertigo [R42] 02/10/2025 11:00 AM EDT Appointment Gastroenterology [address] [address] Jane Correia MD [address] [place] [address] Schedule in about 3 months to remove [...] documented as of this encounter Care Teams Life Science Technical Officer Relationship Specialty Start Date End Date Rusty Delgado II, MD [address] [facility] 110 [place] [address] PCP - General Internal Medicine 05/28/24 Irena Johnson MD [address] [facility] [address] [place] [id number] Referring Gastroenterology 03/12/24 Vanessa Arora MD [address] [place] [address] Primary Staff Physician Cardiology 05/02/24 Carina Ziegler, [facility] [address] [place] [address] Registered Nurse Transplant Center 09/17/24 documented as of this encounter
--- OUTSIDE RECORDS SUMMARY | 2024-11-19 02:28 | XMS_ITS | Encounter Summary ---
Author Organization [facility] Address [address] [place] [address] Care Team Providers Care Sql Tech Name Role Phone Rusty Delgado MD Unavailable [phone] Rusty Delgado MD Primary Care Provider [phone] Encounter Details Date Type Department Care Team (Late st Contact Info) Description 01/03/2024 Clinisync Result Encounter [facility] External Department Unsolicited [...] How often do you attend zoroastrianism or hoahaoism serv ices? Never 12/12/2023 Do you belong [...] and heating? Not hard at all 12/12/2023 [facility] [place] of Occupat ional Health - Occupational Stress [...] any time in the past 12 m [facility], were you homeless or living [...] AM EDT Office Visit [facility] [address] [facility] 110 [place] [address] Rusty Delgado MD 112 [facility] 110 [place] [address] documented as of this encounter Procedures Procedure Name Priority Date/Time Associated Diagnosis Comments US PARACENTESIS ABD W/IMAGE 01/03/2024 9:39 AM EDT CH AFP TUMOR MARKER Routine 01/03/2024 7:52 AM EDT documented in this encounter Results * US PARACENTESIS ABD W/IMAGE (01/03/2024 9:39 AM EDT) Anatomical Region Laterality Modality Other 01/03/2024 9:39 AM EDT Narrative 01/03/2024 9:41 AM EDT The [place] [id number] Ultrasound Report Signed Patient: LOYD BLANDON MR#: [id number] : 1955 Acct:[id number] Age/Sex: 68 / M ADM Date: 01/03/24 Loc: US Attending Dr: Non-Staff Physician Eriberto Ordering Physician: PhysicianMaddy M.D. Date of Service: 01/03/24 Procedure(s): US paracentesis abd w/image Accession Number(s): [id number] cc: RUSTY DELGADO ; PhysicianNonMinnieStaff Eriberto The [address] [address] Patient Name: LOYD BLANDON MRN: [facility]:[id number] date: 1955 Sex: M Assigned Patient Location: US Current Patient Location: Accession/Order Number: [id number] Exam Date: 01/03/2024 08:00 Report Date: 01/03/2024 09:39 At the request of: NON-STAFF PHYSICIAN Procedure: US paracentesis abd w/image EXAMINATION: US paracentesis abd w/image HISTORY: Alcohholic Cirrhosis COMPARISON: No relevant comparison available. DESCRIPTION: Informed consent was obtained. The patient was prepped and draped in standard sterile fashion. Ultrasound-guided paracentesis was performed in the usual sterile manner using 1% Xylocaine. FINDINGS: SITE: Right lower quadrant NEEDLE: Paracentesis 8 Fr. catheter over 18 gauge needle MEDICATION: 10 cc 1% buffered lidocaine for local anesthesia FLUID DESCRIPTION: pale yellow clear fluid FLUID VOLUME: 4 L COMPLICATIONS: None LABORATORY: None OTHER: Negative. US/US paracentesis abd w/image IMPRESSION: Technically successful therapeutic paracentesis Electronically authenticated by: AUTUMN FARNSWORTH Date: 01/03/2024 09:39 Dictated By: Autumn Farnsworth M.D. Signed By: 01/03/24940 DD/ 8 TD/TT: Technical Solutions Director: Procedure Note Radiology, Radiologist, MD - 01/03/2024 [place] [address] Ultrasound Report Signed Patient: LOYD BLANDON EMR#: [id number] : 1955cct:[id number] Age/Sex: 68 / MADM Date: 01/03/24 Loc: US Attending Dr: YolandaStaff Physician Wei Ordering Physician: Maddy Duarte M.D. Date of Service: 01/03/24 Procedure(s): US paracentesis abd w/image Accession Number(s): [id number] cc: RUSTY DELGADO ; PhysicianMaddy M.D. [address] [id number] Patient Name: LOYD BLANDON MRN: [facility]:[id number] date: 1955 Sex: M Assigned Patient Location: US Current Patient Location: US Accession/Order Number: [id number] Exam Date: 01/03/2024 08:00 Report Date: 01/03/2024 09:39 At the request of: NON-STAFF PHYSICIAN Procedure: US paracentesis abd w/image EXAMINATION: US paracentesis abd w/image HISTORY: Alcohholic Cirrhosis COMPARISON: No relevant comparison available. DESCRIPTION: Informed consent was obtained. The patient was prepped anddraped in standard sterile fashion. Ultrasound-guided paracentesis was performedin the usual sterile manner using 1% Xylocaine. FINDINGS: SITE: Right lower quadrant NEEDLE: Paracentesis 8 Fr. catheter over 18 gauge needle MEDICATION: 10 cc 1% buffered lidocaine for local anesthesia FLUID DESCRIPTION: pale yellow clear fluid FLUID VOLUME: 4 L COMPLICATIONS: None LABORATORY: None OTHER: Negative. US/US paracentesis abd w/image IMPRESSION: Technically successful therapeutic paracentesis Electronically authenticated by: AUTUMN FARNSWORTH Date: 01/03/2024 09:39 Dictated By: Autumn Farnsworth M.D. Signed By:01/03/24940 DD/ 8 TD/TT: Technical Solutions Director: [employer] [facility] [employer] External Data Provider [facility] Final Result * CH AFP TUMOR MARKER (01/03/2024 7:52 AM EDT) AFP, SERUM, TUMOR MARKER 2.5 0.0 - 8.4 ng/mL [facility] Comment: [employer] Electrochemiluminescence Immunoassay (ECLIA) Values obtained with different assay methods or kits cannot be used interchangeably. Results cannot be interpreted as absolute evidence of the presence or absence of malignant disease. This test is not interpretable in females. Performed at: [address] [id number] Corn Grinder: John Tang PhD, Phone: [phone] 01/03/2024 7:52 AM EDT 01/03/2024 7:52 AM EDT Narrative REIDISYGARRICK - 01/04/2024 8:13 AM EDT us Generic External Data Provider MALLORY F inal Result MALLORY [facility] documented in this encounter Visit Diagnoses Not on filedocumented in this encounter Care Teams Sql Tech Relationship Specialty Start Date End Date Rusty Delgado MD [address] [facility] 110 [place] [address] PCP - [employer] 04/17/22 Rusty Delgado MD [address] [facility] 110 [place] [address] PCP - General Internal Medicine 11/23/22 documented as of this encounter
--- OUTSIDE RECORDS SUMMARY | 2024-11-19 02:28 | XMS_ITS | Encounter Summary ---
Author Organization [facility] Address [address] [place] [address] Care Team Providers Care Supply Chain Specialist Name Role Phone Rusty Delgado MD Unavailable [phone] Rusty Delgado MD Primary Care Provider [phone] Encounter Details Date Type Department Care Team (Late st Contact Info) Description 01/11/2024 Abstract [facility] [place] [facility] [address] [facility] 110 [place] [id number] Rusty Delgado MD [address] [facility] 110 [place] [address] Social History Tobacco Use Types [...] Never 12/12/2023 How often do you attend mormon or sikhism serv ices? Never 12/12/2023 Do you belong to any clubs o r organizations such as mormon groups, unions, fraternal or athletic groups, or [...] and heating? Not hard at all 12/12/2023 [facility] of Occupat ional Health - [...] any time in the past 12 m [facility], were you homeless or living in [...] Visit [facility] [place] [address] [facility] 110 [place] [address] Rusty Delgado MD [address] [facility] 110 [place] [address] documented as of this encounter Visit Diagnoses Not on filedocumented in this encounter Care Teams Supply Chain Specialist Relationship Specialty Start Date End Date Rusty Delgado MD [address] [facility] [address] [place] [address] PCP - [employer] 04/17/22 Rusty Delgado MD [address] [facility] [address] [place] [address] PCP - General Internal Medicine 11/23/22 documented as of this encounter
--- OUTSIDE RECORDS SUMMARY | 2024-11-19 02:29 | XMS_ITS | CCD ---
Author Organization [facility] Care Team Providers Care Transfer Man Name Role Phone MD Lex Carroll Attending Provider JUDITH Robledo Primary Care Provider Rick Ortega Unavailable JUDITH Robledo Primary Care Provider TALA Ortega Attending Provider Sanjay Rolbedo MD Unavailable Sanjay Robledo MD Primary Care Provider MD Minh Griffith Attending Provider DO Brayan Alves Attending Provider JUDITH Robledo Primary Care Provider TALA Ortega Attending Provider MD Minh Griffith Attending Provider DO Brayan Alves Attending Provider [phone] SANJAY ROBLEDO Primary Care Physician Brayan Alves H Referring Unavailable Jourdan ARRIAZA Attending Unavailable JUDITH Robledo Primary Care Provider MD Ward Stern Attending Provider [facility], DO Shepard Attending Provider [facility], DO Shepard Attending Provider [facility], DO Shepard Attending Provider JUDITH Robledo Primary Care Provider MD Ward Stern Attending Provider MD Kin Hernandez V Attending Provider [phone] Elizabeth OLIVAS, Irena Unavailable Maite OLIVAS, [place] Unavailable Danny WONG MD, Sanjay Gomez Primary Care Provider Elizabeth OLIVAS, Irena Attending Provider Sanjay Robledo II Primary Care Provider Ward Stern Admitting Unavailable Ward Stern Attending Unavailable Sanjay Robledo Primary Care Unavailable Sanjay Robledo Primary Care Unavailable Johnson, Irena Admitting Unavailable Johnson, Irena Attending Unavailable Sanjay Robledo Primary Care Unavailable Johnson, Irena Admitting Unavailable Johnson, Irena Attending Unavailable Kin Hernandez V Admitting Unavailable Kin Hernandez V Attending Unavailable Ward Stern Admitting Unavailable Ward Stern Attending Unavailable Sanjay Robledo Primary Care Unavailable Samsa - TBH, Devyn Admitting Unavailable Samsa - TBH, Devyn Attending Unavailable Sanjay Robledo Primary Care Unavailable SANJAY ROBLEDO Attending Unavailable XUAN ESPINO Attending Unavailable ISAIAS, WARD Attending Unavailable XUAN ESPINO Referring Unavailable WARD ESPARZA Referring Unavailable BENEDAISY, WARD Referring Unavailable LYNDSEY PATEL Attending Unavailable WARD ESPARZA Referring Unavailable JENN LAMAS Attending Unavailable SANJAY ROBLEDO Attending Unavailable XUAN ESPINO Attending Unavailable IRA WALKER Attending Unavailable DEVAUGHN SMITH Referring Unavailable JOHNSON, IRENA Attending Unavailable JASON MILES Referring Unavailable MILESJASON Referring Unavailable RESEARCH, GENERIC Referring Unavailable JOHNSON, IRENA Referring Unavailable JOHNSON, IRENA Admitting Unavailable JOHNSON, IRENA Attending Unavailable JOHNSON, IRENA Referring Unavailable JOHNSON, IRENA Referring Unavailable PILLO, LEE Admitting Unavailable JOHNSON, IRENA Referring Unavailable MONZON, ROSA Attending Unavailable JEAN JAQUEZ Attending Unavailable JOHNSON, IRENA Attending Unavailable MILAGRO SHEEHAN Referring Unavailable JL KENT Attending Unavailable SAFI, ASTON Referring Unavailable JOHNSON, IRENA Attending Unavailable Carina Ziegler RN Unavailable Unavailable ROBLEDO II, SANJAY B Primary Care Unavailable ROBLEDO II, SANJAY B Primary Care Unavailable ROBLEDO II, SANJAY B Primary Care Unavailable JUNNA, DMITRI Referring Unavailable ROBLEDO II, SANJAY B Primary Care Unavailable JUNNA, DMITRI Referring Unavailable ROBLEDO II, SANJAY B Primary Care Unavailable JUNNA, DMITRI Referring Unavailable ROBLEDO II, SANJAY B Primary Care Unavailable JUNNA, DMITRI Referring Unavailable JUNNA, DMITRI Referring Unavailable JUNNA, DMITRI Referring Unavailable ROBLEDO II, SANJAY B Primary Care Unavailable JENNIE NICHOLSON Attending Unavailable BRISA SEALS Attending Unavailable JUNNA, DMITRI Referring Unavailable JADE ARORA Attending Unavailable JUNNA, DMITRI Referring Unavailable ROBLEDO II, SANJAY B Primary Care Unavailable MORALES GREGG Admitting Unavailable MORALES GREGG Attending Unavailable JUNNA, DMITRI Referring Unavailable ROBLEDO II, SANJAY B Primary Care Unavailable DERRICK HARRIS Attending Unavailable JUNNA, DMITRI Referring Unavailable DAVID CRUZ Admitting Unavailable DAVID CRUZ Attending Unavailable ROBLEDO II, SANJAY B Primary Care Unavailable CALI IRVING Consulting Unavailable CRTIVELISSE SUN Attending Unavail able JUNNA, DMITRI Referring Unavailable MAHEMILYROBSON, GUILLERMO Admitting Unavailable ROBLEDO II, SANJAY B Primary Care Unavailable GAY OSORIO Attending Unavailable ROBLEDO II, SANJAY B Primary Care Unavailable CANDIDA DIAS Referring Unava ilable GERONIMO COCHRAN Admitting Unavailable TO WHITMAN Attending Unavailable ROBLEDO II, SANJAY B Primary Care Unavailable MORALES GREGG Admitting Unavailable MORALES GREGG Attending Unavailable JUNNA, DMITRI Referring Unavailable SANDRO DEE Referring Unavailable JUNNA, DMITRI Referring Unavailable BRISA BULL Attending Unavailable JUNNA, DMITRI Referring Unavailable ROBLEDO II, SANJAY B Primary Care Unavailable CHERI GUIDO Referring Unavailable ROBLEDO II, SANJAY B Primary Care Unavailable MARLEE PATRICK Admitting Unavailable MARLEE PATRICK Attending Unavailable SELF Referring Unavailable SELF Referring Unavailable HAL WEIR Attending Unavaila ble JUNNA, DMITRI Referring Unavailable JUNNA, DMITRI Referring Unavailable LOW SEE-SYDNI Admitting Unavailable LOW, SEE-SYDNI Attending Unavailable SELF Referring Unavailable ROBLEDO II, SANJAY B Primary Care Unavailable TROY FRANZ Admitting Unavailable TROY FRANZ Attending Unavailable TAIMEH, ZIAD Admitting Unavailable TAIMEH, ZIAD Attending Unavailable JUNNA, DMITRI Referring Unavailable ROBLEDO II, SANJAY B Primary Care Unavailable JUNNA, DMITRI Referring Unavailable JUNNA, DMITRI Attending Unavailable ROBLEDO II, SANJAY B Primary Care Unavailable GADRE, CHERI Referring Unavailable ROBLEDO II, SANJAY B Primary Care Unavailable JUNNA, DMIRTI Referring Unavailable ROBLEDO II, SANJAY B Primary Care Unavailable TAIMEH, ZIAD Attending Unavailable BARZILAI, BENICO Referring Unavailable BERE, DAVID Admitting Unavailable BERE, DAVID Attending Unavailable ROBLEDO II, SANJAY B Primary Care Unavailable CALI IRVING Consulting Unavailable OLLISYAHIRNICK Referring Unavailable ROBLEDO II, SANJAY B Primary Care Unavailable JANE CORREIA Attending Unavailabl e SELF Referring Unavailable ROBLEDO II, SANJAY B Primary Care Unavailable JUNNA, DMITRI Referring Unavailable SELF Referring Unavailable JUNNA, DMITRI Referring Unavailable JUNNA, DMITRI Attending Unavailable JUNNA, DMITRI Referring Unavailable JUNNA, DMITRI Referring Unavailable Allergies Allergy Classification Reported Allergen(s) Allergy Type Date of Onset Reaction(s) Facility (12 sources) Sulfamethoxazole / Trimethoprim; Translations: [SULFAMETHOXAZOLE-TRI METHOPRIM] Drug Allergy 5 Rash [facility] Work Phone: Medications Current Medications Medication Drug Class(es) Dates Sig (Normalized) Sig (Original) acetaminophen 500 mg oral tablet (20 sources) Start: 09-18-2024 End: 11-12-2024 take 1 tablet by mouth every six hours as needed acetaminophen (TYLENOL) 500 mg tablet Take 1 tablet by mouth every 6 hours as needed for pain. 60 tablet 11/12/2024 Active acyclovir 400 mg oral tablet (15 sources) Herpesvirus Nucleoside Analog DNA Polymerase Inhibitor, Herpes Simplex Virus Nucleoside Analog DNA Polymerase Inhibitor, Herpes Zoster Virus Nucleoside Analog DNA Polymerase Inhibitor Start: 09-18-2024 End: 12-17-2024 take 1 tablet by mouth twice daily in the morning acyclovir (ZOVIRAX) 400 mg tablet Take 1 tablet by mouth two times a day. 60 tablet 11/15/2024 9:11 AM EDT 11/12/2024 Active aspirin 81 mg chewable tablet (20 sources) Platelet Aggregation Inhibitor, Nonsteroidal Anti-inflammatory Drug Start: 10-31-2024 End: 11-12-2024 take 1 tablet by mouth once daily aspirin 81 mg chewable tablet Take 1 tablet by mouth once daily. 30 tablet 11 11/12/2024 Active End: 04-29-2024 take 1 tablet by mouth once daily aspirin, enteric coated (ASPIRIN, ENTERIC COATED) 81 mg EC tablet Take 81 mg by mouth once daily. 04/29/2024 Discontinued B Complex Vitamins (vitamin B complex) tablet (20 sources) Start: 08-21-2024 take 1 tablet by mouth once daily B Complex Vitamins (vitamin B complex) tablet Indications: Iron deficiency anemia, unspecified iron deficiency anemia type Take 1 tablet by mouth Daily 100 tablet 3 08/21/2024 Active benzonatate 100 mg oral capsule (12 sources) Non-narcotic Antitussive Start: 10-30-2024 take 1 capsule by mouth every eight hours as needed benzonatate (TESSALON PERLE) 100 mg capsule Take 1 capsule by mouth three times a day as needed for cough. 10/30/2024 Active 168 hr buprenorphine 0.01 mg/hr transdermal system (6 sources) Partial Opioid Agonist Start: 11-12-2024 End: 12-13-2024 apply 1 dose transdermal route every week buprenorphine (BUTRANS) 10 mcg/hour transdermal patch Indications: Compression fracture of cervical spine, non-traumatic, with delayed healing, subsequent encounter , Generalized abdominal pain Apply 1 patch as directed one time a week ( On Tuesdays) 4 patch 11/15/2024 9:11 AM EDT 11/12/2024 12/13/2024 Active calcium carbonate 1250 mg / cholecalciferol 125 unt oral tablet (20 sources) Vitamin D Start: 06-02-2023 take 1 tablet by mouth once daily Calcium Carb-Cholecalcifer ol (Calcium 500 + D) 500-3.125 MG-MCG tablet Take 1 tablet by mouth 1 (one) time each day 06/02/2023 Active take 2 tablets by mouth once vasu ly CALCIUM CARB/VIT D3/MINERALS (CALCIUM CARBONATE-VIT D3-MIN) 1,200 mgcalcium -1,000 unit chew Take 2 tablets by mouth once daily. Suspended take 2 tablets by mouth once vasu ly CALCIUM CARB/VIT D3/MINERALS (CALCIUM CARBONATE-VIT D3-MIN) 1,200 mgcalcium -1,000 unit chew Take 2 tablets by mouth once daily. Active carvedilol 3.125 mg oral tablet (20 sources) alpha-Adrenergic Connie, beta-Adrenergic Connie Start: 12-27-2023 End: 08-07-2024 take 1 tablet by mouth in the morning carvedilol (Coreg) 3.125 MG tablet Take 3.125 mg by mouth in the morning and 3.125 mg in the evening. Take with meals. 12/27/2023 Active Start: 11-27-2023 End: 12-13-2023 take 1 tablet by mouth in the morning carvedilol (Coreg) 3.125 MG tablet Take 3.125 mg by mouth in the morning and 3.125 mg in the evening. Take with meals. 11/27/2023 12/13/2023 Discontinued (Other) ciprofloxacin 500 mg oral tablet (5 sources) Quinolone Antimicrobial Start: 11-13-2024 End: 11-20-2024 take 1 tablet by mouth twice daily in the morning ciprofloxacin HCl (CIPRO) 500 mg tablet Take 1 tablet by mouth two times a day for 5 days. 10 tablet 11/15/2024 9:11 AM EDT 11/13/2024 11/20/2024 Active dicyclomine hydrochloride 20 mg oral tablet (8 sources) Anticholinergic Start: 11-10-2022 End: 05-18-2023 take 1 tablet by mouth every eight hours Dicyclomine HCl 20 MG 1 tablet Orally Three times a day for 90 days Mar, Active famotidine 20 mg oral tablet (20 sources) Histamine-2 Receptor Antagonist Start: 09-29-2024 End: 11-12-2024 take 1 tablet by mouth twice daily in the morning famotidine (PEPCID) 20 mg tablet Take 1 tablet by mouth two times a day. 60 tablet 3 11/15/2024 9:11 AM EDT 11/12/2024 Active Start: 04-12-2023 End: 06-19-2024 take 1 tablet by mouth twice daily Famotidine 40 mg tablet Discontinued 40 MG PO Twice daily 60 30 July 05, 2023 9:29am June 19, 2024 1:11pm FreeTextSi tablet Orally Twice a day; Note: Source Status: Taking; Refills: 5; Qty: 60 Tablet; Provider: Shannon Syed Start: 11-10-2022 End: 05-18-2023 take 1 tablet by mouth at bedtime famotidine (Pepcid) 20 MG tablet Take 20 mg by mouth at bedtime. 0 11/10/2022 05/18/2023 Discontinued furosemide 40 mg oral tablet (20 sources) Loop Diuretic Start: 10-31-2024 take 1 tablet by mouth once daily furosemide (LASIX) 40 mg tablet Take 1 tablet by mouth once daily. Patient should start on October 31, 2024. 90 tablet 10/31/2024 Active Start: 09-30-2024 take 1 tablet by vlad th once daily furosemide (LASIX) 20 mg tablet Take 1 tablet by mouth once daily. 09/30/2024 Suspended Start: 03-01-2024 End: 05-02-2024 take 3 tablets by mouth twice daily furosemide (LASIX) 20 mg tablet Take 60 mg by mouth two times a day. 03/01/2024 05/02/2024 Discontinued Start: 03-01-2024 take 3 tablets by mo uth once daily furosemide (LASIX) 20 mg tablet Take 60 mg by mouth once daily. 03/01/2024 Active Start: 04-12-2023 End: 07-30-2024 take 1 tablet by mouth once daily in the morning Furosemide 40 mg tablet Discontinued 40 MG PO Every morning June 02, 2023 1:00am July 30, 2024 10:26am FreeTextSi tablet Orally Once a day; Note: Source Status: Taking; Refills: 11; Provider: Shannon Syed 1 ml heparin sodium, porcine 5000 unt/ml injection (20 sources) Unfractionated Heparin, Anti-coagulant Start: 09-27-2024 inject 1 mL by subcutaneous injection every twelve hours heparin 5,000 unit/mL injection Inject 1 mL subcutaneously every 12 hours. 09/27/2024 Active ketorolac tromethamine 5 mg/ml ophthalmic solution (3 [...] 02/17/2024 Active lactulose 667 mg/ml oral solution (20 sources) Osmotic Laxative Start: 12-28-2023 End: 09-18-2024 take 10 g by mouth once daily lactulose (Enulose) 10 GM/15ML solution oral solution Take 10 g by mouth Daily 12/28/2023 Active linaclotide 0.145 mg oral capsule (6 sources) Guanylate Cyclase-C Agonist Start: 11-12-2024 take 1 capsule by mouth once daily 30 minutes before mealtime linaclotide (LINZESS) 145 mcg capsule Take 1 capsule by mouth once daily. -Take capsule on an empty stomach at least 30 minutes before a meal at the same time each day. Capsule should be swallowed whole. DO NOT chew or crush 30 capsule 2 11/12/2024 Active Magnesium (2 sources) Start: 06-19-2024 Magnesium 200 mg tablet Active 500 MG PO Daily June 19, 2024 1:00am meclizine hydrochloride 25 mg oral tablet (3 sources) Antiemetic Start: 12-13-2023 End: 12-23-2023 take 1 tablet by mouth three times daily as needed for dizziness meclizine (Antivert) 25 MG tablet Indications: Dizziness Take 1 tablet (25 mg) by mouth 3 (three) times a day as needed for dizziness for up to 10 days 30 tablet 12/13/2023 12/23/2023 Active melatonin 3 mg oral tablet (6 sources) Start: 11-12-2024 take 1 tablet by mouth once daily at bedtime melatonin 3 mg tablet Take 1 tablet by mouth daily at bedtime. 30 tablet 2 11/12/2024 Active methocarbamol 750 mg oral tablet (20 sources) Muscle Relaxant Start: 11-12-2024 take 1 tablet by mouth twice daily in the morning methocarbamol (ROBAXIN) 750 mg tablet Take 1 tablet by mouth two times a day. 60 tablet 1 11/15/2024 9:11 AM EDT 11/12/2024 Active Start: 09-27-2024 End: 11-12-2024 take 1 tablet by mouth every eight hours as needed methocarbamol (ROBAXIN) 500 mg tablet Take 1 tablet by mouth three times a day as needed (muscle spasm). 09/27/2024 11/12/2024 Discontinued midodrine hydrochloride 10 mg oral tablet (15 sources) alpha-Adrenergic Agonist Start: 11-12-2024 take 1 tablet by mouth three times daily in the morning midodrine (PROAMATINE) 10 mg tablet Take 1 tablet by mouth three times a day. 9am, 12 noon, and 6pm 90 tablet 2 11/15/2024 9:11 AM EDT 11/12/2024 Active Start: 09-27-2024 take 1 tablet by vlad th every eight hours midodrine (PROAMITINE) 5 mg tablet Take 1 tablet by mouth every 8 hours. 09/27/2024 Suspended mirtazapine 7.5 mg oral tablet (12 sources) Start: 11-12-2024 take 1 tablet by mouth once daily at bedtime Mirtazapine (REMERON) 7.5 mg tablet Take 1 tablet by mouth daily at bedtime. 30 tablet 2 11/15/2024 9:11 AM EDT 11/12/2024 Active Start: 10-30-2024 End: 11-12-2024 take 1 tablet by mouth once daily at bedtime mirtazapine (REMERON) 15 mg tablet Take 1 tablet by mouth daily at bedtime. 90 tablet 10/30/2024 11/12/2024 Discontinued Multiple Vitamins-Minerals ( Multi For Him) tablet (20 sources) Multiple Vitamin s-Minerals (Multi For Him) tablet Daily. Active Multiple Vitamin s-Minerals (Multi For Him) tablet Daily. 0 Active Multivitamin (Daily Multi-Vitamin) tablet (10 sources) Start: 06-02-2023 take 1 tablet by mouth once daily Multivitamin (Daily Multi-Vitamin) tablet Active 1 TAB PO Daily June 02, 2023 1:00am Start: 06-02-2023 take 1 tablet by vlad th once daily Multivitamin (Daily Multi-Vitamin) tablet Active 1 TAB PO Daily June 02, 2023 12:00am multivitamin tablet (20 sources) Start: 11-12-2024 take 1 tablet by mouth once daily multivitamin tablet Take 1 tablet by mouth once daily. 30 tablet 11 11/12/2024 Active End: 11-12-2024 take 1 tablet by mouth once daily multivitamin tablet Take 1 tablet by mouth once daily. 11/12/2024 Discontinued take 1 tablet by vlad th once daily multivitamin tablet Take 1 tablet by mouth once daily. Suspended take 1 tablet by vlad th once daily multivitamin tablet Take 1 tablet by mouth once daily. Active ofloxacin 3 mg/ml ophthalmic solution (2 sources) [...] directed 5 mL 1 01/18/2024 01/19/2024 Active oxyCODONE hydrochloride 5 mg oral tablet (11 sources) Opioid Agonist Start: 11-12-2024 End: 11-29-2024 take 1 tablet by mouth twice daily in the morning for pain oxyCODONE IR (ROXICODONE) 5 mg immediate release tablet Indications: Compression fracture of cervical spine, non-traumatic, with delayed healing, subsequent encounter , Generalized abdominal pain Take 1 tablet by mouth two times a day for 14 days. FOR PAIN. 28 tablet 11/15/2024 9:11 AM EDT 11/12/2024 11/29/2024 Active Start: 10-30-2024 End: 11-06-2024 take 1 tablet by mouth every six hours as needed oxyCODONE IR (ROXICODONE) 5 mg immediate release tablet Take 1 tablet by mouth every 6 hours as needed for up to 7 days. 0 10/30/2024 11/06/2024 Active Start: 09-27-2024 End: 10-04-2024 take 1 tablet by mouth every six hours as needed oxyCODONE IR (ROXICODONE) 5 mg immediate release tablet Take 1 tablet by mouth every 6 hours as needed for up to 7 days. 0 09/27/2024 10/04/2024 Active Start: 08-19-2024 End: 08-24-2024 take 1 capsule by mouth every six hours for pain oxyCODONE (Oxy-IR) 5 MG immediate release capsule Indications: Other acute postprocedural pain Take 1 capsule (5 mg) by mouth every 6 (six) hours if needed for severe pain for up to 5 days 20 capsule 08/19/2024 08/24/2024 Active pantoprazole 40 mg delayed release oral tablet (20 sources) Proton Pump Inhibitor Start: 11-12-2024 take 1 tablet by mouth once daily in the morning pantoprazole DR (PROTONIX) 40 mg tablet Take 1 tablet by mouth once daily. 30 tablet 3 11/15/2024 9:11 AM EDT 11/12/2024 Active Start: 09-27-2024 End: 11-12-2024 take 1 tablet by mouth twice daily before mealtime, then take 4 tablets by mouth in the evening pantoprazole DR (PROTONIX) 40 mg tablet Take 1 tablet by mouth two times a day before meals at 6 am and 4 pm. 09/27/2024 11/12/2024 Discontinued polyethylene glycol 3350 92895 mg powder for oral solution (12 sources) Osmotic Laxative Start: 10-31-2024 polyethylene glycol 3350 17 gram packet Take 1 packet by mouth once daily. Dissolve dose in 4 - 8 ounces of liquid and take as directed. 10/31/2024 Active polyethylene glycol 3350 901282 mg / potassium chloride 2970 mg / sodium bicarbonate 6740 mg / sodium chloride 5860 mg / sodium sulfate 24025 mg powder for oral solution (1 source) Osmotic Laxative Start: 08-12-2024 End: 08-12-2024 peg 3350-Electrolyte s (GOLYTELY) 236-22.74-6.74 -5.86 gram suspension Indications: Encounter for screening colonoscopy Take 4,000 mL by mouth one time only for 1 dose. Refer to printed prep instructions from your provider. 4000 mL 08/12/2024 08/12/2024 Active prednisoLONE acetate 10 mg/ml ophthalmic suspension (2 [...] 02/01/2024 Active rifAXIMin 550 mg oral tablet (20 sources) Rifamycin Antibacterial Start: 10-13-2023 End: 09-18-2024 take 1 tablet by mouth in the morning rifAXIMin (Xifaxan) 550 MG tablet Take 550 mg by mouth in the morning and 550 mg in the evening. 10/26/2023 Active simethicone 80 mg chewable tablet (6 sources) Start: 11-12-2024 take 1 tablet by mouth every six hours as needed simethicone, chewable (MYLICON) 80 mg chewable tablet Take 1 tablet by mouth four times a day as needed. 9am,12n, 6pm, 9pm 120 tablet 2 11/12/2024 Active sulfamethoxazole 800 mg / trimethoprim 160 mg oral tablet (20 sources) Dihydrofolate Reductase Inhibitor Antibacterial, Sulfonamide Antimicrobial Start: 09-20-2024 End: 11-12-2024 take 1 tablet by mouth once sulfamethoxazole -trimethoprim (BACTRIM DS) 800-160 mg per tablet Take 1 tablet by mouth every Monday, Monday, and Monday. 15 tablet 10 11/15/2024 9:11 AM EDT 11/13/2024 Active tacrolimus 5 mg oral capsule (20 sources) Calcineurin Inhibitor Immunosuppressant Start: 10-30-2024 End: 11-12-2024 take 1 capsule by mouth twice daily in the morning tacrolimus IR (PROGRAF) 5 mg capsule Take 1 capsule by mouth two times a day. 300 capsule 11 11/15/2024 9:11 AM EDT 11/12/2024 Active Start: 09-29-2024 take 1 capsule by mo uth twice daily tacrolimus IR (PROGRAF) 1 mg capsule Take 4 capsules by mouth two times a day. 09/29/2024 Suspended tamsulosin hydrochloride 0.4 mg oral capsule (15 sources) alpha-Adrenergic Connie Start: 11-12-2024 take 1 capsule by mouth once daily at bedtime tamsulosin (FLOMAX) 0.4 mg Take 1 capsule by mouth daily at bedtime. 30 capsule 2 11/15/2024 9:11 AM EDT 11/12/2024 Active Start: 09-29-2024 take 1 capsule by mo uth once daily at bedtime tamsulosin (FLOMAX) 0.4 mg Take 1 capsule by mouth daily at bedtime. 09/29/2024 Suspended torsemide 20 mg oral tablet (20 sources) Loop Diuretic Start: 04-29-2024 take 1 tablet by mouth once daily torsemide (Demadex) 20 MG tablet Take 20 mg by mouth Daily 04/29/2024 Active Start: 04-29-2024 End: 07-28-2024 take 3 tablets by mouth once daily torsemide (DEMADEX) 20 mg tablet Take 3 tablets by mouth once daily. 270 tablet 04/29/2024 07/25/2024 Discontinued (Course of therapy completed) traZODone hydrochloride 50 mg oral tablet (20 sources) Serotonin Reuptake Inhibitor Start: 09-27-2024 End: 11-12-2024 take 1 tablet by mouth once daily at bedtime traZODone (DESYREL) 50 mg tablet Take 1 tablet by mouth daily at bedtime. 30 tablet 2 11/15/2024 9:11 AM EDT 11/12/2024 Active ursodiol 300 mg oral capsule (12 sources) Bile Acid Start: 10-30-2024 End: 11-12-2024 take 1 capsule by mouth three times daily in the morning ursodiol (ACTIGALL) 300 mg capsule Take 1 capsule by mouth three times a day. 90 capsule 5 11/15/2024 9:11 AM EDT 11/12/2024 Active valGANciclovir 450 mg oral tablet (12 sources) Start: 10-30-2024 take 2 tablets by mouth twice daily at mealtime valGANciclovir (VALCYTE) 450 mg tablet Take 2 tablets by mouth two times a day with meals. 10/30/2024 Active Completed/Discontinued Medications Medication Drug Class(es) Dates Sig (Normalized) Sig (Original) acetaminophen 325 mg / oxyCODONE hydrochloride 5 mg oral tablet (9 sources) Opioid Agonist Start: 06-13-2023 End: 07-05-2023 take 1 tablet by mouth every six hours as needed for pain Oxycodone-Acetaminop hen (Percocet) 5-325 mg tablet Discontinued 1 TAB PO Q6H as needed for pain 11 11June 13, 2023 July 05, 2023 9:01am 20 ml albumin human, mcc 250 mg/ml injection (2 sources) Human Serum Albumin Start: 07-05-2024 End: 07-05-2024 50 g, INTRAVENOUS, at 400 mL/hr, ONCE, 1 dose, On Mon07/05/24 at 1100, Intraprocedure Start: 05-01-2024 End: 05-01-2024 37.5 g, INTRAVENOUS, at 400 mL/hr, ONCE, 1 dose, On Mon05/01/24 at 1230, Intraprocedure atropine sulfate 0.025 mg / diphenoxylate hydrochloride 2.5 mg oral tablet (20 sources) Anticholinergic, Cholinergic Muscarinic Antagonist, Antidiarrheal Start: 07-05-2023 End: 06-19-2024 take 1 tablet by mouth three times daily Diphenoxylate-Atropine 2.5-0.025 mg tablet Discontinued 1 TAB PO Three times daily July 05, 2023 12:00am June 19, 2024 1:12pm Start: 06-02-2023 End: 06-13-2023 take 1 tablet by mouth three times daily as needed for diarrhea Diphenoxylate-Atropine 2.5-0.025 mg tablet Discontinued 1 TAB PO Three times daily as needed for diarrhea June 02, 2023 1:00am June 13, 2023 [...] 0 Active baclofen 20 mg oral tablet (20 sources) gamma-Aminobutyric Acid-ergic Agonist Start: 07-05-2023 End: 06-19-2024 take 1 tablet by mouth once daily at bedtime Baclofen 20 mg tablet Discontinued 20 MG PO Daily at bedtime July 05, 2023 12:00am June 19, 2024 1:11pm baclofen (Liores al) 20 MG tablet Take by mouth 3 (three) times a day PRN Active bumetanide 2 mg oral tablet (20 sources) Loop Diuretic Start: 07-25-2024 End: 09-18-2024 take 1 tablet by mouth twice daily bumetanide (BUMEX) 2 mg tablet Take 1 tablet by mouth two times a day. 180 tablet 3 07/25/2024 09/18/2024 Discontinued calcium carbonate 500 mg chewable tablet (9 sources) Start: 09-27-2024 take 500 mg by mouth every eight hours as needed calcium carbonate (TUMS) 500 mg chew Take 1 tablet by mouth three times a day as needed. 09/27/2024 Suspended calcium-magnesium -zinc 333-133-5 MG per tablet (1 source) End: 05-18-2023 prcubmn-anisefzgg-b inc 333-133-5 MG per tablet Take 1 tablet by mouth in the morning and 1 tablet at noon and 1 tablet in the evening. Take with meals. 0 05/18/2023 Discontinued DAPTOmycin (CUBICIN) 700 mg/100 mL pgbk iv piggyback in NaCl 0.9% 100 mL (9 sources) Start: 10-30-2024 End: 11-13-2024 take 700 mg intravenously every twenty-four hours DAPTOmycin (CUBICIN) 700 mg/100 mL pgbk iv piggyback in NaCl 0.9% 100 mL Inject 100 mL intravenously every 24 hours for 14 days. 1400 mL 10/30/2024 11/13/2024 Start: 10-30-2024 End: 11-13-2024 take 700 mg intravenously every twenty-four hours DAPTOmycin (CUBICIN) 700 mg/100 mL pgbk iv piggyback in NaCl 0.9% 100 mL Inject 100 mL intravenously every 24 hours for 14 days. 1400 mL 10/30/2024 11/13/2024 Active esomeprazole 40 mg delayed release oral capsule (20 sources) Proton Pump Inhibitor Start: 06-02-2023 End: 06-19-2024 Esomeprazole Magnesium 40 mg capsule,delayed release(DR/EC) Discontinued 40 MG PO Twice daily June 02, 2023 1:00am June 19, 2024 1:12pm Free[employer] capsule 30 minutes before morning meal & 1 capsule in the evening Orally twice a day; Note: Source Status: Taking; Refills: 12; Provider: Shannon Syed Start: 09-28-2022 Esomeprazole M agnesium 40 MG 1 capsule 30 minutes before morning meal & 1 capsule in the evening Orally twice a day for 30 days 14 Sep, 2023 Active hydroCHLOROthiazide 25 mg / triamterene 37.5 mg oral capsule (20 sources) Potassium-sparing Diuretic, Thiazide Diuretic Start: 06-13-2023 End: 07-05-2023 Triamterene-Hydrochlorothiaz id 37.5-25 mg capsule Discontinued CAP June 13, 2023 1:00am July 05, 2023 9:01am Start: 06-13-2023 End: 07-05-2023 Triamterene-Hydrochlorothiaz id Discontinued CAP June 13, 2023 1:00am July 05, 2023 9:01am Start: 03-16-2023 take 1 capsule by mouth once daily in the morning as needed triamterene-hydroCHLOROthiazide (Dyazide ) 37.5-25 MG capsule TAKE 1 CAPSULE BY MOUTH EVERY MORNING NEEDED FOR LEG SWELLING 03/16/2023 Active Start: 09-19-2022 End: 06-02-2023 Triamterene-Hydrochlorothiaz id 37.5-25 mg capsule Discontinued 1 CAP PO As Directed September 19, 2022 12:00am June 02, 2023 11:15am End: 05-18-2023 take 1 tablet by mouth in the morning triamterene-hydrochlorothiazide (Maxzide -25) 37.5-25 MG tablet Take 1 tablet by mouth in the morning. 0 05/18/2023 Discontinued ibuprofen 800 mg oral tablet (12 sources) Nonsteroidal Anti-inflammatory Drug Start: 06-02-2023 End: 06-19-2024 take 1 tablet by mouth three times daily as needed for pain Ibuprofen 800 mg tablet Discontinued 800 MG PO Three times daily as needed for pain June 02, 2023 1:00am June 19, 2024 1:12pm insulin lispro 100 unt/ml injectable solution (9 sources) Insulin Analog Start: 09-29-2024 insulin lispro 100 unit/mL injection Inject 2 Units subcutaneously three times a day with meals. plus sliding scale 3 times daily with meals If Blood Glucose (mg/dL) is 111-150 Give 0 units 151-200 Give 2 unit 201-250 Give 4 units 251-300 Give 6 units 301-350 Give 8 units 351-400 Give 10 units >400 give 10units and notify provider. If blood glucose is less than 70 mg/dL implement hypoglycemia treatment orders and notify pro 09/29/2024 Suspended iv contrast (will be provided with radiology test) (9 sources) Start: 11-12-2024 End: 11-13-2024 inject 1 dose intravenously once, then inject 1 dose intravenously once iv contrast (will be provided with radiology [...] MR contrast administration guidelines link. 1 each 11/12/2024 11/13/2024 Start: 11-12-2024 End: 11-13-2024 inject 1 dose intravenously once, then inject 1 dose intravenously once iv contrast (will be provided with radiology [...] MR contrast administration guidelines link. 1 each 11/12/2024 11/13/2024 Active Start: 08-22-2024 End: 08-23-2024 inject 1 dose intravenously once, then inject 1 dose intravenously once iv contrast (will be provided with radiology [...] MR contrast administration guidelines link. 1 each 08/22/2024 08/23/2024 Active Start: 05-18-2024 End: 05-19-2024 iv contrast (will be provide d with radiology test) MRI Liver Inject, intravenously, once for 1 dose. No [...] the MR contrast administration guidelines link. 1 Each 05/18/2024 05/19/2024 Active Start: 05-18-2024 End: 05-19-2024 inject 1 dose intravenously once, then inject 1 dose intravenously once iv contrast (will be provided with radiology [...] the MR contrast administration guidelines link. 1 Each 05/18/2024 05/19/2024 Active Start: 04-23-2024 End: 04-24-2024 iv contrast (will be provide d with radiology test) Indications: Lesion of liver greater than 1 cm in diameter , Alcoholic cirrhosis of liver with ascites (HCC) , Liver transplant candidate , Metabolic dysfunction-associated steatotic liver disease (MASLD) CT LIVER W IVCON Inject, intravenously, once for 1 dose. No IV access, insert saline lock prior to the beginning of sedation, infusion, injection of imaging exam. Discontinue saline lock post exam. If Pt. has a central line or IVAD, may access for administration according to line specific nursing protocol. Once exam is complete flush line and de-access according to line specific nursing protocol in the CT contrast administration guidelines link. 1 Each 04/23/2024 04/24/2024 Active lansoprazole 30 mg delayed release oral capsule (20 sources) Proton Pump Inhibitor Start: 04-29-2024 End: 09-18-2024 take 1 capsule by mouth once daily lansoprazole (PREVACID) 30 mg capsule Take 1 capsule by mouth once daily. 04/29/2024 09/18/2024 Discontinued Start: 07-05-2023 take 1 capsule by [facility] twice daily Lansoprazole 30 mg capsule,delayed release(DR/EC) Active 30 MG PO Twice daily 60 July 05, 2023 12:00am lansoprazole (Pr evacid SoluTab) 30 MG disintegrating tablet Take 15 mg by mouth in the morning. Take before meals. Dissolve on tongue before swallowing particles; do not chew, cut, break, or swallow whole.. Active 10 ml lidocaine hydrochloride 20 mg/ml injection (3 sources) Antiarrhythmic, Amide Local Anesthetic Start: 07-05-2024 End: 07-05-2024 INTRADERMAL, X (OR/PROCEDURE) PRN, Starting on Mon07/05/24 at 0904, Until Mon07/05/24 at 0904, Intraprocedure Start: 05-31-2024 End: 06-01-2024 INTRADERMAL, X (OR/PROCEDURE ) PRN, Starting on Mon05/31/24 at 0930, Until Mon06/01/24 at 0406, Intraprocedure Start: 05-01-2024 End: 05-01-2024 INTRADERMAL, X (OR/PROCEDURE ) PRN, Starting on Mon05/01/24 at 1042, Until Mon05/01/24 at 1041, Intraprocedure lisinopril 20 mg oral tablet (20 sources) Angiotensin Converting Enzyme Inhibitor Start: 03-31-2017 End: 06-19-2024 take 1 tablet by mouth once daily in the morning Lisinopril 20 mg tablet Discontinued 20 MG PO Every morning September 19, 2022 12:00am June 19, 2024 1:11pm magnesium oxide 400 mg oral tablet (20 sources) Start: 11-12-2024 End: 11-13-2024 take 2 tablets by mouth three times daily magnesium oxide (MAG-OX) 400 mg (241.3 mg magnesium) tablet Take 2 tablets by mouth three times a day. 9am, 3pm, 9pm 180 tablet 5 11/12/2024 11/13/2024 Discontinued (Course of therapy completed) Start: 09-27-2024 End: 11-12-2024 take 1 tablet by mouth twice daily magnesium oxide (MAG-OX) 400 mg (241.3 mg magnesium) tablet Take 1 tablet by mouth two times a day. 09/27/2024 11/12/2024 Discontinued magnesium oxide (Mag-Ox) 400 MG tablet Take 500 mg by mouth in the morning. Active take 1 capsule by [facility] once daily Magnesium Oxide 500 mg cap Take 500 mg by mouth once daily. Suspended metoprolol tartrate 25 mg oral tablet (20 sources) beta-Adrenergic Connie Start: 09-19-2022 End: 06-02-2023 take 1 tablet by mouth twice daily Metoprolol Tartrate 25 mg tablet Discontinued 25 MG PO Twice daily September 19, 2022 12:00am June 02, 2023 11:11am Start: 03-31-2017 End: 04-29-2024 take 1 tablet by mouth once daily metoprolol succinate ER (TOPROL XL) 50 mg 24 hr tablet Take 1 tablet by mouth once daily. 90 tablet 03/31/2017 04/29/2024 Discontinued Metoprolol Tartr ate Active omeprazole 40 mg delayed release oral capsule (20 sources) Proton Pump Inhibitor Start: 09-21-2022 End: 06-02-2023 take 1 capsule by mouth twice daily Omeprazole 40 mg capsule,delayed release(DR/EC) Discontinued 40 MG PO Twice daily 60 September 21, 2022 12:00am June 02, 2023 11:13am Start: 03-31-2017 End: 04-29-2024 take 1 capsule by mouth once daily Omeprazole 40 mg Capsule,Delayed Release(Dr/Ec) Discontinued 40 MG PO Daily September 19, 2022 12:00am September 21, 2022 8:23am ondansetron 4 mg oral tablet (18 sources) Serotonin-3 Receptor Antagonist Start: 07-05-2023 End: 06-19-2024 take 1 tablet by mouth three times daily Ondansetron Hcl 4 mg tablet Discontinued 4 MG PO Three times daily July 05, 2023 9:32am June 19, 2024 1:12pm Start: 07-05-2023 End: 07-05-2023 take 1 tablet by mouth once daily Ondansetron Hcl 4 mg tablet Discontinued 4 MG PO Daily July 05, 2023 12:00am July 05, 2023 9:32am spironolactone 100 mg oral tablet (20 sources) Aldosterone Antagonist Start: 05-04-2024 End: 09-18-2024 take 1.5 tablets by mouth once daily spironolactone (ALDACTONE) 100 mg tablet Take 1.5 tablets by mouth once daily. 45 tablet 2 05/04/2024 09/18/2024 Discontinued Start: 04-29-2024 take 1 tablet by lvad th once daily spironolactone (Aldactone) 50 MG tablet Take 50 mg by mouth Daily 04/29/2024 Active Start: 04-29-2024 End: 07-28-2024 take 2 tablets by mouth once daily spironolactone (ALDACTONE) 100 mg tablet Take 2 tablets by mouth once daily. 180 tablet 04/29/2024 05/04/2024 Discontinued Start: 03-01-2024 End: 05-04-2024 take 3 tablets by mouth once daily spironolactone (ALDACTONE) 50 mg tablet Take 150 mg by mouth once daily. 03/01/2024 05/04/2024 Discontinued Start: 04-12-2023 take 1 tablet by vlad th once daily spironolactone (Aldactone) 100 MG tablet TAKE 1 TABLET BY MOUTH EVERY DAY FOR 30 DAYS 05/10/2023 Active zolpidem tartrate 10 mg oral tablet (11 sources) gamma-Aminobutyric Acid-ergic Agonist Start: 02-13-2017 End: 04-29-2024 take 5 mg by mouth every twenty-four hours as needed zolpidem (AMBIEN) 10 mg tab Take 0.5 tablets by mouth at bedtime as needed. 30 tablet 02/13/2017 04/29/2024 Discontinued Problems Active Problems Problem Classification Problem Date Documented Da te Episodic/Chronic Abdominal pain (4 sources) Lower abdominal pain, unspecified; Translations: [Generalized abdominal pain] Onset: 4 Episodic Acute and unspecified renal failure (20 sources) Acute kidney failure, unspecified; Translations: [Acute renal failure syndrome] Onset: 4 Resolved: 5 Episodic Acute posthemorrhagic anemia (20 sources) Acute posthemorrhagic anemia; Translations: [Acute posthemorrhagic anemia] Onset: 5 09-09-2024 Episodic Alcohol-related disorders (20 sources) Alcoholic cirrhosis; Translations: [Alcoholic cirrhosis of liver with ascites] Onset: 4 12-13-2023 Chronic Aortic; peripheral; and visceral artery aneurysms (20 sources) Aortic root dilatation; Translations: [Thoracic aortic ectasia] Onset: 4 12-21-2023 Chronic Bacterial infection; unspecified site (18 sources) Infection due to vancomycin resistant enterococcus; Translations: [Streptococcal infection, unspecified site] Onset: 5 10-20-2024 Episodic Biliary tract disease (3 sources) Stricture of bile duct; Translations: [Obstruction of bile duct] Onset: 5 11-13-2024 Chronic Biliary tract disease (1 source) Calculus of bile duct without cholangitis or cholecystitis without obstruction; Translations: [Biliary stone of transplanted liver (HCC)] Onset: 5 Episodic Cancer of liver and intrahepatic bile duct (20 sources) Liver cell carcinoma; Translations: [Liver cell carcinoma] Onset: 5 07-25-2024 Chronic Cardiac dysrhythmias (20 sources) Multiple premature ventricular complexes; Translations: [Ventricular premature depolarization] Onset: 8 12-13-2023 Chronic Cataract (20 sources) Nuclear senile cataract; Translations: [Age-related nuclear cataract, bilateral] Onset: 3 11-17-2022 Chronic Chronic kidney disease (20 sources) Chronic kidney disease stage 3A ; Translations: [Stage 3a chronic kidney disease] Onset: 5 08-27-2024 Chronic Coagulation and hemorrhagic disorders (20 sources) Thrombocytopenic disorder; Translations: [Thrombocytopenia, unspecified] Onset: 3 11-17-2022 Chronic Complication of device; implant or graft (20 sources) Complication of transplanted liver; Translations: [Unspecified complication of liver transplant] Onset: 5 09-13-2024 Episodic Complications of surgical procedures or medical care (20 sources) Pulmonary insufficiency following surgery; Translations: [Other postprocedural complications and disorders of respiratory system, not elsewhere classified] Onset: 5 Resolved: 5 09-09-2024 Episodic Conditions associated with dizziness or vertigo (20 sources) Dizziness; Translations: [Dizziness and giddiness] Onset: 9 12-13-2023 Episodic Coronary atherosclerosis and other heart disease (1 source) Coronary arteriosclerosis; Translations: [Atherosclerotic heart disease of [place] coronary artery without angina pectoris] 05-31-2024 Chronic Deficiency and other anemia (17 sources) Anemia due to multiple mechanisms; Translations: [Other specified anemias] Onset: 5 10-08-2024 Episodic Diabetes mellitus with complications (20 sources) Hyperglycemia due to type 2 diabetes mellitus; Translations: [Type 2 diabetes mellitus with hyperglycemia] Onset: 9 08-19-2024 Chronic Diabetes mellitus without complication (20 sources) Type 2 diabetes mellitus without complication; Translations: [Type 2 diabetes mellitus without complications] Onset: 3 Resolved: 4 11-17-2022 Chronic Diabetes mellitus without complication (20 sources) Steroid-induced hyperglycemia; Translations: [Hyperglycemia, unspecified] Onset: 5 09-18-2024 Episodic Disorders of lipid metabolism (20 sources) Dyslipidemia; Translations: [Hyperlipidemia, unspecified] Onset: 3 11-17-2022 Chronic Esophageal disorders (20 sources) Recinos's esophagus; Translations: [Reicnos's esophagus without dysplasia] Onset: 3 Chronic Essential hypertension (20 sources) Benign essential hypertension; Translations: [Essential (primary) hypertension] Onset: 3 Resolved: 4 11-17-2022 Chronic Fluid and electrolyte disorders (20 sources) Hypo-osmolality and hyponatremia; Translations: [Hyponatremia] Onset: 4 Episodic Gout and other crystal arthropathies (20 sources) Primary gout; Translations: [Idiopathic gout, unspecified site] Onset: 9 08-19-2024 Chronic Hepatitis (20 sources) Nonalcoholic steatohepatitis; Translations: [Nonalcoholic steatohepatitis ([place])] Onset: 4 08-19-2024 Chronic Immunity disorders (20 sources) Immunosuppression; Translations: [Immunodeficiency, unspecified] Onset: 5 09-16-2024 Chronic Intestinal obstruction without hernia (20 sources) Intestinal obstruction co-occurrent and due to decreased peristalsis; Translations: [Ileus, unspecified] Onset: 5 09-22-2024 Episodic Malaise and fatigue (20 sources) Physical deconditioning; Translations: [Other malaise] Onset: 5 09-25-2024 Episodic Nausea and vomiting (20 sources) Nausea; Translations: [Nausea] Onset: 4 Episodic Nutritional deficiencies (20 sources) Deficiency of macronutrients; Translations: [Unspecified severe protein-calorie malnutrition] Onset: 5 04-29-2024 Chronic Osteoporosis (20 sources) Osteoporosis; Translations: [Age-related osteoporosis without current pathological fracture] Onset: 3 03-21-2023 Chronic Other aftercare (20 sources) Insulin dose changed; Translations: [exterminator helper (current) use of insulin] Onset: 5 09-21-2024 Episodic Other and unspecified benign neoplasm (20 sources) History of polyp of colon; Translations: [Personal history of colonic polyps] Onset: 3 03-21-2023 Episodic Other and unspecified benign neoplasm (20 sources) Polyp of colon; Translations: [Polyp of colon] Onset: 5 08-31-2024 Episodic Other disorders of stomach and duodenum (9 sources) Disorder of function of stomach; Translations: [Disease of stomach and duodenum, unspecified] 07-05-2023 Episodic Other disorders of stomach and duodenum (1 source) Disease of stomach and duodenum, unspecified; Translations: [Dyspepsia and other specified disorders of function of stomach] 07-05-2023 Episodic Other eye disorders (20 sources) 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; 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, left eye] Onset: 3 11-17-2022 Chronic Other fractures (4 sources) Compression fracture of cervical spine; Translations: [Collapsed vertebra, not elsewhere classified, cervical region, subsequent encounter for fracture with delayed healing] 11-12-2024 Episodic Other gastrointestinal disorders (9 sources) H/O: gastrointestinal disease; Translations: [Personal history of other diseases of the digestive system] Episodic Other gastrointestinal disorders (6 sources) Flatulence, eructation and gas pain; Translations: [Abdominal distension (gaseous)] Episodic Other gastrointestinal disorders (6 sources) Loose stool; Translations: [Other fecal abnormalities] Episodic Other gastrointestinal disorders (1 source) Abdominal distension (gaseous) Episodic Other liver diseases (20 sources) Steatosis of liver; Translations: [Fatty (change of) liver, not elsewhere classified] Onset: 3 11-17-2022 Chronic Other liver diseases (2 sources) Fatty (change of) liver, not elsewhere classified; Translations: [Metabolic dysfunction-associated steatotic liver disease (MASLD)] Onset: 5 Chronic Other liver diseases (20 sources) Cirrhosis of liver; Translations: [Unspecified cirrhosis of liver] Onset: 4 07-05-2023 Chronic Other liver diseases (9 sources) Unspecified cirrhosis of liver; Translations: [Cirrhosis of liver without mention of alcohol] Onset: 4 Chronic Other liver diseases (10 sources) Pleural effusion associated with hepatic disorder; Translations: [Liver disease, unspecified] 04-23-2024 Chronic Other liver diseases (10 sources) Lesion of liver; Translations: [Liver disease, unspecified] 04-23-2024 Chronic Other liver diseases (20 sources) Portal hypertension; Translations: [Portal hypertension] Onset: 5 05-08-2024 Chronic Other liver diseases (4 sources) Liver disease, unspecified; Translations: [Liver disease, unspecified] Onset: 4 Chronic Other liver diseases (1 source) Portal cirrhosis 08-27-2024 Chronic Other liver diseases (1 source) Liver transplant status; Translations: [Status post liver transplant (HCC)] Onset: 5 Chronic Other liver diseases (20 sources) Hepatic encephalopathy; Translations: [Hepatic encephalopathy (HCC)] Onset: 4 05-08-2024 Episodic Other liver diseases (1 source) Liver mass; Translations: [Hepatomegaly, not elsewhere classified] 05-18-2024 Episodic Other liver diseases (20 sources) Decompensated cirrhosis of liver; Translations: [Hepatic failure, unspecified without coma] Onset: 5 08-26-2024 Episodic Other liver diseases (1 source) Hepatic failure, unspecified without coma; Translations: [Decompensated cirrhosis (HCC)] Onset: 5 Episodic Other lower respiratory disease (20 sources) Dyspnea; Translations: [Shortness of breath] Onset: 4 04-23-2024 Episodic Other nervous system disorders (2 sources) Acute postoperative pain; Translations: [Other acute postprocedural pain] 08-19-2024 Episodic Other nervous system disorders (20 sources) Postoperative pain ; Translations: [Other acute postprocedural pain] Onset: 5 09-16-2024 Episodic Other nutritional; endocrine; and metabolic disorders (20 sources) Metabolic syndrome X; Translations: [Metabolic syndrome] Onset: 3 11-17-2022 Chronic Other nutritional; endocrine; and metabolic disorders (20 sources) Obese class I; Translations: [Class 1 obesity] Onset: 9 08-19-2024 Chronic Other screening for suspected conditions (not mental disorders or infectious disease) (3 sources) Abnormal radionuclide scan 08-22-2024 Chronic Pleurisy; pneumothorax; pulmonary collapse (20 sources) Pleural effusion; Translations: [Pleural effusion, not elsewhere classified] Onset: 4 08-19-2024 Episodic Residual codes; unclassified (20 sources) Awaiting transplantation of liver; Translations: [Awaiting organ transplant status] 04-23-2024 Chronic Residual codes; unclassified (1 source) Awaiting transplantation; Translations: [Awaiting organ transplant status] 04-29-2024 Chronic Residual codes; unclassified (1 source) Awaiting organ transplant status; Translations: [Liver transplant candidate] Onset: Chronic Residual codes; unclassified (6 sources) Edema; Translations: [Localized edema] Episodic Residual codes; unclassified (6 sources) Early satiety; Translations: [Early satiety] Episodic Residual codes; unclassified (1 source) Localized edema Episodic Residual codes; unclassified (2 sources) Early satiety Episodic Residual codes; unclassified (20 sources) H/O: endocrine disorder; Translations: [Personal history of other specified conditions] Onset: 5 09-18-2024 Episodic Retinal detachments; defects; vascular occlusion; and retinopathy (20 sources) Epiretinal membrane; 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, bilateral] Onset: 3 11-17-2022 Chronic Secondary malignancies (1 source) Secondary malignant neoplasm of bone; Translations: [Secondary malignant neoplasm of bone and bone marrow] 07-07-2024 Chronic Secondary malignancies (2 sources) Secondary malignant neoplastic disease; Translations: [Secondary malignant neoplasm of unspecified site] 07-12-2024 Chronic Spondylosis; intervertebral disc disorders; other back problems (20 sources) Low back pain; Translations: [Low back pain, unspecified back pain laterality, unspecified chronicity, unspecified whether sciatica present] Onset: 5 05-18-2024 Episodic Unclassified (1 source) 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) 07-07-2024 Unclassified (18 sources) Colonoscopy Pipe Fitter Onset: 5 08-14-2024 Unclassified (1 source) Low back pain, unspecified back pain laterality, unspecified chronicity, unspecified whether sciatica present; Translations: [Low back pain, unspecified back pain laterality, unspecified chronicity, unspecified whether sciatica present] Onset: Viral infection (16 sources) Cytomegalovirus infection; Translations: [Cytomegaloviral disease, unspecified] Onset: 5 10-09-2024 Episodic Past or Other Problems Problem Classification Problem Date Documented Da te Episodic/Chronic Abdominal hernia (20 sources) Incisional hernia; Translations: [Incisional hernia without obstruction or gangrene] Onset: 12-06-2012 03-21-2023 Episodic Administrative/social admission (20 sources) Drug therapy finding; Translations: [Other specified counseling] Onset: 04-30-2024 04-30-2024 Episodic Anal and rectal conditions (20 sources) Anal fissure; Translations: [Anal fissure, unspecified] Onset: 05-18-2023 05-18-2023 Episodic Hemorrhoids (20 sources) Internal hemorrhoids grade II; Translations: [Second degree hemorrhoids] Onset: 06-22-2023 06-13-2023 Episodic Immunizations and screening for infectious disease (2 sources) Vaccination needed; Translations: [Encounter for immunization] Onset: 05-02-2024 05-02-2024 Episodic Other connective tissue disease (20 sources) Muscle pain; Translations: [Myalgia, unspecified site] Onset: 03-16-2023 03-16-2023 Episodic Other connective tissue disease (20 sources) Olecranon bursitis; Translations: [Olecranon bursitis, unspecified elbow] Onset: 11-06-2018 08-19-2024 Episodic Other gastrointestinal disorders (3 sources) Diarrhea, unspecified; Translations: [Diarrhea, unspecified] Onset: 12-27-2023 Episodic Other gastrointestinal disorders (20 sources) Ascites; Translations: [Other ascites] Onset: 12-13-2023 12-13-2023 Episodic Other gastrointestinal disorders (2 sources) Swollen abdomen; Translations: [Abdominal distension (gaseous)] 12-13-2023 Episodic Other gastrointestinal disorders (2 sources) Other ascites; Translations: [Other ascites] Onset: 08-03-2023 Episodic Other gastrointestinal disorders (17 sources) Diarrhea; Translations: [Diarrhea, unspecified] Onset: 10-08-2024 Resolved: 10-20-2024 10-08-2024 Episodic Other lower respiratory disease (20 sources) Dyspnea on exertion; Translations: [Other forms of dyspnea] Onset: 12-13-2023 12-13-2023 Episodic Other lower respiratory disease (2 sources) Shortness of breath; Translations: [Shortness of breath] Onset: 03-08-2024 Episodic Other lower respiratory disease (2 sources) Other forms of dyspnea; Translations: [Other forms of dyspnea] Onset: 02-15-2024 Episodic Other lower respiratory disease (16 sources) Chest pain on breathing; Translations: [Chest pain on breathing] Onset: 10-15-2024 Resolved: 10-25-2024 10-15-2024 Episodic Other lower respiratory disease (1 source) Dyspnea, unspecified; Translations: [Dyspnea, unspecified type] Onset: 05-23-2024 Episodic Other non-epithelial cancer of skin (20 sources) Basal cell carcinoma of skin; Translations: [Basal cell carcinoma of skin, unspecified] Onset: 06-27-2017 08-30-2023 Episodic Other nutritional; endocrine; and metabolic disorders (20 sources) Abnormal weight loss; Translations: [Abnormal weight loss] Onset: 07-18-2023 07-18-2023 Episodic Other screening for suspected conditions (not mental disorders or infectious disease) (8 sources) Patient encounter status; Translations: [Encounter for screening for malignant neoplasm of prostate] Onset: 04-29-2024 04-23-2024 Episodic Other upper respiratory disease (1 source) Other diseases of bronchus, not elsewhere classified; Translations: [Bronchiolar disease] Onset: 05-30-2024 Episodic Pathological fracture (4 sources) Pathological fracture; Translations: [Pathological fracture, other site, initial encounter for fracture] Onset: 07-05-2024 06-10-2024 Episodic Residual codes; unclassified (20 sources) Insomnia; Translations: [Insomnia, unspecified] Onset: 11-17-2022 11-17-2022 Episodic Residual codes; unclassified (20 sources) Transient alteration of awareness; Translations: [Transient alteration of awareness] Onset: 07-18-2023 07-18-2023 Episodic Screening and history of mental health and substance abuse codes (20 sources) Tobacco use and exposure - finding; Translations: [Personal history of nicotine dependence] Onset: 03-08-2024 08-19-2024 Episodic Unclassified (1 source) Patient encounter status 08-12-2024 Unclassified (1 source) Awaiting transplantation of liver 09-02-2024 Results Test Name Value Interpretation Reference Range Facility CBC W Auto Differential pane l (Bld)Ordered By: Letitia Conway on 11-15-2024 Anisocytosis Ql (Bld) Present [facility] Basophils (Bld) [#/Vol] 0.12 10*3/uL High [facility] Basophils/100 WBC (Bld) 5 % [facility] Differential cell count method Nom (Bld) Manual [facility] Eosinophils (Bld) [#/Vol] 0.07 10*3/uL [facility] Eosinophils/100 WBC (Bld) 3 % [facility] Erythrocyte distribution width (RBC) [Ratio] 19.2 % High 11.5 - 15.0 % [facility] Hematocrit (Bld) [Volume fraction] 25.4 % Low 39.0 - 51.0 % [facility] Hemoglobin (Bld) [Mass/Vol] 7.8 g/dL Low 13.0 - 17.0 g/dL [facility] Interpretation and review of laboratory results Abnormal [facility] Lymphocytes (Bld) [#/Vol] 0.42 10*3/uL Low [facility] Lymphocytes/100 WBC (Bld) 17 % [facility] MCH (RBC) [Entitic mass] 30.4 pg 26.0 - 34.0 pg [facility] MCHC (RBC) [Mass/Vol] 30.7 g/dL 30.5 - 36.0 g/dL [facility] MCV (RBC) [Entitic vol] 98.8 fL 80.0 - 100.0 fL [facility] [place] % 5 % [facility] Monocytes (Bld) [#/Vol] 0.05 10*3/uL [facility] Monocytes/100 WBC (Bld) 2 % [facility] Myelo % 2 % [facility] Neutrophils (Bld) [#/Vol] 1.62 10*3/uL [facility] Neutrophils/100 WBC (Bld) 66 % [facility] Nucleated RBC (Bld) [#/Vol] 0.02 10*3/uL High NINF [facility] Nucleated RBC/100 WBC (Bld) [Ratio] 1 % /100 WBC [facility] Ovalocytes LM Ql (Bld) Few Cl [facility] Platelet mean volume (Bld) [Entitic vol] 9 fL 9.0 - 12.7 fL [facility] Platelets (Bld) [#/Vol] 583 10*3/uL High [facility] Platelets Estimate (Bld) [#/Vol] Increased [facility] Polychromasia LM Ql (Bld) Slight [facility] RBC (Bld) [#/Vol] 2.57 10*6/uL Low 4.20 - 6.00 m/uL [facility] Red Cell Morph Reviewed: see result s of individual morphologies [facility] WBC (Bld) [#/Vol] 2.45 10*3/uL Low [facility] WBC Left Shift Ql (Bld) Present [facility] This is an appended report. These results have been appended to a previously verified report. [facility] CBC W Auto Differential pane l (Bld)on 11-15-2024 Anisocytosis Ql (Bld) Present Normal [facility] Comment on above: Order Comment: Speci men Type: BLOOD SPECIMENOrdering Facility: [facility] Address: [address] [place] [address] Performed By: #### 5 7021-8 ####KARINA LABORATORYCLIA [id number] [place] [address] [place] [facility] LABCLIA [id number] [place] [address] [place] Basophils (Bld) [#/Vol] 0.12 10*3/uL High <0.11 [facility] Comment on above: Order Comment: Speci men Type: BLOOD SPECIMENOrdering Facility: [facility] Address: [address] [place], [place] [address] Performed By: #### 5 7021-8 ####KARINA LABORATORYCLIA [id number] [place] [address] [facility] LABCLIA [id number] [facility] [address] [address] [place] Basophils/100 WBC (Bld) 5.0 % Normal [facility] Comment on above: Order Comment: Speci men Type: BLOOD SPECIMENOrdering Facility: [facility] Address: [address] [place] [address] Performed By: #### 5 7021-8 ####KARINA LABORATORYCLIA [id number] [address] LABCLIA [id number] [address] [address] [place] Differential cell count method Nom (Bld) Manual Normal [facility] Comment on above: Order Comment: Speci men Type: BLOOD SPECIMENOrdering Facility: [facility] Address: [address] [place] [address] Performed By: #### 5 7021-8 ####KARINA LABORATORYCLIA [id number] [place] [id number] [facility] LABCLIA [id number] [facility] [address] [place] [address] [place] Eosinophils (Bld) [#/Vol] 0.07 10*3/uL Normal <0.46 [facility] Comment on above: Order Comment: Speci men Type: BLOOD SPECIMENOrdering Facility: [facility] Address: [address] [place] [address] Performed By: #### 5 7021-8 ####KARINA LABORATORYCLIA [id number] [place] [address] [facility] LABCLIA [id number] [facility] [address] [place] [address] [place] Eosinophils/100 WBC (Bld) 3.0 % Normal [facility] Comment on above: Order Comment: Speci men Type: BLOOD SPECIMENOrdering Facility: [facility] Address: [address] [place] [address] Performed By: #### 5 7021-8 ####KARINA LABORATORYCLIA [id number] [place], [place] [address] [place] [address] LABCLIA [id number] [address] [address] [place] Erythrocyte distribution width (RBC) [Ratio] 19.2 % High 11.5-15.0 [facility] Comment on above: Order Comment: Speci men Type: BLOOD SPECIMENOrdering Facility: [facility] Address: [address] [place] [address] Performed By: #### 5 7021-8 ####KARINA LABORATORYCLIA [id number] [address] LABCLIA [id number] [place] [id number] [place] Hematocrit (Bld) [Volume fraction] 25.4 % Low 39.0-51.0 [facility] Comment on above: Order Comment: Speci men Type: BLOOD SPECIMENOrdering Facility: [facility] Address: [address] [place] [address] Performed By: #### 5 7021-8 ####KARINA LABORATORYCLIA [id number] [place] [id number] [facility] LABCLIA [id number] [address] [address] [place] Hemoglobin (Bld) [Mass/Vol] 7.8 g/dL Low 13.0-17.0 [facility] Comment on above: Order Comment: Speci men Type: BLOOD SPECIMENOrdering Facility: [facility] Address: [address] [place] [address] Performed By: #### 5 7021-8 ####KARINA LABORATORYCLIA [id number] [address] LABCLIA [id number] [address] [address] [place] Lymphocytes (Bld) [#/Vol] 0.42 10*3/uL Low 1.00-4.00 [facility] Comment on above: Order Comment: Speci men Type: BLOOD SPECIMENOrdering Facility: [facility] Address: [address] [place] [address] Performed By: #### 5 7021-8 ####[facility] LABORATORYCLIA [id number] [address] LABCLIA [id number] [place] [address] [place] Lymphocytes/100 WBC (Bld) 17.0 % Normal [facility] Comment on above: Order Comment: Speci men Type: BLOOD SPECIMENOrdering Facility: [facility] Address: [address] [place] [address] Performed By: #### 5 7021-8 ####[facility] LABORATORYCLIA [id number] [address] LABCLIA [id number] [place] [address] [place] MCH (RBC) [Entitic mass] 30.4 pg Normal 26.0-34.0 [facility] Comment on above: Order Comment: Speci men Type: BLOOD SPECIMENOrdering Facility: [facility] Address: [address] [place] [address] Performed By: #### 5 7021-8 ####[facility] LABORATORYCLIA [id number] [place] [id number] [facility] LABCLIA [id number] [place] [id number] [place] MCHC (RBC) [Mass/Vol] 30.7 g/dL Normal 30.5-36.0 [facility] Comment on above: Order Comment: Speci men Type: BLOOD SPECIMENOrdering Facility: [facility] Address: [address] [place] [address] Performed By: #### 5 7021-8 ####KARINA LABORATORYCLIA [id number] [place] [address] [facility] LABCLIA [id number] [facility] [address] [place] [address] [place] MCV (RBC) [Entitic vol] 98.8 fL Normal 80.0-100.0 [facility] Comment on above: Order Comment: Speci men Type: BLOOD SPECIMENOrdering Facility: [facility] Address: [address] [place] [address] Performed By: #### 5 7021-8 ####KARINA LABORATORYCLIA [id number] [address] LABCLIA [id number] [facility] [place] [id number] [place] Metamyelocytes/100 WBC (Bld) 5.0 % Normal [facility] Comment on above: Order Comment: Speci men Type: BLOOD SPECIMENOrdering Facility: [facility] Address: [address] [place] [address] Performed By: #### 5 7021-8 ####KARINA LABORATORYCLIA [id number] [place] [id number] [facility] LABCLIA [id number] [facility] [address] [place] [address] [place] Monocytes (Bld) [#/Vol] 0.05 10*3/uL Normal <0.87 [facility] Comment on above: Order Comment: Speci men Type: BLOOD SPECIMENOrdering Facility: [facility] Address: [address] [place] [address] Performed By: #### 5 7021-8 ####KARINA LABORATORYCLIA [id number] [place] [address] [facility] LABCLIA [id number] [facility] [address] [place] [address] [place] Monocytes/100 WBC (Bld) 2.0 % Normal [facility] Comment on above: Order Comment: Speci men Type: BLOOD SPECIMENOrdering Facility: [facility] Address: [address] [place] [address] Performed By: #### 5 7021-8 ####KARINA LABORATORYCLIA [id number] [place] [address] [facility] LABCLIA [id number] [address] [address] [place] MYELO% 2.0 % Normal [facility] Comment on above: Order Comment: Speci men Type: BLOOD SPECIMENOrdering Facility: [facility] Address: [address] [place] [address] Performed By: #### 5 7021-8 ####KARINA LABORATORYCLIA [id number] [place] [address] [facility] LABCLIA [id number] [address] [address] [place] Neutrophils (Bld) [#/Vol] 1.62 10*3/uL Normal 1.45-7.50 [facility] Comment on above: Order Comment: Speci men Type: BLOOD SPECIMENOrdering Facility: [facility] Address: [address] [place] [address] Performed By: #### 5 7021-8 ####KARINA LABORATORYCLIA [id number] [place] [address] [facility] LABCLIA [id number] [address] [address] [place] Neutrophils/100 WBC (Bld) 66.0 % Normal [facility] Comment on above: Order Comment: Speci men Type: BLOOD SPECIMENOrdering Facility: [facility] Address: [address] [place] [address] Performed By: #### 5 7021-8 ####KARINA LABORATORYCLIA [id number] [place] [address] [facility] LABCLIA [id number] [address] [place] [address] [place] Nucleated RBC (Bld) [#/Vol] 0.02 10*3/uL High <0.01 [facility] Comment on above: Order Comment: Speci men Type: BLOOD SPECIMENOrdering Facility: [facility] Address: [address] [place] [address] Performed By: #### 5 7021-8 ####KARINA LABORATORYCLIA [id number] [place] [address] [facility] LABCLIA [id number] [address] [address] [place] Nucleated RBC/100 WBC (Bld) [Ratio] 1.0 /100 WBC Normal [facility] Comment on above: Order Comment: Speci men Type: BLOOD SPECIMENOrdering Facility: [facility] Address: [address] [place] [address] Performed By: #### 5 7021-8 ####[facility] LABORATORYCLIA [id number] [place] [address] [facility] LABCLIA [id number] [address] [address] [place] Ovalocytes LM Ql (Bld) Few Normal Cl [facility] Comment on above: Order Comment: Speci men Type: BLOOD SPECIMENOrdering Facility: [facility] Address: [address] [place] [address] Performed By: #### 5 7021-8 ####[facility] LABORATORYCLIA [id number] [place] [address] [facility] LABCLIA [id number] [address] [address] [place] Platelet mean volume (Bld) [Entitic vol] 9.0 fL Normal 9.0-12.7 [facility] Comment on above: Order Comment: Speci men Type: BLOOD SPECIMENOrdering Facility: [facility] Address: [address] [place] [address] Performed By: #### 5 7021-8 ####KARINA LABORATORYCLIA [id number] [place], [place] [address] [place] [address] LABCLIA [id number] [address] [address] [place] Platelets (Bld) [#/Vol] 583 10*3/uL High 150-400 [facility] Comment on above: Order Comment: Speci men Type: BLOOD SPECIMENOrdering Facility: [facility] Address: [address] [place] [address] Performed By: #### 5 7021-8 ####KARINA LABORATORYCLIA [id number] [place] [id number] [facility] LABCLIA [id number] [facility] [address] [address] [place] Platelets Estimate (Bld) [#/Vol] Increased Normal [facility] Comment on above: Order Comment: Speci men Type: BLOOD SPECIMENOrdering Facility: [facility] Address: [address] [place] [address] Performed By: #### 5 7021-8 ####KARINA LABORATORYCLIA [id number] [address] LABCLIA [id number] [facility] [address] [address] [place] Polychromasia LM Ql (Bld) Slight Normal [facility] Comment on above: Order Comment: Speci men Type: BLOOD SPECIMENOrdering Facility: [facility] Address: [address] [place] [address] Performed By: #### 5 7021-8 ####KARINA LABORATORYCLIA [id number] [place] [address] [facility] LABCLIA [id number] [facility] [address] [place] [address] [place] RBC (Bld) [#/Vol] 2.57 10*6/uL Low 4.20-6.00 [facility] Comment on above: Order Comment: Speci men Type: BLOOD SPECIMENOrdering Facility: [facility] Address: [address] [place] [address] Performed By: #### 5 7021-8 ####KARINA LABORATORYCLIA [id number] [address] LABCLIA [id number] [address] [address] [place] RED CELL MORPH Reviewed: see result s of individual morphologies Normal [facility] Comment on above: Order Comment: Speci men Type: BLOOD SPECIMENOrdering Facility: [facility] Address: [address] [place] [address] Performed By: #### 5 7021-8 ####KAR[facility] LABORATORYCLIA [id number] [address] LABCLIA [id number] [address] [address] [place] WBC (Bld) [#/Vol] 2.45 10*3/uL Low 3.70-11.00 [facility] Comment on above: Order Comment: Speci men Type: BLOOD SPECIMENOrdering Facility: [facility] Address: [address] [place] [address] Performed By: #### 5 7021-8 ####KARINA LABORATORYCLIA [id number] [place] [id number] [facility] LABCLIA [id number] [address] [address] [place] WBC Left Shift Ql (Bld) Present Normal [facility] Comment on above: Order Comment: Speci men Type: BLOOD SPECIMENOrdering Facility: [facility] Address: [address] [place] [address] Performed By: #### 5 7021-8 ####KARINA LABORATORYCLIA [id number] [address] LABCLIA [id number] JOSE ENRIQUE BURR [id number] [place], [place] [address] [place] [facility] COMP METAB 2000 PNL SERP Mayito 11-15-2024 [facility] AST SERPL-CCNC 20 U/L 14 - 40 U/L [facility] BILIRUB SERPL-MCNC 0.2 mg/dL 0.2 - 1.3 mg/dL [facility] PROT SERPL-MCNC 5.5 g/dL Low 6.3 - 8. 0 g/dL [facility] EGFRCR SERPLBLD CKD-EPI 2020 49 Low - PINF [facility] Comment on above: Estimated Glomerular Filtration Rate (eGFR) is calculated using the 2020 CKD-EPI creatinine equation. This equation utilizes serum creatinine, sex, and age as parameters. The creatinine assay has traceable calibration to isotope dilution-mass spectrometry. Refer to KDIGO guidelines for clinical interpretation. In patients with unstable renal function, e.g. those with acute kidney injury, the eGFR may not accurately reflect actual GFR. Specimen Type: BLOOD SPECIMEN [facility] Address: [address] [place] [address] Original Ordering Provider: SUZE TEJADA [facility] PHOSPHATE SERPL-MCNCon 0 11-15-2024 [facility] PHOSPHATE SERPL-MCNC 4.7 mg/dL 2.7 - 4.8 mg/dL [facility] Comprehensive metabolic 2000 panelon 11-15-2024 AST [Catalytic activity/Vol] 20 U/L 14 - 40 U/L [facility] Bilirubin [Mass/Vol] 0.2 mg/dL 0.2 - 1 .3 mg/dL [facility] GFR/1.73 sq M.predicted among non-blacks MDRD (S/P/Bld) [Vol rate/Area] 49 mL/min/{1.73_m2} Low - PINF [facility] Comment on above: Estimated Glomerular Filtration Rate (eGFR) is calculated using the 2020 CKD-EPI creatinine equation. This equation utilizes serum creatinine, sex, and age as parameters. The creatinine assay has traceable calibration to isotope dilution-mass spectrometry. Refer to KDIGO guidelines for clinical interpretation. In patients with unstable renal function, e.g. those with acute kidney injury, the eGFR may not accurately reflect actual GFR. Protein [Mass/Vol] 5.5 g/dL Low 6.3 - 8.0 g/dL [facility] Albumin [Mass/Vol] 2.9 g/dL Low 3.9-4.9 [facility] Comment on above: Order Comment: Speci men Type: BLOOD SPECIMENOrdering Facility: [facility] Address: [address] [place] [address] Performed By: #### 2 4323-8 ####KARINA LABORATORYCLIA [id number] [place] [address] [place] ALP [Catalytic activity/Vol] 143 U/L High 38-113 [facility] Comment on above: Order Comment: Speci men Type: BLOOD SPECIMENOrdering Facility: [facility] Address: [address] [place] [address] Performed By: #### 2 4323-8 ####KAR[facility] LABORATORYCLIA [id number] [place] [address] [place] ALT [Catalytic activity/Vol] 11 U/L Normal 10-54 [facility] Comment on above: Order Comment: Speci men Type: BLOOD SPECIMENOrdering Facility: [facility] Address: [address] [place] [address] Performed By: #### 2 4323-8 ####KARINA LABORATORYCLIA [id number] [place] [address] [place] Anion gap [Moles/Vol] 12 mmol/L Normal 8-15 [facility] Comment on above: Order Comment: Speci men Type: BLOOD SPECIMENOrdering Facility: [facility] Address: [address] [place] [address] Performed By: #### 2 4323-8 ####KARINA LABORATORYCLIA [id number] [place] [id number] [place] AST [Catalytic activity/Vol] 20 U/L Normal 14-40 [facility] Comment on above: Order Comment: Speci men Type: BLOOD SPECIMENOrdering Facility: [facility] Address: [address] [place] [address] Performed By: #### 2 4323-8 ####KARINA LABORATORYCLIA [id number] [place] [id number] [place] Bilirubin [Mass/Vol] 0.2 mg/dL Normal 0.2-1.3 [facility] Comment on above: Order Comment: Speci men Type: BLOOD SPECIMENOrdering Facility: [facility] Address: [address] [place] [address] Performed By: #### 2 4323-8 ####KARINA LABORATORYCLIA [id number] [place] [address] [place] Calcium [Mass/Vol] 8.6 mg/dL Normal 8.5-10.2 [facility] Comment on above: Order Comment: Speci men Type: BLOOD SPECIMENOrdering Facility: [facility] Address: [address] [place] [address] Performed By: #### 2 4323-8 ####KARINA LABORATORYCLIA [id number] [place] [address] [place] Chloride [Moles/Vol] 101 mmol/L Normal 98-107 [facility] Comment on above: Order Comment: Speci men Type: BLOOD SPECIMENOrdering Facility: [facility] Address: [address] [place] [address] Performed By: #### 2 4323-8 ####KARINA LABORATORYCLIA [id number] [place] [address] [place] CO2 [Moles/Vol] 22 mmol/L Normal 22-30 [facility] Comment on above: Order Comment: Speci men Type: BLOOD SPECIMENOrdering Facility: [facility] Address: [address] [place] [address] Performed By: #### 2 4323-8 ####KARINA LABORATORYCLIA [id number] [place] [address] [place] Creatinine [Mass/Vol] 1.52 mg/dL High 0.73-1.22 [facility] Comment on above: Order Comment: Speci men Type: BLOOD SPECIMENOrdering Facility: [facility] Address: [address] [place] [address] Performed By: #### 2 4323-8 ####KARINA LABORATORYCLIA [id number] [place] [id number] [place] eGFRcr SerPlBld CKD-EPI 2020 49 mL/min/1.73m??? Low >=60 [facility] Comment on above: Order Comment: Speci men Type: BLOOD SPECIMENOrdering Facility: [facility] Address: [address] [place] [address] Result Comment: Varsha mated Glomerular Filtration Rate (eGFR) is calculated using the 2020 CKD-EPI creatinine equation. This equation utilizes serum creatinine, sex, and age as parameters. The creatinine assay has traceable calibration to isotope dilution-mass spectrometry. Refer to KDIGO guidelines for clinical interpretation. In patients with unstable renal function, e.g. those with acute kidney injury, the eGFR may not accurately reflect actual GFR. Performed By: #### 2 4323-8 ####KARINA LABORATORYCLIA [id number] [place] [address] [place] Glucose [Mass/Vol] 88 mg/dL Normal 74-99 [facility] Comment on above: Order Comment: Dimitryi mark Type: BLOOD SPECIMENOrdering Facility: [facility] Address: [address] [place] [address] Result Comment: The [place] Diabetes Association (ADA) provides guidance for cutoff [...] Standards of Medical Care in Diabetes 2016, [place] [employer]. Diabetes Care. 2016.39(Suppl 1). Performed By: #### 2 4323-8 ####KARINA LABORATORYCLIA [id number] [place] [id number] [place] Potassium [Moles/Vol] 5.1 mmol/L Normal 3.7-5.1 [facility] [place] Comment on above: Order Comment: Speci men Type: BLOOD SPECIMENOrdering Facility: [facility] Address: [address] [place] [address] Performed By: #### 2 4323-8 ####KARINA LABORATORYCLIA [id number] [place] [address] [place] Protein [Mass/Vol] 5.5 g/dL Low 6.3-8.0 [facility] Comment on above: Order Comment: Speci men Type: BLOOD SPECIMENOrdering Facility: [facility] Address: [address] [place] [address] Performed By: #### 2 4323-8 ####KARINA LABORATORYCLIA [id number] [place] [address] [place] Sodium [Moles/Vol] 135 mmol/L Low 136-144 [facility] Comment on above: Order Comment: Speci men Type: BLOOD SPECIMENOrdering Facility: [facility] Address: [address] [place] [address] Performed By: #### 2 4323-8 ####KARINA LABORATORYCLIA [id number] [place] [address] [place] Urea nitrogen [Mass/Vol] 17 mg/dL Normal 9-24 [facility] Comment on above: Order Comment: Speci men Type: BLOOD SPECIMENOrdering Facility: [facility] Address: [address] [place] [address] Performed By: #### 2 4323-8 ####KARINA LABORATORYCLIA [id number] [place] [id number] [place] Laboratory - Chemistry and C hemistry - challengeon 11-15-2024 Albumin [Mass/Vol] 2.9 g/dL Low 3.9 - 4.9 g/dL [facility] ALP [Catalytic activity/Vol] 143 U/L High 38 - 113 U/L [facility] ALT [Catalytic activity/Vol] 11 U/L 10 - 54 U/L [facility] Anion gap [Moles/Vol] 12 mmol/L 8 - 15 mmol/L [facility] Calcium [Mass/Vol] 8.6 mg/dL 8.5 - 10. 2 mg/dL [facility] Chloride [Moles/Vol] 101 mmol/L 98 - 10 7 mmol/L [facility] CO2 [Moles/Vol] 22 mmol/L 22 - 30 mmol/L [facility] Creatinine [Mass/Vol] 1.52 mg/dL High 0.73 - 1.22 mg/dL [facility] Glucose [Mass/Vol] 88 mg/dL 74 - 99 mg/dL [facility] Comment on above: The [place] Diabete [employer] Association (ADA) provides guidance for cutoff values [...] Standards of Medical Care in Diabetes 2016, [place] [employer]. Diabetes Care. 2016.39(Suppl 1). Magnesium [Mass/Vol] 2.1 mg/dL 1.7 - 2 .3 mg/dL [facility] Potassium [Moles/Vol] 5.1 mmol/L 3.7 - 5.1 mmol/L [facility] Sodium [Moles/Vol] 135 mmol/L Low 136 - 144 mmol/L [facility] Urea nitrogen [Mass/Vol] 17 mg/dL 9 - 24 mg/dL [facility] Magnesium SerPl-mCncon 11-15 Magnesium [Mass/Vol] 2.1 mg/dL Normal 1.7-2.3 [facility] Comment on above: Order Comment: Speci men Type: BLOOD SPECIMENOrdering Facility: [facility] Address: [address] [place] [address] Performed By: #### 1 9123-9 ####KARINA LABORATORYCLIA [id number] [address] [place] No Panel Informationon 11-15 Interpretation and review of laboratory results Abnormal [facility] Interpretation and review of laboratory results Normal [facility] Specimen Type: BLOOD SPECIMEN [facility] Address: [address] [place] [address] Original Ordering Provider: CAMILA TEJADA PATHOLOGIST INTERPRETATION C BC AND DIFFERENTIAL (LAB REFLEX ORDER-NO BILL)on 11-15-2024 [employer] review Arthur (Unsp spec) [Interp] Reviewed by Marito Mak MD [facility] Pathologist Interpretation, CBCDIF Normocytic anemia with slight polychromasia Leukopenia with absolute lymphopenia Thrombocytosis [facility] [employer] review Arthur (Unsp spec) [Interp] Reviewed by Marito Mak MD Normal [facility] Comment on above: Order Comment: Speci men Type: BLOOD SPECIMENOrdering Facility: [facility] Address: [address] [place] [address] Performed By: #### L [id number] ####[facility] LABCLIA [id number] [address] [place] STAFF REVIEW, CBCDIF Normal [facility] Comment on above: Order Comment: Speci men Type: BLOOD SPECIMENOrdering Facility: [facility] Address: [address] [place] [address] Result Comment: Norm ocytic anemia with slight polychromasia\X09\Leukopenia with absolute lymphopeniaThrombocytosis Performed By: #### L [id number] ####[facility] LABCLIA [id number] [place] [id number] [place] PHOSPHORUS INORGANICon 11-15 Phosphate [Mass/Vol] 4.7 mg/dL 2.7 - 4 .8 mg/dL [facility] Phosphate SerPl-mCncon 11-15 Phosphate [Mass/Vol] 4.7 mg/dL Normal 2.7-4.8 [facility] Comment on above: Order Comment: Speci men Type: BLOOD SPECIMENOrdering Facility: [facility] Address: [address] [place] [address] Performed By: #### 2 777-1 ####KARINA LABORATORYCLIA [id number] [address] STAFF REVIEWon 11-15-2024 Reviewed MD KAT [facility] C-REACTIVE PROTEINon 025 CRP [Mass/Vol] 20.7 mg/dL High NINF - 0.9 mg/dL [facility] CBC W Auto Differential pane l (Bld)on 11-14-2024 Basophils (Bld) [#/Vol] 0.06 10*3/uL [facility] Basophils/100 WBC (Bld) 2.3 % [facility] Differential cell count method Nom (Bld) Auto [facility] Eosinophils (Bld) [#/Vol] [facility] Eosinophils/100 WBC (Bld) 0.4 % [facility] Erythrocyte distribution width (RBC) [Ratio] 19.1 % High 11.5 - 15.0 % [facility] Hematocrit (Bld) [Volume fraction] 23.9 % Low 39.0 - 51.0 % [facility] Hemoglobin (Bld) [Mass/Vol] 7.2 g/dL Low 13.0 - 17.0 g/dL [facility] Immature granulocytes (Bld) [#/Vol] 0.11 10*3/uL High [facility] Immature granulocytes/100 WBC (Bld) 4.2 % [facility] Interpretation and review of laboratory results Abnormal [facility] Lymphocytes (Bld) [#/Vol] 0.41 10*3/uL Low [facility] Lymphocytes/100 WBC (Bld) 15.8 % [facility] MCH (RBC) [Entitic mass] 30 pg 26.0 - 34.0 pg [facility] MCHC (RBC) [Mass/Vol] 30.1 g/dL Low 30.5 - 36.0 g/dL [facility] MCV (RBC) [Entitic vol] 99.6 fL 80.0 - 100.0 fL [facility] Monocytes (Bld) [#/Vol] 0.08 10*3/uL [facility] Monocytes/100 WBC (Bld) 3.1 % [facility] Neutrophils (Bld) [#/Vol] 1.92 10*3/uL [facility] Neutrophils/100 WBC (Bld) 74.2 % [facility] Nucleated RBC (Bld) [#/Vol] 0.03 10*3/uL High NINF [facility] Nucleated RBC/100 WBC (Bld) [Ratio] 1.2 % /100 WBC [facility] Platelet mean volume (Bld) [Entitic vol] 9.1 fL 9.0 - 12.7 fL [facility] Platelets (Bld) [#/Vol] 507 10*3/uL High [facility] RBC (Bld) [#/Vol] 2.4 10*6/uL Low 4.20 - 6.00 m/uL [facility] WBC (Bld) [#/Vol] 2.59 10*3/uL Low [facility] Basophils (Bld) [#/Vol] 0.06 10*3/uL Normal <0.11 [facility] Comment on above: Order Comment: Speci men Type: BLOOD SPECIMENOrdering Facility: [facility] Address: [address] [place] [address] Performed By: #### 5 7021-8 ####KARINA LABORATORYCLIA [id number] [place] [address] [place] Basophils/100 WBC (Bld) 2.3 % Normal [facility] Comment on above: Order Comment: Speci men Type: BLOOD SPECIMENOrdering Facility: [facility] Address: [address] [place] [address] Performed By: #### 5 7021-8 ####KAR[facility] LABORATORYCLIA [id number] [place] [address] [place] Differential cell count method Nom (Bld) Auto Normal [facility] Comment on above: Order Comment: Speci men Type: BLOOD SPECIMENOrdering Facility: [facility] Address: [address] [place] [address] Performed By: #### 5 7021-8 ####KARINA LABORATORYCLIA [id number] [place] [address] [place] Eosinophils (Bld) [#/Vol] 10*3/uL Normal <0.46 [facility] Comment on above: Order Comment: Speci men Type: BLOOD SPECIMENOrdering Facility: [facility] Address: [address] [place] [address] Performed By: #### 5 7021-8 ####KARINA LABORATORYCLIA [id number] [place] [address] [place] Eosinophils/100 WBC (Bld) 0.4 % Normal [facility] Comment on above: Order Comment: Speci men Type: BLOOD SPECIMENOrdering Facility: [facility] Address: [address] [place] [address] Performed By: #### 5 7021-8 ####KARINA LABORATORYCLIA [id number] [place] [address] [place] Erythrocyte distribution width (RBC) [Ratio] 19.1 % High 11.5-15.0 [facility] Comment on above: Order Comment: Speci men Type: BLOOD SPECIMENOrdering Facility: [facility] Address: [address] [place] [address] Performed By: #### 5 7021-8 ####KARINA LABORATORYCLIA [id number] [place] [address] [place] Hematocrit (Bld) [Volume fraction] 23.9 % Low 39.0-51.0 [facility] Comment on above: Order Comment: Speci men Type: BLOOD SPECIMENOrdering Facility: [facility] Address: [address] [place] [address] Performed By: #### 5 7021-8 ####KARINA LABORATORYCLIA [id number] [place] [address] [place] Hemoglobin (Bld) [Mass/Vol] 7.2 g/dL Low 13.0-17.0 [facility] Comment on above: Order Comment: Speci men Type: BLOOD SPECIMENOrdering Facility: [facility] Address: [address] [place] [address] Performed By: #### 5 7021-8 ####KARINA LABORATORYCLIA [id number] [place] [address] [place] Immature granulocytes (Bld) [#/Vol] 0.11 10*3/uL High <0.10 [facility] Comment on above: Order Comment: Speci men Type: BLOOD SPECIMENOrdering Facility: [facility] Address: [address] [place] [address] Performed By: #### 5 7021-8 ####KARINA LABORATORYCLIA [id number] [place] [address] [place] Immature granulocytes/100 WBC (Bld) 4.2 % Normal [facility] Comment on above: Order Comment: Speci men Type: BLOOD SPECIMENOrdering Facility: [facility] Address: [address] [place] [address] Performed By: #### 5 7021-8 ####KARINA LABORATORYCLIA [id number] [place] [address] [place] Lymphocytes (Bld) [#/Vol] 0.41 10*3/uL Low 1.00-4.00 [facility] Comment on above: Order Comment: Speci men Type: BLOOD SPECIMENOrdering Facility: [facility] Address: [address] [place] [address] Performed By: #### 5 7021-8 ####KARINA LABORATORYCLIA [id number] [place] [address] [place] Lymphocytes/100 WBC (Bld) 15.8 % Normal [facility] Comment on above: Order Comment: Speci men Type: BLOOD SPECIMENOrdering Facility: [facility] Address: [address] [place] [address] Performed By: #### 5 7021-8 ####KARINA LABORATORYCLIA [id number] [place] [address] [place] MCH (RBC) [Entitic mass] 30.0 pg Normal 26.0-34.0 [facility] Comment on above: Order Comment: Speci men Type: BLOOD SPECIMENOrdering Facility: [facility] Address: [address] [place] [address] Performed By: #### 5 7021-8 ####KARINA LABORATORYCLIA [id number] [place] [address] [place] MCHC (RBC) [Mass/Vol] 30.1 g/dL Low 30.5-36.0 [facility] Comment on above: Order Comment: Speci men Type: BLOOD SPECIMENOrdering Facility: [facility] Address: [address] [place] [address] Performed By: #### 5 7021-8 ####KARINA LABORATORYCLIA [id number] [place] [address] [place] MCV (RBC) [Entitic vol] 99.6 fL Normal 80.0-100.0 [facility] Comment on above: Order Comment: Speci men Type: BLOOD SPECIMENOrdering Facility: [facility] Address: [address] [place] [address] Performed By: #### 5 7021-8 ####KARINA LABORATORYCLIA [id number] [place] [address] [place] Monocytes (Bld) [#/Vol] 0.08 10*3/uL Normal <0.87 [facility] Comment on above: Order Comment: Speci men Type: BLOOD SPECIMENOrdering Facility: [facility] Address: [address] [place] [address] Performed By: #### 5 7021-8 ####KARINA LABORATORYCLIA [id number] [place] [address] [place] Monocytes/100 WBC (Bld) 3.1 % Normal [facility] Comment on above: Order Comment: Speci men Type: BLOOD SPECIMENOrdering Facility: [facility] Address: [address] [place] [address] Performed By: #### 5 7021-8 ####KARINA LABORATORYCLIA [id number] [place] [id number] [place] Neutrophils (Bld) [#/Vol] 1.92 10*3/uL Normal 1.45-7.50 [facility] Comment on above: Order Comment: Speci men Type: BLOOD SPECIMENOrdering Facility: [facility] Address: [address] [place] [address] Performed By: #### 5 7021-8 ####DEONROLF LABORATORYCLIA [id number] [place] [id number] [place] Neutrophils/100 WBC (Bld) 74.2 % Normal [facility] Comment on above: Order Comment: Speci men Type: BLOOD SPECIMENOrdering Facility: [facility] Address: [address] [place] [address] Performed By: #### 5 7021-8 ####KARINA LABORATORYCLIA [id number] [place] [address] [place] Nucleated RBC (Bld) [#/Vol] 0.03 10*3/uL High <0.01 [facility] Comment on above: Order Comment: Speci men Type: BLOOD SPECIMENOrdering Facility: [facility] Address: [address] [place] [address] Performed By: #### 5 7021-8 ####KARINA LABORATORYCLIA [id number] [place] [address] [place] Nucleated RBC/100 WBC (Bld) [Ratio] 1.2 /100 WBC Normal [facility] Comment on above: Order Comment: Speci men Type: BLOOD SPECIMENOrdering Facility: [facility] Address: [address] [place] [address] Performed By: #### 5 7021-8 ####KARINA LABORATORYCLIA [id number] [place] [address] [place] Platelet mean volume (Bld) [Entitic vol] 9.1 fL Normal 9.0-12.7 [facility] Comment on above: Order Comment: Speci men Type: BLOOD SPECIMENOrdering Facility: [facility] Address: [address] [place] [address] Performed By: #### 5 7021-8 ####KARINA LABORATORYCLIA [id number] [place] [id number] [place] Platelets (Bld) [#/Vol] 507 10*3/uL High 150-400 [facility] Comment on above: Order Comment: Speci men Type: BLOOD SPECIMENOrdering Facility: [facility] Address: [address] [place] [address] Performed By: #### 5 7021-8 ####KARINA LABORATORYCLIA [id number] [place] [address] [place] RBC (Bld) [#/Vol] 2.40 10*6/uL Low 4.20-6.00 [facility] Comment on above: Order Comment: Speci men Type: BLOOD SPECIMENOrdering Facility: [facility] Address: [address] [place] [address] Performed By: #### 5 7021-8 ####KARINA LABORATORYCLIA [id number] [place] [address] [place] [facility] WBC (Bld) [#/Vol] 2.59 10*3/uL Low 3.70-11.00 [facility] Comment on above: Order Comment: Speci men Type: BLOOD SPECIMENOrdering Facility: [facility] Address: [address] [place] [address] Performed By: #### 5 7021-8 ####KARINA LABORATORYCLIA [id number] [address] [place] [facility] PHOSPHATE SERPL-MCNCon 0 11-14-2024 [facility] PHOSPHATE SERPL-MCNC 4.9 mg/dL High 2.7 - 4.8 mg/dL [facility] Specimen Type: BLOOD SPECIMEN [facility] Address: [address] [place] [address] Original Ordering Provider: DAVID [facility] CRP SerPl-mCncon 11-14-2024 CRP [Mass/Vol] 20.7 mg/dL High <0.9 [facility] Comment on above: Order Comment: Speci men Type: BLOOD SPECIMENOrdering Facility: [facility] Address: [address] [place] [address] Performed By: #### 1 988-5 ####KARINA LABORATORYCLIA [id number] [place] [address] [place] Comprehensive metabolic 2000 panelon 11-14-2024 Albumin [Mass/Vol] 2.8 g/dL Low 3.9 - 4.9 g/dL [facility] ALP [Catalytic activity/Vol] 136 U/L High 38 - 113 U/L [facility] ALT [Catalytic activity/Vol] 12 U/L 10 - 54 U/L [facility] Anion gap [Moles/Vol] 10 mmol/L 8 - 15 mmol/L [facility] AST [Catalytic activity/Vol] 25 U/L 14 - 40 U/L [facility] Bilirubin [Mass/Vol] 0.2 mg/dL 0.2 - 1 .3 mg/dL [facility] Calcium [Mass/Vol] 8.6 mg/dL 8.5 - 10. 2 mg/dL [facility] Chloride [Moles/Vol] 102 mmol/L 98 - 10 7 mmol/L [facility] CO2 [Moles/Vol] 22 mmol/L 22 - 30 mmol/L [facility] Creatinine [Mass/Vol] 1.4 mg/dL High 0.73 - 1.22 mg/dL [facility] GFR/1.73 sq M.predicted among non-blacks MDRD (S/P/Bld) [Vol rate/Area] 54 mL/min/{1.73_m2} Low - PINF [facility] Comment on above: Estimated Glomerular Filtration Rate (eGFR) is calculated using the 2020 CKD-EPI creatinine equation. This equation utilizes serum creatinine, sex, and age as parameters. The creatinine assay has traceable calibration to isotope dilution-mass spectrometry. Refer to KDIGO guidelines for clinical interpretation. In patients with unstable renal function, e.g. those with acute kidney injury, the eGFR may not accurately reflect actual GFR. Glucose [Mass/Vol] 113 mg/dL High 74 - 99 mg/dL [facility] Comment on above: The [place] Diabete [place] Association (ADA) provides guidance for cutoff values [...] Standards of Medical Care in Diabetes 2016, [place] [employer]. Diabetes Care. 2016.39(Suppl 1). Potassium [Moles/Vol] 5.9 mmol/L High 3.7 - 5.1 mmol/L [facility] Protein [Mass/Vol] 5.7 g/dL Low 6.3 - 8.0 g/dL [facility] Sodium [Moles/Vol] 134 mmol/L Low 136 - 144 mmol/L [facility] Urea nitrogen [Mass/Vol] 20 mg/dL 9 - 24 mg/dL [facility] Albumin [Mass/Vol] 2.8 g/dL Low 3.9-4.9 [facility] Comment on above: Order Comment: Speci men Type: BLOOD SPECIMENOrdering Facility: [facility] Address: [address] [place] [address] Performed By: #### 2 4323-8 ####KARINA LABORATORYCLIA [id number] [place] [address] [place] ALP [Catalytic activity/Vol] 136 U/L High 38-113 [facility] Comment on above: Order Comment: Speci men Type: BLOOD SPECIMENOrdering Facility: [facility] Address: [address] [place] [address] Performed By: #### 2 4323-8 ####KARINA LABORATORYCLIA [id number] [place] [id number] [place] ALT [Catalytic activity/Vol] 12 U/L Normal 10-54 [facility] Comment on above: Order Comment: Speci men Type: BLOOD SPECIMENOrdering Facility: [facility] Address: [address] [place] [address] Performed By: #### 2 4323-8 ####KARINA LABORATORYCLIA [id number] [place] [id number] [place] Anion gap [Moles/Vol] 10 mmol/L Normal 8-15 [facility] Comment on above: Order Comment: Speci men Type: BLOOD SPECIMENOrdering Facility: [facility] Address: [address] [place] [address] Performed By: #### 2 4323-8 ####KARINA LABORATORYCLIA [id number] [place] [id number] [place] AST [Catalytic activity/Vol] 25 U/L Normal 14-40 [facility] Comment on above: Order Comment: Speci men Type: BLOOD SPECIMENOrdering Facility: [facility] Address: [address] [place] [address] Performed By: #### 2 4323-8 ####KARINA LABORATORYCLIA [id number] [place] [address] [place] Bilirubin [Mass/Vol] 0.2 mg/dL Normal 0.2-1.3 [facility] Comment on above: Order Comment: Speci men Type: BLOOD SPECIMENOrdering Facility: [facility] Address: [address] [place] [address] Performed By: #### 2 4323-8 ####KARINA LABORATORYCLIA [id number] [place] [address] [place] Calcium [Mass/Vol] 8.6 mg/dL Normal 8.5-10.2 [facility] Comment on above: Order Comment: Speci men Type: BLOOD SPECIMENOrdering Facility: [facility] Address: [address] [place] [address] Performed By: #### 2 4323-8 ####KARINA LABORATORYCLIA [id number] [place] [id number] [place] Chloride [Moles/Vol] 102 mmol/L Normal 98-107 [facility] Comment on above: Order Comment: Speci men Type: BLOOD SPECIMENOrdering Facility: [facility] Address: [address] [place] [address] Performed By: #### 2 4323-8 ####KARINA LABORATORYCLIA [id number] [place] [address] [place] CO2 [Moles/Vol] 22 mmol/L Normal 22-30 [facility] Comment on above: Order Comment: Speci men Type: BLOOD SPECIMENOrdering Facility: [facility] Address: [address] [place] [address] Performed By: #### 2 4323-8 ####KARINA LABORATORYCLIA [id number] [place] [id number] [place] Creatinine [Mass/Vol] 1.40 mg/dL High 0.73-1.22 [facility] Comment on above: Order Comment: Speci men Type: BLOOD SPECIMENOrdering Facility: [facility] Address: [address] [place] [address] Performed By: #### 2 4323-8 ####KARINA LABORATORYCLIA [id number] [place] [id number] [place] eGFRcr SerPlBld CKD-EPI 2020 54 mL/min/1.73m??? Low >=60 [facility] Comment on above: Order Comment: Speci men Type: BLOOD SPECIMENOrdering Facility: [facility] Address: [address] [place] [address] Result Comment: Varsha mated Glomerular Filtration Rate (eGFR) is calculated using the 2020 CKD-EPI creatinine equation. This equation utilizes serum creatinine, sex, and age as parameters. The creatinine assay has traceable calibration to isotope dilution-mass spectrometry. Refer to KDIGO guidelines for clinical interpretation. In patients with unstable renal function, e.g. those with acute kidney injury, the eGFR may not accurately reflect actual GFR. Performed By: #### 2 4323-8 ####DEONROLF LABORATORYCLIA [id number] [place] [id number] [place] Glucose [Mass/Vol] 113 mg/dL High 74-99 [facility] Comment on above: Order Comment: Speci men Type: BLOOD SPECIMENOrdering Facility: [facility] Address: [address] [place] [address] Result Comment: The [place] Diabetes [employer] (ADA) provides guidance for cutoff [...] Standards of Medical Care in Diabetes 2016, [place] [employer]. Diabetes Care. 2016.39(Suppl 1). Performed By: #### 2 4323-8 ####KARINA LABORATORYCLIA [id number] [place] [address] [place] Potassium [Moles/Vol] 5.9 mmol/L High 3.7-5.1 [facility] Comment on above: Order Comment: Speci men Type: BLOOD SPECIMENOrdering Facility: [facility] Address: [address] [place] [address] Performed By: #### 2 4323-8 ####KARINA LABORATORYCLIA [id number] [place] [address] [place] Protein [Mass/Vol] 5.7 g/dL Low 6.3-8.0 [facility] Comment on above: Order Comment: Speci men Type: BLOOD SPECIMENOrdering Facility: [facility] Address: [address] [place] [address] Performed By: #### 2 4323-8 ####KARINA LABORATORYCLIA [id number] [place] [address] [place] Sodium [Moles/Vol] 134 mmol/L Low 136-144 [facility] Comment on above: Order Comment: Speci men Type: BLOOD SPECIMENOrdering Facility: [facility] Address: [address] [place] [address] Performed By: #### 2 4323-8 ####KARINA LABORATORYCLIA [id number] [place] [id number] [place] Urea nitrogen [Mass/Vol] 20 mg/dL Normal 9-24 [facility] Comment on above: Order Comment: Speci men Type: BLOOD SPECIMENOrdering Facility: [facility] Address: [address] [place] [address] Performed By: #### 2 4323-8 ####KARINA LABORATORYCLIA [id number] [place] [address] [place] GGTon 11-14-2024 Gamma glutamyl transferase [Catalytic activity/Vol] 70 U/L 10 - 70 U/L [facility] GGT SerPl-cCncon 11-14-2024 Gamma glutamyl transferase [Catalytic activity/Vol] 70 U/L Normal 10-70 [facility] Comment on above: Order Comment: Speci men Type: BLOOD SPECIMENOrdering Facility: [facility] Address: [address] [place] [address] Performed By: #### 2 324-2 ####[facility] LABCLIA [id number] [place] [address] [place] Gamma glutamyl transferase [ Catalytic activity/Vol]on 11-14-2024 Interpretation and review of laboratory results Normal [facility] MAGNESIUMon 11-14-2024 Magnesium [Mass/Vol] 2.1 mg/dL 1.7 - 2 .3 mg/dL [facility] Magnesium SerPl-mCncon 11-14 Magnesium [Mass/Vol] 2.1 mg/dL Normal 1.7-2.3 [facility] Comment on above: Order Comment: Speci men Type: BLOOD SPECIMENOrdering Facility: [facility] Address: [address] [place] [address] Performed By: #### 1 9123-9 ####KARINA LABORATORYCLIA [id number] [place] [id number] [place] Magnesium [Mass/Vol]on 11-14 Interpretation and review of laboratory results Normal [facility] NT PRO BNPon 11-14-2024 Natriuretic peptide.B prohormone N-Terminal [Mass/Vol] 543 pg/mL High NINF - 125 pg/mL [facility] NT-proBNP SerPl-mCncon 11-14 Natriuretic peptide.B prohormone N-Terminal [Mass/Vol] 543 pg/mL High <125 [facility] Comment on above: Order Comment: Speci men Type: BLOOD SPECIMENOrdering Facility: [facility] Address: [address] [place] [address] Performed By: #### 3 3762-6 ####KARINA LABORATORYCLIA [id number] [place] [address] [place] Natriuretic peptide.B prohor dilshad N-Terminal [Mass/Vol]on 11-14-2024 Interpretation and review of laboratory results Abnormal [facility] No Panel Informationon 11-14 Interpretation and review of laboratory results Abnormal [facility] Interpretation and review of laboratory results Abnormal [facility] PHOSPHORUS INORGANICon 11-14 Phosphate [Mass/Vol] 4.9 mg/dL High 2.7 - 4 .8 mg/dL [facility] Phosphate SerPl-mCncon 11-14 Phosphate [Mass/Vol] 4.9 mg/dL High 2.7-4.8 [facility] Comment on above: Order Comment: Mary flores Type: BLOOD SPECIMENOrdering Facility: [facility] Address: [address] [place] [address] Performed By: #### 2 777-1 ####KARINA LABORATORYCLIA [id number] [place] [address] [place] TACROLIMUS/FK-506 BLon 11-14 Tacrolimus (Bld) [Mass/Vol] 10.2 ng/mL 5.0 - 20.0 ng/mL [facility] Comment on above: Individualized targe t levels for a given patient [...] situation. Test performed by chemiluminescent immunoassay using [employer] i. Tacrolimus (Bld) [Mass/Vol]o n 11-14-2024 Interpretation and review of laboratory results Normal [facility] Tacrolimus Bld-mCncon 2024 Tacrolimus (Bld) [Mass/Vol] 10.2 ng/mL Normal 5.0-20.0 [facility] Comment on above: Order Comment: Speci men Type: BLOOD SPECIMENOrdering Facility: [facility] Address: [id number] [place], [place] [address] [address] Result Comment: Keiko vidualized target levels for a given patient will [...] situation. Test performed by chemiluminescent immunoassay using [employer] i. 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 Refer to note in patient chart for documentation of history and physical. Referring Physician: Nick Cruz (Referring MD) Medicines: General Anesthesia, Cipro [...] administered by the anesthesia team. Findings: A safety attendant film of the abdomen was obtained. Surgical [...] standard gastroscope was used to perform an esophagogastroduodenoscop y. The cap was not found and likely [...] 3 months. Procedure Code(s): --- Professional --- 17894, Endoscopic retrograde cholangiopancreatography (ERCP); with removal of calculi/debris from biliary/pancreatic duct(s) 75232, Endoscopic catheterization of the biliary ductal system, radiological supervision and interpretation Diagnosis Code(s): --- Professional --- Z96.89, Presence of other specified functional implants K80.51, Calculus of bile duct without cholangitis or cholecystitis with obstruction Z09, Encounter for follow-up examination after completed treatment for conditions other than malignant neoplasm Z94.4, Liver transplant status CPT copyright 2020 [employer]. All rights reserved. Attending Participation: I was present and participated during the entire procedure, including non-david portions. Scope In: 2:57:12 PM Scope Out: 3:17:12 PM MD Jane Alexander MD 11/13/2024 3:25:50 PM This report has been signed electronically by Jane Correia MD Number of Addenda: 0 Note Initiated On: 11/13/2024 1:11 PM [facility] ERCP Normal [facility] ERCPOrdered By: Radiologist Radiology on 11-13-2024 [facility] Work Phone: ERCP Study observation Narra tiveon 11-13-2024 [facility] HISTORY PHYSICALon HISTORY PHYSICAL Normal [facility] NURSING PROGon 11-13-2024 NURSING PROG Normal [facility] NURSING PROG Normal [facility] NURSING PROG Normal [facility] No Panel Informationon 11-13 Radiology Study observation (narrative) [facility] C-REACTIVE PROTEINon 025 CRP [Mass/Vol] 16.9 mg/dL High NINF - 0.9 mg/dL [facility] CBC W Auto Differential pane l (Bld)on 11-11-2024 Anisocytosis Ql (Bld) Present [facility] Basophils (Bld) [#/Vol] 0.13 10*3/uL High NINF [facility] Basophils/100 WBC (Bld) 4 % [facility] Differential cell count method Nom (Bld) Manual [facility] Eosinophils (Bld) [#/Vol] 0.1 10*3/uL NINF [facility] Eosinophils/100 WBC (Bld) 3 % [facility] Erythrocyte distribution width (RBC) [Ratio] 18.6 % High 11.5 - 15.0 % [facility] Hematocrit (Bld) [Volume fraction] 25.6 % Low 39.0 - 51.0 % [facility] Hemoglobin (Bld) [Mass/Vol] 8 g/dL Low 13.0 - 17.0 g/dL [facility] Interpretation and review of laboratory results Abnormal [facility] Lymphocytes (Bld) [#/Vol] 0.23 10*3/uL Low [facility] Lymphocytes/100 WBC (Bld) 7 % [facility] MCH (RBC) [Entitic mass] 30.8 pg 26.0 - 34.0 pg [facility] MCHC (RBC) [Mass/Vol] 31.3 g/dL 30.5 - 36.0 g/dL [facility] MCV (RBC) [Entitic vol] 98.5 fL 80.0 - 100.0 fL [facility] [place] % 3 % [facility] Monocytes (Bld) [#/Vol] 0.1 10*3/uL NINF [facility] Monocytes/100 WBC (Bld) 3 % [facility] Neutrophils (Bld) [#/Vol] 2.58 10*3/uL [facility] Neutrophils/100 WBC (Bld) 80 % [facility] Nucleated RBC (Bld) [#/Vol] [facility] Nucleated RBC/100 WBC (Bld) [Ratio] 0 % /100 WBC [facility] Ovalocytes LM Ql (Bld) Few Cl [facility] Platelet mean volume (Bld) [Entitic vol] 9 fL 9.0 - 12.7 fL [facility] Platelets (Bld) [#/Vol] 561 10*3/uL High [facility] Platelets Estimate (Bld) [#/Vol] Increased [facility] Polychromasia LM Ql (Bld) Slight [facility] RBC (Bld) [#/Vol] 2.6 10*6/uL Low 4.20 - 6.00 m/uL [facility] Red Cell Morph Reviewed: see result s of individual morphologies [facility] WBC (Bld) [#/Vol] 3.22 10*3/uL Low [facility] WBC Left Shift Ql (Bld) Present [facility] This is an appended report. These results have been appended to a previously verified report. [facility] Anisocytosis Ql (Bld) Present Normal [facility] Comment on above: Order Comment: Speci men Type: BLOOD SPECIMENOrdering Facility: [facility] Address: [address] [place] [address] Performed By: #### 5 7021-8 ####KARINA LABORATORYCLIA [id number] [place] [address] [place] Basophils (Bld) [#/Vol] 0.13 10*3/uL High <0.11 [facility] Comment on above: Order Comment: Speci men Type: BLOOD SPECIMENOrdering Facility: [facility] Address: [address] [place] [address] Performed By: #### 5 7021-8 ####KARINA LABORATORYCLIA [id number] [place] [address] [place] Basophils/100 WBC (Bld) 4.0 % Normal [facility] Comment on above: Order Comment: Speci men Type: BLOOD SPECIMENOrdering Facility: [facility] Address: [address] [place] [address] Performed By: #### 5 7021-8 ####KARINA LABORATORYCLIA [id number] [place] [address] [place] Differential cell count method Nom (Bld) Manual Normal [facility] Comment on above: Order Comment: Speci men Type: BLOOD SPECIMENOrdering Facility: [facility] Address: [address] [place] [address] Performed By: #### 5 7021-8 ####KARINA LABORATORYCLIA [id number] [place] [address] [place] Eosinophils (Bld) [#/Vol] 0.10 10*3/uL Normal <0.46 [facility] Comment on above: Order Comment: Speci men Type: BLOOD SPECIMENOrdering Facility: [facility] Address: [address] [place] [address] Performed By: #### 5 7021-8 ####KARINA LABORATORYCLIA [id number] [place] [id number] [place] Eosinophils/100 WBC (Bld) 3.0 % Normal [facility] Comment on above: Order Comment: Speci men Type: BLOOD SPECIMENOrdering Facility: [facility] Address: [address] [place] [address] Performed By: #### 5 7021-8 ####KARINA LABORATORYCLIA [id number] [place] [address] [place] Erythrocyte distribution width (RBC) [Ratio] 18.6 % High 11.5-15.0 [facility] Comment on above: Order Comment: Speci men Type: BLOOD SPECIMENOrdering Facility: [facility] Address: [address] [place] [address] Performed By: #### 5 7021-8 ####KARINA LABORATORYCLIA [id number] [place] [address] [place] Hematocrit (Bld) [Volume fraction] 25.6 % Low 39.0-51.0 [facility] Comment on above: Order Comment: Speci men Type: BLOOD SPECIMENOrdering Facility: [facility] Address: [address] [place] [address] Performed By: #### 5 7021-8 ####KARINA LABORATORYCLIA [id number] [place] [address] [place] Hemoglobin (Bld) [Mass/Vol] 8.0 g/dL Low 13.0-17.0 [facility] Comment on above: Order Comment: Speci men Type: BLOOD SPECIMENOrdering Facility: [facility] Address: [address] [place] [address] Performed By: #### 5 7021-8 ####KARINA LABORATORYCLIA [id number] [place] [address] [place] Lymphocytes (Bld) [#/Vol] 0.23 10*3/uL Low 1.00-4.00 [facility] Comment on above: Order Comment: Speci men Type: BLOOD SPECIMENOrdering Facility: [facility] Address: [address] [place] [address] Performed By: #### 5 7021-8 ####KARINA LABORATORYCLIA [id number] [place] [address] [place] Lymphocytes/100 WBC (Bld) 7.0 % Normal [facility] Comment on above: Order Comment: Speci men Type: BLOOD SPECIMENOrdering Facility: [facility] Address: [address] [place] [address] Performed By: #### 5 7021-8 ####KARINA LABORATORYCLIA [id number] [place] [address] [place] MCH (RBC) [Entitic mass] 30.8 pg Normal 26.0-34.0 [facility] Comment on above: Order Comment: Speci men Type: BLOOD SPECIMENOrdering Facility: [facility] Address: [address] [place] [address] Performed By: #### 5 7021-8 ####KARINA LABORATORYCLIA [id number] [place] [address] [place] MCHC (RBC) [Mass/Vol] 31.3 g/dL Normal 30.5-36.0 [facility] Comment on above: Order Comment: Speci men Type: BLOOD SPECIMENOrdering Facility: [facility] Address: [address] [place] [address] Performed By: #### 5 7021-8 ####KARINA LABORATORYCLIA [id number] [place] [address] [place] MCV (RBC) [Entitic vol] 98.5 fL Normal 80.0-100.0 [facility] Comment on above: Order Comment: Speci men Type: BLOOD SPECIMENOrdering Facility: [facility] Address: [address] [place] [address] Performed By: #### 5 7021-8 ####KARINA LABORATORYCLIA [id number] [place] [address] [place] Metamyelocytes/100 WBC (Bld) 3.0 % Normal [facility] Comment on above: Order Comment: Speci men Type: BLOOD SPECIMENOrdering Facility: [facility] Address: [address] [place] [address] Performed By: #### 5 7021-8 ####KARIAN LABORATORYCLIA [id number] [place] [address] [place] Monocytes (Bld) [#/Vol] 0.10 10*3/uL Normal <0.87 [facility] Comment on above: Order Comment: Speci men Type: BLOOD SPECIMENOrdering Facility: [facility] Address: [address] [place] [address] Performed By: #### 5 7021-8 ####KARINA LABORATORYCLIA [id number] [place] [address] [place] Monocytes/100 WBC (Bld) 3.0 % Normal [facility] Comment on above: Order Comment: Speci men Type: BLOOD SPECIMENOrdering Facility: [facility] Address: [address] [place] [address] Performed By: #### 5 7021-8 ####KARINA LABORATORYCLIA [id number] [place] [address] [place] Neutrophils (Bld) [#/Vol] 2.58 10*3/uL Normal 1.45-7.50 [facility] Comment on above: Order Comment: Speci men Type: BLOOD SPECIMENOrdering Facility: [facility] Address: [address] [place] [address] Performed By: #### 5 7021-8 ####KARINA LABORATORYCLIA [id number] [place] [id number] [place] Neutrophils/100 WBC (Bld) 80.0 % Normal [facility] Comment on above: Order Comment: Speci men Type: BLOOD SPECIMENOrdering Facility: [facility] Address: [address] [place] [address] Performed By: #### 5 7021-8 ####KARINA LABORATORYCLIA [id number] [place] [address] [place] Nucleated RBC (Bld) [#/Vol] 10*3/uL Normal <0.01 [facility] Comment on above: Order Comment: Speci men Type: BLOOD SPECIMENOrdering Facility: [facility] Address: [address] [place] [address] Performed By: #### 5 7021-8 ####KARINA LABORATORYCLIA [id number] [place] [address] [place] Nucleated RBC/100 WBC (Bld) [Ratio] 0.0 /100 WBC Normal [facility] Comment on above: Order Comment: Speci men Type: BLOOD SPECIMENOrdering Facility: [facility] Address: [address] [place] [address] Performed By: #### 5 7021-8 ####KARINA LABORATORYCLIA [id number] [place] [address] [place] Ovalocytes LM Ql (Bld) Few Normal [facility] Comment on above: Order Comment: Speci men Type: BLOOD SPECIMENOrdering Facility: [facility] Address: [address] [place] [address] Performed By: #### 5 7021-8 ####KARINA LABORATORYCLIA [id number] [place] [address] [place] Platelet mean volume (Bld) [Entitic vol] 9.0 fL Normal 9.0-12.7 [facility] Comment on above: Order Comment: Speci men Type: BLOOD SPECIMENOrdering Facility: [facility] Address: [address] [place] [address] Performed By: #### 5 7021-8 ####KARINA LABORATORYCLIA [id number] [place] [address] [place] Platelets (Bld) [#/Vol] 561 10*3/uL High 150-400 [facility] Comment on above: Order Comment: Speci men Type: BLOOD SPECIMENOrdering Facility: [facility] Address: [address] [place] [address] Performed By: #### 5 7021-8 ####KARINA LABORATORYCLIA [id number] [place] [address] [place] Platelets Estimate (Bld) [#/Vol] Increased Normal [facility] Comment on above: Order Comment: Speci men Type: BLOOD SPECIMENOrdering Facility: [facility] Address: [address] [place] [address] Performed By: #### 5 7021-8 ####KARINA LABORATORYCLIA [id number] [place] [id number] [place] Polychromasia LM Ql (Bld) Slight Normal [facility] Comment on above: Order Comment: Speci men Type: BLOOD SPECIMENOrdering Facility: [facility] Address: [address] [place] [address] Performed By: #### 5 7021-8 ####KARINA LABORATORYCLIA [id number] [place] [address] [place] RBC (Bld) [#/Vol] 2.60 10*6/uL Low 4.20-6.00 [facility] Comment on above: Order Comment: Speci men Type: BLOOD SPECIMENOrdering Facility: [facility] Address: [address] [place] [address] Performed By: #### 5 7021-8 ####KARINA LABORATORYCLIA [id number] [place] [address] [place] RED CELL MORPH Reviewed: see result s of individual morphologies Normal [facility] Comment on above: Order Comment: Speci men Type: BLOOD SPECIMENOrdering Facility: [facility] Address: [address] [place] [address] Performed By: #### 5 7021-8 ####KARINA LABORATORYCLIA [id number] [place] [address] [place] WBC (Bld) [#/Vol] 3.22 10*3/uL Low 3.70-11.00 [facility] Comment on above: Order Comment: Speci men Type: BLOOD SPECIMENOrdering Facility: [facility] Address: [address] [place] [address] Performed By: #### 5 7021-8 ####DEONROLF LABORATORYCLIA [id number] [place] [address] [place] WBC Left Shift Ql (Bld) Present Normal [facility] Comment on above: Order Comment: Speci men Type: BLOOD SPECIMENOrdering Facility: [facility] Address: [address] [place] [address] Performed By: #### 5 7021-8 ####KARINA LABORATORYCLIA [id number] [place] [address] [place] [facility] NT-PROBNP SERPL-NCon 0 11-11-2024 Natriuretic peptide B (Bld) [Mass/Vol] 453 pg/mL High NINF - 125 pg/mL [facility] Specimen Type: BLOOD SPECIMEN [facility] Address: [address] [place] [address] Original Ordering Provider: DAVID CRUZ [facility] CRP SerPl[facility]2024 CRP [Mass/Vol] 16.9 mg/dL High <0.9 [facility] Comment on above: Order Comment: Speci men Type: BLOOD SPECIMENOrdering Facility: [facility] Address: [address] [place] [address] Performed By: #### 1 988-5 ####DEONROLF LABORATORYCLIA [id number] [place] [address] [place] CYTOMEGALOVIRUS (CMV) DNA, Q UANTITATIVE PCR, PLASMAon 11-11-2024 CMV DNA JESSICA+probe Qn (P) Not detected Not Detected [facility] Interpretation and review of laboratory results Normal [facility] sav CMV is an in v itro nucleic acid amplification test for the quantitation of cytomegalovirus (CMV) DNA in human EDTA plasma. The linear range of the assay is 34.5 to 10,000,000 IU/mL (1.54 - 7.00 log IU/mL). The lower limit of detection of the assay is 34.5 IU/mL. [facility] CMV DNA JESSICA+probe Qn (P) Not detected Normal Not Detected [facility] Comment on above: Order Comment: Speci men Type: BLOOD SPECIMENOrdering Facility: [facility] Address: [address] [place] [address] Performed By: #### C MVQNT ####[facility] LABCLIA [id number] [place] [id number] [place] Comprehensive metabolic 2000 panelon 11-11-2024 Albumin [Mass/Vol] 3 g/dL Low 3.9 - 4.9 g/dL [facility] ALP [Catalytic activity/Vol] 151 U/L High 38 - 113 [facility] ALT [Catalytic activity/Vol] 11 U/L 10 - 54 U/L [facility] Anion gap [Moles/Vol] 12 mmol/L 8 - 15 mmol/L [facility] AST [Catalytic activity/Vol] 19 U/L 14 - 40 U/L [facility] Bilirubin [Mass/Vol] 0.3 mg/dL 0.2 - 1 .3 mg/dL [facility] Calcium [Mass/Vol] 8.8 mg/dL 8.5 - 10. 2 mg/dL [facility] Chloride [Moles/Vol] 100 mmol/L 98 - 10 7 mmol/L [facility] CO2 [Moles/Vol] 24 mmol/L 22 - 30 mmol/L [facility] Creatinine [Mass/Vol] 1.52 mg/dL High 0.73 - 1.22 mg/dL [facility] GFR/1.73 sq M.predicted among non-blacks MDRD (S/P/Bld) [Vol rate/Area] 49 mL/min/{1.73_m2} Low - PINF [facility] Comment on above: Estimated Glomerular Filtration Rate (eGFR) is calculated using the 2020 CKD-EPI creatinine equation. This equation utilizes serum creatinine, sex, and age as parameters. The creatinine assay has traceable calibration to isotope dilution-mass spectrometry. Refer to KDIGO guidelines for clinical interpretation. In patients with unstable renal function, e.g. those with acute kidney injury, the eGFR may not accurately reflect actual GFR. Glucose [Mass/Vol] 90 mg/dL 74 - 99 mg/dL [facility] Comment on above: The [place] [employer] (ADA) provides guidance for cutoff values [...] Standards of Medical Care in Diabetes 2016, [place] [employer]. Diabetes Care. 2016.39(Suppl 1). Potassium [Moles/Vol] 5 mmol/L 3.7 - 5.1 mmol/L [facility] Protein [Mass/Vol] 5.8 g/dL Low 6.3 - 8.0 g/dL [facility] Sodium [Moles/Vol] 136 mmol/L 136 - 144 mmol/L [facility] Urea nitrogen [Mass/Vol] 18 mg/dL 9 - 24 mg/dL [facility] Albumin [Mass/Vol] 3.0 g/dL Low 3.9-4.9 [facility] Comment on above: Order Comment: Speci men Type: BLOOD SPECIMENOrdering Facility: [facility] Address: [address] [place] [address] Performed By: #### 2 4323-8 ####[facility] LABORATORYCLIA [id number] [place] [address] [place] ALP [Catalytic activity/Vol] 151 U/L High 38-113 [facility] Comment on above: Order Comment: Speci men Type: BLOOD SPECIMENOrdering Facility: [facility] Address: [address] [place] [address] Performed By: #### 2 4323-8 ####[facility] LABORATORYCLIA [id number] [place] [id number] [place] ALT [Catalytic activity/Vol] 11 U/L Normal 10-54 [facility] Comment on above: Order Comment: Speci men Type: BLOOD SPECIMENOrdering Facility: [facility] Address: [address] [place] [address] Performed By: #### 2 4323-8 ####[facility] LABORATORYCLIA [id number] [place] [address] [place] Anion gap [Moles/Vol] 12 mmol/L Normal 8-15 [facility] [place] Comment on above: Order Comment: Speci men Type: BLOOD SPECIMENOrdering Facility: [facility] Address: [address] [place] [address] Performed By: #### 2 4323-8 ####[facility] LABORATORYCLIA [id number] [place] [address] [place] AST [Catalytic activity/Vol] 19 U/L Normal 14-40 [facility] Comment on above: Order Comment: Speci men Type: BLOOD SPECIMENOrdering Facility: [facility] Address: [address] [place] [address] Performed By: #### 2 4323-8 ####[facility] LABORATORYCLIA [id number] [place] [address] [place] Bilirubin [Mass/Vol] 0.3 mg/dL Normal 0.2-1.3 [facility] Comment on above: Order Comment: Speci men Type: BLOOD SPECIMENOrdering Facility: [facility] Address: [address] [place] [address] Performed By: #### 2 4323-8 ####[facility] LABORATORYCLIA [id number] [place] [address] [place] Calcium [Mass/Vol] 8.8 mg/dL Normal 8.5-10.2 [facility] Comment on above: Order Comment: Speci men Type: BLOOD SPECIMENOrdering Facility: [facility] Address: [address] [place] [address] Performed By: #### 2 4323-8 ####[facility] LABORATORYCLIA [id number] [place] [id number] [place] Chloride [Moles/Vol] 100 mmol/L Normal 98-107 [facility] Comment on above: Order Comment: Speci men Type: BLOOD SPECIMENOrdering Facility: [facility] Address: [address] [place] [address] Performed By: #### 2 4323-8 ####[facility] LABORATORYCLIA [id number] [place] [id number] [place] CO2 [Moles/Vol] 24 mmol/L Normal 22-30 [facility] Comment on above: Order Comment: Speci men Type: BLOOD SPECIMENOrdering Facility: [facility] Address: [address] [place] [address] Performed By: #### 2 4323-8 ####[facility] LABORATORYCLIA [id number] [place] [address] [place] Creatinine [Mass/Vol] 1.52 mg/dL High 0.73-1.22 [facility] [place] Comment on above: Order Comment: Speci men Type: BLOOD SPECIMENOrdering Facility: [facility] Address: [address] [place] [address] Performed By: #### 2 4323-8 ####[facility] LABORATORYCLIA [id number] [place] [address] [place] eGFRcr SerPlBld CKD-EPI 2020 49 mL/min/1.73m??? Low >=60 [facility] Comment on above: Order Comment: Speci men Type: BLOOD SPECIMENOrdering Facility: [facility] Address: [address] [place] [address] Result Comment: Varsha mated Glomerular Filtration Rate (eGFR) is calculated using the 2020 CKD-EPI creatinine equation. This equation utilizes serum creatinine, sex, and age as parameters. The creatinine assay has traceable calibration to isotope dilution-mass spectrometry. Refer to KDIGO guidelines for clinical interpretation. In patients with unstable renal function, e.g. those with acute kidney injury, the eGFR may not accurately reflect actual GFR. Performed By: #### 2 4323-8 ####[facility] LABORATORYCLIA [id number] [place] [id number] [place] Glucose [Mass/Vol] 90 mg/dL Normal 74-99 [facility] Comment on above: Order Comment: Speci men Type: BLOOD SPECIMENOrdering Facility: [facility] Address: [address] [place] [address] Result Comment: The [place] Diabetes [employer] (ADA) provides guidance for cutoff [...] Standards of Medical Care in Diabetes 2016, [place] [employer]. Diabetes Care. 2016.39(Suppl 1). Performed By: #### 2 4323-8 ####[facility] LABORATORYCLIA [id number] [place] [address] [place] Potassium [Moles/Vol] 5.0 mmol/L Normal 3.7-5.1 [facility] [place] Comment on above: Order Comment: Speci men Type: BLOOD SPECIMENOrdering Facility: [facility] Address: [address] [place] [address] Performed By: #### 2 4323-8 ####[facility] LABORATORYCLIA [id number] [place] [address] [place] Protein [Mass/Vol] 5.8 g/dL Low 6.3-8.0 [facility] Comment on above: Order Comment: Speci men Type: BLOOD SPECIMENOrdering Facility: [facility] Address: [address] [place] [address] Performed By: #### 2 4323-8 ####[facility] LABORATORYCLIA [id number] [place] [id number] [place] Sodium [Moles/Vol] 136 mmol/L Normal 136-144 [facility] Comment on above: Order Comment: Speci men Type: BLOOD SPECIMENOrdering Facility: [facility] Address: [address] [place] [address] Performed By: #### 2 4323-8 ####[facility] LABORATORYCLIA [id number] [place] [id number] [place] Urea nitrogen [Mass/Vol] 18 mg/dL Normal 9-24 [facility] Comment on above: Order Comment: Speci men Type: BLOOD SPECIMENOrdering Facility: [facility] Address: [address] [place] [address] Performed By: #### 2 4323-8 ####[facility] LABORATORYCLIA [id number] [place] [address] [place] GGTon 11-11-2024 Gamma glutamyl transferase [Catalytic activity/Vol] 93 U/L High 10 - 70 U/L [facility] GGT SerPl-cCncon 11-11-2024 Gamma glutamyl transferase [Catalytic activity/Vol] 93 U/L High 10-70 [facility] Comment on above: Order Comment: Speci men Type: BLOOD SPECIMENOrdering Facility: [facility] Address: [address] [place] [address] Performed By: #### 2 324-2 ####[facility] LABCLIA [id number] [place] [address] [place] Gamma glutamyl transferase [ Catalytic activity/Vol]on 11-11-2024 Interpretation and review of laboratory results Abnormal [facility] MAGNESIUMon 11-11-2024 Magnesium [Mass/Vol] 2.2 mg/dL 1.7 - 2 .3 mg/dL [facility] Magnesium SerPl-mCncon 11-11 Magnesium [Mass/Vol] 2.2 mg/dL Normal 1.7-2.3 [facility] Comment on above: Order Comment: Speci men Type: BLOOD SPECIMENOrdering Facility: [facility] Address: [address] [place] [address] Performed By: #### 1 9123-9 ####[facility] LABORATORYCLIA [id number] [place] [id number] [place] Magnesium [Mass/Vol]on 11-11 Interpretation and review of laboratory results Normal [facility] NT PRO BNPon 11-11-2024 Natriuretic peptide.B prohormone N-Terminal [Mass/Vol] 453 pg/mL High NINF - 125 pg/mL [facility] NT-proBNP SerPl-mCncon 11-11 Natriuretic peptide.B prohormone N-Terminal [Mass/Vol] 453 pg/mL High <125 [facility] Comment on above: Order Comment: Speci men Type: BLOOD SPECIMENOrdering Facility: [facility] Address: [address] [place] [address] Performed By: #### 3 3762-6 ####[facility] LABORATORYCLIA [id number] [place] [id number] [place] No Panel Informationon 11-11 [facility] Interpretation and review of laboratory results Abnormal [facility] Interpretation and review of laboratory results Abnormal [facility] PHOSPHORUS INORGANICon 11-11 Phosphate [Mass/Vol] 3.9 mg/dL 2.7 - 4 .8 mg/dL [facility] Phosphate SerPl-[facility] 11-11 Phosphate [Mass/Vol] 3.9 mg/dL Normal 2.7-4.8 [facility] Comment on above: Order Comment: Speci men Type: BLOOD SPECIMENOrdering Facility: [facility] Address: [address] [place] [address] Performed By: #### 2 777-1 ####[facility] LABORATORYCLIA [id number] [address] [place] [facility] Phosphate [Mass/Vol]on 11-11 Interpretation and review of laboratory results Normal [facility] TACROLIMUS/FK-506 BLOrdered By: Brayan Malloy on 11-11-2024 Tacrolimus (Bld) [Mass/Vol] 11.5 ng/mL 5.0 - 20.0 ng/mL [facility] Comment on above: Individualized targe t levels for a given patient [...] situation. Test performed by chemiluminescent immunoassay using [employer]. Tacrolimus (Bld) [Mass/Vol]O rdered By: Brayan Malloy on 11-11-2024 Interpretation and review of laboratory results Normal [facility] Tacrolimus Bld-mCncon 2024 Tacrolimus (Bld) [Mass/Vol] 11.5 ng/mL Normal 5.0-20.0 [facility] Comment on above: Order Comment: Mary flores Type: BLOOD SPECIMENOrdering Facility: [facility] Address: [address] [place] [address] Result Comment: Keiko vidualized target levels for a given patient will [...] situation. Test performed by chemiluminescent immunoassay using [employer] i. Performed By: #### 1 1253-2 ####[facility] LABCLIA [id number] [place] [address] [place] Albumin SerPl-[facility] 025 Albumin [Mass/Vol] 3.4 g/dL Low 3.9-4.9 [facility] Comment on above: Order Comment: Mary flores Type: BLOOD SPECIMENOrdering Facility: [facility] Address: [address] [place] [address] Performed By: #### 1 751-7, 2777-1 ####[facility] LABORATORYCLIA [id number] [place] [address] [place] Basic metabolic 2000 panelon 11-08-2024 GFR/1.73 sq M.predicted among non-blacks MDRD (S/P/Bld) [Vol rate/Area] 48 mL/min/{1.73_m2} Low - PINF [facility] Comment on above: Estimated Glomerular Filtration Rate (eGFR) is calculated using the 2020 CKD-EPI creatinine equation. This equation utilizes serum creatinine, sex, and age as parameters. The creatinine assay has traceable calibration to isotope dilution-mass spectrometry. Refer to KDIGO guidelines for clinical interpretation. In patients with unstable renal function, e.g. those with acute kidney injury, the eGFR may not accurately reflect actual GFR. Anion gap [Moles/Vol] 11 mmol/L Normal 8-15 [facility] [place] Comment on above: Order Comment: Speci men Type: BLOOD SPECIMENOrdering Facility: [facility] Address: [address] [place] [address] Performed By: #### 2 4321-2 ####[facility] LABORATORYCLIA [id number] [place] [address] [place] Calcium [Mass/Vol] 9.0 mg/dL Normal 8.5-10.2 [facility] Comment on above: Order Comment: Speci men Type: BLOOD SPECIMENOrdering Facility: [facility] Address: [address] [place] [address] Performed By: #### 2 4321-2 ####[facility] LABORATORYCLIA [id number] [place] [address] [place] Chloride [Moles/Vol] 97 mmol/L Low 98-107 [facility] Comment on above: Order Comment: Speci men Type: BLOOD SPECIMENOrdering Facility: [facility] Address: [address] [place] [address] Performed By: #### 2 4321-2 ####[facility] LABORATORYCLIA [id number] [place] [address] [place] CO2 [Moles/Vol] 27 mmol/L Normal 22-30 [facility] Comment on above: Order Comment: Speci men Type: BLOOD SPECIMENOrdering Facility: [facility] Address: [address] [place] [address] Performed By: #### 2 4321-2 ####[facility] LABORATORYCLIA [id number] [place] [id number] [place] Creatinine [Mass/Vol] 1.55 mg/dL High 0.73-1.22 [facility] [place] Comment on above: Order Comment: Speci men Type: BLOOD SPECIMENOrdering Facility: [facility] Address: [address] [place] [address] Performed By: #### 2 4321-2 ####[facility] LABORATORYCLIA [id number] [place] [id number] [place] eGFRcr SerPlBld CKD-EPI 2020 48 mL/min/1.73m??? Low >=60 [facility] Comment on above: Order Comment: Speci men Type: BLOOD SPECIMENOrdering Facility: [facility] Address: [address] [place] [address] Result Comment: Varsha mated Glomerular Filtration Rate (eGFR) is calculated using the 2020 CKD-EPI creatinine equation. This equation utilizes serum creatinine, sex, and age as parameters. The creatinine assay has traceable calibration to isotope dilution-mass spectrometry. Refer to KDIGO guidelines for clinical interpretation. In patients with unstable renal function, e.g. those with acute kidney injury, the eGFR may not accurately reflect actual GFR. Performed By: #### 2 4321-2 ####[facility] LABORATORYCLIA [id number] [place] [address] [place] Glucose [Mass/Vol] 92 mg/dL Normal 74-99 [facility] Comment on above: Order Comment: Speci men Type: BLOOD SPECIMENOrdering Facility: [facility] Address: [address] [place] [address] Result Comment: The [place] Diabetes Association (ADA) provides guidance for cutoff [...] Standards of Medical Care in Diabetes 2016, [place] [employer]. Diabetes Care. 2016.39(Suppl 1). Performed By: #### 2 4321-2 ####[facility] LABORATORYCLIA [id number] [place] [id number] [place] Potassium [Moles/Vol] 4.6 mmol/L Normal 3.7-5.1 [facility] [place] Comment on above: Order Comment: Speci men Type: BLOOD SPECIMENOrdering Facility: [facility] Address: [address] [place] [address] Performed By: #### 2 4321-2 ####[facility] LABORATORYCLIA [id number] [place] [id number] [place] Sodium [Moles/Vol] 135 mmol/L Low 136-144 [facility] Comment on above: Order Comment: Speci men Type: BLOOD SPECIMENOrdering Facility: [facility] Address: [address] [place] [address] Performed By: #### 2 4321-2 ####[facility] LABORATORYCLIA [id number] [place] [id number] [place] Urea nitrogen [Mass/Vol] 17 mg/dL Normal 9-24 [facility] Comment on above: Order Comment: Speci men Type: BLOOD SPECIMENOrdering Facility: [facility] Address: [address] [place] [address] Performed By: #### 2 4321-2 ####[facility] LABORATORYCLIA [id number] [place] [id number] [place] [facility] BAS METAB 2000 PNL SERPL on 11-08-2024 EGFRCR SERPLBLD CKD-EPI 2020 48 Low - PINF [facility] Comment on above: Estimated Glomerular Filtration Rate (eGFR) is calculated using the 2020 CKD-EPI creatinine equation. This equation utilizes serum creatinine, sex, and age as parameters. The creatinine assay has traceable calibration to isotope dilution-mass spectrometry. Refer to KDIGO guidelines for clinical interpretation. In patients with unstable renal function, e.g. those with acute kidney injury, the eGFR may not accurately reflect actual GFR. Specimen Type: BLOOD SPECIMEN [facility] Address: [address] [place] [address] Original Ordering Provider: KELL DIAS CLINISYGARRICK [facility] PHOSPHATE SERPL-MCNCon 0 11-08-2024 [facility] PHOSPHATE SERPL-MCNC 4.4 mg/dL 2.7 - 4.8 mg/dL [facility] Laboratory - Chemistry and C hemistry - challengeon 11-08-2024 Albumin [Mass/Vol] 3.4 g/dL Low 3.9 - 4.9 g/dL [facility] Anion gap [Moles/Vol] 11 mmol/L 8 - 15 mmol/L [facility] Calcium [Mass/Vol] 9 mg/dL 8.5 - 10. 2 mg/dL [facility] Chloride [Moles/Vol] 97 mmol/L Low 98 - 10 7 mmol/L [facility] CO2 [Moles/Vol] 27 mmol/L 22 - 30 mmol/L [facility] Creatinine [Mass/Vol] 1.55 mg/dL High 0.73 - 1.22 mg/dL [facility] Glucose [Mass/Vol] 92 mg/dL 74 - 99 mg/dL [facility] Comment on above: The [place] Diabete s Association (ADA) provides guidance for cutoff values [...] Standards of Medical Care in Diabetes 2016, [place] [employer]. Diabetes Care. 2016.39(Suppl 1). Magnesium [Mass/Vol] 2.1 mg/dL 1.7 - 2 .3 mg/dL [facility] Potassium [Moles/Vol] 4.6 mmol/L 3.7 - 5.1 mmol/L [facility] Sodium [Moles/Vol] 135 mmol/L Low 136 - 144 mmol/L [facility] Urea nitrogen [Mass/Vol] 17 mg/dL 9 - 24 mg/dL [facility] Magnesium SerPl-ncon 11-08 Magnesium [Mass/Vol] 2.1 mg/dL Normal 1.7-2.3 [facility] Comment on above: Order Comment: Speci men Type: BLOOD SPECIMENOrdering Facility: [facility] Address: [address] [place] [address] Performed By: #### 1 9123-9 ####[facility] LABORATORYCLIA [id number] [place] [id number] [place] No Panel Informationon 11-08 Interpretation and review of laboratory results Abnormal [facility] Interpretation and review of laboratory results Normal [facility] Specimen Type: BLOOD SPECIMEN [facility] Address: [address] [place] [address] Original Ordering Provider: CAMILA TEJADA [facility] PHOSPHORUS INORGANICon 11-08 Phosphate [Mass/Vol] 4.4 mg/dL 2.7 - 4 .8 mg/dL [facility] Phosphate SerPl-mCncon 11-08 Phosphate [Mass/Vol] 4.4 mg/dL Normal 2.7-4.8 [facility] Comment on above: Order Comment: Speci men Type: BLOOD SPECIMENOrdering Facility: [facility] Address: [address] [place] [address] Performed By: #### 1 751-7, 2777-1 ####[facility] LABORATORYCLIA [id number] [place] [address] [place] C-REACTIVE PROTEINon 025 CRP [Mass/Vol] 17.2 mg/dL High NINF - 0.9 mg/dL [facility] CBC W Auto Differential pane l (Bld)on 11-07-2024 Anisocytosis Ql (Bld) Present [facility] Basophils (Bld) [#/Vol] 0.09 10*3/uL [facility] Basophils/100 WBC (Bld) 3 % [facility] Differential cell count method Nom (Bld) Manual [facility] Eosinophils (Bld) [#/Vol] 0.03 10*3/uL [facility] Eosinophils/100 WBC (Bld) 1 % [facility] Erythrocyte distribution width (RBC) [Ratio] 17.9 % High 11.5 - 15.0 % [facility] Hematocrit (Bld) [Volume fraction] 23.7 % Low 39.0 - 51.0 % [facility] Hemoglobin (Bld) [Mass/Vol] 7.5 g/dL Low 13.0 - 17.0 g/dL [facility] Interpretation and review of laboratory results Abnormal [facility] Lymphocytes (Bld) [#/Vol] 0.44 10*3/uL Low [facility] Lymphocytes/100 WBC (Bld) 14 % [facility] MCH (RBC) [Entitic mass] 30.2 pg 26.0 - 34.0 pg [facility] MCHC (RBC) [Mass/Vol] 31.6 g/dL 30.5 - 36.0 g/dL [facility] MCV (RBC) [Entitic vol] 95.6 fL 80.0 - 100.0 fL [facility] [place] % 1 % [facility] Monocytes (Bld) [#/Vol] 0.16 10*3/uL NINF [facility] Monocytes/100 WBC (Bld) 5 % [facility] Neutrophils (Bld) [#/Vol] 2.4 10*3/uL [facility] Neutrophils/100 WBC (Bld) 76 % [facility] Nucleated RBC (Bld) [#/Vol] NINF [facility] Nucleated RBC/100 WBC (Bld) [Ratio] 0 % /100 WBC [facility] Platelet mean volume (Bld) [Entitic vol] 9.3 fL 9.0 - 12.7 fL [facility] Platelets (Bld) [#/Vol] 580 10*3/uL High [facility] Platelets Estimate (Bld) [#/Vol] Increased [facility] RBC (Bld) [#/Vol] 2.48 10*6/uL Low 4.20 - 6.00 m/uL [facility] Red Cell Morph Reviewed: see result s of individual morphologies [facility] WBC (Bld) [#/Vol] 3.16 10*3/uL Low [facility] WBC Left Shift Ql (Bld) Present [facility] This is an appended report. These results have been appended to a previously verified report. [facility] Anisocytosis Ql (Bld) Present Normal [facility] [place] Comment on above: Order Comment: Speci men Type: BLOOD SPECIMENOrdering Facility: [facility] Address: [address] [place] [address] Performed By: #### 5 7021-8 ####[facility] LABORATORYCLIA [id number] [place] [address] [place] Basophils (Bld) [#/Vol] 0.09 10*3/uL Normal <0.11 [facility] Comment on above: Order Comment: Speci men Type: BLOOD SPECIMENOrdering Facility: [facility] Address: [address] [place] [address] Performed By: #### 5 7021-8 ####[facility] LABORATORYCLIA [id number] [place] [address] [place] Basophils/100 WBC (Bld) 3.0 % Normal [facility] Comment on above: Order Comment: Speci men Type: BLOOD SPECIMENOrdering Facility: [facility] Address: [address] [place] [address] Performed By: #### 5 7021-8 ####[facility] LABORATORYCLIA [id number] [place] [address] [place] Differential cell count method Nom (Bld) Manual Normal [facility] Comment on above: Order Comment: Speci men Type: BLOOD SPECIMENOrdering Facility: [facility] Address: [address] [place] [address] Performed By: #### 5 7021-8 ####[facility] LABORATORYCLIA [id number] [place] [address] [place] Eosinophils (Bld) [#/Vol] 0.03 10*3/uL Normal <0.46 [facility] Comment on above: Order Comment: Speci men Type: BLOOD SPECIMENOrdering Facility: [facility] Address: [address] [place] [address] Performed By: #### 5 7021-8 ####[facility] LABORATORYCLIA [id number] [place] [address] [place] Eosinophils/100 WBC (Bld) 1.0 % Normal [facility] Comment on above: Order Comment: Speci men Type: BLOOD SPECIMENOrdering Facility: [facility] Address: [address] [place] [address] Performed By: #### 5 7021-8 ####[facility] LABORATORYCLIA [id number] [place] [address] [place] Erythrocyte distribution width (RBC) [Ratio] 17.9 % High 11.5-15.0 [facility] Comment on above: Order Comment: Speci men Type: BLOOD SPECIMENOrdering Facility: [facility] Address: [address] [place] [address] Performed By: #### 5 7021-8 ####[facility] LABORATORYCLIA [id number] [place] [address] [place] Hematocrit (Bld) [Volume fraction] 23.7 % Low 39.0-51.0 [facility] Comment on above: Order Comment: Speci men Type: BLOOD SPECIMENOrdering Facility: [facility] Address: [address] [place] [address] Performed By: #### 5 7021-8 ####[facility] LABORATORYCLIA [id number] [place] [address] [place] Hemoglobin (Bld) [Mass/Vol] 7.5 g/dL Low 13.0-17.0 [facility] Comment on above: Order Comment: Speci men Type: BLOOD SPECIMENOrdering Facility: [facility] Address: [address] [place] [address] Performed By: #### 5 7021-8 ####[facility] LABORATORYCLIA [id number] [place] [address] [place] Lymphocytes (Bld) [#/Vol] 0.44 10*3/uL Low 1.00-4.00 [facility] Comment on above: Order Comment: Speci men Type: BLOOD SPECIMENOrdering Facility: [facility] Address: [address] [place] [address] Performed By: #### 5 7021-8 ####[facility] LABORATORYCLIA [id number] [place] [address] [place] Lymphocytes/100 WBC (Bld) 14.0 % Normal [facility] Comment on above: Order Comment: Speci men Type: BLOOD SPECIMENOrdering Facility: [facility] Address: [address] [place] [address] Performed By: #### 5 7021-8 ####[facility] LABORATORYCLIA [id number] [place] [id number] [place] MCH (RBC) [Entitic mass] 30.2 pg Normal 26.0-34.0 [facility] Comment on above: Order Comment: Speci men Type: BLOOD SPECIMENOrdering Facility: [facility] Address: [address] [place] [address] Performed By: #### 5 7021-8 ####[facility] LABORATORYCLIA [id number] [place] [address] [place] MCHC (RBC) [Mass/Vol] 31.6 g/dL Normal 30.5-36.0 [facility] Comment on above: Order Comment: Speci men Type: BLOOD SPECIMENOrdering Facility: [facility] Address: [address] [place] [address] Performed By: #### 5 7021-8 ####KARINA LABORATORYCLIA [id number] [place] [address] [place] MCV (RBC) [Entitic vol] 95.6 fL Normal 80.0-100.0 [facility] Comment on above: Order Comment: Speci men Type: BLOOD SPECIMENOrdering Facility: [facility] Address: [address] [place] [address] Performed By: #### 5 7021-8 ####KARINA LABORATORYCLIA [id number] [place] [id number] [place] Metamyelocytes/100 WBC (Bld) 1.0 % Normal [facility] Comment on above: Order Comment: Speci men Type: BLOOD SPECIMENOrdering Facility: [facility] Address: [address] [place] [address] Performed By: #### 5 7021-8 ####KARINA LABORATORYCLIA [id number] [place] [address] [place] Monocytes (Bld) [#/Vol] 0.16 10*3/uL Normal <0.87 [facility] Comment on above: Order Comment: Speci men Type: BLOOD SPECIMENOrdering Facility: [facility] Address: [address] [place] [address] Performed By: #### 5 7021-8 ####KARINA LABORATORYCLIA [id number] [place] [address] [place] Monocytes/100 WBC (Bld) 5.0 % Normal [facility] Comment on above: Order Comment: Speci men Type: BLOOD SPECIMENOrdering Facility: [facility] Address: [address] [place] [address] Performed By: #### 5 7021-8 ####KARINA LABORATORYCLIA [id number] [place] [address] [place] Neutrophils (Bld) [#/Vol] 2.40 10*3/uL Normal 1.45-7.50 [facility] Comment on above: Order Comment: Speci men Type: BLOOD SPECIMENOrdering Facility: [facility] Address: [address] [place] [address] Performed By: #### 5 7021-8 ####KARINA LABORATORYCLIA [id number] [place] [id number] [place] Neutrophils/100 WBC (Bld) 76.0 % Normal [facility] Comment on above: Order Comment: Speci men Type: BLOOD SPECIMENOrdering Facility: [facility] Address: [address] [place] [address] Performed By: #### 5 7021-8 ####KARINA LABORATORYCLIA [id number] [place] [address] [place] Nucleated RBC (Bld) [#/Vol] 10*3/uL Normal <0.01 [facility] Comment on above: Order Comment: Speci men Type: BLOOD SPECIMENOrdering Facility: [facility] Address: [address] [place] [address] Performed By: #### 5 7021-8 ####KARINA LABORATORYCLIA [id number] [place] [id number] [place] Nucleated RBC/100 WBC (Bld) [Ratio] 0.0 /100 WBC Normal [facility] Comment on above: Order Comment: Speci men Type: BLOOD SPECIMENOrdering Facility: [facility] Address: [address] [place] [address] Performed By: #### 5 7021-8 ####KARINA LABORATORYCLIA [id number] [place] [address] [place] Platelet mean volume (Bld) [Entitic vol] 9.3 fL Normal 9.0-12.7 [facility] Comment on above: Order Comment: Speci men Type: BLOOD SPECIMENOrdering Facility: [facility] Address: [address] [place] [address] Performed By: #### 5 7021-8 ####KARINA LABORATORYCLIA [id number] [place] [address] [place] Platelets (Bld) [#/Vol] 580 10*3/uL High 150-400 [facility] Comment on above: Order Comment: Speci men Type: BLOOD SPECIMENOrdering Facility: [facility] Address: [address] [place] [address] Performed By: #### 5 7021-8 ####KARINA LABORATORYCLIA [id number] [place] [address] [place] Platelets Estimate (Bld) [#/Vol] Increased Normal [facility] Comment on above: Order Comment: Speci men Type: BLOOD SPECIMENOrdering Facility: [facility] Address: [address] [place] [address] Performed By: #### 5 7021-8 ####KARINA LABORATORYCLIA [id number] [place] [address] [place] RBC (Bld) [#/Vol] 2.48 10*6/uL Low 4.20-6.00 [facility] Comment on above: Order Comment: Speci men Type: BLOOD SPECIMENOrdering Facility: [facility] Address: [address] [place] [address] Performed By: #### 5 7021-8 ####KARINA LABORATORYCLIA [id number] [place] [address] [place] RED CELL MORPH Reviewed: see result s of individual morphologies Normal [facility] Comment on above: Order Comment: Speci men Type: BLOOD SPECIMENOrdering Facility: [facility] Address: [address] [place] [address] Performed By: #### 5 7021-8 ####KARINA LABORATORYCLIA [id number] [place] [address] [place] WBC (Bld) [#/Vol] 3.16 10*3/uL Low 3.70-11.00 [facility] Comment on above: Order Comment: Speci men Type: BLOOD SPECIMENOrdering Facility: [facility] Address: [address] [place] [address] Performed By: #### 5 7021-8 ####KARINA LABORATORYCLIA [id number] [place] [address] [place] WBC Left Shift Ql (Bld) Present Normal [facility] Comment on above: Order Comment: Speci men Type: BLOOD SPECIMENOrdering Facility: [facility] Address: [address] [place] [address] Performed By: #### 5 7021-8 ####KARINA LABORATORYCLIA [id number] [place] [address] [place] [facility] PHOSPHATE SERPL-MCNCon 0 11-07-2024 [facility] PHOSPHATE SERPL-MCNC 4.6 mg/dL 2.7 - 4.8 mg/dL [facility] Specimen Type: BLOOD SPECIMEN [facility] Address: [address] [place] [address] Original Ordering Provider: DAVID CRUZ CLINISYGARRICK CRP SerPl-mCncon 11-07-2024 CRP [Mass/Vol] 17.2 mg/dL High <0.9 [facility] Comment on above: Order Comment: Speci men Type: BLOOD SPECIMENOrdering Facility: [facility] Address: [address] [place] [address] Performed By: #### 1 988-5 ####KARINA LABORATORYCLIA [id number] [place] [address] [place] Comprehensive metabolic 2000 panelon 11-07-2024 Albumin [Mass/Vol] 3 g/dL Low 3.9 - 4.9 g/dL [facility] ALP [Catalytic activity/Vol] 156 U/L High 38 - 113 U/L [facility] ALT [Catalytic activity/Vol] 12 U/L 10 - 54 U/L [facility] Anion gap [Moles/Vol] 16 mmol/L High 8 - 15 mmol/L [facility] AST [Catalytic activity/Vol] 18 U/L 14 - 40 U/L [facility] Bilirubin [Mass/Vol] 0.3 mg/dL 0.2 - 1 .3 mg/dL [facility] Calcium [Mass/Vol] 8.8 mg/dL 8.5 - 10. 2 mg/dL [facility] Chloride [Moles/Vol] 96 mmol/L Low 98 - 10 7 mmol/L [facility] CO2 [Moles/Vol] 24 mmol/L 22 - 30 mmol/L [facility] Creatinine [Mass/Vol] 1.5 mg/dL High 0.73 - 1.22 mg/dL [facility] GFR/1.73 sq M.predicted among non-blacks MDRD (S/P/Bld) [Vol rate/Area] 49 mL/min/{1.73_m2} Low - PINF [facility] Comment on above: Estimated Glomerular Filtration Rate (eGFR) is calculated using the 2020 CKD-EPI creatinine equation. This equation utilizes serum creatinine, sex, and age as parameters. The creatinine assay has traceable calibration to isotope dilution-mass spectrometry. Refer to KDIGO guidelines for clinical interpretation. In patients with unstable renal function, e.g. those with acute kidney injury, the eGFR may not accurately reflect actual GFR. Glucose [Mass/Vol] 77 mg/dL 74 - 99 mg/dL [facility] Comment on above: The [place] Diab[employer] [place] Association (ADA) provides guidance for cutoff values [...] Standards of Medical Care in Diabetes 2016, [place] [employer]. Diabetes Care. 2016.39(Suppl 1). Potassium [Moles/Vol] 4.8 mmol/L 3.7 - 5.1 mmol/L [facility] Protein [Mass/Vol] 5.4 g/dL Low 6.3 - 8.0 g/dL [facility] Sodium [Moles/Vol] 136 mmol/L 136 - 144 mmol/L [facility] Urea nitrogen [Mass/Vol] 16 mg/dL 9 - 24 mg/dL [facility] Albumin [Mass/Vol] 3.0 g/dL Low 3.9-4.9 [facility] Comment on above: Order Comment: Speci men Type: BLOOD SPECIMENOrdering Facility: [facility] Address: [address] [place] [address] Performed By: #### 2 4323-8 ####KARINA LABORATORYCLIA [id number] [place] [address] [place] ALP [Catalytic activity/Vol] 156 U/L High 38-113 [facility] Comment on above: Order Comment: Speci men Type: BLOOD SPECIMENOrdering Facility: [facility] Address: [address] [place] [address] Performed By: #### 2 4323-8 ####KARINA LABORATORYCLIA [id number] [place] [id number] [place] ALT [Catalytic activity/Vol] 12 U/L Normal 10-54 [facility] Comment on above: Order Comment: Speci men Type: BLOOD SPECIMENOrdering Facility: [facility] Address: [address] [place] [address] Performed By: #### 2 4323-8 ####KARINA LABORATORYCLIA [id number] [place] [address] [place] Anion gap [Moles/Vol] 16 mmol/L High 8-15 [facility] Comment on above: Order Comment: Speci men Type: BLOOD SPECIMENOrdering Facility: [facility] Address: [address] [place] [address] Performed By: #### 2 4323-8 ####KARINA LABORATORYCLIA [id number] [place] [address] [place] AST [Catalytic activity/Vol] 18 U/L Normal 14-40 [facility] Comment on above: Order Comment: Speci men Type: BLOOD SPECIMENOrdering Facility: [facility] Address: [address] [place] [address] Performed By: #### 2 4323-8 ####KARINA LABORATORYCLIA [id number] [place] [id number] [place] Bilirubin [Mass/Vol] 0.3 mg/dL Normal 0.2-1.3 [facility] Comment on above: Order Comment: Speci men Type: BLOOD SPECIMENOrdering Facility: [facility] Address: [address] [place] [address] Performed By: #### 2 4323-8 ####KARINA LABORATORYCLIA [id number] [place] [id number] [place] Calcium [Mass/Vol] 8.8 mg/dL Normal 8.5-10.2 [facility] Comment on above: Order Comment: Speci men Type: BLOOD SPECIMENOrdering Facility: [facility] Address: [address] [place] [address] Performed By: #### 2 4323-8 ####KARINA LABORATORYCLIA [id number] [place] [id number] [place] Chloride [Moles/Vol] 96 mmol/L Low 98-107 [facility] Comment on above: Order Comment: Speci men Type: BLOOD SPECIMENOrdering Facility: [facility] Address: [address] [place] [address] Performed By: #### 2 4323-8 ####KARINA LABORATORYCLIA [id number] [place] [id number] [place] CO2 [Moles/Vol] 24 mmol/L Normal 22-30 [facility] Comment on above: Order Comment: Speci men Type: BLOOD SPECIMENOrdering Facility: [facility] Address: [address] [place] [address] Performed By: #### 2 4323-8 ####KARINA LABORATORYCLIA [id number] [place] [id number] [place] Creatinine [Mass/Vol] 1.50 mg/dL High 0.73-1.22 [facility] Comment on above: Order Comment: Speci men Type: BLOOD SPECIMENOrdering Facility: [facility] Address: [address] [place] [address] Performed By: #### 2 4323-8 ####KARINA LABORATORYCLIA [id number] [place] [id number] [place] eGFRcr SerPlBld CKD-EPI 2020 49 mL/min/1.73m??? Low >=60 [facility] Comment on above: Order Comment: Speci men Type: BLOOD SPECIMENOrdering Facility: [facility] Address: [address] [place] [address] Result Comment: Varsha mated Glomerular Filtration Rate (eGFR) is calculated using the 2020 CKD-EPI creatinine equation. This equation utilizes serum creatinine, sex, and age as parameters. The creatinine assay has traceable calibration to isotope dilution-mass spectrometry. Refer to KDIGO guidelines for clinical interpretation. In patients with unstable renal function, e.g. those with acute kidney injury, the eGFR may not accurately reflect actual GFR. Performed By: #### 2 4323-8 ####KARINA LABORATORYCLIA [id number] [place] [address] [place] Glucose [Mass/Vol] 77 mg/dL Normal 74-99 [facility] Comment on above: Order Comment: Speci men Type: BLOOD SPECIMENOrdering Facility: [facility] Address: [address] [place] [address] Result Comment: The [place] Diabetes Association (ADA) provides guidance for cutoff [...] Standards of Medical Care in Diabetes 2016, [place] [employer]. Diabetes Care. 2016.39(Suppl 1). Performed By: #### 2 4323-8 ####KARINA LABORATORYCLIA [id number] [place] [address] [place] Potassium [Moles/Vol] 4.8 mmol/L Normal 3.7-5.1 [facility] Comment on above: Order Comment: Speci men Type: BLOOD SPECIMENOrdering Facility: [facility] Address: [address] [place] [address] Performed By: #### 2 4323-8 ####KARINA LABORATORYCLIA [id number] [place] [id number] [place] Protein [Mass/Vol] 5.4 g/dL Low 6.3-8.0 [facility] Comment on above: Order Comment: Speci men Type: BLOOD SPECIMENOrdering Facility: [facility] Address: [address] [place] [address] Performed By: #### 2 4323-8 ####KARINA LABORATORYCLIA [id number] [place] [address] [place] Sodium [Moles/Vol] 136 mmol/L Normal 136-144 [facility] Comment on above: Order Comment: Speci men Type: BLOOD SPECIMENOrdering Facility: [facility] Address: [address] [place] [address] Performed By: #### 2 4323-8 ####KARINA LABORATORYCLIA [id number] [place] [id number] [place] Urea nitrogen [Mass/Vol] 16 mg/dL Normal 9-24 [facility] Comment on above: Order Comment: Speci men Type: BLOOD SPECIMENOrdering Facility: [facility] Address: [address] [place] [address] Performed By: #### 2 4323-8 ####[facility] LABORATORYCLIA [id number] [place] [address] [place] GGTon 11-07-2024 Gamma glutamyl transferase [Catalytic activity/Vol] 98 U/L High 10 - 70 U/L [facility] GGT SerPl-cCncon 11-07-2024 Gamma glutamyl transferase [Catalytic activity/Vol] 98 U/L High 10-70 [facility] Comment on above: Order Comment: Speci men Type: BLOOD SPECIMENOrdering Facility: [facility] Address: [address] [place] [address] Performed By: #### 2 324-2 ####[facility] LABCLIA [id number] [address] [place] Gamma glutamyl transferase [ Catalytic activity/Vol]on 11-07-2024 Interpretation and review of laboratory results Abnormal [facility] MAGNESIUMon 11-07-2024 Magnesium [Mass/Vol] 2 mg/dL 1.7 - 2 .3 mg/dL [facility] Magnesium SerPl-mCncon 11-07 Magnesium [Mass/Vol] 2.0 mg/dL Normal 1.7-2.3 [facility] Comment on above: Order Comment: Speci men Type: BLOOD SPECIMENOrdering Facility: [facility] Address: [address] [place] [address] Performed By: #### 1 9123-9 ####KARINA LABORATORYCLIA [id number] [place] [id number] [place] Magnesium [Mass/Vol]on 11-07 Interpretation and review of laboratory results Normal [facility] NT PRO BNPon 11-07-2024 Natriuretic peptide.B prohormone N-Terminal [Mass/Vol] 365 pg/mL High NINF - 125 pg/mL [facility] NT-proBNP SerPl-mCncon 11-07 Natriuretic peptide.B prohormone N-Terminal [Mass/Vol] 365 pg/mL High <125 [facility] Comment on above: Order Comment: Speci men Type: BLOOD SPECIMENOrdering Facility: [facility] Address: [address] [place] [address] Performed By: #### 3 3762-6 ####KARINA LABORATORYCLIA [id number] [place] [id number] [place] Natriuretic peptide.B prohor dilshad N-Terminal [Mass/Vol]on 11-07-2024 Interpretation and review of laboratory results Abnormal [facility] No Panel Informationon 11-07 Interpretation and review of laboratory results Abnormal [facility] PHOSPHORUS INORGANICon 11-07 Phosphate [Mass/Vol] 4.6 mg/dL 2.7 - 4 .8 mg/dL [facility] Phosphate SerPl-mCncon 11-07 Phosphate [Mass/Vol] 4.6 mg/dL Normal 2.7-4.8 [facility] Comment on above: Order Comment: Speci men Type: BLOOD SPECIMENOrdering Facility: [facility] Address: [address] [place] [address] Performed By: #### 2 777-1 ####KARINA LABORATORYCLIA [id number] [place] [id number] [place] Phosphate [Mass/Vol]on 11-07 Interpretation and review of laboratory results Normal [facility] TACROLIMUS/FK-506 BLon 11-07 Tacrolimus (Bld) [Mass/Vol] 8.6 ng/mL 5.0 - 20.0 ng/mL [facility] Comment on above: Individualized targe t levels for a given patient [...] situation. Test performed by chemiluminescent immunoassay using [employer]. Tacrolimus (Bld) [Mass/Vol]o n 11-07-2024 Interpretation and review of laboratory results Normal [facility] Tacrolimus Bld-mCncon 2024 Tacrolimus (Bld) [Mass/Vol] 8.6 ng/mL Normal 5.0-20.0 [facility] Comment on above: Order Comment: Speci men Type: BLOOD SPECIMENOrdering Facility: [facility] Address: [address] [place] [address] Result Comment: Keiko vidualized target levels for a given patient will [...] situation. Test performed by chemiluminescent immunoassay using [employer] i. Performed By: #### 1 1253-2 ####[facility] LABCLIA [id number] [place] [address] [place] NURSING PROGon 11-06-2024 NURSING PROG Normal [facility] C-REACTIVE PROTEINon 025 CRP [Mass/Vol] 20.3 mg/dL High [facility]/dL [facility] CBC W Auto Differential pane l (Bld)on 11-04-2024 Anisocytosis Ql (Bld) Present [facility] Basophils (Bld) [#/Vol] 0.07 10*3/uL [facility] Basophils/100 WBC (Bld) 2 % [facility] Differential cell count method Nom (Bld) Manual [facility] Eosinophils (Bld) [#/Vol] 0.03 10*3/uL [facility] Eosinophils/100 WBC (Bld) 1 % [facility] Erythrocyte distribution width (RBC) [Ratio] 17.3 % High 11.5 - 15.0 % [facility] Hematocrit (Bld) [Volume fraction] 24.5 % Low 39.0 - 51.0 % [facility] Hemoglobin (Bld) [Mass/Vol] 7.6 g/dL Low 13.0 - 17.0 g/dL [facility] Interpretation and review of laboratory results Abnormal [facility] Lymphocytes (Bld) [#/Vol] 0.5 10*3/uL Low [facility] Lymphocytes/100 WBC (Bld) 15 % [facility] MCH (RBC) [Entitic mass] 29.7 pg 26.0 - 34.0 pg [facility] MCHC (RBC) [Mass/Vol] 31 g/dL 30.5 - 36.0 g/dL [facility] MCV (RBC) [Entitic vol] 95.7 fL 80.0 - 100.0 fL [facility] [place] % 2 % [facility] Monocytes (Bld) [#/Vol] 0.23 10*3/uL NINF [facility] Monocytes/100 WBC (Bld) 7 % [facility] Neutrophils (Bld) [#/Vol] 2.42 10*3/uL [facility] Neutrophils/100 WBC (Bld) 73 % [facility] Nucleated RBC (Bld) [#/Vol] [facility] Nucleated RBC/100 WBC (Bld) [Ratio] 0 % /100 WBC [facility] Ovalocytes LM Ql (Bld) Few Cl [facility] Platelet mean volume (Bld) [Entitic vol] 8.9 fL Low 9.0 - 12.7 fL [facility] Platelets (Bld) [#/Vol] 554 10*3/uL High [facility] Platelets Estimate (Bld) [#/Vol] Increased [facility] RBC (Bld) [#/Vol] 2.56 10*6/uL Low 4.20 - 6.00 m/uL [facility] Red Cell Morph Reviewed: see result s of individual morphologies [facility] WBC (Bld) [#/Vol] 3.31 10*3/uL Low [facility] WBC Left Shift Ql (Bld) Present [facility] This is an appended report. These results have been appended to a previously verified report. [facility] Anisocytosis Ql (Bld) Present Normal [facility] Comment on above: Order Comment: Speci men Type: BLOOD SPECIMENOrdering Facility: [facility] Address: [address] [place] [address] Performed By: #### 5 7021-8 ####[facility]AR[facility] LABORATORYCLIA [id number] [place] [address] [place] Basophils (Bld) [#/Vol] 0.07 10*3/uL Normal <0.11 [facility] Comment on above: Order Comment: Speci men Type: BLOOD SPECIMENOrdering Facility: [facility] Address: [address] [place] [address] Performed By: #### 5 7021-8 ####KAR[facility] LABORATORYCLIA [id number] [place] [address] [place] Basophils/100 WBC (Bld) 2.0 % Normal [facility] Comment on above: Order Comment: Speci men Type: BLOOD SPECIMENOrdering Facility: [facility] Address: [address] [place] [address] Performed By: #### 5 7021-8 ####[facility]AR[facility] LABORATORYCLIA [id number] [place] [address] [place] Differential cell count method Nom (Bld) Manual Normal [facility] Comment on above: Order Comment: Speci men Type: BLOOD SPECIMENOrdering Facility: [facility] Address: [address] [place] [address] Performed By: #### 5 7021-8 ####KAR[facility] LABORATORYCLIA [id number] [place] [address] [place] Eosinophils (Bld) [#/Vol] 0.03 10*3/uL Normal <0.46 [facility] Comment on above: Order Comment: Speci men Type: BLOOD SPECIMENOrdering Facility: [facility] Address: [address] [place] [address] Performed By: #### 5 7021-8 ####[facility]AR[facility] LABORATORYCLIA [id number] [place] [address] [place] Eosinophils/100 WBC (Bld) 1.0 % Normal [facility] Comment on above: Order Comment: Speci men Type: BLOOD SPECIMENOrdering Facility: [facility] Address: [address] [place] [address] Performed By: #### 5 7021-8 ####[facility] LABORATORYCLIA [id number] [place] [address] [place] Erythrocyte distribution width (RBC) [Ratio] 17.3 % High 11.5-15.0 [facility] Comment on above: Order Comment: Speci men Type: BLOOD SPECIMENOrdering Facility: [facility] Address: [address] [place] [address] Performed By: #### 5 7021-8 ####[facility] LABORATORYCLIA [id number] [place] [address] [place] Hematocrit (Bld) [Volume fraction] 24.5 % Low 39.0-51.0 [facility] Comment on above: Order Comment: Speci men Type: BLOOD SPECIMENOrdering Facility: [facility] Address: [address] [place] [address] Performed By: #### 5 7021-8 ####[facility] LABORATORYCLIA [id number] [place] [address] [place] Hemoglobin (Bld) [Mass/Vol] 7.6 g/dL Low 13.0-17.0 [facility] Comment on above: Order Comment: Speci men Type: BLOOD SPECIMENOrdering Facility: [facility] Address: [address] [place] [address] Performed By: #### 5 7021-8 ####[facility] LABORATORYCLIA [id number] [place] [address] [place] Lymphocytes (Bld) [#/Vol] 0.50 10*3/uL Low 1.00-4.00 [facility] Comment on above: Order Comment: Speci men Type: BLOOD SPECIMENOrdering Facility: [facility] Address: [address] [place] [address] Performed By: #### 5 7021-8 ####[facility] LABORATORYCLIA [id number] [place] [address] [place] Lymphocytes/100 WBC (Bld) 15.0 % Normal [facility] Comment on above: Order Comment: Speci men Type: BLOOD SPECIMENOrdering Facility: [facility] Address: [address] [place] [address] Performed By: #### 5 7021-8 ####[facility] LABORATORYCLIA [id number] [place] [address] [place] MCH (RBC) [Entitic mass] 29.7 pg Normal 26.0-34.0 [facility] Comment on above: Order Comment: Speci men Type: BLOOD SPECIMENOrdering Facility: [facility] Address: [address] [place] [address] Performed By: #### 5 7021-8 ####[facility] LABORATORYCLIA [id number] [place] [address] [place] MCHC (RBC) [Mass/Vol] 31.0 g/dL Normal 30.5-36.0 [facility] [place] Comment on above: Order Comment: Speci men Type: BLOOD SPECIMENOrdering Facility: [facility] Address: [address] [place] [address] Performed By: #### 5 7021-8 ####KARINA LABORATORYCLIA [id number] [place] [address] [place] MCV (RBC) [Entitic vol] 95.7 fL Normal 80.0-100.0 [facility] Comment on above: Order Comment: Speci men Type: BLOOD SPECIMENOrdering Facility: [facility] Address: [address] [place] [address] Performed By: #### 5 7021-8 ####KARINA LABORATORYCLIA [id number] [place] [address] [place] Metamyelocytes/100 WBC (Bld) 2.0 % Normal [facility] Comment on above: Order Comment: Speci men Type: BLOOD SPECIMENOrdering Facility: [facility] Address: [address] [place] [address] Performed By: #### 5 7021-8 ####KARINA LABORATORYCLIA [id number] [place] [address] [place] Monocytes (Bld) [#/Vol] 0.23 10*3/uL Normal <0.87 [facility] Comment on above: Order Comment: Speci men Type: BLOOD SPECIMENOrdering Facility: [facility] Address: [address] [place] [address] Performed By: #### 5 7021-8 ####KARINA LABORATORYCLIA [id number] [place] [id number] [place] Monocytes/100 WBC (Bld) 7.0 % Normal [facility] Comment on above: Order Comment: Speci men Type: BLOOD SPECIMENOrdering Facility: [facility] Address: [address] [place] [address] Performed By: #### 5 7021-8 ####KARINA LABORATORYCLIA [id number] [place] [address] [place] Neutrophils (Bld) [#/Vol] 2.42 10*3/uL Normal 1.45-7.50 [facility] Comment on above: Order Comment: Speci men Type: BLOOD SPECIMENOrdering Facility: [facility] Address: [address] [place] [address] Performed By: #### 5 7021-8 ####KARINA LABORATORYCLIA [id number] [place] [address] [place] Neutrophils/100 WBC (Bld) 73.0 % Normal [facility] Comment on above: Order Comment: Speci men Type: BLOOD SPECIMENOrdering Facility: [facility] Address: [address] [place] [address] Performed By: #### 5 7021-8 ####KARINA LABORATORYCLIA [id number] [place] [address] [place] Nucleated RBC (Bld) [#/Vol] 10*3/uL Normal <0.01 [facility] Comment on above: Order Comment: Speci men Type: BLOOD SPECIMENOrdering Facility: [facility] Address: [address] [place] [address] Performed By: #### 5 7021-8 ####KARINA LABORATORYCLIA [id number] [place] [address] [place] Nucleated RBC/100 WBC (Bld) [Ratio] 0.0 /100 WBC Normal [facility] Comment on above: Order Comment: Speci men Type: BLOOD SPECIMENOrdering Facility: [facility] Address: [address] [place] [address] Performed By: #### 5 7021-8 ####KARINA LABORATORYCLIA [id number] [place] [address] [place] Ovalocytes LM Ql (Bld) Few Normal Cl [facility] Comment on above: Order Comment: Speci men Type: BLOOD SPECIMENOrdering Facility: [facility] Address: [address] [place] [address] Performed By: #### 5 7021-8 ####KARINA LABORATORYCLIA [id number] [place] [id number] [place] Platelet mean volume (Bld) [Entitic vol] 8.9 fL Low 9.0-12.7 [facility] Comment on above: Order Comment: Speci men Type: BLOOD SPECIMENOrdering Facility: [facility] Address: [address] [place] [address] Performed By: #### 5 7021-8 ####KARINA LABORATORYCLIA [id number] [place] [id number] [place] Platelets (Bld) [#/Vol] 554 10*3/uL High 150-400 [facility] Comment on above: Order Comment: Speci men Type: BLOOD SPECIMENOrdering Facility: [facility] Address: [address] [place] [address] Performed By: #### 5 7021-8 ####KARINA LABORATORYCLIA [id number] [place] [id number] [place] Platelets Estimate (Bld) [#/Vol] Increased Normal [facility] Comment on above: Order Comment: Speci men Type: BLOOD SPECIMENOrdering Facility: [facility] Address: [address] [place] [address] Performed By: #### 5 7021-8 ####KARINA LABORATORYCLIA [id number] [place] [id number] [place] RBC (Bld) [#/Vol] 2.56 10*6/uL Low 4.20-6.00 [facility] Comment on above: Order Comment: Speci men Type: BLOOD SPECIMENOrdering Facility: [facility] Address: [address] [place] [address] Performed By: #### 5 7021-8 ####KARINA LABORATORYCLIA [id number] [place] [address] [place] RED CELL MORPH Reviewed: see result s of individual morphologies Normal [facility] Comment on above: Order Comment: Speci men Type: BLOOD SPECIMENOrdering Facility: [facility] Address: [address] [place] [address] Performed By: #### 5 7021-8 ####KARINA LABORATORYCLIA [id number] [place] [address] [place] WBC (Bld) [#/Vol] 3.31 10*3/uL Low 3.70-11.00 [facility] Comment on above: Order Comment: Speci men Type: BLOOD SPECIMENOrdering Facility: [facility] Address: [address] [place] [address] Performed By: #### 5 7021-8 ####KARINA LABORATORYCLIA [id number] [place] [address] [place] WBC Left Shift Ql (Bld) Present Normal [facility] Comment on above: Order Comment: Speci men Type: BLOOD SPECIMENOrdering Facility: [facility] Address: [address] [place] [address] Performed By: #### 5 7021-8 ####KARINA LABORATORYCLIA [id number] [place] [address] [place] [facility] BACTERIA SPEC ANAEROBE C [facility] 11-04-2024 [facility] BACTERIA SPEC ANAEROBE CULT CULTURE, ANAEROBE: Negative for anaerobes. [facility] Original Ordering Provider: ROSALINDA TEJADA [facility] NT-PROBNP SERPL-MCNCon 0 11-04-2024 Natriuretic peptide B (Bld) [Mass/Vol] 444 pg/mL High NINF - 125 pg/mL [facility] Specimen Type: BLOOD SPECIMEN [facility] Address: [address] [place] [address] Original Ordering Provider: DAVID CRUZ [facility] CK SerPl-cCncon 11-04-2024 CK [Catalytic activity/Vol] 10 U/L Low 51-298 [facility] Comment on above: Order Comment: Speci men Type: BLOOD SPECIMENOrdering Facility: [facility] Address: [address] [place] [address] Performed By: #### 2 157-6 ####KARINA LABORATORYCLIA [id number] [address] [place] OF [facility] CREATINE KINASE/CKon 025 CK [Catalytic activity/Vol] 10 U/L Low 51 - 298 U/L [facility] CRP SerPl-mCncon 11-04-2024 CRP [Mass/Vol] 20.3 mg/dL High <0.9 [facility] Comment on above: Order Comment: Speci men Type: BLOOD SPECIMENOrdering Facility: [facility] Address: [address] [place] [address] Performed By: #### 1 988-5 ####KARINA LABORATORYCLIA [id number] [address] [place] CYTOMEGALOVIRUS (CMV) DNA, Q UANTITATIVE PCR, [facility] 11-04-2024 CMV DNA JESSICA+probe Qn (P) Not detected Not Detected [facility] Interpretation and review of laboratory results Normal [facility] sav CMV is an in v itro nucleic acid amplification test for the quantitation of cytomegalovirus (CMV) DNA in human EDTA plasma. The linear range of the assay is 34.5 to 10,000,000 IU/mL (1.54 - 7.00 log IU/mL). The lower limit of detection of the assay is 34.5 IU/mL. [facility] CMV DNA JESSICA+probe Qn (P) Not detected Normal Not Detected [facility] Comment on above: Order Comment: Speci men Type: BLOOD SPECIMENOrdering Facility: [facility] Address: [address] [place] [address] Performed By: #### C MVQNT ####[facility] LABCLIA [id number] [address] [place] Comprehensive metabolic 2000 panelon 11-04-2024 Albumin [Mass/Vol] 2.6 g/dL Low 3.9 - 4.9 g/dL [facility] ALP [Catalytic activity/Vol] 165 U/L High 38 - 113 U/L [facility] ALT [Catalytic activity/Vol] 10 U/L 10 - 54 U/L [facility] Anion gap [Moles/Vol] 11 mmol/L 8 - 15 mmol/L [facility] AST [Catalytic activity/Vol] 17 U/L 14 - 40 U/L [facility] Bilirubin [Mass/Vol] 0.3 mg/dL 0.2 - 1 .3 mg/dL [facility] Calcium [Mass/Vol] 8.5 mg/dL 8.5 - 10. 2 mg/dL [facility] Chloride [Moles/Vol] 98 mmol/L 98 - 10 7 mmol/L [facility] CO2 [Moles/Vol] 25 mmol/L 22 - 30 mmol/L [facility] Creatinine [Mass/Vol] 0.99 mg/dL 0.73 - 1.22 mg/dL [facility] GFR/1.73 sq M.predicted among non-blacks MDRD (S/P/Bld) [Vol rate/Area] 81 mL/min/{1.73_m2} - PINF [facility] Comment on above: Estimated Glomerular Filtration Rate (eGFR) is calculated using the 2020 CKD-EPI creatinine equation. This equation utilizes serum creatinine, sex, and age as parameters. The creatinine assay has traceable calibration to isotope dilution-mass spectrometry. Refer to KDIGO guidelines for clinical interpretation. In patients with unstable renal function, e.g. those with acute kidney injury, the eGFR may not accurately reflect actual GFR. Glucose [Mass/Vol] 88 mg/dL 74 - 99 mg/dL [facility] Comment on above: The [place] Diab[employer] [place] Association (ADA) provides guidance for cutoff values [...] Standards of Medical Care in Diabetes 2016, [place] [employer]. Diabetes Care. 2016.39(Suppl 1). Potassium [Moles/Vol] 5 mmol/L 3.7 - 5.1 mmol/L [facility] Protein [Mass/Vol] 5.2 g/dL Low 6.3 - 8.0 g/dL [facility] Sodium [Moles/Vol] 134 mmol/L Low 136 - 144 mmol/L [facility] Urea nitrogen [Mass/Vol] 10 mg/dL 9 - 24 mg/dL [facility] Albumin [Mass/Vol] 2.6 g/dL Low 3.9-4.9 [facility] Comment on above: Order Comment: Speci men Type: BLOOD SPECIMENOrdering Facility: [facility] Address: [address] [place] [address] Performed By: #### 2 4323-8 ####KARINA LABORATORYCLIA [id number] [place] [address] [place] ALP [Catalytic activity/Vol] 165 U/L High 38-113 [facility] Comment on above: Order Comment: Speci men Type: BLOOD SPECIMENOrdering Facility: [facility] Address: [address] [place] [address] Performed By: #### 2 4323-8 ####KARINA LABORATORYCLIA [id number] [place] [id number] [place] ALT [Catalytic activity/Vol] 10 U/L Normal 10-54 [facility] Comment on above: Order Comment: Speci men Type: BLOOD SPECIMENOrdering Facility: [facility] Address: [address] [place] [address] Performed By: #### 2 4323-8 ####KARINA LABORATORYCLIA [id number] [place] [address] [place] Anion gap [Moles/Vol] 11 mmol/L Normal 8-15 [facility] [place] Comment on above: Order Comment: Speci men Type: BLOOD SPECIMENOrdering Facility: [facility] Address: [address] [place] [address] Performed By: #### 2 4323-8 ####KARINA LABORATORYCLIA [id number] [place] [address] [place] AST [Catalytic activity/Vol] 17 U/L Normal 14-40 [facility] Comment on above: Order Comment: Speci men Type: BLOOD SPECIMENOrdering Facility: [facility] Address: [address] [place] [address] Performed By: #### 2 4323-8 ####KARINA LABORATORYCLIA [id number] [place] [id number] [place] Bilirubin [Mass/Vol] 0.3 mg/dL Normal 0.2-1.3 [facility] Comment on above: Order Comment: Speci men Type: BLOOD SPECIMENOrdering Facility: [facility] Address: [address] [place] [address] Performed By: #### 2 4323-8 ####KARINA LABORATORYCLIA [id number] [place] [address] [place] Calcium [Mass/Vol] 8.5 mg/dL Normal 8.5-10.2 [facility] Comment on above: Order Comment: Speci men Type: BLOOD SPECIMENOrdering Facility: [facility] Address: [address] [place] [address] Performed By: #### 2 4323-8 ####KARINA LABORATORYCLIA [id number] [place] [id number] [place] Chloride [Moles/Vol] 98 mmol/L Normal 98-107 [facility] Comment on above: Order Comment: Speci men Type: BLOOD SPECIMENOrdering Facility: [facility] Address: [address] [place] [address] Performed By: #### 2 4323-8 ####KARINA LABORATORYCLIA [id number] [place] [id number] [place] CO2 [Moles/Vol] 25 mmol/L Normal 22-30 [facility] Comment on above: Order Comment: Speci men Type: BLOOD SPECIMENOrdering Facility: [facility] Address: [address] [place] [address] Performed By: #### 2 4323-8 ####KARINA LABORATORYCLIA [id number] [place] [id number] [place] Creatinine [Mass/Vol] 0.99 mg/dL Normal 0.73-1.22 [facility] [place] Comment on above: Order Comment: Speci men Type: BLOOD SPECIMENOrdering Facility: [facility] Address: [address] [place] [address] Performed By: #### 2 4323-8 ####KARINA LABORATORYCLIA [id number] [place] [id number] [place] eGFRcr SerPlBld CKD-EPI 2020 81 mL/min/1.73m??? Normal >=60 [facility] Comment on above: Order Comment: Speci men Type: BLOOD SPECIMENOrdering Facility: [facility] Address: [address] [place] [address] Result Comment: Varsha mated Glomerular Filtration Rate (eGFR) is calculated using the 2020 CKD-EPI creatinine equation. This equation utilizes serum creatinine, sex, and age as parameters. The creatinine assay has traceable calibration to isotope dilution-mass spectrometry. Refer to KDIGO guidelines for clinical interpretation. In patients with unstable renal function, e.g. those with acute kidney injury, the eGFR may not accurately reflect actual GFR. Performed By: #### 2 4323-8 ####DEONROLF LABORATORYCLIA [id number] [place] [id number] [place] Glucose [Mass/Vol] 88 mg/dL Normal 74-99 [facility] Comment on above: Order Comment: Speci men Type: BLOOD SPECIMENOrdering Facility: [facility] Address: [address] [place] [address] Result Comment: The [place] Diabetes Association (ADA) provides guidance for cutoff [...] Standards of Medical Care in Diabetes 2016, [place] [employer]. Diabetes Care. 2016.39(Suppl 1). Performed By: #### 2 4323-8 ####KARINA LABORATORYCLIA [id number] [place] [address] [place] Potassium [Moles/Vol] 5.0 mmol/L Normal 3.7-5.1 [facility] [place] Comment on above: Order Comment: Speci men Type: BLOOD SPECIMENOrdering Facility: [facility] Address: [address] [place] [address] Performed By: #### 2 4323-8 ####KARINA LABORATORYCLIA [id number] [place] [address] [place] Protein [Mass/Vol] 5.2 g/dL Low 6.3-8.0 [facility] Comment on above: Order Comment: Speci men Type: BLOOD SPECIMENOrdering Facility: [facility] Address: [address] [place] [address] Performed By: #### 2 4323-8 ####KARINA LABORATORYCLIA [id number] [place] [id number] [place] Sodium [Moles/Vol] 134 mmol/L Low 136-144 [facility] Comment on above: Order Comment: Speci men Type: BLOOD SPECIMENOrdering Facility: [facility] Address: [address] [place] [address] Performed By: #### 2 4323-8 ####KARINA LABORATORYCLIA [id number] [place] [id number] [place] Urea nitrogen [Mass/Vol] 10 mg/dL Normal 9-24 [facility] Comment on above: Order Comment: Speci men Type: BLOOD SPECIMENOrdering Facility: [facility] Address: [address] [place] [address] Performed By: #### 2 4323-8 ####KARINA LABORATORYCLIA [id number] [place] [address] [place] GGTon 11-04-2024 Gamma glutamyl transferase [Catalytic activity/Vol] 114 U/L High 10 - 70 U/L [facility] GGT SerPl-cCncon 11-04-2024 Gamma glutamyl transferase [Catalytic activity/Vol] 114 U/L High 10-70 [facility] Comment on above: Order Comment: Speci men Type: BLOOD SPECIMENOrdering Facility: [facility] Address: [address] [place] [address] Performed By: #### 2 324-2 ####[facility] LABCLIA [id number] [place] [address] [place] Gamma glutamyl transferase [ Catalytic activity/Vol]on 11-04-2024 Interpretation and review of laboratory results Abnormal [facility] MAGNESIUMon 11-04-2024 Magnesium [Mass/Vol] 1.6 mg/dL Low 1.7 - 2 .3 mg/dL [facility] Magnesium SerPl-mCncon 11-04 Magnesium [Mass/Vol] 1.6 mg/dL Low 1.7-2.3 [facility] Comment on above: Order Comment: Speci men Type: BLOOD SPECIMENOrdering Facility: [facility] Address: [address] [place] [address] Performed By: #### 1 9123-9 ####KARINA LABORATORYCLIA [id number] [place] [id number] [place] NT PRO BNPon 11-04-2024 Natriuretic peptide.B prohormone N-Terminal [Mass/Vol] 444 pg/mL High NINF - 125 pg/mL [facility] NT-proBNP SerPl-mCncon 11-04 Natriuretic peptide.B prohormone N-Terminal [Mass/Vol] 444 pg/mL High <125 [facility] Comment on above: Order Comment: Speci men Type: BLOOD SPECIMENOrdering Facility: [facility] Address: [address] [place] [address] Performed By: #### 3 3762-6 ####KARINA LABORATORYCLIA [id number] [place] [address] [place] No Panel Informationon 11-04 Interpretation and review of laboratory results Abnormal [facility] Interpretation and review of laboratory results Abnormal [facility] PHOSPHORUS INORGANICon 11-04 Phosphate [Mass/Vol] 4.9 mg/dL High 2.7 - 4 .8 mg/dL [facility] Phosphate SerPl-mCncon 11-04 Phosphate [Mass/Vol] 4.9 mg/dL High 2.7-4.8 [facility] Comment on above: Order Comment: Speci men Type: BLOOD SPECIMENOrdering Facility: [facility] Address: [address] [place] [address] Performed By: #### 2 777-1 ####KARINA LABORATORYCLIA [id number] [place] [id number] [place] Phosphate [Mass/Vol]on 11-04 Interpretation and review of laboratory results Abnormal [facility] TACROLIMUS/FK-506 BLOrdered By: Troy Roman on 11-04-2024 Tacrolimus (Bld) [Mass/Vol] 13.8 ng/mL 5.0 - 20.0 ng/mL [facility] Comment on above: Individualized targe t levels for a given patient [...] situation. Test performed by chemiluminescent immunoassay using [employer] i. Tacrolimus (Bld) [Mass/Vol]O rdered By: Troy Roman on 11-04-2024 Interpretation and review of laboratory results Normal [facility] Tacrolimus Bld-mCncon 2024 Tacrolimus (Bld) [Mass/Vol] 13.8 ng/mL Normal 5.0-20.0 [facility] Comment on above: Order Comment: Speci men Type: BLOOD SPECIMENOrdering Facility: [facility] Address: [address] [place] [address] Result Comment: Keiko vidualized target levels for a given patient will [...] situation. Test performed by chemiluminescent immunoassay using [employer] i. Performed By: #### 1 1253-2 ####[facility] LABCLIA [id number] [place] [address] [place] CBC W Auto Differential pane l (Bld)on 11-02-2024 Anisocytosis Ql (Bld) Present [facility] Basophils (Bld) [#/Vol] 0 10*3/uL [facility] Basophils/100 WBC (Bld) 0 % [facility] Differential cell count method Nom (Bld) Manual [facility] Eosinophils (Bld) [#/Vol] 0 10*3/uL [facility] Eosinophils/100 WBC (Bld) 0 % [facility] Erythrocyte distribution width (RBC) [Ratio] 17.2 % High 11.5 - 15.0 % [facility] Hematocrit (Bld) [Volume fraction] 25.9 % Low 39.0 - 51.0 % [facility] Hemoglobin (Bld) [Mass/Vol] 8.3 g/dL Low 13.0 - 17.0 g/dL [facility] Interpretation and review of laboratory results Abnormal [facility] Lymphocytes (Bld) [#/Vol] 0.24 10*3/uL Low [facility] Lymphocytes/100 WBC (Bld) 6 % [facility] MCH (RBC) [Entitic mass] 30 pg 26.0 - 34.0 pg [facility] MCHC (RBC) [Mass/Vol] 32 g/dL 30.5 - 36.0 g/dL [facility] MCV (RBC) [Entitic vol] 93.5 fL 80.0 - 100.0 fL [facility] Monocytes (Bld) [#/Vol] 0.12 10*3/uL [facility] Monocytes/100 WBC (Bld) 3 % [facility] Neutrophils (Bld) [#/Vol] 3.69 10*3/uL [facility] Neutrophils/100 WBC (Bld) 91 % [facility] Nucleated RBC (Bld) [#/Vol] NINF [facility] Nucleated RBC/100 WBC (Bld) [Ratio] 0 % /100 WBC [facility] Ovalocytes LM Ql (Bld) Few Cl [facility] Platelet mean volume (Bld) [Entitic vol] 8.8 fL Low 9.0 - 12.7 fL [facility] Platelets (Bld) [#/Vol] 570 10*3/uL High [facility] Platelets Estimate (Bld) [#/Vol] Increased [facility] RBC (Bld) [#/Vol] 2.77 10*6/uL Low 4.20 - 6.00 m/uL [facility] Red Cell Morph Reviewed: see result s of individual morphologies [facility] WBC (Bld) [#/Vol] 4.05 10*3/uL [facility] This is an appended report. These results have been appended to a previously verified report. [facility] Anisocytosis Ql (Bld) Present Normal [facility] Comment on above: Order Comment: Speci men Type: BLOOD SPECIMENOrdering Facility: [facility] Address: [address] [place] [address] Performed By: #### 5 7021-8 ####KARINA LABORATORYCLIA [id number] [place] [address] [place] Basophils (Bld) [#/Vol] 0.00 10*3/uL Normal <0.11 [facility] Comment on above: Order Comment: Speci men Type: BLOOD SPECIMENOrdering Facility: [facility] Address: [address] [place] [address] Performed By: #### 5 7021-8 ####KARINA LABORATORYCLIA [id number] [place] [address] [place] Basophils/100 WBC (Bld) 0.0 % Normal [facility] Comment on above: Order Comment: Speci men Type: BLOOD SPECIMENOrdering Facility: [facility] Address: [address] [place] [address] Performed By: #### 5 7021-8 ####KARINA LABORATORYCLIA [id number] [place] [address] [place] Differential cell count method Nom (Bld) Manual Normal [facility] Comment on above: Order Comment: Speci men Type: BLOOD SPECIMENOrdering Facility: [facility] Address: [address] [place] [address] Performed By: #### 5 7021-8 ####KARINA LABORATORYCLIA [id number] [place] [address] [place] Eosinophils (Bld) [#/Vol] 0.00 10*3/uL Normal <0.46 [facility] Comment on above: Order Comment: Speci men Type: BLOOD SPECIMENOrdering Facility: [facility] Address: [address] [place] [address] Performed By: #### 5 7021-8 ####KARINA LABORATORYCLIA [id number] [place] [address] [place] Eosinophils/100 WBC (Bld) 0.0 % Normal [facility] Comment on above: Order Comment: Speci men Type: BLOOD SPECIMENOrdering Facility: [facility] Address: [address] [place] [address] Performed By: #### 5 7021-8 ####KARINA LABORATORYCLIA [id number] [place] [address] [place] Erythrocyte distribution width (RBC) [Ratio] 17.2 % High 11.5-15.0 [facility] Comment on above: Order Comment: Speci men Type: BLOOD SPECIMENOrdering Facility: [facility] Address: [address] [place] [address] Performed By: #### 5 7021-8 ####KARINA LABORATORYCLIA [id number] [place] [address] [place] Hematocrit (Bld) [Volume fraction] 25.9 % Low 39.0-51.0 [facility] Comment on above: Order Comment: Speci men Type: BLOOD SPECIMENOrdering Facility: [facility] Address: [address] [place] [address] Performed By: #### 5 7021-8 ####[facility] LABORATORYCLIA [id number] [place] [address] [place] Hemoglobin (Bld) [Mass/Vol] 8.3 g/dL Low 13.0-17.0 [facility] Comment on above: Order Comment: Speci men Type: BLOOD SPECIMENOrdering Facility: [facility] Address: [address] [place] [address] Performed By: #### 5 7021-8 ####[facility] LABORATORYCLIA [id number] [place] [address] [place] Lymphocytes (Bld) [#/Vol] 0.24 10*3/uL Low 1.00-4.00 [facility] Comment on above: Order Comment: Speci men Type: BLOOD SPECIMENOrdering Facility: [facility] Address: [address] [place] [address] Performed By: #### 5 7021-8 ####[facility] LABORATORYCLIA [id number] [place] [address] [place] Lymphocytes/100 WBC (Bld) 6.0 % Normal [facility] Comment on above: Order Comment: Speci men Type: BLOOD SPECIMENOrdering Facility: [facility] Address: [address] [place] [address] Performed By: #### 5 7021-8 ####[facility] LABORATORYCLIA [id number] [place] [address] [place] MCH (RBC) [Entitic mass] 30.0 pg Normal 26.0-34.0 [facility] Comment on above: Order Comment: Speci men Type: BLOOD SPECIMENOrdering Facility: [facility] Address: [address] [place] [address] Performed By: #### 5 7021-8 ####[facility] LABORATORYCLIA [id number] [place] [address] [place] MCHC (RBC) [Mass/Vol] 32.0 g/dL Normal 30.5-36.0 [facility] Comment on above: Order Comment: Speci men Type: BLOOD SPECIMENOrdering Facility: [facility] Address: [address] [place] [address] Performed By: #### 5 7021-8 ####[facility] LABORATORYCLIA [id number] [place] [address] [place] MCV (RBC) [Entitic vol] 93.5 fL Normal 80.0-100.0 [facility] Comment on above: Order Comment: Speci men Type: BLOOD SPECIMENOrdering Facility: [facility] Address: [address] [place] [address] Performed By: #### 5 7021-8 ####[facility] LABORATORYCLIA [id number] [place] [address] [place] Monocytes (Bld) [#/Vol] 0.12 10*3/uL Normal <0.87 [facility] Comment on above: Order Comment: Speci men Type: BLOOD SPECIMENOrdering Facility: [facility] Address: [address] [place] [address] Performed By: #### 5 7021-8 ####[facility] LABORATORYCLIA [id number] [place] [address] [place] Monocytes/100 WBC (Bld) 3.0 % Normal [facility] Comment on above: Order Comment: Speci men Type: BLOOD SPECIMENOrdering Facility: [facility] Address: [address] [place] [address] Performed By: #### 5 7021-8 ####[facility] LABORATORYCLIA [id number] [place] [id number] [place] Neutrophils (Bld) [#/Vol] 3.69 10*3/uL Normal 1.45-7.50 [facility] Comment on above: Order Comment: Speci men Type: BLOOD SPECIMENOrdering Facility: [facility] Address: [address] [place] [address] Performed By: #### 5 7021-8 ####[facility] LABORATORYCLIA [id number] [place] [address] [place] Neutrophils/100 WBC (Bld) 91.0 % Normal [facility] Comment on above: Order Comment: Speci men Type: BLOOD SPECIMENOrdering Facility: [facility] Address: [address] [place] [address] Performed By: #### 5 7021-8 ####[facility] LABORATORYCLIA [id number] [place] [address] [place] Nucleated RBC (Bld) [#/Vol] 10*3/uL Normal <0.01 [facility] Comment on above: Order Comment: Speci men Type: BLOOD SPECIMENOrdering Facility: [facility] Address: [address] [place] [address] Performed By: #### 5 7021-8 ####[facility] LABORATORYCLIA [id number] [place] [address] [place] Nucleated RBC/100 WBC (Bld) [Ratio] 0.0 /100 WBC Normal [facility] Comment on above: Order Comment: Speci men Type: BLOOD SPECIMENOrdering Facility: [facility] Address: [address] [place] [address] Performed By: #### 5 7021-8 ####[facility] LABORATORYCLIA [id number] [place] [address] [place] Ovalocytes LM Ql (Bld) Few Normal Cl [facility] Comment on above: Order Comment: Speci men Type: BLOOD SPECIMENOrdering Facility: [facility] Address: [address] [place] [address] Performed By: #### 5 7021-8 ####[facility] LABORATORYCLIA [id number] [place] [address] [place] Platelet mean volume (Bld) [Entitic vol] 8.8 fL Low 9.0-12.7 [facility] Comment on above: Order Comment: Speci men Type: BLOOD SPECIMENOrdering Facility: [facility] Address: [address] [place] [address] Performed By: #### 5 7021-8 ####[facility] LABORATORYCLIA [id number] [place] [address] [place] Platelets (Bld) [#/Vol] 570 10*3/uL High 150-400 [facility] Comment on above: Order Comment: Speci men Type: BLOOD SPECIMENOrdering Facility: [facility] Address: [address] [place] [address] Performed By: #### 5 7021-8 ####[facility] LABORATORYCLIA [id number] [place] [id number] [place] Platelets Estimate (Bld) [#/Vol] Increased Normal [facility] Comment on above: Order Comment: Speci men Type: BLOOD SPECIMENOrdering Facility: [facility] Address: [address] [place] [address] Performed By: #### 5 7021-8 ####[facility] LABORATORYCLIA [id number] [place] [address] [place] RBC (Bld) [#/Vol] 2.77 10*6/uL Low 4.20-6.00 [facility] Comment on above: Order Comment: Speci men Type: BLOOD SPECIMENOrdering Facility: [facility] Address: [address] [place] [address] Performed By: #### 5 7021-8 ####[facility] LABORATORYCLIA [id number] [place] [address] [place] RED CELL MORPH Reviewed: see result s of individual morphologies Normal [facility] Comment on above: Order Comment: Speci men Type: BLOOD SPECIMENOrdering Facility: [facility] Address: [address] [place] [address] Performed By: #### 5 7021-8 ####[facility] LABORATORYCLIA [id number] [place] [id number] [place] WBC (Bld) [#/Vol] 4.05 10*3/uL Normal 3.70-11.00 [facility] Comment on above: Order Comment: Speci men Type: BLOOD SPECIMENOrdering Facility: [facility] Address: [address] [place] [address] Performed By: #### 5 7021-8 ####[facility] LABORATORYCLIA [id number] [place] [address] [place] [facility] RENAL FUNC 2000 PNL SERP Mayito 11-02-2024 [facility] PHOSPHATE SERPL-MCNC 4.2 mg/dL 2.7 - 4.8 mg/dL [facility] EGFRCR SERPLBLD CKD-EPI 2020 93 - PINF [facility] Comment on above: Estimated Glomerular Filtration Rate (eGFR) is calculated using the 2020 CKD-EPI creatinine equation. This equation utilizes serum creatinine, sex, and age as parameters. The creatinine assay has traceable calibration to isotope dilution-mass spectrometry. Refer to KDIGO guidelines for clinical interpretation. In patients with unstable renal function, e.g. those with acute kidney injury, the eGFR may not accurately reflect actual GFR. Laboratory - Chemistry and C hemistry - challengeon 11-02-2024 Albumin [Mass/Vol] 2.6 g/dL Low 3.9 - 4.9 g/dL [facility] Anion gap [Moles/Vol] 10 mmol/L 8 - 15 mmol/L [facility] Calcium [Mass/Vol] 8.5 mg/dL 8.5 - 10. 2 mg/dL [facility] Chloride [Moles/Vol] 99 mmol/L 98 - 10 7 mmol/L [facility] CO2 [Moles/Vol] 25 mmol/L 22 - 30 mmol/L [facility] Creatinine [Mass/Vol] 0.84 mg/dL 0.73 - 1.22 mg/dL [facility] Glucose [Mass/Vol] 107 mg/dL High 74 - 99 mg/dL [facility] Comment on above: The [place] Di[employer] [place] Association (ADA) provides guidance for cutoff values [...] Standards of Medical Care in Diabetes 2016, [place] [employer]. Diabetes Care. 2016.39(Suppl 1). Magnesium [Mass/Vol] 1.5 mg/dL Low 1.7 - 2 .3 mg/dL [facility] Potassium [Moles/Vol] 4.7 mmol/L 3.7 - 5.1 mmol/L [facility] Sodium [Moles/Vol] 134 mmol/L Low 136 - 144 mmol/L [facility] Urea nitrogen [Mass/Vol] 7 mg/dL Low 9 - 24 mg/dL [facility] Magnesium SerPl-mCncon 11-02 Magnesium [Mass/Vol] 1.5 mg/dL Low 1.7-2.3 [facility] Comment on above: Order Comment: Speci men Type: BLOOD SPECIMENOrdering Facility: [facility] Address: [address] [place] [address] Performed By: #### 1 9123-9 ####[place] LABORATORYCLIA [id number] [address] No Panel Informationon 11-02 Interpretation and review of laboratory results Abnormal [facility] Specimen Type: BLOOD SPECIMEN [facility] Address: [address] [place] [address] Original Ordering Provider: CAMILA TEJADA [facility] Renal function 2000 panelon 11-02-2024 GFR/1.73 sq M.predicted among non-blacks MDRD (S/P/Bld) [Vol rate/Area] 93 mL/min/{1.73_m2} [facility] Comment on above: Estimated Glomerular Filtration Rate (eGFR) is calculated using the 2020 CKD-EPI creatinine equation. This equation utilizes serum creatinine, sex, and age as parameters. The creatinine assay has traceable calibration to isotope dilution-mass spectrometry. Refer to KDIGO guidelines for clinical interpretation. In patients with unstable renal function, e.g. those with acute kidney injury, the eGFR may not accurately reflect actual GFR. Phosphate [Mass/Vol] 4.2 mg/dL 2.7 - 4 .8 mg/dL [facility] Albumin [Mass/Vol] 2.6 g/dL Low 3.9-4.9 [facility] Comment on above: Order Comment: Speci men Type: BLOOD SPECIMENOrdering Facility: [facility] Address: [address] [place] [address] Performed By: #### 2 4362-6 ####[facility] LABORATORYCLIA [id number] [place] [address] [place] Anion gap [Moles/Vol] 10 mmol/L Normal 8-15 [facility] Comment on above: Order Comment: Speci men Type: BLOOD SPECIMENOrdering Facility: [facility] Address: [address] [place] [address] Performed By: #### 2 4362-6 ####[facility] LABORATORYCLIA [id number] [place] [address] [place] Calcium [Mass/Vol] 8.5 mg/dL Normal 8.5-10.2 [facility] Comment on above: Order Comment: Speci men Type: BLOOD SPECIMENOrdering Facility: [facility] Address: [address] [place] [address] Performed By: #### 2 4362-6 ####[facility] LABORATORYCLIA [id number] [place] [id number] [place] Chloride [Moles/Vol] 99 mmol/L Normal 98-107 [facility] Comment on above: Order Comment: Speci men Type: BLOOD SPECIMENOrdering Facility: [facility] Address: [address] [place] [address] Performed By: #### 2 4362-6 ####[facility] LABORATORYCLIA [id number] [place] [id number] [place] CO2 [Moles/Vol] 25 mmol/L Normal 22-30 [facility] Comment on above: Order Comment: Speci men Type: BLOOD SPECIMENOrdering Facility: [facility] Address: [address] [place] [address] Performed By: #### 2 4362-6 ####[facility] LABORATORYCLIA [id number] [place] [address] [place] Creatinine [Mass/Vol] 0.84 mg/dL Normal 0.73-1.22 [facility] Comment on above: Order Comment: Mary flores Type: BLOOD SPECIMENOrdering Facility: [facility] Address: [address] [place] [address] Performed By: #### 2 4362-6 ####[facility] LABORATORYCLIA [id number] [place] [id number] [place] eGFRcr SerPlBld CKD-EPI 2020 93 mL/min/1.73m??? Normal >=60 [facility] Comment on above: Order Comment: Dimitrydolores flores Type: BLOOD SPECIMENOrdering Facility: [facility] Address: [address] [place] [address] Result Comment: Varsha mated Glomerular Filtration Rate (eGFR) is calculated using the 2020 CKD-EPI creatinine equation. This equation utilizes serum creatinine, sex, and age as parameters. The creatinine assay has traceable calibration to isotope dilution-mass spectrometry. Refer to KDIGO guidelines for clinical interpretation. In patients with unstable renal function, e.g. those with acute kidney injury, the eGFR may not accurately reflect actual GFR. Performed By: #### 2 4362-6 ####[facility] LABORATORYCLIA [id number] [place] [id number] [place] Glucose [Mass/Vol] 107 mg/dL High 74-99 [facility] Comment on above: Order Comment: Mary flores Type: BLOOD SPECIMENOrdering Facility: [facility] Address: [address] [place] [address] Result Comment: The [place] Diabetes Association (ADA) provides guidance for cutoff [...] Standards of Medical Care in Diabetes 2016, [place] [employer]. Diabetes Care. 2016.39(Suppl 1). Performed By: #### 2 4362-6 ####[facility] LABORATORYCLIA [id number] [place] [id number] [place] Phosphate [Mass/Vol] 4.2 mg/dL Normal 2.7-4.8 [facility] Comment on above: Order Comment: Speci men Type: BLOOD SPECIMENOrdering Facility: [facility] Address: [address] [place] [address] Performed By: #### 2 4362-6 ####[facility] LABORATORYCLIA [id number] [place] [address] [place] Potassium [Moles/Vol] 4.7 mmol/L Normal 3.7-5.1 [facility] Comment on above: Order Comment: Speci men Type: BLOOD SPECIMENOrdering Facility: [facility] Address: [address] [place] [address] Performed By: #### 2 4362-6 ####[facility] LABORATORYCLIA [id number] [place] [address] [place] Sodium [Moles/Vol] 134 mmol/L Low 136-144 [facility] Comment on above: Order Comment: Speci men Type: BLOOD SPECIMENOrdering Facility: [facility] Address: [address] [place] [address] Performed By: #### 2 4362-6 ####[facility] LABORATORYCLIA [id number] [place] [id number] [place] Urea nitrogen [Mass/Vol] 7 mg/dL Low 9-24 [facility] Comment on above: Order Comment: Speci men Type: BLOOD SPECIMENOrdering Facility: [facility] Address: [address] [place] [address] Performed By: #### 2 4362-6 ####[facility] LABORATORYCLIA [id number] [place] [address] [place] CBC W Auto Differential pane l (Bld)on 11-01-2024 Anisocytosis Ql (Bld) Present [facility] Basophils (Bld) [#/Vol] 0.09 10*3/uL [facility] Basophils/100 WBC (Bld) 2 % [facility] Differential cell count method Nom (Bld) Manual [facility] Eosinophils (Bld) [#/Vol] 0.04 10*3/uL [facility] Eosinophils/100 WBC (Bld) 1 % [facility] Erythrocyte distribution width (RBC) [Ratio] 17.6 % High 11.5 - 15.0 % [facility] Hematocrit (Bld) [Volume fraction] 26.3 % Low 39.0 - 51.0 % [facility] Hemoglobin (Bld) [Mass/Vol] 8.2 g/dL Low 13.0 - 17.0 g/dL [facility] Interpretation and review of laboratory results Abnormal [facility] Lymphocytes (Bld) [#/Vol] 0.22 10*3/uL Low [facility] Lymphocytes/100 WBC (Bld) 5 % [facility] MCH (RBC) [Entitic mass] 29.8 pg 26.0 - 34.0 pg [facility] MCHC (RBC) [Mass/Vol] 31.2 g/dL 30.5 - 36.0 g/dL [facility] MCV (RBC) [Entitic vol] 95.6 fL 80.0 - 100.0 fL [facility] [place] % 1 % [facility] Monocytes (Bld) [#/Vol] 0.09 10*3/uL [facility] Monocytes/100 WBC (Bld) 2 % [facility] Neutrophils (Bld) [#/Vol] 3.9 10*3/uL [facility] Neutrophils/100 WBC (Bld) 89 % [facility] Nucleated RBC (Bld) [#/Vol] [facility] Nucleated RBC/100 WBC (Bld) [Ratio] 0 % /100 WBC [facility] Ovalocytes LM Ql (Bld) Few Cl [facility] Platelet mean volume (Bld) [Entitic vol] 9 fL 9.0 - 12.7 fL [facility] Platelets (Bld) [#/Vol] 565 10*3/uL High [facility] Platelets Estimate (Bld) [#/Vol] Increased [facility] RBC (Bld) [#/Vol] 2.75 10*6/uL Low 4.20 - 6.00 m/uL [facility] RBC Fragments Few Abnormal None Seen [facility] Red Cell Morph Reviewed: see result s of individual morphologies [facility] WBC (Bld) [#/Vol] 4.38 10*3/uL [facility] WBC Left Shift Ql (Bld) Present [facility] This is an appended report. These results have been appended to a previously verified report. [facility] Anisocytosis Ql (Bld) Present Normal [facility] Comment on above: Order Comment: Speci men Type: BLOOD SPECIMENOrdering Facility: [facility] Address: [address] [place] [address] Performed By: #### 5 7021-8 ####[facility] LABORATORYCLIA [id number] [place] [address] [place] Basophils (Bld) [#/Vol] 0.09 10*3/uL Normal <0.11 [facility] Comment on above: Order Comment: Speci men Type: BLOOD SPECIMENOrdering Facility: [facility] Address: [address] [place] [address] Performed By: #### 5 7021-8 ####[facility] LABORATORYCLIA [id number] [place] [address] [place] Basophils/100 WBC (Bld) 2.0 % Normal [facility] Comment on above: Order Comment: Speci men Type: BLOOD SPECIMENOrdering Facility: [facility] Address: [address] [place] [address] Performed By: #### 5 7021-8 ####[facility] LABORATORYCLIA [id number] [place] [id number] [place] Differential cell count method Nom (Bld) Manual Normal [facility] Comment on above: Order Comment: Speci men Type: BLOOD SPECIMENOrdering Facility: [facility] Address: [address] [place] [address] Performed By: #### 5 7021-8 ####[facility] LABORATORYCLIA [id number] [place] [address] [place] Eosinophils (Bld) [#/Vol] 0.04 10*3/uL Normal <0.46 [facility] Comment on above: Order Comment: Speci men Type: BLOOD SPECIMENOrdering Facility: [facility] Address: [address] [place] [address] Performed By: #### 5 7021-8 ####[facility] LABORATORYCLIA [id number] [place] [address] [place] Eosinophils/100 WBC (Bld) 1.0 % Normal [facility] Comment on above: Order Comment: Speci men Type: BLOOD SPECIMENOrdering Facility: [facility] Address: [address] [place] [address] Performed By: #### 5 7021-8 ####[facility] LABORATORYCLIA [id number] [place] [address] [place] Erythrocyte distribution width (RBC) [Ratio] 17.6 % High 11.5-15.0 [facility] Comment on above: Order Comment: Speci men Type: BLOOD SPECIMENOrdering Facility: [facility] Address: [address] [place] [address] Performed By: #### 5 7021-8 ####[facility] LABORATORYCLIA [id number] [place] [address] [place] Hematocrit (Bld) [Volume fraction] 26.3 % Low 39.0-51.0 [facility] Comment on above: Order Comment: Speci men Type: BLOOD SPECIMENOrdering Facility: [facility] Address: [address] [place] [address] Performed By: #### 5 7021-8 ####[facility] LABORATORYCLIA [id number] [place] [address] [place] Hemoglobin (Bld) [Mass/Vol] 8.2 g/dL Low 13.0-17.0 [facility] Comment on above: Order Comment: Speci men Type: BLOOD SPECIMENOrdering Facility: [facility] Address: [address] [place] [address] Performed By: #### 5 7021-8 ####[facility] LABORATORYCLIA [id number] [place] [address] [place] Lymphocytes (Bld) [#/Vol] 0.22 10*3/uL Low 1.00-4.00 [facility] Comment on above: Order Comment: Speci men Type: BLOOD SPECIMENOrdering Facility: [facility] Address: [address] [place] [address] Performed By: #### 5 7021-8 ####[facility] LABORATORYCLIA [id number] [place] [address] [place] Lymphocytes/100 WBC (Bld) 5.0 % Normal [facility] Comment on above: Order Comment: Speci men Type: BLOOD SPECIMENOrdering Facility: [facility] Address: [address] [place] [address] Performed By: #### 5 7021-8 ####[facility] LABORATORYCLIA [id number] [place] [address] [place] MCH (RBC) [Entitic mass] 29.8 pg Normal 26.0-34.0 [facility] Comment on above: Order Comment: Speci men Type: BLOOD SPECIMENOrdering Facility: [facility] Address: [address] [place] [address] Performed By: #### 5 7021-8 ####[facility] LABORATORYCLIA [id number] [place] [address] [place] MCHC (RBC) [Mass/Vol] 31.2 g/dL Normal 30.5-36.0 [facility] Comment on above: Order Comment: Speci men Type: BLOOD SPECIMENOrdering Facility: [facility] Address: [address] [place] [address] Performed By: #### 5 7021-8 ####[facility] LABORATORYCLIA [id number] [place] [address] [place] MCV (RBC) [Entitic vol] 95.6 fL Normal 80.0-100.0 [facility] Comment on above: Order Comment: Speci men Type: BLOOD SPECIMENOrdering Facility: [facility] Address: [address] [place] [address] Performed By: #### 5 7021-8 ####[facility] LABORATORYCLIA [id number] [place] [id number] [place] Metamyelocytes/100 WBC (Bld) 1.0 % Normal [facility] Comment on above: Order Comment: Speci men Type: BLOOD SPECIMENOrdering Facility: [facility] Address: [address] [place] [address] Performed By: #### 5 7021-8 ####[facility] LABORATORYCLIA [id number] [place] [address] [place] Monocytes (Bld) [#/Vol] 0.09 10*3/uL Normal <0.87 [facility] Comment on above: Order Comment: Speci men Type: BLOOD SPECIMENOrdering Facility: [facility] Address: [address] [place] [address] Performed By: #### 5 7021-8 ####[facility] LABORATORYCLIA [id number] [place] [address] [place] Monocytes/100 WBC (Bld) 2.0 % Normal [facility] Comment on above: Order Comment: Speci men Type: BLOOD SPECIMENOrdering Facility: [facility] Address: [address] [place] [address] Performed By: #### 5 7021-8 ####[facility] LABORATORYCLIA [id number] [place] [address] [place] Neutrophils (Bld) [#/Vol] 3.90 10*3/uL Normal 1.45-7.50 [facility] Comment on above: Order Comment: Speci men Type: BLOOD SPECIMENOrdering Facility: [facility] Address: [address] [place] [address] Performed By: #### 5 7021-8 ####[facility] LABORATORYCLIA [id number] [place] [id number] [place] Neutrophils/100 WBC (Bld) 89.0 % Normal [facility] Comment on above: Order Comment: Speci men Type: BLOOD SPECIMENOrdering Facility: [facility] Address: [address] [place] [address] Performed By: #### 5 7021-8 ####[facility] LABORATORYCLIA [id number] [place] [address] [place] Nucleated RBC (Bld) [#/Vol] 10*3/uL Normal <0.01 [facility] Comment on above: Order Comment: Speci men Type: BLOOD SPECIMENOrdering Facility: [facility] Address: [address] [place] [address] Performed By: #### 5 7021-8 ####[facility] LABORATORYCLIA [id number] [place] [address] [place] Nucleated RBC/100 WBC (Bld) [Ratio] 0.0 /100 WBC Normal [facility] Comment on above: Order Comment: Speci men Type: BLOOD SPECIMENOrdering Facility: [facility] Address: [address] [place] [address] Performed By: #### 5 7021-8 ####KARINA LABORATORYCLIA [id number] [place] [address] [place] Ovalocytes LM Ql (Bld) Few Normal Cl [facility] Comment on above: Order Comment: Speci men Type: BLOOD SPECIMENOrdering Facility: [facility] Address: [address] [place] [address] Performed By: #### 5 7021-8 ####KARINA LABORATORYCLIA [id number] [place] [address] [place] Platelet mean volume (Bld) [Entitic vol] 9.0 fL Normal 9.0-12.7 [facility] Comment on above: Order Comment: Speci men Type: BLOOD SPECIMENOrdering Facility: [facility] Address: [address] [place] [address] Performed By: #### 5 7021-8 ####KARINA LABORATORYCLIA [id number] [place] [address] [place] Platelets (Bld) [#/Vol] 565 10*3/uL High 150-400 [facility] Comment on above: Order Comment: Speci men Type: BLOOD SPECIMENOrdering Facility: [facility] Address: [address] [place] [address] Performed By: #### 5 7021-8 ####KARINA LABORATORYCLIA [id number] [place] [address] [place] Platelets Estimate (Bld) [#/Vol] Increased Normal [facility] Comment on above: Order Comment: Speci men Type: BLOOD SPECIMENOrdering Facility: [facility] Address: [address] [place] [address] Performed By: #### 5 7021-8 ####KARINA LABORATORYCLIA [id number] [place] [address] [place] RBC (Bld) [#/Vol] 2.75 10*6/uL Low 4.20-6.00 [facility] Comment on above: Order Comment: Speci men Type: BLOOD SPECIMENOrdering Facility: [facility] Address: [address] [place] [address] Performed By: #### 5 7021-8 ####KARINA LABORATORYCLIA [id number] [place] [address] [place] RBC FRAGMENTS Few Abnormal None Seen [facility] Comment on above: Order Comment: Speci men Type: BLOOD SPECIMENOrdering Facility: [facility] Address: [address] [place] [address] Performed By: #### 5 7021-8 ####KARINA LABORATORYCLIA [id number] [place] [address] [place] RED CELL MORPH Reviewed: see result s of individual morphologies Normal [facility] Comment on above: Order Comment: Speci men Type: BLOOD SPECIMENOrdering Facility: [facility] Address: [address] [place] [address] Performed By: #### 5 7021-8 ####KARINA LABORATORYCLIA [id number] [place] [address] [place] WBC (Bld) [#/Vol] 4.38 10*3/uL Normal 3.70-11.00 [facility] Comment on above: Order Comment: Speci men Type: BLOOD SPECIMENOrdering Facility: [facility] Address: [address] [place] [address] Performed By: #### 5 7021-8 ####KARINA LABORATORYCLIA [id number] [place] [address] [place] WBC Left Shift Ql (Bld) Present Normal [facility] Comment on above: Order Comment: Speci men Type: BLOOD SPECIMENOrdering Facility: [facility] Address: [address] [place] [address] Performed By: #### 5 7021-8 ####KARINA LABORATORYCLIA [id number] [place] [address] [place] [facility] MAGNESIUM SERPL-MCNCon 0 11-01-2024 Specimen Type: BLOOD SPECIMEN [facility] Address: [address] [place] [address] Original Ordering Provider: SUZE JENKINS [facility] NT-PROBNP SERPL-MCNCon 0 11-01-2024 Natriuretic peptide B (Bld) [Mass/Vol] 480 pg/mL High NINF - 125 pg/mL [facility] Specimen Type: BLOOD SPECIMEN [facility] Address: [address] [place] [address] Original Ordering Provider: JONAS TRINIDAD [facility] RENAL FUNC 2000 PNL SERP Mayito 11-01-2024 [facility] PHOSPHATE SERPL-MCNC 4.2 mg/dL 2.7 - 4.8 mg/dL [facility] EGFRCR SERPLBLD CKD-EPI 2020 92 - PINF [facility] Comment on above: Estimated Glomerular Filtration Rate (eGFR) is calculated using the 2020 CKD-EPI creatinine equation. This equation utilizes serum creatinine, sex, and age as parameters. The creatinine assay has traceable calibration to isotope dilution-mass spectrometry. Refer to KDIGO guidelines for clinical interpretation. In patients with unstable renal function, e.g. those with acute kidney injury, the eGFR may not accurately reflect actual GFR. Specimen Type: BLOOD SPECIMEN [facility] Address: [address] [place] [address] Original Ordering Provider: CAMILA TEJADA FERRITINon 11-01-2024 Ferritin [Mass/Vol] 5826 ng/mL High 30.3 - 565.7 ng/mL [facility] FOLATE, SERUMon 11-01-2024 Folate [Mass/Vol] 9.2 ng/mL 4.7 - PINF ng/mL [facility] Ferritin SerPl-mCncon 2024 Ferritin [Mass/Vol] 5826.0 ng/mL High 30.3-565.7 [facility] Comment on above: Order Comment: Speci men Type: BLOOD SPECIMENOrdering Facility: [facility] Address: [address] [place] [address] Performed By: #### 2 276-4 ####KARINA LABORATORYCLIA [id number] [place] [address] [place] Ferritin [Mass/Vol]on 2024 Interpretation and review of laboratory results Abnormal [facility] Folate SerPl-mCncon 11-02-19 Folate [Mass/Vol] 9.2 ng/mL Normal >4.7 [facility] Comment on above: Order Comment: Speci men Type: BLOOD SPECIMENOrdering Facility: [facility] Address: [address] [place] [address] Performed By: #### 2 284-8 ####KARINA LABORATORYCLIA [id number] [place] [address] [place] Iron and Iron binding capaci ty panelon 11-01-2024 Interpretation and review of laboratory results Abnormal [facility] Iron [Mass/Vol] 28 ug/dL Low 41 - 186 ug/dL [facility] Iron binding capacity [Mass/Vol] 74 ug/dL Low 232 - 386 ug/dL [facility] Iron/TIBC [Molar ratio] 37.8 % 20.0 - 55.0 % [facility] Iron [Mass/Vol] 28 ug/dL Low 41-186 [facility] Comment on above: Order Comment: Speci men Type: BLOOD SPECIMENOrdering Facility: [facility] Address: [address] [place] [address] Performed By: #### 5 0190-8 ####DEONROLF LABORATORYCLIA [id number] [place] [id number] [place] [facility] Iron binding capacity [Mass/Vol] 74 ug/dL Low 232-386 [facility] Comment on above: Order Comment: Speci men Type: BLOOD SPECIMENOrdering Facility: [facility] Address: [address] [place] [address] Performed By: #### 5 0190-8 ####KARINA LABORATORYCLIA [id number] [address] [place] Iron/TIBC [Molar ratio] 37.8 % Normal 20.0-55.0 [facility] Comment on above: Order Comment: Speci men Type: BLOOD SPECIMENOrdering Facility: [facility] Address: [address] [place] [address] Performed By: #### 5 0190-8 ####KARINA LABORATORYCLIA [id number] [place] [id number] [place] Laboratory - Chemistry and C hemistry - challengeon 11-01-2024 Albumin [Mass/Vol] 2.6 g/dL Low 3.9 - 4.9 g/dL [facility] Anion gap [Moles/Vol] 11 mmol/L 8 - 15 mmol/L [facility] Calcium [Mass/Vol] 8.5 mg/dL 8.5 - 10. 2 mg/dL [facility] Chloride [Moles/Vol] 100 mmol/L 98 - 10 7 mmol/L [facility] CO2 [Moles/Vol] 26 mmol/L 22 - 30 mmol/L [facility] Creatinine [Mass/Vol] 0.88 mg/dL 0.73 - 1.22 mg/dL [facility] Glucose [Mass/Vol] 101 mg/dL High 74 - 99 mg/dL [facility] Comment on above: The [place] Diab[employer] [place] Association (ADA) provides guidance for cutoff values [...] Standards of Medical Care in Diabetes 2016, [place] [employer]. Diabetes Care. 2016.39(Suppl 1). Magnesium [Mass/Vol] 1.8 mg/dL 1.7 - 2 .3 mg/dL [facility] Potassium [Moles/Vol] 5 mmol/L 3.7 - 5.1 mmol/L [facility] Sodium [Moles/Vol] 137 mmol/L 136 - 144 mmol/L [facility] Urea nitrogen [Mass/Vol] 7 mg/dL Low 9 - 24 mg/dL [facility] Magnesium SerPl-mCncon 11-01 Magnesium [Mass/Vol] 1.8 mg/dL Normal 1.7-2.3 [facility] Comment on above: Order Comment: Speci men Type: BLOOD SPECIMENOrdering Facility: [facility] Address: [address] [place] [address] Performed By: #### 1 9123-9 ####KARINA LABORATORYCLIA [id number] [place] [address] [place] Magnesium [Mass/Vol]on 11-01 Interpretation and review of laboratory results Normal [facility] NT PRO BNPon 11-01-2024 Natriuretic peptide.B prohormone N-Terminal [Mass/Vol] 480 pg/mL High NINF - 125 pg/mL [facility] NT-proBNP SerPl-mCncon 11-01 Natriuretic peptide.B prohormone N-Terminal [Mass/Vol] 480 pg/mL High <125 [facility] Comment on above: Order Comment: Speci men Type: BLOOD SPECIMENOrdering Facility: [facility] Address: [address] [place] [address] Performed By: #### 3 3762-6 ####KARINA LABORATORYCLIA [id number] [place] [address] [place] No Panel Informationon 11-01 Interpretation and review of laboratory results Normal [facility] Interpretation and review of laboratory results Abnormal [facility] Renal function 2000 panelon 11-01-2024 GFR/1.73 sq M.predicted among non-blacks MDRD (S/P/Bld) [Vol rate/Area] 92 mL/min/{1.73_m2} - PINF [facility] Comment on above: Estimated Glomerular Filtration Rate (eGFR) is calculated using the 2020 CKD-EPI creatinine equation. This equation utilizes serum creatinine, sex, and age as parameters. The creatinine assay has traceable calibration to isotope dilution-mass spectrometry. Refer to KDIGO guidelines for clinical interpretation. In patients with unstable renal function, e.g. those with acute kidney injury, the eGFR may not accurately reflect actual GFR. Phosphate [Mass/Vol] 4.2 mg/dL 2.7 - 4 .8 mg/dL [facility] Albumin [Mass/Vol] 2.6 g/dL Low 3.9-4.9 [facility] Comment on above: Order Comment: Speci men Type: BLOOD SPECIMENOrdering Facility: [facility] Address: [address] [place] [address] Performed By: #### 2 4362-6 ####KARINA LABORATORYCLIA [id number] [place] [address] [place] Anion gap [Moles/Vol] 11 mmol/L Normal 8-15 [facility] Comment on above: Order Comment: Speci men Type: BLOOD SPECIMENOrdering Facility: [facility] Address: [address] [place] [address] Performed By: #### 2 4362-6 ####KARINA LABORATORYCLIA [id number] [place] [id number] [place] Calcium [Mass/Vol] 8.5 mg/dL Normal 8.5-10.2 [facility] Comment on above: Order Comment: Speci men Type: BLOOD SPECIMENOrdering Facility: [facility] Address: [address] [place] [address] Performed By: #### 2 4362-6 ####KARINA LABORATORYCLIA [id number] [place] [id number] [place] Chloride [Moles/Vol] 100 mmol/L Normal 98-107 [facility] Comment on above: Order Comment: Speci men Type: BLOOD SPECIMENOrdering Facility: [facility] Address: [address] [place] [address] Performed By: #### 2 4362-6 ####KARINA LABORATORYCLIA [id number] [place] [address] [place] CO2 [Moles/Vol] 26 mmol/L Normal 22-30 [facility] Comment on above: Order Comment: Speci men Type: BLOOD SPECIMENOrdering Facility: [facility] Address: [address] [place] [address] Performed By: #### 2 4362-6 ####KARINA LABORATORYCLIA [id number] [place] [address] [place] Creatinine [Mass/Vol] 0.88 mg/dL Normal 0.73-1.22 [facility] Comment on above: Order Comment: Speci men Type: BLOOD SPECIMENOrdering Facility: [facility] Address: [address] [place] [address] Performed By: #### 2 4362-6 ####KARINA LABORATORYCLIA [id number] [place] [address] [place] eGFRcr SerPlBld CKD-EPI 2020 92 mL/min/1.73m??? Normal >=60 [facility] Comment on above: Order Comment: Speci men Type: BLOOD SPECIMENOrdering Facility: [facility] Address: [address] [place] [address] Result Comment: Varsha mated Glomerular Filtration Rate (eGFR) is calculated using the 2020 CKD-EPI creatinine equation. This equation utilizes serum creatinine, sex, and age as parameters. The creatinine assay has traceable calibration to isotope dilution-mass spectrometry. Refer to KDIGO guidelines for clinical interpretation. In patients with unstable renal function, e.g. those with acute kidney injury, the eGFR may not accurately reflect actual GFR. Performed By: #### 2 4362-6 ####KARINA LABORATORYCLIA [id number] [place] [address] [place] Glucose [Mass/Vol] 101 mg/dL High 74-99 [facility] Comment on above: Order Comment: Speci men Type: BLOOD SPECIMENOrdering Facility: [facility] Address: [address] [place] [address] Result Comment: The [place] Diabetes Association (ADA) provides guidance for cutoff [...] Standards of Medical Care in Diabetes 2016, [place] [employer]. Diabetes Care. 2016.39(Suppl 1). Performed By: #### 2 4362-6 ####KARINA LABORATORYCLIA [id number] [place] [address] [place] Phosphate [Mass/Vol] 4.2 mg/dL Normal 2.7-4.8 [facility] Comment on above: Order Comment: Speci men Type: BLOOD SPECIMENOrdering Facility: [facility] Address: [address] [place] [address] Performed By: #### 2 4362-6 ####KARINA LABORATORYCLIA [id number] [place] [id number] [place] Potassium [Moles/Vol] 5.0 mmol/L Normal 3.7-5.1 [facility] Comment on above: Order Comment: Speci men Type: BLOOD SPECIMENOrdering Facility: [facility] Address: [address] [place] [address] Performed By: #### 2 4362-6 ####KARINA LABORATORYCLIA [id number] [place] [address] [place] Sodium [Moles/Vol] 137 mmol/L Normal 136-144 [facility] Comment on above: Order Comment: Speci men Type: BLOOD SPECIMENOrdering Facility: [facility] Address: [address] [place] [address] Performed By: #### 2 4362-6 ####KARINA LABORATORYCLIA [id number] [place] [address] [place] Urea nitrogen [Mass/Vol] 7 mg/dL Low 9-24 [facility] Comment on above: Order Comment: Speci men Type: BLOOD SPECIMENOrdering Facility: [facility] Address: [address] [place] [address] Performed By: #### 2 4362-6 ####KARINA LABORATORYCLIA [id number] [place] [id number] [place] VITAMIN B12on 11-01-2024 Cobalamin (Vitamin B12) [Mass/Vol] 878 pg/mL 232 - 1245 pg/mL [facility] Vit B12 SerPl-mCncon 025 Cobalamin (Vitamin B12) [Mass/Vol] 878 pg/mL Normal 232-1245 [facility] Comment on above: Order Comment: Speci men Type: BLOOD SPECIMENOrdering Facility: [facility] Address: [address] [place] [address] Performed By: #### 2 132-9 ####KARINA LABORATORYCLIA [id number] [place] [address] [place] C-REACTIVE PROTEINon 025 CRP [Mass/Vol] 23.3 mg/dL High NINF - 0.9 mg/dL [facility] CBC W Auto Differential pane l (Bld)on 10-31-2024 Anisocytosis Ql (Bld) Present [facility] Basophils (Bld) [#/Vol] 0 10*3/uL [facility] Basophils/100 WBC (Bld) 0 % [facility] Differential cell count method Nom (Bld) Manual [facility] Eosinophils (Bld) [#/Vol] 0.05 10*3/uL [facility] Eosinophils/100 WBC (Bld) 1 % [facility] Erythrocyte distribution width (RBC) [Ratio] 17.3 % High 11.5 - 15.0 % [facility] Hematocrit (Bld) [Volume fraction] 25.1 % Low 39.0 - 51.0 % [facility] Hemoglobin (Bld) [Mass/Vol] 7.9 g/dL Low 13.0 - 17.0 g/dL [facility] Interpretation and review of laboratory results Abnormal [facility] Lymphocytes (Bld) [#/Vol] 0.2 10*3/uL Low [facility] Lymphocytes/100 WBC (Bld) 4 % [facility] MCH (RBC) [Entitic mass] 30.3 pg 26.0 - 34.0 pg [facility] MCHC (RBC) [Mass/Vol] 31.5 g/dL 30.5 - 36.0 g/dL [facility] MCV (RBC) [Entitic vol] 96.2 fL 80.0 - 100.0 fL [facility] Monocytes (Bld) [#/Vol] 0.05 10*3/uL [facility] Monocytes/100 WBC (Bld) 1 % [facility] Neutrophils (Bld) [#/Vol] 4.73 10*3/uL [facility] Neutrophils/100 WBC (Bld) 94 % [facility] Nucleated RBC (Bld) [#/Vol] [facility] Nucleated RBC/100 WBC (Bld) [Ratio] 0 % /100 WBC [facility] Ovalocytes LM Ql (Bld) Few Cl [facility] Platelet mean volume (Bld) [Entitic vol] 9.3 fL 9.0 - 12.7 fL [facility] Platelets (Bld) [#/Vol] 526 10*3/uL High [facility] Platelets Estimate (Bld) [#/Vol] Increased [facility] RBC (Bld) [#/Vol] 2.61 10*6/uL Low 4.20 - 6.00 m/uL [facility] Red Cell Morph Reviewed: see result s of individual morphologies [facility] WBC (Bld) [#/Vol] 5.03 10*3/uL [facility] This is an appended report. These results have been appended to a previously verified report. [facility] Anisocytosis Ql (Bld) Present Normal [facility] Comment on above: Order Comment: Speci men Type: BLOOD SPECIMENOrdering Facility: [facility] Address: [address] [place] [address] Performed By: #### 5 7021-8 ####KARINA LABORATORYCLIA [id number] [place] [address] [place] Basophils (Bld) [#/Vol] 0.00 10*3/uL Normal <0.11 [facility] Comment on above: Order Comment: Speci men Type: BLOOD SPECIMENOrdering Facility: [facility] Address: [address] [place] [address] Performed By: #### 5 7021-8 ####KARINA LABORATORYCLIA [id number] [place] [id number] [place] Basophils/100 WBC (Bld) 0.0 % Normal [facility] Comment on above: Order Comment: Speci men Type: BLOOD SPECIMENOrdering Facility: [facility] Address: [address] [place] [address] Performed By: #### 5 7021-8 ####KARINA LABORATORYCLIA [id number] [place] [id number] [place] Differential cell count method Nom (Bld) Manual Normal [facility] Comment on above: Order Comment: Speci men Type: BLOOD SPECIMENOrdering Facility: [facility] Address: [address] [place] [address] Performed By: #### 5 7021-8 ####KARINA LABORATORYCLIA [id number] [place] [id number] [place] Eosinophils (Bld) [#/Vol] 0.05 10*3/uL Normal <0.46 [facility] Comment on above: Order Comment: Speci men Type: BLOOD SPECIMENOrdering Facility: [facility] Address: [address] [place] [address] Performed By: #### 5 7021-8 ####KARINA LABORATORYCLIA [id number] [place] [address] [place] Eosinophils/100 WBC (Bld) 1.0 % Normal [facility] Comment on above: Order Comment: Speci men Type: BLOOD SPECIMENOrdering Facility: [facility] Address: [address] [place] [address] Performed By: #### 5 7021-8 ####KARINA LABORATORYCLIA [id number] [place] [address] [place] Erythrocyte distribution width (RBC) [Ratio] 17.3 % High 11.5-15.0 [facility] Comment on above: Order Comment: Speci men Type: BLOOD SPECIMENOrdering Facility: [facility] Address: [address] [place] [address] Performed By: #### 5 7021-8 ####KARINA LABORATORYCLIA [id number] [place] [address] [place] Hematocrit (Bld) [Volume fraction] 25.1 % Low 39.0-51.0 [facility] Comment on above: Order Comment: Speci men Type: BLOOD SPECIMENOrdering Facility: [facility] Address: [address] [place] [address] Performed By: #### 5 7021-8 ####KARINA LABORATORYCLIA [id number] [place] [address] [place] Hemoglobin (Bld) [Mass/Vol] 7.9 g/dL Low 13.0-17.0 [facility] Comment on above: Order Comment: Speci men Type: BLOOD SPECIMENOrdering Facility: [facility] Address: [address] [place] [address] Performed By: #### 5 7021-8 ####KARINA LABORATORYCLIA [id number] [place] [address] [place] Lymphocytes (Bld) [#/Vol] 0.20 10*3/uL Low 1.00-4.00 [facility] Comment on above: Order Comment: Speci men Type: BLOOD SPECIMENOrdering Facility: [facility] Address: [address] [place] [address] Performed By: #### 5 7021-8 ####KARINA LABORATORYCLIA [id number] [place] [address] [place] Lymphocytes/100 WBC (Bld) 4.0 % Normal [facility] Comment on above: Order Comment: Speci men Type: BLOOD SPECIMENOrdering Facility: [facility] Address: [address] [place] [address] Performed By: #### 5 7021-8 ####KARINA LABORATORYCLIA [id number] [place] [address] [place] MCH (RBC) [Entitic mass] 30.3 pg Normal 26.0-34.0 [facility] Comment on above: Order Comment: Speci men Type: BLOOD SPECIMENOrdering Facility: [facility] Address: [address] [place] [address] Performed By: #### 5 7021-8 ####KARINA LABORATORYCLIA [id number] [place] [address] [place] MCHC (RBC) [Mass/Vol] 31.5 g/dL Normal 30.5-36.0 [facility] Comment on above: Order Comment: Speci men Type: BLOOD SPECIMENOrdering Facility: [facility] Address: [address] [place] [address] Performed By: #### 5 7021-8 ####KARINA LABORATORYCLIA [id number] [place] [address] [place] [facility] MCV (RBC) [Entitic vol] 96.2 fL Normal 80.0-100.0 [facility] Comment on above: Order Comment: Speci men Type: BLOOD SPECIMENOrdering Facility: [facility] Address: [address] [place] [address] Performed By: #### 5 7021-8 ####KARINA LABORATORYCLIA [id number] [place] [address] [place] Monocytes (Bld) [#/Vol] 0.05 10*3/uL Normal <0.87 [facility] Comment on above: Order Comment: Speci men Type: BLOOD SPECIMENOrdering Facility: [facility] Address: [address] [place] [address] Performed By: #### 5 7021-8 ####KARINA LABORATORYCLIA [id number] [place] [address] [place] Monocytes/100 WBC (Bld) 1.0 % Normal [facility] Comment on above: Order Comment: Speci men Type: BLOOD SPECIMENOrdering Facility: [facility] Address: [address] [place] [address] Performed By: #### 5 7021-8 ####KARINA LABORATORYCLIA [id number] [place] [address] [place] Neutrophils (Bld) [#/Vol] 4.73 10*3/uL Normal 1.45-7.50 [facility] Comment on above: Order Comment: Speci men Type: BLOOD SPECIMENOrdering Facility: [facility] Address: [address] [place] [address] Performed By: #### 5 7021-8 ####KARINA LABORATORYCLIA [id number] [place] [address] [place] Neutrophils/100 WBC (Bld) 94.0 % Normal [facility] Comment on above: Order Comment: Speci men Type: BLOOD SPECIMENOrdering Facility: [facility] Address: [address] [place] [address] Performed By: #### 5 7021-8 ####KARINA LABORATORYCLIA [id number] [place] [address] [place] Nucleated RBC (Bld) [#/Vol] 10*3/uL Normal <0.01 [facility] Comment on above: Order Comment: Speci men Type: BLOOD SPECIMENOrdering Facility: [facility] Address: [address] [place] [address] Performed By: #### 5 7021-8 ####KARINA LABORATORYCLIA [id number] [place] [address] [place] Nucleated RBC/100 WBC (Bld) [Ratio] 0.0 /100 WBC Normal [facility] Comment on above: Order Comment: Speci men Type: BLOOD SPECIMENOrdering Facility: [facility] Address: [address] [place] [address] Performed By: #### 5 7021-8 ####KARINA LABORATORYCLIA [id number] [place] [id number] [place] Ovalocytes LM Ql (Bld) Few Normal Cl [facility] Comment on above: Order Comment: Speci men Type: BLOOD SPECIMENOrdering Facility: [facility] Address: [address] [place] [address] Performed By: #### 5 7021-8 ####KARINA LABORATORYCLIA [id number] [place] [address] [place] Platelet mean volume (Bld) [Entitic vol] 9.3 fL Normal 9.0-12.7 [facility] Comment on above: Order Comment: Speci men Type: BLOOD SPECIMENOrdering Facility: [facility] Address: [address] [place] [address] Performed By: #### 5 7021-8 ####KARINA LABORATORYCLIA [id number] [place] [address] [place] Platelets (Bld) [#/Vol] 526 10*3/uL High 150-400 [facility] Comment on above: Order Comment: Speci men Type: BLOOD SPECIMENOrdering Facility: [facility] Address: [address] [place] [address] Performed By: #### 5 7021-8 ####KARINA LABORATORYCLIA [id number] [place] [address] [place] Platelets Estimate (Bld) [#/Vol] Increased Normal [facility] Comment on above: Order Comment: Speci men Type: BLOOD SPECIMENOrdering Facility: [facility] Address: [address] [place] [address] Performed By: #### 5 7021-8 ####KARINA LABORATORYCLIA [id number] [place] [id number] [place] RBC (Bld) [#/Vol] 2.61 10*6/uL Low 4.20-6.00 [facility] Comment on above: Order Comment: Speci men Type: BLOOD SPECIMENOrdering Facility: [facility] Address: [address] [place] [address] Performed By: #### 5 7021-8 ####KARINA LABORATORYCLIA [id number] [place] [id number] [place] RED CELL MORPH Reviewed: see result s of individual morphologies Normal [facility] Comment on above: Order Comment: Speci men Type: BLOOD SPECIMENOrdering Facility: [facility] Address: [address] [place] [address] Performed By: #### 5 7021-8 ####KARINA LABORATORYCLIA [id number] [place] [address] [place] WBC (Bld) [#/Vol] 5.03 10*3/uL Normal 3.70-11.00 [facility] Comment on above: Order Comment: Speci men Type: BLOOD SPECIMENOrdering Facility: [facility] Address: [address] [place] [address] Performed By: #### 5 7021-8 ####KARINA LABORATORYCLIA [id number] [place] [address] [place] [facility] PHOSPHATE SERPL-MCNCon 0 10-31-2024 [facility] PHOSPHATE SERPL-MCNC 4.1 mg/dL 2.7 - 4.8 mg/dL [facility] Specimen Type: BLOOD SPECIMEN [facility] Address: [address] [place] [address] Original Ordering Provider: DAVID CRUZ CLINISYGARRICK CRP SerPl-mCncon 10-31-2024 CRP [Mass/Vol] 23.3 mg/dL High <0.9 [facility] Comment on above: Order Comment: Speci men Type: BLOOD SPECIMENOrdering Facility: [facility] Address: [address] [place] [address] Performed By: #### 1 988-5 ####KARINA LABORATORYCLIA [id number] [place] [id number] [place] Comprehensive metabolic 2000 panelon 10-31-2024 Albumin [Mass/Vol] 2.4 g/dL Low 3.9 - 4.9 g/dL [facility] ALP [Catalytic activity/Vol] 158 U/L High 38 - 113 U/L [facility] ALT [Catalytic activity/Vol] 8 U/L Low 10 - 54 U/L [facility] Anion gap [Moles/Vol] 12 mmol/L 8 - 15 mmol/L [facility] AST [Catalytic activity/Vol] 16 U/L 14 - 40 U/L [facility] Bilirubin [Mass/Vol] 0.3 mg/dL 0.2 - 1 .3 mg/dL [facility] Calcium [Mass/Vol] 8.1 mg/dL Low 8.5 - 10. 2 mg/dL [facility] Chloride [Moles/Vol] 102 mmol/L 98 - 10 7 mmol/L [facility] CO2 [Moles/Vol] 22 mmol/L 22 - 30 mmol/L [facility] Creatinine [Mass/Vol] 0.82 mg/dL 0.73 - 1.22 mg/dL [facility] GFR/1.73 sq M.predicted among non-blacks MDRD (S/P/Bld) [Vol rate/Area] 94 mL/min/{1.73_m2} - PINF [facility] Comment on above: Estimated Glomerular Filtration Rate (eGFR) is calculated using the 2020 CKD-EPI creatinine equation. This equation utilizes serum creatinine, sex, and age as parameters. The creatinine assay has traceable calibration to isotope dilution-mass spectrometry. Refer to KDIGO guidelines for clinical interpretation. In patients with unstable renal function, e.g. those with acute kidney injury, the eGFR may not accurately reflect actual GFR. Glucose [Mass/Vol] 82 mg/dL 74 - 99 mg/dL [facility] Comment on above: The [place] Diab[employer] [place] Association (ADA) provides guidance for cutoff values [...] Standards of Medical Care in Diabetes 2016, [place] [employer]. Diabetes Care. 2016.39(Suppl 1). Potassium [Moles/Vol] 5.1 mmol/L 3.7 - 5.1 mmol/L [facility] Protein [Mass/Vol] 5 g/dL Low 6.3 - 8.0 g/dL [facility] Sodium [Moles/Vol] 136 mmol/L 136 - 144 mmol/L [facility] Urea nitrogen [Mass/Vol] 8 mg/dL Low 9 - 24 mg/dL [facility] Albumin [Mass/Vol] 2.4 g/dL Low 3.9-4.9 [facility] Comment on above: Order Comment: Speci men Type: BLOOD SPECIMENOrdering Facility: [facility] Address: [address] [place] [address] Performed By: #### 2 4323-8 ####KARINA LABORATORYCLIA [id number] [place] [address] [place] ALP [Catalytic activity/Vol] 158 U/L High 38-113 [facility] Comment on above: Order Comment: Speci men Type: BLOOD SPECIMENOrdering Facility: [facility] Address: [address] [place] [address] Performed By: #### 2 4323-8 ####KARINA LABORATORYCLIA [id number] [place] [address] [place] ALT [Catalytic activity/Vol] 8 U/L Low 10-54 [facility] Comment on above: Order Comment: Speci men Type: BLOOD SPECIMENOrdering Facility: [facility] Address: [address] [place] [address] Performed By: #### 2 4323-8 ####KARINA LABORATORYCLIA [id number] [place] [address] [place] Anion gap [Moles/Vol] 12 mmol/L Normal 8-15 [facility] Comment on above: Order Comment: Speci men Type: BLOOD SPECIMENOrdering Facility: [facility] Address: [address] [place] [address] Performed By: #### 2 4323-8 ####KARINA LABORATORYCLIA [id number] [place] [address] [place] AST [Catalytic activity/Vol] 16 U/L Normal 14-40 [facility] Comment on above: Order Comment: Speci men Type: BLOOD SPECIMENOrdering Facility: [facility] Address: [address] [place] [address] Performed By: #### 2 4323-8 ####KARINA LABORATORYCLIA [id number] [place] [address] [place] Bilirubin [Mass/Vol] 0.3 mg/dL Normal 0.2-1.3 [facility] Comment on above: Order Comment: Speci men Type: BLOOD SPECIMENOrdering Facility: [facility] Address: [address] [place] [address] Performed By: #### 2 4323-8 ####KARINA LABORATORYCLIA [id number] [place] [address] [place] Calcium [Mass/Vol] 8.1 mg/dL Low 8.5-10.2 [facility] Comment on above: Order Comment: Speci men Type: BLOOD SPECIMENOrdering Facility: [facility] Address: [address] [place] [address] Performed By: #### 2 4323-8 ####KARINA LABORATORYCLIA [id number] [place] [address] [place] Chloride [Moles/Vol] 102 mmol/L Normal 98-107 [facility] Comment on above: Order Comment: Speci men Type: BLOOD SPECIMENOrdering Facility: [facility] Address: [address] [place] [address] Performed By: #### 2 4323-8 ####KARINA LABORATORYCLIA [id number] [place] [address] [place] CO2 [Moles/Vol] 22 mmol/L Normal 22-30 [facility] Comment on above: Order Comment: Speci men Type: BLOOD SPECIMENOrdering Facility: [facility] Address: [address] [place] [address] Performed By: #### 2 4323-8 ####KARINA LABORATORYCLIA [id number] [place] [address] [place] Creatinine [Mass/Vol] 0.82 mg/dL Normal 0.73-1.22 [facility] Comment on above: Order Comment: Speci men Type: BLOOD SPECIMENOrdering Facility: [facility] Address: [address] [place] [address] Performed By: #### 2 4323-8 ####KARINA LABORATORYCLIA [id number] [place] [id number] [place] eGFRcr SerPlBld CKD-EPI 2020 94 mL/min/1.73m??? Normal >=60 [facility] Comment on above: Order Comment: Speci men Type: BLOOD SPECIMENOrdering Facility: [facility] Address: [address] [place] [address] Result Comment: Varsha mated Glomerular Filtration Rate (eGFR) is calculated using the 2020 CKD-EPI creatinine equation. This equation utilizes serum creatinine, sex, and age as parameters. The creatinine assay has traceable calibration to isotope dilution-mass spectrometry. Refer to KDIGO guidelines for clinical interpretation. In patients with unstable renal function, e.g. those with acute kidney injury, the eGFR may not accurately reflect actual GFR. Performed By: #### 2 4323-8 ####KARINA LABORATORYCLIA [id number] [place] [address] [place] Glucose [Mass/Vol] 82 mg/dL Normal 74-99 [facility] Comment on above: Order Comment: Speci men Type: BLOOD SPECIMENOrdering Facility: [facility] Address: [address] [place] [address] Result Comment: The [place] Diabetes Association (ADA) provides guidance for cutoff [...] Standards of Medical Care in Diabetes 2016, [place] Diabetes Association. Diabetes Care. 2016.39(Suppl 1). Performed By: #### 2 4323-8 ####KARINA LABORATORYCLIA [id number] [place] [id number] [place] Potassium [Moles/Vol] 5.1 mmol/L Normal 3.7-5.1 [facility] Comment on above: Order Comment: Speci men Type: BLOOD SPECIMENOrdering Facility: [facility] Address: [address] [place] [address] Performed By: #### 2 4323-8 ####KARINA LABORATORYCLIA [id number] [place] [id number] [place] Protein [Mass/Vol] 5.0 g/dL Low 6.3-8.0 [facility] Comment on above: Order Comment: Speci men Type: BLOOD SPECIMENOrdering Facility: [facility] Address: [address] [place] [address] Performed By: #### 2 4323-8 ####KARINA LABORATORYCLIA [id number] [place] [id number] [place] Sodium [Moles/Vol] 136 mmol/L Normal 136-144 [facility] Comment on above: Order Comment: Speci men Type: BLOOD SPECIMENOrdering Facility: [facility] Address: [address] [place] [address] Performed By: #### 2 4323-8 ####KARINA LABORATORYCLIA [id number] [place] [id number] [place] Urea nitrogen [Mass/Vol] 8 mg/dL Low 9-24 [facility] Comment on above: Order Comment: Speci men Type: BLOOD SPECIMENOrdering Facility: [facility] Address: [address] [place] [address] Performed By: #### 2 4323-8 ####KARINA LABORATORYCLIA [id number] [place] [id number] [place] GGTon 10-31-2024 Gamma glutamyl transferase [Catalytic activity/Vol] 111 U/L High 10 - 70 U/L [facility] GGT SerPl-cCncon 10-31-2024 Gamma glutamyl transferase [Catalytic activity/Vol] 111 U/L High 10-70 [facility] Comment on above: Order Comment: Speci men Type: BLOOD SPECIMENOrdering Facility: [facility] Address: [address] [place] [address] Performed By: #### 2 324-2 ####[facility] LABCLIA [id number] [place] [address] [place] Gamma glutamyl transferase [ Catalytic activity/Vol]on 10-31-2024 Interpretation and review of laboratory results Abnormal [facility] MAGNESIUMon 10-31-2024 Magnesium [Mass/Vol] 1.6 mg/dL Low 1.7 - 2 .3 mg/dL [facility] Magnesium SerPl-mCncon 10-31 Magnesium [Mass/Vol] 1.6 mg/dL Low 1.7-2.3 [facility] Comment on above: Order Comment: Speci men Type: BLOOD SPECIMENOrdering Facility: [facility] Address: [address] [place] [address] Performed By: #### 1 9123-9 ####KARINA LABORATORYCLIA [id number] [place] [address] [place] NT PRO BNPon 10-31-2024 Natriuretic peptide.B prohormone N-Terminal [Mass/Vol] 462 pg/mL High NINF - 125 pg/mL [facility] NT-proBNP SerPl-mCncon 10-31 Natriuretic peptide.B prohormone N-Terminal [Mass/Vol] 462 pg/mL High <125 [facility] Comment on above: Order Comment: Speci men Type: BLOOD SPECIMENOrdering Facility: [facility] Address: [address] [place] [address] Performed By: #### 3 3762-6 ####KARINA LABORATORYCLIA [id number] [place] [address] [place] Natriuretic peptide.B prohor dilshad N-Terminal [Mass/Vol]on 10-31-2024 Interpretation and review of laboratory results Abnormal [facility] No Panel Informationon 10-31 Interpretation and review of laboratory results Abnormal [facility] PHOSPHORUS INORGANICon 10-31 Phosphate [Mass/Vol] 4.1 mg/dL 2.7 - 4 .8 mg/dL [facility] Phosphate SerPl-mCncon 10-31 Phosphate [Mass/Vol] 4.1 mg/dL Normal 2.7-4.8 [facility] Comment on above: Order Comment: Speci men Type: BLOOD SPECIMENOrdering Facility: [facility] Address: [address] [place] [address] Performed By: #### 2 777-1 ####[place] LABORATORYCLIA [id number] [address] [place] [facility] Phosphate [Mass/Vol]on 10-31 Interpretation and review of laboratory results Normal [facility] TACROLIMUS/FK-506 BLOrdered By: Pascual Adler on 10-31-2024 Tacrolimus (Bld) [Mass/Vol] 3.5 ng/mL Low 5.0 - 20.0 ng/mL [facility] Comment on above: Individualized targe t levels for a given patient [...] situation. Test performed by chemiluminescent immunoassay using [employer] Al[employer] i. Tacrolimus (Bld) [Mass/Vol]O rdered By: Pascual Adler on 10-31-2024 Interpretation and review of laboratory results Abnormal [facility] Tacrolimus Bld-mCncon 2024 Tacrolimus (Bld) [Mass/Vol] 3.5 ng/mL Low 5.0-20.0 [facility] Comment on above: Order Comment: Speci men Type: BLOOD SPECIMENOrdering Facility: [facility] Address: [address] [place] [address] Result Comment: Keiko vidualized target levels for a given patient will [...] situation. Test performed by chemiluminescent immunoassay using [employer] Alinity i. Performed By: #### 1 1253-2 ####[facility] LABCLIA [id number] [address] [address] [place] BODY FLUID CELL COUNTon 10-15 Clarity (Unsp spec) Clear Normal Clear [facility] Comment on above: Order Comment: Speci men Type: FLUID SPECIMENOrdering Facility: [facility] Address: [address] [place] [address] Performed By: #### C CBF, [id number] ####[facility] LABCLIA [id number] [place] [id number] [place] Color (Body fld) Yellow Normal Yellow [facility] Comment on above: Order Comment: Speci men Type: FLUID SPECIMENOrdering Facility: [facility] Address: [address] [place] [address] Performed By: #### C CBF, [id number] ####[facility] LABCLIA [id number] [address] [address] [place] RBC Manual cnt (Body fld) [#/Vol] 79607 /uL High <2000 [facility] Comment on above: Order Comment: Speci men Type: FLUID SPECIMENOrdering Facility: [facility] Address: [address] [place] [address] Performed By: #### C CBF, [id number] ####[facility] LABCLIA [id number] [facility] [address] [place] [address] [place] Specimen source Nom (Body fld) Abdomen Normal [facility] Comment on above: Order Comment: Speci men Type: FLUID SPECIMENOrdering Facility: [facility] Address: [address] [place] [address] Performed By: #### C CBF, [id number] ####[facility] LABCLIA [id number] [address] [address] [place] WBC Manual cnt (Body fld) [#/Vol] 42 /uL Normal <1000 [facility] Comment on above: Order Comment: Speci men Type: FLUID SPECIMENOrdering Facility: [facility] Address: [address] [place] [address] Performed By: #### C CBF, [id number] ####[facility] LABCLIA [id number] [address], [place] [address] [place] Bacteria Fld Culton 10-31-19 25 Bacteria identified Cx Nom (Body fld) CULTURE, BODY FLD: No growth GRAM STAIN: No organisms seen Rare Polymorphonuclear leukocytes Gram stain performed on cytospun specimen. Gram stain from primary specimen Normal [facility] Comment on above: Performed By: #### 6 35-3, 611-4 ####[facility] LABIA [id number] [place] [address] [place] Bacteria Spec Anaerobe Culto n 10-30-2024 Bacteria identified Anaer cx Nom (Unsp spec) Negative Normal [facility] Comment on above: Performed By: #### 6 35-3, 611-4 ####[facility] LABIA [id number] [address] [address] [place] CASE MANAGEMon 10-30-2024 CASE MANAGEM Normal [facility] CBC W Auto Differential pane l (Bld)on 10-30-2024 Anisocytosis Ql (Bld) Present Normal [facility] Comment on above: Order Comment: Speci men Type: BLOOD SPECIMENOrdering Facility: [facility] Address: [address] [place], [place] [address] Performed By: #### 5 7021-8 ####[facility] LABCLIA [id number] [facility] [address], [place] [address] [place] Basophils (Bld) [#/Vol] 0.05 10*3/uL Normal <0.11 [facility] Comment on above: Order Comment: Speci men Type: BLOOD SPECIMENOrdering Facility: [facility] Address: [address] [place] [address] Performed By: #### 5 7021-8 ####[facility] LABCLIA [id number] [facility] [address], [place] [address] [place] Basophils/100 WBC (Bld) 0.9 % Normal [facility] Comment on above: Order Comment: Speci men Type: BLOOD SPECIMENOrdering Facility: [facility] Address: [address] [place] [address] Performed By: #### 5 7021-8 ####[facility] LABCLIA [id number] [facility] [address], [place] [address] [place] Differential cell count method Nom (Bld) Manual Normal [facility] Comment on above: Order Comment: Speci men Type: BLOOD SPECIMENOrdering Facility: [facility] Address: [address] [place] [address] Performed By: #### 5 7021-8 ####[facility] LABCLIA [id number] [facility] [place] [address] [place] Eosinophils (Bld) [#/Vol] 0.00 10*3/uL Normal <0.46 [facility] Comment on above: Order Comment: Speci men Type: BLOOD SPECIMENOrdering Facility: [facility] Address: [address] [place] [address] Performed By: #### 5 7021-8 ####[facility] LABCLIA [id number] [facility] [address], [place] [address] [place] Eosinophils/100 WBC (Bld) 0.0 % Normal [facility] Comment on above: Order Comment: Speci men Type: BLOOD SPECIMENOrdering Facility: [facility] Address: [address] [place] [address] Performed By: #### 5 7021-8 ####[facility] LABIA [id number] [place] [address] [place] Erythrocyte distribution width (RBC) [Ratio] 17.2 % High 11.5-15.0 [facility] Comment on above: Order Comment: Speci men Type: BLOOD SPECIMENOrdering Facility: [facility] Address: [address] [place] [address] Performed By: #### 5 7021-8 ####[facility] LABIA [id number] [place] [address] [place] Hematocrit (Bld) [Volume fraction] 25.0 % Low 39.0-51.0 [facility] Comment on above: Order Comment: Speci men Type: BLOOD SPECIMENOrdering Facility: [facility] Address: [address] [place] [address] Performed By: #### 5 7021-8 ####[facility] LABIA [id number] [place] [address] [place] Hemoglobin (Bld) [Mass/Vol] 7.9 g/dL Low 13.0-17.0 [facility] Comment on above: Order Comment: Speci men Type: BLOOD SPECIMENOrdering Facility: [facility] Address: [address] [place] [address] Performed By: #### 5 7021-8 ####[facility] LABIA [id number] [place] [id number] [place] Lymphocytes (Bld) [#/Vol] 0.31 10*3/uL Low 1.00-4.00 [facility] Comment on above: Order Comment: Speci men Type: BLOOD SPECIMENOrdering Facility: [facility] Address: [address] [place] [address] Performed By: #### 5 7021-8 ####[facility] LABCLIA [id number] [place] [address] [place] Lymphocytes/100 WBC (Bld) 5.2 % Normal [facility] Comment on above: Order Comment: Speci men Type: BLOOD SPECIMENOrdering Facility: [facility] Address: [address] [place] [address] Performed By: #### 5 7021-8 ####[facility] LABCLIA [id number] [place] [address] [place] MCH (RBC) [Entitic mass] 30.3 pg Normal 26.0-34.0 [facility] Comment on above: Order Comment: Speci men Type: BLOOD SPECIMENOrdering Facility: [facility] Address: [address] [place] [address] Performed By: #### 5 7021-8 ####[facility] LABIA [id number] [place] [address] [place] MCHC (RBC) [Mass/Vol] 31.6 g/dL Normal 30.5-36.0 [facility] Comment on above: Order Comment: Speci men Type: BLOOD SPECIMENOrdering Facility: [facility] Address: [address] [place] [address] Performed By: #### 5 7021-8 ####[facility] LABIA [id number] [place] [address] [place] MCV (RBC) [Entitic vol] 95.8 fL Normal 80.0-100.0 [facility] Comment on above: Order Comment: Speci men Type: BLOOD SPECIMENOrdering Facility: [facility] Address: [address] [place] [address] Performed By: #### 5 7021-8 ####[facility] LABIA [id number] [place] [id number] [place] Metamyelocytes/100 WBC (Bld) 0.9 % Normal [facility] Comment on above: Order Comment: Speci men Type: BLOOD SPECIMENOrdering Facility: [facility] Address: [address] [place] [address] Performed By: #### 5 7021-8 ####[facility] LABCLIA [id number] [place] [address] [place] Monocytes (Bld) [#/Vol] 0.10 10*3/uL Normal <0.87 [facility] Comment on above: Order Comment: Speci men Type: BLOOD SPECIMENOrdering Facility: [facility] Address: [address] [place] [address] Performed By: #### 5 7021-8 ####[facility] LABCLIA [id number] [place] [address] [place] Monocytes/100 WBC (Bld) 1.7 % Normal [facility] Comment on above: Order Comment: Speci men Type: BLOOD SPECIMENOrdering Facility: [facility] Address: [address] [place] [address] Performed By: #### 5 7021-8 ####[facility] LABCLIA [id number] [place] [address] [place] [place] Neutrophils (Bld) [#/Vol] 5.37 10*3/uL Normal 1.45-7.50 [facility] Comment on above: Order Comment: Speci men Type: BLOOD SPECIMENOrdering Facility: [facility] Address: [address] [place] [address] Performed By: #### 5 7021-8 ####[facility] LABCLIA [id number] [place] [address] [place] Neutrophils/100 WBC (Bld) 91.3 % Normal [facility] Comment on above: Order Comment: Speci men Type: BLOOD SPECIMENOrdering Facility: [facility] Address: [address] [place] [address] Performed By: #### 5 7021-8 ####[facility] LABCLIA [id number] [address] [place] [address] [place] Nucleated RBC (Bld) [#/Vol] 10*3/uL Normal <0.01 [facility] Comment on above: Order Comment: Speci men Type: BLOOD SPECIMENOrdering Facility: [facility] Address: [address] [place] [address] Performed By: #### 5 7021-8 ####[facility] LABCLIA [id number] [address] [place] [address] [place] Nucleated RBC/100 WBC (Bld) [Ratio] 0.0 /100 WBC Normal [facility] Comment on above: Order Comment: Speci men Type: BLOOD SPECIMENOrdering Facility: [facility] Address: [address] [place] [address] Performed By: #### 5 7021-8 ####[facility] LABCLIA [id number] [address] [place] [address] [place] Ovalocytes LM Ql (Bld) Few Normal Cl [facility] Comment on above: Order Comment: Speci men Type: BLOOD SPECIMENOrdering Facility: [facility] Address: [address] [place] [address] Performed By: #### 5 7021-8 ####[facility] LABCLIA [id number] [address] [place] [address] [place] Platelet mean volume (Bld) [Entitic vol] 8.9 fL Low 9.0-12.7 [facility] Comment on above: Order Comment: Speci men Type: BLOOD SPECIMENOrdering Facility: [facility] Address: [address] [place] [address] Performed By: #### 5 7021-8 ####[facility] LABCLIA [id number] [address] [place] [address] [place] Platelets (Bld) [#/Vol] 530 10*3/uL High 150-400 [facility] Comment on above: Order Comment: Speci men Type: BLOOD SPECIMENOrdering Facility: [facility] Address: [address] [place] [address] Performed By: #### 5 7021-8 ####[facility] LABCLIA [id number] [place] [address] [place] Platelets Estimate (Bld) [#/Vol] Increased Normal [facility] Comment on above: Order Comment: Speci men Type: BLOOD SPECIMENOrdering Facility: [facility] Address: [address] [place] [address] Performed By: #### 5 7021-8 ####[facility] LABIA [id number] [place] [address] [place] RBC (Bld) [#/Vol] 2.61 10*6/uL Low 4.20-6.00 [facility] Comment on above: Order Comment: Speci men Type: BLOOD SPECIMENOrdering Facility: [facility] Address: [address] [place] [address] Performed By: #### 5 7021-8 ####[facility] LABIA [id number] [place] [address] [place] RED CELL MORPH Reviewed: see result s of individual morphologies Normal [facility] Comment on above: Order Comment: Speci men Type: BLOOD SPECIMENOrdering Facility: [facility] Address: [address] [place] [address] Performed By: #### 5 7021-8 ####[facility] LABIA [id number] [place] [id number] [place] WBC (Bld) [#/Vol] 5.88 10*3/uL Normal 3.70-11.00 [facility] Comment on above: Order Comment: Speci men Type: BLOOD SPECIMENOrdering Facility: [facility] Address: [address] [place] [address] Performed By: #### 5 7021-8 ####[facility] LABCLIA [id number] [address] [place] [address] [place] WBC Left Shift Ql (Bld) Present Normal [facility] Comment on above: Order Comment: Speci men Type: BLOOD SPECIMENOrdering Facility: [facility] Address: [address] [place], [place] [address] Performed By: #### 5 7021-8 ####[facility] LABCLIA [id number] [address] [place] [address] [place] CNDSon 10-30-2024 CNDS Normal [facility] Comprehensive metabolic 2000 panelon 10-30-2024 Albumin [Mass/Vol] 2.3 g/dL Low 3.9-4.9 [facility] Comment on above: Order Comment: Speci men Type: BLOOD SPECIMENOrdering Facility: [facility] Address: [address] [place] [address] Performed By: #### 2 4323-8, , 2776-04 ####[facility] LABCLIA [id number] [address] [address] [place] ALP [Catalytic activity/Vol] 164 U/L High 38-113 [facility] Comment on above: Order Comment: Speci men Type: BLOOD SPECIMENOrdering Facility: [facility] Address: [address] [place] [address] Performed By: #### 2 4323-8, , 2776-04 ####[facility] LABCLIA [id number] [address] [address] [place] ALT [Catalytic activity/Vol] 7 U/L Low 10-54 [facility] Comment on above: Order Comment: Speci men Type: BLOOD SPECIMENOrdering Facility: [facility] Address: [address] [place], [place] [address] Performed By: #### 2 4323-8, , 2776- ####[facility] LABCLIA [id number] [address] [address] [place] Anion gap [Moles/Vol] 9 mmol/L Normal 8-15 [facility] Comment on above: Order Comment: Speci men Type: BLOOD SPECIMENOrdering Facility: [facility] Address: [address] [place] [address] Performed By: #### 2 4323-8, 62752-3, 2776-04 ####[facility] LABCLIA [id number] [place] [id number] [place] AST [Catalytic activity/Vol] 11 U/L Low 14-40 [facility] Comment on above: Order Comment: Speci men Type: BLOOD SPECIMENOrdering Facility: [facility] Address: [address] [place] [address] Performed By: #### 2 4323-8, , 2776-04 ####[facility] LABIA [id number] [place] [id number] [place] Bilirubin [Mass/Vol] 0.3 mg/dL Normal 0.2-1.3 [facility] Comment on above: Order Comment: Speci men Type: BLOOD SPECIMENOrdering Facility: [facility] Address: [address] [place] [address] Performed By: #### 2 4323-8, , 2776-04 ####[facility] LABIA [id number] [address] [address] [place] Calcium [Mass/Vol] 8.0 mg/dL Low 8.5-10.2 [facility] Comment on above: Order Comment: Speci men Type: BLOOD SPECIMENOrdering Facility: [facility] Address: [address] [place] [address] Performed By: #### 2 4323-8, , 2776- ####[facility] LABCLIA [id number] [address] [address] [place] Chloride [Moles/Vol] 103 mmol/L Normal 98-107 [facility] Comment on above: Order Comment: Speci men Type: BLOOD SPECIMENOrdering Facility: [facility] Address: [address] [place], [place] [address] Performed By: #### 2 4323-8, 14032-3, 2777-1 ####[facility] LABCLIA [id number] [place] [id number] [place] CO2 [Moles/Vol] 23 mmol/L Normal 22-30 [facility] Comment on above: Order Comment: Speci men Type: BLOOD SPECIMENOrdering Facility: [facility] Address: [address] [place] [address] Performed By: #### 2 4323-8, 59590-2, 2777-1 ####[facility] LABCLIA [id number] [place] [id number] [place] Creatinine [Mass/Vol] 0.81 mg/dL Normal 0.73-1.22 [facility] Comment on above: Order Comment: Speci men Type: BLOOD SPECIMENOrdering Facility: [facility] Address: [address] [place] [address] Performed By: #### 2 4323-8, 22027-7, 2777-1 ####[facility] LABIA [id number] [place] [id number] [place] eGFRcr SerPlBld CKD-EPI 2020 94 mL/min/1.73m??? Normal >=60 [facility] Comment on above: Order Comment: Speci men Type: BLOOD SPECIMENOrdering Facility: [facility] Address: [address] [place], [place] [address] Result Comment: Varsha mated Glomerular Filtration Rate (eGFR) is calculated using the 2020 CKD-EPI creatinine equation. This equation utilizes serum creatinine, sex, and age as parameters. The creatinine assay has traceable calibration to isotope dilution-mass spectrometry. Refer to KDIGO guidelines for clinical interpretation. In patients with unstable renal function, e.g. those with acute kidney injury, the eGFR may not accurately reflect actual GFR. Performed By: #### 2 4323-8, , 2776-04 ####[facility] LABCLIA [id number] [facility] [address] [address] [place] Glucose [Mass/Vol] 101 mg/dL High 74-99 [facility] Comment on above: Order Comment: Speci men Type: BLOOD SPECIMENOrdering Facility: [facility] Address: [address] [place] [address] Result Comment: The [place] [employer] (ADA) provides guidance for cutoff [...] Standards of Medical Care in Diabetes 2016, [place] [employer]. Diabetes Care. 2016.39(Suppl 1). Performed By: #### 2 4323-8, , 2776-04 ####[facility] LABCLIA [id number] [facility] MarblarKAISER FOUNDATION HOSPITALK [address] [address] [place] Potassium [Moles/Vol] 4.3 mmol/L Normal 3.7-5.1 [facility] Comment on above: Order Comment: Speci men Type: BLOOD SPECIMENOrdering Facility: [facility] Address: [address] [place] [address] Performed By: #### 2 4323-8, , 2776-04 ####[facility] LABCLIA [id number] [facility] [address] [place] [address] [place] Protein [Mass/Vol] 4.7 g/dL Low 6.3-8.0 [facility] Comment on above: Order Comment: Speci men Type: BLOOD SPECIMENOrdering Facility: [facility] Address: [address] [place] [address] Performed By: #### 2 4323-8, , 2776-04 ####[facility] LABCLIA [id number] [address] [address] [place] Sodium [Moles/Vol] 135 mmol/L Low 136-144 [facility] Comment on above: Order Comment: Speci men Type: BLOOD SPECIMENOrdering Facility: [facility] Address: [address] [place] [address] Performed By: #### 2 4323-8, , 2776-04 ####[facility] LABCLIA [id number] [place] [address] [place] Urea nitrogen [Mass/Vol] 7 mg/dL Low 9-24 [facility] Comment on above: Order Comment: Speci men Type: BLOOD SPECIMENOrdering Facility: [facility] Address: [address] [place] [address] Performed By: #### 2 4323-8, , 2776-04 ####[facility] LABCLIA [id number] [address], [place] [address] [place] MANUAL DIFFERENTIAL, BODY FL UIDon 10-30-2024 DIF TTL, BODY FLUID 100 cells counted Normal [facility] Comment on above: Order Comment: Speci men Type: FLUID SPECIMENOrdering Facility: [facility] Address: [address] [place] [address] Performed By: #### C CBF, [id number] ####[facility] LABCLIA [id number] [place] [id number] [place] LYMPH%, BF 38 % High 18-36 [facility] Comment on above: Order Comment: Speci men Type: FLUID SPECIMENOrdering Facility: [facility] Address: [address] [place] [address] Performed By: #### C CBF, [id number] ####[facility] LABCLIA [id number] [address], [facility] [place] MACRO%, BF 7 % Low 64-80 [facility] Comment on above: Order Comment: Speci men Type: FLUID SPECIMENOrdering Facility: [facility] Address: [address] [place] [address] Performed By: #### C CBF, [id number] ####[facility] LABCLIA [id number] [address], [place] [address] [place] MONO% BF 3 % Normal [facility] Comment on above: Order Comment: Speci men Type: FLUID SPECIMENOrdering Facility: [facility] Address: [address] [place] [address] Performed By: #### C CBF, [id number] ####[facility] LABCLIA [id number] [place] [address] [place] NEUT%, BF 52 % High 0-1 [facility] Comment on above: Order Comment: Speci men Type: FLUID SPECIMENOrdering Facility: [facility] Address: [address] [place] [address] Performed By: #### C CBF, [id number] ####[facility] LABCLIA [id number] [place] [address] [place] Magnesium SerPl-mCncon 10-30 Magnesium [Mass/Vol] 1.9 mg/dL Normal 1.7-2.3 [facility] Comment on above: Order Comment: Speci men Type: BLOOD SPECIMENOrdering Facility: [facility] Address: [address] [place] [address] Performed By: #### 2 4323-8, 75560-0, 2777-1 ####[facility] LABCLIA [id number] [address] OF [place] NURSING PROGon 10-30-2024 NURSING PROG Normal [facility] Phosphate SerPl-mCncon 10-30 Phosphate [Mass/Vol] 3.8 mg/dL Normal 2.7-4.8 [facility] Comment on above: Order Comment: Speci men Type: BLOOD SPECIMENOrdering Facility: [facility] Address: [address] [place] [address] Performed By: #### 2 4323-8, 23777-4, 2777-1 ####[facility] LABCLIA [id number] [place] [address] [place] THERAPY NTon 10-30-2024 THERAPY NT Normal [facility] TYPE + SCREENon 10-30-2024 ABO O Normal [facility] Comment on above: Order Comment: Speci men Type: BLOOD SPECIMENOrdering Facility: [facility] Address: [address] [place] [address] Performed By: #### T SCR ####[facility] B[facility] BANKCLIA [id number] [place] [address] [place] Rh Nom (Bld) Positive Normal [facility] Comment on above: Order Comment: Speci men Type: BLOOD SPECIMENOrdering Facility: [facility] Address: [address] [place] [address] Performed By: #### T SCR ####[facility] BLOOD BANKIA [id number] [place] [address] [place] TYPE AND SCREEN EXPIRATION 11/02/2024 23:59 Normal [facility] Comment on above: Order Comment: Speci men Type: BLOOD SPECIMENOrdering Facility: [facility] Address: [address] [place] [address] Performed By: #### T SCR ####CC [facility] BLOOD BANKCLIA [id number] [place] [address] [place] Tacrolimus Bld-mCncon 2024 Tacrolimus (Bld) [Mass/Vol] 4.5 ng/mL Low 5.0-20.0 [facility] Comment on above: Order Comment: Speci men Type: BLOOD SPECIMENOrdering Facility: [facility] Address: [address] [place] [address] Result Comment: Keiko vidualized target levels for a given patient will [...] situation. Test performed by chemiluminescent immunoassay using [employer] Alinity i. Performed By: #### 1 1253-2 ####[facility] DAYTONIA [id number] [place] [address] [place] ALLIED HEALTHon 10-29-2024 ALLIED HEALTH Normal [facility] CBC W Auto Differential pane l (Bld)on 10-29-2024 Anisocytosis Ql (Bld) Present Normal [facility] Comment on above: Order Comment: Speci men Type: BLOOD SPECIMENOrdering Facility: [facility] Address: [address] [place] [address] Performed By: #### 5 7021-8 ####[facility] LABIA [id number] [place] [address] [place] Basophils (Bld) [#/Vol] 0.00 10*3/uL Normal <0.11 [facility] Comment on above: Order Comment: Speci men Type: BLOOD SPECIMENOrdering Facility: [facility] Address: [address] [place] [address] Performed By: #### 5 7021-8 ####[facility] LABIA [id number] [place] [address] [place] Basophils/100 WBC (Bld) 0.0 % Normal [facility] Comment on above: Order Comment: Speci men Type: BLOOD SPECIMENOrdering Facility: [facility] Address: [address] [place] [address] Performed By: #### 5 7021-8 ####[facility] LABCLIA [id number] [place] [address] [place] Differential cell count method Nom (Bld) Manual Normal [facility] Comment on above: Order Comment: Speci men Type: BLOOD SPECIMENOrdering Facility: [facility] Address: [address] [place] [address] Performed By: #### 5 7021-8 ####[facility] LABCLIA [id number] [place] [address] [place] Eosinophils (Bld) [#/Vol] 0.00 10*3/uL Normal <0.46 [facility] Comment on above: Order Comment: Speci men Type: BLOOD SPECIMENOrdering Facility: [facility] Address: [address] [place] [address] Performed By: #### 5 7021-8 ####[facility] LABIA [id number] [place] [address] [place] Eosinophils/100 WBC (Bld) 0.0 % Normal [facility] Comment on above: Order Comment: Speci men Type: BLOOD SPECIMENOrdering Facility: [facility] Address: [address] [place] [address] Performed By: #### 5 7021-8 ####[facility] LABIA [id number] [place] [address] [place] Erythrocyte distribution width (RBC) [Ratio] 17.2 % High 11.5-15.0 [facility] Comment on above: Order Comment: Speci men Type: BLOOD SPECIMENOrdering Facility: [facility] Address: [address] [place] [address] Performed By: #### 5 7021-8 ####[facility] LABCLIA [id number] [place] [address] [place] Hematocrit (Bld) [Volume fraction] 24.4 % Low 39.0-51.0 [facility] Comment on above: Order Comment: Speci men Type: BLOOD SPECIMENOrdering Facility: [facility] Address: [address] [place] [address] Performed By: #### 5 7021-8 ####[facility] LABCLIA [id number] [place] [address] [place] Hemoglobin (Bld) [Mass/Vol] 7.8 g/dL Low 13.0-17.0 [facility] Comment on above: Order Comment: Speci men Type: BLOOD SPECIMENOrdering Facility: [facility] Address: [address] [place] [address] Performed By: #### 5 7021-8 ####[facility] LABIA [id number] [place] [address] [place] Lymphocytes (Bld) [#/Vol] 0.12 10*3/uL Low 1.00-4.00 [facility] Comment on above: Order Comment: Speci men Type: BLOOD SPECIMENOrdering Facility: [facility] Address: [address] [place] [address] Performed By: #### 5 7021-8 ####[facility] LABIA [id number] [place] [address] [place] Lymphocytes/100 WBC (Bld) 1.8 % Normal [facility] Comment on above: Order Comment: Speci men Type: BLOOD SPECIMENOrdering Facility: [facility] Address: [address] [place] [address] Performed By: #### 5 7021-8 ####[facility] LABIA [id number] [place] [id number] [place] MCH (RBC) [Entitic mass] 30.1 pg Normal 26.0-34.0 [facility] Comment on above: Order Comment: Speci men Type: BLOOD SPECIMENOrdering Facility: [facility] Address: [address] [place] [address] Performed By: #### 5 7021-8 ####[facility] LABCLIA [id number] [place] [address] [place] MCHC (RBC) [Mass/Vol] 32.0 g/dL Normal 30.5-36.0 [facility] Comment on above: Order Comment: Speci men Type: BLOOD SPECIMENOrdering Facility: [facility] Address: [address] [place] [address] Performed By: #### 5 7021-8 ####[facility] LABIA [id number] [place] [address] [place] MCV (RBC) [Entitic vol] 94.2 fL Normal 80.0-100.0 [facility] Comment on above: Order Comment: Speci men Type: BLOOD SPECIMENOrdering Facility: [facility] Address: [address] [place] [address] Performed By: #### 5 7021-8 ####[facility] LABIA [id number] [place] [address] [place] Monocytes (Bld) [#/Vol] 0.00 10*3/uL Normal <0.87 [facility] Comment on above: Order Comment: Speci men Type: BLOOD SPECIMENOrdering Facility: [facility] Address: [address] [place] [address] Performed By: #### 5 7021-8 ####[facility] LABCLIA [id number] [place] [address] [place] Monocytes/100 WBC (Bld) 0.0 % Normal [facility] Comment on above: Order Comment: Speci men Type: BLOOD SPECIMENOrdering Facility: [facility] Address: [address] [place] [address] Performed By: #### 5 7021-8 ####[facility] LABIA [id number] [place] [id number] [place] Neutrophils (Bld) [#/Vol] 6.79 10*3/uL Normal 1.45-7.50 [facility] Comment on above: Order Comment: Speci men Type: BLOOD SPECIMENOrdering Facility: [facility] Address: [address] [place] [address] Performed By: #### 5 7021-8 ####[facility] LABCLIA [id number] [place] [address] [place] Neutrophils/100 WBC (Bld) 98.2 % Normal [facility] Comment on above: Order Comment: Speci men Type: BLOOD SPECIMENOrdering Facility: [facility] Address: [address] [place] [address] Performed By: #### 5 7021-8 ####[facility] LABCLIA [id number] [place] [address] [place] Nucleated RBC (Bld) [#/Vol] 10*3/uL Normal <0.01 [facility] Comment on above: Order Comment: Speci men Type: BLOOD SPECIMENOrdering Facility: [facility] Address: [address] [place] [address] Performed By: #### 5 7021-8 ####[facility] LABCLIA [id number] [place] [address] [place] Nucleated RBC/100 WBC (Bld) [Ratio] 0.0 /100 WBC Normal [facility] Comment on above: Order Comment: Speci men Type: BLOOD SPECIMENOrdering Facility: [facility] Address: [address] [place] [address] Performed By: #### 5 7021-8 ####[facility] LABCLIA [id number] [place] [address] [place] Platelet mean volume (Bld) [Entitic vol] 8.9 fL Low 9.0-12.7 [facility] Comment on above: Order Comment: Speci men Type: BLOOD SPECIMENOrdering Facility: [facility] Address: [address] [place] [address] Performed By: #### 5 7021-8 ####[facility] LABCLIA [id number] [address] [place] [address] [place] Platelets (Bld) [#/Vol] 454 10*3/uL High 150-400 [facility] Comment on above: Order Comment: Speci men Type: BLOOD SPECIMENOrdering Facility: [facility] Address: [address] [place] [address] Performed By: #### 5 7021-8 ####[facility] LABCLIA [id number] [address] [place] [address] [place] Platelets Estimate (Bld) [#/Vol] Increased Normal [facility] Comment on above: Order Comment: Speci men Type: BLOOD SPECIMENOrdering Facility: [facility] Address: [address] [place] [address] Performed By: #### 5 7021-8 ####[facility] LABCLIA [id number] [address] [place] [address] [place] RBC (Bld) [#/Vol] 2.59 10*6/uL Low 4.20-6.00 [facility] Comment on above: Order Comment: Speci men Type: BLOOD SPECIMENOrdering Facility: [facility] Address: [address] [place] [address] Performed By: #### 5 7021-8 ####[facility] LABCLIA [id number] [address] [place] [address] [place] RED CELL MORPH Reviewed: see result s of individual morphologies Normal [facility] Comment on above: Order Comment: Speci men Type: BLOOD SPECIMENOrdering Facility: [facility] Address: [address] [place] [address] Performed By: #### 5 7021-8 ####[facility] LABCLIA [id number] [place] [address] [place] SPHEROCYTES Few Normal [facility] Comment on above: Order Comment: Speci men Type: BLOOD SPECIMENOrdering Facility: [facility] Address: [address] [place] [address] Performed By: #### 5 7021-8 ####[facility] LABCLIA [id number] [place] [address] [place] WBC (Bld) [#/Vol] 6.91 10*3/uL Normal 3.70-11.00 [facility] Comment on above: Order Comment: Speci men Type: BLOOD SPECIMENOrdering Facility: [facility] Address: [address] [place] [address] Performed By: #### 5 7021-8 ####[facility] LABCLIA [id number] [place] [address] [place] CONSULT PROGon 10-29-2024 CONSULT PROG Normal [facility] THERAPY NTon 10-29-2024 THERAPY NT Normal [facility] US ABD LIVER VASCULAR TRANSP LANTon 10-29-2024 US ABD LIVER VASCULAR TRANSPLANT Normal [facility] US DOPPLER COMPLETEon 2024 US DOPPLER COMPLETE Normal [facility] CBC W Auto Differential pane l (Bld)on 10-24-2024 Basophils (Bld) [#/Vol] 0.09 10*3/uL Normal <0.11 [facility] Comment on above: Order Comment: Speci men Type: BLOOD SPECIMENOrdering Facility: [facility] Address: [address] [place] [address] Performed By: #### 5 7021-8 ####[facility] LABCLIA [id number] [place] [address] [place] Basophils/100 WBC (Bld) 0.8 % Normal [facility] Comment on above: Order Comment: Speci men Type: BLOOD SPECIMENOrdering Facility: [facility] Address: [address] [place] [address] Performed By: #### 5 7021-8 ####[facility] LABCLIA [id number] [address], [place] [address] [place] Differential cell count method Nom (Bld) Auto Normal [facility] Comment on above: Order Comment: Speci men Type: BLOOD SPECIMENOrdering Facility: [facility] Address: [address] [place] [address] Performed By: #### 5 7021-8 ####[facility] LABCLIA [id number] [address], [place] [address] [place] Eosinophils (Bld) [#/Vol] 0.05 10*3/uL Normal <0.46 [facility] Comment on above: Order Comment: Speci men Type: BLOOD SPECIMENOrdering Facility: [facility] Address: [address] [place] [address] Performed By: #### 5 7021-8 ####[facility] LABCLIA [id number] [place] [address] [place] Eosinophils/100 WBC (Bld) 0.4 % Normal [facility] Comment on above: Order Comment: Speci men Type: BLOOD SPECIMENOrdering Facility: [facility] Address: [address] [place] [address] Performed By: #### 5 7021-8 ####[facility] LABCLIA [id number] [place] [address] [place] Erythrocyte distribution width (RBC) [Ratio] 17.3 % High 11.5-15.0 [facility] Comment on above: Order Comment: Speci men Type: BLOOD SPECIMENOrdering Facility: [facility] Address: [address] [place] [address] Performed By: #### 5 7021-8 ####[facility] LABCLIA [id number] [place] [id number] [place] Hematocrit (Bld) [Volume fraction] 27.7 % Low 39.0-51.0 [facility] Comment on above: Order Comment: Speci men Type: BLOOD SPECIMENOrdering Facility: [facility] Address: [address] [place] [address] Performed By: #### 5 7021-8 ####[facility] LABCLIA [id number] [place] [id number] [place] Hemoglobin (Bld) [Mass/Vol] 8.7 g/dL Low 13.0-17.0 [facility] Comment on above: Order Comment: Speci men Type: BLOOD SPECIMENOrdering Facility: [facility] Address: [address] [place] [address] Performed By: #### 5 7021-8 ####[facility] LABCLIA [id number] [place] [address] [place] Immature granulocytes (Bld) [#/Vol] 0.21 10*3/uL High <0.10 [facility] Comment on above: Order Comment: Speci men Type: BLOOD SPECIMENOrdering Facility: [facility] Address: [address] [place] [address] Performed By: #### 5 7021-8 ####[facility] LABIA [id number] [place] [address] [place] Immature granulocytes/100 WBC (Bld) 1.8 % Normal [facility] Comment on above: Order Comment: Speci men Type: BLOOD SPECIMENOrdering Facility: [facility] Address: [address] [place] [address] Performed By: #### 5 7021-8 ####[facility] LABIA [id number] [place] [address] [place] Lymphocytes (Bld) [#/Vol] 0.27 10*3/uL Low 1.00-4.00 [facility] Comment on above: Order Comment: Speci men Type: BLOOD SPECIMENOrdering Facility: [facility] Address: [address] [place] [address] Performed By: #### 5 7021-8 ####[facility] LABCLIA [id number] [place] [address] [place] Lymphocytes/100 WBC (Bld) 2.3 % Normal [facility] Comment on above: Order Comment: Speci men Type: BLOOD SPECIMENOrdering Facility: [facility] Address: [address] [place] [address] Performed By: #### 5 7021-8 ####[facility] LABIA [id number] [place] [address] [place] MCH (RBC) [Entitic mass] 29.4 pg Normal 26.0-34.0 [facility] Comment on above: Order Comment: Speci men Type: BLOOD SPECIMENOrdering Facility: [facility] Address: [address] [place] [address] Performed By: #### 5 7021-8 ####[facility] LABIA [id number] [place] [address] [place] MCHC (RBC) [Mass/Vol] 31.4 g/dL Normal 30.5-36.0 [facility] Comment on above: Order Comment: Speci men Type: BLOOD SPECIMENOrdering Facility: [facility] Address: [address] [place] [address] Performed By: #### 5 7021-8 ####[facility] LABIA [id number] [place] [address] [place] MCV (RBC) [Entitic vol] 93.6 fL Normal 80.0-100.0 [facility] Comment on above: Order Comment: Speci men Type: BLOOD SPECIMENOrdering Facility: [facility] Address: [address] [place] [address] Performed By: #### 5 7021-8 ####[facility] LABIA [id number] [place] [address] [place] Monocytes (Bld) [#/Vol] 0.44 10*3/uL Normal <0.87 [facility] Comment on above: Order Comment: Speci men Type: BLOOD SPECIMENOrdering Facility: [facility] Address: [address] [place] [address] Performed By: #### 5 7021-8 ####[facility] LABCLIA [id number] [place] [address] [place] Monocytes/100 WBC (Bld) 3.8 % Normal [facility] Comment on above: Order Comment: Speci men Type: BLOOD SPECIMENOrdering Facility: [facility] Address: [address] [place] [address] Performed By: #### 5 7021-8 ####[facility] LABCLIA [id number] [place] [address] [place] Neutrophils (Bld) [#/Vol] 10.60 10*3/uL High 1.45-7.50 [facility] Comment on above: Order Comment: Speci men Type: BLOOD SPECIMENOrdering Facility: [facility] Address: [address] [place] [address] Performed By: #### 5 7021-8 ####[facility] LABCLIA [id number] [place] [address] [place] Neutrophils/100 WBC (Bld) 90.9 % Normal [facility] Comment on above: Order Comment: Speci men Type: BLOOD SPECIMENOrdering Facility: [facility] Address: [address] [place] [address] Performed By: #### 5 7021-8 ####[facility] LABCLIA [id number] [place] [address] [place] Nucleated RBC (Bld) [#/Vol] 10*3/uL Normal <0.01 [facility] Comment on above: Order Comment: Speci men Type: BLOOD SPECIMENOrdering Facility: [facility] Address: [address] [place], [place] [address] Performed By: #### 5 7021-8 ####[facility] LABCLIA [id number] [address] [place] [address] [place] Nucleated RBC/100 WBC (Bld) [Ratio] 0.0 /100 WBC Normal [facility] Comment on above: Order Comment: Speci men Type: BLOOD SPECIMENOrdering Facility: [facility] Address: [address] [place] [address] Performed By: #### 5 7021-8 ####[facility] LABCLIA [id number] [address] [place] [address] [place] Platelet mean volume (Bld) [Entitic vol] 9.1 fL Normal 9.0-12.7 [facility] Comment on above: Order Comment: Speci men Type: BLOOD SPECIMENOrdering Facility: [facility] Address: [address] [place] [address] Performed By: #### 5 7021-8 ####[facility] LABCLIA [id number] [address] [place] [address] [place] Platelets (Bld) [#/Vol] 516 10*3/uL High 150-400 [facility] Comment on above: Order Comment: Speci men Type: BLOOD SPECIMENOrdering Facility: [facility] Address: [address] [place] [address] Performed By: #### 5 7021-8 ####[facility] LABCLIA [id number] [facility] [address] [place] [address] [place] RBC (Bld) [#/Vol] 2.96 10*6/uL Low 4.20-6.00 [facility] Comment on above: Order Comment: Speci men Type: BLOOD SPECIMENOrdering Facility: [facility] Address: [address] [place] [address] Performed By: #### 5 7021-8 ####[facility] LABCLIA [id number] [address] [address] [place] WBC (Bld) [#/Vol] 11.66 10*3/uL High 3.70-11.00 [facility] Comment on above: Order Comment: Speci men Type: BLOOD SPECIMENOrdering Facility: [facility] Address: [address] [place] [address] Performed By: #### 5 7021-8 ####[facility] LABCLIA [id number] [place] [id number] [place] Comprehensive metabolic 2000 panelon 10-24-2024 Albumin [Mass/Vol] 2.5 g/dL Low 3.9-4.9 [facility] Comment on above: Order Comment: Speci men Type: BLOOD SPECIMENOrdering Facility: [facility] Address: [address] [place] [address] Performed By: #### 1 9123-9, 2777-1, 58900-6 ####[facility] LABCLIA [id number] [place] [id number] [place] ALP [Catalytic activity/Vol] 242 U/L High 38-113 [facility] Comment on above: Order Comment: Speci men Type: BLOOD SPECIMENOrdering Facility: [facility] Address: [address] [place] [address] Performed By: #### 1 9123-9, 2777-1, 85994-7 ####[facility] LABCLIA [id number] [place] [id number] [place] ALT [Catalytic activity/Vol] 6 U/L Low 10-54 [facility] Comment on above: Order Comment: Speci men Type: BLOOD SPECIMENOrdering Facility: [facility] Address: [address] [place] [address] Performed By: #### 1 9123-9, 2777-1, 78448-1 ####[facility] LABCLIA [id number] [address] [id number] [address] [place] Anion gap [Moles/Vol] 11 mmol/L Normal 8-15 [facility] Comment on above: Order Comment: Speci men Type: BLOOD SPECIMENOrdering Facility: [facility] Address: [address] [place] [address] Performed By: #### 1 9123-9, 27710-15, 05215-8 ####[facility] LABCLIA [id number] [place] [id number] [place] AST [Catalytic activity/Vol] 8 U/L Low 14-40 [facility] Comment on above: Order Comment: Speci men Type: BLOOD SPECIMENOrdering Facility: [facility] Address: [address] [place] [address] Performed By: #### 1 9123-9, 27710-15, 69095-1 ####[facility] LABCLIA [id number] [place] [address] [place] Bilirubin [Mass/Vol] 0.3 mg/dL Normal 0.2-1.3 [facility] Comment on above: Order Comment: Speci men Type: BLOOD SPECIMENOrdering Facility: [facility] Address: [address] [place] [address] Performed By: #### 1 9123-9, 27710-15, 78565-7 ####[facility] LABCLIA [id number] [place] [id number] [place] Calcium [Mass/Vol] 8.9 mg/dL Normal 8.5-10.2 [facility] Comment on above: Order Comment: Speci men Type: BLOOD SPECIMENOrdering Facility: [facility] Address: [address] [place], [place] [address] Performed By: #### 1 9123-9, 2776-04, 71441-1 ####[facility] LABCLIA [id number] [address] [address] [place] Chloride [Moles/Vol] 101 mmol/L Normal 98-107 [facility] Comment on above: Order Comment: Speci men Type: BLOOD SPECIMENOrdering Facility: [facility] Address: [address] [place], [place] [address] Performed By: #### 1 9123-9, 27710-15, 69544-7 ####[facility] LABCLIA [id number] [address] [address] [place] CO2 [Moles/Vol] 21 mmol/L Low 22-30 [facility] Comment on above: Order Comment: Speci men Type: BLOOD SPECIMENOrdering Facility: [facility] Address: [address] [place] [address] Performed By: #### 1 9123-9, 27710-15, ####[facility] LABCLIA [id number] [address] [address] [place] Creatinine [Mass/Vol] 0.78 mg/dL Normal 0.73-1.22 [facility] Comment on above: Order Comment: Speci men Type: BLOOD SPECIMENOrdering Facility: [facility] Address: [address] [place] [address] Performed By: #### 1 9123-9, 27710-15, ####[facility] LABCLIA [id number] [address] [address] [place] Creatinine and Glomerular filtration rate.predicted panel (S/P/Bld) 95 mL/min/1.73m??? Normal >=60 [facility] Comment on above: Order Comment: Speci men Type: BLOOD SPECIMENOrdering Facility: [facility] Address: [address] [place] [address] Result Comment: Varsha mated Glomerular Filtration Rate (eGFR) is calculated using the 2020 CKD-EPI creatinine equation. This equation utilizes serum creatinine, sex, and age as parameters. The creatinine assay has traceable calibration to isotope dilution-mass spectrometry. Refer to KDIGO guidelines for clinical interpretation. In patients with unstable renal function, e.g. those with acute kidney injury, the eGFR may not accurately reflect actual GFR. Performed By: #### 1 9123-9, 2776-04, ####[facility] LABCLIA [id number] [address] [address] [place] Glucose [Mass/Vol] 143 mg/dL High 74-99 [facility] Comment on above: Order Comment: Speci men Type: BLOOD SPECIMENOrdering Facility: [facility] Address: [address] [place] [address] Result Comment: The [place] [employer] (ADA) provides guidance for cutoff [...] Standards of Medical Care in Diabetes 2016, [place] [employer]. Diabetes Care. 2016.39(Suppl 1). Performed By: #### 1 9123-9, 2776-04, ####[facility] LABIA [id number] [address] [address] [place] Potassium [Moles/Vol] 4.3 mmol/L Normal 3.7-5.1 [facility] Comment on above: Order Comment: Speci men Type: BLOOD SPECIMENOrdering Facility: [facility] Address: [address] [place] [address] Performed By: #### 1 9123-9, 27710-15, ####[facility] LABIA [id number] [address] [address] [place] Protein [Mass/Vol] 5.4 g/dL Low 6.3-8.0 [facility] Comment on above: Order Comment: Speci men Type: BLOOD SPECIMENOrdering Facility: [facility] Address: [address] [place], [place] [address] Performed By: #### 1 9123-9, 2777-1, 44173-5 ####[facility] LABIA [id number] [place] [id number] [place] Sodium [Moles/Vol] 133 mmol/L Low 136-144 [facility] Comment on above: Order Comment: Speci men Type: BLOOD SPECIMENOrdering Facility: [facility] Address: [address] [place], [place] [address] Performed By: #### 1 9123-9, 2777-1, 09875-6 ####[facility] LABIA [id number] [place] [address] [place] Urea nitrogen [Mass/Vol] 6 mg/dL Low 9-24 [facility] Comment on above: Order Comment: Speci men Type: BLOOD SPECIMENOrdering Facility: [facility] Address: [address] [place], [place] [address] Performed By: #### 1 9123-9, 2777-, 73020-5 ####[facility] [id number] [place] [id number] [place] Magnesium SerPl-mCncon 10-24 Magnesium [Mass/Vol] 1.5 mg/dL Low 1.7-2.3 [facility] Comment on above: Order Comment: Speci men Type: BLOOD SPECIMENOrdering Facility: [facility] Address: [address] [place], [place] [address] Performed By: #### 1 9123-9, 2777-1, 45558-5 ####[facility] LABIA [id number] [place] [id number] [place] PT EDon 10-24-2024 PT ED Normal [facility] Phosphate SerPl-mCncon 10-24 Phosphate [Mass/Vol] 3.6 mg/dL Normal 2.7-4.8 [facility] Comment on above: Order Comment: Speci men Type: BLOOD SPECIMENOrdering Facility: [facility] Address: [address] [place] [address] Performed By: #### 1 9123-9, 2777-1, 30745-7 ####[facility] LABCLIA [id number] [place] [address] [place] Tacrolimus Bld-ncon 2024 Tacrolimus (Bld) [Mass/Vol] 4.8 ng/mL Low 5.0-20.0 [facility] Comment on above: Order Comment: Speci men Type: BLOOD SPECIMENOrdering Facility: [facility] Address: [address] [place] [address] Result Comment: Keiko vidualized target levels for a given patient will [...] situation. Test performed by chemiluminescent immunoassay using [employer] i. Performed By: #### 1 1253-2 ####[facility] LABCLIA [id number] [place] [address] [place] XR ABDOMEN 1V SUPINEon 10-24 XR ABDOMEN 1V SUPINE Normal [facility] ALLIED HEALTHon 10-23-2024 ALLIED HEALTH Normal [facility] CBC W Auto Differential pane l (Bld)on 10-23-2024 Basophils (Bld) [#/Vol] 0.08 10*3/uL Normal <0.11 [facility] Comment on above: Order Comment: Speci men Type: BLOOD SPECIMENOrdering Facility: [facility] Address: [address] [place] [address] Performed By: #### 5 7021-8 ####[facility] LABCLIA [id number] [address] [place] Basophils/100 WBC (Bld) 0.9 % Normal [facility] Comment on above: Order Comment: Speci men Type: BLOOD SPECIMENOrdering Facility: [facility] Address: [address] [place] [address] Performed By: #### 5 7021-8 ####[facility] LABCLIA [id number] [place] [address] [place] Differential cell count method Nom (Bld) Auto Normal [facility] Comment on above: Order Comment: Speci men Type: BLOOD SPECIMENOrdering Facility: [facility] Address: [address] [place] [address] Performed By: #### 5 7021-8 ####[facility] LABCLIA [id number] [place] [address] [place] Eosinophils (Bld) [#/Vol] 0.21 10*3/uL Normal <0.46 [facility] Comment on above: Order Comment: Speci men Type: BLOOD SPECIMENOrdering Facility: [facility] Address: [address] [place] [address] Performed By: #### 5 7021-8 ####[facility] LABCLIA [id number] [place] [address] [place] Eosinophils/100 WBC (Bld) 2.3 % Normal [facility] Comment on above: Order Comment: Speci men Type: BLOOD SPECIMENOrdering Facility: [facility] Address: [address] [place] [address] Performed By: #### 5 7021-8 ####[facility] LABCLIA [id number] [place] [address] [place] Erythrocyte distribution width (RBC) [Ratio] 17.3 % High 11.5-15.0 [facility] Comment on above: Order Comment: Speci men Type: BLOOD SPECIMENOrdering Facility: [facility] Address: [address] [place] [address] Performed By: #### 5 7021-8 ####[facility] LABCLIA [id number] [place] [address] [place] Hematocrit (Bld) [Volume fraction] 26.4 % Low 39.0-51.0 [facility] Comment on above: Order Comment: Speci men Type: BLOOD SPECIMENOrdering Facility: [facility] Address: [address] [place] [address] Performed By: #### 5 7021-8 ####[facility] LABCLIA [id number] [place] [address] [place] Hemoglobin (Bld) [Mass/Vol] 8.5 g/dL Low 13.0-17.0 [facility] Comment on above: Order Comment: Speci men Type: BLOOD SPECIMENOrdering Facility: [facility] Address: [address] [place] [address] Performed By: #### 5 7021-8 ####[facility] LABCLIA [id number] [place] [address] [place] Immature granulocytes (Bld) [#/Vol] 0.14 10*3/uL High <0.10 [facility] Comment on above: Order Comment: Speci men Type: BLOOD SPECIMENOrdering Facility: [facility] Address: [address] [place] [address] Performed By: #### 5 7021-8 ####[facility] LABCLIA [id number] [place] [address] [place] Immature granulocytes/100 WBC (Bld) 1.5 % Normal [facility] Comment on above: Order Comment: Speci men Type: BLOOD SPECIMENOrdering Facility: [facility] Address: [address] [place] [address] Performed By: #### 5 7021-8 ####[facility] LABCLIA [id number] [place] [id number] [place] Lymphocytes (Bld) [#/Vol] 0.31 10*3/uL Low 1.00-4.00 [facility] Comment on above: Order Comment: Speci men Type: BLOOD SPECIMENOrdering Facility: [facility] Address: [address] [place] [address] Performed By: #### 5 7021-8 ####[facility] LABCLIA [id number] [place] [address] [place] Lymphocytes/100 WBC (Bld) 3.3 % Normal [facility] Comment on above: Order Comment: Speci men Type: BLOOD SPECIMENOrdering Facility: [facility] Address: [address] [place] [address] Performed By: #### 5 7021-8 ####[facility] LABCLIA [id number] [place] [address] [place] MCH (RBC) [Entitic mass] 30.5 pg Normal 26.0-34.0 [facility] Comment on above: Order Comment: Speci men Type: BLOOD SPECIMENOrdering Facility: [facility] Address: [address] [place] [address] Performed By: #### 5 7021-8 ####[facility] LABIA [id number] [place] [address] [place] MCHC (RBC) [Mass/Vol] 32.2 g/dL Normal 30.5-36.0 [facility] [place] Comment on above: Order Comment: Speci men Type: BLOOD SPECIMENOrdering Facility: [facility] Address: [address] [place] [address] Performed By: #### 5 7021-8 ####[facility] LABCLIA [id number] [place] [address] [place] MCV (RBC) [Entitic vol] 94.6 fL Normal 80.0-100.0 [facility] Comment on above: Order Comment: Speci men Type: BLOOD SPECIMENOrdering Facility: [facility] Address: [address] [place] [address] Performed By: #### 5 7021-8 ####[facility] LABCLIA [id number] [place] [address] [place] Monocytes (Bld) [#/Vol] 0.44 10*3/uL Normal <0.87 [facility] Comment on above: Order Comment: Speci men Type: BLOOD SPECIMENOrdering Facility: [facility] Address: [address] [place] [address] Performed By: #### 5 7021-8 ####[facility] LABCLIA [id number] [place] [address] [place] Monocytes/100 WBC (Bld) 4.7 % Normal [facility] Comment on above: Order Comment: Speci men Type: BLOOD SPECIMENOrdering Facility: [facility] Address: [address] [place] [address] Performed By: #### 5 7021-8 ####[facility] LABCLIA [id number] [place] [address] [place] Neutrophils (Bld) [#/Vol] 8.11 10*3/uL High 1.45-7.50 [facility] Comment on above: Order Comment: Speci men Type: BLOOD SPECIMENOrdering Facility: [facility] Address: [address] [place] [address] Performed By: #### 5 7021-8 ####[facility] LABCLIA [id number] [place] [id number] [place] Neutrophils/100 WBC (Bld) 87.3 % Normal [facility] Comment on above: Order Comment: Speci men Type: BLOOD SPECIMENOrdering Facility: [facility] Address: [address] [place] [address] Performed By: #### 5 7021-8 ####[facility] LABCLIA [id number] [place] [address] [place] Nucleated RBC (Bld) [#/Vol] 10*3/uL Normal <0.01 [facility] Comment on above: Order Comment: Speci men Type: BLOOD SPECIMENOrdering Facility: [facility] Address: [address] [place] [address] Performed By: #### 5 7021-8 ####[facility] LABIA [id number] [place] [address] [place] Nucleated RBC/100 WBC (Bld) [Ratio] 0.0 /100 WBC Normal [facility] Comment on above: Order Comment: Speci men Type: BLOOD SPECIMENOrdering Facility: [facility] Address: [address] [place] [address] Performed By: #### 5 7021-8 ####[facility] LABIA [id number] [place] [address] [place] Platelet mean volume (Bld) [Entitic vol] 9.1 fL Normal 9.0-12.7 [facility] Comment on above: Order Comment: Speci men Type: BLOOD SPECIMENOrdering Facility: [facility] Address: [address] [place] [address] Performed By: #### 5 7021-8 ####[facility] LABIA [id number] [place] [address] [place] Platelets (Bld) [#/Vol] 511 10*3/uL High 150-400 [facility] Comment on above: Order Comment: Speci men Type: BLOOD SPECIMENOrdering Facility: [facility] Address: [address] [place] [address] Performed By: #### 5 7021-8 ####[facility] LABCLIA [id number] [place] [id number] [place] RBC (Bld) [#/Vol] 2.79 10*6/uL Low 4.20-6.00 [facility] Comment on above: Order Comment: Speci men Type: BLOOD SPECIMENOrdering Facility: [facility] Address: [address] [place] [address] Performed By: #### 5 7021-8 ####[facility] LABCLIA [id number] [address] [place] [address] [place] WBC (Bld) [#/Vol] 9.29 10*3/uL Normal 3.70-11.00 [facility] Comment on above: Order Comment: Speci men Type: BLOOD SPECIMENOrdering Facility: [facility] Address: [address] [place] [address] Performed By: #### 5 7021-8 ####[facility] LABCLIA [id number] [address] [address] [place] CONSULTon 10-23-2024 CONSULT Normal [facility] CONSULT PROGon 10-23-2024 CONSULT PROG Normal [facility] Comprehensive metabolic 2000 panelon 10-23-2024 Albumin [Mass/Vol] 2.5 g/dL Low 3.9-4.9 [facility] Comment on above: Order Comment: Speci men Type: BLOOD SPECIMENOrdering Facility: [facility] Address: [address] [place] [address] Performed By: #### 1 9123-9, 2777-1, 96314-6 ####[facility] LABCLIA [id number] [address] [address] [place] ALP [Catalytic activity/Vol] 258 U/L High 38-113 [facility] Comment on above: Order Comment: Speci men Type: BLOOD SPECIMENOrdering Facility: [facility] Address: [address] [place] [address] Performed By: #### 1 9123-9, 2777-1, 95790-2 ####[facility] LABCLIA [id number] [address] [place] [address] [place] ALT [Catalytic activity/Vol] 7 U/L Low 10-54 [facility] Comment on above: Order Comment: Speci men Type: BLOOD SPECIMENOrdering Facility: [facility] Address: [address] [place] [address] Performed By: #### 1 9123-9, 2776-04, ####[facility] LABCLIA [id number] [address] [address] [place] Anion gap [Moles/Vol] 9 mmol/L Normal 8-15 [facility] [place] Comment on above: Order Comment: Speci men Type: BLOOD SPECIMENOrdering Facility: [facility] Address: [address] [place] [address] Performed By: #### 1 9123-9, 27710-15, ####[facility] LABCLIA [id number] [place] [address] [place] AST [Catalytic activity/Vol] 6 U/L Low 14-40 [facility] Comment on above: Order Comment: Speci men Type: BLOOD SPECIMENOrdering Facility: [facility] Address: [address] [place] [address] Performed By: #### 1 9123-9, 2776-04, ####[facility] LABCLIA [id number] [address] [address] [place] Bilirubin [Mass/Vol] 0.3 mg/dL Normal 0.2-1.3 [facility] Comment on above: Order Comment: Speci men Type: BLOOD SPECIMENOrdering Facility: [facility] Address: [address] [place], [place] [address] Performed By: #### 1 9123-9, 2776-04, ####[facility] LABCLIA [id number] [address] [address] [place] Calcium [Mass/Vol] 8.6 mg/dL Normal 8.5-10.2 [facility] Comment on above: Order Comment: Speci men Type: BLOOD SPECIMENOrdering Facility: [facility] Address: [address] [place], [place] [address] Performed By: #### 1 9123-9, 27710-15, 15288-6 ####[facility] LABCLIA [id number] [address] [address] [place] Chloride [Moles/Vol] 103 mmol/L Normal 98-107 [facility] Comment on above: Order Comment: Speci men Type: BLOOD SPECIMENOrdering Facility: [facility] Address: [address] [place], [place] [address] Performed By: #### 1 9123-9, 27710-15, 73831-7 ####[facility] LABCLIA [id number] [place] [address] [place] CO2 [Moles/Vol] 21 mmol/L Low 22-30 [facility] Comment on above: Order Comment: Speci men Type: BLOOD SPECIMENOrdering Facility: [facility] Address: [address] [place] [address] Performed By: #### 1 9123-9, 27710-15, ####[facility] LABIA [id number] [place] [address] [place] Creatinine [Mass/Vol] 0.83 mg/dL Normal 0.73-1.22 [facility] [place] Comment on above: Order Comment: Speci men Type: BLOOD SPECIMENOrdering Facility: [facility] Address: [address] [place], [place] [address] Performed By: #### 1 9123-9, 27710-15, 78026-5 ####[facility] LABIA [id number] [place] [id number] [place] Creatinine and Glomerular filtration rate.predicted panel (S/P/Bld) 94 mL/min/1.73m??? Normal >=60 [facility] Comment on above: Order Comment: Speci men Type: BLOOD SPECIMENOrdering Facility: [facility] Address: [address] [place] [address] Result Comment: Varsha mated Glomerular Filtration Rate (eGFR) is calculated using the 2020 CKD-EPI creatinine equation. This equation utilizes serum creatinine, sex, and age as parameters. The creatinine assay has traceable calibration to isotope dilution-mass spectrometry. Refer to KDIGO guidelines for clinical interpretation. In patients with unstable renal function, e.g. those with acute kidney injury, the eGFR may not accurately reflect actual GFR. Performed By: #### 1 9123-9, 2777-, 51746-6 ####[facility] LABCLIA [id number] [address] [address] [place] Glucose [Mass/Vol] 117 mg/dL High 74-99 [facility] Comment on above: Order Comment: Mary flores Type: BLOOD SPECIMENOrdering Facility: [facility] Address: [address] [place] [address] Result Comment: The [place] [employer] (ADA) provides guidance for cutoff [...] Standards of Medical Care in Diabetes 2016, [place] [employer]. Diabetes Care. 2016.39(Suppl 1). Performed By: #### 1 9123-9, 2777-, 76360-5 ####[facility] LABIA [id number] [address] [address] [place] Potassium [Moles/Vol] 4.0 mmol/L Normal 3.7-5.1 [facility] Comment on above: Order Comment: Mary flores Type: BLOOD SPECIMENOrdering Facility: [facility] Address: [address] [place] [address] Performed By: #### 1 9123-9, 2777-1, 52858-9 ####[facility] LABIA [id number] [address] [address] [place] Protein [Mass/Vol] 5.4 g/dL Low 6.3-8.0 [facility] Comment on above: Order Comment: Speci men Type: BLOOD SPECIMENOrdering Facility: [facility] Address: [address] [place], [place] [address] Performed By: #### 1 9123-9, 2777, 01526-7 ####[facility] LABIA [id number] [place] [id number] [place] Sodium [Moles/Vol] 133 mmol/L Low 136-144 [facility] Comment on above: Order Comment: Speci men Type: BLOOD SPECIMENOrdering Facility: [facility] Address: [address] [place], [place] [address] Performed By: #### 1 9123-9, 27710-15, 69748-4 ####[facility] [id number] [place] [id number] [place] Urea nitrogen [Mass/Vol] 6 mg/dL Low 9-24 [facility] Comment on above: Order Comment: Speci men Type: BLOOD SPECIMENOrdering Facility: [facility] Address: [address] [place], [place] [address] Performed By: #### 1 9123-9, 27710-15, 98763-3 ####[facility] [id number] [address] [address] [place] Magnesium SerPl-mCncon 10-23 Magnesium [Mass/Vol] 1.7 mg/dL Normal 1.7-2.3 [facility] Comment on above: Order Comment: Speci men Type: BLOOD SPECIMENOrdering Facility: [facility] Address: [address] [place] [address] Performed By: #### 1 9123-9, 2777-1, 63848-7 ####[facility] LABCLIA [id number] [address] [address] [place] NUTRITIONon 10-23-2024 NUTRITION Normal [facility] Phosphate SerPl-mCncon 10-23 Phosphate [Mass/Vol] 3.5 mg/dL Normal 2.7-4.8 [facility] Comment on above: Order Comment: Speci men Type: BLOOD SPECIMENOrdering Facility: [facility] Address: [address] [place], [place] [address] Performed By: #### 1 9123-9, 2777-1, 76711-4 ####[facility] LABCLIA [id number] [address] [address] [place] THERAPY NTon 10-23-2024 THERAPY NT Normal [facility] TYPE + SCREENon 10-23-2024 ABO O Normal [facility] Comment on above: Order Comment: Speci men Type: BLOOD SPECIMENOrdering Facility: [facility] Address: [address] [place] [address] Performed By: #### T SCR ####[facility]ANKCLIA [id number] [place] [address] [place] Rh Nom (Bld) Positive Normal [facility] Comment on above: Order Comment: Speci men Type: BLOOD SPECIMENOrdering Facility: [facility] Address: [address] [place], [place] [address] Performed By: #### T SCR ####[facility] BANKCLIA [id number] [place] [id number] [place] TYPE AND SCREEN EXPIRATION 10/26/2024 23:59 Normal [facility] Comment on above: Order Comment: Speci men Type: BLOOD SPECIMENOrdering Facility: [facility] Address: [address] [place], [place] [address] Performed By: #### T SCR ####[facility] BLO[facility] BANKCLIA [id number] [place] [address] [place] Tacrolimus Bld-mCncon 2024 Tacrolimus (Bld) [Mass/Vol] 6.1 ng/mL Normal 5.0-20.0 [facility] Comment on above: Order Comment: Mary flores Type: BLOOD SPECIMENOrdering Facility: [facility] Address: [address] [place] [address] Result Comment: Keiko vidualized target levels for a given patient will [...] situation. Test performed by chemiluminescent immunoassay using [employer] Alinity i. Performed By: #### 1 1253-2 ####[facility] LABIA [id number] [place] [address] [place] CBC W Auto Differential pane l (Bld)on 10-22-2024 Basophils (Bld) [#/Vol] 0.05 10*3/uL Normal <0.11 [facility] Comment on above: Order Comment: Mary flores Type: BLOOD SPECIMENOrdering Facility: [facility] Address: [address] [place] [address] Performed By: #### 5 7021-8, 31113-3 ####[facility] LABIA [id number] [place] [address] [place] Basophils/100 WBC (Bld) 0.6 % Normal [facility] Comment on above: Order Comment: Mary flores Type: BLOOD SPECIMENOrdering Facility: [facility] Address: [address] [place] [address] Performed By: #### 5 7021-8, 82750-2 ####[facility] LABIA [id number] [place] [address] [place] Differential cell count method Nom (Bld) Auto Normal [facility] Comment on above: Order Comment: Speci men Type: BLOOD SPECIMENOrdering Facility: [facility] Address: [address] [place] [address] Performed By: #### 5 7021-8, 16968-0 ####[facility] LABCLIA [id number] [address], [place] [address] [place] Eosinophils (Bld) [#/Vol] 0.18 10*3/uL Normal <0.46 [facility] Comment on above: Order Comment: Speci men Type: BLOOD SPECIMENOrdering Facility: [facility] Address: [address] [place] [address] Performed By: #### 5 7021-8, 02159-5 ####[facility] LABCLIA [id number] [place] [address] [place] Eosinophils/100 WBC (Bld) 2.3 % Normal [facility] Comment on above: Order Comment: Speci men Type: BLOOD SPECIMENOrdering Facility: [facility] Address: [address] [place] [address] Performed By: #### 5 7021-8, 19796-5 ####[facility] LABCLIA [id number] [place] [address] [place] Erythrocyte distribution width (RBC) [Ratio] 17.1 % High 11.5-15.0 [facility] Comment on above: Order Comment: Speci men Type: BLOOD SPECIMENOrdering Facility: [facility] Address: [address] [place] [address] Performed By: #### 5 7021-8, 92242-8 ####[facility] LABCLIA [id number] [facility] [address], [place] [address] [place] Hematocrit (Bld) [Volume fraction] 23.7 % Low 39.0-51.0 [facility] Comment on above: Order Comment: Speci men Type: BLOOD SPECIMENOrdering Facility: [facility] Address: [address] [place] [address] Performed By: #### 5 7021-8, 35228-8 ####[facility] LABCLIA [id number] [address] [address] [place] Hemoglobin (Bld) [Mass/Vol] 7.6 g/dL Low 13.0-17.0 [facility] Comment on above: Order Comment: Speci men Type: BLOOD SPECIMENOrdering Facility: [facility] Address: [address] [place] [address] Performed By: #### 5 7021-8, 33013-5 ####[facility] LABCLIA [id number] [place] [address] [place] Immature granulocytes (Bld) [#/Vol] 0.11 10*3/uL High <0.10 [facility] Comment on above: Order Comment: Speci men Type: BLOOD SPECIMENOrdering Facility: [facility] Address: [address] [place] [address] Performed By: #### 5 7021-8, 01345-6 ####[facility] LABCLIA [id number] [place] [address] [place] Immature granulocytes/100 WBC (Bld) 1.4 % Normal [facility] Comment on above: Order Comment: Speci men Type: BLOOD SPECIMENOrdering Facility: [facility] Address: [address] [place] [address] Performed By: #### 5 7021-8, 67202-0 ####[facility] LABCLIA [id number] [place] [address] [place] Lymphocytes (Bld) [#/Vol] 0.30 10*3/uL Low 1.00-4.00 [facility] Comment on above: Order Comment: Speci men Type: BLOOD SPECIMENOrdering Facility: [facility] Address: [address] [place] [address] Performed By: #### 5 7021-8, 49474-6 ####[facility] LABCLIA [id number] [place] [address] [place] Lymphocytes/100 WBC (Bld) 3.9 % Normal [facility] Comment on above: Order Comment: Speci men Type: BLOOD SPECIMENOrdering Facility: [facility] Address: [address] [place] [address] Performed By: #### 5 7021-8, 32451-8 ####[facility] LABIA [id number] [place] [address] [place] MCH (RBC) [Entitic mass] 29.9 pg Normal 26.0-34.0 [facility] Comment on above: Order Comment: Speci men Type: BLOOD SPECIMENOrdering Facility: [facility] Address: [address] [place] [address] Performed By: #### 5 7021-8, 06630-9 ####[facility] LABIA [id number] [place] [address] [place] MCHC (RBC) [Mass/Vol] 32.1 g/dL Normal 30.5-36.0 [facility] Comment on above: Order Comment: Speci men Type: BLOOD SPECIMENOrdering Facility: [facility] Address: [address] [place] [address] Performed By: #### 5 7021-8, 57878-3 ####[facility] LABIA [id number] [place] [id number] [place] MCV (RBC) [Entitic vol] 93.3 fL Normal 80.0-100.0 [facility] Comment on above: Order Comment: Speci men Type: BLOOD SPECIMENOrdering Facility: [facility] Address: [address] [place] [address] Performed By: #### 5 7021-8, 33371-8 ####[facility] LABCLIA [id number] [place] [address] [place] Monocytes (Bld) [#/Vol] 0.38 10*3/uL Normal <0.87 [facility] Comment on above: Order Comment: Speci men Type: BLOOD SPECIMENOrdering Facility: [facility] Address: [address] [place] [address] Performed By: #### 5 7021-8, 73820-0 ####[facility] LABCLIA [id number] [place] [address] [place] Monocytes/100 WBC (Bld) 4.9 % Normal [facility] Comment on above: Order Comment: Speci men Type: BLOOD SPECIMENOrdering Facility: [facility] Address: [address] [place] [address] Performed By: #### 5 7021-8, 12385-8 ####[facility] LABIA [id number] [place] [address] [place] Neutrophils (Bld) [#/Vol] 6.72 10*3/uL Normal 1.45-7.50 [facility] Comment on above: Order Comment: Speci men Type: BLOOD SPECIMENOrdering Facility: [facility] Address: [address] [place] [address] Performed By: #### 5 7021-8, 03528-9 ####[facility] LABCLIA [id number] [place] [address] [place] Neutrophils/100 WBC (Bld) 86.9 % Normal [facility] Comment on above: Order Comment: Speci men Type: BLOOD SPECIMENOrdering Facility: [facility] Address: [address] [place] [address] Performed By: #### 5 7021-8, 41139-0 ####[facility] LABCLIA [id number] [place] [address] [place] Nucleated RBC (Bld) [#/Vol] 10*3/uL Normal <0.01 [facility] Comment on above: Order Comment: Speci men Type: BLOOD SPECIMENOrdering Facility: [facility] Address: [address] [place] [address] Performed By: #### 5 7021-8, 52414-0 ####[facility] LABCLIA [id number] [place] [address] [place] Nucleated RBC/100 WBC (Bld) [Ratio] 0.0 /100 WBC Normal [facility] Comment on above: Order Comment: Speci men Type: BLOOD SPECIMENOrdering Facility: [facility] Address: [address] [place] [address] Performed By: #### 5 7021-8, 61401-1 ####[facility] LABCLIA [id number] [place] [address] [place] Platelet mean volume (Bld) [Entitic vol] 9.0 fL Normal 9.0-12.7 [facility] Comment on above: Order Comment: Speci men Type: BLOOD SPECIMENOrdering Facility: [facility] Address: [address] [place] [address] Performed By: #### 5 7021-8, 33527-3 ####[facility] LABIA [id number] [place] [address] [place] Platelets (Bld) [#/Vol] 465 10*3/uL High 150-400 [facility] Comment on above: Order Comment: Speci men Type: BLOOD SPECIMENOrdering Facility: [facility] Address: [address] [place] [address] Performed By: #### 5 7021-8, 33350-9 ####[facility] LABCLIA [id number] [place] [id number] [place] RBC (Bld) [#/Vol] 2.54 10*6/uL Low 4.20-6.00 [facility] Comment on above: Order Comment: Speci men Type: BLOOD SPECIMENOrdering Facility: [facility] Address: [address] [place] [address] Performed By: #### 5 7021-8, 04052-4 ####[facility] LABCLIA [id number] [address] [place] [address] [place] WBC (Bld) [#/Vol] 7.74 10*3/uL Normal 3.70-11.00 [facility] Comment on above: Order Comment: Speci men Type: BLOOD SPECIMENOrdering Facility: [facility] Address: [address] [place] [address] Performed By: #### 5 7021-8, 97440-2 ####[facility] LABCLIA [id number] [place] [address] [place] CONSULTon 10-22-2024 CONSULT Normal [facility] CONSULT Normal [facility] CONSULT PROGon 10-22-2024 CONSULT PROG Normal [facility] Comprehensive metabolic 2000 panelon 10-22-2024 Albumin [Mass/Vol] 2.3 g/dL Low 3.9-4.9 [facility] Comment on above: Order Comment: Speci men Type: BLOOD SPECIMENOrdering Facility: [facility] Address: [address] [place] [address] Performed By: #### 2 777-1, , ####[facility] LABCLIA [id number] [address] [place] [address] [place] ALP [Catalytic activity/Vol] 249 U/L High 38-113 [facility] Comment on above: Order Comment: Speci men Type: BLOOD SPECIMENOrdering Facility: [facility] Address: [address] [place] [address] Performed By: #### 2 777-1, 47894-0, 83967-2 ####[facility] LABCLIA [id number] [address] [address] [place] ALT [Catalytic activity/Vol] 8 U/L Low 10-54 [facility] Comment on above: Order Comment: Speci men Type: BLOOD SPECIMENOrdering Facility: [facility] Address: [address] [place], [place] [address] Performed By: #### 2 777-1, , ####[facility] LABCLIA [id number] [place] [id number] [place] Anion gap [Moles/Vol] 10 mmol/L Normal 8-15 [facility] Comment on above: Order Comment: Speci men Type: BLOOD SPECIMENOrdering Facility: [facility] Address: [address] [place] [address] Performed By: #### 2 777-1, , ####[facility] LABCLIA [id number] [place] [address] [place] AST [Catalytic activity/Vol] 7 U/L Low 14-40 [facility] Comment on above: Order Comment: Speci men Type: BLOOD SPECIMENOrdering Facility: [facility] Address: [address] [place] [address] Performed By: #### 2 777-1, , ####[facility] LABCLIA [id number] [place] [id number] [place] Bilirubin [Mass/Vol] 0.2 mg/dL Normal 0.2-1.3 [facility] Comment on above: Order Comment: Speci men Type: BLOOD SPECIMENOrdering Facility: [facility] Address: [address] [place] [address] Performed By: #### 2 777-1, , ####[facility] LABCLIA [id number] [address] [address] [place] Calcium [Mass/Vol] 8.3 mg/dL Low 8.5-10.2 [facility] Comment on above: Order Comment: Speci men Type: BLOOD SPECIMENOrdering Facility: [facility] Address: [address] [place] [address] Performed By: #### 2 777-1, , ####[facility] LABCLIA [id number] [facility] [address] [address] [place] Chloride [Moles/Vol] 102 mmol/L Normal 98-107 [facility] Comment on above: Order Comment: Speci men Type: BLOOD SPECIMENOrdering Facility: [facility] Address: [address] [place], [place] [address] Performed By: #### 2 777-1, , ####[facility] LABCLIA [id number] [address] [address] [place] CO2 [Moles/Vol] 20 mmol/L Low 22-30 [facility] Comment on above: Order Comment: Speci men Type: BLOOD SPECIMENOrdering Facility: [facility] Address: [address] [place], [place] [address] Performed By: #### 2 777-1, , ####[facility] LABCLIA [id number] [address] [address] [place] Creatinine [Mass/Vol] 0.87 mg/dL Normal 0.73-1.22 [facility] Comment on above: Order Comment: Speci men Type: BLOOD SPECIMENOrdering Facility: [facility] Address: [address] [place] [address] Performed By: #### 2 777-1, , ####[facility] LABCLIA [id number] [address] [address] [place] Creatinine and Glomerular filtration rate.predicted panel (S/P/Bld) 92 mL/min/1.73m??? Normal >=60 [facility] Comment on above: Order Comment: Speci men Type: BLOOD SPECIMENOrdering Facility: [facility] Address: [address] [place] [id number] Result Comment: Varsha mated Glomerular Filtration Rate (eGFR) is calculated using the 2020 CKD-EPI creatinine equation. This equation utilizes serum creatinine, sex, and age as parameters. The creatinine assay has traceable calibration to isotope dilution-mass spectrometry. Refer to KDIGO guidelines for clinical interpretation. In patients with unstable renal function, e.g. those with acute kidney injury, the eGFR may not accurately reflect actual GFR. Performed By: #### 2 777-1, 58974-6, ####[facility] LABIA [id number] [place] [id number] [place] Glucose [Mass/Vol] 158 mg/dL High 74-99 [facility] Comment on above: Order Comment: Mary flores Type: BLOOD SPECIMENOrdering Facility: [facility] Address: [address] [place] [address] Result Comment: The [place] [employer] (ADA) provides guidance for cutoff [...] Standards of Medical Care in Diabetes 2016, [place] [employer]. Diabetes Care. 2016.39(Suppl 1). Performed By: #### 2 777-1, 22954-8, ####[facility] LABIA [id number] [place] [id number] [place] Potassium [Moles/Vol] 3.8 mmol/L Normal 3.7-5.1 [facility] [place] Comment on above: Order Comment: Mary flores Type: BLOOD SPECIMENOrdering Facility: [facility] Address: [address] [place], [place] [address] Performed By: #### 2 777-1, 21702-9, ####[facility] LABIA [id number] [address] [address] [place] Protein [Mass/Vol] 4.9 g/dL Low 6.3-8.0 [facility] Comment on above: Order Comment: Speci men Type: BLOOD SPECIMENOrdering Facility: [facility] Address: [address] [place] [address] Performed By: #### 2 777-1, 81111-3, ####[facility] LABIA [id number] [place] [id number] [place] Sodium [Moles/Vol] 132 mmol/L Low 136-144 [facility] Comment on above: Order Comment: Speci men Type: BLOOD SPECIMENOrdering Facility: [facility] Address: [address] [place] [address] Performed By: #### 2 777-1, , ####[facility] LABIA [id number] [place] [id number] [place] Urea nitrogen [Mass/Vol] 7 mg/dL Low 9-24 [facility] Comment on above: Order Comment: Speci men Type: BLOOD SPECIMENOrdering Facility: [facility] Address: [address] [place] [address] Performed By: #### 2 777-1, , ####[facility] LABIA [id number] [address] [address] [place] Magnesium SerPl-mCncon 10-22 Magnesium [Mass/Vol] 1.6 mg/dL Low 1.7-2.3 [facility] Comment on above: Order Comment: Speci men Type: BLOOD SPECIMENOrdering Facility: [facility] Address: [address] [place] [place] [id number] Performed By: #### 2 777-1, 23600-9, 84630-2 ####[facility] LABCLIA [id number] [place] [id number] [place] Phosphate SerPl-ncon 10-22 Phosphate [Mass/Vol] 3.2 mg/dL Normal 2.7-4.8 [facility] Comment on above: Order Comment: Specdolores flores Type: BLOOD SPECIMENOrdering Facility: [facility] Address: [address] [place] [address] Performed By: #### 2 777-1, 43077-9, ####[facility] LABCLIA [id number] [address] [place] [facility] THERAPY NTon 10-22-2024 THERAPY NT Normal [facility] THERAPY NT Normal [facility] THERAPY NT Normal [facility] Tacrolimus Bld-ncon 2024 Tacrolimus (Bld) [Mass/Vol] 10.5 ng/mL Normal 5.0-20.0 [facility] Comment on above: Order Comment: Mary flores Type: BLOOD SPECIMENOrdering Facility: [facility] Address: [address] [place] [address] Result Comment: Keiko vidualized target levels for a given patient will [...] situation. Test performed by chemiluminescent immunoassay using [employer] Al[employer] i. Performed By: #### 5 7021-8, 12991-4 ####[facility] LABCLIA [id number] [place] [address] [place] Tacrolimus (Bld) [Mass/Vol] 10.6 ng/mL Normal 5.0-20.0 [facility] Comment on above: Order Comment: Speci men Type: BLOOD SPECIMENOrdering Facility: [facility] Address: [address] [place] [address] Result Comment: Keiko vidualized target levels for a given patient will [...] situation. Test performed by chemiluminescent immunoassay using [employer] Alinity i. Performed By: #### 1 1253-2 ####[facility] LABCLIA [id number] [place] [address] [place] CASE MANAGEMon 10-21-2024 CASE MANAGEM Normal [facility] CBC W Auto Differential pane l (Bld)on 10-21-2024 Basophils (Bld) [#/Vol] 0.04 10*3/uL Normal <0.11 [facility] Comment on above: Order Comment: Speci men Type: BLOOD SPECIMENOrdering Facility: [facility] Address: [address] [place] [address] Performed By: #### 5 7021-8 ####[facility] LABCLIA [id number] [place] [address] [place] Basophils/100 WBC (Bld) 0.6 % Normal [facility] Comment on above: Order Comment: Speci men Type: BLOOD SPECIMENOrdering Facility: [facility] Address: [address] [place] [address] Performed By: #### 5 7021-8 ####[facility] LABCLIA [id number] [place] [address] [place] Differential cell count method Nom (Bld) Auto Normal [facility] Comment on above: Order Comment: Speci men Type: BLOOD SPECIMENOrdering Facility: [facility] Address: [address] [place] [address] Performed By: #### 5 7021-8 ####[facility] LABCLIA [id number] [address], [place] [address] [place] Eosinophils (Bld) [#/Vol] 0.23 10*3/uL Normal <0.46 [facility] Comment on above: Order Comment: Speci men Type: BLOOD SPECIMENOrdering Facility: [facility] Address: [address] [place] [address] Performed By: #### 5 7021-8 ####[facility] LABCLIA [id number] [address], [place] [address] [place] Eosinophils/100 WBC (Bld) 3.3 % Normal [facility] Comment on above: Order Comment: Speci men Type: BLOOD SPECIMENOrdering Facility: [facility] Address: [address] [place] [address] Performed By: #### 5 7021-8 ####[facility] LABCLIA [id number] [address], [place] [address] [place] Erythrocyte distribution width (RBC) [Ratio] 17.1 % High 11.5-15.0 [facility] Comment on above: Order Comment: Speci men Type: BLOOD SPECIMENOrdering Facility: [facility] Address: [address] [place] [address] Performed By: #### 5 7021-8 ####[facility] LABCLIA [id number] [place] [address] [place] Hematocrit (Bld) [Volume fraction] 22.9 % Low 39.0-51.0 [facility] Comment on above: Order Comment: Speci men Type: BLOOD SPECIMENOrdering Facility: [facility] Address: [address] [place] [address] Performed By: #### 5 7021-8 ####[facility] LABCLIA [id number] [place] [address] [place] Hemoglobin (Bld) [Mass/Vol] 7.6 g/dL Low 13.0-17.0 [facility] Comment on above: Order Comment: Speci men Type: BLOOD SPECIMENOrdering Facility: [facility] Address: [address] [place] [address] Performed By: #### 5 7021-8 ####[facility] LABCLIA [id number] [place] [address] [place] Immature granulocytes (Bld) [#/Vol] 0.09 10*3/uL Normal <0.10 [facility] Comment on above: Order Comment: Speci men Type: BLOOD SPECIMENOrdering Facility: [facility] Address: [address] [place] [address] Performed By: #### 5 7021-8 ####[facility] LABCLIA [id number] [place] [address] [place] Immature granulocytes/100 WBC (Bld) 1.3 % Normal [facility] Comment on above: Order Comment: Speci men Type: BLOOD SPECIMENOrdering Facility: [facility] Address: [address] [place] [address] Performed By: #### 5 7021-8 ####[facility] LABCLIA [id number] [place] [address] [place] Lymphocytes (Bld) [#/Vol] 0.29 10*3/uL Low 1.00-4.00 [facility] Comment on above: Order Comment: Speci men Type: BLOOD SPECIMENOrdering Facility: [facility] Address: [address] [place] [address] Performed By: #### 5 7021-8 ####[facility] LABCLIA [id number] [place] [address] [place] Lymphocytes/100 WBC (Bld) 4.2 % Normal [facility] Comment on above: Order Comment: Speci men Type: BLOOD SPECIMENOrdering Facility: [facility] Address: [address] [place] [address] Performed By: #### 5 7021-8 ####[facility] LABIA [id number] [place] [address] [place] MCH (RBC) [Entitic mass] 30.4 pg Normal 26.0-34.0 [facility] Comment on above: Order Comment: Speci men Type: BLOOD SPECIMENOrdering Facility: [facility] Address: [address] [place] [address] Performed By: #### 5 7021-8 ####[facility] [id number] [place] [address] [place] MCHC (RBC) [Mass/Vol] 33.2 g/dL Normal 30.5-36.0 [facility] Comment on above: Order Comment: Speci men Type: BLOOD SPECIMENOrdering Facility: [facility] Address: [address] [place] [address] Performed By: #### 5 7021-8 ####[facility] [id number] [place] [address] [place] MCV (RBC) [Entitic vol] 91.6 fL Normal 80.0-100.0 [facility] Comment on above: Order Comment: Speci men Type: BLOOD SPECIMENOrdering Facility: [facility] Address: [address] [place] [address] Performed By: #### 5 7021-8 ####[facility] [id number] [place] [address] [place] Monocytes (Bld) [#/Vol] 0.28 10*3/uL Normal <0.87 [facility] Comment on above: Order Comment: Speci men Type: BLOOD SPECIMENOrdering Facility: [facility] Address: [address] [place] [address] Performed By: #### 5 7021-8 ####[facility] LABIA [id number] [address] [place] [address] [place] Monocytes/100 WBC (Bld) 4.1 % Normal [facility] Comment on above: Order Comment: Speci men Type: BLOOD SPECIMENOrdering Facility: [facility] Address: [address] [place] [address] Performed By: #### 5 7021-8 ####[facility] LABCLIA [id number] [place] [address] [place] Neutrophils (Bld) [#/Vol] 5.98 10*3/uL Normal 1.45-7.50 [facility] Comment on above: Order Comment: Speci men Type: BLOOD SPECIMENOrdering Facility: [facility] Address: [address] [place] [address] Performed By: #### 5 7021-8 ####[facility] LABCLIA [id number] [place] [address] [place] Neutrophils/100 WBC (Bld) 86.5 % Normal [facility] Comment on above: Order Comment: Speci men Type: BLOOD SPECIMENOrdering Facility: [facility] Address: [address] [place] [address] Performed By: #### 5 7021-8 ####[facility] LABCLIA [id number] [place] [address] [place] Nucleated RBC (Bld) [#/Vol] 10*3/uL Normal <0.01 [facility] Comment on above: Order Comment: Speci men Type: BLOOD SPECIMENOrdering Facility: [facility] Address: [address] [place] [address] Performed By: #### 5 7021-8 ####[facility] LABCLIA [id number] [place] [id number] [place] Nucleated RBC/100 WBC (Bld) [Ratio] 0.0 /100 WBC Normal [facility] Comment on above: Order Comment: Speci men Type: BLOOD SPECIMENOrdering Facility: [facility] Address: [address] [place] [address] Performed By: #### 5 7021-8 ####[facility] LABIA [id number] [place] [address] [place] Platelet mean volume (Bld) [Entitic vol] 9.1 fL Normal 9.0-12.7 [facility] Comment on above: Order Comment: Speci men Type: BLOOD SPECIMENOrdering Facility: [facility] Address: [address] [place] [address] Performed By: #### 5 7021-8 ####[facility] LABIA [id number] [place] [address] [place] Platelets (Bld) [#/Vol] 404 10*3/uL High 150-400 [facility] Comment on above: Order Comment: Speci men Type: BLOOD SPECIMENOrdering Facility: [facility] Address: [address] [place] [address] Performed By: #### 5 7021-8 ####[facility] LABIA [id number] [place] [address] [place] RBC (Bld) [#/Vol] 2.50 10*6/uL Low 4.20-6.00 [facility] Comment on above: Order Comment: Speci men Type: BLOOD SPECIMENOrdering Facility: [facility] Address: [address] [place] [address] Performed By: #### 5 7021-8 ####[facility] LABCLIA [id number] [place] [id number] [place] WBC (Bld) [#/Vol] 6.91 10*3/uL Normal 3.70-11.00 [facility] Comment on above: Order Comment: Speci men Type: BLOOD SPECIMENOrdering Facility: [facility] Address: [address] [place] [address] Performed By: #### 5 7021-8 ####[facility] LABCLIA [id number] [place] [address] [place] CONSULT PROGon 10-21-2024 CONSULT PROG Normal [facility] CYTOMEGALOVIRUS (CMV) DNA, Q UANTITATIVE PCR, PLASMAon 10-21-2024 CMV DNA JESSICA+probe [#/Vol] 293 IU/mL High [facility] Comment on above: Order Comment: Speci men Type: BLOOD SPECIMENOrdering Facility: [facility] Address: [address] [place] [address] Performed By: #### C MVQNT ####[facility] LABCLIA [id number] [place] [address] [place] CMV DNA JESSICA+probe [Log #/Vol] 2.47 log IU/mL High [facility] Comment on above: Order Comment: Speci men Type: BLOOD SPECIMENOrdering Facility: [facility] Address: [address] [place] [address] Performed By: #### C MVQNT ####[facility] LABCLIA [id number] [place] [address] [place] CMV DNA JESSICA+probe Qn (P) Detected Abnormal Not Detected [facility] Comment on above: Order Comment: Speci men Type: BLOOD SPECIMENOrdering Facility: [facility] Address: [address] [place] [address] Performed By: #### C MVQNT ####[facility] LABCLIA [id number] [place] [id number] [place] Comprehensive metabolic 2000 panelon 10-21-2024 Albumin [Mass/Vol] 2.1 g/dL Low 3.9-4.9 [facility] Comment on above: Order Comment: Speci men Type: BLOOD SPECIMENOrdering Facility: [facility] Address: [address] [place] [address] Performed By: #### 1 9123-9, 2777-1, 36839-6 ####[facility] LABCLIA [id number] [address] [address] [place] ALP [Catalytic activity/Vol] 259 U/L High 38-113 [facility] Comment on above: Order Comment: Speci men Type: BLOOD SPECIMENOrdering Facility: [facility] Address: [address] [place] [address] Performed By: #### 1 9123-9, 2777, 37540-1 ####[facility] LABCLIA [id number] [place] [id number] [place] ALT [Catalytic activity/Vol] 7 U/L Low 10-54 [facility] Comment on above: Order Comment: Speci men Type: BLOOD SPECIMENOrdering Facility: [facility] Address: [address] [place] [address] Performed By: #### 1 9123-9, 27710-15, 91723-1 ####[facility] LABCLIA [id number] [place] [address] [place] Anion gap [Moles/Vol] 9 mmol/L Normal 8-15 [facility] Comment on above: Order Comment: Speci men Type: BLOOD SPECIMENOrdering Facility: [facility] Address: [address] [place] [address] Performed By: #### 1 9123-9, 27710-15, 39948-9 ####[facility] LABCLIA [id number] [place] [address] [place] AST [Catalytic activity/Vol] 7 U/L Low 14-40 [facility] Comment on above: Order Comment: Speci men Type: BLOOD SPECIMENOrdering Facility: [facility] Address: [address] [place] [address] Performed By: #### 1 9123-9, 27710-15, 04169-7 ####[facility] LABCLIA [id number] [address] [address] [place] Bilirubin [Mass/Vol] 0.3 mg/dL Normal 0.2-1.3 [facility] Comment on above: Order Comment: Speci men Type: BLOOD SPECIMENOrdering Facility: [facility] Address: [address] [place] [address] Performed By: #### 1 9123-9, 2776-04, 01827-3 ####[facility] LABCLIA [id number] [address] [address] [place] Calcium [Mass/Vol] 8.1 mg/dL Low 8.5-10.2 [facility] Comment on above: Order Comment: Speci men Type: BLOOD SPECIMENOrdering Facility: [facility] Address: [address] [place] [address] Performed By: #### 1 9123-9, 2776-04, ####[facility] LABCLIA [id number] [address] [address] [place] Chloride [Moles/Vol] 101 mmol/L Normal 98-107 [facility] Comment on above: Order Comment: Speci men Type: BLOOD SPECIMENOrdering Facility: [facility] Address: [address] [place] [address] Performed By: #### 1 9123-9, 2776-04, ####[facility] LABCLIA [id number] [address] [address] [place] CO2 [Moles/Vol] 22 mmol/L Normal 22-30 [facility] Comment on above: Order Comment: Speci men Type: BLOOD SPECIMENOrdering Facility: [facility] Address: [address] [place] [address] Performed By: #### 1 9123-9, 2776-04, 31107-0 ####[facility] LABCLIA [id number] [facility] [address] [place] [address] [place] Creatinine [Mass/Vol] 0.93 mg/dL Normal 0.73-1.22 [facility] Comment on above: Order Comment: Mary flores Type: BLOOD SPECIMENOrdering Facility: [facility] Address: [address] [place] [address] Performed By: #### 1 9123-9, 2777-1, 34519-6 ####[facility] LABCLIA [id number] [place] [id number] [place] Creatinine and Glomerular filtration rate.predicted panel (S/P/Bld) 88 mL/min/1.73m??? Normal >=60 [facility] Comment on above: Order Comment: Mary flores Type: BLOOD SPECIMENOrdering Facility: [facility] Address: [address] [place] [address] Result Comment: Varsha mated Glomerular Filtration Rate (eGFR) is calculated using the 2020 CKD-EPI creatinine equation. This equation utilizes serum creatinine, sex, and age as parameters. The creatinine assay has traceable calibration to isotope dilution-mass spectrometry. Refer to KDIGO guidelines for clinical interpretation. In patients with unstable renal function, e.g. those with acute kidney injury, the eGFR may not accurately reflect actual GFR. Performed By: #### 1 9123-9, 2777-, 38019-7 ####[facility] LABCLIA [id number] [place] [id number] [place] Glucose [Mass/Vol] 123 mg/dL High 74-99 [facility] [facility] Comment on above: Order Comment: Mary flores Type: BLOOD SPECIMENOrdering Facility: [facility] Address: [address] [place] [address] Result Comment: The [place] [employer] (ADA) provides guidance for cutoff [...] Standards of Medical Care in Diabetes 2016, [place] [employer]. Diabetes Care. 2016.39(Suppl 1). Performed By: #### 1 9123-9, 2776-04, ####[facility] LABCLIA [id number] [address] [address] [place] Potassium [Moles/Vol] 4.0 mmol/L Normal 3.7-5.1 [facility] [place] Comment on above: Order Comment: Speci men Type: BLOOD SPECIMENOrdering Facility: [facility] Address: [address] [place], [place] [address] Performed By: #### 1 9123-9, 2776-04, ####[facility] LABCLIA [id number] [address] [address] [place] Protein [Mass/Vol] 4.6 g/dL Low 6.3-8.0 [facility] Comment on above: Order Comment: Speci men Type: BLOOD SPECIMENOrdering Facility: [facility] Address: [address] [place] [address] Performed By: #### 1 9123-9, 2776-04, ####[facility] LABCLIA [id number] [address] [address] [place] Sodium [Moles/Vol] 132 mmol/L Low 136-144 [facility] Comment on above: Order Comment: Speci men Type: BLOOD SPECIMENOrdering Facility: [facility] Address: [address] [place] [address] Performed By: #### 1 9123-9, 2776-04, ####[facility] LABCLIA [id number] [address] [address] [place] Urea nitrogen [Mass/Vol] 8 mg/dL Low 9-24 [facility] Comment on above: Order Comment: Speci men Type: BLOOD SPECIMENOrdering Facility: [facility] Address: [address] [place] [address] Performed By: #### 1 9123-9, 2777-1, 34732-2 ####[facility] LABIA [id number] [place] [id number] [place] Magnesium SerPl-mCncon 10-21 Magnesium [Mass/Vol] 1.5 mg/dL Low 1.7-2.3 [facility] Comment on above: Order Comment: Speci men Type: BLOOD SPECIMENOrdering Facility: [facility] Address: [address] [place] [address] Performed By: #### 1 9123-9, 2777-1, 61816-7 ####[facility] [id number] [address] [place] PT panel Coag (PPP)on 2024 INR Coag (PPP) [Relative time] 1.1 {INR} Normal 0.9-1.3 [facility] Comment on above: Order Comment: Specdolores flores Type: BLOOD SPECIMENOrdering Facility: [facility] Address: [address] [place] [address] Result Comment: Anny min K Antagonist (VKA) Therapeutic Range: INR 2 to 3 (Target INR of 2.5)Note: For patients treated with VKA drugs, such as warfarin, the [place] [employer] 2012 Guideline recommends a therapeutic INR range of 2 to 3 (target INR of 2.5). This recommendation includes high-risk patients with antiphospholipid syndrome with previous arterial or venous thromboembolism, current-generation mechanical or bioprosthetic aortic heart valve replacement.Note: Patients with mechanical aortic valve replacement and additional risk factors for thromboembolic events (atrial fibrillation, previous thromboembolism, LV dysfunction, hypercoagulable conditions) or an older generation mechanical AVR (i.e., ball in-Cage) or any mechanical MVR should have a INR therapeutic range of 2.5 to 3.5 (target INR of 3).Brandon GH, et al. Chest 2012, 141:7S-47SNishimura RA, et al. JACC 2017, 70: 252-289 Performed By: #### 3 4528-0 ####[facility] [id number] [place] [id number] [place] PT Coag (PPP) [Time] 12.0 s Normal 9.7-13.0 [facility] Comment on above: Order Comment: Speci men Type: BLOOD SPECIMENOrdering Facility: [facility] Address: [address] [place] [address] Performed By: #### 3 4528-0 ####[facility] [id number] [place] [id number] [facility] [place] Phosphate SerPl-[facility] 10-21 Phosphate [Mass/Vol] 3.4 mg/dL Normal 2.7-4.8 [facility] Comment on above: Order Comment: Speci mark Type: BLOOD SPECIMENOrdering Facility: [facility] Address: [address] [place] [address] Performed By: #### 1 9123-9, 2777-1, 40194-5 ####[facility] [id number] [address] [place] THERAPY NTon 10-21-2024 THERAPY NT Normal [facility] Tacrolimus Bld-mCncon 2024 Tacrolimus (Bld) [Mass/Vol] 9.9 ng/mL Normal 5.0-20.0 [facility] Comment on above: Order Comment: Speci mark Type: BLOOD SPECIMENOrdering Facility: [facility] Address: [address] [place] [address] Result Comment: Keiko vidualized target levels for a given patient will [...] situation. Test performed by chemiluminescent immunoassay using [employer] i. Performed By: #### 1 1253-2 ####[facility] LABCLIA [id number] [place] [address] [place] Tacrolimus (Bld) [Mass/Vol] 9.4 ng/mL Normal 5.0-20.0 [facility] Comment on above: Order Comment: Speci men Type: BLOOD SPECIMENOrdering Facility: [facility] Address: [address] [place] [address] Result Comment: Keiko vidualized target levels for a given patient will [...] situation. Test performed by chemiluminescent immunoassay using [employer] i. Performed By: #### 1 1253-2 ####[facility] LABCLIA [id number] [place] [address] [place] Amylase SerPl-cCncon 025 Amylase [Catalytic activity/Vol] 9 U/L Low 30-104 [facility] Comment on above: Order Comment: Mary flores Type: BLOOD SPECIMENOrdering Facility: [facility] Address: [address] [place] [address] Performed By: #### 1 798-8, 3040-3 ####[facility] LABCLIA [id number] [place] [id number] [place] CBC W Auto Differential pane l (Bld)on 10-20-2024 Basophils (Bld) [#/Vol] 0.04 10*3/uL Normal <0.11 [facility] Comment on above: Order Comment: Dimitryi mark Type: BLOOD SPECIMENOrdering Facility: [facility] Address: [address] [place] [address] Performed By: #### 5 7021-8 ####[facility] LABCLIA [id number] [place] [address] [place] Basophils/100 WBC (Bld) 0.5 % Normal [facility] Comment on above: Order Comment: Speci men Type: BLOOD SPECIMENOrdering Facility: [facility] Address: [address] [place] [address] Performed By: #### 5 7021-8 ####[facility] LABCLIA [id number] [place] [address] [place] Differential cell count method Nom (Bld) Auto Normal [facility] Comment on above: Order Comment: Speci men Type: BLOOD SPECIMENOrdering Facility: [facility] Address: [address] [place] [address] Performed By: #### 5 7021-8 ####[facility] LABCLIA [id number] [place] [address] [place] Eosinophils (Bld) [#/Vol] 0.22 10*3/uL Normal <0.46 [facility] Comment on above: Order Comment: Speci men Type: BLOOD SPECIMENOrdering Facility: [facility] Address: [address] [place] [address] Performed By: #### 5 7021-8 ####[facility] LABCLIA [id number] [place] [address] [place] Eosinophils/100 WBC (Bld) 2.7 % Normal [facility] Comment on above: Order Comment: Speci men Type: BLOOD SPECIMENOrdering Facility: [facility] Address: [address] [place] [address] Performed By: #### 5 7021-8 ####[facility] LABCLIA [id number] [place] [address] [place] Erythrocyte distribution width (RBC) [Ratio] 17.5 % High 11.5-15.0 [facility] Comment on above: Order Comment: Speci men Type: BLOOD SPECIMENOrdering Facility: [facility] Address: [address] [place] [address] Performed By: #### 5 7021-8 ####[facility] LABCLIA [id number] [place] [address] [place] Hematocrit (Bld) [Volume fraction] 19.7 % Low 39.0-51.0 [facility] Comment on above: Order Comment: Speci men Type: BLOOD SPECIMENOrdering Facility: [facility] Address: [address] [place] [address] Performed By: #### 5 7021-8 ####[facility] LABCLIA [id number] [place] [address] [place] Hemoglobin (Bld) [Mass/Vol] 6.3 g/dL Low 13.0-17.0 [facility] Comment on above: Order Comment: Speci men Type: BLOOD SPECIMENOrdering Facility: [facility] Address: [address] [place] [address] Performed By: #### 5 7021-8 ####[facility] LABCLIA [id number] [place] [address] [place] Immature granulocytes (Bld) [#/Vol] 0.12 10*3/uL High <0.10 [facility] Comment on above: Order Comment: Speci men Type: BLOOD SPECIMENOrdering Facility: [facility] Address: [address] [place] [address] Performed By: #### 5 7021-8 ####[facility] LABCLIA [id number] [place] [address] [place] Immature granulocytes/100 WBC (Bld) 1.5 % Normal [facility] Comment on above: Order Comment: Speci men Type: BLOOD SPECIMENOrdering Facility: [facility] Address: [address] [place] [address] Performed By: #### 5 7021-8 ####[facility] LABCLIA [id number] [place] [address] [place] Lymphocytes (Bld) [#/Vol] 0.36 10*3/uL Low 1.00-4.00 [facility] Comment on above: Order Comment: Speci men Type: BLOOD SPECIMENOrdering Facility: [facility] Address: [address] [place] [address] Performed By: #### 5 7021-8 ####[facility] LABCLIA [id number] [place] [address] [place] Lymphocytes/100 WBC (Bld) 4.4 % Normal [facility] Comment on above: Order Comment: Speci men Type: BLOOD SPECIMENOrdering Facility: [facility] Address: [address] [place] [address] Performed By: #### 5 7021-8 ####[facility] LABCLIA [id number] [place] [address] [place] MCH (RBC) [Entitic mass] 29.6 pg Normal 26.0-34.0 [facility] Comment on above: Order Comment: Speci men Type: BLOOD SPECIMENOrdering Facility: [facility] Address: [address] [place] [address] Performed By: #### 5 7021-8 ####[facility] LABCLIA [id number] [place] [address] [place] MCHC (RBC) [Mass/Vol] 32.0 g/dL Normal 30.5-36.0 [facility] [place] Comment on above: Order Comment: Speci men Type: BLOOD SPECIMENOrdering Facility: [facility] Address: [address] [place] [address] Performed By: #### 5 7021-8 ####[facility] LABCLIA [id number] [place] [address] [place] MCV (RBC) [Entitic vol] 92.5 fL Normal 80.0-100.0 [facility] Comment on above: Order Comment: Speci men Type: BLOOD SPECIMENOrdering Facility: [facility] Address: [address] [place] [address] Performed By: #### 5 7021-8 ####[facility] LABCLIA [id number] [address] [address] [place] Monocytes (Bld) [#/Vol] 0.34 10*3/uL Normal <0.87 [facility] Comment on above: Order Comment: Speci men Type: BLOOD SPECIMENOrdering Facility: [facility] Address: [address] [place] [address] Performed By: #### 5 7021-8 ####[facility] LABCLIA [id number] [place] [address] [place] Monocytes/100 WBC (Bld) 4.2 % Normal [facility] Comment on above: Order Comment: Speci men Type: BLOOD SPECIMENOrdering Facility: [facility] Address: [address] [place] [address] Performed By: #### 5 7021-8 ####[facility] LABCLIA [id number] [place] [address] [place] Neutrophils (Bld) [#/Vol] 7.07 10*3/uL Normal 1.45-7.50 [facility] Comment on above: Order Comment: Speci men Type: BLOOD SPECIMENOrdering Facility: [facility] Address: [address] [place] [address] Performed By: #### 5 7021-8 ####[facility] LABCLIA [id number] [place] [id number] [place] Neutrophils/100 WBC (Bld) 86.7 % Normal [facility] Comment on above: Order Comment: Speci men Type: BLOOD SPECIMENOrdering Facility: [facility] Address: [address] [place] [address] Performed By: #### 5 7021-8 ####[facility] LABCLIA [id number] [address] [place] [address] [place] Nucleated RBC (Bld) [#/Vol] 10*3/uL Normal <0.01 [facility] Comment on above: Order Comment: Speci men Type: BLOOD SPECIMENOrdering Facility: [facility] Address: [address] [place] [address] Performed By: #### 5 7021-8 ####[facility] LABCLIA [id number] [address], [place] [address] [place] Nucleated RBC/100 WBC (Bld) [Ratio] 0.0 /100 WBC Normal [facility] Comment on above: Order Comment: Speci men Type: BLOOD SPECIMENOrdering Facility: [facility] Address: [address] [place] [address] Performed By: #### 5 7021-8 ####[facility] LABIA [id number] [address], [place] [address] [place] Platelet mean volume (Bld) [Entitic vol] 9.0 fL Normal 9.0-12.7 [facility] Comment on above: Order Comment: Speci men Type: BLOOD SPECIMENOrdering Facility: [facility] Address: [address] [place] [address] Performed By: #### 5 7021-8 ####[facility] LABIA [id number] [place] [address] [place] Platelets (Bld) [#/Vol] 411 10*3/uL High 150-400 [facility] Comment on above: Order Comment: Speci men Type: BLOOD SPECIMENOrdering Facility: [facility] Address: [address] [place] [address] Performed By: #### 5 7021-8 ####[facility] LABCLIA [id number] [address] [place] [address] [place] RBC (Bld) [#/Vol] 2.13 10*6/uL Low 4.20-6.00 [facility] Comment on above: Order Comment: Speci men Type: BLOOD SPECIMENOrdering Facility: [facility] Address: [address] [place] [address] Performed By: #### 5 7021-8 ####[facility] LABCLIA [id number] [address] [address] [place] WBC (Bld) [#/Vol] 8.15 10*3/uL Normal 3.70-11.00 [facility] Comment on above: Order Comment: Speci men Type: BLOOD SPECIMENOrdering Facility: [facility] Address: [address] [place] [address] Performed By: #### 5 7021-8 ####[facility] LABCLIA [id number] [place] [address] [place] CBC panel Auto (Bld)on 10-20 Erythrocyte distribution width (RBC) [Ratio] 17.9 % High 11.5-15.0 [facility] Comment on above: Order Comment: Speci men Type: BLOOD SPECIMENOrdering Facility: [facility] Address: [address] [place] [address] Performed By: #### 5 8410-2 ####[facility] LABCLIA [id number] [place] [address] [place] Hematocrit (Bld) [Volume fraction] 21.3 % Low 39.0-51.0 [facility] Comment on above: Order Comment: Speci men Type: BLOOD SPECIMENOrdering Facility: [facility] Address: [address] [place] [address] Performed By: #### 5 8410-2 ####[facility] LABCLIA [id number] [place] [id number] [place] Hemoglobin (Bld) [Mass/Vol] 6.9 g/dL Low 13.0-17.0 [facility] Comment on above: Order Comment: Speci men Type: BLOOD SPECIMENOrdering Facility: [facility] Address: [address] [place] [address] Performed By: #### 5 8410-2 ####[facility] LABCLIA [id number] [place] [address] [place] MCH (RBC) [Entitic mass] 30.4 pg Normal 26.0-34.0 [facility] Comment on above: Order Comment: Speci men Type: BLOOD SPECIMENOrdering Facility: [facility] Address: [address] [place] [address] Performed By: #### 5 8410-2 ####[facility] LABCLIA [id number] [place] [address] [place] MCHC (RBC) [Mass/Vol] 32.4 g/dL Normal 30.5-36.0 [facility] Comment on above: Order Comment: Speci men Type: BLOOD SPECIMENOrdering Facility: [facility] Address: [address] [place] [address] Performed By: #### 5 8410-2 ####[facility] LABCLIA [id number] [place] [address] [place] MCV (RBC) [Entitic vol] 93.8 fL Normal 80.0-100.0 [facility] Comment on above: Order Comment: Speci men Type: BLOOD SPECIMENOrdering Facility: [facility] Address: [address] [place] [address] Performed By: #### 5 8410-2 ####[facility] LABCLIA [id number] [place] [address] [place] Nucleated RBC (Bld) [#/Vol] 10*3/uL Normal <0.01 [facility] Comment on above: Order Comment: Speci men Type: BLOOD SPECIMENOrdering Facility: [facility] Address: [address] [place] [address] Performed By: #### 5 8410-2 ####[facility] LABCLIA [id number] [place] [address] [place] Platelet mean volume (Bld) [Entitic vol] 9.0 fL Normal 9.0-12.7 [facility] Comment on above: Order Comment: Speci men Type: BLOOD SPECIMENOrdering Facility: [facility] Address: [address] [place] [address] Performed By: #### 5 8410-2 ####[facility] LABCLIA [id number] [place] [address] [place] Platelets (Bld) [#/Vol] 453 10*3/uL High 150-400 [facility] Comment on above: Order Comment: Speci men Type: BLOOD SPECIMENOrdering Facility: [facility] Address: [address] [place] [address] Performed By: #### 5 8410-2 ####[facility] LABIA [id number] [place] [address] [place] RBC (Bld) [#/Vol] 2.27 10*6/uL Low 4.20-6.00 [facility] Comment on above: Order Comment: Speci men Type: BLOOD SPECIMENOrdering Facility: [facility] Address: [address] [place] [address] Performed By: #### 5 8410-2 ####[facility] LABIA [id number] [place] [address] [place] WBC (Bld) [#/Vol] 8.20 10*3/uL Normal 3.70-11.00 [facility] Comment on above: Order Comment: Speci men Type: BLOOD SPECIMENOrdering Facility: [facility] Address: [address] [place] [address] Performed By: #### 5 8410-2 ####[facility] LABIA [id number] [place] [address] [place] CK SerPl-cCncon 07-06-2025 CK [Catalytic activity/Vol] U/L Low 51-298 [facility] Comment on above: Order Comment: Speci men Type: BLOOD SPECIMENOrdering Facility: [facility] Address: [address] [place] [address] Result Comment: Resu lt rechecked. Performed By: #### 1 9123-9, 2777-1, 64718-0, 2156-09 ####[facility] LABCLIA [id number] [place] [address] [place] CONSULTon 10-20-2024 CONSULT Normal [facility] CONSULT PROGon 10-20-2024 CONSULT PROG Normal [facility] Comprehensive metabolic 2000 panelon 10-20-2024 Albumin [Mass/Vol] 2.2 g/dL Low 3.9-4.9 [facility] Comment on above: Order Comment: Speci men Type: BLOOD SPECIMENOrdering Facility: [facility] Address: [address] [place] [address] Performed By: #### 1 9123-9, 2777-1, 02768-4, 2156-09 ####[facility] LABIA [id number] [place] [address] [place] ALP [Catalytic activity/Vol] 280 U/L High 38-113 [facility] Comment on above: Order Comment: Speci men Type: BLOOD SPECIMENOrdering Facility: [facility] Address: [address] [place] [address] Performed By: #### 1 9123-9, 2777-1, 15700-1, 2156-09 ####[facility] LABCLIA [id number] [place] [id number] [place] ALT [Catalytic activity/Vol] 9 U/L Low 10-54 [facility] Comment on above: Order Comment: Speci men Type: BLOOD SPECIMENOrdering Facility: [facility] Address: [address] [place] [address] Performed By: #### 1 9123-9, 2777-1, 77670-6, 2156-6 ####[facility] LABCLIA [id number] [address] [address] [place] Anion gap [Moles/Vol] 9 mmol/L Normal 8-15 [facility] Comment on above: Order Comment: Speci men Type: BLOOD SPECIMENOrdering Facility: [facility] Address: [address] [place], [place] [address] Performed By: #### 1 9123-9, 2777-1, 14140-1, 6 ####[facility] LABCLIA [id number] [place] [id number] [place] AST [Catalytic activity/Vol] 6 U/L Low 14-40 [facility] Comment on above: Order Comment: Speci men Type: BLOOD SPECIMENOrdering Facility: [facility] Address: [address] [place], [place] [address] Performed By: #### 1 9123-9, 2777-1, 42319-1, 2156-09 ####[facility] LABCLIA [id number] [address] [address] [place] Bilirubin [Mass/Vol] 0.2 mg/dL Normal 0.2-1.3 [facility] Comment on above: Order Comment: Speci men Type: BLOOD SPECIMENOrdering Facility: [facility] Address: [address] [place], [place] [address] Performed By: #### 1 9123-9, 2777-1, 55050-3, 2156-09 ####[facility] LABCLIA [id number] [address] [address] [place] Calcium [Mass/Vol] 8.2 mg/dL Low 8.5-10.2 [facility] Comment on above: Order Comment: Speci men Type: BLOOD SPECIMENOrdering Facility: [facility] Address: [address] [place], [place] [address] Performed By: #### 1 9123-9, 2777-1, 15613-8, 7-6 ####[facility] LABCLIA [id number] [address] [address] [place] Chloride [Moles/Vol] 100 mmol/L Normal 98-107 [facility] Comment on above: Order Comment: Speci men Type: BLOOD SPECIMENOrdering Facility: [facility] Address: [address] [place] [address] Performed By: #### 1 9123-9, 2777-1, 72379-5, 6 ####[facility] LABCLIA [id number] [place] [id number] [place] CO2 [Moles/Vol] 21 mmol/L Low 22-30 [facility] Comment on above: Order Comment: Speci men Type: BLOOD SPECIMENOrdering Facility: [facility] Address: [address] [place] [address] Performed By: #### 1 9123-9, 2777-1, 03871-9, 6 ####[facility] LABCLIA [id number] [place] [id number] [place] Creatinine [Mass/Vol] 0.99 mg/dL Normal 0.73-1.22 [facility] [place] Comment on above: Order Comment: Speci men Type: BLOOD SPECIMENOrdering Facility: [facility] Address: [address] [place], [place] [id number] Performed By: #### 1 9123-9, 2777-1, 68714-5, 6 ####[facility] LABCLIA [id number] [place] [id number] [place] Creatinine and Glomerular filtration rate.predicted panel (S/P/Bld) 81 mL/min/1.73m??? Normal >=60 [facility] Comment on above: Order Comment: Speci men Type: BLOOD SPECIMENOrdering Facility: [facility] Address: [address] [place] [address] Result Comment: Varsha mated Glomerular Filtration Rate (eGFR) is calculated using the 2020 CKD-EPI creatinine equation. This equation utilizes serum creatinine, sex, and age as parameters. The creatinine assay has traceable calibration to isotope dilution-mass spectrometry. Refer to KDIGO guidelines for clinical interpretation. In patients with unstable renal function, e.g. those with acute kidney injury, the eGFR may not accurately reflect actual GFR. Performed By: #### 1 9123-9, 2777-1, 10631-2, 2156-09 ####[facility] LABIA [id number] [address] [address] [place] Glucose [Mass/Vol] 136 mg/dL High 74-99 [facility] Comment on above: Order Comment: Mary flores Type: BLOOD SPECIMENOrdering Facility: [facility] Address: [address] [place] [address] Result Comment: The [place] [employer] (ADA) provides guidance for cutoff [...] Standards of Medical Care in Diabetes 2016, [place] [employer]. Diabetes Care. 2016.39(Suppl 1). Performed By: #### 1 9123-9, 2777-1, 12722-3, 2156-09 ####[facility] LABIA [id number] [address] [address] [place] Potassium [Moles/Vol] 3.8 mmol/L Normal 3.7-5.1 [facility] Comment on above: Order Comment: Specdolores flores Type: BLOOD SPECIMENOrdering Facility: [facility] Address: [address] [place] [id number] Performed By: #### 1 9123-9, 2777-1, 74397-0, 2157-6 ####[facility] LABIA [id number] [address] [address] [place] Protein [Mass/Vol] 4.4 g/dL Low 6.3-8.0 [facility] Comment on above: Order Comment: Speci men Type: BLOOD SPECIMENOrdering Facility: [facility] Address: [address] [place] [address] Performed By: #### 1 9123-9, 2777-1, 01986-1, 2156-6 ####[facility] [id number] [place] [address] [place] Sodium [Moles/Vol] 130 mmol/L Low 136-144 [facility] Comment on above: Order Comment: Speci men Type: BLOOD SPECIMENOrdering Facility: [facility] Address: [address] [place] [address] Performed By: #### 1 9123-9, 2777-1, 01722-3, 6 ####[facility] [id number] [place] [id number] [place] Urea nitrogen [Mass/Vol] 10 mg/dL Normal 9-24 [facility] Comment on above: Order Comment: Speci men Type: BLOOD SPECIMENOrdering Facility: [facility] Address: [address] [place] [address] Performed By: #### 1 9123-9, 2777-1, 76293-3, 6 ####[facility] [id number] [place] [id number] [place] Lipase SerPl-cCncon 10-21-19 25 Lipase [Catalytic activity/Vol] 8 U/L Low 16-61 [facility] Comment on above: Order Comment: Speci men Type: BLOOD SPECIMENOrdering Facility: [facility] Address: [address] [place], [place] [address] Performed By: #### 1 798-8, 3040-3 ####[facility] LABCLIA [id number] [address] [address] [place] Magnesium SerPl-mCncon 10-20 Magnesium [Mass/Vol] 1.6 mg/dL Low 1.7-2.3 [facility] Comment on above: Order Comment: Speci men Type: BLOOD SPECIMENOrdering Facility: [facility] Address: [address] [place] [address] Performed By: #### 1 9123-9, 2777-1, 07487-3, 2156-6 ####[facility] LABCLIA [id number] [place] [id number] [place] Phosphate SerPl-mCncon 10-20 Phosphate [Mass/Vol] 3.3 mg/dL Normal 2.7-4.8 [facility] Comment on above: Order Comment: Speci men Type: BLOOD SPECIMENOrdering Facility: [facility] Address: [address] [place] [address] Performed By: #### 1 9123-9, 2777-1, 43849-2, 2156-09 ####[facility] LABCLIA [id number] [place] [id number] [place] TYPE + SCREENon 10-20-2024 ABO O Normal [facility] Comment on above: Order Comment: Speci men Type: BLOOD SPECIMENOrdering Facility: [facility] Address: [address] [place] [phone] Performed By: #### T SCR ####[facility] BLOOD BANKCLIA [id number] [place] [id number] [place] Rh Nom (Bld) Positive Normal [facility] Comment on above: Order Comment: Speci men Type: BLOOD SPECIMENOrdering Facility: [facility] Address: [address] [place] [address] Performed By: #### T SCR ####[facility] BLOOD BANKCLIA [id number] [place] [address] [place] TYPE AND SCREEN EXPIRATION 10/23/2024 23:59 Normal [facility] Comment on above: Order Comment: Mary flores Type: BLOOD SPECIMENOrdering Facility: [facility] Address: [address] [place] [address] Performed By: #### T SCR ####[facility] BLOOD BANKCLIA [id number] [address] [place] Tacrolimus Bld-mCncon 2024 Tacrolimus (Bld) [Mass/Vol] 3.7 ng/mL Low 5.0-20.0 [facility] Comment on above: Order Comment: Mary flores Type: BLOOD SPECIMENOrdering Facility: [facility] Address: [address] [place] [address] Result Comment: Keiko vidualized target levels for a given patient will [...] situation. Test performed by chemiluminescent immunoassay using Lak[employer] Alinity i. Performed By: #### 1 1253-2 ####[facility] LABCLIA [id number] [place] [address] [place] Tacrolimus (Bld) [Mass/Vol] 5.2 ng/mL Normal 5.0-20.0 [facility] Comment on above: Order Comment: Mary flores Type: BLOOD SPECIMENOrdering Facility: [facility] Address: [address] [place] [address] Result Comment: Keiko vidualized target levels for a given patient will [...] situation. Test performed by chemiluminescent immunoassay using [employer] Alinity i. Performed By: #### 1 1253-2 ####[facility] LABCLIA [id number] [place] [address] [place] Tacrolimus (Bld) [Mass/Vol] 5.5 ng/mL Normal 5.0-20.0 [facility] Comment on above: Order Comment: Mary flores Type: BLOOD SPECIMENOrdering Facility: [facility] Address: [address] [place] [address] Result Comment: Keiko vidualized target levels for a given patient will [...] situation. Test performed by chemiluminescent immunoassay using [employer] Alinity i. Performed By: #### 1 1253-2 ####[facility] LABCLIA [id number] [place] [address] [place] CBC W Auto Differential pane l (Bld)on 10-19-2024 Basophils (Bld) [#/Vol] 0.04 10*3/uL Normal <0.11 [facility] Comment on above: Order Comment: Mary flores Type: BLOOD SPECIMENOrdering Facility: [facility] Address: [address] [place] [address] Performed By: #### 5 7021-8 ####[facility] LABCLIA [id number] [place] [address] [place] Basophils/100 WBC (Bld) 0.4 % Normal [facility] Comment on above: Order Comment: Mary flores Type: BLOOD SPECIMENOrdering Facility: [facility] Address: [address] [place] [address] Performed By: #### 5 7021-8 ####[facility] LABCLIA [id number] [place] [address] [place] Differential cell count method Nom (Bld) Auto Normal [facility] Comment on above: Order Comment: Speci men Type: BLOOD SPECIMENOrdering Facility: [facility] Address: [address] [place] [address] Performed By: #### 5 7021-8 ####[facility] LABCLIA [id number] [place] [address] [place] Eosinophils (Bld) [#/Vol] 0.10 10*3/uL Normal <0.46 [facility] Comment on above: Order Comment: Speci men Type: BLOOD SPECIMENOrdering Facility: [facility] Address: [address] [place] [address] Performed By: #### 5 7021-8 ####[facility] LABIA [id number] [place] [address] [place] Eosinophils/100 WBC (Bld) 1.0 % Normal [facility] Comment on above: Order Comment: Speci men Type: BLOOD SPECIMENOrdering Facility: [facility] Address: [address] [place] [address] Performed By: #### 5 7021-8 ####[facility] LABIA [id number] [place] [address] [place] Erythrocyte distribution width (RBC) [Ratio] 17.5 % High 11.5-15.0 [facility] Comment on above: Order Comment: Speci men Type: BLOOD SPECIMENOrdering Facility: [facility] Address: [address] [place] [address] Performed By: #### 5 7021-8 ####[facility] LABCLIA [id number] [place] [address] [place] Hematocrit (Bld) [Volume fraction] 21.5 % Low 39.0-51.0 [facility] Comment on above: Order Comment: Speci men Type: BLOOD SPECIMENOrdering Facility: [facility] Address: [address] [place] [address] Performed By: #### 5 7021-8 ####[facility] LABCLIA [id number] [place] [address] [place] Hemoglobin (Bld) [Mass/Vol] 6.8 g/dL Low 13.0-17.0 [facility] Comment on above: Order Comment: Speci men Type: BLOOD SPECIMENOrdering Facility: [facility] Address: [address] [place] [address] Performed By: #### 5 7021-8 ####[facility] LABCLIA [id number] [place] [address] [place] Immature granulocytes (Bld) [#/Vol] 0.13 10*3/uL High <0.10 [facility] Comment on above: Order Comment: Speci men Type: BLOOD SPECIMENOrdering Facility: [facility] Address: [address] [place] [address] Performed By: #### 5 7021-8 ####[facility] LABCLIA [id number] [place] [address] [place] Immature granulocytes/100 WBC (Bld) 1.3 % Normal [facility] Comment on above: Order Comment: Speci men Type: BLOOD SPECIMENOrdering Facility: [facility] Address: [address] [place] [address] Performed By: #### 5 7021-8 ####[facility] LABIA [id number] [place] [address] [place] Lymphocytes (Bld) [#/Vol] 0.35 10*3/uL Low 1.00-4.00 [facility] Comment on above: Order Comment: Speci men Type: BLOOD SPECIMENOrdering Facility: [facility] Address: [address] [place] [address] Performed By: #### 5 7021-8 ####[facility] LABIA [id number] [place] [address] [place] Lymphocytes/100 WBC (Bld) 3.6 % Normal [facility] Comment on above: Order Comment: Speci men Type: BLOOD SPECIMENOrdering Facility: [facility] Address: [address] [place] [address] Performed By: #### 5 7021-8 ####[facility] LABIA [id number] [place] [address] [place] MCH (RBC) [Entitic mass] 30.0 pg Normal 26.0-34.0 [facility] Comment on above: Order Comment: Speci men Type: BLOOD SPECIMENOrdering Facility: [facility] Address: [address] [place] [address] Performed By: #### 5 7021-8 ####[facility] LABIA [id number] [place] [address] [place] MCHC (RBC) [Mass/Vol] 31.6 g/dL Normal 30.5-36.0 [facility] Comment on above: Order Comment: Speci men Type: BLOOD SPECIMENOrdering Facility: [facility] Address: [address] [place] [address] Performed By: #### 5 7021-8 ####[facility] LABIA [id number] [place] [id number] [place] MCV (RBC) [Entitic vol] 94.7 fL Normal 80.0-100.0 [facility] Comment on above: Order Comment: Speci men Type: BLOOD SPECIMENOrdering Facility: [facility] Address: [address] [place] [address] Performed By: #### 5 7021-8 ####[facility] LABIA [id number] [place] [address] [place] Monocytes (Bld) [#/Vol] 0.36 10*3/uL Normal <0.87 [facility] Comment on above: Order Comment: Speci men Type: BLOOD SPECIMENOrdering Facility: [facility] Address: [address] [place] [address] Performed By: #### 5 7021-8 ####[facility] LABCLIA [id number] [place] [address] [place] Monocytes/100 WBC (Bld) 3.7 % Normal [facility] Comment on above: Order Comment: Speci men Type: BLOOD SPECIMENOrdering Facility: [facility] Address: [address] [place] [address] Performed By: #### 5 7021-8 ####[facility] LABCLIA [id number] [place] [address] [place] Neutrophils (Bld) [#/Vol] 8.67 10*3/uL High 1.45-7.50 [facility] Comment on above: Order Comment: Speci men Type: BLOOD SPECIMENOrdering Facility: [facility] Address: [address] [place] [address] Performed By: #### 5 7021-8 ####[facility] LABCLIA [id number] [place] [address] [place] Neutrophils/100 WBC (Bld) 90.0 % Normal [facility] Comment on above: Order Comment: Speci men Type: BLOOD SPECIMENOrdering Facility: [facility] Address: [address] [place] [address] Performed By: #### 5 7021-8 ####[facility] LABCLIA [id number] [place] [address] [place] Nucleated RBC (Bld) [#/Vol] 10*3/uL Normal <0.01 [facility] Comment on above: Order Comment: Speci men Type: BLOOD SPECIMENOrdering Facility: [facility] Address: [address] [place] [address] Performed By: #### 5 7021-8 ####[facility] LABCLIA [id number] [place] [address] [place] Nucleated RBC/100 WBC (Bld) [Ratio] 0.0 /100 WBC Normal [facility] Comment on above: Order Comment: Speci men Type: BLOOD SPECIMENOrdering Facility: [facility] Address: [address] [place] [address] Performed By: #### 5 7021-8 ####[facility] LABIA [id number] [place] [address] [place] Platelet mean volume (Bld) [Entitic vol] 9.0 fL Normal 9.0-12.7 [facility] Comment on above: Order Comment: Speci men Type: BLOOD SPECIMENOrdering Facility: [facility] Address: [address] [place] [address] Performed By: #### 5 7021-8 ####[facility] LABIA [id number] [place] [address] [place] Platelets (Bld) [#/Vol] 412 10*3/uL High 150-400 [facility] Comment on above: Order Comment: Speci men Type: BLOOD SPECIMENOrdering Facility: [facility] Address: [address] [place] [address] Performed By: #### 5 7021-8 ####[facility] LABCLIA [id number] [place] [address] [place] RBC (Bld) [#/Vol] 2.27 10*6/uL Low 4.20-6.00 [facility] Comment on above: Order Comment: Speci men Type: BLOOD SPECIMENOrdering Facility: [facility] Address: [address] [place] [address] Performed By: #### 5 7021-8 ####[facility] LABCLIA [id number] [place] [address] [place] WBC (Bld) [#/Vol] 9.65 10*3/uL Normal 3.70-11.00 [facility] Comment on above: Order Comment: Speci men Type: BLOOD SPECIMENOrdering Facility: [facility] Address: [address] [place] [address] Performed By: #### 5 7021-8 ####[facility] LABIA [id number] [place] [address] [place] CBC panel Auto (Bld)on 10-19 Erythrocyte distribution width (RBC) [Ratio] 17.5 % High 11.5-15.0 [facility] Comment on above: Order Comment: Speci men Type: BLOOD SPECIMENOrdering Facility: [facility] Address: [address] [place] [address] Performed By: #### 5 8410-2 ####[facility] [id number] [place] [address] [place] Hematocrit (Bld) [Volume fraction] 22.1 % Low 39.0-51.0 [facility] Comment on above: Order Comment: Speci men Type: BLOOD SPECIMENOrdering Facility: [facility] Address: [address] [place] [address] Performed By: #### 5 8410-2 ####[facility] LABIA [id number] [place] [address] [place] Hemoglobin (Bld) [Mass/Vol] 7.2 g/dL Low 13.0-17.0 [facility] Comment on above: Order Comment: Speci men Type: BLOOD SPECIMENOrdering Facility: [facility] Address: [address] [place] [address] Performed By: #### 5 8410-2 ####[facility] LABIA [id number] [place] [address] [place] MCH (RBC) [Entitic mass] 30.1 pg Normal 26.0-34.0 [facility] Comment on above: Order Comment: Speci men Type: BLOOD SPECIMENOrdering Facility: [facility] Address: [address] [place] [address] Performed By: #### 5 8410-2 ####[facility] LABCLIA [id number] [place] [address] [place] MCHC (RBC) [Mass/Vol] 32.6 g/dL Normal 30.5-36.0 [facility] Comment on above: Order Comment: Speci men Type: BLOOD SPECIMENOrdering Facility: [facility] Address: [address] [place] [address] Performed By: #### 5 8410-2 ####[facility] LABCLIA [id number] [place] [address] [place] MCV (RBC) [Entitic vol] 92.5 fL Normal 80.0-100.0 [facility] Comment on above: Order Comment: Speci men Type: BLOOD SPECIMENOrdering Facility: [facility] Address: [address] [place] [address] Performed By: #### 5 8410-2 ####[facility] LABIA [id number] [place] [address] [place] Nucleated RBC (Bld) [#/Vol] 10*3/uL Normal <0.01 [facility] Comment on above: Order Comment: Speci men Type: BLOOD SPECIMENOrdering Facility: [facility] Address: [address] [place] [address] Performed By: #### 5 8410-2 ####[facility] LABCLIA [id number] [place] [address] [place] Platelet mean volume (Bld) [Entitic vol] 9.0 fL Normal 9.0-12.7 [facility] Comment on above: Order Comment: Speci men Type: BLOOD SPECIMENOrdering Facility: [facility] Address: [address] [place] [address] Performed By: #### 5 8410-2 ####[facility] LABCLIA [id number] [place] [address] [place] Platelets (Bld) [#/Vol] 443 10*3/uL High 150-400 [facility] Comment on above: Order Comment: Speci men Type: BLOOD SPECIMENOrdering Facility: [facility] Address: [address] [place] [address] Performed By: #### 5 8410-2 ####[facility] LABIA [id number] [address] [place] RBC (Bld) [#/Vol] 2.39 10*6/uL Low 4.20-6.00 [facility] Comment on above: Order Comment: Speci men Type: BLOOD SPECIMENOrdering Facility: [facility] Address: [address] [place] [address] Performed By: #### 5 8410-2 ####[facility] LABIA [id number] [address] [place] WBC (Bld) [#/Vol] 9.84 10*3/uL Normal 3.70-11.00 [facility] Comment on above: Order Comment: Speci men Type: BLOOD SPECIMENOrdering Facility: [facility] Address: [address] [place] [address] Performed By: #### 5 8410-2 ####[facility] LABIA [id number] [place] [id number] [place] [facility] [place] Comprehensive metabolic 2000 panelon 10-19-2024 Albumin [Mass/Vol] 2.2 g/dL Low 3.9-4.9 [facility] Comment on above: Order Comment: Speci men Type: BLOOD SPECIMENOrdering Facility: [facility] Address: [address] [place] [address] Performed By: #### 2 4323-8, 29285-5, 2776-04 ####[facility] LABCLIA [id number] [place] [address] [place] ALP [Catalytic activity/Vol] 331 U/L High 38-113 [facility] Comment on above: Order Comment: Speci men Type: BLOOD SPECIMENOrdering Facility: [facility] Address: [address] [place] [address] Performed By: #### 2 4323-8, , 2776-04 ####[facility] LABCLIA [id number] [place] [address] [place] ALT [Catalytic activity/Vol] 14 U/L Normal 10-54 [facility] Comment on above: Order Comment: Speci men Type: BLOOD SPECIMENOrdering Facility: [facility] Address: [address] [place] [address] Performed By: #### 2 4323-8, , 2776-04 ####[facility] LABCLIA [id number] [place] [address] [place] Anion gap [Moles/Vol] 10 mmol/L Normal 8-15 [facility] Comment on above: Order Comment: Speci men Type: BLOOD SPECIMENOrdering Facility: [facility] Address: [address] [place] [address] Performed By: #### 2 4323-8, , 2776-04 ####[facility] LABCLIA [id number] [place] [id number] [place] AST [Catalytic activity/Vol] 10 U/L Low 14-40 [facility] Comment on above: Order Comment: Speci men Type: BLOOD SPECIMENOrdering Facility: [facility] Address: [address] [place] [address] Performed By: #### 2 4323-8, 93552-8, 2776- ####[facility] LABCLIA [id number] [address] [address] [place] Bilirubin [Mass/Vol] 0.2 mg/dL Normal 0.2-1.3 [facility] Comment on above: Order Comment: Speci men Type: BLOOD SPECIMENOrdering Facility: [facility] Address: [address] [place] [address] Performed By: #### 2 4323-8, , 2776-04 ####[facility] LABCLIA [id number] [address] [address] [place] Calcium [Mass/Vol] 8.1 mg/dL Low 8.5-10.2 [facility] Comment on above: Order Comment: Speci men Type: BLOOD SPECIMENOrdering Facility: [facility] Address: [address] [place] [address] Performed By: #### 2 4323-8, , 2776-04 ####[facility] LABCLIA [id number] [address] [address] [place] Chloride [Moles/Vol] 100 mmol/L Normal 98-107 [facility] Comment on above: Order Comment: Speci men Type: BLOOD SPECIMENOrdering Facility: [facility] Address: [address] [place] [address] Performed By: #### 2 4323-8, , 2776-04 ####[facility] LABCLIA [id number] [address] [address] [place] CO2 [Moles/Vol] 21 mmol/L Low 22-30 [facility] Comment on above: Order Comment: Speci men Type: BLOOD SPECIMENOrdering Facility: [facility] Address: [address] [place], [place] [address] Performed By: #### 2 4323-8, , 2776-04 ####[facility] LABCLIA [id number] [address] [address] [place] Creatinine [Mass/Vol] 1.06 mg/dL Normal 0.73-1.22 [facility] [place] Comment on above: Order Comment: Mary flores Type: BLOOD SPECIMENOrdering Facility: [facility] Address: [address] [place] [address] Performed By: #### 2 4323-8, 72477-3, 2776-04 ####[facility] LAB[facility] [id number] [address] Creatinine and Glomerular filtration rate.predicted panel (S/P/Bld) 75 mL/min/1.73m??? Normal >=60 [facility] Comment on above: Order Comment: Mary flores Type: BLOOD SPECIMENOrdering Facility: [facility] Address: [address] [place] [address] Result Comment: Varsha mated Glomerular Filtration Rate (eGFR) is calculated using the 2020 CKD-EPI creatinine equation. This equation utilizes serum creatinine, sex, and age as parameters. The creatinine assay has traceable calibration to isotope dilution-mass spectrometry. Refer to KDIGO guidelines for clinical interpretation. In patients with unstable renal function, e.g. those with acute kidney injury, the eGFR may not accurately reflect actual GFR. Performed By: #### 2 4323-8, , 2776-04 ####[facility] LABIA [id number] [place] [id number] [place] Glucose [Mass/Vol] 148 mg/dL High 74-99 [facility] Comment on above: Order Comment: Mary flores Type: BLOOD SPECIMENOrdering Facility: [facility] Address: [address] [place] [address] Result Comment: The [place] Diabetes [employer] (ADA) provides guidance for cutoff [...] Standards of Medical Care in Diabetes 2016, [place] [employer]. Diabetes Care. 2016.39(Suppl 1). Performed By: #### 2 4323-8, , 2776-04 ####[facility] LABCLIA [id number] [address] [address] [place] Potassium [Moles/Vol] 4.1 mmol/L Normal 3.7-5.1 [facility] [place] Comment on above: Order Comment: Speci men Type: BLOOD SPECIMENOrdering Facility: [facility] Address: [address] [place], [place] [address] Performed By: #### 2 432-8, , 2776-04 ####[facility] LABCLIA [id number] [address] [address] [place] Protein [Mass/Vol] 4.4 g/dL Low 6.3-8.0 [facility] Comment on above: Order Comment: Speci men Type: BLOOD SPECIMENOrdering Facility: [facility] Address: [address] [place] [address] Performed By: #### 2 432-8, , 2776-04 ####[facility] LABCLIA [id number] [address] [address] [place] Sodium [Moles/Vol] 131 mmol/L Low 136-144 [facility] Comment on above: Order Comment: Speci men Type: BLOOD SPECIMENOrdering Facility: [facility] Address: [address] [place] [address] Performed By: #### 2 432-8, , 2776-04 ####[facility] LABCLIA [id number] [address] [address] [place] Urea nitrogen [Mass/Vol] 10 mg/dL Normal 9-24 [facility] Comment on above: Order Comment: Speci men Type: BLOOD SPECIMENOrdering Facility: [facility] Address: [address] [place] [address] Performed By: #### 2 4323-8, 67080-8, 2776-04 ####[facility] LABCLIA [id number] [place] [id number] [place] Magnesium SerPl-ncon 10-19 Magnesium [Mass/Vol] 1.7 mg/dL Normal 1.7-2.3 [facility] Comment on above: Order Comment: Speci men Type: BLOOD SPECIMENOrdering Facility: [facility] Address: [address] [place] [address] Performed By: #### 2 4323-8, , 2776-04 ####[facility] LABIA [id number] [place] [address] [place] Phosphate SerPl-mCncon 10-19 Phosphate [Mass/Vol] 3.4 mg/dL Normal 2.7-4.8 [facility] Comment on above: Order Comment: Dimitryi mark Type: BLOOD SPECIMENOrdering Facility: [facility] Address: [address] [place] [address] Performed By: #### 2 4323-8, , 2776-04 ####[facility] LABIA [id number] [place] [address] [place] Tacrolimus Bld-mCncon 2024 Tacrolimus (Bld) [Mass/Vol] 6.3 ng/mL Normal 5.0-20.0 [facility] Comment on above: Order Comment: Dimitryi men Type: BLOOD SPECIMENOrdering Facility: [facility] Address: [address] [place] [address] Result Comment: Keiko vidualized target levels for a given patient will [...] situation. Test performed by chemiluminescent immunoassay using Cocrystal Discovery Alinity i. Performed By: #### 1 1253-2 ####[facility] LABCLIA [id number] [place] [address] [place] US ABD LIVER VASCULAR TRANSP LANTon 10-19-2024 US ABD LIVER VASCULAR TRANSPLANT Normal [facility] US DOPPLER COMPLETEon 2024 US DOPPLER COMPLETE Normal [facility] XR ABDOMEN 1V SUPINEon 10-19 XR ABDOMEN 1V SUPINE Normal [facility] CBC W Auto Differential pane l (Bld)on 10-18-2024 Basophils (Bld) [#/Vol] 0.08 10*3/uL Normal <0.11 [facility] Comment on above: Order Comment: Speci men Type: BLOOD SPECIMENOrdering Facility: [facility] Address: [address] [place] [address] Performed By: #### 5 7021-8 ####[facility] LABCLIA [id number] [place] [address] [place] Basophils/100 WBC (Bld) 0.6 % Normal [facility] Comment on above: Order Comment: Speci men Type: BLOOD SPECIMENOrdering Facility: [facility] Address: [address] [place] [address] Performed By: #### 5 7021-8 ####[facility] LABCLIA [id number] [place] [id number] [place] Differential cell count method Nom (Bld) Auto Normal [facility] Comment on above: Order Comment: Speci men Type: BLOOD SPECIMENOrdering Facility: [facility] Address: [address] [place] [address] Performed By: #### 5 7021-8 ####[facility] LABCLIA [id number] [place] [address] [place] Eosinophils (Bld) [#/Vol] 0.17 10*3/uL Normal <0.46 [facility] Comment on above: Order Comment: Speci men Type: BLOOD SPECIMENOrdering Facility: [facility] Address: [address] [place] [address] Performed By: #### 5 7021-8 ####[facility] LABCLIA [id number] [address], [place] [address] [place] Eosinophils/100 WBC (Bld) 1.3 % Normal [facility] Comment on above: Order Comment: Speci men Type: BLOOD SPECIMENOrdering Facility: [facility] Address: [address] [place] [address] Performed By: #### 5 7021-8 ####[facility] LABCLIA [id number] [place] [address] [place] Erythrocyte distribution width (RBC) [Ratio] 17.2 % High 11.5-15.0 [facility] Comment on above: Order Comment: Speci men Type: BLOOD SPECIMENOrdering Facility: [facility] Address: [address] [place] [address] Performed By: #### 5 7021-8 ####[facility] LABCLIA [id number] [place] [address] [place] Hematocrit (Bld) [Volume fraction] 27.1 % Low 39.0-51.0 [facility] Comment on above: Order Comment: Speci men Type: BLOOD SPECIMENOrdering Facility: [facility] Address: [address] [place] [address] Performed By: #### 5 7021-8 ####[facility] LABCLIA [id number] [place] [id number] [place] Hemoglobin (Bld) [Mass/Vol] 8.5 g/dL Low 13.0-17.0 [facility] Comment on above: Order Comment: Speci men Type: BLOOD SPECIMENOrdering Facility: [facility] Address: [address] [place] [address] Performed By: #### 5 7021-8 ####[facility] LABCLIA [id number] [place] [address] [place] Immature granulocytes (Bld) [#/Vol] 0.11 10*3/uL High <0.10 [facility] Comment on above: Order Comment: Speci men Type: BLOOD SPECIMENOrdering Facility: [facility] Address: [address] [place] [address] Performed By: #### 5 7021-8 ####[facility] LABCLIA [id number] [place] [address] [place] Immature granulocytes/100 WBC (Bld) 0.9 % Normal [facility] Comment on above: Order Comment: Speci men Type: BLOOD SPECIMENOrdering Facility: [facility] Address: [address] [place] [address] Performed By: #### 5 7021-8 ####[facility] LABCLIA [id number] [place] [address] [place] Lymphocytes (Bld) [#/Vol] 0.29 10*3/uL Low 1.00-4.00 [facility] Comment on above: Order Comment: Speci men Type: BLOOD SPECIMENOrdering Facility: [facility] Address: [address] [place] [address] Performed By: #### 5 7021-8 ####[facility] LABCLIA [id number] [place] [address] [place] Lymphocytes/100 WBC (Bld) 2.3 % Normal [facility] Comment on above: Order Comment: Speci men Type: BLOOD SPECIMENOrdering Facility: [facility] Address: [address] [place] [address] Performed By: #### 5 7021-8 ####[facility] LABCLIA [id number] [place] [address] [place] MCH (RBC) [Entitic mass] 30.1 pg Normal 26.0-34.0 [facility] Comment on above: Order Comment: Speci men Type: BLOOD SPECIMENOrdering Facility: [facility] Address: [address] [place] [address] Performed By: #### 5 7021-8 ####[facility] LABIA [id number] [place] [address] [place] MCHC (RBC) [Mass/Vol] 31.4 g/dL Normal 30.5-36.0 [facility] Comment on above: Order Comment: Speci men Type: BLOOD SPECIMENOrdering Facility: [facility] Address: [address] [place] [address] Performed By: #### 5 7021-8 ####[facility] LABIA [id number] [place] [address] [place] MCV (RBC) [Entitic vol] 96.1 fL Normal 80.0-100.0 [facility] Comment on above: Order Comment: Speci men Type: BLOOD SPECIMENOrdering Facility: [facility] Address: [address] [place] [address] Performed By: #### 5 7021-8 ####[facility] LABIA [id number] [place] [address] [place] Monocytes (Bld) [#/Vol] 0.32 10*3/uL Normal <0.87 [facility] Comment on above: Order Comment: Speci men Type: BLOOD SPECIMENOrdering Facility: [facility] Address: [address] [place] [address] Performed By: #### 5 7021-8 ####[facility] LABCLIA [id number] [place] [address] [place] Monocytes/100 WBC (Bld) 2.5 % Normal [facility] Comment on above: Order Comment: Speci men Type: BLOOD SPECIMENOrdering Facility: [facility] Address: [address] [place] [address] Performed By: #### 5 7021-8 ####[facility] LABCLIA [id number] [address] [address] [place] Neutrophils (Bld) [#/Vol] 11.75 10*3/uL High 1.45-7.50 [facility] Comment on above: Order Comment: Speci men Type: BLOOD SPECIMENOrdering Facility: [facility] Address: [address] [place] [address] Performed By: #### 5 7021-8 ####[facility] LABCLIA [id number] [place] [address] [place] Neutrophils/100 WBC (Bld) 92.4 % Normal [facility] Comment on above: Order Comment: Speci men Type: BLOOD SPECIMENOrdering Facility: [facility] Address: [address] [place] [address] Performed By: #### 5 7021-8 ####[facility] LABCLIA [id number] [place] [address] [place] Nucleated RBC (Bld) [#/Vol] 10*3/uL Normal <0.01 [facility] Comment on above: Order Comment: Speci men Type: BLOOD SPECIMENOrdering Facility: [facility] Address: [address] [place] [address] Performed By: #### 5 7021-8 ####[facility] LABCLIA [id number] [place] [id number] [place] Nucleated RBC/100 WBC (Bld) [Ratio] 0.0 /100 WBC Normal [facility] Comment on above: Order Comment: Speci men Type: BLOOD SPECIMENOrdering Facility: [facility] Address: [address] [place], [place] [address] Performed By: #### 5 7021-8 ####[facility] LABCLIA [id number] [address] [address] [place] Platelet mean volume (Bld) [Entitic vol] 9.0 fL Normal 9.0-12.7 [facility] Comment on above: Order Comment: Speci men Type: BLOOD SPECIMENOrdering Facility: [facility] Address: [address] [place] [address] Performed By: #### 5 7021-8 ####[facility] LABCLIA [id number] [place] [address] [place] Platelets (Bld) [#/Vol] 542 10*3/uL High 150-400 [facility] Comment on above: Order Comment: Speci men Type: BLOOD SPECIMENOrdering Facility: [facility] Address: [address] [place] [address] Performed By: #### 5 7021-8 ####[facility] LABIA [id number] [place] [address] [place] RBC (Bld) [#/Vol] 2.82 10*6/uL Low 4.20-6.00 [facility] Comment on above: Order Comment: Speci men Type: BLOOD SPECIMENOrdering Facility: [facility] Address: [address] [place] [address] Performed By: #### 5 7021-8 ####[facility] LABIA [id number] [place] [address] [place] WBC (Bld) [#/Vol] 12.72 10*3/uL High 3.70-11.00 [facility] Comment on above: Order Comment: Speci men Type: BLOOD SPECIMENOrdering Facility: [facility] Address: [address] [place] [address] Performed By: #### 5 7021-8 ####[facility] LABIA [id number] [place] [id number] [place] CT ABDOMEN WO IVCONon 2024 CT ABDOMEN WO IVCON Normal [facility] Comprehensive metabolic 2000 panelon 10-18-2024 Albumin [Mass/Vol] 2.4 g/dL Low 3.9-4.9 [facility] Comment on above: Order Comment: Speci men Type: BLOOD SPECIMENOrdering Facility: [facility] Address: [address] [place] [address] Performed By: #### 2 4323-8, , 2776-04 ####[facility] LABCLIA [id number] [address] [address] [place] ALP [Catalytic activity/Vol] 450 U/L High 38-113 [facility] Comment on above: Order Comment: Speci men Type: BLOOD SPECIMENOrdering Facility: [facility] Address: [address] [place] [address] Performed By: #### 2 4323-8, , 2776-04 ####[facility] LABCLIA [id number] [address] [address] [place] ALT [Catalytic activity/Vol] 18 U/L Normal 10-54 [facility] Comment on above: Order Comment: Speci men Type: BLOOD SPECIMENOrdering Facility: [facility] Address: [address] [place] [address] Performed By: #### 2 4323-8, , 2776-04 ####[facility] LABCLIA [id number] [address] [address] [place] Anion gap [Moles/Vol] 12 mmol/L Normal 8-15 [facility] Comment on above: Order Comment: Speci men Type: BLOOD SPECIMENOrdering Facility: [facility] Address: [address] [place] [address] Performed By: #### 2 4323-8, 62535-5, 2776- ####[facility] LABCLIA [id number] [address] [address] [place] AST [Catalytic activity/Vol] 12 U/L Low 14-40 [facility] Comment on above: Order Comment: Speci men Type: BLOOD SPECIMENOrdering Facility: [facility] Address: [address] [place] [address] Performed By: #### 2 4323-8, , 2776-04 ####[facility] LABCLIA [id number] [place] [address] [place] Bilirubin [Mass/Vol] 0.3 mg/dL Normal 0.2-1.3 [facility] Comment on above: Order Comment: Speci men Type: BLOOD SPECIMENOrdering Facility: [facility] Address: [address] [place] [address] Performed By: #### 2 4323-8, , 2776-04 ####[facility] LABCLIA [id number] [place] [address] [place] Calcium [Mass/Vol] 8.3 mg/dL Low 8.5-10.2 [facility] Comment on above: Order Comment: Speci men Type: BLOOD SPECIMENOrdering Facility: [facility] Address: [address] [place] [address] Performed By: #### 2 4323-8, , 2776-04 ####[facility] LABCLIA [id number] [place] [address] [place] Chloride [Moles/Vol] 102 mmol/L Normal 98-107 [facility] Comment on above: Order Comment: Speci men Type: BLOOD SPECIMENOrdering Facility: [facility] Address: [address] [place] [address] Performed By: #### 2 4323-8, , 2776-04 ####[facility] LABCLIA [id number] [place] [id number] [place] CO2 [Moles/Vol] 21 mmol/L Low 22-30 [facility] Comment on above: Order Comment: Speci men Type: BLOOD SPECIMENOrdering Facility: [facility] Address: [address] [place] [address] Performed By: #### 2 4323-8, , 2776-04 ####[facility] LABCLIA [id number] [place] [id number] [place] Creatinine [Mass/Vol] 1.04 mg/dL Normal 0.73-1.22 [facility] Comment on above: Order Comment: Speci men Type: BLOOD SPECIMENOrdering Facility: [facility] Address: [address] [place] [address] Performed By: #### 2 4323-8, , 2776-04 ####[facility] LABCLIA [id number] [place] [address] [place] Creatinine and Glomerular filtration rate.predicted panel (S/P/Bld) 77 mL/min/1.73m??? Normal >=60 [facility] Comment on above: Order Comment: Speci men Type: BLOOD SPECIMENOrdering Facility: [facility] Address: [address] [place] [address] Result Comment: Varsha mated Glomerular Filtration Rate (eGFR) is calculated using the 2020 CKD-EPI creatinine equation. This equation utilizes serum creatinine, sex, and age as parameters. The creatinine assay has traceable calibration to isotope dilution-mass spectrometry. Refer to KDIGO guidelines for clinical interpretation. In patients with unstable renal function, e.g. those with acute kidney injury, the eGFR may not accurately reflect actual GFR. Performed By: #### 2 4323-8, , 2776-04 ####[facility] LABCLIA [id number] [place] [id number] [place] Glucose [Mass/Vol] 146 mg/dL High 74-99 [facility] Comment on above: Order Comment: Speci men Type: BLOOD SPECIMENOrdering Facility: [facility] Address: [address] [place] [address] Result Comment: The [place] Diabetes [employer] (ADA) provides guidance for cutoff [...] Standards of Medical Care in Diabetes 2016, [place] [employer]. Diabetes Care. 2016.39(Suppl 1). Performed By: #### 2 4323-8, , 2776-04 ####[facility] LABCLIA [id number] [place] [address] [place] Potassium [Moles/Vol] 4.1 mmol/L Normal 3.7-5.1 [facility] Comment on above: Order Comment: Speci men Type: BLOOD SPECIMENOrdering Facility: [facility] Address: [address] [place] [address] Performed By: #### 2 4323-8, , 2776-04 ####[facility] LABCLIA [id number] [place] [address] [place] Protein [Mass/Vol] 4.9 g/dL Low 6.3-8.0 [facility] Comment on above: Order Comment: Speci men Type: BLOOD SPECIMENOrdering Facility: [facility] Address: [address] [place], [place] [address] Performed By: #### 2 4323-8, , 2776-04 ####[facility] LABCLIA [id number] [facility] [place] [id number] [place] Sodium [Moles/Vol] 135 mmol/L Low 136-144 [facility] Comment on above: Order Comment: Speci men Type: BLOOD SPECIMENOrdering Facility: [facility] Address: [address] [place], [place] [address] Performed By: #### 2 4323-8, , 2776-04 ####[facility] LABCLIA [id number] [place] [id number] [place] Urea nitrogen [Mass/Vol] 8 mg/dL Low 9-24 [facility] Comment on above: Order Comment: Speci men Type: BLOOD SPECIMENOrdering Facility: [facility] Address: [address] [place] [address] Performed By: #### 2 4323-8, , 2776-04 ####[facility] LABCLIA [id number] [place] [id number] [place] Magnesium SerPl-mCncon 10-18 Magnesium [Mass/Vol] 2.2 mg/dL Normal 1.7-2.3 [facility] Comment on above: Order Comment: Speci men Type: BLOOD SPECIMENOrdering Facility: [facility] Address: [address] [place] [address] Performed By: #### 2 4323-8, , 2776-04 ####[facility] LABCLIA [id number] [place] [id number] [place] Phosphate SerPl-mCncon 10-18 Phosphate [Mass/Vol] 3.4 mg/dL Normal 2.7-4.8 [facility] Comment on above: Order Comment: Speci men Type: BLOOD SPECIMENOrdering Facility: [facility] Address: [address] [place], [place] [address] Performed By: #### 2 4323-8, , 2776-04 ####[facility] LABCLIA [id number] [place] [id number] [place] Tacrolimus Bld-mCncon 2024 Tacrolimus (Bld) [Mass/Vol] 11.1 ng/mL Normal 5.0-20.0 [facility] Comment on above: Order Comment: Speci men Type: BLOOD SPECIMENOrdering Facility: [facility] Address: [address] [place] [address] Result Comment: Keiko vidualized target levels for a given patient will [...] situation. Test performed by chemiluminescent immunoassay using Cocrystal Discovery Alinity i. Performed By: #### 1 1253-2 ####[facility] LABCLIA [id number] [place] [address] [place] BODY FLUID CELL COUNTon 07-0 Clarity (Unsp spec) Cloudy Abnormal Clear [facility] Comment on above: Order Comment: Speci men Type: FLUID SPECIMENOrdering Facility: [facility] Address: [address] [place] [address] Performed By: #### L [id number], CCBF ####[facility] LABCLIA [id number] [place] [address] [place] Color (Body fld) Yellow Normal Yellow [facility] Comment on above: Order Comment: Speci men Type: FLUID SPECIMENOrdering Facility: [facility] Address: [address] [place] [address] Performed By: #### L [id number], CCBF ####[facility] LABCLIA [id number] [place] [id number] [place] RBC Manual cnt (Body fld) [#/Vol] 9000 /uL High <2000 [facility] Comment on above: Order Comment: Speci men Type: FLUID SPECIMENOrdering Facility: [facility] Address: [address] [place] [address] Performed By: #### L [id number], CCBF ####[facility] LABCLIA [id number] [address], [place] [address] [place] Specimen source Nom (Body fld) Abdomen Normal [facility] Comment on above: Order Comment: Speci men Type: FLUID SPECIMENOrdering Facility: [facility] Address: [address] [place] [address] Performed By: #### L [id number], CCBF ####[facility] LABCLIA [id number] [address], [place] [address] [place] WBC Manual cnt (Body fld) [#/Vol] 595 /uL Normal <1000 [facility] Comment on above: Order Comment: Speci men Type: FLUID SPECIMENOrdering Facility: [facility] Address: [address] [place] [address] Performed By: #### L [id number], CCBF ####[facility] LABCLIA [id number] [address], [place] [address] [place] BRIEF OP NOTon 10-17-2024 BRIEF OP NOT Normal [facility] Bacteria Spec Anaerobe Culto n 10-17-2024 Bacteria identified Anaer cx Nom (Unsp spec) Negative Normal [facility] Comment on above: Performed By: #### 6 462-6, 635-3 ####[facility] LABCLIA [id number] [address], [facility]95 [place] Bacteria Wnd Culton 10-18-19 25 Bacteria identified Cx Nom (Wound) Abnormal [facility] Comment on above: Performed By: #### 6 462-6, 635-3 ####[facility] LABCLIA [id number] [address], [facility]95 [place] CASE MANAGEMon 10-17-2024 CASE MANAGEM Normal [facility] CBC W Auto Differential pane l (Bld)on 10-17-2024 Basophils (Bld) [#/Vol] 0.05 10*3/uL Normal <0.11 [facility] Comment on above: Order Comment: Speci men Type: BLOOD SPECIMENOrdering Facility: [facility] Address: [address] [place] [address] Performed By: #### 5 7021-8 ####[facility] LABCLIA [id number] [address] [place] [address] [place] Basophils/100 WBC (Bld) 0.6 % Normal [facility] Comment on above: Order Comment: Speci men Type: BLOOD SPECIMENOrdering Facility: [facility] Address: [address] [place] [address] Performed By: #### 5 7021-8 ####[facility] LABCLIA [id number] [address], [place] [address] [place] Differential cell count method Nom (Bld) Auto Normal [facility] Comment on above: Order Comment: Speci men Type: BLOOD SPECIMENOrdering Facility: [facility] Address: [address] [place] [address] Performed By: #### 5 7021-8 ####[facility] LABCLIA [id number] [address], [facility]95 [place] Eosinophils (Bld) [#/Vol] 0.21 10*3/uL Normal <0.46 [facility] Comment on above: Order Comment: Speci men Type: BLOOD SPECIMENOrdering Facility: [facility] Address: [address] [place] [address] Performed By: #### 5 7021-8 ####[facility] LABCLIA [id number] [place] [id number] [place] Eosinophils/100 WBC (Bld) 2.4 % Normal [facility] Comment on above: Order Comment: Speci men Type: BLOOD SPECIMENOrdering Facility: [facility] Address: [address] [place] [address] Performed By: #### 5 7021-8 ####[facility] LABCLIA [id number] [place] [address] [place] Erythrocyte distribution width (RBC) [Ratio] 17.2 % High 11.5-15.0 [facility] Comment on above: Order Comment: Speci men Type: BLOOD SPECIMENOrdering Facility: [facility] Address: [address] [place] [address] Performed By: #### 5 7021-8 ####[facility] LABIA [id number] [place] [address] [place] Hematocrit (Bld) [Volume fraction] 23.1 % Low 39.0-51.0 [facility] Comment on above: Order Comment: Speci men Type: BLOOD SPECIMENOrdering Facility: [facility] Address: [address] [place] [address] Performed By: #### 5 7021-8 ####[facility] LABIA [id number] [place] [address] [place] Hemoglobin (Bld) [Mass/Vol] 7.2 g/dL Low 13.0-17.0 [facility] Comment on above: Order Comment: Speci men Type: BLOOD SPECIMENOrdering Facility: [facility] Address: [address] [place] [address] Performed By: #### 5 7021-8 ####[facility] LABIA [id number] [place] [address] [place] Immature granulocytes (Bld) [#/Vol] 0.09 10*3/uL Normal <0.10 [facility] Comment on above: Order Comment: Speci men Type: BLOOD SPECIMENOrdering Facility: [facility] Address: [address] [place] [address] Performed By: #### 5 7021-8 ####[facility] LABIA [id number] [place] [address] [place] Immature granulocytes/100 WBC (Bld) 1.0 % Normal [facility] Comment on above: Order Comment: Speci men Type: BLOOD SPECIMENOrdering Facility: [facility] Address: [address] [place] [address] Performed By: #### 5 7021-8 ####[facility] LABCLIA [id number] [place] [address] [place] Lymphocytes (Bld) [#/Vol] 0.40 10*3/uL Low 1.00-4.00 [facility] Comment on above: Order Comment: Speci men Type: BLOOD SPECIMENOrdering Facility: [facility] Address: [address] [place] [address] Performed By: #### 5 7021-8 ####[facility] LABIA [id number] [place] [address] [place] Lymphocytes/100 WBC (Bld) 4.6 % Normal [facility] Comment on above: Order Comment: Speci men Type: BLOOD SPECIMENOrdering Facility: [facility] Address: [address] [place] [address] Performed By: #### 5 7021-8 ####[facility] LABIA [id number] [place] [address] [place] MCH (RBC) [Entitic mass] 29.6 pg Normal 26.0-34.0 [facility] Comment on above: Order Comment: Speci men Type: BLOOD SPECIMENOrdering Facility: [facility] Address: [address] [place] [address] Performed By: #### 5 7021-8 ####[facility] LABIA [id number] [place] [address] [place] MCHC (RBC) [Mass/Vol] 31.2 g/dL Normal 30.5-36.0 [facility] Comment on above: Order Comment: Speci men Type: BLOOD SPECIMENOrdering Facility: [facility] Address: [address] [place] [address] Performed By: #### 5 7021-8 ####[facility] LABCLIA [id number] [address], [place] [address] [place] MCV (RBC) [Entitic vol] 95.1 fL Normal 80.0-100.0 [facility] Comment on above: Order Comment: Speci men Type: BLOOD SPECIMENOrdering Facility: [facility] Address: [address] [place] [address] Performed By: #### 5 7021-8 ####[facility] LABCLIA [id number] [address], [place] [address] [place] Monocytes (Bld) [#/Vol] 0.44 10*3/uL Normal <0.87 [facility] Comment on above: Order Comment: Speci men Type: BLOOD SPECIMENOrdering Facility: [facility] Address: [address] [place] [address] Performed By: #### 5 7021-8 ####[facility] LABIA [id number] [place] [address] [place] Monocytes/100 WBC (Bld) 5.0 % Normal [facility] Comment on above: Order Comment: Speci men Type: BLOOD SPECIMENOrdering Facility: [facility] Address: [address] [place] [address] Performed By: #### 5 7021-8 ####[facility] LABCLIA [id number] [place] [address] [place] Neutrophils (Bld) [#/Vol] 7.60 10*3/uL High 1.45-7.50 [facility] Comment on above: Order Comment: Speci men Type: BLOOD SPECIMENOrdering Facility: [facility] Address: [address] [place] [address] Performed By: #### 5 7021-8 ####[facility] LABIA [id number] [place] [address] [place] Neutrophils/100 WBC (Bld) 86.4 % Normal [facility] Comment on above: Order Comment: Speci men Type: BLOOD SPECIMENOrdering Facility: [facility] Address: [address] [place] [address] Performed By: #### 5 7021-8 ####[facility] LABCLIA [id number] [facility] [address], [place] [address] [place] Nucleated RBC (Bld) [#/Vol] 10*3/uL Normal <0.01 [facility] Comment on above: Order Comment: Speci men Type: BLOOD SPECIMENOrdering Facility: [facility] Address: [address] [place] [address] Performed By: #### 5 7021-8 ####[facility] LABCLIA [id number] [address], [place] [address] [place] Nucleated RBC/100 WBC (Bld) [Ratio] 0.0 /100 WBC Normal [facility] Comment on above: Order Comment: Speci men Type: BLOOD SPECIMENOrdering Facility: [facility] Address: [address] [place] [address] Performed By: #### 5 7021-8 ####[facility] LABCLIA [id number] [address], [facility]95 [place] Platelet mean volume (Bld) [Entitic vol] 9.0 fL Normal 9.0-12.7 [facility] Comment on above: Order Comment: Speci men Type: BLOOD SPECIMENOrdering Facility: [facility] Address: [address] [place] [address] Performed By: #### 5 7021-8 ####[facility] LABCLIA [id number] [place] [id number] [place] Platelets (Bld) [#/Vol] 412 10*3/uL High 150-400 [facility] Comment on above: Order Comment: Speci men Type: BLOOD SPECIMENOrdering Facility: [facility] Address: [address] [place] [address] Performed By: #### 5 7021-8 ####[facility] LABIA [id number] [place] [id number] [place] RBC (Bld) [#/Vol] 2.43 10*6/uL Low 4.20-6.00 [facility] Comment on above: Order Comment: Speci men Type: BLOOD SPECIMENOrdering Facility: [facility] Address: [address] [place] [address] Performed By: #### 5 7021-8 ####[facility] LABIA [id number] [place] [id number] [place] WBC (Bld) [#/Vol] 8.79 10*3/uL Normal 3.70-11.00 [facility] Comment on above: Order Comment: Speci men Type: BLOOD SPECIMENOrdering Facility: [facility] Address: [address] [place] [address] Performed By: #### 5 7021-8 ####[facility] LABIA [id number] [place] [id number] [place] Comprehensive metabolic 2000 panelon 10-17-2024 Albumin [Mass/Vol] 2.6 g/dL Low 3.9-4.9 [facility] Comment on above: Order Comment: Speci men Type: BLOOD SPECIMENOrdering Facility: [facility] Address: [address] [place] [address] Performed By: #### 2 4323-8, 47777-2, 2777-1 ####[facility] LABIA [id number] [place] [id number] [place] ALP [Catalytic activity/Vol] 565 U/L High 38-113 [facility] Comment on above: Order Comment: Speci men Type: BLOOD SPECIMENOrdering Facility: [facility] Address: [address] [place] [address] Performed By: #### 2 4323-8, , 2776-04 ####[facility] LABCLIA [id number] [address] [address] [place] ALT [Catalytic activity/Vol] 20 U/L Normal 10-54 [facility] Comment on above: Order Comment: Speci men Type: BLOOD SPECIMENOrdering Facility: [facility] Address: [address] [place] [address] Performed By: #### 2 4323-8, , 2776-04 ####[facility] LABCLIA [id number] [address] [address] [place] Anion gap [Moles/Vol] 9 mmol/L Normal 8-15 [facility] Comment on above: Order Comment: Speci men Type: BLOOD SPECIMENOrdering Facility: [facility] Address: [address] [place] [address] Performed By: #### 2 432-8, , 2776-04 ####[facility] LABCLIA [id number] [place] [id number] [place] AST [Catalytic activity/Vol] 9 U/L Low 14-40 [facility] Comment on above: Order Comment: Speci men Type: BLOOD SPECIMENOrdering Facility: [facility] Address: [address] [place] [address] Performed By: #### 2 4323-8, , 2776-04 ####[facility] LABCLIA [id number] [address] [address] [place] Bilirubin [Mass/Vol] 0.3 mg/dL Normal 0.2-1.3 [facility] Comment on above: Order Comment: Speci men Type: BLOOD SPECIMENOrdering Facility: [facility] Address: [address] [place] [address] Performed By: #### 2 4323-8, , 2776-04 ####[facility] LABCLIA [id number] [facility] [address] [place] [address] [place] Calcium [Mass/Vol] 8.5 mg/dL Normal 8.5-10.2 [facility] Comment on above: Order Comment: Speci men Type: BLOOD SPECIMENOrdering Facility: [facility] Address: [address] [place] [address] Performed By: #### 2 4323-8, , 2776-04 ####[facility] LABCLIA [id number] [facility] [address] [address] [place] Chloride [Moles/Vol] 103 mmol/L Normal 98-107 [facility] Comment on above: Order Comment: Speci men Type: BLOOD SPECIMENOrdering Facility: [facility] Address: [address] [place] [address] Performed By: #### 2 4323-8, , 2776-04 ####[facility] LABCLIA [id number] [place] [id number] [place] CO2 [Moles/Vol] 23 mmol/L Normal 22-30 [facility] Comment on above: Order Comment: Speci men Type: BLOOD SPECIMENOrdering Facility: [facility] Address: [address] [place] [address] Performed By: #### 2 4323-8, , 2776-04 ####[facility] LABCLIA [id number] [address] [address] [place] Creatinine [Mass/Vol] 1.15 mg/dL Normal 0.73-1.22 [facility] Comment on above: Order Comment: Speci men Type: BLOOD SPECIMENOrdering Facility: [facility] Address: [address] [place], [place] [address] Performed By: #### 2 4323-8, , 2776-04 ####[facility] LABCLIA [id number] [address] [address] [place] Creatinine and Glomerular filtration rate.predicted panel (S/P/Bld) 68 mL/min/1.73m??? Normal >=60 [facility] Comment on above: Order Comment: Mary flores Type: BLOOD SPECIMENOrdering Facility: [facility] Address: [address] [place] [address] Result Comment: Varsha mated Glomerular Filtration Rate (eGFR) is calculated using the 2020 CKD-EPI creatinine equation. This equation utilizes serum creatinine, sex, and age as parameters. The creatinine assay has traceable calibration to isotope dilution-mass spectrometry. Refer to KDIGO guidelines for clinical interpretation. In patients with unstable renal function, e.g. those with acute kidney injury, the eGFR may not accurately reflect actual GFR. Performed By: #### 2 4323-8, , 2776-04 ####[facility] LABCLIA [id number] [place] [id number] [place] Glucose [Mass/Vol] 103 mg/dL High 74-99 [facility] Comment on above: Order Comment: Mary flores Type: BLOOD SPECIMENOrdering Facility: [facility] Address: [address] [place] [address] Result Comment: The [place] [employer] (ADA) provides guidance for cutoff [...] Standards of Medical Care in Diabetes 2016, [place] [employer]. Diabetes Care. 2016.39(Suppl 1). Performed By: #### 2 4323-8, , 2776-04 ####[facility] LABIA [id number] [place] [id number] [place] Potassium [Moles/Vol] 4.3 mmol/L Normal 3.7-5.1 [facility] Comment on above: Order Comment: Speci men Type: BLOOD SPECIMENOrdering Facility: [facility] Address: [address] [place], [place] [address] Performed By: #### 2 4323-8, , 2776-04 ####[facility] LABCLIA [id number] [address] [address] [place] Protein [Mass/Vol] 5.0 g/dL Low 6.3-8.0 [facility] Comment on above: Order Comment: Speci men Type: BLOOD SPECIMENOrdering Facility: [facility] Address: [address] [place], [place] [address] Performed By: #### 2 4323-8, , 2776-04 ####[facility] LABCLIA [id number] [address] [address] [place] Sodium [Moles/Vol] 135 mmol/L Low 136-144 [facility] Comment on above: Order Comment: Speci men Type: BLOOD SPECIMENOrdering Facility: [facility] Address: [address] [place], [place] [address] Performed By: #### 2 4323-8, , 2776-04 ####[facility] LABCLIA [id number] [address] [address] [place] Urea nitrogen [Mass/Vol] 6 mg/dL Low 9-24 [facility] Comment on above: Order Comment: Speci men Type: BLOOD SPECIMENOrdering Facility: [facility] Address: [address] [place] [address] Performed By: #### 2 4323-8, , 2776-04 ####[facility] LABCLIA [id number] [address] [address] [place] ECHOon 10-17-2024 Echocardiography Report: Transthoracic Echo [facility] Bedside Date of service: 10/17/2024 11:11:17 AM 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 Ordering physician: BRANDI BECKETT Exam indication: Shortness of Breath Technologist: [...] * * * Final * * * [employer] : [id number]^[employer]^SI^CELESTE ID [facility], Radiologi MD lorenzo - 10/17/2024 Echocardiography Report: Transthoracic Echo [facility] Bedside Date of service: 10/17/2024 11:11:17 AM 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 Ordering physician: BRANDI BECKETT Exam indication: Shortness of Breath Technologist: [...] * * Final * * * CC [employer] : [id number]^[employer]^SI^CELESTE ID [facility] Radiology Study observation (narrative) [facility] ECHOOrdered By: Radiologist Radiology on 10-17-2024 [facility] [employer] Work Phone: HISTORY PHYSICALon 5 HISTORY PHYSICAL Normal [facility] MANUAL DIFFERENTIAL, BODY FL UIDon 10-17-2024 DIF TTL, BODY FLUID 100 cells counted Normal [facility] Comment on above: Order Comment: Speci men Type: FLUID SPECIMENOrdering Facility: [facility] Address: [address] [place] [address] Performed By: #### L [id number], CCBF ####[facility] LABCLIA [id number] [address] [place] [address] [place] MACRO%, BF 6 % Low 64-80 [facility] Comment on above: Order Comment: Speci men Type: FLUID SPECIMENOrdering Facility: [facility] Address: [address] [place] [address] Performed By: #### L [id number], CCBF ####[facility] LABCLIA [id number] [place] [id number] [place] NEUT%, BF 94 % High 0-1 [facility] Comment on above: Order Comment: Speci men Type: FLUID SPECIMENOrdering Facility: [facility] Address: [address] [place] [address] Performed By: #### L [id number], CCBF ####[facility] LABCLIA [id number] [place] [id number] [place] Magnesium SerPl-mCncon 10-17 Magnesium [Mass/Vol] 1.5 mg/dL Low 1.7-2.3 [facility] Comment on above: Order Comment: Speci men Type: BLOOD SPECIMENOrdering Facility: [facility] Address: [address] [place] [address] Performed By: #### 2 4323-8, 77424-9, 2777-1 ####[facility] LABCLIA [id number] [place] [id number] [place] PT EDon 10-17-2024 PT ED Normal [facility] Phosphate SerPl-mCncon 10-17 Phosphate [Mass/Vol] 3.4 mg/dL Normal 2.7-4.8 [facility] Comment on above: Order Comment: Speci men Type: BLOOD SPECIMENOrdering Facility: [facility] Address: [address] [place] [address] Performed By: #### 2 4323-8, 49197-4, 2777-1 ####[facility] LABCLIA [id number] [place] [address] [place] SOCIAL WORKon 10-17-2024 SOCIAL WORK Normal [facility] THERAPY NTon 10-17-2024 THERAPY NT Normal [facility] THERAPY NT Normal [facility] Tacrolimus Bld-ncon 2024 Tacrolimus (Bld) [Mass/Vol] 9.5 ng/mL Normal 5.0-20.0 [facility] Comment on above: Order Comment: Speci men Type: BLOOD SPECIMENOrdering Facility: [facility] Address: [address] [place] [address] Result Comment: Keiko vidualized target levels for a given patient will [...] situation. Test performed by chemiluminescent immunoassay using [employer] i. Performed By: #### 1 1253-2 ####[facility] LABCLIA [id number] [place] [address] [place] US DRN PLACE PERIT/RETROP FL BIon 10-17-2024 US LEANNA BRADLEY PERIT/RETROP FL BI Normal [facility] CASE MANAGEMon 10-16-2024 CASE MANAGEM Normal [facility] CBC W Auto Differential pane l (Bld)on 10-16-2024 Basophils (Bld) [#/Vol] 0.08 10*3/uL Normal <0.11 [facility] Comment on above: Order Comment: Speci men Type: BLOOD SPECIMENOrdering Facility: [facility] Address: [address] [place] [address] Performed By: #### 5 7021-8 ####[facility] LABCLIA [id number] [facility] [place] [address] [place] Basophils/100 WBC (Bld) 0.7 % Normal [facility] Comment on above: Order Comment: Speci men Type: BLOOD SPECIMENOrdering Facility: [facility] Address: [address] [place] [address] Performed By: #### 5 7021-8 ####[facility] LABCLIA [id number] [place] [address] [place] Eosinophils (Bld) [#/Vol] 0.17 10*3/uL Normal <0.46 [facility] Comment on above: Order Comment: Speci men Type: BLOOD SPECIMENOrdering Facility: [facility] Address: [address] [place] [address] Performed By: #### 5 7021-8 ####[facility] LABCLIA [id number] [place] [address] [place] Eosinophils/100 WBC (Bld) 1.5 % Normal [facility] Comment on above: Order Comment: Speci men Type: BLOOD SPECIMENOrdering Facility: [facility] Address: [address] [place] [address] Performed By: #### 5 7021-8 ####[facility] LABCLIA [id number] [place] [address] [place] Hematocrit (Bld) [Volume fraction] 24.5 % Low 39.0-51.0 [facility] Comment on above: Order Comment: Speci men Type: BLOOD SPECIMENOrdering Facility: [facility] Address: [address] [place] [address] Performed By: #### 5 7021-8 ####[facility] LABCLIA [id number] [place] [address] [place] RBC (Bld) [#/Vol] 2.57 10*6/uL Low 4.20-6.00 [facility] Comment on above: Order Comment: Speci men Type: BLOOD SPECIMENOrdering Facility: [facility] Address: [address] [place] [address] Performed By: #### 5 7021-8 ####[facility] LABCLIA [id number] [place] [address] [place] [facility] O+P SPEC MICROon 025 [facility] O+P SPEC MICRO OVA AND PARASITE EXAM: No Parasites Seen [facility] Original Ordering Provider: BRNADI BECKETT [facility] CT ABD/PEL W IVCONon 025 CT ABD/PEL W IVCON Normal [facility] Comprehensive metabolic 2000 panelon 10-16-2024 Albumin [Mass/Vol] 2.7 g/dL Low 3.9-4.9 [facility] Comment on above: Order Comment: Speci men Type: BLOOD SPECIMENOrdering Facility: [facility] Address: [address] [place] [address] Performed By: #### 1 9123-9, 84880-2, 277-1 ####[facility] LABCLIA [id number] [place] [address] [place] ALP [Catalytic activity/Vol] 754 U/L High 38-113 [facility] Comment on above: Order Comment: Speci men Type: BLOOD SPECIMENOrdering Facility: [facility] Address: [address] [place] [address] Performed By: #### 1 9123-9, 91191-6, 2777-1 ####[facility] LABCLIA [id number] [place] [address] [place] ALT [Catalytic activity/Vol] 31 U/L Normal 10-54 [facility] Comment on above: Order Comment: Speci men Type: BLOOD SPECIMENOrdering Facility: [facility] Address: [address] [place] [address] Performed By: #### 1 9123-9, 90461-8, 2776- ####[facility] LABCLIA [id number] [place] [id number] [place] Anion gap [Moles/Vol] 11 mmol/L Normal 8-15 [facility] Comment on above: Order Comment: Speci men Type: BLOOD SPECIMENOrdering Facility: [facility] Address: [address] [place] [address] Performed By: #### 1 9123-9, 26950-6, 2776- ####[facility] LABCLIA [id number] [place] [address] [place] AST [Catalytic activity/Vol] 19 U/L Normal 14-40 [facility] Comment on above: Order Comment: Speci men Type: BLOOD SPECIMENOrdering Facility: [facility] Address: [address] [place] [address] Performed By: #### 1 9123-9, 95990-5, 2776- ####[facility] LABCLIA [id number] [place] [id number] [place] Bilirubin [Mass/Vol] 0.4 mg/dL Normal 0.2-1.3 [facility] Comment on above: Order Comment: Speci men Type: BLOOD SPECIMENOrdering Facility: [facility] Address: [address] [place], [place] [address] Performed By: #### 1 9123-9, 56357-8, 2776- ####[facility] LABCLIA [id number] [address] [address] [place] Calcium [Mass/Vol] 8.8 mg/dL Normal 8.5-10.2 [facility] Comment on above: Order Comment: Speci men Type: BLOOD SPECIMENOrdering Facility: [facility] Address: [address] [place] [address] Performed By: #### 1 9123-9, 88786-6, 2777- ####[facility] LABCLIA [id number] [address] [address] [place] Chloride [Moles/Vol] 102 mmol/L Normal 98-107 [facility] Comment on above: Order Comment: Speci men Type: BLOOD SPECIMENOrdering Facility: [facility] Address: [address] [place] [address] Performed By: #### 1 9123-9, 51388-6, 2777- ####[facility] LABCLIA [id number] [place] [address] [place] CO2 [Moles/Vol] 24 mmol/L Normal 22-30 [facility] Comment on above: Order Comment: Speci men Type: BLOOD SPECIMENOrdering Facility: [facility] Address: [address] [place] [address] Performed By: #### 1 9123-9, 83001-1, 27710-15 ####[facility] LABCLIA [id number] [place] [address] [place] Creatinine [Mass/Vol] 1.14 mg/dL Normal 0.73-1.22 [facility] Comment on above: Order Comment: Speci men Type: BLOOD SPECIMENOrdering Facility: [facility] Address: [address] [place], [place] [address] Performed By: #### 1 9123-9, 54591-0, 2777- ####[facility] LABCLIA [id number] [address] [address] [place] Glucose [Mass/Vol] 123 mg/dL High 74-99 [facility] Comment on above: Order Comment: Speci men Type: BLOOD SPECIMENOrdering Facility: [facility] Address: [address] [place] [address] Result Comment: The [place] Diabetes Association (ADA) provides guidance for cutoff [...] Standards of Medical Care in Diabetes 2016, [place] [employer]. Diabetes Care. 2016.39(Suppl 1). Performed By: #### 1 9123-9, 46734-4, 2776-04 ####[facility] LABCLIA [id number] [place] [address] [place] Potassium [Moles/Vol] 4.4 mmol/L Normal 3.7-5.1 [facility] Comment on above: Order Comment: Speci men Type: BLOOD SPECIMENOrdering Facility: [facility] Address: [address] [place] [address] Performed By: #### 1 9123-9, , 2776-04 ####[facility] LABCLIA [id number] [place] [address] [place] Protein [Mass/Vol] 5.2 g/dL Low 6.3-8.0 [facility] Comment on above: Order Comment: Speci men Type: BLOOD SPECIMENOrdering Facility: [facility] Address: [address] [place] [address] Performed By: #### 1 9123-9, , 2776-04 ####[facility] LABCLIA [id number] [place] [id number] [place] Sodium [Moles/Vol] 137 mmol/L Normal 136-144 [facility] Comment on above: Order Comment: Speci men Type: BLOOD SPECIMENOrdering Facility: [facility] Address: [address] [place] [address] Performed By: #### 1 9123-9, 73169-1, 2776- ####[facility] LABCLIA [id number] [place] [id number] [place] Urea nitrogen [Mass/Vol] 8 mg/dL Low 9-24 [facility] Comment on above: Order Comment: Speci men Type: BLOOD SPECIMENOrdering Facility: [facility] Address: [address] [place] [address] Performed By: #### 1 9123-9, 45455-3, 2776-04 ####[facility] LABCLIA [id number] [place] [id number] [place] Magnesium SerPl-ncon 10-16 Magnesium [Mass/Vol] 1.8 mg/dL Normal 1.7-2.3 [facility] Comment on above: Order Comment: Speci men Type: BLOOD SPECIMENOrdering Facility: [facility] Address: [address] [place] [address] Performed By: #### 1 9123-9, 98852-2, 2776-04 ####[facility] LABCLIA [id number] [place] [id number] [place] NUTRITIONon 10-16-2024 NUTRITION Normal [facility] Phosphate SerPl-mCncon 10-16 Phosphate [Mass/Vol] 3.5 mg/dL Normal 2.7-4.8 [facility] Comment on above: Order Comment: Speci men Type: BLOOD SPECIMENOrdering Facility: [facility] Address: [address] [place], [place] [address] Performed By: #### 1 9123-9, 97877-2, 2776- ####[facility] LABCLIA [id number] [place] [id number] [place] THERAPY NTon 10-16-2024 THERAPY NT Normal [facility] THERAPY NT Normal [facility] Tacrolimus Bld-mCncon 2024 Tacrolimus (Bld) [Mass/Vol] 8.5 ng/mL Normal 5.0-20.0 [facility] Comment on above: Order Comment: Speci men Type: BLOOD SPECIMENOrdering Facility: [facility] Address: [address] [place] [address] Result Comment: Keiko vidualized target levels for a given patient will [...] situation. Test performed by chemiluminescent immunoassay using Cocrystal Discovery Alinity i. Performed By: #### 1 1253-2 ####[facility] LABCLIA [id number] [place] [address] [place] [facility] CYTOLOGY NON-GYNon 10-15 AP DISCLAIMER [facility] Comment on above: Laboratory Developed Test (LDT) Disclaimer: Performance characteristics of immunohistochemical, immunofluorescent, and chromogenic in-situ hybridization tests have been determined by the performing laboratory within [facility]'s [facility] Pathology and Laboratory Medicine Department ([facility], [facility], [facility], [facility], [facility], [facility], or [facility]) in a manner consistent with CLIA requirements. One or more of these tests may not have been cleared or approved by the FDA. [facility] is regulated under CLIA as qualified to perform high-complexity testing. These tests are used for clinical purposes. These should not be regarded as investigational or for research. Positive and negative controls stain appropriately. [facility] CASE REPORT [facility] Comment on above: Medical Cytology Rep ort Case: [id number] Authorizing Provider: Nilay Villatoro MD Collected: 10/14/2024 03:31 PM Ordering Location: [place] [address] Received: 10/14/2024 06:22 PM Pathologist: Belén Green MD Specimen: Pleural Cavity, Left [facility] CLINICAL HISTORY [facility] Comment on above: Pre-op diagnosis: Pleural effusion [J90] [facility] FINAL DIAGNOSIS [facility] Comment on above: A. Left Pleural Cavi ty Fluid: Negative for malignant cells. Acute inflammation. Reactive mesothelial cells. The following cell blocks were associated with this case: A1 Cell Block, Alcohol Fixed at 1715 EDT [facility] FINAL PERFORMING LAB [facility] Comment on above: Technical component, graining press operator screening performed at: [facility], [address] [place] [address] CLIA: [id number] Diagnostic interpretation performed at: [facility], [address] [place] [address] CLIA# [id number] Jet Dyeing Machine Operator: Emmett New MD [facility] GROSS DESCRIPTION [facility] Comment on above: A. Pleural Cavity, L eft 60 cc cloudy kaylie fluid with material. ThinPrep and Cell Block prepared. [facility] ORDER COMMENT [facility] Comment on above: Pre-op diagnosis: Pleural effusion [J90] Specimen Type: SPECI MEN FROM PLEURA OBTAINED BY THORACENTESIS Ordering Facility: [facility] Address: [address] [place] [address] Original Ordering Provider: NILAY TEJADA [facility] RESP PATH 12B PNL SPEC N AA+PROBEon 10-09-2024 [facility] RESP PATH 12B PNL SPEC JESSICA+PROBE INFLUENZA A RNA: Not detected Abnormal [facility] RESP PATH 12B PNL SPEC JESSICA+PROBE INFLUENZA B RNA: Not detected Abnormal [facility] RESP PATH 12B PNL SPEC JESSICA+PROBE RESPIRATORY SYNCYTIAL VIRUS (RSV) RNA: Not detected Abnormal [facility] RESP PATH 12B PNL SPEC JESSICA+PROBE HUMAN METAPNEUMOVIRUS (HMPV) RNA: Not detected Abnormal [facility] RESP PATH 12B PNL SPEC JESSICA+PROBE HUMAN RHINOVIRUS/ENTEROVIRUS RNA: Not detected Abnormal [facility] RESP PATH 12B PNL SPEC JESSICA+PROBE ADENOVIRUS DNA: Not detected Abnormal [facility] RESP PATH 12B PNL SPEC JESSICA+PROBE PARAINFLUENZA 1 RNA: Not detected Abnormal [facility] RESP PATH 12B PNL SPEC JESSICA+PROBE PARAINFLUENZA 2 RNA: Not detected Abnormal [facility] RESP PATH 12B PNL SPEC JESSICA+PROBE PARAINFLUENZA 3 RNA: Detected Abnormal [facility] RESP PATH 12B PNL SPEC JESSICA+PROBE PARAINFLUENZA 4 RNA: Not detected Abnormal [facility] RESP PATH 12B PNL SPEC JESSICA+PROBE CORONAVIRUS 229E RNA: Not detected Abnormal [facility] RESP PATH 12B PNL SPEC JESSICA+PROBE CORONAVIRUS OC43 RNA: Not detected Abnormal [facility] RESP PATH 12B PNL SPEC JESSICA+PROBE CORONAVIRUS NL63 RNA: Not detected Abnormal [facility] RESP PATH 12B PNL SPEC JESSICA+PROBE CORONAVIRUS HKU1 RNA: Not detected Abnormal [facility] RESP PATH 12B PNL SPEC JESSICA+PROBE CHLAMYDIA PNEUMONIAE DNA: Not detected Abnormal [facility] RESP PATH 12B PNL SPEC JESSICA+PROBE MYCOPLASMA PNEUMONIAE DNA: Not detected Abnormal [facility] RESP PATH 12B PNL SPEC JESSICA+PROBE BORDETELLA PERTUSSIS DNA: Not detected Abnormal [facility] RESP PATH 12B PNL SPEC JESSICA+PROBE BORDETELLA PARAPERTUSSIS DNA: Not detected Abnormal [facility] Interpretation and review of laboratory results Abnormal [facility] SARS-CoV-2 (COVID-19) RNA JESSICA+probe Ql (Unsp spec) SARS-COV-2 (AGENT OF COVID-19) RNA: Not detected Abnormal [facility] Original Ordering Provider: BRANDI BECKETT [facility] C-REACTIVE PROTEINon 025 CRP [Mass/Vol] 22.3 mg/dL High [facility] - 0.9 mg/dL [facility] CBC W Auto Differential pane l (Bld)on 10-07-2024 Basophils (Bld) [#/Vol] 0.04 10*3/uL [facility] Differential cell count method Nom (Bld) Auto [facility] Eosinophils (Bld) [#/Vol] 0.36 10*3/uL [facility] Immature granulocytes (Bld) [#/Vol] 0.13 10*3/uL High [facility] Immature granulocytes/100 WBC (Bld) 1.4 % [facility] Lymphocytes (Bld) [#/Vol] 0.26 10*3/uL Low [facility] Monocytes (Bld) [#/Vol] 1.34 10*3/uL High [facility] Neutrophils (Bld) [#/Vol] 7.15 10*3/uL [facility] Nucleated RBC (Bld) [#/Vol] [facility] Nucleated RBC/100 WBC (Bld) [Ratio] 0 % /100 WBC [facility] Platelet mean volume (Bld) [Entitic vol] 9.1 fL 9.0 - 12.7 fL [facility] Platelets (Bld) [#/Vol] 503 10*3/uL High [facility] WBC (Bld) [#/Vol] 9.28 10*3/uL [facility] CBC W AUTO DIFF BLDon [facility] BASOPHILS # BLD AUTO 0.04 [facility] DIFFERENTIAL METHOD BLD Auto [facility] EOSINOPHIL # BLD AUTO 0.36 [facility] LYMPHOCYTES # BLD AUTO 0.26 Low [facility] MONOCYTES # BLD AUTO 1.34 High [facility] NEUTROPHILS # BLD AUTO 7.15 [facility] NRBC # BLD AUTO <0.01 [facility] NRBC/100 WBC BLD-RTO 0 /100 WBC [facility] PLATELET # BLD AUTO 503 High [facility] PMV BLD AUTO 9.1 fL 9.0 - 12.7 fL [facility] WBC # BLD AUTO 9.28 [facility] IMM GRANULOCYTES # BLD AUTO 0.13 High [facility] IMM GRANULOCYTES/LEUK NFR BLD AUTO 1.4 % [facility] Specimen Type: BLOOD SPECIMEN Ordering Facility: [facility] Address: [address] [place] [address] Original Ordering Provider: DAVID TEJADA CT ABD/PEL WO IVCONon 2024 * * *Final Report* * * DATE OF EXAM: Oct 07 2024 3:00PM [facility] 0531 - CT ABD/PEL WO IVCON [...] on 10/07/2024 3:54 PM via verbal communication. 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: SRINI Transcribe Date/Time: Oct 07 2024 3:17P Dictated by : JOSE GUADALUPE VÁZQUEZ MD This examination was interpreted and the report reviewed and electronically signed by: JOSE GUADALUPE VÁZQUEZ MD on Oct 07 2024 4:01PM EST [id number]^[email or web address]_IDC^SI^ACN [facility] Radiology, Radiologi MD lorenzo - 10/07/2024 * * *Final Report* * * DATE OF EXAM: Oct 07 2024 3:00PM [facility] 0531 - CT ABD/PEL WO IVCON [...] the T11 vertebral body. COMMUNICATION: Communicated with DAVIDDIANE CRUZ on 10/07/2024 3:54 PM via verbal communication. 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: PSCPatricia Transcribe Date/Time: Oct 07 2024 3:17P Dictated by : JOSE GUADALUPE VÁZQUEZ MD This examination was interpreted and the report reviewed and electronically signed by: JOSE GUADALUPE VÁZQUEZ MD on Oct 07 2024 4:01PM EST [id number]^AGFA_IDC^SI^[facility] CT ABD/PEL WO IVCON * * *Final Report* * * DATE OF EXAM: Oct 07 2024 3:00PM [facility] 0531 - CT ABD/PEL WO IVCON [...] on 10/07/2024 3:54 PM via verbal communication. 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: SRINI Transcribe Date/Time: Oct 07 2024 3:17P Dictated by : JOSE GUADALUPE VÁZQUEZ MD This examination was interpreted and the report reviewed and electronically signed by: JOSE GUADALUPE VÁZQUEZ MD on Oct 07 2024 4:01PM EST [id number] [facility] CT ABD/PEL WO IVCONOrdered B y: Radiologist Radiology on 10-07-2024 [email or web address] Work Phone: CT BRAIN WO IVCONon 10-08-19 * * *Final Report* * * DATE OF EXAM: Oct 07 2024 3:00PM [facility] 0504 - CT BRAIN WO IVCON [...] PROCESS. NO SIGNIFICANT INTERVAL CHANGE SINCE 08/27/2024. 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: PSCB Transcribe Date/Time: Oct 07 2024 3:20P Dictated by : ROSAURA CERVANTES MD This examination was interpreted and the report reviewed and electronically signed by: ROSAURA CERVANTES MD on Oct 07 2024 3:22PM EST [id number]^AGFA_IDC^SI^ACN [facility] Radiology, Radiologi MD lorenzo - 10/07/2024 * * *Final Report* * * DATE OF EXAM: Oct 07 2024 3:00PM [facility] 0504 - CT BRAIN WO IVCON [...] PROCESS. NO SIGNIFICANT INTERVAL CHANGE SINCE 08/27/2024. 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: SRINI Transcribe Date/Time: Oct 07 2024 3:20P Dictated by : ROSAURA CERVANTES MD This examination was interpreted and the report reviewed and electronically signed by: ROSAURA CERVANTES MD on Oct 07 2024 3:22PM EST [id number]^AGFA_IDC^SI^ACN [facility] CT BRAIN WO IVCON * * *Final Report* * * DATE OF EXAM: Oct 07 2024 3:00PM [facility] 0504 - CT BRAIN WO IVCON [...] PROCESS. NO SIGNIFICANT INTERVAL CHANGE SINCE 08/27/2024. 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: SRINI Transcribe Date/Time: Oct 07 2024 3:20P Dictated by : ROSAURA CERVANTES MD This examination was interpreted and the report reviewed and electronically signed by: ROSAURA CERVANETS MD on Oct 07 2024 3:22PM EST [id number] Normal [facility] CT Head WO contraston 2024 IMPRESSION: NO CT EVIDENCE OF ACUTE INTRACRANIAL PROCESS. NO SIGNIFICANT INTERVAL CHANGE SINCE 08/27/2024. 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: SRINI Transcribe Date/Time: Oct 07 2024 3:20P Dictated by : ROSAURA CERVANTES MD This examination was interpreted and the report reviewed and electronically signed by: ROSAURA CERVANTES MD on Oct 07 2024 3:22PM EST [facility] * * *Final Report* * * DATE OF EXAM: Oct 07 2024 3:00PM [facility] 0504 - CT BRAIN WO IVCON [...] are unremarkable. Localizer images: No additional findings. [facility] Provider, Alexander [facility] - 10/07/2024 * * *Final Report* * * DATE OF EXAM: Oct 07 2024 3:00PM [facility] 0504 - CT BRAIN WO IVCON [...] PROCESS. NO SIGNIFICANT INTERVAL CHANGE SINCE 08/27/2024. 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 Trans[facility] Date/Time: Oct 07 2024 3:20P Dictated by : ROSAURA CERVANTES MD This examination was interpreted and the report reviewed and electronically signed by: ROSAURA CERVANTES MD on Oct 07 2024 3:22PM EST [facility] CYTOMEGALOVIRUS (CMV) DNA, Q UANTITATIVE PCR, PLASMAon 10-07-2024 CMV DNA JESSICA+probe [#/Vol] 82 High [facility] CMV DNA JESSICA+probe [Log #/Vol] 1.91 [facility] CMV DNA JESSICA+probe Qn (P) Detected Abnormal Not Detected [facility] Interpretation and review of laboratory results Abnormal [facility] sav CMV is an in v itro nucleic acid amplification test for the quantitation of cytomegalovirus (CMV) DNA in human EDTA plasma. The linear range of the assay is 34.5 to 10,000,000 IU/mL (1.54 - 7.00 log IU/mL). The lower limit of detection of the assay is 34.5 IU/mL. [facility] Comprehensive metabolic 2000 panelon 10-07-2024 Albumin [Mass/Vol] 2.3 g/dL Low 3.9 - 4.9 g/dL [facility] ALP [Catalytic activity/Vol] 215 U/L High 38 - 113 U/L [facility] ALT [Catalytic activity/Vol] 15 U/L 10 - 54 U/L [facility] Anion gap [Moles/Vol] 15 mmol/L 8 - 15 mmol/L [facility] AST [Catalytic activity/Vol] 22 U/L 14 - 40 U/L [facility] Bilirubin [Mass/Vol] 0.2 mg/dL 0.2 - 1 .3 mg/dL [facility] Calcium [Mass/Vol] 8 mg/dL Low 8.5 - 10. 2 mg/dL [facility] Chloride [Moles/Vol] 101 mmol/L 98 - 10 7 mmol/L [facility] CO2 [Moles/Vol] 19 mmol/L Low 22 - 30 mmol/L [facility] Creatinine [Mass/Vol] 1.09 mg/dL 0.73 - 1.22 mg/dL [facility] GFR/1.73 sq M.predicted among non-blacks MDRD (S/P/Bld) [Vol rate/Area] 73 mL/min/{1.73_m2} - PINF [facility] Comment on above: Estimated Glomerular Filtration Rate (eGFR) is calculated using the 2020 CKD-EPI creatinine equation. This equation utilizes serum creatinine, sex, and age as parameters. The creatinine assay has traceable calibration to isotope dilution-mass spectrometry. Refer to KDIGO guidelines for clinical interpretation. In patients with unstable renal function, e.g. those with acute kidney injury, the eGFR may not accurately reflect actual GFR. Glucose [Mass/Vol] 97 mg/dL 74 - 99 mg/dL [facility] Comment on above: The [place] Diab[employer] [place] Association (ADA) provides guidance for cutoff values [...] Standards of Medical Care in Diabetes 2016, [place] [employer]. Diabetes Care. 2016.39(Suppl 1). Potassium [Moles/Vol] 4.9 mmol/L 3.7 - 5.1 mmol/L [facility] Protein [Mass/Vol] 4.7 g/dL Low 6.3 - 8.0 g/dL [facility] Sodium [Moles/Vol] 135 mmol/L Low 136 - 144 mmol/L [facility] Urea nitrogen [Mass/Vol] 9 mg/dL 9 - 24 mg/dL [facility] GGTon 10-07-2024 Gamma glutamyl transferase [Catalytic activity/Vol] 106 U/L High 10 - 70 U/L [facility] Gamma glutamyl transferase [ Catalytic activity/Vol]on 10-07-2024 Interpretation and review of laboratory results Abnormal [facility] - Hematology and Cell countson 10-07-2024 Basophils/100 WBC (Bld) 0.4 % [facility] Eosinophils/100 WBC (Bld) 3.9 % [facility] Erythrocyte distribution width (RBC) [Ratio] 16 % High 11.5 - 15.0 % [facility] Hematocrit (Bld) [Volume fraction] 22.1 % Low 39.0 - 51.0 % [facility] Hemoglobin (Bld) [Mass/Vol] 7.2 g/dL Low 13.0 - 17.0 g/dL [facility] Lymphocytes/100 WBC (Bld) 2.8 % [facility] MCH (RBC) [Entitic mass] 30.9 pg 26.0 - 34.0 pg [facility] MCHC (RBC) [Mass/Vol] 32.6 g/dL 30.5 - 36.0 g/dL [facility] MCV (RBC) [Entitic vol] 94.8 fL 80.0 - 100.0 fL [facility] Monocytes/100 WBC (Bld) 14.4 % [facility] Neutrophils/100 WBC (Bld) 77.1 % [facility] RBC (Bld) [#/Vol] 2.33 10*6/uL Low 4.20 - 6.00 m/uL [facility] MAGNESIUMon 10-07-2024 Magnesium [Mass/Vol] 1.7 mg/dL 1.7 - 2 .3 mg/dL [facility] Magnesium [Mass/Vol]on 10-07 Interpretation and review of laboratory results Normal [facility] NT PRO BNPon 10-07-2024 Natriuretic peptide.B prohormone N-Terminal [Mass/Vol] 533 pg/mL High NINF - 125 pg/mL [facility] Natriuretic peptide.B prohor dilshad N-Terminal [Mass/Vol]on 10-07-2024 Interpretation and review of laboratory results Abnormal [facility] No Panel InformationOrdered By: Radiologist Radiology on 10-07-2024 [facility] Work Phone: No Panel Informationon 10-07 Interpretation and review of laboratory results Abnormal [facility] Interpretation and review of laboratory results Abnormal [facility] Radiology Study observation (narrative) [facility] TACROLIMUS/[id number] BLOrdered By: Sabrina Bishop on 10-07-2024 Tacrolimus (Bld) [Mass/Vol] 6.6 ng/mL 5.0 - 20.0 ng/mL [facility] Comment on above: Individualized targe t levels for a given patient [...] situation. Test performed by chemiluminescent immunoassay using Cocrystal Discovery Alinity i. Tacrolimus (Bld) [Mass/Vol]O rdered By: Sabrina Bishop on 10-07-2024 Interpretation and review of laboratory results Normal [facility] CBC W Auto Differential pane l (Bld)on 10-05-2024 Basophils (Bld) [#/Vol] 0.03 10*3/uL [facility] Differential cell count method Nom (Bld) Auto [facility] Eosinophils (Bld) [#/Vol] 0.42 10*3/uL [facility] Immature granulocytes (Bld) [#/Vol] 0.09 10*3/uL [facility] Immature granulocytes/100 WBC (Bld) 1 % [facility] Lymphocytes (Bld) [#/Vol] 0.33 10*3/uL Low [facility] Monocytes (Bld) [#/Vol] 1.26 10*3/uL High [facility] Neutrophils (Bld) [#/Vol] 6.83 10*3/uL [facility] Nucleated RBC (Bld) [#/Vol] [facility] Nucleated RBC/100 WBC (Bld) [Ratio] 0 % /100 WBC [facility] Platelet mean volume (Bld) [Entitic vol] 9.1 fL 9.0 - 12.7 fL [facility] Platelets (Bld) [#/Vol] 482 10*3/uL High [facility] WBC (Bld) [#/Vol] 8.96 10*3/uL [facility] CBC W AUTO DIFF BLDon [facility] BASOPHILS # BLD AUTO 0.03 [facility] DIFFERENTIAL METHOD BLD Auto [facility] EOSINOPHIL # BLD AUTO 0.42 [facility] LYMPHOCYTES # BLD AUTO 0.33 Low [facility] MONOCYTES # BLD AUTO 1.26 High [facility] NEUTROPHILS # BLD AUTO 6.83 [facility] NRBC # BLD AUTO <0.01 [facility] NRBC/100 WBC BLD-RTO 0 /100 WBC [facility] PLATELET # BLD AUTO 482 High [facility] PMV BLD AUTO 9.1 fL 9.0 - 12.7 fL [facility] WBC # BLD AUTO 8.96 [facility] IMM GRANULOCYTES # BLD AUTO 0.09 [facility] IMM GRANULOCYTES/[place] NFR BLD AUTO 1 % [facility] Specimen Type: BLOOD SPECIMEN Ordering Facility: [facility] Address: [address] [place] [address] Original Ordering Provider: [facility] - Hematology and Cell counts 10-05-2024 Basophils/100 WBC (Bld) 0.3 % [facility] Eosinophils/100 WBC (Bld) 4.7 % [facility] Erythrocyte distribution width (RBC) [Ratio] 16 % High 11.5 - 15.0 % [facility] Hematocrit (Bld) [Volume fraction] 21.7 % Low 39.0 - 51.0 % [facility] Hemoglobin (Bld) [Mass/Vol] 7 g/dL Low 13.0 - 17.0 g/dL [facility] Lymphocytes/100 WBC (Bld) 3.7 % [facility] MCH (RBC) [Entitic mass] 31.1 pg 26.0 - 34.0 pg [facility] MCHC (RBC) [Mass/Vol] 32.3 g/dL 30.5 - 36.0 g/dL [facility] MCV (RBC) [Entitic vol] 96.4 fL 80.0 - 100.0 fL [facility] Monocytes/100 WBC (Bld) 14.1 % [facility] Neutrophils/100 WBC (Bld) 76.2 % [facility] RBC (Bld) [#/Vol] 2.25 10*6/uL Low 4.20 - 6.00 m/uL [facility] No Panel Informationon 10-05 Interpretation and review of laboratory results Abnormal [facility] B-HYDROXYBUTYRATEon 10-05-19 25 Beta hydroxybutyrate [Moles/Vol] 0.2 mmol/L [facility] - 0.28 mmol/L [facility] Interpretation and review of laboratory results Normal [facility] CBC W Auto Differential pane l (Bld)on 10-04-2024 Basophils (Bld) [#/Vol] 0.03 10*3/uL [facility] Differential cell count method Nom (Bld) Auto [facility] Eosinophils (Bld) [#/Vol] 0.33 10*3/uL [facility] Immature granulocytes (Bld) [#/Vol] 0.07 10*3/uL [facility] Immature granulocytes/100 WBC (Bld) 0.6 % [facility] Lymphocytes (Bld) [#/Vol] 0.29 10*3/uL Low [facility] Monocytes (Bld) [#/Vol] 1.53 10*3/uL High [facility] Neutrophils (Bld) [#/Vol] 8.81 10*3/uL [facility] Nucleated RBC (Bld) [#/Vol] [facility] Nucleated RBC/100 WBC (Bld) [Ratio] 0 % /100 WBC [facility] Platelet mean volume (Bld) [Entitic vol] 9 fL 9.0 - 12.7 fL [facility] Platelets (Bld) [#/Vol] 481 10*3/uL High [facility] WBC (Bld) [#/Vol] 11.06 10*3/uL [facility] CBC W AUTO DIFF BLDon CCF BASOPHILS # BLD AUTO 0.03 [facility] DIFFERENTIAL METHOD BLD Auto [facility] EOSINOPHIL # BLD AUTO 0.33 [facility] LYMPHOCYTES # BLD AUTO 0.29 Low [facility] MONOCYTES # BLD AUTO 1.53 High [facility] NEUTROPHILS # BLD AUTO 8.81 High [facility] NRBC # BLD AUTO <0.01 NINF [facility] NRBC/100 WBC BLD-RTO 0 /100 WBC [facility] PLATELET # BLD AUTO 481 High [facility] PMV BLD AUTO 9 fL 9.0 - 12.7 fL [facility] WBC # BLD AUTO 11.06 High [facility] IMM GRANULOCYTES # [facility] IMM GRANULOCYTES/[place] NFR BLD AUTO 0.6 % [facility] Specimen Type: BLOOD SPECIMEN Ordering Facility: [facility] Address: [address] [place] [address] Original [facility]ing [facility]: [facility] Laboratory - Hematology and Cell countson 10-04-2024 Basophils/100 WBC (Bld) 0.3 % [facility] Eosinophils/100 WBC (Bld) 3 % [facility] Erythrocyte distribution width (RBC) [Ratio] 15.9 % High 11.5 - 15.0 % [facility] Hematocrit (Bld) [Volume fraction] 21.9 % Low 39.0 - 51.0 % [facility] Hemoglobin (Bld) [Mass/Vol] 7.1 g/dL Low 13.0 - 17.0 g/dL [facility] Lymphocytes/100 WBC (Bld) 2.6 % [facility] MCH (RBC) [Entitic mass] 31 pg 26.0 - 34.0 pg [facility] MCHC (RBC) [Mass/Vol] 32.4 g/dL 30.5 - 36.0 g/dL [facility] MCV (RBC) [Entitic vol] 95.6 fL 80.0 - 100.0 fL [facility] Monocytes/100 WBC (Bld) 13.8 % [facility] Neutrophils/100 WBC (Bld) 79.7 % [facility] RBC (Bld) [#/Vol] 2.29 10*6/uL Low 4.20 - 6.00 m/uL [facility] Lactate (Bld) [Moles/Vol]on 10-04-2024 Interpretation and review of laboratory results Abnormal [facility] Lactate [Moles/Vol] 0.4 mmol/L Low 0.5 - 2. 2 mmol/L [facility] MAGNESIUMon 10-04-2024 Magnesium [Mass/Vol] 1.5 mg/dL Low 1.7 - 2 .3 mg/dL [facility] No Panel Informationon 10-04 Interpretation and review of laboratory results Abnormal [facility] Interpretation and review of laboratory results Abnormal [facility] Renal function 2000 panelon 10-04-2024 Albumin [Mass/Vol] 2.3 g/dL Low 3.9 - 4.9 g/dL [facility] Anion gap [Moles/Vol] 11 mmol/L 8 - 15 mmol/L [facility] Calcium [Mass/Vol] 7.9 mg/dL Low 8.5 - 10. 2 mg/dL [facility] Chloride [Moles/Vol] 102 mmol/L 98 - 10 7 mmol/L [facility] CO2 [Moles/Vol] 20 mmol/L Low 22 - 30 mmol/L [facility] Creatinine [Mass/Vol] 1.11 mg/dL 0.73 - 1.22 mg/dL [facility] GFR/1.73 sq M.predicted among non-blacks MDRD (S/P/Bld) [Vol rate/Area] 71 mL/min/{1.73_m2} - PINF [facility] Comment on above: Estimated Glomerular Filtration Rate (eGFR) is calculated using the 2020 CKD-EPI creatinine equation. This equation utilizes serum creatinine, sex, and age as parameters. The creatinine assay has traceable calibration to isotope dilution-mass spectrometry. Refer to KDIGO guidelines for clinical interpretation. In patients with unstable renal function, e.g. those with acute kidney injury, the eGFR may not accurately reflect actual GFR. Glucose [Mass/Vol] 110 mg/dL High 74 - 99 mg/dL [facility] Comment on above: The [place] [employer] [place] Association (ADA) provides guidance for cutoff values [...] Standards of Medical Care in Diabetes 2016, [place] [employer]. Diabetes Care. 2016.39(Suppl 1). Phosphate [Mass/Vol] 3.6 mg/dL 2.7 - 4 .8 mg/dL [facility] Potassium [Moles/Vol] 4.6 mmol/L 3.7 - 5.1 mmol/L [facility] Sodium [Moles/Vol] 133 mmol/L Low 136 - 144 mmol/L [facility] Urea nitrogen [Mass/Vol] 9 mg/dL 9 - 24 mg/dL [facility] C-REACTIVE PROTEINon 025 CRP [Mass/Vol] 24.7 mg/dL High [facility] - 0.9 mg/dL [facility] CBC W Auto Differential pane l (Bld)on 10-03-2024 Basophils (Bld) [#/Vol] 0.03 10*3/uL [facility] Differential cell count method Nom (Bld) Auto [facility] Eosinophils (Bld) [#/Vol] 0.22 10*3/uL [facility] Immature granulocytes (Bld) [#/Vol] 0.21 10*3/uL High [facility] Immature granulocytes/100 WBC (Bld) 1.9 % [facility] Lymphocytes (Bld) [#/Vol] 0.24 10*3/uL Low [facility] Monocytes (Bld) [#/Vol] 1.37 10*3/uL High [facility] Neutrophils (Bld) [#/Vol] 9.23 10*3/uL [facility] Nucleated RBC (Bld) [#/Vol] [facility] Nucleated RBC/100 WBC (Bld) [Ratio] 0 % /100 WBC [facility] Platelet mean volume (Bld) [Entitic vol] 9.2 fL 9.0 - 12.7 fL [facility] Platelets (Bld) [#/Vol] 489 10*3/uL High [facility] WBC (Bld) [#/Vol] 11.3 10*3/uL [facility] CBC W AUTO DIFF BLDon C[facility] BASOPHILS # BLD AUTO 0.03 [facility] DIFFERENTIAL METHOD BLD Auto [facility] EOSINOPHIL # BLD AUTO 0.22 [facility] LYMPHOCYTES # BLD AUTO 0.24 Low [facility] MONOCYTES # BLD AUTO 1.37 High [facility] NEUTROPHILS # BLD AUTO 9.23 High [facility] NRBC # BLD AUTO <0.01 [facility] NRBC/100 WBC BLD-RTO 0 /100 WBC [facility] PLATELET # BLD AUTO 489 High [facility] PMV BLD AUTO 9.2 fL 9.0 - 12.7 fL [facility] WBC # BLD AUTO 11.3 High [facility] IMM GRANULOCYTES # BLD AUTO 0.21 High [facility] IMM GRANULOCYTES/[place] NFR BLD AUTO 1.9 % [facility] Specimen Type: BLOOD SPECIMEN Ordering Facility: [facility] Address: [address] [place] [address] Original Ordering Provider: DAVID CRUZ [facility] Comprehensive metabolic 2000 panelon 10-03-2024 Albumin [Mass/Vol] 2.5 g/dL Low 3.9 - 4.9 g/dL [facility] ALP [Catalytic activity/Vol] 188 U/L High 38 - 113 U/L [facility] ALT [Catalytic activity/Vol] 15 U/L 10 - 54 U/L [facility] Anion gap [Moles/Vol] 15 mmol/L 8 - 15 mmol/L [facility] AST [Catalytic activity/Vol] 17 U/L 14 - 40 U/L [facility] Bilirubin [Mass/Vol] 0.2 mg/dL 0.2 - 1 .3 mg/dL [facility] Calcium [Mass/Vol] 8 mg/dL Low 8.5 - 10. 2 mg/dL [facility] Chloride [Moles/Vol] 100 mmol/L 98 - 10 7 mmol/L [facility] CO2 [Moles/Vol] 17 mmol/L Low 22 - 30 mmol/L [facility] Creatinine [Mass/Vol] 1.01 mg/dL 0.73 - 1.22 mg/dL [facility] GFR/1.73 sq M.predicted among non-blacks MDRD (S/P/Bld) [Vol rate/Area] 80 mL/min/{1.73_m2} - PINF [facility] Comment on above: Estimated Glomerular Filtration Rate (eGFR) is calculated using the 2020 CKD-EPI creatinine equation. This equation utilizes serum creatinine, sex, and age as parameters. The creatinine assay has traceable calibration to isotope dilution-mass spectrometry. Refer to KDIGO guidelines for clinical interpretation. In patients with unstable renal function, e.g. those with acute kidney injury, the eGFR may not accurately reflect actual GFR. Glucose [Mass/Vol] 88 mg/dL 74 - 99 mg/dL [facility] Comment on above: The [place] Di[employer] [place] Association (ADA) provides guidance for cutoff values [...] Standards of Medical Care in Diabetes 2016, [place] [employer]. Diabetes Care. 2016.39(Suppl 1). Potassium [Moles/Vol] 4.7 mmol/L 3.7 - 5.1 mmol/L [facility] Protein [Mass/Vol] 4.7 g/dL Low 6.3 - 8.0 g/dL [facility] Sodium [Moles/Vol] 132 mmol/L Low 136 - 144 mmol/L [facility] Urea nitrogen [Mass/Vol] 9 mg/dL 9 - 24 mg/dL [facility] GGTon 10-03-2024 Gamma glutamyl transferase [Catalytic activity/Vol] 104 U/L High 10 - 70 U/L [facility] Gamma glutamyl transferase [ Catalytic activity/Vol]on 10-03-2024 Interpretation and review of laboratory results Abnormal [facility] Laboratory - Hematology and Cell countson 10-03-2024 Basophils/100 WBC (Bld) 0.3 % [facility] Eosinophils/100 WBC (Bld) 1.9 % [facility] Erythrocyte distribution width (RBC) [Ratio] 15.9 % High 11.5 - 15.0 % [facility] Hematocrit (Bld) [Volume fraction] 23.3 % Low 39.0 - 51.0 % [facility] Hemoglobin (Bld) [Mass/Vol] 7.6 g/dL Low 13.0 - 17.0 g/dL [facility] Lymphocytes/100 WBC (Bld) 2.1 % [facility] MCH (RBC) [Entitic mass] 31.7 pg 26.0 - 34.0 pg [facility] MCHC (RBC) [Mass/Vol] 32.6 g/dL 30.5 - 36.0 g/dL [facility] MCV (RBC) [Entitic vol] 97.1 fL 80.0 - 100.0 fL [facility] Monocytes/100 WBC (Bld) 12.1 % [facility] Neutrophils/100 WBC (Bld) 81.7 % [facility] RBC (Bld) [#/Vol] 2.4 10*6/uL Low 4.20 - 6.00 m/uL [facility] MAGNESIUMon 10-03-2024 Magnesium [Mass/Vol] 1.5 mg/dL Low 1.7 - 2 .3 mg/dL [facility] NT PRO BNPon 10-03-2024 Natriuretic peptide.B prohormone N-Terminal [Mass/Vol] 502 pg/mL High NINF - 125 pg/mL [facility] Natriuretic peptide.B prohor dilshad N-Terminal [Mass/Vol]on 10-03-2024 Interpretation and review of laboratory results Abnormal [facility] No Panel Informationon 10-03 Interpretation and review of laboratory results Abnormal [facility] Interpretation and review of laboratory results Abnormal [facility] TACROLIMUS/FK-506 BLOrdered By: Pascual Adler on 10-03-2024 Tacrolimus (Bld) [Mass/Vol] 4.9 ng/mL Low 5.0 - 20.0 ng/mL [facility] Comment on above: Individualized targe t levels for a given patient [...] situation. Test performed by chemiluminescent immunoassay using [employer] i. Tacrolimus (Bld) [Mass/Vol]O rdered By: Pascual Adler on 10-03-2024 Interpretation and review of laboratory results Abnormal [facility] CBC panel Auto (Bld)on 10-02 Nucleated RBC (Bld) [#/Vol] NINF [facility] Platelet mean volume (Bld) [Entitic vol] 9.1 fL 9.0 - 12.7 fL [facility] Platelets (Bld) [#/Vol] 466 10*3/uL High [facility] WBC (Bld) [#/Vol] 8.23 10*3/uL [facility] CBC PNL BLD AUTOon 10-02 CCF NRBC # BLD AUTO <0.01 NINF [facility] PLATELET # BLD AUTO 466 High [facility] PMV BLD AUTO 9.1 fL 9.0 - 12.7 fL [facility] WBC # BLD AUTO 8.23 [facility] Specimen Type: BLOOD SPECIMEN Ordering Facility: [facility] Address: [address] [place] [address] Original Ordering Provider: JONAS TEJADA FERRITINon 10-02-2024 Ferritin [Mass/Vol] 5605 ng/mL High 30.3 - 565.7 ng/mL [facility] FOLATE, SERUMon 10-02-2024 Folate [Mass/Vol] 12.4 ng/mL 4.7 - PINF ng/mL [facility] Ferritin [Mass/Vol]on 2024 Interpretation and review of laboratory results Abnormal [facility] Iron and Iron binding capaci ty panelon 10-02-2024 Interpretation and review of laboratory results Abnormal [facility] Iron [Mass/Vol] 16 ug/dL Low 41 - 186 ug/dL [facility] Iron binding capacity [Mass/Vol] 103 ug/dL Low 232 - 386 ug/dL [facility] Iron/TIBC [Molar ratio] 15.5 % Low 20.0 - 55.0 % [facility] Laboratory - Hematology and Cell countson 10-02-2024 Erythrocyte distribution width (RBC) [Ratio] 15.9 % High 11.5 - 15.0 % [facility] Hematocrit (Bld) [Volume fraction] 24.3 % Low 39.0 - 51.0 % [facility] Hemoglobin (Bld) [Mass/Vol] 7.8 g/dL Low 13.0 - 17.0 g/dL [facility] MCH (RBC) [Entitic mass] 30.8 pg 26.0 - 34.0 pg [facility] MCHC (RBC) [Mass/Vol] 32.1 g/dL 30.5 - 36.0 g/dL [facility] MCV (RBC) [Entitic vol] 96 fL 80.0 - 100.0 fL [facility] RBC (Bld) [#/Vol] 2.53 10*6/uL Low 4.20 - 6.00 m/uL [facility] No Panel Informationon 10-02 Interpretation and review of laboratory results Normal [facility] Interpretation and review of laboratory results Abnormal [facility] TACROLIMUS/FK-506 BLOrdered By: Milagros Sosa on 10-02-2024 Tacrolimus (Bld) [Mass/Vol] 6.5 ng/mL 5.0 - 20.0 ng/mL [facility] Comment on above: Individualized targe t levels for a given patient [...] situation. Test performed by chemiluminescent immunoassay using [employer]. Tacrolimus (Bld) [Mass/Vol]O rdered By: Milagros Sosa on 10-02-2024 Interpretation and review of laboratory results Normal [facility] VITAMIN B12on 10-02-2024 Cobalamin (Vitamin B12) [Mass/Vol] 655 pg/mL 232 - 1245 pg/mL [facility] C-REACTIVE PROTEINon 025 CRP [Mass/Vol] 15.5 mg/dL High NINF - 0.9 mg/dL [facility] CBC W Auto Differential pane l (Bld)on 10-01-2024 Basophils (Bld) [#/Vol] 0.05 10*3/uL [facility] Differential cell count method Nom (Bld) Auto [facility] Eosinophils (Bld) [#/Vol] 0.18 10*3/uL [facility] Immature granulocytes (Bld) [#/Vol] 0.05 10*3/uL [facility] Immature granulocytes/100 WBC (Bld) 0.7 % [facility] Lymphocytes (Bld) [#/Vol] 0.32 10*3/uL Low [facility] Monocytes (Bld) [#/Vol] 0.85 10*3/uL [facility] Neutrophils (Bld) [#/Vol] 6.06 10*3/uL [facility] Nucleated RBC (Bld) [#/Vol] [facility] Nucleated RBC/100 WBC (Bld) [Ratio] 0 % /100 WBC [facility] Platelet mean volume (Bld) [Entitic vol] 9.3 fL 9.0 - 12.7 fL [facility] Platelets (Bld) [#/Vol] 446 10*3/uL High [facility] WBC (Bld) [#/Vol] 7.51 10*3/uL [facility] CBC W AUTO DIFF BLDon [facility] BASOPHILS # BLD AUTO 0.05 [facility] DIFFERENTIAL METHOD BLD Auto [facility] EOSINOPHIL # BLD AUTO 0.18 [facility] LYMPHOCYTES # BLD AUTO 0.32 Low [facility] MONOCYTES # BLD AUTO 0.85 [facility] NEUTROPHILS # BLD AUTO 6.06 [facility] NRBC # BLD AUTO <0.01 [facility] NRBC/100 WBC BLD-RTO 0 /100 WBC [facility] PLATELET # BLD AUTO 446 High [facility] PMV BLD AUTO 9.3 fL 9.0 - 12.7 fL [facility] WBC # BLD AUTO 7.51 [facility] IMM GRANULOCYTES # BLD AUTO 0.05 [facility] IMM GRANULOCYTES/[place] NFR BLD AUTO 0.7 % [facility] Specimen Type: BLOOD SPECIMEN Ordering Facility: [facility] Address: [address] [place] [address] Original Ordering Provider: SUZE MATHEWSISYNC CRP [Mass/Vol]on 10-01-2024 Interpretation and review of laboratory results Abnormal [facility] ECG 12 leadon 10-01-2024 Ventricular Rate : 7 4 BPM Atrial Rate : 74 BPM P-R Interval : 156 ms QRS Duration : 98 ms Q-T Interval : 420 ms QTC Calculation(Bazett) : 466 ms Calculated P [place] : 39 degrees Calculated R [place] : 64 degrees Calculated T [place] : 33 degrees SINUS RHYTHM WITH PREMATURE ATRIAL COMPLEXES OTHERWISE NORMAL ECG Confirmed by LUKE BARNES MD ([id number]) on 10/01/2024 11:21:21 AM NAME : LOYD BLANDON PID : [id number] : 1955 Gender : Male Race : ORD : [id number] Procedure Date : Sep 08 2024 15:14:27 Edit Date : Oct 01 2024 11:21:25 Diagnosis: SINUS RHYTHM WITH PREMATURE ATRIAL COMPLEXES OTHERWISE NORMAL ECG Confirmed by LUKE BARNES MD ([id number]) on 10/01/2024 11:21:21 AM Test Reason : Pre-OP Location : 80 : G100 G100-5 Overread By : LUKE BARNES MD Edited By : LUKE BARNES MD Referred By : , Acquired by : TYLER BANERJEE [facility] Radiology, Radiologi MD - 10/01/2024 Ventricular Rate : 74 BPM Atrial Rate : 74 BPM P-R Interval : 156 ms QRS Duration : 98 ms Q-T Interval : 420 ms QTC Calculation(Bazett) : 466 ms Calculated P [place] : 39 degrees Calculated R [place] : 64 degrees Calculated T [place] : 33 degrees SINUS RHYTHM WITH PREMATURE ATRIAL COMPLEXES OTHERWISE NORMAL ECG Confirmed by LUKE BARNES MD ([id number]) on 10/01/2024 11:21:21 AM NAME : LOYD BLANDON PID : [id number] : 1955 Gender : Male Race : ORD : [id number] Procedure Date : Sep 08 2024 15:14:27 Edit Date : Oct 01 2024 11:21:25 Diagnosis: SINUS RHYTHM WITH PREMATURE ATRIAL COMPLEXES OTHERWISE NORMAL ECG Confirmed by LUKE BARNES MD ([id number]) on 10/01/2024 11:21:21 AM Test Reason : Pre-OP Location : 80 : G100 G100-5 Overread By : LUKE BARNES MD Edited By : LUKE BARNES MD Referred By : , Acquired by : TYLER BANERJEE [facility] Ventricular Rate : 6 7 BPM Atrial Rate : 67 BPM P-R Interval : 156 ms QRS Duration : 92 ms Q-T Interval : 426 ms QTC Calculation(Bazett) : 450 ms Calculated P [place] : 34 degrees Calculated R [place] : 93 degrees Calculated T [place] : 39 degrees NORMAL SINUS RHYTHM RIGHT AXIS LOW VOLTAGE QRS, CONSIDER PULMONARY DISEASE, PERICARDIAL EFFUSION, OR NORMAL VARIANT BORDERLINE ECG Confirmed by BRAYAN SANTOS MD ([id number]) on 10/01/2024 9:22:14 AM NAME : LOYD BLANDON PID : [id number] : 1955 Gender : Male Race : ORD : [id number] Procedure Date : Aug 27 2024 07:31:02 Edit Date : Oct 01 2024 09:22:15 Diagnosis: NORMAL SINUS RHYTHM RIGHT AXIS LOW VOLTAGE QRS, CONSIDER PULMONARY DISEASE, PERICARDIAL EFFUSION, OR NORMAL VARIANT BORDERLINE ECG Confirmed by BRAYAN SANTOS MD ([id number]) on 10/01/2024 9:22:14 AM Test Reason : Arrhythmia Location : 84 : H81 H081-29 Overread By : BRAYAN SANTOS MD Edited By : BRAYAN SANTOS MD Referred By : , Acquired by : ART HARRIS [facility] Radiology, Radiologi MD lorenzo - 10/01/2024 Ventricular Rate : 67 BPM Atrial Rate : 67 BPM P-R Interval : 156 ms QRS Duration : 92 ms Q-T Interval : 426 ms QTC Calculation(Bazett) : 450 ms Calculated P [place] : 34 degrees Calculated R [place] : 93 degrees Calculated T [place] : 39 degrees NORMAL SINUS RHYTHM RIGHT AXIS LOW VOLTAGE QRS, CONSIDER PULMONARY DISEASE, PERICARDIAL EFFUSION, OR NORMAL VARIANT BORDERLINE ECG Confirmed by BRAYAN SANTOS MD ([id number]) on 10/01/2024 9:22:14 AM NAME : LOYD BLANDON PID : [id number] : 1955 Gender : Male Race : ORD : [id number] Procedure Date : Aug 27 2024 07:31:02 Edit Date : Oct 01 2024 09:22:15 Diagnosis: NORMAL SINUS RHYTHM RIGHT AXIS LOW VOLTAGE QRS, CONSIDER PULMONARY DISEASE, PERICARDIAL EFFUSION, OR NORMAL VARIANT BORDERLINE ECG Confirmed by BRAYAN SANTOS MD ([id number]) on 10/01/2024 9:22:14 AM Test Reason : Arrhythmia Location : 84 : H81 H081-29 Overread By : BRAYAN SANTOS MD Edited By : BRAYAN SANTOS MD Referred By : , Acquired by : ART HARRIS [facility] ECG 12 leadOrdered By: Radio logist Radiology on 10-01-2024 [facility] Work Phone: [facility] Work Phone: Laboratory - Hematology and Cell countson 10-01-2024 Basophils/100 WBC (Bld) 0.7 % [facility] Eosinophils/100 WBC (Bld) 2.4 % [facility] Erythrocyte distribution width (RBC) [Ratio] 16 % High 11.5 - 15.0 % [facility] Hematocrit (Bld) [Volume fraction] 22.7 % Low 39.0 - 51.0 % [facility] Hemoglobin (Bld) [Mass/Vol] 7.4 g/dL Low 13.0 - 17.0 g/dL [facility] Lymphocytes/100 WBC (Bld) 4.3 % [facility] MCH (RBC) [Entitic mass] 31.2 pg 26.0 - 34.0 pg [facility] MCHC (RBC) [Mass/Vol] 32.6 g/dL 30.5 - 36.0 g/dL [facility] MCV (RBC) [Entitic vol] 95.8 fL 80.0 - 100.0 fL [facility] Monocytes/100 WBC (Bld) 11.3 % [facility] Neutrophils/100 WBC (Bld) 80.6 % [facility] RBC (Bld) [#/Vol] 2.37 10*6/uL Low 4.20 - 6.00 m/uL [facility] MAGNESIUMon 10-01-2024 Magnesium [Mass/Vol] 1.7 mg/dL 1.7 - 2 .3 mg/dL [facility] Magnesium [Mass/Vol]on 10-01 Interpretation and review of laboratory results Normal [facility] No Panel Informationon 10-01 [facility] Interpretation and review of laboratory results Abnormal [facility] C-REACTIVE PROTEINon 025 CRP [Mass/Vol] 17.7 mg/dL High NINF - 0.9 mg/dL [facility] CBC W Auto Differential pane l (Bld)on 09-30-2024 Basophils (Bld) [#/Vol] 0.06 10*3/uL [facility] Differential cell count method Nom (Bld) Auto [facility] Eosinophils (Bld) [#/Vol] 0.19 10*3/uL [facility] Immature granulocytes (Bld) [#/Vol] 0.08 10*3/uL [facility] Immature granulocytes/100 WBC (Bld) 1 % [facility] Lymphocytes (Bld) [#/Vol] 0.33 10*3/uL Low [facility] Monocytes (Bld) [#/Vol] 0.87 10*3/uL High [facility] Neutrophils (Bld) [#/Vol] 6.87 10*3/uL [facility] Nucleated RBC (Bld) [#/Vol] [facility] Nucleated RBC/100 WBC (Bld) [Ratio] 0 % /100 WBC [facility] Platelet mean volume (Bld) [Entitic vol] 9.3 fL 9.0 - 12.7 fL [facility] Platelets (Bld) [#/Vol] 470 10*3/uL High [facility] WBC (Bld) [#/Vol] 8.4 10*3/uL [facility] CBC W AUTO DIFF BLDon [facility] BASOPHILS # BLD AUTO 0.06 [facility] DIFFERENTIAL METHOD BLD Auto [facility] EOSINOPHIL # BLD AUTO 0.19 [facility] LYMPHOCYTES # BLD AUTO 0.33 Low [facility] MONOCYTES # BLD AUTO 0.87 High [facility] NEUTROPHILS # BLD AUTO 6.87 [facility] NRBC # BLD AUTO <0.01 [facility] NRBC/100 WBC BLD-RTO 0 /100 WBC [facility] PLATELET # BLD AUTO 470 High [facility] PMV BLD AUTO 9.3 fL 9.0 - 12.7 fL [facility] WBC # BLD AUTO 8.4 [facility] IMM GRANULOCYTES # BLD AUTO 0.08 [facility] IMM GRANULOCYTES/LEUK NFR BLD AUTO 1 % [facility] Specimen Type: BLOOD SPECIMEN Ordering Facility: [facility] Address: [address] [place] [id number] Original Ordering Provider: DAVID TEJADA CYTOMEGALOVIRUS (CMV) DNA, Q UANTITATIVE PCR, PLASMAon 09-30-2024 CMV DNA JESSICA+probe [#/Vol] [facility] CMV DNA JESSICA+probe [Log #/Vol] [facility] CMV DNA JESSICA+probe Qn (P) Detected Abnormal Not Detected [facility] Interpretation and review of laboratory results Abnormal [facility] sav CMV is an in v itro nucleic acid amplification test for the quantitation of cytomegalovirus (CMV) DNA in human EDTA plasma. The linear range of the assay is 34.5 to 10,000,000 IU/mL (1.54 - 7.00 log IU/mL). The lower limit of detection of the assay is 34.5 IU/mL. [facility] Comprehensive metabolic 2000 panelon 09-30-2024 Albumin [Mass/Vol] 2.4 g/dL Low 3.9 - 4.9 g/dL [facility] ALP [Catalytic activity/Vol] 115 U/L High 38 - 113 U/L [facility] ALT [Catalytic activity/Vol] 11 U/L 10 - 54 U/L [facility] Anion gap [Moles/Vol] 10 mmol/L 8 - 15 mmol/L [facility] AST [Catalytic activity/Vol] 11 U/L Low 14 - 40 U/L [facility] Bilirubin [Mass/Vol] 0.2 mg/dL 0.2 - 1 .3 mg/dL [facility] Calcium [Mass/Vol] 8.3 mg/dL Low 8.5 - 10. 2 mg/dL [facility] Chloride [Moles/Vol] 103 mmol/L 98 - 10 7 mmol/L [facility] CO2 [Moles/Vol] 22 mmol/L 22 - 30 mmol/L [facility] Creatinine [Mass/Vol] 0.88 mg/dL 0.73 - 1.22 mg/dL [facility] GFR/1.73 sq M.predicted among non-blacks MDRD (S/P/Bld) [Vol rate/Area] 92 mL/min/{1.73_m2} - PINF [facility] Comment on above: Estimated Glomerular Filtration Rate (eGFR) is calculated using the 2020 CKD-EPI creatinine equation. This equation utilizes serum creatinine, sex, and age as parameters. The creatinine assay has traceable calibration to isotope dilution-mass spectrometry. Refer to KDIGO guidelines for clinical interpretation. In patients with unstable renal function, e.g. those with acute kidney injury, the eGFR may not accurately reflect actual GFR. Glucose [Mass/Vol] 85 mg/dL 74 - 99 mg/dL [facility] Comment on above: The [place] Diab[employer] [place] Association (ADA) provides guidance for cutoff values [...] Standards of Medical Care in Diabetes 2016, [place] [employer]. Diabetes Care. 2016.39(Suppl 1). Potassium [Moles/Vol] 4.4 mmol/L 3.7 - 5.1 mmol/L [facility] Protein [Mass/Vol] 4.6 g/dL Low 6.3 - 8.0 g/dL [facility] Sodium [Moles/Vol] 135 mmol/L Low 136 - 144 mmol/L [facility] Urea nitrogen [Mass/Vol] 11 mg/dL 9 - 24 mg/dL [facility] ECG 12 leadon 09-30-2024 Ventricular Rate : 88 BPM Atrial Rate : 88 BPM P-R Interval : 118 ms QRS Duration : 86 ms Q-T Interval : 396 ms QTC Calculation(Bazett) : 479 ms Calculated P [place] : -11 degrees Calculated R [place] : 43 degrees Calculated [place] : 24 degrees SINUS RHYTHM WITH FREQUENT PREMATURE ATRIAL COMPLEXES IN A PATTERN OF BIGEMINY NONSPECIFIC ST ABNORMALITY ABNORMAL ECG Confirmed by IGNACIO PARDO MD ([id number]) on 09/30/2024 10:51:05 PM NAME : LOYD BLANDON PID : [id number] : 1955 Gender : Male Race : ORD : [id number] Procedure Date : Sep 01 2024 14:30:15 Edit Date : Sep 30 2024 22:51:07 Diagnosis: SINUS RHYTHM WITH FREQUENT PREMATURE ATRIAL COMPLEXES IN A PATTERN OF BIGEMINY NONSPECIFIC ST ABNORMALITY ABNORMAL ECG Confirmed by IGNACIO PARDO MD ([id number]) on 09/30/2024 10:51:05 PM Test Reason : BPX5 Location : 80 : G100 G1-34 Overread By : IGNACIO PARDO MD Edited By : IGNACIO PARDO MD Referred By : , Acquired by : RACHEL PEREZ [facility] Radiology, Radiologi MD lorenzo - 09/30/2024 Ventricular Rate : 88 BPM Atrial Rate : 88 BPM P-R Interval : 118 ms QRS Duration : 86 ms Q-T Interval : 396 ms QTC Calculation(Bazett) : 479 ms Calculated P [place] : -11 degrees Calculated R [place] : 43 degrees Calculated T [place] : 24 degrees SINUS RHYTHM WITH FREQUENT PREMATURE ATRIAL COMPLEXES IN A PATTERN OF BIGEMINY NONSPECIFIC ST ABNORMALITY ABNORMAL ECG Confirmed by IGNACIO PARDO MD ([id number]) on 09/30/2024 10:51:05 PM NAME : LOYD BLANDON PID : [id number] : 1955 Gender : Male Race : ORD : [id number] Procedure Date : Sep 01 2024 14:30:15 Edit Date : Sep 30 2024 22:51:07 Diagnosis: SINUS RHYTHM WITH FREQUENT PREMATURE ATRIAL COMPLEXES IN A PATTERN OF BIGEMINY NONSPECIFIC ST ABNORMALITY ABNORMAL ECG Confirmed by IGNACIO PARDO MD ([id number]) on 09/30/2024 10:51:05 PM Test Reason : BPX5 Location : 80 : G100 G134 Overread By : IGNACIO PARDO MD Edited By : IGNACIO PARDO MD Referred By : , Acquired by : RACHEL PEREZ [facility] ECG 12 leadOrdered By: Radio logist Radiology on 09-30-2024 [facility] Work Phone: ECG 12-LEADon 09-30-2024 Ventricular Rate : 6 8 BPM Atrial Rate : 68 BPM P-R Interval : 118 ms QRS Duration : 80 ms Q-T Interval : 392 ms QTC Calculation(Bazett) : 416 ms Calculated P [place] : 15 degrees Calculated R [place] : 16 degrees Calculated T [place] : 17 degrees NORMAL SINUS RHYTHM WITH SINUS ARRHYTHMIA Confirmed by NEGRO SLATER MD ([id number]) on 09/30/2024 9:46:56 PM NAME : LOYD BLANDON PID : [id number] : 1955 Gender : Male Race : ORD : [id number] Procedure Date : Sep 29 2024 17:07:01 Edit Date : Sep 30 2024 21:46:57 Diagnosis: NORMAL SINUS RHYTHM WITH SINUS ARRHYTHMIA Confirmed by NEGRO SLATER MD ([id number]) on 09/30/2024 9:46:56 PM Test Reason : Left chest pain - feels more like muscular pain, no radiation, started 3 days a Location : 519 : SMAV Overread By : NEGRO SLATER MD Edited By : NEGRO SLATER MD Referred By : , Acquired by : ALAN ISRAEL RN, [facility] Radiology, Radiologi MD - 09/30/2024 Ventricular Rate : 68 BPM Atrial Rate : 68 BPM P-R Interval : 118 ms QRS Duration : 80 ms Q-T Interval : 392 ms QTC Calculation(Bazett) : 416 ms Calculated P [place] : 15 degrees Calculated R [place] : 16 degrees Calculated T [place] : 17 degrees NORMAL SINUS RHYTHM WITH SINUS ARRHYTHMIA Confirmed by NEGRO SLATER MD ([id number]) on 09/30/2024 9:46:56 PM NAME : LOYD BLANDON PID : [id number] : 1955 Gender : Male Race : ORD : [id number] Procedure Date : Sep 29 2024 17:07:01 Edit Date : Sep 30 2024 21:46:57 Diagnosis: NORMAL SINUS RHYTHM WITH SINUS ARRHYTHMIA Confirmed by NEGRO SLATER MD ([id number]) on 09/30/2024 9:46:56 PM Test Reason : Left chest pain - feels more like muscular pain, no radiation, started 3 days a Location : 519 : SMAV Overread By : NEGRO SLATER MD Edited By : NEGRO SLATER MD Referred By : , Acquired by : ALAN ISRAEL RN, [facility] ECG 12-LEADOrdered By: Radio logist Radiology on 09-30-2024 [facility] Work Phone: ECG COMPLETEon 09-30-2024 Atrial Rate 71 BPM [facility] Calculated P [place] 6 degrees [facility] Calculated R [place] 19 degrees [facility] Calculated T [place] 23 degrees [facility] P-R Interval 128 ms [facility] QRS Duration 76 ms [facility] QT Interval 396 ms [facility] QTC Calculation (Bazett) 430 ms [facility] Ventricular Rate 71 BPM [facility] NORMAL SINUS RHYTHM LOW VOLTAGE QRS, CONSIDER PULMONARY DISEASE, PERICARDIAL EFFUSION, OR NORMAL VARIANT BORDERLINE ECG Confirmed by NEGRO SLATER MD ([id number]) on 09/30/2024 9:47:02 PM [facility] NAME : JAMIANATHANIELDebby Syed PID : [id number] : 1955 Gender : Male Race : ORD : Procedure Date : Sep 29 2024 17:07:42 Edit Date : Sep 30 2024 21:47:07 Diagnosis: NORMAL SINUS RHYTHM LOW VOLTAGE QRS, CONSIDER PULMONARY DISEASE, PERICARDIAL EFFUSION, OR NORMAL VARIANT BORDERLINE ECG Confirmed by NEGRO SLATER MD ([id number]) on 09/30/2024 9:47:02 PM Test Reason : Location : 519 : [facility] Overread By : NEGRO SLATER MD Edited By : NERGO SLATER MD Referred By : , Acquired by : ALAN ISRAEL RN, [facility] Atrial Rate 68 BPM [facility] Calculated P [place] 15 degrees [facility] Calculated R [place] 16 degrees [facility] Calculated T [place] 17 degrees [facility] P-R Interval 118 ms [facility] QRS Duration 80 ms [facility] QT Interval 392 ms [facility] QTC Calculation (Bazett) 416 ms [facility] Ventricular Rate 68 BPM [facility] NORMAL SINUS RHYTHM WITH SINUS ARRHYTHMIA Confirmed by NEGRO SLATER MD ([id number]) on 09/30/2024 9:46:56 PM [facility] NAME : JAMIANATHNAIELDebby Syed PID : [id number] : 1955 Gender : Male Race : ORD : [id number] Procedure Date : Sep 29 2024 17:07:01 Edit Date : Sep 30 2024 21:46:57 Diagnosis: NORMAL SINUS RHYTHM WITH SINUS ARRHYTHMIA Confirmed by NEGRO SLATER MD ([id number]) on 09/30/2024 9:46:56 PM Test Reason : Left chest pain - feels more like muscular pain, no radiation, started 3 days a Location : 519 : SMAV Overread By : NEGRO SLATER MD Edited By : NEGRO SLATER MD Referred By : , Acquired by : ALAN ISRAEL RN, [facility] [id number] 09-30-2024 Ventricular Rate : 7 1 BPM Atrial Rate : 71 BPM P-R Interval : 128 ms QRS Duration : 76 ms Q-T Interval : 396 ms QTC Calculation(Bazett) : 430 ms Calculated P [place] : 6 degrees Calculated R [place] : 19 degrees Calculated T [place] : 23 degrees NORMAL SINUS RHYTHM LOW VOLTAGE QRS, CONSIDER PULMONARY DISEASE, PERICARDIAL EFFUSION, OR NORMAL VARIANT BORDERLINE ECG Confirmed by NEGRO SLATER MD ([id number]) on 09/30/2024 9:47:02 PM NAME : LOYD BLANDON PID : [id number] : 1955 Gender : Male Race : ORD : Procedure Date : Sep 29 2024 17:07:42 Edit Date : Sep 30 2024 21:47:07 Diagnosis: NORMAL SINUS RHYTHM LOW VOLTAGE QRS, CONSIDER PULMONARY DISEASE, PERICARDIAL EFFUSION, OR NORMAL VARIANT BORDERLINE ECG Confirmed by NEGRO SLATER MD ([id number]) on 09/30/2024 9:47:02 PM Test Reason : Location : 519 : SMAV Overread By : NEGRO SLATER MD Edited By : NEGRO SLATER MD Referred By : , Acquired by : ALAN ISRAEL RN, [facility] Radiology, Radiologi MD - 09/30/2024 Ventricular Rate : 71 BPM Atrial Rate : 71 BPM P-R Interval : 128 ms QRS Duration : 76 ms Q-T Interval : 396 ms QTC Calculation(Bazett) : 430 ms Calculated P [place] : 6 degrees Calculated R [place] : 19 degrees Calculated T [place] : 23 degrees NORMAL SINUS RHYTHM LOW VOLTAGE QRS, CONSIDER PULMONARY DISEASE, PERICARDIAL EFFUSION, OR NORMAL VARIANT BORDERLINE ECG Confirmed by NEGRO SLATER MD ([id number]) on 09/30/2024 9:47:02 PM NAME : LOYD BLANDON PID : [id number] : 1955 Gender : Male Race : ORD : Procedure Date : Sep 29 2024 17:07:42 Edit Date : Sep 30 2024 21:47:07 Diagnosis: NORMAL SINUS RHYTHM LOW VOLTAGE QRS, CONSIDER PULMONARY DISEASE, PERICARDIAL EFFUSION, OR NORMAL VARIANT BORDERLINE ECG Confirmed by NEGRO SLATER MD ([id number]) on 09/30/2024 9:47:02 PM Test Reason : Location : 519 : SMAV Overread By : NEGRO SLATER MD Edited By : NEGRO SLATER MD Referred By : , Acquired by : ALAN ISRAEL RN, [facility] [id number] By: Radiologist Radiology on 09-30-2024 [facility] Work Phone: GGTon 09-30-2024 Gamma glutamyl transferase [Catalytic activity/Vol] 81 U/L High 10 - 70 U/L [facility] Gamma glutamyl transferase [ Catalytic activity/Vol]on 09-30-2024 Interpretation and review of laboratory results Abnormal [facility] Laboratory - Hematology and Cell countson 09-30-2024 Basophils/100 WBC (Bld) 0.7 % [facility] Eosinophils/100 WBC (Bld) 2.3 % [facility] Erythrocyte distribution width (RBC) [Ratio] 16.1 % High 11.5 - 15.0 % [facility] Hematocrit (Bld) [Volume fraction] 25.5 % Low 39.0 - 51.0 % [facility] Hemoglobin (Bld) [Mass/Vol] 8.1 g/dL Low 13.0 - 17.0 g/dL [facility] Lymphocytes/100 WBC (Bld) 3.9 % [facility] MCH (RBC) [Entitic mass] 31.2 pg 26.0 - 34.0 pg [facility] MCHC (RBC) [Mass/Vol] 31.8 g/dL 30.5 - 36.0 g/dL [facility] MCV (RBC) [Entitic vol] 98.1 fL 80.0 - 100.0 fL [facility] Monocytes/100 WBC (Bld) 10.4 % [facility] Neutrophils/100 WBC (Bld) 81.7 % [facility] RBC (Bld) [#/Vol] 2.6 10*6/uL Low 4.20 - 6.00 m/uL [facility] MAGNESIUMon 09-30-2024 Magnesium [Mass/Vol] 1.6 mg/dL Low 1.7 - 2 .3 mg/dL [facility] NT PRO BNPon 09-30-2024 Natriuretic peptide.B prohormone N-Terminal [Mass/Vol] 493 pg/mL High NINF - 125 pg/mL [facility] Natriuretic peptide.B prohor dilshad N-Terminal [Mass/Vol]on 09-30-2024 Interpretation and review of laboratory results Abnormal [facility] No Panel Informationon 09-30 Interpretation and review of laboratory results Abnormal [facility] Interpretation and review of laboratory results Abnormal [facility] TACROLIMUS/[id number] BLOrdered By: Julia Fabian on 09-30-2024 Tacrolimus (Bld) [Mass/Vol] 4.8 ng/mL Low 5.0 - 20.0 ng/mL [facility] Comment on above: Individualized targe t levels for a given patient [...] situation. Test performed by chemiluminescent immunoassay using Nonpareilnity i. Tacrolimus (Bld) [Mass/Vol]O rdered By: Julia Fabian on 09-30-2024 Interpretation and review of laboratory results Abnormal [facility] No Panel Informationon 09-29 Radiology Study observation (narrative) [facility] BACTERIA WND CULTon 09-15 [facility] BACTERIA WND CULT CULTURE, WOUND: No growth [facility] BACTERIA WND CULT GRAM STAIN: No organisms seen [facility] BACTERIA WND CULT No Polymorphonucle ar Leukocytes [facility] Original Ordering Provider: GAY OSORIO [facility] BACTERIA FLD CULTon [facility] BACTERIA FLD CULT CULTURE, BODY FLD: No growth [facility] BACTERIA FLD CULT GRAM STAIN: No organisms seen [facility] BACTERIA FLD CULT No Polymorphonucle ar Leukocytes [facility] BACTERIA FLD CULT Gram stain from primary specimen [facility]: [facility] BACTERIA SPEC ANAEROBE C ULTon 09-11-2024 [facility] BACTERIA SPEC ANAEROBE CULT CULTURE, ANAEROBE: Negative for anaerobes. [facility] Original Ordering Provider: KATHY VAUGHN [facility] FLUABV+SARS-COV-2+RSV PN L RESP JESSICA+PROBEon 09-08-2024 [facility] FLUABV+SARS-COV-2+RSV PNL RESP JESSICA+PROBE INFLUENZA A RNA: Not detected [facility] FLUABV+SARS-COV-2+RSV PNL RESP JESSICA+PROBE INFLUENZA B RNA: Not detected [facility] FLUABV+SARS-COV-2+RSV PNL RESP JESSICA+PROBE RESPIRATORY SYNCYTIAL VIRUS (RSV) RNA: Not detected [facility] Original Ordering Provider: ROSALBA SINGH [facility] TISS PATH BX REPORTon 2024 AP DISCLAIMER [facility] Comment on above: Laboratory Developed Test (LDT) Disclaimer: Performance characteristics of immunohistochemical, immunofluorescent, and chromogenic in-situ hybridization tests have been determined by the performing laboratory within [facility]'s [facility] Pathology and Laboratory Medicine Department ([facility], [facility], [facility], [facility], [facility], [facility], or [facility]) in a manner consistent with CLIA requirements. One or more of these tests may not have been cleared or approved by the FDA. RT-PLM is regulated under CLIA as qualified to perform high-complexity testing. These tests are used for clinical purposes. These should not be regarded as investigational or for research. Positive and negative controls stain appropriately. [facility] CASE REPORT [facility] Comment on above: Surgical Pathology R eport Case: [id number] Authorizing Provider: Thomas Martinez MD Collected: 09/02/2024 11:43 AM Ordering Location: [place] [address] Received: 09/02/2024 05:29 PM Pathologist: Cali Breen MD Specimen: Colon, Descending, Polyp, descending colon polyp; r/o adenoma [facility] FINAL DIAGNOSIS [facility] Comment on above: Descending colon gaby yp, biopsy: - Polypoid granulation tissue. - Separate fragment of colonic mucosa with no diagnostic abnormality. - Negative for dysplasia. JEL 09/03/2024 at 1311 EDT [facility] FINAL PERFORMING LAB [facility] Comment on above: Diagnostic interpret ation performed at: [facility], [address] [place] [address] CLIA# [id number] [employer] Dyeing Machine Operator: Nakul Grimm MD [facility] GROSS DESCRIPTION [facility] Comment on above: A. Colon, Descending , Polyp Received in formalin are two pieces of bazzi, soft tissue aggregating to 0.5 x 0.2 x 0.1 cm. Totally submitted in one cassette. Gross examination performed at [facility], [address] [place] [address] AMS September 02, 2024 9:30 PM Specimen Type: TISSU E SPECIMEN Ordering Facility: [facility] Address: [address] [place] [address] Original Ordering Provider: THOMAS MARTINEZ [facility] AP DISCLAIMER [facility] Comment on above: Laboratory Developed Test (LDT) Disclaimer: Performance characteristics of immunohistochemical, immunofluorescent, and chromogenic in-situ hybridization tests have been determined by the performing laboratory within [facility]'s [facility] Pathology and Laboratory Medicine Department ([facility], [facility], [facility], [facility], [facility], [facility], or [facility]) in a manner consistent with CLIA requirements. One or more of these tests may not have been cleared or approved by the FDA. RT-PLM is regulated under CLIA as qualified to perform high-complexity testing. These tests are used for clinical purposes. These should not be regarded as investigational or for research. Positive and negative controls stain appropriately. CC CASE REPORT [facility] Comment on above: Surgical Pathology R eport Case: [id number] Authorizing Provider: Giana Kingston MD Collected: 08/31/2024 09:11 AM Ordering Location: [place] [address] Received: 09/02/2024 01:36 PM Pathologist: Marlee Carranza MD Specimen: Colon, Transverse, Polyp, r/o adenoma [facility] FINAL DIAGNOSIS [facility] Comment on above: A. Transverse colon, polypectomy: - Tubular adenoma. at 1252 EDT F FINAL PERFORMING LAB [facility] Comment on above: Diagnostic interpret ation performed at: [facility], [address] [place] [address] CLIA# [id number] [employer] Machine Operator: Magali Jane MD [facility] GROSS DESCRIPTION [facility] Comment on above: A. Colon, Transverse , Polyp Received in formalin is one piece of bazzi, soft tissue measuring 0.4 x 0.3 x 0.1 cm. Totally submitted in one cassette. Gross examination performed at [facility], [facility] [place] [address] AMS September 02, 2024 4:28 PM Specimen Type: TISSU E SPECIMEN Ordering Facility: [facility] Address: [address] [place] [address] Original Ordering Provider: GIANA KINGSTON [facility] No Panel Informationon 08-28 [facility] BACTERIA BLD CULT CULTURE, BLOOD: No growth 5 days [facility] Original Ordering Provider: CALI IYER [facility] US PARACENTESIS (POC) DDI US E ONLYon 08-26-2024 [facility] 36on 08-20-2024 36 Approving, but needs appt for additional refills. Normal [facility] CBC (INCLUDES DIFF/PLT)on Basophils (Bld) [#/Vol] 0.043 10*3/uL Normal 0-200 [facility] Comment on above: Order Comment: FASTI NG:NO FASTING: NO Performed By: #### 6 399 #### [facility] [address], [address] [place], [place] [id number] Linen Manager: Roland Duggan MD Basophils/100 WBC (Bld) 0.7 % Normal [facility] Comment on above: Order Comment: FASTI NG:NO FASTING: NO Performed By: #### 6 399 #### [facility] [address], [address] [place] [address] Linen Manager: Roland Duggan MD Eosinophils (Bld) [#/Vol] 0.153 10*3/uL Normal 15-500 [facility] Comment on above: Order Comment: FASTI NG:NO FASTING: NO Performed By: #### 6 399 #### [facility] [place] [address] Linen Manager: Roland Duggan MD Eosinophils/100 WBC (Bld) 2.5 % Normal [facility] Comment on above: Order Comment: FASTI NG:NO FASTING: NO Performed By: #### 6 399 #### [facility] [place] [address] Linen Manager: Roland Duggan MD Erythrocyte distribution width (RBC) [Ratio] 13.9 % Normal 11.0-15.0 [facility] Comment on above: Order Comment: FASTI NG:NO FASTING: NO Performed By: #### 6 399 #### [facility] [place] [address] Linen Manager: Roland Duggan MD Hematocrit (Bld) [Volume fraction] 32.7 % Low 38.5-50.0 [facility] Comment on above: Order Comment: FASTI NG:NO FASTING: NO Performed By: #### 6 399 #### [facility] [place] [address] Linen Manager: Roland Duggan MD Hemoglobin (Bld) [Mass/Vol] 11.2 g/dL Low 13.2-17.1 [facility] Comment on above: Order Comment: FASTI NG:NO FASTING: NO Performed By: #### 6 399 #### [facility] [place] [address] Linen Manager: Roland Duggan MD Lymphocytes (Bld) [#/Vol] 0.342 10*3/uL Low 850-3900 [facility] Comment on above: Order Comment: FASTI NG:NO FASTING: NO Performed By: #### 6 399 #### [facility] [place] [address] Linen Manager: Roland Duggan MD Lymphocytes/100 WBC (Bld) 5.6 % Normal [facility] Comment on above: Order Comment: FASTI NG:NO FASTING: NO Performed By: #### 6 399 #### [facility] of [place] [address] Linen Manager: Roland Duggan MD MCH (RBC) [Entitic mass] 33.8 pg High 27.0-33.0 [facility] Comment on above: Order Comment: FASTI NG:NO FASTING: NO Performed By: #### 6 399 #### [facility] [place] [address] Linen Manager: Roland Duggan MD MCHC (RBC) [Mass/Vol] 34.3 g/dL Normal 32.0-36.[address] [facility] Comment on above: Order Comment: FASTI NG:NO FASTING: NO Result Comment: For adults, a slight decrease in the calculated MCHC value (in the range of 30 to 32 g/dL) is most likely not clinically significant; however, it should be interpreted with caution in correlation with other red cell parameters and the patient's clinical condition. Performed By: #### 6 399 #### [facility] [place] [address] Linen Manager: Roland Duggan MD MCV (RBC) [Entitic vol] 98.8 fL Normal 80.0-100.0 [facility] Comment on above: Order Comment: FASTI NG:NO FASTING: NO Performed By: #### 6 399 #### [facility] [place] [address] Linen Manager: Roland Duggan MD Monocytes (Bld) [#/Vol] 0.885 10*3/uL Normal 200-950 [facility] Comment on above: Order Comment: FASTI NG:NO FASTING: NO Performed By: #### 6 399 #### [facility] [place] [address] Linen Manager: Roland Duggan MD Monocytes/100 WBC (Bld) 14.5 % Normal [facility] Comment on above: Order Comment: FASTI NG:NO FASTING: NO Performed By: #### 6 399 #### [facility] [place] [address] Linen Manager: Roland Duggan MD Neutrophils (Bld) [#/Vol] 4.679 10*3/uL Normal 1127-5028 [facility] Comment on above: Order Comment: FASTI NG:NO FASTING: NO Performed By: #### 6 399 #### [facility] of [address], [address] [place] [address] Linen Manager: Roland Duggan MD Neutrophils/100 WBC (Bld) 76.7 % Normal [facility] Comment on above: Order Comment: FASTI NG:NO FASTING: NO Performed By: #### 6 399 #### [facility] [address], [address] [place] [address] Linen Manager: Roland Duggan MD Platelet mean volume (Bld) [Entitic vol] 10.1 fL Normal 7.5-12.5 [facility] Comment on above: Order Comment: FASTI NG:NO FASTING: NO Performed By: #### 6 399 #### [facility] [address], [address] [place] [address] Linen Manager: Roland Duggan MD Platelets (Bld) [#/Vol] 147 10*3/uL Normal 140-400 [facility] Comment on above: Order Comment: FASTI NG:NO FASTING: NO Performed By: #### 6 399 #### [facility] [place] [address] Linen Manager: Roland Duggan MD RBC (Bld) [#/Vol] 3.31 10*6/uL Low 4.20-5.80 [facility] Comment on above: Order Comment: FASTI NG:NO FASTING: NO Performed By: #### 6 399 #### [facility] of [place] [address] Linen Manager: Roland Duggan MD WBC (Bld) [#/Vol] 6.1 10*3/uL Normal 3.8-10.8 [facility] Comment on above: Order Comment: FASTI NG:NO FASTING: NO Performed By: #### 6 399 #### [facility] of [place] [address] [place] [address] Linen Manager: Roland Duggan MD CT BIOPSY VERTEBRA OR FEMURo n 08-06-2024 * * *Final Report* * * DATE OF EXAM: Aug 06 2024 12:35PM [facility] [place]SY VERTEBRA OR FEMUR / PROCEDURE REASON: C22.0-Hepatocellular carcinoma (HCC) * * * * Physician Interpretation * * * * CT GUIDED RIGHT T10 LESION BIOPSY. INDICATION: The patient is a 69 years year old Male who presented with Hepatocellular carcinoma (HCC) . CONSENT: The risks, benefits, treatment options, potential complications and personnel to be involved were discussed (including the instruments to be used, contrast and anesthesia administration) with the patient. All questions were answered and consent was obtained. The patient indicated willingness to proceed. GENERAL: a) Medication Reconciliation: The patient's medications and allergies were reviewed in the electronic medical record and reconciled to the proposed procedure/treatment. Pre-procedure Sign-in: Safety Checklist Performed Yes b) Positioning: The patient was placed supine on the table. c) The area was then sterilely prepped and draped. d) Time Out: A time out was performed immediately prior to procedure start with the nursing, anesthesia and interventional team, correctly identifying the patient name, date of , procedure, anatomy (including marking of site and side), patient position, procedure consent form, relevant diagnostic and radiology test results, antibiotic administration, safety precautions, and procedure-specific equipment needs. Time Out Time: 12:01 ANESTHESIA: a) Local anesthesia: 8 mL 2% Lidocaine b) Anesthesia Type: Induction of moderate procedural sedation. c) Anesthesia Start Time: 12:04 d) Anesthesia Medications: 50 mcg Fentanyl; 1 mg Midazolam; e) Intra-service time (starts with administration of agent, ends when continuous head-vk-ozlw time ends): 26 minutes. f) Patient monitoring:I personally supervised and directed an independent trained observer who assisted in monitoring the patient?s level of consciousness and physiological status throughout the procedure. LOCALIZATION: Counting reference: Lumbosacral junction. For the purposes of this report, L4-5 is considered the level of the iliac crest and assume there are 5 lumbar-type vertebrae. Anatomic variant: None. . The target was visible on CT. PROCEDURE: a) Procedure Details: The area was marked, prepped, and draped. After local anesthesia, and under intermittent CT guidance, an 11-gauge on control needle was advanced through the right pedicle of T10. A single core biopsy was placed in formalin. All needles were removed. Images were stored. b) Devices used: Biopsy Needle: 11 Gauge On Control c) Estimated Blood Loss: 0 mL d) Number and Type of Removed Specimens: A single core placed in formalin CONTRAST CT imaging was performed without contrast. RADIATION DOSE a) Image guidance: CT guidance b) Radiation: CT Radiation dose: Integrated Dose-length product (DLP) for this visit = 579 mGy*cm. CT Dose Reduction Employed: mAs-kVp adjusted based on patient size-age POST PROCEDURE: a) Hemostasis: Hemostasis was achieved using light manual compression. b) Sign-out: Communication Performed N/A c) Procedure End Time: 12:30 d) Conclusion: The patient was transferred to the biopsy recovery room in stable condition. COMPLICATIONS: a) Significant Patient Complication: None b) Complications during the procedure: None RESULTS: Technically successful CT-guided bone lesion biopsy. IMPRESSION: SUCCESSFUL CT GUIDED T10 BONE LESION BIOPSY DESCRIBED. Attending Radiologist: Dr. Troy Franz MD House Supervisor: Jeovany Li MD The procedure was performed by the the treasury assistant, and the attending radiologist personally supervised the entire procedure. 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: [facility] Transcribe Date/Time: Aug 06 2024 12:41P Dictated by : JEOVANY LI MD This examination was interpreted and the report reviewed and electronically signed by: TROY FRANZ MD on Aug 06 2024 1:10PM EST [id number]^[email or web address]^ACN [facility] Radiology, Radiologi MD lorenzo - 08/06/2024 * * *Final Report* * * DATE OF EXAM: Aug 06 2024 12:35PM [facility] [place] BIOPSY VERTEBRA OR FEMUR / PROCEDURE REASON: C22.0-Hepatocellular carcinoma (HCC) * * * * Physician Interpretation * * * * CT GUIDED RIGHT T10 LESION BIOPSY. INDICATION: The patient is a 69 years year old Male who presented with Hepatocellular carcinoma (HCC) . CONSENT: The risks, benefits, treatment options, potential complications and personnel to be involved were discussed (including the instruments to be used, contrast and anesthesia administration) with the patient. All questions were answered and consent was obtained. The patient indicated willingness to proceed. GENERAL: a) Medication Reconciliation: The patient's medications and allergies were reviewed in the electronic medical record and reconciled to the proposed procedure/treatment. Pre-procedure Sign-in: Safety Checklist Performed Yes b) Positioning: The patient was placed supine on the table. c) The area was then sterilely prepped and draped. d) Time Out: A time out was performed immediately prior to procedure start with the nursing, anesthesia and interventional team, correctly identifying the patient name, date of , procedure, anatomy (including marking of site and side), patient position, procedure consent form, relevant diagnostic and radiology test results, antibiotic administration, safety precautions, and procedure-specific equipment needs. Time Out Time: 12:01 ANESTHESIA: a) Local anesthesia: 8 mL 2% Lidocaine b) Anesthesia Type: Induction of moderate procedural sedation. c) Anesthesia Start Time: 12:04 d) Anesthesia Medications: 50 mcg Fentanyl; 1 mg Midazolam; e) Intra-service time (starts with administration of agent, ends when continuous drqx-qb-ydnh time ends): 26 minutes. f) Patient monitoring:I personally supervised and directed an independent trained observer who assisted in monitoring the patient?s level of consciousness and physiological status throughout the procedure. LOCALIZATION: Counting reference: Lumbosacral junction. For the purposes of this report, L4-5 is considered the level of the iliac crest and assume there are 5 lumbar-type vertebrae. Anatomic variant: None. . The target was visible on CT. PROCEDURE: a) Procedure Details: The area was marked, prepped, and draped. After local anesthesia, and under intermittent CT guidance, an 11-gauge on control needle was advanced through the right pedicle of T10. A single core biopsy was placed in formalin. All needles were removed. Images were stored. b) Devices used: Biopsy Needle: 11 Gauge On Control c) Estimated Blood Loss: 0 mL d) Number and Type of Removed Specimens: A single core placed in formalin CONTRAST CT imaging was performed without contrast. RADIATION DOSE a) Image guidance: CT guidance b) Radiation: CT Radiation dose: Integrated Dose-length product (DLP) for this visit = 579 mGy*cm. CT Dose Reduction Employed: mAs-kVp adjusted based on patient size-age POST PROCEDURE: a) Hemostasis: Hemostasis was achieved using light manual compression. b) Sign-out: Communication Performed N/A c) Procedure End Time: 12:30 d) Conclusion: The patient was transferred to the biopsy recovery room in stable condition. COMPLICATIONS: a) Significant Patient Complication: None b) Complications during the procedure: None RESULTS: Technically successful CT-guided bone lesion biopsy. IMPRESSION: SUCCESSFUL CT GUIDED T10 BONE LESION BIOPSY DESCRIBED. Attending Radiologist: Dr. Troy Franz MD House Supervisor: Jeovany Li MD The procedure was performed by the the treasury assistant, and the attending radiologist personally supervised the entire procedure. 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: [facility] Transcribe Date/Time: Aug 06 2024 12:41P Dictated by : JEOVANY LI MD This examination was interpreted and the report reviewed and electronically signed by: TROY FRANZ MD on Aug 06 2024 1:10PM EST [id number]^ACN [facility] Radiology Study observation (narrative) [facility] CT BIOPSY VERTEBRA OR FEMURO rdered By: Radiologist Radiology on 08-06-2024 [facility] Work Phone: [facility] CMP (CMP) (FOR REMOTE FH C USE)on 08-05-2024 Albumin [Mass/Vol] 2.4 g/dL Low 3.4 - 5.0 g/dL [facility] ALBUMIN GLOBULIN RATIO 0.5 NO [facility] ALP [Catalytic activity/Vol] 149 U/L High 46 - 116 U/L [facility] ALT [Catalytic activity/Vol] 31 U/L 16 - 63 U/L [facility] Anion gap [Moles/Vol] 13.3 mmol/L NO [facility] AST [Catalytic activity/Vol] 54 U/L High 15 - 37 U/L [facility] Bilirubin [Mass/Vol] 1.5 mg/dL High 0.2 - 1 .0 mg/dL [facility] Calcium [Mass/Vol] 8.4 mg/dL Low 8.5 - 10. 1 mg/dL [facility] Chloride [Moles/Vol] 97 mmol/L Low 98 - 10 7 mmol/L [facility] CO2 [Moles/Vol] 24.5 mmol/L 21.0 - 32.0 mmol/L [facility] Creatinine [Mass/Vol] 1.33 mg/dL High 0.70 - 1.30 mg/dL [facility] GFR/1.73 sq M.predicted CKD-EPI (S/P/Bld) [Vol rate/Area] >60 >=60 mL/min/1.7 3m 2 [facility] Globulin (S) [Mass/Vol] 4.4 g/dL [facility] Glucose [Mass/Vol] 225 mg/dL High 74 - 106 mg/dL [facility] Interpretation and review of laboratory results Abnormal [facility] Potassium [Moles/Vol] 4.8 mmol/L 3.5 - 5.1 mmol/L [facility] Protein [Mass/Vol] 6.8 g/dL 6.4 - 8.2 g/dL [facility] Sodium [Moles/Vol] 130 mmol/L Low 136 - 145 mmol/L [facility] TBH EGFR-NON AF SRI LANKAN 53 Low >=60 mL/min/1.7 3m 2 [facility] Urea nitrogen [Mass/Vol] 17 mg/dL 7.0 - 18.0 mg/dL [facility] Urea nitrogen/Creatinine [Mass ratio] 12.8 mg/mg [facility] CMP (CMP) (FOR REMOTE FH C USE)on 07-31-2024 Albumin [Mass/Vol] 2.6 g/dL Low 3.4 - 5.0 g/dL [facility] ALBUMIN GLOBULIN RATIO 0.6 NO [facility] ALP [Catalytic activity/Vol] 143 U/L High 46 - 116 U/L [facility] ALT [Catalytic activity/Vol] 35 U/L 16 - 63 U/L [facility] Anion gap [Moles/Vol] 12.3 mmol/L NO [facility] AST [Catalytic activity/Vol] 56 U/L High 15 - 37 U/L [facility] Bilirubin [Mass/Vol] 1.4 mg/dL High 0.2 - 1 .0 mg/dL [facility] Calcium [Mass/Vol] 9 mg/dL 8.5 - 10. 1 mg/dL [facility] Chloride [Moles/Vol] 97 mmol/L Low 98 - 10 7 mmol/L [facility] CO2 [Moles/Vol] 27.7 mmol/L 21.0 - 32.0 mmol/L [facility] Creatinine [Mass/Vol] 1.93 mg/dL High 0.70 - 1.30 mg/dL [facility] GFR/1.73 sq M.predicted CKD-EPI (S/P/Bld) [Vol rate/Area] 42 Low >=60 mL/min/1.7 3m 2 [facility] Globulin (S) [Mass/Vol] 4.7 g/dL [facility] Glucose [Mass/Vol] 164 mg/dL High 74 - 106 mg/dL [facility] Interpretation and review of laboratory results Abnormal [facility] Potassium [Moles/Vol] 5 mmol/L 3.5 - 5.1 mmol/L [facility] Protein [Mass/Vol] 7.3 g/dL 6.4 - 8.2 g/dL [facility] Sodium [Moles/Vol] 132 mmol/L Low 136 - 145 mmol/L [facility] TBH EGFR-NON AF SRI LANKAN 35 Low >=60 mL/min/1.7 3m 2 [facility] Urea nitrogen [Mass/Vol] 23 mg/dL High 7.0 - 18.0 mg/dL [facility] Urea nitrogen/Creatinine [Mass ratio] 11.9 mg/mg [facility] US paracentesis abd w/imageo n 07-30-2024 US paracentesis abd w/image [facility] [address] Ultrasound Report Signed Patient: Loyd Blandon MR#: [id number] 66 : 1955 Acct:[id number] Age/Sex: 68 / M ADM Date: 07/30/24 Loc: Room: Type: [facility] Attending Dr: Irena Johnson MD Ordering Provider: Irena Johnson MD Date of Service: 07/30/24 US/US paracentesis abd w/image: K70.31 Copies to: Irena Johnson MD ULTRASOUND-GUIDED PARACENTESIS HISTORY: Abdominal distention. FINDINGS: Anechoic free intraperitoneal fluid identified. TECHNIQUE: Informed consent was obtained. The skin entry site was prepped and draped in sterile fashion with local lidocaine administered. 5 [place] centesis catheter was administered into the deepest fluid collection with ultrasound guidance. Return of fluid confirms adequate localization. 4.45L of straw-colored clear fluid withdrawn. The patient expressed no immediate complications and was discharged in satisfactory condition. US/US paracentesis abd w/image IMPRESSION: SUCCESSFUL ULTRASOUND-GUIDED PARACENTESIS. Impression dictated by: Albin Villela M.D.07/30/2024 1:21 PM Dictation Location: [place] [address] Tech: Ana So Transcribed By: ROLAND 07/30/24 1321 Dictated By: Albin Villela DO 07/30/24 1315 Signed By: 07/30/24 1321 Normal [facility] 36on 07-23-2024 36 Approving, but needs appt for additional refills. Normal [facility] CMP (CMP) (FOR REMOTE FH C USE)on 07-13-2024 Albumin [Mass/Vol] 2.5 g/dL Low 3.4 - 5.0 g/dL [facility] ALBUMIN GLOBULIN RATIO 0.6 NO [facility] ALP [Catalytic activity/Vol] 125 U/L High 46 - 116 U/L [facility] ALT [Catalytic activity/Vol] 32 U/L 16 - 63 U/L [facility] Anion gap [Moles/Vol] 12.3 mmol/L NO [facility] AST [Catalytic activity/Vol] 46 U/L High 15 - 37 U/L [facility] Bilirubin [Mass/Vol] 1.9 mg/dL High 0.2 - 1 .0 mg/dL [facility] Calcium [Mass/Vol] 8.7 mg/dL 8.5 - 10. 1 mg/dL [facility] Chloride [Moles/Vol] 100 mmol/L 98 - 10 7 mmol/L [facility] CO2 [Moles/Vol] 25.5 mmol/L 21.0 - 32.0 mmol/L [facility] Creatinine [Mass/Vol] 1.45 mg/dL High 0.70 - 1.30 mg/dL [facility] GFR/1.73 sq M.predicted CKD-EPI (S/P/Bld) [Vol rate/Area] 58 Low >=60 mL/min/1.7 3m 2 [facility] Globulin (S) [Mass/Vol] 4.3 g/dL [facility] Glucose [Mass/Vol] 102 mg/dL 74 - 106 mg/dL [facility] Interpretation and review of laboratory results Abnormal [facility] Potassium [Moles/Vol] 4.8 mmol/L 3.5 - 5.1 mmol/L [facility] Protein [Mass/Vol] 6.8 g/dL 6.4 - 8.2 g/dL [facility] Sodium [Moles/Vol] 133 mmol/L Low 136 - 145 mmol/L [facility] TBH EGFR-NON AF SRI LANKAN 48 Low >=60 mL/min/1.7 3m 2 [facility] Urea nitrogen [Mass/Vol] 23 mg/dL High 7.0 - 18.0 mg/dL [facility] Urea nitrogen/Creatinine [Mass ratio] 15.9 mg/mg [facility] BODY FLUID CELL COUNTOrdered By: Vonnie Parada on 07-05-2024 Clarity (Unsp spec) Clear Clear [facility] Clarity (Unsp spec) Not Indicated [facility] Color (Body fld) Yellow Yellow [facility] Color (Body fld) Not Indicated Yellow [facility] RBC Manual cnt (Body fld) [#/Vol] /uL NINF - 2000 /uL [facility] Specimen source Nom (Body fld) Ascites Fluid [facility] WBC Manual cnt (Body fld) [#/Vol] 71 /uL NINF - 1000 /uL [facility] Guidance for paracentesis an d insertion of tube of PeritoneumOrdered By: Elsy Johnson on 07-05-2024 [facility] Work Phone: Radiology Study observation (narrative) [facility] Work Phone: MANUAL DIFFERENTIAL, BODY FL UIDOrdered By: Billie Wilson on 07-05-2024 Diff Total Body Fluid 100 cells counted [facility] Interpretation and review of laboratory results Abnormal [facility] Lymph%, BF 72 % High 18 - 36 % [facility] Macro%, BF 11 % Low 64 - 80 % [facility] Meso%, BF 1 % 0 - 2 % [facility] [place]%, BF 11 % [facility] Neut%, BF 5 % High 0 - 1 % [facility] US PARACENTESIS (POC) DDI US E ONLYon 07-05-2024 [facility] 36on 06-25-2024 36 Approving, but needs appt for additional refills. Normal [facility] Coagulation Profileon 2024 aPTT Coag (Bld) [Time] 32.0 s Normal 25.1-36.5 Th e [facility] Comment on above: Order Comment: STAT FOR PARA Result Comment: A he matocrit value greater than 55% may lead to inaccurate results in coagulation testing. Patients having hematocrit values >55% require a special collection tube for coagulation studies. Please contact the laboratory at [phone] for redraw instructions. PERFORMED BY: [place] [address] PATHOLOGIST ELECTRONIC LAB TECHNICIAN JEAN BEAN M.D. Performed By: #### P P, PLT #### [address] INR Coag (PPP) [Relative time] 1.2 {INR} Normal [facility] Comment on above: Order Comment: STAT FOR PARA Result Comment: INR Therapeutic Range A) Pre- [...] with mechanical heart valves: 3 - 4.5 Performed By: #### P P, PLT #### [address] PT Coag (PPP) [Time] 13.6 s High 9.0-12.9 [facility] Comment on above: Order Comment: STAT FOR PARA Result Comment: A he matocrit value greater than 55% may lead to inaccurate results in coagulation testing. Patients having hematocrit values >55% require a special collection tube for coagulation studies. Please contact the laboratory at [phone] for redraw instructions. Performed By: #### P P, PLT #### [place] [address] [place] INR in Platelet poor plasma by Coagulation assayOrdered By: Irena Johnson on 06-19-2024 INR Coag (PPP) [Relative time] INR in Platelet poor plasma by Coagulation assay [facility] Comment on above: INR Therapeutic Rang e A) Pre- and Peroperative OAT started two weeks before surgery. NOT HIP SURGERY: 1.5 - 2.5 HIP SURGERY: 2 - 3B) Primary and secondary prevention of venous THROMBOSIS: 2 - 3C) Active venous thrombosis, pulmonary embolismand prevention of recurrent venous thrombosis: 2 - 3D) Prevention of arterial thromboembolismincluding patients with mechanical heart valves: 3 - 4.5 Platelet Counton 06-19-2024 Platelets (Bld) [#/Vol] 124 10*3/uL Low 150-450 [facility] Comment on above: Order Comment: STAT FOR PARA Result Comment: PERF ORMED BY: [place] [address] PATHOLOGIST ELECTRONIC LAB TECHNICIAN JEAN BEAN M.D. Performed By: #### P P, PLT #### [address] Platelets Auto (Bld) [#/Vol] Ordered By: Irena Johnson on 06-19-2024 Platelets (Bld) [#/Vol] Platelets [#/volume] in Blood by Automated count Low 150-450 [facility] Prothrombin time (PT)Ordered By: Irena Johnson on 06-19-2024 PT Coag (PPP) [Time] Prothrombin time (PT) High 9.0- 12.9 [facility] Comment on above: A hematocrit value g reater than 55% may lead to inaccurate results in coagulation testing. Patients having hematocrit values >55% require a special collection tube for coagulation studies. Please contact the laboratory at [phone] for redraw instructions. US paracentesis abd w/imageo n 06-19-2024 US paracentesis abd w/image [facility] [place] [address] [place] [address] Ultrasound Report Signed Patient: Loyd Blandon MR#: [id number] 66 : 1955 Acct:[id number] Age/Sex: 68 / M ADM Date: 06/19/24 Loc: UL Room: Type: [facility] Attending Dr: Irena Johnson MD Ordering Provider: Irena Johnson MD Date of Service: 06/19/24 US/US paracentesis abd w/image: K30.31 Copies to: Irena Johnson MD ULTRASOUND-GUIDED PARACENTESIS CLINICAL DATA: Ascites The procedure was discussed with the patient and consent was obtained. Ultrasound survey of the abdomen and pelvis was performed and moderate amount of ascites was identified. The right lower quadrant was chosen as the site for aspiration. Following sterile preparation and local anesthesia with lidocaine, a 5 Eritre[place] centesis catheter was advanced into the peritoneal cavity. Approximately 4700 mL of ascites was drained. The catheter was removed. There were no immediate complications. US/US paracentesis abd w/image IMPRESSION: SUCCESSFUL ULTRASOUND-GUIDED PARACENTESIS. Impression dictated by: Morales Alvarez Jr., D.OAshley06/19/2024 3:34 PM Dictation Location: [place] [address] Tech: Blanca Nicolas Transcribed By: ROLAND 06/19/241533 Dictated By: Morales Alvarez Jr, DO 06/19/241533 Signed By: 06/19/241533 Normal [facility] aPTT in Platelet poor plasma by Coagulation assayOrdered By: Irena Johnson on 06-19-2024 aPTT Coag (PPP) [Time] Activated partial thromboplastin time (aPTT) in platelet poor plasma by coagulation a 25.1-36.5 [facility] Comment on above: A hematocrit value g reater than 55% may lead to inaccurate results in coagulation testing. Patients having hematocrit values >55% require a special collection tube for coagulation studies. Please contact the laboratory at [phone] for redraw instructions. ALL CBC WITH AUTO DIFFon Erythrocyte distribution width (RBC) [Ratio] 14.6 % 11.0 - 15.0 % [facility] Hematocrit (Bld) [Volume fraction] 34.7 % Low 42.0 - 54.0 % [facility] Hemoglobin (Bld) [Mass/Vol] 11.8 g/dL Low 14.0 - 18.0 g/dL [facility] Interpretation and review of laboratory results Abnormal [facility] MCH (RBC) [Entitic mass] 34.1 pg High 25.9 - 34.0 pg [facility] MCHC (RBC) [Mass/Vol] 34 g/dL 29.9 - 35.2 g/dL [facility] MCV (RBC) [Entitic vol] 100.3 fL High 80.0 - 94.0 fL [facility] Platelet mean volume (Bld) [Entitic vol] 10.8 fL 9.5 - 13.5 fL [facility] TB PLT 131 Low [facility] RBC 3.46 Low [facility] WBC 4.3 [facility] MR Cervical spine WO and W c ontrast Syed 06-08-2024 * * *Final Report* * * DATE OF EXAM: Jun 08 2024 2:06PM Q 0298 - MRI CERVICAL SPINE WO/W IVCON / PROCEDURE REASON: Low back pain, unspecified back pain laterality, unspecified chronicity, unspeci * * * * Physician Interpretation * * * * EXAMINATION: MRI CERVICAL SPINE WO/W IVCON, MRI LUMBAR SPINE WO/W IVCON, MRI THORACIC SPINE WO/W IVCON CLINICAL HISTORY: Low back pain, unspecified back pain laterality, unspecified chronicity, unspecified whether sciatica present. TECHNIQUE: Routine cervical, thoracic, and lumbosacral spine MR protocol without and with intravenous gadolinium. MQ: MRCTLWO_3 Contrast: IV administration of 16 ml of Dotarem COMPARISON: Ultrasound pelvis 2024 and chest radiograph 2024. RESULT: Motion artifact is noted on the examination. CERVICAL: Counting reference: Craniocervical junction. Anatomic Variants: None. Localizer images: No additional findings. Alignment: Alignment is anatomic. Craniocervical junction: Craniocervical junction is normal. Cord: No definite signal abnormality of the cervical spinal cord within limitations from motion artifact. Bone marrow signal/fracture: No evidence of pathologic marrow infiltration. No evidence of prior fracture. Cervical soft tissues: The paraspinal soft tissues are within normal limits. Canal and foramina: No significant cervical canal or foraminal stenosis within the constraints of the study. Minor disc bulges are seen from C2 to C7 but do not cause any significant narrowing of the spinal canal. The neural foramina are not well evaluated due to motion artifact. At the C3-C4 level there does appear to be moderate left neural foraminal narrowing. THORACIC: Counting reference: Craniocervical and lumbosacral junctions. For the purposes of this report, L4-5 is considered the level of the iliac crest and assume there are 5 lumbar-type vertebrae. Anatomic variant: None. Localizer images: Large right pleural effusion and large volume abdominopelvic ascites. Alignment: Mildly accentuated thoracic kyphosis. Cord: Evaluation of cord signal is limited due to motion artifact. Bone marrow signal/fracture: Evaluation of marrow signal is limited due to artifact. There are areas of low T1 marrow signal within the T10 and T12 vertebral bodies that appear to 6 demonstrates STIR hyperintensity. Mild chronic superior endplate compression fracture of the T7 and T8 vertebral bodies. Mild chronic superior endplate height loss of T5. Thoracic soft tissues: The paraspinal soft tissues are within normal limits. Canal and foramina: No significant thoracic canal or foraminal stenosis within the constraints of the study. LUMBAR: Counting reference: Craniocervical and lumbosacral junctions. For the purposes of this report, L4-5 is considered the level of the iliac crest and assume there are 5 lumbar-type vertebrae. Anatomic variant: None. Localizer images: Large right-sided pleural effusion and large volume abdominopelvic ascites. Alignment: Alignment is anatomic. Bone marrow signal/fracture: There is heterogenous marrow signal within the lumbar spine. No evidence of prior fracture. Conus: Evaluation of cord signal is limited due to artifact. Paraspinal soft tissues: Paraspinal soft tissues are within normal limits. Canal and foramina: No significant lumbar canal or foraminal stenosis within the constraints of the study. Sacrum and iliac wings: The visualized sacrum and iliac wings are within normal limits. The presacral soft tissues are normal in appearance. DIVISION OF RADIOLOGY Provider, [facility] - 06/08/2024 * * *Final Report* * * DATE OF EXAM: Jun 08 2024 2:06PM [facility] 0298 - MRI CERVICAL SPINE WO/W IVCON / PROCEDURE REASON: Low back pain, unspecified back pain laterality, unspecified chronicity, unspeci * * * * Physician Interpretation * * * * EXAMINATION: MRI CERVICAL SPINE WO/W IVCON, MRI LUMBAR SPINE WO/W IVCON, MRI THORACIC SPINE WO/W IVCON CLINICAL HISTORY: Low back pain, unspecified back pain laterality, unspecified chronicity, unspecified whether sciatica present. TECHNIQUE: Routine cervical, thoracic, and lumbosacral spine MR protocol without and with intravenous gadolinium. MQ: MRCTLWO_3 Contrast: IV administration of 16 ml of Dotarem COMPARISON: Ultrasound pelvis 2024 and chest radiograph 2024. RESULT: Motion artifact is noted on the examination. CERVICAL: Counting reference: Craniocervical junction. Anatomic Variants: None. Localizer images: No additional findings. Alignment: Alignment is anatomic. Craniocervical junction: Craniocervical junction is normal. Cord: No definite signal abnormality of the cervical spinal cord within limitations from motion artifact. Bone marrow signal/fracture: No evidence of pathologic marrow infiltration. No evidence of prior fracture. Cervical soft tissues: The paraspinal soft tissues are within normal limits. Canal and foramina: No significant cervical canal or foraminal stenosis within the constraints of the study. Minor disc bulges are seen from C2 to C7 but do not cause any significant narrowing of the spinal canal. The neural foramina are not well evaluated due to motion artifact. At the C3-C4 level there does appear to be moderate left neural foraminal narrowing. THORACIC: Counting reference: Craniocervical and lumbosacral junctions. For the purposes of this report, L4-5 is considered the level of the iliac crest and assume there are 5 lumbar-type vertebrae. Anatomic variant: None. Localizer images: Large right pleural effusion and large volume abdominopelvic ascites. Alignment: Mildly accentuated thoracic kyphosis. Cord: Evaluation of cord signal is limited due to motion artifact. Bone marrow signal/fracture: Evaluation of marrow signal is limited due to artifact. There are areas of low T1 marrow signal within the T10 and T12 vertebral bodies that appear to 6 demonstrates STIR hyperintensity. Mild chronic superior endplate compression fracture of the T7 and T8 vertebral bodies. Mild chronic superior endplate height loss of T5. Thoracic soft tissues: The paraspinal soft tissues are within normal limits. Canal and foramina: No significant thoracic canal or foraminal stenosis within the constraints of the study. LUMBAR: Counting reference: Craniocervical and lumbosacral junctions. For the purposes of this report, L4-5 is considered the level of the iliac crest and assume there are 5 lumbar-type vertebrae. Anatomic variant: None. Localizer images: Large right-sided pleural effusion and large volume abdominopelvic ascites. Alignment: Alignment is anatomic. Bone marrow signal/fracture: There is heterogenous marrow signal within the lumbar spine. No evidence of prior fracture. Conus: Evaluation of cord signal is limited due to artifact. Paraspinal soft tissues: Paraspinal soft tissues are within normal limits. Canal and foramina: No significant lumbar canal or foraminal stenosis within the constraints of the study. Sacrum and iliac wings: The visualized sacrum and iliac wings are within normal limits. The presacral soft tissues are normal in appearance. IMPRESSION IMPRESSION: 1. Suboptimal examination due to motion artifact. 2. Large right pleural effusion. Large volume abdominopelvic ascites. Better evaluated on recent chest radiograph and pelvic ultrasound. 3. Low T1 marrow signal intensity lesions within the T10 and T12 vertebral bodies are not well evaluated due to artifact. Pathologic marrow replacing lesions are not excluded. Consider repeat MRI of the thoracic spine when the patient's clinical state allows. 4. Mild chronic superior endplate compression fractures of the T7 and T8 vertebral bodies. 5. No significant spinal canal stenosis. Cervical Anatomic Variant: None. Assume 7 cervical vertebrae with counting from the craniocervical junction. Anatomic Thoracic/Lumbar Variant: None. L4-5 is considered the level of the iliac crest and assume there are 5 lumbar-type vertebrae. 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: Loopt Transcribe Date/Time: Jun 08 2024 3:55P Dictated by : BRENDA MUNOZ MD This examination was interpreted and the report reviewed and electronically signed by: BRENDA MUNOZ MD on Jun 08 2024 4:10PM [facility] MR Lumbar spine WO and W con trast Syed 06-08-2024 * * *Final Report* * * DATE OF EXAM: Jun 08 2024 2:06PM [facility] 0304 - MRI LUMBAR SPINE WO/W IVCON / PROCEDURE REASON: Low back pain, unspecified back pain laterality, unspecified chronicity, unspeci * * * * Physician Interpretation * * * * EXAMINATION: MRI CERVICAL SPINE WO/W IVCON, MRI LUMBAR SPINE WO/W IVCON, MRI THORACIC SPINE WO/W IVCON CLINICAL HISTORY: Low back pain, unspecified back pain laterality, unspecified chronicity, unspecified whether sciatica present. TECHNIQUE: Routine cervical, thoracic, and lumbosacral spine MR protocol without and with intravenous gadolinium. MQ: MRCTLWO_3 Contrast: IV administration of 16 ml of Dotarem COMPARISON: Ultrasound pelvis 2024 and chest radiograph 2024. RESULT: Motion artifact is noted on the examination. CERVICAL: Counting reference: Craniocervical junction. Anatomic Variants: None. Localizer images: No additional findings. Alignment: Alignment is anatomic. Craniocervical junction: Craniocervical junction is normal. Cord: No definite signal abnormality of the cervical spinal cord within limitations from motion artifact. Bone marrow signal/fracture: No evidence of pathologic marrow infiltration. No evidence of prior fracture. Cervical soft tissues: The paraspinal soft tissues are within normal limits. Canal and foramina: No significant cervical canal or foraminal stenosis within the constraints of the study. Minor disc bulges are seen from C2 to C7 but do not cause any significant narrowing of the spinal canal. The neural foramina are not well evaluated due to motion artifact. At the C3-C4 level there does appear to be moderate left neural foraminal narrowing. THORACIC: Counting reference: Craniocervical and lumbosacral junctions. For the purposes of this report, L4-5 is considered the level of the iliac crest and assume there are 5 lumbar-type vertebrae. Anatomic variant: None. Localizer images: Large right pleural effusion and large volume abdominopelvic ascites. Alignment: Mildly accentuated thoracic kyphosis. Cord: Evaluation of cord signal is limited due to motion artifact. Bone marrow signal/fracture: Evaluation of marrow signal is limited due to artifact. There are areas of low T1 marrow signal within the T10 and T12 vertebral bodies that appear to 6 demonstrates STIR hyperintensity. Mild chronic superior endplate compression fracture of the T7 and T8 vertebral bodies. Mild chronic superior endplate height loss of T5. Thoracic soft tissues: The paraspinal soft tissues are within normal limits. Canal and foramina: No significant thoracic canal or foraminal stenosis within the constraints of the study. LUMBAR: Counting reference: Craniocervical and lumbosacral junctions. For the purposes of this report, L4-5 is considered the level of the iliac crest and assume there are 5 lumbar-type vertebrae. Anatomic variant: None. Localizer images: Large right-sided pleural effusion and large volume abdominopelvic ascites. Alignment: Alignment is anatomic. Bone marrow signal/fracture: There is heterogenous marrow signal within the lumbar spine. No evidence of prior fracture. Conus: Evaluation of cord signal is limited due to artifact. Paraspinal soft tissues: Paraspinal soft tissues are within normal limits. Canal and foramina: No significant lumbar canal or foraminal stenosis within the constraints of the study. Sacrum and iliac wings: The visualized sacrum and iliac wings are within normal limits. The presacral soft tissues are normal in appearance. DIVISION OF RADIOLOGY Provider, [facility] - 06/08/2024 * * *Final Report* * * DATE OF EXAM: Jun 08 2024 2:06PM [facility]BM 0304 - MRI LUMBAR SPINE WO/W IVCON / PROCEDURE REASON: Low back pain, unspecified back pain laterality, unspecified chronicity, unspeci * * * * Physician Interpretation * * * * EXAMINATION: MRI CERVICAL SPINE WO/W IVCON, MRI LUMBAR SPINE WO/W IVCON, MRI THORACIC SPINE WO/W IVCON CLINICAL HISTORY: Low back pain, unspecified back pain laterality, unspecified chronicity, unspecified whether sciatica present. TECHNIQUE: Routine cervical, thoracic, and lumbosacral spine MR protocol without and with intravenous gadolinium. MQ: MRCTLWO_3 Contrast: IV administration of 16 ml of Dotarem COMPARISON: Ultrasound pelvis 2024 and chest radiograph 2024. RESULT: Motion artifact is noted on the examination. CERVICAL: Counting reference: Craniocervical junction. Anatomic Variants: None. Localizer images: No additional findings. Alignment: Alignment is anatomic. Craniocervical junction: Craniocervical junction is normal. Cord: No definite signal abnormality of the cervical spinal cord within limitations from motion artifact. Bone marrow signal/fracture: No evidence of pathologic marrow infiltration. No evidence of prior fracture. Cervical soft tissues: The paraspinal soft tissues are within normal limits. Canal and foramina: No significant cervical canal or foraminal stenosis within the constraints of the study. Minor disc bulges are seen from C2 to C7 but do not cause any significant narrowing of the spinal canal. The neural foramina are not well evaluated due to motion artifact. At the C3-C4 level there does appear to be moderate left neural foraminal narrowing. THORACIC: Counting reference: Craniocervical and lumbosacral junctions. For the purposes of this report, L4-5 is considered the level of the iliac crest and assume there are 5 lumbar-type vertebrae. Anatomic variant: None. Localizer images: Large right pleural effusion and large volume abdominopelvic ascites. Alignment: Mildly accentuated thoracic kyphosis. Cord: Evaluation of cord signal is limited due to motion artifact. Bone marrow signal/fracture: Evaluation of marrow signal is limited due to artifact. There are areas of low T1 marrow signal within the T10 and T12 vertebral bodies that appear to 6 demonstrates STIR hyperintensity. Mild chronic superior endplate compression fracture of the T7 and T8 vertebral bodies. Mild chronic superior endplate height loss of T5. Thoracic soft tissues: The paraspinal soft tissues are within normal limits. Canal and foramina: No significant thoracic canal or foraminal stenosis within the constraints of the study. LUMBAR: Counting reference: Craniocervical and lumbosacral junctions. For the purposes of this report, L4-5 is considered the level of the iliac crest and assume there are 5 lumbar-type vertebrae. Anatomic variant: None. Localizer images: Large right-sided pleural effusion and large volume abdominopelvic ascites. Alignment: Alignment is anatomic. Bone marrow signal/fracture: There is heterogenous marrow signal within the lumbar spine. No evidence of prior fracture. Conus: Evaluation of cord signal is limited due to artifact. Paraspinal soft tissues: Paraspinal soft tissues are within normal limits. Canal and foramina: No significant lumbar canal or foraminal stenosis within the constraints of the study. Sacrum and iliac wings: The visualized sacrum and iliac wings are within normal limits. The presacral soft tissues are normal in appearance. IMPRESSION IMPRESSION: 1. Suboptimal examination due to motion artifact. 2. Large right pleural effusion. Large volume abdominopelvic ascites. Better evaluated on recent chest radiograph and pelvic ultrasound. 3. Low T1 marrow signal intensity lesions within the T10 and T12 vertebral bodies are not well evaluated due to artifact. Pathologic marrow replacing lesions are not excluded. Consider repeat MRI of the thoracic spine when the patient's clinical state allows. 4. Mild chronic superior endplate compression fractures of the T7 and T8 vertebral bodies. 5. No significant spinal canal stenosis. Cervical Anatomic Variant: None. Assume 7 cervical vertebrae with counting from the craniocervical junction. Anatomic Thoracic/Lumbar Variant: None. L4-5 is considered the level of the iliac crest and assume there are 5 lumbar-type vertebrae. 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: SRINI Transcribe Date/Time: Jun 08 2024 3:55P Dictated by : BRENDA MUNOZ MD This examination was interpreted and the report reviewed and electronically signed by: BRENDA MUNOZ MD on Jun 08 2024 4:10PM EST [facility] Radiology Study observation (narrative) [facility] MR Thoracic spine WO and W c ontrast Syed 06-08-2024 * * *Final Report* * * DATE OF EXAM: Jun 08 2024 2:06PM [facility] 0326 - MRI THORACIC SPINE WO/W IVCON / PROCEDURE REASON: Low back pain, unspecified back pain laterality, unspecified chronicity, unspeci * * * * Physician Interpretation * * * * EXAMINATION: MRI CERVICAL SPINE WO/W IVCON, MRI LUMBAR SPINE WO/W IVCON, MRI THORACIC SPINE WO/W IVCON CLINICAL HISTORY: Low back pain, unspecified back pain laterality, unspecified chronicity, unspecified whether sciatica present. TECHNIQUE: Routine cervical, thoracic, and lumbosacral spine MR protocol without and with intravenous gadolinium. MQ: MRCTLWO_3 Contrast: IV administration of 16 ml of Dotarem COMPARISON: Ultrasound pelvis 2024 and chest radiograph 2024. RESULT: Motion artifact is noted on the examination. CERVICAL: Counting reference: Craniocervical junction. Anatomic Variants: None. Localizer images: No additional findings. Alignment: Alignment is anatomic. Craniocervical junction: Craniocervical junction is normal. Cord: No definite signal abnormality of the cervical spinal cord within limitations from motion artifact. Bone marrow signal/fracture: No evidence of pathologic marrow infiltration. No evidence of prior fracture. Cervical soft tissues: The paraspinal soft tissues are within normal limits. Canal and foramina: No significant cervical canal or foraminal stenosis within the constraints of the study. Minor disc bulges are seen from C2 to C7 but do not cause any significant narrowing of the spinal canal. The neural foramina are not well evaluated due to motion artifact. At the C3-C4 level there does appear to be moderate left neural foraminal narrowing. THORACIC: Counting reference: Craniocervical and lumbosacral junctions. For the purposes of this report, L4-5 is considered the level of the iliac crest and assume there are 5 lumbar-type vertebrae. Anatomic variant: None. Localizer images: Large right pleural effusion and large volume abdominopelvic ascites. Alignment: Mildly accentuated thoracic kyphosis. Cord: Evaluation of cord signal is limited due to motion artifact. Bone marrow signal/fracture: Evaluation of marrow signal is limited due to artifact. There are areas of low T1 marrow signal within the T10 and T12 vertebral bodies that appear to 6 demonstrates STIR hyperintensity. Mild chronic superior endplate compression fracture of the T7 and T8 vertebral bodies. Mild chronic superior endplate height loss of T5. Thoracic soft tissues: The paraspinal soft tissues are within normal limits. Canal and foramina: No significant thoracic canal or foraminal stenosis within the constraints of the study. LUMBAR: Counting reference: Craniocervical and lumbosacral junctions. For the purposes of this report, L4-5 is considered the level of the iliac crest and assume there are 5 lumbar-type vertebrae. Anatomic variant: None. Localizer images: Large right-sided pleural effusion and large volume abdominopelvic ascites. Alignment: Alignment is anatomic. Bone marrow signal/fracture: There is heterogenous marrow signal within the lumbar spine. No evidence of prior fracture. Conus: Evaluation of cord signal is limited due to artifact. Paraspinal soft tissues: Paraspinal soft tissues are within normal limits. Canal and foramina: No significant lumbar canal or foraminal stenosis within the constraints of the study. Sacrum and iliac wings: The visualized sacrum and iliac wings are within normal limits. The presacral soft tissues are normal in appearance. DIVISION OF RADIOLOGY Provider, [facility] - 06/08/2024 * * *Final Report* * * DATE OF EXAM: Jun 08 2024 2:06PM [facility] 0326 - MRI THORACIC SPINE WO/W IVCON / PROCEDURE REASON: Low back pain, unspecified back pain laterality, unspecified chronicity, unspeci * * * * Physician Interpretation * * * * EXAMINATION: MRI CERVICAL SPINE WO/W IVCON, MRI LUMBAR SPINE WO/W IVCON, MRI THORACIC SPINE WO/W IVCON CLINICAL HISTORY: Low back pain, unspecified back pain laterality, unspecified chronicity, unspecified whether sciatica present. TECHNIQUE: Routine cervical, thoracic, and lumbosacral spine MR protocol without and with intravenous gadolinium. MQ: MRCTLWO_3 Contrast: IV administration of 16 ml of Dotarem COMPARISON: Ultrasound pelvis 2024 and chest radiograph 2024. RESULT: Motion artifact is noted on the examination. CERVICAL: Counting reference: Craniocervical junction. Anatomic Variants: None. Localizer images: No additional findings. Alignment: Alignment is anatomic. Craniocervical junction: Craniocervical junction is normal. Cord: No definite signal abnormality of the cervical spinal cord within limitations from motion artifact. Bone marrow signal/fracture: No evidence of pathologic marrow infiltration. No evidence of prior fracture. Cervical soft tissues: The paraspinal soft tissues are within normal limits. Canal and foramina: No significant cervical canal or foraminal stenosis within the constraints of the study. Minor disc bulges are seen from C2 to C7 but do not cause any significant narrowing of the spinal canal. The neural foramina are not well evaluated due to motion artifact. At the C3-C4 level there does appear to be moderate left neural foraminal narrowing. THORACIC: Counting reference: Craniocervical and lumbosacral junctions. For the purposes of this report, L4-5 is considered the level of the iliac crest and assume there are 5 lumbar-type vertebrae. Anatomic variant: None. Localizer images: Large right pleural effusion and large volume abdominopelvic ascites. Alignment: Mildly accentuated thoracic kyphosis. Cord: Evaluation of cord signal is limited due to motion artifact. Bone marrow signal/fracture: Evaluation of marrow signal is limited due to artifact. There are areas of low T1 marrow signal within the T10 and T12 vertebral bodies that appear to 6 demonstrates STIR hyperintensity. Mild chronic superior endplate compression fracture of the T7 and T8 vertebral bodies. Mild chronic superior endplate height loss of T5. Thoracic soft tissues: The paraspinal soft tissues are within normal limits. Canal and foramina: No significant thoracic canal or foraminal stenosis within the constraints of the study. LUMBAR: Counting reference: Craniocervical and lumbosacral junctions. For the purposes of this report, L4-5 is considered the level of the iliac crest and assume there are 5 lumbar-type vertebrae. Anatomic variant: None. Localizer images: Large right-sided pleural effusion and large volume abdominopelvic ascites. Alignment: Alignment is anatomic. Bone marrow signal/fracture: There is heterogenous marrow signal within the lumbar spine. No evidence of prior fracture. Conus: Evaluation of cord signal is limited due to artifact. Paraspinal soft tissues: Paraspinal soft tissues are within normal limits. Canal and foramina: No significant lumbar canal or foraminal stenosis within the constraints of the study. Sacrum and iliac wings: The visualized sacrum and iliac wings are within normal limits. The presacral soft tissues are normal in appearance. IMPRESSION IMPRESSION: 1. Suboptimal examination due to motion artifact. 2. Large right pleural effusion. Large volume abdominopelvic ascites. Better evaluated on recent chest radiograph and pelvic ultrasound. 3. Low T1 marrow signal intensity lesions within the T10 and T12 vertebral bodies are not well evaluated due to artifact. Pathologic marrow replacing lesions are not excluded. Consider repeat MRI of the thoracic spine when the patient's clinical state allows. 4. Mild chronic superior endplate compression fractures of the T7 and T8 vertebral bodies. 5. No significant spinal canal stenosis. Cervical Anatomic Variant: None. Assume 7 cervical vertebrae with counting from the craniocervical junction. Anatomic Thoracic/Lumbar Variant: None. L4-5 is considered the level of the iliac crest and assume there are 5 lumbar-type vertebrae. 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: [facility] Transcribe Date/Time: Jun 08 2024 3:55P Dictated by : BRENDA MUNOZ MD This examination was interpreted and the report reviewed and electronically signed by: BRENDA MUNOZ MD on Jun 08 2024 4:10PM [facility] MRI CERVICAL SPINE WO/W IVCO Non 06-08-2024 * * *Final Report* * * DATE OF EXAM: Jun 08 2024 2:06PM [facility] 0298 - MRI CERVICAL SPINE WO/W IVCON / PROCEDURE REASON: Low back pain, unspecified back pain laterality, unspecified chronicity, unspeci * * * * Physician Interpretation * * * * EXAMINATION: MRI CERVICAL SPINE WO/W IVCON, MRI LUMBAR SPINE WO/W IVCON, MRI THORACIC SPINE WO/W IVCON CLINICAL HISTORY: Low back pain, unspecified back pain laterality, unspecified chronicity, unspecified whether sciatica present. TECHNIQUE: Routine cervical, thoracic, and lumbosacral spine MR protocol without and with intravenous gadolinium. MQ: MRCTLWO_3 Contrast: IV administration of 16 ml of Dotarem COMPARISON: Ultrasound pelvis 2024 and chest radiograph 2024. RESULT: Motion artifact is noted on the examination. CERVICAL: Counting reference: Craniocervical junction. Anatomic Variants: None. Localizer images: No additional findings. Alignment: Alignment is anatomic. Craniocervical junction: Craniocervical junction is normal. Cord: No definite signal abnormality of the cervical spinal cord within limitations from motion artifact. Bone marrow signal/fracture: No evidence of pathologic marrow infiltration. No evidence of prior fracture. Cervical soft tissues: The paraspinal soft tissues are within normal limits. Canal and foramina: No significant cervical canal or foraminal stenosis within the constraints of the study. Minor disc bulges are seen from C2 to C7 but do not cause any significant narrowing of the spinal canal. The neural foramina are not well evaluated due to motion artifact. At the C3-C4 level there does appear to be moderate left neural foraminal narrowing. THORACIC: Counting reference: Craniocervical and lumbosacral junctions. For the purposes of this report, L4-5 is considered the level of the iliac crest and assume there are 5 lumbar-type vertebrae. Anatomic variant: None. Localizer images: Large right pleural effusion and large volume abdominopelvic ascites. Alignment: Mildly accentuated thoracic kyphosis. Cord: Evaluation of cord signal is limited due to motion artifact. Bone marrow signal/fracture: Evaluation of marrow signal is limited due to artifact. There are areas of low T1 marrow signal within the T10 and T12 vertebral bodies that appear to 6 demonstrates STIR hyperintensity. Mild chronic superior endplate compression fracture of the T7 and T8 vertebral bodies. Mild chronic superior endplate height loss of T5. Thoracic soft tissues: The paraspinal soft tissues are within normal limits. Canal and foramina: No significant thoracic canal or foraminal stenosis within the constraints of the study. LUMBAR: Counting reference: Craniocervical and lumbosacral junctions. For the purposes of this report, L4-5 is considered the level of the iliac crest and assume there are 5 lumbar-type vertebrae. Anatomic variant: None. Localizer images: Large right-sided pleural effusion and large volume abdominopelvic ascites. Alignment: Alignment is anatomic. Bone marrow signal/fracture: There is heterogenous marrow signal within the lumbar spine. No evidence of prior fracture. Conus: Evaluation of cord signal is limited due to artifact. Paraspinal soft tissues: Paraspinal soft tissues are within normal limits. Canal and foramina: No significant lumbar canal or foraminal stenosis within the constraints of the study. Sacrum and iliac wings: The visualized sacrum and iliac wings are within normal limits. The presacral soft tissues are normal in appearance. IMPRESSION: 1. Suboptimal examination due to motion artifact. 2. Large right pleural effusion. Large volume abdominopelvic ascites. Better evaluated on recent chest radiograph and pelvic ultrasound. 3. Low T1 marrow signal intensity lesions within the T10 and T12 vertebral bodies are not well evaluated due to artifact. Pathologic marrow replacing lesions are not excluded. Consider repeat MRI of the thoracic spine when the patient's clinical state allows. 4. Mild chronic superior endplate compression fractures of the T7 and T8 vertebral bodies. 5. No significant spinal canal stenosis. Cervical Anatomic Variant: None. Assume 7 cervical vertebrae with counting from the craniocervical junction. Anatomic Thoracic/Lumbar Variant: None. L4-5 is considered the level of the iliac crest and assume there are 5 lumbar-type vertebrae. 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: [facility] Transcribe Date/Time: Jun 08 2024 3:55P Dictated by : BRENDA MUNOZ MD This examination was interpreted and the report reviewed and electronically signed by: BRENDA MUNOZ MD on Jun 08 2024 4:10PM EST [id number]^SI^[facility]N [facility], Radiologi MD lorenzo - 06/08/2024 * * *Final Report* * * DATE OF EXAM: Jun 08 2024 2:06PM [facility] 0298 - MRI CERVICAL SPINE WO/W IVCON / PROCEDURE REASON: Low back pain, unspecified back pain laterality, unspecified chronicity, unspeci * * * * Physician Interpretation * * * * EXAMINATION: MRI CERVICAL SPINE WO/W IVCON, MRI LUMBAR SPINE WO/W IVCON, MRI THORACIC SPINE WO/W IVCON CLINICAL HISTORY: Low back pain, unspecified back pain laterality, unspecified chronicity, unspecified whether sciatica present. TECHNIQUE: Routine cervical, thoracic, and lumbosacral spine MR protocol without and with intravenous gadolinium. MQ: MRCTLWO_3 Contrast: IV administration of 16 ml of Dotarem COMPARISON: Ultrasound pelvis 2024 and chest radiograph 2024. RESULT: Motion artifact is noted on the examination. CERVICAL: Counting reference: Craniocervical junction. Anatomic Variants: None. Localizer images: No additional findings. Alignment: Alignment is anatomic. Craniocervical junction: Craniocervical junction is normal. Cord: No definite signal abnormality of the cervical spinal cord within limitations from motion artifact. Bone marrow signal/fracture: No evidence of pathologic marrow infiltration. No evidence of prior fracture. Cervical soft tissues: The paraspinal soft tissues are within normal limits. Canal and foramina: No significant cervical canal or foraminal stenosis within the constraints of the study. Minor disc bulges are seen from C2 to C7 but do not cause any significant narrowing of the spinal canal. The neural foramina are not well evaluated due to motion artifact. At the C3-C4 level there does appear to be moderate left neural foraminal narrowing. THORACIC: Counting reference: Craniocervical and lumbosacral junctions. For the purposes of this report, L4-5 is considered the level of the iliac crest and assume there are 5 lumbar-type vertebrae. Anatomic variant: None. Localizer images: Large right pleural effusion and large volume abdominopelvic ascites. Alignment: Mildly accentuated thoracic kyphosis. Cord: Evaluation of cord signal is limited due to motion artifact. Bone marrow signal/fracture: Evaluation of marrow signal is limited due to artifact. There are areas of low T1 marrow signal within the T10 and T12 vertebral bodies that appear to 6 demonstrates STIR hyperintensity. Mild chronic superior endplate compression fracture of the T7 and T8 vertebral bodies. Mild chronic superior endplate height loss of T5. Thoracic soft tissues: The paraspinal soft tissues are within normal limits. Canal and foramina: No significant thoracic canal or foraminal stenosis within the constraints of the study. LUMBAR: Counting reference: Craniocervical and lumbosacral junctions. For the purposes of this report, L4-5 is considered the level of the iliac crest and assume there are 5 lumbar-type vertebrae. Anatomic variant: None. Localizer images: Large right-sided pleural effusion and large volume abdominopelvic ascites. Alignment: Alignment is anatomic. Bone marrow signal/fracture: There is heterogenous marrow signal within the lumbar spine. No evidence of prior fracture. Conus: Evaluation of cord signal is limited due to artifact. Paraspinal soft tissues: Paraspinal soft tissues are within normal limits. Canal and foramina: No significant lumbar canal or foraminal stenosis within the constraints of the study. Sacrum and iliac wings: The visualized sacrum and iliac wings are within normal limits. The presacral soft tissues are normal in appearance. IMPRESSION: 1. Suboptimal examination due to motion artifact. 2. Large right pleural effusion. Large volume abdominopelvic ascites. Better evaluated on recent chest radiograph and pelvic ultrasound. 3. Low T1 marrow signal intensity lesions within the T10 and T12 vertebral bodies are not well evaluated due to artifact. Pathologic marrow replacing lesions are not excluded. Consider repeat MRI of the thoracic spine when the patient's clinical state allows. 4. Mild chronic superior endplate compression fractures of the T7 and T8 vertebral bodies. 5. No significant spinal canal stenosis. Cervical Anatomic Variant: None. Assume 7 cervical vertebrae with counting from the craniocervical junction. Anatomic Thoracic/Lumbar Variant: None. L4-5 is considered the level of the iliac crest and assume there are 5 lumbar-type vertebrae. 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: [facility] Transcribe Date/Time: Jun 08 2024 3:55P Dictated by : BRENDA MUNOZ MD This examination was interpreted and the report reviewed and electronically signed by: BRENDA MUNOZ MD on Jun 08 2024 4:10PM EST [id number]^SI^[facility] MRI LUMBAR SPINE WO/W IVCONo n 06-08-2024 * * *Final Report* * * DATE OF EXAM: Jun 08 2024 2:06PM [facility] 0304 - MRI LUMBAR SPINE WO/W IVCON / PROCEDURE REASON: Low back pain, unspecified back pain laterality, unspecified chronicity, unspeci * * * * Physician Interpretation * * * * EXAMINATION: MRI CERVICAL SPINE WO/W IVCON, MRI LUMBAR SPINE WO/W IVCON, MRI THORACIC SPINE WO/W IVCON CLINICAL HISTORY: Low back pain, unspecified back pain laterality, unspecified chronicity, unspecified whether sciatica present. TECHNIQUE: Routine cervical, thoracic, and lumbosacral spine MR protocol without and with intravenous gadolinium. MQ: MRCTLWO_3 Contrast: IV administration of 16 ml of Dotarem COMPARISON: Ultrasound pelvis 2024 and chest radiograph 2024. RESULT: Motion artifact is noted on the examination. CERVICAL: Counting reference: Craniocervical junction. Anatomic Variants: None. Localizer images: No additional findings. Alignment: Alignment is anatomic. Craniocervical junction: Craniocervical junction is normal. Cord: No definite signal abnormality of the cervical spinal cord within limitations from motion artifact. Bone marrow signal/fracture: No evidence of pathologic marrow infiltration. No evidence of prior fracture. Cervical soft tissues: The paraspinal soft tissues are within normal limits. Canal and foramina: No significant cervical canal or foraminal stenosis within the constraints of the study. Minor disc bulges are seen from C2 to C7 but do not cause any significant narrowing of the spinal canal. The neural foramina are not well evaluated due to motion artifact. At the C3-C4 level there does appear to be moderate left neural foraminal narrowing. THORACIC: Counting reference: Craniocervical and lumbosacral junctions. For the purposes of this report, L4-5 is considered the level of the iliac crest and assume there are 5 lumbar-type vertebrae. Anatomic variant: None. Localizer images: Large right pleural effusion and large volume abdominopelvic ascites. Alignment: Mildly accentuated thoracic kyphosis. Cord: Evaluation of cord signal is limited due to motion artifact. Bone marrow signal/fracture: Evaluation of marrow signal is limited due to artifact. There are areas of low T1 marrow signal within the T10 and T12 vertebral bodies that appear to 6 demonstrates STIR hyperintensity. Mild chronic superior endplate compression fracture of the T7 and T8 vertebral bodies. Mild chronic superior endplate height loss of T5. Thoracic soft tissues: The paraspinal soft tissues are within normal limits. Canal and foramina: No significant thoracic canal or foraminal stenosis within the constraints of the study. LUMBAR: Counting reference: Craniocervical and lumbosacral junctions. For the purposes of this report, L4-5 is considered the level of the iliac crest and assume there are 5 lumbar-type vertebrae. Anatomic variant: None. Localizer images: Large right-sided pleural effusion and large volume abdominopelvic ascites. Alignment: Alignment is anatomic. Bone marrow signal/fracture: There is heterogenous marrow signal within the lumbar spine. No evidence of prior fracture. Conus: Evaluation of cord signal is limited due to artifact. Paraspinal soft tissues: Paraspinal soft tissues are within normal limits. Canal and foramina: No significant lumbar canal or foraminal stenosis within the constraints of the study. Sacrum and iliac wings: The visualized sacrum and iliac wings are within normal limits. The presacral soft tissues are normal in appearance. IMPRESSION: 1. Suboptimal examination due to motion artifact. 2. Large right pleural effusion. Large volume abdominopelvic ascites. Better evaluated on recent chest radiograph and pelvic ultrasound. 3. Low T1 marrow signal intensity lesions within the T10 and T12 vertebral bodies are not well evaluated due to artifact. Pathologic marrow replacing lesions are not excluded. Consider repeat MRI of the thoracic spine when the patient's clinical state allows. 4. Mild chronic superior endplate compression fractures of the T7 and T8 vertebral bodies. 5. No significant spinal canal stenosis. Cervical Anatomic Variant: None. Assume 7 cervical vertebrae with counting from the craniocervical junction. Anatomic Thoracic/Lumbar Variant: None. L4-5 is considered the level of the iliac crest and assume there are 5 lumbar-type vertebrae. 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: [facility] Transcribe Date/Time: Jun 08 2024 3:55P Dictated by : BRENDA MUNOZ MD This examination was interpreted and the report reviewed and electronically signed by: BRENDA MUNOZ MD on Jun 08 2024 4:10PM EST [id number]^SI^ACN [facility], Radiologi MD lorenzo - 06/08/2024 * * *Final Report* * * DATE OF EXAM: Jun 08 2024 2:06PM [facility] 0304 - MRI LUMBAR SPINE WO/W IVCON / PROCEDURE REASON: Low back pain, unspecified back pain laterality, unspecified chronicity, unspeci * * * * Physician Interpretation * * * * EXAMINATION: MRI CERVICAL SPINE WO/W IVCON, MRI LUMBAR SPINE WO/W IVCON, MRI THORACIC SPINE WO/W IVCON CLINICAL HISTORY: Low back pain, unspecified back pain laterality, unspecified chronicity, unspecified whether sciatica present. TECHNIQUE: Routine cervical, thoracic, and lumbosacral spine MR protocol without and with intravenous gadolinium. MQ: MRCTLWO_3 Contrast: IV administration of 16 ml of Dotarem COMPARISON: Ultrasound pelvis 2024 and chest radiograph 2024. RESULT: Motion artifact is noted on the examination. CERVICAL: Counting reference: Craniocervical junction. Anatomic Variants: None. Localizer images: No additional findings. Alignment: Alignment is anatomic. Craniocervical junction: Craniocervical junction is normal. Cord: No definite signal abnormality of the cervical spinal cord within limitations from motion artifact. Bone marrow signal/fracture: No evidence of pathologic marrow infiltration. No evidence of prior fracture. Cervical soft tissues: The paraspinal soft tissues are within normal limits. Canal and foramina: No significant cervical canal or foraminal stenosis within the constraints of the study. Minor disc bulges are seen from C2 to C7 but do not cause any significant narrowing of the spinal canal. The neural foramina are not well evaluated due to motion artifact. At the C3-C4 level there does appear to be moderate left neural foraminal narrowing. THORACIC: Counting reference: Craniocervical and lumbosacral junctions. For the purposes of this report, L4-5 is considered the level of the iliac crest and assume there are 5 lumbar-type vertebrae. Anatomic variant: None. Localizer images: Large right pleural effusion and large volume abdominopelvic ascites. Alignment: Mildly accentuated thoracic kyphosis. Cord: Evaluation of cord signal is limited due to motion artifact. Bone marrow signal/fracture: Evaluation of marrow signal is limited due to artifact. There are areas of low T1 marrow signal within the T10 and T12 vertebral bodies that appear to 6 demonstrates STIR hyperintensity. Mild chronic superior endplate compression fracture of the T7 and T8 vertebral bodies. Mild chronic superior endplate height loss of T5. Thoracic soft tissues: The paraspinal soft tissues are within normal limits. Canal and foramina: No significant thoracic canal or foraminal stenosis within the constraints of the study. LUMBAR: Counting reference: Craniocervical and lumbosacral junctions. For the purposes of this report, L4-5 is considered the level of the iliac crest and assume there are 5 lumbar-type vertebrae. Anatomic variant: None. Localizer images: Large right-sided pleural effusion and large volume abdominopelvic ascites. Alignment: Alignment is anatomic. Bone marrow signal/fracture: There is heterogenous marrow signal within the lumbar spine. No evidence of prior fracture. Conus: Evaluation of cord signal is limited due to artifact. Paraspinal soft tissues: Paraspinal soft tissues are within normal limits. Canal and foramina: No significant lumbar canal or foraminal stenosis within the constraints of the study. Sacrum and iliac wings: The visualized sacrum and iliac wings are within normal limits. The presacral soft tissues are normal in appearance. IMPRESSION: 1. Suboptimal examination due to motion artifact. 2. Large right pleural effusion. Large volume abdominopelvic ascites. Better evaluated on recent chest radiograph and pelvic ultrasound. 3. Low T1 marrow signal intensity lesions within the T10 and T12 vertebral bodies are not well evaluated due to artifact. Pathologic marrow replacing lesions are not excluded. Consider repeat MRI of the thoracic spine when the patient's clinical state allows. 4. Mild chronic superior endplate compression fractures of the T7 and T8 vertebral bodies. 5. No significant spinal canal stenosis. Cervical Anatomic Variant: None. Assume 7 cervical vertebrae with counting from the craniocervical junction. Anatomic Thoracic/Lumbar Variant: None. L4-5 is considered the level of the iliac crest and assume there are 5 lumbar-type vertebrae. 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: [employer] Transcribe Date/Time: Jun 08 2024 3:55P Dictated by : BRENDA MUNOZ MD This examination was interpreted and the report reviewed and electronically signed by: BRENDA MUNOZ MD on Jun 08 2024 4:10PM EST [id number]^AGFA_[id number]^SI^[facility] MRI THORACIC SPINE WO/W IVCO Non 06-08-2024 * * *Final Report* * * DATE OF EXAM: Jun 08 2024 2:06PM [facility] 0326 - MRI THORACIC SPINE WO/W IVCON / PROCEDURE REASON: Low back pain, unspecified back pain laterality, unspecified chronicity, unspeci * * * * Physician Interpretation * * * * EXAMINATION: MRI CERVICAL SPINE WO/W IVCON, MRI LUMBAR SPINE WO/W IVCON, MRI THORACIC SPINE WO/W IVCON CLINICAL HISTORY: Low back pain, unspecified back pain laterality, unspecified chronicity, unspecified whether sciatica present. TECHNIQUE: Routine cervical, thoracic, and lumbosacral spine MR protocol without and with intravenous gadolinium. MQ: [id number]_3 Contrast: IV administration of 16 ml of Dotarem COMPARISON: Ultrasound pelvis 2024 and chest radiograph 2024. RESULT: Motion artifact is noted on the examination. CERVICAL: Counting reference: Craniocervical junction. Anatomic Variants: None. Localizer images: No additional findings. Alignment: Alignment is anatomic. Craniocervical junction: Craniocervical junction is normal. Cord: No definite signal abnormality of the cervical spinal cord within limitations from motion artifact. Bone marrow signal/fracture: No evidence of pathologic marrow infiltration. No evidence of prior fracture. Cervical soft tissues: The paraspinal soft tissues are within normal limits. Canal and foramina: No significant cervical canal or foraminal stenosis within the constraints of the study. Minor disc bulges are seen from C2 to C7 but do not cause any significant narrowing of the spinal canal. The neural foramina are not well evaluated due to motion artifact. At the C3-C4 level there does appear to be moderate left neural foraminal narrowing. THORACIC: Counting reference: Craniocervical and lumbosacral junctions. For the purposes of this report, L4-5 is considered the level of the iliac crest and assume there are 5 lumbar-type vertebrae. Anatomic variant: None. Localizer images: Large right pleural effusion and large volume abdominopelvic ascites. Alignment: Mildly accentuated thoracic kyphosis. Cord: Evaluation of cord signal is limited due to motion artifact. Bone marrow signal/fracture: Evaluation of marrow signal is limited due to artifact. There are areas of low T1 marrow signal within the T10 and T12 vertebral bodies that appear to 6 demonstrates STIR hyperintensity. Mild chronic superior endplate compression fracture of the T7 and T8 vertebral bodies. Mild chronic superior endplate height loss of T5. Thoracic soft tissues: The paraspinal soft tissues are within normal limits. Canal and foramina: No significant thoracic canal or foraminal stenosis within the constraints of the study. LUMBAR: Counting reference: Craniocervical and lumbosacral junctions. For the purposes of this report, L4-5 is considered the level of the iliac crest and assume there are 5 lumbar-type vertebrae. Anatomic variant: None. Localizer images: Large right-sided pleural effusion and large volume abdominopelvic ascites. Alignment: Alignment is anatomic. Bone marrow signal/fracture: There is heterogenous marrow signal within the lumbar spine. No evidence of prior fracture. Conus: Evaluation of cord signal is limited due to artifact. Paraspinal soft tissues: Paraspinal soft tissues are within normal limits. Canal and foramina: No significant lumbar canal or foraminal stenosis within the constraints of the study. Sacrum and iliac wings: The visualized sacrum and iliac wings are within normal limits. The presacral soft tissues are normal in appearance. IMPRESSION: 1. Suboptimal examination due to motion artifact. 2. Large right pleural effusion. Large volume abdominopelvic ascites. Better evaluated on recent chest radiograph and pelvic ultrasound. 3. Low T1 marrow signal intensity lesions within the T10 and T12 vertebral bodies are not well evaluated due to artifact. Pathologic marrow replacing lesions are not excluded. Consider repeat MRI of the thoracic spine when the patient's clinical state allows. 4. Mild chronic superior endplate compression fractures of the T7 and T8 vertebral bodies. 5. No significant spinal canal stenosis. Cervical Anatomic Variant: None. Assume 7 cervical vertebrae with counting from the craniocervical junction. Anatomic Thoracic/Lumbar Variant: None. L4-5 is considered the level of the iliac crest and assume there are 5 lumbar-type vertebrae. 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: P[facility] Transcribe Date/Time: Jun 08 2024 3:55P Dictated by : BRENDA MUNOZ MD This examination was interpreted and the report reviewed and electronically signed by: BRENDA MUNOZ MD on Jun 08 2024 4:10PM EST [id number]^[email or web address]^SI^ACN [facility], Radiologi MD lorenzo - 06/08/2024 * * *Final Report* * * DATE OF EXAM: Jun 08 2024 2:06PM [facility] 0326 - MRI THORACIC SPINE WO/W IVCON / PROCEDURE REASON: Low back pain, unspecified back pain laterality, unspecified chronicity, unspeci * * * * Physician Interpretation * * * * EXAMINATION: MRI CERVICAL SPINE WO/W IVCON, MRI LUMBAR SPINE WO/W IVCON, MRI THORACIC SPINE WO/W IVCON CLINICAL HISTORY: Low back pain, unspecified back pain laterality, unspecified chronicity, unspecified whether sciatica present. TECHNIQUE: Routine cervical, thoracic, and lumbosacral spine MR protocol without and with intravenous gadolinium. MQ: [id number]_3 Contrast: IV administration of 16 ml of Dotarem COMPARISON: Ultrasound pelvis 2024 and chest radiograph 2024. RESULT: Motion artifact is noted on the examination. CERVICAL: Counting reference: Craniocervical junction. Anatomic Variants: None. Localizer images: No additional findings. Alignment: Alignment is anatomic. Craniocervical junction: Craniocervical junction is normal. Cord: No definite signal abnormality of the cervical spinal cord within limitations from motion artifact. Bone marrow signal/fracture: No evidence of pathologic marrow infiltration. No evidence of prior fracture. Cervical soft tissues: The paraspinal soft tissues are within normal limits. Canal and foramina: No significant cervical canal or foraminal stenosis within the constraints of the study. Minor disc bulges are seen from C2 to C7 but do not cause any significant narrowing of the spinal canal. The neural foramina are not well evaluated due to motion artifact. At the C3-C4 level there does appear to be moderate left neural foraminal narrowing. THORACIC: Counting reference: Craniocervical and lumbosacral junctions. For the purposes of this report, L4-5 is considered the level of the iliac crest and assume there are 5 lumbar-type vertebrae. Anatomic variant: None. Localizer images: Large right pleural effusion and large volume abdominopelvic ascites. Alignment: Mildly accentuated thoracic kyphosis. Cord: Evaluation of cord signal is limited due to motion artifact. Bone marrow signal/fracture: Evaluation of marrow signal is limited due to artifact. There are areas of low T1 marrow signal within the T10 and T12 vertebral bodies that appear to 6 demonstrates STIR hyperintensity. Mild chronic superior endplate compression fracture of the T7 and T8 vertebral bodies. Mild chronic superior endplate height loss of T5. Thoracic soft tissues: The paraspinal soft tissues are within normal limits. Canal and foramina: No significant thoracic canal or foraminal stenosis within the constraints of the study. LUMBAR: Counting reference: Craniocervical and lumbosacral junctions. For the purposes of this report, L4-5 is considered the level of the iliac crest and assume there are 5 lumbar-type vertebrae. Anatomic variant: None. Localizer images: Large right-sided pleural effusion and large volume abdominopelvic ascites. Alignment: Alignment is anatomic. Bone marrow signal/fracture: There is heterogenous marrow signal within the lumbar spine. No evidence of prior fracture. Conus: Evaluation of cord signal is limited due to artifact. Paraspinal soft tissues: Paraspinal soft tissues are within normal limits. Canal and foramina: No significant lumbar canal or foraminal stenosis within the constraints of the study. Sacrum and iliac wings: The visualized sacrum and iliac wings are within normal limits. The presacral soft tissues are normal in appearance. IMPRESSION: 1. Suboptimal examination due to motion artifact. 2. Large right pleural effusion. Large volume abdominopelvic ascites. Better evaluated on recent chest radiograph and pelvic ultrasound. 3. Low T1 marrow signal intensity lesions within the T10 and T12 vertebral bodies are not well evaluated due to artifact. Pathologic marrow replacing lesions are not excluded. Consider repeat MRI of the thoracic spine when the patient's clinical state allows. 4. Mild chronic superior endplate compression fractures of the T7 and T8 vertebral bodies. 5. No significant spinal canal stenosis. Cervical Anatomic Variant: None. Assume 7 cervical vertebrae with counting from the craniocervical junction. Anatomic Thoracic/Lumbar Variant: None. L4-5 is considered the level of the iliac crest and assume there are 5 lumbar-type vertebrae. 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 Suboptimal examination due to motion artifact. 2. Large right pleural effusion. Large volume abdominopelvic ascites. Better evaluated on recent chest radiograph and pelvic ultrasound. 3. Low T1 marrow signal intensity lesions within the T10 and T12 vertebral bodies are not well evaluated due to artifact. Pathologic marrow replacing lesions are not excluded. Consider repeat MRI of the thoracic spine when the patient's clinical state allows. 4. Mild chronic superior endplate compression fractures of the T7 and T8 vertebral bodies. 5. No significant spinal canal stenosis. Cervical Anatomic Variant: None. Assume 7 cervical vertebrae with counting from the craniocervical junction. Anatomic Thoracic/Lumbar Variant: None. L4-5 is considered the level of the iliac crest and assume there are 5 lumbar-type vertebrae. 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: [facility] Transcribe Date/Time: Jun 08 2024 3:55P Dictated by : BRENDA MUNOZ MD This examination was interpreted and the report reviewed and electronically signed by: BRENDA MUNOZ MD on Jun 08 2024 4:10PM EST DIVISION OF RADIOLOGY Radiology Study observation (narrative) [facility] Radiology Study observation (narrative) [facility] CMP (CMP) (FOR REMOTE C USE)on 06-07-2024 Albumin [Mass/Vol] 2.3 g/dL Low 3.4 - 5.0 g/dL [facility] ALBUMIN GLOBULIN RATIO 0.5 NO [facility] ALP [Catalytic activity/Vol] 128 U/L High 46 - 116 U/L [facility] ALT [Catalytic activity/Vol] 34 U/L 16 - 63 U/L [facility] Anion gap [Moles/Vol] 11.1 mmol/L NO [facility] AST [Catalytic activity/Vol] 50 U/L High 15 - 37 U/L [facility] Bilirubin [Mass/Vol] 1.4 mg/dL High 0.2 - 1 .0 mg/dL [facility] Calcium [Mass/Vol] 8.7 mg/dL 8.5 - 10. 1 mg/dL [facility] Chloride [Moles/Vol] 97 mmol/L Low 98 - 10 7 mmol/L [facility] CO2 [Moles/Vol] 25 mmol/L 21.0 - 32.0 mmol/L [facility] Creatinine [Mass/Vol] 1.74 mg/dL High 0.70 - 1.30 mg/dL [facility] GFR/1.73 sq M.predicted CKD-EPI (S/P/Bld) [Vol rate/Area] 47 Low >=60 mL/min/1.7 3m 2 [facility] Globulin (S) [Mass/Vol] 4.7 g/dL [facility] Glucose [Mass/Vol] 245 mg/dL High 74 - 106 mg/dL [facility] Interpretation and review of laboratory results Abnormal [facility] Potassium [Moles/Vol] 5.1 mmol/L 3.5 - 5.1 mmol/L [facility] Protein [Mass/Vol] 7 g/dL 6.4 - 8.2 g/dL [facility] Sodium [Moles/Vol] 128 mmol/L Low 136 - 145 mmol/L [facility] TBH EGFR-NON AF SRI LANKAN 39 Low >=60 mL/min/1.7 3m 2 [facility] Urea nitrogen [Mass/Vol] 26 mg/dL High 7.0 - 18.0 mg/dL [facility] Urea nitrogen/Creatinine [Mass ratio] 14.9 mg/mg [facility] No Panel InformationOrdered By: Radiologist Radiology on 06-04-2024 [facility] Work Phone: PELVIS LTDon 06-04-2024 * * *Final Report* * * DATE OF EXAM: Jun 04 2024 11:39AM [place] [id number] [facility] PELVIS LTD / PROCEDURE REASON: Unilateral inguinal hernia without obstruction or gangrene, recurrence not speci * * * * Physician Interpretation * * * * MSK_US RIGHT INGUINAL HERNIA ULTRASOUND: CLINICAL INFORMATION: Unilateral inguinal hernia without obstruction or gangrene, recurrence not specified TECHNIQUE: Richardson-scale real-time ultrasound of the medial hip and groin with dynamic imaging and power Doppler examination was performed. Images were saved to the permanent image archive. v9. COMPARISON: None FINDINGS: HERNIA EVALUATION: There is pelvic ascites which extends through the inguinal canal and distally along the spermatic cord. This does not significantly change with Valsalva maneuver. No discrete fat or bowel herniation is seen. No femoral hernia. INGUINAL LIGAMENT: Normal in appearance. IMPRESSION: Extension of pelvic ascites through the inguinal canal and distally along the spermatic cord. No fat or bowel containing inguinal hernia. 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: [facility] Transcribe Date/Time: Jun 04 2024 1:11P Dictated by : SONNY TRAN MD This examination was interpreted and the report reviewed and electronically signed by: SONNY TRAN MD on Jun 04 2024 2:55PM EST [id number]^AGFA_IDC^SI^ACN [facility], Radiologi MD lorenzo - 06/04/2024 * * *Final Report* * * DATE OF EXAM: Jun 04 2024 11:39AM [facility] [[email or web address]] [id number] [facility] PELVIS LTD / PROCEDURE REASON: Unilateral inguinal hernia without obstruction or gangrene, recurrence not speci * * * * Physician Interpretation * * * * MSK_US RIGHT INGUINAL HERNIA ULTRASOUND: CLINICAL INFORMATION: Unilateral inguinal hernia without obstruction or gangrene, recurrence not specified TECHNIQUE: Richardson-scale real-time ultrasound of the medial hip and groin with dynamic imaging and power Doppler examination was performed. Images were saved to the permanent image archive. v9. COMPARISON: None FINDINGS: HERNIA EVALUATION: There is pelvic ascites which extends through the inguinal canal and distally along the spermatic cord. This does not significantly change with Valsalva maneuver. No discrete fat or bowel herniation is seen. No femoral hernia. INGUINAL LIGAMENT: Normal in appearance. IMPRESSION: Extension of pelvic ascites through the inguinal canal and distally along the spermatic cord. No fat or bowel containing inguinal hernia. 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: [facility] Transcribe Date/Time: Jun 04 2024 1:11P Dictated by : SONNY TRAN MD This examination was interpreted and the report reviewed and electronically signed by: SONNY TRAN MD on Jun 04 2024 2:55PM EST [id number]^[email or web address]^SI^ACN [facility] Radiology Study observation (narrative) [facility] US Pelvis limitedon 06-04-19 IMPRESSION: Extension of pelvic ascites through the inguinal canal and distally along the spermatic cord. No fat or bowel containing inguinal hernia. 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: [facility] Transcribe Date/Time: Jun 04 2024 1:11P Dictated by : SONNY TRAN MD This examination was interpreted and the report reviewed and electronically signed by: SONNY TRAN MD on Jun 04 2024 2:55PM EST DIVISION OF RADIOLOGY * * *Final Report* * * DATE OF EXAM: Jun 04 2024 11:39AM [facility] [[email or web address]] [employer] / PROCEDURE REASON: Unilateral inguinal hernia without obstruction or gangrene, recurrence not speci * * * * Physician Interpretation * * * * MSK_US RIGHT INGUINAL HERNIA ULTRASOUND: CLINICAL INFORMATION: Unilateral inguinal hernia without obstruction or gangrene, recurrence not specified TECHNIQUE: Richardson-scale real-time ultrasound of the medial hip and groin with dynamic imaging and power Doppler examination was performed. Images were saved to the permanent image archive. [id number]. COMPARISON: None FINDINGS: HERNIA EVALUATION: There is pelvic ascites which extends through the inguinal canal and distally along the spermatic cord. This does not significantly change with Valsalva maneuver. No discrete fat or bowel herniation is seen. No femoral hernia. INGUINAL LIGAMENT: Normal in appearance. DIVISION OF RADIOLOGY Provider, [facility] - 06/04/2024 * * *Final Report* * * DATE OF EXAM: Jun 04 2024 11:39AM [facility] [[email or web address]] [employer] PELVIS [employer]TD / PROCEDURE REASON: Unilateral inguinal hernia without obstruction or gangrene, recurrence not speci * * * * Physician Interpretation * * * * MSK_US RIGHT INGUINAL HERNIA ULTRASOUND: CLINICAL INFORMATION: Unilateral inguinal hernia without obstruction or gangrene, recurrence not specified TECHNIQUE: Richardson-scale real-time ultrasound of the medial hip and groin with dynamic imaging and power Doppler examination was performed. Images were saved to the permanent image archive. [id number]. COMPARISON: None FINDINGS: HERNIA EVALUATION: There is pelvic ascites which extends through the inguinal canal and distally along the spermatic cord. This does not significantly change with Valsalva maneuver. No discrete fat or bowel herniation is seen. No femoral hernia. INGUINAL LIGAMENT: Normal in appearance. IMPRESSION IMPRESSION: Extension of pelvic ascites through the inguinal canal and distally along the spermatic cord. No fat or bowel containing inguinal hernia. 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: [facility] Transcribe Date/Time: Jun 04 2024 1:11P Dictated by : SONNY TRAN MD This examination was interpreted and the report reviewed and electronically signed by: SONNY TRAN MD on Jun 04 2024 2:55PM EST [facility] Radiology Study observation (narrative) [facility] BODY FLUID CELL COUNTOrdered By: Billie Wilson on 05-31-2024 RBC Manual cnt (Body fld) [#/Vol] /uL NINF - 2000 /uL [facility] Specimen source Nom (Body fld) Abdomen [facility] WBC Manual cnt (Body fld) [#/Vol] 119 /uL NINF - 1000 /uL [facility] BODY FLUID CELL COUNTon 05-31-2024 [facility] CLARITY SPEC Slightly Cloudy Abnormal Clear [facility] COLOR FLD Yellow Yellow [facility] RBC # FLD MANUAL <2000 NINF - 2000 /uL [facility] SPECIMEN SOURCE FLD Abdomen [facility] WBC # FLD MANUAL 119 /uL NINF - 1000 /uL [facility] Healthcare Specimen Type: FLUID SPECIMEN Ordering Facility: [facility] Address: [address] [place] [address] Original Ordering Provider: KATHY VAUGHN [facility] Guidance for paracentesis an d insertion of tube of Peritoneumon 05-31-2024 Name: Loyd Traore Shawna powell Patient presents for a Paracentesis. Indication for Procedure: Ascites INFORMED CONSENT Loyd Blandon Medical Record: [id number] Procedure: Paracentesis The risks, benefits and anticipated outcomes of the procedure, the risks and benefits of the alternatives to the procedure and the roles and tasks of the personnel to be involved were discussed with the patient and the patient consents to the procedure and agrees to proceed. I have verified that consent has been obtained for this procedure. Kathy Vaughn APRN.CNP May 31, 2024 11:03 AM Dept of GASTROENTEROLOGY [employer] / SAFETY CHECKLIST Procedure to be performed: Paracentesis Sign in Communication: Completed Time Out: Team Confirms the Correct Patient, Correct Procedure, Correct Site and Site Marking, Correct Position (if applicable), Prep and Dry Time (if applicable). Time: See Nursing Documentation Affirmation of Time Out: YES Sign Out Discussion: Completed Kathy Vaughn APRN.CNP Procedure performed by Kathy Vaughn APRN.CNP Medication: 2% Lidocaine 10cc The patient was placed in the supine position. A pocket of fluid suitable for paracentesis was marked in the left abdomen under ultrasound guidance. The skin and subcutaneous tissue was anesthetized with local anesthetic. A 15 guage Richards Needle was inserted into the abdomen and 3.2 liters were removed. The fluid was sent to the Lab for analysis. There were no immediate complications associated with the procedure. Kathy Vaughn APRN.CNP [employer] Guidance for paracentesis an d insertion of tube of PeritoneumOrdered By: Kathy Vaughn on 05-31-2024 [facility] Work Phone: Radiology Study observation (narrative) [facility] Work Phone: Laboratory - Specimen inform ationOrdered By: Billie Wilson on 05-31-2024 Clarity (Unsp spec) Slightly Cloudy Abnormal Clear [facility] Color (Body fld) Yellow Yellow [facility] No Panel Informationon 05-31 Interpretation and review of laboratory results Abnormal [facility] US PARACENTESIS (POC) DDI US E ONLYon 05-31-2024 [facility] XR Chest PA and Lateralon IMPRESSION: Moderate to large right-sided pleural effusion, increased in size compared to the prior chest radiograph exam. Adjacent opacity at the right lung base is probably due to atelectasis although superimposed pneumonia/aspiration is possible. Trace left pleural effusion. 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: [facility] Transcribe Date/Time: May 23 2024 1:39P Dictated by : MORALES CARROLL MD This examination was interpreted and the report reviewed and electronically signed by: MORALES CARROLL MD on May 23 2024 1:41PM [facility] DIVISION OF RADIOLOGY * * *Final Report* * * DATE OF EXAM: May 23 2024 10:15AM AOX [id number] - XR CHEST 2V FRONTAL/LAT / PROCEDURE REASON: Dyspnea, unspecified type * * * * Physician Interpretation * * * * EXAMINATION: CHEST RADIOGRAPH (2 VIEW FRONTAL & LATERAL) CLINICAL HISTORY: Dyspnea, unspecified type MQ: [id number]_6 EXAM DATE/TIME: 05/23/2024 10:15 AM COMPARISON: Chest radiograph dated 05/01/2024; chest CT dated 04/29/2024 RESULT: Lines, tubes, and devices: None. Lungs and pleura: A moderate to large right-sided pleural effusion has increased in size compared to the prior chest radiograph exam. Adjacent opacity at the right lung base has probably increased and is most commonly due to atelectasis. There is likely a trace left pleural effusion. No pulmonary edema. No pneumothorax. Cardiomediastinal silhouette: Likely stable cardiomediastinal silhouette although not well assessed as the right heart border is now obscured. The thoracic aorta is tortuous and atherosclerotic. Bones and soft tissues: Clips overlie the upper abdomen. DIVISION OF RADIOLOGY Provider, [facility] - 05/23/2024 * * *Final Report* * * DATE OF EXAM: May 23 2024 10:15AM AOX 5291 - XR CHEST 2V FRONTAL/LAT / PROCEDURE REASON: Dyspnea, unspecified type * * * * Physician Interpretation * * * * EXAMINATION: CHEST RADIOGRAPH (2 VIEW FRONTAL & LATERAL) CLINICAL HISTORY: Dyspnea, unspecified type MQ: XC2_6 EXAM DATE/TIME: 05/23/2024 10:15 AM COMPARISON: Chest radiograph dated 05/01/2024; chest CT dated 04/29/2024 RESULT: Lines, tubes, and devices: None. Lungs and pleura: A moderate to large right-sided pleural effusion has increased in size compared to the prior chest radiograph exam. Adjacent opacity at the right lung base has probably increased and is most commonly due to atelectasis. There is likely a trace left pleural effusion. No pulmonary edema. No pneumothorax. Cardiomediastinal silhouette: Likely stable cardiomediastinal silhouette although not well assessed as the right heart border is now obscured. The thoracic aorta is tortuous and atherosclerotic. Bones and soft tissues: Clips overlie the upper abdomen. IMPRESSION IMPRESSION: Moderate to large right-sided pleural effusion, increased in size compared to the prior chest radiograph exam. Adjacent opacity at the right lung base is probably due to atelectasis although superimposed pneumonia/aspiration is possible. Trace left pleural effusion. 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: PSCB Transcribe Date/Time: May 23 2024 1:39P Dictated by : MORALES CARROLL MD This examination was interpreted and the report reviewed and electronically signed by: MORALES CARROLL MD on May 23 2024 1:41PM EST [facility] Radiology Study observation (narrative) [facility] XR Chest PA and LateralOrder ed By: Ccf Provider on 05-23-2024 [facility] ALL CBC WITH AUTO DIFFon BASOPHILS ABSOLUTE AUTO 0.1 [facility] Basophils/100 WBC (Bld) 1.1 % 0.2 - 2.0 % [facility] Eosinophils/100 WBC (Bld) 5.4 % 0.9 - 7.0 % [facility] Erythrocyte distribution width (RBC) [Ratio] 14.2 % 11.0 - 15.0 % [facility] Hematocrit (Bld) [Volume fraction] 37.2 % Low 42.0 - 54.0 % [facility] Hemoglobin (Bld) [Mass/Vol] 12.7 g/dL Low 14.0 - 18.0 g/dL [facility] IMMATURE GRANULOCYTES ABS AUTO 0.04 High [facility] Immature granulocytes/100 WBC (Bld) 0.8 % High 0.0 - 0.5 % [facility] Interpretation and review of laboratory results Abnormal [facility] LYMPHOCYTES ABSOLUTE AUTO 0.7 Low [facility] Lymphocytes/100 WBC (Bld) 12.5 % Low 20.5 - 60.0 % [facility] MCH (RBC) [Entitic mass] 34.4 pg High 25.9 - 34.0 pg [facility] MCHC (RBC) [Mass/Vol] 34.1 g/dL 29.9 - 35.2 g/dL [facility] MCV (RBC) [Entitic vol] 100.8 fL High 80.0 - 94.0 fL [facility] MONOCYTES ABSOLUTE AUTO 0.8 [facility] Monocytes/100 WBC (Bld) 14.8 % High 1.7 - 12.0 % [facility] NEUTROPHILS ABSOLUTE AUTO 3.4 [facility] Neutrophils/100 WBC (Bld) 65.4 % 43.0 - 75.0 % [facility] Platelet mean volume (Bld) [Entitic vol] 10.5 fL 9.5 - 13.5 fL [facility] EO # 0.3 [facility] PLT 167 [facility] RBC 3.69 Low [facility] WBC 5.2 [facility] CLINISYNC [facility] Orders Onlyon 05-08-2024 Orders Only [id number] Ambrosio Blandon emma 1955 M Date Provider Department Center 05/08/2024 1065-JOSH JANE [facility] No family history on file Normal [facility] Orders Only [id number] Jamia,Ambrosio emma 1955 M Date Provider Department Center 05/08/202406597-WEZTWRENARD HAZEL [facility] No family history on file Normal [facility] ALBUMIN, BODY FLUIDOrdered B y: Tejal Kidd on 05-02-2024 Albumin (Body fld) [Mass/Vol] 0.4 g/dL See Comment [facility] Comment on above: Body Fluid Albumin m ay be used in classifying ascitic fluid into [...] document C49A. JOEL Murrell: Clinical Laboratory Standards [place]: 2007. 2. Patience URIOSTEGUI. Serum to ascites albumin gradient. UpToDate. 2015. Accessed on July 29, 2015. This test was developed, and its performance characteristics determined by the [facility] Department of Pathology and Laboratory Medicine. It has not been cleared or approved by the FDA. The [facility] Department of Pathology and Laboratory Medicine is regulated under CLIA as qualified to perform high-complexity testing. This test is used for clinical purposes. It should not be regarded as investigational or for research. AMYLASE, BODY FLUIDon 2024 Amylase (Body fld) [Catalytic activity/Vol] 12 U/L See Comment [facility] Comment on above: PLEURAL FLUIDS: Amylase measurement in pleural fluid is considered a useful test for detecting amylase-rich pleural effusions, which may be caused by exudative conditions associated with pancreatitis, esophageal rupture, malignancy, pneumonia, and liver cirrhosis. A ratio of pleural fluid amylase to a concurrent serum amylase >1 is defined as an amylase-rich pleural effusion. PERITONEAL FLUIDS AND DRAINAGE FLUIDS: Pancreatic damage causes extravasation of amylase from the exocrine cells into the peritoneal space. In cases of pancreatitis, fluid amylase should be at least several-fold times higher in fluid of pancreatic origin compared to concurrent serum amylase values. PANCREATIC CYST FLUID: Pancreatic cyst fluid amylase may aid in characterizing tumors and should be interpreted along with other clinical and laboratory information. References: 1. Sirisha MUNIZ, Jose Roberto Guardado. Body fluid analysis: clinical utility and applicability of published studies to guide interpretation of todays laboratory testing in serous fluids. Crit Rev Clin Lab Sci, 2013;50(4-5):107-124. 2. CLSI. Analysis of Body Fluids in Clinical Chemistry; Approved Guideline. CLSI document C49-A. Handy PA: Clinical Laboratory Standards [place]; 2007. 3. Riky QUIROS, Mckinley HERNANDEZ, Rose DJ. Use of cyst fluid CEA, CA19-9, and amylase for evaluation of pancreatic lesions. Clinical Biochemistry. 2009;42:7497-5186. This test was developed, and its performance characteristics determined by the [facility] Department of Pathology and Laboratory Medicine. It has not been cleared or approved by the FDA. The [facility] Department of Pathology and Laboratory Medicine is regulated under CLIA as qualified to perform high-complexity testing. This test is used for clinical purposes. It should not be regarded as investigational or for research. Albumin (Body fld) [Mass/Vol ]Ordered By: Tejal Kidd on 01-16-2025 Fluid Nom (Body fld) ASCITES FLUID C [facility] Amylase (Body fld) [Catalyti c activity/Vol]on 05-02-2024 Fluid Nom (Body fld) ASCITES FLUID C [facility] BODY FLUID CELL COUNTOrdered By: Austin Moore on 05-01-2024 Clarity (Unsp spec) Clear Clear [facility] Clarity (Unsp spec) Not Indicated [facility] Color (Body fld) Yellow Yellow [facility] Color (Body fld) Not Indicated Yellow [facility] RBC Manual cnt (Body fld) [#/Vol] /uL NINF - 2000 /uL [facility] Specimen source Nom (Body fld) Abdomen [facility] WBC Manual cnt (Body fld) [#/Vol] 111 /uL NINF - 1000 /uL [facility] Guidance for paracentesis an d insertion of tube of Peritoneumon 05-01-2024 Name: oLyd powell Patient presents for a Paracentesis. Indication for Procedure: Ascites INFORMED CONSENT Loyd Blandon Medical Record: [id number] Procedure: Paracentesis The risks, benefits and anticipated outcomes of the procedure, the risks and benefits of the alternatives to the procedure and the roles and tasks of the personnel to be involved were discussed with the patient and the patient consents to the procedure and agrees to proceed. I have verified that consent has been obtained for this procedure. Rosalinda Benoit APRN.CNP May 01, 2024 2:21 PM Dept of GASTROENTEROLOGY UNIVERSAL PROTOCOL / SAFETY CHECKLIST Procedure to be performed: Paracentesis Sign in Communication: Completed Time Out: Team Confirms the Correct Patient, Correct Procedure, Correct Site and Site Marking, Correct Position (if applicable), Prep and Dry Time (if applicable). Time: See Nursing Documentation Affirmation of Time Out: N/A Sign Out Discussion: Completed Rosalinda Benoit APRN.CNP Procedure performed by Rosalinda Benoit APRN.CNP Medication: 2% Lidocaine 10cc The patient was placed in the supine position. A pocket of fluid suitable for paracentesis was marked in the left abdomen under ultrasound guidance. The skin and subcutaneous tissue was anesthetized with local anesthetic. A 15 guage Richards Needle was inserted into the abdomen and 5.3 liters were removed. The fluid was sent to the Lab for analysis. There were no immediate complications associated with the procedure. Rosalinda Benoit APRN.WATCH REPAIRER AP[employer]ENTICE [employer]ATION [facility] Radiology Study observation (narrative) [facility] PROTEIN, BODY FLUIDon 2024 Protein (Body fld) [Mass/Vol] 0.9 g/dL See Comment [facility] Comment on above: Serous fluids: Effus ions are the accumulation of clinically detected fluid [...] document C49A. JOEL Murrell: Clinical Laboratory Standards [place]: 2007. Protein (Body fld) [Mass/Vol ]on 05-01-2024 [facility] US PARACENTESIS (POC) DDI US E ONLYon 05-01-[address] [facility] [address] Liver W contrast Syed IMPRESSION: MORPHOLOGIC FINDINGS OF CIRRHOSIS AND PORTAL HYPERTENSION. 1.0 CM LI-RADS 5/OPTN 5 LESION IN THE DOME OF SEGMENT VIII WITHOUT TUMOR THROMBUS. NO EVIDENCE OF METASTATIC DISEASE. MASSIVE ASCITES. MASSIVE RIGHT PLEURAL EFFUSION WITH AT LEAST SEGMENTAL RIGHT LUNG COLLAPSE. 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: [facility] Transcribe Date/Time: Apr 29 2024 9:30P Dictated by : MORALES ADAMS MD This examination was interpreted and the report reviewed and electronically signed by: MORALES ADAMS MD on Apr 29 2024 11:09PM [facility] DIVISION OF RADIOLOGY * * *Final Report* * * DATE OF EXAM: Apr 29 2024 5:02PM [facility] [place] LIVER W IVCON / PROCEDURE REASON: multiple diagnoses * * * * Physician Interpretation * * * * EXAMINATION: CT ABDOMEN WITH IV CONTRAST (LIVER) CLINICAL HISTORY: Cirrhosis with reported liver lesion on prior study. TECHNIQUE: Multiphase imaging of the abdomen was performed utilizing IV contrast. Contrast: IV: 125 ml of Omnipaque 350 Oral: none CT Radiation dose: Integrated Dose-length product (DLP) for this visit = 1333 mGy*cm. CT Dose Reduction Employed: Automated exposure control (AEC) COMPARISON: None. RESULT: Liver: Cirrhotic liver morphology. Lesions: Location: Segment VIII Size: 1.0 cm (12:32), Prior size: N/A Arterial Phase Hyperenhancement (APHE): Nonrim APHE Wash-out: Yes - non-peripheral Enhancing Capsule: No or equivocal Threshold growth (50% or more growth in 6 months or less): N/A Ancillary features (optional) favoring malignancy or HCC: None or not applied Ancillary features (optional) favoring benignity: None or not applied LI-RADS Category: LR-5/OPTN class 5 (definitely HCC) [id number]: absent. No other focal hepatic lesion. Biliary: No bile duct dilation. Gallbladder is absent. Spleen: 10 cm (craniocaudally), normal. No mass. Pancreas: No mass or duct dilation. Adrenals: No mass. Kidneys: No mass, calculus or hydronephrosis. GI tract: No dilation or wall thickening. Stomach is collapsed with prominent appearance of the fundal wall likely related to congestion. Colonic diverticulosis. Lymph nodes: No abdominal lymphadenopathy. Mesentery/Peritoneum: Massive ascites. No mass. Retroperitoneum: No mass. Vasculature: - Abdominal aorta: Patent. Atherosclerotic calcifications without aneurysm. - Portal venous system (SMV, splenic vein, portal vein and branches): Patent. - Celiac and SMA: Patent. No stenosis. - Hepatic artery: Patent. Conventional anatomy with an accessory branch from the left gastric into the left lobe. - Hepatic veins: Patent. - Collaterals: Spontaneous splenorenal shunt: Absent Recanalized paraumbilical vein: Small Esophageal varices: Small Mesenteric portosystemic collaterals: Present Bones/Soft Tissues: No destructive osseous lesion. Lower thoracic vertebral body hemangioma (approximately T10). Lower thorax: Massive right pleural effusion with associated (at least) right lower lung collapse. Localizer images: Shaper And Presser image shows small volume of expanded lung in the right apex. DIVISION OF RADIOLOGY Provider, [facility] - 04/29/2024 * * *Final Report* * * DATE OF EXAM: Apr 29 2024 5:02PM [facility] [place] LIVER W IVCON / PROCEDURE REASON: multiple diagnoses * * * * Physician Interpretation * * * * EXAMINATION: CT ABDOMEN WITH IV CONTRAST (LIVER) CLINICAL HISTORY: Cirrhosis with reported liver lesion on prior study. TECHNIQUE: Multiphase imaging of the abdomen was performed utilizing IV contrast. Contrast: IV: 125 ml of Omnipaque 350 Oral: none CT Radiation dose: Integrated Dose-length product (DLP) for this visit = 1333 mGy*cm. CT Dose Reduction Employed: Automated exposure control (AEC) COMPARISON: None. RESULT: Liver: Cirrhotic liver morphology. Lesions: Location: Segment VIII Size: 1.0 cm (12:32), Prior size: N/A Arterial Phase Hyperenhancement (APHE): Nonrim APHE Wash-out: Yes - non-peripheral Enhancing Capsule: No or equivocal Threshold growth (50% or more growth in 6 months or less): N/A Ancillary features (optional) favoring malignancy or HCC: None or not applied Ancillary features (optional) favoring benignity: None or not applied LI-RADS Category: LR-5/OPTN class 5 (definitely HCC) Xghjn-[id number]: absent. No other focal hepatic lesion. Biliary: No bile duct dilation. Gallbladder is absent. Spleen: 10 cm (craniocaudally), normal. No mass. Pancreas: No mass or duct dilation. Adrenals: No mass. Kidneys: No mass, calculus or hydronephrosis. GI tract: No dilation or wall thickening. Stomach is collapsed with prominent appearance of the fundal wall likely related to congestion. Colonic diverticulosis. Lymph nodes: No abdominal lymphadenopathy. Mesentery/Peritoneum: Massive ascites. No mass. Retroperitoneum: No mass. Vasculature: - Abdominal aorta: Patent. Atherosclerotic calcifications without aneurysm. - Portal venous system (SMV, splenic vein, portal vein and branches): Patent. - Celiac and SMA: Patent. No stenosis. - Hepatic artery: Patent. Conventional anatomy with an accessory branch from the left gastric into the left lobe. - Hepatic veins: Patent. - Collaterals: Spontaneous splenorenal shunt: Absent Recanalized paraumbilical vein: Small Esophageal varices: Small Mesenteric portosystemic collaterals: Present Bones/Soft Tissues: No destructive osseous lesion. Lower thoracic vertebral body hemangioma (approximately T10). Lower thorax: Massive right pleural effusion with associated (at least) right lower lung collapse. Localizer images: Shaper And Presser image shows small volume of expanded lung in the right apex. IMPRESSION IMPRESSION: MORPHOLOGIC FINDINGS OF CIRRHOSIS AND PORTAL HYPERTENSION. 1.0 CM LI-RADS 5/OPTN 5 LESION IN THE DOME OF SEGMENT VIII WITHOUT TUMOR THROMBUS. NO EVIDENCE OF METASTATIC DISEASE. MASSIVE ASCITES. MASSIVE RIGHT PLEURAL EFFUSION WITH AT LEAST SEGMENTAL RIGHT LUNG COLLAPSE. 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: PSCB Transcribe Date/Time: Apr 29 2024 9:30P Dictated by : MORALES ADAMS MD This examination was interpreted and the report reviewed and electronically signed by: MORALES ADAMS MD on Apr 29 2024 11:09PM EST [facility] Radiology Study observation (narrative) [facility] CT Liver W contrast IVOrdere d By: Ccf Provider on 04-29-2024 [facility] 36on 03-11-2024 36 The patient's h ad a concern regarding increasing Coreg dose to 6.25 mg in the morning as was discussed in the clinic the other day. She mentioned that after she did that, her had diarrhea so she had to go down to on the prior dose. I called the and explained to her that there is not a common side effect of beta-blockers. Also, the benefits of keeping him on the higher dose of Coreg if he tolerates it are better for portal hypertension and esophageal varices. verbalized understanding and she agreed to try the higher dose again and see if he tolerates it. Deny Simpson MD Gastroenterology Fellow Normal [facility] Telephoneon 03-11-2024 Telephone [phone] Ambrosio Blandon 1955 M Date Provider Department Center 03/11/2024 1514-DENY SIMPSON [facility] No family history on file Normal [facility] 37on 03-08-2024 37 Please increase the coreg dose to 6.25 mg in the am and 3.125 mg in the pm Do the Chest Xray now and if there are concerns for fluid accumulation, go to the ED Do the labs ordered today Normal [facility] CBC WITH AUTO DIFFERENTIALon 03-08-2024 Basophils (Bld) [#/Vol] 0.05 10*3/uL Normal 0.00-0.20 [facility] Comment on above: Performed By: #### L [id number] #### [facility] ([facility]AKER) [address] [place] [address] Basophils/100 WBC (Bld) 1.1 % High 0.0-1.0 [facility] Comment on above: Performed By: #### L [id number] #### [facility] ([facility]) [address] [place] [address] Eosinophils (Bld) [#/Vol] 0.22 10*3/uL Normal 0.00-0.50 [facility] Comment on above: Performed By: #### L [id number] #### [facility] ([facility]) [address] [place] [address] Eosinophils/100 WBC (Bld) 4.8 % Normal 0.0-6.0 [facility] Comment on above: Performed By: #### L [id number] #### [facility] ([facility]) [address] [place] [address] Erythrocyte distribution width (RBC) [Ratio] 16.4 % High 11.5-15.0 [facility] Comment on above: Performed By: #### L [id number] #### [facility] ([facility]) [address] [place] [address] ERYTHROCYTE MEAN CORPUSCULAR HEMOGLOBIN CONCENTRATION (G/DL) BY AUTOMATED 34.1 g/dL Normal 32.0-35.0 [facility] Comment on above: Performed By: #### L [id number] #### [facility] ([facility]) [address] [place] [address] Hematocrit (Bld) [Volume fraction] 37.5 % Low 39.0-55.0 [facility] Comment on above: Performed By: #### L [id number] #### [facility] (BEAKER) [address] [place] [address] Hemoglobin (Bld) [Mass/Vol] 12.8 g/dL Low 13.0-17.0 [facility] Comment on above: Performed By: #### L [id number] #### [facility] ([facility]) [address] [place] [address] Immature granulocytes (Bld) [#/Vol] 0.02 10*3/uL Normal 0.00-0.20 [facility] Comment on above: Performed By: #### L [id number] #### [facility] ([facility]) [address] [place] [address] Immature granulocytes/100 WBC (Bld) 0.4 % Normal 0.0-1.0 [facility] Comment on above: Performed By: #### L [id number] #### [facility] ([facility]) [address] [place] [address] Lymphocytes (Bld) [#/Vol] 0.71 10*3/uL Low 1.20-4.00 [facility] Comment on above: Performed By: #### L [id number] #### [facility] ([facility]) [address] [place] [address] Lymphocytes/100 WBC (Bld) 15.6 % Low 20.0-45.0 [facility] Comment on above: Performed By: #### L [id number] #### [facility] ([facility]) [address] [place] [address] MCH (RBC) [Entitic mass] 34.3 pg High 27.0-33.0 [facility] Comment on above: Performed By: #### L [id number] #### [facility] ([facility]) [address] [place] [address] MCV (RBC) [Entitic vol] 100.5 fL High 82.0-98.0 [facility] Comment on above: Performed By: #### L [id number] #### [facility] ([facility]) [address] [place] [address] Monocytes (Bld) [#/Vol] 0.57 10*3/uL Normal 0.10-1.00 [facility] Comment on above: Performed By: #### L [id number] #### [facility] ([facility]) [address] [place] [address] Monocytes/100 WBC (Bld) 12.5 % High 5.0-12.0 [facility] Comment on above: Performed By: #### L [id number] #### [facility] ([facility]) [address] [place] [address] Neutrophils (Bld) [#/Vol] 2.99 10*3/uL Normal 1.60-7.60 [facility] Comment on above: Performed By: #### L [id number] #### [facility] ([facility]) [address] [place] [address] Neutrophils/100 WBC (Bld) 65.6 % Normal 40.0-72.0 [facility] Comment on above: Performed By: #### L [id number] #### [facility] ([facility]) [address] [place] [address] NRBC (PER 100 WBCS) BY AUTOMATED COUNT 0.0 % Normal 0 [facility] Comment on above: Performed By: #### L [id number] #### [facility] ([facility]) [address] [place] [address] PLATELETS (10*3/UL) IN BLOOD AUTOMATED COUNT 150 10*3/uL Normal 150-400 [facility] Comment on above: Performed By: #### L [id number] #### [facility] ([facility]) [address] [place] [address] RBC (Bld) [#/Vol] 3.73 10*6/uL Low 4.20-5.70 [facility] Comment on above: Performed By: #### L [id number] #### [facility] ([facility]) [address] [address] WBC (Bld) [#/Vol] 4.56 10*3/uL Normal 4.00-10.60 [facility] Comment on above: Performed By: #### L [id number] #### [facility] (BEAKER) [address] [place] [address] COMPREHENSIVE METABOLIC PANE Mayito 03-08-2024 Albumin [Mass/Vol] 3.0 g/dL Low 3.5-5.7 [facility] Comment on above: Performed By: #### L [id number] ####[facility] (BEAKER)[address] [place] [address] ALP [Catalytic activity/Vol] 113 U/L High 34-104 [facility] Comment on above: Performed By: #### L [id number] ####[facility] (BEAKER)[address] [place] [address] ALT [Catalytic activity/Vol] 28 U/L Normal 7-52 [facility] Comment on above: Performed By: #### L [id number] ####[facility] (BEAKER)[address] [place] [address] Anion gap [Moles/Vol] 10 mmol/L Normal 7-20 [facility] Comment on above: Performed By: #### L [id number] ####[facility] (BEAKER)[address] [place] [address] AST [Catalytic activity/Vol] 48 U/L High 13-39 [facility] Comment on above: Performed By: #### L [id number] ####[facility] (BEAKER)[address] [place] [address] Bilirubin [Mass/Vol] 1.7 mg/dL High 0.3-1.0 [facility] Comment on above: Performed By: #### L [id number] ####[facility] (BEAKER)[address] [place] [address] Calcium [Mass/Vol] 8.8 mg/dL Normal 8.6-10.3 [facility] Comment on above: Performed By: #### L [id number] ####[facility] (BEAKER)[address] [place] [address] Chloride [Moles/Vol] 101 mmol/L Normal 98-107 [facility] Comment on above: Performed By: #### L [id number] ####[facility] (BEAKER)[address] [place] [address] CO2 [Moles/Vol] 24 mmol/L Normal 21-31 [facility] Comment on above: Performed By: #### L [id number] ####[facility] ([facility])[address] [place] [address] Creatinine [Mass/Vol] 1.20 mg/dL Normal 0.70-1.30 [facility] Comment on above: Performed By: #### L [id number] ####[facility] ([facility])[address] [place] [address] GLOMERULAR FILTRATION RATE ML/MIN/1.73 SQ M.PREDICTED 65.1 mL/min/1.73m*2 Normal >60.0 [facility] Comment on above: Result Comment: The [facility]???s estimated glomerular filtration rate (eGFR) will no [...] of individuals. Performed By: #### L [id number] ####[facility] ([facility])[address] [place] [address] Glucose [Mass/Vol] 184 mg/dL High 70-100 [facility] Comment on above: Performed By: #### L [id number] ####[facility] ([facility]AK[facility])[address] [place] [address] Potassium [Moles/Vol] 4.4 mmol/L Normal 3.5-5.1 [facility] Comment on above: Performed By: #### L [id number] ####[facility] ([facility])[address] [place] [address] Protein [Mass/Vol] 7.0 g/dL Normal 6.0-8.3 [facility] Comment on above: Performed By: #### L [id number] ####[facility] ([facility])[address] [place] [address] Sodium [Moles/Vol] 131 mmol/L Low 136-145 [facility] Comment on above: Performed By: #### L [id number] ####[facility] ([facility])[address] [place] [address] Urea nitrogen [Mass/Vol] 18 mg/dL Normal 7-25 [facility] Comment on above: Performed By: #### L [id number] ####[facility] ([facility])[address] [place] [address] UREA NITROGEN/CREATININE (MASS RATIO) IN SER/PLAS 15.0 Normal [facility] Comment on above: Performed By: #### L [id number] ####[facility] ([facility])[address] [place] [address] Labon 03-08-2024 Lab [id number] Ambrosio Blandon 1955 M Date Provider Department Center 03/08/2024 2244-[facility] MP LAB RESOURCE MP DRAW Medical Pavi No family history on file Normal [facility] Office Visiton 03-08-2024 Follow-up visit [id number] Ambrosio Blandon 1955 M Date Provider Department Center 03/08/2024 298-[facility] Medical Pavi No family history on file Level of Service:78900 ME OFFICE/OUTPATIENT ESTABLISHED HIGH MDM 40 MIN (GC) Reason for Visit and Comments: Follow-up [318966] Cirrhosis [239] Normal [facility] PROTIME-INRon 03-08-2024 INR IN PPP BY COAGULATION ASSAY 1.35 High 0.90-1.10 [facility] Comment on above: Result Comment: ACCC P [...] CHEST 1995;108:231S-246S. Performed By: #### L [id number] ####[facility] ([facility])[address] [place] [address] PROTHROMBIN TIME (PT) IN PPP BY COAGULATION ASSAY 16.6 Seconds High 12.3-14.8 [facility] Comment on above: Performed By: #### L [id number] ####[facility] ([facility])[address] [place] [address] AFB CULTUREon 02-20-2024 AFB CULTURE No growth at 42 days Normal [facility] Comment on above: Performed By: #### L [id number] ####[facility] ([facility])[address] [place] [address] AFB STAIN No acid fast bacilli seen Normal [facility] Comment on above: Performed By: #### L [id number] ####[facility] ([facility])[address] [place] [address] AMYLASE, BODY FLUIDon 2023 AMYLASE (U/L) IN BODY FLUID 18 U/L Normal [facility] Comment on above: Result Comment: The reference range and other method performance specifications have not been established for this test in fluids. the test result should be integrated into the clinical context for interpretation. Performed By: #### L [id number] ####[facility] ([facility])[address] [place] [address] BODY FLUID CELL DIFFERENTIAL on 02-20-2024 BASOPHILS TOTAL PER COUNTED LEUKOCYTES IN BODY FLUID BY MANUAL COUNT [facility] Comment on above: Order Comment: Diffe rential performed on cytospin Performed By: #### L [id number] ####[facility] ([facility])[address] [place] [address] CELLS COUNTED TOTAL (#) IN BODY FLUID 100 [facility] Comment on above: Order Comment: Diffe rential performed on cytospin Performed By: #### L [id number] ####[facility] ([facility])[address] [place] [address] EOSINOPHILS TOTAL PER COUNTED LEUKOCYTES IN BODY FLUID BY MANUAL COUNT [facility] Comment on above: Order Comment: Diffe rential performed on cytospin Performed By: #### L [id number] ####[facility] ([facility])[address] [place] [address] LYMPHOCYTES TOTAL PER COUNTED LEUKOCYTES IN BODY FLUID BY MANUAL COUNT 79 [facility] Comment on above: Order Comment: Diffe rential performed on cytospin Performed By: #### L [id number] ####[facility] ([facility])[address] [place] [address] MESOTHELIAL CELLS TOTAL PER COUNTED LEUKOCYTES IN BODY FLUID BY MANUAL COUN 20 [facility] Comment on above: Order Comment: Diffe rential performed on cytospin Performed By: #### L [id number] ####[facility] ([facility])[address] [place] [address] MONOCYTES+MACROPHAGES TOTAL PER COUNTED LEUKOCYTES IN BODY FLUID BY MANUAL [facility] Comment on above: Order Comment: Diffe rential performed on cytospin Performed By: #### L [id number] ####[facility] ([facility])[address] [place] [address] NEUTROPHILS TOTAL PER COUNTED LEUKOCYTES IN BODY FLUID BY MANUAL COUNT 1 [facility] Comment on above: Order Comment: Diffe rential performed on cytospin Performed By: #### L [id number] ####[facility] ([facility])[address] [place] [address] OTHER CELLS BODY FLUID (MANUAL) Normal [facility] Comment on above: Order Comment: Tae wright performed on cytospin Performed By: #### L [id number] ####[facility] ([facility])[address] [address] BODY FLUID CULTUREon 024 Bacteria identified Cx Nom (Unsp spec) No growth at 5 days Normal [facility] Comment on above: Performed By: #### L [id number] ####[facility] ([facility])[address] [place] [address] GRAM STAIN RESULT Normal [facility] Comment on above: Result Comment: Poly morphonuclear leukocytes No organisms seen Cytocentrifuge sample Performed By: #### L [id number] ####[facility] ([facility])[address] [place] [address] CBCon 02-20-2024 Erythrocyte distribution width (RBC) [Ratio] 16.0 % High 11.5-15.0 [facility] Comment on above: Performed By: #### L [id number] ####[facility] ([facility])[address] [place] [address] ERYTHROCYTE MEAN CORPUSCULAR HEMOGLOBIN CONCENTRATION (G/DL) BY AUTOMATED 34.2 g/dL Normal 32.0-35.0 [facility] Comment on above: Performed By: #### L [id number] ####[facility] ([facility])[address] [place] [address] Hematocrit (Bld) [Volume fraction] 33.6 % Low 39.0-55.0 [facility] Comment on above: Performed By: #### L [id number] ####[facility] ([facility])[address] [place] [address] Hemoglobin (Bld) [Mass/Vol] 11.5 g/dL Low 13.0-17.0 [facility] Comment on above: Performed By: #### L [id number] ####[facility] ([facility])[address] [place] [address] IMMATURE PLATELET FRACTION % 1.7 % Normal 0.8-6.3 [facility] Comment on above: Performed By: #### L [id number] ####[facility] ([facility])[address] [place] [address] MCH (RBC) [Entitic mass] 34.0 pg High 27.0-33.0 [facility] Comment on above: Performed By: #### L [id number] ####[facility] ([facility])[address] [place] [address] MCV (RBC) [Entitic vol] 99.4 fL High 82.0-98.0 [facility] Comment on above: Performed By: #### L [id number] ####[facility] ([facility])[address] [place] [address] PLATELETS (10*3/UL) IN BLOOD AUTOMATED COUNT 119 10*3/uL Low 150-400 [facility] Comment on above: Performed By: #### L [id number] ####[facility] ([facility])[address] [place] [address] RBC (Bld) [#/Vol] 3.38 10*6/uL Low 4.20-5.70 [facility] Comment on above: Performed By: #### L [id number] ####[facility] ([facility])[address] [place] [address] WBC (Bld) [#/Vol] 4.26 10*3/uL Normal 4.00-10.60 [facility] Comment on above: Performed By: #### L [id number] ####[facility] ([facility])[address] [place] [address] CHOLESTEROL, BODY FLUIDon CHOLESTEROL (MG/DL) IN BODY FLUID <25 Normal [facility] Comment on above: Performed By: #### L [id number] #### [facility] ([facility]) [address] [place] [address] COMPREHENSIVE METABOLIC PANE Mayito 02-20-2024 Albumin [Mass/Vol] 2.6 g/dL Low 3.5-5.7 [facility] Comment on above: Performed By: #### L [id number] #### [facility] ([facility]) [address] [place] [address] ALP [Catalytic activity/Vol] 89 U/L Normal 34-104 [facility] Comment on above: Performed By: #### L [id number] #### [facility] ([facility]) [address] [place] [address] ALT [Catalytic activity/Vol] 20 U/L Normal 7-52 [facility] Comment on above: Performed By: #### L [id number] #### [facility] ([facility]) [address] [place] [address] Anion gap [Moles/Vol] 8 mmol/L Normal 7-20 [facility] Comment on above: Performed By: #### L [id number] #### [facility] ([facility]) [address] [place] [address] AST [Catalytic activity/Vol] 35 U/L Normal 13-39 [facility] Comment on above: Performed By: #### L [id number] #### [facility] ([facility]) [address] [place] [address] Bilirubin [Mass/Vol] 1.5 mg/dL High 0.3-1.0 [facility] Comment on above: Performed By: #### L [id number] #### [facility] ([facility]) [address] [place] [address] Calcium [Mass/Vol] 8.4 mg/dL Low 8.6-10.3 [facility] Comment on above: Performed By: #### L [id number] #### [facility] ([facility]) [address] [place] [address] Chloride [Moles/Vol] 105 mmol/L Normal 98-107 [facility] Comment on above: Performed By: #### L [id number] #### [facility] ([facility]) [address] [place] [address] CO2 [Moles/Vol] 25 mmol/L Normal 21-31 [facility] Comment on above: Performed By: #### L [id number] #### [facility] ([facility]) [address] [place] [address] Creatinine [Mass/Vol] 1.09 mg/dL Normal 0.70-1.30 [facility] Comment on above: Performed By: #### L [id number] #### [facility] ([facility]) [address] [place] [address] GLOMERULAR FILTRATION RATE ML/MIN/1.73 SQ M.PREDICTED 73.0 mL/min/1.73m*2 Normal >60.0 [facility] Comment on above: Result Comment: The [facility]???s estimated glomerular filtration rate (eGFR) will no [...] of individuals. Performed By: #### L [id number] #### [facility] ([facility]) [address] [place] [address] Glucose [Mass/Vol] 103 mg/dL High 70-100 [facility] Comment on above: Performed By: #### L [id number] #### [facility] ([facility]) [address] [place] [address] Potassium [Moles/Vol] 4.3 mmol/L Normal 3.5-5.1 [facility] Comment on above: Performed By: #### L [id number] #### [facility] ([facility]) [address] [place] [address] Protein [Mass/Vol] 6.0 g/dL Normal 6.0-8.3 [facility] Comment on above: Performed By: #### L [id number] #### [facility] ([facility]) [address] [place] [address] Sodium [Moles/Vol] 134 mmol/L Low 136-145 [facility] Comment on above: Performed By: #### L [id number] #### [facility] ([facility]) [address] [place] [address] Urea nitrogen [Mass/Vol] 20 mg/dL Normal 7-25 [facility] Comment on above: Performed By: #### L [id number] #### [facility] ([facility]) [address] [place] [address] UREA NITROGEN/CREATININE (MASS RATIO) IN SER/PLAS 18.3 Normal [facility] Comment on above: Performed By: #### L [id number] #### [facility] ([facility]) [address] [place] [address] GLUCOSE, BODY FLUIDon 2023 GLUCOSE (MG/DL) IN BODY FLUID 130 mg/dL Normal [facility] Comment on above: Result Comment: The reference range and other method performance specifications have not been established for this test in fluids. the test result should be integrated into the clinical context for interpretation. Performed By: #### L [id number] ####[facility] ([facility])[address] [place] [address] HPon 02-20-2024 HP H&P reviewed. The joel jones was examined and there are no changes to the H&P. Normal [facility] LACTATE DEHYDROGENASEon LACTATE DEHYDROGENASE (U/L) IN SER/PLAS BY LAC->PYR RXN 161 U/L Normal 140-271 [facility] Comment on above: Performed By: #### L [id number] #### [facility] ([facility]) [address] [place] [address] LACTATE DEHYDROGENASE, BODY FLUIDon 02-20-2024 LACTATE DEHYDROGENASE (U/L) IN BODY FLUID BY LAC->PYR 42 U/L Normal [facility] Comment on above: Result Comment: The reference range and other method performance specifications have not been established for this test in fluids. the test result should be integrated into the clinical context for interpretation. Performed By: #### L [id number] #### [facility] ([facility]) [address] [place] [address] NON-BRAKE LINING FINISHER CYTOLOGY - CELLULAR EXAMon 02-20-2024 LAB AP CASE REPORT Normal [facility] Comment on above: Result Comment: Non- gynecologic Cytology Case: [id number] Authorizing Provider: Aston Conner MD Collected: 02/20/2024 1014 Ordering Location: [address] Surgery Received: 02/20/2024 1208 Pathologist: Shireen Pat MD Specimen: Pleural fluid, right, collected per pulmonary resident Performed By: #### L [id number] ####[facility] ([facility])[address] [place] [address] LAB AP CLINICAL INFORMATION [facility] Comment on above: Result Comment: Pleu ral effusion Performed By: #### L [id number] ####[facility] ([facility])[address] [place] [address] LAB AP DIAGNOSIS COMMENT While no malignancy is identified in this sample, the specimen is hypocellular. Of note, only 18 mL of pleural fluid specimen was received in the lab, of which 5 mL was available for cytology testing. A specimen volume of at least 200 mL is recommended for cytology when available. [facility] Comment on above: Performed By: #### L [id number] ####[facility] ([facility])[address] [place] [address] LAB AP GROSS DESCRIPTION [facility] Comment on above: Result Comment: 5 mL clear, yellow fluid Performed By: #### L [id number] ####[facility] ([facility])[address] [place] [address] LAB AP REPORT FINAL DIAGNOSIS NARRATIVE [facility] Comment on above: Result Comment: A. P leural fluid, right: - Negative for malignancy. - Hypocellular specimen. See comment. Performed By: #### L [id number] ####[facility] ([facility])[address] [place] [address] NURSNOTEon 02-20-2024 NURSNOTE All positioning john sabrina removed pt remains supine. Normal [facility] PATHOLOGY REVIEWon PATHOLOGY REVIEW Electronically anibal d by Kaylen Valderrama MD on 02/22/24 at 5:43 PM. Normal [facility] Comment on above: Performed By: #### L [id number] ####[facility] ([facility])[address] [place] [address] POCT GLUCOSE METER UNSOLICIT ED RESULTSon 02-20-2024 Glucose [Mass/Vol] 94 mg/dL Normal 70-105 [facility] Comment on above: Order Comment: Waive d Testing in the ED is performed under the ED CLIA certificate #[id number]. Result Comment: skir by Performed By: #### L [id number] ####[facility] ([facility])[address] [place] [address] PROTEIN, BODY FLUIDon 2023 Protein (Body fld) [Mass/Vol] g/dL Normal [facility] Comment on above: Result Comment: The reference range and other method performance specifications have not been established for this test in fluids. the test result should be integrated into the clinical context for interpretation. Performed By: #### L [id number] ####[facility] ([facility])[address] [place] [address] PROTEIN, TOTALon 02-20-2024 Protein [Mass/Vol] 6.4 g/dL Normal 6.0-8.3 [facility] Comment on above: Performed By: #### L [id number] #### [facility] ([facility]) [address] [place] [address] PROTIME-INRon 02-20-2024 INR IN PPP BY COAGULATION ASSAY 1.35 High 0.90-1.10 [facility] Comment on above: Result Comment: ACCC P [...] CHEST 1995;108:231S-246S. Performed By: #### L [id number] ####[facility] ([facility])[address] [place] [address] PROTHROMBIN TIME (PT) IN PPP BY COAGULATION ASSAY 16.6 Seconds High 12.3-14.8 [facility] Comment on above: Performed By: #### L [id number] ####[facility] ([facility])[address] [place] [address] TRIGLYCERIDES, BODY FLUIDon 02-20-2024 TRIGLYCERIDES (MG/DL) IN BODY FLUID 30 mg/dL Normal [facility] Comment on above: Performed By: #### L [id number] #### [facility] ([facility]) [address] [place] [address] 30on 02-19-2024 30 The patient is Moder [...] by Diane Zavala RN Outcome: Progressing Normal [facility] CONSULTon 02-19-2024 CONSULT ----- ----- Attestation signed by Milagro Sheehan MD at 02/20/2024 12:40 PM I saw and evaluated the patient. I reviewed the resident's/fellow's note and agree with the findings and plan documents in the resident's/fellow's note ----- Initial Gastroenterology/Hepatolo gy Consultation Note IDENTIFYING DATA PATIENT: Loyd Blandon ADMIT DATE: 02/19/2024 TIME OF EVALUATION: 02/19/2024 4:41 PM Reason for Consult: varices Admitting Physician: Irena Johnson MD HISTORY OF PRESENT ILLNESS Loyd Blandon is a 68 y.o. male with [...] by mouth two times daily. 11/08/23 11/07/24 Jason Miles MD furosemide (Lasix) 20 mg tablet Take [...] by mouth in the morning. 01/16/24 05/15/24 Renard Hazel MD lansoprazole (Prevacid) [address] capsule TAKE 1 CAPSULE BEFORE A MEAL TWICE DAILY FOR 30 DAYS Patient taking differently: Take 30 mg by mouth before breakfast. TAKE 1 CAPSULE BEFORE A MEAL TWICE DAILY FOR 30 DAYS 11/21/23 Jason Miles MD lisinopril 20 mg tablet 10/27/23 Historical [...] tablets (150 m (more content not included)... [facility] CONSULT ----- ----- Attestation signed by Aston Conner MD at 02/20/2024 11:12 AM Patient [...] plan thoracentesis early am Resume home medications Aston Conner MD Pulmonary and critical care ----- Pulmonology Consult Patient : Loyd Blandon : 1955 Location: No information available for this encounter. Attending: Irena Johnson MD Admit Date: 02/19/2024 Hospital Day: 0 Reason for Consult: Dyspnea, large right-sided pleural effusion. HPI: Loyd Blandon is a 68 y.o. male with [...] cirrhosis for which he follows up with [facility] gastroenterology. He has been struggling with recurrent ascites and has undergone multiple paracentesis over the past many weeks. He experiences dyspnea both at rest and over exertion for the past [address] imaging he was found to have large right-sided pleural effusion for which he underwent thoracentesis by club concierge at [facility]. Patient reports that his dyspnea got better/relieved for 1 day and he became symptomatic again after the fluid got reaccumulated. Today patient came to the [facility] hospital for an EGD he [...] file Years of (more content not included)... [facility] 02-19-2024 HP ----- ----- Attestation signed by Milagro Sheehan MD at 02/20/2024 12:40 PM I saw and evaluated the patient. I reviewed the resident's/fellow's note and agree with the findings and plan documents in the resident's/fellow's note ----- Initial Gastroenterology/Hepatolo gy Consultation Note IDENTIFYING DATA PATIENT: Loyd Blandon ADMIT DATE: 02/19/2024 TIME OF EVALUATION: 02/19/2024 4:41 PM Reason for Consult: varices Admitting Physician: Irena Johnson MD HISTORY OF PRESENT ILLNESS Loyd Blandon is a 68 y.o. male with [...] by mouth two times daily. 11/08/23 11/07/24 Jason Miles MD furosemide (Lasix) 20 mg tablet Take [...] by mouth in the morning. 01/16/24 05/15/24 Renard Hazel, MD lansoprazole (Prevacid) [address] capsule TAKE 1 CAPSULE BEFORE A MEAL TWICE DAILY FOR 30 DAYS Patient taking differently: Take 30 mg by mouth before breakfast. TAKE 1 CAPSULE BEFORE A MEAL TWICE DAILY FOR 30 DAYS 11/21/23 Jason Miles MD lisinopril 20 mg tablet 10/27/23 Historical [...] m (more content not included)... [facility] ----- ----- Attestation signed by Irena Johnson MD at 02/19/2024 10:30 AM I personally saw and examined the patient on the same date of service as fellow. I discussed the findings and therapeutic plan with the fellow. I agree with the documentation, except for any edits/updates below. ----- Gastroenterology History and Physical Note IDENTIFYING DATA PATIENT: Loyd Blandon HISTORY OF PRESENT ILLNESS Loyd Blandon is a 68 y.o. male with [...] by mouth two times daily. 11/08/23 11/07/24 Jason Miles MD furosemide (Lasix) 20 mg tablet Take [...] by mouth in the morning. 01/16/24 05/15/24 Renard Hazel MD lansoprazole (Prevacid) [address] capsule TAKE 1 CAPSULE BEFORE A MEAL TWICE DAILY FOR 30 DAYS Patient taking differently: Take 30 mg by mouth before breakfast. TAKE 1 CAPSULE BEFORE A MEAL TWICE DAILY FOR 30 DAYS 11/21/23 Jason Miles MD lisinopril 20 mg tablet 10/27/23 Historical Provider, magnesium oxide (Mag-Ox) 400 mg tablet Take 500 mg by mouth in the morning. Historical Provider, multivitamin tablet Take 1 tablet by mouth in the morning. Historical Provider, ofloxacin (Ocuflox) 0.3 % ophthalmic solution PLEASE SEE ATTACHED FOR DETAILED DIRECTIONS 01/18/24 Historical ProviderMD prednisoLONE acetate (Pred-Forte) 1 % ophthalmic suspension INSTILL 1 DROP INTO BOTH EYES IN THE MORNING, NOON, EVENING, AND BEFORE BEDTIME FOR 14 DAYS 01/18/24 Historical ProviderMD rifAXIMin (Xifaxan) 550 mg tablet Take 1 tablet (550 mg) by mouth two times daily. 12/27/23 Marito Oquendo MD spironolactone (Aldactone) 50 mg tablet Take 3 tablets (150 mg) by mouth in the morning. 12/27/23 Marito Oquendo MD triamterene-hydrochloroth iazid (Dyazide) 37.5-25 mg capsule TAKE 1 CAPSULE BY MOUTH EVERY MORNING NEEDED FOR LEG SWELLING 03/16/23 Historical ProviderMD REVIEW OF SYSTEMS See HPI, otherwise ROS negative as below. OBJECTIVE DATA Vitals: There were no vitals taken for this visit. Physical Exam Vitals reviewed. Cardiovascular: Rate and Rhythm: Normal rate. Pulmonary: Effort: Pulmonary effort is normal. Abdominal: General: Abdomen i (more content not included)... Normal [facility] Orders Onlyon 02-19-2024 Orders Only [id number] Ambrosio Blandon 1955 M Date Provider Department Center 02/19/2024 Huma-VIRGINIA HUTCHISON [facility] No family history on file [facility] Orders Only [id number] Ambrosio Blandon 1955 M Date Provider Department [place] 02/19/2024 Brodie-JANINA PAN [facility] No family history on file [facility] 36on 02-16-2024 36 Called patient's wif e to schedule his 4-[address] follow [address] Johnson, was able to get him in for the 03/08/24 clinic. During this phone call his stated that she is very upset and anxious because he had an MRI done on 01/25/24 in [place] and still hasn't received a call regarding the results. Apologized to her and told her a message would be sent to the provider regarding the results being reviewed with her and the patient, confirmed the message would be sent high priority. Please advise. [facility] 36 LVM for patient's wi fe letting her know we have some available appts with Dr. Johnson on 02/21/24 and 03/08/24 to bring him in for a follow up Liver cirrhosis [facility] Office Visiton 02-15-2024 Follow-up visit [id number] Ambrosio Blandon 1955 M Date Provider Department Center 02/15/2024 383-JEAN JAQUEZ [facility] ONC [facility] No family history on file Level of Service:62149 ME OFFICE/OUTPATIENT NEW LOW MDM 30 MINUTES (GC) Reason for Visit and Comments: Consult [484] - New patient possible thoracentesis [facility] 36on 02-13-2024 36 Patient's saucedo d with questions/concerns regarding his upcoming endoscopy and his breathing during procedure. Transferred to endoscopy to speak with one of the nurses and/or schedulers that can answer questions related to preparation for the procedure. [facility] ALL CBC WITH AUTO DIFFon BASOPHILS ABSOLUTE AUTO 0.1 [facility] Basophils/100 WBC (Bld) 1 % 0.2 - 2.0 % [facility] Eosinophils/100 WBC (Bld) 4.5 % 0.9 - 7.0 % [facility] Erythrocyte distribution width (RBC) [Ratio] 15.6 % High 11.0 - 15.0 % [facility] Hematocrit (Bld) [Volume fraction] 38.2 % Low 42.0 - 54.0 % [facility] Hemoglobin (Bld) [Mass/Vol] 13.1 g/dL Low 14.0 - 18.0 g/dL [facility] IMMATURE GRANULOCYTES ABS AUTO 0.01 [facility] Immature granulocytes/100 WBC (Bld) 0.2 % 0.0 - 0.5 % [facility] Interpretation and review of laboratory results Abnormal [facility] LYMPHOCYTES ABSOLUTE AUTO 1 Low [facility] Lymphocytes/100 WBC (Bld) 19.5 % Low 20.5 - 60.0 % [facility] MCH (RBC) [Entitic mass] 34.7 pg High 25.9 - 34.0 pg [facility] MCHC (RBC) [Mass/Vol] 34.3 g/dL 29.9 - 35.2 g/dL [facility] MCV (RBC) [Entitic vol] 101.1 fL High 80.0 - 94.0 fL [facility] MONOCYTES ABSOLUTE AUTO 0.6 [facility] Monocytes/100 WBC (Bld) 11.7 % 1.7 - 12.0 % [facility] NEUTROPHILS ABSOLUTE AUTO 3.1 [facility] Neutrophils/100 WBC (Bld) 63.1 % 43.0 - 75.0 % [facility] Platelet mean volume (Bld) [Entitic vol] 10 fL 9.5 - 13.5 fL [facility] TB EO # 0.2 [facility] TBH PLT 149 Low [facility] TB RBC 3.78 Low [facility] TBH WBC 4.9 [facility] Prep for Procedureon 024 Prep for Procedure [id number] Ambrosio Blandon 1955 M Date Provider Department Center 02/12/2024 IRENA SCHMIDT [facility] No family history on file Normal [facility] Orders Onlyon 01-25-2024 Orders Only [id number] Ambrosio Blandon 1955 M Date Provider Department Center 01/25/2024 [id number], HISTORICAL [facility] Medical Pavi No family history on file Normal [facility] US Eye+Orbit - bilateralon 1 Diagnosis: Cataract both eyes (OU) Testing Indication: Performed for preop measurements in the determination of an intraocular lens (IOL) for both eyes (OU) Test Reliability: Good quality both eyes (OU) Interpretation: Good measurements for intraocular lens (IOL) calculation purposes. Calculation made for both eyes (OU). [facility] Study observation (narrative) [facility] 36on 01-17-2024 36 Refill sent in already [facility] Orders Onlyon 01-16-2024 Orders Only [id number] Ambrosio Blandon 1955 M Date Provider Department Center 01/16/2024 [id number]-QVCKGRENARD HAZEL [facility] Medical Pavi No family history on file Normal [facility] Orders Onlyon 01-04-2024 Orders Only [id number] Ambrosio Blandon 1955 M Date Provider Department Center 01/04/2024 [id number], HISTORICAL [facility] Medical Pavi No family history on file [facility] 36on 01-03-2024 36 Called patient with results [...] prior or the day of MRI. Normal [facility] 36 ----- Message from Rachel Doan MA sent at 01/03/2024 9:53 AM EDT ----- A new document has been added to this order with description [facility] results. Normal [facility] Mayito 01-03-2024 L Specimen: [id number] Received: 01/09/24 Status: HUSAM Marte Num: [id number] Spec Type: Cytology Subm Dr: Kin Hernandez MD Tissues: A ASCITES (ASCITES) Procedures: HE/2, Gross/Micro L4, Cyto Prepstain, PAPSTN Age/ Patient Sex Location Account Attending Physician Loyd Blandon 68/M LABELL [id number] Kin Hernandez MD SPEC NUM: [id number] RECD: 01/09/24 STATUS: HUSAM MARTE NUM: [id number] WEN: 01/03/[address]: Kin Hernandez MD ENTERED: 01/09/24 [facility] DR: SPEC TYPE: Cytology DEPT: [facility] ENTERED BY: [id number] RECV BY: [id number] ORDERED: HE/2, Gross/Micro L4, Cyto Prepstain, PAPSTN ORDERED: HE/2, Gross/Micro L4, Cyto Prepstain, PAPSTN Pathological Diagnosis Paracentesis fluid, cytology: -No feature of malignant cell -Many lymphocytes and histiocytes and occasional mesothelial cells, including reactive mesothelial cells in small clusters or in multinucleation, consistent with chronic reactive effusion -Cell block section also showing similar findings, except 1 degenerated mesothelial cell with incidental degenerated atypia Clinical Information ASCITES, CIRRHOSIS Gross Description Received is 1000 mL light yellow, cloudy, unfixed fluid for cytology said to have been obtained as Abdominal Ascites. ThinPrep and cell block preparations are prepared for microscopic examination. (MG/kp) Specimen: [id number] Received: 01/09/24 Status: HUSAM Marte Num: [id number] Spec Type: Cytology Subm Dr: Kin Hernandez MD Tissues: A ASCITES (ASCITES) Procedures: HE/2, Gross/Micro L4, Cyto Prepstain, PAPSTN Patient: Loyd Blandon [id number] (Continued) Specimen: [id number] Received: 01/09/24 (Continued) Signed (signature on file) Windy Duque MD 01/10/24 1758 Specimen: [id number] Received: 01/09/24 Status: HUSAM Marte Num: [id number] Spec Type: Cytology Subm Dr: Kin Hernandez MD Tissues: A ASCITES (ASCITES) Procedures: 2, Gross/Micro L4, Cyto Prepstain, PAPSTN Patient: Loyd Blandon [id number] (Continued) Specimen: [id number] Received: 01/09/24 (Continued) Microscopic Description Microscopic examinations are performed supporting the above interpretation CPT Codes 82531 [id number] Specimen: [id number] Received: 01/09/24 Status: HUSAM Marte Num: [id number] Spec Type: Cytology Subm Dr: Kin Hernandez MD Tissues: A ASCITES (ASCITES) Procedures: HE/2, Gross/Micro L4, Cyto Prepstain, PAPSTN Patient: Loyd Blandon [id number] (Continued) Signed (signature on file) Robert-Fabio Duque MD 01/10/24 9062 Normal [facility] Orders Onlyon 01-03-2024 Orders Only [id number] JamiaAmbrosio emma 1955 M Count Includes [facility] Provider Department Center 01/03/2024 [id number], HISTORICAL MP GI Medical [facility]avi No family history on file [facility] SRMCOH PROTHROMBIN TIME INR W/O COUMon 01-03-2024 Interpretation and review of laboratory results Abnormal [facility] PT Coag (PPP) [Time] 12.2 s High [facility] INR 1.17 [facility] Comment on above: DESIRED INR: 2.0-3.0 CONDITIONS NOT LISTED BELOW 2.5-3.5 FOR PROSTHETIC HEART VALVE REPLACEMENT 2.5-3.5 RECURRENT THROMBOSIS [facility] Healthcare Telephoneon 01-03-2024 Telephone [id number] Ambrosio Blandon 1955 M Count Includes [facility] Provider Department Center 01/03/2024 3856-MARITO OQUENDO [facility] GASTRO None No family history on file [facility] 36on 01-01-2024 36 Called patient to anika ingram Lasix dosage, instructed to take Lasix 60mg daily. expressed understanding. I did instruct her that we would like repeat BMP to assess potassium and Creatinine, Monday or Monday. She is planning to have this done at [facility] on Monday. I did provide the fax number to our clinic for results. She is awaiting scheduling for MRI and Abdominal XR at [place]. Normal [facility] Refillon 12-30-2023 Refill [id number] Ambrosio Blandon 1955 M Date Provider Department Center 12/30/202383855-CAVQGRENARD HAZEL [facility] No family history on file Reason for Visit and Comments: Med Refill [[id number]] [facility] 36on 12-29-2023 36 Patient's saucedo aly in to say that the lab at [place] told her insurance doesn't cover the Enteric Bacterial DNA stool and it is $1500, they told her if we sent in an order for a stool culture is would be similar and insurance would cover that. Also the lab doesn't do the fecal fat 24 hours, but will do the fecal fat 72 hours. Please advise. [facility] 36 Patient's carmen ng again for clarification of lasix dosage 60mg daily on the office note, 60mg BID on the prescription. She is concerned about giving him the correct dosage and frequency. [facility] Documentationon 12-29-2023 Documentation [id number] Ambrosio Blandon 1955 M Date Provider Department Center 12/29/2023 Chip9-ZAKIYA LIRA [facility] No family history on file [facility] Orders Onlyon 12-29-2023 Orders Only [id number] Ambrosio Blandon 1955 M Date Provider Department Center 12/29/20232030-EKATERINA ALMODOVAR [facility] No family history on file [facility] Telephoneon 12-29-2023 Telephone [id number] Ambrosio Blandon 1955 M Date Provider Department Center 12/29/2023 BROOKLYNN ZEPEDA [facility] No family history on file [facility] 36on 12-28-2023 36 Patient's carmen ng for clarification of Lasix dosage, on discharge plan it is written as 60mg daily, but the pharmacy gave her a bottle of lasix where the sig is written 60mg twice daily. She anxious and wants to make sure she gives him the correct dosage and frequency.Please advise. Normal [facility] Telephoneon 12-28-2023 Telephone [id number] Ambrosio Blandon 1955 M Date Provider Department Center 12/28/2023 BROOKLYNN ZEPEDA [facility] No family history on file [facility] 37on 12-27-2023 37 On your [...] (same day). This can be done at [place]. Please continue Rifaximin 550mg twice daily, and Lactulose once daily for encephalopathy Schedule a follow up appointment in 3 months. Normal [facility] AFP TUMOR MARKERon ALPHA FETOPROTEIN TUMOR MARKER 3 ng/mL Normal 0-9 [facility] Comment on above: Result Comment: INTE RPRETIVE [...] reference intervals for this test in the [facility] Test Directory (GuidePal). Performed By: [facility] [address] [place] [address] Jet Dyeing Machine Operator: Ira Lutz MD, PhD CLIA Number: [id number] Performed By: #### L [id number] ####[facility] ([facility])[address] [place] [address] CBCon 12-27-2023 Erythrocyte distribution width (RBC) [Ratio] 15.1 % High 11.5-15.0 [facility] Comment on above: Performed By: #### L [id number] ####[facility] ([facility])[address] [address] ERYTHROCYTE MEAN CORPUSCULAR HEMOGLOBIN CONCENTRATION (G/DL) BY AUTOMATED 33.2 g/dL Normal 32.0-35.0 [facility] Comment on above: Performed By: #### L [id number] ####[facility] ([place])[address] [place] [address] Hematocrit (Bld) [Volume fraction] 38.5 % Low 39.0-55.0 [facility] Comment on above: Performed By: #### L [id number] ####[facility] ([facility])[address] [facility] [place] [address] Hemoglobin (Bld) [Mass/Vol] 12.8 g/dL Low 13.0-17.0 [facility] Comment on above: Performed By: #### L [id number] ####[facility] ([facility])[address] [place] [address] MCH (RBC) [Entitic mass] 32.8 pg Normal 27.0-33.0 [facility] Comment on above: Performed By: #### L [id number] ####[facility] (BEAKER)[address] [facility] [place] [address] MCV (RBC) [Entitic vol] 98.7 fL High 82.0-98.0 [facility] Comment on above: Performed By: #### L [id number] ####[facility] ([facility])[address] [facility] [place] [address] PLATELETS (10*3/UL) IN BLOOD AUTOMATED COUNT 166 10*3/uL Normal 150-400 [facility] Comment on above: Performed By: #### L [id number] ####[facility] ([place])[address] [place] [address] RBC (Bld) [#/Vol] 3.90 10*6/uL Low 4.20-5.70 [facility] Comment on above: Performed By: #### L [id number] ####[facility] ([place])[address] [place] [address] WBC (Bld) [#/Vol] 4.72 10*3/uL Normal 4.00-10.60 [facility] Comment on above: Performed By: #### L [id number] ####[facility] ([place])[address] [place] [address] COMPREHENSIVE METABOLIC PANE [place] 12-27-2023 Albumin [Mass/Vol] 3.1 g/dL Low 3.5-5.7 [facility] Comment on above: Performed By: #### L [id number] ####[facility] ([place])[address] [place] [address] ALP [Catalytic activity/Vol] 120 U/L High 34-104 [facility] Comment on above: Performed By: #### L [id number] ####[facility] ([place])[address] [place] [address] ALT [Catalytic activity/Vol] 25 U/L Normal 7-52 [facility] Comment on above: Performed By: #### L [id number] ####[facility] ([facility])[address] [place] [address] Anion gap [Moles/Vol] 12 mmol/L Normal 7-20 [facility] Comment on above: Performed By: #### L [id number] ####[facility] ([facility])[address] [place] [address] AST [Catalytic activity/Vol] 46 U/L High 13-39 [facility] Comment on above: Performed By: #### L [id number] ####[facility] ([facility]ER)[address] [place] [address] Bilirubin [Mass/Vol] 1.9 mg/dL High 0.3-1.0 [facility] Comment on above: Performed By: #### L [id number] ####[facility] ([facility])[address] [place] [address] Calcium [Mass/Vol] 9.0 mg/dL Normal 8.6-10.3 [facility] Comment on above: Performed By: #### L [id number] ####[facility] ([facility])[address] [place] [address] Chloride [Moles/Vol] 98 mmol/L Normal 98-107 [facility] Comment on above: Performed By: #### L [id number] ####[facility] ([facility])[address] [place] [address] CO2 [Moles/Vol] 26 mmol/L Normal 21-31 [facility] Comment on above: Performed By: #### L [id number] ####[facility] ([facility])[address] [place] [address] Creatinine [Mass/Vol] 1.11 mg/dL Normal 0.70-1.30 [facility] Comment on above: Performed By: #### L [id number] ####[facility] ([facility])[address] [place] [address] GLOMERULAR FILTRATION RATE ML/MIN/1.73 SQ M.PREDICTED 71.4 mL/min/1.73m*2 Normal >60.0 [facility] Comment on above: Result Comment: The [facility]???s estimated glomerular filtration rate (eGFR) will no [...] of individuals. Performed By: #### L [id number] ####[facility] ([place])[address] [place] [address] Glucose [Mass/Vol] 111 mg/dL High 70-100 [facility] Comment on above: Performed By: #### L [id number] ####[facility] ([place])[address] [place] [address] Potassium [Moles/Vol] 4.4 mmol/L Normal 3.5-5.1 [facility] Comment on above: Performed By: #### L [id number] ####[facility] ([facility])[address] [place] [address] Protein [Mass/Vol] 7.3 g/dL Normal 6.0-8.3 [facility] Comment on above: Performed By: #### L [id number] ####[facility] ([facility])[address] [place] [address] Sodium [Moles/Vol] 132 mmol/L Low 136-145 [facility] Comment on above: Performed By: #### L [id number] ####[facility] ([place])[address] [place] [address] Urea nitrogen [Mass/Vol] 17 mg/dL Normal 7-25 [facility] Comment on above: Performed By: #### L [id number] ####[facility] ([place])[address] [place] [address] UREA NITROGEN/CREATININE (MASS RATIO) IN SER/PLAS 15.3 [facility] Comment on above: Performed By: #### L [id number] ####[facility] ([place])[address] [place] [address] Labon 12-27-2023 Lab [id number] Ambrosio Blandon 1955 M Date Provider Department Center 12/27/2023 2244-[facility] MP LAB RESOURCE MP DRAW Medical Pavi No family history on file Normal [facility] Office Visiton 12-27-2023 Follow-up visit [id number] Ambrosio Blandon 1955 M Date Provider Department Center 12/27/2023 Vahid-IRENA JOHNSON GI Medical [facility]avi No family history on file Level of Service:10806 ME OFFICE/OUTPATIENT ESTABLISHED HIGH MDM 40 MIN (GC) Reason for Visit and Comments: Follow-up [354160] Cirrhosis [239] Ascites [295] Normal [facility] PROTIME-INRon 12-27-2023 INR IN PPP BY COAGULATION ASSAY 1.21 High 0.90-1.10 [facility] Comment on above: Result Comment: ACCC P [...] RANGE. CHEST 1995;108:231S-246S. Performed By: #### L [id number] #### [facility] (BEAKER) [address] [place] [address] PROTHROMBIN TIME (PT) IN PPP BY COAGULATION ASSAY 15.3 Seconds High 12.3-14.8 [facility] Comment on above: Performed By: #### L [id number] #### [facility] ([facility]) [address] [place] [address] 36on 12-21-2023 36 I called and spoke w ith the patient's in regards to his recent lab work after increasing his diuretics. His creatinine and electrolytes are grossly stable after increasing his Lasix and Aldactone. We will continue with the current regimen of Lasix 40 twice daily and Aldactone 200 mg daily and follow-up in hepatology clinic on 12/27/2023. Normal [facility] Orders Onlyon 12-21-2023 Orders Only [id number] Ambrosio Blandon 1955 M Count Includes [facility] Provider Department Center 12/21/2023 [id number], MAGALIS GI Medical Pavi No family history on file Normal [facility] Telephoneon 12-21-2023 Telephone [id number] Ambrosio Blandon 1955 M Date Provider Department Center 12/21/202344575-CVYIFRENARD HAZEL [facility] Medical Pavi No family history on file Normal [facility] ALL CBC WITH AUTO DIFFon BASOPHILS ABSOLUTE AUTO 0.0 [facility] Basophils/100 WBC (Bld) 0.8 % 0.2 - 2.0 % [facility] Eosinophils/100 WBC (Bld) 2.7 % 0.9 - 7.0 % [facility] Erythrocyte distribution width (RBC) [Ratio] 14.9 % 11.0 - 15.0 % [facility] Hematocrit (Bld) [Volume fraction] 37.6 % Low 42.0 - 54.0 % [facility] Hemoglobin (Bld) [Mass/Vol] 12.7 g/dL Low 14.0 - 18.0 g/dL [facility] IMMATURE GRANULOCYTES ABS AUTO 0.02 [facility] Immature granulocytes/100 WBC (Bld) 0.4 % 0.0 - 0.5 % [facility] Interpretation and review of laboratory results Abnormal [facility] LYMPHOCYTES ABSOLUTE AUTO 0.7 Low [facility] Lymphocytes/100 WBC (Bld) 15.2 % Low 20.5 - 60.0 % [facility] MCH (RBC) [Entitic mass] 33.6 pg 25.9 - 34.0 pg [facility] MCHC (RBC) [Mass/Vol] 33.8 g/dL 29.9 - 35.2 g/dL [facility] MCV (RBC) [Entitic vol] 99.5 fL High 80.0 - 94.0 fL [facility] MONOCYTES ABSOLUTE AUTO 0.6 [facility] Monocytes/100 WBC (Bld) 11.9 % 1.7 - 12.0 % [facility] NEUTROPHILS ABSOLUTE AUTO 3.3 [facility] Neutrophils/100 WBC (Bld) 69.0 % 43.0 - 75.0 % [facility] Platelet mean volume (Bld) [Entitic vol] 9.8 fL 9.5 - 13.5 fL [facility] TBH EO # 0.1 [facility] TBH PLT 159 [facility] TB RBC 3.78 Low [facility] TB WBC 4.8 [facility] Orders Onlyon 12-20-2023 Orders Only [id number] Ambrosio Blandon emma 1955 M Date Provider Department Center 12/20/2023 [id number], HISTORICAL MP GI Medical Pavi No family history on file [facility] 36on 12-14-2023 36 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 [facility] 36 ----- Message from Serena Hazel MD sent at 12/14/2023 1:36 PM EDT ----- Petra, I sent over a prescription for his diuretics and recommended that they have repeat CMP next week. The order has been placed, can you please fax this to [facility] so that they can get them done next week? Thank you so much ----- Message ----- From: Rachel Doan MA Sent: 12/13/2023 1:35 PM EDT To: Renard Hazel MD A new document has been added to this order with description CMP results [facility]. [facility] 36 Patient's sheryl lu last [...] assess his diuretics further at that time. [facility] Orders Onlyon 12-14-2023 Orders Only [id number] Jamia,Wil emma 1955 M Date Provider Department Center 12/14/202373884-DALSRRENARD HAZEL MP Medical Pavi No family history on file [facility] Telephoneon 12-14-2023 Telephone [id number] Jamia,Wil emma 1955 M Date Provider Department Center 12/14/202327250-RTAFPRENARD HAZEL MP Medical Pavi No family history on file [facility] CMP (CMP) (FOR REMOTE FH C USE)on 12-13-2023 Albumin [Mass/Vol] 2.5 g/dL Low 3.4 - 5.0 g/dL [facility] ALBUMIN GLOBULIN RATIO 0.6 NO [facility] ALP [Catalytic activity/Vol] 112 U/L 46 - 116 U/L [facility] ALT [Catalytic activity/Vol] 26 U/L 16 - 63 U/L [facility] Anion gap [Moles/Vol] 15.4 mmol/L NO [facility] AST [Catalytic activity/Vol] 50 U/L High 15 - 37 U/L [facility] Bilirubin [Mass/Vol] 2.1 mg/dL High 0.2 - 1 .0 mg/dL [facility] Calcium [Mass/Vol] 9.1 mg/dL 8.5 - 10. 1 mg/dL [facility] Chloride [Moles/Vol] 100 mmol/L 98 - 10 7 mmol/L [facility] CO2 [Moles/Vol] 24.4 mmol/L 21.0 - 32.0 mmol/L [facility] Creatinine [Mass/Vol] 1.29 mg/dL 0.70 - 1.30 mg/dL [facility] GFR/1.73 sq M.predicted CKD-EPI (S/P/Bld) [Vol rate/Area] >60 60 - PINF [facility] Globulin (S) [Mass/Vol] 4.4 g/dL [facility] Glucose [Mass/Vol] 97 mg/dL 74 - 106 mg/dL [facility] Interpretation and review of laboratory results Abnormal [facility] Potassium [Moles/Vol] 4.8 mmol/L 3.5 - 5.1 mmol/L [facility] Protein [Mass/Vol] 6.9 g/dL 6.4 - 8.2 g/dL [facility] Sodium [Moles/Vol] 135 mmol/L Low 136 - 145 mmol/L [facility] TBH EGFR-NON AF SRI LANKAN 55 Low 60 - PINF [facility] Urea nitrogen [Mass/Vol] 15.0 mg/dL 7.0 - 18.0 mg/dL [facility] Urea nitrogen/Creatinine [Mass ratio] 11.6 mg/mg [facility] Orders Onlyon 12-13-2023 Orders Only [id number] Ambrosio Blandon emma 1955 M Date Provider Department Center 12/13/2023 [id number], HISTORICAL MP GI Medical Pavi No family history on file [facility] 36on 12-11-2023 36 Patient's repor [...] an appointment in hepatology clinic on 12/27/2023. [facility] 36 of patient call s today stating that when they went for paracentesis at [place] last week - the patient was admitted. [...] clinic visit with Dr. Johnson on 12/27/2023. Normal [facility] Orders Onlyon 12-11-2023 Orders Only [id number] Ambrosio Blandon 1955 M Date Provider Department Center 12/11/202333152-UNGEARENARD HAZEL MP GI Medical Pavi No family history on file Normal [facility] Telephoneon 12-11-2023 Telephone [id number] Ambrosio Blandon 1955 M Date Provider Department Center 12/11/202399594-LBVWJRENARD HAZEL MP Medical Pavi No family history on file Normal [facility] GRAM STAIN RESULTon 12-09-19 GRAM STAIN RESULT Gram Stain Result [facility] GRAM STAIN RESULT No white blood cells seen. [facility] GRAM STAIN RESULT [facility] GRAM STAIN RESULT No organisms seen [facility] GRAM STAIN RESULT Performed at: [facility] GRAM STAIN RESULT [address] [place], [place] [id number] [facility] GRAM STAIN RESULT [place]imehouse Worker: Sunshine Tang PhD, Phone: [phone] [facility] Comment Pleural flui d [facility] Mayito 12-08-2023 L Specimen: Received: 12/11/23 Status: HUSAM Marte Num: [id number] Spec Type: Cytology Subm Dr: Devyn Winter DO Tissues: A PLEURAL FLUID (PLEUR) Procedures: HE/2, Gross/Micro L4, Cyto Prepstain, PAPSTN Age/ Patient Sex Location Account Attending Physician Loyd Blandon 68/M LABELL [id number] Devyn Winter DO SPEC NUM: [id number] RECD: 12/11/23 STATUS: HUSAM MARTE NUM: [id number] WEN: 12/08/[address]: Devyn Winter DO ENTERED: 12/11/23 [facility] DR: Aliza Arroyo SPEC TYPE: Cytology DEPT: [facility] ENTERED BY: [id number] RECV BY: [id number] ORDERED: HE/2, Gross/Micro L4, Cyto Prepstain, PAPSTN [...] interpretation Specimen: [id number] Received: 12/11/23 Status: HUSAM Marte Num: [id number] Spec Type: Cytology Subm Dr: Devyn Winter DO Tissues: A PLEURAL FLUID (PLEUR) Procedures: HE/2, Gross/Micro L4, Cyto Prepstain, PAPSTN Patient: Loyd Blandon [id number] (Continued) Specimen: Received: 12/11/23 (Continued) Signed (signature on file) Windy Duque MD 12/14/23 1503 Specimen: Received: 12/11/23 Status: HUSAM Marte Num: [id number] Spec Type: Cytology Subm Dr: Devyn Winter DO Tissues: A PLEURAL FLUID (PLEUR) Procedures: HE/2, Gross/Micro L4, Cyto Prepstain, PAPSTN Patient: Loyd Blandon [id number] (Continued) Specimen: Received: 12/11/23 (Continued) CPT Codes 98219 16873 Specimen: [id number] Received: 12/11/23 Status: HUSAM Marte Num: [id number] Spec Type: Cytology Subm Dr: Devyn Winter DO Tissues: A PLEURAL FLUID (PLEUR) Procedures: HE/2, Gross/Micro L4, Cyto Prepstain, PAPSTN Patient: Loyd Blandon [id number] (Continued) Signed (signature on file) Windy Duque MD 12/14/23 0088 [facility] Mayito 12-07-2023 L Specimen: BC Received: 12/14/23 Status: HUSAM Marte Num: [id number] Spec Type: Cytology Subm Dr: Ward Stern MD Tissues: A ASCITES (ASC) Procedures: HE/2, Gross/Micro L4, Cyto Prepstain, PAPSTN Age/ Patient Sex Location Account Attending Physician JamiaLoyd 68/M LABELL [id number] Ward Stern MD SPEC NUM: RECD: 12/14/23 STATUS: HUSAM MARTE NUM: [id number] WEN: 12/07/23- SUBM DR: Ward Stern MD ENTERED: 12/14/23 [facility] DR: Dina,Aliza SPEC TYPE: Cytology DEPT: [facility] ENTERED BY: [id number] RECV BY: [id number] ORDERED: HE/2, Gross/Micro L4, Cyto Prepstain, PAPSTN [...] above interpretation Specimen: Received: 12/14/23 Status: HUSAM Marte Num: [id number] Spec Type: Cytology Subm Dr: Ward Stern MD Tissues: A ASCITES (ASC) Procedures: HE/2, Gross/Micro L4, Cyto Prepstain, PAPSTN Patient: JamiaLoyd [id number] (Continued) Specimen: [id number] Received: 12/14/23 (Continued) Signed (signature on file) Windy Duque MD 12/19/23 1440 Specimen: [id number] Received: 12/14/23 Status: HUSAM Marte Num: [id number] Spec Type: Cytology Subm Dr: Ward Stern MD Tissues: A ASCITES (ASC) Procedures: HE/2, Gross/Micro L4, Cyto Prepstain, PAPSTN Patient: Loyd Blandon [id number] (Continued) Specimen: Received: 12/14/23 (Continued) CPT Codes 49718 95794 Specimen: Received: 12/14/23 Status: HUSAM Marte Num: [id number] Spec Type: Cytology Subm Dr: Ward Stern MD Tissues: A ASCITES (ASC) Procedures: HE/2, Gross/Micro L4, Cyto Prepstain, PAPSTN Patient: Loyd Blandno [id number] (Continued) Signed (signature on file) Chin-Fabio Duque MD 12/19/23 1440 Normal [facility] 36on 12-01-[address] Hazel in clinic, order placed and faxed to [facility] at [phone] [facility] 36 calls stating t hat patient is in need of an order for paracentesis. Order will need to be sent to [facility]. [facility] Orders Onlyon 12-01-2023 Orders Only [id number] Ambrosio Blandon 1955 Date Provider Department Center 12/01/202306047-SBOOHRENARD HAZEL [facility] Medical Pavi No family history on file Normal [facility] 11-27-2023 ----- ----- Attestation signed by Irena Johnson MD at 11/27/2023 10:41 AM I personally saw and examined the patient on the same date of service as fellow. I discussed the findings and therapeutic plan with the fellow. I agree with the documentation, except for any edits/updates below. ----- Gastroenterology History and Physical Note IDENTIFYING DATA PATIENT: Loyd Blandon HISTORY OF PRESENT ILLNESS Loyd Blandon is a 68 y.o. male who [...] by mouth at bedtime. 11/08/23 11/07/24 Yes Jason Miles MD calcium carbonate-vitamin D3 500 mg-3.125 mcg (125 unit) tablet tablet 1 tablet. 06/02/23 Yes Historical ProviderMD famotidine (Pepcid) 40 mg tablet Take 1 tablet (40 mg) by mouth in the morning. Patient taking differently: Take 40 mg by mouth two times daily. 11/08/23 11/07/24 Yes Jason Miles MD furosemide (Lasix) 40 mg tablet Take 40 mg by mouth in the morning. 06/02/23 Yes Historical Provider, lansoprazole (Prevacid) [address] capsule TAKE 1 CAPSULE BEFORE A MEAL TWICE DAILY FOR 30 DAYS Patient taking differently: Take 30 mg by mouth before breakfast. TAKE 1 CAPSULE BEFORE A MEAL TWICE DAILY FOR 30 DAYS 11/21/23 Yes Jason Miles MD magnesium oxide (Mag-Ox) 400 mg tablet Take 500 mg by mouth in the morning. Yes Historical Provider, multivitamin tablet Take 1 tablet by mouth in the morning. Yes Historical Provider, rifAXIMin (Xifaxan) 550 mg tablet Take 1 tablet (550 mg) by mouth in the morning and at bedtime. 10/13/23 12/12/23 Yes Renard Hazel MD spironolactone (Aldactone) 100 mg tablet Take 100 mg by mouth in the morning. 06/02/23 Yes Historical Provider, lansoprazole (Prevacid) [address] capsule TAKE 1 CAPSULE BEFORE A MEAL TWICE DAILY FOR 30 DAYS 11/20/23 11/21/23 Renard Hazel MD REVIEW OF SYSTEMS See HPI, [...] PROT B12/Folate/Iron studies: No results found for: [id number] , FOLATE , IRON , TIBC , UIBC , IRONSAT , FERRITIN ASSESSMENT AND PLAN Loyd Blandon is a 68 y.o. male who has a known past medical history significant for alcoholic liver cirrhosis, Recinos's esophagus and hepatic encephalopathy is scheduled today for an EGD for esophageal varices screening. Plan: Plan for EGD today for esophageal varices secondary to liver cirrhosis. [facility] POCT GLUCOSE METER UNSOLICIT ED RESULTSon 11-27-2023 Glucose [Mass/Vol] 101 mg/dL Normal 70-105 [facility] Comment on above: Order Comment: Waive d Testing in the ED is performed under the ED CLIA certificate #[id number]. Result Comment: jhag eman Performed By: #### L [id number] ####[facility] (BEAKER)[address] [place] [address] 36on 11-21-2023 36 Appeal submitted Normal [facility] Orders Onlyon 11-21-2023 Orders Only [id number] Ambrosio Blandon 1955 M Date Provider Department Center 11/21/2023 [id number]-ETKFLXBROOKLYNN SINGH MP GI Medical Pavi No family history on file Normal [facility] Prep for Procedureon 024 Prep for Procedure [id number] Ambrosio Blandon 1955 M Date Provider Department Center 11/21/2023 Vahid-IRENA JOHNSON [facility] GIS [place] No family history on file Normal [facility] MR ABDOMEN W AND WO CONTRAST on [...] signed: Adalid Montiel. 9 Invalid Interpretation Code [facility] Orders Onlyon 11-08-2023 Orders Only [id number] Ambrosio Blandon 1955 M [facility] [place] 11/08/2023 BROOKLYNN ZEPEDA [facility] Medical Pavi No family history on file Normal [facility] 3611-02-2023 36 Patient's carmen jolynn to verify that Dr. Miles will now be prescribing the Famotidine and Baclofen because the previously prescribing physician no longer will now that he is a [facility] GI patient. The preferred pharmacy is [facility] in [place]. Please advise and these orders can then be pended. Normal [facility] Orders Onlyon 11-02-2023 Orders Only [id number] Ambrosio Blandon 1955 M [facility] [place] 11/02/2023 [id number], MAGALIS GI Medical Pavi No family history on file Normal [facility] 36on 10-26-2023 36 I called the patient [...] of his liver on the . Normal [facility] Orders Onlyon 10-26-2023 Orders Only [id number] Jamia,Wil emma 1955 [facility] 10/26/202308228-RWWXBRENARD TAYLOR [facility] Medical Pavi No family history on file Normal [facility] Telephoneon 10-26-2023 Telephone [id number] Jamia,Wil emma 1955 [facility] 10/26/202302555-RKZHRRENARD HAZEL MP GI Medical Pavi No family history on file [facility] Orders Onlyon 10-24-2023 Orders Only [id number] Ambrosio Blandon 1955 M Date Provider Department Center 10/24/2023 [id number], HISTORICAL MP GI Medical Pavi No family history on file [facility] Orders Onlyon 10-20-2023 Orders Only [id number] Ambrosio Blandon 1955 M Date Provider Department Center 10/20/2023 Olinda-RUFINO MATHUR [facility] Medical No family history on file [facility] 36on 10-18-2023 36 I called [...] we can follow-up on his sodium level. [facility] 36 Patients called stating they [...] from you to clarify some things. Normal [facility] Orders Onlyon 10-18-2023 Orders Only [id number] Ambrosio Blandon 1955 M Date Provider Department Center 10/18/2023 EKATERINA ALMARAZ [facility] GE[place]GEI No family history on file [facility] Telephoneon 10-18-2023 Telephone [id number] Ambrosio Blandon 1955 M Date Provider Department Center 10/18/202364882-PICAZRENARD ESPOSITO MP GI Medical Pavi No family history on file [facility] Orders Onlyon 10-17-2023 Orders Only [id number] Ambrosio Blandon 1955 M Date Provider Department Center 10/17/202397709-AKLLORENARD HAZEL MP GI Medical Pavi No family history on file [facility] Documentationon 10-16-2023 Documentation [id number] Ambrosio Blandon 1955 M Date Provider Department Center 10/16/2023 JOSH NICOLE GI Medical Pavi No family history on file Reason for Visit and Comments: Specialty Pharmacy Note: Xifaxan PAP [Other] [facility] Prep for Procedureon 024 Prep for Procedure [id number] Ambrosio Blandon 1955 M Date Provider Department Center 10/16/2023 IRENA SCHMIDT [facility] [place]GEI No family history on file [facility] BASIC METABOLIC PANELon 09-16 Anion gap [Moles/Vol] 14 mmol/L Normal 7- [facility] Comment on above: Performed By: #### L [id number] #### [facility] (BEAKER) [address] [place] [address] Calcium [Mass/Vol] 9.1 mg/dL Normal 8.6-10.3 [facility] Comment on above: Performed By: #### L [id number] #### [facility] ([facility] [address] [place] [address] Chloride [Moles/Vol] 96 mmol/L Low 98-107 [facility] Comment on above: Performed By: #### L [id number] #### [facility] ([facility]) [address] [place] [address] CO2 [Moles/Vol] 22 mmol/L Normal 21-31 [facility] Comment on above: Performed By: #### L [id number] #### [facility] ([facility]) [address] [place] [address] Creatinine [Mass/Vol] 1.00 mg/dL Normal 0.70-1.30 [facility] Comment on above: Performed By: #### L [id number] #### [facility] ([facility]) [address] [place] [address] GLOMERULAR FILTRATION RATE ML/MIN/1.73 SQ M.PREDICTED 81.0 mL/min/1.73m*2 Normal >60.0 [facility] Comment on above: Result Comment: The [facility]???s estimated glomerular filtration rate (eGFR) will no [...] group of individuals. Performed By: #### L [id number] #### [facility] ([facility]) [address] [place] [place] [address] Glucose [Mass/Vol] 108 mg/dL High 70-100 [facility] Comment on above: Performed By: #### L [id number] #### [facility] (BEAKER) [address] [place] [address] Potassium [Moles/Vol] 4.8 mmol/L Normal 3.5-5.1 [facility] Comment on above: Performed By: #### L [id number] #### [facility] ([facility]ER) [address] [place] [address] Sodium [Moles/Vol] 127 mmol/L Low 136-145 [facility] Comment on above: Performed By: #### L [id number] #### [facility] (BEAKER) [address] [place] [address] Urea nitrogen [Mass/Vol] 13 mg/dL Normal 7-25 [facility] Comment on above: Performed By: #### L [id number] #### [facility] (BEAKER) [address] [place] [address] UREA NITROGEN/CREATININE (MASS RATIO) IN SER/PLAS 13.0 Normal [facility] Comment on above: Performed By: #### L [id number] #### [facility] (BEAKER) [address] [place] [address] CBCon 10-13-2023 Erythrocyte distribution width (RBC) [Ratio] 14.2 % Normal 11.5-15.0 [facility] Comment on above: Performed By: #### L [id number] #### [facility] (BEAKER) [address] [place] [address] ERYTHROCYTE MEAN CORPUSCULAR HEMOGLOBIN CONCENTRATION (G/DL) BY AUTOMATED 34.5 g/dL Normal 32.0-35.0 [facility] Comment on above: Performed By: #### L [id number] #### [facility] (BEAKER) [address] [place] [address] Hematocrit (Bld) [Volume fraction] 38.0 % Low 39.0-55.0 [facility] Comment on above: Performed By: #### L [id number] #### [facility] (BEAKER) [address] [place] [address] Hemoglobin (Bld) [Mass/Vol] 13.1 g/dL Normal 13.0-17.0 [facility] Comment on above: Performed By: #### L [id number] #### [facility] ([facility]) [address] [place] [address] MCH (RBC) [Entitic mass] 34.4 pg High 27.0-33.0 [facility] Comment on above: Performed By: #### L [id number] #### [facility] ([facility]) [address] [place] [address] MCV (RBC) [Entitic vol] 99.7 fL High 82.0-98.0 [facility] Comment on above: Performed By: #### L [id number] #### [facility] ([facility]) [address] [place] [address] PLATELETS (10*3/UL) IN BLOOD AUTOMATED COUNT 212 10*3/uL Normal 150-400 [facility] Comment on above: Performed By: #### L [id number] #### [facility] ([facility]) [address] [place] [address] RBC (Bld) [#/Vol] 3.81 10*6/uL Low 4.20-5.70 [facility] Comment on above: Performed By: #### L [id number] #### [facility] ([facility]) [address] [place] [address] WBC (Bld) [#/Vol] 6.20 10*3/uL Normal 4.00-10.60 [facility] Comment on above: Performed By: #### L [id number] #### [facility] ([facility]) [address] [place] [address] HEPATIC FUNCTION PANELon Albumin [Mass/Vol] 3.4 g/dL Low 3.5-5.7 [facility] Comment on above: Performed By: #### L [id number] #### [facility] ([facility]) [address] [place] [address] ALP [Catalytic activity/Vol] 114 U/L High 34-104 [facility] Comment on above: Performed By: #### L [id number] #### [facility] ([facility]) [address] [place] [address] ALT [Catalytic activity/Vol] 23 U/L Normal 7-52 [facility] Comment on above: Performed By: #### L [id number] #### [facility] ([facility]) [address] [place] [address] AST [Catalytic activity/Vol] 48 U/L High 13-39 [facility] Comment on above: Performed By: #### L [id number] #### [facility] ([facility]) [address] [place] [address] Bilirubin [Mass/Vol] 1.5 mg/dL High 0.3-1.0 [facility] Comment on above: Performed By: #### L [id number] #### [facility] ([facility]) [address] [place] [address] Magnesium [Mass/Vol] 0.5 mg/dL High 0-0.2 [facility] Comment on above: Performed By: #### L [id number] #### [facility] ([facility]) [address] [place] [address] Protein [Mass/Vol] 7.8 g/dL Normal 6.0-8.3 [facility] Comment on above: Performed By: #### L [id number] #### [facility] ([facility]) [address] [place] [address] Labon 10-13-2023 Lab [id number] Ambrosio Blandon 1955 M Date Provider Department Center 10/13/2023 2244-[facility] MP LAB RESOURCE MP DRAW Medical Pavi No family history on file Normal [facility] Office Visiton 10-13-2023 Follow-up visit [id number] Ambrosio Blandon 1955 M Date Provider Department Center 10/13/2023 Vahid-JOHNSON, IRENA MP GI Medical Pavi No family history on file Level of Service:57336 ME OFFICE/OUTPATIENT ESTABLISHED HIGH MDM 40 MIN () Reason for Visit and Comments: Cirrhosis [239] Ascites [295] Normal [facility] PROTIME-INRon 10-13-2023 INR IN PPP BY COAGULATION ASSAY 1.17 High 0.90-1.10 [facility] Comment on above: Result Comment: ACCC P [...] RANGE. CHEST 1995;108:231S-246S. Performed By: #### L [id number] #### [facility] (BEAKER) [address] [place] [address] PROTHROMBIN TIME (PT) IN PPP BY COAGULATION ASSAY 14.9 Seconds High 12.3-14.8 [facility] Comment on above: Performed By: #### L [id number] #### [facility] (BEAKER) [address] [place] [address] Orders Onlyon 10-06-2023 Orders Only [id number] Ambrosio Blandon 1955 M Date Provider Department Center 10/06/2023 [id number], HISTORICAL MP GI Medical Pavi No family history on file Normal [facility] Mayito 10-03-2023 L Specimen: Received: 10/04/23 Status: HUSAM Marte Num: [id number] Spec Type: Cytology Subm Dr: Jason Miles MD Tissues: A ASCITES (ASC) Procedures: HE/2, Gross/Micro L4, Cyto Prepstain, PAPSTN Age/ Patient Sex Location Account Attending Physician JamiaLoyd rivera 68/M LABELL [id number] Ward Stern MD SPEC NUM: RECD: 10/04/23 STATUS: HUSAM MARTE NUM: [id number] WEN: 10/03/[address]: Jason Miles MD ENTERED: 10/04/23 [facility] DR: Dina,Lab Ward Stern MD SPEC TYPE: Cytology DEPT: [facility] ENTERED BY: [id number] RECV BY: [id number] ORDERED: HE/2, Gross/Micro L4, Cyto Prepstain, PAPSTN ORDERED: HE/2, Gross/Micro L4, Cyto Prepstain, PAPSTN Pathological Diagnosis Ascites fluid cytology: Atypical cells noted. Clinical Information cirrhosis, liver lesion Gross Description Received is 1000 ml yellow cloudy unfixed fluid for cytology said to have been obtained as abdominal ascites fluid. ThinPrep and cell block preparations are prepared for microscopic examination. ([place]) CPT Codes 40109 Specimen: BC Received: 10/04/23 Status: HUSAM Marte Num: [id number] Spec Type: Cytology Subm Dr: Jason Miles MD Tissues: A ASCITES (ASC) Procedures: HE/2, Gross/Micro L4, Cyto Prepstain, PAPSTN Patient: Loyd Blandon [id number] (Continued) Signed (signature on file) Jean Bean MD 10/05/23 1340 Normal [facility] Orders Onlyon 09-27-2023 Orders Only [id number] Ambrosio Blandon 1955 M Date Provider Department Center 09/27/2023 204-HARSHA CONNER [facility] GI [facility] No family history on file Normal [facility] CREATININE, SERUMon 09-25-19 24 Creatinine [Mass/Vol] 1.06 mg/dL Normal 0.70-1.30 [facility] Comment on above: Performed By: #### L [id number] #### [facility] ([facility]) [address] [place] [address] GLOMERULAR FILTRATION RATE ML/MIN/1.73 SQ M.PREDICTED 75.5 mL/min/1.73m*2 Normal >60.0 [facility] Comment on above: Result Comment: The [facility]???s estimated glomerular filtration rate (eGFR) will no [...] group of individuals. Performed By: #### L [id number] #### [facility] (BEAKER) [address] [place] [address] CTA ABDOMEN PELVIS W IV CONT Hailey [...] TELEPHONED BY THE RADIOLOGY DEPARTMENT. Electronically signed: Camila Gan MD. Not Vldtd Invalid Interpretation Code [facility] Labon 09-25-2023 Lab [id number] Jamia,Ambrosio emma 1955 M Date Provider Department Center 09/25/2023 [id number]-[facility] OPD LAB RESOURCE [facility] OPD CO Medical C No family history on file Normal [facility] Orders Onlyon 09-23-2023 Orders Only [id number] Jamia,Ambrosio emma 1955 M Date Provider Department Center 09/23/2023 [id number] GI [facility] No family history on file Normal [facility] Orders Onlyon 09-15-2023 Orders Only [id number] Jamia,Ambrosio emma 1955 M Date Provider Department Center 09/15/2023 [id number], BETH GI Medical Pavi No family history on file Normal [facility] Orders Onlyon 09-14-2023 Orders Only [id number] Jamia,Ambrosio emma 1955 M Date Provider Department Center 09/14/2023 [id number], BETH GI Medical Pavi No family history on file Normal [facility] Orders Onlyon 08-28-2023 Orders Only [id number] Jamia,Ambrosio emma 1955 M Date Provider Department Center 08/28/2023 [id number], [facility] GI Medical Pavi No family history on file Normal [facility] Basophils Auto (Bld) [#/Vol] Ordered By: Brayan Alves on 06-02-2023 Basophils (Bld) [#/Vol] 0.0 10*3/uL 0.0-0.2 [facility] Basophils/100 WBC Auto (Bld) Ordered By: Brayan Alves on 06-02-2023 Basophils/100 WBC (Bld) 0.7 % . [facility] Calcium [Mass/volume] in Ser um or PlasmaOrdered By: Brayan Alves on 06-02-2023 Calcium [Mass/Vol] 8.6 mg/dL 8.6-10.3 [facility] Carbon dioxide, total [Moles /volume] in Serum or PlasmaOrdered By: Brayan Alves on 06-02-2023 CO2 [Moles/Vol] 27.3 mmol/L 21.0-31.0 [facility] Chloride [Moles/volume] in S mateo or PlasmaOrdered By: Brayan Alves on 06-02-2023 Chloride [Moles/Vol] 96 mmol/L 98-107 [facility] Creatinine [Mass/volume] in Serum or PlasmaOrdered By: Brayan Alves on 06-02-2023 Creatinine [Mass/Vol] 1.07 mg/dL 0.70-1.30 [facility] Eosinophils Auto (Bld) [#/Vo l]Ordered By: Brayan Alves on 06-02-2023 Eosinophils (Bld) [#/Vol] 0.1 10*3/uL 0.0-0.45 [facility] Eosinophils/100 WBC Auto (Bl d)Ordered By: Brayan Alves on 06-02-2023 Eosinophils/100 WBC (Bld) 1.9 % . [facility] Erythrocyte distribution wid th Auto (RBC) [Ratio]Ordered By: Brayan Alves on 06-02-2023 Erythrocyte distribution width (RBC) [Ratio] 13.8 % 12.0-14.8 [facility] Glucose [Mass/volume] in Ser um or PlasmaOrdered By: Brayan Alves on 06-02-2023 Glucose [Mass/Vol] 132 mg/dL 70-100 [facility] Comment on above: ADA recommended refe rence rangeRandom Glucose Reference Range is dependent on time and content of last meal. Glucose of more than 200 mg/dL in a nonstressed, ambulatory subject supports the diagnosis of Diabetes Mellitus. Hematocrit Auto (Bld) [Volum e fraction]Ordered By: Brayan Alves on 06-02-2023 Hematocrit (Bld) [Volume fraction] 35.5 % 38.8-50.0 [facility] Hemoglobin [Mass/volume] in BloodOrdered By: Brayan Alves on 06-02-2023 Hemoglobin (Bld) [Mass/Vol] 12.5 g/dL 13.0-17.0 [facility] Leukocytes [#/volume] correc jamila for nucleated erythrocytes in Blood by Automated counOrdered By: Brayan Alves on 06-02-2023 WBC corrected for nucl RBC Auto (Bld) [#/Vol] 5.7 10*3/uL 4.1-10.5 [facility] Lymphocytes Auto (Bld) [#/Vo l]Ordered By: rBayan Alves on 06-02-2023 Lymphocytes (Bld) [#/Vol] 0.7 10*3/uL 1.00-4.8 [facility] Lymphocytes/100 WBC Auto (Bl d)Ordered By: Brayan Alves on 06-02-2023 Lymphocytes/100 WBC (Bld) 13.2 % . [facility] MCH Auto (RBC) [Entitic mass ]Ordered By: Brayan Alves on 06-02-2023 MCH (RBC) [Entitic mass] 36.2 pg 27.5-35.2 [facility] MCHC Auto (RBC) [Mass/Vol]Or dered By: Brayan Alves on 06-02-2023 MCHC (RBC) [Mass/Vol] 35.2 g/dL 32.5-35.6 [facility] MCV Auto (RBC) [Entitic vol] Ordered By: Brayan Alves on 06-02-2023 MCV (RBC) [Entitic vol] 102.9 fL 83.5-101 [facility] Monocytes Auto (Bld) [#/Vol] Ordered By: Brayan Alves on 06-02-2023 Monocytes (Bld) [#/Vol] 0.9 10*3/uL 0.0-0.8 [facility] Monocytes/100 WBC Auto (Bld) Ordered By: Brayan Alves on 06-02-2023 Monocytes/100 WBC (Bld) 15.7 % . [facility] Neutrophils Auto (Bld) [#/Vo l]Ordered By: Brayan Alves on 06-02-2023 Neutrophils (Bld) [#/Vol] 3.9 10*3/uL 1.8-7.7 [facility] Neutrophils/100 WBC Auto (Bl d)Ordered By: Brayan Alves on 06-02-2023 Neutrophils/100 WBC (Bld) 68.5 % . [facility] No Panel InformationOrdered By: Brayan Alves on 06-02-2023 Estimated GFR (CKD-EPI) > 60.0 mL/Min [facility] Creatinine Clearance (Chem N/A [facility] Nucleated erythrocytes [Pres ence] in Blood by Automated countOrdered By: Brayan Alves on 06-02-2023 Nucleated RBC Auto Ql (Bld) 0.1 /100{WBC} 0-0.5 [facility] Platelet mean volume Auto (B ld) [Entitic vol]Ordered By: Brayan Alves on 06-02-2023 Platelet mean volume (Bld) [Entitic vol] 8.1 fL 6.6-10.1 [facility] Platelets Auto (Bld) [#/Vol] Ordered By: Brayan Alves on 06-02-2023 Platelets (Bld) [#/Vol] 153 10*3/uL 150-450 [facility] Potassium [Moles/volume] in Serum or PlasmaOrdered By: Brayan Alves on 06-02-2023 Potassium [Moles/Vol] 4.8 mmol/L 3.5-5.1 [facility] RBC Auto (Bld) [#/Vol]Ordere d By: Brayan Alves on 06-02-2023 RBC (Bld) [#/Vol] 3.45 10*6/uL 3.90-5.60 [facility] Serum or plasma anion gap de terminationOrdered By: Brayan Alves on 06-02-2023 Anion gap [Moles/Vol] 13.5 mmol/L 6.0-15.0 [facility] Sodium [Moles/volume] in Ser um or PlasmaOrdered By: Brayan Alves on 06-02-2023 Sodium [Moles/Vol] 132 mmol/L 136-145 [facility] Urea nitrogen [Mass/volume] in Serum or PlasmaOrdered By: Brayan Alves on 06-02-2023 Urea nitrogen [Mass/Vol] 12 mg/dL 7-25 [facility] WBC Auto (Bld) [#/Vol]Ordere d By: Brayan Alves on 06-02-2023 WBC (Bld) [#/Vol] 5.7 10*3/uL 4.1-10.5 [facility] Albumin [Mass/volume] in Ser um or Plasma by Bromocresol green (BCG) dye binding methoOrdered By: Rick Ortega on 04-12-2023 Albumin BCG dye [Mass/Vol] 3.0 g/dL 3.5-5.7 [facility] Bilirubin.total [Mass/volume ] in Serum or PlasmaOrdered By: Rick Ortega on 04-12-2023 Bilirubin [Mass/Vol] 1.3 mg/dL 0.3-1.0 [facility] Comment on above: Samples from patient s who have taken Naproxen have shown spurious elevation in Total Bilirubin levels. A metabolite of Naproxen, O-desmethylnaproxen, has been shown to interfere with the Donato method for measuring Total Bilirubin. Calcium [Mass/volume] in Ser um or PlasmaOrdered By: Rick Ortega on 04-12-2023 Calcium [Mass/Vol] 8.3 mg/dL 8.6-10.3 [facility] Carbon dioxide, total [Moles /volume] in Serum or PlasmaOrdered By: Rick Ortega on 04-12-2023 CO2 [Moles/Vol] 27.3 mmol/L 21.0-31.0 [facility] Comprehensive Metabolic Pane mayito 04-12-2023 Albumin [Mass/Vol] 3.745872 g/dL Low 3.5-5.7 g/dL [facility] Instant Opinion Other Bilirubin [Mass/Vol] 1.7190102 mg/dL High 0.3- 1.0 mg/dL [facility] Other Calcium [Mass/Vol] 8.9247078 mg/dL Low 8.6-10 .3 mg/dL [facility] Other CO2 [Moles/Vol] 27.74345245 mmol/L Normal 21.0-3 1.0 mmol/L [facility] Other Creatinine [Mass/Vol] 0.24659509 mg/dL Normal 0. 70-1.30 mg/dL [facility] Other GFR/1.73 sq M.predicted MDRD (S/P/Bld) [Vol rate/Area] mL/min/{1.73_m2} [facility] Other Potassium [Moles/Vol] 5.52660550 mmol/L Normal 3 .5-5.1 mmol/L [facility] Other Protein [Mass/Vol] 6.106043 g/dL Low 6.4-8.9 g/dL [facility] Other Comprehensive Metabolic Panel 3.3 g/dL [facility] Other Comprehensive Metabolic Pane lOrdered By: Rick Ortega on 04-12-2023 Albumin/Globulin [Mass ratio] 0.9 {ratio} [facility] ALP [Catalytic activity/Vol] 158 U/L 34-104 [facility] ALT [Catalytic activity/Vol] 35 U/L 7-52 [facility] AST [Catalytic activity/Vol] 76 U/L 13-39 [facility] Chloride [Moles/Vol] 95 mmol/L 98-107 [facility] Glucose [Mass/Vol] 94 mg/dL 70-100 [facility] Comment on above: ADA recommended refe rence rangeRandom Glucose Reference Range is dependent on time and content of last meal. Glucose of more than 200 mg/dL in a nonstressed, ambulatory subject supports the diagnosis of Diabetes Mellitus. Sodium [Moles/Vol] 127 mmol/L 136-145 [facility] Urea nitrogen [Mass/Vol] 9 mg/dL 7- [facility] Creatinine [Mass/volume] in Serum or PlasmaOrdered By: Rick Ortega on 04-12-2023 Creatinine [Mass/Vol] 0.81 mg/dL 0.70-1.30 [facility] Globulin Calc (S) [Mass/Vol] Ordered By: Rick Ortega on 04-12-2023 Globulin (S) [Mass/Vol] 3.3 g/dL [facility] No Panel InformationOrdered By: Rick Ortega on 04-12-2023 Estimated GFR (CKD-EPI) > 60.0 mL/Min [facility] Creatinine Clearance (Chem N/A [facility] Potassium [Moles/volume] in Serum or PlasmaOrdered By: Rick Ortega on 04-12-2023 Potassium [Moles/Vol] 5.1 mmol/L 3.5-5.1 [facility] Protein [Mass/volume] in Ser um or PlasmaOrdered By: Rick Ortega on 04-12-2023 Protein [Mass/Vol] 6.3 g/dL 6.4-8.9 [facility] Serum or plasma anion gap de terminationOrdered By: Rick Ortega on 04-12-2023 Anion gap [Moles/Vol] 9.8 mmol/L 6.0-15.0 [facility] Actin smooth muscle IgG Ab [ Units/volume] in SerumOrdered By: Lex Carroll on 09-21-2022 Actin smooth muscle IgG Qn (S) 8 Units 0-19 [facility] Comment on above: Negative 0 - 19 Weak positive 20 - 30 Moderate to strong positive >30 Actin Antibodies are found in 52-85% of patients with autoimmune hepatitis or chronic active hepatitis and in 22% of patients with primary biliary cirrhosis. Alanine aminotransferase [En zymatic activity/volume] in Serum or PlasmaOrdered By: Lex Carroll on 09-21-2022 ALT [Catalytic activity/Vol] 30 U/L 7-52 [facility] Albumin [Mass/volume] in Ser um or Plasma by Bromocresol green (BCG) dye binding methoOrdered By: Lex Carroll on 09-21-2022 Albumin BCG dye [Mass/Vol] 3.6 g/dL 3.5-5.7 [facility] Alkaline phosphatase [Enzyma tic activity/volume] in Serum or PlasmaOrdered By: Lex Carroll on 09-21-2022 ALP [Catalytic activity/Vol] 96 U/L 34-104 [facility] Aspartate aminotransferase [ Enzymatic activity/volume] in Serum or PlasmaOrdered By: Lex Carroll on 09-21-2022 AST [Catalytic activity/Vol] 55 U/L 13-39 [facility] Basophils Auto (Bld) [#/Vol] Ordered By: Lex Carroll on 09-21-2022 Basophils (Bld) [#/Vol] 0.0 10*3/uL 0.0-0.2 [facility] Basophils/100 WBC Auto (Bld) Ordered By: Lex Carroll on 09-21-2022 Basophils/100 WBC (Bld) 0.9 % . [facility] Bilirubin.total [Mass/volume ] in Serum or PlasmaOrdered By: Lex Carroll on 09-21-2022 Bilirubin [Mass/Vol] 0.9 mg/dL 0.3-1.0 [facility] Calcium [Mass/volume] in Ser um or PlasmaOrdered By: Lex Carroll on 09-21-2022 Calcium [Mass/Vol] 8.7 mg/dL 8.6-10.3 [facility] Carbon dioxide, total [Moles /volume] in Serum or PlasmaOrdered By: Lex Carroll on 09-21-2022 CO2 [Moles/Vol] 26.9 mmol/L 21.0-31.0 [facility] Chloride [Moles/volume] in S mateo or PlasmaOrdered By: Lex Carroll on 09-21-2022 Chloride [Moles/Vol] 108 mmol/L 98-107 [facility] Cholesterol [Mass/volume] in Serum or PlasmaOrdered By: Lex Carroll on 09-21-2022 Cholesterol [Mass/Vol] 175 mg/dL 140-200 [facility] Comment on above: Chol less than 200 m g/dl low riskChol 201-239 mg/dl borderline riskChol 240 mg/dl and greater high risk Cholesterol in LDL Calc [Mas s/Vol]Ordered By: Lex Carroll on 09-21-2022 Cholesterol in LDL [Mass/Vol] 94 mg/dL 0-100 [facility] Comment on above: LDL ATP III CLASSIFI CATIONLDL less than 100 mg/dL OptimalLDL 100-129 mg/dL Near or above optimalLDL 130-159 mg/dL Borderline highLDL 160-189 mg/dL HighLDL greater than 189 mg/dL Very high Cholesterol in VLDL Calc [Ma ss/Vol]Ordered By: Lex Carroll on 09-21-2022 Cholesterol in VLDL [Mass/Vol] 21 mg/dL [facility] Creatinine [Mass/volume] in Serum or PlasmaOrdered By: Lex Carroll on 09-21-2022 Creatinine [Mass/Vol] 0.90 mg/dL 0.70-1.30 [facility] Eosinophils Auto (Bld) [#/Vo l]Ordered By: Lex Carroll on 09-21-2022 Eosinophils (Bld) [#/Vol] 0.2 10*3/uL 0.0-0.45 [facility] Eosinophils/100 WBC Auto (Bl d)Ordered By: Lex Carroll on 09-21-2022 Eosinophils/100 WBC (Bld) 3.6 % . [facility] Erythrocyte distribution wid th Auto (RBC) [Ratio]Ordered By: Lex Carroll on 09-21-2022 Erythrocyte distribution width (RBC) [Ratio] 14.2 % 12.0-14.8 [facility] Globulin Calc (S) [Mass/Vol] Ordered By: Lex Carroll on 09-21-2022 Globulin (S) [Mass/Vol] 2.8 g/dL [facility] Glucose [Mass/volume] in Ser um or PlasmaOrdered By: Lex Carroll on 09-21-2022 Glucose [Mass/Vol] 123 mg/dL 70-100 [facility] Comment on above: ADA recommended refe rence rangeRandom Glucose Reference Range is dependent on time and content of last meal. Glucose of more than 200 mg/dL in a nonstressed, ambulatory subject supports the diagnosis of Diabetes Mellitus. Hematocrit Auto (Bld) [Volum e fraction]Ordered By: Lex Carroll on 09-21-2022 Hematocrit (Bld) [Volume fraction] 37.5 % 38.8-50.0 [facility] Hemoglobin [Mass/volume] in BloodOrdered By: Lex Carroll on 09-21-2022 Hemoglobin (Bld) [Mass/Vol] 12.9 g/dL 13.0-17.0 [facility] Hepatitis B virus surface Ag [Presence] in Serum or Plasma by ImmunoassayOrdered By: Lex Carroll on 09-21-2022 HBV surface Ag IA Ql Negative Negative [facility] Hepatitis C virus IgG Ab [Pr esence] in Serum or Plasma by ImmunoassayOrdered By: Lex Carroll on 09-21-2022 HCV IgG IA Ql Non-Reactive Non Reactive [facility] - CoagulationOrde red By: Lex Carroll on 09-21-2022 PT Coag (PPP) [Time] 13.0 s 9.0-12.9 [facility] Leukocytes [#/volume] correc jamila for nucleated erythrocytes in Blood by Automated counOrdered By: Lex Carroll on 09-21-2022 WBC corrected for nucl RBC Auto (Bld) [#/Vol] 4.2 10*3/uL 4.1-10.5 [facility] Lymphocytes Auto (Bld) [#/Vo l]Ordered By: Lxe Carroll on 09-21-2022 Lymphocytes (Bld) [#/Vol] 1.1 10*3/uL 1.00-4.8 [facility] Lymphocytes/100 WBC Auto (Bl d)Ordered By: Lex Carroll on 09-21-2022 Lymphocytes/100 WBC (Bld) 27.1 % . [facility] MCH Auto (RBC) [Entitic mass ]Ordered By: Lex Carroll on 09-21-2022 MCH (RBC) [Entitic mass] 35.0 pg 27.5-35.2 [facility] MCHC Auto (RBC) [Mass/Vol]Or dered By: Lex Carroll on 09-21-2022 MCHC (RBC) [Mass/Vol] 34.4 g/dL 32.5-35.6 [facility] MCV Auto (RBC) [Entitic vol] Ordered By: Lex Carroll on 09-21-2022 MCV (RBC) [Entitic vol] 101.9 fL 83.5-101 [facility] Monocytes Auto (Bld) [#/Vol] Ordered By: Lex Carroll on 09-21-2022 Monocytes (Bld) [#/Vol] 0.5 10*3/uL 0.0-0.8 [facility] Monocytes/100 WBC Auto (Bld) Ordered By: Lex Carroll on 09-21-2022 Monocytes/100 WBC (Bld) 11.3 % . [facility] Neutrophils Auto (Bld) [#/Vo l]Ordered By: Lex Carroll on 09-21-2022 Neutrophils (Bld) [#/Vol] 2.4 10*3/uL 1.8-7.7 [facility] Neutrophils/100 WBC Auto (Bl d)Ordered By: Lex Carroll on 09-21-2022 Neutrophils/100 WBC (Bld) 57.1 % . [facility] No Panel InformationOrdered By: Lex Carroll on 09-21-2022 Estimated GFR (CKD-EPI) > 60.0 mL/Min [facility] Hepatitis B Core Total Antibody Negative Negative [facility] Comment on above: Performed at: - [address] [id number] Director: John Tang PhD, Phone: [phone] Hepatitis C Interpretation See comment . [facility] Comment on above: Not infected with HC V unless early or acute infection issuspected (which may be delayed in an immunocompromisedindividual), or other evidence exists to indicate HCVinfection. Hepatitis C RNA Quantitative N/A [facility] Creatinine Clearance (Chem 88.23 [facility] Nucleated erythrocytes [Pres ence] in Blood by Automated countOrdered By: Lex Carroll on 09-21-2022 Nucleated RBC Auto Ql (Bld) 0.2 /100{WBC} 0-0.5 [facility] Platelet mean volume Auto (B ld) [Entitic vol]Ordered By: Lex Carroll on 09-21-2022 Platelet mean volume (Bld) [Entitic vol] 9.8 fL 6.6-10.1 [facility] Platelet poor plasma interna tional normalized ratio (INR) by coagulation assay (relatOrdered By: Lxe Carroll on 09-21-2022 INR Coag (PPP) [Relative time] 1.1 {INR} [facility] Comment on above: INR Therapeutic Rang e [...] 09-21-2022 Platelets (Bld) [#/Vol] 91 10*3/uL 150-450 [facility] Potassium [Moles/volume] in Serum or PlasmaOrdered By: Lex Carroll on 09-21-2022 Potassium [Moles/Vol] 5.0 mmol/L 3.5-5.1 [facility] Protein [Mass/volume] in Ser um or PlasmaOrdered By: Lex Carroll on 09-21-2022 Protein [Mass/Vol] 6.4 g/dL 6.4-8.9 [facility] RBC Auto (Bld) [#/Vol]Ordere d By: Lex Carroll on 09-21-2022 RBC (Bld) [#/Vol] 3.68 10*6/uL 3.90-5.60 [facility] Serum [id number] me asurementOrdered By: Lex Carroll on 09-21-2022 Alpha 1 antitrypsin [Mass/Vol] 205 mg/dL 101-187 [facility] Serum hepatitis B virus surf waldo antibody detectionOrdered By: Lex Carroll on 09-21-2022 HBV surface Ab Ql (S) Non-Reactive . [facility] Comment on above: Non Reactive: Incons istent with immunity, less than 10 mIU/mL Reactive: Consistent with immunity, greater than 9.9 mIU/mL Serum mitochondria M2 IgG an tibody assay (units/volume)Ordered By: Lex Carroll on 09-21-2022 Mitochondria M2 IgG Qn (S) <20.0 Units 0.0-20.0 [facility] Comment on above: Negative 0.0 - 20.0 Equivocal 20.1 - 24.9 Positive >24.9Mitochondrial (M2) Antibodies are found in 90-96% ofpatients with primary biliary cirrhosis.Performed at: [facility] [address] [id number] Director: John Tang PhD, Phone: [phone] Serum or plasma albumin/glob ulin mass ratioOrdered By: Lex Carroll on 09-21-2022 Albumin/Globulin [Mass ratio] 1.3 {ratio} [facility] Serum or plasma alpha 1 anti trypsin phenotyping identification by immunofixationOrdered By: Lex Carroll on 09-21-2022 Alpha 1 antitrypsin phenotyping Immunofixation Nom Mm . [facility] Comment on above: Phenotype Population A-1-AT Concentration* [...] reference. Ranges used to confirm phenotype.Performed at: [facility] [id number] Director: John Tang PhD, Phone: [phone] at: [facility] [address] [id number] Director: George Brown MD, Phone: [phone] Serum or plasma anion gap de terminationOrdered By: Lex Carroll on 09-21-2022 Anion gap [Moles/Vol] 11.1 mmol/L 6.0-15.0 [facility] Serum or plasma ceruloplasmi n measurement (mass/volume)Ordered By: Lex Carroll on 09-21-2022 Ceruloplasmin [Mass/Vol] 22.4 mg/dL 16.0-31.0 [facility] Comment on above: Performed at: [employer] [address] [id number] Director: John Tang PhD, Phone: [phone] Serum or plasma free cefurox nhi measurement (mass/volume)Ordered By: Lex Carroll on 09-21-2022 Cefuroxime free [Mass/Vol] Negative Negative [facility] Comment on above: Performed at: [employer] [id number] Director: John Tang PhD, Phone: [phone] Serum or plasma high density lipoprotein (HDL) cholesterol measurementOrdered By: Lex Carroll on 09-21-2022 Cholesterol in HDL [Mass/Vol] 60 mg/dL 23-92 [facility] Comment on above: HDL CHOL ATP-III CLA SSIFICATION Cardiovascular RiskHDL > or equal to 60 mg/dL LOWHDL < 40 mg/dL HIGH Serum or plasma total choles terol/high density lipoprotein (HDL) cholesterol mass ratOrdered By: Lex Carroll on 09-21-2022 Cholesterol.total/Chol esterol in HDL [Mass ratio] 2.9 {ratio} <5.0 [facility] Sodium [Moles/volume] in Ser um or PlasmaOrdered By: Lex Carroll on 09-21-2022 Sodium [Moles/Vol] 141 mmol/L 136-145 [facility] Triglyceride [Mass/volume] i n Serum or PlasmaOrdered By: Lex Carroll on 09-21-2022 Triglyceride [Mass/Vol] 107 mg/dL 0-149 [facility] Comment on above: TRIG ATP III CLASSIF ICATIONTRIG less than 150 mg/dL NormalTRIG 150-199 mg/dL Borderline highTRIG 200-500 mg/dL High TRIG greater than 500 mg/dL Very highStandard traceable to the Center for Disease Conrtrol and Prevention (CDC) test method. Urea nitrogen [Mass/volume] in Serum or PlasmaOrdered By: Lex Carroll on 09-21-2022 Urea nitrogen [Mass/Vol] 9 mg/dL 7-25 [facility] WBC Auto (Bld) [#/Vol]Ordere d By: Lex Carroll on 09-21-2022 WBC (Bld) [#/Vol] 4.2 10*3/uL 4.1-10.5 [facility] Vital Signs Date Time Vital Sign Value Performing Clinician Facility 11-13-2024 17:30-0400 Diastolic blood pressure 80 mm[Hg] Jane Correia MD Work Phone: [facility] 11-13-2024 17:30-0400 Heart rate 74 /min Jane Correia MD Work Phone: [facility] 11-13-2024 17:30-0400 Respiratory rate 18 /min Jane Correia MD Work Phone: [facility] 11-13-2024 17:30-0400 SaO2% (BldA) [Mass fraction] 93 % Jane Correia MD Work Phone: [facility] 11-13-2024 17:30-0400 Systolic blood pressure 122 mm[Hg] Jane Correia MD Work Phone: [facility] 11-13-2024 15:30-0400 Body temperature 97.2 [degF] Jane Correia MD Work Phone: [facility] 11-13-2024 14:26-0400 Body height 175.3 cm Jane Correia MD Work Phone: [facility] 11-13-2024 14:26-0400 Body mass index (BMI) [Ratio] 22.15 kg/m2 Jane Correia MD Work Phone: [facility] 11-13-2024 14:26-0400 Body weight 68.04 kg Jane Correia MD Work Phone: [facility] 08-19-2024 11:11-0400 Body height 175.3 cm Xuan Hemmer PA Work Phone: [facility] 08-19-2024 11:11-0400 Body mass index (BMI) [Ratio] 28.5 kg/m2 Xuan Hemmer PA Work Phone: [facility] 08-19-2024 11:11-0400 Body temperature 97 [degF] Xuan Hemmer PA Work Phone: [facility] 08-19-2024 11:11-0400 Body weight 87.54 kg Xuan Hemmer PA Work Phone: [facility] 08-19-2024 11:11-0400 Diastolic blood pressure 76 mm[Hg] Xuan Hemmer PA Work Phone: [facility] 08-19-2024 11:11-0400 Heart rate 82 /min Xuan Hemmer PA Work Phone: [facility] 08-19-2024 11:11-0400 Respiratory rate 16 /min Xuan Hemmer PA Work Phone: [facility] 08-19-2024 11:11-0400 SaO2% (BldA) [Mass fraction] 98 % Xuan Hemmer PA Work Phone: [facility] 08-19-2024 11:11-0400 Systolic blood pressure 100 mm[Hg] Xaun MALDONADO Work Phone: [facility] 07-30-2024 12:47-0400 Diastolic blood pressure 72 mm[Hg] Sanjay Robledo II Work Phone: [facility] 07-30-2024 12:47-0400 Heart rate 90 /min Sanjayra Robledo II Work Phone: [facility] 07-30-2024 12:47-0400 Respiratory rate 20 /min Sanjay Robledo II Work Phone: [facility] 07-30-2024 12:47-0400 SaO2% (BldA) [Mass fraction] 97 % Sanjay Robledo II Work Phone: [facility] 07-30-2024 12:47-0400 Systolic blood pressure 110 mm[Hg] Sanjay Robledo II Work Phone: [facility] 07-30-2024 10:24-0400 Body height 175.26 cm Sanjay Robledo II Work Phone: [facility] 07-30-2024 10:24-0400 Body weight 81.64 kg Sanjay Robledo II Work Phone: [facility] 07-25-2024 13:38-0400 Body mass index (BMI) [Ratio] 26.89 kg/m2 Derrick Harris MD Work Phone: [facility] 07-25-2024 13:38-0400 Body temperature 98.4 [degF] Derrick Harris MD Work Phone: [facility] 07-25-2024 13:38-0400 Body weight 82.6 kg Derrick Harris MD Work Phone: [facility] 07-25-2024 13:38-0400 Diastolic blood pressure 71 mm[Hg] Derrick Harris MD Work Phone: [facility] Comment on above: Copied from previous appt 07-25-2024 13:38-0400 Heart rate 53 /min Derrick Harris MD Work Phone: [facility] 07-25-2024 13:38-0400 Respiratory rate 18 /min Derrick Harris MD Work Phone: [facility] 07-25-2024 13:38-0400 SaO2% (BldA) [Mass fraction] 98 % Derrick Harris MD Work Phone: [facility] 07-25-2024 13:38-0400 Systolic blood pressure 107 mm[Hg] Derrick Harris MD Work Phone: [facility] Comment on above: Copied from previous appt 07-25-2024 11:40-0400 Body height 175.3 cm Dmitri Reyes MD Work Phone: [facility] 07-25-2024 11:40-0400 Body mass index (BMI) [Ratio] 26.88 kg/m2 Dmitri Reyes MD Work Phone: [facility] 07-25-2024 11:40-0400 Body temperature 98.4 [degF] Dmitri Reyes MD Work Phone: [facility] 07-25-2024 11:40-0400 Body weight 82.56 kg Dmitri Reyes MD Work Phone: [facility] 07-25-2024 11:40-0400 Diastolic blood pressure 71 mm[Hg] Dmitri Reyes MD Work Phone: [facility] 07-25-2024 11:40-0400 Heart rate 53 /min Dmitri Reyes MD Work Phone: [facility] 07-25-2024 11:40-0400 SaO2% (BldA) [Mass fraction] 98 % Dmitri Reyes MD Work Phone: [facility] 07-25-2024 11:40-0400 Systolic blood pressure 107 mm[Hg] Dmitri Reyes MD Work Phone: [facility] 07-05-2024 10:44-0400 Body mass index (BMI) [Ratio] 24.55 kg/m2 Morales Gregg MD Work Phone: [facility] 07-05-2024 10:44-0400 Body weight 75.4 kg Morales Gregg MD Work Phone: [facility] 07-05-2024 10:40-0400 Heart rate 53 /min Morales Gregg MD Work Phone: [facility] 07-05-2024 10:40-0400 SaO2% (BldA) [Mass fraction] 95 % Morales Gregg MD Work Phone: [facility] 07-05-2024 10:30-0400 Diastolic blood pressure 59 mm[Hg] Morales Gregg MD Work Phone: [facility] 07-05-2024 10:30-0400 Systolic blood pressure 96 mm[Hg] Morales Gregg MD Work Phone: [facility] 07-05-2024 08:51-0400 Body temperature 97.7 [degF] Morales Gregg MD Work Phone: [facility] 07-05-2024 08:51-0400 Respiratory rate 16 /min Morales Gregg MD Work Phone: [facility] 06-19-2024 14:34-0500 Diastolic blood pressure 58 mm[Hg] Sanjay Robledo II Work Phone: [facility] 06-19-2024 14:34-0500 Heart rate 48 /min Sanjay Robledo II Work Phone: [facility] 06-19-2024 14:34-0500 Respiratory rate 18 /min Sanjay Robledo II Work Phone: [facility] 06-19-2024 14:34-0500 SaO2% (BldA) [Mass fraction] 94 % Sanjayra Robledo II Work Phone: [facility] 06-19-2024 14:34-0500 Systolic blood pressure 90 mm[Hg] Sanjay Robledo II Work Phone: [facility] 06-19-2024 12:13-0500 Body height 175.26 cm Sanjay Robledo II Work Phone: [facility] 06-19-2024 12:13-0500 Body weight 79.37 kg Sanjay Robledo II Work Phone: [facility] 05-31-2024 10:00-0500 Body mass index (BMI) [Ratio] 24.35 kg/m2 [facility] [address] 05-31-2024 10:00-0500 Body weight 74.8 kg [facility] [address] 05-31-2024 10:00-0500 Diastolic blood pressure 59 mm[Hg] [facility] [address] 05-31-2024 10:00-0500 Heart rate 51 /min [facility] [address] 05-31-2024 10:00-0500 SaO2% (BldA) [Mass fraction] 99 % [facility] [address] 05-31-2024 10:00-0500 Systolic blood pressure 98 mm[Hg] [facility]ology [address] 05-31-2024 08:43-0500 Body height 175.3 cm Hep[facility] [address] 05-31-2024 08:43-0500 Body temperature 97.5 [degF] Hepatology [address] 05-31-2024 08:43-0500 Respiratory rate 16 /min Hepatology [address] 05-30-2024 16:04-0500 Diastolic blood pressure 56 mm[Hg] Marlee Patrick MD Work Phone: [facility] 05-30-2024 16:04-0500 Heart rate 52 /min Marlee Patrick MD Work Phone: [facility] 05-30-2024 16:04-0500 Respiratory rate 16 /min Marlee Patrick MD Work Phone: [facility] 05-30-2024 16:04-0500 SaO2% (BldA) [Mass fraction] 96 % Marlee Patrick MD Work Phone: [facility] 05-30-2024 16:04-0500 Systolic blood pressure 99 mm[Hg] Marlee Patrick MD Work Phone: [facility] 05-30-2024 15:14-0500 Body temperature 96.8 [degF] Marlee Patrick MD Work Phone: [facility] 05-23-2024 11:01-0500 Body mass index (BMI) [Ratio] 24.93 kg/m2 Brisa Bull MD Work Phone: [facility] 05-23-2024 11:01-0500 Body temperature 97.11 [degF] Brisa Bull MD Work Phone: [facility] 05-23-2024 11:01-0500 Body weight 77.7 kg Brisa Bull MD Work Phone: [facility] 05-23-2024 11:01-0500 Diastolic blood pressure 66 mm[Hg] Brisa Bull MD Work Phone: [facility] 05-23-2024 11:01-0500 Heart rate 60 /min Brisa Bull MD Work Phone: [facility] 05-23-2024 11:01-0500 Respiratory rate 16 /min Brisa Bull MD Work Phone: [facility] 05-23-2024 11:01-0500 SaO2% (BldA) [Mass fraction] 100 % Brisa Bull MD Work Phone: [facility] 05-23-2024 11:01-0500 Systolic blood pressure 101 mm[Hg] Brisa Bull MD Work Phone: [facility] 05-23-2024 10:41-0500 Body mass index (BMI) [Ratio] 24.93 kg/m2 Pulm 8 [facility] 05-23-2024 10:41-0500 Body weight 77.7 kg Pulm 8 [facility] 05-02-2024 14:46-0500 Diastolic blood pressure 64 mm[Hg] Brisa Seals MD Work Phone: [facility] 05-02-2024 14:46-0500 Heart rate 60 /min Brisa Seals MD Work Phone: [facility] 05-02-2024 14:46-0500 Respiratory rate 17 /min Brisa Seals MD Work Phone: [facility] 05-02-2024 14:46-0500 SaO2% (BldA) [Mass fraction] 97 % Brisa Seals MD Work Phone: [facility] 05-02-2024 14:46-0500 Systolic blood pressure 108 mm[Hg] Brisa Seals MD Work Phone: [facility] 05-02-2024 12:29-0500 Diastolic blood pressure 64 mm[Hg] Jade Arora MD Work Phone: [facility] 05-02-2024 12:29-0500 Systolic blood pressure 108 mm[Hg] Jade Arora MD Work Phone: [facility] 05-02-2024 12:28-0500 Body height 176.5 cm Jade Arora MD Work Phone: [facility] 05-02-2024 12:28-0500 Body mass index (BMI) [Ratio] 25.62 kg/m2 Jade Arora MD Work Phone: [facility] 05-02-2024 12:28-0500 Body weight 79.83 kg Jade Arora MD Work Phone: [facility] 05-02-2024 12:28-0500 Heart rate 52 /min Jade Arora MD Work Phone: [facility] 05-02-2024 12:28-0500 SaO2% (BldA) [Mass fraction] 97 % Jade Arora MD Work Phone: [facility] 05-01-2024 12:00-0500 Diastolic blood pressure 71 mm[Hg] Hepatology Q3 [facility] 05-01-2024 12:00-0500 Heart rate 50 /min Hepatology Q3 [facility] 05-01-2024 12:00-0500 Respiratory rate 18 /min Hepatology Q3 [facility] 05-01-2024 12:00-0500 SaO2% (BldA) [Mass fraction] 100 % Hepatology [address] 05-01-2024 12:00-0500 Systolic blood pressure 119 mm[Hg] Hepatology [address] 05-01-2024 11:50-0500 Body mass index (BMI) [Ratio] 24.81 kg/m2 Hepatology [address] 05-01-2024 11:50-0500 Body weight 76.2 kg Hepatology [address] Comment on above: post para weight 05-01-2024 10:22-0500 Body height 175.3 cm Hepatology [address] 05-01-2024 10:22-0500 Body temperature 97.3 [degF] Hepatology [address] 05-01-2024 07:50-0500 Body height 176.5 cm [facility] Work Phone: [facility] 05-01-2024 07:50-0500 Body mass index (BMI) [Ratio] 26.06 kg/m2 [facility] Work Phone: [facility] 05-01-2024 07:50-0500 Body temperature 97.59 [degF] [facility] Work Phone: [facility] 05-01-2024 07:50-0500 Body weight 81.19 kg [facility] Work Phone: [facility] 05-01-2024 07:50-0500 Diastolic blood pressure 69 mm[Hg] [facility] Work Phone: [facility] 05-01-2024 07:50-0500 Heart rate 56 /min [facility] Work Phone: [facility] 05-01-2024 07:50-0500 Respiratory rate 16 /min [facility] Work Phone: [facility] 05-01-2024 07:50-0500 SaO2% (BldA) [Mass fraction] 97 % [facility] Work Phone: [facility] 05-01-2024 07:50-0500 Systolic blood pressure 115 mm[Hg] [facility] Work Phone: [facility] 04-30-2024 12:49-0500 Body height 176.5 cm Hal Weir MD Work Phone: [facility] 04-30-2024 12:49-0500 Body mass index (BMI) [Ratio] 26.06 kg/m2 Hal Weir MD Work Phone: [facility] 04-30-2024 12:49-0500 Body temperature 97.2 [degF] Hal Weir MD Work Phone: [facility] 04-30-2024 12:49-0500 Body weight 81.19 kg Hal Weir MD Work Phone: [facility] 04-30-2024 12:49-0500 Diastolic blood pressure 70 mm[Hg] Hal Weir MD Work Phone: [facility] 04-30-2024 12:49-0500 Heart rate 53 /min Hal Weir MD Work Phone: [facility] 04-30-2024 12:49-0500 Respiratory rate 12 /min Hal Weir MD Work Phone: [facility] 04-30-2024 12:49-0500 SaO2% (BldA) [Mass fraction] 98 % Hal Weir MD Work Phone: [facility] 04-30-2024 12:49-0500 Systolic blood pressure 106 mm[Hg] Hal Weir MD Work Phone: [facility] 04-29-2024 14:41-0500 Body height 176.5 cm Dmitri Reyes MD Work Phone: [facility] 04-29-2024 14:41-0500 Body mass index (BMI) [Ratio] 26.06 kg/m2 Dmitri Reyes MD Work Phone: [facility] 04-29-2024 14:41-0500 Body temperature 96.8 [degF] Dmitri Reyes MD Work Phone: [facility] 04-29-2024 14:41-0500 Body weight 81.19 kg Dmitri Reyes MD Work Phone: [facility] 04-29-2024 14:41-0500 Diastolic blood pressure 71 mm[Hg] Dmitri Reyes MD Work Phone: [facility] 04-29-2024 14:41-0500 Heart rate 50 /min Dmitri Reyes MD Work Phone: [facility] 04-29-2024 14:41-0500 Respiratory rate 12 /min Dmitri Reyes MD Work Phone: [facility] 04-29-2024 14:41-0500 SaO2% (BldA) [Mass fraction] 96 % Dmitri Reyes MD Work Phone: [facility] 04-29-2024 14:41-0500 Systolic blood pressure 114 mm[Hg] Dmitri Reyes MD Work Phone: [facility] 04-29-2024 10:58-0500 Body height 176.5 [address]rt[address]ic-Sandy RD Work Phone: [facility] 04-29-2024 10:58-0500 Body mass index (BMI) [Ratio] 26.1 kg/m2 Ivelisse Crtalic-Sandy RD Work Phone: [facility] 04-29-2024 10:58-0500 Body weight 81.33 kg [address] Crtalic-Sandy RD Work Phone: [facility] 12-13-2023 13:44-0400 Body height 175.3 cm Xuan Hemmer PA Work Phone: [facility] 12-13-2023 13:44-0400 Body mass index (BMI) [Ratio] 27.67 kg/m2 Xuan Hemmer PA Work Phone: [facility] 12-13-2023 13:44-0400 Body weight 85 kg Xuan Hemmer PA Work Phone: [facility] 12-13-2023 13:44-0400 Diastolic blood pressure 78 mm[Hg] Xuan Hemmer PA Work Phone: [facility] 12-13-2023 13:44-0400 Heart rate 84 /min Xuan Hemmer PA Work Phone: [facility] 12-13-2023 13:44-0400 Respiratory rate 18 /min Xuan Hemmer PA Work Phone: [facility] 12-13-2023 13:44-0400 SaO2% (BldA) [Mass fraction] 97 % Xuan Hemmer PA Work Phone: [facility] 12-13-2023 13:44-0400 Systolic blood pressure 100 mm[Hg] Xuan Hemmer PA Work Phone: [facility] 07-05-2023 08:58-0400 Body weight 94.85 kg II Sanjay Robledo Work Phone: [facility] 07-05-2023 08:58-0400 Diastolic blood pressure 71 mm[Hg] II Sanjay Robledo Work Phone: [facility] 07-05-2023 08:58-0400 Heart rate 88 /min II Sanjay Robledo Work Phone: [facility] 07-05-2023 08:58-0400 Systolic blood pressure 121 mm[Hg] II Sanjay Robledo Work Phone: [facility] 06-13-2023 17:15-0500 Diastolic blood pressure 62 mm[Hg] II Sanjay Robledo Work Phone: [facility] 06-13-2023 17:15-0500 Heart rate 72 /min II Sanjay Robledo Work Phone: [facility] 06-13-2023 17:15-0500 Respiratory rate 20 /min II Sanjay Robledo Work Phone: [facility] 06-13-2023 17:15-0500 SaO2% (BldA) [Mass fraction] 94 % II Sanjay Robledo Work Phone: [facility] 06-13-2023 17:15-0500 Systolic blood pressure 101 mm[Hg] II Sanjay Robledo Work Phone: [facility] 06-13-2023 13:38-0500 Body height 175.26 cm II Sanjay Robledo Work Phone: [facility] 06-13-2023 13:38-0500 Body mass index (BMI) [Ratio] 31.1 kg/m2 II Sanjay Robledo Work Phone: [facility] 06-13-2023 13:38-0500 Body weight 95.7 kg II Sanjay Robledo Work Phone: [facility] 06-13-2023 12:05-0500 Body temperature 98.2 [degF] II Sanjay Robledo Work Phone: [facility] 05-31-2023 15:07-0500 Body height 175.3 cm Brayan Itzkowitz DO Work Phone: [facility] 05-31-2023 15:07-0500 Body mass index (BMI) [Ratio] 32.05 kg/m2 Brayan Itzkowitz DO Work Phone: [facility] 05-31-2023 15:07-0500 Body weight 98.43 kg Brayan Itzkowitz DO Work Phone: [facility] 05-31-2023 15:07-0500 Diastolic blood pressure 72 mm[Hg] Brayan Itzkowitz DO Work Phone: [facility] 05-31-2023 15:07-0500 Systolic blood pressure 120 mm[Hg] Brayan Itzkowitz DO Work Phone: [facility] 05-23-2023 06:44-0500 Body height 175.26 cm II Sanjay Robledo Work Phone: [facility] 05-23-2023 06:44-0500 Body weight 99.79 kg II Sanjay Robledo Work Phone: [facility] 05-18-2023 14:04-0500 Body height 175.3 cm Brayan Itzkowitz DO Work Phone: [facility] 05-18-2023 14:04-0500 Body mass index (BMI) [Ratio] 32.78 kg/m2 Brayan Itzkowitz DO Work Phone: [facility] 05-18-2023 14:04-0500 Body weight 100.7 kg Brayan Itzkowitz DO Work Phone: [facility] 05-18-2023 14:04-0500 Diastolic blood pressure 74 mm[Hg] Brayan Itzkowitz DO Work Phone: [facility] 05-18-2023 14:04-0500 Systolic blood pressure 120 mm[Hg] Brayan Itzkowitz DO Work Phone: [facility] 04-12-2023 11:00-0500 Body height 175.26 cm Rick Ortega Other [facility] 04-12-2023 11:00-0500 Body mass index (BMI) [Ratio] 33.22 kg/m2 Rick Ortega Other [facility] [employer] Other 04-12-2023 11:00-0500 Body weight 102.06 kg Rick Ortega Other [facility] [employer] Other 04-12-2023 11:00-0500 Body weight 102.05 kg JUDITH Sanjay Robledo Work Phone: [facility] 04-12-2023 11:00-0500 Diastolic blood pressure 67 mm[Hg] Rick Ortega Other [facility] 04-12-2023 11:00-0500 Systolic blood pressure 135 mm[Hg] Rick Ortega Other [facility] 11-10-2022 11:00-0400 Body weight 99.79 kg Rick Ortega Other [facility] [employer] Other 11-10-2022 11:00-0400 Diastolic blood pressure 74 mm[Hg] Rick Ortega Other [facility] [employer] Other 11-10-2022 11:00-0400 Systolic blood pressure 127 mm[Hg] Rick Ortega Other [facility] [employer] Other 09-21-2022 08:49-0400 Diastolic blood pressure 78 mm[Hg] II Sanjay Robledo Work Phone: [facility] 09-21-2022 08:49-0400 Heart rate 50 /min II Sanjay Robledo Work Phone: [facility] 09-21-2022 08:49-0400 SaO2% (BldA) [Mass fraction] 99 % II Sanjay Robledo Work Phone: [facility] 09-21-2022 08:49-0400 Systolic blood pressure 125 mm[Hg] II Sanjay Robledo Work Phone: [facility] 09-21-2022 07:36-0400 Body height 175.26 cm II Sanjay Robledo Work Phone: [facility] 09-21-2022 07:36-0400 Body temperature 98.5 [degF] II Sanjay Robledo Work Phone: [facility] 09-21-2022 07:36-0400 Body weight 95.25 kg II Sanjay Robledo Work Phone: [facility] 09-21-2022 07:36-0400 Respiratory rate 16 /min II Sanjay Robledo Work Phone: [facility] Encounters Encounter Date Encounter Type Care Provider Facility Start: 11-15-2024 End: 11-15-2024 ambulatory Jennie Nicholson MD Work Phone: Infectious Disease Comment on above: [employer] Start: 11-15-2024 End: 11-15-2024 Clinisync Result Encounter Generic External Data Provider [facility] External Department Unsolicited Start: 11-15-2024 End: 11-15-2024 Clinisync Result Encounter Generic External Data Provider [facility] External Department Unsolicited Start: 11-14-2024 End: 11-14-2024 Office outpatient visit 25 minutes Jennie Nicholson MD Work Phone: Infectious Disease Comment on above: 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) Start: 11-14-2024 End: 11-14-2024 ambulatory SANJAY Patricia ROBLEDO II Facility:[facility] Start: 11-14-2024 End: 11-14-2024 Clinisync Result Encounter Generic External Data Provider [facility] External Department Unsolicited Start: 11-14-2024 End: 11-14-2024 Clinisync Result Encounter Generic External Data Provider [facility] External Department Unsolicited Start: 11-13-2024 End: 11-13-2024 Clinisync Result Encounter Generic External Data Provider [facility] External Department Unsolicited Start: 11-13-2024 End: 11-13-2024 Clinisync Result Encounter Generic External Data Provider [facility] External Department Unsolicited Start: 11-13-2024 End: 11-13-2024 Orders Only Jane Correia MD Work Phone: Gastroenterology Comment on above: Bile duct stricture (HCC) (Primary Dx) 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, 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] Start: 11-12-2024 End: 11-12-2024 Refill Carina Ziegler RN [facility] Start: 11-11-2024 End: 11-11-2024 Clinisync Result Encounter Generic External Data Provider [facility] External Department Unsolicited Start: 11-11-2024 End: 11-11-2024 Clinisync Result Encounter Generic External Data Provider [facility] External Department Unsolicited Start: 11-11-2024 End: 11-12-2024 Telephone encounter Oksana Fatima RNfacility service manager Comment on above: [employer] - [employer] Start: 11-08-2024 End: 11-08-2024 Clinisync Result Encounter Generic External Data Provider [facility] External Department Unsolicited Start: 11-08-2024 End: 11-08-2024 Clinisync Result Encounter Generic External Data Provider [facility] External Department Unsolicited Start: 11-07-2024 End: 11-07-2024 ambulatory Deal Yarely Maldonado [facility] Infectious Disease Comment on above: [employer] Management (La b review) Start: 11-07-2024 End: 11-07-2024 Clinisync Result Encounter Generic External Data Provider [facility] External Department Unsolicited Start: 11-07-2024 End: 11-07-2024 Clinisync Result Encounter Generic External Data Provider [facility] External Department Unsolicited Start: 11-06-2024 End: 11-11-2024 ambulatory Carina Ziegler nurse practitioner Center Start: 11-06-2024 End: 11-11-2024 Patient encounter procedure Carina Ziegler nurse practitioner Center Comment on above: Appt 11-13 Start: 11-05-2024 End: 11-05-2024 Orders Only Carina Ziegler nurse practitioner Center Start: 11-04-2024 End: 11-04-2024 Clinisync Result Encounter Generic External Data Provider [facility] External Department Unsolicited Start: 11-04-2024 End: 11-04-2024 Clinisync Result Encounter Generic External Data Provider [facility] External Department Unsolicited Start: 11-02-2024 End: 11-02-2024 Clinisync Result Encounter Generic External Data Provider [facility] External Department Unsolicited Start: 11-02-2024 End: 11-02-2024 Clinisync Result Encounter Generic External Data Provider [facility] External Department Unsolicited Start: 11-01-2024 End: 11-01-2024 Clinisync Result Encounter Generic External Data Provider [facility] External Department Unsolicited Start: 11-01-2024 End: 11-01-2024 Clinisync Result Encounter Generic External Data Provider [facility] External Department Unsolicited Start: 10-31-2024 End: 10-31-2024 ambulatory Say Maldonado [facility] Infectious Disease Start: 10-31-2024 End: 10-31-2024 Clinisync Result Encounter Generic External Data Provider [facility] External Department Unsolicited Start: 10-31-2024 End: 10-31-2024 Clinisync Result Encounter Generic External Data Provider [facility] External Department Unsolicited Start: 10-31-2024 End: 10-31-2024 Patient encounter procedure Say Maldonado [facility] Infectious Disease Comment on above: 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; 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 Start: 10-30-2024 End: 11-15-2024 ambulatory DAVID CRUZ Facility:[facility] Start: 10-30-2024 End: 11-15-2024 Subsequent hospital visit by physician David Cruz DO Work Phone: [facility] Start: 10-30-2024 End: 11-04-2024 Clinisync Result Encounter Generic External Data Provider [facility] External Department Unsolicited Start: 10-30-2024 End: 11-04-2024 Clinisync Result Encounter Generic External Data Provider [facility] External Department Unsolicited Start: 10-23-2024 End: 10-23-2024 ambulatory Jennie Nicholson MD Work Phone: [facility] Comment on above: [employer] Start Start: 10-17-2024 End: 10-17-2024 Clinisync Result Encounter Generic External Data Provider [facility] External Department Unsolicited Start: 10-17-2024 End: 10-17-2024 Clinisync Result Encounter Generic External Data Provider [facility] External Department Unsolicited Start: 10-14-2024 End: 10-15-2024 Clinisync Result Encounter Generic External Data Provider [facility] External Department Unsolicited Start: 10-14-2024 End: 10-15-2024 Clinisync Result Encounter Generic External Data Provider [facility] External Department Unsolicited Start: 10-12-2024 End: 10-16-2024 Clinisync Result Encounter Generic External Data Provider [facility] External Department Unsolicited Start: 10-12-2024 End: 10-16-2024 Clinisync Result Encounter Generic External Data Provider [facility] External Department Unsolicited Start: 10-08-2024 End: 10-09-2024 Clinisync Result Encounter Generic External Data Provider [facility] External Department Unsolicited Start: 10-08-2024 End: 10-09-2024 Clinisync Result Encounter Generic External Data Provider [facility] External Department Unsolicited Start: 10-07-2024 End: 10-30-2024 Evaluation and management of inpatient SANJAY ROBLEDO II Facility:[facility] Start: 10-07-2024 End: 10-07-2024 ambulatory Kathy A Shelby BOTELLONDANIEL Work Phone: [facility] Start: 10-07-2024 End: 10-07-2024 Clinisync Result Encounter Generic External Data Provider [facility] External Department Unsolicited Start: 10-07-2024 End: 10-07-2024 Clinisync Result Encounter Generic External Data Provider [facility] External Department Unsolicited Start: 10-07-2024 End: 10-07-2024 Subsequent hospital visit by physician [facility] ([facility]) Work Phone: [facility] Radiology CT Scan Start: 10-05-2024 End: 10-05-2024 Clinisync Result Encounter Generic External Data Provider [facility] External Department Unsolicited Start: 10-05-2024 End: 10-05-2024 Clinisync Result Encounter Generic External Data Provider [facility] External Department Unsolicited Start: 10-04-2024 End: 10-04-2024 Clinisync Result Encounter Generic External Data Provider [facility] External Department Unsolicited Start: 10-04-2024 End: 10-04-2024 Clinisync Result Encounter Generic External Data Provider [facility] External Department Unsolicited Start: 10-03-2024 End: 10-03-2024 Clinisync Result Encounter Generic External Data Provider [facility] External Department Unsolicited Start: 10-03-2024 End: 10-03-2024 Clinisync Result Encounter Generic External Data Provider [facility] External Department Unsolicited Start: 10-03-2024 End: 10-03-2024 Telephone encounter Liver Txp Coordinator Work Phone: [facility] Comment on above: Return Call Request Start: 10-02-2024 End: 10-08-2024 ambulatory Hal Weir MD Work Phone: [facility] Comment on above: Sutures Start: 10-02-2024 End: 10-02-2024 Clinisync Result Encounter Generic External Data Provider [facility] External Department Unsolicited Start: 10-02-2024 End: 10-02-2024 Clinisync Result Encounter Generic External Data Provider [facility] External Department Unsolicited Start: 10-01-2024 End: 10-21-2024 Chart abstracting Kathy Ryan APRN.WATCH REPAIRER APPRENTICE Work Phone: [facility] Comment on above: Liver Pathology Revi ew; HCC Loop Score Start: 10-01-2024 End: 10-01-2024 Clinisync Result Encounter Generic External Data Provider [facility] External Department Unsolicited Start: 10-01-2024 End: 10-01-2024 Clinisync Result Encounter Generic External Data Provider [facility] External Department Unsolicited Start: 09-30-2024 End: 09-30-2024 Clinisync Result Encounter Generic External Data Provider NOMS External Department Unsolicited Start: 09-30-2024 End: 09-30-2024 Clinisync Result Encounter Generic External Data Provider NOMS External Department Unsolicited Start: 09-29-2024 End: 10-07-2024 ambulatory DAVID CRUZ Facility:[facility] Start: 09-29-2024 End: 10-07-2024 Subsequent hospital visit by physician David Cruz DO Work Phone: [facility] Start: 09-29-2024 End: 09-30-2024 Clinisync Result Encounter Generic External Data Provider NOMS External Department Unsolicited Start: 09-29-2024 End: 09-30-2024 Clinisync Result Encounter Generic External Data Provider NOMS External Department Unsolicited Start: 09-24-2024 End: 09-27-2024 Clinisync Result Encounter Generic External Data Provider NOMS External Department Unsolicited Start: 09-24-2024 End: 09-27-2024 Clinisync Result Encounter Generic External Data Provider NOMS External Department Unsolicited Start: 09-18-2024 End: 09-18-2024 Telephone encounter Carina Ziegler RN [facility] Comment on above: dc ed scheduling Start: 09-13-2024 Patient encounter status Carina meehan RN [facility] Start: 09-10-2024 End: 09-10-2024 Chart abstracting Jadyn Vázquez RN Transplant Center Comment on above: Transplant Serologie s Start: 09-09-2024 End: 09-15-2024 Clinisync Result Encounter Generic External Data Provider NOMS External Department Unsolicited Start: 09-09-2024 End: 09-15-2024 Clinisync Result Encounter Generic External Data Provider NOMS External Department Unsolicited Start: 09-08-2024 End: 10-01-2024 Clinisync Result Encounter Generic External Data Provider NOMS External Department Unsolicited Start: 09-08-2024 End: 10-01-2024 Clinisync Result Encounter Generic External Data Provider NOMS External Department Unsolicited Start: 09-08-2024 End: 09-08-2024 Telephone encounter Virginia Blevins [facility] Trans[facility] Start: 09-06-2024 End: 09-11-2024 Clinisync Result Encounter Generic External Data Provider NOMS External Department Unsolicited Start: 09-06-2024 End: 09-11-2024 Clinisync Result Encounter Generic External Data Provider NOMS External Department Unsolicited Start: 09-04-2024 End: 11-04-2024 Follow-up encounter Giana Kingston MD Work Phone: Gastroenterology Start: 09-02-2024 End: 09-03-2024 Clinisync Result Encounter Generic External Data Provider NOMS External Department Unsolicited Start: 09-02-2024 End: 09-03-2024 Clinisync Result Encounter Generic External Data Provider NOMS External Department Unsolicited Start: 09-02-2024 End: 09-02-2024 Telephone encounter Yesica Bright RN [facility] Start: 09-01-2024 End: 09-30-2024 Clinisync Result Encounter Generic External Data Provider NOMS External Department Unsolicited Start: 09-01-2024 End: 09-30-2024 Clinisync Result Encounter Generic External Data Provider NOMS External Department Unsolicited Start: 08-31-2024 End: 09-03-2024 Clinisync Result Encounter Generic External Data Provider NOMS External Department Unsolicited Start: 08-31-2024 End: 09-03-2024 Clinisync Result Encounter Generic External Data Provider NOMS External Department Unsolicited Start: 08-31-2024 Patient encounter status Yesica soto RN [facility] Start: 08-29-2024 End: 08-29-2024 Telephone encounter Yesica Bright RN [facility] Comment on above: OLT selection mtg pt notification Start: 08-28-2024 End: 08-28-2024 Evaluation and management of inpatient Venus Aden DMD Work Phone: Dentistry Comment on above: Hepatic encephalopat hy (HCC) (Primary Dx); Decompensated cirrhosis (HCC); Pre-operative clearance Start: 08-28-2024 End: 08-28-2024 Preoperative state Venus Aden DMD Work Phone: [facility] Start: 08-27-2024 End: 10-01-2024 Clinisync Result Encounter Generic External Data Provider NOMS External Department Unsolicited Start: 08-27-2024 End: 10-01-2024 Clinisync Result Encounter Generic External Data Provider NOMS External Department Unsolicited Start: 08-27-2024 End: 08-27-2024 Orders Only Liver Txp Coordinator Work Phone: Transplant Center Comment on above: Laennec's cirrhosis (HCC) (Primary Dx) Informed Consent (91 ); Patient Education Start: 08-27-2024 End: 08-27-2024 Evaluation and management of inpatient Lis ALMEIDAW Work Phone: Transplant Center Start: 08-26-2024 End: 08-26-2024 Orders Only Sarah Black PA-C Work Phone: Gastroenterology Comment on above: Other ascites (Prima ry Dx) Start: 08-24-2024 End: 08-26-2024 ambulatory Dmitri Reyes MD Work Phone: Gastroenterology Comment on above: Bill is in [facility] Start: 08-23-2024 End: 08-28-2024 Clinisync Result Encounter Generic External Data Provider NOMS External Department Unsolicited Start: 08-23-2024 End: 08-28-2024 Clinisync Result Encounter Generic External Data Provider NOMS External Department Unsolicited Start: 08-23-2024 End: 09-29-2024 Evaluation and management of inpatient GUILLERMO JENKINS Facility:[facility] Start: 08-22-2024 End: 08-22-2024 Telephone encounter Dmitri Reyes MD Work Phone: Gastroenterology Comment on above: Patient Update Abnormal bone scan o f thoracic spine (Primary Dx) Start: 08-20-2024 End: 08-20-2024 ambulatory Rosalba Zhu RN Gastroenterology Start: 08-20-2024 End: 10-20-2024 Follow-up encounter Dmitri Reyes MD Work Phone: Transplant Center Start: 08-19-2024 End: 08-19-2024 Bamboo flowsheet Xuan Espino PA Work Phone: [facility] Start: 08-19-2024 End: 08-19-2024 Bamboo flowsheet Xuan Espino PA Work Phone: [facility] Start: 08-19-2024 End: 08-19-2024 Office outpatient visit 15 minutes Xuan Espino PA Work Phone: [facility] Comment on above: Other acute postproc edural pain (Primary Dx); Type 2 diabetes mellitus with hyperglycemia, without long-term current use of insulin (CMS/HCC) Start: 08-19-2024 End: 08-19-2024 ambulatory XUAN ESPINO Not Available Start: 08-14-2024 End: 08-15-2024 Orders Only Dmitri Reyes MD Work Phone: Gastroenterology Comment on above: Cirrhosis of liver w ithout ascites, unspecified hepatic cirrhosis type (HCC) (Primary Dx); Liver transplant candidate; Lesion of liver greater than 1 cm in diameter; Alcoholic cirrhosis of liver with ascites (HCC) Colonoscopy Prep the day before procedure Colonoscopy Start: 08-12-2024 End: 08-12-2024 Orders Only Dmitri Reyes MD Work Phone: Gastroenterology Comment on above: Encounter for screen ing colonoscopy (Primary Dx) Start: 08-09-2024 End: 08-13-2024 ambulatory Dmitri Reyes MD Work Phone: Gastroenterology Comment on above: EGD Start: 08-09-2024 End: 08-13-2024 E-mail encounter from caregiver Dmitri Reyes MD Work Phone: Gastroenterology Start: 08-06-2024 End: 08-06-2024 Clinisync Result Encounter Generic External Data Provider NOMS External Department Unsolicited Start: 08-06-2024 End: 08-06-2024 Clinisync Result Encounter Generic External Data Provider NOMS External Department Unsolicited Start: 08-06-2024 End: 08-06-2024 ambulatory SANJAY ROBLEDO II Facility:[facility] Start: 08-05-2024 End: 08-05-2024 Clinisync Result Encounter Generic External Data Provider NOMS External Department Unsolicited Start: 08-05-2024 End: 08-05-2024 Clinisync Result Encounter Generic External Data Provider NOMS External Department Unsolicited Start: 07-31-2024 End: 07-31-2024 Clinisync Result Encounter Generic External Data Provider NOMS External Department Unsolicited Start: 07-31-2024 End: 07-31-2024 Clinisync Result Encounter Generic External Data Provider NOMS External Department Unsolicited Start: 07-31-2024 End: 07-31-2024 Telephone encounter Dmitri Reyes MD Work Phone: Gastroenterology Comment on above: Results Start: 07-30-2024 End: 07-30-2024 Telephone encounter Derrick Harris MD Work Phone: Radiation Oncology Comment on above: [employer] - O ther Biopsy Request Start: 07-30-2024 End: 07-30-2024 Admission to same day surgery center Sanjay Robledo II Work Phone: [facility] [place] Work Phone: Start: 07-30-2024 End: 07-30-2024 ambulatory Sanjay Robledo II Work Phone: [facility] Work Phone: Start: 07-25-2024 End: 07-25-2024 Patient encounter procedure Derrick Harris MD Work Phone: Radiation Oncology Comment on above: Hepatocellular carci noma (HCC) (Primary Dx) Start: 07-25-2024 End: 07-25-2024 ambulatory SANJAY ROBLEDO II Facility:[facility] Start: 07-25-2024 End: 07-25-2024 Office outpatient visit 25 minutes Dmitri Reyes MD Work Phone: Gastroenterology Comment on above: Cirrhosis of liver w ithout ascites, unspecified hepatic cirrhosis type (HCC) (Primary Dx) Start: 07-15-2024 End: 07-15-2024 Telephone encounter Dmitri Reyes MD Work Phone: Gastroenterology Comment on above: Outside Lab Results Start: 07-13-2024 End: 07-13-2024 Clinisync Result Encounter Generic External Data Provider NOMS External Department Unsolicited Start: 07-13-2024 End: 07-13-2024 Clinisync Result Encounter Generic External Data Provider NOMS External Department Unsolicited Start: 07-12-2024 End: 07-12-2024 Orders Only Dmitri Reyes MD Work Phone: Gastroenterology Comment on above: Metastatic malignant neoplasm, unspecified site (HCC) (Primary Dx) Start: 07-11-2024 End: 07-18-2024 ambulatory [facility] Gastroenterology Comment on above: Weekly Lab draw Start: 07-11-2024 End: 07-18-2024 E-mail encounter from caregiver [facility] Provider Gastroenterology Start: 07-11-2024 End: 07-12-2024 Telephone encounter Yesica Bright RN [facility] Comment on above: OLT selection mtg pt notification Start: 07-08-2024 End: 07-11-2024 E-mail encounter from caregiver [facility] Provider Gastroenterology Start: 07-08-2024 End: 07-11-2024 Patient encounter procedure [facility] Provider Gastroenterology Comment on above: Tumor clinic appt [facility] Reyes Start: 07-08-2024 End: 07-08-2024 Telephone encounter Yesica Bright RN [facility] Comment on above: OLT evaluation Start: 07-07-2024 End: 07-07-2024 Orders Only Dmitri Reyes MD Work Phone: Transplant Center Comment on above: Metastatic hepatocel lular carcinoma to bone (HCC) (Primary Dx) Start: 07-05-2024 End: 07-05-2024 ambulatory SANJAY ROBLEDO II Facility:[facility] Start: 07-05-2024 End: 07-05-2024 Subsequent hospital visit by physician Mri 6 Radio Main Q (I-Stat/1.5t/3t) Work Phone: MRI Q Comment on above: Pathological fractur e, other site, initial encounter for fracture [M84.48XA] Start: 07-05-2024 End: 07-05-2024 ambulatory SANJAY ROBLEDO II Facility:[facility] Start: 07-05-2024 End: 07-05-2024 Subsequent hospital visit by physician Morales Gregg MD Work Phone: Gastroenterology Comment on above: Pleural effusion [J9 0] Start: 07-02-2024 End: 07-02-2024 Orders Only Dmitri Reyes MD Work Phone: Transplant Center Comment on above: Other ascites (Prima ry Dx) Start: 07-01-2024 End: 07-01-2024 Telephone encounter Yesica Bright RN [facility] Comment on above: Follow Up Start: 06-24-2024 End: 06-24-2024 Telephone encounter Dmitri Reyes MD Work Phone: Gastroenterology Comment on above: Outside Labs Results (chemistry) Start: 06-19-2024 End: 06-19-2024 Telephone encounter Elaian OLSON Admitting Comment on above: Appointment; (Thorac entesis) Liver transplant can didate (Primary Dx) Start: 06-19-2024 End: 06-19-2024 Admission to same day surgery center Sanjay Robledo II Work Phone: [facility] [place] Work Phone: Start: 06-19-2024 End: 06-19-2024 ambulatory Sanjay Robledo II Work Phone: [facility] Work Phone: Start: 06-14-2024 End: 06-14-2024 Clinisync Result Encounter Generic External Data Provider NOMS External Department Unsolicited Start: 06-14-2024 End: 06-14-2024 Clinisync Result Encounter Generic External Data Provider NOMS External Department Unsolicited Start: 06-14-2024 End: 06-14-2024 Telephone encounter Yesica Bright RN [facility] Center Comment on above: Follow Up Start: 06-11-2024 End: 06-11-2024 Orders Only Dmitri Reyes MD Work Phone: Transplant Center Comment on above: Other ascites (Prima ry Dx) Start: 06-10-2024 End: 06-12-2024 Orders Only Dmitri Reyes MD Work Phone: Gastroenterology Comment on above: Pathological fractur e, other site, initial encounter for fracture (Primary Dx) 2nd Hepatitis B shot Start: 06-08-2024 End: 06-08-2024 Clinisync Result Encounter Generic External Data Provider NOMS External Department Unsolicited Start: 06-08-2024 End: 06-08-2024 Clinisync Result Encounter Generic External Data Provider NOMS External Department Unsolicited Start: 06-08-2024 End: 06-08-2024 ambulatory SANJAY ROBLEDO II Facility:[facility] Start: 06-08-2024 End: 06-08-2024 Subsequent hospital visit by physician Mri 7 Radio Main Q (I-Stat/1.5t/3t) Work Phone: MRI Q Comment on above: Low back pain, unspe cified back pain laterality, unspecified chronicity, unspecified whether sciatica present [M54.50] Start: 06-07-2024 End: 06-07-2024 Clinisync Result Encounter Generic External Data Provider NOMS External Department Unsolicited Start: 06-07-2024 End: 06-07-2024 Clinisync Result Encounter Generic External Data Provider NOMS External Department Unsolicited Start: 06-06-2024 End: 06-06-2024 Telephone encounter Yesica Bright RN [facility] Center Comment on above: CARDIAC SUBCOMMITTEE MTG Start: 06-04-2024 End: 06-04-2024 Clinisync Result Encounter Generic External Data Provider NOMS External Department Unsolicited Start: 06-04-2024 End: 06-04-2024 Clinisync Result Encounter Generic External Data Provider NOMS External Department Unsolicited Start: 06-04-2024 End: 06-04-2024 ambulatory SANJAY ROBLEDO II Facility:[facility] Start: 06-04-2024 End: 06-04-2024 Subsequent hospital visit by physician Michelle [facility] Simin Work Phone: Radiology Comment on above: Liver transplant can didate [Z76.82] Start: 06-03-2024 End: 06-03-2024 Telephone encounter Yesica Bright RN [facility] Start: 05-31-2024 End: 05-31-2024 Clinisync Result Encounter Generic External Data Provider NOMS External Department Unsolicited Start: 05-31-2024 End: 05-31-2024 Clinisync Result Encounter Generic External Data Provider NOMS External Department Unsolicited Start: 05-31-2024 End: 05-31-2024 Subsequent hospital visit by physician Hepatology Procedures Q3 Gastroenterology Comment on above: Other ascites [R18.8 ] Start: 05-31-2024 End: 05-31-2024 ambulatory Bhavya Dasilva MD Work Phone: Pulmonary Medicine Comment on above: Spirometry Pre-Op Exam Start: 05-31-2024 End: 05-31-2024 Patient encounter procedure Pulm Fct Lab J-1 Pulmonary Medicine Start: 05-30-2024 ambulatory SANJAY ROBLEDO II Facil ity:[facility] Start: 05-30-2024 End: 05-30-2024 Subsequent hospital visit by physician Marlee Patrick MD Work Phone: Admitting Comment on above: Bronchiolar disease [J98.09] Start: 05-30-2024 End: 05-30-2024 Telephone encounter Yesica Bright RN [facility] Center Comment on above: Follow Up Education Of Patient /family Unilateral inguinal hernia without obstruction or gangrene, recurrence not specified (Primary Dx) Start: 05-29-2024 End: 05-30-2024 ambulatory Brisa Bull MD Work Phone: Pulmonary Medicine Comment on above: Tests Start: 05-24-2024 End: 05-24-2024 Orders Only Dmitri Reyes MD Work Phone: Gastroenterology Comment on above: Other ascites (Prima ry Dx) Start: 05-23-2024 End: 05-23-2024 Patient encounter procedure Pulm Fct Lab Main 8 Pulmonary Medicine Comment on above: Pleural effusion ass ociated with hepatic disorder; Shortness of breath; Lesion of liver greater than 1 cm in diameter; Alcoholic cirrhosis of liver with ascites (HCC); Liver transplant candidate; Metabolic dysfunction-associated steatotic liver disease (MASLD) Start: 05-23-2024 End: 05-23-2024 Subsequent hospital visit by physician Xr Chest Main A21 Radiology Comment on above: Dyspnea, unspecified type [R06.00] Start: 05-23-2024 End: 05-23-2024 ambulatory Pulm Fct Lab Main 8 Pulmonary Medicine Comment on above: Spirometry Start: 05-21-2024 End: 05-22-2024 ambulatory Jade Arora MD Work Phone: Cardiology Comment on above: Blood work Start: 05-20-2024 End: 05-21-2024 ambulatory Jade Arora MD Work Phone: Cardiology Comment on above: Blood work Start: 05-20-2024 End: 05-20-2024 Telephone encounter Yesica Bright RN [facility] Start: 05-18-2024 End: 05-18-2024 Orders Only Dmitri Reyes MD Work Phone: Gastroenterology Comment on above: Liver mass (Primary Dx); Low back pain, unspecified back pain laterality, unspecified chronicity, unspecified whether sciatica present Start: 05-17-2024 End: 05-17-2024 Telephone encounter Yesica Bright RN [facility] Center Comment on above: Follow Up Start: 05-16-2024 End: 05-16-2024 Bamboo flowsheet Sanjay Robledo MD Work Phone: [facility] Start: 05-16-2024 End: 05-16-2024 Bamudayo flowsheet Sanjay Robledo MD Work Phone: [facility] Start: 05-16-2024 End: 05-16-2024 ambulatory SANJAY ROBLEDO Not Available Start: 05-14-2024 End: 05-14-2024 Orders Only Dmitri Reyes MD Work Phone: Transplant Center Comment on above: Cirrhosis of liver w ithout ascites, unspecified hepatic cirrhosis type (HCC) (Primary Dx) Start: 05-10-2024 End: 05-15-2024 Telephone encounter Dmitri Reyes MD Work Phone: Gastroenterology Comment on above: Results, Lab Results Start: 05-09-2024 End: 05-09-2024 Clinisync Result Encounter Generic External Data Provider NOMS External Department Unsolicited Start: 05-09-2024 End: 05-09-2024 Clinisync Result Encounter Generic External Data Provider N[facility]S External Department Unsolicited Start: 05-07-2024 End: 05-07-2024 Telephone encounter Yesica Bright RN [facility] Center Comment on above: Follow Up Start: 05-06-2024 End: 05-06-2024 Telephone encounter Yesica Bright RN [facility] Start: 05-04-2024 End: 05-04-2024 Orders Only Dmitri Reyes MD Work Phone: Transplant Center Start: 05-02-2024 Encounter for other preprocedural examination BRISA SEALS [facility] Start: 05-02-2024 End: 05-02-2024 Patient encounter status Brisa Seals MD Work Phone: [facility] Start: 05-02-2024 End: 05-02-2024 ambulatory BRISA SEALS Facility:[facility] Start: 05-02-2024 End: 05-02-2024 Patient encounter procedure Jaed Arora MD Work Phone: Cardiology Comment on above: Pleural effusion ass ociated with hepatic disorder; Shortness of breath; Lesion of liver greater than 1 cm in diameter; Alcoholic cirrhosis of liver with ascites (HCC); Liver transplant candidate; Metabolic dysfunction-associated steatotic liver disease (MASLD) Need for vaccination (Primary Dx); Lesion of liver greater than 1 cm in diameter; Alcoholic cirrhosis of liver with ascites (HCC); Liver transplant candidate; Metabolic dysfunction-associated steatotic liver disease (MASLD); Pre-transplant evaluation for chronic liver disease Start: 05-01-2024 End: 05-01-2024 ambulatory [facility] Facility:[facility] Start: 05-01-2024 End: 05-01-2024 Patient encounter procedure [facility] Work Phone: Transplant Center Comment on above: Thrombocytopenia (HC C) (Primary Dx); Pleural effusion associated with hepatic disorder; Shortness of breath; Lesion of liver greater than 1 cm in diameter; Alcoholic cirrhosis of liver with ascites (HCC); Liver transplant candidate; Metabolic dysfunction-associated steatotic liver disease (MASLD) Other ascites (Prima ry Dx) Start: 05-01-2024 End: 05-01-2024 Subsequent hospital visit by physician Hepatology Procedures Q3 Gastroenterology Comment on above: Pleural effusion ass ociated with hepatic disorder [K76.9, J91.8] Start: 05-01-2024 End: 05-01-2024 ambulatory DMITRI REYES Facility:[facility] Start: 04-30-2024 End: 04-30-2024 Office outpatient new 60 minutes Hal Weir MD Work Phone: Transplant Center Comment on above: Alcoholic cirrhosis of liver with ascites (HCC) (Primary Dx); Liver transplant candidate; Type 2 diabetes mellitus without complication, without long-term current use of insulin (HCC); Encounter for education about transplantation; Pre-transplant evaluation for liver transplant; Portal hypertension (HCC); Hepatic encephalopathy (HCC); Umbilical hernia without obstruction or gangrene; Personal history of other malignant neoplasm of skin Start: 04-30-2024 End: 04-30-2024 Patient encounter status Hal Weir MD Work Phone: [facility] Start: 04-30-2024 End: 04-30-2024 E-mail encounter from caregiver Yesica Bright RN [facility] Start: 04-30-2024 End: 04-30-2024 Telephone encounter Elaina OLSON Admitting Comment on above: Appointment; (Thorac entesis) Patient Education Start: 04-30-2024 End: 04-30-2024 Patient encounter procedure Transplant Pharmacist Transplant Center Comment on above: Encounter for medica tion review and counseling Start: 04-30-2024 End: 04-30-2024 ambulatory Yesica Bright RN Transplant Center Comment on above: Pre liver Coordinato r Start: 04-29-2024 End: 04-29-2024 Subsequent hospital visit by physician Ct 2 Main Qb (I-Stat) Radiology Comment on above: Lesion of liver grea ter than 1 cm in diameter [K76.9] Start: 04-29-2024 End: 04-29-[address] I[address]isse Santos RD Work Phone: Nutrition Therapy Comment on above: Patient Education; A ssessment Start: 04-29-2024 End: 04-29-2024 Patient encounter procedure Pulm Fct Lab Main 8 Pulmonary Medicine Comment on above: Pleural effusion ass ociated with hepatic disorder; Shortness of breath; Lesion of liver greater than 1 cm in diameter; Encounter for screening for malignant neoplasm of prostate; Alcoholic cirrhosis of liver with ascites (HCC); Liver transplant candidate; Metabolic dysfunction-associated steatotic liver disease (MASLD) Start: 04-29-2024 End: 04-29-2024 ambulatory Pulm Fct Lab Main 8 Pulmonary Medicine Comment on above: Spirometry Start: 04-25-2024 End: 04-25-2024 ambulatory Liver Txp Coordinator Work Phone: Transplant Center Comment on above: Encounter for educat ion (Primary Dx) Start: 04-25-2024 End: 04-25-2024 Telemedicine consultation with patient Liver Txp Coordinator Work Phone: Transplant Center Start: 04-24-2024 End: 04-24-2024 Telephone encounter Liver Txp Coordinator Work Phone: Transplant Center Comment on above: Reminder Call; Liver Eval Start: 04-23-2024 End: 04-23-2024 Telephone encounter Virginia Hickman RN Transplant Center Comment on above: Referral - Liver Txp (Intake) Start: 04-22-2024 End: 04-22-2024 Telephone encounter Jillian Gonzalez Trans[facility] Comment on above: Follow Up Start: 03-28-2024 End: 03-28-2024 ambulatory Liver Txp Coordinator Work Phone: Transplant Center Comment on above: Liver Transplant Start: 03-28-2024 End: 03-28-2024 E-mail encounter from caregiver Liver Txp Coordinator Work Phone: Transplant Center Start: 03-28-2024 End: 03-28-2024 Telephone encounter Liver Txp Coordinator Work Phone: Transplant Center Comment on above: Referral - Liver Txp Start: 03-25-2024 End: 03-25-2024 Telephone encounter Liver Txp Coordinator Work Phone: Transplant Center Comment on above: Referral - Liver Txp Start: 03-08-2024 End: 03-08-2024 ambulatory [facility] Start: 03-08-2024 End: 03-08-2024 ambulatory [facility] Start: 02-20-2024 [facility]: 02-20-[facility] Evaluation and management of inpatient ASTON [facility] Start: 02-19-2024 End: 02-19-2024 ambulatory [facility] Start: 02-19-2024 End: 02-20-2024 Evaluation and management of inpatient LEE [facility] Start: 02-15-2024 End: 02-15-2024 ambulatory [facility] Start: 02-12-2024 End: 02-12-2024 Clinisync Result Encounter Generic External Data Provider [facility]S External Department Unsolicited Start: 02-12-2024 End: 02-12-2024 Clinisync Result Encounter Generic External Data Provider [facility] External Department Unsolicited Start: 01-18-2024 End: 01-18-2024 Bamboo flowseunice Walker DO Work Phone: [facility] Start: 01-18-2024 End: 01-18-2024 Bamboo flowseunice Walker DO Work Phone: [facility] Start: 01-18-2024 End: 01-18-2024 ambulatory IRA WALKER Not Available Start: 01-03-2024 End: 01-03-2024 Clinisync Result Encounter Generic External Data Provider [facility] External Department Unsolicited Start: 01-03-2024 End: 01-03-2024 Clinisync Result Encounter Generic External Data Provider [facility] External Department Unsolicited Start: 01-03-2024 End: 01-03-2024 ambulatory II Sanjay Robledo Work Phone: [facility] Work Phone: Start: 01-03-2024 End: 01-03-2024 Departed Referred II Sanjay Robledo Work Phone: [facility] Start: 12-27-2023 ambulatory [facility] Start: 12-27-2023 End: 12-27-2023 ambulatory [facility] Start: 12-20-2023 End: 12-20-2023 Clinisync Result Encounter Generic External Data Provider [facility] External Department Unsolicited Start: 12-20-2023 End: 12-20-2023 Clinisync Result Encounter Generic External Data Provider [facility] External Department Unsolicited Start: 12-13-2023 End: 12-13-2023 Clinisync Result Encounter Generic External Data Provider [facility] External Department Unsolicited Start: 12-13-2023 End: 12-13-2023 Clinisync Result Encounter Generic External Data Provider [facility] External Department Unsolicited Start: 12-13-2023 End: 12-13-2023 Transitional care manage srvc 7 day discharge Xuan Espino PA Work Phone: [facility] Comment on above: Cirrhosis of liver w ith ascites, unspecified hepatic cirrhosis type (CMS/HCC) (Primary Dx); Dizziness; Abdominal distension; QUESADA (dyspnea on exertion); Gastroesophageal reflux disease without esophagitis; Other ascites; Secondary esophageal varices without bleeding (CMS/HCC) Start: 12-13-2023 End: 12-13-2023 ambulatory XUAN ESPINO Not Available Start: 12-12-2023 End: 12-12-2023 ambulatory II Sanjay Robledo Work Phone: [facility] Work Phone: Start: 12-12-2023 End: 12-12-2023 Departed Referred II Sanjay Robledo Work Phone: [facility] Start: 12-08-2023 End: 12-09-2023 Clinisync Result Encounter Generic External Data Provider [facility] External Department Unsolicited Start: 12-08-2023 End: 12-09-2023 Clinisync Result Encounter Generic External Data Provider [facility] External Department Unsolicited Start: 12-08-2023 End: 12-08-2023 ambulatory II Sanjay Robledo Work Phone: [facility] Work Phone: Start: 12-08-2023 End: 12-08-2023 Departed Referred II Sanjay Robledo Work Phone: [facility] Start: 12-07-2023 Non-patient / Non-visit II Navdeep Robledo Work Phone: [facility] Work Phone: Start: 12-07-2023 End: 12-07-2023 ambulatory II Sanjay Robledo Work Phone: [facility] Work Phone: Start: 12-07-2023 End: 12-07-2023 Departed Referred II Sanjay Robledo Work Phone: [facility] Start: 11-27-2023 End: 11-27-2023 ambulatory [facility] Start: 11-15-2023 End: 11-15-2023 ambulatory SANJAY ROBLEDO Not Available Start: 11-14-2023 End: 11-14-2023 ambulatory [facility] Start: 11-08-2023 End: 11-08-2023 ambulatory JENN LAMAS Not Available Start: 10-13-2023 ambulatory [facility] Start: 10-13-2023 End: 10-13-2023 ambulatory [facility] Start: 10-09-2023 End: 10-09-2023 ambulatory SANJAY ROBLEDO Not Available Start: 10-03-2023 End: 10-03-2023 ambulatory II Sanjay Robledo Work Phone: [facility] Work Phone: Start: 10-03-2023 End: 10-03-2023 Departed Referred II Sanjay Robledo Work Phone: [facility] Start: 10-02-2023 End: 10-02-2023 ambulatory LYNDSEY BERMANRAFIA Not Available Start: 09-25-2023 End: 09-25-2023 ambulatory JASON [facility] Start: 09-15-2023 End: 09-15-2023 ambulatory WARD VELÁSQUEZDICT Not Available Start: 09-05-2023 End: 09-05-2023 ambulatory WARD BENEDICT Not Available Start: 08-30-2023 End: 08-30-2023 ambulatory WARD BENEDICT Not Available Start: 07-12-2023 End: 07-13-2023 ambulatory Brayan Alves Facility:[facility] Start: 07-12-2023 End: 07-12-2023 Patient encounter procedure Jourdan ARRIAZA [facility] Start: 07-05-2023 End: 07-05-2023 ambulatory II Sanjay Robledo Work Phone: [facility] Work Phone: Start: 07-05-2023 End: 07-05-2023 Patient encounter procedure II Sanjay Robledo Work Phone: [facility] G[facility] Work Phone: Start: 06-23-2023 ambulatory Brayan Rileyzkowitz Facil ity:[facility] Start: 06-13-2023 End: 06-13-2023 Admission to same day surgery center II Sanjay Robledo Work Phone: [facility] [place] Start: 06-02-2023 End: 06-02-2023 ambulatory II Sanjay Robledo Work Phone: [facility] Work Phone: Start: 06-02-2023 End: 06-02-2023 Patient encounter procedure II Sanjay Robledo Work Phone: [facility]-Pre-Surgical Testing Work Phone: Start: 05-31-2023 End: 05-31-2023 Office outpatient visit 25 minutes Brayan H Itzkowitz DO Work Phone: [facility] Comment on above: Fissure in ano (Prim chinmay Dx) Start: 05-23-2023 End: 05-23-2023 Admission to same day surgery center II Sanjay Robledo Work Phone: [facility]-Digestive Health Work Phone: Start: 05-18-2023 End: 05-18-2023 Office outpatient new 45 minutes Brayan H Itzkowitz DO Work Phone: [facility] Comment on above: Fissure in ano Start: 05-11-2023 End: 05-11-2023 ambulatory Rick Ortega Other [facility] Other Start: 05-11-2023 Office outpatient vi sit 15 minutes Rick Ortega [facility] Start: 04-28-2023 End: 04-28-2023 ambulatory Rick Ortega Other [facility] Other Start: 04-28-2023 Telephone encounter Rick Coates [facility] Start: 04-27-2023 End: 04-27-2023 ambulatory Rick Ortega Other [facility] Other Start: 04-27-2023 Telephone encounter Rick Coates [facility] Start: 04-26-2023 End: 04-26-2023 Patient encounter procedure II Sanjay Robledo Work Phone: [facility] [place] Work Phone: Start: 04-13-2023 End: 04-13-2023 ambulatory Rick Ortega Other [facility] Other Start: 04-13-2023 Telephone encounter Rick Coates [facility] Start: 04-12-2023 Office outpatient vi sit 25 minutes Rick Ortega [facility] Start: 04-12-2023 Telephone encounter Rick Coates [facility] Start: 04-12-2023 End: 04-12-2023 ambulatory II Sanjay Robledo Work Phone: [facility] Other Start: 04-12-2023 End: 04-12-2023 Patient encounter procedure II Sanjay Robledo Work Phone: [facility] Work Phone: Start: 04-12-2023 End: 04-12-2023 Patient encounter procedure II Sanjay Robledo Work Phone: [facility] Work Phone: Start: 04-03-2023 End: 04-03-2023 ambulatory Rick Ortega Other [facility] Other Start: 04-03-2023 Telephone encounter Rick Coates [facility] Start: 11-18-2022 End: 11-18-2022 ambulatory Rick Ortega Other [facility] Other Start: 11-18-2022 Telephone encounter Rick Coates [facility] Start: 11-15-2022 End: 11-15-2022 ambulatory II Sanjay Robledo Work Phone: [facility] Work Phone: Start: 11-15-2022 End: 11-15-2022 Patient encounter procedure II Sanjay Robledo Work Phone: [facility] [place] Work Phone: Start: 11-10-2022 End: 11-10-2022 ambulatory Rick Ortega Other [facility] [employer] Other Start: 11-10-2022 Office outpatient vi sit 15 minutes Rick Ortega [facility] Start: 11-03-2022 End: 11-03-2022 Patient encounter procedure II Sanjay Robledo Work Phone: [facility] Work Phone: Start: 10-26-2022 End: 10-26-2022 ambulatory II Sanjay Robledo Work Phone: [facility] Work Phone: Start: 10-26-2022 End: 10-26-2022 Departed Referred II Sanjay Robledo Work Phone: [facility] Work Phone: Start: 10-26-2022 End: 10-26-2022 Patient encounter procedure II Sanjay Robledo Work Phone: [facility] Work Phone: Start: 09-21-2022 End: 09-21-2022 Admission to same day surgery center II Sanjay Robledo Work Phone: [facility] Work Phone: Start: 09-21-2022 End: 09-21-2022 ambulatory II Sanjay Robledo Work Phone: [facility] Work Phone: Procedures Date Procedure Procedure Detail Performing Clinician Start: 11-15-2024 Blood count complete auto&auto difrntl wbc Camila Meyers JEWEL CUPPING MACHINE OPERATOR.WATCH REPAIRER APPRENTICE Work Phone: Start: 11-15-2024 [facility] COMP METAB 2000 PNL SERPL Generic Ex ternal Data Provider Start: 11-15-2024 [facility] MAGNESIUM [facility] Generic Externa l Data Provider Start: 11-15-2024 [facility] PHOSPHATE [facility] Generic Externa l Data Provider Start: 11-15-2024 PATH INTERP CBCDIF (LAB REFLEX ORDER-NO BILL) Camilajosé miguel Marshallover JEWEL CUPPING MACHINE OPERATOR.WATCH REPAIRER APPRENTICE Work Phone: Start: 11-15-2024 STAFF REVIEW Camila Meyers JEWEL CUPPING MACHINE OPERATOR.WATCH REPAIRER APPRENTICE Work Phone: Start: 11-14-2024 Blood count complete auto&auto difrntl wbc David Cruz DO Work Phone: Start: 11-14-2024 C-reactive protein David Cruz DO Work Phone: Start: 11-14-2024 [facility] PHOSPHATE [facility] Generic Externa l Data Provider Start: 11-13-2024 ERCP Generic External Data Provider Start: 11-13-2024 Ercp dx collection specimen brushing/washing Nick Cruz PA-C Work Phone: Start: 11-11-2024 Blood count complete auto&auto difrntl wbc David Cruz DO Work Phone: Start: 11-11-2024 C-reactive protein David Cruz DO Work Phone: Start: 11-11-2024 [facility] NT-PROBNP SERPL-[facility] Generic Externa l Data Provider Start: 11-11-2024 Iadna cytomegalovirus quantification David Cruz DO Work Phone: Start: 11-08-2024 Albumin serum plasma/whole blood Camilajosé miguel Meyers JEWEL CUPPING MACHINE OPERATOR.WATCH REPAIRER APPRENTICE Work Phone: Start: 11-08-2024 [facility] ALBUMIN [facility] Generic External Data Provider Start: 11-08-2024 [facility] BAS METAB 2000 PNL SERPL Generic Ext ernal Data Provider Start: 11-08-2024 [facility] MAGNESIUM SERPL-[facility] Generic Externa l Data Provider Start: 11-08-2024 [facility] PHOSPHATE SERPL-[facility] Generic Externa l Data Provider Start: 11-07-2024 Blood count complete auto&auto difrntl wbc David Cruz DO Work Phone: Start: 11-07-2024 C-reactive protein David Cruz DO Work Phone: Start: 11-07-2024 [facility] PHOSPHATE SERPL-[facility] Generic Externa l Data Provider Start: 11-04-2024 Blood count complete auto&auto difrntl wbc David Cruz DO Work Phone: Start: 11-04-2024 C-reactive protein David Cruz DO Work Phone: Start: 11-04-2024 [facility] NT-PROBNP SERPL-[facility] Generic Externa l Data Provider Start: 11-04-2024 Iadna cytomegalovirus quantification David Cruz DO Work Phone: Start: 11-02-2024 Blood count complete auto&auto difrntl wbc Camila Meyers JEWEL CUPPING MACHINE OPERATOR.WATCH REPAIRER APPRENTICE Work Phone: Start: 11-02-2024 [facility] MAGNESIUM SERPL-[facility] Generic Externa l Data Provider Start: 11-02-2024 [facility] RENAL FUNC 2000 PNL SERPL Generic Ex ternal Data Provider Start: 11-01-2024 Blood count complete auto&auto difrntl wbc Camila Meyers JEWEL CUPPING MACHINE OPERATOR.WATCH REPAIRER APPRENTICE Work Phone: Start: 11-01-2024 [facility] MAGNESIUM SERPL-[facility] Generic Externa l Data Provider Start: 11-01-2024 [facility] NT-PROBNP SERPL-[facility] Generic Externa l Data Provider Start: 11-01-2024 [facility] RENAL FUNC 2000 PNL SERPL Generic Ex ternal Data Provider Start: 10-31-2024 Blood count complete auto&auto difrntl wbc David Cruz DO Work Phone: Start: 10-31-2024 C-reactive protein David Cruz DO Work Phone: Start: 10-31-2024 [facility] PHOSPHATE SERPL-[facility] Generic Externa l Data Provider Start: 10-30-2024 [facility] BACTERIA SPEC ANAEROBE CULT Generic External Data Provider Start: 10-30-2024 Antibody screen SANJAY ROBLEDO II Comment on above: Order Comment: Specimen Type: BLOOD SPEC IMENOrdering Facility: [facility] Address: [address] [place] [address] Performed By: #### T SCR ####CC MAIN BLOOD BANKCLIA [id number] [address] Start: 10-23-2024 Antibody screen SANJAY ROBLEDO II Comment on above: Order Comment: Specimen Type: BLOOD SPEC IMENOrdering Facility: [facility] Address: [address] [place] [address] Performed By: #### T SCR ####CC MAIN BLOOD BANKCLIA [id number] [address] Start: 10-20-2024 Antibody screen SANJAY ROBLEDO II Comment on above: Order Comment: Specimen Type: BLOOD SPEC IMENOrdering Facility: [facility] Address: [address] [place] [address] Performed By: #### T SCR ####CC MAIN BLOOD BANKCLIA [id number] [address] Start: 10-17-2024 Echocardiography Generic External Data Provider Start: 10-14-2024 [facility] CYTOLOGY NON-BRAKE LINING FINISHER Generic External Data Provider Start: 10-12-2024 [facility] O+P SPEC MICRO Generic External Data Provider Start: 10-08-2024 [facility] RESP PATH 12B PNL SPEC JESSICA+PROBE Generic External Data Provider Start: 10-07-2024 CT ABD/PEL WO IVCON Generic External Data Provider Start: 10-07-2024 CT BRAIN WO IVCON Generic External Data Provider Start: 10-07-2024 Ct head/brain w/o contrast material David Cruz DO Work Phone: Start: 10-07-2024 Blood count complete auto&auto difrntl wbc David Cruz DO Work Phone: Start: 10-07-2024 C-reactive protein David Cruz DO Work Phone: Start: 10-07-2024 [facility] CBC W AUTO DIFF BLD Generic External Data Provider Start: 10-07-2024 Iadna cytomegalovirus quantification David Cruz DO Work Phone: Start: 10-05-2024 Blood count complete auto&auto difrntl wbc Suze Jenkins MD Work Phone: Start: 10-05-2024 [facility] CBC W AUTO DIFF BLD Generic External Data Provider Start: 10-04-2024 Blood count complete auto&auto difrntl wbc Camila Meyers JEWEL CUPPING MACHINE OPERATOR.WATCH REPAIRER APPRENTICE Work Phone: Start: 10-04-2024 [facility] CBC W AUTO DIFF BLD Generic External Data Provider Start: 10-03-2024 Blood count complete auto&auto difrntl wbc David Cruz DO Work Phone: Start: 10-03-2024 C-reactive protein David Cruz DO Work Phone: Start: 10-03-2024 [facility] CBC W AUTO DIFF BLD Generic External Data Provider Start: 10-02-2024 Blood count complete automated Jonas Trinidad MD Work Phone: Start: 10-02-2024 [facility] CBC PNL BLD AUTO Generic External Data Provider Start: 10-02-2024 Drug screen quantitative tacrolimus David Cruz DO Work Phone: Start: 10-01-2024 Blood count complete auto&auto difrntl wbc Suze Jenkins MD Work Phone: Start: 10-01-2024 C-reactive protein Suze Jenkins MD Work Phone: Start: 10-01-2024 [facility] CBC W AUTO DIFF BLD Generic External Data Provider Start: 09-30-2024 Blood count complete auto&auto difrntl wbc David Cruz DO Work Phone: Start: 09-30-2024 C-reactive protein David Cruz DO Work Phone: Start: 09-30-2024 [facility] CBC W AUTO DIFF BLD Generic External Data Provider Start: 09-30-2024 Iadna cytomegalovirus quantification David Cruz DO Work Phone: Start: 09-29-2024 End: 09-29-2024 Ecg routine ecg w/least 12 lds i&r only David Cruz DO Work Phone: Start: 09-29-2024 ECG 12-LEAD Generic External Data Provider Start: 09-29-2024 ECG01 Generic External Data Provider Start: 09-24-2024 [facility] BACTERIA WND CULT Generic External Data Provider Start: 09-10-2024 H/O: liver recipient S/P liver transplant Carina Ziegler RN Start: 09-09-2024 H/O: liver recipient Status post liver transplant Jadyn Vázquez RN Start: 09-09-2024 [facility] BACTERIA FLD CULT Generic External Data Provider Start: 09-08-2024 [facility] FLUABV+SARS-COV-2+RSV PNL RESP JESSICA+PROBE Generic External Data Provider Start: 09-08-2024 Ecg routine ecg w/least 12 lds w/i&r Generic External Data Provider Start: 09-06-2024 [facility] BACTERIA SPEC ANAEROBE CULT Generic External Data Provider Start: 09-02-2024 TISS PATH BX REPORT Generic External Data Provider Start: 09-01-2024 Ecg routine ecg w/least 12 lds w/i&r Generic External Data Provider Start: 08-31-2024 TISS PATH BX REPORT Generic External Data Provider Start: 08-31-2024 Colonoscopy Yesica Bright RN Start: 08-27-2024 Ecg routine ecg w/least 12 lds w/i&r Generic External Data Provider Start: 08-26-2024 US PARACENTESIS (POC) DDI USE ONLY Sarah MALDONADO-Jc Work Phone: Start: 08-23-2024 End: 08-23-2024 [facility] BACTERIA BLD CULT Generic External Data Provider Start: 08-06-2024 CT BIOPSY VERTEBRA OR FEMUR Generic Exte rnal Data Provider Start: 08-05-2024 [facility] CMP (CMP) (FOR REMOTE [facility] USE) Gener ic External Data Provider Start: 07-31-2024 [facility] CMP (CMP) (FOR REMOTE [facility] USE) Gener ic External Data Provider Start: 07-13-2024 [facility] CMP (CMP) (FOR REMOTE [facility] USE) Gener ic External Data Provider Start: 07-05-2024 Abdom paracentesis dx/ther w/imaging guidance Dmitri Reyes MD Work Phone: Start: 07-05-2024 BF MANUAL DIFF Elsy E Alex JEWEL CUPPING MACHINE OPERATOR.WATCH REPAIRER APPRENTICE Work Phone: Start: 07-05-2024 Cell count misc body fluids w/differential count Elsy E Alex JEWEL CUPPING MACHINE OPERATOR.WATCH REPAIRER APPRENTICE Work Phone: Start: 07-05-2024 US PARACENTESIS (POC) DDI USE ONLY Letit ia E Vici JEWEL CUPPING MACHINE OPERATOR.WATCH REPAIRER APPRENTICE Work Phone: Start: 06-19-2024 Ultrasonography guided puncture and aspiration of abdomen Sanjay Robledo JUDITH Work Phone: Start: 06-14-2024 ALL CBC WITH AUTO DIFF Generic External Data Provider Start: 06-08-2024 MRI CERVICAL SPINE WO/W IVCON Generic Ex ternal Data Provider Start: 06-08-2024 MRI LUMBAR SPINE WO/W IVCON Generic Exte rnal Data Provider Start: 06-08-2024 Mri spinal canal thoracic w/o & w/contr matrl Dmitri Reyes MD Work Phone: Start: 06-08-2024 MRI THORACIC SPINE WO/W IVCON Generic Ex ternal Data Provider Start: 06-07-2024 [facility] CMP (CMP) (FOR REMOTE [facility] USE) Gener ic External Data Provider Start: 06-04-2024 Us pelvic nonobstetric image dcmtn limited/f/u Dmitri Reyes MD Work Phone: Start: 06-04-2024 US PELVIS LTD Generic External Data Provider Start: 05-31-2024 Abdom paracentesis dx/ther w/imaging guidance Dmitri Reyes MD Work Phone: Start: 05-31-2024 BF MANUAL DIFF Kathy Johana JEWEL CUPPING MACHINE OPERATOR.WATCH REPAIRER APPRENTICE Work Phone: Start: 05-31-2024 [facility] BODY FLUID CELL COUNT Generic Nursing Surgical Services Director al Data Provider Start: 05-31-2024 Cell count misc body fluids w/differential count Kathy Sanchezjolynndianna JEWEL CUPPING MACHINE OPERATOR.WATCH REPAIRER APPRENTICE Work Phone: Start: 05-31-2024 US PARACENTESIS (POC) DDI USE ONLY Erna mg Johana JEWEL CUPPING MACHINE OPERATOR.WATCH REPAIRER APPRENTICE Work Phone: Start: 05-31-2024 Co diffusing capacity Brisa Bull MD Work Phone: Start: 05-30-2024 End: 05-30-2024 Thoracentesis needle/cath pleura w/imaging Marlee Patrick MD Work Phone: Start: 05-23-2024 Brncdilat rspse spmtry pre&post-brncdilat admn Brisa Bull MD Work Phone: Start: 05-23-2024 Radiologic exam chest 2 views Brisa Bull MD Work Phone: Start: 05-09-2024 ALL CBC WITH AUTO DIFF Generic External Data Provider Start: 05-01-2024 Abdom paracentesis dx/ther w/imaging guidance Lee Ann Art MD Work Phone: Start: 05-01-2024 Albumin serum plasma/whole blood Rosalinda O liver JEWEL CUPPING MACHINE OPERATOR.WATCH REPAIRER APPRENTICE Work Phone: Start: 05-01-2024 BF MANUAL DIFF Rosalinda Cy JEWEL CUPPING MACHINE OPERATOR.WATCH REPAIRER APPRENTICE Work Phone: Start: 05-01-2024 Cell count misc body fluids w/differential count Rosalinda Cy JEWEL CUPPING MACHINE OPERATOR.WATCH REPAIRER APPRENTICE Work Phone: Start: 05-01-2024 Cul bact xcpt urine blood/stool aerobic isol Rosalinda Cy JEWEL CUPPING MACHINE OPERATOR.WATCH REPAIRER APPRENTICE Work Phone: Start: 05-01-2024 US PARACENTESIS (POC) DDI USE ONLY Rosalinda Cy JEWEL CUPPING MACHINE OPERATOR.WATCH REPAIRER APPRENTICE Work Phone: Start: 04-29-2024 Ct abdomen w/contrast material Dmitri almanza MD Work Phone: Start: 04-29-2024 Spmtry w/vc expiratory edy w/wo mxml vol vntj Dmitri Reyes MD Work Phone: Start: 04-29-2024 Lipid 1996 panel - Serum or Plasma Pulm 8 Start: 02-20-2024 Lipid 1996 panel - Serum or Plasma Liver Coordinator Work Phone: Start: 02-12-2024 ALL CBC WITH AUTO DIFF Generic External Data Provider Start: 01-18-2024 Oph bmtry prtl coher intrfrmtry io lens pwr laura Ira Walker DO Work Phone: Start: 01-18-2024 End: 01-18-2024 Ophth medical xm&eval compre new pt 1/> vst Age-related nuclear cataract of both eyes Ira Walker DO Work Phone: Comment on above: Age-related nuclear cataract of both eye s (Primary Dx) Start: 01-03-2024 SRMCOH PROTHROMBIN TIME INR W/O COUM Generic External Data Provider Start: 12-20-2023 ALL CBC WITH AUTO DIFF Generic External Data Provider Start: 12-13-2023 [facility] CMP (CMP) (FOR REMOTE [facility] USE) Gener ic External Data Provider Start: 12-08-2023 BODY FLUID CULTURE, STERILE Generic Exte rnal Data Provider Start: 12-08-2023 GRAM STAIN RESULT Generic External Data Provider Start: 06-13-2023 Excision of lesion of anus II Sanjay thacker Work Phone: Start: 05-23-2023 Esophageal manometry II Sanjay Robledo Work Phone: Start: 04-26-2023 Radionuclide gastric emptying study II Sanjay Robledo Work Phone: Start: 11-15-2022 Ultrasonography of liver II Sanjay Robledo Work Phone: Start: 11-03-2022 Ultrasound elastography of liver II Lamont Robledo Work Phone: Start: 09-21-2022 Esophagogastroduodenoscopy II Sanjay thacker Work Phone: Start: 05-12-2022 Colonoscopy Brayan Alves DO Work Phone: Start: 08-08-2019 Colonoscopy Generic Provider Start: 08-12-2014 Colonoscopy Liver Coordinator Work Phone: Plan of Treatment Date Care Activity Detail Author Start: 08-31-2034 Screening for malignant neoplasm of colon [facility] Start: 05-12-2032 Screening for malignant neoplasm of colon [facility] Start: 03-22-2032 Urine microalbumin profile DTaP,Tdap,Td Vaccine (2 - Td or Tdap) [facility] Start: 09-02-2029 Screening for malignant neoplasm of colon Sigmoidoscopy [facility] Start: 08-31-2029 Screening for malignant neoplasm of colon [facility] Start: 08-07-2029 Screening for malignant neoplasm of colon [facility] Start: 04-29-2029 Lipid panel Lipid Screening [facility] Start: 02-19-2029 Lipid panel Lipid Screening [facility] Start: 2028 RSV Vaccine (1 - 1-dose 75+ series) RSV Vaccine (1 - 1-dose 75+ series) [facility] Start: 11-16-2027 Diabetes Screening Diabetes Screening [facility] Start: 11-15-2027 Diabetes Screening Diabetes Screening [facility] Start: 11-12-2027 Diabetes Screening Diabetes Screening [facility] Start: 11-08-2027 Diabetes Screening Diabetes Screening [facility] Start: 11-05-2027 Diabetes Screening Diabetes Screening [facility] Start: 11-01-2027 Diabetes Screening Diabetes Screening [facility] Start: 10-24-2027 Diabetes Screening Diabetes Screening [facility] Start: 10-22-2027 Diabetes Screening Diabetes Screening [facility] Start: 10-20-2027 Diabetes Screening Diabetes Screening [facility] Start: 10-10-2027 Diabetes Screening Diabetes Screening [facility] Start: 10-09-2027 Diabetes Screening Diabetes Screening [facility] Start: 10-08-2027 Diabetes Screening Diabetes Screening [facility] Start: 10-04-2027 Diabetes Screening Diabetes Screening [facility] Start: 09-19-2027 Diabetes Screening Diabetes Screening [facility] Start: 09-11-2027 Diabetes Screening Diabetes Screening [facility] Start: 09-09-2027 Diabetes Screening Diabetes Screening [facility] Start: 09-03-2027 Diabetes Screening Diabetes Screening [facility] Start: 08-29-2027 Diabetes Screening Diabetes Screening [facility] Start: 08-28-2027 Diabetes Screening Diabetes [facility] Start: 08-27-2027 Diabetes Screening Diabetes Screening [facility] Start: 05-31-2027 Diabetes Screening Diabetes Screening [facility] Start: 05-23-2027 Diabetes Screening Diabetes Screening [facility] Start: 04-29-2027 Diabetes Screening Diabetes Screening [facility] Start: 03-08-2027 Diabetes Screening Diabetes Screening [facility] Start: 02-19-2027 Diabetes Screening Diabetes Screening [facility] Start: 01-17-2026 Glaucoma screening Diabetes: Retinopathy Screening [facility] Start: 11-15-2025 Creatinine measurement Serum Creatinine [facility] Start: 11-14-2025 Complete blood count Hemoglobin/Hematocrit [facility] Start: 11-14-2025 Creatinine measurement Serum Creatinine [facility] Start: 11-11-2025 Complete blood count Hemoglobin/Hematocrit [facility] Start: 11-11-2025 Creatinine measurement Serum Creatinine [facility] Start: 11-07-2025 Complete blood count Hemoglobin/Hematocrit [facility] Start: 11-07-2025 Creatinine measurement Serum Creatinine [facility] Start: 11-04-2025 Creatinine measurement Serum Creatinine [facility] Start: 11-03-2025 Creatinine measurement Serum Creatinine [facility] Start: 10-31-2025 Creatinine measurement Serum Creatinine [facility] Start: 10-23-2025 Creatinine measurement Serum Creatinine [facility] Start: 10-21-2025 Creatinine measurement Serum Creatinine [facility] Start: 10-19-2025 Creatinine measurement Serum Creatinine [facility] Start: 10-09-2025 Complete blood count Hemoglobin/Hematocrit [facility] Start: 10-09-2025 Creatinine measurement Serum Creatinine [facility] Start: 10-08-2025 Complete blood count Hemoglobin/Hematocrit [facility] Start: 10-08-2025 Creatinine measurement Serum Creatinine [facility] Start: 10-07-2025 Creatinine measurement Serum Creatinine [facility] Start: 10-03-2025 Creatinine measurement Serum Creatinine [facility] Start: 09-18-2025 Complete blood count Hemoglobin/Hematocrit [facility] Start: 09-18-2025 Creatinine measurement Serum Creatinine [facility] Start: 09-10-2025 Complete blood count Hemoglobin/Hematocrit [facility] Start: 09-10-2025 Creatinine measurement Serum Creatinine [facility] Start: 09-08-2025 Complete blood count Hemoglobin/Hematocrit [facility] Start: 09-08-2025 Creatinine measurement Serum Creatinine [facility] Start: 09-02-2025 Creatinine measurement Serum Creatinine [facility] Start: 08-29-2025 Creatinine measurement Serum Creatinine [facility] Start: 08-28-2025 Creatinine measurement Serum Creatinine [facility] Start: 08-27-2025 Complete blood count Hemoglobin/Hematocrit [facility] Start: 08-27-2025 Creatinine measurement Serum Creatinine [facility] Start: 07-25-2025 BP Controlled (<130/80) BP Controlled (<130/80) [facility] Start: 05-23-2025 BP Controlled (<130/80) BP Controlled (<130/80) [facility] Start: 05-02-2025 BP Controlled (<130/80) BP Controlled (<130/80) [facility] Start: 05-01-2025 BP Controlled (<130/80) BP Controlled (<130/80) [facility] Start: 04-30-2025 BP Controlled (<130/80) BP Controlled (<130/80) [facility] Start: 04-29-2025 BP Controlled (<130/80) BP Controlled (<130/80) [facility] Start: 02-10-2025 End: 02-10-2025 Patient encounter procedure 02/10/2025 11:00 AM EDT Appointment Gastroenterology [address] [address] Jane Correia MD [address] [place] [address] Schedule in about 3 months to remove biliary stent Gastroenterology Comment on above: Schedule in about 3 months to remove shukri iary stent Start: 02-03-2025 End: 02-03-2025 ambulatory 02/03/2025 9:00 AM EDT [facility] Neurology [address] [place] [address] Devyn Roach MD [address] [place] [address] Vertigo [R42] Neurology Comment on above: Vertigo [R42] Start: 01-28-2025 Hepatitis A Vaccine (3 of 3 - Hep A Twinrix risk 3-dose series) Hepatitis A Vaccine (3 of 3 - Hep A Twinrix risk 3-dose series) [facility] Start: 01-08-2025 End: 01-08-2025 Patient encounter procedure 01/08/2025 8:00 AM EDT Office Visit Gastroenterology [address] [place] [address] [place] [address] [place] [address] hospital discharge follow up Gastroenterology Comment on above: hospital discharge follow up Start: 12-26-2024 Urine screening for protein Diabetes: Urine Protein Screening [facility] Start: 12-16-2024 Influenza vaccination Influenza Vaccine (#1) [facility] Start: 11-21-2024 End: 11-21-2024 Patient encounter procedure Transplant Center Comment on above: OK PER EILEEN Compression fracture of cervical spine, non-traumatic, with delayed healing, subsequent encounter [M48.52XG] Start: 11-20-2024 End: 12-12-2025 MR Cervical spine WO and W contrast IV MRI CERVICAL SPINE WO/W IVCON Radiology ADRIANNE Compression fracture of cervical spine, non-traumatic, with delayed healing, subsequent encounter Expected: 11/20/2024, Expires: 12/12/2025 [facility] Work Phone: Comment on above: Expected: 11/20/2024, Expires: Start: 11-20-2024 End: 12-12-2025 MR Lumbar spine WO and W contrast IV MRI LUMBAR SPINE WO/W IVCON Radiology Routine Compression fracture of cervical spine, non-traumatic, with delayed healing, subsequent encounter Expected: 11/20/2024, Expires: 12/12/2025 [facility] Comment on above: Expected: 11/20/2024, Expires: Start: 11-20-2024 End: 12-12-2025 MR Thoracic spine WO and W contrast IV MRI THORACIC SPINE WO/W IVCON Radiology ADRIANNE Compression fracture of cervical spine, non-traumatic, with delayed healing, subsequent encounter Expected: 11/20/2024, Expires: 12/12/2025 [facility] Comment on above: Expected: 11/20/2024, Expires: Start: 11-14-2024 End: 11-14-2024 ambulatory 11/14/2024 2:30 PM EDT [facility] Infectious Disease [address] [id number] Jennie Nicholson MD [address] [place] [address] VRE infected bile leak Infectious Disease Comment on above: VRE infected bile leak Start: 11-14-2024 End: 11-14-2024 Patient encounter procedure 11/14/2024 2:30 PM EDT Office Visit Infectious Disease [address] [place] [address] Jennie Nicholson MD [address] [place] [address] VRE infected bile leak Infectious Disease Comment on above: VRE infected bile leak Start: 11-13-2024 End: 11-13-2024 Patient encounter procedure Gastroenterology Comment on above: 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, 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] Start: 10-31-2024 End: 10-31-2024 Results Only Cardiology Comment on above: Pleural effusion associated with hepatic disorder [K76.9, J91.8] Start: 10-30-2024 Hepatitis A Vaccine (2 of 2 - Risk 2-dose series) Hepatitis A Vaccine (2 of 2 - Risk 2-dose series) [facility] Start: 10-12-2024 Urine screening for protein Diabetes: Urine Protein Screening [facility] Start: 09-15-2024 End: 09-21-2025 MR Cervical spine WO and W contrast IV MRI CERVICAL SPINE WO/W IVCON Radiology Routine Abnormal bone scan of thoracic spine Expected: 09/15/2024, Expires: 09/21/2025 [facility] Work Phone: Comment on above: Expected: 09/15/2024, Expires: Start: 09-15-2024 End: 09-21-2025 MR Lumbar spine WO and W contrast IV MRI LUMBAR SPINE WO/W IVCON Radiology Routine Abnormal bone scan of thoracic spine Expected: 09/15/2024, Expires: 09/21/2025 [facility] Comment on above: Expected: 09/15/2024, Expires: Start: 09-15-2024 End: 09-21-2025 MR Thoracic spine WO and W contrast IV MRI THORACIC SPINE WO/W IVCON Radiology Routine Abnormal bone scan of thoracic spine Expected: 09/15/2024, Expires: 09/21/2025 [facility] Comment on above: Expected: 09/15/2024, Expires: Start: 09-05-2024 End: 09-05-2024 ambulatory 09/05/2024 8:30 AM EDT [facility] Gastroenterology [address] [address] Dmitri Reyes MD [address] [place] [address] Post spine bx, closed txp eval as of now Gastroenterology Comment on above: Post spine bx, closed txp eval as of now Start: 09-05-2024 End: 09-05-2024 Follow-up encounter 09/05/2024 8:30 AM EDT [facility] Gastroenterology [address] [address] Dmitri Reyes MD [address] [facility] [place] [address] OLT txp eval /hospital follow up Gastroenterology Comment on above: OLT txp eval /hospital follow up Start: 08-29-2024 End: 08-29-2024 Patient encounter procedure 08/29/2024 11:00 AM EDT Office Visit Gastroenterology [address] [address] Dmitri Reyes MD [address] [place] [address] f/u post closed txp eval and new mri Gastroenterology Comment on above: f/u post closed txp eval and new mri Start: 08-27-2024 End: 08-27-2024 Patient encounter procedure 08/27/2024 12:30 PM EDT Appointment Gastroenterology [address] [place] [address] Dmitri Ryees MD [address] [place] [address] EGD/EUS & COLONOSCOPY Gastroenterology Comment on above: EGD/EUS & COLONOSCOPY Start: 08-19-2024 End: 08-19-2025 Microalbumin/Creatinine panel in random Urine Microalbumin / creatinine, urine ratio Lab Routine Type 2 diabetes mellitus with hyperglycemia, without long-term current use of insulin (CMS/HCC) Expected: 08/19/2024 (Approximate), Expires: 08/19/[address] [facility] Work Phone: Comment on above: Expected: 08/19/2024 (Approximate), Expi res: 08/19/2025 Start: 08-19-2024 End: 08-12-2025 Screening colonoscopy COLONOSCOPY SCREENING Endoscopy Routine Encounter for screening colonoscopy Expected: 08/19/2024, Expires: 08/12/2025 [facility] Work Phone: Comment on above: Expected: 08/19/2024, Expires: Start: 08-19-2024 End: 08-19-2024 Patient encounter procedure 08/19/2024 11:00 AM EDT Office Visit [facility] [address] [place] [id number] Xuan Espino PA [address] [place] [address] Arrived [facility] Comment on above: Arrived Start: 08-15-2024 End: 06-17-2025 MR Liver WO and W contrast IV MRI LIVER WO/W IVCON Radiology Routine Liver mass Expected: 08/15/2024, Expires: 06/17/2025 [facility] Work Phone: Comment on above: Expected: 08/15/2024, Expires: Start: 08-15-2024 End: 08-15-2024 Patient encounter procedure 08/15/2024 11:50 AM EDT Appointment MRI Q [address] [address] Liver mass [R16.0] MRI Q Comment on above: Liver mass [R16.0] Start: 08-14-2024 End: 08-07-2025 EGD - THERAPEUTIC, EUS, OR TUBE INTERVENTIONS EGD - THERAPEUTIC, EUS, OR TUBE INTERVENTIONS Endoscopy Routine Cirrhosis of liver without ascites, unspecified hepatic cirrhosis type (HCC) Expected: 08/14/2024, Expires: 08/07/2025 [facility] Comment on above: Expected: 08/14/2024, Expires: Start: 08-07-2024 Screening for malignant neoplasm of colon [facility] Start: 07-30-2024 [facility] Start: 07-30-2024 Ultrasonography guided puncture and aspiration of abdomen [facility] Start: 07-28-2024 Hemoglobin A1c measurement Diabetes: Hemoglobin A1C [facility] Start: 07-25-2024 End: 07-25-2024 Patient encounter procedure Gastroenterology Comment on above: f/u post closed txp eval and new mri Metastatic hepatocel lular carcinoma to bone Start: 07-05-2024 End: 07-05-2024 Patient encounter procedure 07/05/2024 6:30 PM EDT Appointment MRI Q [address] [address] Dx: Pathological fracture, other site, initial encounter for fracture [M84.48XA] MRI Q Comment on above: Dx: Pathological fracture, other site, i nitial encounter for fracture [M84.48XA] Start: 07-05-2024 Subsequent hospital visit by physician 07/05/2024 6:30 PM EDT Hospital Encounter MRI Q [address] [address] Pathological fracture, other site, initial encounter for fracture [M84.48XA] MRI Q Comment on above: Pathological fracture, other site, initi al encounter for fracture [M84.48XA] Start: 07-05-2024 End: 07-05-2024 Admission to same day surgery center 07/05/2024 3:30 PM EDT - 07/05/2024 4:30 PM EDT Surgery Admitting [address] [address] Morales Gregg MD [address] [place] [address] THORACENTESIS NEEDLE OR CATHETER ASPIRATION OF THE PLEURAL SPACE W IMAGING GUIDANCE Admitting Comment on above: THORACENTESIS NEEDLE OR CATHETER ASPIRAT ION OF THE PLEURAL SPACE W IMAGING GUIDANCE Start: 07-05-2024 Subsequent hospital visit by physician 07/05/2024 3:30 PM EDT Hospital Encounter Admitting [address] [address] Morales Gregg MD [address] [place] [address] Pleural effusion [J90] Admitting Comment on above: Pleural effusion [J90] Start: 07-05-2024 End: 07-05-2024 Thoracentesis needle/cath pleura w/imaging THORACENTESIS NEEDLE OR CATHETER ASPIRATION OF THE PLEURAL SPACE W IMAGING GUIDANCE Pleural effusion 07/05/2024 3:30 PM EDT [facility] Start: 07-05-2024 End: 07-05-2024 Patient encounter procedure Gastroenterology Comment on above: Dx: Other ascites [R18.8] Start: 07-04-2024 End: 07-04-2024 Patient encounter procedure 07/04/2024 9:00 AM EDT Appointment Gastroenterology [address] [address] Dx: Other ascites [R18.8] Gastroenterology Comment on above: Dx: Other ascites [R18.8] Start: 06-19-2024 [facility] Start: 06-19-2024 Ultrasonography guided puncture and aspiration of abdomen [facility] Start: 06-08-2024 End: 06-08-2024 Patient encounter procedure MRI Q Comment on above: Low back pain, unspecified back pain lat erality, unspecified chronicity, unspecified whether sciatica present [M54.50] Start: 06-08-2024 Subsequent hospital visit by physician 06/08/2024 1:00 PM EST Hospital Encounter MRI Q [address] [address] Low back pain, unspecified back pain laterality, unspecified chronicity, unspecified whether sciatica present [M54.50] MRI Q Comment on above: Low back pain, unspecified back pain lat erality, unspecified chronicity, unspecified whether sciatica present [M54.50] Start: 06-04-2024 End: 06-04-2024 Patient encounter procedure 06/04/2024 11:15 AM EST Appointment Radiology [address] [place] [address] US PELVIS LTD; EVAL FOR RT INGUINAL HERNIA Radiology Comment on above: US PELVIS LTD; EVAL FOR RT INGUINAL JEANNE [place] Start: 05-31-2024 End: 05-31-[address] 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 PHY DR. ARORA Start: 05-31-2024 End: 05-31-2024 Admission to same day surgery center 05/31/2024 12:45 PM EST - 05/31/2024 1:38 PM EST Surgery [facility]OS[facility] Bioinformatics Support Specialist [address] [place] [address] Bhavya Dasilva MD [address] [place] [address]ON[address] CATH [address] W IMAGE INJECT & INTERP W LT HEART CATH W INJECT LT VENTRGRAPHY [facility] Bioinformatics Support Specialist Comment on above: CORONARY ANGIO W CATH PLACE W IMAGE INJE CT & INTERP W LT HEART CATH W INJECT LT VENTRGRAPHY Start: 05-31-2024 End: 05-31-2024 Cath plmt l hrt & arts w/njx & angio img s&i CORONARY ANGIO W CATH PLACE W IMAGE INJECT & INTERP W LT HEART CATH W INJECT LT VENTRGRAPHY Pleural effusion 05/31/2024 12:45 PM EST [employer]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 Start: 05-31-2024 Subsequent hospital visit by physician 05/31/2024 12:45 PM EST Hospital Encounter [facility] Bioinformatics Support Specialist [address] [place] [address] Bhavya Dasilva MD [address] [place] [address] DIAGNOSTIC LHC ONLY (NO PLANS FOR PCI), Dx: Pleural effusion associated with hepatic disorder [K76.9, J91.8 (ICD-10-CM)]; Shortness of breath [R06.02 (ICD-10-CM)]; Lesion of liver greater than 1 cm in diameter [K76.9 (ICD-10-CM)]; Alcoholic cirrhosis of liver with ascites (HCC) [K70.31, (ICD-10-CM)]; Liver transplant candidate [Z76.82 (ICD-10-CM)]; Metabolic dysfunction-associated steatotic liver disease (MASLD) [K76.0 (ICD-10-CM)], REF. GLORIA ARORA [facility] Bioinformatics Support Specialist Comment on above: DIAGNOSTIC LHC ONLY (NO PLANS FOR PCI), Dx: Pleural effusion associated with hepatic disorder [K76.9, J91.8 (ICD-10-CM)]; Shortness of breath [R06.02 (ICD-10-CM)]; Lesion of liver greater than 1 cm in diameter [K76.9 (ICD-10-CM)]; Alcoholic cirrhosis of liver with ascites (HCC) [K70.31, (ICD-10-CM)]; Liver transplant candidate [Z76.82 (ICD-10-CM)]; Metabolic dysfunction-associated steatotic liver disease (MASLD) [K76.0 (ICD-10-CM)], REF. PHY DR. ARORA Start: 05-31-2024 End: 05-31-2024 ambulatory 05/31/2024 11:30 AM EST Procedure Cardiology [address] [place], [place] [id number] Bhavya Dasilva MD [address] [place] [address] DIAGNOSTIC LHC ONLY (NO PLANS FOR PCI) Cardiology Comment on above: DIAGNOSTIC LHC ONLY (NO PLANS FOR PCI) Start: 05-31-2024 End: 05-31-2024 Patient encounter procedure Gastroenterology Comment on above: Other ascites [R18.8]Please send for yadi l count and total protein. Administer 25% albumin, 6 grams/L of ascitic fluid removed. Pleural effusion ass ociated with hepatic disorder [K76.9, J91.8] RS// Pleural effusio n associated with hepatic disorder [K76.9, J91.8] ADMIT Unilateral inguinal hernia without obstruction or gangrene, recurrence not specified [K40.90] Start: 05-30-2024 End: 05-30-2024 Thoracentesis needle/cath pleura w/imaging [facility] Start: 05-30-2024 Hepatitis B Vaccine (2 of 2 - CpG risk 2-dose series) Hepatitis B Vaccine (2 of 2 - CpG risk 2-dose series) [facility] Start: 05-26-2024 Urine screening for protein Diabetes: Urine Protein Screening [facility] Start: 05-24-2024 Glaucoma screening Diabetes: Retinopathy Screening [facility] Start: 05-23-2024 End: 05-23-2024 Patient encounter procedure Radiology Comment on above: Pleural effusion associated with hepatic disorder [K76.9, J91.8] Start: 05-23-2024 End: 05-23-2024 ambulatory 05/23/2024 10:15 AM EST Results Only [place] [id number] [facility] [address] [place] [id number] Liver transplant candidate [Z76.82] [place] [id number] Draw Station Comment on above: Liver transplant candidate [Z76.82] Start: 05-21-2024 End: 08-20-2024 Basic metabolic 2000 panel - Serum or Plasma BASIC METABOLIC PANEL Lab Routine Primary hypertension Expected: 05/21/2024, Expires: 08/20/2024 [facility] Comment on above: Expected: 05/21/2024, Expires: Start: 05-21-2024 End: 08-20-2024 CBC panel - Blood by Automated count COMPLETE BLOOD COUNT Lab Routine Primary hypertension Expected: 05/21/2024, Expires: 08/20/2024 [facility] Work Phone: Comment on above: Expected: 05/21/2024, Expires: Start: 05-21-2024 End: 08-20-2024 PT panel - Platelet poor plasma by Coagulation assay PROTHROMBIN TIME Lab Routine Primary hypertension Expected: 05/21/2024, Expires: 08/20/2024 [facility] Comment on above: Expected: 05/21/2024, Expires: Start: 05-20-2024 End: 08-19-2024 [id number] [Mass/volume] in Serum or Plasma ALPHA FETOPROTEIN Lab STAT Liver transplant candidate Expected: 05/20/2024, Expires: 08/19/2024 [facility] Work Phone: Comment on above: Expected: 05/20/2024, Expires: Start: 05-16-2024 End: 05-16-2024 Patient encounter procedure [facility] Comment on above: Arrived Start: 05-14-2024 End: 08-13-2024 CBC panel - Blood by Automated count COMPLETE BLOOD COUNT Lab Routine Cirrhosis of liver without ascites, unspecified hepatic cirrhosis type (HCC) Expected: 05/14/2024, Expires: 08/13/2024 [facility] Work Phone: Comment on above: Expected: 05/14/2024, Expires: Start: 05-14-2024 End: 08-13-2024 Comprehensive metabolic 2000 panel - Serum or Plasma COMPREHENSIVE METABOLIC PANEL Lab Routine Cirrhosis of liver without ascites, unspecified hepatic cirrhosis type (HCC) Expected: 05/14/2024, Expires: 08/13/2024 [facility] Comment on above: Expected: 05/14/2024, Expires: Start: 05-06-2024 End: 08-05-2024 Comprehensive metabolic 2000 panel - Serum or Plasma COMPREHENSIVE METABOLIC PANEL Lab Routine Liver transplant candidate Expected: 05/06/2024, Expires: 08/05/2024 [facility] Work Phone: Comment on above: Expected: 05/06/2024, Expires: Start: 05-02-2024 End: 08-01-2024 Basic metabolic 2000 panel - Serum or Plasma BASIC METABOLIC PANEL Lab Routine Pleural effusion associated with hepatic disorder Shortness of breath Lesion of liver greater than 1 cm in diameter Alcoholic cirrhosis of liver with ascites (HCC) Liver transplant candidate Metabolic dysfunction-associated steatotic liver disease (MASLD) Expected: 05/02/2024, Expires: 08/01/2024 [facility] Comment on above: Expected: 05/02/2024, Expires: Start: 05-02-2024 End: 08-01-2024 CBC panel - Blood by Automated count COMPLETE BLOOD COUNT Lab Routine Pleural effusion associated with hepatic disorder Shortness of breath Lesion of liver greater than 1 cm in diameter Alcoholic cirrhosis of liver with ascites (HCC) Liver transplant candidate Metabolic dysfunction-associated steatotic liver disease (MASLD) Expected: 05/02/2024, Expires: 08/01/2024 [facility] Work Phone: Comment on above: Expected: 05/02/2024, Expires: Start: 05-02-2024 End: 08-01-2024 PT panel - Platelet poor plasma by Coagulation assay PROTHROMBIN TIME Lab Routine Pleural effusion associated with hepatic disorder Shortness of breath Lesion of liver greater than 1 cm in diameter Alcoholic cirrhosis of liver with ascites (HCC) Liver transplant candidate Metabolic dysfunction-associated steatotic liver disease (MASLD) Expected: 05/02/2024, Expires: 08/01/2024 [facility] Comment on above: Expected: 05/02/2024, Expires: Start: 05-02-2024 End: 05-02-2024 Patient encounter procedure Cardiology Comment on above: Diagnosis: Pleural effusion associated w ith hepatic disorder [K76.9, J91.8] PRE LIVER TRANSPLANT EVAL Start: 05-01-2024 End: 05-01-2024 Admission to same day surgery center 05/01/2024 12:30 PM EST - 05/01/2024 1:30 PM EST Surgery Admitting [address] [place] [address] Nilay Villatoro MD [address] [place] [address] THORACENTESIS NEEDLE OR CATHETER ASPIRATION OF THE PLEURAL SPACE W IMAGING GUIDANCE Admitting Comment on above: THORACENTESIS NEEDLE OR CATHETER ASPIRAT ION OF THE PLEURAL SPACE W IMAGING GUIDANCE Start: 05-01-2024 Subsequent hospital visit by physician 05/01/2024 12:30 PM EST Hospital Encounter Admitting [address] [place] [address] Nilay Villatoro MD [address] [place] [address] Pleural effusion [J90] Admitting Comment on above: Pleural effusion [J90] Start: 05-01-2024 End: 05-01-2024 Thoracentesis needle/cath pleura w/imaging [facility] Start: 05-01-2024 End: 05-01-2024 Patient encounter procedure Cardiology Comment on above: Lesion of liver greater than 1 cm in jeremie meter [K76.9] LIVER TRANSPLANT TAYLER LUATION Shortness of breath [R06.02] Start: 04-30-2024 End: 04-30-2024 Patient encounter procedure Transplant Center Comment on above: LIVER TRANSPLANT EVALUATION Start: 04-29-2024 End: 04-29-2024 Patient encounter procedure Transplant Center Comment on above: LIVER TRANSPLANT EVALUATION Pleural effusion ass ociated with hepatic disorder; Shortness of breath; Lesion of liver greater than 1 cm in diameter; Encounter for screening for malignant neoplasm of prostate; Alcoholic cirrhosis of liver with ascites (HCC); Liver transplant candidate; Metabolic dysfunction-associated steatotic liver disease (MASLD) Start: 04-29-2024 End: 07-29-2024 25-hydroxyvitamin D3 [Mass/volume] in Serum or Plasma VITAMIN D 25 HYDROXY Lab Routine Lesion of liver greater than 1 cm in diameter Alcoholic cirrhosis of liver with ascites (HCC) Liver transplant candidate Metabolic dysfunction-associated steatotic liver disease (MASLD) Expected: 04/29/2024, Expires: 07/29/2024 [facility] Comment on above: Expected: 04/29/2024, Expires: Start: 04-29-2024 End: 07-29-2024 ALPHA 1 ANTITRYPSIN PHENOTYPE ALPHA 1 ANTITRYPSIN PHENOTYPE Lab Routine Lesion of liver greater than 1 cm in diameter Alcoholic cirrhosis of liver with ascites (HCC) Liver transplant candidate Metabolic dysfunction-associated steatotic liver disease (MASLD) Expected: 04/29/2024, Expires: 07/29/2024 [facility] Comment on above: Expected: 04/29/2024, Expires: Start: 04-29-2024 End: 07-29-2024 Alpha tocopherol [Mass/volume] in Serum or Plasma VITAMIN E/TOCOPHEROL Lab Routine Lesion of liver greater than 1 cm in diameter Alcoholic cirrhosis of liver with ascites (HCC) Liver transplant candidate Metabolic dysfunction-associated steatotic liver disease (MASLD) Expected: 04/29/2024, Expires: 07/29/2024 [facility] Comment on above: Expected: 04/29/2024, Expires: Start: 04-29-2024 End: 07-29-2024 [id number]-[id number] [Mass/volume] in Serum or Plasma ALPHA FETOPROTEIN Lab Routine Lesion of liver greater than 1 cm in diameter Alcoholic cirrhosis of liver with ascites (HCC) Liver transplant candidate Metabolic dysfunction-associated steatotic liver disease (MASLD) Expected: 04/29/2024, Expires: 07/29/2024 [facility] Comment on above: Expected: 04/29/2024, Expires: Start: 04-29-2024 End: 07-29-2024 aPTT in Platelet poor plasma by Coagulation assay ACTIVATED PARTIAL THROMBOPLASTIN TIME Lab Routine Lesion of liver greater than 1 cm in diameter Alcoholic cirrhosis of liver with ascites (HCC) Liver transplant candidate Metabolic dysfunction-associated steatotic liver disease (MASLD) Expected: 04/29/2024, Expires: 07/29/2024 [facility] Comment on above: Expected: 04/29/2024, Expires: Start: 04-29-2024 End: 07-29-2024 Basic metabolic 2000 panel - Serum or Plasma BASIC METABOLIC PANEL Lab Routine Lesion of liver greater than 1 cm in diameter Alcoholic cirrhosis of liver with ascites (HCC) Liver transplant candidate Metabolic dysfunction-associated steatotic liver disease (MASLD) Expected: 04/29/2024, Expires: 07/29/2024 [facility] Comment on above: Expected: 04/29/2024, Expires: Start: 04-29-2024 End: 07-29-2024 BLOOD TB SCREEN BLOOD TB SCREEN Lab Routine Lesion of liver greater than 1 cm in diameter Alcoholic cirrhosis of liver with ascites (HCC) Liver transplant candidate Metabolic dysfunction-associated steatotic liver disease (MASLD) Expected: 04/29/2024, Expires: 07/29/2024 [facility] Comment on above: Expected: 04/29/2024, Expires: Start: 04-29-2024 End: 07-29-2024 C reactive protein [Mass/volume] in Serum or Plasma by High sensitivity method HIGH SENSITIVITY C-REACTIVE PROTEIN Lab Routine Lesion of liver greater than 1 cm in diameter Alcoholic cirrhosis of liver with ascites (HCC) Liver transplant candidate Metabolic dysfunction-associated steatotic liver disease (MASLD) Expected: 04/29/2024, Expires: 07/29/2024 [facility] Comment on above: Expected: 04/29/2024, Expires: Start: 04-29-2024 End: 07-29-2024 Cancer Ag 19-9 [Units/volume] in Serum or Plasma CA 19-9 Lab Routine Lesion of liver greater than 1 cm in diameter Alcoholic cirrhosis of liver with ascites (HCC) Liver transplant candidate Metabolic dysfunction-associated steatotic liver disease (MASLD) Expected: 04/29/2024, Expires: 07/29/2024 [facility] Comment on above: Expected: 04/29/2024, Expires: Start: 04-29-2024 End: 07-29-2024 CBC W Auto Differential panel - Blood COMPLETE BLOOD COUNT AND DIFFERENTIAL Lab Routine Lesion of liver greater than 1 cm in diameter Alcoholic cirrhosis of liver with ascites (HCC) Liver transplant candidate Metabolic dysfunction-associated steatotic liver disease (MASLD) Expected: 04/29/2024, Expires: 07/29/2024 [facility] Comment on above: Expected: 04/29/2024, Expires: Start: 04-29-2024 End: 07-29-2024 Chronic hepatitis differentiation between hepatitis B and C virus panel - Serum or Plasma HEP REMOTE PANEL BL Lab Routine Lesion of liver greater than 1 cm in diameter Alcoholic cirrhosis of liver with ascites (HCC) Liver transplant candidate Metabolic dysfunction-associated steatotic liver disease (MASLD) Expected: 04/29/2024, Expires: 07/29/2024 [facility] Comment on above: Expected: 04/29/2024, Expires: Start: 04-29-2024 End: 07-29-2024 CREATININE BLD CREATININE BLD Lab Routine Lesion of liver greater than 1 cm in diameter Alcoholic cirrhosis of liver with ascites (HCC) Liver transplant candidate Metabolic dysfunction-associated steatotic liver disease (MASLD) Expected: 04/29/2024, Expires: 07/29/2024 [facility] Comment on above: Expected: 04/29/2024, Expires: Start: 04-29-2024 End: 05-23-2025 CT Chest WO contrast CT CHEST WO IVCON Radiology Routine Pleural effusion associated with hepatic disorder Shortness of breath Lesion of liver greater than 1 cm in diameter Alcoholic cirrhosis of liver with ascites (HCC) Liver transplant candidate Metabolic dysfunction-associated steatotic liver disease (MASLD) Expected: 04/29/2024, Expires: 05/23/2025 [facility] Comment on above: Expected: 04/29/2024, Expires: Start: 04-29-2024 End: 05-23-2025 CT Liver W contrast IV CT LIVER W IVCON Radiology Routine Lesion of liver greater than 1 cm in diameter Alcoholic cirrhosis of liver with ascites (HCC) Liver transplant candidate Metabolic dysfunction-associated steatotic liver disease (MASLD) Expected: 04/29/2024, Expires: 05/23/2025 [facility] Comment on above: Expected: 04/29/2024, Expires: Start: 04-29-2024 End: 07-29-2024 Cytomegalovirus IgG Ab [Units/volume] in Serum or Plasma CMV IGG ANTIBODY BL Lab Routine Lesion of liver greater than 1 cm in diameter Alcoholic cirrhosis of liver with ascites (HCC) Liver transplant candidate Metabolic dysfunction-associated steatotic liver disease (MASLD) Expected: 04/29/2024, Expires: 07/29/2024 [facility] Comment on above: Expected: 04/29/2024, Expires: Start: 04-29-2024 End: 04-23-2025 ECG COMPLETE ECG COMPLETE ECG Routine Lesion of liver greater than 1 cm in diameter Alcoholic cirrhosis of liver with ascites (HCC) Liver transplant candidate Metabolic dysfunction-associated steatotic liver disease (MASLD) Expected: 04/29/2024, Expires: 04/23/2025 [facility] Comment on above: Expected: 04/29/2024, Expires: Start: 04-29-2024 End: 04-23-2025 Echocardiography ECHO Cardiology Routine Lesion of liver greater than 1 cm in diameter Alcoholic cirrhosis of liver with ascites (HCC) Liver transplant candidate Metabolic dysfunction-associated steatotic liver disease (MASLD) Expected: 04/29/2024, Expires: 04/23/2025 [facility] Comment on above: Expected: 04/29/2024, Expires: Start: 04-29-2024 End: 07-29-2024 Teofilo Pearson virus capsid IgG Ab [Units/volume] in Serum TEOFILO-PEARSON VCA IGG Lab Routine Lesion of liver greater than 1 cm in diameter Alcoholic cirrhosis of liver with ascites (HCC) Liver transplant candidate Metabolic dysfunction-associated steatotic liver disease (MASLD) Expected: 04/29/2024, Expires: 07/29/2024 [facility] Comment on above: Expected: 04/29/2024, Expires: Start: 04-29-2024 End: 07-29-2024 Ferritin [Mass/volume] in Serum or Plasma FERRITIN Lab Routine Lesion of liver greater than 1 cm in diameter Alcoholic cirrhosis of liver with ascites (HCC) Liver transplant candidate Metabolic dysfunction-associated steatotic liver disease (MASLD) Expected: 04/29/2024, Expires: 07/29/2024 [facility] Comment on above: Expected: 04/29/2024, Expires: Start: 04-29-2024 End: 07-29-2024 Hemoglobin A1c in Blood HEMOGLOBIN A1C Lab Routine Lesion of liver greater than 1 cm in diameter Type 2 diabetes mellitus without complication, without long-term current use of insulin (HCC) Alcoholic cirrhosis of liver with ascites (HCC) Liver transplant candidate Metabolic dysfunction-associated steatotic liver disease (MASLD) Expected: 04/29/2024, Expires: 07/29/2024 [facility] Comment on above: Expected: 04/29/2024, Expires: Start: 04-29-2024 End: 07-29-2024 Hepatic function 2000 panel - Serum or Plasma HEPATIC FUNCTION PNL Lab Routine Lesion of liver greater than 1 cm in diameter Alcoholic cirrhosis of liver with ascites (HCC) Liver transplant candidate Metabolic dysfunction-associated steatotic liver disease (MASLD) Expected: 04/29/2024, Expires: 07/29/2024 [facility] Comment on above: Expected: 04/29/2024, Expires: Start: 04-29-2024 End: 07-29-2024 HEPATITIS A ANTIBODY, IGG HEPATITIS A ANTIBODY, IGG Lab Routine Lesion of liver greater than 1 cm in diameter Alcoholic cirrhosis of liver with ascites (HCC) Liver transplant candidate Metabolic dysfunction-associated steatotic liver disease (MASLD) Expected: 04/29/2024, Expires: 07/29/2024 [facility] Comment on above: Expected: 04/29/2024, Expires: Start: 04-29-2024 End: 07-29-2024 HIV 1+2 Ab [Presence] in Serum or Plasma by Immunoassay HIV 1/2 COMBO WITH REFLEX TO DIFFERENTIATION Lab Routine Lesion of liver greater than 1 cm in diameter Alcoholic cirrhosis of liver with ascites (HCC) Liver transplant candidate Metabolic dysfunction-associated steatotic liver disease (MASLD) Expected: 04/29/2024, Expires: 07/29/2024 [facility] Comment on above: Expected: 04/29/2024, Expires: Start: 04-29-2024 End: 07-29-2024 Iron and Iron binding capacity panel - Serum or Plasma IRON AND TIBC Lab Routine Lesion of liver greater than 1 cm in diameter Alcoholic cirrhosis of liver with ascites (HCC) Liver transplant candidate Metabolic dysfunction-associated steatotic liver disease (MASLD) Expected: 04/29/2024, Expires: 07/29/2024 [facility] Comment on above: Expected: 04/29/2024, Expires: Start: 04-29-2024 End: 07-29-2024 Lipid 1996 panel - Serum or Plasma LIPID PANEL BASIC Lab Routine Lesion of liver greater than 1 cm in diameter Alcoholic cirrhosis of liver with ascites (HCC) Liver transplant candidate Metabolic dysfunction-associated steatotic liver disease (MASLD) Expected: 04/29/2024, Expires: 07/29/2024 [facility] Comment on above: Expected: 04/29/2024, Expires: Start: 04-29-2024 End: 07-29-2024 Lipoprotein a [Mass/volume] in Serum or Plasma LIPOPROTEIN (A) Lab Routine Lesion of liver greater than 1 cm in diameter Alcoholic cirrhosis of liver with ascites (HCC) Liver transplant candidate Metabolic dysfunction-associated steatotic liver disease (MASLD) Expected: 04/29/2024, Expires: 07/29/2024 [facility] Comment on above: Expected: 04/29/2024, Expires: Start: 04-29-2024 End: 04-23-2025 LIVER REC INIT W/U LIVER REC INIT W/U ALLOGEN Routine Lesion of liver greater than 1 cm in diameter Alcoholic cirrhosis of liver with ascites (HCC) Liver transplant candidate Metabolic dysfunction-associated steatotic liver disease (MASLD) Expected: 04/29/2024, Expires: 04/23/2025 [facility] Comment on above: Expected: 04/29/2024, Expires: Start: 04-29-2024 End: 07-29-2024 Natriuretic peptide.B prohormone N-Terminal [Mass/volume] in Serum or Plasma NT PRO BNP Lab Routine Lesion of liver greater than 1 cm in diameter Alcoholic cirrhosis of liver with ascites (HCC) Liver transplant candidate Metabolic dysfunction-associated steatotic liver disease (MASLD) Expected: 04/29/2024, Expires: 07/29/2024 [facility] Comment on above: Expected: 04/29/2024, Expires: Start: 04-29-2024 End: 07-29-2024 PHOSPHATIDYLETHANOL (PETH) PHOSPHATIDYLETHANOL (PETH) Lab Routine Lesion of liver greater than 1 cm in diameter Alcoholic cirrhosis of liver with ascites (HCC) Liver transplant candidate Metabolic dysfunction-associated steatotic liver disease (MASLD) Expected: 04/29/2024, Expires: 07/29/2024 [facility] Comment on above: Expected: 04/29/2024, Expires: Start: 04-29-2024 End: 07-29-2024 PSA/PROSTATE SPECIFIC ANTIGEN SCREENING PSA/PROSTATE SPECIFIC ANTIGEN SCREENING Lab Routine Lesion of liver greater than 1 cm in diameter Encounter for screening for malignant neoplasm of prostate Alcoholic cirrhosis of liver with ascites (HCC) Liver transplant candidate Metabolic dysfunction-associated steatotic liver disease (MASLD) Expected: 04/29/2024, Expires: 07/29/2024 [facility] Comment on above: Expected: 04/29/2024, Expires: Start: 04-29-2024 End: 07-29-2024 PT panel - Platelet poor plasma by Coagulation assay PROTHROMBIN TIME Lab Routine Lesion of liver greater than 1 cm in diameter Alcoholic cirrhosis of liver with ascites (HCC) Liver transplant candidate Metabolic dysfunction-associated steatotic liver disease (MASLD) Expected: 04/29/2024, Expires: 07/29/2024 [facility] Work Phone: Comment on above: Expected: 04/29/2024, Expires: Start: 04-29-2024 End: 07-29-2024 Retinol [Mass/volume] in Serum or Plasma VITAMIN A/RETINOL Lab Routine Lesion of liver greater than 1 cm in diameter Alcoholic cirrhosis of liver with ascites (HCC) Liver transplant candidate Metabolic dysfunction-associated steatotic liver disease (MASLD) Expected: 04/29/2024, Expires: 07/29/2024 [facility] Comment on above: Expected: 04/29/2024, Expires: Start: 04-29-2024 End: 07-29-2024 RUBEOLA (MEASLES)IGG RUBEOLA (MEASLES)IGG Lab Routine Lesion of liver greater than 1 cm in diameter Alcoholic cirrhosis of liver with ascites (HCC) Liver transplant candidate Metabolic dysfunction-associated steatotic liver disease (MASLD) Expected: 04/29/2024, Expires: 07/29/2024 [facility] Comment on above: Expected: 04/29/2024, Expires: Start: 04-29-2024 End: 05-23-2025 SPIROMETRY BASELINE ONLY [facility] Comment on above: Expected: 04/29/2024, Expires: Start: 04-29-2024 End: 07-29-2024 SYPHILIS TREPONEMAL W/REFLEX SYPHILIS TREPONEMAL W/REFLEX Lab Routine Lesion of liver greater than 1 cm in diameter Alcoholic cirrhosis of liver with ascites (HCC) Liver transplant candidate Metabolic dysfunction-associated steatotic liver disease (MASLD) Expected: 04/29/2024, Expires: 07/29/2024 [facility] Comment on above: Expected: 04/29/2024, Expires: Start: 04-29-2024 End: 07-29-2024 Thyrotropin [Units/volume] in Serum or Plasma THYROID STIMULATING HORMONE Lab Routine Lesion of liver greater than 1 cm in diameter Alcoholic cirrhosis of liver with ascites (HCC) Liver transplant candidate Metabolic dysfunction-associated steatotic liver disease (MASLD) Expected: 04/29/2024, Expires: 07/29/2024 [facility] Comment on above: Expected: 04/29/2024, Expires: Start: 04-29-2024 End: 07-29-2024 TOXICOLOGY PANEL BLD TOXICOLOGY PANEL BLD Lab Routine Lesion of liver greater than 1 cm in diameter Alcoholic cirrhosis of liver with ascites (HCC) Liver transplant candidate Metabolic dysfunction-associated steatotic liver disease (MASLD) Expected: 04/29/2024, Expires: 07/29/2024 [facility] Comment on above: Expected: 04/29/2024, Expires: Start: 04-29-2024 End: 07-29-2024 TOXICOLOGY SCREEN, ROUTINE URINE TOXICOLOGY SCREEN, ROUTINE URINE Lab Routine Lesion of liver greater than 1 cm in diameter Alcoholic cirrhosis of liver with ascites (HCC) Liver transplant candidate Metabolic dysfunction-associated steatotic liver disease (MASLD) Expected: 04/29/2024, Expires: 07/29/2024 [facility] Comment on above: Expected: 04/29/2024, Expires: Start: 04-29-2024 End: 07-29-2024 TRANSPLANT CONFIRM ABO/RH TRANSPLANT CONFIRM ABO/RH Blood Bank Routine Lesion of liver greater than 1 cm in diameter Alcoholic cirrhosis of liver with ascites (HCC) Liver transplant candidate Metabolic dysfunction-associated steatotic liver disease (MASLD) Expected: 04/29/2024, Expires: 07/29/2024 [facility] Comment on above: Expected: 04/29/2024, Expires: Start: 04-29-2024 End: 07-29-2024 TYPE + SCREEN TYPE + SCREEN Blood Bank Routine Lesion of liver greater than 1 cm in diameter Alcoholic cirrhosis of liver with ascites (HCC) Liver transplant candidate Metabolic dysfunction-associated steatotic liver disease (MASLD) Expected: 04/29/2024, Expires: 07/29/2024 [facility] Comment on above: Expected: 04/29/2024, Expires: Start: 04-29-2024 End: 07-29-2024 VARICELLA ZOSTER IGG VARICELLA ZOSTER IGG Lab Routine Lesion of liver greater than 1 cm in diameter Alcoholic cirrhosis of liver with ascites (HCC) Liver transplant candidate Metabolic dysfunction-associated steatotic liver disease (MASLD) Expected: 04/29/2024, Expires: 07/29/2024 [facility] Comment on above: Expected: 04/29/2024, Expires: Start: 04-29-2024 End: 04-29-2024 Nutrition therapy 04/29/2024 11:00 AM EST Education [facility] [address] [address] [address] [place], [place] [address] [place] [address] LIVER TRANSPLANT EVALUATION Nutrition Therapy Comment on above: LIVER TRANSPLANT EVALUATION Start: 04-29-2024 End: 04-29-2024 ambulatory Cardiology Comment on above: LIVER TRANSPLANT EVALUATION TRANSPLANT LIVER TAYLER L Start: 04-29-2024 End: 04-29-2024 Patient encounter procedure [facility] Comment on above: LIVER TRANSPLANT EVALUATION Start: 04-25-2024 End: 04-25-2024 ambulatory 04/25/2024 10:00 AM EST [facility] [address] [address] Coordinator, Liver Txp [address] [place] [address] LIVER TRANSPLANT EVALUATION Transplant Center Comment on above: LIVER TRANSPLANT EVALUATION Start: 04-17-2024 Advance Directive Discussion Advance Directive Discussion [facility] Start: 04-17-2024 Medicare Advantage Annual Wellness Visit Medicare Advantage Annual Wellness Visit [facility] Start: 02-22-2024 End: 02-22-2024 Patient encounter procedure 02/22/2024 9:00 AM EST Procedure Visit [facility] Ira Walker DO [address] [place] [address] [facility] Start: 02-15-2024 Hemoglobin A1c measurement Diabetes: Hemoglobin A1C [facility] Start: 02-08-2024 End: 02-08-2024 Patient encounter procedure 02/08/2024 8:15 AM EDT Procedure Visit [facility] Ira Walker DO [address] [place] [address] [facility] Start: 01-18-2024 End: 01-18-2024 Patient encounter procedure 01/18/2024 1:30 PM EDT Office Visit [facility] [address] [place] [id number] Ira Walker DO [address] [place] [address] Arrived [facility] Comment on above: Arrived Start: 12-17-2023 Covid-19 Vaccine ( season) Covid-19 Vaccine () [facility] Start: 12-17-2023 Covid-19 Vaccine ( season) Covid-19 Vaccine () [facility] Start: 12-17-2023 Influenza vaccination Influenza Vaccine (#1) [facility] Start: 12-13-2023 End: 12-12-2025 US Heart Transthoracic Transthoracic Echo (TTE) Complete Echocardiography Routine Cirrhosis of liver with ascites, unspecified hepatic cirrhosis type (CMS/HCC) Dizziness QUESADA (dyspnea on exertion) Other ascites Expected: 12/13/2023 (Approximate), Expires: 12/12/2025 [facility] Work Phone: Comment on above: Expected: 12/13/2023 (Approximate), Expi res: 12/12/2025 Start: 12-13-2023 End: 12-13-2023 Patient encounter procedure 12/13/2023 1:30 PM EDT Office Visit [facility] [address] [facility] [address] [place] [id number] Xuan Espino PA [address] [facility] [address] [place] [address] [facility] Start: 08-24-2023 Hemoglobin A1c measurement Diabetes: Hemoglobin A1C [facility] Start: 06-13-2023 [facility] Start: 06-13-2023 [facility] Start: 06-13-2023 End: 06-13-2023 Patient encounter procedure 06/13/2023 1:30 PM EST Procedure Visit [facility] Brayan Alves DO [address] [place] [address] [facility] Start: 06-09-2023 End: 06-09-2023 Patient encounter procedure 06/09/2023 10:30 AM EST Office Visit [facility] [address] [place] [id number] Brayan Alves, DO [address] [facility] [address] [place] [address] [facility] Start: 05-26-2023 Medicare Annual Wellness (AWV) Medicare Annual Wellness (AWV) [facility] Start: 05-23-2023 [facility] Start: 04-17-2023 Advance Directive Discussion Advance Directive Discussion [facility] Start: 02-23-2023 Hemoglobin A1c measurement Diabetes: Hemoglobin A1C [facility] Start: 11-03-2022 [facility] Start: 11-03-2022 Ultrasound elastography of liver DH Fibroscan (Not Applicable) [facility] Start: 10-26-2022 Ultrasound elastography of liver DH Fibroscan (Not Applicable) [facility] Start: 10-26-2022 [facility] Start: 09-21-2022 Hepatitis B core antibody measurement [facility] Start: 09-21-2022 End: 09-21-2022 [facility] Start: 06-25-2022 Shingrix Vaccine (2 of 2) Shingrix Vaccine (2 of 2) [facility] Start: 06-25-2022 Shingrix Vaccine (3 of 3) Shingrix Vaccine (3 of 3) [facility] Start: 07-22-2020 Covid-19 Vaccine (3 - Moderna risk series) Covid-19 Vaccine (3 - Moderna risk series) [facility] Start: 08-13-2019 Screening for malignant neoplasm of colon [facility] Start: 2018 Pneumococcal Vaccine: 65+ (1 of 1 - PCV) Pneumococcal Vaccine: 65+ (1 of 1 - PCV) [facility] Start: 2018 Pneumococcal Vaccine: 65+ Years (1 of 1 - PCV) Pneumococcal Vaccine: 65+ Years (1 of 1 - PCV) [facility] Start: 2013 Hepatitis B Vaccine (1 of 3 - Risk 3-dose series) Hepatitis B Vaccine (1 of 3 - Risk 3-dose series) [facility] Start: 2013 RSV Vaccine (1 - Risk 60-74 years 1-dose series) RSV Vaccine (1 - Risk 60-74 years 1-dose series) [facility] Start: 08-03-2003 Pneumococcal Vaccine: 50+ (1 of 1 - PCV) Pneumococcal Vaccine: 50+ (1 of 1 - PCV) [facility] Start: 1998 Screening for malignant neoplasm of colon [facility] Start: 1972 Hepatitis A Vaccine (1 of 2 - Risk 2-dose series) Hepatitis A Vaccine (1 of 2 - Risk 2-dose series) [facility] Start: 1972 Urine screening for protein Diabetes: Urine Protein Screening [facility] Start: 08-03-1971 Annual PCP Team Chronic Disease Visit Annual PCP Team Chronic Disease Visit [facility] Start: 08-03-1971 Anxiety Screening Anxiety Screening [facility] Start: 08-03-1971 BP Controlled (<130/80) BP Controlled (<130/80) [facility] Start: 08-03-1971 Depression Screening Depression Screening [facility] Start: 08-03-1959 Pneumococcal Vaccine: 65+ Years (1 - PCV) Pneumococcal Vaccine: 65+ Years (1 - PCV) [facility] Start: 08-03-1959 Pneumococcal Vaccine: 65+ Years (1 of 2 - PCV) Pneumococcal Vaccine: 65+ Years (1 of 2 - PCV) [facility] Start: 1953 Abdominal aortic aneurysm screening Abdominal Aortic Aneurysm Screening [facility] Start: 1953 Medicare Annual Wellness (AWV) Medicare Annual Wellness (AWV) [facility] Start: 1953 Screening for malignant neoplasm of colon [facility] Actin smooth muscle IgG Ab [Units/volume] in Serum [facility] Alpha 1 antitrypsin [Mass/volume] in Serum or Plasma [facility] Alpha 1 antitrypsin phenotyping [Identifier] in Serum or Plasma by Immunofixation [facility] End: 05-14-2025 [id number] [Mass/volume] in Serum or Plasma ALPHA FETOPROTEIN Lab Routine Cirrhosis of liver without ascites, unspecified hepatic cirrhosis type (HCC) Once per month for 12 Occurrences starting 05/14/2024 until 05/14/2025 [facility] Comment on above: Once per month for 12 Occurrences starti ng 05/14/2024 until 05/14/2025 Bacteria identified in Body fluid by Culture BACTERIAL CULTURE AND GRAM STAIN, STERILE BODY FLUID Microbiology Routine Shortness of breath Liver transplant candidate 05/01/2024 10:43 AM EST [facility] Bacteria identified in Unspecified specimen by Anaerobe culture [facility] Work Phone: Comment on above: Release Upon Ordering for 1 Occurrences starting 05/01/2024 BODY FLUID CULTURE, STERILE BODY FLUID CULTURE, STERILE Lab Routine 12/08/2023 7:30 AM EDT [facility] CBC W Auto Different ial panel - Blood CBC and differential Lab Routine Other acute postprocedural pain Ordered: 08/19/2024 [facility] Comment on above: Ordered: 08/19/2024 Cefuroxime free [Mass/volume] in Serum or Plasma [facility] Ceruloplasmin [Mass/volume] in Serum or Plasma [facility] End: 06-03-2025 Comprehensive metabolic 2000 panel - Serum or Plasma COMPREHENSIVE METABOLIC PANEL Lab Routine Liver transplant candidate Once per week for 5 Occurrences starting 06/03/2024 until 06/03/2025 [facility] Work Phone: Comment on above: Once per week for 5 Occurrences starting 06/03/2024 until 06/03/2025 End: 07-02-2025 Comprehensive metabolic 2000 panel - Serum or Plasma COMPREHENSIVE METABOLIC PANEL Lab Routine Other ascites Once per week for 12 Occurrences starting 07/02/2024 until 07/02/2025 [facility] Work Phone: Comment on above: Once per week for 12 Occurrences startin g 07/02/2024 until 07/02/2025 End: 07-25-2025 Comprehensive metabolic 2000 panel - Serum or Plasma COMPREHENSIVE METABOLIC PANEL Lab Routine Cirrhosis of liver without ascites, unspecified hepatic cirrhosis type (HCC) Once per week for 12 Occurrences starting 07/25/2024 until 07/25/2025 [facility] Work Phone: Comment on above: Once per week for 12 Occurrences startin g 07/25/2024 until 07/25/2025 End: 04-29-2024 CT Chest W contrast IV [facility] Work Phone: Comment on above: ONCE for 1 Occurrences starting 04/29/19 until 04/29/2024 CYTOLOGY NON-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 LINING 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 Tab rodriguez Comment on above: Release Upon Ordering for 1 Occurrences starting 05/01/2024, 1 completed End: 05-02-2025 ECG COMPLETE ECG COMPLETE ECG Routine Pleural effusion associated with hepatic disorder Shortness of breath Lesion of liver greater than 1 cm in diameter Alcoholic cirrhosis of liver with ascites (HCC) Liver transplant candidate Metabolic dysfunction-associated steatotic liver disease (MASLD) 1 Occurrences starting 05/02/2024 until 05/02/2025 [facility] Comment on above: 1 Occurrences starting 05/02/2024 until 05/02/2025 ECG COMPLETE ECG COMPLETE ECG 09/29/2024 5:07 PM EDT [facility] End: 11-13-2025 ERCP ERCP Endoscopy Routine Bile duct stricture (HCC) 1 Occurrences starting 11/13/2024 until 11/13/2025 [facility] Work Phone: Comment on above: 1 Occurrences starting 11/13/2024 until 11/13/2025 End: 04-29-2025 Guidance for paracentesis and insertion of tube of Peritoneum ABDOM PARACENTESIS DX/THER W IMAGING GUIDANCE Endoscopy Routine Shortness of breath Liver transplant candidate 1 Occurrences starting 04/29/2024 until 04/29/2025 [facility] Comment on above: 1 Occurrences starting 04/29/2024 until 04/29/2025 End: 05-24-2025 Guidance for paracentesis and insertion of tube of Peritoneum ABDOM PARACENTESIS DX/THER W IMAGING GUIDANCE Endoscopy Routine Other ascites 1 Occurrences starting 05/24/2024 until 05/24/2025 [facility] Work Phone: Comment on above: 1 Occurrences starting 05/24/2024 until 05/24/2025 End: 06-11-2025 Guidance for paracentesis and insertion of tube of Peritoneum ABDOM PARACENTESIS DX/THER W IMAGING GUIDANCE Endoscopy Routine Other ascites Every other week for 12 Occurrences starting 06/11/2024 until 06/11/2025 [facility] Work Phone: Comment on above: Every other week for 12 Occurrences star ting 06/11/2024 until 06/11/2025 Guidance for percuta neous biopsy of Bone [facility] Work Phone: Comment on above: Ordered: 07/25/2024 Guidance for thoracentesis of Chest IMAGING GUIDED THORACENTESIS Radiology Routine Pleural effusion associated with hepatic disorder Ordered: 04/29/2024 [facility] Work Phone: Comment on above: Ordered: 04/29/2024 Hepatitis B virus celeste rface Ab [Presence] in Serum [facility] Hepatitis B virus celeste rface Ag [Presence] in Serum or Plasma by Immunoassay [facility] Hepatitis C virus Ig G Ab [Presence] in Serum or Plasma by Immunoassay [facility] End: 06-22-2025 LUNG DIFFUSION CAPACITY (DLCO) LUNG DIFFUSION CAPACITY (DLCO) PFT Routine Pleural effusion associated with hepatic disorder 1 Occurrences starting 05/23/2024 until 06/22/2025 [facility] Comment on above: 1 Occurrences starting 05/23/2024 until 06/22/2025 LUNG DIFFUSION CAPAC ITY (DLCO) LUNG DIFFUSION CAPACITY (DLCO) PFT Routine Pleural effusion associated with hepatic disorder 05/31/2024 7:57 AM [facility] Work Phone: MANUAL DIFFERENTIAL, BODY FLUID MANUAL DIFFERENTIAL, BODY FLUID Lab Routine Shortness of breath Liver transplant candidate 05/01/2024 10:43 AM [facility] MANUAL DIFFERENTIAL, BODY FLUID MANUAL DIFFERENTIAL, BODY FLUID Lab Routine Other ascites 05/31/2024 9:30 AM [facility] Work Phone: Mitochondria M2 IgG Ab [Units/volume] in Serum [facility] End: 06-17-2025 MR Cervical spine WO and W contrast IV MRI CERVICAL SPINE WO/W IVCON Radiology Routine Low back pain, unspecified back pain laterality, unspecified chronicity, unspecified whether sciatica present 1 Occurrences starting 05/18/2024 until 06/17/2025 [facility] Comment on above: 1 Occurrences starting 05/18/2024 until 06/17/2025 End: 06-17-2025 MR Lumbar spine WO and W contrast IV MRI LUMBAR SPINE WO/W IVCON Radiology Routine Low back pain, unspecified back pain laterality, unspecified chronicity, unspecified whether sciatica present 1 Occurrences starting 05/18/2024 until 06/17/2025 [facility] Comment on above: 1 Occurrences starting 05/18/2024 until 06/17/2025 End: 06-17-2025 MR Thoracic spine WO and W contrast IV MRI THORACIC SPINE WO/W IVCON Radiology Routine Low back pain, unspecified back pain laterality, unspecified chronicity, unspecified whether sciatica present 1 Occurrences starting 05/18/2024 until 06/17/2025 [facility] Comment on above: 1 Occurrences starting 05/18/2024 until 06/17/2025 End: 07-10-2025 MR Thoracic spine WO contrast MRI THORACIC SPINE WO IVCON Radiology Routine Pathological fracture, other site, initial encounter for fracture 1 Occurrences starting 06/10/2024 until 07/10/2025 [facility] Work Phone: Comment on above: 1 Occurrences starting 06/10/2024 until 07/10/2025 MR Thoracic spine WO contrast MRI THORACIC SPINE WO IVCON Radiology Routine Pathological fracture, other site, initial encounter for fracture 07/05/2024 6:46 PM EDT [facility] Work Phone: Patient Education [facility] Work Phone: Patient referral [facility] Work Phone: End: 05-14-2025 PT panel - Platelet poor plasma by Coagulation assay PROTHROMBIN TIME Lab Routine Cirrhosis of liver without ascites, unspecified hepatic cirrhosis type (HCC) Once per month for 12 Occurrences starting 05/14/2024 until 05/14/2025 [facility] Comment on above: Once per month for 12 Occurrences starti ng 05/14/2024 until 05/14/2025 SPIROMETRY WITH DILA TOR IF OBSTRUCTED SPIROMETRY WITH DILATOR IF OBSTRUCTED PFT Routine Dyspnea, unspecified type 05/23/2024 10:31 AM EST [facility] Work Phone: End: 06-22-2025 SPIROMETRY WITH DILATOR IF OBSTRUCTED SPIROMETRY WITH DILATOR IF OBSTRUCTED PFT Routine Pleural effusion associated with hepatic disorder 1 Occurrences starting 05/23/2024 until 06/22/2025 [facility] Work Phone: Comment on above: 1 Occurrences starting 05/23/2024 until 06/22/2025 SPIROMETRY WITH DILA TOR IF OBSTRUCTED SPIROMETRY WITH DILATOR IF OBSTRUCTED PFT Routine Pleural effusion associated with hepatic disorder 05/31/2024 7:57 AM EST [facility] Work Phone: End: 06-29-2025 US Pelvis limited US PELVIS LTD Radiology Routine Unilateral inguinal hernia without obstruction or gangrene, recurrence not specified 1 Occurrences starting 05/30/2024 until 06/29/2025 [facility] Work Phone: Comment on above: 1 Occurrences starting 05/30/2024 until 06/29/2025 End: 05-30-2024 US THORACENTESIS (POC) H23 USE ONLY US THORACENTESIS (POC) H23 USE ONLY Imaging Procedures Routine ONCE for 1 Occurrences starting 05/30/2024 until 05/30/2024 [facility] Work Phone: Comment on above: ONCE for 1 Occurrences starting 05/30/19 until 05/30/2024 Immunizations Immunization Date Immunization Notes Care Provider [facility] 08-28-2024 hepatitis A vaccine, adult dosage Venus Aden DMD Work Phone: [facility] 08-28-2024 Hepatitis B vaccine (recombinant), CpG adjuvanted Venus Aden DMD Work Phone: [facility] 06-15-2024 Hepatitis B vaccine (recombinant), CpG adjuvanted Xuan MALDONADO Work Phone: [facility] 06-10-2024 RSV, recombinant, protein subunit RSVpreF, adjuvant reconstitu, 120mcg/0.5mL, PF (Arexvy) Xuan MALDONADO Work Phone: [facility] 05-02-2024 hepatitis A vaccine, adult dosage Jade Arora MD Work Phone: [facility] 05-02-2024 Hepatitis B vaccine (recombinant), CpG adjuvanted Jade Arora MD Work Phone: [facility] 03-04-2024 influenza, high dose seasonal, preservative-free Transplant Pharmacist [facility] 03-04-2024 pneumococcal conjuga te (PCV20) vaccine, 20 valent (PREVNAR 20) Transplant Pharmacist [facility] 03-04-2024 influenza virus vaccine, unspecified formulation Generic Provider [facility] 01-24-2023 influenza virus vaccine, unspecified formulation Jourdan ARRIAZA [facility] 01-24-2023 Influenza, Seasonal, Quadrivalent, Adjuvanted Generic Provider [facility] 04-30-2022 zoster vaccine recombinant Brayan Itzkowitz DO Work Phone: [facility] 03-22-2022 tetanus toxoid, reduced diphtheria toxoid, and acellular pertussis vaccine, adsorbed Brayan Itzkowitz DO Work Phone: [facility] 02-01-2022 influenza virus vaccine, unspecified formulation Jourdan ARRIAZA [facility] 02-01-2022 influenza, high dose seasonal, preservative-free Brayan Itzkowitz DO Work Phone: [facility] 02-17-2021 influenza virus vaccine, unspecified formulation Jourdan ARRIAZA [facility] 02-17-2021 influenza, high dose seasonal, preservative-free Brayan Itzkowitz DO Work Phone: [facility] 02-10-2019 influenza, injectabl e, quadrivalent, contains preservative Shelli Boo APRN.WATCH REPAIRER APPRENTICE Work Phone: [facility] 02-10-2019 influenza, injectabl e, quadrivalent, preservative free Virginia Hickman RN [facility] 02-13-2017 influenza virus vaccine, unspecified formulation Jourdan ARRAIZA [facility] 02-13-2017 influenza, injectabl e, quadrivalent, contains preservative Brayan Itzkowitz DO Work Phone: [facility] 01-17-2017 influenza, injectabl e, quadrivalent, contains preservative Virginia Hickman RN [facility] 02-01-2016 influenza virus vaccine, unspecified formulation Jourdan ARRIAZA [facility] 02-01-2016 influenza, seasonal, injectable Brayan Itzkowitz DO Work Phone: [facility] 03-24-2015 zoster vaccine, live Brayan Itzkowitz DO Work Phone: [facility] 02-10-2015 influenza virus vaccine, unspecified formulation Jourdan ARRIAZA [facility] 02-10-2015 influenza, seasonal, injectable Brayan Itzkowitz DO Work Phone: [facility] 01-14-2014 influenza virus vaccine, unspecified formulation Jourdan ARRIAZA [facility] 01-14-2014 influenza, seasonal, injectable Brayan Itzkowitz DO Work Phone: [facility] 01-23-2013 influenza virus vaccine, unspecified formulation Brayan Itzkowitz DO Work Phone: [facility] Payers Date Payer Category Payer Miscellaneous or Other [employer] [id number] 2024 Unknown [id number] 2024 Medicare (Managed Care) [employer] [place] [id number] 2023 Self-pay 2022 Medicaid [employer] MEDICARE A DVANTAGE [id number] 2022 Medicare [id number] 2002 Private Health Insurance [id number] 1955 Unknown [id number] .[id number] 1955 Unknown [id number] [id number] .1258 1955 Unknown [id number] [id number] .1258 1955 Unknown [id number] [id number] .1258 1955 Unknown [id number] 2.16.840.1.708088.3.579.2 .1258 1953 Unknown [id number] 2.16.840.1.809999.3.579.2 .1258 1955 Unknown [id number] 2.16.840.1.777049.3.579.2 .1259 1953 Unknown [id number] 2.16.840.1.177591.3.579.2 .1259 1953 Unknown [id number] 2.16.840.1.065462.3.579.2 .1259 1953 Unknown [id number] 2.16.840.1.641624.3.579.2 .1259 1955 Unknown [id number] 2.16.840.1.476193.3.579.2 .1259 1955 Unknown [id number] 2.16.840.1.056532.3.579.2 .1259 Unknown [id number] 2.16.840.1.172407.3.579.2 .531 Unknown [id number] 2.16.840.1.958061.3.579.2 .531 Unknown [id number] 2.16.840.1.807647.3.579.2 .531 Unknown [id number] 2.16.840.1.500341.3.579.2 .531 Unknown [id number] 2.16.840.1.073757.3.579.2 .531 Unknown [id number] [id number] .531 Unknown [id number] Unknown [id number] Social History Date Type Detail Facility Start: 09-21-2022 End: 11-13-2024 Tobacco smoking status NJIS Ex-smoker (finding) [facility] Start: 1955 Sex Assigned At Male [facility] Start: 05-18-2023 End: 04-25-2024 Sex Assigned At [facility] Start: 02-18-1971 End: 02-18-1991 History of tobacco use Current smoker [facility] Start: 02-18-1971 End: 02-18-1991 History of tobacco use Cigarette Smoker [facility] Start: 11-17-2022 End: 11-13-2024 Tobacco use and exposure Smokeless tobacco non-user [facility] Start: 05-18-2023 End: 04-25-2024 History of Social function [facility] Start: 1955 Sex Assigned At Not on file [facility] Tobacco smoking status No Smokin g Status Entered [facility] Start: 12-13-2023 End: 10-31-2024 Alcoholic beverage intake Current drinker of alcohol (finding) [facility] Start: 12-12-2023 How often do you need to have someone help you when you read instructions, pamphlets, or other written material from your doctor or pharmacy [SILS] Rarely [facility] Do you belong to any clubs or organizations such as restorationist groups, unions, fraternal [...] got money to buy more. Never true [facility] Start: 08-30-2023 Alcohol Comment 2-3 times per week, 1-2 drinks at a time [facility] Start: 12-12-2023 Gender identity Identifies as male gender (finding) [facility] Start: 02-18-2014 Alcohol Comment 1-2 drinks nightly [facility] Start: 04-23-2024 Sexual orientation Heterosexual (finding) [facility] Start: 05-01-2024 End: 11-13-2024 Alcoholic beverage intake Ex-drinker (finding) [facility] Start: 06-19-2024 End: 07-30-2024 Sex Male (finding) [facility] How often do you nee d to have someone help you when you read instructions, pamphlets, or other written material from your doctor or pharmacy [SILS] Rarely [facility] Start: 10-20-2024 Alcohol Comment Recovering alcoholic [facility] Medical Equipment Procedure Code Equipment Code Equipment Origin al Text Equipment Identifier Dates Mesh Srg Pariete x 15cm Vntrl - [id number] Start: 03-04-2014 Comment on above: Description: pariete x composite mesh Stent [place] Viabi l 10mm Metal 100mm 200cm Endoprosthesis No Hole Full Cover - [id number] Start: 10-15-2024 Comment on above: Description: Static magnetic field of 1.5 and 3.0 Rosita Maximum spatial gradient of 3,000 Gauss/cm Maximum MR system reported, whole body averaged specific absorption rate (MARTA) of 4 W/kg Goals Date Patient Goal Desired Activity /State Personal health goal Personal health goal Functional Status Date Assessment Result Facility 08-19-2024 Patient Health [facility] ionnaire 2 item (PHQ-2) [Reported] [facility] 05-31-2024 Are you deaf, or do you have serious difficulty hearing No 05/31/2024 4:27 PM Cecil Peña RN No [facility] 05-31-2024 Are you blind, or do you have serious difficulty seeing, even when wearing glasses No 05/31/2024 4:27 PM Cecil Peña RN No [facility] 05-31-2024 Do you have serious difficulty walking or climbing stairs No 05/31/2024 4:27 PM Cecil Peña RN No [facility] 05-31-2024 Do you have difficul ty dressing or bathing No 05/31/2024 4:27 PM Cecil Peña RN [facility] 05-31-2024 Because of a physica l, mental, or emotional condition, do you have difficulty doing errands alone such as visiting a physician's office or shopping No 05/31/2024 4:27 PM Cecil Peña RN No [facility] 08-28-2014 Are you deaf, or do you have serious difficulty hearing No 08/28/2014 2:34 PM Bebe Gutierrez MA No [facility] 08-28-2014 Are you blind, or do you have serious difficulty seeing, even when wearing glasses No 08/28/2014 2:34 PM Bebe Gutierrez MA No [facility] 08-28-2014 Do you have serious difficulty walking or climbing stairs No 08/28/2014 2:34 PM Bebe Gutierrez MA No [facility] 08-28-2014 Do you have difficul ty dressing or bathing No 08/28/2014 2:34 PM Bebe Gutierrez MA No [facility] 08-28-2014 Because of a physica l, mental, or emotional condition, do you have difficulty doing errands alone such as visiting a physician's office or shopping No 08/28/2014 2:34 PM Bebe Gutierrez MA No [facility] Mental Status Date Assessment Result Facility 05-31-2024 Because of a physica l, mental, or emotional condition, do you have serious difficulty concentrating, remembering, or making decisions No 05/31/2024 4:27 PM Cecil Peña RN No [facility] 08-28-2014 Because of a physica l, mental, or emotional condition, do you have serious difficulty concentrating, remembering, or making decisions No 08/28/2014 2:34 PM Bebe Gutierrez MA No [facility] Clinical Notes 09-21-2022 to 11-15-2024 Mercedez Tobar [facility] - 11/15/2024 2:28 PM Jennie Walker MD - 11/14/2024 2:24 PM Kassie Chamorro RN - 11/13/2024 5:42 PM Kassie Chamorro RN - 11/13/2024 5:42 PM EDTPatient Instructions Note Date & Type Note Facility 11-15-2024 History of Present illness Narrative [facility] OPAT Documentation Note Per orders of Dr. Nicholson honor daptomycin stop date of 11/12. Okay to remove PICC. Per chart review, patient completed daptomycin as planned on 11/12 at [facility], and was discharged from the facility today. Total Time Spent on this Encounter (in minutes): < 5 Mercedez Tobar RPh 11/15/2024 2:28 PM documented in this encounter [facility] 11-15-2024 Note [facility] 11-14-2024 Note [facility] 11-14-2024 History of Present illness Narrative Images from the original note were not included. INFECTIOUS DISEASE - OUTPATIENT FOLLOW UP VISIT - VIRTUAL VISIT Service Date: November 14, 2024 Service Time: 2:24 PM Patient Name: Loyd Blandon Date of : 1955 Reason for visit: Hospital follow up visit SUBJECTIVE: 69-year-old gentleman with history of alcoholic cirrhosis & hepatocellular carcinoma, s/p orthotopic liver transplant 09/09/2024 (CMV +/-, EBV +/+) who I saw at [facility] during his admission from 10/07 to 10/30/24. Pt on 10/16/23 went for an ERCP for Elevated alkaline phosphatase, Post liver transplant assessment and was noted to have Filling defects consistent with stones and sludge was seen on the cholangiogram, A bile leak was found eminating from the donor cystic duct , Large stone proximal to the stenosis could not be removed. [facility] aspiration/drain is growing VRE for which [...] Patient should start on October 31, 2024. benzonatate (TESSALON PERLE) 100 mg capsule Take 1 capsule by mouth three times a day as needed for cough. polyethylene glycol 3350 17 gram packet Take [...] insufficiency 09/09/2024 PERLITA (acute kidney injury) 08/27/2024 Recinos's esophagus Chest pain on breathing 10/15/2024 GERD [...] recurrent infections, so he was on dapto IV though a PICC line until 11/12/24 On 11/13/24 underwent an ERCP where one stent from the biliary tree was seen in the major papilla. Prior biliary sphincterotomy appeared open. Choledocholithiasis was found. Complete removal was accomplished by balloon extraction. As his last ERCP yesterday removed all this stones, I think we have good source control. I think we can stop the dapto he has been on it for since early October. He is overall doing well. He has some back pain which seems chronic. High Risk CMV Asymptomatic CMV viremia, detected below level of quantification 09/30/2024 and gradually increased, but remains < 1000 IU/mL. - Valganciclovir was started 10/14/2024 -11/04 and 11/11 CMV VL is not detected. Prior infections: Parainfluenza virus upper respiratory infection 10/08/2024. This is not likely to be contributing to the current left pleuritic chest pain. Comfortable on room air. SUGGESTIONS / PLAN: 1. S/p daptomycin with last day on 11/12/24. Can pull the picc line. 2. Monitor off abx . 3. CMV VL negative x2. Can stop valcyte 4. F/u with ID as needed The digital content coordinator is CCed to this note I personally monitored antibiotics requiring intensive drug monitoring for therapeutic and adverse effects for toxicity. I spent a total of 37 minutes on the date of the service which included preparing to see the patient, byli-ce-khiz patient care, completing clinical documentation, obtaining and/or reviewing separately obtained history, performing a medically appropriate examination, and counseling and educating the patient/family/caregiver. Jennie Nicholson M.D. Staff, Infectious Disease [facility] Thank you for allowing us to contribute to this patient's care. Please call with questions. Case findings/test results and suggestions discussed with the requesting physician via the shared electronic medical record documented in this encounter [facility] 11-13-2024 Note HNO ID: [id number] Author: KASSIE PIMENTEL RN Service: Nursing Author Type: Registered Nurse Type: Nursing Progress Note Filed: 11/13/2024 17:43 Note Text: Benny Marten's transport picked up pt to transport back to [facility]. [facility] 11-13-2024 Nurse Note Benny Marten's transport picked up pt to transport back to [facility]. [facility] 11-13-2024 Nurse Note Benny Marten's transport picked up pt to transport back to [facility]. Report called to [facility]. Per Benny Alatorre, cloth picker approximately 90 mins from 15:40 pm. AMBULATORY PATIENT EDUCATION NOTE TOPIC: GI PROCEDURES: [...] / FAMILY RESPONSE: Verbalizes understanding of: WORSENING CONDITION-Signs and symptoms of a worsening condition that warrant a call to the physician FOLLOW-UP PLAN: Patient instructed to call with any further issues Recommend - Recommend continued instruction and follow up as directed Contact information given. SUPPLEMENTAL MATERIAL: Procedure Discharge Instructions REFERRAL (RECOMMENDATION): None Electronically Signed By: Kassie Pimentel RN PRE OP LEARNING ASSESSMENT PROCEDURE/SURGERY: GI PROCEDURES: [...] In Department: GASTROENTEROLOGY documented in this encounter [facility] 11-13-2024 Nurse Note Report called to [facility]. Per Benny Alatorre, cloth picker approximately 90 mins from 15:40 pm. [facility] 11-13-2024 Nurse Note AMBULATORY PATIENT EDUCATION NOTE TOPIC: GI PROCEDURES: [...] / FAMILY RESPONSE: Verbalizes understanding of: WORSENING CONDITION-Signs and symptoms of a worsening condition that warrant a call to the physician FOLLOW-UP PLAN: Patient instructed to call with any further issues Recommend - Recommend continued instruction and follow up as directed Contact information given. SUPPLEMENTAL MATERIAL: Procedure Discharge Instructions REFERRAL (RECOMMENDATION): None Electronically Signed By: Kassie Pimentel RN [facility] 11-13-2024 Note Q3 Patient Name: Loyd Blandon Procedure Date: 11/13/2024 1:11 PM Date of : 1955 Admit Type: Outpatient Age: 69 Gender: Male Note Status: Finalized Attending MD: Jane Correia MD, [id number] Procedure: ERCP Indications: Common bile duct stone(s), 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 Refer to note in patient chart for documentation of history and physical. Referring Physician: Nick Cruz (Referring MD) Medicines: General Anesthesia, Cipro [...] administered by the anesthesia team. Findings: A safety attendant film of the abdomen was obtained. Surgical [...] 3 months. Procedure Code(s): --- Professional --- 45263, Endoscopic retrograde cholangiopancreatography (ERCP); with removal of calculi/debris from biliary/pancreatic duct(s) 95606, Endoscopic catheterization of the biliary ductal syste (more content not included)... 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 Refer to note in patient chart for documentation of history and physical. Referring Physician: Nick Cruz (Referring MD) Medicines: General Anesthesia, Cipro [...] administered by the anesthesia team. Findings: A safety attendant film of the abdomen was obtained. Surgical [...] 3 months. Procedure Code(s): --- Professional --- 53907, Endoscopic retrograde cholangiopancreatography (ERCP); with removal of calculi/debris from biliary/pancreatic duct(s) 86933, Endoscopic catheterization of the biliary ductal syste (more content not included)... [facility] 11-13-2024 Note [facility] 11-13-2024 Nurse Note PRE OP LEARNING ASSESSMENT PROCEDURE/SURGERY: GI PROCEDURES: ERCP READINESS TO LEARN COGNITIVE ABILITY: Alert and oriented MOTIVATION TO LEARN: Eager Interested FAMILY SUPPORT: Unable to assess - Family not present PATIENT LEARNS BEST BY: Individual Instruction Written Instruction - Hand-outs Verbal Instruction FACTORS AFFECTING LEARNING: None PHYSICAL LIMITATIONS AFFECTING LEARNING: None Electronically Signed By: Jose Juan Schuster RN In Department: GASTROENTEROLOGY [facility] 11-13-2024 History and physical note PROCEDURAL SEDATION HISTORY AND PHYSICAL EXAM SERVICE DATE: 11/13/2024 SERVICE TIME: 1426 Subjective HPI: This is a 69 year old male who presents with liver transplant, biliary stricture, choledocholithiasis PAST ANESTHESIA HISTORY:No history of adverse event PAST MEDICAL HISTORY Diagnosis Date Acute postoperative respiratory insufficiency 09/09/2024 PERLITA (acute kidney injury) 08/27/2024 Recinos's esophagus Chest pain on breathing 10/15/2024 GERD [...] Patient should start on October 31, 2024. benzonatate (TESSALON PERLE) 100 mg capsule Take 1 capsule by mouth three times a day as needed for cough. DAPTOmycin (CUBICIN) 700 mg/100 mL pgbk iv [...] Deep SIGNATURE: Bebo Barker MD PATIENT NAME: Loyd Blandon DATE: November 13, 2024 TIME: 2:26 PM Created 2023 [facility] Work Phone: 11-13-2024 History and physical note PROCEDURAL SEDATION HISTORY AND PHYSICAL EXAM SERVICE DATE: 11/13/2024 SERVICE TIME: 1426 Subjective HPI: This is a 69 year old male who presents with liver transplant, biliary stricture, choledocholithiasis PAST ANESTHESIA HISTORY:No history of adverse event PAST MEDICAL HISTORY Diagnosis Date Acute postoperative respiratory insufficiency 09/09/2024 PERLITA (acute kidney injury) 08/27/2024 Recinos's esophagus Chest pain on breathing 10/15/2024 GERD [...] Patient should start on October 31, 2024. benzonatate (TESSALON PERLE) 100 mg capsule Take 1 capsule by mouth three times a day as needed for cough. DAPTOmycin (CUBICIN) 700 mg/100 mL pgbk iv [...] Deep SIGNATURE: Bebo Barker MD PATIENT NAME: Loyd Blandon DATE: November 13, 2024 TIME: 2:26 PM Created 2023 documented in this encounter [facility] 11-12-2024 Telephone encounter Note Patient's request for medication is as follows: [...] electronically send to pharmacy. Carina Ziegler RN [facility] 11-12-2024 Miscellaneous Notes Patient's request for medication is as follows: [...] Carina Ziegler RN documented in this encounter [facility] 11-12-2024 Telephone encounter Note RN residential care officer placed return call to [facility] per request. Spoke with Lisa who expressed had spoke with transplant team also. Advised that patient can take medications in am with small sips of water, advised to take any cardiac or seizure medication. Patient not on any medications for diabetes (insulin). If able to tolerate transplant medications on empty stomach, if not will hold until after procedure. Heparin being held currently. Denies any oral blood thinners. Lisa calling to clarify alright to take medication with small sips a water and confirmed. No additional questions and call was ended. MELISSA Webster, RN Specialty Nurse [employer] Super[employer] Digestive Disease [facility] 11-12-2024 Miscellaneous Notes RN residential care officer placed return call to [facility] per request. Spoke with Lisa who expressed had spoke with transplant team also. Advised that patient can take medications in am with small sips of water, advised to take any cardiac or seizure medication. Patient not on any medications for diabetes (insulin). If able to tolerate transplant medications on empty stomach, if not will hold until after procedure. Heparin being held currently. Denies any oral blood thinners. Lisa calling to clarify alright to take medication with small sips a water and confirmed. No additional questions and call was ended. MELISSA Webster, RN Specialty Nurse [employer] Supervisor Digestive Disease documented in this encounter [facility] 11-07-2024 History of Present illness Narrative [facility] OPAT Documentation Note OPAT Pharmacist Lab Review [...] 11/07/2024 10:42 AM documented in this encounter [facility] 11-07-2024 Note [facility] 10-31-2024 History of Present illness Narrative Infectious Diseases Outpatient Parenteral Antimicrobial Therapy Pharmacist Review Patient, Loyd Blandon ([id number]), was reviewed by an OPAT pharmacist and is eligible for OPAT Pharmacist Consult Service for the following medications: Daptomycin. Managing ID provider, Dr. Nicholson, has opted-in to the OPAT Pharmacist Consult Service. OPAT pharmacists will continue to follow patient renal function, therapeutic drug monitoring, and laboratory monitoring throughout the course of therapy. Additional recommendations will appear in follow up notes. If you have any questions, please contact Mercedez Tobar at [phone] or Jeanne Maldonado (ChungYun) at [phone]. Say Maldonado [facility] 10/31/2024 12:15 PM [facility] OPAT Documentation Note Home Health Agency Name: [facility] Phone #: [phone] Vascular Access: PICC Say Maldonado RPh 10/31/2024 12:18 PM documented in this encounter [facility] 10-31-2024 Note [facility] 10-31-2024 Note [facility] 10-29-2024 Note [facility] 10-29-2024 Note [facility] 10-24-2024 Note [facility] 10-23-2024 Note HNO ID: [id number] Author: CAROLINE MÉNDEZ RN Service: Nursing Author Type: Registered Nurse Type: Nursing Progress Note Filed: 10/23/2024 18:51 Note Text: Called report to receiving rn on [id number]. Patient in stable condition for transfer [facility] 10-23-2024 Note [facility] 10-23-2024 History of Present illness Narrative [facility] Outpatient Parenteral Antimicrobial Therapy (OPAT) Start Form Patient Info Patient MRN Patient Name Address Date of [id number] Loyd Blandon [address] [facility] [id number] 1955 Start Date 10/23/2024 Physician Group Cc_main Diagnosis Group Diagnosis GI/Hepatobiliary/Peritoneal: Biliary stent infection Micro-organism ENTEROCOCCUS IV Antibiotics Antibiotic Dose Frequency Stop Date Daptomycin 700mg every 24 hours 11/12/2024 Lab Monitoring Plan Labs Frequency While on CBC/diff Creatinine Creatine Kinase every Monday every Monday every Monday Daptomycin Daptomycin Daptomycin OPAT Pharmacy Consult Yes Cath Care Protocol Flush IV line with 10 mL of normal saline (0.9%) before and after each dose of medication or at a minimum once daily. Flush IV line with 10-20 mL of normal saline (0.9%) after lab draw. Labs may be drawn on Monday if Monday is a holiday. I will set up ID follow up in 2-3 weeks. Follow up Provider Follow up date/time Appointment type Jennie Nicholson MD In-person Provider Monitoring Treatment Course Jennie Nicholson MD Address [address] [place] [address] Prescribing Provider's signature - electronically signed by Jennie Nicholson MD on 10/23/24 at 11:28 AM documented in this encounter [facility] 10-23-2024 Note [facility] 10-22-2024 Note [facility] 10-21-2024 Note [facility] 10-20-2024 Note [facility] 10-19-2024 Note [facility] 10-18-2024 Note [facility] 10-18-2024 Note [facility] 10-17-2024 Note [facility] 10-16-2024 Note [facility] 10-16-2024 Note [facility] 10-07-2024 History and physical note Was called by Dr Dias at [facility] and she spoke with LINDA Kathy Ryan CNP about pt c/o slurred speech, sob, fluid overload and plan for pt to be admitted back to for further evaluation and w/u. Carina Ziegler (Molly), RN, BSN, [facility] Liver Cylinder Tester [facility] 10-07-2024 History and physical note Was called by Dr Dias at [facility] and she spoke with LINDA Kathy Ryan CNP about pt c/o slurred speech, sob, fluid overload and plan for pt to be admitted back to for further evaluation and w/u. Carina Ziegler RN (Molly), BSN, [facility] Liver Cylinder Tester documented in this encounter [facility] 10-07-2024 History of Present illness Narrative Pathology findings from liver biopsy dated 09/09/24 reviewed at Pathology Conference and confirms the diagnoses of ALD cirrhosis, moderately differentiated HCC (see below). AFP: 0-20 (last AFP 2.56) Microvascular Invasion: No Number of viable tumors on explant pathology: 1 Size of largest viable tumor on explant pathology (cm): 1.4 Calculated Loop Score: 1 RETREAT score: 1 Surveillance recommendation: MRI abdomen with contrast, non-contrast CT chest, and serum AFP every 6 months for 3 years, then AFP alone every 6 months until 5 years post-transplantation. Kathy Ryan APRN.CNP October 01, 2024 documented in this encounter [facility] 10-07-2024 History of Present illness Narrative Radiology Service Progress Note PATIENT NAME: Loyd Blandon DATE OF SERVICE: October 07, 2024 TIME: 2:54 PM PATIENT IDENTITY VERIFICATION COMPLETED USING TWO (2) IDENTIFIERS: Name and Date of confirmed by patient verbally and Name and Date of confirmed by identification band. FALL SCREENING: Has the patient had 2 falls in the last year or 1 fall with injury or currently using an Ambulatory Assistive Device (Walker, Cane, Wheelchair, Crutches, etc.)? No PATIENT GENDER DATA: Assigned male at PATIENT RELEVANT IMPLANT DATA REVIEWED: Not Applicable PATIENT PRESENTS WITH AN IMPLANTABLE OR ATTACHED WATCHMAKER APPRENTICE: No RADIOLOGY DEPARTMENT: CT; Exam(s) Completed: Abdomen/Pelvis and Brain PERIPHERAL IV DATA: Not applicable SIGNED BY: RT Rob(R) October 07, 2024 2:54 PM documented in this encounter [facility] 10-07-2024 Note HNO ID: [id number] Author: KAYLEN LADD RT(R) Service: Radiology Author Type: Prepress Operator Type: Progress Notes Filed: 10/07/2024 14:55 Note Text: Radiology Service Progress Note PATIENT NAME: Loyd Blandon DATE OF SERVICE: October 07, 2024 TIME: 2:54 PM PATIENT IDENTITY VERIFICATION COMPLETED USING TWO (2) IDENTIFIERS: Name and Date of confirmed by patient verbally and Name and Date of confirmed by identification band. FALL SCREENING: Has the patient had 2 falls in the last year or 1 fall with injury or currently using an Ambulatory Assistive Device (Walker, Cane, Wheelchair, Crutches, etc.)? No PATIENT GENDER DATA: Assigned male at PATIENT RELEVANT IMPLANT DATA REVIEWED: Not Applicable PATIENT PRESENTS WITH AN IMPLANTABLE OR ATTACHED WATCHMAKER APPRENTICE: No RADIOLOGY DEPARTMENT: CT; Exam(s) Completed: Abdomen/Pelvis and Brain PERIPHERAL IV DATA: Not applicable SIGNED BY: RT Rob(R) October 07, 2024 2:54 PM [facility] 10-03-2024 Telephone encounter Note I called and updated on orders being entered for staple removal by the [facility] staff and she was upset that it had not been done by our team or the staff at [facility]. I informed her that I will discuss the issue with the staff at our [facility] meeting tomorrow. Carina Ziegler RN (Molly), BSN, [facility] Liver Cylinder Tester [facility] 10-03-2024 Miscellaneous Notes I called and updated on orders being entered for staple removal by the [facility] staff and she was upset that it had not been done by our team or the staff at [facility]. I informed her that I will discuss the issue with the staff at our [facility] meeting tomorrow. Carina Ziegler RN (Molly), BSN, [facility] Liver Cylinder Tester I have called to [facility] and d/w our WATCH REPAIRER APPRENTICE about the orders for staple and suture removal that she d/w them on Monday. Carina Ziegler RN (Molly), BSN, [facility] Liver Cylinder Tester Fabiana called regarding speaking with an [place] that stated the pt's sutures should come out, but when she spoke with the nurses at the rehab center stated that they do not have nay orders. . Requesting a return call from the digital content coordinator. Please call Fabiana at [phone]. Mary Blackman documented in this encounter [facility] 10-03-2024 Telephone encounter Note I have called to [facility] and d/w our WATCH REPAIRER APPRENTICE about the orders for staple and suture removal that she d/w them on Monday. Carina Ziegler RN (Molly), BSN, [facility] Liver Cylinder Tester [facility] 10-03-2024 Telephone encounter Note Fabiana called regarding speaking with an [place] that stated the pt's sutures should come out, but when she spoke with the nurses at the rehab center stated that they do not have nay orders. . Requesting a return call from the digital content coordinator. Please call Fabiana at [phone]. Mary Blackman [facility] 10-02-2024 Telephone encounter Note Accidentally routed to Clement[facility]. I re-routed to [employer] so they can work wt this request [facility] 10-02-2024 Miscellaneous Notes Accidentally routed to [employer]. I re-routed to [employer] so they can work wt this request documented in this encounter [facility] 09-18-2024 Telephone encounter Note I spoke with , and set up DC teaching for Monday at 1:30pm in his room. She stated he didn't seem ready for dc as he was still foggy/memory issues and not really ambulating. I will update the team as well and will keep appt for dc education teaching for this Monday. Carina Ziegler RN (Molly), BSN, [facility] Liver Cylinder Tester [facility] 09-18-2024 Miscellaneous Notes I spoke with , and set up DC teaching for Monday at 1:30pm in his room. She stated he didn't seem ready for dc as he was still foggy/memory issues and not really ambulating. I will update the team as well and will keep appt for dc education teaching for this Monday. Carina Ziegler RN (Molly), BSN, [facility] Liver Cylinder Tester documented in this encounter [facility] 09-10-2024 History of Present illness Narrative DONOR ID: [id number] MATCH RUN: [id number] Type of Donor: DCD At risk donor: No Liver pumped: OrganOx TRANSPLANT SEROLOGIES: CMV IgG: Donor Positive/ Recipient Negative 04-29-24 EBV IgG: Donor Positive/ Recipient Positive Donor has tested positive for COVID: No Jadyn Vázquez RN, BSN, [facility] Liver Cylinder Tester documented in this encounter [facility] 09-08-2024 Note SARS-COV-2 (AGENT OF COVID-19) RNA: Not detected [facility] 09-08-2024 Telephone encounter Note UNOS: [id number] Match ID: [id number] Called and informed the patient of a potential liver offer per Dr. Weir. Explained to the patient that per Dr. Weir the liver offer is from a Donation after Circulatory (DCD) donor. Explained the difference between a DCD organ donor and a Standard Criteria Donor (SCD). The patient acknowledged an understanding and an opportunity was provided to ask questions. Informed the patient that there is an increased risk in biliary complications following transplant with this type of donation. The patient was informed that he will be closely monitored for these complications.The patient agreed to come to the [facility] for potential liver transplant. Explained the possibility of a dry run . Instructed the patient to stop eating and drinking at this time. Contact information was provided to the patient. Patient informed to bring meds from home. They verbalized understanding. Pt stated has no symptoms and has not come into contact with anyone who has COVID. Plan to pump liver: Yes Positive High Risk Serologies No Organ with risk criteria present No Donor has tested positive for COVID: No Patient has been informed that extra vessel/s may be used for the procedure and may be from a donor organ that has risk factors present for undetected HIV, HBV, and HCV infection. Explained that the donor was tested prior to organ donation, however, there can be a small chance that the test is negative even if the virus is present. The risk of transmission is very low but not zero. For this reason, all recipients are tested for these viruses after transplant. Karnofsky Score: 30% [place] Blevins RRT [facility] 09-08-2024 Miscellaneous Notes UNOS: [id number] Match ID: [id number] Called and informed the patient of a potential liver offer per Dr. Weir. Explained to the patient that per Dr. Weir the liver offer is from a Donation after Circulatory (DCD) donor. Explained the difference between a DCD organ donor and a Standard Criteria Donor (SCD). The patient acknowledged an understanding and an opportunity was provided to ask questions. Informed the patient that there is an increased risk in biliary complications following transplant with this type of donation. The patient was informed that he will be closely monitored for these complications.The patient agreed to come to the [facility] for potential liver transplant. Explained the possibility of a dry run . Instructed the patient to stop eating and drinking at this time. Contact information was provided to the patient. Patient informed to bring meds from home. They verbalized understanding. Pt stated has no symptoms and has not come into contact with anyone who has COVID. Plan to pump liver: Yes Positive High Risk Serologies No Organ with risk criteria present No Donor has tested positive for COVID: No Patient has been informed that extra vessel/s may be used for the procedure and may be from a donor organ that has risk factors present for undetected HIV, HBV, and HCV infection. Explained that the donor was tested prior to organ donation, however, there can be a small chance that the test is negative even if the virus is present. The risk of transmission is very low but not zero. For this reason, all recipients are tested for these viruses after transplant. Karnofsky Score: 30% [place] Blevins RRT documented in this encounter [facility] 08-29-2024 Telephone encounter Note Spoke with Loyd Blandon's Fabiana, advised that his case was discussed and approved pending colonoscopy, EGD, and repeat MRI liver at liver transplant selection committee on August 28, 2024. Yesica Bright RN [facility] 08-29-2024 Miscellaneous Notes Spoke with Loyd Blandon's Fabiana, advised that his case was discussed and approved pending colonoscopy, EGD, and repeat MRI liver at liver transplant selection committee on August 28, 2024. Yesica Bright RN documented in this encounter [facility] 08-28-2024 History of Present illness Narrative STAFF NOTE: See inpatient note for this encounter on 08/28/2024. Venus Aden DMD See inpatient note for this encounter. 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 The patient's medication profile was reviewed and there are no identified medication issues that would preclude transplant in this patient. Current Facility-Administered Medications on File Prior to Visit Medication dextrose 15 gram/32 mL 15 g (TRUEPLUS) Or glucagon 1 mg injection Or dextrose 10% iv bolus lactulose 40 g CUP potassium chloride 40 mEq oral powder (KLOR-CON) magnesium sulfate iv piggyback in sterile water 2 g 50 mL phosphorus 500 mg tab(s) (K PHOS NEUTRAL) insulin regular human injection (short acting) insulin regular 100 units in NaCl 0.9% 100 mL - ICU NOMOGRAM insulin regular human 2-10 Units bolus from bag acetaminophen 650 mg tab(s) (TYLENOL) polyethylene glycol 3350 17 g packet lactulose 200 g enema (CONSTULOSE) peg 3350-Electrolytes 4,000 mL oral liquid (GOLYTELY) oxyCODONE IR 5 mg tab(s) (ROXICODONE) lactulose 20 g CUP ipratropium-albuterol 3 mL nebulizer solution (DUONEB) NaCl 0.9% iv flush bag pantoprazole DR 40 mg tab(s) (PROTONIX) rifAXIMin 550 mg tab(s) (XIFAXAN) zinc sulfate 220 mg capsule(s) heparin 5,000 Units injection Current Outpatient Medications on File Prior to Visit Medication Sig bumetanide (BUMEX) 2 mg tablet Take 1 tablet by mouth two times a day. spironolactone (ALDACTONE) 100 mg tablet Take 1.5 tablets by mouth once daily. lactulose 10 gram/15 mL solution Take 10 g by mouth once daily. Magnesium Oxide 500 mg cap Take 500 mg by mouth once daily. rifAXIMin (XIFAXAN) 550 mg tablet Take 550 mg by mouth two times a day. lansoprazole (PREVACID) 30 mg capsule Take 1 capsule by mouth once daily. multivitamin tablet Take 1 tablet by mouth once daily. CALCIUM CARB/VIT D3/MINERALS (CALCIUM CARBONATE-VIT D3-MIN) 1,200 mgcalcium -1,000 unit chew Take 2 tablets by mouth once daily. Araceli Mccoy, PharmD Transplant Pharmacy Clinical Specialist Pager: [phone] documented in this encounter [facility] 08-27-2024 History of Present illness Narrative Orthotopic Liver Transplant (OLT) Urgent Inpatient Psychosocial Evaluation Patient: Loyd Blandon Date Evaluated: August 27, 2024 Patient Loyd Blandon was seen for an urgent inpatient eval/follow up on August 27, 2024. conducted a follow up psychosocial evaluation with patient on this date. Patient unable to engage as he was being moved to the ICU. Please see separate inpatient note from this date for full documentation of the assessment, recommendations and plan. WILBERT Norris-S, [facility] August 27, 2024 2:13 PM documented in this encounter [facility] 08-27-2024 Telephone encounter Note The following information has been provided/discussed with the patient/family during Shared Medical Appointment education class: Informed Consent for Organ Transplant Program Participation version November 03, 2022. SRTR information provided and questions answered. Informed patient to call digital content coordinator with any questions. UNOS information regarding multiple listings for organ transplantation Evaluation process including presentation to selection committee and listing criteria Surgical procedure, including post-operative management, hospitalization, immunosuppressive medications and their side effects (including the risk for hypertension, diabetes, kidney problems and cancers) and fci follow up after transplant. Possibility of recurrent disease discussed with patient's . Patient's was advised that if they choose not to proceed with transplant, alternative treatment will be provided Potential medical or psychosocial risks Discussed organ donor risk factors including potential risk of developing transmissible disease including but not limited to HIV, hepatitis B and C, malaria, and malignancy. Patient's right to decline such offers for transplant was also addressed Patient's was provided with [facility] information sheet regarding transplantation of Hepatitis C viremic organs into Hepatitis C negative recipients. Risks and benefits of hepatitis C transplant and treatment were discussed. Patient's was advised that he/she can refuse transplantation at any time prior to transplant without any penalty. Patient's advised that transplants not performed in a medicare-approved hospital may negatively affect payment for medication coverage by Medicare Part B. Text/Email Communication Consent Loyd Blandon's has given a verbal authorization on August 27, 2024 for health information to be sent via unencrypted email or text messages. Loyd Blandon has expressed understanding that unencrypted email (or text) messages and any attachments are at risk and could potentially be read by a third republican when sent through the internet (or cellular phone) and desires to receive his protected health information by unencrypted email (or text). INFORMED CONSENT Loyd Blandon Medical Record: [id number] Informed consent for Organ Transplant Program Participation Informed Consent for Organ Transplant Program Participation version November 03, 2022 was provided to patient's . The risks, benefits, alternatives and anticipated outcomes of the Organ Transplant Program Participation, and tasks of the personnel to be involved were discussed with the patient's . The patient's consents to participation in the Organ Transplant Program. The patient's was provided an opportunity to ask questions and have questions answered. READINESS TO LEARN COGNITIVE ABILITY: Confused at times MOTIVATION TO LEARN: encephalopathic FAMILY SUPPORT: High - Very involved in pt care INSTRUCTION PROVIDED TO: Spouse PATIENT LEARNS BEST BY: Unable to Assess FACTORS AFFECTING LEARNING: Unable to assess PHYSICAL LIMITATIONS AFFECTING LEARNING: encephalopathic LEARNING RESPONSE DIAGNOSIS: ETOH Cirrhosis METHOD OF INSTRUCTION: Verbal instruction PATIENT / FAMILY RESPONSE: Verbalizes understanding of: RISK FACTORS-Unique risk factors related to their disease ETOH cirrhosis FOLLOW-UP PLAN: Contact information given. SUPPLEMENTAL MATERIAL: None REFERRAL (RECOMMENDATION): None Electronically Signed By: Yesica Bright RN In Department: TRANSPLANT CENTER [facility] 08-27-2024 Miscellaneous Notes The following information has been provided/discussed with the patient/family during Shared Medical Appointment education class: Informed Consent for Organ Transplant Program Participation version November 03, 2022. SRTR information provided and questions answered. Informed patient to call digital content coordinator with any questions. UNOS information regarding multiple listings for organ transplantation Evaluation process including presentation to selection committee and listing criteria Surgical procedure, including post-operative management, hospitalization, immunosuppressive medications and their side effects (including the risk for hypertension, diabetes, kidney problems and cancers) and fci follow up after transplant. Possibility of recurrent disease discussed with patient's . Patient's was advised that if they choose not to proceed with transplant, alternative treatment will be provided Potential medical or psychosocial risks Discussed organ donor risk factors including potential risk of developing transmissible disease including but not limited to HIV, hepatitis B and C, malaria, and malignancy. Patient's right to decline such offers for transplant was also addressed Patient's was provided with [facility] information sheet regarding transplantation of Hepatitis C viremic organs into Hepatitis C negative recipients. Risks and benefits of hepatitis C transplant and treatment were discussed. Patient's was advised that he/she can refuse transplantation at any time prior to transplant without any penalty. Patient's advised that transplants not performed in a medicare-approved hospital may negatively affect payment for medication coverage by Medicare Part B. Text/Email Communication Consent Loyd Blandon's has given a verbal authorization on August 27, 2024 for health information to be sent via unencrypted email or text messages. Loyd Blandon has expressed understanding that unencrypted email (or text) messages and any attachments are at risk and could potentially be read by a third republican when sent through the internet (or cellular phone) and desires to receive his protected health information by unencrypted email (or text). INFORMED CONSENT Loyd Blandon Medical Record: [id number] Informed consent for Organ Transplant Program Participation Informed Consent for Organ Transplant Program Participation version November 03, 2022 was provided to patient's . The risks, benefits, alternatives and anticipated outcomes of the Organ Transplant Program Participation, and tasks of the personnel to be involved were discussed with the patient's . The patient's consents to participation in the Organ Transplant Program. The patient's was provided an opportunity to ask questions and have questions answered. READINESS TO LEARN COGNITIVE ABILITY: Confused at times MOTIVATION TO LEARN: encephalopathic FAMILY SUPPORT: High - Very involved in pt care INSTRUCTION PROVIDED TO: Spouse PATIENT LEARNS BEST BY: Unable to Assess FACTORS AFFECTING LEARNING: Unable to assess PHYSICAL LIMITATIONS AFFECTING LEARNING: encephalopathic LEARNING RESPONSE DIAGNOSIS: ETOH Cirrhosis METHOD OF INSTRUCTION: Verbal instruction PATIENT / FAMILY RESPONSE: Verbalizes understanding of: RISK FACTORS-Unique risk factors related to their disease ETOH cirrhosis FOLLOW-UP PLAN: Contact information given. SUPPLEMENTAL MATERIAL: None REFERRAL (RECOMMENDATION): None Electronically Signed By: Yesica Bright RN In Department: TRANSPLANT CENTER documented in this encounter [facility] 08-22-2024 Telephone encounter Note Nurse called pt Fabiana Jung confirmed the patient's name and date of . Reported Symptoms: Sleeps all day; barely sleeps at night Lethargic, confused, and disoriented Oriented to location but not to time (does not know the year) Agitated and unable to focus (e.g., cannot watch TV) Staring off into space Unable to navigate stairs Significant ascites; missed scheduled paracentesis in [place] on Monday and may miss the upcoming one tomorrow New-onset ankle edema; compression socks are ineffective Plan: Nurse strongly advised that the patient go to the Emergency Department ([facility] ED) due to worsening sx Fabiana agreed with the plan and will bring the patient to the [facility] ED. Patient/family is aware of transplant board (TB) recommendations: MRI scheduled for 2024 (order needs to be entered; send MyChart message) Presentation to the LTSC committee pending Fabiana agreeable to plan - she will take him to the ED for immediate care Marce Gaitan RN August 22, 2024 4:14 PM [facility] 08-22-2024 Miscellaneous Notes Nurse called pt Fabiana Jung confirmed the patient's name and date of . Reported Symptoms: Sleeps all day; barely sleeps at night Lethargic, confused, and disoriented Oriented to location but not to time (does not know the year) Agitated and unable to focus (e.g., cannot watch TV) Staring off into space Unable to navigate stairs Significant ascites; missed scheduled paracentesis in [place] on Monday and may miss the upcoming one tomorrow New-onset ankle edema; compression socks are ineffective Plan: Nurse strongly advised that the patient go to the Emergency Department ([facility] ED) due to worsening sx Fabiana agreed with the plan and will bring the patient to the [facility] ED. Patient/family is aware of transplant board (TB) recommendations: MRI scheduled for 2024 (order needs to be entered; send MyChart message) Presentation to the LTDE committee pending Fabiana agreeable to plan - she will take him to the ED for immediate care Marce Gaitan RN August 22, 2024 4:14 PM called in Appears very anxious/nervous States he is failing can barely walk and breathing slow Please review and advise documented in this encounter [facility] 08-22-2024 Telephone encounter Note called in Appears very anxious/nervous States he is failing can barely walk and breathing slow Please review and advise [facility] 08-20-2024 Nurse Note GI Pre-Procedure Spoke with patient: Yes Confirmed date scheduled and patient report time: Yes Procedure Planned:Colonoscopy with or without biopsies based on clinical findings Esophagogastroduodenoscopy(EGD) with or without biopies based on clinical findings, removal of polyps or lesions Is the patient on blood thinners?no Procedure Instructions given to patient: Yes, and they verbalized their understanding of instructions given Patient instructed to take prescribed preparation prior to procedure:Yes, and they verbalized their understanding of instructions given Patient instructed to have family/friend present for procedure transport home:Patient/patient personal banking representative was told that if they do not have a responsible adult accompany them to their procedure; and remain in the endoscopy area until they are discharged; that their procedure cannot be done with sedation or anesthesia and may be cancelled. and They verbalized their understanding and agree to have a responsible adult accompany the patient to their procedure and remain in the endoscopy area. Any barriers to Patient learning: Patient/Patient Commercial Underwriter responded appropriately on phone. Type of instruction given: Verbal by telephone contact. Rosalba Zhu RN [facility] 08-20-2024 Nurse Note GI Pre-Procedure Spoke with patient: Yes Confirmed date scheduled and patient report time: Yes Procedure Planned:Colonoscopy with or without biopsies based on clinical findings Esophagogastroduodenoscopy(EGD) with or without biopies based on clinical findings, removal of polyps or lesions Is the patient on blood thinners?no Procedure Instructions given to patient: Yes, and they verbalized their understanding of instructions given Patient instructed to take prescribed preparation prior to procedure:Yes, and they verbalized their understanding of instructions given Patient instructed to have family/friend present for procedure transport home:Patient/patient personal banking representative was told that if they do not have a responsible adult accompany them to their procedure; and remain in the endoscopy area until they are discharged; that their procedure cannot be done with sedation or anesthesia and may be cancelled. and They verbalized their understanding and agree to have a responsible adult accompany the patient to their procedure and remain in the endoscopy area. Any barriers to Patient learning: Patient/Patient Commercial Underwriter responded appropriately on phone. Type of instruction given: Verbal by telephone contact. Rosalba Zhu RN documented in this encounter [facility] 08-19-2024 History of Present illness Narrative Images from the original note were not included. Subjective Patient ID: Loyd Blandon is a 69 y.o. male who presents for back pain. Loyd is present today for evaluation of back pain. Admits it is mid back, it started yesterday when he got up off the couch, did twist a little to get off the couch, but nothing more than his norm. He could not even get off the couch to go to bed last night so slept on the couch. Describes pain as stabbing pain, 8-12/25. 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 He has taking Ibuprofen 600 mg and it did not help. Pain is constant and stays right in the mid back area. States the pain was sudden onset. No injury. Denies any new numbness or tingling. Scheduled for a paracentesis tomorrow. Current Outpatient Medications on File Prior to Visit Medication Sig Dispense Refill bumetanide (Bumex) 2 MG tablet Take 2 mg by mouth in the morning and 2 mg before bedtime. Calcium Carb-Cholecalciferol (Calcium 500 + D) 500-3.125 MG-MCG tablet Take 1 tablet by mouth 1 (one) time each day carvedilol (Coreg) 3.125 MG tablet Take 3.125 mg by mouth in the morning and 3.125 mg in the evening. Take with meals. (Patient not taking: Reported on 08/19/2024) lactulose (Enulose) 10 GM/15ML solution oral solution Take 10 g by mouth Daily lansoprazole (Prevacid SoluTab) 30 MG disintegrating tablet Take 15 mg by mouth in the morning. Take before meals. Dissolve on tongue before swallowing particles; do not chew, cut, break, or swallow whole.. magnesium oxide (Mag-Ox) 400 MG tablet Take 500 mg by mouth in the morning. Multiple Vitamins-Minerals (Multi For Him) tablet Daily. rifAXIMin (Xifaxan) 550 MG tablet Take 550 mg by mouth in the morning and 550 mg in the evening. spironolactone (Aldactone) 100 MG tablet TAKE 1 TABLET BY MOUTH EVERY DAY FOR 30 DAYS spironolactone (Aldactone) 50 MG tablet Take 50 mg by mouth Daily torsemide (Demadex) 20 MG tablet Take 20 mg by mouth Daily (Patient not taking: Reported on 08/19/2024) [DISCONTINUED] lactulose (Chronulac) 10 GM/15ML solution No current facility-administered medications on file prior to visit. I have reviewed and reconciled the history and medication list with the patient today. No Known Allergies Social History Tobacco Use Smoking status: Former Current packs/day: 0.00 Types: Cigarettes Quit date: 1989 Years since quittin.3 Smokeless tobacco: Never Vaping Use Vaping status: Never Used Substance Use Topics Alcohol use: Yes Comment: 2-3 times per week, 1-2 drinks at a time Drug use: Never Family History Problem Relation Name Age of Onset Hypertension Father Loyd Blandon Breast cancer Neg Hx Colon cancer Neg Hx Ovarian cancer Neg Hx Past Medical History: Diagnosis Date Cataract left eye Cirrhosis (CMS/HCC) GERD (gastroesophageal reflux disease) History of colon polyps Hypertension (CMS/HCC) Liver disease Past Surgical History: Procedure Laterality Date ADENOIDECTOMY BAND HEMORRHOIDECTOMY 06/13/2023 [address]Y [address]COPY 2021 CT ANGIOGRAM ABDOMEN PELVIS 09/25/2023 CT ANGIOGRAM ABDOMEN PELVIS 09/25/2023 CT GUIDED PERCUTANEOUS BIOPSY BONE DEEP 08/06/2024 CT GUIDED PERCUTANEOUS BIOPSY BONE DEEP 08/06/2024 EGD ELBOW SURGERY 2020 HERNIA REPAIR IMAGING PROCEDURE NOT PERFORMED 02/24/2024 IMAGING PROCEDURE NOT PERFORMED TONSILLECTOMY US GUIDED ABDOMINAL PARACENTESIS 05/01/2024 US GUIDED ABDOMINAL PARACENTESIS US GUIDED ABDOMINAL PARACENTESIS 05/31/2024 US GUIDED ABDOMINAL PARACENTESIS US GUIDED ABDOMINAL PARACENTESIS 07/05/2024 US GUIDED ABDOMINAL PARACENTESIS Visit Vitals BP 100/76 Pulse 82 Temp 97 F Resp 16 Ht 5' 9 Wt 193 lb SpO2 98% BMI 28.50 kg/m Smoking Status Former BSA 2.06 m Review of Systems Constitutional: Negative for chills, fatigue and fever. Respiratory: Negative for cough, shortness of breath and wheezing. Cardiovascular: Negative for chest pain, palpitations and leg swelling. Gastrointestinal: Negative for abdominal pain, constipation, diarrhea, nausea and vomiting. Musculoskeletal: Positive for back pain. Skin: Negative for rash. Neurological: Negative for numbness. Objective Physical Exam Constitutional: General: He is in acute distress (In obvious discomfort). HENT: Head: Normocephalic and atraumatic. Eyes: General: No scleral icterus. Cardiovascular: Rate and Rhythm: Normal rate and regular rhythm. Heart sounds: No murmur heard. Pulmonary: Effort: Pulmonary effort is normal. No respiratory distress. Breath sounds: Normal breath sounds. No wheezing, rhonchi or rales. Musculoskeletal: General: No swelling. Thoracic back: Swelling, spasms, tenderness and bony tenderness present. Decreased range of motion. Back: Comments: Severe pain with any movement of the back. Skin: General: Skin is warm and dry. Neurological: General: No focal deficit present. Mental Status: He is alert and oriented to person, place, and time. Gait: Gait abnormal (Using a wheelchair). Psychiatric: Mood and Affect: Mood normal. Behavior: Behavior normal. Assessment/Plan Diagnoses and all orders for this visit: Other acute postprocedural pain - CBC and differential - oxyCODONE (Oxy-IR) 5 MG immediate release capsule; Take 1 capsule (5 mg) by mouth every 6 (six) hours if needed for severe pain for up to 5 days Due to recent biopsy procedure, and pain over lower thoracic spine, they are to contact the surgeon today to see if he can be re-evaluated. Oxycodone prn for pain, OARRS reviewed today. Advised it may not take his pain away completely, goal is to improve function and bring pain to a tolerable level. Did not use Percocet due to APAP component and pt with current liver disease. Will obtain CBC today to r/o acute elevation in WBC count. Did confer with Dr. Sanjay Robledo regarding today's treatment plan. ER if sudden worsening of pain or if pt develops fever, he and his voiced understanding. Type 2 diabetes mellitus with hyperglycemia, without long-term current use of insulin ([facility]/HCC) - Microalbumin / creatinine, urine ratio; Future Ordered urine sample for pt to have completed at his convenience. No follow-ups on file. documented in this encounter [facility] 08-14-2024 Telephone encounter Note Will have to speak with GI team, unable to assist per cardiology. [facility] 08-14-2024 Miscellaneous Notes Will have to speak with GI team, unable to assist per cardiology. documented in this encounter [facility] 08-12-2024 Instructions Dmitri Reyes MD - 08/12/2024 3:20 PM EDT COLONOSCOPY BOWEL PREPARATION INSTRUCTIONS GOLYTELY/NULYTELY/TRILYTE/COLYTE Your doctor has scheduled you for a colonoscopy. To have a successful colonoscopy, you must have a clean colon, that is empty. A clean colon allows your doctor to see the entire colon & diagnose issues like polyps or cancer. For doctors, a clean colon is like driving on a [place] day; a dirty colon like driving in a storm. It is very important that you follow these instructions exactly, or your colonoscopy might not be as effective, could be canceled, and you may need to do the bowel prep and the colonoscopy again. TRANSPORTATION REQUIREMENTS You are receiving IV sedation. For your safety, a responsible adult escort must accompany you to and from your procedure: Your adult escort MUST be present with you at check-in for your colonoscopy. Your adult escort MUST remain in the endoscopy area until you are discharged. Your adult escort MUST transport you home once you are discharged. You are NOT allowed to operate any form of transportation (i.e. drive a car, bicycle, etc.) or leave the Endoscopy Center ALONE. It is not safe to do so. If you cannot meet these requirements, your procedure will be canceled. MEDICATION REQUIREMENTS For your safety, certain medications will need to be stopped or adjusted before you can have your procedure: BLOOD THINNERS: If you take blood thinners, such as Coumadin (warfarin), Plavix (clopidogrel), Ticlid (ticlopidine hydrochloride), Agrylin (anagrelide), Xarelto (Rivaroxaban), Pradaxa (Dabigatran), Eliquis (Apixaban), or Effient (Prasugrel), contact the physician who is prescribing these medications at least 2 weeks prior to your procedure to discuss any necessary adjustments. DIABETES: If you take medications for diabetes, your dosage may need to be adjusted. If you are being treated for diabetes with insulin, diabetic pills, or other injectable medications do not take your REGULAR dose after midnight on the day of your procedure. If you are taking any other types of insulin such as Lantus, Humalog, NPH (long-acting insulin), or 70/30 insulin, take half your normal dose the day before your procedure. DIABETES/WEIGHT MANAGEMENT: If you take medications for weight-loss, your dosage may need to be adjusted Contact the doctor who prescribes this medication for further instructions. If you take medications for weight-loss like semaglutide (Ozempic, Wegovy, Rybelsus), dulaglutide (Trulicity), liraglutide (Victoza, Saxenda), exenatide (Byetta, Bydureon), or lixisenatide (Adylyxin), stop your medication 1 week prior to your procedure. If you take medications like canagliflozin (Invokana), dapagliflozin (Farxiga, Forxiga), empagliflozin (Jardiance), stop your medication 3 days prior to your procedure. If you take ertugliflozin (Steglatro) stop your medication 4 days prior to your procedure. IRON: If you take iron pills, STOP them 1 week BEFORE your procedure, may resume after. OTHER MEDS: May take all other medications (including aspirin, antibiotics, water pills / diuretics like Lasix or Metolozone, blood pressure meds, etc.) at their usual scheduled time with a sip of water. DIET REQUIREMENTS The day before your colonoscopy, you may have a clear liquid diet (see below). The day of your colonoscopy, you may continue a clear liquid diet until 3 hours before your colonoscopy. Within 3 hours of your colonoscopy, take only any medications (as above) with a sip of water. Clear Liquid Diet Broth (chicken, beef or vegetable broth or bullion. Just the broth, no solids). Water Coffee or Tea (NO milk or creamer), but sugar and sugar substitutes are allowed. Clear liquids including clear, yellow, green, blue (NO red, NO orange, NO purple) Sodas / soft drinks Gatorade or other sports drinks Ernst-Aid or flavored drinks Plain Jell-O or other gelatins Fruit juice (strained; no-pulp) Popsicles or hard candy BOWEL PREPARATION (GOLYTELY/NULYTELY/TRILYTE/COLYTE ) Split Dosing Bowel Prep: This means drinking your bowel prep in two doses. Split dosing helps clean your colon better and makes it less likely that your procedure will be canceled. Fill your prescription for Golytely/Nulytely/Trilyte/Colyte: The afternoon before your colonoscopy, mix the solution and refrigerate. You may add the flavor pack (if present) that came with the bowel preparation. Do not add ice, sugar, or other flavorings to the solution. You will drink your prep in two doses, by several hours. On the evening before your colonoscopy: 1. 6 PM drink the first half of the bowel preparation solution. Drink one 8-ounce glass every 15 minutes. 2. Six hours before your colonoscopy, drink the second half of the solution. Drink one 8-ounce glass every 15 minutes. 3. You may continue a clear liquid diet until 3 hours before your colonoscopy. Bowel prep can work differently from person to person. Some people's bowels move slowly and they may need different instructions. Please see your doctor in office or virtually for personalized bowel prep instructions if you have: Medical condition that needs special accommodations Had a poor bowel prep results or failed bowel prep attempts in the past. Had difficulty with anesthesia during the procedure. FREQUENTLY ASKED QUESTIONS Q: What if I suffer from constipation? A: Recommend taking extra laxatives to resolve your constipation days prior to entering the bowel prep day. Q: What if have had prior poor preps results in past? A: Contact your physician as you will likely need additional bowel prep instructions. Q: What if I have motility issues like Parkinson's, MS (multiple sclerosis), wheelchair dependent, etc.? or on medications that slow bowel emptying (narcotics, gabapentin, anticholinergic medications etc.) A: Contact your physician as you will likely need extra time and additional laxatives to complete your bowel prep. Q: What if I cannot drink large volume of liquid? A: Start your prep 2-3 hours earlier to allow yourself more time to complete the entire prep. Q: What if I can't finish my bowel prep? A: If you cannot finish your entire bowel prep, it is likely that your colonoscopy will need to be rescheduled due to poor prep quality. Q: What if I had bariatric surgery? Do I still have to complete the entire prep? A: Yes, gastric bypass surgery involves the stomach & small bowel. You may need to drink smaller amounts, slower (may need more time to complete your bowel prep). Gastric bypass does not alter the length of your colon so you will need to complete the entire bowel prep, it may just take longer time to complete it. Q: What if I am on dialysis? A: Please consult your hat brim curler prior to scheduling to get instructions pertinent to you. In general, dialysis patients take the Golytely bowel prep and have the procedure same day of their dialysis (colonoscopy in AM, dialysis in PM). Q: How do I know if something is considered as clear liquid diet? A: If you can pour it in a glass and you can see through it, it is considered clear liquid Q: Can I eat nuts, seeds, beans, popcorn, dried fruits, vegetables & fruits that have skin peel? A: No, you will need to not eat these items starting 3 days prior to procedure. Q: Can I take Uber/Lyft/taxi/bus home? A: An adult MUST be present with you at check-in for your colonoscopy and remain in the endoscopy area until you are discharged. You can take Uber home only if this adult escort is with you at check in, remain in the endoscopy area until you are discharged, and takes the Uber with you to home. Q: Can I sleep it off here and drive myself home? A: No, you must have an adult with you at time of procedure check in, remain in the endoscopy center during your procedure, and drive you home. You cannot drive a vehicle after your procedure the rest of the day. documented in this encounter [facility] 07-31-2024 Telephone encounter Note External lab orders from [facility] received and scanned. [facility] 07-31-2024 Miscellaneous Notes External lab orders from [facility] received and scanned. documented in this encounter [facility] 07-30-2024 Telephone encounter Note RADIOLOGIST REQUEST / APPROVAL FORM STAFF RADIOLOGIST: Dr. Randall PROCEDURE TO BE DONE UNDER: CT PROCEDURE REQUESTED: CORE Requested PROCEDURE: Approved TIME SLOT NEEDED: 1 Hour NOTES: History of HCC - T10 and T12 marrow replacing lesions. Right T10 pedicle/body lesion is larger SPECIAL LABS/ PROCESSING: None Pre-procedure labs: CBC: not needed INR: not needed COVID: not needed SIR Bleeding risk category for this procedure: low risk. Reference from [facility] Floor Covering Contractor: [email or web address] STAFF SIGNATURE: Lex Galo MD DATE: July 30, 2024 TIME: 2:54 PM [facility] Work Phone: 07-30-2024 Miscellaneous Notes RADIOLOGIST REQUEST / APPROVAL FORM STAFF RADIOLOGIST: Dr. Randall PROCEDURE TO BE DONE UNDER: CT PROCEDURE REQUESTED: CORE Requested PROCEDURE: Approved TIME SLOT NEEDED: 1 Hour NOTES: History of HCC - T10 and T12 marrow replacing lesions. Right T10 pedicle/body lesion is larger SPECIAL LABS/ PROCESSING: None Pre-procedure labs: CBC: not needed INR: not needed COVID: not needed SIR Bleeding risk category for this procedure: low risk. Reference from [facility] Floor Covering Contractor: [email or web address] STAFF SIGNATURE: Lex Galo MD DATE: July 30, 2024 TIME: 2:54 PM BX. COORDINATOR INFORMATION LAB RESULTS: INR (no units) Date Value 05/31/2024 1.1 APTT (sec) Date Value 04/29/2024 28.6 Platelet Count (k/uL) Date Value 05/31/2024 147 03/06/2014 130 Current Outpatient Medications Medication Sig bumetanide (BUMEX) 2 mg tablet Take 1 tablet by mouth two times a day. carvedilol (COREG) 3.125 mg tablet Take 1 tablet by mouth two times a day. spironolactone (ALDACTONE) 100 mg tablet Take 1.5 tablets by mouth once daily. lactulose 10 gram/15 mL solution Take 10 g by mouth once daily. Magnesium Oxide 500 mg cap Take 500 mg by mouth once daily. rifAXIMin (XIFAXAN) 550 mg tablet Take 550 mg by mouth two times a day. lansoprazole (PREVACID) 30 mg capsule Take 1 capsule by mouth once daily. multivitamin tablet Take 1 tablet by mouth once daily. CALCIUM CARB/VIT D3/MINERALS (CALCIUM CARBONATE-VIT D3-MIN) 1,200 mgcalcium -1,000 unit chew Take 2 tablets by mouth once daily. No current facility-administered medications for this visit. ALLERGIES No Known Allergies IMAGES: available in [facility] MRI 07/05/24 GUIDELINES FOR HOLDING ANTI-PLATELET AND ANTI- COAGULATION THERAPY: N/A NURSE SIGNATURE: Jeanne Jackson RN DATE: July 30, 2024 TIME: 11:08 AM RADIOLOGY CALL CENTER INTAKE CYBER INCIDENT HANDLER: 000 EXT: DATE: 07/30/2024 TIME: 10:08 am TRACKING #. [id number] REQUESTING PERSON: Meena PHONE/PAGER: [id number] REQUESTING STAFF: Derrick Harris PHONE/PAGER: [phone] SPECIFICS OF THE REQUEST: (Please be as detailed as possible. If request is lymph node biopsy, specify LOCATION of the node if possible): T-10 ot T12 Vertebrae (For example: biopsy liver mass or biopsy pelvic lymph node ) SPECIAL REQUESTS: TISSUE SAMPLE, LABWORK: N/A -Fine needle aspiration (FNA), core biopsy, no preference, unsure, specific processing request for pathology (For example: send for ER, ME, HER2/kacey or possible lymphoma send in RPMI solution ) IS THIS REQUEST PART OF A RESEARCH PROTOCOL: No IF YES: List specifics of request and name/contact number of research coordinator and primary physician. MEDICAL DIAGNOSIS: Hepatocellular Carcinoma (For example: history of breast cancer with liver mass or history of lymphoma ) TYPE AND DATE OF THE EXAM THAT IS THE BASIS OF THE REQUEST: MRI Date: 07/05/24 (Note: Requests for random organ biopsies, specifically liver and kidney random biopsies do not need imaging. ALL OTHER CASES NEED IMAGING TO EVALUATE APPROPRIATENESS/FEASIBILITY OF THE REQUEST) IMAGING: Outside (If the imaging was obtained outside the [facility] system, then it needs to be submitted for review prior to approval.) Note to all persons requesting biopsies: All biopsy requests will be scheduled as quickly as possible, based on the clinical urgency, availability of appointment times, the need to hold anti-thrombolytic therapy (aspirin, blood thinners) and the patient s schedule, including the need for an available otr refrigerated cdl truck driver. If a percutaneous biopsy or drainage is not felt to be safe or an alternative method for establishing a diagnosis is possible, this will be discussed directly with the requesting physician. documented in this encounter [facility] 07-30-2024 Telephone encounter Note BX. COORDINATOR INFORMATION LAB RESULTS: INR (no units) Date Value 05/31/2024 1.1 APTT (sec) Date Value 04/29/2024 28.6 Platelet Count (k/uL) Date Value 05/31/2024 147 03/06/2014 130 Current Outpatient Medications Medication Sig bumetanide (BUMEX) 2 mg tablet Take 1 tablet by mouth two times a day. carvedilol (COREG) 3.125 mg tablet Take 1 tablet by mouth two times a day. spironolactone (ALDACTONE) 100 mg tablet Take 1.5 tablets by mouth once daily. lactulose 10 gram/15 mL solution Take 10 g by mouth once daily. Magnesium Oxide 500 mg cap Take 500 mg by mouth once daily. rifAXIMin (XIFAXAN) 550 mg tablet Take 550 mg by mouth two times a day. lansoprazole (PREVACID) 30 mg capsule Take 1 capsule by mouth once daily. multivitamin tablet Take 1 tablet by mouth once daily. CALCIUM CARB/VIT D3/MINERALS (CALCIUM CARBONATE-VIT D3-MIN) 1,200 mgcalcium -1,000 unit chew Take 2 tablets by mouth once daily. No current facility-administered medications for this visit. ALLERGIES No Known Allergies IMAGES: available in [facility] MRI 07/05/24 GUIDELINES FOR HOLDING ANTI-PLATELET AND ANTI- COAGULATION THERAPY: N/A NURSE SIGNATURE: Jeanne Jackson RN DATE: July 30, 2024 TIME: 11:08 AM [facility] 07-30-2024 Telephone encounter Note RADIOLOGY CALL CENTER INTAKE CYBER INCIDENT HANDLER: 000 EXT: DATE: 07/30/2024 TIME: 10:08 am TRACKING #. [id number] REQUESTING PERSON: Meena PHONE/PAGER: [phone] REQUESTING STAFF: Derrick Harris PHONE/PAGER: [phone] SPECIFICS OF THE REQUEST: (Please be as detailed as possible. If request is lymph node biopsy, specify LOCATION of the node if possible): T-10 ot T12 Vertebrae (For example: biopsy liver mass or biopsy pelvic lymph node ) SPECIAL REQUESTS: TISSUE SAMPLE, LABWORK: N/A -Fine needle aspiration (FNA), core biopsy, no preference, unsure, specific processing request for pathology (For example: send for ER, ME, HER2/kacey or possible lymphoma send in RPMI solution ) IS THIS REQUEST PART OF A RESEARCH PROTOCOL: No IF YES: List specifics of request and name/contact number of research coordinator and primary physician. MEDICAL DIAGNOSIS: Hepatocellular Carcinoma (For example: history of breast cancer with liver mass or history of lymphoma ) TYPE AND DATE OF THE EXAM THAT IS THE BASIS OF THE REQUEST: MRI Date: 07/05/24 (Note: Requests for random organ biopsies, specifically liver and kidney random biopsies do not need imaging. ALL OTHER CASES NEED IMAGING TO EVALUATE APPROPRIATENESS/FEASIBILITY OF THE REQUEST) IMAGING: Outside (If the imaging was obtained outside the [facility] system, then it needs to be submitted for review prior to approval.) Note to all persons requesting biopsies: All biopsy requests will be scheduled as quickly as possible, based on the clinical urgency, availability of appointment times, the need to hold anti-thrombolytic therapy (aspirin, blood thinners) and the patient s schedule, including the need for an available otr refrigerated cdl truck driver. If a percutaneous biopsy or drainage is not felt to be safe or an alternative method for establishing a diagnosis is possible, this will be discussed directly with the requesting physician. [facility] 07-30-2024 Telephone encounter Note Please disregard. I've spoken with the nurse about this and the orders are correct. [facility] 07-30-2024 Miscellaneous Notes Please disregard. I've spoken with the nurse about this and the orders are correct. Per patient's spouse, IR stated that the biopsy orders were not placed correctly. documented in this encounter [facility] 07-30-2024 Telephone encounter Note Per patient's spouse, IR stated that the biopsy orders were not placed correctly. [facility] 07-25-2024 History of Present illness Narrative Radiation Oncology - New Patient/Consult Note PATIENT NAME: Loyd Blandon PATIENT REQUESTING PROVIDER: Dr. Reyes. DIAGNOSIS: 68 year old male with decompensated cirrhosis and a 1 cm OPTN/LIRADS 5 lesion radiographically consistent with hepatocellular carcinoma in the liver dome, question of T10/T12 marrow replacing lesion on MRI, no tissue diagnosis. HPI: 68 year old male who presents with above diagnosis, for an opinion regarding the role of radiation therapy in the management of the patient's disease. Final recommendations will be communicated back to the requesting physician by way of the shared medical record, or letter to requesting physician via US mail. Mr. Loyd Blandon is a very pleasant 68-year-old gentleman presenting today for discussion of management options of hepatocellular carcinoma with potential metastases to the spine. He has a history of alcoholic cirrhosis/MASLD overlap with a MELD score of 15 and complicated by significant ascites requiring multiple drainages as well as compression causing collapse of right lower lobe and right middle lobe. He was noted to have a 1 cm OPTN/LIRADS 5a lesion in the liver dome with arterial enhancement, venous washout and pseudocapsule on CT scan of the liver in April 2024. Given this plus his decompensated cirrhosis was initiating a liver transplant workup at [facility]. During imaging with a CT scan of the chest in April 2024 he was noted to have a 2 mm indeterminate left upper lobe lung nodule, however incidentally noted was a sclerotic lesion at T10. He underwent further evaluation with an MRI of the entire spine June 08, 2024. This was significantly complicated by motion artifact but demonstrated suggestion of a low intensity T1 marrow signal lesion within the T10 and T12 vertebral bodies, however this was not felt to be definitive or diagnostic given motion artifact. For this reason he underwent repeat MRI 1 month later on July 05, 2024 which appeared to demonstrate potential progression of previously noted findings at T9, T10 and T12 in addition to prior chronic superior endplate compression fracture at T7/T8. Physically and functionally he is at his baseline, though quite impaired by his cirrhosis and associated ascites/pulmonary and abdominal compression. KPS 70. Denies back pain or neurological symptoms associated with his spine lesion, does have some anterior right sided rib pain which could either be second to his ascites or potentially neuropathic due to thoracic spine lesion nerve root involvement. Meld Score MELD 3.0: 15 at 05/31/2024 11:38 AM MELD-Na: 10 at 05/31/2024 11:38 AM Calculated from: Serum Creatinine: 1.3 mg/dL at 05/31/2024 11:38 AM Serum Sodium: 131 mmol/L at 05/31/2024 11:38 AM Total Bilirubin: 1 mg/dL at 05/31/2024 11:38 AM Serum Albumin: 3 g/dL at 05/31/2024 11:38 AM INR(ratio): 1.1 at 05/31/2024 11:38 AM ALLERGIES No Known Allergies MEDICATIONS: bumetanide (BUMEX) 2 mg tablet Take 1 tablet by mouth two times a day. carvedilol (COREG) 3.125 mg tablet Take 1 tablet by mouth two times a day. spironolactone (ALDACTONE) 100 mg tablet Take 1.5 tablets by mouth once daily. lactulose 10 gram/15 mL solution Take 10 g by mouth once daily. Magnesium Oxide 500 mg cap Take 500 mg by mouth once daily. rifAXIMin (XIFAXAN) 550 mg tablet Take 550 mg by mouth two times a day. lansoprazole (PREVACID) 30 mg capsule Take 1 capsule by mouth once daily. multivitamin tablet Take 1 tablet by mouth once daily. CALCIUM CARB/VIT D3/MINERALS (CALCIUM CARBONATE-VIT D3-MIN) 1,200 mgcalcium -1,000 unit chew Take 2 tablets by mouth once daily. PAST MEDICAL HISTORY Diagnosis Date Recinos's esophagus GERD (gastroesophageal reflux disease) Gout HTN (hypertension) Hx of colonic polyps Hyperlipidemia Liver cirrhosis (HCC) Liver disease Osteoporosis Umbilical hernia Prior radiation therapy, collagen vascular disease, or inflammatory bowel disease: No Any implanted or external electric devices? No PAST SURGICAL HISTORY Procedure Laterality Date CHOLECYSTECTOMY 04/17/2011 COLONOSCOPY every 3 years EGD every 3 years ELBOW SURGERY HX Right screw insertion FAMILY HISTORY Problem Relation Age of Onset COPD Mother Coronary Artery Disease Mother Hypertension Mother Emphysema Mother Coronary Artery Disease Father Hypertension Father Heart Failure Father None Sister Social History Tobacco Use Smoking status: Former Current packs/day: 0.00 Average packs/day: 1 pack/day for 20.0 years (20.0 ttl pk-yrs) Types: Cigarettes Start date: 02/18/1971 Quit date: 02/18/1991 Years since quittin.4 Vaping Use Vaping status: Never Used Substance Use Topics Alcohol use: Not Currently Drug use: No COMPLETE REVIEW OF SYSTEMS: As noted in HPI PHYSICAL EXAM: VS: BP 107/71 Pulse (!) 53 Temp 36.9 C (98.4 F) (Oral) Resp 18 Wt 82.6 kg (182 lb 1.6 oz) SpO2 98% BMI 26.89 kg/m KPS: 70 General appearance: Alert and oriented. No acute distress. HEENT: NCAT. Sclera anicteric. PER. EOMI. Neck: Normal ROM. Abdomen: Soft. Nontender. Substantial ascites and related abdominal distention. Musculoskeletal: Normal ROM in extremities. No bone or spine tenderness. Neuro: No focal deficits. Skin: No rashes noted RADIOLOGY/LABORATORY DATA: see HPI ASSESSMENT AND PLAN: 68 year old male with decompensated cirrhosis and a 1 cm OPTN/LIRADS 5 lesion radiographically consistent with hepatocellular carcinoma in the liver dome, question of T10/T12 marrow replacing lesion on MRI, no tissue diagnosis. We discussed that there is some potential discordance of clinical findings with very small liver dome tumor (which would be assumed to have low risk of spread) however MRI suggestive of vertebral body metastases given signal findings as well as growth over period of 1 month surveillance. Discussed findings of 1 cm liver dome lesion meeting criteria for hepatocellular carcinoma. If this were an isolated finding in a patient going for transplant would observe lesion and follow-up for growth as risk of dissemination would be low, and he would not receive the exception points for a single 1 cm lesion. If he truly has metastatic disease he would not be a candidate for liver transplant (discussed and explained rationale). While this is concerning based on review of MRI imaging alone is not definitive and given his advanced cirrhosis/very limited treatment options without transplant we discussed proceeding with CT-guided biopsy of the spine lesion for more definitive diagnosis. Reviewed that finding of metastases (hepatocellular carcinoma or potentially other primary tumor) would disqualify him from transplant, however and able planning for appropriate treatment directed by tumor type and histology. Benign biopsy findings would not absolutely rule out possibility of malignancy, however would leave further room for discussion with transplant team regarding potential additional workup and options. Patient demonstrates understanding and agreement with biopsy. Will reach out to interventional radiology to schedule. Patient would like to do at [facility] if feasible. Follow-up with results. Signed by: Derrick Harris MD Medical Decision Making: Problems: High: Illness/injury w/ threat to life/body function Risk: High: High risk from testing/treatment Medical Decision Making Level: 5 - High cc: Sanjay Robledo II, MD [address] [place] [id number] Dmitri Reyes [id number] [facility] [id number] documented in this encounter [facility] 07-25-2024 History of Present illness Narrative NAME: Loyd Blandon AGE: [age] year old PRESENTING COMPLAINT & HISTORY Loyd Blandon is a 69 year old male with PMH of 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 I initially evaluated patient in 04/2024 in pre-LT clinic for newly decompensated cirrhosis. MRI Liver obtained in 01/2024 at [facility] had noted the following: FINDINGS: LIVER: Small heterogeneous liver with nodular margins. Subtle masslike area within posterior right hepatic lobe, 3.9 x 3.7 cm in axial plane seen only on the postcontrast images. No corresponding findings on other sequences or planes. Of note, this lesion was initially commented on a CT scan at [facility] in 09/2023, but the subsequent MR sequences from 10/2023 did not have proper contrast administration, so the lesion was not able to be well evaluated. A follow-up CT liver (triple phase) done at [facility] in 04/2024 noted the followin.0 cm LI-RADS 5 lesion in segment 7 without tumor thrombus No evidence of metastatic disease Massive ascites, massive right pleural effusion Both images were reviewed at [facility], and there was concern for a bone lesion in the thoracic spine. Given small size of HCC, repeat MRI was advised to be completed in 3 months, and dedicated CT spinal imaging was obtained to evaluate bony lesion in T10-T12 region. MRI spine ([facility], 07/05/2024): Bone marrow signal/fracture: Marrow replacing T1 hypointense signal is identified at the T9, T10, and T12 vertebral bodies. This extends into the right pedicle at T10. There is STIR hyperintensity at T9 and T10 vertebral bodies. There is also possible marrow replacement seen at the T2 vertebral body (series 5, image 12) and inferior T11 vertebral body (series 10, image 49). Multiple superior endplate height loss or compression deformities at T5, T7, T8 and T9. There is interval progression of height loss of the T9 vertebral body when compared to prior examination. IR referral was placed to discuss biopsy of thoracic lesion, and patient is scheduled to see Dr. Harris later today. Two AFP values have been checked in Apr and May 2024, respectively and are slightly above 2.0. Cirrhosis history: Patient presented to OSH in February 2023 with AMS and brain fog, and was diagnosed with cirrhosis via imaging with negative viral and autoimmune hepatitis work-up. Etiology of cirrhosis was favored to be secondary to prior alcohol use disorder. He was initially started on Lasix 60 mg q12h and Spironolactone 150 mg daily, and started to need paracentesis every 3 weeks. He also developed a right HH, and required thoracentesis two separate times. Screening EGD revealed presence of large Evs, therefore Coreg was started at low dose. Patient had been using alcohol daily for about 30 years, typically mixed gin or vodka based drinks, 3-4 per night. Last drink was in October 2023. He has never engaged in an alcohol recovery program or used medications for cravings. Recent updates: Patient is accompanied at visit today by his , who helps to provide collateral history. He has been using Lactulose 10-15 cc daily and Rifaximin 550 mg BID. He believes that his HE is well managed. Remains sober. During last visit in April 2024, we had advised patient to transition to Torsemide 60 mg q12h from Furosemide, and had also advised increasing Spironolactone from 150 mg-->200 mg daily. Patient was unable to tolerate Torsemide twice daily dosing due to development of PERLITA, and had to gradually be transitioned to Torsemide 40 mg daily. He remains on this presently, but complains of worsening abdominal distention and lower extremity swelling with an almost 20 lb weight gain. He continues to need serial paracentesis [id number]. Last paracentesis was in late June 2024 with over 6 L removed (previously only need 2-3 L removed). 11/27/23 EGD: Findings: Two columns of non-bleeding, large esophageal varices that did not flatten with air insufflation. There were no high risk stigmata. Due to the patient living far away and challenges with transportation will start NSBB for primary prophylaxis Irregular Z-line with a few small islands of salmon colored mucosa suggestive of possible Recinos's. They were not biopsied due to underlying varices Moderate PHG. No gastric varices Normal duodenal bulb and D2 Colonoscopy 2019 - had polypectomy - repeat in 5 years Paracentesis: every 3-4 weeks, last one 04/03/2024 PAST SURGICAL HISTORY Procedure Laterality Date CHOLECYSTECTOMY 04/17/2011 COLONOSCOPY every 3 years EGD every 3 years ELBOW SURGERY HX Right screw insertion PAST MEDICAL HISTORY Diagnosis Date Recinos's esophagus GERD (gastroesophageal reflux disease) Gout HTN (hypertension) Hx of colonic polyps Hyperlipidemia Liver cirrhosis (HCC) Liver disease Osteoporosis Umbilical hernia Social History Tobacco Use Smoking status: Former Current packs/day: 0.00 Average packs/day: 1 pack/day for 20.0 years (20.0 ttl pk-yrs) Types: Cigarettes Start date: 02/18/1971 Quit date: 02/18/1991 Years since quittin.4 Vaping Use Vaping status: Never Used Substance Use Topics Alcohol use: Not Currently Drug use: No Current Outpatient Medications Medication Sig Dispense Refill bumetanide (BUMEX) 2 mg tablet Take 1 tablet by mouth two times a day. 180 tablet 3 carvedilol (COREG) 3.125 mg tablet Take 1 tablet by mouth two times a day. 180 tablet 5 spironolactone (ALDACTONE) 100 mg tablet Take 1.5 tablets by mouth once daily. 45 tablet 2 lactulose 10 gram/15 mL solution Take 10 g by mouth once daily. Magnesium Oxide 500 mg cap Take 500 mg by mouth once daily. rifAXIMin (XIFAXAN) 550 mg tablet Take 550 mg by mouth two times a day. lansoprazole (PREVACID) 30 mg capsule Take 1 capsule by mouth once daily. multivitamin tablet Take 1 tablet by mouth once daily. CALCIUM CARB/VIT D3/MINERALS (CALCIUM CARBONATE-VIT D3-MIN) 1,200 mgcalcium -1,000 unit chew Take 2 tablets by mouth once daily. No current facility-administered medications for this visit. ALLERGIES No Known Allergies FAMILY HISTORY Problem Relation Age of Onset COPD Mother Coronary Artery Disease Mother Hypertension Mother Emphysema Mother Coronary Artery Disease Father Hypertension Father Heart Failure Father None Sister GI SPECIFIC ROS Difficulty swallowing / foods sticking in throat: No Heartburn: No Hoarseness: No Chronic cough: No Regurgitation: No Chest pain: No Filling up quickly at meals: No Loss of appetite: No Nausea: No Vomiting: No Abdominal pain: No Recent change in bowel movements: No Bloody or black, bowel movements: No Constipation: No Diarrhea: No Loss of control of bowel movements: No Night sweats, fever, chills: No Thought or memory problems: No Fluid in abdomen (ascites): No Prominent leg swelling: Yes Vomiting blood: No Recent change in weight: No PHYSICAL EXAMINATION BP 107/71 Pulse 53 Temp 98.4 Ht 5' 9 (1.75m) Wt 182 lb (82.6kg) SpO2 98% BMI 26.86 kg/(m^2). General Appearance: Well appearing, alert/oriented x 3, in no acute distress, well-hydrated, well nourished. Eyes: no icterus Oropharynx: Lips, tongue, and oral mucosa normal. There is no thrush or oral ulcers. Lungs:breath sounds clear to auscultation bilaterally, no crackles, rhonchi, or wheezes Heart: regular rate and rhythm, no murmurs or gallops. Abdomen: appreciable ascites, but not tense, normal bowel sounds, Extremities: 1+ pitting edema from ankles to thighs Skin: no jaundice, no spider angiomas, no palmar erythema Neuro:alert, oriented x 3, pleasant and in no acute distress, no asterixis appreciated b/l Recent Labs: Hemoglobin (g/dL) Date Value 05/31/2024 12.1 03/06/2014 14.0 Hematocrit (%) Date Value 05/31/2024 34.8 03/06/2014 42.2 WBC (k/uL) Date Value 05/31/2024 4.57 03/06/2014 7.54 Glucose (mg/dL) Date Value 05/31/2024 110 10/17/2016 90 Potassium (mmol/L) Date Value 05/31/2024 4.9 10/17/2016 4.6 Sodium (mmol/L) Date Value 05/31/2024 131 10/17/2016 144 Chloride (mmol/L) Date Value 05/31/2024 96 10/17/2016 101 CO2 (mmol/L) Date Value 05/31/2024 27 10/17/2016 23 Creatinine (mg/dL) Date Value 05/31/2024 1.30 10/17/2016 1.02 BUN (mg/dL) Date Value 05/31/2024 27 10/17/2016 18 Anion Gap (mmol/L) Date Value 05/31/2024 8 10/17/2016 20 Calcium (mg/dL) Date Value 10/17/2016 9.5 Calcium, Total (mg/dL) Date Value 05/31/2024 8.6 Albumin (g/dL) Date Value 05/31/2024 3.0 (L) Bilirubin, Total (mg/dL) Date Value 05/31/2024 1.0 Bilirubin, Direct (mg/dL) Date Value 04/29/2024 0.6 (H) Alkaline Phosphatase (U/L) Date Value 05/31/2024 125 (H) AST (U/L) Date Value 05/31/2024 53 (H) ALT (U/L) Date Value 05/31/2024 27 Protein, Total (g/dL) Date Value 05/31/2024 7.0 MELD 3.0: 15 at 05/31/2024 11:38 AM MELD-Na: 10 at 05/31/2024 11:38 AM Calculated from: Serum Creatinine: 1.3 mg/dL at 05/31/2024 11:38 AM Serum Sodium: 131 mmol/L at 05/31/2024 11:38 AM Total Bilirubin: 1 mg/dL at 05/31/2024 11:38 AM Serum Albumin: 3 g/dL at 05/31/2024 11:38 AM INR(ratio): 1.1 at 05/31/2024 11:38 AM Age at listing (hypothetical): 68 years Sex: Male at 05/31/2024 11:38 AM Assessment Loyd Blandon is a 69 year old male with PMH of 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 #Alcohol associated cirrhosis c/b ascites, HHT, HE and large non-bleeding Evs, MELD 3.0-15 #1.0 cm HCC in segment 7 with concern for thoracic sclerotic lesion -Ascites/HHT: -Given failure of Lasix and Torsemide to manage ascites, will do trial of Bumex 2 mg q12h -Trend CMP weekly -Continue Aldactone at 150 mg dosage (reduce from 200 mg daily) -Counseled on low Na diet (2 g diet) -Serial paracentesis/thoracentesis already ordered PRN #Hepatic encephalopathy - continue lactulose 10-15 cc daily (patient has 3-4 Bms with this) and rifaximin 550 mg PO BID #Esophageal varices (non-bleeding) -Will order repeat EGD now given need to discontinue NSBB in setting of recurrent AKIs (likely HRS-PERLITA on CKD physiology), as patient frequently has Cr elevation with uptitration of diuretics -Last EGD was in 02/2024 with large Evs noted, no banding done #HCC: -AFP trends have been normal -Patient has repeat 3 month surveillance MR scheduled for 08/15/2024, will re-present case to LTB after results are available -Thoracic spine lesion to be evaluated with possible biopsy pending IR evaluation. Reassuring that it has been chronic in nature and visualized as far back as Summer 2023. Return to office in 1 month. During this patient visit I have spent approximately 45 minutes out of 60 in counseling regarding test results and coordinating care. Dmitri Reyes MD July 25, 2024 1:05 PM documented in this encounter [facility] 07-15-2024 Telephone encounter Note Patient labs are uploaded into patient's chart for review. Scanned in under External Labs/Misc. Labs [facility] 07-15-2024 Miscellaneous Notes Patient labs are uploaded into patient's chart for review. Scanned in under External Labs/Misc. Labs documented in this encounter [facility] 07-11-2024 Telephone encounter Note Spoke with Loyd Blandon and his , advised that his case was discussed and declined at liver transplant selection committee on July 10, 2024. Next step is to follow up with hepatology and oncology teams. Yesica Bright RN [facility] 07-11-2024 Miscellaneous Notes Spoke with Loyd Blandon and his , advised that his case was discussed and declined at liver transplant selection committee on July 10, 2024. Next step is to follow up with hepatology and oncology teams. Yesica Bright RN documented in this encounter [facility] 07-08-[address] Reyes sent nurse the following msg: I reviewed this MRI-it is concerning for spinal metastatic disease. Unfortunately, we will have to close transplant evaluation and refer patient to radiation and medical oncology... I would recommend we go ahead and present this case and close. Patient and were contacted regarding the above and are aware of the plan to present to for an official OLT evaluation closure. is aware of the oncology referral submitted by Dr. Reyes. Appointment schedule reviewed. Yesica Bright RN [facility] 07-08-[address] Reyes sent nurse the following msg: I reviewed this MRI-it is concerning for spinal metastatic disease. Unfortunately, we will have to close transplant evaluation and refer patient to radiation and medical oncology... I would recommend we go ahead and present this case and close. Patient and were contacted regarding the above and are aware of the plan to present to for an official OLT evaluation closure. is aware of the oncology referral submitted by Dr. Reyes. Appointment schedule reviewed. Yesica Bright RN documented in this encounter [facility] 07-05-2024 History of Present illness Narrative Radiology Service Progress Note PATIENT NAME: Loyd Blandon DATE OF SERVICE: July 05, 2024 TIME: 6:13 PM PATIENT IDENTITY VERIFICATION COMPLETED USING TWO (2) IDENTIFIERS: Name and Date of confirmed by patient verbally and Name and Date of confirmed by identification band. FALL SCREENING: Has the patient had 2 falls in the last year or 1 fall with injury or currently using an Ambulatory Assistive Device (Walker, Cane, Wheelchair, Crutches, etc.)? Yes, Patient High Risk for Falls What interventions were put in place to prevent falls during this visit? Non-Skid Socks Used, Yellow Falls Risk Wristband Applied, Instructed Patient to Call for Help if Needed, Offered Assistance with Transfers/Clothing, and Increased Observations by Caregivers PATIENT GENDER DATA: Assigned male at PATIENT RELEVANT IMPLANT DATA REVIEWED: Yes PATIENT PRESENTS WITH AN IMPLANTABLE OR ATTACHED WATCHMAKER APPRENTICE: No RADIOLOGY DEPARTMENT: MR; Exam(s) Completed: Spine: Thoracic spine PERIPHERAL IV DATA: Not applicable SIGNED BY: Rajiv Blankenship RT MR July 05, 2024 6:13 PM documented in this encounter [facility] 07-05-2024 Note Name: Loyd powell Patient presents for a Paracentesis. Indication for Procedure: Ascites INFORMED CONSENT Loyd Blandon Medical Record: [id number] Procedure: Paracentesis with US marking The risks, benefits and anticipated outcomes of the procedure, the risks and benefits of the alternatives to the procedure and the roles and tasks of the personnel to be involved were discussed with the patient and the patient consents to the procedure and agrees to proceed. I verify that I personally verified or obtained Loyd Blandon's consent. Elsy Johnson APRN.CNP July 05, 2024 1:23 PM Dept of GASTROENTEROLOGY UN[employer]ERSAL [employer]OT[employer]OL / SAFETY CHECKLIST Procedure to be performed: Paracentesis with US marking Sign in Communication: Completed Time Out: Team Confirms the Correct Patient, Correct Procedure, Correct Site and Site Marking, Correct Position. Affirmation of Time Out: YES Sign Out Discussion: Completed Procedure performed by Elsy Johnson APRN.CNP Medication: 2% Lidocaine 10cc The patient was placed in the supine position. A pocket of fluid suitable for paracentesis was marked in the left abdomen under ultrasound guidance. The skin and subcutaneous tissue was anesthetized with local anesthetic. A 15 guage Richards Needle was inserted into the abdomen and 6.4 liters were removed. The fluid was sent to the lab for analysis. There were no immediate complications associated with the procedure. Elsy Johnson APRN.CNP [facility] 07-05-2024 Nurse Note THE FOLLOWING WAS EVALUATED Motivation To Learn: Eager Family/Significant Other Support: High - Very involved in pt care Cognitive Ability: Alert and oriented Patient Learns Best By: Verbal Instruction The Following Influencing Factors Were Barriers To This Education Session: None The Following Physical Limitations Were Barriers To This Education Session: None Instruction Provided To: Patient and family member Learning Topic: Procedure/Surgery: PARACENTESIS Patient Evaluation: Verbalizes understanding Follow Up Plan: Follow up as needed 6.4 liters of ascites fluid was removed via paracentesis. Orders received from [facility] for IV placement and albumin infusion. A #22 Gauge angio cath was placed in the Right AC. 50 grams of albumin was infused per protocol and the IV was discontinued post infusion. Raquel Rodrigues RN [facility] 07-05-2024 Nurse Note THE FOLLOWING WAS EVALUATED Motivation To Learn: Eager Family/Significant Other Support: High - Very involved in pt care Cognitive Ability: Alert and oriented Patient Learns Best By: Verbal Instruction The Following Influencing Factors Were Barriers To This Education Session: None The Following Physical Limitations Were Barriers To This Education Session: None Instruction Provided To: Patient and family member Learning Topic: Procedure/Surgery: PARACENTESIS Patient Evaluation: Verbalizes understanding Follow Up Plan: Follow up as needed 6.4 liters of ascites fluid was removed via paracentesis. Orders received from [facility] for IV placement and albumin infusion. A #22 Gauge angio cath was placed in the Right AC. 50 grams of albumin was infused per protocol and the IV was discontinued post infusion. Raquel Rodrigues RN documented in this encounter [facility] 07-05-2024 Nurse procedure note Albumin 4 [facility] 07-05-2024 Nurse procedure note Needle out; 6.4L out [facility] 07-05-2024 Miscellaneous Notes Albumin 4 Needle out; 6.4L out Albumin 3 Bottle 5; albumin 2 Albumin 1 Bottle 4 Bottle 3 Bottle 2 Needle in; bottle 1 documented in this encounter [facility] 07-05-2024 Nurse procedure note Albumin 3 [facility] 07-05-2024 Nurse procedure note Bottle 5; albumin 2 [facility] 07-05-2024 Nurse procedure note Albumin 1 [facility] 07-05-2024 Nurse procedure note Bottle 4 [facility] 07-05-2024 Nurse procedure note Bottle 3 [facility] 07-05-2024 Nurse procedure note Bottle 2 [facility] 07-05-2024 Nurse procedure note Needle in; bottle 1 [facility] 07-01-2024 Telephone encounter Note Call placed to clarify the need for an admission if PERLITA is noted on repeat CMP. Patient will have labs drawn 07/02/24 locally. All questions answered. Yesica Bright RN [facility] 07-01-2024 Miscellaneous Notes Call placed to clarify the need for an admission if PERLITA is noted on repeat CMP. Patient will have labs drawn 07/02/24 locally. All questions answered. Yseica Bright RN documented in this encounter [facility] 06-24-2024 Telephone encounter Note Recent lab results are scanned in under external labs/chemistry Jaron Chinchilla Application Support ll [facility] 06-24-2024 Miscellaneous Notes Recent lab results are scanned in under external labs/chemistry [employer] Ch[employer] ll documented in this encounter [facility] 06-19-2024 Evaluation note Diagnosis Onset Date Resolution Cirrhosis acute June 19 11:48am [facility] Work Phone: 1(954) 814-211803-05-2025 [facility]iology [facility] [place] [address] [place] [address] Ultrasound Report Signed Patient: Loyd Blandon MR#: [id number] : 1955 Acct:[id number] Age/Sex: 68 / M ADM Date: Loc: Room: Type: [facility] Attending Dr: Irena Johnson MD Ordering Provider: Irena Johnson MD Date of Service: 06/19/24 US/US paracentesis abd w/image: K30.31 Copies to: Irena Johnson MD~ ULTRASOUND-GUIDED PARACENTESIS CLINICAL DATA: Ascites The procedure was discussed with the patient and consent was obtained. Ultrasound survey of the abdomen and pelvis was performed and moderate amount of ascites was identified. The right lower quadrant was chosen as the site for aspiration. Following sterile preparation and local anesthesia with lidocaine, a 5 Eritrean centesis catheter was advanced into the peritoneal cavity. Approximately 4700 mL of ascites was drained. The catheter was removed. There were no immediate complications. US/US paracentesis abd w/image IMPRESSION: SUCCESSFUL ULTRASOUND-GUIDED PARACENTESIS. Impression dictated by: Morales Alvarez Jr., D.O.06/19/2024 3:34 PM Dictation Location: [place] [address] Tech: Blanca Nicolas Transcribed By: ROLAND 06/19/24 153 Dictated By: Morales Alvarez Jr, DO 06/19/24 1534 Signed By: 06/19/24 1534 [facility]03-05-2025 Telephone encounter Note* Telephone Encounter - Elaina Sotomayor HUC - 06/19/2024 8:23 AM EST Spoke with pt's Fabiana to schedule Thoracentesis 07/05/2024 @ 3:30 pm. [facility]03-05-2025 Miscellaneous Notes* Telephone Encounter - Elaina Sotomayor HUC - 06/19/2024 8:23 AM EST Spoke with pt's Fabiana to schedule Thoracentesis 07/05/2024 @ 3:30 pm. [facility] Telephone encounter Note * Telephone Encounter - Yesica Bright RN - 06/14/2024 2:10 PM EST Call placed to Loyd Blandon and his to review current MRI spine appointment on 07/05/24. Paln is to have the thoracentesis and paracentesis completed on 07/05/24 prior to MRI spine. Pulmonary team is working to schedule the thoracentesis. Will move current 07/04/24 paracentesis to 07/04/24 once the thoracentesis is scheduled. states her local paracentesis location does not have openings, so I advised her to take him tot emergency room locally or to bring him to [facility] Main ER. She was also instructed to call 911 if he experience difficulty breathing. All questions answered. Yseica Bright RN [facility]02-28-2025 Miscellaneous Notes* Telephone Encounter - Yesica Bright RN - 06/14/2024 2:10 PM EST Call placed to Loyd Blandon and his to review current MRI spine appointment on 07/05/24. Paln is to have the thoracentesis and paracentesis completed on 07/05/24 prior to MRI spine. Pulmonary team is working to schedule the thoracentesis. Will move current 07/04/24 paracentesis to 07/04/24 once the thoracentesis is scheduled. states her local paracentesis location does not have openings, so I advised her to take him tot emergency room locally or to bring him to [facility] Main ER. She was also instructed to call 911 if he experience difficulty breathing. All questions answered. Yesica Bright RN [facility] Telephone encounter Note * Telephone Encounter - Abner Shankar - 06/10/2024 9:[address] Seals, Please see the below [facility] message and contact patient to advise within 72 hours. Abner Pacheco I scheduled Bill's 2nd shot for today at [facility]. Specifically the [employer] brand and [facility] just called stating [employer] would not approve that brand. [facility] thought maybe if you requested approval from [employer] directly it may be approved. It is $190 which is not something we want to pay. He will be getting his RSV today. [facility]02-24-2025 Miscellaneous Notes* Telephone Encounter - Abner Shankar - 06/10/2024 9:[address] Seals, Please see the below [facility] message and contact patient to advise within 72 hours. Abner Pacheco I scheduled Bill's 2nd shot for today at [facility]. Specifically the [employer] brand and [facility] just called stating [employer] would not approve that brand. [facility] thought maybe if you requested approval from [employer] directly it may be approved. It is $190 which is not something we want to pay. He will be getting his RSV today. [facility] History of Present illness Narrative* Brad Reeves RT(R) - 06/08/2024 1:40 PM EST Radiology Service Progress Note PATIENT NAME: Loyd Blandon DATE OF SERVICE: June 08, 2024 TIME: 2:10 PM PATIENT IDENTITY VERIFICATION COMPLETED USING TWO (2) IDENTIFIERS: Name and Date of confirmedby patient verbally and Name and Date of confirmed by identification band. FALL SCREENING: Has the patient had 2 falls in the last year or 1 fall with injury or currently using an Ambulatory Assistive Device (Walker, Cane, Wheelchair, Crutches, etc.)? Yes, Patient High Riskfor Falls What interventions were put in place to prevent falls during this visit? Increased Observations by Caregivers PATIENT GENDER DATA: Assigned male at PATIENT RELEVANT IMPLANT DATA REVIEWED: Yes PATIENT PRESENTS WITH AN IMPLANTABLE OR ATTACHED WATCHMAKER APPRENTICE: No RADIOLOGY DEPARTMENT: MR; Exam(s) Completed: Spine: Cervical spine, Thoracic spine, and Lumbar spine PERIPHERAL IV DATA: Site assessment: Clean,Dry and Intact, Site disposition Discontinued SIGNED BY: RT Gniger(R) June 08, 2024 2:10 PM [facility] History of Present illness Narrative* Akua King RN - 06/08/2024 1:00 PM EST Radiology Service Progress Note DATE OF SERVICE: June 08, 2024 TIME: 12:17 PM PATIENT WEIGHT: 165LBS PATIENT IDENTITY VERIFICATION COMPLETED USING TWO (2) STANDARD IDENTIFIERS: Name and Date of confirmed by patient verbally and Name and Date of confirmed by identification band. FALL SCREENING: Has the patient had 2 falls in the last year or 1 fall with injury or currently using an Ambulatory Assistive Device (Walker, Cane, Wheelchair, Crutches, etc.)? Yes, Patient High Riskfor Falls What interventions were put in place to prevent falls during this visit? Yellow Falls Risk Wristband Applied, Instructed Patient to Call for Help if Needed, Offered Assistance with Transfers/Clothing, Instructed Patient to Remain Seated (Not on Exam Table) Until Exam, and Increased Observations by Caregivers PATIENT GENDER DATA: Assigned male at ALLERGIES: Reviewed and unchanged CONTRAST ALLERGY: No EXAM: MRI - CONTRAST TYPE: GROUP II IV SITE: Ambulatory: A peripheral IV was started in the Left antecubital site with a Angio cath: 20gauge. IV SITE APPEARANCE: Clean,Dry and Intact SIGNATURE: Akua King RN PATIENT NAME: Loyd Blandon DATE: June 08, 2024 TIME: 12:17 PM [facility] Telephone encounter Note * Telephone Encounter - Yesica Bright RN - 06/06/2024 12:45 PM EST CARDIAC SUBCOMMITTEE FOR LIVER TRANSPLANT PATIENTS Date: 06/06/24 Summary: This a 68 year old male with alcohol related cirrhosis with pHTN including ascites, H, large EV, inaddition to Recinos's esophagus, GERD, HLD, HTN, gout, osteoporosis, History of remote smoking. Thefollowing were reviewed: ECHO 05/01/24, and LHC 05/31/24. The committee concluded the ECHO is WNL, LHC does not reveal significant CAD. No interventions required. Acceptable cardiac risk to proceed with liver transplantation. Attendees: Kalyn George, RN, BSN MD Lovely Varela Vaidehi, MD Annick Haouzi-Judenherc, MD Amy McFarlin, RN, BSN MD Ceci Dale, RN, MSN Gatito Blanchard, RN, BSN MD Yesica Lentz, LEO, BSN MD Colton Steen MD Siuba, Matthew, MD [facility]02-20-2025 Miscellaneous Notes* Telephone Encounter - Yesica Bright RN - 06/06/2024 12:45 PM EST CARDIAC SUBCOMMITTEE FOR LIVER TRANSPLANT PATIENTS Date: 06/06/24 Summary: This a 68 year old male with alcohol related cirrhosis with pHTN including ascites, H, large EV, inaddition to Recinos's esophagus, GERD, HLD, HTN, gout, osteoporosis, History of remote smoking. Thefollowing were reviewed: ECHO 05/01/24, and LHC 05/31/24. The committee concluded the ECHO is WNL, LHC does not reveal significant CAD. No interventions required. Acceptable cardiac risk to proceed with liver transplantation. Attendees: Kalyn George, RN, BSN MD Lovely Varela Vaidehi, MD Annick Haouzi-Judenherc, MD Amy McFarlin, RN, BSN MD Ceci Dale, LEO, MSN Gatito Blanchard, RN, BSN MD Yesica Lentz RN, BSN MD Colton Steen MD Siuba, Matthew, MD documented in this encounterMer[facility]02[facility]14-[facility] Nurse Note* Mis Hong RN - 05/31/2024 10:04 AM EST AMBULATORY PATIENT EDUCATION NOTE TOPIC: GI PROCEDURES: Paracentesis READINESS TO LEARN INSTRUCTION PROVIDED TO: Patient, readness to learn accessed prior to procedure and Patient and family member COGNITIVE ABILITY: Alert and oriented PTED MOTIVATION TO LEARN: Eager Interested FAMILY SUPPORT: High - Very involved in pt care IPATIENT LEARNS BEST BY: Individual Instruction Verbal Instruction FACTORS AFFECTING LEARNING: None PHYSICAL [...] MATERIAL: Procedure Discharge Instructions REFERRAL (RECOMMENDATION): None [facility]02-14-2025 Nurse Note* Mis Hong RN - 05/31/2024 10:04 AM EST AMBULATORY PATIENT EDUCATION NOTE TOPIC: GI PROCEDURES: Paracentesis READINESS TO LEARN INSTRUCTION PROVIDED TO: Patient, readness to learn accessed prior to procedure and Patient and family member COGNITIVE ABILITY: Alert and oriented PTED MOTIVATION TO LEARN: Eager Interested FAMILY SUPPORT: High - Very involved in pt care IPATIENT LEARNS BEST BY: Individual Instruction Verbal Instruction FACTORS AFFECTING LEARNING: None PHYSICAL [...] MATERIAL: Procedure Discharge Instructions REFERRAL (RECOMMENDATION): None * Mis Hong RN - 05/31/2024 8:46 AM EST PRE OP LEARNING ASSESSMENT PROCEDURE/SURGERY: paracentesis READINESS TO LEARN COGNITIVE ABILITY: Alert and oriented MOTIVATION TO LEARN: Eager Interested FAMILY SUPPORT: Unable to assess - Family not present PATIENT LEARNS BEST BY: Individual Instruction Verbal Instruction FACTORS AFFECTING LEARNING: None PHYSICAL LIMITATIONS AFFECTING LEARNING: None Electronically Signed By: Mis Hong RN In Department: GASTROENTEROLOGY documented in this encounterMer[facility]02-14-[facility]25 Nurse procedure note* Sedation Documentation - Mis Hong RN - 05/31/2024 9:54 AM EST Bottle 3 [facility]02-14-2025 Miscellaneous Notes* Sedation Documentation - Mis Hong RN - 05/31/2024 9:54 AM EST Bottle 3 * Sedation Documentation - Mis Hong RN - 05/31/2024 9:36 AM EST Bottle 2 documented in this encounterMercer [facility]02-14-2025 Nurse procedure note* Sedation Documentation - Mis Hong RN - 05/31/2024 9:36 AM EST Bottle 2 [facility]02-14-2025 Nurse Note* Mis Hong RN - 05/31/2024 8:46 AM EST PRE OP LEARNING ASSESSMENT PROCEDURE/SURGERY: paracentesis READINESS TO LEARN COGNITIVE ABILITY: Alert and oriented MOTIVATION TO LEARN: Eager Interested FAMILY SUPPORT: Unable to assess - Family not present PATIENT LEARNS BEST BY: Individual Instruction Verbal Instruction FACTORS AFFECTING LEARNING: None PHYSICAL LIMITATIONS AFFECTING LEARNING: None Electronically Signed By: Mis Hong RN In Department: GASTROENTEROLOGY [facility]02-14-2025 History of Present illness Narrative* Dada Hoffman RRT - 05/31/2024 8:19 AM EST PULM FUNCTION: Provider: Cheri Guido MD Spirometry: 1 DLCO: 1 documented in this encounterMercer County Community Hospital02-13-2025 Telephone encounter Note * Telephone Encounter - Pema Carranza RN - 05/30/2024 2:13 PM EST CARDIOVASCULAR LAB INSTRUCTIONS: Readiness to Learn: Cognitive Ability: Alert and oriented Motivation To Learn: Interested Family/Significant Other Support: Unable to assess - Family not present Instruction Provided To: Patient Patient Learns Best By: Individual Instruction Factors Affecting Learning: None Physical Limitations Affecting Learning: None Learning Response: Procedure: Left Heart Diagnostic Pre procedure education topics: Arrival time/NPO Status/Medications/Travel Instructions/Restrictions Patient/Family Response Evaluation: Verbalizes understanding- instructed to be accompanied by adultdriver at discharge. Follow Up Plan and Medication: As directed by physician Instruction/Supplemental Material Given: Cardiac catheterization instructions, procedure information, hospital information, hotel information. Instructed By Pema Carranza RN, RN. In Department of CARDIOLOGY. [facility]02-13-2025 Miscellaneous Notes* Telephone Encounter - Pema Carranza RN - 05/30/2024 2:13 PM EST CARDIOVASCULAR LAB INSTRUCTIONS: Readiness to Learn: Cognitive Ability: Alert and oriented Motivation To Learn: Interested Family/Significant Other Support: Unable to assess - Family not present Instruction Provided To: Patient Patient Learns Best By: Individual Instruction Factors Affecting Learning: None Physical Limitations Affecting Learning: None Learning Response: Procedure: Left Heart Diagnostic Pre procedure education topics: Arrival time/NPO Status/Medications/Travel Instructions/Restrictions Patient/Family Response Evaluation: Verbalizes understanding- instructed to be accompanied by adultdriver at discharge. Follow Up Plan and Medication: As directed by physician Instruction/Supplemental Material Given: Cardiac catheterization instructions, procedure information, hospital information, hotel information. Instructed By Pema Carranza RN, RN. In Department of CARDIOLOGY. documented in this encounterMercer County Community Hospital02-13-2025 Telephone encounter Note * Telephone Encounter - Yesica Bright RN - 05/30/2024 12:14 PM EST Call placed per Dr. Reyes's request to get additional information on his groin area, and pt report that the he bulge is located on the right side of his pubic area, tender if pushed, soft and squishy. The above information was relayed to Dr. Reyes. Yesica Bright RN' [facility]02-13-2025 Miscellaneous Notes* Telephone Encounter - Yesica Bright RN - 05/30/2024 12:14 PM EST Call placed per Dr. Reyes's request to get additional information on his groin area, and pt report that the he bulge is located on the right side of his pubic area, tender if pushed, soft and squishy. The above information was relayed to Dr. Reyes. Yesica Bright RN' documented in this encounter[address]12-2025 Telephone encounter Note * Telephone Encounter - Marlee Odell - 05/29/2024 10:33 AM EST Sent urgent request to the scheduling pool. [address]12-2025 Miscellaneous Notes* Telephone Encounter - Marlee Odell - 05/29/2024 10:33 AM EST Sent urgent request to the scheduling pool. documented in this encounterMercer County [facility] Hospital02-06-2025 Instructions* Patient Instructions* Brisa Bull MD - 05/23/2024 12:29 PM EST You were seen today for your shortness of breath and right sided pleural effusion (fluid). I will reach out to Dr. Rosales regarding repeating a paracentesis and thoracentesis prior to your [facility] on 05/31. We will have you repeat your pulmonary function tests immediately after your thoracentesis. Please follow up as needed. documented in this encounterMercer County Community Hospital02-06-2025 History of Present illness Narrative* Cheri Guido MD - 05/23/2024 11:30 AM EST Images from the original note were not included. Mr. Blandon is a 68 year old male who presents to the [facility] [place]. Consultation requested by Dr. Dmitri Reyes for an opinion regarding shortness of breath. My final recommendations/evaluation will be communicated back to the requesting physician by way of shared medical record or letter via US mail. HPI: 68 year old male with PMHx of Etoh-cirrhosis diagnosed in 2022, pHTN, ascites, HHT, HE, large EV, Recinos's esophagus, GERD, prior cholecystectomy, s/p BCC 2016 referred to pulmonary clinic for shortness of breath in the setting of hepatic hydrothorax. Patient is currently undergoing liver transplant work up. Initial symptoms started February 2023 with brain fog and confusion. Liver workup was initiated outpatient with findings of mildly positive smooth muscle antibody, otherwise all other serologies werenegative. CT a/p with an arterial enhancing 2cm lesion in hepatic dome that was followed with an MRI in 2023 for which this lesion was not seen - however, arterial timing and visualization of liver were significantly compromised on this scan. Currently undergoing paracentesis every 3-4 weeks with the last one on 05/01/24. Has had a total of 3 right-sided thoracentesis with the last one on 05/01/24 (2520 mL removed, transudate). CT chest was completed on 04/29/24 showing a large low-density right pleural effusion with complete collapse of RLL and RML, indeterminate 2 mm LOIS nodule. Currently saturating 100% on room air. Able to speak in full sentences, in no distress. Does feel SOB after climbing a flight of stairs and takes some time to recover. Has not been on supplemental oxygen. Does have an extensive previous smoking history, however quit 35 years ago (started at age 15 and smoked approximately 2ppd). Respiratory ROS: QUESADA: not at rest, only with exertion Pedal Edema: trace pedal edema bilaterally Cough: no Nocturnal awakenings: no Sputum: no GERD: yes TENA: no PSG Home O2: no Review of Systems: GEN: No fevers/chills, night sweats, or weight changes HENT: No rhinorrhea, pharyngitis, sinus drainage, congestion, or oral ulcers EYES: No sudden vision changes CV: No chest pain, palpitations RESP: As above GI: No nausea/vomiting/constipation/diarrhea, + acid reflux : No dysuria, no hematuria MSK: No joint swelling NEURO: No sudden weakness or numbness SKIN: No rash PSYCH: No hallucinations Past Medical History: PAST MEDICAL HISTORY Diagnosis Date Recinos's esophagus GERD (gastroesophageal reflux disease) Gout HTN (hypertension) Hx of colonic polyps Hyperlipidemia Liver cirrhosis (HCC) Liver disease Osteoporosis Umbilical hernia Past Surgical History: PAST SURGICAL HISTORY Procedure Laterality Date CHOLECYSTECTOMY 04/17/2011 COLONOSCOPY every 3 years EGD every 3 years ELBOW SURGERY HX Right screw insertion Work and Social Histories: Social History Tobacco Use Smoking status: Former Current packs/day: 0.00 Average packs/day: 1 pack/day for 20.0 years (20.0 ttl pk-yrs) Types: Cigarettes Start date: 02/18/1971 Quit date: 02/18/1991 Years since quittin.2 Vaping Use Vaping status: Never Used Substance Use Topics Alcohol use: Not Currently Drug use: No Family History: FAMILY HISTORY Problem Relation Age of Onset COPD Mother Coronary Artery Disease Mother Hypertension Mother Emphysema Mother Coronary Artery Disease Father Hypertension Father Heart Failure Father None Sister Allergies: Patient has no known allergies. Outpatient Medications: spironolactone (ALDACTONE) 100 mg tablet Take 1.5 tablets by mouth once daily. carvedilol (COREG) 3.125 mg tablet Take 3.125 mg by mouth two times a day with meals. lactulose 10 gram/15 mL solution Take 10 g by mouth once daily. Magnesium Oxide 500 mg cap Take 500 mg by mouth once daily. rifAXIMin (XIFAXAN) 550 mg tablet Take 550 mg by mouth two times a day. lansoprazole (PREVACID) 30 mg capsule Take 1 capsule by mouth once daily. torsemide (DEMADEX) 20 mg tablet Take 3 tablets by mouth once daily. multivitamin tablet Take 1 tablet by mouth once daily. CALCIUM CARB/VIT D3/MINERALS (CALCIUM CARBONATE-VIT D3-MIN) 1,200 mgcalcium - 1,000 unit chew Take 2tablets by mouth once daily. Pain today: Mr. Blandon is not having pain related to the reason for this visit. PHYSICAL EXAM: General appearance: NAD Mental status: alert, oriented x 3 Constitutional: well dressed, well groomed Skin: No bruising on exposed skin Eyes: PERRL ENT : No nasal congestion present Chest: Decreased breath sounds on R, normal breath sounds on L Abdomen: soft, distended, umbilical hernia present Extremities: trace lower extremity edema bilaterally Neuro: no focal deficits Labs / Imaging / Diagnostic Studies: All radiography listed below personally reviewed by me Data Reviewed from [facility] (in addition to that noted in HPI, and Past histories above): CMP, CBC Hemoglobin 11.5 04/29/2024 PFT: 04/29/24 CT Chest: 04/29/24 1. Large low-density right pleural effusion with complete collapse of the right lower lobe and right middle lobe. 2. Indeterminate 2 mm left upper lobe nodule. Attention on follow-up exam is recommended based on tumor biology of the reported liver lesion. 3. No thoracic lymphadenopathy. 4. Sclerotic lesion in T10 is suspicious for neoplastic etiology. Echo: 05/01/24 - The left ventricle is normal in size. There is mild upper septal left ventricular hypertrophy. Left ventricular systolic function is normal. EF = 69 5% (2D biplane) - The right ventricle is normal in size. Right ventricular systolic function is normal. - The visualized aorta is borderline dilated with a maximal dimension of 3.9 cm. - There is a large pleural effusion. Assessment: Mr. Blandon is a 68 year old male who presents to the [facility] [place] for evaluation of shortness of breath, currently undergoing liver transplant work up. Patient has PMH of Etoh-cirrhosis diagnosed in 2022, pHTN, ascites, HHT, HE, large EV, Recinos's esophagus, GERD, prior ch olecystectomy, s/p BCC 2016. Currently undergoes paracentesis every 3-4 weeks and has had a total of 3 thoracentesis. Last paracentesis and thoracentesis on 05/01/24. Thoracentesis with 2520 mL removed, transudate. Spirometry today showed no obstruction with evidence of restriction in the setting ofa large right pleural effusion. Most recent CT chest imaging on 04/29/24 with a large low- density right pleural effusion with complete collapse of RLL and RML, indeterminate 2mm LOIS nodule with no thoracic adenopathy, and sclerotic lesion in T10 suspicious for neoplastic etiology. Shortness of breath is likely 2/2 to large R pleural effusion. States that his breathing is better after the fluid is removed but starts to feel dyspneic shortly after removal (most likely due to rapid accumulation). Plan: -Plan for thoracentesis as needed while finishing liver transplant work up -Would plan for paracentesis and thoracentesis prior to LHC on 05/31 (will try to schedule both on 05/30) -Repeat spirometry directly after thoracentesis, included DLCO -ECHO did not comment on RSVP, however RV is normal in size and RV systolic function is normal, no need for RHC Discussed with Dr. Guido who agrees with above. Brisa Bull MD Pulmonary and Critical Care Fellow Attending note: Patient seen and examined. David aspects of physical exam, review of lab and imaging studies as well as clinical assessment performed by me. Agree with assessment and plan as detailed in Dr Bull's note. 68 y/o M with h/o alcoholic cirrhosis c/b portal hypertension, ascites, hepatic hydrothorax being evaluated for shortness of breath. CXR shows moderate to large right sided pleural effusion. Will plan for thoracentesis for next week Agree with plan for liver transplant work up Cheri Guido MD documented in this encounterMercer County [facility]02-06-2025 History of Present illness Narrative* Toshia Keita RRT - 05/23/2024 10:41 AM EST PULM FUNCTION: Provider: Brisa Bull MD Spirometry: 1 System: MC2 - [id number] documented in this encounterMercer County Community Hospital02-06-2025 History of Present illness Narrative* Courtney Mendoza RT(R) - 05/23/2024 10:40 AM EST Radiology Service Progress Note PATIENT NAME: Loyd Blandon DATE OF SERVICE: May 23, 2024 TIME: 10:30 AM PATIENT IDENTITY VERIFICATION COMPLETED USING TWO (2) IDENTIFIERS: Name and Date of confirmedby patient verbally. FALL SCREENING: Has the patient had 2 falls in the last year or 1 fall with injury or currently using an Ambulatory Assistive Device (Walker, Cane, Wheelchair, Crutches, etc.)? No PATIENT GENDER DATA: Assigned male at PATIENT RELEVANT IMPLANT DATA REVIEWED: Not Applicable PATIENT PRESENTS WITH AN IMPLANTABLE OR ATTACHED WATCHMAKER APPRENTICE: No RADIOLOGY DEPARTMENT: General X-ray: Exam(s) Completed: Chest X-Ray PERIPHERAL IV DATA: Not applicable SIGNED BY: RT Noris(R) May 23, 2024 10:30 AM documented in this encounterMercer County Community Hospital02-05-2025 Telephone encounter Note * Telephone Encounter - Patsy Begum - 05/22/2024 9:00 AM EST Admin responded to pt MC message regarding lab appt. Patsy Begum May 22, 2024 9:02 AM [facility]02-05-2025 Miscellaneous Notes* Telephone Encounter - Patsy Begum - 05/22/2024 9:00 AM EST Admin responded to pt message regarding lab appt. Patsy Begum May 22, 2024 9:02 AM documented in this encounterMercer County Community Hospital01-31-2025 Telephone encounter Note * Telephone Encounter - Yesica Bright RN - 05/17/2024 4:01 PM EST Loyd Blandon's contacted to provide the Tumor Board Recommendation below: - MRI spine or Bone scan scan to evaluate bony lesion in the spine - Repeat liver imaging in 3 months Will arrange once the orders are in the system. Repeat local CMP, CBC were completed on 05/09/24 and are now viewable in the scanned section of [facility](hepatology is aware). Yesica Bright RN [facility]01-31-2025 Miscellaneous Notes* Telephone Encounter - Yesica Bright RN - 05/17/2024 4:01 PM EST Loyd Traore Jamia's contacted to provide the Tumor Board Recommendation below: - MRI spine or Bone scan scan to evaluate bony lesion in the spine - Repeat liver imaging in 3 months Will arrange once the orders are in the system. Repeat local CMP, CBC were completed on 05/09/24 and are now viewable in the scanned section of [facility](hepatology is aware). Yesica Bright RN documented in this encounterMercer County Community Hospital01-24-2025 Telephone encounter Note * Telephone Encounter - ShyPatsy - 05/10/2024 11:37 AM EST Admin received outside lab results for pt. Uploaded into [employer] for review. Patsy Shy May 10, 2024 11:37 AM [facility]01-24-2025 Miscellaneous Notes* Telephone Encounter - ShyPatsy - 05/10/2024 11:37 AM EST Admin received outside lab results for pt. Uploaded into [employer] for review. Patsy Begum May 10, 2024 11:37 AM documented in this encounterMercer County Community Hospital01-24-2025 Telephone encounter Note * Telephone Encounter - Brittaney Mueller - 05/10/2024 9:17 AM EST External chem labs received and scanned. [facility]01-24-2025 Miscellaneous Notes* Telephone Encounter - Brittaney Mueller - 05/10/2024 9:17 AM EST External chem labs received and scanned. documented in this encounterMercer County Community Hospital01-22-2025 History of Present illness Narrative* Hal Weir MD - 05/08/2024 12:41 PM EST Images from the original note were not included. LIVER TRANSPLANT EVALUATION Patient Name: Loyd Blandon Date of Service: May 08, 2024 Liver disease secondary to: MELD 3.0: 13 at 04/29/2024 8:17 AM MELD-Na: 9 at 04/29/2024 8:17 AM Calculated from: Serum Creatinine: 1.13 mg/dL at 04/29/2024 8:17 AM Serum Sodium: 134 mmol/L at 04/29/2024 8:17 AM Total Bilirubin: 1.3 mg/dL at 04/29/2024 8:17 AM Serum Albumin: 3.0 g/dL at 04/29/2024 8:17 AM INR(ratio): 1.1 at 04/29/2024 8:17 AM Age at listing (hypothetical): 68 years Sex: Male at 04/29/2024 8:17 AM Body mass index is 26.06 kg/m . HPI: Patient is a 68-year-old male with a history of alcohol-related cirrhosis, portal hypertension, ascites, hepatic hydrothorax, and hepatic encephalopathy, presenting for liver transplant evaluation. - Last consumed alcohol on October 11 of last year. - CT liver showed massive ascites and a 1 cm lesion in segment 8, LR 5. - Requires thoracentesis and paracentesis every 3-4 weeks. Taking Lasix and spironolactone; adjustments made to diuretics yesterday by Dr. Saavedra. - Reports brain fog that started a year ago in February. - Using a wheelchair for long distances due to dyspnea; unable to do stairs or long walks. PAST MEDICAL HISTORY Diagnosis Date Recinos's esophagus GERD (gastroesophageal reflux disease) Gout HTN (hypertension) Hx of colonic polyps Hyperlipidemia Liver cirrhosis (HCC) Liver disease Osteoporosis Umbilical hernia PAST SURGICAL HISTORY Procedure Laterality Date CHOLECYSTECTOMY 04/17/2011 COLONOSCOPY every 3 years EGD every 3 years ELBOW SURGERY HX Right screw insertion FAMILY HISTORY Problem Relation Age of Onset COPD Mother Coronary Artery Disease Mother Hypertension Mother Emphysema Mother Coronary Artery Disease Father Hypertension Father Heart Failure Father None Sister Employer And Job Title: None on file Years Of Education Completed: Not specified Marital Status: Social History Tobacco Use Smoking status: Former Current packs/day: 0.00 Average packs/day: 1 pack/day for 20.0 years (20.0 ttl pk-yrs) Types: Cigarettes Start date: 02/18/1971 Quit date: 02/18/1991 Years since quittin.2 Vaping Use Vaping status: Never Used Substance Use Topics Alcohol use: Not Currently Drug use: No ALLERGIES No Known Allergies Current Outpatient Medications Medication Sig spironolactone (ALDACTONE) 100 mg tablet Take 1.5 tablets by mouth once daily. carvedilol (COREG) 3.125 mg tablet Take 3.125 mg by mouth two times a day with meals. lactulose 10 gram/15 mL solution Take 10 g by mouth once daily. Magnesium Oxide 500 mg cap Take 500 mg by mouth once daily. rifAXIMin (XIFAXAN) 550 mg tablet Take 550 mg by mouth two times a day. lansoprazole (PREVACID) 30 mg capsule Take 1 capsule by mouth once daily. torsemide (DEMADEX) 20 mg tablet Take 3 tablets by mouth once daily. multivitamin tablet Take 1 tablet by mouth once daily. CALCIUM CARB/VIT D3/MINERALS (CALCIUM CARBONATE-VIT D3-MIN) 1,200 mgcalcium - 1,000 unit chew Take 2tablets by mouth once daily. No current facility-administered medications for this visit. REVIEW OF SYSTEMS: Constitutional: (+) weight loss, (+) fatigue, (+) feeling cold all the time Cardiovascular: (-) chest pain, (-) palpitations Respiratory: (+) shortness of breath, (-) cough, (-) wheezing, (-) sputum production Gastrointestinal: (+) abdominal bloating, (+) decreased appetite, (+) diarrhea sometimes, (-) constipation, (-) nausea, (-) vomiting, (-) black stools Genitourinary: (+) decreased urine stream, (-) dysuria, (-) hematuria Musculoskeletal: (+) weakness, (+) muscle loss Neurological: (+) dizziness, (+) balance issues, (+) brain fog, (+) confusion Endocrine: (+) cold intolerance PHYSICAL EXAMINATION BP 106/70 Pulse 53 Temp 97.2 Resp 12 Ht 5' 9.488 (1.77m) Wt 179 lb (81.2kg) SpO2 98% BMI 26.06 kg/(m^2). General: Cachectic appearance. Abd: Protuberant abdomen. MSK/Ext: Mild lower extremity edema. LABORATORY RESULTS: CBC Recent Labs 04/29/24 0817 WBC 4.32 HB 11.5* HCT 34.3* PLT 148* CMP Recent Labs 04/29/24 0817 NA 134* K 4.3 CHLOR 99 CO2 24 CREAT 1.13 BUN 20 GLUC 98 CA 9.1 LFT Recent Labs 04/29/24 0817 TPROT 7.0 ALB 3.0* ALKPHOS 101 TBILI 1.3 AST 41* ALT 22 RADIOLOGICAL INVESTIGATIONS: Abd CT Scan: 04/29/24 MORPHOLOGIC FINDINGS OF CIRRHOSIS AND PORTAL HYPERTENSION. 1.0 CM LI-RADS 5/OPTN 5 LESION IN THE DOME OF SEGMENT VIII WITHOUT TUMOR THROMBUS. NO EVIDENCE OF METASTATIC DISEASE. MASSIVE ASCITES. MASSIVE RIGHT PLEURAL EFFUSION WITH AT LEAST SEGMENTAL RIGHT LUNG COLLAPSE. Cardiac Evaluation: 05/01/24 - Exam indication: Preop eval for noncard surg with intermediate risk and poor exercise tolerance - The left ventricle is normal in size. There is mild upper septal left ventricular hypertrophy. Left ventricular systolic function is normal. EF = 69 5% (2D biplane) - The right ventricle is normal in size. Right ventricular systolic function is normal. - The visualized aorta is borderline dilated with a maximal dimension of 3.9 cm. - There is a large pleural effusion. - The patient has not had a prior CC echocardiographic exam for comparison. ASSESSMENT: 1) Any sign/source of infection: No, Any positive culture: No 2) Any extra hepatic malignancy: No 3) Any major respiratory or cardiac co-morbidity (non hepatic related) precluding transplant:No 4) Any ongoing substance abuse: No 5) on any organ support: No 6) Any surgical risks: Previous surgery: Yes, cholecystectomy Any PV thrombus: No Any shunt: Yes, varix Any arterial pathology: No An overview of the transplant process was discussed with the patient. I reviewed types of organ donors, including standard and extended criteria donors; living donation was also discussed. Risks, benefits, and alternatives of liver transplant were reviewed with patient in detail, includingbut not limited to need for re-operation, primary non-function, bile leak, hepatic artery thrombosis, and . Short and fci outcomes data was discussed. I reviewed an expected standard post-operative recovery and early follow-up. Lastly, I discussed the need for immunosuppressive therapy associated with transplant. Loyd Blandon is a Good candidate for liver transplantation. Possible living donor: No DCD candidate: Yes, PLAN: - Continue transplant evaluation - Continue taking Rifaximin as prescribed. - Adjust Lactulose dosage to avoid constipation; use Miralax if needed. - Maintain a high-protein diet; consider protein shakes to prevent muscle loss. - Engage in daily exercise for 30 minutes to an hour, as tolerated, to improve fitness. - Practice deep breathing exercises to expand lung capacity. - Attend scheduled appointments: - Pulmonology and PFTs on May 23. - Cardiology on . - Echocardiogram tomorrow. - Scheduled for thoracentesis and paracentesis based on recent CT scan. - Monitor for symptoms such as fever, chills, or changes in urine color and report any concerns. Hal Weir MD May 08, 2024 12:45 PM documented [facility] Telephone encounter Note * Telephone Encounter - Yesica Bright RN - 05/07/2024 1:44 PM EST Follow up call placed to review OLT evaluation as well and Dr. Reyes's need for a repeat CMP after the administration of of the adjusted diuretic regimen. Will follow up with patient and his on 05/10/24 to review tumor board results. Yesica Bright RN [facility]01-21-2025 Miscellaneous Notes* Telephone Encounter - Yesica Bright RN - 05/07/2024 1:44 PM EST Follow up call placed to review OLT evaluation as well and Dr. Reyes's need for a repeat CMP after the administration of of the adjusted diuretic regimen. Will follow up with patient and his on 05/10/24 to review tumor board results. Yesica Bright RN documented in this encounterMer[facility]01-[facility]25 Instructions* Patient Instructions* Brisa Seals MD - 05/02/2024 3:21 PM EST Second heplisav vaccine dose as early as June 01. Please get this. Safe Living After Transplant Prevention of infections by direct contact: hand washing, avoid walking barefoot on the beach, use insect repellent in the summer, gloves for gardening, no piercings or tattoos. Prevention of respiratory illness: hand washing, avoid sick contacts, avoid smoke exposure. Avoid construction sites, birds, plant and soil, chicken coops, caves. No cleaning bird or cat litter. Water safety: treated well water, no hot tubs, no drinking water from lakes or swimming pools. Food safety: no soft cheeses, no unpasteurized cheeses, no raw eggs, no raw meat, or raw poultry. Peel fruits and vegetables, avoid food sitting outside refrigerator at room temperature for a long time. Animal: wash hands after contact, no contact with sick animals, don't pet stray animals, avoid bites or scratches & report immediately to medical care, no reptiles, rodents, kittens, chicks or ducklings, monkeys. No cleaning pets. Travel: evaluation by travel clinic if foreign travel considered. documented in [facility]01[facility] History of Present illness Narrative* Brisa Seals MD - 05/02/2024 3:00 PM EST Images from the original note were not included. INFECTIOUS DISEASE LIVER PRETRANSPLANT EVALUATION SERVICE DATE: 05/02/2024 Patient is seen at the request of Dr. Dmitri Reyes for my opinion regarding liver transplant evaluation My final recommendations will be communicated back to the requesting physician by way of sharedmedial record. HISTORY OF PRESENT ILLNESS: Mr.William León Blandon is a 68M with alcoholic cirrhosis diagnosed in 2022., pHTN, ascites, HHT, HE, large EV Also with Recinos's esophagus, GERD, cholecystectomy. Had paracentesis 05/01, no SBP. And thoracentesis. No ID issues. 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 no exposure to anyone who is homeless or in senior living. Significant other exposures: Smoking: prior Alcohol:none current Drugs: gummies, no smoking STIs: no Tattoos: one Raw meats: occasional raw burger Raw seafood: no Unpasteurized milks/cheeses: none Water supply: [facility] MEDICATIONS Current antibiotics: none Current immunomodulators: no No current facility-administered medications for this visit. PAST MEDICAL HISTORY Diagnosis Date Recinos's esophagus GERD (gastroesophageal reflux disease) Gout HTN (hypertension) Hx of colonic polyps Osteoporosis Umbilical hernia PAST SURGICAL HISTORY Procedure Laterality Date CHOLECYSTECTOMY 2011 COLONOSCOPY every 3 years EGD every 3 years Social History Tobacco Use Smoking status: Former Current packs/day: 0.00 Average packs/day: 1 pack/day for 20.0 years (20.0 ttl pk-yrs) Types: Cigarettes Start date: 02/18/1971 Quit date: 02/18/1991 Years since quittin.2 Vaping Use Vaping status: Never Used Substance Use Topics Alcohol use: Not Currently Alcohol/week: 10.0 standard drinks of alcohol Types: 10 Cans of Beer (12oz) per week Comment: 1-2 drinks nightly Drug use: No FAMILY HISTORY Problem Relation Age of Onset COPD Mother Coronary Artery Disease Mother Coronary Artery Disease Father Hypertension Mother Hypertension Father None Sister Allergies As of Date: 05/02/2024 (No Known Allergies) Fully Assessed 05/01/2024 Immunization History Administered Date(s) Administered COVID-19 original vaccine, full dose, monovalent (MODERNA) 05/27/2020 06/24/2020 influenza (HD-IIV3) vaccine, age 65+ yr, high dose, trivalent, PF (FLUZONE HIGH-DOSE) 02/17/2021 02/01/2022 03/04/2024 influenza (IIV3) vaccine, age 6 mo - 64 yr, trivalent (AFLURIA, FLULAVAL, FLUVIRIN, FLUZONE) 01/14/2014 02/10/2015 02/01/2016 influenza (IIV4) vaccine, age 6 mo - 64 yr, quadrivalent (AFLURIA, FLULAVAL, FLUZONE) 02/13/2017 influenza (IIV4) vaccine, age 6 mo - 64 yr, quadrivalent, PF (AFLURIA, FLUARIX, FLULAVAL, FLUZONE) 02/10/2019 influenza (IIV4) vaccine, quadrivalent (AFLURIA, FLULAVAL, FLUZONE) 01/17/2017 influenza (aIIV4) vaccine, age 65+ yr, quadrivalent, PF (FLUAD QUAD) 01/24/2023 influenza vaccine, unspecified formulation 01/23/2013 02/17/2021 02/01/2022 01/24/2023 pneumococcal conjugate (PCV20) vaccine, 20 valent (PREVNAR 20) 03/04/2024 tetanus diphtheria pertussis (Tdap) vaccine, age 7+ yr (ADACEL, BOOSTRIX) 03/22/2022 zoster (RZV) vaccine, recombinant (SHINGRIX) 04/30/2022 zoster (ZVL) vaccine, live (ZOSTAVAX) 03/24/2015 REVIEW OF SYSTEMS: All other systems reviewed (14 total) and all are negative, other than as noted above or in HPI. PHYSICAL EXAMINATION: There were no vitals taken for this visit. GENERAL Alert, oriented, no distress, sarcopenia HEENT no conjunctival lesions, no scleral icterus, OP benign NECK supple, no LAD CHEST diminished at right lower lung field HEART/CV regular rate and rhythm, no audible murmurs, rubs or gallops, no edema, good pulses ABDO + ascites, umbilical hernia, nontender EXTREM no deformities, warm to touch SKIN no lesions of significance NEURO Cranial nerves intact DATA: Diagnostic tests reviewed for today's visit: Labs, serologies, cultures, imaging LABS: Lab Results Component Value Date HB 11.5 04/29/2024 HB 14.0 03/06/2014 HCT 34.3 04/29/2024 HCT 42.2 03/06/2014 WBC 4.32 04/29/2024 WBC 7.54 03/06/2014 Lab Results Component Value Date PLT 148 04/29/2024 PLT 130 03/06/2014 NEUTP 65.3 04/29/2024 NEUTP 80.2 03/05/2014 ABSNEUT 2.82 04/29/2024 ABSNEUT 7.76 03/05/2014 LYMPHP 15.7 04/29/2024 LYMPHP 7.7 03/05/2014 ABSLYMPH 0.68 04/29/2024 ABSLYMPH 0.75 03/05/2014 ABSMONO 0.54 04/29/2024 ABSMONO 1.17 03/05/2014 EODINP 4.9 04/29/2024 EODINP 0.0 03/05/2014 ABSEOSIN 0.21 04/29/2024 ABSEOSIN 0.00 03/05/2014 BASOP 1.4 04/29/2024 BASOP 0.0 03/05/2014 ABSBASO 0.06 04/29/2024 ABSBASO 0.00 03/05/2014 Lab Results Component Value Date ALB 3.0 04/29/2024 ALB 4.1 10/17/2016 CA 9.1 04/29/2024 CA 9.5 10/17/2016 TBILI 1.3 04/29/2024 TBILI 0.3 10/17/2016 ALKPHOS 101 04/29/2024 ALKPHOS 54 10/17/2016 AST 41 04/29/2024 AST 43 10/17/2016 GLUC 98 04/29/2024 GLUC 90 10/17/2016 BUN 20 04/29/2024 BUN 18 10/17/2016 CREAT 1.13 04/29/2024 CREAT 1.02 10/17/2016 NA 134 04/29/2024 NA 144 10/17/2016 K 4.3 04/29/2024 K 4.6 10/17/2016 CHLOR 99 04/29/2024 CHLOR 101 10/17/2016 CO2 24 04/29/2024 CO2 23 10/17/2016 ANION 11 04/29/2024 ANION 20 10/17/2016 ALT 22 04/29/2024 ALT 38 10/17/2016 APTT 28.6 04/29/2024 INR 1.1 04/29/2024 MELD 3.0: 13 at 04/29/2024 8:17 AM MELD-Na: 9 at 04/29/2024 8:17 AM Calculated from: Serum Creatinine: 1.13 mg/dL at 04/29/2024 8:17 AM Serum Sodium: 134 mmol/L at 04/29/2024 8:17 AM Total Bilirubin: 1.3 mg/dL at 04/29/2024 8:17 AM Serum Albumin: 3.0 g/dL at 04/29/2024 8:17 AM INR(ratio): 1.1 at 04/29/2024 8:17 AM Age at listing (hypothetical): 68 years Sex: Male at 04/29/2024 8:17 AM 05/01: ascites: TNC 72, 2% segs Cultures: 05/01: ascites: neg to date Imagin/15: CXR Serology: Serology Positive for: EBV, measles, VZV Serology Negative for: TBQ (melo 1.33), syphilis, HIV, HBsAb, HBcAb, HBsAg, HCV, CMV Vaccinations Done: COVID x 2, flu, p20, shingrix x 2, tdap Not done/needed: covid?, heplisav, hepatitis A IMPRESSION 68M Alcoholic cirrhosis, ascites, right HHT, EV, HE, MELD 13, Had covid infection 2022 Recinos's esophagus, GERD Cholecystectomy CMV seronegative No ID related contraindication to liver transplant at this time. Needs a few vaccine updates. Recommendations/Plans: Heplisav #1 and hep A #1 today Second heplisav in 1 month, second hep A vaccine in 6 months Routine perioperative abx anticipated Discussed infection risk reduction strategies. SIGNATURE: Brisa Seals MD PATIENT NAME: Loyd Blandon DATE: May 02, 2024 TIME: 11:16 AM PAGER/CONTACT #: documented in this encounterMer[facility]01-[facility] History of Present illness Narrative* Jade Arora MD - 05/02/2024 12:30 PM EST Images from the original note were not included. [facility] [place] Claude Suárez Department of Cardiovascular Medicine SECTION OF CLINICAL CARDIOLOGY OUTPATIENT VISIT DATE May 02, 2024 OUTPATIENT VISIT TYPE CONSULTATION PRIMARY CARE PHYSICIAN: Not on file REFERRING PHYSICIAN Dmitri Reyes [id number] [facility] [id number] CHIEF COMPLAINT: Pre liver transplant HISTORY OF PRESENT ILLNESS: Cardiac consultation at the request of Dr. Dmitri Reyes.A copy of this consultation note will be provided to the requesting physician by way of shared Medical record or letter to requesting physicianvia US mail. Mr. Blandon is a 68 year old male from [place], [place], here today for cardiovascular evaluation related to liver transplant candidacy. He has a history of both hyperlipidemia and hypertension. Father has a history of heart failure. He has no current cardiac symptoms. Loyd has a significant medical history of HLD, HTN, GERD, gout, osteoporosis, liver cirrhosis/disease, ascites. History of remote smoking. He reports the following symptoms SOB, lightheadedness/dizziness, fatigue, weakness. He has had shortness of breath for about the past 2 months. He has had multiple paracenteses and thoracenteses. Recently tried to increase coreg to 6.25mg however his BP did not tolerate it and now remains on 3.125 BID PAST MEDICAL HISTORY Diagnosis Date Recinos's esophagus GERD (gastroesophageal reflux disease) Gout HTN (hypertension) Hx of colonic polyps Hyperlipidemia Liver cirrhosis (HCC) Liver disease Osteoporosis Umbilical hernia PAST SURGICAL HISTORY Procedure Laterality Date CHOLECYSTECTOMY 04/17/2011 COLONOSCOPY every 3 years EGD every 3 years ELBOW SURGERY HX Right screw insertion SOCIAL HISTORY Social History Tobacco Use Smoking status: Former Current packs/day: 0.00 Average packs/day: 1 pack/day for 20.0 years (20.0 ttl pk-yrs) Types: Cigarettes Start date: 02/18/1971 Quit date: 02/18/1991 Years since quittin.2 Vaping Use Vaping status: Never Used Substance Use Topics Alcohol use: Not Currently Drug use: No FAMILY HISTORY Problem Relation Age of Onset COPD Mother Coronary Artery Disease Mother Hypertension Mother Emphysema Mother Coronary Artery Disease Father Hypertension Father Heart Failure Father None Sister ALLERGIES: ALLERGIES No Known Allergies MEDICATIONS: carvedilol (COREG) 3.125 mg tablet Take 3.125 mg by mouth two times a day with meals. lactulose 10 gram/15 mL solution Take 10 g by mouth once daily. Magnesium Oxide 500 mg cap Take 500 mg by mouth once daily. rifAXIMin (XIFAXAN) 550 mg tablet Take 550 mg by mouth two times a day. spironolactone (ALDACTONE) 50 mg tablet Take 150 mg by mouth once daily. lansoprazole (PREVACID) 30 mg capsule Take 1 capsule by mouth once daily. torsemide (DEMADEX) 20 mg tablet Take 3 tablets by mouth once daily. spironolactone (ALDACTONE) 100 mg tablet Take 2 tablets by mouth once daily. multivitamin tablet Take 1 tablet by mouth once daily. CALCIUM CARB/VIT D3/MINERALS (CALCIUM CARBONATE-VIT D3-MIN) 1,200 mgcalcium - 1,000 unit chew Take 2tablets by mouth once daily. REVIEW OF SYSTEMS: GENERAL: Negative for: Weight loss or gain, Fever or Chills, Weakness and Sleep difficulties. HEENT: Negative for: Headache, Impaired Vision, Glasses, Hearing Impairment, Ringing in Ears, Nosebleeds, Poor dental care, Bleeding Gums, Dentures NECK: Negative for: Swelling, Pain, Stiffness RESPIRATORY: Negative for: Cough, Blood in Sputum, Shortness of breath, Wheezing, Apnea GASTROINTESTINAL: Negative for: Trouble swallowing, Heartburn, Change in bowel habits, Blood in stool, Dark black stools MUSCULOSKELETAL: Negative for: Muscle or joint pain, Stiffness , Joint swelling NEUROLOGIC/PSYCHIATRIC: Negative for: Weakness, Paralysis, Numbness, Tingling, Tremor, Nervousness,Depressed mood, Memory loss SKIN: Negative for: Rashes, Itching HEMATOLOGICAL/LYMPHATIC: Negative for: Easy bruising , Easy bleeding ENDOCRINE: Negative for: Heat or cold intolerance, Excessive sweating, Frequent urination, Frequentthirst PHYSICAL EXAMINATION: BP 108/64 (BP Site: Right Arm, BP Position: Sitting) Pulse (!) 52 Ht 176.5 cm (5' 9.5 ) Wt 79.8 kg (176 lb) SpO2 97% BMI 25.62 kg/m General: Well appearing, in no acute distress. Skin: No clubbing, no cyanosis. Eyes: Extra ocular movements intact Oropharynx: Teeth in good repair. Neck: No jugular venous distention, no carotid bruits, carotids have a normal upstroke, no palpablethyromegaly. Lungs: Clear to auscultation bilaterally, no wheezing or rhonchi. Heart: Regular rhythm, PMI not displaced, S1, S2 normal, no S3, no S4, no heaves, no rub and no murmur. Abdomen: Soft, nontender, bowel sounds normal, no palpable organomegaly, no bruits. +ascites , able to palpate liver edge Extremities: No peripheral edema . Grade 2/4 distal pulses bilaterally. Neuro: Oriented to person, place and time, alert, cooperative, gait coordinated. CARDIOVASCULAR MEDICINE TESTING: Electrocardiogram: Last ECHO Result Conclusion ECHO Collected: 05/01/2024 9:11 AM (Final result) Impression: CONCLUSIONS: - Exam indication: Preop eval for noncard surg with intermediate risk and poor exercise tolerance - The left ventricle is normal in size. There is mild upper septal left ventricular hypertrophy. Left ventricular systolic function is normal. EF = 69 5% (2D biplane) - The right ventricle is normal in size. Right ventricular systolic function is normal. - The visualized aorta is borderline dilated with a maximal dimension of 3.9 cm. - There is a large pleural effusion. - The patient has not had a prior CC echocardiographic exam for comparison. * * * Final * * * ECHO 05/01/24 CONCLUSIONS: - Exam indication: Preop eval for noncard surg with intermediate risk and poor exercise tolerance - The left ventricle is normal in size. There is mild upper septal left ventricular hypertrophy. Left ventricular systolic function is normal. EF = 69 5% (2D biplane) - The right ventricle is normal in size. Right ventricular systolic function is normal. - The visualized aorta is borderline dilated with a maximal dimension of 3.9 cm. - There is a large pleural effusion. - The patient has not had a prior CC echocardiographic exam for comparison. Last CT Result Conclusion CT CHEST W IVCON Exam End: 04/29/2024 5:02 PM (Final result) Impression: IMPRESSION: 1. Large low-density right pleural effusion with complete collapse of the right lower lobe and right middle lobe. 2. Indeterminate 2 mm left upper lobe nodule. Attention on follow-up exam is recommended based on tumor biology of the reported liver lesion. 3. No thoracic lymphadenopathy. 4. Sclerotic lesion in T10 is suspicious for neoplastic etiology. 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[facility] Transcribe Date/Time: Apr 30 2024 8:19A Dictated by : RADHA XIE MD This examination was interpreted and the report reviewed and electronically signed by: RADHA XIE MD on Apr 30 2024 9:03AM EST Heart, pericardium, and thoracic vessels: The aorta is normal in course and caliber. Atherosclerotic calcifications are seen in the aorta. The main pulmonary artery is normal in course and caliber. Scattered three-vessel atherosclerotic calcifications are seen in the coronary arteries although the exam is not optimized for evaluation of the coronary arteries. The cardiac chambers are normal in size. There is no pericardial effusion or pericardial thickening. I have personally reviewed the testing above. IMPRESSION: Mr. Blandon is a 68 year old male with alcohol related cirrhosis with pHTN including ascites, H, large EV, in addition to Recinos's esophagus, GERD, HLD, HTN, gout, osteoporosis, History of remote smoking. He does not have major valve disease, and has a normal EF. Would recommend pursuing LHC if he is deemed a candidate for liver transplant. Will await for tumor board to decide whether to proceed with transplant evaluation. I have tentatively placed the orders for a cath pending the decision to continue workup of liver trasnplantation PLAN AND RECOMMENDATIONS: I personally interviewed, confirmed and edited the above information as obtained by others. CONTACT INFORMATION: Jade Arora MD May 02, 2024 [id number] [place] [address] [place] Attestation: By signing my name below, Sanjay Damian, attest that this documentation has been prepared under the direction and in the presence of Jade Arora MD Electronically Signed:dylan Gallo, May 02, 2024 12:33 PM Provider Attestation: Jade Damian MD, personally performed the services described in this documentation. All medical record entries made by the rudiibleón were at my direction and in my presence. I have reviewed the chart and discharge instructions (if applicable) and agree that the record reflects my personal performance and is accurate and complete. Jade Arora MD May 03, 2024 1:51 PM documented in this encounterMer[facility] Nurse procedure note* Sedation Documentation - Jenn Corea RN - 05/01/2024 12:02 PM EST 5.3 liters of ascites fluid was removed via paracentesis. Orders received from Rosalinda Benoit CNP forIV placement and albumin infusion. A #22 Gauge angio cath was placed in the Right AC. 37.5 grams ofalbumin was infused per protocol and the IV was discontinued post infusion. THE FOLLOWING WAS EVALUATED Motivation To Learn: Interested Family/Significant Other Support: High - Very involved in pt care Cognitive Ability: Alert and oriented Patient Learns Best By: Verbal Instruction The Following Influencing Factors Were Barriers To This Education Session: None The Following Physical Limitations Were Barriers To This Education Session: None Instruction Provided To: Patient and family member Learning Topic: Procedure/Surgery: PARACENTESIS Patient Evaluation: Verbalizes understanding Follow Up Plan: Follow up as needed Jenn Corea RN [facility]01-15-20[facility] Miscellaneous Notes* Sedation Documentation - Jenn Corea RN - 05/01/2024 12:02 PM EST 5.3 liters of ascites fluid was removed via paracentesis. Orders received from Rosalinda Benoit CNP forIV placement and albumin infusion. A #22 Gauge angio cath was placed in the Right AC. 37.5 grams ofalbumin was infused per protocol and the IV was discontinued post infusion. THE FOLLOWING WAS EVALUATED Motivation To Learn: Interested Family/Significant Other Support: High - Very involved in pt care Cognitive Ability: Alert and oriented Patient Learns Best By: Verbal Instruction The Following Influencing Factors Were Barriers To This Education Session: None The Following Physical Limitations Were Barriers To This Education Session: None Instruction Provided To: Patient and family member Learning Topic: Procedure/Surgery: PARACENTESIS Patient Evaluation: Verbalizes understanding Follow Up Plan: Follow up as needed Jenn Corea RN * Sedation Documentation - Jenn Corea RN - 05/01/2024 11:45 AM EST Needle out. 5.3 L removed via paracentesis without incident. Pressure dressing applied to pt's leftabdomen accordingly. * Sedation Documentation - Jenn Corea RN - 05/01/2024 11:30 AM EST 1130: Albumin 1 1135: Albumin 2 1144: Albumin 3 * Sedation Documentation - Jenn Corea RN - 05/01/2024 11:29 AM EST #22 peripheral IV placed in pt's right AC for needed albumin infusion. Blood return present. * Sedation Documentation - Jenn Corea RN - 05/01/2024 10:46 AM EST 1045: Needle in. Bottle 1. 1050: Bottle 2. 1055: Bottle 3. 1105: Bottle 4. documented in this encounterMercer [facility]01-[facility]25 Nurse procedure note* Sedation Documentation - Jenn Corea RN - 05/01/2024 11:45 AM EST Needle out. 5.3 L removed via paracentesis without incident. Pressure dressing applied to pt's leftabdomen accordingly. [facility]01[facility] Nurse procedure note* Sedation Documentation - Jenn Corea RN - 05/01/2024 11:30 AM EST 1130: Albumin 1 1135: Albumin 2 1144: Albumin 3 [facility]01-[facility] Nurse procedure note* Sedation Documentation - Jenn Corea RN - 05/01/2024 11:29 AM EST #22 peripheral IV placed in pt's right AC for needed albumin infusion. Blood return present. [address]15-2025 Nurse procedure note* Sedation Documentation - Jenn Corea RN - 05/01/2024 10:46 AM EST 1045: Needle in. Bottle 1. 1050: Bottle 2. 1055: Bottle 3. 1105: Bottle 4. [facility] Nurse Note* Jenn Corea RN - 05/01/2024 10:23 AM EST PRE OP LEARNING ASSESSMENT PROCEDURE/SURGERY: GI PROCEDURES: Paracentesis READINESS TO LEARN COGNITIVE ABILITY: Alert and oriented MOTIVATION TO LEARN: Interested FAMILY SUPPORT: High - Very involved in pt care PATIENT LEARNS BEST BY: Individual Instruction FACTORS AFFECTING LEARNING: None PHYSICAL LIMITATIONS AFFECTING LEARNING: None Electronically Signed By: Jenn Corea RN In Department: [facility]Y [facility] [facility] Nurse Note* Jenn Corea RN - 05/01/2024 10:23 AM EST PRE OP LEARNING ASSESSMENT PROCEDURE/SURGERY: GI PROCEDURES: Paracentesis READINESS TO LEARN COGNITIVE ABILITY: Alert and oriented MOTIVATION TO LEARN: Interested FAMILY SUPPORT: High - Very involved in pt care PATIENT LEARNS BEST BY: Individual Instruction FACTORS AFFECTING LEARNING: None PHYSICAL LIMITATIONS AFFECTING LEARNING: None Electronically Signed By: Jenn Corea RN In Department: GASTROENTEROLOGY documented [facility] Consult note* Colton Laughlin MD - 05/01/2024 8:14 AM ESTAssociated Order(s): CONSULT TO ANESTHESIOLOGY INITIAL CONSULT ANESTHESIA LIVER TRANSPLANT SERVICE DATE: 05/01/2024 SERVICE TIME: [address] Rosales for an opinion regarding there Candidacy for liver transplantation. My final recommendations will be communicated back to the requesting physician by way of shared Medical record or letter to requesting physician via US mail. ASSESSMENT AND PLAN: Loyd Blandon is a 68 year old male with end stage liver disease as described in the HPI below. 1. Thrombocytopenia (HCC) - ICD9: 287.5, ICD10: D69.6 (primary diagnosis) 2. Pleural effusion associated with hepatic disorder - ICD9: 511.89, 573.9, ICD10: K76.9, J91.8 3. Shortness of breath - ICD9: 786.05, ICD10: R06.02 4. Lesion of liver greater than 1 cm in diameter - ICD9: 573.8, ICD10: K76.9 5. Alcoholic cirrhosis of liver with ascites (HCC) - ICD9: 571.2, ICD10: K70.31 6. Liver transplant candidate - ICD9: V49.83, ICD10: Z76.82 7. Metabolic dysfunction-associated steatotic liver disease (MASLD) - ICD9: 571.8, ICD10: K76.0 According to my assessment, Mr. Loyd Blandon is an acceptable candidate for orthotopic liver transplant from an anesthetic point of view pending the following workup: cardiology consult with echo, cardiac catheterization, final results from chest imaging and pulmonary function tests, and pulmonary consult for SOB, 2mm nodule, and pleural effusion. Anesthesia for transplantation with risks, benefits, and alternatives was discussed with patient including the participation of anesthesiology residents, invasive monitoring, massive blood transfusion, and possibility of prolonged intubation. The patient and/or family appears to understand and wishes to proceed. SUBJECTIVE: CHIEF COMPLAINT: Consultation for liver transplant evaluation. HPI: This is a 68 year old male who presents with end-stage liver disease from ETOH and JARAMILLO complicated by the following: Ascites with frequent paracentesis, Encephalopathy treated with lactulose, Episodes of Esophageal Varices Bleeding , Portal Hypertension,Thrombocytopenia. The patient also has Recinos's esophagus, GERD, s/p cholecystectomy, s/p BCC 2017 . Patient has had cirrhosis for 5 month(s). Dr Johnson in [place] referred here to Dr Weir. Patient Currently has the Following Access: None ACTIVE PROBLEM LIST Osteoporosis Gerd (Gastroesophageal Reflux Disease) Recinos's Esophagus Htn (Hypertension) Incisional Hernia Without Mention of Obstruction Or Gangrene Hx of Colonic Polyps PAST MEDICAL HISTORY Diagnosis Date Recinos's esophagus GERD (gastroesophageal reflux disease) Gout HTN (hypertension) Hx of colonic polyps Osteoporosis Umbilical hernia PAST SURGICAL HISTORY Procedure Laterality Date CHOLECYSTECTOMY 2011 COLONOSCOPY every 3 years EGD every 3 years FAMILY HISTORY Problem Relation Age of Onset COPD Mother Coronary Artery Disease Mother Coronary Artery Disease Father Hypertension Mother Hypertension Father None Sister SOCIAL HISTORY: Social History Tobacco Use Smoking status: Former Current packs/day: 0.00 Average packs/day: 1 pack/day for 20.0 years (20.0 ttl pk-yrs) Types: Cigarettes Start date: 02/18/1971 Quit date: 02/18/1991 Years since quittin.2 Substance Use Topics Alcohol use: Yes Alcohol/week: 10.0 standard drinks of alcohol Types: 10 Cans of Beer (12oz) per week Comment: 1-2 drinks nightly Drug use: No MEDICATIONS: No current facility-administered medications for this visit. Current Outpatient Medications Medication Instructions CALCIUM CARB/VIT D3/MINERALS (CALCIUM CARBONATE-VIT D3-MIN) 1,200 mgcalcium - 1,000 unit chew 2 tablets, DAILY carvedilol (COREG) 3.125 mg, ORAL, 2 TIMES DAILY W/MEALS furosemide (LASIX) 60 mg, ORAL, 2 TIMES DAILY lactulose 10 g, ORAL, DAILY lansoprazole (PREVACID) 30 mg, ORAL, DAILY Magnesium Oxide 500 mg, ORAL, DAILY multivitamin tablet 1 tablet, DAILY rifAXIMin (XIFAXAN) 550 mg, ORAL, 2 TIMES DAILY spironolactone (ALDACTONE) 150 mg, ORAL, DAILY spironolactone (ALDACTONE) 200 mg, ORAL, DAILY torsemide (DEMADEX) 60 mg, ORAL, DAILY MELD 3.0: 13 at 04/29/2024 8:17 AM MELD-Na: 9 at 04/29/2024 8:17 AM Calculated from: Serum Creatinine: 1.13 mg/dL at 04/29/2024 8:17 AM Serum Sodium: 134 mmol/L at 04/29/2024 8:17 AM Total Bilirubin: 1.3 mg/dL at 04/29/2024 8:17 AM Serum Albumin: 3.0 g/dL at 04/29/2024 8:17 AM INR(ratio): 1.1 at 04/29/2024 8:17 AM Age at listing (hypothetical): 68 years Sex: Male at 04/29/2024 8:17 AM ALLERGIES: ALLERGIES No Active Allergies OBJECTIVE REVIEW OF SYSTEMS: PAIN ASSESSMENT: Negative for pain, history of chronic pain, or current treatment for a chronic pain condition. GENERAL: No weight loss, malaise or fevers. HEENT: Negative. NECK: Negative for lumps, goiter, pain and significant neck swelling. RESPIRATORY: Negative for cough, hemoptysis, wheezing or shortness of breath. Severe SOB CARDIOVASCULAR: Decreasing exercise tolerence. GI: Abdominal discomfort. Diarrhea. : No history of dysuria, frequency or incontinence. No difficulty urinating, nocturia > 1 timeper night or hematuria. MUSCULOSKELETAL: Negative for joint pain or swelling, back pain or muscle pain. SKIN: Negative for lesions, rash, and itching. PSYCH: Sleep deprivation. HEMATOLOGY/LYMPHOLOGY: Negative for prolonged bleeding, bruising easily or swollen nodes. ENDOCRINE: Negative for cold or heat intolerance, polyuria, polydipsia and goiter. NEURO: Negative. Occasional confusion PHYSICAL EXAM: VITAL SIGNS: BP 115/69 Pulse (!) 56 Temp 36.4 C (97.6 F) (Temporal) Resp 16 Ht 176.5 cm (5'9.49 ) Wt 81.2 kg (179 lb) SpO2 97% BMI 26.06 kg/m GENERAL: Healthy, alert, no distress, cooperative. HEENT: PATIENT INTUBATED AND/OR HAS TRACHEOSTOMY: No MOUTH OPENING/TMJ: Full jaw ROM MICROGNATHIA/OVERBITE: No MALLAMPATI SCORE: MP 2 DENTITION: Chipped, loose, and/or missing THYROMENTAL DIST: WNL SHORT NECK: No NECK FLEX: Full ROM. NECK EXTENSION: Full ROM. NECK: No carotid bruits, no neck mass or tracheal deviation. SKIN: Skin color, texture, turgor normal, no suspicious rashes or lesions. CARDIAC: Regular rate and rhythm. No murmur. LUNGS: Lungs clear to auscultation. Reduced breath sounds bilaterally in lower lobes NEURO: Alert and oriented x 3. ABDOMEN: Ascites. Distended. MUSCULOSKELETAL: Spine range of motion normal. Muscular strength intact. Gait steady. Joint tenderness. ADVERSE ANESTHESIA EVENT: No history of adverse event. INTUBATION HISTORY: History of general anesthesia without difficulty. Patient WILL accept blood products while under anesthesia during surgery. PLANNED ANESTHETIC: General SPECIAL ANESTHESIA CONSIDERATIONS: Not applicable for this patient. POST-OP PAIN MANAGEMENT PLAN: PRN and/or IV narcotics per PCP. DATA: Diagnostic tests reviewed for today's visit: EKG Reading: Sinus Bradycardia Stress Test: Not done. Echocardiogram: Not done. Cardiac Cath: Not done. PFT Test: performed, preliminary result Chest Xray: Not done. CT Scan: low density right pleural effusions w/ complete collapse of right lower lobe and right middle lobe. Indeterminate 2mm right upper lobe nodule Laboratory and Testing: Lab Value Units Date High Low HB 11.5 g/dL 04/29/2024 17.0 13.0 HCT 34.3 % 04/29/2024 51.0 39.0 WBC 4.32 k/uL 04/29/2024 11.00 3.70 PLT 148 k/uL 04/29/2024 400 150 NA 134 mmol/L 04/29/2024 144 136 K 4.3 mmol/L 04/29/2024 5.1 3.7 GLUC 98 mg/dL 04/29/2024 99 74 BUN 20 mg/dL 04/29/2024 24 9 CREAT 1.13 mg/dL 04/29/2024 1.22 0.73 PTSEC 12.3 sec 04/29/2024 13.0 9.7 INR 1.1 no uni* 04/29/2024 1.3 0.9 APTT 28.6 sec 04/29/2024 32.4 23.0 ALT 22 U/L 04/29/2024 54 10 AST 41 U/L 04/29/2024 40 14 TBILI 1.3 mg/dL 04/29/2024 1.3 0.2 TSH 3.900 mIU/L 04/29/2024 4.200 0.270 GFR No results within date range. FIBRAG No results within date range. No results found for: ANTINT I spent a total of 45 minutes on the date of the service which included preparing to see the patient and [id number] patient care. SIGNATURE: Colton Laughlin MD PATIENT NAME: Loyd Blandon DATE: May 01, 2024 TIME: 8:14 AM [facility]01[facility] Consult note* Colton Laughlin MD - 05/01/2024 8:14 AM ESTAssociated Order(s): CONSULT TO ANESTHESIOLOGY INITIAL CONSULT ANESTHESIA LIVER TRANSPLANT SERVICE DATE: 05/01/2024 SERVICE TIME: [address] Rosales for an opinion regarding there Candidacy for liver transplantation. My final recommendations will be communicated back to the requesting physician by way of shared Medical record or letter to requesting physician via US mail. ASSESSMENT AND PLAN: Loyd Blandon is a 68 year old male with end stage liver disease as described in the HPI below. 1. Thrombocytopenia (HCC) - ICD9: 287.5, ICD10: D69.6 (primary diagnosis) 2. Pleural effusion associated with hepatic disorder - ICD9: 511.89, 573.9, ICD10: K76.9, J91.8 3. Shortness of breath - ICD9: 786.05, ICD10: R06.02 4. Lesion of liver greater than 1 cm in diameter - ICD9: 573.8, ICD10: K76.9 5. Alcoholic cirrhosis of liver with ascites (HCC) - ICD9: 571.2, ICD10: K70.31 6. Liver transplant candidate - ICD9: V49.83, ICD10: Z76.82 7. Metabolic dysfunction-associated steatotic liver disease (MASLD) - ICD9: 571.8, ICD10: K76.0 According to my assessment, Mr. Loyd Blandon is an acceptable candidate for orthotopic liver transplant from an anesthetic point of view pending the following workup: cardiology consult with echo, cardiac catheterization, final results from chest imaging and pulmonary function tests, and pulmonary consult for SOB, 2mm nodule, and pleural effusion. Anesthesia for transplantation with risks, benefits, and alternatives was discussed with patient including the participation of anesthesiology residents, invasive monitoring, massive blood transfusion, and possibility of prolonged intubation. The patient and/or family appears to understand and wishes to proceed. SUBJECTIVE: CHIEF COMPLAINT: Consultation for liver transplant evaluation. HPI: This is a 68 year old male who presents with end-stage liver disease from ETOH and JARAMILLO complicated by the following: Ascites with frequent paracentesis, Encephalopathy treated with lactulose, Episodes of Esophageal Varices Bleeding , Portal Hypertension,Thrombocytopenia. The patient also has Recinso's esophagus, GERD, s/p cholecystectomy, s/p BCC 2016 . Patient has had cirrhosis for 5 month(s). Dr Johnson in [place] referred here to Dr Weir. Patient Currently has the Following Access: None ACTIVE PROBLEM LIST Osteoporosis Gerd (Gastroesophageal Reflux Disease) Recinos's Esophagus Htn (Hypertension) Incisional Hernia Without Mention of Obstruction Or Gangrene Hx of Colonic Polyps PAST MEDICAL HISTORY Diagnosis Date Recinos's esophagus GERD (gastroesophageal reflux disease) Gout HTN (hypertension) Hx of colonic polyps Osteoporosis Umbilical hernia PAST SURGICAL HISTORY Procedure Laterality Date CHOLECYSTECTOMY 2011 COLONOSCOPY every 3 years EGD every 3 years FAMILY HISTORY Problem Relation Age of Onset COPD Mother Coronary Artery Disease Mother Coronary Artery Disease Father Hypertension Mother Hypertension Father None Sister SOCIAL HISTORY: Social History Tobacco Use Smoking status: Former Current packs/day: 0.00 Average packs/day: 1 pack/day for 20.0 years (20.0 ttl pk-yrs) Types: Cigarettes Start date: 02/18/1971 Quit date: 02/18/1991 Years since quittin.2 Substance Use Topics Alcohol use: Yes Alcohol/week: 10.0 standard drinks of alcohol Types: 10 Cans of Beer (12oz) per week Comment: 1-2 drinks nightly Drug use: No MEDICATIONS: No current facility-administered medications for this visit. Current Outpatient Medications Medication Instructions CALCIUM CARB/VIT D3/MINERALS (CALCIUM CARBONATE-VIT D3-MIN) 1,200 mgcalcium - 1,000 unit chew 2 tablets, DAILY carvedilol (COREG) 3.125 mg, ORAL, 2 TIMES DAILY W/MEALS furosemide (LASIX) 60 mg, ORAL, 2 TIMES DAILY lactulose 10 g, ORAL, DAILY lansoprazole (PREVACID) 30 mg, ORAL, DAILY Magnesium Oxide 500 mg, ORAL, DAILY multivitamin tablet 1 tablet, DAILY rifAXIMin (XIFAXAN) 550 mg, ORAL, 2 TIMES DAILY spironolactone (ALDACTONE) 150 mg, ORAL, DAILY spironolactone (ALDACTONE) 200 mg, ORAL, DAILY torsemide (DEMADEX) 60 mg, ORAL, DAILY MELD 3.0: 13 at 04/29/2024 8:17 AM MELD-Na: 9 at 04/29/2024 8:17 AM Calculated from: Serum Creatinine: 1.13 mg/dL at 04/29/2024 8:17 AM Serum Sodium: 134 mmol/L at 04/29/2024 8:17 AM Total Bilirubin: 1.3 mg/dL at 04/29/2024 8:17 AM Serum Albumin: 3.0 g/dL at 04/29/2024 8:17 AM INR(ratio): 1.1 at 04/29/2024 8:17 AM Age at listing (hypothetical): 68 years Sex: Male at 04/29/2024 8:17 AM ALLERGIES: ALLERGIES No Active Allergies OBJECTIVE REVIEW OF SYSTEMS: PAIN ASSESSMENT: Negative for pain, history of chronic pain, or current treatment for a chronic pain condition. GENERAL: No weight loss, malaise or fevers. HEENT: Negative. NECK: Negative for lumps, goiter, pain and significant neck swelling. RESPIRATORY: Negative for cough, hemoptysis, wheezing or shortness of breath. Severe SOB CARDIOVASCULAR: Decreasing exercise tolerence. GI: Abdominal discomfort. Diarrhea. : No history of dysuria, frequency or incontinence. No difficulty urinating, nocturia > 1 timeper night or hematuria. MUSCULOSKELETAL: Negative for joint pain or swelling, back pain or muscle pain. SKIN: Negative for lesions, rash, and itching. PSYCH: Sleep deprivation. HEMATOLOGY/LYMPHOLOGY: Negative for prolonged bleeding, bruising easily or swollen nodes. ENDOCRINE: Negative for cold or heat intolerance, polyuria, polydipsia and goiter. NEURO: Negative. Occasional confusion PHYSICAL EXAM: VITAL SIGNS: BP 115/69 Pulse (!) 56 Temp 36.4 C (97.6 F) (Temporal) Resp 16 Ht 176.5 cm (5'9.49 ) Wt 81.2 kg (179 lb) SpO2 97% BMI 26.06 kg/m GENERAL: Healthy, alert, no distress, cooperative. HEENT: PATIENT INTUBATED AND/OR HAS TRACHEOSTOMY: No MOUTH OPENING/TMJ: Full jaw ROM MICROGNATHIA/OVERBITE: No MALLAMPATI SCORE: MP 2 DENTITION: Chipped, loose, and/or missing THYROMENTAL DIST: WNL SHORT NECK: No NECK FLEX: Full ROM. NECK EXTENSION: Full ROM. NECK: No carotid bruits, no neck mass or tracheal deviation. SKIN: Skin color, texture, turgor normal, no suspicious rashes or lesions. CARDIAC: Regular rate and rhythm. No murmur. LUNGS: Lungs clear to auscultation. Reduced breath sounds bilaterally in lower lobes NEURO: Alert and oriented x 3. ABDOMEN: Ascites. Distended. MUSCULOSKELETAL: Spine range of motion normal. Muscular strength intact. Gait steady. Joint tenderness. ADVERSE ANESTHESIA EVENT: No history of adverse event. INTUBATION HISTORY: History of general anesthesia without difficulty. Patient WILL accept blood products while under anesthesia during surgery. PLANNED ANESTHETIC: General SPECIAL ANESTHESIA CONSIDERATIONS: Not applicable for this patient. POST-OP PAIN MANAGEMENT PLAN: PRN and/or IV narcotics per PCP. DATA: Diagnostic tests reviewed for today's visit: EKG Reading: Sinus Bradycardia Stress Test: Not done. Echocardiogram: Not done. Cardiac Cath: Not done. PFT Test: performed, preliminary result Chest Xray: Not done. CT Scan: low density right pleural effusions w/ complete collapse of right lower lobe and right middle lobe. Indeterminate 2mm right upper lobe nodule Laboratory and Testing: Lab Value Units Date High Low HB 11.5 g/dL 04/29/2024 17.0 13.0 HCT 34.3 % 04/29/2024 51.0 39.0 WBC 4.32 k/uL 04/29/2024 11.00 3.70 PLT 148 k/uL 04/29/2024 400 150 NA 134 mmol/L 04/29/2024 144 136 K 4.3 mmol/L 04/29/2024 5.1 3.7 GLUC 98 mg/dL 04/29/2024 99 74 BUN 20 mg/dL 04/29/2024 24 9 CREAT 1.13 mg/dL 04/29/2024 1.22 0.73 PTSEC 12.3 sec 04/29/2024 13.0 9.7 INR 1.1 no uni* 04/29/2024 1.3 0.9 APTT 28.6 sec 04/29/2024 32.4 23.0 ALT 22 U/L 04/29/2024 54 10 AST 41 U/L 04/29/2024 40 14 TBILI 1.3 mg/dL 04/29/2024 1.3 0.2 TSH 3.900 mIU/L 04/29/2024 4.200 0.270 GFR No results within date range. FIBRAG No results within date range. No results found for: ANTINT I spent a total of 45 minutes on the date of the service which included preparing to see the patient and [id number] patient care. SIGNATURE: Colton Laughlin MD PATIENT NAME: Loyd Blandon DATE: May 01, 2024 TIME: 8:14 AM documented [facility] encounterMer[facility] Telephone encounter Note * Telephone Encounter - Elaina Sotomayor HUC - 04/30/2024 3:54 PM EST Spoke with pt's Fabiana to schedule Thoracentesis 05/01/2024 @ 12:30 pm. [facility]01-14-2025 Miscellaneous Notes* Telephone Encounter - Elaina Sotomayor HUC - 04/30/2024 3:54 PM EST Spoke with pt's Fabiana to schedule Thoracentesis 05/01/2024 @ 12:30 pm. documented in this encounterMer[facility]01-14-[facility]25 History of Present illness Narrative* Alessandro Vo, [facility] - 04/30/2024 1:00 PM EST Images from the original note were not included. TRANSPLANT EVALUATION Pharmacotherapy Evaluation Patient Name: Loyd Blandon Date of Service: April 30, 2024 Mr. Blandon is a 68 year old male who presents to the clinic today for pre-liver transplantation pharmacotherapy evaluation. Patient presents to clinic with Alcoholic Cirrhosis. MELD score 13. Allergies: ALLERGIES Allergen Reactions Bactrim [Sulfametho* Rash Preferred Pharmacy e- [id number] [place] [address] - [address] [facility] - [phone] [place] [address] [address] [facility] [address] Evaluation of current pharmacotherapy: Current Outpatient Rx Medication Sig Dispense Refill carvedilol (COREG) 3.125 mg tablet Take 3.125 mg by mouth two times a day with meals. furosemide (LASIX) 20 mg tablet Take 60 mg by mouth two times a day. lactulose 10 gram/15 mL solution Take 10 g by mouth once daily. Magnesium Oxide 500 mg cap Take 500 mg by mouth once daily. rifAXIMin (XIFAXAN) 550 mg tablet Take 550 mg by mouth two times a day. spironolactone (ALDACTONE) 50 mg tablet Take 150 mg by mouth once daily. lansoprazole (PREVACID) 30 mg capsule Take 1 capsule by mouth once daily. spironolactone (ALDACTONE) 100 mg tablet Take 2 tablets by mouth once daily. 180 tablet 0 multivitamin tablet Take 1 tablet by mouth once daily. torsemide (DEMADEX) 20 mg tablet Take 3 tablets by mouth once daily. 270 tablet 0 CALCIUM CARB/VIT D3/MINERALS (CALCIUM CARBONATE-VIT D3-MIN) 1,200 mgcalcium - 1,000 unit chew Take 2tablets by mouth once daily. Medication reconciliation: Completed Knowledge of regimen: 100% brought list OTC/Herbal medications: None Anticoagulation: Not currently prescribed OARRS review: Reviewed Adherence Evaluation: Do you currently manage your medications on your own or have someone help you? Yes How often do you forget to take your medication? Never How often do you cut back or stop taking your medication without telling your doctor? Never When you travel or leave home, how often do you forget to bring along your medications? Never Did you take your medicine yesterday? Yes What strategies are you using to help you remember to take your medications? Pill box How comfortable do you feel managing your medication regimen? Good Do you have a good support system at home where someone can help you manage your medications post-transplantation until you are able to do so on your own? Yes Social History: Tobacco: History of use: 35 years ago ETOH: History of use: October 12, 2023 Illicit drugs: Denies Vaccination History Review: Immunization History Administered Date(s) Administered COVID-19 original vaccine, full dose, monovalent (MODERNA) 05/27/2020 06/24/2020 influenza (HD-IIV3) vaccine, age 65+ yr, high dose, trivalent, PF (FLUZONE HIGH-DOSE) 02/17/2021 02/01/2022 influenza (IIV3) vaccine, age 6 mo - 64 yr, trivalent (AFLURIA, FLULAVAL, FLUVIRIN, FLUZONE) 01/14/2014 02/10/2015 02/01/2016 influenza (IIV4) vaccine, age 6 mo - 64 yr, quadrivalent (AFLURIA, FLULAVAL, FLUZONE) 02/13/2017 influenza (IIV4) vaccine, age 6 mo - 64 yr, quadrivalent, PF (AFLURIA, FLUARIX, FLULAVAL, FLUZONE) 02/10/2019 influenza (IIV4) vaccine, quadrivalent (AFLURIA, FLULAVAL, FLUZONE) 01/17/2017 influenza (aIIV4) vaccine, age 65+ yr, quadrivalent, PF (FLUAD QUAD) 01/24/2023 influenza vaccine, unspecified formulation 01/23/2013 tetanus diphtheria pertussis (Tdap) vaccine, age 7+ yr (ADACEL, BOOSTRIX) 03/22/2022 zoster (RZV) vaccine, recombinant (SHINGRIX) 04/30/2022 zoster (ZVL) vaccine, live (ZOSTAVAX) 03/24/2015 May consider the following vaccinations prior to transplantation: HAV, HBV, Shingrix, and RSV Re[facility] at [facility] - will bring in records Education provided: Patient was given an overview of immunosuppressant therapy and was provided an example MedActionPlan. Patient was educated on expected adverse effects and the importance of adherence to transplant medication regimens. All questions were answered to patient s satisfaction. Patient was informed to contact the clinic if any questions or concerns arise. VISIT SUMMARY Potential drug-drug interaction with immunosuppressant regimen: No Anticoagulation: Patient is not currently on any anticoagulation. Anticipate post-transplant medication regimen non-adherence? No Factors affecting learning: None Time spent completing evaluation: 30 minutes There are no medication issues identified that would preclude transplant in this patient. Alessandro Vo, PharmD, BCPS, BCTXP Transplant Pharmacy Clinical Specialist documented in this encounterMercer [facility]01-14-2025 Telephone encounter Note * Telephone Encounter - Yesica Bright RN - 04/30/2024 10:23 AM EST AMBULATORY PATIENT EDUCATION NOTE Met with patient/family to discuss the following information: [x] SRTR information provided and questions answered. Informed patient to call digital content coordinator with any questions [x] Patient was provided the OS brochure on multiple listing and waiting time transfer [x]Evaluation process including presentation to selection committee, and listing criteria reviewed [x]Surgical procedure, including post-operative management, hospitalization, lifelong immunosuppressive medications and their side effects (including the risk for hypertension, diabetes, kidney problems and cancers) and fci follow up after transplant. Possibility of recurrent disease discussed with patient. [x]Patient is aware of the potential medical, surgical or psychosocial risks [x] Patient is aware that they will need a home care scheduler to be available for the first 8-12 weeks after discharge from the hospital. [x] Patient informed that in order to maintain their UNOS listing status periodic test will be required. If they fail to keep appointments or to undergo required lab testing, listing status may be affected. [x]Discussed organ donor risk factors, including potential risk of developing transmissible diseaseincluding but not limited to HIV, hepatitis B and C, malaria, and malignancy during liver transplant. [x]Patient advised that they may be asked to consider donors with positive lab results such as Hepatitis B or Hepatitis C, depending on their circumstances [x]Patient was advised of his/her right to decline offers for transplant without any penalty [x]Patient was advised that he/she can refuse transplantation at any time prior to transplant without any penalty. [x]Patient was advised that if they choose not to proceed with transplant, alternative treatment will be provided. Alternative treatment may include medications to control fluid buildup or medications to prevent confusion. [x] Patient told their protected health information would be released UNOS in order to be placed onthe OS waiting list for a donor organ. [x] Patient told that my medical information and procedures, without revealing my identity may be used for teaching and research activities. [x] Patient told they are responsible for arranging for payment for costs that are not covered by insurance. Patient advised that insurance approval is needed prior to listing. [x] Patient told that the [facility] is a teaching facility and part of care, under the guidance of my physicians, may be conducted by Residents, Reynolds and students. [x]Patient advised that transplants not performed in a medicare-approved hospital may negatively affect payment for medication coverage by Medicare Part B. [x]We make every attempt to provide transplant services 24 hours per day. We would notify you of any closure and assist in making alternative transplant arrangements. READINESS TO LEARN COGNITIVE ABILITY: Alert and oriented MOTIVATION TO LEARN: Eager FAMILY SUPPORT: High - Very involved in pt care INSTRUCTION PROVIDED TO: Patient and Spouse PATIENT LEARNS BEST BY: Multiple Methods FACTORS AFFECTING LEARNING: None PHYSICAL LIMITATIONS AFFECTING LEARNING: None LEARNING RESPONSE DIAGNOSIS: ETOH cirrhosis METHOD OF INSTRUCTION: Verbal instruction PATIENT / FAMILY RESPONSE: Verbalizes understanding of: RISK FACTORS-Unique risk factors related totheir disease ETOH cirrhosis FOLLOW-UP PLAN: Contact information given. SUPPLEMENTAL MATERIAL: None REFERRAL (RECOMMENDATION): None Electronically Signed By: Yesica Bright RN In Department: TRANSPLANT CENTER [facility]01-14-2025 Miscellaneous Notes* Telephone Encounter - Yesica Bright RN - 04/30/2024 10:23 AM EST AMBULATORY PATIENT EDUCATION NOTE Met with patient/family to discuss the following information: [x] SRTR information provided and questions answered. Informed patient to call digital content coordinator with any questions [x] Patient was provided the [facility]OS brochure on multiple listing and waiting time transfer [x]Evaluation process including presentation to selection committee, and listing criteria reviewed [x]Surgical procedure, including post-operative management, hospitalization, lifelong immunosuppressive medications and their side effects (including the risk for hypertension, diabetes, kidney problems and cancers) and joint terminal attack controller follow up after transplant. Possibility of recurrent disease discussed with patient. [x]Patient is aware of the potential medical, surgical or psychosocial risks [x] Patient is aware that they will need a home care scheduler to be available for the first 8-12 weeks after discharge from the hospital. [x] Patient informed that in order to maintain their UNOS listing status periodic test will be required. If they fail to keep appointments or to undergo required lab testing, listing status may be affected. [x]Discussed organ donor risk factors, including potential risk of developing transmissible diseaseincluding but not limited to HIV, hepatitis B and C, malaria, and malignancy during liver transplant. [x]Patient advised that they may be asked to consider donors with positive lab results such as Hepatitis B or Hepatitis C, depending on their circumstances [x]Patient was advised of his/her right to decline offers for transplant without any penalty [x]Patient was advised that he/she can refuse transplantation at any time prior to transplant without any penalty. [x]Patient was advised that if they choose not to proceed with transplant, alternative treatment will be provided. Alternative treatment may include medications to control fluid buildup or medications to prevent confusion. [x] Patient told their protected health information would be released UNOS in order to be placed onthe UNOS waiting list for a donor organ. [x] Patient told that my medical information and procedures, without revealing my identity may be used for teaching and research activities. [x] Patient told they are responsible for arranging for payment for costs that are not covered by insurance. Patient advised that insurance approval is needed prior to listing. [x] Patient told that the [facility] is a teaching facility and part of care, under the guidance of my physicians, may be conducted by Residents, Reynolds and students. [x]Patient advised that transplants not performed in a medicare-approved hospital may negatively affect payment for medication coverage by Medicare Part B. [x]We make every attempt to provide transplant services 24 hours per day. We would notify you of any closure and assist in making alternative transplant arrangements. READINESS TO LEARN COGNITIVE ABILITY: Alert and oriented MOTIVATION TO LEARN: Eager FAMILY SUPPORT: High - Very involved in pt care INSTRUCTION PROVIDED TO: Patient and Spouse PATIENT LEARNS BEST BY: Multiple Methods FACTORS AFFECTING LEARNING: None PHYSICAL LIMITATIONS AFFECTING LEARNING: None LEARNING RESPONSE DIAGNOSIS: ETOH cirrhosis METHOD OF INSTRUCTION: Verbal instruction PATIENT / FAMILY RESPONSE: Verbalizes understanding of: RISK FACTORS-Unique risk factors related totheir disease ETOH cirrhosis FOLLOW-UP PLAN: Contact information given. SUPPLEMENTAL MATERIAL: None REFERRAL (RECOMMENDATION): None Electronically Signed By: Yesica Bright RN In Department: TRANSPLANT CENTER [facility] History of Present illness Narrative* Gena Rudolph RN - 04/29/2024 4:00 PM EST Radiology Service Progress Note DATE OF SERVICE: April 29, 2024 TIME: 4:16 PM PATIENT WEIGHT: 179 LBS PATIENT IDENTITY VERIFICATION COMPLETED USING TWO (2) STANDARD IDENTIFIERS: Name and Date of confirmed by patient verbally and Name and Date of confirmed by identification band. FALL SCREENING: Has the patient had 2 falls in the last year or 1 fall with injury or currently using an Ambulatory Assistive Device (Walker, Cane, Wheelchair, Crutches, etc.)? No PATIENT GENDER DATA: Assigned male at ALLERGIES: Reviewed and unchanged CONTRAST ALLERGY: No EXAM: CT -CONTRAST INDUCED NEPHROPATHY RISK FACTORS: Patient age > 60 years CREATININE: Creatinine Date Value Ref Range Status 04/29/2024 1.13 0.73 - 1.22 mg/dL Final 10/17/2016 1.02 0.73 - 1.22 mg/dL Final 04/28/2016 0.85 0.73 - 1.22 mg/dL Final Estimated Glomerular Filtration Rate Date Value Ref Range Status 04/29/2024 70 >=60 mL/min/1.73m Final Comment: Estimated Glomerular Filtration Rate (eGFR) is calculated using the 2020 CKD-EPI creatinine equation. This equation utilizes serum creatinine, sex, and age as parameters. The creatinine assay has traceable calibration to isotope dilution- mass spectrometry. Refer to KDIGO guidelines for clinical interpretation. In patients with unstable renal function, e.g. those with acute kidney injury, the eGFRmay not accurately reflect actual GFR. eGFR- Date Value Ref Range Status 10/17/2016 >60 Final P.O.C.T. RESULTS: N/A April 29, 2024 TREATMENT: No Hydration needed. IV SITE: Ambulatory: A peripheral IV was started in the Left antecubital site with a Angio cath: 20gauge. and A Saline lock was inserted per protocol IV SITE APPEARANCE: Clean,Dry and Intact SIGNATURE: Gena Rudolph RN PATIENT NAME: Loyd Blandon DATE: April 29, 2024 TIME: 4:16 PM * Thao Singh RT(R) - 04/29/2024 4:00 PM EST Radiology Service Progress Note PATIENT NAME: Loyd Blandon DATE OF SERVICE: April 29, 2024 TIME: 4:59 PM PATIENT IDENTITY VERIFICATION COMPLETED USING TWO (2) IDENTIFIERS: Name and Date of confirmedby patient verbally and Name and Date of confirmed by identification band. FALL SCREENING: Has the patient had 2 falls in the last year or 1 fall with injury or currently using an Ambulatory Assistive Device (Walker, Cane, Wheelchair, Crutches, etc.)? Yes, Patient High Riskfor Falls What interventions were put in place to prevent falls during this visit? Offered Assistance with Transfers/Clothing and Increased Observations by Caregivers PATIENT GENDER DATA: Assigned male at PATIENT RELEVANT IMPLANT DATA REVIEWED: Yes PATIENT PRESENTS WITH AN IMPLANTABLE OR ATTACHED WATCHMAKER APPRENTICE: No RADIOLOGY DEPARTMENT: CT; Exam(s) Completed: Chest and Liver PERIPHERAL IV DATA: Site assessment: Clean,Dry and Intact, Site disposition Discontinued SIGNED BY: RT Aura(R) April 29, 2024 4:59 PM documented in [facility] History of Present illness Narrative* Dmitri Reyes MD - 04/29/2024 3:31 PM EST HEPATOLOGY CLINIC - NEW PATIENT Chief Complaint: decompensated alcohol related liver cirrhosis HPI: Loyd Blandon is a 68 year old male with PMH of 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 Today, here with his - After Thanks2022 - he started to have brain fog and felt confused. Liver workup was done as outpatient and he was diagnosed with cirrhosis (imaging) with negative serologic workup including normal ferritin, alpha-1 antitrypsin, ceruloplasmin, mildly positive smooth muscle antibody, negative antimitochondrial antibody, and negative hepatitis serology. He underwent a CT abdomen pelvis witha arterial enhancing 2 cm lesion in the hepatic dome concerning for possible HCC (09/2023), not seenon MRI of the liver done in October 2023. Additionally, due to tens ascites (despite being on furosemide 60 mg BID and spirolactone 150 mg ) he needs paracenteses every 3 weeks (once atypical cells weredetected) and due to right pleural effusion has had thoracentesis on two occasions. Due to large EVstarted on Coreg (3.125 mg BID). Regarding hepatic encephalopathy, patient has been compliant with Xifaxan 550mg BID. He has not been taking Lactulose daily due to frequent loose stool. reports that even with 1 teaspoon or 1/2 teaspoon, patient has worsening loose stools. -The patient was consuming alcohol daily for 30 years (every evening 3-4 drinks: vodkas or gin). Last drink in October 2023. - during the visit the patient complains about shortness of breath and abdominal distention. No signs of GI bleed. Previous Liver work-up Endoscopies/Procedures: 11/27/23 EGD: Findings: Two columns of non-bleeding, large esophageal varices that did not flatten with air insufflation. There were no high risk stigmata. Due to the patient living far away and challenges with transportation will start NSBB for primary prophylaxis Irregular Z-line with a few small islands of salmon colored mucosa suggestive of possible Recinos's. They were not biopsied due to underlying varices Moderate PHG. No gastric varices Normal duodenal bulb and D2 Colonoscopy 2019 - had polypectomy - repeat in 5 years Paracentesis: every 3-4 weeks, last one 04/03/2024 Relevant Imaging: CT w ivcon (09/25/2023): 1.No acute vascular findings. No aortic aneurysm [...] as osseous metastases cannot entirely be excluded. MRI (11/14/2023): There is a large right pleural effusion [...] Kidneys and adrenal glands appear grossly normal. Staging: Liver Bx: no Fibroscan: no Review of Systems: CONSTITUTIONAL: No fevers, chills, nightsweats, unintended weight loss HEENT: Denies frequent or severe heaches, nasal congestion/sinus symptoms, problematic allergy problems. EYES: No diplopia or blurry vision; no scleral icterus CARDIOVASCULAR: No chest pain,no palpitations, orthopnea, PND PULM: reports SOB , unexplained cough. GI: No dysphagia/odynophagia, problematic reflux, constipation,changes in stool habits, hematochezia, melena. : No new urinary complaints, including dysuria, gross hematuria or pyuria. NEURO: No new balance problems, peripheral weakness/paresthesias or numbness of concern; no confusion or altered mental status MUSC-SKEL: No new joint pain, swelling, or erythema. PSY: No concerns regarding depression, anxiety or panic. INTEGUMENTARY: no jaundice, telangiectasias Past Medical History: PAST MEDICAL HISTORY Diagnosis Date Recinos's esophagus GERD (gastroesophageal reflux disease) Gout HTN (hypertension) Hx of colonic polyps Osteoporosis Umbilical hernia Family History: FAMILY HISTORY Problem Relation Age of Onset COPD Mother Coronary Artery Disease Mother Coronary Artery Disease Father Hypertension Mother Hypertension Father None Sister Social History: Patient Risk Factors for Liver disease include: ETOH use: How many times in the past year have you had 4 (women) or 5 (men)+ drinks in one day? No IVD use: No I have confirmed and edited as necessary, the PFSH and ROS obtained by others. Current Outpatient Medications on File Prior to Visit Medication Sig multivitamin tablet Take 1 tablet by mouth once daily. CALCIUM CARB/VIT D3/MINERALS (CALCIUM CARBONATE-VIT D3-MIN) 1,200 mgcalcium - 1,000 unit chew Take 2tablets by mouth once daily. No current facility-administered medications on file prior to visit. Vitals: BP 114/71 Pulse 50 Temp 96.8 Resp 12 Ht 5' 9.488 (1.77m) Wt 179 lb (81.2kg) SpO2 96% BMI 26.06 kg/(m^2). Physical Exam: GENERAL: no apparent distress, pleasant EYES: no scleral icterus LUNGS: CARDIAC: regular rate and rhythm, normal S1, S2, no murmurs ABDOMEN: ascites present with shifting dulleness, no hepatosplenomegaly, no tenderness EXTREMITIES: mild bilateral leg edema NEURO: AOx3. No asterixis SKIN: No jaundice Laboratory: CBC Hemoglobin (g/dL) Date Value 04/29/2024 11.5 03/06/2014 14.0 Hematocrit (%) Date Value 04/29/2024 34.3 03/06/2014 42.2 WBC (k/uL) Date Value 04/29/2024 4.32 03/06/2014 7.54 Platelet Count (k/uL) Date Value 04/29/2024 148 03/06/2014 130 CMP Glucose 98 04/29/2024 BUN 20 04/29/2024 Creatinine 1.13 04/29/2024 Sodium 134 04/29/2024 Potassium 4.3 04/29/2024 Chloride 99 04/29/2024 CO2 24 04/29/2024 Protein, Total 7.0 04/29/2024 Albumin 3.0 04/29/2024 Calcium 9.1 04/29/2024 Alkaline Phosphatase 101 04/29/2024 Bilirubin, Total 1.3 04/29/2024 AST 41 04/29/2024 ALT 22 04/29/2024 PT/INR Recent Labs 04/29/24 0817 APTT 28.6 INR 1.1 AFP No results found for: AFP IMAGING STUDIES: Reviewed in HPI Impression/Recommendations Assessment and Plan: In conclusion, Loyd Blandon is a 68 year old male with PMH of 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 MELD-Na: {MELD 3.0: 13 at 04/29/2024 8:17 AM MELD-Na: 9 at 04/29/2024 8:17 AM Calculated from: Serum Creatinine: 1.13 mg/dL at 04/29/2024 8:17 AM Serum Sodium: 134 mmol/L at 04/29/2024 8:17 AM Total Bilirubin: 1.3 mg/dL at 04/29/2024 8:17 AM Serum Albumin: 3.0 g/dL at 04/29/2024 8:17 AM INR(ratio): 1.1 at 04/29/2024 8:17 AM Age at listing (hypothetical): 68 years Sex: Male at 04/29/2024 8:17 AM Ascites/HHT - we would recommend to increase spironolactone to 200 mg daily, stop furosemide and start torsemide 60 mg BID - please repeat CMP and CBC 3 days after starting torsemide - re-educated on importance of adherence to low sodium diet (2000 mg sodium per day or less) - we put an order for diagnostic and therapeutic paracentesis (with cytology!) and thoracentesis (cell count and culture) - in agreement with the patient and his , the patient is not a candidate for TIPS due to overt HE Hepatic encephalopathy - continue lactulose 10-15 cc daily (patient has 3-4 Bms with this) and rifaximin 550 mg PO BID - will check for TSH Varices - esophageal and/or gastric - no history of bleeding - date of last EGD November 2023 - large EV w/o high risk stigmata, moderate PHG. - due to previous dizziness and low BP while on Coreg 6.25 mg BID, we recommend to continue with current dose of 3.125 mg BID - plan to repeat EGD at [facility] HCC screening - requires imaging every 6 months if evidence of advanced fibrosis/cirrhosis + AFP - there was concern for arterially enhancing hepatic lesion based on CT done in September 2023. However,no lesions were seen on MRI done afterwards. AFP 2.58 on 04/29/2024 - we will repeat CT A/P today after this visit LT: MELD is 13, however due to decompensated liver cirrhosis (ascites, HHT and HE) despite conservative treatment, we would recommend to continue with transplant evaluation RTC-TBD Lee Ann Art MD Hepatology Fellow .Attending Note I evaluated the patient and personally participated in the david components. I agree with the fellow's findings and plan as documented and have discussed the case and management of the patient's care with the fellow. I reviewed the patient's clinical course and believe that he should proceed with liver transplant evaluation. I discussed the risks of worsening hepatic encephalopathy as well as 30% chance of TIPS not completely reversing diuretic refractory ascites. We discussed that if the patient desires TIPS, I would not recommend placement without OLT as a back-up option. Patient and patient's have chosen to not pursue TIPS at this time after weighing risks and benefits. They would like to proceed with OLT evaluation. We will transition patient to Torsemide 60 mg daily (from Lasix 60 mg q12h), with plans to titrate gradually as electrolytes and kidney function allow. Patient will obtain CMP 2-3 days after startingTorsemide. Increasing Aldactone from 100 mg---150 mg daily. Will schedule thoracentesis and paracentesis evaluation for this week given that patient is visibly short of breath on examination today. If patient is to require supplemental oxygen or has worsening symptoms, he will need to go to the ED for urgent evaluation. There is no additional ability to maximize effects of lactulose given that patient already has 3-5 Bms per day with once daily dosing. He is also on Rifaximin. Patient has mild inducible asterixis onexamination today. Signature: Dmitri Reyes MD Date: 04/29/2024 Time: 7:40 PM documented in [facility] History of Present illness Narrative* Lis Larsen LISW - 04/29/2024 12:49 PM EST Orthotopic Liver Transplant (OLT) Psychosocial Evaluation Patient: Loyd Blandon Date Evaluated: April 29, 2024 Patient consents to participate in psychosocial evaluation for liver transplant: Yes Patient agrees to have the following present during evaluation: -Fabiana Patient Location: in person Identifying Information: Pt prefers to be called: Huber Preferred pronoun: his Age: [age] year old Ethnicity: White - White// Heritage [place] Citizen: Yes Preferred Language: Pashto Lives now: Loyd Blandon [phone] [place] [address] Impressions: Patient is a 68 year old , male being evaluated for an OLT due to a diagnosis of alcohol-related cirrhosis, possible HCC . Social Support- Patient lives at home with his in house in [place], [place]. Patient reports that he has 3 stairsto enter the house, he also has 18 stairs to the bedroom and bathroom. Patient needs help with his ADLs, and uses a wheelchair for long distances, and does not use a device when at home for ambulation. Patient's , Fabiana, will serve as the primary caregiver, while pt's sister, Gisell, will serve as the secondary caregiver. Patient was present during th evaluation. She demonstrated understanding of the caregiver role, and has 07/11 availability to assist patient. SW spoke with patient sister via phone, and explained the role of a caregiver. Patient sister demonstrated understanding, an d has flexibility in her schedule as she is not currently working. Patient has other available family as additional caregiver support as needed. Patient lives about an hour and half away, and should be able to return home post-transplant for recovery and follow-up period, patient is aware of the possibility that he would need to remain local for some time and would stay at step mom' house. Insurance/Financial- Patient has adequate insurance coverage for transplant through his [employer] Medicare plan. Patient hashousehold income through his social security income as well as his 's. Patient also has a small pension. Patient reports that their household income is adequate to cover living expenses and bills, and is adequate to cover transplant related expenses including lodging if needed. Patient shared that he will look into any travel or lodging benefits he may have through his insurance. Fundraising options discussed. Patient at this time does not have any financial concerns. Chemical Dependency- Patient has a substance use history that includes tobacco, alcohol, and cannabis. Patient reports that he started smoking at [age]. He shared that at his heaviest he smoked 2 packs per day. Patient shared that he quit in 1989. Patient reports that he first had alcohol in high school. Patient sharedthat he would drink when he got home from work from 5pm to 10pm. Patient shared that he would have 5 drinks, usually vodka and coke or gin and tonics. Patient reports that this behavior was consistent over the last 10 years. Patient retired and had more time to consume alcohol, and would slightly drink more. Patient shared that his last drink was 10/12/23. He shared that he was told to stop drinking in September of 2023. Patient reports that he never missed a day of work and feels that his use was not problematic for him. Patient has minimal insight to how his drinking was affecting him overall, and SW discussed removing alcohol from his home. Patient current Peth is negative. Patient meets DSM-5 criteria for diagnosis of Alcohol Use Disorder, Mild, in early remission. Patient meets standard guidelines for chemical dependency at this time as he has 2 out of 11 recidivism risk factors. Patient reports that he first tried marijuana in 10th/11th grade. He shared at this time his use was recreational. Patient shared that he has been using one gummy a week to assist with sleep. Patientis aware that he needs to abstain from cannabis use or obtain a medical marijuana. Patient shared that he is in agreement to abstain at this time. Patient current lab is negative for cannabinoids. Mental Health/Coping- Patient denies any mental health history. Patient shared that his mood is currently depressed, and overall feels tired of not feeling well. Patient shared that he continues to adjust to his diagnosis. Patient has not taken medication for mood in the past, and does take an over the counter sleeping pill as needed. Patient has never engaged in counseling before. Patient is future-oriented and denies any history of SI/HI. Patient has adequate coping skills for transplant which include doing crossword puzzles and watching sports. There are no mental health concerns for this patient in proceeding with transplant evaluation and listing. Compliance- Patient shared that he has MyChart. Patient manages his appointments by placing them on her phone, but when there is a lot of them she writes them in a notebook. Patient shared, I do what I am told to do. Patient was able to share how many medications he is on, and has a good understanding of what they are for. Patient manages his medications using a pillbox, but his fills it currently. Patient shared that he is able to fill it if he needs too. There are no compliance concerns for this patient at this time. Patient reports a good therapeutic alliance with medical providers. Comprehension of Medical Issues and Transplant- Patient has a good understanding of their condition and associated treatment. Patient has a good understanding of the transplant process and post-transplant patient expectations. Patient shared that his motivation is that he has not lived a full life yet, and hopes that transplant would give him more time. Patient is a good historian and generally truthful with providing information to the medical team. SIPAT Total Score: SIPAT Total Score: 21 SIPAT Score Interpretation 0 - 6 Excellent candidate Recommend to list for transplantation without reservations. 7 - 20 Good candidate Recommend to list for transplantation - although monitoring of identified risk factors may be required. 21 - 39 Minimally Acceptable Candidate Consider Listing. Identified risk factors must be satisfactorily addressed before representing for consideration. 40 - 69 Poor Candidate Recommend deferral while identified risks are satisfactorily addressed. > 70 High Risk candidate, significant risks identified Surgery is not recommended while identified risk factors continue to be present. Recommendations: Patient is a moderate psychosocial risk for liver transplant due to hx of alcohol use and lack of insight. This does not make patient a prohibitive candidate, so from a SW perspective patient is a suitable candidate for liver transplant listing. Plan: SW to follow up with patient annually, or sooner if needed. Monthly Peths/tox screens should be obtained. Medical History: Diagnosis/Reason for referral: tested him and needs a new liver..cirrhosis alcohol induced Date first told of liver disease: fatty liver 20 some years ago, February 2023 saw GI that just changed medications, and the last 6 months really understanding what is going on Symptoms: loss of appetite, encephalopathy: lactulose rifaximin, fluid in abdomen (ascites), fatigue, cirrhosis, and esophageal varices Previously evaluated for OLT: NO MELD 3.0: 13 at 04/29/2024 8:17 AM MELD-Na: 9 at 04/29/2024 8:17 AM Calculated from: Serum Creatinine: 1.13 mg/dL at 04/29/2024 8:17 AM Serum Sodium: 134 mmol/L at 04/29/2024 8:17 AM Total Bilirubin: 1.3 mg/dL at 04/29/2024 8:17 AM Serum Albumin: 3.0 g/dL at 04/29/2024 8:17 AM INR(ratio): 1.1 at 04/29/2024 8:17 AM Age at listing (hypothetical): 68 years Sex: Male at 04/29/2024 8:17 AM Other medical concerns:GERD Previous surgeries: gall bladder removed, hernia surgery, repaired tendon in elbow PCP: Dr. Sanjay Robledo Date of last physical: going on 05/15/23 Other providers/specialists: GI, Dr. Garzon, [facility] Personal History: Born: [place], [place] Grew up where: went to 8 high schools, [place] [facility], moved around a lot Parents: Pt was raised by: mom raised him, and got along well with her. Had contact with biologicaldad, he 5 years ago. Got when patient was 8. Dad from old age, and mom was COPD and emphysema, alcoholic Siblings: 3 brothers and a sister-brothers live in [place], and sister lives on the [facility] (don't talk to sister); half lvwhea-Grtmnpu-njmbfigbv part Pt is the: oldest Describes upbringing as: typical kid, mom worked 2-3 jobs, and he would take on the role of caregiver Quality of family relationships: talk with his brothers Life changing events: divorce Ever ill, abused, neglected as a child: never sick, never abused or neglected How far in school: high school Tech/trade school, College: none How was school: easy Learning disabilities: none 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 How many? 2 -1 son and 1 dtr Names and Ages: Bev-41 Loyd-45 Location: No contact with Bev, lives in [place], [place] Loyd-lives in [place] Health issues: Loyd is an addict Quality of relationships: Fabiana has some contact with Loyd No contact with Bev at all Currently Resides with: Lives with in a house Own/Rent: own Length of time at current residence: 2 years Set up of home: 18 stairs to the bedroom and full bath, 3 stairs to enter the house Working Utilities: good Pets: 2 cats Hobbies/Interests: Likes golfing, watching football, cooking Community Supports: Episcopalian: No Other supports: spouse/partner and siblings-half sister, step mom Functioning Abilities: ADL's: requires assistance with the following ADL's: bathing, toileting, ambulating, grocery shopping, house cleaning, and driving-breathing is the issue (sob) Ambulation: Uses a wheelchair-for long distances in the hospital, but does not use a device when athome Community Services/Agencies: None Driving: none-the last year Valid University Relations Director's License:yes Access to Transporation: Yes Caregiving for others: none Medications/medical appointments: Uses MyChart: yes How do you track appointments: Patient manages them by placing them on her phone, but when there is a lot of them she writes them in a notebook. I do what I am told to do. Does anyone attend appointments with you: -fabiana Knows names of medications: Patient shared that he takes about 6 medications, patient feels he understands what they are for How are medications stored/organized: manages using a pillbox, and fills it. 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: good Compliant: Good with consistent follow through Motivation for a transplant: Patient shared that his motivation is that he is not ready to yet,I do not feel that I have lived a full life yet Living Donor: haven't looked into it Discussed MELD score, evaluation process, selection committee, listing, waiting, the call, surgery,hospital recovery time, hospital stay, discharge, fci recovery Financial: Insurance: Medicare-Aetna Prescription Coverage : none Which pharmacy do you use[facility] Coverage for anti-rejection medications: will reach out Travel/Lodging Benefits: she believes so Sources of Household income: Patient has SSI, as well and a small pension Disability (Y/N): N Current Financial Concerns: no major concerns, lease on truck, house Plan for time away from work: n/a Plan for lodging arrangements if needed: step moms Provided worksheet for financial planning: n/a Fundraising discussed/encouraged: discussed Potential financial barriers to transplant: none Social Support: Where will you stay for your initial recovery?: step mom Primary support person: Fabiana- Home # [phone] Availability 07/11 Driving:yes Medical/Health Concerns: none Secondary support people: Gisell-half sister Contact #: [phone] Availability not working Driving: yes Medical/Health Concerns: none Who can drive you, be off work, learn your medications, etc.: family Plan for children or pets: Gisell-half sister Other people available: family Family stressors/disagreements: none If multiple caregivers are identified are they able to work together?: yes Patient and Care -Partner(s) read and signed- Patient and 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 Cells 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 Commitment: reviewed Mental Health History/Coping: Current Mental Status: patient shared that his mood is depressed, tired of not feeling well; adjusting Appearance: well groomed Thought Content: goal oriented, at times confused MH History: none Suicidal Ideation/Attempts: none Psychiatric Hospitalizations: none Medications, Counseling, or professional help: no medications for mood, over the counter sleep aid just as needed Never been to counseling for any reason Coping Skills: crossword puzzles, watching sports Potential barriers to transplant: none Is a referral to Transplant Psychiatry needed?: none Tobacco, Drugs, Alcohol Use: Tobacco: First Use: high school Last Use: 1989 Frequency: daily Amount: 2 PPD Method: cigarettes Alcohol: never missed a day of work, would drink when he would get home from 5-10 5 drinks-vodka coke/gin tonic, last 10 years was this-job was more routine-more time to consume 20s-not a lot when he went out 30s recreational First Use: high school Last Use: 10/12/23 Frequency: daily Amount: 5-6 drinks Marijuana: was using to help sleep First Use: high school 01/25 (recreational) Last Use: 2 weeks ago Frequency: 1x a week Amount: 1 gummy Method: edible Cocaine: no current or past use Heroin: no current or past use LSD: no current or past use Uppers/Downers: no current or past use Prescription Drugs: no current or past use Non Prescription Drugs (OTC): no current or past use Did anyone (medical doctors) tell you you should stop drinking and if so, who? Told to stop in September2023 Problems associated with substance use? Work/School: N Family: N Social/Lost Relationships: N Debt: N Psychological/psychiatric problem: N Health/physical problem: Y Violence: N Legal: N Preoccupation: N DSM 5 Substance Use Disorder Criteria: The substance is often taken in larger amounts or over a longer period than was intended. Y 2. There is a persistent desire or unsuccessful effort to cut down or control use of the substance.N 3. A great deal of time is spent in activities necessary to obtain the substance, use the substance, or recover from its effects. N 4. Craving, or a strong desire or urge to use the substance. N 5. Recurrent use of the substance resulting in a failure to fulfill major role obligations at work,school, or home. N 6. Continued use of the substance despite having persistent or recurrent social or interpersonal problems caused or exacerbated by the effects of its use. N 7. Important social, occupational, or recreational activities are given up or reduced because of use of the substance. N 8. Recurrent use of the substance in situations in which it is physically hazardous. Y 9. Use of the substance is continued despite knowledge of having a persistent or recurrent physicalor psychological problem that is likely to have been caused or exacerbated by the substance. N 10. Tolerance, as defined by either of the following: Y a. A need for markedly increased amounts of the substance to achieve intoxication or desired effect. b. A markedly diminished effect with continued use of the same amount of the substance. 11. Withdrawal, as manifested by either of the following: N a. The characteristic withdrawal syndrome for that substance (as specified in the DSM- V for each substance). b. The substance (or a closely related substance) is taken to relieve or avoid withdrawal symptoms. Level of Severity: Mild (2-3) Moderate (4-5) Severe (6+) Insight: Demonstrates no insight to problems or situations-never had issues, was able to function and do life Does the patient acknowledge dependence (Y/N)? N History of AoD treatment: none Feelings about lifelong sobriety: It is fine Substance present in the home: yes, wine in the fridge, liquor in cabinet Sober supports: friends and family Chemical Dependency Recidivism Risk factors 1. Has not participated in any structured chemical dependency treatment and/or 12-step meetings with [facility] or [facility] since their last use. Y 2. Does not have adequate sober, stable social network to support the patient s commitment to abstinence both pre and post- transplant N 3. Does not have insight into his/her past misuse/abuse. Y 4. Persistent desire or unsuccessful efforts to cut down or control use. N 5. Continued to use substance despite being told the use is affecting his/her health. N 6. Has uncontrolled psychiatric symptoms and does not have adequate coping skills for dealing with stressors. N 7. History of problems at work, school or home due to substance use. N 8. Has failed random toxicology screens during medical evaluation for transplant. N 9. Active polysubstance use/abuse. N 10. History of driving under the influence or other legal consequences of substance use. N 11. Meets DSM-5 criteria for severe use disorder. N Total risk factors identified: 2 Does the patient meet chemical dependency guidelines (less than 7 risk factors)? Yes Any interventions needed at this time: none at this time Patient agreeable to treatment if recommended? N/A Advance Directives: Living Will: Yes Durable Power of International Trade Compliance Manager: Yes Information/forms given: completed a couple weeks ago ANNA Norris, WILBERT-S, [facility] April 29, 2024 12:49 PM documented in this encounterMercer [facility]01-13-[facility] Instructions* Patient Instructions* Ivelisse Graham RD - 04/29/2024 12:09 PM EST Patient participated in a pre-transplant shared nutrition group class which reviewed the following nutrition principles: 1.Plate method for Lunch/Dinner 1/2 plate vegetables, 1/4 plate starch or whole grains, 1/4 plate lean sources of protein 2. Low-Fat Diet -avoid high-fat meats, replace with lean meats -replace butter with olive oil -limit foods high in saturated fats (<3g per serving) -choose low-fat or non-fat dairy products 3. Low-Sodium Diet -2000mg or less sodium/day -do not add any additional salt to food -use sodium-free seasonings like herbs and spices -avoid canned foods and processed foods -limit fast-food, takeout and convenience foods 4. Low-Sugar -<36g added sugars per day -aim for 64oz caffeine and sugar-free fluids per day 5. High-Protein Diet -81-97g protein per day -Choose protein-rich foods with all meals and snacks -if unable to meet needs with foods, supplement with protein shakes -Try fairlife milk and fairlife shakes documented in this encounterMercer County Community Hospital01-13-2025 History of Present illness Narrative* Crtalic-Ivelisse DelgadoEBER - 04/29/2024 12:00 PM EST AMBULATORY PATIENT EDUCATION NOTE - Shared Nutrition Group (In Person) TOPIC:?Pre-liver transplant nutrition evaluation Malnutrition Screening Significant unintentional weight loss? Yes Eating less than 75% of usual intake for more than 2 weeks? Yes NUTRITION FOCUSED PHYSICAL EXAM: Subcutaneous Fat Loss Orbital Mild Triceps Severe Mid-axillary at the iliac crest Severe Muscle Loss Locations: Temporalis Mild Pectoralis Moderate Deltoids Moderate Interosseous Severe Latissimus dorsi, trapezius Severe Quadriceps Unable to determine at this time Gastrocnemius Unable to determine at this time Potential micronutrient deficiency revealed in: No deficiency identified Edema: No Ascites: Yes Assessment of Functional Status: Able to do little activity and spend most of the day in bed or chair for a duration of 6 months Potential Signs of Inflammation: chronic condition In the context of Chronic Illness or Injury based on: Unintentional Weight Loss: >10% in 6 months Insufficient Energy Intake: Less than 75% energy intake compared to estimated needs for greater than or equal to 1 month Subcutaneous Fat Loss: Severe Loss Muscle Loss Severe Loss READINESS TO LEARN: Cognitive Ability: Alert and oriented Motivation To Learn: Interested Family Support: High - Very involved in pt care Instruction Provided To: Patient and Spouse Patient Learns Best By: Multiple Methods Factors Affecting Learning: None Physical Limitations Affecting Learning: None LEARNING RESPONSE Patient/Family verbalizes understanding of pre-operative instructions and correct actions to take to follow pre-operative instructions. Anthropometrics: Height: Last 1 Encounter Ht Readings: Date: Ht: 04/29/2024 176.5 cm (5' 9.5 ) Weight: Last 1 Encounter Wt Readings: Date: Wt: 04/29/2024 81.3 kg (179 lb 4.8 oz) Body mass index is 26.1 kg/m . Resting Metabolic Rate: 1576 Nutrition Assessment: Patient presents for nutrition clearance prior to liver transplant. 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 Optimizing nutritional adequacy will support recovery post-transplant. Patient receives paracentesis ever2-3 weeks. Dry weight unavalible, at this time patient has significant ascites noted. Patient notesdecreased intake of meals, poor appetite and gets full quickly. Nutrition Diagnosis: Behavioral-Environmental: Food and nutrition related knowledge deficit, related to, lack of prior exposure to information , as evidenced by new medical diagnosis RECOMMENDED MALNUTRITION DIAGNOSIS: SEVERE PROTEIN-CALORIE MALNUTRITION Educational materials provided: Healthy Lunch/Dinner Plate, High Protein Foods, and Your Sodium Controlled Diet, and Body Mass Index and Body Fat, Snack Ideas, Added Sugar, Lean Protein Foods Patient participated in a pre-transplant shared nutrition group class which reviewed the following nutrition principles: 1.Plate method for Lunch/Dinner 1/2 plate vegetables, 1/4 plate starch or whole grains, 1/4 plate lean sources of protein 2. Low-Fat Diet -avoid high-fat meats, replace with lean meats -replace butter with olive oil -limit foods high in saturated fats (<3g per serving) -choose low-fat or non-fat dairy products 3. Low-Sodium Diet -2000mg or less sodium/day -do not add any additional salt to food -use sodium-free seasonings like herbs and spices -avoid canned foods and processed foods -limit fast-food, takeout and convenience foods 4. Low-Sugar -<36g added sugars per day -aim for 64oz caffeine and sugar-free fluids per day 5. High-Protein Diet -81-97g protein per day -Choose protein-rich foods with all meals and snacks -if unable to meet needs with foods, supplement with protein shakes -Try fairlife milk and fairlife shakes Nutrition Pre-Transplant Assessment Severe Protein-Calorie Malnutrition Patient is to follow-up with in patient nutrition services after surgery. Patient and took suggestions provided well and are actively agreeing to work on increasing intake of meals specifically focusing on protein intake to maintain/gain muscle and work to maintain weight. Referred/Supervised by: Transplant Team/Guille Consult Billing Type: Ambulatory Group/30 min 2 units SIGNATURE: Ivelisse Graham RD PATIENT NAME: Loyd Blandon DATE: April 29, 2024 TIME: 12:01 PM documented in this encounterMercer County [facility]01-13-2025 History of Present illness Narrative* Amaury Sheffield, PROMOS EXECUTIVE PRODUCER - 04/29/2024 10:00 AM EST PULM FUNCTION: Provider: Dmitri Reyes MD Spirometry: 1 System: 8 - [id number] documented in this encounterMercer County Community Hospital01-09-2025 History of Present illness Narrative* Kalyn George RN - 04/25/2024 11:46 AM EST The following information has been provided/discussed with the patient/family during Shared MedicalAppointment education class: Informed Consent for Organ Transplant Program Participation version November 03, 2022. SRTR information provided and questions answered. Informed patient to call digital content coordinator with any questions. UNOS information regarding multiple listings for organ transplantation Evaluation process including presentation to selection committee and listing criteria Surgical procedure, including post-operative management, hospitalization, immunosuppressive medications and their side effects (including the risk for hypertension, diabetes, kidney problems and cancers) and joint terminal attack controller follow up after transplant. Possibility of recurrent disease discussed with patient. Patient was advised that if they choose not to proceed with transplant, alternative treatment will be provided Potential medical or psychosocial risks Discussed organ donor risk factors including potential risk of developing transmissible disease including but not limited to HIV, hepatitis B and C, malaria, and malignancy. Patient's right to decline such offers for transplant was also addressed Patient was provided with [facility] information sheet regarding transplantation of HepatitisC viremic organs into Hepatitis C negative recipients. Risks and benefits of hepatitis C transplantand treatment were discussed. Patient was advised that he/she can refuse transplantation at any time prior to transplant without any penalty. Patient advised that transplants not performed in a medicare-approved hospital may negatively affect payment for medication coverage by Medicare Part B. Text/Email Communication Consent Loyd Blandon has given a verbal authorization on April 25, 2024 for health information to be sent via unencrypted email or text messages. Loyd Blandon has expressed understanding that unencrypted email (or text) messages and any attachments are at risk and could potentially be read by a third republican when sent through the internet (or cellular phone) and desires to receive his protected health information by unencrypted email (or text). INFORMED CONSENT Loyd Blandon Medical Record: [id number] Informed consent for Organ Transplant Program Participation Informed Consent for Organ Transplant Program Participation version November 03, 2022 was provided topatient. The risks, benefits, alternatives and anticipated outcomes of the Organ Transplant Program Participation, and tasks of the personnel to be involved were discussed with the patient. The patient consents to participation in the Organ Transplant Program. The patient was provided an opportunity to ask questions and have questions answered. Kalyn George RN April 25, 2024 documented in this encounterMercer County [facility] Hospital01-08-2025 Telephone encounter Note * Telephone Encounter - Chas King II - 04/24/2024 4:20 PM EST Spoke with patient to confirm scheduled Liver Transplant evaluation for next week. Confirm that patient received their OLT evaluation schedule: Yes Is the pt scheduled for virtual education? Yes - Confirm that pt has set up zoom and remind pt of time/date for appt Does the pt have any questions about their schedule: No If they are not on MyChart, did they receive the information packet? Yes Remind patient to hand carry the following outside records per the Intake Nurse's note (Review intake note by RN for items needed and specify here): yes - Dermatology Remind patient to fast for 12 hours prior to lab draw? 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 No Does patient have to hold Beta Connie? NO [facility]01-08-[facility] Miscellaneous Notes* Telephone Encounter - Chas King II - 04/24/2024 4:20 PM EST Spoke with patient to confirm scheduled Liver Transplant evaluation for next week. Confirm that patient received their OLT evaluation schedule: Yes Is the pt scheduled for virtual education? Yes - Confirm that pt has set up zoom and remind pt of time/date for appt Does the pt have any questions about their schedule: No If they are not on MyChart, did they receive the information packet? Yes Remind patient to hand carry the following outside records per the Intake Nurse's note (Review intake note by RN for items needed and specify here): yes - Dermatology Remind patient to fast for 12 hours prior to lab draw? 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 No Does patient have to hold Beta Connie? NO documented in this encounterMercer County Community Hospital01-07-2025 Telephone encounter Note * Telephone Encounter - Virginia Hickman RN - 04/23/2024 11:50 AM EST I spoke with Pt and Spouse and obtained all necessary information. Full eval will be scheduled per protocol. Pt and Spouse instructed to review liver transplant information online at [email or web address] orpaper information sent to pt and to have someone accompany them to appointments. All questions answered. Contact information provided and advised to call our office with any questions/concerns or schedule changes. Will schedule eval: week of 04/29/24 Zoom education class: 04/25/24 Virginia Hickman RN [facility]01-07-2025 Miscellaneous Notes* Telephone Encounter - Virginia Hickman RN - 04/23/2024 11:50 AM EST I spoke with Pt and Spouse and obtained all necessary information. Full eval will be scheduled per protocol. Pt and Spouse instructed to review liver transplant information online at [email or web address] orpaper information sent to pt and to have someone accompany them to appointments. All questions answered. Contact information provided and advised to call our office with any questions/concerns or schedule changes. 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 MELD: 18 Pt has had a previous liver transplant evaluation: No Was the pt declined at another transplant center due to cardiovascular disease: N/A Pt has a PCP: Yes Liver Biopsy: no Complications of liver disease: ascites, paracentesis, encephalopathy, Hepatic Hydrothorax, Thoracentesis, EV, and liver lesion, metabolic syndrome, thrombocytopenia Cardiac History / Cardiac Surgical History: Yes, Htn Cardiac Risk Factors: Patients under 60 years old with any of the below cardiac risk factors will need cardiology Staff review Documented history of Coronary Artery Disease: No Abnormal Stress Test within past 5 yrs: No Coronary calcifications on CT imaging: N/A LV EF <50% on most recent Echo: No Diabetes Yes Last HbA1c: 5.8% in 2017 Dyslipidemia: Yes Last LDL: 95mg/dL in 2017 Prior Cardiac Workup Completed: Prior cardiology visit: None EKG: Yes, 06/02/23 CE Echo within past 5 yrs: Yes, 12/20/23 CE Stress within past 5 yrs: None Heart cath: None CT chest within past 5 yrs: None Pertinent Health History: Kidney: None Last Cr: 1.2 Last eGFR: 65.1 (for GFR <40 get Cystatin C and nephrology consult) Dialysis? 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 Psych: None Other pertinent history: Yes, recinos's esoph, early satiety, weight loss, GERD, dyspepsia Vitals: Date: 03/08/24 BP: 130/91 mmHg HR: 68 bpm Ht: 175.3cm Wt: 84.4kg BMI: 27.47 (send BMI >35 to clinical manager area)(If BMI>35 and diagnosis of alcohol, note that on blue sticky note) Mobility aid: Wheelchair for longer distance due to SOB Able to walk 1-2 flat city blocks: No Able to go up 2 flights of stairs without difficulty: No Medications: Beta Connie: Yes Which beta connie: carvedilol Pharmacy updated in Epic if beta connie needed: Yes Anticoagulation: no Patient taking pain meds: no If yes, does pt follow with pain management? N/A ALLERGIES Allergen Reactions Bactrim [Sulfametho* Rash Substance History: Smoking: Yes -amount: 2-3 PPD, # of years: ~15, Last use: Age 33 Cough: No Hoarseness: No ETOH: Yes: Last Drink: 09/2023, Rehab: No I advised pt to abstain from alcohol: Yes I advised pt to enroll in a chemical dependency program: No Drugs: Yes: Last Use: MJ gummies currently, Rehab: No I advised pt to abstain from drug use: Yes I advised pt to enroll in a chemical dependency program: No Comments: Yes, MJ policy explained Health Maintenance: Last Mammogram: Not applicable Last Pap: Not applicable Last Dental Exam: ~4 mo (02/14/24) Last Derm Visit: >1 yr Last Colonoscopy: Unsure, he will check if he can find result or update locally Last Endoscopy: 02/20/24 Large EV, no banding Vaccination History (from previous 10 years - Covid, Hepatitis A and B, Tetanus, Zostivax, Flu, Pneumonia, etc.): Epic Testing completed already: None Pt will need: CT liver for indeterminate mass like lesion, pulm Pt to provide the following records: Yes, dental, derm Virginia Hickman RN [facility] Telephone encounter Note * Telephone Encounter - Virginia Hickman RN - 04/23/2024 9:33 AM EST [facility] Referral for Liver Transplant This is a 68 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 MELD: 18 Pt has had a previous liver transplant evaluation: No Was the pt declined at another transplant center due to cardiovascular disease: N/A Pt has a PCP: Yes Liver Biopsy: no Complications of liver disease: ascites, paracentesis, encephalopathy, Hepatic Hydrothorax, Thoracentesis, EV, and liver lesion, metabolic syndrome, thrombocytopenia Cardiac History / Cardiac Surgical History: Yes, Htn Cardiac Risk Factors: Patients under 60 years old with any of the below cardiac risk factors will need cardiology Staff review Documented history of Coronary Artery Disease: No Abnormal Stress Test within past 5 yrs: No Coronary calcifications on CT imaging: N/A LV EF <50% on most recent Echo: No Diabetes Yes Last HbA1c: 5.8% in 2017 Dyslipidemia: Yes Last LDL: 95mg/dL in 2017 Prior Cardiac Workup Completed: Prior cardiology visit: None EKG: Yes, 06/02/23 CE Echo within past 5 yrs: Yes, 12/20/23 CE Stress within past 5 yrs: None Heart cath: None CT chest within past 5 yrs: None Pertinent Health History: Kidney: None Last Cr: 1.2 Last eGFR: 65.1 (for GFR <40 get Cystatin C and nephrology consult) Dialysis? 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 Psych: None Other pertinent history: Yes, recinos's esoph, early satiety, weight loss, GERD, dyspepsia Vitals: Date: 03/08/24 BP: 130/91 mmHg HR: 68 bpm Ht: 175.3cm Wt: 84.4kg BMI: 27.47 (send BMI >35 to clinical manager area)(If BMI>35 and diagnosis of alcohol, note that on blue sticky note) Mobility aid: Wheelchair for longer distance due to SOB Able to walk 1-2 flat city blocks: No Able to go up 2 flights of stairs without difficulty: No Medications: Beta Connie: Yes Which beta connie: carvedilol Pharmacy updated in Epic if beta connie needed: Yes Anticoagulation: no Patient taking pain meds: no If yes, does pt follow with pain management? N/A ALLERGIES Allergen Reactions Bactrim [Sulfametho* Rash Substance History: Smoking: Yes -amount: 2-3 PPD, # of years: ~15, Last use: Age 33 Cough: No Hoarseness: No ETOH: Yes: Last Drink: 09/2023, Rehab: No I advised pt to abstain from alcohol: Yes I advised pt to enroll in a chemical dependency program: No Drugs: Yes: Last Use: MJ gummies currently, Rehab: No I advised pt to abstain from drug use: Yes I advised pt to enroll in a chemical dependency program: No Comments: Yes, MJ policy explained Health Maintenance: Last Mammogram: Not applicable Last Pap: Not applicable Last Dental Exam: ~4 mo (02/14/24) Last Derm Visit: >1 yr Last Colonoscopy: Unsure, he will check if he can find result or update locally Last Endoscopy: 02/20/24 Large EV, no banding Vaccination History (from previous 10 years - Covid, Hepatitis A and B, Tetanus, Zostivax, Flu, Pneumonia, etc.): Epic Testing completed already: None Pt will need: CT liver for indeterminate mass like lesion, pulm Pt to provide the following records: Yes, dental, derm Virginia Hickman RN [facility]01-06-2025 Telephone encounter Note* Telephone Encounter - Virginia Hickman RN - 04/22/2024 1:34 PM EST Spoke with pt and spouse Fabiana. Pt is having SOB, continuous but worsening a bit. He has had Thoracentesis a couple times but it only helps temporarily. They state that pulmonary does not want to doany more thora's. I will review his case for intake today/tomorrow to get him scheduled in the next week or 2. In themeantime, I advised them to either report to the ED (which they declined stating that they don't doanything but give him some O2 and release him) or to call pulmonary to report symptoms and request some home O2 to keep him comfortable until we can see him. Virginia Hickman RN [facility]01-06-2025 Miscellaneous Notes* Telephone Encounter - Virginia Hickman RN - 04/22/2024 1:34 PM EST Spoke with pt and spouse Fabiana. Pt is having SOB, continuous but worsening a bit. He has had Thoracentesis a couple times but it only helps temporarily. They state that pulmonary does not want to doany more thora's. I will review his case for intake today/tomorrow to get him scheduled in the next week or 2. In themeantime, I advised them to either report to the ED (which they declined stating that they don't doanything but give him some O2 and release him) or to call pulmonary to report symptoms and request some home O2 to keep him comfortable until we can see him. Virginia Hickman, RN * Telephone Encounter - Jillian Aguayo - 04/22/2024 11:14 AM EST Patients is calling for status update. She wants to know what the next step is. Pt is having difficulty breathing and she would like to speed up the process. [facility] Telephone encounter Note * Telephone Encounter - Jillian Aguayo - 04/22/2024 11:14 AM EST Patients is calling for status update. She wants to know what the next step is. Pt is having difficulty breathing and she would like to speed up the process. [facility] Work Phone: 1(333) 125-904012-12-2024 Telephone encounter Note* Telephone Encounter - Chas King II - 03/28/2024 12:39 PM EST LIVER TRANSPLANT REFERRAL Loyd Blandon [id number] Diagnosis: ETOH MELD Na: 18 (Check EPIC labs and Care Everywhere to calculate the MELD Score. Look for a CMP [TotalBilirubin/Albumin/Creatinine, Sodium] and the INR. If unable to calculate the MELD notify the Intake Txp Coordinator.) If MELD is >/= 25, please route to Intake Txp Coordinator with high priority and send to FC immediately. Patient's Age: 68 (If the patient is 73 yrs or older, route this referral to the Intake Txp Coord, Virginia Hickman, to review) Is pt being referred for Special Access Clinic? No (Special Access Clinic referrals will only come via fax specifying that this is a special access patient) -IF YES, ROUTE TO TXP COORDINATOR [place] Hickman Who is referring the patient for transplant? Dr. Irena Hook MD: Dr. Irena Johnson PCP: Yes - Name: Dr. Sanjay Alberts Is the pt on dialysis? No Is the pt referred for dual organ? NO How long does it take you to drive to [facility]? 1.5 hours Who will accompany you to your transplant evaluation? spouse Have you ever been evaluated for liver transplant? No Do you have a potential living donor? No OUT OF STATE MEDICAID PATIENTS: APC - run the Medicaid through [employer] to determine if the coverage is Out of Network (OON) with [facility]. If the Medicaid is OON, inform the patient that their PCP will need to send a referral to the Outof State Medicaid for a Transplant Evaluation. Have you been seen at another Transplant Center that was in-network with your Out of State (OOS) Medicaid and denied a Transplant Evaluation? No Has your PCP sent in a referral for transplant to your (OOS) Medicaid case consultant? No MyCHART Is the patient signed up for MyChart? Yes - Send patient the OLT New Referral Message OUTSIDE RECORDS (ENSURE THAT RECORDS ARE OBTAINED FROM REFERRING PHYSICIAN OFFICE) Have you ever been seen by: -Cardiology? no -Nephrology? no -Psychiatry? no Care Everywhere: List the facilities that records have been requested from [facility] Be sure to obtain consent from pt to obtain records in care everywhere if it is required [facility]: List the facilities or physicians that records have been requested from [facility] Have images been requested from [facility]? Yes (If imaging records are available in Care Everywhere, still request the outside images via [facility]) A nurse will call for medical intake: -who should she call (Name/relationship to pt)? patient -what phone number? [phone] Phone number to office provided to pt: Yes Additional Comments about patient/evaluation: n/a Chas King [facility]12-12-2024 Miscellaneous Notes* Telephone Encounter - Chas King II - 03/28/2024 12:39 PM EST LIVER TRANSPLANT REFERRAL Loyd Blandon [id number] Diagnosis: ETOH MELD Na: 18 (Check EPIC labs and Care Everywhere to calculate the MELD Score. Look for a CMP [TotalBilirubin/Albumin/Creatinine, Sodium] and the INR. If unable to calculate the MELD notify the Intake Txp Coordinator.) If MELD is >/= 25, please route to Intake Txp Coordinator with high priority and send to FC immediately. Patient's Age: 68 (If the patient is 73 yrs or older, route this referral to the Intake Txp Coord, Virginia Hickman, to review) Is pt being referred for Special Access Clinic? No (Special Access Clinic referrals will only come via fax specifying that this is a special access patient) -IF YES, ROUTE TO TXP COORDINATOR [place] Hickman Who is referring the patient for transplant? Dr. Irena Hook MD: Dr. Irena Johnson PCP: Yes - Name: Dr. Sanjay Alberts Is the pt on dialysis? No Is the pt referred for dual organ? NO How long does it take you to drive to [facility] 1.5 hours Who will accompany you to your transplant evaluation? spouse Have you ever been evaluated for liver transplant? No Do you have a potential living donor? No OUT OF STATE MEDICAID PATIENTS: APC - run the Medicaid through [employer] to determine if the coverage is Out of Network (OON) with [facility]. If the Medicaid is OON, inform the patient that their PCP will need to send a referral to the Outof State Medicaid for a Transplant Evaluation. Have you been seen at another Transplant Center that was in-network with your Out of State (OOS) Medicaid and denied a Transplant Evaluation? No Has your PCP sent in a referral for transplant to your (OOS) Medicaid case consultant? No MyCHART Is the patient signed up for MyChart? Yes - Send patient the OLT New Referral Message OUTSIDE RECORDS (ENSURE THAT RECORDS ARE OBTAINED FROM REFERRING PHYSICIAN OFFICE) Have you ever been seen by: -Cardiology? no -Nephrology? no -Psychiatry? no Care Everywhere: List the facilities that records have been requested from [facility] Be sure to obtain consent from pt to obtain records in care everywhere if it is required [facility]: List the facilities or physicians that records have been requested from [facility] Have images been requested from [facility]? Yes (If imaging records are available in Care Everywhere, still request the outside images via [facility]) A nurse will call for medical intake: -who should she call (Name/relationship to pt)? patient -what phone number? [phone] Phone number to office provided to pt: Yes Additional Comments about patient/evaluation: n/a Chas King documented [facility]12-09-2024 Telephone encounter Note * Telephone Encounter - Chas King II - 03/25/2024 10:30 AM EST Called patient regarding a liver transplant evaluation, left message on voicemail to return call [facility]12-09-2024 Miscellaneous Notes* Telephone Encounter - Chas King II - 03/25/2024 10:30 AM EST Called patient regarding a liver transplant evaluation, left message on voicemail to return call documented in [facility]Mer[facility]11-22-2024 Note Attestation signed by Irena Johnson MD at 03/08/2024 3:02 PM I personally saw and examined the patient on the same date of service as fellow. I discussed the findings and therapeutic plan with the fellow. I agree with the documentation, except for any edits/updates below. 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 AFP wnl. Patient will need a repeat paracentesis and a stat chest xray ordered as he is dyspneic. Given large varices on last EGD and no banding performed, will increase Coreg to 6.25 mg in am and 3.125 mg in pm. Advised to monitor BP with new dose change and for signs of hypotension. I discussed the importance of lowering portal pressures, especially since they do not want EVL for primary prophylaxis Counseled on limiting dietary sodium to less an 2 grams per day Counseled on protein intake Counseled on importance of maintaining abstinence from alcohol (last drink October 11) Discussed liver transplant in detail and referral placed to [facility] based patient and 's request Updated MELD 3.0 labs I spent [60] minutes of total time [...] documentation in this note for specific details. [facility] Gastroenterology Follow-Up Patient Visit CHIEF COMPLAINT No chief complaint on file. HISTORY OF PRESENT ILLNESS: Loyd Blandon is a 68 y.o. male male with hx of recinos's esophagus getting EGD every 3 years, last EGD, 2021 presented to the office for establish care on 12/27/23. Patient reported feeling nausea and vomiting. Patient [...] 100 mg and Lasix 40 mg daily. INTERVAL HISTORY 03/08/24: Patient was seen and examined today. He feel distended and full of fluids. He doesn't like doing paracentesis very often as it is painful for him. His endorses some episodes of hepatic encephalopathy. His BP is around 110/70 according to his but sometimes he feels dizzy. He feels short of breath a lot. He is taking Lasix 60 mg and aldactone 150 mg daily. He is also on Coreg 3.125 mg bid. PREVIOUS LABS/IMAGING/ENDOSCOPY: EGD on 02/20/2024: Impression: Large esophageal varices without high risk stigmata Small sliding hiatal hernia Moderate portal hypertensive gastropathy. No evidence gastric varices. Deformed antrum with nodular mucosa Normal duodenal bulb and D2 Recommendations: Continue coreg 3.125 mg BID and uptitrate based on tolerance Repeat EGD in 6 months to one year for surveillance Follow up in hepatology clinic 11/27/23 EGD: Findings: Two columns of non-bleeding, large esophageal v (more content not included)... [facility]11-05-2024 NoteHospital Medicine Discharge Summary Final Discharge Diagnosis: Decompensated [...] Admission Diagnosis: Pleural effusion [J90] Hospital course: Loyd Blandon is a 68 y.o. male with [...] Gastroenterology and Pulmonary Dear Dr. Danny MD, Loyd is advised to follow up with you within 1-2 weeks. Items to follow up in ambulatory setting: None Follow-up with: Gastroenterology Scheduled appointments: Future Appointments Date Time Provider Department Center 03/08/2024 2:00 PM Irena Johnson MD [facility] Your medication list CHANGE [...] 37.5-25 mg capsule Commonly known as: Dyazide Loyd has No Known Allergies. Disposition: Home or [...] differential In process Fungal culture In process Non-die reamer cytology - fluid exam In process PH PLEURAL FLUID, RESPIRATORY In process Pathology Review In process AFB culture Preliminary result Body fluid cell differential Preliminary result Body fluid culture Preliminary result Diet at the time of discharge: regular diet and low-sodium diet Nutrition Screen Activity: Patient currently has no discharge activity orders Objective Blood p (more content not included)...[facility] 02-20-2024 Note02/20/24 1518 Admission Assessment Questions Verify insurance with patient Yes Do you understand medical disease or what brought you into the hospital? Yes Who is your current PCP? Sanjay Robledo Can I schedule a follow up appointment for you at the time of discharge? Yes Do you understand why you are taking your current medications? Yes Are you taking your medications as prescribed? Yes Did patient provide teach back? No Pharmacy Bedside Delivery Status Interested Does the patient have a case consultant assigned to them through their insurance? No [...] able to send link and activate MyChart? NoUn[facility] NotePatient: Loyd Blandon Procedure Summary Date: 02/20/24 Room / Location: [facility] Invasive Surgery [place] Endoscopy Anesthesia Start: 1315 Anesthesia Stop: 1340 Procedure: EGD Diagnosis: Esophageal varices without bleeding, unspecified esophageal varices type (CMS/HCC) Scheduled Providers: Jl Kent MD; VALDEMAR Garrido; Milargo Sheehan MD Responsible Provider: Jl Kent MD Anesthesia Type: [...] PACU per anesthesia protocol. No notable events documented.[facility]11-05-2024 Note Hospital Medicine Daily Progress Note - 02/20/2024 1:46 PM; Room: OR/- Admission: 02/19/2024 4:29 PM; Length of stay: 1 days THE HOSPITALIST TEAM PREFERS TO USE [employer] CHAT FOR NON-URGENT COMMUNICATION 7AM-7PM. IF I DO NOT RESPOND WITHIN 20 MINUTES OR URGENT MATTERS, PLEASE CALL THROUGH THE CYBER INCIDENT HANDLER. FROM 7PM-7AM, PLEASE PAGE [phone](COVR). Code Status: Full Code Barriers to Discharge: [...] [JUN Hold] famotidine, 40 mg, oral, BID [JUN Hold] furosemide, 60 mg, oral, Nightly [...] , FREET4 , CORTISOL , FEV1 , SLP2QBQ , DLCO , RVSP , HDL , LDL No results found for: [id number] , IRON , TIBC , C3 , [...] that demonstrated two columns (more content not included)...[facility]11-05-2024 NoteHospital Medicine Daily Progress Note - 02/20/2024 1:34 PM; Room: OR/- Admission: 02/19/2024 4:29 PM; Length of stay: 1 days THE HOSPITALIST TEAM PREFERS TO USE [employer] FOR NON-URGENT COMMUNICATION 7AM-7PM. IF I DO NOT RESPOND WITHIN 20 MINUTES OR URGENT MATTERS, PLEASE CALL THROUGH THE CYBER INCIDENT HANDLER. FROM 7PM-7AM, PLEASE PAGE [phone](COVR). Code Status: Full Code Barriers to Discharge: [...] , FREET4 , CORTISOL , FEV1 , FOS5BTT , DLCO , RVSP , HDL , LDL No results found for: [id number] , IRON , TIBC , C3 , [...] is a recent righ (more content not included)...[facility]11-05-2024 Note Attestation signed by Aston Conner MD at 02/21/2024 1:03 PM I was present and supervised the procedure THORACENTESIS PROCEDURE NOTE Procedure Illustrator Set: Sriram Sue MD Attending Physician: Aston Conner MD Procedure: Right sided thoracentesis Consent: Written, informed consent was obtained from the patient prior to the procedure Procedure Summary: A time-out was called, the patient was correctly identified using name, MRN and date of is a corresponding to the patient's wrist bracelet. The patient was placed in the sitting position. The site of entry was located using anatomic landmarks and ultrasound guidance. Approximately 5 cm of fluid were noted between the pleural surfaces on the right side. The area was prepped and draped in a sterile fashion. The area was locally anesthetized with a total of 10 cc of 1 percent lidocaine. Upon entry into the pleural space, straw colored appearing fluid was noted. Scalpel was then used to make an incision in the skin. A 8Fr catheter with needle was advanced into the space with negative suction until fluid was aspirated. The catheter was then advanced while the needle was held stationary. The catheter was attached to 3 way stopcock and using 50cc syringe hand suction was used to aspirate fluid. approximately 1500 cc of fluid was removed. The specimen was sent for pH, glucose, total protein, LDH, cholesterol, as well as cell count with differential and cultures. The catheter was then removed and the procedure ended. Post procedure ultrasound using vascular probe was then used and lung sliding was observed in anterior, lateral, and posterior michelle The patient tolerated the procedure well. A post procedure chest x-ray was ordered. Findings: Successful removal of 1500 cc straw colored fluid from the right hemithorax. Sriram Sue MD Pulmonary and Critical Care Fellow [facility]11-05-2024 Note Attestation signed by Aston Conner MD at 02/21/2024 1:04 PM Patient was seen and examined with the resident on the same date of service, I discussed the findings and therapeutic plan with the resident/fellow, I agree with the documentation, assessment and plan as above except for any edits/updates below. Aston Conner MD Pulmonary and critical care Pulmonology Progress Patient : Loyd Blandon : 1955 Location: OR/- Attending: Rosa Monzon MD Admit Date: 02/19/2024 Hospital Day: 1 Reason for Consult: Dyspnea, large right-sided pleural effusion. Subjective: Interval History 02/20/2024: Patient is seen at bedside this morning. He was sleeping more than 90% on room air. Massive ascites can be seen. Patient was slightly dyspneic. We took the consent from the patient for thoracentesis earlier in the morning of 02/20/2024. Patient has no active complaint he gets therapeutic paracentesis and thoracentesis every 3 to 4 weeks because of his advanced liver cirrhosis history. Loyd Blandon is a 68 y.o. male with [...] cirrhosis for which he follows up with [facility] gastroenterology. He has been struggling with recurrent ascites and has undergone multiple paracentesis over the past many weeks. He experiences dyspnea both at rest and over exertion for the past [address] imaging he was found to have large right-sided pleural effusion for which he underwent thoracentesis by club concierge at [facility]. Patient reports that his dyspnea got better/relieved for 1 day and he became symptomatic again after the fluid got reaccumulated. Today patient came to the [facility] hospital for an EGD he [...] showing bilateral pleural effusion right more than left s/p thoracentesis on 02/19 1.5 L fluid is taken out. Post procedure chest x-ray showing decrease in pleural fluid. Decompensated alcoholic liver cirrhosis, Recinos esophagus/esophageal varices/ Multiple paracentesis, follows up with GI very closely for surveillance EGDs. Hypertension chronic stable. Type II DM. GERD Plan: Supplemental oxygen to keep oxygen saturation above 90%. Patient is status post thoracentesis on 02/20/2024. We will follow-up on the pleural fluid labs. Patient has tolerated the procedure very well. There is no objection to be discharge from pulmonology standpoint. Patient will get EGD post thoracentesis and if he is doing okay he can be discharged. Patient is not a candidate for Pleurx catheter as there is a risk of infection with hepatic hydrothorax. Definitive treatment for this is TIPS which patient can discuss with his Primary GI doctors. Follow-up at the [facility] for therapeutic paracentesis and thoracentesis. Current Medications: Scheduled Meds: [JUN Hold] carvedilol, 3.125 mg, oral, Nightly [JUN Hold] famotidine, 40 mg, oral, BID [JUN Hold] furosemide, 60 mg, oral, Nightly [JUN Hold] lactulose, 10 g, oral, Daily [JUN Hold] pantoprazole, 40 mg, oral, Daily [JUN Hold] prednisoLONE acetate, 1 drop, Both Eyes, TID [JUN Hold] rifAXIMin, 550 mg, oral, (more content not included)...[facility]11-05-2024 NotePatient: Loyd Blandon Procedure Information Date/Time: 11/27/23 1130 Scheduled providers: Irena Johnson MD; lJ Kent MD; VALDEMAR Heath Procedure: EGD Location: [facility] [place] Relevant Problems Cardio (+) Aortic root dilatation [...] normal exam Pulmonary (+) decreased breath sounds [facility]dominalSelect [facility]11-05-2024 NoteA. Satisfactory for evaluation. Examination of the ThinPrep slide and cell block reveals a hypocellu lar specimen containing few mesothelial cells and scattered inflammatory cells in a background of proteinaceous material.[facility] Comment on above:Performed By: #### LAB13 ####[facility] (BEAKER)[address], [place] [id number] NoteHospital Medicine History and Physical 02/19/2024 3:19 PM THE HOSPITALIST TEAM PREFERS TO USE [employer] CHAT FOR COMMUNICATION 7AM-7PM. IF I DO NOT RESPOND WITHIN 15 MINUTES, PLEASE PAGE ME/CALL THROUGH THE CYBER INCIDENT HANDLER. FROM 7PM-7AM, PLEASE PAGE [phone](COVR). Chief Complaint EGD variceal screening History of Present Illness Loyd Blandon is a 68 y.o. male with [...] pleural effusion, thora in the past at [facility] Dyspnea 2cm Hepatic lesion in the hepatic [...] med rec is (more content not included)... [facility]10-31-2024 Note Attestation signed by Jean Jaquez MD at 02/16/2024 1:16 PM I have seen and examined the patient. I reviewed the resident/fellow note and I agree with the findings and plan. Jean Jaquez MD Interventional Pulmonary Medicine Pulmonary and Critical Care Medicine [facility] Visit Note Patient: Loyd Blandon Age: 68 y.o. : 1955 Account No.: [id number] Referring physician: Dr. Irena Johnson Chief complaint: Dyspnea HPI Loyd Blandon is a 68 y.o. male with [...] he underwent thoracentesis by Dr. Winter at [facility]. He reports that his dyspnea was only [...] mouth two times daily. 11/08/23 11/07/24 Yes Jason Miles MD furosemide (Lasix) 20 mg tablet Take [...] mouth in the morning. 01/16/24 05/15/24 Yes Renard Hazel MD lansoprazole (Prevacid) [address] capsule TAKE 1 CAPSULE BEFORE A MEAL TWICE DAILY FOR 30 DAYS Patient taking differently: Take 30 mg by mouth before breakfast. TAKE 1 CAPSULE BEFORE A MEAL TWICE DAILY FOR 30 DAYS 11/21/23 Yes Jason Miles MD magnesium oxide (Mag-Ox) 400 mg tablet [...] Yes Marito Oquendo MD (more content not included)...[facility]10-03-2024 History of Present illness Narrative* Ira Walker, - 01/18/2024 1:30 PM EDT Images from the original note [...] different lens options were explained including the [id number] fees for any upgrades. Intraocular lens (IOL) [...] OS will take place - and OD -. documented in this encounterUniversity Health Lakewood Medical [id number] Note Attestation signed by Irena Johnson MD at 01/01/2024 8:49 AM I discussed the findings and therapeutic plan with the fellow. I agree with the documentation, except for any edits/updates below. I called and spoke with the patient and his , Fabiana. I confirmed with them that they should use Lasix 60 mg once daily as previously instructed, and they acknowledged this.[facility]09-11-2024 Note Attestation signed by Irena Johnson MD [...] were changed during his recent hospitalization at [facility], therefore, will repeat labs Will change to [...] documentation in this note for specific details. [facility] Gastroenterology Follow-up visit CHIEF COMPLAINT Chief Complaint Patient presents with Follow-up Cirrhosis Ascites HISTORY OF PRESENT ILLNESS: Loyd Blandon is a 68 y.o. male with [...] that the patient was recently hospitalized at [facility] for worsening ascites and shortness of breath. She reports that patient has fluid removed via thoracentesis and paracentesis. He has not undergone paracentesis since his hospital stay. She reports that d (more content not included)... [facility]08-28-2024 History of Present illness Narrative* Xuan Espino, JOEL - 12/13/2023 1:30 PM EDT Images from the original note were not included. Subjective Patient ID: Loyd Blandon is a 68 y.o. male who presents for TB follow up. Loyd is present today for TB follow up. He was inpatient from 12/07/23 - 12/08/23. Dx. Ascites, Pleural Effusion, Sinus Bradycardia. He had a Thoracentesis and Paracentesis. His Lasix was increasedto 40 mg BID but saw [facility] Registered Nurse in [place], Dr. Hazel, and he was not happy about that dosage so he had him do bloodwork to check his kidneys and he had that done this morning and results are in thecomputer. Today he is SOB with exertion, dizziness all the time and has to be careful when he gets up d/t he is afraid he is going to fall (has not fell though) states he just doesn't feel good, abdominal pain just last night and he took TUMS and it did help, things the pain was d/t he ate too much fruit. States his belly is filling back up again. States the room is spinning. Current Outpatient Medications on File Prior to Visit Medication Sig Dispense Refill Calcium Carb-Cholecalciferol (Calcium 500 + D) 500-3.125 MG-MCG tablet Take 1 tablet by mouth 1 (one) time each day [DISCONTINUED] carvedilol (Coreg) 3.125 MG tablet Take 3.125 mg by mouth in the morning and 3.125 mg in the evening. Take with meals. [DISCONTINUED] ibuprofen 800 MG tablet Take 800 mg by mouth in the morning and 800 mg in the evening and 800 mg before bedtime. PRN. baclofen (Lioresal) 20 MG tablet Take by mouth 3 (three) times a day PRN famotidine (Pepcid) 40 MG tablet Take 40 mg by mouth in the morning and 40 mg before bedtime. furosemide (Lasix) 40 MG tablet Take 1 tablet by mouth in the morning and 1 tablet before bedtime. lansoprazole (Prevacid SoluTab) 30 MG disintegrating tablet Take 15 mg by mouth in the morning. Take before meals. Dissolve on tongue before swallowing particles; do not chew, cut, break, or swallow whole.. magnesium oxide (Mag-Ox) 400 MG tablet Take 500 mg by mouth in the morning. Multiple Vitamins-Minerals (Multi For Him) tablet Daily. [] rifAXIMin (Xifaxan) 550 MG tablet Take 550 mg by mouth in the morning and 550 mg in the evening. spironolactone (Aldactone) 100 MG tablet TAKE 1 TABLET BY MOUTH EVERY DAY FOR 30 DAYS No current facility-administered medications on file prior to visit. I have reviewed and reconciled the history and medication list with the patient today. No Known Allergies. Social History Tobacco Use Smoking status: Former Current packs/day: 0.00 Types: Cigarettes Quit date: 1989 Years since quittin.6 Smokeless tobacco: Never Substance Use Topics Alcohol use: Yes Comment: 2-3 times per week, 1-2 drinks at a time Drug use: Never Family History Problem Relation Name Age of Onset Hypertension Father Breast cancer Neg Hx Colon cancer Neg Hx Ovarian cancer Neg Hx Past Medical History: Diagnosis Date GERD (gastroesophageal reflux disease) History of colon polyps Hypertension (CMS/HCC) Past Surgical History: Procedure Laterality Date ADENOIDECTOMY BAND HEMORRHOIDECTOMY 06/13/20[address] ANGIOGRAM ABDOMEN PELVIS 09/25/2023 CT ANGIOGRAM ABDOMEN PELVIS 09/25/2023 EGD ELBOW SURGERY 2020 HERNIA REPAIR TONSILLECTOMY Visit Vitals BP 100/78 Pulse 84 Resp 18 Ht 5' 9 Wt 187 lb 6.4 oz SpO2 97% BMI 27.67 kg/m Smoking Status Former BSA 2.03 m Review of Systems Constitutional: Negative for chills, fatigue and fever. Respiratory: Positive for shortness of breath (QUESADA) and wheezing. Negative for cough. Cardiovascular: Negative for chest pain, palpitations and leg swelling. Gastrointestinal: Negative for abdominal pain, constipation, diarrhea, nausea and vomiting. Skin: Negative for rash. Neurological: Positive for dizziness. Objective Physical Exam Constitutional: General: He is not in acute distress. Appearance: He is obese. HENT: Head: Normocephalic and atraumatic. Eyes: General: No scleral icterus. Cardiovascular: Rate and Rhythm: Normal rate and regular rhythm. Heart sounds: No murmur heard. Pulmonary: Effort: Pulmonary effort is normal. No respiratory distress. Breath sounds: Normal breath sounds. No wheezing, rhonchi or rales. Abdominal: General: Abdomen is protuberant. There is distension. Tenderness: There is abdominal tenderness. Musculoskeletal: General: No swelling. Skin: General: Skin is warm and dry. Neurological: General: No focal deficit present. Mental Status: He is alert and oriented to person, place, and time. Cranial Nerves: No cranial nerve deficit. Sensory: No sensory deficit. Motor: No weakness. Coordination: Coordination normal. Gait: Gait normal. Psychiatric: Mood and Affect: Mood normal. Speech: Speech is delayed. Behavior: Behavior normal. Thought Content: Thought content normal. Judgment: Judgment normal. Assessment/Plan Diagnoses and all orders for this visit: Cirrhosis of liver with ascites, unspecified hepatic cirrhosis type (CMS/HCC) - Transthoracic Echo (TTE) Complete; Future The patient was seen today in follow up of recent hospital stay. All available hospital records were reviewed and discussed with the patient. Hospital discharge meds were reviewed. Recent CMP showed improvement in sodium and kidney function. Reviewed with pt and his . Dizziness - meclizine (Antivert) 25 MG tablet; Take 1 tablet (25 mg) by mouth 3 (three) times a day as neededfor dizziness for up to 10 days - Transthoracic Echo (TTE) Complete; Future Start Meclizine as needed for dizziness. Advised it may cause drowsiness. Abdominal distension They will contact [facility] to get set up for repeat paracentesis as needed, previously orchestrated by his GI specialist. QUESADA (dyspnea on exertion) - Transthoracic Echo (TTE) Complete; Future Will obtain an ECHO for further evaluation at this time. Gastroesophageal reflux disease without esophagitis Continue current medications as prescribed. Other ascites - Transthoracic Echo (TTE) Complete; Future The patient is seeing a medical office secretary for this condition, treatment is deferred to that specialist. Correspondence from that specialist and any available testing were reviewed during today's visit. 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 Will be having a follow up EGD in three months for monitoring of esophageal varices. Follow up for Appointment As Scheduled. documented in this encounterUniversity Health Lakewood Medical [id number] NotePatient: Loyd Blandon Procedure Summary Date: 11/27/23 Room / Location: [facility] [place] Anesthesia Start: 1041 Anesthesia Stop: 1107 Procedure: [...] PACU per anesthesia protocol. No notable events documented.[facility]08-12-2024 Note Patient: Loyd Blandon Procedure Summary Date: 11/27/23 Room / Location: [facility] Anesthesia Start: 1040 Anesthesia Stop: Procedure: EGD Diagnosis: Alcoholic cirrhosis of liver with ascites (CMS/HCC) Scheduled Providers: Irena Johnson MD; Jl Kent MD; VALDEMAR Heath Responsible Provider: Jl Kent MD Anesthesia Type: MAC ASA Status: 3 Anesthesia Post Transport [facility] Patient Monitor: direct observation Transport: uneventful Patient condition is: stableUnSelect Medical Specialty [facility], Inc08-12-2024 Note Patient: Loyd Blandon Procedure Information Date/Time: 11/27/23 1130 Scheduled providers: Irena Johnson MD; Jl Kent MD; VALDEMAR Heath Procedure: EGD Location: [facility] Relevant Problems Cardio Denies chest pain/SOB [...] patient. Plan discussed with CAA. Additional Equipment RequestsUnSelect Medical Specialty Hospital [facility], Inc07-24-2024 Note Refills providedUnSelect Medical Specialty [facility], Inc07-01-2024 NotePatient is going to continue taking the medication. [facility] Follow up on status. Darnell Razo [facility] 03/04/24 1:08 PMUnSelect Medical Specialty Hospital [facility], Inc07-01-2024 NotePatient due for Xifaxan Pap renewal. Darnell Razo [facility] 02/19/24 8:39 AMUnSelect Medical Specialty Hospital [facility], Inc07-01-2024 NoteHave received pt. Portion of PAP form still waiting on prescribers portion. Re faxed the forms over to GI. Send PAP forms in once prescribers portion is signed. Darnell Razo [facility] 10/20/23 1:20 PMUnSelect Medical Specialty Hospital - [facility], Inc07-01-2024 NoteXifaxan PA approved through 04/10/2024, previous approval. Pt has not been on lactulose, prescribed lactulose on the same day as Xifaxan. Based on discussion with annual income for 2 people in the household is $52,000. Should qualify for PAP. Will email provider and pt portions. Brijesh MclaughlinD, RUBACP 10/16/23 1:56 PM [facility] [phone] Medical Specialty Hospital [facility]07-01-2024 NoteI received a [facility] - the [facility]'s was incomplete on page 5 of the application. I have corrected this and refaxed it to [facility]. We will continue to follow up. Brandi Lyle [facility] 03/11/24 2:21 [facility]07-01-2024 NotePatient assistance application approved through [facility] Approval good through 04/16/2024. Patient Case ID/Approval Number: [id number]. Notified patient and will follow up to confirm shipment/delivery is scheduled. Yamini Camarillo, [facility] 10/23/23 10:11 [facility]07-01-2024 NotePrior Authorization renewal for Xifaxan has been approved 04/17/2024-11/04/2024. Case ID/Authorization Number: [id number] [x] Patient in spreadsheet [x] Tracking Spreadsheet [x] Archive in CMM Called patient and they are aware wants to try and appeal PAP denial. Patient has 300 tablets on hand. Set follow up for Monday to write appeal. Misha Voss [facility] 05/08/24 3:01 [facility]07-01-20[address] NoteCalled [facility] and they said that the denial was reversed and the application is now under review again. Appeal was received. Follow up on status on application. Darnell Razo, [facility] 05/17/24 2:24 [facility]07-01-2024 NoteWrote appeal for PAP and had [facility] sign. Faxed to PAP awaiting determination. Follow up next week for status. Misha Voss [facility] 05/10/24 11:42 [facility]07-01-2024 NotePatient was denied PAP due to having prescription coverage. Patient is part D. I messaged YAMIL walker and Renard Hazel if they could send us a new prescription for Xifaxan so we can see what the copay is. Called and spoke with . Once we get prescription we can let them know what copay is through insurance. I gave them some information on smoothing but we can see what they want to do after we get prescription from doctor office. Called PAP if copay is really high personal banking representative encouraged us to appeal the denial. Send in letter and claim to show he can't afford. Misha Voss [facility] 05/08/24 8:35 [facility]07-01-2024 Note Attestation with edits by Josh Jane PharmD, LOYD at 03/22/2024 9:15 AM Josh Jane PharmD, LOYD 03/22/24 9:15 AM [facility] [phone] Called Abigail to check the status of the PAP application, rep stated that they cannot process 2024 application until April 17, but we do not need to resubmit the paperwork. Call to check PAP status around a week after the new year begins. Emilee Larios, [employer] [facility] 03/21/24 12:23 [facility]07-01-2024 NoteCalled patient to verify if he is still taking he said he is in hospital and having a few procedures done. Follow up later this week he won't know if he is still taking until after discharge tomorrow. Misha Voss , [facility] 02/19/24 4:31 [facility]07-01-2024 NotePatient said the delivery has been scheduled and is on its way. Aware they have to [facility] need [facility]. Have no further questions. Will no longer follow up. Darnell Razo, [facility] 10/25/23 10:27 [facility]07-01-2024 NoteSubmitted a PA for Xifaxan on [facility] awaiting determination. Once we get approval we can see how much copay is. Then we can see how much the copay for a month is and if patient is okay with it (probably high copay) or see if patient wants to talk with insurance about repayment plans, or we can appeal decision with high copay to PAP once we have claim. Misha Voss [facility] 05/08/24 2:01 [facility]07-01-2024 Note Attestation signed by Iman Rincon PharmD at 04/25/2024 9:36 AM Iman Rincon PharmD, [facility] Outpatient Clinical Pharmacist [facility] [id number] 04/25/24 9:36 AM Called [facility] to check the status of PAP, application is still pending review. F/U with [facility] to check status of PAP application. Emilee Larios, [facility] 04/15/24 10:46 [facility]07-01-2024 NoteReceived a fax from [facility] stating that they need the image of the backside of the patient's medical insurance card and a image of the script with the patient's name and drug on it. Submitted into [employer]. Awaiting on determination. Darnell Razo [facility] 03/07/24 9:05 [facility]07-01-2024 NoteXifaxan patient assistance application approved through [facility] Approval good through 04/16/2025. Patient Case ID/Approval Number: [id number]. [x] Write on board [x] PA Expiration Spreadsheet Called patient, they will call PAP to refill when they need to. Modesto Neff, [facility] [id number] 05/21/24 at 8:13 AMSelect Medical Specialty Hospital [facility]07-01-2024 NoteCalled to check on the status and the appeal has not been received yet. I was told that will take some time. Yamini Camarillo, [facility] 05/13/24 11:02 [facility]07-01-2024 NotePAP application is still pending benefit review. Awaiting determination check later for status update. Misha Voss , [facility] 04/04/24 1:40 PMSelect Medical Specialty [facility]06-28-2024 NoteI called and discussed the results of his labwork with the patient. With his sodium level being slightly below baseline, we will have him repeat his labs prior to EGD tomorrow. He expressed clear understanding. If he continues to have low sodium, we may need to consider holding diuretics.[facility]06-28-2024 Note Attestation signed by Irena Johnson MD [...] documentation in this note for specific details. [facility] Gastroenterology Follow-up visit CHIEF COMPLAINT Chief Complaint Patient presents with Cirrhosis Ascites HISTORY OF PRESENT ILLNESS: Loyd Blandon is a 68 y.o. male with [...] function of stomach (more content not included)... [facility]05-30-2024 NoteCT ordered to rule out chronic mesenteric ischemiaUnSelect Medical Special[facility], Inc02-14-2024 History of Present illness Narrative* Brayan Alves, - 05/31/2023 3:15 PM EST Images from the original note were not included. Loyd Blandon 1955 Loyd Blandon is a 67 y.o. male presents with chief complaint of pain increasingly worse and wantsto discuss surgery (Anal fissure) HPI: HPI Huber [...] pain. Negative for abdominal distention, diarrhea, nausea andvomiting. Neurological: Negative for dizziness, seizures and headaches. [...] surgery has been scheduled. documented in this encounterUniversity Health Lakewood Medical [id number] History of Present illness Narrative* Brayan Alves DO - 05/18/2023 2:00 PM EST Images from the original note were not included. Loyd Blandon 1955 Loyd Blandon is a 67 y.o. male presents with chief complaint of painful hemorrhoid HPI: HPI Huber states he has a hemorrhoid for the last 5-6 weeks. He was seen by Dr. Carroll's SENIOR BI DEVELOPER who referred him to our office. Huber [...] reflux disease) History of colon polyps Hypertension ([facility]) Social History Tobacco Use Smoking status: [...] 3 weeks for recheck documented in this encounterUniversity Health Lakewood Medical CenterLhjhhusorj00-12-2730 Evaluation note* Encounter Date Diagnosis Assessment Notes Treatment Notes Treatment Clinical Notes Apr, Nausea (ICD-10 - R11.0) Apr, Cirrhosis of liver (ICD-10 - K74.60) Apr, Early satiety (ICD-10 - R68.81) [facility] Other 12-28-2023 Evaluation note* Encounter Date Diagnosis Assessment Notes Treatment Notes Treatment Clinical Notes Mar, Lower abdominal pain (ICD-10 - R10.30) [facility] Other 12-27-2023 Evaluation note* Encounter Date Diagnosis [...] - R68.81) Mar, Bloating (ICD-10 - R14.0) [facility] Other 07-27-2023 Evaluation note* Encounter Date Diagnosis [...] a time. Pt advised to start probiotic ([employer]) Pt RTO 3 MONTHS [facility] Other 06-07-2023 Procedure noteFirTwin City HospitalEvaluation + Plan note No data available for this section [facility] Dawn Evaluation noteNo assessment information available [facility] Work Phone: Evaluation noteNo [facility] mPort[facility] Other Evaluation note* Diagnosis Fissure in ano Anal fissure documented in this encounter [facility]* Diagnosis Fissure in ano- Primary Anal fissure documented in this encounter [facility]* Diagnosis Onset Date Resolution Status Cirrhosis acute Dyspepsia and disorder of function of stomach acute Emesis acute Esophageal dysmotility acute [facility] Work Phone: Evaluation note* Diagnosis Age-related nuclear cataract of both eyes- [facility] Laennec's cirrhosis (HCC)- Primary Alcoholic cirrhosis of liver [facility] Diagnosis Cirrhosis of liver with ascites, unspecified hepatic cirrhosis type (CMS/HCC)- Primary Dizziness Dizziness and giddiness Abdominal distension Flatulence, eructation, and gas pain QUESADA (dyspnea on exertion) Other dyspnea and respiratory abnormality Gastroesophageal reflux disease without esophagitis Esophageal reflux Other ascites Secondary esophageal varices without bleeding (CMS/HCC) [facility] Diagnosis Pleural effusion associated with hepatic disorder- Primary Other specified forms of effusion, except tuberculous Shortness of breath Lesion of liver greater than 1 cm in diameter Type 2 diabetes mellitus without complication, without long-term current use of insulin (HCC) Encounter for screening for malignant neoplasm of prostate Special screening for malignant neoplasm of prostate Alcoholic cirrhosis of liver with ascites (HCC) Alcoholic cirrhosis of liver Liver transplant candidate Metabolic dysfunction-associated steatotic liver disease (MASLD) [facility] Diagnosis Encounter for education- Primary Counseling NOS [facility] Diagnosis Pleural effusion associated with hepatic disorder Other specified forms of effusion, except tuberculous Shortness of breath Lesion of liver greater than 1 cm in diameter Encounter for screening for malignant neoplasm of prostate Special screening for malignant neoplasm of prostate Alcoholic cirrhosis of liver with ascites (HCC) Alcoholic cirrhosis of liver Liver transplant candidate Metabolic dysfunction-associated steatotic liver disease (MASLD) Liver transplant candidate- Primary Pleural effusion associated with hepatic disorder Other specified forms of effusion, except tuberculous Shortness of breath Lesion of liver greater than 1 cm in diameter Alcoholic cirrhosis of liver with ascites (HCC) Alcoholic cirrhosis of liver Metabolic dysfunction-associated steatotic liver disease (MASLD) [facility] Dietary counseling and surveillance- Primary Dietary surveillance and counseling Lesion of liver greater than 1 cm in diameter Alcoholic cirrhosis of liver with ascites (HCC) Alcoholic cirrhosis of liver Liver transplant candidate Metabolic dysfunction-associated steatotic liver disease (MASLD) Awaiting organ transplant Awaiting organ transplant status Severe protein-calorie malnutrition (HCC) Other severe protein-calorie malnutrition [facility] Diagnosis Pleural effusion associated with hepatic disorder Other specified forms of effusion, except tuberculous Shortness of breath Lesion of liver greater than 1 cm in diameter Alcoholic cirrhosis of liver with ascites (HCC) Alcoholic cirrhosis of liver Liver transplant candidate Metabolic dysfunction-associated steatotic liver disease (MASLD) [facility] Diagnosis Pleural effusion associated with hepatic disorder Other specified forms of effusion, except tuberculous Shortness of breath Lesion of liver greater than 1 cm in diameter Encounter for screening for malignant neoplasm of prostate Special screening for malignant neoplasm of prostate Alcoholic cirrhosis of liver with ascites (HCC) Alcoholic cirrhosis of liver Liver transplant candidate Metabolic dysfunction-associated steatotic liver disease (MASLD) [facility] Diagnosis Encounter for medication review and counseling Other specified counseling Pleural effusion Unspecified pleural effusion [facility] Diagnosis Pleural effusion associated with hepatic disorder- Primary Other specified forms of effusion, except tuberculous Shortness of breath Alcoholic cirrhosis of liver with ascites (HCC) Alcoholic cirrhosis of liver Liver transplant candidate Pleural effusion Unspecified pleural effusion [facility] Diagnosis Thrombocytopenia (HCC)- Primary Thrombocytopenia, unspecified Pleural effusion associated with hepatic disorder Other specified forms of effusion, except tuberculous Shortness of breath Lesion of liver greater than 1 cm in diameter Alcoholic cirrhosis of liver with ascites (HCC) Alcoholic cirrhosis of liver Liver transplant candidate Metabolic dysfunction-associated steatotic liver disease (MASLD) [facility] Diagnosis Other ascites- Primary [facility] Diagnosis Shortness of breath Liver transplant candidate [facility] Diagnosis Pleural effusion associated with hepatic disorder Other specified forms of effusion, except tuberculous Shortness of breath Lesion of liver greater than 1 cm in diameter Alcoholic cirrhosis of liver with ascites (HCC) Alcoholic cirrhosis of liver Liver transplant candidate Metabolic dysfunction-associated steatotic liver disease (MASLD) Pleural effusion Unspecified pleural effusion [facility] Diagnosis Need for vaccination- Primary Need for prophylactic vaccination and inoculation against unspecified single disease Lesion of liver greater than 1 cm in diameter Alcoholic cirrhosis of liver with ascites (HCC) Alcoholic cirrhosis of liver Liver transplant candidate Metabolic dysfunction-associated steatotic liver disease (MASLD) Pre-transplant evaluation for chronic liver disease Other specified pre-operative examination Pleural effusion Unspecified pleural effusion [facility]- Primary Pleural effusion Unspecified pleural effusion [facility] Diagnosis Alcoholic cirrhosis of liver with ascites (HCC)- Primary Alcoholic cirrhosis of liver Liver transplant candidate Type 2 diabetes mellitus without complication, without long-term current use of insulin (HCC) Encounter for education about transplantation Pre-transplant evaluation for liver transplant Portal hypertension (HCC) Portal hypertension Hepatic encephalopathy (HCC) Hepatic encephalopathy Umbilical hernia without obstruction or gangrene Umbilical hernia without mention of obstruction or gangrene Personal history of other malignant neoplasm of skin Pleural effusion Unspecified pleural effusion [facility] Diagnosis Cirrhosis of liver without ascites, unspecified hepatic cirrhosis type (HCC)- Primary Pleural effusion Unspecified pleural effusion [facility] Diagnosis Liver mass- Primary Unspecified disorder of liver Low back pain, unspecified back pain laterality, unspecified chronicity, unspecified whether sciatica present Pleural effusion Unspecified pleural effusion [facility] Diagnosis Primary hypertension- Primary Unspecified essential hypertension Pleural effusion Unspecified pleural effusion [facility] Diagnosis Dyspnea, unspecified type- Primary Pleural effusion Unspecified pleural effusion [facility] Diagnosis Dyspnea, unspecified type Pleural effusion Unspecified pleural effusion [facility]* Diagnosis Other ascites- Primary Pleural effusion Unspecified pleural effusion [facility] Diagnosis Pleural effusion associated with hepatic disorder Other specified forms of effusion, except tuberculous Shortness of breath Lesion of liver greater than 1 cm in diameter Alcoholic cirrhosis of liver with ascites (HCC) Alcoholic cirrhosis of liver Liver transplant candidate Metabolic dysfunction-associated steatotic liver disease (MASLD) Pleural effusion Unspecified pleural effusion documented in this encounter [facility] note* Diagnosis Unilateral inguinal hernia without obstruction or gangrene, recurrence not specified- Primary Pleural effusion Unspecified pleural effusion documented in this encounter [facility] note* Diagnosis Liver transplant candidate- Primary Pleural effusion Unspecified pleural effusion documented in this encounter [facility] note* Diagnosis Pleural effusion associated with hepatic disorder- Primary Other specified forms of effusion, except tuberculous documented in this encounter [facility] note* Diagnosis Pleural effusion associated with hepatic disorder- Primary Other specified forms of effusion, except tuberculous [facility] Diagnosis Coronary artery disease involving [place] coronary artery of [place] heart, unspecified whether angina present- Primary [facility]* Diagnosis Other ascites documented in this encounter [facility] note* Diagnosis Liver transplant candidate- Primary documented in this encounter [facility] note* Diagnosis Unilateral inguinal hernia without obstruction or gangrene, recurrence not specified documented in this encounter [facility] note* Diagnosis Low back pain, unspecified back pain laterality, unspecified chronicity, unspecified whether sciatica present documented in this encounter [facility] note* Diagnosis Low back pain, unspecified back pain laterality, unspecified chronicity, unspecified whether sciatica present documented in this encounter [facility] note* Diagnosis Low back pain, unspecified back pain laterality, unspecified chronicity, unspecified whether sciatica present [facility]* Diagnosis Pathological fracture, other site, initial encounter for fracture- Primary documented in this encounter [facility] note* Diagnosis Other ascites- Primary [facility]* Diagnosis Liver transplant candidate- Primary Pleural effusion Unspecified pleural effusion documented in this encounter [facility] note* Diagnosis Onset Date Resolution Status Admit Date Cirrhosis acute June 19 5 11:48am [facility] Work Phone: [facility] note* Diagnosis Other ascites- Primary Pleural effusion Unspecified pleural effusion documented in this encounter [facility] note* Diagnosis Pathological fracture, other site, initial encounter for fracture documented in this encounter [facility] note* Diagnosis Other ascites documented in this encounter [facility] note* Diagnosis 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 Secondary malignant neoplasm of bone and bone marrow [facility]* Diagnosis Metastatic malignant neoplasm, unspecified site (HCC)- Primary [facility]* Diagnosis Hepatocellular carcinoma (HCC)- Primary Malignant neoplasm of liver, primary [facility]* Diagnosis Cirrhosis of liver without ascites, unspecified hepatic cirrhosis type (HCC)- Primary documented in this encounter [facility] note* Diagnosis Encounter for screening colonoscopy- Primary Special screening for malignant neoplasms, colon [facility]* Diagnosis Cirrhosis of liver without ascites, unspecified hepatic cirrhosis type (HCC)- Primary Liver transplant candidate Lesion of liver greater than 1 cm in diameter Alcoholic cirrhosis of liver with ascites (HCC) Alcoholic cirrhosis of liver [facility]* Diagnosis Aortic root dilatation (CMS/HCC)- Primary Thoracic aneurysm without mention of rupture Cirrhosis of liver with ascites, unspecified hepatic cirrhosis type (CMS/HCC) QUESADA (dyspnea on exertion) Other dyspnea and respiratory abnormality Alcoholic cirrhosis of liver with ascites (CMS/HCC) Other acute postprocedural pain- Primary Type 2 diabetes mellitus with hyperglycemia, without long-term current use of insulin (CMS/HCC) documented in this encounter [facility] note* Diagnosis Abnormal bone scan of thoracic spine- Primary Nonspecific abnormal results of other specified function study [facility]* Diagnosis Other ascites- Primary [facility]* Diagnosis Laennec's cirrhosis (HCC)- Primary Alcoholic cirrhosis of liver [facility]* Diagnosis Liver transplant candidate- Primary [facility]* Diagnosis Hepatic encephalopathy (HCC)- Primary Hepatic encephalopathy Decompensated cirrhosis (HCC) Pre-operative clearance Preoperative examination, unspecified [facility]* Diagnosis Liver transplant candidate- Primary Alcoholic cirrhosis of liver with ascites (HCC) Alcoholic cirrhosis of liver [facility]* Diagnosis Hepatic encephalopathy (HCC)- Primary Hepatic encephalopathy Decompensated cirrhosis (HCC) Ascites due to alcoholic cirrhosis (HCC) Pleural effusion Unspecified pleural effusion Hepatocellular carcinoma (HCC) Malignant neoplasm of liver, primary Pleural effusion Unspecified pleural effusion Chronic kidney disease Chronic kidney disease, unspecified Status post liver transplant (HCC) Liver replaced by transplant Acute blood loss anemia (ABLA) Post-op pain Other acute postoperative pain Hyponatremia Hyposmolality and/or hyponatremia Ileus (HCC) Paralytic ileus Fluid overload- Primary Other fluid overload Status post liver transplant (HCC) Liver replaced by transplant Pleural effusion Unspecified pleural effusion Vertigo Dizziness and giddiness Biliary stricture of transplanted liver (HCC) Complications of transplanted liver Biliary stone of transplanted liver (HCC) Complications of transplanted liver Anemia due to multiple mechanisms Anemia, unspecified GERD (gastroesophageal reflux disease) Esophageal reflux Immunosuppression (HCC) Unspecified disorder of immune mechanism Status post liver transplantation (HCC) Liver replaced by transplant Shortness of breath Severe protein-calorie malnutrition (HCC) Other severe protein-calorie malnutrition Cytomegalovirus (CMV) viremia (HCC) Cytomegaloviral disease Chest pain on breathing Painful respiration VRE (vancomycin-resistant Enterococci) infection Streptococcus infection in conditions classified elsewhere and of unspecified site, group D Vertigo Dizziness and giddiness Chronic bilateral low back pain without sciatica Nausea & vomiting Nausea with vomiting Biliary stricture of transplanted liver (HCC) Complications of transplanted liver Compression fracture of cervical spine, non-traumatic, with delayed healing, subsequent encounter- Primary Generalized abdominal pain Abdominal pain, generalized [facility] Diagnosis Hepatic encephalopathy (HCC)- Primary Hepatic encephalopathy Decompensated cirrhosis (HCC) Ascites due to alcoholic cirrhosis (HCC) Pleural effusion Unspecified pleural effusion Hepatocellular carcinoma (HCC) Malignant neoplasm of liver, primary Pleural effusion Unspecified pleural effusion Chronic kidney disease Chronic kidney disease, unspecified Status post liver transplant (HCC) Liver replaced by transplant Acute blood loss anemia (ABLA) Post-op pain Other acute postoperative pain Hyponatremia Hyposmolality and/or hyponatremia Ileus (HCC) Paralytic ileus Fluid overload- Primary Other fluid overload Status post liver transplant (HCC) Liver replaced by transplant Pleural effusion Unspecified pleural effusion Vertigo Dizziness and giddiness Biliary stricture of transplanted liver (HCC) Complications of transplanted liver Biliary stone of transplanted liver (HCC) Complications of transplanted liver Anemia due to multiple mechanisms Anemia, unspecified GERD (gastroesophageal reflux disease) Esophageal reflux Immunosuppression (HCC) Unspecified disorder of immune mechanism Status post liver transplantation (HCC) Liver replaced by transplant Shortness of breath Severe protein-calorie malnutrition (HCC) Other severe protein-calorie malnutrition Cytomegalovirus (CMV) viremia (HCC) Cytomegaloviral disease Chest pain on breathing Painful respiration VRE (vancomycin-resistant Enterococci) infection Streptococcus infection in conditions classified elsewhere and of unspecified site, group D Vertigo Dizziness and giddiness Chronic bilateral low back pain without sciatica Nausea & vomiting Nausea with vomiting Biliary stricture of transplanted liver (HCC) Complications of transplanted liver Bile duct stricture (HCC)- Primary Obstruction of bile duct [facility] Diagnosis Hepatic encephalopathy (HCC)- Primary Hepatic encephalopathy Decompensated cirrhosis (HCC) Ascites due to alcoholic cirrhosis (HCC) Pleural effusion Unspecified pleural effusion Hepatocellular carcinoma (HCC) Malignant neoplasm of liver, primary Pleural effusion Unspecified pleural effusion Chronic kidney disease Chronic kidney disease, unspecified Status post liver transplant (HCC) Liver replaced by transplant Acute blood loss anemia (ABLA) Post-op pain Other acute postoperative pain Hyponatremia Hyposmolality and/or hyponatremia Ileus (HCC) Paralytic ileus Fluid overload- Primary Other fluid overload Status post liver transplant (HCC) Liver replaced by transplant Pleural effusion Unspecified pleural effusion Vertigo Dizziness and giddiness Biliary stricture of transplanted liver (HCC) Complications of transplanted liver Biliary stone of transplanted liver (HCC) Complications of transplanted liver Anemia due to multiple mechanisms Anemia, unspecified GERD (gastroesophageal reflux disease) Esophageal reflux Immunosuppression (HCC) Unspecified disorder of immune mechanism Status post liver transplantation (HCC) Liver replaced by transplant Shortness of breath Severe protein-calorie malnutrition (HCC) Other severe protein-calorie malnutrition Cytomegalovirus (CMV) viremia (HCC) Cytomegaloviral disease Chest pain on breathing Painful respiration VRE (vancomycin-resistant Enterococci) infection Streptococcus infection in conditions classified elsewhere and of unspecified site, group D Vertigo Dizziness and giddiness Chronic bilateral low back pain without sciatica Nausea & vomiting Nausea with vomiting Biliary stricture of transplanted liver (HCC) Complications of transplanted liver VRE infection (vancomycin resistant Enterococcus)- Primary Streptococcus infection in conditions classified elsewhere and of unspecified site, group D [facility] Author Lex Carroll [facility] September 21, 2022 8:04am Note Date/Time September 21, 2022 8:04a [place] [address] Gastroenterology H&P Signed Patient: Loyd Blandon MR#: [id number] : 1955 Acct:[id number] Age/Sex: 67 / M Adm Date: 3 Loc: Room: Type: [facility] Attending Dr: Lex Carroll MD Copies to: MD Sanjay Triana II, MD~ Date of Service: 09/21/2022 [...] <Electronically signed by Lex Carroll MD> 09/21/22 08 [facility] Work Phone: History general Narrative - Reported* Type Description Date Medical History hypertension Medical History GERD Surgical History gallbladder Surgical History elbow surgery Surgical History mesh placement Site9 Other Hospital Discharge instructions Additional Instructions DISCHARGE [...] NOT operate machinery such as power tools, [employer] mowers, snow blowers, sewing machines, etc. for [...] problems. -Follow up with PCP. -Office number [phone].[facility] Work Phone: Hospital Discharge instructions No data available for this section [facility] Progress note No data available for this section [facility] Reason for referral (narrative)* Outpatient Procedure (Routine) - Authorized Specialty Diagnoses / Procedures Referred By Rogelio mann Referred To [facility] Diagnoses Shortness of breath Liver transplant candidate Procedures ABDOM PARACENTESIS DX/THER W IMAGING GUIDANCE ABDOM PARACENTESIS DX/THER W IMAGING GUIDANCE Dmitri Reyes MD [address] [place] [address] [address] Referral ID Status Reason Start Date Expiration Date Visits Requested Visits Authorized [id number] Authorized Auto-Generat ed Referral 04/29/2024 04/29/2025 1 1 [facility] for referral (narrative)* Outpatient Procedure (Routine) - Closed Specialty Diagnoses / Procedures Referred By Rogelio mann Referred To Contact [facility] Diagnoses Shortness of breath Liver transplant candidate Procedures ABDOM PARACENTESIS DX/THER W IMAGING GUIDANCE ABDOM PARACENTESIS DX/THER W IMAGING GUIDANCE Dmitri Reyes MD [address] [place] [address] [address] Referral ID Status Reason Start Date Expiration Date V isits Requested Visits Authorized [id number] Closed Auto-Generate d Referral 04/29/2024 04/29/2025 1 1 [facility] for referral (narrative)* Outpatient Procedure (Routine) - Authorized Specialty Diagnoses / Procedures Referred By Rogelio t Referred To [facility] Diagnoses Pleural effusion associated with hepatic disorder Shortness of breath Lesion of liver greater than 1 cm in diameter Alcoholic cirrhosis of liver with ascites (HCC) Liver transplant candidate Metabolic dysfunction-associated steatotic liver disease (MASLD) Procedures ECG COMPLETE ECG ROUTINE ECG W/LEAST 12 LDS W/I&R Barzilai, Ben[place], MD [address] [place] [address] [address] Referral ID Status Reason Start Date Expiration Date Visits Requested Visits Authorized [id number] Authorized Auto-Generat ed Referral 05/02/2024 05/02/2025 1 1 * Transition of Care (Routine) - Authorized Specialty Diagnoses / Procedures Referred By Contac t Referred To Contact [facility] Diagnoses Pleural effusion associated with hepatic disorder Shortness of breath Lesion of liver greater than 1 cm in diameter Alcoholic cirrhosis of liver with ascites (HCC) Liver transplant candidate Metabolic dysfunction-associated steatotic liver disease (MASLD) Procedures CARDIOVASCULAR MEDICINE [place] [address] [place] [id number] [address] [address] Referral ID Status Reason Start Date Expiration Date Visits Requested Visits Authorized [id number] Authorized PCP Requested Referral 10/30/2024 05/02/2025 1 1 [facility] for referral (narrative)* Outpatient Procedure (Routine) - Authorized Specialty Diagnoses / Procedures Referred By Contac t Referred To Contact [facility] [place] Diagnoses Other ascites Procedures ABDOM PARACENTESIS DX/THER W IMAGING GUIDANCE ABDOM PARACENTESIS DX/THER W IMAGING GUIDANCE Dmitri Reyes MD [address] [place] [address] [address] Referral ID Status Reason Start Date Expiration Date Visits Requested Visits Authorized [id number] Authorized Auto-Generat ed Referral 05/24/2024 05/24/2025 1 1 [facility] for referral (narrative)* Outpatient Procedure (Routine) - New Request Specialty Diagnoses / Procedures Referred By Rogelio mann Referred To [facility] [place] Diagnoses Pleural effusion associated with hepatic disorder Procedures LUNG DIFFUSION CAPACITY (DLCO) LUNG DIFFUSION CAPACITY (DLCO) DIFFUSING CAPACITY Cheri Guido MD [id number] [place] [address] Referral ID Status Reason Start Date Expiration Date Visits Requested Visits Authorized [id number] New Request Auto-Generat ed Referral 05/23/2024 06/22/2025 1 1 * Outpatient Procedure (Routine) - New Request Specialty Diagnoses / Procedures Referred By Rogelio mann Referred To Contact [facility] [place] Diagnoses Pleural effusion associated with hepatic disorder Procedures SPIROMETRY WITH DILATOR IF OBSTRUCTED SPIROMETRY WITH DILATOR IF OBSTRUCTED BRNCDILAT RSPSE SPMTRY PRE&POST-BRNCDILAT ADMN Cheri Guido MD [address] [place] [address] [place] [address] Referral ID Status Reason Start Date Expiration Date Visits Requested Visits Authorized [id number] New Request Auto-Generat ed Referral 05/23/2024 06/22/2025 1 1 [facility] for visit Narrative* Outpatient Procedure (Routine) - Closed Specialty Diagnoses / Procedures Referred By Rogelio mann Referred To Contact [facility] [place] Diagnoses Shortness of breath Liver transplant candidate Procedures ABDOM PARACENTESIS DX/THER W IMAGING GUIDANCE ABDOM PARACENTESIS DX/THER W IMAGING GUIDANCE Dmitri Reyes MD [address] [place] [address] [place] [address] Referral ID Status Reason Start Date Expiration Date V isits Requested Visits Authorized [id number] Closed Auto-Generate d Referral 04/29/2024 04/29/2025 1 1 [facility] for visit Narrative* Auth/Cert (Routine) Specialty Diagnoses / Procedures Referred By Rogelio mann Referred To Contact ADMITTING Diagnoses 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] Procedures THORACENTESIS NEEDLE/CATH PLEURA W/IMAGING THORACENTESIS NEEDLE OR CATHETER ASPIRATION OF THE PLEURAL SPACE W IMAGING GUIDANCE Admitting [address] [address] Referral ID Status Reason Start Date Expiration Date Visits Re quested Visits Authorized [id number] 1 1 [facility] for visit Narrative* Outpatient Procedure (Routine) - Closed Specialty Diagnoses / Procedures Referred By Rogelio mann Referred To Contact [facility] Diagnoses Other ascites Procedures ABDOM PARACENTESIS DX/THER W IMAGING GUIDANCE ABDOM PARACENTESIS DX/THER W IMAGING GUIDANCE Dmitri Reyes MD [address] [place] [address] Phone: tel: fax: [facility] [address] [place] [address] Referral ID Status Reason Start Date Expiration Date V isits Requested Visits Authorized [id number] Closed Auto-Generate d Referral 05/24/2024 05/24/2025 1 1 [facility] for visit Narrative* Diagnostic Procedure Only (Routine) - Closed Specialty Diagnoses / Procedures Referred By Rogelio mann Referred To Contact [facility] IM[facility] Diagnoses Unilateral inguinal hernia without obstruction or gangrene, recurrence not specified Procedures US PELVIS LTD US PELVIC NONOBSTETRIC IMAGE DCMTN LIMITED/F/U Dmitri Reyes MD [address] [place] [address] Phone: tel: fax: [facility] [place] [address] Referral ID Status Reason Start Date Expiration Date V isits Requested Visits Authorized [id number] Closed Auto-Generate d Referral 05/30/2024 06/29/2025 1 1 [facility] for visit Narrative* MRI/CT (Routine) - Closed Specialty Diagnoses / Procedures Referred By Rogelio mann Referred To Contact [facility] IMAGING Diagnoses Low back pain, unspecified back pain laterality, unspecified chronicity, unspecified whether sciatica present Procedures MRI THORACIC SPINE WO/W IVCON MRI SPINAL CANAL THORACIC W/O & W/CONTR MATRL Dmitri Reyes MD [address] [place] [address] Phone: tel: fax: [facility] [place] [address] Referral ID Status Reason Start Date Expiration Date V isits Requested Visits Authorized [id number] Closed Auto-Generate d Referral 05/18/2024 06/17/2025 1 1 [facility] for visit Narrative* MRI/CT (Routine) - Closed Specialty Diagnoses / Procedures Referred By Contac t Referred To Contact [facility] IMAGING Diagnoses Low back pain, unspecified back pain laterality, unspecified chronicity, unspecified whether sciatica present Procedures MRI LUMBAR SPINE WO/W IVCON MRI SPINAL CANAL LUMBAR W/O & W/CONTR Dmitri Thomas MD [address] [id number] Phone: tel: fax: [facility] [place] [address] Referral ID Status Reason Start Date Expiration Date V isits Requested Visits Authorized [id number] Closed Auto-Generate d Referral 05/18/2024 06/17/2025 1 1 [facility] for visit Narrative* MRI/CT (Routine) - Closed Specialty Diagnoses / Procedures Referred By Contac t Referred To Contact [facility] Diagnoses Pathological fracture, other site, initial encounter for fracture Procedures MRI THORACIC SPINE WO IVCON MRI SPINAL CANAL THORACIC W/O CONTRAST Dmitri Thomas MD [address] [id number] Phone: tel: fax: [facility] [place] [address] Referral ID Status Reason Start Date Expiration Date V isits Requested Visits Authorized [id number] Closed Auto-Generate d Referral 06/10/2024 07/10/2025 1 1 [facility] for visit Narrative* Auth/Cert (Routine) Specialty Diagnoses / Procedures Referred By Contac t Referred To Contact ADMITTING Diagnoses Pleural effusion Pleural effusion [J90] Procedures THORACENTESIS NEEDLE/CATH PLEURA W/IMAGING THORACENTESIS NEEDLE OR CATHETER ASPIRATION OF THE PLEURAL SPACE W IMAGING GUIDANCE Admitting [address] [address] Referral ID Status Reason Start Date Expiration Date Visits Re quested Visits Authorized [id number] 1 1 [facility] for visit Narrative* Auth/Cert (Routine) Specialty Diagnoses / Procedures Referred By Rogelio mann Referred To Contact HOSP INPATIENT Diagnoses Hepatic encephalopathy (HCC) Procedures NA [facility] H081 [address] [id number] Phone: tel: Referral ID Status Reason Start Date Expiration Date Visits Re quested Visits Authorized [id number] 1 1 [facility] for visit Narrative* Auth/Cert - New Request Specialty Diagnoses / Procedures Referred By Rogelio mann Referred To Contact [address] [address] Referral ID Status Reason Start Date Expiration Date V isits Requested Visits Authorized New Request 09/30/2024 11/29/2024 [facility] for visit Narrative* Outpatient Procedure (Routine) - Closed Specialty Diagnoses / Procedures Referred By Rogelio mann Referred To Contact [facility] Diagnoses 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) Procedures ERCP ERCP BILIARY/PANC DUCT STENT EXCHANGE W/DIL&WIRE Nick Cruz PA-C [address] [place] [address] Phone: tel: fax: [facility] [address] [place] [address] Referral ID Status Reason Start Date Expiration Date V isits Requested Visits Authorized [id number] Closed Auto-Generate d Referral 10/30/2024 10/30/2025 1 1 [facility] for visit Narrative* Auth/Cert - New Request Specialty Diagnoses / Procedures Referred By Rogelio mann Referred To Contact [address] [address] Referral ID Status Reason Start Date Expiration Date V isits Requested Visits Authorized New Request 10/31/2024 12/30/2024 [facility] Chief Complaint and Reason for Visit Chief Complaint Admit Date K30.June 19, 2024 11:4 8am k30.July 30, 2024 10: 15am Reason for Visit Admit Date Cirrhosis June 19, 2024 11:4 8am Chief Complaint Recinos's Esophagus Chief Complaint Recinos's [...] Unknown Unknown Chief Complaint Unknown Unknown Unknown Chief Complaint Admit Date K30.31 June 19, 2024 11:4 8am Advance Directives No Advanced Directives Records FoundDocuments on File Type Date 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 Advance Directive(s) 10/08/2024 3:04 PM Date Activated Date Inactivated Comments 09/09/2024 7:40 PM 09/29/2024 8:28 PM Question Answer Comments Full Code Order Discussed With: Discussion Not M edically Appropriate Date Activated Date Inactivated Comments 08/23/2024 5:32 PM 09/09/2024 4:42 PM Question Answer Comments Full Code Order Discussed With: Patient Advance Directive Response Recorded Date/ Time Advance Directives No September 16 3:42pm Advance Directive Response Recorded Date/ Time Advance Directives No September 16 2:42pm Date Activated Date Inactivated Comments 08/23/2024 5:32 PM Question Answer Comments Full Code Order Discussed With: Patient Date Activated Date Inactivated Comments 08/23/2024 5:32 PM Question Answer Comments Full Code Order Discussed With: Patient Date Activated Date Inactivated Comments 09/09/2024 7:40 PM Documents on File Type Date Recorded 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 Advance Directive(s) 10/08/2024 3:04 PM Date Activated Date Inactivated Comments 09/09/2024 7:40 PM 09/29/2024 8:28 PM Question Answer Comments Full Code Order Discussed With: Discussion Not M edically Appropriate Date Activated Date Inactivated Comments 08/23/2024 5:32 PM 09/09/2024 4:42 PM Question Answer Comments Full Code Order Discussed With: Patient Date Activated Date Inactivated Comments 10/16/2024 1:21 PM Date Activated Date Inactivated Comments 09/09/2024 7:40 PM 09/29/2024 8:28 PM Question Answer Comments Full Code Order Discussed With: Discussion Not M edically Appropriate Date Activated Date Inactivated Comments 08/23/2024 5:32 PM 09/09/2024 4:42 PM Question Answer Comments Full Code Order Discussed With: Patient Date Activated Date Inactivated Comments 10/16/2024 1:21 PM 10/30/2024 10:09 PM Date Activated Date Inactivated Comments 10/16/2024 1:21 PM 10/30/2024 10:09 PM Date Activated Date Inactivated Comments 09/09/2024 7:40 PM 09/29/2024 8:28 PM Question Answer Comments Full Code Order Discussed With: Discussion Not M edically Appropriate Date Activated Date Inactivated Comments 08/23/2024 5:32 PM 09/09/2024 4:42 PM Question Answer Comments Full Code Order Discussed With: Patient Family History No Family History Records Found Relationship Condition Age at Onset Recorded Date/T nhi Not Specified No pertinent family history Unknown father Unknown Hypertension Unknown family member Hypertension Unknown Not Specified Unknown Summary Purpose Reason for Referral Specialty Diagnoses / Procedures Referred By Contac t Referred To Contact [facility] IMAGING Diagnoses Low back pain, unspecified back pain laterality, unspecified chronicity, unspecified whether sciatica present Procedures MRI LUMBAR SPINE WO/W IVCON MRI SPINAL CANAL LUMBAR W/O & W/CONTR Dmitri Thomas MD [address] [facility] [place] [address] [facility] [place] [address] Referral ID Status Reason Start Date Expiration Date Visits Requested Visits Authorized [id number] New Request Auto-Generat ed Referral 05/18/2024 06/17/2025 1 1 Specialty Diagnoses / Procedures Referred By Contac t Referred To Contact MR IMAGING Diagnoses Low back pain, unspecified back pain laterality, unspecified chronicity, unspecified whether sciatica present Procedures MRI THORACIC SPINE WO/W IVCON MRI SPINAL CANAL THORACIC W/O & W/CONTR Dmitri Thomas MD [facility] [place] [address] Mr Imaging [facility]95 Referral ID Status Reason Start Date Expiration Date Visits Requested Visits Authorized [id number] New Request Auto-Generat ed Referral 05/18/2024 06/17/2025 1 1 Specialty Diagnoses / Procedures Referred By Contac t Referred To Contact [facility] IMAGING Diagnoses Low back pain, unspecified back pain laterality, unspecified chronicity, unspecified whether sciatica present Procedures MRI CERVICAL SPINE WO/W IVCON MRI SPINAL CANAL CERVICAL W/O & W/CONTR MATRL Dmitri Reyes MD [address] [facility] [place] [address] Mr Imaging [place] [address] Referral ID Status Reason Start Date Expiration Date Visits Requested Visits Authorized [id number] New Request Auto-Generat ed Referral 05/18/2024 06/17/2025 1 1 Specialty Diagnoses / Procedures Referred By Contac t Referred To Contact [facility] IM[facility] Diagnoses Liver mass Procedures MRI LIVER WO/W IVCON MRI ABDOMEN W/O & W/CONTRAST MATERIAL Dmitri Reyes MD [address] [facility] [place] [address] Mr Imaging [place] [address] Referral ID Status Reason Start Date Expiration Date Visits Requested Visits Authorized [id number] New Request Auto-Generat ed Referral 08/15/2024 06/17/2025 1 1 Specialty Diagnoses / Procedures Referred By Contac t Referred To Contact [facility] Diagnoses Pleural effusion associated with hepatic disorder Shortness of breath Lesion of liver greater than 1 cm in diameter Alcoholic cirrhosis of liver with ascites (HCC) Liver transplant candidate Metabolic dysfunction-associated steatotic liver disease (MASLD) Procedures CONSULT TO PULM/CRITICAL CARE OFFICE/OUTPATIENT [facility] 60 MINUTES Dmitri Reyes MD [address] [facility] [place] [id number] Referral ID Status Reason Start Date Expiration Date Visits Requested Visits Authorized [id number] Authorized PCP Requested Referral 04/29/2024 04/23/2025 1 1 Specialty Diagnoses / Procedures Referred By Contac t Referred To Contact Cardiology Diagnoses Pleural effusion associated with hepatic disorder Shortness of breath Lesion of liver greater than 1 cm in diameter Alcoholic cirrhosis of liver with ascites (HCC) Liver transplant candidate Metabolic dysfunction-associated steatotic liver disease (MASLD) Procedures CONSULT TO CARDIOLOGY OFFICE/OUTPATIENT [facility] 60 MINUTES Dmitri Reyes MD [address] [facility] [place] [id number] Referral ID Status Reason Start Date Expiration Date Visits Requested Visits Authorized [id number] Authorized PCP Requested Referral 04/29/2024 04/23/2025 1 1 Specialty Diagnoses / Procedures Referred By Contac t Referred To Contact [facility] Diagnoses Pleural effusion associated with hepatic disorder Shortness of breath Lesion of liver greater than 1 cm in diameter Alcoholic cirrhosis of liver with ascites (HCC) Liver transplant candidate Metabolic dysfunction-associated steatotic liver disease (MASLD) Procedures SPIROMETRY BASELINE ONLY SPMTRY W/VC EXPIRATORY EDY W/WO MXML VOL VNTJ Dmitri Reyes MD [address] [place] [address] [facility] [place] [address] [place] [address] Referral ID Status Reason Start Date Expiration Date Visits Requested Visits Authorized [id number] Authorized Auto-Generat ed Referral 04/29/2024 05/23/2025 1 1 Specialty Diagnoses / Procedures Referred By Contac t Referred To Contact [facility] Diagnoses Lesion of liver greater than 1 cm in diameter Alcoholic cirrhosis of liver with ascites (HCC) Liver transplant candidate Metabolic dysfunction-associated steatotic liver disease (MASLD) Procedures ECHO ECHO TTHRC R-T 2D W/WOM-MODE COMPL SPEC&COLR D Dmitri Reyes MD [address] [place] [address] [address] Referral ID Status Reason Start Date Expiration Date Visits Requested Visits Authorized [id number] Authorized Auto-Generat ed Referral 04/29/2024 04/23/2025 1 1 Specialty Diagnoses / Procedures Referred By Contac t Referred To Contact CT IMAGING Diagnoses Lesion of liver greater than 1 cm in diameter Alcoholic cirrhosis of liver with ascites (HCC) Liver transplant candidate Metabolic dysfunction-associated steatotic liver disease (MASLD) Procedures CT LIVER W IVCON CT ABDOMEN W/CONTRAST Dmitri Reyes MD [address] [place] [address] Ct Imaging [facility]95 Referral ID Status Reason Start Date Expiration Date Visits Requested Visits Authorized [id number] Authorized Auto-Generat ed Referral 04/29/2024 05/23/2025 1 1 Specialty Diagnoses / Procedures Referred By Rogelio mann Referred To Contact CT IMAGING Diagnoses Pleural effusion associated with hepatic disorder Shortness of breath Lesion of liver greater than 1 cm in diameter Alcoholic cirrhosis of liver with ascites (HCC) Liver transplant candidate Metabolic dysfunction-associated steatotic liver disease (MASLD) Procedures CT CHEST WO IVCON DIAGNOSTIC COMPUTED TOMOGRAPHY THORAX W/O CNTRST Dmitri Reyes MD [address] [place] [address] Ct Imaging [place] [address] Referral ID Status Reason Start Date Expiration Date Visits Requested Visits Authorized [id number] Authorized Auto-Generat ed Referral 04/29/2024 05/23/2025 1 1 Specialty Diagnoses / Procedures Referred By Rogelio mann Referred To Contact Nutrition Diagnoses Lesion of liver greater than 1 cm in diameter Alcoholic cirrhosis of liver with ascites (HCC) Liver transplant candidate Metabolic dysfunction-associated steatotic liver disease (MASLD) Procedures CONSULT TO NUTRITION THERAPY MEDICAL NUTRITION ASSMT&IVNTJ INDIV EACH 15 MD Dmitri Reyes MD [address] [facility] [place] [address] Referral ID Status Reason Start Date Expiration Date Visits Requested Visits Authorized [id number] Authorized PCP Requested Referral 04/29/2024 04/23/2025 1 4 Specialty Diagnoses / Procedures Referred By Rogelio mann Referred To Contact Infectious Diseases Diagnoses Lesion of liver greater than 1 cm in diameter Alcoholic cirrhosis of liver with ascites (HCC) Liver transplant candidate Metabolic dysfunction-associated steatotic liver disease (MASLD) Procedures CONSULT TO INFECTIOUS DISEASES OFFICE/OUTPATIENT [facility] 60 MINUTES Dmitri Reyes MD [address] [facility] [place] [address] Referral ID Status Reason Start Date Expiration Date Visits Requested Visits Authorized [id number] Authorized PCP Requested Referral 04/29/2024 04/23/2025 1 1 Specialty Diagnoses / Procedures Referred By Rogelio mann Referred To Contact Anesthesiology Diagnoses Pleural effusion associated with hepatic disorder Shortness of breath Lesion of liver greater than 1 cm in diameter Alcoholic cirrhosis of liver with ascites (HCC) Liver transplant candidate Metabolic dysfunction-associated steatotic liver disease (MASLD) Procedures CONSULT TO ANESTHESIOLOGY OFFICE/OUTPATIENT [facility] 60 MINUTES Dmitri Reyes MD [address] [facility] [place] [address] Referral ID Status Reason Start Date Expiration Date Visits Requested Visits Authorized [id number] Authorized PCP Requested Referral 04/29/2024 04/23/2025 1 1 Specialty Diagnoses / Procedures Referred By Contac t Referred To Contact Diagnoses Pleural effusion associated with hepatic disorder Shortness of breath Lesion of liver greater than 1 cm in diameter Encounter for screening for malignant neoplasm of prostate Alcoholic cirrhosis of liver with ascites (HCC) Liver transplant candidate Metabolic dysfunction-associated steatotic liver disease (MASLD) Procedures CONSULT TO HEPATOLOGY OFFICE/OUTPATIENT [facility] 60 MINUTES Dmitri Reyes MD [address] [facility] [place] [address] Referral ID Status Reason Start Date Expiration Date Visits Requested Visits Authorized [id number] Authorized PCP Requested Referral 04/29/2024 04/23/2025 1 1 Specialty Diagnoses / Procedures Referred By Contac t Referred To Contact [facility] Diagnoses Lesion of liver greater than 1 cm in diameter Alcoholic cirrhosis of liver with ascites (HCC) Liver transplant candidate Metabolic dysfunction-associated steatotic liver disease (MASLD) Procedures ECG COMPLETE ECG ROUTINE ECG W/LEAST 12 LDS W/I&R Dmitri Reyes MD [address] [place] [address] [facility] [place] [address] [place] [address] Referral ID Status Reason Start Date Expiration Date Visits Requested Visits Authorized [id number] Authorized Auto-Generat ed Referral 04/29/2024 04/23/2025 1 1 Specialty Diagnoses / Procedures Referred By Contac t Referred To Contact Radiology Diagnoses Cirrhosis of liver with ascites, unspecified hepatic cirrhosis type (CMS/HCC) Dizziness QUESADA (dyspnea on exertion) Other ascites Procedures Transthoracic Echo (TTE) Complete Xuan Espino PA [address] [facility] [address] [place] [address] [facility] [address] [place] [address] Phone: [phone] Referral ID Status Reason Start Date Expiration Date Visits Requested Visits Authorized [id number] Incomplete Perform Procedure 12/13/2023 06/10/2024 1 1 Specialty Diagnoses / Procedures Referred By Rogelio mann Referred To Contact TRANSPLANT Diagnoses Laennec's cirrhosis (HCC) Procedures CONSULT TO [facility]ANSPLANT CENTER OFFICE/OUTPATIENT NEW HIGH MDM 60 MINUTES ECG ROUTINE ECG W/LEAST 12 LDS I&R ONLY ECHO TTHRC R-T 2D W/WOM-MODE COMPL SPEC&COLR D COLONOSCOPY W/BIOPSY SINGLE/MULTIPLE US ABDOMINAL REAL TIME W/IMAGE DOCUMENTATION ECHO TTHRC R-T 2D W/WO M-MODE COMPLETE REST&ST CYTP C/V AUTO THIN LYR PREPJ SCR MNL RESCR PHYS SCREENING MAMMOGRAM BILATERAL DXA BONE DENSITY STUDY SITES AXIAL SKEL OFFICE/OUTPATIENT NEW HIGH MDM [address] ABDOMEN W & W/O CONTRAST CT ANGIOGRAPHY CHEST W/CONTRAST/NONCONTRAST MRI ABDOMEN W/O & W/CONTRAST MATERIAL COLLECTION VENOUS BLOOD VENIPUNCTURE Ольга Marques MD, PhD [address] [place] [address] [facility] [address] [address] Referral ID Status Reason Start Date Expiration Date Visits Requested Visits Authorized [id number] Pending Review PCP Requested Referral Financial Clearance Required - [employer] 4 03/28/2025 99 [phone] Additional Source Comments Care Teams (unrecognized sec tion and content) Team Status: Active Member Role Status Dates Sanjay Robledo II MD Primary Care Provider Active Team Status: Inactive Member Role Status Dates Lex Carroll MD Attending Provider Active Sanjay Robledo II MD Primary Care Provider Active Team Status: Inactive Member Role Status Dates Sanjay Robledo II MD Primary Care Provider Active Lex Carroll MD Attending Provider Active Team Status: Inactive Member Role Status Dates Sanjay Robledo II MD Primary Care Provider Active Rick Ortega APRN Attending Provider Active Transfer Man Relationship Specialty Start Date End Date Sanjay Robledo MD [address] [facility] [address] [place] [address] PCP - [employer] 1/1/23 Sanjay Robledo MD [address] [place] [address] [place] [address] PCP - General Internal Medicine 11/23/22 Transfer Man Relationship Specialty Start Date End Date Sanjay Robledo MD [address] [place] [address] [place] [address] PCP - [employer]et 04/17/22 Sanjay Robledo MD [address] [place] [address] [place] [address] PCP - General Internal Medicine 11/23/22 Team Status: Inactive Member Role Status Dates Rick Ortega APRN Attending Provider Active Start: April 12, 2023 End: April 12, 2023 Team Status: Inactive Member Role Status Dates Sanjay Robledo II MD Primary Care Provider Active Start: April 12, 2023 End: April 12, 2023 Rick Ortega APRN Attending Provider Active Start: April 12, 2023 End: April 12, 2023 Team Status: Inactive Member Role Status Dates Sanjay Robledo II MD Primary Care Provider Active Start: April 26, 2023 End: April 26, 2023 Rick Ortega APRN Attending Provider Active Start: April 26, 2023 End: April 26, 2023 Team Status: Inactive Member Role Status Dates Sanjay Robledo II MD Primary Care Provider Active Start: May 23, 2023 End: May 23, 2023 Minh Griffith MD Attending Provider Active Start: May 23, 2023 End: May 23, 2023 Team Status: Inactive Member Role Status Dates Sanjay Robledo II MD Primary Care Provider Active Start: June 02, 2023 End: June 02, 2023 Brayan Alves DO Attending Provider Active Start: June 02, 2023 End: June 02, 2023 Team Status: Inactive Member Role Status Dates Sanjay Robledo II MD Primary Care Provider Active Start: June 13, 2023 End: June 13, 2023 Brayan Alves DO Attending Provider Active Start: June 13, 2023 End: June 13, 2023 Team Status: Inactive Member Role Status Dates Sanjay Robledo II MD Primary Care Provider Active Start: July 05, 2023 End: July 05, 2023 Rick Ortega APRN Attending Provider Active Start: July 05, 2023 End: July 05, 2023 Team Status: Inactive Member Role Status Dates Sanjay Robledo II MD Primary Care Provider Active Start: October 03, 2023 End: October 03, 2023 Ward Stern MD Attending Provider Active Start: October 03, 2023 End: October 03, 2023 Team Status: Inactive Member Role Status Dates Sanjay Robledo II MD Primary Care Provider Active Start: December 07, 2023 End: December 07, 2023 Devyn ANDRADE DO Attending Provider Active Start: December 07, 2023 End: December 07, 2023 Team Status: Inactive Member Role Status Dates Sanjay Robledo II MD Primary Care Provider Active Start: December 07, 2023 End: December 07, 2023 Ward Stern MD Attending Provider Active Start: December 07, 2023 End: December 07, 2023 Team Status: Inactive Member Role Status Dates Sanjay Robledo II MD Primary Care Provider Active Start: December 12, 2023 End: December 12, 2023 Devyn ANDRADE DO Attending Provider Active Start: December 12, 2023 End: December 12, 2023 Team Status: Inactive Member Role Status Dates Sanjay Robledo II MD Primary Care Provider Active Start: December 08, 2023 End: December 08, 2023 Devyn ANDRADE DO Attending Provider Active Start: December 08, 2023 End: December 08, 2023 Team Status: Active Member Role Status Dates Sanjay Robledo II MD Primary Care Provider Active Start: December 07, 2023 Jason Wang DO Attending Provider Active Sta rt: December 07, 2023 Team Status: Inactive Member Role Status Dates Kin Hernandez MD Attending Provider Active Star t: January 03, 2024 End: January 03, 2024 Transfer Man Relationship Specialty Start Date End Date Sanjay Robledo MD [address] [place] [address] PCP - [employer] 04/17/22 Sanjay Robledo MD [address] [place] [address] [place] [address] PCP - General Internal Medicine 11/23/22 Transfer Man Relationship Specialty Start Date End Date Sanjay Robledo MD [address] [place] [address] [place] [address] PCP - [employer] 04/17/22 Sanjay Robledo MD [address] [place] [address] [place] [address] PCP - General Internal Medicine 11/23/22 Transfer Man Relationship Specialty Start Date End Date Sanjay Robledo MD [address] [place] [address] [place] [address] PCP - [employer] 04/17/22 Sanjay Robledo MD [address] [place] [address] [place] [address] PCP - General Internal Medicine 11/23/22 Transfer Man Relationship Specialty Start Date End Date Irena Johnson MD [address] [facility] [place] [address] [facility] [place] [phone] Referring Gastroenterology 03/12/24 Transfer Man Relationship Specialty Start Date End Date Sanjay Robledo MD [address] [place] [address] [place] [address] PCP - [employer] 04/17/22 Sanjay Robledo MD [address] [place] [address] [place] [address] PCP - General Internal Medicine 11/23/22 Transfer Man Relationship Specialty Start Date End Date Irena Johnson MD [address] [place] [address] [facility] [address] Referring Gastroenterology 03/12/24 Transfer Man Relationship Specialty Start Date End Date Irena Johnson MD [address] [place] [address] [facility] [address] Referring Gastroenterology 03/12/24 Transfer Man Relationship Specialty Start Date End Date Sanjay Robledo MD [address] [place] [address] [place] [address] PCP - [employer] 04/17/22 Sanjay Robledo MD [address] [place] [address] [place] [address] PCP - General Internal Medicine 11/23/22 Transfer Man Relationship Specialty Start Date End Date Sanjay Robledo MD [address] [place] [address] [place] [address] PCP - [employer] 04/17/22 Sanjay Robledo MD [address] [place] [address] [place] [address] PCP - General Internal Medicine 11/23/22 Transfer Man Relationship Specialty Start Date End Date Sanjay Robledo MD [address] [place] [address] [place] [address] PCP - [employer] 04/17/22 Sanjay Robledo MD [address] [place] [address] [place] [address] PCP - General Internal Medicine 11/23/22 Transfer Man Relationship Specialty Start Date End Date Irena Johnson MD [address] [place] [address] [facility] [address] Referring Gastroenterology 03/12/24 Transfer Man Relationship Specialty Start Date End Date Irena Johnson MD [address] [place] [address] [facility] [address] Referring Gastroenterology 03/12/24 Transfer Man Relationship Specialty Start Date End Date Irena Johnson MD [address] [place] [address] [place] [address], [place] [address] Referring Gastroenterology 03/12/24 Transfer Man Relationship Specialty Start Date End Date Irena Johnson MD [address] [place] [facility] [address] Referring Gastroenterology 03/12/24 Transfer Man Relationship Specialty Start Date End Date Irena Johnson MD [address] [place] [facility] [address] Referring Gastroenterology 03/12/24 Transfer Man Relationship Specialty Start Date End Date Irena Johnson MD [address] [place] [facility] [address] Referring Gastroenterology 03/12/24 Transfer Man Relationship Specialty Start Date End Date Irena Johnson MD [address] [place] [address] [facility] [address] Referring Gastroenterology 03/12/24 Transfer Man Relationship Specialty Start Date End Date Irena Johnson MD [address] [place] [address] Referring Gastroenterology 03/12/24 Transfer Man Relationship Specialty Start Date End Date Irena Johnson MD [address] [place] [address] Referring Gastroenterology 03/12/24 Transfer Man Relationship Specialty Start Date End Date Irena Johnson MD [address] [place] [address] Referring Gastroenterology 03/12/24 Transfer Man Relationship Specialty Start Date End Date Irena Johnson MD [address] [place] [address] Referring Gastroenterology 03/12/24 Transfer Man Relationship Specialty Start Date End Date Irena Johnson MD [address] [place] [address] Referring Gastroenterology 03/12/24 Transfer Man Relationship Specialty Start Date End Date Irena Johnson MD [address] [place] [address] Referring Gastroenterology 03/12/24 Transfer Man Relationship Specialty Start Date End Date Irena Johnson MD [address] [place] [address] [place] [address] Referring Gastroenterology 03/12/24 Transfer Man Relationship Specialty Start Date End Date Irena Johnson MD [address] [place] [address] [place] [address] Referring Gastroenterology 03/12/24 Jade Arora MD [address] [place] [address] Primary Staff Physician Cardiology 05/02/24 Transfer Man Relationship Specialty Start Date End Date Irena Johnson MD [address] [place] [address] [place] [address] Referring Gastroenterology 03/12/24 Jade Arora MD [address] [place] [address] Primary Staff Physician Cardiology 05/02/24 Transfer Man Relationship Specialty Start Date End Date Irena Johnson MD [address] [place] [address] [place] [address] Referring Gastroenterology 03/12/24 Jade Arora MD [address] [place] [address] Primary Staff Physician Cardiology 05/02/24 Transfer Man Relationship Specialty Start Date End Date Irena Johnson MD [address] [place] [address] [place] [address] Referring Gastroenterology 03/12/24 Jade Arora MD [address] [place], [place] [address] Primary Staff Physician Cardiology 05/02/24 Transfer Man Relationship Specialty Start Date End Date Irena Johnson MD [address] [place] [address] [facility] [address] Referring Gastroenterology 03/12/24 Transfer Man Relationship Specialty Start Date End Date Sanjay Robledo MD [address] [place] [address] [place] [address] PCP - [employer] 04/17/22 Sanjay Robledo MD [address] [place] [address] [place] [address] PCP - General Internal Medicine 11/23/22 Transfer Man Relationship Specialty Start Date End Date Irena Johnson MD [address] [place] [address] [facility] [address] Referring Gastroenterology 03/12/24 Jade Arora MD [address] [place] [address] Primary Staff Physician Cardiology 05/02/24 Transfer Man Relationship Specialty Start Date End Date Sanjay Robledo MD [address] [place] [address] [place] [address] PCP - [employer] 04/17/22 Sanjay Robledo MD [address] [place] [address] [address] [place] [address] PCP - General Internal Medicine 11/23/22 Transfer Man Relationship Specialty Start Date End Date Irena Johnson MD [address] [place] [address] [place] [address] Referring Gastroenterology 03/12/24 Jade Arora MD [address] [place] [address] Primary Staff Physician Cardiology 05/02/24 Transfer Man Relationship Specialty Start Date End Date Irena Johnson MD [address] [facility] [address] [place] [address] Referring Gastroenterology 03/12/24 Jade Arora MD [address] [place] [address] Primary Staff Physician Cardiology 05/02/24 Transfer Man Relationship Specialty Start Date End Date Irena Johnson MD [address] [facility] [address] [place] [address] Referring Gastroenterology 03/12/24 Jade Arora MD [address] [place] [address] Primary Staff Physician Cardiology 05/02/24 Transfer Man Relationship Specialty Start Date End Date Irena Johnson MD [address] [facility] [address] [place] [address] Referring Gastroenterology 03/12/24 Jade Arora MD [address] [place] [address] Primary Staff Physician Cardiology 05/02/24 Transfer Man Relationship Specialty Start Date End Date Irena Johnson MD [address] [facility] [address] [place] [address] Referring Gastroenterology 03/12/24 Jade Arora MD [address] [place] [address] Primary Staff Physician Cardiology 05/02/24 Transfer Man Relationship Specialty Start Date End Date Irena Johnson MD [address] [facility] [address] [place] [address] Referring Gastroenterology 03/12/24 Jade Arora MD [address] [place] [address] Primary Staff Physician Cardiology 05/02/24 Transfer Man Relationship Specialty Start Date End Date Irena Johnson MD [address] [facility] [address] [place] [address] Referring Gastroenterology 03/12/24 Jade Arora MD [address] [place] [address] Primary Staff Physician Cardiology 05/02/24 Transfer Man Relationship Specialty Start Date End Date Irena Johnson MD [address] [place] [address] [place] [address] Referring Gastroenterology 03/12/24 Transfer Man Relationship Specialty Start Date End Date Sanjay Robledo II, MD [address] [place] [address] [place] [address] PCP - General Internal Medicine 05/28/24 Irena Johnson MD [address] [place] [address] [place] [address] Referring Gastroenterology 03/12/24 Jade Arora MD [address] [place] [address] Primary Staff Physician Cardiology 05/02/24 Transfer Man Relationship Specialty Start Date End Date Sanjay Robledo II, MD [address] [facility] [address] [place] [address] PCP - General Internal Medicine 05/28/24 Irena Johnson MD [address] [place] [address] [place] [address] Referring Gastroenterology 03/12/24 Jade Arora MD [address] [place], [place] [address] Primary Staff Physician Cardiology 05/02/24 Transfer Man Relationship Specialty Start Date End Date Sanjay Robledo II, MD [address] [facility] [address] [place] [address] PCP - General Internal Medicine 05/28/24 Irena Johnson MD [address] [place] [address] [place] [address] Referring Gastroenterology 03/12/24 Jade Arora MD [address] [place] [address] Primary Staff Physician Cardiology 05/02/24 Transfer Man Relationship Specialty Start Date End Date Sanjay Robledo II, MD [address] [facility] [address] [place] [address] PCP - General Internal Medicine 05/28/24 Irena Johnson MD [address] [place] [address] [place] [address] Referring Gastroenterology 03/12/24 Jade Arora MD [address] [place], [place] [address] Primary Staff Physician Cardiology 05/02/24 Transfer Man Relationship Specialty Start Date End Date Sanjay Robledo II, MD [address] [address] PCP - General Internal Medicine 05/28/24 Irena Johnson MD [address] [place] [address] [place] [address] Referring Gastroenterology 03/12/24 Jade Arora MD [address] [place], [place] [address] Primary Staff Physician Cardiology 05/02/24 Transfer Man Relationship Specialty Start Date End Date Sanjay Robledo II, MD [address] [place] [address] [place] [address] PCP - General Internal Medicine 05/28/24 Irena Johnson MD [address] [place] [address] [place] [address] Referring Gastroenterology 03/12/24 Jade Arora MD [address] [place], [place] [address] Primary Staff Physician Cardiology 05/02/24 Transfer Man Relationship Specialty Start Date End Date Sanjay Robledo II, MD [address] [facility] [address] [place] [address] PCP - General Internal Medicine 05/28/24 Irena Johnson MD [address] [place] [address] [place] [address] Referring Gastroenterology 03/12/24 Jade Arora MD [address] [place] [address] Primary Staff Physician Cardiology 05/02/24 Transfer Man Relationship Specialty Start Date End Date Sanjay Robledo MD [address] [place] [address] [place] [address] PCP - [employer] 04/17/22 Sanjay Robledo MD [address] [place] [address] [place] [address] PCP - General Internal Medicine 11/23/22 Transfer Man Relationship Specialty Start Date End Date Sanjay Robledo II, MD [address] [facility] [address] [place] [address] PCP - General Internal Medicine 05/28/24 Irena Johnson MD [address] [place] [address] [place] [address] Referring Gastroenterology 03/12/24 Jade Arora MD [address] [place], [place] [phone] Primary Staff Physician Cardiology 05/02/24 Transfer Man Relationship Specialty Start Date End Date Sanjay Robledo II, MD [address] [facility] [address] [place] [address] PCP - General Internal Medicine 05/28/24 Irena Johnson MD [address] [place] [address] [place] [phone] Referring Gastroenterology 03/12/24 Jade Arora MD [address] [place] [address] Primary Staff Physician Cardiology 05/02/24 Transfer Man Relationship Specialty Start Date End Date Sanjay Robledo II, MD [address] [facility] [address] [place] [address] PCP - General Internal Medicine 05/28/24 Irnea Johnson MD [address] [place] [address] [place] [address] Referring Gastroenterology 03/12/24 Jade Arora MD [address] [place] [address] Primary Staff Physician Cardiology 05/02/24 Transfer Man Relationship Specialty Start Date End Date Sanjay Robledo II, MD [address] [facility] [address] [place] [address] PCP - General Internal Medicine 05/28/24 Irena Johnson MD [address] [place] [address] [place] [address] Referring Gastroenterology 03/12/24 Jade Arora MD [address] [place] [address] Primary Staff Physician Cardiology 05/02/24 Transfer Man Relationship Specialty Start Date End Date Sanjay Robledo II, MD [address] [facility] [address] [place] [address] PCP - General Internal Medicine 05/28/24 Irena Johnson MD [address] [place] [address] [place] [address] Referring Gastroenterology 03/12/24 Jade Arora MD [address] [place] [address] Primary Staff Physician Cardiology 05/02/24 Transfer Man Relationship Specialty Start Date End Date Sanjay Robledo II, MD [address] [facility] [address] [place] [address] PCP - General Internal Medicine 05/28/24 Irena Johnson MD [address] [place] [address] [place] [address] Referring Gastroenterology 03/12/24 Jade Arora MD [address] [place] [place] [address] Primary Staff Physician Cardiology 05/02/24 Transfer Man Relationship Specialty Start Date End Date Sanjay Robledo II, MD [address] [address] PCP - General Internal Medicine 05/28/24 Irena Johnson MD [address] [place] [address] [place] [address] Referring Gastroenterology 03/12/24 Jade Arora MD [address] [place] [address] Primary Staff Physician Cardiology 05/02/24 Transfer Man Relationship Specialty Start Date End Date Sanjay Robledo II, MD [address] [address] PCP - General Internal Medicine 05/28/24 Irena Johnson MD [address] [place] [address] [place] [address] Referring Gastroenterology 03/12/24 Jade Arora MD [address] [place] [address] Primary Staff Physician Cardiology 05/02/24 Transfer Man Relationship Specialty Start Date End Date Sanjay Robledo II, MD [address] [facility] 110 [place] [address] PCP - General Internal Medicine 05/28/24 Irena Johnson MD 3000 [facility] [address] [place] [address] Referring Gastroenterology 03/12/24 Jade Arora MD [address] [place] [address] Primary Staff Physician Cardiology 05/02/24 Team Status: Inactive Member Role Status Dates Irena Johnson MD Attending Provider Active Start : June 19, 2024 End: June 19, 2024 Sanjay Robledo II MD Primary Care Provider Active Start: June 19, 2024 End: June 19, 2024 Transfer Man Relationship Specialty Start Date End Date Sanjay Robledo II, MD [address] [place] [address] PCP - General Internal Medicine 05/28/24 Irena Johnson MD 3000 [facility] [place] [address] [place] [address] Referring Gastroenterology 03/12/24 Jade Arora MD [address] [place] [address] Primary Staff Physician Cardiology 05/02/24 Transfer Man Relationship Specialty Start Date End Date Sanjay Robledo II, MD [address] [facility] [address] [place] [address] PCP - General Internal Medicine 05/28/24 Irena Johnson MD [address] [place] [address] [place] [address] Referring Gastroenterology 03/12/24 Jade Arora MD [address] [place] [address] Primary Staff Physician Cardiology 05/02/24 Transfer Man Relationship Specialty Start Date End Date Sanjay Robledo II, MD [address] [facility] [address] [place] [address] PCP - General Internal Medicine 05/28/24 Irena Johnson MD [address] [place] [address] [place] [address] Referring Gastroenterology 03/12/24 Jade Arora MD [address] [place] [address] Primary Staff Physician Cardiology 05/02/24 Transfer Man Relationship Specialty Start Date End Date Sanjay Robledo II, MD [address] [facility] [address] [place] [address] PCP - General Internal Medicine 05/28/24 Irena Johnson MD [address] [place] [address] [place] [address] Referring Gastroenterology 03/12/24 Jade Arora MD [address] [place] [address] Primary Staff Physician Cardiology 05/02/24 Transfer Man Relationship Specialty Start Date End Date Sanjay Robledo II, MD [address] [facility] 110 [place] [address] PCP - General Internal Medicine 05/28/24 Irena Johnson MD [address] [place] [address] [place] [address] Referring Gastroenterology 03/12/24 Jade Arora MD [address] [place], [place] [address] Primary Staff Physician Cardiology 05/02/24 Transfer Man Relationship Specialty Start Date End Date Sanjay Robledo II, MD [address] [facility] [address] [place] [address] PCP - General Internal Medicine 05/28/24 Irena Johnson MD [address] [place] [address] [place] [address] Referring Gastroenterology 03/12/24 Jade Arora MD [address] [place], [place] [phone] Primary Staff Physician Cardiology 05/02/24 Transfer Man Relationship Specialty Start Date End Date Sanjay Robledo II, MD [address] [facility] [address] [place] [address] PCP - General Internal Medicine 05/28/24 Irena Johnson MD [address] [place] [address] [place] [address] Referring Gastroenterology 03/12/24 Jade Arora MD [address] [place] [address] Primary Staff Physician Cardiology 05/02/24 Team Status: Inactive Member Role Status Dates Sanjay Robledo II MD Primary Care Provider Active Start: July 30, 2024 End: July 30, 2024 Irena Johnson MD Attending Provider Active Start : July 30, 2024 End: July 30, 2024 Transfer Man Relationship Specialty Start Date End Date Sanjay Robledo II, MD [address] [facility] [address] [place] [address] PCP - General Internal Medicine 05/28/24 Irena Johnson MD [address] [place] [address] [place] [address] Referring Gastroenterology 03/12/24 Jade Arora MD [address] [place] [address] Primary Staff Physician Cardiology 05/02/24 Transfer Man Relationship Specialty Start Date End Date Sanjay Robledo II, MD [address] [facility] [address] [place] [address] PCP - General Internal Medicine 05/28/24 Irena Johnson MD [address] [place] [address] [place] [address] Referring Gastroenterology 03/12/24 Jade Arora MD [address] [place], [place] [address] Primary Staff Physician Cardiology 05/02/24 Transfer Man Relationship Specialty Start Date End Date Sanjay Robledo II, MD [address] [place] [address] [place] [address] PCP - General Internal Medicine 05/28/24 Irena Johnson MD [address] [place] [address] [place] [address] Referring Gastroenterology 03/12/24 Jade Arora MD [address] [place], [place] [address] Primary Staff Physician Cardiology 05/02/24 Transfer Man Relationship Specialty Start Date End Date Sanjay Robledo II, MD [address] [facility] [address] [place] [address] PCP - General Internal Medicine 05/28/24 Irena Johnson MD [address] [place] [address] [place] [address] Referring Gastroenterology 03/12/24 Jade Arora MD [address] [place], [place] [address] Primary Staff Physician Cardiology 05/02/24 Transfer Man Relationship Specialty Start Date End Date Sanjay Robledo II, MD [address] [facility] [address] [place] [address] PCP - General Internal Medicine 05/28/24 Irena Johnson MD [address] [place] [address] [place] [address] Referring Gastroenterology 03/12/24 Jade Arora MD [address] [place] [address] Primary Staff Physician Cardiology 05/02/24 Transfer Man Relationship Specialty Start Date End Date Sanjay Robledo MD [address] [place] [address] [place] [address] PCP - [employer] 04/17/22 Sanjay Robledo MD [address] [facility] [address] [place] [address] PCP - General Internal Medicine 11/23/22 Transfer Man Relationship Specialty Start Date End Date Sanjay Robledo II, MD [address] [facility] [address] [place] [address] PCP - General Internal Medicine 05/28/24 Irena Johnson MD [address] [place] [address] [place] [address] Referring Gastroenterology 03/12/24 Jade Arora MD [address] [place] [address] Primary Staff Physician Cardiology 05/02/24 Transfer Man Relationship Specialty Start Date End Date Sanjay Robledo II, MD [address] [facility] [address] [place] [address] PCP - General Internal Medicine 05/28/24 Irena Johnson MD [address] [place] [address] [place] [address] Referring Gastroenterology 03/12/24 Jade Arora MD [address] [place] [address] Primary Staff Physician Cardiology 05/02/24 Transfer Man Relationship Specialty Start Date End Date Sanjay Robledo II, MD [address] [facility] [address] [place] [address] PCP - General Internal Medicine 05/28/24 Irena Johnson MD [address] [place] [address] [place] [address] Referring Gastroenterology 03/12/24 Jade Arora MD [address] [place] [address] Primary Staff Physician Cardiology 05/02/24 Transfer Man Relationship Specialty Start Date End Date Sanjay Robledo MD [address] [place] [address] PCP - [employer] 04/17/22 Sanjay Robledo MD [address] [place] [address] PCP - General Internal Medicine 11/23/22 Transfer Man Relationship Specialty Start Date End Date Sanjay Robledo II, MD [address] [place] [address] PCP - General Internal Medicine 05/28/24 Irena Johnson MD [address] [place] [phone] Referring Gastroenterology 03/12/24 Jade Arora MD [address] [place] [address] Primary Staff Physician Cardiology 05/02/24 Transfer Man Relationship Specialty Start Date End Date Sanjay Robledo MD [address] [place] [address] PCP - [employer] 04/17/22 Sanjay Robledo MD [address] [facility] [address] [place] [address] PCP - General Internal Medicine 11/23/22 Transfer Man Relationship Specialty Start Date End Date Sanjay Robledo II, MD [address] [facility] [address] [place] [address] PCP - General Internal Medicine 05/28/24 Irena Johnson MD [address] [place] [address] Referring Gastroenterology 03/12/24 Jade Aroar MD [address] [place] [address] Primary Staff Physician Cardiology 05/02/24 Transfer Man Relationship Specialty Start Date End Date Sanjay Robledo II, MD [address] [facility] [address] [place] [address] PCP - General Internal Medicine 05/28/24 Irena Johnson MD [address] [place] [phone] Referring Gastroenterology 03/12/24 Jade Arora MD [address] [place] [address] Primary Staff Physician Cardiology 05/02/24 Transfer Man Relationship Specialty Start Date End Date Sanjay Robledo II, MD [address] [facility] [address] [place] [address] PCP - General Internal Medicine 05/28/24 Irena Johnson MD [address] [place] [phone] Referring Gastroenterology 03/12/24 Jade Arora MD [address] [place] [address] Primary Staff Physician Cardiology 05/02/24 Carina Ziegler RN [facility] [address] [place] [address] Registered Nurse Transplant Center 09/17/24 Transfer Man Relationship Specialty Start Date End Date Sanjay Robledo II, MD [address] [facility] [address] [place] [address] PCP - General Internal Medicine 05/28/24 Irena Johnson MD [address] [place] [phone] Referring Gastroenterology 03/12/24 Jade Arora MD [address] [place] [address] Primary Staff Physician Cardiology 05/02/24 Carina Ziegler RN [facility] [address] [place] [address] Registered Nurse Transplant Center 09/17/24 Transfer Man Relationship Specialty Start Date End Date Sanjay Robledo II, MD [address] [facility] [address] [place] [address] PCP - General Internal Medicine 05/28/24 Irena Johnson MD [address] [place] [address] Referring Gastroenterology 03/12/24 Jade Arora MD [address] [place] [address] Primary Staff Physician Cardiology 05/02/24 Carina Ziegler, LEO [facility] [address] [place] [address] Registered Nurse Transplant Center 09/17/24 Transfer Man Relationship Specialty Start Date End Date Sanjay Robledo II, MD [address] [facility] [address] [place] [address] PCP - General Internal Medicine 05/28/24 Irena Johnson MD [address] [place] [address] Referring Gastroenterology 03/12/24 Jade Arora MD [address] [place] [address] Primary Staff Physician Cardiology 05/02/24 Carina Ziegler RN [facility] [address] [place] [address] Registered Nurse Transplant Center 09/17/24 Transfer Man Relationship Specialty Start Date End Date Sanjay Robledo II, MD [address] [facility] [address] [place] [address] PCP - General Internal Medicine 05/28/24 Irena Johnson MD [address] [place] [phone] Referring Gastroenterology 03/12/24 Jade Arora MD [address] [place] [address] Primary Staff Physician Cardiology 05/02/24 Carina Ziegler RN [facility] [address] [place] [address] Registered Nurse Transplant Center 09/17/24 Transfer Man Relationship Specialty Start Date End Date Sanjay Robledo II, MD [address] [address] PCP - General Internal Medicine 05/28/24 Irena Johnson MD [address] [place] [phone] Referring Gastroenterology 03/12/24 Jade Arora MD [address] [place] [address] Primary Staff Physician Cardiology 05/02/24 Carina Ziegler RN [facility] [address] [place] [address] Registered Nurse Transplant Center 09/17/24 Transfer Man Relationship Specialty Start Date End Date Sanjay Robledo II, MD [address] [facility] [address] [place] [address] PCP - General Internal Medicine 05/28/24 Irena Johnson MD [address] [place] [address] Referring Gastroenterology 03/12/24 Jade Arora MD [address] [place] [address] Primary Staff Physician Cardiology 05/02/24 Carina Ziegler, RN [facility] [address] [place] [address] Registered Nurse Transplant Center 09/17/24 Transfer Man Relationship Specialty Start Date End Date Sanjay Robledo II, MD [address] [facility] [address] [place] [address] PCP - General Internal Medicine 05/28/24 Irena Johnson MD [address] [place] [phone] Referring Gastroenterology 03/12/24 Jade Arora MD [address] [place] [address] Primary Staff Physician Cardiology 05/02/24 Carina Ziegler, LEO [facility] [address] [place] [address] Registered Nurse Transplant Center 09/17/24 Transfer Man Relationship Specialty Start Date End Date Sanjay Robledo II, MD [address] [facility] [address] [place] [address] PCP - General Internal Medicine 05/28/24 Irena Johnson MD [address] [place] [phone] Referring Gastroenterology 03/12/24 Jade Arora MD [address] [place] [address] Primary Staff Physician Cardiology 05/02/24 Carina Ziegler, RN [facility] [address] [place] [address] Registered Nurse Transplant Center 09/17/24 Transfer Man Relationship Specialty Start Date End Date Sanjay Robledo II, MD [address] [facility] [address] [place] [address] PCP - General Internal Medicine 05/28/24 Irena Johnson MD [address] [place] [phone] Referring Gastroenterology 03/12/24 Jade Arora MD [address] [place] [address] Primary Staff Physician Cardiology 05/02/24 Carina Ziegler RN [facility] [address] [place] [address] Registered Nurse Transplant Center 09/17/24 Transfer Man Relationship Specialty Start Date End Date Sanjay Robledo II, MD [address] [facility] [address] [place] [address] PCP - General Internal Medicine 05/28/24 Irena Johnson MD [address] [place] [phone] Referring Gastroenterology 03/12/24 Jade Arora MD [address] [place], [place] [address] Primary Staff Physician Cardiology 05/02/24 Carina Ziegler, LEO [facility] [address] [place] [address] Registered Nurse Transplant Center 09/17/24 Transfer Man Relationship Specialty Start Date End Date Sanjay Robledo MD [address] [facility] [address] [place] [address] PCP - [employer] 04/17/22 Sanjay Robledo MD [address] [facility] [address] [place] [address] PCP - General Internal Medicine 11/23/22 Transfer Man Relationship Specialty Start Date End Date Sanjay Robledo II, MD [address] [facility] [address] [place] [address] PCP - General Internal Medicine 05/28/24 Irena Johnson MD [address] [facility] [address] [place] [phone] Referring Gastroenterology 03/12/24 Jade Arora MD [address] [place] [address] Primary Staff Physician Cardiology 05/02/24 Carina Ziegler, LEO [facility] [address] [place] [address] Registered Nurse Transplant Center 09/17/24 Transfer Man Relationship Specialty Start Date End Date Sanjay Robledo II, MD [address] [facility] [address] [place] [address] PCP - General Internal Medicine 05/28/24 Irena Johnson MD [address] [place] [phone] Referring Gastroenterology 03/12/24 Jade Arora MD [address] [place] [address] Primary Staff Physician Cardiology 05/02/24 Carina Ziegler, RN [facility] [address] [place] [address] Registered Nurse Transplant Center 09/17/24 Transfer Man Relationship Specialty Start Date End Date Sanjay Robledo II, MD [address] [facility] [address] [place] [address] PCP - General Internal Medicine 05/28/24 Irena Johnson MD [address] [place] [phone] Referring Gastroenterology 03/12/24 Jade Arora MD [address] [place] [address] Primary Staff Physician Cardiology 05/02/24 Carina Ziegler, RN [facility] [address] [place] [address] Registered Nurse Transplant Center 09/17/24 Transfer Man Relationship Specialty Start Date End Date Sanjay Robledo MD [address] [facility] [address] [place] [address] PCP - [employer] 04/17/22 Sanjay Robledo MD [address] [place] [address] PCP - General Internal Medicine 11/23/22 Transfer Man Relationship Specialty Start Date End Date Sanjay Robledo II, MD [address] [facility] [address] [place] [address] PCP - General Internal Medicine 05/28/24 Irena Johnson MD [address] [place] [phone] Referring Gastroenterology 03/12/24 Jade Arora MD [address] [place] [address] Primary Staff Physician Cardiology 05/02/24 Carina Ziegler, RN [facility] [address] [place] [address] Registered Nurse Transplant Center 09/17/24 Transfer Man Relationship Specialty Start Date End Date Sanjay Robledo II, MD [address] [facility] [address] [place] [address] PCP - General Internal Medicine 05/28/24 Irena Johnson MD [address] [place] [phone] Referring Gastroenterology 03/12/24 Jade Arora MD [address] [place] [address] Primary Staff Physician Cardiology 05/02/24 Carina Ziegler, LEO [facility] [address] [place] [address] Registered Nurse Transplant Center 09/17/24 Transfer Man Relationship Specialty Start Date End Date Sanjay Robledo II, MD [address] [facility] [address] [place] [address] PCP - General Internal Medicine 05/28/24 Irena Johnson MD [address] [place] [phone] Referring Gastroenterology 03/12/24 Jade Arora MD [address] [place] [address] Primary Staff Physician Cardiology 05/02/24 Carina Ziegler, RN [facility] [address] [facility] [place] [place] [address] Registered Nurse Transplant Center 09/17/24 Transfer Man Relationship Specialty Start Date End Date Sanjay Robledo II, MD [address] [facility] [address] [place] [address] PCP - General Internal Medicine 05/28/24 Irena Johnson MD [address] [place] [address] Referring Gastroenterology 03/12/24 Jade Arora MD [address] [place] [address] Primary Staff Physician Cardiology 05/02/24 Carina Ziegler RN [facility] [address] [place] [address] Registered Nurse Transplant Center 09/17/24 Transfer Man Relationship Specialty Start Date End Date Sanjay Robledo II, MD [address] [facility] [address] [place] [address] PCP - General Internal Medicine 05/28/24 Irena Johnson MD [address] [place] [place] [phone] Referring Gastroenterology 03/12/24 Jade Arora MD [address] [place] [address] Primary Staff Physician Cardiology 05/02/24 Carina Ziegler, RN [facility] [address] [place] [address] Registered Nurse Transplant [place] 09/17/24 Transfer Man Relationship Specialty Start Date End Date Sanjay Robledo II, MD [address] [facility] [address] [place] [address] PCP - General Internal Medicine 05/28/24 Irena Johnson MD 3000 [facility] [address] [facility] [address] [place] [phone] Referring Gastroenterology 03/12/24 Jade Arora MD [address] [place] [address] Primary Staff Physician Cardiology 05/02/24 Carina Ziegler, RN [facility] [address] [place] [address] Registered Nurse Transplant [place] 09/17/24 REASON FOR VISIT (unrecogniz ed section and content) Reason Comments painful hemorrhoid Specialty Diagnoses / Procedures Referred By Contac t Referred To Contact General Surgery Diagnoses Unspecified hemorrhoids Procedures ME OFFICE/OUTPATIENT [facility] MDM 60 MINUTES Rick Ortega MD [address] [facility] [address] [place] [address] [place] [address] [facility] [address] [place] [address] Referral ID Status Reason Start Date Expiration Date V isits Requested Visits Authorized [id number] Closed Specialty Services Required 05/12/2023 11/08/2023 1 1 Reason Comments pain increasingly worse and wants to dis cuss surgery Anal fissure Reason Comments Cataract Reason Comments Referral - Liver Txp Reason Comments Referral - Liver Txp Reason Comments Follow Up Reason Comments Referral - Liver Txp Intake Reason Comments Reminder Call Liver Eval Reason Comments Informed Consent Transplant Evaluation Consent Patient Education Reason Comments Spirometry Specialty Diagnoses / Procedures Referred By Contac t Referred To Contact [facility] Diagnoses Pleural effusion associated with hepatic disorder Shortness of breath Lesion of liver greater than 1 cm in diameter Alcoholic cirrhosis of liver with ascites (HCC) Liver transplant candidate Metabolic dysfunction-associated steatotic liver disease (MASLD) Procedures SPIROMETRY BASELINE ONLY SPMTRY W/VC EXPIRATORY EDY W/WO MXML VOL VNTJ Dmitri Reyes MD [address] [place] [address] [facility] [place] [address] [place] [id number] Referral ID Status Reason Start Date Expiration Date V isits Requested Visits Authorized [id number] Closed Auto-Generate d Referral 04/29/2024 05/23/2025 1 1 Reason Comments Patient Education Assessment Specialty Diagnoses / Procedures Referred By Contac t Referred To Contact Nutrition Diagnoses Lesion of liver greater than 1 cm in diameter Alcoholic cirrhosis of liver with ascites (HCC) Liver transplant candidate Metabolic dysfunction-associated steatotic liver disease (MASLD) Procedures CONSULT TO NUTRITION THERAPY MEDICAL NUTRITION ASSMT&IVNTJ INDIV EACH 15 MD Dmitri Reyes MD [address] [place] [address] Referral ID Status Reason Start Date Expiration Date Visits Requested Visits Authorized [id number] Authorized PCP Requested Referral 04/29/2024 04/23/2025 [address] Specialty Diagnoses / Procedures [facility] Contact [facility] Diagnoses Lesion of liver greater than 1 cm in diameter Alcoholic cirrhosis of liver with ascites (HCC) Liver transplant candidate Metabolic dysfunction-associated steatotic liver disease (MASLD) Procedures CT LIVER W IVCON CT ABDOMEN W/CONTRAST Dmitri Reyes MD [address] [place] [address] Ct Imaging [place] [address] Referral ID Status Reason Start Date Expiration Date V isits Requested Visits Authorized [id number] Closed Auto-Generate d Referral 04/29/2024 05/23/2025 1 1 Specialty Diagnoses / Procedures Referred By Rogelio mann Referred To Contact Diagnoses Pleural effusion associated with hepatic disorder Shortness of breath Lesion of liver greater than 1 cm in diameter Encounter for screening for malignant neoplasm of prostate Alcoholic cirrhosis of liver with ascites (HCC) Liver transplant candidate Metabolic dysfunction-associated steatotic liver disease (MASLD) Procedures CONSULT TO HEPATOLOGY OFFICE/OUTPATIENT [facility] 60 MINUTES Dmitri Reyes MD [address] [facility] [place] [address] Referral ID Status Reason Start Date Expiration Date V isits Requested Visits Authorized [id number] Closed PCP Requested Referral 04/29/2024 04/23/2025 1 1 Reason Comments Appointment (Thoracentesis) Reason Comments Patient Education Specialty Diagnoses / Procedures Referred By Rogelio mann Referred To Contact Anesthesiology Diagnoses Pleural effusion associated with hepatic disorder Shortness of breath Lesion of liver greater than 1 cm in diameter Alcoholic cirrhosis of liver with ascites (HCC) Liver transplant candidate Metabolic dysfunction-associated steatotic liver disease (MASLD) Procedures CONSULT TO ANESTHESIOLOGY OFFICE/OUTPATIENT [facility] 60 MINUTES Dmitri Reyes MD [address] [place] [address] Referral ID Status Reason Start Date Expiration Date V isits Requested Visits Authorized [id number] Closed PCP Requested Referral 04/29/2024 04/23/2025 1 1 Specialty Diagnoses / Procedures Referred By Rogelio mann Referred To Contact Cardiology Diagnoses Pleural effusion associated with hepatic disorder Shortness of breath Lesion of liver greater than 1 cm in diameter Alcoholic cirrhosis of liver with ascites (HCC) Liver transplant candidate Metabolic dysfunction-associated steatotic liver disease (MASLD) Procedures CONSULT TO CARDIOLOGY OFFICE/OUTPATIENT [facility] 60 MINUTES Dmitri Reyes MD [address] [place] [address] Referral ID Status Reason Start Date Expiration Date V isits Requested Visits Authorized [id number] Closed PCP Requested Referral 04/29/2024 04/23/2025 1 1 Reason Comments New Patient Transplant Evaluation Liver transplant c andidate Specialty Diagnoses / Procedures Referred By Contac t Referred To Contact Infectious Diseases Diagnoses Lesion of liver greater than 1 cm in diameter Alcoholic cirrhosis of liver with ascites (HCC) Liver transplant candidate Metabolic dysfunction-associated steatotic liver disease (MASLD) Procedures CONSULT TO INFECTIOUS DISEASES OFFICE/OUTPATIENT [facility] 60 MINUTES Dmitri Reyes MD [address] [facility] [place] [id number] Referral ID Status Reason Start Date Expiration Date V isits Requested Visits Authorized [id number] Closed PCP Requested Referral 04/29/2024 04/23/2025 1 1 Reason Comments Results, Lab Reason Comments Results Specialty Diagnoses / Procedures [facility] To [facility] Diagnoses Dyspnea, unspecified type Procedures SPIROMETRY WITH DILATOR IF OBSTRUCTED BRNCDILAT RSPSE SPMTRY PRE&POST-BRNCDILAT ADMN Sandro Dee MD [address] [place] [address] [facility] [place] [address] [place] [address] Referral ID Status Reason Start Date Expiration Date V isits Requested Visits Authorized [id number] Closed Auto-Generate d Referral 04/23/2024 05/23/2025 1 1 Reason Comments New Patient Specialty Diagnoses / Procedures [facility] Referred To Contact Pulmonary and Critical Care Medicine Diagnoses Pleural effusion associated with hepatic disorder Shortness of breath Lesion of liver greater than 1 cm in diameter Alcoholic cirrhosis of liver with ascites (HCC) Liver transplant candidate Metabolic dysfunction-associated steatotic liver disease (MASLD) Procedures CONSULT TO PULM/CRITICAL CARE OFFICE/OUTPATIENT [facility] 60 MINUTES Dmitri Reyes MD [address] [facility] [place] [address] Referral ID Status Reason Start Date Expiration Date V isits Requested Visits Authorized [id number] Closed PCP Requested Referral 04/29/2024 04/23/2025 1 1 Reason Comments Education Of Patient/family Specialty Diagnoses / Procedures [facility] Diagnoses Pleural effusion associated with hepatic disorder Procedures LUNG DIFFUSION CAPACITY (DLCO) LUNG DIFFUSION CAPACITY (DLCO) DIFFUSING CAPACITY Cheri Guido MD [address] [place] [address] Phone: tel: fax: [facility] [place] [address] [place] [address] Referral ID Status Reason Start Date Expiration Date V isits Requested Visits Authorized [id number] Closed Auto-Generate d Referral 05/23/2024 06/22/2025 1 1 Specialty Diagnoses / Procedures Referred By Contac t Referred To Contact [facility] Diagnoses Pleural effusion associated with hepatic disorder Procedures SPIROMETRY WITH DILATOR IF OBSTRUCTED SPIROMETRY WITH DILATOR IF OBSTRUCTED BRNCDILAT RSPSE SPMTRY PRE&POST-BRNCDILAT ADMCheri Goodrich MD [address] [place] [address] Phone: tel: fax: [place] [address] Referral ID Status Reason Start Date Expiration Date V isits Requested Visits Authorized [id number] Closed Auto-Generate d Referral 05/23/2024 06/22/2025 1 1 Reason Comments Pre-Op Exam Reason Comments CARDIAC SUBCOMMITTEE MTG Reason Comments Radiology MRI Specialty Diagnoses / Procedures Referred By Contac t Referred To Contact MR IMAGING Diagnoses Low back pain, unspecified back pain laterality, unspecified chronicity, unspecified whether sciatica present Procedures MRI CERVICAL SPINE WO/W IVCON MRI SPINAL CANAL CERVICAL W/O & W/CONTR MATRL Dmitri Reyes MD [address] [place] [address] Phone: tel: fax: MR IMAGING [place] [address] Referral ID Status Reason Start Date Expiration Date V isits Requested Visits Authorized [id number] Closed Auto-Generate d Referral 05/18/2024 06/17/2025 1 1 Reason Comments Outside Labs Results chemistry Reason Comments OLT evaluation Reason Comments OLT selection mtg pt notification Reason Comments Outside Lab Results Reason Comments Consult 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 Reason Comments Biopsy Request Reason Comments Patient Update Reason Comments Informed Consent 91 Patient Education Reason Comments Transplant Serologies Reason Comments dc ed scheduling Reason Comments Return Call Request Reason Comments Liver Pathology Review HCC Loop Score Reason Comments CoPat Start Reason Comments 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 CoPat Agency Reason Comments CoPat Management Lab review Reason Comments CoPat Stop Goals (unrecognized section and content) Goals may be documented in a n alternate section (unrecognized sect ion and content) No Status Records FoundNo Status Records FoundNo Status Records FoundNo Status Records FoundNo Status Records FoundNo Status Records FoundNo Status Records Found INFORMATION SOURCE (unrecogn ized section and content) DATE CREATED AUTHOR 07/14/2023 Kirill Redman [facility] DATE CREATED AUTHOR AUTHOR'S ORGANIZ ATION 08/06/2024 [facility] DATE CREATED AUTHOR AUTHOR'S ORGANIZ ATION 08/22/2024 [facility] EPIC DATE CREATED AUTHOR AUTHOR'S ORGANIZ ATION 08/23/2024 [facility] DATE CREATED AUTHOR AUTHOR'S ORGANIZ ATION 08/23/2024 [facility] DATE CREATED AUTHOR AUTHOR'S ORGANIZ ATION 10/08/2024 [facility] DATE CREATED AUTHOR AUTHOR'S ORGANIZ ATION 11/18/2024 [facility] Source Comments (unrecognize d section and content) In the event this informatio n is protected by the Federal Confidentiality of Alcohol and Drug Abuse Patient Records regulations: The Federal rules restrict any use of the information to criminally investigate or prosecute any alcohol or drug abuse patient.[facility]In the event this information is protected by the Federal Confidentiality of Alcohol and Drug Abuse Patient Records regulations: The Federal rules restrict any use of the information to criminally investigate or prosecute any alcohol or drug abuse patient.[facility] HospitalIn the event this information is protected by the Federal Confidentiality of Alcohol and Drug Abuse Patient Records regulations: The Federal rules restrict any use of the information to criminally investigate or prosecute any alcohol or drug abuse patient.[facility]In the event this information is protected by the Federal Confidentiality of Alcohol and Drug Abuse Patient Records regulations: The Federal rules restrict any use of the information to criminally investigate or prosecute any alcohol or drug abuse patient.[facility] HospitalIn the event this information is protected by the Federal Confidentiality of Alcohol and Drug Abuse Patient Records regulations: The Federal rules restrict any use of the information to criminally investigate or prosecute any alcohol or drug abuse patient.[facility] HospitalIn the event this information is protected by the Federal Confidentiality of Alcohol and Drug Abuse Patient Records regulations: The Federal rules restrict any use of the information to criminally investigate or prosecute any alcohol or drug abuse patient.[facility] HospitalIn the event this information is protected by the Federal Confidentiality of Alcohol and Drug Abuse Patient Records regulations: The Federal rules restrict any use of the information to criminally investigate or prosecute any alcohol or drug abuse patient.[facility] HospitalIn the event this information is protected by the Federal Confidentiality of Alcohol and Drug Abuse Patient Records regulations: The Federal rules restrict any use of the information to criminally investigate or prosecute any alcohol or drug abuse patient.[facility] HospitalIn the event this information is protected by the Federal Confidentiality of Alcohol and Drug Abuse Patient Records regulations: The Federal rules restrict any use of the information to criminally investigate or prosecute any alcohol or drug abuse patient.[facility] HospitalIn the event this information is protected by the Federal Confidentiality of Alcohol and Drug Abuse Patient Records regulations: The Federal rules restrict any use of the information to criminally investigate or prosecute any alcohol or drug abuse patient.[facility] HospitalIn the event this information is protected by the Federal Confidentiality of Alcohol and Drug Abuse Patient Records regulations: The Federal rules restrict any use of the information to criminally investigate or prosecute any alcohol or drug abuse patient.[facility] HospitalIn the event this information is protected by the Federal Confidentiality of Alcohol and Drug Abuse Patient Records regulations: The Federal rules restrict any use of the information to criminally investigate or prosecute any alcohol or drug abuse patient.[facility] HospitalIn the event this information is protected by the Federal Confidentiality of Alcohol and Drug Abuse Patient Records regulations: The Federal rules restrict any use of the information to criminally investigate or prosecute any alcohol or drug abuse patient.[facility] HospitalIn the event this information is protected by the Federal Confidentiality of Alcohol and Drug Abuse Patient Records regulations: The Federal rules restrict any use of the information to criminally investigate or prosecute any alcohol or drug abuse patient.[facility] HospitalIn the event this information is protected by the Federal Confidentiality of Alcohol and Drug Abuse Patient Records regulations: The Federal rules restrict any use of the information to criminally investigate or prosecute any alcohol or drug abuse patient.[facility] HospitalIn the event this information is protected by the Federal Confidentiality of Alcohol and Drug Abuse Patient Records regulations: The Federal rules restrict any use of the information to criminally investigate or prosecute any alcohol or drug abuse patient.[facility] HospitalIn the event this information is protected by the Federal Confidentiality of Alcohol and Drug Abuse Patient Records regulations: The Federal rules restrict any use of the information to criminally investigate or prosecute any alcohol or drug abuse patient.[facility] HospitalIn the event this information is protected by the Federal Confidentiality of Alcohol and Drug Abuse Patient Records regulations: The Federal rules restrict any use of the information to criminally investigate or prosecute any alcohol or drug abuse patient.[facility] HospitalIn the event this information is protected by the Federal Confidentiality of Alcohol and Drug Abuse Patient Records regulations: The Federal rules restrict any use of the information to criminally investigate or prosecute any alcohol or drug abuse patient.[facility] HospitalIn the event this information is protected by the Federal Confidentiality of Alcohol and Drug Abuse Patient Records regulations: The Federal rules restrict any use of the information to criminally investigate or prosecute any alcohol or drug abuse patient.[facility] HospitalIn the event this information is protected by the Federal Confidentiality of Alcohol and Drug Abuse Patient Records regulations: The Federal rules restrict any use of the information to criminally investigate or prosecute any alcohol or drug abuse patient.[facility] HospitalIn the event this information is protected by the Federal Confidentiality of Alcohol and Drug Abuse Patient Records regulations: The Federal rules restrict any use of the information to criminally investigate or prosecute any alcohol or drug abuse patient.[facility] HospitalIn the event this information is protected by the Federal Confidentiality of Alcohol and Drug Abuse Patient Records regulations: The Federal rules restrict any use of the information to criminally investigate or prosecute any alcohol or drug abuse patient.[facility] HospitalIn the event this information is protected by the Federal Confidentiality of Alcohol and Drug Abuse Patient Records regulations: The Federal rules restrict any use of the information to criminally investigate or prosecute any alcohol or drug abuse patient.[facility] HospitalIn the event this information is protected by the Federal Confidentiality of Alcohol and Drug Abuse Patient Records regulations: The Federal rules restrict any use of the information to criminally investigate or prosecute any alcohol or drug abuse patient.[facility] HospitalIn the event this information is protected by the Federal Confidentiality of Alcohol and Drug Abuse Patient Records regulations: The Federal rules restrict any use of the information to criminally investigate or prosecute any alcohol or drug abuse patient.[facility] HospitalIn the event this information is protected by the Federal Confidentiality of Alcohol and Drug Abuse Patient Records regulations: The Federal rules restrict any use of the information to criminally investigate or prosecute any alcohol or drug abuse patient.[facility] HospitalIn the event this information is protected by the Federal Confidentiality of Alcohol and Drug Abuse Patient Records regulations: The Federal rules restrict any use of the information to criminally investigate or prosecute any alcohol or drug abuse patient.[facility] HospitalIn the event this information is protected by the Federal Confidentiality of Alcohol and Drug Abuse Patient Records regulations: The Federal rules restrict any use of the information to criminally investigate or prosecute any alcohol or drug abuse patient.[facility] HospitalIn the event this information is protected by the Federal Confidentiality of Alcohol and Drug Abuse Patient Records regulations: The Federal rules restrict any use of the information to criminally investigate or prosecute any alcohol or drug abuse patient.[facility] HospitalIn the event this information is protected by the Federal Confidentiality of Alcohol and Drug Abuse Patient Records regulations: The Federal rules restrict any use of the information to criminally investigate or prosecute any alcohol or drug abuse patient.[facility] HospitalIn the event this information is protected by the Federal Confidentiality of Alcohol and Drug Abuse Patient Records regulations: The Federal rules restrict any use of the information to criminally investigate or prosecute any alcohol or drug abuse patient.[facility] HospitalIn the event this information is protected by the Federal Confidentiality of Alcohol and Drug Abuse Patient Records regulations: The Federal rules restrict any use of the information to criminally investigate or prosecute any alcohol or drug abuse patient.[facility] HospitalIn the event this information is protected by the Federal Confidentiality of Alcohol and Drug Abuse Patient Records regulations: The Federal rules restrict any use of the information to criminally investigate or prosecute any alcohol or drug abuse patient.[facility] HospitalIn the event this information is protected by the Federal Confidentiality of Alcohol and Drug Abuse Patient Records regulations: The Federal rules restrict any use of the information to criminally investigate or prosecute any alcohol or drug abuse patient.[facility] HospitalIn the event this information is protected by the Federal Confidentiality of Alcohol and Drug Abuse Patient Records regulations: The Federal rules restrict any use of the information to criminally investigate or prosecute any alcohol or drug abuse patient.[facility] HospitalIn the event this information is protected by the Federal Confidentiality of Alcohol and Drug Abuse Patient Records regulations: The Federal rules restrict any use of the information to criminally investigate or prosecute any alcohol or drug abuse patient.[facility] HospitalIn the event this information is protected by the Federal Confidentiality of Alcohol and Drug Abuse Patient Records regulations: The Federal rules restrict any use of the information to criminally investigate or prosecute any alcohol or drug abuse patient.[facility] HospitalIn the event this information is protected by the Federal Confidentiality of Alcohol and Drug Abuse Patient Records regulations: The Federal rules restrict any use of the information to criminally investigate or prosecute any alcohol or drug abuse patient.[facility] HospitalIn the event this information is protected by the Federal Confidentiality of Alcohol and Drug Abuse Patient Records regulations: The Federal rules restrict any use of the information to criminally investigate or prosecute any alcohol or drug abuse patient.[facility] HospitalIn the event this information is protected by the Federal Confidentiality of Alcohol and Drug Abuse Patient Records regulations: The Federal rules restrict any use of the information to criminally investigate or prosecute any alcohol or drug abuse patient.[facility] HospitalIn the event this information is protected by the Federal Confidentiality of Alcohol and Drug Abuse Patient Records regulations: The Federal rules restrict any use of the information to criminally investigate or prosecute any alcohol or drug abuse patient.[facility] HospitalIn the event this information is protected by the Federal Confidentiality of Alcohol and Drug Abuse Patient Records regulations: The Federal rules restrict any use of the information to criminally investigate or prosecute any alcohol or drug abuse patient.[facility] HospitalIn the event this information is protected by the Federal Confidentiality of Alcohol and Drug Abuse Patient Records regulations: The Federal rules restrict any use of the information to criminally investigate or prosecute any alcohol or drug abuse patient.[facility] HospitalIn the event this information is protected by the Federal Confidentiality of Alcohol and Drug Abuse Patient Records regulations: The Federal rules restrict any use of the information to criminally investigate or prosecute any alcohol or drug abuse patient.[facility] HospitalIn the event this information is protected by the Federal Confidentiality of Alcohol and Drug Abuse Patient Records regulations: The Federal rules restrict any use of the information to criminally investigate or prosecute any alcohol or drug abuse patient.[facility] HospitalIn the event this information is protected by the Federal Confidentiality of Alcohol and Drug Abuse Patient Records regulations: The Federal rules restrict any use of the information to criminally investigate or prosecute any alcohol or drug abuse patient.[facility] HospitalIn the event this information is protected by the Federal Confidentiality of Alcohol and Drug Abuse Patient Records regulations: The Federal rules restrict any use of the information to criminally investigate or prosecute any alcohol or drug abuse patient.[facility] HospitalIn the event this information is protected by the Federal Confidentiality of Alcohol and Drug Abuse Patient Records regulations: The Federal rules restrict any use of the information to criminally investigate or prosecute any alcohol or drug abuse patient.[facility] HospitalIn the event this information is protected by the Federal Confidentiality of Alcohol and Drug Abuse Patient Records regulations: The Federal rules restrict any use of the information to criminally investigate or prosecute any alcohol or drug abuse patient.[facility] HospitalIn the event this information is protected by the Federal Confidentiality of Alcohol and Drug Abuse Patient Records regulations: The Federal rules restrict any use of the information to criminally investigate or prosecute any alcohol or drug abuse patient.[facility] HospitalIn the event this information is protected by the Federal Confidentiality of Alcohol and Drug Abuse Patient Records regulations: The Federal rules restrict any use of the information to criminally investigate or prosecute any alcohol or drug abuse patient.[facility] HospitalIn the event this information is protected by the Federal Confidentiality of Alcohol and Drug Abuse Patient Records regulations: The Federal rules restrict any use of the information to criminally investigate or prosecute any alcohol or drug abuse patient.[facility] HospitalIn the event this information is protected by the Federal Confidentiality of Alcohol and Drug Abuse Patient Records regulations: The Federal rules restrict any use of the information to criminally investigate or prosecute any alcohol or drug abuse patient.[facility] HospitalIn the event this information is protected by the Federal Confidentiality of Alcohol and Drug Abuse Patient Records regulations: The Federal rules restrict any use of the information to criminally investigate or prosecute any alcohol or drug abuse patient.[facility] HospitalIn the event this information is protected by the Federal Confidentiality of Alcohol and Drug Abuse Patient Records regulations: The Federal rules restrict any use of the information to criminally investigate or prosecute any alcohol or drug abuse patient.[facility] HospitalIn the event this information is protected by the Federal Confidentiality of Alcohol and Drug Abuse Patient Records regulations: The Federal rules restrict any use of the information to criminally investigate or prosecute any alcohol or drug abuse patient.[facility] HospitalIn the event this information is protected by the Federal Confidentiality of Alcohol and Drug Abuse Patient Records regulations: The Federal rules restrict any use of the information to criminally investigate or prosecute any alcohol or drug abuse patient.[facility] HospitalIn the event this information is protected by the Federal Confidentiality of Alcohol and Drug Abuse Patient Records regulations: The Federal rules restrict any use of the information to criminally investigate or prosecute any alcohol or drug abuse patient.[facility] HospitalIn the event this information is protected by the Federal Confidentiality of Alcohol and Drug Abuse Patient Records regulations: The Federal rules restrict any use of the information to criminally investigate or prosecute any alcohol or drug abuse patient.[facility] HospitalIn the event this information is protected by the Federal Confidentiality of Alcohol and Drug Abuse Patient Records regulations: The Federal rules restrict any use of the information to criminally investigate or prosecute any alcohol or drug abuse patient.[facility] HospitalIn the event this information is protected by the Federal Confidentiality of Alcohol and Drug Abuse Patient Records regulations: The Federal rules restrict any use of the information to criminally investigate or prosecute any alcohol or drug abuse patient.[facility] HospitalIn the event this information is protected by the Federal Confidentiality of Alcohol and Drug Abuse Patient Records regulations: The Federal rules restrict any use of the information to criminally investigate or prosecute any alcohol or drug abuse patient.[facility] HospitalIn the event this information is protected by the Federal Confidentiality of Alcohol and Drug Abuse Patient Records regulations: The Federal rules restrict any use of the information to criminally investigate or prosecute any alcohol or drug abuse patient.[facility] HospitalIn the event this information is protected by the Federal Confidentiality of Alcohol and Drug Abuse Patient Records regulations: The Federal rules restrict any use of the information to criminally investigate or prosecute any alcohol or drug abuse patient.[facility] HospitalIn the event this information is protected by the Federal Confidentiality of Alcohol and Drug Abuse Patient Records regulations: The Federal rules restrict any use of the information to criminally investigate or prosecute any alcohol or drug abuse patient.[facility] HospitalIn the event this information is protected by the Federal Confidentiality of Alcohol and Drug Abuse Patient Records regulations: The Federal rules restrict any use of the information to criminally investigate or prosecute any alcohol or drug abuse patient.[facility] HospitalIn the event this information is protected by the Federal Confidentiality of Alcohol and Drug Abuse Patient Records regulations: The Federal rules restrict any use of the information to criminally investigate or prosecute any alcohol or drug abuse patient.[facility] HospitalIn the event this information is protected by the Federal Confidentiality of Alcohol and Drug Abuse Patient Records regulations: The Federal rules restrict any use of the information to criminally investigate or prosecute any alcohol or drug abuse patient.[facility] HospitalIn the event this information is protected by the Federal Confidentiality of Alcohol and Drug Abuse Patient Records regulations: The Federal rules restrict any use of the information to criminally investigate or prosecute any alcohol or drug abuse patient.[facility] HospitalIn the event this information is protected by the Federal Confidentiality of Alcohol and Drug Abuse Patient Records regulations: The Federal rules restrict any use of the information to criminally investigate or prosecute any alcohol or drug abuse patient.[facility] HospitalIn the event this information is protected by the Federal Confidentiality of Alcohol and Drug Abuse Patient Records regulations: The Federal rules restrict any use of the information to criminally investigate or prosecute any alcohol or drug abuse patient.[facility] HospitalIn the event this information is protected by the Federal Confidentiality of Alcohol and Drug Abuse Patient Records regulations: The Federal rules restrict any use of the information to criminally investigate or prosecute any alcohol or drug abuse patient.[facility] HospitalIn the event this information is protected by the Federal Confidentiality of Alcohol and Drug Abuse Patient Records regulations: The Federal rules restrict any use of the information to criminally investigate or prosecute any alcohol or drug abuse patient.[facility] HospitalIn the event this information is protected by the Federal Confidentiality of Alcohol and Drug Abuse Patient Records regulations: The Federal rules restrict any use of the information to criminally investigate or prosecute any alcohol or drug abuse patient.[facility] HospitalIn the event this information is protected by the Federal Confidentiality of Alcohol and Drug Abuse Patient Records regulations: The Federal rules restrict any use of the information to criminally investigate or prosecute any alcohol or drug abuse patient.[facility] HospitalIn the event this information is protected by the Federal Confidentiality of Alcohol and Drug Abuse Patient Records regulations: The Federal rules restrict any use of the information to criminally investigate or prosecute any alcohol or drug abuse patient.[facility] HospitalIn the event this information is protected by the Federal Confidentiality of Alcohol and Drug Abuse Patient Records regulations: The Federal rules restrict any use of the information to criminally investigate or prosecute any alcohol or drug abuse patient.[facility] HospitalIn the event this information is protected by the Federal Confidentiality of Alcohol and Drug Abuse Patient Records regulations: The Federal rules restrict any use of the information to criminally investigate or prosecute any alcohol or drug abuse patient.[facility] HospitalIn the event this information is protected by the Federal Confidentiality of Alcohol and Drug Abuse Patient Records regulations: The Federal rules restrict any use of the information to criminally investigate or prosecute any alcohol or drug abuse patient.[facility] HospitalIn the event this information is protected by the Federal Confidentiality of Alcohol and Drug Abuse Patient Records regulations: The Federal rules restrict any use of the information to criminally investigate or prosecute any alcohol or drug abuse patient.[facility] HospitalIn the event this information is protected by the Federal Confidentiality of Alcohol and Drug Abuse Patient Records regulations: The Federal rules restrict any use of the information to criminally investigate or prosecute any alcohol or drug abuse patient.[facility] HospitalIn the event this information is protected by the Federal Confidentiality of Alcohol and Drug Abuse Patient Records regulations: The Federal rules restrict any use of the information to criminally investigate or prosecute any alcohol or drug abuse patient.[facility] HospitalIn the event this information is protected by the Federal Confidentiality of Alcohol and Drug Abuse Patient Records regulations: The Federal rules restrict any use of the information to criminally investigate or prosecute any alcohol or drug abuse patient.[facility] HospitalIn the event this information is protected by the Federal Confidentiality of Alcohol and Drug Abuse Patient Records regulations: The Federal rules restrict any use of the information to criminally investigate or prosecute any alcohol or drug abuse patient.[facility] HospitalIn the event this information is protected by the Federal Confidentiality of Alcohol and Drug Abuse Patient Records regulations: The Federal rules restrict any use of the information to criminally investigate or prosecute any alcohol or drug abuse patient.[facility] HospitalIn the event this information is protected by the Federal Confidentiality of Alcohol and Drug Abuse Patient Records regulations: The Federal rules restrict any use of the information to criminally investigate or prosecute any alcohol or drug abuse patient.[facility] HospitalIn the event this information is protected by the Federal Confidentiality of Alcohol and Drug Abuse Patient Records regulations: The Federal rules restrict any use of the information to criminally investigate or prosecute any alcohol or drug abuse patient.[facility] HospitalIn the event this information is protected by the Federal Confidentiality of Alcohol and Drug Abuse Patient Records regulations: The Federal rules restrict any use of the information to criminally investigate or prosecute any alcohol or drug abuse patient.[facility] HospitalIn the event this information is protected by the Federal Confidentiality of Alcohol and Drug Abuse Patient Records regulations: The Federal rules restrict any use of the information to criminally investigate or prosecute any alcohol or drug abuse patient.[facility] HospitalIn the event this information is protected by the Federal Confidentiality of Alcohol and Drug Abuse Patient Records regulations: The Federal rules restrict any use of the information to criminally investigate or prosecute any alcohol or drug abuse patient.[facility] HospitalIn the event this information is protected by the Federal Confidentiality of Alcohol and Drug Abuse Patient Records regulations: The Federal rules restrict any use of the information to criminally investigate or prosecute any alcohol or drug abuse patient.[facility] HospitalIn the event this information is protected by the Federal Confidentiality of Alcohol and Drug Abuse Patient Records regulations: The Federal rules restrict any use of the information to criminally investigate or prosecute any alcohol or drug abuse patient.[facility] HospitalIn the event this information is protected by the Federal Confidentiality of Alcohol and Drug Abuse Patient Records regulations: The Federal rules restrict any use of the information to criminally investigate or prosecute any alcohol or drug abuse patient.[facility] HospitalIn the event this information is protected by the Federal Confidentiality of Alcohol and Drug Abuse Patient Records regulations: The Federal rules restrict any use of the information to criminally investigate or prosecute any alcohol or drug abuse patient.[facility] HospitalIn the event this information is protected by the Federal Confidentiality of Alcohol and Drug Abuse Patient Records regulations: The Federal rules restrict any use of the information to criminally investigate or prosecute any alcohol or drug abuse patient.[facility] HospitalIn the event this information is protected by the Federal Confidentiality of Alcohol and Drug Abuse Patient Records regulations: The Federal rules restrict any use of the information to criminally investigate or prosecute any alcohol or drug abuse patient.[facility] HospitalIn the event this information is protected by the Federal Confidentiality of Alcohol and Drug Abuse Patient Records regulations: The Federal rules restrict any use of the information to criminally investigate or prosecute any alcohol or drug abuse patient.[facility] HospitalIn the event this information is protected by the Federal Confidentiality of Alcohol and Drug Abuse Patient Records regulations: The Federal rules restrict any use of the information to criminally investigate or prosecute any alcohol or drug abuse patient.[facility] HospitalIn the event this information is protected by the Federal Confidentiality of Alcohol and Drug Abuse Patient Records regulations: The Federal rules restrict any use of the information to criminally investigate or prosecute any alcohol or drug abuse patient.[facility] HospitalIn the event this information is protected by the Federal Confidentiality of Alcohol and Drug Abuse Patient Records regulations: The Federal rules restrict any use of the information to criminally investigate or prosecute any alcohol or drug abuse patient.[facility] HospitalIn the event this information is protected by the Federal Confidentiality of Alcohol and Drug Abuse Patient Records regulations: The Federal rules restrict any use of the information to criminally investigate or prosecute any alcohol or drug abuse patient.[facility] HospitalIn the event this information is protected by the Federal Confidentiality of Alcohol and Drug Abuse Patient Records regulations: The Federal rules restrict any use of the information to criminally investigate or prosecute any alcohol or drug abuse patient.[facility] HospitalIn the event this information is protected by the Federal Confidentiality of Alcohol and Drug Abuse Patient Records regulations: The Federal rules restrict any use of the information to criminally investigate or prosecute any alcohol or drug abuse patient.[facility] HospitalIn the event this information is protected by the Federal Confidentiality of Alcohol and Drug Abuse Patient Records regulations: The Federal rules restrict any use of the information to criminally investigate or prosecute any alcohol or drug abuse patient.[facility] HospitalIn the event this information is protected by the Federal Confidentiality of Alcohol and Drug Abuse Patient Records regulations: The Federal rules restrict any use of the information to criminally investigate or prosecute any alcohol or drug abuse patient.[facility] HospitalIn the event this information is protected by the Federal Confidentiality of Alcohol and Drug Abuse Patient Records regulations: The Federal rules restrict any use of the information to criminally investigate or prosecute any alcohol or drug abuse patient.[facility] HospitalIn the event this information is protected by the Federal Confidentiality of Alcohol and Drug Abuse Patient Records regulations: The Federal rules restrict any use of the information to criminally investigate or prosecute any alcohol or drug abuse patient.[facility] HospitalIn the event this information is protected by the Federal Confidentiality of Alcohol and Drug Abuse Patient Records regulations: The Federal rules restrict any use of the information to criminally investigate or prosecute any alcohol or drug abuse patient.[facility] HospitalIn the event this information is protected by the Federal Confidentiality of Alcohol and Drug Abuse Patient Records regulations: The Federal rules restrict any use of the information to criminally investigate or prosecute any alcohol or drug abuse patient.[facility] HospitalIn the event this information is protected by the Federal Confidentiality of Alcohol and Drug Abuse Patient Records regulations: The Federal rules restrict any use of the information to criminally investigate or prosecute any alcohol or drug abuse patient.[facility] HospitalIn the event this information is protected by the Federal Confidentiality of Alcohol and Drug Abuse Patient Records regulations: The Federal rules restrict any use of the information to criminally investigate or prosecute any alcohol or drug abuse patient.[facility] HospitalIn the event this information is protected by the Federal Confidentiality of Alcohol and Drug Abuse Patient Records regulations: The Federal rules restrict any use of the information to criminally investigate or prosecute any alcohol or drug abuse patient.[facility] HospitalIn the event this information is protected by the Federal Confidentiality of Alcohol and Drug Abuse Patient Records regulations: The Federal rules restrict any use of the information to criminally investigate or prosecute any alcohol or drug abuse patient.[facility] HospitalIn the event this information is protected by the Federal Confidentiality of Alcohol and Drug Abuse Patient Records regulations: The Federal rules restrict any use of the information to criminally investigate or prosecute any alcohol or drug abuse patient.[facility] HospitalIn the event this information is protected by the Federal Confidentiality of Alcohol and Drug Abuse Patient Records regulations: The Federal rules restrict any use of the information to criminally investigate or prosecute any alcohol or drug abuse patient.[facility] HospitalIn the event this information is protected by the Federal Confidentiality of Alcohol and Drug Abuse Patient Records regulations: The Federal rules restrict any use of the information to criminally investigate or prosecute any alcohol or drug abuse patient.[facility] HospitalIn the event this information is protected by the Federal Confidentiality of Alcohol and Drug Abuse Patient Records regulations: The Federal rules restrict any use of the information to criminally investigate or prosecute any alcohol or drug abuse patient.[facility] HospitalIn the event this information is protected by the Federal Confidentiality of Alcohol and Drug Abuse Patient Records regulations: The Federal rules restrict any use of the information to criminally investigate or prosecute any alcohol or drug abuse patient.[facility] HospitalIn the event this information is protected by the Federal Confidentiality of Alcohol and Drug Abuse Patient Records regulations: The Federal rules restrict any use of the information to criminally investigate or prosecute any alcohol or drug abuse patient.[facility] FOR RECORDS PERTAINING TO PATIENTS WHO ARE [...] BE BASED ON THE PRIMARY CLINICAL RECORDS. [facility] [employer] [facility]. provides no warranty or guarantee of the accuracy or completeness of information in this document.
--- OUTSIDE RECORDS SUMMARY | 2024-11-19 02:29 | XMS_ITS | Encounter Summary ---
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 Name Role Phone Lamont Delgadoel Patricia Primary Care Provider [phone] Encounter Details Date Type Department Care Team (Late st Contact Info) Description 11/12/2024 Plan of Care Documentation [address] [id number] Social History Tobacco Use Types Packs/Day Years Used Date Smoking Tobacco: Former Cigarettes Smokeless Tobacco: Never Alcohol Use Standard Drinks/Week Comments Not Currently 0 (1 standard drink = 0.6 oz pur e alcohol) 2-3 drinks every night [facility] Utilities Answer Date Recorded In the past 12 months has [employer] electric, gas, oil, or water company threatened [...] often do you attend chur ch or methodist services? Never 10/31/2024 Do you belong to any clubs o r organizations such as orthodoxy groups, unions, fraternal or athletic groups, or [...] and heating? Not hard at all 10/31/2024 [facility] - Occupational Stress Questionnaire Answer Date Recorded Do you feel stress - tense, restless, nervous, or anxious, or unable to sleep at night because your mind is troubled all the time - these days? Not at all 10/30/2024 Hunger Vital Sign Answer Date Recorded Within [...] time in the past 12 m [place], were you homeless or living in a custodial (including now)? No 10/31/2024 Domestic Abuse Assessment [...] medical appointments or from getting medications? No 10/30/2024 Has lack of transportation k ept you from meetings, work, or from getting things needed for daily living? No 10/30/2024 HRSN Depression PHQ-2 Answer Date Recor ded Feeling down, depressed, or hopeless 0 10/30/2024 Little interest or pleasure in doing things 0 10/30/2024 Sex and Gender Information Value Date Recorded Sex Assigned at Not on file Legal Sex Male 2:00 PM EDT Gender Identity Not on file Sexual Orientation Not on file documented as of this encounter Miscellaneous Notes * Physician Team Conference - Jonathan Cruz DO - 11/12/2024 10:54 AM EDT Physician Attestation A team conference was held was led by, JONATHAN CRUZ DO, the rehabilitation physician on 11/12/24 and included members of the multidisciplinary team identified in the attendance section of this note. Issues related to Charles Stewart status include but not limited toProblem List[1] Charles Mclaughlins progress toward rehabilitation goals, impediments to attaining these goals, and associated revisions to the treatment plans and goals were discussed by the team. Details of this multidisciplinary process are included above. Issues of particular significance at this time regarding Charles Mclaughlins progress towards rehabilitation goals and treatment plan include: continued PT/OT, close medical monitoring and continued mgt and treatment of primary and comorbid diagnoses As discussed during this team conference, I concur with the decisions set forth by the members of the multidisciplinary team. Charles Stewart continues to require frequent physician visits and 24 hours per day acute rehabilitation nursing care in order to meet medical needs and progress toward the achievement of their rehabilitation goals. JONATHAN CRUZ DO [1] Patient Active Problem List Diagnosis Critical illness myopathy * Pharmacy Team Conference - REYNA Salazar - 11/12/2024 10:54 AM EDT Pharmacy: Latest Pharmacy IDT Documentation Value Time User Medications Reviewed: Considerations for Discharge 11/11/2024 11:07 AM David Santamaria PharmD Documented cosiderations for discharge: Pain; Antimicrobials 11/11/2024 11:07 AM David Santamaria PharmD Current antimicrobials: Medications Related to Antimicrobial Stewardship Dose/Rate Route Frequency Stop sulfamethoxazole-trimethoprim (BACTRIM) 800-160 MG per tablet double-strength 1 tablet 1 tablet Oral Once per day on Monday DAPTOmycin (CUBICIN) 700 mg in sodium chloride 0.9 % 114 mL IVPB 700 mg 228 mL/hr over 30 Minutes Intravenous Every 24 hours (Interval) 11/13/24 1329 valGANciclovir (VALCYTE) tablet 900 mg 900 mg Oral 2 times per day 11/11/2024 11:07 AM David Santamaria PharmD Current pain medications: Medications Related to Management of Pain acetaminophen (TYLENOL) 160 MG/5ML solution 500 mg, 500 mg, Oral, Q6H PRN, Jonathan Cruz DO, 500 mg at 11/10/24 1301 aspirin EC tablet 81 mg, 81 mg, Oral, Once a day, Jonathan Cruz DO, 81 mg at 11/11/24 0826 Buprenorphine (BUTRANS) patch 5 mcg, 5 mcg, Transdermal, Q7 Days, Jonathan Cruz DO, 5 mcg at 11/05/24 1322 And 1 other linked medication excluded by filter methocarbamol (ROBAXIN) tablet 750 mg, 750 mg, Oral, TID PRN, Jonathan Cruz DO, 750 mg at 11/11/24 1011 oxyCODONE (ROXICODONE) immediate release tablet 10 mg, 10 mg, Oral, Q6H PRN, Luís Bobby MD, 10 mg at 11/11/24 1010 11/11/2024 11:07 AM David Santamaria, BrijeshD Anti-infective Durations: Per [facility] CoPAT: daptomycin 700mg IV q24h for biliary stent infection--stopdate 11/12/24. 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 Continue Bactrim DS 1 tab PO Mon/Mon/Mon for s/p transplant prophylaxis--no stop date at this time. Inpatient Morphine Milligram Equivalents Per Day 11/05 - 11/13 Values displayed are in units of MME/Day Order Start / End Date 11/05 11/06 11/07 11/08 11/09 11/10 Yesterday Today Tomorrow Daily Totals 30.02 of 75.03 30.05 of 60.05 30.05 of 60.05 15.05 of 60.05 15.05 of 60.05 15.05 of 60.05 30.05 of 60.05 0.02 of 60.08 0 of 60.11 oxyCODONE (ROXICODONE) immediate release tablet 10 mg 10/31 - 11/24 30 of 75 30 of 60 30 of 60 15 of 60 15 of 60 15 of 60 30 of 60 0 of 60 0 of 60 Buprenorphine (BUTRANS) patch 5 mcg 11/05 - 11/12 0.02 of 0.03 0.05 of 0.05 0.05 of 0.05 0.05 of 0.050.05 of 0.05 0.05 of 0.05 0.05 of 0.05 0.02 of 0.03 -- Buprenorphine (BUTRANS) patch 10 mcg 11/12 - No end date -- -- -- -- -- -- -- 0 of 0.05 0 of 0.11 * Team Conference Discussion - REYNA Salazar - 11/12/2024 10:54 AM EDT Team Discussion Anticipated Discharge 11/15/2024 DME Recommendations: walker Services Recommended at Discharge: Home Care, PT, OT, and RN Metal Loader Training: Completed F/U Appointments for Post Discharge: liver team, pcp Suicide Risk Assessment: No Concerns identified at this time Pain Management: Pain reported as adequately managed at this time. * Case Management Team Conference - REYNA Salazar - 11/12/2024 10:54 AM EDT Nursing AssociateCrm Analyst: Discharge Plan: Discharge Destination Details : Own Home Back-up Discharge Destination: SNF/SNU Potential Barriers to Return to Prior Living (Use comments to be specific): Caregiver limitations;Capacity for self care;Mobility challenge Clinical Barriers : Clinical needs exceed caregiver capacity;Instability * Respiratory Therapy Team Conference - REYNA Salazar - 11/12/2024 10:54 AM EDT Respiratory Team Conference: * Nutrition Team Conference - REYNA Salazar - 11/12/2024 10:54 AM EDT Nutrition Team Conference: Diet Orders (From admission, onward) Start Ordered 11/13/242024 Adult NPO Diet Meds with Sips of [...] Liquid Consistency: 0 Thin (All Liquids) 10/30/242005 Height: 5' 9 (175.3 cm) Admit Weight: 159 lb (72.1 kg) Current Weight: 142 lb 12.8 oz (64.8 kg) Body mass index is 21.09 kg/m??. Calorie Count: Nutrition Intake: Oral Nutrition Risk: Patient at nutrition risk Nutrition Recommendations: Encourage intake/hydration Nutrition Update: Marginal improvement with po intake during this admission. Does not care for the food, supplying pt with snacks to supplement diet. She reiterated how poorly pt was eating at home, too, prior to transplant. Continues to decline supplements. Recent weights would suggest a significant weight loss- unsure if correct. Pt states he has had a BM since the last documented one on 11/07. Plan of Care - Nutrition Care Plans 1 Author: MARYELLEN Gorman Service: -- Author Type: Registered Dietitian Filed: 11/11/2024 4:47 PM Date of Service: 11/11/2024 4:46 PM Status: Signed Orthopedic Technician: MARYELLEN Gorman (Registered Dietitian) Problem: Malnutrition Description: [...] towards meeting > 75% estimated needs * Nursing Team Conference - REYNA Salazar - 11/12/2024 10:54 AM EDT Nursing Team Conference Bladder Continent: Continent Bladder Devices: Urinal Bladder Interventions: None Bladder: Describe level of assistance required and any barriers encountered in management: SBA for toileting / staff empties urinal Bowel Continent: Continent Bowel Devices: None Bowel Interventions: Medications (miralax and senokot) Bowel: Describe level of assistance required and any barriers encountered in management: SBA for toileting / Last BM 11/11 Pain: Patient verbalizes pain Pain - Functional Impact: Self Care/ADL's Aggravating Factors Impacting Pain: Activity Duration Alleviating Factors Impacting Pain: Rest Pain Education Provided: Patient Non-Pharmacologic Pain Interventions: Heat Applied Emotional/Spiritual Pain Interventions: Emotional Support Pain Consults Initiated or Completed: Pharmacy Pain Pharmacologic Treatments: Medicated - see MAR Opiate Use Anticipated After Discharge: Possible Pain: Describe patient response (degree, duration, reduction) to interventions during past 7 days: lower back pain Nutrition Intake: Oral Nutrition Level of Assistance: Independent Nutrition Interventions: None Nutrition: General appetite of patient over past 7 days, how diet tolerated, how responding to interventions, are boluses or supplements: taking 75% of meals Respiratory O2 Delivery System: None Respiratory Interventions: None Respiratory: Describe how patient responded to interventions during past 7 days : n/a Skin Intact: None Skin Interventions: Weight shift/Turned respositioned every 2 hours;Specialty bed-mattress Skin: Describe state of skin alterations and progress, or impediments to healing: incision is healed / right flank closed suction drain site is WNL Wound Rx: None Wound: Current Status: n/a Safety Status: Good safety awareness;Follows instructions Safety Interventions: Education;Performed rounding Safety: Describe response to interventions during past 7 days, include identified triggers for behavior episodes, and management plans: cooperative with safety plan of care Cognitive Orientation: Person;Place;Time;Date Cognitive Deficits Observed: None Cognitive: Describe interventions used during past 7 days and response: no issues Quality of Sleep: Interrupted (patient wakes to toilet 1-2 x / night) Approximate Hours Slept: 7 Sleep: Describe interventions in use and patient response during past 7 days: adequate pain control/ quiet environment Medical Issues: liver transplant Pain Issues: back pain Educational Topics: pain control Patient-Family barriers to learning: None Is patient on dialysis?: No documented in this encounter Plan of Treatment Not on file documented as of this encounter Visit Diagnoses Not on filedocumented in this encounter Care Teams Drywall Applicator Relationship Specialty Start Date End Date Rusty Delgado [address] [place] [address] PCP - General 09/30/24 documented as of this encounter
--- OUTSIDE RECORDS SUMMARY | 2024-11-19 02:30 | XMS_ITS | Encounter Summary ---
Author Organization [facility] Address [address] [place] [address] Care Team Providers Care Sales Product Manager Name Role Phone Irena Johnson MD Unavailable Vanessa Arora MD Unavailable [phone] Danny WONG MD, Rusty Gomez Primary Care Provider [phone] Carina Ziegler RN Unavailable Unavailable Source Comments In the event this information is protected by the Federal Confidentiality of Alcohol and Drug AbusePatient Records regulations: The Federal rules restrict any use of the information to criminally investigate or prosecute any alcohol or drug abuse patient.[facility] Encounter Details Date Type Department Care Team (Late st Contact Info) Description 10/02/2024 Lab Requisition [facility] [address] [place] [address] [place] [address] [address] JESUS [address] [place] [address] Social History Tobacco Use Types [...] is lower risk 7 04/25/2024 Data from: https://www.neighborhoodatlas.medicine.[facility]/. Last address used for calculation Eugene Villanueva [...] PM EDT Office Visit Transplant Center [address] [id number] KAYLIE ARELLANO 11/21/2024 5:40 PM EDT Appointment MRI Q [address] [address] Compression fracture of cervical spine, non-traumatic, with delayed healing, subsequent encounter [M48.52XG] 11/21/2024 6:20 PM EDT Appointment MRI Q [address] [address] Compression fracture of cervical spine, non-traumatic, with delayed healing, subsequent encounter [M48.52XG] 11/21/2024 7:00 PM EDT Appointment MRI Q [address] [address] Compression fracture of cervical spine, non-traumatic, with delayed healing, subsequent encounter [M48.52XG] 02/03/2025 9:00 AM EDT [facility] Neurology [address] [id number] Devyn Roach MD [address] [id number] Vertigo [R42] 02/10/2025 11:00 AM EDT Appointment Gastroenterology [address] [address] Jane Correia MD [address] [place] [address] Schedule in about 3 months to remove biliary stent documented as of this encounter Goals Goal Patient Goal Type Associated Problems Recent Progress Patient-Stated? Author Blood Pressure < 130/80 Blood Pressure 122/80( 025 5:30 PM EDT) No Vanessa Arora MD documented as of this encounter Procedures Procedure Name Priority Date/Time Associated Diagnosis Comments TYPE + SCREEN Routine 10/02/2024 5:00 AM EDT documented in this encounter Results * TYPE + SCREEN (10/02/2024 5:00 AM EDT) ABO O 10/02/2024 2:39 PM EDT [facility] Rh(D) Positive 10/02/2024 2:39 PM EDT [facility] Antibody Screen Negative 10/02/2024 2:39 PM EDT [facility] Type and Screen Expiration 10/05/2024 23:59 10/02/2024 2:39 PM EDT [facility]LOOD [facility] Blood BLOOD SPECIMEN / Unknown 10/02/2024 5:00 AM EDT 10/02/2024 1:33 PM EDT us Chelsea Trinidad MD BLOOD BANK Final Result [facility] BLOOD BANK 9500 [facility] Desk [address] [place] [address], documented in this encounter Visit Diagnoses Not on filedocumented in this encounter Additional Health Concerns Infection Onset Date Last Indicated Resolved Time COVID-19 Rule-Out 10/08/2024 10/08/2024 10/09/2024 1:41 AM EDT Respiratory Rule-Out 10/08/2024 10/08/2024 025 1:41 AM EDT Parainfluenza Virus Comment:Asymptomatic per RN 10/08/2024 10/08/2024 10/28/2024 8 :47 AM EDT documented as of this encounter Care Teams Sales Product Manager Relationship Specialty Start Date End Date Rusty Delgado II, MD 112 [facility] 110 [place] [address] PCP - General Internal Medicine 05/28/24 Irena Johnson MD 3000 [facility] 1620 [facility] [place] [place] [phone] Referring Gastroenterology 03/12/24 Vanessa Arora MD [address] [place] [address] Primary Staff Physician Cardiology 05/02/24 Carina Ziegler, RN [facility] [address] [place] [address] Registered Nurse Transplant Center 09/17/24 documented as of this encounter
--- OUTSIDE RECORDS SUMMARY | 2024-11-19 02:30 | XMS_ITS | Encounter Summary ---
Author Organization [facility] Address [address] [facility] [place] [address] Care Team Providers Care Sales Representative Rural Power Name Role Phone Rusty Delgado MD Unavailable [phone] Rusty Delgado MD Primary Care Provider [phone] Encounter Details Date Type Department Care Team (Late st Contact Info) Description 07/17/2023 Abstract [facility] Danny Whitten [address] [facility] 110 [place] [phone] Rusty Delgado MD [address] [place] [facility] 110 [place], [place] [id number] Social History Tobacco Use Types Packs/Day Years [...] Visit [facility] Danny Whitten [address] [facility] 110 [place] [phone] Rusty Delgado MD [address] [place] [facility] 110 [place], [place] [phone] documented as of this encounter Visit Diagnoses Not on filedocumented in this encounter Care Teams Sales Representative Rural Power Relationship Specialty Start Date End Date Rusty Delgado MD [address] [place] [facility] 110 [place] [address] PCP - Aeterin 04/17/22 Rusty Delgado MD [address] [place] [facility] 110 [place] [address] PCP - General Internal Medicine 11/23/22 documented as of this encounter
--- OUTSIDE RECORDS SUMMARY | 2024-11-19 02:30 | XMS_ITS | Encounter Summary ---
Author Organization [facility] Address [facility]7 [place] [address] Care Team Providers Care Lamp Decorator Name Role Phone Irena Johnson MD Unavailable Vanessa Arora MD Unavailable [phone] Danny WONG MD, Rusty Gomez Primary Care Provider [phone] Carina Ziegler RN Unavailable Unavailable Source Comments In the event this information is protected by the Federal Confidentiality of Alcohol and Drug AbusePatient Records regulations: The Federal rules restrict any use of the information to criminally investigate or prosecute any alcohol or drug abuse patient.[facility] Encounter Details Date Type Department Care Team (Late st Contact Info) Description 09/10/2024 Patient Msg Transplant Center [address] [id number] Eva Dhillon, LEO [address] [address] New Liver Degreasing Solution Reclaimer Social History Tobacco Use Types Packs/Day Years [...] is lower risk 7 04/25/2024 Data from: https://www.neighborhoodatlas.medicine.[facility]/. Last address used for calculation Eugene Genao [...] PM EDT Office Visit Transplant Center [address] [place] [address] KAYLIE ARELLANO 11/21/2024 5:40 PM EDT Appointment MRI Q [address] [address] Compression fracture of cervical spine, non-traumatic, with delayed healing, subsequent encounter [M48.52XG] 11/21/2024 6:20 PM EDT Appointment MRI Q [address] [address] Compression fracture of cervical spine, non-traumatic, with delayed healing, subsequent encounter [M48.52XG] 11/21/2024 7:00 PM EDT Appointment MRI Q [address] [address] Compression fracture of cervical spine, non-traumatic, with delayed healing, subsequent encounter [M48.52XG] 02/03/2025 9:00 AM EDT [facility] Neurology [address] [place] [address] Devyn Roach MD 0 [place] [address] Vertigo [R42] 02/10/2025 11:00 AM EDT Appointment Gastroenterology [address] [address] Jane Correia MD [address]00 [place] [address] Schedule in about 3 months to remove [...] documented as of this encounter Care Teams Lamp Decorator Relationship Specialty Start Date End Date Rusty Delgado II, MD 112 [facility] 110 [place] [address] PCP - General Internal Medicine 05/28/24 Irena Johnson MD 3000 [facility] 1620 [place] [phone] Referring Gastroenterology 03/12/24 Vanessa Arora MD [address] [place] [address] Primary Staff Physician Cardiology 05/02/24 Carina Ziegler, RN [facility] [address] [place] [address] Registered Nurse Transplant Center 09/17/24 documented as of this encounter
--- OUTSIDE RECORDS SUMMARY | 2024-11-19 02:30 | XMS_ITS | Encounter Summary ---
Author Organization [facility] Address [address] [facility] [place] [address] Care Team Providers Care Mixing Machine Tender Cork Gasket Name Role Phone Rusty Delgado MD Unavailable [phone] Rusty Delgado MD Primary Care Provider Encounter Details Date Type Department Care Team (Late st Contact Info) Description 07/18/2023 Abstract [facility] Danny Whitten [address] [facility] 110 [place] [phone] Rusty Delgado MD 112 [place] [facility] 110 [place], [place] [phone] Social History Tobacco Use Types Packs/Day Years [...] [facility] Danny Whitten [address] [facility] 110 [place] [phone] Rusty Delgado MD [address] [place] [facility] 110 [place], [place] [phone] documented as of this encounter Visit Diagnoses Not on filedocumented in this encounter Care Teams Mixing Machine Tender Cork Gasket Relationship Specialty Start Date End Date Rusty Delgado MD 112 [place] [facility] 110 [place] [address] PCP - Aeterin 04/17/22 Rusty Delgado MD 112 [place] [facility] 110 [place] [address] PCP - General Internal Medicine 11/23/22 documented as of this encounter
--- OUTSIDE RECORDS SUMMARY | 2024-11-19 02:30 | XMS_ITS | Encounter Summary ---
Author Organization [facility] Address [facility]5 [place] [address] Care Team Providers Care Soloist Dancer Name Role Phone Irena Johnson MD Unavailable Vanessa Arora MD Unavailable [phone] Danny WONG MD, Rusty Gomez Primary Care Provider [phone] Carina Ziegler RN Unavailable Unavailable Source Comments In the event this information is protected by the Federal Confidentiality of Alcohol and Drug AbusePatient Records regulations: The Federal rules restrict any use of the information to criminally investigate or prosecute any alcohol or drug abuse patient.[facility] Encounter Details Date Type Department Care Team (Late st Contact Info) Description 11/05/2024 Orders Only Transplant Center [address] [phone] Carina Ziegler, RN [address] [address] Social History Tobacco Use Types Packs/Day Years Used Date Smoking Tobacco: Former Cigarettes 1 20 1 04/20/1970 - 02/18/1991 Alcohol Use Standard Drinks/Week Comments Not Currently 0 (1 standard drink = 0.6 oz pur e alcohol) Recovering alcoholic [facility] Utilities Answer Date Recorded In the [...] is lower risk 7 04/25/2024 Data from: https://www.neighborhoodatlas.medicine.[facility].edu/. Last address used for calculation [...] PM EDT Office Visit Transplant Center [address] [address] KAYLIE ARELLANO 11/21/2024 5:40 PM EDT Appointment MRI Q [address] [address] Compression fracture of cervical spine, non-traumatic, with delayed healing, subsequent encounter [M48.52XG] 11/21/2024 6:20 PM EDT Appointment MRI Q [address] [address] Compression fracture of cervical spine, non-traumatic, with delayed healing, subsequent encounter [M48.52XG] 11/21/2024 7:00 PM EDT Appointment MRI Q [address] [address] Compression fracture of cervical spine, non-traumatic, with delayed healing, subsequent encounter [M48.52XG] 02/03/2025 9:00 AM EDT [facility] Neurology [address] [place] [address] Devyn Roach MD [address] [place], [place] [phone] Vertigo [R42] 02/10/2025 11:00 AM EDT Appointment Gastroenterology [address] [address] Jane Correia MD [address]00 [place] [address] Schedule in about 3 months to remove biliary stent documented as of this encounter Goals Goal Patient Goal Type Associated Problems Recent Progress Patient-Stated? Author Blood Pressure < 130/80 Blood Pressure 122/80( 025 5:30 PM EDT) No Vanessa Arora MD documented as of this encounter Visit Diagnoses Not on filedocumented in this encounter Care Teams Soloist Dancer Relationship Specialty Start Date End Date Rusty Delgado II, MD 112 [facility] 110 [place] [address] PCP - General Internal Medicine 05/28/24 Irena Johnson MD 3000 [facility] 1620 [facility] [place] [address] Referring Gastroenterology 03/12/24 Vanessa Arora MD [address] [place] [address] Primary Staff Physician Cardiology 05/02/24 Carina Ziegler, RN [facility] [address] [place] [address] Registered Nurse Transplant Center 09/17/24 documented as of this encounter
--- OUTSIDE RECORDS SUMMARY | 2024-11-19 02:30 | XMS_ITS | Encounter Summary ---
Author Organization [facility] Address [address] [place] [address] Care Team Providers Care Gas Leak Inspector Helper Name Role Phone Irena Johnson MD Unavailable Vanessa Arora MD Unavailable Danny WONG MD, Rusty Gomez Primary Care Provider [phone] Carina Ziegler RN Unavailable Unavailable Source Comments In the event this information is protected by the Federal Confidentiality of Alcohol and Drug AbusePatient Records regulations: The Federal rules restrict any use of the information to criminally investigate or prosecute any alcohol or drug abuse patient.[facility] Encounter Details Date Type Department Care Team (Late st Contact Info) Description 08/01/2024 Patient Msg Angio [address] [place] [address] Provider, Ccnorberto Pre procedure instructions 08/06 Social History Tobacco Use Types Packs/Day Years [...] is lower risk 7 04/25/2024 Data from: https://www.neighborhoodatlas.[facility]/. Last address used for calculation Eugene Villanueva [...] EDT Office Visit Transplant Center [address] [address] KAYLIE ARELLANO 11/21/2024 5:40 PM EDT Appointment MRI Q [address] [id number] Compression fracture of cervical spine, non-traumatic, with delayed healing, subsequent encounter [M48.52XG] 11/21/2024 6:20 PM EDT Appointment MRI Q [address] [address] Compression fracture of cervical spine, non-traumatic, with delayed healing, subsequent encounter [M48.52XG] 11/21/2024 7:00 PM EDT Appointment MRI Q [address] [address] Compression fracture of cervical spine, non-traumatic, with delayed healing, subsequent encounter [M48.52XG] 02/03/2025 9:00 AM EDT [facility] Neurology [address] [place] [address] Devyn Roach MD [address] [place] [address] Vertigo [R42] 02/10/2025 11:00 AM EDT Appointment Gastroenterology [address] [address] Jane Correia MD 0 [place] [address] Schedule in about 3 months to remove [...] EDT Parainfluenza Virus Comment:Asymptomatic per RN 10/08/2024 10/08/202410/28/2024 8 :47 AM EDT documented as of this encounter Care Teams Gas Leak Inspector Helper Relationship Specialty Start Date End Date Rusty Delgado II, MD 112 [facility] 110 [place] [address] PCP - General Internal Medicine 05/28/24 Irena Johnson MD 3000 [facility] 1620 [place] [address] Referring Gastroenterology 03/12/24 Vanessa Arora MD [address] [place] [address] Primary Staff Physician Cardiology 05/02/24 Carina Ziegler, RN [facility] [address] [facility] [place] [address] Registered Nurse Transplant Center 09/17/24 documented as of this encounter
--- OUTSIDE RECORDS SUMMARY | 2024-11-19 02:30 | XMS_ITS | Encounter Summary ---
Author Organization [facility] Address [address] [place] [address] Care Team Providers Care Manager Shop Name Role Phone Irena Johnson MD Unavailable Vanessa Arora MD Unavailable [phone] [place] WONG MD, Rusty Gomez Primary Care Provider [phone] Carina Ziegler RN Unavailable Unavailable Source Comments In the event this information is protected by the Federal Confidentiality of Alcohol and Drug AbusePatient Records regulations: The Federal rules restrict any use of the information to criminally investigate or prosecute any alcohol or drug abuse patient.[facility] Encounter Details Date Type Department Care Team (Late st Contact Info) Description 10/06/2024 Lab Requisition [facility] [address] [phone] [place]ís [place] [address] [place], [place] [phone] Social History Tobacco Use Types Packs/Day Years Used Date Smoking Tobacco: Former Cigarettes 1 20 1 04/20/1970 - 02/18/1991 Alcohol Use Standard Drinks/Week Comments Not Currently 0 (1 standard drink = 0.6 oz pur e alcohol) [facility] Utilities Answer Date Recorded In [...] is lower risk 7 04/25/2024 Data from: https://www.neighborhoodatlas.medicine.[facility].edu/. Last address used for calculation [...] of Assessment Author No 05/31/2024 4:27 PM Cecli Huntley RN * Do you have difficulty [...] PM EDT Office Visit Transplant Center [address] [address] KAYLIE ARELLANO 11/21/2024 5:40 PM EDT Appointment MRI Q [address] [address] Compression fracture of cervical spine, non-traumatic, with delayed healing, subsequent encounter [M48.52XG] 11/21/2024 6:20 PM EDT Appointment MRI Q [address] [address] Compression fracture of cervical spine, non-traumatic, with delayed healing, subsequent encounter [M48.52XG] 11/21/2024 7:00 PM EDT Appointment MRI Q [address] [address] Compression fracture of cervical spine, non-traumatic, with delayed healing, subsequent encounter [M48.52XG] 02/03/2025 9:00 AM EDT [facility] Neurology [address] [place] [address] Devyn Roach MD [address] [place] [address] Vertigo [R42] 02/10/2025 11:00 AM EDT Appointment Gastroenterology [address] [address] Jane Correia MD [address]00 [place] [address] Schedule in about 3 months to remove biliary stent documented as of this encounter Goals Goal Patient Goal Type Associated Problems Recent Progress Patient-Stated? Author Blood Pressure < 130/80 Blood Pressure 122/80( 025 5:30 PM EDT) No Vanessa Arora MD documented as of this encounter Procedures Procedure Name Priority Date/Time Associated Diagnosis Comments URIC ACID BLOOD Routine 10/06/2024 6:00 AM EDT CBC + DIFF Routine 10/06/2024 6:00 AM EDT documented in this encounter Results * (ABNORMAL) COMPLETE BLOOD COUNT AND DIFFERENTIAL (10/06/2024 6:00 AM EDT) WBC 8.66 3.70 - 11.00 k/uL 10/06/2024 12:39 PM EDT [facility] RBC 2.35(L) 4.20 - 6.00 m/uL 10/06/2024 12:39 PM EDT [facility] Hemoglobin 7.1(L) 13.0 - 17.0 g/dL 10/06/2024 12:39 PM EDT [facility] Hematocrit 22.5(L) 39.0 - 51.0 % 10/06/2024 12:39 PM EDT [facility] MCV 95.7 80.0 - 100.0 fL 10/06/2024 12:39 PM EDT [facility] MCH 30.2 26.0 - 34.0 pg 10/06/2024 12:39 PM EDT [facility] MCHC 31.6 30.5 - 36.0 g/dL 10/06/2024 12:39 PM EDT [facility] RDW-CV 16.0(H) 11.5 - 15.0 % 10/06/2024 12:39 PM EDT [facility] Platelet Count 513(H) 150 - 400 k/uL 10/06/2024 12:39 PM EDT [facility] MPV 8.8(L) 9.0 - 12.7 fL 10/06/2024 12:39 PM EDT [facility] Neutrophils % 76.0 % 10/06/2024 12:39 PM EDT [facility] Abs Neut 6.57 1.45 - 7.50 k/uL 10/06/2024 12:39 PM EDT [facility] Lymphocytes % 3.6 % 10/06/2024 12:39 PM EDT [facility] Abs Lymph 0.31(L) 1.00 - 4.00 k/uL 10/06/2024 12:39 PM EDT [facility] Monocytes % 15.2 % 10/06/2024 12:39 PM EDT [facility] Abs Catron 1.32(H) <0.87 k/uL 10/06/2024 12:39 PM EDT [facility] Eosinophils % 3.9 % 10/06/2024 12:39 PM EDT [facility] Abs Eosin 0.34 <0.46 k/uL 10/06/2024 12:39 PM EDT [facility] Basophils % 0.3 % 10/06/2024 12:39 PM EDT [facility] Abs Baso 0.03 <0.11 k/uL 10/06/2024 12:39 PM EDT [facility] Immature Granulocytes % 1.0 % 10/06/2024 12:39 PM EDT [facility] Abs Immature Gran 0.09 <0.10 k/uL 10/06/2024 12:39 PM EDT [facility] NRBC 0.0 /100 WBC 10/06/2024 12:39 PM EDT [facility] Absolute nRBC <0.01 <0.01 k/uL 10/06/2024 12:39 PM EDT [facility] Diff Type Auto 10/06/2024 12:39 PM EDT [facility] Blood BLOOD SPECIMEN / Unknown 10/06/2024 6:00 AM EDT 10/06/2024 11:58 AM EDT Luís Bobby MD LABORATORY Final Result [facility] [address] [place] [address], * URIC ACID (10/06/2024 6:00 AM EDT) Uric Acid 6.0 4.0 - 8.1 mg/dL 10/06/2024 12:59 PM EDT [facility] Blood BLOOD SPECIMEN / Unknown 10/06/2024 6:00 AM EDT 10/06/2024 11:58 AM EDT Luís Bobby MD LABORATORY Final Result Performing Organization Address City/[facility]/ZIP Co de Phone Number [facility] [address] [place] [address], documented in this encounter Visit Diagnoses Not on filedocumented in this encounter Additional Health Concerns Infection Onset Date Last Indicated Resolved Time COVID-19 Rule-Out 10/08/2024 10/08/2024 10/09/2024 1:41 AM EDT Respiratory Rule-Out 10/08/2024 10/08/2024 025 1:41 AM EDT Parainfluenza Virus Comment:Asymptomatic per RN 10/08/2024 10/08/2024 10/28/2024 8 :47 AM EDT documented as of this encounter Care Teams Manager Shop Relationship Specialty Start Date End Date Rusty Delgado II, MD 112 [facility] 110 [place] [address] PCP - General Internal Medicine 05/28/24 Irena Johnson MD 3000 [facility] 1620 [facility] [place] [place] [address] Referring Gastroenterology 03/12/24 Vanessa Arora MD [address] [place], [place] [phone] Primary Staff Physician Cardiology 05/02/24 Carina Ziegler, RN [facility] [address] [place] [address] Registered Nurse Transplant Center 09/17/24 documented as of this encounter
--- OUTSIDE RECORDS SUMMARY | 2024-11-19 02:30 | XMS_ITS | Encounter Summary ---
Author Organization [facility] Address [address] [place] [address] Care Team Providers Care Av Specialist Name Role Phone Irena Johnson MD Unavailable Vanessa Arora MD Unavailable [phone] [place] WONG MD, Rusty Gomez Primary Care Provider [phone] Carina Ziegler RN Unavailable Unavailable Source Comments In the event this information is protected by the Federal Confidentiality of Alcohol and Drug AbusePatient Records regulations: The Federal rules restrict any use of the information to criminally investigate or prosecute any alcohol or drug abuse patient.[facility] Encounter Details Date Type Department Care Team (Late st Contact Info) Description 08/12/2024 Get Medical Advice Radiation Oncology [address] [id number] Sarwat Harris MD [address] 570848 [place] [address] Biopsy results Social History Tobacco Use Types Packs/Day [...] is lower risk 7 04/25/2024 Data from: https://www.neighborhoodatlas.medicine.[facility] [place]/. Last address used for calculation Eugene [...] PM EDT Office Visit Transplant Center [address] [place] [address] KAYLIE ARELLANO 11/21/2024 5:40 PM EDT Appointment MRI Q [address] [address] Compression fracture of cervical spine, non-traumatic, with delayed healing, subsequent encounter [M48.52XG] 11/21/2024 6:20 PM EDT Appointment MRI Q [address] [address] Compression fracture of cervical spine, non-traumatic, with delayed healing, subsequent encounter [M48.52XG] 11/21/2024 7:00 PM EDT Appointment MRI Q [address] [address] Compression fracture of cervical spine, non-traumatic, with delayed healing, subsequent encounter [M48.52XG] 02/03/2025 9:[address] [facility] Neurology [address] [place] [address] Devyn Roach MD 0 [place] [address] Vertigo [R42] 02/10/2025 11:00 AM EDT Appointment Gastroenterology [address] [address] Jane Correia MD [address] [place] [address] Schedule in about 3 months to remove [...] documented as of this encounter Care Teams Av Specialist Relationship Specialty Start Date End Date Rusty Delgado II, MD 112 [facility] 110 [place] [address] PCP - General Internal Medicine 05/28/24 Irena Johnson MD 3000 [facility] 1620 [facility] [place] [address] Referring Gastroenterology 03/12/24 Vanessa Arora MD [address] [place], [place] [address] Primary Staff Physician Cardiology 05/02/24 Carina Ziegler, RN [facility] 0815 [facility] [place] [address] Registered Nurse Transplant Center 09/17/24 documented as of this encounter
--- OUTSIDE RECORDS SUMMARY | 2024-11-19 02:30 | XMS_ITS | Encounter Summary ---
Author Organization [facility] Address [address] [facility] [place] [address] Care Team Providers Care Orthopedic Physical Therapist Name Role Phone Rusty Delgado MD Unavailable [phone] Rusty Delgado MD Primary Care Provider Encounter Details Date Type Department Care Team (Late st Contact Info) Description 06/14/2023 Abstract [facility] [place] Whitten [address] [facility] 110 [place] [id number] Rusty Delgado MD 112 [facility] 110 [place], [place] [phone] Social History Tobacco Use Types Packs/Day Years [...] [place] Whitten [address] [facility] 110 [place] [phone] Rusty Delgado MD 112 [facility] 110 [place], [place] [id number] documented as of this encounter Visit Diagnoses Not on filedocumented in this encounter Care Teams Orthopedic Physical Therapist Relationship Specialty Start Date End Date Rusty Delgado MD 112 [facility] 110 [place] [address] PCP - [employer] 04/17/22 Rusty Delgado MD 112 [facility] 110 [place] [address] PCP - General Internal Medicine 11/23/22 documented as of this encounter
--- OUTSIDE RECORDS SUMMARY | 2024-11-19 02:30 | XMS_ITS | Encounter Summary ---
Author Organization [facility] Address [address] [place] [address] Care Team Providers Care Wall Cleaner Name Role Phone Irena Johnson MD Unavailable Vanessa Arora MD Unavailable [phone] [place] WONG MD, Rusty Gomez Primary Care Provider [phone] Carina Ziegler RN Unavailable Unavailable Source Comments In the event this information is protected by the Federal Confidentiality of Alcohol and Drug AbusePatient Records regulations: The Federal rules restrict any use of the information to criminally investigate or prosecute any alcohol or drug abuse patient.[facility] Encounter Details Date Type Department Care Team (Late st Contact Info) Description 08/19/2024 Get Medical Advice Radiation Oncology [address] [phone] Sarwat Harris MD [address] 556548 [place] [address] Back pain Social History Tobacco Use Types Packs/Day Years [...] is lower risk 7 04/25/2024 Data from: https://www.neighborhoodatlas.medicine.[facility]/. Last address [...] PM EDT Office Visit Transplant Center [address] [place] [address] KAYLIE ARELLANO 11/21/2024 5:40 PM EDT Appointment MRI Q [address] [address] Compression fracture of cervical spine, non-traumatic, with delayed healing, subsequent encounter [M48.52XG] 11/21/2024 6:20 PM EDT Appointment MRI Q [address] [address] Compression fracture of cervical spine, non-traumatic, with delayed healing, subsequent encounter [M48.52XG] 11/21/2024 7:00 PM EDT Appointment MRI Q [address] [address] Compression fracture of cervical spine, non-traumatic, with delayed healing, subsequent encounter [M48.52XG] 02/03/2025 9:00 AM EDT [facility] Neurology [address] [place] [address] Devyn Roach MD 0 [place] [address] Vertigo [R42] 02/10/2025 11:00 AM EDT Appointment Gastroenterology [address] [address] Jane Correia MD 9500 [place] [address] Schedule in about 3 months to remove [...] documented as of this encounter Care Teams Wall Cleaner Relationship Specialty Start Date End Date Rusty Delgado II, MD 112 [facility] 110 [place] [address] PCP - General Internal Medicine 05/28/24 Irena Johnson MD 3000 [facility] 1620 [facility] [place] [address] Referring Gastroenterology 03/12/24 Vanessa Arora MD [address] [place] [place], [place] [address] Primary Staff Physician Cardiology 05/02/24 Carina Ziegler, RN [facility] [address] [facility] [place] [address] Registered Nurse Transplant Center 09/17/24 documented as of this encounter
--- OUTSIDE RECORDS SUMMARY | 2024-11-19 02:30 | XMS_ITS | Encounter Summary ---
Author Organization [facility] Address [address] [place] [address] Care Team Providers Care Convention Services Manager Name Role Phone Irena Johnson MD Unavailable Vanessa Arora MD Unavailable [phone] [place] WONG MD, Daniel B Primary Care Provider [phone] Carina Ziegler RN Unavailable Unavailable Source Comments In the event this information is protected by the Federal Confidentiality of Alcohol and Drug AbusePatient Records regulations: The Federal rules restrict any use of the information to criminally investigate or prosecute any alcohol or drug abuse patient.[facility] Encounter Details Date Type Department Care Team (Late st Contact Info) Description 08/14/2024 [place] [address] Provider, [facility]cf Colonoscopy Chief Ii Dispatcher Enrollment Social History Tobacco Use Types Packs/Day Years [...] is lower risk 7 04/25/2024 Data from: https://www.neighborhoodatlas.[facility]/. Last address used for calculation Eugene [...] PM EDT Office Visit Transplant Center [address] [address] KAYLIE ARELLANO 11/21/2024 5:40 PM EDT Appointment MRI Q [address] [id number] Compression fracture of cervical spine, non-traumatic, with delayed healing, subsequent encounter [M48.52XG] 11/21/2024 6:20 PM EDT Appointment MRI Q [address] [address] Compression fracture of cervical spine, non-traumatic, with delayed healing, subsequent encounter [M48.52XG] 11/21/2024 7:00 PM EDT Appointment MRI Q [address] [address] Compression fracture of cervical spine, non-traumatic, with delayed healing, subsequent encounter [M48.52XG] 02/03/2025 9:00 AM EDT [facility] Neurology [address] [place] [address] Devyn Roach MD [address]00 [place] [address] Vertigo [R42] 02/10/2025 11:00 AM EDT Appointment Gastroenterology [address] [address] Jane Correia MD 9500 [place] [address] Schedule in about 3 months to remove [...] documented as of this encounter Care Teams Convention Services Manager Relationship Specialty Start Date End Date Rusty Delgado II, MD 112 [facility] 110 [place] [address] PCP - General Internal Medicine 05/28/24 Irena Johnson MD 3000 [facility] 1620 [place] [address] Referring Gastroenterology 03/12/24 Vanessa Arora MD [address] [place] [address] Primary Staff Physician Cardiology 05/02/24 Carina Ziegler, RN [facility] [address] [facility] [address] Registered Nurse Transplant Center 09/17/24 documented as of this encounter
--- OUTSIDE RECORDS SUMMARY | 2024-11-19 02:30 | XMS_ITS | Encounter Summary ---
Author Organization [facility] Address [address] [facility] [place] [address] Care Team Providers Care Sheeter Waxer Operator Name Role Phone Rusty Delgado MD Unavailable [phone] Rusty Delgado MD Primary Care Provider [phone] Encounter Details Date Type Department Care Team (Late st Contact Info) Description 09/12/2023 Clinisync Result Encounter [facility] External Department Unsolicited Galo Esparza MD [address] [facility] [address] [place], [place] [address] Social History Tobacco Use Types Packs/Day Years [...] 1:36 PM EDT Sexual Orientation Asexual 12/12/2023 1 :36 PM EDT documented as of this encounter Plan of Treatment Upcoming Encounters Date Type Department Care Team (Late st Contact Info) Description 11/20/2024 11:00 AM EDT Office Visit [facility] [place] Whitten [address] [facility] 110 [place] [address] Rusty Delgado MD [address] [facility] 110 [place] [address] documented as of this encounter Procedures Procedure Name Priority Date/Time Associated Diagnosis Comments MR HEAD/BRAIN WO CON 09/12/2023 11:15 AM EDT documented in this encounter Results * MR HEAD/BRAIN WO CON (09/12/2023 11:15 AM EDT) Anatomical Region Laterality Modality Other 09/12/2023 11:1 5 AM EDT Narrative 09/12/2023 11:17 AM EDT [address] [address] Magnetic Resonance Report Signed Patient: CHARLES BLANDON MR#: [id number] : 1955 Acct:[id number] Age/Sex: 68 / M ADM Date: 09/12/23 Loc: MRI Attending Dr: Galo Esparza M.D. Ordering Physician: GALO ESPARZA Date of Service: 09/12/23 Procedure(s): MR head/brain wo con Accession Number(s): [id number] cc: GALO ESPARZA ; RUSTY DELGADO [address] [address] Patient Name: CHARLES BLANDON MRN: [id number] date: 1955 Sex: M Assigned Patient Location: MRI Current Patient Location: MRI Accession/Order Number: [id number] Exam Date: 09/12/2023 08:17 Report Date: 09/12/2023 11:15 At the request of: GALO ESPARZA Procedure: MR head/brain wo con EXAMINATION: MR head/brain wo con HISTORY: Episodic Altered Awareness R40.4, Confusion R41.0 COMPARISON: No relevant comparison available. TECHNIQUE: A variety of imaging planes and parameters were utilized for visualization of suspected pathology. Images were performed without contrast. FINDINGS: CEREBRUM: Prominent T2 hyperintensities within the periventricular and subcortical deep white matter bilaterally favoring chronic small vessel ischemic changes. No edema, hemorrhage, mass, acute infarction, or inappropriate atrophy. CEREBELLUM: No edema, hemorrhage, mass, acute infarction, or inappropriate atrophy. BRAINSTEM: No edema, hemorrhage, mass, acute infarction, or inappropriate atrophy. CSF SPACES: Ventricles, cisterns, and sulci are appropriate for age. No hydrocephalus, subarachnoid hemorrhage, or mass. SKULL: No mass or other significant visible lesion. SINUSES: Limited views demonstrate no significant mucosal thickening or fluid. ORBITS: Limited views are unremarkable. OTHER: Negative. MR/MR head/brain wo con IMPRESSION: 1. Age consistent atrophy and prominent chronic small vessel ischemic changes, likely age related. 2. No mass, infarction, or other specific findings to account for patient's symptoms. Electronically authenticated by: GALO STERN Date: 09/12/2023 11:15 Dictated By: Galo Stern M.D. Signed By: 09/12/23 1117 DD/ 1115 TD/TT: Food Scientist: Procedure Note Radiology, Radiologist, MD - 09/12/2023 [place] [address] Magnetic Resonance Report Signed Patient: CHARLES BLANDON EMR#: [id number] : 1955cct:[id number] Age/Sex: 68 / MADM Date: 09/12/23 Loc: MRI Attending Dr: Galo Esparza M.D. Ordering Physician: GALO ESPARZA Date of Service: 09/12/23 Procedure(s): MR head/brain wo con Accession Number(s): [id number] cc: GALO ESPARZA ; RUSTY DELGADO [address] [place] [address] Patient Name: CHARLES BLANDON MRN: [id number] date: 1955 Sex: M Assigned Patient Location: MRI Current Patient Location: MRI Accession/Order Number: [id number] Exam Date: 09/12/2023 08:17 Report Date: 09/12/2023 11:15 At the request of: GALO ESPARZA Procedure: MR head/brain wo con EXAMINATION: MR head/brain wo con HISTORY: Episodic Altered Awareness R40.4, Confusion R41.0 COMPARISON: No relevant comparison available. TECHNIQUE: A variety of imaging planes and parameters were utilized for visualization of suspected pathology. Images were performed withoutcontrast. FINDINGS: CEREBRUM: Prominent T2 hyperintensities within the periventricular and subcortical deep white matter bilaterally favoring chronic small vessel ischemic changes. No edema, hemorrhage, mass, acute infarction, or inappropriate atrophy. CEREBELLUM: No edema, hemorrhage, mass, acute infarction, or inappropriate atrophy. BRAINSTEM: No edema, hemorrhage, mass, acute infarction, or inappropriate atrophy. CSF SPACES: Ventricles, cisterns, and sulci are appropriate for age. No hydrocephalus, subarachnoid hemorrhage, or mass. SKULL: No mass or other significant visible lesion. SINUSES: Limited views demonstrate no significant mucosal thickening orfluid. ORBITS: Limited views are unremarkable. OTHER: Negative. MR/MR head/brain wo con IMPRESSION: 1. Age consistent atrophy and prominent chronic small vessel ischemicchanges, likely age related. 2. No mass, infarction, or other specific findings to account forpatient's symptoms. Electronically authenticated by: GALO STERN Date: 09/12/2023 11:15 Dictated By: Galo Stern M.D. Signed By:09/12/23 1117 DD/ 1115 TD/TT: Food Scientist: Galo Esparza MD [facility] Final Resul t documented in this encounter Visit Diagnoses Not on filedocumented in this encounter Care Teams Sheeter Waxer Operator Relationship Specialty Start Date End Date Rusty Delgado MD [address] [facility] 110 [place] [address] PCP - [employer] 04/17/22 Rusty Delgado MD [address] [facility] 110 [place] [address] PCP - General Internal Medicine 11/23/22 documented as of this encounter
--- OUTSIDE RECORDS SUMMARY | 2024-11-19 02:30 | XMS_ITS | Encounter Summary ---
Author Organization [facility] Address [facility] [place] [address] Care Team Providers Care Steward/Stewardess Room Name Role Phone Irena Johnson MD Unavailable Vanessa Arora MD Unavailable [phone] [place] WONG MD, Rusty Gomez Primary Care Provider [phone] Carina Ziegler RN Unavailable Unavailable Source Comments In the event this information is protected by the Federal Confidentiality of Alcohol and Drug AbusePatient Records regulations: The Federal rules restrict any use of the information to criminally investigate or prosecute any alcohol or drug abuse patient.[facility] Encounter Details Date Type Department Care Team (Late st Contact Info) Description 10/01/2024 Patient Msg Gastroenterology [address] [address] Provider, Ccf Dr. Khan letter Social History Tobacco Use Types Packs/Day Years [...] is lower risk 7 04/25/2024 Data from: https://www.neighborhoodatlas.medicine.[facility]/. Last address used for calculation [...] PM EDT Office Visit Transplant Center [address] [address] KAYLIE ARELLANO 11/21/2024 5:40 PM EDT Appointment MRI Q [address] [address] Compression fracture of cervical spine, non-traumatic, with delayed healing, subsequent encounter [M48.52XG] 11/21/2024 6:20 PM EDT Appointment MRI Q [address] [address] Compression fracture of cervical spine, non-traumatic, with delayed healing, subsequent encounter [M48.52XG] 11/21/2024 7:00 PM EDT Appointment MRI Q [address] [address] Compression fracture of cervical spine, non-traumatic, with delayed healing, subsequent encounter [M48.52XG] 02/03/2025 9:00 AM EDT [facility] Neurology 9300 [place] [address] Devyn Roach MD 9500 [place] [address] Vertigo [R42] 02/10/2025 11:00 AM EDT Appointment Gastroenterology [address] [address] Jane Correia MD 9500 [place] [address] Schedule in about 3 months to remove [...] documented as of this encounter Care Teams Steward/Stewardess Room Relationship Specialty Start Date End Date Rusty Delgado II, MD 112 [facility] 110 [place] [address] PCP - General Internal Medicine 05/28/24 Irena Johnson MD 3000 [facility] 1620 [place] [address] Referring Gastroenterology 03/12/24 Vanessa Arora MD [address] [place] [address] Primary Staff Physician Cardiology 05/02/24 Carina Ziegler, RN [facility] 950 [place] [address] Registered Nurse Transplant Center 09/17/24 documented as of this encounter
--- OUTSIDE RECORDS SUMMARY | 2024-11-19 02:30 | XMS_ITS | Encounter Summary ---
Author Organization [facility] Address [address] [place] [address] Care Team Providers Care Pipe Inspector Name Role Phone Irena Johnson MD Unavailable Vanessa Arora MD Unavailable [phone] [place] WONG MD, Rusty Gomez Primary Care Provider [phone] Carina Ziegler RN Unavailable Unavailable Source Comments [...] st Contact Info) Description 10/06/2024 Lab Requisition [facility] [address] [place] [address] [place]ís [place] [address] [place] [address] Social History Tobacco Use Types Packs/Day Years Used Date Smoking Tobacco: Former Cigarettes 1 20 1 04/20/1970 - 02/18/1991 Alcohol Use Standard Drinks/Week Comments Not Currently 0 (1 standard drink = 0.6 oz pur e alcohol) [facility] Utilities Answer Date Recorded In [...] is lower risk 7 04/25/2024 Data from: https://www.neighborhoodatlas.medicine.[facility].edu/. Last address used for calculation [...] EDT Office Visit Transplant Center [address] [address] KAYLIE ARELLANO 11/21/2024 5:40 PM EDT Appointment MRI Q [address] [address] Compression fracture of cervical spine, non-traumatic, with delayed healing, subsequent encounter [M48.52XG] 11/21/2024 6:20 PM EDT Appointment MRI Q [address] [address] Compression fracture of cervical spine, non-traumatic, with delayed healing, subsequent encounter [M48.52XG] 11/21/2024 7:00 PM EDT Appointment MRI Q [address] [address] Compression fracture of cervical spine, non-traumatic, with delayed healing, subsequent encounter [M48.52XG] 02/03/2025 9:00 AM EDT [facility] Neurology [address] [place] [address] Devyn Roach MD [address]00 [place] [address] Vertigo [R42] 02/10/2025 11:00 AM EDT Appointment Gastroenterology [address] [address] Jane Correia MD 9505 [place] [address] Schedule in about 3 months to remove biliary stent documented as of this encounter Goals Goal Patient Goal Type Associated Problems Recent Progress Patient-Stated? Author Blood Pressure < 130/80 Blood Pressure 122/80( 025 5:30 PM EDT) No Vanessa Arora MD documented as of this encounter Procedures Procedure Name Priority Date/Time Associated Diagnosis Comments TYPE + SCREEN Routine 10/06/2024 6:00 AM EDT documented in this encounter Results * TYPE + SCREEN (10/06/2024 6:00 AM EDT) ABO O 10/06/2024 4:04 PM EDT [facility] Rh(D) Positive 10/06/2024 4:04 PM EDT [facility] Antibody Screen Negative 10/06/2024 4:04 PM EDT [facility] Type and Screen Expiration 10/09/2024 23:59 10/06/2024 4:04 PM EDT [facility] BLOOD B[facility] Blood BLOOD SPECIMEN / Unknown Venipuncture / Unknown 10/06/2024 6:00 AM EDT 10/06/2024 11:20 AM EDT us Luís Bobby MD BLOOD BANK Final Result [facility] [address] [facility] [address] [place] [address], documented in this encounter Visit Diagnoses Not on filedocumented in this encounter Additional Health Concerns Infection Onset Date Last Indicated Resolved Time COVID-19 Rule-Out 10/08/2024 10/08/2024 10/09/2024 1:41 AM EDT Respiratory Rule-Out 10/08/2024 10/08/2024 025 1:41 AM EDT Parainfluenza Virus Comment:Asymptomatic per RN 10/08/2024 10/08/2024 10/28/2024 8 :47 AM EDT documented as of this encounter Care Teams Pipe Inspector Relationship Specialty Start Date End Date Rusty Delgado II, MD 112 [facility] 110 [place] [address] PCP - General Internal Medicine 05/28/24 Irena Johnson MD 3000 [facility] 1620 [facility] [place] [address] Referring Gastroenterology 03/12/24 Vanessa Arora MD [address] [place] [address] Primary Staff Physician Cardiology 05/02/24 Carina Ziegler, [facility] [address] [place] [address] Registered Nurse Transplant Center 09/17/24 documented as of this encounter
--- OUTSIDE RECORDS SUMMARY | 2024-11-19 02:30 | XMS_ITS | Encounter Summary ---
Author Organization [facility] Address [address] [place] [address] Care Team Providers Care Air Conditioning Mechanic Industrial Name Role Phone Irena Johnson MD Unavailable Vanessa Arora MD Unavailable [phone] [place] WONG MD, Rusty Gomez Primary Care Provider [phone] Carnia Ziegler RN Unavailable Unavailable Source Comments In the event this information is protected by the Federal Confidentiality of Alcohol and Drug AbusePatient Records regulations: The Federal rules restrict any use of the information to criminally investigate or prosecute any alcohol or drug abuse patient.[facility] Encounter Details Date Type Department Care Team (Late st Contact Info) Description 07/31/2024 Get Medical Advice Radiation Oncology [address] [id number] Sarwat Harris MD [address] [id number] [place] [address] Spine Biopsy Social History Tobacco Use Types Packs/Day Years [...] is lower risk 7 04/25/2024 Data from: https://www.neighborhoodatlas.medicine.[facility]/. Last address used for calculation Eugene [...] PM EDT Office Visit Transplant Center [address] [place] [address] KAYLIE ARELLANO 11/21/2024 5:40 PM EDT Appointment MRI Q [address] [address] Compression fracture of cervical spine, non-traumatic, with delayed healing, subsequent encounter [M48.52XG] 11/21/2024 6:20 PM EDT Appointment MRI Q [address] [address] Compression fracture of cervical spine, non-traumatic, with delayed healing, subsequent encounter [M48.52XG] 11/21/2024 7:00 PM EDT Appointment MRI Q [address] [address] Compression fracture of cervical spine, non-traumatic, with delayed healing, subsequent encounter [M48.52XG] 02/03/2025 9:00 AM EDT [facility] Neurology [address] [place] [address] Devyn Roach MD 0 [place] [address] Vertigo [R42] 02/10/2025 11:00 AM EDT Appointment Gastroenterology [address] [address] Jane Correia MD [address] [place] [address] Schedule in about 3 months to remove [...] documented as of this encounter Care Teams Air Conditioning Mechanic Industrial Relationship Specialty Start Date End Date Rusty Delgado II, MD 112 [facility] 110 [place] [address] PCP - General Internal Medicine 05/28/24 Irena Johnson MD 3000 [facility] 1620 [facility] [place] [address] Referring Gastroenterology 03/12/24 Vanessa Arora MD [address] [place], [place] [phone] Primary Staff Physician Cardiology 05/02/24 Craina Ziegler, RN [facility] [address] [facility] [address] Registered Nurse Transplant Center 09/17/24 documented as of this encounter
--- OUTSIDE RECORDS SUMMARY | 2024-11-19 02:30 | XMS_ITS | Encounter Summary ---
Author Organization [facility] Address [address] [place] [address] Care Team Providers Care Equipment Technician Name Role Phone Irena Johnson MD Unavailable Vanessa Arora MD Unavailable [phone] [place] WONG MD, Daniel B Primary Care Provider [phone] Carina Ziegler RN Unavailable Unavailable Source Comments In the event this information is protected by the Federal Confidentiality of Alcohol and Drug AbusePatient Records regulations: The Federal rules restrict any use of the information to criminally investigate or prosecute any alcohol or drug abuse patient.[facility] Encounter Details Date Type Department Care Team (Late st Contact Info) Description 08/13/2024 [place] [address] Provider, Ccf MRI Screening Questionnaire Completion Required Social History Tobacco Use Types Packs/Day Years [...] is lower risk 7 04/25/2024 Data from: https://www.neighborhoodatlas.[facility]/. Last address used for calculation Eugene Villanueva [...] PM EDT Office Visit Transplant Center [address] [address] KAYLIE ARELLANO 11/21/2024 5:40 PM EDT Appointment MRI Q [address] [phone] Compression fracture of cervical spine, non-traumatic, with delayed healing, subsequent encounter [M48.52XG] 11/21/2024 6:20 PM EDT Appointment MRI Q [address] [address] Compression fracture of cervical spine, non-traumatic, with delayed healing, subsequent encounter [M48.52XG] 11/21/2024 7:00 PM EDT Appointment MRI Q [address] [address] Compression fracture of cervical spine, non-traumatic, with delayed healing, subsequent encounter [M48.52XG] 02/03/2025 9:00 AM EDT [facility] Neurology [address] [place] [address] Devyn Roach MD [address] [place] [address] Vertigo [R42] 02/10/2025 11:00 AM EDT Appointment Gastroenterology [address] [address] Jane Correia MD [address] [place] [address] Schedule in about 3 months to remove [...] documented as of this encounter Care Teams Equipment Technician Relationship Specialty Start Date End Date Rusty Delgado II, MD 112 [facility] 110 [place] [address] PCP - General Internal Medicine 05/28/24 Irena Johnson MD 3000 [facility] 1620 [place] [phone] Referring Gastroenterology 03/12/24 Vanessa Arora MD [address] [place] [address] Primary Staff Physician Cardiology 05/02/24 Carina Ziegler, RN [facility] 3640 [facility] [place] [address] Registered Nurse Transplant Center 09/17/24 documented as of this encounter
--- OUTSIDE RECORDS SUMMARY | 2024-11-19 02:30 | XMS_ITS | Encounter Summary ---
Author Organization [facility] Address [address] [place] [address] Care Team Providers Care Software Test Technician Name Role Phone Irena Johnson MD Unavailable Vanessa Arora MD Unavailable [phone] [place] WONG MD, Rusty Gomez Primary Care Provider [phone] Carina Ziegler RN Unavailable Unavailable Source Comments In the event this information is protected by the Federal Confidentiality of Alcohol and Drug AbusePatient Records regulations: The Federal rules restrict any use of the information to criminally investigate or prosecute any alcohol or drug abuse patient.[facility] Encounter Details Date Type Department Care Team (Late st Contact Info) Description 08/06/2024 Patient Msg Gastroenterology [address] [phone] Connie Garg MD [address] [place] [address] Labs Social History Tobacco Use Types Packs/Day Years [...] risk 7 04/25/2024 Data from: https://www.neighborhoodatlas.medicine.[facility]/. Last address [...] PM EDT Office Visit Transplant Center [address] [phone] KAYLIE ARELLANO 11/21/2024 5:40 PM EDT Appointment MRI Q [address] [address] Compression fracture of cervical spine, non-traumatic, with delayed healing, subsequent encounter [M48.52XG] 11/21/2024 6:20 PM EDT Appointment MRI Q [address] [address] Compression fracture of cervical spine, non-traumatic, with delayed healing, subsequent encounter [M48.52XG] 11/21/2024 7:00 PM EDT Appointment MRI Q [address] [address] Compression fracture of cervical spine, non-traumatic, with delayed healing, subsequent encounter [M48.52XG] 02/03/2025 9:00 AM EDT [facility] Neurology [address] [place] [address] Devyn Roach MD [address] [place] [address] Vertigo [R42] 02/10/2025 11:00 AM EDT Appointment Gastroenterology [address] [address] Jane Correia MD [address]00 [place] [address] Schedule in about 3 months to remove [...] documented as of this encounter Care Teams Software Test Technician Relationship Specialty Start Date End Date Rusty Delgado II, MD 112 [facility] 110 [place] [address] PCP - General Internal Medicine 05/28/24 Irena Johnson MD 3000 [address] [place] 1620 [facility] [place] [place] [address] Referring Gastroenterology 03/12/24 Vanessa Arora MD [address] [place], [place] [phone] Primary Staff Physician Cardiology 05/02/24 Carina Ziegler, RN [facility] [address] [place] [address] Registered Nurse Transplant Center 09/17/24 documented as of this encounter
--- OUTSIDE RECORDS SUMMARY | 2024-11-19 02:30 | XMS_ITS | Encounter Summary ---
Author Organization [facility] Address [facility] [place] [address] Care Team Providers Care Resort Housekeeper Name Role Phone Irena Johnson MD Unavailable Vanessa Arora MD Unavailable [phone] [place] WONG MD, Rusty Gomez Primary Care Provider [phone] Carina Ziegler RN Unavailable Unavailable Source Comments In the event this information is protected by the Federal Confidentiality of Alcohol and Drug AbusePatient Records regulations: The Federal rules restrict any use of the information to criminally investigate or prosecute any alcohol or drug abuse patient.[facility] Encounter Details Date Type Department Care Team (Late st Contact Info) Description 10/01/2024 Results Follow-Up Transplant Center [address] [place] [id number] Carina Ziegler, RN [address] [address] Social History Tobacco Use Types Packs/Day Years [...] is lower risk 7 04/25/2024 Data from: https://www.neighborhoodatlas.medicine.[facility]/. Last address used for calculation Eugene Villanueva [...] documented in this encounter Miscellaneous Notes * Result Encounter Note - Carina Ziegler RN - 10/01/2024 2:38 PM EDT Reviewed liver transplant results and stable-r/w team at [place] f/u call today Carina Ziegler RN (Molly), BSN, [facility] Liver Residential Real Estate Assistant documented in this encounter Plan of Treatment Upcoming Encounters Date Type Department Care Team (Late st Contact Info) Description 11/21/2024 4:00 PM EDT Office Visit Transplant Center [address] [address] [place] LASHAWN ARELLANO 11/21/2024 5:40 PM EDT Appointment MRI Q [address] [address] Compression fracture of cervical spine, non-traumatic, with delayed healing, subsequent encounter [M48.52XG] 11/21/2024 6:20 PM EDT Appointment MRI Q [address] [address] Compression fracture of cervical spine, non-traumatic, with delayed healing, subsequent encounter [M48.52XG] 11/21/2024 7:00 PM EDT Appointment MRI Q [address] [address] Compression fracture of cervical spine, non-traumatic, with delayed healing, subsequent encounter [M48.52XG] 02/03/2025 9:00 AM EDT [facility] Neurology [address] [place] [address] Devyn Roach MD [address] [place], [place] [phone] Vertigo [R42] 02/10/2025 11:00 AM EDT Appointment Gastroenterology [address] [address] Jane Correia MD [address]00 [place] [address] Schedule in about 3 months to remove [...] documented as of this encounter Care Teams Resort Housekeeper Relationship Specialty Start Date End Date Rusty Delgado II, MD 112 [facility] 110 [place] [address] PCP - General Internal Medicine 05/28/24 Irena Johnson MD 3000 [facility] 1620 [place] [phone] Referring Gastroenterology 03/12/24 Vanessa Arora MD [address] [place] [address] Primary Staff Physician Cardiology 05/02/24 Carina Ziegler, RN [facility] [address] [place] [address] Registered Nurse Transplant Center 09/17/24 documented as of this encounter
--- OUTSIDE RECORDS SUMMARY | 2024-11-19 02:30 | XMS_ITS | Encounter Summary ---
Author Organization [facility] Address [address] [place] [address] Care Team Providers Care Printing Shop Supervisor Name Role Phone Rusty Delgado MD Unavailable [phone] Rusty Delgado MD Primary Care Provider [phone] Encounter Details Date Type Department Care Team (Late st Contact Info) Description 10/03/2023 Clinisync Result Encounter [facility] External Department Unsolicited [...] [place] Whitten [address] [place] 110 [place] [phone] Rusty Delgado MD [address] [place] 110 [place], [place] [phone] documented as of this encounter Procedures Procedure Name Priority Date/Time Associated Diagnosis Comments US PARACENTESIS ABD W/IMAGE 10/03/2023 1:11 PM EDT IGG, SUBCLASSES(1-4) Routine 10/03/2023 12:40 PM EDT PROTEIN, BODY FLUID Routine 10/03/2023 1 2:[address], SEROUS FLUID Routine 10/03/2023 12:00 PM EDT ALL MISCELLANEOUS TEST Routine 12:00 PM EDT documented in this encounter Results * US PARACENTESIS ABD W/IMAGE (10/03/2023 1:11 PM EDT) Anatomical Region Laterality Modality Other 10/03/2023 1:11 PM EDT Narrative 10/03/2023 1:14 [place] [address] Ultrasound Report Signed Patient: LOYD BLANDON MR#: [id number] : 1955 Acct:[id number] Age/Sex: 68 / M ADM Date: 10/03/23 Loc: US Attending Dr: Arias Miles M.D. Ordering Physician: Arias Miles M.D. Date of Service: 10/03/23 Procedure(s): US paracentesis abd w/image Accession Number(s): [id number] cc: RUSTY DELGADO ; Arias Miles M.D. [address] [id number] Patient Name: LOYD BLANDON MRN: [id number] date: 1955 Sex: M Assigned Patient Location: US Current Patient Location: US Accession/Order Number: [id number] Exam Date: 10/03/2023 10:50 Report Date: 10/03/2023 13:11 At the request of: ARIAS MILES Procedure: US paracentesis abd w/image EXAMINATION: US paracentesis abd w/image HISTORY: Ascites COMPARISON: CTA pelvis 09/25/2023 DESCRIPTION: Informed consent was obtained. The patient was prepped and draped in standard sterile fashion. Ultrasound-guided paracentesis was performed in the usual sterile manner using 1% Xylocaine. FINDINGS: SITE: Right lower quadrant NEEDLE: Paracentesis 8 Fr. Catheter over 18 gauge needle MEDICATION: 1% buffered Xylocaine for local anesthesia FLUID DESCRIPTION: Minimally opaque, yellowish fluid. FLUID VOLUME: 3.6 L COMPLICATIONS: None LABORATORY: Pending OTHER: Negative. US/US paracentesis abd w/image IMPRESSION: 1. Successful paracentesis with removal of 3.6 L of fluid. 2. Laboratory results are pending. Electronically authenticated by: GALO STERN Date: 10/03/2023 13:11 Dictated By: Galo Stern M.D. Signed By: 10/03/23 1314 DD/ 1311 TD/TT: Traffic Ii Manager: Procedure Note Radiology, Radiologist, MD - 10/03/2023 [place] [address] Ultrasound Report Signed Patient: LOYD BLANDON EMR#: [id number] : 1955cct:[id number] Age/Sex: 68 / MADM Date: 10/03/23 Loc: US Attending Dr: Arias Miles M.D. Ordering Physician: Arias Miles M.D. Date of Service: 10/03/23 Procedure(s): US paracentesis abd w/image Accession Number(s): [id number] cc: RUSTY DELGADO ; Arias Miles M.D. [address] [place] [id number] Patient Name: LOYD BLANDON MRN: [id number] date: 1955 Sex: M Assigned Patient Location: US Current Patient Location: US Accession/Order Number: [id number] Exam Date: 10/03/2023 10:50 Report Date: 10/03/2023 13:11 At the request of: ARIAS MILES Procedure: US paracentesis abd w/image EXAMINATION: US paracentesis abd w/image HISTORY: Ascites COMPARISON: CTA pelvis 09/25/2023 DESCRIPTION: Informed consent was obtained. The patient was prepped anddraped in standard sterile fashion. Ultrasound-guided paracentesis was performedin the usual sterile manner using 1% Xylocaine. FINDINGS: SITE: Right lower quadrant NEEDLE: Paracentesis 8 Fr. Catheter over 18 gauge needle MEDICATION: 1% buffered Xylocaine for local anesthesia FLUID DESCRIPTION: Minimally opaque, yellowish fluid. FLUID VOLUME: 3.6 L COMPLICATIONS: None LABORATORY: Pending OTHER: Negative. US/US paracentesis abd w/image IMPRESSION: 1. Successful paracentesis with removal of 3.6 L of fluid. 2. Laboratory results are pending. Electronically authenticated by: GALO STERN Date: 10/03/2023 13:11 Dictated By: Galo Stern M.D. Signed By:10/03/23 1314 DD/ 1311 TD/TT: Traffic Ii Manager: Generic External Data Provider [facility]AG[facility] Final Result * (ABNORMAL) IGG, SUBCLASSES(1-4) (10/03/2023 12:40 PM EDT) IMMUNOGLOBULIN G, QN, SERUM 1577 603 - 1613 mg/dL [facility] IGG, SUBCLASS 1 855(A) 248 - 810 mg/dL [facility] IGG, SUBCLASS 2 365 130 - 555 mg/dL [facility] IGG, SUBCLASS 3 68 15 - 102 mg/dL [facility] IGG, SUBCLASS 4 52 2 - 96 mg/dL [facility] Comment: Performed at: - [address] [id number] Motors Assembler: John Tang PhD, Phone: [phone] 10/03/2023 12:4 0 PM EDT 10/03/2023 12:41 PM EDT Narrative [facility]IN[facility] - 10/04/2023 3:09 PM EDT Generic External Data Provider LAB BLOOD ORDERAB LES Final Result [facility] * PROTEIN, BODY FLUID (10/03/2023 12:00 PM EDT) PROTEIN, BODY FLUID 1.1 . g/dL [facility] Comment: : BODY FLUID TYPE : TOTAL PROTEIN : : : : : Amniotic Fluid : <0.4 : : : : : : Nonmalignant: <3.0 : : Ascitic Fluid : Malignant: >3.0 : : : : : Bile, Clear : <0.9 : : : : : Bile, Yellow : 0.2 - 0.6 : : : : : Lymph : 2.2 - 6.0 : : : : : Human Milk : 1.9 - 2.0 : : : : : Nasal Secretion : 0.1 - 3.5 : : : : : Pancreatic : 0.0 - 0.1 : : Juice : (post stimulation) : : : : : : Transudate: <0.3 : : Pleural Fluid : Exudate: >0.3 : : : : : Saliva : 0.1 - 0.2 : : (Mixed Glands) : : : : : : Synovial Fluid : <2.5 : : : : : Tears : 0.8 - 0.9 : : : : Marleny WMarsha V. Reference Intervals for Adults and Children 2007. Ninth Edition (V9.1) [facility]; [place]: October 2008. Performed at: [address] [id number] Motors Assembler: John Tang PhD, Phone: [phone] 10/03/2023 12:0 0 PM EDT 10/03/2023 1:04 PM EDT Narrative MALLORY - 10/05/2023 7:10 AM EDT us Generic External Data Provider LAB BLOOD ORDERAB LES Final Result [facility] * CELL CT, SEROUS FLUID (10/03/2023 12:00 PM EDT) COLOR, SEROUS Straw . [facility] Comment: Colorless to Pale Yellow/Straw CLARITY, SEROUS Slightly hazy Clear [facility] NUCLEATED CELLS, SEROUS 366 0 - 499 /mm3 [facility] Comment: Pleural Fluid, with <1000 Nucleated cells/uL has been associated with transudates while >1000 uL may be seen in exudates. RBC, SEROUS 0 Not Estab. /uL [facility] NEUT, SEROUS 13 0 - 24 % [facility] LYMPHOCYTES, SEROUS 9 Not Estab. % [facility] MACROPHAGES, SEROUS 71 Not Estab. % [facility] EOSINOPHILS, SEROUS 0 Not Estab. % [facility] LINING CELLS, SEROUS 7 Not Estab. % [facility] Comment: Performed at: [address] [id number] Motors Assembler: John Tang PhD, Phone: [phone] COMMENTS: TNP . [facility] 10/03/2023 12:0 0 PM EDT 10/03/2023 1:37 PM EDT Narrative CLINISYNC - 10/04/2023 1:12 PM EDT us Generic External Data Provider LAB BLOOD ORDERAB LES Final Result [facility] * ALL MISCELLANEOUS TEST (10/03/2023 12:00 PM EDT) MISCELLANEOUS TEST COMMENT . [facility] Comment: Test Ordered: [id number] Albumin, Body Fluid Albumin, Body Fluid 0.4 g/dL CB Reference Range: Not Estab. The reference interval(s) and other method performance specifications have not been established for this body fluid. The test result must be integrated into the clinical context for interpretation. Performed at: [address] [id number] Motors Assembler: John Tang PhD, Phone: [phone] 10/03/2023 12:0 0 PM EDT 10/03/2023 1:04 PM EDT Narrative CLINISYNC - 10/05/2023 7:10 AM EDT [id number] Albumin, Body Fluid us Generic External Data Provider CLINYI F inal Result MALLORY [facility] documented in this encounter Visit Diagnoses Not on filedocumented in this encounter Care Teams Printing Shop Supervisor Relationship Specialty Start Date End Date Rusty Delgado MD [address] [facility] 110 [place] [address] PCP - [employer] 04/17/22 Rusty Delgado MD [address] [facility] 110 [place] [address] PCP - General Internal Medicine 11/23/22 documented as of this encounter
--- OUTSIDE RECORDS SUMMARY | 2024-11-19 02:30 | XMS_ITS | Encounter Summary ---
Author Organization [facility] Address [address] [place] [address] Care Team Providers Care Hypoid Gear Tester Name Role Phone Rusty Delgado MD Unavailable [phone] Rusty Delgado MD Primary Care Provider [phone] Encounter Details Date Type Department Care Team (Late st Contact Info) Description 06/22/2023 Orders Only [facility] [address] [facility] [address] [place] [phone] Virginie Roy LPN 703 [facility] [address] [place] [address] Social History Tobacco Use Types Packs/Day Years [...] Office Visit [facility] [place] [address] [facility] 110 [place] [phone] Rusty Delgado MD 112 [facility] 110 [place] [phone] documented as of this encounter Visit Diagnoses Not on filedocumented in this encounter Care Teams Hypoid Gear Tester Relationship Specialty Start Date End Date Rusty Delgado MD 112 [place] [facility] 110 [place] [address] PCP - [employer] 04/17/22 Rusty Delgado MD [address] [place] [facility] 110 [place] [address] PCP - General Internal Medicine 11/23/22 documented as of this encounter
--- OUTSIDE RECORDS SUMMARY | 2024-11-19 02:30 | XMS_ITS | Clinical Summary ---
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 Indications: Acute Heart Attack. 11/16/19 25 Active Buprenorphine (BUTRANS) 10 MCG/HR patch weeklyIndicat ions:Chronic Pain Place 1 patch (10 mcg total) on the skin every 7 days Indications: Chronic Pain. 11/20/19 25 Active famotidine (PEPCID) 20 MG tablet Take 1 tablet (20 mg total) by mouth in the morning and 1 tablet (20 mg total) before bedtime. 11/16/19 25 Active magnesium hydroxide (MILK OF MAGNESIA) 400 MG/5ML suspension Take 30 mL by mouth daily as needed for constipation (if patient prefers Oral medication). 11/16/19 25 Active magnesium oxide 400 (240-250 Mg) MG tablet Take 2 tablets (800 mg total) by mouth 3 (three) times a day. 11/16/19 25 Active methocarbamol (ROBAXIN) 750 MG tablet Take 1 tablet (750 mg total) by mouth 3 (three) times a day as needed for muscle spasms. 11/16/19 25 Active midodrine (PROAMATINE) 10 MG tablet Take 1 tablet (10 mg total) by mouth in the morning and 1 tablet (10 mg total) at noon and 1 tablet (10 mg total) in the evening. 11/16/19 25 Active mirtazapine (REMERON) 7.5 MG tablet Take 1 tablet (7.5 mg total) by mouth nightly. 11/16/19 25 Active multivitamin w/ minerals (THERA M PLUS) Tab/Cap tablet Take 1 each (1 tablet total) by mouth in the morning. 11/16/19 25 Active oxyCODONE (ROXICODONE) 5 MG immediate release tabletIndicat ions:Acute Pain Take 1-2 tablets (5-10 mg total) by mouth every 6 (six) hours as needed (5mg moderate pain, 10mg severe pain) for up to 9 days Indications: Acute Pain. Max Daily Amount: 40 mg 11/16/19 25 025 Active pantoprazole (PROTONIX) 40 MG EC/DR tablet Take 1 tablet (40 mg total) by mouth in the morning and 1 tablet (40 mg total) in the evening. Take before meals. 11/16/19 25 Active sulfamethoxaz ole-trimethop rim (BACTRIM) 800-160 MG per tablet double-streng thIndications :prophylaxis Take 1 tablet by mouth 3 (three) times a week Indications: prophylaxis. 11/19/19 25 Active simethicone (MYLICON) 80 MG chewable tablet Chew 1 tablet (80 mg total) in the morning and 1 tablet (80 mg total) at noon and 1 tablet (80 mg total) in the evening and 1 tablet (80 mg total) before bedtime. 11/16/19 25 Active tacrolimus (PROGRAF) 5 MG capsule Take 1 capsule (5 mg total) by mouth in the morning and 1 capsule (5 mg total) before bedtime. 11/16/19 25 Active tamsulosin (FLOMAX) 0.4 MG capsule Take 1 capsule (0.4 mg total) by mouth nightly. 11/16/19 25 Active traZODone (DESYREL) 50 MG tablet Take 1 tablet (50 mg total) by mouth nightly. 11/16/19 25 Active ursodiol (ACTIGALL) 300 MG capsule Take 1 capsule (300 mg total) by mouth 3 (three) times a day. 11/16/19 25 Active ciprofloxacin (CIPRO) 500 MG tabletIndicat ions:Prophyla xis s/p procedure Take 1 tablet (500 mg total) by mouth in the morning and 1 tablet (500 mg total) before bedtime. Do all this for 9 doses. Indications: Prophylaxis s/p procedure. 9 tablet 11/16/19 25 025 Active acyclovir (ZOVIRAX) 400 MG tablet Take 1 tablet (400 mg total) by mouth in the morning and 1 tablet (400 mg total) before bedtime. 11/16/19 25 Active ciprofloxacin (CIPRO) 500 MG tabletIndicat ions:Prophyla xis s/p procedure Take 1 tablet (500 mg total) by mouth in the morning and 1 tablet (500 mg total) before bedtime. Do all this for 9 doses. Indications: Prophylaxis s/p procedure. 11/16/19 25 025 Discontinued valGANciclovi r (VALCYTE) 450 MG tablet Take 2 tablets (900 mg total) by mouth in the morning and 2 tablets (900 mg total) before bedtime. 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 Encounters Date Type Department Care Team Description 11/12/2024 Plan of Care Documentation [address] [address] 11/05/2024 Plan of Care Documentation [address] [address] 10/30/2024 7:01 PM EDT - 11/15/2024 1:51 PM EDT Hospital Encounter [address] [address] Jonathan Cruz, Critical illness myopathy (Primary Dx) Discharge Disposition: Discharged Home/Self Care 10/08/2024 Plan of Care Documentation [address] [address] 10/01/2024 Plan of Care Documentation [address] [address] 09/29/2024 5:17 PM EDT - 10/07/2024 7:51 PM EDT Hospital Encounter [address] [place] [address] Jonathan Cruz, Discharge Disposition: To Short-Term Hospital for IP Care from Last 3 Months Immunizations Immunization Administration Dates Next Due Hep B, Unspecified 08/28/2024,06/15/2024, 025 Influenza, Unspecified 01/24/2023 Moderna SARS-CoV-2 Vaccination 06/24/2020,2020 Pneumococcal Conjugate 03/04/2024 RSV, Recombinant 06/10/2024 Zoster 04/30/2022 Social History Tobacco Use Types Packs/Day Years Used Date Smoking Tobacco: Former Cigarettes Smokeless Tobacco: Never Tobacco Cessation:Counseling Given: Not Answered Alcohol Use Standard Drinks/Week Comments Not Currently 0 (1 standard drink = 0.6 oz pur e alcohol) 2-3 drinks every night [facility] Utilities Answer Date Recorded In the past 12 months has th e [facility], gas, oil, or water company threatened to [...] often do you attend chur ch or zoroastrian services? Never 10/31/2024 Do you belong to any clubs o r organizations such as sikhism groups, unions, fraternal or athletic groups, or [...] and heating? Not hard at all 10/31/2024 [facility] [place] of Occupat ional Health - Occupational Stress [...] living in a usp (including now)? No 10/31/2024 Domestic Abuse Assessment [...] - Reported To Not on file 10/30/2024 [facility] Transportation Source Answer Da te Recorded Has [...] on file Sexual Orientation Not on file Last Filed Vital Signs [...] Mass Index 21.56 10/30/2024 8:00 PM EDT Plan of Treatment Health Maintenance Due Date Last Done Comments CT Colonography 1953 FIT-DNA (Cologuard) 1953 FIT 1953 FOBT 1953 Sigmoidoscopy 1955 Annual Visit Topic 1954 Hepatitis C Screening 08/03/1971 Pneumococcal Vaccine: 65+ Years (1 of 2 - PCV) 08/03/2003 Abdominal Aortic Aneurysm (AAA) Screening 2018 DTaP/Tdap/Td Vaccines (2 - T d or Tdap) 03/22/2032 03/22/2022 Colonoscopy 08/31/2034 08/31/2024 Colorectal Cancer Screening 08/31/2034 Hepatitis A Vaccines Aged Out 08/28/2024, 05/02/2024 No longer eligible based on patient's age to complete this topic Hepatitis B Vaccines Completed 08/28/2024, 06/15/2024, 05/02/2024 HIB Vaccines Aged Out No longer eligi [...] on patient's age to complete this topic Procedures Procedure Name Priority Date/Time Associated Diagnosis Comments PHOSPHORUS Routine 11/15/2024 5:30 AM EDT COMPREHENSIVE METABOLIC PANEL Routine 11/15/2024 5:30 AM EDT CBC WITH AUTO DIFFERENTIAL Routine 11/15/2024 5:30 AM EDT MAGNESIUM Routine 11/15/2024 5:30 AM EDT MAGNESIUM Routine 11/14/2024 3:30 AM EDT GAMMA GT Routine 11/14/2024 3:30 AM EDT C-REACTIVE PROTEIN Routine 11/14/2024 3: 30 AM EDT COMPREHENSIVE METABOLIC PANEL Routine 11/14/2024 3:30 AM EDT CBC WITH AUTO DIFFERENTIAL Routine 11/14/2024 3:30 AM EDT N-TERMINAL PROBNP Routine 11/14/2024 3:3 0 AM EDT TACROLIMUS LEVEL Routine 11/14/2024 3:30 AM EDT PHOSPHORUS Routine 11/14/2024 3:30 AM EDT MAGNESIUM Routine 11/11/2024 5:06 AM EDT GAMMA GT Routine 11/11/2024 5:06 AM EDT C-REACTIVE PROTEIN Routine 11/11/2024 5: 06 AM EDT COMPREHENSIVE METABOLIC PANEL Routine 11/11/2024 5:06 AM EDT CMV DNA, QUANTITATIVE, PCR Routine 11/11/2024 5:06 AM EDT CBC WITH AUTO DIFFERENTIAL Routine 11/11/2024 5:06 AM EDT N-TERMINAL PROBNP Routine 11/11/2024 5:0 6 AM EDT TACROLIMUS LEVEL Routine 11/11/2024 5:06 AM EDT PHOSPHORUS Routine 11/11/2024 5:06 AM EDT MAGNESIUM Routine 11/09/2024 6:05 AM EDT RENAL FUNCTION PANEL Routine 11/09/2024 6:05 AM EDT URINALYSIS W/REFLEX TO MICROSCOPIC Routine 11/08/2024 6:23 PM EDT US RENAL COMPLETE STAT 11/08/2024 1:0 0 PM EDT PHOSPHORUS Routine 11/08/2024 5:21 AM EDT BASIC METABOLIC PANEL Routine 11/08/2024 5:21 AM EDT MAGNESIUM Routine 11/08/2024 5:21 AM EDT XR ABDOMEN 1 VW STAT 11/07/2024 2:24 PM EDT MAGNESIUM Routine 11/07/2024 10:56 AM EDT GAMMA GT Routine 11/07/2024 10:56 AM EDT C-REACTIVE PROTEIN Routine 11/07/2024 10 :56 AM EDT COMPREHENSIVE METABOLIC PANEL Routine 11/07/2024 10:56 AM EDT CBC WITH AUTO DIFFERENTIAL Routine 11/07/2024 10:56 AM EDT N-TERMINAL PROBNP Routine 11/07/2024 10: 56 AM EDT TACROLIMUS LEVEL Routine 11/07/2024 10:5 6 AM EDT PHOSPHORUS Routine 11/07/2024 10:56 AM EDT US ABDOMEN LTD (E.G, SPLEEN, RUG) STAT 11/06/2024 3:45 PM EDT XR LUMBAR SPINE 1 VWS STAT 11/04/2024 3:30 PM EDT CPK Routine 11/04/2024 5:10 AM EDT MAGNESIUM Routine 11/04/2024 5:10 AM EDT GAMMA GT Routine 11/04/2024 5:10 AM EDT C-REACTIVE PROTEIN Routine 11/04/2024 5: 10 AM EDT COMPREHENSIVE METABOLIC PANEL Routine 11/04/2024 5:10 AM EDT CMV DNA, QUANTITATIVE, PCR Routine 11/04/2024 5:10 AM EDT CBC WITH AUTO DIFFERENTIAL Routine 11/04/2024 5:10 AM EDT N-TERMINAL PROBNP Routine 11/04/2024 5:1 0 AM EDT TACROLIMUS LEVEL Routine 11/04/2024 5:10 AM EDT PHOSPHORUS Routine 11/04/2024 5:10 AM EDT US ABDOMEN LTD (E.G, SPLEEN, RUG) Routine 11/03/2024 1:28 PM EDT RENAL FUNCTION PANEL Routine 11/03/2024 5:05 AM EDT MAGNESIUM Routine 11/03/2024 5:05 AM EDT CBC WITH AUTO DIFFERENTIAL Routine 11/02/2024 6:40 AM EDT MAGNESIUM Routine 11/02/2024 6:40 AM EDT RENAL FUNCTION PANEL Routine 11/02/2024 6:40 AM EDT XR CHEST 1 VW Routine 11/01/2024 2:39 PM EDT N-TERMINAL PROBNP Routine 11/01/2024 5:0 1 AM EDT VITAMIN B12 Routine 11/01/2024 5:01 AM EDT FOLATE Routine 11/01/2024 5:01 AM EDT FERRITIN Routine 11/01/2024 5:01 AM EDT IRON AND TIBC Routine 11/01/2024 5:01 AM EDT CBC WITH AUTO DIFFERENTIAL Routine 11/01/2024 5:01 AM EDT RENAL FUNCTION PANEL Routine 11/01/2024 5:01 AM EDT MAGNESIUM Routine 11/01/2024 5:01 AM EDT N-TERMINAL PROBNP Routine 10/31/2024 4:5 2 AM EDT PHOSPHORUS Routine 10/31/2024 4:52 AM EDT TACROLIMUS LEVEL Routine 10/31/2024 4:52 AM EDT C-REACTIVE PROTEIN Routine 10/31/2024 4: 52 AM EDT GAMMA GT Routine 10/31/2024 4:52 AM EDT MAGNESIUM Routine 10/31/2024 4:52 AM EDT COMPREHENSIVE METABOLIC PANEL Routine 10/31/2024 4:52 AM EDT CBC WITH AUTO DIFFERENTIAL Routine 10/31/2024 4:[address] ABDOMEN PELVIS WO CONTRAST STAT 10/07/2024 3:00 PM EDT XR ABDOMEN 1 VW STAT 10/07/2024 10:49 AM EDT US ABDOMEN LTD (E.G, SPLEEN, RUG) STAT 10/07/2024 10:35 AM EDT TACROLIMUS LEVEL Routine 10/07/2024 5:24 AM EDT MAGNESIUM Routine 10/07/2024 5:24 AM EDT GAMMA GT Routine 10/07/2024 5:24 AM EDT C-REACTIVE PROTEIN Routine 10/07/2024 5: 24 AM EDT COMPREHENSIVE METABOLIC PANEL Routine 10/07/2024 5:24 AM EDT CMV DNA, QUANTITATIVE, PCR Routine 10/07/2024 5:24 AM EDT CBC WITH AUTO DIFFERENTIAL Routine 10/07/2024 5:24 AM EDT N-TERMINAL PROBNP Routine 10/07/2024 5:2 4 AM EDT XR CHEST 1 VW STAT 10/06/2024 2:59 PM EDT XR ABDOMEN 1 VW STAT 10/06/2024 2:59 PM EDT US ABDOMEN LTD (E.G, SPLEEN, RUG) STAT 10/06/2024 12:59 PM EDT TYPE AND SCREEN Routine 10/06/2024 6:00 AM EDT CBC WITH AUTO DIFFERENTIAL Routine 10/06/2024 6:00 AM EDT URIC ACID Routine 10/06/2024 6:00 AM EDT XR FOOT RIGHT 3+ VWS Routine 10/05/2024 2:07 PM EDT CBC WITH AUTO DIFFERENTIAL Routine 10/05/2024 6:04 AM EDT CBC WITH AUTO DIFFERENTIAL Routine 10/04/2024 6:32 AM EDT MAGNESIUM Routine 10/04/2024 6:32 AM EDT RENAL FUNCTION PANEL Routine 10/04/2024 6:32 AM EDT B OH BUTYRATE Routine 10/04/2024 6:32 AM EDT LACTIC ACID/LACTATE Routine 10/04/2024 6 :32 AM EDT POCT GLUCOSE Routine 10/03/2024 6:25 AM EDT TACROLIMUS LEVEL Routine 10/03/2024 5:35 AM EDT MAGNESIUM Routine 10/03/2024 5:35 AM EDT GAMMA GT Routine 10/03/2024 5:35 AM EDT C-REACTIVE PROTEIN Routine 10/03/2024 5: 35 AM EDT COMPREHENSIVE METABOLIC PANEL Routine 10/03/2024 5:35 AM EDT CBC WITH AUTO DIFFERENTIAL Routine 10/03/2024 5:35 AM EDT N-TERMINAL PROBNP Routine 10/03/2024 5:3 5 AM EDT POCT GLUCOSE Routine 10/02/2024 4:23 PM EDT POCT GLUCOSE Routine 10/02/2024 6:01 AM EDT TYPE AND SCREEN Routine 10/02/2024 5:00 AM EDT CBC Routine 10/02/2024 4:12 AM EDT VITAMIN B12 Routine 10/02/2024 4:12 AM EDT FOLATE Routine 10/02/2024 4:12 AM EDT IRON AND TIBC Routine 10/02/2024 4:12 AM EDT FERRITIN Routine 10/02/2024 4:12 AM EDT TACROLIMUS LEVEL Routine 10/02/2024 4:12 AM EDT POCT GLUCOSE Routine 10/01/2024 4:30 PM EDT POCT GLUCOSE Routine 10/01/2024 11:37 AM EDT POCT GLUCOSE Routine 10/01/2024 6:55 AM EDT CBC WITH AUTO DIFFERENTIAL Routine 10/01/2024 4:45 AM EDT C-REACTIVE PROTEIN Routine 10/01/2024 4: 45 AM EDT MAGNESIUM Routine 10/01/2024 4:45 AM EDT POCT GLUCOSE Routine 09/30/2024 8:51 PM EDT POCT GLUCOSE Routine 09/30/2024 4:19 PM EDT POCT GLUCOSE Routine 09/30/2024 11:14 AM EDT TACROLIMUS LEVEL Routine 09/30/2024 7:00 AM EDT MAGNESIUM Routine 09/30/2024 7:00 AM EDT GAMMA GT Routine 09/30/2024 7:00 AM EDT C-REACTIVE PROTEIN Routine 09/30/2024 7: 00 AM EDT COMPREHENSIVE METABOLIC PANEL Routine 09/30/2024 7:00 AM EDT CMV DNA, QUANTITATIVE, PCR Routine 09/30/2024 7:00 AM EDT CBC WITH AUTO DIFFERENTIAL Routine 09/30/2024 7:00 AM EDT N-TERMINAL PROBNP Routine 09/30/2024 7:0 0 AM EDT POCT GLUCOSE Routine 09/30/2024 6:52 AM EDT POCT GLUCOSE Routine 09/29/2024 9:12 PM EDT ECG 12 LEAD STAT 09/29/2024 5:07 PM EDT from Last 3 Months Results * PHOSPHORUS (11/15/2024 5:30 AM EDT) Only the most recent of7 resultswithin the time period is included. Phosphorus 4.7 2.7 - 4.8 mg/dL 11/15/2024 10:09 AM EDT [facility] Blood 11/15/2024 5:30 AM EDT 11/15/2024 9:05 AM EDT Barry Meyers APRN LAB BLOOD ORDERABLES Final Re sult [facility] [address] [place] [address] [facility] [id number] [place] [id number] * MAGNESIUM (11/15/2024 5:30 AM EDT) Only the most recent of16 resultswithin the time period is included. Magnesium 2.1 1.7 - 2.3 mg/dL 11/15/2024 10:09 AM EDT [facility] Blood (Blood, Venous) 11/15/2024 5:30 AM EDT 11/15/2024 9:05 AM EDT us Barry Mitchell Meyers [employer] LAB BLOOD ORDERABLES Final Re sult [facility] [address] [place] [address] [facility] [address] [place] [address] * (ABNORMAL) COMPREHENSIVE METABOLIC PANEL (11/15/2024 5:30 AM EDT) Only the most recent of9 resultswithin the time period is included. Total Protein 5.5(L) 6.3 - 8.0 g/dL 11/15/2024 10:09 AM EDT [facility] Albumin 2.9(L) 3.9 - 4.9 g/dL 11/15/2024 10:09 AM EDT [facility] Calcium 8.6 8.5 - 10.2 mg/dL 11/15/2024 10:09 AM EDT [facility] Bilirubin, Total 0.2 0.2 - 1.3 mg/dL 11/15/2024 10:[facility] Alkaline phosphatase 143(H) 38 - 113 U/L 11/15/2024 10:09 AM EDT [facility] AST 20 14 - 40 U/L 11/15/2024 10:09 AM [facility] ALT (SGPT) 11 10 - 54 U/L 11/15/2024 10:09 AM [facility] Glucose 88 74 - 99 mg/dL 11/15/2024 10:09 AM [facility] Comment: The [place] [employer] (ADA) provides guidance for [...] Standards of Medical Care in Diabetes 2016, [place] [employer]. Diabetes Care. 2016.39(Suppl 1). BUN 17 9 - 24 mg/dL 11/15/2024 10:09 AM EDT [facility] Creatinine, Ser 1.52(H) 0.73 - 1.22 mg/dL 11/15/2024 10:09 AM EDT [facility] Sodium 135(L) 136 - 144 mmol/L 11/15/2024 10:09 AM EDT [facility] Potassium 5.1 3.7 - 5.1 mmol/L 11/15/2024 10:09 AM EDT [facility] Chloride 101 98 - 107 mmol/L 11/15/2024 10:09 AM EDT [facility] CO2 22 22 - 30 mmol/L 11/15/2024 10:09 AM [facility] Anion Gap 12 8 - 15 mmol/L 11/15/2024 10:09 AM EDT [facility] Estimated glomerular filtration rate 49(L) >=60 mL/min/1. 73m 11/15/2024 10:09 AM [facility] Comment: Estimated Glomerular Filtration Rate (eGFR) [...] EDT 11/15/2024 9:05 AM EDT us Luís Bobby MD LAB BLOOD ORDERABLES Final Resu lt [facility] [address] [place] [address] [facility] [address] [place] [address] * (ABNORMAL) N-Terminal ProBNP (11/14/2024 3:30 AM EDT) Only the most recent of9 resultswithin the time period is included. NT PRO BNP 543(H) <125 pg/mL 11/14/2024 11:01 AM EDT [facility] Blood (Blood, Venous) 11/14/2024 3:30 AM EDT 11/14/2024 9:09 AM EDT Jonathan Patricia Anthony DO LAB BLOOD ORDERABLES Final R esult [facility] [address] [place] [address] [facility] [address] [place] [address] * (ABNORMAL) CBC AUTO DIFFERENTIAL (11/14/2024 3:30 AM EDT) Only the most recent of14 resultswithin the time period is included. WBC 2.59(L) 3.70 - 11.00 k/uL 11/14/2024 11:54 AM EDT [facility] RBC 2.40(L) 4.20 - 6.00 m/uL 11/14/2024 11:54 AM [facility] Hemoglobin 7.2(L) 13.0 - 17.0 g/dL 11/14/2024 11:54 AM [facility] Hematocrit 23.9(L) 39.0 - 51.0 % 11/14/2024 11:54 AM [facility] MCV 99.6 80.0 - 100.0 fL 11/14/2024 11:54 AM EDT [facility] MCH 30.0 26.0 - 34.0 pg 11/14/2024 11:54 AM [facility] MCHC 30.1(L) 30.5 - 36.0 g/dL 11/14/2024 11:54 AM EDT [facility] RDW-CV 19.1(H) 11.5 - 15.0 % 11/14/2024 11:54 AM EDT [facility] Platelets 507(H) 150 - 400 k/uL 11/14/2024 11:54 AM EDT [facility] MPV 9.1 9.0 - 12.7 fL 11/14/2024 11:54 AM [facility] Neutrophils Relatives 74.2 % 11/14/2024 11:54 AM EDT [facility] Neutrophils Absolute 1.92 1.45 - 7.50 k/uL 11/14/2024 11:54 AM EDT [facility] Lymphocytes % by manual count 15.8 % 11/14/2024 11:54 AM EDT [facility] Lymphocytes Absolute 0.41(L) 1.00 - 4.00 k/uL 11/14/2024 11:54 AM EDT [facility] Monocytes % by manual count= 3.1 % 11/14/2024 11:54 AM EDT [facility] Monocytes Absolute 0.08 <0.87 k/uL 11/14/2024 11:54 AM EDT [facility] Eosinophils Manual 0.4 % 11/14/2024 11:54 AM EDT [facility] Eosinophils Absolute <0.03 <0.46 k/uL 11/14/2024 11:54 AM EDT [facility] Basophils manual 2.3 % 11/15/19 11:54 AM EDT [facility] Basophils Absolute 0.06 <0.11 k/uL 11/14/2024 11:54 AM EDT [facility] Immature grans % 4.2 % 11/15/19 11:54 AM EDT [facility] Grans (Absolute) 0.11(H) <0.10 k/uL 11/14/2024 11:54 AM EDT [facility] NRBC % Auto 1.2 /100 WBC 11/14/2024 11:54 AM EDT [facility] Absolute NRBC 0.03(H) <0.01 k/uL 11/14/2024 11:54 AM EDT [facility] Differential Type Auto 025 11:54 AM [facility] Blood (Blood, Venous) 11/14/2024 3:30 AM EDT 11/14/2024 9:09 AM EDT us Jonathan Cruz DO LAB BLOOD ORDERABLES Final R esult [facility] [address] [place] [address] [facility] [address] [place] [address] * Tacrolimus level (11/14/2024 3:30 AM EDT) Only the most recent of9 resultswithin the time period is included. [facility] Tacrolimus Lvl 10.2 5.0 - 20.0 ng/mL 11/14/2024 5:[address] [facility] Comment: Individualized target levels for a [...] situation. Test performed by chemiluminescent immunoassay using [employer] i. Blood (Blood, Venous) 11/14/2024 3:30 AM EDT 11/14/2024 2:16 PM EDT [facility] BLOOD ORDERABLES Final R [facility] Performing Organization Address [facility] de Phone Number [address] LAB [address] [place] [address] * (ABNORMAL) C-REACTIVE PROTEIN (11/14/2024 3:30 AM EDT) Only the most recent of9 resultswithin the time period is included. [facility] CRP 20.7(H) <0.9 mg/dL 11/14/2024 11:32 AM EDT [facility] Blood (Blood, Venous) 11/14/2024 3:30 AM EDT 11/14/2024 9:09 AM EDT [facility] BLOOD ORDERABLES Final R esult Performing Organization Address [facility] Co de Phone Number [facility] [address] [place] [address] [facility] [address] [place], [place] [id number] * GAMMA GT (11/14/2024 3:30 AM EDT) Only the most recent of8 resultswithin the time period is included. [facility] GGT 70 10 - 70 U/L 11/14/2024 5:[address] [facility] Blood (Blood, Venous) 11/14/2024 3:30 AM EDT 11/14/2024 1:11 PM EDT [facility] BLOOD ORDERABLES Final R esult Performing Organization Address [facility] de Phone Number [address] LAB [address] [place] [address] * CMV DNA, QUANTITATIVE, PCR (11/11/2024 5:06 AM EDT) Only the most recent of4 resultswithin the time period is included. Pathologist [facility] Cytomegalovirus LOG (copies/mL) Not detected Not Detected 11/11/2024 10:[address] [facility] Blood (Blood, Venous) 11/11/2024 5:06 AM EDT 11/11/2024 1:39 PM EDT [facility]LOOD [facility] Performing Organization Address [facility] de Phone Number [place] [phone] [facility] [address] [place] [address] * (ABNORMAL) Renal Function Panel (11/09/2024 6:05 AM EDT) Only the most recent of5 resultswithin the time period is included. Albumin 3.0(L) 3.9 - 4.9 g/dL 11/10/2024 9:11 AM EDT [facility] Calcium 8.6 8.5 - 10.2 mg/dL 11/10/2024 9:11 AM EDT [facility] Phosphorus 4.2 2.7 - 4.8 mg/dL 11/10/2024 9:11 AM EDT [facility] Glucose 85 74 - 99 mg/dL 11/10/2024 9:11 AM [facility] Comment: The [place] [employer] (ADA) provides guidance for [...] Standards of Medical Care in Diabetes 2016, [place] [employer]. Diabetes Care. 2016.39(Suppl 1). BUN 18 9 - 24 mg/dL 11/10/2024 9:11 AM [facility] Creatinine, Ser 1.46(H) 0.73 - 1.22 mg/dL 11/10/2024 9:11 AM [facility] Sodium 134(L) 136 - 144 mmol/L 11/10/2024 9:11 AM [facility] Potassium 5.0 3.7 - 5.1 mmol/L 11/10/2024 9:11 AM [facility] Chloride 99 98 - 107 mmol/L 11/10/2024 9:11 AM [facility] CO2 25 22 - 30 mmol/L 11/10/2024 9:11 AM [facility] Anion Gap 10 8 - 15 mmol/L 11/10/2024 9:11 AM [facility] Estimated glomerular filtration rate 51(L) >=60 mL/min/1. 73m 11/10/2024 9:11 AM [facility] Comment: Estimated Glomerular Filtration Rate (eGFR) [...] 11/10/2024 8:22 AM EDT Chelsea Trinidad MD LAB BLOOD ORDERABLES Final Result [facility] [address] [place] [address] [facility] [address] [place] [address] * (ABNORMAL) Urinalysis w/reflex to Microscopic (11/08/2024 6:23 PM EDT) Color Yellow yellow 11/08/2024 10:10 PM [facility] Clarity Clear Clear 11/08/2024 10:10 PM [facility] Glucose, Ur Negative Trace, Negative 11/08/2024 10:10 PM [facility] Bilirubin Urine Negative Negative 11/08/2024 10:10 PM [facility] Ketones, urine Negative Negative, Trace 11/08/2024 10:10 PM [facility] Specific Johnson, Urine 1.021 1.005 - 1.030 11/08/2024 10:10 PM [facility] Blood, Urine Negative Negative, Trace 11/08/2024 10:10 PM [facility] pH, Urine 6.5 5.0 - 8.0 11/08/2024 10:10 PM [facility] Protein, Ur Trace Trace, Negative 11/08/2024 10:10 PM [facility] Urobilinogen, UA Normal Normal 11/08/2024 10:10 PM [facility] Nitrite, UA Negative Negative 11/08/2024 10:10 PM [facility] Leukest Negative Negative, 25 Eder/uL 11/08/2024 10:10 PM [facility] WBC, UA 0-5 /HPF 0-5 /HPF 11/08/2024 10:10 PM [facility] RBC, UA 0-3 /HPF 0-3 /HPF 11/08/2024 10:10 PM [facility] Bacteria, Urine Few(A) None Seen /HPF 11/08/2024 10:10 PM [facility] Epithelial Cells, Wet Prep Few /HPF 11/08/2024 10:10 PM [facility] Hyaline Casts, UA >10 /LPF(A) 0 /LPF 11/08/2024 10:10 PM EDT [facility] Urine 11/08/2024 6:23 PM EDT 11/08/2024 9:55 PM EDT us Betty Dias DO LAB URINE ORDERABLES Final Res ult [facility] [address] [place] [address] [facility] [address] [facility] [address] [place] [address] * US renal complete (11/08/2024 1:00 PM EDT) Anatomical Region Laterality Modality Body Ultrasound 11/08/2024 1:00 PM EDT Impressions 11/08/2024 1:54 PM EDT IMPRESSION: Sonographically unremarkable the kidneys. Complex fluid, with septations noted in the anterior lower pelvis. Holistic Health Practitioner: PSCB Transcribe Date/Time: Nov 08 2024 1:49P [...] septations noted in the anterior lower pelvis. Holistic Health Practitioner: SRINI Transcribe Date/Time: Nov 08 2024 1:49P Dictated by : CHARIS WHALEN MD This examination was interpreted and the report reviewed and electronically signed by: CHARIS WHALEN MD on Nov 08 2024 1:52PM EST us Betty Dias DO G US ORDERABLES Final Result * (ABNORMAL) BASIC METABOLIC PANEL (11/08/2024 5:21 AM EDT) [facility] Glucose 92 74 - 99 mg/dL 11/08/2024 8:26 AM EDT [facility] Comment: The [place] Diabetes Association (ADA) provides guidance for [...] Standards of Medical Care in Diabetes 2016, [place] Diabetes Association. Diabetes Care. 2016.39(Suppl 1). BUN 17 9 - 24 mg/dL 11/08/2024 8:[facility] Creatinine, Ser 1.55(H) 0.73 - 1.22 mg/dL 11/08/2024 8:26 AM [facility] Sodium 135(L) 136 - 144 mmol/L 11/08/2024 8:26 [facility] Potassium 4.6 3.7 - 5.1 mmol/L 11/08/2024 8:26 AM [facility] Chloride 97(L) 98 - 107 mmol/L 11/08/2024 8:26 AM [facility] CO2 27 22 - 30 mmol/L 11/08/2024 8:26 AM [facility] Anion Gap 11 8 - 15 mmol/L 11/08/2024 8:26 AM [facility] Calcium 9.0 8.5 - 10.2 mg/dL 11/08/2024 8:26 AM [facility] Estimated glomerular filtration rate 48(L) >=60 mL/min/1. 73m 11/08/2024 8:26 AM [facility] Comment: Estimated Glomerular Filtration Rate (eGFR) [...] 7:52 AM EDT us Betty Dias DO LAB BLOOD ORDERABLES Final Res ult [facility] [address] [place] [address] [facility] [address] [place] [address] * XR ABDOMEN 1 VWS (11/07/2024 2:24 PM EDT) Only the most recent of3 resultswithin the time period is included. Anatomical Region Laterality Modality Body Computed Radiogr aphy 11/07/2024 2:24 PM EDT Impressions 11/07/2024 2:54 PM EDT IMPRESSION: Nonspecific, nonobstructive bowel gas pattern. Holistic Health Practitioner: PSCB Transcribe Date/Time: Nov 07 2024 2:50P [...] IMPRESSION: IMPRESSION: Nonspecific, nonobstructive bowel gas pattern. Holistic Health Practitioner: SRINI Transcribe Date/Time: Nov 07 2024 2:50P Dictated by : AMARILIS MACK MD This examination was interpreted and the report reviewed and electronically signed by: AMARILIS MACK MD on Nov 07 2024 2:52PM EST us Jonathan Cruz DO IMG DIAGNOSTIC IMAGING ORDER CAROLE Final Result * US abdomen limited (11/06/2024 3:45 PM EDT) Only the most recent of4 resultswithin the time period is included. Anatomical Region Laterality Modality Ultrasound 11/06/2024 3:45 PM EDT Narrative 11/06/2024 4:35 PM EDT * * *Final Report* * * DATE OF EXAM: Nov 06 2024 3:45PM [facility] [id number] ZALP ABDOMEN LTD / PROCEDURE REASON: ASCITES SURVEY [...] to moderate volume ascites containing multiple septations Holistic Health Practitioner: SRINI Transcribe Date/Time: Nov 06 2024 4:32P Dictated by : AMARILIS MACK MD This examination was interpreted and the report reviewed and electronically signed by: AMARILIS MACK MD on Nov 06 2024 4:33PM EST Procedure Note System, Provider Not In - 11/06/2024 * * *Final Report* * * DATE OF EXAM: Nov 06 2024 3:45PM U 1064 ZALP ABDOMEN LTD / PROCEDURE REASON: ASCITES SURVEY [...] to moderate volume ascites containing multiple septations Holistic Health Practition[facility] Transcribe Date/Time: Nov 06 2024 4:32P Dictated by : AMARILIS MACK MD This examination was interpreted and the report reviewed and electronically signed by: AMARILIS MACK MD on Nov 06 2024 4:33PM EST us Betty Dias DO IMG US ORDERABLES Final Result * [...] fractures better seen on prior CT scan. Holistic Health Practitioner: SRINI Transcribe Date/Time: Nov 04 2024 4:31P [...] fractures better seen on prior CT scan. Holistic Health Practitioner: SRINI Transcribe Date/Time: Nov 04 2024 4:31P Dictated by : AMARILIS MACK MD This examination was interpreted and the report reviewed and electronically signed by: AMARILIS MACK MD on Nov 04 2024 4:32PM EST Betty Dias DO IMG DIAGNOSTIC IMAGING ORDERAB LES Final Result * (ABNORMAL) CK (11/04/2024 5:10 AM EDT) CK 10(L) 51 - 298 U/L 11/04/2024 12:03 PM EDT [facility] Blood (Blood, Venous) 11/04/2024 5:10 AM EDT 11/04/2024 9:37 AM EDT Jonathan Cruz DO LAB BLOOD ORDERABLES Final R esult [facility] [address] [place] [address] [facility] [id number] [place] [address] * XR CHEST 1 VWS (11/01/2024 2:39 PM EDT) Only the most recent of2 resultswithin the time period is included. Anatomical Region Laterality Modality Body Computed Radiogr aphy 11/01/2024 2:39 PM EDT Impressions 11/04/2024 8:30 AM EDT IMPRESSION: Interval decrease in the right pleural effusion and right basilar opacities. Possible mild pulmonary vascular congestion. Holistic Health Practitioner: SRINI Transcribe Date/Time: Nov 04 2024 8:27A [...] basilar opacities. Possible mild pulmonary vascular congestion. Holistic Health Practitioner: SRINI Transcribe Date/Time: Nov 04 2024 8:27A Dictated by : CHARIS WHALEN MD This examination was interpreted and the report reviewed and electronically signed by: CHARIS WHALEN MD on Nov 04 2024 8:28AM EST Chelsea Trinidad MD IMG DIAGNOSTIC IMAGING ORD ERABLES Final Result * (ABNORMAL) Iron and TIBC (11/01/2024 5:01 AM EDT) Only the most recent of2 resultswithin the time period is included. Iron 28(L) 41 - 186 ug/dL 11/01/2024 9:26 AM EDT [facility] TIBC 74(L) 232 - 386 ug/dL 11/01/2024 9:26 AM EDT [facility] Transferrin saturation 37.8 20.0 - 55.0 % 11/01/2024 9:26 AM EDT [facility] Blood (Blood, Venous) 11/01/2024 5:01 AM EDT 11/01/2024 7:20 AM EDT Chelsea Trinidad MD LAB BLOOD ORDERABLES Final Result [facility] [address] [place] [address] [facility] [address] [place] [address] * Folate (11/01/2024 5:01 AM EDT) Only the most recent of2 resultswithin the time period is included. Folate 9.2 >4.7 ng/mL 11/01/2024 9:40 AM EDT [facility] Blood (Blood, Venous) 11/01/2024 5:01 AM EDT 11/01/2024 7:20 AM EDT Chelsea Trinidad MD LAB BLOOD ORDERABLES Final Result Performing Organization Address [facility] Co de Phone Number [address] [address] [place] [phone] * (ABNORMAL) Ferritin (11/01/2024 5:01 AM EDT) Only the most recent of2 resultswithin the time period is included. Ferritin 5,826.0(H) 30.3 - 565.7 ng/mL 11/01/2024 10:23 AM EDT [facility] Blood (Blood, Venous) 11/01/2024 5:01 AM EDT 11/01/2024 7:20 AM EDT Chelsea Trinidad MD LAB BLOOD ORDERABLES Final Result Performing Organization Address [facility] de Phone Number [address] [address] * Vitamin B12 (11/01/2024 5:01 AM EDT) Only the most recent of2 resultswithin the time period is included. Vitamin B-12 878 232 - 1,245 pg/mL 11/01/2024 9:40 AM EDT [facility] Blood (Blood, Venous) 11/01/2024 5:01 AM EDT 11/01/2024 7:20 AM EDT Chelsea Trinidad MD LAB BLOOD ORDERABLES Final Result Performing Organization Address City/[facility] Co de Phone Number [place] [phone] [place] [phone] * CT ABDOMEN PELVIS WO CONTRAST (10/07/2024 3:00 PM EDT) Anatomical Region Laterality Modality Body Computed Tomogra phy 10/07/2024 3:00 PM EDT [...] the T11 vertebral body. COMMUNICATION: Communicated with JONATHAN CRUZ on 10/07/2024 3:54 PM via verbal communication. Holistic Health Practitioner: SRINI Transcribe Date/Time: Oct 07 2024 3:17P Dictated by : JOSE GUADALUPE MURPHY MD This examination was interpreted and the report reviewed and electronically signed by: JOSE GUADALUPE MURPHY MD on Oct 07 2024 4:01PM EST Narrative 10/07/2024 4:03 PM EDT * * *Final Report* * * DATE OF EXAM: Oct 07 2024 3:00PM [facility] 0531 - CT ABD/PEL WO [...] Localizer images: No additional findings. Procedure Note System, Provider Not In - 10/07/2024 * * *Final Report* * * DATE OF EXAM: Oct 07 2024 3:00PM [facility] 0531 - CT ABD/PEL WO [...] fluid. Localizer images: No additional findings. IMPRESSION: IMPRESSION: 1. Appearances concerning for acute portal [...] the T11 vertebral body. COMMUNICATION: Communicated with JONATHAN CRUZ on 10/07/2024 3:54 PM via verbal communication. Holistic Health Practitioner: SRINI Transcribe Date/Time: Oct 07 2024 3:17P Dictated by : JOSE GUADALUPE MURPHY MD This examination was interpreted and the report reviewed and electronically signed by: JOSE GUADALUPE MURPHY MD on Oct 07 2024 4:01PM EST Jonathan Cruz DO IMG CT ORDERABLES Final Resu lt * Type and screen (10/06/2024 6:00 AM EDT) Only the most recent of2 resultswithin the time period is included. ABO Grouping O 10/06/2024 4:04 PM EDT [facility] Rh Positive 10/06/2024 4:04 PM EDT [facility] Antibody Screen Negative 10/06/2024 4:04 PM EDT [facility] Type And Screen Expiration 10/09/2024 23:59 10/06/2024 4:04 PM EDT [facility] Blood (Blood, Venous) 10/06/2024 6:00 AM EDT 10/06/2024 11:20 AM EDT Luís Bobby MD LAB BLOOD BANK TEST ORDERABLES Final Result Performing Organization Address [facility] Co de Phone Number [facility] [address] [place] [address] MAIN BLOOD BANK [address] [facility] [address] [place] [address] * URIC ACID (10/06/2024 6:00 AM EDT) Uric Acid 6.0 4.0 - 8.1 mg/dL 10/06/2024 12:59 PM EDT [facility] Blood (Blood, Venous) 10/06/2024 6:00 AM EDT 10/06/2024 11:58 AM EDT Luís Bobby MD LAB BLOOD ORDERABLES Final Resu lt Performing Organization Address [facility] Co de Phone Number [facility] [address] [place] [address] [facility] [address] [place] [address] * XR foot right 3+ vws (10/05/2024 2:07 PM EDT) Anatomical Region Laterality Modality Computed Radiogr aphy 10/05/2024 2:07 PM EDT Impressions 10/05/2024 3:20 PM EDT IMPRESSION: No acute osseous abnormality. Soft tissue edema. Holistic Health Practitioner: SRINI Transcribe Date/Time: Oct 05 2024 3:09P Dictated by : ROLANDO BENAVIDES, This examination was interpreted and the report [...] calcifications. Diffuse soft tissue edema. Procedure Note System, Provider Not In - 10/05/2024 * * *Final Report* * [...] Vascular calcifications. Diffuse soft tissue edema. IMPRESSION: IMPRESSION: No acute osseous abnormality. Soft tissue edema. Holistic Health Practitioner: PSCB Transcribe Date/Time: Oct 05 2024 3:09P Dictated by : ROLANDO BENAVIDES, This examination was interpreted and the report reviewed and electronically signed by: WARREN EASLEY MD on Oct 05 2024 3:17PM EST Luís Bobby MD IMG DIAGNOSTIC IMAGING ORDERABL ES Final Result * BETA HYDROXYBUTYRATE (10/04/2024 6:32 AM EDT) Beta-Hydroxybu tyrate 0.20 <0.28 mmol/L 10/04/2024 8:49 AM EDT [facility] Blood (Blood, Venous) 10/04/2024 6:32 AM EDT 10/04/2024 7:38 AM EDT Barry Meyers APRN LAB BLOOD ORDERABLES Final Re sult [facility] [address] [place] [address] [facility] [address] [place] [address] * (ABNORMAL) Lactic Acid/Lactate (10/04/2024 6:32 AM EDT) [facility] Lactate 0.4(L) 0.5 - 2.2 mmol/L 10/04/2024 2:[address] [facility] Blood (Blood, Venous) 10/04/2024 6:32 AM EDT 10/04/2024 1:36 PM EDT Barry Meyers APRN LAB BLOOD ORDERABLES Final Re sult Performing Organization Address [facility]/ZIP Co de Phone Number [facility] [address] [place] [address] [facility] [address] [facility] [address] [place] [address] * POCT glucose (10/03/2024 6:25 AM EDT) Only the most recent of11 resultswithin the time period is included. [facility] Glucose Blood, POC 104 70 - 120 mg/dL [facility] Blood 10/03/2024 6:25 AM EDT 10/03/2024 6:25 AM EDT Levon Harris MD LAB POINT OF CARE TEST ORDERA BLES Final Result Performing Organization Address City/[facility]/ZIP Co de Phone Number [facility] * (ABNORMAL) CBC (10/02/2024 4:12 AM EDT) Pathologist [facility] WBC 8.23 3.70 - 11.00 k/uL 10/02/2024 9:13 AM EDT [facility] RBC 2.53(L) 4.20 - 6.00 m/uL 10/02/2024 9:13 AM EDT [facility] Hemoglobin 7.8(L) 13.0 - 17.0 g/dL 10/02/2024 9:13 AM EDT [facility] Hematocrit 24.3(L) 39.0 - 51.0 % 10/02/2024 9:13 AM EDT [facility] MCV 96.0 80.0 - 100.0 fL 10/02/2024 9:13 AM EDT [facility] MCH 30.8 26.0 - 34.0 pg 10/02/2024 9:13 AM EDT [facility] MCHC 32.1 30.5 - 36.0 g/dL 10/02/2024 9:13 AM EDT [facility] RDW-CV 15.9(H) 11.5 - 15.0 % 10/02/2024 9:13 AM EDT [facility] Platelets 466(H) 150 - 400 k/uL 10/02/2024 9:13 AM EDT [facility] MPV 9.1 9.0 - 12.7 fL 10/02/2024 9:13 AM EDT [facility] Absolute NRBC <0.01 <0.01 k/uL 10/02/2024 9:13 AM EDT [facility] Blood (Blood, Venous) 10/02/2024 4:12 AM EDT 10/02/2024 7:47 AM EDT us Chelsea Trinidad MD LAB BLOOD ORDERABLES Final Result Performing Organization Address City/State/[facility] Co de Phone Number [facility] [address] LABORATORY [address] [place] [address] * ECG 12 lead unit performed (09/29/2024 5:07 PM EDT) 09/29/2024 5:07 PM EDT Narrative [facility] EKG - 09/30/2024 9:46 PM EDT NAME : LOYD BLANDON PID : [id number] : 1955 Gender : Male Race : ORD : [id number] Procedure Date : Sep 29 2024 17:07:01 Edit Date : Sep 30 2024 21:46:57 Diagnosis: NORMAL SINUS RHYTHM WITH SINUS ARRHYTHMIA Confirmed by NEGRO SLATER MD ([id number]) on 09/30/2024 9:46:56 PM Test Reason : Left chest pain - feels more like muscular pain, no radiation, started 3 days a Location : 519 : SMAV Overread By : NEGRO SLATER MD Edited By : NEGRO SLATER MD Referred By : , Acquired by : ALAN ISRAEL RN, Jonathan Cruz DO ECG ORDERABLES Final Result Performing Organization Address City/State/[facility] Co de Phone Number [facility] E[facility] [address]; [address] [facility] [address]; [address] [facility] [place] [address] from Last 3 Months Advance Directives * Full Resuscitation (Latest Code Status on File) Date Activated Date Inactivated Comments 10/30/2024 8:06 PM 11/15/2024 3:57 PM Question Answer Comments I have discussed this order with the patient or his/her surrogate and have received informed consent. Yes * Full Resuscitation Date Activated Date Inactivated Comments 09/29/2024 6:27 PM 10/10/2024 12:31 AM Question Answer Comments I have discussed this order with the patient or his/her surrogate and have received informed consent. Yes Care Teams Pasteurizing Machine Operator Relationship Specialty Start Date End Date Rusty Delgado [address] [facility] [address] [place] [address] PCP - General 09/30/24
--- OUTSIDE RECORDS SUMMARY | 2024-11-19 02:30 | XMS_ITS | Encounter Summary ---
Author Organization [facility] Address [address] [place] [address] Care Team Providers Care Sustainability Manager Name Role Phone Irena Johnson MD Unavailable Vanessa Arora MD Unavailable [phone] Danny WONG MD, Rusty Gomez Primary Care Provider [phone] Carina Ziegler RN Unavailable Unavailable Source Comments In the event this information is protected by the Federal Confidentiality of Alcohol and Drug AbusePatient Records regulations: The Federal rules restrict any use of the information to criminally investigate or prosecute any alcohol or drug abuse patient.[facility] Encounter Details Date Type Department Care Team (Late st Contact Info) Description 11/03/2024 Lab Requisition [facility] [address] [place] [phone] [place] [address] [place], [place] [phone] Social History Tobacco Use Types Packs/Day Years Used Date Smoking Tobacco: Former Cigarettes 1 20 1 04/20/1970 - 02/18/1991 Alcohol Use Standard Drinks/Week Comments Not Currently 0 (1 standard drink = 0.6 oz pur e alcohol) Recovering alcoholic [facility] Utilities Answer Date Recorded In the [...] is lower risk 7 04/25/2024 Data from: https://www.neighborhoodatlas.medicine.[facility].edu/. Last address used for calculation [...] PM EDT Office Visit Transplant Center [address] [address] KAYLIE ARELLANO 11/21/2024 5:40 PM EDT Appointment MRI Q [address] [address] Compression fracture of cervical spine, non-traumatic, with delayed healing, subsequent encounter [M48.52XG] 11/21/2024 6:20 PM EDT Appointment MRI Q [address] [address] Compression fracture of cervical spine, non-traumatic, with delayed healing, subsequent encounter [M48.52XG] 11/21/2024 7:00 PM EDT Appointment MRI Q [address] [address] Compression fracture of cervical spine, non-traumatic, with delayed healing, subsequent encounter [M48.52XG] 02/03/2025 9:00 AM EDT [facility] [address] [place] [address] Devyn Roach MD [address] [place] [address] Vertigo [R42] 02/10/2025 11:00 AM EDT Appointment Gastroenterology [address] [address] Jane Correia MD [address] [place] [address] Schedule in about 3 months to remove biliary stent documented as of this encounter Goals Goal Patient Goal Type Associated Problems Recent Progress Patient-Stated? Author Blood Pressure < 130/80 Blood Pressure 122/80( 025 5:30 PM EDT) No Vanessa Arora MD documented as of this encounter Procedures Procedure Name Priority Date/Time Associated Diagnosis Comments MAGNESIUM BLD Routine 11/03/2024 5:05 AM EDT RENAL FUNCTION PANEL Routine 11/03/2024 5:05 AM EDT documented in this encounter Results * (ABNORMAL) RENAL FUNCTION PANEL (11/03/2024 5:05 AM EDT) Albumin 2.6(L) 3.9 - 4.9 g/dL 11/03/2024 8:45 AM EDT [facility] Calcium, Total 8.3(L) 8.5 - 10.2 mg/dL 11/03/2024 8:45 AM EDT [facility] Phosphorus 4.4 2.7 - 4.8 mg/dL 11/03/2024 8:45 AM EDT [facility] Glucose 103(H) 74 - 99 mg/dL 11/03/2024 8:45 AM EDT [facility] Comment: The [place] Diabetes Association (ADA) provides guidance for cutoff [...] Standards of Medical Care in Diabetes 2016, [place] [employer] Association. Diabetes Care. 2016.39(Suppl 1). BUN 8(L) 9 - 24 mg/dL 11/03/2024 8:45 AM EDT [facility] Creatinine 0.87 0.73 - 1.22 mg/dL 11/03/2024 8:45 AM EDT [facility] Sodium 134(L) 136 - 144 mmol/L 11/03/2024 8:45 AM EDT [facility] Potassium 4.9 3.7 - 5.1 mmol/L 11/03/2024 8:45 AM EDT [facility] Chloride 101 98 - 107 mmol/L 11/03/2024 8:45 AM EDT [facility] CO2 27 22 - 30 mmol/L 11/03/2024 8:45 AM EDT [facility] Anion Gap 6(L) 8 - 15 mmol/L 11/03/2024 8:45 AM EDT [facility] Estimated Glomerular Filtration Rate 92 >=60 mL/min/1. 73m 11/03/2024 8:[facility] Comment:Estimated Glomerular Filtration Rate (eGFR) [...] actual GFR. Blood BLOOD SPECIMEN / Unknown 11/03/2024 5:05 AM EDT 11/03/2024 8:06 AM EDT us Luís Bobby MD LABORATORY Final Result [facility] [address] [place] [address], * MAGNESIUM (11/03/2024 5:05 AM EDT) Magnesium 1.7 1.7 - 2.3 mg/dL 11/03/2024 8:45 AM EDT [facility] Blood BLOOD SPECIMEN / Unknown 11/03/2024 5:05 AM EDT 11/03/2024 8:06 AM EDT us Luís Bobby MD LABORATORY Final Result [facility] [address] [place] [address], documented in this encounter Visit Diagnoses Not on filedocumented in this encounter Care Teams Sustainability Manager Relationship Specialty Start Date End Date Rusty Delgado II, MD [address] [facility] [address] [place] [address] PCP - General Internal Medicine 05/28/24 Irena Johnson MD [address] [facility] [address] [facility] [place] [phone] Referring Gastroenterology 03/12/24 Vanessa Arora MD [address] [place] [address] Primary Staff Physician Cardiology 05/02/24 Carina Ziegler, RN [facility] [address] [place] [address] Registered Nurse Transplant Center 09/17/24 documented as of this encounter
--- OUTSIDE RECORDS SUMMARY | 2024-11-19 02:30 | XMS_ITS | Encounter Summary ---
Author Organization [facility] Address [address] [place] [address] Care Team Providers Care Instrument Maker Apprentice Name Role Phone Rusty Delgado MD Unavailable [phone] Rusty Delgado MD Primary Care Provider [phone] Encounter Details Date Type Department Care Team (Late st Contact Info) Description 10/23/2023 Clinisync Result Encounter [facility] External Department Unsolicited [...] [place] Whitten [address] [place] [address] [place] [id number] Rusty Delgado MD [address] [place] [address] [place], [place] [id number] documented as of this encounter Procedures Procedure Name Priority Date/Time Associated Diagnosis Comments US PARACENTESIS ABD W/IMAGE 10/23/2023 3:03 PM EDT [facility] PROTHROMBIN TIME INR W/O COUM Routine 10/23/2023 2:46 PM EDT ALL CBC WITH AUTO DIFF Routine 10/23/2023 2:46 PM EDT ALL BASIC METABOLIC PANEL Routine 10/23/2023 2:46 PM EDT documented in this encounter Results * US PARACENTESIS ABD W/IMAGE (10/23/2023 3:03 PM EDT) Anatomical Region Laterality Modality Other 10/23/2023 3:03 PM EDT Narrative 10/23/2023 3:06 [place] [address] Ultrasound Report Signed Patient: LOYD BLANDON MR#: [id number] : 1955 Acct:[id number] Age/Sex: 68 / M ADM Date: 10/23/23 Loc: US Attending Dr: Non-Staff Physician MJulio Cesar Ordering Physician: PhysicianBryanna-Staff Eriberto Date of Service: 10/23/23 Procedure(s): US paracentesis abd w/image Accession Number(s): [id number] cc: RUSTY DELGADO ; Physician,Non-Staff MJulio Cesar [place] [id number] Patient Name: LOYD BLANDON MRN: [id number] date: 1955 Sex: M Assigned Patient Location: US Current Patient Location: US Accession/Order Number: [id number] Exam Date: 10/23/2023 13:05 Report Date: 10/23/2023 15:03 At the request of: NON-STAFF PHYSICIAN Procedure: US paracentesis abd w/image EXAMINATION: US paracentesis abd w/image HISTORY: 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 DESCRIPTION: Informed consent was obtained. The patient was prepped and draped in standard sterile fashion. Ultrasound-guided paracentesis was performed in the usual sterile manner using 1% Xylocaine. FINDINGS: SITE: Right lateral abdomen NEEDLE: Paracentesis 8 Fr. catheter over 18 gauge needle MEDICATION: 25 cc 1% buffered Xylocaine for local anesthesia FLUID DESCRIPTION: medium yellow clear fluid FLUID VOLUME: 2.9 mm COMPLICATIONS: None LABORATORY: Therapeutic only OTHER: The first attempt to gain access into the peritoneal cavity was made in the right anterior lower quadrant, this was not successful due to patient pain and repositioning was made with access along the right lateral abdomen. US/US paracentesis abd w/image IMPRESSION: Technically successful therapeutic paracentesis Electronically authenticated by: AUTUMN FARNSWORTH Date: 10/23/2023 15:03 Dictated By: Autumn Farnsworth M.D. Signed By: 10/23/23 1506 DD/ 1503 TD/TT: On Awake Counselor: Procedure Note Radiology, Radiologist, - 10/23/2023 [place] [address] Ultrasound Report Signed Patient: LOYD BLANDON EMR#: [id number] : 1955cct:[id number] Age/Sex: 68 / MADM Date: 10/23/23 Loc: US Attending Dr: Non-Staff Physician Eriberto Ordering Physician: PhysicianNon-Staff Eriberto Date of Service: 10/23/23 Procedure(s): US paracentesis abd w/image Accession Number(s): [id number] cc: RUSTY DELGADO ; Physician,Non-Staff Eriberto [facility] [place] [id number] Patient Name: LOYD BLANDON MRN: [id number] date: 1955 Sex: M Assigned Patient Location: US Current Patient Location: US Accession/Order Number: [id number] Exam Date: 10/23/2023 13:05 Report Date: 10/23/2023 15:03 At the request of: NON-STAFF PHYSICIAN Procedure: US paracentesis abd w/image EXAMINATION: US paracentesis abd w/image HISTORY: 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 DESCRIPTION: Informed consent was obtained. The patient was prepped anddraped in standard sterile fashion. Ultrasound-guided paracentesis was performedin the usual sterile manner using 1% Xylocaine. FINDINGS: SITE: Right lateral abdomen NEEDLE: Paracentesis 8 Fr. catheter over 18 gauge needle MEDICATION: 25 cc 1% buffered Xylocaine for local anesthesia FLUID DESCRIPTION: medium yellow clear fluid FLUID VOLUME: 2.9 mm COMPLICATIONS: None LABORATORY: Therapeutic only OTHER: The first attempt to gain access into the peritoneal cavity wasmade in the right anterior lower quadrant, this was not successful due to patientpain and repositioning was made with access along the right lateral abdomen. US/US paracentesis abd w/image IMPRESSION: Technically successful therapeutic paracentesis Electronically authenticated by: AUTUMN FARNSWORTH Date: 10/23/2023 15:03 Dictated By: Autumn Farnsworth M.D. Signed By:10/23/23 1506 DD/ 1503 TD/TT: On Awake Counselor: us Generic External Data Provider [facility] Final Result * (ABNORMAL) ALL CBC WITH AUTO DIFF (10/23/2023 2:46 PM EDT) TBH WBC 5.1 4.0 - 11.0 10 3/uL TBH TBH RBC 3.76(L) 4.70 - 6.10 10 6/uL TBH TBH HGB 12.8(L) 14.0 - 18.0 g/dL TBH TBH HCT 37.5(L) 42.0 - 54.0 % TBH TBH MCV 99.7(H) 80.0 - 94.0 fL TBH TBH MCH 34.0 25.9 - 34.0 pg TBH TBH MCHC 34.1 29.9 - 35.2 g/dL TBH TBH RDW 14.6 11.0 - 15.0 % TBH TBH PLT 173 150 - 450 10 3/uL TBH TBH MPV 9.8 9.5 - 13.5 fL TBH NEUTROPHILS PERCENT AUTO 66.8 43.0 - 75.0 % TBH LYMPHOCYTES PERCENT AUTO 15.2(L) 20.5 - 60.0 % TBH MONOCYTES PERCENT AUTO 14.0(H) 1.7 - 12.0 % TBH TBH EO % 2.6 0.9 - 7.0 % TBH BASOPHILS PERCENT AUTO 0.8 0.2 - 2.0 % TBH IMMATURE GRANULOCYTES PCT AUTO 0.6(H) 0.0 - 0.5 % TBH NEUTROPHILS ABSOLUTE AUTO 3.4 1.4 - 6.5 10 3/uL TBH LYMPHOCYTES ABSOLUTE AUTO 0.8(L) 1.2 - 3.8 10 3/uL TBH MONOCYTES ABSOLUTE AUTO 0.7 0.3 - 0.8 10 3/uL TBH TBH EO # 0.1 0.0 - 0.7 10 3/uL TBH BASOPHILS ABSOLUTE AUTO 0.0 0.0 - 0.1 10 3/uL TBH IMMATURE GRANULOCYTES ABS AUTO 0.03 0.00 - 0.03 10 3/uL [facility] 10/23/2023 2:46 PM EDT 10/23/2023 2:48 PM EDT Narrative [facility] - 10/23/2023 3:20 PM EDT Generic External Data Provider [facility] F inal Result Performing Organization Address [facility] Co de Phone Number [facility] * (ABNORMAL) [facility] PROTHROMBIN TIME INR W/O COUM (10/23/2023 2:46 PM EDT) PROTHROMBIN TIME 12.2(H) 9.0 - 11.6 sec TBH TBH INR 1.17 TBH Comment: DESIRED INR: 2.0-3.0 CONDITIONS NOT LISTED BELOW 2.5-3.5 FOR PROSTHETIC HEART VALVE REPLACEMENT 2.5-3.5 RECURRENT THROMBOSIS 10/23/2023 2:46 PM EDT 10/23/2023 2:48 PM EDT Narrative [facility] - 10/23/2023 3:18 PM EDT Generic External Data Provider [facility] F inal Result Performing Organization Address City/State/[facility] Co de Phone Number [facility] * (ABNORMAL) ALL BASIC METABOLIC PANEL (10/23/2023 2:46 PM EDT) SODIUM 135(L) 136 - 145 mmol/L TBH POTASSIUM 4.4 3.5 - 5.1 mmol/L TBH CHLORIDE 100 98 - 107 mmol/L TBH CARBON DIOXIDE 24.7 21.0 - 32.0 mmol/L TBH ANION GAP 14.7 TBH GLUCOSE 130(H) 74 - 106 mg/dL TBH BLOOD UREA NITROGEN 19.0(H) 7.0 - 18.0 mg/dL TBH CREATININE 1.40(H) 0.70 - 1.30 mg/dL TBH TBH EGFR-AF ETHIOPIAN >60 >=60 TBH TBH EGFR-NON AF ETHIOPIAN 50(L) >=60 TBH BUN CREATININE RATIO 13.6 TBH CALCIUM 9.2 8.5 - 10.1 mg/dL TBH 10/23/2023 2:46 PM EDT 10/23/2023 2:48 PM EDT Narrative [facility] - 10/23/2023 3:09 PM EDT us Generic External Data Provider [facility] F inal Result [facility] documented in this encounter Visit Diagnoses Not on filedocumented in this encounter Care Teams Instrument Maker Apprentice Relationship Specialty Start Date End Date Rusty Delgado MD [address] [facility] [address] [place] [address] PCP - [employer] 04/17/22 Rusty Delgado MD [address] [place] [address] [place] [address] PCP - General Internal Medicine 11/23/22 documented as of this encounter
--- OUTSIDE RECORDS SUMMARY | 2024-11-19 02:30 | XMS_ITS | Encounter Summary ---
Author Organization [facility] Address [facility] [address] Care Team Providers Care Shaker Flatwork Name Role Phone Tanisha Vazquez MD Primary Care Provider Irena Johnson MD Unavailable Vanessa Arora MD Unavailable [phone] [place] WONG MD, Rusty Gomez Primary Care Provider [phone] Carina Ziegler RN Unavailable Unavailable Source Comments In the event this information is protected by the Federal Confidentiality of Alcohol and Drug AbusePatient Records regulations: The Federal rules restrict any use of the information to criminally investigate or prosecute any alcohol or drug abuse patient.[facility] Encounter Details Date Type Department Care Team (Late st Contact Info) Description 01/15/2014 Get Medical Advice Family Medicine [address] [place] [address] [place] [address] [place] [address] RE: Test Result Question Social History Tobacco Use Types Packs/Day Years Used Date Smoking Tobacco: Former Cigarettes 1 20 Alcohol Use Standard Drinks/Week Comments Yes 10 (1 standard drink = 0.6 oz pu re alcohol) Sex and Gender Information Value Date Recorded Sex Assigned at Male 04/23/2024 12:19 PM EST Legal Sex Male 10:09 AM EST Gender Identity Male 04/23/2024 12:19 PM EST Sexual Orientation Straight 04/23/2024 12 :19 PM EST documented as of this encounter Functional Status * Are you deaf or do you have serious difficulty hearing? Answer Date of Assessment Author No 12/30/2013 12:01 PM EDT Viola Garcia MA * Are you blind or do you have serious difficulty seeing, even when wearing glasses? Answer Date of Assessment Author No 12/30/2013 12:01 PM EDT Viola Garcia MA * Do you have serious difficulty walking or climbing stairs? Answer Date of Assessment Author No 12/30/2013 12:01 PM EDT Viola Garcia MA * Do you have difficulty dressing or bathing? Answer Date of Assessment Author No 12/30/2013 12:01 PM EDT Viola Garcia MA * Because of a physical, mental, or emotional condition, do you have difficulty doing errands alone such as visiting a doctor's office or shopping? Answer Date of Assessment Author No 12/30/2013 12:01 PM EDT Viola Garcia MA documented as of this encounter Mental Status * Because of a physical, mental, or emotional condition, do you have serious difficulty concentrating, remembering, or making decisions? Answer Entry Date Author No 12/30/2013 12:01 PM EDT Viola Garcia MA documented in this encounter Plan of Treatment Upcoming Encounters Date Type Department Care Team (Late st Contact Info) Description 11/21/2024 4:00 PM EDT Office Visit Transplant Center [address] [address] KAYLIE ARELLANO 11/21/2024 5:40 PM EDT Appointment MRI Q [address] [address] Compression fracture of cervical spine, non-traumatic, with delayed healing, subsequent encounter [M48.52XG] 11/21/2024 6:20 PM EDT Appointment MRI Q [address] [address] Compression fracture of cervical spine, non-traumatic, with delayed healing, subsequent encounter [M48.52XG] 11/21/2024 7:00 PM EDT Appointment MRI Q [address] [address] Compression fracture of cervical spine, non-traumatic, with delayed healing, subsequent encounter [M48.52XG] 02/03/2025 9:00 AM EDT [facility] Neurology [address] [place] [address] Devyn Roach MD [address] [place] [address] Vertigo [R42] 02/10/2025 11:00 AM EDT Appointment Gastroenterology [address] [address] Jane Correai MD [address] [place] [address] Schedule in about 3 months to remove [...] documented as of this encounter Care Teams Shaker Flatwork Relationship Specialty Start [place] [address] [place] [address] PCP - General Family Medicine 11/26/12 04/04/17 Rusty Delgado II, MD [address] [place] [address] [place] [address] PCP - General Internal Medicine 05/28/24 Irena Johnson MD [address] [facility] [address] [facility] [place] [phone] Referring Gastroenterology 03/12/24 Vanessa Arora MD [address] [place] [address] Primary Staff Physician Cardiology 05/02/24 Carina Ziegler, RN [facility] [address] [place] [address] Registered Nurse Transplant Center 09/17/24 documented as of this encounter
--- OUTSIDE RECORDS SUMMARY | 2024-11-19 02:30 | XMS_ITS | Encounter Summary ---
Author Organization [facility] Address [address] [facility] [place] [address] Care Team Providers Care Property Worker Name Role Phone Rusty Delgado MD Unavailable [phone] Rusty Delgado MD Primary Care Provider Encounter Details Date Type Department Care Team (Late st Contact Info) Description 06/02/2023 External Result Encounter [facility] External Department Unsolicited Brayan Villegas, DO [address] [facility] [address] [place] [address] Social History Tobacco Use Types Packs/Day Years [...] Tone Whitten [address] [place] [phone] Rusty Delgado MD [address] [address] [place] [address] documented as of this encounter Procedures Procedure Name Priority Date/Time Associated Diagnosis Comments ECG 12-LEAD 06/02/2023 9:48 AM EST documented in this encounter Results * ECG 12 lead (06/02/2023 9:48 AM EST) 06/02/2023 9:48 AM EST Narrative [facility] - 06/02/2023 6:21 PM EST [place] [id number] Electrocardiograph Report Signed Patient: Charles Stewart MR#: [id number] 68 : 1955 Acct:[id number] Age/Sex: 67 / M ADM Date: 06/02/23 Loc: PS Room: Type: REG CLI Attending Dr: Brayan Villegas DO Ordering Provider: Brayan Villegas DO Date of Service: 06/02/23 ECG/ECG [...] previous ECGs available Confirmed by Gurpreet Dyson ([id number]) on 06/02/2023 6:21:10 PM Referred By: VENKAT VILLEGAS Electronically Signed By:Gurpreet Dyson Transcribed By: MUS Signed By Gurpreet Dyson MD 06/02/23 1821 Procedure Note Keagan Dyson MD - 06/03/[address] [address] Electrocardiograph Report Signed Patient: Charles StewartMR#: [id number] 66 : 1955cct:[id number] Age/Sex: 67 / MADM Date: 06/02/23 Loc: PS Room:Type: REG CLI Attending Dr: Brayan Villegas DO Ordering Provider: Brayan Villegas DO Date of Service: 06/02/23 ECG/ECG [...] previous ECGs available Confirmed by Gurpreet Dyson ([id number]) on 06/02/2023 6:21:10 PM Referred By: VENKAT VILLEGAS Electronically Signed By:Bobby Transcribed By: MUS Signed By Gurpreet Dyson MD 06/02/23 1821 us Brayan Villegas DO ECG ORDERABLES Final Res ult [address] [address], documented in this encounter Visit Diagnoses Not on filedocumented in this encounter Care Teams Property Worker Relationship Specialty Start Date End Date Rusty Delgado MD [address] [facility] [address] [place] [address] PCP - [employer] 04/17/22 Rusty Delgado MD [address] [facility] [address] [place] [address] PCP - General Internal Medicine 11/23/22 documented as of this encounter
--- OUTSIDE RECORDS SUMMARY | 2024-11-19 02:30 | XMS_ITS | Encounter Summary ---
Author Organization [facility] Address [address] [place] [address] Care Team Providers Care Door To Door Salesperson Name Role Phone Rusty Delgado MD Unavailable [phone] Rusty Delgado MD Primary Care Provider [phone] Encounter Details Date Type Department Care Team (Late st Contact Info) Description 06/22/2023 Abstract [facility] [place] Whitten [address] [facility] 110 [place] [phone] Rusty Delgado MD [address] [facility] 110 [place], [place] [phone] Social History Tobacco Use Types Packs/Day Years [...] Visit [facility] [place] Whitten [address] [facility] [address] [place] [phone] Rusty Delgado MD 112 [facility] [address] [place], [place] [phone] documented as of this encounter Visit Diagnoses Not on filedocumented in this encounter Care Teams Door To Door Salesperson Relationship Specialty Start Date End Date Rusty Delgado MD [address] [facility] 110 [place] [address] PCP - [employer] 04/17/22 Rusty Delgado MD [address] [facility] 110 [place] [address] PCP - General Internal Medicine 11/23/22 documented as of this encounter
--- OUTSIDE RECORDS SUMMARY | 2024-11-19 02:30 | XMS_ITS | Encounter Summary ---
Author Organization [facility] Address [address] [place] [address] Care Team Providers Care Microwave Oven Assembler Name Role Phone Irena Johnson MD Unavailable Vanessa Arora MD Unavailable [phone] Danny WONG MD, Rusty Gomez Primary Care Provider [phone] Carina Ziegler RN Unavailable Unavailable Source Comments In the event this information is protected by the Federal Confidentiality of Alcohol and Drug AbusePatient Records regulations: The Federal rules restrict any use of the information to criminally investigate or prosecute any alcohol or drug abuse patient.[facility] Encounter Details Date Type Department Care Team (Late st Contact Info) Description 11/05/2024 Orders Only Transplant Center [address] [id number] Carina Ziegler, RN [address] [address] Disorder of liver (Primary Dx); Vertigo; Biliary stricture of transplanted liver (HCC); Biliary stone of transplanted liver (HCC); Liver replaced by transplant (HCC) Social History Tobacco Use Types Packs/Day Years Used Date Smoking Tobacco: Former Cigarettes 1 20 1 04/20/1970 - 02/18/1991 Alcohol Use Standard Drinks/Week Comments Not Currently 0 (1 standard drink = 0.6 oz pur e alcohol) Recovering alcoholic [facility] Utilities Answer Date Recorded In the [...] risk 7 04/25/2024 Data from: https://www.neighborhoodatlas.medicine.[facility].edu/. Last address used for calculation Eugene [...] PM EDT Office Visit Transplant Center [address] [address] KAYLIE ARELLANO 11/21/2024 5:40 PM EDT Appointment MRI Q [address] [address] Compression fracture of cervical spine, non-traumatic, with delayed healing, subsequent encounter [M48.52XG] 11/21/2024 6:20 PM EDT Appointment MRI Q [address] [address] Compression fracture of cervical spine, non-traumatic, with delayed healing, subsequent encounter [M48.52XG] 11/21/2024 7:00 PM EDT Appointment MRI Q [address] [address] Compression fracture of cervical spine, non-traumatic, with delayed healing, subsequent encounter [M48.52XG] 02/03/2025 9:00 AM EDT [facility] Neurology [address] [place] [address] Devyn Roach MD [address] [place] [address] Vertigo [R42] 02/10/2025 11:00 AM EDT Appointment Gastroenterology [address] [address] Jane Correia MD [address] [place] [address] Schedule in about 3 months to remove biliary stent Scheduled Orders Name Type Priority Associated Diagnoses Orde r Schedule COMPLETE BLOOD COUNT AND DIFFERENTIAL Lab Routine Disorder of liver Liver replaced by transplant (HCC) 2x per week for 80 Occurrences starting 11/18/2024 until 11/18/2025, 1 completed COMPREHENSIVE METABOLIC PANEL Lab Routine Disorder of liver Liver replaced by transplant (HCC) 2x per week for 80 Occurrences starting 11/18/2024 until 11/18/2025, 1 completed GGT Lab Routine Disorder of liver Liver replaced by transplant (HCC) 2x per week for 80 Occurrences starting 11/18/2024 until 11/18/2025 LIPID PANEL, FASTING Lab Routine Disorder of liver Liver replaced by transplant (HCC) Every 6 months for 2 Occurrences starting 11/18/2024 until 11/18/2025 MAGNESIUM Lab Routine Disorder of liver Liver replaced by transplant (HCC) 2x per week for 80 Occurrences starting 11/18/2024 until 11/18/2025, 1 completed PHOSPHORUS INORGANIC Lab Routine Disorder of liver Liver replaced by transplant (HCC) 2x per week for 80 Occurrences starting 11/18/2024 until 11/18/2025, 1 completed CYTOMEGALOVIRUS (CMV) DNA, QUANTITATIVE PCR, PLASMA Lab Routine Disorder of liver Liver replaced by transplant (HCC) Once per week for 40 Occurrences starting 11/18/2024 until 11/18/2025 TACROLIMUS/FK-506 BL Lab Routine Disorder of liver Liver replaced by transplant (HCC) 2x per week for 80 Occurrences starting 11/18/2024 until 11/18/2025 PHOSPHATIDYLETHANOL (PETH) Lab Routine Disorder of liver Liver replaced by transplant (HCC) Once per month for 7 Occurrences starting 11/18/2024 until 11/18/2025 documented as of this encounter Goals Goal Patient Goal Type Associated Problems Recent Progress Patient-Stated? Author Blood Pressure < 130/80 Blood Pressure 122/80( 025 5:30 PM EDT) No Vanessa Arora MD documented as of this encounter Procedures Procedure Name Priority Date/Time Associated Diagnosis Comments MAGNESIUM BLD Routine 11/18/2024 8:44 AM EDT Disorder of liver Liver replaced by transplant (HCC) PHOSPHORUS INORGANIC Routine 11/18/2024 8:44 AM EDT Disorder of liver Liver replaced by transplant (HCC) COMPREHENSIVE METABOLIC PANEL Routine 11/18/2024 8:44 AM EDT Disorder of liver Liver replaced by transplant (HCC) CBC + DIFF Routine 11/18/2024 8:44 AM EDT Disorder of liver Liver replaced by transplant (HCC) documented in this encounter Results * PHOSPHORUS INORGANIC (11/18/2024 8:44 AM EDT) Phosphorus 4.1 2.1 - 4.3 mg/dL [facility] Comment: Test Performed at: [facility] [address] [place] [phone] [address] AMELIA AGUILAR Blood BLOOD SPECIMEN / Unknown 11/18/2024 8:44 AM EDT 11/18/2024 3:32 PM EDT us Shelli Boo SOCIOLOGY INSTRUCTOR.CAPACITY MANAGER LABORATORY Final R esult [facility] [address] [place] [address] [facility] [address] [place] [phone] * MAGNESIUM (11/18/2024 8:44 AM EDT) Magnesium 1.9 1.5 - 2.5 mg/dL [facility] Comment: Test Performed at: [facility] [address] [place] [phone] [address] AMELIA AGUILAR Blood BLOOD SPECIMEN / Unknown 11/18/2024 8:44 AM EDT 11/18/2024 3:32 PM EDT us Shelli Boo SOCIOLOGY INSTRUCTOR.CAPACITY MANAGER LABORATORY Final R esult [facility] [address] [place] [address] [facility] [address] [place] [address] * (ABNORMAL) COMPREHENSIVE METABOLIC PANEL (11/18/2024 8:44 AM EDT) Glucose 128(H) 65 - 99 mg/dL [facility] Comment: Fasting reference interval For someone without known diabetes, a glucose value >125 mg/dL indicates that they may have diabetes and this should be confirmed with a follow-up test. BUN 11 7 - 25 mg/dL [facility] Creatinine 1.21 0.70 - 1.28 mg/dL [facility] EGFR 64 > OR = 60 mL/min/1. 73m2 [facility] BUN/Creat Ratio SEE NOTE: 6 - 22 (calc) [facility] Comment: Not Reported: BUN and Creatinine are within reference range. Sodium 131(L) 135 - 146 mmol/L [facility] Potassium 5.6(H) 3.5 - 5.3 mmol/L [facility] Chloride 98 98 - 110 mmol/L [facility] CO2 25 20 - 32 mmol/L [facility] Calcium 8.5(L) 8.6 - 10.3 mg/dL [facility] Protein, Total 5.8(L) 6.1 - 8.1 g/dL [facility] Albumin 3.0(L) 3.6 - 5.1 g/dL [facility] Globulin 2.8 1.9 - 3.7 g/dL (calc) [facility] Alb/Glob Ratio 1.1 1.0 - 2.5 (calc) [facility] Bilirubin, Total 0.4 0.2 - 1.2 mg/dL [facility] Alkaline Phosphatase 134 35 - 144 U/L [facility] AST 25 10 - 35 U/L [facility] ALT 17 9 - 46 U/L [facility] Comment: Test Performed at: [facility] [phone] [address] AMELIA AGUILAR Blood BLOOD SPECIMEN / Unknown 11/18/2024 8:44 AM EDT 11/18/2024 3:32 PM EDT us Shelli Boo SOCIOLOGY INSTRUCTOR.CAPACITY MANAGER LABORATORY Final R esult [facility] [address] [place] [address] [address] * (ABNORMAL) COMPLETE BLOOD COUNT AND DIFFERENTIAL (11/18/2024 8:44 AM EDT) WBC 2.3(L) 3.8 - 10.8 Thousand/ uL [facility] RBC 3.15(L) 4.20 - 5.80 Million/u L [facility] Hemoglobin 9.4(L) 13.2 - 17.1 g/dL [facility] Hematocrit 29.7(L) 38.5 - 50.0 % [facility] MCV 94.3 80.0 - 100.0 fL [facility] MCH 29.8 27.0 - 33.0 pg [facility] MCHC 31.6(L) 32.0 - 36.0 g/dL [facility] Comment: For adults, a slight decrease in the calculated MCHC value (in the range of 30 to 32 g/dL) is most likely not clinically significant; however, it should be interpreted with caution in correlation with other red cell parameters and the patient's clinical condition. RDW-CV 18.7(H) 11.0 - 15.0 % [facility] Platelet Count 480(H) 140 - 400 Thousand/ uL [facility] MPV 8.1 7.5 - 12.5 fL [facility] Abs Neut (ANC) 1,833 1,500 - 7,800 cells/uL [facility] Abs Lymph 244(L) 850 - 3,900 cells/uL [facility] Abs Weber 81(L) 200 - 950 cells/uL [facility] Abs Eosin 9(L) 15 - 500 cells/uL [facility] Abs Baso 133 0 - 200 cells/uL [facility] Neut% 79.7 % [facility] Lymph% 10.6 % [facility] Weber% 3.5 % [facility] Eosin% 0.4 % [facility] Baso% 5.8 % [facility] Diff Comment SEE NOTE [facility] Comment: Review of peripheral smear confirms automated results. REPORT COMMENT: FASTING:YES MULTIPLE TESTING PRIORITIES; ROUTINE TESTING TO FOLLOW. Test Performed at: [facility] [place] [address] [address] AMELIA AGUILAR Blood BLOOD SPECIMEN / Unknown 11/18/2024 8:44 AM EDT 11/18/2024 3:32 PM EDT us Shelli Boo SOCIOLOGY INSTRUCTOR.CAPACITY MANAGER LABORATORY Final R esult [facility] [address] [place] [address] [facility] [address] [place] [phone] documented in this encounter Visit Diagnoses Diagnosis Disorder of liver- Primary Unspecified disorder of liver Vertigo Dizziness and giddiness Biliary stricture of transplanted liver (HCC) Complications of transplanted liver Biliary stone of transplanted liver (HCC) Complications of transplanted liver Liver replaced by transplant (HCC) Liver replaced by transplant documented in this encounter Care Teams Microwave Oven Assembler Relationship Specialty Start Date End Date Rusty Delgado II, MD [address] [facility] [address] [place] [address] PCP - General Internal Medicine 05/28/24 Irena Johnson MD [address] [facility] [place] [address] Referring Gastroenterology 03/12/24 Vanessa Arora MD [address] [place] [address] Primary Staff Physician Cardiology 05/02/24 Carina Ziegler, RN [facility] [address] [place] [address] Registered Nurse Transplant Center 09/17/24 documented as of this encounter
--- OUTSIDE RECORDS SUMMARY | 2024-11-19 02:30 | XMS_ITS | Encounter Summary ---
Author Organization [facility] Address [address] [place] [address] Care Team Providers Care Rental Sales Associate Name Role Phone Lamont Delgadoel Patricia Primary Care Provider [phone] Encounter Details Date Type Department Care Team (Late st Contact Info) Description 11/05/2024 Plan of Care Documentation [address] [id number] Social History Tobacco Use Types Packs/Day Years Used Date Smoking Tobacco: Former Cigarettes Smokeless Tobacco: Never Alcohol Use Standard Drinks/Week Comments Not Currently 0 (1 standard drink = 0.6 oz pur e alcohol) 2-3 drinks every night [facility] Utilities Answer Date Recorded In the past 12 months has [employer] electric, gas, oil, or water company [...] often do you attend chur ch or christian services? Never 10/31/2024 Do you belong to any clubs o r organizations such as rastafari groups, unions, fraternal or athletic groups, or [...] and heating? Not hard at all 10/31/2024 [facility] - Occupational Stress [...] any time in the past 12 m [facility], were you homeless or living in a longterm (including now)? No 10/31/2024 Domestic Abuse Assessment [...] Team Conference - Jonathan Cruz DO - 11/05/2024 1:42 PM EDT Physician Attestation A team conference was held was led byBERE SAMAN S, DO, the rehabilitation physician on 11/05/24 and included members of the multidisciplinary team identified in the attendance section of this note. Issues related to Charles Stewart status include but not limited to Patient Active Problem List Diagnosis Critical illness myopathy Charles Mclaughlins progress toward rehabilitation goals, impediments [...] of their rehabilitation goals. JONATHAN CRUZ DO * Pharmacy Team Conference - REYNA Salazar - 11/05/2024 1:42 PM EDT Images from the original note were not included. Pharmacy: Latest Pharmacy IDT Documentation Value Time User Medications Reviewed: Considerations for Discharge 11/04/2024 10:12 AM Jose Warren PharmD Documented cosiderations for discharge: Pain; Antimicrobials 11/04/2024 10:12 AM Jose Warren PharmD Current antimicrobials: Medications Related to Antimicrobial [...] 900 mg Oral 2 times per day 11/04/2024 10:12 AM Jose Warren PharmD Current pain medications: Medications Related to Management of Pain acetaminophen (TYLENOL) 160 MG/5ML solution 500 mg, 500 mg, Oral, Q6H PRN, Jonathan Cruz DO aspirin EC tablet 81 mg, 81 mg, Oral, Once a day, Jonathan Cruz DO, 81 mg at 11/03/24 0844 methocarbamol (ROBAXIN) tablet 750 mg, 750 mg, Oral, TID PRN, Jonathan Cruz DO, 750 mg at 11/03/24 1635 oxyCODONE (ROXICODONE) immediate release tablet 10 mg, 10 mg, Oral, Q6H PRN, Luís Bobby MD, 10 mg at 11/03/24 1631 11/04/2024 10:12 AM Jose Warren PharmD Anti-infective Durations: Per [facility] CoPAT: daptomycin 700mg IV q24h for biliary stent infection--stopdate 11/12/24. 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 Continue Bactrim DS 1 tab PO Mon/Mon/Mon for s/p transplant prophylaxis--no stop date at this time. Medication Schedule Impact- Side Effects/ Behavior: apap,furosemide,methocarbamol,mirtazapine,oxycodone,tacrolimus, age Fall risk: high risk Inpatient Morphine Milligram Equivalents Per Day 10/30 - 11/06 Values displayed are in units of MME/Day Order Start / End Date 10/30 10/31 11/01 11/02 11/03 Yesterday Today Tomorrow Daily Totals 7.5 of Unknown (at least 7.5) 37.5 of 45 15 of 60 15 of 60 15 of 75 15 of 60 0 of 60 0of 60 oxyCODONE (ROXICODONE) immediate release tablet Missing start date - 10/30 0 of Unknown -- -- -- -- -- -- -- oxyCODONE (ROXICODONE) immediate release tablet 5 mg 10/30 - 10/31 7.5 of 7.5 7.5 of 15 -- -- -- -- -- -- oxyCODONE (ROXICODONE) 5 MG immediate release tablet - ADS Override Pull 10/30 - 10/30 0 of Unknown -- -- -- -- -- -- -- oxyCODONE (ROXICODONE) immediate release tablet 10 mg 10/31 - 11/13 -- 30 of 30 15 of 60 15 of 60 15 of 75 15 of 60 0 of 60 0 of 60 Calculation Errors Order Type Date Details oxyCODONE (ROXICODONE) immediate release tablet Ordered Dose -- Maximum number of scheduled times exceeded oxyCODONE (ROXICODONE) 5 MG immediate release tablet - ADS Override Pull Ordered Dose -- Frequency type could not be determined * Team Conference Discussion - REYNA Salazar - 11/05/2024 1:42 PM EDT Team Discussion Anticipated Discharge 11/13/2024 DME Recommendations: TBD Services Recommended at Discharge: Home Care, PT, OT, and RN Quilt Maker Training: Completed F/U Appointments for Post Discharge: pcp, liver team Suicide Risk Assessment: No Concerns identified at this time Pain Management: Pain reported as adequately managed at this time. * Case Management Team Conference - REYNA Salazar - 11/05/2024 1:42 PM EDT Customer Care ProfessionalBusiness Continuity Management Director: Discharge Plan: Discharge Destination Details : Own Home Back-up Discharge Destination: SNF/SNU Potential Barriers to Return to Prior Living (Use comments to be specific): Caregiver limitations;Capacity for self care;Mobility challenge Clinical Barriers : Clinical needs exceed caregiver capacity;Instability * Respiratory Therapy Team Conference - REYNA Salazar - 11/05/2024 1:42 PM EDT Respiratory Team Conference: Patient is not currently receiving RT services * Nutrition Team Conference - REYNA Salazar - 11/05/2024 1:42 PM EDT Nutrition Team Conference: Diet Orders (From [...] Weight: 159 lb (72.1 kg) Current Weight: 165 lb 8 oz (75.1 kg) Body mass index is 24.44 kg/m??. Calorie Count: Plan of Care - Nutrition Care Plans 1 Author: MARYELLEN Gorman Service: -- Author Type: Registered Dietitian Filed: 11/01/2024 11:09 AM Date of Service: 11/01/2024 11:09 AM Status: Signed Fur Joiner: MARYELLEN Gorman (Registered Dietitian) Problem: Malnutrition Description: [...] weights, I/O, labwork/lytes, bowel function/stooling pattern * Nursing Team Conference - REYNA Salazar - 11/05/2024 1:42 PM EDT Nursing Team Conference Bladder Continent: Continent with accidents Bladder Devices: Urinal;Adult brief Bladder Interventions: None Bladder: Describe level of assistance required and any barriers encountered in management: cont/incof b/b Bowel Continent: Continent with accidents Bowel Devices: Adult brief Bowel Interventions: Medications Bowel: Describe level of assistance required and any barriers encountered in management: refusing senna Pain: Patient denies pain Pain - Functional Impact: Transfers;Turning;Specified Movement/Other (Comment) Aggravating Factors Impacting Pain: Positioning;Weakness Alleviating Factors Impacting Pain: Repositioning;Rest Pain Education Provided: Patient Non-Pharmacologic Pain Interventions: Position/Reposition;Relaxation;Rest Emotional/Spiritual Pain Interventions: Emotional Support Pain Consults Initiated or Completed: Pharmacy Opiate Use Anticipated After Discharge: No Pain: Describe patient response (degree, duration, reduction) to interventions during past 7 days: denies Nutrition Intake: Oral Nutrition Level of Assistance: Independent Nutrition Interventions: None Nutrition: General appetite of patient over past 7 days, how diet tolerated, how responding to interventions, are boluses or supplements: tolerating P(O diet Respiratory O2 Delivery System: None Respiratory Interventions: None Respiratory: Describe how patient responded to interventions during past 7 days : wnl/ RA Skin Intact: Incision Skin Interventions: Weight shift/Turned respositioned every 2 hours;Specialty bed-mattress Skin: Describe state of skin alterations and progress, or impediments to healing: right dickson drain, healed inc Wound Rx: None Wound: Current Status: na Safety Status: Good safety awareness;Follows instructions Safety Interventions: Education;Performed rounding Safety: Describe response to interventions during past 7 days, include identified triggers for behavior episodes, and management plans: safety maintained Cognitive Orientation: Person;Place;Time;Date Cognitive Deficits Observed: None Cognitive: Describe interventions used during past 7 days and response: A&Ox 4 Quality of Sleep: Restful Approximate Hours Slept: 6-8 Sleep: Describe interventions in use and patient response during past 7 days: cluster care Medical Issues: CA, confusion, dizziness, HTN, tremor Pain Issues: denies Educational Topics: POC Patient-Family barriers to learning: None Is patient on dialysis?: No documented in this encounter Plan of Treatment Not on file documented as of this encounter Visit Diagnoses Not on filedocumented in this encounter Care Teams Rental Sales Associate Relationship Specialty Start Date End Date Rusty Delgado [address] [facility] [address] [place] [address] PCP - General 09/30/24 documented as of this encounter
--- OUTSIDE RECORDS SUMMARY | 2024-11-19 02:30 | XMS_ITS | Encounter Summary ---
Author Organization [facility] Address [address] [facility] [place] [address] Care Team Providers Care Software Clerk Name Role Phone Rusty Delgado MD Unavailable [phone] Rusty Delgado MD Primary Care Provider Encounter Details Date Type Department Care Team (Late st Contact Info) Description 07/05/2023 Abstract [facility] Danny Whitten [address] [facility] [address] [place] [phone] Rusty Delgado MD 112 [facility] 110 [place], [place] [id number] Social History Tobacco Use Types Packs/Day Years [...] Visit [facility] Danny Whitten [address] [facility] [address] [place] [phone] Rusty Delgado MD 112 [facility] [address] [place], [place] [phone] documented as of this encounter Visit Diagnoses Not on filedocumented in this encounter Care Teams Software Clerk Relationship Specialty Start Date End Date Rusty Delgado MD 112 [facility] 110 [place] [address] PCP - Aeterin 04/17/22 Rusty Delgado MD 112 [facility] [address] [place] [address] PCP - General Internal Medicine 11/23/22 documented as of this encounter
--- OUTSIDE RECORDS SUMMARY | 2024-11-19 02:31 | XMS_ITS | Encounter Summary ---
Author Organization [facility] Address [facility] [place] [address] Care Team Providers Care Manager Of Medical Name Role Phone Irena Johnson MD Unavailable Vanessa Arora MD Unavailable [phone] Danny WONG MD, Rusty Gomez Primary Care Provider [phone] Carina Ziegler RN Unavailable Unavailable Source Comments In the event this information is protected by the Federal Confidentiality of Alcohol and Drug AbusePatient Records regulations: The Federal rules restrict any use of the information to criminally investigate or prosecute any alcohol or drug abuse patient.[facility] Encounter Details Date Type Department Care Team (Late st Contact Info) Description 10/31/2024 Results Follow-Up Transplant Center [address] [id number] Eva Dhillon, LEO [address] [address] Social History Tobacco Use Types Packs/Day Years Used Date Smoking Tobacco: Former Cigarettes 1 20 1 04/20/1970 - 02/18/1991 Alcohol Use Standard Drinks/Week Comments Not Currently 0 (1 standard drink = 0.6 oz pur e alcohol) Recovering alcoholic [facility] Utilities Answer Date Recorded In the [...] is lower risk 7 04/25/2024 Data from: https://www.neighborhoodatlas.medicine.[facility].edu/. Last address used for calculation [...] Encounter Note - Carina Ziegler RN - 11/08/2024 1:29 PM EDT Reviewed liver transplant results and followed by [facility] staff-tacro level better. They are followingscr Carina Ziegler RN (Molly), BSN, [facility] Liver Manager Bridge * Result Encounter Note - Eva Dhillon RN - 10/31/2024 2:29 PM EDT Standing labs reviewed, c/w recent lab values. CRP slightly improved. BNP per [facility] TATUM. No changes to current POC at this time. MELISSA Vásquez, RN, [facility] Liver Manager Bridge documented in this encounter Plan of Treatment Upcoming Encounters Date Type Department Care Team (Late st Contact Info) Description 11/21/2024 4:00 PM EDT Office Visit Transplant Center [address] [place] [address] KAYLIE ARELLANO 11/21/2024 5:40 PM EDT Appointment MRI Q [address] [address] Compression fracture of cervical spine, non-traumatic, with delayed healing, subsequent encounter [M48.52XG] 11/21/2024 6:20 PM EDT Appointment MRI Q [address] [address] Compression fracture of cervical spine, non-traumatic, with delayed healing, subsequent encounter [M48.52XG] 11/21/2024 7:00 PM EDT Appointment MRI Q [address] [address] Compression fracture of cervical spine, non-traumatic, with delayed healing, subsequent encounter [M48.52XG] 02/03/2025 9:00 AM EDT [facility] Neurology [address] [place] [address] Devyn Roach MD 0 [place] [address] Vertigo [R42] 02/10/2025 11:00 AM EDT Appointment Gastroenterology [address] [address] Jane Correia MD [address] [place] [address] Schedule in about 3 months to remove biliary stent documented as of this encounter Goals Goal Patient Goal Type Associated Problems Recent Progress Patient-Stated? Author Blood Pressure < 130/80 Blood Pressure 122/80( 025 5:30 PM EDT) No Vanessa Arora MD documented as of this encounter Visit Diagnoses Not on filedocumented in this encounter Care Teams Manager Of Medical Relationship Specialty Start Date End Date Rusty Delgado II, MD [address] [facility] [address] [place] [address] PCP - General Internal Medicine 05/28/24 Irena Johnson MD [address] [place] [address] [address] [place] [address] Referring Gastroenterology 03/12/24 Vanessa Arora MD [address] [place] [address] Primary Staff Physician Cardiology 05/02/24 Carina Ziegler, RN [facility] [address] [place] [address] Registered Nurse Transplant Center 09/17/24 documented as of this encounter
--- OUTSIDE RECORDS SUMMARY | 2024-11-19 02:31 | XMS_ITS | Patient Health Record ---
Author Organization [facility] [place] Address [address] [place] [address] Care Team Providers Care Vice President Digital Strategist Name Role Phone Rusty Delgado MD Primary Care Provider Unavail Devyn Ramsey Unavailable [phone] Allergies No Known Allergies Results Component Value Reference Range Notes Body Fluid Culture, Sterile Reviewed date:01/09/2024 08:00:49 AM Interpretation: Performing Lab: Notes/Report: Comment Pleural fluid [facility] , Body Fluid Culture, Sterile See Below For Report WILL FOLLOW Body Fluid Culture, Sterile Body Fluid Culture, Sterile WILL FOLLOW Body Fluid Culture, Sterile Body Fluid Culture, Sterile No growth after 18-24 hours. WILL FOLLOW Body Fluid Culture, Sterile Body Fluid Culture, Sterile No growth in 36 - 48 hours. WILL FOLLOW Body Fluid Culture, Sterile Body Fluid Culture, Sterile No growth in 56 - 72 hours. WILL FOLLOW Body Fluid Culture, Sterile Performing Lab: see note LC - [facility] LB Anaerobic Cult, Extended Inc ub Reviewed date:01/09/2024 08:00:43 AM Interpretation: Performing Lab: Notes/Report: Comment Pleural fluid [facility] , Anaerobic Cult, Extended Incub See Below For Report Anaerobic Cult, Extended Incub Anaerobic Cult, Extended Incub No aerobic or anaerobic growth in 48 hours. Anaerobic Cult, Extended Incub Anaerobic Cult, Extended Incub Anaerobic Cult, Extended Incub Anaerobic Cult, Extended Incub No aerobic or anaerobic growth in 72 hours. Anaerobic Cult, Extended Incub Anaerobic Cult, Extended Incub Anaerobic Cult, Extended Incub Anaerobic Cult, Extended Incub No growth in 7 days. Anaerobic Cult, Extended Incub Anaerobic Cult, Extended Incub Anaerobic Cult, Extended Incub Anaerobic Cult, Extended Incub No growth after 14 days. Anaerobic Cult, Extended Incub Performing Lab: see [facility] - [facility] Body Fluid Culture, Sterile Reviewed date:12/12/2023 07:17:52 AM Interpretation: Performing Lab: Notes/Report: Comment Pleural fluid [facility] , Body Fluid Culture, Sterile See Below For Report WILL FOLLOW Body Fluid Culture, Sterile Body Fluid Culture, Sterile WILL FOLLOW Body Fluid Culture, Sterile Body Fluid Culture, Sterile No growth after 18-24 hours. WILL FOLLOW Body Fluid Culture, Sterile Performing Lab: see note - [facility] Gram Stain Result Reviewed date:01/09/2024 08:00:58 AM Interpretation: Performing Lab: Notes/Report: Comment Pleural fluid [facility] , Gram Stain Result See Below For Report Gr am Stain Result Gram Stain Result No white blood cells seen. Gram Stain Result Gram Stain Result Gram Stain Result Gram Stain Result No organisms seen Gram Stain Result Gram Stain Result Performed at: [facility] Gram Stain Result Gram Stain Result [address] [place], [place] [id number] Gram Stain Result Gram Stain Result [employer] Contact Printer: Sunshine Tang PhD, Phone: [phone] Gram Stain Result Performing Lab: see note [facility] SEE REPORT - Articulation Officer Id information not found for OBX-specific blueprint reproducer legend Protein, Body Fluid Reviewed date:12/12/2023 07:18:02 AM Interpretation: Performing Lab: Notes/Report: Comment Pleural fluid [facility] , Protein, Body Fluid 1.6 . g/dL : :____ : : :____ : : : Nonmalignant: <3.0 : : Lymph : 2.2 - 6.0 : : Saliva : 0.1 - 0.2 : : :____ : : : : : Synovial Fluid : <2.5 : : BODY FLUID TYPE : TOTAL PROTEIN : : Bile, Clear : <0.9 : : :____ : : Human Milk : 1.9 - 2.0 : : :____ : : Tears : 0.8 - 0.9 : : :____ : : :____ : for Adults and Children 2008. [facility] : :____ : : :____ : : :____ : : (Mixed Glands) : : : :____ : : Nasal Secretion : 0.1 - 3.5 : : Ascitic Fluid : Malignant: >3.0 : : Juice : (post stimulation) : Lopeno W, Marsha VAshley Reference Intervals : Pleural Fluid : Exudate: >0.3 : Rotkreuz; Hardeman: October 2008. : : Transudate: <0.3 : Edition (V9.1) [employer] [employer], : :____ : : Pancreatic : 0.0 - 0.1 : : Amniotic Fluid : <0.4 : : Bile, Yellow : 0.2 - 0.6 : Performing Lab: see note LC - [facility] LB Glucose, Body Fluid Reviewed date:12/12/2023 07:18:06 AM Interpretation: Performing Lab: Notes/Report: Comment Pleural fluid [facility] , Glucose, Body Fluid 116 . mg/dL : :____ : : Nasal Secretion : < 10 : : Pleural Fluid : 65 - 99 : Lopeno WMarsha V. Reference Intervals : Synovial Fluid : 65 - 99 : : :____ : : :____ : : Sweat : < 7 : Rotkreuz; Hardeman: October 2008. : (Mixed Glands) : : for Adults and Children 2007. Ninth : Bile, Yellow : < 8 : : :____ : : :____ : : :____ : : :____ : : Tears : 76 - 288 : : :____ : : :____ : : Lymph : 48 - 200 : : :____ : : BODY FLUID TYPE : GLUCOSE : : :____ : : Amniotic Fluid : 45 - 76 : : Saliva : < 2 : edition (V9.1) [employer] [facility] [employer], : Bile, Clear : < 5 : Performing Lab: see note - [facility] LB Cell Ct, Serous Fluid Reviewed date:12/12/2023 07:18:11 AM Interpretation: Performing Lab: Notes/Report: [facility] , Color, Serous Yellow . Yellow/Straw Colorless to Pale Clarity, Serous Clear Clear Nucleated Cells, Serous 135 0-499 /mm3 in exudates. Pleural Fluid, with <1000 Nucleated cells/uL has been associated with transudates while >1000 uL may be seen RBC, Serous Rare Not Estab. /uL Neut, Serous 2 0-24 % Lymphocytes, Serous 32 Not Estab. % Macrophages, Serous 66 Not Estab. % Eosinophils, Serous 0 Not Estab. % [employer] Contact Printer: John Tang PhD, Phone: [phone] Performed at: [address] [place] [id number] Lining Cells, Serous TNP . Comments: TNP . Performing Lab: see note CHRISTY - Nannette MCDONALD LD, Body Fluid Reviewed date:12/12/2023 07:18:04 AM Interpretation: Performing Lab: Notes/Report: Comment Pleural fluid [facility] , MARYELLEN, Body Fluid 58 . IU/L Performed at: - [facility] : : Nonmalignant: < 60% : : :____ : : :____ : for Adults and Children 2007. Marsha Bliss V. Reference Intervals Edition (V9.1) [facility] [employer], : : Transudate: <200 : : Gastric Juice : < 35 : : BODY FLUID TYPE : LDH : : Saliva : 113 - 609 : : : of the serum LDH : : :____ : : Pleural Fluid : Exudate: >200 : : : of the serum LDH : : Synovial Fluid : <240 : [address] [place], [place] [id number] : :____ : : Ascitic Fluid : Malignant: > 60% : : :____ : : (Mixed Glands) : : Alberto; Hardeman: October 2008. [employer] Contact Printer: John Tang PhD, Phone: [phone] : :____ : Performing Lab: see note [facility] LB Triglycerides, Fluid Reviewed date:12/12/2023 07:17:58 AM Interpretation: Performing Lab: Notes/Report: Comment Pleural fluid [facility] , Triglycerides, Fluid 20 Not Estab. mg/dL The reference interval(s) and other method performance specifications Performed at: [facility] [employer] Contact Printer: John Tang PhD, Phone: [phone] integrated into the clinical context for interpretation. have not been established for this body fluid. The test result must be [address] [place] [id number] Performing Lab: see note [facility] Reason For Referral No Information Medications Medication SIG (Take, Route, Fr equency, Duration) Notes Start Date End Date Status Furosemide 20 MG TAKE 3 TABLETS BY MO UT TWO TIMES DAILY. Oral for 5 Days Act lovely Lactulose 10 GM/15ML Oral for 10 Days Active Lansoprazole 30 MG TAKE 1 CAPSULE BEFOR E A MEAL TWICE DAILY FOR 30 DAYS Oral for 30 Days Active Xifaxan 550 MG 1 tablet Orally Daily Active Spironolactone 50 MG Oral for 10 Days Active Carvedilol 3.125 MG TAKE 1 TABLET BY ALEXANDRA TH WITH BREAKFAST AND 1 TABLET WITH EVENING MEAL Oral for 30 Days Ac tive Famotidine 40 MG TAKE 1 TABLET BY ALEXANDRA TH EVERY DAY IN THE MORNING Oral for 30 Days Active Multi Complete - as directed Orally Active Immunizations Vaccine Route Administration Date Status Comme nts Flu, Fluad (74148) 65 yrs+, single-dose syringe (0888-8999) Unknown 01/24/2023 Administered Tdap (Boostrix) Unknown 03/22/2022 Administered ZOSTER (SHINGLES) VACCINE (HZV) Unknown 04/30/2022 Admi nistered Social History Tobacco Use: Social History Observation Description Date Details (start date - stop date) Former Smoker NA - NA Tobacco Control (Standard) Question Answer Notes Tobacco use: Former smoker How long has it been since y ou last smoked? Greater than 10 years Additional Findings: Tobacco non-user Ex-heavy c igarette smoker (20-30/day) Problems Problem Type SNOMED Code ICD Code Onset Dates Problem Status W/U Status Risk Notes Problem Pleural effusion (84246329) Pleural effusion in other conditions classified elsewhere (J91.8) Active confirmed Problem JARAMILLO - Nonalcoholic steatohepatitis (979246405) JARAMILLO (nonalcoholic steatohepatiti s) (K75.81) Active confirmed Problem Ex-tobacco user (finding) (661858886) History of tobacco abuse (Z87.891) Active confirmed Problem Hepatic cirrhosis (21836130) Hepatic cirrhosis (K74.60) Active confirmed Vital Signs Heart Rate 73 /min 01/09/2024 Temperature 96.8 degrees Fahrenheit 01/09/2024 Respiratory Rate 18 /min 01/09/2024 Oximetry 94 % 01/09/2024 Blood pressure diastolic 71 mm Hg 01/09/2024 Height 70 in 01/09/2024 Blood pressure systolic 105 mm Hg 01/09/2024 Weight 185.9 lbs 01/09/2024 BMI 26.67 kg/m2 01/09/2024 Encounters Encounter Location Date Provider Diagnosis [facility] [place] [address] [place] [address] 01/09/2024 [facility] Pleural effusion in other conditions classified elsewhere J91.8 ; Hepatic cirrhosis K74.60 ; JARAMILLO (nonalcoholic steatohepatitis) K75.81 and History of tobacco abuse Z87.891 [facility] [place] [address] [place] [address] 12/11/2023 [facility] [place] [address] [place] [address] 01/01/2024 [facility] [place] [address] [place] [address] 01/17/2024 [facility] [place] [address] [place] [address] 02/13/2024 [facility] [place] [address] [place] [address] 04/22/2024 [facility] [place] [address] [place] [address] 07/08/2024 [facility] Assessments Encounter Date Diagnosis (ICD Code) Assessment Notes Treatment Notes Treatment Clinical Notes Section Notes 01/09/2024 Pleural effusion in other conditions classified elsewhere (ICD-10 - J91.8) 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 s/p right thoracentesis 12/08/2023 d/t respiratory symptoms, with 2L removed. Ultrasound today shows reaccumulation of fluid. Explained to patient and that he will continue to have recurrent pleural effusion underlying disorders corrected, which is the hepatic cirrhosis (ultimately treated by a liver transplant which is not currently planned). After thoracentesis is performed, the fluid would rapidly reaccumulate. As he is not having any symptoms at this current time, we will hold off on a therapeutic thoracentesis. Discussed pleurodesis-this is only effective approximately 50% of the time in a hepatic hydrothorax; There is concern that fluid reaccumulation would be too rapid for this to even be possible. After discussion with patient, the plan for now will be to monitor VS symptoms. If begins having significant shortness of breath, a thoracentesis can be performed at that time with the knowledge that this is only a temporary measure. He voiced understanding of the plan of care. 01/09/2024 Hepatic cirrhosis (ICD-10 - K74.60) F/U with GI/scruff worker. 01/09/2024 JARAMILLO (nonalcoholic steatohepatitis ) (ICD-10 - K75.81) F/U with GI/scruff worker. 01/09/2024 History of tobacco abuse (ICD-10 - Z87.891) History of smoking, quit 35 years ago. This patient does not meet current LDCT criteria (e.g. age, time from cessation, # pack-years). Plan Of Treatment No Information Insurance Providers Payer Name Payer Address Payer Phone Subscriber Number Group Number Insured Name Patient Relationship to Insured Coverage Start Date Coverage End Date [employer] MED[employer]ARE [address] [place], [place] [id number] Charles Stewart Self - patient is the insured Medical (General) History Medical History History ICD Code Pleural effusion in other conditions cla ssified elsewhere J91.8 Hepatic cirrhosis K74.60 JARAMILLO (nonalcoholic steatohepatitis) K75. 81 Hepatic encephalopathy K76.82 Esophageal varices I85.00 Tipton's esophagus K22.70 DM2 (diabetes mellitus, type 2) E11.9 Hyponatremia E87.1 Osteoporosis M81.0 HTN (hypertension) I10 GERD (gastroesophageal reflux disease) K 21.9 History of tobacco abuse Z87.891 Surgical History Surgery Date(Month/Year) Thoracentesis 12/08/2023 cholecystectomy hemorrhoidectomy tonsillectomy and adenoidectomy Right Elbow Surgery EGD/Colonoscopy Hernia Repair Paracentesis Lipoma Removal-Neck Hospitalization History Reason Date(Month/Year) Pleural Effusion-TBH 12/07/2023
--- OUTSIDE RECORDS SUMMARY | 2024-11-19 02:31 | XMS_ITS | Encounter Summary ---
Author Organization [facility] Address [address] [place] [address] Care Team Providers Care Commissioner Conservation Of Resources Name Role Phone Irena Johnson MD Unavailable Vanessa Arora MD Unavailable [phone] Danny WONG MD, Rusty Gomez Primary Care Provider [phone] Carina Ziegler RN Unavailable Unavailable Source Comments In the event this information is protected by the Federal Confidentiality of Alcohol and Drug AbusePatient Records regulations: The Federal rules restrict any use of the information to criminally investigate or prosecute any alcohol or drug abuse patient.[facility] Reason for Visit * Reason Comments Patient Update Encounter Details Date Type Department Care Team (Late st Contact Info) Description 10/28/2024 Telephone Gastroenterology [address] [address] Connie Garg MD [address] [place] [address] Patient Update Social History Tobacco Use Types Packs/Day Years Used Date Smoking Tobacco: Former Cigarettes 1 20 1 04/20/1970 - 02/18/1991 Alcohol Use Standard Drinks/Week Comments Not Currently 0 (1 standard drink = 0.6 oz pur e alcohol) Recovering alcoholic [facility] Utilities Answer Date Recorded In the [...] is lower risk 7 04/25/2024 Data from: https://www.neighborhoodatlas.medicine.[facility].edu/. Last address used for calculation [place] [...] * Telephone Encounter - Jaron Chinchilla - 10/28/2024 10:35 AM EDT [employer] Medication reconciliation post discharge letter Scanned in under external correspondence/insurance Jaron Chinchilla Flight Service Specialist ll documented in this encounter Plan of Treatment Upcoming Encounters Date Type Department Care Team (Late st Contact Info) Description 11/21/2024 4:00 PM EDT Office Visit Transplant Center [address] [address] KAYLIE ARELLANO 11/21/2024 5:40 PM EDT Appointment MRI Q [address] [address] Compression fracture of cervical spine, non-traumatic, with delayed healing, subsequent encounter [M48.52XG] 11/21/2024 6:20 PM EDT Appointment MRI Q [address] [address] Compression fracture of cervical spine, non-traumatic, with delayed healing, subsequent encounter [M48.52XG] 11/21/2024 7:00 PM EDT Appointment MRI Q [address] [address] Compression fracture of cervical spine, non-traumatic, with delayed healing, subsequent encounter [M48.52XG] 02/03/2025 9:00 AM EDT [facility] Neurology [address] [place] [address] Devyn Roach MD [address] [place] [address] Vertigo [R42] 02/10/2025 11:00 AM EDT Appointment Gastroenterology [address] [address] Jane Correia MD [address] [place] [address] Schedule in about 3 months to remove biliary stent documented as of this encounter Goals Goal Patient Goal Type Associated Problems Recent Progress Patient-Stated? Author Blood Pressure < 130/80 Blood Pressure 122/80( 025 5:30 PM EDT) No Vanessa Arora MD documented as of this encounter Visit Diagnoses Not on filedocumented in this encounter Additional Health Concerns Infection Onset Date Last Indicated Resolved Time Parainfluenza Virus Comment:Asymptomatic per RN 10/08/2024 10/08/2024 10/28/2024 8 :47 AM EDT documented as of this encounter Care Teams Commissioner Conservation Of Resources Relationship Specialty Start Date End Date Rusty Delgado II, MD [address] [facility] [address] [place] [address] PCP - General Internal Medicine 05/28/24 Irena Johnson MD [address] [facility] 16[address] [facility] [place] [address] Referring Gastroenterology 03/12/24 Vanessa Arora MD [address] [place] [address] Primary Staff Physician Cardiology 05/02/24 Carina Ziegler, RN [facility] [address] [place] [address] Registered Nurse Transplant Center 09/17/24 documented as of this encounter
--- OUTSIDE RECORDS SUMMARY | 2024-11-19 02:31 | XMS_ITS | Encounter Summary ---
Author Organization [facility] Address [facility] [place] [address] Care Team Providers Care Organization Development Consultant Name Role Phone Irena Johnson MD Unavailable Vanessa Arora MD Unavailable [phone] Danny WONG MD, Rusty Gomez Primary Care Provider [phone] Carina Ziegler RN Unavailable Unavailable Source Comments In the event this information is protected by the Federal Confidentiality of Alcohol and Drug AbusePatient Records regulations: The Federal rules restrict any use of the information to criminally investigate or prosecute any alcohol or drug abuse patient.[facility] Encounter Details Date Type Department Care Team (Late st Contact Info) Description 10/11/2024 Results Follow-Up Transplant Center [address] [id number] Carina Ziegler, RN [address] [address] Social History Tobacco Use Types Packs/Day Years Used Date Smoking Tobacco: Former Cigarettes 1 20 1 04/20/1970 - 02/18/1991 Alcohol Use Standard Drinks/Week Comments Not Currently 0 (1 standard drink = 0.6 oz pur e alcohol) [facility] Utilities Answer Date Recorded In the past [...] 7 04/25/2024 Data from: https://www.neighborhoodatlas.medicine.[facility].edu/. Last address used for calculation [...] 4:27 PM EST Cecil Waggoner RN * Do you have serious difficulty [...] PM EDT Office Visit Transplant Center [address] [address] [place] LASHAWN ARELLANO 11/21/2024 5:40 PM EDT Appointment MRI Q [address] [address] Compression fracture of cervical spine, non-traumatic, with delayed healing, subsequent encounter [M48.52XG] 11/21/2024 6:20 PM EDT Appointment MRI Q [address] [address] Compression fracture of cervical spine, non-traumatic, with delayed healing, subsequent encounter [M48.52XG] 11/21/2024 7:00 PM EDT Appointment MRI Q [address] [address] Compression fracture of cervical spine, non-traumatic, with delayed healing, subsequent encounter [M48.52XG] 02/03/2025 9:00 AM EDT [facility] Neurology [address] [id number] Devyn Roach MD [address] [place] [address] Vertigo [R42] 02/10/2025 11:00 AM EDT Appointment Gastroenterology [address] [address] Jane Correia MD [address] [place] [address] Schedule in about 3 months [...] documented as of this encounter Care Teams Organization Development Consultant Relationship Specialty Start Date End Date Rusty Delgado II, MD 112 [facility] [address] [place] [address] PCP - General Internal Medicine 05/28/24 Irena Johnson MD 3000 [facility] [address] [facility] [place] [id number] Referring Gastroenterology 03/12/24 Vanessa Arora MD [address] [place] [address] Primary Staff Physician Cardiology 05/02/24 Carina Ziegler, LEO [facility] [address] [place] [address] Registered Nurse Transplant Center 09/17/24 documented as of this encounter
--- OUTSIDE RECORDS SUMMARY | 2024-11-19 02:31 | XMS_ITS | Encounter Summary ---
Author Organization [facility] Address [address] [place] [address] Care Team Providers Care Loaders Name Role Phone Irena Johnson MD Unavailable Vanessa Arora MD Unavailable [phone] Danny WONG MD, Rusty Gomez Primary Care Provider [phone] Carina Ziegler RN Unavailable Unavailable Source Comments In the event this information is protected by the Federal Confidentiality of Alcohol and Drug AbusePatient Records regulations: The Federal rules restrict any use of the information to criminally investigate or prosecute any alcohol or drug abuse patient.[facility] Encounter Details Date Type Department Care Team (Late st Contact Info) Description 10/09/2024 [place] [address] Provider, [facility] Actionable Imaging Result Notification Patient Outreach Social History Tobacco Use Types Packs/Day Years Used Date Smoking Tobacco: Former Cigarettes 1 20 1 04/20/1970 - 02/18/1991 Alcohol Use Standard Drinks/Week Comments Not Currently 0 (1 standard drink = 0.6 oz pur e alcohol) [facility] Utilities Answer Date Recorded In [...] risk 7 04/25/2024 Data from: https://www.neighborhoodatlas.medicine.[facility].edu/. Last address used for calculation Eugene Villanueva [...] PM EDT Office Visit Transplant Center [address] [address] KAYLIE ARELLANO 11/21/2024 5:40 PM EDT Appointment MRI Q [address] [address] Compression fracture of cervical spine, non-traumatic, with delayed healing, subsequent encounter [M48.52XG] 11/21/2024 6:20 PM EDT Appointment MRI Q [address] [address] Compression fracture of cervical spine, non-traumatic, with delayed healing, subsequent encounter [M48.52XG] 11/21/2024 7:00 PM EDT Appointment MRI Q [address] [address] Compression fracture of cervical spine, non-traumatic, with delayed healing, subsequent encounter [M48.52XG] 02/03/2025 9:00 AM EDT [facility] Neurology [address] [place] [address] Devyn Roach MD [address] [place] [address] Vertigo [R42] 02/10/2025 11:00 AM EDT Appointment Gastroenterology [address] [address] Jane Correia MD [address] [place] [address] Schedule in about 3 months [...] documented as of this encounter Care Teams Loaders Relationship Specialty Start Date End Date Rusty Delgado II, MD [address] [facility] [address] [place] [address] PCP - General Internal Medicine 05/28/24 Irena Johnson MD 3000 [facility] 1620 [facility] [place] [address] Referring Gastroenterology 03/12/24 Vanessa Arora MD [address] [place] [address] Primary Staff Physician Cardiology 05/02/24 Carina Ziegler, RN [facility] [address] [place] [address] Registered Nurse Transplant Center 09/17/24 documented as of this encounter
--- OUTSIDE RECORDS SUMMARY | 2024-11-19 02:31 | XMS_ITS | Encounter Summary ---
Author Organization [facility] Address [facility] [place] [address] Care Team Providers Care Funnel Setter Name Role Phone Irena Johnson MD Unavailable Vanessa Arora MD Unavailable [phone] aDnny WONG MD, Rusty Gomez Primary Care Provider [phone] Carina Ziegler RN Unavailable Unavailable Source Comments In the event this information is protected by the Federal Confidentiality of Alcohol and Drug AbusePatient Records regulations: The Federal rules restrict any use of the information to criminally investigate or prosecute any alcohol or drug abuse patient.[facility] Encounter Details Date Type Department Care Team (Late st Contact Info) Description 10/10/2024 Patient Msg Transplant Center [address] [place] [id number] Carina Ziegler, RN [address] [address] out of the office for the rest of the day... Social History Tobacco Use Types Packs/Day Years Used Date Smoking Tobacco: Former Cigarettes 1 20 1 04/20/1970 - 02/18/1991 Alcohol Use Standard Drinks/Week Comments Not Currently 0 (1 standard drink = 0.6 oz pur e alcohol) [facility] Utilities Answer Date Recorded In [...] 7 04/25/2024 Data from: https://www.neighborhoodatlas.medicine.[facility].edu/. Last address used for calculation Eugene [...] EDT Office Visit Transplant Center [address] [address] [place] LASHAWN ARELLANO 11/21/2024 5:40 PM EDT Appointment MRI Q [address] [address] Compression fracture of cervical spine, non-traumatic, with delayed healing, subsequent encounter [M48.52XG] 11/21/2024 6:20 PM EDT Appointment MRI Q [address] [address] Compression fracture of cervical spine, non-traumatic, with delayed healing, subsequent encounter [M48.52XG] 11/21/2024 7:00 PM EDT Appointment MRI Q [address] [address] Compression fracture of cervical spine, non-traumatic, with delayed healing, subsequent encounter [M48.52XG] 02/03/2025 9:00 AM EDT [facility] Neurology [address] [place] [address] Devyn Roach MD [address] [place] [address] Vertigo [R42] 02/10/2025 11:00 AM EDT Appointment Gastroenterology [address] [address] Jane Correia MD [address] [place] [address] Schedule in about 3 months [...] documented as of this encounter Care Teams Funnel Setter Relationship Specialty Start Date End Date Rusty Delgado II, MD 112 [facility] [address] [place] [address] PCP - General Internal Medicine 05/28/24 Irena Johnson MD 3000 [facility] 1620 [facility] [place] [address] Referring Gastroenterology 03/12/24 Vanessa Arora MD 950 [place] [address] Primary Staff Physician Cardiology 05/02/24 Carina Ziegler, [facility] [address] [place] [address] Registered Nurse Transplant Center 09/17/24 documented as of this encounter
--- OUTSIDE RECORDS SUMMARY | 2024-11-19 02:31 | XMS_ITS | Encounter Summary ---
Author Organization [facility] Address [facility] [place] [address] Care Team Providers Care Marine Engineering Teacher Name Role Phone Irena Johnson MD Unavailable Vanessa Arora MD Unavailable [phone] Danny WONG MD, Rusty Gomez Primary Care Provider [phone] Carina Ziegler RN Unavailable Unavailable Source Comments In the event this information is protected by the Federal Confidentiality of Alcohol and Drug AbusePatient Records regulations: The Federal rules restrict any use of the information to criminally investigate or prosecute any alcohol or drug abuse patient.[facility] Encounter Details Date Type Department Care Team (Late st Contact Info) Description 10/18/2024 Patient Msg Transplant Center [address] [place] [phone] Carina Ziegler, RN [address] [address] Out of the office... Social History Tobacco Use Types Packs/Day Years Used Date Smoking Tobacco: Former Cigarettes 1 20 1 04/20/1970 - 02/18/1991 Alcohol Use Standard Drinks/Week Comments Not Currently 0 (1 standard drink = 0.6 oz pur e alcohol) [facility] Utilities Answer Date Recorded In [...] is lower risk 7 04/25/2024 Data from: https://www.neighborhoodatlas.medicine.[facility].edu/. Last address used for calculation Eugene [...] PM EDT Office Visit Transplant Center [address] [address] [place] LASHAWN ARELLANO 11/21/2024 5:40 PM EDT Appointment MRI Q [address] [address] Compression fracture of cervical spine, non-traumatic, with delayed healing, subsequent encounter [M48.52XG] 11/21/2024 6:20 PM EDT Appointment MRI Q [address] [address] Compression fracture of cervical spine, non-traumatic, with delayed healing, subsequent encounter [M48.52XG] 11/21/2024 7:00 PM EDT Appointment MRI Q [address] [address] Compression fracture of cervical spine, non-traumatic, with delayed healing, subsequent encounter [M48.52XG] 02/03/2025 9:00 AM EDT [facility] Neurology [address] [place] [address] Devyn Roach MD [address] [place] [address] Vertigo [R42] 02/10/2025 11:00 AM EDT Appointment Gastroenterology [address] [id number] Jane Correia MD 4908 [place] [address] Schedule in about 3 months [...] documented as of this encounter Care Teams Marine Engineering Teacher Relationship Specialty Start Date End Date Rusty Delgado II, MD [address] [facility] [address] [place] [address] PCP - General Internal Medicine 05/28/24 Irena Johnson MD 3000 [facility] 1620 [facility] [place] [id number] Referring Gastroenterology 03/12/24 Vanessa Arora MD [address] [place] [address] Primary Staff Physician Cardiology 05/02/24 Carina Ziegler RN [facility] [address] [place] [address] Registered Nurse Transplant Center 09/17/24 documented as of this encounter
--- NOTE | 2024-11-19 03:22 | PC.NURSE ---
this patient just returned for ct dept, and i informed this patient and his that now waiting on ct dept. this patient voices no concerns, needs and shows no signs of distress
[2024-11-19] MEDS: MORPHINE SULFATE 4 MG/ML VIAL IV ×2 (04:15→15:56)
--- NOTE | 2024-11-19 04:49 | PC.NURSE ---
this patient resting more comfortable since pain medication has been given, 10/24 this patient and his updated that we are still waiting on the ct report to come back this patient voices no concerns, needs and shows no signs of distress
--- NOTE | 2024-11-19 06:47 | ECG_ITS ---
[facility] Test Date: 2024-11-19 Pat Name: LOYD BLANDON Department: Room: - Gender: Male [employer] Service Officer: : 1955 Requested By: 1030 Order Number: [id number] Reading MD: KATHERINE GALEAS M.D. Measurements Intervals [place] Rate: 94 P: 27 W[place]: 142 QRS: 88 QRSD: 80 T: 34 QT: 338 QTc: 390 Interpretive Statements 1100 Sinus rhythm 1102 Sinus arrhythmia 8102 Low QRS voltage in chest leads 9120 atypical ECG Compared to ECG 12/07/2023 13:34:22 Sinus bradycardia no longer present ST (T wave) deviation no longer present Electronically Signed On 11-20-2024 6:50:10 EDT by KATHERINE GALEAS M.D.
[2024-11-19 07:13] LABS: Hematocrit 28.0 % (42.0-54.0); Hemoglobin 9.1 g/dL (14.0-18.0); Mean Corpuscular HGB Conc 32.5 g/dL (29.9-35.2); Mean Corpuscular Hemoglobin 31.5 pg (25.9-34.0); Mean Corpuscular Volume 96.9 fL (80.0-94.0); Platelet Count 336 10^3/uL (150-450); Red Blood Count 2.89 10^6/uL (4.70-6.10); White Blood Count 2.6 10^3/uL (4.0-11.0)
[2024-11-19 07:21] LABS: Anion Gap 12.9; Blood Urea Nitrogen 15.0 mg/dL (7.0-18.0); Calcium 8.7 mg/dL (8.5-10.1); Carbon Dioxide 25.8 mmol/L (21.0-32.0); Chloride 98 mmol/L (98-107); Estimated GFR (African America 60 (>=60 mL/min/1.73m^2); Estimated GFR (Non-African Ame 49 (>=60 mL/min/1.73m^2); Glucose 134 mg/dL (74-106); Potassium 5.7 mmol/L (3.5-5.1); Sodium 131 mmol/L (136-145)
[2024-11-19 07:45] LABS: Band Neutrophils Absolute 0.7 10^3/uL (0.0-0.3); Eosinophils Absolute Manual 0.00 10^3/uL (0.00-0.70); Eosinophils Percent Manual 0.0 % (0.9-7.0)
[2024-11-19 07:53] LABS: Basophils Abs Manual 0.02 10^3/uL (0.00-0.10); Basophils Percent Manual 1.0 % (0.2-2.0); Lymphocytes Absolute Manual 0.23 10^3/uL (1.20-3.80); Lymphocytes Percent Manual 9.0 % (20.5-60.0); Monocytes Absolute Manual 0.13 10^3/uL (0.30-0.80); Monocytes Percent Manual 5.0 % (1.7-12.0); Segmented Neut Absolute Manual 1.50 10^3/uL (1.4-6.5); Segmented Neutrophils % Manual 58.0 (43.0-75.0)
--- NOTE | 2024-11-19 10:35 | PC.NURSE ---
This nurse took over care for patient At this time, patients has just returned after going home to obtain patients daily medications - transplant meds pts has already administered medications to patient She informs this nurse that his confusion is getting worse - and patient becomes irritated - sternly telling his to forget about it, its fine Pts states this confusion is getting worse This nurse explains this may be due to the pain medications and the stress his body is going through at this time Updated patient and that we are still waiting to hear from [facility]
--- NOTE | 2024-11-19 11:55 | PC.NURSE ---
Dr. Hair on the phone with physician from [facility] discussing care plan for patient
--- NOTE | 2024-11-19 13:43 | SWNOTE1 ---
SW stopped down to discuss rehab with pt and . in room and did answer most questions, pt was in and out of sleep. Pt was at acute rehab in [place]. voiced between hospital and rehab he had been in [place] for 90 days. She voiced they were all in agreement that pt was ready for discharge. This included his doctors. Pt came home on Monday and came in early this morning to hospital. SW and pt's spoke about acute rehab and senior living facility. These are 2 different things. Pt was getting 4 sessions of 45 minute therapy in a row at acute rehab. SW is not sure pt will qualify for this and if he has acute rehab days left. SW voiced if pt is admitted we will have our therapy team come in and complete evaluation and then we can look in to skilled or acute rehab. Pt's voiced concerns about skilled not giving enough therapy. She also voiced she will always be by his side so she can try to get him up and moving as well. Pt's also spoke about his high potassium and concerns that our physician trying to give meds. She voiced that has been addressed and she apologized to physician. At this time pt's voiced she would like pt to stay around here and would like him to go to rehab. CHAU to update Dr. Hair. CHAU updated Dr. Hair and Dr. No. CHAU to see pt on the floor if he is admitted. CHAU let pt's know [facility] is closest acute rehab and we have several senior living facilities in the area.
--- NOTE | 2024-11-19 14:45 | PC.NURSE ---
this nurse attempted to do a blood glucose test on patiet - due to altered mental status Pt and his immediately told this nurse no- that he refuses and will not do glucose tests due to past experiences
[2024-11-19 15:12] LABS: Glucose Urine UA NEGATIVE (NEGATIVE)
--- NOTE | 2024-11-19 15:17 | SWNOTE1 ---
SW stopped in to speak with pt and in room. Pt made up to the floor. Pt had some confusion at this time. Asked and SW what hospital he was at. SW and confirmed that he was at [facility]. SW provided pt's with list from Medicare.gov and let her know that she can go online and look further in to the facilities. SW let her know that therapy may not be in today, but will be in tomorrow. SW to stop back in tomorrow morning and discuss which facility they would like SW to look in to. Pt's in agreement.
[2024-11-19 15:21] LABS: Cast Seen? SEEN #/LPF (NONE SEEN)
[2024-11-19 15:22] LABS: Crystals Seen? Seen #/HPF (None Seen)
[2024-11-19 15:23] LABS: Urine Culture Indicated YES-FRMC
--- NOTE | 2024-11-19 16:52 | PM.HP ---
HPI H&P: HPI History of Present Illness Chief complaint: Multiple Falls Pelvic Fractures Hyperkalemia Narrative: This is a 69-year-old man who came to the ER at [place] after having a fall at home. In the ER he was found to have a left superior and left inferior pubic ramus fracture. At first I think there was some confusion on the part of the patient's who thought that the patient had a hip fracture that would require surgery. There was an effort to try and get the patient to go to the [facility]. So the patient remained in the emergency room overnight. But during the daytime the ER doctor got a hold of orthopedic surgeons at the [facility] who said that the superior and inferior pubic ramus fracture is a nonoperative problem. And therefore efforts to transfer the patient to the [facility] were stopped and patient and his would really like him to get a rehab facility here in [place]. The patient has been home for about 4 days after getting out of the [facility] acute rehab facility, where he stayed for nearly 3 months after having his liver transplanted. The patient says that it was fatty liver and occasional alcohol use in the past. He never had a problem until he began having memory issues and then people looked deeper into it and found out how serious the liver was. He was taken off the transplant list for a little while when a small spot was seen on his spine and he had had a lot of tests done and an oncologist declared that this was not a cancer problem and then he was put back on the liver transplant list and then the patient says all of a sudden they got a call that there was a liver ready for him. Other than the recent liver transplant the patient's past medical history is limited to osteopenia. He and his know that he already has 2 or 3 old compression fractures in his spine. He also fell before the liver transplant and broke some ribs on the left side of his rib cage. He has had pain in that area all through the transplant process. Other than that he has some GERD. He was described as having a metabolic syndrome X in the past. He has had some borderline low blood pressures after the liver transplant. His past surgical history includes cholecystectomy, hemorrhoidectomy, EGDs, colonoscopies, paracenteses, thoracenteses. He does still have an external drain in after surgery but he and his explained that he has not really had much fluid come out of that. After the liver transplant surgery it sounds like a common bile duct was placed. In the next few days the patient was supposed to have a follow-up with the hepatology office in 3 different MRIs so his is trying to get a hold of the liver transplant center to see if these tests can be rearranged. The patient's says that he has always been lightheaded and dizzy when he stood up, even before the liver transplant took place. And that persisted and continued all through the rehab process. He also has persistent memory deficits that have persisted throughout the liver transplant and the rehab process. The patient explains that he got up late in the night to pass urine and then he was ambulating to the bathroom and then he fell and wedged himself into a corner somehow. I when I am see the patient now he mostly complains of pain on the left side of his ribs but his has to redirect him because of his short-term memory issues that he has had that pain for a long time and he intermittently gets pain in the left pelvic region. In the emergency room he was crying out with pain and during his time in the emergency room he got 1 dose of 4 mg of morphine. When he got up. To the medical floor and was transferred to a new bed he had severe pain but now he seems to have no pain at all talking to me. The patient has been on pain management after the liver transplant surgery. He has a Butrans patch in place which is dated November 12. His explains that he was on oxycodone at either 2.5 or 5 mg every 6 hours and this has been gently titrated down. She says that the liver transplant department cleared him to have Tylenol but the patient generally does not take any Tylenol feeling that it is not effective. The wants to strictly stay away from any NSAIDs, and I told her that I agree with this. He has been having problems with poor appetite after the surgery and it sounds like while he was in the acute rehab he had to have IV fluids a couple times and did have to be transfused with blood 1 time. He has difficulty getting deep and restorative sleep at nighttime. Opioid HPI Opioid Management Most Recent Pain and Opioid Data: Last Pain Scale 8 Today, 16:00 Last Pain Assessment Today, 16:00 Last MAR Pain Assessment Today, 04:15 Last ORT Total Score 0 12/07/23, 18:36 Last ORT Risk Category Low Risk 12/07/23, 18:36 Review of Systems ROS Narrative A 10 point review of systems is completed and is negative except as mentioned elsewhere in this documentation. 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) ?K75.81 - Nonalcoholic steatohepatitis (JARAMILLO) (ICD-10) ?K74.60 - Unspecified cirrhosis of liver (ICD-10) Esophageal varices ?I85.00 - Esophageal varices without bleeding (ICD-10) Hyponatremia ?E87.1 - Hypo-osmolality and hyponatremia (ICD-10) Metabolic syndrome X ?E88.810 - Metabolic syndrome (ICD-10) Incisional hernia ?K43.2 - Incisional hernia without obstruction or gangrene (ICD-10) GERD (gastroesophageal reflux disease) ?K21.9 - Gastro-esophageal reflux disease without esophagitis (ICD-10) Weight loss ?R63.4 - Abnormal weight loss (ICD-10) Barretts esophagus ?K22.70 - Tipton's esophagus without dysplasia (ICD-10) Pleural effusion, bilateral ?J90 - Pleural effusion, not elsewhere classified (ICD-10) Surgical History (Updated 11/19/24 @ 17:02 by CHANELL MOORE) H/O cataract removal with insertion of prosthetic lens ?Z98.49 - Cataract extraction status, unspecified eye (ICD-10) ?Z96.1 - Presence of intraocular lens (ICD-10) Status post thoracentesis ?Z98.890 - Other specified postprocedural states (ICD-10) S/P abdominal paracentesis ?Z98.890 - Other specified postprocedural states (ICD-10) Hx of cholecystectomy ?Z90.49 - Acquired absence of other specified parts of digestive tract (ICD-10) H/O colonoscopy ?Z98.890 - Other specified postprocedural states (ICD-10) H/O esophagogastroduodenoscopy ?Z98.890 - Other specified postprocedural states (ICD-10) Family History Mother Family history of COPD (chronic obstructive pulmonary disease) Family history of hypertension Father Family history of hypertension Social History Within the past year, how often did you have a drink containing alcohol: never Within the past year, how often did you have six or more drinks on one occasion: never Score interpretation: A score less than 4 is consistent with normal alcohol consumption. Smoking status: Former smoker Non-prescribed substance use: cannabis (any form) Non-prescribed substance use details: gummies every now and then Previous occupational history: [employer] Highest level of school completed/degree received: high school graduate Are you now , , , , never or living with a partner: In a typical week, how many times do you talk on the telephone with family, friends, or neighbors: once per week How often do you get together with friends or relatives: once per week How often do you attend restoration or roman catholic services: never Do you belong to any clubs or organizations such as restoration groups unions, fraternal or athletic groups, or school groups: no Total score: 1 Score interpretation: A score of less than or equal to 1 indicates the most socially isolated. Little interest or pleasure in doing things: not at all Feeling down, depressed, or hopeless: not at all Feel stressed/tense/nervous/anxious/difficulty sleeping: not at all Meds Home Medications and Allergies Home Medications ?Medication ?Instructions ?Recorded ?Confirmed ?Type multivitamin 1 tab PO DAILY 10/03/23 11/19/24 History acyclovir 400 mg tablet 400 mg PO Q12H 11/19/24 11/19/24 History aspirin 81 mg capsule 81 mg PO DAILY 11/19/24 11/19/24 History bumetanide 2 mg tablet 2 mg PO BID 11/19/24 11/19/24 History buprenorphine 10 mcg/hour weekly 1 patch transdermal Q7D 11/19/24 11/19/24 History transdermal patch ciprofloxacin HCl 500 mg tablet 500 mg PO BID 11/19/24 11/19/24 History famotidine 20 mg tablet 20 mg PO Q12H 11/19/24 11/19/24 History magnesium oxide 400 mg PO TID 11/19/24 11/19/24 History methocarbamol 750 mg tablet 750 mg PO BID 11/19/24 11/19/24 History midodrine 10 mg tablet 10 mg PO TIDWM 11/19/24 11/19/24 History mirtazapine 7.5 mg tablet 7.5 mg PO BEDTIME 11/19/24 11/19/24 History oxycodone 5 mg tablet 5 mg PO Q12H PRN pain 11/19/24 11/19/24 History pantoprazole 40 mg tablet,delayed 40 mg PO DAILY 11/19/24 11/19/24 History release sulfamethoxazole 800 1 tab PO .COMPLEX 11/19/24 11/19/24 History mg-trimethoprim 160 mg tablet tacrolimus 5 mg capsule, 5 mg PO Q12H 11/19/24 11/19/24 History immediate-release tamsulosin 0.4 mg capsule 0.4 mg PO BEDTIME 11/19/24 11/19/24 History trazodone 50 mg tablet 50 mg PO BEDTIME 11/19/24 11/19/24 History ursodiol 300 mg capsule 300 mg PO Q8H 11/19/24 11/19/24 History Allergies Allergy/AdvReac Type Severity Reaction Status Date / Time No Known Drug Allergies Allergy Verified 11/19/24 02:23 Exam Narrative Exam Narrative: Lying in bed while his gives the history he finishes a late lunch of cereal and a protein shake and intermittently falls asleep. When he is awake he mostly complains of pain in the anterior left rib cage but not really pain in the left pubic region at this moment. Head: Muscle wasting present. No acute trauma. Eyes: No scleral icterus. EOMI. Nose: External structures normal. Mouth: Mucosal membranes are dry. I think he is dehydrated. Neck: No jugular venous distention. Cardiac: Regular rate and rhythm. No murmurs to auscultation. Pulmonary: Diminished in the bases but I think this is related to pleural effusions and recent surgery. No crackles. No cough. Respirations calm and easy. GI: Abdomen is protuberant. It is soft. I do not appreciate a fluid wave. Bowel sounds are normal. Skin on the abdomen: Well-healed incision. He does have a drain in place but the dressing over this is clean and dry. Rib cage on the left: No bruising. No acute abrasions. Lower extremities: Absolutely no edema in ankles bilaterally. Constitutional Vital Signs, click to edit/add: Last Vital Signs Temp 97.7 F 11/19/24 16:33 Pulse 97 H 11/19/24 16:33 Resp 18 11/19/24 16:33 BP 139/80 11/19/24 16:33 Pulse Ox 82 L 11/19/24 16:33 O2 Del Method Room Air 11/19/24 16:33 O2 Flow Rate 4 11/19/24 08:12 Results Labs Labs: Short CBC 11/19/24 Range/Units 07:08 WBC 2.6 L (4.0-11.0) 10^3/uL Hgb 9.1 L (14.0-18.0) g/dL Hct 28.0 L (42.0-54.0) % Plt Count 336 (150-450) 10^3/uL BMP 11/19/24 07:08 Sodium 131 L Potassium 5.7 H Chloride 98 Carbon Dioxide 25.8 BUN 15.0 Creatinine 1.42 H Glucose 134 H Calcium 8.7 Urine 11/19/24 Range/Units 14:45 Urine Color Yellow (YELLOW) Urine Clarity Clear (CLEAR) Urine pH 7.5 (5.0-9.0) Ur Specific [place] 1.020 (1.005-1.025) Urine Protein 30 A (NEG/TRACE) mg/dL Urine Glucose (UA) Negative (NEGATIVE) mg/dL Assessment and Plan Assessment and Plan (1) Fracture of superior pubic ramus: Qualifiers: Encounter type: initial encounter Fracture type: closed Laterality: left Qualified Code(s): S32.512A - Fracture of superior rim of left pubis, initial encounter for closed fracture (2) Inferior pubic ramus fracture: Qualifiers: Encounter type: initial encounter Fracture type: closed Laterality: left Qualified Code(s): S32.592A - Other specified fracture of left pubis, initial encounter for closed fracture (3) S/P liver transplant: (4) Osteoporosis: Qualifiers: Osteoporosis type: age-related Presence of current pathological fracture: with current pathological fracture Encounter type: initial encounter Qualified Code(s): M80.00XA - Age-related osteoporosis with current pathological fracture, unspecified site, initial encounter for fracture Plan Assessment: Acute fracture of the superior pubic ramus and inferior pubic ramus on the left. Status post fall at home. Osteoporosis, with acute osteoporotic fragility fracture. Status post liver transplant for JASON about 3 months ago. General frailty and severe difficulty with activities of daily living. Hyperkalemia, which is reported be chronic, worked up by the liver transplant team and cardiology at [facility]. Chronic (over the last 90 days) opiate pain medication, with use of a Butrans patch and oxycodone for breakthrough pain before this fall and these events. Plan: Hospital admission, inpatient status. Consult to physical therapy. Consult Occupational Therapy. Toe-touch weightbearing to the left leg. Consult to dietitian. Continue the medications the way that he takes them at home. From my point of view if the hospital does not stock the Butrans patch, the tacrolimus, or the Galo the patient's home medications can be used here while he is in the hospital. I also told the that she will likely need to provide these medications to a care home facility. I did call the [facility] liver transplant center and ask for the patient's due diligence coordinator to call me and gave her my cell phone number. Here at 5:15 on Monday evening I have not gotten a call back. If the patient needs any routine labs such as tacrolimus this might be possible to be ordered here and I am happy to order liver function test in the morning while he is here. Sleeve compression devices/intermittent pneumatic compression pumps for DVT prophylaxis.
[2024-11-19 17:37] LABS: Anion Gap 12.7; Blood Urea Nitrogen 18.0 mg/dL (7.0-18.0); Calcium 8.7 mg/dL (8.5-10.1); Carbon Dioxide 25.8 mmol/L (21.0-32.0); Chloride 98 mmol/L (98-107); Estimated GFR (African America >60 (>=60 mL/min/1.73m^2); Estimated GFR (Non-African Ame 53 (>=60 mL/min/1.73m^2); Glucose 165 mg/dL (74-106); Magnesium 1.9 mg/dL (1.8-2.4); Potassium 5.5 mmol/L (3.5-5.1); Sodium 131 mmol/L (136-145)
[2024-11-19] MEDS: OXYCODONE HCL 5 MG TABLET PO (18:55)
[2024-11-19] MEDS: DEXTROSE 5 %-0.45 % SOD CHLORD 500 ML 150 ML IV (21:24)
[2024-11-19] MEDS: FAMOTIDINE 20 MG TABLET PO (21:28)
[2024-11-19] MEDS: URSODIOL 300 MG CAPSULE PO (21:28)
[2024-11-19] MEDS: MAGNESIUM OXIDE 400 MG TABLET PO (21:28)
[2024-11-19] MEDS: MIRTAZAPINE 15 MG TABLET 7.5 MG PO (21:28)
[2024-11-19] MEDS: ACYCLOVIR 200 MG CAPSULE 400 MG PO (21:28)
[2024-11-19] MEDS: TAMSULOSIN HCL 0.4 MG CAPSULE PO (21:29)
[2024-11-19] MEDS: CIPROFLOXACIN HCL 500 MG TABLET PO (21:29)
[2024-11-19] MEDS: TRAZODONE HCL 50 MG TABLET PO (21:29)
--- NOTE | 2024-11-19 21:29 | PC.NURSE ---
incontinent of soft loose stool
[2024-11-20] VITALS (21 sets, daily range): BP systolic 106–151; BP diastolic 70–93; PULSE 70–100; TEMP 36.5–36.9; O2SAT 87–97; BMI 10.0; BMI 21.1
[2024-11-20] MEDS: MORPHINE SULFATE 4 MG/ML VIAL IV (02:14)
--- NOTE | 2024-11-20 02:14 | PC.NURSE ---
cHANGED DRESSINGS X2 TO SKIN TEARS ON LEFT ARM.
[2024-11-20] MEDS: MAGNESIUM OXIDE 400 MG TABLET PO ×3 (05:44→21:27)
[2024-11-20] MEDS: PANTOPRAZOLE SODIUM 40 MG TABLET.DR PO (05:44)
[2024-11-20] MEDS: URSODIOL 300 MG CAPSULE PO ×3 (05:44→21:27)
[2024-11-20 06:17] LABS: Hematocrit 28.4 % (42.0-54.0); Hemoglobin 9.0 g/dL (14.0-18.0); Immature Granulocytes Abs Auto 0.51 10^3/uL (0.00-0.03); Immature Granulocytes Pct Auto 16.9 % (0.0-0.5); Lymphocytes Absolute Auto 0.2 10^3/uL (1.2-3.8); Mean Corpuscular HGB Conc 31.7 g/dL (29.9-35.2); Mean Corpuscular Hemoglobin 30.8 pg (25.9-34.0); Mean Corpuscular Volume 97.3 fL (80.0-94.0); Platelet Count 324 10^3/uL (150-450); Red Blood Count 2.92 10^6/uL (4.70-6.10); White Blood Count 3.0 10^3/uL (4.0-11.0)
[2024-11-20 06:31] LABS: Anion Gap 11.5; Blood Urea Nitrogen 16.0 mg/dL (7.0-18.0); Calcium 8.6 mg/dL (8.5-10.1); Carbon Dioxide 26.7 mmol/L (21.0-32.0); Chloride 97 mmol/L (98-107); Estimated GFR (African America >60 (>=60 mL/min/1.73m^2); Estimated GFR (Non-African Ame >60 (>=60 mL/min/1.73m^2); Glucose 130 mg/dL (74-106); Potassium 5.2 mmol/L (3.5-5.1); Sodium 130 mmol/L (136-145)
[2024-11-20 06:42] LABS: Alanine Aminotransferase 24 U/L (16-63); Albumin Globulin Ratio 0.5; Albumin Level 2.0 g/dL (3.4-5.0); Alkaline Phosphatase 146 U/L (46-116); Aspartate Amino Transferase 26 U/L (15-37); Globulin 4.1 g/dL; Total Protein 6.1 g/dL (6.4-8.2)
--- NOTE | 2024-11-20 07:00 | ECG_ITS ---
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 Measurements Intervals [place] Rate: 83 P: 37 IA: 142 QRS: 47 QRSD: 88 T: 22 QT: 367 QTc: 434 Interpretive Statements SINUS RHYTHM Normal ECG Compared to ECG 11/19/2024 07:02:36 Sinus arrhythmia no longer present Electronically Signed On 11-20-2024 7:01:38 EDT by KATHERINE GALEAS M.D.
[2024-11-20] MEDS: BUPRENORPHINE 1 EACH TRANSDERMA (09:30)
--- NOTE | 2024-11-20 09:30 | CM.NOTE ---
Rounds made with Dr. Alvarenga, PT and OT evaluated pt with recommendations. wishes pt to return to acute rehab. Dr. No spoke with the transplant team and they would also like referral sent for acute rehab in [place]. Update given to CHAU from Dr. No. Referral has already been sent. CHAU will also send updates to transplant team per request of Dr. No. No discharge today. Will continue pain management and check ammonia level.
--- NOTE | 2024-11-20 09:33 | SWNOTE1 ---
SW stopped in and spoke with pt/pt's . She voiced he is more out of it today than yesterday. Pt does admit he is having some confusion and voiced he woke thinking it was a different time/day. Pt's voiced she spoke with pt's liver specialist and they do recommend that he returns to [facility] Acute rehab in [place]. Pt's would chose [facility] as second choice. Pt's already called with phone number for acute rehab in [place], she provided SW with phone number. SW to call and get fax number and get referral sent. CHAU student called and got fax number from [facility] re[facility] in [place].
--- NOTE | 2024-11-20 09:37 | SWNOTE1 ---
SW updated case management.
--- NOTE | 2024-11-20 09:44 | SWNOTE1 ---
Referral faxed to acute rehab of [facility]. Referral included physician notes, case management referral, PT/OT, diagnostic imaging.
[2024-11-20] MEDS: FAMOTIDINE 20 MG TABLET PO ×2 (09:45→21:27)
[2024-11-20] MEDS: SULFAMETHOXAZOLE/TRIMETHOPRIM 800-160 MG TABLET 1 TAB PO (09:45)
[2024-11-20] MEDS: ACYCLOVIR 200 MG CAPSULE 400 MG PO ×2 (09:45→21:28)
[2024-11-20] MEDS: ASPIRIN 81 MG TAB.CHEW PO (09:45)
[2024-11-20] MEDS: CIPROFLOXACIN HCL 500 MG TABLET PO (09:45)
[2024-11-20] MEDS: OXYCODONE HCL 5 MG TABLET PO ×3 (09:45→20:37)
[2024-11-20] MEDS: MULTIVITAMIN TABLET 1 TAB PO (09:45)
--- NOTE | 2024-11-20 11:27 | SWNOTE1 ---
CHAU spoke to case management and she had another phone number for SW to fax updates to, it is the liver specialists. Dr. No spoke with them and they would like his updates sent and also voiced to physician that they want him to go to [facility] in [place]. CHAU student faxed updates to [facility] in [place].
--- NOTE | 2024-11-20 12:08 | SWNOTE1 ---
CHAU called [facility] and spoke to nurse, she sent me to Adriano in admissions. His phone went to voicemail, CHAU left voicemail, waiting for call back.
--- NOTE | 2024-11-20 12:39 | P.PN_ITS ---
Progress Note: Subjective Subjective Interval history: Seen and evaluated this morning, just prior to entering the room the bedside RN did approach me and said there is some degree of confusion and the was quite concerned upon entering the room the patient is alert, he is oriented, he is able to answer questions. is present at bedside. The admitting history and physical was confirmed from yesterday, he is still having some pain though he seems to complain mostly of his left-sided rib pain and only of his new fracture pain in his pubic rami when he is moving. He had just finished with PT and OT so he is quite exhausted. According to the , this morning he was hallucinating he thought he was calling people on his phone and he did not realize he was in the hospital. For me at around 9:30 AM he is alert and oriented by 3. I did have a discussion that I will be checking his ammonia just for completeness sake given his recent liver transplant though I do not feel it will be elevated given his overall presentation, would like to minimize pain medications in hopes to improve his confusion though he certainly is here with a new fracture and I do not want to hold them either. and patient were agreeable with attempting to minimize pain medications. He does endorse having decreased oral intake lately, he does says he has no appetite and food does not seem appetizing currently. Exam Narrative Exam Narrative: General: Awake and alert, no acute distress HEENT: Normocephalic, atraumatic, no scleral icterus noted Lungs: Clear to auscultation bilaterally Cardiac: Regular rate and rhythm, no murmurs appreciated Chest: Left chest wall tenderness directly over his lateral ribs GI: Soft, nontender, regular bowel sounds. Extremities: Decreased movement in his left lower extremity secondary to pain Neuro: Cranial nerves II through XII intact, no focal deficits noted Skin: No rashes or lesions, no signs of jaundice Constitutional Vital Signs, click to edit/add: Last Vital Signs Temp 97.7 F 11/20/24 12:25 Pulse 91 H 11/20/24 12:25 Resp 24 H 11/20/24 12:25 BP 111/77 11/20/24 12:25 Pulse Ox 94 L 11/20/24 12:25 O2 Del Method Nasal Cannula 11/20/24 12:25 O2 Flow Rate 2 11/20/24 12:25 Progress Note: Objective Labs Labs: Short CBC 11/20/24 Range/Units 05:34 WBC 3.0 L (4.0-11.0) 10^3/uL Hgb 9.0 L (14.0-18.0) g/dL Hct 28.4 L (42.0-54.0) % Plt Count 324 (150-450) 10^3/uL BMP 11/19/24 11/20/24 17:19 05:34 Sodium 131 L 130 L Potassium 5.5 H 5.2 H Chloride 98 97 L Carbon Dioxide 25.8 26.7 BUN 18.0 16.0 Creatinine 1.34 H 1.18 Glucose 165 H 130 H Calcium 8.7 8.6 Liver Function 11/20/24 Range/Units 05:34 Total Bilirubin 0.3 (0.2-1.0) mg/dL Direct Bilirubin 0.2 (0.0-0.2) mg/dL AST 26 (15-37) U/L ALT 24 (16-63) U/L Alkaline Phosphatase 146 H (46-116) U/L Albumin 2.0 L (3.4-5.0) g/dL Urine 11/19/24 Range/Units 14:45 Urine Color Yellow (YELLOW) Urine Clarity Clear (CLEAR) Urine pH 7.5 (5.0-9.0) Ur Specific [place] 1.020 (1.005-1.025) Urine Protein 30 A (NEG/TRACE) mg/dL Urine Glucose (UA) Negative (NEGATIVE) mg/dL Progress Note: A&P Assessment and Plan (1) Fracture of superior pubic ramus: Assessment and Plan: ? Continue supportive care, nonop management ? PT OT ? He currently has oxycodone 5 mg every 4 hours and morphine 4 mg every 4 hour as needed for pain, we will keep these on his order sets however given his degree of confusion this morning would like to minimize if able to. ? Currently reaching out to [facility] inpatient rehab to see if he will qualify for inpatient rehab upon discharge Qualifiers: Encounter type: initial encounter Fracture type: closed Laterality: left Qualified Code(s): S32.512A - Fracture of superior rim of left pubis, initial encounter for closed fracture (2) Inferior pubic ramus fracture: Assessment and Plan: See above, send plan Qualifiers: Encounter type: initial encounter Fracture type: closed Laterality: left Qualified Code(s): S32.592A - Other specified fracture of left pubis, initial encounter for closed fracture (3) S/P liver transplant: Assessment and Plan: ? His AST and ALT were normal on admission, his alk phos was at 146 which does appear to be very close to his baseline (4) Osteoporosis: Qualifiers: Osteoporosis type: age-related Presence of current pathological fracture: with current pathological fracture Encounter type: initial encounter Qualified Code(s): M80.00XA - Age-related osteoporosis with current pathological fracture, unspecified site, initial encounter for fracture (5) Acute kidney injury: Assessment and Plan: ? Prerenal in nature, his creatinine was 1.42 yesterday morning, today is 1.18, continue IV fluids. Patient does endorse decreased oral intake, his is present at bedside and confirms this Plan ? DVT prophylaxis addressed ? Regular diet ? Full code
[2024-11-20 13:15] LABS: Ammonia 21 umol/L (11-32)
--- NOTE | 2024-11-20 13:47 | SWNOTE1 ---
SW received a call from [facility] in [place], they physician has accepted and they will start precert. SW to let pt and family know.
--- NOTE | 2024-11-20 14:01 | NUTR.NU ---
Diet consult completed w/pt and . Encouraged pt to eat something every 1-2 hours, even if just a few bites, to stimulate appetite. Offered Ensure; however, states pt does not accept supplements well. He agreed to try PRO shake; ordered from [employer]. Provided handout which shows major food groups and portion sizes to let pt know he does not have to eat a large amount of food to improve his nutritional status. Nutrition assessment to follow.
--- NOTE | 2024-11-20 14:44 | SWNOTE1 ---
Important Message from Medicare discussed with patient. Pt verbalized understanding and signed paper. Copy placed in chart and original given to pt.
[2024-11-20] MEDS: MIRTAZAPINE 15 MG TABLET 7.5 MG PO (21:27)
[2024-11-20] MEDS: TRAZODONE HCL 50 MG TABLET PO (21:27)
[2024-11-20] MEDS: TAMSULOSIN HCL 0.4 MG CAPSULE PO (21:27)
[2024-11-21] VITALS (20 sets, daily range): BP systolic 130–149; BP diastolic 83–94; PULSE 80–118; TEMP 36.6–36.9; O2SAT 83–98
--- NOTE | 2024-11-21 02:17 | PC.NURSE ---
Patient called out stating a man told me to leave, this isn't a hospital. My clothes are over there . Patient attempted to be reoriented. Accused medical technical writer of lying and would not put oxygen back on because I am not going to be drugged Tablet Making Machine Operator attempted to educate patient but patient stated I don't believe you Gave patient is cell phone, call light within reach.
--- NOTE | 2024-11-21 03:00 | PC.NURSE ---
Patient removed his IV. Agitated and refused new one.
--- NOTE | 2024-11-21 03:12 | PC.NURSE ---
Patient believes his urinal is a rabbit that jumped up on his bedside table. Accuses staff of drugging his water and accuses staff of changing the clocks. Attempts to redirect patient failed. Will notify
--- NOTE | 2024-11-21 05:59 | PC.NURSE ---
Attempted to change dressings to skin tears on left forearm. Patient refused stating it's just another way your going to drug me . Education provided, patient still refused. Call light within reach. Offered a beverage. No other needs at this time
--- NOTE | 2024-11-21 06:00 | PC.NURSE ---
Patient refused morning labs.
[2024-11-21] MEDS: HALOPERIDOL LACTATE 5 MG/ML VIAL IM (08:25)
--- NOTE | 2024-11-21 08:31 | PC.NURSE ---
Patient is very altered with his mental status this morning. Patient claims everyone in this cooperation is poisoning him. Patient did allow telegraphic typewriter operator chief to obtain vitals, oxygen level is only at 83% but patient refuses to put oxygen on claiming it is poison. Counterintelligence Analyst offered to bring in a tank at the bedside so that he could see it was oxygen and patient still refused at this time. Counterintelligence Analyst spent time with the patient attempting to reorient with no success. Physician was made aware by discussing in person. Physician placed orders for medication and medication was given to patient.
--- NOTE | 2024-11-21 08:37 | SWNOTE1 ---
Pt had increased confusion/agitation this morning. SW faxed updated nursing notes, vitals, and wide area network engineer notes to acute rehab and liver specialist.
--- NOTE | 2024-11-21 10:05 | CM.NOTE ---
Rounds made with Dr. Alvarenga, spoke with pt and regarding plan of care. Dr. Alvarenga will reach out to liver transplant team regarding plan of care for pt
[2024-11-21] MEDS: ZIPRASIDONE MESYLATE 20 MG VIAL IM (10:33)
[2024-11-21] MEDS: WATER FOR INJECTION, STERILE 20 ML VIAL INJ (10:34)
--- NOTE | 2024-11-21 12:47 | PM.PN ---
Progress Note: Subjective Subjective Interval history: Seen and evaluated this morning, the patient is quite confused overall. Reported from nursing staff, he pulled out his IVs overnight, he hardly slept at all. On evaluation he initially says he is in [place] at the [facility], he seems to think that we are attempting to poison him with medication, he is even reviewing towards oxygen despite his oxygen saturation being in the mid to high 80s. The is present at bedside. He does not know who he is, he knows who his is, he is able to answer some second to your questions and he can tell me that a rock will sink to the bottom of a bucket of water if you drop it and there however he just continues to believe that he is in [place] and we are attempted to hurt him. The mentions lots of hallucinations earlier this morning. Exam Narrative Exam Narrative: General: Alert and oriented by 2, person and time. Agitated. HEENT: Normocephalic, atraumatic, no scleral icterus noted Lungs: Deferred due to agitation Cardiac: Deferred due to agitation GI: Deferred due to mental status Extremities: He appears moving all his extremities in all planes of motion Neuro: No slurred speech noted, appears similar to yesterday. No changes. Skin: No rashes or lesions, no signs of jaundice Constitutional Vital Signs, click to edit/add: Last Vital Signs Temp 97.9 F 11/21/24 08:00 Pulse 102 H 11/21/24 12:07 Resp 16 11/21/24 08:00 BP 147/88 H 11/21/24 08:00 Pulse Ox 98 11/21/24 12:07 O2 Del Method Room Air 11/21/24 11:41 O2 Flow Rate 2 11/20/24 23:57 Progress Note: A&P Assessment and Plan (1) Fracture of superior pubic ramus: Assessment and Plan: ? Continue supportive care, not management ? PT OT ? Continue pain regimen as ordered, he is acutely confused and currently refusing all medications ? May benefit from inpatient rehab when he is medically ready for discharge Qualifiers: Encounter type: initial encounter Fracture type: closed Laterality: left Qualified Code(s): S32.512A - Fracture of superior rim of left pubis, initial encounter for closed fracture (2) Inferior pubic ramus fracture: Assessment and Plan: See above, same plan Qualifiers: Encounter type: initial encounter Fracture type: closed Laterality: left Qualified Code(s): S32.592A - Other specified fracture of left pubis, initial encounter for closed fracture (3) S/P liver transplant: Assessment and Plan: He is refusing his antirejection medications this morning secondary to acute delirium (4) Osteoporosis: Qualifiers: Osteoporosis type: age-related Presence of current pathological fracture: with current pathological fracture Encounter type: initial encounter Qualified Code(s): M80.00XA - Age-related osteoporosis with current pathological fracture, unspecified site, initial encounter for fracture (5) Acute kidney injury: Assessment and Plan: His kidney function has normalized from admission, we do not have labs today secondary to his delirium and he is refusing. (6) Acute delirium: Assessment and Plan: Patient is acutely confused, especially when compared to yesterday. We do not have the labs for today though yesterday his labs did not show any evidence of metabolic encephalopathy or causes for it. His ammonia was checked and normal. This is likely in the setting of his urinary tract infection. See plan for UTI. [facility] The has been updating her throughout his hospitalization and given the acute change in mental status morning, he did refuse his antirejection meds. I did speak with my the document control coordinator myself and there is a discussion of possibly transferring the patient back to [facility] inpatient status as he has no putting himself and his liver at risk by refusing his medications. He received 5 mg IM Haldol this morning which he did not respond to, 2 hours later he had 20 mg of Geodon which did make him sleepy though he was still awake enough to refuse care. Will plan to repeat another dose of 20 mg of Geodon here shortly so we can initiate workup, start IV for antibiotics and hopefully get ahead of his delirium. (7) UTI (urinary tract infection): Assessment and Plan: His UA on admission appeared contaminated and the joint decision was made to not treat it as he was not having any signs or symptoms of infection at that point in time. However today he is experiencing worsening confusion from time of admission, we do not have any updated blood work this morning. Given there is evidence of bacteria on his initial presenting UA, I will plan to start ceftriaxone 2 g every 24 hours. See plan and acute delirium If he continues to be difficult to sedate and were unable to get IV access, I will defer blood cultures and give ceftriaxone IM to empirically treat this UTI. Plan ? DVT prophylaxis addressed ? Regular diet ? Full code
--- NOTE | 2024-11-21 12:59 | XR_ITS ---
The [address] [address] Patient Name: LOYD BLANDON MRN: [id number] date: 1955 Sex: M Assigned Patient Location: [place] Current Patient Location: [place] Accession/Order Number: [id number] Exam Date: 11/21/2024 18:02 Report Date: 11/21/2024 18:08 At the request of: PAUL SNOWDEN DO Procedure: XR chest 1V PA CHEST: CLINICAL HISTORY: hypoxia COMPARISON: 11/19/2024 Patient is mildly rotated challenge evaluation. A large cardiomediastinal silhouette. Perihilar and bibasilar opacities most confluent involving the left hemithorax. Suspect small right-sided and at least moderate left-sided effusions. No pneumothorax XR/XR chest 1V IMPRESSION: Bibasilar and perihilar opacities may suggest CHF and effusions. Findings are greatest left. Impression dictated by: Tre Rivera M.D. 11/21/2024 6:08 PM Dictation Location: [place] [address] Electronically authenticated by: [id number] Y Date: 11/21/2024 18:08
--- NOTE | 2024-11-21 13:41 | SWNOTE1 ---
SW spoke with case management and physician will speak to physician at [facility].
--- NOTE | 2024-11-21 13:46 | CM.NOTE ---
Updated regarding Dr. Alvarenga speaking with Liver transplant team regarding plan of care and just awaiting call back. IV established at this time to continue treatment.
[2024-11-21 14:18] LABS: Ammonia 21 umol/L (11-32)
[2024-11-21 14:25] LABS: Alanine Aminotransferase 28 U/L (16-63); Albumin Globulin Ratio 0.5; Albumin Level 1.9 g/dL (3.4-5.0); Alkaline Phosphatase 163 U/L (46-116); Anion Gap 11.7; Aspartate Amino Transferase 35 U/L (15-37); Blood Urea Nitrogen 19.0 mg/dL (7.0-18.0); Calcium 8.7 mg/dL (8.5-10.1); Carbon Dioxide 25.4 mmol/L (21.0-32.0); Chloride 99 mmol/L (98-107); Estimated GFR (African America 55 (>=60 mL/min/1.73m^2); Estimated GFR (Non-African Ame 45 (>=60 mL/min/1.73m^2); Globulin 4.2 g/dL; Glucose 191 mg/dL (74-106); Lactate/Lactic Acid 1.4 mmol/L (0.4-2.0); Magnesium 2.0 mg/dL (1.8-2.4); Potassium 5.1 mmol/L (3.5-5.1); Sodium 131 mmol/L (136-145); Total Protein 6.1 g/dL (6.4-8.2)
[2024-11-21 14:33] LABS: Hematocrit 27.3 % (42.0-54.0); Hemoglobin 9.0 g/dL (14.0-18.0); Mean Corpuscular HGB Conc 33.0 g/dL (29.9-35.2); Mean Corpuscular Hemoglobin 31.4 pg (25.9-34.0); Mean Corpuscular Volume 95.1 fL (80.0-94.0); Platelet Count 304 10^3/uL (150-450); Red Blood Count 2.87 10^6/uL (4.70-6.10); White Blood Count 4.2 10^3/uL (4.0-11.0)
[2024-11-21 15:05] LABS: Band Neutrophils Absolute 0.4 10^3/uL (0.0-0.3); Lymphocytes Absolute Manual 0.42 10^3/uL (1.20-3.80); Lymphocytes Percent Manual 10.0 % (20.5-60.0); Segmented Neut Absolute Manual 2.47 10^3/uL (1.4-6.5); Segmented Neutrophils % Manual 59.0 (43.0-75.0)
[2024-11-21 15:06] LABS: Basophils Abs Manual 0.08 10^3/uL (0.00-0.10); Basophils Percent Manual 2.0 % (0.2-2.0); Eosinophils Absolute Manual 0.00 10^3/uL (0.00-0.70); Eosinophils Percent Manual 0.0 % (0.9-7.0); Monocytes Absolute Manual 0.79 10^3/uL (0.30-0.80); Monocytes Percent Manual 19.0 % (1.7-12.0)
--- NOTE | 2024-11-21 15:10 | CM.NOTE ---
Dr. Alvarenga spoke with transplant team, pt will transfer back to [place] with accepting physician Dr. Marques. Renee will fax face sheet, RN updated and .
[2024-11-21] MEDS: ACYCLOVIR 200 MG CAPSULE 400 MG PO ×2 (16:24→21:30)
[2024-11-21] MEDS: OXYCODONE HCL 5 MG TABLET PO ×2 (16:25→21:37)
[2024-11-21] MEDS: QUETIAPINE FUMARATE 25 MG TABLET 50 MG PO (21:30)
[2024-11-21] MEDS: FAMOTIDINE 20 MG TABLET PO (21:30)
[2024-11-21] MEDS: MAGNESIUM OXIDE 400 MG TABLET PO (21:30)
[2024-11-21] MEDS: URSODIOL 300 MG CAPSULE PO (21:30)
[2024-11-21] MEDS: TRAZODONE HCL 50 MG TABLET PO (21:30)
[2024-11-21] MEDS: TAMSULOSIN HCL 0.4 MG CAPSULE PO (21:30)
[2024-11-21] MEDS: MIRTAZAPINE 15 MG TABLET 7.5 MG PO (21:30)
--- NOTE | 2024-11-21 22:07 | PC.NURSE ---
Patient calm and cooperative. Placed Oxygen on patient as he had it off. Allowed check writer to give night medications
--- NOTE | 2024-11-21 23:31 | PC.NURSE ---
[facility]ior picked up patient for [facility] room G101 bed 13. Report called into nurse accepting patient.
--- NOTE | 2024-11-22 08:51 | SWNOTE1 ---
Pt was transferred to [facility] last evening. SW did receive a call from [facility] acute rehab this morning to check on pt, SW advised he was transferred to [facility].
[2024-11-22 10:30] LABS: A. calcoaceticus-baumannii Cpx NOT DETECTED (NOT DETECTE); Bacteroides fragilis NOT DETECTED (NOT DETECTE); Candida auris NOT DETECTED (NOT DETECTE); Candida glabrata NOT DETECTED (NOT DETECTE); Enterobacterales NOT DETECTED (NOT DETECTE); Enterococcus faecalis NOT DETECTED (NOT DETECTE); Enterococcus faecium NOT DETECTED (NOT DETECTE); Klebsiella aerogenes NOT DETECTED (NOT DETECTE); Klebsiella pneumoniae group NOT DETECTED (NOT DETECTE); Proteus spp. NOT DETECTED (NOT DETECTE); Salmonella spp. NOT DETECTED (NOT DETECTE); Serratia marcescens NOT DETECTED (NOT DETECTE); Staphylococcus lugdunensis NOT DETECTED (NOT DETECTE); Stenotrophomonas maltophilia NOT DETECTED (NOT DETECTE); Streptococcus pyogenes NOT DETECTED (NOT DETECTE); Streptococcus spp. NOT DETECTED (NOT DETECTE)
[2024-11-22 14:20] LABS: Source Blood; Staphylococcus epidermidis DETECTED (NOT DETECTE); Staphylococcus spp. DETECTED (NOT DETECTE); mecA/C NOT DETECTED (NOT DETECTE)
--- NOTE | 2024-11-22 14:40 | P.DS_ITS ---
DS: Providers Provider Date of admission: 11/19/24 14:56 Primary care physician: SANJAY ROBLEDO Consults: 11/19/24 Consult to Dietitian Routine Reason for consultation: poor appetite 11/19/24 15:32 Occupational Therapy Eval and Treat Routine Reason for consultation: pubic ramus fracture Has provider been notified: No Physical Therapy Eval and Treat Routine Reason for consultation: pubic ramus fracture Has provider been notified: No Discharging clinician: PAUL SNOWDEN DS: Diagnosis Discharge Diagnosis (1) Fracture of superior pubic ramus: Qualifiers: Encounter type: initial encounter Fracture type: closed Laterality: left Qualified Code(s): S32.512A - Fracture of superior rim of left pubis, initial encounter for closed fracture (2) Inferior pubic ramus fracture: Qualifiers: Encounter type: initial encounter Fracture type: closed Laterality: left Qualified Code(s): S32.592A - Other specified fracture of left pubis, initial encounter for closed fracture (3) S/P liver transplant: (4) Osteoporosis: Qualifiers: Osteoporosis type: age-related Presence of current pathological fracture: with current pathological fracture Encounter type: initial encounter Qualified Code(s): M80.00XA - Age-related osteoporosis with current pathological fracture, unspecified site, initial encounter for fracture (5) Acute kidney injury: (6) Acute delirium: (7) UTI (urinary tract infection): DS: Summary Hospital Course Hospital Course: Mr Stewart is a 69-year-old male who was admitted the hospital the very photographer finish of November 19 with a chief complaint of confusion after he fell at home, he was found to have a left superior and inferior pubic ramus fracture. He was subsequent mated to hospital for PT OT and pain control. He has a recent liver transplant which is well-documented and described in the history and physical. The first day of hospitalization his confusion seemed to improve however the following day his confusion became much worse. Upon entering the building I was told that he essentially refused labs, he was telling his to leave the room, he thought he was already at [facility]. He received 2 doses of IV IM Haldol, 20 mg of Geodon and the patient was quite drowsy after this. We were able to obtain blood work, blood cultures were drawn on November 21. The and myself were in communication with the [facility] transplant center. Initially the plan was to treat him conservatively here and then plan to transfer to [facility] acute inpatient rehab for recovery of the ramus fracture however given his persistent delirium that was not improving, the decision was made to transfer him as an inpatient. He was accepted under the transplant service the afternoon of November 21. Once the patient became drowsy, we were able to obtain labs, CBC, CMP, ammonia, blood cultures and chest x-ray. His infectious workup was benign thus far, nonetheless he was started on ceftriaxone due to concerns for urinary tract infection however given he is immunocompromise secondary to his transplant medications he is at high risk for infection. He was transferred to [facility] the evening of November 21 for further evaluation and treatment. The was notified and updated throughout this entire process. Time Spent with Patient Time attestation: Total time spent providing and/or coordinating discharge services: Exam Narrative Exam Narrative: Please see progress note from November 21, I was not physically in the hospital when the patient was transferred and thus a discharge exam was not performed. Constitutional Vital Signs, click to edit/add: Last Vital Signs Temp 98 F 11/21/24 23:15 Pulse 118 H 11/21/24 23:15 Resp 20 11/21/24 23:15 BP 149/94 H 11/21/24 23:15 Pulse Ox 88 L 11/21/24 23:15 O2 Del Method Room Air 11/21/24 23:15 O2 Flow Rate 2 11/21/24 22:20 DS: Data Data Completed and Pending Labs on day of discharge: Labs from last 24 hours 11/21/24 11/21/24 13:47 13:40 WBC 4.2 RBC 2.87 L Hgb 9.0 L Hct 27.3 L MCV 95.1 H MCH 31.4 MCHC 33.0 RDW 19.5 H Plt Count 304 MPV 9.8 Seg Neuts % (Manual) 59.0 Band Neutrophils % 10.0 H Lymphocytes % (Manual) 10.0 L Monocytes % (Manual) 19.0 H Eosinophils % (Manual) 0.0 L Basophils % (Manual) 2.0 Neutrophils # (Manual) 2.47 Band Neutrophils # 0.4 H Lymphocytes # (Manual) 0.42 L Monocytes # (Manual) 0.79 Eosinophils # (Manual) 0.00 Basophils # (Manual) 0.08 Specimen Source Blood A.calcoaceticus-baumannii cmplx PCR Not detected Bacteroides fragilis Not detected Jordana albicans (PCR) Not detected Jordana auris (PCR) Not detected C. glabrata (PCR) Not detected C. krusei (PCR) Not detected C. parapsilosis (PCR) Not detected C. tropicalis (PCR) Not detected C. neoform/gattii (PCR) Not detected Enterobacterales (PCR) Not detected E. cloacae complex PCR Not detected Enterococc faecalis PCR Not detected Enterococc faecium PCR Not detected E. coli (PCR) Not detected H. influenzae (PCR) Not detected Klebsiella aerogenes (PCR) Not detected Klebsiella oxytoca PCR Not detected K. pneumoniae group (PCR) Not detected List. monocytogenes PCR Not detected N. meningitidis (PCR) Not detected Proteus spp. (copies/mL) Not detected Salmonella spp. (PCR) Not detected Serratia marcescens PCR Not detected Staphylococcus sp PCR Detected A* Staph aureus (PCR) Not detected mecA/C & MREJ Resist Gene Not applicable mecA/C-Methicil Resis Gene Not detected mcr-1 Colistin Res Gene PCR Not applicable Staph epidermidis (PCR) Detected A* Staph lugdunensis (TEM-PCR) Not detected S. maltophilia (PCR) Not detected Streptococcus sp PCR Not detected Strep agalactiae (PCR) Not detected Strep pneumoniae (PCR) Not detected S. pyogenes (PCR) Not detected P. aeruginosa (PCR) Not detected Cassius/B-Vanco Res Genes Not applicable blaIMP Car res Gene PCR Not applicable KPC (blaKPC) Detect PCR Not applicable NDM (blaNDM) Detect PCR Not applicable OXA-48 Carbapenem Resis Gene (PCR) Not applicable blaVIM Car Res Gene PCR Not applicable CTX-M ESBL (PCR) Not applicable Preliminary micro results at discharge 11/19/24 14:45 Urine Culture - Preliminary Urine,Clean Catch Pending - Specimen sent to [facility] Discharge Plan Discharge Disposition: [facility] Condition: Fair Assessment: Patient confused. Vitals taken Discharge Date/Time: 11/21/24 23:34 Discharge Location: [facility] Discharge location: [facility] bed 13
--- OUTSIDE RECORDS SUMMARY | 2025-01-14 20:00 | XMS_ITS | Clinical Summary ---
Author Organization Unknown Care Team Providers Care Geospatial Extractor Analysis Name Role Phone VENKAT OLIVAS, SANJAY Unavailable Unavailable MARYBEL GERMANN, ROHIT Unavailable Unavailable WILBUR BLUNT, YUSRA Unavailable Unavailable B[employer] PROP[employer] EQUIPMENT CLERK, JESSIE Unavailable Unavailable EWA OT, ESVIN Unavailable Unavailable STEPHANIE PT, FRANKLIN Unavailable Unavailable SHAHRIAR RN, ZACKERY Unavailable Unavailable Payers Payer Name Policy Type Policy Number Effective Date Expira tion Date [employer] MEDICARE ADVANTAGE MYNEX[place]/CARELON [id number] MEDICARE - [place] - PDGM [id number] Problems Condition Name Condition Details Condition Category Status Onset Date Resolution Date Last Treatment Date Treating Clinician Comments CRITICAL ILLNESS MYOPATHY Active 10-30 00:00: 00 Allergies, Adverse Reactions, Alerts Allergy Name Allergy Type Status Severity Reaction(s) Onset Date Inactive Date Treating Clinician Comments NKA Propensity to adverse reactions Active 2024-11 11:24:1 2 Vital Signs Vital Name Observation Time Observation Value Commen ts Temperature 2024-11-17 11:33:00.000 98.6 [degF] BMI (%) 2024-11-17 11:33:00.000 20 kg/m2 Height 2024-11-17 11:33:00.000 69 [in_us] Pulse 2024-11-17 11:33:00.000 90 /min O2 Saturation (%) 2024-11-17 11:33:00.000 93 % Respirations 2024-11-17 11:33:00.000 18 /min Weight (lbs) 2024-11-17 11:33:00.000 141 [lb_av] Systolic Blood Pressure 2024-11-17 11:33:00.000 134 mm [Hg] Diastolic Blood Pressure 2024-11-17 11:33:00.000 76 mm [Hg] Plan of Treatment Planned Activity Planned Date Details Comments Future Scheduled Test SKILLED NU RSE TO EVALUATE PATIENT, IDENTIFY PRIMARY AND CO-MORBID CONDITIONS CODED PER CODING GUIDELINES, AND DEVELOP PATIENT SPECIFIC PLAN OF CARE THAT INCLUDES PATIENT GOAL FOR HOME HEALTH. [code = SKILLED NURSE TO EVALUATE PATIENT, IDENTIFY PRIMARY AND CO-MORBID CONDITIONS CODED PER CODING GUIDELINES, AND DEVELOP PATIENT SPECIFIC PLAN OF CARE THAT INCLUDES PATIENT GOAL FOR HOME HEALTH.] Future Scheduled Test SKILLED NU RSE TO REVIEW PATIENT MEDICATIONS (PRESCRIPTION/OTC). INSTRUCT PATIENT/CAREGIVER ON ALL MEDICATIONS INCLUDING PURPOSE, WHEN TO TAKE, IMPORTANCE OF MEDICATION ADHERENCE, MONITORING OF EFFECTIVENESS, ADVERSE DRUG REACTIONS, POSSIBLE SIDE EFFECTS, AND WHEN TO NOTIFY AGENCY OR PHYSICIAN/PROVIDER OF ANY CONCERNS. [code = SKILLED NURSE TO REVIEW PATIENT MEDICATIONS (PRESCRIPTION/OTC). INSTRUCT PATIENT/CAREGIVER ON ALL MEDICATIONS INCLUDING PURPOSE, WHEN TO TAKE, IMPORTANCE OF MEDICATION ADHERENCE, MONITORING OF EFFECTIVENESS, ADVERSE DRUG REACTIONS, POSSIBLE SIDE EFFECTS, AND WHEN TO NOTIFY AGENCY OR PHYSICIAN/PROVIDER OF ANY CONCERNS.] Future Scheduled Test PATIENT THIBODE[place] S A RISK OF HOSPITALIZATION AND ED USE. SKILLED NURSE TO ESTABLISH SUPPORT MEASURES TO MINIMIZE RISK OF HOSPITALIZATION AND ED USE, AND INSTRUCT PATIENT/CAREGIVER ON METHODS TO REDUCE AVOIDABLE HOSPITALIZATION AND ED USE. [code = PATIENT HAS A RISK OF HOSPITALIZATION AND ED USE. SKILLED NURSE TO ESTABLISH SUPPORT MEASURES TO MINIMIZE RISK OF HOSPITALIZATION AND ED USE, AND INSTRUCT PATIENT/CAREGIVER ON METHODS TO REDUCE AVOIDABLE HOSPITALIZATION AND ED USE.] Future Scheduled Test SKILLED NU RSE TO PROVIDE INSTRUCTION TO PATIENT/CAREGIVER RELATED TO DISCHARGE PLANNING. [code = SKILLED NURSE TO PROVIDE INSTRUCTION TO PATIENT/CAREGIVER RELATED TO DISCHARGE PLANNING.] Future Scheduled Test SKILLED NU RSE TO PERFORM ENVIRONMENTAL SAFETY RISK ASSESSMENT AND FALL RISK ASSESSMENT AND PROVIDE INSTRUCTION TO IMPLEMENT ENVIRONMENTAL SAFETY AND FALL PREVENTION STRATEGIES THROUGHOUT THE CERTIFICATION PERIOD. SKILLED NURSE WILL MAINTAIN SITUATIONAL AWARENESS AND WILL NOTIFY CLINICAL SHIRRING MACHINE OPERATOR AND PHYSICIAN/PROVIDER WITH ANY CHANGE IN CONDITION. [code = SKILLED NURSE TO PERFORM ENVIRONMENTAL SAFETY RISK ASSESSMENT AND FALL RISK ASSESSMENT AND PROVIDE INSTRUCTION TO IMPLEMENT ENVIRONMENTAL SAFETY AND FALL PREVENTION STRATEGIES THROUGHOUT THE CERTIFICATION PERIOD. SKILLED NURSE WILL MAINTAIN SITUATIONAL AWARENESS AND WILL NOTIFY CLINICAL SHIRRING MACHINE OPERATOR AND PHYSICIAN/PROVIDER WITH ANY CHANGE IN CONDITION.] Future Scheduled Test SKILLED NU RSE FOR OBSERVATION AND ASSESSMENT OF PATIENTS PAIN LEVEL AND EFFECTIVENESS OF PAIN MANAGEMENT REGIMEN. SKILLED NURSE TO INSTRUCT PATIENT/CAREGIVER REGARDING PHARMACOLOGIC AND NON-PHARMACOLOGIC PAIN CONTROL MEASURES. SKILLED NURSE TO REPORT TO PHYSICIAN IF PAIN LEVEL IS OUTSIDE OF ESTABLISHED PARAMETERS. [code = SKILLED NURSE FOR OBSERVATION AND ASSESSMENT OF PATIENTS PAIN LEVEL AND EFFECTIVENESS OF PAIN MANAGEMENT REGIMEN. SKILLED NURSE TO INSTRUCT PATIENT/CAREGIVER REGARDING PHARMACOLOGIC AND NON-PHARMACOLOGIC PAIN CONTROL MEASURES. SKILLED NURSE TO REPORT TO PHYSICIAN IF PAIN LEVEL IS OUTSIDE OF ESTABLISHED PARAMETERS.] Future Scheduled Test SKILLED NU RSE TO ASSESS PATIENT'S SKIN INTEGRITY AND INSTRUCT PATIENT/CAREGIVER ON MEASURES TO PREVENT PRESSURE ULCERS. [code = SKILLED NURSE TO ASSESS PATIENT'S SKIN INTEGRITY AND INSTRUCT PATIENT/CAREGIVER ON MEASURES TO PREVENT PRESSURE ULCERS.] Future Scheduled Test SKILLED NU RSE FOR O/A, TEACHING AND MANAGEMENT OF DANIEL BULB BILLIARY DRAIN TO RUQ SKILLED NURSE TO PROVIDE/INSTRUCT ON DRAIN CARE. SKILLED NURSE TO INSTRUCT PATIENT/CAREGIVER ON EMPTYING DRAIN DAILY AND AND TO DOCUMENT COLOR AND AMOUNT OF DRAINAGE. SKILLED NURSE TO EDUCATE PATIENT/CAREGIVER TO MONITOR FOR SIGNS AND SYMPTOMS OF INFECTION TO REPORT. [code = SKILLED NURSE FOR O/A, TEACHING AND MANAGEMENT OF DANIEL BULB BILLIARY DRAIN TO RUQ SKILLED NURSE TO PROVIDE/INSTRUCT ON DRAIN CARE. SKILLED NURSE TO INSTRUCT PATIENT/CAREGIVER ON EMPTYING DRAIN DAILY AND AND TO DOCUMENT COLOR AND AMOUNT OF DRAINAGE. SKILLED NURSE TO EDUCATE PATIENT/CAREGIVER TO MONITOR FOR SIGNS AND SYMPTOMS OF INFECTION TO REPORT.] Future Scheduled Test SKILLED NU RSE TO PROVIDE TEACHING ON SIGNS AND SYMPTOMS AND MANAGEMENT OF HYPERTENSION. [code = SKILLED NURSE TO PROVIDE TEACHING ON SIGNS AND SYMPTOMS AND MANAGEMENT OF HYPERTENSION.] Future Scheduled Test SKILLED NU RSE FOR O/A AND SKILLED TEACHING RELATED TO SIGNS AND SYMPTOMS AND MANAGEMENT OF ANEMIA. [code = SKILLED NURSE FOR O/A AND SKILLED TEACHING RELATED TO SIGNS AND SYMPTOMS AND MANAGEMENT OF ANEMIA.] Future Scheduled Test SKILLED NU RSE FOR O/A, TEACHING RELATED TO LIVER DISEASE FOR EARLY IDENTIFICATION OF EXACERBATION OF DISEASE PROCESS. [code = SKILLED NURSE FOR O/A, TEACHING RELATED TO LIVER DISEASE FOR EARLY IDENTIFICATION OF EXACERBATION OF DISEASE PROCESS.] Future Scheduled Test SKILLED NU RSE TO INSTRUCT PATIENT/CAREGIVER ON S/S OF NEUROPATHY AND METHODS TO MANAGE. [code = SKILLED NURSE TO INSTRUCT PATIENT/CAREGIVER ON S/S OF NEUROPATHY AND METHODS TO MANAGE.] Future Scheduled Test SKILLED NU RSE FOR O/A OF SELF-CARE DEFICITS AND TO PROVIDE TEACHING RELATED TO SAFE PROVISION OF ADLS. [code = SKILLED NURSE FOR O/A OF SELF-CARE DEFICITS AND TO PROVIDE TEACHING RELATED TO SAFE PROVISION OF ADLS.] Future Scheduled Test SKILLED NU RSE FOR O/A AND SKILLED TEACHING RELATED TO SIGNS AND SYMPTOMS OF INFECTION AND INFECTION CONTROL MEASURES. [code = SKILLED NURSE FOR O/A AND SKILLED TEACHING RELATED TO SIGNS AND SYMPTOMS OF INFECTION AND INFECTION CONTROL MEASURES.] Future Scheduled Test PHYSICAL T HERAPIST TO EVALUATE PATIENT FOR WEAKNESS, IMPAIRED GAIT, HIGH RISK FOR FALLS, POOR ENDURANCE [code = PHYSICAL THERAPIST TO EVALUATE PATIENT FOR WEAKNESS, IMPAIRED GAIT, HIGH RISK FOR FALLS, POOR ENDURANCE] Future Scheduled Test OCCUPATION AL THERAPIST TO EVALUATE PATIENT FOR IMPAIRED ABILITY TO PERFORM ADLS, NEED FOR STRENGTHENING [code = OCCUPATIONAL THERAPIST TO EVALUATE PATIENT FOR IMPAIRED ABILITY TO PERFORM ADLS, NEED FOR STRENGTHENING] Goal Patient Goal - S RAL[facility] OUT OF THR HOSPITAL AND GET STRONGER Goal Provider Goal - A PLAN OF CARE WILL BE ESTABLISHED THAT MEETS PATIENT'S USP NEEDS AND INCLUDES PATIENT GOAL FOR HOME HEALTH. Goal Provider Goal - PATIENT/CAREGIVER WILL VERBALIZE UNDERSTANDING OF EDUCATION PROVIDED ON MEDICATIONS BY THE END OF THE CERTIFICATION PERIOD. Goal Provider Goal - PATIENT WILL HAVE SUPPORT MEASURES ESTABLISHED TO PREVENT HOSPITALIZATION AND ED USE AND PATIENT/CAREGIVER WILL VERBALIZE/DEMONSTRATE METHODS TO REDUCE AVOIDABLE HOSPITALIZATION AND ED USE BY END OF EPISODE. Goal Provider Goal - PATIENT/CAREGIVER WILL VERBALIZE UNDERSTANDING OF DISCHARGE PLANNING INSTRUCTIONS BY DATE OF DISCHARGE. Goal Provider Goal - PATIENT/CAREGIVER WILL VERBALIZE/DEMONSTRATE EFFECTIVE ENVIRONMENTAL SAFETY AND FALL PREVENTION STRATEGIES, WILL REMAIN SAFE IN THE COMMUNITY, AND WILL BE FREE OF DANGER TO SELF AND OTHERS THROUGHOUT THE CERTIFICATION PERIOD. Goal Provider Goal - PATIENT/CAREGIVER WILL DEMONSTRATE UNDERSTANDING OF PHARMACOLOGIC AND NONPHARMACOLOGIC PAIN CONTROL MEASURES AND PATIENT WILL HAVE IMPROVEMENT IN PAIN INTERFERING WITH ACTIVITY EVIDENCED BY PAIN AT A LEVEL THAT IS ACCEPTABLE TO THE PATIENT AND PAIN LEVEL WITHIN ESTABLISHED PARAMETERS BY END OF CERTIFICATION PERIOD. Goal Provider Goal - PATIENT/CAREGIVER WILL VERBALIZE UNDERSTANDING OF PRESSURE ULCER PREVENTION BY END OF THE EPISODE. Goal Provider Goal - PATIENT/CAREGIVER WILL VERBALIZE/DEMONSTRATE MANAGEMENT OF DRAIN CARE. INCLUDING S/S INFECTION AND/OR COMPLICATIONS TO REPORT BY THE END OF THE CERTIFICATION PERIOD. Goal Provider Goal - PATIENT/CAREGIVER WILL VERBALIZE SIGNS AND SYMPTOMS OF HYPERTENSION AND WILL BE ABLE TO DEMONSTRATE ABILITY TO MANAGE EXACERBATION BY END OF THE EPISODE. Goal Provider Goal - PATIENT/CARGIVER WILL VERBALIZE UNDERSTANDING OF ANEMIA INCLUDING SIGNS AND SYMPTOMS, MANAGEMENT OF COMPLICATIONS, AND PRESCRIBED TREATMENT REGIMEN BY END OF EPISODE. Goal Provider Goal - EXACERBATIONS OF LIVER DISEASE WILL BE PROMPTLY IDENTIFIED AND INTERVENTIONS IMPLEMENTED TO MINIZMIZE RISKS TO PATIENT BY END OF THE EPISODE. Goal Provider Goal - PATIENT/CAREGIVER WILL VERBALIZE S/S OF NEUROPATHY AND METHODS TO MANAGE BY END OF CERTIFICATION PERIOD. Goal Provider Goal - PATIENT/CAREGIVER WILL VERBALIZE/DEMONSTRATE UNDERSTANDING OF SAFE PROVISION OF ADLS BY THE END OF THE CERTIFICATION PERIOD. Goal Provider Goal - PATIENT/CAREGIVER WILL VERBALIZE/DEMONSTRATE UNDERSTANDING OF S/S OF INFECTION AND INFECTION CONTROL MEASURES. SIGNS AND SYMPTOMS OF INFECTION WILL BE IDENTIFIED AND PHYSICIAN NOTIFIED FOR PROMPT INTERVENTION THROUGHOUT THE CERTIFICATION PERIOD. Goal Provider Goal - A PHYSICAL THERAPY EVALUATION TO BE COMPLETED WITH RECOMMENDATIONS AND/OR WRITTEN PLAN OF TREATMENT ESTABLISHED FOR PHYSICIANS SIGNATURE. Goal Provider Goal - OCCUPATIONAL THERAPY EVALUATION TO BE COMPLETED WITH RECOMMENDATIONS AND WRITTEN PLAN OF TREATMENT ESTABLISHED FOR THE PHYSICIANS SIGNATURE. Progress Notes Progress Notes <paragraph>[Visit Date: 2024 by ZACKERY BESS RN]:</paragraph><paragraph>TYPE OF VISIT (SOC/MATEO/RCT): SOC VISIT DATE: 11.17.24 PAYOR SOURCE: SRI LORD PRIMARY DIAGNOSIS/FOCUS OF CARE: POST LIVER TRANSPLANT CO-MORBIDITIES THAT MAY IMPACT POC: GERD, PORTAL HTN, ENCEPHALOPATHY, HLD HYPERCHOLESTEREMIA CHF/COPD? NO TELEHEALTH __YES _Z_NO __IF NO, INDICATE REASON __IF NO, DOES THE PATIENT HAVE THEIR OWN MONITORING EQUIPMENT (I.E., SCALE, PULSE OX)? DISCIPLINES/FREQUENCY NEEDED: _X_SN: 2W1 1W3 _X_PT: _X_OT: __ST __MSW: __HHA: __OTHER: CLINICAL REPORT (E.G., INJECTIONS, CATH CHANGES, IV THERAPY, WOUND CARE): DATE OF NEXT VISIT: RAPID SUBSEQUENT VISIT NEEDED (SOC ONLY):PATIENT WAS HOSPITALIZED BACK IN AUGUST FOR ASCITES HEPATIC ENCEPHALOPATHY AND POSSIBLE LIVER CANCER WITH METASTASES TO SPINE. AFTER MULTIPLE ROUNDS OF TESTING IT WAS FOUND THAT PATIENT ONLY HAD 1 SPOT ON HIS LIVER THAT HAD COME BACK POSITIVE FOR CANCER CELLS AND DID NOT HAVE METASTASES TO HIS SPINE. PATIENT HAS MULTIPLE COMPRESSION FRACTURES IN HIS SPINE. ON SEPTEMBER 09 PATIENT HAD A LIVER TRANSPLANT AND HAD AN UNREMARKABLE RECOVERY AND WAS DISCHARGED TO THE REHAB FLOOR ON SEPTEMBER 29. ON OCTOBER 07 THE PATIENT RETURNED TO THE EMERGENCY ROOM FROM REHAB FOR ABDOMINAL PAIN AND WAS DIAGNOSED WITH AN ILEUS A RIGHT PLEURAL EFFUSION AND PARA INFLUENZA. PATIENT THEN HAD A PARACENTESIS AND THORACENTESIS. PATIENT ALSO HAD A RIGHT CHEST TUBE PLACED DURING THAT TIME FOR A PERIOD PNEUMOTHORAX. ON OCTOBER 23 PATIENT GOT AN INFECTION TO HIS BILIARY DRAIN THAT WAS PLACED AND WAS PLACED ON IV ANTIBIOTICS FOR 3 WEEKS AND KEPT IN ICU. ON OCTOBER 30 PATIENT DISCHARGED BACK TO ACUTE REHAB FOR UNTIL NOVEMBER 15 WHEN HE DISCHARGED HOME FROM THE HOSPITAL. PATIENT HAS A CURRENT BILIARY DRAIN TO THE RIGHT UPPER QUADRANT WITH A NONREMOVABLE DRESSING THAT GETS CHANGED BY THE TRANSPLANT TEAM AT HIS NEXT FOLLOW UP APPOINTMENT. PATIENT DENIES ANY PAIN TO THE SITE, THE DANIEL DRAIN HAS MINIMAL FLUID AND THE PATIENT'S STATES HE IS GETTING VERY LITTLE OUTPUT FROM THIS. PATIENT HAS BEEN AFEBRILE, TAKING IMMUNOSUPPRESSANT MEDICATION DIRECTED. PATIENT'S HAS A VERY GOOD SYSTEM SETUP FOR MEDICATION ADMINISTRATION. REVIEWED ALL MEDICATIONS WITH PATIENT'S , SHE DENIES ANY QUESTIONS OR CONCERNS. PATIENT HAS INTERMITTENT CONFUSION AND DOES NOT RECALL EVENTS OF THE PAST FEW MONTHS VERY WELL, PATIENT HAD HOSPITAL INDUCED PSYCHOSIS DURING MOST OF HIS DAY AND HER HALLUCINATORY EVENTS AND SINCE HE HAS BEEN HOME HE HAS BEEN VERY FORGETFUL AND GETS ANGRY AT TIMES BECAUSE OF HIS POOR MEMORY. PATIENT DOES HAVE CURRENT MINIMAL ASCITES IN HIS ABDOMEN BUT REVIEWING THE CHART AND REPORTS FROM THE PATIENT'S THERE IS NOT ENOUGH ASCITES FOR ANYTHING TO BE DONE AND WILL CONTINUE TO BE MONITORED BY TRANSPLANT TEAM. LAST CT SCAN PATIENT'S LIVER IS FUNCTIONING NORMALLY, PATIENT DOES NOT HAVE ANY JAUNDICE AND DENIES ANY PAIN. SURGICAL INCISION FROM THE TRANSPLANT IS HEALED PATIENT DENIES MAKE COMPLICATIONS WITH THAT. THE ONLY PAIN THE PATIENT ENDORSES THIS IS FROM HIS SPINE FROM THE MULTIPLE COMPRESSION FRACTURES HE HAS. PATIENT IS ABLE TO AMBULATE USING ASSISTIVE DEVICES VERY UNSTEADY WITH POOR BALANCE AND DIZZINESS AT TIMES. PATIENT HAS MULTIPLE STAIRS IN HIS HOME AND HE HAS TO NAVIGATE, PATIENT'S STATED THAT HE WAS ABLE TO DO A FEW STEPS BEFORE LEAVING REHAB WHERE PATIENT REQUIRES MODERATE AMOUNT OF ASSISTANCE FROM HIS FOR ALL ACTIVITY AND HAS BEEN SLEEPING DOWNSTAIRS BECAUSE HE IS UNABLE TO COMPLETELY NAVIGATE HIS STEPS TO HIS BEDROOM. PATIENT DOES HAVE A BATHROOM ON THE MAIN FLOOR OF THE HOME WHEN SHE IS ABLE TO USE INSTEAD OF WALKING UP AND DOWN THE STAIRS. PATIENT DENIES ANY FALLS OR INJURIES SINCE HE HAS BEEN HOME, IS VERY ANXIOUS ABOUT HIS RECOVERY AND DOES NOT WANT TO HAVE TO GO BACK TO THE HOSPITAL. EDUCATED PATIENT AND PATIENT'S ON SIGNS AND SYMPTOMS OF INFECTION AND THE IMPORTANCE OF CATCHING INFECTIONS EARLY PATIENT IS ON ANTIREJECTION MEDICATIONS AND IMMUNOSUPPRESSANTS. PATIENT'S STATES THEY HAVE GOTTEN EDUCATION EVERY STEP OF THE WAY ON PREVENTING INFECTIONS HANDWASHING MASKING AND STAYING AWAY FROM PEOPLE THAT ARE ILL. PATIENT AND PATIENT'S ARE AGREEABLE WITH PLAN OF CARE DENY FURTHER NEEDS AT THIS TIME. WELCOME VIDEO VIEWED ADMISSION PAPERWORK AND CONSENTS SIGNED, FOLDER REVIEWED HOSPITAL RISK: HIGH VIRTUAL CALLS APPROPRIATE FOR PATIENT: NO SPECIALTY PROGRAM: NA CONFIRM CARE TYPE ADDED FOR SPECIALTY PROGRAMS, ACOS AND/OR VALUE-BASED PROGRAMS: NA POINTCARE VISIT ALERT NEEDED (SAFETY CONCERNS, DOG, USE BACK DOOR)? NO PHYSICIAN/PROVIDER NAME: DR SANJAY ROBLEDO NEXT PHYSICIAN/PROVIDER APPOINTMENT: 8.[address] ROBLEDO WILL FOLLOW FOR HOMECARE AND SIGN POC FOR SN PT OT</paragraph> Encounters Start Date/Time End Date/Time Encounter Type Admission Type Attending [facility] Care Department Encounter ID Discharge Date Discharge Status Discharge Condition Discharge Reason Percent Goals Met 2024-11-17 00:00:00 2025-01-15 00:00:00 Outpatient NEW ADMISSION ZACKERY BESS [facility] [id number]
== END 2024-11-21 23:34 | disposition short-term general hospital (02) | DRG 543 ==
LOC: ER 13:53 → MS 15:02
PROVIDERS: Admitting Provider Hospitalist; Emergency Provider Emergency Medicine; PCP Internal Medicine; Visit Provider Internal Medicine
DX: M80.0AXA Age-related osteoporosis with current pathological fracture, other site, initial encounter for fracture (principal); D84.9 Immunodeficiency, unspecified; N17.9 Acute kidney failure, unspecified; Z94.4 Liver transplant status; N39.0 Urinary tract infection, site not specified; F05 Delirium due to known physiological condition; Z87.891 Personal history of nicotine dependence; K21.9 Gastro-esophageal reflux disease without esophagitis; E11.9 Type 2 diabetes mellitus without complications; E88.810 Metabolic syndrome; K22.70 Barrett's esophagus without dysplasia; R29.6 Repeated falls; M85.80 Other specified disorders of bone density and structure, unspecified site; R63.0 Anorexia; Z79.621 Long term (current) use of calcineurin inhibitor; Z79.2 Long term (current) use of antibiotics; R54 Age-related physical debility; K75.81 Nonalcoholic steatohepatitis (NASH); E87.5 Hyperkalemia; Z79.891 Long term (current) use of opiate analgesic; Z82.49 Family history of ischemic heart disease and other diseases of the circulatory system; S22.42XD Multiple fractures of ribs, left side, subsequent encounter for fracture with routine healing; W19.XXXD Unspecified fall, subsequent encounter; W18.30XA Fall on same level, unspecified, initial encounter
CPT/HCPCS: 36415; 71045; 73502; 73700; 80048; 80053; 80076; 81001; 82140; 83605; 83735; 84132; 84484; 85007; 85025; 85027; 87040; 87077; 87086; 87150; 87186; 93005; 94761; 96374; 97163; 97165; 97535; 99285; J0696; J1630; J2270; J3486

== ENCOUNTER 2025-03-06 13:54 | Outpatient (OUT) | payer MEDICARE, SELFPAY ==
--- OUTSIDE RECORDS SUMMARY | 2025-03-06 14:08 | XMS_ITS | CCD ---
Author Organization [facility] Care Team Providers Care [employer] Supervisor Name Role Phone MD Lex Carroll Attending Provider JUDITH Robledo Primary Care Provider Rick Ortega Unavailable JUDITH Robledo Primary Care Provider TALA Ortega Attending Provider Sanjay Robledo MD Unavailable Sanjay Robledo MD Primary Care Provider MD Minh Griffith Attending Provider [phone] DO Brayan Alves Attending Provider JUDITH Robledo Primary Care Provider TALA Ortega Attending Provider MD Minh Griffith Attending Provider DO Brayan Alves Attending Provider SANJAY ROBLEDO Primary Care Physician Brayan Alves H Referring Unavailable Jourdan ARRIAZA Attending Unavailable JUDITH Robledo Primary Care Provider MD Ward Ferrer Attending Provider [phone] Maggy [facility], DO Shepard Attending Provider [facility], DO Shepard Attending Provider [facility], DO Shepard Attending Provider JUDITH Robledo Primary Care Provider [phone] MD Ward Ferrer Attending Provider MD Autumn Farnsworth V Attending Provider [phone] Elizabeth OLIVAS, Irena Unavailable Jade Arora MD Unavailable [phone] Venkat WONG MD, Daniel B Primary Care Provider [phone] Irena Johnson MD Attending Provider [phone] Sanjay Robledo II Primary Care Provider SANJAY ROBLEDO Attending Unavailable XUAN ESPINO Attending Unavailable ISAIAS, WARD Attending Unavailable XUAN ESPINO Referring Unavailable BENEDICT, WARD Referring Unavailable BENEDICT, WARD Referring Unavailable LYNDSEY PATEL Attending Unavailable ISAIAS, WARD Referring Unavailable JENN LAMAS Attending Unavailable SANJAY ROBLEDO Attending Unavailable XUAN ESPINO Attending Unavailable IRA WALKER Attending Unavailable DEVAUGHN SMITH Referring Unavailable JOHNSON, IRENA Attending Unavailable JASON MILES Referring Unavailable MILESJASON Referring Unavailable RESEARCH, GENERIC Referring Unavailable JOHNSON, IRENA Referring Unavailable JOHNSON, IRENA Admitting Unavailable JOHNSON, IRENA Attending Unavailable JOHNSON, IRENA Referring Unavailable JOHNSON, IRENA Referring Unavailable PILLOJESUS Admitting Unavailable JOHNSON, IRENA Referring Unavailable MONZON, ROSA Attending Unavailable JEAN JAQUEZ Attending Unavailable JOHNSON, IRENA Attending Unavailable MILAGRO SHEEHAN Referring Unavailable JL KENT Attending Unavailable SAFI, ASTON Referring Unavailable JOHNSON, IRENA Attending Unavailable Carina Ziegler RN Unavailable Unavailable Amos OLIVAS, Jonas Unavailable [phone] Albin Suarez DO Attending Provider Samsa - TBH, Devyn Admitting Unavailable Samsa - TBPadma, Devyn Attending Unavailable Sanjay Robledo Primary Care Unavailable Johnson, Irena Attending Unavailable Sanjay Robleod Primary Care Unavailable Johnson, Irena Admitting Unavailable Johnson, Irena Attending Unavailable Sanjay Robledo Primary Care Unavailable Johnson, Irena Admitting Unavailable Ward Ferrer Admitting Unavailable Ward Ferrer Attending Unavailable Sanjay Robledo Primary Care Unavailable Autumn Farnsworth V Admitting Unavailable Autumn Farnsworth V Attending Unavailable Albin Suarez Admitting Unavailable Albin Suarez Attending Unavailable ROBLEDO II, SANJAY B Primary Care Unavailable ROBLEDO II, SANJAY B Primary Care Unavailable ROBLEDO II, SANJAY B Primary Care Unavailable ROBLEDO II, SANJAY B Primary Care Unavailable JANE CORREIA Referring UnavailJENN Castaneda Attending Unavailable ROBLEDO II, SANJAY B Primary Care Unavailable JUNNA, DMITRI Referring Unavailable JUNNA, DMITRI Attending Unavailable ROBLEDO II, SANJAY B Primary Care Unavailable DERRICK HARRIS Attending Unavailable JUNNA, DMITRI Referring Unavailable GUILLERMO JENKINS Admitting Unavailable ROBLEDO II, SANJAY B Primary Care Unavailable GAY OSORIO Attending Unavailable ROBLEDO II, SANJAY B Primary Care Unavailable TROY FRANZ Admitting Unavailable TROY FRANZ Attending Unavailable TAIMEH, ZIAD Admitting Unavailable TAIMEHNEISHAAD Attending Unavailable JUNNA, DMITRI Referring Unavailable JUNNA, DMITRI Referring Unavailable JUNNA, DMITRI Referring Unavailable JUNNA, DMITRI Referring Unavailable DAVID CRUZ Admitting Unavailable DAVID CRUZ Attending Unavailable ROBLEDO II, SANJAY B Primary Care Unavailable CALI IRVING Consulting Unavailable SARA-IVELISSE CABRERA Attending Unavail able JUNNA, DMITRI Referring Unavailable SELF Referring Unavailable ROBLEDO II, SANJAY B Primary Care Unavailable JENNIE NICHOLSON Attending Unavailable JUNNA, DMITRI Referring Unavailable SELF Referring Unavailable SELF Referring Unavailable HAL WEIR Attending Unavaila ble ROBLEDO II, SANJAY B Primary Care Unavailable ROHAN LOTT Attending Unav ailable ROBLEDO II, SANJAY B Primary Care Unavailable JUNNA, DMITRI Referring Unavailable JUNNA, DMITRI Referring Unavailable JUNNA, DMITRI Referring Unavailable ROBLEDO II, SANJAY B Primary Care Unavailable CHERI GUIDO Referring Unavailable ROBLEDO II, SANJAY B Primary Care Unavailable Raymond Penaloza Admitting Unavailable Raymond Penaloza Attending Unavailable ROBLEDO II, SANJAY B Primary Care Unavailable CANDIDA DIAS Referring Unava ilable GERONIMO COCHRAN Admitting Unavailable BURTON QUEZADA Attending Unavailable ROBLEDO II, SANJAY B Primary Care Unavailable HANSA LOPEZ Attending Unavailable PAUL SNOWDEN Referring Unavailable BELIA MEDINA Admitting Unavailable ROBLEDO II, SANJAY B Primary Care Unavailable MORALES GREGG Admitting Unavailable MORALES GREGG Attending Unavailable ROBLEDO II, SANJAY B Primary Care Unavailable JANE CORREIA Attending UnavailNICK Cash Referring Unavailable TRAV, TAWANNADELL Referring Unavailable JUNNA, DMITRI Referring Unavailable BRISA BULL Attending Unavailable JUNNA, DMITRI Referring Unavailable ANTHONYDAVID Attending Unavailable ROBLEDO II, SANJAY B Primary Care Unavailable CALI IRVING Consulting Unavailable ANTHONY, DAVID Admitting Unavailable ROBLEDO II, SANJAY B Primary Care Unavailable JUNNA, DMITRI Referring Unavailable ROBLEDO II, SANJAY B Primary Care Unavailable BHAVYA ALDANA Attending Unavailable BARAK BENNATI Referring Unavailable ROBLEDO II, SANJAY B Primary Care Unavailable JUNNA, DMITRI Referring Unavailable ROBLEDO II, SANJAY B Primary Care Unavailable JUNNA, DMITRI Referring Unavailable ROBLEDO II, SANJAY B Primary Care Unavailable JUNNA, DMITRI Referring Unavailable JADE ARORA Attending Unavailable JUNNA, DMITRI Referring Unavailable SELF Referring Unavailable SELF Referring Unavailable LOW, SEE-SYDNI Admitting Unavailable LOW, SEE-SYDNI Attending Unavailable BRISA SEALS Attending Unavailable JUNNA, DMITRI Referring Unavailable ROBLEDO II, SANJAY B Primary Care Unavailable ROHAN LOTT Attending Unav ailable ROBLEDO II, SANJAY B Primary Care Unavailable GADAMANDA CHERI Referring Unavailable JUNNA, DMITRI Attending Unavailable JUNNA, DMITRI Referring Unavailable ANTHONYJWAN Attending Unavailable ROBLEDO II, SANJAY B Primary Care Unavailable PADMINI MERCER Consulting Unavailable ANTHONY, DAVID Admitting Unavailable JUNNA, DMITRI Referring Unavailable ROBLEDO II, SANJAY B Primary Care Unavailable JUNNA, DMITRI Referring Unavailable ROBLEDO II, SANJAY B Primary Care Unavailable MORALES GREGG Admitting Unavailable MORALES GREGG Attending Unavailable JUNNA, DMITRI Referring Unavailable ROBLEDO II, SANJAY B Primary Care Unavailable JUNNA, DMITRI Referring Unavailable Allergies Allergy ClassificationReported Allergen(s)Allergy TypeDate of OnsetReaction(s) Facility (12 sources)Sulfamethoxazole / Trimethoprim; Translations: [SULFAMETHOXAZOLE-TRIMETHOPRIM]Drug Bbmldnf71-28-4122[facility] Work Phone: (3 sources)Dexmedetomidine; Translations: [DEXMEDETOMIDINE]Drug Allergy 88-70-5003EqgadlrxvvcXpojuglmf [facility] Work Phone: Medications Current Medications MedicationDrug Class(es)DatesSig (Normalized)Sig (Original)acyclovir 400 mg oral tablet (20 sources)Herpesvirus Nucleoside Analog DNA Polymerase Inhibitor, Herpes Simplex Virus Nucleoside Analog DNA Polymerase Inhibitor, Herpes Zoster Virus Nucleoside Analog DNA Polymerase InhibitorStart: 09-18-2024 End: 81-65-0331hidj 1 tablet by mouth in the morningacyclovir (Zovirax) 400 MG tablet Take 400 mg by mouth in the morning and 400 mg in the evening. 11/12/2024 Activeaspirin 81 mg chewable tablet (20 sources)Platelet Aggregation Inhibitor, Nonsteroidal Anti-inflammatory Drug Start: 10-31-2024 End: 62-65-8067djeoonq 81 MG chewable tablet Chew 81 mg in the morning. 11/12/2024 Active End: 84-87-6462frss 1 tablet by mouth once dailyaspirin, enteric coated (ASPIRIN, ENTERIC COATED) 81 mg EC tablet Take 81 mg by mouth once daily. DiscontinuedB Complex Vitamins (vitamin B complex) tablet (20 sources)Start: 50-71-8528nuce 1 tablet by mouth once dailyB Complex Vitamins (vitamin B complex) tablet Indications: Iron deficiency anemia, unspecified irondeficiency anemia type Take 1 tablet by mouth Daily 100 tablet 3 08/21/2024 Activebenzonatate 100 mg oral capsule (20 sources)Non-narcotic AntitussiveStart: 04-61-5582owbj 1 capsule by mouth every eight hours as neededbenzonatate (Tessalon) 100 MG capsule Take 100 mg by mouth every 8 (eight) hours if needed 10/30/2024 ActiveStart: 75-31-0591rnip 1 capsule by mouth every eight hours as neededbenzonatate (TESSALON PERLE) 100 mg capsule Take 1 capsule by mouth three times a day as needed forcough. 10/30/2024 Suspendedbumetanide 2 mg oral tablet (20 sources)Loop DiureticStart: 07-25-2024 End: 87-00-9141qvpx 1 tablet by mouth twice hr buprenorphine 0.01 mg/hr transdermal system (13 sources)Partial Opioid AgonistStart: 11-12-2024 End: 86-65-1369bwakj 1 dose transdermal route every weekbuprenorphine (Butrans) 10 MCG/HR Place 1 patch on the skin once a week 11/12/2024 12/13/2024 Active calcium carbonate 1250 mg / cholecalciferol 125 unt oral tablet (20 sources)Vitamin DStart: 57-05-4914bupr 1 tablet by mouth once dailyCalcium Carb-Cholecalciferol (Calcium 500 + D) 500-3.125 MG-MCG tablet Take 1 tablet by mouth 1 (one) time each day 06/02/2023 Activetake 2 tablets by mouth once daily CALCIUM CARB/VIT D3/MINERALS (CALCIUM CARBONATE-VIT D3-MIN) 1,200 mgcalcium - 1,000 unit chew Take 2tablets by mouth once daily. Suspendedtake 2 tablets by mouth once dailyCALCIUM CARB/VIT D3/MINERALS (CALCIUM CARBONATE-VIT D3-MIN) 1,200 mgcalcium -1,000 unit chew Take 2tablets by mouth once daily. Active dicyclomine hydrochloride 20 mg oral tablet (8 sources)AnticholinergicStart: 11-10-2022 End: 56-53-4749ggrj 1 tablet by mouth every eight hoursDicyclomine HCl 20 MG 1 tablet Orally Three times a day for 90 days Mar, Activefamotidine 20 mg oral tablet (20 sources)Histamine-2 Receptor AntagonistStart: 09-29-2024 End: 70-77-7624fyoa 1 tablet by mouth in the morningfamotidine (Pepcid) 20 MG tablet Take 20 mg by mouth in the morning and 20 mg in the evening. 11/12/2024 ActiveStart: 04-12-2023 End: 32-20-5910dgfu 1 tablet by mouth twice dailyFamotidine 40 mg tablet Discontinued 40 MG PO Twice daily 60 30 July 05, 2023 9:29am June 19, 2024 1:11pm FreeTextSi tablet Orally Twice a day; Note: Source Status: Taking; Refills: 5; Qty: 60 Tablet; Provider: Shannon Cabrera MStart: 11-10-2022 End: 63-28-7393kwzo 1 tablet by mouth at bedtimefamotidine (Pepcid) 20 MG tablet Take 20 mg by mouth at bedtime. 0 11/10/2022 05/18/2023 Discontinuedfurosemide 40 mg oral tablet (20 sources)Loop DiureticStart: 48-47-3020nvzm 1 tablet by mouth in the morning furosemide (Lasix) 40 MG tablet Take 40 mg by mouth in the morning. 10/31/2024 ActiveStart: 30-45-3383oxsx 1 tablet by mouth once dailyfurosemide (LASIX) 20 mg tablet Take 1 tablet by mouth once daily. 09/30/2024 SuspendedStart: 03-01-2024 End: 45-87-8299uhcd 3 tablets by mouth twice dailyfurosemide (LASIX) 20 mg tablet Take 60 mg by mouth two times a day. 03/01/2024 05/02/2024 Discontinued Start: 16-89-3150wwjd 3 tablets by mouth once dailyfurosemide (LASIX) 20 mg tablet Take 60 mg by mouth once daily. 03/01/2024 ActiveStart: 04-12-2023 End: 70-14-1539agbp 1 tablet by mouth once daily in the morningFurosemide 40 mg tablet Discontinued 40 MG PO Every morning June 02, 2023 1:00am July 30, 2024 10:26am FreeTextSi tablet Orally Once a day; Note: Source Status: Taking; Refills: 11; Provider: Shannon Cabrera Mketorolac tromethamine 5 mg/ml ophthalmic solution (3 sources)Nonsteroidal Anti-inflammatory Drug, Cyclooxygenase InhibitorStart: 01-18-2024 End: 17-76-1254imjy 1 drop(s) into the eye(s) in the morningketorolac (Acular) 0.5 % ophthalmic solution Indications: Age-related nuclear cataract of both eyes Administer 1 drop into affected eye(s) in the morning and 1 drop before bedtime. 5 mL 1 01/18/2024 02/17/2024 Activelactulose 667 mg/ml oral solution (20 sources)Osmotic LaxativeStart: 12-28-2023 End: 50-00-3268lpfl 10 g by mouth once dailylactulose (Enulose) 10 GM/15ML solution oral solution Take 10 g by mouth Daily 12/28/2023 Activelinaclotide 0.145 mg oral capsule (20 sources)Guanylate Cyclase-C AgonistStart: 49-35-4520ypkl 1 capsule by mouth in the morninglinaCLOtide (Linzess) 145 MCG capsule Take 145 mcg by mouth in the morning. 11/12/2024 ActiveMagnesium (3 sources)Start: 27-01-7969Yccyt: 59-29-7361Khedftsaa 200 mg tablet Active 500 MG PO Daily June 19, 2024 1:00ammagnesium hydroxide 80 mg/ml oral suspension (20 sources)Start: 90-53-0467mnxb 30 mL by mouth every twenty-four hours as neededmagnesium hydroxide (Milk of Magnesia) 400 MG/5ML suspension Take 30 mL by mouth Daily as needed 11/15/2024 Activemeclizine hydrochloride 25 mg oral tablet (3 sources)AntiemeticStart: 12-13-2023 End: 94-21-7020bimx 1 tablet by mouth three times daily as needed for dizziness meclizine (Antivert) 25 MG tablet Indications: Dizziness Take 1 tablet (25 mg) by mouth 3 (three) times a day as needed for dizziness for up to 10 days 30 tablet 12/13/2023 12/23/2023 Activemelatonin 3 mg oral tablet (20 sources)Start: 19-50-2549xgcr 1 tablet by mouth at bedtimemelatonin 3 MG tablet Take 3 mg by mouth at bedtime 11/12/2024 Activemethocarbamol 750 mg oral tablet (20 sources)Muscle RelaxantStart: 97-42-1521dmcy 1 tablet by mouth three times daily as neededmethocarbamol (Robaxin) 750 MG tablet Take 750 mg by mouth 3 (three) times a day as needed 11/12/2024 ActiveStart: 33-61-9869syye 1 tablet by mouth twice daily in the morningmethocarbamol (ROBAXIN) 750 mg tablet Take 1 tablet by mouth two times a day. 60 tablet 1 11/15/2024 9:11 AM EDT 11/12/2024 SuspendedStart: 09-27-2024 End: 59-30-0447xgyn 1 tablet by mouth every eight hours as neededmethocarbamol (ROBAXIN) 500 mg tablet Take 1 tablet by mouth three times a day as needed (muscle spasm). 09/27/2024 11/12/2024 Discontinuedmidodrine hydrochloride 10 mg oral tablet (20 sources)alpha-Adrenergic AgonistStart: 57-06-9258qwjvjtnti (Proamatine) 10 MG tablet Take 10 mg by mouth in the morning and 10 mg at noon and 10 mg in the evening. 11/12/2024 ActiveStart: 82-91-5020fupe 1 tablet by mouth every eight hoursmidodrine (PROAMITINE) 5 mg tablet Take 1 tablet by mouth every 8 hours. 09/27/2024 SuspendedMultiple Vitamins-Minerals (Multi For Him) tablet (20 sources)Multiple Vitamins-Minerals (Multi For Him) tablet Daily. Active Multiple Vitamins-Minerals (Multi For Him) tablet Daily. 0 ActiveMultivitamin (Daily Multi-Vitamin) tablet (11 sources)Start: 66-00-4433xoop 1 tablet by mouth once dailyStart: 06-02-2023 take 1 tablet by mouth once dailyMultivitamin (Daily Multi-Vitamin) tablet Active 1 TAB PO Daily June 02, 2023 1:00amStart: 31-00-1101dhcx 1 tablet by mouth once dailyMultivitamin (Daily Multi-Vitamin) tablet Active 1 TAB PO Daily June 02, 2023 12:00amofloxacin 3 mg/ml ophthalmic solution (2 sources)Quinolone AntimicrobialStart: 01-18-2024 End: 26-02-1015vlkk 1 drop(s) into the eye(s) five times dailyofloxacin (Ocuflox) 0.3 % ophthalmic solution Indications: Age-related nuclear cataract of both eyes Administer 1 drop into the right eye 5 (five) times a day for 1 day Starting 1 day before surgery,continue after surgery as directed 5 mL 1 01/18/2024 01/19/2024 ActiveoxyCODONE hydrochloride 5 mg oral tablet (16 sources)Opioid AgonistStart: 11-15-2024 End: 88-36-7451kiby 5-10 mg by mouth every six hours as neededoxyCODONE (Roxicodone) 5 MG immediate release tablet Take 5-10 mg by mouth every 6 (six) hours if needed 11/15/2024 11/24/2024 ActiveStart: 11-12-2024 End: 78-90-1221nzaq 1 tablet by mouth twice daily in the morning for pain oxyCODONE IR (ROXICODONE) 5 mg immediate release tablet Indications: Compression fracture of cervical spine, non-traumatic, with delayed healing, subsequent encounter , Generalized abdominal pain Take 1 tablet by mouth two times a day for 14 days. FOR PAIN. 28 tablet 11/15/2024 9:11 AM EDT 11/12/2024 11/29/2024 SuspendedStart: 10-30-2024 End: 07-86-4725peaq 1 tablet by mouth every six hours as neededoxyCODONE IR (ROXICODONE) 5 mg immediate release tablet Take 1 tablet by mouth every 6 hours as needed for up to 7 days. 0 10/30/2024 11/06/2024 ActiveStart: 09-27-2024 End: 53-37-2469dvbr 1 tablet by mouth every six hours as neededoxyCODONE IR (ROXICODONE) 5 mg immediate release tablet Take 1 tablet by mouth every 6 hours as needed for up to 7 days. 0 09/27/2024 10/04/2024 ActiveStart: 08-19-2024 End: 99-15-1265rllh 1 capsule by mouth every six hours for painoxyCODONE (Oxy- IR) 5 MG immediate release capsule Indications: Other acute postprocedural pain Take1 capsule (5 mg) by mouth every 6 (six) hours if needed for severe pain for up to 5 days 20 obyieqv2508/19/2024 08/24/2024 Activepantoprazole 40 mg delayed release oral tablet (20 sources)Proton Pump InhibitorStart: 14-58-3638wglo 1 tablet by mouth in the morningpantoprazole (ProtoNix) 40 MG EC tablet Take 40 mg by mouth in the morning and 40 mg in the evening. Take before meals. 11/12/2024 ActiveStart: 09-27-2024 End: 93-40-8489zkjm 1 tablet by mouth twice daily before mealtime, then take 4 tablets by mouth in the eveningpantoprazole DR (PROTONIX) 40 mg tablet Take 1 tablet by mouth two times a day before meals at 6 amand 4 pm. 09/27/2024 11/12/2024 Discontinuedpolyethylene glycol 3350 734837 mg / potassium chloride 2970 mg / sodium bicarbonate 6740 mg / sodium chloride 5860 mg / sodium sulfate 81754 mg powder for oral solution (1 source)Osmotic LaxativeStart: 08-12-2024 End: 10-03-6596iip 3350-Electrolytes (GOLYTELY) 236-22.74-6.74 -5.86 gram suspension Indications: Encounter for screening colonoscopy Take 4,000 mL by mouth one time only for 1 dose. Refer to printed prep instructions from your provider. 4000 mL 08/12/2024 08/12/2024 ActiveprednisoLONE acetate 10 mg/ml ophthalmic suspension (2 sources)CorticosteroidStart: 01-18-2024 End: 77-54-5080vyrctghaTRYM acetate (Pred-Forte) 1 % ophthalmic suspension Indications: Age-related nuclear cataract of both eyes Administer 1 drop into both eyes in the morning and 1 drop at noon and 1 drop in theevening and 1 drop before bedtime. Do all this for 14 days. 5 mL 1 01/18/2024 02/01/2024 Active rifAXIMin 550 mg oral tablet (20 sources)Rifamycin AntibacterialStart: 10-13-2023 End: 95-74-7949qzrv 1 tablet by mouth in the morningrifAXIMin (Xifaxan) 550 MG tablet Take 550 mg by mouth in the morning and 550 mg in the evening. 10/26/2023 Activetamsulosin hydrochloride 0.4 mg oral capsule (20 sources)alpha-Adrenergic BlockerStart: 39-50-7004cnge 1 capsule by mouth every twenty-four hours at bedtimetamsulosin (Flomax) 0.4 MG 24 hr capsule Take 0.4 mg by mouth at bedtime 11/12/2024 ActiveStart: 17-26-8217gxcw 1 capsule by mouth once daily at bedtimetamsulosin (FLOMAX) 0.4 mg Take 1 capsule by mouth daily at bedtime. 30 capsule 2 11/15/2024 9:11 AM EDT 11/12/2024 SuspendedStart: 46-78-3772vgtq 1 capsule by mouth once daily at bedtimetamsulosin (FLOMAX) 0.4 mg Take 1 capsule by mouth daily at bedtime. 09/29/2024 Suspendedtorsemide 20 mg oral tablet (20 sources)Loop DiureticStart: 91-31-4547xhro 1 tablet by mouth once daily torsemide (Demadex) 20 MG tablet Take 20 mg by mouth Daily 04/29/2024 Active Start: 04-29-2024 End: 07-31-8973leey 3 tablets by mouth once dailytorsemide (DEMADEX) 20 mg tablet Take 3 tablets by mouth once daily. 270 tablet 04/29/2024 07/25/2024 Discontinued (Course of therapy completed)traZODone hydrochloride 50 mg oral tablet (20 sources)Serotonin Reuptake InhibitorStart: 09-27-2024 End: 74-73-4691ilmj 1 tablet by mouth at bedtimetraZODone (Desyrel) 50 MG tablet Take 50 mg by mouth at bedtime 11/12/2024 Activeursodiol 300 mg oral capsule (20 sources)Bile AcidStart: 10-30-2024 End: 28-19-3252lhdhejtl (Actigall) 300 MG capsule Take 300 mg by mouth in the morning and 300 mg at noon and 300 mg in the evening. 11/12/2024 Active valGANciclovir 450 mg oral tablet (20 sources)Start: 86-84-3246dotk 2 tablets by mouth in the morning valGANciclovir (Valcyte) 450 MG tablet Take 900 mg by mouth in the morning and 900 mg in the evening. Take with meals. 10/30/2024 Active Completed/Discontinued Medications MedicationDrug Class(es)DatesSig (Normalized)Sig (Original)acetaminophen 500 mg oral tablet (20 sources)Start: 09-18-2024 End: 24-03-0526wcpd 1 tablet by mouth every six hours as neededacetaminophen (TYLENOL) 500 mg tablet Take 1 tablet by mouth every 6 hours as needed for pain. 60 tablet 09/18/2024 11/12/2024 Discontinuedacetaminophen 325 mg / oxyCODONE hydrochloride 5 mg oral tablet (10 sources)Opioid AgonistStart: 06-13-2023 End: 92-42-9049dppr 1 tablet by mouth every six hours as needed for pain Oxycodone-Acetaminophen (Percocet) 5-325 mg tablet Discontinued 1 TAB PO Q6H as needed for pain 11 11June 13, 2023 July 05, 2023 9:01am20 ml albumin human, [facility] 250 mg/ml injection (2 sources)Human Serum AlbuminStart: 07-05-2024 End: 51-10-340703 g, INTRAVENOUS, at 400 mL/hr, ONCE, 1 dose, On Mon07/05/24 at 1100, IntraprocedureStart: 05-01-2024 End: .5 g, INTRAVENOUS, at 400 mL/hr, ONCE, 1 dose, On Mon05/01/24 at 1230, Intraprocedureatropine sulfate 0.025 mg / diphenoxylate hydrochloride 2.5 mg oral tablet (20 sources)Anticholinergic, Cholinergic Muscarinic Antagonist, Antidiarrheal Start: 07-05-2023 End: 03-36-2633erye 1 tablet by mouth three times dailyDiphenoxylate-Atropine 2.5-0.025 mg tablet Discontinued 1 TAB PO Three times daily July 05, 2023 12:00am June 19, 2024 1:12pmStart: 06-02-2023 End: 59-14-3284bbdq 1 tablet by mouth three times daily as needed for diarrhea Diphenoxylate-Atropine 2.5-0.025 mg tablet Discontinued 1 TAB PO Three times daily as needed for diarrhea June 02, 2023 1:00am June 13, 2023 12:59pm FreeTextSi tablet as needed OrallyFour times a day; Note: Source Status: Taking; Refills: 11; Qty: 120 Tablet; Provider: Shannon Cabrera MStart: 88-17-3069wvtg 1 tablet by mouth every six hoursDiphenoxylate-Atropine 2.5-0.025 MG 1 tablet as needed Orally Four times a day for 30 days Jan, Active take 1 tablet by mouth three times daily as needed for diarrheadiphenoxylate- atropine (Lomotil) 2.5-0.025 MG tablet Take 1 tablet by mouth 3 (three) times a day as needed for diarrhea 0 Activebaclofen 20 mg oral tablet (20 sources)gamma-Aminobutyric Acid-ergic AgonistStart: 07-05-2023 End: 17-04-6944ufts 1 tablet by mouth once daily at bedtimeBaclofen 20 mg tablet Discontinued 20 MG PO Daily at bedtime July 05, 2023 12:00am June 1:11pmbaclofen (Lioresal) 20 MG tablet Take by mouth 3 (three) times a day PRN Activecalcium carbonate 500 mg chewable tablet (9 sources)Start: 64-43-7197auqf 500 mg by mouth every eight hours as needed calcium carbonate (TUMS) 500 mg chew Take 1 tablet by mouth three times a day as needed. 09/27/20240896Zluxqyxenmmdqhdv-tnomftdhn-spud 333-133-5 MG per tablet (1 source) End: 74-82-7659yuftmke-magnesium-zinc 333-133-5 MG per tablet Take 1 tablet by mouth in the morning and 1 tablet at noon and 1 tablet in the evening. Take with meals. 0 05/18/2023 Discontinuedcarvedilol 3.125 mg oral tablet (20 sources)alpha-Adrenergic Connie, beta-Adrenergic BlockerStart: 12-27-2023 End: 75-18-3583akts 1 tablet by mouth twice daily at mealtimeCarvedilol (Coreg) 3.125 mg tablet Discontinued 3.125 MG PO Twice daily June 19, 2024 1:00am July 30, 2024 10:27am must administer with a meal/foodStart: 11-27-2023 End: 56-47-2889cpux 1 tablet by mouth in the morningcarvedilol (Coreg) 3.125 MG tablet Take 3.125 mg by mouth in the morning and 3.125 mg in the evening. Take with meals. 11/27/2023 12/13/2023 Discontinued (Other)ciprofloxacin 500 mg oral tablet (9 sources)Quinolone AntimicrobialStart: 11-13-2024 End: 37-89-2907lruh 1 tablet by mouth twice daily in the morningciprofloxacin HCl (CIPRO) 500 mg tablet Take 1 tablet by mouth two times a day for 5 days. 10 tablet 11/15/2024 9:11 AM EDT 11/13/2024 11/20/2024 ExpiredDAPTOmycin (CUBICIN) 700 mg/100 mL pgbk iv piggyback in NaCl 0.9% 100 mL (10 sources)Start: 10-30-2024 End: 99-61-7433qxct 700 mg intravenously every twenty-four hoursDAPTOmycin (CUBICIN) 700 mg/100 mL pgbk iv piggyback in NaCl 0.9% 100 mL Inject 100 mL intravenously every 24 hours for 14 days. 1400 mL 10/30/2024 11/13/2024 Start: 10-30-2024 End: 24-21-3601heoj 700 mg intravenously every twenty-four hoursDAPTOmycin (CUBICIN) 700 mg/100 mL pgbk iv piggyback in NaCl 0.9% 100 mL Inject 100 mL intravenously every 24 hours for 14 days. 1400 mL 10/30/2024 11/13/2024 Active esomeprazole 40 mg delayed release oral capsule (20 sources)Proton Pump InhibitorStart: 06-02-2023 End: 26-92-6325Exxtlkksklnx Magnesium 40 mg capsule,delayed release(DR/EC) Discontinued 40 MG PO Twice daily June 02, 2023 1:00am June 19, 2024 1:12pm FreeTextSi capsule 30 minutes before morning meal & 1 capsule in the evening Orally twice a day; Note: Source Status: Taking; Refills: 12; Provider: Shannon Cabrera MStart: 36-93-9433Perkmjijdkbj Magnesium 40 MG 1 capsule 30 minutes before morning meal & 1 capsule in the evening Orally twice a day for 30 days Sep, Active1 ml heparin sodium, porcine 5000 unt/ml injection (20 sources)Unfractionated Heparin, Anti-coagulantStart: 36-25-7633zjtcgb 1 mL by subcutaneous injection every twelve hoursheparin 5,000 unit/mL injection Inject 1 mL subcutaneously every 12 hours. 09/27/2024 Suspended hydroCHLOROthiazide 25 mg / triamterene 37.5 mg oral capsule (20 sources)Potassium-sparing Diuretic, Thiazide DiureticStart: 06-13-2023 End: 20-67-7250Rsyylzwfjxg-Hydrochlorothiazid 37.5-25 mg capsule Discontinued [facility] June 13, 2023 1:00am 2023 9:01amStart: 06-13-2023 End: 54-75-8937Jrzycroxchk-Hydrochlorothiazid Discontinued [facility] June 13, 2023 1:00am July 05, 2023 9:01amStart: 39-15-9957nnnv 1 capsule by mouth once daily in the morning as neededtriamterene-hydroCHLOROthiazide (Dyazide) 37.5-25 MG capsule TAKE 1 CAPSULE BY MOUTH EVERY MORNING NEEDED FOR LEG SWELLING 03/16/2023 ActiveStart: 09-19-2022 End: 69-20-1663Rqfclbjslxn-Hydrochlorothiazid 37.5-25 mg capsule Discontinued 1 CAP PO As Directed September 19, 2022 12:00am June 02, 2023 11:15am End: 28-97-2155rxqy 1 tablet by mouth in the morningtriamterene- hydrochlorothiazide (Maxzide-25) 37.5-25 MG tablet Take 1 tablet by mouth in the morning. 0 05/18/2023 Discontinuedibuprofen 800 mg oral tablet (13 sources)Nonsteroidal Anti-inflammatory DrugStart: 06-02-2023 End: 65-80-7181vgjv 1 tablet by mouth three times daily as needed for pain Ibuprofen 800 mg tablet Discontinued 800 MG PO Three times daily as needed for pain June 02, 2023 1:00am June 19, 2024 1:12pminsulin lispro 100 unt/ml injectable solution (9 sources)Insulin AnalogStart: 99-52-3605ssptump lispro 100 unit/mL injection Inject 2 Units subcutaneously three times a day with meals. plus sliding scale 3 times daily with meals If Blood Glucose (mg/dL) is 111-150 Give 0 units 151-200 Give 2 unit 201-250 Give 4 units 251-300 Give 6 units 301-350 Give 8 units 351- 400 Give 10 units >400 give 10units and notify provider. If blood glucose is less than 70 mg/dL implement hypoglycemia treatment orders and notify pro 09/29/2024 Suspendediv contrast (will be provided with radiology test) (9 sources)Start: 11-12-2024 End: 27-48-4370kruczi 1 dose intravenously once, then inject 1 dose intravenously onceiv contrast (will be provided with radiology test) [...] protocol in the MR contrast administration guidelines link.1 each 11/12/2024 11/13/2024 ExpiredStart: 11-12-2024 End: 41-60-9562kkivwe 1 dose intravenously once, then inject 1 dose intravenously onceiv contrast (will be provided with radiology test) [...] protocol in the MR contrast administration guidelines link.1 each 11/12/2024 11/13/2024 ActiveStart: 08-22-2024 End: 79-09-9728ieqrjc 1 dose intravenously once, then inject 1 dose intravenously onceiv contrast (will be provided with radiology test) [...] protocol in the MR contrast administration guidelines link.1 each 08/22/2024 08/23/2024 ActiveStart: 05-18-2024 End: 72-93-8810tq contrast (will be provided with radiology test) MRI Liver Inject, intravenously, [...] administration guidelines link. 1 Each 05/18/2024 05/19/2024 ActiveStart: 05-18-2024 End: 93-68-0599mimmap 1 dose intravenously once, then inject 1 dose intravenously onceiv contrast (will be provided with radiology test) [...] protocol in the MR contrast administration guidelines link.1 Each 05/18/2024 05/19/2024 ActiveStart: 04-23-2024 End: 87-48-9851lj contrast (will be provided with radiology test) Indications: Lesion of liver greater than 1 cm in diameter , Alcoholic cirrhosis of liver with ascites (HCC) , Liver transplant candidate , Metabolic dysfunction- associated steatotic liver disease (MASLD) CT LIVER W IVCON Inject, intravenously, once for 1 dose. No IV access, insert saline lock prior to the beginning of sedation, infusion, injection of imaging exam. Discontinue saline lock post exam. If Pt. has a central line or IVAD, may accessfor administration according to line specific nursing protocol. Once exam is complete flush line and de-access according to line specific nursing protocol in the CT contrast administration guidelineslink. 1 Each 04/23/2024 04/24/2024 Activelansoprazole 30 mg delayed release oral capsule (20 sources)Proton Pump InhibitorStart: 04-29-2024 End: 63-74-2000ujua 1 capsule by mouth once dailylansoprazole (PREVACID) 30 mg capsule Take 1 capsule by mouth once daily. 04/29/2024 09/18/2024 Discontinued Start: 27-07-8878lmds 1 capsule by mouth twice dailylansoprazole (Prevacid SoluTab) 30 MG disintegrating tablet Take 15 mg by mouth in the morning. Take before meals. Dissolve on tongue before swallowing particles; do not chew, cut, break, or swallow whole.. Duxhfu63 ml lidocaine hydrochloride 20 mg/ml injection (3 sources)Antiarrhythmic, Amide Local AnestheticStart: 07-05-2024 End: 19-77-2534MZOPNPBIHON, X (OR/PROCEDURE) PRN, Starting on Mon07/05/24 at 0904, Until Mon07/05/24 at 0904, IntraprocedureStart: 05-31-2024 End: 69-61-9048GNXKVQLVBQU, X (OR/PROCEDURE) PRN, Starting on 05/31/24 at 0930, Until 06/01/24 at 0406, IntraprocedureStart: 05-01-2024 End: 30-18-3365GVTJPRYLWYQ, X (OR/PROCEDURE) PRN, Starting on Mon05/01/24 at 1042, Until Mon05/01/24 at 1041, Intraprocedurelisinopril 20 mg oral tablet (20 sources)Angiotensin Converting Enzyme InhibitorStart: 03-31-2017 End: 44-01-8562yftp 1 tablet by mouth once daily in the morningLisinopril 20 mg tablet Discontinued 20 MG PO Every morning September 19, 2022 12:00am June 19, 2024 1:11pmmagnesium oxide 400 mg oral tablet (20 sources)Start: 11-12-2024 End: 12-08-2840yegn 2 tablets by mouth three times dailymagnesium oxide (MAG-OX) 400 mg (241.3 mg magnesium) tablet Take 2 tablets by mouth three times a day. 9am, 3pm, 9pm 180 tablet 5 11/12/2024 11/13/2024 Discontinued (Course of therapy completed)Start: 09-27-2024 End: 02-30-2286lcwm 1 tablet by mouth twice dailymagnesium oxide (MAG-OX) 400 mg (241.3 mg magnesium) tablet Take 1 tablet by mouth two times a day.09/27/2024 11/12/2024 Discontinuedmagnesium oxide (Mag-Ox) 400 MG tablet Take 500 mg by mouth in the morning. Activetake 1 capsule by mouth once dailyMagnesium Oxide 500 mg cap Take 500 mg by mouth once daily. Suspendedmetoprolol tartrate 25 mg oral tablet (20 sources)beta-Adrenergic BlockerStart: 09-19-2022 End: 85-90-3358wizm 1 tablet by mouth twice dailyMetoprolol Tartrate 25 mg tablet Discontinued 25 MG PO Twice daily September 19, 2022 12:00am June 02, 2023 11:11amStart: 03-31-2017 End: 92-36-5732orwb 1 tablet by mouth once dailymetoprolol succinate ER (TOPROL XL) 50 mg 24 hr tablet Take 1 tablet by mouth once daily. 90 dtoxvi4003/31/2017 04/29/2024 DiscontinuedMetoprolol Tartrate Activemirtazapine 7.5 mg oral tablet (16 sources)Start: 37-69-4699evbm 1 tablet by mouth once daily at bedtime Mirtazapine (REMERON) 7.5 mg tablet Take 1 tablet by mouth daily at bedtime. 30 tablet 2 59:11 AM EDT 11/12/2024 SuspendedStart: 10-30-2024 End: 51-67-9547kdto 1 tablet by mouth once daily at bedtimemirtazapine (REMERON) 15 mg tablet Take 1 tablet by mouth daily at bedtime. 90 tablet 10/30/2024 Discontinuedmultivitamin tablet (20 sources)Start: 03-01-5095dccg 1 tablet by mouth once dailymultivitamin tablet Take 1 tablet by mouth once daily. 30 tablet 11 11/12/2024 Suspended Start: 76-00-0123uixa 1 tablet by mouth once dailymultivitamin tablet Take 1 tablet by mouth once daily. 30 tablet 11 11/12/2024 Active End: 69-74-4336qlnu 1 tablet by mouth once dailymultivitamin tablet Take 1 tablet by mouth once daily. 11/12/2024 Discontinuedtake 1 tablet by mouth once dailymultivitamin tablet Take 1 tablet by mouth once daily. Suspendedtake 1 tablet by mouth once dailymultivitamin tablet Take 1 tablet by mouth once daily. Activeomeprazole 40 mg delayed release oral capsule (20 sources)Proton Pump InhibitorStart: 09-21-2022 End: 54-62-8853ncca 1 capsule by mouth twice dailyOmeprazole 40 mg capsule,delayed release(DR/EC) Discontinued 40 MG PO Twice daily 60 September 212:00am June 02, 2023 11:13amStart: 03-31-2017 End: 01-49-9861fzyj 1 capsule by mouth once dailyOmeprazole 40 mg Capsule,Delayed Release(Dr/Ec) Discontinued 40 MG PO Daily September 19, 2022 12:00am September 21, 2022 8:23amondansetron 4 mg oral tablet (20 sources)Serotonin-3 Receptor AntagonistStart: 07-05-2023 End: 33-09-7559txms 1 tablet by mouth three times dailyOndansetron Hcl 4 mg tablet Discontinued 4 MG PO Three times daily 90 July 05, 2023 9:32am Jun 1:12pmStart: 07-05-2023 End: 97-85-2516mqiu 1 tablet by mouth once dailyOndansetron Hcl 4 mg tablet Discontinued 4 MG PO Daily July 05, 2023 12:00am July 05, 2023 9:32ampolyethylene glycol 3350 83198 mg powder for oral solution (17 sources)Osmotic LaxativeStart: 90-25-3527rruytblvhuyo glycol 3350 17 gram packet Take 1 packet by mouth once daily. Dissolve dose in 4 - 8 ounces of liquid and take as directed. 10/31/2024 Suspendedsimethicone 80 mg chewable tablet (9 sources)Start: 95-08-7554kmdb 1 tablet by mouth every six hours as needed simethicone, chewable (MYLICON) 80 mg chewable tablet Take 1 tablet by mouth four times a day as needed. 9am,12n, 6pm, 9pm 120 tablet 2 11/12/2024 Suspended spironolactone 100 mg oral tablet (20 sources)Aldosterone AntagonistStart: 05-04-2024 End: 31-84-4832hirh 1.5 tablets by mouth once dailyspironolactone (ALDACTONE) 100 mg tablet Take 1.5 tablets by mouth once daily. 45 tablet 2 05/04/2024 09/18/2024 DiscontinuedStart: 98-18-9094mcxc 1 tablet by mouth once daily spironolactone (Aldactone) 50 MG tablet Take 50 mg by mouth Daily 04/29/2024 ActiveStart: 04-29-2024 End: 73-23-0360uvst 2 tablets by mouth once dailyspironolactone (ALDACTONE) 100 mg tablet Take 2 tablets by mouth once daily. 180 tablet 04/29/2024 05/04/2024 DiscontinuedStart: 03-01-2024 End: 63-41-9866ffsf 3 tablets by mouth once dailyspironolactone (ALDACTONE) 50 mg tablet Take 150 mg by mouth once daily. 03/01/2024 05/04/2024 Discontinued Start: 81-89-7335jskp 1 tablet by mouth once dailyspironolactone (Aldactone) 100 MG tablet TAKE 1 TABLET BY MOUTH EVERY DAY FOR 30 DAYS 05/10/2023 Active sulfamethoxazole 800 mg / trimethoprim 160 mg oral tablet (20 sources)Dihydrofolate Reductase Inhibitor Antibacterial, Sulfonamide AntimicrobialStart: 09-20-2024 End: 75-57-7382nfgy 1 tablet by mouth oncesulfamethoxazole-trimethoprim (BACTRIM DS) 800-160 mg per tablet Take 1 tablet by mouth every Monday, Monday, and Monday. 15 tablet 2 09/20/2024 11/12/2024 Discontinuedtacrolimus 5 mg oral capsule (20 sources)Calcineurin Inhibitor ImmunosuppressantStart: 10-30-2024 End: 89-90-5395ojhj 1 capsule by mouth twice dailytacrolimus IR (PROGRAF) 5 mg capsule Take 1 capsule by mouth two times a day. 10/30/2024 11/12/2024 DiscontinuedStart: 87-77-3790cjft 1 capsule by mouth twice dailytacrolimus IR (PROGRAF) 1 mg capsule Take 4 capsules by mouth two times a day. 09/29/2024 Suspendedzolpidem tartrate 10 mg oral tablet (11 sources)gamma-Aminobutyric Acid-ergic AgonistStart: 02-13-2017 End: 99-43-0130cajd 5 mg by mouth every twenty-four hours as neededzolpidem (AMBIEN) 10 mg tab Take 0.5 tablets by mouth at bedtime as needed. 30 tablet 02/13/2017 04/29/2024 Discontinued Problems Active Problems Problem ClassificationProblemDateDocumented DateEpisodic/ChronicAbdominal pain (4 sources)Lower abdominal pain, unspecified; Translations: [Generalized abdominal pain]Onset: 14-69-6814YedojqhpJinmzmx-related disorders (20 sources)Alcoholic cirrhosis; Translations: [Alcoholic cirrhosis of liver with ascites]Onset: 531865-19-8922IvvifsqHpuxaj; peripheral; and visceral artery aneurysms (20 sources)Aortic root dilatation; Translations: [Thoracic aortic ectasia] Onset: 516855-25-1973ZuwelkhFmqucxg tract disease (4 sources)Stricture of bile duct; Translations: [Obstruction of bile duct] Onset: 434241-52-9828VrcsyewFfkwih of liver and intrahepatic bile duct (20 sources)Liver cell carcinoma; Translations: [Liver cell carcinoma]Onset: 614089-44-2175XkjusasFgjrypn dysrhythmias (20 sources)Multiple premature ventricular complexes; Translations: [Ventricular premature depolarization]Onset: 401898-36-7318FkbyfngCcwnictr (20 sources)Nuclear senile cataract; Translations: [Age-related nuclear cataract, bilateral]Onset: 875767-83-7887VzwxyefPccsnbe kidney disease (20 sources)Chronic kidney disease stage 3A ; Translations: [Stage 3a chronic kidney disease]Onset: 059760-18-6262NdqcnyuSjmqqcwfcdj and hemorrhagic disorders (20 sources)Thrombocytopenic disorder; Translations: [Thrombocytopenia, unspecified]Onset: 812348-86-0074RrbdvsfPlhplnrniurgp of surgical procedures or medical care (20 sources)Pulmonary insufficiency following surgery; Translations: [Other postprocedural complications and disorders of respiratory system, not elsewhere classified]Onset: 09-09-2024 Resolved: 565459-42-1836UbwsitfzVnvaazmfah disorders (1 source)Unspecified atrioventricular block; Translations: [AV block]Onset: 96-77-2393MsyqtdzJsrxgpcg atherosclerosis and other heart disease (1 source)Coronary arteriosclerosis; Translations: [Atherosclerotic heart disease of [place] coronary artery without angina pectoris]90-72-8616Fiwkqjz Diabetes mellitus with complications (20 sources)Hyperglycemia due to type 2 diabetes mellitus; Translations: [Type 2 diabetes mellitus with hyperglycemia]Onset: 635085-83-1484TydsrkfZhsnjwbx mellitus without complication (20 sources)Type 2 diabetes mellitus without complication; Translations: [Type 2 diabetes mellitus without complications]Onset: 11-17-2022 Resolved: 289270-98-7238XutzalzQlhyedrp of white blood cells (1 source)Leukopenia; Translations: [Decreased white blood cell count, unspecified]Onset: 419940-45-4271DrlsssvRifxpyoux of lipid metabolism (20 sources)Dyslipidemia; Translations: [Hyperlipidemia, unspecified]Onset: 608351-18-1948GrepwxoWmrdebifou disorders (20 sources)Recinos's esophagus; 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]Onset: 90-39-5658PyxsskeUryvnmpar hypertension (20 sources)Benign essential hypertension; Translations: [Essential (primary) hypertension]Onset: 11-26-2012 Resolved: 275225-70-2339PkcbqrxZift and other crystal arthropathies (20 sources)Primary gout; Translations: [Idiopathic gout, unspecified site] Onset: 135396-89-8493MyxwfpgGcstcnsmu (20 sources)Nonalcoholic steatohepatitis; Translations: [Nonalcoholic steatohepatitis ([place])]Onset: 056134-95-0410OaolvkkJhmawhkc disorders (20 sources)Immunosuppression; Translations: [Immunodeficiency, unspecified] Onset: 602444-56-7039CnzfeltIeljpkpyfqt deficiencies (20 sources)Deficiency of macronutrients; Translations: [Unspecified severe protein-calorie malnutrition]Onset: 504096-57-3152YxylcclKflulpxkbpeo (20 sources)Osteoporosis; Translations: [Age-related osteoporosis without current pathological fracture]Onset: 224562-55-1658ImevjsfAwdxf circulatory disease (1 source)Low blood pressure; Translations: [Hypotension, unspecified]Onset: 578167-98-4380IzvwxuklUreaf disorders of stomach and duodenum (10 sources)Disorder of function of stomach; Translations: [Disease of stomach and duodenum, unspecified]47-99-5419HedxdqfsJprig disorders of stomach and duodenum (1 source)Disease of stomach and duodenum, unspecified; Translations: [Dyspepsia and other specified disorders of function of stomach]10-60-4150JmnqxlnrXannc eye disorders (20 sources)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; 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, left eye]Onset: 704373-12-7465NvkiedzRvqeb fractures (4 sources)Compression fracture of cervical spine; Translations: [Collapsed vertebra, not elsewhere classified, cervical region, subsequent encounter for fracture with delayed healing]79-26-7081JwxdeicdCnxsk gastrointestinal disorders (9 sources)H/O: gastrointestinal disease; Translations: [Personal history of other diseases of the digestive system]EpisodicOther gastrointestinal disorders (6 sources)Flatulence, eructation and gas pain; Translations: [Abdominal distension (gaseous)]EpisodicOther gastrointestinal disorders (6 sources)Loose stool; Translations: [Other fecal abnormalities]EpisodicOther gastrointestinal disorders (1 source)Abdominal distension (gaseous)EpisodicOther gastrointestinal disorders (3 sources)Other ascites; Translations: [Other ascites]Onset: 50-73-7473Kxgfvzky Other gastrointestinal disorders (7 sources)Intra-abdominal collection; Translations: [Other ascites]Onset: 05-01-2024 Resolved: 155426-58-6301RvhmxnvkJxfqw gastrointestinal disorders (1 source)Dysphagia; Translations: [Dysphagia, unspecified]Onset: 12-26-2024 34-51-4842NgjdgseqSikyk liver diseases (20 sources)Steatosis of liver; Translations: [Fatty (change of) liver, not elsewhere classified]Onset: 910499-14-3640EbwmkmwErmfo liver diseases (2 sources)Fatty (change of) liver, not elsewhere classified; Translations: [Metabolic dysfunction-associated steatotic liver disease (MASLD)]Onset: 26-39-0874PycmjnjRjfnf liver diseases (20 sources)Cirrhosis of liver; Translations: [Unspecified cirrhosis of liver] Onset: 482357-80-5023CkckgjxAgdnl liver diseases (9 sources)Unspecified cirrhosis of liver; Translations: [Cirrhosis of liver without mention of alcohol]Onset: 99-30-7311YjsertdJafna liver diseases (10 sources)Pleural effusion associated with hepatic disorder; Translations: [Liver disease, unspecified]94-93-7215KglcrunSplbv liver diseases (10 sources)Lesion of liver; Translations: [Liver disease, unspecified] 62-35-8470RbmjsqtMuaon liver diseases (20 sources)Portal hypertension; Translations: [Portal hypertension]Onset: 527217-26-6315ModotyaHmqnt liver diseases (4 sources)Liver disease, unspecified; Translations: [Liver disease, unspecified]Onset: 49-33-2601BwqwjxvCjjid liver diseases (1 source)Portal jusrdnavj35-73-5575VvbczuvKokyb liver diseases (1 source)Liver transplant status; Translations: [Status post liver transplant (HCC)]Onset: 07-62-5357DnnvdsvJatjb liver diseases (1 source)Liver mass; Translations: [Hepatomegaly, not elsewhere classified] 42-64-1453ZnxnzrwqWpzyy lower respiratory disease (20 sources)Dyspnea; Translations: [Shortness of breath]Onset: 03-08-2024 33-78-6404WzidvgwpQpuya nervous system disorders (20 sources)Critical illness myopathy; 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] Onset: 712625-00-7518XkewawkXculu nervous system disorders (5 sources)Disorder of brain; Translations: [Encephalopathy, unspecified]Onset: 232051-17-1124IjzvbblXkeah nervous system disorders (2 sources)Acute postoperative pain; Translations: [Other acute postprocedural pain]99-37-6159NfrcykomNwejv nutritional; endocrine; and metabolic disorders (20 sources)Metabolic syndrome X; Translations: [Metabolic syndrome]Onset: 283157-23-2461LgvnbenQhkgv nutritional; endocrine; and metabolic disorders (20 sources)Obese class I; Translations: [Class 1 obesity]Onset: 07-26-2018 41-73-0812BdawvjmVdybm screening for suspected conditions (not mental disorders or infectious disease) (3 sources)Abnormal radionuclide brta71-16-9976ZyrhqjeYmmcm skin disorders (1 source)Eruption; Translations: [Rash and other nonspecific skin eruption] Onset: 720937-25-6917HnofohmwUoprwubxn (1 source)Cauda equina syndrome; Translations: [Cauda equina syndrome]Onset: 636006-83-4495FxdpanoEavzmqtt; pneumothorax; pulmonary collapse (20 sources)Pleural effusion; Translations: [Pleural effusion, not elsewhere classified]Onset: 223322-40-2368ExbhnotfQjhoqkza codes; unclassified (20 sources)Awaiting transplantation of liver; Translations: [Awaiting organ transplant status]08-11-8536GacwzgqZlqqzrlj codes; unclassified (1 source)Awaiting transplantation; Translations: [Awaiting organ transplant status]62-59-7574SoadxvxOqnflsda codes; unclassified (1 source)Awaiting organ transplant status; Translations: [Liver transplant candidate]Onset: 31-02-4736FpkuimoMbhqyygl codes; unclassified (6 sources)Edema; Translations: [Localized edema]EpisodicResidual codes; unclassified (6 sources)Early satiety; Translations: [Early satiety]EpisodicResidual codes; unclassified (1 source)Localized edemaEpisodicResidual codes; unclassified (2 sources)Early satietyEpisodicResidual codes; unclassified (4 sources)Altered mental status; Translations: [Altered mental status, unspecified]Onset: 975605-80-5116FslzyexqIclcvplrlwj failure; insufficiency; arrest (adult) (1 source)Dependence on ventilator; Translations: [Dependence on respirator [ventilator] status]Onset: 432030-21-7600WfztgwhZpmdmax detachments; defects; vascular occlusion; and retinopathy (20 sources)Epiretinal membrane; 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, bilateral] Onset: 295839-97-7304AqasnqwAqznefgnf malignancies (1 source)Secondary malignant neoplasm of bone; Translations: [Secondary malignant neoplasm of bone and bone marrow]98-62-5013EtooypfVzsnyxfyx malignancies (2 sources)Secondary malignant neoplastic disease; Translations: [Secondary malignant neoplasm of unspecified site]66-10-9715GfmmcxqDpeezegfoior (1 source)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)07-07-2024 Unclassified (18 sources)Colonoscopy Care CompanionOnset: 616278-52-5031Wrhrewdpedbm (1 source)Low back pain, unspecified back pain laterality, unspecified chronicity, unspecified whether sciatica present; Translations: [Low back pain, unspecified back pain laterality, unspecified chronicity, unspecified whether sciatica present]Onset: 06-08-2024 Past or Other Problems Problem ClassificationProblemDateDocumented DateEpisodic/ChronicAbdominal hernia (20 sources)Incisional hernia; Translations: [Incisional hernia without obstruction or gangrene]Onset: 723696-19-2276FoapxqehTemtw and unspecified renal failure (20 sources)Acute kidney failure, unspecified; Translations: [Acute renal failure syndrome]Onset: 12-27-2023 Resolved: 85-98-8236QlihhtjeKwigo posthemorrhagic anemia (20 sources)Acute posthemorrhagic anemia; Translations: [Acute posthemorrhagic anemia]Onset: 963923-08-9727SenufftiBfnmivlhkyidfp/social admission (20 sources)Drug therapy finding; Translations: [Other specified counseling] Onset: 762560-31-0585HyaqmjvsNwzq and rectal conditions (20 sources)Anal fissure; Translations: [Anal fissure, unspecified]Onset: 498423-74-9941SkcuveucYmlftplvet pneumonitis; food/vomitus (1 source)Aspiration pneumonia due to regurgitated gastric secretions; Translations: [Pneumonitis due to inhalation of food and vomit]Onset: 12-17-2024 Resolved: 264820-15-9632XmzzosheNsrlprtba infection; unspecified site (20 sources)Infection due to vancomycin resistant enterococcus; Translations: [Streptococcal infection, unspecified site]Onset: 10-20-2024 Resolved: 908831-73-6538UotcysmnHszvlyj tract disease (1 source)Calculus of bile duct without cholangitis or cholecystitis without obstruction; Translations: [Biliary stone of transplanted liver (HCC)]Onset: 77-42-0603LtbzgpzvRbijsuo dysrhythmias (2 sources)Sinus bradycardia; Translations: [Bradycardia, unspecified]Onset: 12-11-2024 Resolved: 587930-49-9792CpokgnxrQidsvrcykgnt of device; implant or graft (20 sources)Complication of transplanted liver; Translations: [Unspecified complication of liver transplant]Onset: 226147-35-3081XhvdsjxlMiflzeswlg associated with dizziness or vertigo (20 sources)Dizziness; Translations: [Dizziness and giddiness]Onset: 11-06-2018 73-80-8556HatjdmlkQowzhpmegu and other anemia (20 sources)Anemia due to multiple mechanisms; Translations: [Other specified anemias]Onset: 415943-32-3265MedcfdjyEummppdz mellitus without complication (20 sources)Steroid-induced hyperglycemia; Translations: [Hyperglycemia, unspecified]Onset: 560586-08-8731XughfzysRmifv and electrolyte disorders (20 sources)Hypo-osmolality and hyponatremia; Translations: [Hyponatremia]Onset: 03-08-2024 Resolved: 31-83-2845ZjwmkzumQtxejjfwdgf (20 sources)Internal hemorrhoids grade II; Translations: [Second degree hemorrhoids]Onset: 803739-43-8520TwnswnroPlaasdmivakas and screening for infectious disease (2 sources)Vaccination needed; Translations: [Encounter for immunization]Onset: 069023-08-1307MomnnuicGwvncwzttx obstruction without hernia (20 sources)Intestinal obstruction co-occurrent and due to decreased peristalsis; Translations: [Ileus, unspecified]Onset: EpisodicMalaise and fatigue (20 sources)Physical deconditioning; Translations: [Other malaise]Onset: 307860-09-2891DgdiyqrmSdkmbo and vomiting (20 sources)Nausea; Translations: [Nausea]Onset: 14-51-1582FviqcwitWmsjn aftercare (20 sources)Insulin dose changed; Translations: [skilled nursing (current) use of insulin]Onset: 064558-06-9321TzhhodbcVaeow and unspecified benign neoplasm (20 sources)History of polyp of colon; Translations: [Personal history of colonic polyps]Onset: 721535-42-8084YldzbshuMlzig and unspecified benign neoplasm (20 sources)Polyp of colon; Translations: [Polyp of colon]Onset: 08-31-2024 89-70-8722UqyknbvaDvhif connective tissue disease (20 sources)Muscle pain; Translations: [Myalgia, unspecified site]Onset: 462050-05-3077WgagagvdXnybx connective tissue disease (20 sources)Olecranon bursitis; Translations: [Olecranon bursitis, unspecified elbow]Onset: 629478-91-8213PszomdgaTfjmp fractures (3 sources)Compression fracture of thoracic spine; Translations: [Wedge compression fracture of T11-T12 vertebra, initial encounter for closed fracture] Onset: 11-30-2024 Resolved: 882099-65-4637QaikspeuOlwjq fractures (1 source)Stable burst fracture of T11-T12 vertebra, initial encounter for closed fracture; Translations: [T12 burst fracture (HCC)]Onset: 11-22-2024 EpisodicOther gastrointestinal disorders (3 sources)Diarrhea, unspecified; Translations: [Diarrhea, unspecified]Onset: 60-22-4466NuspkjdaAefai gastrointestinal disorders (20 sources)Ascites; Translations: [Other ascites]Onset: EpisodicOther gastrointestinal disorders (2 sources)Swollen abdomen; Translations: [Abdominal distension (gaseous)] 82-60-2398WtuhqgpiAfhkj gastrointestinal disorders (20 sources)Diarrhea; Translations: [Diarrhea, unspecified]Onset: 10-08-2024 Resolved: 769184-27-5239WoauqbrmIdhhl gastrointestinal disorders (3 sources)Fecal incontinence with fecal urgency; Translations: [Full incontinence of feces]Onset: 11-27-2024 Resolved: 947593-99-9549JmcuchgmZbbka injuries and conditions due to external causes (3 sources)History of fall; Translations: [History of falling]Onset: 11-28-2024 Resolved: 579751-81-3738NxcjhgujMufxp injuries and conditions due to external causes (3 sources)At risk for falls ; Translations: [History of falling]Onset: 11-28-2024 Resolved: 043086-73-5389IzkjacvrPxnjj liver diseases (20 sources)Hepatic encephalopathy; Translations: [Hepatic encephalopathy (HCC)] Onset: 928204-04-7170AgpqkfaaHjzrl liver diseases (20 sources)Decompensated cirrhosis of liver; Translations: [Hepatic failure, unspecified without coma]Onset: 564832-18-1207SokaqtqqBgmba liver diseases (1 source)Hepatic failure, unspecified without coma; Translations: [Decompensated cirrhosis (HCC)]Onset: 71-11-0304RhwjvltbSluey lower respiratory disease (20 sources)Dyspnea on exertion; Translations: [Other forms of dyspnea]Onset: 943988-67-1226LiarvfcbHsfyt lower respiratory disease (2 sources)Shortness of breath; Translations: [Shortness of breath]Onset: 44-37-8945OygxqglfRjvaa lower respiratory disease (2 sources)Other forms of dyspnea; Translations: [Other forms of dyspnea]Onset: 32-98-3367YtbsgjhkRwctj lower respiratory disease (20 sources)Chest pain on breathing; Translations: [Chest pain on breathing] Onset: 10-15-2024 Resolved: 678517-88-4814UyhvivshVftco lower respiratory disease (1 source)Dyspnea, unspecified; Translations: [Dyspnea, unspecified type]Onset: 44-04-3953KxwvcdkmXwaes nervous system disorders (20 sources)Postoperative pain ; Translations: [Other acute postprocedural pain] Onset: 09-10-2024 Resolved: 232857-69-6272FsndumbpSbipg non-epithelial cancer of skin (20 sources)Basal cell carcinoma of skin; Translations: [Basal cell carcinoma of skin, unspecified]Onset: 790078-15-6260JiwhqznfXypjo nutritional; endocrine; and metabolic disorders (20 sources)Abnormal weight loss; Translations: [Abnormal weight loss]Onset: 104258-11-4218OlnfnuhpDqxni screening for suspected conditions (not mental disorders or infectious disease) (8 sources)Patient encounter status; Translations: [Encounter for screening for malignant neoplasm of prostate]Onset: 696384-86-1573QhctkszrDorfu upper respiratory disease (1 source)Other diseases of bronchus, not elsewhere classified; Translations: [Bronchiolar disease]Onset: 14-06-4416LvvabovsMxyhrryvwhgs fracture (4 sources)Pathological fracture; Translations: [Pathological fracture, other site, initial encounter for fracture]Onset: 571171-93-1686WfpgvumyCmtksdpi codes; unclassified (20 sources)Insomnia; Translations: [Insomnia, unspecified]Onset: 11-17-2022 14-15-7443ZcwedrruYvqnhogy codes; unclassified (20 sources)Transient alteration of awareness; Translations: [Transient alteration of awareness]Onset: 233498-14-2242QrzmdfybCezhgnhj codes; unclassified (20 sources)H/O: endocrine disorder; Translations: [Personal history of other specified conditions]Onset: 642248-34-2929PhbkhicrYhisjkjonnw failure; insufficiency; arrest (adult) (3 sources)Acute respiratory failure; Translations: [Acute respiratory failure with hypoxia]Onset: 11-22-2024 Resolved: 575592-47-2271McoerlhjVqwjdhneo and history of mental health and substance abuse codes (20 sources)Tobacco use and exposure - finding; Translations: [Personal history of nicotine dependence]Onset: 591089-88-3797YvwxpqfoXjwfuoabwop; intervertebral disc disorders; other back problems (20 sources)Low back pain; Translations: [Low back pain, unspecified back pain laterality, unspecified chronicity, unspecified whether sciatica present]Onset: 245114-16-3859GjjpkdcnSuunqfcozjqu (1 source)Patient encounter bdzudn26-86-7147Kshozpfxmfpc (1 source)Awaiting transplantation of uucfl54-84-5335Kzpfn infection (20 sources)Cytomegalovirus infection; Translations: [Cytomegaloviral disease, unspecified]Onset: 417837-52-4044Uvzgbdfx Results Test NameValueInterpretationReference RangeFacilityCNPNon 14-58-4772CJYTZpclyz [facility] - AndersonCNPNon 56-82-5178HCZWCciyxtUygjbrrfi [facility] CNPTOUTREACHon 63-58-3777PFNPHASZCMITSqhkqwAjhrgkscj Clinic ClevelandCNPNon 97-19-1667BNJKNmgzvlXhjmswbqw Clinic ClevelandAFP SerPl-mCncon 36-84-3163WKF [Mass/Vol]1.38 ng/mLNormal<9.00[facility] - AndersonComment on above:Order Comment: Specimen Type: BLOOD SPECIMENOrdering Facility: [facility] Address:[address] [place], [place] [address]Result Comment: The Alpha-Fetoprotein test was performed using the Ryan Un[employer] DxI immunoenzymati c assay. Results obtained with different assay methods or kits cannot be used interchangeably.Performed By: #### 1834-1 ####[facility] LABCLIA [id number] [address] STATES OF AMERICAANES POSTPROC EVALon 83-17-1497NLGE POSTPROC EVALNormalClevelFormerly [facility]ow[facility] HospitalANES PRE-OPon 66-17-5764RODL PRE-OPNormalOur [facility] Of Mercy Hospital - AndersonCNCOon 02-10-2025 CNCOLetter TextNormalCWestern Reserve HospitalComprehensive metabolic 2000 panelon 43-52-6283Hgiiobj [Mass/Vol]3.3 g/dLLow3.9-4.9CWestern Reserve Hospital Comment on above:Order Comment: Specimen Type: BLOOD SPECIMENOrdering Facility: [facility] Address:[address] [place] [address] Performed By: #### 07766-8 ####[facility] LABCLIA [id number] [place] [address] [place] AMERICAALP [Catalytic activity/Vol]168 U/VNztl20-383TovrcainbTriHealth [facility]ull[facility] on above:Order Comment: Specimen Type: BLOOD SPECIMENOrdering Facility: [facility] Address:[address] [place], [place] [address]Performed By: #### 55121- 8 ####[facility] LABCLIA [id number] [place] [id number] [place] AMERICAALT [Catalytic activity/Vol]23 U/SDfcisz03-28 [facility] on above:Order Comment: Specimen Type: BLOOD SPECIMENOrdering Facility: [facility] Address:[address] [place], [place] [address]Performed By: #### 85399-8 ####[facility] LABCLIA [id number] [place] [address] [place] AMERICAAnion gap [Moles/Vol]12 mmol/LNormal8-15[facility] on above:Order Comment: Specimen Type: BLOOD SPECIMENOrdering Facility: [facility] Address:[address] [place], [place] [address]Performed By: #### 06429- 8 ####[facility] LABCLIA [id number] [place] [id number] [place] AMERICAAST [Catalytic activity/Vol]25 U/ZNdtrwf98-52 [facility] on above:Order Comment: Specimen Type: BLOOD SPECIMENOrdering Facility: [facility] Address:[address] [place], [place] [address]Performed By: #### 47147-7 ####[facility] LABCLIA [id number] [place] [address] [place] AMERICABilirubin [Mass/Vol]0.3 mg/dLNormal0.2-1.3CFostoria City Hospital on above:Order Comment: Specimen Type: BLOOD SPECIMENOrdering Facility: [facility] Address:[address] [place], [place] [address]Performed By: #### 25787- 8 ####[facility] LABCLIA [id number] [place] [address] [place] AMERICACalcium [Mass/Vol]9.5 mg/dLNormal8.5-10.2CFostoria City Hospital on above:Order Comment: Specimen Type: BLOOD SPECIMENOrdering Facility: [facility] Address:[address] [place], [place] [address]Performed By: #### 59567-8 ####[facility] LABCLIA [id number] [place] [address] [place] AMERICAChloride [Moles/Vol]99 mmol/TYkqugy78-161FmmvzdopgTriHealth McCullough-[facility] on above:Order Comment: Specimen Type: BLOOD SPECIMENOrdering Facility: [facility] Address:[address] [place], [place] [address]Performed By: #### 94386- 8 ####[facility] LABCLIA [id number] [place] [address] [place] AMERICACO2 [Moles/Vol]24 mmol/CUqnvuv49-51RekkdqavhTriHealth McCullough-Hy[facility] Hospital on above:Order Comment: Specimen Type: BLOOD SPECIMENOrdering Facility: [facility] Address:[address] [place], [place] [address]Performed By: #### 81215-2 ####[facility] LABCLIA [id number] [place] [address] [place] Creatinine [Mass/Vol]0.96 mg/dLNormal0.73-1.22[facility] on above:Order Comment: Specimen Type: BLOOD SPECIMENOrdering Facility: [facility] Address:[address] [place] [address] Performed By: #### 28712-7 ####[facility] LABCLIA [id number] [place] [address] [place] AMERICAeGFRcr SerPlBld CKD-EPI 528663 mL/min/1.73m???Normal>=60[facility] on above:Order Comment: Specimen Type: BLOOD SPECIMENOrdering Facility: [facility] Address:[address] [place], [place] [address]Result Comment: Estimated Glomerular Filtration Rate (eGFR) is calculated using the 2020 CKD-EPI cre atinine equation. This equation utilizes serum creatinine, sex, and age as parameters. The creatinine assay has traceable calibration to isotope dilution- mass spectrometry. Refer to KDIGO guidelines for clinical interpretation. In patients with unstable renal function, e.g. those with acute kidney injury, the eGFR may not accurately reflect actual GFR.Performed By: #### 47633-9 ####[facility] LABCLIA [id number] [place] [address] [place] AMERICAGlucose [Mass/Vol]125 mg/sJBcbi03-76VqzawnxlmTriHealth McCullough-[facility] on above:Order Comment: Specimen Type: BLOOD SPECIMENOrdering Facility: [facility] Address:[address] [place], [place] [address]Result Comment: The [place] [employer] (ADA) provides guidance for cutoff values for fasting glucose and random glucose. The ADA defines fasting as no caloric intake for at least 8 hours. Fasting plasma glucose results between 100 to 125 mg/dL indicate increased risk for diabetes (prediab etes).Fasting plasma glucose results greater than or equal to 126 mg/dL meet the criteria for diagnosis of diabetes. In the absence of unequivocal hyperglycemia, results should be confirmed by repeattesting. In a patient with classic symptoms of hyperglycemia or hyperglycemic crisis, random plasmaglucose results greater than or equal to 200 mg/dL meet the criteria for diagnosis of diabetes.Reference: Standards of Medical Care in Diabetes 2016, [employer] [place] [employer]. Diabetes Care. 2016.39(Suppl 1).Performed By: #### 02928-3 ####[facility] LABCLIA [id number] [place] [address] [place] AMERICAPotassium [Moles/Vol]6.0 mmol/LHigh3.7-5.1 [facility] on above:Order Comment: Specimen Type: BLOOD SPECIMENOrdering Facility: [facility] Address:[address] [place], [place] [address]Performed By: #### 83082-2 ####[facility] LABCLIA [id number] [place] [address] [place] AMERICAProtein [Mass/Vol]7.0 g/dLNormal6.3-8.0[facility] on above:Order Comment: Specimen Type: BLOOD SPECIMENOrdering Facility: [facility] Address:[address] [place], [place] [address]Performed By: #### 35983- 8 ####[facility] LABCLIA [id number] [place] [address] [place] AMERICASodium [Moles/Vol]135 mmol/DUgn554-712RtlgglpdjTriHealth McCullough-Hy[facility] Hospital on above:Order Comment: Specimen Type: BLOOD SPECIMENOrdering Facility: [facility] Address:[address] [place], [place] [address]Performed By: #### 90319-3 ####[facility] LABCLIA [id number] [place] [address] [place] AMERICAUrea nitrogen [Mass/Vol]36 mg/dLHigh9-24[facility] on above: Order Comment: Specimen Type: BLOOD SPECIMENOrdering Facility: [facility] Address:[address] [place], [place] [address]Performed By: #### 44119- 8 ####[facility] LABCLIA [id number] [place] [id number] [place] OF AMERICAERCPon 97-66-3273ZWCWFzxduiSgsynadec Clinic ClevelandHISGLENWOOD REGIONAL [facility] PHYSICALon 96-29-4771PVAAUFB PHYSICALNoMain Campus Medical CenterNURSING PROGon 03-09-2963GXJWWCW PROGNormalOur Lady Of Mercy Hospital - AndersonPT panel Coag (PPP)on 42-66-6992OKV Coag (PPP) [Relative time]1.0 {INR}Normal 0.9-1.3CFostoria City Hospital on above:Order Comment: Specimen Type: BLOOD SPECIMENOrdering Facility: [facility] Address:[address], [place] [address]Result Comment: Vitamin K Antagonist (VKA) Therapeutic Range: INR 2 to 3 (Target INR of 2.5)Note: For patients treated with VKA drugs, such as warfarin, the [employer] 2012 Guideline recommends a therapeutic INR range of 2 to 3 (target INR of 2.5). This recommendation includes high-risk patients with antiphospholipid syndrome with previous arterial or venous thromboembolism, current-generation mechanical or bioprosthetic aortic heart valve replacement.Note: Patients with mechanical aortic valve replacement and additional risk factors for thromboembolic events (atrialfibrillation, previous thromboembolism, LV dysfunction, hypercoagulable conditions) or an older generation mechanical AVR (i.e., ball in-Cage) or any mechanical MVR should have a INR therapeutic range of 2.5 to 3.5 (target INR of 3).Brandon GH, et al. Chest 2012, 141:7S-47SNishimura RA, et al. [facility] 2017, 70: 252-289Performed By: #### 89501-1 ####[facility] LABCLIA [id number] [place] [id number] [place] [facility] HOSPITALPT Coag (PPP) [Time]10.9 sNormal9.7-13.0[facility] on above:Order Comment: Specimen Type: BLOOD SPECIMENOrdering Facility: [facility] Address:[address] [place] [id number] By: #### 25431- 0 ####[facility] LABCLIA [id number] [address] STATES OF AMERICACNCOon 79-58-3979AKUGWttjrj TextNormalCWestern Reserve HospitalCB W Auto Differential panel (Bld)on 70-73-5812Vmwrsdwtg (Bld) [#/Vol]0.04 10*3/uLNormal<0.11CFostoria City Hospital on above:Order Comment: Specimen Type: BLOOD SPECIMENOrdering Facility: [facility] Address: [address] [place], [place] [address]Performed By: #### 41294-6 ####[facility] LABORATORYCLIA [id number] [place] [address] [place] AMERICABasophils/100 WBC (Bld)0.3 %NormalTriHealth McCullough-Hyde Memorial Hospital on above:Order Comment: Specimen Type: BLOOD SPECIMENOrdering Facility: [facility] Address: [address] [place], [place] [address]Performed By: #### 38919-0 ####[facility] LABORATORYCLIA [id number] [place] [address] [place] AMERICADifferential cell count method Nom (Bld)AutoNormalCFostoria City Hospital on above:Order Comment: Specimen Type: BLOOD SPECIMENOrdering Facility: [facility] Address: [address] [place], [place] [address]Performed By: #### 94081-5 ####[facility] LABORATORYCLIA [id number] [place] [address] [place] Eosinophils (Bld) [#/Vol]0.54 10*3/uLHigh<0.46[facility] on above:Order Comment: Specimen Type: BLOOD SPECIMENOrdering Facility: [facility] Address: [address] [place] [address] Performed By: #### 29356-5 ####[facility] LABORATORYCLIA [id number] [place] [id number] [place] AMERICAEosinophils/100 WBC (Bld)3.7 % [facility] on above:Order Comment: Specimen Type: BLOOD SPECIMENOrdering Facility: [facility] Address: [address] [place], [place] [address]Performed By: #### 65325-7 ####[facility] LABORATORYCLIA [id number] [place] [address] [place] AMERICAErythrocyte distribution width (RBC) [Ratio]20.1 %High11.5-15.0 [facility] on above:Order Comment: Specimen Type: BLOOD SPECIMENOrdering Facility: [facility] Address: [address] [place], [place] [address]Performed By: #### 78472-2 ####[facility] LABORATORYCLIA [id number] [place] [address] [place] AMERICAHematocrit (Bld) [Volume fraction]25.2 %Low39.0-51.0[facility] on above:Order Comment: Specimen Type: BLOOD SPECIMENOrdering Facility: [facility] Address: [address] [place], [place] [address]Performed By: #### 23178-9 ####[facility] LABORATORYCLIA [id number] [place] [address] [place] Hemoglobin (Bld) [Mass/Vol]7.9 g/dLLow13.0-17.0[facility] on above:Order Comment: Specimen Type: BLOOD SPECIMENOrdering Facility: [facility] Address: [address] [place] [address] Performed By: #### 78238-7 ####[facility] LABORATORYCLIA [id number] [place] [address] [place] AMERICAImmature granulocytes (Bld) [#/Vol]0.39 10*3/uLHigh<0.10[facility] on above:Order Comment: Specimen Type: BLOOD SPECIMENOrdering Facility: [facility] Address: [address] [place], [place] [address]Performed By: #### 20203-7 ####[facility] LABORATORYCLIA [id number] [place] [address] [place] AMERICAImmature granulocytes/100 WBC (Bld)2.7 %Normal [facility] on above:Order Comment: Specimen Type: BLOOD SPECIMENOrdering Facility: [facility] Address: [address] [place], [place] [address]Performed By: #### 52771-1 ####[facility] LABORATORYCLIA [id number] [place] [address] [place] [facility] MENTOR HOSPITALLymphocytes (Bld) [#/Vol]1.01 10*3/uLNormal1.00-4.00[facility] on above:Order Comment: Specimen Type: BLOOD SPECIMENOrdering Facility: [facility] Address: [address] [place], [place] [address]Performed By: #### 58071-0 ####[facility] LABORATORYCLIA [id number] [place] [address] [place] Lymphocytes/100 WBC (Bld)7.0 %NormalTriHealth McCullough-Hyde Memorial Hospital on above: Order Comment: Specimen Type: BLOOD SPECIMENOrdering Facility: [facility] Address: [address] [place], [place] [address]Performed By: #### 82397-1 ####[facility] LABORATORYCLIA [id number] [address]ETMCH (RBC) [Entitic mass]32.8 bzQchhln63.0-34.0[facility] on above:Order Comment: Specimen Type: BLOOD SPECIMENOrdering Facility: [facility] Address: [address] [place], [place] [address]Performed By: #### 24271-4 ####[facility] LABORATORYCLIA [id number] [place] [id number] [facility]ENT[facility] HOSPITALMCHC (RBC) [Mass/Vol]31.3 g/gJDqxyww52.5-36.0 [facility] on above:Order Comment: Specimen Type: BLOOD SPECIMENOrdering Facility: [facility] Address: [address] [place], [place] [address]Performed By: #### 74495-4 ####[facility] LABORATORYCLIA [id number] [address] (RBC) [Entitic vol]104.6 zSTros72.0-100.0Henry [facility] Hospitalveland Comment on above:Order Comment: Specimen Type: BLOOD SPECIMENOrdering Facility: [facility] Address: [address] [place], [place] [address]Performed By: #### 65442-6 ####[facility] LABORATORYCLIA [id number] [place] [address] [place] AMERICAMonocytes (Bld) [#/Vol] 0.73 10*3/uLNormal<0.87[facility] AndersonComeaton [facility] on above:Order Comment: Specimen Type: BLOOD SPECIMENOrdering Facility: [facility] Address: [address] [place], [place] [address]Performed By: #### 92620-0 ####[facility] LABORATORYCLIA [id number] [place] [id number] [place] AMERICAMonocytes/100 WBC (Bld)5.0 %NormalOur Lady Of Mercy Hospital - AndersonComment on above:Order Comment: Specimen Type: BLOOD SPECIMENOrdering Facility: [facility] Address: [address] [place], [place] [address]Performed By: #### 09860-6 ####[facility] LABORATORYCLIA [id number] [place] [id number] [place] AMERICANeutrophils (Bld) [#/Vol]11.82 10*3/uLHigh1.45-7.50[facility] AndersonComeaton [facility] on above:Order Comment: Specimen Type: BLOOD SPECIMENOrdering Facility: [facility] Address: [address] [place], [place] [address]Performed By: #### 50718-4 ####[facility] LABORATORYCLIA [id number] [place] [address] [place] Neutrophils/100 WBC (Bld)81.3 %NormalTriHealth McCullough-Hyde Memorial [facility] on above: Order Comment: Specimen Type: BLOOD SPECIMENOrdering Facility: [facility] Address: [address] [place], [place] [address]Performed By: #### 04859-4 ####KARINA LABORATORYCLIA [id number] [place] [id number] [place] OF AMERICANucleated RBC (Bld) [#/Vol] 10*3/uLNormal<0.01[facility] on above:Order Comment: Specimen Type: BLOOD SPECIMENOrdering Facility: [facility] Address: [address] [place], [place] [address]Performed By: #### 61752-7 ####KARINA LABORATORYCLIA [id number] [place] [address] [place] AMERICANucleated RBC/100 WBC (Bld) [Ratio]0.0 /100 WBCNormalCWestern Reserve HospitalComeaton rapids medical center on above:Order Comment: Specimen Type: BLOOD SPECIMENOrdering Facility: [facility] Ad dress: [address] [place], [place] [address]Performed By: #### 79089-8 ####KARINA LABORATORYCLIA [id number] [place] [id number] [place] AMERICAPlatelet mean volume (Bld) [Entitic vol]10.4 fLNormal 9.0-12.7CFostoria City Hospital on above:Order Comment: Specimen Type: BLOOD SPECIMENOrdering Facility: [facility] Address: [address] [place], [place] [address]Performed By: #### 61462-5 ####KARINA LABORATORYCLIA [id number] [place] [address] [place] AMERICAPlatelets (Bld) [#/Vol]128 10*3/nYIld582-980EfdlnyinjOur [facility] Of [facility] Comment on above:Order Comment: Specimen Type: BLOOD SPECIMENOrdering Facility: [facility] Address: [address] [place] [address]Tschimwgq By: #### 30793-7 ####KARINA LABORATORYCLIA [id number] [place] [id number] [place] AMERICARBC (Bld) [#/Vol]2.41 10*6/uLLow4.20-6.00[facility] on above:Order Comment: Specimen Type: BLOOD SPECIMENOrdering Facility: [facility] Address: [id number] [place], [place] [address]Performed By: #### 60432-5 ####[facility] LABORATORYCLIA [id number] [place] [address] [place] AMERICAWBC (Bld) [#/Vol]14.53 10*3/uLHigh3.70-11.00 [facility] on above:Order Comment: Specimen Type: BLOOD SPECIMENOrdering Facility: [facility] Address: [address] [place], [place] [address]Performed By: #### 14613-3 ####[facility] LABORATORYCLIA [id number] [place] [address] [place] AMERICACRP SerPl-mCncon 63-48-6439JVV [Mass/Vol]11.0 mg/dLHigh<0.9CFostoria City Hospital on above:Order Comment: Specimen Type: BLOOD SPECIMENOrdering Facility: [facility] Address: [address] [place], [place] [address]Performed By: #### 1988-5 ####[facility] LABORATORYCLIA [id number] [place] [address] [place] AMERICACYTOMEGALOVIRUS (CMV) DNA, QUANTITATIVE PCR, [facility] CENTERon 24-66-4981RWB DNA JESSICA+probe Qn (P)Not detectedNormalNot DetectedTriHealth McCullough-[facility] on above:Order Comment: Specimen Type: BLOOD SPECIMENOrdering Facility: [facility] Address: [address] [place] [address] Performed By: #### CMVQNT ####[facility] MAIN LABCLIA [id number] [place] [address] [place] AMERICAComprehensive metabolic 2000 panelon 98-36-2594Sjgawht [Mass/Vol]2.8 g/dLLow3.9-4.9CFostoria City Hospital on above:Order Comment: Specimen Type: BLOOD SPECIMENOrdering Facility: [facility] Address: [address] [place], [place] [address]Performed By: #### 20627-5 ####[facility] LABORATORYCLIA [id number] [place] [address] [place] AMERICAALP [Catalytic activity/Vol]161 U/VZxnd07-464CvftwnatfTriHealth McCullough-[facility] on above:Order Comment: Specimen Type: BLOOD SPECIMENOrdering Facility: [facility] Address: [address] [place] [address] Performed By: #### 74313-6 ####KARINA LABORATORYCLIA [id number] [place] [address] [place] AMERICAALT [Catalytic activity/Vol]20 U/JKwopqk77-40ZaotfclbvTriHealth McCullough-[facility] on above:Order Comment: Specimen Type: BLOOD SPECIMENOrdering Facility: [facility] Ad dress: [address] [place], [place] [address]Performed By: #### 74599-2 ####KARINA LABORATORYCLIA [id number] [place] [address] [place] AMERICAAnion gap [Moles/Vol]12 mmol/LNormal8-15[facility] on above:Order Comment: Specimen Type: BLOOD SPECIMENOrdering Facility: [facility] Address: [address] [place], [place] [address]Performed By: #### 56603-9 ####KARINA LABORATORYCLIA [id number] [place] [address] [place] AMERICAAST [Catalytic activity/Vol]26 U/UJuclbv93-33RhbkwtkgwTriHealth McCullough-[facility] on above:Order Comment: Specimen Type: BLOOD SPECIMENOrdering Facility: [facility] Address: [address] [place] [address] Performed By: #### 74465-0 ####KARINA LABORATORYCLIA [id number] [place] [address] [place] AMERICABilirubin [Mass/Vol]0.2 mg/dL Normal0.2-1.3CFostoria City Hospital on above:Order Comment: Specimen Type: BLOOD SPECIMENOrdering Facility: [facility] Ad dress: [address] [place], [place] [address]Performed By: #### 09845-1 ####KARINA LABORATORYCLIA [id number] [place] [address] [place] AMERICACalcium [Mass/Vol]8.9 mg/dLNormal8.5-10.2CFostoria City Hospital on above:Order Comment: Specimen Type: BLOOD SPECIMENOrdering Facility: [facility] Address: [address] [place], [place] [address]Performed By: #### 41062-1 ####KARINA LABORATORYCLIA [id number] [place] [address] [place] AMERICAChloride [Moles/Vol]97 mmol/DXuh20-292DcembglifTriHealth McCullough-[facility] on above:Order Comment: Specimen Type: BLOOD SPECIMENOrdering Facility: [facility] Address: [address] [place] [address] Performed By: #### 70677-7 ####KARINA LABORATORYCLIA [id number] [place] [address] [place] AMERICACO2 [Moles/Vol]22 mmol/LNormal 22-30[facility] on above:Order Comment: Specimen Type: BLOOD SPECIMENOrdering Facility: [facility] Address: [address] [place], [place] [address]Performed By: #### 14505-8 ####KARINA LABORATORYCLIA [id number] [place] [address] [place] AMERICACreatinine [Mass/Vol]1.14 mg/dLNormal0.73-1.22[facility] on above:Order Comment: Specimen Type: BLOOD SPECIMENOrdering Facility: [facility] Address: [address] [place], [place] [address]Performed By: #### 30667-6 ####KARINA LABORATORYCLIA [id number] [place] [address] [place] OF AMERICAeGFRcr SerPlBld CKD-EPI 046507 mL/min/1.73m???Normal>=60[facility] Comment on above:Order Comment: Specimen Type: BLOOD SPECIMENOrdering Facility: [facility] Address: [address] [place], [place] [address]Result Comment: Estimated Glomerular Filtration Rate (eGFR) is [...] accurately reflect actual GFR. Performed By: #### 56223-0 ####KARINA LABORATORYCLIA [id number] [place] [address] [place] AMERICAGlucose [Mass/Vol]99 mg/dL Lzwfwn13-23WpovfusdzTriHealth McCullough-[facility] on above:Order Comment: Specimen Type: BLOOD SPECIMENOrdering Facility: [facility] Ad dress: [address] [place], [place] [address]Result Comment: The [place] [employer] (ADA) provides guidance for cutoff [...] symptoms of hyperglycemia or hyperglycemic crisis, random plasmaglucose results greater than or equal to 200 mg/dL meet the criteria for diagnosis of diabetes.Reference: Standards of Medical Care in Diabetes 2016, [employer] [place] [employer]. Diabetes Care. 2016.39(Suppl 1). Performed By: #### 12023-0 ####KARINA LABORATORYCLIA [id number] [place] [address] [place] AMERICAPotassium [Moles/Vol]5.5 mmol/LHigh3.7-5.1CFostoria City Hospital on above:Order Comment: Specimen Type: BLOOD SPECIMENOrdering Facility: [facility] Address: [address] [place], [place] [address]Performed By: #### 01011-5 ####KARINA LABORATORYCLIA [id number] [place] [address] [place] AMERICAProtein [Mass/Vol]6.1 g/dLLow6.3-8.0[facility] on above:Order Comment: Specimen Type: BLOOD SPECIMENOrdering Facility: [facility] Address: [address] [place], [place] [address]Performed By: #### 84318-6 ####KARINA LABORATORYCLIA [id number] [place] [address] [place] AMERICASodium [Moles/Vol]131 mmol/OHiq657-598TjksypnvjTriHealth McCullough-[facility] on above:Order Comment: Specimen Type: BLOOD SPECIMENOrdering Facility: [facility] Address: [address] [place] [address] Performed By: #### 61164-3 ####KARINA LABORATORYCLIA [id number] [place] [address] [place] AMERICAUrea nitrogen [Mass/Vol]53 mg/dLHigh9-24[facility] on above:Order Comment: Specimen Type: BLOOD SPECIMENOrdering Facility: [facility] Ad dress: [address] [place], [place] [address]Performed By: #### 84116-4 ####KARINA LABORATORYCLIA [id number] [place] [address] [place] AMERICAGGT SerPl-cCncon 81-91-0130Rpcwd glutamyl transferase [Catalytic activity/Vol]91 U/MNyuu18-86HbnrljihnTriHealth [facility]ullough[facility] on above:Order Comment: Specimen Type: BLOOD SPECIMENOrdering Facility: [facility] Address: [address] [place] [address] Performed By: #### 2324-2 ####[facility] MA[facility] LABCLIA [id number] [place] [address] [place] AMERICAMagnesium SerPl-mCncon 13-57-0827Bwbucvpmy [Mass/Vol]1.9 mg/dLNormal1.7-2.3CWestern [facility] Hospital Comment on above:Order Comment: Specimen Type: BLOOD SPECIMENOrdering Facility: [facility] Address: [address] [place], [place] [address]Performed By: #### 02706-8 ####KARINA LABORATORYCLIA [id number] [place] [address] [place] AMERICANT-proBNP SerPl-mCncon 47-28-8268Hanlrzycakc peptide.B prohormone N-Terminal [Mass/Vol]440 pg/mLHigh <125[facility] on above:Order Comment: Specimen Type: BLOOD SPECIMENOrdering Facility: [facility] Address: [address] [place], [place] [address]Performed By: #### 51370-2 ####[facility] LABORATORYCLIA [id number] [place] [address] [place] AMERICANURSING PROGon 57-52-0694UOVRVRA PROGNormalOur [facility] Phosphate SerPl-mCncon 04-51-1639Leghkcacb [Mass/Vol]5.1 mg/dLHigh2.7-4.8 [facility] on above:Order Comment: Specimen Type: BLOOD SPECIMENOrdering Facility: [facility] Address: [address] [place], [place] [address]Performed By: #### 2777-1 ####[facility] LABORATORYCLIA [id number] [place] [address] [place] AMERICATacrolimus Bld-mCncon 51-05-0882Yojhkxgfxl (Bld) [Mass/Vol]6.3 ng/mL Normal5.0-20.0[facility] on above:Order Comment: Specimen Type: BLOOD SPECIMENOrdering Facility: [facility] Ad dress: [address] [place], [place] [address]Result Comment: Individualized target levels for a given [...] situation. Test performed by chemiluminescent immunoassay using [employer] i.Performed By: #### 81554-3 ####[facility] MAIN LABCLIA [id number] [place] [address] [place] CBC W Auto Differential panel (Bld)on 83-15-6997Wiawgbdct (Bld) [#/Vol]0.07 10*3/uLNormal<0.11CFostoria City Hospital on above:Order Comment: Specimen Type: BLOOD SPECIMENOrdering Facility: [facility] Address: [address] [place], [place] [address]Performed By: #### 68532-5 ####KARINA LABORATORYCLIA [id number] [place] [address] [place] AMERICABasophils/100 WBC (Bld)0.4 %[facility] on above:Order Comment: Specimen Type: BLOOD SPECIMENOrdering Facility: [facility] Address: [address] [place], [place] [address]Performed By: #### 18805-0 ####KARINA LABORATORYCLIA [id number] [place] [address] [place] AMERICADifferential cell count method Nom (Bld)AutoNormalClevelPremier Health Miami [facility] on above:Order Comment: Specimen Type: BLOOD SPECIMENOrdering Facility: [facility] Address: [address] [place], [place] [address]Performed By: #### 96759-9 ####KARINA LABORATORYCLIA [id number] [place] [address] [place] Eosinophils (Bld) [#/Vol]0.31 10*3/uLNormal<0.46[facility] Comment on above:Order Comment: Specimen Type: BLOOD SPECIMENOrdering Facility: [facility] Address: [address] [place], [place] [address]Performed By: #### 64058-3 ####KARINA LABORATORYCLIA [id number] [place] [address] [place] AMERICAEosinophils/100 WBC (Bld)1.6 %[facility] on above:Order Comment: Specimen Type: BLOOD SPECIMENOrdering Facility: [facility] Address: [address] [place], [place] [address]Performed By: #### 70735-3 ####KARINA LABORATORYCLIA [id number] [place] [address] [place] AMERICAErythrocyte distribution width (RBC) [Ratio] 20.2 %High11.5-15.0[facility] on above:Order Comment: Specimen Type: BLOOD SPECIMENOrdering Facility: [facility] Address: [address] [place], [place] [address]Performed By: #### 03785-5 ####KARINA LABORATORYCLIA [id number] [place] [address] [place] AMERICAHematocrit (Bld) [Volume fraction]24.9 %Low 39.0-51.0[facility] on above:Order Comment: Specimen Type: BLOOD SPECIMENOrdering Facility: [facility] Ad dress: [address] [place], [place] [address]Performed By: #### 81665-4 ####KARINA LABORATORYCLIA [id number] [place] [address] [place] AMERICAHemoglobin (Bld) [Mass/Vol]7.7 g/dLLow13.0-17.0[facility] on above:Order Comment: Specimen Type: BLOOD SPECIMENOrdering Facility: [facility] Address: [address] [place], [place] [address]Performed By: #### 90705-5 ####KARINA LABORATORYCLIA [id number] [place] [id number] [place] AMERICAImmature granulocytes (Bld) [#/Vol]0.83 10*3/uLHigh<0.10[facility] on above:Order Comment: Specimen Type: BLOOD SPECIMENOrdering Facility: [facility] Address: [address] [place], [place] [address]Performed By: #### 32796-7 ####KARINA LABORATORYCLIA [id number] [place] [address] [place] Immature granulocytes/100 WBC (Bld)4.2 %NormalTriHealth McCullough-Hyde Memorial [facility] on above:Order Comment: Specimen Type: BLOOD SPECIMENOrdering Facility: [facility] Address: [address] [place] [address] Performed By: #### 74700-3 ####KARINA LABORATORYCLIA [id number] [place] [address] [place] AMERICALymphocytes (Bld) [#/Vol]0.83 10*3/uLLow1.00-4.00[facility] on above:Order Comment: Specimen Type: BLOOD SPECIMENOrdering Facility: [facility] Address: [address] [place], [place] [address]Performed By: #### 85282-0 ####KARINA LABORATORYCLIA [id number] [place] [address] [place] AMERICALymphocytes/100 WBC (Bld)4.2 %NormalTriHealth McCullough-Hyde Memorial Hospital on above:Order Comment: Specimen Type: BLOOD SPECIMENOrdering Facility: [facility] Address: [address] [place], [place] [address]Performed By: #### 00969-3 ####KARINA LABORATORYCLIA [id number] [place] [id number] [facility] (RBC) [Entitic mass]32.2 lsYbesug27.0-34.0[facility] Comment on above:Order Comment: Specimen Type: BLOOD SPECIMENOrdering Facility: [facility] Address: [address] [place], [place] [address]Performed By: #### 89037-4 ####KARINA LABORATORYCLIA [id number] [place] [id number] [facility] (RBC) [Mass/Vol] 30.9 g/wDVbcsec82.5-36.0[facility] on above:Order Comment: Specimen Type: BLOOD SPECIMENOrdering Facility: [facility] Address: [address] [place], [place] [address]Performed By: #### 41596-0 ####KARINA LABORATORYCLIA [id number] [place] [address] [place] AMERICAMCV (RBC) [Entitic vol]104.2 eDGasm17.0-100.0 [facility] on above:Order Comment: Specimen Type: BLOOD SPECIMENOrdering Facility: [facility] Address: [address] [place], [place] [address]Performed By: #### 18998-4 ####KARINA LABORATORYCLIA [id number] [place] [address] [place] AMERICAMonocytes (Bld) [#/Vol]0.92 10*3/uLHigh<0.87[facility] Comment on above:Order Comment: Specimen Type: BLOOD SPECIMENOrdering Facility: [facility] Address: [address] [place], [place] [address]Performed By: #### 44199-8 ####KARINA LABORATORYCLIA [id number] [place] [id number] [place] AMERICAMonocytes/100 WBC (Bld) 4.7 %NormalTriHealth McCullough-Hyde Memorial Hospital on above:Order Comment: Specimen Type: BLOOD SPECIMENOrdering Facility: [facility] Ad dress: [address] [place], [place] [address]Performed By: #### 02228-3 ####KARINA LABORATORYCLIA [id number] [place] [address] [place] AMERICANeutrophils (Bld) [#/Vol]16.62 10*3/uLHigh1.45-7.50 [facility] on above:Order Comment: Specimen Type: BLOOD SPECIMENOrdering Facility: [facility] Address: [address] [place], [place] [address]Performed By: #### 70900-7 ####KARINA LABORATORYCLIA [id number] [place] [id number] [place] AMERICANeutrophils/100 WBC (Bld)84.9 %NormalTriHealth McCullough-Hyde Memorial Hospital on above:Order Comment: Specimen Type: BLOOD SPECIMENOrdering Facility: [facility] Address: [address] [place] [address] Performed By: #### 77199-9 ####KARINA LABORATORYCLIA [id number] [place] [id number] [place] AMERICANucleated RBC (Bld) [#/Vol] 10*3/uLNormal<0.01[facility] on above:Order Comment: Specimen Type: BLOOD SPECIMENOrdering Facility: [facility] Address: [address] [place], [place] [address]Performed By: #### 50310-2 ####KARINA LABORATORYCLIA [id number] [place] [address] [place] AMERICANucleated RBC/100 WBC (Bld) [Ratio]0.0 /100 WBCNormalCFostoria City Hospital on above:Order Comment: Specimen Type: BLOOD SPECIMENOrdering Facility: [facility] Ad dress: [address] [place], [place] [address]Performed By: #### 16616-9 ####KARINA LABORATORYCLIA [id number] [place] [id number] [place] AMERICAPlatelet mean volume (Bld) [Entitic vol]10.2 fLNormal 9.0-12.7CFostoria City Hospital on above:Order Comment: Specimen Type: BLOOD SPECIMENOrdering Facility: [facility] Address: [address] [place], [place] [address]Performed By: #### 83683-0 ####KARINA LABORATORYCLIA [id number] [place] [id number] [place] AMERICAPlatelets (Bld) [#/Vol]177 10*3/kGPvwrvl206-819UevgsridrOur Lady Of [facility] Comment on above:Order Comment: Specimen Type: BLOOD SPECIMENOrdering Facility: [facility] Address: [address] [place], [place] [address]Performed By: #### 16128-3 ####KARINA LABORATORYCLIA [id number] [place] [id number] [place] AMERICARBC (Bld) [#/Vol]2.39 10*6/uLLow4.20-6.00[facility] on above:Order Comment: Specimen Type: BLOOD SPECIMENOrdering Facility: [facility] Address: [address] [place] [address]Uqllyjhyp By: #### 27517-4 ####KARINA LABORATORYCLIA [id number] [place] [id number] [place] AMERICAWBC (Bld) [#/Vol]19.58 10*3/uLHigh3.70-11.00 [facility] on above:Order Comment: Specimen Type: BLOOD SPECIMENOrdering Facility: [facility] Address: [address] [place], [place] [address]Performed By: #### 63473-9 ####KARINA LABORATORYCLIA [id number] [place] [id number] [place] AMERICACRP SerPl-mCnc 16-85-2660MGM [Mass/Vol]9.7 mg/dLHigh<0.9CFostoria City Hospital on above:Order Comment: Specimen Type: BLOOD SPECIMENOrdering Facility: [facility] Address: [address] [place], [place] [address]Performed By: #### 1988-5 ####KARINA LABORATORYCLIA [id number] [place] [id number] [place] AMERICAComprehensive metabolic 2000 panelon 30-45-2925Icsdxuf [Mass/Vol]2.8 g/dLLow3.9-4.9CFostoria City Hospital on above:Order Comment: Specimen Type: BLOOD SPECIMENOrdering Facility: [facility] Ad dress: [address] [place] [address] 28932Codzrrbtt By: #### 55269-7 ####KARINA LABORATORYCLIA [id number] [place] [id number] [place] AMERICAALP [Catalytic activity/Vol]173 U/OXhow18-937DppojnlzcTriHealth McCullough-[facility] on above:Order Comment: Specimen Type: BLOOD SPECIMENOrdering Facility: [facility] Address: [address] [place] [address]70[address]Szpihbmur By: #### 55543-9 ####KARINA LABORATORYCLIA [id number] [place] [address] [place] AMERICAALT [Catalytic activity/Vol]20 U/FRpbqwc98-65UzymwmhnuOur Lady Of [facility] Comment on above:Order Comment: Specimen Type: BLOOD SPECIMENOrdering Facility: [facility] Address: [address] [place] [address] 66[address]Jmlhyjmmg By: #### 85773-8 ####KARINA LABORATORYCLIA [id number] [place] [address] [place] AMERICAAnion gap [Moles/Vol]10 mmol/LNormal8-15[facility] AndersonComment on above:Order Comment: Specimen Type: BLOOD SPECIMENOrdering Facility: [facility] Address: [address] [place] [address] 65[address]Wvupjngze By: #### 36393-4 ####KARINA LABORATORYCLIA [id number] [place] [address] [place] AMERICAAST [Catalytic activity/Vol]24 U/UMtgahk59-35 [facility] AndersonComment on above:Order Comment: Specimen Type: BLOOD SPECIMENOrdering Facility: [facility] Address: [address] [place] [address] 58[address]Cjecsmxks By: #### 99865-9 ####KARINA LABORATORYCLIA [id number] [place] [address] [place] AMERICABilirubin [Mass/Vol]0.2 mg/dLNormal0.2-1.3C[facility] Comment on above:Order Comment: Specimen Type: BLOOD SPECIMENOrdering Facility: [facility] Address: [address] [place] [address] 08591Mgxcsmilh By: #### 87708-9 ####KARINA LABORATORYCLIA [id number] [place] [address] [place] AMERICACalcium [Mass/Vol]8.9 mg/dLNormal8.5-10.2CWestern Reserve HospitalComeaton rapids medical center on above:Order Comment: Specimen Type: BLOOD SPECIMENOrdering Facility: [facility] Address: [address] [place] [address] 15259Dwbvetavp By: #### 81426-8 ####[facility] LABORATORYCLIA [id number] [place] [address] [place] AMERICAChloride [Moles/Vol]97 mmol/MVia47-200 [facility] on above:Order Comment: Specimen Type: BLOOD SPECIMENOrdering Facility: [facility] Address: [address] [place], [place] [address]Performed By: #### 81445-5 ####KARINA LABORATORYCLIA [id number] [place] [address] [place] AMERICACO2 [Moles/Vol]24 mmol/IWdoleg63-94NmmckrzigTriHealth McCullough-[facility] on above:Order Comment: Specimen Type: BLOOD SPECIMENOrdering Facility: [facility] Address: [address] [place] [address] Performed By: #### 66518-2 ####KARINA LABORATORYCLIA [id number] [place] [address] [place] AMERICACreatinine [Mass/Vol]0.98 mg/dLNormal0.73-1.22[facility] on above:Order Comment: Specimen Type: BLOOD SPECIMENOrdering Facility: [facility] Address: [address] [place], [place] [address]Performed By: #### [id number] ####KARINA LABORATORYCLIA [id number] [place] [address] [place] AMERICAeGFRcr SerPlBld CKD-EPI 599174 mL/min/1.73m??? Normal>=60[facility] on above:Order Comment: Specimen Type: BLOOD SPECIMENOrdering Facility: [facility] Ad dress: [address] [place], [place] [address]Result Comment: Estimated Glomerular Filtration Rate (eGFR) is calculated using the 2020 CKD-EPI cre atinine equation. This equation utilizes serum creatinine, sex, and age as parameters. The creatinine assay has traceable calibration to isotope dilution- mass spectrometry. Refer to KDIGO guidelines for clinical interpretation. In patients with unstable renal function, e.g. those with acute kidney injury, the eGFR may not accurately reflect actual GFR.Performed By: #### 62899-0 ####[facility] LABORATORYCLIA [id number] [place] [id number] [place] AMERICAGlucose [Mass/Vol]108 mg/uWUaox60-71WdsbwbfxgTriHealth [facility] on above:Order Comment: Specimen Type: BLOOD SPECIMENOrdering Facility: [facility] Address: [address] [place], [place] [address]Result Comment: The [place] [employer] (ADA) provides guidance for cutoff [...] unequivocal hyperglycemia, results should be confirmed by repeattesting. In a patient with classic symptoms of hyperglycemia or hyperglycemic crisis, random plasmaglucose results greater than or equal to 200 mg/dL meet the criteria for diagnosis of diabetes.Reference: Standards of Medical Care in Diabetes 2016, [employer] [place] [employer]. Diabetes Care. 2016.39(Suppl 1).Performed By: #### [id number] ####KARINA LABORATORYCLIA [id number] [place] [id number] [place] AMERICAPotassium [Moles/Vol]5.5 mmol/LHigh3.7-5.1CFostoria City Hospital on above:Order Comment: Specimen Type: BLOOD SPECIMENOrdering Facility: [facility] Address: [address] [place], [place] [address]Performed By: #### [id number] ####KARINA LABORATORYCLIA [id number] [place] [id number] [place] AMERICAProtein [Mass/Vol]6.0 g/dLLow6.3-8.0[facility] on above:Order Comment: Specimen Type: BLOOD SPECIMENOrdering Facility: [facility] Address: [address] [place] [id number] Performed By: #### [id number] ####KARINA LABORATORYCLIA [id number] [place] [address] [place] AMERICASodium [Moles/Vol]131 mmol/L Ohw494-484NvwzfedfjTriHealth [facility]ull[facility] on above:Order Comment: Specimen Type: BLOOD SPECIMENOrdering Facility: [facility] Ad dress: [address] [place] [id number] By: #### [id number] ####KARINA LABORATORYCLIA [id number] [place] [address] [place] AMERICAUrea nitrogen [Mass/Vol]43 mg/dLHigh9-24[facility] on above:Order Comment: Specimen Type: BLOOD SPECIMENOrdering Facility: [facility] Address: [address] [place] [id number] By: #### [id number] ####KARINA LABORATORYCLIA [id number] [place] [address] [place] AMERICAGGT SerPl-cCncon 38-63-7147Hyucc glutamyl transferase [Catalytic activity/Vol]94 U/L Rsvn81-04OckwmnzepTriHealth [facility]ull[facility] on above:Order Comment: Specimen Type: BLOOD SPECIMENOrdering Facility: [facility] Ad dress: [address] [place] [address] [id number] By: #### 2324-2 ####[facility] MA[facility] LABCLIA [id number] [place] [address] [place] AMERICAMagnesium SerPl-mCncon 40-88-8901Yykalgnox [Mass/Vol]1.7 mg/dLNormal1.7-2.3CFostoria City Hospital on above:Order Comment: Specimen Type: BLOOD SPECIMENOrdering Facility: [facility] Address: [address] [place], [place] [address]Performed By: #### [id number] ####KARINA LABORATORYCLIA [id number] [place] [id number] [place] AMERICANT-proBNP SerPl-mCncon 22-55-3746Uihezuzvomd peptide.B prohormone N-Terminal [Mass/Vol]363 pg/mLHigh<125[facility] on above:Order Comment: Specimen Type: BLOOD SPECIMENOrdering Facility: [facility] Address: [address] [place], [place] [address]Performed By: #### 14667-0 ####[facility] LABORATORYCLIA [id number] [place] [id number] [place] Phosphate SerPl-[facility] 19-93-1182Rumizlktr [Mass/Vol]4.6 mg/dLNormal2.7-4.8 [facility] on above:Order Comment: Specimen Type: BLOOD SPECIMENOrdering Facility: [facility] Address: [address] [place], [place] [address]Performed By: #### 2777-1 ####[facility] LABORATORYCLIA [id number] [place] [id number] [place] [facility] HOSPITALTacrolimus Bld-[facility] [id number] (Bld) [Mass/Vol]6.8 ng/mL Normal5.0-20.0[facility] on above:Order Comment: Specimen Type: BLOOD SPECIMENOrdering Facility: [facility] Ad dress: [address] [place], [place] [address]Result Comment: Individualized target levels for a given [...] situation. Test performed by chemiluminescent immunoassay using [employer].Performed By: #### 12888-3 ####[facility] MA[facility] LABCLIA [id number] [place] [id number] [place] CT LUMBAR SPINE WO IVCONon 01-24-2025* * *Final Report* * * DATE OF EXAM: Jan 24 2025 2:16PM [id number] - CT LUMBAR SPINE WO IVCON / PROCEDURE REASON: severe back pain, T12 burst fx s/p orif * * * * Physician Interpretation * * * * EXAMINATION: CT THORACIC SPINE WO IVCON, CT LUMBAR SPINE WO IVCON CLINICAL HISTORY: severe back pain, T12 burst fx s/p orif TECHNIQUE: Spiral, high resolution axial unenhanced images were obtained from the cervicothoracic junction to the sacrum with sagittal and coronal planar reconstructions. MQ: CTTLWO_3 CT Radiation dose: Integrated Dose-Length Product (DLP) for this visit = 503 mGy*cm. CT Dose Reduction Employed: Automated exposure control(AEC) and iterative recon COMPARISON: MR thoracic and lumbar spine 11/28/[address] chest abdomen pelvis 01/04/2025 RESULT: THORACIC: Counting reference: Cervicothoracic and lumbosacral junctions. Assume first thoracic rib is the T1 level. For the purposes of this report, L4-5 is considered the level of the iliac crest and assume there are 5 lumbar-type vertebrae. Anatomic variant: None. Alignment: Thoracic kyphosis centered at T12 Bone marrow / fracture: Diffuse osseous demineralization. Interval postoperative changes of partial T11 laminectomy, T12 laminectomy, and partial L1 laminectomy, and instrumented posterior spinal fusion of T8-L3 with bilateral transpedicular screws spanning all levels sparing T11 and T12, connecting to intervening posterior fusion rods. Redemonstrated severe compression fractures of T11 and T12 with mild 7 mm T11 and moderate 11 mm T12 bony retropulsion, similar to 11/28/2024 MRI. There is likely persistent residual T12 moderate canal narrowing despite posterior surgical decompression, as well as persistent moderate bilateral T11-12 and severe bilateral T12-L1 foraminal narrowing. Acute/subacute severe T8 compression fracture with 5 mm bony retropulsion resulting in moderate canal stenosis and moderate bilateral T7-8 and severe bilateral T8-9 foraminal stenosis, progressed from 01/04/2025. Mild likely subacute superior end plate compression deformity of T5 with associated sclerosis, 10% vertebral body height loss, and no significant bony retropulsion. Chronic moderate T7 superior endplate compression deformity with 25-50% vertebral body height loss and no substantial retropulsion. Thoracic soft tissues: Expected postoperative changes in the dorsal paraspinal soft tissues overlying the operative bed. Enteric tube in place. Moderate bilateral pleural effusions and RIGHT greater than LEFT subjacent atelectasis. Bibasilar linear scarring and diffuse bronchial/bronchiolar wall thickening. Canal and foramina: Multilevel canal and foraminal narrowing related to compression deformities as discussed above. No substantial canal narrowing at remaining thoracic levels Additional severe RIGHT T3-4 foraminal stenosis, RIGHT T9-10 foraminal narrowing, and moderate bilateral T10-11 foraminal narrowing related to facet and disc disease. LUMBAR: Counting reference: Cervicothoracic and lumbosacral junctions. Assume first thoracic rib is the T1 level. For the purposes of this report, L4-5 is considered the level of the iliac crest and assume there are 5 lumbar-type vertebrae. Anatomic variant: None. Alignment: Alignment is anatomic. Bone marrow / fracture: Sacral fractures discussed below. Subacute displaced fractures of the LEFT acetabulum and LEFT superior and inferior pubic ramus with associated bony callus formation. Redemonstrated prominent sclerosis of the LEFT femoral head. No new acute fracture in the lumbar spine. Paraspinal soft tissues: Expected postoperative changes in the dorsal paraspinal soft tissues overlying the operative bed. L1-L2: Canal and foramina are patent. L2-L3: Canal and foramina are patent L3-L4: Posterior disc bulge eccentric to the RIGHT. Mild facet arthropathy and ligamentum flavum hypertrophy. Mild canal stenosis. Mild RIGHT foraminal narrowing. LEFT neural foramen is patent. L4-L5: Diffuse disc bulge and mild facet arthropathy. Mild canal stenosis and mild bilateral subarticular narrowing. Patent neural foramina. L5-S1: No canal stenosis moderate facet arthropathy. Mild bilateral foraminal stenosis. Sacrum and iliac wings: Bony pelvic fractures discussed above. Prominent bony irregularity with vertical lucency and adjacent sclerosis likely reflecting evolving acute/subacute LEFT sacral insufficiency fracture, subtle bony irregularity and sclerosis in the RIGHT hemisacrum may reflect chronic healed sequela of prior insufficiency fracture. IMPRESSION: Interval postoperative changes of posterior surgical decompression at level of T11 and T12 superior compression fractures with stable bony retropulsion and height lo (more content not included)...CCFRadiology, Radiologist, - 01/24/2025 * * *Final Report* * * DATE OF EXAM: Jan 24 2025 2:16PM [id number] - CT LUMBAR SPINE WO IVCON / PROCEDURE REASON: severe back pain, T12 burst fx s/p orif * * * * Physician Interpretation * * * * EXAMINATION: CT THORACIC SPINE WO IVCON, CT LUMBAR SPINE WO IVCON CLINICAL HISTORY: severe back pain, T12 burst fx s/p orif TECHNIQUE: Spiral, high resolution axial unenhanced images were obtained from the cervicothoracic junction to the sacrum with sagittal and coronal planar reconstructions. MQ: CTTLWO_3 CT Radiation dose: Integrated Dose-Length Product (DLP) for this visit = 503 mGy*cm. CT Dose Reduction Employed: Automated exposure control(AEC) and iterative recon COMPARISON: MR thoracic and lumbar spine 11/28/[address] chest abdomen pelvis 01/04/2025 RESULT: THORACIC: Counting reference: Cervicothoracic and lumbosacral junctions. Assume first thoracic rib is the T1 level. For the purposes of this report, L4-5 is considered the level of the iliac crest and assume there are 5 lumbar-type vertebrae. Anatomic variant: None. Alignment: Thoracic kyphosis centered at T12 Bone marrow / fracture: Diffuse osseous demineralization. Interval postoperative changes of partial T11 laminectomy, T12 laminectomy, and partial L1 laminectomy, and instrumented posterior spinal fusion of T8-L3 with bilateral transpedicular screws spanning all levels sparing T11 and T12, connecting to intervening posterior fusion rods. Redemonstrated severe compression fractures of T11 and T12 with mild 7 mm T11 and moderate 11 mm T12 bony retropulsion, similar to 11/28/2024 MRI. There is likely persistent residual T12 moderate canal narrowing despite posterior surgical decompression, as well as persistent moderate bilateral T11-12 and severe bilateral T12-L1 foraminal narrowing. Acute/subacute severe T8 compression fracture with 5 mm bony retropulsion resulting in moderate canal stenosis and moderate bilateral T7-8 and severe bilateral T8-9 foraminal stenosis, progressed from 01/04/2025. Mild likely subacute superior end plate compression deformity of T5 with associated sclerosis, 10% vertebral body height loss, and no significant bony retropulsion. Chronic moderate T7 superior endplate compression deformity with 25-50% vertebral body height loss and no substantial retropulsion. Thoracic soft tissues: Expected postoperative changes in the dorsal paraspinal soft tissues overlying the operative bed. Enteric tube in place. Moderate bilateral pleural effusions and RIGHT greater than LEFT subjacent atelectasis. Bibasilar linear scarring and diffuse bronchial/bronchiolar wall thickening. Canal and foramina: Multilevel canal and foraminal narrowing related to compression deformities as discussed above. No substantial canal narrowing at remaining thoracic levels Additional severe RIGHT T3-4 foraminal stenosis, RIGHT T9-10 foraminal narrowing, and moderate bilateral T10-11 foraminal narrowing related to facet and disc disease. LUMBAR: Counting reference: Cervicothoracic and lumbosacral junctions. Assume first thoracic rib is the T1 level. For the purposes of this report, L4-5 is considered the level of the iliac crest and assume there are 5 lumbar-type vertebrae. Anatomic variant: None. Alignment: Alignment is anatomic. Bone marrow / fracture: Sacral fractures discussed below. Subacute displaced fractures of the LEFT acetabulum and LEFT superior and inferior pubic ramus with associated bony callus formation. Redemonstrated prominent sclerosis of the LEFT femoral head. No new acute fracture in the lumbar spine. Paraspinal soft tissues: Expected postoperative changes in the dorsal paraspinal soft tissues overlying the operative bed. L1-L2: Canal and foramina are patent. L2-L3: Canal and foramina are patent L3-L4: Posterior disc bulge eccentric to the RIGHT. Mild facet arthropathy and ligamentum flavum hypertrophy. Mild canal stenosis. Mild RIGHT foraminal narrowing. LEFT neural foramen is patent. L4-L5: Diffuse disc bulge and mild facet arthropathy. Mild canal stenosis and mild bilateral subarticular narrowing. Patent neural foramina. L5-S1: No canal stenosis moderate facet arthropathy. Mild bilateral foraminal stenosis. Sacrum and iliac wings: Bony pelvic fractures discussed above. Prominent bony irregularity with vertical lucency and adjacent sclerosis likely reflecting evolving acute/subacute LEFT sacral insufficiency fracture, subtle bony irregularity and sclerosis in the RIGHT hemisacrum may reflect chronic healed sequela of prior insufficiency fracture. IMPRESSION: Interval postoperative changes of posterior surgical decompression at level of T11 and T12 superior compression fractures with stable bony retropulsion and height loss and ins (more content not included)...[facility]* * *Final Report* * * * * * SEE BOTTOM OF REPORT FOR ADDENDED TEXT * * * DATE OF EXAM: Jan 24 2025 2:16PM [id number] - CT LUMBAR SPINE WO IVCON / PROCEDURE REASON: severe back pain, T12 burst fx s/p orif * * * * Physician Interpretation * * * * * * * * * * * * ORIGINAL REPORT * * * * * * * * EXAMINATION: CT THORACIC SPINE WO IVCON, CT LUMBAR SPINE WO IVCON CLINICAL HISTORY: severe back pain, T12 burst fx s/p orif TECHNIQUE: Spiral, high resolution axial unenhanced images were obtained from the cervicothoracic junction to the sacrum with sagittal and coronal planar reconstructions. MQ: CTTLWO_3 CT Radiation dose: Integrated Dose-Length Product (DLP) for this visit = 503 mGy*cm. CT Dose Reduction Employed: Automated exposure control(AEC) and iterative recon COMPARISON: MR thoracic and lumbar spine 11/28/[address] chest abdomen pelvis 01/04/2025 RESULT: THORACIC: Counting reference: Cervicothoracic and lumbosacral junctions. Assume first thoracic rib is the T1 level. For the purposes of this report, L4-5 is considered the level of the iliac crest and assume there are 5 lumbar-type vertebrae. Anatomic variant: None. Alignment: Thoracic kyphosis centered at T12 Bone marrow / fracture: Diffuse osseous demineralization. Interval postoperative changes of partial T11 laminectomy, T12 laminectomy, and partial L1 laminectomy, and instrumented posterior spinal fusion of T8-L3 with bilateral transpedicular screws spanning all levels sparing T11 and T12, connecting to intervening posterior fusion rods. Redemonstrated severe compression fractures of T11 and T12 with mild 7 mm T11 and moderate 11 mm T12 bony retropulsion, similar to 11/28/2024 MRI. There is likely persistent residual T12 moderate canal narrowing despite posterior surgical decompression, as well as persistent moderate bilateral T11-12 and severe bilateral T12-L1 foraminal narrowing. Acute/subacute severe T8 compression fracture with 5 mm bony retropulsion resulting in moderate canal stenosis and moderate bilateral T7-8 and severe bilateral T8-9 foraminal stenosis, progressed from 01/04/2025. Mild likely subacute superior end plate compression deformity of T5 with associated sclerosis, 10% vertebral body height loss, and no significant bony retropulsion. Chronic moderate T7 superior endplate compression deformity with 25-50% vertebral body height loss and no substantial retropulsion. Thoracic soft tissues: Expected postoperative changes in the dorsal paraspinal soft tissues overlying the operative bed. Enteric tube in place. Moderate bilateral pleural effusions and RIGHT greater than LEFT subjacent atelectasis. Bibasilar linear scarring and diffuse bronchial/bronchiolar wall thickening. Canal and foramina: Multilevel canal and foraminal narrowing related to compression deformities as discussed above. No substantial canal narrowing at remaining thoracic levels Additional severe RIGHT T3-4 foraminal stenosis, RIGHT T9-10 foraminal narrowing, and moderate bilateral T10-11 foraminal narrowing related to facet and disc disease. LUMBAR: Counting reference: Cervicothoracic and lumbosacral junctions. Assume first thoracic rib is the T1 level. For the purposes of this report, L4-5 is considered the level of the iliac crest and assume there are 5 lumbar-type vertebrae. Anatomic variant: None. Alignment: Alignment is anatomic. Bone marrow / fracture: Sacral fractures discussed below. Subacute displaced fractures of the LEFT acetabulum and LEFT superior and inferior pubic ramus with associated bony callus formation. Redemonstrated prominent sclerosis of the LEFT femoral head. No new acute fracture in the lumbar spine. Paraspinal soft tissues: Expected postoperative changes in the dorsal paraspinal soft tissues overlying the operative bed. L1-L2: Canal and foramina are patent. L2-L3: Canal and foramina are patent L3-L4: Posterior disc bulge eccentric to the RIGHT. Mild facet arthropathy and ligamentum flavum hypertrophy. Mild canal stenosis. Mild RIGHT foraminal narrowing. LEFT neural foramen is patent. L4-L5: Diffuse disc bulge and mild facet arthropathy. Mild canal stenosis and mild bilateral subarticular narrowing. Patent neural foramina. L5-S1: No canal stenosis moderate facet arthropathy. Mild bilateral foraminal stenosis. Sacrum and iliac wings: Bony pelvic fractures discussed above. Prominent bony irregularity with vertical lucency and adjacent sclerosis likely reflecting evolving acute/subacute LEFT sacral insufficiency fracture, subtle bony irregularity and sclerosis in the RIGHT hemisacrum may reflect chronic healed sequela of prior insufficiency fracture. IMPRESSION: Interval postoperative changes of posterior surgical decompression at level of T11 and T12 superior compression fractures with stable bony retropulsion and height loss and instrumented posterior fusion T8-L3. (more content not included)...[facility]CT [facility]25* * *Final Report* * * DATE OF EXAM: Jan 24 2025 2:16PM [id number] - CT THORACIC SPINE WO IVCON / PROCEDURE REASON: severe back pain, T12 burst fx s/p orif * * * * Physician Interpretation * * * * EXAMINATION: CT THORACIC SPINE WO IVCON, CT LUMBAR SPINE WO IVCON CLINICAL HISTORY: severe back pain, T12 burst fx s/p orif TECHNIQUE: Spiral, high resolution axial unenhanced images were obtained from the cervicothoracic junction to the sacrum with sagittal and coronal planar reconstructions. MQ: CTTLWO_3 CT Radiation dose: Integrated Dose-Length Product (DLP) for this visit = 503 mGy*cm. CT Dose Reduction Employed: Automated exposure control(AEC) and iterative recon COMPARISON: MR thoracic and lumbar spine 11/28/[address] chest abdomen pelvis 01/04/2025 RESULT: THORACIC: Counting reference: Cervicothoracic and lumbosacral junctions. Assume first thoracic rib is the T1 level. For the purposes of this report, L4-5 is considered the level of the iliac crest and assume there are 5 lumbar-type vertebrae. Anatomic variant: None. Alignment: Thoracic kyphosis centered at T12 Bone marrow / fracture: Diffuse osseous demineralization. Interval postoperative changes of partial T11 laminectomy, T12 laminectomy, and partial L1 laminectomy, and instrumented posterior spinal fusion of T8-L3 with bilateral transpedicular screws spanning all levels sparing T11 and T12, connecting to intervening posterior fusion rods. Redemonstrated severe compression fractures of T11 and T12 with mild 7 mm T11 and moderate 11 mm T12 bony retropulsion, similar to 11/28/2024 MRI. There is likely persistent residual T12 moderate canal narrowing despite posterior surgical decompression, as well as persistent moderate bilateral T11-12 and severe bilateral T12-L1 foraminal narrowing. Acute/subacute severe T8 compression fracture with 5 mm bony retropulsion resulting in moderate canal stenosis and moderate bilateral T7-8 and severe bilateral T8-9 foraminal stenosis, progressed from 01/04/2025. Mild likely subacute superior end plate compression deformity of T5 with associated sclerosis, 10% vertebral body height loss, and no significant bony retropulsion. Chronic moderate T7 superior endplate compression deformity with 25-50% vertebral body height loss and no substantial retropulsion. Thoracic soft tissues: Expected postoperative changes in the dorsal paraspinal soft tissues overlying the operative bed. Enteric tube in place. Moderate bilateral pleural effusions and RIGHT greater than LEFT subjacent atelectasis. Bibasilar linear scarring and diffuse bronchial/bronchiolar wall thickening. Canal and foramina: Multilevel canal and foraminal narrowing related to compression deformities as discussed above. No substantial canal narrowing at remaining thoracic levels Additional severe RIGHT T3-4 foraminal stenosis, RIGHT T9-10 foraminal narrowing, and moderate bilateral T10-11 foraminal narrowing related to facet and disc disease. LUMBAR: Counting reference: Cervicothoracic and lumbosacral junctions. Assume first thoracic rib is the T1 level. For the purposes of this report, L4-5 is considered the level of the iliac crest and assume there are 5 lumbar-type vertebrae. Anatomic variant: None. Alignment: Alignment is anatomic. Bone marrow / fracture: Sacral fractures discussed below. Subacute displaced fractures of the LEFT acetabulum and LEFT superior and inferior pubic ramus with associated bony callus formation. Redemonstrated prominent sclerosis of the LEFT femoral head. No new acute fracture in the lumbar spine. Paraspinal soft tissues: Expected postoperative changes in the dorsal paraspinal soft tissues overlying the operative bed. L1-L2: Canal and foramina are patent. L2-L3: Canal and foramina are patent L3-L4: Posterior disc bulge eccentric to the RIGHT. Mild facet arthropathy and ligamentum flavum hypertrophy. Mild canal stenosis. Mild RIGHT foraminal narrowing. LEFT neural foramen is patent. L4-L5: Diffuse disc bulge and mild facet arthropathy. Mild canal stenosis and mild bilateral subarticular narrowing. Patent neural foramina. L5-S1: No canal stenosis moderate facet arthropathy. Mild bilateral foraminal stenosis. Sacrum and iliac wings: Bony pelvic fractures discussed above. Prominent bony irregularity with vertical lucency and adjacent sclerosis likely reflecting evolving acute/subacute LEFT sacral insufficiency fracture, subtle bony irregularity and sclerosis in the RIGHT hemisacrum may reflect chronic healed sequela of prior insufficiency fracture. IMPRESSION: Interval postoperative changes of posterior surgical decompression at level of T11 and T12 superior compression fractures with stable bony retropulsion and height (more content not included)...CCFRadiology, Radiologist, - 01/24/2025 * * *Final Report* * * DATE OF EXAM: Jan 24 2025 2:16PM [facility]14 - CT THORACIC SPINE WO IVCON / PROCEDURE REASON: severe back pain, T12 burst fx s/p orif * * * * Physician Interpretation * * * * EXAMINATION: CT THORACIC SPINE WO IVCON, CT LUMBAR SPINE WO IVCON CLINICAL HISTORY: severe back pain, T12 burst fx s/p orif TECHNIQUE: Spiral, high resolution axial unenhanced images were obtained from the cervicothoracic junction to the sacrum with sagittal and coronal planar reconstructions. MQ: CTTLWO_3 CT Radiation dose: Integrated Dose-Length Product (DLP) for this visit = 503 mGy*cm. CT Dose Reduction Employed: Automated exposure control(AEC) and iterative recon COMPARISON: MR thoracic and lumbar spine 11/28/[address] chest abdomen pelvis 01/04/2025 RESULT: THORACIC: Counting reference: Cervicothoracic and lumbosacral junctions. Assume first thoracic rib is the T1 level. For the purposes of this report, L4-5 is considered the level of the iliac crest and assume there are 5 lumbar-type vertebrae. Anatomic variant: None. Alignment: Thoracic kyphosis centered at T12 Bone marrow / fracture: Diffuse osseous demineralization. Interval postoperative changes of partial T11 laminectomy, T12 laminectomy, and partial L1 laminectomy, and instrumented posterior spinal fusion of T8-L3 with bilateral transpedicular screws spanning all levels sparing T11 and T12, connecting to intervening posterior fusion rods. Redemonstrated severe compression fractures of T11 and T12 with mild 7 mm T11 and moderate 11 mm T12 bony retropulsion, similar to 11/28/2024 MRI. There is likely persistent residual T12 moderate canal narrowing despite posterior surgical decompression, as well as persistent moderate bilateral T11-12 and severe bilateral T12-L1 foraminal narrowing. Acute/subacute severe T8 compression fracture with 5 mm bony retropulsion resulting in moderate canal stenosis and moderate bilateral T7-8 and severe bilateral T8-9 foraminal stenosis, progressed from 01/04/2025. Mild likely subacute superior end plate compression deformity of T5 with associated sclerosis, 10% vertebral body height loss, and no significant bony retropulsion. Chronic moderate T7 superior endplate compression deformity with 25-50% vertebral body height loss and no substantial retropulsion. Thoracic soft tissues: Expected postoperative changes in the dorsal paraspinal soft tissues overlying the operative bed. Enteric tube in place. Moderate bilateral pleural effusions and RIGHT greater than LEFT subjacent atelectasis. Bibasilar linear scarring and diffuse bronchial/bronchiolar wall thickening. Canal and foramina: Multilevel canal and foraminal narrowing related to compression deformities as discussed above. No substantial canal narrowing at remaining thoracic levels Additional severe RIGHT T3-4 foraminal stenosis, RIGHT T9-10 foraminal narrowing, and moderate bilateral T10-11 foraminal narrowing related to facet and disc disease. LUMBAR: Counting reference: Cervicothoracic and lumbosacral junctions. Assume first thoracic rib is the T1 level. For the purposes of this report, L4-5 is considered the level of the iliac crest and assume there are 5 lumbar-type vertebrae. Anatomic variant: None. Alignment: Alignment is anatomic. Bone marrow / fracture: Sacral fractures discussed below. Subacute displaced fractures of the LEFT acetabulum and LEFT superior and inferior pubic ramus with associated bony callus formation. Redemonstrated prominent sclerosis of the LEFT femoral head. No new acute fracture in the lumbar spine. Paraspinal soft tissues: Expected postoperative changes in the dorsal paraspinal soft tissues overlying the operative bed. L1-L2: Canal and foramina are patent. L2-L3: Canal and foramina are patent L3-L4: Posterior disc bulge eccentric to the RIGHT. Mild facet arthropathy and ligamentum flavum hypertrophy. Mild canal stenosis. Mild RIGHT foraminal narrowing. LEFT neural foramen is patent. L4-L5: Diffuse disc bulge and mild facet arthropathy. Mild canal stenosis and mild bilateral subarticular narrowing. Patent neural foramina. L5-S1: No canal stenosis moderate facet arthropathy. Mild bilateral foraminal stenosis. Sacrum and iliac wings: Bony pelvic fractures discussed above. Prominent bony irregularity with vertical lucency and adjacent sclerosis likely reflecting evolving acute/subacute LEFT sacral insufficiency fracture, subtle bony irregularity and sclerosis in the RIGHT hemisacrum may reflect chronic healed sequela of prior insufficiency fracture. IMPRESSION: Interval postoperative changes of posterior surgical decompression at level of T11 and T12 superior compression fractures with stable bony retropulsion and height loss and i (more content not included)...[facility] CT THORACIC SPINE WO IVCON* * *Final Report* * * * * * SEE BOTTOM OF REPORT FOR ADDENDED TEXT * * * DATE OF EXAM: Jan 24 2025 2:16PM [facility] - CT THORACIC SPINE WO IVCON / PROCEDURE REASON: severe back pain, T12 burst fx s/p orif * * * * Physician Interpretation * * * * * * * * * * * * ORIGINAL REPORT * * * * * * * * EXAMINATION: CT THORACIC SPINE WO IVCON, CT LUMBAR SPINE WO IVCON CLINICAL HISTORY: severe back pain, T12 burst fx s/p orif TECHNIQUE: Spiral, high resolution axial unenhanced images were obtained from the cervicothoracic junction to the sacrum with sagittal and coronal planar reconstructions. MQ: CTTLWO_3 CT Radiation dose: Integrated Dose-Length Product (DLP) for this visit = 503 mGy*cm. CT Dose Reduction Employed: Automated exposure control(AEC) and iterative recon COMPARISON: MR thoracic and lumbar spine 11/28/[address] chest abdomen pelvis 01/04/2025 RESULT: THORACIC: Counting reference: Cervicothoracic and lumbosacral junctions. Assume first thoracic rib is the T1 level. For the purposes of this report, L4-5 is considered the level of the iliac crest and assume there are 5 lumbar-type vertebrae. Anatomic variant: None. Alignment: Thoracic kyphosis centered at T12 Bone marrow / fracture: Diffuse osseous demineralization. Interval postoperative changes of partial T11 laminectomy, T12 laminectomy, and partial L1 laminectomy, and instrumented posterior spinal fusion of T8-L3 with bilateral transpedicular screws spanning all levels sparing T11 and T12, connecting to intervening posterior fusion rods. Redemonstrated severe compression fractures of T11 and T12 with mild 7 mm T11 and moderate 11 mm T12 bony retropulsion, similar to 11/28/2024 MRI. There is likely persistent residual T12 moderate canal narrowing despite posterior surgical decompression, as well as persistent moderate bilateral T11-12 and severe bilateral T12-L1 foraminal narrowing. Acute/subacute severe T8 compression fracture with 5 mm bony retropulsion resulting in moderate canal stenosis and moderate bilateral T7-8 and severe bilateral T8-9 foraminal stenosis, progressed from 01/04/2025. Mild likely subacute superior end plate compression deformity of T5 with associated sclerosis, 10% vertebral body height loss, and no significant bony retropulsion. Chronic moderate T7 superior endplate compression deformity with 25-50% vertebral body height loss and no substantial retropulsion. Thoracic soft tissues: Expected postoperative changes in the dorsal paraspinal soft tissues overlying the operative bed. Enteric tube in place. Moderate bilateral pleural effusions and RIGHT greater than LEFT subjacent atelectasis. Bibasilar linear scarring and diffuse bronchial/bronchiolar wall thickening. Canal and foramina: Multilevel canal and foraminal narrowing related to compression deformities as discussed above. No substantial canal narrowing at remaining thoracic levels Additional severe RIGHT T3-4 foraminal stenosis, RIGHT T9-10 foraminal narrowing, and moderate bilateral T10-11 foraminal narrowing related to facet and disc disease. LUMBAR: Counting reference: Cervicothoracic and lumbosacral junctions. Assume first thoracic rib is the T1 level. For the purposes of this report, L4-5 is considered the level of the iliac crest and assume there are 5 lumbar-type vertebrae. Anatomic variant: None. Alignment: Alignment is anatomic. Bone marrow / fracture: Sacral fractures discussed below. Subacute displaced fractures of the LEFT acetabulum and LEFT superior and inferior pubic ramus with associated bony callus formation. Redemonstrated prominent sclerosis of the LEFT femoral head. No new acute fracture in the lumbar spine. Paraspinal soft tissues: Expected postoperative changes in the dorsal paraspinal soft tissues overlying the operative bed. L1-L2: Canal and foramina are patent. L2-L3: Canal and foramina are patent L3-L4: Posterior disc bulge eccentric to the RIGHT. Mild facet arthropathy and ligamentum flavum hypertrophy. Mild canal stenosis. Mild RIGHT foraminal narrowing. LEFT neural foramen is patent. L4-L5: Diffuse disc bulge and mild facet arthropathy. Mild canal stenosis and mild bilateral subarticular narrowing. Patent neural foramina. L5-S1: No canal stenosis moderate facet arthropathy. Mild bilateral foraminal stenosis. Sacrum and iliac wings: Bony pelvic fractures discussed above. Prominent bony irregularity with vertical lucency and adjacent sclerosis likely reflecting evolving acute/subacute LEFT sacral insufficiency fracture, subtle bony irregularity and sclerosis in the RIGHT hemisacrum may reflect chronic healed sequela of prior insufficiency fracture. IMPRESSION: Interval postoperative changes of posterior surgical decompression at level of T11 and T12 superior compression fractures with stable bony retropulsion and height loss and instrumented posterior fusion T8-L3 (more content not included)...[facility] Panel InformationOrdered By: Radiologist Radiology on [id number] [employer] Work Phone: No Panel Informationon [id number] Study observation (narrative)NOMS HealthcareTYPE + SCREENon [id number] [facility] on above:Order Comment: Specimen Type: BLOOD SPECIMENOrdering Facility: [facility] Address: [address] [place], [place] [address]Performed By: #### TSCR ####CC MAIN BLOOD BANKCLIA [id number] [address] [address] [facility]TUSKEGEERh Nom (Bld)PositiveNormalCFostoria City Hospital on above: Order Comment: Specimen Type: BLOOD SPECIMENOrdering Facility: [facility] Address: [address] [place], [place] [address]Performed By: #### TSCR ####CC MAIN BLOOD BANKCLIA [id number] [address] [address] [facility]–TUSKEGEETYPE AND SCREEN EXPIRATION 01/27/2025 23:59NormalCFostoria City Hospital on above:Order Comment: Specimen Type: BLOOD SPECIMENOrdering Facility: [facility] Address: [address] [place], [place] [address]Performed By: #### TSCR ####CC MAIN BLOOD BANKCLIA [id number] [address] [address] [facility]TUSKEGEEECG 12 leadon 01-22-2025 Ventricular Rate : 74 BPM Atrial Rate : 74 BPM P-R Interval : 126 ms QRS Duration : 86 ms Q-T Interval : 412 ms QTC Calculation(Bazett) : 457 ms Calculated P Webb : 21 degrees Calculated R Webb : 34 degrees Calculated T Webb : 26 degrees WARNING: INTERPRETATION OF THIS ECG, ALTHOUGH ATTEMPTED, MAY BE ADVERSELY AFFECTED BY DATA QUALITY SINUS RHYTHM WITH PREMATURE ATRIAL COMPLEXES LOW VOLTAGE QRS, CONSIDER PULMONARY DISEASE, PERICARDIAL EFFUSION, OR NORMAL VARIANT BORDERLINE ECG Confirmed by ABENA URENA MD ([id number]) on 01/22/2025 11:44:19 AM NAME : LOYD BLANDON PID : [id number] : 1955 Gender : Male Race : ORD : [id number] Procedure Date : Dec 25 2024 13:20:17 Edit Date : Jan 22 2025 11:47:18 Diagnosis: WARNING: INTERPRETATION OF THIS ECG, ALTHOUGH ATTEMPTED, MAY BE ADVERSELY AFFECTED BY DATA QUALITY SINUS RHYTHM WITH PREMATURE ATRIAL COMPLEXES LOW VOLTAGE QRS, CONSIDER PULMONARY DISEASE, PERICARDIAL EFFUSION, OR NORMAL VARIANT BORDERLINE ECG Confirmed by ABENA URENA MD ([id number]) on 01/22/2025 11:44:19 AM Test Reason : Chest Pain Location : 542 : G52NS G053- Overread By : ABENA URENA MD Edited By : ABENA URENA MD Referred By : PAUL SNOWDEN Acquired by : miraCCFRadiology, Radiologist, - 01/22/2025 Ventricular Rate : 74 BPM Atrial Rate : 74 BPM P-R Interval : 126 ms QRS Duration : 86 ms Q-T Interval : 412 ms QTC Calculation(Bazett) : 457 ms Calculated P Webb : 21 degrees Calculated R Webb : 34 degrees Calculated T Webb : 26 degrees WARNING: INTERPRETATION OF THIS ECG, ALTHOUGH ATTEMPTED, MAY BE ADVERSELY AFFECTED BY DATA QUALITY SINUS RHYTHM WITH PREMATURE ATRIAL COMPLEXES LOW VOLTAGE QRS, CONSIDER PULMONARY DISEASE, PERICARDIAL EFFUSION, OR NORMAL VARIANT BORDERLINE ECG Confirmed by ABENA URENA MD ([id number]) on 01/22/2025 11:44:19 AM NAME : LOYD BLANDON PID : [id number] : 1955 Gender : Male Race : ORD : [id number] Procedure Date : Dec 25 2024 13:20:17 Edit Date : Jan 22 2025 11:47:18 Diagnosis: WARNING: INTERPRETATION OF THIS ECG, ALTHOUGH ATTEMPTED, MAY BE ADVERSELY AFFECTED BY DATA QUALITY SINUS RHYTHM WITH PREMATURE ATRIAL COMPLEXES LOW VOLTAGE QRS, CONSIDER PULMONARY DISEASE, PERICARDIAL EFFUSION, OR NORMAL VARIANT BORDERLINE ECG Confirmed by ABENA URENA MD ([id number]) on 01/22/2025 11:44:19 AM Test Reason : Chest Pain Location : 542 : G52NS G053- Overread By : ABENA URENA MD Edited By : ABENA URENA MD Referred By : PAUL SNOWDEN Acquired by : EDDIE meyers [facility] HealthECG 12 leadOrdered By: Radiologist Radiology on [id number] [employer] Work Phone: ECG 12 leadon [id number] Rate : 81 BPM Atrial Rate : 81 BPM P-R Interval : 130 ms QRS Duration : 84 ms Q-T Interval : 368 ms QTC Calculation(Bazett) : 427 ms Calculated P Webb : 48 degrees Calculated R Webb : 38 degrees Calculated T Webb : 39 degrees NORMAL SINUS RHYTHM NORMAL ECG Confirmed by MD BYERS TAMANNA ([id number]) on 01/21/2025 4:07:28 PM NAME : LOYD BLANDON PID : [id number] : 1955 Gender : Male Race : ORD : [id number] Procedure Date : Dec 11 2024 00:36:31 Edit Date : Jan 21 2025 16:07:40 Diagnosis: NORMAL SINUS RHYTHM NORMAL ECG Confirmed by MD BYERS TAMANNA ([id number]) on 01/21/2025 4:07:28 PM Test Reason : Chest Pain Location : 542 : G52NS G053- Overread By : MD BYERS TAMANNA Edited By : MD BYERS TAMANNA Referred By : PAUL SNOWDEN Acquired by : [id number],CCFRadiology, Radiologist, MD - 01/21/2025 Ventricular Rate : 81 BPM Atrial Rate : 81 BPM P-R Interval : 130 ms QRS Duration : 84 ms Q-T Interval : 368 ms QTC Calculation(Bazett) : 427 ms Calculated P Webb : 48 degrees Calculated R Webb : 38 degrees Calculated T Webb : 39 degrees NORMAL SINUS RHYTHM NORMAL ECG Confirmed by MD BYERS TAMANNA ([id number]) on 01/21/2025 4:07:28 PM NAME : LOYD BLANDON PID : [id number] : 1955 Gender : Male Race : ORD : [id number] Procedure Date : Dec 11 2024 00:36:31 Edit Date : Jan 21 2025 16:07:40 Diagnosis: NORMAL SINUS RHYTHM NORMAL ECG Confirmed by MD BYERS TAMANNA ([id number]) on 01/21/2025 4:07:28 PM Test Reason : Chest Pain Location : 542 : G52NS G053- Overread By : MD BYERS TAMANNA Edited By : MD BYERS TAMANNA Referred By : PAUL SNOWDEN Acquired by : [id number], NOMS HealthcareVentricular Rate : 89 BPM Atrial Rate : 89 BPM P-R Interval : 132 ms QRS Duration : 82 ms Q-T Interval : 356 ms QTC Calculation(Bazett) : 433 ms Calculated P Webb : 34 degrees Calculated R Webb : 39 degrees Calculated T Webb : 42 degrees NORMAL SINUS RHYTHM NORMAL ECG Confirmed by MD BYERS TAMANNA ([id number]) on 01/21/2025 4:07:25 PM NAME : LOYD BLANDON PID : [id number] : 1955 Gender : Male Race : ORD : [id number] Procedure Date : Dec 10 2024 21:40:00 Edit Date : Jan 21 2025 16:07:36 Diagnosis: NORMAL SINUS RHYTHM NORMAL ECG Confirmed by MD BYERS TAMANNA ([id number]) on 01/21/2025 4:07:25 PM Test Reason : Chest Pain Location : 542 : G52NS G053- Overread By : MD BYERS TAMANNA Edited By : MD BYERS TAMANNA Referred By : PAUL SNOWDEN Acquired by : [id number],CCFRadiology, Radiologist, - 01/21/2025 Ventricular Rate : 89 BPM Atrial Rate : 89 BPM P-R Interval : 132 ms QRS Duration : 82 ms Q-T Interval : 356 ms QTC Calculation(Bazett) : 433 ms Calculated P Webb : 34 degrees Calculated R Webb : 39 degrees Calculated T Webb : 42 degrees NORMAL SINUS RHYTHM NORMAL ECG Confirmed by MD BYERS TAMANNA ([id number]) on 01/21/2025 4:07:25 PM NAME : LOYD BLANDON PID : [id number] : 1955 Gender : Male Race : ORD : [id number] Procedure Date : Dec 10 2024 21:40:00 Edit Date : Jan 21 2025 16:07:36 Diagnosis: NORMAL SINUS RHYTHM NORMAL ECG Confirmed by MD BYERS TAMANNA ([id number]) on 01/21/2025 4:07:25 PM Test Reason : Chest Pain Location : 542 : G52NS G053- Overread By : MD BYERS TAMANNA Edited By : MD BYERS TAMANNA Referred By : PAUL SNOWDEN Acquired by : [id number], NOMS HealthcareVentricular Rate : 93 BPM Atrial Rate : 93 BPM P-R Interval : 102 ms QRS Duration : 74 ms Q-T Interval : 338 ms QTC Calculation(Bazett) : 420 ms Calculated P Webb : 11 degrees Calculated R Webb : 24 degrees Calculated T Webb : 33 degrees SINUS RHYTHM WITH SHORT VT LOW VOLTAGE QRS, CONSIDER PULMONARY DISEASE, PERICARDIAL EFFUSION, OR NORMAL VARIANT NONSPECIFIC ST ABNORMALITY ABNORMAL ECG Confirmed by MD BYERS TAMANNA ([id number]) on 01/21/2025 4:07:23 PM NAME : LOYD BLANDON PID : [id number] : 1955 Gender : Male Race : ORD : [id number] Procedure Date : Dec 10 2024 18:13:30 Edit Date : Jan 21 2025 16:07:35 Diagnosis: SINUS RHYTHM WITH SHORT VT LOW VOLTAGE QRS, CONSIDER PULMONARY DISEASE, PERICARDIAL EFFUSION, OR NORMAL VARIANT NONSPECIFIC ST ABNORMALITY ABNORMAL ECG Confirmed by MD BYERS TAMANNA ([id number]) on 01/21/2025 4:07:23 PM Test Reason : AMET/B/p pt tense Location : 86 : G101 G101-1 Overread By : MD BYERS TAMANNA Edited By : MD BYERS TAMANNA Referred By : PAUL SNOWDEN Acquired by : ARNALDO BANERJEEFRadiology, RadiologistMD - 01/21/2025 Ventricular Rate : 93 BPM Atrial Rate : 93 BPM P-R Interval : 102 ms QRS Duration : 74 ms Q-T Interval : 338 ms QTC Calculation(Bazett) : 420 ms Calculated P Webb : 11 degrees Calculated R Webb : 24 degrees Calculated T Webb : 33 degrees SINUS RHYTHM WITH SHORT VT LOW VOLTAGE QRS, CONSIDER PULMONARY DISEASE, PERICARDIAL EFFUSION, OR NORMAL VARIANT NONSPECIFIC ST ABNORMALITY ABNORMAL ECG Confirmed by MD BYERS TAMANNA ([id number]) on 01/21/2025 4:07:23 PM NAME : JAMIALOYD PID : [id number] : 1955 Gender : Male Race : ORD : [id number] Procedure Date : Dec 10 2024 18:13:30 Edit Date : Jan 21 2025 16:07:35 Diagnosis: SINUS RHYTHM WITH SHORT VT LOW VOLTAGE QRS, CONSIDER PULMONARY DISEASE, PERICARDIAL EFFUSION, OR NORMAL VARIANT NONSPECIFIC ST ABNORMALITY ABNORMAL ECG Confirmed by MD BYERS TAMANNA ([id number]) on 01/21/2025 4:07:23 PM Test Reason : AMET/B/p pt tense Location : 86 : G101 G101-1 Overread By : MD BYERS TAMANNA Edited By : MD BYERS TAMANNA Referred By : PAUL SNOWDEN Acquired by : TYLER BANERJEE HealthcareVentricular Rate : 87 BPM Atrial Rate : 87 BPM P-R Interval : 136 ms QRS Duration : 84 ms Q-T Interval : 370 ms QTC Calculation(Bazett) : 445 ms Calculated P Webb : 26 degrees Calculated R Webb : 18 degrees Calculated T Webb : 17 degrees NORMAL SINUS RHYTHM LOW VOLTAGE QRS, CONSIDER PULMONARY DISEASE, PERICARDIAL EFFUSION, OR NORMAL VARIANT BORDERLINE ECG Confirmed by MD BYERS TAMANNA ([id number]) on 01/21/2025 4:07:21 PM NAME : LOYD BLANDON PID : [id number] : 1955 Gender : Male Race : ORD : [id number] Procedure Date : Dec 05 2024 13:16:21 Edit Date : Jan 21 2025 16:07:33 Diagnosis: NORMAL SINUS RHYTHM LOW VOLTAGE QRS, CONSIDER PULMONARY DISEASE, PERICARDIAL EFFUSION, OR NORMAL VARIANT BORDERLINE ECG Confirmed by MD BYERS TAMANNA ([id number]) on 01/21/2025 4:07:21 PM Test Reason : Chest Pain Location : 86 : G101 G101-01 Overread By : MD BYERS TAMANNA Edited By : MD BYERS TAMANNA Referred By : PAUL SNOWDEN Acquired by : JULIANNE GRIJALVACCFRadiology, Radiologist, - 01/21/2025 Ventricular Rate : 87 BPM Atrial Rate : 87 BPM P-R Interval : 136 ms QRS Duration : 84 ms Q-T Interval : 370 ms QTC Calculation(Bazett) : 445 ms Calculated P Webb : 26 degrees Calculated R Webb : 18 degrees Calculated T Webb : 17 degrees NORMAL SINUS RHYTHM LOW VOLTAGE QRS, CONSIDER PULMONARY DISEASE, PERICARDIAL EFFUSION, OR NORMAL VARIANT BORDERLINE ECG Confirmed by MD BYERS TAMANNA ([id number]) on 01/21/2025 4:07:21 PM NAME : LOYD BLANDON PID : [id number] : 1955 Gender : Male Race : ORD : [id number] Procedure Date : Dec 05 2024 13:16:21 Edit Date : Jan 21 2025 16:07:33 Diagnosis: NORMAL SINUS RHYTHM LOW VOLTAGE QRS, CONSIDER PULMONARY DISEASE, PERICARDIAL EFFUSION, OR NORMAL VARIANT BORDERLINE ECG Confirmed by MD BYERS TAMANNA ([id number]) on 01/21/2025 4:07:21 PM Test Reason : Chest Pain Location : 86 : G101 G101-01 Overread By : MD BYERS TAMANNA Edited By : MD BYERS TAMANNA Referred By : PAUL SNOWDEN Acquired by : JULIANNE GRIJALVA [facility]ITALBe[facility] 12 leadOrdered By: Radiologist Radiology on [id number] Work Phone: [facility] Work Phone: no Panel InformationOrdered By: Radiologist Radiology on [id number] Work Phone: cbc W Auto Differential panel (Bld)on 01-20-2025 Acanthocytes LM Ql (Bld)FewNormalCWestern Reserve HospitalComment on above: Order Comment: Specimen Type: BLOOD SPECIMENOrdering Facility: [facility] Address: [address] [place], [place] [address]Performed By: #### [id number] ####[facility] LABORATORYCLIA [id number] [place] [address] [place] AMERICAAnisocytosis Ql (Bld)Present [facility] on above:Order Comment: Specimen Type: BLOOD SPECIMENOrdering Facility: [facility] Address: [address] [place], [place] [address]Performed By: #### 75484-9 ####[facility] LABORATORYCLIA [id number] [place] [id number] [place] OF AMERICABasophils (Bld) [#/Vol]0.15 10*3/uLHigh<0.11CWestern [facility] Hospital Comment on above:Order Comment: Specimen Type: BLOOD SPECIMENOrdering Facility: [facility] Address: [address] [place], [place] [address]Performed By: #### [id number] ####[facility] LABORATORYCLIA [id number] [place] [address] [place] OF AMERICABasophils/100 WBC (Bld) 1.0 %[facility] on above:Order Comment: Specimen Type: BLOOD SPECIMENOrdering Facility: [facility] Ad dress: [address] [place], [place] [address]Performed By: #### [id number] ####[facility] LABORATORYCLIA [id number] [place] [address] [place] AMERICADifferential cell count method Nom (Bld)ManualNormal [facility] on above:Order Comment: Specimen Type: BLOOD SPECIMENOrdering Facility: [facility] Address: [address] [place], [place] [address]Performed By: #### 49923-3 ####[facility] LABORATORYCLIA [id number] [place] [address] [place] AMERICAEosinophils (Bld) [#/Vol]0.15 10*3/uLNormal<0.46[facility] on above:Order Comment: Specimen Type: BLOOD SPECIMENOrdering Facility: [facility] Address: [address] [place], [place] [address]Performed By: #### 22121-6 ####[facility] LABORATORYCLIA [id number] [place] [address] [place] Eosinophils/100 WBC (Bld)1.0 %NormalTriHealth McCullough-Hy[facility] on above: Order Comment: Specimen Type: BLOOD SPECIMENOrdering Facility: [facility] Address: [address] [place], [place] [address]Performed By: #### 46384-9 ####[facility] LABORATORYCLIA [id number] [place] [address] [place] AMERICAErythrocyte distribution width (RBC) [Ratio]19.9 %High11.5-15.0[facility] on above: Order Comment: Specimen Type: BLOOD SPECIMENOrdering Facility: [facility] Address: [address] [place], [place] [address]Performed By: #### 67090-2 ####[facility] LABORATORYCLIA [id number] [place] [address] [place] AMERICAHematocrit (Bld) [Volume fraction]25.6 %Low39.0-51.0[facility] on above:Order Comment: Specimen Type: BLOOD SPECIMENOrdering Facility: [facility] Address: [address] [place], [place] [address]Performed By: #### [id number] ####[facility] LABORATORYCLIA [id number] [place] [id number] [place] AMERICAHemoglobin (Bld) [Mass/Vol]8.1 g/dLLow13.0-17.0 [facility] on above:Order Comment: Specimen Type: BLOOD SPECIMENOrdering Facility: [facility] Address: [address] [place], [place] [address]Performed By: #### 86150-7 ####KARINA LABORATORYCLIA [id number] [place] [address] [place] AMERICALymphocytes (Bld) [#/Vol]0.91 10*3/uLLow1.00-4.00[facility] on above:Order Comment: Specimen Type: BLOOD SPECIMENOrdering Facility: [facility] Address: [address] [place], [place] [address]Performed By: #### 06830-8 ####KARINA LABORATORYCLIA [id number] [place] [address] [place] Lymphocytes/100 WBC (Bld)6.0 %NormalTriHealth McCullough-Hyde Memorial [facility] on above: Order Comment: Specimen Type: BLOOD SPECIMENOrdering Facility: [facility] Address: [address] [place], [place] [address]Performed By: #### 31506-1 ####KARINA LABORATORYCLIA [id number] [place] [address] [place] OF AMERICAMCH (RBC) [Entitic mass]32.4 gcEwshri76.0-34.0[facility] on above:Order Comment: Specimen Type: BLOOD SPECIMENOrdering Facility: [facility] Address: [address] [place], [place] [address]Performed By: #### 49181-7 ####KARINA LABORATORYCLIA [id number] [place] [address] [facility] HOSPITALMCHC (RBC) [Mass/Vol]31.6 g/eABaolzo04.5-36.0 [facility] on above:Order Comment: Specimen Type: BLOOD SPECIMENOrdering Facility: [facility] Address: [address] [place], [place] [address]Performed By: #### 06439-1 ####KARINA LABORATORYCLIA [id number] [place] [address] [facility]ESS HOSPITALMCV (RBC) [Entitic vol]102.4 bZKtik49.0-100.0[facility] Comment on above:Order Comment: Specimen Type: BLOOD SPECIMENOrdering Facility: [facility] Address: [address] [place], [place] [address]Performed By: #### 94807-4 ####KARINA LABORATORYCLIA [id number] [place] [address] [place] AMERICAMetamyelocytes/100 WBC (Bld)1.0 %[facility] HospitalCome[facility] on above:Order Comment: Specimen Type: BLOOD SPECIMENOrdering Facility: [facility] Address: [address] [place], [place] [address]Performed By: #### 73854-4 ####KARINA LABORATORYCLIA [id number] [place] [address] [place] AMERICAMonocytes (Bld) [#/Vol]0.30 10*3/uLNormal<0.87 [facility] AndersonComment on above:Order Comment: Specimen Type: BLOOD SPECIMENOrdering Facility: [facility] Address: [address] [place], [place] [address]Performed By: #### 92143-7 ####KARINA LABORATORYCLIA [id number] [place] [address] [place] AMERICAMonocytes/100 WBC (Bld)2.0 %[facility] on above:Order Comment: Specimen Type: BLOOD SPECIMENOrdering Facility: [facility] Address: [address] [place] [address] Performed By: #### 16609-9 ####KARINA LABORATORYCLIA [id number] [place] [address] [place] AMERICANeutrophils (Bld) [#/Vol]13.47 10*3/uLHigh1.45-7.50[facility] AndersonComment on above:Order Comment: Specimen Type: BLOOD SPECIMENOrdering Facility: [facility] Address: [address] [place], [place] [address]Performed By: #### 90921-8 ####KARINA LABORATORYCLIA [id number] [place] [address] [place] AMERICANeutrophils/100 WBC (Bld)89.0 %NormalTriHealth McCull[facility] on above:Order Comment: Specimen Type: BLOOD SPECIMENOrdering Facility: [facility] Address: [address] [place], [place] [address]Performed By: #### 85527-3 ####KARINA LABORATORYCLIA [id number] [place] [address] [place] AMERICANucleated RBC (Bld) [#/Vol]10*3/uLNormal<0.01[facility] Comment on above:Order Comment: Specimen Type: BLOOD SPECIMENOrdering Facility: [facility] Address: [address] [place], [place] [address]Performed By: #### 96223-5 ####KARINA LABORATORYCLIA [id number] [place] [address] [place] AMERICANucleated RBC/100 WBC (Bld) [Ratio]0.0 /100 WBCNormalCFostoria City Hospital on above:Order Comment: Specimen Type: BLOOD SPECIMENOrdering Facility: [facility] Address: [address] [place], [place] [address]Performed By: #### 50294-3 ####KARINA LABORATORYCLIA [id number] [place] [address] [place] OF AMERICAOvalocytes LM Ql (Bld)FewNormalCleveland Clinic ClevelandComment on above:Order Comment: Specimen Type: BLOOD SPECIMENOrdering Facility: [facility] Address: [address] [place], [place] [address]Performed By: #### 22271-7 ####KARINA LABORATORYCLIA [id number] [place] [address] [place] AMERICAPlatelet mean volume (Bld) [Entitic vol]10.6 fLNormal9.0-12.7ClevelOhioHealth Shelby Hospital Clewilson healthComeaton rapids medical center on above:Order Comment: Specimen Type: BLOOD SPECIMENOrdering Facility: [facility] Address: [address] [place], [place] [address]Performed By: #### 59059-5 ####KARINA LABORATORYCLIA [id number] [place] [address] [place] AMERICAPlatelets (Bld) [#/Vol]237 10*3/fCIzuqpu719-107RscncsuwhOur [facility] Of [facility] Comment on above:Order Comment: Specimen Type: BLOOD SPECIMENOrdering Facility: [facility] Address: [address] [place], [place] [address]Performed By: #### 34333-3 ####KARINA LABORATORYCLIA [id number] [place] [address] [place] AMERICAPlatelets Estimate (Bld) [#/Vol]AdequateNormalCleveland [facility] Community Memorial HospitalvelandComeaton rapids medical center on above:Order Comment: Specimen Type: BLOOD SPECIMENOrdering Facility: [facility] Address: [address] [place], [place] [address]Performed By: #### 63591-6 ####KARINA LABORATORYCLIA [id number] [place] [address] [place] AMERICAPolychromasia LM Ql (Bld)SlightNormalCleveland Formerly [facility] & [facility]idant Medical CenterComment on above:Order Comment: Specimen Type: BLOOD SPECIMENOrdering Facility: [facility] Address: [address] [place], [place] [address]Performed By: #### 13893-1 ####KARINA LABORATORYCLIA [id number] [place] [address] [place] AMERICARBC (Bld) [#/Vol]2.50 10*6/uLLow4.20-6.00[facility] Comment on above:Order Comment: Specimen Type: BLOOD SPECIMENOrdering Facility: [facility] Address: [address] [place], [place] [address]Performed By: #### 76157-9 ####KARINA LABORATORYCLIA [id number] [place] [address] [place] AMERICARED CELL MORPHReviewed: see results of individual morphologiesNoMain Campus Medical CenterComeaton rapids medical center on above:Order Comment: Specimen Type: BLOOD SPECIMENOrdering Facility: [facility] Address: [address] [place] [address] Performed By: #### 90326-2 ####KARINA LABORATORYCLIA [id number] [place] [address] [place] AMERICAWBC (Bld) [#/Vol]15.14 10*3/uL High3.70-11.00[facility] AndersonComment on above:Order Comment: Specimen Type: BLOOD SPECIMENOrdering Facility: [facility] Ad dress: [address] [place], [place] [address]Performed By: #### 53119-1 ####KARINA LABORATORYCLIA [id number] [place] [address] [place] AMERICAWBC Left Shift Ql (Bld)PresentNoMain Campus Medical CenterComment on above:Order Comment: Specimen Type: BLOOD SPECIMENOrdering Facility: [facility] Address: [address] [place], [place] [address]Performed By: #### 59914-8 ####KARINA LABORATORYCLIA [id number] [place] [address] [place] AMERICACCF CBC W AUTO DIFF BLDon 03-53-1354Caopsggro/100 WBC (Bld)1 %NOMS HealthcareCCF ACANTHOCYTES BLD QL SMEARFewNOIL HealthcareCCF ANISOCYTOSISPresentNOMS HealthcareCCF BASOPHILS # BLD AUTO0.15HighNINFSelect Specialty HospitalCCF DIFFERENTIAL METHOD BLDManualNOJefferson Memorial HospitalCCF EOSINOPHIL # BLD AUTO0.15NINFNOJefferson Memorial Hospital CCF LYMPHOCYTES # BLD AUTO0.91LowMercy hospital springfieldF META%1 %[facility] springfieldF MONOCYTES # BLD AUTO0.3NINFMercy hospital springfieldF NEUTROPHILS # BLD AUTO13.47High [facility] springfieldF NRBC # BLD AUTO<0.01NINorthcrest Medical Center NRBC/100 WBC BLD-RTO0/100 WBCFreeman Cancer Institute OVALOCYTES BLD QL SMEARFewMercy hospital springfieldF PLATELET # BLD [id number] Cancer Institute PMV BLD AUTO10.6 fL9.0 - 12.7 fLFreeman Cancer Institute POLYCHROMASIA BLD QL SMEARSlightFreeman Cancer Institute RED CELL MORPH Reviewed: see results of individual morphologiesFreeman Cancer Institute WBC # BLD AUTO15.14HighFreeman Cancer Institute WBC LEFT SHIFT BLD QL AUTOPresentSelect Specialty Hospital Eosinophils/100 WBC (Bld)1 %Select Specialty HospitalErythrocyte distribution width (RBC) [Ratio]19.9 %High11.5 - 15.0 %[facility] Specialty HospitalHematocrit (Bld) [Volume fraction] 25.6 %Low39.0 - 51.0 %[facility] Specialty HospitalHemoglobin (Bld) [Mass/Vol]8.1 g/dLLow13.0 - 17.0 g/dLSelect Specialty HospitalInterpretation and review of laboratory results AbnormalSelect Specialty HospitalLymphocytes/100 WBC (Bld)6 %[facility] HospitalH (RBC) [Entitic mass]32.4 pg26.0 - 34.0 pgLee's Summit HospitalHC (RBC) [Mass/Vol]31.6 g/dL 30.5 - 36.0 g/dLLee's Summit HospitalV (RBC) [Entitic vol]102.4 dSMala60.0 - 100.0 fLSelect Specialty HospitalMonocytes/100 WBC (Bld)2 %[facility] Specialty HospitalNeutrophils/100 WBC (Bld)89 %[facility] HealthcarePLATELET # BLD ESTAdequateNOJefferson Memorial HospitalRBC (Bld) [#/Vol]2.5 10*6/uLLow4.20 - 6.00 m/uLCASTLEVIEW HOSPITAL HealthcareSpecimen Type: BLOOD SPECIMEN [facility] Address: [address] [place] [address] Original Ordering Provider: DAVID BEYER [facility] SerPNorristown State Hospital on 69-82-6924MVR [Mass/Vol]17.1 mg/dLHigh<0.9CFostoria City Hospital on above:Order Comment: Specimen Type: BLOOD SPECIMENOrdering Facility: [facility] Address: [address] [place] [address] Performed By: #### 1988-5 ####KARINA LABORATORYCLIA [id number] [place] [address] [place] AMERICACYTOMEGALOVIRUS (CMV) DNA, QUANTITATIVE PCR, PLASMAon 99-30-6344CTL DNA JESSICA+probe Qn (P)Not detectedNormal Not DetectedTriHealth [facility]ull[facility] on above:Order Comment: Specimen Type: BLOOD SPECIMENOrdering Facility: [facility] Ad dress: [address] [place], [place] [id number] By: #### CMVQNT ####[facility] LABCLIA [id number] [facility] [id number] [place] [address] [place] AMERICAComprehensive metabolic 2000 panelon 94-39-9650Fjiwwnk [Mass/Vol]2.9 g/dLLow3.9-4.9ClevelFormerly [facility] Comment on above:Order Comment: Specimen Type: BLOOD SPECIMENOrdering Facility: [facility] Address: [address] [place], [place] [address]Performed By: #### 01641-9 ####KARINA LABORATORYCLIA [id number] [place] [address] [place] AMERICAALP [Catalytic activity/Vol]245 U/MKsev28-194WmdhumokeTriHealth McCullough-[facility] on above:Order Comment: Specimen Type: BLOOD SPECIMENOrdering Facility: [facility] Address: [address] [place], [place] [address]Performed By: #### 92224-5 ####[facility] LABORATORYCLIA [id number] [place] [address] [place] AMERICAALT [Catalytic activity/Vol]21 U/WWusyfc93-82 [facility] on above:Order Comment: Specimen Type: BLOOD SPECIMENOrdering Facility: [facility] Address: [address] [place], [place] [address]Performed By: #### 54565-6 ####KARINA LABORATORYCLIA [id number] [place] [address] [place] AMERICAAnion gap [Moles/Vol]9 mmol/LNormal8-15[facility] AndersonComeaton [facility] on above:Order Comment: Specimen Type: BLOOD SPECIMENOrdering Facility: [facility] Address: [address] [place] [address] Performed By: #### 76474-7 ####KARINA LABORATORYCLIA [id number] [place] [address] [place] AMERICAAST [Catalytic activity/Vol]27 U/YMigmhk42-79AhipippcrOur Lady Of Mercy Hospital - AndersonComment on above:Order Comment: Specimen Type: BLOOD SPECIMENOrdering Facility: [facility] Ad dress: [address] [place], [place] [address]Performed By: #### 78328-6 ####KARINA LABORATORYCLIA [id number] [place] [address] [place] AMERICABilirubin [Mass/Vol]0.3 mg/dLNormal0.2-1.3CWestern Reserve HospitalComeaton rapids medical center on above:Order Comment: Specimen Type: BLOOD SPECIMENOrdering Facility: [facility] Address: [address] [place], [place] [address]Performed By: #### 07736-7 ####KARINA LABORATORYCLIA [id number] [place] [address] [place] AMERICACalcium [Mass/Vol]8.7 mg/dLNormal8.5-10.2CWestern Reserve Hospital Comment on above:Order Comment: Specimen Type: BLOOD SPECIMENOrdering Facility: [facility] Address: [address] [place], [place] [address]Performed By: #### 64476-6 ####KARINA LABORATORYCLIA [id number] [place] [address] [place] AMERICAChloride [Moles/Vol]97 mmol/CMui11-017LobzldtpoTriHealth McCullough-[facility] on above:Order Comment: Specimen Type: BLOOD SPECIMENOrdering Facility: [facility] Address: [address] [place], [place] [address]Performed By: #### 53000-0 ####DEONROLF LABORATORYCLIA [id number] [place] [address] [place] AMERICACO2 [Moles/Vol]23 mmol/WAacsov49-63JdyalxwmvTriHealth McCullough-Hy[facility] on above:Order Comment: Specimen Type: BLOOD SPECIMENOrdering Facility: [facility] Address: [address] [place], [place] [address]Performed By: #### 02692-2 ####KARINA LABORATORYCLIA [id number] [place] [address] [place] AMERICACreatinine [Mass/Vol]0.97 mg/dLNormal0.73-1.22[facility] Comment on above:Order Comment: Specimen Type: BLOOD SPECIMENOrdering Facility: [facility] Address: [address] [place], [place] [address]Performed By: #### 92068-1 ####DEONROLF LABORATORYCLIA [id number] [place] [address] [place] AMERICAeGFRcr SerPlBld CKD-EPI 119675 mL/min/1.73m???Normal>=60[facility] on above: Order Comment: Specimen Type: BLOOD SPECIMENOrdering Facility: [facility] Address: [address] [place], [place] [address]Result Comment: Estimated Glomerular Filtration Rate (eGFR) is calculated using the 2020 CKD-EPI creatinine equation. This equation utilizes serum creatinine, sex, and age as parameters. The creatinine assay has traceable calibration to isotope dilution-mass spectrometry. Refer to KDIGO guidelines for clinical interpretation. In patients with unstable renal function, e.g. those with acute kidney injury, the eGFR may not accurately reflect actual GFR.Performed By: #### 70813-1 ####KARINA LABORATORYCLIA [id number] [place] [address] [place] AMERICAGlucose [Mass/Vol]89 mg/pKBodnml28-46QdndxmymzTriHealth McCullough-[facility] on above:Order Comment: Specimen Type: BLOOD SPECIMENOrdering Facility: [facility] Address: [address] [place], [place] [address]Result Comment: The [place] Diabetes [employer] (ADA) provides guidance for cutoff [...] symptoms of hyperglycemia or hyperglycemic crisis, random plasmaglucose results greater than or equal to 200 mg/dL meet the criteria for diagnosis of diabetes.Reference: Standards of Medical Care in Diabetes 2016, [employer] [place] [employer]. Diabetes Care. 2016.39(Suppl 1). Performed By: #### 52226-8 ####KARINA LABORATORYCLIA [id number] [place] [address] [place] AMERICAPotassium [Moles/Vol]5.3 mmol/LHigh3.7-5.1CFostoria City Hospital on above:Order Comment: Specimen Type: BLOOD SPECIMENOrdering Facility: [facility] Address: [address] [place], [place] [address]Performed By: #### 63925-5 ####KARINA LABORATORYCLIA [id number] [place] [address] [place] AMERICAProtein [Mass/Vol]6.0 g/dLLow6.3-8.0[facility] on above:Order Comment: Specimen Type: BLOOD SPECIMENOrdering Facility: [facility] Address: [address] [place], [place] [address]Performed By: #### 40259-7 ####KARINA LABORATORYCLIA [id number] [place] [address] [place] AMERICASodium [Moles/Vol]129 mmol/NHuc028-213CejhidggsTriHealth McCullough-[facility] on above:Order Comment: Specimen Type: BLOOD SPECIMENOrdering Facility: [facility] Address: [address] [place] [address] Performed By: #### 99566-1 ####KARINA LABORATORYCLIA [id number] [place] [address] [place] AMERICAUrea nitrogen [Mass/Vol]21 mg/dLNormal9-[facility] on above:Order Comment: Specimen Type: BLOOD SPECIMENOrdering Facility: [facility] Address: [address] [place], [place] [address]Performed By: #### 90959-0 ####KARINA LABORATORYCLIA [id number] [place] [address] [place] OF AMERICAECG 12 leadon 90-53-7024Eyoxwoyqtoh Rate : 110 BPM Atrial Rate : 110 BPM P-R Interval : 126 ms QRS Duration : 72 ms Q-T Interval : 346 ms QTC Calculation(Bazett) : 468 ms Calculated P Webb : 22 degrees Calculated R Webb : 27 degrees Calculated T Webb : 26 degrees SINUS TACHYCARDIA LOW VOLTAGE QRS, CONSIDER PULMONARY DISEASE, PERICARDIAL EFFUSION, OR NORMAL VARIANT BORDERLINE ECG Confirmed by ASHLEIGH MELENDEZ MD ([id number]) on 01/20/2025 10:55:23 PM NAME : LOYD BLANDON PID : [id number] : 1955 Gender : Male Race : ORD : [id number] Procedure Date : Nov 22 2024 02:09:31 Edit Date : Jan 20 2025 22:55:25 Diagnosis: SINUS TACHYCARDIA LOW VOLTAGE QRS, CONSIDER PULMONARY DISEASE, PERICARDIAL EFFUSION, OR NORMAL VARIANT BORDERLINE ECG Confirmed by ASHLEIGH MELENDEZ MD ([id number]) on 01/20/2025 10:55:23 PM Test Reason : Arrhythmia Location : 86 : G101 [id number] Overread By : ASHLEIGH MELENDEZ MD Edited By : ASHLEIGH MELENDEZ MD Referred By : PAUL SNOWDEN Acquired by : CROW CONNFRadiology, Radiologist, - 01/20/2025 Ventricular Rate : 110 BPM Atrial Rate : 110 BPM P-R Interval : 126 ms QRS Duration : 72 ms Q-T Interval : 346 ms QTC Calculation(Bazett) : 468 ms Calculated P Webb : 22 degrees Calculated R Webb : 27 degrees Calculated T Webb : 26 degrees SINUS TACHYCARDIA LOW VOLTAGE QRS, CONSIDER PULMONARY DISEASE, PERICARDIAL EFFUSION, OR NORMAL VARIANT BORDERLINE ECG Confirmed by ASHLEIGH MELENDEZ MD ([id number]) on 01/20/2025 10:55:23 PM NAME : LOYD BLANDON PID : [id number] : 1955 Gender : Male Race : ORD : [id number] Procedure Date : Nov 22 2024 02:09:31 Edit Date : Jan 20 2025 22:55:25 Diagnosis: SINUS TACHYCARDIA LOW VOLTAGE QRS, CONSIDER PULMONARY DISEASE, PERICARDIAL EFFUSION, OR NORMAL VARIANT BORDERLINE ECG Confirmed by ASHLEIGH MELENDEZ MD ([id number]) on 01/20/2025 10:55:23 PM Test Reason : Arrhythmia Location : 86 : G101 [id number] Overread By : ASHLEIGH MELENDEZ MD Edited By : ASHLEIGH MELENDEZ MD Referred By : PAUL SNOWDEN Acquired by : SUKHI CONN [facility] 12 leadOrdered By: Radiologist Radiology on 61-76-7340ALGE [employer] Work Phone: GGT SerPl-cCncon 64-00-3638Uqtcj glutamyl transferase [Catalytic activity/Vol]133 U/OHoln31-54SdwzrrpcsTriHealth McCullough-[facility] on above:Order Comment: Specimen Type: BLOOD SPECIMENOrdering Facility: [facility] Address: [address] [place] [address] Performed By: #### 2324-2 ####[facility] LABCLIA [id number] [place] [address] [place] Magnesium SerPl-mCncon 71-88-5228Cxfemrswp [Mass/Vol]1.6 mg/dLLow1.7-2.3 [facility] on above:Order Comment: Specimen Type: BLOOD SPECIMENOrdering Facility: [facility] Address: [address] [place], [place] [address]Performed By: #### 47501-4 ####[facility] LABORATORYCLIA [id number] [place] [address] [place] AMERICANT-proBNP SerPl-mCncon 23-34-4374Xpwqcjvlqui peptide.B prohormone N- Terminal [Mass/Vol]616 pg/mLHigh<125[facility]Comeaton [facility] on above: Order Comment: Specimen Type: BLOOD SPECIMENOrdering Facility: [facility] Address: [address] [place], [place] [address]Performed By: #### 79317-8 ####KARINA LABORATORYCLIA [id number] [place] [address] [place] AMERICAPhosphate SerPl-mCncon 06-46-2592Kgzroqenq [Mass/Vol]4.1 mg/dLNormal2.7-4.8CWestern [facility] Hospital Comment on above:Order Comment: Specimen Type: BLOOD SPECIMENOrdering Facility: [facility] Address: [address] [place], [place] [address]Performed By: #### 2777-1 ####[facility] LABORATORYCLIA [id number] [address] STATES OF [facility] MENTOR HOSPITALTacrolimus Bld-nc 44-96-7484Sdddghdijo (Bld) [Mass/Vol]8.6 ng/mLNormal5.0-20.0[facility] AndersonComeaton rapids [facility] on above:Order Comment: Specimen Type: BLOOD SPECIMENOrdering Facility: [facility] Address: [address] [place], [place] [address]Result Comment: Individualized target levels for a given [...] situation. Test performed by chemiluminescent immunoassay using [employer] i.Performed By: #### 16192-1 ####[facility] LABCLIA [id number] [facility] [place]44[place]NL[place], [place] [address] [place] AMERICACBC W Auto Differential panel (Bld)on 42-21-1042Mxxndhahxpuq Ql (Bld)PresentNormalCWestern [facility] Hospital Comment on above:Order Comment: Specimen Type: BLOOD SPECIMENOrdering Facility: [facility] Address: [address] [place], [place] [address]Performed By: #### 11161-9 ####KARINA LABORATORYCLIA [id number] [place] [address] [place] AMERICABasophils (Bld) [#/Vol] 0.00 10*3/uLNormal<0.11CWestern Reserve HospitalComeaton rapids medical center on above:Order Comment: Specimen Type: BLOOD SPECIMENOrdering Facility: [facility] Address: [address] [place], [place] [address]Performed By: #### 80796-6 ####KARINA LABORATORYCLIA [id number] [place] [id number] [place] AMERICABasophils/100 WBC (Bld)0.0 %NormalOur Lady Of Mercy Hospital - AndersonComment on above:Order Comment: Specimen Type: BLOOD SPECIMENOrdering Facility: [facility] Address: [address] [place], [place] [address]Performed By: #### 75118-3 ####KARINA LABORATORYCLIA [id number] [place] [address] [place] AMERICADifferential cell count method Nom (Bld)ManualNormalCWestern Reserve HospitalComeaton rapids medical center on above:Order Comment: Specimen Type: BLOOD SPECIMENOrdering Facility: [facility] Address: [address] [place], [place] [address]Performed By: #### 27205-6 ####KARINA LABORATORYCLIA [id number] [place] [address] [place] Eosinophils (Bld) [#/Vol]0.22 10*3/uLNormal<0.46[facility] Comment on above:Order Comment: Specimen Type: BLOOD SPECIMENOrdering Facility: [facility] Address: [address] [place], [place] [address]Performed By: #### 67303-8 ####KARINA LABORATORYCLIA [id number] [place] [address] [place] AMERICAEosinophils/100 WBC (Bld)2.0 %NormalTriHealth McCullough-Hyde Memorial [facility] on above:Order Comment: Specimen Type: BLOOD SPECIMENOrdering Facility: [facility] Address: [address] [place], [place] [address]Performed By: #### 02163-5 ####KARINA LABORATORYCLIA [id number] [place] [address] [place] AMERICAErythrocyte distribution width (RBC) [Ratio] 19.9 %High11.5-15.0[facility] on above:Order Comment: Specimen Type: BLOOD SPECIMENOrdering Facility: [facility] Address: [address] [place], [place] [address]Performed By: #### 47434-3 ####KARINA LABORATORYCLIA [id number] [place] [address] [place] AMERICAHematocrit (Bld) [Volume fraction]24.2 %Low 39.0-51.0[facility] [facility] on above:Order Comment: Specimen Type: BLOOD SPECIMENOrdering Facility: [facility] Ad dress: [address] [place], [place] [address]Performed By: #### 37090-5 ####KARINA LABORATORYCLIA [id number] [place] [id number] [place] OF AMERICAHemoglobin (Bld) [Mass/Vol]7.6 g/dLLow13.0-17.0[facility] on above:Order Comment: Specimen Type: BLOOD SPECIMENOrdering Facility: [facility] Address: [address] [place], [place] [address]Performed By: #### 16183-0 ####KARINA LABORATORYCLIA [id number] [place] [id number] [place] OF AMERICALymphocytes (Bld) [#/Vol]0.56 10*3/uLLow1.00-4.00[facility] on above:Order Comment: Specimen Type: BLOOD SPECIMENOrdering Facility: [facility] Address: [address] [place], [place] [address]Performed By: #### 67210-9 ####KARINA LABORATORYCLIA [id number] [place] [address] [place] Lymphocytes/100 WBC (Bld)3.0 %NormalTriHealth [facility] on above: Order Comment: Specimen Type: BLOOD SPECIMENOrdering Facility: [facility] Address: [address] [place], [place] [address]Performed By: #### 78732-3 ####KARINA LABORATORYCLIA [id number] [address] (RBC) [Entitic mass]31.4 bzIyjcow74.0-34.0[facility] on above:Order Comment: Specimen Type: BLOOD SPECIMENOrdering Facility: [facility] Address: [address] [place], [place] [address]Performed By: #### 94412-8 ####KARINA LABORATORYCLIA [id number] [address] (RBC) [Mass/Vol]31.4 g/qEMmpvsc17.5-36.0 [facility] on above:Order Comment: Specimen Type: BLOOD SPECIMENOrdering Facility: [facility] Address: [address] [place], [place] [address]Performed By: #### 60100-3 ####KARINA LABORATORYCLIA [id number] [address] (RBC) [Entitic vol]100.0 vWVvhnei97.0-100.0[facility] on above:Order Comment: Specimen Type: BLOOD SPECIMENOrdering Facility: [facility] Address: [address] [place], [place] [address]Performed By: #### 41704-0 ####KARINA LABORATORYCLIA [id number] [address] [facility] Metamyelocytes/100 WBC (Bld)2.0 %NormalTriHealth [facility] on above:Order Comment: Specimen Type: BLOOD SPECIMENOrdering Facility: [facility] Address: [address] [place] [address] Performed By: #### 65475-7 ####KARINA LABORATORYCLIA [id number] [place] [address] [place] AMERICAMonocytes (Bld) [#/Vol]0.89 10*3/uLHigh<0.87[facility] on above:Order Comment: Specimen Type: BLOOD SPECIMENOrdering Facility: [facility] Address: [address] [place], [place] [address]Performed By: #### 68379-8 ####KARINA LABORATORYCLIA [id number] [place] [address] [place] AMERICAMonocytes/100 WBC (Bld)8.0 %NormalTriHealth [facility] on above:Order Comment: Specimen Type: BLOOD SPECIMENOrdering Facility: [facility] Address: [address] [place], [place] [address]Performed By: #### 47918-8 ####KARINA LABORATORYCLIA [id number] [place] [address] [place] AMERICANeutrophils (Bld) [#/Vol]9.25 10*3/uLHigh1.45-7.50[facility] on above:Order Comment: Specimen Type: BLOOD SPECIMENOrdering Facility: [facility] Address: [address] [place], [place] [address]Performed By: #### 34354-4 ####KARINA LABORATORYCLIA [id number] [place] [address] [place] Neutrophils/100 WBC (Bld)83.0 %NormalTriHealth [facility] on above: Order Comment: Specimen Type: BLOOD SPECIMENOrdering Facility: [facility] Address: [address] [place], [place] [address]Performed By: #### 93944-5 ####KARINA LABORATORYCLIA [id number] [place] [id number] [place] AMERICANucleated RBC (Bld) [#/Vol] 10*3/uLNormal<0.01[facility] on above:Order Comment: Specimen Type: BLOOD SPECIMENOrdering Facility: [facility] Address: [address] [place], [place] [address]Performed By: #### 57748-3 ####KARINA LABORATORYCLIA [id number] [place] [address] [place] AMERICANucleated RBC/100 WBC (Bld) [Ratio]0.0 /100 WBCNormalCFostoria City Hospital on above:Order Comment: Specimen Type: BLOOD SPECIMENOrdering Facility: [facility] Ad dress: [address] [place], [place] [address]Performed By: #### 86389-8 ####KARINA LABORATORYCLIA [id number] [place] [address] [place] AMERICAOvalocytes LM Ql (Bld)FewNoalCFostoria City Hospital on above:Order Comment: Specimen Type: BLOOD SPECIMENOrdering Facility: [facility] Address: [address] [place], [place] [address]Performed By: #### 72618-7 ####KARINA LABORATORYCLIA [id number] [place] [address] [place] Platelet mean volume (Bld) [Entitic vol]10.3 fLNormal9.0-12.7CFostoria City Hospital on above:Order Comment: Specimen Type: BLOOD SPECIMENOrdering Facility: [facility] Address: [address] [place], [place] [address]Performed By: #### 90395-9 ####KARINA LABORATORYCLIA [id number] [place] [address] [place] Platelets (Bld) [#/Vol]278 10*3/gQPdbqvt286-544LlinkrgwyTriHealth [facility] on above:Order Comment: Specimen Type: BLOOD SPECIMENOrdering Facility: [facility] Address: [address] [place] [address] Performed By: #### 48457-8 ####KARINA LABORATORYCLIA [id number] [place] [address] [place] AMERICAPlatelets Estimate (Bld) [#/Vol]AdequateNormalCFostoria City Hospital on above:Order Comment: Specimen Type: BLOOD SPECIMENOrdering Facility: [facility] Address: [address] [place], [place] [address]Performed By: #### 74792-7 ####KARINA LABORATORYCLIA [id number] [place] [address] [place] AMERICAPolychromasia LM Ql (Bld)SlightNoalCFostoria City Hospital on above:Order Comment: Specimen Type: BLOOD SPECIMENOrdering Facility: [facility] Address: [address] [place], [place] [address]Performed By: #### 12657-4 ####KARINA LABORATORYCLIA [id number] [place] [address] [place] AMERICARBC (Bld) [#/Vol]2.42 10*6/uLLow4.20-6.00[facility] Comment on above:Order Comment: Specimen Type: BLOOD SPECIMENOrdering Facility: [facility] Address: [address] [place], [place] [address]Performed By: #### 60197-3 ####KARINA LABORATORYCLIA [id number] [place] [address] [place] AMERICARED CELL MORPHReviewed: see results of individual morphologiesPomerene Hospital on above:Order Comment: Specimen Type: BLOOD SPECIMENOrdering Facility: [facility] Address: [address] [place] [address] Performed By: #### 45932-0 ####KARINA LABORATORYCLIA [id number] [place] [address] [place] AMERICAVariant lymphocytes/100 WBC (Bld)2.0 %NormalTriHealth [facility] on above:Order Comment: Specimen Type: BLOOD SPECIMENOrdering Facility: [facility] Address: [address] [place], [place] [address]Performed By: #### 95667-6 ####KARINA LABORATORYCLIA [id number] [place] [id number] [place] AMERICAWBC (Bld) [#/Vol]11.14 10*3/uLHigh3.70-11.00 [facility] AndersonComment on above:Order Comment: Specimen Type: BLOOD SPECIMENOrdering Facility: [facility] Address: [address] [place], [place] [address]Performed By: #### 37160-6 ####KARINA LABORATORYCLIA [id number] [place] [address] [place] AMERICAWBC Left Shift Ql (Bld)PresentNormalCleveland Formerly [facility] Vidant Medical CenterComment on above:Order Comment: Specimen Type: BLOOD SPECIMENOrdering Facility: [facility] Address: [address] [place] [address] Performed By: #### 08614-9 ####KARINA LABORATORYCLIA [id number] [place] [address] [place] [facility]ITALCC NT-PROBNP [facility] HOSPITALon 45-68-6261Tcjlvccfdytdhm and review of laboratory resultsAbHillsdale Hospital Natriuretic peptide B (Bld) [Mass/Vol]1165 pg/mLHighNINF - 125 pg/mLNOMS HealthcareSpecimen Type: BLOOD SPECIMEN [facility] Address: [address] [place] [address] Original Ordering Provider: DAVID BRAVOUpper [facility] on 30-69-7086EYP [Mass/Vol]21.9 mg/dLHigh<0.9ClevelFormerly [facility]-Chow[facility] HospitalComeaton rapids medical center on above:Order Comment: Specimen Type: BLOOD SPECIMENOrdering Facility: [facility] Address: [address] [place] [address] Performed By: #### 1988-5 ####KARINA LABORATORYCLIA [id number] [place] [address] [place] AMERICAComprehensive metabolic 2000 panelon 01-77-6123Ibtqcvm [Mass/Vol]2.7 g/dLLow3.9-4.9CWestern [facility] Comment on above:Order Comment: Specimen Type: BLOOD SPECIMENOrdering Facility: [facility] Address: [address] [place], [place] [address]Performed By: #### 52243-3 ####KARINA LABORATORYCLIA [id number] [place] [address] [place] AMERICAALP [Catalytic activity/Vol]293 U/XDycz90-158YoccnwfjsTriHealth [facility] on above:Order Comment: Specimen Type: BLOOD SPECIMENOrdering Facility: [facility] Address: [address] [place] [address]Nrwinirpt By: #### 26690-7 ####KARINA LABORATORYCLIA [id number] [place] [address] [place] AMERICAALT [Catalytic activity/Vol]26 U/PZjgddd14-48 [facility] on above:Order Comment: Specimen Type: BLOOD SPECIMENOrdering Facility: [facility] Address: [address] [place], [place] [address]Performed By: #### 69184-8 ####KARINA LABORATORYCLIA [id number] [place] [address] [place] AMERICAAnion gap [Moles/Vol]9 mmol/LNormal8-15[facility] on above:Order Comment: Specimen Type: BLOOD SPECIMENOrdering Facility: [facility] Address: [address] [place] [address] Performed By: #### 74242-7 ####KARINA LABORATORYCLIA [id number] [place] [address] [place] AMERICAAST [Catalytic activity/Vol]28 U/IMuaish35-49BnrmirzjsTriHealth [facility] on above:Order Comment: Specimen Type: BLOOD SPECIMENOrdering Facility: [facility] Ad dress: [address] [place] [address]Bnwubavfp By: #### 21892-5 ####KARINA LABORATORYCLIA [id number] [place] [address] [place] AMERICABilirubin [Mass/Vol]0.3 mg/dLNormal0.2-1.3CFostoria City Hospital on above:Order Comment: Specimen Type: BLOOD SPECIMENOrdering Facility: [facility] Address: [address] [place] [address]Hlowogqyb By: #### 52558-8 ####KARINA LABORATORYCLIA [id number] [place] [id number] [place] AMERICACalcium [Mass/Vol]8.8 mg/dLNormal8.5-10.2CWestern [facility] Hospital Comment on above:Order Comment: Specimen Type: BLOOD SPECIMENOrdering Facility: [facility] Address: [address] [place], [place] [address]Performed By: #### 02404-8 ####KARINA LABORATORYCLIA [id number] [place] [address] [place] AMERICAChloride [Moles/Vol]101 mmol/IXuwbus05-240KwmovrpzuOur Lady Of Mercy Hospital - AndersonComment on above:Order Comment: Specimen Type: BLOOD SPECIMENOrdering Facility: [facility] Address: [address] [place], [place] [address]Performed By: #### 84494-9 ####KARINA LABORATORYCLIA [id number] [place] [address] [place] AMERICACO2 [Moles/Vol]28 mmol/LTgbzbb17-68SzazytqcsOur Lady Of Mercy Hospital - AndersonComment on above:Order Comment: Specimen Type: BLOOD SPECIMENOrdering Facility: [facility] Address: [address] [place], [place] [address]Performed By: #### 47539-7 ####KARINA LABORATORYCLIA [id number] [place] [id number] [place] AMERICACreatinine [Mass/Vol]0.84 mg/dLNormal0.73-1.22[facility] Comment on above:Order Comment: Specimen Type: BLOOD SPECIMENOrdering Facility: [facility] Address: [address] [place], [place] [address]Performed By: #### 90861-2 ####KARINA LABORATORYCLIA [id number] [place] [id number] [place] AMERICAeGFRcr SerPlBld CKD-EPI 782694 mL/min/1.73m???Normal>=60[facility] - AndersonComment on above: Order Comment: Specimen Type: BLOOD SPECIMENOrdering Facility: [facility] Address: [address] [place], [place] [address]Result Comment: Estimated Glomerular Filtration Rate (eGFR) is calculated using the 2020 CKD-EPI creatinine equation. This equation utilizes serum creatinine, sex, and age as parameters. The creatinine assay has traceable calibration to isotope dilution-mass spectrometry. Refer to KDIGO guidelines for clinical interpretation. In patients with unstable renal function, e.g. those with acute kidney injury, the eGFR may not accurately reflect actual GFR.Performed By: #### 63993-5 ####KARINA LABORATORYCLIA [id number] [place] [address] [place] AMERICAGlucose [Mass/Vol]83 mg/dYVheinb60-36QxjwdwlzgTriHealth [facility] on above:Order Comment: Specimen Type: BLOOD SPECIMENOrdering Facility: [facility] Address: [address] [place], [place] [address]Result Comment: The [place] [employer] (ADA) provides guidance for cutoff [...] symptoms of hyperglycemia or hyperglycemic crisis, random plasmaglucose results greater than or equal to 200 mg/dL meet the criteria for diagnosis of diabetes.Reference: Standards of Medical Care in Diabetes 2016, [place] [employer]. Diabetes Care. 2016.39(Suppl 1). Performed By: #### 50388-9 ####KARINA LABORATORYCLIA [id number] [place] [id number] [place] AMERICAPotassium [Moles/Vol]5.0 mmol/LNormal3.7-5.1CFostoria City Hospital on above:Order Comment: Specimen Type: BLOOD SPECIMENOrdering Facility: [facility] Address: [address] [place], [place] [address]Performed By: #### 30150-2 ####KARINA LABORATORYCLIA [id number] [place] [address] [place] AMERICAProtein [Mass/Vol]6.0 g/dLLow6.3-8.0[facility] AndersonComeaton rapids medical center on above:Order Comment: Specimen Type: BLOOD SPECIMENOrdering Facility: [facility] Address: [address] [place], [place] [address]Performed By: #### 23127-0 ####KARINA LABORATORYCLIA [id number] [place] [address] [place] AMERICASodium [Moles/Vol]138 mmol/DFzjikj166-979JxpptygvsOur Lady Of [facility]cy [facility] Comment on above:Order Comment: Specimen Type: BLOOD SPECIMENOrdering Facility: [facility] Address: [address] [place], [place] [address]Performed By: #### 56447-6 ####[facility] LABORATORYCLIA [id number] [place] [address] [place] AMERICAUrea nitrogen [Mass/Vol]19 mg/dLNormal9-24[facility] on above:Order Comment: Specimen Type: BLOOD SPECIMENOrdering Facility: [facility] Address: [address] [place], [place] [address]Performed By: #### 94817-9 ####KARINA LABORATORYCLIA [id number] [place] [address] [place] AMERICAGGT SerPl-cCncon 68-07-9297Vrtry glutamyl transferase [Catalytic activity/Vol]157 U/GBays18-82TvczdhbriOur Lady Of [facility] Comment on above:Order Comment: Specimen Type: BLOOD SPECIMENOrdering Facility: [facility] Address: [address] [place], [place] [address]Performed By: #### 2324-2 ####[facility] LABCLIA [id number] [place] [id number] [place] Magnesium SerPl-mCncon 67-63-9068Hmkzcoeek [Mass/Vol]1.6 mg/dLLow1.7-2.3 [facility] on above:Order Comment: Specimen Type: BLOOD SPECIMENOrdering Facility: [facility] Address: [address] [place], [place] [address]Performed By: #### 92647-9 ####KARINA LABORATORYCLIA [id number] [place] [address] [place] AMERICANT-proBNP SerPl-mCncon 26-16-9244Rnzvqfwgohu peptide.B prohormone N- Terminal [Mass/Vol]1165 pg/mLHigh<125[facility] AndersonComeaton rapids [facility] on above: Order Comment: Specimen Type: BLOOD SPECIMENOrdering Facility: [facility] Address: [address] [place], [place] [address]Performed By: #### 46599-4 ####KARINA LABORATORYCLIA [id number] [place] [address] [place] AMERICAPhosphate SerPl-mCncon 63-05-4629Qydlqceya [Mass/Vol]4.4 mg/dLNormal2.7-4.8CWestern [facility] Comment on above:Order Comment: Specimen Type: BLOOD SPECIMENOrdering Facility: [facility] Address: [address] [place], [place] [address]Performed By: #### 2777-1 ####KARINA LABORATORYCLIA [id number] [place] [address] [place] AMERICATacrolimus Bld-mCncon 76-57-2930Abmlbbjftd (Bld) [Mass/Vol]10.9 ng/mLNormal5.0-20.0[facility] on above:Order Comment: Specimen Type: BLOOD SPECIMENOrdering Facility: [facility] Address: [address] [place], [place] [address]Result Comment: Individualized target levels for a given [...] situation. Test performed by chemiluminescent immunoassay using [employer] i.Performed By: #### 89194-5 ####[facility] LABCLIA [id number] [facility] Q30NFGESRSQX, [place] [address] [place] AMERICACBC W Auto Differential panel (Bld)on 34-95-6374Wlovmbfaqiev Ql (Bld)PresentNormalC[facility] Comment on above:Order Comment: Specimen Type: BLOOD SPECIMENOrdering Facility: [facility] Address: [address] [place], [place] [address]Performed By: #### 18310-6 ####KARINA LABORATORYCLIA [id number] [place] [address] [place] AMERICABasophils (Bld) [#/Vol] 0.00 10*3/uLNormal<0.11CWestern Reserve HospitalComment on above:Order Comment: Specimen Type: BLOOD SPECIMENOrdering Facility: [facility] Address: [address] [place], [place] [address]Performed By: #### 82304-4 ####KARINA LABORATORYCLIA [id number] [place] [address] [place] AMERICABasophils/100 WBC (Bld)0.0 %NormalOur Lady Of Mercy Hospital - AndersonComment on above:Order Comment: Specimen Type: BLOOD SPECIMENOrdering Facility: [facility] Address: [address] [place], [place] [address]Performed By: #### 85709-2 ####KARINA LABORATORYCLIA [id number] [place] [address] [place] AMERICADifferential cell count method Nom (Bld)ManualNormalClevelFormerly [facility]-Chow[facility] HospitalComeaton rapids medical center on above:Order Comment: Specimen Type: BLOOD SPECIMENOrdering Facility: [facility] Address: [address] [place], [place] [address]Performed By: #### 34066-0 ####KARINA LABORATORYCLIA [id number] [place] [address] [place] Eosinophils (Bld) [#/Vol]0.22 10*3/uLNormal<0.46[facility] Comment on above:Order Comment: Specimen Type: BLOOD SPECIMENOrdering Facility: [facility] Address: [address] [place], [place] [address]Performed By: #### 45759-5 ####KARINA LABORATORYCLIA [id number] [place] [id number] [place] AMERICAEosinophils/100 WBC (Bld)2.0 %NormalTriHealth [facility] on above:Order Comment: Specimen Type: BLOOD SPECIMENOrdering Facility: [facility] Address: [address] [place], [place] [address]Performed By: #### 28726-8 ####KARINA LABORATORYCLIA [id number] [place] [id number] [place] AMERICAErythrocyte distribution width (RBC) [Ratio] 19.6 %High11.5-15.0[facility] on above:Order Comment: Specimen Type: BLOOD SPECIMENOrdering Facility: [facility] Address: [address] [place], [place] [address]Performed By: #### 92192-4 ####KARINA LABORATORYCLIA [id number] [place] [id number] [place] AMERICAHematocrit (Bld) [Volume fraction]23.1 %Low 39.0-51.0[facility] on above:Order Comment: Specimen Type: BLOOD SPECIMENOrdering Facility: [facility] Ad dress: [address] [place], [place] [address]Performed By: #### 49044-9 ####KARINA LABORATORYCLIA [id number] [place] [id number] [place] AMERICAHemoglobin (Bld) [Mass/Vol]7.4 g/dLLow13.0-17.0[facility] on above:Order Comment: Specimen Type: BLOOD SPECIMENOrdering Facility: [facility] Address: [address] [place], [place] [address]Performed By: #### 13437-8 ####KARINA LABORATORYCLIA [id number] [place] [id number] [place] AMERICALymphocytes (Bld) [#/Vol]0.34 10*3/uLLow1.00-4.00[facility] AndersonComeaton rapids medical center on above:Order Comment: Specimen Type: BLOOD SPECIMENOrdering Facility: [facility] Address: [address] [place], [place] [address]Performed By: #### 35660-2 ####KARINA LABORATORYCLIA [id number] [place] [address] [place] Lymphocytes/100 WBC (Bld)3.0 %NormalOur Lady Of Mercy Hospital - AndersonComment on above: Order Comment: Specimen Type: BLOOD SPECIMENOrdering Facility: [facility] Address: [address] [place], [place] [address]Performed By: #### 50431-5 ####KARINA LABORATORYCLIA [id number] [address] (RBC) [Entitic mass]31.9 seFchcsq14.0-34.0[facility] - AndersonComment on above:Order Comment: Specimen Type: BLOOD SPECIMENOrdering Facility: [facility] Address: [address] [place], [place] [address]Performed By: #### 30364-1 ####KARINA LABORATORYCLIA [id number] [address] (RBC) [Mass/Vol]32.0 g/qXEfhfhc62.5-36.0 [facility] on above:Order Comment: Specimen Type: BLOOD SPECIMENOrdering Facility: [facility] Address: [address] [place], [place] [address]Performed By: #### 07747-9 ####KARINA LABORATORYCLIA [id number] [address] (RBC) [Entitic vol]99.6 rFVeajpf80.0-100.0[facility] Comment on above:Order Comment: Specimen Type: BLOOD SPECIMENOrdering Facility: [facility] Address: [address] [place], [place] [address]Performed By: #### 18715-8 ####KARINA LABORATORYCLIA [id number] [place] [address] [place] AMERICAMonocytes (Bld) [#/Vol] 0.11 10*3/uLNormal<0.87[facility] on above:Order Comment: Specimen Type: BLOOD SPECIMENOrdering Facility: [facility] Address: [address] [place], [place] [address]Performed By: #### 69813-8 ####KARINA LABORATORYCLIA [id number] [place] [id number] [place] AMERICAMonocytes/100 WBC (Bld)1.0 %NormalTriHealth [facility] on above:Order Comment: Specimen Type: BLOOD SPECIMENOrdering Facility: [facility] Address: [address] [place], [place] [address]Performed By: #### 14102-0 ####KARINA LABORATORYCLIA [id number] [place] [id number] [place] AMERICANeutrophils (Bld) [#/Vol]10.51 10*3/uLHigh1.45-7.50[facility] on above:Order Comment: Specimen Type: BLOOD SPECIMENOrdering Facility: [facility] Address: [address] [place], [place] [address]Performed By: #### 44667-8 ####KARINA LABORATORYCLIA [id number] [place] [id number] [place] Neutrophils/100 WBC (Bld)94.0 %NormalTriHealth [facility] on above: Order Comment: Specimen Type: BLOOD SPECIMENOrdering Facility: [facility] Address: [address] [place], [place] [address]Performed By: #### 11665-9 ####KARINA LABORATORYCLIA [id number] [place] [id number] [place] AMERICANucleated RBC (Bld) [#/Vol] 10*3/uLNormal<0.01[facility] on above:Order Comment: Specimen Type: BLOOD SPECIMENOrdering Facility: [facility] Address: [address] [place], [place] [address]Performed By: #### 90498-2 ####KARINA LABORATORYCLIA [id number] [place] [address] [place] AMERICANucleated RBC/100 WBC (Bld) [Ratio]0.0 /100 WBCNormalCFostoria City Hospital on above:Order Comment: Specimen Type: BLOOD SPECIMENOrdering Facility: [facility]ica [facility] Ad dress: [address] [place], [place] [address]Performed By: #### 03095-3 ####KARINA LABORATORYCLIA [id number] [place] [id number] [place] OF AMERICAPlatelet mean volume (Bld) [Entitic vol]10.1 fLNormal 9.0-12.7CFostoria City Hospital on above:Order Comment: Specimen Type: BLOOD SPECIMENOrdering Facility: [facility] Address: [address] [place], [place] [address]Performed By: #### 46735-1 ####KARINA LABORATORYCLIA [id number] [place] [address] [place] AMERICAPlatelets (Bld) [#/Vol]288 10*3/jTEuuwco704-491YgywerkvjOur Lady Of [facility] Comment on above:Order Comment: Specimen Type: BLOOD SPECIMENOrdering Facility: [facility] Address: [address] [place], [place] [address]Performed By: #### 16528-0 ####KARINA LABORATORYCLIA [id number] [place] [id number] [place] AMERICAPlatelets Estimate (Bld) [#/Vol]AdequateNormalClevelFormerly [facility]Chow[facility] HospitalComeaton rapids medical center on above:Order Comment: Specimen Type: BLOOD SPECIMENOrdering Facility: [facility] Address: [address] [place], [place] [address]Performed By: #### 42819-2 ####KARINA LABORATORYCLIA [id number] [place] [id number] [place] AMERICARBC (Bld) [#/Vol]2.32 10*6/uLLow4.20-6.00 [facility] ClevelandComment on above:Order Comment: Specimen Type: BLOOD SPECIMENOrdering Facility: [facility] Address: [address] [place], [place] [address]Performed By: #### 63467-6 ####DEONROLF LABORATORYCLIA [id number] [place] [address] [place] AMERICARED CELL MORPHReviewed: see results of individual morphologiesNormal [facility] on above:Order Comment: Specimen Type: BLOOD SPECIMENOrdering Facility: [facility] Address: [address] [place], [place] [address]Performed By: #### 50481-2 ####KARINA LABORATORYCLIA [id number] [place] [address] [place] AMERICAWBC (Bld) [#/Vol]11.18 10*3/uLHigh3.70-11.00[facility] Comment on above:Order Comment: Specimen Type: BLOOD SPECIMENOrdering Facility: [facility] Address: [address] [place], [place] [address]Performed By: #### 53593-8 ####KARINA LABORATORYCLIA [id number] [place] [address] [place] [facility] MENTOR HOSPITALWBC Left Shift Ql (Bld) PresentNormalCFostoria City Hospital on above:Order Comment: Specimen Type: BLOOD SPECIMENOrdering Facility: [facility] Ad dress: [address] [place], [place] [address]Performed By: #### 10469-0 ####KARINA LABORATORYCLIA [id number] [place] [address] [place] AMERICACCF COMP METAB 2000 PNL SERPLon 07-98-4525Xteyguc [Mass/Vol]2.5 g/dLLow3.9 - 4.9 g/dLNOMS HealthcareALP [Catalytic activity/Vol] 266 U/LHigh38 - 113 U/LNOMS HealthcareALT [Catalytic activity/Vol]23 U/L10 - 54 U/LNOMS HealthcareAnion gap [Moles/Vol]9 mmol/L8 - 15 mmol/LNOMS Healthcare Calcium [Mass/Vol]8.6 mg/dL8.5 - 10.2 mg/dLNOMS HealthcareCCF AST SERPL-CCNC28 U/L14 - 40 U/LNOMS HealthcareCCF BILIRUB SERPL-MCNC0.3 mg/dL0.2 - 1.3 mg/dLNOMS HealthcareCCF PROT SERPL-MCNC5.6 g/dLLow6.3 - 8.0 g/dLNOMS HealthcareChloride [Moles/Vol]97 mmol/LLow98 - 107 mmol/LNOMS HealthcareCO2 [Moles/Vol]27 mmol/L22 - 30 mmol/LNOMS HealthcareCreatinine [Mass/Vol]0.62 mg/dLLow0.73 - 1.22 mg/dL NOMS HealthcareEGFRCR SERPLBLD CKD-EPI 1102281- PINFNOIL HealthcareComment on above:Estimated Glomerular Filtration Rate (eGFR) is calculated using the 2020 CKD-EPI creatinine equation. This equation utilizes serum creatinine, sex, and age as parameters. The creatinine assay has traceable calibration to isotope dilution-mass spectrometry. Refer to KDIGO guidelines for clinical inte rpretation. In patients with unstable renal function, e.g. those with acute kidney injury, the eGFRmay not accurately reflect actual GFR.Glucose [Mass/Vol] 98 mg/dL74 - 99 mg/dLNOIL HealthcareComment on above:The [place] Diabetes Association (ADA) provides guidance for cutoff [...] Standards of Medical Care in Diabetes 2016, [employer] [place] [employer]. Diabetes Care. 2016.39(Suppl 1). Potassium [Moles/Vol]5.1 mmol/L3.7 - 5.1 mmol/LNOMS HealthcareSodium [Moles/Vol] 133 mmol/MUfl936 - 144 mmol/LNOMS HealthcareUrea nitrogen [Mass/Vol]21 mg/dL9 - 24 mg/dLNOMS HealthcareCCF CRP SERPL-MCNCon 67-45-5562IZW CRP SERPL-MCNC18.4 mg/dLHighNINF - 0.9 mg/dLNOWestern [facility] MAGNESIUM SERPL-MCNCon 01-15-2025 Magnesium [Mass/Vol]1.5 mg/dLLow1.7 - 2.3 mg/dLSelect Specialty HospitalCRP SerPl-mCncon 68-61-0995ANV [Mass/Vol]18.4 mg/dLHigh<0.9CWestern Reserve HospitalComeaton rapids medical center on above:Order Comment: Specimen Type: BLOOD SPECIMENOrdering Facility: [facility] Address: [address] [place] [address] Performed By: #### 1988-5 ####KARINA LABORATORYCLIA [id number] [place] [address] [place] AMERICAComprehensive metabolic 2000 panelon 83-72-4626Odwtibh [Mass/Vol]2.5 g/dLLow3.9-4.9CWestern Reserve Hospital Comment on above:Order Comment: Specimen Type: BLOOD SPECIMENOrdering Facility: [facility] Address: [address] [place], [place] [address]Performed By: #### 08837-0 ####KARINA LABORATORYCLIA [id number] [place] [address] [place] AMERICAALP [Catalytic activity/Vol]266 U/XZamo99-375ZtrycyophOur Lady Of Mercy Hospital - AndersonComeaton rapids medical center on above:Order Comment: Specimen Type: BLOOD SPECIMENOrdering Facility: [facility] Address: [address] [place], [place] [address]Performed By: #### 60871-2 ####KARINA LABORATORYCLIA [id number] [place] [id number] [place] AMERICAALT [Catalytic activity/Vol]23 U/ZOzdzce92-39 [facility] AndersonComeaton rapids medical center on above:Order Comment: Specimen Type: BLOOD SPECIMENOrdering Facility: [facility] Address: [address] [place], [place] [address]Performed By: #### 48307-9 ####KARINA LABORATORYCLIA [id number] [place] [address] [place] AMERICAAnion gap [Moles/Vol]9 mmol/LNormal8-15[facility] AndersonComeaton rapids medical center on above:Order Comment: Specimen Type: BLOOD SPECIMENOrdering Facility: [facility] Address: [address] [place] [address] Performed By: #### 28618-5 ####KARINA LABORATORYCLIA [id number] [place] [id number] [place] AMERICAAST [Catalytic activity/Vol]28 U/SAhurdg86-24GttfizmmxOur Lady Of Mercy Hospital - AndersonComeaton rapids medical center on above:Order Comment: Specimen Type: BLOOD SPECIMENOrdering Facility: [facility] Ad dress: [address] [place], [place] [address]Performed By: #### 78825-5 ####KARINA LABORATORYCLIA [id number] [place] [address] [place] AMERICABilirubin [Mass/Vol]0.3 mg/dLNormal0.2-1.3CFostoria City Hospital on above:Order Comment: Specimen Type: BLOOD SPECIMENOrdering Facility: [facility] Address: [address] [place], [place] [address]Performed By: #### 61145-7 ####KARINA LABORATORYCLIA [id number] [place] [id number] [place] AMERICACalcium [Mass/Vol]8.6 mg/dLNormal8.5-10.2CWestern Reserve Hospital Comment on above:Order Comment: Specimen Type: BLOOD SPECIMENOrdering Facility: [facility] Address: [address] [place] [address]Cmnfzkerm By: #### 79603-5 ####KARINA LABORATORYCLIA [id number] [place] [id number] [place] AMERICAChloride [Moles/Vol]97 mmol/CCxk18-270WdfxgjeuzTriHealth McCullough-Hy[facility] Hospital on above:Order Comment: Specimen Type: BLOOD SPECIMENOrdering Facility: [facility] Address: [address] [place], [place] [address]Performed By: #### 51150-8 ####DEONROLF LABORATORYCLIA [id number] [place] [address] [place] AMERICACO2 [Moles/Vol]27 mmol/PGcohzb25-18ZsaoquvsuTriHealth McCullough-Hyde Memorial Hospital on above:Order Comment: Specimen Type: BLOOD SPECIMENOrdering Facility: [facility] Address: [address] [place], [place] [address]Performed By: #### 17910-9 ####[facility] LABORATORYCLIA [id number] [place] [address] [place] AMERICACreatinine [Mass/Vol]0.62 mg/dLLow0.73-1.22[facility] Comment on above:Order Comment: Specimen Type: BLOOD SPECIMENOrdering Facility: [facility] Address: [address] [place], [place] [address]Performed By: #### 21087-8 ####[facility] LABORATORYCLIA [id number] [place] [address] [place] AMERICAeGFRcr SerPlBld CKD-EPI 4078584 mL/min/1.73m???Normal>=60[facility] on above: Order Comment: Specimen Type: BLOOD SPECIMENOrdering Facility: [facility] Address: [address] [place], [place] [address]Result Comment: Estimated Glomerular Filtration Rate (eGFR) is calculated using the 2020 CKD-EPI creatinine equation. This equation utilizes serum creatinine, sex, and age as parameters. The creatinine assay has traceable calibration to isotope dilution-mass spectrometry. Refer to KDIGO guidelines for clinical interpretation. In patients with unstable renal function, e.g. those with acute kidney injury, the eGFR may not accurately reflect actual GFR.Performed By: #### 72942-9 ####KARINA LABORATORYCLIA [id number] [place] [id number] [place] AMERICAGlucose [Mass/Vol]98 mg/vSMbcbaz20-69GxpoejawsTriHealth McCullough-Hyde Memorial Hospital on above:Order Comment: Specimen Type: BLOOD SPECIMENOrdering Facility: [facility] Address: [address] [place], [place] [address]Result Comment: The [place] Diabetes [employer] (ADA) provides guidance for cutoff [...] symptoms of hyperglycemia or hyperglycemic crisis, random plasmaglucose results greater than or equal to 200 mg/dL meet the criteria for diagnosis of diabetes.Reference: Standards of Medical Care in Diabetes 2016, [employer] [place] [employer]. Diabetes Care. 2016.39(Suppl 1). Performed By: #### 91192-8 ####KARINA LABORATORYCLIA [id number] [place] [address] [place] AMERICAPotassium [Moles/Vol]5.1 mmol/LNormal3.7-5.1CFostoria City Hospital on above:Order Comment: Specimen Type: BLOOD SPECIMENOrdering Facility: [facility] Address: [address] [place], [place] [address]Performed By: #### 46150-4 ####KARINA LABORATORYCLIA [id number] [place] [id number] [place] AMERICAProtein [Mass/Vol]5.6 g/dLLow6.3-8.0[facility] on above:Order Comment: Specimen Type: BLOOD SPECIMENOrdering Facility: [facility] Address: [address] [place], [place] [address]Performed By: #### 90788-2 ####KARINA LABORATORYCLIA [id number] [place] [id number] [place] AMERICASodium [Moles/Vol]133 mmol/UZwl559-589CrqdubksqTriHealth McCullough-Hy[facility] Hospital on above:Order Comment: Specimen Type: BLOOD SPECIMENOrdering Facility: [facility] Address: [address] [place] [address] Performed By: #### 21165-4 ####KARINA LABORATORYCLIA [id number] [place] [id number] [place] AMERICAUrea nitrogen [Mass/Vol]21 mg/dLNormal9-24[facility] AndersonComeaton rapids [facility] on above:Order Comment: Specimen Type: BLOOD SPECIMENOrdering Facility: [facility] Address: [address] [place], [place] [address]Performed By: #### 04935-5 ####[facility] LABORATORYCLIA [id number] [place] [address] [place] AMERICAGGT SerPl-cCncon 16-11-7747Zklei glutamyl transferase [Catalytic activity/Vol]156 U/CDqyl44-72ZxbedheluOur Lady Of Mer[facility] Comment on above:Order Comment: Specimen Type: BLOOD SPECIMENOrdering Facility: [facility] Address: [address] [place], [place] [address]Performed By: #### 2324-2 ####[facility] LABCLIA [id number] [address] [address] [place] Magnesium SerPl-mCncon 00-21-5009Plzzkxlwj [Mass/Vol]1.5 mg/dLLow1.7-2.3 [facility] on above:Order Comment: Specimen Type: BLOOD SPECIMENOrdering Facility: [facility] Address: [address] [place], [place] [address]Performed By: #### 89150-0 ####KARINA LABORATORYCLIA [id number] [address] Panel Informationon 98-32-2361Owvmmzyvqsccvj and review of laboratory resultsAbnormalNOMS HealthcareSpecimen Type: BLOOD SPECIMEN [facility] Address: [address] [place] [address] Original Ordering Provider: DAVID BRAVOSelect Specialty HospitalTacrolimus Bld-ncon 00-84-6102Zixnihkjxx (Bld) [Mass/Vol]10.6 ng/mLNormal5.0-20.0 [facility] on above:Order Comment: Specimen Type: BLOOD SPECIMENOrdering Facility: [facility] Address: [address] [place], [place] [address]Result Comment: Individualized target levels for a given patient will depend on many factors (including the type of organ transplant, time since transplantation, concurrent medications, and other clin ical factors), and should be assessed by those health care providers experienced in the management of immunosuppression. Reference ranges and high/low indicator flags are provided as general guidelines only. The treating physician must determine appropriate target levels/dosing based on the specific clinical situation. Test performed by chemiluminescent immunoassay using [employer].Performed By: #### 54806-3 ####[facility] LABIA [id number] [place] [address] [place] CASE MANAGEMon 32-43-6446NYMV MANAGEMNormalWhite Hospital W Auto Differential panel (Bld)on 72-44-2889Holkloonljgr Ql (Bld)PresentNormalCFostoria City Hospital on above:Order Comment: Specimen Type: BLOOD SPECIMENOrdering Facility: [facility] Address:[address] [place], [place] [address]Performed By: #### 96781-6 ####[facility]-RITTMAN HOSPITALIA [id number] [place] [address] [place] [facility]ENTOR HOSPITALBasophils (Bld) [#/Vol]0.00 10*3/uLNormal<0.11CWestern Reserve Hospital Comment on above:Order Comment: Specimen Type: BLOOD SPECIMENOrdering Facility: [facility] Address:[address] [place] [address] Performed By: #### 09326-4 ####[facility]ORTH-RITTMAN HOSPITALIA [id number] [place] [address] [place] Basophils/100 WBC (Bld)0.0 %NormalTriHealth McCullough-Hyde Memorial Hospital on above: Order Comment: Specimen Type: BLOOD SPECIMENOrdering Facility: [facility] Address:[address] [place], [place] [address]Performed By: #### 39847- 8 ####[facility] LABIA [id number] [place] [address] [place] AMERICADifferential cell count method Nom (Bld)ManualNormalCFostoria City Hospital on above:Order Comment: Specimen Type: BLOOD SPECIMENOrdering Facility: [facility] Address:[address] [place], [place] [address]Performed By: #### 45674-3 ####[facility] LABCLIA [id number] [place] [address] [place] AMERICAEosinophils (Bld) [#/Vol]0.12 10*3/uLNormal<0.46[facility] on above:Order Comment: Specimen Type: BLOOD SPECIMENOrdering Facility: [facility] Address:[address] [place], [place] [address]Performed By: #### 42929-2 ####[facility] LABIA [id number] [place] [address] [place] AMERICAEosinophils/100 WBC (Bld)1.0 % NormalTriHealth McCullough-Hyde Memorial Hospital on above:Order Comment: Specimen Type: BLOOD SPECIMENOrdering Facility: [facility] Address:[address] [place], [place] [address]Performed By: #### 59957-5 ####[facility] LABIA [id number] [place] [address] [place] AMERICAErythrocyte distribution width (RBC) [Ratio]19.6 %High11.5-15.0 [facility] on above:Order Comment: Specimen Type: BLOOD SPECIMENOrdering Facility: [facility] Address:[address] [place], [place] [address]Performed By: #### 79314-7 ####[facility] LABIA [id number] [place] [address] [place] OF AMERICAHematocrit (Bld) [Volume fraction]24.2 %Low39.0-51.0[facility] on above:Order Comment: Specimen Type: BLOOD SPECIMENOrdering Facility: [facility] Address:[address] [place], [place] [address]Performed By: #### 40478-7 ####[facility] LABIA [id number] [address] STATES [place] Hemoglobin (Bld) [Mass/Vol]7.6 g/dLLow13.0-17.0[facility] on above:Order Comment: Specimen Type: BLOOD SPECIMENOrdering Facility: [facility] Address:[address] [place] [address] Performed By: #### 92393-4 ####[facility] LABIA [id number] [address] Lymphocytes (Bld) [#/Vol]1.11 10*3/uLNormal1.00-4.00[facility] Comment on above:Order Comment: Specimen Type: BLOOD SPECIMENOrdering Facility: [facility] Address:[address] [place] [address] Performed By: #### 06754-0 ####[facility] LABIA [id number] [address] STATES [facility] Lymphocytes/100 WBC (Bld)9.0 %NormalTriHealth McCullough-Hyde [facility] on above: Order Comment: Specimen Type: BLOOD SPECIMENOrdering Facility: [facility] Address:[address] [place], [place] [address]Performed By: #### 09266- 8 ####[facility] LABIA [id number] [place] [address] [facility]–TUSKEGEEMCH (RBC) [Entitic mass]31.8 pg Mdizpv61.0-34.0[facility] on above:Order Comment: Specimen Type: BLOOD SPECIMENOrdering Facility: [facility] Address:[address] [place], [place] [address]Performed By: #### 98126-5 ####[facility] LABIA [id number] [place] [address] [place] AMERICAMCHC (RBC) [Mass/Vol]31.4 g/dL Tmwqgp16.5-36.0[facility] on above:Order Comment: Specimen Type: BLOOD SPECIMENOrdering Facility: [facility] Address:[address] [place], [place] [address]Performed By: #### 66917-1 ####[facility] LABCLIA [id number] [address]ETMCV (RBC) [Entitic vol]101.3 fL High80.0-100.0[facility] on above:Order Comment: Specimen Type: BLOOD SPECIMENOrdering Facility: [facility] Address:[address] [place], [place] [address]Performed By: #### 36814-4 ####[facility] LABCLIA [id number] [address] STATES OF AMERICAMetamyelocytes/100 WBC (Bld)1.0 %NormalTriHealth McCullough-Hyde Memorial Hospital on above:Order Comment: Specimen Type: BLOOD SPECIMENOrdering Facility: [facility] Address:[address] [place], [place] [address]Performed By: #### 45844-5 ####[facility] LABCLIA [id number] [place] [address] [place] Monocytes (Bld) [#/Vol]0.99 10*3/uLHigh<0.87[facility] on above:Order Comment: Specimen Type: BLOOD SPECIMENOrdering Facility: [facility] Address:[address] [place], [place] [address]Performed By: #### 00757-7 ####[facility] LABCLIA [id number] [address] STATES OF AMERICAMonocytes/100 WBC (Bld)8.0 %NormalTriHealth McCullough-Hyde Memorial [facility] on above:Order Comment: Specimen Type: BLOOD SPECIMENOrdering Facility: [facility] Address:[address] [place], [place] [address]Performed By: #### 40520-1 ####[facility] LABCLIA [id number] [place] [address] [place] AMERICANeutrophils (Bld) [#/Vol]10.01 10*3/uLHigh1.45-7.50[facility] on above:Order Comment: Specimen Type: BLOOD SPECIMENOrdering Facility: [facility] Address:[address] [place], [place] [address]Performed By: #### 35234-5 ####[facility] LABIA [id number] [place] [address] [place] AMERICANeutrophils/100 WBC (Bld)81.0 % NormalTriHealth McCullough-Hyde Memorial Hospital on above:Order Comment: Specimen Type: BLOOD SPECIMENOrdering Facility: [facility] Address:[address] [place], [place] [address]Performed By: #### 09569-5 ####[facility] LABIA [id number] [place] [address] [place] AMERICANucleated RBC (Bld) [#/Vol]10*3/uLNormal<0.01[facility] on above:Order Comment: Specimen Type: BLOOD SPECIMENOrdering Facility: [facility] Address:[address] [place], [place] [address]Performed By: #### 74956-4 ####[facility] LABCLIA [id number] [place] [address] [place] Nucleated RBC/100 WBC (Bld) [Ratio]0.0 /100 WBCNormalCWestern Reserve Hospital Comment on above:Order Comment: Specimen Type: BLOOD SPECIMENOrdering Facility: [facility] Address:[address] [place] [address] Performed By: #### 46425-8 ####[facility] LABCLIA [id number] [place] [address] [place] Ovalocytes LM Ql (Bld)FewNormalCFostoria City Hospital on above:Order Comment: Specimen Type: BLOOD SPECIMENOrdering Facility: [facility] Address:[address] [place], [place] [address]Performed By: #### 90480- 8 ####[facility] LABCLIA [id number] [address], [facility]95 [place] AMERICAPlatelet mean volume (Bld) [Entitic vol]9.9 fLNormal9.0-12.7CFostoria City Hospital on above: Order Comment: Specimen Type: BLOOD SPECIMENOrdering Facility: [facility] Address:[address] [place], [place] [address]Performed By: #### 39529- 8 ####[facility] LABCLIA [id number] [place] [address] [place] AMERICAPlatelets (Bld) [#/Vol]322 10*3/ySXzciki223-110VajtfrqjdTriHealth McCullough-[facility] on above:Order Comment: Specimen Type: BLOOD SPECIMENOrdering Facility: [facility] Address:[address] [place], [place] [address]Performed By: #### 46684-8 ####[facility] LABCLIA [id number] [place] [address] [place] [facility] MENTOR HOSPITALPlatelets Estimate (Bld) [#/Vol] AdequateNormalCFostoria City Hospital on above:Order Comment: Specimen Type: BLOOD SPECIMENOrdering Facility: [facility] Address:[address] [place], [place] [address]Performed By: #### 73669-2 ####[facility] LABCLIA [id number] [place] [address] [place] AMERICAPolychromasia LM Ql (Bld)SlightNormalCFostoria City Hospital on above:Order Comment: Specimen Type: BLOOD SPECIMENOrdering Facility: [facility] Address:[address] [place], [place] [address]Performed By: #### 57640-8 ####[facility] LABCLIA [id number] [place] [address] [place] RBC (Bld) [#/Vol]2.39 10*6/uLLow4.20-6.00[facility] on above:Order Comment: Specimen Type: BLOOD SPECIMENOrdering Facility: [facility] Address:[address] [place], [place] [address]Performed By: #### 81433-5 ####[facility] LABIA [id number] [address]ETRED CELL MORPH Reviewed: see results of individual [facility] Comment on above:Order Comment: Specimen Type: BLOOD SPECIMENOrdering Facility: [facility] Address:[address] [place] [address] Performed By: #### 16116-6 ####[facility] LABIA [id number] [place] [address] [place] Target cells LM Ql (Bld)[facility] on above: Order Comment: Specimen Type: BLOOD SPECIMENOrdering Facility: [facility] Address:[address] [place], [place] [address]Performed By: #### 40277- 8 ####[facility] LABIA [id number] [place] [address] [place] AMERICAWBC (Bld) [#/Vol]12.36 10*3/uL High3.70-11.00[facility] on above:Order Comment: Specimen Type: BLOOD SPECIMENOrdering Facility: [facility] Address:[address] [place], [place] [address]Performed By: #### 51872-9 ####[facility] LABIA [id number] [place] [address] [place] OF AMERICAWBC Left Shift Ql (Bld)PresentNormalCFostoria City Hospital on above:Order Comment: Specimen Type: BLOOD SPECIMENOrdering Facility: [facility] Address:[address] [place], [place] [address]Performed By: #### 52330-6 ####[facility] LABCLIA [id number] [address] [place] [address] [place] CNDSon 77-85-6558HKCFUovnwqXvfzllsmd Clinic ClevelandComprehensive metabolic 2000 panelon 18-66-3551Nbpszfm [Mass/Vol]2.3 g/dLLow3.9-4.9ClevelPremier Health Miami [facility] on above:Order Comment: Specimen Type: BLOOD SPECIMENOrdering Facility: [facility] Address:[address] [place], [place] [address]Performed By: #### 83357-7, 59384-4, 2777-1 ####[facility] LABCLIA [id number] [address] [place] AMERICAALP [Catalytic activity/Vol]283 U/IHzyq78-299MxivgqdsmTriHealth [facility] on above:Order Comment: Specimen Type: BLOOD SPECIMENOrdering Facility: [facility] Address:[address] [place], [place] [address]Performed By: #### 57482-4, 41982-7, 2777-1 ####[facility] LABCLIA [id number] VIL[place] [address] [place] OF AMERICAALT [Catalytic activity/Vol]27 U/IMplqjh83-28MdewbsldzTriHealth [facility] on above:Order Comment: Specimen Type: BLOOD SPECIMENOrdering Facility: [facility] Address:[address] [place], [place] [address]Performed By: #### 84766-3, 71480-0, 2777-1 ####[facility] LABCLIA [id number] [place] [id number] [place] AMERICAAnion gap [Moles/Vol]11 mmol/LNormal8-15[facility] on above:Order Comment: Specimen Type: BLOOD SPECIMENOrdering Facility: [facility] Address:[address] [place], [place] [address]Performed By: #### 91212-8, , 2776-04 ####[facility] LABCLIA [id number] AVENUEANDERSON [place] [address] [place] AMERICAAST [Catalytic activity/Vol]28 U/SZlbakw19-02ZuixpvgwuTriHealth [facility] on above:Order Comment: Specimen Type: BLOOD SPECIMENOrdering Facility: [facility] Address:[address] [place], [place] [address]Performed By: #### 17469-1, , 2776-04 ####[facility] LABCLIA [id number] [place] [address] [place] AMERICABilirubin [Mass/Vol]0.2 mg/dLNormal0.2-1.3CFostoria City Hospital on above:Order Comment: Specimen Type: BLOOD SPECIMENOrdering Facility: [facility] Address:[address] [place], [place] [address]Performed By: #### 95421-9, , 2776-04 ####[facility] LABCLIA [id number] [place] [address] [place] AMERICACalcium [Mass/Vol]8.5 mg/dLNormal8.5-10.2CFostoria City Hospital on above:Order Comment: Specimen Type: BLOOD SPECIMENOrdering Facility: [facility] Address:[address] [place], [place] [address]Performed By: #### 22393-7, , 2776-04 ####[facility] LABCLIA [id number] AVENUEANDERSON SANATORIUMK [place] [address] [place] OF AMERICAChloride [Moles/Vol]101 mmol/AKhzbwx06-955QibmbesrmTriHealth [facility] on above:Order Comment: Specimen Type: BLOOD SPECIMENOrdering Facility: [facility] Address:[address] [place], [place] [address]Performed By: #### 08953-5, , 2776-04 ####[facility] LABIA [id number] [address] [place] AMERICACO2 [Moles/Vol]23 mmol/CFpcovd59-91RoydfkupmOur [facility] Comment on above:Order Comment: Specimen Type: BLOOD SPECIMENOrdering Facility: [facility] Address:[address] [place] [address] Performed By: #### 22674-9, , 2776-04 ####[facility] [id number] VILLE [address] [place] AMERICACreatinine [Mass/Vol]0.71 mg/dLLow0.73-1.22[facility] Comment on above:Order Comment: Specimen Type: BLOOD SPECIMENOrdering Facility: [facility] Address:[address] [place] [address] Performed By: #### 84376-8, , 2776-04 ####[facility] [id number] VILLE [address] [place] AMERICAeGFRcr SerPlBld CKD-EPI 919851 mL/min/1.73m???Normal>=60[facility] - AndersonComment on above:Order Comment: Specimen Type: BLOOD SPECIMENOrdering Facility: [facility] Address:[address] [place], [place] [address]Result Comment: Estimated Glomerular Filtration Rate (eGFR) is [...] accurately reflect actual GFR. Performed By: #### 27628-0, 10293-9, 2777-1 ####[facility] LABIA [id number] [address] [place] AMERICAGlucose [Mass/Vol]110 mg/kXOdqe10-61QzgfctvfzTriHealth [facility] on above:Order Comment: Specimen Type: BLOOD SPECIMENOrdering Facility: [facility] Address:[address] [place], [place] [address]Result Comment: The [place] Diabetes [employer] (ADA) provides guidance for cutoff [...] unequivocal hyperglycemia, results should be confirmed by repeattesting. In a patient with classic symptoms of hyperglycemia or hyperglycemic crisis, random plasmaglucose results greater than or equal to 200 mg/dL meet the criteria for diagnosis of diabetes.Reference: Standards of Medical Care in Diabetes 2016, [employer] [place] [employer]. Diabetes Care. 2016.39(Suppl 1).Performed By: #### 46041-9, 95272-3, 2776- ####[facility] LABIA [id number] VILLE [address] [place] AMERICAPotassium [Moles/Vol]4.9 mmol/LNormal3.7-5.1 [facility] on above:Order Comment: Specimen Type: BLOOD SPECIMENOrdering Facility: [facility] Address:[address] [place], [place] [address]Performed By: #### 62761-5, 48068-6, 2776- ####[facility] LABNORTHWESTERN [facility] [id number] [address] [place] AMERICAProtein [Mass/Vol]5.5 g/dLLow6.3-8.0[facility] on above:Order Comment: Specimen Type: BLOOD SPECIMENOrdering Facility: [facility] Address:[address] [place], [place] [address]Performed By: #### 09337-9, 48691-0, 2777- ####[facility] LABCLIA [id number] [address] [address] [place] OF AMERICASodium [Moles/Vol]135 mmol/WIth880-814ClgpyasclTriHealth [facility]ullough-[facility] on above:Order Comment: Specimen Type: BLOOD SPECIMENOrdering Facility: [facility] Address:[address] [place], [place] [address]Performed By: #### 44030-2, 61638-4, 277- ####[facility] LABIA [id number] [address] [place] AMERICAUrea nitrogen [Mass/Vol]20 mg/dLNormal9-24 [facility] AndersonComment on above:Order Comment: Specimen Type: BLOOD SPECIMENOrdering Facility: [facility] Address:[address] [place], [place] [address]Performed By: #### 15248-6, 27199-6, 27710-15 ####[facility] LABCLIA [id number] [address] [place] AMERICAMagnesium SerPl-mCncon 30-26-4966Goqeclbva [Mass/Vol]1.7 mg/dLNormal1.7-2.3CWestern Reserve HospitalComeaton rapids medical center on above:Order Comment: Specimen Type: BLOOD SPECIMENOrdering Facility: [facility] Address:[address] [place] [address]Sskrjwrle By: #### 72704- 8, 75007-8, 2777 ####[facility] LABIA [id number] VILLE [address] [place] AMERICAPT panel Coag (PPP)on 96-14-4075CWZ Coag (PPP) [Relative time]Normal0.9-1.3CWestern Reserve Hospital Comment on above:Order Comment: Specimen Type: BLOOD SPECIMENOrdering Facility: [facility] Address:[address] [place], [place] [address]Result Comment: Disregard results. Specimen incorrectly identified.Corrected result: Previously reported as 1.1 on 01/14/2025 at 6:12 PM EDT.Performed By: #### 32701- 0 ####[facility] LABCLIA [id number] [place] [address] [place] [facility] HOSPITALPT Coag (PPP) [Time]Normal 9.7-13.0[facility] on above:Order Comment: Specimen Type: BLOOD SPECIMENOrdering Facility: [facility] Address:[address] [place], [place] [address]Result Comment: Disregard results. Specimen incorrectly identified.Corrected result: Previously reported as 12.3 sec on 01/14/2025 at 6:12 PM EDT.Performed By: #### 44704-2 ####[facility] LABCLIA [id number] [address] OF AMERICAPhosphate SerPl-Select Specialty Hospital - Johnstownon 33-17-5367Nfpxdvnwe [Mass/Vol]4.3 mg/dL Normal2.7-4.8CFostoria City Hospital on above:Order Comment: Specimen Type: BLOOD SPECIMENOrdering Facility: [facility] Address:[address] [place], [place] [address]Performed By: #### 21219-4, 87205-5, 2777-1 ####[facility] LABCLIA [id number] [address] OF [facility] MENTOR HOSPITALTHERAPY NTon 65-01-1210JPYPGNY NT NormalOur Lady Of Mercy Hospital - AndersonTHERAPY NTNormalClevelFormerly [facility] Tacrolimus Bld-mCncon 91-89-4790Wbrzinhqhd (Bld) [Mass/Vol]9.0 ng/mLNormal 5.0-20.0[facility] on above:Order Comment: Specimen Type: BLOOD SPECIMENOrdering Facility: [facility] Address:[address] [place], [place] [address]Result Comment: Individualized target levels for a given patient will depend on many factors (including the type of organ transplant, time since transplantation, concurrent medications, and other clin ical factors), and should be assessed by those health care providers experienced in the management of immunosuppression. Reference ranges and high/low indicator flags are provided as general guidelines only. The treating physician must determine appropriate target levels/dosing based on the specific clinical situation. Test performed by chemiluminescent immunoassay using [employer] i.Performed By: #### 48475-0 ####[facility] LABCLIA [id number] [place] [address] [place] CBC W Auto Differential panel (Bld)on 72-25-5714Utoozruovdfx Ql (Bld)Present NormalTriHealth McCullough-[facility]de [facility] Hospital on above:Order Comment: Specimen Type: BLOOD SPECIMENOrdering Facility: [facility] Address:[address] [place], [place] [address]Performed By: #### 29588-0 ####[facility] LABIA [id number] [place] [address] [place] [facility]ENT[facility] HOSPITALBasophils (Bld) [#/Vol]0.00 10*3/uLNormal<0.11ClevelPremier Health Miami Valley Hospital on above:Order Comment: Specimen Type: BLOOD SPECIMENOrdering Facility: [facility] Address:[address] [place], [place] [address]Performed By: #### 88168-9 ####[facility] LABIA [id number] [place] [address] [place] Basophils/100 WBC (Bld)0.0 %NormalTriHealth McCullough-[facility] on above: Order Comment: Specimen Type: BLOOD SPECIMENOrdering Facility: [facility] Address:[address] [place], [place] [address]Performed By: #### 53620- 8 ####[facility] LABIA [id number] [place] [address] [place] [facility]ENT[facility] HOSPITALDifferential cell count method Nom (Bld)ManualNormalClevelPremier Health Miami [facility] Hospital on above:Order Comment: Specimen Type: BLOOD SPECIMENOrdering Facility: [facility] Address:[address] [place], [place] [address]Performed By: #### 89111-6 ####[facility] LABIA [id number] [place] [address] [place] AMERICAEosinophils (Bld) [#/Vol]0.00 10*3/uLNormal<0.46[facility] on above:Order Comment: Specimen Type: BLOOD SPECIMENOrdering Facility: [facility] Address:[address] [place], [place] [address]Performed By: #### 59364-2 ####[facility] LABIA [id number] [place] [address] [place] AMERICAEosinophils/100 WBC (Bld)0.0 % NormalTriHealth McCullough-Hyde Memorial Hospital on above:Order Comment: Specimen Type: BLOOD SPECIMENOrdering Facility: [facility] Address:[address] [place], [place] [address]Performed By: #### 44411-9 ####[facility] LABIA [id number] [place] [address] [place] AMERICAErythrocyte distribution width (RBC) [Ratio]19.6 %High11.5-15.0 [facility] on above:Order Comment: Specimen Type: BLOOD SPECIMENOrdering Facility: [facility] Address:[address] [place], [place] [address]Performed By: #### 18516-1 ####[facility] LABIA [id number] [place] [address] [place] AMERICAHematocrit (Bld) [Volume fraction]23.8 %Low39.0-51.0[facility] on above:Order Comment: Specimen Type: BLOOD SPECIMENOrdering Facility: [facility] Address:[address] [place], [place] [address]Performed By: #### 16299-4 ####[facility] LABIA [id number] [place] [address] [place] Hemoglobin (Bld) [Mass/Vol]7.5 g/dLLow13.0-17.0[facility] on above:Order Comment: Specimen Type: BLOOD SPECIMENOrdering Facility: [facility] Address:[address] [place] [address] Performed By: #### 37207-0 ####[facility] LABIA [id number] [place] [address] [place] Lymphocytes (Bld) [#/Vol]0.51 10*3/uLLow1.00-4.00[facility] Comment on above:Order Comment: Specimen Type: BLOOD SPECIMENOrdering Facility: [facility] Address:[address] [place] [address] Performed By: #### 93903-0 ####[facility] LABIA [id number] [address] STATES OF [place] Lymphocytes/100 WBC (Bld)4.3 %NormalTriHealth McCullough-Hyde Memorial Hospital on above: Order Comment: Specimen Type: BLOOD SPECIMENOrdering Facility: [facility] Address:[address] [place], [place] [address]Performed By: #### 55294- 8 ####[facility] LABIA [id number] [address] (RBC) [Entitic mass]31.3 pg Cwlmwb65.0-34.0[facility] on above:Order Comment: Specimen Type: BLOOD SPECIMENOrdering Facility: [facility] Address:[address] [place], [place] [address]Performed By: #### 46056-8 ####[facility] LABIA [id number] [place] [address] [facility] (RBC) [Mass/Vol]31.5 g/dL Kkmgom10.5-36.0[facility] on above:Order Comment: Specimen Type: BLOOD SPECIMENOrdering Facility: [facility] Address:[address] [place], [place] [address]Performed By: #### 12538-9 ####[facility] LABCLIA [id number] [address] [place] [address] [place] AMERICAMCV (RBC) [Entitic vol]99.2 fL Acoivo84.0-100.0[facility] on above:Order Comment: Specimen Type: BLOOD SPECIMENOrdering Facility: [facility] Address:[address] [place], [place] [address]Performed By: #### 91444-9 ####[facility] LABIA [id number] [address], [facility]95 [place] AMERICAMonocytes (Bld) [#/Vol]0.83 10*3/uLNormal<0.87[facility] on above:Order Comment: Specimen Type: BLOOD SPECIMENOrdering Facility: [facility] Address:[address] [place], [place] [address]Performed By: #### 92406-0 ####[facility] LABIA [id number] [address], [facility]95 [place] AMERICAMonocytes/100 WBC (Bld)7.0 % NormalTriHealth McCullough-Hyde Memorial Hospital on above:Order Comment: Specimen Type: BLOOD SPECIMENOrdering Facility: [facility] Address:[address] [place], [place] [address]Performed By: #### 69958-5 ####[facility] LABCLIA [id number] [address] [place] [address] [place] AMERICAMYELO%0.9 %NormalTriHealth McCullough-[facility] on above: Order Comment: Specimen Type: BLOOD SPECIMENOrdering Facility: [facility] Address:[address] [place], [place] [address]Performed By: #### 26224- 8 ####[facility] LABCLIA [id number] [place] [address] [place] AMERICANeutrophils (Bld) [#/Vol]10.36 10*3/uLHigh1.45-7.50[facility] on above:Order Comment: Specimen Type: BLOOD SPECIMENOrdering Facility: [facility] Address:[address] [place], [place] [address]Performed By: #### 89182-8 ####[facility] LABIA [id number] [place] [address] [place] AMERICANeutrophils/100 WBC (Bld)87.8 % NormalTriHealth McCullough-Hyde Memorial [facility] on above:Order Comment: Specimen Type: BLOOD SPECIMENOrdering Facility: [facility] Address:[address] [place], [place] [address]Performed By: #### 70095-0 ####[facility] LABIA [id number] [place] [address] [place] AMERICANucleated RBC (Bld) [#/Vol]10*3/uLNormal<0.01[facility] on above:Order Comment: Specimen Type: BLOOD SPECIMENOrdering Facility: [facility] Address:[address] [place], [place] [address]Performed By: #### 89166-5 ####[facility] LABIA [id number] [place] [address] [place] Nucleated RBC/100 WBC (Bld) [Ratio]0.0 /100 WBCNormalCWestern Reserve Hospital Comment on above:Order Comment: Specimen Type: BLOOD SPECIMENOrdering Facility: [facility] Address:[address] [place] [address] Performed By: #### 11478-7 ####[facility] LABIA [id number] [place] [address] [place] Platelet mean volume (Bld) [Entitic vol]10.0 fLNormal9.0-12.7CFostoria City Hospital on above:Order Comment: Specimen Type: BLOOD SPECIMENOrdering Facility: [facility] Address:[address] [place], [place] [address]Performed By: #### 74659-0 ####[facility] LABCLIA [id number] [facility]D [address] [place] [address] [place] Platelets (Bld) [#/Vol]318 10*3/tSRbyrxq038-502HnoeqheerTriHealth [facility] on above:Order Comment: Specimen Type: BLOOD SPECIMENOrdering Facility: [facility] Address:[address] [place] [address] Performed By: #### 53768-3 ####[facility] LABCLIA [id number] [address], [facility]95 [place] Platelets Estimate (Bld) [#/Vol]AdequateNormalCFostoria City Hospital on above:Order Comment: Specimen Type: BLOOD SPECIMENOrdering Facility: [facility] Address:[address] [place] [address] Performed By: #### 90372-8 ####[facility] LABCLIA [id number] [address], [facility]95 [place] Polychromasia LM Ql (Bld)SlightNormalCFostoria City Hospital on above: Order Comment: Specimen Type: BLOOD SPECIMENOrdering Facility: [facility] Address:[address] [place], [place] [address]Performed By: #### 24725- 8 ####[facility] LABCLIA [id number] [facility]D [address] [place] [address] [place] AMERICARBC (Bld) [#/Vol]2.40 10*6/uLLow 4.20-6.00[facility] on above:Order Comment: Specimen Type: BLOOD SPECIMENOrdering Facility: [facility] Address:[address] [place], [place] [address]Performed By: #### 23143-5 ####[facility] LABCLIA [id number] [address] [place] [address] [place] AMERICARED CELL MORPHReviewed: see results of individual morphologiesNoMartins Ferry Hospital on above:Order Comment: Specimen Type: BLOOD SPECIMENOrdering Facility: [facility] Address:[address] [place], [place] [address]Performed By: #### 44909-8 ####[facility] LABCLIA [id number] [address] [place] [address] [place] AMERICATarget cells LM Ql (Bld)FewNormal [facility] on above:Order Comment: Specimen Type: BLOOD SPECIMENOrdering Facility: [facility] Address:[address] [place], [place] [address]Performed By: #### 19565-6 ####[facility] LABCLIA [id number] [address], [facility]95 [place] OF AMERICAWBC (Bld) [#/Vol]11.80 10*3/uLHigh3.70-11.00[facility] Comment on above:Order Comment: Specimen Type: BLOOD SPECIMENOrdering Facility: [facility] Address:[address] [place] [address] Performed By: #### 53111-6 ####[facility] LABCLIA [id number] [address] [place] [address] [place] WBC Left Shift Ql (Bld)[facility] on above: Order Comment: Specimen Type: BLOOD SPECIMENOrdering Facility: [facility] Address:[address] [place], [place] [address]Performed By: #### 30228- 8 ####[facility] LABCLIA [id number] [address], [facility]95 [place] AMERICACONSULT PROGon 48-94-5056YZHFQPM PROGNormalOur Lady Of Mercy Hospital - AndersonCONSULT PROGNormalOur [facility] CONSULT PROGNormalOur Lady Of Mer[facility] Hospital - AndersonCYTOMEGALOVIRUS (CMV) DNA, QUANTITATIVE PCR, PLASMAon 82-13-6899ETR DNA JESSICA+probe [#/Vol]352 IU/mLAultman Alliance Community Hospital on above:Order Comment: Specimen Type: BLOOD SPECIMENOrdering Facility: [facility] Address:[address] [place], [place] [address]Performed By: #### CMVQNT ####[facility] LABCLIA [id number] [place] [address] [place] AMERICACMV DNA JESSICA+probe [Log #/Vol]2.55 log IU/mLMary [facility] Comment on above:Order Comment: Specimen Type: BLOOD SPECIMENOrdering Facility: [facility] Address:[address] [place] [address] Performed By: #### CMVQNT ####[facility] LABCLIA [id number] [place] [address] [place] CMV DNA JESSICA+probe Qn (P)DetectedAbnormalNot DetectedOur Lady Of [facility] Comment on above:Order Comment: Specimen Type: BLOOD SPECIMENOrdering Facility: [facility] Address:[address] [place] [address] Performed By: #### CMVQNT ####[facility] LABCLIA [id number] [place] [address] [place] Comprehensive metabolic 2000 panelon [id number] [Mass/Vol]2.1 g/dLLow 3.9-4.9CFostoria City Hospital on above:Order Comment: Specimen Type: BLOOD SPECIMENOrdering Facility: [facility] Address:[address] [place], [place] [address]Performed By: #### 04810-1, 43319-6, 2777-1 ####[facility] LABCLIA [id number], [place] [address] [place] AMERICAALP [Catalytic activity/Vol]288 U/KHlzl88-522PtcztcghhTri[facility] [facility] on above:Order Comment: Specimen Type: BLOOD SPECIMENOrdering Facility: [facility] Address:[address] [place], [place] [address]Performed By: #### 08671-8, 08620-2, 2776-04 ####[facility] LABCLIA [id number] [address] [place] OF AMERICAALT [Catalytic activity/Vol]28 U/HHsqboi47-52EdwgdsoftTriHealth [facility] on above:Order Comment: Specimen Type: BLOOD SPECIMENOrdering Facility: [facility] Address:[address] [place], [place] [address]Performed By: #### 93798-1, 71908-3, 2776-04 ####[facility] LABCLIA [id number] VILLE [address] [place] AMERICAAnion gap [Moles/Vol]10 mmol/L Normal8-15[facility] on above:Order Comment: Specimen Type: BLOOD SPECIMENOrdering Facility: [facility] Address:[address] [place], [place] [address]Performed By: #### 22798-3, 22571-1, 2776-04 ####[facility] LABCLIA [id number] VILLE [address] [place] AMERICAAST [Catalytic activity/Vol]27 U/CTbfsvo86-93TwlufihicTriHealth [facility] on above:Order Comment: Specimen Type: BLOOD SPECIMENOrdering Facility: [facility] Address:[address] [place], [place] [address]Performed By: #### 16421-9, 09720-3, 2776-04 ####[facility] LABIA [id number] [address] [place] AMERICABilirubin [Mass/Vol]0.2 mg/dL Normal0.2-1.3CFostoria City Hospital on above:Order Comment: Specimen Type: BLOOD SPECIMENOrdering Facility: [facility] Address:[address] [place], [place] [address]Performed By: #### 96437-9, , 2776-04 ####[facility] LABCLIA [id number] [address] [place] AMERICACalcium [Mass/Vol]8.3 mg/dLLow 8.5-10.2CFostoria City Hospital on above:Order Comment: Specimen Type: BLOOD SPECIMENOrdering Facility: [facility] Address:[address] [place], [place] [address]Performed By: #### 59562-7, , 2776-04 ####[facility] LABCLIA [id number] VILLE [address] [place] AMERICAChloride [Moles/Vol]101 mmol/L Ehvfyz52-059RucjhbzfiTriHealth [facility]ull[facility] on above:Order Comment: Specimen Type: BLOOD SPECIMENOrdering Facility: [facility] Address:[address] [place], [place] [address]Performed By: #### 08213-6, , 2776-04 ####[facility] LABIA [id number] VILLE [address] [place] AMERICACO2 [Moles/Vol]21 mmol/DBgf96-73 [facility] on above:Order Comment: Specimen Type: BLOOD SPECIMENOrdering Facility: [facility] Address:[address] [place], [place] [address]Performed By: #### 69377-5, , 2776-04 ####[facility] LABIA [id number] VILLE [address] [place] AMERICACreatinine [Mass/Vol]0.66 mg/dLLow0.73-1.22 [facility] on above:Order Comment: Specimen Type: BLOOD SPECIMENOrdering Facility: [facility] Address:[address] [place], [place] [address]Performed By: #### 88707-7, , 2776-04 ####[facility] LABCLIA [id number] VILLE [address] [place] OF AMERICAeGFRcr SerPlBld CKD-EPI 7368772 mL/min/1.73m??? Normal>=60[facility] on above:Order Comment: Specimen Type: BLOOD SPECIMENOrdering Facility: [facility] Address:[address] [place], [place] [address]Result Comment: Estimated Glomerular Filtration Rate (eGFR) is calculated using the 2020 CKD-EPI creatinine equation. This equation utilizes serum creatinine, sex, and age as parameters. The creatinine assay has traceable calibration to isotope dilution-mass spectrometry. Refer to KDIGO guidelines for clinical interpretation. In patients with unstable renal function, e.g. those with acute kidney injury, the eGFR may not accurately reflect actual GFR.Performed By: #### 47468-3, 61865-8, 2776- ####[facility] [id number] VILLE [address] [place] AMERICAGlucose [Mass/Vol]118 mg/bXXqgz22-86TbklmsmufTriHealth McCullough-Hy[facility] on above:Order Comment: Specimen Type: BLOOD SPECIMENOrdering Facility: [facility] Address:[address] [place], [place] [address]Result Comment: The [place] Diabetes Association (ADA) provides guidance for cutoff [...] unequivocal hyperglycemia, results should be confirmed by repeattesting. In a patient with classic symptoms of hyperglycemia or hyperglycemic crisis, random plasmaglucose results greater than or equal to 200 mg/dL meet the criteria for diagnosis of diabetes.Reference: Standards of Medical Care in Diabetes 2016, [employer] [place] [employer]. Diabetes Care. 2016.39(Suppl 1).Performed By: #### 20400- 8, 63596-0, 2777- ####[facility] [id number] [address] [place] AMERICAPotassium [Moles/Vol] 4.4 mmol/LNormal3.7-5.1CFostoria City Hospital on above:Order Comment: Specimen Type: BLOOD SPECIMENOrdering Facility: [facility] Address:[address] [place], [place] [address]Performed By: #### 43001-0, 22205-9, 277- ####[facility] LABCLIA [id number] [place] [address] [place] AMERICAProtein [Mass/Vol]5.3 g/dLLow 6.3-8.0[facility] on above:Order Comment: Specimen Type: BLOOD SPECIMENOrdering Facility: [facility] Address:[address] [place], [place] [address]Performed By: #### 02051-9, 16150-7, 277- ####[facility] LABCLIA [id number] VILLE [address] [facility] OF AMERICASodium [Moles/Vol]132 mmol/LLow 136-144[facility] on above:Order Comment: Specimen Type: BLOOD SPECIMENOrdering Facility: [facility] Address:[address] [place], [place] [address]Performed By: #### 38554-5, 04130-4, 2776-04 ####[facility] LABCLIA [id number] VILLE [address] [place] AMERICAUrea nitrogen [Mass/Vol]20 mg/dL Normal9-24[facility] on above:Order Comment: Specimen Type: BLOOD SPECIMENOrdering Facility: [facility] Address:[address] [place], [place] [address]Performed By: #### 38847-5, 39562-6, 2776-1 ####[facility] LABCLIA [id number] [place] [address] [place] AMERICAMagnesium SerPl-mCncon 01-13-2025 Magnesium [Mass/Vol]1.6 mg/dLLow1.7-2.3ClevelFormerly Vidant Roanoke-Chowan HospitalComment on above:Order Comment: Specimen Type: BLOOD SPECIMENOrdering Facility: [facility] Address:[address] [place], [place] [address]Performed By: #### 92306-2, 35763-4, 2777-1 ####[facility] LABCLIA [id number] [facility] [place] [address] [facility] [place]I NURSING PROGon 59-15-7895YLOTJQI PROGNormalOur Lady Of Mercy Hospital - AndersonNUTRITIONon 73-50-7916JPQUPZHUEApzujiTizpmksge Clinic ClevelandPhosphate SerPl-[facility] Hospital - Johnstownon 94-25-1072Maodhuggr [Mass/Vol]4.1 mg/dLNormal2.7-4.8ClevelFormerly [facility] Comment on above:Order Comment: Specimen Type: BLOOD SPECIMENOrdering Facility: [facility] Address:[address] [place] [address] Performed By: #### 10724-1, 20680-8, 2777-1 ####[facility] LABCLIA [id number] [place] [address] [facility] HOSPITALTHERAPY NTon 09-67-5652YTZPFDA NTNormalCWestern Reserve Hospital Tacrolimus Bld-ncon 93-27-4768Bkbnzusagt (Bld) [Mass/Vol]9.2 ng/mLNormal 5.0-20.0[facility] on above:Order Comment: Specimen Type: BLOOD SPECIMENOrdering Facility: [facility] Address:[address] [place] [address]Hgafna Comment: Individualized target levels for a given patient will depend on many factors (including the type of organ transplant, time since transplantation, concurrent medications, and other clin ical factors), and should be assessed by those health care providers experienced in the management of immunosuppression. Reference ranges and high/low indicator flags are provided as general guidelines only. The treating physician must determine appropriate target levels/dosing based on the specific clinical situation. Test performed by chemiluminescent immunoassay using [employer] i.Performed By: #### 93249-2 ####[facility] LABCLIA [id number] [place] [address] [place] CBC W Auto Differential panel (Bld)on 99-44-5685Dxyawjybkdss Ql (Bld)Present NormalTriHealth McCullough-[facility] on above:Order Comment: Specimen Type: BLOOD SPECIMENOrdering Facility: [facility] Address:[address] [place], [place] [address]Performed By: #### 29945-6 ####[facility] LABCLIA [id number] [place] [address] [place] AMERICABasophils (Bld) [#/Vol]0.00 10*3/uLNormal<0.11ClevelPremier Health Miami Valley Hospital on above:Order Comment: Specimen Type: BLOOD SPECIMENOrdering Facility: [facility] Address:[address] [place], [place] [address]Performed By: #### 26528-8 ####[facility] LABIA [id number] [place] [address] [place] Basophils/100 WBC (Bld)0.0 %NormalTriHealth McCullough-[facility] on above: Order Comment: Specimen Type: BLOOD SPECIMENOrdering Facility: [facility] Address:[address] [place], [place] [address]Performed By: #### 82309- 8 ####[facility] LABCLIA [id number] [place] [address] [place] AMERICADifferential cell count method Nom (Bld)ManualNormalClevelPremier Health Miami [facility] on above:Order Comment: Specimen Type: BLOOD SPECIMENOrdering Facility: [facility] Address:[address] [place], [place] [address]Performed By: #### 36597-2 ####[facility] LABCLIA [id number] [place] [address] [place] AMERICAEosinophils (Bld) [#/Vol]0.11 10*3/uLNormal<0.46[facility] on above:Order Comment: Specimen Type: BLOOD SPECIMENOrdering Facility: [facility] Address:[address] [place], [place] [address]Performed By: #### 10344-9 ####[facility] LABCLIA [id number] [place] [address] [place] [facility]ENT[facility] HOSPITALEosinophils/100 WBC (Bld)1.0 % NormalTriHealth McCullough-Hyde [facility] on above:Order Comment: Specimen Type: BLOOD SPECIMENOrdering Facility: [facility] Address:[address] [place], [place] [address]Performed By: #### 52666-2 ####[facility] LABIA [id number] [address], [place] [address] [place] AMERICAErythrocyte distribution width (RBC) [Ratio]19.2 %High11.5-15.0 [facility] on above:Order Comment: Specimen Type: BLOOD SPECIMENOrdering Facility: [facility] Address:[address] [place], [place] [address]Performed By: #### 70647-3 ####[facility] LABIA [id number] [place] [address] [place] AMERICAHematocrit (Bld) [Volume fraction]24.3 %Low39.0-51.0[facility] on above:Order Comment: Specimen Type: BLOOD SPECIMENOrdering Facility: [facility] Address:[address] [place], [place] [address]Performed By: #### 18977-0 ####[facility] LABIA [id number] [place] [address] [place] Hemoglobin (Bld) [Mass/Vol]7.3 g/dLLow13.0-17.0[facility] on above:Order Comment: Specimen Type: BLOOD SPECIMENOrdering Facility: [facility] Address:[address] [place], [place] [address] Performed By: #### 08777-4 ####[facility] LABCLIA [id number] [place] [address] [place] [facility] Lymphocytes (Bld) [#/Vol]0.54 10*3/uLLow1.00-4.00[facility] Comment on above:Order Comment: Specimen Type: BLOOD SPECIMENOrdering Facility: [facility] Address:[address] [place] [address] Performed By: #### 23688-9 ####[facility] LABCLIA [id number] [address] STATES OF [facility] Lymphocytes/100 WBC (Bld)5.0 %NormalOur Lady Of Mercy Hospital - AndersonComment on above: Order Comment: Specimen Type: BLOOD SPECIMENOrdering Facility: [facility] Address:[address] [place], [place] [address]Performed By: #### 02383- 8 ####[facility] LABCLIA [id number] [address] (RBC) [Entitic mass]30.5 pg Gpmkml85.0-34.0[facility] - AndersonComment on above:Order Comment: Specimen Type: BLOOD SPECIMENOrdering Facility: [facility] Address:[address] [place], [place] [address]Performed By: #### 31171-0 ####[facility] LABCLIA [id number] [address] (RBC) [Mass/Vol]30.0 g/dLLow 30.5-36.0[facility] - AndersonComeaton rapids medical [facility] on above:Order Comment: Specimen Type: BLOOD SPECIMENOrdering Facility: [facility] Address:[address] [place], [place] [address]Performed By: #### 00840-2 ####[facility] LABCLIA [id number] [address], [place] [address] [place] AMERICAMCV (RBC) [Entitic vol]101.7 sHXeov30.0-100.0[facility] on above:Order Comment: Specimen Type: BLOOD SPECIMENOrdering Facility: [facility] Address:[address] [place], [place] [address]Performed By: #### 75992-7 ####[facility] LABCLIA [id number] [address], [place] [address] [place] AMERICAMetamyelocytes/100 WBC (Bld)1.0 %NormalTriHealth McCullough-[facility] on above:Order Comment: Specimen Type: BLOOD SPECIMENOrdering Facility: [facility] Address:[address] [place] [address] Performed By: #### 25436-1 ####[facility] LABCLIA [id number] [address], [place] [address] [place] Monocytes (Bld) [#/Vol]1.18 10*3/uLHigh<0.87[facility] on above:Order Comment: Specimen Type: BLOOD SPECIMENOrdering Facility: [facility] Address:[address] [place], [place] [address]Performed By: #### 87477-3 ####[facility] LABCLIA [id number] [address], [place] [address] [place] AMERICAMonocytes/100 WBC (Bld)11.0 %NormalTriHealth [facility]ull[facility] on above:Order Comment: Specimen Type: BLOOD SPECIMENOrdering Facility: [facility] Address:[address] [place], [place] [address]Performed By: #### 01765-6 ####[facility] LABCLIA [id number] [place] [address] [place] AMERICAMYELO%1.0 %NormalTriHealth McCullough-[facility] on above:Order Comment: Specimen Type: BLOOD SPECIMENOrdering Facility: [facility] Address:[address] [place], [place] [address]Performed By: #### 21964-8 ####[facility] LABCLIA [id number] [address], [place] [address] [place] Neutrophils (Bld) [#/Vol]8.68 10*3/uLHigh1.45-7.50[facility] Comment on above:Order Comment: Specimen Type: BLOOD SPECIMENOrdering Facility: [facility] Address:[address] [place] [address] Performed By: #### 51414-4 ####[facility] LABCLIA [id number] [address], [place] [address] [place] Neutrophils/100 WBC (Bld)81.0 %NormalTriHealth McCull[facility] on above: Order Comment: Specimen Type: BLOOD SPECIMENOrdering Facility: [facility] Address:[address] [place], [place] [address]Performed By: #### 09033- 8 ####[facility] LABIA [id number] [place] [address] [place] AMERICANucleated RBC (Bld) [#/Vol] 10*3/uLNormal<0.01[facility] on above:Order Comment: Specimen Type: BLOOD SPECIMENOrdering Facility: [facility] Address:[address] [place], [place] [address]Performed By: #### 27310-3 ####[facility] LABIA [id number] [place] [address] [place] AMERICANucleated RBC/100 WBC (Bld) [Ratio]0.0 /100 WBCNormalCFostoria City Hospital on above:Order Comment: Specimen Type: BLOOD SPECIMENOrdering Facility: [facility] Address:[address] [place], [place] [address]Performed By: #### 40662- 8 ####[facility] LABCLIA [id number] [address], [facility]95 [place] AMERICAOvalocytes LM Ql (Bld)FewNormal [facility] on above:Order Comment: Specimen Type: BLOOD SPECIMENOrdering Facility: [facility] Address:[address] [place], [place] [address]Performed By: #### 26430-3 ####[facility] LABCLIA [id number] [place] [address] [place] AMERICAPlatelet mean volume (Bld) [Entitic vol]10.1 fLNormal9.0-12.7CFostoria City Hospital on above:Order Comment: Specimen Type: BLOOD SPECIMENOrdering Facility: [facility] Address:[address] [place], [place] [address]Performed By: #### 35905-3 ####[facility] LABIA [id number] [place] [address] [place] AMERICAPlatelets (Bld) [#/Vol]371 10*3/cLJggpwu987-176TxycqsdndOur Lady Of [facility] Comment on above:Order Comment: Specimen Type: BLOOD SPECIMENOrdering Facility: [facility] Address:[address] [place] [address] Performed By: #### 86014-0 ####[facility] LABIA [id number] [place] [address] [place] Platelets Estimate (Bld) [#/Vol]AdequateNormalCFostoria City Hospital on above:Order Comment: Specimen Type: BLOOD SPECIMENOrdering Facility: [facility] Address:[address] [place] [address] Performed By: #### 57372-6 ####[facility] LABIA [id number] [place] [address] [place] RBC (Bld) [#/Vol]2.39 10*6/uLLow4.20-6.00[facility] on above:Order Comment: Specimen Type: BLOOD SPECIMENOrdering Facility: [facility] Address:[address] [place], [place] [address]Performed By: #### 10436-2 ####[facility] LABCLIA [id number] [address] [place] [address] [place] AMERICARED CELL MORPH Reviewed: see results of individual [facility] Comment on above:Order Comment: Specimen Type: BLOOD SPECIMENOrdering Facility: [facility] Address:[address] [place] [address] Performed By: #### 47212-6 ####[facility] LABCLIA [id number] [place] [address] [place] WBC (Bld) [#/Vol]10.71 10*3/uLNormal3.70-11.00[facility] AndersonComment on above:Order Comment: Specimen Type: BLOOD SPECIMENOrdering Facility: [facility] Address:[address] [place] [address] Performed By: #### 20968-2 ####[facility] LABCLIA [id number] [place] [address] [place] WBC Left Shift Ql (Bld)[facility] HospitalComment on above: Order Comment: Specimen Type: BLOOD SPECIMENOrdering Facility: [facility] Address:[address] [place], [place] [address]Performed By: #### 63373- 8 ####[facility] LABCLIA [id number] [place] [address] [place] AMERICAComprehensive metabolic 2000 panelon 26-73-2927Ufzqyms [Mass/Vol]2.1 g/dLLow3.9-4.9CWestern Reserve Hospital Comment on above:Order Comment: Specimen Type: BLOOD SPECIMENOrdering Facility: [facility] Address:[address] [place] [address] Performed By: #### 27564-2, 11641-0, 2777-1 ####[facility] LABCLIA [id number] VILLE [address] [place] AMERICAALP [Catalytic activity/Vol]300 U/WMkiy06-365DkqlizbswOur Lady Of [facility] Comment on above:Order Comment: Specimen Type: BLOOD SPECIMENOrdering Facility: [facility] Address:[address] [place] [address] Performed By: #### 45969-3, , 2776-04 ####[facility] LABCLIA [id number] [address] [address] [place] AMERICAALT [Catalytic activity/Vol]30 U/XYszxfj73-88XaqyqrfdhOur Lady Of [facility]cy [facility] Comment on above:Order Comment: Specimen Type: BLOOD SPECIMENOrdering Facility: [facility] Address:[address] [place] [address] Performed By: #### 72294-0, , 2776-04 ####[facility] LABCLIA [id number] [place] [id number] [place] AMERICAAnion gap [Moles/Vol]12 mmol/LNormal8-15[facility] AndersonComment on above:Order Comment: Specimen Type: BLOOD SPECIMENOrdering Facility: [facility] Address:[address] [place] [address] Performed By: #### 29253-2, , 2776-04 ####[facility] LABCLIA [id number] [address] [address] [place] AMERICAAST [Catalytic activity/Vol]27 U/BXcwqaj03-63PkwnaskvjOur Lady Of [facility]cy [facility] Comment on above:Order Comment: Specimen Type: BLOOD SPECIMENOrdering Facility: [facility] Address:[address] [place], [place] [address] Performed By: #### 20601-7, , 2776-04 ####[facility] LABCLIA [id number] [address] [address] [place] AMERICABilirubin [Mass/Vol]0.3 mg/dLNormal0.2-1.3CWestern Reserve Hospital Comment on above:Order Comment: Specimen Type: BLOOD SPECIMENOrdering Facility: [facility] Address:[address] [place], [place] [address] Performed By: #### 98356-7, 71836-5, 2776-04 ####[facility] LABCLIA [id number] [address] [place] AMERICACalcium [Mass/Vol]8.7 mg/dLNormal8.5-10.2ClevelFormerly [facility] Comment on above:Order Comment: Specimen Type: BLOOD SPECIMENOrdering Facility: [facility] Address:[address] [place], [place] [address] Performed By: #### 52205-9, , 2776-04 ####[facility] LABCLIA [id number] [place] [address] [place] AMERICAChloride [Moles/Vol]101 mmol/WXxvmzf35-401IgqnuomyxOur [facility] Comment on above:Order Comment: Specimen Type: BLOOD SPECIMENOrdering Facility: [facility] Address:[address] [place], [place] [address] Performed By: #### 75461-1, , 2776-04 ####[facility] LABCLIA [id number] VILLE [address] [place] AMERICACO2 [Moles/Vol]23 mmol/NTclpkh14-99NftjnknrpOur Lady Of Mer[facility] Hospital - AndersonComment on above:Order Comment: Specimen Type: BLOOD SPECIMENOrdering Facility: [facility] Address:[address] [place], [place] [address]Performed By: #### 46188-6, , 2776-04 ####[facility] LABCLIA [id number] [address] [place] Creatinine [Mass/Vol]0.71 mg/dLLow0.73-1.22[facility] AndersonComment on above:Order Comment: Specimen Type: BLOOD SPECIMENOrdering Facility: [facility] Address:[address] [place], [place] [address]Performed By: #### 26386-4, 79300-2, 2776-04 ####[facility] LABCLIA [id number] VIL[place] [address] [place] eGFRcr SerPlBld CKD-EPI 166193 mL/min/1.73m???Normal>=60[facility] on above:Order Comment: Specimen Type: BLOOD SPECIMENOrdering Facility: [facility] Address:[address] [place], [place] [address]Result Comment: Estimated Glomerular Filtration Rate (eGFR) is [...] accurately reflect actual GFR. Performed By: #### 27119-8, , 2776-04 ####[facility] LABIA [id number] VILLE [address] [place] [facility] HOSPITALGlucose [Mass/Vol]119 mg/jAXbau07-62MfjrvsoxxTriHealth [facility] on above:Order Comment: Specimen Type: BLOOD SPECIMENOrdering Facility: [facility] Address:[address] [place], [place] [address]Result Comment: The [place] Diabetes Association (ADA) provides guidance for cutoff [...] unequivocal hyperglycemia, results should be confirmed by repeattesting. In a patient with classic symptoms of hyperglycemia or hyperglycemic crisis, random plasmaglucose results greater than or equal to 200 mg/dL meet the criteria for diagnosis of diabetes.Reference: Standards of Medical Care in Diabetes 2016, [employer] [place] Diabetes [employer]. Diabetes Care. 2016.39(Suppl 1).Performed By: #### 30063-8, 91904-4, 2776-04 ####[facility] LABCLIA [id number] [address] [place] OF AMERICAPotassium [Moles/Vol]4.4 mmol/LNormal3.7-5.1 [facility] on above:Order Comment: Specimen Type: BLOOD SPECIMENOrdering Facility: [facility] Address:[address] [place], [place] [address]Performed By: #### 13094-8, , 2776-04 ####[facility] LABIA [id number] [address] [place] AMERICAProtein [Mass/Vol]5.3 g/dLLow6.3-8.0[facility] on above:Order Comment: Specimen Type: BLOOD SPECIMENOrdering Facility: [facility] Address:[address] [place], [place] [address]Performed By: #### 20177-7, 44370-8, 2776-04 ####[facility] LABIA [id number] VILLE [address] [place] AMERICASodium [Moles/Vol]136 mmol/IYtenav069-415KwlmzcntfTriHealth [facility] on above:Order Comment: Specimen Type: BLOOD SPECIMENOrdering Facility: [facility] Address:[address] [place], [place] [address]Performed By: #### 35651-8, , 2776-04 ####[facility] LABIA [id number] [address] [place] AMERICAUrea nitrogen [Mass/Vol]17 mg/dLNormal9-24 [facility] on above:Order Comment: Specimen Type: BLOOD SPECIMENOrdering Facility: [facility] Address:[address] [place], [place] [address]Performed By: #### 20941-5, 03580-4, 2776-04 ####[facility] LABCLIA [id number] [place] [address] [place] AMERICAMagnesium SerPl-mCncon 07-91-7766Yfnkmwlzo [Mass/Vol]1.9 mg/dLNormal1.7-2.3ClevelPremier Health Miami Valley Hospital on above:Order Comment: Specimen Type: BLOOD SPECIMENOrdering Facility: [facility] Address:[address] [place], [place] [address]Performed By: #### 52541- 8, 17998-2, 2777-1 ####[facility] LABCLIA [id number] [address] [place] AMERICAPhosphate SerPl-mCnc on 62-82-2790Vmxcqhdif [Mass/Vol]4.5 mg/dLNormal2.7-4.8ClevelPremier Health Miami [facility] on above:Order Comment: Specimen Type: BLOOD SPECIMENOrdering Facility: [facility] Address:[address] [place], [place] [address]Performed By: #### 13089-1, 93741-9, 2777-1 ####[facility] LABCLIA [id number] [address] [place] AMERICATYPE + SCREENon 75-65-8436KOETQwrsweEmkrrxlhc Clinic [facility] Comment on above:Order Comment: Specimen Type: BLOOD SPECIMENOrdering Facility: [facility] Address:[address] [place] [address] Performed By: #### TSCR ####CC MAIN BLOOD BANKCLIA [id number] [place] [id number] [place] OF AMERICARh Nom (Bld)Positive NormalTriHealth [facility]ull[facility] on above:Order Comment: Specimen Type: BLOOD SPECIMENOrdering Facility: [facility] Address:[address] [place], [place] [address]Performed By: #### TSCR ####CC MAIN BLOOD BANKCLIA [id number] [place] [address] [place] AMERICATYPE AND SCREEN WQGDJUWPGI97/01/2025 23:59NormalCFostoria City Hospital on above:Order Comment: Specimen Type: BLOOD SPECIMENOrdering Facility: [facility] Address:[address] [place], [place] [address]Performed By: #### TSCR ####[facility] BLOOD BANKIA [id number] [place] [address] [place] [facility]ENTOR HOSPITALTacrolimus Bld-mCncon 45-15-1835Mupgdzhszi (Bld) [Mass/Vol]10.6 ng/mLNormal5.0-20.0[facility] on above:Order Comment: Specimen Type: BLOOD SPECIMENOrdering Facility: [facility] Address:[address] [place], [place] [address]Result Comment: Individualized target levels for a given [...] situation. Test performed by chemiluminescent immunoassay using [employer] i.Performed By: #### 16406-3 ####[facility] LABCLIA [id number] [place] [address] [place] AMERICACBC W Auto Differential panel (Bld)on 10-06-2636Cyrrdoddtnxf Ql (Bld)PresentNoMain Campus Medical Center Comment on above:Order Comment: Specimen Type: BLOOD SPECIMENOrdering Facility: [facility] Address:[address] [place] [address] Performed By: #### 71838-8 ####[facility] LABIA [id number] [place] [address] [place] Basophils (Bld) [#/Vol]0.11 10*3/uLHigh<0.11CFostoria City Hospital on above:Order Comment: Specimen Type: BLOOD SPECIMENOrdering Facility: [facility] Address:[address] [place], [place] [address]Performed By: #### 98125-8 ####[facility] LABCLIA [id number] [place] [address] [place] AMERICABasophils/100 WBC (Bld)0.9 %NormalTriHealth McCullough-[facility] on above:Order Comment: Specimen Type: BLOOD SPECIMENOrdering Facility: [facility] Address:[address] [place], [place] [address]Performed By: #### 78475-7 ####[facility] LABIA [id number] [place] [address] [place] AMERICADifferential cell count method Nom (Bld)ManualNormalCFostoria City Hospital on above:Order Comment: Specimen Type: BLOOD SPECIMENOrdering Facility: [facility] Address:[address] [place], [place] [address]Performed By: #### 79739-9 ####[facility] LABIA [id number] [place] [address] [place] AMERICAEosinophils (Bld) [#/Vol]0.00 10*3/uLNormal<0.46[facility] on above:Order Comment: Specimen Type: BLOOD SPECIMENOrdering Facility: [facility] Address:[address] [place], [place] [address]Performed By: #### 74057-3 ####[facility] LABIA [id number] [place] [address] [place] AMERICAEosinophils/100 WBC (Bld)0.0 % NormalTriHealth McCullough-Hyde Memorial Hospital on above:Order Comment: Specimen Type: BLOOD SPECIMENOrdering Facility: [facility] Address:[address] [place], [place] [address]Performed By: #### 76288-7 ####[facility] LABIA [id number] [place] [address] [place] AMERICAErythrocyte distribution width (RBC) [Ratio]19.0 %High11.5-15.0 [facility] on above:Order Comment: Specimen Type: BLOOD SPECIMENOrdering Facility: [facility] Address:[address] [place], [place] [address]Performed By: #### 72774-8 ####[facility] [id number] [place] [address] [place] AMERICAHematocrit (Bld) [Volume fraction]24.0 %Low39.0-51.0[facility] on above:Order Comment: Specimen Type: BLOOD SPECIMENOrdering Facility: [facility] Address:[address] [place], [place] [address]Performed By: #### 09410-0 ####[facility] [id number] [place] [address] [place] Hemoglobin (Bld) [Mass/Vol]7.8 g/dLLow13.0-17.0[facility] on above:Order Comment: Specimen Type: BLOOD SPECIMENOrdering Facility: [facility] Address:[address] [place] [address] Performed By: #### 84743-1 ####[facility] LABIA [id number] [place] [address] [place] Lymphocytes (Bld) [#/Vol]0.32 10*3/uLLow1.00-4.00[facility] Comment on above:Order Comment: Specimen Type: BLOOD SPECIMENOrdering Facility: [facility] Address:[address] [place] [address] Performed By: #### 58930-8 ####[facility] LABIA [id number] [place] [address] [place] Lymphocytes/100 WBC (Bld)2.7 %NormalTriHealth McCullough-[facility] on above: Order Comment: Specimen Type: BLOOD SPECIMENOrdering Facility: [facility] Address:[address] [place], [place] [address]Performed By: #### 91265- 8 ####[facility] LABCLIA [id number] [address] (RBC) [Entitic mass]32.1 pg Vwsfra29.0-34.0[facility] on above:Order Comment: Specimen Type: BLOOD SPECIMENOrdering Facility: [facility] Address:[address] [place], [place] [address]Performed By: #### 47195-8 ####[facility] LABIA [id number] [address], [address] (RBC) [Mass/Vol]32.5 g/dL Mgsjqf66.5-36.0[facility] on above:Order Comment: Specimen Type: BLOOD SPECIMENOrdering Facility: [facility] Address:[address] [place], [place] [address]Performed By: #### 24410-7 ####[facility] LABIA [id number] [address] (RBC) [Entitic vol]98.8 fL Pntlzs05.0-100.0[facility] on above:Order Comment: Specimen Type: BLOOD SPECIMENOrdering Facility: [facility] Address:[address] [place], [place] [address]Performed By: #### 96927-1 ####[facility] LABIA [id number] [address], [facility]95 [facility]–TUSKEGEEMonocytes (Bld) [#/Vol]1.17 10*3/uLHigh<0.87[facility] on above:Order Comment: Specimen Type: BLOOD SPECIMENOrdering Facility: [facility] Address:[address] [place], [place] [address]Performed By: #### 49469-3 ####[facility] LABIA [id number] [address] [address] [place] AMERICAMonocytes/100 WBC (Bld)9.9 % NormalTriHealth McCullough-Hyde Memorial Hospital on above:Order Comment: Specimen Type: BLOOD SPECIMENOrdering Facility: [facility] Address:[address] [place], [place] [address]Performed By: #### 53850-5 ####[facility] LABCLIA [id number] [address], [facility]95 [place] AMERICAMYELO%0.9 %NormalTriHealth McCullough-[facility] on above: Order Comment: Specimen Type: BLOOD SPECIMENOrdering Facility: [facility] Address:[address] [place], [place] [address]Performed By: #### 03320- 8 ####[facility] LABCLIA [id number] [place] [address] [place] AMERICANeutrophils (Bld) [#/Vol]10.12 10*3/uLHigh1.45-7.50[facility] on above:Order Comment: Specimen Type: BLOOD SPECIMENOrdering Facility: [facility] Address:[address] [place], [place] [address]Performed By: #### 71550-2 ####[facility] LABCLIA [id number] [place] [address] [place] AMERICANeutrophils/100 WBC (Bld)85.6 % NormalTriHealth McCullough-Hy[facility] on above:Order Comment: Specimen Type: BLOOD SPECIMENOrdering Facility: [facility] Address:[address] [place], [place] [address]Performed By: #### 93071-3 ####[facility] LABCLIA [id number] [place] [address] [place] AMERICANucleated RBC (Bld) [#/Vol]10*3/uLNormal<0.01[facility] on above:Order Comment: Specimen Type: BLOOD SPECIMENOrdering Facility: [facility] Address:[address] [place], [place] [address]Performed By: #### 66620-9 ####[facility] LABIA [id number] [place] [address] [place] Nucleated RBC/100 WBC (Bld) [Ratio]0.0 /100 WBCNormalCWestern Reserve Hospital Comment on above:Order Comment: Specimen Type: BLOOD SPECIMENOrdering Facility: [facility] Address:[address] [place] [address] Performed By: #### 53500-1 ####[facility] LABIA [id number] [place] [address] [place] Platelet mean volume (Bld) [Entitic vol]10.2 fLNormal9.0-12.7CWestern Reserve HospitalComeaton rapids medical center on above:Order Comment: Specimen Type: BLOOD SPECIMENOrdering Facility: [facility] Address:[address] [place], [place] [address]Performed By: #### 34084-5 ####[facility] LABIA [id number] [place] [address] [place] Platelets (Bld) [#/Vol]366 10*3/hZUxjlej594-997FdlmzefenOur Lady Of Mercy Hospital - AndersonComment on above:Order Comment: Specimen Type: BLOOD SPECIMENOrdering Facility: [facility] Address:[address] [place] [address] Performed By: #### 72804-4 ####[facility] LABIA [id number] [place] [address] [place] Platelets Estimate (Bld) [#/Vol]AdequateNormalCWestern Reserve HospitalComeaton rapids medical center on above:Order Comment: Specimen Type: BLOOD SPECIMENOrdering Facility: [facility] Address:[address] [place] [address] Performed By: #### 37852-3 ####[facility] LABIA [id number] [address] [place] [address] [place] Polychromasia LM Ql (Bld)SlightNormalCFostoria City Hospital on above: Order Comment: Specimen Type: BLOOD SPECIMENOrdering Facility: [facility] Address:[address] [place], [place] [address]Performed By: #### 51549- 8 ####[facility] LABCLIA [id number] [address] [place] [address] [place] [facility] MENTOR HOSPITALRBC (Bld) [#/Vol]2.43 10*6/uLLow 4.20-6.00[facility] - AndersonComment on above:Order Comment: Specimen Type: BLOOD SPECIMENOrdering Facility: [facility] Address:[address] [place], [place] [address]Performed By: #### 22720-5 ####[facility] LABCLIA [id number] [place] [address] [place] CATHOLIC HEALTHRBC FRAGMENTSFewAbnormalNone SeenTriHealth McCullough-[facility] on above:Order Comment: Specimen Type: BLOOD SPECIMENOrdering Facility: [facility] Address:[address] [place], [place] [address]Performed By: #### 36656-8 ####[facility] LABCLIA [id number] [place] [address] [place] RED CELL MORPHReviewed: see results of individual morphologiesPomerene Hospital on above:Order Comment: Specimen Type: BLOOD SPECIMENOrdering Facility: [facility] Address:[address] [place], [place] [address]Performed By: #### 76157-0 ####[facility] LABCLIA [id number] [address] [place] [address] [place] [facility] CL[facility] MENTOR HOSPITALWBC (Bld) [#/Vol]11.82 10*3/uLHigh3.70-11.00[facility] Comment on above:Order Comment: Specimen Type: BLOOD SPECIMENOrdering Facility: [facility] Address:[address] [place] [address] Performed By: #### 65904-7 ####[facility] LABCLIA [id number] [place] [address] [place] WBC Left Shift Ql (Bld)PresentNormalClevelPremier Health Miami Valley Hospital on above: Order Comment: Specimen Type: BLOOD SPECIMENOrdering Facility: [facility] Address:[address] [place], [place] [address]Performed By: #### 57019- 8 ####[facility] LABCLIA [id number] [place] [address] [place] OF AMERICACCF BACTERIA BLD CULTon 55-22-2240KKW BACTERIA BLD CULT CULTURE, BLOOD: No growth 5 days NOMS HealthcareOriginal Ordering Provider: XUAN MORIN HealthcareCRP SerPl-ncon 38-28-3886SLU [Mass/Vol]23.9 mg/dLHigh<0.9ClevelPremier Health Miami Valley Hospital on above:Order Comment: Specimen Type: BLOOD SPECIMENOrdering Facility: [facility] Address:[address] [place], [place] [address]Performed By: #### 89676-3, 1987-08, , 2776-04 ####[facility] LABCLIA [id number] [place] [address] [place] AMERICAComprehensive metabolic 2000 panelon 32-72-0141Nsixulr [Mass/Vol]2.2 g/dLLow3.9-4.9ClevelFormerly [facility] Comment on above:Order Comment: Specimen Type: BLOOD SPECIMENOrdering Facility: [facility] Address:[address] [place] [address] Performed By: #### 11222-3, 1987-08, , 2776-04 ####[facility] LABCLIA [id number] [place] [address] [place] OF AMERICAALP [Catalytic activity/Vol]321 U/RQvwq94-903FehhwvwlbTriHealth McCullough-[facility] on above:Order Comment: Specimen Type: BLOOD SPECIMENOrdering Facility: [facility] Address:[address] [place], [place] [address]Performed By: #### 88773-9, 1987-08, , 2776-04 ####[facility] LABCLIA [id number] [place] [address] [place] AMERICAALT [Catalytic activity/Vol]31 U/ZDbtzlc38-99UblezibjzTriHealth [facility]ull[facility] on above:Order Comment: Specimen Type: BLOOD SPECIMENOrdering Facility: [facility] Address:[address] [place], [place] [address]Performed By: #### 80510-2, 1987-08, , 2776-04 ####[facility] LABCLIA [id number] [place] [address] [place] AMERICAAnion gap [Moles/Vol]12 mmol/L Normal8-15[facility] on above:Order Comment: Specimen Type: BLOOD SPECIMENOrdering Facility: [facility] Address:[address] [place], [place] [address]Performed By: #### 99627-5, 1987-08, , 2776-04 ####[facility] LABIA [id number] [place] [address] [place] AMERICAAST [Catalytic activity/Vol]28 U/HLcyfwn57-56JqvurbxcbTriHealth McCullough-[facility] on above:Order Comment: Specimen Type: BLOOD SPECIMENOrdering Facility: [facility] Address:[address] [place], [place] [address]Performed By: #### 54369-1, 1987-08, , 2776-04 ####[facility] LABIA [id number] [place] [address] [place] AMERICABilirubin [Mass/Vol]0.4 mg/dL Normal0.2-1.3CFostoria City Hospital on above:Order Comment: Specimen Type: BLOOD SPECIMENOrdering Facility: [facility] Address:[address] [place] [address]Szbqtmdgw By: #### 47820-9, 1987-08, , 2776-04 ####[facility] LABCLIA [id number] [address] [address] [place] AMERICACalcium [Mass/Vol]8.5 mg/dL Normal8.5-10.2CFostoria City Hospital on above:Order Comment: Specimen Type: BLOOD SPECIMENOrdering Facility: [facility] Address:[address] [place] [address]Izyzfvmyq By: #### 73282-4, 1987-08, , 2776-04 ####[facility] LABCLIA [id number] [place] [address] [place] AMERICAChloride [Moles/Vol]102 mmol/L Umwomh07-538QzgqtykuuTriHealth McCullough-[facility] on above:Order Comment: Specimen Type: BLOOD SPECIMENOrdering Facility: [facility] Address:[address] [place] [address]Wwzgwwmef By: #### 32578-7, 1987-08, , 2776-04 ####[facility] LABCLIA [id number] [place] [address] [place] AMERICACO2 [Moles/Vol]22 mmol/LNormal 22-30[facility] on above:Order Comment: Specimen Type: BLOOD SPECIMENOrdering Facility: [facility] Address:[address] [place] [address]Kzvwuaxrh By: #### 83408-4, 1987-08, , 2776-04 ####[facility] LABCLIA [id number] [address] [address] [place] AMERICACreatinine [Mass/Vol]0.62 mg/dL Low0.73-1.22[facility] on above:Order Comment: Specimen Type: BLOOD SPECIMENOrdering Facility: [facility] Address:[address] [place], [place] [address]Performed By: #### 65536-8, 1987-08, , 2776-04 ####[facility] LABIA [id number] [place] [address] [place] OF AMERICAeGFRcr SerPlBld CKD-EPI 2056543 mL/min/1.73m???Normal>=60[facility] on above:Order Comment: Specimen Type: BLOOD SPECIMENOrdering Facility: [facility] Address:[address] [place], [place] [address]Result Comment: Estimated Glomerular Filtration Rate (eGFR) is calculated using the 2020 CKD-EPI cre atinine equation. This equation utilizes serum creatinine, sex, and age as parameters. The creatinine assay has traceable calibration to isotope dilution- mass spectrometry. Refer to KDIGO guidelines for clinical interpretation. In patients with unstable renal function, e.g. those with acute kidney injury, the eGFR may not accurately reflect actual GFR.Performed By: #### 26052-1, 1987-08, , 2776-04 ####[facility] LABIA [id number] [place] [address] [place] AMERICAGlucose [Mass/Vol]105 mg/eQDsel15-59MdkjqavjvTriHealth McCullough-[facility] on above:Order Comment: Specimen Type: BLOOD SPECIMENOrdering Facility: [facility] Address:[address] [place], [place] [address]Result Comment: The [place] [employer] (ADA) provides guidance for cutoff [...] symptoms of hyperglycemia or hyperglycemic crisis, random plasmaglucose results greater than or equal to 200 mg/dL meet the criteria for diagnosis of diabetes.Reference: Standards of Medical Care in Diabetes 2016, [employer] [place] [employer]. Diabetes Care. 2016.39(Suppl 1). Performed By: #### 80323-3, 1987-08, , 2776-04 ####[facility] LABCLIA [id number] [place] [address] [place] AMERICAPotassium [Moles/Vol]4.1 mmol/LNormal3.7-5.1CFostoria City Hospital on above:Order Comment: Specimen Type: BLOOD SPECIMENOrdering Facility: [facility] Address:[address] [place], [place] [address]Performed By: #### 83209-0, 1987-08, , 2776-04 ####[facility] LABIA [id number] [place] [address] [place] AMERICAProtein [Mass/Vol]5.3 g/dLLow6.3-8.0[facility] on above:Order Comment: Specimen Type: BLOOD SPECIMENOrdering Facility: [facility] Address:[address] [place], [place] [address]Performed By: #### 59883-7, 1987-08, , 2776-04 ####[facility] [id number] [place] [id number] [place] OF AMERICASodium [Moles/Vol]136 mmol/YHpqarf597-220FddhdegbxTriHealth [facility] on above:Order Comment: Specimen Type: BLOOD SPECIMENOrdering Facility: [facility] Address:[address] [place], [place] [id number] By: #### 54249-6, 1987-08, , 2776-04 ####[facility] [id number] [place] [address] [place] OF AMERICAUrea nitrogen [Mass/Vol]19 mg/dL Normal9-24[facility] on above:Order Comment: Specimen Type: BLOOD SPECIMENOrdering Facility: [facility] Address:[address] [place], [place] [address]Performed By: #### 93146-5, 1987-08, , 2776-04 ####[facility] LABCLIA [id number] [place] [address] [place] AMERICAMagnesium SerPl-mCncon 42-98-3477Fhcbpspdm [Mass/Vol]1.5 mg/dLLow1.7-2.3CWestern Reserve Hospital Comment on above:Order Comment: Specimen Type: BLOOD SPECIMENOrdering Facility: [facility] Address:[address] [place], [place] [address] Performed By: #### 34914-0, 1987-08, , 2776-04 ####[facility] LABCLIA [id number] [place] [address] [place] AMERICAPhosphate SerPl-ncon 78-73-8917Mttxoczui [Mass/Vol]4.5 mg/dL Normal2.7-4.8ClevelFormerly Vidant Roanoke-Chowan HospitalComment on above:Order Comment: Specimen Type: BLOOD SPECIMENOrdering Facility: [facility] Address:[address] [place], [place] [address]Performed By: #### 88254-1, 1987-08, , 2776-04 ####[facility] LABIA [id number] [place] [address] [place] AMERICATacrolimus Bld-mCncon 01-11-2025 Tacrolimus (Bld) [Mass/Vol]8.9 ng/mLNormal5.0-20.0[facility] Comment on above:Order Comment: Specimen Type: BLOOD SPECIMENOrdering Facility: [facility] Address:[address] [place], [place] [address]Result Comment: Individualized target levels for a given [...] situation. Test performed by chemiluminescent immunoassay using [employer] Al[employer] i.Performed By: #### 32728-4 ####[facility] LABIA [id number] [address] [address] [place] AMERICAXR ABDOMEN 1V SUPINEon 18-70-3496SJ ABDOMEN 1V SUPINENormalCNationwide Children's Hospital W Auto Differential panel (Bld)on 80-96-8878Pslmhzhqcmwy Ql (Bld)PresentNoMartins Ferry Hospital on above:Order Comment: Specimen Type: BLOOD SPECIMENOrdering Facility: [facility] Address:[address] [place], [place] [address]Performed By: #### 63325-8 ####[facility] LABIA [id number] [address] [address] [place] AMERICABasophils (Bld) [#/Vol]0.00 10*3/uLNormal<0.11CFostoria City Hospital on above:Order Comment: Specimen Type: BLOOD SPECIMENOrdering Facility: [facility] Address:[address] [place], [place] [address]Performed By: #### 60089- 8 ####[facility] LABIA [id number] [address] [address] [place] AMERICABasophils/100 WBC (Bld)0.0 % NormalTriHealth McCullough-[facility] on above:Order Comment: Specimen Type: BLOOD SPECIMENOrdering Facility: [facility] Address:[address] [place], [place] [address]Performed By: #### 56182-8 ####[facility] LABIA [id number] [place] [address] [place] AMERICADifferential cell count method Nom (Bld)ManualNoMartins Ferry Hospital on above:Order Comment: Specimen Type: BLOOD SPECIMENOrdering Facility: [facility] Address:[address] [place], [place] [address]Performed By: #### 80732-4 ####[facility] LABCLIA [id number] [address], [place] [address] [place] AMERICAEosinophils (Bld) [#/Vol]0.00 10*3/uLNormal<0.46[facility] on above:Order Comment: Specimen Type: BLOOD SPECIMENOrdering Facility: [facility] Address:[address] [place], [place] [address]Performed By: #### 64097-8 ####[facility] LABIA [id number] [place] [address] [place]I Eosinophils/100 WBC (Bld)0.0 %NormalTriHealth [facility]ullough-[facility] on above: Order Comment: Specimen Type: BLOOD SPECIMENOrdering Facility: [facility] Address:[address] [place], [place] [address]Performed By: #### 08036- 8 ####[facility] LABIA [id number] [place] [address] [place] AMERICAErythrocyte distribution width (RBC) [Ratio]19.4 %High11.5-15.0[facility] on above:Order Comment: Specimen Type: BLOOD SPECIMENOrdering Facility: [facility] Address:[address] [place], [place] [address]Performed By: #### 69487- 8 ####[facility] LABIA [id number] [place] [address] [place] AMERICAHematocrit (Bld) [Volume fraction]27.6 %Low39.0-51.0[facility] on above:Order Comment: Specimen Type: BLOOD SPECIMENOrdering Facility: [facility] Address:[address] [place], [place] [address]Performed By: #### 87199- 8 ####[facility] LABIA [id number] [place] [address] [place] AMERICAHemoglobin (Bld) [Mass/Vol]8.4 g/dLLow13.0-17.0[facility] on above:Order Comment: Specimen Type: BLOOD SPECIMENOrdering Facility: [facility] Address:[address] [place], [place] [address]Performed By: #### 54474-3 ####[facility] LABCLIA [id number] [place] [address] [place] AMERICALymphocytes (Bld) [#/Vol]0.55 10*3/uLLow1.00-4.00[facility] on above:Order Comment: Specimen Type: BLOOD SPECIMENOrdering Facility: [facility] Address:[address] [place], [place] [address]Performed By: #### 29122-9 ####[facility] LABCLIA [id number] [place] [address] [place] AMERICALymphocytes/100 WBC (Bld)4.0 % NormalTriHealth McCullough-[facility] on above:Order Comment: Specimen Type: BLOOD SPECIMENOrdering Facility: [facility] Address:[address] [place], [place] [address]Performed By: #### 64492-1 ####[facility] LABCLIA [id number] [place] [address] [place] AMERICAMCH (RBC) [Entitic mass]31.3 wqRvdtik68.0-34.0[facility] on above:Order Comment: Specimen Type: BLOOD SPECIMENOrdering Facility: [facility] Address:[address] [place], [place] [address]Performed By: #### 06480-3 ####[facility] LABCLIA [id number] [place] [address] [place] MCHC (RBC) [Mass/Vol]30.4 g/dLLow30.5-36.0[facility] on above:Order Comment: Specimen Type: BLOOD SPECIMENOrdering Facility: [facility] Address:[address] [place], [place] [address]Performed By: #### 94025-4 ####[facility] LABCLIA [id number] [address], [place] [address] [place] AMERICAMCV (RBC) [Entitic vol]103.0 zYXqpg24.0-100.0[facility] on above:Order Comment: Specimen Type: BLOOD SPECIMENOrdering Facility: [facility] Address:[address] [place], [place] [address]Performed By: #### 52891- 8 ####[facility] LABCLIA [id number] [address], [place] [address] [place] AMERICAMetamyelocytes/100 WBC (Bld)2.0 % NormalTriHealth McCullough-Hyde Memorial Hospital on above:Order Comment: Specimen Type: BLOOD SPECIMENOrdering Facility: [facility] Address:[address] [place], [place] [address]Performed By: #### 73489-3 ####[facility] LABCLIA [id number] [address], [place] [address] [place] AMERICAMonocytes (Bld) [#/Vol]0.41 10*3/uLNormal<0.87[facility] on above:Order Comment: Specimen Type: BLOOD SPECIMENOrdering Facility: [facility] Address:[address] [place], [place] [address]Performed By: #### 39395-4 ####[facility] LABCLIA [id number] [address], [facility]95 [place] Monocytes/100 WBC (Bld)3.0 %NormalTriHealth McCullough-[facility] on above: Order Comment: Specimen Type: BLOOD SPECIMENOrdering Facility: [facility] Address:[address] [place], [place] [address]Performed By: #### 39521- 8 ####[facility] LABCLIA [id number] [address], [facility]95 [place] AMERICAMYELO%2.0 %NormalTriHealth [facility]ull[facility] on above:Order Comment: Specimen Type: BLOOD SPECIMENOrdering Facility: [facility] Address:[address] [place], [place] [address]Performed By: #### 56414-2 ####[facility] LABCLIA [id number] [place] [address] [place] Neutrophils (Bld) [#/Vol]12.15 10*3/uLHigh1.45-7.50[facility] Comment on above:Order Comment: Specimen Type: BLOOD SPECIMENOrdering Facility: [facility] Address:[address] [place] [address] Performed By: #### 72166-0 ####[facility] LABCLIA [id number] [place] [address] [place] Neutrophils/100 WBC (Bld)89.0 %NormalTriHealth McCullough-[facility] on above: Order Comment: Specimen Type: BLOOD SPECIMENOrdering Facility: [facility] Address:[address] [place], [place] [address]Performed By: #### 31316- 8 ####[facility] LABCLIA [id number] [place] [address] [place] AMERICANucleated RBC (Bld) [#/Vol] 10*3/uLNormal<0.01[facility] on above:Order Comment: Specimen Type: BLOOD SPECIMENOrdering Facility: [facility] Address:[address] [place], [place] [address]Performed By: #### 86497-8 ####[facility] LABCLIA [id number] [place] [address] [place] AMERICANucleated RBC/100 WBC (Bld) [Ratio]0.0 /100 WBCNormalCFostoria City Hospital on above:Order Comment: Specimen Type: BLOOD SPECIMENOrdering Facility: [facility] Address:[address] [place], [place] [address]Performed By: #### 20209- 8 ####[facility] LABCLIA [id number] [place] [address] [place] AMERICAOvalocytes LM Ql (Bld)FewNormal [facility] AndersonComeaton rapids [facility] on above:Order Comment: Specimen Type: BLOOD SPECIMENOrdering Facility: [facility] Address:[address] [place], [place] [address]Performed By: #### 45933-8 ####[facility] LABIA [id number] [place] [address] [place] AMERICAPlatelet mean volume (Bld) [Entitic vol]10.6 fLNormal9.0-12.7ClevelPremier Health Miami Valley Hospital on above:Order Comment: Specimen Type: BLOOD SPECIMENOrdering Facility: [facility] Address:[address] [place], [place] [address]Performed By: #### 08044-7 ####[facility] LABIA [id number] [place] [address] [place] AMERICAPlatelets (Bld) [#/Vol]397 10*3/cRWmydhi836-544YxbenifzoOur Lady Of [facility] Comment on above:Order Comment: Specimen Type: BLOOD SPECIMENOrdering Facility: [facility] Address:[address] [place] [address] Performed By: #### 91205-8 ####[facility] LABCLIA [id number] [place] [address] [place] Platelets Estimate (Bld) [#/Vol]AdequateNormalCFostoria City Hospital on above:Order Comment: Specimen Type: BLOOD SPECIMENOrdering Facility: [facility] Address:[address] [place] [address] Performed By: #### 56223-1 ####[facility] LABCLIA [id number] [place] [address] [place] Polychromasia LM Ql (Bld)SlightNormalCFostoria City Hospital on above: Order Comment: Specimen Type: BLOOD SPECIMENOrdering Facility: [facility] Address:[address] [place], [place] [address]Performed By: #### 08504- 8 ####[facility] LABCLIA [id number] [address] [place] [address] [place] AMERICARBC (Bld) [#/Vol]2.68 10*6/uLLow 4.20-6.00[facility] on above:Order Comment: Specimen Type: BLOOD SPECIMENOrdering Facility: [facility] Address:[address] [place], [place] [address]Performed By: #### 48366-2 ####[facility] LABCLIA [id number] [address] [place] [address] [place] AMERICARBC FRAGMENTSFewAbnormalNone SeenTriHealth McCullough-[facility] Hospital on above:Order Comment: Specimen Type: BLOOD SPECIMENOrdering Facility: [facility] Address:[address] [place], [place] [address]Performed By: #### 77167-2 ####[facility] LABCLIA [id number] [address] [place] [address] [place] RED CELL MORPHReviewed: see results of individual morphologiesPomerene Hospital on above:Order Comment: Specimen Type: BLOOD SPECIMENOrdering Facility: [facility] Address:[address] [place], [place] [address]Performed By: #### 07017-5 ####[facility] LABCLIA [id number] [address] [place] [address] [place] [facility] HOSPITALTarget cells LM Ql (Bld)FewNormalCFostoria City Hospital on above:Order Comment: Specimen Type: BLOOD SPECIMENOrdering Facility: [facility] Address:[address] [place], [place] [address]Performed By: #### 46827-2 ####[facility] LABCLIA [id number] [place] [address] [place] AMERICAWBC (Bld) [#/Vol]13.65 10*3/uLHigh3.70-11.00[facility] on above:Order Comment: Specimen Type: BLOOD SPECIMENOrdering Facility: [facility] Address:[address] [place], [place] [address]Performed By: #### 83538-7 ####[facility] LABCLIA [id number] [place] [address] [place] AMERICAWBC Left Shift Ql (Bld)Present NormalTriHealth McCullough-[facility]de Memorial [facility] on above:Order Comment: Specimen Type: BLOOD SPECIMENOrdering Facility: [facility] Address:[address] [place], [place] [address]Performed By: #### 80550-1 ####[facility] LABCLIA [id number] [place] [address] [place] AMERICACONSULT PROGon 40-07-5712FMNCLHI PROGNormalOur [facility] Hospital - AndersonComprehensive metabolic 2000 panelon 43-50-0632Dyymity [Mass/Vol]2.2 g/dLLow3.9-4.9CFostoria City Hospital on above:Order Comment: Specimen Type: BLOOD SPECIMENOrdering Facility: [facility] Address:[address] [place], [place] [address]Performed By: #### 32630-0, , 2776-04 ####[facility] LABCLIA [id number] [address] [place] AMERICAALP [Catalytic activity/Vol]347 U/PVgva24-771PkqjhcemmTriHealth McCullough-[facility] on above:Order Comment: Specimen Type: BLOOD SPECIMENOrdering Facility: [facility] Address:[address] [place], [place] [address]Performed By: #### 79974-7, 67464-9, 2776-1 ####[facility] LABCLIA [id number] AVENUEANDERSON SANATORIUMK [address] [place] [address] [place] AMERICAALT [Catalytic activity/Vol]35 U/TPkrgcn19-36UcqmktiyoTriHealth [facility] on above:Order Comment: Specimen Type: BLOOD SPECIMENOrdering Facility: [facility] Address:[address] [place], [place] [address]Performed By: #### 86851-4, 43059-1, 2776-04 ####[facility] LABCLIA [id number] AVENUEJENNIFER [place] [address] [place] AMERICAAnion gap [Moles/Vol]15 mmol/L Normal8-15[facility] on above:Order Comment: Specimen Type: BLOOD SPECIMENOrdering Facility: [facility] Address:[address] [place], [place] [address]Performed By: #### 72152-1, , 2776-04 ####[facility] LABCLIA [id number] [place] [address] [place] AMERICAAST [Catalytic activity/Vol]38 U/JOayuuz15-17YiqjzfzbvTriHealth McCullough-[facility] on above:Order Comment: Specimen Type: BLOOD SPECIMENOrdering Facility: [facility] Address:[address] [place], [place] [address]Performed By: #### 48836-2, , 2776-04 ####[facility] LABCLIA [id number] [place] [address] [place] OF AMERICABilirubin [Mass/Vol]0.4 mg/dL Normal0.2-1.3CFostoria City Hospital on above:Order Comment: Specimen Type: BLOOD SPECIMENOrdering Facility: [facility] Address:[address] [place], [place] [address]Performed By: #### 59327-9, 68974-7, 2776-04 ####[facility] LABCLIA [id number] [address] [place] [address] [place] AMERICACalcium [Mass/Vol]8.7 mg/dLNormal 8.5-10.2CFostoria City Hospital on above:Order Comment: Specimen Type: BLOOD SPECIMENOrdering Facility: [facility] Address:[address] [place], [place] [address]Performed By: #### 66702-3, 06629-8, 2776-04 ####[facility] LABCLIA [id number] [address] [address] [place] AMERICAChloride [Moles/Vol]101 mmol/L Bliajj80-518PtxmtcdyhTriHealth McCullough-[facility] on above:Order Comment: Specimen Type: BLOOD SPECIMENOrdering Facility: [facility] Address:[address] [place], [place] [address]Performed By: #### 72395-1, , 2776-04 ####[facility] LABCLIA [id number] [address] [place] AMERICACO2 [Moles/Vol]19 mmol/GHan88-48 [facility] on above:Order Comment: Specimen Type: BLOOD SPECIMENOrdering Facility: [facility] Address:[address] [place], [place] [address]Performed By: #### 72475-4, , 2776-04 ####[facility] LABCLIA [id number] [address] [address] [place] AMERICACreatinine [Mass/Vol]0.68 mg/dLLow0.73-1.22 [facility] on above:Order Comment: Specimen Type: BLOOD SPECIMENOrdering Facility: [facility] Address:[address] [place], [place] [address]Performed By: #### 89119-4, , 2776-04 ####[facility] LABCLIA [id number] [address] [address] [place] AMERICAeGFRcr SerPlBld CKD-EPI 718928 mL/min/1.73m??? Normal>=60[facility] on above:Order Comment: Specimen Type: BLOOD SPECIMENOrdering Facility: [facility] Address:[address] [place] [address]Yoawss Comment: Estimated Glomerular Filtration Rate (eGFR) is calculated using the 2020 CKD-EPI creatinine equation. This equation utilizes serum creatinine, sex, and age as parameters. The creatinine assay has traceable calibration to isotope dilution-mass spectrometry. Refer to KDIGO guidelines for clinical interpretation. In patients with unstable renal function, e.g. those with acute kidney injury, the eGFR may not accurately reflect actual GFR.Performed By: #### 45551-6, 05250-8, 2776-04 ####[facility] LABIA [id number] [address] [place] AMERICAGlucose [Mass/Vol]99 mg/zZFtiuhj30-48JxrqvjnwvTriHealth McCullough-[facility] on above:Order Comment: Specimen Type: BLOOD SPECIMENOrdering Facility: [facility] Address:[address] [place], [place] [address] [id number] Comment: The [place] Diabetes [employer] (ADA) provides guidance for cutoff [...] unequivocal hyperglycemia, results should be confirmed by repeattesting. In a patient with classic symptoms of hyperglycemia or hyperglycemic crisis, random plasmaglucose results greater than or equal to 200 mg/dL meet the criteria for diagnosis of diabetes.Reference: Standards of Medical Care in Diabetes 2016, [employer] [place] [employer]. Diabetes Care. 2016.39(Suppl 1).Performed By: #### 21310- 8, , 2776-04 ####[facility] LABIA [id number] [address] [place] AMERICAPotassium [Moles/Vol] 4.4 mmol/LNormal3.7-5.1CFostoria City Hospital on above:Order Comment: Specimen Type: BLOOD SPECIMENOrdering Facility: [facility] Address:[address] [place], [place] [address]Performed By: #### 82262-2, 21129-5, 2776-04 ####[facility] LABCLIA [id number] [address] [place] AMERICAProtein [Mass/Vol]5.6 g/dLLow 6.3-8.0[facility] on above:Order Comment: Specimen Type: BLOOD SPECIMENOrdering Facility: [facility] Address:[address] [place], [place] [address]Performed By: #### 40603-6, 05983-9, 2776-04 ####[facility] LABCLIA [id number] V[place] [address] [place] AMERICASodium [Moles/Vol]135 mmol/LLow 136-144Martins Ferry Hospitalment on above:Order Comment: Specimen Type: BLOOD SPECIMENOrdering Facility: [facility] Address:[address] [place], [place] [address]Performed By: #### 88471-7, 75800-1, 2776-04 ####[facility] LABIA [id number] VILLE [address] [place] AMERICAUrea nitrogen [Mass/Vol]25 mg/dL High9-24[facility] on above:Order Comment: Specimen Type: BLOOD SPECIMENOrdering Facility: [facility] Address:[address] [place], [place] [address]Performed By: #### 16111-6, 28156-6, 2776-04 ####[facility] LABIA [id number] [address] [place] AMERICAMagnesium SerPl-mCncon 01-10-2025 Magnesium [Mass/Vol]1.7 mg/dLNormal1.7-2.3CFostoria City Hospital on above:Order Comment: Specimen Type: BLOOD SPECIMENOrdering Facility: [facility] Address:[address] [place], [place] [address]Kvjjkcdze By: #### 42002-4, 16770-4, 7-1 ####[facility] LABCLIA [id number] VILLE [address] [facility] NURSING PROGon 71-39-8850VRLWEKN PROGNormalOur Lady Of Mercy Hospital - AndersonPhosphate SerPl-ncon 93-68-5641Oonwczjuq [Mass/Vol]4.0 mg/dLNormal2.7-4.8CFostoria City Hospital on above:Order Comment: Specimen Type: BLOOD SPECIMENOrdering Facility: [facility] Address:[address] [place], [place] [address]Performed By: #### 71004-0, 34019-1, 27710-15 ####[facility] LABCLIA [id number] ME[address] STREETTHERAPY NTon 93-12-5630QYMUTBV NTNormalCWestern Reserve HospitalTHERAPY NTNormalCWestern Reserve HospitalTacrolimus Bld-ncon 42-21-9826Ooftwhehfl (Bld) [Mass/Vol]9.7 ng/mLNormal5.0-20.0[facility] on above:Order Comment: Specimen Type: BLOOD SPECIMENOrdering Facility: [facility] Address:[address] [place], [place] [address]Result Comment: Individualized target levels for a given [...] situation. Test performed by chemiluminescent immunoassay using [employer] i.Performed By: #### [id number] ####[facility] LABCLIA [id number] [place] [address] [place] AMERICAXR ABDOMEN 1V SUPINEon 01-10-2025 XR ABDOMEN 1V SUPINENormalCWestern Reserve HospitalXR ABDOMEN 1V SUPINENormal [facility] AndersonCASE MANAGEMon [id number] MANAGEMNormalWhite Hospital W Auto Differential panel (Bld)on [id number] Ql (Bld)PresentNormalCFostoria City Hospital on above:Order Comment: Specimen Type: BLOOD SPECIMENOrdering Facility: [facility] Address:[address] [place], [place] [address]Performed By: #### [id number] ####[facility] LABCLIA [id number] [place] [address] [place] OF AMERICABasophils (Bld) [#/Vol]0.20 10*3/uLHigh<0.11CFostoria City Hospital on above:Order Comment: Specimen Type: BLOOD SPECIMENOrdering Facility: [facility] Address:[address] [place], [place] [address]Performed By: #### [id number] ####[facility] LABCLIA [id number] [place] [address] [place] OF AMERICABasophils/100 WBC (Bld)2.0 % NormalTriHealth McCullough-[facility] on above:Order Comment: Specimen Type: BLOOD SPECIMENOrdering Facility: [facility] Address:[address] [place], [place] [address]Performed By: #### 94380-6 ####[facility] LABCLIA [id number] [place] [address] [place] OF AMERICADifferential cell count method Nom (Bld)ManualNoMartins Ferry Hospital on above:Order Comment: Specimen Type: BLOOD SPECIMENOrdering Facility: [facility] Address:[address] [place], [place] [address]Performed By: #### 14967-6 ####[facility] LABCLIA [id number] [place] [address] [place] AMERICAEosinophils (Bld) [#/Vol]0.00 10*3/uLNormal<0.46[facility] on above:Order Comment: Specimen Type: BLOOD SPECIMENOrdering Facility: [facility] Address:[address] [place], [place] [address]Performed By: #### 96796-9 ####[facility] LABIA [id number] [place] [address] [place] Eosinophils/100 WBC (Bld)0.0 %NormalTriHealth McCullough-Hy[facility] on above: Order Comment: Specimen Type: BLOOD SPECIMENOrdering Facility: [facility] Address:[address] [place], [place] [address]Performed By: #### 17383- 8 ####[facility] LABIA [id number] [address], [place] [address] [place] OF AMERICAErythrocyte distribution width (RBC) [Ratio]18.6 %High11.5-15.0[facility] on above:Order Comment: Specimen Type: BLOOD SPECIMENOrdering Facility: [facility] Address:[address] [place], [place] [address]Performed By: #### 29300- 8 ####[facility] LABIA [id number] [place] [address] [place] AMERICAHematocrit (Bld) [Volume fraction]26.6 %Low39.0-51.0[facility] on above:Order Comment: Specimen Type: BLOOD SPECIMENOrdering Facility: [facility] Address:[address] [place], [place] [address]Performed By: #### 43053- 8 ####[facility] LABIA [id number] [place] [address] [place] AMERICAHemoglobin (Bld) [Mass/Vol]8.1 g/dLLow13.0-17.0[facility] on above:Order Comment: Specimen Type: BLOOD SPECIMENOrdering Facility: [facility] Address:[address] [place], [place] [address]Performed By: #### 82887-0 ####[facility] LABIA [id number] [place] [address] [place] [facility]OR HOSPITALLymphocytes (Bld) [#/Vol]0.70 10*3/uLLow1.00-4.00[facility] on above:Order Comment: Specimen Type: BLOOD SPECIMENOrdering Facility: [facility] Address:[address] [place], [place] [address]Performed By: #### 23283-2 ####[facility] LABIA [id number] [place] [address] [place] AMERICALymphocytes/100 WBC (Bld)7.0 % NormalTriHealth McCullough-[facility] on above:Order Comment: Specimen Type: BLOOD SPECIMENOrdering Facility: [facility] Address:[address] [place], [place] [address]Performed By: #### 11953-3 ####[facility] LABIA [id number] [place] [address] [place] AMERICAMCH (RBC) [Entitic mass]30.1 qqPjxyij22.0-34.0[facility] on above:Order Comment: Specimen Type: BLOOD SPECIMENOrdering Facility: [facility] Address:[address] [place], [place] [address]Performed By: #### 99848-6 ####[facility] LABIA [id number] [place] [address] [place] MCHC (RBC) [Mass/Vol]30.5 g/vHHxdvrv79.5-36.0[facility] on above:Order Comment: Specimen Type: BLOOD SPECIMENOrdering Facility: [facility] Address:[address] [place] [address] Performed By: #### 34135-2 ####[facility] LABCLIA [id number] [address] [place] [address] [place] MCV (RBC) [Entitic vol]98.9 fYEulknb37.0-100.0[facility] on above:Order Comment: Specimen Type: BLOOD SPECIMENOrdering Facility: [facility] Address:[address] [place] [address] Performed By: #### 85980-4 ####[facility] LABCLIA [id number] [address] [place] [address] [place] Metamyelocytes/100 WBC (Bld)9.0 %NormalTriHealth McCull[facility] on above:Order Comment: Specimen Type: BLOOD SPECIMENOrdering Facility: [facility] Address:[address] [place], [place] [address]Performed By: #### 39613-9 ####[facility] LABIA [id number] [address], [place] [address] [place] AMERICAMonocytes (Bld) [#/Vol]1.11 10*3/uLHigh<0.87[facility] on above:Order Comment: Specimen Type: BLOOD SPECIMENOrdering Facility: [facility] Address:[address] [place], [place] [address]Performed By: #### 76496- 8 ####[facility] LABCLIA [id number] [address], [facility]95 [place] AMERICAMonocytes/100 WBC (Bld)11.0 % NormalTriHealth McCull[facility] on above:Order Comment: Specimen Type: BLOOD SPECIMENOrdering Facility: [facility] Address:[address] [place], [place] [address]Performed By: #### 50768-6 ####[facility] LABCLIA [id number] [address], [facility]95 [place] AMERICAMYELO%1.0 %NormalTriHealth McCull[facility] on above: Order Comment: Specimen Type: BLOOD SPECIMENOrdering Facility: [facility] Address:[address] [place], [place] [address]Performed By: #### 31691- 8 ####[facility] LABCLIA [id number] [address], [place] [address] [place] AMERICANeutrophils (Bld) [#/Vol]7.04 10*3/uLNormal1.45-7.50[facility] on above:Order Comment: Specimen Type: BLOOD SPECIMENOrdering Facility: [facility] Address:[address] [place], [place] [address]Performed By: #### 71304-2 ####[facility] LABIA [id number] [place] [address] [place] AMERICANeutrophils/100 WBC (Bld)70.0 % NormalOur Lady Of Mercy Hospital - AndersonComment on above:Order Comment: Specimen Type: BLOOD SPECIMENOrdering Facility: [facility] Address:[address] [place], [place] [address]Performed By: #### 78165-5 ####[facility] LABIA [id number] [address], [place] [address] [place] AMERICANucleated RBC (Bld) [#/Vol]10*3/uLNormal<0.01[facility] on above:Order Comment: Specimen Type: BLOOD SPECIMENOrdering Facility: [facility] Address:[address] [place], [place] [address]Performed By: #### 79410-3 ####[facility] LABCLIA [id number] [address], [facility]95 [place] Nucleated RBC/100 WBC (Bld) [Ratio]0.0 /100 WBCNormalCWestern Reserve Hospital Comment on above:Order Comment: Specimen Type: BLOOD SPECIMENOrdering Facility: [facility] Address:[address] [place] [address] Performed By: #### 94620-1 ####[facility] LABCLIA [id number] [place] [address] [place] Ovalocytes LM Ql (Bld)FewNormalCFostoria City Hospital on above:Order Comment: Specimen Type: BLOOD SPECIMENOrdering Facility: [facility] Address:[address] [place], [place] [address]Performed By: #### 42091- 8 ####[facility] LABCLIA [id number] [place] [address] [place] AMERICAPlatelet mean volume (Bld) [Entitic vol]10.5 fLNormal9.0-12.7CFostoria City Hospital on above: Order Comment: Specimen Type: BLOOD SPECIMENOrdering Facility: [facility] Address:[address] [place], [place] [address]Performed By: #### 90395- 8 ####[facility] LABCLIA [id number] [place] [address] [place] AMERICAPlatelets (Bld) [#/Vol]339 10*3/mYFhqqws662-130NwwlcxkisTriHealth [facility]ullough-[facility] on above:Order Comment: Specimen Type: BLOOD SPECIMENOrdering Facility: [facility] Address:[address] [place], [place] [address]Performed By: #### 18057-8 ####[facility] LABCLIA [id number] [place] [address] [place] AMERICAPlatelets Estimate (Bld) [#/Vol] AdequateNormalCFostoria City Hospital on above:Order Comment: Specimen Type: BLOOD SPECIMENOrdering Facility: [facility] Address:[address] [place], [place] [address]Performed By: #### 80582-9 ####[facility] LABCLIA [id number] [place] [address] [place] AMERICAPolychromasia LM Ql (Bld)SlightNormalCFostoria City Hospital on above:Order Comment: Specimen Type: BLOOD SPECIMENOrdering Facility: [facility] Address:[address] [place], [place] [address]Performed By: #### 48549-4 ####[facility] LABCLIA [id number] [address] [place] [address] [place] RBC (Bld) [#/Vol]2.69 10*6/uLLow4.20-6.00[facility] on above:Order Comment: Specimen Type: BLOOD SPECIMENOrdering Facility: [facility] Address:[address] [place], [place] [address]Performed By: #### 71427-9 ####[facility] LABCLIA [id number] [address], [address] OF AMERICARBC FRAGMENTSFew AbnormalNone SeenTriHealth McCullough-Hy[facility] Hospital on above:Order Comment: Specimen Type: BLOOD SPECIMENOrdering Facility: [facility] Address:[address] [place], [place] [address]Performed By: #### 37087-8 ####[facility] LABCLIA [id number] [address], [facility]95 [place] AMERICARED CELL MORPHReviewed: see results of individual morphologiesPomerene Hospital on above:Order Comment: Specimen Type: BLOOD SPECIMENOrdering Facility: [facility] Address:[address] [place], [place] [address]Performed By: #### 89630-5 ####[facility] LABCLIA [id number] [address] [place] [address] [place] [facility] HOSPITALTarcentral [facility] cells LM Ql (Bld)[facility] on above:Order Comment: Specimen Type: BLOOD SPECIMENOrdering Facility: [facility] Address:[address] [place], [place] [address]Performed By: #### 06772-3 ####[facility] LABCLIA [id number] [address] [place] [address] [place] AMERICAWBC (Bld) [#/Vol]10.06 10*3/uLNormal3.70-11.00[facility] on above:Order Comment: Specimen Type: BLOOD SPECIMENOrdering Facility: [facility] Address:[address] [place], [place] [address]Performed By: #### 85971-9 ####[facility] LABCLIA [id number] [place] [address] [place] AMERICAWBC Left Shift Ql (Bld)PresentNormalCFostoria City Hospital on above:Order Comment: Specimen Type: BLOOD SPECIMENOrdering Facility: [facility] Address:[address] [place], [place] [address]Performed By: #### 65202-0 ####[facility] LABCLIA [id number] [place] [address] [place] AMERICACCF BACTERIA UR CULTon 14-64-0703ZOW BACTERIA UR CULTORGANISM ID: 1AbnormalNOMS HealthcareCCF BACTERIA UR CULT10,000 -<50,000 CFU/ml Mixed microbiotaNOMS HealthcareCCF BACTERIA UR CULTNo further workupNOMS HealthcareInterpretation and review of laboratory resultsAbnormalCASTLEVIEW HOSPITAL HealthcareOriginal Ordering Provider: [facility] HealthcareComprehensive metabolic 2000 panelon 11-69-7895Ezylyin [Mass/Vol]2.1 g/dLLow3.9-4.9CFostoria City Hospital on above:Order Comment: Specimen Type: BLOOD SPECIMENOrdering Facility: [facility] Address:[address] [place], [place] [address]Performed By: #### 82804- 8, 53054-5, 2777-1 ####[facility] LABIA [id number] [address] [place] AMERICAALP [Catalytic activity/Vol]363 U/UAobv40-760LdjnkcwkwTriHealth McCullough-[facility] on above:Order Comment: Specimen Type: BLOOD SPECIMENOrdering Facility: [facility] Address:[address] [place], [place] [address]Performed By: #### 57452- 8, 01870-7, 2776- ####[facility] LABCLIA [id number] [address] [place] AMERICAALT [Catalytic activity/Vol]33 U/IVdoxbk01-63OyaulwureTriHealth McCullough-Hyde Memorial Hospital on above:Order Comment: Specimen Type: BLOOD SPECIMENOrdering Facility: [facility] Address:[address] [place], [place] [address]Performed By: #### 51191- 8, 92668-2, 2776-04 ####[facility] LABCLIA [id number] [address] [place] AMERICAAnion gap [Moles/Vol] 13 mmol/LNormal8-15[facility] on above:Order Comment: Specimen Type: BLOOD SPECIMENOrdering Facility: [facility] Address:[address] [place], [place] [address]Performed By: #### 70052-6, , 2776-04 ####[facility] LABCLIA [id number] [place] [address] [place] AMERICAAST [Catalytic activity/Vol]30 U/UHvxfbo80-51FaybopmotTriHealth McCullough-[facility] on above:Order Comment: Specimen Type: BLOOD SPECIMENOrdering Facility: [facility] Address:[address] [place], [place] [address]Performed By: #### 41488-4, , 2776-04 ####[facility] LABCLIA [id number] [address] [address] [place] AMERICABilirubin [Mass/Vol]0.3 mg/dL Normal0.2-1.3CFostoria City Hospital on above:Order Comment: Specimen Type: BLOOD SPECIMENOrdering Facility: [facility] Address:[address] [place], [place] [address]Performed By: #### 77507-9, 50472-4, 2776- ####[facility] LABCLIA [id number] [place] [address] [place] AMERICACalcium [Mass/Vol]8.2 mg/dLLow 8.5-10.2CFostoria City Hospital on above:Order Comment: Specimen Type: BLOOD SPECIMENOrdering Facility: [facility] Address:[address] [place], [place] [address]Performed By: #### 10246-9, 61030-7, 2776-04 ####[facility] LABCLIA [id number] [place] [address] [place] AMERICAChloride [Moles/Vol]103 mmol/L Fcqkiw20-344MtjppjuhhTriHealth McCullough-[facility] on above:Order Comment: Specimen Type: BLOOD SPECIMENOrdering Facility: [facility] Address:[address] [place], [place] [address]Performed By: #### 66594-0, 74272-1, 2776-04 ####[facility] LABIA [id number] VILLE [address] [place] AMERICACO2 [Moles/Vol]21 mmol/QPsb43-61 [facility] on above:Order Comment: Specimen Type: BLOOD SPECIMENOrdering Facility: [facility] Address:[address] [place], [place] [address]Performed By: #### 76622-9, 26653-3, 2776-04 ####[facility] LABIA [id number] VILLE [address] [place] AMERICACreatinine [Mass/Vol]0.60 mg/dLLow0.73-1.22 [facility] on above:Order Comment: Specimen Type: BLOOD SPECIMENOrdering Facility: [facility] Address:[address] [place], [place] [address]Performed By: #### 22009-0, 79009-6, 2776- ####[facility] LABCLIA [id number] VILLE [address] [place] AMERICAeGFRcr SerPlBld CKD-EPI 2743332 mL/min/1.73m??? Normal>=60[facility] on above:Order Comment: Specimen Type: BLOOD SPECIMENOrdering Facility: [facility] Address:[address] [place], [place] [address]Result Comment: Estimated Glomerular Filtration Rate (eGFR) is calculated using the 2020 CKD-EPI creatinine equation. This equation utilizes serum creatinine, sex, and age as parameters. The creatinine assay has traceable calibration to isotope dilution-mass spectrometry. Refer to KDIGO guidelines for clinical interpretation. In patients with unstable renal function, e.g. those with acute kidney injury, the eGFR may not accurately reflect actual GFR.Performed By: #### 08677-6, 11689-0, 2776- ####[facility] LABCLIA [id number] [address] [place] AMERICAGlucose [Mass/Vol]123 mg/zDIruk77-01YodynroqxTriHealth McCullough-[facility] on above:Order Comment: Specimen Type: BLOOD SPECIMENOrdering Facility: [facility] Address:[address] [place], [place] [address]Result Comment: The [place] Diabetes [employer] (ADA) provides guidance for cutoff [...] unequivocal hyperglycemia, results should be confirmed by repeattesting. In a patient with classic symptoms of hyperglycemia or hyperglycemic crisis, random plasmaglucose results greater than or equal to 200 mg/dL meet the criteria for diagnosis of diabetes.Reference: Standards of Medical Care in Diabetes 2016, [employer] [place] [employer]. Diabetes Care. 2016.39(Suppl 1).Performed By: #### 90481- 8, 90751-4, 2776- ####[facility] LABIA [id number] [address] [place] AMERICAPotassium [Moles/Vol] 4.3 mmol/LNormal3.7-5.1CFostoria City Hospital on above:Order Comment: Specimen Type: BLOOD SPECIMENOrdering Facility: [facility] Address:[address] [place], [place] [address]Performed By: #### 14169-1, 55506-2, 2776-04 ####[facility] LABCLIA [id number] [address] [place] AMERICAProtein [Mass/Vol]5.1 g/dLLow 6.3-8.0[facility] on above:Order Comment: Specimen Type: BLOOD SPECIMENOrdering Facility: [facility] Address:[address] [place], [place] [address]Performed By: #### 31772-9, , 2776-04 ####[facility] LABCLIA [id number], [place] [address] [place] AMERICASodium [Moles/Vol]137 mmol/L Mfwjsn358-153ZhhxetscsTriHealth McCullough-[facility] on above:Order Comment: Specimen Type: BLOOD SPECIMENOrdering Facility: [facility] Address:[address] [place], [place] [address]Performed By: #### 59744-8, , 2776-04 ####[facility] LABCLIA [id number] [place] [address] [place] AMERICAUrea nitrogen [Mass/Vol]25 mg/dL High9-24[facility] on above:Order Comment: Specimen Type: BLOOD SPECIMENOrdering Facility: [facility] Address:[address] [place], [place] [address]Performed By: #### 29377-7, , 2776-04 ####[facility] LABCLIA [id number] [place] [address] [place] AMERICAMagnesium SerPl-mCncon 01-09-2025 Magnesium [Mass/Vol]1.9 mg/dLNormal1.7-2.3[facility] ClevelandComment on above:Order Comment: Specimen Type: BLOOD SPECIMENOrdering Facility: [facility] Address:[address] [place], [place] [address]Performed By: #### 08494-9, 39119-9, 2777-1 ####[facility] LABCLIA [id number] [place] [id number] [place] Phosphate SerPl-mCncon 68-08-0731Ujracekgu [Mass/Vol]4.4 mg/dLNormal2.7-4.8 [facility] on above:Order Comment: Specimen Type: BLOOD SPECIMENOrdering Facility: [facility] Address:[address] [place], [place] [address]Performed By: #### 55135-8, 08948-4, 2777- ####[facility] LABCLIA [id number], [place] [address] [place] AMERICATHERAPY NTon 79-99-5615ZFBKZKM NTNormalCleveland Formerly [facility]idant Medical CenterTHERAPY NTNormalCdetwiler memorial hospitaland [facility]idant Medical CenterTHERAPY NTNormal [facility] - AndersonTYPE + SCREENon 22-38-0906AUGRJjomiqNsohvdphbFostoria City Hospital on above:Order Comment: Specimen Type: BLOOD SPECIMENOrdering Facility: [facility] Address:[address] [place], [place] [address]Performed By: #### TSCR ####CC MAIN BLOOD BANKCLIA [id number] [place] [address] [place] AMERICARh Nom (Bld)Positive NormalTriHealth McCullough-Hyde Memorial Hospital on above:Order Comment: Specimen Type: BLOOD SPECIMENOrdering Facility: [facility] Address:[address] [place], [place] [address]Performed By: #### TSCR ####CC MAIN BLOOD BANKCLIA [id number] [place] [address] [place] AMERICATYPE AND SCREEN BSRBMIAPGF10/28/2025 23:59NormalCFostoria City Hospital on above:Order Comment: Specimen Type: BLOOD SPECIMENOrdering Facility: [facility] Address:[address] [place], [place] [address]Performed By: #### TSCR ####[facility] BLOOD BANKCLIA [id number] [place] [address] [place] [facility] MENTOR HOSPITALTacrolimus Bld-mCncon 33-60-8093Yshpzolacj (Bld) [Mass/Vol]10.2 ng/mLNormal5.0-20.0[facility] on above:Order Comment: Specimen Type: BLOOD SPECIMENOrdering Facility: [facility] Address:[address] [place], [place] [address]Result Comment: Individualized target levels for a given [...] situation. Test performed by chemiluminescent immunoassay using [employer] i.Performed By: #### 28877-0 ####[facility] LABCLIA [id number] [place] [address] [place] AMERICABacteria Ur Culton 01-08-2025 Bacteria identified Cx Nom (U)ORGANISM ID: 1 10,000 -<50,000 CFU/ml Mixed microbiota No further workupNormalCFostoria City Hospital on above:Performed By: #### 630-4 ####[facility] LABCLIA [id number] [place] [address] [place] AMERICACBC W Auto Differential panel (Bld)on 66-88-4224Tmuyyslnlsrq Ql (Bld)PresentNormFort Hamilton Hospital on above:Order Comment: Specimen Type: BLOOD SPECIMENOrdering Facility: [facility] Address:[address] [place], [place] [address]Performed By: #### 47899-2 ####[facility] LABCLIA [id number] [place] [address] [place] AMERICABasophils (Bld) [#/Vol]0.09 10*3/uLNormal<0.11CWestern Reserve Hospital Comment on above:Order Comment: Specimen Type: BLOOD SPECIMENOrdering Facility: [facility] Address:[address] [place] [address] Performed By: #### 91531-9 ####[facility] LABCLIA [id number] [place] [address] [place] Basophils/100 WBC (Bld)0.9 %NormalTriHealth [facility]ull[facility] on above: Order Comment: Specimen Type: BLOOD SPECIMENOrdering Facility: [facility] Address:[address] [place], [place] [address]Performed By: #### [id number]- [id number] ####[facility] LABCLIA [id number] [place] [address] [place] AMERICADifferential cell count method Nom (Bld)ManualNormalCFostoria City Hospital on above:Order Comment: Specimen Type: BLOOD SPECIMENOrdering Facility: [facility] Address:[address] [place], [place] [address]Performed By: #### [id number] ####[facility] LABCLIA [id number] [place] [address] [place] AMERICAEosinophils (Bld) [#/Vol]0.00 10*3/uLNormal<0.46[facility] on above:Order Comment: Specimen Type: BLOOD SPECIMENOrdering Facility: [facility] Address:[address] [place], [place] [address]Performed By: #### [id number] ####[facility] LABCLIA [id number] [place] [address] [place] AMERICAEosinophils/100 WBC (Bld)0.0 % NormalTriHealth [facility]ull[facility] on above:Order Comment: Specimen Type: BLOOD SPECIMENOrdering Facility: [facility] Address:[address] [place], [place] [address]Performed By: #### 83527-9 ####[facility] LABIA [id number] [place] [address] [place] AMERICAErythrocyte distribution width (RBC) [Ratio]18.4 %High11.5-15.0 [facility] on above:Order Comment: Specimen Type: BLOOD SPECIMENOrdering Facility: [facility] Address:[address] [place], [place] [address]Performed By: #### 79407-1 ####[facility] [id number] [place] [address] [place] AMERICAHematocrit (Bld) [Volume fraction]23.9 %Low39.0-51.0[facility] Hospitalment on above:Order Comment: Specimen Type: BLOOD SPECIMENOrdering Facility: [facility] Address:[address] [place], [place] [address]Performed By: #### 06003-3 ####[facility] [id number] [place] [address] [place] Hemoglobin (Bld) [Mass/Vol]7.5 g/dLLow13.0-17.0[facility] on above:Order Comment: Specimen Type: BLOOD SPECIMENOrdering Facility: [facility] Address:[address] [place] [address] Performed By: #### 39700-4 ####[facility] LABIA [id number] [place] [address] [place] Lymphocytes (Bld) [#/Vol]0.44 10*3/uLLow1.00-4.00[facility] Comment on above:Order Comment: Specimen Type: BLOOD SPECIMENOrdering Facility: [facility] Address:[address] [place] [address] Performed By: #### 58587-9 ####[facility] LABIA [id number] [address], [address] [facility] Lymphocytes/100 WBC (Bld)4.5 %NormalTriHealth McCullough-[facility] on above: Order Comment: Specimen Type: BLOOD SPECIMENOrdering Facility: [facility] Address:[address] [place], [place] [address]Performed By: #### 46536- 8 ####[facility] LABIA [id number] [address], [address] (RBC) [Entitic mass]30.5 pg Kkgpjv13.0-34.0[facility] on above:Order Comment: Specimen Type: BLOOD SPECIMENOrdering Facility: [facility] Address:[address] [place], [place] [address]Performed By: #### 50315-9 ####[facility] LABIA [id number] [address] (RBC) [Mass/Vol]31.4 g/dL Srrtps94.5-36.0[facility] on above:Order Comment: Specimen Type: BLOOD SPECIMENOrdering Facility: [facility] Address:[address] [place], [place] [address]Performed By: #### 94503-1 ####[facility] LABIA [id number] [address] (RBC) [Entitic vol]97.2 fL Fqsymb80.0-100.0[facility] on above:Order Comment: Specimen Type: BLOOD SPECIMENOrdering Facility: [facility] Address:[address] [place], [place] [address]Performed By: #### 31822-9 ####[facility] LABIA [id number] [address]Metamyelocytes/100 WBC (Bld)1.8 % NormalCleveland Clinic ClevelandComment on above:Order Comment: Specimen Type: BLOOD SPECIMENOrdering Facility: [facility] Address:[address] [place], [place] [address]Performed By: #### 07740-2 ####[facility] LABCLIA [id number] [address] [place] [address] [place] AMERICAMonocytes (Bld) [#/Vol]0.79 10*3/uLNormal<0.87[facility] on above:Order Comment: Specimen Type: BLOOD SPECIMENOrdering Facility: [facility] Address:[address] [place], [place] [address]Performed By: #### 49072-5 ####[facility] LABCLIA [id number] [place] [address] [place] Monocytes/100 WBC (Bld)8.1 %[facility] on above: Order Comment: Specimen Type: BLOOD SPECIMENOrdering Facility: [facility] Address:[address] [place], [place] [address]Performed By: #### 30812- 8 ####[facility] LABCLIA [id number] [place] [address] [place] AMERICAMYELO%4.5 %[facility] on above:Order Comment: Specimen Type: BLOOD SPECIMENOrdering Facility: [facility] Address:[address] [place], [place] [address]Performed By: #### 32592-8 ####[facility] LABCLIA [id number] [place] [address] [place] Neutrophils (Bld) [#/Vol]7.83 10*3/uLHigh1.45-7.50[facility] Comment on above:Order Comment: Specimen Type: BLOOD SPECIMENOrdering Facility: [facility] Address:[address] [place] [address] Performed By: #### 62434-5 ####[facility] LABCLIA [id number] [address], [place] [address] [place] Neutrophils/100 WBC (Bld)80.2 %NormalTriHealth [facility]ull[facility] on above: Order Comment: Specimen Type: BLOOD SPECIMENOrdering Facility: [facility] Address:[address] [place], [place] [address]Performed By: #### 15780- 8 ####[facility] LABCLIA [id number] [address], [place] [address] [place] AMERICANucleated RBC (Bld) [#/Vol] 10*3/uLNormal<0.01[facility] on above:Order Comment: Specimen Type: BLOOD SPECIMENOrdering Facility: [facility] Address:[address] [place], [place] [address]Performed By: #### 40005-9 ####[facility] LABIA [id number] [place] [address] [place] AMERICANucleated RBC/100 WBC (Bld) [Ratio]0.0 /100 WBCNormalCFostoria City Hospital on above:Order Comment: Specimen Type: BLOOD SPECIMENOrdering Facility: [facility] Address:[address] [place], [place] [address]Performed By: #### 49104- 8 ####[facility] LABCLIA [id number] [place] [address] [place] AMERICAOvalocytes LM Ql (Bld)FewNormal [facility] on above:Order Comment: Specimen Type: BLOOD SPECIMENOrdering Facility: [facility] Address:[address] [place], [place] [address]Performed By: #### 04315-1 ####[facility] LABCLIA [id number] [place] [address] [place] AMERICAPlatelet mean volume (Bld) [Entitic vol]10.5 fLNormal9.0-12.7CFostoria City Hospital on above:Order Comment: Specimen Type: BLOOD SPECIMENOrdering Facility: [facility] Address:[address] [place], [place] [address]Performed By: #### 88702-3 ####[facility] LABCLIA [id number] [address] [place] [address] [place] AMERICAPlatelets (Bld) [#/Vol]297 10*3/tYMmvcyc934-870RzzvwycohOur [facility] Comment on above:Order Comment: Specimen Type: BLOOD SPECIMENOrdering Facility: [facility] Address:[address] [place] [address] Performed By: #### 97051-7 ####[facility] LABCLIA [id number] [address] [place] [address] [place] Platelets Estimate (Bld) [#/Vol]AdequateNormalCFostoria City Hospital on above:Order Comment: Specimen Type: BLOOD SPECIMENOrdering Facility: [facility] Address:[address] [place] [address] Performed By: #### 62685-1 ####[facility] LABCLIA [id number] [address] [place] [address] [place] Polychromasia LM Ql (Bld)SlightNormalCWestern Reserve HospitalComment on above: Order Comment: Specimen Type: BLOOD SPECIMENOrdering Facility: [facility] Address:[address] [place], [place] [address]Performed By: #### 83585- 8 ####[facility] LABCLIA [id number] [address] [place] [address] [place] AMERICARBC (Bld) [#/Vol]2.46 10*6/uLLow 4.20-6.00[facility] AndersonComeaton [facility] on above:Order Comment: Specimen Type: BLOOD SPECIMENOrdering Facility: [facility] Address:[address] [place], [place] [address]Performed By: #### 33745-9 ####[facility] LABCLIA [id number] [address] [place] [address] [place] AMERICARED CELL MORPHReviewed: see results of individual morphologiesNoMartins Ferry Hospital on above:Order Comment: Specimen Type: BLOOD SPECIMENOrdering Facility: [facility] Address:[address] [place], [place] [address]Performed By: #### 86427-1 ####[facility] LABCLIA [id number] [address] [place] [address] [place] AMERICATarget cells LM Ql (Bld)FewNormal [facility] on above:Order Comment: Specimen Type: BLOOD SPECIMENOrdering Facility: [facility] Address:[address] [place], [place] [address]Performed By: #### 98029-5 ####[facility] LABIA [id number] [address], [place] [address] [place] OF AMERICAWBC (Bld) [#/Vol]9.76 10*3/uLNormal3.70-11.00[facility] Comment on above:Order Comment: Specimen Type: BLOOD SPECIMENOrdering Facility: [facility] Address:[address] [place] [address] Performed By: #### 67227-4 ####[facility] LABCLIA [id number] [address], [facility]95 [place] WBC Left Shift Ql (Bld)PresentNoMartins Ferry Hospital on above: Order Comment: Specimen Type: BLOOD SPECIMENOrdering Facility: [facility] Address:[address] [place], [place] [address]Performed By: #### 12405- 8 ####[facility] LABCLIA [id number] [address], [facility]95 [place] AMERICACONSULT PROGon 53-71-5169YUHNHEE PROGNormalOur [facility] Of [facility] Hospital - AndersonCRP SerPl-mCncon 46-14-8683PKW [Mass/Vol] 23.9 mg/dLHigh<0.9CFostoria City Hospital on above:Order Comment: Specimen Type: BLOOD SPECIMENOrdering Facility: [facility] Address:[address] [place], [place] [address]Performed By: #### 37954-8, 1987-08, , 2776-04 ####[facility] LABCLIA [id number] [place] [address] [place] AMERICAComprehensive metabolic 2000 panelon 77-75-7113Nvknttf [Mass/Vol]2.1 g/dLLow3.9-4.9ClevelPremier Health Miami [facility] on above:Order Comment: Specimen Type: BLOOD SPECIMENOrdering Facility: [facility] Address:[address] [place], [place] [address]Performed By: #### 26484-6, 1987-08, , 2776-04 ####[facility] LABCLIA [id number] [place] [address] [place] AMERICAALP [Catalytic activity/Vol]409 U/NSlmh48-948ImjkeielxTriHealth [facility]ull[facility] on above:Order Comment: Specimen Type: BLOOD SPECIMENOrdering Facility: [facility] Address:[address] [place], [place] [address]Performed By: #### 29181-0, 1987-08, , 2776-04 ####[facility] LABCLIA [id number] [place] [address] [place] AMERICAALT [Catalytic activity/Vol]37 U/IPlzucd33-49ZcqvuvmdcTriHealth [facility]ullough-[facility] on above:Order Comment: Specimen Type: BLOOD SPECIMENOrdering Facility: [facility] Address:[address] [place], [place] [address]Performed By: #### 14054-6, 1987-08, , 2776-04 ####[facility] LABCLIA [id number] [place] [address] [place] AMERICAAnion gap [Moles/Vol]11 mmol/L Normal8-15[facility] on above:Order Comment: Specimen Type: BLOOD SPECIMENOrdering Facility: [facility] Address:[address] [place], [place] [address]Performed By: #### 84230-4, 1987-08, , 2776-04 ####[facility] LABCLIA [id number] [place] [address] [place] AMERICAAST [Catalytic activity/Vol]28 U/KOooqxd11-96NubgqvddxTriHealth [facility] on above:Order Comment: Specimen Type: BLOOD SPECIMENOrdering Facility: [facility] Address:[address] [place], [place] [address]Performed By: #### 31526-8, 1987-08, , 2776-04 ####[facility] LABCLIA [id number] [place] [address] [place] AMERICABilirubin [Mass/Vol]0.3 mg/dL Normal0.2-1.3CFostoria City Hospital on above:Order Comment: Specimen Type: BLOOD SPECIMENOrdering Facility: [facility] Address:[address] [place], [place] [address]Performed By: #### 68949-0, 1987-08, , 2776-04 ####[facility] LABCLIA [id number] [address] [address] [place] AMERICACalcium [Mass/Vol]8.1 mg/dLLow 8.5-10.2CFostoria City Hospital on above:Order Comment: Specimen Type: BLOOD SPECIMENOrdering Facility: [facility] Address:[address] [place], [place] [address]Performed By: #### 31009-6, 1987-08, , 2776-04 ####[facility] LABCLIA [id number] [address] [address] [place] AMERICAChloride [Moles/Vol]102 mmol/L Nptubq31-525XiyswcmraTriHealth McCullough-Hyde Memorial Hospital on above:Order Comment: Specimen Type: BLOOD SPECIMENOrdering Facility: [facility] Address:[address] [place] [address]Pccomsbfy By: #### 98373-7, 1987-08, , 2776-04 ####[facility] LABIA [id number] [place] [address] [place] AMERICACO2 [Moles/Vol]21 mmol/EVeo68-35 [facility] on above:Order Comment: Specimen Type: BLOOD SPECIMENOrdering Facility: [facility] Address:[address] [place] [address]Xspmmaefm By: #### 18693-5, 1987-08, , 2776-04 ####[facility] LABIA [id number] [place] [address] [place] AMERICACreatinine [Mass/Vol]0.59 mg/dL Low0.73-1.22[facility] on above:Order Comment: Specimen Type: BLOOD SPECIMENOrdering Facility: [facility] Address:[address] [place], [place] [address]Performed By: #### 51626-1, 1987-08, , 2776-04 ####[facility] LABIA [id number] [place] [address] [place] OF AMERICAeGFRcr SerPlBld CKD-EPI 8320439 mL/min/1.73m???Normal>=60[facility] on above:Order Comment: Specimen Type: BLOOD SPECIMENOrdering Facility: [facility] Address:[address] [place] [address]Xzqqao Comment: Estimated Glomerular Filtration Rate (eGFR) is calculated using the 2020 CKD-EPI cre atinine equation. This equation utilizes serum creatinine, sex, and age as parameters. The creatinine assay has traceable calibration to isotope dilution- mass spectrometry. Refer to KDIGO guidelines for clinical interpretation. In patients with unstable renal function, e.g. those with acute kidney injury, the eGFR may not accurately reflect actual GFR.Performed By: #### 04395-2, 1987-08, , 2776-04 ####[facility] LABCLIA [id number] [address] [address] [place] AMERICAGlucose [Mass/Vol]127 mg/mJBgfh92-28NnbjudqybTriHealth McCullough-Hy[facility] on above:Order Comment: Specimen Type: BLOOD SPECIMENOrdering Facility: [facility] Address:[address] [place] [id number] Comment: The [place] [employer] (ADA) provides guidance for cutoff [...] symptoms of hyperglycemia or hyperglycemic crisis, random plasmaglucose results greater than or equal to 200 mg/dL meet the criteria for diagnosis of diabetes.Reference: Standards of Medical Care in Diabetes 2016, [employer] [place] [employer]. Diabetes Care. 2016.39(Suppl 1). Performed By: #### 61014-7, 1987-08, , 2776-04 ####[facility] LABCLIA [id number] [address] [address] [place] AMERICAPotassium [Moles/Vol]3.9 mmol/LNormal3.7-5.1CFostoria City Hospital on above:Order Comment: Specimen Type: BLOOD SPECIMENOrdering Facility: [facility] Address:[address] [place], [place] [address]Xiqscpiyo By: #### 14648-8, 1987-08, , 2776-04 ####[facility] LABCLIA [id number] [address] [address] [place] AMERICAProtein [Mass/Vol]5.0 g/dLLow6.3-8.0[facility] on above:Order Comment: Specimen Type: BLOOD SPECIMENOrdering Facility: [facility] Address:[address] [place] [address]Ktveqzdis By: #### 11277-5, 1987-08, , 2776-04 ####[facility] LABCLIA [id number] [address] [place] [address] [place] AMERICASodium [Moles/Vol]134 mmol/HCgx642-643JfqhaioliTriHealth McCullough-Hy[facility] on above:Order Comment: Specimen Type: BLOOD SPECIMENOrdering Facility: [facility] Address:[address] [place], [place] [address]Performed By: #### 31412-6, 1987-08, , 2776-04 ####[facility] LABCLIA [id number] [place] [address] [place] AMERICAUrea nitrogen [Mass/Vol]25 mg/dLHigh-[facility] on above:Order Comment: Specimen Type: BLOOD SPECIMENOrdering Facility: [facility] Address:[address] [place], [place] [address]Performed By: #### 25057-0, 1987-08, , 2776-04 ####[facility] LABCLIA [id number] [address] [address] [place] AMERICAECG COMPLETEon 12-17-9354VZZ COMPLETENormalCWestern Reserve HospitalMagnesium SerPl-mCncon 43-94-2316Yokforxtj [Mass/Vol]1.6 mg/dL Low1.7-2.3CFostoria City Hospital on above:Order Comment: Specimen Type: BLOOD SPECIMENOrdering Facility: [facility] Address:[address] [place] [address]Dpidzypnh By: #### 61301-6, 1987-08, , 2776-04 ####[facility] LABCLIA [id number] [address] [address] [place] OF S[facility] REGIONAL REHABILITATION CENTERUTRITIONon 74-55-6007TGVCXQIAI NormalOur Lady Of Mercy Hospital - AndersonPhosphate SerPl-[facility] 80-21-6520Vcovoskof [Mass/Vol]4.0 mg/dLNormal2.7-4.8CFostoria City Hospital on above:Order Comment: Specimen Type: BLOOD SPECIMENOrdering Facility: [facility] Address:[address] [place], [place] [address]Performed By: #### 18118- 8, 1987-, 09256-3, 277-1 ####[facility] LABCLIA [id number] [place] [address] [place] OF AMERICATHERAPY NTon 17-01-2766CLTSGLK NTNormalCWestern Reserve HospitalTacrolimus Bld-ncon 21-55-9119Vcqjznhnub (Bld) [Mass/Vol]7.0 ng/mLNormal5.0-20.0[facility] on above:Order Comment: Specimen Type: BLOOD SPECIMENOrdering Facility: [facility] Address:[address] [place], [place] [address]Result Comment: Individualized target levels for a given [...] performed by chemiluminescent immunoassay using [employer] Al[employer] i.Performed By: #### 75678-7 ####[facility] LABCLIA [id number] [place] [address] [place] AMERICACASE MANAGEMon 93-12-1891UCQA MANAGEMNormalOur Lady Of Mercy Hospital - AndersonCB W Auto Differential panel (Bld)on 57-39-6357Anvtueojqphj Ql (Bld)PresentNormalCFostoria City Hospital on above:Order Comment: Specimen Type: BLOOD SPECIMENOrdering Facility: [facility] Address:[address] [place], [place] [address]Performed By: #### 24070-1 ####[facility] LABCLIA [id number] [place] [address] [place] AMERICABasophils (Bld) [#/Vol]0.00 10*3/uLNormal<0.11CFostoria City Hospital on above:Order Comment: Specimen Type: BLOOD SPECIMENOrdering Facility: [facility] Address:[address] [place], [place] [address]Performed By: #### 12035- 8 ####[facility] LABCLIA [id number] [place] [address] [place] AMERICABasophils/100 WBC (Bld)0.0 % NormalTriHealth McCullough-Hyde Memorial Hospital on above:Order Comment: Specimen Type: BLOOD SPECIMENOrdering Facility: [facility] Address:[address] [place], [place] [address]Performed By: #### 92804-0 ####[facility] LABCLIA [id number] [place] [address] [place] AMERICADifferential cell count method Nom (Bld)ManualNormalCFostoria City Hospital on above:Order Comment: Specimen Type: BLOOD SPECIMENOrdering Facility: [facility] Address:[address] [place], [place] [address]Performed By: #### 18989-1 ####[facility] LABCLIA [id number] [place] [address] [place] AMERICAEosinophils (Bld) [#/Vol]0.00 10*3/uLNormal<0.46[facility] on above:Order Comment: Specimen Type: BLOOD SPECIMENOrdering Facility: [facility] Address:[address] [place], [place] [address]Performed By: #### 45590-7 ####[facility] LABCLIA [id number] [place] [address] [place] Eosinophils/100 WBC (Bld)0.0 %NormalTriHealth McCullough-Hyde Memorial Hospital on above: Order Comment: Specimen Type: BLOOD SPECIMENOrdering Facility: [facility] Address:[address] [place], [place] [address]Performed By: #### 69747- 8 ####[facility] LABIA [id number] [place] [address] [place] AMERICAErythrocyte distribution width (RBC) [Ratio]18.1 %High11.5-15.0[facility] on above:Order Comment: Specimen Type: BLOOD SPECIMENOrdering Facility: [facility] Address:[address] [place], [place] [address]Performed By: #### 42522- 8 ####[facility] LABIA [id number] [address], [place] [address] [place] AMERICAHematocrit (Bld) [Volume fraction]24.8 %Low39.0-51.0[facility] on above:Order Comment: Specimen Type: BLOOD SPECIMENOrdering Facility: [facility] Address:[address] [place], [place] [address]Performed By: #### 18656- 8 ####[facility] LABIA [id number] [place] [address] [place] AMERICAHemoglobin (Bld) [Mass/Vol]8.0 g/dLLow13.0-17.0[facility] on above:Order Comment: Specimen Type: BLOOD SPECIMENOrdering Facility: [facility] Address:[address] [place], [place] [address]Performed By: #### 34158-8 ####[facility] LABIA [id number] [place] [address] [place] AMERICALymphocytes (Bld) [#/Vol]0.73 10*3/uLLow1.00-4.00[facility] on above:Order Comment: Specimen Type: BLOOD SPECIMENOrdering Facility: [facility] Address:[address] [place], [place] [address]Performed By: #### [id number] ####[facility] LABIA [id number] [place] [address] [place] AMERICALymphocytes/100 WBC (Bld)7.1 % NormalTri[facility] on above:Order Comment: Specimen Type: BLOOD SPECIMENOrdering Facility: [facility] Address:[address] [place], [place] [address]Performed By: #### [id number] ####[facility] LABIA [id number] [place] [address] [place] AMERICAMCH (RBC) [Entitic mass]31.0 xfUmqrbu81.0-34.0[facility] on above:Order Comment: Specimen Type: BLOOD SPECIMENOrdering Facility: [facility] Address:[address] [place], [place] [address]Performed By: #### [id number] ####[facility] [id number] [place] [address] [place] MCHC (RBC) [Mass/Vol]32.3 g/rJIiqemj65.5-36.0[facility] on above:Order Comment: Specimen Type: BLOOD SPECIMENOrdering Facility: [facility] Address:[address] [place] [address] Performed By: #### [id number] ####[facility] LABIA [id number] [place] [address] [place] MCV (RBC) [Entitic vol]96.1 wKIpgmmp20.0-100.0[facility] on above:Order Comment: Specimen Type: BLOOD SPECIMENOrdering Facility: [facility] Address:[address] [place] [address] Performed By: #### 25553-5 ####[facility] LABIA [id number] [address] [place] [address] [place] Metamyelocytes/100 WBC (Bld)0.9 %NormalTriHealth McCullough-[facility] on above:Order Comment: Specimen Type: BLOOD SPECIMENOrdering Facility: [facility] Address:[address] [place], [place] [address]Performed By: #### 39209-8 ####[facility] LABCLIA [id number] [address], [place] [address] [place] AMERICAMonocytes (Bld) [#/Vol]0.99 10*3/uLHigh<0.87[facility] on above:Order Comment: Specimen Type: BLOOD SPECIMENOrdering Facility: [facility] Address:[address] [place], [place] [address]Performed By: #### 47938- 8 ####[facility] LABCLIA [id number] [address], [place] [address] [place] AMERICAMonocytes/100 WBC (Bld)9.7 % NormalTriHealth McCull[facility] on above:Order Comment: Specimen Type: BLOOD SPECIMENOrdering Facility: [facility] Address:[address] [place], [place] [address]Performed By: #### 66567-2 ####[facility] LABCLIA [id number] [address], [facility]95 [place] AMERICAMYELO%0.9 %NormalTriHealth [facility]ull[facility] on above: Order Comment: Specimen Type: BLOOD SPECIMENOrdering Facility: [facility] Address:[address] [place], [place] [address]Performed By: #### 92120- 8 ####[facility] LABCLIA [id number] [address], [facility]95 [place] AMERICANeutrophils (Bld) [#/Vol]8.32 10*3/uLHigh1.45-7.50[facility] on above:Order Comment: Specimen Type: BLOOD SPECIMENOrdering Facility: [facility] Address:[address] [place], [place] [address]Performed By: #### 31817-0 ####[facility] LABCLIA [id number] [place] [address] [place] AMERICANeutrophils/100 WBC (Bld)81.4 % NormalOur Lady Of Mercy Hospital - AndersonComment on above:Order Comment: Specimen Type: BLOOD SPECIMENOrdering Facility: [facility] Address:[address] [place], [place] [address]Performed By: #### 99931-0 ####[facility] LABCLIA [id number] [address], [place] [address] [place] AMERICANucleated RBC (Bld) [#/Vol]10*3/uLNormal<0.01[facility] on above:Order Comment: Specimen Type: BLOOD SPECIMENOrdering Facility: [facility] Address:[address] [place], [place] [address]Performed By: #### 13798-3 ####[facility] LABIA [id number] [place] [address] [place] Nucleated RBC/100 WBC (Bld) [Ratio]0.0 /100 WBCNormalCWestern Reserve Hospital Comment on above:Order Comment: Specimen Type: BLOOD SPECIMENOrdering Facility: [facility] Address:[address] [place] [address] Performed By: #### 18480-8 ####[facility] LABCLIA [id number] [address] [place] [address] [place] Ovalocytes LM Ql (Bld)FewNormalCWestern Reserve HospitalComeaton rapids medical center on above:Order Comment: Specimen Type: BLOOD SPECIMENOrdering Facility: [facility] Address:[address] [place], [place] [address]Performed By: #### 80342- 8 ####[facility] LABCLIA [id number] [place] [address] [place] AMERICAPlatelet mean volume (Bld) [Entitic vol]10.6 fLNormal9.0-12.7CFostoria City Hospital on above: Order Comment: Specimen Type: BLOOD SPECIMENOrdering Facility: [facility] Address:[address] [place], [place] [address]Performed By: #### 32861- 8 ####[facility] LABCLIA [id number] [address], [place] [address] [place] AMERICAPlatelets (Bld) [#/Vol]307 10*3/vILujelw179-797FwsopzozpTriHealth [facility] on above:Order Comment: Specimen Type: BLOOD SPECIMENOrdering Facility: [facility] Address:[address] [place], [place] [address]Performed By: #### 09532-1 ####[facility] LABCLIA [id number] [place] [address] [place] AMERICAPlatelets Estimate (Bld) [#/Vol] AdequateNormalCFostoria City Hospital on above:Order Comment: Specimen Type: BLOOD SPECIMENOrdering Facility: [facility] Address:[address] [place], [place] [address]Performed By: #### 33192-7 ####[facility] LABCLIA [id number] [place] [address] [place] AMERICAPolychromasia LM Ql (Bld)SlightNormalCFostoria City Hospital on above:Order Comment: Specimen Type: BLOOD SPECIMENOrdering Facility: [facility] Address:[address] [place], [place] [address]Performed By: #### 77278-7 ####[facility] LABCLIA [id number] [place] [address] [place] RBC (Bld) [#/Vol]2.58 10*6/uLLow4.20-6.00[facility] on above:Order Comment: Specimen Type: BLOOD SPECIMENOrdering Facility: [facility] Address:[address] [place], [place] [address]Performed By: #### 56871-5 ####[facility] LABCLIA [id number] [address], [place] [address] [place] AMERICARED CELL MORPH Reviewed: see results of individual morphologiesNoMain Campus Medical Center Comment on above:Order Comment: Specimen Type: BLOOD SPECIMENOrdering Facility: [facility] Address:[address] [place] [address] Performed By: #### 15141-1 ####[facility] LABCLIA [id number] [address], [facility]95 [place] Target cells LM Ql (Bld)[facility] on above: Order Comment: Specimen Type: BLOOD SPECIMENOrdering Facility: [facility] Address:[address] [place], [place] [address]Performed By: #### 97141- 8 ####[facility] LABCLIA [id number] [address], [place] [address] [place] OF AMERICAWBC (Bld) [#/Vol]10.22 10*3/uL Normal3.70-11.00[facility] on above:Order Comment: Specimen Type: BLOOD SPECIMENOrdering Facility: [facility] Address:[address] [place], [place] [address]Performed By: #### 34571-9 ####[facility] LABCLIA [id number] [place] [address] [place] AMERICAWBC Left Shift Ql (Bld)Present NormalTriHealth McCull[facility] on above:Order Comment: Specimen Type: BLOOD SPECIMENOrdering Facility: [facility] Address:[address] [place], [place] [address]Performed By: #### 03481-5 ####[facility] LABCLIA [id number] [address], [facility]95 [place] AMERICACONSULT PROGon 64-33-8830RMLHZLF PROGNormalMartins Ferry Hospitalprehensive metabolic 2000 panelon 58-25-2297Txsqjqj [Mass/Vol]2.0 g/dLLow3.9-4.9CFostoria City Hospital on above:Order Comment: Specimen Type: BLOOD SPECIMENOrdering Facility: [facility] Address:[address] [place], [place] [address]Performed By: #### 56821-6, 10954-3, 2776-04 ####[facility] LABCLIA [id number] [address] [address] [place] AMERICAALP [Catalytic activity/Vol]476 U/CYcvf65-907UzeaavafhTriHealth McCullough-[facility] on above:Order Comment: Specimen Type: BLOOD SPECIMENOrdering Facility: [facility] Address:[address] [place], [place] [address]Performed By: #### 50653-6, , 2776-04 ####[facility] LABCLIA [id number] VIL[place] [address] [place] AMERICAALT [Catalytic activity/Vol]41 U/ABsvgct62-88FvchgshrfTriHealth [facility] on above:Order Comment: Specimen Type: BLOOD SPECIMENOrdering Facility: [facility] Address:[address] [place], [place] [address]Performed By: #### 33219-1, , 2776-04 ####[facility] LABCLIA [id number] [address] [place] AMERICAAnion gap [Moles/Vol]12 mmol/L Normal8-15[facility] on above:Order Comment: Specimen Type: BLOOD SPECIMENOrdering Facility: [facility] Address:[address] [place], [place] [address]Performed By: #### 36165-4, , 2776- ####[facility] LABCLIA [id number] [address] [address] [place] AMERICAAST [Catalytic activity/Vol]34 U/VVgkfld75-00ObkxrgfmsTriHealth [facility] on above:Order Comment: Specimen Type: BLOOD SPECIMENOrdering Facility: [facility] Address:[address] [place], [place] [address]Performed By: #### 14208-4, , 2776-04 ####[facility] LABCLIA [id number] [address] [place] AMERICABilirubin [Mass/Vol]0.3 mg/dL Normal0.2-1.3CFostoria City Hospital on above:Order Comment: Specimen Type: BLOOD SPECIMENOrdering Facility: [facility] Address:[address] [place], [place] [address]Performed By: #### 42023-0, , 2776-04 ####[facility] LABCLIA [id number] [address] [place] AMERICACalcium [Mass/Vol]8.0 mg/dLLow 8.5-10.2CFostoria City Hospital on above:Order Comment: Specimen Type: BLOOD SPECIMENOrdering Facility: [facility] Address:[address] [place], [place] [address]Performed By: #### 45794-8, , 2776-04 ####[facility] LABCLIA [id number] [place] [address] [place] AMERICAChloride [Moles/Vol]102 mmol/L Uydipr40-599QitadlaozTriHealth McCullough-[facility] on above:Order Comment: Specimen Type: BLOOD SPECIMENOrdering Facility: [facility] Address:[address] [place], [place] [address]Performed By: #### 47431-2, , 2776-04 ####[facility] LABCLIA [id number] [place] [address] [place] AMERICACO2 [Moles/Vol]20 mmol/VLvh05-97 [facility] on above:Order Comment: Specimen Type: BLOOD SPECIMENOrdering Facility: [facility] Address:[address] [place] [address]Opctlcfff By: #### 80483-0, , 2776-04 ####[facility] LABIA [id number] [address] [place] AMERICACreatinine [Mass/Vol]0.56 mg/dLLow0.73-1.22 [facility] on above:Order Comment: Specimen Type: BLOOD SPECIMENOrdering Facility: [facility] Address:[address] [place] [address]Fadlzknsq By: #### 64008-0, , 2776-04 ####[facility]ITALIA [id number] [address] [place] AMERICAeGFRcr SerPlBld CKD-EPI 0441890 mL/min/1.73m??? Normal>=60[facility] on above:Order Comment: Specimen Type: BLOOD SPECIMENOrdering Facility: [facility] Address:[address] [place] [address]Vwcnmh Comment: Estimated Glomerular Filtration Rate (eGFR) is calculated using the 2020 CKD-EPI creatinine equation. This equation utilizes serum creatinine, sex, and age as parameters. The creatinine assay has traceable calibration to isotope dilution-mass spectrometry. Refer to KDIGO guidelines for clinical interpretation. In patients with unstable renal function, e.g. those with acute kidney injury, the eGFR may not accurately reflect actual GFR.Performed By: #### 04479-4, , 2776-04 ####[facility] LABIA [id number] [address] [place] AMERICAGlucose [Mass/Vol]129 mg/pREywm96-98JmvfcitmcTriHealth [facility]ull[facility] on above:Order Comment: Specimen Type: BLOOD SPECIMENOrdering Facility: [facility] Address:[address] [place] [address]Zoilqo Comment: The [place] Diabetes [employer] (ADA) provides guidance for cutoff [...] unequivocal hyperglycemia, results should be confirmed by repeattesting. In a patient with classic symptoms of hyperglycemia or hyperglycemic crisis, random plasmaglucose results greater than or equal to 200 mg/dL meet the criteria for diagnosis of diabetes.Reference: Standards of Medical Care in Diabetes 2016, [employer] [place] [employer]. Diabetes Care. 2016.39(Suppl 1).Performed By: #### 10970- 8, 06365-7, 2776-04 ####[facility] LABNORTHWEST[facility] [id number] [address] [place] AMERICAPotassium [Moles/Vol] 3.9 mmol/LNormal3.7-5.1CFostoria City Hospital on above:Order Comment: Specimen Type: BLOOD SPECIMENOrdering Facility: [facility] Address:[address] [place], [place] [address]Performed By: #### 70196-6, , 2776-04 ####[facility] LABIA [id number] VIL[place] [address] [place] AMERICAProtein [Mass/Vol]5.0 g/dLLow 6.3-8.0[facility] on above:Order Comment: Specimen Type: BLOOD SPECIMENOrdering Facility: [facility] Address:[address] [place], [place] [address]Performed By: #### 98093-0, 93640-7, 2776-04 ####[facility] [id number] [place] [address] [place] AMERICASodium [Moles/Vol]134 mmol/LLow 136-144[facility] on above:Order Comment: Specimen Type: BLOOD SPECIMENOrdering Facility: [facility] Address:[address] [place], [place] [address]Performed By: #### 32640-1, 28464-9, 2777-1 ####[facility] LABIA [id number], [place] [address] [place] AMERICAUrea nitrogen [Mass/Vol]24 mg/dL Normal9-24[facility] on above:Order Comment: Specimen Type: BLOOD SPECIMENOrdering Facility: [facility] Address:[address] [place], [place] [address]Performed By: #### 72411-3, 76448-3, 2777- ####[facility] LABIA [id number] [place]LE [address] [place] OF AMERICAMagnesium SerPl-mCncon 01-07-2025 Magnesium [Mass/Vol]1.8 mg/dLNormal1.7-2.3ClevelPremier Health Miami [facility] Hospital on above:Order Comment: Specimen Type: BLOOD SPECIMENOrdering Facility: [facility] Address:[address] [place], [place] [address]Performed By: #### 47896-3, 39814-2, 2777-1 ####[facility] LABIA [id number] [address] [place] Phosphate SerPl-mCncon 85-75-0864Efvcpnkre [Mass/Vol]3.5 mg/dLNormal2.7-4.8 [facility] on above:Order Comment: Specimen Type: BLOOD SPECIMENOrdering Facility: [facility] Address:[address] [place], [place] [address]Performed By: #### 97090-4, 65044-9, 2777-1 ####[facility] LABIA [id number] [place]LE [address] [place] AMERICATHERAPY NTon 41-61-9355JRWNZQA NTNormalClevelFormerly Vidant Roanoke-Chowan HospitalTacrolimus Bld-mCncon 06-24-6976Qrklhwifgp (Bld) [Mass/Vol]5.5 ng/mLNormal5.0-20.0[facility] on above:Order Comment: Specimen Type: BLOOD SPECIMENOrdering Facility: [facility] Address:[address] [place] [id number] Comment: Individualized target levels for a given [...] situation. Test performed by chemiluminescent immunoassay using [employer] i.Performed By: #### 91298-6 ####[facility] LABCLIA [id number] [address] [place] [address] [place] AMERICAUS CHEST EFFUSION SURVEYon 06-47-7090VC CHEST EFFUSION SURVEY NormalOur Lady Of Mercy Hospital - AndersonBacteria Bld Culton 07-80-8182Dofjxlyz identified Cx Nom (Bld)CULTURE, BLOOD: No growth 5 daysNormFort Hamilton Hospital on above:Performed By: #### 600-7 ####[facility] LABCLIA [id number] [address] [address] [place] AMERICABacteria identified Cx Nom (Bld)CULTURE, BLOOD: No growth 5 daysNormalCFostoria City Hospital on above:Performed By: #### 600-7 ####[facility] LABCLIA [id number] [address] [place] [address] [place] AMERICACBC W Auto Differential panel (Bld)on 96-30-9660Delgndmivcze Ql (Bld)PresentNormFort Hamilton Hospital on above:Order Comment: Specimen Type: BLOOD SPECIMENOrdering Facility: [facility] Address:[address] [place] [id number] By: #### 03427-6 ####[facility] LABCLIA [id number] [address] [address] [place] AMERICABasophils (Bld) [#/Vol]0.00 10*3/uLNormal<0.11CWestern Reserve Hospital Comment on above:Order Comment: Specimen Type: BLOOD SPECIMENOrdering Facility: [facility] Address:[address] [place] [address] Performed By: #### 28051-0 ####[facility] LABCLIA [id number] [address], [facility]95 [place] Basophils/100 WBC (Bld)0.0 %[facility] on above: Order Comment: Specimen Type: BLOOD SPECIMENOrdering Facility: [facility] Address:[address] [place], [place] [address]Performed By: #### 97835- 8 ####[facility] LABCLIA [id number] [place] [address] [place] AMERICADifferential cell count method Nom (Bld)ManualNormalCFostoria City Hospital on above:Order Comment: Specimen Type: BLOOD SPECIMENOrdering Facility: [facility] Address:[address] [place], [place] [address]Performed By: #### 70263-7 ####[facility] LABCLIA [id number] [place] [address] [place] AMERICAEosinophils (Bld) [#/Vol]0.00 10*3/uLNormal<0.46[facility] on above:Order Comment: Specimen Type: BLOOD SPECIMENOrdering Facility: [facility] Address:[address] [place], [place] [address]Performed By: #### 14858-6 ####[facility] LABCLIA [id number] [place] [address] [place] AMERICAEosinophils/100 WBC (Bld)0.0 % NormalTriHealth McCullough-Hyde Memorial [facility] on above:Order Comment: Specimen Type: BLOOD SPECIMENOrdering Facility: [facility] Address:[address] [place], [place] [address]Performed By: #### 67916-8 ####[facility] LABIA [id number] [place] [address] [place] [facility] MENTOR HOSPITALErythrocyte distribution width (RBC) [Ratio]17.8 %High11.5-15.0 [facility] on above:Order Comment: Specimen Type: BLOOD SPECIMENOrdering Facility: [facility] Address:[address] [place], [place] [address]Performed By: #### 99700-2 ####[facility] LABIA [id number] [address] STATES OF AMERICAHematocrit (Bld) [Volume fraction]27.7 %Low39.0-51.0[facility] AndersonComeaton rapids medical center on above:Order Comment: Specimen Type: BLOOD SPECIMENOrdering Facility: [facility] Address:[address] [place], [place] [address]Performed By: #### 56381-2 ####[facility] HOSPITALIA [id number] [place] [address] [place] Hemoglobin (Bld) [Mass/Vol]9.0 g/dLLow13.0-17.0[facility] on above:Order Comment: Specimen Type: BLOOD SPECIMENOrdering Facility: [facility] Address:[address] [place] [address] Performed By: #### 81654-8 ####[facility] LABIA [id number] [place] [address] [place] Lymphocytes (Bld) [#/Vol]0.28 10*3/uLLow1.00-4.00[facility] Comment on above:Order Comment: Specimen Type: BLOOD SPECIMENOrdering Facility: [facility] Address:[address] [place] [address] Performed By: #### 11933-7 ####[facility] LABIA [id number] [address] STATES OF [facility] Lymphocytes/100 WBC (Bld)2.6 %NormalTriHealth McCullough-[facility] on above: Order Comment: Specimen Type: BLOOD SPECIMENOrdering Facility: [facility] Address:[address] [place], [place] [address]Performed By: #### 15593- 8 ####[facility] LABCLIA [id number] [address] (RBC) [Entitic mass]31.1 pg Kxfsus87.0-34.0[facility] on above:Order Comment: Specimen Type: BLOOD SPECIMENOrdering Facility: [facility] Address:[address] [place], [place] [address]Performed By: #### 10191-5 ####[facility] LABCLIA [id number] [address] OF [facility]IN[facility] MENTOR HOSPITALMCHC (RBC) [Mass/Vol]32.5 g/dL Bznrpc87.5-36.0[facility] on above:Order Comment: Specimen Type: BLOOD SPECIMENOrdering Facility: [facility] Address:[address] [place], [place] [address]Performed By: #### 06906-9 ####[facility] LABCLIA [id number] [address] (RBC) [Entitic vol]95.8 fL Rotowc28.0-100.0[facility] on above:Order Comment: Specimen Type: BLOOD SPECIMENOrdering Facility: [facility] Address:[address] [place], [place] [address]Performed By: #### 44170-1 ####[facility] LABCLIA [id number] [address]ETMetamyelocytes/100 WBC (Bld)3.5 % NormalTriHealth McCullough-Hyde Memorial Hospital on above:Order Comment: Specimen Type: BLOOD SPECIMENOrdering Facility: [facility] Address:[address] [place], [place] [address]Performed By: #### 61527-0 ####[facility] LABCLIA [id number] [place] [address] [place] AMERICAMonocytes (Bld) [#/Vol]1.03 10*3/uLHigh<0.87[facility] AndersonComeaton rapids medical center on above:Order Comment: Specimen Type: BLOOD SPECIMENOrdering Facility: [facility] Address:[address] [place], [place] [address]Performed By: #### 18544-4 ####[facility] LABCLIA [id number] [place] [address] [place] Monocytes/100 WBC (Bld)9.6 %NormalOur Lady Of Mercy Hospital - AndersonComment on above: Order Comment: Specimen Type: BLOOD SPECIMENOrdering Facility: [facility] Address:[address] [place], [place] [address]Performed By: #### 64540- 8 ####[facility] LABCLIA [id number] [place] [address] [place] AMER[place]AMYELO%0.9 %NormalOur Lady Of Mercy Hospital - AndersonComeaton rapids medical [facility] on above:Order Comment: Specimen Type: BLOOD SPECIMENOrdering Facility: [facility] Address:[address] [place], [place] [address]Performed By: #### [id number] ####[facility] LABCLIA [id number] [address], [facility]95 [place] Neutrophils (Bld) [#/Vol]8.99 10*3/uLHigh1.45-7.50[facility] Comment on above:Order Comment: Specimen Type: BLOOD SPECIMENOrdering Facility: [facility] Address:[address] [place] [address] Performed By: #### [id number] ####[facility] LABCLIA [id number] [address], [facility]95 [place] Neutrophils/100 WBC (Bld)83.4 %NormalTriHealth [facility]ull[facility] on above: Order Comment: Specimen Type: BLOOD SPECIMENOrdering Facility: [facility] Address:[address] [place], [place] [address]Performed By: #### [id number]- 8 ####[facility] LABCLIA [id number] [place] [address] [place] STATES OF AMERICANucleated RBC (Bld) [#/Vol] 10*3/uLNormal<0.01[facility] on above:Order Comment: Specimen Type: BLOOD SPECIMENOrdering Facility: [facility] Address:[address] [place], [place] [address]Performed By: #### 71550-9 ####[facility] LABIA [id number] [place] [address] [place] AMERICANucleated RBC/100 WBC (Bld) [Ratio]0.0 /100 WBCNormalCFostoria City Hospital on above:Order Comment: Specimen Type: BLOOD SPECIMENOrdering Facility: [facility] Address:[address] [place], [place] [address]Performed By: #### 56190- 8 ####[facility] LABCLIA [id number] [place] [address] [place] OF AMERICAPlatelet mean volume (Bld) [Entitic vol]10.7 fLNormal9.0-12.7CFostoria City Hospital on above: Order Comment: Specimen Type: BLOOD SPECIMENOrdering Facility: [facility] Address:[address] [place], [place] [address]Performed By: #### 09055- 8 ####[facility] LABIA [id number] [place] [address] [place] AMERICAPlatelets (Bld) [#/Vol]284 10*3/qVXxbghn205-060XipbbarmiTriHealth [facility]ull[facility] on above:Order Comment: Specimen Type: BLOOD SPECIMENOrdering Facility: [facility] Address:[address] [place], [place] [address]Performed By: #### 93785-3 ####[facility] LABCLIA [id number] [address] [place] [address] [place] CATHOLIC HEALTHPlatelets Estimate (Bld) [#/Vol] AdequateNormalCWestern Reserve HospitalComeaton rapids medical center on above:Order Comment: Specimen Type: BLOOD SPECIMENOrdering Facility: [facility] Address:[address] [place], [place] [address]Performed By: #### 95865-9 ####[facility] LABCLIA [id number] [address] [place] [address] [facility]–TUSKEGEERB (Bld) [#/Vol]2.89 10*6/uLLow4.20-6.00[facility] AndersonComment on above:Order Comment: Specimen Type: BLOOD SPECIMENOrdering Facility: [facility] Address:[address] [place], [place] [address]Performed By: #### 49692-9 ####[facility] LABCLIA [id number] [address] [place] [address] [place] CATHOLIC HEALTHRED CELL MORPHReviewed: see results of individual morphologiesNoal [facility] on above:Order Comment: Specimen Type: BLOOD SPECIMENOrdering Facility: [facility] Address:[address] [place], [place] [address]Performed By: #### 27661-5 ####[facility] LABCLIA [id number] [address] [place] [address] [facility]–TUSKEGEEWBC (Bld) [#/Vol]10.78 10*3/uLNormal3.70-11.00[facility] Comment on above:Order Comment: Specimen Type: BLOOD SPECIMENOrdering Facility: [facility] Address:[address] [place], [place] [address] Performed By: #### 01722-2 ####[facility] LABCLIA [id number] [place] [address] [place] WBC Left Shift Ql (Bld)PresentNormalCFostoria City Hospital on above: Order Comment: Specimen Type: BLOOD SPECIMENOrdering Facility: [facility] Address:[address] [place], [place] [address]Performed By: #### 66204- 8 ####[facility] LABCLIA [id number] [place] [address] [place] OF AMERICACONSULT PROGon 41-80-1628KNNQNTJ PROGNormalOur Lady Of Mercy Hospital - AndersonCYTOMEGALOVIRUS (CMV) DNA, QUANTITATIVE PCR, PLASMAon 22-02-5969OTV DNA JESSICA+probe [#/Vol]65 IU/mLHighTriHealth [facility] on above:Order Comment: Specimen Type: BLOOD SPECIMENOrdering Facility: [facility] Address:[address] [place], [place] [address]Performed By: #### CMVQNT ####[facility] LABCLIA [id number] [place] [address] [place] CMV DNA JESSICA+probe [Log #/Vol]1.81 log IU/mLNormalOur [facility] Comment on above:Order Comment: Specimen Type: BLOOD SPECIMENOrdering Facility: [facility] Address:[address] [place] [address] Performed By: #### CMVQNT ####[facility] LABCLIA [id number] [place] [address] [place] CMV DNA JESSICA+probe Qn (P)DetectedAbnormalNot DetectedOur Lady Of [facility] Comment on above:Order Comment: Specimen Type: BLOOD SPECIMENOrdering Facility: [facility] Address:[address] [place] [address] Performed By: #### CMVQNT ####[facility] LABCLIA [id number] [place] [address] [place] Comprehensive metabolic 2000 panelon 48-55-9231Qjkuowm [Mass/Vol]2.4 g/dLLow 3.9-4.9CFostoria City Hospital on above:Order Comment: Specimen Type: BLOOD SPECIMENOrdering Facility: [facility] Address:[address] [place], [place] [address]Performed By: #### 57676-2, , 2776-04 ####[facility] LABCLIA [id number] [address] [place] [address] [place] OF AMERICAALP [Catalytic activity/Vol]759 U/CWrpp62-487CvcvbqremTriHealth [facility] on above:Order Comment: Specimen Type: BLOOD SPECIMENOrdering Facility: [facility] Address:[address] [place], [place] [address]Performed By: #### 40134-4, , 2776-04 ####[facility] LABCLIA [id number] [address] [place] OF AMERICAALT [Catalytic activity/Vol]68 U/CIiki06-67McugpzhulTriHealth [facility] on above:Order Comment: Specimen Type: BLOOD SPECIMENOrdering Facility: [facility] Address:[address] [place], [place] [address]Performed By: #### 83783-0, , 2776-04 ####[facility] LABCLIA [id number] [place] [address] [place] AMERICAAnion gap [Moles/Vol]11 mmol/L Normal8-15[facility] on above:Order Comment: Specimen Type: BLOOD SPECIMENOrdering Facility: [facility] Address:[address] [place] [address]Rxzanjlyr By: #### 71925-6, , 2776-04 ####[facility] LABCLIA [id number] [address] [place] OF AMERICAAST [Catalytic activity/Vol]60 U/GSzma09-90AbdchcgsyTriHealth [facility] on above:Order Comment: Specimen Type: BLOOD SPECIMENOrdering Facility: [facility] Address:[address] [place], [place] [address]Performed By: #### 30080-9, 41556-8, 2776-04 ####[facility] LABCLIA [id number] [address] [place] AMERICABilirubin [Mass/Vol]0.4 mg/dL Normal0.2-1.3CFostoria City Hospital on above:Order Comment: Specimen Type: BLOOD SPECIMENOrdering Facility: [facility] Address:[address] [place], [place] [address]Performed By: #### 83401-8, 06641-7, 2776-04 ####[facility] LABCLIA [id number], [place] [address] [place] AMERICACalcium [Mass/Vol]8.5 mg/dLNormal 8.5-10.2ClevelPremier Health Miami [facility] on above:Order Comment: Specimen Type: BLOOD SPECIMENOrdering Facility: [facility] Address:[address] [place], [place] [address]Performed By: #### 72060-0, 41311-0, 2776-04 ####[facility] LABCLIA [id number], [place] [address] [place] AMERICAChloride [Moles/Vol]102 mmol/L Pdbnjo80-509XeqiznhzcTriHealth McCullough-[facility] on above:Order Comment: Specimen Type: BLOOD SPECIMENOrdering Facility: [facility] Address:[address] [place], [place] [address]Performed By: #### 24693-3, 69979-4, 2776-04 ####[facility] LABIA [id number] VIL[place] [address] [place] AMERICACO2 [Moles/Vol]22 mmol/LNormal 22-30[facility] on above:Order Comment: Specimen Type: BLOOD SPECIMENOrdering Facility: [facility] Address:[address] [place], [place] [address]Performed By: #### 25042-0, 67309-9, 2776-04 ####[facility] [id number] [address] [place] AMERICACreatinine [Mass/Vol]0.64 mg/dL Low0.73-1.22[facility] on above:Order Comment: Specimen Type: BLOOD SPECIMENOrdering Facility: [facility] Address:[address] [place], [place] [address]Performed By: #### 85770-8, , 2776-04 ####[facility] [id number] VILLE [address] [place] OF AMERICAeGFRcr SerPlBld CKD-EPI 2811104 mL/min/1.73m???Normal>=60[facility] on above:Order Comment: Specimen Type: BLOOD SPECIMENOrdering Facility: [facility] Address:[address] [place], [place] [address]Result Comment: Estimated Glomerular Filtration Rate (eGFR) is calculated using the 2020 CKD-EPI cre atinine equation. This equation utilizes serum creatinine, sex, and age as parameters. The creatinine assay has traceable calibration to isotope dilution- mass spectrometry. Refer to KDIGO guidelines for clinical interpretation. In patients with unstable renal function, e.g. those with acute kidney injury, the eGFR may not accurately reflect actual GFR.Performed By: #### 05776-3, , 2776-04 ####[facility] [id number] [address] [place] OF AMERICAGlucose [Mass/Vol]129 mg/dLHigh 74-99[facility] on above:Order Comment: Specimen Type: BLOOD SPECIMENOrdering Facility: [facility] Address:[address] [place], [place] [address]Result Comment: The [place] [employer] (ADA) provides guidance for cutoff [...] unequivocal hyperglycemia, results should be confirmed by repeattesting. In a patient with classic symptoms of hyperglycemia or hyperglycemic crisis, random plasmaglucose results greater than or equal to 200 mg/dL meet the criteria for diagnosis of diabetes.Reference: Standards of Medical Care in Diabetes 2016, [employer] [place] [employer]. Diabetes Care. 2016.39(Suppl 1).Performed By: #### 77048- 8, , 2776-04 ####[facility] LABCLIA [id number][place] [address] [place] AMERICAPotassium [Moles/Vol] 3.7 mmol/LNormal3.7-5.1CFostoria City Hospital on above:Order Comment: Specimen Type: BLOOD SPECIMENOrdering Facility: [facility] Address:[address] [place], [place] [address]Performed By: #### 83810-9, , 2776-04 ####[facility] LABIA [id number], [place] [address] [place] AMERICAProtein [Mass/Vol]5.4 g/dLLow 6.3-8.0[facility] on above:Order Comment: Specimen Type: BLOOD SPECIMENOrdering Facility: [facility] Address:[address] [place], [place] [address]Performed By: #### 61340-8, , 2776-04 ####[facility] LABIA [id number], [place] [address] [place] AMERICASodium [Moles/Vol]135 mmol/LLow 136-144[facility] on above:Order Comment: Specimen Type: BLOOD SPECIMENOrdering Facility: [facility] Address:[address] [place], [place] [address]Performed By: #### 78470-2, , 2776-04 ####[facility] LABCLIA [id number] [address] [place] [address] [place] AMERICAUrea nitrogen [Mass/Vol]23 mg/dL Normal9-24[facility] on above:Order Comment: Specimen Type: BLOOD SPECIMENOrdering Facility: [facility] Address:[address] [place], [place] [address]Performed By: #### 94439-2, 57756-2, 2777-1 ####[facility] LABIA [id number] VILLE [address] [place] AMERICAMagnesium SerPl-mCncon 01-06-2025 Magnesium [Mass/Vol]1.4 mg/dLLow1.7-2.3CFostoria City Hospital on above:Order Comment: Specimen Type: BLOOD SPECIMENOrdering Facility: [facility] Address:[address] [place], [place] [address]Performed By: #### 91494-7, 99891-2, 2777- ####[facility] LABIA [id number] VILLE [address] [place] Phosphate SerPl-mCncon 92-85-9171Gshrihklj [Mass/Vol]3.4 mg/dLNormal2.7-4.8 [facility] on above:Order Comment: Specimen Type: BLOOD SPECIMENOrdering Facility: [facility] Address:[address] [place], [place] [address]Performed By: #### 01800-3, 65074-4, 2777- ####[facility] LABIA [id number] VILLE [address] [place] OF AMERICATHERAPY NTon 87-84-8064MOLYPNX NTNormalCleveland Formerly [facility] & Vidant Medical CenterTHERAPY NTNormalCleveland [facility] & [facility]idant Medical CenterTYPE + SCREENon 72-86-7276LCWHIgfjhePsgztawhtFostoria City Hospital on above:Order Comment: Specimen Type: BLOOD SPECIMENOrdering Facility: [facility] Address:[address] [place], [place] [address]Performed By: #### TSCR ####CC MAIN BLOOD BANKCLIA [id number] [place] [id number] [facility]–TUSKEGEERh Nom (Bld)PositiveNormFort Hamilton Hospital on above:Order Comment: Specimen Type: BLOOD SPECIMENOrdering Facility: [facility] Address:[address] [place], [place] [address]Performed By: #### TSCR ####CC MAIN BLOOD BANKCLIA [id number] [address] OF [facility] HOSPITALTYPE AND SCREEN EXPIRATION 01/09/2025 23:59NormalCFostoria City Hospital on above:Order Comment: Specimen Type: BLOOD SPECIMENOrdering Facility: [facility] Address:[address] [place], [place] [address]Performed By: #### TSCR ####[facility] BLOOD BANKIA [id number] [address] STREETTacrolimus Bld-mCncon 88-58-3391Evghrtphvc (Bld) [Mass/Vol]7.5 ng/mLNormal5.0-20.0[facility] on above:Order Comment: Specimen Type: BLOOD SPECIMENOrdering Facility: [facility] Address:[address] [place], [place] [address]Result Comment: Individualized target levels for a given [...] situation. Test performed by chemiluminescent immunoassay using [employer] i.Performed By: #### 35060-5 ####[facility] LABCLIA [id number] [address] OF [facility] HOSPITALCBC W Auto Differential panel (Bld)on 85-03-8024Xxkbkockaphs Ql (Bld)[facility] on above:Order Comment: Specimen Type: BLOOD SPECIMENOrdering Facility: [facility] Address:[address] [place], [place] [address]Performed By: #### 08180-8 ####[facility] LABCLIA [id number] [place] [address] [place] AMERICABasophils (Bld) [#/Vol]0.00 10*3/uLNormal<0.11CFostoria City Hospital on above:Order Comment: Specimen Type: BLOOD SPECIMENOrdering Facility: [facility] Address:[address] [place], [place] [address]Performed By: #### 86474-3 ####[facility] LABCLIA [id number] [place] [address] [place] AMERICABasophils/100 WBC (Bld)0.0 % NormalTriHealth McCullough-Hyde Memorial [facility] on above:Order Comment: Specimen Type: BLOOD SPECIMENOrdering Facility: [facility] Address:[address] [place], [place] [address]Performed By: #### 09240-7 ####[facility] LABCLIA [id number] [place] [address] [place] AMERICADifferential cell count method Nom (Bld)[facility] on above:Order Comment: Specimen Type: BLOOD SPECIMENOrdering Facility: [facility] Address:[address] [place], [place] [address]Performed By: #### 33721-2 ####[facility] LABCLIA [id number] [place] [address] [place] AMERICAEosinophils (Bld) [#/Vol]0.00 10*3/uLNormal<0.46[facility] on above:Order Comment: Specimen Type: BLOOD SPECIMENOrdering Facility: [facility] Address:[address] [place], [place] [address]Performed By: #### 75308-1 ####[facility] LABIA [id number] [address], [place] [address] [place] Eosinophils/100 WBC (Bld)0.0 %NormalTriHealth McCullough-Hy[facility] on above: Order Comment: Specimen Type: BLOOD SPECIMENOrdering Facility: [facility] Address:[address] [place], [place] [address]Performed By: #### 85336- 8 ####[facility] LABIA [id number] [address], [place] [address] [place] AMERICAErythrocyte distribution width (RBC) [Ratio]17.9 %High11.5-15.0[facility] on above:Order Comment: Specimen Type: BLOOD SPECIMENOrdering Facility: [facility] Address:[address] [place], [place] [address]Performed By: #### 99114- 8 ####[facility] HOSPITALIA [id number] [place] [address] [place] AMERICAHematocrit (Bld) [Volume fraction]25.0 %Low39.0-51.0[facility] on above:Order Comment: Specimen Type: BLOOD SPECIMENOrdering Facility: [facility] Address:[address] [place], [place] [address]Performed By: #### 51891- 8 ####[facility] LABIA [id number] [place] [address] [place] AMERICAHemoglobin (Bld) [Mass/Vol]8.2 g/dLLow13.0-17.0[facility] on above:Order Comment: Specimen Type: BLOOD SPECIMENOrdering Facility: [facility] Address:[address] [place], [place] [address]Performed By: #### 05751-3 ####[facility] LABIA [id number] [place] [address] [place] AMERICALymphocytes (Bld) [#/Vol]0.34 10*3/uLLow1.00-4.00[facility] on above:Order Comment: Specimen Type: BLOOD SPECIMENOrdering Facility: [facility] Address:[address] [place], [place] [address]Performed By: #### 26922-3 ####[facility] LABIA [id number] [place] [address] [place] AMERICALymphocytes/100 WBC (Bld)3.0 % NormalTriHealth McCullough-Hyde Memorial [facility] on above:Order Comment: Specimen Type: BLOOD SPECIMENOrdering Facility: [facility] Address:[address] [place], [place] [address]Performed By: #### 91808-1 ####[facility] HOSPITALIA [id number] [place] [address] [place] AMERICAMCH (RBC) [Entitic mass]30.6 iyUmezuk29.0-34.0[facility] on above:Order Comment: Specimen Type: BLOOD SPECIMENOrdering Facility: [facility] Address:[address] [place], [place] [address]Performed By: #### 60870-9 ####[facility] LABIA [id number] [place] [address] [place] MCHC (RBC) [Mass/Vol]32.8 g/iBVqmsva17.5-36.0[facility] on above:Order Comment: Specimen Type: BLOOD SPECIMENOrdering Facility: [facility] Address:[address] [place] [address] Performed By: #### 24332-0 ####[facility] LABIA [id number] [place] [address] [place] MCV (RBC) [Entitic vol]93.3 lJEiqszo15.0-100.0[facility] on above:Order Comment: Specimen Type: BLOOD SPECIMENOrdering Facility: [facility] Address:[address] [place] [address] Performed By: #### 97227-1 ####[facility] LABCLIA [id number] [address] [place] [address] [place] Metamyelocytes/100 WBC (Bld)3.0 %NormalTriHealth McCullough-Hy[facility] on above:Order Comment: Specimen Type: BLOOD SPECIMENOrdering Facility: [facility] Address:[address] [place], [place] [address]Performed By: #### 30639-0 ####[facility] LABCLIA [id number] [address], [place] [address] [place] AMERICAMonocytes (Bld) [#/Vol]1.01 10*3/uLHigh<0.87[facility] on above:Order Comment: Specimen Type: BLOOD SPECIMENOrdering Facility: [facility] Address:[address] [place], [place] [address]Performed By: #### 32108- 8 ####[facility] LABCLIA [id number] [address], [facility]95 [place] AMERICAMonocytes/100 WBC (Bld)9.0 % [facility] on above:Order Comment: Specimen Type: BLOOD SPECIMENOrdering Facility: [facility] Address:[address] [place], [place] [address]Performed By: #### 88368-1 ####[facility] LABCLIA [id number] [address], [facility]95 [place] AMERICAMYELO%2.0 %[facility] on above: Order Comment: Specimen Type: BLOOD SPECIMENOrdering Facility: [facility] Address:[address] [place], [place] [address]Performed By: #### 64044- 8 ####[facility] LABCLIA [id number] [address], [facility]95 [place] AMERICANeutrophils (Bld) [#/Vol]9.27 10*3/uLHigh1.45-7.50[facility] on above:Order Comment: Specimen Type: BLOOD SPECIMENOrdering Facility: [facility] Address:[address] [place], [place] [address]Performed By: #### 71961-0 ####[facility] LABCLIA [id number] [place] [address] [place] AMERICANeutrophils/100 WBC (Bld)83.0 % NormalTriHealth McCullough-Hyde Memorial [facility] on above:Order Comment: Specimen Type: BLOOD SPECIMENOrdering Facility: [facility] Address:[address] [place], [place] [address]Performed By: #### 44440-0 ####[facility] LABIA [id number] [place] [address] [place] AMERICANucleated RBC (Bld) [#/Vol]10*3/uLNormal<0.01[facility] on above:Order Comment: Specimen Type: BLOOD SPECIMENOrdering Facility: [facility] Address:[address] [place], [place] [address]Performed By: #### 07806-0 ####[facility] LABCLIA [id number] [place] [address] [place] Nucleated RBC/100 WBC (Bld) [Ratio]0.0 /100 WBCNormCleveland Clinic [facility] Comment on above:Order Comment: Specimen Type: BLOOD SPECIMENOrdering Facility: [facility] Address:[address] [place] [address] Performed By: #### 76592-5 ####[facility] LABCLIA [id number] [place] [address] [place] Ovalocytes LM Ql (Bld)FewNormalCFostoria City Hospital on above:Order Comment: Specimen Type: BLOOD SPECIMENOrdering Facility: [facility] Address:[address] [place], [place] [address]Performed By: #### 04675- 8 ####[facility] LABCLIA [id number] [place] [address] [place] AMERICAPlatelet mean volume (Bld) [Entitic vol]10.7 fLNormal9.0-12.7CFostoria City Hospital on above: Order Comment: Specimen Type: BLOOD SPECIMENOrdering Facility: [facility] Address:[address] [place], [place] [address]Performed By: #### [id number]- [id number] ####[facility] LABCLIA [id number] [place] [address] [place] AMERICAPlatelets (Bld) [#/Vol]277 10*3/uYUemmoo436-562LheoxsmlqTriHealth [facility] on above:Order Comment: Specimen Type: BLOOD SPECIMENOrdering Facility: [facility] Address:[address] [place], [place] [address]Performed By: #### [id number] ####[facility] LABCLIA [id number] [place] [address] [place]APlate[place] Estimate (Bld) [#/Vol] AdequateNormalCFostoria City Hospital on above:Order Comment: Specimen Type: BLOOD SPECIMENOrdering Facility: [facility] Address:[address] [place], [place] [address]Performed By: #### [id number] ####[facility] LABCLIA [id number] [address] [place] [address] [place] OF AMERICAPolychromasia LM Ql (Bld)SlightNormalCFostoria City Hospital on above:Order Comment: Specimen Type: BLOOD SPECIMENOrdering Facility: [facility] Address:[address] [place], [place] [address]Performed By: #### 89993-5 ####[facility] LABIA [id number] [place] [address] [place]I RBC (Bld) [#/Vol]2.68 10*6/uLLow4.20-6.00[facility] on above:Order Comment: Specimen Type: BLOOD SPECIMENOrdering Facility: [facility] Address:[address] [place], [place] [address]Performed By: #### 60636-6 ####[facility] LABCLIA [id number] [address] [place] [address] [place] OF AMERICARED CELL MORPH Reviewed: see results of individual [facility] Comment on above:Order Comment: Specimen Type: BLOOD SPECIMENOrdering Facility: [facility] Address:[address] [place] [address] Performed By: #### 90978-9 ####[facility] LABCLIA [id number] [address] [place] [address] [place] YSAMANI Target cells LM Ql (Bld)[facility] on above: Order Comment: Specimen Type: BLOOD SPECIMENOrdering Facility: [facility] Address:[address] [place], [place] [address]Performed By: #### 05148- 8 ####[facility] LABCLIA [id number] [address], [facility]95 [place] OF AMERICAToxic granules LM Ql (Bld)Present NormalTriHealth McCullough-Hyde Memorial [facility] on above:Order Comment: Specimen Type: BLOOD SPECIMENOrdering Facility: [facility] Address:[address] [place], [place] [address]Performed By: #### 48121-0 ####[facility] LABCLIA [id number] [address] [place] [address] [place] AMERICAWBC (Bld) [#/Vol]11.17 10*3/uLHigh3.70-11.00[facility] on above:Order Comment: Specimen Type: BLOOD SPECIMENOrdering Facility: [facility] Address:[address] [place], [place] [address]Performed By: #### 93437-2 ####[facility] LABCLIA [id number] [address] [place] [address] [place] WBC Left Shift Ql (Bld)PresentNormalClevelFormerly Vidant Roanoke-Chowan HospitalComment on above: Order Comment: Specimen Type: BLOOD SPECIMENOrdering Facility: [facility] Address:[address] [place], [place] [address]Performed By: #### 36252- 8 ####[facility] LABCLIA [id number] [address] [place] [address] [place] AMERICAComprehensive metabolic 2000 panelon 32-98-9098Bwcsmez [Mass/Vol]2.0 g/dLLow3.9-4.9ClevelFormerly [facility] Comment on above:Order Comment: Specimen Type: BLOOD SPECIMENOrdering Facility: [facility] Address:[address] [place] [address] Performed By: #### 90485-8, 70665-9, 2776- ####[facility] LABCLIA [id number] [place] [address] [place] AMERICAALP [Catalytic activity/Vol]520 U/SKmeg74-947AularokrtOur Lady Of [facility] Comment on above:Order Comment: Specimen Type: BLOOD SPECIMENOrdering Facility: [facility] Address:[address] [place] [address] Performed By: #### 81652-3, 38713-8, 7-1 ####[facility] LABCLIA [id number] [address] [place] OF AMERICAALT [Catalytic activity/Vol]62 U/QFwek03-24GlmumzwzkOur Lady Of [facility]cy [facility] Comment on above:Order Comment: Specimen Type: BLOOD SPECIMENOrdering Facility: [facility] Address:[address] [place], [place] [address] Performed By: #### 31745-6, 05861-2, 7-1 ####[facility] LABCLIA [id number] [place] [address] [place] AMERICAAnion gap [Moles/Vol]11 mmol/LNormal8-15[facility] - AndersonComment on above:Order Comment: Specimen Type: BLOOD SPECIMENOrdering Facility: [facility] Address:[address] [place] [address] Performed By: #### 20511-5, 33949-0, 2776-04 ####[facility] LABCLIA [id number] AVENUEANDERSON SANATORIUMK [place] [address] [place] AMERICAAST [Catalytic activity/Vol]57 U/QXplk68-92KljbmppxmOur Lady Of [facility] Comment on above:Order Comment: Specimen Type: BLOOD SPECIMENOrdering Facility: [facility] Address:[address] [place] [address] Performed By: #### 90214-4, , 2776-04 ####[facility] LABCLIA [id number] [address] [place] AMERICABilirubin [Mass/Vol]0.4 mg/dLNormal0.2-1.3CWestern Reserve Hospital Comment on above:Order Comment: Specimen Type: BLOOD SPECIMENOrdering Facility: [facility] Address:[address] [place] [address] Performed By: #### 49388-9, , 2776-04 ####[facility] LABCLIA [id number] AVENUEJENNIFER V[place] [address] [place] AMERICACalcium [Mass/Vol]8.1 mg/dLLow8.5-10.2CWestern Reserve HospitalComeaton rapids medical center on above:Order Comment: Specimen Type: BLOOD SPECIMENOrdering Facility: [facility] Address:[address] [place] [address] Performed By: #### 94516-9, , 2776-04 ####[facility] LABCLIA [id number] [address] [address] [place] OF AMERICAChloride [Moles/Vol]102 mmol/IWskntg19-122YrwnwsdwpOur Lady Of [facility] Comment on above:Order Comment: Specimen Type: BLOOD SPECIMENOrdering Facility: [facility] Address:[address] [place] [address] Performed By: #### 50717-8, , 2776-04 ####[facility] LABIA [id number] [place] [address] [place] AMERICACO2 [Moles/Vol]21 mmol/HXtk22-72RtpmpjtyrTriHealth [facility] on above:Order Comment: Specimen Type: BLOOD SPECIMENOrdering Facility: [facility] Address:[address] [place], [place] [address]Performed By: #### 76471-7, , 2776-04 ####[facility] LABNORTHWESTERN MEDICAL [facility] [id number] VIL[place] [address] [place] Creatinine [Mass/Vol]0.65 mg/dLLow0.73-1.22[facility] on above:Order Comment: Specimen Type: BLOOD SPECIMENOrdering Facility: [facility] Address:[address] [place], [place] [address]Performed By: #### 95527-0, , 2776-04 ####[facility] HOSPITALIA [id number] VIL[place] [address] [place] eGFRcr SerPlBld CKD-EPI 1342653 mL/min/1.73m???Normal>=60[facility] on above:Order Comment: Specimen Type: BLOOD SPECIMENOrdering Facility: [facility] Address:[address] [place], [place] [address]Result Comment: Estimated Glomerular Filtration Rate (eGFR) is [...] accurately reflect actual GFR. Performed By: #### 82959-1, , 2776-04 ####[facility] LABIA [id number] [address] [place] AMERICAGlucose [Mass/Vol]131 mg/oVEnix18-40MxuoocxgwTriHealth McCullough-[facility] on above:Order Comment: Specimen Type: BLOOD SPECIMENOrdering Facility: [facility] Address:[address] [place], [place] [address]Result Comment: The [place] Diabetes [employer] (ADA) provides guidance for cutoff [...] unequivocal hyperglycemia, results should be confirmed by repeattesting. In a patient with classic symptoms of hyperglycemia or hyperglycemic crisis, random plasmaglucose results greater than or equal to 200 mg/dL meet the criteria for diagnosis of diabetes.Reference: Standards of Medical Care in Diabetes 2016, [employer] [place] [employer]. Diabetes Care. 2016.39(Suppl 1).Performed By: #### 92459-9, 08759-3, 2776-04 ####[facility] LABIA [id number] [address] [place] AMERICAPotassium [Moles/Vol]3.7 mmol/LNormal3.7-5.1 [facility] on above:Order Comment: Specimen Type: BLOOD SPECIMENOrdering Facility: [facility] Address:[address] [place] [address]Ymklrhhnr By: #### 55741-3, 42003-5, 2776-04 ####[facility] LABNORTHWESTERN MEDICAL [facility] [id number] [address] [place] AMERICAProtein [Mass/Vol]4.8 g/dLLow6.3-8.0[facility] on above:Order Comment: Specimen Type: BLOOD SPECIMENOrdering Facility: [facility] Address:[address] [place], [place] [address]Performed By: #### 55376-3, 05137-0, 2777- ####[facility] LABCLIA [id number] [place] [address] [place] AMERICASodium [Moles/Vol]134 mmol/MEot980-462OyvirktzcTriHealth McCullough-[facility] Hospital on above:Order Comment: Specimen Type: BLOOD SPECIMENOrdering Facility: [facility] Address:[address] [place], [place] [address]Performed By: #### 06779-8, 79121-2, 2777- ####[facility] LABIA [id number] [place] [address] [place] AMERICAUrea nitrogen [Mass/Vol]17 mg/dLNormal9-24 [facility] on above:Order Comment: Specimen Type: BLOOD SPECIMENOrdering Facility: [facility] Address:[address] [place], [place] [address]Performed By: #### 62814-9, 53016-4, 2777- ####[facility] LABIA [id number] VILLE [address] [place] AMERICAMagnesium SerPl-mCncon 66-68-0662Bddaigryh [Mass/Vol]1.5 mg/dLLow1.7-2.3ClevelPremier Health Miami Valley Hospital on above:Order Comment: Specimen Type: BLOOD SPECIMENOrdering Facility: [facility] Address:[address] [place], [place] [address]Performed By: #### 34435- 8, 01784-6, 2777 ####[facility] LABNORTHWESTERN MEDICAL CENTER [id number] VILLE [address] [place] AMERICAPhosphate SerPl-mCnc on 55-56-6125Clmcfrutb [Mass/Vol]3.2 mg/dLNormal2.7-4.8ClevelPremier Health Miami [facility] Hospital on above:Order Comment: Specimen Type: BLOOD SPECIMENOrdering Facility: [facility] Address:[address] [place], [place] [address]Performed By: #### 08704-9, 95397-1, 2777-1 ####[facility] LABCLIA [id number] [address] [place] AMERICATacrolimus Bld-mCncon 32-02-3258Najayzlfgc (Bld) [Mass/Vol]5.5 ng/mLNormal5.0-20.0[facility] on above:Order Comment: Specimen Type: BLOOD SPECIMENOrdering Facility: [facility] Address:[address] [place], [place] [address]Result Comment: Individualized target levels for a given [...] situation. Test performed by chemiluminescent immunoassay using [employer] i.Performed By: #### 17935-4 ####[facility] LABIA [id number] [place] [address] [place] AMERICAUrinalysis complete panel (U)on 92-09-9204Qgfeidrs LM.HPF (Urine sed) [#/Area]NegativeNormalNegativeTriHealth [facility] on above:Order Comment: Specimen Type: URINE SPECIMENOrdering Facility: [facility] Address:[address] [place], [place] [address]Performed By: #### 26390-6 ####[facility] LABIA [id number] [place] [address] [place] AMERICABilirubin Ql (U) NegativeNormalNegativeTriHealth [facility] on above:Order Comment: Specimen Type: URINE SPECIMENOrdering Facility: [facility] Address:[address] [place], [place] [address]Performed By: #### 18701-3 ####[facility] LABIA [id number] [address] [place] [address] [place] AMERICAClarity (Unsp spec)ClearNormal ClearTriHealth McCullough-Hyde Memorial Hospital on above:Order Comment: Specimen Type: URINE SPECIMENOrdering Facility: [facility] Address:[address] [place], [place] [address]Performed By: #### 19961-3 ####[facility] LABCLIA [id number] [address] [place] [address] [place] AMERICAColor (U)YellowNormalYellowTriHealth [facility]ullough-[facility] on above:Order Comment: Specimen Type: URINE SPECIMENOrdering Facility: [facility] Address:[address] [place], [place] [address]Performed By: #### 34626-7 ####[facility] LABCLIA [id number] [address] [place] [address] [place] AMERICAEpithelial cells LM.HPF (Urine sed) [#/Area]None SeenNormalCFostoria City Hospital on above:Order Comment: Specimen Type: URINE SPECIMENOrdering Facility: [facility] Address:[address] [place], [place] [address]Performed By: #### 05917-8 ####[facility] LABCLIA [id number] [address] [place] [address] [place] AMERICAGlucose Test strip (U) [Mass/Vol]NegativeNormalNegativeTriHealth [facility] on above: Order Comment: Specimen Type: URINE SPECIMENOrdering Facility: [facility] Address:[address] [place], [place] [address]Performed By: #### 97847- 8 ####[facility] LABCLIA [id number] [address] [place] [address] [place] AMERICAHemoglobin Ql (U)NegativeNormal NegativeTriHealth McCullough-[facility]de [facility] on above:Order Comment: Specimen Type: URINE SPECIMENOrdering Facility: [facility] Address:[address] [place], [place] [address]Performed By: #### 87238-9 ####[facility] LABCLIA [id number] [address] [place] [address] [place] AMERICAHyaline casts (Urine sed) [#/Area]1-3 /LPFAbnormal0 /LPF [facility] on above:Order Comment: Specimen Type: URINE SPECIMENOrdering Facility: [facility] Address:[address] [place], [place] [address]Performed By: #### 11598-9 ####[facility] LABCLIA [id number] [address] [place] [address] [place] AMERICAKetones Ql (U)NegativeNormalNegativeTriHealth [facility] on above:Order Comment: Specimen Type: URINE SPECIMENOrdering Facility: [facility] Address:[address] [place], [place] [address]Performed By: #### 68033-3 ####[facility] LABCLIA [id number] [address] [place] [address] [place] AMERICALeukocyte esterase Test strip Ql (U)NegativeNormalNegativeTriHealth [facility] on above:Order Comment: Specimen Type: URINE SPECIMENOrdering Facility: [facility] Address:[address] [place], [place] [address]Performed By: #### 48472-1 ####[facility] LABCLIA [id number] [address] [place] [address] [place] AMERICANitrite Ql (U)Negative NormalNegativeTriHealth [facility] on above:Order Comment: Specimen Type: URINE SPECIMENOrdering Facility: [facility] Address:[address] [place], [place] [address]Performed By: #### 30206-8 ####[facility] LABCLIA [id number] [address] [place] [address] [place] AMERICApH (U)5.5 [pH]Normal5.0-8.0[facility] Comment on above:Order Comment: Specimen Type: URINE SPECIMENOrdering Facility: [facility] Address:[address] [place] [address] Performed By: #### 33736-0 ####[facility] LABCLIA [id number] [place] [address] [place] Protein (U) [Mass/Vol]1+AbnormalNegativeTriHealth [facility] on above:Order Comment: Specimen Type: URINE SPECIMENOrdering Facility: [facility] Address:[address] [place], [place] [address]Performed By: #### 34336-5 ####[facility] LABIA [id number] [place] [address] [place] [facility] HOSPITALRB LM.HPF (Urine sed) [#/Area]0-2 /HPFNormal0-2 /HPFTriHealth McCullough-Hyde [facility] on above:Order Comment: Specimen Type: URINE SPECIMENOrdering Facility: [facility] Address:[address] [place], [place] [address]Performed By: #### 58020- 8 ####[facility] LABIA [id number] [place] [address] [place] AMERICASpecific gravity (U) [Rel density]1.016Grrfrk4.005-1.030[facility] on above:Order Comment: Specimen Type: URINE SPECIMENOrdering Facility: [facility] Address:[address] [place], [place] [address]Performed By: #### 33546- 8 ####[facility] LABIA [id number] [place] [address] [place] OF [facility] MENTOR HOSPITALUrobilinogen Ql (U)0.2 EU/dL Normal0.2-1.0 EU/dLTriHealth McCullough-Hyde Memorial Hospital on above:Order Comment: Specimen Type: URINE SPECIMENOrdering Facility: [facility] Address:[address] [place], [place] [address]Performed By: #### 70432-9 ####[facility] LABCLIA [id number] [address] [place] [address] [place] AMERICAWBC LM.HPF (Urine sed) [#/Area]0- 5 /HPFNormal0-5 /HPFTriHealth McCullough-[facility] on above:Order Comment: Specimen Type: URINE SPECIMENOrdering Facility: [facility] Address:[address] [place], [place] [address]Performed By: #### 18245-8 ####[facility] LABCLIA [id number] [address] [place] [address] [place] AMERICAYeast.budding LM.HPF (Urine sed) [#/Area]PresentAbnormalNone SeenTriHealth McCullough-Hyde Memorial Hospital on above:Order Comment: Specimen Type: URINE SPECIMENOrdering Facility: [facility] Address:[address] [place], [place] [address]Performed By: #### 33584- 8 ####[facility] LABCLIA [id number] [address] [place] [facility] [place] AMERICABacteria LM.HPF (Urine sed) [#/Area]NegativeNormalNegativeTriHealth [facility] on above:Order Comment: Specimen Type: URINE SPECIMENOrdering Facility: [facility] Address:[address] [place], [place] [address]Performed By: #### 09649- 8 ####[facility] LABCLIA [id number] [address] [place] [address] [place] AMERICABilirubin Ql (U)NegativeNormal NegativeTriHealth McCullough-[facility] on above:Order Comment: Specimen Type: URINE SPECIMENOrdering Facility: [facility] Address:[address] [place], [place] [address]Performed By: #### 92705-8 ####[facility] LABCLIA [id number] [address] [place] [address] [place] AMERICAClarity (Unsp spec)CloudyAbnormalClearCleveland Clinic ClevelandComment on above:Order Comment: Specimen Type: URINE SPECIMENOrdering Facility: [facility] Address:[address] [place], [place] [address]Performed By: #### 03564-5 ####[facility] LABCLIA [id number] [address] [place] [address] [place] Color (U)YellowNormalYellowTriHealth [facility]ull[facility] on above:Order Comment: Specimen Type: URINE SPECIMENOrdering Facility: [facility] Address:[address] [place], [place] [address]Performed By: #### 28309- 8 ####[facility] LABIA [id number] [address], [facility]95 [place] AMERICAEpithelial cells LM.HPF (Urine sed) [#/Area]FewNormalCFostoria City Hospital on above:Order Comment: Specimen Type: URINE SPECIMENOrdering Facility: [facility] Address:[address] [place], [place] [address]Performed By: #### 16388-5 ####[facility] LABIA [id number] [address], [facility]95 [place] AMERICAGlucose Test strip (U) [Mass/Vol] NegativeNormalNegativeTriHealth [facility] on above:Order Comment: Specimen Type: URINE SPECIMENOrdering Facility: [facility] Address:[address] [place], [place] [address]Performed By: #### 39266-1 ####[facility] LABCLIA [id number] [address] [place] [address] [place] AMERICAHemoglobin Ql (U)NegativeNormal NegativeTriHealth McCullough-[facility] on above:Order Comment: Specimen Type: URINE SPECIMENOrdering Facility: [facility] Address:[address] [place], [place] [address]Performed By: #### 29110-7 ####[facility] LABCLIA [id number] [address] [place] [address] [place] AMERICAHyaline casts (Urine sed) [#/Area]1-3 /LPFAbnormal0 /LPF [facility] on above:Order Comment: Specimen Type: URINE SPECIMENOrdering Facility: [facility] Address:[address] [place], [place] [address]Performed By: #### 57615-3 ####[facility] LABCLIA [id number] [address] [place] [address] [place] AMERICAKetones Ql (U)NegativeNormalNegativeTriHealth [facility] on above:Order Comment: Specimen Type: URINE SPECIMENOrdering Facility: [facility] Address:[address] [place], [place] [address]Performed By: #### 06108-9 ####[facility] LABCLIA [id number] [place] [address] [place] AMERICALeukocyte esterase Test strip Ql (U)NegativeNormalNegativeTriHealth [facility] on above:Order Comment: Specimen Type: URINE SPECIMENOrdering Facility: [facility] Address:[address] [place], [place] [address]Performed By: #### 13339-6 ####[facility] LABCLIA [id number] [address] [place] [address] [place] AMERICANitrite Ql (U)Negative NormalNegativeTriHealth [facility] on above:Order Comment: Specimen Type: URINE SPECIMENOrdering Facility: [facility] Address:[address] [place], [place] [address]Performed By: #### 26363-5 ####[facility] LABCLIA [id number] [address] [place] [address] [place] AMERICApH (U)6.0 [pH]Normal5.0-8.0[facility] Comment on above:Order Comment: Specimen Type: URINE SPECIMENOrdering Facility: [facility] Address:[address] [place] [address] Performed By: #### 58616-0 ####[facility] LABIA [id number] [place] [address] [place] Protein (U) [Mass/Vol]1+AbnormalNegativeTriHealth [facility] on above:Order Comment: Specimen Type: URINE SPECIMENOrdering Facility: [facility] Address:[address] [place], [place] [address]Performed By: #### 56324-3 ####[facility] LABIA [id number] [address] STATES OF [facility]LEVEL[facility] CLINIC MENTOR HOSPITALRBC LM.HPF (Urine sed) [#/Area]3-5 /HPFAbnormal0-2 /HPFTriHealth McCullough-[facility] on above: Order Comment: Specimen Type: URINE SPECIMENOrdering Facility: [facility] Address:[address] [place], [place] [address]Performed By: #### [id number]- [id number] ####[facility] [id number] [place] [address] [place] OF AMERICASpecific gravity (U) [Rel density]1.040Yjnzeh8.005-1.030[facility] on above:Order Comment: Specimen Type: URINE SPECIMENOrdering Facility: [facility] Address:[address] [place], [place] [address]Performed By: #### [id number]- [id number] ####[facility] [id number] [address] OF [facility] HOSPITALUrobilinogen Ql (U)0.2 EU/dL Normal0.2-1.0 EU/dLTriHealth [facility]ull[facility] on above:Order Comment: Specimen Type: URINE SPECIMENOrdering Facility: [facility] Address:[address] [place], [place] [address]Performed By: #### [id number] ####[facility] LABIA [id number] [place] [address] [place] AMERICAWBC LM.HPF (Urine sed) [#/Area]0- 5 /HPFNormal0-5 /HPFTriHealth McCullough-Hyde Memorial Hospital on above:Order Comment: Specimen Type: URINE SPECIMENOrdering Facility: [facility] Address:[address] [place], [place] [address]Performed By: #### 73323-1 ####[facility] LABIA [id number] [place] [address] [place] AMERICAYeast.budding LM.HPF (Urine sed) [#/Area]PresentAbnormalNone SeenTriHealth McCullough-Hyde Memorial Hospital on above:Order Comment: Specimen Type: URINE SPECIMENOrdering Facility: [facility] Address:[address] [place], [place] [address]Performed By: #### 63771- 8 ####[facility] LABIA [id number] [place] [address] [place] AMERICACBC W Auto Differential panel (Bld)on 03-85-0539Zvtsavtwtgfq Ql (Bld)PresentNormalCWestern Reserve Hospital Comment on above:Order Comment: Specimen Type: BLOOD SPECIMENOrdering Facility: [facility] Address:[address] [place] [address] Performed By: #### 53859-1 ####[facility] LABIA [id number] [place] [address] [place] Basophils (Bld) [#/Vol]0.17 10*3/uLHigh<0.11CFostoria City Hospital on above:Order Comment: Specimen Type: BLOOD SPECIMENOrdering Facility: [facility] Address:[address] [place], [place] [address]Performed By: #### 27393-2 ####[facility] LABIA [id number] [place] [address] [place] AMERICABasophils/100 WBC (Bld)1.7 %NormalTriHealth McCullough-Hyde Memorial Hospital on above:Order Comment: Specimen Type: BLOOD SPECIMENOrdering Facility: [facility] Address:[address] [place], [place] [address]Performed By: #### 45300-7 ####[facility] LABCLIA [id number] [address], [place] [address] [place] OF AMERICADacrocytes LM Ql (Bld)FewNormal [facility] on above:Order Comment: Specimen Type: BLOOD SPECIMENOrdering Facility: [facility] Address:[address] [place], [place] [address]Performed By: #### 63192-1 ####[facility] LABCLIA [id number] [address], [place] [address] [place] AMERICADifferential cell count method Nom (Bld)ManualNormalCFostoria City Hospital on above:Order Comment: Specimen Type: BLOOD SPECIMENOrdering Facility: [facility] Address:[address] [place], [place] [address]Performed By: #### 45075-8 ####[facility] LABCLIA [id number] [address], [place] [address] [place] Eosinophils (Bld) [#/Vol]0.00 10*3/uLNormal<0.46[facility] Comment on above:Order Comment: Specimen Type: BLOOD SPECIMENOrdering Facility: [facility] Address:[address] [place] [address] Performed By: #### 68633-1 ####[facility] LABCLIA [id number] [place] [address] [place] Eosinophils/100 WBC (Bld)0.0 %NormalTriHealth McCullough-Hyde Memorial Hospital on above: Order Comment: Specimen Type: BLOOD SPECIMENOrdering Facility: [facility] Address:[address] [place], [place] [address]Performed By: #### 11129- 8 ####[facility] LABCLIA [id number] [address], [place] [address] [place] AMERICAErythrocyte distribution width (RBC) [Ratio]17.2 %High11.5-15.0[facility] on above:Order Comment: Specimen Type: BLOOD SPECIMENOrdering Facility: [facility] Address:[address] [place], [place] [address]Performed By: #### 93437- 8 ####[facility] LABIA [id number] [place] [address] [place] AMERICAHematocrit (Bld) [Volume fraction]27.7 %Low39.0-51.0[facility] on above:Order Comment: Specimen Type: BLOOD SPECIMENOrdering Facility: [facility] Address:[address] [place], [place] [address]Performed By: #### 41618- 8 ####[facility] LABIA [id number] [place] [address] [place] AMERICAHemoglobin (Bld) [Mass/Vol]9.0 g/dLLow13.0-17.0[facility] on above:Order Comment: Specimen Type: BLOOD SPECIMENOrdering Facility: [facility] Address:[address] [place], [place] [address]Performed By: #### 45283-1 ####[facility] LABIA [id number] [place] [address] [place] AMERICALymphocytes (Bld) [#/Vol]0.60 10*3/uLLow1.00-4.00[facility] on above:Order Comment: Specimen Type: BLOOD SPECIMENOrdering Facility: [facility] Address:[address] [place], [place] [address]Performed By: #### 78166-3 ####[facility] LABIA [id number] [place] [address] [place] AMERICALymphocytes/100 WBC (Bld)6.0 % NormalTriHealth McCullough-Hyde Memorial Hospital on above:Order Comment: Specimen Type: BLOOD SPECIMENOrdering Facility: [facility] Address:[address] [place], [place] [address]Performed By: #### 89777-4 ####[facility] LABIA [id number] [place] [address] [place] [facility] HOSPITALMCH (RBC) [Entitic mass]30.7 hjSzanoo07.0-34.0[facility] on above:Order Comment: Specimen Type: BLOOD SPECIMENOrdering Facility: [facility] Address:[address] [place], [place] [address]Performed By: #### 75034-0 ####[facility] LABIA [id number] [place] [address] [place] MCHC (RBC) [Mass/Vol]32.5 g/wQDyvdnz55.5-36.0[facility] on above:Order Comment: Specimen Type: BLOOD SPECIMENOrdering Facility: [facility] Address:[address] [place] [address] Performed By: #### 10811-0 ####[facility] [id number] [address] [place] MCV (RBC) [Entitic vol]94.5 lWEevyde71.0-100.0[facility] on above:Order Comment: Specimen Type: BLOOD SPECIMENOrdering Facility: [facility] Address:[address] [place] [address] Performed By: #### 91975-2 ####[facility] LABIA [id number] [address] STATES [place] Metamyelocytes/100 WBC (Bld)7.8 %NormalTriHealth McCullough-Hyde Memorial Hospital on above:Order Comment: Specimen Type: BLOOD SPECIMENOrdering Facility: [facility] Address:[address] [place], [place] [address]Performed By: #### 58415-5 ####[facility] LABIA [id number] [address] [place], [place] [address] [place] AMERICAMonocytes (Bld) [#/Vol]1.39 10*3/uLHigh<0.87[facility] on above:Order Comment: Specimen Type: BLOOD SPECIMENOrdering Facility: [facility] Address:[address] [place], [place] [address]Performed By: #### 60852- 8 ####[facility] LABCLIA [id number] [address] [place] [address] [place] AMERICAMonocytes/100 WBC (Bld)13.8 % NormalTriHealth McCullough-Hyde Memorial Hospital on above:Order Comment: Specimen Type: BLOOD SPECIMENOrdering Facility: [facility] Address:[address] [place], [place] [address]Performed By: #### 34620-0 ####[facility] LABCLIA [id number] [address], [place] [address] [place] AMERICAMYELO%2.6 %NormalTriHealth McCullough-[facility] on above: Order Comment: Specimen Type: BLOOD SPECIMENOrdering Facility: [facility] Address:[address] [place], [place] [address]Performed By: #### 52842- 8 ####[facility] LABCLIA [id number] [address], [facility]95 [place] AMERICANeutrophils (Bld) [#/Vol]6.84 10*3/uLNormal1.45-7.50[facility] on above:Order Comment: Specimen Type: BLOOD SPECIMENOrdering Facility: [facility] Address:[address] [place], [place] [address]Performed By: #### 12638-7 ####[facility] LABCLIA [id number] [place] [address] [place] AMERICANeutrophils/100 WBC (Bld)68.1 % NormalTriHealth McCullough-Hyde Memorial Hospital on above:Order Comment: Specimen Type: BLOOD SPECIMENOrdering Facility: [facility] Address:[address] [place], [place] [address]Performed By: #### 25365-1 ####[facility] LABCLIA [id number] [place] [address] [place] AMERICANucleated RBC (Bld) [#/Vol]10*3/uLNormal<0.01[facility] on above:Order Comment: Specimen Type: BLOOD SPECIMENOrdering Facility: [facility] Address:[address] [place], [place] [address]Performed By: #### 87758-4 ####[facility] LABCLIA [id number] [place] [address] [place] Nucleated RBC/100 WBC (Bld) [Ratio]0.0 /100 WBCNormalCWestern Reserve Hospital Comment on above:Order Comment: Specimen Type: BLOOD SPECIMENOrdering Facility: [facility] Address:[address] [place] [address] Performed By: #### 54076-7 ####[facility] LABCLIA [id number] [place] [address] [place] Ovalocytes LM Ql (Bld)FewNormalCFostoria City Hospital on above:Order Comment: Specimen Type: BLOOD SPECIMENOrdering Facility: [facility] Address:[address] [place], [place] [address]Performed By: #### 22173- 8 ####[facility] LABCLIA [id number] [place] [address] [place] AMERICAPlatelet mean volume (Bld) [Entitic vol]10.9 fLNormal9.0-12.7CWestern Reserve HospitalComeaton rapids medical center on above: Order Comment: Specimen Type: BLOOD SPECIMENOrdering Facility: [facility] Address:[address] [place], [place] [address]Performed By: #### 42656- 8 ####[facility] LABCLIA [id number] [place] [address] [place] AMERICAPlatelets (Bld) [#/Vol]255 10*3/yJWykdsu063-404OuardchksTriHealth McCullough-Hy[facility] Hospital on above:Order Comment: Specimen Type: BLOOD SPECIMENOrdering Facility: [facility] Address:[address] [place], [place] [address]Performed By: #### 53109-8 ####[facility] LABCLIA [id number] [facility]K [address] [place] [address] [place] AMERICAPlatelets Estimate (Bld) [#/Vol] AdequateNormalCFostoria City Hospital on above:Order Comment: Specimen Type: BLOOD SPECIMENOrdering Facility: [facility] Address:[address] [place], [place] [address]Performed By: #### 10993-2 ####[facility] LABCLIA [id number] [facility] [address] [place] [address] [place] AMERICAPolychromasia LM Ql (Bld)SlightNormalCFostoria City Hospital on above:Order Comment: Specimen Type: BLOOD SPECIMENOrdering Facility: [facility] Address:[address] [place], [place] [address]Performed By: #### 04142-3 ####[facility] LABCLIA [id number] [facility] [address] [place] [address] [place] RBC (Bld) [#/Vol]2.93 10*6/uLLow4.20-6.00[facility] on above:Order Comment: Specimen Type: BLOOD SPECIMENOrdering Facility: [facility] Address:[address] [place], [place] [address]Performed By: #### 17738-6 ####[facility] LABCLIA [id number] [facility] [address] [place] [address] [place] AMERICARBC FRAGMENTSFew AbnormalNone SeenTriHealth McCullough-Hy[facility] on above:Order Comment: Specimen Type: BLOOD SPECIMENOrdering Facility: [facility] Address:[address] [place], [place] [address]Performed By: #### 76932-8 ####[facility] LABCLIA [id number] [address] [place] [address] [place] AMERICARED CELL MORPHReviewed: see results of individual [facility] on above:Order Comment: Specimen Type: BLOOD SPECIMENOrdering Facility: [facility] Address:[address] [place], [place] [address]Performed By: #### 24484-4 ####[facility] LABCLIA [id number] [address] [place] [address] [place] AMERICATarget cells LM Ql (Bld)FewPomerene Hospital on above:Order Comment: Specimen Type: BLOOD SPECIMENOrdering Facility: [facility] Address:[address] [place], [place] [address]Performed By: #### 69359-0 ####[facility] LABCLIA [id number] [address], [place] [address] [place] AMERICAToxic granules LM Ql (Bld)[facility] on above:Order Comment: Specimen Type: BLOOD SPECIMENOrdering Facility: [facility] Address:[address] [place], [place] [address]Performed By: #### 27401-8 ####[facility] LABCLIA [id number] [address], [place] [address] [place] WBC (Bld) [#/Vol]10.04 10*3/uLNormal3.70-11.00[facility] on above:Order Comment: Specimen Type: BLOOD SPECIMENOrdering Facility: [facility] Address:[address] [place] [address] Performed By: #### 00900-0 ####[facility] LABCLIA [id number] [address], [facility]95 [place] WBC Left Shift Ql (Bld)[facility] on above: Order Comment: Specimen Type: BLOOD SPECIMENOrdering Facility: [facility] Address:[address] [place], [place] [address]Performed By: #### 66857- 8 ####[facility] LABCLIA [id number] [address] [address] [place] AMERICACRP SerPl-mCncon 17-39-0956SIB [Mass/Vol]23.2 mg/dLHigh<0.9[facility] on above:Order Comment: Specimen Type: BLOOD SPECIMENOrdering Facility: [facility] Address:[address] [place], [place] [address]Performed By: #### 1988-5 ####[facility] LABCLIA [id number] [address] [address] [place] OF AMERICACT ABD/PEL WO IVCONon 01-04-2025 CT ABD/PEL WO IVCGrant HospitalCT CHEST WO IVCONon 12-94-0669ML CHEST WO IVCGrant HospitalComprehensive metabolic 2000 panelon 97-53-2751Arudplu [Mass/Vol]2.2 g/dLLow3.9-4.9ClevelPremier Health [facility] on above:Order Comment: Specimen Type: BLOOD SPECIMENOrdering Facility: [facility] Address:[address] [place], [place] [address]Performed By: #### 62697-3, , 2776-04 ####[facility] LABCLIA [id number] [place] [address] [place] AMERICAALP [Catalytic activity/Vol]616 U/XBomz85-666 [facility] on above:Order Comment: Specimen Type: BLOOD SPECIMENOrdering Facility: [facility] Address:[address] [place], [place] [address]Performed By: #### 87953-5, 84059-9, 2776-1 ####[facility] LABCLIA [id number] [place] [address] [place] AMERICAALT [Catalytic activity/Vol]69 U/YCwrd14-31 [facility] on above:Order Comment: Specimen Type: BLOOD SPECIMENOrdering Facility: [facility] Address:[address] [place], [place] [address]Performed By: #### 56980-3, 18570-9, 2776-04 ####[facility] LABCLIA [id number] AVENUEANDERSON SANATORIUMK [place] [address] [place] AMERICAAnion gap [Moles/Vol]11 mmol/LNormal8-15[facility] on above:Order Comment: Specimen Type: BLOOD SPECIMENOrdering Facility: [facility] Address:[address] [place], [place] [address]Performed By: #### 62715-9, , 2776-04 ####[facility] LABCLIA [id number] [place] [address] [place] AMERICAAST [Catalytic activity/Vol]105 U/HZdsy59-35 [facility] on above:Order Comment: Specimen Type: BLOOD SPECIMENOrdering Facility: [facility] Address:[address] [place], [place] [address]Performed By: #### 71634-5, , 2776-04 ####[facility] LABCLIA [id number] [place] [address] [place] AMERICABilirubin [Mass/Vol]0.8 mg/dLNormal0.2-1.3 [facility] on above:Order Comment: Specimen Type: BLOOD SPECIMENOrdering Facility: [facility] Address:[address] [place], [place] [address]Performed By: #### 07449-6, , 2776-04 ####[facility] LABCLIA [id number] AVENUEANDERSON SANATORIUMK [address] [address] [place] AMERICACalcium [Mass/Vol]8.2 mg/dLLow8.5-10.2CFostoria City Hospital on above:Order Comment: Specimen Type: BLOOD SPECIMENOrdering Facility: [facility] Address:[address] [place], [place] [address]Performed By: #### 22907-9, 51501-7, 2776-04 ####[facility] LABCLIA [id number] [address] [place] [address] [place] AMERICAChloride [Moles/Vol]103 mmol/XVfrbua16-013 [facility] on above:Order Comment: Specimen Type: BLOOD SPECIMENOrdering Facility: [facility] Address:[address] [place], [place] [address]Performed By: #### 81996-4, , 2776-04 ####[facility] LABCLIA [id number] [address] [place] AMERICACO2 [Moles/Vol]23 mmol/XAcbiff37-36TrcwaogtkTriHealth McCullough-[facility] on above:Order Comment: Specimen Type: BLOOD SPECIMENOrdering Facility: [facility] Address:[address] [place], [place] [address]Performed By: #### 44739-6, , 2776-04 ####[facility] LABCLIA [id number] [address] [place] AMERICACreatinine [Mass/Vol]0.64 mg/dLLow0.73-1.22 [facility] on above:Order Comment: Specimen Type: BLOOD SPECIMENOrdering Facility: [facility] Address:[address] [place], [place] [address]Performed By: #### 47755-4, 90392-9, 2776-04 ####[facility] LABIA [id number] [address] [address] [place] AMERICAeGFRcr SerPlBld CKD-EPI 1294282 mL/min/1.73m??? Normal>=60[facility] on above:Order Comment: Specimen Type: BLOOD SPECIMENOrdering Facility: [facility] Address:[address] [place], [place] [address]Kbdznp Comment: Estimated Glomerular Filtration Rate (eGFR) is calculated using the 2020 CKD-EPI creatinine equation. This equation utilizes serum creatinine, sex, and age as parameters. The creatinine assay has traceable calibration to isotope dilution-mass spectrometry. Refer to KDIGO guidelines for clinical interpretation. In patients with unstable renal function, e.g. those with acute kidney injury, the eGFR may not accurately reflect actual GFR.Performed By: #### 89148-5, , 2776-04 ####[facility] LABCLIA [id number] [address] [place] AMERICAGlucose [Mass/Vol]137 mg/mZElbw62-43TmawdnhkbTriHealth McCullough-Hyde [facility] on above:Order Comment: Specimen Type: BLOOD SPECIMENOrdering Facility: [facility] Address:[address] [place] [address]Sldybk Comment: The [place] Diabetes [employer] (ADA) provides guidance for cutoff [...] unequivocal hyperglycemia, results should be confirmed by repeattesting. In a patient with classic symptoms of hyperglycemia or hyperglycemic crisis, random plasmaglucose results greater than or equal to 200 mg/dL meet the criteria for diagnosis of diabetes.Reference: Standards of Medical Care in Diabetes 2016, [employer] [place] [employer]. Diabetes Care. 2016.39(Suppl 1).Performed By: #### 80270- 8, , 2776-04 ####[facility] LABIA [id number] [address] [place] AMERICAPotassium [Moles/Vol] 3.6 mmol/LLow3.7-5.1CFostoria City Hospital on above:Order Comment: Specimen Type: BLOOD SPECIMENOrdering Facility: [facility] Address:[address] [place] [address]Performed By: #### 80320-4, 54079-8, 2777-1 ####[facility] LABIA [id number] [address] [place] AMERICAProtein [Mass/Vol]4.9 g/dLLow 6.3-8.0[facility] on above:Order Comment: Specimen Type: BLOOD SPECIMENOrdering Facility: [facility] Address:[address] [place], [place] [address]Performed By: #### 39638-9, 44857-4, 2777- ####[facility] LABIA [id number] VIL[place] [address] [place] AMERICASodium [Moles/Vol]137 mmol/L Acdqlg445-158RxfvukvspTriHealth McCullough-Hy[facility] on above:Order Comment: Specimen Type: BLOOD SPECIMENOrdering Facility: [facility] Address:[address] [place], [place] [address]Performed By: #### 51129-1, 84574-4, 2777- ####[facility] LABNORTHWESTERN [facility] [id number] VILLE [address] [place] AMERICAUrea nitrogen [Mass/Vol]17 mg/dL Normal9-24[facility] on above:Order Comment: Specimen Type: BLOOD SPECIMENOrdering Facility: [facility] Address:[address] [place], [place] [address]Performed By: #### 93997-6, 57800-1, 2777- ####[facility] LABNORTHWESTERN MEDICAL CENTER [id number] [address] [place] AMERICAMagnesium SerPl-mCncon 01-04-2025 Magnesium [Mass/Vol]1.8 mg/dLNormal1.7-2.3CFostoria City Hospital on above:Order Comment: Specimen Type: BLOOD SPECIMENOrdering Facility: [facility] Address:[address] [place], [place] [address]Performed By: #### 36257-6, 00775-1, 2777-1 ####[facility] [id number] VILLE [address] [place] Phosphate SerPl-[facility] Hospital - Johnstownon 34-92-9294Nviqaqhsq [Mass/Vol]3.8 mg/dLNormal2.7-4.8 [facility] on above:Order Comment: Specimen Type: BLOOD SPECIMENOrdering Facility: [facility] Address:[address] [place] [address]Khxzgsdcb By: #### 90897-3, 26804-0, 2777-1 ####[facility] [id number] VILLE [address] [facility]–TUSKEGEETacrolimus Bld-[facility] 82-51-1657Bczwwbxkue (Bld) [Mass/Vol]7.3 ng/mLNormal5.0-20.0[facility] on above: Order Comment: Specimen Type: BLOOD SPECIMENOrdering Facility: [facility] Address:[address] [place], [place] [id number] Comment: Individualized target levels for a given [...] situation. Test performed by chemiluminescent immunoassay using [employer] i.Performed By: #### 15162-2 ####[facility] [id number] [place] [id number] [place] OF AMERICACASE MANAGEMon [id number] MANAGEMNormalWhite Hospital W Auto Differential panel (Bld)on [id number] (Bld) [#/Vol] 0.11 10*3/uLHigh<0.11CFostoria City Hospital on above:Order Comment: Specimen Type: BLOOD SPECIMENOrdering Facility: [facility] Address:[address] [place], [place] [address]Performed By: #### 68551-6 ####[facility] LABCLIA [id number] [place] [address] [place] AMERICABasophils/100 WBC (Bld)0.9 % NormalTriHealth [facility]ull[facility] on above:Order Comment: Specimen Type: BLOOD SPECIMENOrdering Facility: [facility] Address:[address] [place], [place] [address]Performed By: #### 89062-2 ####[facility] [facility] LABCLIA [id number] [place] [address] [place] AMERICAEosinophils (Bld) [#/Vol]0.00 10*3/uLNormal<0.46[facility] on above:Order Comment: Specimen Type: BLOOD SPECIMENOrdering Facility: [facility] Address:[address] [place], [place] [address]Performed By: #### 39420-2 ####[facility] LABCLIA [id number] [place] [address] [place] AMERICAEosinophils/100 WBC (Bld)0.0 %NormalTriHealth McCull[facility] on above:Order Comment: Specimen Type: BLOOD SPECIMENOrdering Facility: [facility] Address:[address] [place], [place] [address]Performed By: #### 35150-9 ####[facility] LABCLIA [id number] [place] [address] [place] AMERICAHematocrit (Bld) [Volume fraction]28.9 %Low39.0-51.0[facility] on above: Order Comment: Specimen Type: BLOOD SPECIMENOrdering Facility: [facility] Address:[address] [place], [place] [address]Performed By: #### 72555- 8 ####[facility] LABCLIA [id number] [place] [address] [place] AMERICAHemoglobin (Bld) [Mass/Vol]9.4 g/dLLow13.0-17.0[facility] on above:Order Comment: Specimen Type: BLOOD SPECIMENOrdering Facility: [facility] Address:[address] [place], [place] [address]Performed By: #### 89714-8 ####[facility] LABIA [id number] [place] [address] [place] [facility]OSPITALLymphocytes (Bld) [#/Vol]1.03 10*3/uLNormal1.00-4.00[facility] on above:Order Comment: Specimen Type: BLOOD SPECIMENOrdering Facility: [facility] Address:[address] [place], [place] [address]Performed By: #### 94769-6 ####[facility] [id number] [place] [address] [place] [facility] HOSPITALLymphocytes/100 WBC (Bld)8.7 % NormalTriHealth [facility]ull[facility] on above:Order Comment: Specimen Type: BLOOD SPECIMENOrdering Facility: [facility] Address:[address] [place], [place] [address]Performed By: #### 19453-2 ####[facility] [id number] [place] [address] [place] AMERICAMCH (RBC) [Entitic mass]30.9 auDgwpuv58.0-34.0[facility] on above:Order Comment: Specimen Type: BLOOD SPECIMENOrdering Facility: [facility] Address:[address] [place], [place] [address]Performed By: #### 53126-8 ####[facility] LABIA [id number] [place] [address] [place] MCV (RBC) [Entitic vol]95.1 hFRypziu94.0-100.0[facility] on above:Order Comment: Specimen Type: BLOOD SPECIMENOrdering Facility: [facility] Address:[address] [place] [address] Performed By: #### 95045-2 ####[facility] LABCLIA [id number] [place] [address] [place] Metamyelocytes/100 WBC (Bld)7.8 %NormalTriHealth [facility]ull[facility] on above:Order Comment: Specimen Type: BLOOD SPECIMENOrdering Facility: [facility] Address:[address] [place], [place] [address]Performed By: #### 90610-5 ####[facility] LABIA [id number] [place] [address] [place] AMERICAMonocytes (Bld) [#/Vol]0.92 10*3/uLHigh<0.87[facility] on above:Order Comment: Specimen Type: BLOOD SPECIMENOrdering Facility: [facility] Address:[address] [place], [place] [address]Performed By: #### 40467- 8 ####[facility] LABCLIA [id number] [place] [address] [place] AMERICAMonocytes/100 WBC (Bld)7.8 % NormalTriHealth [facility]ull[facility] on above:Order Comment: Specimen Type: BLOOD SPECIMENOrdering Facility: [facility] Address:[address] [place], [place] [address]Performed By: #### 99836-3 ####[facility] LABIA [id number] [place] [address] [place] AMERICANeutrophils (Bld) [#/Vol]8.34 10*3/uLHigh1.45-7.50[facility] on above:Order Comment: Specimen Type: BLOOD SPECIMENOrdering Facility: [facility] Address:[address] [place], [place] [address]Performed By: #### 13094-8 ####[facility] LABCLIA [id number] [address] [place] [address] [place] [facility] RE[facility]ILITATION CENTEReutrophils/100 WBC (Bld)70.5 %NormalTriHealth [facility]ull[facility] on above:Order Comment: Specimen Type: BLOOD SPECIMENOrdering Facility: [facility] Address:[address] [place] [address] Performed By: #### 16024-0 ####[facility] LABCLIA [id number] [address], [facility]95 [place] Nucleated RBC (Bld) [#/Vol]10*3/uLNormal<0.01[facility] on above:Order Comment: Specimen Type: BLOOD SPECIMENOrdering Facility: [facility] Address:[address] [place] [address] Performed By: #### 83795-2 ####[facility] LABIA [id number] [place] [address] [place] Platelets (Bld) [#/Vol]257 10*3/dOVsvcvj047-856NdhkwtsvbTriHealth [facility]ull[facility] on above:Order Comment: Specimen Type: BLOOD SPECIMENOrdering Facility: [facility] Address:[address] [place] [address] Performed By: #### 14736-5 ####[facility] LABIA [id number] [address], [place] [address] [place] RBC (Bld) [#/Vol]3.04 10*6/uLLow4.20-6.00[facility] on above:Order Comment: Specimen Type: BLOOD SPECIMENOrdering Facility: [facility] Address:[address] [place], [place] [address]Performed By: #### 70212-0 ####[facility] LABCLIA [id number] [address], [facility]95 [place] AMERICACRP SerPl-mCncon 87-59-0851IIC [Mass/Vol]26.9 mg/dLHigh<0.9CFostoria City Hospital on above:Order Comment: Specimen Type: BLOOD SPECIMENOrdering Facility: [facility] Address:[address] [place], [place] [address]Performed By: #### 89165-0, 76560-6, 2776-04, 1987-08, ####[facility] LABCLIA [id number] [place] [address] [place] AMERICAComprehensive metabolic 2000 panelon 02-54-0598Qiwhxku [Mass/Vol]2.5 g/dLLow3.9-4.9ClevelPremier Health Miami [facility] on above:Order Comment: Specimen Type: BLOOD SPECIMENOrdering Facility: [facility] Address:[address] [place], [place] [address]Performed By: #### 34381-9, 14494-1, 2776-04, 1987-08, ####[facility] LABCLIA [id number] [place] [address] [place] AMERICAALP [Catalytic activity/Vol]252 U/TPfou34-220OegtwqkuiTriHealth [facility]ull[facility] on above:Order Comment: Specimen Type: BLOOD SPECIMENOrdering Facility: [facility] Address:[address] [place], [place] [address]Performed By: #### 35085- 8, 73088-8, 2776-04, 1987-08, ####[facility] LABCLIA [id number] [place] [address] [place] ALT [Catalytic activity/Vol]32 U/HPiquoo42-57SifjzdadhTriHealth McCullough-[facility] on above:Order Comment: Specimen Type: BLOOD SPECIMENOrdering Facility: [facility] Address:[address] [place] [address] Performed By: #### 88432-6, 24876-2, 2776-04, 1987-08, ####[facility] LABCLIA [id number] [address] [address] [place] AMERICAAnion gap [Moles/Vol]10 mmol/LNormal8-15[facility] on above:Order Comment: Specimen Type: BLOOD SPECIMENOrdering Facility: [facility] Address:[address] [place], [place] [address]Performed By: #### 58845-6, 19864-7, 2776-04, 1987-08, ####[facility] LABIA [id number] [place] [address] [place] AMERICAAST [Catalytic activity/Vol]41 U/ZIqrh21-57DkdvslchlTriHealth [facility]ull[facility] on above:Order Comment: Specimen Type: BLOOD SPECIMENOrdering Facility: [facility] Address:[address] [place], [place] [address]Performed By: #### 56486-2, 44896-3, 2776-04, 1987-08, ####[facility]ITALIA [id number] [address] [address] [place] AMERICABilirubin [Mass/Vol] 0.3 mg/dLNormal0.2-1.3ClevelPremier Health Miami [facility] Hospital on above:Order Comment: Specimen Type: BLOOD SPECIMENOrdering Facility: [facility] Address:[address] [place], [place] [address]Performed By: #### 68721-6, 02303-1, 2776-04, 1987-08, ####[facility] LABIA [id number] [address] [address] [place] AMERICACalcium [Mass/Vol]8.4 mg/dLLow8.5-10.2ClevelPremier Health Miami [facility] on above:Order Comment: Specimen Type: BLOOD SPECIMENOrdering Facility: [facility] Address:[address] [place], [place] [address]Performed By: #### 16785- 8, 26560-1, 2776-04, 1987-08, ####[facility] LABIA [id number] [address] [address] [place] Chloride [Moles/Vol]102 mmol/LFdyqbd85-188IiydnwkrzOur Lady Of Mercy Hospital - AndersonComment on above:Order Comment: Specimen Type: BLOOD SPECIMENOrdering Facility: [facility] Address:[address] [place], [place] [address]Performed By: #### 20825-2, 88785-1, 2776-04, 1987-08, ####[facility] LABIA [id number] [address] [address] [place] AMERICACO2 [Moles/Vol]27 mmol/LZpjidl81-33WnbcdxxteOur Lady Of Mercy Hospital - AndersonComeaton rapids medical [facility] on above:Order Comment: Specimen Type: BLOOD SPECIMENOrdering Facility: [facility] Address:[address] [place], [place] [address]Performed By: #### 21282-1, 46965-1, 2776-04, 1987-08, ####[facility] [id number] [address] [address] [place] AMERICACreatinine [Mass/Vol]0.67 mg/dLLow0.73-1.22[facility] Comment on above:Order Comment: Specimen Type: BLOOD SPECIMENOrdering Facility: [facility] Address:[address] [place], [place] [address] Performed By: #### 05046-4, 41211-2, 2776-04, 1987-08, ####[facility]ITALIA [id number] [address] [address] [place] AMERICAGlucose [Mass/Vol]122 mg/kFKdpv08-25GddomkhynTriHealth McCullough-[facility] on above:Order Comment: Specimen Type: BLOOD SPECIMENOrdering Facility: [facility] Address:[address] [place], [place] [address]Result Comment: The [place] [employer] (ADA) provides guidance for cutoff [...] unequivocal hyperglycemia, results should be confirmed by repeattesting. In a patient with classic symptoms of hyperglycemia or hyperglycemic crisis, random plasmaglucose results greater than or equal to 200 mg/dL meet the criteria for diagnosis of diabetes.Reference: Standards of Medical Care in Diabetes 2016, [employer] [place] [employer]. Diabetes Care. 2016.39(Suppl 1).Performed By: #### 17114- 8, 04953-7, 2776-04, 1987-08, ####[facility] LABIA [id number] [place] [address] [place] Potassium [Moles/Vol]4.2 mmol/LNormal3.7-5.1CWestern Reserve HospitalComment on above:Order Comment: Specimen Type: BLOOD SPECIMENOrdering Facility: [facility] Address:[address] [place], [place] [address]Performed By: #### 52157-1, 67248-8, 2776-04, 1987-08, ####[facility] [id number] [place] [address] [place] AMERICAProtein [Mass/Vol]5.3 g/dLLow6.3-8.0[facility] - AndersonComment on above:Order Comment: Specimen Type: BLOOD SPECIMENOrdering Facility: [facility] Address:[address] [place], [place] [address]Performed By: #### 12013-1, 45902-6, 2776-04, 1987-08, ####[facility] [id number] [place] [address] [place] AMERICASodium [Moles/Vol]139 mmol/MVcffwk527-283VjvflrloaOur Lady Of Mercy Hospital - Anderson Comment on above:Order Comment: Specimen Type: BLOOD SPECIMENOrdering Facility: [facility] Address:[address] [place] [address] Performed By: #### 06606-5, 86784-2, 2776-04, 1987-08, ####[facility] LABCLIA [id number] [place] [address] [place] AMERICAUrea nitrogen [Mass/Vol]19 mg/dLNormal9-24 [facility] on above:Order Comment: Specimen Type: BLOOD SPECIMENOrdering Facility: [facility] Address:[address] [place], [place] [address]Performed By: #### 39365-1, 55876-7, 2776-04, 1987-08, ####[facility] LABIA [id number] [place] [address] [place] AMERICAMagnesium SerPl-mCncon 01-03-2025 Magnesium [Mass/Vol]1.8 mg/dLNormal1.7-2.3CFostoria City Hospital on above:Order Comment: Specimen Type: BLOOD SPECIMENOrdering Facility: [facility] Address:[address] [place], [place] [address]Performed By: #### 69626-2 ####[facility] LABIA [id number] [place] [address] [place] AMERICAMagnesium [Mass/Vol] 1.5 mg/dLLow1.7-2.3CFostoria City Hospital on above:Order Comment: Specimen Type: BLOOD SPECIMENOrdering Facility: [facility] Address:[address] [place], [place] [address]Performed By: #### 95515-3, 77426-4, 2776-04, 1987-08, 59476-0 ####[facility] LABIA [id number] [place] [address] [place] AMERICAPhosphate SerPl-mCncon 44-48-3810Uvwmkjrvu [Mass/Vol]3.5 mg/dLNormal2.7-4.8CWestern Reserve HospitalComment on above:Order Comment: Specimen Type: BLOOD SPECIMENOrdering Facility: [facility] Address:[address] [place], [place] [address]Performed By: #### 57241-5, 45780-7, 2777-1, 1988-5, 33817-0 ####[facility] LABCLIA [id number] [place] [address] [facility] CATHOLIC HEALTHTacrolimus Bld-mCncon 01-03-2025 Tacrolimus (Bld) [Mass/Vol]6.4 ng/mLNormal5.0-20.0[facility] Comment on above:Order Comment: Specimen Type: BLOOD SPECIMENOrdering Facility: [facility] Address:[address] [place], [place] [address]Result Comment: Individualized target levels for a given [...] performed by chemiluminescent immunoassay using [employer] i.Performed By: #### 96152-7 ####[facility] LABCLIA [id number] [place] [address] [facility] OF AMERICAECHFreeman Health System 01-02-2025 Echocardiography Report: Transthoracic Echo [facility] Bedside 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 LOYD BLANDON : 1955 Age: 69 years Gender: M History of hypertension and chronic kidney disease. Previous cardiovascular interventions: Liver transplant Primary rhythm: sinus. Secondary rhythm: PAC. Height: 175.30 cm BSA: 1.94 m??? Weight: 77.30 kg BMI: 25.2 kg/m??? Heart rate 85 bpm Blood pressure 154/90 mmHg Technically difficult exam due to suboptimal positioning. Color Doppler was utilized to interrogate the cardiac valves assessed and spectral Doppler was utilized to determine the flow velocities and pressure gradients reported in this exam. MEASUREMENTS: Value Indexed Normal LV ID (diastole) 5.2 cm (2D) 2.67 cm/m??? LV ID (systole) 2.6 cm (2D) 1.33 cm/m??? IVS, leaflet tips 1.4 cm (2D) Posterior wall thickness 0.7 cm (2D) Left ventricular mass 211 g (2D) 109 g/m??? LV stroke volume 55 ml (2D biplane) LV end diastolic volume 85 ml (2D biplane) 44.0 ml/m??? 34<=EDVi<75 LV end systolic volume 30 ml (2D biplane) 15.6 ml/m??? Ejection Fraction 64 % (2D biplane) EF > 52 FINDINGS: LEFT VENTRICLE The left ventricle is normal in size. There is upper septal left ventricular hypertrophy. Left ventricular systolic function is normal. Left ventricular diastolic function was not evaluated due to limited. Wall Motion: All scored segments are normal. RIGHT VENTRICLE The right ventricle is normal in size. Right ventricular systolic function is normal. Estimated right ventricular systolic pressure is not reported due to an insufficient tricuspid regurgitation signal. Estimated right atrial pressure is 8 mmHg based on IVC assessment. RIGHT ATRIUM Inferior Vena Cava: The inferior vena cava appears normal measuring 1.20 cm. The vessel decreases less than 50 percent with inspiration. MITRAL VALVE There is trace mitral valve regurgitation. There is mild thickening. The pressure half time is 60 msec. The peak mitral E/A ratio is 1.01. The mitral flow deceleration time is 208 msec. TRICUSPID VALVE There is trace tricuspid valve regurgitation. There is no thickening. AORTIC VALVE There is no aortic valve regurgitation. Tricuspid aortic valve. There is mild thickening. There is mild calcification of the non coronary aortic cusp. The peak gradient is 10 mmHg (peak velocity = 159.4 cm/s). PULMONIC VALVE The pulmonic valve was not seen or not interrogated. There is trace pulmonic valve regurgitation. PERICARDIUM There is no pericardial effusion. CONCLUSIONS: - Technically difficult exam due to suboptimal positioning. - Exam indication: Evaluation of known heart failure to guide therapy - The left ventricle is normal in size. There is upper septal left ventricular hypertrophy. Left ventricular systolic function is normal. EF = 64 ??? 5% (2D biplane) - The right ventricle is normal in size. Right ventricular systolic function is normal. - There are no significant valvular abnormalities. - Exam was compared with the prior [facility] echocardiographic exam performed on 12/18/2024. No significant change. 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 LOYD BLANDON : 1955 Age: 69 years Gender: M History of hypertension and chronic kidney disease. Previous cardiovascular interventions: Liver transplant Primary rhythm: sinus. Secondary rhythm: PAC. Height: 175.30 cm BSA: 1.94 m??? Weight: 77.30 kg BMI: 25.2 kg/m??? Heart rate 85 bpm Blood pressure 154/90 mmHg Technically difficult exam due to suboptimal positioning. Color Doppler was utilized to interrogate the cardiac valves assessed and spectral Doppler was utilized to determine the flow velocities and pressure gradients reported in this exam. MEASUREMENTS: Value Indexed Normal LV ID (diastole) 5.2 cm (2D) 2.67 cm/m??? LV ID (systole) 2.6 cm (2D) 1.33 cm/m??? IVS, leaflet tips 1.4 cm (2D) Posterior wall thickness 0.7 cm (2D) Left ventricular mass 211 g (2D) 109 g/m??? LV stroke volume 55 ml (2D biplane) LV end diastolic volume 85 ml (2D biplane) 44.0 ml/m??? 34<=EDVi<75 LV end systolic volume 30 ml (2D biplane) 15.6 ml/m??? Ejection Fraction 64 % (2D biplane) EF > 52 FINDINGS: LEFT VENTRICLE The left ventricle is normal in size. There is upper septal left ventricular hypertrophy. Left ventricular systolic function is normal. Left ventricular diastolic function was not evaluated due to limited. Wall Motion: All scored segments are normal. RIGHT VENTRICLE The right ventricle is normal in size. Right ventricular systolic function is normal. Estimated right ventricular systolic pressure is not reported due to an insufficient tricuspid regurgitation signal. Estimated right atrial pressure is 8 mmHg based on IVC assessment. RIGHT ATRIUM Inferior Vena Cava: The inferior vena cava appears normal measuring 1.20 cm. The vessel decreases less than 50 percent with inspiration. MITRAL VALVE There is trace mitral valve regurgitation. There is mild thickening. The pressure half time is 60 msec. The peak mitral E/A ratio is 1.01. The mitral flow deceleration time is 208 msec. TRICUSPID VALVE There is trace tricuspid valve regurgitation. There is no thickening. AORTIC VALVE There is no aortic valve regurgitation. Tricuspid aortic valve. There is mild thickening. There is mild calcification of the non coronary aortic cusp. The peak gradient is 10 mmHg (peak velocity = 159.4 cm/s). PULMONIC VALVE The pulmonic valve was not seen or not interrogated. There is trace pulmonic valve regurgitation. PERICARDIUM There is no pericardial effusion. CONCLUSIONS: - Technically difficult exam due to suboptimal positioning. - Exam indication: Evaluation of known heart failure to guide therapy - The left ventricle is normal in size. There is upper septal left ventricular hypertrophy. Left ventricular systolic function is normal. EF = 64 ??? 5% (2D biplane) - The right ventricle is normal in size. Right ventricular systolic function is normal. - There are no significant valvular abnormalities. - Exam was compared with the prior [facility] echocardiographic exam performed on 12/18/2024. No significant change. * * * Final * * * [employer] : [id number]^[employer]^SI^CELESTE ID [facility] Specialty HospitalRadiology Study observation (narrative)NOMS HealthcareECHOOrdered By: Radiologist Radiology on [id number] Healthcare Work Phone: No Panel Informationon [id number] BACTERIA BLD CULT CULTURE, BLOOD: No growth 5 days NOM HealthcareOriginal Ordering Provider: [facility]AMMYBay[facility] [facility] BACTERIA FLD CULTon [id number] BACTERIA FLD CULT CULTURE, BODY FLD: No growth NOMS HealthcareCCF BACTERIA FLD CULT GRAM STAIN: No organisms seen NOMS HealthcareCC BACTERIA FLD CULTNo Polymorphonuclear LeukocytesNOMS HealthcareCCF BACTERIA FLD CULTRare Mononuclear cellsNOMS HealthcareCCF BACTERIA FLD CULTFew Red Blood CellsNOMS HealthcareCC BACTERIA FLD CULTGram stain performed on cytospun specimen.[facility] BACTERIA FLD CULTGram stain from primary specimenSelect Specialty HospitalOriginal Ordering Provider: OTTO GALLEGOS [facility] CYTOLOGY NON-GYNon [id number] DISCLAIMERNOMS HealthcareComment on above:Laboratory Developed Test (LDT) Disclaimer: Performance characteristics of immunohistochemical, immunofluorescent, and chromogenic in-situ hybridization tests have been determined by the performing laboratory within the [facility] Department of Pathology and Laboratory Medicine ([facility], [facility], [facility], [facility], [facility], [facility], or [facility]) in a manner consistent with CLIA requirements. One or more of these tests may not have been cleared or approved by the FDA. The [facility] Department of Pathology and Laboratory Medicineis regulated under CLIA as qualified to perform high-complexity testing. These tests are used for clinical purposes. These should not be regarded as investigational or for research. Positive and negative controls stain appropriately. [facility] CASE REPORTNOMS HealthcareComment on above:Medical Cytology Report Case: [id number] Authorizing Provider: Burton Quezada MD Collected: 12/23/2024 11:44 AM Ordering Location: [place] [address] Received: 12/23/2024 06:15 PM Pathologist: eBlén Green MD Specimen: Peritoneal Cavity [facility] CLINICAL HISTORYNOMS HealthcareComment on above:Pre-op diagnosis: Abdominal fluid collection [R18.8] [facility] FINAL DIAGNOSISNOMS HealthcareComment on above:A. Peritoneal Cavity, Fluid: Negative for malignant cells. Chronic inflammation. The following cell blocks were associated with this case: A1 Cell Block, Alcohol Fixed at 1601 EDT [facility] FINAL PERFORMING LABNOIL HealthcareComment on above:Technical component, set painter screening performed at: [facility], [address] [place] [address] CLIA: [id number] Diagnostic interpretation performed at: [facility], [address] [place] [address] CLIA# [id number] Route Driver: Emmett New MD [facility] GROSS DESCRIPTIONNOMS HealthcareComment on above:A. Peritoneal Cavity 30 cc cloudy light yellow fluid . ThinPrep and Cell Block prepared. [facility] ORDER COMMENTNOIL HealthcareComment on above:Pre-op diagnosis: Abdominal fluid collection [R18.8] Specimen Type: SPECIMEN OBTAINED BY ASPIRATION Ordering Facility: [facility] Address: [address] [place] [address] Original Ordering Provider: BURTON BOYER HealthcareCCF BACTERIA SPEC RESP CULTon [id number] BACTERIA SPEC RESP CULTORGANISM ID: 1AbnormalNOFreeman Health SystemF BACTERIA SPEC RESP CULTFew normal respiratory floraNOFreeman Health SystemF BACTERIA SPEC RESP CULT GRAM STAIN: No organisms seen AbnormalNOJefferson Memorial HospitalCCF BACTERIA SPEC RESP CULTRare Polymorphonuclear leukocytesAbnormalNOMS HealthcareInterpretation and review of laboratory results AbnormalNOMS HealthcareOriginal Ordering Provider: OTTO RUIZMercy hospital springfieldF BACTERIA BLD CULTon [id number] BACTERIA BLD CULTORGANISM ID: 1 AbnormalNOIL HealthcareF BACTERIA BLD CULTEnterococcus faecalisNOCox MonettF BACTERIA BLD CULTRefer to specimen collected on 12/14/24 at 1430 ([id number])NOM HealthcareCCF BACTERIA BLD CULTNOIL HealthcareCCF BACTERIA BLD CULTCephalosporins, clindamycin, and TMP-SMX are not effective for the treatment of enterococcal infections.NOMS [facility] HospitalF BACTERIA BLD CULT GRAM STAIN: Gram positive cocci in pairs and chains AbnormalNOMS HealthcareInterpretation and review of laboratory resultsAbnormal [facility] HealthcareOriginal Ordering Provider: GAY HICKEY HealthcareCCF BACTERIA BLD CULTORGANISM ID: 1AbnormalNOMS HealthcareCCF BACTERIA BLD CULTEnterococcus faecalisNOMS HealthcareCCF BACTERIA BLD CULTRefer to specimen collected on 12/14/24 at 1430 ([id number])NOMS HealthcareCCF BACTERIA BLD CULTNOMS HealthcareCCF BACTERIA BLD CULTCephalosporins, clindamycin, and TMP-SMX are not effective for the treatment of enterococcal infections.NOMS HealthcareCCF BACTERIA BLD CULT GRAM STAIN: Gram positive cocci in pairs and chains AbnormalNOMS HealthcareInterpretation and review of laboratory resultsAbnormal [facility] HealthcareOriginal Ordering Provider: GAY HICKEY HealthcareCCF BACTERIA FLD CULTon [id number] BACTERIA FLD CULT CULTURE, BODY FLD: No growth NOMS HealthcareCCF BACTERIA FLD CULT GRAM STAIN: No organisms seen NOMS HealthcareCCF BACTERIA FLD CULTFew Polymorphonuclear leukocytesNOMS HealthcareCCF BACTERIA FLD CULTGram stain performed on cytospun specimen.NOMS HealthcareCCF BACTERIA FLD CULTGram stain from primary specimenCASTLEVIEW HOSPITAL HealthcareOriginal Ordering Provider: GAY HICKEY HealthcareCCF RESP PATH 12B PNL SPEC JESSICA+PROBEon [id number] RESP PATH 12B PNL SPEC JESSICA+PROBE INFLUENZA A RNA: Not detected NOMS HealthcareCCF RESP PATH 12B PNL SPEC JESSICA+PROBE INFLUENZA B RNA: Not detected NOMS HealthcareCCF RESP PATH 12B PNL SPEC JESSICA+PROBE RESPIRATORY SYNCYTIAL VIRUS (RSV) RNA: Not detected NOMS HealthcareCCF RESP PATH 12B PNL SPEC JESSICA+PROBE HUMAN METAPNEUMOVIRUS (HMPV) RNA: Not detected NOMS HealthcareCCF RESP PATH 12B PNL SPEC JESSICA+PROBE HUMAN RHINOVIRUS/ENTEROVIRUS RNA: Not detected NOMS HealthcareCCF RESP PATH 12B PNL SPEC JESSICA+PROBE ADENOVIRUS DNA: Not detected NOMS HealthcareCCF RESP PATH 12B PNL SPEC JESSICA+PROBE PARAINFLUENZA 1 RNA: Not detected NOMS HealthcareCCF RESP PATH 12B PNL SPEC JESSICA+PROBE PARAINFLUENZA 2 RNA: Not detected NOMS HealthcareCCF RESP PATH 12B PNL SPEC JESSICA+PROBE PARAINFLUENZA 3 RNA: Not detected NOMS HealthcareCCF RESP PATH 12B PNL SPEC JESSICA+PROBE PARAINFLUENZA 4 RNA: Not detected NOMS HealthcareCCF RESP PATH 12B PNL SPEC JESSICA+PROBE CORONAVIRUS 229E RNA: Not detected NOMS HealthcareCCF RESP PATH 12B PNL SPEC JESSICA+PROBE CORONAVIRUS OC43 RNA: Not detected NOMS HealthcareCCF RESP PATH 12B PNL SPEC JESSICA+PROBE CORONAVIRUS NL63 RNA: Not detected NOMS HealthcareCCF RESP PATH 12B PNL SPEC JESSICA+PROBE CORONAVIRUS HKU1 RNA: Not detected NOMS HealthcareCCF RESP PATH 12B PNL SPEC JESSICA+PROBE CHLAMYDIA PNEUMONIAE DNA: Not detected NOMS HealthcareCCF RESP PATH 12B PNL SPEC JESSICA+PROBE MYCOPLASMA PNEUMONIAE DNA: Not detected NOMS HealthcareCCF RESP PATH 12B PNL SPEC JESSICA+PROBE BORDETELLA PERTUSSIS DNA: Not detected NOMS HealthcareCCF RESP PATH 12B PNL SPEC JESSICA+PROBE BORDETELLA PARAPERTUSSIS DNA: Not detected NOMS BwmpkttgwjXNXI-NxA-5 (COVID-19) RNA JESSICA+probe Ql (Unsp spec) SARS-COV-2 (AGENT OF COVID-19) RNA: Not detected NOMS HealthcareOriginal Ordering Provider: GEORGI CHAVEZ [facility] ECG 12 leadon [id number] Rate : 88 BPM Atrial Rate : 88 BPM P-R Interval : 134 ms QRS Duration : 80 ms Q-T Interval : 386 ms QTC Calculation(Bazett) : 467 ms Calculated P Webb : 21 degrees Calculated R Webb : 26 degrees Calculated T Webb : 25 degrees NORMAL SINUS RHYTHM LOW VOLTAGE QRS, CONSIDER PULMONARY DISEASE, PERICARDIAL EFFUSION, OR NORMAL VARIANT BORDERLINE ECG Confirmed by ABENA URENA MD ([id number]) on 12/06/2024 1:51:49 PM NAME : LOYD BLANDON PID : [id number] : 1955 Gender : Male Race : ORD : [id number] Procedure Date : Oct 14 2024 12:20:29 Edit Date : Dec 06 2024 13:51:53 Diagnosis: NORMAL SINUS RHYTHM LOW VOLTAGE QRS, CONSIDER PULMONARY DISEASE, PERICARDIAL EFFUSION, OR NORMAL VARIANT BORDERLINE ECG Confirmed by ABENA URENA MD ([id number]) on 12/06/2024 1:51:49 PM Test Reason : Chest Pain Location : 97 : G90 G90-24 Overread By : ABENA URENA MD Edited By : ABENA URENA MD Referred By : CANDIDA DIAS Acquired by : SHUN ROSAFRadiology, Radiologist, - 12/06/2024 Ventricular Rate : 88 BPM Atrial Rate : 88 BPM P-R Interval : 134 ms QRS Duration : 80 ms Q-T Interval : 386 ms QTC Calculation(Bazett) : 467 ms Calculated P Webb : 21 degrees Calculated R Webb : 26 degrees Calculated T Webb : 25 degrees NORMAL SINUS RHYTHM LOW VOLTAGE QRS, CONSIDER PULMONARY DISEASE, PERICARDIAL EFFUSION, OR NORMAL VARIANT BORDERLINE ECG Confirmed by ABENA URENA MD ([id number]) on 12/06/2024 1:51:49 PM NAME : LOYD BLANDON PID : [id number] : 1955 Gender : Male Race : ORD : [id number] Procedure Date : Oct 14 2024 12:20:29 Edit Date : Dec 06 2024 13:51:53 Diagnosis: NORMAL SINUS RHYTHM LOW VOLTAGE QRS, CONSIDER PULMONARY DISEASE, PERICARDIAL EFFUSION, OR NORMAL VARIANT BORDERLINE ECG Confirmed by ABENA URENA MD ([id number]) on 12/06/2024 1:51:49 PM Test Reason : Chest Pain Location : 97 : G90 G90-24 Overread By : ABENA URENA MD Edited By : ABENA URENA MD Referred By : CANDIDA DISA Acquired by : SHUN ROSA [facility] HealthcareECG 12 leadOrdered By: Radiologist Radiology on [id number] Healthcare Work Phone: ECG 12 leadon [id number] Rate : 76 BPM Atrial Rate : 76 BPM P-R Interval : 138 ms QRS Duration : 84 ms Q-T Interval : 404 ms QTC Calculation(Bazett) : 454 ms Calculated P Webb : 37 degrees Calculated R Webb : 53 degrees Calculated T Webb : 41 degrees SINUS RHYTHM WITH OCCASIONAL PREMATURE VENTRICULAR COMPLEXES OTHERWISE NORMAL ECG Confirmed by MD CHARLIE, HEBA ([id number]) on 12/02/2024 1:58:43 PM NAME : LOYD BLANDON PID : [id number] : 1955 Gender : Male Race : ORD : [id number] Procedure Date : Oct 14 2024 20:58:05 Edit Date : Dec 02 2024 13:58:51 Diagnosis: SINUS RHYTHM WITH OCCASIONAL PREMATURE VENTRICULAR COMPLEXES OTHERWISE NORMAL ECG Confirmed by MD GUERRA HEBA ([id number]) on 12/02/2024 1:58:43 PM Test Reason : Chest Pain Location : 97 : G90 G090-24 Overread By : MD GUERRA HEBA Edited By : MD GUERRA HEBA Referred By : CANDIDA DIAS Acquired by : JONO RICHFRadiology, RadiologistMD - 12/02/2024 Ventricular Rate : 76 BPM Atrial Rate : 76 BPM P-R Interval : 138 ms QRS Duration : 84 ms Q-T Interval : 404 ms QTC Calculation(Bazett) : 454 ms Calculated P Webb : 37 degrees Calculated R Webb : 53 degrees Calculated T Webb : 41 degrees SINUS RHYTHM WITH OCCASIONAL PREMATURE VENTRICULAR COMPLEXES OTHERWISE NORMAL ECG Confirmed by MD GUERRA HEBA ([id number]) on 12/02/2024 1:58:43 PM NAME : LOYD BLANDON PID : [id number] : 1955 Gender : Male Race : ORD : [id number] Procedure Date : Oct 14 2024 20:58:05 Edit Date : Dec 02 2024 13:58:51 Diagnosis: SINUS RHYTHM WITH OCCASIONAL PREMATURE VENTRICULAR COMPLEXES OTHERWISE NORMAL ECG Confirmed by MD GUERRA HEBA ([id number]) on 12/02/2024 1:58:43 PM Test Reason : Chest Pain Location : 97 : G90 G090-24 Overread By : MD GUERRA HEBA Edited By : MD GUERRA HEBA Referred By : CANDIDA DIAS Acquired by : PARAMJIT RICH [facility] 12 leadOrdered By: Radiologist Radiology on [id number] [facility] Work Phone: cCF BACTERIA WND CULTon [id number] BACTERIA WND CULT CULTURE, WOUND: No growth NOMS HealthcareCCF BACTERIA WND CULT GRAM STAIN: No organisms seen NOMS HealthcareCC BACTERIA WND CULTRare Polymorphonuclear leukocytesNOMS HealthcareOriginal Ordering Provider: MIGUEL CORRAL HealthcareNo Panel Informationon [id number] BACTERIA BLD CULT CULTURE, BLOOD: No growth 5 days NOMS HealthcareOriginal Ordering Provider: XUAN CURRAN [facility] HealthECG 12 leadon 13-88-0656Ljmztmnnnds Rate : 74 BPM Atrial Rate : 74 BPM P-R Interval : 130 ms QRS Duration : 76 ms Q-T Interval : 386 ms QTC Calculation(Bazett) : 428 ms Calculated P Webb : 22 degrees Calculated R Webb : 27 degrees Calculated T Webb : 18 degrees NORMAL SINUS RHYTHM LOW VOLTAGE QRS, CONSIDER PULMONARY DISEASE, PERICARDIAL EFFUSION, OR NORMAL VARIANT BORDERLINE ECG Confirmed by IGNACIO PARDO MD ([id number]) on 11/22/2024 1:57:41 PM NAME : LOYD BLANDON PID : [id number] : 1955 Gender : Male Race : ORD : [id number] Procedure Date : Sep 28 2024 11:33:58 Edit Date : Nov 22 2024 13:57:46 Diagnosis: NORMAL SINUS RHYTHM LOW VOLTAGE QRS, CONSIDER PULMONARY DISEASE, PERICARDIAL EFFUSION, OR NORMAL VARIANT BORDERLINE ECG Confirmed by IGNACIO PARDO MD ([id number]) on 11/22/2024 1:57:41 PM Test Reason : TREMORS, BP Location : 86 : [facility] G101-18 Overread By : IGNACIO PARDO MD Edited By : IGNACIO PARDO MD Referred By : , Acquired by : RACHEL PEREZCCFRadiology, Radiologist, - 11/22/2024 Ventricular Rate : 74 BPM Atrial Rate : 74 BPM P-R Interval : 130 ms QRS Duration : 76 ms Q-T Interval : 386 ms QTC Calculation(Bazett) : 428 ms Calculated P Webb : 22 degrees Calculated R Webb : 27 degrees Calculated T Webb : 18 degrees NORMAL SINUS RHYTHM LOW VOLTAGE QRS, CONSIDER PULMONARY DISEASE, PERICARDIAL EFFUSION, OR NORMAL VARIANT BORDERLINE ECG Confirmed by IGNACIO PARDO MD ([id number]) on 11/22/2024 1:57:41 PM NAME : LOYD BLANDON PID : [id number] : 1955 Gender : Male Race : ORD : [id number] Procedure Date : Sep 28 2024 11:33:58 Edit Date : Nov 22 2024 13:57:46 Diagnosis: NORMAL SINUS RHYTHM LOW VOLTAGE QRS, CONSIDER PULMONARY DISEASE, PERICARDIAL EFFUSION, OR NORMAL VARIANT BORDERLINE ECG Confirmed by IGNACIO PARDO MD ([id number]) on 11/22/2024 1:57:41 PM Test Reason : TREMORS, BP Location : 86 : G101 G101-18 Overread By : IGNACIO PARDO MD Edited By : IGNACIO PARDO MD Referred By : , Acquired by : RACHEL PEREZLee's Summit Hospital 12 leadOrdered By: Radiologist Radiology on 23-13-2787CTFDSelect Specialty Hospital Work Phone: Urine Cultureon [id number] identified Cx Nom (U)No Growth 2 Days PERFORMED BY: [place] [address] PATHOLOGIST INSURANCE PROCESSOR CANDE CUNNINGHAM M.D.NormalHca Florida Trinity Hospital Physician GroupComment on above: Performed By: #### CUU #### [address] Auto Differential panel (Bld)Ordered By: Letitia Conway on 85-19-1016Tswusffaaafg Ql (Bld)PresentCleveland ClinicBasophils (Bld) [#/Vol]0.12 10*3/uLHighNINFParkwood HospitalBasophils/100 WBC (Bld)5 % Parkwood HospitalDifferential cell count method Nom (Bld)ManualClewilson health Clinic Eosinophils (Bld) [#/Vol]0.07 10*3/uLNINFAmarillo ClinicEosinophils/100 WBC (Bld)3 %Parkwood HospitalErythrocyte distribution width (RBC) [Ratio]19.2 %High 11.5 - 15.0 %Barth ClinicHematocrit (Bld) [Volume fraction]25.4 %Low39.0 - 51.0 %Barth ClinicHemoglobin (Bld) [Mass/Vol]7.8 g/dLLow13.0 - 17.0 g/dL Park[facility] HospitalInterpretation and review of laboratory resultsAbnormalCleveland ClinicLymphocytes (Bld) [#/Vol]0.42 10*3/uLLowParkwood HospitalLymphocytes/100 WBC (Bld)17 %[facility] CenterH (RBC) [Entitic mass]30.4 pg26.0 - 34.0 pg [facility] CenterHC (RBC) [Mass/Vol]30.7 g/dL30.5 - 36.0 g/dLParkwood Hospital MCV (RBC) [Entitic vol]98.8 fL80.0 - 100.0 fLCleveland ClinicMeta %5 %Amarillo ClinicMonocytes (Bld) [#/Vol]0.05 10*3/uLNINFParkwood HospitalMonocytes/100 WBC (Bld)2 %Parkwood HospitalMyelo %2 %Parkwood HospitalNeutrophils (Bld) [#/Vol]1.62 10*3/uLParkwood HospitalNeutrophils/100 WBC (Bld)66 %Parkwood HospitalNucleated RBC (Bld) [#/Vol]0.02 10*3/uLHighNINFParkwood HospitalNucleated RBC/100 WBC (Bld) [Ratio]1 %/100 WBCParkwood HospitalOvalocytes LM Ql (Bld)FewParkwood Hospital Platelet mean volume (Bld) [Entitic vol]9 fL9.0 - 12.7 fLCGeorgetown Behavioral Hospital Platelets (Bld) [#/Vol]583 10*3/uLHighParkwood HospitalPlatelets Estimate (Bld) [#/Vol]IncreasedParkwood HospitalPolychromasia LM Ql (Bld)SlightParkwood Hospital RBC (Bld) [#/Vol]2.57 10*6/uLLow4.20 - 6.00 m/[facility] HospitalRed Cell Morph Reviewed: see results of individual morphologiesParkwood HospitalWBC (Bld) [#/Vol]2.45 10*3/uLLowParkwood HospitalWBC Left Shift Ql (Bld)PresentParkwood HospitalThis is an appended report. These results have been appended to a previously verified report.[facility] HospitalCCF COMP METAB 2000 PNL SERPLon [id number] AST SERPL-CCNC20 U/L14 - 40 U/LNOMS [facility] BILIRUB SERPL-MCNC0.2 mg/dL0.2 - 1.3 mg/dLFreeman Cancer Institute PROT SERPL-MCNC5.5 g/dLLow6.3 - 8.0 g/dLSelect Specialty HospitalEGFRCR SERPLBLD CKD-EPI [id number]- PINFNOJefferson Memorial HospitalComment on above:Estimated Glomerular Filtration Rate (eGFR) is calculated using the 2020 CKD-EPI creatinine equation. This equation utilizes serum creatinine, sex, and age as parameters. The creatinine assay has traceable calibration to isotope dilution-mass spectrometry. Refer to KDIGO guidelines for clinical interpretation. In patients with unstable renal function, e.g. those with acute kidney injury, the eGFRmay not accurately reflect actual GFR. Specimen Type: BLOOD SPECIMEN Ordering Facility: [facility] Address: [address] [place] [address] Original Ordering Provider: SUZE RENAE PHOSPHATE SERPL-MCNCon [id number] PHOSPHATE SERPL-MCNC4.7 mg/dL2.7 - 4.8 mg/dLSelect Specialty Hospital Comprehensive metabolic 2000 panelon 29-23-5380XHS [Catalytic activity/Vol]20 U/L14 - 40 U/LCleveland ClinicBilirubin [Mass/Vol]0.2 mg/dL0.2 - 1.3 mg/dL Parkwood HospitalGFR/1.73 sq M.predicted among non-blacks MDRD (S/P/Bld) [Vol rate/Area]49 mL/min/{1.73_m2}Low- PINFCleveland ClinicComment on above:Estimated Glomerular Filtration Rate (eGFR) is calculated using the 2020 CKD-EPI creatinine equation. This equation utilizes serum creatinine, sex, and age as parameters. The creatinine assay has traceable calibration to isotope dilution- mass spectrometry. Refer to KDIGO guidelines for clinical interpretation. In patients with unstable renal function, e.g. those with acute kidney injury, the eGFRmay not accurately reflect actual GFR.Protein [Mass/Vol]5.5 g/dLLow6.3 - 8.0 g/dLCleveland ClinicLaboratory - Chemistry and Chemistry - challengeon 61-38-8200Psyjtmi [Mass/Vol]2.9 g/dLLow3.9 - 4.9 g/dLNOMS HealthcareALP [Catalytic activity/Vol]143 U/LHigh38 - 113 U/LNOMS HealthcareALT [Catalytic activity/Vol]11 U/L10 - 54 U/LNOMS HealthcareAnion gap [Moles/Vol]12 mmol/L8 - 15 mmol/LNOMS HealthcareCalcium [Mass/Vol]8.6 mg/dL8.5 - 10.2 mg/dLNOMS HealthcareChloride [Moles/Vol]101 mmol/L98 - 107 mmol/LNOMS HealthcareCO2 [Moles/Vol]22 mmol/L22 - 30 mmol/LNOMS HealthcareCreatinine [Mass/Vol]1.52 mg/dL High0.73 - 1.22 mg/dLNOMS HealthcareGlucose [Mass/Vol]88 mg/dL74 - 99 mg/dLNOIL HealthcareComment on above:The [place] [employer] (ADA) provides guidance for cutoff values for fasting glucose andrandom glucose. The ADA defines fasting as no caloric intake for at least 8 hours. Fasting plasma gl ucose results between 100 to 125 mg/dL indicate [...] Standards of Medical Care in Diabetes 2016, [employer] [place] [employer]. Diabetes Care. 2016.39(Suppl 1). Magnesium [Mass/Vol]2.1 mg/dL1.7 - 2.3 mg/dLNOIL HealthcarePotassium [Moles/Vol] 5.1 mmol/L3.7 - 5.1 mmol/LNOMS HealthcareSodium [Moles/Vol]135 mmol/WPjz244 - 144 mmol/LNOMS HealthcareUrea nitrogen [Mass/Vol]17 mg/dL9 - 24 mg/dLNOIL HealthcareNo Panel Informationon 73-75-5591Dvjfvvzjtxntqo and review of laboratory resultsAbnormalNOMS HealthcareInterpretation and review of laboratory resultsNormalCleveland ClinicNOMS HealthcareSpecimen Type: BLOOD SPECIMEN Ordering Facility: [facility] Address: [address] [place] [address] Original Ordering Provider: CAMILA GOMESYNCPATHOLOGIST INTERPRETATION CBC AND DIFFERENTIAL (LAB REFLEX ORDER-NO BILL)on 11-61-4925Kzxijaqsguvz review Arthur (Unsp spec) [Interp]Reviewed by Marito Mak, [facility] Pathologist Interpretation, CBCDIFNormocytic anemia with slight polychromasia Leukopenia with absolute lymphopenia Thrombocytosis [facility] HospitalPHOSPHORUS INORGANICon 29-86-5713Riybaxpxk [Mass/Vol]4.7 mg/dL2.7 - 4.8 mg/dLShelby Memorial HospitalTAFF REVIEWon 11-15-2024 ReviewedZW,[facility] Medical CenterC-REACTIVE PROTEINon 40-55-6213CNB [Mass/Vol]20.7 mg/dLHighNINF - 0.9 mg/dLThe University of Toledo Medical CenterC W Auto Differential panel (Bld)on 38-17-3120Zicjehosm (Bld) [#/Vol]0.06 10*3/uLNINFParkwood Hospital Basophils/100 WBC (Bld)2.3 %Park[facility] HospitalDifferential cell count method Nom (Bld)AutoClevelOhioHealth Shelby HospitalEosinophils (Bld) [#/Vol]NINFCGeorgetown Behavioral Hospital Eosinophils/100 WBC (Bld)0.4 %Parkwood HospitalErythrocyte distribution width (RBC) [Ratio]19.1 %High11.5 - 15.0 %Parkwood HospitalHematocrit (Bld) [Volume fraction]23.9 %Low39.0 - 51.0 %Parkwood HospitalHemoglobin (Bld) [Mass/Vol]7.2 g/dLLow13.0 - 17.0 g/dLParkwood HospitalImmature granulocytes (Bld) [#/Vol]0.11 10*3/uLHighNINFParkwood HospitalImmature granulocytes/100 WBC (Bld)4.2 %[facility] HospitalInterpretation and review of laboratory resultsAbnormBlanchard Valley Health System [facility] Lymphocytes (Bld) [#/Vol]0.41 10*3/uLLowParkwood HospitalLymphocytes/100 WBC (Bld)15.8 %[facility] CenterH (RBC) [Entitic mass]30 pg26.0 - 34.0 pgClevelLakeview HospitalHC (RBC) [Mass/Vol]30.1 g/dLLow30.5 - 36.0 g/dLUniversity Hospitals TriPoint Medical CenterV (RBC) [Entitic vol]99.6 fL80.0 - 100.0 fLCohiohealth pickerington [facility]ist hospital ClinicMonocytes (Bld) [#/Vol]0.08 10*3/uLNIAvita Health SystemMonocytes/100 WBC (Bld)3.1 %[facility] Neutrophils (Bld) [#/Vol]1.92 10*3/uLParkwood HospitalNeutrophils/100 WBC (Bld) 74.2 %[facility]wood HospitalNucleated RBC (Bld) [#/Vol]0.03 10*3/uLHighNIAvita Health SystemNucleated RBC/100 WBC (Bld) [Ratio]1.2 %/100 WBCParkwood HospitalPlatelet mean volume (Bld) [Entitic vol]9.1 fL9.0 - 12.7 fLCohiohealth pickerington methodist hospital ClinicPlatelets (Bld) [#/Vol]507 10*3/uLHighParkwood HospitalRBC (Bld) [#/Vol]2.4 10*6/uLLow4.20 - 6.00 m/[facility] HospitalWBC (Bld) [#/Vol]2.59 10*3/uLCoshocton Regional Medical CenterCCF PHOSPHATE SERPL-MCNCon 31-49-6848BWS PHOSPHATE SERPL-MCNC4.9 mg/dLHigh2.7 - 4.8 mg/dLNOIL HealthcareSpecimen Type: BLOOD SPECIMEN Ordering Facility: [facility] Address: [address] [place] [address] Original Ordering Provider: DAVID MYERSISYNCComprehensive metabolic 2000 panelon 28-77-9536Obupxxd [Mass/Vol]2.8 g/dLLow3.9 - 4.9 g/dLAmarillo ClinicALP [Catalytic activity/Vol]136 U/LHigh38 - 113 U/LCleveland ClinicALT [Catalytic activity/Vol]12 U/L10 - 54 U/LCleveland ClinicAnion gap [Moles/Vol]10 mmol/L8 - 15 mmol/LCleveland ClinicAST [Catalytic activity/Vol]25 U/L14 - 40 U/LCleveland ClinicBilirubin [Mass/Vol]0.2 mg/dL0.2 - 1.3 mg/dLCleveland ClinicCalcium [Mass/Vol]8.6 mg/dL8.5 - 10.2 mg/dLAmarillo ClinicChloride [Moles/Vol]102 mmol/L98 - 107 mmol/LCleveland ClinicCO2 [Moles/Vol]22 mmol/L22 - 30 mmol/L [place] ClinicCreatinine [Mass/Vol]1.4 mg/dLHigh0.73 - 1.22 mg/dLClewilson health ClinicGFR/1.73 sq M.predicted among non-blacks MDRD (S/P/Bld) [Vol rate/Area]54 mL/min/{1.73_m2}Low- PINFCleveland ClinicComment on above:Estimated Glomerular Filtration Rate (eGFR) is calculated using the 2020 CKD-EPI creatinine equation. This equation utilizes serum creatinine, sex, and age as parameters. The creatinine assay has traceable calibration to isotope dilution-mass spectrometry. Refer to KDIGO guidelines for clinical interpretation. In patients with unstable renal function, e.g. those with acute kidney injury, the eGFRmay not accurately reflect actual GFR.Glucose [Mass/Vol]113 mg/lMXbgb97 - 99 mg/dL Parkwood HospitalComment on above:The [place] Diabetes [employer] (ADA) provides guidance for cutoff values for fasting glucose andrandom glucose. The ADA defines fasting as no caloric intake for at least 8 hours. Fasting plasma gl ucose results between 100 to 125 mg/dL indicate [...] Standards of Medical Care in Diabetes 2016, [place] [employer]. Diabetes Care. 2016.39(Suppl 1). Potassium [Moles/Vol]5.9 mmol/LHigh3.7 - 5.1 mmol/LCleveland ClinicProtein [Mass/Vol]5.7 g/dLLow6.3 - 8.0 g/dLShelby Memorial Hospitalodium [Moles/Vol]134 mmol/L Gqv844 - 144 mmol/LCleveland ClinicUrea nitrogen [Mass/Vol]20 mg/dL9 - 24 mg/dL Park[facility] HospitalGGTon 77-91-7851Bchxl glutamyl transferase [Catalytic activity/Vol]70 U/L10 - 70 U/LCleveland ClinicGamma glutamyl transferase [Catalytic activity/Vol]on 32-99-8196Skbwhejttqjwci and review of laboratory resultsNormalCleveland [facility] ClinicMAGNESIUMon 69-39-7807Aljncebjf [Mass/Vol]2.1 mg/dL1.7 - 2.3 mg/dLParkwood HospitalMagnesium [Mass/Vol]on 64-00-9134Pskcgpenwdmpym and review of laboratory resultsNoBlanchard Valley Health System NT PRO BNPon 31-83-9513Jzugrvvffwj peptide.B prohormone N-Terminal [Mass/Vol]543 pg/mLHighNINF - 125 pg/mLClevelOhioHealth Shelby HospitalNatriuretic peptide.B prohormone N- Terminal [Mass/Vol]on 42-31-8673Ymkjczqgkaadlj and review of laboratory results AbnormalMercy Health Kings Mills HospitalNo Panel Informationon 11-14-2024 Interpretation and review of laboratory resultsAbnormalCCleveland Clinic Euclid HospitalInterpretation and review of laboratory resultsAbScheurer HospitalS HealthcarePHOSPHORUS INORGANICon 55-18-5121Nkqiddqiz [Mass/Vol]4.9 mg/dL High2.7 - 4.8 mg/dLParkwood HospitalTACROLIMUS/FK-506 BLon 22-24-4879Wxubzrekaz (Bld) [Mass/Vol]10.2 ng/mL5.0 - 20.0 ng/mLCleveland ClinicComment on above: Individualized target levels for a given patient will depend on many factors (including the type oforgan transplant, time since transplantation, concurrent medications, and other clinical factors), and should be assessed by those health care providers experienced in the management of immunosuppression. Reference ranges and high/low indicator flags are provided as general guidelines only. The treating physician must determine appropriate target levels/dosing based on the specific clinical situation. 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 Refer to note in patient chart for documentation of history and physical. Referring Physician: Nick Cameron (Referring MD) Medicines: General Anesthesia, Cipro 400 [...] administered by the anesthesia team. 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 Surgical [...] 3 months. Procedure Code(s): --- Professional --- 51184, Endoscopic retrograde cholangiopancreatography (ERCP); with removal of calculi/debris from biliary/pancreatic duct(s) 85957, Endoscopic catheterization of the biliary ductal system, radiological supervision and interpretation Diagnosis Code(s): --- Professional --- Z96.89, Presence of other specified functional implants K80.51, Calculus of bile duct without cholangitis or cholecystitis with obstruction Z09, Encounter for follow-up examination after completed treatment for conditions other than malignant neoplasm Z94.4, Liver transplant status CPT copyright 2020 [employer]. All rights reserved. Attending Participation: I was present and participated during the entire procedure, including non-david portions. Scope In: 2:57:12 PM Scope Out: 3:17:12 PM MD Jane Alexander MD 11/13/2024 3:25:50 PM This report has been signed electronically by Jane Correia MD Number of Addenda: 0 Note Initiated On: 11/13/2024 1:11 PM NOMS HealthcareERCPOrdered By: Radiologist Radiology on [id number] Work Phone: ERCP Study observation Narrativeon [id number] ClinicNo Panel Informationon [id number] Study observation (narrative) NOM HealthcareC-REACTIVE PROTEINon [id number] [Mass/Vol]16.9 mg/dLHighNINF - 0.9 mg/dLThe University of Toledo Medical CenterC W Auto Differential panel (Bld)on 11-11-2024 Anisocytosis Ql (Bld)PresentCleBerger HospitalBasophils (Bld) [#/Vol]0.13 10*3/uL HighNINFParkwood HospitalBasophils/100 WBC (Bld)4 %Parkwood HospitalDifferential cell count method Nom (Bld)ManualCleBerger HospitalEosinophils (Bld) [#/Vol]0.1 10*3/uLNINFParkwood HospitalEosinophils/100 WBC (Bld)3 %[facility] Erythrocyte distribution width (RBC) [Ratio]18.6 %High11.5 - 15.0 %Parkwood HospitalHematocrit (Bld) [Volume fraction]25.6 %Low39.0 - 51.0 %[facility] Hemoglobin (Bld) [Mass/Vol]8 g/dLLow13.0 - 17.0 g/dLParkwood Hospital Interpretation and review of laboratory resultsAbnormalCGeorgetown Behavioral Hospital Lymphocytes (Bld) [#/Vol]0.23 10*3/uLLowParkwood HospitalLymphocytes/100 WBC (Bld)7 %[facility] HospitalMCH (RBC) [Entitic mass]30.8 pg26.0 - 34.0 pgClevelLakeview HospitalHC (RBC) [Mass/Vol]31.3 g/dL30.5 - 36.0 g/dLUniversity Hospitals TriPoint Medical CenterV (RBC) [Entitic vol]98.5 fL80.0 - 100.0 fLCleveland Westbrook Medical CenterMeta %3 %[facility] Monocytes (Bld) [#/Vol]0.1 10*3/uLNINFParkwood HospitalMonocytes/100 WBC (Bld)3 % [facility] HospitalNeutrophils (Bld) [#/Vol]2.58 10*3/uLParkwood Hospital Neutrophils/100 WBC (Bld)80 %[facility] HospitalNucleated RBC (Bld) [#/Vol]NINF [facility] HospitalNucleated RBC/100 WBC (Bld) [Ratio]0 %/100 WBCParkwood Hospital Ovalocytes LM Ql (Bld)FewParkwood HospitalPlatelet mean volume (Bld) [Entitic vol]9 fL9.0 - 12.7 fLCleveland ClinicPlatelets (Bld) [#/Vol]561 10*3/uLHigh Parkwood HospitalPlatelets Estimate (Bld) [#/Vol]IncreasedParkwood Hospital Polychromasia LM Ql (Bld)SlightParkwood HospitalRBC (Bld) [#/Vol]2.6 10*6/uLLow 4.20 - 6.00 m/uLParkwood HospitalRed Cell MorphReviewed: see results of individual morphologiesParkwood HospitalWBC (Bld) [#/Vol]3.22 10*3/uLLowParkwood HospitalWBC Left Shift Ql (Bld)PresentParkwood HospitalThis is an appended report. These results have been appended to a previously verified report.[facility] NT-PROBNP SERPL-NCon [id number] peptide B (Bld) [Mass/Vol]453 pg/mLHighNINF - 125 pg/mLNOMS HealthcareSpecimen Type: BLOOD SPECIMEN Ordering Facility: [facility] Address: [address] [place] [address] Original Ordering Provider: DAVID BRAVOCYTOMEGALOVIRUS (CMV) DNA, QUANTITATIVE PCR, PLASMAon [id number] DNA JESSICA+probe Qn (P)Not detectedNot DetectedParkwood HospitalInterpretation and review of laboratory resultsNormal [facility] CMV is an in vitro nucleic acid amplification test for the quantitation of cytomegalovirus (CMV) DNA in human EDTA plasma. The linear range of the assay is 34.5 to 10,000,000 IU/mL (1.54 - 7.00log IU/mL). The lower limit of detection of the assay is 34.5 IU/mL.[facility] Comprehensive metabolic 2000 panelon 21-18-8005Evzsxjh [Mass/Vol]3 g/dLLow3.9 - 4.9 g/dLAmarillo ClinicALP [Catalytic activity/Vol]151 U/LHigh38 - 113 U/L [facility] ClinicALT [Catalytic activity/Vol]11 U/L10 - 54 U/LCleveland Clinic Anion gap [Moles/Vol]12 mmol/L8 - 15 mmol/LCleveland ClinicAST [Catalytic activity/Vol]19 U/L14 - 40 U/LCleveland ClinicBilirubin [Mass/Vol]0.3 mg/dL0.2 - 1.3 mg/dLAmarillo ClinicCalcium [Mass/Vol]8.8 mg/dL8.5 - 10.2 mg/dLAmarillo ClinicChloride [Moles/Vol]100 mmol/L98 - 107 mmol/LCleveland ClinicCO2 [Moles/Vol]24 mmol/L22 - 30 mmol/LCleveland ClinicCreatinine [Mass/Vol]1.52 mg/dLHigh0.73 - 1.22 mg/dLAmarillo ClinicGFR/1.73 sq M.predicted among non- blacks MDRD (S/P/Bld) [Vol rate/Area]49 mL/min/{1.73_m2}Low- PINFCleveland ClinicComment on above:Estimated Glomerular Filtration Rate (eGFR) is calculated using the 2020 CKD-EPI creatinine equation. This equation utilizes serum creatinine, sex, and age as parameters. The creatinine assay has traceable calibration to isotope dilution-mass spectrometry. Refer to KDIGO guidelines for clinical interpretation. In patients with unstable renal function, e.g. those with acute kidney injury, the eGFRmay not accurately reflect actual GFR.Glucose [Mass/Vol]90 mg/dL74 - 99 mg/dLParkwood HospitalComment on above:The [employer] (ADA) provides guidance for cutoff values for fasting glucose andrandom glucose. The ADA defines fasting as no [...] Standards of Medical Care in Diabetes 2016, [employer]. Diabetes Care. 2016.39(Suppl 1). Potassium [Moles/Vol]5 mmol/L3.7 - 5.1 mmol/LCleveland ClinicProtein [Mass/Vol] 5.8 g/dLLow6.3 - 8.0 g/dLAmarillo ClinicSodium [Moles/Vol]136 mmol/L136 - 144 mmol/LCleveland ClinicUrea nitrogen [Mass/Vol]18 mg/dL9 - 24 mg/dLParkwood HospitalGGTon 96-79-7009Villr glutamyl transferase [Catalytic activity/Vol]93 U/L High10 - 70 U/LCleveland Westbrook Medical CenterGamma glutamyl transferase [Catalytic activity/Vol]on 27-05-5338Kiyrvfgwesxxxb and review of laboratory results AbnormalMercy Health Kings Mills HospitalMAGNESIUMon 48-21-3974Ozvgaiepf [Mass/Vol]2.2 mg/dL1.7 - 2.3 mg/dLParkwood HospitalMagnesium [Mass/Vol]on 02-13-6511Fpqbsonrgeqqdx and review of laboratory resultsNormalCGeorgetown Behavioral Hospital NT PRO BNPon 57-93-6614Oolxjdtvzns peptide.B prohormone N-Terminal [Mass/Vol]453 pg/mLHighNINF - 125 pg/mLCleveland Westbrook Medical CenterNo Panel Informationon 11-11-2024 Parkwood HospitalInterpretation and review of laboratory resultsAbnormalCleveland ClinicInterpretation and review of laboratory resultsAbnormPenn State Health Rehabilitation Hospital NOMS HealthcarePHOSPHORUS INORGANICon 20-17-0686Umwbhijmn [Mass/Vol]3.9 mg/dL2.7 - 4.8 mg/dLParkwood HospitalPhosphate [Mass/Vol]on 56-57-5218Jnnmmffmvzgioq and review of laboratory resultsNormalCdetwiler memorial hospitaland Adams County HospitalTACROLIMUS/FK- 506 BLOrdered By: Brayan Malloy on 72-19-2562Slmvneljvm (Bld) [Mass/Vol]11.5 ng/mL5.0 - 20.0 ng/mLCleveland ClinicComment on above:Individualized target levels for a given patient will [...] performed by chemiluminescent immunoassay using Lakhani Alinity i.Tacrolimus (Bld) [Mass/Vol]Ordered By: Brayan Malloy on 11-11-2024 Interpretation and review of laboratory resultsNormalCleveland [facility] metabolic 2000 panelon 70-68-0161GOL/1.73 sq M.predicted among non- blacks MDRD (S/P/Bld) [Vol rate/Area]48 mL/min/{1.73_m2}Low- PINFClevelOhioHealth Shelby HospitalComment on above:Estimated Glomerular Filtration Rate (eGFR) is calculated using the 2020 CKD-EPI creatinine equation. This equation utilizes serum creatinine, sex, and age as parameters. The creatinine assay has traceable calibration to isotope dilution-mass spectrometry. Refer to KDIGO guidelines for clinical interpretation. In patients with unstable renal function, e.g. those with acute kidney injury, the eGFRmay not accurately reflect actual GFR.CCF BAS METAB 1999 PNL SERPLon 55-20-9338CTZVBE SERPLBLD CKD-EPI 218431Xpt- PINFSelect Specialty HospitalComment on above:Estimated Glomerular Filtration Rate (eGFR) is calculated using the 2020 CKD-EPI creatinine equation. This equation utilizes serum creatinine, sex, and age as parameters. The creatinine assay has traceable calibration to isotope dilution-mass spectrometry. Refer to KDIGO guidelines for clinical interpretation. In patients with unstable renal function, e.g. those with acute kidney injury, the eGFRmay not accurately reflect actual GFR.Specimen Type: BLOOD SPECIMEN Ordering Facility: [facility] Address: [address] [place] [address] Original Ordering Provider: KELL KHANISYGARRICKCCF PHOSPHATE SERPL-MCNCon [id number] PHOSPHATE SERPL-MCNC4.4 mg/dL2.7 - 4.8 mg/dLSelect Specialty Hospital Laboratory - Chemistry and Chemistry - challengeon [id number] [Mass/Vol] 3.4 g/dLLow3.9 - 4.9 g/dLNOIL HealthcareAnion gap [Moles/Vol]11 mmol/L8 - 15 mmol/LNOMS HealthcareCalcium [Mass/Vol]9 mg/dL8.5 - 10.2 mg/dLNOJefferson Memorial Hospital Chloride [Moles/Vol]97 mmol/LLow98 - 107 mmol/LNOMS HealthcareCO2 [Moles/Vol]27 mmol/L22 - 30 mmol/LNOMS HealthcareCreatinine [Mass/Vol]1.55 mg/dLHigh0.73 - 1.22 mg/dLNOIL HealthcareGlucose [Mass/Vol]92 mg/dL74 - 99 mg/dLNOJefferson Memorial Hospital Comment on above:The [employer] (ADA) provides guidance for cutoff values for fasting glucose andrandom glucose. The ADA defines fasting as no [...] Standards of Medical Care in Diabetes 2016, [employer]. Diabetes Care. 2016.39(Suppl 1). Magnesium [Mass/Vol]2.1 mg/dL1.7 - 2.3 mg/dLNOIL HealthcarePotassium [Moles/Vol] 4.6 mmol/L3.7 - 5.1 mmol/LNOMS HealthcareSodium [Moles/Vol]135 mmol/CMbq138 - 144 mmol/LNOMS HealthcareUrea nitrogen [Mass/Vol]17 mg/dL9 - 24 mg/dLNOJefferson Memorial HospitalNo Panel Informationon 56-86-8035Wasrwkjqphnjie and review of laboratory resultsAbnormalNOIL HealthcareInterpretation and review of laboratory resultsNormalCleveland ClinicSpecimen Type: BLOOD SPECIMEN Ordering Facility: [facility] Address: [address] [place] [address] Original Ordering Provider: CAMILA FERNANDEZ Wilson HealthPHOSPHORUS INORGANICon [id number] [Mass/Vol]4.4 mg/dL2.7 - 4.8 mg/dLSCCI Hospital Lima-REACTIVE PROTEINon 30-27-3221SGA [Mass/Vol]17.2 mg/dLHighNINF - 0.9 mg/dLSumma Health Barber[facility] Campus W Auto Differential panel (Bld)on 11-07-2024 Anisocytosis Ql (Bld)PresentCleBerger HospitalBasophils (Bld) [#/Vol]0.09 10*3/uL NINFCleveland ClinicBasophils/100 WBC (Bld)3 %[facility] HospitalDifferential cell count method Nom (Bld)ManualCleBerger HospitalEosinophils (Bld) [#/Vol]0.03 10*3/uLNINFParkwood HospitalEosinophils/100 WBC (Bld)1 %[facility] Erythrocyte distribution width (RBC) [Ratio]17.9 %High11.5 - 15.0 %Parkwood HospitalHematocrit (Bld) [Volume fraction]23.7 %Low39.0 - 51.0 %[facility] Hemoglobin (Bld) [Mass/Vol]7.5 g/dLLow13.0 - 17.0 g/dLParkwood Hospital Interpretation and review of laboratory resultsAbnormalCGeorgetown Behavioral Hospital Lymphocytes (Bld) [#/Vol]0.44 10*3/uLLowParkwood HospitalLymphocytes/100 WBC (Bld)14 %[facility] CenterH (RBC) [Entitic mass]30.2 pg26.0 - 34.0 pgCleveland Westbrook Medical CenterHC (RBC) [Mass/Vol]31.6 g/dL30.5 - 36.0 g/dLUniversity Hospitals TriPoint Medical CenterV (RBC) [Entitic vol]95.6 fL80.0 - 100.0 fLCleveland Westbrook Medical CenterMeta %1 %[facility] Monocytes (Bld) [#/Vol]0.16 10*3/uLNINFParkwood HospitalMonocytes/100 WBC (Bld)5 %[facility] HospitalNeutrophils (Bld) [#/Vol]2.4 10*3/uLParkwood Hospital Neutrophils/100 WBC (Bld)76 %[facility]wood HospitalNucleated RBC (Bld) [#/Vol]NINF [facility] HospitalNucleated RBC/100 WBC (Bld) [Ratio]0 %/100 WBCParkwood Hospital Platelet mean volume (Bld) [Entitic vol]9.3 fL9.0 - 12.7 fLCGeorgetown Behavioral Hospital Platelets (Bld) [#/Vol]580 10*3/uLHighParkwood HospitalPlatelets Estimate (Bld) [#/Vol]IncreasedCleBerger HospitalRBC (Bld) [#/Vol]2.48 10*6/uLLow4.20 - 6.00 m/uL [facility] HospitalRed Cell MorphReviewed: see results of individual morphologies Parkwood HospitalWBC (Bld) [#/Vol]3.16 10*3/uLLowParkwood HospitalWBC Left Shift Ql (Bld)PresentParkwood HospitalThis is an appended report. These results have been appended to a previously verified report.[facility] PHOSPHATE SERPL-MCNCon [id number] PHOSPHATE SERPL-MCNC4.6 mg/dL2.7 - 4.8 mg/dLNOJefferson Memorial HospitalSpecimen Type: BLOOD SPECIMEN Ordering Facility: [facility] Address: [address] [place] [address] Original Ordering Provider: DAVID MYERSISYNCComprehensive metabolic 2000 panelon [id number] [Mass/Vol]3 g/dLLow3.9 - 4.9 g/dLAmarillo ClinicALP [Catalytic activity/Vol]156 U/LHigh38 - 113 U/LCleveland ClinicALT [Catalytic activity/Vol]12 U/L10 - 54 U/LCleveland ClinicAnion gap [Moles/Vol]16 mmol/LHigh 8 - 15 mmol/LCleveland ClinicAST [Catalytic activity/Vol]18 U/L14 - 40 U/L [facility] HospitalBilirubin [Mass/Vol]0.3 mg/dL0.2 - 1.3 mg/dLParkwood Hospital Calcium [Mass/Vol]8.8 mg/dL8.5 - 10.2 mg/dLAmarillo ClinicChloride [Moles/Vol] 96 mmol/LLow98 - 107 mmol/LCleveland ClinicCO2 [Moles/Vol]24 mmol/L22 - 30 mmol/LCleveland ClinicCreatinine [Mass/Vol]1.5 mg/dLHigh0.73 - 1.22 mg/dL [facility] HospitalGFR/1.73 sq M.predicted among non-blacks MDRD (S/P/Bld) [Vol rate/Area]49 mL/min/{1.73_m2}Low- PINFCleveland Westbrook Medical CenterComment on above:Estimated Glomerular Filtration Rate (eGFR) is calculated using the 2020 CKD-EPI creatinine equation. This equation utilizes serum creatinine, sex, and age as parameters. The creatinine assay has traceable calibration to isotope dilution- mass spectrometry. Refer to KDIGO guidelines for clinical interpretation. In patients with unstable renal function, e.g. those with acute kidney injury, the eGFRmay not accurately reflect actual GFR.Glucose [Mass/Vol]77 mg/dL74 - 99 mg/dLParkwood HospitalComment on above:The [employer] (ADA) provides guidance for cutoff values for fasting glucose andrandom glucose. The ADA defines fasting as no caloric intake for at least 8 hours. Fasting plasma gl ucose results between 100 to 125 mg/dL indicate [...] Standards of Medical Care in Diabetes 2016, [employer]. Diabetes Care. 2016.39(Suppl 1). Potassium [Moles/Vol]4.8 mmol/L3.7 - 5.1 mmol/LCleveland ClinicProtein [Mass/Vol]5.4 g/dLLow6.3 - 8.0 g/dLShelby Memorial Hospitalodium [Moles/Vol]136 mmol/L 136 - 144 mmol/LCleveland ClinicUrea nitrogen [Mass/Vol]16 mg/dL9 - 24 mg/dL Parkwood HospitalGGTon 24-66-0951Gtnzp glutamyl transferase [Catalytic activity/Vol]98 U/LHigh10 - 70 U/LCleveland ClinicGamma glutamyl transferase [Catalytic activity/Vol]on 76-12-8304Fadqbzvilfxbkt and review of laboratory resultsAbnormalCleveland Adams County HospitalMAGNESIUMon 39-10-7712Drdgizyjc [Mass/Vol]2 mg/dL1.7 - 2.3 mg/dLParkwood HospitalMagnesium [Mass/Vol]on 48-54-3284Pdnootwctxbwoe and review of laboratory resultsNormalCleveland Clinic NT PRO BNPon 51-10-8075Fgwasatnqgu peptide.B prohormone N-Terminal [Mass/Vol]365 pg/mLHighNINF - 125 pg/mLCleveland Westbrook Medical CenterNatriuretic peptide.B prohormone N- Terminal [Mass/Vol]on 63-76-8985Zlhevzoksfcjfz and review of laboratory results AbnormalCleTriHealth Bethesda North HospitalNo Panel Informationon 11-07-2024 Interpretation and review of laboratory resultsAbnormalCleveland [facility] HealthcarePHOSPHORUS INORGANICon 52-68-3790Iglfbfgog [Mass/Vol]4.6 mg/dL2.7 - 4.8 mg/dLParkwood HospitalPhosphate [Mass/Vol]on 11-07-2024 Interpretation and review of laboratory resultsNormalCGeorgetown Behavioral Hospital TACROLIMUS/FK-506 BLon 93-79-6618Nbzjtmmvks (Bld) [Mass/Vol]8.6 ng/mL5.0 - 20.0 ng/mLCleveland ClinicComment on above:Individualized target levels for a given patient will depend on many factors (including the type oforgan transplant, time since transplantation, concurrent medications, and other clinical factors), and should be assessed by those health care providers experienced in the management of immunosuppression. Reference ranges and high/low indicator flags are provided as general guidelines only. The treating physician must determine appropriate target levels/dosing based on the specific clinical situation. Test performed by chemiluminescent immunoassay using Lakhani Alinity i.Tacrolimus (Bld) [Mass/Vol]on 13-55-9023Qpxdlcxnuhpglr and review of laboratory results NormalAdena Regional Medical Center-REACTIVE PROTEINon 09-94-9711DMS [Mass/Vol]20.3 mg/dLHighNINF - 0.9 mg/dLSumma Health [facility] Campus W Auto Differential panel (Bld)on 93-49-6105Nzqdttafnipj Ql (Bld)PresentParkwood HospitalBasophils (Bld) [#/Vol]0.07 10*3/uLNINFParkwood HospitalBasophils/100 WBC (Bld)2 %[facility] HospitalDifferential cell count method Nom (Bld)ManualCleBerger HospitalEosinophils (Bld) [#/Vol]0.03 10*3/uLNINFParkwood HospitalEosinophils/100 WBC (Bld)1 % Parkwood HospitalErythrocyte distribution width (RBC) [Ratio]17.3 %High11.5 - 15.0 %Parkwood HospitalHematocrit (Bld) [Volume fraction]24.5 %Low39.0 - 51.0 % Parkwood HospitalHemoglobin (Bld) [Mass/Vol]7.6 g/dLLow13.0 - 17.0 g/dLParkwood HospitalInterpretation and review of laboratory resultsAbnormalCGeorgetown Behavioral Hospital Lymphocytes (Bld) [#/Vol]0.5 10*3/uLLowParkwood HospitalLymphocytes/100 WBC (Bld) 15 %[facility] CenterH (RBC) [Entitic mass]29.7 pg26.0 - 34.0 pgClevelLakeview HospitalHC (RBC) [Mass/Vol]31 g/dL30.5 - 36.0 g/dLUniversity Hospitals TriPoint Medical CenterV (RBC) [Entitic vol]95.7 fL80.0 - 100.0 fLCdetwiler memorial hospitaland ClinicMeta %2 %[facility] Monocytes (Bld) [#/Vol]0.23 10*3/uLNIAvita Health SystemMonocytes/100 WBC (Bld)7 %[facility]wood HospitalNeutrophils (Bld) [#/Vol]2.42 10*3/uLParkwood Hospital Neutrophils/100 WBC (Bld)73 %[facility] HospitalNucleated RBC (Bld) [#/Vol]NINF [facility] HospitalNucleated RBC/100 WBC (Bld) [Ratio]0 %/100 WBCParkwood Hospital Ovalocytes LM Ql (Bld)FewParkwood HospitalPlatelet mean volume (Bld) [Entitic vol]8.9 fLLow9.0 - 12.7 fLCleveland ClinicPlatelets (Bld) [#/Vol]554 10*3/uLHigh Parkwood HospitalPlatelets Estimate (Bld) [#/Vol]IncreasedCleBerger HospitalRBC (Bld) [#/Vol]2.56 10*6/uLLow4.20 - 6.00 m/uLParkwood HospitalRed Cell Morph Reviewed: see results of individual morphologiesParkwood HospitalWBC (Bld) [#/Vol]3.31 10*3/uLLowBluffton Hospital Left Shift Ql (Bld)PresentParkwood HospitalThis is an appended report. These results have been appended to a previously verified report.[facility] HospitalCCF BACTERIA SPEC ANAEROBE CULTon [id number] BACTERIA SPEC ANAEROBE CULT CULTURE, ANAEROBE: Negative for anaerobes. NOMS HealthcareOriginal Ordering Provider: ROSALINDA MCKEONSchneck Medical Center [facility] NT-PROBNP SERPL-MCNCon [id number] peptide B (Bld) [Mass/Vol]444 pg/mLHighNINF - 125 pg/mLNOU MEDICAL CENTER – EDMOND HealthcareSpecimen Type: BLOOD SPECIMEN Ordering Facility: [facility] Address: [address] [place] [address] Original Ordering Provider: DAVID BRAVOCREATINE KINASE/CKon [id number] [Catalytic activity/Vol]10 U/LLow51 - 298 U/LCleveland [facility] CYTOMEGALOVIRUS (CMV) DNA, QUANTITATIVE PCR, PLASMAon 60-49-7534XSU DNA JESSICA+probe Qn (P)Not detectedNot DetectedParkwood HospitalInterpretation and review of laboratory resultsNormalCleveland Cliniccobas CMV is an in vitro nucleic acid amplification test for the quantitation of cytomegalovirus (CMV) DNA in human EDTA plasma. The linear range of the assay is 34.5 to 10,000,000 IU/mL (1.54 - 7.00log IU/mL). The lower limit of detection of the assay is 34.5 IU/mL.[facility] HospitalComprehensive metabolic 2000 panelon 38-56-9811Esfhqzt [Mass/Vol]2.6 g/dLLow3.9 - 4.9 g/dLAmarillo ClinicALP [Catalytic activity/Vol]165 U/LHigh38 - 113 U/LCleveland ClinicALT [Catalytic activity/Vol]10 U/L10 - 54 U/LCleveland ClinicAnion gap [Moles/Vol]11 mmol/L8 - 15 mmol/LCleveland ClinicAST [Catalytic activity/Vol]17 U/L14 - 40 U/LCleveland ClinicBilirubin [Mass/Vol]0.3 mg/dL0.2 - 1.3 mg/dLAmarillo ClinicCalcium [Mass/Vol]8.5 mg/dL8.5 - 10.2 mg/dLAmarillo ClinicChloride [Moles/Vol]98 mmol/L 98 - 107 mmol/LCleveland ClinicCO2 [Moles/Vol]25 mmol/L22 - 30 mmol/LCleveland ClinicCreatinine [Mass/Vol]0.99 mg/dL0.73 - 1.22 mg/dLAmarillo ClinicGFR/1.73 sq M.predicted among non-blacks MDRD (S/P/Bld) [Vol rate/Area]81 mL/min/{1.73_m2}- PINFCleveland ClinicComment on above:Estimated Glomerular Filtration Rate (eGFR) is calculated using the 2020 CKD-EPI creatinine equation. This equation utilizes serum creatinine, sex, and age as parameters. The creatinine assay has traceable calibration to isotope dilution-mass spectrometry. Refer to KDIGO guidelines for clinical interpretation. In patients with unstable renal function, e.g. those with acute kidney injury, the eGFRmay not accurately reflect actual GFR.Glucose [Mass/Vol]88 mg/dL74 - 99 mg/dL Parkwood HospitalComment on above:The [employer] (ADA) provides guidance for cutoff values for fasting glucose andrandom glucose. The ADA defines fasting as no caloric intake for at least 8 hours. Fasting plasma gl ucose results between 100 to 125 mg/dL indicate [...] Standards of Medical Care in Diabetes 2016, [employer]. Diabetes Care. 2016.39(Suppl 1). Potassium [Moles/Vol]5 mmol/L3.7 - 5.1 mmol/LCleveland ClinicProtein [Mass/Vol] 5.2 g/dLLow6.3 - 8.0 g/dLAmarillo ClinicSodium [Moles/Vol]134 mmol/AHrb342 - 144 mmol/LCleveland ClinicUrea nitrogen [Mass/Vol]10 mg/dL9 - 24 mg/dLParkwood HospitalGGTon 45-28-9382Eibht glutamyl transferase [Catalytic activity/Vol]114 U/L High10 - 70 U/LCleveland [facility]brook Medical CenterGamma glutamyl transferase [Catalytic activity/Vol]on 58-09-9404Ankostrpxhouyk and review of laboratory results AbnormalHocking Valley Community Hospital ClinicMAGNESIUMon 22-31-5298Drvsnbzyu [Mass/Vol]1.6 mg/dLLow1.7 - 2.3 mg/dLParkwood HospitalNT PRO BNPon 11-04-2024 Natriuretic peptide.B prohormone N-Terminal [Mass/Vol]444 pg/mLHighNINF - 125 pg/mLCleveland Westbrook Medical CenterNo Panel Informationon 48-19-5770Nbejzfqcbqwzwz and review of laboratory resultsAbnormalCleveland Adams County HospitalInterpretation and review of laboratory resultsAbnormalNOMS HealthcareNOMS HealthcarePHOSPHORUS INORGANICon 39-63-5348Hgpmfthyb [Mass/Vol]4.9 mg/dLHigh2.7 - 4.8 mg/dLParkwood HospitalPhosphate [Mass/Vol]on 96-20-9255Xldbjwweqiebae and review of laboratory resultsAbnormalCCleveland Clinic Euclid HospitalTACROLIMUS/FK-506 BLOrdered By: Troy Roman on 37-29-3081Xlnqhrptjw (Bld) [Mass/Vol]13.8 ng/mL5.0 - 20.0 ng/mLCleveland ClinicComment on above:Individualized target levels for a given patient will depend on many factors (including the type oforgan transplant, time since transplantation, concurrent medications, and other clinical factors), and should be assessed by those health care providers experienced in the management of immunosuppression. Reference ranges and high/low indicator flags are provided as general guidelines only. The treating physician must determine appropriate target levels/dosing based on the specific clinical situation. Test performed by chemiluminescent immunoassay using Lakhani Alinity i.Tacrolimus (Bld) [Mass/Vol]Ordered By: Troy Roman on 66-33-1655Zrphattueqfggf and review of laboratory resultsNormalCdetwiler memorial hospitaland Adams County HospitalCB W Auto Differential panel (Bld)on [id number] Ql (Bld)PresentParkwood HospitalBasophils (Bld) [#/Vol]0 10*3/uLNINFParkwood HospitalBasophils/100 WBC (Bld)0 %[facility] HospitalDifferential cell count method Nom (Bld)ManualClewilson health ClinicEosinophils (Bld) [#/Vol]0 10*3/uLNINFParkwood HospitalEosinophils/100 WBC (Bld)0 %[facility] HospitalErythrocyte distribution width (RBC) [Ratio]17.2 %High 11.5 - 15.0 %[facility] HospitalHematocrit (Bld) [Volume fraction]25.9 %Low39.0 - 51.0 %[facility] HospitalHemoglobin (Bld) [Mass/Vol]8.3 g/dLLow13.0 - 17.0 g/dL [facility] HospitalInterpretation and review of laboratory resultsAbnormalCleveland ClinicLymphocytes (Bld) [#/Vol]0.24 10*3/uLLowParkwood HospitalLymphocytes/100 WBC (Bld)6 %[facility] CenterH (RBC) [Entitic mass]30 pg26.0 - 34.0 pgClevelLakeview HospitalHC (RBC) [Mass/Vol]32 g/dL30.5 - 36.0 g/dLUniversity Hospitals TriPoint Medical CenterV (RBC) [Entitic vol]93.5 fL80.0 - 100.0 fLCleveland ClinicMonocytes (Bld) [#/Vol]0.12 10*3/uLNINFParkwood HospitalMonocytes/100 WBC (Bld)3 %[facility] HospitalNeutrophils (Bld) [#/Vol]3.69 10*3/uLParkwood HospitalNeutrophils/100 WBC (Bld)91 %[facility] HospitalNucleated RBC (Bld) [#/Vol]NINFCleveland ClinicNucleated RBC/100 WBC (Bld) [Ratio]0 %/100 WBCParkwood HospitalOvalocytes LM Ql (Bld)FewClewilson health ClinicPlatelet mean volume (Bld) [Entitic vol]8.8 fLLow9.0 - 12.7 fLCleveland ClinicPlatelets (Bld) [#/Vol]570 10*3/uLHighClewilson health ClinicPlatelets Estimate (Bld) [#/Vol]IncreasedClewilson health ClinicRBC (Bld) [#/Vol]2.77 10*6/uLLow4.20 - 6.00 m/[facility] HospitalRed Cell MorphReviewed: see results of individual morphologiesBluffton Hospital ([facility]) [#/Vol]4.05 10*3/[facility] HospitalThis is an appended report. These results have been appended to a previously verified report.[facility] RENAL FUNC 2000 PNL SERPLon [id number] PHOSPHATE SERPL-MCNC4.2 mg/dL2.7 - 4.8 mg/dLNOMS HealthcareEGFRCR SERPLBLD CKD-EPI 452222- PINFNOMS HealthcareComment on above:Estimated Glomerular Filtration Rate (eGFR) is calculated using the 2020 CKD-EPI creatinine equation. This equation utilizes serum creatinine, sex, and age as parameters. The creatinine assay has traceable calibration to isotope dilution- mass spectrometry. Refer to KDIGO guidelines for clinical interpretation. In patients with unstable renal function, e.g. those with acute kidney injury, the eGFRmay not accurately reflect actual GFR.Laboratory - Chemistry and Chemistry - challengeon 47-54-2015Hceojyq [Mass/Vol]2.6 g/dLLow3.9 - 4.9 g/dLNOMS HealthcareAnion gap [Moles/Vol]10 mmol/L8 - 15 mmol/LNOMS HealthcareCalcium [Mass/Vol]8.5 mg/dL8.5 - 10.2 mg/dLNOMS HealthcareChloride [Moles/Vol]99 mmol/L 98 - 107 mmol/LNOMS HealthcareCO2 [Moles/Vol]25 mmol/L22 - 30 mmol/LNOMS HealthcareCreatinine [Mass/Vol]0.84 mg/dL0.73 - 1.22 mg/dLNOMS HealthcareGlucose [Mass/Vol]107 mg/bHFeod64 - 99 mg/dLNOIL HealthcareComment on above:The [place] [employer] (ADA) provides guidance for cutoff values for fasting glucose andrandom glucose. The ADA defines fasting as no [...] Standards of Medical Care in Diabetes 2016, [place] [employer]. Diabetes Care. 2016.39(Suppl 1). Magnesium [Mass/Vol]1.5 mg/dLLow1.7 - 2.3 mg/dLNOMS HealthcarePotassium [Moles/Vol]4.7 mmol/L3.7 - 5.1 mmol/LNOMS HealthcareSodium [Moles/Vol]134 mmol/L Nfm517 - 144 mmol/LNOMS HealthcareUrea nitrogen [Mass/Vol]7 mg/dLLow9 - 24 mg/dL NOM HealthcareNo Panel Informationon [id number] and review of laboratory resultsAbnoUniversal Health ServicesSpecimen Type: BLOOD SPECIMEN Ordering Facility: [facility] Address: [address] [place] [address] Original Ordering Provider: CAMILA FERNANDEZ Wilson HealthRenal function 2000 panelon 00-00-8983BQG/1.73 sq M.predicted among non-blacks MDRD (S/P/Bld) [Vol rate/Area]93 mL/min/{1.73_m2}- [facility] Hospitaland ClinicComment on above: Estimated Glomerular Filtration Rate (eGFR) is calculated using the 2020 CKD-EPI creatinine equation. This equation utilizes serum creatinine, sex, and age as parameters. The creatinine assay has traceable calibration to isotope dilution- mass spectrometry. Refer to KDIGO guidelines for clinical interpretation. In patients with unstable renal function, e.g. those with acute kidney injury, the eGFRmay not accurately reflect actual GFR.Phosphate [Mass/Vol]4.2 mg/dL2.7 - 4.8 mg/dLSumma Health Barberton Campus W Auto Differential panel (Bld)on 11-01-2024 Anisocytosis Ql (Bld)PresentClewilson health ClinicBasophils (Bld) [#/Vol]0.09 10*3/uL NINFCleveland ClinicBasophils/100 WBC (Bld)2 %[facility] HospitalDifferential cell count method Nom (Bld)ManualClewilson health ClinicEosinophils (Bld) [#/Vol]0.04 10*3/uLNINFParkwood HospitalEosinophils/100 WBC (Bld)1 %[facility] Erythrocyte distribution width (RBC) [Ratio]17.6 %High11.5 - 15.0 %[facility] HospitalHematocrit (Bld) [Volume fraction]26.3 %Low39.0 - 51.0 %[facility] Hemoglobin (Bld) [Mass/Vol]8.2 g/dLLow13.0 - 17.0 g/dLParkwood Hospital Interpretation and review of laboratory resultsAbnormalCGeorgetown Behavioral Hospital Lymphocytes (Bld) [#/Vol]0.22 10*3/uLLowParkwood HospitalLymphocytes/100 WBC (Bld)5 %[facility] CenterH (RBC) [Entitic mass]29.8 pg26.0 - 34.0 pgCMercy Health Perrysburg HospitalHC (RBC) [Mass/Vol]31.2 g/dL30.5 - 36.0 g/dLUniversity Hospitals TriPoint Medical CenterV (RBC) [Entitic vol]95.6 fL80.0 - 100.0 fLCdetwiler memorial hospitaland ClinicMeta %1 %[facility] Monocytes (Bld) [#/Vol]0.09 10*3/uLNINFParkwood HospitalMonocytes/100 WBC (Bld)2 %[facility] HospitalNeutrophils (Bld) [#/Vol]3.9 10*3/uLParkwood Hospital Neutrophils/100 WBC (Bld)89 %[facility] HospitalNucleated RBC (Bld) [#/Vol]NINF [facility] HospitalNucleated RBC/100 WBC (Bld) [Ratio]0 %/100 WBCParkwood Hospital Ovalocytes LM Ql (Bld)FewParkwood HospitalPlatelet mean volume (Bld) [Entitic vol]9 fL9.0 - 12.7 fLCleveland ClinicPlatelets (Bld) [#/Vol]565 10*3/uLHigh Parkwood HospitalPlatelets Estimate (Bld) [#/Vol]IncreasedCleBerger HospitalRBC (Bld) [#/Vol]2.75 10*6/uLLow4.20 - 6.00 m/uLParkwood HospitalRBC FragmentsFew AbnormalNone SeenParkwood HospitalRed Cell MorphReviewed: see results of individual morphologiesCleveland ClinicWBC (Bld) [#/Vol]4.38 10*3/[facility] Left Shift Ql (Bld)[facility] HospitalThis is an appended report. These results have been appended to a previously verified report.[facility] MAGNESIUM SERPL-MCNCon [id number] Type: BLOOD SPECIMEN Ordering Facility: [facility] Address: [address] [place] [address] Original Ordering Provider: SUZE RENAE NT-PROBNP SERPL-MCNCon [id number] peptide B (Bld) [Mass/Vol]480 pg/mLHighNINF - 125 pg/mL [facility] HospitalSpecimen Type: BLOOD SPECIMEN Ordering Facility: [facility] Address: [address] [place] [address] Original Ordering Provider: JONAS CHATMAN RENAL FUNC 2000 PNL SERPLon [id number] PHOSPHATE SERPL-MCNC4.2 mg/dL2.7 - 4.8 mg/dLSelect Specialty HospitalEGFRCR SERPLBLD CKD-EPI 197104- PINFNOJefferson Memorial HospitalComment on above: Estimated Glomerular Filtration Rate (eGFR) is calculated using the 2020 CKD-EPI creatinine equation. This equation utilizes serum creatinine, sex, and age as parameters. The creatinine assay has traceable calibration to isotope dilution- mass spectrometry. Refer to KDIGO guidelines for clinical interpretation. In patients with unstable renal function, e.g. those with acute kidney injury, the eGFRmay not accurately reflect actual GFR.Specimen Type: BLOOD SPECIMEN Ordering Facility: [facility] Address: [address] [place] [address] Original Ordering Provider: CAMILA MARIOERRITINon 82-70-1678Mjykwmyd [Mass/Vol]5826 ng/oWYavj77.3 - 565.7 ng/mLCleveland ClinicFOLATE, SERUMon 65-25-0219Nbiutz [Mass/Vol]9.2 ng/mL4.7 - PINF ng/mLCleveland ClinicFerritin [Mass/Vol]on 21-94-2679Sxdyojdmlrlsnw and review of laboratory resultsAbnormal Barth ClinicCleveland ClinicIron and Iron binding capacity panelon 42-26-8731Fgalhuvxklyylx and review of laboratory resultsAbnormalCleveland ClinicIron [Mass/Vol]28 ug/dLLow41 - 186 ug/dLClewilson health ClinicIron binding capacity [Mass/Vol]74 ug/sAUyh598 - 386 ug/dLParkwood HospitalIron/TIBC [Molar ratio]37.8 %20.0 - 55.0 %[facility] HospitalLaboratory - Chemistry and Chemistry - challengeon 48-78-5503Lefbtrm [Mass/Vol]2.6 g/dLLow3.9 - 4.9 g/dLNOMS HealthcareAnion gap [Moles/Vol]11 mmol/L8 - 15 mmol/LNOMS Healthcare Calcium [Mass/Vol]8.5 mg/dL8.5 - 10.2 mg/dLNOMS HealthcareChloride [Moles/Vol] 100 mmol/L98 - 107 mmol/LNOMS HealthcareCO2 [Moles/Vol]26 mmol/L22 - 30 mmol/L NOMS HealthcareCreatinine [Mass/Vol]0.88 mg/dL0.73 - 1.22 mg/dLNOMS Healthcare Glucose [Mass/Vol]101 mg/pUEsvh51 - 99 mg/dLNOMS HealthcareComment on above:The [place] Diabetes [employer] (ADA) provides guidance for cutoff values for fasting glucose andrandom glucose. The ADA defines fasting as no [...] Standards of Medical Care in Diabetes 2016, [place] [employer]. Diabetes Care. 2016.39(Suppl 1). Magnesium [Mass/Vol]1.8 mg/dL1.7 - 2.3 mg/dLNOMS HealthcarePotassium [Moles/Vol] 5 mmol/L3.7 - 5.1 mmol/LNOMS HealthcareSodium [Moles/Vol]137 mmol/L136 - 144 mmol/LNOMS HealthcareUrea nitrogen [Mass/Vol]7 mg/dLLow9 - 24 mg/dLNOMS HealthcareMagnesium [Mass/Vol]on 00-26-3205Hhtouzorxaeqvk and review of laboratory resultsNormalCleveland ClinicNT PRO BNPon 69-05-8699Ppqkundqtne peptide.B prohormone N-Terminal [Mass/Vol]480 pg/mLHighNINF - 125 pg/mLCleveland ClinicNo Panel Informationon 04-46-6755Bvpnhtmzwxmxck and review of laboratory resultsNormalCleveland [facility] ClinicInterpretation and review of laboratory resultsAbnormalNOJefferson Memorial HospitalNOIL HealthcareRenal function 2000 panelon 43-41-4658TVN/1.73 sq M.predicted among non-blacks MDRD (S/P/Bld) [Vol rate/Area]92 mL/min/{1.73_m2}- PINFCleveland ClinicComment on above:Estimated Glomerular Filtration Rate (eGFR) is calculated using the 2020 CKD-EPI creatinine equation. This equation utilizes serum creatinine, sex, and age as parameters. The creatinine assay has traceable calibration to isotope dilution- mass spectrometry. Refer to KDIGO guidelines for clinical interpretation. In patients with unstable renal function, e.g. those with acute kidney injury, the eGFRmay not accurately reflect actual GFR.Phosphate [Mass/Vol]4.2 mg/dL2.7 - 4.8 mg/dLParkwood HospitalVITAMIN B12on 91-18-0530Czjokjvte (Vitamin B12) [Mass/Vol] 878 pg/mL232 - 1245 pg/mLCleveland Westbrook Medical CenterC-REACTIVE PROTEINon 92-63-6797WSD [Mass/Vol]23.3 mg/dLHighNINF - 0.9 mg/dLSumma Health Barberton Campus W Auto Differential panel (Bld)on 16-52-5529Xbygslhkkojb Ql (Bld)PresentParkwood HospitalBasophils (Bld) [#/Vol]0 10*3/uLNINFAmarillo ClinicBasophils/100 WBC (Bld)0 %[facility] HospitalDifferential cell count method Nom (Bld)ManualClewilson health ClinicEosinophils (Bld) [#/Vol]0.05 10*3/uLNINFParkwood HospitalEosinophils/100 WBC (Bld)1 % [facility] HospitalErythrocyte distribution width (RBC) [Ratio]17.3 %High11.5 - 15.0 %[facility] HospitalHematocrit (Bld) [Volume fraction]25.1 %Low39.0 - 51.0 % [facility] HospitalHemoglobin (Bld) [Mass/Vol]7.9 g/dLLow13.0 - 17.0 g/dLParkwood HospitalInterpretation and review of laboratory resultsAbnormalCGeorgetown Behavioral Hospital Lymphocytes (Bld) [#/Vol]0.2 10*3/uLLowParkwood HospitalLymphocytes/100 WBC (Bld) 4 %[facility] HospitalMCH (RBC) [Entitic mass]30.3 pg26.0 - 34.0 pgCGeorgetown Behavioral Hospital MCHC (RBC) [Mass/Vol]31.5 g/dL30.5 - 36.0 g/dLParkwood HospitalMCV (RBC) [Entitic vol]96.2 fL80.0 - 100.0 fLCGeorgetown Behavioral HospitalMonocytes (Bld) [#/Vol]0.05 10*3/uL NINThe University of Toledo Medical CenterMonocytes/100 WBC (Bld)1 %[facility] HospitalNeutrophils (Bld) [#/Vol]4.73 10*3/uLParkwood HospitalNeutrophils/100 WBC (Bld)94 %[facility] Nucleated RBC (Bld) [#/Vol]NINFCGeorgetown Behavioral HospitalNucleated RBC/100 WBC (Bld) [Ratio]0 %/100 WBCParkwood HospitalOvalocytes LM Ql (Bld)FewParkwood Hospital Platelet mean volume (Bld) [Entitic vol]9.3 fL9.0 - 12.7 [facility] Platelets (Bld) [#/Vol]526 10*3/uLHighParkwood HospitalPlatelets Estimate (Bld) [#/Vol]IncreasedParkwood HospitalRBC (Bld) [#/Vol]2.61 10*6/uLLow4.20 - 6.00 m/uL [facility] HospitalRed Cell MorphReviewed: see results of individual morphologies [facility] HospitalWBC (Bld) [#/Vol]5.03 10*3/uLParkwood HospitalThis is an appended report. These results have been appended to a previously verified report. [facility] HospitalCCF PHOSPHATE SERPL-MCNCon [id number] PHOSPHATE SERPL-MCNC4.1 mg/dL2.7 - 4.8 mg/dLSelect Specialty HospitalSpecimen Type: BLOOD SPECIMEN Ordering Facility: [facility] Address: [address] [place] [address] Original Ordering Provider: DAVID MYERSISYNCComprehensive metabolic 2000 panelon 43-69-3338Usacrih [Mass/Vol]2.4 g/dLLow3.9 - 4.9 g/dLAmarillo ClinicALP [Catalytic activity/Vol]158 U/LHigh38 - 113 U/LCleveland ClinicALT [Catalytic activity/Vol]8 U/LLow10 - 54 U/LCleveland ClinicAnion gap [Moles/Vol]12 mmol/L8 - 15 mmol/LCleveland ClinicAST [Catalytic activity/Vol]16 U/L14 - 40 U/L [facility] HospitalBilirubin [Mass/Vol]0.3 mg/dL0.2 - 1.3 mg/dLParkwood Hospital Calcium [Mass/Vol]8.1 mg/dLLow8.5 - 10.2 mg/dLAmarillo ClinicChloride [Moles/Vol]102 mmol/L98 - 107 mmol/LCleveland ClinicCO2 [Moles/Vol]22 mmol/L22 - 30 mmol/LCleveland ClinicCreatinine [Mass/Vol]0.82 mg/dL0.73 - 1.22 mg/dL [place] ClinicGFR/1.73 sq M.predicted among non-blacks MDRD (S/P/Bld) [Vol rate/Area]94 mL/min/{1.73_m2}- PINFCleveland ClinicComment on above:Estimated Glomerular Filtration Rate (eGFR) is calculated using the 2020 CKD-EPI creatinine equation. This equation utilizes serum creatinine, sex, and age as parameters. The creatinine assay has traceable calibration to isotope dilution- mass spectrometry. Refer to KDIGO guidelines for clinical interpretation. In patients with unstable renal function, e.g. those with acute kidney injury, the eGFRmay not accurately reflect actual GFR.Glucose [Mass/Vol]82 mg/dL74 - 99 mg/dLClewilson health ClinicComment on above:The [place] Diabetes Association (ADA) provides guidance for cutoff values for fasting glucose andrandom glucose. The ADA defines fasting as no caloric intake for at least 8 hours. Fasting plasma gl ucose results between 100 to 125 mg/dL indicate [...] Standards of Medical Care in Diabetes 2016, [place] [employer]. Diabetes Care. 2016.39(Suppl 1). Potassium [Moles/Vol]5.1 mmol/L3.7 - 5.1 mmol/LCleveland ClinicProtein [Mass/Vol]5 g/dLLow6.3 - 8.0 g/dLAmarillo ClinicSodium [Moles/Vol]136 mmol/L136 - 144 mmol/LCleveland ClinicUrea nitrogen [Mass/Vol]8 mg/dLLow9 - 24 mg/dL [facility] HospitalGGTon 09-26-6711Sbogn glutamyl transferase [Catalytic activity/Vol]111 U/LHigh10 - 70 U/LCleveland ClinicGamma glutamyl transferase [Catalytic activity/Vol]on 72-57-6841Tbqmaokiyqqiau and review of laboratory resultsAbnormalCleveland [facility] ClinicMAGNESIUMon 13-88-1820Xnouydnti [Mass/Vol]1.6 mg/dLLow1.7 - 2.3 mg/dLParkwood HospitalNT PRO BNPon 10-31-2024 Natriuretic peptide.B prohormone N-Terminal [Mass/Vol]462 pg/mLHighNINF - 125 pg/mLCleveland ClinicNatriuretic peptide.B prohormone N-Terminal [Mass/Vol]on 58-61-7306Yosqdzttdbbgqk and review of laboratory resultsAbnormalCCleveland Clinic Euclid HospitalNo Panel Informationon 29-40-6387Jkrmyjywzvnvsg and review of laboratory resultsAbnormalCCleveland Clinic [facility] PHOSPHORUS INORGANICon 74-16-5140Ibxrszfuj [Mass/Vol]4.1 mg/dL2.7 - 4.8 mg/dL Barth ClinicPhosphate [Mass/Vol]on 10-18-0728Rryszcabsqaqgq and review of laboratory resultsNormalCleveland ClinicTACROLIMUS/FK-506 BLOrdered By: Pascual Adler on 87-75-1218Cyvjkufske (Bld) [Mass/Vol]3.5 ng/mLLow5.0 - 20.0 ng/mLCleveland ClinicComment on above:Individualized target levels for a given patient will depend on many factors (including the type oforgan transplant, time since transplantation, concurrent medications, and other clinical factors), and should be assessed by those health care providers experienced in the management of immunosuppression. Reference ranges and high/low indicator flags are provided as general guidelines only. The treating physician must determine appropriate target levels/dosing based on the specific clinical situation. 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 Ordering physician: BRANDI BECKETT Exam indication: Shortness [...] * * * Final * * * [employer] : [id number]^[employer]^SI^SUIDCC Radiology, Radiologist, - 10/17/2024 Echocardiography Report: Transthoracic Echo [place] Bedside Date of service: 10/17/2024 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 Ordering physician: BRANDI BECKETT Exam indication: Shortness [...] * * * Final * * * [employer] : [id number]^[employer]^SI^CELESTE ID [facility] HospitalRadiology Study observation (narrative)[facility] Special[facility] HospitalECHOOrdered By: Radiologist Radiology on 60-19-8111SYVISelect Specialty Hospital Work Phone: [facility] O+P SPEC MICROon [id number] O+P SPEC MICRO OVA AND PARASITE EXAM: No Parasites Seen [facility]ty HospitalOriginal Ordering Provider: BRANDI Syed KYLENYPrisma Health [facility] CYTOLOGY NON-GYNon [id number] DISCLAIMERNOJefferson Memorial HospitalComment on above: Laboratory Developed Test (LDT) Disclaimer: Performance characteristics of immunohistochemical, immunofluorescent, and chromogenic in-situ hybridization tests have been determined by the performing laboratory within [facility]'s [facility] Pathology and Laboratory Medicine Department ([facility], [facility], [facility], [facility], [facility], [facility], or [facility]) in a manner consistent with CLIA requirements. One or more of these tests may not have been cleared or approved by the FDA. [employer] is regulated under CLIA as qualified to perform high- complexity testing. These tests are used for clinical purposes. These should not be regarded asinvestigational or for research. Positive and negative controls stain appropriately. [facility] CASE REPORTNOJefferson Memorial HospitalComment on above:Medical Cytology Report Case: [id number] Authorizing Provider: Nilay Villatoro MD Collected: 10/14/2024 03:31 PM Ordering Location: [place] [address] Received: 10/14/2024 06:22 PM Pathologist: Belén Green MD Specimen: Pleural Cavity, Left [facility] CLINICAL HISTORYNOMS HealthcareComment on above:Pre-op diagnosis: Pleural effusion [J90] [facility] FINAL DIAGNOSISNOMS HealthcareComment on above:A. Left Pleural Cavity Fluid: Negative for malignant cells. Acute inflammation. Reactive mesothelial cells. The following cell blocks were associated with this case: A1 Cell Block, Alcohol Fixed at 1715 EDT [facility] FINAL PERFORMING LABNOMS HealthcareComment on above:Technical component, set painter screening performed at: [facility], [address] [place] [address] CLIA: [id number] Diagnostic interpretation performed at: [facility], [address] [place] [address] CLIA# [id number] Route Driver: Emmett New MD [facility] GROSS DESCRIPTIONNOMS HealthcareComment on above:A. Pleural Cavity, Left 60 cc cloudy kaylie fluid with material. ThinPrep and Cell Block prepared. [facility] ORDER COMMENTNOMS HealthcareComment on above:Pre-op diagnosis: Pleural effusion [J90] Specimen Type: SPECIMEN FROM PLEURA OBTAINED BY THORACENTESIS Ordering Facility: [facility] Address: [address] [place] [address] Original Ordering Provider: NILAY MONCADA HealthcareCCF RESP PATH 12B PNL SPEC JESSICA+PROBEon 54-41-5534IYH RESP PATH 12B PNL SPEC JESSICA+PROBE INFLUENZA A RNA: Not detected AbnormalNOMS HealthcareCCF RESP PATH 12B PNL SPEC EJSSICA+PROBE INFLUENZA B RNA: Not detected AbnormalNOMS HealthcareCCF RESP PATH 12B PNL SPEC JESSICA+PROBE RESPIRATORY SYNCYTIAL VIRUS (RSV) RNA: Not detected AbnormalNOMS HealthcareCCF RESP PATH 12B PNL SPEC JESSICA+PROBE HUMAN METAPNEUMOVIRUS (HMPV) RNA: Not detected AbnormalNOMS HealthcareCCF RESP PATH 12B PNL SPEC JESSICA+PROBE HUMAN RHINOVIRUS/ENTEROVIRUS RNA: Not detected AbnormalNOMS HealthcareCCF RESP PATH 12B PNL SPEC JESSICA+PROBE ADENOVIRUS DNA: Not detected AbnormalNOMS HealthcareCCF RESP PATH 12B PNL SPEC JESSICA+PROBE PARAINFLUENZA 1 RNA: Not detected AbnormalNOMS HealthcareCCF RESP PATH 12B PNL SPEC JESSICA+PROBE PARAINFLUENZA 2 RNA: Not detected AbnormalNOMS HealthcareCCF RESP PATH 12B PNL SPEC JESSICA+PROBE PARAINFLUENZA 3 RNA: Detected AbnormalNOMS HealthcareCCF RESP PATH 12B PNL SPEC JESSICA+PROBE PARAINFLUENZA 4 RNA: Not detected AbnormalNOMS HealthcareCCF RESP PATH 12B PNL SPEC JESSICA+PROBE CORONAVIRUS 229E RNA: Not detected AbnormalNOMS HealthcareCCF RESP PATH 12B PNL SPEC JESSICA+PROBE CORONAVIRUS OC43 RNA: Not detected AbnormalNOMS HealthcareCCF RESP PATH 12B PNL SPEC JESSICA+PROBE CORONAVIRUS NL63 RNA: Not detected AbnormalNOMS HealthcareCCF RESP PATH 12B PNL SPEC JESSICA+PROBE CORONAVIRUS HKU1 RNA: Not detected AbnormalNOMS HealthcareCCF RESP PATH 12B PNL SPEC JESSICA+PROBE CHLAMYDIA PNEUMONIAE DNA: Not detected AbnormalNOMS HealthcareCCF RESP PATH 12B PNL SPEC JESSICA+PROBE MYCOPLASMA PNEUMONIAE DNA: Not detected AbnormalNOMS HealthcareCCF RESP PATH 12B PNL SPEC JESSICA+PROBE BORDETELLA PERTUSSIS DNA: Not detected AbnormalNOMS HealthcareCCF RESP PATH 12B PNL SPEC JESSICA+PROBE BORDETELLA PARAPERTUSSIS DNA: Not detected AbnormalNOMS HealthcareInterpretation and review of laboratory resultsAbnormal NOMS GbgexpauczEADI-YwY-8 (COVID-19) RNA JESSICA+probe Ql (Unsp spec) SARS-COV-2 (AGENT OF COVID-19) RNA: Not detected AbnormalNOMS HealthcareOriginal Ordering Provider: BRANDI CANDELARIOOU MEDICAL CENTER [facility] HealthcareC-REACTIVE PROTEINon [id number] [Mass/Vol]22.3 mg/dLHighNINF - 0.9 mg/dLSumma Health Barberton Campus W Auto Differential panel (Bld)on 81-08-7450Lkcxsuiza (Bld) [#/Vol]0.04 10*3/uLNINFCleBerger HospitalDifferential cell count method Nom (Bld)AutoCleveland ClinicEosinophils (Bld) [#/Vol]0.36 10*3/uLNIAvita Health SystemImmature granulocytes (Bld) [#/Vol]0.13 10*3/uLHighMarion Hospital Immature granulocytes/100 WBC (Bld)1.4 %[facility]wood HospitalLymphocytes (Bld) [#/Vol]0.26 10*3/uLLowAmarillo ClinicMonocytes (Bld) [#/Vol]1.34 10*3/uLHigh NINFCleveland ClinicNeutrophils (Bld) [#/Vol]7.15 10*3/uLParkwood Hospital Nucleated RBC (Bld) [#/Vol]NINFCleveland ClinicNucleated RBC/100 WBC (Bld) [Ratio]0 %/100 WBCParkwood HospitalPlatelet mean volume (Bld) [Entitic vol]9.1 fL 9.0 - 12.7 fLCleveland ClinicPlatelets (Bld) [#/Vol]503 10*3/uLSt. Vincent HospitalWBC (Bld) [#/Vol]9.28 10*3/uLParkwood HospitalCCF CBC W AUTO DIFF BLDon 73-24-2224PGW BASOPHILS # BLD AUTO0.04NINorthcrest Medical Center DIFFERENTIAL METHOD BLDAutoNOMS [facility] EOSINOPHIL # BLD AUTO0.36NINorthcrest Medical Center LYMPHOCYTES # BLD AUTO0.26LowFreeman Cancer Institute MONOCYTES # BLD AUTO1.34HighNIGibson General HospitalF NEUTROPHILS # BLD AUTO7.15NOMS Henry County HospitalF NRBC # BLD AUTO <0.01NINorthcrest Medical Center NRBC/100 WBC BLD-RTO0/100 WBCFreeman Cancer Institute PLATELET # BLD [id number] Clinic PMV BLD AUTO9.1 fL9.0 - 12.7 fLFreeman Cancer Institute WBC # BLD AUTO9.28[facility] GRANULOCYTES # BLD AUTO0.13 HighNISt. Johns & Mary [facility] GRANULOCYTES/LEUK NFR BLD AUTO1.4 %[facility] Specimen Type: BLOOD SPECIMEN Ordering Facility: [facility] Address: [address] [place] [id number] Original Ordering Provider: DAVID RENE ABD/PEL WO IVCONon 10-07-2024* * *Final Report* * * DATE OF EXAM: Oct 07 2024 3:00PM [facility] - CT ABD/PEL WO IVCON / [...] on 10/07/2024 3:54 PM via verbal communication. Ward Maid: SRINI Transcribe Date/Time: Oct 07 2024 3:17P Dictated by : JOSE GUADALUPE VÁZQUEZ MD This examination was interpreted and the report reviewed and electronically signed by: JOSE GUADALUPE VÁZQUEZ MD on Oct 07 2024 4:01PM EST [id number]^AGFA_IDC^SI^ACNCCFRadiology, Radiologist, - 10/07/2024 * * *Final Report* * * DATE OF EXAM: Oct 07 2024 3:00PM [facility] - CT ABD/PEL WO IVCON / [...] on 10/07/2024 3:54 PM via verbal communication. Ward Maid: SRINI Transcribe Date/Time: Oct 07 2024 3:17P Dictated by : JOSE GUADALUPE VÁZQUEZ MD This examination was interpreted and the report reviewed and electronically signed by: JOSE GUADALUPE VÁZQUEZ MD on Oct 07 2024 4:01PM EST [id number]^AGFA_IDC^SI^ACN [facility] HealthcareCT ABD/PEL WO IVCON* * *Final Report* * * DATE OF EXAM: Oct 07 2024 3:00PM [facility] - CT ABD/PEL WO IVCON / [...] on 10/07/2024 3:54 PM via verbal communication. Ward Maid: SRINI Transcribe Date/Time: Oct 07 2024 3:17P Dictated by : JOSE GUADALUPE VÁZQUEZ MD This examination was interpreted and the report reviewed and electronically signed by: JOSE GUADALUPE VÁZQUEZ MD on Oct 07 2024 4:01PM EST [id number]_[id number] HospitalKS ABD/PEL WO IVCONOrdered By: Radiologist Radiology on [id number] [employer] Work Phone: cT BRAIN WO IVCONon 10-07-2024* * *Final Report* * * DATE OF EXAM: Oct 07 2024 3:00PM [facility] - CT BRAIN WO IVCON / [...] PROCESS. NO SIGNIFICANT INTERVAL CHANGE SINCE 08/27/2024. Ward Maid: SRINI Transcribe Date/Time: Oct 07 2024 3:20P Dictated by : ROSAURA CERVANTES MD This examination was interpreted and the report reviewed and electronically signed by: ROSAURA CERVANTES MD on Oct 07 2024 3:22PM EST [id number]^AGFA_IDC^SI^ACNCCFRadiology, Radiologist, - 10/07/2024 * * *Final Report* * * DATE OF EXAM: Oct 07 2024 3:00PM [facility] - CT BRAIN WO IVCON / [...] PROCESS. NO SIGNIFICANT INTERVAL CHANGE SINCE 08/27/2024. Ward Maid: SRINI Transcribe Date/Time: Oct 07 2024 3:20P Dictated by : ROSAURA CERVANTES MD This examination was interpreted and the report reviewed and electronically signed by: ROSAURA CERVANTES MD on Oct 07 2024 3:22PM EST [id number]^AGFA_IDC^SI^ACN NOMS HealthcareCT BRAIN WO IVCON* * *Final Report* * * DATE OF EXAM: Oct 07 2024 3:00PM [facility] - CT BRAIN WO IVCON / [...] PROCESS. NO SIGNIFICANT INTERVAL CHANGE SINCE 08/27/2024. Ward Maid: SIRNI Transcribe Date/Time: Oct 07 2024 3:20P Dictated by : ROSAURA CERVANTES MD This examination was interpreted and the report reviewed and electronically signed by: ROSAURA CERVANTES MD on Oct 07 2024 3:22PM EST [id number]_[id number] HospitalCT Head WO contraston 10-07-2024 IMPRESSION: NO CT EVIDENCE OF ACUTE INTRACRANIAL PROCESS. NO SIGNIFICANT INTERVAL CHANGE SINCE 08/27/2024. Ward Maid: SRINI Transcribe Date/Time: Oct 07 2024 3:20P Dictated by : ROSAURA CERVANTES MD This examination was interpreted and the report reviewed and electronically signed by: ROSAURA CERVANTES MD on Oct 07 2024 3:22PM EST [facility]* * *Final Report* * * DATE OF EXAM: Oct 07 2024 3:00PM [facility] - CT BRAIN WO IVCON / [...] are unremarkable. Localizer images: No additional findings. [facility], [facility] [place] - 10/07/2024 * * *Final Report* * * DATE OF EXAM: Oct 07 2024 3:00PM [facility] [employer] [facility] - CT BRAIN WO IVCON / [...] PROCESS. NO SIGNIFICANT INTERVAL CHANGE SINCE 08/27/2024. Ward Maid: [facility] Transcribe Date/Time: Oct 07 2024 3:20P Dictated by : ROSAURA CERVANTES MD This examination was interpreted and the report reviewed and electronically signed by: ROSAURA CERVANTES MD on Oct 07 2024 3:22PM EST Parkwood HospitalCYTOMEGALOVIRUS (CMV) DNA, QUANTITATIVE PCR, PLASMAon 10-07-2024 CMV DNA JESSICA+probe [#/Vol]82HighParkwood HospitalCMV DNA JESSICA+probe [Log #/Vol]1.91 [facility] HospitalV DNA JESSICA+probe Qn (P)DetectedAbnormalNot DetectedParkwood HospitalInterpretation and review of laboratory resultsAbnoalCGeorgetown Behavioral Hospital sav CMV is an in vitro nucleic acid amplification test for the quantitation of cytomegalovirus (CMV) DNA in human EDTA plasma. The linear range of the assay is 34.5 to 10,000,000 IU/mL (1.54 - 7.00log IU/mL). The lower limit of detection of the assay is 34.5 IU/mL.[facility] HospitalComprehensive metabolic 2000 panelon 70-19-1483Vcmlxpu [Mass/Vol]2.3 g/dLLow3.9 - 4.9 g/dLCleveland ClinicALP [Catalytic activity/Vol]215 U/LHigh38 - 113 U/LCleveland ClinicALT [Catalytic activity/Vol]15 U/L10 - 54 U/LCleveland ClinicAnion gap [Moles/Vol]15 mmol/L8 - 15 mmol/LCleveland ClinicAST [Catalytic activity/Vol]22 U/L14 - 40 U/LCleveland ClinicBilirubin [Mass/Vol]0.2 mg/dL0.2 - 1.3 mg/dLClewilson health Clinic Calcium [Mass/Vol]8 mg/dLLow8.5 - 10.2 mg/dLClewilson health ClinicChloride [Moles/Vol] 101 mmol/L98 - 107 mmol/LCleveland ClinicCO2 [Moles/Vol]19 mmol/LLow22 - 30 mmol/LCleveland ClinicCreatinine [Mass/Vol]1.09 mg/dL0.73 - 1.22 mg/dLAmarillo ClinicGFR/1.73 sq M.predicted among non-blacks MDRD (S/P/Bld) [Vol rate/Area]73 mL/min/{1.73_m2}- PINFCGeorgetown Behavioral HospitalComment on above:Estimated Glomerular Filtration Rate (eGFR) is calculated using the 2020 CKD-EPI creatinine equation. This equation utilizes serum creatinine, sex, and age as parameters. The creatinine assay has traceable calibration to isotope dilution-mass spectrometry. Refer to KDIGO guidelines for clinical interpretation. In patients with unstable renal function, e.g. those with acute kidney injury, the eGFRmay not accurately reflect actual GFR.Glucose [Mass/Vol]97 mg/dL74 - 99 mg/dL [facility] on above:The [place] Diabetes [employer] (ADA) provides guidance for cutoff values for fasting glucose andrandom glucose. The ADA defines fasting as no caloric intake for at least 8 hours. Fasting plasma gl ucose results between 100 to 125 mg/dL indicate [...] Standards of Medical Care in Diabetes 2016, [place] [employer]. Diabetes Care. 2016.39(Suppl 1). Potassium [Moles/Vol]4.9 mmol/L3.7 - 5.1 mmol/LCleveland ClinicProtein [Mass/Vol]4.7 g/dLLow6.3 - 8.0 g/dLShelby Memorial Hospitalodium [Moles/Vol]135 mmol/L Riw855 - 144 mmol/LCleveland ClinicUrea nitrogen [Mass/Vol]9 mg/dL9 - 24 mg/dL Parkwood HospitalGGTon 99-18-4280Ipnar glutamyl transferase [Catalytic activity/Vol]106 U/LHigh10 - 70 U/LCleveland ClinicGamma glutamyl transferase [Catalytic activity/Vol]on 83-07-5373Lydedzzpapxzkq and review of laboratory resultsAbnormalCdetwiler memorial hospitaland Adams County HospitalLaboratory - Hematology and Cell countson 09-79-3190Symbpmsce/100 WBC (Bld)0.4 %[facility] HealthcareEosinophils/100 WBC (Bld)3.9 %[facility] HospitalErythrocyte distribution width (RBC) [Ratio]16 % High11.5 - 15.0 %[facility] HospitalHematocrit (Bld) [Volume fraction]22.1 %Low39.0 - 51.0 %[facility] HospitalHemoglobin (Bld) [Mass/Vol]7.2 g/dLLow13.0 - 17.0 g/dL [facility] HospitalLymphocytes/100 WBC (Bld)2.8 %[facility] HospitalMCH (RBC) [Entitic mass]30.9 pg26.0 - 34.0 pgLee's Summit HospitalHC (RBC) [Mass/Vol]32.6 g/dL30.5 - 36.0 g/dLSelect Specialty HospitalMCV (RBC) [Entitic vol]94.8 fL80.0 - 100.0 fLSelect Specialty HospitalMonocytes/100 WBC (Bld)14.4 %[facility] HospitalNeutrophils/100 WBC (Bld) 77.1 %[facility] HospitalRBC (Bld) [#/Vol]2.33 10*6/uLLow4.20 - 6.00 m/uLCASTLEVIEW HOSPITAL HealthcareMAGNESIUMon 88-86-0802Aeujasfkl [Mass/Vol]1.7 mg/dL1.7 - 2.3 mg/dL Barth ClinicMagnesium [Mass/Vol]on 12-86-6966Picsvdfqswoufo and review of laboratory resultsNormalCleveland ClinicNT PRO BNPon 20-62-0123Pqfrlmkyqmk peptide.B prohormone N-Terminal [Mass/Vol]533 pg/mLHighNINF - 125 pg/mLCleveland ClinicNatriuretic peptide.B prohormone N-Terminal [Mass/Vol]on 10-07-2024 Interpretation and review of laboratory resultsAbnoAtrium Health Carolinas Rehabilitation Charlotteand Adams County HospitalNo Panel InformationOrdered By: Radiologist Radiology on 48-64-0960MUCQ [employer] Work Phone: No Panel Informationon 58-51-9961Sbxwujddptqgyi and review of laboratory resultsAbSt. Rita's Hospital Interpretation and review of laboratory resultsAbMcLaren Caro Region HealthcareRadiology Study observation (narrative)NOMS HealthcareTACROLIMUS/FK- 506 BLOrdered By: Sabrina Bishop on 14-19-6044Uexmfogsae (Bld) [Mass/Vol]6.6 ng/mL5.0 - 20.0 ng/mLCleveland ClinicComment on above:Individualized target levels for a given patient will depend on many factors (including the type oforgan transplant, time since transplantation, concurrent medications, and other clinical factors), and should be assessed by those health care providers experienced in the management of immunosuppression. Reference ranges and high/low indicator flags are provided as general guidelines only. The treating physician must determine appropriate target levels/dosing based on the specific clinical situation. Test performed by chemiluminescent immunoassay using Lakhani Alinity i.Tacrolimus (Bld) [Mass/Vol]Ordered By: Sabrina Bishop on 10-07-2024 Interpretation and review of laboratory resultsNormalCdetwiler memorial hospitaland [facility] W Auto Differential panel (Bld)on 11-32-3287Tiofiiboe (Bld) [#/Vol] 0.03 10*3/uLNINFParkwood HospitalDifferential cell count method Nom (Bld)Auto Parkwood HospitalEosinophils (Bld) [#/Vol]0.42 10*3/uLNIAvita Health System Immature granulocytes (Bld) [#/Vol]0.09 10*3/uLNIAvita Health SystemImmature granulocytes/100 WBC (Bld)1 %Parkwood HospitalLymphocytes (Bld) [#/Vol]0.33 10*3/uLLowAmarillo ClinicMonocytes (Bld) [#/Vol]1.26 10*3/uLHighNINFAmarillo ClinicNeutrophils (Bld) [#/Vol]6.83 10*3/uLParkwood HospitalNucleated RBC (Bld) [#/Vol]NINFCGeorgetown Behavioral HospitalNucleated RBC/100 WBC (Bld) [Ratio]0 %/100 WBC Amarillo ClinicPlatelet mean volume (Bld) [Entitic vol]9.1 fL9.0 - 12.7 fL [place] ClinicPlatelets (Bld) [#/Vol]482 10*3/uLHighParkwood HospitalWBC (Bld) [#/Vol]8.96 10*3/uLParkwood HospitalCCF CBC W AUTO DIFF BLDon [id number] BASOPHILS # BLD AUTO0.03NINorthcrest Medical Center DIFFERENTIAL METHOD BLDAutoNOMS [facility] EOSINOPHIL # BLD AUTO0.42NINorthcrest Medical Center LYMPHOCYTES # BLD AUTO0.33[facility] MONOCYTES # BLD AUTO1.26HighNINorthcrest Medical Center NEUTROPHILS # BLD AUTO6.83[facility] NRBC # BLD AUTO<0.01NINorthcrest Medical Center NRBC/100 WBC BLD-RTO0/100 WBCFreeman Cancer Institute PLATELET # BLD [id number] Cancer Institute PMV BLD AUTO9.1 fL9.0 - 12.7 fLFreeman Cancer Institute WBC # BLD AUTO8.96[facility] GRANULOCYTES # BLD AUTO0.09NISt. Johns & [facility] GRANULOCYTES/LEUK NFR BLD AUTO1 %NOMS HealthcareSpecimen Type: BLOOD SPECIMEN Ordering Facility: [facility] Address: [address] [place] [address] Original Ordering Provider: SUZE Almanzaroratory - Hematology and Cell countson 79-73-2747Iyqvhwpfg/100 WBC (Bld)0.3 %[facility] Eosinophils/100 WBC (Bld)4.7 %NOMS HealthcareErythrocyte distribution width (RBC) [Ratio]16 %High11.5 - 15.0 %[facility] HospitalHematocrit (Bld) [Volume fraction]21.7 %Low39.0 - 51.0 %[facility] HospitalHemoglobin (Bld) [Mass/Vol]7 g/dL Low13.0 - 17.0 g/dLSelect Specialty HospitalLymphocytes/100 WBC (Bld)3.7 %[facility] MCH (RBC) [Entitic mass]31.1 pg26.0 - 34.0 pgSelect Specialty HospitalMCHC (RBC) [Mass/Vol]32.3 g/dL30.5 - 36.0 g/dLSelect Specialty HospitalMCV (RBC) [Entitic vol]96.4 fL 80.0 - 100.0 fLSelect Specialty HospitalMonocytes/100 WBC (Bld)14.1 %[facility] Neutrophils/100 WBC (Bld)76.2 %[facility] HospitalRBC (Bld) [#/Vol]2.25 10*6/uLLow 4.20 - 6.00 m/uLSelect Specialty HospitalNo Panel Informationon 14-53-9741Ebuikxglbavfym and review of laboratory resultsAbnoDivine Savior Healthcare B-HYDROXYBUTYRATEon 39-31-9785Aohc hydroxybutyrate [Moles/Vol]0.2 mmol/LNINF - 0.28 mmol/LCleveland ClinicInterpretation and review of laboratory resultsNormal [facility] W Auto Differential panel (Bld)on 88-57-5040Gfdfbmrfa (Bld) [#/Vol]0.03 10*3/NIAvita Health SystemDifferential cell count method Nom (Bld) AutoCleveland ClinicEosinophils (Bld) [#/Vol]0.33 10*3/uLNIAvita Health System Immature granulocytes (Bld) [#/Vol]0.07 10*3/[facility] HospitalImmature granulocytes/100 WBC (Bld)0.6 %Parkwood HospitalLymphocytes (Bld) [#/Vol]0.29 10*3/uLLowAmarillo ClinicMonocytes (Bld) [#/Vol]1.53 10*3/uLHighNINFCleveland ClinicNeutrophils (Bld) [#/Vol]8.81 10*3/uLHighAmarillo ClinicNucleated RBC (Bld) [#/Vol]NINFCleveland ClinicNucleated RBC/100 WBC (Bld) [Ratio]0 %/100 WBC [place] ClinicPlatelet mean volume (Bld) [Entitic vol]9 fL9.0 - 12.7 fL [place] ClinicPlatelets (Bld) [#/Vol]481 10*3/uLSt. Vincent HospitalWBC (Bld) [#/Vol]11.06 10*3/uLSt. Vincent HospitalCCF CBC W AUTO DIFF BLDon 08-66-3960WOC BASOPHILS # BLD AUTO0.03NINorthcrest Medical Center DIFFERENTIAL METHOD BLDAutoNOMS Henry County HospitalF EOSINOPHIL # BLD AUTO0.33NIParkwest Medical CenterF LYMPHOCYTES # BLD AUTO0.29[facility] MONOCYTES # BLD AUTO1.53HighNIParkwest Medical CenterF NEUTROPHILS # BLD AUTO8.81[facility] HospitalF NRBC # BLD AUTO<0.01NINorthcrest Medical Center NRBC/100 WBC BLD-RTO0/100 WBCFreeman Cancer Institute PLATELET # BLD [id number] Clinic PMV BLD AUTO9 fL9.0 - 12.7 fLMercy hospital springfieldF WBC # BLD AUTO11.06[facility] GRANULOCYTES # BLD AUTO0.07NISt. Johns & [facility] GRANULOCYTES/LEUK NFR BLD AUTO0.6 %NOMS HealthcareSpecimen Type: BLOOD SPECIMEN Ordering Facility: [facility] Address: [address] [place] [address] Original Ordering Provider: CAMILA ANDERSENaboratory - Hematology and Cell countson 53-83-5429Rxqfxabdi/100 WBC (Bld)0.3 %[facility] Eosinophils/100 WBC (Bld)3 %NOMS HealthcareErythrocyte distribution width (RBC) [Ratio]15.9 %High11.5 - 15.0 %NOMS HealthcareHematocrit (Bld) [Volume fraction] 21.9 %Low39.0 - 51.0 %[facility]OMS HealthcareHemoglobin (Bld) [Mass/Vol]7.1 g/dLLow13.0 - 17.0 g/dLSelect Specialty HospitalLymphocytes/100 WBC (Bld)2.6 %[facility]'s Summit HospitalH (RBC) [Entitic mass]31 pg26.0 - 34.0 pgLee's Summit HospitalHC (RBC) [Mass/Vol]32.4 g/dL 30.5 - 36.0 g/dLLee's Summit HospitalV (RBC) [Entitic vol]95.6 fL80.0 - 100.0 fLSelect Specialty HospitalMonocytes/100 WBC (Bld)13.8 %[facility] HospitalNeutrophils/100 WBC (Bld) 79.7 %[facility] HospitalRBC (Bld) [#/Vol]2.29 10*6/uLLow4.20 - 6.00 m/uLCASTLEVIEW HOSPITAL HealthcareLactate (Bld) [Moles/Vol]on 57-85-5535Xeykwdvoetvonn and review of laboratory resultsAbnormalCleveland ClinicLactate [Moles/Vol]0.4 mmol/LLow0.5 - 2.2 mmol/LCleveland ClinicAmarillo ClinicMAGNESIUMon 62-20-6892Qbkxnfgcw [Mass/Vol]1.5 mg/dLLow1.7 - 2.3 mg/dLParkwood HospitalNo Panel Informationon 48-97-1776Fzeeaokkfomxfz and review of laboratory resultsAbnormalCleveland [facility] ClinicInterpretation and review of laboratory resultsAbnormal [facility] HealthcareRenal function 2000 panelon 39-48-8283Pvxuzgf [Mass/Vol]2.3 g/dLLow3.9 - 4.9 g/dLParkwood HospitalAnion gap [Moles/Vol]11 mmol/L8 - 15 mmol/LCleveland ClinicCalcium [Mass/Vol]7.9 mg/dLLow8.5 - 10.2 mg/dLAmarillo ClinicChloride [Moles/Vol]102 mmol/L98 - 107 mmol/LCleveland ClinicCO2 [Moles/Vol]20 mmol/LLow22 - 30 mmol/LCleveland ClinicCreatinine [Mass/Vol]1.11 mg/dL0.73 - 1.22 mg/dLAmarillo ClinicGFR/1.73 sq M.predicted among non-blacks MDRD (S/P/Bld) [Vol rate/Area]71 mL/min/{1.73_m2}- PINF [facility] on above:Estimated Glomerular Filtration Rate (eGFR) is calculated using the 2020 CKD-EPI creatinine equation. This equation utilizes serum creatinine, sex, and age as parameters. The creatinine assay has traceable calibration to isotope dilution-mass spectrometry. Refer to KDIGO guidelines for clinical interpretation. In patients with unstable renal function, e.g. those with acute kidney injury, the eGFRmay not accurately reflect actual GFR.Glucose [Mass/Vol]110 mg/tTDbkd70 - 99 mg/dLSelect Medical Specialty Hospital [facility] [place] on above:The [place] Diabetes Association (ADA) provides guidance for cutoff values for fasting glucose andrandom glucose. The ADA defines fasting as no [...] Standards of Medical Care in Diabetes 2016, [place] Diabetes [employer]. Diabetes Care. 2016.39(Suppl 1). Phosphate [Mass/Vol]3.6 mg/dL2.7 - 4.8 mg/dLParkwood HospitalPotassium [Moles/Vol]4.6 mmol/L3.7 - 5.1 mmol/LCleveland ClinicSodium [Moles/Vol]133 mmol/WVuj906 - 144 mmol/LCleveland ClinicUrea nitrogen [Mass/Vol]9 mg/dL9 - 24 mg/dLSCCI Hospital Lima-REACTIVE PROTEINon 72-09-6681SWK [Mass/Vol]24.7 mg/dLHigh NINF - 0.9 mg/dLSumma Health Barber[facility] Campus W Auto Differential panel (Bld)on 10-03-2024 Basophils (Bld) [#/Vol]0.03 10*3/uLNINFParkwood HospitalDifferential cell count method Nom (Bld)AutoCleveland ClinicEosinophils (Bld) [#/Vol]0.22 10*3/uLNINF Parkwood HospitalImmature granulocytes (Bld) [#/Vol]0.21 10*3/uLHighNIAvita Health SystemImmature granulocytes/100 WBC (Bld)1.9 %Parkwood HospitalLymphocytes (Bld) [#/Vol]0.24 10*3/uLLowParkwood HospitalMonocytes (Bld) [#/Vol]1.37 10*3/uLHigh NINFCleveldosher memorial hospital ClinicNeutrophils (Bld) [#/Vol]9.23 10*3/uLHighParkwood Hospital Nucleated RBC (Bld) [#/Vol]NINFCGeorgetown Behavioral HospitalNucleated RBC/100 WBC (Bld) [Ratio]0 %/100 WBCParkwood HospitalPlatelet mean volume (Bld) [Entitic vol]9.2 fL 9.0 - 12.7 fLCleveland ClinicPlatelets (Bld) [#/Vol]489 10*3/uLSt. Vincent HospitalWBC (Bld) [#/Vol]11.3 10*3/uLMansfield Hospital CBC W AUTO DIFF BLDon 95-80-9874JLC BASOPHILS # BLD AUTO0.03NINorthcrest Medical Center DIFFERENTIAL METHOD BLDAutoNOMChildren's [facility] EOSINOPHIL # BLD AUTO0.22[facility] LYMPHOCYTES # BLD AUTO0.24[facility] MONOCYTES # BLD AUTO1.37High [facility] NEUTROPHILS # BLD AUTO9.23[facility] NRBC # BLD AUTO<0.01NINorthcrest Medical Center NRBC/100 WBC BLD-RTO0/100 WBCSelect Specialty Hospital CC PLATELET # BLD [id number] Clinic PMV BLD AUTO9.2 fL9.0 - 12.7 fL [facility] WBC # BLD AUTO11.3HMayo Clinic Health System– [facility] GRANULOCYTES # BLD AUTO0.21HighNISt. Johns & [facility] GRANULOCYTES/LEUK NFR BLD AUTO1.9 %[facility] HospitalSpecimen Type: BLOOD SPECIMEN Ordering Facility: [facility] Address: [address] [place] [address] Original Ordering Provider: DAVID MYERSISYNCComprehensive metabolic 2000 [facility] 13-92-2619Jzxxkqz [Mass/Vol]2.5 g/dLLow3.9 - 4.9 g/dLAmarillo ClinicALP [Catalytic activity/Vol]188 U/LHigh38 - 113 U/LCleveland ClinicALT [Catalytic activity/Vol]15 U/L10 - 54 U/LCleveland ClinicAnion gap [Moles/Vol]15 mmol/L8 - 15 mmol/LCleveland ClinicAST [Catalytic activity/Vol]17 U/L14 - 40 U/LCleveland ClinicBilirubin [Mass/Vol]0.2 mg/dL0.2 - 1.3 mg/dLAmarillo ClinicCalcium [Mass/Vol]8 mg/dLLow8.5 - 10.2 mg/dLAmarillo ClinicChloride [Moles/Vol]100 mmol/L98 - 107 mmol/LCleveland ClinicCO2 [Moles/Vol]17 mmol/LLow22 - 30 mmol/L [facility] HospitalCreatinine [Mass/Vol]1.01 mg/dL0.73 - 1.22 mg/dLParkwood Hospital GFR/1.73 sq M.predicted among non-blacks MDRD (S/P/Bld) [Vol rate/Area]80 mL/min/{1.73_m2}- PINFCdetwiler memorial hospitaland Westbrook Medical CenterComment on above:Estimated Glomerular Filtration Rate (eGFR) is calculated using the 2020 CKD-EPI creatinine equation. This equation utilizes serum creatinine, sex, and age as parameters. The creatinine assay has traceable calibration to isotope dilution-mass spectrometry. Refer to KDIGO guidelines for clinical interpretation. In patients with unstable renal function, e.g. those with acute kidney injury, the eGFRmay not accurately reflect actual GFR.Glucose [Mass/Vol]88 mg/dL74 - 99 mg/dL Parkwood HospitalComment on above:The [place] Diabetes Association (ADA) provides guidance for cutoff values for fasting glucose andrandom glucose. The ADA defines fasting as no caloric intake for at least 8 hours. Fasting plasma gl ucose results between 100 to 125 mg/dL indicate [...] Standards of Medical Care in Diabetes 2016, [place] [employer]. Diabetes Care. 2016.39(Suppl 1). Potassium [Moles/Vol]4.7 mmol/L3.7 - 5.1 mmol/LCleveland ClinicProtein [Mass/Vol]4.7 g/dLLow6.3 - 8.0 g/dLAmarillo ClinicSodium [Moles/Vol]132 mmol/L Kwo691 - 144 mmol/LCleveland ClinicUrea nitrogen [Mass/Vol]9 mg/dL9 - 24 mg/dL Parkwood HospitalGGTon 04-42-9443Utshe glutamyl transferase [Catalytic activity/Vol]104 U/LHigh10 - 70 U/LCleveland ClinicGamma glutamyl transferase [Catalytic activity/Vol]on 35-21-0992Zrbjeukycmxptx and review of laboratory resultsAbnormalCdetwiler memorial hospitaland Adams County HospitalLaboratory - Hematology and Cell countson 45-07-4078Yoiptaztb/100 WBC (Bld)0.3 %[facility] HospitalEosinophils/100 WBC (Bld)1.9 %[facility] HospitalErythrocyte distribution width (RBC) [Ratio]15.9 % High11.5 - 15.0 %[facility] HospitalHematocrit (Bld) [Volume fraction]23.3 %Low39.0 - 51.0 %[facility] HospitalHemoglobin (Bld) [Mass/Vol]7.6 g/dLLow13.0 - 17.0 g/dL [facility] HospitalLymphocytes/100 WBC (Bld)2.1 %[facility] HospitalH (RBC) [Entitic mass]31.7 pg26.0 - 34.0 pgLee's Summit HospitalHC (RBC) [Mass/Vol]32.6 g/dL30.5 - 36.0 g/dLLee's Summit HospitalV (RBC) [Entitic vol]97.1 fL80.0 - 100.0 fLSelect Specialty HospitalMonocytes/100 WBC (Bld)12.1 %[facility] HospitalNeutrophils/100 WBC (Bld) 81.7 %[facility] HospitalRBC (Bld) [#/Vol]2.4 10*6/uLLow4.20 - 6.00 m/uLNOMS HealthcareMAGNESIUMon 15-94-9424Pybacrqtg [Mass/Vol]1.5 mg/dLLow1.7 - 2.3 mg/dL Parkwood HospitalNT PRO BNPon 21-99-2776Mtzovmfszic peptide.B prohormone N- Terminal [Mass/Vol]502 pg/mLHighNINF - 125 pg/mLCleveland ClinicNatriuretic peptide.B prohormone N-Terminal [Mass/Vol]on 74-61-1612Etufuosewhpyct and review of laboratory resultsAbnormalCCleveland Clinic Euclid HospitalNo Panel Informationon 76-29-2479Tifxplkyslxlmf and review of laboratory resultsAbnormal [facility] HospitalInterpretation and review of laboratory results AbnormalLake Regional Health System HealthcareTACROLIMUS/FK-506 BLOrdered By: Pascual Adler on 76-32-8625Hnmvjrtudw (Bld) [Mass/Vol]4.9 ng/mLLow5.0 - 20.0 ng/mLCleveland ClinicComment on above:Individualized target levels for a given patient will depend on many factors (including the type oforgan transplant, time since transplantation, concurrent medications, and other clinical factors), and should be assessed by those health care providers experienced in the management of immunosuppression. Reference ranges and high/low indicator flags are provided as general guidelines only. The treating physician must determine appropriate target levels/dosing based on the specific clinical situation. Test performed by chemiluminescent immunoassay using Lakhani Alinity i.Tacrolimus (Bld) [Mass/Vol]Ordered By: Pascual Adler on 14-51-7833Pomxiwwpzdhjcn and review of laboratory resultsAbnormalCCleveland Clinic Euclid HospitalCB panel Auto (Bld)on 87-29-6318Hfvyhbvpz RBC (Bld) [#/Vol]NINFCleveland ClinicPlatelet mean volume (Bld) [Entitic vol]9.1 fL9.0 - 12.7 fLCleveland ClinicPlatelets (Bld) [#/Vol]466 10*3/uLSt. Vincent HospitalWBC (Bld) [#/Vol]8.23 10*3/uL [facility] CBC PNL BLD AUTOon [id number] NRBC # BLD AUTO<0.01NINF [facility] PLATELET # BLD [id number] Cancer Institute PMV BLD AUTO9.1 fL9.0 - 12.7 fLFreeman Cancer Institute WBC # BLD AUTO8.23Select [facility]ty HospitalSpecimen Type: BLOOD SPECIMEN Ordering Facility: [facility] Address: [address] [place] [address] Original Ordering Provider: JONAS CHAVISERRITINon 10-02-2024 Ferritin [Mass/Vol]5605 ng/eMFmoj37.3 - 565.7 ng/mLCleveland ClinicFOLATE, SERUM on 73-85-4306Jqhwox [Mass/Vol]12.4 ng/mL4.7 - PINF ng/mLCleveland ClinicFerritin [Mass/Vol]on 62-17-5249Sjijihxnnhlite and review of laboratory resultsAbnormal [facility] ClinicIron and Iron binding capacity panelon 56-92-4068Qquahfykmafzgh and review of laboratory resultsAbnormalCleveland ClinicIron [Mass/Vol]16 ug/dLLow41 - 186 ug/dLParkwood HospitalIron binding capacity [Mass/Vol]103 ug/rBBkm279 - 386 ug/dLKing's Daughters Medical Center Ohion/TIBC [Molar ratio]15.5 %Low20.0 - 55.0 %[facility] HospitalLaboratory - Hematology and Cell countson 32-38-3354Pbqgirjmvuw distribution width (RBC) [Ratio]15.9 %High11.5 - 15.0 %[facility] HospitalHematocrit (Bld) [Volume fraction] 24.3 %Low39.0 - 51.0 %[facility] HospitalHemoglobin (Bld) [Mass/Vol]7.8 g/dLLow13.0 - 17.0 g/dLLee's Summit HospitalH (RBC) [Entitic mass]30.8 pg26.0 - 34.0 pgLee's Summit HospitalHC (RBC) [Mass/Vol]32.1 g/dL30.5 - 36.0 g/dLLee's Summit HospitalV (RBC) [Entitic vol]96 fL80.0 - 100.0 fLSelect Specialty HospitalRBC (Bld) [#/Vol]2.53 10*6/uL Low4.20 - 6.00 m/uLNOMS HealthcareNo Panel Informationon 10-02-2024 Interpretation and review of laboratory resultsNormalCleveland Adams County HospitalInterpretation and review of laboratory resultsAbnoPiedmont Medical Center - Fort Mill HealthcareTACROLIMUS/FK-506 BLOrdered By: Milagros Sosa on 10-02-2024 Tacrolimus (Bld) [Mass/Vol]6.5 ng/mL5.0 - 20.0 ng/mLCleveland ClinicComment on above:Individualized target levels for a given patient will depend on many factors (including the type oforgan transplant, time since transplantation, concurrent medications, and other clinical factors), and should be assessed by those health care providers experienced in the management of immunosuppression. Reference ranges and high/low indicator flags are provided as general guidelines only. The treating physician must determine appropriate target levels/dosing based on the specific clinical situation. Test performed by chemiluminescent immunoassay using [employer] i.Tacrolimus (Bld) [Mass/Vol]Ordered By: Milagros Sosa on 83-42-9240Kwcxgcvgvrfjvd and review of laboratory results NormalMercy Health Kings Mills HospitalVITAMIN B12on 15-86-8408Ubqzyjmmb (Vitamin B12) [Mass/Vol]655 pg/mL232 - 1245 pg/mLCleveland Westbrook Medical CenterC-REACTIVE PROTEINon 69-97-7180TOZ [Mass/Vol]15.5 mg/dLHighNINF - 0.9 mg/dLParkwood HospitalCBC W Auto Differential panel (Bld)on 81-42-2258Apbwnjlnh (Bld) [#/Vol]0.05 10*3/uLNINF Parkwood HospitalDifferential cell count method Nom (Bld)AutoCleveland [facility] Eosinophils (Bld) [#/Vol]0.18 10*3/uLNINFParkwood HospitalImmature granulocytes (Bld) [#/Vol]0.05 10*3/uLNINFParkwood HospitalImmature granulocytes/100 WBC (Bld) 0.7 %Parkwood HospitalLymphocytes (Bld) [#/Vol]0.32 10*3/uLLowParkwood Hospital Monocytes (Bld) [#/Vol]0.85 10*3/uLNINFParkwood HospitalNeutrophils (Bld) [#/Vol] 6.06 10*3/uLCleveland ClinicNucleated RBC (Bld) [#/Vol]NINThe [facility] of [facility] Nucleated RBC/100 WBC (Bld) [Ratio]0 %/100 WBCParkwood HospitalPlatelet mean volume (Bld) [Entitic vol]9.3 fL9.0 - 12.7 fLCGeorgetown Behavioral HospitalPlatelets (Bld) [#/Vol]446 10*3/uLSt. Vincent HospitalWBC (Bld) [#/Vol]7.51 10*3/uLSelect Medical Specialty Hospital - ColumbusF CBC W AUTO DIFF BLDon 59-75-6359JXV BASOPHILS # BLD AUTO0.05NINorthcrest Medical Center DIFFERENTIAL METHOD BLDAutoNOMChildren's [facility]cy [facility] EOSINOPHIL # BLD AUTO0.18NINorthcrest Medical Center LYMPHOCYTES # BLD AUTO0.32LowFreeman Cancer Institute MONOCYTES # BLD AUTO0.85NINorthcrest Medical Center NEUTROPHILS # BLD AUTO6.06[facility] NRBC # BLD AUTO<0.01NINorthcrest Medical Center NRBC/100 WBC BLD-RTO0 /100 WBCFreeman Cancer Institute PLATELET # BLD [id number] Clinic PMV BLD AUTO9.3 fL9.0 - 12.7 fLFreeman Cancer Institute WBC # BLD AUTO7.51NOBarnes-Jewish [facility] GRANULOCYTES # BLD AUTO0.05NISt. Johns & Mary Specialist [facility] GRANULOCYTES/LEUK NFR BLD AUTO 0.7 %NOMS HealthcareSpecimen Type: BLOOD SPECIMEN Ordering Facility: [facility] Address: [address] [place] [address] Original Ordering Provider: SUZE GAMBLE [Mass/Vol]on 10-01-2024 Interpretation and review of laboratory resultsAbnormalCohiohealth pickering[facility] ClinicECG 12 leadon 29-38-1101Erwwhffgsij Rate : 74 BPM Atrial Rate : 74 BPM P-R Interval : 156 ms QRS Duration : 98 ms Q-T Interval : 420 ms QTC Calculation(Bazett) : 466 ms Calculated P Webb : 39 degrees Calculated R Webb : 64 degrees Calculated T Webb : 33 degrees SINUS RHYTHM WITH PREMATURE ATRIAL COMPLEXES OTHERWISE NORMAL ECG Confirmed by CAMERON OLIVAS, LUKE ([id number]) on 10/01/2024 11:21:21 AM NAME : LOYD BLANDON PID : [id number] : 1955 Gender : Male Race : ORD : [id number] Procedure Date : Sep 08 2024 15:14:27 Edit Date : Oct 01 2024 11:21:25 Diagnosis: SINUS RHYTHM WITH PREMATURE ATRIAL COMPLEXES OTHERWISE NORMAL ECG Confirmed by LUKE BARNES MD ([id number]) on 10/01/2024 11:21:21 AM Test Reason : Pre-OP Location : 80 : G100 G100-5 Overread By : LUKE BARNES MD Edited By : LUKE BARNES MD Referred By : , Acquired by : ARNALDO BANERJEEFRadiology, Radiologist, - 10/01/2024 Ventricular Rate : 74 BPM Atrial Rate : 74 BPM P-R Interval : 156 ms QRS Duration : 98 ms Q-T Interval : 420 ms QTC Calculation(Bazett) : 466 ms Calculated P Webb : 39 degrees Calculated R Webb : 64 degrees Calculated T Webb : 33 degrees SINUS RHYTHM WITH PREMATURE ATRIAL COMPLEXES OTHERWISE NORMAL ECG Confirmed by LUKE BARNES MD ([id number]) on 10/01/2024 11:21:21 AM NAME : LOYD BLANDON PID : [id number] : 1955 Gender : Male Race : ORD : [id number] Procedure Date : Sep 08 2024 15:14:27 Edit Date : Oct 01 2024 11:21:25 Diagnosis: SINUS RHYTHM WITH PREMATURE ATRIAL COMPLEXES OTHERWISE NORMAL ECG Confirmed by LUKE BARNES MD ([id number]) on 10/01/2024 11:21:21 AM Test Reason : Pre-OP Location : 80 : G100 G100-5 Overread By : LUKE BARNES MD Edited By : LUKE BARNES MD Referred By : , Acquired by : TYLER BANERJEE HealthcareVentricular Rate : 67 BPM Atrial Rate : 67 BPM P-R Interval : 156 ms QRS Duration : 92 ms Q-T Interval : 426 ms QTC Calculation(Bazett) : 450 ms Calculated P Webb : 34 degrees Calculated R Webb : 93 degrees Calculated T Webb : 39 degrees NORMAL SINUS RHYTHM RIGHT AXIS LOW VOLTAGE QRS, CONSIDER PULMONARY DISEASE, PERICARDIAL EFFUSION, OR NORMAL VARIANT BORDERLINE ECG Confirmed by BRAYAN SANTOS MD ([id number]) on 10/01/2024 9:22:14 AM NAME : LOYD BLANDON PID : [id number] : 1955 Gender : Male Race : ORD : [id number] Procedure Date : Aug 27 2024 07:31:02 [...] Referred By : , Acquired by : LISA HARRISACCFRadiology, Radiologist, - 10/01/2024 Ventricular Rate : 67 BPM Atrial Rate : 67 BPM P-R Interval : 156 ms QRS Duration : 92 ms Q-T Interval : 426 ms QTC Calculation(Bazett) : 450 ms Calculated P Webb : 34 degrees Calculated R Webb : 93 degrees Calculated T Webb : 39 degrees NORMAL SINUS RHYTHM RIGHT AXIS LOW VOLTAGE QRS, CONSIDER PULMONARY DISEASE, PERICARDIAL EFFUSION, OR NORMAL VARIANT BORDERLINE ECG Confirmed by BRAYAN SANTOS MD ([id number]) on 10/01/2024 9:22:14 AM NAME : LOYD BLANDON PID : [id number] : 1955 Gender : Male Race : ORD : [id number] Procedure Date : Aug 27 2024 07:31:02 [...] : , Acquired by : ART HARRIS [facility] 12 leadOrdered By: Radiologist Radiology on 82-87-8768ZBKL Healthcare Work Phone: [facility] [employer] Work Phone: Laboratory - Hematology and Cell countson 10-01-2024 Basophils/100 WBC (Bld)0.7 %[facility] HospitalEosinophils/100 WBC (Bld)2.4 %[facility] HospitalErythrocyte distribution width (RBC) [Ratio]16 %High11.5 - 15.0 %[facility] HospitalHematocrit (Bld) [Volume fraction]22.7 %Low39.0 - 51.0 %[facility] HospitalHemoglobin (Bld) [Mass/Vol]7.4 g/dLLow13.0 - 17.0 g/dLSelect Specialty Hospital Lymphocytes/100 WBC (Bld)4.3 %[facility] HospitalH (RBC) [Entitic mass]31.2 pg26.0 - 34.0 pgLee's Summit HospitalHC (RBC) [Mass/Vol]32.6 g/dL30.5 - 36.0 g/dLLee's Summit HospitalV (RBC) [Entitic vol]95.8 fL80.0 - 100.0 fLSelect Specialty Hospital Monocytes/100 WBC (Bld)11.3 %[facility] HospitalNeutrophils/100 WBC (Bld)80.6 %[facility] HospitalRBC (Bld) [#/Vol]2.37 10*6/uLLow4.20 - 6.00 m/uLSelect Specialty Hospital MAGNESIUMon 47-58-2583Pumlxdfno [Mass/Vol]1.7 mg/dL1.7 - 2.3 mg/dLParkwood HospitalMagnesium [Mass/Vol]on 44-18-1384Hidogoeeiaaenu and review of laboratory resultsNormalCleveland ClinicNo Panel Informationon 31-99-0626Rwobrktrd Clinic Interpretation and review of laboratory resultsAbnormalYadkin Valley Community HospitalC-REACTIVE PROTEINon 76-70-2156WAA [Mass/Vol]17.7 mg/dLHighNINF - 0.9 mg/dLParkwood HospitalCBC W Auto Differential panel (Bld)on 43-87-0537Fgespioct (Bld) [#/Vol]0.06 10*3/uLNINFParkwood HospitalDifferential cell count method Nom (Bld)AutoCleveland ClinicEosinophils (Bld) [#/Vol]0.19 10*3/uLNINFParkwood HospitalImmature granulocytes (Bld) [#/Vol]0.08 10*3/uLMarion Hospital Immature granulocytes/100 WBC (Bld)1 %[place]mar[place] ClinicLymphocytes (Bld) [#/Vol] 0.33 10*3/uLLowAmarillo ClinicMonocytes (Bld) [#/Vol]0.87 10*3/uLHighNINF [place] ClinicNeutrophils (Bld) [#/Vol]6.87 10*3/uLParkwood HospitalNucleated RBC (Bld) [#/Vol]NINFCGeorgetown Behavioral HospitalNucleated RBC/100 WBC (Bld) [Ratio]0 %/100 WBCAmarillo ClinicPlatelet mean volume (Bld) [Entitic vol]9.3 fL9.0 - 12.7 fL [place] ClinicPlatelets (Bld) [#/Vol]470 10*3/uLHighParkwood HospitalWBC (Bld) [#/Vol]8.4 10*3/uLParkwood HospitalCCF CBC W AUTO DIFF BLDon 45-49-7886ETY BASOPHILS # BLD AUTO0.06NINorthcrest Medical Center DIFFERENTIAL METHOD BLDAutoNOMS [facility] EOSINOPHIL # BLD AUTO0.19NINorthcrest Medical Center LYMPHOCYTES # BLD AUTO0.33[facility] CenterF MONOCYTES # BLD AUTO0.87HighMemphis VA Medical CenterF NEUTROPHILS # BLD AUTO6.87[facility] NRBC # BLD AUTO<0.01NINorthcrest Medical Center NRBC/100 WBC BLD-RTO0/100 WBCFreeman Cancer Institute PLATELET # BLD EXEU195SsgrOXRWHorsham Clinic PMV BLD AUTO9.3 fL9.0 - 12.7 fLMercy hospital springfieldF WBC # BLD AUTO8.4NOBarnes-[facility] GRANULOCYTES # BLD AUTO0.08NICentennial Medical Center at Ashland CityM GRANULOCYTES/LEUK NFR BLD AUTO1 %NOMS HealthcareSpecimen Type: BLOOD SPECIMEN Ordering Facility: [facility] Address: [address] [place] [address] Original Ordering Provider: DAVID BRAVOCYTOMEGALOVIRUS (CMV) DNA, QUANTITATIVE PCR, [facility] 88-25-8161DSB DNA JESSICA+probe [#/Vol][facility] CMV DNA JESSICA+probe [Log #/Vol]Parkwood HospitalCMV DNA JESSICA+probe Qn (P)Detected AbnormalNot DetectedParkwood HospitalInterpretation and review of laboratory resultsAbnormalCGeorgetown Behavioral Hospitalcoba CMV is an in vitro nucleic acid amplification test for the quantitation of cytomegalovirus (CMV) DNA in human EDTA plasma. The linear range of the assay is 34.5 to 10,000,000 IU/mL (1.54 - 7.00log IU/mL). The lower limit of detection of the assay is 34.5 IU/mL. Cent[place]prehensive metabolic 2000 panelon 09-30-2024 Albumin [Mass/Vol]2.4 g/dLLow3.9 - 4.9 g/dLAmarillo ClinicALP [Catalytic activity/Vol]115 U/LHigh38 - 113 U/LCleveland ClinicALT [Catalytic activity/Vol] 11 U/L10 - 54 U/LCleveland ClinicAnion gap [Moles/Vol]10 mmol/L8 - 15 mmol/L Parkwood HospitalAST [Catalytic activity/Vol]11 U/LLow14 - 40 U/LClevelOhioHealth Shelby Hospital Bilirubin [Mass/Vol]0.2 mg/dL0.2 - 1.3 mg/dLParkwood HospitalCalcium [Mass/Vol] 8.3 mg/dLLow8.5 - 10.2 mg/dLParkwood HospitalChloride [Moles/Vol]103 mmol/L98 - 107 mmol/LCdetwiler memorial hospitaland ClinicCO2 [Moles/Vol]22 mmol/L22 - 30 mmol/LCleveland [facility] Creatinine [Mass/Vol]0.88 mg/dL0.73 - 1.22 mg/dLParkwood HospitalGFR/1.73 sq M.predicted among non-blacks MDRD (S/P/Bld) [Vol rate/Area]92 mL/min/{1.73_m2}- PINThe University of Toledo Medical CenterComment on above:Estimated Glomerular Filtration Rate (eGFR) is calculated using the 2020 CKD-EPI creatinine equation. This equation utilizes serum creatinine, sex, and age as parameters. The creatinine assay has traceable calibration to isotope dilution-mass spectrometry. Refer to KDIGO guidelines for clinical interpretation. In patients with unstable renal function, e.g. those with acute kidney injury, the eGFRmay not accurately reflect actual GFR.Glucose [Mass/Vol]85 mg/dL74 - 99 mg/dLSelect Medical Specialty Hospital - [facility] on above:The [place] [employer] (ADA) provides guidance for cutoff values for fasting glucose andrandom glucose. The ADA defines fasting as no [...] Standards of Medical Care in Diabetes 2016, [place] [employer]. Diabetes Care. 2016.39(Suppl 1). Potassium [Moles/Vol]4.4 mmol/L3.7 - 5.1 mmol/LCleveland ClinicProtein [Mass/Vol]4.6 g/dLLow6.3 - 8.0 g/dLAmarillo ClinicSodium [Moles/Vol]135 mmol/L Vee761 - 144 mmol/LCleveland ClinicUrea nitrogen [Mass/Vol]11 mg/dL9 - 24 mg/dL [facility] 12 leadon 20-12-2514Rxmpvuqwpkl Rate : 88 BPM Atrial Rate : 88 BPM P-R Interval : 118 ms QRS Duration : 86 ms Q-T Interval : 396 ms QTC Calculation(Bazett) : 479 ms Calculated P Webb : -11 degrees Calculated R Webb : 43 degrees Calculated T Webb : 24 degrees SINUS RHYTHM WITH FREQUENT PREMATURE ATRIAL COMPLEXES IN A PATTERN OF BIGEMINY NONSPECIFIC ST ABNORMALITY ABNORMAL ECG Confirmed by IGNACIO PARDO MD ([id number]) on 09/30/2024 10:51:05 PM NAME : LOYD BLANDON PID : [id number] : 1955 Gender : Male Race : ORD : [id number] Procedure Date : Sep 01 2024 14:30:15 Edit Date : Sep 30 2024 22:51:07 Diagnosis: SINUS RHYTHM WITH FREQUENT PREMATURE ATRIAL COMPLEXES IN A PATTERN OF BIGEMINY NONSPECIFIC ST ABNORMALITY ABNORMAL ECG Confirmed by IGNACIO PARDO MD ([id number]) on 09/30/2024 10:51:05 PM Test Reason : BPX5 Location : 80 : G100 G100-34 Overread By : IGNACIO PARDO MD Edited By : IGNACIO PARDO MD Referred By : , Acquired by : GABRIELA PEREZFRadiology, RadiologistMD - 09/30/2024 Ventricular Rate : 88 BPM Atrial Rate : 88 BPM P-R Interval : 118 ms QRS Duration : 86 ms Q-T Interval : 396 ms QTC Calculation(Bazett) : 479 ms Calculated P Webb : -11 degrees Calculated R Webb : 43 degrees Calculated T Webb : 24 degrees SINUS RHYTHM WITH FREQUENT PREMATURE ATRIAL COMPLEXES IN A PATTERN OF BIGEMINY NONSPECIFIC ST ABNORMALITY ABNORMAL ECG Confirmed by IGNACIO PARDO MD ([id number]) on 09/30/2024 10:51:05 PM NAME : LOYD BLANDON PID : [id number] : 1955 Gender : Male Race : ORD : [id number] Procedure Date : Sep 01 2024 14:30:15 Edit Date : Sep 30 2024 22:51:07 Diagnosis: SINUS RHYTHM WITH FREQUENT PREMATURE ATRIAL COMPLEXES IN A PATTERN OF BIGEMINY NONSPECIFIC ST ABNORMALITY ABNORMAL ECG Confirmed by IGNACIO PARDO MD ([id number]) on 09/30/2024 10:51:05 PM Test Reason : BPX5 Location : 80 : G100 G100-34 Overread By : IGNACIO PARDO MD Edited By : IGNACIO PARDO MD Referred By : , Acquired by : RACHEL PEREZ [facility] 12 leadOrdered By: Radiologist Radiology on 35-84-5391BPTG [employer] Work Phone: ecG 12-LEADon 10-28-9568Bissbtodmti Rate : 68 BPM Atrial Rate : 68 BPM P-R Interval : 118 ms QRS Duration : 80 ms Q-T Interval : 392 ms QTC Calculation(Bazett) : 416 ms Calculated P Webb : 15 degrees Calculated R Webb : 16 degrees Calculated T Webb : 17 degrees NORMAL SINUS RHYTHM WITH SINUS ARRHYTHMIA Confirmed by NEGRO SLATER MD ([id number]) on 09/30/2024 9:46:56 PM NAME : LOYD BLANDON PID : [id number] : 1955 Gender : Male Race : ORD : [id number] Procedure Date : Sep 29 2024 17:07:01 Edit Date : Sep 30 2024 21:46:57 Diagnosis: NORMAL SINUS RHYTHM WITH SINUS ARRHYTHMIA Confirmed by NEGRO SLATER MD ([id number]) on 09/30/2024 9:46:56 PM Test Reason : Left chest pain - feels more like muscular pain, no radiation, started 3 days a Location : 519 : SMAV Overread By : NEGRO SLATER MD Edited By : NEGRO SLATER MD Referred By : , Acquired by : ALAN ISRAEL RN,CCFRadiology, Radiologist, MD - 09/30/2024 Ventricular Rate : 68 BPM Atrial Rate : 68 BPM P-R Interval : 118 ms QRS Duration : 80 ms Q-T Interval : 392 ms QTC Calculation(Bazett) : 416 ms Calculated P Webb : 15 degrees Calculated R Webb : 16 degrees Calculated T Webb : 17 degrees NORMAL SINUS RHYTHM WITH SINUS ARRHYTHMIA Confirmed by NEGRO SLATER MD ([id number]) on 09/30/2024 9:46:56 PM NAME : LOYD BLANDON PID : [id number] : 1955 Gender : Male Race : ORD : [id number] Procedure Date : Sep 29 2024 17:07:01 Edit Date : Sep 30 2024 21:46:57 Diagnosis: NORMAL SINUS RHYTHM WITH SINUS ARRHYTHMIA Confirmed by NEGRO SLATER MD ([id number]) on 09/30/2024 9:46:56 PM Test Reason : Left chest pain - feels more like muscular pain, no radiation, started 3 days a Location : 519 : SMAV Overread By : NEGRO SLATER MD Edited By : NEGRO SLATER MD Referred By : , Acquired by : ALAN ISRAEL RN, [facility] HealthcareEC 12-LEADOrdered By: Radiologist Radiology on 48-89-1593LLTM [employer] Work Phone: ecg COMPLETEon 67-04-5809Eomyie Znhw29XOOSpmxgctyh ClinicCalculated P Yccx5grdggkaNfiponueo ClinicCalculated R Emzg75zxzhcno Barth ClinicCalculated T Inxh81ugmbnxnHtsntbguw ClinicP-R Dfcimwmw651 ms Barth ClinicQRS Boyfnmda70 msCleveland ClinicQT Ckynesyt987 msCleveland ClinicQTC Calculation (Bazett)430 msCleveland ClinicVentricular Iwux36RYI [place] ClinicNORMAL SINUS RHYTHM LOW VOLTAGE QRS, CONSIDER PULMONARY DISEASE, PERICARDIAL EFFUSION, OR NORMAL VARIANT BORDERLINE ECG Confirmed by NEGRO SLATER MD ([id number]) on 09/30/2024 9:47:02 PMHEART AND VASCULAR INSTITUTENAME : LOYD BLANDON PID : [id number] : 1955 Gender : Male Race : ORD : Procedure Date : Sep 29 2024 17:07:42 Edit Date : Sep 30 2024 21:47:07 Diagnosis: NORMAL SINUS RHYTHM LOW VOLTAGE QRS, CONSIDER PULMONARY DISEASE, PERICARDIAL EFFUSION, OR NORMAL VARIANT BORDERLINE ECG Confirmed by NEGRO SLATER MD ([id number]) on 09/30/2024 9:47:02 PM Test Reason : Location : [address] [place] [address] Overread By : NEGRO SLATER MD Edited By : NEGRO SLATER MD Referred By : , Acquired by : ALAN ISRAEL RN,[facility]ART AND VASCULAR INSTITUTEAmarillo ClinicAtrial Apsv74QSHRzeajupzv ClinicCalculated P Ztot03haffdsjCnkcmsiha ClinicCalculated R Jijn52qfibbirLnsqdyxkr ClinicCalculated T Nbsg79phpiftcPenqrvtvg ClinicP-R Megrmvqe233 msCleveland ClinicQRS Blmpnqgs04 msCleveland ClinicQT Ulyglyid628 ms Barth ClinicQTC Calculation (Bazett)416 msCleveland ClinicVentricular Rate68 BPMClewilson health ClinicNORMAL SINUS RHYTHM WITH SINUS ARRHYTHMIA Confirmed by NEGRO SLATER MD ([id number]) on 09/30/2024 9:46:56 PMHEART AND VASCULAR INSTITUTENAME : LOYD BLANDON PID : [id number] : 1955 Gender : Male Race : ORD : [id number] Procedure Date : Sep 29 2024 17:07:01 Edit Date : Sep 30 2024 21:46:57 Diagnosis: NORMAL SINUS RHYTHM WITH SINUS ARRHYTHMIA Confirmed by NEGRO SLATER MD ([id number]) on 09/30/2024 9:46:56 PM Test Reason : Left chest pain - feels more like muscular pain, no radiation, started 3 days a Location : [facility] : SMAV Overread By : NEGRO SLATER MD Edited By : NEGRO SLATER MD Referred By : , Acquired by : ALAN ISRAEL RN,HEART AND VASCULAR INSTITUTEParkwood HospitalECG01on 36-50-0096Ragbuqqgifc Rate : 71 BPM Atrial Rate : 71 BPM P-R Interval : 128 ms QRS Duration : 76 ms Q-T Interval : 396 ms QTC Calculation(Bazett) : 430 ms Calculated P Webb : 6 degrees Calculated R Webb : 19 degrees Calculated T Webb : 23 degrees NORMAL SINUS RHYTHM LOW VOLTAGE QRS, CONSIDER PULMONARY DISEASE, PERICARDIAL EFFUSION, OR NORMAL VARIANT BORDERLINE ECG Confirmed by NEGRO SLATER MD ([id number]) on 09/30/2024 9:47:02 PM NAME : LOYD BLANDON PID : [id number] : 1955 Gender : Male Race : ORD : Procedure Date : Sep 29 2024 17:07:42 Edit Date : Sep 30 2024 21:47:07 Diagnosis: NORMAL SINUS RHYTHM LOW VOLTAGE QRS, CONSIDER PULMONARY DISEASE, PERICARDIAL EFFUSION, OR NORMAL VARIANT BORDERLINE ECG Confirmed by NEGRO SLATER MD ([id number]) on 09/30/2024 9:47:02 PM Test Reason : Location : 519 : SMAV Overread By : NEGRO SLATER MD Edited By : NEGRO SLATER MD Referred By : , Acquired by : ALAN ISRAEL RN,CCFRadiology, Radiologist, MD - 09/30/2024 Ventricular Rate : 71 BPM Atrial Rate : 71 BPM P-R Interval : 128 ms QRS Duration : 76 ms Q-T Interval : 396 ms QTC Calculation(Bazett) : 430 ms Calculated P Webb : 6 degrees Calculated R Webb : 19 degrees Calculated T Webb : 23 degrees NORMAL SINUS RHYTHM LOW VOLTAGE QRS, CONSIDER PULMONARY DISEASE, PERICARDIAL EFFUSION, OR NORMAL VARIANT BORDERLINE ECG Confirmed by NEGOR SLATER MD ([id number]) on 09/30/2024 9:47:02 PM NAME : LOYD BLANDON PID : [id number] : 1955 Gender : Male Race : ORD : Procedure Date : Sep 29 2024 17:07:42 Edit Date : Sep 30 2024 21:47:07 Diagnosis: NORMAL SINUS RHYTHM LOW VOLTAGE QRS, CONSIDER PULMONARY DISEASE, PERICARDIAL EFFUSION, OR NORMAL VARIANT BORDERLINE ECG Confirmed by NEGRO SLATER MD ([id number]) on 09/30/2024 9:47:02 PM Test Reason : Location : 519 : SMAV Overread By : NEGRO SLATER MD Edited By : NEGRO SLATER MD Referred By : , Acquired by : ALAN ISRAEL RN, [facility] HospitalZrlynoqrqaNJE94Irtyove By: Radiologist Radiology on 06-83-8742CBRQSelect Specialty Hospital Work Phone: GGT[employer] 67-39-7836Evqfx glutamyl transferase [Catalytic activity/Vol]81 U/LHigh10 - 70 U/LCleveland ClinicGamma glutamyl transferase [Catalytic activity/Vol]on 64-14-0557Lpuokcgdcutxhk and review of laboratory resultsAbnormalCleveland Adams County HospitalLaboratory - Hematology and Cell countson 54-35-6663Fclvjuayf/100 WBC (Bld)0.7 %[facility] HospitalEosinophils/100 WBC (Bld)2.3 %[facility] HospitalErythrocyte distribution width (RBC) [Ratio]16.1 % High11.5 - 15.0 %[facility] HospitalHematocrit (Bld) [Volume fraction]25.5 %Low39.0 - 51.0 %[facility] HospitalHemoglobin (Bld) [Mass/Vol]8.1 g/dLLow13.0 - 17.0 g/dL [facility] HospitalLymphocytes/100 WBC (Bld)3.9 %[facility]'s Summit HospitalH (RBC) [Entitic mass]31.2 pg26.0 - 34.0 pgLee's Summit HospitalHC (RBC) [Mass/Vol]31.8 g/dL30.5 - 36.0 g/dLLee's Summit HospitalV (RBC) [Entitic vol]98.1 fL80.0 - 100.0 fLSelect Specialty HospitalMonocytes/100 WBC (Bld)10.4 %[facility] HospitalNeutrophils/100 WBC (Bld) 81.7 %[facility] HospitalRBC (Bld) [#/Vol]2.6 10*6/uLLow4.20 - 6.00 m/uLSelect Specialty HospitalMAGNESIUMon 54-13-9989Kqokexfwm [Mass/Vol]1.6 mg/dLLow1.7 - 2.3 mg/dL Parkwood HospitalNT PRO BNPon 16-42-0737Avufepkdlfk peptide.B prohormone N- Terminal [Mass/Vol]493 pg/mLHighNINF - 125 pg/mLClevelOhioHealth Shelby HospitalNatriuretic peptide.B prohormone N-Terminal [Mass/Vol]on 88-26-9633Iuozderylmxhov and review of laboratory resultsAbnormalCdetwiler memorial hospitaland Adams County HospitalNo Panel Informationon 63-47-1894Kjzofkyzxkemsa and review of laboratory resultsAbnormal [facility] HospitalInterpretation and review of laboratory results AbnormalNOMS Wilson HealthNOIL HealthcareTACROLIMUS/FK-506 BLOrdered By: Julia Fabian on [id number] (Bld) [Mass/Vol]4.8 ng/mLLow5.0 - 20.0 ng/mL Parkwood HospitalComment on above:Individualized target levels for a given patient will depend on many factors (including the type oforgan transplant, time since transplantation, concurrent medications, and other clinical factors), and should be assessed by those health care providers experienced in the management of immunosuppression. Reference ranges and high/low indicator flags are provided as general guidelines only. The treating physician must determine appropriate target levels/dosing based on the specific clinical situation. Test performed by chemiluminescent immunoassay using [employer] i.Tacrolimus (Bld) [Mass/Vol]Ordered By: Julia Fabian on 37-18-3275Eemtbyldoafmxe and review of laboratory resultsAbnormalCleveland [facility] Panel Informationon 40-16-4015Fpmpevdnp Study observation (narrative)[facility] BACTERIA WND CULTon [id number] BACTERIA WND CULT CULTURE, WOUND: No growth NOMS HealthcareCCF BACTERIA WND CULT GRAM STAIN: No organisms seen NOMS HealthcareCCF BACTERIA WND CULTNo Polymorphonuclear LeukocytesNOMS HealthcareOriginal Ordering Provider: AGY HICKEY HealthcareCCF BACTERIA FLD CULTon [id number] BACTERIA FLD CULT CULTURE, BODY FLD: No growth NOMS HealthcareCCF BACTERIA FLD CULT GRAM STAIN: No organisms seen N[facility]S HealthcareCCF BACTERIA FLD CULTNo Polymorphonuclear LeukocytesNOMS HealthcareCCF BACTERIA FLD CULTGram stain from primary specimenNOMS HealthcareOriginal Ordering Provider: WESTLEYVELIA WENCESLAO AUTUMN CONNELLFreeman Health SystemF BACTERIA SPEC ANAEROBE CULTon [id number] BACTERIA SPEC ANAEROBE CULT CULTURE, ANAEROBE: Negative for anaerobes. [facility] HealthcareOriginal Ordering Provider: KATHY ANG [facility]F FLUABV+SARS-COV-2+RSV PNL RESP JESSICA+PROBEon 82-61-0631XRN FLUABV+SARS-COV-2+RSV PNL RESP JESSICA+PROBE INFLUENZA A RNA: Not detected [facility] FLUABV+SARS-COV-2+RSV PNL RESP JESSICA+PROBE INFLUENZA B RNA: Not detected [facility] FLUABV+SARS-COV-2+RSV PNL RESP JESSICA+PROBE RESPIRATORY SYNCYTIAL VIRUS (RSV) RNA: Not detected [facility] HospitalOriginal Ordering Provider: ROSALBA RUELAS [facility] HealthTISS PATH BX REPORTon [id number] DISCLAIMERNOMS HealthcareComment on above:Laboratory Developed Test (LDT) Disclaimer: Performance characteristics of immunohistochemical, immunofluorescent, and chromogenic in-situ hybridization tests have been determined by the performing laboratory within [facility]'s [facility] Pathology and Laboratory Medicine Department ([facility], [facility], [facility], [facility], [facility], [facility], or [facility]) in a manner consistent with CLIA requirements. One or more of these tests may not have been cleared or approved by the FDA. RT-PLM is regulated under CLIA as qualified to perform high- complexity testing. These tests are used for clinical purposes. These should not be regarded asinvestigational or for research. Positive and negative controls stain appropriately. [facility] CASE REPORTNOMS HealthcareComment on above:Surgical Pathology Report Case: [id number] Authorizing Provider: Thomas Khan MD Collected: 09/02/2024 11:43 AM Ordering Location: [place] [address] Received: 09/02/2024 05:29 PM Pathologist: Cali Breen MD Specimen: Colon, Descending, Polyp, descending colon polyp; r/o adenoma [facility] FINAL DIAGNOSISNOMS HealthcareComment on above:Descending colon polyp, biopsy: - Polypoid granulation tissue. - Separate fragment of colonic mucosa with no diagnostic abnormality. - Negative for dysplasia. JEL 09/03/2024 at 1311 EDT [facility] FINAL PERFORMING LABCASTLEVIEW HOSPITAL HealthcareComment on above:Diagnostic interpretation performed at: [facility], [address] [place] [address] CLIA# [id number] Route Driver: Nakul Grimm MD [facility] GROSS DESCRIPTIONNOIL HealthcareComment on above:A. Colon, Descending, Polyp Received in formalin are two pieces of bazzi, soft tissue aggregating to 0.5 x 0.2 x 0.1 cm. Totally submitted in one cassette. Gross examination performed at [facility], [address] [place] [address] September 02, 2024 9:30 PM Specimen Type: TISSUE SPECIMEN Ordering Facility: [facility] Address: [address] [place] [address] Original Ordering Provider: [facility]ZWilmington Hospital DISCLAIMER NOMS HealthcareComment on above:Laboratory Developed Test (LDT) Disclaimer: Performance characteristics of immunohistochemical, immunofluorescent, and chromogenic in-situ hybridization tests have been determined by the performing laboratory within [facility] Pathology and Laboratory Medicine Department ([facility], [facility], [facility], [facility], [facility], [facility], or [facility]) in a manner consistent with CLIA requirements. One or more of these tests may not have been cleared or approved by the FDA. RT-PLM is regulated under CLIA as qualified to perform high- complexity testing. These tests are used for clinical purposes. These should not be regarded asinvestigational or for research. Positive and negative controls stain appropriately. [facility] CASE REPORTNOIL HealthcareComment on above:Surgical Pathology Report Case: [id number] Authorizing Provider: Giana Kingston MD Collected: 08/31/2024 09:11 AM Ordering Location: [place] [address] Received: 09/02/2024 01:36 PM Pathologist: Raymond Carranza MD Specimen: Colon, Transverse, Polyp, r/o adenoma [facility] FINAL DIAGNOSISNOIL HealthcareComment on above:A. Transverse colon, polypectomy: - Tubular adenoma. at 1252 EDT [facility] FINAL PERFORMING LABCASTLEVIEW HOSPITAL HealthcareComment on above:Diagnostic interpretation performed at: [facility], [address] [place] [address] CLIA# [id number] Route Driver: Maglai Jane MD [facility] GROSS DESCRIPTIONNOIL HealthcareComment on above:A. Colon, Transverse, Polyp Received in formalin is one piece of bazzi, soft tissue measuring 0.4 x 0.3 x 0.1 cm. Totally submitted in one cassette. Gross examination performed at [facility], [address] [place] [address] AMS September 02, 2024 4:28 PM Specimen Type: TISSUE SPECIMEN Ordering Facility: [facility] Address: [address] [place] [address] Original Ordering Provider: GIANA KINGSTONRiddle HospitalNo Panel Informationon [id number] BACTERIA BLD CULT CULTURE, BLOOD: No growth 5 days NOMS HealthcareOriginal Ordering Provider: CALI Carmen VICTOR [facility]UGOLakeview Hospital PARACENTESIS (POC) DDI USE ONLYon 33-44-5385Senwjohdn Dexoxt28cu Approving, but needs appt for additional refills.NormalUnAdena Health SystemCBC (INCLUDES DIFF/PLT)on 19-45-4715Ynlromrwl (Bld) [#/Vol]0.043 10*3/uLNormal0-200Quest DiagnosticsComment on above:Order Comment: FASTING:NO FASTING: NOPerformed By: #### [id number] #### [facility] [address], [address] [place] [address] Lens Assistant: Roland Duggan MDBasophils/100 WBC (Bld)0.7 %NormalQuest DiagnosticsComment on above:Order Comment: FASTING:NO FASTING: NOPerformed By: #### 1903 #### [facility] [address], [address] [place] [address] Lens Assistant: Roland Duggan MDEosinophils (Bld) [#/Vol]0.153 10*3/uLNormal 15-500Quest DiagnosticsComment on above:Order Comment: FASTING:NO FASTING: NOPerformed By: #### [id number] #### [facility] of [place] [address] Lens Assistant: Roland Duggan MDEosinophils/100 WBC (Bld)2.5 %NormalQuest DiagnosticsComment on above:Order Comment: FASTING:NO FASTING: NOPerformed By: #### [id number] #### [facility] of [address], [address] [place] [address] Lens Assistant: Roland Duggan MDErythrocyte distribution width (RBC) [Ratio] 13.9 %Dmyisa60.0-15.0Quest DiagnosticsComment on above:Order Comment: FASTING:NO FASTING: NOPerformed By: #### [id number] #### [facility] [place] [address] Lens Assistant: Roland Duggan MDHematocrit (Bld) [Volume fraction]32.7 %Low 38.5-50.0Quest DiagnosticsComment on above:Order Comment: FASTING:NO FASTING: NOPerformed By: #### [id number] #### [facility] [place] [address] Lens Assistant: Roland Duggan MDHemoglobin (Bld) [Mass/Vol]11.2 g/dLLow 13.2-17.1Quest DiagnosticsComment on above:Order Comment: FASTING:NO FASTING: NOPerformed By: #### [id number] #### [facility] of [address], [address] [place] [address] Lens Assistant: Roland Duggan MDLymphocytes (Bld) [#/Vol]0.342 10*3/uLLow 850-3900Quest DiagnosticsComment on above:Order Comment: FASTING:NO FASTING: NOPerformed By: #### [id number] #### [facility] of [address], [address] [place] [address] Lens Assistant: Roland Duggan MDLymphocytes/100 WBC (Bld)5.6 %NormalQuest DiagnosticsComment on above:Order Comment: FASTING:NO FASTING: NOPerformed By: #### [id number] #### [facility] [address], [address] [place] [address] Lens Assistant: Roland REYNOLDSCH (RBC) [Entitic mass]33.8 ezUgth13.0-33.0 Quest DiagnosticsComment on above:Order Comment: FASTING:NO FASTING: NOPerformed By: #### [id number] #### [facility] [place] [address] Lens Assistant: Roland REYNOLDSCHC (RBC) [Mass/Vol]34.3 g/kCKuqjnx84.0-36.0 Quest DiagnosticsComment on above:Order Comment: FASTING:NO FASTING: NOResult Comment: For adults, a slight decrease in the calculated MCHC value (in the range of 30 to 32 g/dL) is most likely not clinically significant; however, it should be interpreted with caution in correlation with other red cell parameters and the patient's clinical condition.Performed By: #### [id number] #### [facility] [place] [address] Lens Assistant: Roland Duggan MDMCV (RBC) [Entitic vol]98.8 sQQqldax66.0-100.0 Quest DiagnosticsComment on above:Order Comment: FASTING:NO FASTING: NOPerformed By: #### [id number] #### [facility] [address], [address] [place] [address] Lens Assistant: Roland Duggan MDMonocytes (Bld) [#/Vol]0.885 10*3/uLNormal 200-950Quest DiagnosticsComment on above:Order Comment: FASTING:NO FASTING: NOPerformed By: #### [id number] #### [facility] [place] [address] Lens Assistant: Rolnad Duggan MDMonocytes/100 WBC (Bld)14.5 %NormalQuest DiagnosticsComment on above:Order Comment: FASTING:NO FASTING: NOPerformed By: #### [id number] #### [facility] of [address], [address] [place] [address] Lens Assistant: Roland Tylerutrophilbelem (Bld) [#/Vol]4.679 10*3/uLNormal 1500-7800Quest DiagnosticsComment on above:Order Comment: FASTING:NO FASTING: NOPerformed By: #### [id number] #### [facility] of [address], [address] [place] [address] Lens Assistant: Rolnad Duggan MDNeutrophils/100 WBC (Bld)76.7 %NormalQuest DiagnosticsComment on above:Order Comment: FASTING:NO FASTING: NOPerformed By: #### [id number] #### [facility] of [address], [address] [place] [address] Lens Assistant: Roland Duggan MDPlatelet mean volume (Bld) [Entitic vol]10.1 fLNormal7.5-12.5Quest DiagnosticsComment on above:Order Comment: FASTING:NO FASTING: NOPerformed By: #### [id number] #### [facility] of [address], [address] [place] [address] Lens Assistant: Roland Duggan MDPlatelets (Bld) [#/Vol]147 10*3/uLNormal 140-400Quest DiagnosticsComment on above:Order Comment: FASTING:NO FASTING: NOPerformed By: #### [id number] #### [facility] of [address], [address] [place] [address] Lens Assistant: Roland Duggan MDRBC (Bld) [#/Vol]3.31 10*6/uLLow4.20-5.80Quest DiagnosticsComment on above:Order Comment: FASTING:NO FASTING: NOPerformed By: #### [id number] #### [facility] of [address] [place] [address] Lens Assistant: Roland KELLERBC (Bld) [#/Vol]6.1 10*3/uLNormal3.8-10.8 Quest DiagnosticsComment on above:Order Comment: FASTING:NO FASTING: NOPerformed By: #### [id number] #### [facility] [address], [address] [place] [address] Lens Assistant: Roland Duggan MDCT BIOPSY VERTEBRA OR FEMURon 08-06-2024* * *Final Report* * * DATE OF EXAM: Aug 06 2024 12:35PM [facility] [address] - [address] BIOPSY VERTEBRA OR FEMUR [...] with administration of agent, ends when continuous haws-ql-pumg time ends): 26 minutes. f) Patient monitoring:I [...] DESCRIBED. Attending Radiologist: Dr. Troy Franz MD Cafeteria Supervisor: Jeovany Li MD The procedure was performed by the the real estate assistant, and the attending radiologist personally supervised the entire procedure. Ward Maid: PSCPatricia Transcribe Date/Time: Aug 06 2024 12:41P Dictated by : JEOVANY LI MD This examination was interpreted and the report reviewed and electronically signed by: TROY FRANZ MD on Aug 06 2024 1:10PM EST [id number]^AGFA_IDC^SI^ACNCCFRadiology, Radiologist, - 08/06/2024 * * *Final Report* * * DATE OF EXAM: Aug 06 2024 12:35PM [facility] [address] BIOPSY VERTEBRA OR FEMUR [...] with administration of agent, ends when continuous imod-my-bxcq time ends): 26 minutes. f) Patient monitoring:I [...] DESCRIBED. Attending Radiologist: Dr. Troy Franz MD Cafeteria Supervisor: Jeovany Li MD The procedure was performed by the the real estate assistant, and the attending radiologist personally supervised the entire procedure. Ward Maid: [facility] L[facility] THE WAY HOSPITALPatricia Transcribe Date/Time: Aug 06 2024 12:41P Dictated by : JEOVANY LI MD This examination was interpreted and the report reviewed and electronically signed by: TROY FRANZ MD on Aug 06 2024 1:10PM EST [id number]^AGFA_IDC^SI^ACN [facility] HealthcareRadiology Study observation (narrative)[facility] HealthcareCT BIOPSY VERTEBRA OR FEMUROrdered By: Radiologist Radiology on 39-74-0819BMDQ Healthcare Work Phone: ccf CMP (CMP) (FOR REMOTE [facility] USE)on 82-09-3476Uyxochd [Mass/Vol]2.4 g/dLLow3.4 - 5.0 g/dLNOIL HealthcareALBUMIN GLOBULIN RATIO0.5NOIL HealthcareALP [Catalytic activity/Vol]149 U/LHigh46 - 116 U/LNOMS HealthcareALT [Catalytic activity/Vol]31 U/L16 - 63 U/LNOMS HealthcareAnion gap [Moles/Vol] 13.3 mmol/LNOMS HealthcareAST [Catalytic activity/Vol]54 U/LHigh15 - 37 U/LNOMS HealthcareBilirubin [Mass/Vol]1.5 mg/dLHigh0.2 - 1.0 mg/dLNOMS HealthcareCalcium [Mass/Vol]8.4 mg/dLLow8.5 - 10.1 mg/dLNOMS HealthcareChloride [Moles/Vol]97 mmol/LLow98 - 107 mmol/LNOMS HealthcareCO2 [Moles/Vol]24.5 mmol/L21.0 - 32.0 mmol/LNOMS HealthcareCreatinine [Mass/Vol]1.33 mg/dLHigh0.70 - 1.30 mg/dLNOMS HealthcareGFR/1.73 sq M.predicted CKD-EPI (S/P/Bld) [Vol rate/Area]>60>=60 mL/min/1.73m 2NOMS HealthcareGlobulin (S) [Mass/Vol]4.4 g/dLNOMS Healthcare Glucose [Mass/Vol]225 mg/yIBmym33 - 106 mg/dLNOIL HealthcareInterpretation and review of laboratory resultsAbnormalNOMS HealthcarePotassium [Moles/Vol]4.8 mmol/L3.5 - 5.1 mmol/LNOMS HealthcareProtein [Mass/Vol]6.8 g/dL6.4 - 8.2 g/dL NOMS HealthcareSodium [Moles/Vol]130 mmol/BKep010 - 145 mmol/LNOMS HealthcareTBH EGFR-NON AF CJJTHOMR35Hlb>=60 mL/min/1.73m 2NOMS HealthcareUrea nitrogen [Mass/Vol]17 mg/dL7.0 - 18.0 mg/dLNOIL HealthcareUrea nitrogen/Creatinine [Mass ratio]12.8 mg/mgNOMS HealthcareCLINISYNCNOU MEDICAL CENTER – [facility] HealthcareCCF CMP (CMP) (FOR REMOTE [facility] USE)on 99-07-3772Ijelcam [Mass/Vol]2.6 g/dLLow3.4 - 5.0 g/dLNOIL Healthcare ALBUMIN GLOBULIN RATIO0.6NOIL HealthcareALP [Catalytic activity/Vol]143 U/LHigh 46 - 116 U/LNOMS HealthcareALT [Catalytic activity/Vol]35 U/L16 - 63 U/LNOMS HealthcareAnion gap [Moles/Vol]12.3 mmol/LNOMS HealthcareAST [Catalytic activity/Vol]56 U/LHigh15 - 37 U/LNOMS HealthcareBilirubin [Mass/Vol]1.4 mg/dL High0.2 - 1.0 mg/dLNOMS HealthcareCalcium [Mass/Vol]9 mg/dL8.5 - 10.1 mg/dLNOMS HealthcareChloride [Moles/Vol]97 mmol/LLow98 - 107 mmol/LNOMS HealthcareCO2 [Moles/Vol]27.7 mmol/L21.0 - 32.0 mmol/LNOMS HealthcareCreatinine [Mass/Vol]1.93 mg/dLHigh0.70 - 1.30 mg/dLNOMS HealthcareGFR/1.73 sq M.predicted CKD-EPI (S/P/Bld) [Vol rate/Area]42Low>=60 mL/min/1.73m 2NOMS HealthcareGlobulin (S) [Mass/Vol]4.7 g/dLNOMS HealthcareGlucose [Mass/Vol]164 mg/rIQfam28 - 106 mg/dL NOMS HealthcareInterpretation and review of laboratory resultsAbnormalNOMS HealthcarePotassium [Moles/Vol]5 mmol/L3.5 - 5.1 mmol/LNOMS HealthcareProtein [Mass/Vol]7.3 g/dL6.4 - 8.2 g/dLNOMS HealthcareSodium [Moles/Vol]132 mmol/LLow 136 - 145 mmol/LNOMS HealthcareTBH EGFR-NON AF JBJSGMMF60Akq>=60 mL/min/1.73m 2 NOMS HealthcareUrea nitrogen [Mass/Vol]23 mg/dLHigh7.0 - 18.0 mg/dLNOIL HealthcareUrea nitrogen/Creatinine [Mass ratio]11.9 mg/mgNOMS Healthcare CLINISYNCNOMS HealthcareUS paracentesis abd w/imageon 80-73-6795GU paracentesis abd w/imagePIKE [place] [address] Ultrasound Report Signed Patient: Loyd Blandon MR#: [id number] 66 : 1955 Acct:[id number] Age/Sex: 68 / M ADM Date: 07/30/24 Loc: Room: Type: [facility] Attending Dr: Irena Johnson MD Ordering Provider: Irena Johnson MD Date of Service: 07/30/24 US/US paracentesis abd w/image: K70.31 Copies to: Irena Johnson MD ULTRASOUND-GUIDED PARACENTESIS HISTORY: Abdominal distention. FINDINGS: Anechoic free intraperitoneal fluid identified. TECHNIQUE: Informed consent was obtained. The skin entry site was prepped and draped in sterile fashion with local lidocaine administered. 5 Guinean Yueh centesis catheter was administered into the deepest fluid collection with ultrasound guidance. Return of fluid confirms adequate localization. 4.45L of straw-colored clear fluid withdrawn. The patient expressed no immediate complications and was discharged in satisfactory condition. US/US paracentesis abd w/image IMPRESSION: SUCCESSFUL ULTRASOUND-GUIDED PARACENTESIS. Impression dictated by: Albin [place]illela M.D.07/30/2024 1:21 PM Dictation Location: [place] [address] Tech: Ana So Transcribed By: ROLAND 07/30/24 1321 Dictated By: Albin [place]illela DO 07/30/24 1315 Signed By: 07/30/24 1321[facility] Physician Rkzqr69gi [id number], but needs appt for additional refills.NormalAvita Health System Ontario HospitalCCF CMP (CMP) (FOR REMOTE [facility] USE)on 04-52-7903Ghttwsf [Mass/Vol]2.5 g/dLLow3.4 - 5.0 g/dLNOMS HealthcareALBUMIN GLOBULIN RATIO0.6NOMS HealthcareALP [Catalytic activity/Vol]125 U/LHigh46 - 116 U/LNOMS HealthcareALT [Catalytic activity/Vol] 32 U/L16 - 63 U/LNOMS HealthcareAnion gap [Moles/Vol]12.3 mmol/LNOMS Healthcare AST [Catalytic activity/Vol]46 U/LHigh15 - 37 U/LNOMS HealthcareBilirubin [Mass/Vol]1.9 mg/dLHigh0.2 - 1.0 mg/dLNOMS HealthcareCalcium [Mass/Vol]8.7 mg/dL 8.5 - 10.1 mg/dLNOMS HealthcareChloride [Moles/Vol]100 mmol/L98 - 107 mmol/LNOMS HealthcareCO2 [Moles/Vol]25.5 mmol/L21.0 - 32.0 mmol/LNOMS HealthcareCreatinine [Mass/Vol]1.45 mg/dLHigh0.70 - 1.30 mg/dLNOMS HealthcareGFR/1.73 sq M.predicted CKD-EPI (S/P/Bld) [Vol rate/Area]58Low>=60 mL/min/1.73m 2N[facility]S [facility] Globulin (S) [Mass/Vol]4.3 g/dLNOMS HealthcareGlucose [Mass/Vol]102 mg/dL74 - 106 mg/dLNOMS HealthcareInterpretation and review of laboratory resultsAbnormal NOMS HealthcarePotassium [Moles/Vol]4.8 mmol/L3.5 - 5.1 mmol/LNOMS Healthcare Protein [Mass/Vol]6.8 g/dL6.4 - 8.2 g/dLNOMS HealthcareSodium [Moles/Vol]133 mmol/JIzt225 - 145 mmol/LNOMS HealthcareTBH EGFR-NON AF KACZOGZY11Lxb>=60 mL/min/1.73m 2NOMS HealthcareUrea nitrogen [Mass/Vol]23 mg/dLHigh7.0 - 18.0 mg/dLNOMS HealthcareUrea nitrogen/Creatinine [Mass ratio]15.9 mg/mgNOIL HealthcareCLINISYNCNOMS HealthcareBODY FLUID CELL COUNTOrdered By: Vonnie Parada on 65-59-3918Zbpzhuz (Unsp spec)ClearClearCleveland ClinicClarity (Unsp spec)Not IndicatedClearCohiohealth pickerington [facility]ist hospital ClinicColor (Body fld)YellowYellow [facility] HospitalColor (Body fld)Not IndicatedYellowMercy Health Clermont Hospital Manual cnt (Body fld) [#/Vol]/uLNINF - 2000 /uLShelby Memorial Hospitalpecimen source Nom (Body fld)Ascites FluidBluffton Hospital Manual cnt (Body fld) [#/Vol]71 /uL NINF - 1000 /uLMercy Health Kings Mills HospitalGuidance for paracentesis and insertion of tube of PeritoneumOrdered By: Elsy Johnson on 33-99-6992[facility] Work Phone: radiology Study observation (narrative)[facility] Work Phone: MANUAL DIFFERENTIAL, BODY FLUIDOrdered By: Billie Wilson on 14-02-7656Iiva Total Body Duumo201xnbqv countedParkwood Hospital Interpretation and review of laboratory resultsAbnormalCleveland ClinicLymph%, BF72 %High18 - 36 %Barth ClinicMacro%, BF11 %Low64 - 80 %[facility] Meso%, BF1 %0 - 2 %Barth ClinicMono%, BF11 %Barth ClinicNeut%, BF5 %High 0 - 1 %Parkwood HospitalClewilson health ClinicUS PARACENTESIS (POC) DDI USE ONLYon 16-71-3294Dhlfxgvlj Etbtso36dg 65-02-355991Coddbsaoi, but needs appt for additional refills.NormalAvita Health System Ontario HospitalCoagulation Profile on 36-45-9080hXVM Coag (Bld) [Time]32.0 iFsfdcn29.1-36.5The [facility] Physician GroupComment on above:Order Comment: STAT FOR PARAResult Comment: A hematocrit value greater than 55% may lead to inaccurate results in coagulation testing. Patients having hematocrit values >55% require a special collection tube for coagulation studies. Please contact the laboratory at [phone] for redraw instructions. PERFORMED BY: [place] [address] PATHOLOGIST INSURANCE PROCESSOR JEAN SOLIS M.D.Performed By: #### PP, PLT #### [facility] [address] [place] [address] USAINR Coag (PPP) [Relative time]1.2 {INR}NormalThe [facility] Physician [facility] HospitalComment on above:Order Comment: STAT FOR PARAResult Comment: INR Therapeutic Range A) Pre- and [...] patients with mechanical heart valves: 3 - 4.5Performed By: #### PP, PLT #### [facility] [address] [place] [address] USAPT Coag (PPP) [Time]13.6 sHigh9.0-12.9The [facility] Physician GroupComment on above:Order Comment: STAT FOR PARAResult Comment: A hematocrit value greater than 55% may lead to inaccurate results in coagulation testing. Patients having hematocrit values >55% require a special collection tube for coagulation studies. Please contact the laboratory at [phone] for redraw instructions.Performed By: #### PP, PLT #### [facility] [address] [place] [address] USAINR in Platelet poor plasma by Coagulation assayOrdered By: Irena Johnson on 37-62-5329EYH Coag (PPP) [Relative time]INR in Platelet poor plasma by Coagulation assayKettering Health Behavioral Medical CenterComment on above:INR Therapeutic Range A) Pre- and Peroperative OAT started two weeks before surgery. NOT HIP SURGERY: 1.5 - 2.5 HIP SURGERY: 2 - 3B) Primary and secondary prevention of venous THROMBOSIS: 2 - 3C) Active venous thrombosis, pulmonary embolismand prevention of recurrent venous thrombosis: 2 - 3D) Prevention of arterial thromboembolismincluding patients with mechanical heart valves: 3 - 4.5Platelet Counton 18-00-0462Gejhsturu (Bld) [#/Vol]124 10*3/hGRmp111-227Oie [facility] Physician GroupComment on above:Order Comment: STAT FOR PARAResult Comment: PERFORMED BY: [place] [address] PATHOLOGIST INSURANCE PROCESSOR JEAN SOLIS M.D.Performed By: #### PP, PLT #### [facility] [address] [place] [address] USAPlatelets Auto (Bld) [#/Vol]Ordered By: Irena Johnson on 58-53-7940Tbxbmrjli (Bld) [#/Vol]Platelets [#/volume] in Blood by Automated ugoopVcu043-086FfolzzpshKettering Health Behavioral Medical CenterProthrombin time (PT)Ordered By: Irena Johnson on 22-56-7615AN Coag (PPP) [Time]Prothrombin time (PT)High9.0-12.9 [facility] Behavioral Medical CenterComment on above:A hematocrit value greater than 55% may lead to inaccurate results in coagulation testing. Patientshaving hematocrit values >55% require a special collection tube for coagulation studies. Please contact the laboratory at [phone] for redraw instructions. US paracentesis abd w/imageon 70-97-1103AT paracentesis abd w[facility]PI[facility] [place] [address] [place] [address] Ultrasound Report Signed Patient: Loyd Blandon MR#: [id number] 66 : 1955 Acct:[id number] Age/Sex: 68 / M ADM Date: 06/19/24 Loc: Room: Type: [facility] Attending Dr: Irena Johnson MD Ordering Provider: [...] and local anesthesia with lidocaine, a 5 Guinean centesis catheter was advanced into the peritoneal cavity. Approximately 4700 mL of ascites was drained. The catheter was removed. There were no immediate complications. US/US paracentesis abd w/image IMPRESSION: SUCCESSFUL ULTRASOUND-GUIDED PARACENTESIS. Impression dictated by: Morales Alvarez Jr., D.OAshley06/19/2024 3:34 PM Dictation Location: [place] [address] Tech: Blanca Maria Isabel Transcribed By: [facility] 06/19/24 153 Dictated By: Morales Alvarez Jr, DO 06/19/24 1534 Signed By: 06/19/24 1534[facility] Physician GroupaPTT in Platelet poor plasma by Coagulation assayOrdered By: Irena Johnson on 65-08-1358sFZV Coag (PPP) [Time] Activated partial thromboplastin time (aPTT) in platelet poor plasma by coagulation a25.1-36.5FDayton Osteopathic HospitalComment on above:A hematocrit value greater than 55% may lead to inaccurate results in coagulation testing. Patientshaving hematocrit values >55% require a special collection tube for coagulation studies. Please contact the laboratory at [phone] for redraw instructions.ALL CBC WITH AUTO DIFFon 27-63-2925Hblmxsbreoe distribution width (RBC) [Ratio]14.6 %11.0 - 15.0 %[facility] Specialty HospitalHematocrit (Bld) [Volume fraction]34.7 %Low42.0 - 54.0 %[facility] Specialty HospitalHemoglobin (Bld) [Mass/Vol]11.8 g/dLLow14.0 - 18.0 g/dLSelect Specialty HospitalInterpretation and review of laboratory resultsAbnormalKindred Hospital (RBC) [Entitic mass]34.1 brXgxc16.9 - 34.0 pg [facility] HospitalHC (RBC) [Mass/Vol]34 g/dL29.9 - 35.2 g/dLLee's Summit HospitalV (RBC) [Entitic vol]100.3 eZGamj34.0 - 94.0 fLSelect Specialty HospitalPlatelet mean volume (Bld) [Entitic vol]10.8 fL9.5 - 13.5 fLNorthwest Medical Center AFL629FljTXIINorthwest Medical Center RBC3.46LowNorthwest Medical Center WBC4.3Select Specialty HospitalCLINISYNCNLiberty Hospital Cervical spine WO and W contrast Syed 06-08-2024* * *Final Report* * * DATE OF [...] tissues are normal in appearance. DIVISION OF RADIOLOGYProvider, [facility] [place] - 06/08/2024 * * *Final Report* * * DATE OF EXAM: Jun 08 2024 2:06PM [facility]BM 0298 - MRI CERVICAL SPINE WO/W [...] and assume there are 5 lumbar-type vertebrae. Ward Maid: PSCB Transcribe Date/Time: Jun 08 2024 3:55P Dictated by : BRENDA MUNOZ MD This examination was interpreted and the report reviewed and electronically signed by: BRENDA MUNOZ MD on Jun 08 2024 4:10PM [facility] Lumbar spine WO and W contrast Syed 06-08-2024* * *Final Report* * * DATE OF EXAM: Jun 08 2024 2:06PM [facility] 0304 - MRI LUMBAR SPINE WO/W IVCON [...] tissues are normal in appearance. DIVISION OF RADIOLOGYProvider, [facility] [place] - 06/08/2024 * * *Final Report* * [...] and assume there are 5 lumbar-type vertebrae. Ward Maid: [employer] Transcribe Date/Time: Jun 08 2024 3:55P Dictated by : BRENDA MUNOZ MD This examination was interpreted and the report reviewed and electronically signed by: BRENDA MUNOZ MD on Jun 08 2024 4:10PM EST [facility] HospitalRadiology Study observation (narrative)[facility] Thoracic spine WO and W contrast Syed 06-08-2024* * *Final Report* * * DATE OF EXAM: Jun 08 2024 2:06PM [facility] 0326 - MRI THORACIC SPINE WO/W IVCON [...] tissues are normal in appearance. DIVISION OF RADIOLOGYProvider, [facility] [place] - 06/08/2024 * * *Final Report* * [...] and assume there are 5 lumbar-type vertebrae. Ward Maid: PSCB Transcribe Date/Time: Jun 08 2024 3:55P Dictated by : BRENDA MUNOZ MD This examination was interpreted and the report reviewed and electronically signed by: BRENDA MUNOZ MD on Jun 08 2024 4:10PM [facility] CERVICAL SPINE WO/W IVCONon 06-08-2024* * *Final Report* * * DATE OF EXAM: Jun 08 2024 2:06PM [facility] 0298 - MRI CERVICAL SPINE WO/W IVCON [...] and assume there are 5 lumbar-type vertebrae. Ward Maid: [facility] Transcribe Date/Time: Jun 08 2024 3:55P Dictated by : BRENDA MUNOZ MD This examination was interpreted and the report reviewed and electronically signed by: BRENDA MUNOZ MD on Jun 08 2024 4:10PM EST [id number]^AGFA_IDC^SI^ACNCCFRadiology, Radiologist, - 06/08/2024 * * *Final Report* * * DATE OF EXAM: Jun 08 2024 2:06PM [facility] 0298 - MRI CERVICAL SPINE WO/W IVCON [...] and assume there are 5 lumbar-type vertebrae. Ward Maid: SRINI Transcribe Date/Time: Jun 08 2024 3:55P Dictated by : BRENDA MUNOZ MD This examination was interpreted and the report reviewed and electronically signed by: BRENDA MUNOZ MD on Jun 08 2024 4:10PM EST [id number]^AGFA_IDC^SI^ACN [facility] LUMBAR SPINE WO/W IVCONon 06-08-2024* * *Final Report* * * DATE OF EXAM: Jun 08 2024 2:06PM Q 0304 - MRI LUMBAR SPINE WO/W IVCON [...] and assume there are 5 lumbar-type vertebrae. Ward Maid: SRINI Transcribe Date/Time: Jun 08 2024 3:55P Dictated by : BRENDA MUNOZ MD This examination was interpreted and the report reviewed and electronically signed by: BRENDA MUNOZ MD on Jun 08 2024 4:10PM EST [id number]^AGFA_IDC^SI^ACNCCFRadiology, Radiologist, - 06/08/2024 * * *Final Report* * * DATE OF EXAM: Jun 08 2024 2:06PM [facility] 0304 - MRI LUMBAR SPINE WO/W IVCON [...] and assume there are 5 lumbar-type vertebrae. Ward Maid: [facility] Transcribe Date/Time: Jun 08 2024 3:55P Dictated by : BRENDA MUNOZ MD This examination was interpreted and the report reviewed and electronically signed by: BRENDA MUNOZ MD on Jun 08 2024 4:10PM EST [id number]^AGFA_IDC^SI^ACN [facility] THORACIC SPINE WO/W IVCONon 06-08-2024* * *Final Report* * * DATE OF EXAM: Jun 08 2024 2:06PM [facility] 0326 - MRI THORACIC SPINE WO/W IVCON [...] and assume there are 5 lumbar-type vertebrae. Ward Maid: [facility] Transcribe Date/Time: Jun 08 2024 3:55P Dictated by : BRENDA MUNOZ MD This examination was interpreted and the report reviewed and electronically signed by: BRENDA MUNOZ MD on Jun 08 2024 4:10PM EST [id number]^AGFA_IDC^SI^ACNCCFRadiology, Radiologist, - 06/08/2024 * * *Final Report* * * DATE OF EXAM: Jun 08 2024 2:06PM [facility] 0326 - MRI THORACIC SPINE WO/W IVCON [...] and assume there are 5 lumbar-type vertebrae. Ward Maid: [employer] Transcribe Date/Time: Jun 08 2024 3:55P Dictated by : BRENDA MUNOZ MD This examination was interpreted and the report reviewed and electronically signed by: BRENDA MUNOZ MD on Jun 08 2024 4:10PM EST [id number]^AGFA_IDC^SI^ACN [facility] Panel InformationOrdered By: Radiologist Radiology on 65-40-8057HORWSelect Specialty Hospital Work Phone: No Panel Informationon 22-46-4624ABQPPMNBAI: 1. Suboptimal examination due to motion artifact. [...] and assume there are 5 lumbar-type vertebrae. Ward Maid: [facility] Transcribe Date/Time: Jun 08 2024 3:55P Dictated by : BRENDA MUNOZ MD This examination was interpreted and the report reviewed and electronically signed by: BRENDA MUNOZ MD on Jun 08 2024 4:10PM [facility] DIVISION OF RADIOLOGYRadiology Study observation (narrative)[facility] Radiology Study observation (narrative)NOMS HealthcareCCF CMP (CMP) (FOR REMOTE [facility] USE)on 54-06-5779Tvxizqa [Mass/Vol]2.3 g/dLLow3.4 - 5.0 g/dLNOIL Healthcare ALBUMIN GLOBULIN RATIO0.5NOIL HealthcareALP [Catalytic activity/Vol]128 U/LHigh 46 - 116 U/LNOMS HealthcareALT [Catalytic activity/Vol]34 U/L16 - 63 U/LNOMS HealthcareAnion gap [Moles/Vol]11.1 mmol/LNOMS HealthcareAST [Catalytic activity/Vol]50 U/LHigh15 - 37 U/LNOMS HealthcareBilirubin [Mass/Vol]1.4 mg/dL High0.2 - 1.0 mg/dLNOMS HealthcareCalcium [Mass/Vol]8.7 mg/dL8.5 - 10.1 mg/dL NOMS HealthcareChloride [Moles/Vol]97 mmol/LLow98 - 107 mmol/LNOMS HealthcareCO2 [Moles/Vol]25 mmol/L21.0 - 32.0 mmol/LNOMS HealthcareCreatinine [Mass/Vol]1.74 mg/dLHigh0.70 - 1.30 mg/dLNOMS HealthcareGFR/1.73 sq M.predicted CKD-EPI (S/P/Bld) [Vol rate/Area]47Low>=60 mL/min/1.73m 2NOMS HealthcareGlobulin (S) [Mass/Vol]4.7 g/dLNOMS HealthcareGlucose [Mass/Vol]245 mg/pQWhcr55 - 106 mg/dL NOMS HealthcareInterpretation and review of laboratory resultsAbnormalNOMS HealthcarePotassium [Moles/Vol]5.1 mmol/L3.5 - 5.1 mmol/LNOMS HealthcareProtein [Mass/Vol]7 g/dL6.4 - 8.2 g/dLNOMS HealthcareSodium [Moles/Vol]128 mmol/EIqr307 - 145 mmol/LNOMS HealthcareTBH EGFR-NON AF MHDHNTFW20Rlh>=60 mL/min/1.73m 2NOMS HealthcareUrea nitrogen [Mass/Vol]26 mg/dLHigh7.0 - 18.0 mg/dLNOMS Healthcare Urea nitrogen/Creatinine [Mass ratio]14.9 mg/mgNOMS HealthcareCLINISYNCNOMS HealthcareNo Panel InformationOrdered By: Radiologist Radiology on 06-04-2024 [facility] [employer] Work Phone: US PELVIS LTDon 06-04-2024* * *Final Report* * * DATE OF EXAM: Jun 04 2024 11:39AM [facility] [employer] / PROCEDURE REASON: Unilateral inguinal hernia without [...] were saved to the permanent image archive. v01-03. COMPARISON: None FINDINGS: HERNIA EVALUATION: There is [...] No fat or bowel containing inguinal hernia. Ward Maid: [facility] HOSPITALPatricia Transcribe Date/Time: Jun 04 2024 1:11P Dictated by : SONNY TRAN MD This examination was interpreted and the report reviewed and electronically signed by: SONNY TRAN MD on Jun 04 2024 2:55PM EST [id number]^AGFA_IDC^SI^ACNCCFRadiology, Radiologist, - 06/04/2024 * * *Final Report* * * DATE OF EXAM: Jun 04 2024 11:39AM [facility] [employer] / PROCEDURE REASON: Unilateral inguinal hernia [...] No fat or bowel containing inguinal hernia. Ward Maid: SRINI Transcribe Date/Time: Jun 04 2024 1:11P Dictated by : SONNY TRAN MD This examination was interpreted and the report reviewed and electronically signed by: SONNY TRAN MD on Jun 04 2024 2:55PM EST [id number]^AGFA_IDC^SI^ACN [facility] HealthcareRadiology Study observation (narrative)[facility] HealthcareUS Pelvis limitedon 61-88-3756XXKGWRUWZX: Extension of pelvic ascites through the inguinal canal and distally along the spermatic cord. No fat or bowel containing inguinal hernia. Ward Maid: SRINI Transcribe Date/Time: Jun 04 2024 1:11P Dictated by : SONNY TRAN MD This examination was interpreted and the report reviewed and electronically signed by: SONNY TRAN MD on Jun 04 2024 2:55PM [facility] DIVISION OF RADIOLOGY* * *Final Report* * * DATE OF EXAM: Jun 04 2024 11:39AM [facility] 1043 - [place] [employer] / PROCEDURE REASON: Unilateral inguinal [...] INGUINAL LIGAMENT: Normal in appearance. DIVISION OF RADIOLOGYProvider, [facility] [place] - 06/04/2024 * * *Final Report* * * DATE OF EXAM: Jun 04 2024 11:39AM [facility] 1043 - US [employer] / PROCEDURE REASON: Unilateral inguinal [...] No fat or bowel containing inguinal hernia. Ward Maid: [facility] Transcribe Date/Time: Jun 04 2024 1:11P Dictated by : SONNY TRAN MD This examination was interpreted and the report reviewed and electronically signed by: SONNY TRAN MD on Jun 04 2024 2:55PM [facility] HospitalRad[facility] Study observation (narrative)[facility] HospitalBODY FLUID CELL COUNTOrdered By: Billie Wilson on 89-97-6839KDQ Manual cnt (Body fld) [#/Vol]/uLNINF - 2000 /uLShelby Memorial Hospitalpecimen source Nom (Body fld) AbdomenBluffton Hospital Manual cnt (Body fld) [#/Vol]119 /uLNINF - 1000 /uL [facility] BODY FLUID CELL COUNTon 60-28-7432PBX CLARITY SPECSlightly CloudyAbnormalClearFreeman Cancer Institute COLOR FLDYellowYelLehigh Valley Hospital - Hazelton RBC # FLD MANUAL<2000NINF - 2000 /uLNOMS HealthcareCCF SPECIMEN SOURCE FLD AbdomenFreeman Cancer Institute WBC # FLD [id number] /uLNINF - 1000 /[facility] Specimen Type: FLUID SPECIMEN Ordering Facility: [facility] Address: [address] [place] [address] Original Ordering Provider: KATHY VAUGHNCLINISYNCGuidance for paracentesis and insertion of tube of Peritoneumon 99-63-5015Xusk: Loyd Blandon Patient presents for a Paracentesis. Indication for Procedure: Ascites INFORMED CONSENT Loyd Blandon Medical Record: [id number] Procedure: Paracentesis The risks, benefits and anticipated [...] Vaughn APRN.CNP Procedure performed by Kathy Vaughn APRN.SAMPLE COLLECTOR Medication: 2% Lidocaine 10cc The patient was [...] associated with the procedure. Kathy Vaughn APRN.CNP PROVATIONGuidance for paracentesis and insertion of tube of PeritoneumOrdered By: Kathy Vaughn on 93-10-4400[facility] Work Phone: Radiology Study observation (narrative)[facility] Work Phone: Laboratory - Specimen informationOrdered By: Billie Wilson on 29-65-1383Npmcpoz (Unsp spec)Slightly CloudyAbnormalClearCleveland ClinicColor (Body fld)YellowYellowCleveland ClinicNo Panel Informationon 08-71-9976Dudxgocemzpngk and review of laboratory resultsAbHillsdale Hospital NOMS HealthcareUS PARACENTESIS (POC) DDI USE ONLYon 99-58-0621Bedokcyge ClinicXR Chest PA and Lateralon 09-77-5383WRCMNYLVUN: Moderate to large right-sided pleural effusion, increased in size compared to the prior chest radiograph exam. Adjacent opacity at the right lung base is probably due to atelectasis although superimposed pneumonia/aspiration is possible. Trace left pleural effusion. Ward Maid: PSCB Transcribe Date/Time: May 23 2024 1:39P Dictated by : MORALES CARROLL MD This examination was interpreted and the report reviewed and electronically signed by: MORALES CARROLL MD on May 23 2024 1:41PM [facility] DIVISION OF RADIOLOGY* * *Final Report* * * DATE OF [...] Clips overlie the upper abdomen. DIVISION OF RADIOLOGYProvimemorial health system [facility], [facility] [place] - 05/23/2024 * * *Final Report* * [...] pneumonia/aspiration is possible. Trace left pleural effusion. Ward Maid: SRINI Transcribe Date/Time: May 23 2024 1:39P Dictated by : MORALES CARROLL MD This examination was interpreted and the report reviewed and electronically signed by: MORALES CARROLL MD on May 23 2024 1:41PM EST [facility] HospitalRadiology Study observation (narrative)[facility]wood HospitalXR Chest PA and LateralOrdered By: Ccf Provider on 21-69-2079Oduqasuaq ClinicALL CBC WITH AUTO DIFFon 75-08-4442CUTUSFOSS ABSOLUTE AUTO0.1NOMS HealthcareBasophils/100 WBC (Bld)1.1 %0.2 - 2.0 %NOMS HealthcareEosinophils/100 WBC (Bld)5.4 %0.9 - 7.0 %NOMS HealthcareErythrocyte distribution width (RBC) [Ratio]14.2 %11.0 - 15.0 % NOMS HealthcareHematocrit (Bld) [Volume fraction]37.2 %Low42.0 - 54.0 %[facility] HealthcareHemoglobin (Bld) [Mass/Vol]12.7 g/dLLow14.0 - 18.0 g/dLNOJefferson Memorial Hospital IMMATURE GRANULOCYTES ABS AUTO0.04HighNOIL HealthcareImmature granulocytes/100 WBC (Bld)0.8 %High0.0 - 0.5 %[facility] HealthcareInterpretation and review of laboratory resultsAbnormalNOIL HealthcareLYMPHOCYTES ABSOLUTE AUTO0.7LowNOMS HealthcareLymphocytes/100 WBC (Bld)12.5 %Low20.5 - 60.0 %[facility] HospitalH (RBC) [Entitic mass]34.4 eqVbfn06.9 - 34.0 pgNOJefferson Memorial HospitalMCHC (RBC) [Mass/Vol]34.1 g/dL29.9 - 35.2 g/dLSelect Specialty HospitalMCV (RBC) [Entitic vol]100.8 jAQuhi25.0 - 94.0 fLNOIL HealthcareMONOCYTES ABSOLUTE AUTO0.8NO[facility] Healthcare Monocytes/100 WBC (Bld)14.8 %High1.7 - 12.0 %NOM HealthcareNEUTROPHILS ABSOLUTE AUTO3.4NOMS HealthcareNeutrophils/100 WBC (Bld)65.4 %43.0 - 75.0 %[facility] HealthcarePlatelet mean volume (Bld) [Entitic vol]10.5 fL9.5 - 13.5 fLNOIL HealthcareTBH EO #0.3NOMS HealthcareTBH [id number] HealthcareTB RBC3.69LowNOMS Wilson HealthTB WBC5.2NOMS HealthcareCLINISYNCNOMS HealthcareOrders Onlyon 05-67-3803Lwfibn [id number] Loyd Blandon 1955 M Date Provider Department Center 05/08/2024 1065-JOSH JANE [facility] No family history on fileNormalUniversity of Hca Houston Healthcare NorthwestOrders Only [id number] JamiaLoyd rivera 1955 M Date Provider Department Center 05/08/202442276-ANUTCRENARD HAZEL [facility] No family history on fileNormalUniversity of Hca Houston Healthcare NorthwestALBUMIN, BODY FLUIDOrdered By: Tejal Kidd on 30-60-8544Eapuwee (Body fld) [Mass/Vol]0.4 g/dLSee CommentProtestant Deaconess Hospitalment on above:Body Fluid Albumin may be used in classifying [...] 1.1 g/dL, ascites generated from conditions without portalhypertension should be considered. Reference: 1. CLSI. Analysis of Body Fluids in Clinical Chemistry Approved Guideline. CLSI document C49A. JOEL Murrell: Clinical Laboratory Standards [place]: 2007. 2. Patience URIOSTEGUI. Serum to ascites albumin gradient. UpToDate. 2015. Accessed on July 29, 2015. This test was developed, and its performance characteristics determined by the [facility] Department of Pathology and Laboratory Medicine. It has not been cleared or approved by the FDA. The [facility] Department of Pathology and Laboratory Medicine is regulated under CLIA as qualified to perform high-complexity testing. This test is used for clinical purposes. It should not be regarded as investigational or for research. AMYLASE, BODY FLUIDon 71-95-5766Ucgampn (Body fld) [Catalytic activity/Vol]12 U/LSee CommentProtestant Deaconess Hospitalment on above:PLEURAL FLUIDS: Amylase measurement in pleural fluid is considered a useful test for detecting amylase-rich pleuraleffusions, which may be caused by exudative conditions [...] characterizing tumors and should be interpreted along withother clinical and laboratory information. References: 1. Sirisha MUNIZ, Jose Roberto Guardado. Body fluid analysis: clinical utility and applicability of published studies to guide interpretation of todays laboratory testing in serous fluids. Crit Rev Clin Lab Sci, 2013;50(4-5):107-124. 2. CLSI. Analysis of Body Fluids in Clinical Chemistry; Approved Guideline. CLSI document C49-A. JOEL Murrell: Clinical Laboratory Standards [place]; 2007. 3. Riky SHAW, Mckinley RC, Rose DJ. Use of cyst fluid CEA, CA19-9, and amylase for evaluation of pancreatic lesions. Clinical Biochemistry. 2009;42:5452-4411. This test was developed, and its performance characteristics determined by the [facility] Department of Pathology and Laboratory Medicine. It has not been cleared or approved by the FDA. The [facility] Department of Pathology and Laboratory Medicine is regulated under CLIA as qualified to perform high-complexity testing. This test is used for clinical purposes. It should not be regarded as investigational or for research. Albumin (Body fld) [Mass/Vol]Ordered By: Tejal Kidd on 48-16-4790Xtjav Nom (Body fld)ASCITES FLUIDMercy Health Kings Mills HospitalAmylase (Body fld) [Catalytic activity/Vol]on 16-03-2750Tuqii Nom (Body fld)ASCITES FLUIDMercy Health Kings Mills HospitalBODY FLUID CELL COUNTOrdered By: Austin Moore on 85-53-9794Kmtisvw (Unsp spec)ClearClearCleveland ClinicClarity (Unsp spec)Not IndicatedClearCleveland ClinicColor (Body fld)YellowYellowCleveland ClinicColor (Body fld)Not IndicatedYelLakeHealth Beachwood Medical Center Manual cnt (Body fld) [#/Vol] /uLNINF - 2000 /[facility] Hospitalpecimen source Nom (Body fld)AbdomenBluffton Hospital Manual cnt (Body fld) [#/Vol]111 /uLNINF - 1000 /uLSelect Medical Specialty Hospital - YoungstownGuidance for paracentesis and insertion of tube of Peritoneumon 73-45-3245Nxvx: Loyd Hendersonenig Patient presents for a Paracentesis. Indication for Procedure: Ascites INFORMED CONSENT Loyd Blandon Medical Record: [id number] Procedure: Paracentesis The risks, benefits and anticipated [...] complications associated with the procedure. Rosalinda Benoit APRN.CNP PROVATIONParkwood HospitalRadiology Study observation (narrative)[facility] PROTEIN, BODY FLUIDon 97-10-7623Ndpmlsu (Body fld) [Mass/Vol]0.9 g/dLSee Comment [facility] HospitalComment on above:Serous fluids: Effusions are the accumulation of clinically detected fluid in any of the serous cavities. Effusions are further into transudates and exudates, which aid in determining the et iology of the effusion. Transudate: Body fluid total protein measurement < 3.0 g/dL. A ratio of serous fluid total protein to a concurrent serum total protein < 0.5 indicates a transudate. Exudate: Body fluid total protein measurement >= 3.0 g/dL. A ratio of serous fluid total proteinto a concurrent serum total protein >= 0.5 indicates an exudate. Reference: 1. CLSI. Analysis of Body Fluids in Clinical Chemistry Approved Guideline. CLSI vctgeiesH54K. JOEL Murrell: Clinical Laboratory Standards [place]: 2007. Protein (Body fld) [Mass/Vol]on 39-95-8025Wzsypegjm ClinicUS PARACENTESIS (POC) DDI USE ONLYon 82-69-5523Jbaymuybz ClinicCT Liver W contrast Syed 04-29-2024 IMPRESSION: MORPHOLOGIC FINDINGS OF CIRRHOSIS AND PORTAL HYPERTENSION. 1.0 CM LI-RADS 5/OPTN 5 LESION IN THE DOME OF SEGMENT VIII WITHOUT TUMOR THROMBUS. NO EVIDENCE OF METASTATIC DISEASE. MASSIVE ASCITES. MASSIVE RIGHT PLEURAL EFFUSION WITH AT LEAST SEGMENTAL RIGHT LUNG COLLAPSE. Ward Maid: PSCB Transcribe Date/Time: Apr 29 2024 9:30P Dictated by : MORALES ADAMS MD This examination was interpreted and the report reviewed and electronically signed by: MORALES ADAMS MD on Apr 29 2024 11:09PM [facility] DIVISION OF RADIOLOGY* * *Final Report* * * DATE OF EXAM: Apr 29 2024 5:02PM [facility] 0548 - CT LIVER W IVCON / [...] LI-RADS Category: LR-5/OPTN class 5 (definitely HCC) Plixq-mw-jxqy: absent. No other focal hepatic lesion. Biliary: [...] least) right lower lung collapse. Localizer images: Building Appraiser image shows small volume of expanded lung in the right apex. DIVISION OF RADIOLOGYProvider, [facility] [place] - 04/29/2024 * * *Final Report* * * DATE OF EXAM: Apr 29 2024 5:02PM [facility] 0548 - CT LIVER W IVCON / [...] LI-RADS Category: LR-5/OPTN class 5 (definitely HCC) Iffqa-gz-orct: absent. No other focal hepatic lesion. Biliary: [...] least) right lower lung collapse. Localizer images: Building Appraiser image shows small volume of expanded lung in the right apex. IMPRESSION IMPRESSION: MORPHOLOGIC FINDINGS OF CIRRHOSIS AND PORTAL HYPERTENSION. 1.0 CM LI-RADS 5/OPTN 5 LESION IN THE DOME OF SEGMENT VIII WITHOUT TUMOR THROMBUS. NO EVIDENCE OF METASTATIC DISEASE. MASSIVE ASCITES. MASSIVE RIGHT PLEURAL EFFUSION WITH AT LEAST SEGMENTAL RIGHT LUNG COLLAPSE. Ward Maid: SRINI Transcribe Date/Time: Apr 29 2024 9:30P Dictated by : MORALES ADAMS MD This examination was interpreted and the report reviewed and electronically signed by: MORALES ADAMS MD on Apr 29 2024 11:09PM EST [facility] HospitalRadiology Study observation (narrative)[facility] Liver W contrast IVOrdered By: Ccf Provider on 51-51-2138Oiuzqodia ClinicUS PARACENTESIS ABD W/IMAGEon 50-95-8343M[address] [address] Ultrasound Report Signed Patient: LOYD BLANDON MR#: [id number] : 1955 Acct:[id number] Age/Sex: 68 / M ADM Date: 04/03/24 Loc: US Attending Dr: Non-Staff Physician Eriberto Ordering Physician: PhysicianYolandaStaff Eriberto Date of Service: 04/03/24 Procedure(s): US paracentesis abd w/image Accession Number(s): [id number] cc: SANJAY ROBLEDO ; Physician,YolandaStaff Eriberto The [place] [address] Patient Name: LOYD BLANDON MRN: [id number] date: 1955 Sex: M Assigned Patient Location: US Current Patient Location: US Accession/Order Number: [id number] Exam Date: 04/03/2024 07:30 Report Date: 04/03/2024 [...] L of fluid. Electronically authenticated by: WARD FERRER Date: 04/03/2024 11:05 Dictated By: Ward Ferrer M.D. Signed By: 04/03/24 1108 DD/ 110 TD/TT: Ward Maid:TBHRadiology, Radiologist, - 04/03/2024 [place] [address] Ultrasound Report Signed Patient: LOYD BLANDON MR#: [id number] : 1955 Acct:[id number] Age/Sex: 68 / M ADM Date: 04/03/24 Loc: US Attending Dr: Non-Staff Physician Eriberto Ordering Physician: Maddy Duarte M.D. Date of Service: 04/03/24 Procedure(s): US paracentesis abd w/image Accession Number(s): [id number] cc: SANJAY ROBLEDO ; Physician,YolandaStaff Eriberto The [address] [address] Patient Name: LOYD BLANDON MRN: [id number] date: 1955 Sex: M Assigned Patient Location: US Current Patient Location: [place] Accession/Order Number: [id number] Exam Date: 04/03/2024 07:30 Report Date: 04/03/2024 [...] L of fluid. Electronically authenticated by: WARD FERRER Date: 04/03/2024 11:05 Dictated By: Ward Ferrer M.D. Signed By: 04/03/24 110 DD/ 110 TD/TT: Ward Maid: EDDIE HealthcareRadiology Study observation (narrative)EDDIE HealthcareUS PARACENTESIS ABD W/IMAGEOrdered By: Radiologist Radiology on [id number] Healthcare Work Phone: [place] PARACENTESIS ABD W/IMAGEon [id number] [address] Ultrasound Report Signed Patient: LOYD BLANDON MR#: [id number] : 1955 Acct:[id number] Age/Sex: 68 / M ADM Date: 03/11/24 Loc: US Attending Dr: Non-Staff Physician Eriberto Ordering Physician: PhysicianBryanna-Staff Eriberto Date of Service: 03/11/24 Procedure(s): US paracentesis abd w/image Accession Number(s): [id number] cc: SANJAY ROBLEDO ; Physician,Bryanna-Staff Eriberto [place] [id number] Patient Name: LOYD BLANDON MRN: [facility]:[id number] date: 1955 Sex: M Assigned Patient Location: [place] Current Patient Location: Accession/Order Number: [id number] Exam Date: 03/11/2024 12:48 Report Date: 03/12/2024 [...] opaque yellowish fluid. Electronically authenticated by: WARD FERRER Date: 03/12/2024 06:44 Dictated By: Ward Ferrer M.D. Signed By: 03/12/2446 DD/ 3 TD/TT: Ward Maid:TBHRadiology, Radiologist, - 03/12/2024 [facility] [place] [id number] Ultrasound Report Signed Patient: LOYD BLANDON MR#: [id number] : 1955 Acct:[id number] Age/Sex: 68 / M ADM Date: 03/11/24 Loc: US Attending Dr: Non-Staff Physician Eriberto Ordering Physician: Physician,Non-Staff Eriberto Date of Service: 03/11/24 Procedure(s): US paracentesis abd w/image Accession Number(s): [id number] cc: SANJAY ROBLEDO ; Physician,Non-Staff Eriberto [place] [id number] Patient Name: LOYD BLANDON MRN: [facility]:[id number] date: 1955 Sex: M Assigned Patient Location: US Current Patient Location: Accession/Order Number: [id number] Exam Date: 03/11/2024 12:48 Report Date: 03/12/2024 [...] opaque yellowish fluid. Electronically authenticated by: WARD FERRER Date: 03/12/2024 06:44 Dictated By: Ward Ferrer M.D. Signed By: 03/12/2446 DD/ 3 TD/TT: Ward Maid: EDDIE HealthcareRadiology Study observation (narrative)EDDIE MixUS PARACENTESIS ABD W/IMAGEOrdered By: Radiologist Radiology on [id number] [employer] Work Phone: [phone] [phone] patient's had a concern regarding increasing Coreg dose to [...] he tolerates it. Deny Simpson MD Gastroenterology FellowNormalUniversity of Hca Houston Healthcare NorthwestTelephoneon [id number] Loyd Blandon 1955 [facility] Provider Department [place] 03/11/2024 151[facility]Y [facility] No family history on fileNormalUniversity Bellevue Hospital37on 51-26-453811Uyqerj increase the coreg dose to 6.25 mg in the am and 3.125 mg in the pm Do the Chest Xray now and if there are concerns for fluid accumulation, go to the ED Do the labs ordered todayNormalUniCity HospitalCB WITH AUTO DIFFERENTIALon 39-69-6614Pmvvppmcl (Bld) [#/Vol]0.05 10*3/uLNormal0.00-0.20 [facility] HospitalComment on above:Performed By: #### [id number] #### [facility] (BEAKER) [address] [place], [place] [address]Pacvejvjp/100 WBC (Bld)1.1 %High0.0-1.0UnAdena Health SystemComment on above:Performed By: #### [id number] #### [facility] ([facility]ER) [address] [place], [place] [address]Nhsmkgvatgk (Bld) [#/Vol]0.22 10*3/uLNormal0.00-0.50UnAdena Health SystemComment on above:Performed By: #### [id number] #### [facility] ([facility]) [address] [place] [address]Rettdkybowp/100 WBC (Bld)4.8 %Normal0.0-6.0UnAdena Health SystemComment on above:Performed By: #### [id number] #### [facility] ([facility]) [address] [facility] [place], [place] [address]Gsmlbxieqnf distribution width (RBC) [Ratio]16.4 %High11.5-15.0 [facility] HospitalComment on above:Performed By: #### [id number] #### [facility] ([facility]) [address] [place] [place], [place] [address]KHNRMWOXOUI MEAN CORPUSCULAR HEMOGLOBIN CONCENTRATION (G/DL) BY FTONLVQGT48.1 g/zDPnryum22.0-35.0UnAdena Health SystemComment on above:Performed By: #### [id number] #### [facility] ([facility]) [address] [place], [place] [address]Crneylrzjm (Bld) [Volume fraction]37.5 %Low39.0-55.0UnAdena Health SystemComment on above:Performed By: #### [id number] #### [facility] ([facility]) [address] [place], [place] [address]Hshzxpjgdk (Bld) [Mass/Vol]12.8 g/dLLow13.0-17.0UnAdena Health SystemComment on above:Performed By: #### [id number] #### [facility] ([facility]) [address] [place], [place] [address]Zwvkiwcp granulocytes (Bld) [#/Vol]0.02 10*3/uLNormal0.00-0.20 [facility] HospitalComment on above:Performed By: #### [id number] #### [facility] ([facility]) [address] [facility] [place], [place] [address]Zslvimvl granulocytes/100 WBC (Bld)0.4 %Normal0.0-1.0UnAdena Health SystemComment on above:Performed By: #### [id number] #### [facility] ([facility]) [address] [place], [place] [address]Ztzhbxqruwz (Bld) [#/Vol]0.71 10*3/uLLow1.20-4.00UnAdena Health SystemComment on above:Performed By: #### [id number] #### [facility] ([facility]) [address] [place], [place] [address]Venrfritwke/100 WBC (Bld)15.6 %Low20.0-45.0UnAdena Health SystemComment on above:Performed By: #### [id number] #### [facility] ([facility]) [address] [place], [place] [address]SEK (RBC) [Entitic mass]34.3 jwJyis87.0-33.0UnAdena Health SystemComment on above:Performed By: #### [id number] #### [facility] ([facility]) [address] [facility]ITAL[address] [place], [place] [address]XNU (RBC) [Entitic vol]100.5 mVEpms99.0-98.0UnAdena Health SystemComment on above:Performed By: #### [id number] #### [facility] ([facility]) [address] [facility] [place], [place] [address]Qyemmyrnh (Bld) [#/Vol]0.57 10*3/uLNormal0.10-1.00UnAdena Health SystemComment on above:Performed By: #### [id number] #### [facility] ([facility]) [address] [place], [place] [address]Lkessdvvd/100 WBC (Bld)12.5 %High5.0-12.0UnAdena Health SystemComment on above:Performed By: #### [id number] #### [facility] ([facility]) [address] [place] [address]Tnadwiuroeo (Bld) [#/Vol]2.99 10*3/uLNormal1.60-7.60UnAdena Health SystemComment on above:Performed By: #### [id number] #### [facility] ([facility]) [address] [place] [address]Edqecptheqa/100 WBC (Bld)65.6 %Ozetkx69.0-72.0UnAdena Health SystemComment on above:Performed By: #### [id number] #### [facility] ([facility]) [address] [place] [address]JJDB (PER 100 WBCS) BY AUTOMATED COUNT0.0 %Txkvtq5GuuhwzamyhAdena Health SystemComment on above:Performed By: #### [id number] #### [facility] ([facility]) [address] [place] [address]OLKMYOVMN (10*3/UL) IN BLOOD AUTOMATED FOWBB198 10*3/uLNormal 150-400UnAdena Health SystemComment on above:Performed By: #### [id number] #### [facility] ([facility]) [address] [place] [address]ZNA (Bld) [#/Vol]3.73 10*6/uLLow4.20-5.70UnAdena Health SystemComment on above:Performed By: #### [id number] #### [facility] ([facility]) [address] [place] [address]FCI (Bld) [#/Vol]4.56 10*3/uLNormal4.00-10.60UnAdena Health SystemComment on above:Performed By: #### [id number] #### [facility] ([facility]) [address] [place] [address]VAAGDYCVNTYCN METABOLIC PANELon 47-36-4889Klhcvgc [Mass/Vol]3.0 g/dLLow3.5-5.7UnAdena Health SystemComment on above:Performed By: #### [id number] ####[facility] (BEAKER)[address] [place], [place] [address]PEJ [Catalytic activity/Vol]113 U/TEupj52-982JgkcahvgfeAdena Health System Comment on above:Performed By: #### [id number] ####[facility] ([facility])[address] [place], [place] [address]SNC [Catalytic activity/Vol]28 U/LNormal7-52 [facility] HospitalComment on above:Performed By: #### [id number] ####[facility] ([facility])[address] [place], [place] [address]Osfgx gap [Moles/Vol]10 mmol/LNormal7-20UnAdena Health SystemComment on above:Performed By: #### [id number] ####[facility] ([facility])[address] [place], [place] [address]MUS [Catalytic activity/Vol]48 U/AUavb29-12ToqwmbhhfmAdena Health SystemComment on above:Performed By: #### [id number] ####[facility] ([facility])[address] [place], [place] [address]Ddqjgunxs [Mass/Vol]1.7 mg/dLHigh 0.3-1.0UnAdena Health SystemComment on above:Performed By: #### [id number] ####[facility] ([facility])[address] [place], [place] [address]Ddbqrge [Mass/Vol]8.8 mg/dLNormal8.6-10.3UnAdena Health SystemComment on above:Performed By: #### [id number] ####[facility] (BEAKER)[address] [place], [place] [address]Phtwdiuz [Moles/Vol]101 mmol/PWeewjw56-955FqhtaermqmAdena Health SystemComment on above:Performed By: #### [id number] ####[facility] (BEAKER)[address] [place], [place] [address]GP4 [Moles/Vol]24 mmol/LNormal 21-31UnAdena Health SystemComment on above:Performed By: #### [id number] ####[facility] ([facility])[address] [place] [address]Rwlkhegpzv [Mass/Vol]1.20 mg/dLNormal0.70-1.30UnAdena Health SystemComment on above:Performed By: #### [id number] ####[facility] ([facility])[address] [place], [place] [address]HUBEEJOGPL FILTRATION RATE ML/MIN/1.73 SQ M.ILRUAZQBV29.1 mL/min/1.73m*2Normal>60.0UnAdena Health SystemComment on above: Result Comment: The [facility] [...] potential consequences that do not disproportionately affect anyone group of individuals.Performed By: #### [id number] ####[facility] ([facility])[address] [facility]ALLEGHEN[facility] H[place]PITALMar[place]za[place], [place] [address]Nylunem [Mass/Vol]184 mg/sRGoce14-591HmvpqvlijjAdena Health SystemComment on above:Performed By: #### [id number] ####[facility] ([facility])[address] [place], [place] [address]Xgxuufbet [Moles/Vol]4.4 mmol/L Normal3.5-5.1UnAdena Health SystemComment on above:Performed By: #### [id number] ####[facility] ([facility])[address] [place] [address] Protein [Mass/Vol]7.0 g/dLNormal6.0-8.3UnAdena Health System Comment on above:Performed By: #### [id number] ####[facility] (BEAKER)[address] [place], [place] [address]Nbybry [Moles/Vol]131 mmol/YKwh527-196FuawvjmalnAdena Health SystemComment on above:Performed By: #### [id number] ####[facility] (BEAKER)[address] [place], [place] [address]Trnn nitrogen [Mass/Vol] 18 mg/dLNormal7-25UnAdena Health SystemComment on above:Performed By: #### [id number] ####[facility] ([facility])[address] [place] [address] UREA NITROGEN/CREATININE (MASS RATIO) IN SER/PLAS15.0NormalUniCity HospitalComment on above:Performed By: #### [id number] ####[facility] (BEAKER)[address] [place] [address]Zrwuw [id number] Loyd Blandon 1955 M Date Provider Department Center 03/08/2024 2244-[facility] MP LAB RESOURCE MP DRAW Medical Pavi No family history on fileNormalUniCity HospitalOffice Visiton 98-00-3060Kzayky-up [id number] Loyd Blandon 1955 M Date Provider Department Center 03/08/2024 298-[facility] No family history on file Level of Service:13817 [place] OFFICE/OUTPATIENT ESTABLISHED HIGH MDM 40 MIN (GC) Reason for Visit and Comments: Follow-up [434159] Cirrhosis [239]NormalUnAdena Health SystemPROTIME-INRon 03-08-2024 INR IN PPP BY COAGULATION ASSAY1.13Gakb9.90-1.10UnAdena Health SystemComment on above:Result Comment: ACCCP RECOMMENDED INR FOR WARFARIN THERAPY CONDITION INR PROPHYLAXIS OF VENOUS THROMBOSIS 2-3 (HIGH-RISK SURGERY) TREATMENT OF VENOUS THROMBOSIS 2-3 TREATMENT OF PULMONARY EMBOLISM 2-3 PREVENTION OF SYSTEMIC EMBOLISM: 2-3 ACUTE MYOCARDIAL INFARCTION TISSUE HEART VALVES VALVULAR HEART DISEASE ATRIAL FIBRILLATION RECURRENT SYSTEMIC EMBOLISM MECHANICAL HEART VALVE 2.5-3.5 FROM: ORAL ANTICOAGULANTS. MECHANISM OF ACTION, CLINICAL EFFECTIVENESS, AND OPTIMAL THERAPEUTIC RANGE. CHEST 1995;108:231S-246S.Performed By: #### [id number] ####[facility])[address] [place], [place] [address]DNGHRZAGPUR TIME (PT) IN PPP BY COAGULATION ASSAY16.6 MfhqwueAtef89.3-14.8UnAdena Health SystemComment on above:Performed By: #### [id number] ####[facility])[address] [place], [place] [address]MQT CULTUREon 55-56-6183BSA CULTURENo growth at 42 daysNormalUniCity HospitalComment on above: Performed By: #### [id number] ####[facility] ([facility])[address] [place], [place] [address]WAN STAINNo acid fast bacilli seenNormalUniCity HospitalComment on above:Performed By: #### [id number] ####[facility])[address] [place], [place] [address]ZVAUQVH, BODY FLUIDon 02-20-2024 AMYLASE (U/L) IN BODY FLUID18 U/LNormalUnAdena Health System Comment on above:Result Comment: The reference range and other method performance specifications have not been established for this test in fluids. the test result should be integrated into the clinical context for in terpretation.Performed By: #### [id number] ####[facility])[address] [place], [place] [address]BVRK FLUID CELL DIFFERENTIALon 59-41-1754EBXMNGUAR TOTAL PER COUNTED LEUKOCYTES IN BODY FLUID BY MANUAL COUNTNormalUniversity of Hca [facility] Healthcare NorthwestComeaton rapids medical center on above:Order Comment: Differential performed on cytospinPerformed By: #### [id number] ####[facility] (BEAKER)[address] [place], [place] [address]WXJDI COUNTED TOTAL (#) IN BODY KPOXA883XpmwerLvkmjmbxgp of [facility] NorthwestComeaton rapids medical center on above:Order Comment: Differential performed on cytospinPerformed By: #### [id number] ####[facility] (AKER)[address] [place], [place] [address]KEQZHZZDWLV TOTAL PER COUNTED LEUKOCYTES IN BODY FLUID BY MANUAL COUNTNormalUniversity of [facility] Healthcare NorthwestComeaton rapids medical center on above:Order Comment: Differential performed on cytospinPerformed By: #### [id number] ####[facility] ([facility])[address] [place], [place] [address]BKDMGAVWVVQ TOTAL PER COUNTED LEUKOCYTES IN BODY FLUID BY MANUAL KGJEL61RcbdioEinsypuixmMercy Health St. Vincent Medical CenterComeaton rapids medical center on above:Order Comment: Differential performed on cytospin Performed By: #### [id number] ####[facility] (AKER)[address] [place], [place] [address]CENHBHMYDYN CELLS TOTAL PER COUNTED LEUKOCYTES IN BODY FLUID BY MANUAL AYVT64NjfntdZcyeurjbwz of [facility] NorthwestCome[facility] rap[facility] on above:Order Comment: Differential performed on cytospinPerformed By: #### [id number] ####[facility] (BEAKER)[address] [place], [place] [address]QNYBWXCVX+MACROPHAGES TOTAL PER COUNTED LEUKOCYTES IN BODY FLUID BY MANUALNormalUniversity of [facility] NorthwestComeaton rap[facility] medical center on above:Order Comment: Differential performed on cytospin Performed By: #### [id number] ####[facility] (BEAKER)[address] [place], [place] [address]BJRZIHHZXHQ TOTAL PER COUNTED LEUKOCYTES IN BODY FLUID BY MANUAL QOVDB8NpyivoDubhmkftoiMercy Health St. Vincent Medical CenterComeaton rapids medical center on above:Order Comment: Differential performed on cytospinPerformed By: #### [id number] ####[facility] (BEAKER)[address] AVETOALLEGHENY GENERAL HOSPITALMaritzaPO[place], [place] [address]MCFLO CELLS BODY FLUID (MANUAL)NormalUnAdena Health SystemComment on above:Order Comment: Differential performed on cytospinPerformed By: #### [id number] ####[facility] ([facility])[address] [place] [address]YHBD FLUID CULTUREon 02-20-2024 Bacteria identified Cx Nom (Unsp spec)No growth at 5 daysNormalUniCity HospitalComment on above:Performed By: #### [id number] ####[facility] ([facility])[address] [place]US[place]GHEN[place] [address]ANVD STAIN RESULTNormal [facility] HospitalComment on above:Result Comment: Polymorphonuclear leukocytes No organisms seen Cytocentrifuge samplePerformed By: #### [id number] ####[facility] ([facility])[address] [facility]US[place]GH[facility] [address]GTSxp 79-11-7560Esekrgerova distribution width (RBC) [Ratio]16.0 %High11.5-15.0UnAdena Health SystemComment on above:Performed By: #### [id number] ####[facility] ([facility])[address] DARIUSALLEGHENY GENERAL HOSPITALMaritzaPO[place], [place] [address]GIMRRQASVGF MEAN CORPUSCULAR HEMOGLOBIN CONCENTRATION (G/DL) BY HGOUJUSBH31.2 g/bSZgdbtx20.0-35.0UnAdena Health SystemComment on above:Performed By: #### [id number] ####[facility] ([facility])[address] [place], [place] [address]Abictgaibr (Bld) [Volume fraction]33.6 %Low39.0-55.0UnAdena Health SystemComment on above: Performed By: #### [id number] ####[facility] ([facility])[address] [place], [place] [address]Ffkhqlmosc (Bld) [Mass/Vol]11.5 g/dLLow13.0-17.0UnAdena Health SystemComment on above:Performed By: #### [id number] ####[facility] ([facility])[address] [address]YABPICER PLATELET FRACTION %1.7 %Normal0.8-6.3UnAdena Health SystemComment on above: Performed By: #### [id number] ####[facility] ([facility])[address] [address]JGV (RBC) [Entitic mass]34.0 xgNhtc23.0-33.0UnAdena Health SystemComment on above:Performed By: #### [id number] ####[facility] ([facility])[address] [place] [address]BKM (RBC) [Entitic vol] 99.4 xRApmn98.0-98.0UnAdena Health SystemComment on above: Performed By: #### [id number] ####[facility] ([facility])[address] [place] [address]NBRKSGBDH (10*3/UL) IN BLOOD AUTOMATED [id number] 10*3/uLLow 150-400UnAdena Health SystemComment on above:Performed By: #### [id number] ####[facility] ([facility])[address] [place] [address]VDC (Bld) [#/Vol]3.38 10*6/uLLow4.20-5.70UnAdena Health SystemComment on above:Performed By: #### [id number] ####[facility] ([facility])[address] [place] [address]GEV (Bld) [#/Vol]4.26 10*3/uLNormal4.00-10.60UnAdena Health SystemComment on above:Performed By: #### [id number] ####[facility] ([facility])[address] [place] [address]BPUEGOGFSKL, BODY FLUIDon 21-75-6911PUEPQXXAPKP (MG/DL) IN BODY FLUID<25[address] Vincent Medical CenterComment on above:Performed By: #### [id number] #### [facility] ([facility]) [address] [place], [place] [address]FCHKZVJFEWQNB METABOLIC PANELon 54-87-2862Mmofzxi [Mass/Vol]2.6 g/dLLow3.5-5.7UnAdena Health SystemComment on above:Performed By: #### [id number] #### [facility] ([facility]) [address] [place] [place], [place] [address]CZB [Catalytic activity/Vol]89 U/QOaeqgd85-561DdqtspfefgAdena Health SystemComment on above:Performed By: #### [id number] #### [facility] ([facility]) [address] [place] [place], [place] [address]COC [Catalytic activity/Vol]20 U/LNormal7-52UnAdena Health SystemComment on above:Performed By: #### [id number] #### [facility] ([facility]) [address] [place], [place] [address]Prpgc gap [Moles/Vol]8 mmol/LNormal7-20UnAdena Health SystemComment on above:Performed By: #### [id number] #### [facility] ([facility]) [address] [place], [place] [address]NUX [Catalytic activity/Vol]35 U/YGzecru62-67TyskgerdveAdena Health SystemComment on above:Performed By: #### [id number] #### [facility] ([facility]) [address] [place], [place] [address]Dkwunpfib [Mass/Vol]1.5 mg/dLHigh0.3-1.0UnAdena Health SystemComment on above:Performed By: #### [id number] #### [facility] ([facility]) [address] [place], [place] [address]Sddnoyh [Mass/Vol]8.4 mg/dLLow8.6-10.3UnAdena Health SystemComment on above:Performed By: #### [id number] #### [facility] ([facility]) [address] [place], [place] [address]Ixtusamr [Moles/Vol]105 mmol/ADfpehd54-614IxkymcflpwAdena Health SystemComment on above:Performed By: #### [id number] #### [facility] ([place]) [address] [place] [address]KD8 [Moles/Vol]25 mmol/JKicpmn35-50IeiihquzedAdena Health SystemComment on above:Performed By: #### [id number] #### [facility] ([facility]) [address] [place] [address]Sxdriiayot [Mass/Vol]1.09 mg/dLNormal0.70-1.30UnAdena Health SystemComment on above:Performed By: #### [id number] #### [facility] ([facility]) [address] [place] [address]IRRKCKFRBQ FILTRATION RATE ML/MIN/1.73 SQ M.HSUKIZRDO41.0 mL/min/1.73m*2Normal>60.0UnAdena Health SystemComment on above: Result Comment: The [facility] [...] potential consequences that do not disproportionately affect anyone group of individuals.Performed By: #### [id number] #### [facility] ([place]) [address] [place] [address]Ivfpbuw [Mass/Vol]103 mg/iEQdsm75-751XgilzvvrizAdena Health SystemComment on above:Performed By: #### [id number] #### [facility] ([facility]) [address] [place] [address]Snneqacww [Moles/Vol]4.3 mmol/LNormal3.5-5.1UnAdena Health SystemComment on above:Performed By: #### [id number] #### [facility] ([facility]) [address] [place], [place] [address]Celzofv [Mass/Vol]6.0 g/dLNormal6.0-8.3UnAdena Health SystemComment on above:Performed By: #### [id number] #### [facility] ([facility]) [address] [place], [place] [address]Qhpitn [Moles/Vol]134 mmol/KFfi952-658TzikgjskyhAdena Health SystemComment on above:Performed By: #### [id number] #### [facility] ([facility]) [address] [place], [place] [address]Umzp nitrogen [Mass/Vol]20 mg/dLNormal7-25UnAdena Health SystemComment on above:Performed By: #### [id number] #### [facility] ([facility]) [address] [place], [place] [address]EGEB NITROGEN/CREATININE (MASS RATIO) IN SER/PLAS18.3Normal [facility] HospitalComment on above:Performed By: #### [id number] #### [facility] ([facility]) [address] [place], [place] [address]ERDJMVN, BODY FLUIDon [id number] (MG/DL) IN BODY YPVOY767 mg/dLNormalUniversMercy Health St. Vincent Medical CenterComment on above:Result Comment: The reference range and other method performance specifications have not been established for this test in fluids. the test result should be integrated into the clinical context for interpretation.Performed By: #### [id number] ####[facility] ([facility])[address] [place], [place] [address]VNrq 90-20-1285OMX&P reviewed. The patient was examined and there are no changes to the H&P.Normal [facility] HospitalLACTATE DEHYDROGENASEon 77-78-6913RYDRBJK DEHYDROGENASE (U/L) IN SER/PLAS BY LAC->PYR RBP718 U/GQylule281-141VdwssunaepAdena Health SystemComment on above:Performed By: #### [id number] #### [facility] ([facility]) [address] [place], [place] [address]MAIRYUK DEHYDROGENASE, BODY FLUIDon 13-17-8833HCPTCRM DEHYDROGENASE (U/L) IN BODY FLUID BY LAC->PYR42 U/LNormalUnAdena Health SystemComment on above:Result Comment: The reference range and other method performance specifications have not been established for this test in fluids. the test result should be integrated into the clinical context for in terpretation.Performed By: #### [id number] #### [facility] ([facility]) [address] [place], [place] [address]DJU-FVB CYTOLOGY - CELLULAR EXAMon 10-19-9410TMW AP CASE REPORT NormalUnAdena Health SystemComment on above:Result Comment: Non- gynecologic Cytology Case: [id number] Authorizing Provider: Aston Conner MD Collected: 02/20/2024 1014 Ordering Location: [address] Surgery Received: 02/20/2024 1208 Pathologist: Shireen Pat MD Specimen: Pleural fluid, right, collected per pulmonary residentPerformed By: #### [id number] ####[facility] ([facility])[address] [place], [place] [address]FFX AP CLINICAL INFORMATIONNormalUniCity HospitalComment on above:Result Comment: Pleural effusionPerformed By: #### LAB13 ####[facility] ([facility])[address] [place], [place] [address]JLA AP DIAGNOSIS COMMENTWhile no malignancy is identified in this sample, the specimen is hypocellular. Of note, only 18 mLof pleural fluid specimen was received in the lab, of which 5 mL was available for cytology testing. A specimen volume of at least 200 mL is recommended for cytology when available.NormalUnAdena Health SystemComment on above:Performed By: #### LAB13 ####[facility] ([facility])[address] [place], [place] [address]NNY AP GROSS DESCRIPTIONNormal [facility] Ontario HospitalComment on above:Result Comment: 5 mL clear, yellow fluidPerformed By: #### [id number] ####[facility] ([facility])[address] [place] [address]BPO AP REPORT FINAL DIAGNOSIS NARRATIVENormal [facility] Ontario HospitalComment on above:Result Comment: A. Pleural fluid, right: - Negative for malignancy. - Hypocellular specimen. See comment. Performed By: #### LAB13 ####[facility] ([facility])[address] [place] [address] NURSNOTEon 96-72-2995QIOMRSTLUzi positioning devices removed pt remains supine. NormalUnAdena Health SystemPATHOLOGY REVIEWon 05-16-5897WRJIOPKVA REVIEW .Normal [facility] HospitalComment on above:Performed By: #### [id number] ####[facility] ([facility])[address] [place] [address]TZVY GLUCOSE METER UNSOLICITED RESULTSon 35-99-0872Aeqitqe [Mass/Vol]94 mg/dCPltugr57-733 [facility] Ontario HospitalComment on above:Order Comment: Waived Testing in the ED is performed under the ED CLIA certificate #[id number].Result Comment: skirbyPerformed By: #### [id number] ####[facility] ([facility])[address] [place], [place] [address]AJHOZHQ, BODY FLUIDon 04-51-4316Chjuouq (Body fld) [Mass/Vol]g/dLNormalUniversMercy Health St. Vincent Medical CenterComment on above:Result Comment: The reference range and other method performance specifications have not been established for this test in fluids. the test result should be integrated into the clinical context for interpretation.Performed By: #### [id number] ####[facility] ([facility])[address] [place], [place] [address]QAJNOHO, TOTALon 97-74-1063Mqjktty [Mass/Vol]6.4 g/dLNormal6.0-8.3UnAdena Health SystemComment on above:Performed By: #### [id number] #### [facility] ([facility]) [address] [place] [address]BKRCCQA-OAQjn 40-14-6602RCV IN PPP BY COAGULATION ASSAY1.35High 0.90-1.10UnAdena Health SystemComment on above:Result Comment: ACC RECOMMENDED INR FOR WARFARIN THERAPY CONDITION INR PROPHYLAXIS OF VENOUS THROMBOSIS 2-3 (HIGH-RISK SURGERY) TREATMENT OF VENOUS THROMBOSIS 2-3 TREATMENT OF PULMONARY EMBOLISM 2-3 PREVENTION OF SYSTEMIC EMBOLISM: 2-3 ACUTE MYOCARDIAL INFARCTION TISSUE HEART VALVES VALVULAR HEART DISEASE ATRIAL FIBRILLATION RECURRENT SYSTEMIC EMBOLISM MECHANICAL HEART VALVE 2.5-3.5 FROM: ORAL ANTICOAGULANTS. MECHANISM OF ACTION, CLINICAL EFFECTIVENESS, AND OPTIMAL THERAPEUTIC RANGE. CHEST 1995;108:231S-246S.Performed By: #### [id number] ####[facility] ([facility])[address] [facility] [facility], [place] [address]YUXEOEFTNDE TIME (PT) IN PPP BY COAGULATION ASSAY16.6 RrnxsxkKvqx50.3-14.8UnAdena Health SystemComment on above:Performed By: #### [id number] ####[facility] ([facility])[address] [place], [place] [address]GVEWHAVFJAZRV, BODY FLUIDon 02-20-2024 TRIGLYCERIDES (MG/DL) IN BODY FLUID30 mg/dLNormalUniversMercy Health St. Vincent Medical CenterComment on above:Performed By: #### [id number] #### [facility] ([facility]) [address] [place] [address]zq 85-86-345033Nsg patient is Moderately Stable - Low risk of patient condition [...] Progressing 02/19/20242040 by Diane Zavala RN Outcome: ProgressingNormalUniversity of Hca Houston Healthcare NorthwestCONSULTon 18-04-6485ZARDREU Attestation signed by Milagro Sheehan MD at 02/20/2024 12:40 PM I saw and evaluated the patient. I reviewed the resident's/fellow's note and agree with the findings and plan documents in the resident's/fellow's note Initial Gastroenterology/Hepatology Consultation Note IDENTIFYING DATA PATIENT: Loyd Blandon [...] SEE ATTACHED FOR DETAILED DIRECTIONS 03/24/23 Historical ProviderMD famotidine (Pepcid) 40 mg tablet [...] 3 tablets (150 m (more content not included)...[facility] SystemCONSULT Attestation signed by Aston Conner MD at [...] Conner MD Pulmonary and critical care Pulmonology Consult Patient : Loyd Blandon : [...] cirrhosis for which he follows up with [facility] gastroenterology. He has been struggling with recurrent ascites and has undergone multiple paracentesis over the past many weeks. He experiences dyspnea both at rest and over exertion for the past [address] imaging he was found to have large right-sided pleural effusion for which he underwent thoracentesis by field technical specialist at [facility]. Patient reports that his dyspnea got better/relieved for 1 day and he became symptomatic again after the fluid got reaccumulated. Today patient came to the [facility] hospital for an EGD he is accompanied [...] on file Years of (more content not included)...[facility] 55-09-5482LH Attestation signed by Milagro Sheehan MD at 02/20/2024 12:40 PM I saw and evaluated the patient. I reviewed the resident's/fellow's note and agree with the findings and plan documents in the resident's/fellow's note Initial Gastroenterology/Hepatology Consultation Note IDENTIFYING DATA PATIENT: Loyd Blandon [...] 3 tablets (150 m (more content not included)...[facility] SystemHP Attestation signed by Irena Johnson MD at 02/19/2024 10:30 AM I personally saw and examined the patient on the same date of service as fellow. I discussed the findings and therapeutic plan with the fellow. I agree with the documentation, except for any edits/updates below. Gastroenterology History and Physical Note IDENTIFYING DATA [...] in the morning. 12/27/23 Marito Oquendo MD triamterene-hydrochlorothiazid (Dyazide) 37.5-25 mg capsule TAKE 1 CAPSULE BY MOUTH EVERY MORNING NEEDED FOR LEG SWELLING 03/16/23 Historical Provider, REVIEW OF SYSTEMS See HPI, otherwise ROS negative as below. OBJECTIVE DATA Vitals: There were no vitals taken for this visit. Physical Exam Vitals reviewed. Cardiovascular: Rate and Rhythm: Normal rate. Pulmonary: Effort: Pulmonary effort is normal. Abdominal: General: Abdomen i (more content not included)...[facility] SystemOrders Onlyon 95-59-1345Fqnepn [id number] Loyd Blandon 1955 M [facility] Provider Department Center 02/19/2024 [place] [facility] No family history on [facility] systemNormalUniCity HospitalOrders Only [id number] Loyd Blandon 1955 [facility] Provider Department [place] 02/19/2024 JANINA ROMERO MP [facility] Medical [facility]avi No family history on [facility]36on 53-29-028614Tqbuqi patient's to schedule his 4-6 week follow up with Dr. Johnson, was able to get him in for the 03/08/24 clinic. During this phone call his stated that she is very upset and anxious because he had an MRI done on 01/25/24 in [place] and still hasn't received a call regarding the results. Apologized to her and told her a message would be sent to the provider regarding the results being reviewed with her and the patient, confirmed the message would be sent high priority. Please advise.[facility]36 LVM for patient's letting her know we have some available appts with Dr. Johnson on 02/21/24 and 03/08/24 to bring him in for a follow up Liver cirrhosis [facility] SystemOffice Visiton 78-05-7589Wydony-up [id number] Loyd Blandon 1955 [facility] Provider Department Center 02/15/2024 JEAN KIM ONC DCC No family history on file Level of Service:83655 [place] OFFICE/OUTPATIENT NEW LOW MDM 30 MINUTES (GC) Reason for Visit and Comments: Consult [484] - New patient possible thoracentesisNormalUniversMercy Health St. Vincent Medical Center36on 40-80-753729Memetws's called with questions/concerns regarding his upcoming endoscopy and his breathing during procedure. Transferred to endoscopy to speak with one of the nurses and/or schedulers that can answer questions related to preparation for the procedure.NormalAvita Health System Ontario HospitalALL CBC WITH AUTO DIFFon 05-48-2354KXLHSTWNA ABSOLUTE AUTO0.1NOMS HealthcareBasophils/100 WBC (Bld)1 %0.2 - 2.0 %NOMS HealthcareEosinophils/100 WBC (Bld)4.5 %0.9 - 7.0 %NOMS HealthcareErythrocyte distribution width (RBC) [Ratio]15.6 %High11.0 - 15.0 % NOMS HealthcareHematocrit (Bld) [Volume fraction]38.2 %Low42.0 - 54.0 %NOMS Wilson HealthHemoglobin (Bld) [Mass/Vol]13.1 g/dLLow14.0 - 18.0 g/dLNOJefferson Memorial Hospital IMMATURE GRANULOCYTES ABS AUTO0.01NOJefferson Memorial HospitalImmature granulocytes/100 WBC (Bld)0.2 %0.0 - 0.5 %NOM HealthcareInterpretation and review of laboratory resultsAbnormalNOJefferson Memorial HospitalLYMPHOCYTES ABSOLUTE GGVP2VpxIQEW Healthcare Lymphocytes/100 WBC (Bld)19.5 %Low20.5 - 60.0 %[facility] HospitalH (RBC) [Entitic mass]34.7 xePwvy55.9 - 34.0 pgNOMoberly Regional Medical CenterHC (RBC) [Mass/Vol]34.3 g/dL29.9 - 35.2 g/dLLee's Summit HospitalV (RBC) [Entitic vol]101.1 gOQefr02.0 - 94.0 fLNOJefferson Memorial HospitalMONOCYTES ABSOLUTE AUTO0.6NOMS HealthcareMonocytes/100 WBC (Bld)11.7 % 1.7 - 12.0 %NOMS HealthcareNEUTROPHILS ABSOLUTE AUTO3.1NOMS Healthcare Neutrophils/100 WBC (Bld)63.1 %43.0 - 75.0 %NOMS Wilson HealthPlatelet mean volume (Bld) [Entitic vol]10 fL9.5 - 13.5 fLNOJefferson Memorial HospitalTBH EO #0.2NOMS Healthcare TB CSD173LuaDCJS [facility] RBC3.78LowNOBarnes-Jewish [facility] WBC4.9NOMS HealthcareCLINISYNCNOMS HealthcarePrep for Procedureon 70-96-0573Onaf for [id number] Loyd Blandon 1955 M Date Provider Department Center 02/12/2024 IRENA SCHMIDT [facility] LEAH No family history on fileNormalUniversity of Hca Houston Healthcare NorthwestMR Abdomen WO and W contrast Syed 42-41-8606HgrHouston, [place] [address] Magnetic Resonance Report Signed Patient: LOYD BLANDON MR#: [id number] : 1955 Acct:[id number] Age/Sex: 68 / M ADM Date: 01/24/24 Loc: MRI Attending Dr: Non-Staff Physician Eriberto Ordering Physician: PhysicianYolandaStaff Eriberto Date of Service: 01/24/24 Procedure(s): MR abdomen wo/w con Accession Number(s): [id number] cc: SANJAY ROBLEDO ; Physician,NonMinnieStaff Eriberto The [place] [id number] Patient Name: LOYD BLANDON MRN: [facility]:[id number] date: 1955 Sex: M Assigned Patient Location: MRI Current Patient Location: Accession/Order Number: [id number] Exam Date: 01/24/2024 13:50 Report Date: 01/25/2024 [...] patient's recent ascites. Electronically authenticated by: WARD FERRER Date: 01/25/2024 06:59 Dictated By: Ward Ferrer M.D. Signed By: 01/25/24 0701 DD/ 0659 TD/TT: Ward Maid:DUANEHRadiology, Radiologist, - 01/25/2024 [place] [address] Magnetic Resonance Report Signed Patient: LOYD BLANDON MR#: [id number] : 1955 Acct:[id number] Age/Sex: 68 / M ADM Date: 01/24/24 Loc: MRI Attending Dr: Non-Staff Physician Eriberto Ordering Physician: PhysicianNon-Staff Eriberto Date of Service: 01/24/24 Procedure(s): MR abdomen wo/w con Accession Number(s): [id number] cc: SANJAY ROBLEDO ; Physician,Non-Staff Eriberto [facility] [place] [id number] Patient Name: LOYD BLANDON MRN: [facility]:[id number] date: 1955 Sex: M Assigned Patient Location: MRI Current Patient Location: Accession/Order Number: [id number] Exam Date: 01/24/2024 13:50 Report Date: 01/25/2024 [...] patient's recent ascites. Electronically authenticated by: WARD FERRER Date: 01/25/2024 06:59 Dictated By: Ward Ferrer M.D. Signed By: 01/25/2401 DD/ 0659 TD/TT: Ward Maid: [facility] Centeriology Study observation (narrative)[facility] Abdomen WO and W contrast IVOrdered By: Radiologist Radiology on 35-16-4200ZXXKSelect Specialty Hospital Work Phone: Orders Onlyon 80-73-3118Dgfxau [id number] Loyd Blandon 1955 M Date Provider Department Center 01/25/2024 [id number], HISTORICAL MP GI Medical Pavi No family history on fileNormalUniversity of Hca Houston Healthcare NorthwestUS PARACENTESIS ABD W/IMAGEon 48-82-8473HovHouston[place] [address] Ultrasound Report Signed Patient: LOYD BLANDON MR#: [id number] : 1955 Acct:[id number] Age/Sex: 68 / M ADM Date: 01/24/24 Loc: US Attending Dr: Non-Staff Physician Eriberto Ordering Physician: PhysicianNonMinnieStaff Eriberto Date of Service: 01/24/24 Procedure(s): US paracentesis abd w/image Accession Number(s): [id number] cc: SANJAY ROBLEDO ; Physician,Non-Staff Eriberto [place] [address] Patient Name: LOYD BLANDON MRN: [facility]:[id number] date: 1955 Sex: M Assigned Patient Location: US Current Patient Location: Accession/Order Number: [id number] Exam Date: 01/24/2024 13:00 Report Date: 01/24/2024 [...] fluid; 4.5 L. Electronically authenticated by: WARD FERRER Date: 01/24/2024 15:27 Dictated By: Ward Ferrer M.D. Signed By: 01/24/24 1529 DD/ 1527 TD/TT: Ward Maid:MONTYadiologteresa Radiologist, - 01/24/2024 [place] [address] Ultrasound Report Signed Patient: LOYD BLANDON MR#: [id number] : 1955 Acct:[id number] Age/Sex: 68 / M ADM Date: 01/24/24 Loc: US Attending Dr: Non-Staff Physician MJulio Cesar Ordering Physician: Physician,Non-Staff Eriberto Date of Service: 01/24/24 Procedure(s): US paracentesis abd w/image Accession Number(s): [id number] cc: SANJAY ROBLEDO ; Physician,Non-Staff Eriberto The [place] [address] Patient Name: LOYD BLANDON MRN: [facility]:[id number] date: 1955 Sex: M Assigned Patient Location: Current Patient Location: Accession/Order Number: [id number] Exam Date: 01/24/2024 13:00 Report Date: 01/24/2024 [...] fluid; 4.5 L. Electronically authenticated by: WARD FERRER Date: 01/24/2024 15:27 Dictated By: Ward Ferrer M.D. Signed By: 01/24/241528 DD/ 26 TD/TT: Ward Maid: [facility] HospitalRadiology Study observation (narrative)[facility] Specialty HospitalUS PARACENTESIS ABD W/IMAGEOrdered By: Radiologist Radiology on 38-04-8585OKQVSelect Specialty Hospital Work Phone: US Eye+Orbit - bilateralon 15-99-4143Calfbqsyn: Cataract both eyes (OU) Testing Indication: Performed for preop measurements in the determination of an intraocular lens (IOL) for both eyes (OU) Test Reliability: Good quality both eyes (OU) Interpretation: Good measurements for intraocular lens (IOL) calculation purposes. Calculation made for both eyes (OU).[facility] Radiology Study observation (narrative)[facility]36on 22-27-164720Fbiuez sent in [facility] community hospitalNormalUniCity HospitalOrders Onlyon 01-16-2024 Orders [id number] Loyd Blandon [address] [facility] Provider Department [place] 01/16/202458553-BYJQDRENARD HAZEL GI Medical Pavi No family history on fileNormalUniCity HospitalXR ABDOMEN 1V on 55-28-7456[address] [address] XRay Report Signed Patient: LOYD BLANDON MR#: [id number] : 1955 Acct:[id number] Age/Sex: 68 / M ADM Date: 01/03/24 Loc: US Attending Dr: Non-Staff Physician Eriberto Ordering Physician: PhysicianYolandaStaff Eriberto Date of Service: 01/03/24 Procedure(s): XR abdomen 1V Accession Number(s): [id number] cc: SANJAY ROBLEDO ; PhysicianYolandaStaff Eriberto The [place] [address] Patient Name: LOYD BLANDON MRN: [facility]:[id number] date: 1955 Sex: M Assigned Patient Location: US Current Patient Location: Accession/Order Number: [id number] Exam Date: 01/03/2024 09:15 Report Date: 01/05/2024 [...] M.D. Signed By: 01/05/24710 DD/ 8 TD/TT: Ward Maid:TBHRadiology, Radiologist, MD - 01/05/2024 [place] [address] XRay Report Signed Patient: LOYD BLANDON MR#: [id number] : 1955 Acct:[id number] Age/Sex: 68 / M ADM Date: 01/03/24 Loc: US Attending Dr: Non-Staff Physician Eriberto Ordering Physician: PhysicianNonNkechi Wei Date of Service: 01/03/24 Procedure(s): XR abdomen 1V Accession Number(s): [id number] cc: SANJAY ROBLEDO ; PhysicianYolandaStaff Eriberto The [address] [id number] Patient Name: LOYD BLANDON MRN: [facility]:[id number] date: 1955 Sex: M Assigned Patient Location: US Current Patient Location: Accession/Order Number: [id number] Exam Date: 01/03/2024 09:15 Report Date: 01/05/2024 [...] M.D. Signed By: 01/05/24710 DD/ 8 TD/TT: Ward Maid: [facility] HospitalRadiology Study observation (narrative)Select Specialty HospitalXR ABDOMEN 1VOrdered By: Radiologist Radiology on 32-78-1225FFOYSelect Specialty Hospital Work Phone: elch AFP TUMOR MARKERon 32-22-9564QXG, SERUM, TUMOR MARKER2.5 ng/mL0.0 - 8.4 ng/mLNOMS HealthcareComment on above:[employer] Electrochemiluminescence Immunoassay (ECLIA) Values obtained with different assay methods or kits cannot be used interchangeably. Results cannot be interpreted as absolute evidence of the presence or absence of malignant disease. This test is not interpretable in females. Performed at: [facility] [employer] [id number] Honey Producer: John Tang PhD, Phone: [phone] [facility] HospitalOrders Onlyon 35-86-8606Rufdjc [id number] Loyd Blandon 1955 M Date Provider Department Center 01/04/2024 [id number], HISTORICAL MP GI Medical Pavi No family history on fileNormalUniversity of Hca Houston Healthcare Northwest36on 55-58-063435Oizzlt patient with results with his repeat BMP [...] the day prior or the day of MRI.[facility]36----- Message from Rachel Doan MA sent at 01/03/2024 9:53 AM EDT ----- A new document has been added to this order with description [facility] Lab results.The MetroHealth SystemLon 01-03-2024L Specimen: [id number] Received: 01/09/24 Status: HUSAM Estuardo Num: [id number] Spec Type: Cytology Subm Dr: Autumn Farnsworth MD Tissues: A ASCITES (ASCITES) Procedures: HE/2, Gross/Micro L4, Cyto Prepstain, PAPSTN Age/ Patient Sex Location Account Attending Physician Loyd Blandon 68/M LABELL [id number] Autumn Farnsworth MD SPEC NUM: [id number] RECD: 01/09/24 STATUS: HUSAM MARTE NUM: [id number] WEN: 01/03/[address]: Autumn Farnsworth MD ENTERED: 01/09/[address] [facility] [address]: SPEC TYPE: Cytology DEPT: [facility] ENTERED BY: [id number] RECV BY: [id number] ORDERED: HE/2, Gross/Micro L4, Cyto Prepstain, PAPSTN [...] are prepared for microscopic examination. (MG/kp) Specimen: [id number] Received: 01/09/24 Status: HUSAM Marte Num: [id number] Spec Type: Cytology Subm Dr: Autumn Farnsworth MD Tissues: A ASCITES (ASCITES) Procedures: HE/2, Gross/Micro L4, Cyto Prepstain, PAPSTN Patient: Loyd Blandon [id number] (Continued) Specimen: [id number] Received: 01/09/24 (Continued) Signed (signature on file) Windy Duque MD 01/10/24 1758 Specimen: [id number] Received: 01/09/24 Status: HUSAM Marte Num: [id number] Spec Type: Cytology Subm Dr: Autumn Farnsworth MD Tissues: A ASCITES (ASCITES) Procedures: HE/2, Gross/Micro L4, Cyto Prepstain, PAPSTN Patient: Loyd Blandon [id number] (Continued) Specimen: [id number] Received: 01/09/24 (Continued) Microscopic Description Microscopic examinations are performed supporting the above interpretation CPT Codes 33956 18736 Specimen: [id number] Received: 01/09/24 Status: HUSAM Marte Num: [id number] Spec Type: Cytology Subm Dr: Autumn Farnsworth MD Tissues: A ASCITES (ASCITES) Procedures: HE/2, Gross/Micro L4, Cyto Prepstain, PAPSTN Patient: Loyd Blandon [id number] (Continued) Signed (signature on file) Chin-Fabio Duque MD 01/10/[address] [place] [address] Physician GroupMarcum And Wallace [facility] Onlyon 86-17-9784Klhgbz Only [id number] Loyd Blandon 1955 M Date Provider Department Center 01/03/2024 [id number], HISTORICAL MP GI Medical Pavi No family history on fileNormalUniversOhioHealthRMCOH PROTHROMBIN TIME INR W/O COUMon 07-74-3201Ugpqjvnpkzpfzj and review of laboratory resultsAbnormalNOMS HealthcarePT Coag (PPP) [Time]12.2 sHighNDoctors Hospital of SpringfieldTBH INR1.17NOIL HealthcareComment on above:DESIRED INR: 2.0-3.0 CONDITIONS NOT LISTED BELOW 2.5-3.5 FOR PROSTHETIC HEART VALVE REPLACEMENT 2.5-3.5 RECURRENT THROMBOSIS CLINISYNCNOMS HealthcareTelephoneon [id number] Loyd Blandon 1955 Date Provider Department Center 01/03/2024 3856-MARITO OQUENDO [facility] GASTRO None No family history on fileNormalUniversity of Hca Houston Healthcare NorthwestUS PARACENTESIS ABD W/IMAGEon 09-25-8856Bzb [address] [address] Ultrasound Report Signed Patient: LOYD BLANDON MR#: [id number] : 1955 Acct:[id number] Age/Sex: 68 / M ADM Date: 01/03/24 Loc: US Attending Dr: Non-Staff Physician Eriberto Ordering Physician: Physician,Non-Staff Eriberto Date of Service: 01/03/24 Procedure(s): US paracentesis abd w/image Accession Number(s): [id number] cc: SANJAY ROBLEDO ; Physician,Non-Staff Eriberto The [address] [address] Patient Name: LOYD BLANDON MRN: [facility]:[id number] date: 1955 Sex: M Assigned Patient Location: US Current Patient Location: US Accession/Order Number: [id number] Exam Date: 01/03/2024 08:00 Report Date: 01/03/2024 [...] Dictated By: Autumn Farnsworth M.D. Signed By: 01/03/2441 DD/ 8 TD/TT: Ward Maid:TBHRadiology, Radiologist, - 01/03/[address] [address] Ultrasound Report Signed Patient: LOYD BLANDON MR#: [id number] : 1955 Acct:[id number] Age/Sex: 68 / M ADM Date: 01/03/24 Loc: US Attending Dr: Non-Staff Physician Eriberto Ordering Physician: PhysicianYolandaStaff Eriberto Date of Service: 01/03/24 Procedure(s): US paracentesis abd w/image Accession Number(s): [id number] cc: SANJAY ROBLEDO ; Physician,YolandaStaff Eriberto The [address] [address] Patient Name: LOYD BLANDON MRN: [id number] date: 1955 Sex: M Assigned Patient Location: US Current Patient Location: Accession/Order Number: [id number] Exam Date: 01/03/2024 08:00 Report Date: 01/03/2024 [...] M.D. Signed By: 01/03/24940 DD/ 8 TD/TT: Ward Maid: EDDIE HealthcareRadiology Study observation (narrative)EDDIE HealthcareUS PARACENTESIS ABD W/IMAGEOrdered By: Radiologist Radiology on 31-32-9038MIGO [employer] Work Phone: [phone] 13-34-303438Eptpnb patient to clarify Lasix dosage, instructed to take Lasix 60mg daily. expressed understanding. I did instruct her that we would like repeat BMP to assess potassium and Creatinine, Monday or Monday. She is planning to have this done at [facility] on Monday. I did provide the fax number to our clinic for results. She is awaiting scheduling for MRI and Abdominal XR at [place].[facility] SystemRefillon [id number] Loyd Blandon 1955 M [facility] Provider Department Center 12/30/202305506-SBHIFRENARD TAYLOR MP GI Medical Pavi No family history on file Reason for Visit and Comments: Med Refill [[id number]][facility]36on Patient's called in to say that the lab at [place] told her insurance doesn't cover the Enteric Bacterial DNA stool and it is $1500, they told her if we sent in an order for a stool culture is would be similar and insurance would cover that. Also the lab doesn't do the fecal fat 24 hours, but will do the fecal fat 72 hours. Please advise.[facility]36 Patient's calling again for clarification of lasix dosage 60mg daily on the office note, 60mg BID on the prescription. She is concerned about giving him the correct dosage and frequency.[facility] Documentationon [id number] Loyd Blandon [address] [facility] Provider Department Center 12/29/2023 ZAKIYA GRANADOS MP GI Medical Pavi No family history on fileNormalUniversity of Hca Houston Healthcare NorthwestOrders Onlyon 32-33-0630Azzmgk [id number] Loyd Blandon [address] [facility] Provider Department Center 12/29/20232030-EKATERINA ALMODOVAR [facility] GURPREETI No family history on fileNormalUniversity Bellevue HospitalTelephoneon [id number] Loyd Blandon 1955 M Date Provider Department Center 12/29/2023 BROOKLYNN ZEPEDA MP [facility] Pavi No family history on [facility]36on 11-90-769293Fqlcrec's calling for clarification of Lasix dosage, on discharge plan it is written as 60mg daily, but the pharmacy gave her a bottle of lasix where the sig is written 60mg twice daily. She anxious and wants to make sure she gives him the correct dosage and frequency.Please advise.NormalAvita Health System Ontario HospitalTelephoneon [id number] Loyd Blandon 1955 M Date Provider Department Center 12/28/2023 43964-MUZDRKBROOKLYNN MORALES MP [facility] Pavi No family history on [facility]37on 64-05-214267Ju your way out today, please get lab work and stool tests. [...] (same day). This can be done at [place]. Please continue Rifaximin 550mg twice daily, and Lactulose once daily for encephalopathy Schedule a follow up appointment in 3 months.NormalUnAdena Health SystemAFP TUMOR MARKERon 42-58-9542IQKTQ FETOPROTEIN TUMOR MARKER3 ng/mLNormal 0-9UnAdena Health SystemComment on above:Result Comment: INTERPRETIVE INFORMATION: Alpha Fetoprotein Tumor Marker The Ryan [...] reference intervals for this test in the [facility] Test Directory (Floor64). Performed By: [employer] [address] [place] [address] [address] Driver: Ira Lutz MD, PhD CLIA Number: [id number] By: #### [id number] ####[facility] ([facility])[address] [place], [place] [address]KEQun 54-58-0488Tpzavsuiolf distribution width (RBC) [Ratio]15.1 %High11.5-15.0UnAdena Health SystemComment on above:Performed By: #### [id number] ####[facility] (BEAKER)[address] [place], [place] [address]ZUGIYKLQVLV MEAN CORPUSCULAR HEMOGLOBIN CONCENTRATION (G/DL) BY SYVCFCBHZ02.2 g/nYSwdceh86.0-35.0UnAdena Health SystemComment on above:Performed By: #### [id number] ####[facility] (BEAKER)[address] [place], [place] [address]Cnkrixjsfm (Bld) [Volume fraction]38.5 %Low39.0-55.0 [facility] System Ontario HospitalComment on above:Performed By: #### [id number] ####[facility] (BEAKER)[address] [place], [place] [address]Bmugzapdqi (Bld) [Mass/Vol]12.8 g/dLLow13.0-17.0UnAdena Health SystemComment on above:Performed By: #### [id number] ####[facility] (BEAKER)[address] [place], [place] [address]YRM (RBC) [Entitic mass]32.8 dcMfhern99.0-33.0UnAdena Health SystemComment on above:Performed By: #### [id number] ####[facility] ([facility])[address] [address]GRE (RBC) [Entitic vol] 98.7 wNZmuf61.0-98.0UnAdena Health SystemComment on above: Performed By: #### [id number] ####[facility] ([facility])[address] [address]NDYOUUFXS (10*3/UL) IN BLOOD AUTOMATED JOVVA899 10*3/uLNormal 150-400UnAdena Health SystemComment on above:Performed By: #### [id number] ####[facility] ([facility])[address] [address]RIY (Bld) [#/Vol]3.90 10*6/uLLow4.20-5.70UnAdena Health SystemComment on above:Performed By: #### [id number] ####[facility] ([facility])[address] [place] [address]SFT (Bld) [#/Vol]4.72 10*3/uLNormal4.00-10.60UnAdena Health SystemComment on above:Performed By: #### [id number] ####[facility] ([facility])[address] [address]JAGDUASLHMDJQ METABOLIC PANELon 04-11-3631Dazryur [Mass/Vol]3.1 g/dLLow3.5-5.7UnAdena Health SystemComment on above:Performed By: #### LAB17 ####[facility] ([facility])[address] [address]EIP [Catalytic activity/Vol]120 U/L Fuax90-875VdbzdoqkolAdena Health SystemComment on above:Performed By: #### LAB17 ####[facility] ([facility])[address] [place], [place] [address]OWG [Catalytic activity/Vol]25 U/LNormal7-52UnAdena Health System Comment on above:Performed By: #### LAB17 ####[facility] ([facility])[address] [place], [place] [address]Ywmsu gap [Moles/Vol]12 mmol/LNormal7-20UnAdena Health SystemComment on above:Performed By: #### [id number] ####[facility] ([facility])[address] [place], [place] [address]KHS [Catalytic activity/Vol]46 U/ADgnj01-81UjgyrcdusuAdena Health SystemComment on above: Performed By: #### LAB17 ####[facility] ([facility])[address] [place], [place] [address]Fgttphxtt [Mass/Vol]1.9 mg/dLHigh0.3-1.0UnAdena Health SystemComment on above:Performed By: #### LAB17 ####[facility] ([facility])[address] [place], [place] [address]Zpcqqoj [Mass/Vol]9.0 mg/dLNormal 8.6-10.3UnAdena Health SystemComment on above:Performed By: #### LAB17 ####[facility] ([facility])[address] [place], [place] [address]Mvmpoumv [Moles/Vol]98 mmol/IOnxuwb30-427ZiliryspdcAdena Health SystemComment on above:Performed By: #### LAB17 ####[facility] ([facility])[address] [place], [place] [address]HI6 [Moles/Vol]26 mmol/HIbcbtd65-42EysdfhrochAdena Health SystemComment on above:Performed By: #### LAB17 ####[facility] ([facility])[address] [place], [place] [address]Dxakmtdtwd [Mass/Vol]1.11 mg/dLNormal 0.70-1.30UnAdena Health SystemComment on above:Performed By: #### LAB17 ####[facility] ([facility])[address] [place] [address]JPMCRCYWCZ FILTRATION RATE ML/MIN/1.73 SQ M.MCPYFIXXW46.4 mL/min/1.73m*2Normal>60.0 [facility] Ontario HospitalComment on above:Result Comment: The [facility]???s estimated glomerular filtration rate (eG FR) will no longer include consideration of race [...] potential consequences that do not disproportionately affect anyone group of individuals. Performed By: #### [id number] ####[facility] ([facility])[address] [place] [address]Xjdbtea [Mass/Vol]111 mg/kDPnke54-213PbxwvftwnrAdena Health SystemComment on above:Performed By: #### [id number] ####[facility] ([facility])[address] [place] [address]Znluvfpie [Moles/Vol]4.4 mmol/LNormal 3.5-5.1UnAdena Health SystemComment on above:Performed By: #### [id number] ####[facility] ([facility])[address] [place] [address]Thfnkxb [Mass/Vol]7.3 g/dLNormal6.0-8.3UnAdena Health SystemComment on above:Performed By: #### LAB17 ####[facility] ([facility])[address] [place] [address]Ejjqpk [Moles/Vol]132 mmol/DYim464-478IppoqobaajAdena Health SystemComment on above:Performed By: #### [id number] ####[facility] ([facility])[address] [place] [address]Gcye nitrogen [Mass/Vol]17 mg/dLNormal 7-25UnAdena Health SystemComment on above:Performed By: #### LAB17 ####[facility] (BEAKER)[address] [place] [address]XFAT NITROGEN/CREATININE (MASS RATIO) IN SER/PLAS15.3NormalUniCity HospitalComment on above:Performed By: #### LAB17 ####[facility] (BEAKER)[address] [place] [address]Gselz [id number] JamiaLoyd 1955 M Date Provider Department Center 12/27/2023 2244-[facility] MP LAB RESOURCE MP DRAW Medical Pavi No family history on fileNormalUniversMercy Health St. Vincent Medical CenterOffice Visiton 49-10-4748Zkeano-up [id number] Loyd Blandon 1955 M Date Provider Department Center 12/27/2023 298-IRENA JOHNSON GI Medical Pavi No family history on file Level of Service:16135 [place] OFFICE/OUTPATIENT ESTABLISHED HIGH MDM 40 MIN (GC) Reason for Visit and Comments: Follow-up [958973] Cirrhosis [239] Ascites [295]NormalUnAdena Health SystemPROTIME-INRon 12-27-2023 INR IN PPP BY COAGULATION ASSAY1.42Wvuf7.90-1.10UnAdena Health SystemComment on above:Result Comment: ACCCP RECOMMENDED INR FOR WARFARIN THERAPY CONDITION INR PROPHYLAXIS OF VENOUS THROMBOSIS 2-3 (HIGH-RISK SURGERY) TREATMENT OF VENOUS THROMBOSIS 2-3 TREATMENT OF PULMONARY EMBOLISM 2-3 PREVENTION OF SYSTEMIC EMBOLISM: 2-3 ACUTE MYOCARDIAL INFARCTION TISSUE HEART VALVES VALVULAR HEART DISEASE ATRIAL FIBRILLATION RECURRENT SYSTEMIC EMBOLISM MECHANICAL HEART VALVE 2.5-3.5 FROM: ORAL ANTICOAGULANTS. MECHANISM OF ACTION, CLINICAL EFFECTIVENESS, AND OPTIMAL THERAPEUTIC RANGE. CHEST 1995;108:231S-246S.Performed By: #### [id number] #### [facility] (BEAKER) [address] [place], [place] [address]RIYCLDQJPJG TIME (PT) IN PPP BY COAGULATION ASSAY15.3 Seconds High12.3-14.8UnAdena Health SystemComment on above:Performed By: #### [id number] #### [facility] (BEAKER) [address] [place], [place] [address]qz 23-64-725170R called and spoke with the patient's in regards to his recent lab work after increasing his diuretics. His creatinine and electrolytes are grossly stable after increasing his Lasix and Aldactone. We will continue with the current regimen of Lasix 40 twice daily and Aldactone 200 mg daily and follow-up in hepatology clinic on 12/27/2023.NormalUnAdena Health SystemELCH AFP TUMOR MARKERon 23-00-3194YCE, SERUM, TUMOR MARKER2.7 ng/mL0.0 - 8.4 ng/mL Select Specialty HospitalComment on above:[facility] Electrochemiluminescence Immunoassay (ECLIA) Values obtained with different assay methods or kits cannot be used interchangeably. Results cannot be interpreted as absolute evidence of the presence or absence of malignant disease. This test is not interpretable in females. Performed at: [facility] Lab[address] [id number] Honey Producer: John Tang PhD, Phone: [phone] CLINISYNCNOMS HealthcareOrders Onlyon 91-50-8134Kuytyx [id number] Loyd Blandon 1955 M Date Provider Department Center 12/21/2023 L2270-ZLFBMYYWMAGALIS MOORE MP GI Medical Pavi No family history on fileNormalUniversity of Hca Houston Healthcare NorthwestTelephoneon [id number] Loyd Blandon 1955 M Date Provider Department Center 12/21/2023 98070-BFONO, RENARD MP GI Medical Pavi No family history on fileNormalUniversity of Hca Houston Healthcare NorthwestALL CBC WITH AUTO DIFFon 52-47-6986CMXOTNMFC ABSOLUTE AUTO0.0NOMS HealthcareBasophils/100 WBC (Bld)0.8 %0.2 - 2.0 %NOMS HealthcareEosinophils/100 WBC (Bld)2.7 %0.9 - 7.0 % NOMS HealthcareErythrocyte distribution width (RBC) [Ratio]14.9 %11.0 - 15.0 % NOMS HealthcareHematocrit (Bld) [Volume fraction]37.6 %Low42.0 - 54.0 %NOMMissouri Rehabilitation CenterHemoglobin (Bld) [Mass/Vol]12.7 g/dLLow14.0 - 18.0 g/dLNOJefferson Memorial Hospital IMMATURE GRANULOCYTES ABS AUTO0.02NOMS Wilson HealthImmature granulocytes/100 WBC (Bld)0.4 %0.0 - 0.5 %NOM HealthcareInterpretation and review of laboratory resultsAbnormalNOJefferson Memorial HospitalLYMPHOCYTES ABSOLUTE AUTO0.7LowNOMS Healthcare Lymphocytes/100 WBC (Bld)15.2 %Low20.5 - 60.0 %[facility] Summit HospitalH (RBC) [Entitic mass]33.6 pg25.9 - 34.0 pgNOMoberly Regional Medical CenterHC (RBC) [Mass/Vol]33.8 g/dL29.9 - 35.2 g/dLNOJefferson Memorial HospitalMCV (RBC) [Entitic vol]99.5 yBHehf32.0 - 94.0 fLNOJefferson Memorial HospitalMONOCYTES ABSOLUTE AUTO0.6NOMS HealthcareMonocytes/100 WBC (Bld)11.9 % 1.7 - 12.0 %NOMS HealthcareNEUTROPHILS ABSOLUTE AUTO3.3NOM[facility] Healthcare Neutrophils/100 WBC (Bld)69.0 %43.0 - 75.0 %NOMS HealthcarePlatelet mean volume (Bld) [Entitic vol]9.8 fL9.5 - 13.5 fLNOJefferson Memorial HospitalTBH EO #0.1NOMS Healthcare TB FSP785OOQS Wilson HealthTB RBC3.78LowNOMS Wilson HealthTB WBC4.8NOMS Healthcare CLINISYNCNOMS HealthcareCA ECHO DOPPLER COMPLETEon 96-36-9090Axm [place] [id number] Cardiology Report Signed Patient: LOYD BLANDON MR#: [id number] : 1955 Acct:[id number] Age/Sex: 68 / M ADM Date: 12/20/23 Loc: CARD Attending Dr: XUAN ESPNIO Ordering Physician: XUAN ESPINO Date of Service: 12/20/23 Procedure(s): CA echo doppler complete Accession Number(s): [id number] cc: SANJAY ROBLEDO ; XUAN ESPINO Patient Name: LOYD BLANDON MR#: [id number] : 1955 Exam Date: 12/20/2023 Ordering Doctor: DR XUAN MALDONADO ECHOCARDIOGRAM REPORT PROCEDURE: CA ECHO DOPPLER [...] 3.77 cm2, 3.49 cm2, 4.08 cm2 Deceleration Davison: Pressure Half-Time: Peak Velocity(Antegrade Flow): 0.98 m/s, [...] mm[Hg], 1.97 mm[Hg], 3.32 mm[Hg] Right Atrium Righ (more content not included)...TBHRadiology, Radiologist, - 12/20/2023 [place] [address] Cardiology Report Signed Patient: LOYD BLANDON MR#: [id number] : 1955 Acct:[id number] Age/Sex: 68 / M ADM Date: 12/20/23 Loc: CARD Attending Dr: XUAN ESPINO Ordering Physician: XUAN ESPINO Date of Service: 12/20/23 Procedure(s): CA echo doppler complete Accession Number(s): [id number] cc: SANJAY ROBLEDO ; XUAN ESPINO Patient Name: LOYD BLANDON MR#: [id number] : 1955 Exam Date: 12/20/2023 Ordering Doctor: DR XUAN MALDONADO ECHOCARDIOGRAM REPORT PROCEDURE: CA ECHO DOPPLER [...] 3.77 cm2, 3.49 cm2, 4.08 cm2 Deceleration Davison: Pressure Half-Time: Peak Velocity(Antegrade Flow): 0.98 m/s, [...] Dictated By: Siena Herrera M.D. Signed By: 12/20/231720 DD/ 19 TD/TT: Ward Maid: [facility] Specialty HospitalRadiology Study observation (narrative)[facility] ECHO DOPPLER COMPLETEOrdered By: Radiologist Radiology on 80-95-6046[facility] Work Phone: Orders Onlyon 08-40-0838Ulrbzi [id number] Loyd Blandon 1955 M Date Provider Department Center 12/20/2023 M9964-NARYQMZN, HISTORICAL MP GI Medical Pavi No family history on fileNormalUniversity Bellevue Hospital36on 43-68-026911Sawlwg faxed lab orders to [facility]36----- Message from Renard Hazel MD sent at 12/14/2023 1:36 PM EDT ----- Petra, I sent over a prescription for his diuretics and recommended that they have repeat CMP next week. The order has been placed, can you please fax this to [facility] so that they can get them done next week? Thank you so much ----- Message ----- From: Rachel Doan MA Sent: 12/13/2023 1:35 PM EDT To: Renard Hazel MD A new document has been added to this order with description CMP results [facility]36Patient's called last week asking for increased prescription dose [...] assess his diuretics further at that time. [facility] SystemOrders Onlyon 44-97-8258Hbcenp Only [id number] Loyd Blandon 1955 M Date Provider Department Center 12/14/202361612-JJRFBRENARD HAZEL MP Medical Pavi No family history on [facility] CenterTelephoneon [id number] Loyd Blandon 1955 M Date Provider Department Center 12/14/202338384-ZHYYGRENARD HAZEL MP Medical Pavi No family history on [facility] Medical CenterCCF CMP (CMP) (FOR REMOTE [facility] USE)on 66-58-7686Aawvhfe [Mass/Vol]2.5 g/dLLow3.4 - 5.0 g/dLNOMS HealthcareALBUMIN GLOBULIN RATIO0.6NOMS HealthcareALP [Catalytic activity/Vol] 112 U/L46 - 116 U/LNOMS HealthcareALT [Catalytic activity/Vol]26 U/L16 - 63 U/L NOMS HealthcareAnion gap [Moles/Vol]15.4 mmol/LNOMS HealthcareAST [Catalytic activity/Vol]50 U/LHigh15 - 37 U/LNOMS HealthcareBilirubin [Mass/Vol]2.1 mg/dL High0.2 - 1.0 mg/dLNOMS HealthcareCalcium [Mass/Vol]9.1 mg/dL8.5 - 10.1 mg/dL NOMS HealthcareChloride [Moles/Vol]100 mmol/L98 - 107 mmol/LNOMS HealthcareCO2 [Moles/Vol]24.4 mmol/L21.0 - 32.0 mmol/LNOMS HealthcareCreatinine [Mass/Vol]1.29 mg/dL0.70 - 1.30 mg/dLNOMS HealthcareGFR/1.73 sq M.predicted CKD-EPI (S/P/Bld) [Vol rate/Area]>6060 - PINFNOMS HealthcareGlobulin (S) [Mass/Vol]4.4 g/dLNOMS HealthcareGlucose [Mass/Vol]97 mg/dL74 - 106 mg/dLNOMS HealthcareInterpretation and review of laboratory resultsAbnormalNOMS HealthcarePotassium [Moles/Vol]4.8 mmol/L3.5 - 5.1 mmol/LNOMS HealthcareProtein [Mass/Vol]6.9 g/dL6.4 - 8.2 g/dL NOMS HealthcareSodium [Moles/Vol]135 mmol/APwv321 - 145 mmol/LNOMS HealthcareTBH EGFR-NON AF RQVIMXMN04Zui16 - PINFNOMS HealthcareUrea nitrogen [Mass/Vol]15.0 mg/dL7.0 - 18.0 mg/dLNOMS HealthcareUrea nitrogen/Creatinine [Mass ratio]11.6 mg/mgNOMS HealthcareCLINISYNCNOMS HealthcareOrders Onlyon 57-70-6472Anmchp Only [id number] Loyd Blandon 1955 M Date Provider Department [place] 12/13/2023 F1199-JJEVQCLA, HISTORICAL MP GI Medical Pavi No family history on fileNormalUniversity of Hca Houston Healthcare Northwest36on 88-99-858474Xdsjttw's reports that the patient was recently hospitalized in [...] has an appointment in hepatology clinic on 12/27/2023.[facility]36Wife of patient calls today stating that when they went for paracentesis at [place] last week - the patient was admitted. [...] until clinic visit with Dr. Johnson on 12/27/2023.Doctors HospitalOrders Onlyon 64-79-6345Wkfjll [id number] Loyd Blandon 1955 M Date Provider Department Center 12/11/202379607-PYKIRRENARD TAYLOR MP Medical Pavi No family history on fileNormalUniCity HospitalTelephoneon [id number] Loyd Blandon 1955 M Date Provider Department Center 12/11/202348403-MRSIZRENARD HAZEL MP Medical Pavi No family history on fileNormalUniCity HospitalGRAM STAIN RESULTon 66-77-8664VHXV STAIN RESULT Gram Stain Result NOMS HealthcareGRAM STAIN RESULTNo white blood cells seen.NOMS HealthcareGRAM STAIN RESULTNOMS HealthcareGRAM STAIN RESULTNo organisms seenNOMS HealthcareGRAM STAIN RESULTPerformed at: - [facility] HealthcareGRAM STAIN RESULT [address] [place], [place] [address]JRRR HealthcareGRAM STAIN RESULTLab Director: John Tang PhD, Phone: [phone] Scott & White Medical Center – [facility] Pleural fluid CLINISYNCNOMS HealthcareLon 28-29-2455IHpwkueph: Received: 12/11/23 Status: HUSAM Marte Num: [id number] Spec Type: Cytology Subm Dr: Devyn Winter DO Tissues: A PLEURAL FLUID (PLEUR) Procedures: HE/2, Gross/Micro L4, Cyto Prepstain, PAPSTN Age/ Patient Sex Location Account Attending Physician Loyd Blandon 68/M LABELL [id number] Devyn Winter DO SPEC NUM: [id number] RECD: 12/11/23 STATUS: HUSAM PATELMartin NUM: [id number] WEN: 12/08/[address]: Devyn Winter DO ENTERED: 12/11/[address]: Aliza Arroyo SPEC TYPE: Cytology DEPT: [facility] ENTERED BY: [id number] RECV BY: [id number] ORDERED: HE/2, Gross/Micro L4, Cyto Prepstain, PAPSTN [...] above interpretation Specimen: Received: 12/11/23 Status: SERAEmilie Marte Num: [id number] Spec Type: Cytology Subm Dr: Devyn Winter DO Tissues: A PLEURAL FLUID (PLEUR) Procedures: HE/2, Gross/Micro L4, Cyto Prepstain, PAPSTN Patient: Loyd Blandon [id number] (Continued) Specimen: [id number] Received: 12/11/23 (Continued) Signed (signature on file) Windy Duque MD 12/14/23 1503 Specimen: [id number] Received: 12/11/23 Status: HUSAM Marte Num: [id number] Spec Type: Cytology Subm Dr: Devyn Winter DO Tissues: A PLEURAL FLUID (PLEUR) Procedures: HE/2, Gross/Micro L4, Cyto Prepstain, PAPSTN Patient: JamiaLoyd [id number] (Continued) Specimen: Received: 12/11/23 (Continued) CPT Codes 67322 22593 Specimen: Received: 12/11/23 Status: HUSAM Marte Num: [id number] Spec Type: Cytology Subm Dr: Devyn Winter DO Tissues: A PLEURAL FLUID (PLEUR) Procedures: HE/2, Gross/Micro L4, Cyto Prepstain, PAPSTN Patient: Loyd Blandon [id number] (Continued) Signed (signature on file) Windy Duque MD 12/14/23 [facility] Physician GroupLon 69-73-1121GNkmwfkdz: BC24 Received: 12/14/23 Status: HUSAM Remartin Num: [id number] Spec Type: Cytology Subm Dr: Ward Ferrer MD Tissues: A ASCITES (ASC) Procedures: HE/2, Gross/Micro L4, Cyto Prepstain, PAPSTN Age/ Patient Sex Location Account Attending Physician Loyd Blandon 68/M LABELL [id number] Ward Ferrer MD SPEC NUM: [id number] RECD: 12/14/23 STATUS: SERAEmilie MARTE NUM: [id number] WEN: 12/07/23- SUBM DR: Ward Ferrer MD ENTERED: 12/14/[address] [facility] [address]: Dina,Lab SPEC TYPE: Cytology DEPT: [facility] ENTERED BY: [id number] RECV BY: [id number] ORDERED: HE/2, Gross/Micro L4, Cyto Prepstain, PAPSTN [...] interpretation Specimen: [id number] Received: 12/14/23 Status: HUSAM Marte Num: [id number] Spec Type: Cytology Subm Dr: Ward Ferrer MD Tissues: A ASCITES (ASC) Procedures: HE/2, Gross/Micro L4, Cyto Prepstain, PAPSTN Patient: JamiaLoyd [id number] (Continued) Specimen: BC Received: 12/14/23 (Continued) Signed (signature on file) Windy Duque MD 12/19/23 1440 Specimen: Received: 12/14/23 Status: HUSAM Marte Num: [id number] Spec Type: Cytology Subm Dr: Ward Ferrer MD Tissues: A ASCITES (ASC) Procedures: HE/2, Gross/Micro L4, Cyto Prepstain, PAPSTN Patient: JamiaLoyd [id number] (Continued) Specimen: Received: 12/14/23 (Continued) CPT Codes 97449 47891 Specimen: Received: 12/14/23 Status: HUSAM Marte Num: [id number] Spec Type: Cytology Subm Dr: Ward Ferrer MD Tissues: A ASCITES (ASC) Procedures: HE/2, Gross/Micro L4, Cyto Prepstain, PAPSTN Patient: Loyd Blandon [id number] (Continued) Signed (signature on file) Windy Duque MD 12/19/[address] [place] [address] Physician GroupUS PARACENTESIS ABD W/IMAGEon 12-07-[address] [address] Ultrasound Report Signed Patient: LOYD BLANDON MR#: [id number] : 1955 Acct:[id number] Age/Sex: 68 / M ADM Date: 12/07/23 Loc: US Attending Dr: Non-Staff Physician M.DAshley Ordering Physician: Physician,Non-Staff MJulio Cesar Date of Service: 12/07/23 Procedure(s): US paracentesis abd w/image Accession Number(s): [id number] cc: SANJAY ROBLEDO ; Physician,Non-Staff MJulio Cesar [address] [address] Patient Name: LOYD BLANDON MRN: [id number] date: 1955 Sex: M Assigned Patient Location: ED.MAIN Current Patient Location: ED.MAIN Accession/Order Number: [id number] Exam Date: 12/07/2023 12:20 Report Date: 12/07/2023 [...] patient instability (see above). Electronically authenticated by: WARD FERRER Date: 12/07/2023 15:11 Dictated By: Ward Ferrer M.D. Signed By: 12/07/23 1513 DD/ 1511 TD/TT: Ward Maid:MONTYadiologteresa, Radiologist, - 12/07/2023 [place] [address] Ultrasound Report Signed Patient: LOYD BLANDON MR#: [id number] : 1955 Acct:[id number] Age/Sex: 68 / M ADM Date: 12/07/23 Loc: US Attending Dr: Bryanna-Staff Physician Wei Ordering Physician: Maddy Duarte M.D. Date of Service: 12/07/23 Procedure(s): US paracentesis abd w/image Accession Number(s): [id number] cc: SANJAY ROBLEDO ; PhysicianMaddy M.D. The [address] [address] Patient Name: LOYD BLANDON MRN: [id number] date: 1955 Sex: M Assigned Patient Location: ED.MAIN Current Patient Location: ED.MAIN Accession/Order Number: [id number] Exam Date: 12/07/2023 12:20 Report Date: 12/07/2023 [...] patient instability (see above). Electronically authenticated by: WARD FERRER Date: 12/07/2023 15:11 Dictated By: Ward Ferrer M.D. Signed By: 12/07/23 1513 DD/ 1511 TD/TT: Ward Maid: EDDIE HealthcareRadiology Study observation (narrative)EDDIE MixUS PARACENTESIS ABD W/IMAGEOrdered By: Radiologist Radiology on 23-74-0725ALFY [employer] Work Phone: [phone] [phone]. Burns in clinic, order placed and faxed to [facility] at [phone] Hospital36Wife calls stating that patient is in need of an order for paracentesis. Order will need to be sent to [facility] SystemOrders Onlyon 10-06-3851Khvfru [id number] Loyd Blandon 1955 M Date Provider Department Center 12/01/202312002-JORFNRENARD HAZEL MP GI Medical [facility]avi No family history on fileNormalUniversity of Hca Houston Healthcare NorthwestHPon 02-22-5058CW Attestation signed by Irena Johnson MD at 11/27/2023 10:41 AM I personally saw and examined the patient on the same date of service as fellow. I discussed the findings and therapeutic plan with the fellow. I agree with the documentation, except for any edits/updates below. Gastroenterology History and Physical Note IDENTIFYING DATA PATIENT: Loyd Blandon HISTORY OF PRESENT ILLNESS Lyod Blandon is a 68 y.o. male who [...] PROT B12/Folate/Iron studies: No results found for: KVCHFPTB22 , FOLATE , IRON , TIBC , UIBC , IRONSAT , FERRITIN ASSESSMENT AND PLAN Loyd Blandon is a 68 y.o. male who has a known past medical history significant for alcoholic liver cirrhosis, Recinos's esophagus and hepatic encephalopathy is scheduled today for an EGD for esophageal varices screening. Plan: Plan for EGD today for esophageal varices secondary to liver cirrhosis.Normal [facility] HospitalPOCT GLUCOSE METER UNSOLICITED RESULTSon 26-12-3394Wcnzkzc [Mass/Vol]101 mg/eWUxronn99-785YthxqvxhylAdena Health SystemComment on above:Order Comment: Waived Testing in the ED is performed under the ED CLIA certificate #[id number].Result Comment: jhsusiemanPerformed By: #### [id number] ####[facility] (BEAKER)[address] [place], [place] [address] on 77-65-951849Maqjli submittedNormalUniversMercy Health St. Vincent Medical CenterOrders Onlyon 94-98-1458Tjxlyu [id number] Loyd Blandon 1955 M Date Provider Department Center 11/21/2023 BROOKLYNN ZEPEDA MP GI Medical Pavi No family history on fileNormalUniversity Bellevue HospitalPrep for Procedureon 24-33-4250Snhj for [id number] Loyd Blandon 1955 M Date Provider Department Center 11/21/2023 IRENA SCHMIDT [facility]ISC [place] No family history on fileNormalUniversity Bellevue HospitalMR ABDOMEN W AND WO CONTRASTon 44-41-7057IB ABDOMEN W AND WO CONTRASTHistory: Cirrhosis with indeterminate liver lesion demonstrated on [...] contrast CT recommended. Electronically signed: Adalid Montiel. 9Invalid Interpretation CodeUnAdena Health SystemOrders Only12-89-6445Vpymud [id number] Loyd Blandon 1955 M [facility] Department Center 11/08/2023 93965-NQQCYQ, BETH GI [facility]avi No family history on fileNormalUniversMercy Health St. Vincent Medical Center36on 34-29-203558Zbnuqqv's calling to verify that Dr. Miles will now be prescribing the Famotidine and Baclofen because the previously prescribing physician no longer will now that he is a [facility] GI patient. The preferred pharmacy is [facility] in [place]. Please advise and these orders can then be pended.NormalUnAdena Health SystemOrders Only22-00-6883Hvcrdh [id number] Loyd Blandon 1955 M Date [facility] Department Center 11/02/2023 P1436-LESWCXRI, [facility] MP GI Medical Pavi No family history on fileNormalUniversity of Hca Houston Healthcare Northwest36on 92-32-162859R called the patient and his to discuss [...] undergoing MRI of his liver on the .[facility] SystemOrders Onlyon 30-56-0521Flylxe [id number] Loyd Blandon 1955 M Date Provider Department Center 10/26/202333103-RNLQIRENARD HAZEL MP [facility] No family history on fileNormalUniverspremier health upper valley medical center of Hca [facility] Healthcare NorthwestTelephoneon [id number] Loyd Blandon 1955 M Date Provider Department Center 10/26/202369811-AWGMIRENARD HAZEL MP [facility] No family history on fileNormalUniverspremier health upper valley medical center of [facility]ca [facility] Healthcare NorthwestOrders Onlyon 42-56-0007Ulelcj [id number] Loyd Blandon 1955 M Date Provider Department Center 10/24/2023 [id number], [facility] No family history on fileNormalUniverspremier health upper valley medical center of Hca [facility] Healthcare NorthwestALL BASIC METABOLIC PANELon 52-66-1438Zatjy gap [Moles/Vol]14.7 mmol/LNOMS Healthcare Calcium [Mass/Vol]9.2 mg/dL8.5 - 10.1 mg/dLNOMS HealthcareChloride [Moles/Vol] 100 mmol/L98 - 107 mmol/LNOMS HealthcareCO2 [Moles/Vol]24.7 mmol/L21.0 - 32.0 mmol/LNOMS HealthcareCreatinine [Mass/Vol]1.40 mg/dLHigh0.70 - 1.30 mg/dLNOMS HealthcareGFR/1.73 sq M.predicted CKD-EPI (S/P/Bld) [Vol rate/Area]>6060 - PINF [facility] Specialty HospitalGlucose [Mass/Vol]130 mg/dVEjcv06 - 106 mg/dLSelect Specialty Hospital Interpretation and review of laboratory resultsAbnoUniversal Health ServicesPotassium [Moles/Vol]4.4 mmol/L3.5 - 5.1 mmol/LNOMS HealthcareSodium [Moles/Vol]135 mmol/L Tmf321 - 145 mmol/LNDoctors Hospital of SpringfieldTBH EGFR-NON AF QLPOXJNI89Bew74 - PINFNOJefferson Memorial HospitalUrea nitrogen [Mass/Vol]19.0 mg/dLHigh7.0 - 18.0 mg/dLSelect Specialty Hospital Urea nitrogen/Creatinine [Mass ratio]13.6 mg/mgSelect Specialty HospitalCLINISYNCNDoctors Hospital of SpringfieldALL CBC WITH AUTO DIFFon 93-53-4433HFCDEUPLD ABSOLUTE AUTO0.0NOJefferson Memorial HospitalBasophils/100 WBC (Bld)0.8 %0.2 - 2.0 %Select Specialty HospitalEosinophils/100 WBC (Bld)2.6 %0.9 - 7.0 %Select Specialty HospitalErythrocyte distribution width (RBC) [Ratio]14.6 %11.0 - 15.0 %Select Specialty HospitalHematocrit (Bld) [Volume fraction]37.5 %Low42.0 - 54.0 %[facility] Specialty HospitalHemoglobin (Bld) [Mass/Vol]12.8 g/dLLow14.0 - 18.0 g/dLSelect Specialty HospitalIMMATURE GRANULOCYTES ABS AUTO0.03NOJefferson Memorial Hospital Immature granulocytes/100 WBC (Bld)0.6 %High0.0 - 0.5 %[facility] Interpretation and review of laboratory resultsAbnoUniversal Health Services LYMPHOCYTES ABSOLUTE AUTO0.8LowSelect Specialty HospitalLymphocytes/100 WBC (Bld)15.2 %Low 20.5 - 60.0 %Select Specialty HospitalMCH (RBC) [Entitic mass]34.0 pg25.9 - 34.0 pgSelect Specialty HospitalMCHC (RBC) [Mass/Vol]34.1 g/dL29.9 - 35.2 g/dLSelect Specialty HospitalMCV (RBC) [Entitic vol]99.7 rMUryf88.0 - 94.0 fLSelect Specialty HospitalMONOCYTES ABSOLUTE AUTO0.7 NOMS HealthcareMonocytes/100 WBC (Bld)14.0 %High1.7 - 12.0 %[facility] Healthcare NEUTROPHILS ABSOLUTE AUTO3.4NOMS HealthcareNeutrophils/100 WBC (Bld)66.8 %43.0 - 75.0 %NOMS HealthcarePlatelet mean volume (Bld) [Entitic vol]9.8 fL9.5 - 13.5 fL [facility] HealthcareTBH EO #0.1NOMS HealthcareTB SWR854IDXP Wilson HealthTB RBC3.76Low NOMWashington County Memorial Hospital WBC5.1NOMS HealthcareCLINISYNCNSt. Lukes Des Peres HospitalOH PROTHROMBIN TIME INR W/O COUMon 43-02-8661Axkoezrrmsyjqh and review of laboratory resultsAbnormalNOMS HealthcarePT Coag (PPP) [Time]12.2 sHighNPershing Memorial Hospital INR1.17NOMS HealthcareComment on above:DESIRED INR: 2.0-3.0 CONDITIONS NOT LISTED BELOW 2.5-3.5 FOR PROSTHETIC HEART VALVE REPLACEMENT 2.5-3.5 RECURRENT THROMBOSIS CLINISYNCNOMS HealthcareUS PARACENTESIS ABD W/IMAGEon 78-82-8627YeqHouston, [place] [address] Ultrasound Report Signed Patient: LOYD BLANDON MR#: [id number] : 1955 Acct:[id number] Age/Sex: 68 / M ADM Date: 10/23/23 Loc: US Attending Dr: Non-Staff Physician Eriberto Ordering Physician: Physician,Non-Staff Eriberto Date of Service: 10/23/23 Procedure(s): US paracentesis abd w/image Accession Number(s): [id number] cc: SANJAY ROBLEDO ; Physician,Non-Staff Eriberto The [address] [address] Patient Name: LOYD BLANDON MRN: [id number]:[id number] date: 1955 Sex: M Assigned Patient Location: US Current Patient Location: US Accession/Order Number: [id number] Exam Date: 10/23/2023 13:05 Report Date: 10/23/2023 [...] Signed By: 10/23/23 1506 DD/ 1503 TD/TT: Ward Maid:TBHRadiology, Radiologist, - 10/23/2023 [place] [address] Ultrasound Report Signed Patient: LOYD BLANDON MR#: [id number] : 1955 Acct:[id number] Age/Sex: 68 / M ADM Date: 10/23/23 Loc: US Attending Dr: Non-Staff Physician Eriberto Ordering Physician: Yolanda DuarteStaff Eriberto Date of Service: 10/23/23 Procedure(s): US paracentesis abd w/image Accession Number(s): [id number] cc: SANJAY ROBLEDO ; Yolanda DuarteStaff Eriberto The [place] [id number] Patient Name: LOYD BLANDON MRN: [id number] date: 1955 Sex: M Assigned Patient Location: US Current Patient Location: US Accession/Order Number: [id number] Exam Date: 10/23/2023 13:05 Report Date: 10/23/2023 [...] Signed By: 10/23/23 1506 DD/ 1503 TD/TT: Ward Maid: EDDIE MixRadiology Study observation (narrative)EDDIE MixUS PARACENTESIS ABD W/IMAGEOrdered By: Radiologist Radiology on 85-66-0023ZVJG [employer] Work Phone: Orders Onlyon 98-55-8588Nummkb [id number] Loyd Blandon 1955 M Date Provider Department Center 10/20/2023 Olinda-RUFINO MATHUR [facility] No family history on fileNormalUniversity of Hca [facility] Healthcare Northwest36on 27-93-688858Q called the patient's to discuss the results of his recent [...] that we can follow-up on his sodium level.Normal [facility]36Patients called stating they were called yesterday afternoon [...] call back from you to clarify some things.NormalAvita Health System Ontario HospitalOrders Onlyon 85-54-4982Bjvccv [id number] JamiaLoyd 1955 M Date Provider Department Center 10/18/2023 EKATERINA ALMARAZ [facility] GE[place] No family history on fileNormalUniversMercy Health St. Vincent Medical CenterTelephoneon [id number] Loyd Blandon 1955 M Date Provider Department Center 10/18/202389446-VQGMIRENARD TAYLOR MP GI Medical Pavi No family history on fileNormalUniversity Bellevue HospitalOrders Onlyon 33-73-6094Yeqtnb [id number] JamiaLoyd 1955 M Date Provider Department Center 10/17/202358460-VNGRXRENARD ESPOSITO MP GI Medical Pavi No family history on fileNormalUniversMercy Health St. Vincent Medical CenterDocumentation on [id number] Loyd Blandon 1955 M Date Provider Department Center 10/16/2023 JOSH NICOLE [facility] Pavi No family history on file Reason for Visit and Comments: Specialty Pharmacy Note: Xifaxan PAP [Other]NormalUnAdena Health SystemPrep for Procedureon 78-06-9284Muwa for [id number] Loyd Blandon 1955 M Date Provider Department Center 10/16/2023 298-IRENA JOHNSON [facility] [place] No family history on fileNormalUniversMercy Health St. Vincent Medical CenterBASIC METABOLIC PANELon 28-11-8019Xihsd gap [Moles/Vol]14 mmol/LNormal7-20UnAdena Health SystemComment on above:Performed By: #### [id number] #### [facility] ([facility]) [address] [place], [place] [address]Wxkmwdr [Mass/Vol]9.1 mg/dLNormal8.6-10.3UnAdena Health SystemComment on above:Performed By: #### [id number] #### [facility] ([facility]) [address] [place], [place] [address]Ayepmyei [Moles/Vol]96 mmol/DZtc05-696JeexbpcjvoAdena Health SystemComment on above:Performed By: #### [id number] #### [facility] ([facility]) [address] [place], [place] [address]LO0 [Moles/Vol]22 mmol/NDodjoj56-67BonfqijxumAdena Health SystemComment on above:Performed By: #### [id number] #### [facility] ([facility]) [address] [place], [place] [address]Xaxkghkoqv [Mass/Vol]1.00 mg/dLNormal0.70-1.30UnAdena Health SystemComment on above:Performed By: #### [id number] #### [facility] ([facility]) [address] [place] [address]RCHPASSSDD FILTRATION RATE ML/MIN/1.73 SQ M.DWNMECFKC39.0 mL/min/1.73m*2Normal>60.0UnAdena Health SystemComment on above: Result Comment: [facility] [...] potential consequences that do not disproportionately affect anyone group of individuals.Performed By: #### [id number] #### [facility] ([facility]) [address] [place] [address]Kpsdzto [Mass/Vol]108 mg/nMWfvb38-481VgdthtwsepAdena Health SystemComment on above:Performed By: #### [id number] #### [facility] ([facility]) [address] [place], [place] [address]Yzffmnyyb [Moles/Vol]4.8 mmol/LNormal3.5-5.1UnAdena Health SystemComment on above:Performed By: #### [id number] #### [facility] ([facility]) [address] [place] [address]Egzuqa [Moles/Vol]127 mmol/VEgi090-053DltzrghgdaAdena Health SystemComment on above:Performed By: #### [id number] #### [facility] ([facility]) [address] [place], [place] [address]Vjnj nitrogen [Mass/Vol]13 mg/dLNormal7-25UnAdena Health SystemComment on above:Performed By: #### [id number] #### [facility] ([facility]) [address] [facility]ITALLeón QUIJANOJENN[place]SM[place], [place] [address]SLTX NITROGEN/CREATININE (MASS RATIO) IN SER/PLAS13.0Normal [facility] HospitalComment on above:Performed By: #### [id number] #### [facility] ([facility]) [address] [place] [address]POAxw 20-87-8375Njxltqhntdi distribution width (RBC) [Ratio]14.2 %Kfbfao11.5-15.0UnAdena Health SystemComment on above:Performed By: #### [id number] #### [facility] ([facility]) [address] [place] [address]OBGDMPLLMKP MEAN CORPUSCULAR HEMOGLOBIN CONCENTRATION (G/DL) BY OIAYJTJOV71.5 g/nLNdvkco41.0-35.0UnAdena Health SystemComment on above:Performed By: #### [id number] #### [facility] ([facility]) [address] [place] [address]Kvjjtxbajg (Bld) [Volume fraction]38.0 %Low39.0-55.0UnAdena Health SystemComment on above:Performed By: #### [id number] #### [facility] ([facility]) [address] [place] [address]Rhuppkjqvj (Bld) [Mass/Vol]13.1 g/uULgfegu91.0-17.0UnAdena Health SystemComment on above:Performed By: #### [id number] #### [facility] ([facility]) [address] [place] [address]LPI (RBC) [Entitic mass]34.4 mhLcnn19.0-33.0UnAdena Health SystemComment on above:Performed By: #### [id number] #### [facility] ([facility]) [address] [place] [address]ZBK (RBC) [Entitic vol]99.7 cCYlat33.0-98.0UnAdena Health SystemComment on above:Performed By: #### [id number] #### [facility] ([facility]) [address] [place] [address]CINQLQROX (10*3/UL) IN BLOOD AUTOMATED QNMUY413 10*3/uLNormal 150-400UnAdena Health SystemComment on above:Performed By: #### [id number] #### [facility] ([facility]) [address] [place] [address]YYX (Bld) [#/Vol]3.81 10*6/uLLow4.20-5.70UnAdena Health SystemComment on above:Performed By: #### [id number] #### [facility] ([facility]) [address] [place] [address]VDN (Bld) [#/Vol]6.20 10*3/uLNormal4.00-10.60UnAdena Health SystemComment on above:Performed By: #### [id number] #### [facility] ([facility]) [address] [place] [address]YOSDSGI FUNCTION PANELon 32-70-4589Ckwalli [Mass/Vol]3.4 g/dLLow 3.5-5.7UnAdena Health SystemComment on above:Performed By: #### [id number] #### [facility] ([facility]) [address] [place] [address]QJX [Catalytic activity/Vol]114 U/EVsgl18-863DxmjfbqviwAdena Health SystemComment on above:Performed By: #### [id number] #### [facility] ([facility]) [address] [place] [address]IBR [Catalytic activity/Vol]23 U/LNormal7-52UnAdena Health SystemComment on above:Performed By: #### [id number] #### [facility] ([facility]) [address] [place], [place] [address]EVW [Catalytic activity/Vol]48 U/KKgpt54-22WfqpmprvqiAdena Health SystemComment on above:Performed By: #### [id number] #### [facility] ([facility]) [address] [place] [address]Kfhwmpioi [Mass/Vol]1.5 mg/dLHigh0.3-1.0UnAdena Health SystemComment on above:Performed By: #### [id number] #### [facility] (LAURA) [address] [place] [address]Pbnhgaceo [Mass/Vol]0.5 mg/dLHigh0-0.2UnAdena Health SystemComment on above:Performed By: #### [id number] #### [facility] ([facility]) [address] [place] [address]Fgepaxj [Mass/Vol]7.8 g/dLNormal6.0-8.3UnAdena Health SystemComment on above:Performed By: #### [id number] #### [facility] (MILLIE) [address] [place] [address]Jkwqx [id number] Loyd Blandon 1955 M Date Provider Department Center 10/13/2023 2244-[facility] MP LAB RESOURCE MP DRAW Medical Pavi No family history on fileNormalUniversity Bellevue HospitalOffice Visiton 23-21-6253Rfegvz-up [id number] Loyd Blandon 1955 M Date Provider Department Center 10/13/2023 298-IRENA JOHNSON GI Medical Pavi No family history on file Level of Service:59301 [place] OFFICE/OUTPATIENT ESTABLISHED HIGH MDM 40 MIN () Reason for Visit and Comments: Cirrhosis [239] Ascites [295]NormalUnAdena Health SystemPROTIME-INRon 10-13-2023 INR IN PPP BY COAGULATION ASSAY1.90Yaqn7.90-1.10UnAdena Health SystemComment on above:Result Comment: ACCCP RECOMMENDED INR FOR WARFARIN THERAPY CONDITION INR PROPHYLAXIS OF VENOUS THROMBOSIS 2-3 (HIGH-RISK SURGERY) TREATMENT OF VENOUS THROMBOSIS 2-3 TREATMENT OF PULMONARY EMBOLISM 2-3 PREVENTION OF SYSTEMIC EMBOLISM: 2-3 ACUTE MYOCARDIAL INFARCTION TISSUE HEART VALVES VALVULAR HEART DISEASE ATRIAL FIBRILLATION RECURRENT SYSTEMIC EMBOLISM MECHANICAL HEART VALVE 2.5-3.5 FROM: ORAL ANTICOAGULANTS. MECHANISM OF ACTION, CLINICAL EFFECTIVENESS, AND OPTIMAL THERAPEUTIC RANGE. CHEST 1995;108:231S-246S.Performed By: #### [id number] #### [facility] ([employer]) [address] [place], [place] [address]QURBKXLOIOH TIME (PT) IN PPP BY COAGULATION ASSAY14.9 Seconds High12.3-14.8UnAdena Health SystemComment on above:Performed By: #### [id number] #### [facility] (AKER) [address] [place], [place] [address]Wyirir Onlyon 43-53-3002Tvrzsn [id number] Loyd Blandon 1955 M Date Provider Department [place] 10/06/2023 Y5231-RNBJXVKI, HISTORICAL MP GI Medical Pavi No family history on fileNormalUniversity of Hca Houston Healthcare NorthwestALL MISCELLANEOUS TESTon 47-11-6513UUTNNIOPNDTDF TESTCOMMENT.NOMS HealthcareComment on above:Test Ordered: [id number] Albumin, Body Fluid Albumin, Body Fluid 0.4 g/dL Reference Range: Not Estab. The reference interval(s) and other method performance specifications have not been established for this body fluid. The test result must be integrated into the clinical context for interpretation. Performed at: - Lab[address] [id number] [employer] Producer: John Tang PhD, Phone: [phone] Albumin, Body Fluid CLINISYNCNo Panel Informationon 52-69-3912KYNX HealthcarePROTEIN, BODY FLUIDon 88-13-2985HQZECPO, BODY FLUID1.1 g/dL.NOMS HealthcareComment on above: : BODY FLUID TYPE : TOTAL PROTEIN [...] V. Reference Intervals for Adults and Children 2008. Ninth Edition (V9.1) [employer], [facility]; [place]: October 2008. Performed at: [facility] [address] [id number] Honey Producer: John Tang PhD, Phone: [phone] CLINISYNCCELL CT, SEROUS FLUIDon 75-20-3827WQOMAQW, SEROUSSlightly hazyClearNOMS HealthcareCOLOR, SEROUSStraw.NOMS HealthcareComment on above:Colorless to Pale Yellow/Straw COMMENTS:TNP.NOMS HealthcareEosinophils/100 WBC (Bld)0 %Not Estab.NOMS HealthcareLINING CELLS, SEROUS7 %Not Estab.NOMS HealthcareComment on above: Performed at: - Labco[address] [id number] [employer] Producer: John Tang PhD, Phone: [phone] Lymphocytes/100 WBC (Bld)9 %Not Estab.NOMS HealthcareMACROPHAGES, NKDKDT19 %Not Estab.NOMS HealthcareNeutrophils/100 WBC (Bld)13 %0 - 24 %[facility] NUCLEATED CELLS, NNEPZG561 /mm30 - 499 /zv1AEBD HealthcareComment on above: Pleural Fluid, with <1000 Nucleated cells/uL has been associated with transudates while >1000 uL may be seen in exudates. RBC (Bld) [#/Vol]0 10*6/uLNot Estab.NOMS HealthcareCLINISYNCNOMS HealthcareIGG, SUBCLASSES(1-4)on 01-02-6832ZLT, SUBCLASS 1855 mg/tKBchxidch213 - 810 mg/dLNOMS HealthcareIGG, SUBCLASS 2365 mg/dL130 - 555 mg/dLNOMS HealthcareIGG, SUBCLASS 3 68 mg/dL15 - 102 mg/dLNOMS HealthcareIGG, SUBCLASS 452 mg/dL2 - 96 mg/dLNOMS HealthcareComment on above:Performed at: [facility] LabMichel[place] [id number] [employer] Producer: John Tang PhD, Phone: [phone] IMMUNOGLOBULIN G, QN, BXYTH5853 mg/dL603 - 1613 mg/dLNOMS Healthcare Interpretation and review of laboratory resultsAbnormalSelect Specialty HospitalCLINISYN NOMS HealthcareUS PARACENTESIS ABD W/IMAGEon 46-19-3059[address] [address] Ultrasound Report Signed Patient: LOYD BLANDON MR#: [id number] : 1955 Acct:[id number] Age/Sex: 68 / M ADM Date: 10/03/23 Loc: US Attending Dr: Jason Miles M.D. Ordering Physician: Jason Miles M.D. Date of Service: 10/03/23 Procedure(s): US paracentesis abd w/image Accession Number(s): [id number] cc: SANJAY ROBLEDO ; Jason Miles M.D. [address] [address] Patient Name: LOYD BLANDON MRN: [id number] date: 1955 Sex: M Assigned Patient Location: US Current Patient Location: US Accession/Order Number: [id number] Exam Date: 10/03/2023 10:50 Report Date: 10/03/2023 13:11 At the request of: JASON MILES Procedure: US paracentesis abd w/image EXAMINATION: [...] Laboratory results are pending. Electronically authenticated by: WARD FERRER Date: 10/03/2023 13:11 Dictated By: Ward Ferrer M.D. Signed By: 10/03/23 1314 DD/ 1311 TD/TT: Ward Maid:TBHRadiology, Radiologist, - 10/03/2023 [place] [address] Ultrasound Report Signed Patient: LOYD BLANDON MR#: [id number] : 1955 Acct:[id number] Age/Sex: 68 / M ADM Date: 10/03/23 Loc: US Attending Dr: Jason Miles M.D. Ordering Physician: Jason Miles M.D. Date of Service: 10/03/23 Procedure(s): US paracentesis abd w/image Accession Number(s): [id number] cc: SANJAY ROBLEDO ; Jason Miles M.D. The [address] [address] Patient Name: LOYD BLANDON MRN: [facility]:[id number] date: 1955 Sex: M Assigned Patient Location: US Current Patient Location: US Accession/Order Number: [id number] Exam Date: 10/03/2023 10:50 Report Date: 10/03/2023 13:11 At the request of: JASON MILES Procedure: US paracentesis abd w/image EXAMINATION: [...] Laboratory results are pending. Electronically authenticated by: WARD FERRER Date: 10/03/2023 13:11 Dictated By: Ward Ferrer M.D. Signed By: 10/03/23 1314 DD/ 1311 TD/TT: Ward Maid: EDDIE HealthcareRadiology Study observation (narrative)EDDIE MixUS PARACENTESIS ABD W/IMAGEOrdered By: Radiologist Radiology on [id number] Work Phone: Orders Onlyon [id number] [id number] Loyd Blandon 1955 M Date Provider Department Center 09/27/2023 204-HARSHA CONNER [facility] No family history on fileNormalUniversity Bellevue HospitalCREATININE, SERUMon [id number] [Mass/Vol]1.06 mg/dLNormal0.70-1.30UnAdena Health SystemComment on above:Performed By: #### [id number] #### [facility] (BEAKER) [address], [place] [address]WDUCZZEZKG FILTRATION RATE ML/MIN/1.73 SQ M.ZXYFUXHFT24.5 mL/min/1.73m*2Normal>60.0UnAdena Health SystemComment on above: Result Comment: The [facility] [...] potential consequences that do not disproportionately affect anyone group of individuals.Performed By: #### [id number] #### [facility] (MILLIE) [address] [place], [place] [address]ZIG ABDOMEN PELVIS W IV CONTRASTon 51-36-5856RKO ABDOMEN PELVIS W IV CONTRASTCLINICAL INFORMATION: Abdominal pain. Generalized abdominal pain. Mesenteric [...] DEPARTMENT. Electronically signed: Camila Gan MD. Not Eran Interpretation CodeUnAdena Health SystemLabon [id number] JamiaLoyd rivera 1955 M Date Provider Department Center 09/25/2023 2245-[facility] LAB RESOURCE [facility] NE Medical C No family history on fileNormalUniversity of Hca Houston Healthcare NorthwestOrders Onlyon 42-41-7656Ivxdkq [id number] JamiaLoyd rivera 1955 M Date Provider Department Center 09/23/2023 204-[facility] No family history on fileNormalUniversity of Hca Houston Healthcare NorthwestOrders Only87-36-5508Zuiijb [id number] Jamia,Loyd 1955 M Date Provider Department Center 09/15/2023 BROOKLYNN ZEPEDA MP GI Medical Pavi No family history on fileNormalUniversity of Hca Houston Healthcare NorthwestOrders Onlyon 32-30-8494Qaneko [id number] Loyd Blandon 1955 M Date Provider Department Center 09/14/2023 BROOKLYNN ZEPEDA MP GI Medical Pavi No family history on fileNormalUniversity of Hca Houston Healthcare NorthwestMR HEAD/BRAIN WO CONon 79-15-6614[place], [place] [address] Magnetic Resonance Report Signed Patient: LOYD BLANDON MR#: [id number] : 1955 Acct:[id number] Age/Sex: 68 / M ADM Date: 09/12/23 Loc: MRI Attending Dr: Ward Esparza M.D. Ordering Physician: WARD ESPARZA Date of Service: 09/12/23 Procedure(s): MR head/brain wo con Accession Number(s): [id number] cc: WARD ESPARZA ; SANJAY ROBLEDO [place] [id number] Patient Name: LOYD BLANDON MRN: [id number] date: 1955 Sex: M Assigned Patient Location: MRI Current Patient Location: MRI Accession/Order Number: [id number] Exam Date: 09/12/2023 08:17 Report Date: 09/12/2023 11:15 At the request of: WARD ESPARZA Procedure: MR head/brain wo con EXAMINATION: [...] account for patient's symptoms. Electronically authenticated by: WARD FERRER Date: 09/12/2023 11:15 Dictated By: Ward Ferrer M.D. Signed By: 09/12/23 1117 DD/ 1115 TD/TT: Ward Maid:MONTYadiologteresa, Radiologist, - 09/12/2023 [place] [address] Magnetic Resonance Report Signed Patient: LOYD BLANDON MR#: [id number] : 1955 Acct:[id number] Age/Sex: 68 / M ADM Date: 09/12/23 Loc: MRI Attending Dr: Ward Esparza M.D. Ordering Physician: WARD ESPARZA Date of Service: 09/12/23 Procedure(s): MR head/brain wo con Accession Number(s): [id number] cc: WARD ESPARZA ; SANJAY ROBLEDO [place] [address] Patient Name: LOYD BLANDON MRN: [id number] date: 1955 Sex: M Assigned Patient Location: MRI Current Patient Location: MRI Accession/Order Number: [id number] Exam Date: 09/12/2023 08:17 Report Date: 09/12/2023 11:15 At the request of: WARD ESPARZA Procedure: MR head/brain wo con EXAMINATION: [...] account for patient's symptoms. Electronically authenticated by: WARD FERRER Date: 09/12/2023 11:15 Dictated By: Ward Ferrer M.D. Signed By: 09/12/23 1117 DD/ 1115 TD/TT: Ward Maid: EDDIE HealthcareRadiology Study observation (narrative)[facility] HEAD/BRAIN WO CONOrdered By: Radiologist Radiology on 75-49-9732[facility] Work Phone: Orders Onlyon 49-14-4359Miwjkg [id number] Loyd Blandon 1955 M Date Provider Department Center 08/28/2023 [id number], HISTORICAL MP GI Medical Pavi No family history on fileNormalUniversity of Hca Houston Healthcare NorthwestBasophils Auto (Bld) [#/Vol]Ordered By: Brayan Alves on 47-47-3094Lqduekfve (Bld) [#/Vol] 0.0 10*3/uL0.0-0.2FDayton Osteopathic HospitalBasophils/100 WBC Auto (Bld) Ordered By: Brayan Alves on 77-91-8167Nccaqgdnb/100 WBC (Bld)0.7 %. [facility] CenterCalcium [Mass/volume] in Serum or PlasmaOrdered By: Brayan Alves on 49-22-4260Vvpxcvn [Mass/Vol]8.6 mg/dL8.6-10.3FDayton Osteopathic HospitalCarbon dioxide, total [Moles/volume] in Serum or Plasma Ordered By: Brayan Alves on 59-62-5569IE5 [Moles/Vol]27.3 mmol/L21.0-31.0 [facility] CenterChloride [Moles/volume] in Serum or Plasma Ordered By: Brayan Alves on 40-12-6476Uyynptxi [Moles/Vol]96 mmol/L98-107 [facility] CenterCreatinine [Mass/volume] in Serum or Plasma Ordered By: Brayan Alves on 36-11-9379Cqzedmpklf [Mass/Vol]1.07 mg/dL 0.70-1.30[facility] Medical CenterEosinophils Auto (Bld) [#/Vol]Ordered By: Brayan Alves on 32-60-3920Vuakvxgkokd (Bld) [#/Vol]0.1 10*3/uL0.0-0.45 [facility] CenterEosinophils/100 WBC Auto (Bld)Ordered By: Brayan Alves on 07-89-6812Ixivyhnefjw/100 WBC (Bld)1.9 %.[facility] Medical CenterErythrocyte distribution width Auto (RBC) [Ratio]Ordered By: Brayan Alves on 65-26-6619Buxubjqvssb distribution width (RBC) [Ratio]13.8 %12.0-14.8[facility] Medical CenterGlucose [Mass/volume] in Serum or PlasmaOrdered By: Brayan Alves on 34-33-6617Tvnbvsq [Mass/Vol]132 mg/dL 70-100[facility] Medical CenterComment on above:ADA recommended reference rangeRandom Glucose Reference Range is dependent on time and content of last meal. Glucose of more than 200 mg/dL in a nonstressed, ambulatory subject supports the diagnosisof Diabetes Mellitus.Hematocrit Auto (Bld) [Volume fraction]Ordered By: Brayan Alves on 20-77-6266Nkbjckilry (Bld) [Volume fraction]35.5 %38.8-50.0[facility] Medical CenterHemoglobin [Mass/volume] in BloodOrdered By: Brayan Alves on 91-12-6806Dgglotlhmv (Bld) [Mass/Vol]12.5 g/dL13.0-17.0[facility] Medical CenterLeukocytes [#/volume] corrected for nucleated erythrocytes in Blood by Automated coun Ordered By: Brayan Alves on 29-53-6424COV corrected for nucl RBC Auto (Bld) [#/Vol]5.7 10*3/uL4.1-10.5FDayton Osteopathic HospitalLymphocytes Auto (Bld) [#/Vol]Ordered By: Brayan Alves on 58-10-6868Kwdfvwwzhcr (Bld) [#/Vol]0.7 10*3/uL1.00-4.8[facility] Medical CenterLymphocytes/100 WBC Auto (Bld)Ordered By: Brayan Alves on 05-37-4053Bhgcfinlimg/100 WBC (Bld) 13.2 %.[facility] Auto (RBC) [Entitic mass]Ordered By: Brayan Alves on 59-10-8026WOY (RBC) [Entitic mass]36.2 pg27.5-35.2FDayton Osteopathic HospitalMCHC Auto (RBC) [Mass/Vol]Ordered By: Brayan Alves on 18-96-1281UNHU (RBC) [Mass/Vol]35.2 g/dL32.5-35.6FDayton Osteopathic HospitalMCV Auto (RBC) [Entitic vol]Ordered By: Brayan Alves on 81-64-2596ZSJ (RBC) [Entitic vol]102.9 fL83.5-101[facility] Medical CenterMonocytes Auto (Bld) [#/Vol]Ordered By: Brayan Alves on 81-30-3780Fwpzejasg (Bld) [#/Vol]0.9 10*3/uL0.0-0.8[facility] Medical CenterMonocytes/100 WBC Auto (Bld)Ordered By: Brayan Alves on 25-69-8286Ghfkckjdd/100 WBC (Bld)15.7 %. [facility] Medical CenterNeutrophils Auto (Bld) [#/Vol]Ordered By: Brayan Alves on 49-24-3242Knxuxzlwvxa (Bld) [#/Vol]3.9 10*3/uL1.8-7.7 [facility] CenterNeutrophils/100 WBC Auto (Bld)Ordered By: Brayan Alves on 78-04-6311Zdwjnpebahf/100 WBC (Bld)68.5 %.[facility] CenterNo Panel InformationOrdered By: Brayan Alves on 16-83-9123Mxeduaize GFR (CKD-EPI)> 60.0 mL/MinKettering Health Behavioral Medical Center Pharmacy Creatinine Clearance (ChemN/AFDayton Osteopathic HospitalNucleated erythrocytes [Presence] in Blood by Automated countOrdered By: Brayan Alves on 38-66-8525Boaexjtya RBC Auto Ql (Bld)0.1 /100{WBC}0-0.5FDayton Osteopathic HospitalPlatelet mean volume Auto (Bld) [Entitic vol]Ordered By: Brayan Alves on 79-66-2791Evmhhmhz mean volume (Bld) [Entitic vol]8.1 fL 6.6-10.1FDayton Osteopathic HospitalPlatelets Auto (Bld) [#/Vol]Ordered By: Brayan Alves on 38-03-7309Npgqrstom (Bld) [#/Vol]153 10*3/mG798-896 [facility] CenterPotassium [Moles/volume] in Serum or Plasma Ordered By: Brayan Alves on 00-35-3286Jjfjibyjd [Moles/Vol]4.8 mmol/L 3.5-5.1FDayton Osteopathic HospitalRBC Auto (Bld) [#/Vol]Ordered By: Brayan Alves on 89-36-4178FPD (Bld) [#/Vol]3.45 10*6/uL3.90-5.60Grant Hospitalerum or plasma anion gap determinationOrdered By: Brayan Alves on 22-68-0055Ggzsd gap [Moles/Vol]13.5 mmol/L6.0-15.0Grant Hospitalodium [Moles/volume] in Serum or PlasmaOrdered By: Brayan Alves on 43-87-1615Kepana [Moles/Vol]132 mmol/F223-724SwtbbpapzKettering Health Behavioral Medical CenterUrea nitrogen [Mass/volume] in Serum or PlasmaOrdered By: Brayan Alves on 15-19-7217Yalv nitrogen [Mass/Vol]12 mg/dL7-25[facility] CenterWBC Auto (Bld) [#/Vol]Ordered By: Brayan Alves on 54-68-5622NUE (Bld) [#/Vol]5.7 10*3/uL4.1-10.5FDayton Osteopathic Hospital Albumin [Mass/volume] in Serum or Plasma by Bromocresol green (BCG) dye binding methoOrdered By: Rick Ortega on 71-86-0340Bizsxjq BCG dye [Mass/Vol]3.0 g/dL 3.5-5.7FDayton Osteopathic HospitalBilirubin.total [Mass/volume] in Serum or PlasmaOrdered By: Rick Ortega on 85-41-0585Gdrxrgjlo [Mass/Vol]1.3 mg/dL 0.3-1.0[facility] CenterComment on above:Samples from patients who have taken Naproxen have shown spurious elevation in Total Bilirubin levels. A metabolite of Naproxen, O-desmethylnaproxen, has been shown to interfere with the Baljit-Barrington method for measuring Total Bilirubin.Calcium [Mass/volume] in Serum or PlasmaOrdered By: Rick Ortega on 14-10-7979Lefwyer [Mass/Vol]8.3 mg/dL8.6-10.3FDayton Osteopathic HospitalCarbon dioxide, total [Moles/volume] in Serum or PlasmaOrdered By: Rick Ortega on 48-77-8073DU3 [Moles/Vol]27.3 mmol/L21.0-31.0[facility] Medical CenterComprehensive Metabolic Panelon 26-44-7238Hnpoytj [Mass/Vol]3.147209 g/dLLow3.5-5.7 g/dLNortWashington Health System [employer] Other bilirubin [Mass/Vol]1.8668572 mg/dLHigh0.3-1.0 mg/dL [employer] Other Calcium [Mass/Vol]8.3674431 mg/dLLow8.6-10.3 mg/dL [employer] Other CO2 [Moles/Vol]27.71709136 mmol/DCdkbvu59.0-31.0 mmol/LNPaperV Other Creatinine [Mass/Vol]0.34090698 mg/dLNormal0.70-1.30 mg/dLNoVotigo [employer] Other GFR/1.73 sq M.predicted MDRD (S/P/Bld) [Vol rate/Area] mL/min/{1.73_m2}[employer] Other Potassium [Moles/Vol]5.86801391 mmol/LNormal3.5-5.1 mmol/LNdeaconess incarnate word health system [employer] Other Protein [Mass/Vol]6.222946 g/dLLow6.4-8.9 g/dLNoVotigo [employer] Other Comprehensive Metabolic Panel3.3 g/dLRPX Corporation Other Comprehensive Metabolic PanelOrdered By: Rick Ortega on 90-93-0885Nvdlira/Globulin [Mass ratio]0.9 {ratio}[facility] Medical CenterALP [Catalytic activity/Vol]158 U/U33-861ZgoizdsguKettering Health Behavioral Medical CenterALT [Catalytic activity/Vol]35 U/L7-52[facility] CenterAST [Catalytic activity/Vol]76 U/P39-00PeihhamgfKettering Health Behavioral Medical CenterChloride [Moles/Vol]95 mmol/P23-541MbpchsbjjK[facility] Health Behavioral Medical Center Glucose [Mass/Vol]94 mg/zB57-315EgenzwztbKettering Health Behavioral Medical CenterComment on above:ADA recommended reference rangeRandom Glucose Reference Range is dependent on time and content of last meal. Glucose of more than 200 mg/dL in a nonstressed, ambulatory subject supports the diagnosisof Diabetes Mellitus. Sodium [Moles/Vol]127 mmol/Y292-780Cnbtwwgcc Regional Medical CenterUrea nitrogen [Mass/Vol]9 mg/dL7-25[facility] CenterCreatinine [Mass/volume] in Serum or PlasmaOrdered By: Rick Ortega on 04-12-2023 Creatinine [Mass/Vol]0.81 mg/dL0.70-1.30[facility] Globulin Calc (S) [Mass/Vol]Ordered By: Rick Ortega on 79-88-5098Nyiybtgx (S) [Mass/Vol]3.3 g/dLKettering Health Behavioral Medical CenterNo Panel InformationOrdered By: Rick Ortega on 73-63-3493Btjbcmfar GFR (CKD-EPI)> 60.0 mL/MinKettering Health Behavioral Medical CenterPharmacy Creatinine Clearance (ChemN/[facility] DaytonPotassium [Moles/volume] in Serum or PlasmaOrdered By: Rick Ortega on 87-70-4830Uptmpkisp [Moles/Vol]5.1 mmol/L3.5-5.1FDayton Osteopathic HospitalProtein [Mass/volume] in Serum or PlasmaOrdered By: Rick Ortega on 37-23-5910Qtvcmah [Mass/Vol]6.3 g/dL6.4-8.9[facility] Serum or plasma anion gap determinationOrdered By: Rick Ortega on 04-12-2023 Anion gap [Moles/Vol]9.8 mmol/L6.0-15.0[facility] CenterActin smooth muscle IgG Ab [Units/volume] in SerumOrdered By: Lex Carroll on 62-77-0942Dmmmb smooth muscle IgG Qn (S)8 Units0-19[facility] Medical CenterComment on above:Negative 0 - 19 Weak positive 20 - 30 Moderate to strong positive >30 Actin Antibodies are foundin 52-85% of patients with autoimmune hepatitis or chronic active hepatitis and in 22% of patients with primary biliary cirrhosis.Alanine aminotransferase [Enzymatic activity/volume] in Serum or PlasmaOrdered By: Lex Carroll on 19-37-8322XTC [Catalytic activity/Vol]30 U/L7-52[facility] CenterAlbumin [Mass/volume] in Serum or Plasma by Bromocresol green (BCG) dye binding methoOrdered By: Lex Carroll on 10-71-0592Cbphvwk BCG dye [Mass/Vol]3.6 g/dL3.5-5.7FDayton Osteopathic HospitalAlkaline phosphatase [Enzymatic activity/volume] in Serum or PlasmaOrdered By: Lex Carroll on 1953KZL [Catalytic activity/Vol]96 U/L66-815YwdlhaxvyKettering Health Behavioral Medical CenterAspartate aminotransferase [Enzymatic activity/volume] in Serum or PlasmaOrdered By: Lex Carroll on 64-89-6907NFR [Catalytic activity/Vol]55 U/G67-57FnlwvdpixKettering Health Behavioral Medical CenterBasophils Auto (Bld) [#/Vol]Ordered By: Lex Carroll on 99-57-8947Fevvyjzgl (Bld) [#/Vol]0.0 10*3/uL 0.0-0.2FDayton Osteopathic HospitalBasophils/100 WBC Auto (Bld)Ordered By: Lex Carroll on 60-01-6527Jwxtccskb/100 WBC (Bld)0.9 %.[facility] CenterBilirubin.total [Mass/volume] in Serum or PlasmaOrdered By: Lex Carroll on 79-08-9979Pddqxvubr [Mass/Vol]0.9 mg/dL0.3-1.0[facility] CenterCalcium [Mass/volume] in Serum or PlasmaOrdered By: Lex Carroll on 36-31-9786Egqkybt [Mass/Vol]8.7 mg/dL8.6-10.3FDayton Osteopathic HospitalCarbon dioxide, total [Moles/volume] in Serum or PlasmaOrdered By: Lex Carroll on 79-93-9462LW4 [Moles/Vol]26.9 mmol/L21.0-31.0[facility] CenterChloride [Moles/volume] in Serum or PlasmaOrdered By: Lex Carroll on 29-28-5203Taynvbwm [Moles/Vol]108 mmol/N89-635FhxbmciusKettering Health Behavioral Medical CenterCholesterol [Mass/volume] in Serum or PlasmaOrdered By: Lex Carroll on 26-58-2646Pqooakxbjnc [Mass/Vol]175 mg/uA492-898CocdnriuiKettering Health Behavioral Medical CenterComment on above:Chol less than 200 mg/dl low riskChol 201-239 mg/dl borderline riskChol 240 mg/dl and greater high riskCholesterol in LDL Calc [Mass/Vol]Ordered By: Lex Carroll on 26-24-6698Knwbutdefkt in LDL [Mass/Vol]94 mg/dL0-100[facility] CenterComment on above:LDL ATP III CLASSIFICATIONLDL less than 100 mg/dL OptimalLDL 100-129 mg/dL Near or above xslytboUAO232-497 mg/dL Borderline highLDL 160-189 mg/dL HighLDL greater than 189 mg/dL Very highCholesterol in VLDL Calc [Mass/Vol]Ordered By: Lex Carroll on 39-89-1829Lswbzcagzoc in VLDL [Mass/Vol]21 mg/dLKettering Health Behavioral Medical CenterCreatinine [Mass/volume] in Serum or PlasmaOrdered By: Lex Carroll on 41-65-0699Egbijuediw [Mass/Vol]0.90 mg/dL0.70-1.30[facility] CenterEosinophils Auto (Bld) [#/Vol]Ordered By: Lex Carroll on 76-14-4277Hiyymnwfrch (Bld) [#/Vol]0.2 10*3/uL0.0-0.45[facility] Medical CenterEosinophils/100 WBC Auto (Bld)Ordered By: Lex Carroll on 09-21-2022 Eosinophils/100 WBC (Bld)3.6 %.[facility] Medical CenterErythrocyte distribution width Auto (RBC) [Ratio]Ordered By: Lex Carroll on 09-21-2022 Erythrocyte distribution width (RBC) [Ratio]14.2 %12.0-14.8[facility] Medical CenterGlobulin Calc (S) [Mass/Vol]Ordered By: Lex Carroll on 58-25-8403Kekcdgkg (S) [Mass/Vol]2.8 g/dLKettering Health Behavioral Medical Center Glucose [Mass/volume] in Serum or PlasmaOrdered By: Lex Carroll on 09-21-2022 Glucose [Mass/Vol]123 mg/dV41-215UxpqgaqzvKettering Health Behavioral Medical CenterComment on above:ADA recommended reference rangeRandom Glucose Reference Range is dependent on time and content of last meal. Glucose of more than 200 mg/dL in a nonstressed, ambulatory subject supports the diagnosisof Diabetes Mellitus. Hematocrit Auto (Bld) [Volume fraction]Ordered By: Lex Carroll on 09-21-2022 Hematocrit (Bld) [Volume fraction]37.5 %38.8-50.0[facility] CenterHemoglobin [Mass/volume] in BloodOrdered By: Lex Carroll on 09-21-2022 Hemoglobin (Bld) [Mass/Vol]12.9 g/dL13.0-17.0[facility] Hepatitis B virus surface Ag [Presence] in Serum or Plasma by ImmunoassayOrdered By: Lex Carroll on 56-23-0265USU surface Ag IA QlNegativeNegativeKettering Health Behavioral Medical CenterHepatitis C virus IgG Ab [Presence] in Serum or Plasma by ImmunoassayOrdered By: Lex Carroll on 90-84-6209KNT IgG IA QlNon-ReactiveNon ReactiveKettering Health Behavioral Medical CenterLaboratory - CoagulationOrdered By: Lex Carroll on 67-17-0513DQ Coag (PPP) [Time]13.0 s9.0-12.9[facility] CenterLeukocytes [#/volume] corrected for nucleated erythrocytes in Blood by Automated counOrdered By: Lex Carroll on 28-57-4527RYZ corrected for nucl RBC Auto (Bld) [#/Vol]4.2 10*3/uL4.1-10.5FDayton Osteopathic Hospital Lymphocytes Auto (Bld) [#/Vol]Ordered By: Lex Carroll on 67-79-6219Acgwbqzuydl (Bld) [#/Vol]1.1 10*3/uL1.00-4.8[facility] Lymphocytes/100 WBC Auto (Bld)Ordered By: Lex Carroll on 09-21-2022 Lymphocytes/100 WBC (Bld)27.1 %.[facility] Medical CenterMCH Auto (RBC) [Entitic mass]Ordered By: Lex Carroll on 84-54-1911ZLS (RBC) [Entitic mass] 35.0 pg27.5-35.2FDayton Osteopathic HospitalMCHC Auto (RBC) [Mass/Vol] Ordered By: Lex Carroll on 01-20-6449ULEZ (RBC) [Mass/Vol]34.4 g/dL32.5-35.6 [facility] CenterMCV Auto (RBC) [Entitic vol]Ordered By: Lex Carroll on 75-34-2503BMN (RBC) [Entitic vol]101.9 fL83.5-101[facility] CenterMonocytes Auto (Bld) [#/Vol]Ordered By: Lex Carroll on 61-02-5866Jssbkbzpf (Bld) [#/Vol]0.5 10*3/uL0.0-0.8[facility] CenterMonocytes/100 WBC Auto (Bld)Ordered By: Lex Carroll on 09-21-2022 Monocytes/100 WBC (Bld)11.3 %.[facility] Medical CenterNeutrophils Auto (Bld) [#/Vol]Ordered By: Lex Carroll on 56-03-9537Pjzduergmzm (Bld) [#/Vol]2.4 10*3/uL1.8-7.7FDayton Osteopathic HospitalNeutrophils/100 WBC Auto (Bld) Ordered By: Lex Carroll on 61-17-7265Dufvcqdbqdr/100 WBC (Bld)57.1 %.[facility] CenterNo Panel InformationOrdered By: Lex Carroll on 49-61-8509Lgvispyut GFR (CKD-EPI)> 60.0 mL/MinKettering Health Behavioral Medical Center Hepatitis B Core Total AntibodyNegativeNegativeK[facility] Comment on above:Performed at: - [facility] [id number] Director: John Tang PhD, Phone: [phone] Renteria comment.[facility] CenterComment on above:Not infected with HCV unless early or acute infection issuspected (which may be delayed in an immunocompromisedindividual), or other evidence exists to indicate HCVinfection.Hepatitis C RNA QuantitativeN/[facility] Creatinine Clearance (Chem88.23[facility] Nucleated erythrocytes [Presence] in Blood by Automated countOrdered By: Lex Carroll on 45-54-8475Cyoshbjhc RBC Auto Ql (Bld)0.2 /100{WBC}0-0.5FDayton Osteopathic HospitalPlatelet mean volume Auto (Bld) [Entitic vol]Ordered By: Lex Carroll on 71-54-7781Kiozzlvn mean volume (Bld) [Entitic vol]9.8 fL 6.6-10.1FDayton Osteopathic HospitalPlatelet poor plasma international normalized ratio (INR) by coagulation assay (relatOrdered By: Lex Carroll on 34-37-1040FDL Coag (PPP) [Relative time]1.1 {INR}[facility] CenterComment on above:INR Therapeutic Range A) Pre- and Peroperative OAT started two weeks before surgery. NOT HIP SURGERY: 1.5 - 2.5 HIP SURGERY: 2 - 3B) Primary and secondary prevention of venous THROMBOSIS: 2 - 3C) Active venous thrombosis, pulmonary embolismand prevention of recurrent venous thrombosis: 2 - 3D) Prevention of arterial thromboembolismincluding patients with mechanical heart valves: 3 - 4.5Platelets Auto (Bld) [#/Vol]Ordered By: Lex Carroll on 62-76-8761Vjpwwxsbx (Bld) [#/Vol]91 10*3/jH016-634AxprodpitKettering Health Behavioral Medical CenterPotassium [Moles/volume] in Serum or PlasmaOrdered By: Lex Carroll on 66-93-3221Nfblmmcgw [Moles/Vol]5.0 mmol/L3.5-5.1FDayton Osteopathic HospitalProtein [Mass/volume] in Serum or PlasmaOrdered By: Lex Carroll on 88-19-0372Mbnffjo [Mass/Vol]6.4 g/dL6.4-8.9[facility] Medical CenterRBC Auto (Bld) [#/Vol]Ordered By: Lex Carroll on 09-29-6760DIN (Bld) [#/Vol]3.68 10*6/uL3.90-5.60Grant Hospitalerum dqmpq-6-uzwriuhfrod measurementOrdered By: Lex Carroll on 31-79-2602Iirvi 1 antitrypsin [Mass/Vol] 205 mg/pH943-536QffqlkcctGrant Hospitalerum hepatitis B virus surface antibody detectionOrdered By: Lex Carroll on 45-39-0647EVY surface Ab Ql (S) Non-Reactive.[facility] CenterComment on above:Non Reactive: Inconsistent with immunity, less than 10 mIU/mL Reactive: Consistent with immunity, greater than 9.9 mIU/mLSerum mitochondria M2 IgG antibody assay (units/volume)Ordered By: Lex Carroll on 47-18-5091Clrdlmbbgyja M2 IgG Qn (S) <20.0 Units0.0-20.0[facility] CenterComment on above:Negative 0.0 - 20.0 Equivocal 20.1 - 24.9 Positive >24.9Mitochondrial (M2) Antibodies are found in 90-96% ofpatients with primary biliary cirrhosis.Performed at: [facility] [id number] Director: John Tang PhD, Phone: [phone] or plasma albumin/globulin mass ratio Ordered By: Lex Carroll on 86-92-6793Ucnppok/Globulin [Mass ratio]1.3 {ratio} Grant Hospitalerum or plasma alpha 1 antitrypsin phenotyping identification by immunofixationOrdered By: Lex Carroll on 83-09-7070Vqxrq 1 antitrypsin phenotyping Immunofixation NomMm.[facility] Comment on above:Phenotype Population A-1-AT Concentration* Incidence % % of [...] reference. Ranges used to confirm phenotype.Performed at: [address] [id number] Director: John Tang PhD, Phone: [phone] at: [id number] Director: George Brown MD, Phone: [phone] or plasma anion gap determinationOrdered By: Lex Carroll on 39-48-6421Acscj gap [Moles/Vol]11.1 mmol/L6.0-15.0Grant Hospitalerum or plasma ceruloplasmin measurement (mass/volume)Ordered By: Lex Carroll on 60-01-2200Ngxfxkgnkmtip [Mass/Vol]22.4 mg/dL16.0-31.0[facility] CenterComment on above:Performed at: [facility] [employer] [id number] Director: John Tang PhD, Phone: [phone] or plasma free cefuroxime measurement (mass/volume)Ordered By: Lex Carroll on 15-71-7315Ngqouqkduy free [Mass/Vol]NegativeNegativeKettering Health Behavioral Medical CenterComment on above:Performed at: [facility] [employer] [id number] Director: John Tang PhD, Phone: [phone] or plasma high density lipoprotein (HDL) cholesterol measurementOrdered By: Lex Carroll on 30-47-5686Uolhoklblap in HDL [Mass/Vol]60 mg/dU60-67WhwpltogmKettering Health Behavioral Medical CenterComment on above:HDL CHOL ATP-III CLASSIFICATION Cardiovascular RiskHDL > or equal to 60 mg/dL LOWHDL < 40 mg/dL HIGHSerum or plasma total cholesterol/high density lipoprotein (HDL) cholesterol mass rat Ordered By: Lex Carroll on 23-86-6736Emhnxvwxxue.total/Cholesterol in HDL [Mass ratio]2.9 {ratio}<5.0Grant Hospitalodium [Moles/volume] in Serum or PlasmaOrdered By: Lex Carroll on 47-87-5946Rupdqm [Moles/Vol]141 mmol/E833-182ZwgrkjzbtKettering Health Behavioral Medical CenterTriglyceride [Mass/volume] in Serum or PlasmaOrdered By: Lex Carroll on 09-21-2022 Triglyceride [Mass/Vol]107 mg/dL0-149[facility] CenterComment on above:TRIG ATP III CLASSIFICATIONTRIG less than 150 mg/dL NormalTRIG 150-199 mg/dL Borderline highTRIG 200-500 mg/dL High TRIG greater than 500 mg/dL Very highStandard traceable to the Center for Disease Conrtrol and Prevention (CDC) test method.Urea nitrogen [Mass/volume] in Serum or PlasmaOrdered By: Lex Carroll on 56-09-9680Iire nitrogen [Mass/Vol]9 mg/dL7-[facility] Medical CenterWBC Auto (Bld) [#/Vol]Ordered By: Lex Carroll on 06-31-5997SZH (Bld) [#/Vol]4.2 10*3/uL4.1-10.5FDayton Osteopathic Hospital Vital Signs Date TimeVital SignValuePerforming OuoesgnklMekjktmd88-01-4448 17:30-0400 Diastolic blood ohgimdsr30 mm[Hg]Jane Croreia MD Work Phone: [facility]07-30-2025 17:30-0400Heart rate74 /min Jane Correia MD Work Phone: [facility]07-30-2025 17:30-0400Respiratory rate 18 /minJane Correia MD Work Phone: [facility]07-30-2025 17:30-2490XoK7% (BldA) [Mass fraction]93 %Jane Correia MD Work Phone: [facility]07-30-2025 17:30-0400Systolic blood jvpjfymb572 mm[Hg]Jane Correia MD Work Phone: [facility]07-30-2025 15:30-0400Body temperature 97.2 [degF]Jane Correia MD Work Phone: [facility]07-30-2025 14:26-0400Body lwibnf721.3 cmJane Correia MD Work Phone: [facility]07-30-2025 14:26-0400Body mass index (BMI) [Ratio]22.15 kg/q5NjxehzcxgkuJane Correia MD Work Phone: [facility]07-30-2025 14:26-0400Body nmesgk53.04 kgJane Correia MD Work Phone: [facility]05-05-2025 11:11-0400Body zzseqv629.3 cmArashen Hemmer PA Work Phone: [facility] HospitalYyvbgkxkrw81-77-1473 11:11-0400Body mass index (BMI) [Ratio]28.5 kg/p1Slazs Hemmer PA Work Phone: 1([phone] [place], [place] [address]Ezmyxdqxnq97-27-0051 11:11-0400Body owwhwtjlewi65 [degF]Xuan Hemmer PA Work Phone: [phone] HospitalDgbvfcqkaj39-91-6912 11:11-0400Body winqjg89.54 kgKaren Hemmer PA Work Phone: [phone] HospitalUiajpkdwtx54-02-0580 11:11-0400Diastolic blood ueoqkpct84 mm[Hg]Xuan Hemmer PA Work Phone: [phone] HospitalUqdlhpjjnv89-17-8064 11:11-0400Heart rate82 /min Xuan Hemmer PA Work Phone: [facility] HospitalUigmoyzayf63-37-3168 11:11-0400Respiratory rate16 /minKaren Hemmer PA Work Phone: [phone] HospitalPtygenvmed15-96-9175 11:11-1445BcM8% (BldA) [Mass fraction]98 %Xuan Hemmer PA Work Phone: [facility] HospitalCgsnrvncfj25-86-1884 11:11-0400Systolic blood jhrtiutd207 mm[Hg]Xuan MALDONADO Work Phone: [facility] HospitalFvnzxofrey20-00-8092 12:47-0400Diastolic blood jyyqdqah57 mm[Hg]Sanjay Robledo II Work Phone: [facility]04-15-2025 12:47-0400 Heart rate90 /Gracy Robledo II Work Phone: 1([phone])736-[address] [place], [place] 1702804-15-2025 12:47-0400 Respiratory rate20 /Gracy Robledo II Work Phone: 1(450)771-[address] [place], [place] 1702804-15-2025 12:47-0400 SaO2% (BldA) [Mass fraction]97 %Sanjay Robledo II Work Phone: 1(536)707-[address] [place], [place] 1702804-15-2025 12:47-0400 Systolic blood iidyquks599 mm[Hg]Sanjay Robledo II Work Phone: 1(003)068-[address] [place], [place] 1702804-15-2025 10:24-0400 Body nzpofv815.26 cmDajackie Robledo II Work Phone: 1(358)087-[address] [place], [place] 1702804-15-2025 10:24-0400 Body ygnrge26.64 kgDajackie Robledo II Work Phone: 1(256)067-[address] [place], [place] 1702804-10-2025 13:38-0400 Body mass index (BMI) [Ratio]26.89 kg/y3IzhsjDerrick Harris MD Work Phone: [phone]04-10-2025 13:38-0400Body temperature 98.4 [degF]Derrick Harris MD Work Phone: [phone]04-10-2025 13:38-0400Body hptaho80.6 kgDerrick Harris MD Work Phone: [phone]04-10-2025 13:38-0400Diastolic blood bahjviwn82 mm[Hg]Derrick Harris MD Work Phone: [phone] HospitalComment on above:Copied from previous qhfs21-48-6649 13:38-0400Heart rate53 /minDerrick Harris MD Work Phone: [phone]04-10-2025 13:38-0400Respiratory rate 18 /minDerrick Harris MD Work Phone: [facility]04-10-2025 13:38-8150CfT6% (BldA) [Mass fraction]98 %Derrick Harris MD Work Phone: [phone]04-10-2025 13:38-0400Systolic blood mm[Hg]Derrick Harris MD Work Phone: [phone] HospitalComment on above:Copied from previous bsun90-46-3434 11:40-0400Body fnxzgy600.3 cmSjigar Garg MD Work Phone: [facility]04-10-2025 11:40-0400Body mass index (BMI) [Ratio]26.88 kg/s9CvsifkDmitri Garg MD Work Phone: [phone]04-10-2025 11:40-0400Body temperature 98.4 [degF]Dmitri Garg MD Work Phone: [phone]04-10-2025 11:40-0400Body bjhjau44.56 kgDmitri Garg MD Work Phone: [phone]04-10-2025 11:40-0400Diastolic blood olpoqvnn41 mm[Hg]Dmitri Garg MD Work Phone: [facility]04-10-2025 11:40-0400Heart rate53 /min Dmitri Garg MD Work Phone: [facility]04-10-2025 11:40-5172AvO3% (BldA) [Mass fraction]98 %Dmitri Garg MD Work Phone: [facility]04-10-2025 11:40-0400Systolic blood etwpzbec864 mm[Hg]Dmitri Garg MD Work Phone: [facility]03-21-2025 10:44-0400Body mass index (BMI) [Ratio]24.55 kg/a9JhdvjpMorales Gregg MD Work Phone: [facility]03-21-2025 10:44-0400Body oetirf69.4 kgMorales Gregg MD Work Phone: [facility]03-21-2025 10:40-0400Heart rate53 /min Morales Gregg MD Work Phone: [facility]03-21-2025 10:40-7942WzY7% (BldA) [Mass fraction]95 %Morales Gregg MD Work Phone: [facility]03-21-2025 10:30-0400Diastolic blood mm[Hg]Morales Gregg MD Work Phone: [facility]03-21-2025 10:30-0400Systolic blood nhxcxpqa31 mm[Hg]Morales Gregg MD Work Phone: [facility]03-21-2025 08:51-0400Body temperature 97.7 [degF]Morales Gregg MD Work Phone: [facility]03-21-2025 08:51-0400Respiratory rate 16 /minJojosh Gregg MD Work Phone: [facility]03-05-2025 14:34-0500Diastolic blood qgyvuvlk67 mm[Hg]Sanjay Robledo II Work Phone: [facility]03-05-2025 14:34-0500 Heart rate48 /minDgreg Robledo II Work Phone: [facility]03-05-2025 14:34-0500 Respiratory rate18 /minDgreg Robledo II Work Phone: [facility]03-05-2025 14:34-0500 SaO2% (BldA) [Mass fraction]94 %Sanjay Robledo II Work Phone: [facility]03-05-2025 14:34-0500 Systolic blood wdhaunfy70 mm[Hg]Sanjay Robledo II Work Phone: [facility]03-05-2025 12:13-0500 Body .26 cmDajackie Robledo II Work Phone: [facility]03-05-2025 12:13-0500 Body ojdzxl93.37 kgDajackie Robledo II Work Phone: [facility]02-14-2025 10:00-0500 Body mass index (BMI) [Ratio]24.35 kg/i4Kznjvvovlb [address]02-14-2025 10:00-0500Body ythrmv63.8 kgAdena Fayette Medical Centerlogy [address]02-14-2025 10:00-0500 Diastolic blood fqejjfwn29 mm[Hg]Hepatology [address]02-14-2025 10:00-0500Heart rate51 /minAdena [facility]ayette Medical Centerlogy [address]02-14-2025 10:00-0500 SaO2% (BldA) [Mass fraction]99 %Hepatology [address]02-14-2025 10:00-0500Systolic blood ytukpqyl73 mm[Hg]Hepatology [address] 05-31-2024 08:43-0500Body paiobv388.3 cmNorthwest [facility] Centertology [address]02-14-2025 08:43-0500Body kpfyvhexsew61.5 [degF]Hepatology [address]02-14-2025 08:43-0500Respiratory rate16 /minHegatology [address]02-13-2025 16:04-0500Diastolic blood mm[Hg]Raymond Penaloza MD Work Phone: [facility]02-13-2025 16:04-0500Heart rate52 /min Raymond Penaloza MD Work Phone: [facility]02-13-2025 16:04-0500Respiratory rate 16 /minRaymond Penaloza MD Work Phone: [facility]02-13-2025 16:04-2094SjM6% (BldA) [Mass fraction]96 %Raymond Penaloza MD Work Phone: [facility]02-13-2025 16:04-0500Systolic blood mm[Hg]Raymond Penaloza MD Work Phone: [facility]02-13-2025 15:14-0500Body temperature 96.8 [degF]Raymond Penaloza MD Work Phone: [facility]02-06-2025 11:01-0500Body mass index (BMI) [Ratio]24.93 kg/z2GxtjokgkiBrisa Bull MD Work Phone: [facility]02-06-2025 11:01-0500Body temperature 97.11 [degF]Brisa Bull MD Work Phone: [facility]02-06-2025 11:01-0500Body yzzyzz65.7 kgBrisa Bull MD Work Phone: [phone]02-06-2025 11:01-0500Diastolic blood decmvduz07 mm[Hg]Brisa Bull MD Work Phone: [phone]02-06-2025 11:01-0500Heart rate60 /min Brisa Bull MD Work Phone: [facility]02-06-2025 11:01-0500Respiratory rate 16 /minBrisa Bull MD Work Phone: [phone]02-06-2025 11:01-6392SiA1% (BldA) [Mass fraction]100 %Brisa Bull MD Work Phone: [phone]02-06-2025 11:01-0500Systolic blood jhgssnko570 mm[Hg]Brisa Bull MD Work Phone: [phone]02-06-2025 10:41-0500Body mass index (BMI) [Ratio]24.93 kg/m2Pulm 8CGe[facility] HospitalGfwsqn49-02-8604 10:41-0500Body weight 77.7 kgPulm 8CGe[facility] Behavioral HospitalGrcdht34-09-4158 14:46-0500Diastolic blood pkxyyzgs07 mm[Hg]Brisa Seals MD Work Phone: [phone] Behavioral HospitalHenzuf72-64-6310 14:46-0500Heart rate60 /min Brisa Seals MD Work Phone: [phone] Behavioral HospitalSjqpql57-26-0125 14:46-0500Respiratory rate 17 /minBrisa Seals MD Work Phone: GGe[facility] Behavioral HospitalGvledh40-46-5379 14:46-5872AlP6% (BldA) [Mass fraction]97 %Brisa Seals MD Work Phone: [phone] Behavioral HospitalOkgpvc23-22-0312 14:46-0500Systolic blood mfxjhyhu449 mm[Hg]Brisa Seals MD Work Phone: [phone] Behavioral HospitalZjntwc26-55-9484 12:29-0500Diastolic blood kiycxnls60 mm[Hg]Jade Arora MD Work Phone: [place] [address]-16-2025 12:29-0500Systolic blood firccrta464 mm[Hg]Jade Arora MD Work Phone: [phone] [address]-16-2025 12:28-0500Body asnefb751.5 cmJade Arora MD Work Phone: [phone] [address]-16-2025 12:28-0500Body mass index (BMI) [Ratio]25.62 kg/l2VroehaJade Arora MD Work Phone: [place] [address]-16-2025 12:28-0500Body gtputb26.83 kgJade Arora MD Work Phone: [phone] [address]-16-2025 12:28-0500Heart rate52 /min Jade Arora MD Work Phone: [place] [address]-16-2025 12:28-4442SbW4% (BldA) [Mass fraction]97 %Jade Arora MD Work Phone: [facility]01-15-2025 12:00-0500Diastolic blood uiauxyil33 mm[Hg]Hepatology [address]01-15-2025 12:00-0500Heart rate50 /minHepatology [address]01-15-2025 12:00-0500Respiratory rate18 /min Hepatology [address]01-15-2025 12:00-9148PcA6% (BldA) [Mass fraction] 100 %Hepatology [address]01-15-2025 12:00-0500Systolic blood pressure 119 mm[Hg]Hepatology [address]01-15-2025 11:50-0500Body mass index (BMI) [Ratio]24.81 kg/l3Ftehnzkfzk [address]01-15-2025 11:50-0500Body .2 kgHewills eye hospitaly [address] StreetComment on above:post para weight 05-01-2024 10:22-0500Body .3 cmHepatology [address]01-15-2025 10:22-0500Body rxtpopwxkgl06.3 [degF]Hepatology [address]01-15-2025 07:50-0500Body .[facility] Work Phone: [phone]01-15-2025 07:50-0500Body mass index (BMI) [Ratio]26.06 kg/b4Wvnflwdkia Clinic Work Phone: [phone]01-15-2025 07:50-0500Body temperature 97.59 [degF][facility] Work Phone: [phone]01-15-2025 07:50-0500Body .19 kg[facility] Work Phone: [phone]01-15-2025 07:50-0500Diastolic blood kffgurjf02 mm[Hg][facility] Work Phone: [phone]01-15-2025 07:50-0500Heart rate56 /min [facility] Work Phone: [facility]01-15-2025 07:50-0500Respiratory rate 16 /min[facility] Work Phone: [phone]01-15-2025 07:50-9692GiG6% (BldA) [Mass fraction]97 %[facility] Work Phone: [phone]01-15-2025 07:50-0500Systolic blood bscaglya309 mm[Hg][facility] Work Phone: [phone]01-14-2025 12:49-0500Body utbqpg805.5 Jhonny Weir MD Work Phone: [phone]01-14-2025 12:49-0500Body mass index (BMI) [Ratio]26.06 kg/h8VuqydHal Weir MD Work Phone: [phone]01-14-2025 12:49-0500Body temperature 97.2 [degF]Hal Weir MD Work Phone: [phone]01-14-2025 12:49-0500Body ovwcui18.19 kgHal Weir MD Work Phone: [phone]01-14-2025 12:49-0500Diastolic blood fakkattc25 mm[Hg]Hal Weir MD Work Phone: [phone]01-14-2025 12:49-0500Heart rate53 /min Hal Weir MD Work Phone: [phone]01-14-2025 12:49-0500Respiratory rate 12 /minHal Weir MD Work Phone: [phone]01-14-2025 12:49-6442BeP9% (BldA) [Mass fraction]98 %Hal Weir MD Work Phone: [phone]01-14-2025 12:49-0500Systolic blood gytsxbss100 mm[Hg]Hal Weir MD Work Phone: [phone]01-13-2025 14:41-0500Body xogilz036.5 Kyle Garg MD Work Phone: [facility]01-13-2025 14:41-0500Body mass index (BMI) [Ratio]26.06 kg/m9NfdisxDmitri Garg MD Work Phone: [phone]01-13-2025 14:41-0500Body temperature 96.8 [degF]Dmitri Garg MD Work Phone: [phone]01-13-2025 14:41-0500Body kaajzi58.19 kgDmitri Garg MD Work Phone: [phone]01-13-2025 14:41-0500Diastolic blood fwfwfcko47 mm[Hg]Dmitri Garg MD Work Phone: [phone]01-13-2025 14:41-0500Heart rate50 /min Dmitri Garg MD Work Phone: [phone]01-13-2025 14:41-0500Respiratory rate 12 /minSjigar Garg MD Work Phone: [phone]01-13-2025 14:41-8210TeQ7% (BldA) [Mass fraction]96 %Dmitri Garg MD Work Phone: [facility]01-13-2025 14:41-0500Systolic blood diovmyjf930 mm[Hg]Dmitri Garg MD Work Phone: [phone]01-13-2025 10:58-0500Body ulxcxk955.[address] Work Phone: [facility]01-13-2025 10:58-0500Body mass index (BMI) [Ratio]26.1 kg/s5Bsizmea Crtalic-Sandy RD Work Phone: [facility]01-13-2025 10:58-0500Body eblfgh56.[address]-Sandy RD Work Phone: [facility]08-28-2024 13:44-0400Body buuxsk086.3 cmArashen Hemmer PA Work Phone: 1(101)[facility] [place], [place] [address]Iibwarpozp32-37-7549 13:44-0400Body mass index (BMI) [Ratio]27.67 kg/h7Ivpbo Hemmer PA Work Phone: 1(516)[address] [place], [place] 5023608-28-2024 13:44-0400Body osustd26 kg Xuan Hemmer PA Work Phone: 1(745)[address] [place], [place] 5023608-28-2024 13:44-0400Diastolic blood sksyqfqy37 mm[Hg]Xuan Hemmer PA Work Phone: 1(144)[address] [place], [place] 5023608-28-2024 13:44-0400Heart rate84 /min Xuan Hemmer PA Work Phone: 1([phone] [place], [place] 5023608-28-2024 13:44-0400Respiratory rate18 /minArashen Hemmer PA Work Phone: 1(954)[address] [place], [place] 5023608-28-2024 13:44-0600MnE2% (BldA) [Mass fraction]97 %Xuan Hemmer PA Work Phone: 1(992)[address] [place], [place] 5023608-28-2024 13:44-0400Systolic blood dbqywtwj989 mm[Hg]Xuan Hemmer PA Work Phone: 1(190)[address] [place], [place] 5023603-20-2024 08:58-0400Body .85 kgII Sanjay Robledo Work Phone: [phone]03-20-2024 08:58-0400 Diastolic blood usrpoqhg55 mm[Hg]II Sanajy Robledo Work Phone: [phone]03-20-2024 08:58-0400 Heart rate88 /minII Sanjay Robledo Work Phone: 1(965)[address] [place], [place] 3180403-20-2024 08:58-0400 Systolic blood ekxxxqfo901 mm[Hg]II Sanjay Robledo Work Phone: [phone]02-27-2024 17:15-0500 Diastolic blood ytytzrvh87 mm[Hg]II Sanjay Robledo Work Phone: 1(732)253-[address] [place], [place] 1702802-27-2024 17:15-0500 Heart rate72 /minII Sanjay Robledo Work Phone: 1(973)448-[address] [place], [place] 1702802-27-2024 17:15-0500 Respiratory rate20 /minII Sanjay Robledo Work Phone: 1([phone])302-[address] [place], [place] 1702802-27-2024 17:15-0500 SaO2% (BldA) [Mass fraction]94 %II Sanjay Robledo Work Phone: 1(260)887-[address] [place], [place] 1702802-27-2024 17:15-0500 Systolic blood fsxjoyag994 mm[Hg]II Sanjay Robledo Work Phone: [phone]02-27-2024 13:38-0500 Body pkyjmy139.26 cmII Sanjay Robledo Work Phone: 1(125)269-[address] [place], [place] 1702802-27-2024 13:38-0500 Body mass index (BMI) [Ratio]31.1 kg/m2II Sanjay Robledo Work Phone: 1(615)320-[address] [place], [place] 1702802-27-2024 13:38-0500 Body hsbqwi95.7 kgII Sanjay Robledo Work Phone: [phone]02-27-2024 12:05-0500 Body bipqvgqeazz09.2 [degF]II Sanjay Robledo Work Phone: 1(690)663-[address] [place], [place] 1702802-14-2024 15:07-0500 Body dziojq821.3 cmFredric Itzkowitz DO Work Phone: [facility] HospitalIhdycvcxem92-36-8718 15:07-0500Body mass index (BMI) [Ratio]32.05 kg/n7Mpyxyuw Itzkowitz DO Work Phone: [facility] HospitalAehrofbbch47-47-8569 15:07-0500Body ikvypo31.43 kgFredric Itzkowitz DO Work Phone: [facility] HospitalGnwslmfowu45-76-2620 15:07-0500Diastolic blood pikjvguz59 mm[Hg]Brayan Itzkowitz DO Work Phone: [facility] HospitalGheluaarxk74-11-9677 15:07-0500Systolic blood vzgjyoew968 mm[Hg]Brayan Itzkowitz DO Work Phone: [facility] HospitalErtmltjofp04-68-4563 06:44-0500Body uvmdtv875.26 cmII Sanjay Robledo Work Phone: [facility]02-06-2024 06:44-0500 Body zmxxma75.79 kgII Sanjay Robledo Work Phone: [facility]02-01-2024 14:04-0500 Body imtwaz586.3 cmFredric Itzkowitz DO Work Phone: [facility] HospitalBsygbwvxef24-80-4306 14:04-0500Body mass index (BMI) [Ratio]32.78 kg/n3Rbnbbks Itzkowitz DO Work Phone: 1(784)[facility] [place], [place] [address]Xsigqknnen64-97-3503 14:04-0500Body ocuqug458.7 kgFredric Itzkowitz DO Work Phone: 7(165)[facility]-8499[facility] HospitalVapnxycbdp74-23-7081 14:04-0500Diastolic blood iumajlfl23 mm[Hg]Brayan Itzkowitz DO Work Phone: [facility] HospitalDqrpvbcfem94-89-7584 14:04-0500Systolic blood bhepvrcy755 mm[Hg]Brayan Itzkowitz DO Work Phone: 1(200)[address] [place], [place] 5515012-27-2023 11:00-0500Body ydruvn510.26 cmRyan Scovanner Other [facility]12-27-2023 11:00-0500 Body mass index (BMI) [Ratio]33.22 kg/m2Ryan Scovanner Other [employer] Other 12-27-2023 11:00-0500Body srxxqo686.06 kgRyan Scovanner Other [employer] Other 12-27-2023 11:00-0500Body arqogz522.05 kgII Sanjay Robledo Work Phone: [facility]12-27-2023 11:00-0500 Diastolic blood ymkdjdta97 mm[Hg]Rick Scovanner Other [facility]12-27-2023 11:00-0500 Systolic blood mm[Hg]Rick Scovanthuy Other [facility]07-27-2023 11:00-0400 Body bezzjt48.79 kgRyyoli Scovanner Other [employer] Other 07-27-2023 11:00-0400Diastolic blood byzoldee78 mm[Hg] Rick Scnaya Other [employer] Other 07-27-2023 11:00-0400Systolic blood xackacrt710 mm[Hg] Rick Scnaya Other [employer] Other 06-07-2023 08:49-0400Diastolic blood nrgajjfl76 mm[Hg] II Sanjay Robledo Work Phone: [facility]06-07-2023 08:49-0400 Heart rate50 /minII Sanjay Robledo Work Phone: [facility]06-07-2023 08:49-0400 SaO2% (BldA) [Mass fraction]99 %II Sanjay Robledo Work Phone: [facility]06-07-2023 08:49-0400 Systolic blood gyjctcae857 mm[Hg]II Sanjay Robledo Work Phone: [facility]06-07-2023 07:36-0400 Body .26 cmII Sanjay Robledo Work Phone: [facility]06-07-2023 07:36-0400 Body xcihiddqfxl02.5 [degF]II Sanjay Robledo Work Phone: [facility]06-07-2023 07:36-0400 Body wnqzat72.25 kgII Sanjay Robledo Work Phone: [facility]06-07-2023 07:36-0400 Respiratory rate16 /minII Sanjay Robledo Work Phone: [facility] Encounters Encounter DateEncounter TypeCare ProviderFacilityStart: 02-18-2025 End: 63-23-3609gvimsufiwjKRDLDZ B BERRY IIFacility:[facility] Start: 02-10-2025 End: 65-13-9437hejwkbukgmUCWYCU Patricia ROBLEDO IIFacility:[facility] Start: 01-28-2025 End: 15-65-4135cfdcgbkujwFBLBNK Patricia ROBLEDO IIFacility:[facility] Start: 57-33-2499hxgcifmduiZRIRWB B VENKAT IIFacility:[facility]art: 01-24-2025 End: 13-57-3569Vxhtvwiem Result EncounterGeneric External Data ProviderNOMS External Department UnsolicitedStart: 01-24-2025 End: 65-66-7891Lnqjrzino Result EncounterGeneric External Data ProviderNOMS External Department UnsolicitedStart: 01-20-2025 End: 90-33-3882Hgsfkreed Result EncounterGeneric External Data ProviderNOMS External Department UnsolicitedStart: 01-20-2025 End: 42-07-4400Scmkuuopn Result EncounterGeneric External Data ProviderNOMS External Department UnsolicitedStart: 01-16-2025 End: 68-28-5497Qnctqppgw Result EncounterGeneric External Data ProviderNOMS External Department UnsolicitedStart: 01-16-2025 End: 88-34-4018Rpvwfodhp Result EncounterGeneric External Data ProviderNOMS External Department UnsolicitedStart: 01-15-2025 End: 73-09-2869Ojyqajseo Result EncounterGeneric External Data ProviderNOMS External Department UnsolicitedStart: 01-15-2025 End: 63-49-2617Vtleghsio Result EncounterGeneric External Data ProviderNOMS External Department UnsolicitedStart: 01-14-2025 End: 21-32-5415rjbeleqkpeHWBQI GHAFFARIFacility:[facility]art: 01-08-2025 End: 47-42-6374Teryemjvz Result EncounterGeneric External Data ProviderNOMS External Department UnsolicitedStart: 01-08-2025 End: 22-29-2564Pdpjquqmu Result EncounterGeneric External Data ProviderNOMS External Department UnsolicitedStart: 01-06-2025 End: 41-46-3443Jrfqbenjg Result EncounterGeneric External Data ProviderNOMS External Department UnsolicitedStart: 01-06-2025 End: 72-21-2044Rphwveqwq Result EncounterGeneric External Data ProviderNOMS External Department UnsolicitedStart: 01-02-2025 End: 11-32-0450Ajzzjtvsv Result EncounterGeneric External Data ProviderNOMS External Department UnsolicitedStart: 01-02-2025 End: 25-87-2981Stwcpjuze Result EncounterGeneric External Data ProviderNOMS External Department UnsolicitedStart: 12-25-2024 End: 88-17-3763Xrdljubhz Result EncounterGeneric External Data ProviderNOMS External Department UnsolicitedStart: 12-25-2024 End: 18-77-3731Zacshrted Result EncounterGeneric External Data ProviderNOMS External Department UnsolicitedStart: 12-23-2024 End: 50-22-7913Souzglrvk Result EncounterGeneric External Data ProviderNOMS External Department UnsolicitedStart: 12-23-2024 End: 51-91-6596Kxzopzzoy Result EncounterGeneric External Data ProviderNOMS External Department UnsolicitedStart: 12-20-2024 End: 66-13-7389Jdivrbxaf Result EncounterGeneric External Data ProviderNOMS External Department UnsolicitedStart: 12-20-2024 End: 75-25-8192Tsyqyzsfp Result EncounterGeneric External Data ProviderNOMS External Department UnsolicitedStart: 12-19-2024 End: 89-42-8991Krdwxiccy Result EncounterGeneric External Data ProviderNOMS External Department UnsolicitedStart: 12-19-2024 End: 38-77-3919Tsfgejuns Result EncounterGeneric External Data ProviderNOMS External Department UnsolicitedStart: 12-17-2024 End: 82-44-4736Xhsoutcmw Result EncounterGeneric External Data ProviderNOMS External Department UnsolicitedStart: 12-17-2024 End: 80-59-8346Qgwkwoefu Result EncounterGeneric External Data ProviderNOMS External Department UnsolicitedStart: 12-16-2024 End: 10-17-3666Ehlosccnp Result EncounterGeneric External Data ProviderNOMS External Department UnsolicitedStart: 12-16-2024 End: 79-70-5105Evrkdylui Result EncounterGeneric External Data ProviderNOMS External Department UnsolicitedStart: 12-14-2024 End: 29-27-1062Hgpuovrgl Result EncounterGeneric External Data ProviderNOMS External Department UnsolicitedStart: 12-14-2024 End: 88-50-6902Hneetfefx Result EncounterGeneric External Data ProviderNOMS External Department UnsolicitedStart: 12-11-2024 End: 46-20-7528Sawnznlpz Result EncounterGeneric External Data ProviderNOMS External Department UnsolicitedStart: 12-11-2024 End: 21-90-6871Fceyfyirb Result EncounterGeneric External Data ProviderNOMS External Department UnsolicitedStart: 12-10-2024 End: 95-09-5795Jgfcfxsvx Result EncounterGeneric External Data ProviderNOMS External Department UnsolicitedStart: 12-10-2024 End: 32-64-2236Zcwkilpeq Result EncounterGeneric External Data ProviderNOMS External Department UnsolicitedStart: 12-05-2024 End: 46-68-8765Hprxblnru Result EncounterGeneric External Data ProviderNOMS External Department UnsolicitedStart: 12-05-2024 End: 22-23-0593Rkaesmxwv Result EncounterGeneric External Data ProviderNOMS External Department UnsolicitedStart: 11-25-2024 End: 79-30-3422Iewfgfwhk Result EncounterGeneric External Data ProviderNOMS External Department UnsolicitedStart: 11-25-2024 End: 87-60-3410Ndcbmxuwb Result EncounterGeneric External Data ProviderNOMS External Department UnsolicitedStart: 11-22-2024 End: 06-26-0765Evfhkaldx Result EncounterGeneric External Data ProviderNOMS External Department UnsolicitedStart: 11-22-2024 End: 18-74-2567Qawpapzja Result EncounterGeneric External Data ProviderNOMS External Department UnsolicitedStart: 11-22-2024 End: 39-83-6378Rikzbpyrvz and management of inpatientDANIEL B ROBLEDO II [facility]-21[facility]2024 End: 94-27-6569Tjbsdxnnd Result EncounterGeneric External Data ProviderNOMS External Department UnsolicitedStart: 11-21-2024 End: 16-42-6153Jmrziuonz Result EncounterGeneric External Data ProviderNOMS External Department UnsolicitedStart: 11-19-2024 End: 87-33-6256xoriihnhjfOfawfyc D KatkoFirOhio[facility] Work Phone: Start: 11-19-2024 End: 34-32-8655Ebppqsup ReferredAlbin Mitchell DO-LAB Path [facility] Start: 11-19-2024 End: 55-07-0415Pbwfzxekw Result EncounterGeneric External Data ProviderNOMS External Department UnsolicitedStart: 11-19-2024 End: 25-93-8922Bkyhbnnge Result EncounterGeneric External Data ProviderNOMS External Department UnsolicitedStart: 11-19-2024 End: 03-03-3644Almgzxhgl encounterLiver Txp Coordinator Work Phone: Transplant CenterComment on above:Update (OSH admit) Start: 11-18-2024 End: 57-08-8093Rgeavcnnj encounterLiver Txp Coordinator Work Phone: Transplant CenterComment on above:Return Call Request f/u dc phone callStart: 11-15-2024 End: 41-85-0594ewlrhqgnyfHhcrbnp Singam MD Work Phone: Infectious DiseaseComment on above:CoPat StopStart: 11-15-2024 End: 84-76-3580Dbqtyviox Result EncounterGeneric External Data ProviderNOMS External Department UnsolicitedStart: 11-15-2024 End: 99-81-5523Owyvrynue Result EncounterGeneric External Data ProviderNOMS External Department UnsolicitedStart: 11-14-2024 End: 57-82-6696Hralzr outpatient visit 25 minutesJennie Nicholson MD Work Phone: Infectious DiseaseComment on above:VRE infection (vancomycin resistant Enterococcus) (Primary Dx)Start: 11-14-2024 End: 54-72-0168vpwwibtbwgPOEJOA B BERRY IIFacility:[facility] Start: 11-14-2024 End: 79-79-7398Zdbisxzaa Result EncounterGeneric External Data ProviderNOMS External Department UnsolicitedStart: 11-14-2024 End: 26-22-4683Wxjioupez Result EncounterGeneric External Data ProviderNOMS External Department UnsolicitedStart: 11-13-2024 End: 83-13-2606Twrrgotgp Result EncounterGeneric External Data ProviderNOMS External Department UnsolicitedStart: 11-13-2024 End: 12-29-4149Tyxjlvrbu Result EncounterGeneric External Data ProviderNOMS External Department UnsolicitedStart: 11-13-2024 End: 14-01-6049Ryovxe OnlyJane Correia MD Work Phone: GastroenterologyComment on above: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, 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] Start: 11-12-2024 End: 90-55-1510LgconhYkji L Nikolic RNTransplant CenterStart: 11-11-2024 End: 94-86-3997Onxdhdeou Result EncounterGeneric External Data ProviderNOMS External Department UnsolicitedStart: 11-11-2024 End: 69-71-7950Vbwudejfz Result EncounterGeneric External Data ProviderNOMS External Department UnsolicitedStart: 11-11-2024 End: 07-26-0665Euzcnqmof Araceli Fatima RNGastroenterologyComment on above:Pad Making Machine Operator - OtherStart: 11-08-2024 End: 43-20-6311Etkrzamzf Result EncounterGeneric External Data ProviderNOMS External Department UnsolicitedStart: 11-08-2024 End: 37-77-5529Csgtqldfp Result EncounterGeneric External Data ProviderNOMS External Department UnsolicitedStart: 11-07-2024 End: 51-94-9336gqmatztxmlNadui Yun Kim RPhInfectious DiseaseComment on above: CoPat Management (Lab review)Start: 11-07-2024 End: 11-20-1274Tobbrxsdq Result EncounterGeneric External Data ProviderNOMS External Department UnsolicitedStart: 11-07-2024 End: 02-87-1886Arontlkxj Result EncounterGeneric External Data ProviderNOMS External Department UnsolicitedStart: 11-06-2024 End: 12-79-7440gkkiyafmfqWozi L Nikolic RNTransplant CenterStart: 11-06-2024 End: 38-63-7286Cydkdzb encounter procedureCarina Ziegler RNTransplant Center Comment on above:Appt 7-30Start: 11-05-2024 End: 05-68-8182Isnlfb OnlyCarina Ziegler RNTransplant CenterStart: 11-04-2024 End: 90-71-7944Bcevbncrd Result EncounterGeneric External Data ProviderNOMS External Department UnsolicitedStart: 11-04-2024 End: 83-36-2900Wlkzgzthr Result EncounterGeneric External Data ProviderNOMS External Department UnsolicitedStart: 11-02-2024 End: 12-73-9560Pkjcttndp Result EncounterGeneric External Data ProviderNOMS External Department UnsolicitedStart: 11-02-2024 End: 47-62-7611Uthvuulxr Result EncounterGeneric External Data ProviderNOMS External Department UnsolicitedStart: 11-01-2024 End: 25-94-4012Stnhmdlht Result EncounterGeneric External Data ProviderNOMS External Department UnsolicitedStart: 11-01-2024 End: 92-45-0522Nppfkemna Result EncounterGeneric External Data ProviderNOMS External Department UnsolicitedStart: 10-31-2024 End: 97-75-4237dpbymdbwbnUvpbs Yun Kim RPhInfectious DiseaseStart: 10-31-2024 End: 63-84-7486Eutvizsfw Result EncounterGeneric External Data ProviderNOMS External Department UnsolicitedStart: 10-31-2024 End: 58-27-8135Jithnbivo Result EncounterGeneric External Data ProviderNOMS External Department UnsolicitedStart: 10-31-2024 End: 82-51-2422Feclhm-up encounterTrakymberly Dhillon RNTransplant CenterStart: 10-31-2024 End: 18-32-8722Ydfoboi encounter procedureChkatharine Maldonado RPhInfectious Disease Comment on above: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; CoPat AgencyStart: 10-30-2024 End: 95-64-5242txsmxstqhxYPLDZ GHAFFARIFacility:[facility]art: 10-30-2024 End: 96-44-8358Vzjznmihdb hospital visit by Naila Cruz DO Work Phone: [facility]Start: 10-30-2024 End: 40-56-2540Qmtwotjoj Result EncounterGeneric External Data ProviderNOMS External Department UnsolicitedStart: 10-30-2024 End: 59-10-4788Wismmyjhs Result EncounterGeneric External Data ProviderNOMS External Department UnsolicitedStart: 10-23-2024 End: 43-74-1910xulimhkpzxMxlbsnb Singam MD Work Phone: [facility] HOSPComment on above:CoPat StartStart: 10-17-2024 End: 09-14-5595Dujxkykkq Result EncounterGeneric External Data ProviderNOMS External Department UnsolicitedStart: 10-17-2024 End: 94-51-6804Zpurbhxme Result EncounterGeneric External Data ProviderNOMS External Department UnsolicitedStart: 10-14-2024 End: 66-74-2912Tgozkeeto Result EncounterGeneric External Data ProviderNOMS External Department UnsolicitedStart: 10-14-2024 End: 13-04-1911Gkttqcfds Result EncounterGeneric External Data ProviderNOMS External Department UnsolicitedStart: 10-12-2024 End: 26-35-6314Neloiwaoz Result EncounterGeneric External Data ProviderNOMS External Department UnsolicitedStart: 10-12-2024 End: 52-18-9854Oixpzxlrz Result EncounterGeneric External Data ProviderNOMS External Department UnsolicitedStart: 10-11-2024 End: 92-76-8122Umuajn-up encounterCarina Ziegler RNTransplant CenterStart: 10-08-2024 End: 90-17-0777Jryaghvhz Result EncounterGeneric External Data ProviderNOMS External Department UnsolicitedStart: 10-08-2024 End: 67-22-0483Bfswfqeee Result EncounterGeneric External Data ProviderNOMS External Department UnsolicitedStart: 10-07-2024 End: 73-44-2113Feevtjxeio and management of inpatientDANIEL B ROBLEDO II [facility]: 10-07-2024 End: 10-26-4286twskjfavowSsgtxqzJanay Ryan APRN.CNP Work Phone: Transplant CenterStart: 10-07-2024 End: 01-78-8858Igvqywpbk Result EncounterGeneric External Data ProviderNOMS External Department UnsolicitedStart: 10-07-2024 End: 44-99-9644Uuwjgamdb Result EncounterGeneric External Data ProviderNOMS External Department UnsolicitedStart: 10-07-2024 End: 17-40-3957Jtynlmgpik hospital visit by physicianCt [facility] ([facility] Work Phone: [facility] Radiology CT ScanStart: 10-05-2024 End: 88-70-7290Lxeinttil Result EncounterGeneric External Data ProviderNOMS External Department UnsolicitedStart: 10-05-2024 End: 11-75-9545Iskqeizbg Result EncounterGeneric External Data ProviderNOMS External Department UnsolicitedStart: 10-04-2024 End: 66-84-2328Aduhprgsg Result EncounterGeneric External Data ProviderNOMS External Department UnsolicitedStart: 10-04-2024 End: 77-99-8050Xrtwisnhy Result EncounterGeneric External Data ProviderNOMS External Department UnsolicitedStart: 10-03-2024 End: 68-70-3406Uvcwqguvy Result EncounterGeneric External Data ProviderNOMS External Department UnsolicitedStart: 10-03-2024 End: 44-26-8669Rknnctjqe Result EncounterGeneric External Data ProviderNOMS External Department UnsolicitedStart: 10-03-2024 End: 91-60-1259Ckuotbidm encounterLiver Txp Coordinator Work Phone: Transplant CenterComment on above:Return Call Request Start: 10-02-2024 End: 88-13-5359ffxdjnaablMweco Hyuck David Kwon MD Work Phone: Transplant CenterComment on above:SuturesStart: 10-02-2024 End: 06-33-8186Ahfjpryav Result EncounterGeneric External Data ProviderNOMS External Department UnsolicitedStart: 10-02-2024 End: 56-68-2825Svaacyyde Result EncounterGeneric External Data ProviderNOMS External Department UnsolicitedStart: 10-01-2024 End: 40-00-8749Qmcss Antoine Ryan APRN.CNP Work Phone: Transplant CenterComment on above:Liver Pathology Review; HCC Silvana ScoreStart: 10-01-2024 End: 77-48-6936Elrxppvdo Result EncounterGeneric External Data ProviderNOMS External Department UnsolicitedStart: 10-01-2024 End: 70-83-6501Ttikqfify Result EncounterGeneric External Data ProviderNOMS External Department UnsolicitedStart: 10-01-2024 End: 76-56-5708Fiktlq-up encounterCarina Ziegler RNTransplant CenterStart: 09-30-2024 End: 75-64-9325Posnlgmjh Result EncounterGeneric External Data ProviderNOMS External Department UnsolicitedStart: 09-30-2024 End: 77-22-7550Wasguobvd Result EncounterGeneric External Data ProviderNOMS External Department UnsolicitedStart: 09-29-2024 End: 92-22-3558ximuutsaipWTDTQ GHAFFARIFacility:[facility]art: 09-29-2024 End: 03-70-5365Utwtmhzzcg hospital visit by Naila Cruz DO Work Phone: [facility]Start: 09-29-2024 End: 36-65-3224Blvnxswzy Result EncounterGeneric External Data ProviderNOMS External Department UnsolicitedStart: 09-29-2024 End: 54-72-3211Iyyoozunv Result EncounterGeneric External Data ProviderNOMS External Department UnsolicitedStart: 09-28-2024 End: 53-81-1213Jhgnsbshh Result EncounterGeneric External Data ProviderNOMS External Department UnsolicitedStart: 09-28-2024 End: 54-98-6474Mxephqipx Result EncounterGeneric External Data ProviderNOMS External Department UnsolicitedStart: 09-24-2024 End: 40-34-6788Lxlspwjvl Result EncounterGeneric External Data ProviderNOMS External Department UnsolicitedStart: 09-24-2024 End: 47-66-9520Egrjkpixg Result EncounterGeneric External Data ProviderNOMS External Department UnsolicitedStart: 09-18-2024 End: 09-60-6080Ppskrhhff encounterCarina Ziegler RNTransplant CenterComment on above:dc ed schedulingStart: 34-11-5056Zsbcpth encounter statusCarina Ziegler RN [facility] Hospitaltart: 09-10-2024 End: 66-32-5701Bcvms abstractJabier Vázquez RNTransplant CenterComment on above:Transplant SerologiesStart: 09-09-2024 End: 00-50-5414Olqutjuli Result EncounterGeneric External Data ProviderNOMS External Department UnsolicitedStart: 09-09-2024 End: 02-86-3520Ipotfsmce Result EncounterGeneric External Data ProviderNOMS External Department UnsolicitedStart: 09-08-2024 End: 39-23-3604Zciloctzc Result EncounterGeneric External Data ProviderNOMS External Department UnsolicitedStart: 09-08-2024 End: 60-26-5472Exogezsub Result EncounterGeneric External Data ProviderNOMS External Department UnsolicitedStart: 09-08-2024 End: 63-78-3428Wtomhdutg encounterVirginia Blevins RRTTransplant CenterStart: 09-06-2024 End: 84-50-5361Zwmuonozg Result EncounterGeneric External Data ProviderNOMS External Department UnsolicitedStart: 09-06-2024 End: 46-85-6299Pqxhfoshg Result EncounterGeneric External Data ProviderNOMS External Department UnsolicitedStart: 09-04-2024 End: 39-14-9266Luylet-up encounterGiana Kingston MD Work Phone: GastroenterologyStart: 09-02-2024 End: 77-48-1015Csohddjah Result EncounterGeneric External Data ProviderNOMS External Department UnsolicitedStart: 09-02-2024 End: 84-38-5375Esdaaikld Result EncounterGeneric External Data ProviderNOMS External Department UnsolicitedStart: 09-02-2024 End: 31-40-3011Qeqpkuczw encounterYesica Bright RNTransplant CenterStart: 09-01-2024 End: 79-06-6131Dmznxnwwo Result EncounterGeneric External Data ProviderNOMS External Department UnsolicitedStart: 09-01-2024 End: 81-96-6645Yamckjfom Result EncounterGeneric External Data ProviderNOMS External Department UnsolicitedStart: 08-31-2024 End: 58-26-8863Yzaagwxpg Result EncounterGeneric External Data ProviderNOMS External Department UnsolicitedStart: 08-31-2024 End: 07-76-3642Lyaytouwe Result EncounterGeneric External Data ProviderNOMS External Department UnsolicitedStart: 46-55-4196Iiyuunf encounter statusYesica Bright RNCleveland ClinicStart: 08-29-2024 End: 32-63-0235Cvycarcry encounterYesica Bright RNPglendale adventist medical centers Corey HospitalComment on above:OLT selection mtg pt notificationStart: 08-28-2024 End: 80-09-8784Sdsdusglap and management of inpatientVenus Markie DMD Work Phone: DentistryComment on above:Hepatic encephalopathy (HCC) (Primary Dx); Decompensated cirrhosis (HCC); Pre-operative clearanceStart: 08-28-2024 End: 68-77-5704Ieijpkqqgyrl stateMyyaz Aden DMD Work Phone: [facility] Hospitaltart: 08-27-2024 End: 84-66-6843Kbsiewoyl Result EncounterGeneric External Data ProviderNOMS External Department UnsolicitedStart: 08-27-2024 End: 79-07-1880Qscygyjro Result EncounterGeneric External Data ProviderNOMS External Department UnsolicitedStart: 08-27-2024 End: 98-84-0762Tecuyd OnlyLijosselyn Txp Coordinator Work Phone: Transplant CenterComment on above:Laennec's cirrhosis (HCC) (Primary Dx)Informed Consent (91); Patient EducationStart: 08-27-2024 End: 80-73-4528Ttpyhiulvw and management of inpatientLisa Chava ATKINS Work Phone: Transplant CenterStart: 08-26-2024 End: 37-31-5057Ppizkh Jaziel Black PA-C Work Phone: gastroenterologyComment on above:Other ascites (Primary Dx)Start: 08-24-2024 End: 35-99-7626osssdaognaPgqcwm Junna MD Work Phone: GastroenterologyComment on above:[facility] [place] [facility]ospStart: 08-23-2024 End: 01-69-9165Gtzqohimq Result EncounterGeneric External Data ProviderNOMS External Department UnsolicitedStart: 08-23-2024 End: 09-73-0796Wvdzplaib Result EncounterGeneric External Data ProviderNOMS External Department UnsolicitedStart: 08-23-2024 End: 61-45-0501Xqegimzamp and management of inpatientWALNICOL CARRERAMOUD Facility[facility]: 08-22-2024 End: 87-43-3455Wngmqcfhi Elaine Garg MD Work Phone: GastroenterologyComment on above:Patient Update Abnormal bone scan of thoracic spine (Primary Dx)Start: 08-20-2024 End: 22-06-5446xdofjwvesaNyioxsivr M Jones RNGastroenterologyStart: 08-20-2024 End: 65-48-0048Rcmjib-up encounterSjigar Garg MD Work Phone: Transplant CenterStart: 08-19-2024 End: 86-10-7484Qnhjwi flowsMehran Espino PA Work Phone: NOMS CI FMStart: 08-19-2024 End: 26-16-3537Oojxnj flowsMehran Espino PA Work Phone: NOMS CI FMStart: 08-19-2024 End: 83-68-4135Uruull outpatient visit 15 minutesXuan Espino PA Work Phone: NOMS CI FMComment on above:Other acute postprocedural pain (Primary Dx); Type 2 diabetes mellitus with hyperglycemia, without long-term current use of insulin (CMS/HCC)Start: 08-19-2024 End: 65-11-1459pptjxpkyrbBIKGG M HEMMERNot AvailableStart: 08-14-2024 End: 84-26-9814Iszysu Irina Garg MD Work Phone: GastroenterologyComment on above:Cirrhosis of liver without ascites, unspecified hepatic cirrhosis type (HCC) (Primary Dx); Liver transplant candidate; Lesion of liver greater than 1 cm in diameter; Alcoholic cirrhosis of liver with ascites (HCC)Colonoscopy Prep the day before procedureColonoscopyStart: 08-12-2024 End: 48-73-4052Mxqypw Irina Garg MD Work Phone: GastroenterologyComment on above:Encounter for screening colonoscopy (Primary Dx)Start: 08-09-2024 End: 22-80-5694bctvcxxwvwWrwtxk Junna MD Work Phone: GastroenterologyComment on above:EGDStart: 08-09-2024 End: 50-54-0700T-mail encounter from Latha Garg MD Work Phone: GastroenterologyStart: 08-06-2024 End: 89-06-7678Hungxngdy Result EncounterGeneric External Data ProviderNOMS External Department UnsolicitedStart: 08-06-2024 End: 54-20-4446Xvilcmfjh Result EncounterGeneric External Data ProviderNOMS External Department UnsolicitedStart: 08-06-2024 End: 80-11-3695dastrvybhfSBEOPE B BERRY IIFacility:[facility] Start: 08-05-2024 End: 97-00-8273Quqkxcnpv Result EncounterGeneric External Data ProviderNOMS External Department UnsolicitedStart: 08-05-2024 End: 29-20-8965Euqnmbadf Result EncounterGeneric External Data ProviderNOMS External Department UnsolicitedStart: 07-31-2024 End: 92-91-0719Uljmftymk Result EncounterGeneric External Data ProviderNOMS External Department UnsolicitedStart: 07-31-2024 End: 76-99-5151Bhobmgsld Result EncounterGeneric External Data ProviderNOMS External Department UnsolicitedStart: 07-31-2024 End: 01-11-3604Avxxodgce encounterSjigar Garg MD Work Phone: GastroenterologyComment on above:ResultsStart: 07-30-2024 End: 38-96-1355Spzdpfhrf encounterDerrick Harris MD Work Phone: Radiation OncologyComment on above:Pad Making Machine Operator - OtherBiopsy RequestStart: 07-30-2024 End: 26-05-9327Rpoipsmli to same day surgery sister baySanjay Robledo II Work Phone: [facility]-Ul[facility]ound [facility] [place] Work Phone: Start: 07-30-2024 End: 02-15-9140tqtoewaqmvDwczej Berry II Work Phone: [facility] Work Phone: Start: 07-25-2024 End: 03-56-5578Ofuctpz encounter procedureDerrick Harris MD Work Phone: Radiation OncologyComment on above:Hepatocellular carcinoma (HCC) (Primary Dx)Start: 07-25-2024 End: 90-65-4548exgdljeagyKKIGVF B BERRY IIFacility:[facility] Start: 07-25-2024 End: 21-52-8758Feqhkz outpatient visit 25 minutesDmitri Garg MD Work Phone: GastroenterologyComment on above:Cirrhosis of liver without ascites, unspecified hepatic cirrhosis type (HCC) (Primary Dx)Start: 07-15-2024 End: 05-53-4022Rpdgkqfmc encounterSjigar Garg MD Work Phone: GastroenterologyComment on above:Outside Lab Results Start: 07-13-2024 End: 91-53-3321Knktpqqte Result EncounterGeneric External Data ProviderNOMS External Department UnsolicitedStart: 07-13-2024 End: 14-81-0300Aodfetjks Result EncounterGeneric External Data ProviderNOMS External Department UnsolicitedStart: 07-12-2024 End: 95-86-7399Broxkf Irina Garg MD Work Phone: GastroenterologyComment on above:Metastatic malignant neoplasm, unspecified site (HCC) (Primary Dx)Start: 07-11-2024 End: 35-22-5765lcrsejqgupLdm ProviderGastroenterologyComment on above:Weekly Lab drawStart: 07-11-2024 End: 64-57-6698V-mail encounter from caregiverCcf ProviderGastroenterologyStart: 07-11-2024 End: 33-09-2583Diskjvcad encounterYesica Bright RNTransplant CenterComment on above:OLT selection mtg pt notificationStart: 07-08-2024 End: 95-24-0693C-mail encounter from caregiverCcf ProviderGastroenterologyStart: 07-08-2024 End: 36-91-8661Fqpfebn encounter procedureCcf ProviderGastroenterologyComment on above:Tumor clinic appt with Dr Brewertart: 07-08-2024 End: 02-20-2097Jzxjarnvp encounterYesica Bright RNTransplant CenterComment on above:OLT evaluationStart: 07-07-2024 End: 59-00-9909Cpeqyd Irina Garg MD Work Phone: Transplant CenterComment on above: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) (Primary Dx)Start: 07-05-2024 End: 10-54-8745jabqjxermoAEQPQO B BERRY IIFacility:[facility] Start: 07-05-2024 End: 84-90-2542Mijhydqeqx hospital visit by Louise [address] (I-Stat/1.5t/3t) Work Phone: MRI QComment on above:Pathological fracture, other site, initial encounter for fracture [M84.48XA]Start: 07-05-2024 End: 89-64-0640vhyvitzpryJMCCME B BERRY IIFacility:[facility] Start: 07-05-2024 End: 40-92-2420Wqbvnkzvfz hospital visit by Sharon Gregg MD Work Phone: GastroenterologyComment on above:Pleural effusion [J90]Start: 07-02-2024 End: 34-47-5387Rooajh Irina Garg MD Work Phone: Transplant CenterComment on above:Other ascites (Primary Dx)Start: 07-01-2024 End: 35-65-3560Xwxulpjiy encounterYesica Bright RNTransplant CenterComment on above:Follow UpStart: 06-24-2024 End: 28-29-2685Stkqmwpzt encounterSjigar Garg MD Work Phone: GastroenterologyComment on above:Outside Labs Results (chemistry)Start: 06-19-2024 End: 74-81-4965Loxnnhuro encounterNenita Readus HUCAdmittingComment on above: Appointment; (Thoracentesis)Liver transplant candidate (Primary Dx)Start: 06-19-2024 End: 94-87-8480Ojpxlyevk to same day surgery centerDajackie Robledo II Work Phone: [facility]-Ultrasound Main [place] Work Phone: Start: 06-19-2024 End: 56-74-0878iuqhvzaoraMgdzho Berry II Work Phone: [facility] Work Phone: Start: 06-14-2024 End: 23-03-0829Dndhqofxf Result EncounterGeneric External Data ProviderNOMS External Department UnsolicitedStart: 06-14-2024 End: 33-38-4919Bkvgwmdfx Result EncounterGeneric External Data ProviderNOMS External Department UnsolicitedStart: 06-14-2024 End: 84-63-6792Yfkykqazv encounterYesica Bright RNTransplant CenterComment on above:Follow UpStart: 06-11-2024 End: 40-94-7424Cbclhv Irina Garg MD Work Phone: Transplant CenterComment on above:Other ascites (Primary Dx)Start: 06-10-2024 End: 51-63-9143Uhycgl Irina Garg MD Work Phone: GastroenterologyComment on above:Pathological fracture, other site, initial encounter for fracture (Primary Dx)2nd Hepatitis B shotStart: 06-08-2024 End: 33-30-0517Ofpibmqmt Result EncounterGeneric External Data ProviderNOMS External Department UnsolicitedStart: 06-08-2024 End: 61-45-4808Stimytzsi Result EncounterGeneric External Data ProviderNOMS External Department UnsolicitedStart: 06-08-2024 End: 98-63-1622uhizlmxdnyHSSTYY B BERRY IIFacility:[facility] Start: 06-08-2024 End: 70-98-7415Wenyuvjehz hospital visit by physicianMri [address] Q (I-Stat/1.5t/3t) Work Phone: MRI QComment on above:Low back pain, unspecified back pain laterality, unspecified chronicity, unspecified whether sciatica present [M54.50]Start: 06-07-2024 End: 99-55-1483Dykrlnlix Result EncounterGeneric External Data ProviderNOMS External Department UnsolicitedStart: 06-07-2024 End: 95-19-4924Hdwksegsu Result EncounterGeneric External Data ProviderNOMS External Department UnsolicitedStart: 06-06-2024 End: 04-98-2162Hnoliykur encounterYesica Bright RNTransplant CenterComment on above:CARDIAC SUBCOMMITTEE MTGStart: 06-04-2024 End: 20-41-6744Uvcwvmndc Result EncounterGeneric External Data ProviderNOMS External Department UnsolicitedStart: 06-04-2024 End: 25-80-6397Wogecfial Result EncounterGeneric External Data ProviderNOMS External Department UnsolicitedStart: 06-04-2024 End: 26-69-7200euvvtmakmgEGIJKU B BERRY IIFacility:[facility] Start: 06-04-2024 End: 91-89-3080Tvivxrgzxu hospital visit by Brett [facility] Simin Work Phone: RadiologyComment on above:Liver transplant candidate [Z76.82]Start: 06-03-2024 End: 75-89-4993Nspkbmcjz encounterYesica Bright RNTransplant CenterStart: 05-31-2024 End: 96-68-8322Okhaidcti Result EncounterGeneric External Data ProviderNOMS External Department UnsolicitedStart: 05-31-2024 End: 09-33-3241Lcgaetkpe Result EncounterGeneric External Data ProviderNOMS External Department UnsolicitedStart: 05-31-2024 End: 71-67-9651Ylookhshxg hospital visit by physicianHepatology Procedures Q3 GastroenterologyComment on above:Other ascites [R18.8]Start: 05-31-2024 End: 18-05-5629nfnanzxztoUibf Taimeh MD Work Phone: Pulmonary MedicineComment on above:SpirometryPre-Op ExamStart: 05-31-2024 End: 58-45-7965Sysefqn encounter procedurePulm Fct Lab J-1Pulmonary Medicine Start: 81-13-2818lizzypimpaHISFYG B BERRY IIFacility:[facility] Start: 05-30-2024 End: 19-68-9643Bauseqcfms hospital visit by physicianRaymond Penaloza MD Work Phone: AdmittingComment on above:Bronchiolar disease [J98.09] Start: 05-30-2024 End: 34-65-7690Hhtpodnxp encounterYesica Bright RNTransplant CenterComment on above:Follow UpEducation Of Patient/familyUnilateral inguinal hernia without obstruction or gangrene, recurrence not specified (Primary Dx)Start: 05-29-2024 End: 10-75-1107bqvyviosgwEynydaeuz Girard MD Work Phone: Pulmonary MedicineComment on above:TestsStart: 05-24-2024 End: 99-74-8315Nakuzx Irina Garg MD Work Phone: GastroenterologyComment on above:Other ascites (Primary Dx)Start: 05-23-2024 End: 44-07-9835Cuwftee encounter procedurePulm Fct Lab Main 8Pulmonary Medicine Comment on above:Pleural effusion associated with hepatic disorder; Shortness of breath; Lesion of liver greater than 1 cm in diameter; Alcoholic cirrhosis of liver with ascites (HCC); Liver transplant candidate; Metabolic dysfunction-associated steatotic liver disease (MASLD)Start: 05-23-2024 End: 69-71-8045Racatgjfnh hospital visit by physicianXr Chest Main O76Ingdcfmag Comment on above:Dyspnea, unspecified type [R06.00]Start: 05-23-2024 End: 81-41-0415hhvqxazhjwRkam Fct Lab Main 8Pulmonary MedicineComment on above: SpirometryStart: 05-21-2024 End: 49-80-0863lgytsobkisLytfjcBrendan Arora MD Work Phone: CardiologyComment on above:Blood workStart: 05-20-2024 End: 38-45-2815yzqgpbsgndFpjjvuBrendan Arora MD Work Phone: CardiologyComment on above:Blood workStart: 05-20-2024 End: 53-64-5034Buuelmqya encounterYesica Bright RNTransplant CenterStart: 05-18-2024 End: 74-97-6950Rujykd Irina Garg MD Work Phone: GastroenterologyComment on above:Liver mass (Primary Dx); Low back pain, unspecified back pain laterality, unspecified chronicity, unspecified whether sciatica presentStart: 05-17-2024 End: 75-33-6104Wexvcuxpm encounterYesica Bright RNTransplant CenterComment on above:Follow UpStart: 05-16-2024 End: 15-85-6037Dqelog Jimmy Robledo MD Work Phone: NOMS CI FMStart: 05-16-2024 End: 63-35-5515Uqqabo Jimmy Robledo MD Work Phone: NOMS CI FMStart: 05-16-2024 End: 54-70-8060sosttunrdpQZEKMS B BERRYNot AvailableStart: 05-14-2024 End: 47-99-6756Wsnnye Irina Garg MD Work Phone: Transplant CenterComment on above:Cirrhosis of liver without ascites, unspecified hepatic cirrhosis type (HCC) (Primary Dx)Start: 05-10-2024 End: 10-09-7258Ppblwiava encounterSjigar Garg MD Work Phone: GastroenterologyComment on above:Results, LabResults Start: 05-09-2024 End: 64-70-3253Qtjtkzuao Result EncounterGeneric External Data ProviderNOMS External Department UnsolicitedStart: 05-09-2024 End: 31-88-5169Pdpzlsfik Result EncounterGeneric External Data ProviderNOMS External Department UnsolicitedStart: 05-07-2024 End: 84-38-7966Iltlumdue encounterYesica Bright RNTransplant CenterComment on above:Follow UpStart: 05-06-2024 End: 40-42-3860Vbgqtkqbd encounterYesica Bright RNTransplant CenterStart: 05-04-2024 End: 24-58-5323Twlybp Irina Garg MD Work Phone: Transplant CenterStart: 93-07-1981Cugxflptw for other preprocedural examinationCHRISTINE KOVALCleMiami Valley HospitalStart: 05-02-2024 End: 48-12-0574Tsmzhyw encounter statusBrisa Seals MD Work Phone: [facility]Hol[facility] Jacksontart: 05-02-2024 End: 88-92-6715ilwebzbaefQPZVEXTMW KOVALFacility:[facility] Clinictart: 05-02-2024 End: 78-53-1453Psdlucm encounter procedureJade Arora MD Work Phone: CardiologyComment on above:Pleural effusion associated with hepatic disorder; Shortness of breath; Lesion of liver greater than 1 cm in diameter; Alcoholic cirrhosis of liver with ascites (HCC); Liver transplant candidate; Metabolic dysfunction-associated steatotic liver disease (MASLD)Need for vaccination (Primary Dx); Lesion of liver greater than 1 cm in diameter; Alcoholic cirrhosis of liver with ascites (HCC); Liver transplant candidate; Metabolic dysfunction-associated steatotic liver disease (MASLD); Pre-transplant evaluation for chronic liver diseaseStart: 05-01-2024 End: 90-96-0149okdbaowwkaZYEWASECA HOSPITAL AND CLINIC LOWFacility:[facility] Clinictart: 05-01-2024 End: 29-09-5810Kuflqxw encounter procedureAnesthesia [facility] Work Phone: Transplant CenterComment on above:Thrombocytopenia (HCC) (Primary Dx); Pleural effusion associated with hepatic disorder; Shortness of breath; Lesion of liver greater than 1 cm in diameter; Alcoholic cirrhosis of liver with ascites (HCC); Liver transplant candidate; Metabolic dysfunction-associated steatotic liver disease (MASLD)Other ascites (Primary Dx)Start: 05-01-2024 End: 80-97-6917Muohesndke hospital visit by physicianHepatology Procedures Q3 GastroenterologyComment on above:Pleural effusion associated with hepatic disorder [K76.9, J91.8]Start: 05-01-2024 End: 15-79-5993llivsahbqcNGXUFS JUNNAFacility:[facility] Clinictart: 04-30-2024 End: 32-09-9497Njfdew outpatient new 60 minutesChoon Wenceslao Weir MD Work Phone: Transplant CenterComment on above:Alcoholic cirrhosis of liver with ascites (HCC) (Primary Dx); Liver transplant candidate; Type 2 diabetes mellitus without complication, without long-term current use of insulin (HCC); Encounter for education about transplantation; Pre-transplant evaluation for liver transplant; Portal hypertension (HCC); Hepatic encephalopathy (HCC); Umbilical hernia without obstruction or gangrene; Personal history of other malignant neoplasm of skinStart: 04-30-2024 End: 49-22-4783Oibkayi encounter statusChovelia Weir MD Work Phone: [facility] Hospitaltart: 04-30-2024 End: 53-89-2439B-mail encounter from Yuridiakindred hospital p[facility]leni [facility] CenterTrans[facility] Start: 04-30-2024 End: 76-57-0522Smkvqpmru encounterNenita Readus HUCAdmittingComment on above: Appointment; (Thoracentesis)Patient EducationStart: 04-30-2024 End: 44-04-2846Krpqrto encounter procedureTransplant PharmacistTransplant Center Comment on above:Encounter for medication review and counselingStart: 04-30-2024 End: 26-91-7944zhjinzsvgkOhjtfdakFormerly [facility] County CenterComment on above:Pre liver CoordinatorStart: 04-29-2024 End: 55-86-9919Xdlmkhbgwo hospital visit by physicianCt 2 Main Qb (I-Stat) RadiologyComment on above:Lesion of liver greater than 1 cm in diameter [K76.9] Start: 04-29-2024 End: 51-97-2233Srcpnlvcn therapyNatalie Crtalic-Sandy RD Work Phone: Nutrition TherapyComment on above:Patient Education; AssessmentStart: 04-29-2024 End: 40-58-1946Xmxzijm encounter procedurePulm Fct Lab Main 8Pulmonary Medicine Comment on above:Pleural effusion associated with hepatic disorder; Shortness of breath; Lesion of liver greater than 1 cm in diameter; Encounter for screening for malignant neoplasm of prostate; Alcoholic cirrhosis of liver with ascites (HCC); Liver transplant candidate; Metabolic dysfunction-associated steatotic liver disease (MASLD)Start: 04-29-2024 End: 32-45-8579wumxjhgccvGnrz Fct Lab Main 8Pulmonary MedicineComment on above: SpirometryStart: 04-25-2024 End: 27-70-7383hhrcathaqtBxjtq Txp Coordinator Work Phone: Transplant CenterComment on above:Encounter for education (Primary Dx)Start: 04-25-2024 End: 27-83-0685Vdhqxnoyrxie consultation with patientLiver Txp Coordinator Work Phone: Transplant CenterStart: 04-24-2024 End: 45-77-2306Gqmcfsnkn encounterLiver Txp Coordinator Work Phone: Transplant CenterComment on above:Reminder Call; Liver EvalStart: 04-23-2024 End: 73-93-7693Lmahrnuek encounterVirginia Hickman RNTransplant CenterComment on above:Referral - Liver Txp (Intake)Start: 04-22-2024 End: 93-93-8859Kuuiaooyp encounterJillian Aguayo TechTransplant CenterComment on above:Follow UpStart: 04-03-2024 End: 29-97-6380Rfxybdwnm Result EncounterGeneric External Data ProviderNOMS External Department UnsolicitedStart: 04-03-2024 End: 14-94-7214Lxptrqvoc Result EncounterGeneric External Data ProviderNOMS External Department UnsolicitedStart: 03-28-2024 End: 36-82-4274htspjrsndlIdvdy Txp Coordinator Work Phone: Transplant CenterComment on above:Liver Transplant Start: 03-28-2024 End: 34-79-4634Y-mail encounter from caregiverLiver Txp Coordinator Work Phone: Transplant CenterStart: 03-28-2024 End: 26-90-5805Dhgdupnox encounterLiver Txp Coordinator Work Phone: Transplant CenterComment on above:Referral - Liver Txp Start: 03-25-2024 End: 75-41-2465Yhrywqzsb encounterLiver Txp Coordinator Work Phone: Transplant CenterComment on above:Referral - Liver Txp Start: 03-12-2024 End: 05-19-7013Hifooctzq Result EncounterGeneric External Data ProviderNOMS External Department UnsolicitedStart: 03-12-2024 End: 75-78-1024Anwfdvoib Result EncounterGeneric External Data ProviderNOMS External Department UnsolicitedStart: 03-08-2024 End: 41-85-4956oewclotcvdARZCKettering Health Washington Townshiptart: 03-08-2024 End: 74-87-9433wmfnmhpajaJESJKettering Health Washington Townshiptart: 08-22-7481Hoaqidekmg and management of inpatientABDALLAH [facility]atitart: 95-36-6082Ukrxvraapm and management of inpatientFADI [facility] Hospitaltart: 02-19-2024 End: 29-64-0631ypqbuvizftYUKMKettering Health Washington Townshiptart: 02-19-2024 End: 97-58-6327Pejdwhcctv and management of inpatientMUHAMMAD [facility], Inctart: 02-15-2024 End: 95-82-9864uobboodqanIPJAVIW [facility] Start: 02-12-2024 End: 02-06-6079Mtmekarcg Result EncounterGeneric External Data ProviderNOMS External Department UnsolicitedStart: 02-12-2024 End: 57-04-9116Fzgndmniw Result EncounterGeneric External Data ProviderNOMS External Department UnsolicitedStart: 01-25-2024 End: 44-69-8977Admbhnqjy Result EncounterGeneric External Data ProviderNOMS External Department UnsolicitedStart: 01-25-2024 End: 32-32-0544Pfwgzkjlf Result EncounterGeneric External Data ProviderNOMS External Department UnsolicitedStart: 01-24-2024 End: 70-84-5515Gzxbrfyvy Result EncounterGeneric External Data ProviderNOMS External Department UnsolicitedStart: 01-24-2024 End: 08-75-8172Cjarcqigo Result EncounterGeneric External Data ProviderNOMS External Department UnsolicitedStart: 01-18-2024 End: 59-89-9016Jevhtp lvMaryeze Aly Wrad DO Work Phone: noms NB OPHTStart: 01-18-2024 End: 27-48-1749Vwsvxx Glennypatriciaeze Aly Ward DO Work Phone: noms NB OPHTStart: 01-18-2024 End: 57-39-3982wteixfthypDMFJZDLG D ZAHLERNot AvailableStart: 01-05-2024 End: 40-72-7403Meosmclsb Result EncounterGeneric External Data ProviderNOMS External Department UnsolicitedStart: 01-05-2024 End: 16-05-9017Sigxlbest Result EncounterGeneric External Data ProviderNOMS External Department UnsolicitedStart: 01-03-2024 End: 38-50-1139Bjgwwqmdm Result EncounterGeneric External Data ProviderNOMS External Department UnsolicitedStart: 01-03-2024 End: 84-79-0722Wkufdpxmc Result EncounterGeneric External Data ProviderNOMS External Department UnsolicitedStart: 01-03-2024 End: 38-15-0682qariisikzqBN Daniel Berry Work Phone: [facility] Work Phone: Start: 01-03-2024 End: 01-18-4840Rankbzch ReferredJUDITH Robledo Work Phone: [facility]-LAB Path Spec [facility]ina HospStart: 15-23-4464piabnedqioKSADOhioHealth Grove [facility] Start: 12-27-2023 End: 09-39-2865enzayfrdniLQYSOhioHealth Pickerington Methodist Hospitaltart: 12-20-2023 End: 19-21-2415Lpdchanpd Result EncounterGeneric External Data ProviderNOMS External Department UnsolicitedStart: 12-20-2023 End: 23-39-8310Jyinaleev Result EncounterGeneric External Data ProviderNOMS External Department UnsolicitedStart: 12-13-2023 End: 63-29-9665Gcbipveeh Result EncounterGeneric External Data ProviderNOMS External Department UnsolicitedStart: 12-13-2023 End: 09-24-5018Atgfecstj Result EncounterGeneric External Data ProviderNOMS External Department UnsolicitedStart: 12-13-2023 End: 71-26-7614Scolndcrsdfo care manage srvc 7 day dischargeXuan MALDONADO Work Phone: NOPW FMComment on above:Cirrhosis of liver with ascites, unspecified hepatic cirrhosis type (CMS/HCC) (Primary Dx); Dizziness; Abdominal distension; QUESADA (dyspnea on exertion); Gastroesophageal reflux disease without esophagitis; Other ascites; Secondary esophageal varices without bleeding (CMS/HCC)Start: 12-13-2023 End: 17-09-1637caekfmkvjuAHSDU M HEMMERNot AvailableStart: 12-12-2023 End: 71-08-3982ldehuzdxpuJQ Daniel Berry Work Phone: [facility] Work Phone: Start: 12-12-2023 End: 26-12-5418Sdgexbaq ReferredII Sanjay Robledo Work Phone: [facility]-LAB Path Spec [place] HospStart: 12-08-2023 End: 44-17-2501Mlkhtgegs Result EncounterGeneric External Data ProviderNOMS External Department UnsolicitedStart: 12-08-2023 End: 47-35-1012Vtyxmpnrw Result EncounterGeneric External Data ProviderNOMS External Department UnsolicitedStart: 12-08-2023 End: 96-35-8744ireonfbqfgQA Daniel Berry Work Phone: [facility] Work Phone: Start: 12-08-2023 End: 89-12-0390Crfgyicq ReferredII Sanjay Robledo Work Phone: [facility]-LAB Path Spec [place] HospStart: 20-68-0030Jjp-patient / Non-visitII Sanjay Robledo Work Phone: [facility] Work Phone: Start: 12-07-2023 End: 00-38-8098flfunmugkqYU Sanjay Robledo Work Phone: [facility] Work Phone: Start: 12-07-2023 End: 94-41-4076Anamskqt ReferredJUDITH Robledo Work Phone: [facility]-LAB Path Spec [place] HospStart: 12-07-2023 End: 19-40-9754Mbxioysbd Result EncounterGeneric External Data ProviderNOMS External Department UnsolicitedStart: 12-07-2023 End: 81-75-1951Pwroqesot Result EncounterGeneric External Data ProviderNOMS External Department UnsolicitedStart: 11-27-2023 End: 93-73-8982xwnnnelmuyDEKQKettering Health Washington Townshiptart: 11-15-2023 End: 45-28-6175ywmumjpfloJDVBWM B BERRYNot AvailableStart: 11-14-2023 End: 15-75-2729uxwtzaqyxsVDZBUXP RESEARCHAvita Health System [facility] Start: 11-08-2023 End: 17-61-2208ptoaqhwbyoEBEBJF LOWENot AvailableStart: 10-23-2023 End: 71-29-8449Tlaqofepm Result EncounterGeneric External Data ProviderNOMS External Department UnsolicitedStart: 10-23-2023 End: 79-59-6052Hjmqxeduf Result EncounterGeneric External Data ProviderNOMS External Department UnsolicitedStart: 33-52-3220vgjygmheojULUVKettering Health Washington Townshiptart: 10-13-2023 End: 73-46-1088frliewnolpQYNWPremier Health Miami Valley Hospitaltart: 10-09-2023 End: 90-39-0298uhztrcimoeUAUOND BERRYNot AvailableStart: 10-03-2023 End: 52-17-8467Owxisevcq Result EncounterGeneric External Data ProviderNOMS External Department UnsolicitedStart: 10-03-2023 End: 65-93-0592Zfxdkdnky Result EncounterGeneric External Data ProviderNOMS External Department UnsolicitedStart: 10-03-2023 End: 70-09-4623trohyupjdqKW Sanjay Robledo Work Phone: [facility] Work Phone: Start: 10-03-2023 End: 27-60-3597Ukisbntv ReferredII Sanjay Robledo Work Phone: [facility]-LAB Path Spec [place] HospStart: 10-02-2023 End: 81-73-6769nuxsdwppvuDLRRCVJY DENBESTENNot AvailableStart: 09-25-2023 End: 88-26-6415mhjybmovzkJSFZHGPU [facility] Easttart: 09-15-2023 End: 65-61-9356oorchejxoaPIRASD BENEDICTNot AvailableStart: 09-12-2023 End: 44-22-1130Emvluzqas Result EncounterSastrid Esparza MD Work Phone: noms External Department UnsolicitedStart: 09-12-2023 End: 06-76-8688Xgpyrilqw Result EncounterSastrid Esparza MD Work Phone: noms External Department UnsolicitedStart: 09-05-2023 End: 55-40-2106rklehaujqiAATECU BENEDICTNot AvailableStart: 08-30-2023 End: 95-15-5393rhekqkqhdiPNSDWR BENEDICTNot AvailableStart: 07-12-2023 End: 23-22-3068iqkygdvagrVnowfjv H ItzkowitzFacility:EU [place]uskyStart: 07-12-2023 End: 81-11-6825Cwnqhyk encounter procedurePatricalbania ARRIAZA [facility] Josue Start: 07-05-2023 End: 44-81-3135sngdwqxdaaJG Sanjay Robledo Work Phone: [facility] Work Phone: Start: 07-05-2023 End: 88-95-9927Noencqm encounter procedureII Sanjay Robledo Work Phone: [facility] Gastroenterology Work Phone: Start: 00-63-3080fwauwxwxlrEobtnqa Itzkowitz Facility: DelmydanteyStart: 06-13-2023 End: 40-25-3654Ypnzvykon to same day surgery centerII Sanjay Robledo Work Phone: [facility] CampusStart: 06-02-2023 End: 04-74-8752kybznbremiTW Sanjay Robledo Work Phone: [facility] Work Phone: Start: 06-02-2023 End: 64-11-4231Akypmkr encounter procedureII Sanjay Robledo Work Phone: [facility]-Pre-Surgical Testing Work Phone: Start: 05-31-2023 End: 69-47-7553Gptzrc outpatient visit 25 minutesFredric H Itzkowitz DO Work Phone: noms ST GENSComment on above:Fissure in ano (Primary Dx)Start: 05-23-2023 End: 73-52-8878Eqbusxxno to same day surgery centerII Sanjay Robledo Work Phone: [facility]-Digestive Health Work Phone: Start: 05-18-2023 End: 12-87-4208Fpsjxg outpatient new 45 minutesFredric H Itzkowitz DO Work Phone: noms ST GENSComment on above:Fissure in anoStart: 05-11-2023 End: 19-55-2635svjhyzpitiZsjn [employer] Other [employer] Other Start: 52-92-1462Yfxuek outpatient visit 15 minutes Rick ScJanellG GastroenterologyStart: 04-28-2023 End: 46-09-8562txjevduftkObfm [employer] Other [employer] Other Start: 61-01-5981Mzbecmzxz encounterRyan ScovannerFPG GastroenterologyStart: 04-27-2023 End: 65-54-1523kwlnaqjtcoDqbu [employer] Other [employer] Other Start: 44-34-7185Xwjidppkq encounterRyan ScovannerFPG GastroenterologyStart: 04-26-2023 End: 59-77-9464Alqtbnk encounter procedureII Sanjay Robledo Work Phone: [facility] Work Phone: Start: 04-13-2023 End: 77-28-6916wjgrcjzehrDiga [employer] Other [employer] Other Start: 97-20-7730Naazevdpn encounterRyan ScovannerFPG GastroenterologyStart: 56-02-0981Mqgfpk outpatient visit 25 minutesRyan ScovannerFPG GastroenterologyStart: 99-17-3987Figrypsze encounterRyan Scovanner FPG GastroenterologyStart: 04-12-2023 End: 05-98-8892henrestrviAD Sanjay Robledo Work Phone: [employer] [employer] Other Start: 04-12-2023 End: 83-93-8861Niskydk encounter procedureII Sanjay Robledo Work Phone: [facility] Work Phone: Start: 04-12-2023 End: 59-43-4931Smhwzam encounter procedureII Sanjay Robledo Work Phone: [facility]astroenterology Work Phone: Start: 04-03-2023 End: 70-26-6356nnxiqbqyleMncm [employer] Other [employer] Other Start: 53-05-9806Dzvecpsyn encounterRyan ShannonFPG GastroenterologyStart: 11-18-2022 End: 87-19-1481yrfciyelgsVggq [employer] Other [employer] Other Start: 36-23-3103Bxaukiukl encounterRyan ScnayaFPG GastroenterologyStart: 11-15-2022 End: 68-36-8409hwxfufqxaaVT Sanjay Robledo Work Phone: [facility] Work Phone: Start: 11-15-2022 End: 89-03-1451Kxdwirn encounter procedureII Sanjay Robledo Work Phone: [facility]-Ultrasound [facility] [place] Work Phone: Start: 11-10-2022 End: 31-82-3732msltxlfklpKcav [employer] Other [employer] Other Start: 27-81-0594Xyepsh outpatient visit 15 minutes Rick JimenezG GastroenterologyStart: 11-03-2022 End: 66-63-6114Toxpxxe encounter procedureII Sanjay Robledo Work Phone: [facility]-Dig[facility]ive [facility] Work Phone: Start: 10-26-2022 End: 50-13-3411ppjnuxmtvmPO Sanjay Robledo Work Phone: [facility] Work Phone: Start: 10-26-2022 End: 69-93-6032Itjirnon ReferredII Sanjay Venkat Work Phone: [facility] Work Phone: Start: 10-26-2022 End: 79-45-8403Arnesjh encounter procedureII Sanjay Venkat Work Phone: [facility] Work Phone: Start: 09-21-2022 End: 87-69-8505Lrpanfmul to same day surgery centerII Sanjay Robledo Work Phone: [facility]-Dig[facility]ive [facility] Work Phone: Start: 09-21-2022 End: 70-27-5389wkhgowkkduMK Sanjay Robledo Work Phone: [facility] Work Phone: Procedures DateProcedureProcedure DetailPerforming ClinicianStart: 07-97-2438FK LUMBAR SPINE WO IVCONGeneric External Data ProviderStart: 21-44-3576MB THORACIC SPINE WO IVCONGeneric External Data ProviderStart: 07-28-5491Apllkhbd screenSANJAY ROBLEDO IIComment on above:Order Comment: Specimen Type: BLOOD SPECIMENOrdering Facility: [facility] Address: [id number] [place], [place] [address]Performed By: #### TSCR ####CC MAIN BLOOD BANKCLIA [id number] [address] AMERICAStart: 64-89-8901TYJ CBC W AUTO DIFF BLDGeneric External Data Provider Start: 40-32-8919JSJ NT-PROBNP SERPL-MCNCGeneric External Data ProviderStart: 55-80-4353CTN COMP METAB 2000 PNL SERPLGeneric External Data ProviderStart: 77-23-0373IWQ CRP SERPL-MCNCGeneric External Data ProviderStart: 28-78-6266GSQ MAGNESIUM SERPL-MCNCGeneric External Data ProviderStart: 88-37-2969Fqxxehfe screenSANJAY ROBLEDO IIComment on above:Order Comment: Specimen Type: BLOOD SPECIMENOrdering Facility: [facility] Address:[address] [place], [place] [address]Performed By: #### TSCR ####CC MAIN BLOOD BANKCLIA [id number] [address] AMERICAStart: 55-07-0729Pcmxfygo screenDAJACKIE ROBLEDO IIComment on above:Order Comment: Specimen Type: BLOOD SPECIMENOrdering Facility: [facility] Address:[address] [place], [place] [address]Performed By: #### TSCR ####CC MAIN BLOOD BANKCLIA [id number] [address] AMERICAStart: 92-13-7421YAG BACTERIA UR CULTGeneric External Data ProviderStart: 94-42-0956ZXE BACTERIA BLD CULTGeneric External Data ProviderStart: 50-69-4781Tvjrmtyd screenDANICIARA ROBLEDO IIComment on above: Order Comment: Specimen Type: BLOOD SPECIMENOrdering Facility: [facility] Address:[address] [place], [place] [address]Performed By: #### TSCR ####CC MAIN BLOOD BANKCLIA [id number] [address] AMERICAStart: 39-60-1346NdkenoyrfhsjvizyEitjzwm External Data ProviderStart: 34-85-4713Iol routine ecg w/least 12 lds w/i&rGeneric External Data ProviderStart: 69-83-3036GKK CYTOLOGY NON-GYNGeneric External Data ProviderStart: 00-34-8719RHL BACTERIA BLD CULTGeneric External Data Provider Start: 21-54-8397AWP BACTERIA FLD CULTGeneric External Data ProviderStart: 24-35-2324FHB BACTERIA SPEC RESP CULTGeneric External Data ProviderStart: 12-16-2024 End: 13-20-5052LNL BACTERIA BLD CULTGeneric External Data ProviderStart: 30-34-4221GKK RESP PATH 12B PNL SPEC JESSICA+PROBEGeneric External Data Provider Start: 52-07-4031IHY BACTERIA FLD CULTGeneric External Data ProviderStart: 90-00-3784Fal routine ecg w/least 12 lds w/i&rGeneric External Data Provider Start: 54-84-0309Blx routine ecg w/least 12 lds w/i&rGeneric External Data ProviderStart: 14-42-6410Nji routine ecg w/least 12 lds w/i&rGeneric External Data ProviderStart: 90-02-4256Ybb routine ecg w/least 12 lds w/i&rGeneric External Data ProviderStart: 02-88-9693RCO BACTERIA WND CULTGeneric External Data ProviderStart: 11-22-2024 End: 64-18-6877HKQ BACTERIA BLD CULTGeneric External Data ProviderStart: 87-57-1122Jaq routine ecg w/least 12 lds w/i&rGeneric External Data Provider Start: 37-26-5499ZXWTE CULTURE 1Generic External Data ProviderStart: 11-19-2024 URINE CULTURE - FRMCGeneric External Data ProviderStart: 23-01-6868Vxeqs 1996 panel - Serum or PlasmaLiver Coordinator Work Phone: Start: 55-48-7239Cbveh count complete auto&auto difrntl wbcCamila Meyers [employer]SAMPLE COLLECTOR Work Phone: Start: 65-97-0396CWE COMP METAB 2000 PNL SERPLGeneric External Data ProviderStart: 41-06-9219MGX MAGNESIUM SERPL-MCNCGeneric External Data ProviderStart: 69-26-9131BLO PHOSPHATE SERPL-MCNCGeneric External Data ProviderStart: 23-89-4661EGWH INTERP CBCDIF (LAB REFLEX ORDER-NO BILL)Camila Meyers [employer]SAMPLE COLLECTOR Work Phone: Start: 20-20-9751BNHJK REVIEWCamila Meyers [employer].SAMPLE COLLECTOR Work Phone: Start: 88-11-4376Xnpzn count complete auto&auto difrntl wbcSaman Anthony DO Work Phone: Start: 86-26-7086J-reactive proteinSaman [facility] DO Work Phone: Start: 06-63-6317JEV PHOSPHATE SERPL-MCNCGeneric External Data ProviderStart: 81-10-2148YPKPZmybiyb External Data ProviderStart: 79-74-7767Eazu dx collection specimen brushing/washingNick Cameron PA-C Work Phone: Start: 03-01-5929Xanzr count complete auto&auto difrntl wbcDavid Cruz DO Work Phone: Start: 31-50-6007Y-reactive proteinSaman Anthony DO Work Phone: Start: 93-52-3514HPC NT-PROBNP SERPL-MCNCGeneric External Data ProviderStart: 16-18-0636Pbiic cytomegalovirus quantificationSadenise Cruz DO Work Phone: Start: 40-45-6057Bjbupuj serum plasma/whole blood Camila Meyers [employer].SAMPLE COLLECTOR Work Phone: Start: 00-54-5303JRY ALBUMIN SERPL-MCNCGeneric External Data ProviderStart: 10-80-2629KON BAS METAB 2000 PNL SERPLGeneric External Data ProviderStart: 50-38-6138TXY MAGNESIUM SERPL-MCNCGeneric External Data ProviderStart: 02-82-4802KIC PHOSPHATE SERPL-MCNCGeneric External Data ProviderStart: 38-72-1735Wnsvb count complete auto&auto difrntl wbcDavid Cruz DO Work Phone: Start: 63-77-4576H-reactive proteinSaman Anthony DO Work Phone: Start: 54-07-1035OBG PHOSPHATE SERPL-MCNCGeneric External Data ProviderStart: 36-92-1761Mukdo count complete auto&auto difrntl wbcDavid Cruz DO Work Phone: Start: 36-95-3058K-reactive proteinSaman Anthony DO Work Phone: Start: 40-13-4489HHY NT-PROBNP SERPL-MCNCGeneric External Data ProviderStart: 46-64-8360Dfwpw cytomegalovirus quantificationDavid Cruz DO Work Phone: Start: 26-14-2108Kmafd count complete auto&auto difrntl wbcZachary Meyers [employer].SAMPLE COLLECTOR Work Phone: Start: 00-47-4788YDE MAGNESIUM SERPL-MCNCGeneric External Data ProviderStart: 74-91-1568UVF RENAL FUNC 1999 PNL SERPLGeneric External Data ProviderStart: 96-00-2694Uloxe count complete auto&auto difrntl wbcZachary Luigi [employer].SAMPLE COLLECTOR Work Phone: Start: 49-39-9451IYF MAGNESIUM SERPL-MCNCGeneric External Data ProviderStart: 29-05-0554TZI NT-PROBNP SERPL-MCNCGeneric External Data ProviderStart: 36-84-5931XZB RENAL FUNC 1999 PNL SERPLGeneric External Data ProviderStart: 76-22-5902Ojigm count complete auto&auto difrntl wbcDavid Hughesaffari DO Work Phone: Start: 42-55-4927M-reactive proteinSaman Anthony DO Work Phone: Start: 57-29-0659CDW PHOSPHATE SERPL-MCNCGeneric External Data ProviderStart: 30-59-5008WSP BACTERIA SPEC ANAEROBE CULTGeneric External Data ProviderStart: 71-45-5105LpwqegtwyvxntymbGiomhth External Data ProviderStart: 20-67-9951Dvm routine ecg w/least 12 lds w/i&rGeneric External Data ProviderStart: 41-00-3863BCA CYTOLOGY NON-GYNGeneric External Data Provider Start: 47-76-9651Uhi routine ecg w/least 12 lds w/i&rGeneric External Data ProviderStart: 92-12-8853OVE O+P SPEC MICROGeneric External Data ProviderStart: 96-61-3272LER RESP PATH 12B PNL SPEC JESSICA+PROBEGeneric External Data Provider Start: 07-67-0544IL ABD/PEL WO IVCONGeneric External Data ProviderStart: 80-30-4891LD BRAIN WO IVCONGeneric External Data ProviderStart: 13-22-5076Cg head/brain w/o contrast materialSaman Anthony DO Work Phone: Start: 44-63-8994Vmyqs count complete auto&auto difrntl wbcSadenise Cruz DO Work Phone: Start: 75-43-5445L-reactive proteinSaman Anthony DO Work Phone: Start: 67-93-2178JGL CBC W AUTO DIFF BLDGeneric External Data ProviderStart: 70-30-3841Yrvkm cytomegalovirus quantificationSadenise Cruz DO Work Phone: Start: 29-49-5467Vlijm count complete auto&auto difrntl wbcSuze Jenkins MD Work Phone: Start: 94-53-1259PPX CBC W AUTO DIFF BLDGeneric External Data ProviderStart: 12-55-0291Yzgfo count complete auto&auto difrntl wbcZajosé miguel Meeyrs APRN.SAMPLE COLLECTOR Work Phone: Start: 21-06-4751FHI CBC W AUTO DIFF BLDGeneric External Data ProviderStart: 61-97-6437Atkjz count complete auto&auto difrntl wbcDavid Cruz DO Work Phone: Start: 03-76-1130P-reactive proteinSaman Anthony DO Work Phone: Start: 28-79-8811TZP CBC W AUTO DIFF BLDGeneric External Data ProviderStart: 43-95-6558Fqasw count complete Moody Trinidad MD Work Phone: Start: 77-52-1574NZW CBC PNL BLD AUTOGeneric External Data ProviderStart: 97-15-4475Whxk screen quantitative tacrolimusDavid Cruz DO Work Phone: Start: 18-68-1892Yjjos count complete auto&auto difrntl wbcSuze Jenkins MD Work Phone: Start: 64-67-8461T-reactive proteinSuze Jenkins MD Work Phone: Start: 12-39-6968PRE CBC W AUTO DIFF BLDGeneric External Data ProviderStart: 21-75-3691Uleok count complete auto&auto difrntl wbcDavid Cruz DO Work Phone: Start: 80-64-6956Y-reactive proteinSaman Anthony DO Work Phone: Start: 01-80-4859AUC CBC W AUTO DIFF BLDGeneric External Data ProviderStart: 87-31-0356Hbzlm cytomegalovirus quantificationDavid Cruz DO Work Phone: Start: 09-29-2024 End: 62-71-5242Cwg routine ecg w/least 12 lds i&r onlyDavid Cruz DO Work Phone: Start: 86-07-4875GLR 12-LEADGeneric External Data ProviderStart: 40-36-0265REQ29Nifijkb External Data ProviderStart: 88-06-3324Qdh routine ecg w/least 12 lds w/i&rGeneric External Data ProviderStart: 09-24-2024 [facility] BACTERIA WND CULTGeneric External Data ProviderStart: 09-10-2024 End: 12-18-2024H/O: liver recipientS/P liver transplantMary Toney RNStart: 09-09-2024H/O: liver recipientStatus post liver transplantMamasha Vázquez RNStart: 73-13-8246KYI BACTERIA FLD CULTGeneric External Data ProviderStart: 09-08-2024 [facility] FLUABV+SARS-COV-2+RSV PNL RESP JESSICA+PROBEGeneric External Data ProviderStart: 64-74-2248Tiw routine ecg w/least 12 lds w/i&rGeneric External Data Provider Start: 88-80-5661EXO BACTERIA SPEC ANAEROBE CULTGeneric External Data Provider Start: 43-26-7042EFQO PATH BX REPORTGeneric External Data ProviderStart: 53-73-9354Jgt routine ecg w/least 12 lds w/i&rGeneric External Data Provider Start: 39-06-8272MYUX PATH BX REPORTGeneric External Data ProviderStart: 83-05-4822PubrdfjlnvyLshjrddh Bright RNStart: 63-91-1916Fru routine ecg w/least 12 lds w/i&rGeneric External Data ProviderStart: 68-00-7289OB PARACENTESIS (POC) DDI USE ONLYMira Black PA-C Work Phone: Start: 08-23-2024 End: 60-94-7966LQW BACTERIA BLD CULTGeneric External Data ProviderStart: 44-92-3573OP BIOPSY VERTEBRA OR FEMURGeneric External Data ProviderStart: 74-33-8603WZY CMP (CMP) (FOR REMOTE [facility] USE)Generic External Data ProviderStart: 83-58-5599ITA CMP (CMP) (FOR REMOTE [facility] USE)Generic External Data Provider Start: 60-86-4560BIQ CMP (CMP) (FOR REMOTE [facility] USE)Generic External Data ProviderStart: 86-98-4511Imfuw paracentesis dx/ther w/imaging guidanceDmitri Garg MD Work Phone: Start: 86-33-8121LC MANUAL DIFFLetitia E Littleton [employer]SAMPLE COLLECTOR Work Phone: start: 20-46-6738Zxik count misc body fluids w/differential countLetitia E Littleton [employer].SAMPLE COLLECTOR Work Phone: start: 16-62-2900ZQ PARACENTESIS (POC) DDI USE ONLY Elsy E Littleton [employer].SAMPLE COLLECTOR Work Phone: start: 13-09-7764Chiyiqmzbtgrrgm guided puncture and aspiration of abdomenDaniel Robledo II Work Phone: Start: 27-30-3438BGT CBC WITH AUTO DIFFGeneric External Data ProviderStart: 71-01-5097MQW CERVICAL SPINE WO/W IVCONGeneric External Data ProviderStart: 54-69-8856QGJ LUMBAR SPINE WO/W IVCONGeneric External Data ProviderStart: 85-02-2383Ljn spinal canal thoracic w/o & w/contr matrlShitess Garg MD Work Phone: Start: 79-36-9624HOH THORACIC SPINE WO/W IVCONGeneric External Data ProviderStart: 31-27-8301ZYB CMP (CMP) (FOR REMOTE [facility] USE)Generic External Data ProviderStart: 35-52-2505Tf pelvic nonobstetric image dcmtn limited/f/uSjigar Garg MD Work Phone: Start: 32-55-4892MC PELVIS LTDGeneric External Data ProviderStart: 39-68-4843Yslft paracentesis dx/ther w/imaging guidanceDmitri Garg MD Work Phone: [phone]: 25-49-8660TL MANUAL DIFFJessica Zangmeister [employer].SAMPLE COLLECTOR Work Phone: [phone]: 47-52-7144YGG BODY FLUID CELL COUNTGeneric External Data ProviderStart: 91-62-6673Vgfh count misc body fluids w/differential countJessica Zangmeister [employer].SAMPLE COLLECTOR Work Phone: Start: 69-89-0748VH PARACENTESIS (POC) DDI USE ONLY Kathy Zangmedianna [employer]SAMPLE COLLECTOR Work Phone: [phone]: 09-42-4613Qz diffusing capacityChrismelissa Bull MD Work Phone: Start: 05-30-2024 End: 92-24-4433Ugrjvaegxcpdw needle/cath pleura w/imagingThomas Shannon Penaloza MD Work Phone: Start: 88-84-9914Ddgmfanhg rspse spmtry pre&post- brncdilat admnChrjavier Bull MD Work Phone: Start: 91-38-6984Zrkkumfewl exam chest 2 views Brisa Bull MD Work Phone: Start: 90-45-1877SBN CBC WITH AUTO DIFFGeneric External Data ProviderStart: 99-75-2136Hobue paracentesis dx/ther w/imaging guidanceLee Ann Art MD Work Phone: Start: 70-99-7554Ipgszac serum plasma/whole bloodDonerin Benoit [employer].SAMPLE COLLECTOR Work Phone: Start: 64-13-0523SR MANUAL DIFFDonna Cy [employer].SAMPLE COLLECTOR Work Phone: Start: 21-71-4092Ptja count misc body fluids w/differential countDonna Cy [employer].SAMPLE COLLECTOR Work Phone: Start: 08-73-5287Zev bact xcpt urine blood/stool aerobic isolRosalinda Benoit [employer]SAMPLE COLLECTOR Work Phone: Start: 39-68-9660HJ PARACENTESIS (POC) DDI USE ONLY Rosalindaerin Benoit [employer].SAMPLE COLLECTOR Work Phone: Start: 57-08-8918Lk abdomen w/contrast materialSjigar Garg MD Work Phone: Start: 72-82-8465Uduclr w/vc expiratory edy w/wo mxml vol vntjSjigar Garg MD Work Phone: Start: 76-23-7802Uzkij 1995 panel - Serum or Plasma Pulm 8Start: 42-40-4268HA PARACENTESIS ABD W/IMAGEGeneric External Data Provider Start: 50-15-0178YJ PARACENTESIS ABD W/IMAGEGeneric External Data ProviderStart: 33-33-4472Uynkb 1995 panel - Serum or PlasmaLiver Coordinator Work Phone: Start: 96-92-1346KDX CBC WITH AUTO DIFFGeneric External Data ProviderStart: 83-16-7819Pdk abdomen w/o & w/contrast material Generic External Data ProviderStart: 62-40-1861HX PARACENTESIS ABD W/IMAGE Generic External Data ProviderStart: 47-29-3865Mfp bmtry prtl coher intrfrmtry io lens pwr calIra Mitchell Ward DO Work Phone: Start: 01-18-2024 End: 86-51-6353Xtmjm medical xm&eval compre new pt 1/> vstAge-related nuclear cataract of both eyesIra Mitchell Desiadriana DO Work Phone: comment on above:Age-related nuclear cataract of both eyes (Primary Dx)Start: 03-25-5567YO ABDOMEN 1VGeneric External Data Provider Start: 65-02-1437RZ PARACENTESIS ABD W/IMAGEGeneric External Data ProviderStart: 78-21-2065UPCQ AFP TUMOR MARKERGeneric External Data ProviderStart: 01-03-2024 SRMCOH PROTHROMBIN TIME INR W/O COUMGeneric External Data ProviderStart: 88-76-8868JC ECHO DOPPLER Cailin MALDONADO Work Phone: Start: 52-62-8160HXY CBC WITH AUTO DIFFGeneric External Data ProviderStart: 49-36-1078QRRZ AFP TUMOR MARKERGeneric External Data ProviderStart: 31-52-8301JRU CMP (CMP) (FOR REMOTE [facility] USE)Generic External Data ProviderStart: 67-85-2200AVJV FLUID CULTURE, STERILEGeneric External Data ProviderStart: 39-08-3268TUAP STAIN RESULTGeneric External Data ProviderStart: 31-47-1811IK PARACENTESIS ABD W/IMAGEGeneric External Data ProviderStart: 64-49-2798GX PARACENTESIS ABD W/IMAGEGeneric External Data ProviderStart: 26-20-4541IAL BASIC METABOLIC PANELGeneric External Data ProviderStart: 12-60-3508MZJ CBC WITH AUTO DIFFGeneric External Data ProviderStart: 10-23-2023 SRMCOH PROTHROMBIN TIME INR W/O COUMGeneric External Data ProviderStart: 12-36-7870TB PARACENTESIS ABD W/IMAGEGeneric External Data ProviderStart: 43-03-3210FQY, SUBCLASSES(1-4)Generic External Data ProviderStart: 53-08-7193DKT MISCELLANEOUS TESTGeneric External Data ProviderStart: 80-20-3123BDHT CT, SEROUS FLUIDGeneric External Data ProviderStart: 85-92-6386TNELBER, BODY FLUID Generic External Data ProviderStart: 35-40-4185UG HEAD/BRAIN WO Dimitrios Esparza MD Work Phone: Start: 39-30-0798Evsuriwm of lesion of anusII Sanjay Robledo Work Phone: Start: 53-73-9013Tlgsjbtvem manometryII Sanjay Robledo Work Phone: Start: 97-73-9937Mneptwwgcepl gastric emptying studyII Sanjay Robledo Work Phone: Start: 88-22-1835Cwbdrcwcnisqyvz of liverII Sanjay Robledo Work Phone: Start: 56-26-8466Enuemefyze elastography of liverII Sanjay Robledo Work Phone: Start: 41-21-0100XjcbrkadskadqizcqcebgpybwyIS Sanjay Robledo Work Phone: Start: 94-30-0918WrcpdyqezrhAinfcfz Itzkowitz DO Work Phone: Start: 71-65-8069MlehhthbwzhQpibthg ProviderStart: 93-70-7703RgqqafhjogzHogsk Coordinator Work Phone: Plan of Treatment DateCare ActivityDetailAuthorStart: 16-64-6782Xgseawuux for malignant neoplasm of colonNOMS HealthcareStart: 28-23-7978Ptucvftlt for malignant neoplasm of colonNOMS HealthcareStart: 86-86-4023Rlcqo microalbumin profileDTaP,Tdap,Td Vaccine (2 - Td or Tdap)[facility]: 45-52-0364Behxn panelLipid ScreeningShelby Memorial Hospitaltart: 77-75-5819Dmmsntumg for malignant neoplasm of colonSigmoidoscopyNOMS HealthcareStart: 58-49-7426Ahcyuthyw for malignant neoplasm of colonShelby Memorial Hospitaltart: 15-42-1102Qulbieeol for malignant neoplasm of colonNOMS HealthcareStart: 38-94-5054Qmwgi panelLipid Screening [facility] Hospitaltart: 47-84-8001Cleks panelLipid ScreeningParkwood Hospital Start: 35-13-1331PKD Vaccine (1 - 1-dose 75+ series)RSV Vaccine (1 - 1-dose 75+ series)[facility]art: 04-28-8374Codxqpqx ScreeningDiabetes Screening [facility] Hospitaltart: 65-94-4168Dculdgbw ScreeningDiabetes ScreeningShelby Memorial Hospitaltart: 54-98-1595Rvtsdejv ScreeningDiabetes ScreeningParkwood Hospital Start: 18-78-2301Bjpbczis ScreeningDiabetes ScreeningShelby Memorial Hospitaltart: 59-63-8746Eyctzzbq ScreeningDiabetes ScreeningShelby Memorial Hospitaltart: 11-16-2027 Diabetes ScreeningDiabetes ScreeningShelby Memorial Hospitaltart: 90-92-2029Hdesiboq ScreeningDiabetes ScreeningShelby Memorial Hospitaltart: 63-22-8931Wxgnmvjo Screening Diabetes ScreeningShelby Memorial Hospitaltart: 53-17-4333Fnithuff ScreeningDiabetes ScreeningShelby Memorial Hospitaltart: 33-97-0931Lazgswqm ScreeningDiabetes Screening [facility]tart: 93-87-5345Iqhanlgu ScreeningDiabetes ScreeningShelby Memorial Hospitaltart: 67-27-2016Vfhegmrn ScreeningDiabetes ScreeningParkwood Hospital Start: 88-30-9392Njvqpkmm ScreeningDiabetes ScreeningShelby Memorial Hospitaltart: 53-17-9236Qtawomgi ScreeningDiabetes ScreeningShelby Memorial Hospitaltart: 10-10-2027 Diabetes ScreeningDiabetes ScreeningShelby Memorial Hospitaltart: 30-72-1261Kbzazoha ScreeningDiabetes ScreeningShelby Memorial Hospitaltart: 88-30-5011Yeyxbdwl Screening Diabetes ScreeningShelby Memorial Hospitaltart: 84-32-0216Fnisyxsj ScreeningDiabetes ScreeningShelby Memorial Hospitaltart: 82-07-0835Rsvqmmni ScreeningDiabetes Screening [facility]tart: 65-03-6226Wwsjlmkb ScreeningDiabetes ScreeningShelby Memorial Hospitaltart: 13-83-3940Njwzyryx ScreeningDiabetes ScreeningParkwood Hospital Start: 59-76-8054Hwxabflu ScreeningDiabetes ScreeningShelby Memorial Hospitaltart: 99-97-8573Ktiruvxu ScreeningDiabetes ScreeningShelby Memorial Hospitaltart: 08-28-2027 Diabetes ScreeningDiabetes ScreeningShelby Memorial Hospitaltart: 38-28-6370Cpunraiz ScreeningDiabetes ScreeningShelby Memorial Hospitaltart: 48-37-0009Syfesbbd Screening Diabetes ScreeningShelby Memorial Hospitaltart: 44-44-9431Bysglcvn ScreeningDiabetes ScreeningShelby Memorial Hospitaltart: 70-47-9608Wgwymkdl ScreeningDiabetes Screening [facility]tart: 88-88-9281Qxtgtxuw ScreeningDiabetes ScreeningShelby Memorial Hospitaltart: 39-55-5457Glpsytur ScreeningDiabetes ScreeningParkwood Hospital Start: 12-90-8751Aqquctjp screeningDiabetes: Retinopathy ScreeningSelect Specialty HospitalStart: 71-64-3334Ezuqwwdpoj measurementSerum CreatinineAmarillo ClinicStart: 68-08-4640Evpyjqmuzj measurementSerum CreatinineParkwood Hospital Start: 56-51-1836Boswmjiplw measurementSerum CreatinineShelby Memorial Hospitaltart: 72-83-8956Ojpxapob blood countHemoglobin/HematocritAmarillo ClinicStart: 76-71-4039Uzckjtzahh measurementSerum CreatinineShelby Memorial Hospitaltart: 84-07-1128Ilpullmj blood countHemoglobin/HematocritAmarillo ClinicStart: 56-62-0347Xhbxnubodl measurementSerum CreatinineShelby Memorial Hospitaltart: 82-63-3729Zejdeualhp measurementSerum CreatinineShelby Memorial Hospitaltart: 74-47-9986Gdjmorbb blood countHemoglobin/HematocritShelby Memorial Hospitaltart: 87-43-1505Dziepebyuu measurementSerum CreatinineShelby Memorial Hospitaltart: 72-36-2216Idkjhjcz blood countHemoglobin/HematocritShelby Memorial Hospitaltart: 36-15-4688Cpsmnzbsum measurementSerum CreatinineShelby Memorial Hospitaltart: 07-62-4841Jmhaytbq blood countHemoglobin/HematocritAmarillo ClinicStart: 70-94-3757Jgxflyjgej measurementSerum CreatinineShelby Memorial Hospitaltart: 04-17-3379Ovjdulzvxr measurementSerum CreatinineShelby Memorial Hospitaltart: 04-84-6291Hznwxmnusk measurementSerum CreatinineShelby Memorial Hospitaltart: 19-35-2391Ohlygqedkw measurementSerum CreatinineShelby Memorial Hospitaltart: 81-78-8208Jtpmyanrov measurementSerum CreatinineShelby Memorial Hospitaltart: 34-52-1262Uryxpljbye measurementSerum CreatinineShelby Memorial Hospitaltart: 68-33-9625Kgyxujsryx measurementSerum CreatinineShelby Memorial Hospitaltart: 48-37-0784Sqgchzwu blood countHemoglobin/HematocritAmarillo ClinicStart: 98-21-1849Impmqdhwkr measurementSerum CreatinineCleCity Hospitaltart: 24-97-7670Qairtiou blood countHemoglobin/HematocritShelby Memorial Hospitaltart: 43-49-0196Djuohmkpem measurementSerum CreatinineShelby Memorial Hospitaltart: 47-47-1848Wlbbmtqynl measurementSerum CreatinineShelby Memorial Hospitaltart: 40-53-0023Awiugwimzh measurementSerum CreatinineShelby Memorial Hospitaltart: 40-33-5743Fwlywafa blood countHemoglobin/HematocritShelby Memorial Hospitaltart: 91-60-4110Ugoiaeetei measurementSerum CreatinineShelby Memorial Hospitaltart: 13-04-4217Afrulxce blood countHemoglobin/HematocritShelby Memorial Hospitaltart: 09-55-8493Cuifxskjdz measurementSerum CreatinineShelby Memorial Hospitaltart: 23-02-3062Rsevhhdh blood countHemoglobin/HematocritShelby Memorial Hospitaltart: 09-28-5555Sgrcejuhwy measurementSerum CreatinineShelby Memorial Hospitaltart: 14-32-0615Iijbjbhayo measurementSerum CreatinineShelby Memorial Hospitaltart: 37-79-5378Xakgbzkcrp measurementSerum CreatinineShelby Memorial Hospitaltart: 72-98-3023Argjeqbyqh measurementSerum CreatinineShelby Memorial Hospitaltart: 95-58-8499Qyvvjdcp blood countHemoglobin/HematocritShelby Memorial Hospitaltart: 40-55-7353Cilobxgxzf measurementSerum [facility] Limatart: 29-12-4775PV Controlled (<130/80)BP Controlled (<130/80)[facility]tart: 31-29-1821MN Controlled (<130/80)BP Controlled (<130/80)[facility]rt: 36-95-6798QQ Controlled (<130/80)BP Controlled (<130/80)[facility]tart: 91-87-7017TJ Controlled (<130/80)BP Controlled (<130/80)[facility]: 37-66-6602DW Controlled (<130/80)BP Controlled (<130/80)[facility]: 18-39-1531BZ Controlled (<130/80)BP Controlled (<130/80)[facility]tart: 97-27-0673Ssuavjpfp A Vaccine (2 of 2 - Risk 2-dose series)Hepatitis A Vaccine (2 of 2 - Risk 2-dose series)[facility]tart: 78-91-5868Dhfhoagkv A Vaccines (2 of 2 - Risk 2-dose series)Hepatitis A Vaccines (2 of 2 - Risk 2-dose series)[facility] HospitalStart: 02-10-2025 End: 85-87-9733Mtvyvvj encounter aciltxmqb37/27/2025 11:00 AM EDT Appointment Gastroenterology [address] [address] Jane Correia MD [address] [place] [address] Schedule in about 3 months to remove biliary stent GastroenterologyComment on above:Schedule in about 3 months to remove biliary stentStart: 02-03-2025 End: 29-33-3644prlvfsblct96/20/2025 9:00 AM EDT [facility] Neurology [address] [place] [address] Devyn Roach MD [address] [place] [address] Vertigo [R42] NeurologyComment on above:Vertigo [R42]Start: 07-24-5051Yqwriyoyu A Vaccine (3 of 3 - Hep A Twinrix risk 3-dose series)Hepatitis A Vaccine (3 of 3 - Hep A Twinrix risk 3-dose series)[facility] Hospitaltart: 01-08-2025 End: 99-18-0729Lckigsl encounter /24/2025 8:00 AM EDT Office Visit Gastroenterology [address] [place] [id number] [place] [address] [address] [place] [address] hospital discharge follow upGastroenterologyComment on above:hospital discharge follow upStart: 47-23-8431Insrv screening for proteinDiabetes: Urine Protein ScreeningNOIL HealthcareStart: 08-66-8442Ommrbcyzl vaccinationInfluenza Vaccine (#1)[facility] HealthcareStart: 12-02-2024 End: 05-09-9501Irsoxq Only12/02/2024 Orders Only Transplant Center [address] [address] Carina Ziegler, RN [facility] [address] [place] [address] Disorder of liver; Liver replaced by transplant (HCC)Transplant CenterComment on above:Disorder of liver; Liver replaced by transplant (HCC)Start: 62-52-7710Euwribcnpn hospital visit by nmjlvoors37/07/2025 5:40 PM EDT Hospital Encounter MRI Q [address] [address] Compression fracture of cervical spine, non- traumatic, with delayed healing, subsequent encounter [M48.52XG]MRI QComment on above:Compression fracture of cervical spine, non-traumatic, with delayed healing, subsequent encounter [M48.52XG]Start: 11-21-2024 End: 96-75-9099Ygnflti encounter procedureTransplant CenterComment on above:OK PER MOLLYCompression fracture of cervical spine, non-traumatic, with delayed healing, subsequent encounter [M48.52XG]Start: 11-20-2024 End: 85-69-2332XM Cervical spine WO and W contrast IVMRI CERVICAL SPINE WO/W IVCON Radiology ADRIANNE Compression fracture of cervical spine, non-traumatic,with delayed healing, subsequent encounter Expected: 11/20/2024, Expires: 12/12/2025 [facility] Work Phone: Comment on above:Expected: 11/20/2024, Expires: 12/12/2025Start: 11-20-2024 End: 80-38-4581QI Lumbar spine WO and W contrast IVMRI LUMBAR SPINE WO/W IVCON Radiology Routine Compression fracture of cervical spine, non-traumatic, with delayed healing, subsequent encounter Expected: 11/20/2024, Expires: 12/12/2025 [facility] HospitalComment on above:Expected: 11/20/2024, Expires: 12/12/2025Start: 11-20-2024 End: 04-97-4747DG Thoracic spine WO and W contrast IVMRI THORACIC SPINE WO/W IVCON Radiology ADRIANNE Compression fracture of cervical spine, non-traumatic,with delayed healing, subsequent encounter Expected: 11/20/2024, Expires: 12/12/2025 [facility] HospitalComment on above:Expected: 11/20/2024, Expires: 12/12/2025Start: 00-79-4455WhfcwChillicothe VA Medical Centertart: 11-19-2024 Bacteria identified in Urine by CultureUrine CultureGrant Hospitaltart: 11-14-2024 End: 50-87-3217gfzpisumjd09/31/2025 2:30 PM EDT [facility] Infectious Disease [address] [place] [id number] Jennie iNcholson MD [address] [place] [address] VRE infected bile leakInfectious DiseaseComment on above:VRE infected bile leak Start: 11-14-2024 End: 41-54-8433Enkpebc encounter jhnsbybgl00/31/2025 2:30 PM EDT Office Visit Infectious Disease [address] [id number] Jennie Nicholson MD [address] [place] [address] VRE infected bile leakInfectious DiseaseComment on above:VRE infected bile leakStart: 11-13-2024 End: 78-57-8428Tkueevg encounter procedureGastroenterologyComment on above: 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, 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]Start: 10-31-2024 End: 47-81-5868Xpbmegm OnlyCardiologyComment on above:Pleural effusion associated with hepatic disorder [K76.9, J91.8]Start: 47-49-6543Hrcetbisf A Vaccine (2 of 2 - Risk 2-dose series)Hepatitis A Vaccine (2 of 2 - Risk 2-dose series)[facility]tart: 29-85-8770Sfljj screening for proteinDiabetes: Urine Protein ScreeningSelect Specialty HospitalStart: 09-15-2024 End: 16-65-4599VL Cervical spine WO and W contrast IVMRI CERVICAL SPINE WO/W IVCON Radiology Routine Abnormal bone scan of thoracic spine Expected: 09/15, Expires: 09/21/2025[facility] Work Phone: Comment on above:Expected: 09/15/2024, Expires: 09/21/2025Start: 09-15-2024 End: 10-59-1758YC Lumbar spine WO and W contrast IVMRI LUMBAR SPINE WO/W IVCON Radiology Routine Abnormal bone scan of thoracic spine Expected: 09/15/2024, Expires: 09/21/2025[facility] ClinicComment on above:Expected: 09/15/2024, Expires: 09/21/2025Start: 09-15-2024 End: 81-79-9924OV Thoracic spine WO and W contrast IVMRI THORACIC SPINE WO/W IVCON Radiology Routine Abnormal bone scan of thoracic spine Expected: 09/15, Expires: 09/21/2025[facility] ClinicComment on above:Expected: 09/15/2024, Expires: 09/21/2025Start: 09-05-2024 End: 61-16-8702vtyijuozji30/22/2025 8:30 AM EDT [facility] Gastroenterology [address] [address] Dmitri Garg MD [address] [place] [address] Post spine bx, closed txp eval as of nowGastroenterologyComment on above:Post spine bx, closed txp eval as of nowStart: 09-05-2024 End: 45-45-5435Hjzmph-up cihuczghs55/22/2025 8:30 AM EDT [facility] Gastroenterology [address] [address] Dmitri Garg MD [address] [facility] [place] [address] OLT txp eval /hospital follow upGastroenterologyComment on above:OLT txp eval /hospital follow upStart: 08-29-2024 End: 64-41-1584Ouyvtez encounter pfkpygyon97/15/2025 11:00 AM EDT Office Visit Gastroenterology [address] [address] Dmitri Garg MD [address] [place] [address] f/u post closed txp eval and new mriGastroenterologyComment on above:f/u post closed txp eval and new mriStart: 08-27-2024 End: 28-21-7204Ylswwfb encounter otftydsuc82/13/2025 12:30 PM EDT Appointment Gastroenterology [address] [place] [id number] Dmitri Garg MD [address] [place] [address] EGD/EUS & COLONOSCOPYGastroenterologyComment on above:EGD/EUS & COLONOSCOPY Start: 08-19-2024 End: 76-00-9537Lfmiiojtapwv/Creatinine panel in random UrineMicroalbumin / creatinine, urine ratio Lab Routine Type 2 diabetes mellitus with hyperglycemia, without long-term current use of insulin ([facility]) Expected: 08/19/2024 (Approximate), Expires: 08/19/2025[facility] Work Phone: Comment on above:Expected: 08/19/2024 (Approximate), Expires: 08/19/2025Start: 08-19-2024 End: 75-30-0032Elaqxbttq colonoscopyCOLONOSCOPY SCREENING Endoscopy Routine Encounter for screening colonoscopy Expected: 08/19/2024, Expires: 08/12/2025 [facility] Work Phone: Comment on above:Expected: 08/19/2024, Expires: 08/12/2025Start: 08-19-2024 End: 16-24-8180Mmvynpb encounter jooahymch09/05/2025 11:00 AM EDT Office Visit [facility] [address] [place] [id number] Xuan Espino PA [address] [place] [address] ArrivedNOMS CI FMComment on above:ArrivedStart: 08-15-2024 End: 72-58-3876TF Liver WO and W contrast IVMRI LIVER WO/W IVCON Radiology Routine Liver mass Expected: 08/15/2024, Expires: 06/17/2025[facility] Work Phone: Comment on above:Expected: 08/15/2024, Expires: 06/17/2025Start: 08-15-2024 End: 00-86-7051Mzrtrto encounter ntjfwqbla17/01/2025 11:50 AM EDT Appointment MRI Q [address] [address] Liver mass [R16.0]MRI Q Comment on above:Liver mass [R16.0]Start: 08-14-2024 End: 92-24-2448PAM - THERAPEUTIC, EUS, OR TUBE INTERVENTIONSEGD - THERAPEUTIC, EUS, OR TUBE INTERVENTIONS Endoscopy Routine Cirrhosis of liver without ascites, unspecified hepatic cirrhosis type (HCC) Expected: 08/14/2024, Expires: 08/07/2025[facility] HospitalComment on above:Expected: 08/14/2024, Expires: 08/07/2025Start: 33-17-5216Wdqurmfpb for malignant neoplasm of colonShelby Memorial Hospitaltart: 80-98-3816YynuvmzbsGrant Hospitaltart: 07-30-2024 Ultrasonography guided puncture and aspiration of abdomenGrant Hospitaltart: 72-26-7589Ufxqlllero A1c measurementDiabetes: Hemoglobin B3PVKJBSelect Specialty HospitalStart: 07-25-2024 End: 42-50-2285Cdbhejd encounter procedureGastroenterologyComment on above:f/u post closed txp eval and new mriMetastatic hepatocellular carcinoma to bone Start: 07-05-2024 End: 99-99-8030Hzcdpoh encounter cacthyugc42/21/2025 6:30 PM EDT Appointment MRI Q [address] [address] Dx: Pathological fracture, other site, initial encounter for fracture [M84.48XA]MRI QComment on above:Dx: Pathological fracture, other site, initial encounter for fracture [M84.48XA] Start: 23-78-5492Smhaecvzyo hospital visit by nitwllaal76/ 6:30 PM EDT Hospital Encounter MRI Q [address] [address] P athological fracture, other site, initial encounter for fracture [M84.48XA]MRI Q Comment on above:Pathological fracture, other site, initial encounter for fracture [M84.48XA]Start: 07-05-2024 End: 17-77-9923Atjjinhvn to same day surgery ikvfyq9107/05/2024 3:30 PM EDT - 07/05/2024 4:30 PM EDT Surgery Admitting [address] [address] Morales Gregg MD [address] [place] [address] THORACENTESIS NEEDLE OR CATHETER ASPIRATION OF THE PLEURAL SPACE W IMAGING GUIDANCEAdmittingComment on above:THORACENTESIS NEEDLE OR CATHETER ASPIRATION OF THE PLEURAL SPACE W IMAGING GUIDANCEStart: 07-05-2024 Subsequent hospital visit by dmquyymlc42/21/2025 3:30 PM EDT Hospital Encounter Admitting [address] [address] Morales Gregg MD [address] [place] [address] Pleural e ffusion [J90]AdmittingComment on above:Pleural effusion [J90]Start: 07-05-2024 End: 03-88-6559Ecxkllfghiftn needle/cath pleura w/imagingTHORACENTESIS NEEDLE OR CATHETER ASPIRATION OF THE PLEURAL SPACE W IMAGING GUIDANCE Pleural effusion 07/05/2024 3:30 PM EDTMC PULM LAB I71Zxjon: 07-05-2024 End: 30-85-6696Eafnymf encounter procedureGastroenterologyComment on above:Dx: Other ascites [R18.8]Start: 07-04-2024 End: 18-22-2855Cofnlgb encounter wkfvnepst02/20/2025 9:00 AM EDT Appointment Gastroenterology [address] [address] Dx: Other ascites [R18.8]GastroenterologyComment on above:Dx: Other ascites [R18.8] Start: 94-78-7499CuruqwpucGrant Hospitaltart: 06-19-2024 Ultrasonography guided puncture and aspiration of abdomenGrant Hospitaltart: 06-08-2024 End: 69-98-1035Zxgoxnq encounter procedureMRI QComment on above:Low back pain, unspecified back pain laterality, unspecified chronicity, unspecified whether sciatica present [M54.50]Start: 66-31-2287Iuejgsmzth hospital visit by physician 06/08/2024 1:00 PM EST Hospital Encounter MRI Q [address] [address] Low back pain, unspecified back pain laterality, unspecified chronicity, unspecified whether sciatica present [M54.50]MRI QComment on above: Low back pain, unspecified back pain laterality, unspecified chronicity, unspecified whether sciatica present [M54.50]Start: 06-04-2024 End: 00-20-5499Pdjtqrs encounter nfgqwibsz12/18/2025 11:15 AM EST Appointment Radiology [address] [place] [address] US PELVIS LTD; EVAL FOR RT INGUINAL HERNIARadiologyComment on above:US PELVIS LTD; EVAL FOR RT INGUINAL HERNIAStart: 05-31-2024 End: 67-10-5757Mdyqrybgt to same day surgery [facility] Cath LabComment on above:CORONARY ANGIO W CATH PLACE W IMAGE INJECT & INTERP W LT HEART CATH W INJECT LT VENTRGRAPHYStart: 05-31-2024 End: 12-77-9092Dcgp plmt l hrt & arts w/njx & angio img s&iMC CATH LABStart: 35-86-7849Xqsfaloben hospital visit by physicianMAG[facility]ER [facility] Cath LabComment on above:DIAGNOSTIC LHC ONLY (NO PLANS FOR PCI), Dx: Pleural effusion associated with hepatic disorder [K76.9, J91.8 (ICD-10-CM)]; Shortness of breath [R06.02 (ICD-10-CM)]; Lesion of liver greater than 1 cm in diameter [K76.9 (ICD-10-CM)]; Alcoholic cirrhosis of liver with ascites (HCC) [K70.31, (ICD-10-CM)]; Liver transplant candidate [Z76.82 (ICD-10-CM)]; Metabolic dysfunction-associated steatotic liverdisease (MASLD) [K76.0 (ICD-10-CM)], REF. YARELYY DR. ARAMBULAIStart: 05-31-2024 End: 69-47-6577Xswbedghx to same day surgery zlepik3105/31/2024 12:45 PM EST - 05/31/2024 1:38 PM EST Surgery [facility] First Aid Teacher [address] [place] [address] Bhavya Aldana MD [address] [place] [address] C[address] W IMAGE INJECT & INTERP W LT HEART CATH W INJECT LT VENTRGRAPHYHOSP Cath LabComment on above:CORONARY ANGIO W CATH PLACE W IMAGE INJECT & INTERP W LT HEART CATH W INJECT LT VENTRGRAPHYStart: 05-31-2024 End: 99-70-7391Lyuy plmt l hrt & arts w/njx & angio img s&iCORONARY ANGIO W CATH PLACE W IMAGE INJECT & INTERP W LT HEART CATH W INJECT LT VENTRGRAPHY Pleural effusion 05/31/2024 12:45 PM [facility] CATH LABStart: 54-58-1855Ucktbymopv hospital visit by jnwvobrfp25/14/2025 12:45 PM [facility] Hospital Encounter HOSP First Aid Teacher [address] [place] [address] Bhavya Aldana MD [address] [place] [address] DIAGNOSTIC LHC ONLY (NO PLANS FOR PCI), Dx: Pleural effusion associated with hepatic disorder [K76.9, J91.8 (ICD-10-CM)]; Shortness of breath [R06.02 (ICD-10-CM)]; Lesion of liver greater than 1 cm in diameter [K76.9 (ICD-10-CM)]; Alcoholic cirrhosis of liver with ascites (HCC) [K70.31, (ICD-10-CM)]; Liver transplant candidate [Z76.82 (ICD-10-CM)]; Metabolic dysfunction-associated steatotic liver disease (MASLD) [K76.0 (ICD-10-CM)], REF. GLORIA CULLEN Cath LabComment on above: DIAGNOSTIC LHC ONLY (NO PLANS FOR PCI), Dx: Pleural effusion associated with hepatic disorder [K76.9, J91.8 (ICD-10-CM)]; Shortness of breath [R06.02 (ICD-10-CM)]; Lesion of liver greater than 1 cm in diameter [K76.9 (ICD-10-CM)]; Alcoholic cirrhosis of liver with ascites (HCC) [K70.31, (ICD-10-CM)]; Liver transplant candidate [Z76.82 (ICD-10-CM)]; Metabolic dysfunction-associated steatotic liverdisease (MASLD) [K76.0 (ICD-10-CM)], REF. GLORIA ARAMBULAIStart: 05-31-2024 End: 41-36-3519qbjkidnnyz98/14/2025 11:30 AM EST Procedure Cardiology [address] [place] [address] Bhavya Aldana MD [address] [place] [address] DIAGNOSTICLHC ONLY (NO PLANS FOR PCI)CardiologyComment on above:DIAGNOSTIC LHC ONLY (NO PLANS FOR PCI)Start: 05-31-2024 End: 20-45-4386Alwdwkz encounter procedureGastroenterologyComment on above:Other ascites [R18.8]Please send for cell count and total protein. Administer 25% albumin, 6 grams/L of ascitic fluid removed.Pleural effusion associated with hepatic disorder [K76.9, J91.8]RS// Pleural effusion associated with hepatic disorder [K76.9, J91.8]ADMITUnilateral inguinal hernia without obstruction or gangrene, recurrence not specified [K40.90]Start: 05-30-2024 End: 28-18-8847Scvbqguakmaok needle/cath pleura w/imaging PULM LAB F68Bxzzl: 78-91-2977Dbnyvtptc B Vaccine (2 of 2 - CpG risk 2-dose series)Hepatitis B Vaccine (2 of 2 - CpG risk 2-dose series)[facility]tart: 26-86-0757Jiskw screening for proteinDiabetes: Urine Protein ScreeningCASTLEVIEW HOSPITAL HealthcareStart: 77-57-3965Lzxlnfga screeningDiabetes: Retinopathy ScreeningNOIL HealthcareStart: 05-23-2024 End: 16-62-0291Rufokgq encounter procedureRadiologyComment on above:Pleural effusion associated with hepatic disorder [K76.9, J91.8]Start: 05-23-2024 End: 02-12-7915wkflifzcvr57/06/2025 10:15 AM EST Results Only [place] [address] [address] [place], [place] [id number] Liver transplant candidate [Z76.82][place] [address] Draw StationComment on above:Liver transplant candidate [Z76.82]Start: 05-21-2024 End: 94-56-4255Qsili metabolic 2000 panel - Serum or PlasmaBASIC METABOLIC PANEL Lab Routine Primary hypertension Expected: 05/21/2024, Expires: 08/20/2024 [facility] HospitalComment on above:Expected: 05/21/2024, Expires: 08/20/2024Start: 05-21-2024 End: 87-15-3929HNO panel - Blood by Automated countCOMPLETE BLOOD COUNT Lab Routine Primary hypertension Expected: 05/21/2024, Expires: 08/20/2024[facility] Work Phone: Comment on above:Expected: 05/21/2024, Expires: 08/20/2024Start: 05-21-2024 End: 97-53-7155ZL panel - Platelet poor plasma by Coagulation assayPROTHROMBIN TIME Lab Routine Primary hypertension Expected: 05/21/2024, Expires: 08/20/2024 [facility] HospitalComment on above:Expected: 05/21/2024, Expires: 08/20/2024Start: 05-20-2024 End: 29-02-4836Bwhzo-1-Fetoprotein [Mass/volume] in Serum or PlasmaALPHA FETOPROTEIN Lab STAT Liver transplant candidate Expected: 05/20/2024, Expires: 08/19/2024[facility] Work Phone: Comment on above:Expected: 05/20/2024, Expires: 08/19/2024Start: 05-16-2024 End: 13-79-5980Fjxirco encounter procedureNOMS CI FMComment on above:Arrived Start: 05-14-2024 End: 21-17-4892TBR panel - Blood by Automated countCOMPLETE BLOOD COUNT Lab Routine Cirrhosis of liver without ascites, unspecified hepatic cirrhosis type (HCC) Expected: 05/14/2024, Expires: 08/13/2024[facility] Work Phone: Comment on above:Expected: 05/14/2024, Expires: 08/13/2024Start: 05-14-2024 End: 12-56-6580Ziqopvtggqzoh metabolic 2000 panel - Serum or PlasmaCOMPREHENSIVE METABOLIC PANEL Lab Routine Cirrhosis of liver without ascites, unspecified hepatic cirrhosis type (HCC) Expected: 05/14/2024, Expires: 08/13/2024[facility] HospitalComment on above:Expected: 05/14/2024, Expires: 08/13/2024Start: 05-06-2024 End: 66-92-4694Bxilwigkgfhuq metabolic 2000 panel - Serum or PlasmaCOMPREHENSIVE METABOLIC PANEL Lab Routine Liver transplant candidate Expected: 05/06/2024, Expires:08/05/2024[facility] Work Phone: Comment on above:Expected: 05/06/2024, Expires: 08/05/2024Start: 05-02-2024 End: 76-34-9929Lstnj metabolic 2000 panel - Serum or PlasmaBASIC METABOLIC PANEL Lab Routine Pleural effusion associated with hepatic disorder Shortness of carter ath Lesion of liver greater than 1 cm in diameter Alcoholic cirrhosis of liver with ascites (HCC) Liver transplant candidate Metabolic dysfunction-associated steatotic liver disease (MASLD) Expected:05/02/2024, Expires: 08/01/2024 [facility] HospitalComment on above:Expected: 05/02/2024, Expires: 08/01/2024Start: 05-02-2024 End: 37-39-2230NJA panel - Blood by Automated countCOMPLETE BLOOD COUNT Lab Routine Pleural effusion associated with hepatic disorder Shortness of breath Lesion of liver greater than 1 cm in diameter Alcoholic cirrhosis of liver with ascites (HCC) Liver transplant candidate Metabolic dysfunction-associated steatotic liver disease (MASLD) Expected: 05/02/2024, Expires: 08/01/2024 [facility] Work Phone: Comment on above:Expected: 05/02/2024, Expires: 08/01/2024Start: 05-02-2024 End: 81-21-3994WW panel - Platelet poor plasma by Coagulation assayPROTHROMBIN TIME Lab Routine Pleural effusion associated with hepatic disorder Shortness of breath Lesion of liver greater than 1 cm in diameter Alcoholic cirrhosis of liver with ascites (HCC) Liver transplant candidate Metabolic dysfunction- associated steatotic liver disease (MASLD) Expected: 05/02/2024, Expires: 08/01/2024[facility] ClinicComment on above:Expected: 05/02/2024, Expires: 08/01/2024Start: 05-02-2024 End: 99-98-0676Mmfhyyw encounter procedureCardiologyComment on above:Diagnosis: Pleural effusion associated with hepatic disorder [K76.9, J91.8]PRE LIVER TRANSPLANT EVALStart: 05-01-2024 End: 34-43-7541Dhmlqoyyx to same day surgery gjjuxi2605/01/2024 12:30 PM EST - 05/01/2024 1:30 PM EST Surgery Admitting [address] [address] Nilay Villatoro MD [address] [place] [address] THORACENTESIS NEEDLE OR CATHETER ASPIRATION OF THE PLEURAL SPACE W IMAGING GUIDANCEAdmittingComment on above:THORACENTESIS NEEDLE OR CATHETER ASPIRATION OF THE PLEURAL SPACE W IMAGING GUIDANCEStart: 05-01-2024 Subsequent hospital visit by iiodveluc72/15/2025 12:30 PM EST Hospital Encounter Admitting [address] [address] Nilay Villatoro MD [address] [place] [address] Pleural e ffusion [J90]AdmittingComment on above:Pleural effusion [J90]Start: 05-01-2024 End: 57-54-5763Fnqliutsnljru needle/cath pleura w/imaging PULM LAB D61Wkyke: 05-01-2024 End: 65-97-6306Owydejs encounter procedureCardiologyComment on above:Lesion of liver greater than 1 cm in diameter [K76.9]LIVER TRANSPLANT EVALUATIONShortness of breath [R06.02]Start: 04-30-2024 End: 53-05-6013Bbfveof encounter procedureTransplant CenterComment on above: LIVER TRANSPLANT EVALUATIONStart: 04-29-2024 End: 78-83-6394Oafllgw encounter procedureTransplant CenterComment on above: LIVER TRANSPLANT EVALUATIONPleural effusion associated with hepatic disorder; Shortness of breath; Lesion of liver greater than 1 cm in diameter; Encounter for screening for malignant neoplasm of prostate; Alcoholic cirrhosis of liver with ascites (HCC); Liver transplant candidate; Metabolic dysfunction-associated steatotic liver disease (MASLD)Start: 04-29-2024 End: 173085-lrbvkijqvinkoz D3 [Mass/volume] in Serum or PlasmaVITAMIN D 25 HYDROXY Lab Routine Lesion of liver greater than 1 cm in diameter Alcoholic cirrhosis of liver with ascites (HCC) Liver transplant candidate Metabolic dysfunction-associated steatotic liver disease (MASLD) Expected: 04/29/2024, Expires: 07/29/2024[facility] ClinicComment on above:Expected: 04/29/2024, Expires: 07/29/2024Start: 04-29-2024 End: 23-41-4486EOMMK 1 ANTITRYPSIN PHENOTYPEALPHA 1 ANTITRYPSIN PHENOTYPE Lab Routine Lesion of liver greater than 1 cm in diameter Alcoholic cirrhosis of liver with ascites (HCC) Liver transplant candidate Metabolic dysfunction- associated steatotic liver disease (MASLD) Expected: 04/29/2024, Expires: 07/29/2024[facility] ClinicComment on above:Expected: 04/29/2024, Expires: 07/29/2024Start: 04-29-2024 End: 33-97-5385Uapwd tocopherol [Mass/volume] in Serum or PlasmaVITAMIN E/TOCOPHEROL Lab Routine Lesion of liver greater than 1 cm in diameter Alcoholic cirrhosis of liver with ascites (HCC) Liver transplant candidate Metabolic dysfunction-associated steatotic liver disease (MASLD) Expected: 04/29/2024, Expires: 07/29/2024[facility] ClinicComment on above:Expected: 04/29/2024, Expires: 07/29/2024Start: 04-29-2024 End: 47-73-3651Wxeas-1-Fetoprotein [Mass/volume] in Serum or PlasmaALPHA FETOPROTEIN Lab Routine Lesion of liver greater than 1 cm in diameter Alcoholic cirrhosis of liver with ascites (HCC) Liver transplant candidate Metabolic dysfunction-associated steatotic liverdisease (MASLD) Expected: 04/29/2024, Expires: 07/29/2024[facility] ClinicComment on above:Expected: 04/29/2024, Expires: 07/29/2024Start: 04-29-2024 End: 77-35-0805kVLS in Platelet poor plasma by Coagulation assayACTIVATED PARTIAL THROMBOPLASTIN TIME Lab Routine Lesion of liver greater than 1 cm in diameter Alcoholic cirrhosis of liver with ascites (HCC) Liver transplant candidate Metabolic dysfunction-associated steatotic liver disease (MASLD) Expected: 04/29/2024, Expires: 07/29/2024[facility] ClinicComment on above: Expected: 04/29/2024, Expires: 07/29/2024Start: 04-29-2024 End: 78-11-1762Fuzei metabolic 2000 panel - Serum or PlasmaBASIC METABOLIC PANEL Lab Routine Lesion of liver greater than 1 cm in diameter Alcoholic cirrhosisof liver with ascites (HCC) Liver transplant candidate Metabolic dysfunction- associated steatotic liver disease (MASLD) Expected: 04/29/2024, Expires: 07/29/2024[facility] ClinicComment on above:Expected: 04/29/2024, Expires: 07/29/2024Start: 04-29-2024 End: 83-93-8749IPAAJ TB SCREENBLOOD TB SCREEN Lab Routine Lesion of liver greater than 1 cm in diameter Alcoholic cirrhosis of liver with ascites (HCC) Liver transplant candidate Metabolic dysfunction-associated steatotic liver di sease (MASLD) Expected: 04/29/2024, Expires: 07/29/2024[facility] ClinicComment on above:Expected: 04/29/2024, Expires: 07/29/2024Start: 04-29-2024 End: 07-29-2024 reactive protein [Mass/volume] in Serum or Plasma by High sensitivity methodHIGH SENSITIVITY C-REACTIVE PROTEIN Lab Routine Lesion of liver greater than 1 cm in diameter Alcoholic cirrhosis of liver with ascites (HCC) Liver transplant candidate Metabolic dysfunction-associated steatotic liver disease (MASLD) Expected: 04/29/2024, Expires: 07/29/2024[facility] Comment on above:Expected: 04/29/2024, Expires: 07/29/2024Start: 04-29-2024 End: 27-54-7250Blgysl Ag 19-9 [Units/volume] in Serum or PlasmaCA 19-9 Lab Routine Lesion of liver greater than 1 cm in diameter Alcoholic cirrhosis of liver withascites (HCC) Liver transplant candidate Metabolic dysfunction- associated steatotic liver disease (MASLD) Expected: 04/29/2024, Expires: 07/29/2024[facility] ClinicComment on above:Expected: 04/29/2024, Expires: 07/29/2024Start: 04-29-2024 End: 19-33-8704CMP W Auto Differential panel - BloodCOMPLETE BLOOD COUNT AND DIFFERENTIAL Lab Routine Lesion of liver greater than 1 cm in diameter Alcoholic cirrhosis of liver with ascites (HCC) Liver transplant candidate Metabolic dysfunction-associated steatotic liver disease (MASLD) Expected: 04/29/2024, Expires: 07/29/2024[facility] ClinicComment on above:Expected: 04/29/2024, Expires: 07/29/2024Start: 04-29-2024 End: 72-18-9369Yzyddxn hepatitis differentiation between hepatitis B and C virus panel - Serum or PlasmaHEP REMOTE PANEL BL Lab Routine Lesion of liver greater than 1 cm in diameter Alcoholic cirrhosis of liver with ascites (HCC) Liver transplant candidate Metabolic dysfunction-associated steatotic liver disease (MASLD) Expected: 04/29/2024, Expires: 07/29/2024[facility] ClinicComment on above:Expected: 04/29/2024, Expires: 07/29/2024Start: 04-29-2024 End: 96-17-7294BORGJCRPPN BLDCREATININE BLD Lab Routine Lesion of liver greater than 1 cm in diameter Alcoholic cirrhosis of liver with ascites (HCC) Liver transplant candidate Metabolic dysfunction-associated steatotic liver disease (MASLD) Expected: 04/29/2024, Expires: 07/29/2024[facility] ClinicComment on above:Expected: 04/29/2024, Expires: 07/29/2024Start: 04-29-2024 End: 06-82-5952KF Chest WO contrastCT CHEST WO IVCON Radiology Routine Pleural effusion associated with hepatic disorder Shortness of breath Lesion of liver greater than 1 cm in diameter Alcoholic cirrhosis of liver with ascites (HCC) Liver transplant candidate Metabolic dysfunction-associated steatotic liver disease (MASLD) Expected: 04/29/2024, Expires: 05/23/2025[facility] ClinicComment on above:Expected: 04/29/2024, Expires: 05/23/2025Start: 04-29-2024 End: 23-04-9416TH Liver W contrast IVCT LIVER W IVCON Radiology Routine Lesion of liver greater than 1 cm in diameter Alcoholic cirrhosis of liver with ascites (HCC) Liver transplant candidate Metabolic dysfunction-associated steatotic l iver disease (MASLD) Expected: 04/29/2024, Expires: 05/23/2025[facility] Comment on above:Expected: 04/29/2024, Expires: 05/23/2025Start: 04-29-2024 End: 94-31-4995Ebfxhajkkbkpzpn IgG Ab [Units/volume] in Serum or PlasmaCMV IGG ANTIBODY BL Lab Routine Lesion of liver greater than 1 cm in diameter Alcoholic cirrhosis of liver with ascites (HCC) Liver transplant candidate Metabolic dysfunction-associated steatotic liver disease (MASLD) Expected: 04/29/2024, Expires: 07/29/2024[facility] ClinicComment on above:Expected: 04/29/2024, Expires: 07/29/2024Start: 04-29-2024 End: 47-19-8885BDM COMPLETEECG COMPLETE ECG Routine Lesion of liver greater than 1 cm in diameter Alcoholic cirrhosis of liverwith ascites (HCC) Liver transplant candidate Metabolic dysfunction-associated steatotic liver disease (MASLD) Expected: 04/29/2024, Expires: 04/23/2025[facility] ClinicComment on above:Expected: 04/29/2024, Expires: 04/23/2025Start: 04-29-2024 End: 37-54-9684QkhbxcrhkvmipdakQNEH Cardiology Routine Lesion of liver greater than 1 cm in diameter Alcoholic cirrhosis of liver with ascites (HCC) Liver transplant candidate Metabolic dysfunction-associated steatotic liver disease (MASLD) Expected: 04/29/2024, Expires: 04/23/2025leveland ClinicComment on above:Expected: 04/29/2024, Expires: 04/23/2025Start: 04-29-2024 End: 55-52-0369Cvmgygt Pearson virus capsid IgG Ab [Units/volume] in SerumEPSTEIN- PEARSON VCA IGG Lab Routine Lesion of liver greater than 1 cm in diameter Alcoholic cirrhosis of liver with ascites (HCC) Liver transplant candidate Metabolic dysfunction-associated steatotic liver disease (MASLD) Expected: 04/29/2024, Expires: 07/29/2024[facility] ClinicComment on above:Expected: 04/29/2024, Expires: 07/29/2024Start: 04-29-2024 End: 04-59-7164Nqtdzisb [Mass/volume] in Serum or PlasmaFERRITIN Lab Routine Lesion of liver greater than 1 cm in diameter Alcoholic cirrhosis of liver with ascites (HCC) Liver transplant candidate Metabolic dysfunction-associated steatotic liver disease (MASLD) Expected: 04/29/2024, Expires: 07/29/2024 [facility] HospitalComment [facility] above:Expected: 04/29/2024, Expires: 07/29/2024Start: 04-29-2024 End: 87-67-5782Odxkbolhlu A1c in BloodHEMOGLOBIN A1C Lab Routine Lesion of liver greater than 1 cm in diameter Type 2 diabetes mellitus without complication, without long-term current use of insulin (HCC) Alcoholic cirrhosis of liver with ascites (HCC) Liver transplant candidate Metabolic dysfunction-associated steatotic liver disease (MASLD) Expected: 04/29/2024, Expires: 07/29/2024 [facility] HospitalComment on above:Expected: 04/29/2024, Expires: 07/29/2024Start: 04-29-2024 End: 84-03-9926Tstylwq function 2000 panel - Serum or PlasmaHEPATIC FUNCTION PNL Lab Routine Lesion of liver greater than 1 cm in diameter Alcoholic cirrhosis o f liver with ascites (HCC) Liver transplant candidate Metabolic dysfunction- associated steatotic liver disease (MASLD) Expected: 04/29/2024, Expires: 07/29/2024[facility] ClinicComment on above:Expected: 04/29/2024, Expires: 07/29/2024Start: 04-29-2024 End: 00-47-0287ZQDXGBGLR A ANTIBODY, IGGHEPATITIS A ANTIBODY, IGG Lab Routine Lesion of liver greater than 1 cm in diameter Alcoholic cirrhosis of liver with ascites (HCC) Liver transplant candidate Metabolic dysfunction-associated steatotic liver disease (MASLD) Expected: 04/29/2024, Expires: 07/29/2024 [facility] HospitalComment on above:Expected: 04/29/2024, Expires: 07/29/2024Start: 04-29-2024 End: 40-49-6135MGQ 1+2 Ab [Presence] in Serum or Plasma by ImmunoassayHIV 1/2 COMBO WITH REFLEX TO DIFFERENTIATION Lab Routine Lesion of liver greater than 1 cm in diameter Alcoholic cirrhosis of liver with ascites (HCC) Liver transplant candidate Metabolic dysfunction-associated steatotic liver disease (MASLD) Expected: 04/29/2024, Expires: 07/29/2024[facility] ClinicComment on above: Expected: 04/29/2024, Expires: 07/29/2024Start: 04-29-2024 End: 47-65-1705Hwxv and Iron binding capacity panel - Serum or PlasmaIRON AND TIBC Lab Routine Lesion of liver greater than 1 cm in diameter Alcoholic cirrhosis of liver with ascites (HCC) Liver transplant candidate Metabolic dysfunction-associated steatotic liver disease (MASLD) Expected: 04/29/2024, Expires: 07/29/2024[facility] ClinicComment on above:Expected: 04/29/2024, Expires: 07/29/2024Start: 04-29-2024 End: 52-50-7397Nciwr 1996 panel - Serum or PlasmaLIPID PANEL BASIC Lab Routine Lesion of liver greater than 1 cm in diameter Alcoholic cirrhosis of liver with ascites (HCC) Liver transplant candidate Metabolic dysfunction-associated steatotic liverdisease (MASLD) Expected: 04/29/2024, Expires: 07/29/2024 [facility] HospitalComment on above:Expected: 04/29/2024, Expires: 07/29/2024Start: 04-29-2024 End: 89-85-7663Timdpkzspnp a [Mass/volume] in Serum or PlasmaLIPOPROTEIN (A) Lab Routine Lesion of liver greater than 1 cm in diameter Alcoholic cirrhosis of liver with ascites (HCC) Liver transplant candidate Metabolic dysfunction- associated steatotic liver disease (MASLD) Expected: 04/29/2024, Expires: 07/29/2024[facility] ClinicComment on above:Expected: 04/29/2024, Expires: 07/29/2024Start: 04-29-2024 End: 94-76-7848ZOVKP REC INIT W/ULIVER REC INIT W/U ALLOGEN Routine Lesion of liver greater than 1 cm in diameter Alcoholic cirrhosis of liver with ascites (HCC) Liver transplant candidate Metabolic dysfunction-associated steatotic l iver disease (MASLD) Expected: 04/29/2024, Expires: 04/23/2025[facility] Comment on above:Expected: 04/29/2024, Expires: 04/23/2025Start: 04-29-2024 End: 75-19-3829Xiisjykjkpc peptide.B prohormone N-Terminal [Mass/volume] in Serum or PlasmaNT PRO BNP Lab Routine Lesion of liver greater than 1 cm in diameter Alcoholic cirrhosis of liver with ascites (HCC) Liver transplant candidate Metabolic dysfunction-associated steatotic liver disease (MASLD) Expected: 04/29/2024, Expires: 07/29/2024[facility] ClinicComment on above: Expected: 04/29/2024, Expires: 07/29/2024Start: 04-29-2024 End: 43-77-1263RBAOSQUGOYPKIYQPGRC (PETH)PHOSPHATIDYLETHANOL (PETH) Lab Routine Lesion of liver greater than 1 cm in diameter Alcoholic cirrhosis of liver with ascites (HCC) Liver transplant candidate Metabolic dysfunction-associated steatotic liver disease (MASLD) Expected: 04/29/2024, Expires: 07/29/2024 [facility] HospitalComment on above:Expected: 04/29/2024, Expires: 07/29/2024Start: 04-29-2024 End: 32-58-3699BJF/PROSTATE SPECIFIC ANTIGEN SCREENINGPSA/PROSTATE SPECIFIC ANTIGEN SCREENING Lab Routine Lesion of liver greater than 1 cm in diameter En counter for screening for malignant neoplasm of prostate Alcoholic cirrhosis of liver with ascites (HCC) Liver transplant candidate Metabolic dysfunction- associated steatotic liver disease (MASLD) Expected: 04/29/2024, Expires: 07/29/2024[facility] ClinicComment on above:Expected: 04/29/2024, Expires: 07/29/2024Start: 04-29-2024 End: 65-90-3447VW panel - Platelet poor plasma by Coagulation assayPROTHROMBIN TIME Lab Routine Lesion of liver greater than 1 cm in diameter Alcoholic cirrhosis of liver with ascites (HCC) Liver transplant candidate Metabolic dysfunction-associated steatotic liver disease (MASLD) Expected: 04/29/2024, Expires: 07/29/2024[facility] Work Phone: Comment on above:Expected: 04/29/2024, Expires: 07/29/2024Start: 04-29-2024 End: 35-07-6569Nieface [Mass/volume] in Serum or PlasmaVITAMIN A/RETINOL Lab Routine Lesion of liver greater than 1 cm in diameter Alcoholic cirrhosis of l iver with ascites (HCC) Liver transplant candidate Metabolic dysfunction- associated steatotic liverdisease (MASLD) Expected: 04/29/2024, Expires: 07/29/2024[place] ClinicComment on above:Expected: 04/29/2024, Expires: 07/29/2024Start: 04-29-2024 End: 39-22-9071KUVAGZH (MEASLES)IGGRUBEOLA (MEASLES)IGG Lab Routine Lesion of liver greater than 1 cm in diameter Alcoholic cirrhosis of liver with ascites (HCC) Liver transplant candidate Metabolic dysfunction-associated steatotic chuyita er disease (MASLD) Expected: 04/29/2024, Expires: 07/29/2024[facility] Comment on above:Expected: 04/29/2024, Expires: 07/29/2024Start: 04-29-2024 End: 14-57-6917PZTASFTRIC BASELINE ONLYAmarillo ClinicComment on above: Expected: 04/29/2024, Expires: 05/23/2025Start: 04-29-2024 End: 25-79-3771OAEGYJPC TREPONEMAL W/REFLEXSYPHILIS TREPONEMAL W/REFLEX Lab Routine Lesion of liver greater than 1 cm in diameter Alcoholic cirrhosis of liver with ascites (HCC) Liver transplant candidate Metabolic dysfunction- associated steatotic liver disease (MASLD) Expected: 04/29/2024, Expires: 07/29/2024[facility] ClinicComment on above:Expected: 04/29/2024, Expires: 07/29/2024Start: 04-29-2024 End: 98-29-3445Gfrcupzgtbf [Units/volume] in Serum or PlasmaTHYROID STIMULATING HORMONE Lab Routine Lesion of liver greater than 1 cm in diameter Alcoholic cirr hosis of liver with ascites (HCC) Liver transplant candidate Metabolic dysfunction-associated steatotic liver disease (MASLD) Expected: 04/29/2024, Expires: 07/29/2024[place] ClinicComment on above:Expected: 04/29/2024, Expires: 07/29/2024Start: 04-29-2024 End: 39-43-6241TDMIJXYOOE PANEL BLDTOXICOLOGY PANEL BLD Lab Routine Lesion of liver greater than 1 cm in diameter Alcoholic cirrhosis of liver with ascites (HCC) Liver transplant candidate Metabolic dysfunction-associated steatotic chuyita er disease (MASLD) Expected: 04/29/2024, Expires: 07/29/2024[facility] Comment on above:Expected: 04/29/2024, Expires: 07/29/2024Start: 04-29-2024 End: 83-05-5991CPYIESMRJQ SCREEN, ROUTINE URINETOXICOLOGY SCREEN, ROUTINE URINE Lab Routine Lesion of liver greater than 1 cm in diameter Alcoholic cirrhosis of liver with ascites (HCC) Liver transplant candidate Metabolic dysfunction- associated steatotic liver disease (MASLD) Expected: 04/29/2024, Expires: 07/29/2024[place] ClinicComment on above:Expected: 04/29/2024, Expires: 07/29/2024Start: 04-29-2024 End: 19-89-2164NZQTIGOPRX CONFIRM ABO/RHTRANSPLANT CONFIRM ABO/RH Blood Bank Routine Lesion of liver greater than 1 cm in diameter Alcoholic cirrhosis of liver with ascites (HCC) Liver transplant candidate Metabolic dysfunction- associated steatotic liver disease (MASLD) Expected: 04/29/2024, Expires: 07/29/2024[facility] ClinicComment on above:Expected: 04/29/2024, Expires: 07/29/2024Start: 04-29-2024 End: 61-38-4276TVRD + SCREENTYPE + SCREEN Blood Bank Routine Lesion of liver greater than 1 cm in diameter Alcoholic cirrhosis of liver with ascites (HCC) Liver transplant candidate Metabolic dysfunction-associated steatotic liver disease (MASLD) Expected: 04/29/2024, Expires: 07/29/2024[place] ClinicComment on above:Expected: 04/29/2024, Expires: 07/29/2024Start: 04-29-2024 End: 13-47-8623XBWBZWGLR ZOSTER IGGVARICELLA ZOSTER IGG Lab Routine Lesion of liver greater than 1 cm in diameter Alcoholic cirrhosis of liver with ascites (HCC) Liver transplant candidate Metabolic dysfunction-associated steatotic chuyita er disease (MASLD) Expected: 04/29/2024, Expires: 07/29/2024[facility] Comment on above:Expected: 04/29/2024, Expires: 07/29/2024Start: 04-29-2024 End: 86-22-8086Ziqidrfpo mxmxjzr6304/29/2024 11:00 AM EST [facility] [address] [place] [address] SaraIvelisse Cabrera, RD [address] [phone] LIVER TRANSPLANT EVALUATIONNutrition TherapyComment on above: LIVER TRANSPLANT EVALUATIONStart: 04-29-2024 End: 83-75-5185qcazzrzfwgJmrgkqzwpeMegyoer on above:LIVER TRANSPLANT EVALUATION TRANSPLANT LIVER EVALStart: 04-29-2024 End: 02-46-1474Yjfiaxt encounter procedureMain Ox[place] A15 Draw StationComment on above:LIVER TRANSPLANT EVALUATIONStart: 04-25-2024 End: 25-70-7674sfblmziqqd16/09/2025 10:00 AM EST [facility] [address] [place] [address] Coordinator, Liver Txp [address] [place] [address] LIVER T RANSPLANT EVALUATIONTransplant CenterComment on above:LIVER TRANSPLANT EVALUATIONStart: 05-75-1146Zqbsktm Directive DiscussionAdvance Directive DiscussionShelby Memorial Hospitaltart: 01-01-2025Medicare Advantage Annual Wellness VisitMediAsc[facility] Annual Wellness VisitShelby Memorial Hospitaltart: 02-22-2024 End: 37-23-2503Glngiyn encounter hrbnhidib64/07/2024 9:00 AM EST Procedure Visit [facility] Ira Walker, DO [address] [place] [address] [facility] EXT DEPStart: 02-15-2024 Hemoglobin A1c measurementDiabetes: Hemoglobin [id number] HealthcareStart: 02-08-2024 End: 12-38-5324Lukjpzi encounter ukzibuunx38/24/2024 8:15 AM EDT Procedure Visit [facility] Ira Walker, DO [address] [place] [address] [facility] EXT DEPStart: 01-18-2024 End: 32-43-1373Wamnpfp encounter oophvdkha07/03/2024 1:30 PM EDT Office Visit [facility] [address] [place] [phone] Ira Walker, DO [address] [place] [address] ArrivedNOIL NB OPHTComment on above:ArrivedStart: 53-49-5138Xlzub-19 Vaccine ( season)Covid-19 Vaccine ( season)[facility]tart: 84-24-7204Gezsb-19 Vaccine ( season) Covid-19 Vaccine ( season)[facility]: 84-59-7609Abwumxywm vaccinationInfluenza Vaccine (#1)[facility] HealthcareStart: 12-13-2023 End: 90-50-8594OS Heart TransthoracicTransthoracic Echo (TTE) Complete Echocardiography Routine Cirrhosis of liver with ascites, unspecified hepatic cirrhosis type (CMS/HCC) Dizziness QUESAAD (dyspnea on exertion) Other ascites Expected: 12/13/2023 (Approximate), Expires: 12/12/2025[facility] Work Phone: Comment on above:Expected: 12/13/2023 (Approximate), Expires: 12/12/2025Start: 12-13-2023 End: 61-60-1512Tfvkgex encounter oeqpvoeye61/28/2024 1:30 PM EDT Office Visit [facility] ARACELY [address] [place] [address] Xuan Espino PA [address] [place] [address] [facility] CI FMStart: 63-58-6141Gamiljpwif A1c measurement Diabetes: Hemoglobin [id number] HealthcareStart: 15-69-3445PvjtnqpgrGrant Hospitaltart: 35-86-3663LgruyggmbGrant Hospitaltart: 06-13-2023 End: 15-52-2714Ujwjfpo encounter amebmuozz02/27/2024 1:30 PM EST Procedure Visit [facility]P Brayan Alves H, DO [address] [address] [facility] EXT DEPStart: 06-09-2023 End: 94-11-7485Vksaenu encounter prnitxtqr83/23/2024 10:30 AM EST Office Visit [facility] [address] [facility] [address] [place] [phone] Brayan Alves H, DO [address] [facility] [address] [place] [address] GENSStart: 02-09-2024Medicare Annual Wellness (AWV)Medicare Annual Wellness (AWV)[facility]: 05-40-5971WgvltqopuGrant Hospitaltart: 43-47-3108Khwlivn Directive DiscussionAdvance Directive DiscussionShelby Memorial Hospitaltart: 72-46-0714Djxsuenzhp A1c measurement Diabetes: Hemoglobin M9NYAFB HealthcareStart: 52-45-2341QryujafwhGrant Hospitaltart: 69-82-0667Jhbqfnychc elastography of liverDH Fibroscan (Not Applicable)[facility] Hospitaltart: 05-47-7159Qmaeuuwowv elastography of liverDH Fibroscan (Not Applicable)[facility] Hospitaltart: 64-57-4174PmzvipbtiGrant Hospitaltart: 09-21-2022 Hepatitis B core antibody measurementGrant Hospitaltart: 09-21-2022 End: 33-57-2926UibwokjkoGrant Hospitaltart: 43-13-1928Xbamotcj Vaccine (2 of 2)Shingrix Vaccine (2 of 2)[facility]: 06-25-2022 Shingrix Vaccine (3 of 3)Shingrix Vaccine (3 of 3)[facility]: 65-36-1089NQjH/Tdap/Td Vaccines (2 - Td or Tdap)DTaP/Tdap/Td Vaccines (2 - Td or Tdap)[facility] HospitalStart: 07-37-5528Cbanu-19 Vaccine (3 - Moderna risk series) Covid-19 Vaccine (3 - Moderna risk series)[facility]: 08-13-2019 Screening for malignant neoplasm of colonShelby Memorial Hospitaltart: 2018 Pneumococcal Vaccine: 65+ (1 of 1 - PCV)Pneumococcal Vaccine: 65+ (1 of 1 - PCV) [facility]tart: 31-46-1932Slzzbkiqlnch Vaccine: 65+ Years (1 of 1 - PCV) Pneumococcal Vaccine: 65+ Years (1 of 1 - PCV)[facility] HospitalStart: 2013 Hepatitis B Vaccine (1 of 3 - Risk 3-dose series)Hepatitis B Vaccine (1 of 3 - Risk 3-dose series)[facility]: 95-87-5262GPJ Vaccine (1 - Risk 60-74 years 1-dose series)RSV Vaccine (1 - Risk 60-74 years 1-dose series)[facility]: 67-82-4812Helvxfunaltj Vaccine: 50+ (1 of 1 - PCV)Pneumococcal Vaccine: 50+ (1 of 1 - PCV)[facility]: 78-71-1837Nlfrqfssz for malignant neoplasm of colonShelby Memorial Hospitaltart: 93-76-9165Dxgvfhyow A Vaccine (1 of 2 - Risk 2-dose series)Hepatitis A Vaccine (1 of 2 - Risk 2-dose series) [facility]: 83-44-9522Tccac screening for proteinDiabetes: Urine Protein ScreeningSelect Specialty HospitalStart: 15-88-2079Jfnlvk PCP Team Chronic Disease VisitAnnual PCP Team Chronic Disease VisitShelby Memorial Hospitaltart: 08-03-1971 Anxiety ScreeningAnxiety ScreeningShelby Memorial Hospitaltart: 03-59-4711AN Controlled (<130/80)BP Controlled (<130/80)[facility]: 39-58-8950Ujkyrmfpuv ScreeningDepression ScreeningShelby Memorial Hospitaltart: 83-23-9347Mgmkpwhwqxlv Vaccine: 65+ Years (1 - PCV)Pneumococcal Vaccine: 65+ Years (1 - PCV)[facility] HospitalStart: 13-03-8222Qhcrgtxxtkht Vaccine: 65+ Years (1 of 2 - PCV) Pneumococcal Vaccine: 65+ Years (1 of 2 - PCV)[facility] HospitalStart: 1953 Abdominal aortic aneurysm screeningAbdominal Aortic Aneurysm ScreeningShelby Memorial Hospitaltart: 04-18-1954Medicare Annual Wellness (AWV)Medicare Annual Wellness (AWV)[facility] HospitalStart: 06-64-6240Tzrxdplko for malignant neoplasm of colon [facility] smooth muscle IgG Ab [Units/volume] in SerumKettering Health Behavioral Medical CenterAlpha 1 antitrypsin [Mass/volume] in Serum or Plasma [facility]al Medical CenterAlpha 1 antitrypsin phenotyping [Identifier] in Serum or Plasma by ImmunofixationKettering Health Behavioral Medical Center End: 23-97-8344Wfvyv-1-Fetoprotein [Mass/volume] in Serum or PlasmaALPHA FETOPROTEIN Lab Routine Cirrhosis of liver without ascites, unspecified hepatic cirrhosis type (HCC) Once per month for 12 Occurrences starting 05/14/2024 until 6C[facility] ClinicComment on above:Once per month for 12 Occurrences starting 05/14/2024 until 05/14/2025acteria identified in Body fluid by Culture BACTERIAL CULTURE AND GRAM STAIN, STERILE BODY FLUID Microbiology Routine Shortness of breath Livertransplant candidate 05/01/2024 10:43 AM [facility] HospitalBacteria identified in Unspecified specimen by Anaerobe cultureDelaware County Hospital Work Phone: comment on above:Release Upon Ordering for 1 Occurrences starting 5BLOOD CULTURE 1BLOOD CULTURE 1 Lab Routine 11/21/2024 1:47 PM EDTNOIL HealthcareBODY FLUID CULTURE, STERILEBODY FLUID CULTURE, STERILE Lab Routine 12/08/2023 7:30 AM EDTNOIL HealthcareCBC W Auto Differential panel - BloodCBC and differential Lab Routine Other acute postprocedural pain Ordered: 08/19/2024NOJefferson Memorial HospitalComment on above:Ordered: 08/19/2024efuroxime free [Mass/volume] in Serum or [facility]iffin HospitalCeruloplasmin [Mass/volume] in Serum or [facility] End: 69-04-7012Qnngjdxolhhqo metabolic 1999 panel - Serum or PlasmaCOMPREHENSIVE METABOLIC PANEL Lab Routine Liver transplant candidate Once per week for 5 Occurrences starting 06/03/2024 until 06/03/2025[facility] Work Phone: Comment on above:Once per week for 5 Occurrences starting 06/03/2024 until 06/03/2025 End: 77-27-2705Xlgdcxqktqsvj metabolic 2000 panel - Serum or PlasmaCOMPREHENSIVE METABOLIC PANEL Lab Routine Other ascites Once per week for 12 Occurrences starting 07/02/2024 until 07/02/2025[facility] Work Phone: Comcxqg on above:Once per week for 12 Occurrences starting 07/02/2024 until 07/02/2025 End: 71-13-0991Exhkdfnudqwii metabolic 2000 panel - Serum or PlasmaCOMPREHENSIVE METABOLIC PANEL Lab Routine Cirrhosis of liver without ascites, unspecified hepatic cirrhosis type (HCC) Once per week for 12 Occurrences starting 07/25/2024 until 07/25/2025[facility] Work Phone: Comment on above:Once per week for 12 Occurrences starting 07/25/2024 until 07/25/2025 End: 64-64-5678WA Chest W contrast IVCProMedica Toledo Hospital Work Phone: Comment on above:ONCE for 1 Occurrences starting 04/29/2024 until 04/29/2024YTOLOGY NON-[facility] Health AdministrationComment on above: Release Upon Ordering for 1 Occurrences starting 05/01/2024, 1 completed End: 89-07-3893WMM COMPLETEECG COMPLETE ECG Routine Pleural effusion associated with hepatic disorder Shortness of breath Lesion of liver greater than 1 cm in diameter Alcoholic cirrhosis of liver with ascites (HCC) Liver transplant candidate Metabolic dysfunction-associated steatotic liver disease (MASLD) 1 Occurrences starting 05/02/2024 until 05/02/2025[facility] HospitalComment on above:1 Occurrences starting 05/02/2024 until 05/02/2025ECG COMPLETEECG COMPLETE ECG 09/29/2024 5:07 PM EDTCProMedica Toledo Hospital End: 94-79-8434UXJXKURR Endoscopy Routine Bile duct stricture (HCC) 1 Occurrences starting 11/13/2024 until 11/13/2025[facility] Work Phone: Comment on above:1 Occurrences starting 11/13/2024 until 11/13/2025 End: 64-22-0514Kdxkfzlh for paracentesis and insertion of tube of Peritoneum ABDOM PARACENTESIS DX/THER W IMAGING GUIDANCE Endoscopy Routine Shortness of breath Liver transplant candidate 1 Occurrences starting 04/29/2024 until 04/29/2025[facility] HospitalComment on above:1 Occurrences starting 04/29/2024 until 04/29/2025 End: 53-24-7050Mwhwgbkb for paracentesis and insertion of tube of Peritoneum ABDOM PARACENTESIS DX/THER W IMAGING GUIDANCE Endoscopy Routine Other ascites 1 Occurrences starting 05/24/[address] [place] [address] Work Phone: Comment on above:1 Occurrences starting 05/24/2024 until 05/24/2025 End: 47-34-7579Cxeblpcl for paracentesis and insertion of tube of Peritoneum ABDOM PARACENTESIS DX/THER W IMAGING GUIDANCE Endoscopy Routine Other ascites Every other week for 12 Occurrences starting 06/11/2024 until 06/11/2025 [facility] Work Phone: Comment on above:Every other week for 12 Occurrences starting 06/11/2024 until 06/11/2025Guidance for percutaneous biopsy of Bone [facility] Work Phone: Comment on above:Ordered: 07/25/2024Guidance for thoracentesis of ChestIMAGING GUIDED THORACENTESIS Radiology Routine Pleural effusion associated with hepatic disorder Ordered: 5CProMedica [facility] Hospital Work Phone: Comment on above:Ordered: 04/29/2024Hepatitis B virus surface Ab [Presence] in SerumKettering Health Behavioral Medical CenterHelancaster community hospital B virus surface Ag [Presence] in Serum or Plasma by ImmunoassayKettering Health Behavioral Medical CenterHelancaster community hospital C virus IgG Ab [Presence] in Serum or Plasma by ImmunoassayKettering Health Behavioral Medical Center End: 02-74-2070VCKU DIFFUSION CAPACITY (DLCO)LUNG DIFFUSION CAPACITY (DLCO) PFT Routine Pleural effusion associated with hepatic disorder 1 Occurrences starting 05/23/2024 until 06/22/2025[facility] HospitalComment on above:1 Occurrences starting 05/23/2024 until 06/22/2025LUNG DIFFUSION CAPACITY (DLCO)LUNG DIFFUSION CAPACITY (DLCO) PFT Routine Pleural effusion associated with hepatic disorder 05/31/2024 7:57 AM [facility] Work Phone: MANUAL DIFFERENTIAL, BODY FLUIDMANUAL DIFFERENTIAL, BODY FLUID Lab Routine Shortness of breath Liver transplant candidate 05/01/2024 10:43 AM [facility] ClinicMANUAL DIFFERENTIAL, BODY FLUIDMANUAL DIFFERENTIAL, BODY FLUID Lab Routine Other ascites 05/31/2024 9:30 AM [facility] Work Phone: Mitochondria M2 IgG Ab [Units/volume] in Serum [facility] End: 91-42-0096KF Cervical spine WO and W contrast IVMRI CERVICAL SPINE WO/W IVCON Radiology Routine Low back pain, unspecified back pain laterality, uns pecified chronicity, unspecified whether sciatica present 1 Occurrences starting 05/18/2024 until 06/17/2025[facility] ClinicComment on above:1 Occurrences starting 05/18/2024 until 06/17/2025 End: 27-30-6296VO Lumbar spine WO and W contrast IVMRI LUMBAR SPINE WO/W IVCON Radiology Routine Low back pain, unspecified back pain laterality, unspecified chronicity, unspecified whether sciatica present 1 Occurrences starting 05/18/2024 until 06/17/2025[facility] ClinicComment on above:1 Occurrences starting 05/18/2024 until 06/17/2025 End: 43-81-5654LI Thoracic spine WO and W contrast IVMRI THORACIC SPINE WO/W IVCON Radiology Routine Low back pain, unspecified back pain laterality, uns pecified chronicity, unspecified whether sciatica present 1 Occurrences starting 05/18/2024 until 06/17/2025[facility] ClinicComment on above:1 Occurrences starting 05/18/2024 until 06/17/2025 End: 37-98-0913LM Thoracic spine WO contrastMRI THORACIC SPINE WO IVCON Radiology Routine Pathological fracture, other site, initial encounter for fracture 1 Occurrences starting 06/10/2024 until 07/10/2025[facility] Work Phone: Comment on above:1 Occurrences starting 06/10/2024 until 07/10/2025MR Thoracic spine WO contrastMRI THORACIC SPINE WO IVCON Radiology Routine Pathological fracture, other site, initial encounter for fracture 07/05/2024 6:46 PM [facility]DReg[facility] Work Phone: Patient EducationCleveland Clinic [place] [facility] Phone[facility] Work Phone: End: 70-56-7557WV panel - Platelet poor plasma by Coagulation assayPROTHROMBIN TIME Lab Routine Cirrhosis of liver without ascites, unspecified hepatic cirrhosis type(HCC) Once per month for 12 Occurrences starting 05/14/2024 until 05/14/2025leveland ClinicComment on above:Once per month for 12 Occurrences starting 05/14/2024 until 05/14/2025SPIROMETRY WITH DILATOR IF OBSTRUCTED SPIROMETRY WITH DILATOR IF OBSTRUCTED PFT Routine Dyspnea, unspecified type 05/23/2024 10:31 AM [facility] Work Phone: End: 43-20-1039TCHCZVVTWQ WITH DILATOR IF OBSTRUCTEDSPIROMETRY WITH DILATOR IF OBSTRUCTED PFT Routine Pleural effusion associated with hepatic disorder1 Occurrences starting 05/23/2024 until 06/22/2025[facility] Work Phone: Comment on above:1 Occurrences starting 05/23/2024 until 06/22/2025SPIROMETRY WITH DILATOR IF OBSTRUCTEDSPIROMETRY WITH DILATOR IF OBSTRUCTED PFT Routine Pleural effusion associated with hepatic disorder 05/31/2024 7:57 AM [facility] Work Phone: [facility] [place] [facility] [place] Lab Routine 11/19/2024 2:45 PM [facility] End: 77-02-0888LC Pelvis limitedUS PELVIS LTD Radiology Routine Unilateral inguinal hernia without obstruction or gangrene, recurrence not specified 1 Occurrences starting 05/30/2024 until 06/29/2025[facility] Work Phone: Comment on above:1 Occurrences starting 05/30/2024 until 06/29/2025 End: 93-46-5559VY THORACENTESIS (POC) H23 USE ONLYUS THORACENTESIS (POC) H23 USE ONLY Imaging Procedures Routine ONCE for 1 Occurrences starting 05/30/2024 until [facility] Work Phone: comment on above:ONCE for 1 Occurrences starting 05/30/2024 until 05/30/2024 Immunizations Immunization DateImmunizationNotesCare LfhrnzdeSnpkanbc68-59-7866sqpyoizhp A vaccine, adult dosageVenus Aden DMD Work Phone: [facility] HospitalCddkqs41-12-1225Wncqtqvjd B vaccine (recombinant), CpG adjuvantedVenus Aden DMD Work Phone: [facility] HospitalOijtur60-06-9549qnvlifjks A and hepatitis B vaccineGeneric ProviderSelect Specialty HospitalAxxsxbamnp32-79-8865Ngieurkjd B vaccine (recombinant), CpG adjuvantDavid MALDONADO Work Phone: [facility] HospitalLwhnjhxwbn60-39-4792QFE, recombinant, protein subunit RSVpreF, adjuvant reconstitu, 120mcg/0.5mL, PF (Arexvy)Xuan MALDONADO Work Phone: NOJefferson Memorial HospitalGfvguunghu69-66-2969masecvgog A vaccine, adult dosageJade Arora MD Work Phone: [facility] HospitalLelnho50-22-9948Qhzkbzbzc B vaccine (recombinant), CpG adjuvantedJade Arora MD Work Phone: [facility] HospitalWvoxyl99-39-2746hhotzhpqc, high dose seasonal, preservative-freeTransplant PharmacistParkwood Hospital11-18-2024 pneumococcal conjugate (PCV20) vaccine, 20 valent (PREVNAR 20)Transplant PharmacistParkwood HospitalUfacqx98-08-1274wfsvmhhjuffi conjugate vaccine, 7 valent Generic ProviderSelect Specialty HospitalPxtltrldal79-76-9309qjfgwkixj virus vaccine, unspecified formulationGeneric ProviderSelect Specialty HospitalQzctahbetq11-81-0002gvqybercn virus vaccine, unspecified formulationPaAequus Technologies [facility] 993850-10-2023Influenza, Seasonal, Quadrivalent, AdjuvantedGeneric Provider [facility] HospitalMxwbwdjlko77-52-2740mkfugd vaccine recombinantFredric Itzkowitz DO Work Phone: [facility] HospitalFkepbiejrv24-26-2677fupcfnl toxoid, reduced diphtheria toxoid, and acellular pertussis vaccine, adsorbedFredric Itzkowitz DO Work Phone: [facility] HospitalGdmyhhegnz97-70-5659ikjnozsee virus vaccine, unspecified formulationCanvace [facility] 993850-18-2022influenza, high dose seasonal, preservative-freeFredric Itzkowitz DO Work Phone: [facility] HospitalNievicmxzb02-25-2556mmwuyvigs virus vaccine, unspecified formulationPatrick ARRIAZA [facility] 993851-03-2021influenza, high dose seasonal, preservative-freeFredric Itzkowitz DO Work Phone: [facility] HospitalSkstvrdtwp39-61-7889kdyuehbor, injectable, quadrivalent, contains preservativeShelli Boo APRN.SAMPLE COLLECTOR Work Phone: [facility] HospitalEfpfnc81-13-9079seyglrakl, injectable, quadrivalent, preservative freeAmy Vick [facility]10-30-2017 influenza virus vaccine, unspecified formulationPaAequus Technologies [facility] 993850-30-2017influenza, injectable, quadrivalent, contains preservative Brayan Itzkowitz DO Work Phone: [facility] HospitalUvmyhlcbhq78-01-6046dlraskfyc, injectable, quadrivalent, contains preservativeAmy Vick [facility]10-17-2016 influenza virus vaccine, unspecified formulationPaAequus Technologies [facility]10-17-2016influenza, seasonal, injectableFredric Itzkowitz DO Work Phone: [facility] HospitalStdrxysfzk61-91-7260ccavdv vaccine, liveFredric Itzkowitz DO Work Phone: [facility] HospitalYqyqhlqiow39-44-3198gbiajvvqn virus vaccine, unspecified formulationPaAequus Technologies [facility]10-27-2015influenza, seasonal, injectableFredric Itzkowitz DO Work Phone: [facility] HospitalEbdkjxrmjo95-89-0480jshluzkjp virus vaccine, unspecified formulationPaAequus Technologies [facility]ery09-30-2014influenza, seasonal, injectableFredric Itzkowitz DO Work Phone: [facility] HospitalIfkrfohjwp27-00-2111crapmjukl virus vaccine, unspecified formulationFredric Itzkowitz DO Work Phone: [facility] Payers DatePayer CategoryPayerPolicy [id number] or OtherSELECT MEDICAL [id number] Medicare (Managed Care)[employer] MEDICARE Member Subscriber Plan / Payer (Effective 2024-Present) Name: Loyd Blandon Relation to Subscriber: Self Name: Loyd Blandon Payer ID: [id number] (NAIC) Type: PPO Address: [address] [place] [id number] MEDICARE ADVANTAGE [id number] 2022Medicare [id number] Health Insurance [id number] 2.16.840.1.243642.3.57[id number] 2.16.840.1.860998.3.57[id number] 2..840.1.862444.3.57[id number] 2..840.1.574408.3.57[id number] 2.16.840.1.162568.3.57[id number] 2.16.840.1.473092.3.57[id number] 2.16.840.1.337085.3.57[id number] 2.16.840.1.151116.3.57[id number] 2.16.840.1.024672.3.57[id number] 2.16.840.1.353945.3.57[id number] 2.16.840.1.879741.3.57[id number] 2.16.840.1.423127.3.579.2.1259Unknown 1.2.840.746541.1.13.159.2.7.[id number] 2.16.840.1.0[id number] 2.16.840.1.864392.3.579.2.531 [id number] 2.16.840.1.0[id number] 2.16.840.1.7[id number] 2.16.840.1.556506.3.579.2.531 [id number] 2.16.840.1.165332.3.579.2.074Jgmfbqx0B16EE6PN70 Social History DateTypeDetailFacilityStart: 09-21-2022 End: 38-94-7004Ahikigx smoking status NHISEx-smoker (finding)[facility]tart: 33-58-6608Edn [facility]: 05-18-2023 End: 11-04-5813Kkr [facility]igned At [facility]art: 02-18-1971 End: 65-79-4549Qzgnyip of tobacco useCurrent smokerNOMS HealthcareStart: 02-18-1971 End: 99-14-0468Mfuuywe of tobacco useCigarette SmokerNOMS HealthcareStart: 11-17-2022 End: 05-78-3794Idojfba use and exposureSmokeless tobacco non-userNOMS Healthcare Start: 05-18-2023 End: 17-18-9339Jbnfjdl of Social functionNOMS HealthcareStart: 81-33-1636Ekj Assigned At BirthNot on fileNOMS HealthcareTobacco smoking statusNo Smoking Status EnteredExecutive [facility] Start: 12-13-2023 End: 84-27-1098Tysnxlwsu beverage intakeCurrent drinker of alcohol (finding)[facility] HealthcareStart: 03-18-2012 End: 17-25-2126Ytz often do you need to have someone help you when you read instructions, pamphlets, or other written material from your doctor or pharmacy [SILS]RarelyNOMS HealthcareDo you belong to any clubs or organizations such as temple groups, unions, fraternal or athletic groups, or school groups?NoNOMS HealthcareAre you now , , , , never or living with a partner?MarriedNOMS HealthcareHow often to you have a drink containing alcohol?NeverNOMS HealthcareDo you feel stress - tense, restless, nervous, or anxious, or unable to sleep at night because yourmind is troubled all the time - these days [OSQ]To some extentNOMS Healthcare(I/We) worried whether (my/our) food would run out before (I/we) got money to buy more.Never trueNOIL HealthcareStart: 66-48-2075Mdjvgrt Comment2-3 times per week, 1-2 drinks at a timeCASTLEVIEW HOSPITAL HealthcareStart: 44-09-3138Bvgvap identityIdentifies as male gender (finding)[facility] HealthcareStart: 59-82-6171Qlmobzc Comment1-2 drinks nightlyCohiohealth [facility] ClinicStart: 31-94-9734Sbdeeq orientationHeterosexual (finding) [facility] Hospitaltart: 05-01-2024 End: 72-00-2358Ktqwpaieh beverage intakeEx-drinker (finding)[facility] Start: 06-19-2024 End: 07-58-1381YtjLmsr (finding)[facility] CenterHow often do you need to have someone help you when you read instructions, pamphlets, or other written material from your doctor or pharmacy [SILS]RarelyCASTLEVIEW HOSPITAL Healthcare Start: 21-82-5763Fxnelhr CommentRecovering alcoholicParkwood Hospital Medical Equipment Procedure CodeEquipment CodeEquipment Original TextEquipment IdentifierDatesMesh Srg Parietex 15cm [facility] - [id number]: 01-27-5074Kgjpajt on above:Description: parietex composite meshStent Vinegar Bend Viabil 10mm Metal 100mm 200cm Endoprosthesis No Hole Full Cover - [id number]: 10-15-2024 Comment on above:Description: Static magnetic field of 1.5 and 3.0 Rosita Maximum spatial gradient of 3,000 Gauss/cm Maximum MR system reported, whole body averaged specific absorption rate (MARTA) of 4 W/kgGraft Infuse 20ga Medium Bovine Collagen Rhbmp-2 2x1in Bone Vial Absorbable - [id number]_psdDhtnu: 12-21-7059Ivhco Bone Sub 10cc Dbm Putty Inert Reverse Phase Carrier Osteosparx - [id number]_ptaXcoos: 40-00-9955Dfplm Bone 30cc 1mm-4mm Range Granules Cancellous Crushed - [id number]_tnhYxous: 03-99-5909Tcksn Erica 3 Titanium Set Connie Spine - [id number]_tenFgapo: 21-50-9039Xqv Erica 3 6mm 480mm Spinal - [id number]_vztGqptf: 16-79-8986Aivlu Erica 3 Gamez 6.5mm 50mm Bone Polyaxial Nonsterile Spine - [id number]_tisPxvfs: 12-92-3267Jkcma Erica 3 Gamez 7.5mm 50mm Bone Polyaxial Nonsterile Spine - [id number]_kqu Start: 37-59-5359Dctuu Erica 3 Gamez 8.5mm 50mm Bone Polyaxial Nonsterile Spine [id number]_impStart: 62-56-5385Vuqzi Erica 3 Gamez 9.5mm 50mm Bone Polyaxial Nonsterile [id number]_ibmBttsr: 83-38-9312Hmikb 10fr Duodenal Bend Plastic 12cm Biliary Temporary Rapid Exchange - [id number]_cylUcwjw: 12-19-2024 Goals DatePatient GoalDesired Activity/StatePersonal health goalPersonal health goal Functional Status UxirOjgocpgfxvVwcubaUmuhkneh91-93-7430Keavhaz Health Questionnaire 2 item (PHQ- 2) [Reported][facility]ty HospitalFcrhdhtear63-84-5947Jsz you deaf, or do you have serious difficulty hearingNo 05/31/2024 4:27 PM Cecil Peña RN [facility] ClinicJyvhkr69-83-3811Uat you blind, or do you have serious difficulty seeing, even when wearing glassesNo 05/31/2024 4:27 PM Cecil Peña RN NoCGeorgetown Behavioral HospitalEpqkab50-28-9513Mg you have serious difficulty walking or climbing stairsNo 05/31/2024 4:27 PM Cecil Peña RN NoCGeorgetown Behavioral HospitalNlechu53-29-6190Of you have difficulty dressing or bathingNo 05/31/2024 4:27 PM Cecil Peña RN NoCGeorgetown Behavioral HospitalGchpaa00-69-1026Dloqwqz of a physical, mental, or emotional condition, do you have difficulty doing errands alone such as visiting a physician's office or shoppingNo 05/31/2024 4:27 PM Cecil Peña RN [facility] CenterTvzmib58-64-5857Quoypvz Health Questionnaire 2 item (PHQ-2) [Reported] [facility] HospitalOcurpevzpf43-37-9206Tufqhzb falling or staying asleep, or sleeping too much Not at all 05/15/2024 2:34 PM EST Mychart, Generic Not at allSelect Specialty Hospital 78-26-1333Dxspaxj tired or having little energySeveral days 05/15/2024 2:34 PM EST Mychart, Generic Several [facility] RehabTuhbcdcqir78-47-2013Pavx appetite or overeatingSeveral days 05/15/2024 2:34 PM EST Mychart, Generic Several [facility] RehabFkbyluqvqd31-20-0833Ncewjuq bad about yourself-or that you are a failure or have let yourself or your family downNot at all 05/15/2024 2:34 PM EST Mychart, Generic Not at allSelect Specialty HospitalEycyrwztfs70-74-3598Dbajmer concentrating on things, such as reading the newspaper or watching televisionSeveral days 05/15/2024 2:34 PM EST Mychart, Generic Several [facility] RehabBabhhsswzu72-20-4725Vtiwwm or speaking so slowly that other people could have noticed. Or the opposite - being so fidgety or restless that you have been moving around a lot more than usualNearly every day 05/15/2024 2:34 PM EST Mychart, Generic Nearly every daySelect Specialty Hospital 25-75-9718Ivzwwoke that you would be better off , or of hurting yourself in some wayNot at all 05/15/2024 2:34 PM EST Mychart, Generic Not at allSelect Specialty HospitalDkegkvfbqb28-15-5403Zqqik score [AUDIT-C]0 12/12/2023 1:46 PM EDT Mychart, GenericSelect Specialty HospitalHvkablwptu47-82-1464Yja often do you have a drink containing alcohol?Never 12/12/2023 1:46 PM EDT [facility], Generic [facility] 30-90-8758Ellypwihjy statusPatient does not drink 12/12/2023 1:46 PM EDT Mychar, Generic Patient does not drinkSelect Specialty HospitalQhjbxbpckr92-47-8411Qzl often do you have 6 or more drinks on 1 occasion?Never 12/12/2023 1:46 PM EDT Mychart, Generic [facility] HospitalRtydbkkpqh70-31-5819Vzp you deaf, or do you have serious difficulty hearingNo 08/28/2014 2:34 PM Bebe Gutierrez MA [facility]05-14-2015Are you blind, or do you have serious difficulty seeing, even when wearing glassesNo 08/28/2014 2:34 PM Bebe Gutierrez MA [facility]05-14-2015Do you have serious difficulty walking or climbing stairsNo 08/28/2014 2:34 PM Bebe Gutierrez MA [facility]05-14-2015Do you have difficulty dressing or bathingNo 08/28/2014 2:34 PM Bebe Gutierrez MA [facility] ClinicCxtdfo81-32-5532Kylxjrm of a physical, mental, or emotional condition, do you have difficulty doing errands alone such as visiting a physician's office or shoppingNo 08/28/2014 2:34 PM Bebe Gutierrez MA [facility] Mental Status ClzdZtrnrlwhhjYsosziTjupqebq93-71-8733Btapimo of a physical, mental, or emotional condition, do you have serious difficulty concentrating, remembering, or making decisionsNo 05/31/2024 4:27 PM Cecil Peña RN [facility] ClinicGfgmuo59-32-3896Pdszgdo of a physical, mental, or emotional condition, do you have serious difficulty concentrating, remembering, or making decisionsNo 08/28/2014 2:34 PM Bebe Gutierrez MA [facility] Clinical Notes 09-21-2022 to 02-18-2025 Note Date & UymiEqbsGavdrrbn96-09-8521 [facility]Our [facility]-29-2025 NoteOur [facility]10-27-2025 NoteOur [facility] 01-28-2025 NoteOur [facility]10-10-2025 NoteHNO ID: [id number] Author: EFREN TILLEY RT(R) Service: Radiology Author Type: Technologist Type: Progress Notes Filed: 01/24/2025 14:08 Note Text: Radiology Service Progress Note PATIENT NAME: Loyd Blandon DATE OF SERVICE: January 24, 2025 TIME: 2:08 PM PATIENT IDENTITY VERIFICATION COMPLETED USING TWO [...] PATIENT PRESENTS WITH AN IMPLANTABLE OR ATTACHED WORKING SUPERVISOR: No RADIOLOGY DEPARTMENT: CT; Exam(s) Completed: Spine . Anesthesia: No PERIPHERAL IV DATA: Not applicable SIGNED BY: RT Eliana(R) January 24, 2025 2:08 [facility] HospitalLbrhncke06-65-5731 [facility] 01-13-2025 NoteOur [facility]09-28-2025 NoteOur [facility]09-27-2025 NoteOur [facility]09-26-2025 NoteOur [facility]09-26-2025 NoteOur [facility]09-26-2025 Note [facility]09-25-2025 NoteOur [facility]09-24-2025 NoteOur [facility]09-24-2025 NoteOur [facility] 01-07-2025 NoteOur [facility]09-23-2025 NoteOur [facility]09-23-2025 NoteOur [facility]09-23-2025 NoteOur [facility]09-22-2025 NoteOur [facility]09-21-2025 Note [facility]09-20-2025 NoteOur [facility]09-20-2025 NoteOur [facility]09-20-2025 NoteHNO ID: [id number] Author: KEI NUNEZ, RN Service: Nursing Author Type: Registered Nurse Type: Progress Notes Filed: 01/04/2025 04:55 Note Text: oracle technical architect stated to hold tube feed at 6am.[facility]09-19-2025 NoteOur [facility]08-06-2025 Telephone encounter Note* Telephone Encounter - Carina Ziegler RN - 11/20/2024 10:19 AM EDT I spoke with Dr No, r/w him recent admit for this L superior/inferior pubic ramus fracture and plan for pt to be admitted for rehab. D/w him preference now to have him go back to [facility](he will d/w the care coord/SW team and I sent Dr Cruz and our LINDA Lakisha Boo, a text regarding this plan). I also r/w him the labs that we would need until he is sent to rehab for continuationof care. 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 D/w him preference now to have him go back to [facility](he will d/w the care [facility]/SW team and I sent Dr Cruz and our LINDA Lakisha Boo, a text regarding this plan). I also r/w him the labs that we would need until he is sent to rehab for continuationof care. Carina Ziegler RN (Molly), BSN, [facility] Liver Client Support Manager * Telephone Encounter - Lee Ann Redmond - 11/19/2024 4:[address] No called to provide an update on the patient. I confirmed with him whether it was an emergency, and he stated it was NOT. He can be reached at the number below at any time Requesting a return call from the pharmacy care coordinator. Please call him at [phone] .. Lee Ann Redmond documented in this encounterParkwood Hospital08-05-2025 Telephone encounter Note * Telephone Encounter - Lee Ann Redmond - 11/19/2024 4:[address] No called to provide an update on the patient. I confirmed with him whether it was an emergency, and he stated it was NOT. He can be reached at the number below at any time Requesting a return call from the pharmacy care coordinator. Please call him at [phone] .. Lee Ann Redmond [facility]08-05-2025 Telephone encounter Note* Telephone Encounter - Carina Ziegler RN - 11/19/2024 9:52 AM EDT Late entry:I spoke with pt's yesterday, he was doing well. VSS, but she did state that he got up and fell on his buttocks-he was being a bit impulsive she stated and we all had a discussion about him asking for help before getting up to try to do things on his own. He did not hit his head, butwas c/o his back pain being a bit more sore. They have f/u this week and plan for spine imaging as well. Chika will keep me posted CarinaFahad) Benedict Ziegler RN, BSN, [facility] Liver Client Support Manager [facility]08-05-2025 Miscellaneous Notes* Telephone Encounter - Carina Ziegler RN - 11/19/2024 9:52 AM EDT Late entry:I spoke with pt's yesterday, he was doing well. VSS, but she did state that he got up and fell on his buttocks-he was being a bit impulsive she stated and we all had a discussion about him asking for help before getting up to try to do things on his own. He did not hit his head, butwas c/o his back pain being a bit more sore. They have f/u this week and plan for spine imaging as well. Chika will keep me posted CarinaFahad) Benedict Ziegler RN, BSN, [facility] Liver Client Support Manager * Telephone Encounter - Cinthia Bishop - 11/18/2024 11:25 AM EDT Fabiana called in stating that she is returning Tara's call. Fabiana is requesting a call back at [phone]. documented in this encounterParkwood Hospital08-04-2025 Telephone encounter Note * Telephone Encounter - Cinthia Bishop - 11/18/2024 11:25 AM EDT Fabiana called in stating that she is returning Tara's call. Fabiana is requesting a call back at [phone]. [facility] Work Phone: [phone] Telephone encounter Note* Telephone Encounter - Carina Ziegler RN - 11/18/2024 10:48 AM EDT Called and l[facility]m for pt's to call [facility] with [facility] Car[facility]ler RN (Molly), BSN, [facility] Liver Client Support Manager [facility]08-04-2025 Miscellaneous Notes* Telephone Encounter - Carina Ziegler RN - 11/18/2024 10:48 AM EDT Called and l/m for pt's to call back with updates [facility] Carina Ziegler RN (Molly), BSN, [facility] Liver Client Support Manager documented in this encounterParkwood Hospital08-01-2025 History of Present illness Narrative* Mercedez Tobar RPh - 11/15/2024 2:28 PM EDT [facility] OPAT Documentation Note Per orders of Dr. Nicholson honor daptomycin stop date of 11/12. Okay to remove PICC. Per chart review,patient completed daptomycin as planned on 11/12 at [facility], and was discharged from the facility today. Total Time Spent on this Encounter (in minutes): < 5 Mercedez Tobar RPh 11/15/2024 2:28 PM documented in this encounterParkwood Hospital07-31-2025 History of Present illness Narrative* Jennie Nicholson MD - 11/14/2024 2:24 PM EDT [...] +/-, EBV +/+) who I saw at [facility] during his admission from 10/07 to 10/30/24. [...] removed. 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 F/u with ID as needed The pharmacy care coordinator is CCed to this note I personally monitored antibiotics requiring intensive drug monitoring for therapeutic and adverse effects for toxicity. I spent a total of 37 minutes on the date of the service which included preparing to see the patient, fnwl-fc-cwha patient care, completing clinical documentation, obtaining and/or reviewing separately obtained history, performing a medically appropriate examination, and counseling and educating the patient/family/caregiver. Jennie Nicholson M.D. Staff, Infectious Disease [facility] Thank you for allowing us to contribute to this patient's care. Please call with questions. Case findings/test results and suggestions discussed with the requesting physician via the shared electronic medical record documented in this encounterParkwood Hospital07-30-2025 Nurse Note* Kassie Pimentel RN - 11/13/2024 5:42 PM EDT Benny Payan's transport picked up pt to transport back to [facility]. [facility]07-30-2025 Nurse Note* Kassie Pimentel RN - 11/13/2024 5:42 PM EDT Benny Payan's transport picked up pt to transport back to [facility]. * Kassie Pimentel RN - 11/13/2024 3:54 PM EDT Report called to [facility]. Per Benny Alatorre, picker machine operator approximately 90 mins from 15:40 pm. [...] None Electronically Signed By: Kassie Pimentel RN * Jose Juan Schuster RN [...] RN In Department: GASTROENTEROLOGY documented in this encounterParkwood Hospital07-30-2025 Nurse Note* Kassei Pimentel RN - 11/13/2024 3:54 PM EDT Report called to [facility]. Per Benny Alatorre, picker machine operator approximately 90 mins from 15:40 pm. 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 Refer to note in patient chart for documentation of history and physical. Referring Physician: Nick Cameron (Referring MD) Medicines: General Anesthesia, Cipro 400 [...] administered by the anesthesia team. 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 Surgical [...] 3 months. 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 Refer to note in patient chart for documentation of history and physical. Referring Physician: Nick Cameron (Referring MD) Medicines: General Anesthesia, Cipro 400 [...] administered by the anesthesia team. 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 Surgical [...] 3 months. Procedure Code(s): --- Professional --- 60050, Endoscopic retrograde cholangiopancreatography (ERCP); with removal of calculi/debris from biliary/pancreatic duct(s) 46093, Endoscopic catheterization of the biliary ductal syste (more content not included)...[id number] Nurse Note* Jose Juan Schuster RN - 11/13/2024 2:25 [...] Jose Juan Schuster RN In Department: GASTROENTEROLOGY [facility] History and physical note* Bebo Barker MD - 11/13/2024 1:00 PM [...] 13, 2024 TIME: 2:26 PM Created 2023 [facility] Work Phone: 1(294) 779-419907-30-2025 History and physical note* Bebo Barker MD - 11/13/2024 1:00 PM [...] 2:26 PM Created 2023 documented in this encounterParkwood Hospital07-29-2025 Telephone encounter Note * Telephone Encounter - Carina Ziegler RN [...] electronically send to pharmacy. Carina Ziegler RN [facility]-29-[facility] Miscellaneous Notes* Telephone Encounter - Carina Ziegler RN - [...] pharmacy. Carina Ziegler RN documented in this encounterParkwood Hospital07-29-2025 Telephone encounter Note * Telephone Encounter - Ceci Valencia RN - 11/12/2024 1:19 PM EDT RN daycare provider placed return call to [facility] per request. Spoke with Lisa who expressed had spoke with transplant team also. Advised that patient can take medications in am with small sipsof water, advised to take any cardiac or seizure medication. Patient not on any medications for diabetes (insulin). If able to tolerate transplant medications on empty stomach, if not will hold untilafter procedure. Heparin being held currently. Denies any oral blood thinners. Lisa calling to clarify alright to take medication with small sips a water and confirmed. No additional questions andcall was ended. MELISSA Webster, RN Specialty Nurse Pad Making Machine Operator Digestive Disease [facility]-29-[facility] Miscellaneous Notes* Telephone Encounter - Ceci Valencia RN - 11/12/2024 1:19 PM EDT RN daycare provider placed return call to [facility] per request. Spoke with Lisa who expressed had spoke with transplant team also. Advised that patient can take medications in am with small sipsof water, advised to take any cardiac or seizure medication. Patient not on any medications for diabetes (insulin). If able to tolerate transplant medications on empty stomach, if not will hold untilafter procedure. Heparin being held currently. Denies any oral blood thinners. Lisa calling to clarify alright to take medication with small sips a water and confirmed. No additional questions andcall was ended. MELISSA Webster, RN Specialty Nurse Pad Making Machine Operator Digestive Disease documented in this encounterParkwood Hospital07-25-2025 Progress note* Result Encounter Note - Carina Ziegler RN - 11/08/2024 1:29 PM EDT Reviewed liver transplant results and followed by [facility] staff-tacro level better. They are followingscr Carina Ziegler RN (Molly), BSN, [facility] Liver Client Support Manager [facility] Miscellaneous Notes* Result Encounter Note - Carina Ziegler RN - 11/08/2024 1:29 PM EDT Reviewed liver transplant results and followed by [facility] staff-tacro level better. They are followingscr Carina Ziegler (Molly) RN, BSN, [facility] Liver Client Support Manager * Result Encounter Note - Eva Dhillon RN - 10/31/2024 2:29 PM EDT Standing labs reviewed, c/w recent lab values. CRP slightly improved. BNP per [facility] [place]. No changes to current POC at this time. MELISSA Vásquez, RN, [facility] Liver Client Support Manager documented in this encounterParkwood Hospital07-24-2025 History of Present illness Narrative* Say Maldonado RPh - 11/07/2024 10:42 AM EDT [facility] OPAT Documentation Note OPAT Pharmacist Lab [...] RPh 11/07/2024 10:42 AM documented in this encounterParkwood Hospital07-17-2025 Progress note* Result Encounter Note - Eva Dhillon RN - 10/31/2024 2:29 PM EDT Standing labs reviewed, c/w recent lab values. CRP slightly improved. BNP per [facility] [place]. No changes to current POC at this time. MELISSA Vásquez, RN, [facility] Liver Client Support Manager [facility] History of Present illness Narrative* Say Maldonado [facility] - 10/31/2024 12:14 PM EDT Infectious Diseases Outpatient Parenteral Antimicrobial Therapy Pharmacist Review Patient, Loyd Blandon ([id number]), was reviewed by an OPAT pharmacist and [...] any questions, please contact Mercedez Tobar at [phone] or Jeanne Maldonado (ChungYun) at [phone]. Say Maldonado RPh 10/31/2024 12:15 PM * Say Maldonado RPh - 10/31/2024 12:14 PM EDT [facility] OPAT Documentation Note Home Health Agency Name: [facility] Phone #: [phone] Vascular Access: PICC Say Maldonado RPh 10/31/2024 12:18 PM documented in this encounterParkwood Hospital07-09-2025 History of Present illness Narrative* Jennie Nicholson MD - 10/23/2024 11:26 AM EDT [facility] Outpatient Parenteral Antimicrobial Therapy (OPAT) Start Form Patient Info Patient MRN Patient Name Address Date of [id number] Loyd Blandon [facility] [place]on Villanueva [facility] [id number] 1955 Start Date 10/23/2024 Physician Group Cc_main [...] Monitoring Treatment Course Jennie Nicholson MD Address [address] [place] [address] Prescribing Provider's signature - electronically signed by Jennie Nicholson MD on 10/23/24 at 11:28AM documented in this encounterParkwood Hospital06-23-2025 History and physical note * Carina Ziegler RN - 10/07/2024 4:10 PM EDT Was called by Dr Dias at [facility] and she spoke with LINDA Kathy Ryan CNP about pt c/o slurred speech, sob, fluid overload and plan for pt to be admitted back to for further evaluation and w/u. Carina Ziegler RN (Molly), BSN, [facility] Liver Client Support Manager [facility] History and physical note* Carina Ziegler RN - 10/07/2024 4:10 PM EDT Was called by Dr Dias at [facility] and she spoke with LINDA Kathy Ryan CNP about pt c/o slurred speech, sob, fluid overload and plan for pt to be admitted back to for further evaluation and w/u. Carina Ziegler RN (Molly), BSN, [facility] Liver Client Support Manager documented in this encounterParkwood Hospital06-23-2025 History of Present illness Narrative* Kathy Ryan APRN.CNP - 10/07/2024 3:57 PM EDT Pathology findings from liver biopsy dated 09/09/24 reviewed at Pathology Conference and confirms the diagnoses of ALD cirrhosis, moderately differentiated HCC (see below). AFP: 0-20 (last AFP 2.56) Microvascular Invasion: No Number of viable tumors on explant pathology: 1 Size of largest viable tumor on explant pathology (cm): 1.4 Calculated Silvana Score: 1 RETREAT score: 1 Surveillance recommendation: MRI abdomen with contrast, non-contrast CT chest, and serum AFP every 6 months for 3 years, then AFP alone every 6 months until 5 years post-transplantation. Kathy Ryan APRN.CNP October 01, 2024 documented in this encounterParkwood Hospital06-23-2025 History of Present illness Narrative* Kaylen Ladd RT(Shannon) - 10/07/2024 3:00 PM EDT Radiology Service Progress Note PATIENT NAME: Loyd [...] PATIENT PRESENTS WITH AN IMPLANTABLE OR ATTACHED WORKING SUPERVISOR: No RADIOLOGY DEPARTMENT: CT; Exam(s) Completed: Abdomen/Pelvis and Brain PERIPHERAL IV DATA: Not applicable SIGNED BY: RT Rob(R) October 07, 2024 2:54 PM documented in this encounterParkwood Hospital06-23-2025 NoteHNO ID: [id number] Author: KAYLEN LADD RT(R) Service: Radiology Author Type: Transmission And Coordination Engineer Type: Progress Notes Filed: 10/07/2024 14:55 Note [...] PATIENT PRESENTS WITH AN IMPLANTABLE OR ATTACHED WORKING SUPERVISOR: No RADIOLOGY DEPARTMENT: CT; Exam(s) Completed: Abdomen/Pelvis and Brain PERIPHERAL IV DATA: Not applicable SIGNED BY: RT Rob(R) October 07, 2024 2:54 PMAMcKay-Dee Hospital [id number] Telephone encounter Note* Telephone Encounter - Carina Ziegler RN - 10/03/2024 5:35 PM EDT I called and updated on orders being entered for staple removal by the [facility] staff and she was upset that it had not been done by our team or the staff at [facility]. I informed her that I will discussthe issue with the staff at our [facility] meeting tomorrow. Carina Ziegler (Molly) RN, BSN, [facility] Liver Client Support Manager [facility] Miscellaneous Notes* Telephone Encounter - Carina Ziegler RN - 10/03/2024 5:35 PM EDT I called and updated on orders being entered for staple removal by the [facility] staff and she was upset that it had not been done by our team or the staff at [facility]. I informed her that I will discussthe issue with the staff at our [facility] meeting tomorrow. Carina Ziegler RN (Molly), BSN, [facility] Liver Client Support Manager * Telephone Encounter - Carina Ziegler RN - 10/03/2024 1:36 PM EDT I have called to [facility] and d/w our SAMPLE COLLECTOR about the orders for staple and suture removal that she d/w them on Monday. Carina Ziegler RN (Molly), BSN, [facility] Liver Client Support Manager * Telephone Encounter - Mary Underwood - 10/03/2024 8:59 AM EDT Fabaina called regarding speaking with an [place] that stated the pt's sutures should come out, but chayito spoke with the nurses at the rehab center stated that they do not have nay orders. . Requesting a return call from the pharmacy care coordinator. Please call Fabiana at [phone]. Mary Blackman documented in this encounterParkwood Hospital06-19-2025 Telephone encounter Note * Telephone Encounter - Carina Ziegler RN - 10/03/2024 1:36 PM EDT I have called to [facility] and d/w our SAMPLE COLLECTOR about the orders for staple and suture removal that she d/w them on Monday. Carina Ziegler RN (Molly), BSN, [facility] Liver Client Support Manager [facility] Telephone encounter Note* Telephone Encounter - Mary Underwood - 10/03/2024 8:59 AM EDT Fabiana called regarding speaking with an [place] that stated the pt's sutures should come out, but chayito spoke with the nurses at the rehab center stated that they do not have nay orders. . Requesting a return call from the pharmacy care coordinator. Please call Fabiana at [phone]. Mary Blackman [facility]06-18-2025 Telephone encounter Note* Telephone Encounter - Barbara Bella - 10/02/2024 3:33 PM EDT Accidentally routed to [facility]. I re-routed to [employer] so they can work wt this request [facility]-18[facility] Miscellaneous Notes* Telephone Encounter - Barbara Bella - 10/02/2024 3:33 PM EDT Accidentally routed to [facility]. I re-routed to [employer] so they can work wt this request documented in this encounterParkwood Hospital06-17-2025 Progress note* Result Encounter Note - Carina Ziegler RN - 10/01/2024 2:38 PM EDT Reviewed liver transplant results and stable-r/w team at [facility] f/u call today Carina Ziegler RN (Molly), BSN, [facility] Liver Client Support Manager [facility] Miscellaneous Notes* Result Encounter Note - Carina Ziegler RN - 10/01/2024 2:38 PM EDT Reviewed liver transplant results and stable-r/w team at [facility] f/u call today Carina Ziegler RN (Molly), BSN, [facility] Liver Client Support Manager documented in this encounterParkwood Hospital06-04-2025 Telephone encounter Note * Telephone Encounter - Carina Ziegler RN - 09/18/2024 11:42 AM EDT I spoke with , and set up DC teaching for Monday at 1:30pm in his room. She stated he didn't seem ready for dc as he was still foggy/memory issues and not really ambulating. I will update the team as well and will keep appt for dc education teaching for this Monday. Carina Ziegler RN (Molly), BSN, [facility] Liver Client Support Manager [facility] Miscellaneous Notes* Telephone Encounter - Carina Ziegler RN - 09/18/2024 11:42 AM EDT I spoke with , and set up DC teaching for Monday at 1:30pm in his room. She stated he didn't seem ready for dc as he was still foggy/memory issues and not really ambulating. I will update the team as well and will keep appt for dc education teaching for this Monday. Carina Ziegler RN (Molly), BSN, [facility] Liver Client Support Manager documented in this encounterParkwood Hospital05-27-2025 History of Present illness Narrative* Jadyn Vázquez RN - 09/10/2024 8:35 AM EDT DONOR ID: [id number] MATCH RUN: [id number] Type of Donor: DCD At risk donor: No Liver pumped: OrganOx TRANSPLANT SEROLOGIES: CMV IgG: Donor Positive/ Recipient Negative 04-29-24 EBV IgG: Donor Positive/ Recipient Positive Donor has tested positive for COVID: No Jadyn Vázquez RN, BSN, [facility] Liver Client Support Manager documented in this encounterParkwood Hospital05-25-2025 Note SARS-COV-2 (AGENT OF COVID-19) RNA: Not detected [id number] Telephone encounter Note* Telephone Encounter - Virginia Blevins RRT - 09/08/2024 1:55 PM EDT UNOS: [id number] Match ID: [id number] Called and informed the patient of a potential liver offer per Dr. Weir. Explained to the patient that per Dr. Weir the liver offer is from a Donation after Circulatory (DCD) donor. Explained the difference between a DCD organ donor and a Standard Criteria Donor (SCD). The patient acknowledged an understanding and an opportunity was provided to ask questions. Informed the patient that thereis an increased risk in biliary complications following transplant with this type of donation. The patient was informed that he will be closely monitored for these complications.The patient agreed [facility]. Explained the [...] the procedure and may be from a donororgan that has risk factors present for undetected [...] transplant. Karnofsky Score: 30% Virginia Blevins RRT [facility]05-25-2025 Miscellaneous Notes* Telephone Encounter - Virginia Blevins RRT - 09/08/2024 1:55 PM EDT UNOS: [id number] Match ID: [id number] Called and informed the patient of a potential liver offer per Dr. Weir. Explained to the patient that per Dr. Weir the liver offer is from a Donation after Circulatory (DCD) donor. Explained the difference between a DCD organ donor and a Standard Criteria Donor (SCD). The patient acknowledged an understanding and an opportunity was provided to ask questions. Informed the patient that thereis an increased risk in biliary complications following transplant with this type of donation. The patient was informed that he will be closely monitored for these complications.The patient agreed tocome [facility]. Explained the [...] the procedure and may be from a donororgan that has risk factors present for undetected [...] 30% Virginia Blevins RRT documented in this encounterParkwood Hospital05-15-2025 Telephone encounter Note * Telephone Encounter - Yesica Bright RN - 08/29/2024 4:10 PM EDT Spoke with Loyd Blandon's Fabiana, advised that his case was discussed and approved pendingcolonoscopy, EGD, and repeat MRI liver at liver transplant selection committee on August 28, 2024. Yesica Bright RN [facility]-15-2025 Miscellaneous Notes* Telephone Encounter - Yesica Bright RN - 08/29/2024 4:10 PM EDT Spoke with Loyd Blandon's Fabiana, advised that his case was discussed and approved pendingcolonoscopy, EGD, and repeat MRI liver at liver transplant selection committee on August 28, 2024. Yesica Bright RN documented in this encounterParkwood Hospital05-14-2025 History of Present illness Narrative* Venus Aden DMD - 08/28/2024 3:26 PM EDT STAFF NOTE: See inpatient note for this encounter on 08/28/2024. Venus Aden DMD * Kaylen Hale DMD - 08/28/2024 10:23 AM EDT See inpatient note for this encounter. 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 The patient's medication profile was reviewed and there are no identified medication issues that would preclude transplant inthis patient. Current Facility-Administered Medications on File Prior [...] chew Take 2tablets by mouth once daily. Araceli Mccoy, [facility] Clinical Specialist Pager: [phone] documented in this encounterParkwood Hospital05-13-2025 History of Present illness Narrative* Lis Larsen LISW - 08/27/2024 2:13 PM EDT Orthotopic Liver Transplant (OLT) Urgent Inpatient Psychosocial Evaluation Patient: Loyd Blandon Date Evaluated: August 27, 2024 Patient Loyd Blandon was seen for an urgent inpatient eval/follow up on August 27, 2024. SW conducted a follow up psychosocial evaluation with patient on this date. Patient unable to engage as he was being moved to the ICU. Please see separate inpatient note from this date for full documentation of the assessment, recommendations and plan. WILBERT Norris-S, [facility] August 27, 2024 2:13 PM documented in this encounterParkwood Hospital05-13-2025 Telephone encounter Note * Telephone Encounter - Yesica Bright RN - 08/27/2024 10:39 AM EDT The following information has been provided/discussed with the patient/family during Shared MedicalAppointment education class: Informed Consent for Organ Transplant Program Participation version November 03, 2022. SRTR information provided and questions answered. Informed patient to call pharmacy care coordinator with any questions. UNOS information regarding multiple listings for organ transplantation Evaluation process including presentation to selection committee and listing criteria Surgical procedure, including post-operative management, hospitalization, immunosuppressive medications and their side effects (including the risk for hypertension, diabetes, kidney problems and cancers) and mcfp follow up after transplant. Possibility of recurrent [...] was also addressed Patient's was provided with [facility] information sheet regarding transplantation of Hepatitis [...] could potentially be read by a third democrat when sent through the internet (or cellular phone) and desires to receive his protected health information by unencrypted email (or text). INFORMED CONSENT Loyd Blandon Medical Record: [id number] Informed consent for Organ Transplant Program Participation Informed Consent for Organ Transplant Program Participation version November 03, 2022 was provided topatient's . The risks, benefits, alternatives and anticipated [...] Yesica Bright RN In Department: TRANSPLANT CENTER [facility]-13-2025 Miscellaneous Notes* Telephone Encounter - Yesica Bright RN - 08/27/2024 10:39 AM EDT The following information has been provided/discussed with the patient/family during Shared MedicalAppointment education class: Informed Consent for Organ Transplant Program Participation version November 03, 2022. SRTR information provided and questions answered. Informed patient to call pharmacy care coordinator with any questions. UNOS information regarding multiple listings for organ transplantation Evaluation process including presentation to selection committee and listing criteria Surgical procedure, including post-operative management, hospitalization, immunosuppressive medications and their side effects (including the risk for hypertension, diabetes, kidney problems and cancers) and terminal superintendent follow up after transplant. Possibility of recurrent [...] was also addressed Patient's was provided with [facility] information sheet regarding transplantation of Hepatitis [...] could potentially be read by a third democrat when sent through the internet (or cellular phone) and desires to receive his protected health information by unencrypted email (or text). INFORMED CONSENT Loyd Blandon Medical Record: [id number] Informed consent for Organ Transplant Program Participation Informed Consent for Organ Transplant Program Participation version November 03, 2022 was provided topatient's . The risks, benefits, alternatives and anticipated [...] In Department: TRANSPLANT CENTER documented in this encounterParkwood Hospital05-08-2025 Telephone encounter Note * Telephone Encounter - Marce Gaitan RN - 08/22/2024 3:57 PM EDT Nurse called pt Fabiana Jung confirmed the patient's name and date of . Reported Symptoms: Sleeps all day; barely sleeps at night Lethargic, confused, and disoriented Oriented to location but not to time (does not know the year) Agitated and unable to focus (e.g., cannot watch TV) Staring off into space Unable to navigate stairs Significant ascites; missed scheduled paracentesis in [place] on Monday and may miss the upcomingone tomorrow New-onset ankle edema; compression socks are ineffective Plan: Nurse strongly advised that the patient go to the Emergency Department ([facility] ED) due to worsening sx Fabiana agreed with the plan and will bring the patient to the [facility] ED. Patient/family is aware of transplant board (TB) recommendations: MRI scheduled for 2024 (order needs to be entered; send Contests4Causes message) Presentation to the LTSC committee pending Fabiana agreeable to plan - she will take him to the ED for immediate care Marce Gaitan RN August 22, 2024 4:14 PM [facility] Miscellaneous Notes* Telephone Encounter - Marce Gaitan RN - 08/22/2024 3:57 PM EDT Nurse called pt Fabiana Torreson confirmed the patient's name and date of . Reported Symptoms: Sleeps all day; barely sleeps at night Lethargic, confused, and disoriented Oriented to location but not to time (does not know the year) Agitated and unable to focus (e.g., cannot watch TV) Staring off into space Unable to navigate stairs Significant ascites; missed scheduled paracentesis in [place] on Monday and may miss the upcomingone tomorrow New-onset ankle edema; compression socks are ineffective Plan: Nurse strongly advised that the patient go to the Emergency Department ([facility] ED) due to worsening sx Fabiana agreed with the plan and will bring the patient to the [facility] ED. Patient/family is aware of transplant board (TB) recommendations: MRI scheduled for 2024 (order needs to be entered; send Eyeonplayhart message) Presentation to the LTSC committee pending Fabiana agreeable to plan - she will take him to the ED for immediate care Marce Gaitan RN August 22, 2024 4:14 PM * Telephone Encounter - Jaron Chinchilla - 08/22/2024 3:07 PM EDT called in Appears very anxious/nervous States he is failing can barely walk and breathing slow Please review and advise documented in this encounterPark[facility] Telephone encounter Note * Telephone Encounter - Jaron Chinchilla - 08/22/2024 3:07 PM EDT called in Appears very anxious/nervous States he is failing can barely walk and breathing slow Please review and advise [facility] Nurse Note* Rosalba Zhu RN - 08/20/2024 1:38 PM EDT GI Pre-Procedure Spoke with patient: Yes Confirmed [...] preparation prior to procedure:Yes, and they verbalized theirunderstanding of instructions given Patient instructed to have family/friend present for procedure transport home:Patient/patient regional sales representative was told that if they do not have a responsible adult accompany them to their procedure; and remain in the endoscopy area until they are discharged; that their procedure cannot be done with s edation or anesthesia and may be cancelled. and They verbalized their understanding and agree to have a responsible adult accompany the patient to their procedure and remain in the endoscopy area. Any barriers to Patient learning: Patient/Patient Salesperson Floor Coverings responded appropriately on phone. Type of instruction given: Verbal by telephone contact. Roaslba Zhu RN [facility] Nurse Note* Rosalba Zhu RN - 08/20/2024 1:38 PM EDT GI Pre-Procedure Spoke with patient: Yes Confirmed [...] preparation prior to procedure:Yes, and they verbalized theirunderstanding of instructions given Patient instructed to have family/friend present for procedure transport home:Patient/patient regional sales representative was told that if they do not have a responsible adult accompany them to their procedure; and remain in the endoscopy area until they are discharged; that their procedure cannot be done with s edation or anesthesia and may be cancelled. and They verbalized their understanding and agree to have a responsible adult accompany the patient to their procedure and remain in the endoscopy area. Any barriers to Patient learning: Patient/Patient Salesperson Floor Coverings responded appropriately on phone. Type of instruction given: Verbal by telephone contact. Rosalba Zhu RN documented in this encounterParkwood Hospital05-05-2025 History of Present illness Narrative* JOEL Patel - 08/19/2024 11:00 AM EDT Images from the original note [...] the couch. Describes pain as stabbing pain, 8-9/10. He is currently on the liver transplant [...] thoracic spine, they are to contact the surgeontoday to see if he can be re-evaluated. [...] hyperglycemia, without long-term current use of insulin ([facility]) - Microalbumin / creatinine, urine ratio; Future Ordered urine sample for pt to have completed at his convenience. No follow-ups on file. documented in this encounterSelect Specialty [id number] Telephone encounter Note* Telephone Encounter - Virginia Rodríguez RN - 08/14/2024 12:44 PM EDT Will have to speak with GI team, unable to assist per cardiology. [facility]04-30[facility] Miscellaneous Notes* Telephone Encounter - Virginia Rodríguez RN - 08/14/2024 12:44 PM EDT Will have to speak with GI team, unable to assist per cardiology. documented in this encounterParkwood Hospital04-28-2025 Instructions* Patient Instructions* Dimtri Garg MD - 08/12/2024 3:20 PM EDT COLONOSCOPY [...] with insulin, diabetic pills, or other injectable medicationsdo not take your REGULAR dose after midnight on the day of your procedure. If you are taking any other types of insulin such as Lantus, Humalog, NPH (long- acting insulin), or70/30 insulin, take half your normal dose the [...] medications (including aspirin, antibiotics, water pills / diureticslike Lasix or Metolozone, blood pressure meds, etc.) [...] no-pulp) Popsicles or hard candy BOWEL PREPARATION (GOLYTELY/NULYTELY/TRILYTE/COLYTE) Split Dosing Bowel Prep: This means drinking your bowel prep in two doses. Split dosing helps cleanyour colon better and makes it less likely [...] that slow bowel emptying (narcotics, gabapentin, anticholinergic medicationsetc.) A: Contact your physician as you will [...] am on dialysis? A: Please consult your donation specialist prior to scheduling to get instructions pertinent [...] rest of the day. documented in this encounterParkwood Hospital04-16-2025 Telephone encounter Note * Telephone Encounter - Brittaney Mueller - 07/31/2024 1:04 PM EDT External lab orders from [facility] received and scanned. [facility]04-16-[facility] Miscellaneous Notes* Telephone Encounter - Brittaney Mueller - 07/31/2024 1:04 PM EDT External lab orders from [facility] received and scanned. documented in this encounterParkwood Hospital04-15-2025 Telephone encounter Note * Telephone Encounter - Lex Galo MD - 07/30/2024 2:53 PM EDT RADIOLOGIST REQUEST / APPROVAL FORM STAFF RADIOLOGIST: [...] for this procedure: low risk. Reference from [employer] Painting Trades Worker: [email or web address] STAFF SIGNATURE: Lex Galo MD DATE: July 30, 2024 TIME: 2:54 PM [facility] Work Phone: 1(450) 479-254804-15-2025 Miscellaneous Notes* Telephone Encounter - Lex Galo MD - 07/30/2024 2:53 PM EDT RADIOLOGIST REQUEST / APPROVAL FORM STAFF RADIOLOGIST: [...] for this procedure: low risk. Reference from [facility] Painting Trades Worker: [email or web address]/[email or web address] STAFF SIGNATURE: Lex Galo MD DATE: July 30, 2024 TIME: 2:54 PM * Telephone Encounter - Jeanne Jackson RN - 07/30/2024 11:08 AM EDT BX. COORDINATOR INFORMATION LAB RESULTS: INR (no [...] ALLERGIES No Known Allergies IMAGES: available in [facility] MRI 07/05/24 GUIDELINES FOR HOLDING ANTI-PLATELET AND ANTI- COAGULATION THERAPY: N/A NURSE SIGNATURE: Jeanne Jackson RN DATE: July 30, 2024 TIME: 11:08 AM * Telephone Encounter - Nubia Larsen - 07/30/2024 10:08 AM EDT RADIOLOGY CALL CENTER INTAKE BLASTING CONTRACT MINER: [id number] EXT: DATE: 07/30/2024 TIME: 10:08 am TRACKING #. [id number] REQUESTING PERSON: Meena PHONE/PAGER: [phone] REQUESTING STAFF: Derrick Harris PHONE/PAGER: [phone] SPECIFICS OF THE REQUEST: (Please be as detailed as possible. If request is lymph node biopsy, specify LOCATION of the node if possible): T-10 ot T12 Vertebrae (For example: biopsy liver mass or biopsy pelvic lymph node ) SPECIAL REQUESTS: TISSUE SAMPLE, LABWORK: N/A -Fine needle aspiration (FNA), core biopsy, no preference, unsure, specific processing request for pathology (For example: send for ER, VT, HER2/kacey or possible lymphoma send in RPMI [...] (If the imaging was obtained outside the [facility] system, then it needs to be submitted for review prior to approval.) Note to all persons requesting biopsies: All biopsy requests will be scheduled as quickly as possible, based on the clinical urgency, availability of appointment times, the need to hold anti-thrombolytic therapy (aspirin, blood thinners) and the patient s schedule, including the need for an available transport driver. If a percutaneous biopsy or drainage is not felt to be safe or an alternative method for establishing a diagnosis is possible, this will be discussed directly with the requesting physician. documented in this encounterParkwood Hospital04-15-2025 Telephone encounter Note * Telephone Encounter - Jeanne Jackson RN - 07/30/2024 11:08 AM EDT BX. COORDINATOR INFORMATION LAB RESULTS: INR (no [...] ALLERGIES No Known Allergies IMAGES: available in [facility] 07/05/24 GUIDELINES FOR HOLDING ANTI-PLATELET AND ANTI- COAGULATION THERAPY: N/A NURSE SIGNATURE: Jeanne Jackson RN DATE: July 30, 2024 TIME: 11:08 AM [facility]04-[facility] Telephone encounter Note* Telephone Encounter - Nubia Larsen - 07/30/2024 10:08 AM EDT RADIOLOGY CALL CENTER INTAKE BLASTING CONTRACT MINER: [id number] EXT: DATE: 07/30/2024 TIME: 10:08 am TRACKING #. [id number] REQUESTING PERSON: Meena PHONE/PAGER: [phone] REQUESTING STAFF: Derrick Harris PHONE/PAGER: [phone] SPECIFICS OF THE REQUEST: (Please be as detailed as possible. If request is lymph node biopsy, specify LOCATION of the node if possible): T-10 ot T12 Vertebrae (For example: biopsy liver mass or biopsy pelvic lymph node ) SPECIAL REQUESTS: TISSUE SAMPLE, LABWORK: N/A -Fine needle aspiration (FNA), core biopsy, no preference, unsure, specific processing request for pathology (For example: send for ER, VT, HER2/kacey or possible lymphoma send in RPMI [...] (If the imaging was obtained outside the [facility] system, then it needs to be submitted for review prior to approval.) Note to all persons requesting biopsies: All biopsy requests will be scheduled as quickly as possible, based on the clinical urgency, availability of appointment times, the need to hold anti-thrombolytic therapy (aspirin, blood thinners) and the patient s schedule, including the need for an available transport driver. If a percutaneous biopsy or drainage is not felt to be safe or an alternative method for establishing a diagnosis is possible, this will be discussed directly with the requesting physician. [facility] Telephone encounter Note* Telephone Encounter - Meena Leyva - 07/30/2024 10:05 AM EDT Please disregard. I've spoken with the nurse about this and the orders are correct. [facility]04-[facility] Miscellaneous Notes* Telephone Encounter - Meena Leyva - 07/30/2024 10:05 AM EDT Please disregard. I've spoken with the nurse about this and the orders are correct. * Telephone Encounter - Meena Leyva - 07/30/2024 9:52 AM EDT Per patient's spouse, IR stated that the biopsy orders were not placed correctly. documented in this encounterParkwood Hospital04-15-2025 Telephone encounter Note * Telephone Encounter - Meena Leyva - 07/30/2024 9:52 AM EDT Per patient's spouse, IR stated that the biopsy orders were not placed correctly. [facility]04-10-[facility] History of Present illness Narrative* Derrick Harris MD - 07/25/2024 4:50 PM EDT Radiation Oncology - New Patient/Consult Note PATIENT NAME: Loyd Blandon PATIENT REQUESTING PROVIDER: Dr. Garg. DIAGNOSIS: 68 year old male with decompensated [...] requesting physician via US mail. Mr. Loyd Blandno is a very pleasant 68-year-old gentleman presenting [...] was initiating a liver transplant workup at [facility]. During imaging with a CT scan [...] KPS 70. Denies back pain or neurological symptomsassociated with his spine lesion, does have some [...] chew Take 2tablets by mouth once daily. PAST MEDICAL HISTORY [...] lesion meeting criteria for hepatocellular carcinoma. If thiswere an isolated finding in a patient going [...] limited treatment options without transplant we discussed pro ceeding with CT-guided biopsy of the spine lesion for more definitive diagnosis. Reviewed that finding of metastases (hepatocellular carcinoma or potentially other primary tumor) would disqualify himfrom transplant, however and able planning for appropriate treatment directed by tumor type and histology. Benign biopsy findings would not absolutely rule out possibility of malignancy, however would leave further room for discussion with transplant team regarding potential additional workup and options. Patient demonstrates understanding and agreement with biopsy. Will reach out to interventional radiology to schedule. Patient would like to do at [facility] if feasible. Follow-up with results. Signed by: Derrick Harris MD Medical Decision Making: Problems: High: Illness/injury w/ threat to life/body function Risk: High: High risk from testing/treatment Medical Decision Making Level: 5 - High cc: Sanjay Robledo II, MD [address] [facility] [address] [place] [address] Dmitri Garg [address] [facility] [id number] documented in this encounterParkwood Hospital04-10-2025 History of Present illness Narrative* Dmitri Garg MD - 07/25/2024 1:05 PM EDT NAME: Loyd Blandon AGE: [age] year old PRESENTING COMPLAINT & HISTORY Loyd Blandon is a 69 year old male with PMH of alcohol associated cirrhosis with pHTN includingascites, HHT, HE and large EV, in addition to Recinos's esophagus, GERD, s/p cholecystectomy, s/p BCC 2017 presenting to Liver Tumor clinic after recent diagnosis of HCC. I initially evaluated patient in 04/2024 in pre-LT clinic for newly decompensated cirrhosis. MRI Liver obtained in 01/2024 at [facility] had noted the following: FINDINGS: LIVER: Small heterogeneous liver with nodular margins. Subtle masslike area within posterior right hepatic lobe, 3.9 x 3.7 cm in axial plane seen only on the postcontrast images. No corresponding findings on other sequences or planes. Of note, this lesion was initially commented on a CT scan at [facility] in 09/2023, but the subsequent MR sequences from 10/2023 did not have proper contrast administration, so the lesion was not able to be well evaluated. A follow-up CT liver (triple phase) done at [facility] in 04/2024 noted the followin.0 cm [...] bony lesion in T10-T12 region. MRI spine ([facility], 07/05/2024): Bone marrow signal/fracture: Marrow replacing [...] started on Lasix 60 mg q12h and Ki nolactone 150 mg daily, and started to need [...] gain. He continues to need serial paracentesis [id number]. Last paracentesis was in late June 2024 [...] month surveillance MR scheduled for 08/15/2024, will re- present case to LTB after results are available -Thoracic spine lesion to be evaluated with possible biopsy pending IR evaluation. Reassuring that it has been chronic in nature and visualized as far back as Summer 2023. Return to office in 1 month. During this patient visit I have spent approximately 45 minutes out of 60 in counseling regarding test results and coordinating care. Dmitri Garg MD July 25, 2024 1:05 PM documented in this encounterParkwood Hospital03-31-2025 Telephone encounter Note * Telephone Encounter - HenryIleana - 07/15/2024 8:30 AM EDT Patient labs are uploaded into patient's chart for review. Scanned in under External Labs/Misc. Labs [facility]03-31-[facility]25 Miscellaneous Notes* Telephone Encounter - HenryIleana - 07/15/2024 8:30 AM EDT Patient labs are uploaded into patient's chart for review. Scanned in under External Labs/Misc. Labs documented in this encounterParkwood Hospital03-27-2025 Telephone encounter Note * Telephone Encounter - Yesica Bright RN - 07/11/2024 9:37 AM EDT Spoke with Loyd León Blandon and his , advised that his case was discussed and declined at livertransplant selection committee on July 10, 2024. Next step is to follow up with hepatology and oncology teams. Yesica Bright RN [facility]03-27-2025 Miscellaneous Notes* Telephone Encounter - Yesica Bright RN - 07/11/2024 9:37 AM EDT Spoke with Loyd León Blandon and his , advised that his case was discussed and declined at livertransplant selection committee on July 10, 2024. Next step is to follow up with hepatology and oncology teams. Yesica Bright RN documented in this encounterParkwood Hospital03-24-2025 Telephone encounter Note * Telephone Encounter - Yesica Bright RN - 07/08/2024 1:[address] Garg sent nurse the following msg: I reviewed this MRI-it is concerning for spinal metastatic disease. Unfortunately, we will have toclose transplant evaluation and refer patient to radiation and medical oncology... I would recommend we go ahead and present this case and close. Patient and were contacted regarding the above and are aware of the plan to present to for an official OLT evaluation closure. is aware of the oncology referral submitted by Dr. Garg. Appointment schedule reviewed. Yesica Bright RN [facility]03-24-2025 Miscellaneous Notes* Telephone Encounter - Yesica Bright RN - 07/08/2024 1:[address] Garg sent nurse the following msg: I reviewed this MRI-it is concerning for spinal metastatic disease. Unfortunately, we will have toclose transplant evaluation and refer patient to radiation and medical oncology... I would recommend we go ahead and present this case and close. Patient and were contacted regarding the above and are aware of the plan to present to for an official OLT evaluation closure. is aware of the oncology referral submitted by Dr. Garg. Appointment schedule reviewed. Yesica Bright RN documented in this encounterParkwood Hospital03-21-2025 History of Present illness Narrative* Rajiv Blankenship Tech - 07/05/2024 6:30 PM EDT Radiology Service Progress Note PATIENT NAME: Loyd [...] place to prevent falls during this visit? Non- Skid Socks Used, [place] Risk Wristband Applied, Instructed Patient to Call for Help if Needed, Offered Assistance with Transfers/Clothing, and Increased Observations by Caregivers PATIENT GENDER DATA: Assigned male at PATIENT RELEVANT IMPLANT DATA REVIEWED: Yes PATIENT PRESENTS WITH AN IMPLANTABLE OR ATTACHED WORKING SUPERVISOR: No RADIOLOGY DEPARTMENT: MR; Exam(s) Completed: Spine: Thoracic spine PERIPHERAL IV DATA: Not applicable SIGNED BY: Rajiv Blankenship RT MR July 05, 2024 6:13 PM documented in this encounterParkwood Hospital03-21-2025 NoteName: Loyd Blandon Patient presents for a Paracentesis. Indication for Procedure: Ascites INFORMED CONSENT Loyd Blandon Medical Record: [id number] Procedure: Paracentesis with US marking The risks, benefits and anticipated outcomes of the procedure, the risks and benefits of the alternatives to the procedure and the roles and tasks of the personnel to be involved were discussed with the patient and the patient consents to the procedure and agrees to proceed. I verify that I personally verified or obtained Lyod Blandon's consent. Elsy Johnson APRN.CNP July 05, 2024 1:23 PM Dept of GASTROENTEROLOGY UNIVERSAL [employer]OTOCOL / SAFETY CHECKLIST Procedure to be performed: Paracentesis with US marking Sign in Communication: Completed Time Out: Team Confirms the Correct Patient, Correct Procedure, Correct Site and Site Marking, Correct Position. Affirmation of Time Out: YES Sign Out Discussion: Completed Procedure performed by Esly Johnson APRN.CNP Medication: 2% Lidocaine 10cc The [...] associated with the procedure. Elsy Johnson APRN.CNP [id number] Nurse Note* Raquel Rodrigues RN - 07/05/2024 10:36 AM EDT THE FOLLOWING WAS EVALUATED Motivation To Learn: [...] was removed via paracentesis. Orders received from [facility] for IV placement and albumin infusion. A #22 Gauge angio cath was placed in the Right AC. 50 grams of albumin was infused per protocol and the IV was discontinued post infusion. Raquel Rodrigues RN [facility]03-21-2025 Nurse Note* Raquel Rodrigues RN - 07/05/2024 10:36 AM EDT THE FOLLOWING WAS EVALUATED Motivation To Learn: [...] was removed via paracentesis. Orders received from [facility] for IV placement and albumin infusion. A #22 Gauge angio cath was placed in the Right AC. 50 grams of albumin was infused per protocol and the IV was discontinued post infusion. Raquel Rodrigues RN documented in this encounterParkwood Hospital03-21-2025 Nurse procedure note* Sedation Documentation - Raquel Rodrigues RN - 07/05/2024 10:30 AM EDT Albumin 4 [facility] Nurse procedure note* Sedation Documentation - Raquel Rodrigues RN - 07/05/2024 10:30 AM EDT Needle out; 6.4L out [facility]-21-20[facility] Miscellaneous Notes* Sedation Documentation - Raquel Rodrigues RN - 07/05/2024 10:30 AM EDT Albumin 4 * Sedation Documentation - Raquel Rodrigues RN - 07/05/2024 10:30 AM EDT Needle out; 6.4L out * Sedation Documentation - Raquel Rodrigues RN - 07/05/2024 10:21 AM EDT Albumin 3 * Sedation Documentation - Raquel Rodrigues RN - 07/05/2024 10:13 AM EDT Bottle 5; albumin 2 * Sedation Documentation - Rqauel Rodrigues RN - 07/05/2024 10:07 AM EDT Albumin 1 * Sedation Documentation - Raquel Rodrigues RN - 07/05/2024 9:47 AM EDT Bottle 4 * Sedation Documentation - Steffany Ley RN - 07/05/2024 9:37 AM EDT Bottle 3 * Sedation Documentation - Raquel Rodrigues RN - 07/05/2024 9:25 AM EDT Bottle 2 * Sedation Documentation - Raquel Rodrigues RN - 07/05/2024 9:08 AM EDT Needle in; bottle 1 documented in this encounterParkwood Hospital03-21-2025 Nurse procedure note* Sedation Documentation - Raquel Rodrigues RN - 07/05/2024 10:21 AM EDT Albumin 3 [facility] Nurse procedure note* Sedation Documentation - Raquel Rodrigues RN - 07/05/2024 10:13 AM EDT Bottle 5; albumin 2 [facility] Nurse procedure note* Sedation Documentation - Raquel Rodrigeus RN - 07/05/2024 10:07 AM EDT Albumin 1 [facility] Nurse procedure note* Sedation Documentation - Raquel Rodrigues RN - 07/05/2024 9:47 AM EDT Bottle 4 [facility] Nurse procedure note* Sedation Documentation - Steffany Ley RN - 07/05/2024 9:37 AM EDT Bottle 3 [facility] Nurse procedure note* Sedation Documentation - Raquel Rodrigues RN - 07/05/2024 9:25 AM EDT Bottle 2 [facility] Nurse procedure note* Sedation Documentation - Raquel Rodrigues RN - 07/05/2024 9:08 AM EDT Needle in; bottle 1 [facility]03-[facility]-2025 Telephone encounter Note* Telephone Encounter - Yesica Bright RN - 07/01/2024 2:36 PM EDT Call placed to clarify the need for an admission if PERLITA is noted on repeat CMP. Patient will have labs drawn 07/02/24 locally. All questions answered. Yesica Bright RN [facility]03-17-2025 Miscellaneous Notes* Telephone Encounter - Yesica Bright RN - 07/01/2024 2:36 PM EDT Call placed to clarify the need for an admission if PERLITA is noted on repeat CMP. Patient will have labs drawn 07/02/24 locally. All questions answered. Yesica Bright RN documented in this encounterParkwood Hospital03-10-2025 Telephone encounter Note * Telephone Encounter - RupinderJaron oscar - 06/24/2024 8:58 AM EDT Recent lab results are scanned in under external labs/chemistry Jaron Chinchilla Shoe Clerk ll [facility]03-10-2025 Miscellaneous Notes* Telephone Encounter - RupinderJaron oscar - 06/24/2024 8:58 AM EDT Recent lab results are scanned in under external labs/chemistry Jaron Chinchilla Shoe Clerk ll documented in this encounterParkwood Hospital03-05-2025 Evaluation note* Diagnosis Onset Date Resolution Status Admit Date Cirrhosis acuteMarch 2024 11:48am [facility] Work Phone: 1(118) 809-735203-05-2025 Radiology Diagnostic study [facility] [place] [address] Ultrasound Report Signed Patient: Loyd Blandon MR#: [id number] : 1955 Acct:[id number] Age/Sex: 68 / M ADM Date: 5 Loc: Room: Type: [facility] Attending Dr: Irena Johnson MD Ordering Provider: [...] and local anesthesia with lidocaine, a 5 Guinean centesis catheter was advanced into the peritoneal cavity. Approximately 4700 mL of ascites was drained. The catheter was removed. There were no immediate complications. US/US paracentesis abd w/image IMPRESSION: SUCCESSFUL ULTRASOUND-GUIDED PARACENTESIS. Impression dictated by: Morales Alvarez Jr., Eduardo06/19/2024 3:34 PM Dictation Location: [place] [address] Tech: Blanca Nicolas Transcribed By: ROLAND 06/19/24 1534 Dictated By: Morales Alvarez Jr, DO 06/19/24 1534 Signed By: 06/19/24 1534 [facility]03-05-2025 Telephone encounter Note* Telephone Encounter - Elaina Sotomayor HUC - 06/19/2024 8:23 AM EST Spoke with pt's Fabiana to schedule Thoracentesis 07/05/2024 @ 3:30 pm. [facility]03-05-2025 Miscellaneous Notes* Telephone Encounter - Elaina Sotomayor HUC - 06/19/2024 8:23 AM EST Spoke with pt's Fabiana to schedule Thoracentesis 07/05/2024 @ 3:30 pm. documented in this encounterPark[facility]02-[facility] Telephone encounter Note * Telephone Encounter [...] room locally or to bring him to [facility] Main ER. She was also instructed to call 911 if he experience difficulty breathing. All questions answered. Yesica Bright RN [facility]02-28-2025 Miscellaneous Notes* Telephone Encounter - Yesica [...] room locally or to bring him to [facility] Main ER. She was also instructed to call 911 if he experience difficulty breathing. All questions answered. Yesica Bright RN documented in this encounterParkwood Hospital02-24-2025 Telephone encounter Note * Telephone Encounter - Abner Shankra - 06/10/2024 9:[address] Seals, Please see the below Contests[employer]Causes message and contact patient to advise within 72 hours. Abner Pacheco I scheduled Bill's 2nd shot for today at [facility]. Specifically the [employer] brand and [facility] just called stating [employer] would not approve that brand. [facility] thought maybe if you requested approval from [employer] directly it may be approved. It is $190 which is not something we want to pay. He will be getting his RSV today. [facility]02-24-2025 Miscellaneous Notes* Telephone Encounter - Abner Shankar - 06/10/2024 9:[address] Seals, Please see the below Contests[employer]Causes message and contact patient to advise within 72 hours. Abner Eng Puff Ironer I scheduled Bill's 2nd shot for today at [facility]. Specifically the [employer] brand and [facility] just called stating [employer] would not approve that brand. [facility] thought maybe if you requested approval from [employer] directly it may be approved. It is $190 which is not something we want to pay. He will be getting his RSV today. documented in this encounterParkwood Hospital02-22-[facility] History of Present illness Narrative* Brad [...] PATIENT PRESENTS WITH AN IMPLANTABLE OR ATTACHED WORKING SUPERVISOR: No RADIOLOGY DEPARTMENT: MR; Exam(s) Completed: Spine: Cervical spine, Thoracic spine, and Lumbar spine PERIPHERAL IV DATA: Site assessment: Clean,Dry and Intact, Site disposition Discontinued SIGNED BY: RT Ginger(R) June 08, 2024 2:10 PM documented in this encounterParkwood Hospital02-22-2025 History of Present illness Narrative* Akua [...] 2024 TIME: 12:17 PM documented in this encounterParkwood Hospital02-20-2025 Telephone encounter Note * Telephone Encounter [...] MD Colton Steen MD Siuba, Matthew, MD [facility]02-20-2025 Miscellaneous Notes* Telephone Encounter - Yesica [...] to proceed with liver transplantation. Attendees: Kalyn George RN, BSN MD Lovely Varela Vaidehi, MD Annick Haouzi-Judenherc, MD Amy McFarlin, RN, BSN MD Ceci Dale, RN, MSN Gatito Blanchard, LEO, BSN MD Yesica Lentz RN, BSN MD Colton Steen MD Siuba, Matthew, MD documented in this encounterParkwood Hospital02-14-2025 Nurse Note* Mis Hong RN - [...] MATERIAL: Procedure Discharge Instructions REFERRAL (RECOMMENDATION): None [facility]02-14-2025 Nurse Note* Mis Hong RN - [...] RN In Department: GASTROENTEROLOGY documented in this encounterParkwood Hospital02-14-2025 Nurse procedure note* Sedation Documentation - Mis Hong RN - 05/31/2024 9:54 AM EST Bottle 3 [facility]02-14-2025 Miscellaneous Notes* Sedation Documentation - Mis Hong RN - 05/31/2024 9:54 AM EST Bottle 3 * Sedation Documentation - Mis Hong RN - 05/31/2024 9:36 AM EST Bottle 2 documented in this encounterParkwood Hospital02-14-2025 Nurse procedure note* Sedation Documentation - Mis Hong RN - 05/31/2024 9:36 AM EST Bottle 2 [facility]02-14-2025 Nurse Note* Mis Hong RN - [...] By: Mis Hong RN In Department: GASTROENTEROLOGY [facility]02-14-[facility]25 History of Present illness Narrative* Dada Hoffman RRT - 05/31/2024 8:19 AM EST PULM FUNCTION: Provider: Cheri Guido MD Spirometry: 1 DLCO: 1 documented in this encounterParkwood Hospital02-13-2025 Telephone encounter Note * Telephone Encounter [...] Carranza RN, RN. In Department of CARDIOLOGY. [facility]02-13-2025 Miscellaneous Notes* Telephone Encounter - Pema [...] In Department of CARDIOLOGY. documented in this encounterParkwood Hospital02-13-2025 Telephone encounter Note * Telephone Encounter - Yesica Bright RN - 05/30/2024 12:14 PM EST Call placed per Dr. Garg's request to get additional information on his groin area, and pt report that the he bulge is located on the right side of his pubic area, tender if pushed, soft and squishy. The above information was relayed to Dr. Garg. Yesica Bright RN' [facility]02-13-2025 Miscellaneous Notes* Telephone Encounter - Yesica Bright RN - 05/30/2024 12:14 PM EST Call placed per Dr. Garg's request to get additional information on his groin area, and pt report that the he bulge is located on the right side of his pubic area, tender if pushed, soft and squishy. The above information was relayed to Dr. Garg. Yesica Bright RN' documented in this encounterParkwood Hospital02-12-2025 Telephone encounter Note * Telephone Encounter - Raymond Odell - 05/29/2024 10:33 AM EST Sent urgent request to the scheduling pool. [facility]02-12-2025 Miscellaneous Notes* Telephone Encounter - Raymond Odell - 05/29/2024 10:33 AM EST Sent urgent request to the scheduling pool. documented in this encounterParkwood Hospital02-06-2025 Instructions* Patient Instructions* Brisa Bull MD - 05/23/2024 12:29 PM EST You were seen today for your shortness of breath and right sided pleural effusion (fluid). I will reach out to Dr. Rosales regarding repeating a paracentesis and thoracentesis prior to your [facility] on 05/31. We will have you repeat your pulmonary function tests immediately after your thoracentesis. Please follow up as needed. documented in this encounterParkwood Hospital02-06-2025 History of Present illness Narrative* Cheri Guido MD - 05/23/2024 11:30 AM EST Images from the original note were not included. Mr. Blandon is a 68 year old male who presents to the [facility] [place]. Consultation requested by Dr. Dmitri Garg for an opinion regarding shortness of breath. [...] personally reviewed by me Data Reviewed from [facility] (in addition to that noted in HPI, [...] year old male who presents to the [facility] [place] for evaluation of shortness of breath, currently [...] with Dr. Guido who agrees with above. rBisa Bull MD Pulmonary and Critical Care Fellow [...] up Cheri Guido MD documented in this encounterParkwood Hospital02-06-2025 History of Present illness Narrative* Toshia Keita RRT - 05/23/2024 10:41 AM EST PULM FUNCTION: Provider: Brisa Bull MD Spirometry: 1 System: MC2 - [id number] documented in this encounterParkwood Hospital02-06-2025 History of Present illness Narrative* Courtney [...] PATIENT PRESENTS WITH AN IMPLANTABLE OR ATTACHED WORKING SUPERVISOR: No RADIOLOGY DEPARTMENT: General X-ray: Exam(s) Completed: Chest X-Ray PERIPHERAL IV DATA: Not applicable SIGNED BY: RT Noris(R) May 23, 2024 10:30 AM documented in this encounterParkwood Hospital02-05-2025 Telephone encounter Note * Telephone Encounter - Patsy Begum - 05/22/2024 9:00 AM EST Admin responded to pt MC message regarding lab appt. Patsy Begum May 22, 2024 9:02 AM [facility]02-05-2025 Miscellaneous Notes* Telephone Encounter - Patsy Begum - 05/22/2024 9:00 AM EST Admin responded to pt MC message regarding lab appt. Patsy Begum May 22, 2024 9:02 AM documented in this encounterParkwood Hospital01-31-2025 Telephone encounter Note * Telephone Encounter [...] now viewable in the scanned section of [facility](hepatology is aware). Yesica Bright RN [facility]01-31-2025 Miscellaneous Notes* Telephone Encounter - Yesica [...] now viewable in the scanned section of [facility](hepatology is aware). Yesica Bright RN documented in this encounterParkwood Hospital01-24-2025 Telephone encounter Note * Telephone Encounter - Patsy Begum - 05/10/2024 11:37 AM EST Admin received outside lab results for pt. Uploaded into OnBase for review. Patsy Cardosohea May 10, 2024 11:37 AM [facility]01-24-2025 Miscellaneous Notes* Telephone Encounter - Patsy Begum - 05/10/2024 11:37 AM EST Admin received outside lab results for pt. Uploaded into [employer] for review. Patsy Begum May 10, 2024 11:37 AM documented in this encounterParkwood Hospital01-24-2025 Telephone encounter Note * Telephone Encounter - Brittaney Mueller - 05/10/2024 9:17 AM EST External chem labs received and scanned. [facility]01-24-2025 Miscellaneous Notes* Telephone Encounter - Brittaney Mueller - 05/10/2024 9:17 AM EST External chem labs received and scanned. documented in this encounterParkwood Hospital01-22-2025 History of Present illness Narrative* Hal [...] hepatic artery thrombosis, and . Short and mcfp outcomes data was discussed. I reviewed an [...] 08, 2024 12:45 PM documented in this encounterParkwood Hospital01-21-2025 Telephone encounter Note * Telephone Encounter - Yesica Bright RN - 05/07/2024 1:44 PM EST Follow up call placed to review OLT evaluation as well and Dr. Garg's need for a repeat CMP after the administration of of the adjusted diuretic regimen. Will follow up with patient and his on 05/10/24 to review tumor board results. Yesica Bright RN [facility]01-21-2025 Miscellaneous Notes* Telephone Encounter - Yesica Bright RN - 05/07/2024 1:44 PM EST Follow up call placed to review OLT evaluation as well and Dr. Garg's need for a repeat CMP after the administration of of the adjusted diuretic regimen. Will follow up with patient and his on 05/10/24 to review tumor board results. Yesica Bright, RN documented in this encounterParkwood Hospital01-16-2025 Instructions* Patient Instructions* Brisa Seals MD [...] if foreign travel considered. documented in this encounterParkwood Hospital01-16-2025 History of Present illness Narrative* Brisa Seals MD - 05/02/2024 3:00 PM EST Images from the original note were not included. INFECTIOUS DISEASE LIVER PRETRANSPLANT EVALUATION SERVICE DATE: 05/02/2024 Patient is seen at the request of Dr. 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 no exposure to anyone who is homeless or in longterm. Significant other exposures: Smoking: prior Alcohol:none current Drugs: gummies, no smoking STIs: no Tattoos: one Raw meats: occasional raw burger Raw seafood: no Unpasteurized milks/cheeses: none Water supply: city MEDICATIONS Current antibiotics: none Current immunomodulators: no [...] 11:16 AM PAGER/CONTACT #: documented in this encounterParkwood Hospital01-16-2025 History of Present illness Narrative* Jade Arora MD - 05/02/2024 12:30 PM EST Images from the original note were not included. [facility] [place] Claude Suárez Department of Cardiovascular Medicine SECTION OF CLINICAL CARDIOLOGY OUTPATIENT VISIT DATE May 02, 2024 OUTPATIENT VISIT TYPE CONSULTATION PRIMARY CARE PHYSICIAN: Not on file REFERRING PHYSICIAN Dmitri Garg [address] [facility] [id number] CHIEF COMPLAINT: Pre liver transplant HISTORY OF PRESENT ILLNESS: Cardiac consultation at the request of Dr. Dmitri Garg.A copy of this consultation note will be provided to the requesting physician by way of shared Medical record or letter to requesting physicianvia US mail. Mr. Blandon is a 68 year old male from [place], [place], here today for cardiovascular evaluation related [...] in T10 is suspicious for neoplastic etiology. Ward Maid: SRINI Transcribe Date/Time: Apr 30 2024 8:19A Dictated [...] INFORMATION: Jade Arora MD May 02, 2024 [address] [place] [address] Greta Attestation: By signing my name below, ISanjay, attest that this documentation has been prepared under the direction and in the presence of Jade Arora MD Electronically Signed:greta Gallo, May 02, 2024 12:33 PM Provider Attestation: IJade MD, personally performed the services described in this documentation. All medical record entries made by the greta were at my direction and in my presence. I have reviewed the chart and discharge instructions (if applicable) and agree that the record reflects my personal performance and is accurate and complete. Jade Arora MD May 03, 2024 1:51 PM documented in this encounterParkwood Hospital01-15-2025 Nurse procedure note* Sedation Documentation - [...] Follow up as needed Jenn Corea RN [facility]01-15-2025 Miscellaneous Notes* Sedation Documentation - Jenn Corea RN - 05/01/2024 12:02 PM EST 5.3 liters of ascites fluid was removed via paracentesis. Orders received from Rosalinda Benoit [facility] forIV placement and albumin infusion. A #22 [...] 3. 1105: Bottle 4. documented in this encounterParkwood Hospital01-15-2025 Nurse procedure note* Sedation Documentation - Jenn Corea RN - 05/01/2024 11:45 AM EST Needle out. 5.3 L removed via paracentesis without incident. Pressure dressing applied to pt's leftabdomen accordingly. [facility] Nurse procedure note* Sedation Documentation - Jenn Corea RN - 05/01/2024 11:30 AM EST 1130: Albumin 1 1135: Albumin 2 1144: Albumin 3 [facility]01-[facility] Nurse procedure note* Sedation Documentation - Jenn Corea RN - 05/01/2024 11:29 AM EST #22 peripheral IV placed in pt's right AC for needed albumin infusion. Blood return present. [facility]01-[facility] Nurse procedure note* Sedation Documentation - Jenn Corea RN - 05/01/2024 10:46 AM EST 1045: Needle in. Bottle 1. 1050: Bottle 2. 1055: Bottle 3. 1105: Bottle 4. [facility] Nurse Note* Jenn Corea RN - [...] By: Jenn Corea RN In Department: GASTROENTEROLOGY [facility]01-15-20[facility] Nurse Note* Jenn Corea RN - [...] RN In Department: GASTROENTEROLOGY documented in this encounterParkwood Hospital01-15-2025 Consult note* Colton Laughlin MD - [...] Recinos's esophagus, GERD, s/p cholecystectomy, s/p BCC 2016 . Patient has had cirrhosis for 5 month(s). Dr Johnson in [place] referred here to Dr Weir. Patient Currently [...] included preparing to see the patient and geqr-gy-bcfy patient care. SIGNATURE: Colton Laughlin MD PATIENT NAME: Loyd Blandon DATE: May 01, 2024 TIME: 8:14 AM [facility]01-15-2025 Consult note* Colton Laughlin MD - [...] cirrhosis for 5 month([address]). Dr Johnson in [place] referred here to Dr Weir. Patient Currently [...] included preparing to see the patient and affh-wg-zwhf patient care. SIGNATURE: Colton Laughlin MD PATIENT NAME: Loyd Blandon DATE: May 01, 2024 TIME: 8:14 AM documented in this encounterParkwood Hospital01-14-2025 Telephone encounter Note * Telephone Encounter - Elaina Sotomayor HUC - 04/30/2024 3:54 PM EST Spoke with pt's Fabiana to schedule Thoracentesis 05/01/2024 @ 12:30 pm. [facility]01-14-[facility] Miscellaneous Notes* Telephone Encounter - Elaina Sotomayor HUC - 04/30/2024 3:54 PM EST Spoke with pt's Fabiana to schedule Thoracentesis 05/01/2024 @ 12:30 pm. documented in this encounterParkwood Hospital01-14-2025 History of Present illness Narrative* Alessandro Vo [facility] - 04/30/2024 1:00 PM EST Images from [...] Bactrim [Sulfametho* Rash Preferred Pharmacy e- [id number] [place] [address] - [address] [facility] [facility] - [phone] [facility] [address] [facility] [address] Evaluation of current pharmacotherapy: Current Outpatient Rx [...] HAV, HBV, Shingrix, and RSV Received at [facility] will bring in records Education provided: Patient [...] Transplant Pharmacy Clinical Specialist documented in this encounterParkwood Hospital01-14-2025 Telephone encounter Note * Telephone Encounter - Yesica Bright RN - 04/30/2024 10:23 AM EST AMBULATORY PATIENT EDUCATION NOTE Met with patient/family to discuss the following information: [x] SRTR information provided and questions answered. Informed patient to call pharmacy care coordinator with any questions [x] Patient was provided the [employer] brochure on multiple listing and waiting time transfer [x]Evaluation process including presentation to selection committee, and listing criteria reviewed [x]Surgical procedure, including post-operative management, hospitalization, lifelong immunosuppressive medications and their side effects (including the risk for hypertension, diabetes, kidney problems and cancers) and mcfp follow up after transplant. Possibility of recurrent disease discussed with patient. [x]Patient is aware of the potential medical, surgical or psychosocial risks [x] Patient is aware that they will need a daycare director to be available for the first 8-12 [...] to listing. [x] Patient told that the [facility] is a teaching facility and part of care, under the guidance of my physicians, may be conducted by Residents, [place] and students. [x]Patient advised that transplants not [...] Yesica Bright RN In Department: TRANSPLANT CENTER [facility]14[facility]25 Miscellaneous Notes* Telephone Encounter - Yesica Bright RN - 04/30/2024 10:23 AM EST AMBULATORY PATIENT EDUCATION NOTE Met with patient/family to discuss the following information: [x] SRTR information provided and questions answered. Informed patient to call pharmacy care coordinator with any questions [x] Patient was provided the [employer] brochure on multiple listing and waiting time transfer [x]Evaluation process including presentation to selection committee, and listing criteria reviewed [x]Surgical procedure, including post-operative management, hospitalization, lifelong immunosuppressive medications and their side effects (including the risk for hypertension, diabetes, kidney problems and cancers) and terminal superintendent follow up after transplant. Possibility of recurrent disease discussed with patient. [x]Patient is aware of the potential medical, surgical or psychosocial risks [x] Patient is aware that they will need a daycare director to be available for the first 8-12 [...] to listing. [x] Patient told that the [facility] is a teaching facility and part of care, under the guidance of my physicians, may be conducted by Residents, [place] and students. [x]Patient advised that transplants not [...] In Department: TRANSPLANT CENTER documented in this encounterParkwood Hospital01-13-2025 History of Present illness Narrative* Gena [...] PATIENT PRESENTS WITH AN IMPLANTABLE OR ATTACHED WORKING SUPERVISOR: No RADIOLOGY DEPARTMENT: CT; Exam(s) Completed: Chest and Liver PERIPHERAL IV DATA: Site assessment: Clean,Dry and Intact, Site disposition Discontinued SIGNED BY: RT Aura(R) April 29, 2024 4:59 PM documented in this encounterParkwood Hospital01-13-2025 History of Present illness Narrative* Dmitri Gagr MD - 04/29/2024 3:31 PM EST HEPATOLOGY CLINIC - NEW PATIENT Chief Complaint: decompensated alcohol related liver cirrhosis HPI: Loyd Blandon is a 68 year old male with PMH of 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 Today, here with his - After Thanksgi2022 - he started to have brain fog [...] Recinos's esophagus, GERD, s/p cholecystectomy, s/p BCC 2016, here for liver transplant evaluation. MELD-Na: {MELD [...] BID - plan to repeat EGD at [facility] HCC screening - requires imaging every [...] mild inducible asterixis onexamination today. Signature: Dmitri Garg MD Date: 04/29/2024 Time: 7:40 PM documented in this encounterParkwood Hospital01-13-2025 History of Present illness Narrative* Lis [...] White// Heritage [place] Citizen: Yes Preferred Language: Beninese Lives now: Loyd Blandon [id number] [facility] [id number] Impressions: Patient is a 68 year old , male being evaluated for an OLT due to a diagnosis of alcohol-related cirrhosis, possible HCC . Social Support- Patient lives at home with his in house in [place], [place]. Patient reports that he has 3 [...] adequate insurance coverage for transplant through his t Medicare plan. Patient hashousehold income through his [...] GI, Dr. Garzon, [facility] Personal History: Born: [place], [place] Grew up where: went to 8 high schools, [place] [facility], moved around a lot Parents: Pt was raised by: mom raised him, and got along well with her. Had contact with biologicaldad, he 5 years ago. Got when patient was 8. Dad from old age, and mom was COPD and emphysema, alcoholic Siblings: 3 brothers and a sister-brothers live in [place], and sister lives on the [facility] (don't talk to sister); half tyskim-Zldbyri-jashcwpab part Pt is the: oldest Describes upbringing [...] none Honorable discharge: none VA benefits: none Mcc/Fci: none Currently on parole/probation:none Any outstanding legal issues:none Relationship status: -35 years Name of spouse/partner: Fabiana Age: 68 Occupation: retired Medical concerns: none Quality of relationship: good Children: Yes. How many? 2 -1 son and 1 dtr Names and Ages: Bev-41 Loyd-45 Location: No contact with Bev, lives in [place], [place] Loyd-lives in [place] Health issues: Loyd is an addict Quality [...] Likes golfing, watching football, cooking Community Supports: Scientologist: No Other supports: spouse/partner and siblings-half sister, step mom Functioning Abilities: ADL's: requires assistance with the following ADL's: bathing, toileting, ambulating, grocery shopping, house cleaning, and driving-breathing is the issue (sob) Ambulation: Uses a wheelchair-for long distances in the hospital, but does not use a device when athome Community Services/Agencies: None Driving: none-the last year Valid 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 Stitcher Operator's License:yes Access to Transporation: Yes Caregiving for [...] her 20s History of working with medical records manager: good Compliant: Good with consistent follow through Motivation for a transplant: Patient shared that his motivation is that he is not ready to yet,I do not feel that I have lived a full life yet Living Donor: haven't looked into it Discussed MELD score, evaluation process, selection committee, listing, waiting, the call, surgery,hospital recovery time, hospital stay, discharge, terminal superintendent recovery Financial: Insurance: Medicare-[employer] Prescription Coverage : [...] mom Primary support person: Fabiana- Home # [phone] Availability 07/11 Driving:yes Medical/Health Concerns: none Secondary support people: Gisell-half sister Contact #: [phone] Availability not working Driving: yes Medical/Health Concerns: none Who can drive you, be off work, learn your medications, etc.: family Plan for children or pets: Gisell-half sister Other people available: family Family stressors/disagreements: none If multiple caregivers are identified are they able to work together?: yes Patient and Care -Partner(s) read and signed- Patient and Infrastructure Director Commitment: reviewed Mental Health History/Coping: Current Mental [...] chemical dependency treatment and/or 12-step meetings with [facility] or [employer] since their last use. Y 2. Does [...] Directives: Living Will: Yes Durable Power of Military Source Operations Specialist: Yes Information/forms given: completed a couple weeks ago ANNA Norris LISW-S, [facility] April 29, 2024 12:49 PM documented in this encounterParkwood Hospital01-13-2025 Instructions* Patient Instructions* Sara-Ivelisse Cabrera, EBER - 04/29/2024 12:09 PM EST Patient participated [...] milk and fairlife shakes documented in this encounterParkwood Hospital01-13-2025 History of Present illness Narrative* Ivelisse Graham RD - 04/29/2024 12:00 PM EST AMBULATORY PATIENT [...] to maintain weight. Referred/Supervised by: Transplant Team/Guille Miles Billing Type: Ambulatory Group/30 min 2 units SIGNATURE: Ivelisse Graham RD PATIENT NAME: Loyd Blandon DATE: April 29, 2024 TIME: 12:01 PM documented in this encounterParkwood Hospital01-13-2025 History of Present illness Narrative* Amaury Sheffield, MARKELL - 04/29/2024 10:00 AM EST PULM FUNCTION: Provider: Dmitri Garg MD Spirometry: 1 System: [id number] - [id number] documented in this encounterParkwood Hospital01-09-2025 History of Present illness Narrative* Kalyn George RN - 04/25/2024 11:46 AM EST The following information has been provided/discussed with the patient/family during Shared MedicalAppointment education class: Informed Consent for Organ Transplant Program Participation version November 03, 2022. SRTR information provided and questions answered. Informed patient to call pharmacy care coordinator with any questions. UNOS information regarding multiple listings for organ transplantation Evaluation process including presentation to selection committee and listing criteria Surgical procedure, including post-operative management, hospitalization, immunosuppressive medications and their side effects (including the risk for hypertension, diabetes, kidney problems and cancers) and mcfp follow up after transplant. Possibility of recurrent [...] was also addressed Patient was provided with [facility] information sheet regarding transplantation of HepatitisC [...] could potentially be read by a third democrat when sent through the internet (or cellular phone) and desires to receive his protected health information by unencrypted email (or text). INFORMED CONSENT Loyd Blandon Medical Record: [id number] Informed consent for Organ Transplant Program Participation [...] RN April 25, 2024 documented in this encounterParkwood Hospital01-08-2025 Telephone encounter Note * Telephone Encounter [...] patient have to hold Beta Connie? NO [facility]01-08-2025 Miscellaneous Notes* Telephone Encounter - Chas [...] hold Beta Connie? NO documented in this encounterParkwood Hospital01-07-2025 Telephone encounter Note * Telephone Encounter [...] Zoom education class: 04/25/24 Virginia Hickman RN [facility]01-07-2025 Miscellaneous Notes* Telephone Encounter - Virginia [...] RN - 04/23/2024 9:33 AM EST [facility] Referral for Liver Transplant This is [...] Neuro: None Cancer: Yes, BCC skin L hoahaoism 2017 s/p MOHS Psych: None Other pertinent history: Yes, recinos's esoph, early satiety, weight loss, GERD, dyspepsia Vitals: Date: 03/08/24 BP: 130/91 mmHg HR: 68 bpm Ht: 175.3cm Wt: 84.4kg BMI: 27.47 (send BMI >35 to clinical grain operations manager)(If BMI>35 and diagnosis of alcohol, note that [...] and B, Tetanus, Zostivax, Flu, Pneumonia, etc.): [facility] Testing completed already: None Pt will need: CT liver for indeterminate mass like lesion, pulm Pt to provide the following records: Yes, dental, derm Virginia Hickman RN documented in this encounterParkwood Hospital01-07-2025 Telephone encounter Note * Telephone Encounter - Virginia Hickman RN - 04/23/2024 9:33 AM EST [facility] Referral for Liver Transplant This is [...] Neuro: None Cancer: Yes, BCC skin L hoahaoism 2017 s/p MOHS Psych: None Other pertinent history: Yes, recinos's esoph, early satiety, weight loss, GERD, dyspepsia Vitals: Date: 03/08/24 BP: 130/91 mmHg HR: 68 bpm Ht: 175.3cm Wt: 84.4kg BMI: 27.47 (send BMI >35 to clinical grain operations manager)(If BMI>35 and diagnosis of alcohol, note that [...] dependency program: No Drugs: Yes: Last Use: CHAPIN taylor currently, Rehab: No I advised pt to [...] records: Yes, dental, derm Virginia Hickman RN [facility]01-06-2025 Telephone encounter Note* Telephone Encounter - [...] we can see him. Virginia Hickman RN [facility]01-06-2025 Miscellaneous Notes* Telephone Encounter - Virginia [...] we can see him. Virginia Hickman RN * Telephone Encounter - Jillian Aguayo - 04/22/2024 11:14 AM EST Patients is calling for status update. She wants to know what the next step is. Pt is having difficulty breathing and she would like to speed up the process. documented in this encounterParkwood Hospital01-06-2025 Telephone encounter Note * Telephone Encounter - Jillian Aguayo - 04/22/2024 11:14 AM EST Patients is calling for status update. She wants to know what the next step is. Pt is having difficulty breathing and she would like to speed up the process. [facility] Work Phone: [phone]) 472-785212-12-2024 Telephone encounter Note* Telephone Encounter - Chas King II - 03/28/2024 12:39 PM EST LIVER TRANSPLANT REFERRAL Loyd Blandon [id number] Diagnosis: ETOH MELD Na: 18 (Check EPIC [...] for transplant to your (OOS) Medicaid case supervisor? No MyCHART Is the patient signed up for MyChart? Yes - Send patient the OLT New Referral Message OUTSIDE RECORDS (ENSURE THAT RECORDS ARE OBTAINED FROM REFERRING PHYSICIAN OFFICE) Have you ever been seen by: -Cardiology? no -Nephrology? no -Psychiatry? no Care Everywhere: List the facilities that records have been requested from [facility] Be sure to obtain consent from pt to obtain records in care everywhere if it is required [facility]: List the facilities or physicians that records have been requested from [facility] Have images been requested from [employer]? Yes (If imaging records are available in Care Everywhere, still request the outside images via E-Health) A nurse will call for medical intake: -who should she call (Name/relationship to pt)? patient -what phone number? [phone] Phone number to office provided to pt: Yes Additional Comments about patient/evaluation: n/a Chas King [facility]12-12-2024 Miscellaneous Notes* Telephone Encounter - Chas King II - 03/28/2024 12:39 PM EST LIVER TRANSPLANT REFERRAL Loyd Blandon [id number] Diagnosis: ETOH MELD Na: 18 (Check EPIC [...] for transplant to your (OOS) Medicaid case supervisor? No MyCHART Is the patient signed up for MyChart? Yes - Send patient the OLT New Referral Message OUTSIDE RECORDS (ENSURE THAT RECORDS ARE OBTAINED FROM REFERRING PHYSICIAN OFFICE) Have you ever been seen by: -Cardiology? no -Nephrology? no -Psychiatry? no Care Everywhere: List the facilities that records have been requested from [facility] Be sure to obtain consent from pt to obtain records in care everywhere if it is required [facility]: List the facilities or physicians that records have been requested from [facility] Have images been requested from [employer]? Yes (If imaging records are available in Care Everywhere, still request the outside images via E-Health) A nurse will call for medical intake: -who should she call (Name/relationship to pt)? patient -what phone number? [phone] Phone number to office provided to pt: Yes Additional Comments about patient/evaluation: n/a Chas King documented in this encounterParkwood Hospital12-09-2024 Telephone encounter Note * Telephone Encounter - Chas King II - 03/25/2024 10:30 AM EST Called patient regarding a liver transplant evaluation, left message on voicemail to return call [facility]12-09-[facility] Miscellaneous Notes* Telephone Encounter - Chas King II - 03/25/2024 10:30 AM EST Called patient regarding a liver transplant evaluation, left message on voicemail to return call documented in this encounterParkwood Hospital11-22-2024 Note Attestation signed by Irena Johnson [...] documentation in this note for specific details. [facility] Gastroenterology Follow-Up Patient Visit CHIEF COMPLAINT No [...] large esophageal v (more content not included)... [facility]11-05-2024 NoteHospital Medicine Discharge Summary Final Discharge Diagnosis: [...] During Admission: Gastroenterology and Pulmonary Dear Dr. Venkat MD, Loyd is advised to follow up [...] differential In process Fungal culture In process Non-heater worker cytology - fluid exam In process PH PLEURAL FLUID, RESPIRATORY In process Pathology Review In process AFB culture Preliminary result Body fluid cell differential Preliminary result Body fluid culture Preliminary result Diet at the time of discharge: regular diet and low-sodium diet Nutrition Screen Activity: Patient currently has no discharge activity orders Objective Blood p (more content not included)...[facility] 02-20-2024 Note02/20/24 1518 Admission Assessment Questions Verify [...] Interested Does the patient have a case supervisor assigned to them through their insurance? No [...] able to send link and activate MyChart? NoUnAdena Health System11-05-2024 NotePatient: Loyd Blandon Procedure Summary Date: 02/20/24 Room / Location: [facility] Endoscopy Anesthesia Start: 1315 Anesthesia Stop: 1340 Procedure: EGD Diagnosis: Esophageal varices without bleeding, unspecified esophageal varices type (CMS/HCC) Scheduled Providers: Jl Kent MD; VALDEMAR Garrido; Milagro Sheehan MD Responsible Provider: Jl Kent MD [...] PACU per anesthesia protocol. No notable events documented.[facility]11-05-2024 Note Hospital Medicine Daily Progress Note - 02/20/2024 1:46 PM; Room: OR/- Admission: 02/19/2024 4:29 PM; Length of stay: 1 days THE HOSPITALIST TEAM PREFERS TO USE [employer] CHAT FOR NON-URGENT COMMUNICATION 7AM-7PM. IF I DO NOT RESPOND WITHIN 20 MINUTES OR URGENT MATTERS, PLEASE CALL THROUGH THE BLASTING CONTRACT MINER. FROM 7PM-7AM, PLEASE PAGE [phone](COVR). Code Status: Full Code Barriers to Discharge: [...] Prophylaxis: Contraindicated due to thrombocytopenia Scheduled Meds [Jun] carvedilol, 3.125 mg, oral, Nightly [Jun] famotidine, 40 mg, oral, BID [Jun] furosemide, 60 mg, oral, Nightly [Jun] lactulose, [...] , FREET4 , CORTISOL , FEV1 , [id number] , DLCO , RVSP , HDL , LDL No results found for: [id number] , IRON , TIBC , C3 , [...] that demonstrated two columns (more content not included)...[facility]11-05-2024 NoteHoital Medicine Daily Progress Note - 02/20/2024 1:34 PM; Room: OR/- Admission: 02/19/2024 4:29 PM; Length of stay: 1 days THE HOSPITALIST TEAM PREFERS TO USE [employer] FOR NON-URGENT COMMUNICATION 7AM-7PM. IF I DO NOT RESPOND WITHIN 20 MINUTES OR URGENT MATTERS, PLEASE CALL THROUGH THE BLASTING CONTRACT MINER. FROM 7PM-7AM, PLEASE PAGE [phone](COVR). Code Status: Full Code Barriers to Discharge: [...] , FREET4 , CORTISOL , FEV1 , COJ2ZOX , DLCO , RVSP , HDL , LDL No results found for: [id number] , IRON , TIBC , C3 , [...] is a recent righ (more content not included)...[facility]11-05-2024 Note Attestation signed by Aston Conner MD at 02/21/2024 1:03 PM I was present and supervised the procedure THORACENTESIS PROCEDURE NOTE Procedure Drawing In Machine Tender: Sriram Sue MD Attending Physician: Aston Conner [...] Sue MD Pulmonary and Critical Care Fellow [facility]11-05-2024 Note Attestation signed by Aston Conner MD [...] cirrhosis for which he follows up with [facility] gastroenterology. He has been struggling with recurrent ascites and has undergone multiple paracentesis over the past many weeks. He experiences dyspnea both at rest and over exertion for the past [address] imaging he was found to have large right-sided pleural effusion for which he underwent thoracentesis by field technical specialist at [facility]. Patient reports that his dyspnea got better/relieved for 1 day and he became symptomatic again after the fluid got reaccumulated. Today patient came to the [facility] for an EGD he is accompanied by [...] his Primary GI doctors. Follow-up at the [facility] for therapeutic paracentesis and thoracentesis. Current Medications: Scheduled Meds: [MAR Hold] carvedilol, 3.125 mg, oral, Nightly [MAR Hold] famotidine, 40 mg, oral, BID [MAR Hold] furosemide, 60 mg, oral, Nightly [JUN Hold] lactulose, 10 g, oral, Daily [JUN Hold] pantoprazole, 40 mg, oral, Daily [JUN Hold] prednisoLONE acetate, 1 drop, Both Eyes, TID [JUN Hold] rifAXIMin, 550 mg, oral, (more content not included)...[facility]11-05-2024 NotePatient: Loyd Blandon Procedure Information Date/Time: 11/27/23 1130 Scheduled providers: Irena Johnson MD; Jl Kent MD; VALDEMAR Heath Procedure: EGD Location: [facility] [place] Relevant Problems Cardio (+) Aortic root dilatation [...] normal exam Pulmonary (+) decreased breath sounds AbdominalUnAdena Health System11-05-2024 NoteA. Satisfactory for evaluation. Examination of the ThinPrep slide and cell block reveals a hypocellu lar specimen containing few mesothelial cells and scattered inflammatory cells in a background of proteinaceous material.[facility] Comment on above:Performed By: #### LAB13 ####[facility] (MILLIE)[address] [place], [place] [id number] NoteHospital Medicine History and Physical 02/19/2024 3:19 PM THE HOSPITALIST TEAM PREFERS TO USE [employer] CHAT FOR COMMUNICATION 7AM-7PM. IF I DO NOT RESPOND WITHIN 15 MINUTES, PLEASE PAGE ME/CALL THROUGH THE BLASTING CONTRACT MINER. FROM 7PM-7AM, PLEASE PAGE [phone](COVR). Chief Complaint EGD variceal screening History of [...] pleural effusion, [facility] the [facility] Dyspnea 2cm Hepatic lesion in the [...] content not included)... [facility]10-31-2024 Note Attestation signed by Jean Jaquez MD at 02/16/2024 1:16 PM I have seen and examined the patient. I reviewed the resident/fellow note and I agree with the findings and plan. Jean Jaquez MD Interventional Pulmonary Medicine Pulmonary and Critical Care Medicine [facility] Pulmonary Clinic Visit Note Patient: Loyd Blandon Age: 68 y.o. : 1955 Account No.: [id number] Referring physician: Dr. Irena Johnson Chief complaint: [...] he underwent thoracentesis by Dr. Winter at [facility]. He reports that his dyspnea was only [...] Yes Marito Oquendo MD (more content not included)...[facility]10-03-2024 History of Present illness Narrative* Ira Walker, [...] different lens options were explained including the [id number] fees for any upgrades. Intraocular lens (IOL) [...] - and OD -. documented in this encounterSelect Specialty [id number] Note Attestation signed by Irena Johnson MD at 01/01/2024 8:49 AM I discussed the findings and therapeutic plan with the fellow. I agree with the documentation, except for any edits/updates below. I called and spoke with the patient and his , Fabiana. I confirmed with them that they should use Lasix 60 mg once daily as previously instructed, and they acknowledged this.[facility]09-11-2024 Note Attestation signed by Irena Johnson MD [...] were changed during his recent hospitalization at [facility], therefore, will repeat labs Will change to [...] documentation in this note for specific details. [facility] Gastroenterology Follow-up visit CHIEF COMPLAINT Chief Complaint [...] patient was recently hospitalized at [facility] for worsening ascites and shortness of breath. She reports that patient has fluid removed via thoracentesis and paracentesis. He has not undergone paracentesis since his hospital stay. She reports that d (more content not included)... [facility]08-28-2024 History of Present illness Narrative* JOEL Patel - 12/13/2023 1:30 PM EDT Images from the original note were not included. Subjective Patient ID: Loyd Blandon is a 68 y.o. male who presents for [facility] follow up. Loyd is present today for [facility] follow up. He was inpatient from 12/07/23 - 12/08/23. Dx. Ascites, Pleural Effusion, Sinus Bradycardia. He had a Thoracentesis and Paracentesis. His Lasix was increasedto 40 mg BID but saw Infant Lead Teacher in [place], Dr. Hazel, and he was not happy [...] cause drowsiness. Abdominal distension They will contact [facility] to get set up for repeat paracentesis as needed, previously orchestrated by his GI specialist. QUESADA (dyspnea on exertion) - Transthoracic Echo (TTE) Complete; Future Will obtain an ECHO for further evaluation at this time. Gastroesophageal reflux disease without esophagitis Continue current medications as prescribed. Other ascites - Transthoracic Echo (TTE) Complete; Future The patient is seeing a medical record coder for this condition, treatment is deferred to that specialist. Correspondence from that specialist and any available testing were reviewed during today's visit. 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 Will be having a follow up EGD in three months for monitoring of esophageal varices. Follow up for Appointment As Scheduled. documented in this encounterSelect Specialty [id number] NotePatient: Loyd Blandon Procedure Summary Date: 11/27/23 Room / Location: [facility] Anesthesia Start: 1041 Anesthesia Stop: 1107 [...] PACU per anesthesia protocol. No notable events documented.[facility]08-12-2024 Note Patient: Loyd Blandon Procedure Summary Date: 11/27/23 Room / Location: [facility] Anesthesia Start: 1040 Anesthesia Stop: Procedure: EGD Diagnosis: Alcoholic cirrhosis of liver with ascites (CMS/HCC) Scheduled Providers: Irena Johnson MD; Jl Kent MD; VALDEMAR Heath Responsible Provider: Jl Kent MD Anesthesia Type: MAC ASA Status: 3 Anesthesia Post Transport [facility] Patient Monitor: direct observation Transport: uneventful Patient condition is: stableUnAdena Health System08-12-2024 Note Patient: Loyd Blandon Procedure Information Date/Time: 11/27/23 1130 Scheduled providers: Irena Johnson MD; Jl Kent MD; VALDEMAR Heath Procedure: EGD Location: [facility] [place] Relevant Problems Cardio Denies chest pain/SOB (+) [...] patient. Plan discussed with CAA. Additional Equipment RequestsUnAdena Health System07-24-2024 Note Refills providedUnAdena Health System07-01-2024 NotePatient is going to continue taking the medication. PAP application submitted to [employer] Follow up on status. Darnell Razo CPhT [facility] 03/04/24 1:08 PMUnAdena Health System07-01-2024 NotePatient due for Xifaxan Pap renewal. Darnell Razo [facility]PhT [facility] 02/19/24 8:39 AMUnAdena Health System07-01-2024 NoteHave received pt. Portion of PAP form still waiting on prescribers portion. Re faxed the forms over to GI. Send PAP forms in once prescribers portion is signed. Darnell Razo [facility]PhT [facility] 10/20/23 1:20 PMUnAdena Health System07-01-2024 NoteXifaxan PA approved through 04/10/2024, previous approval. Pt has not been on lactulose, prescribed lactulose on the same day as Xifaxan. Based on discussion with annual income for 2 people in the household is $52,000. Should qualify for PAP. Will email provider and pt portions. Josh Jane, PharmD, BCACP 10/16/23 1:56 PM [facility] [phone] Health System Ontario Hospital07-01-2024 NoteI received a call from [facility] - the patient's was incomplete on page 5 of the application. I have corrected this and refaxed it to [facility]. We will continue to follow up. Brandi Valdo, [facility] 03/11/24 2:21 PMAvita Health System [facility] Hospital07-01-2024 NotePatient assistance application approved through [facility]. Approval good through 04/16/2024. Patient Case ID/Approval Number: [id number]. Notified patient and will follow up to confirm shipment/delivery is scheduled. Yamini Camarillo, [facility] 10/23/23 10:11 [facility]07-01-2024 NotePrior Authorization renewal for Xifaxan has been approved 04/17/2024-11/04/2024. Case ID/Authorization Number: NA [x] Patient in spreadsheet [x] Tracking Spreadsheet [x] Archive in CM Called patient and they are aware wants to try and appeal PAP denial. Patient has 300 tablets on hand. Set follow up for Monday to write appeal. Misha Voss [facility] 05/08/24 3:01 PMAvita Health System [facility] Hospital07-01-2024 NoteCalled [facility] and they said that the denial was reversed and the application is now under review again. Appeal was received. Follow up on status on application. Darnell Razo, [facility] 05/17/24 2:24 PMAvita Health System [facility] Hospital07-01-2024 NoteWrote appeal for PAP and had [facility] sign. Faxed to PAP awaiting determination. Follow up next week for status. Misha Voss [facility] 05/10/24 11:42 [facility]07-01-2024 NotePatient was denied PAP due to having [...] Called PAP if copay is really high regional sales representative encouraged us to appeal the denial. Send in letter and claim to show he can't afford. Misha Voss [facility]PhT [facility] 05/08/24 8:35 AMAvita Health System [facility] Hospital07-01-2024 Note Attestation with edits by Josh Jane PharmD, LOYD at 03/22/2024 9:15 AM Johs Jane PharmD, RUBACP 03/22/24 9:15 AM [facility] [phone] Called [employer] to check the status of the PAP application, rep stated that they cannot process 2024 application until April 17, but we do not need to resubmit the paperwork. Call to check PAP status around a week after the new year begins. Emilee Larios, [facility] 03/21/24 12:23 PMAvita Health System [facility] Hospital07-01-2024 NoteCalled patient to verify if he is still taking he said he is in hospital and having a few procedures done. Follow up later this week he won't know if he is still taking until after discharge tomorrow. Misha Voss [facility]PhT [facility] 02/19/24 4:31 PMAvita Health System [facility] Hospital07-01-2024 NotePatient said the delivery has been scheduled and is on its way. Aware they have to [facility] time they need a refill. Have no further questions. Will no longer follow up. Darnell Razo [facility] 10/25/23 10:27 [facility]07-01-2024 NoteSubmitted a PA for Xifaxan on [facility] awaiting determination. Once we get approval we can see how much copay is. Then we can see how much the copay for a month is and if patient is okay with it (probably high copay) or see if patient wants to talk with insurance about repayment plans, or we can appeal decision with high copay to PAP once we have claim. [facility]isha [facility]oss [facility] 05/08/24 2:01 [facility]07-01-2024 Note Attestation signed by Iman Rincon PharmD at 04/25/2024 9:36 AM Iman Rincon PharmD, [facility] Outpatient Clinical Pharmacist [facility] [id number] 04/25/24 9:36 AM Called [facility] to check the status of PAP, application is still pending review. F/U with sally to check status of PAP application. [facility] A[facility]a [facility] 04/15/24 10:46 [facility]07-01-2024 NoteReceived a fax from [employer] stating that they need the image of the backside of the patient's medical insurance card and a image of the script with the patient's name and drug on it. Submitted into [employer]. Awaiting on determination. Darnell Razo, [facility] 03/07/24 9:05 [facility]07-01-2024 NoteXifaxan patient assistance application approved through [employer]. Approval good through 04/16/2025. Patient Case ID/Approval Number: [id number]. [x] Write on board [x] PA Expiration Spreadsheet Called patient, they will call PAP to refill when they need to. Modesto Neff, [facility] [phone] 05/21/24 at 8:13 [facility]07-01-2024 NoteCalled to check on the status and the appeal has not been received yet. I was told that will take some time. Yamini Camarillo, [facility] 05/13/24 11:02 [facility]07-01-2024 NotePAP application is still pending benefit review. Awaiting determination check later for status update. Misha Voss , [facility] 04/04/24 1:40 [facility]06-28-2024 NoteI called and discussed the results of his labwork with the patient. With his sodium level being slightly below baseline, we will have him repeat his labs prior to EGD tomorrow. He expressed clear understanding. If he continues to have low sodium, we may need to consider holding diuretics.[facility]06-28-2024 Note Attestation signed by Irena Johnson MD [...] documentation in this note for specific details. [facility] Gastroenterology Follow-up visit CHIEF COMPLAINT Chief Complaint [...] content not included)... [facility]05-30-2024 NoteCT ordered to rule out chronic mesenteric ischemiaUnAdena Health System02-14-2024 History of Present illness Narrative* Brayan Rouse Anthonyranjana, DO - 05/31/2023 3:15 PM EST Images from the original note were not included. Loyd Blandon 1955 Loyd Blandon is a 67 y.o. male presents with chief complaint of pain increasingly worse and wantsto discuss surgery (Anal fissure) HPI: HPI Bill [...] surgery has been scheduled. documented in this encounterSelect Specialty [id number] History of Present illness Narrative* Brayan Alves DO - 05/18/2023 2:00 PM EST Images from the original note were not included. Loyd Blandon 1955 Loyd Blandon is a 67 y.o. male presents with chief complaint of painful hemorrhoid HPI: HPI Huber states he has a hemorrhoid for the last 5-6 weeks. He was seen by Dr. Carroll's [facility] who referred him to our office. Huber [...] 3 weeks for recheck documented in this encounterSelect Specialty [id number] Evaluation note* Encounter Date Diagnosis Assessment Notes Treatment Notes Treatment Clinical Notes Apr, Nausea (ICD-10 - R11.0) Apr,irrhosis of liver (ICD-10 - K74.60) Apr,Early satiety (ICD-10 - R68.81) [employer] Other 12-28-2023 Evaluation note* Encounter Date Diagnosis Assessment Notes Treatment Notes Treatment Clinical Notes Mar, Lower abdominal pain (ICD-10 - R 10.30) [employer] Other 12-27-2023 Evaluation note* Encounter Date Diagnosis Assessment Notes Treatment Notes Treatment Clinical Notes Mar, Nausea (ICD-10 - R11.0) Patient to stop Pepcid 20mg once daily and will have him start Pepcid 40mg twice daily, lunch and dinner time. Mar,Lower extremity edema (ICD-10 - R60.0) Mar,irrhosis of liver (ICD-10 - K74.60)Will repeat CMP to check liver and kidney functions, if kidney functions are normal will consider placing patient on lasix and spironolactone Patient advised to avoid alcohol consumption. Mar,Early satiety (ICD-10 - R68.81) Mar,loating (ICD-10 - R14.0) [employer] Other 07-27-2023 Evaluation note* Encounter Date Diagnosis Assessment Notes Treatment Notes Treatment Clinical Notes Oct, Recinos's esophagus determined b y biopsy (ICD-10 - K22.70) Oct,Fatty liver (ICD-10 - K76.0)Pt advised to proceed with ultrasound of liver Pt to start Pepcid 20mg in the evening Oct,iarrhea, unspecified type (ICD-10 - R19.7)Pt states he has explosive diarrhea. Pt advised to take dicyclomine 10mg TID. Pt advised to start this BID, morning and evening. Pt advised to start fiber gummies. Pt advised to take three at a time. Pt advised to start probiotic ([employer]) Pt RTO 3 MONTHS [employer] Other 06-07-2023 Procedure noteKettering [facility] Behavioral [facility] CenterEvaluation + Plan note No data available for this section [facility] Evaluation noteNo assessment information available [facility] Work Phone: Evaluation noteNo InformationNortWashington Health System [employer] Other Evaluation note* Diagnosis Fissure in ano Anal fissure documented [facility]* Diagnosis Fissure in ano- Primary Anal fissure documented in this encounter [facility]* Diagnosis Onset Date Resolution Status Cirrhosis acuteDyspepsia and disorder of function of stomachacuteEmesisacuteEsophageal dysmotilityacute [facility] Work Phone: Evaluation note* Diagnosis Age-related nuclear cataract of both eyes- Primary documented in this encounter [facility] HealthcareEvaluation note* Diagnosis Laennec's cirrhosis (HCC)- Primary Alcoholic cirrhosis of liver [facility] Diagnosis Cirrhosis of liver with ascites, unspecified hepatic cirrhosis type (CMS/HCC)- Primary Dizziness Dizziness and giddiness Abdominal distension Flatulence, eructation, and gas pain QUESADA (dyspnea on exertion) Other dyspnea and respiratory abnormality Gastroesophageal reflux disease without esophagitis Esophageal reflux Other ascites Secondary esophageal varices without bleeding (CMS/HCC) documented in this encounter [facility]* Diagnosis Pleural effusion associated with hepatic [...] liver disease (MASLD) [facility] encounter [facility]* Diagnosis Encounter for education- Primary Counseling NOS [facility] [...] liver disease (MASLD) [facility]* Diagnosis Dietary counseling and surveillance- Primary Dietary surveillance and counseling Lesion of liver greater than 1 cm in diameter Alcoholic cirrhosis of liver with ascites (HCC) Alcoholic cirrhosis of liver Liver transplant candidate Metabolic dysfunction-associated steatotic liver disease (MASLD) Awaiting organ transplant Awaiting organ transplant status Severe protein-calorie malnutrition (HCC) Other severe protein-calorie malnutrition [facility] Diagnosis Pleural effusion associated with hepatic disorder Other specified forms of effusion, except tuberculous Shortness of breath Lesion of liver greater than 1 cm in diameter Alcoholic cirrhosis of liver with ascites (HCC) Alcoholic cirrhosis of liver Liver transplant candidate Metabolic dysfunction-associated steatotic liver disease (MASLD) [facility] Diagnosis Pleural effusion associated with [...] Unspecified pleural effusion [facility]* Diagnosis Pleural effusion associated with hepatic disorder- Primary Other specified forms of effusion, except tuberculous Shortness of breath Alcoholic cirrhosis of liver with ascites (HCC) Alcoholic cirrhosis of liver Liver transplant candidate Pleural effusion Unspecified pleural effusion [facility]* Diagnosis Thrombocytopenia (HCC)- Primary Thrombocytopenia, [...] Unspecified pleural effusion [facility]* Diagnosis Need for vaccination- Primary [...] Unspecified pleural effusion [facility]* Diagnosis Liver transplant candidate- Primary Pleural effusion Unspecified pleural effusion [facility]* Diagnosis Alcoholic cirrhosis of liver [...] Unspecified pleural effusion [facility]* Diagnosis Liver mass- Primary Unspecified disorder of liver Low back pain, unspecified back pain laterality, unspecified chronicity, unspecified whether sciatica present Pleural effusion Unspecified pleural effusion [facility] Diagnosis Primary hypertension- Primary Unspecified essential hypertension Pleural effusion Unspecified pleural effusion [facility]* Diagnosis Dyspnea, unspecified type- Primary Pleural effusion Unspecified pleural effusion [facility]* Diagnosis Dyspnea, unspecified type Pleural effusion Unspecified pleural effusion documented [facility]* Diagnosis Other ascites- Primary Pleural effusion Unspecified pleural effusion [facility]* Diagnosis Pleural effusion associated with hepatic disorder Other specified forms of effusion, except tuberculous Shortness of breath Lesion of liver greater than 1 cm in diameter Alcoholic cirrhosis of liver with ascites (HCC) Alcoholic cirrhosis of liver Liver transplant candidate Metabolic dysfunction-associated steatotic liver disease (MASLD) Pleural effusion Unspecified pleural effusion documented [facility] this encounter [facility]* Diagnosis Unilateral inguinal hernia without obstruction or gangrene, recurrence not specified- Primary Pleural effusion Unspecified pleural effusion documented [facility]* Diagnosis Liver transplant candidate- Primary Pleural effusion Unspecified pleural effusion documented [facility]* Diagnosis Pleural effusion associated with hepatic disorder- Primary Other specified forms of effusion, except tuberculous documented in this encounter [facility]* Diagnosis Pleural effusion associated with hepatic disorder- Primary Other specified forms of effusion, except tuberculous documented in this encounter [facility]* Diagnosis Coronary artery disease involving [place] coronary artery of [place] heart, unspecified whether angina present- Primary documented in this encounter [facility]* Diagnosis Other ascites documented in this encounter [facility]* Diagnosis Liver transplant candidate- Primary documented in this encounter [facility]* Diagnosis Unilateral inguinal hernia without obstruction or gangrene, recurrence not specified documented in this encounter [facility] note* Diagnosis Low back pain, unspecified back pain laterality, unspecified chronicity, unspecified whether sciatica present documented [facility] this encounter [facility]* Diagnosis Low back pain, unspecified back pain laterality, unspecified chronicity, unspecified whether sciatica present documented [facility] encounter [facility]* Diagnosis Low back pain, unspecified back pain laterality, unspecified chronicity, unspecified whether sciatica present documented [facility] this encounter [facility]* Diagnosis Pathological fracture, other site, initial encounter for fracture- Primary documented in this encounter [facility]* Diagnosis Other ascites- Primary documented [facility] this [facility]* Diagnosis Liver transplant candidate- Primary Pleural effusion Unspecified pleural effusion documented [facility] this encounter [facility]* Diagnosis Onset Date Resolution Status Admit Date Cirrhosis acuteMarch 2024 11:48am [facility] Work Phone: [facility] note* Diagnosis Other ascites- Primary Pleural effusion Unspecified pleural effusion documented [facility] this encounter [facility]* Diagnosis Pathological fracture, other site, initial encounter for fracture documented in this encounter [facility]* Diagnosis Other ascites documented in this encounter [facility]* Diagnosis 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 Secondary malignant neoplasm of bone and bone marrow documented in this encounter [facility]* Diagnosis Metastatic malignant neoplasm, unspecified site (HCC)- Primary documented in this encounter [facility]* Diagnosis Hepatocellular carcinoma (HCC)- Primary Malignant neoplasm of liver, primary documented in this encounter [facility]* Diagnosis Cirrhosis of liver without ascites, unspecified hepatic cirrhosis type (HCC)- Primary documented in this encounter [facility]* Diagnosis Encounter for screening colonoscopy- Primary Special screening for malignant neoplasms, colon documented in this encounter [facility]* Diagnosis Cirrhosis of liver without ascites, unspecified hepatic cirrhosis type (HCC)- Primary Liver transplant candidate Lesion of liver greater than 1 cm in diameter Alcoholic cirrhosis of liver with ascites (HCC) Alcoholic cirrhosis of liver documented in this encounter [facility]* Diagnosis Aortic root dilatation (CMS/HCC)- Primary Thoracic aneurysm without mention of rupture Cirrhosis of liver with ascites, unspecified hepatic cirrhosis type (CMS/HCC) QUESADA (dyspnea on exertion) Other dyspnea and respiratory abnormality Alcoholic cirrhosis of liver with ascites (CMS/HCC) Other acute postprocedural pain- Primary Type 2 diabetes mellitus with hyperglycemia, without long-term current use of insulin (CMS/HCC) documented [facility] this encounter [facility]* Diagnosis Abnormal bone scan of thoracic spine- Primary Nonspecific abnormal results of other specified function study documented in this encounter [facility]* Diagnosis Other ascites- Primary documented [facility] this encounter [facility]* Diagnosis Laennec's cirrhosis (HCC)- Primary Alcoholic cirrhosis of liver documented [facility]* Diagnosis Liver transplant candidate- Primary documented in this encounter [facility]* Diagnosis Hepatic encephalopathy (HCC)- Primary Hepatic encephalopathy Decompensated cirrhosis (HCC) Pre-operative clearance Preoperative examination, unspecified documented in this encounter [facility]* Diagnosis Liver transplant candidate- Primary Alcoholic cirrhosis of liver with ascites (HCC) Alcoholic cirrhosis of liver documented in this encounter [facility]* Diagnosis Hepatic encephalopathy (HCC)- Primary Hepatic [...] Abdominal pain, generalized documented [facility] this encounter [facility]* Diagnosis Hepatic encephalopathy (HCC)- Primary Hepatic [...] of bile duct documented [facility] this encounter [facility]* Diagnosis Hepatic encephalopathy (HCC)- Primary Hepatic [...] site, group D documented [facility] this encounter [facility] Author Lex Carroll [facility] September 21, 2022 8:04amNote Date/TimeJun2022 8:[address] [address] Gastroenterology H&P Signed Patient: Loyd Blandon MR#: [id number] : 1955 Acct:[id number] Age/Sex: 67 / M Adm Date: 3 Loc: Room: Type: [facility] Attending Dr: Lex Carroll MD Copies to: MD Sanjay Triana II, MD~ Date of Service: 09/21/2022 HISTORY & PHYSICAL: Patient's history with special attention to the cardiovascular, pulmonary systems and the current problem was reviewed with the patient immediately prior to the procedure. Present medications and doses reviewed in the EMR. Allergies and pertinent laboratory tests were also re viewedat this time in the EMR. The physical [...] signed by Lex Carroll MD> 09/21/22 0804 [facility] Work Phone: History general Narrative - Reported* Type Description Date Medical History hypertension Medical HistoryGERDSurgical HistorygallbladderSurgical Historyelbow surgery Surgical Historymesh placement [facility] [employer] Other Hospital Discharge instructions Additional Instructions DISCHARGE [...] problems. -Follow up with PCP. -Office number [phone].[facility] Work Phone: Hospital Discharge instructions No data available for this section [facility] Progress note No data available for this section [facility] Reason for referral (narrative)* Outpatient Procedure (Routine) - AuthorizedSpecialtyDiagnoses / ProceduresReferred By Contact Referred To ContactU[facility] Diagnoses Shortness of breath Liver transplant candidate Procedures ABDOM PARACENTESIS DX/THER W IMAGING GUIDANCE ABDOM PARACENTESIS DX/THER W IMAGING GUIDANCE Dmitri Garg MD [address] [place] [address] [facility] Disease [place] [id number] Referral IDStatusSent[facility] DateExpiration DateVisits RequestedVisits [id number] Auto-Generated Referral [facility] for referral (narrative)* Outpatient Procedure (Routine) - ClosedSpecialtyDiagnoses / ProceduresReferred By ContactReferred To Contact [facility] [place] Diagnoses Shortness of breath Liver transplant candidate Procedures ABDOM PARACENTESIS DX/THER W IMAGING GUIDANCE ABDOM PARACENTESIS DX/THER W IMAGING GUIDANCE Dmitri Garg MD [address] [facility] [address] [facility] Disease [address] [place] [address] Referral IDStatusReasonStart DateExpiration DateVisits RequestedVisits [id number] Auto-Generated Referral [facility] for referral (narrative)* Outpatient Procedure (Routine) - AuthorizedSpecialtyDiagnoses / ProceduresReferred By ContactReferred To [facility] Diagnoses Pleural effusion associated with hepatic disorder Shortness of breath Lesion of liver greater than 1 cm in diameter Alcoholic cirrhosis of liver with ascites (HCC) Liver transplant candidate Metabolic dysfunction-associated steatotic liver disease (MASLD) Procedures ECG COMPLETE ECG ROUTINE ECG W/LEAST 12 LDS W/I&R Jade Arora MD [id number] [place] [address] Referral IDStatusReasonart DateExpiration DateVisits RequestedVisits [id number] Auto-Generated Referral * Transition of Care (Routine) - AuthorizedSpecialtyDiagnoses / Procedures Referred By ContactReferred To [facility] Diagnoses Pleural effusion associated with hepatic disorder Shortness of breath Lesion of liver greater than 1 cm in diameter Alcoholic cirrhosis of liver with ascites (HCC) Liver transplant candidate Metabolic dysfunction-associated steatotic liver disease (MASLD) Procedures CARDIOVASCULAR MEDICINE OP FOLLOW UP APPT ORDER Jade Arora MD [address] [place] [address] [place] [address] Referral IDStatusReasonStsaulsbury DateExpiration DateVisits RequestedVisits [id number] PCP Requested Referral [facility] for referral (narrative)* Outpatient Procedure (Routine) - AuthorizedSpecialtyDiagnoses / ProceduresReferred By ContactReferred To [facility] Diagnoses Other ascites Procedures ABDOM PARACENTESIS DX/THER W IMAGING GUIDANCE ABDOM PARACENTESIS DX/THER W IMAGING GUIDANCE Dmitri Garg MD [address] [place] [address] [place] [address] Referral IDStatusReasonStart DateExpiration DateVisits RequestedVisits [id number] Auto-Generated Referral [facility] for referral (narrative)* Outpatient Procedure (Routine) - New RequestSpecialtyDiagnoses / ProceduresReferred By ContactReferred To [facility] Diagnoses Pleural effusion associated with hepatic disorder Procedures LUNG DIFFUSION CAPACITY (DLCO) LUNG DIFFUSION CAPACITY (DLCO) DIFFUSING CAPACITY Cheri Guido MD [address] [place] [address] [place] [address] Referral IDStatusAmandaasonart DateExpiration DateVisits RequestedVisits [id number] Request Auto-Generated Referral * Outpatient Procedure (Routine) - New RequestSpecialtyDiagnoses / Procedures Referred By ContactReferred To [facility] Diagnoses Pleural effusion associated with hepatic disorder Procedures SPIROMETRY WITH DILATOR IF OBSTRUCTED SPIROMETRY WITH DILATOR IF OBSTRUCTED BRNCDILAT RSPSE SPMTRY PRE&POST-BRNCDILAT ADMN Cheri Guido MD [id number] [place] [address] Referral IDStatusReasonStart DateExpiration DateVisits RequestedVisits [id number] Request Auto-Generated Referral [id number] [facility] for referral (narrative)No reason for referral information availableSt. John Of God [facility] Work Phone: [facility] Narrative* Outpatient Procedure (Routine) - ClosedSpecialtyDiagnoses / ProceduresReferred By ContactReferred To ContactUPPER [facility] Diagnoses Shortness of breath Liver transplant candidate Procedures ABDOM PARACENTESIS DX/THER W IMAGING GUIDANCE ABDOM PARACENTESIS DX/THER W IMAGING GUIDANCE Dmitri Garg MD [address] [place] [address] [facility] [place] [address] [place] [address] Referral IDStatusSaint [facility] Medical CenterStart DateExpiration DateVisits RequestedVisits [id number] Auto-Generated Referral [facility] for visit Narrative* Auth/Cert (Routine)Specialty Diagnoses / ProceduresReferred By ContactReferred To ContactADMITTING Diagnoses 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] Procedures THORACENTESIS NEEDLE/CATH PLEURA W/IMAGING THORACENTESIS NEEDLE OR CATHETER ASPIRATION OF THE PLEURAL SPACE W IMAGING GUIDANCE Admitting [address] [place] [address] Referral IDStatusRejefferson memorial hospitalStart DateExpiration DateVisits RequestedVisits [id number] [facility] for visit Narrative* Outpatient Procedure (Routine) - ClosedSpecialtyDiagnoses / ProceduresReferred By ContactReferred To Contact [facility] [facility] Diagnoses Other ascites Procedures ABDOM PARACENTESIS DX/THER W IMAGING GUIDANCE ABDOM PARACENTESIS DX/THER W IMAGING GUIDANCE Dmitri Garg MD [address] [place] [address] Phone: tel: fax: [place] [address] Referral IDStatusSaint [facility] CenterStsaulsbury DateExpiration DateVisits RequestedVisits [id number] Auto-Generated Referral / [facility] for visit Narrative* Diagnostic Procedure Only (Routine) - ClosedSpecialtyDiagnoses / ProceduresReferred By ContactReferred To Contact US IMAGING Diagnoses Unilateral inguinal hernia without obstruction or gangrene, recurrence not specified Procedures US PELVIS LTD US PELVIC NONOBSTETRIC IMAGE DCMTN LIMITED/F/U Dmitri Garg MD [address] [place] [address] Phone: tel: fax: [facility] [place] [address] Referral IDStatusReasonColumbus DateExpiration DateVisits RequestedVisits [id number] Auto-Generated Referral [facility] for visit Narrative* MRI/CT (Routine) - ClosedSpecialty Diagnoses / ProceduresReferred By ContactReferred To ContactMR IMAGING Diagnoses Low back pain, unspecified back pain laterality, unspecified chronicity, unspecified whether sciatica present Procedures MRI THORACIC SPINE WO/W IVCON MRI SPINAL CANAL THORACIC W/O & W/CONTR Dmitri Thomas MD [address] [place] [address] Phone: tel: fax: [facility] [place] [address] Referral IDStatusReasonColumbus DateExpiration DateVisits RequestedVisits [id number] Auto-Generated Referral [facility] for visit Narrative* MRI/CT (Routine) - ClosedSpecialty Diagnoses / ProceduresReferred By ContactReferred To ContactMR IMAGING Diagnoses Low back pain, unspecified back pain laterality, unspecified chronicity, unspecified whether sciatica present Procedures MRI LUMBAR SPINE WO/W IVCON MRI SPINAL CANAL LUMBAR W/O & W/CONTR Dmitri Thomas MD [address] [place] [address] Phone: tel: fax: [facility] [place] [address] Referral IDStatusReasonStsaulsbury DateExpiration DateVisits RequestedVisits [id number] Auto-Generated Referral [facility] for visit Narrative* MRI/CT (Routine) - ClosedSpecialty Diagnoses / ProceduresReferred By ContactReferred To ContactMR IMAGING Diagnoses Pathological fracture, other site, initial encounter for fracture Procedures MRI THORACIC SPINE WO IVCON MRI SPINAL CANAL THORACIC W/O CONTRAST Dmitri Thomas MD [address] [place] [address] Phone: tel: fax: [facility] [place] [address] Referral IDStatusReasonStart DateExpiration DateVisits RequestedVisits [id number] Auto-Generated Referral / [facility] for visit Narrative* Auth/Cert (Routine)Specialty Diagnoses / ProceduresReferred By ContactReferred To ContactADMITTING Diagnoses Pleural effusion Pleural effusion [J90] Procedures THORACENTESIS NEEDLE/CATH PLEURA W/IMAGING THORACENTESIS NEEDLE OR CATHETER ASPIRATION OF THE PLEURAL SPACE W IMAGING GUIDANCE Admitting [address] [place] [address] Referral IDStatusReasonStart DateExpiration DateVisits RequestedVisits [id number] [facility] for visit Narrative* Auth/Cert (Routine)Specialty Diagnoses / ProceduresReferred By ContactReferred To ContactSP INPATIENT Diagnoses Hepatic encephalopathy (HCC) Procedures [facility] [address] [place] [phone] Phone: tel: Referral IDStatusReasonStart DateExpiration DateVisits RequestedVisits [id number] [facility] for visit Narrative* Auth/Cert - New RequestSpecialty Diagnoses / ProceduresReferred By ContactReferred To Contact [address] [address] Referral IDStatusReasonStsaulsbury DateExpiration DateVisits RequestedVisits AuthorizedNew Request/ [facility] for visit Narrative* Outpatient Procedure (Routine) - ClosedSpecialtyDiagnoses / ProceduresReferred By ContactReferred To Contact [facility] Diagnoses 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) Procedures ERCP ERCP BILIARY/PANC DUCT STENT EXCHANGE W/DIL&WIRE Ollis, Nick, PA-C [address] [place] [address] Phone: tel: fax: [facility] [address] [place] [address] Referral IDStatusBryantsaulsbury DateExpiration DateVisits RequestedVisits [id number] Auto-Generated Referral / [facility] for visit Narrative* Auth/Cert - New RequestSpecialty Diagnoses / ProceduresReferred By ContactReferred To Contact [address] [address] Referral IDStatusWendyColumbus DateExpiration DateVisits RequestedVisits AuthorizedNew Request/ [facility] Chief Complaint and Reason for Visit [...] Rectal Pain, Anal Fissure 8 WEEK FOLLOW UPReason for VisitCirrhosis Dyspepsia and disorder of function of stomach Emesis Esophageal dysmotility Chief Complaint Unknown Chief Complaint Unknown Unknown Chief Complaint Unknown Unknown Unknown Chief Complaint Admit Date K30.June 19, 2024 11:4 8am Chief Complaint Admit Date Unknown November 19, 2024 2:4 5pm Advance Directives No Advanced Directives Records FoundDocuments on File TypeDate RecordedPatient RepresentativeExplanationAdvance Directive(s)10/08/2024 3:04 PMDate ActivatedDate InactivatedComments09/09/2024 7:40 PM09/29/2024 8:28 PM QuestionAnswerCommentsFull Code Order Discussed With:* Discussion Not Medically Appropriate Date ActivatedDate InactivatedComments08/23/2024 5:32 PM09/09/2024 4:42 PMQuestion AnswerCommentsFull Code Order Discussed With:* Patient Advance Directive Response Recorded Date/ Time Advance Directives No September 16 3:42pm Advance Directive Response Recorded Date/ Time Advance Directives No September 16 2:42pm Date ActivatedDate InactivatedComments08/23/2024 5:32 PMQuestionAnswerCommentsFull Code Order Discussed With:* Patient Date ActivatedDate InactivatedComments08/23/2024 5:32 PMQuestionAnswerCommentsFull Code Order Discussed With:* Patient Date ActivatedDate InactivatedComments09/09/2024 7:40 PMTypeDate RecordedPatient RepresentativeExplanationAdvance Directive(s)10/08/2024 3:04 PMDate ActivatedDate InactivatedComments09/09/2024 7:40 PM09/29/2024 8:28 PMQuestionAnswerCommentsFull Code Order Discussed With:* Discussion Not Medically Appropriate Date ActivatedDate InactivatedComments08/23/2024 5:32 PM09/09/2024 4:42 PMQuestion AnswerCommentsFull Code Order Discussed With:* Patient Date ActivatedDate InactivatedComments10/16/2024 1:21 PMDate ActivatedDate InactivatedComments09/09/2024 7:40 PM09/29/2024 8:28 PMQuestionAnswerCommentsFull Code Order Discussed With:* Discussion Not Medically Appropriate Date ActivatedDate InactivatedComments08/23/2024 5:32 PM09/09/2024 4:42 PMQuestion AnswerCommentsFull Code Order Discussed With:* Patient Date ActivatedDate InactivatedComments10/16/2024 1:21 PM10/30/2024 10:09 PMDate ActivatedDate InactivatedComments10/16/2024 1:21 PM10/30/2024 10:09 PMDate ActivatedDate InactivatedComments09/09/2024 7:40 PM09/29/2024 8:28 PMQuestion AnswerCommentsFull Code Order Discussed With:* Discussion Not Medically Appropriate Date ActivatedDate InactivatedComments08/23/2024 5:32 PM09/09/2024 4:42 PMQuestion AnswerCommentsFull Code Order Discussed With:* Patient Date ActivatedDate InactivatedComments12/12/2024 11:16 AMQuestionAnswerComments Full Code Order Discussed With:* Patient and Surrogate Decision Maker Surrogate Decision Maker Relationship:* Spouse Date ActivatedDate InactivatedComments10/16/2024 1:21 PM10/30/2024 10:09 PMDate ActivatedDate InactivatedComments09/09/2024 7:40 PM09/29/2024 8:28 PMQuestion AnswerCommentsFull Code Order Discussed With:* Discussion Not Medically Appropriate Date ActivatedDate InactivatedComments08/23/2024 5:32 PM09/09/2024 4:42 PMQuestion AnswerCommentsFull Code Order Discussed With:* Patient Family History No Family History Records Found Relationship Condition Age at Onset Recorded Date/T nhi Not Specified No pertinent family history Unknown fatherDeceasedUnknownHypertensionUnknownfamily memberHypertensionUnknownNot SpecifiedDeceasedUnknown Summary Purpose Reason for Referral SpecialtyDiagnoses / ProceduresReferred By ContactReferred To Contact IMAGING Diagnoses Low back pain, unspecified back pain laterality, unspecified chronicity, unspecified whether sciatica present Procedures MRI LUMBAR SPINE WO/W IVCON MRI SPINAL CANAL LUMBAR W/O & W/CONTR Dmitri Thomas MD [address] [place] [address] Imaging [place] [address] Referral IDStatusReasonStart DateExpiration DateVisits RequestedVisits [id number] Request Auto-Generated Referral /[id number] / ProceduresReferred By ContactReferred To Contact IMAGING Diagnoses Low back pain, unspecified back pain laterality, unspecified chronicity, unspecified whether sciatica present Procedures MRI THORACIC SPINE WO/W IVCON MRI SPINAL CANAL THORACIC W/O & W/CONTR Dmitri Thomas MD [address] [place] [address] Mr Imaging [place] [address] Referral IDStatusReasonStart DateExpiration DateVisits RequestedVisits [id number] Request Auto-Generated Referral /[id number] / ProceduresReferred By ContactReferred To Contact IMAGING Diagnoses Low back pain, unspecified back pain laterality, unspecified chronicity, unspecified whether sciatica present Procedures MRI CERVICAL SPINE WO/W IVCON MRI SPINAL CANAL CERVICAL W/O & W/CONTR MATRL Dmitri Garg MD [address] [place] [address] Mr Imaging [place] [address] Referral IDStatusReasonStart DateExpiration DateVisits RequestedVisits [id number] Request Auto-Generated Referral [id number] / ProceduresReferred By ContactReferred To Contact IMAGING Diagnoses Liver mass Procedures MRI LIVER WO/W IVCON MRI ABDOMEN W/O & W/CONTRAST MATERIAL Dmitri Garg MD [address] [place] [address] Mr Imaging [place] [address] Referral IDStatusReasonStart DateExpiration DateVisits RequestedVisits [id number] Request Auto-Generated Referral [id number] / ProceduresReferred By ContactReferred To ContactPulmonary and Critical Care Medicine Diagnoses Pleural effusion associated with hepatic disorder Shortness of breath Lesion of liver greater than 1 cm in diameter Alcoholic cirrhosis of liver with ascites (HCC) Liver transplant candidate Metabolic dysfunction-associated steatotic liver disease (MASLD) Procedures CONSULT TO PULM/CRITICAL CARE OFFICE/OUTPATIENT [facility] 60 MINUTES Dmitri Garg MD [address] [place] [address] Referral IDStatusReasonStart DateExpiration DateVisits RequestedVisits [id number] PCP Requested Referral /[id number] / ProceduresReferred By ContactReferred To ContactCardiology Diagnoses Pleural effusion associated with hepatic disorder Shortness of breath Lesion of liver greater than 1 cm in diameter Alcoholic cirrhosis of liver with ascites (HCC) Liver transplant candidate Metabolic dysfunction-associated steatotic liver disease (MASLD) Procedures CONSULT TO CARDIOLOGY OFFICE/OUTPATIENT [facility] 60 MINUTES Dmitri Garg MD [address] [place] [address] Referral IDStatusReasonStart DateExpiration DateVisits RequestedVisits [id number] PCP Requested Referral /[id number] / ProceduresReferred By ContactReferred To ContactRESPIRATORY INSTITUTE Diagnoses Pleural effusion associated with hepatic disorder Shortness of breath Lesion of liver greater than 1 cm in diameter Alcoholic cirrhosis of liver with ascites (HCC) Liver transplant candidate Metabolic dysfunction-associated steatotic liver disease (MASLD) Procedures SPIROMETRY BASELINE ONLY SPMTRY W/VC EXPIRATORY EDY W/WO MXML VOL VNTJ Dmitri Garg MD [address] [place] [address] [facility] [place] [address] [place] [address] Referral IDStatusReasonStart DateExpiration DateVisits RequestedVisits [id number] Auto-Generated Referral /[id number] / ProceduresReferred By ContactReferred To [facility] Diagnoses Lesion of liver greater than 1 cm in diameter Alcoholic cirrhosis of liver with ascites (HCC) Liver transplant candidate Metabolic dysfunction-associated steatotic liver disease (MASLD) Procedures ECHO ECHO TTHRC R-T 2D W/WOM-MODE COMPL SPEC&COLR D Dmitri Garg MD [address] [place] [address] [facility] [place] [address] [place] [address] Referral IDStatusReasonStart DateExpiration DateVisits RequestedVisits [id number] Auto-Generated Referral 1/[id number] / ProceduresReferred By ContactReferred To ContactCT IMAGING Diagnoses Lesion of liver greater than 1 cm in diameter Alcoholic cirrhosis of liver with ascites (HCC) Liver transplant candidate Metabolic dysfunction-associated steatotic liver disease (MASLD) Procedures CT LIVER W IVCON CT ABDOMEN W/CONTRAST Dmitri Garg MD [address] [place] [address] Ct Imaging [place] [address] Referral IDStatusReasonStart DateExpiration DateVisits RequestedVisits [id number] Auto-Generated Referral [id number] / ProceduresReferred By ContactReferred To ContactCT IMAGING Diagnoses Pleural effusion associated with hepatic disorder Shortness of breath Lesion of liver greater than 1 cm in diameter Alcoholic cirrhosis of liver with ascites (HCC) Liver transplant candidate Metabolic dysfunction-associated steatotic liver disease (MASLD) Procedures CT CHEST WO IVCON DIAGNOSTIC COMPUTED TOMOGRAPHY THORAX W/O CNTRST Dmitri Garg MD [address] [place] [address] Ct Imaging [place] [address] Referral IDStatusReasonColumbus DateExpiration DateVisits RequestedVisits [id number] Auto-Generated Referral [id number] / ProceduresReferred By ContactReferred To ContactNutrition Diagnoses Lesion of liver greater than 1 cm in diameter Alcoholic cirrhosis of liver with ascites (HCC) Liver transplant candidate Metabolic dysfunction-associated steatotic liver disease (MASLD) Procedures CONSULT TO NUTRITION THERAPY MEDICAL NUTRITION ASSMT&IVNTJ INDIV EACH 15 [place] Dmitri Garg MD [address] [place] [address] Referral IDStatusReasonStsaulsbury DateExpiration DateVisits RequestedVisits [id number] PCP Requested Referral [id number] / ProceduresReferred By ContactReferred To ContactInfectious Diseases Diagnoses Lesion of liver greater than 1 cm in diameter Alcoholic cirrhosis of liver with ascites (HCC) Liver transplant candidate Metabolic dysfunction-associated steatotic liver disease (MASLD) Procedures CONSULT TO INFECTIOUS DISEASES OFFICE/OUTPATIENT [facility] 60 MINUTES Dmitri Garg MD [address] [place] [phone] Referral IDStatusReasonStart DateExpiration DateVisits RequestedVisits [id number] PCP Requested Referral [id number] / ProceduresReferred By ContactReferred To ContactAnesthesiology Diagnoses Pleural effusion associated with hepatic disorder Shortness of breath Lesion of liver greater than 1 cm in diameter Alcoholic cirrhosis of liver with ascites (HCC) Liver transplant candidate Metabolic dysfunction-associated steatotic liver disease (MASLD) Procedures CONSULT TO ANESTHESIOLOGY OFFICE/OUTPATIENT [facility] 60 MINUTES Dmitri Garg MD [address] [place] [phone] Referral IDStatusReasonStart DateExpiration DateVisits RequestedVisits [id number] PCP Requested Referral [id number] / ProceduresReferred By ContactReferred To Contact Diagnoses Pleural effusion associated with hepatic disorder Shortness of breath Lesion of liver greater than 1 cm in diameter Encounter for screening for malignant neoplasm of prostate Alcoholic cirrhosis of liver with ascites (HCC) Liver transplant candidate Metabolic dysfunction-associated steatotic liver disease (MASLD) Procedures CONSULT TO HEPATOLOGY OFFICE/OUTPATIENT [facility] 60 MINUTES Dmitri Garg MD [address] [place] [phone] Referral IDStatusReasonStart DateExpiration DateVisits RequestedVisits [id number] PCP Requested Referral [id number] / ProceduresReferred By ContactReferred To ContactHEART AND VASCULAR INSTITUTE Diagnoses Lesion of liver greater than 1 cm in diameter Alcoholic cirrhosis of liver with ascites (HCC) Liver transplant candidate Metabolic dysfunction-associated steatotic liver disease (MASLD) Procedures ECG COMPLETE ECG ROUTINE ECG W/LEAST 12 LDS W/I&R Dmitri Garg MD [address] [place] [address] [facility] [place] [address] [place] [address] [facility] DateExpiration DateVisits RequestedVisits [id number] Auto-Generated Referral /[id number] / ProceduresReferred By ContactReferred To ContactRadiology Diagnoses Cirrhosis of liver with ascites, unspecified hepatic cirrhosis type (CMS/HCC) Dizziness QUESADA (dyspnea on exertion) Other ascites Procedures Transthoracic Echo (TTE) Complete Xuan Espino PA [address] [facility] [address] [place] [address] [place] [facility] [address] [place] [address] Phone: [phone] Referral [facility]Status[facility] DateExpiration DateVisits RequestedVisits [id number] Perform Procedure /[id number] / ProceduresReferred By ContactReferred To ContactTRANSPLANT Diagnoses Laennec's cirrhosis (HCC) Procedures CONSULT TO [...] SCREENING MAMMOGRAM BILATERAL DXA BONE DENSITY STUDY 1/> SITES AXIAL SKEL OFFICE/OUTPATIENT NEW HIGH MDM [address] ABDOMEN W & W/O CONTRAST CT ANGIOGRAPHY CHEST W/CONTRAST/NONCONTRAST MRI ABDOMEN W/O & W/CONTRAST MATERIAL COLLECTION VENOUS BLOOD VENIPUNCTURE Belia Medina MD, PhD [address] [place] [address] [facility] [address] [place] [phone] Referral IDStatusReasonStart DateExpiration DateVisits RequestedVisits [id number] Review PCP Requested Referral Financial Clearance Required - [employer] Payor /[id number] Additional Source Comments Care Teams (unrecognized sec tion and content) Team Status: Active Member Role Status Dates Sanjay Robledo II MD Primary Care Provider Active Team Status: Inactive Member Role Status Dates Lex Carroll MD Attending Provider Active JUDITH [facility]will[facility] centerteresa Care ProviderActive Team Status: Inactive Member Role Status Dates Sanjay Robledo II MD Primary Care Provider Active Joe [facility] health ProviderActive Team Status: Inactive Member Role Status Dates Sanjay Robledo II MD Primary Care Provider Active Arlen Fitzpatrick ProviderActiveTeam MemberRelationshipSpecialty Start DateEnd Date Sanjay Robledo MD [address] [address] PCP - Aet04/17/22 Sanjay Robledo MD [address] [facility] [address] [place] [address] PCP - [facility] Hospitalnal Medicine11/23/22Team MemberRelationshipSpecialtyStart Date End Date Sanjay Robledo MD [address] [facility] [address] [place] [address] PCP - Aet04/17/22 Sanjay Robledo MD [address] [facility] [address] [place] [address] PCP - [facility] Hospitalnal Medicine11/23/22 Team Status: Inactive Member Role Status Dates Rick Ortega APRN Attending Provider Active Start: April 12, 2023 End: April 12, 2023 Team Status: Inactive Member Role Status Dates Sanjay Robledo II MD Primary Care Provider Active Start: April 12, 2023 End: April 12, 2023Rick Ortega , APRNAttending ProviderActiveStart: April 12, 2023 End: April 12, 2023 Team Status: Inactive Member Role Status Rosa Robledo II MD Primary Care Provider Active Start: April 26, 2023 End: April 26alicia Ortega , APRNAttenaddie ProviderActiveStart: April 26, 2023 End: April 26, 2023 Team Status: Inactive Member Role Status Rosa Robledo II MD Primary Care Provider Active Start: May 23, 2023 End: May 23, 2023Laeliu Griffith , MDAttending ProviderActiveStart: May 23, 2023 End: May 23, 2023 Team Status: Inactive Member Role Status Rosa Robledo II MD Primary Care Provider Active Start: June 02, 2023 End: June 02, 2023Fredbarb Alves , DOAttending ProviderActiveStart: June 02, 2023 End: June 02, 2023 Team Status: Inactive Member Role Status Rosa Robledo II MD Primary Care Provider Active Start: June 13, 2023 End: June 13, 2023Fredbarb Alvse , DOAttending ProviderActiveStart: June 13, 2023 End: June 13, 2023 Team Status: Inactive Member Role Status Rosa Robledo II MD Primary Care Provider Active Start: July 05, 2023 End: July 04alicia Ortega , AYANNAttenaddie ProviderActiveStart: July 05, 2023 End: July 05, 2023 Team Status: Inactive Member Role Status Rosa Robledo II MD Primary Care Provider Active Start: October 03, 2023 End: October 03, 2023Stfarzana Ferrer MDAttending ProviderActiveStart: October 03, 2023 End: October 03, 2023 Team Status: Inactive Member Role Status Rosa Robledo II MD Primary Care Provider Active Start: December 07, 2023 End: December 07, 2023Devyn ZEPEDA , DOAttending ProviderActiveStart: December 07, 2023 End: December 07, 2023 Team Status: Inactive Member Role Status Rosa Robledo II MD Primary Care Provider Active Start: December 07, 2023 End: December 07, 2023Ward Alfredo Leena MDAttending ProviderActiveStart: December 07, 2023 End: December 07, 2023 Team Status: Inactive Member Role Status Dates Sanjay Robledo II MD Primary Care Provider Active Start: December 12, 2023 End: December 12, 2023Patriciaeze [facility] , DOAttending ProviderActiveStart: December 12, 2023 End: December 12, 2023 Team Status: Inactive Member Role Status Dates Sanjay Robledo II MD Primary Care Provider Active Start: December 08, 2023 End: December 08, 2023Patriciaeze [facility] , DOAttending ProviderActiveStart: December 08, 2023 End: December 08, 2023 Team Status: Active Member Role Status Dates Sanjay Robledo II MD Primary Care Provider Active Start: December 07, 2023 Jason Wang , DOAttending ProviderActiveStart: December 07, 2023 Team Status: Inactive Member Role Status Dates Autumn Farnsworth MD Attending Provider Active Star t: January 03, 2024 End: January 03, 2024Team MemberRelationshipSpecialtyStart DateEnd Date Sanjay Robledo MD [address] [facility] [address] [place] [address] PCP - [facility]04/17/22 Sanjay Robledo MD [address] [place] [address] [place] [address] [facility]/23/22Te MemberRelationshipSpecialtyStart Date End Date Sanjay Robledo MD [address] [facility] [address] [place] [address] [facility] - [facility]/17/22 Sanjay Robledo MD [address] [place] [address] [place] [address] PCP - GeneralInternal Medicine11/23/22Team MemberRelationshipSpecialtyStart Date End Date Sanjay oRbledo MD [address] [place] [address] [place] [address] PCP - [employer]04/17/22 Snajay Robledo MD [address] [place] [address] [place] [address] PCP - GeneralInternal Medicine11/23/22Te MemberRelationshipSpecialtyStart Date End Date Irena Johnson MD [address] [place] [address] [place] [phone] WozkfmpgmAxjcpfzusngyuorq82/26/24Te MemberRelationshipSpecialtyStart DateEnd Date Sanjay Robledo MD [address] [place] [address] [place] [address] PCP - [employer]04/17/22 Sanjay Robledo MD [address] [place] [address] [place] [address] PCP - GeneralInternal Medicine11/23/22Te MemberRelationshipSpecialtyStart Date End Date Irena Johnson MD [address] [place] [address] [place] [phone] VlwkatibpUqwbxbofjpsmvlfi75/26/24Team MemberRelationshipSpecialtyStart DateEnd Date Irena Johnson MD [address] [place] [address] [place] [address] VpgpounuoKtdgwzatvwtgfgvu82/26/24Team MemberRelationshipSpecialtyStart DateEnd Date Sanjay Robledo MD [address] [place] [address] [place] [address] PCP - [facility]04/17/22 Sanjay Robledo MD [address] [place] [address] [place] [address] PCP - [facility]11/23/22Team MemberRelationshipSpecialtyStart Date End Date Sanjay Robledo MD [address] [place] [address] [place] [address] PCP - [facility]04/17/22 Sanjay Robledo MD [address] [place] [address] [place] [address] PCP - [facility]11/23/22Te MemberRelationshipSpecialtyStart Date End Date Sanjay Robledo MD [address] [place] [address] [place] [address] PCP - [facility]04/17/22 Sanjay Robledo MD [address] [place] [address] PCP - [facility]11/23/22Team MemberRelationshipSpecialtyStart Date End Date Irena Johnson MD [address] [place] [address] DqbmafdzjCcdnnmalotaeizrv55/26/24Team MemberRelationshipSpecialtyStart DateEnd Date Irena Johnson MD [address] [place] [address] KksuukyhhRbebirbqpdwbcrbi44/26/24Te MemberRelationshipSpecialtyStart DateEnd Date Irena Johnson MD [address] [place] [address] UopupznxnPxhgswagnyhkxtih94/26/24Te MemberRelationshipSpecialtyStart DateEnd Date Irena Johnson MD [address] [place] [address] MuozvbbqhHobekzkomlybbmav02/26/24Te MemberRelationshipSpecialtyStart DateEnd Date Irena Johnson MD [address] [facility] [place] [address] NvgqpzkpcRpiqrbuoipjdvxwl16/26/24Te MemberRelationshipSpecialtyStart DateEnd Date Irena Johnson MD [address] [place] [facility] [place] [address] XlrseeiojXnsxfpuksffmsyrn12/26/24Te MemberRelationshipSpecialtyStart DateEnd Date Irena Johnson MD [address] [place] [address] LhhlcabfiVasvulymgazifwdm50/26/24Te MemberRelationshipSpecialtyStart DateEnd Date Irena Johnson MD [address] [place] [address] EekhjhezzZylagkvwmjuzrcpb42/26/24Team MemberRelationshipSpecialtyStart DateEnd Date Irena Johnson MD [address] [place] [address] RtciqhvzfKemfgiwblljncfms53/26/24Team MemberRelationshipSpecialtyStart DateEnd Date Irena Johnson MD [address] [place] [address] VjgcgfsxeEvuyxhjtnnswodml37/26/24Te MemberRelationshipSpecialtyStart DateEnd Date Irena Johnson MD [address] [place] [facility] [place] [address] IupnrrqfcWfmdyhjqqwqcpjjf30/26/24Team MemberRelationshipSpecialtyStart DateEnd Date Irena Johnson MD [address] [place] [facility] [place] [address] CobogojqhCrmshkntjwehkxcx23/26/24Team MemberRelationshipSpecialtyStart DateEnd Date Irena Johnson MD [address] [place] [address] LpsxbdufzRdvzdkcxjujxlelf76/26/24Team MemberRelationshipSpecialtyStart DateEnd Date Irena Johnson MD [address] [place] [address] UsunmkoqfGdvetkrufjsjrvzd41/26/24Team MemberRelationshipSpecialtyStart DateEnd Date Irena Johnson MD [address] [place] [address] RptmerjeiMabedypihfgvejif36/26/24 Jade Arora MD [address] [place] [address] Primary Staff PhysicianCardiology05/02/24Team MemberRelationshipSpecialtyStart DateEnd Date Irena Johnson MD [address] [place] [address] OrmfhppymGnktnoblisffnizm13/26/24 Jade Arora MD [address] [place] [address] Primary Staff PhysicianCardiology05/02/24Team MemberRelationshipSpecialtyStart DateEnd Date Irena Johnson MD [address] [place] [address] MfnlhlfanXypqbflfmnzrhwld91/26/24 Jade Arora MD [address] [place] [address] Primary Staff PhysicianCardiology05/02/24Team MemberRelationshipSpecialtyStart DateEnd Date Irena Johnson MD [address] [facility] [address] [place] [address] YmmvliiunNlbctrvywkggrkyy06/26/24 Jade Arora MD [address] [place], [place] [address] Primary Staff PhysicianCardiology05/02/24Team MemberRelationshipSpecialtyStart DateEnd Date Irena Johnson MD [address] [place] [address] AhfwekkndDpinflujtijoivjw02/26/24Te MemberRelationshipSpecialtyStart DateEnd Date Sanjay Robledo MD [address] [place] [address] PCP - [employer]04/17/22 Sanjay Robledo MD [address] [place] [address] PCP - GeneralInternal Medicine11/23/22Team MemberRelationshipSpecialtyStart Date End Date Irena Johnson MD [address] [place] [address] UeamrqesdMlwicfyhqobpsefi07/26/24 Jade Arora MD [address] [place] [address] Primary Staff PhysicianCardiology05/02/24Team MemberRelationshipSpecialtyStart DateEnd Date Sanjay Robledo MD [address] [place] [address] PCP - [employer]04/17/22 Sanjay Robledo MD 112 [facility] [address] [place] [address] PCP - GeneralInternal Medicine11/23/22Team MemberRelationshipSpecialtyStart Date End Date Irena Johnson MD [address] [place] [address] ByqrsbzphHcnczcgvtqxkovvi82/26/24 Jade Arora MD [address] [place], [place] [address] Primary Staff PhysicianCardiology05/02/24Te MemberRelationshipSpecialtyStart DateEnd Date Irena Johnson MD [address] [place] [address] LklsfhecsPygdiosxnkbklgww62/26/24 Jade Arora MD [address] [place] [address] Primary Staff PhysicianCardiology05/02/24Te MemberRelationshipSpecialtyStart DateEnd Date Irena Johnson MD [address] [place] [address] OcbxcwgoqQvzztgavpcgbkzit58/26/24 Jade Arora MD [address] [place] [address] Primary Staff PhysicianCardiology05/02/24Team MemberRelationshipSpecialtyStart DateEnd Date Irena Johnson MD [address] [place] [address] ZsqomozpdDiaeedpnpryrmrhb42/26/24 Jade Arora MD [address] [place] [address] Primary Staff PhysicianCardiology05/02/24Team MemberRelationshipSpecialtyStart DateEnd Date Irena Johnson MD [address] [place] [address] RmnzreizcPxaxtzbgirjrqtjc84/26/24 Jade Arora MD [address] [place] [address] Primary Staff PhysicianCardiology05/02/24Team MemberRelationshipSpecialtyStart DateEnd Date Irena Johnson MD [address] [place] [address] StdqppfujBucnkgnpuuakmzha83/26/24 Jade Arora MD [address] [place] [address] Primary Staff PhysicianCardiology05/02/24Team MemberRelationshipSpecialtyStart DateEnd Date Irena Johnson MD [address] [place] [address] VspsbrnwvStveaduntsndagbg83/26/24 Jade Arora MD [address] [place] [address] Primary Staff PhysicianCardiology05/02/24Team MemberRelationshipSpecialtyStart DateEnd Date Irena Johnson MD [address] [place] [address] AmlngnmyoFkgynpzbvwbnhjjc74/26/24Team MemberRelationshipSpecialtyStart DateEnd Date Sanjay Robledo II, MD [address] [facility] [address] [place] [address] PCP - GeneralInternal Medicine05/28/24 Irena Johnson MD [address] [place] [address] KztzymhjmBbzhbgqcdhhedhjj19/26/24 Jade Arora MD [address] [place] [address] Primary Staff PhysicianCardiology05/02/24Team MemberRelationshipSpecialtyStart DateEnd Date Sanjay Robledo II, MD [address] [place] [address] PCP - GeneralInternal Medicine05/28/24 Irena Johnson MD [address] [place] [address] SbvjugroiCqryozvxxryirilz28/26/24 Jade Arora MD [address] [place] [address] Primary Staff PhysicianCardiology05/02/24Team MemberRelationshipSpecialtyStart DateEnd Date Sanjay Robledo II, MD 112 [facility] [address] [place] [address] PCP - GeneralInternal Medicine05/28/24 Irena Johnson MD [address] [place] [address] YuddaxpjsLnsmpkcuqybiqrzj31/26/24 Jade Arora MD [address] [place] [place] [address] Primary Staff PhysicianCardiology05/02/24Team MemberRelationshipSpecialtyStart DateEnd Date Sanjay Robledo II, MD [address] [address] PCP - GeneralInternal Medicine05/28/24 Irena Johnson MD [address] [place] [address] QufumyqzmJvrotksocfabmzkw71/26/24 Jade Arora MD [address] [place] [place] [address] Primary Staff PhysicianCardiology05/02/24Team MemberRelationshipSpecialtyStart DateEnd Date Sanjay Robledo II, MD [address] [place] [address] PCP - GeneralInternal Medicine05/28/24 Irena Johnson MD [address] [place] [address] YazbttdygNwbwxjpubsjmpzkv94/26/24 Jade Arora MD [address] [place] [address] Primary Staff PhysicianCardiology05/02/24Team MemberRelationshipSpecialtyStart DateEnd Date Sanjay Robledo II, MD [address] [facility] [address] [place] [address] PCP - GeneralInternal Medicine05/28/24 Irena Johnson MD [address] [place] [address] XbvgbalxjUhjcuwjzuybozqva53/26/24 Jade Arora MD [address] [place] [address] Primary Staff PhysicianCardiology05/02/24Team MemberRelationshipSpecialtyStart DateEnd Date Sanjay Robledo II, MD [address] [place] [address] PCP - GeneralInternal Medicine05/28/24 Irena Johnson MD [address] [place] [address] IikudewcjDlfmqouerppmbrzh91/26/24 Jade Arora MD [address] [place] [address] Primary Staff PhysicianCardiology05/02/24Team MemberRelationshipSpecialtyStart DateEnd Date Sanjay Robledo MD [address] [facility] [address] [place] [address] PCP - [employer]04/17/22 Sanjay Robledo MD [address] [facility] [address] [place] [address] PCP - GeneralInternal Medicine11/23/22Team MemberRelationshipSpecialtyStart Date End Date Sanjay Robledo II, MD [address] [facility] [address] [place] [address] PCP - GeneralInternal Medicine05/28/24 Irena Johnson MD [address] [place] [address] CgdfuzsjhYqjhttvavxbwtgcd29/26/24 Jade Arora MD [address] [place] [address] Primary Staff PhysicianCardiology05/02/24Team MemberRelationshipSpecialtyStart DateEnd Date Sanjay Robledo II, MD [address] [facility] [address] [place] [address] PCP - GeneralInternal Medicine05/28/24 Irena Johnson MD [address] [place] [address] YeyqopqflXcubgekonqnpmpef61/26/24 Jade Arora MD [address] [place] [place] [address] Primary Staff PhysicianCardiology05/02/24Team MemberRelationshipSpecialtyStart DateEnd Date Sanjay Robledo II, MD [address] [facility] [address] [place] [address] PCP - GeneralInternal Medicine05/28/24 Irena Johnson MD [address] [place] [address] VioufuwlzLplpzwdwjnbkvbrs95/26/24 Jade Arora MD [address] [place], [place] [address] Primary Staff PhysicianCardiology05/02/24Te MemberRelationshipSpecialtyStart DateEnd Date Sanjay Robledo II, MD 112 [facility] [address] [place] [address] PCP - GeneralInternal Medicine05/28/24 Irena Johnson MD [address] [place] [address] UavmhtcqfGdmzkfhsjwyztwdd78/26/24 Jade Arora MD [address] [place], [place] [address] Primary Staff PhysicianCardiology05/02/24Team MemberRelationshipSpecialtyStart DateEnd Date Sanjay Robledo II, MD [address] [place] [address] PCP - GeneralInternal Medicine05/28/24 Irena Johnson MD [address] [place] [address] JaytastyuLhycoviitpgrbglw80/26/24 Jade Arora MD [address] [place] [address] Primary Staff PhysicianCardiology05/02/24Team MemberRelationshipSpecialtyStart DateEnd Date Sanjay Robledo II, MD [address] [facility] [address] [place] [address] PCP - GeneralInternal Medicine05/28/24 Irena Johnson MD [address] [place] [address] BdjrpqpljSrezxkmzbmicqrny13/26/24 Jade Arora MD [address] [place] [address] Primary Staff PhysicianCardiology05/02/24Team MemberRelationshipSpecialtyStart DateEnd Date Sanjay Robledo II, MD [address] [place] [address] PCP - GeneralInternal Medicine05/28/24 Irena Johnson MD [address] [place] [address] RrkiuopjfZfkwsyvskuozdffq12/26/24 Jade Arora MD [address] [place] [address] Primary Staff PhysicianCardiology05/02/24Team MemberRelationshipSpecialtyStart DateEnd Date Sanjay Robledo II, MD 112 [facility] [address] [place] [address] PCP - GeneralInternal Medicine05/28/24 Irena Johnson MD [address] [place] [place] [address] YirqzrjmyQtluylhmcfajoqhl57/26/24 Jade Arora MD [address] [place], [place] [address] Primary Staff PhysicianCardiology05/02/24Te MemberRelationshipSpecialtyStart DateEnd Date Sanjay Robledo II, MD 112 [facility] [address] [place] [address] PCP - GeneralInternal Medicine05/28/24 Irena Johnson MD [address] [place] [address] RsbrikmtsPafzerxgedzthiqs28/26/24 Jade Arora MD [address] [place] [address] Primary Staff PhysicianCardiology05/02/24 Team Status: Inactive Member Role Status Dates Irena Johnson MD Attending Provider Active Start : June 19, 2024 End: June 19, 2024Sanjay Robledo II [facility] ProviderActiveStart: June 19, 2024 End: June 19, 2024Team MemberRelationshipSpecialtyStart DateEnd Date Sanjay Robledo II, MD 112 [facility] [address] [place] [address] PCP - GeneralInternal Medicine05/28/24 Irena Johnson MD [address] [place] [address] TecjsulbyVrgbkjcopposbxza36/26/24 Jade Arora MD [address] [place] [address] Primary Staff PhysicianCardiology05/02/24Team MemberRelationshipSpecialtyStart DateEnd Date Sanjay Robledo II, MD 112 [facility] [address] [place] [address] PCP - GeneralInternal Medicine05/28/24 Irena Johnson MD [address] [place] [address] FjxcaolkuTnmkdcyvpgsgimnk98/26/24 Jade Arora MD [address] [place] [address] Primary Staff PhysicianCardiology05/02/24Team MemberRelationshipSpecialtyStart DateEnd Date Sanjay Robledo II, MD [address] [place] [address] PCP - GeneralInternal Medicine05/28/24 Irena Johnson MD [address] [place] [address] UxwbxvqlgAbgneocrxdlelqss82/26/24 Jade Aorra MD [address] [place] [address] Primary Staff PhysicianCardiology05/02/24Team MemberRelationshipSpecialtyStart DateEnd Date Sanjay Robledo II, MD [address] [facility] [address] [place] [address] PCP - GeneralInternal Medicine05/28/24 Irena Johnson MD [address] [place] [address] NetxyvisiSxhblbawavaifinf98/26/24 Jade Arora MD [address] [place] [address] Primary Staff PhysicianCardiology05/02/24Team MemberRelationshipSpecialtyStart DateEnd Date Sanjay Robledo II, MD [address] [facility] [address] [place] [address] PCP - GeneralInternal Medicine05/28/24 Irena Johnson MD [address] [place] [address] DypvnkoaeUedvmzgahsqcgipv45/26/24 Jade Arora MD [address] [place] [place] [address] Primary Staff PhysicianCardiology05/02/24Team MemberRelationshipSpecialtyStart DateEnd Date Sanjay Robledo II, MD [address] [facility] [address] [place] [address] PCP - GeneralInternal Medicine05/28/24 Irena Johnson MD [address] [place] [address] NcspanqwnGhmwqvavwrqblgve89/26/24 Jade Arora MD [address] [place] [place] [address] Primary Staff PhysicianCardiology05/02/24Team MemberRelationshipSpecialtyStart DateEnd Date Sanjay Robledo II, MD 112 [facility] [address] [place] [address] PCP - GeneralInternal Medicine05/28/24 Irena Johnson MD [address] [place] [place] [address] JsgrfrgzaRmrhhtdnfylqceiy74/26/24 Jade Arora MD [address] [place] [place] [address] Primary Staff PhysicianCardiology05/02/24 Team Status: Inactive Member Role Status Dates Sanjay Robledo II MD Primary Care Provider Active Start: July 30, 2024 End: July 30, 2024[facility] ProviderActiveStart: July 30, 2024 End: July 30, 2024Team MemberRelationshipSpecialtyStart DateEnd Date Sanjay Robledo II, MD [address] [place] [place] [address] [facility]/28/24 Irena Johnson MD [address] [place] [address] JoxjgufaaNfrvhrwejefaahid24/26/24 Jade Arora MD [address] [place] [address] Primary Staff PhysicianCardiology05/02/24Team MemberRelationshipSpecialtyStart DateEnd Date Sanjay Robledo II, MD [address] [facility] [address] [place] [address] PCP - [facility]05/28/24 Irena Johnson MD [address] [place] [address] CjrkvcsffWgauihhhqbyyywml20/26/24 Jade Arora MD [address] [place] [address] Primary Staff PhysicianCardiology05/02/24Team MemberRelationshipSpecialtyStart DateEnd Date Sanjay Robledo II, MD [address] [place] [address] [place] [address] PCP - GeneralInternal Medicine05/28/24 Irena Johnson MD [address] [place] [place] [address] ZvtzzuhqsVyzworrmrzejuxrd02/26/24 Jade Arora MD [address] [place] [address] Primary Staff PhysicianCardiology05/02/24Team MemberRelationshipSpecialtyStart DateEnd Date Sanjay Robledo II, MD [address] [facility] [address] [place] [address] PCP - GeneralInternal Medicine05/28/24 Irena Johnson MD [address] [place] [address] YgyfsaonaUikpuhqmcajuvwdu03/26/24 Jade Arora MD [address] [place] [address] Primary Staff PhysicianCardiology05/02/24Team MemberRelationshipSpecialtyStart DateEnd Date Sanjay Robledo II, MD [address] [facility] [address] [place] [address] PCP - GeneralInternal Medicine05/28/24 Irena Johnson MD [address] [place] [address] AyfcpnxvfUasqhvqtpkqzbdqr96/26/24 Jade Arora MD [address] [place] [place] [address] Primary Staff PhysicianCardiology05/02/24Team MemberRelationshipSpecialtyStart DateEnd Date Sanjay Robledo MD [address] [place] [address] PCP - [employer]04/17/22 Sanjay Robledo MD [address] [facility] [address] [place] [address] PCP - GeneralInternal Medicine11/23/22Team MemberRelationshipSpecialtyStart Date End Date Sanjay Robledo II, MD [address] [facility] [address] [place] [address] PCP - GeneralInternal Medicine05/28/24 Irena Johnson MD [address] [place] [place] [address] XrmunpsmjGjmerbspqwprwyav14/26/24 Jade Arora MD [address] [place] [place] [address] Primary Staff PhysicianCardiology05/02/24Team MemberRelationshipSpecialtyStart DateEnd Date Sanjay Robledo II, MD [address] [facility] [address] [place] [address] PCP - GeneralInternal Medicine05/28/24 Irena Johnson MD [address] [place] [address] DhwlbzjgiMazubndrarskjhbl97/26/24 Jade Arora MD [address] [place] [address] Primary Staff PhysicianCardiology05/02/24Team MemberRelationshipSpecialtyStart DateEnd Date Sanjay Robledo II, MD [address] [place] [address] PCP - GeneralInternal Medicine05/28/24 Irena Johnson MD [address] [place] [place] [address] NtprtnvouYunfgynmognehwlq55/26/24 Jade Arora MD [address] [place] [address] Primary Staff PhysicianCardiology05/02/24Team MemberRelationshipSpecialtyStart DateEnd Date Sanjay Robledo MD [address] [place] [address] PCP - [employer]04/17/22 Sanjay Robledo MD [address] [place] [place] [address] PCP - GeneralInternal Medicine11/23/22Team MemberRelationshipSpecialtyStart Date End Date Sanjay Robledo II, MD [address] [place] [address] [place] [address] PCP - GeneralInternal Medicine05/28/24 Irena Johnson MD [address] [place] [address] [place] [address] RxxzgxzfzBlypjtjvckxujcbt68/26/24 Jade Arora MD [address] [place], [place] [address] Primary Staff PhysicianCardiology05/02/24Team MemberRelationshipSpecialtyStart DateEnd Date Sanjay Robledo MD [address] [place] [address] [place] [address] PCP - [employer]04/17/22 Sanjay Robledo MD [address] [facility] [address] [place] [address] PCP - GeneralInternal Medicine11/23/22Team MemberRelationshipSpecialtyStart Date End Date Sanjay Robledo II, MD [address] [place] [address] [place] [address] PCP - GeneralInternal Medicine05/28/24 Irena Johnson MD [address] [place] [address] [place] [address] FrhdilwfbDoqnjbrhggfloech40/26/24 Jade Arora MD [address] [place], [place] [address] Primary Staff PhysicianCardiology05/02/24Team MemberRelationshipSpecialtyStart DateEnd Date Sanjay Robledo II, MD [address] [place] [address] [place] [address] PCP - GeneralInternal Medicine05/28/24 Irena Johnson MD [address] [place] [address] [place] [address] RidmifnpdZsyraoyxvgfgqzqj09/26/24 Jade Arora MD [address] [place] [address] Primary Staff PhysicianCardiology05/02/24Team MemberRelationshipSpecialtyStart DateEnd Date Sanjay Robledo II, MD 112 [facility] [address] [place] [address] PCP - GeneralInternal Medicine05/28/24 Irena Johnson MD [address] [place] [place] [address] XmvmavqtwXjqgsnvicbifwqzu57/26/24 Jade Arora MD [address] [place] [address] Primary Staff PhysicianCardiology05/02/24 Carina Ziegler, [facility] [address] [place] [address] Registered NurseTransplant Center09/17/24Team MemberRelationshipSpecialtyStart DateEnd Date Sanjay Robledo II, MD [address] [facility] [address] [place] [address] PCP - GeneralInternal Medicine05/28/24 Irena Johnson MD [address] [place] [address] [place] [address] IqdwzatiyJnvvdimnofllqzkm47/26/24 Jade Arora MD [address] [place] [address] Primary Staff PhysicianCardiology05/02/24 Carina Ziegler, [facility] [address] [place] [address] Registered NurseTransplant [place]09/17/24Team MemberRelationshipSpecialtyStart DateEnd Date Sanjay Robledo II, MD [address] [facility] [address] [place] [address] PCP - GeneralInternal Medicine05/28/24 Irena Johnson MD [address] [place] [place] [address] HxnumpsnjFrujhwkfkjrcyict08/26/24 Jade Arora MD [address] [place] [address] Primary Staff PhysicianCardiology05/02/24 Carina Ziegler RN [facility] [address] [place] [address] Registered NurseTransplant [place]09/17/24Team MemberRelationshipSpecialtyStart DateEnd Date Sanjay Robledo II, MD [address] [facility] [address] [place] [address] PCP - GeneralInternal Medicine05/28/24 Irena Johnson MD [address] [place] [address] SkmhztivhVnevgyvkxvozxnva72/26/24 Jade Arora MD [address] [place] [address] Primary Staff PhysicianCardiology05/02/24 Carina Ziegler, RN [facility] [address] [place] [address] Registered NurseTransplant Center09/17/24Team MemberRelationshipSpecialtyStart DateEnd Date Sanjay Robledo II, MD 112 [facility] [address] [place] [address] PCP - GeneralInternal Medicine05/28/24 Irena Johnson MD [address] [place] [address] MpmkanhhyIsrhkqomjevhnfub66/26/24 Jade Arora MD [address] [place] [address] Primary Staff PhysicianCardiology05/02/24 Carina Ziegler, RN [facility] [address] [place] [address] Registered NurseTransplant [place]09/17/24Team MemberRelationshipSpecialtyStart DateEnd Date Sanjay Robledo II, MD [address] [place] [address] [address] [place] [address] PCP - GeneralInternal Medicine05/28/24 Irena Johnson MD [address] [place] [address] ArzhwhyefGotweumlewgoqmwn99/26/24 Jade Arora MD [address] [place] [address] Primary Staff PhysicianCardiology05/02/24 Carina Ziegler, [facility] [address] [place] [address] Registered NurseTransplant Center09/17/24Team MemberRelationshipSpecialtyStart DateEnd Date Sanjay Robledo II, MD [address] [address] PCP - GeneralInternal Medicine05/28/24 Irena Johnson MD [address] [place] [place] [address] MuunkdfpbOgmmhkoysvhizseb27/26/24 Jade Arora MD [address] [place] [address] Primary Staff PhysicianCardiology05/02/24 Carina Ziegler RN [facility] [address] [place] [address] Registered NurseTransplant [place]09/17/24Team MemberRelationshipSpecialtyStart DateEnd Date Sanjay Robledo II, MD [address] [place] [address] PCP - GeneralInternal Medicine05/28/24 Irena Johnson MD [address] [place] [phone] AqlbthfyqGdjoclpsapfpkdom88/26/24 Jade Arora MD [address] [place] [address] Primary Staff PhysicianCardiology05/02/24 Carina Ziegler, RN [facility] [address] [place] [address] Registered NurseTransplant Center09/17/24Team MemberRelationshipSpecialtyStart DateEnd Date Sanjay Robledo II, MD [address] [place] [address] [address] [place] [address] PCP - GeneralInternal Medicine05/28/24 Irena Johnson MD [address] [place] [place] [phone] NndzalzvmOajbwzvllbareeba67/26/24 Jade Arora MD [address] [place] [address] Primary Staff PhysicianCardiology05/02/24 Carina Ziegler RN [facility] [address] [place] [address] Registered NurseTransplant Center09/17/24Te MemberRelationshipSpecialtyStart DateEnd Date Sanjay Robledo II, MD [address] [place] [address] PCP - GeneralInternal Medicine05/28/24 Irena Johnson MD [address] [place] [phone] QtyvxdqpyGzobqnjvtgdaqzrd16/26/24 Jade Arora MD [address] [place] [address] Primary Staff PhysicianCardiology05/02/24 Carina Ziegler, RN [facility] [address] [place] [address] Registered NurseTransplant Center09/17/24Team MemberRelationshipSpecialtyStart DateEnd Date Sanjay Robledo II, MD [address] [facility] [address] [place] [address] PCP - GeneralInternal Medicine05/28/24 Irena Johnson MD [address] [place] [place] [phone] WppiphdanAjbwosuxdvkfknfy31/26/24 Jade Arora MD [address] [place] [address] Primary Staff PhysicianCardiology05/02/24 Carina Ziegler RN [facility] [address] [place] [address] Registered NurseTransplant [place]09/17/24Team MemberRelationshipSpecialtyStart DateEnd Date Sanjay Robledo MD [address] [facility] [address] [place] [address] PCP - Aetna04/17/22 Sanjay Robledo MD [address] [facility] [address] [place] [address] PCP - GeneralInternal Medicine11/23/22Team MemberRelationshipSpecialtyStart Date End Date Sanjay Robledo II, MD [address] [facility] [address] [place] [address] PCP - GeneralInternal Medicine05/28/24 Irena Johnson MD [address] [place] [place] [phone] ZbqzivvktComhfygisdkbxbne68/26/24 Jade Arora MD [address] [place] [address] Primary Staff PhysicianCardiology05/02/24 Carina Ziegler, RN [facility] [address] [place] [address] Registered NurseTransplant Center09/17/24Team MemberRelationshipSpecialtyStart DateEnd Date Sanjay Robledo II, MD 112 [facility] [address] [place] [address] PCP - GeneralInternal Medicine05/28/24 Irena Johnson MD [address] [place] [place] [phone] MdyetiataEomijmkhvlcpmvov36/26/24 Jade Arora MD [address] [place] [address] Primary Staff PhysicianCardiology05/02/24 Carina Ziegler, RN [facility] [address] [place] [address] Registered NurseTransplant [place]09/17/24Team MemberRelationshipSpecialtyStart DateEnd Date Sanjay Robledo II, MD [address] [address] PCP - GeneralInternal Medicine05/28/24 Irena Johnson MD [address] [place] [place] [phone] ApwcfvzywQuxdrfpjugzqrmuv08/26/24 Jade Arora MD [address] [place] [address] Primary Staff PhysicianCardiology05/02/24 Carina Ziegler, LEO [facility] [address] [place] [address] Registered NurseTransplant Center09/17/24Team MemberRelationshipSpecialtyStart DateEnd Date Sanjay Robledo MD [address] [facility] [address] [place] [address] PCP - Aetna04/17/22 Sanjay Robledo MD [address] [facility] [address] [place] [address] PCP - GeneralInternal Medicine11/23/22Team MemberRelationshipSpecialtyStart Date End Date Sanjay Robledo II, MD [address] [facility] [address] [place] [address] PCP - GeneralInternal Medicine05/28/24 Irena Johnson MD [facility] [address] [place] [phone] VjfekodaeGfbxwdaxpcrlpfad08/26/24 Jade Arora MD [address] [place] [address] Primary Staff PhysicianCardiology05/02/24 Carina Ziegler, LEO [facility] [address] [facility] [place] [address] Registered NurseTransplant Center09/17/24Team MemberRelationshipSpecialtyStart DateEnd Date Sanjay Robledo II, MD [address] [facility] [address] [place] [address] PCP - GeneralInternal Medicine05/28/24 Irena Johnson MD [address] [place] [place] [phone] FbqsveibzAxfajdnywxmophvl12/26/24 Jade Arora MD [address] [place] [address] Primary Staff PhysicianCardiology05/02/24 Carina Ziegler, RN [facility] [address] [facility] [place] [address] Registered NurseTransplant Center09/17/24Team MemberRelationshipSpecialtyStart DateEnd Date Sanjay Robledo II, MD 112 [facility] [address] [place] [address] PCP - GeneralInternal Medicine05/28/24 Irena Johnson MD [address] [place] [address] [place] [phone] WoafwnobtGucurtdlbxzfmlom98/26/24 Jade Arora MD [address] [place] [address] Primary Staff PhysicianCardiology05/02/24 Carina Ziegler, RN [facility] [address] [place] [address] Registered NurseTransplant Center09/17/24Team MemberRelationshipSpecialtyStart DateEnd Date Sanjay Robledo II, MD 112 [facility] [address] [place] [address] PCP - GeneralInternal Medicine05/28/24 Irena Johnson MD [address] [place] [address] [place] [phone] DytuiiicrJgtksljrprdhvzwa00/26/24 Jade Arora MD [address] [place] [address] Primary Staff PhysicianCardiology05/02/24 Carina Ziegler, RN [facility] [address] [place] [address] Registered NurseTransplant Center09/17/24Team MemberRelationshipSpecialtyStart DateEnd Date Sanjay Robledo II, MD 112 [facility] [address] [place] [address] PCP - GeneralInternal Medicine05/28/24 Irena Johnson MD 3000 [facility] [address] [place] [phone] PfgezsehwLsbgjbjvmwztvvrc02/26/24 Jade Arora MD [address] [place] [address] Primary Staff PhysicianCardiology05/02/24 Carina Ziegler, RN [facility] [address] [place] [address] Registered NurseTransplant [place]09/17/24Team MemberRelationshipSpecialtyStart DateEnd Date Sanjay Robledo II, MD 112 [facility] [address] [place] [address] PCP - GeneralInternal Medicine05/28/24 Irena Johnson MD [address] [place] [address] [place] [phone] SlkstkclxFnbkmiyssjmjmljj68/26/24 Jade Arora MD [address] [place], [place] [address] Primary Staff PhysicianCardiology05/02/24 Carina Ziegler, LEO [facility] [address] [place] [address] Registered NurseTransplant Center09/17/24Team MemberRelationshipSpecialtyStart DateEnd Date Sanjay Robledo MD [address] [facility] [address] [place] [address] PCP - Aetna04/17/22 Sanjay Robledo MD [address] [place] [address] [place] [address] PCP - GeneralInternal Medicine11/23/22Team MemberRelationshipSpecialtyStart Date End Date Sanjay Robledo II, MD [address] [facility] [address] [place] [address] PCP - GeneralInternal Medicine05/28/24 Irena Johnson MD 3000 [facility] [address] [place] [phone] SmehubieoBglbfoikaxauzthb67/26/24 Jade Arora MD [address] [place], [place] [address] Primary Staff PhysicianCardiology05/02/24 Carina Ziegler, LEO [facility] [address] [place] [address] Registered NurseTransplant Center09/17/24 [place] [address] [place] [address] PhysicianNephrology11/19/24Team MemberRelationshipSpecialtyStart DateEnd Date Sanjay Robledo II, MD [address] [place] [address] [place] [address] PCP - GeneralInternal Medicine05/28/24 Irena Johnson MD 3000 [facility] [address] [place] [phone] CorptuibkTtebedpohrcpfpkm72/26/24 Jade Arora MD [address] [place] [address] Primary Staff PhysicianCardiology05/02/24 Carina Ziegler, RN [facility] [address] [place] [address] Registered NurseTransplant Center09/17/24 [place] [address] [place] [address] PhysicianNephrology11/19/24 Team Status: Inactive Member Role Status Dates Albin Suarez , Attending Provider Active S tart: November 19, 2024 End: November 19, 2024Team MemberRelationshipSpecialtyStart DateEnd Date Sanjay Robledo MD [address] [facility] [address] [place] [address] PCP - Aetna04/17/22 Sanjay Robledo MD [address] [place] [address] [place] [address] PCP - GeneralInternal Medicine11/23/22Team MemberRelationshipSpecialtyStart Date End Date Sanjay Robledo MD [address] [facility] [address] [place] [address] PCP - Aetna04/17/22 Sanjay Robledo MD [address] [facility] [address] [place] [address] PCP - GeneralInternal Medicine11/23/22Team MemberRelationshipSpecialtyStart Date End Date Sanjay Robledo II, MD [address] [facility] [address] [place] [address] PCP - GeneralInternal Medicine05/28/24 Irena Johnson MD 3000 [facility] [address] [place] [phone] EojzpoqhrGhyfyfqxrttgjnqv89/26/24 Jade Arora MD [address] [place] [address] Primary Staff PhysicianCardiology05/02/24 Carina Ziegler, LEO [facility] [address] [place] [address] Registered NurseTransplant Center09/17/24 [place] [address] [facility] 206 [place] [address] PhysicianNephrology11/19/24Team MemberRelationshipSpecialtyStart DateEnd Date Sanjay Robledo MD [address] [facility] [address] [place] [address] PCP - Aetna04/17/22 Sanjay Robledo MD [address] [facility] [address] [place] [address] PCP - GeneralInternal Medicine11/23/22Team MemberRelationshipSpecialtyStart Date End Date Sanjay Robledo MD [address] [facility] [address] [place] [address] PCP - Aetna04/17/22 Sanjay Robledo MD [address] [facility] [address] [place] [address] PCP - GeneralInternal Medicine11/23/22Team MemberRelationshipSpecialtyStart Date End Date Sanjay Robledo II, MD [address] [facility] [address] [place] [address] PCP - GeneralInternal Medicine05/28/24 Irena Johnson MD 3000 [facility] [address] [place] [address] NlgasavcwGoodunlniyhvomea33/26/24 Jade Arora MD [address] [place], [place] [address] Primary Staff PhysicianCardiology05/02/24 Carina Ziegler RN [facility] [address] [place] [address] Registered NurseTransplant Center09/17/24 [place] [address] [facility] [address] [place], [place] [address] PhysicianNephrology11/19/24Team MemberRelationshipSpecialtyStart DateEnd Date Sanjay Robledo II, MD [address] [facility] [address] [place] [address] PCP - GeneralInternal Medicine05/28/24 Irena Johnson MD [address] [place] [address] [place] [address] AmndofczyZkadyjvxdfpgxwev20/26/24 Jade Arora MD [address] [place] [address] Primary Staff PhysicianCardiology05/02/24 Carina Ziegler RN [facility] [address] [place] [address] Registered NurseTransplant Center09/17/24 [place] [address] [facility] [address] [place], [place] [address] PhysicianNephrology11/19/24Team MemberRelationshipSpecialtyStart DateEnd Date Sanjay Robledo MD [address] [facility] [address] [place] [address] PCP - Aetna04/17/22 Sanjay Robledo MD [address] [facility] [address] [place] [address] PCP - GeneralInternal Medicine11/23/22Team MemberRelationshipSpecialtyStart Date End Date Sanjay Robledo II, MD [address] [facility] [address] [place] [address] PCP - GeneralInternal Medicine05/28/24 Irena Johnson MD [address] [place] [address] [place] [phone] XofcfqzvpNwcmhanmowojwfal60/26/24 Jade Arora MD [address] [place] [address] Primary Staff PhysicianCardiology05/02/24 Carina Ziegler RN [facility] [address] [place] [address] Registered NurseTransplant Center09/17/24 [place] [address] [address] [place] [address] PhysicianNephrology11/19/24Team MemberRelationshipSpecialtyStart DateEnd Date Sanjay Robledo MD [address] [place] [address] [place] [address] PCP - Aetna04/17/22 Sanjay Robledo MD [address] [place] [address] [place] [address] PCP - GeneralInternal Medicine11/23/22Team MemberRelationshipSpecialtyStart Date End Date Sanjay Robledo MD [address] [place] [place] [address] PCP - Aetna04/17/22 Sanjay Robledo MD [address] [place] [address] [place] [address] PCP - GeneralInternal Medicine11/23/22Team MemberRelationshipSpecialtyStart Date End Date Snajay Robledo MD [address] [place] [address] [place] [address] PCP - Aetna04/17/22 Sanjay Robledo MD [address] [place] [address] [place] [address] PCP - GeneralInternal Medicine11/23/22Team MemberRelationshipSpecialtyStart Date End Date Sanjay Robledo MD [address] [facility] [address] [place] [address] PCP - Aetna04/17/22 Sanjay Robledo MD [address] [facility] [address] [place] [address] PCP - GeneralInternal Medicine11/23/22Team MemberRelationshipSpecialtyStart Date End Date Sanjay Robledo MD [address] [facility] [address] [place] [address] PCP - Aet04/17/22 Sanjay Robledo MD [address] [facility] [address] [place] [address] PCP - [facility]Tuc[facility] Hospitalnal Medicine11/23/22 REASON FOR VISIT (unrecogniz ed section and content) ReasonCommentspainful hemorrhoidSpecialtyDiagnoses / ProceduresReferred By ContactReferred To ContactGeneral Surgery Diagnoses Unspecified hemorrhoids Procedures [place] OFFICE/OUTPATIENT NEW HIGH MDM 60 MINUTES Rick Ortega MD 703 [facility] [address] [place] [address] [place] [address] [facility] [address] [place] [address] Referral IDStatusReasonStart DateExpiration DateVisits RequestedVisits [id number] Specialty Services Required /[id number] increasingly worse and wants to discuss surgeryAnal fissureReasonCommentsCataractReasonCommentsReferral - Liver Txp ReasonCommentsReferral - Liver TxpReasonCommentsFollow UpReasonCommentsReferral - Liver TxpIntakeReasonCommentsReminder CallLiver EvalReasonCommentsInformed ConsentTransplant Evaluation ConsentPatient EducationReasonCommentsSpirometry SpecialtyDiagnoses / ProceduresReferred By ContactReferred To ContactRESPIRATORY INSTITUTE Diagnoses Pleural effusion associated with hepatic disorder Shortness of breath Lesion of liver greater than 1 cm in diameter Alcoholic cirrhosis of liver with ascites (HCC) Liver transplant candidate Metabolic dysfunction-associated steatotic liver disease (MASLD) Procedures SPIROMETRY BASELINE ONLY SPMTRY W/VC EXPIRATORY EDY W/WO MXML VOL VNTJ Dmitri Garg MD [address] [place] [address] [facility] [place] [address] [place] [address] Referral IDStatusReasonStart DateExpiration DateVisits RequestedVisits [id number] Auto-Generated Referral /[id number] EducationAssessmentSpecialtyDiagnoses / ProceduresReferred By ContactReferred To ContactNutrition Diagnoses Lesion of liver greater than 1 cm in diameter Alcoholic cirrhosis of liver with ascites (HCC) Liver transplant candidate Metabolic dysfunction-associated steatotic liver disease (MASLD) Procedures CONSULT TO NUTRITION THERAPY MEDICAL NUTRITION ASSMT&IVNTJ INDIV EACH 15 [place] Dmitri Garg MD [address] [place] [address] Referral IDStatusReasonStart DateExpiration DateVisits RequestedVisits [id number] PCP Requested Referral /[id number] CTSpecialtyDiagnoses / Procedures Referred By ContactReferred To ContactCT IMAGING Diagnoses Lesion of liver greater than 1 cm in diameter Alcoholic cirrhosis of liver with ascites (HCC) Liver transplant candidate Metabolic dysfunction-associated steatotic liver disease (MASLD) Procedures CT LIVER W IVCON CT ABDOMEN W/CONTRAST Dmitri Garg MD [address] [place] [id number] [facility] [place] [address] Referral IDStatusReasonStart DateExpiration DateVisits RequestedVisits [id number] Auto-Generated Referral [id number] / ProceduresReferred By ContactReferred To Contact Diagnoses Pleural effusion associated with hepatic disorder Shortness of breath Lesion of liver greater than 1 cm in diameter Encounter for screening for malignant neoplasm of prostate Alcoholic cirrhosis of liver with ascites (HCC) Liver transplant candidate Metabolic dysfunction-associated steatotic liver disease (MASLD) Procedures CONSULT TO HEPATOLOGY OFFICE/OUTPATIENT [facility] 60 MINUTES Dmitri Garg MD [address] [place] [address] Referral IDStatusReasonStart DateExpiration DateVisits RequestedVisits [id number] PCP Requested Referral [id number]d(Thoracentesis)ReasonCommentsPatient EducationSpecialtyDiagnoses / ProceduresReferred By ContactReferred To Contact Anesthesiology Diagnoses Pleural effusion associated with hepatic disorder Shortness of breath Lesion of liver greater than 1 cm in diameter Alcoholic cirrhosis of liver with ascites (HCC) Liver transplant candidate Metabolic dysfunction-associated steatotic liver disease (MASLD) Procedures CONSULT TO ANESTHESIOLOGY OFFICE/OUTPATIENT [facility] 60 MINUTES Dmitri Garg MD [address] [place] [address] Referral IDStatusReasonStart DateExpiration DateVisits RequestedVisits [id number] PCP Requested Referral /[id number] / ProceduresReferred By ContactReferred To ContactCardiology Diagnoses Pleural effusion associated with hepatic disorder Shortness of breath Lesion of liver greater than 1 cm in diameter Alcoholic cirrhosis of liver with ascites (HCC) Liver transplant candidate Metabolic dysfunction-associated steatotic liver disease (MASLD) Procedures CONSULT TO CARDIOLOGY OFFICE/OUTPATIENT [facility] 60 MINUTES Dmitri Garg MD [address] [place] [address] Referral IDStatusReasonStart DateExpiration DateVisits RequestedVisits [id number] PCP Requested Referral [id number] PatientTransplant EvaluationLiver transplant candidateSpecialtyDiagnoses / ProceduresReferred By ContactReferred To [facility] HospitalInfectious Diseases Diagnoses Lesion of liver greater than 1 cm in diameter Alcoholic cirrhosis of liver with ascites (HCC) Liver transplant candidate Metabolic dysfunction-associated steatotic liver disease (MASLD) Procedures CONSULT TO INFECTIOUS DISEASES OFFICE/OUTPATIENT [facility] 60 MINUTES Dmitri Garg MD [address] [place] [address] Referral IDStatusReasonStart DateExpiration DateVisits RequestedVisits [id number] PCP Requested Referral [id number], LabReasonCommentsResultsSpecialty Diagnoses / ProceduresReferred By ContactReferred To [facility] HospitalRESP[facility] Diagnoses Dyspnea, unspecified type Procedures SPIROMETRY WITH DILATOR IF OBSTRUCTED BRNCDILAT RSPSE SPMTRY PRE&POST-BRNCDILAT ADMSandro Mix MD [address] [place] [address] [facility] [place] [address] [place] [address] Referral IDStatusReasonStart DateExpiration DateVisits RequestedVisits [id number] Auto-Generated Referral [id number] PatientSpecialtyDiagnoses / Procedures Referred By ContactReferred To [facility] HospitalPulmonary and Critical Care Medicine Diagnoses Pleural effusion associated with hepatic disorder Shortness of breath Lesion of liver greater than 1 cm in diameter Alcoholic cirrhosis of liver with ascites (HCC) Liver transplant candidate Metabolic dysfunction-associated steatotic liver disease (MASLD) Procedures CONSULT TO PULM/CRITICAL CARE OFFICE/OUTPATIENT [facility] 60 MINUTES Dmitri Garg MD [address] [place] [address] Referral IDStatusReasonStart DateExpiration DateVisits RequestedVisits [id number] PCP Requested Referral /[id number] Of Patient/familySpecialtyDiagnoses / ProceduresReferred By ContactReferred To [facility] Diagnoses Pleural effusion associated with hepatic disorder Procedures LUNG DIFFUSION CAPACITY (DLCO) LUNG DIFFUSION CAPACITY (DLCO) DIFFUSING CAPACITY Cheri Guido MD [address] [place] [address] Phone: tel: fax: [place] [address] Referral IDStatusReasonColumbus DateExpiration DateVisits RequestedVisits [id number] Auto-Generated Referral /[id number] / ProceduresReferred By ContactReferred To [facility] Diagnoses Pleural effusion associated with hepatic disorder Procedures SPIROMETRY WITH DILATOR IF OBSTRUCTED SPIROMETRY WITH DILATOR IF OBSTRUCTED BRNCDILAT RSPSE SPMTRY PRE&POST-BRNCDILAT ADMN Cheri Guido MD [address] [place] [address] Phone: tel: fax: [place] [address] Referral IDStatusAmandaasonStart DateExpiration DateVisits RequestedVisits [id number] Auto-Generated Referral [id number]-Tj ExamReasonCommentsCARDIAC SUBCOMMITTEE MTGReasonCommentsRadiology MRISpecialtyDiagnoses / ProceduresReferred By Contact Referred To ContactMR IMAGING Diagnoses Low back pain, unspecified back pain laterality, unspecified chronicity, unspecified whether sciatica present Procedures MRI CERVICAL SPINE WO/W IVCON MRI SPINAL CANAL CERVICAL W/O & W/CONTR ROSAMARIAL Dmitri Garg MD [address] [place] [address] Phone: tel: fax: [facility] [place] [address] Referral IDStatusReasonStart DateExpiration DateVisits RequestedVisits [id number] Auto-Generated Referral /[id number] Labs ResultschemistryReasonCommentsOLT evaluationReasonCommentsOLT selection mtg pt notificationReasonCommentsOutside Lab ResultsReasonCommentsConsultReasonCommentsCare Coordinator - OtherReason CommentsBiopsy RequestReasonCommentsPatient UpdateReasonCommentsInformed Consent 91Patient EducationReasonCommentsTransplant SerologiesReasonCommentsdc ed schedulingReasonCommentsReturn Call RequestReasonCommentsLiver Pathology Review [facility] Silvana ScoreReasonCommentsCoPat StartReasonComments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CoPat AgencyReasonCommentsCoPat ManagementLab reviewReasonCommentsCoPat StopReason Commentsf/u dc phone callReasonCommentsUpdateOSH admit Goals (unrecognized section and content) Goals may be documented in a n alternate section (unrecognized sect ion and content) No Status Records FoundNo Status Records FoundNo Status Records FoundNo Status Records FoundNo Status Records FoundNo Status Records FoundNo Status Records Found INFORMATION SOURCE (unrecogn ized section and content) DATE CREATED AUTHOR 07/14/2023 [facility] DATE CREATED AUTHOR AUTHOR'S ORGANIZ ATION 08/22/2024 [facility] DATE CREATED AUTHOR AUTHOR'S ORGANIZ ATION 08/23/2024 [facility] DATE CREATED AUTHOR AUTHOR'S ORGANIZ ATION 08/23/2024 [facility] DATE CREATED AUTHOR AUTHOR'S ORGANIZ ATION 11/22/2024 [facility] DATE CREATED AUTHOR AUTHOR'S ORGANIZ ATION 01/26/2025 [facility] DATE CREATED AUTHOR AUTHOR'S ORGANIZ ATION 02/23/2025 [facility] Source Comments (unrecognize d section and content) In the event this informatio n is protected by the Federal Confidentiality of Alcohol and Drug Abuse Patient Records regulations: The Federal rules restrict any use of the information to criminally investigate or prosecute any alcohol or drug abuse patient.Parkwood HospitalIn the event this information is protected by the Federal Confidentiality of Alcohol and Drug Abuse Patient Records regulations: The Federal rules restrict any use of the information to criminally investigate or prosecute any alcohol or drug abuse patient.[facility] HospitalIn the event this information is protected by the Federal Confidentiality of Alcohol and Drug Abuse Patient Records regulations: The Federal rules restrict any use of the information to criminally investigate or prosecute any alcohol or drug abuse patient.[facility] HospitalIn the event this information is protected by the Federal Confidentiality of Alcohol and Drug Abuse Patient Records regulations: The Federal rules restrict any use of the information to criminally investigate or prosecute any alcohol or drug abuse patient.[facility] HospitalIn the event this information is protected by the Federal Confidentiality of Alcohol and Drug Abuse Patient Records regulations: The Federal rules restrict any use of the information to criminally investigate or prosecute any alcohol or drug abuse patient.[facility] HospitalIn the event this information is protected by the Federal Confidentiality of Alcohol and Drug Abuse Patient Records regulations: The Federal rules restrict any use of the information to criminally investigate or prosecute any alcohol or drug abuse patient.[facility] HospitalIn the event this information is protected by the Federal Confidentiality of Alcohol and Drug Abuse Patient Records regulations: The Federal rules restrict any use of the information to criminally investigate or prosecute any alcohol or drug abuse patient.[facility] HospitalIn the event this information is protected by the Federal Confidentiality of Alcohol and Drug Abuse Patient Records regulations: The Federal rules restrict any use of the information to criminally investigate or prosecute any alcohol or drug abuse patient.[facility] HospitalIn the event this information is protected by the Federal Confidentiality of Alcohol and Drug Abuse Patient Records regulations: The Federal rules restrict any use of the information to criminally investigate or prosecute any alcohol or drug abuse patient.[facility] HospitalIn the event this information is protected by the Federal Confidentiality of Alcohol and Drug Abuse Patient Records regulations: The Federal rules restrict any use of the information to criminally investigate or prosecute any alcohol or drug abuse patient.[facility] HospitalIn the event this information is protected by the Federal Confidentiality of Alcohol and Drug Abuse Patient Records regulations: The Federal rules restrict any use of the information to criminally investigate or prosecute any alcohol or drug abuse patient.[facility] HospitalIn the event this information is protected by the Federal Confidentiality of Alcohol and Drug Abuse Patient Records regulations: The Federal rules restrict any use of the information to criminally investigate or prosecute any alcohol or drug abuse patient.[facility] HospitalIn the event this information is protected by the Federal Confidentiality of Alcohol and Drug Abuse Patient Records regulations: The Federal rules restrict any use of the information to criminally investigate or prosecute any alcohol or drug abuse patient.[facility] HospitalIn the event this information is protected by the Federal Confidentiality of Alcohol and Drug Abuse Patient Records regulations: The Federal rules restrict any use of the information to criminally investigate or prosecute any alcohol or drug abuse patient.[facility] HospitalIn the event this information is protected by the Federal Confidentiality of Alcohol and Drug Abuse Patient Records regulations: The Federal rules restrict any use of the information to criminally investigate or prosecute any alcohol or drug abuse patient.[facility] HospitalIn the event this information is protected by the Federal Confidentiality of Alcohol and Drug Abuse Patient Records regulations: The Federal rules restrict any use of the information to criminally investigate or prosecute any alcohol or drug abuse patient.[facility] HospitalIn the event this information is protected by the Federal Confidentiality of Alcohol and Drug Abuse Patient Records regulations: The Federal rules restrict any use of the information to criminally investigate or prosecute any alcohol or drug abuse patient.[facility] HospitalIn the event this information is protected by the Federal Confidentiality of Alcohol and Drug Abuse Patient Records regulations: The Federal rules restrict any use of the information to criminally investigate or prosecute any alcohol or drug abuse patient.[facility] HospitalIn the event this information is protected by the Federal Confidentiality of Alcohol and Drug Abuse Patient Records regulations: The Federal rules restrict any use of the information to criminally investigate or prosecute any alcohol or drug abuse patient.[facility] HospitalIn the event this information is protected by the Federal Confidentiality of Alcohol and Drug Abuse Patient Records regulations: The Federal rules restrict any use of the information to criminally investigate or prosecute any alcohol or drug abuse patient.[facility] HospitalIn the event this information is protected by the Federal Confidentiality of Alcohol and Drug Abuse Patient Records regulations: The Federal rules restrict any use of the information to criminally investigate or prosecute any alcohol or drug abuse patient.[facility] HospitalIn the event this information is protected by the Federal Confidentiality of Alcohol and Drug Abuse Patient Records regulations: The Federal rules restrict any use of the information to criminally investigate or prosecute any alcohol or drug abuse patient.[facility] HospitalIn the event this information is protected by the Federal Confidentiality of Alcohol and Drug Abuse Patient Records regulations: The Federal rules restrict any use of the information to criminally investigate or prosecute any alcohol or drug abuse patient.[facility] HospitalIn the event this information is protected by the Federal Confidentiality of Alcohol and Drug Abuse Patient Records regulations: The Federal rules restrict any use of the information to criminally investigate or prosecute any alcohol or drug abuse patient.[facility] HospitalIn the event this information is protected by the Federal Confidentiality of Alcohol and Drug Abuse Patient Records regulations: The Federal rules restrict any use of the information to criminally investigate or prosecute any alcohol or drug abuse patient.[facility] HospitalIn the event this information is protected by the Federal Confidentiality of Alcohol and Drug Abuse Patient Records regulations: The Federal rules restrict any use of the information to criminally investigate or prosecute any alcohol or drug abuse patient.[facility] HospitalIn the event this information is protected by the Federal Confidentiality of Alcohol and Drug Abuse Patient Records regulations: The Federal rules restrict any use of the information to criminally investigate or prosecute any alcohol or drug abuse patient.[facility] HospitalIn the event this information is protected by the Federal Confidentiality of Alcohol and Drug Abuse Patient Records regulations: The Federal rules restrict any use of the information to criminally investigate or prosecute any alcohol or drug abuse patient.[facility] HospitalIn the event this information is protected by the Federal Confidentiality of Alcohol and Drug Abuse Patient Records regulations: The Federal rules restrict any use of the information to criminally investigate or prosecute any alcohol or drug abuse patient.[facility] HospitalIn the event this information is protected by the Federal Confidentiality of Alcohol and Drug Abuse Patient Records regulations: The Federal rules restrict any use of the information to criminally investigate or prosecute any alcohol or drug abuse patient.[facility] HospitalIn the event this information is protected by the Federal Confidentiality of Alcohol and Drug Abuse Patient Records regulations: The Federal rules restrict any use of the information to criminally investigate or prosecute any alcohol or drug abuse patient.[facility] HospitalIn the event this information is protected by the Federal Confidentiality of Alcohol and Drug Abuse Patient Records regulations: The Federal rules restrict any use of the information to criminally investigate or prosecute any alcohol or drug abuse patient.[facility] HospitalIn the event this information is protected by the Federal Confidentiality of Alcohol and Drug Abuse Patient Records regulations: The Federal rules restrict any use of the information to criminally investigate or prosecute any alcohol or drug abuse patient.[facility] HospitalIn the event this information is protected by the Federal Confidentiality of Alcohol and Drug Abuse Patient Records regulations: The Federal rules restrict any use of the information to criminally investigate or prosecute any alcohol or drug abuse patient.[facility] HospitalIn the event this information is protected by the Federal Confidentiality of Alcohol and Drug Abuse Patient Records regulations: The Federal rules restrict any use of the information to criminally investigate or prosecute any alcohol or drug abuse patient.[facility] HospitalIn the event this information is protected by the Federal Confidentiality of Alcohol and Drug Abuse Patient Records regulations: The Federal rules restrict any use of the information to criminally investigate or prosecute any alcohol or drug abuse patient.[facility] HospitalIn the event this information is protected by the Federal Confidentiality of Alcohol and Drug Abuse Patient Records regulations: The Federal rules restrict any use of the information to criminally investigate or prosecute any alcohol or drug abuse patient.[facility] HospitalIn the event this information is protected by the Federal Confidentiality of Alcohol and Drug Abuse Patient Records regulations: The Federal rules restrict any use of the information to criminally investigate or prosecute any alcohol or drug abuse patient.[facility] HospitalIn the event this information is protected by the Federal Confidentiality of Alcohol and Drug Abuse Patient Records regulations: The Federal rules restrict any use of the information to criminally investigate or prosecute any alcohol or drug abuse patient.[facility] HospitalIn the event this information is protected by the Federal Confidentiality of Alcohol and Drug Abuse Patient Records regulations: The Federal rules restrict any use of the information to criminally investigate or prosecute any alcohol or drug abuse patient.[facility] HospitalIn the event this information is protected by the Federal Confidentiality of Alcohol and Drug Abuse Patient Records regulations: The Federal rules restrict any use of the information to criminally investigate or prosecute any alcohol or drug abuse patient.[facility] HospitalIn the event this information is protected by the Federal Confidentiality of Alcohol and Drug Abuse Patient Records regulations: The Federal rules restrict any use of the information to criminally investigate or prosecute any alcohol or drug abuse patient.[facility] HospitalIn the event this information is protected by the Federal Confidentiality of Alcohol and Drug Abuse Patient Records regulations: The Federal rules restrict any use of the information to criminally investigate or prosecute any alcohol or drug abuse patient.[facility]In the event this information is protected by the Federal Confidentiality of Alcohol and Drug Abuse Patient Records regulations: The Federal rules restrict any use of the information to criminally investigate or prosecute any alcohol or drug abuse patient.[facility] HospitalIn the event this information is protected by the Federal Confidentiality of Alcohol and Drug Abuse Patient Records regulations: The Federal rules restrict any use of the information to criminally investigate or prosecute any alcohol or drug abuse patient.[facility] HospitalIn the event this information is protected by the Federal Confidentiality of Alcohol and Drug Abuse Patient Records regulations: The Federal rules restrict any use of the information to criminally investigate or prosecute any alcohol or drug abuse patient.[facility] HospitalIn the event this information is protected by the Federal Confidentiality of Alcohol and Drug Abuse Patient Records regulations: The Federal rules restrict any use of the information to criminally investigate or prosecute any alcohol or drug abuse patient.[facility] HospitalIn the event this information is protected by the Federal Confidentiality of Alcohol and Drug Abuse Patient Records regulations: The Federal rules restrict any use of the information to criminally investigate or prosecute any alcohol or drug abuse patient.[facility] HospitalIn the event this information is protected by the Federal Confidentiality of Alcohol and Drug Abuse Patient Records regulations: The Federal rules restrict any use of the information to criminally investigate or prosecute any alcohol or drug abuse patient.[facility] HospitalIn the event this information is protected by the Federal Confidentiality of Alcohol and Drug Abuse Patient Records regulations: The Federal rules restrict any use of the information to criminally investigate or prosecute any alcohol or drug abuse patient.[facility] HospitalIn the event this information is protected by the Federal Confidentiality of Alcohol and Drug Abuse Patient Records regulations: The Federal rules restrict any use of the information to criminally investigate or prosecute any alcohol or drug abuse patient.[facility] HospitalIn the event this information is protected by the Federal Confidentiality of Alcohol and Drug Abuse Patient Records regulations: The Federal rules restrict any use of the information to criminally investigate or prosecute any alcohol or drug abuse patient.[facility] HospitalIn the event this information is protected by the Federal Confidentiality of Alcohol and Drug Abuse Patient Records regulations: The Federal rules restrict any use of the information to criminally investigate or prosecute any alcohol or drug abuse patient.[facility] HospitalIn the event this information is protected by the Federal Confidentiality of Alcohol and Drug Abuse Patient Records regulations: The Federal rules restrict any use of the information to criminally investigate or prosecute any alcohol or drug abuse patient.[facility] HospitalIn the event this information is protected by the Federal Confidentiality of Alcohol and Drug Abuse Patient Records regulations: The Federal rules restrict any use of the information to criminally investigate or prosecute any alcohol or drug abuse patient.[facility] HospitalIn the event this information is protected by the Federal Confidentiality of Alcohol and Drug Abuse Patient Records regulations: The Federal rules restrict any use of the information to criminally investigate or prosecute any alcohol or drug abuse patient.[facility] HospitalIn the event this information is protected by the Federal Confidentiality of Alcohol and Drug Abuse Patient Records regulations: The Federal rules restrict any use of the information to criminally investigate or prosecute any alcohol or drug abuse patient.[facility] HospitalIn the event this information is protected by the Federal Confidentiality of Alcohol and Drug Abuse Patient Records regulations: The Federal rules restrict any use of the information to criminally investigate or prosecute any alcohol or drug abuse patient.[facility] HospitalIn the event this information is protected by the Federal Confidentiality of Alcohol and Drug Abuse Patient Records regulations: The Federal rules restrict any use of the information to criminally investigate or prosecute any alcohol or drug abuse patient.[facility] HospitalIn the event this information is protected by the Federal Confidentiality of Alcohol and Drug Abuse Patient Records regulations: The Federal rules restrict any use of the information to criminally investigate or prosecute any alcohol or drug abuse patient.[facility] HospitalIn the event this information is protected by the Federal Confidentiality of Alcohol and Drug Abuse Patient Records regulations: The Federal rules restrict any use of the information to criminally investigate or prosecute any alcohol or drug abuse patient.[facility] HospitalIn the event this information is protected by the Federal Confidentiality of Alcohol and Drug Abuse Patient Records regulations: The Federal rules restrict any use of the information to criminally investigate or prosecute any alcohol or drug abuse patient.[facility] HospitalIn the event this information is protected by the Federal Confidentiality of Alcohol and Drug Abuse Patient Records regulations: The Federal rules restrict any use of the information to criminally investigate or prosecute any alcohol or drug abuse patient.[facility] HospitalIn the event this information is protected by the Federal Confidentiality of Alcohol and Drug Abuse Patient Records regulations: The Federal rules restrict any use of the information to criminally investigate or prosecute any alcohol or drug abuse patient.[facility] HospitalIn the event this information is protected by the Federal Confidentiality of Alcohol and Drug Abuse Patient Records regulations: The Federal rules restrict any use of the information to criminally investigate or prosecute any alcohol or drug abuse patient.[facility] HospitalIn the event this information is protected by the Federal Confidentiality of Alcohol and Drug Abuse Patient Records regulations: The Federal rules restrict any use of the information to criminally investigate or prosecute any alcohol or drug abuse patient.[facility] HospitalIn the event this information is protected by the Federal Confidentiality of Alcohol and Drug Abuse Patient Records regulations: The Federal rules restrict any use of the information to criminally investigate or prosecute any alcohol or drug abuse patient.[facility] HospitalIn the event this information is protected by the Federal Confidentiality of Alcohol and Drug Abuse Patient Records regulations: The Federal rules restrict any use of the information to criminally investigate or prosecute any alcohol or drug abuse patient.[facility] HospitalIn the event this information is protected by the Federal Confidentiality of Alcohol and Drug Abuse Patient Records regulations: The Federal rules restrict any use of the information to criminally investigate or prosecute any alcohol or drug abuse patient.[facility] HospitalIn the event this information is protected by the Federal Confidentiality of Alcohol and Drug Abuse Patient Records regulations: The Federal rules restrict any use of the information to criminally investigate or prosecute any alcohol or drug abuse patient.[facility] HospitalIn the event this information is protected by the Federal Confidentiality of Alcohol and Drug Abuse Patient Records regulations: The Federal rules restrict any use of the information to criminally investigate or prosecute any alcohol or drug abuse patient.[facility] HospitalIn the event this information is protected by the Federal Confidentiality of Alcohol and Drug Abuse Patient Records regulations: The Federal rules restrict any use of the information to criminally investigate or prosecute any alcohol or drug abuse patient.[facility] HospitalIn the event this information is protected by the Federal Confidentiality of Alcohol and Drug Abuse Patient Records regulations: The Federal rules restrict any use of the information to criminally investigate or prosecute any alcohol or drug abuse patient.[facility] HospitalIn the event this information is protected by the Federal Confidentiality of Alcohol and Drug Abuse Patient Records regulations: The Federal rules restrict any use of the information to criminally investigate or prosecute any alcohol or drug abuse patient.[facility] HospitalIn the event this information is protected by the Federal Confidentiality of Alcohol and Drug Abuse Patient Records regulations: The Federal rules restrict any use of the information to criminally investigate or prosecute any alcohol or drug abuse patient.[facility] HospitalIn the event this information is protected by the Federal Confidentiality of Alcohol and Drug Abuse Patient Records regulations: The Federal rules restrict any use of the information to criminally investigate or prosecute any alcohol or drug abuse patient.[facility] HospitalIn the event this information is protected by the Federal Confidentiality of Alcohol and Drug Abuse Patient Records regulations: The Federal rules restrict any use of the information to criminally investigate or prosecute any alcohol or drug abuse patient.[facility] HospitalIn the event this information is protected by the Federal Confidentiality of Alcohol and Drug Abuse Patient Records regulations: The Federal rules restrict any use of the information to criminally investigate or prosecute any alcohol or drug abuse patient.[facility] HospitalIn the event this information is protected by the Federal Confidentiality of Alcohol and Drug Abuse Patient Records regulations: The Federal rules restrict any use of the information to criminally investigate or prosecute any alcohol or drug abuse patient.[facility] HospitalIn the event this information is protected by the Federal Confidentiality of Alcohol and Drug Abuse Patient Records regulations: The Federal rules restrict any use of the information to criminally investigate or prosecute any alcohol or drug abuse patient.[facility] HospitalIn the event this information is protected by the Federal Confidentiality of Alcohol and Drug Abuse Patient Records regulations: The Federal rules restrict any use of the information to criminally investigate or prosecute any alcohol or drug abuse patient.[facility] HospitalIn the event this information is protected by the Federal Confidentiality of Alcohol and Drug Abuse Patient Records regulations: The Federal rules restrict any use of the information to criminally investigate or prosecute any alcohol or drug abuse patient.[facility] HospitalIn the event this information is protected by the Federal Confidentiality of Alcohol and Drug Abuse Patient Records regulations: The Federal rules restrict any use of the information to criminally investigate or prosecute any alcohol or drug abuse patient.[facility] HospitalIn the event this information is protected by the Federal Confidentiality of Alcohol and Drug Abuse Patient Records regulations: The Federal rules restrict any use of the information to criminally investigate or prosecute any alcohol or drug abuse patient.[facility] HospitalIn the event this information is protected by the Federal Confidentiality of Alcohol and Drug Abuse Patient Records regulations: The Federal rules restrict any use of the information to criminally investigate or prosecute any alcohol or drug abuse patient.[facility] HospitalIn the event this information is protected by the Federal Confidentiality of Alcohol and Drug Abuse Patient Records regulations: The Federal rules restrict any use of the information to criminally investigate or prosecute any alcohol or drug abuse patient.[facility] HospitalIn the event this information is protected by the Federal Confidentiality of Alcohol and Drug Abuse Patient Records regulations: The Federal rules restrict any use of the information to criminally investigate or prosecute any alcohol or drug abuse patient.[facility] HospitalIn the event this information is protected by the Federal Confidentiality of Alcohol and Drug Abuse Patient Records regulations: The Federal rules restrict any use of the information to criminally investigate or prosecute any alcohol or drug abuse patient.[facility] HospitalIn the event this information is protected by the Federal Confidentiality of Alcohol and Drug Abuse Patient Records regulations: The Federal rules restrict any use of the information to criminally investigate or prosecute any alcohol or drug abuse patient.[facility] HospitalIn the event this information is protected by the Federal Confidentiality of Alcohol and Drug Abuse Patient Records regulations: The Federal rules restrict any use of the information to criminally investigate or prosecute any alcohol or drug abuse patient.[facility] HospitalIn the event this information is protected by the Federal Confidentiality of Alcohol and Drug Abuse Patient Records regulations: The Federal rules restrict any use of the information to criminally investigate or prosecute any alcohol or drug abuse patient.[facility] HospitalIn the event this information is protected by the Federal Confidentiality of Alcohol and Drug Abuse Patient Records regulations: The Federal rules restrict any use of the information to criminally investigate or prosecute any alcohol or drug abuse patient.[facility] HospitalIn the event this information is protected by the Federal Confidentiality of Alcohol and Drug Abuse Patient Records regulations: The Federal rules restrict any use of the information to criminally investigate or prosecute any alcohol or drug abuse patient.[facility] ClinicIn the event this information is protected by the Federal Confidentiality of Alcohol and Drug Abuse Patient Records regulations: The Federal rules restrict any use of the information to criminally investigate or prosecute any alcohol or drug abuse patient.[facility] HospitalIn the event this information is protected by the Federal Confidentiality of Alcohol and Drug Abuse Patient Records regulations: The Federal rules restrict any use of the information to criminally investigate or prosecute any alcohol or drug abuse patient.[facility] HospitalIn the event this information is protected by the Federal Confidentiality of Alcohol and Drug Abuse Patient Records regulations: The Federal rules restrict any use of the information to criminally investigate or prosecute any alcohol or drug abuse patient.[facility] HospitalIn the event this information is protected by the Federal Confidentiality of Alcohol and Drug Abuse Patient Records regulations: The Federal rules restrict any use of the information to criminally investigate or prosecute any alcohol or drug abuse patient.[facility] HospitalIn the event this information is protected by the Federal Confidentiality of Alcohol and Drug Abuse Patient Records regulations: The Federal rules restrict any use of the information to criminally investigate or prosecute any alcohol or drug abuse patient.[facility] HospitalIn the event this information is protected by the Federal Confidentiality of Alcohol and Drug Abuse Patient Records regulations: The Federal rules restrict any use of the information to criminally investigate or prosecute any alcohol or drug abuse patient.[facility] HospitalIn the event this information is protected by the Federal Confidentiality of Alcohol and Drug Abuse Patient Records regulations: The Federal rules restrict any use of the information to criminally investigate or prosecute any alcohol or drug abuse patient.[facility] HospitalIn the event this information is protected by the Federal Confidentiality of Alcohol and Drug Abuse Patient Records regulations: The Federal rules restrict any use of the information to criminally investigate or prosecute any alcohol or drug abuse patient.[facility] HospitalIn the event this information is protected by the Federal Confidentiality of Alcohol and Drug Abuse Patient Records regulations: The Federal rules restrict any use of the information to criminally investigate or prosecute any alcohol or drug abuse patient.[facility] HospitalIn the event this information is protected by the Federal Confidentiality of Alcohol and Drug Abuse Patient Records regulations: The Federal rules restrict any use of the information to criminally investigate or prosecute any alcohol or drug abuse patient.[facility] HospitalIn the event this information is protected by the Federal Confidentiality of Alcohol and Drug Abuse Patient Records regulations: The Federal rules restrict any use of the information to criminally investigate or prosecute any alcohol or drug abuse patient.[facility] HospitalIn the event this information is protected by the Federal Confidentiality of Alcohol and Drug Abuse Patient Records regulations: The Federal rules restrict any use of the information to criminally investigate or prosecute any alcohol or drug abuse patient.[facility] HospitalIn the event this information is protected by the Federal Confidentiality of Alcohol and Drug Abuse Patient Records regulations: The Federal rules restrict any use of the information to criminally investigate or prosecute any alcohol or drug abuse patient.[facility] HospitalIn the event this information is protected by the Federal Confidentiality of Alcohol and Drug Abuse Patient Records regulations: The Federal rules restrict any use of the information to criminally investigate or prosecute any alcohol or drug abuse patient.[facility] HospitalIn the event this information is protected by the Federal Confidentiality of Alcohol and Drug Abuse Patient Records regulations: The Federal rules restrict any use of the information to criminally investigate or prosecute any alcohol or drug abuse patient.[facility] HospitalIn the event this information is protected by the Federal Confidentiality of Alcohol and Drug Abuse Patient Records regulations: The Federal rules restrict any use of the information to criminally investigate or prosecute any alcohol or drug abuse patient.[facility] HospitalIn the event this information is protected by the Federal Confidentiality of Alcohol and Drug Abuse Patient Records regulations: The Federal rules restrict any use of the information to criminally investigate or prosecute any alcohol or drug abuse patient.[facility] HospitalIn the event this information is protected by the Federal Confidentiality of Alcohol and Drug Abuse Patient Records regulations: The Federal rules restrict any use of the information to criminally investigate or prosecute any alcohol or drug abuse patient.[facility] HospitalIn the event this information is protected by the Federal Confidentiality of Alcohol and Drug Abuse Patient Records regulations: The Federal rules restrict any use of the information to criminally investigate or prosecute any alcohol or drug abuse patient.[facility] HospitalIn the event this information is protected by the Federal Confidentiality of Alcohol and Drug Abuse Patient Records regulations: The Federal rules restrict any use of the information to criminally investigate or prosecute any alcohol or drug abuse patient.[facility] HospitalIn the event this information is protected by the Federal Confidentiality of Alcohol and Drug Abuse Patient Records regulations: The Federal rules restrict any use of the information to criminally investigate or prosecute any alcohol or drug abuse patient.[facility] HospitalIn the event this information is protected by the Federal Confidentiality of Alcohol and Drug Abuse Patient Records regulations: The Federal rules restrict any use of the information to criminally investigate or prosecute any alcohol or drug abuse patient.[facility] HospitalIn the event this information is protected by the Federal Confidentiality of Alcohol and Drug Abuse Patient Records regulations: The Federal rules restrict any use of the information to criminally investigate or prosecute any alcohol or drug abuse patient.[facility] HospitalIn the event this information is protected by the Federal Confidentiality of Alcohol and Drug Abuse Patient Records regulations: The Federal rules restrict any use of the information to criminally investigate or prosecute any alcohol or drug abuse patient.[facility] HospitalIn the event this information is protected by the Federal Confidentiality of Alcohol and Drug Abuse Patient Records regulations: The Federal rules restrict any use of the information to criminally investigate or prosecute any alcohol or drug abuse patient.[facility] HospitalIn the event this information is protected by the Federal Confidentiality of Alcohol and Drug Abuse Patient Records regulations: The Federal rules restrict any use of the information to criminally investigate or prosecute any alcohol or drug abuse patient.[facility] HospitalIn the event this information is protected by the Federal Confidentiality of Alcohol and Drug Abuse Patient Records regulations: The Federal rules restrict any use of the information to criminally investigate or prosecute any alcohol or drug abuse patient.[facility] HospitalIn the event this information is protected by the Federal Confidentiality of Alcohol and Drug Abuse Patient Records regulations: The Federal rules restrict any use of the information to criminally investigate or prosecute any alcohol or drug abuse patient.[facility] HospitalIn the event this information is protected by the Federal Confidentiality of Alcohol and Drug Abuse Patient Records regulations: The Federal rules restrict any use of the information to criminally investigate or prosecute any alcohol or drug abuse patient.[facility] HospitalIn the event this information is protected by the Federal Confidentiality of Alcohol and Drug Abuse Patient Records regulations: The Federal rules restrict any use of the information to criminally investigate or prosecute any alcohol or drug abuse patient.[facility] HospitalIn the event this information is protected by the Federal Confidentiality of Alcohol and Drug Abuse Patient Records regulations: The Federal rules restrict any use of the information to criminally investigate or prosecute any alcohol or drug abuse patient.[facility] HospitalIn the event this information is protected by the Federal Confidentiality of Alcohol and Drug Abuse Patient Records regulations: The Federal rules restrict any use of the information to criminally investigate or prosecute any alcohol or drug abuse patient.[facility] HospitalIn the event this information is protected by the Federal Confidentiality of Alcohol and Drug Abuse Patient Records regulations: The Federal rules restrict any use of the information to criminally investigate or prosecute any alcohol or drug abuse patient.[facility] FOR RECORDS PERTAINING TO PATIENTS WHO [...] BE BASED ON THE PRIMARY CLINICAL RECORDS. [facility] [employer] [facility]. provides no warranty or guarantee of the accuracy or completeness of information in this document.
--- NOTE | 2025-03-06 14:55 | PM.CN ---
Consult Note: HPI Data of Consult Patient: new to practice Consult date: 03/06/25 Requesting Physician: Mahsa Kamara NP Primary Care Provider: SANJAY ROBLEDO Consult Narrative Reason for consult: establish care for back pain and left rib cage pain Narrative: Charles Stewart a 69 year old male presents for evaluation of thoracic and left chest wall pain. Pt has a longstanding hx of back pain and recently underwent T8-L2 PSIF with t12 partial corpectomy dt T11 and T12 compression fractures. Patient had a fall with injury and resulting rib fractures to left 5-7 ribs november 2024. Pt is a poor historian, present for exam and involved in care planning. 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 Patient complaining of severe pain uncontrolled with gabapentin, tylenol, robaxin. Per he cannot take oxycodone or butrans due to significant reactions/allergies, however patient reports oxycodone was helpful despite drowsiness and hallucinations. Pain today 8/10 sharp burning to left middle back. notes improvement in pain with forward flexion and reclining. increased pain with car ride, sitting, lifting, twisting. cc:: CC: Mahsa Kamara NP Review of Systems ROS Musculoskeletal Reports: back pain [facility] Medical History (Updated 03/06/25 @ 14:55 by Mahsa Kamara NP) S/P abdominal paracentesis ?Z98.890 - Other specified postprocedural states (ICD-10) History of tobacco abuse ?Z87.891 - Personal history of nicotine dependence (ICD-10) Sinus bradycardia ?R00.1 - Bradycardia, unspecified (ICD-10) Pleural effusion, right ?J90 - Pleural effusion, not elsewhere classified (ICD-10) Liver cirrhosis secondary to JARAMILLO (nonalcoholic steatohepatitis) ?K75.81 - Nonalcoholic steatohepatitis (JARAMILLO) (ICD-10) ?K74.60 - Unspecified cirrhosis of liver (ICD-10) Esophageal varices ?I85.00 - Esophageal varices without bleeding (ICD-10) Hyponatremia ?E87.1 - Hypo-osmolality and hyponatremia (ICD-10) Metabolic syndrome X ?E88.810 - Metabolic syndrome (ICD-10) Incisional hernia ?K43.2 - Incisional hernia without obstruction or gangrene (ICD-10) GERD (gastroesophageal reflux disease) ?K21.9 - Gastro-esophageal reflux disease without esophagitis (ICD-10) Weight loss ?R63.4 - Abnormal weight loss (ICD-10) Barretts esophagus ?K22.70 - Tipton's esophagus without dysplasia (ICD-10) Pleural effusion, bilateral ?J90 - Pleural effusion, not elsewhere classified (ICD-10) Surgical History H/O cataract removal with insertion of prosthetic lens ?Z98.49 - Cataract extraction status, unspecified eye (ICD-10) ?Z96.1 - Presence of intraocular lens (ICD-10) Status post thoracentesis ?Z98.890 - Other specified postprocedural states (ICD-10) S/P abdominal paracentesis ?Z98.890 - Other specified postprocedural states (ICD-10) Hx of cholecystectomy ?Z90.49 - Acquired absence of other specified parts of digestive tract (ICD-10) H/O colonoscopy ?Z98.890 - Other specified postprocedural states (ICD-10) H/O esophagogastroduodenoscopy ?Z98.890 - Other specified postprocedural states (ICD-10) Family History Mother Family history of COPD (chronic obstructive pulmonary disease) Family history of hypertension Father Family history of hypertension Social History Within the past year, how often did you have a drink containing alcohol: never Within the past year, how often did you have six or more drinks on one occasion: never Score interpretation: A score less than 4 is consistent with normal alcohol consumption. 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 Little interest or pleasure in doing things: not at all Feeling down, depressed, or hopeless: not at all Feel stressed/tense/nervous/anxious/difficulty sleeping: not at all Meds Home Medications and Allergies Home Medications ?Medication ?Instructions ?Recorded ?Confirmed ?Type multivitamin 1 tab PO DAILY 10/03/23 11/19/24 History acyclovir 400 mg tablet 400 mg PO Q12H 11/19/24 11/19/24 History aspirin 81 mg capsule 81 mg PO DAILY 11/19/24 11/19/24 History buprenorphine 10 mcg/hour weekly 1 patch transdermal Q7D 11/19/24 11/19/24 History transdermal patch ciprofloxacin HCl 500 mg tablet 500 mg PO BID 11/19/24 11/19/24 History famotidine 20 mg tablet 20 mg PO Q12H 11/19/24 11/19/24 History magnesium oxide 400 mg PO TID 11/19/24 11/19/24 History methocarbamol 750 mg tablet 750 mg PO BID 11/19/24 11/19/24 History midodrine 10 mg tablet 10 mg PO TIDWM 11/19/24 11/19/24 History mirtazapine 7.5 mg tablet 7.5 mg PO BEDTIME 11/19/24 11/19/24 History oxycodone 5 mg tablet 5 mg PO Q12H PRN pain 11/19/24 11/19/24 History pantoprazole 40 mg tablet,delayed 40 mg PO DAILY 11/19/24 11/19/24 History release sulfamethoxazole 800 1 tab PO .COMPLEX 11/19/24 11/19/24 History mg-trimethoprim 160 mg tablet tacrolimus 5 mg capsule, 5 mg PO Q12H 11/19/24 11/19/24 History immediate-release tamsulosin 0.4 mg capsule 0.4 mg PO BEDTIME 11/19/24 11/19/24 History trazodone 50 mg tablet 50 mg PO BEDTIME 11/19/24 11/19/24 History ursodiol 300 mg capsule 300 mg PO Q8H 11/19/24 11/19/24 History Allergies Allergy/AdvReac Type Severity Reaction Status Date / Time No Known Drug Allergies Allergy Verified 11/19/24 02:23 Exam Constitutional Documenting provider has reviewed patient's vital signs: yes Common normals: alert General appearance: cooperative, anxious, disheveled and ill appearing Nutritional appearance: thin Orientation/consciousness: Yes oriented to person, Yes oriented to place and Yes oriented to time HENMT Common normals: normocephalic, hearing grossly normal bilaterally and moist oral mucous membranes Head and scalp: normocephalic Eye Common normals: PERRL Pupil: PERRL Neck & C-Spine Common normals: full ROM General: normal visual inspection Chest Common normals: inspection of chest normal Respiratory Common normals: normal respiratory effort, no retractions and no use of accessory muscles Back & Pelvis Common normals: thoraco-lumbar ROM abnormal Thoracic spine/upper back: ROM limited, pain with ROM and thoracic spinal tenderness Other: intercostal neuralgia noted to left T5-8 significant hyperalgesia to touch thoracic scoliosis noted on exam Neuro Common normals: oriented x3 Sensorium/orientation: alert Gait (neuro): antalgic and assistive device used walker Psych Common normals: mental status grossly normal, thought process normal, cooperative, affect normal, speech normal and activity/motor behavior normal Speech: normal speech Thought process: normal thought process Results Additional Findings Additional findings: If on a controlled substance or opioids, I have checked an [place] report on this patient and there are no aberrancies noted in the prescribing history.??If on a controlled substance or opioid a drug screen was completed and reviewed within the last year, and if there has not been a drug screen completed we ordered one today to monitor higher risk, state monitored pain medication use. As part of providing excellent, safe, comprehensive care, the following was completed at our patient's visit: 1. A medication reconciliation and review to ensure accurate knowledge of current/active medications, including asking our patients to inform us about any [id number] medications or herbal remedies/nutritional supplements/alternative remedies. 2. A review to specifically ensure our patients have had annual screening for screening for depression, screening for tobacco use, and screening for unhealthy alcohol use. For concerning screenings had a discussion with the patient, provided patient education, and recommended follow-up with primary care provider when appropriate. If patient noted with a risk of falling, they received education on strength, gait, and balance training to prevent future risk of falling. Portions of this note may have been carried over from the previous visit and updated as appropriate. Please note this office utilizes paper charting in addition to the electronic medical record. A list of current medications, vitals, and PMH is available there as the clinical staff outside of myself do not have access to [employer] charting during the clinic day operations. As part of providing quality comprehensive care the current medications, vitals, and PMH were reviewed in the paper chart. Assessment and Plan Assessment and Plan (1) Intercostal neuralgia: (2) Thoracic radiculopathy: (3) Thoracic stenosis: (4) Failed back syndrome: Plan 69 year old male with hx of alcohol abuse post liver transplant, post thoracic fusion and rib fracture presents for evaluation of severe pain. unfortunately patient is a not a candidate for oral opioids due to abuse hx and liver transplant, combined with reactions to oxycodone. with allergy to butrans we will not retrial at a lower dose. can increase gabapentin 300mg qid. at this time i am recommending the patient be evaluated by Dr Sosa for consideration of interventional therapy due to complexity of this patients pain and imaging results. see paper chart for further details. uds obtained. f/u with Dr Sosa
== END 2025-03-06 13:55 | disposition home or self-care (01) ==
LOC: PM 13:55
PROVIDERS: PCP Internal Medicine; Visit Provider Nurse Practitioner
DX: G58.0 Intercostal neuropathy (principal); M48.04 Spinal stenosis, thoracic region; M96.1 Postlaminectomy syndrome, not elsewhere classified
CPT/HCPCS: G0463

== ENCOUNTER 2025-03-17 12:22 | Outpatient (OUT) | payer MEDICARE, SELFPAY ==
--- OUTSIDE RECORDS SUMMARY | 2025-03-17 12:24 | XMS_ITS | Encounter Summary ---
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 Name Role Phone Rusty Delgado MD Unavailable [phone] Rusty Delgado MD Primary Care Provider Encounter Details DateTypeDepartmentCare Team (Latest Contact Info)Ftrrjxbvxby92/24/2025Telephone [facility] [address] [place] [address] Rusty Delgado MD [address] [facility] [address] [place] [address] Social History Tobacco UseTypesPacks/DayYears UsedDateSmoking Tobacco: FormerCigarettesQuit: 1990Smokeless Tobacco: NeverAlcohol UseStandard Drinks/WeekCommentsYes0 (1 standard drink = 0.6 oz pure alcohol)2-3 times per week, 1-2 drinks at a time B1300 Health LiteracyAnswerDate RecordedHow often do you need to have someone help you when you read instructions, pamphlets, or other written material from your doctor or pharmacy?Rujgif3912/12/2023Social Connection and Isolation Panel AnswerDate RecordedIn a typical week, how many times do you talk on the phone with family, friends, or neighbors?Never12/12/2023How often do you get together with friends or relatives?Never12/12/2023How often do you attend confucianist or moravian services?Never12/12/2023o you belong to any clubs or organizations such as confucianist groups, unions, fraternal or athletic groups, or school groups?No 12/12/2023How often do you attend meetings of the clubs or organizations you belong to?Never12/12/2023re you , , , , never , or living with a partner?Gcirmqk1512/12/2023UDIT-CAnswerDate RecordedQ1: How often do you have a drink containing alcohol?Never12/12/2023Q2: How many drinks containing alcohol do you have on a typical day when you are drinking? Patient does not drink12/12/2023Q3: How often do you have six or more drinks on one occasion?Never12/12/2023Overall Financial Resource Strain (CARDIA)AnswerDate RecordedHow hard is it for you to pay for the very basics like food, housing, medical care, and heating?Not hard at all12/12/2023HQ-2AnswerDate Recorded Patient Health Questionnaire-2 Loseg129[facility] of Occupational Health - Occupational Stress QuestionnaireAnswerDate RecordedDo you feel stress - tense, restless, nervous, or anxious, or unable to sleep at night because your mind is troubled all the time - these days?To some wiwrqt6012/12/2023Exercise Vital SignAnswerDate RecordedOn average, how many days per week do you engage in moderate to strenuous exercise (like a brisk walk)?0 days12/12/2023On average, how many minutes do you engage in exercise at this level?0 min12/12/2023Hunger Vital SignAnswerDate RecordedWithin the past 12 months, you worried that your food would run out before you got the money to buymore.Never true12/12/2023 Within the past 12 months, the food you bought just didn't last and you didn't have money to get more.Never true12/12/2023RAPARE - TransportationAnswerDate RecordedIn the past 12 months, has lack of transportation kept you from medical appointments or from getting medications?No12/12/2023In the past 12 months, has lack of transportation kept you from meetings, work, or from getting things needed for daily living?No12/12/2023Housing Stability Vital SignAnswerDate RecordedIn the last 12 months, was there a time when you were not able to pay the mortgage or rent on time?12/12/2023In the past 12 months, how many times have you moved where you were living?t any time in the past 12 months, were you homeless or living in a long term (including now)?No12/12/2023Sex and Gender InformationValueDate RecordedSex Assigned at SkpqmSdvy29/27/2024 1:36 PM EDTLegal OuuNuqc3606/29/2022 11:50 PM EDTGender HbbxvohmFmtd47/27/2024 1:36 PM EDTSexual RqmqhsivkycVgxxjmh23/27/2024 1:36 PM EDTdocumented as of this encounter Miscellaneous Notes * Telephone Encounter - Rachel Colon MA - 03/10/2025 11:15 AM EST Hi, this is Mahsa. I am an occupational therapist with a [facility]. I was just calling to report a fall of a patient of Dr Delgado's. Charles Silvestre. Birthday is 1855. He reported that he stood up on Monday night his legs gave out. And he Have you have lowered himself to the Ground, no injury, no bruising. Was able to get himself back up and just educated him on his walker. Use any questions, give me a call back. It is [phone], thank you. documented in this encounter Plan of Treatment Not on file documented as of this encounter Visit Diagnoses Not on filedocumented in this encounter Care Teams Team MemberRelationshipSpecialtyStart DateEnd Date Rusty Delgado MD [address] [facility] [address] [place] [address] PCP - [employer]04/17/22 Rusty Delgado MD [address] [place] [address] PCP - GeneralInternal Medicine11/23/22documented as of this encounter
--- OUTSIDE RECORDS SUMMARY | 2025-03-17 12:25 | XMS_ITS | Encounter Summary ---
Author Organization [facility] Address [address] [place] [address] Care Team Providers Care Poker In Name Role Phone Rusty Delgado MD Unavailable [phone] Rusty Delgado MD Primary Care Provider [phone] Encounter Details DateTypeDepartmentCare Team (Latest Contact Info)Edbegqvklqk59/20/2025Telephone [facility] [address] [place] [address] Rusty Delgado MD [address] [place] [address] Social History Tobacco UseTypesPacks/DayYears UsedDateSmoking Tobacco: FormerCigarettesQuit: 1990Smokeless Tobacco: NeverAlcohol UseStandard Drinks/WeekCommentsYes0 (1 standard drink = 0.6 oz pure alcohol)2-3 times per week, 1-2 drinks at a time B1300 Health LiteracyAnswerDate RecordedHow often do you need to have someone help you when you read instructions, pamphlets, or other written material from your doctor or pharmacy?Buukfj3012/12/2023Social Connection and Isolation Panel AnswerDate RecordedIn a typical week, how many times do you talk on the phone with family, friends, or neighbors?Never12/12/2023How often do you get together with friends or relatives?Never12/12/2023How often do you attend zoroastrianism or jehovah's witness services?Never12/12/2023o you belong to any clubs or organizations such as zoroastrianism groups, unions, fraternal or athletic groups, or school groups?No 12/12/2023How often do you attend meetings of the clubs or organizations you belong to?Never12/12/2023re you , , , , never , or living with a partner?Lmyinpo2712/12/2023UDIT-CAnswerDate RecordedQ1: How often do you have a [...] hard at all12/12/2023HQ-2AnswerDate Recorded Patient Health Questionnaire-2 Jgeag747[facility] [place] of Occupational Health - Occupational Stress QuestionnaireAnswerDate RecordedDo you feel stress - tense, restless, nervous, or anxious, or unable to sleep at night because your mind is troubled all the time - these days?To some fohtrr9112/12/2023Exercise Vital SignAnswerDate RecordedOn average, how many days [...] were you homeless or living in a senior living (including now)?No12/12/2023Sex and Gender InformationValueDate RecordedSex Assigned at LdsffGowi11/27/2024 1:36 PM EDTLegal GjoFxvm9006/29/2022 11:50 PM EDTGender JerhijgsYfnb47/27/2024 1:36 PM EDTSexual GdplgemcqejSgmjzxh77/27/2024 1:36 PM EDTdocumented as of this encounter Miscellaneous Notes * Telephone Encounter - Sarina Morris - 03/06/2025 11:14 AM EST Bev from [facility] called and just wanted Dr. Delgado to know that Charles cancelled his appointment with them today. documented in this encounter Plan of Treatment Not on file documented as of this encounter Visit Diagnoses Not on filedocumented in this encounter Care Teams Team MemberRelationshipSpecialtyStart DateEnd Date Rusty Delgado MD [address] [place] [address] PCP - [employer]04/17/22 Rusty Delgado MD [address] [place] [address] PCP - GeneralInternal Medicine11/23/22documented as of this encounter
--- OUTSIDE RECORDS SUMMARY | 2025-03-17 12:25 | XMS_ITS | Clinical Summary ---
Author Organization [facility] Address [address] [place] [address] Phone Care Team Providers Care Transportation Planner Name Role Phone Danny Rusty Gomez Primary Care Provider [phone] Allergies Active AllergyReactionsCriticalityNoted DateCommentsDexmedetomidine Hcl In Nacl 01/14/2025 Medications MedicationSigDispense QuantityRefillsLast FilledStart DateEnd DateStatus multivitamin w/ minerals (THERA M PLUS) Tab/Cap tablet Take 1 each (1 tablet total) by mouth in the morning.5Active sulfamethoxazole-trimethoprim (BACTRIM) 800-160 MG per tablet double-strength Indications:prophylaxisTake 1 tablet by mouth 3 (three) times a week Indications: prophylaxis.5Active ursodiol (ACTIGALL) 300 MG capsule Take 1 capsule (300 mg total) by mouth 3 (three) times a day.5Active ascorbic acid (VITAMIN C) 500 MG tablet Take 1 tablet (500 mg total) by mouth in the morning.5Active dicyclomine (BENTYL) 10 MG capsule Take 1 capsule (10 mg total) by mouth 4 (four) times a day as needed (stomach abdominal pain for spasms).5Active furosemide (LASIX) 20 MG tablet Take 1 tablet (20 mg total) by mouth in the morning and 1 tablet (20 mg total) in the evening. Takebefore meals.5Active gabapentin (NEURONTIN) 300 MG capsule Take 1 capsule (300 mg total) by mouth 3 (three) times a day as needed (back pain).5Active HYDROmorphone HCl (DILAUDID) 1 MG/ML liquid Indications:PainMay 0.25 mL (0.25 mg total) by PO/Per Tube route every 6 (six) hours as needed (0.25 mg for moderate pain, 0.5mg for severe pain). May also 0.5 mL (0.5 mg total) every 6 (six) hours as needed (0.25 mg for moderate pain, 0.5mg for severe pain). Indications: Pain. Max Daily Amount: 3 mg. 30 mL 02/03/2025tive ipratropium-albuterol (DUO-NEB) 0.5-2.5 mg/3 mL nebulizer Inhale 3 mL Every 6 hours as needed. for shortness of breath or wheezing. 02/03/2025tive Letermovir (PREVYMIS) 480 MG tablet Take 1 tablet (480 mg total) by mouth every morning.02/04/2025tive lidocaine (LIDOCARE) 4 % patch patch Place 2 patches on the skin in the morning.5Active magnesium oxide 400 (240-250 Mg) MG tablet Take 2 tablets (800 mg total) by mouth 3 (three) times a day.02/03/2025tive methocarbamol (ROBAXIN) 500 MG tablet Take 1 tablet (500 mg total) by mouth 4 (four) times a day as needed for muscle spasms.02/03/2025tive metoclopramide (REGLAN) 5 MG tablet Take 1 tablet (5 mg total) by mouth 2 (two) times a day. May also take 1 tablet (5 mg total) 3 (three) times a day as needed (nausea).02/03/2025tive mirtazapine (REMERON) 7.5 MG tablet Take 1 tablet (7.5 mg total) by mouth nightly.02/03/2025tive pantoprazole (PROTONIX) 40 MG EC/DR tablet Take 1 tablet (40 mg total) by mouth Daily at 6am.5Active tacrolimus (PROGRAF) 1 MG capsule Take 3 capsules (3 mg total) by mouth in the morning and 3 capsules (3 mg total) before bedtime.5Active enoxaparin (LOVENOX) 40 MG/0.4ML solution prefilled syringe Indications:Deep Vein Thrombosis ProphylaxisInject 0.4 mL (40 mg total) under the skin daily for 30 days Indications: Treatment to Prevent DeepVein Thrombosis.Expired Active Problems ProblemNoted DateDiagnosed DateCritical illness guserhyg76/15/2025 Encounters DateTypeDepartmentCare GslyVrbfkodvfel11/20/2025Plan of Care Documentation [address] [address] 01/27/2025Plan of Care Documentation [address] [address] 01/20/2025Plan of Care Documentation [address] [address] 01/17/2025Plan of Care Documentation [address] [address] 01/14/2025 6:40 PM EDT - 02/04/2025 3:01 PM EDTHospital Encounter [address] [address] Jonathan Cruz DO Aguilera, Richard G, MD Critical illness myopathy (Primary Dx) [facility]position[facility] Last 3 Months Immunizations ImmunizationAdministration DatesNext DueHep B, Inxtkstnmsv24/14/2025,06/15/2024, 05/02/2024Influenza Whole02/02/2025(Deferred: Offered and declined - refuse) Influenza, Lfedsojmplb55/10/2023Moderna SARS-CoV-2 Qrxrraceeeg05/10/2021, 05/27/2020neumococcal Gcfzxssuq59/18/2024SV, Phtilgftvln96/24/2025Zoster 04/30/2022 Social History Tobacco UseTypesPacks/DayYears UsedDateSmoking Tobacco: FormerCigarettes Smokeless Tobacco: Never Tobacco Cessation:Counseling Given: Not Answered Alcohol UseStandard Drinks/WeekCommentsNot Currently0 (1 standard drink = 0.6 oz pure alcohol)2-3 drinks every nightAHC UtilitiesAnswerDate RecordedIn the past 12 months has the electric, gas, oil, or water company threatened to shut off services in your home?No01/15/2025Social Connection and Isolation PanelAnswer Date RecordedIn a typical week, how many times do you talk on the phone with family, friends, or neighbors?More than three times a week01/15/2025How often do you get together with friends or relatives?Once a week01/15/2025How often do you attend scientology or moravian services?Never01/15/2025Do you belong to any clubs or organizations such as scientology groups, unions, fraternal or athletic groups, or school groups?No01/15/2025How often do you attend meetings of the clubs or organizations you belong to?Never01/15/2025re you , , , , never , or living with a partner?Owshfvs9901/15/2025UDIT-C AnswerDate RecordedQ1: How often do you have a drink containing alcohol?Never 01/14/2025Q2: How many drinks containing alcohol do you have on a typical day when you are drinking?Patient does not drink01/14/2025Q3: How often do you have six or more drinks on one occasion?Never01/14/2025Overall Financial Resource Strain (CARDIA)AnswerDate RecordedHow hard is it for you to pay for the very basics like food, housing, medical care, and heating?Not hard at all01/15/2025 [employer] - Occupational Stress Questionnaire AnswerDate RecordedDo you feel stress - tense, restless, nervous, or anxious, or unable to sleep at night because yourmind is troubled all the time - these days? Not at all02/04/2025Hunger Vital SignAnswerDate RecordedWithin the past 12 months, you worried that your food would run out before you got the money to buy more.Never true01/15/2025Within the past 12 months, the food you bought just didn't last and you didn't have money to get more.Never true01/15/2025Housing Stability Vital SignAnswerDate RecordedIn the last 12 months, was there a time when you were not able to pay the mortgage or rent on time?No01/15/2025In the past 12 months, how many times have you moved where you were living? At any time in the past 12 months, were you homeless or living in a intermediate (including now)?No01/15/2025Domestic Abuse AssessmentAnswerDate RecordedDo you feel safe in your relationships at home?Yes01/14/2025Physical AbuseDenies 01/14/2025HRSN Domestic Abuse - Type of AbuseNot on file01/14/2025HRSN Domestic Abuse - Time FrameNot on file01/14/2025HRSN Domestic Abuse - Signs and Symptoms Not on file01/14/2025Verbal JhrpoZwsdnt39/30/2025HRSN Domestic Abuse - Reported ToNot on file01/14/2025SM SDOH Transportation SourceAnswerDate RecordedHas lack of transportation kept you from medical appointments or from getting medications?No02/04/2025Has lack of transportation kept you from meetings, work, or from getting things needed for daily living?No02/04/2025HRSN Depression PHQ-2 AnswerDate RecordedFeeling down, depressed, or coawrlnm2379/21/2025Little interest or pleasure in doing ruxmlk1083Sex and Gender InformationValue Date RecordedSex Assigned at BirthNot on fileLegal WuhTblp8209/27/2024 2:00 PM EDT Gender IdentityNot on fileSexual OrientationNot on file Last Filed Vital Signs Vital SignReadingTime TakenCommentsBlood Ttgzckvg246/7902/04/2025 7:00 AM EDT Vzoey671202/04/2025 7:00 AM CHJRqfiomubqyy19.4 ??C (97.6 ??F)02/04/2025 7:00 AM EDTRespiratory Yntp5009 7:00 AM EDTOxygen Ajnaojasso98%02/04/2025 7:00 AM EDTInhaled Oxygen Concentration--Fhohwk45.6 kg (138 lb)02/04/2025 4:00 AM EDT Zdassf039.3 cm (5' 9 )01/15/2025 4:24 PM EDTBody Mass Index20.3810 4:24 PM EDT Plan of Treatment Health MaintenanceDue DateLast DoneCommentsCT Gflwenbgwudx45/18/1954FIT-DNA (Cologuard)1953FIT1953FOBT08/02/19536478Nkhqgchjzewaz74/18/1954nnual Visit Topic1954Hepatitis C Zlbnowhll78/18/1972Pneumococcal Vaccine: 65+ Years (1 of 2 - PCV)bdominal Aortic Aneurysm (AAA) Zqwviojxu12/18/2019DTaP/Tdap/Td Vaccines (2 - Td or Tdap) Bgiepruxhey54olorectal Cancer Awiqkztyn52/17/2035Hepatitis A VaccinesAged Out08/28/2024, 05/02/2024No longer eligible based on patient's age to complete this topicHepatitis B OvnhtjttZafrevzjx58/14/2025, 06/15/2024, 05/02/2024HIB VaccinesAged OutNo longer eligible based on patient's age to complete this topicHPV VaccinesAged OutNo longer eligible based on patient's age to complete this topicIPV VaccinesAged OutNo longer eligible based on patient's age to complete this topicMeningococcal VaccineAged OutNo longer eligible based on patient's age to complete this topic Procedures Procedure NamePriorityDate/TimeAssociated DiagnosisCommentsMAGNESIUMRoutine 02/03/2025 4:48 AM EDT GAMMA LSXgpveiz43/20/2025 4:48 AM EDT C-REACTIVE FOLTTRETdwsjun50/20/2025 4:48 AM EDT COMPREHENSIVE METABOLIC NSRGLFqitgyt19/20/2025 4:48 AM EDT CMV DNA, QUANTITATIVE, HLHKwrfnry32/20/2025 4:48 AM EDT CBC WITH AUTO GVABIIDUIJGMBsigkka89/20/2025 4:48 AM EDT N-TERMINAL FGFUYSTzgdwfl09/20/2025 4:48 AM EDT TACROLIMUS IOSMVWsihqdz00/20/2025 4:48 AM EDT RALQLNRQQHQyvcaaj83/20/2025 4:48 AM EDT XR CHEST 1 MTXKWT4701/31/2025 12:03 PM EDT WZFOYSVVVCpdwbgr66/16/2025 4:18 AM EDT GAMMA MGYslbjxi70/16/2025 4:18 AM EDT C-REACTIVE WGFEJEUTpthsmp56/16/2025 4:18 AM EDT COMPREHENSIVE METABOLIC YYRXARjmfzco85/16/2025 4:18 AM EDT CBC WITH AUTO QSVTGLZQUKWDCkigpls55/16/2025 4:18 AM EDT N-TERMINAL QZLOBZHazulql74/16/2025 4:18 AM EDT TACROLIMUS FGIZYBunzgjx19/16/2025 4:18 AM EDT GMUPNNZUILOthjqyk91/16/2025 4:18 AM EDT JAMGTXIQDXndbfbo51/13/2025 5:54 AM EDT GAMMA HVIiwwphl12/13/2025 5:54 AM EDT C-REACTIVE JYWCCQBDlohtdx64/13/2025 5:54 AM EDT COMPREHENSIVE METABOLIC FJTNXGexhxid85/13/2025 5:54 AM EDT CMV DNA, QUANTITATIVE, UTJHjuyphd75/13/2025 5:54 AM EDT CBC WITH AUTO OMYYEDWLXPZOEhljgst66/13/2025 5:54 AM EDT N-TERMINAL KMGFKMXaysiex46/13/2025 5:54 AM EDT TACROLIMUS ZICMHZiszsyr91/13/2025 5:54 AM EDT UMYKJLKCEUYknwriw31/13/2025 5:54 AM EDT C-REACTIVE PGFZEDGQjulugc53/12/2025 5:30 AM EDT CBC WITH AUTO ONEZEDJTFNMAIimbaio68/12/2025 5:30 AM EDT HIVGWVWmjivnh85/12/2025 5:30 AM EDT OVGZGAHSxylryh43/12/2025 5:30 AM EDT GCFXtodscc44/11/2025 5:50 AM EDT URINALYSIS WITH MICROSCOPIC WITH REFLEX TO CULTURE, UYGEVQEEqkzchi20/10/2025 3:[address] LUMBAR SPINE WO MJISZGJBPXVT19/10/2025 2:[address] THORACIC SPINE WO LXMGMCIRFZXE96/10/2025 2:16 PM EDT XR CHEST 1 KZMCKY7801/24/2025 12:58 PM EDT TYPE AND ONRAFRWsarwer25/10/2025 5:28 AM EDT PAMPzkseoo86/10/2025 5:28 AM EDT MVFHQYQMRXrpxysi38/09/2025 9:48 AM EDT GAMMA TRBthjrry03/09/2025 9:48 AM EDT C-REACTIVE IDKDYMBAhtdotl57/09/2025 9:48 AM EDT COMPREHENSIVE METABOLIC BROEGOsuhyhm37/09/2025 9:48 AM EDT CBC WITH AUTO CNZXTRIKJKIEQifvslo15/09/2025 9:48 AM EDT N-TERMINAL IDEVBLFmocbdy50/09/2025 9:48 AM EDT TACROLIMUS MHIHGFakouum03/09/2025 9:48 AM EDT MTIFUXSHPZRhsyzeb84/09/2025 9:48 AM EDT VPXDFQMUIUugahfy78/06/2025 4:30 AM EDT GAMMA BWNpfswdn72/06/2025 4:30 AM EDT C-REACTIVE OZGGILEUmwsapt67/06/2025 4:30 AM EDT COMPREHENSIVE METABOLIC BDJBYWnheicg08/06/2025 4:30 AM EDT CMV DNA, QUANTITATIVE, PXOVqwdbto87/06/2025 4:30 AM EDT CBC WITH AUTO EOJCTPTRAATIUmwtako13/06/2025 4:30 AM EDT N-TERMINAL KULMKGBcttxmg47/06/2025 4:30 AM EDT TACROLIMUS QIMRASjkmonm79/06/2025 4:30 AM EDT CBZZASSHIGUkvscrm56/06/2025 4:30 AM EDT C-REACTIVE AJWNCFAGvkpovl51/05/2025 11:11 AM EDT SEDIMENTATION RATE, LDAWVBZVNYgbycbd65/05/2025 11:11 AM EDT CBC WITH AUTO YVZOOMWYDSQZDgeiwct52/05/2025 11:11 AM EDT POCT GGLRZSSGhexaxy42/04/2025 8:29 PM EDT POCT FNFYYDZEdeluxd18/04/2025 7:46 AM EDT XR ABDOMEN KUB W OBL OR MSKONUQD11/03/2025 2:03 PM EDT XR ABDOMEN KUB W OBL OR NIXHRLVW55/02/2025 9:26 PM EDT XR ABDOMEN KUB W OBL OR VYBZGIER92/02/2025 5:27 PM EDT XR ABDOMEN KUB W OBL OR ZKEERYFW99/02/2025 1:21 PM EDT VCIYKGUMBMmphbqx14/02/2025 4:47 AM EDT GAMMA KQVvfrhhf37/02/2025 4:47 AM EDT C-REACTIVE YNJCUFEEvleipr47/02/2025 4:47 AM EDT COMPREHENSIVE METABOLIC SNKJLFncdzgl65/02/2025 4:47 AM EDT CBC WITH AUTO HHOXTYMXERMWCrmszns23/02/2025 4:47 AM EDT N-TERMINAL FBKVZSJimkdpe61/02/2025 4:47 AM EDT TACROLIMUS QZAKSUlshqcq86/02/2025 4:47 AM EDT JNIYYPLOYOYlxohld84/02/2025 4:47 AM EDT XR CHEST 1 QJAHEY9701/15/2025 7:45 PM EDT TACROLIMUS SXVFIYwapzwz95/01/2025 5:30 AM EDT C-REACTIVE MCKQEQRGbtjgui87/01/2025 5:30 AM EDT GAMMA ETGbqxsmy62/01/2025 5:30 AM EDT SYIAAWQZSYytqgxl86/01/2025 5:30 AM EDT COMPREHENSIVE METABOLIC ASJRTRryozcc16/01/2025 5:30 AM EDT CBC WITH AUTO DKASZKPLOFMXTnpoemr63/01/2025 5:30 AM EDT from Last 3 Months Results * (ABNORMAL) N-Terminal ProBNP (02/03/2025 4:48 AM EDT) Only the most recent of6 resultswithin the time period is included. ComponentValueRef RangeTest MethodAnalysis TimePerformed AtPathologist Signature NT PRO EZD717(H)<125 pg/mL02/03/2025 9:01 AM EDTFAIRVIEW LABORATORYSpecimen (Source)Anatomical Location / LateralityCollection Method / VolumeCollection TimeReceived TimeBlood (Blood, Venous)02/03/2025 4:48 AM EDT1 8:07 AM EDT Narrative Authorizing ProviderResult TypeResult StatusSadenise Cruz [facility] BLOOD ORDERABLESFinal ResultPerforming OrganizationAddressCity/State/ZIP CodePhone Number [facility] [address] [place] [address] [facility] [address] [place] [address] * (ABNORMAL) CBC AUTO DIFFERENTIAL (02/03/2025 4:48 AM EDT) Only the most recent of9 resultswithin the time period is included. ComponentValueRef RangeTest MethodAnalysis TimePerformed AtPathologist Signature WBC14.53(H)3.70 - 11.00 k/uL02/03/2025 8:45 AM EDTFAIRVIEW LABORATORYRBC2.41(L) 4.20 - 6.00 m/uL02/03/2025 8:45 AM EDTFAIRVIEW LABORATORYHemoglobin7.9(L)13.0 - 17.0 g/dL02/03/2025 8:45 AM [facility] UVDQCQQNJIAtzzeuylte97.2(L)39.0 - 51.0 % 02/03/2025 8:45 AM [facility] JVVLGIGSQIWHT433.6(H)80.0 - 100.0 fL02/03/2025 8:45 AM [facility] SHZPVIEMMRCFQ10.826.0 - 34.0 pg02/03/2025 8:45 AM [facility] LVTXFBGQGCDETJ12.330.5 - 36.0 g/dL02/03/2025 8:45 AM [facility] LABORATORYRDW-CV20.1(H)11.5 - 15.0 %02/03/2025 8:45 AM [facility] Uvnpladvk153(L)150 - 400 k/uL02/03/2025 8:45 AM [facility] RSILOTTILTZGH08.49.0 - 12.7 fL02/03/2025 8:45 AM [facility] LABORATORYNeutrophils Vlkavjift11.3% 02/03/2025 8:45 AM [facility] LABORATORYNeutrophils Lglaptli72.82(H)1.45 - 7.50 k/uL02/03/2025 8:45 AM [facility] LABORATORYLymphocytes % by manual count7.0% 02/03/2025 8:45 AM [facility] LABORATORYLymphocytes Absolute1.011.00 - 4.00 k/uL02/03/2025 8:45 AM [facility] LABORATORYMonocytes % by manual count=5.0% 02/03/2025 8:45 AM [facility] LABORATORYMonocytes Absolute0.73<0.87 k/uL 02/03/2025 8:45 AM [facility] LABORATORYEosinophils Manual3.7%02/03/2025 8:45 AM EDTAR[facility] LABORATORYEosinophils Absolute0.54(H)<0.46 k/uL02/03/2025 8:45 AM [facility] LABORATORYBasophils manual0.3%02/03/2025 8:45 AM EDTARAVISTA [facility] LABORATORYBasophils Absolute0.04<0.11 k/uL10/ 8:45 AM EDTFAIRVIEW LABORATORYImmature grans %2.7%02/03/2025 8:45 AM EDTFAIRVIEW LABORATORYGrans (Absolute)0.39(H)<0.10 k/uL02/03/2025 8:45 AM EDTFAIRVIEW LABORATORYNRBC % Auto 0.0/100 WBC02/03/2025 8:45 AM EDTFAIRVIEW LABORATORYAbsolute NRBC<0.01<0.01 k/uL 02/03/2025 8:45 AM EDTFAIRVIEW LABORATORYDifferential XsrePmwh82/20/2025 8:45 AM EDTFAIRVIEW LABORATORYSpecimen (Source)Anatomical Location / Laterality Collection Method / VolumeCollection TimeReceived TimeBlood (Blood, Venous) 02/03/2025 4:48 AM EDT1 8:07 AM EDT Narrative Authorizing ProviderResult TypeResult Suzan Cruz [facility] BLOOD ORDERABLESFinal ResultPerforming OrganizationAddressCity/State/ZIP CodePhone Number [facility] [address] [place] [address] [facility] [address] [place] [address] * Tacrolimus level (02/03/2025 4:48 AM EDT) Only the most recent of7 resultswithin the time period is included. ComponentValueRef RangeTest MethodAnalysis TimePerformed AtPathologist Signature Tacrolimus Lvl6.35.0 - 20.0 ng/mL02/03/2025 6:05 PM EDTCKETTERING [facility] Comment: Individualized target levels for a [...] situation. Test performed by chemiluminescent immunoassay using TidalScalenity i. Specimen (Source)Anatomical Location / LateralityCollection Method / Volume Collection TimeReceived TimeBlood (Blood, Venous)02/03/2025 4:48 AM EDT 02/03/2025 1:56 PM EDT Narrative Authorizing ProviderResult TypeResult Suzan Cruz [facility] BLOOD ORDERABLESFinal ResultPerforming OrganizationAddressCity/State/ZIP CodePhone Number [facility] [address] [place] [address] [facility] [address] [place] [address] * CMV DNA, QUANTITATIVE, PCR (02/03/2025 4:48 AM EDT) Only the most recent of3 resultswithin the time period is included. ComponentValueRef RangeTest MethodAnalysis TimePerformed AtPathologist Signature Cytomegalovirus LOG (copies/mL)Not detectedNot Sviedael06/20/2025 9:24 PM EDT [facility] LABSpecimen (Source)Anatomical Location / Laterality Collection Method / VolumeCollection TimeReceived TimeBlood (Blood, Venous) 02/03/2025 4:48 AM EDT1 1:56 PM EDT Narrative Authorizing ProviderResult TypeResult Suzan NurOhio [facility] BLOOD ORDERABLESFinal ResultPerforming OrganizationAddressCity/State/ZIP CodePhone Number [facility] [address] [place] [address] [facility] [address] [place] [address] * (ABNORMAL) C-REACTIVE PROTEIN (02/03/2025 4:48 AM EDT) Only the most recent of9 resultswithin the time period is included. ComponentValueRef RangeTest MethodAnalysis TimePerformed AtPathologist Signature CRP11.0(H)<0.9 mg/dL02/03/2025 9:10 AM EDTFAIRVIEW LABORATORYSpecimen (Source) Anatomical Location / LateralityCollection Method / VolumeCollection Time Received TimeBlood (Blood, Venous)02/03/2025 4:48 AM EDT1 8:07 AM EDT Narrative Authorizing ProviderResult TypeResult Suzan Cruz [facility] BLOOD ORDERABLESFinal ResultPerforming OrganizationAddressCity/State/ZIP CodePhone Number [facility] [address] [place] [address] [facility] [address] [place] [address] * (ABNORMAL) PHOSPHORUS (02/03/2025 4:48 AM EDT) Only the most recent of6 resultswithin the time period is included. ComponentValueRef RangeTest MethodAnalysis TimePerformed AtPathologist Signature Phosphorus5.1(H)2.7 - 4.8 mg/dL02/03/2025 9:32 AM EDTFAIRVIEW LABORATORYSpecimen (Source)Anatomical Location / LateralityCollection Method / VolumeCollection TimeReceived TimeBlood (Blood, Venous)02/03/2025 4:48 AM EDT1 8:07 AM EDT Narrative Authorizing ProviderResult TypeResult StatusSaman S [facility] BLOOD ORDERABLESFinal ResultPerforming OrganizationAddressCity/State/ZIP CodePhone Number [facility] [address] [place] [address] [address] * MAGNESIUM (02/03/2025 4:48 AM EDT) Only the most recent of7 resultswithin the time period is included. ComponentValueRef RangeTest MethodAnalysis TimePerformed AtPathologist Signature Magnesium1.91.7 - 2.3 mg/dL02/03/2025 9:10 AM EDTFAIRVIEW LABORATORYSpecimen (Source)Anatomical Location / LateralityCollection Method / VolumeCollection TimeReceived TimeBlood (Blood, Venous)02/03/2025 4:48 AM EDT1 8:07 AM EDT Narrative Authorizing ProviderResult TypeResult StatusProvidence St. [facility] BLOOD ORDERABLESFinal ResultPerforming OrganizationAddressCity/State/ZIP CodePhone Number [facility] [address] [place] [address] [facility] [address] [place], [place] [id number] * (ABNORMAL) GAMMA GT (02/03/2025 4:48 AM EDT) Only the most recent of7 resultswithin the time period is included. ComponentValueRef RangeTest MethodAnalysis TimePerformed AtPathologist Signature GGT91(H)10 - 70 U/L1 4:21 PM EDTCKETTERING HEALTH SPRING[facility] MA[facility] LABSpecimen (Source)Anatomical Location / LateralityCollection Method / VolumeCollection TimeReceived TimeBlood (Blood, Venous)02/03/2025 4:48 AM EDT1 12:08 PM EDT Narrative Authorizing ProviderResult TypeResult StatusSadenise ALMARAZ BLOOD ORDERABLESFinal ResultPerforming OrganizationAddressCity/State/ZIP CodePhone Number [facility] [address] [place] [address] [facility] [address] [place] [address] * (ABNORMAL) COMPREHENSIVE METABOLIC PANEL (02/03/2025 4:48 AM EDT) Only the most recent of7 resultswithin the time period is included. ComponentValueRef RangeTest MethodAnalysis TimePerformed AtPathologist Signature Total Protein6.1(L)6.3 - 8.0 g/dL02/03/2025 9:10 AM [facility]TFFALL [facility] Albumin2.8(L)3.9 - 4.9 g/dL02/03/2025 9:10 AM EDTARAVISTA [facility] LABORATORYCalcium8.9 8.5 - 10.2 mg/dL02/03/2025 9:10 AM [facility] LABORATORYBilirubin, Total0.20.2 - 1.3 mg/dL02/03/2025 9:10 AM [facility] LABORATORYAlkaline (H)38 - 113 U/L1 9:10 AM [facility] UIFRPWTCMDRLP2976 - 40 U/L1 9:10 AM [facility] LABORATORYALT (SGPT)2010 - 54 U/L1 9:10 AM EDT [facility] YHXRUWKAHFKuxaufd5879 - 99 mg/dL02/03/2025 9:10 AM [facility] LABORATORYComment: The [place] Diabetes Association (ADA) provides guidance for cutoff [...] Standards of Medical Care in Diabetes 2016, [place] [employer]. Diabetes Care. 2016.39(Suppl 1). BUN53(H)9 - 24 mg/dL02/03/2025 9:10 AM EDTFAIRVIEW LABORATORYCreatinine, Ser1.14 0.73 - 1.22 mg/dL02/03/2025 9:10 AM EDTFAIRVIEW GHNRDJABXNOwurrl765(L)136 - 144 mmol/L1 9:10 AM EDTFAIRVIEW LABORATORYPotassium5.5(H)3.7 - 5.1 mmol/L 02/03/2025 9:10 AM EDTFAIRVIEW UWQROESRNTEaenkopi37(L)98 - 107 mmol/L1 9:10 AM EDTFAIRVIEW ILSRZCTYNZJZ02477 - 30 mmol/L1 9:10 AM EDTFAIRVIEW LABORATORYAnion Gah775 - 15 mmol/L1 9:10 AM EDTFAIRVIEW LABORATORY Estimated glomerular filtration rate69>=60 mL/min/1.73m 02/03/2025 9:10 AM EDTFAIRVIEW LABORATORYComment: Estimated Glomerular Filtration Rate (eGFR) is calculated using the 2020 CKD-EPI creatinine equation. This equation utilizes serum creatinine, sex, and age as parameters. The creatinine assay has traceable calibration to isotope dilution-mass spectrometry. Refer to KDIGO guidelines for clinical interpretation. In patients with unstable renal function, e.g. those with acute kidney injury, the eGFR may not accurately reflect actual GFR. Specimen (Source)Anatomical Location / LateralityCollection Method / Volume Collection TimeReceived TimeBlood (Blood, Venous)02/03/2025 4:48 AM EDT 02/03/2025 8:07 AM EDT Narrative Authorizing ProviderResult TypeResult StatusSadenise Cruz [facility] BLOOD ORDERABLESFinal ResultPerforming OrganizationAddressCity/State/ZIP CodePhone Number [facility] [address] [place] [address] [facility] [address] [place] [address] * XR CHEST 1 VWS (01/31/2025 12:03 PM EDT) Only the most recent of3 resultswithin the time period is included. Anatomical RegionLateralityModalityBodyComputed RadiographySpecimen (Source) Anatomical Location / LateralityCollection Method / VolumeCollection Time Received Time01/31/2025 12:03 PM EDT Impressions 01/31/2025 12:44 PM EDT IMPRESSION: Similar appearance of pleural effusions and bibasilar parenchymal opacities. Monorail Hooker: SRINI ?? Transcribe Date/Time: Jan 31 2025 12:38P Dictated by : DANIEL LACY MD This examination was interpreted and the report reviewed and electronically signed by: DANIEL LACY MD on Jan 31 2025 12:41PM ??EST Narrative 01/31/2025 12:44 PM EDT * * *Final Report* * * DATE OF EXAM: Jan 31 2025 12:03PM ?? S0X ?? [id number] ??- ??XR CHEST 1V FRONTAL ?? / PROCEDURE REASON: leukocytosis ? * * * * Physician Interpretation * * * * EXAMINATION: ??CHEST RADIOGRAPH (PORTABLE SINGLE VIEW AP) Exam Date/Time: ??01/31/2025 12:03 PM Indication: ?? leukocytosis ??leukocytosis M: ??XCP_4 Comparison: ??01/24/2025 RESULT: Lines, tubes, and devices: ??Smallbore feeding tube again terminates beyond the GE junction and off the caudal imaging plane. Lungs and pleura: ??Persistent trace blunting both costophrenic sulci with hazy lung base opacities a greater patchy parenchymal opacities both lung bases. ??Persistent curvilinear opacities right midlung zone, possible fissural fluid and/or subsegmental atelectasis. ??No pneumothorax. Cardiomediastinal silhouette: ??Stable borderline enlarged cardiomediastinal silhouette. Other: ??Incompletely-imaged thoracolumbar spinal stabilization rods. Procedure Note System, Provider Not In - 01/31/2025 * * *Final Report* * * DATE OF EXAM: Jan 31 2025 12:03PM [id number] - XR CHEST 1V FRONTAL / PROCEDURE REASON: leukocytosis * * * * Physician Interpretation * * * * EXAMINATION: CHEST RADIOGRAPH (PORTABLE SINGLE VIEW AP) Exam Date/Time: 01/31/2025 12:03 PM Indication: leukocytosis leukocytosis M: XCP_4 Comparison: 01/24/2025 RESULT: Lines, tubes, and devices: Smallbore feeding tube again terminates beyond the GE junction and off the caudal imaging plane. Lungs and pleura: Persistent trace blunting both costophrenic sulci with hazy lung base opacities a greater patchy parenchymal opacities both lung bases. Persistent curvilinear opacities right midlung zone, possible fissural fluid and/or subsegmental atelectasis. No pneumothorax. Cardiomediastinal silhouette: Stable borderline enlarged cardiomediastinal silhouette. Other: Incompletely-imaged thoracolumbar spinal stabilization rods. IMPRESSION: IMPRESSION: Similar appearance of pleural effusions and bibasilar parenchymal opacities. Monorail Hooker: SRINI Transcribe Date/Time: Jan 31 2025 12:38P Dictated by : DANIEL LACY MD This examination was interpreted and the report reviewed and electronically signed by: DANIEL LACY MD on Jan 31 2025 12:41PM EST Authorizing ProviderResult TypeResult Suzan Cruz [facility] DIAGNOSTIC IMAGING ORDERABLESFinal Result * (ABNORMAL) LIPASE (01/26/2025 5:30 AM EDT)ComponentValueRef RangeTest Method Analysis TimePerformed AtPathologist SwchcnqskWxbzcm56(L)16 - 61 U/L1 9:45 AM EDTFAIRVIEW LABORATORYSpecimen (Source)Anatomical Location / LateralityCollection Method / VolumeCollection TimeReceived TimeBlood (Blood, Venous)01/26/2025 5:30 AM EDT1 9:07 AM EDT Narrative Authorizing ProviderResult TypeResult Chris Dias DOLAB BLOOD ORDERABLESFinal ResultPerforming OrganizationAddressCity/State/ZIP CodePhone Number [facility] [address] [place] [address] [address] * (ABNORMAL) AMYLASE (01/26/2025 5:30 AM EDT)ComponentValueRef RangeTest Method Analysis TimePerformed AtPathologist VubruzqglUjglvqw64(L)30 - 104 U/L 01/26/2025 9:45 AM EDTFAIRVIEW LABORATORYSpecimen (Source)Anatomical Location / LateralityCollection Method / VolumeCollection TimeReceived TimeBlood (Blood, Venous)01/26/2025 5:30 AM EDT1 9:07 AM EDT Narrative Authorizing ProviderResult TypeResult StatusBetty Dias DOL BLOOD ORDERABLESFinal ResultPerforming OrganizationAddressCity/State/ZIP CodePhone Number [facility] [address] [place] [address] [facility] [address] [place] [address] * (ABNORMAL) CBC (01/25/2025 5:50 AM EDT) Only the most recent of2 resultswithin the time period is included. ComponentValueRef RangeTest MethodAnalysis TimePerformed AtPathologist Signature WBC17.25(H)3.70 - 11.00 k/uL01/25/2025 7:08 AM EDTFOASIS BEHAVIORAL HEALTH HOSPITALVIEW LABORATORYRBC2.26(L) 4.20 - 6.00 m/uL01/25/2025 7:08 AM EDAIRVIEW LABORATORYHemoglobin7.2(L)13.0 - 17.0 g/dL01/25/2025 7:08 AM EDTFOASIS BEHAVIORAL HEALTH HOSPITALVIEW QRIERWMKDHMqruzitwbn86.8(L)39.0 - 51.0 % 01/25/2025 7:08 AM EDTARAV[facility] TACNVPJBORVOM387.9(H)80.0 - 100.0 fL01/25/2025 7:08 AM EDTARAVISTA [facility] LPDMHQIKPCSQS19.926.0 - 34.0 pg01/25/2025 7:08 AM EDT [place] REHQKPNTNJJZKW97.630.5 - 36.0 g/dL01/25/2025 7:08 AM EDTFAIRVIEW LABORATORYRDW-CV19.9(H)11.5 - 15.0 %01/25/2025 7:08 AM EDTFAIRVIEW LABORATORY Rnvycdavp203976 - 400 k/uL01/25/2025 7:08 AM EDTFAIRVIEW JITBXREKSQUAS75.39.0 - 12.7 fL01/25/2025 7:08 AM EDTFAIRVIEW LABORATORYAbsolute NRBC<0.01<0.01 k/uL 01/25/2025 7:08 AM EDTFAIRVIEW LABORATORYSpecimen (Source)Anatomical Location / LateralityCollection Method / VolumeCollection TimeReceived TimeBlood (Blood, Venous)01/25/2025 5:50 AM EDT1 6:54 AM EDT Narrative Authorizing ProviderResult TypeResult StatusSadenise Cruz DOLAB BLOOD ORDERABLESFinal ResultPerforming OrganizationAddressCity/State/ZIP CodePhone Number [facility] [address] [place] [address] [facility] [address] [place] [address] * (ABNORMAL) Urinalysis with Microscopic with Reflex to Culture, Routine (01/24/2025 3:10 PM EDT)ComponentValueRef RangeTest MethodAnalysis Time Performed AtPathologist SignatureColorLight AyecaxOyefct39/10/2025 4:52 PM EDT [place] GJRYSAFSMUFsovzdtBzsvyFjnsg94/10/2025 4:52 PM EDTFAIRVIEW LABORATORY Glucose, UrNegativeTrace, Etswkkip63/10/2025 4:52 PM EDTFAIRVIEW LABORATORY Bilirubin KzaemZrhgwrfqLqinfibz39/10/2025 4:52 PM EDTFAIRVIEW LABORATORY Ketones, urineNegativeNegative, Trace01/24/2025 4:52 PM EDTFAIRVIEW LABORATORY Specific [place], Urine1.0161.005 - 1.7008401/24/2025 4:52 PM EDTFAIRVIEW LABORATORYBlood, UrineNegativeNegative, Trace01/24/2025 4:52 PM EDTFAIRVIEW LABORATORYpH, Urine6.55.0 - 8.010 4:52 PM EDTFAIRVIEW LABORATORY Protein, UrNegativeTrace, Ngwkgzlf34/10/2025 4:52 PM EDTFAIRVIEW LABORATORY Urobilinogen, MRLyniyhRkykyq63/10/2025 4:52 PM EDTFAIRVIEW LABORATORYNitrite, YODfreawfaWeusoefw10/10/2025 4:52 PM EDTFAIRVIEW LABORATORYLeukestNegative Negative, 25 Eder/uL01/24/2025 4:52 PM EDTFAIRVIEW LABORATORYWBC, UA0-5 /HPF0-5 /HPF01/24/2025 4:52 PM EDTFAIRVIEW LABORATORYRBC, UA3-5 /HPF(A)0-3 /HPF 01/24/2025 4:52 PM EDTFAIRVIEW LABORATORYEpithelial Cells, Wet PrepFew/HPF 01/24/2025 4:52 PM EDTFAIRVIEW LABORATORYSpecimen (Source)Anatomical Location / LateralityCollection Method / VolumeCollection TimeReceived TimeUrine 01/24/2025 3:10 PM EDT1 4:41 PM EDT Narrative Authorizing ProviderResult TypeResult StatusNisha K Larissa DOLAB URINE ORDERABLESFinal ResultPerforming OrganizationAddressCity/State/ZIP CodePhone Number [facility] [address] [place] [address] [facility] [address] [place] [address] * CT LUMBAR SPINE WO CONTRAST (01/24/2025 2:16 PM EDT)Anatomical Region LateralityModalitySpine, L-spineComputed TomographySpecimen (Source)Anatomical Location / LateralityCollection Method / VolumeCollection TimeReceived Time 01/24/2025 2:16 PM EDT Impressions 01/24/2025 3:23 PM EDT IMPRESSION: Interval postoperative changes of posterior surgical decompression at level of T11 and T12 superior compression fractures with stable bony retropulsion and height loss and instrumented posterior fusion T8-L3. ?? There is likely residual moderate thecal sac narrowing at T12 despite posterior surgical decompression, as well as persistent moderate bilateral T11-12 and severe bilateral T12-L1 foraminal narrowing. Acute/subacute severe compression fracture of T8 with bony retropulsion resulting in moderate T7-8 canal and severe bilateral foraminal stenosis, progressed from 01/04/2025 and new from 11/28/2024. Additional stable subacute/ chronic compression deformities of T5 and T7 without significant bony retropulsion. Evolving acute/subacute LEFT sacral insufficiency fracture. ??Suggestion of subtle chronic healed sequela of prior insufficiency fracture in the RIGHT hemisacrum. Subacute displaced fractures of the LEFT acetabulum and LEFT superior and inferior pubic ramus with associated bony callus formation. ??Stable prominent sclerosis of LEFT femoral head. Additional thoracic and lumbar degenerative spondylosis as discussed. ?? Severe RIGHT T3-4 foraminal stenosis. Anatomic Thoracic/Lumbar Variant: None. ??L4-5 is considered the level of the iliac crest and assume there are 5 lumbar-type vertebrae. * * * * * * * * ADDENDUM #1 * * * * * * * * ADDENDUM Redemonstration of multiple subacute/chronic posterior rib fractures similar to 01/04/2025. Irregularity of bilateral L1 transverse processes which may reflect developmentally nonfused transverse processes versus sequela of prior fractures, unchanged Monorail Hooker: PSCB ?? Transcribe Date/Time: Jan 24 2025 ??4:06P Dictated by : KHLOE DELGADO MD This examination was interpreted and the report reviewed and electronically signed by: KHLOE DELGADO MD on Jan 24 2025 ??3:21PM ??EST This document has been addended by: KHLOE DELGADO MD on Jan 24 2025 ?? 4:10PM ??EST Narrative 01/24/2025 3:23 PM EDT * * *Final Report* * * * ??* ??* SEE BOTTOM OF REPORT FOR ADDENDED TEXT * ??* ??* DATE OF EXAM: Jan 24 2025 ??2:16PM ?? [facility] ?? 0508 ??- ??CT LUMBAR SPINE WO IVCON ??/ PROCEDURE REASON: severe back pain, T12 burst fx s/p orif ? * * * * Physician Interpretation * * * * * * * * * * * * ORIGINAL REPORT * * * * * * * * EXAMINATION: ??CT THORACIC SPINE WO IVCON, CT LUMBAR SPINE WO IVCON CLINICAL HISTORY: ??severe back pain, T12 burst fx s/p orif TECHNIQUE: Spiral, high resolution axial unenhanced ??images were obtained from the cervicothoracic junction to the sacrum with sagittal and coronal planar reconstructions. MQ: ??CTTLWO_3 CT Radiation dose: Integrated Dose-Length Product (DLP) for this visit = ?? 503 mGy*cm. CT Dose Reduction Employed: Automated exposure control(AEC) and iterative recon COMPARISON: MR thoracic and lumbar spine 11/28/2024 . ??CT chest abdomen pelvis 01/04/2025 RESULT: THORACIC: Counting reference: ??Cervicothoracic and lumbosacral junctions. ??Assume first thoracic rib is the T1 level. ??For the purposes of this report, ?? L4-5 is considered the level of the iliac crest and assume there are 5 lumbar-type vertebrae. ??Anatomic variant: ??None. Alignment: ?Thoracic kyphosis centered at T12 Bone marrow / fracture: Diffuse osseous demineralization. ??Interval postoperative changes of partial T11 laminectomy, T12 laminectomy, and partial L1 laminectomy, and instrumented posterior spinal fusion of T8-L3 with bilateral transpedicular screws spanning all levels sparing T11 and T12, connecting to intervening posterior fusion rods. ??Redemonstrated severe compression fractures of T11 and T12 with mild 7 mm T11 and moderate 11 mm T12 bony retropulsion, similar to 11/28/2024 MRI. ??There is likely persistent residual T12 moderate canal narrowing despite posterior surgical decompression, as well as persistent moderate bilateral T11-12 and severe bilateral T12-L1 foraminal narrowing. ?? Acute/subacute severe T8 compression fracture with 5 mm bony retropulsion resulting in moderate canal stenosis and moderate bilateral T7-8 and severe bilateral T8-9 foraminal stenosis, progressed from 01/04/2025. ?? Mild likely subacute superior end plate compression deformity of T5 with associated sclerosis, 10% vertebral body height loss, and no significant bony retropulsion. ??Chronic moderate T7 superior endplate compression deformity with 25-50% vertebral body height loss and no substantial retropulsion. Thoracic soft tissues: ??Expected postoperative changes in the dorsal paraspinal soft tissues overlying the operative bed. ??Enteric tube in place. ??Moderate bilateral pleural effusions and RIGHT greater than LEFT subjacent atelectasis. ??Bibasilar linear scarring and diffuse bronchial/bronchiolar wall thickening. Canal and foramina: ??Multilevel canal and foraminal narrowing related to compression deformities as discussed above. ??No substantial canal narrowing at remaining thoracic levels Additional severe RIGHT T3-4 foraminal stenosis, RIGHT T9-10 foraminal narrowing, and moderate bilateral T10-11 foraminal narrowing related to facet and disc disease. LUMBAR: Counting reference: ??Cervicothoracic and lumbosacral junctions. ??Assume first thoracic rib is the T1 level. ??For the purposes of this report, ?? L4-5 is considered the level of the iliac crest and assume there are 5 lumbar-type vertebrae. ??Anatomic variant: ??None. Alignment: ??Alignment is anatomic. Bone marrow / fracture: Sacral fractures discussed below. ??Subacute displaced fractures of the LEFT acetabulum and LEFT superior and inferior pubic ramus with associated bony callus formation. ??Redemonstrated prominent sclerosis of the LEFT femoral head. ??No new acute fracture in the lumbar spine. Paraspinal soft tissues: ??Expected postoperative changes in the dorsal paraspinal soft tissues overlying the operative bed. L1-L2: ?Canal and foramina are patent. L2-L3: ?Canal and foramina are patent L3-L4: ?Posterior disc bulge eccentric to the RIGHT. ??Mild facet arthropathy and ligamentum flavum hypertrophy. ??Mild canal stenosis. ?? Mild RIGHT foraminal narrowing. ??LEFT neural foramen is patent. L4-L5: ?Diffuse disc bulge and mild facet arthropathy. ??Mild canal stenosis and mild bilateral subarticular narrowing. ??Patent neural foramina. L5-S1: ?No canal stenosis moderate facet arthropathy. ??Mild bilateral foraminal stenosis. Sacrum and iliac wings: Bony pelvic fractures discussed above. ?? Prominent bony irregularity with vertical lucency and adjacent sclerosis likely reflecting evolving acute/subacute LEFT sacral insufficiency fracture, subtle bony irregularity and sclerosis in the RIGHT hemisacrum may reflect chronic healed sequela of prior insufficiency fracture. Procedure Note System, Provider Not In - 01/24/2025 * * *Final Report* * * * * * SEE BOTTOM OF REPORT FOR ADDENDED TEXT * * * DATE OF EXAM: Jan 24 2025 2:16PM [facility] 0508 - CT LUMBAR SPINE WO IVCON [...] healed sequela of prior insufficiency fracture. IMPRESSION: IMPRESSION: Interval postoperative changes of posterior surgical decompression at level of T11 and T12 superior compression fractures with stable bony retropulsion and height loss and instrumented posterior fusion T8-L3. There is likely residual moderate thecal sac narrowing at T12 despite posterior surgical decompression, as well as persistent moderate bilateral T11-12 and severe bilateral T12-L1 foraminal narrowing. Acute/subacute severe compression fracture of T8 with bony retropulsion resulting in moderate T7-8 canal and severe bilateral foraminal stenosis, progressed from 01/04/2025 and new from 11/28/2024. Additional stable subacute/ chronic compression deformities of T5 and T7 without significant bony retropulsion. Evolving acute/subacute LEFT sacral insufficiency fracture. Suggestion of subtle chronic healed sequela of prior insufficiency fracture in the RIGHT hemisacrum. Subacute displaced fractures of the LEFT acetabulum and LEFT superior and inferior pubic ramus with associated bony callus formation. Stable prominent sclerosis of LEFT femoral head. Additional thoracic and lumbar degenerative spondylosis as discussed. Severe RIGHT T3-4 foraminal stenosis. Anatomic Thoracic/Lumbar Variant: None. L4-5 is considered the level of the iliac crest and assume there are 5 lumbar-type vertebrae. * * * * * * * * ADDENDUM #1 * * * * * * * * ADDENDUM Redemonstration of multiple subacute/chronic posterior rib fractures similar to 01/04/2025. Irregularity of bilateral L1 transverse processes which may reflect developmentally nonfused transverse processes versus sequela of prior fractures, unchanged Monorail Hooker: PSCB Transcribe Date/Time: Jan 24 2025 4:06P Dictated by : KHLOE DELGADO MD This examination was interpreted and the report reviewed and electronically signed by: KHLOE DELGADO MD on Jan 24 2025 3:21PM EST This document has been addended by: KHLOE DELGADO MD on Jan 24 2025 4:10PM EST Authorizing ProviderResult TypeResult StatusSadenise Cruz [facility] CT ORDERABLES Edited * CT THORACIC SPINE WO CONTRAST (01/24/2025 2:16 PM EDT)Anatomical Region LateralityModalitySpine, T-spineComputed TomographySpecimen (Source)Anatomical Location / LateralityCollection Method / VolumeCollection TimeReceived Time 01/24/2025 2:16 PM EDT Impressions 01/24/2025 3:23 PM EDT IMPRESSION: Interval postoperative changes of posterior surgical decompression at level of T11 and T12 superior compression fractures with stable bony retropulsion and height loss and instrumented posterior fusion T8-L3. ?? There is likely residual moderate thecal sac narrowing at T12 despite posterior surgical decompression, as well as persistent moderate bilateral T11-12 and severe bilateral T12-L1 foraminal narrowing. Acute/subacute severe compression fracture of T8 with bony retropulsion resulting in moderate T7-8 canal and severe bilateral foraminal stenosis, progressed from 01/04/2025 and new from 11/28/2024. Additional stable subacute/ chronic compression deformities of T5 and T7 without significant bony retropulsion. Evolving acute/subacute LEFT sacral insufficiency fracture. ??Suggestion of subtle chronic healed sequela of prior insufficiency fracture in the RIGHT hemisacrum. Subacute displaced fractures of the LEFT acetabulum and LEFT superior and inferior pubic ramus with associated bony callus formation. ??Stable prominent sclerosis of LEFT femoral head. Additional thoracic and lumbar degenerative spondylosis as discussed. ?? Severe RIGHT T3-4 foraminal stenosis. Anatomic Thoracic/Lumbar Variant: None. ??L4-5 is considered the level of the iliac crest and assume there are 5 lumbar-type vertebrae. * * * * * * * * ADDENDUM #1 * * * * * * * * ADDENDUM Redemonstration of multiple subacute/chronic posterior rib fractures similar to 01/04/2025. Irregularity of bilateral L1 transverse processes which may reflect developmentally nonfused transverse processes versus sequela of prior fractures, unchanged Monorail Hooker: SRINI ?? Transcribe Date/Time: Jan 24 2025 ??4:06P Dictated by : KHLOE DELGADO MD This examination was interpreted and the report reviewed and electronically signed by: KHLOE DELGADO MD on Jan 24 2025 ??3:21PM ??EST This document has been addended by: KHLOE DELGADO MD on Jan 24 2025 ?? 4:10PM ??EST Narrative 01/24/2025 3:23 PM EDT * * *Final Report* * * * ??* ??* SEE BOTTOM OF REPORT FOR ADDENDED TEXT * ??* ??* DATE OF EXAM: Jan 24 2025 ??2:16PM ?? [facility] ?? 0514 ??- ??CT THORACIC SPINE WO IVCON ??/ PROCEDURE REASON: severe back pain, T12 burst fx s/p orif ? * * * * Physician Interpretation * * * * * * * * * * * * ORIGINAL REPORT * * * * * * * * EXAMINATION: ??CT THORACIC SPINE WO IVCON, CT LUMBAR SPINE WO IVCON CLINICAL HISTORY: ??severe back pain, T12 burst fx s/p orif TECHNIQUE: Spiral, high resolution axial unenhanced ??images were obtained from the cervicothoracic junction to the sacrum with sagittal and coronal planar reconstructions. MQ: ??CTTLWO_3 CT Radiation dose: Integrated Dose-Length Product (DLP) for this visit = ?? 503 mGy*cm. CT Dose Reduction Employed: Automated exposure control(AEC) and iterative recon COMPARISON: MR thoracic and lumbar spine 11/28/2024 . ??CT chest abdomen pelvis 01/04/2025 RESULT: THORACIC: Counting reference: ??Cervicothoracic and lumbosacral junctions. ??Assume first thoracic rib is the T1 level. ??For the purposes of this report, ?? L4-5 is considered the level of the iliac crest and assume there are 5 lumbar-type vertebrae. ??Anatomic variant: ??None. Alignment: ?Thoracic kyphosis centered at T12 Bone marrow / fracture: Diffuse osseous demineralization. ??Interval postoperative changes of partial T11 laminectomy, T12 laminectomy, and partial L1 laminectomy, and instrumented posterior spinal fusion of T8-L3 with bilateral transpedicular screws spanning all levels sparing T11 and T12, connecting to intervening posterior fusion rods. ??Redemonstrated severe compression fractures of T11 and T12 with mild 7 mm T11 and moderate 11 mm T12 bony retropulsion, similar to 11/28/2024 MRI. ??There is likely persistent residual T12 moderate canal narrowing despite posterior surgical decompression, as well as persistent moderate bilateral T11-12 and severe bilateral T12-L1 foraminal narrowing. ?? Acute/subacute severe T8 compression fracture with 5 mm bony retropulsion resulting in moderate canal stenosis and moderate bilateral T7-8 and severe bilateral T8-9 foraminal stenosis, progressed from 01/04/2025. ?? Mild likely subacute superior end plate compression deformity of T5 with associated sclerosis, 10% vertebral body height loss, and no significant bony retropulsion. ??Chronic moderate T7 superior endplate compression deformity with 25-50% vertebral body height loss and no substantial retropulsion. Thoracic soft tissues: ??Expected postoperative changes in the dorsal paraspinal soft tissues overlying the operative bed. ??Enteric tube in place. ??Moderate bilateral pleural effusions and RIGHT greater than LEFT subjacent atelectasis. ??Bibasilar linear scarring and diffuse bronchial/bronchiolar wall thickening. Canal and foramina: ??Multilevel canal and foraminal narrowing related to compression deformities as discussed above. ??No substantial canal narrowing at remaining thoracic levels Additional severe RIGHT T3-4 foraminal stenosis, RIGHT T9-10 foraminal narrowing, and moderate bilateral T10-11 foraminal narrowing related to facet and disc disease. LUMBAR: Counting reference: ??Cervicothoracic and lumbosacral junctions. ??Assume first thoracic rib is the T1 level. ??For the purposes of this report, ?? L4-5 is considered the level of the iliac crest and assume there are 5 lumbar-type vertebrae. ??Anatomic variant: ??None. Alignment: ??Alignment is anatomic. Bone marrow / fracture: Sacral fractures discussed below. ??Subacute displaced fractures of the LEFT acetabulum and LEFT superior and inferior pubic ramus with associated bony callus formation. ??Redemonstrated prominent sclerosis of the LEFT femoral head. ??No new acute fracture in the lumbar spine. Paraspinal soft tissues: ??Expected postoperative changes in the dorsal paraspinal soft tissues overlying the operative bed. L1-L2: ?Canal and foramina are patent. L2-L3: ?Canal and foramina are patent L3-L4: ?Posterior disc bulge eccentric to the RIGHT. ??Mild facet arthropathy and ligamentum flavum hypertrophy. ??Mild canal stenosis. ?? Mild RIGHT foraminal narrowing. ??LEFT neural foramen is patent. L4-L5: ?Diffuse disc bulge and mild facet arthropathy. ??Mild canal stenosis and mild bilateral subarticular narrowing. ??Patent neural foramina. L5-S1: ?No canal stenosis moderate facet arthropathy. ??Mild bilateral foraminal stenosis. Sacrum and iliac wings: Bony pelvic fractures discussed above. ?? Prominent bony irregularity with vertical lucency and adjacent sclerosis likely reflecting evolving acute/subacute LEFT sacral insufficiency fracture, subtle bony irregularity and sclerosis in the RIGHT hemisacrum may reflect chronic healed sequela of prior insufficiency fracture. Procedure Note System, Provider Not In - 01/24/2025 * * *Final Report* * * * * * SEE BOTTOM OF REPORT FOR ADDENDED TEXT * * * DATE OF EXAM: Jan 24 2025 2:16PM [facility] 0514 - CT THORACIC SPINE WO IVCON [...] healed sequela of prior insufficiency fracture. IMPRESSION: IMPRESSION: Interval postoperative changes of posterior surgical decompression at level of T11 and T12 superior compression fractures with stable bony retropulsion and height loss and instrumented posterior fusion T8-L3. There is likely residual moderate thecal sac narrowing at T12 despite posterior surgical decompression, as well as persistent moderate bilateral T11-12 and severe bilateral T12-L1 foraminal narrowing. Acute/subacute severe compression fracture of T8 with bony retropulsion resulting in moderate T7-8 canal and severe bilateral foraminal stenosis, progressed from 01/04/2025 and new from 11/28/2024. Additional stable subacute/ chronic compression deformities of T5 and T7 without significant bony retropulsion. Evolving acute/subacute LEFT sacral insufficiency fracture. Suggestion of subtle chronic healed sequela of prior insufficiency fracture in the RIGHT hemisacrum. Subacute displaced fractures of the LEFT acetabulum and LEFT superior and inferior pubic ramus with associated bony callus formation. Stable prominent sclerosis of LEFT femoral head. Additional thoracic and lumbar degenerative spondylosis as discussed. Severe RIGHT T3-4 foraminal stenosis. Anatomic Thoracic/Lumbar Variant: None. L4-5 is considered the level of the iliac crest and assume there are 5 lumbar-type vertebrae. * * * * * * * * ADDENDUM #1 * * * * * * * * ADDENDUM Redemonstration of multiple subacute/chronic posterior rib fractures similar to 01/04/2025. Irregularity of bilateral L1 transverse processes which may reflect developmentally nonfused transverse processes versus sequela of prior fractures, unchanged Monorail Hooker: SRINI Transcribe Date/Time: Jan 24 2025 4:06P Dictated by : KHLOE DELGADO MD This examination was interpreted and the report reviewed and electronically signed by: KHLOE DELGADO MD on Jan 24 2025 3:21PM EST This document has been addended by: KHLOE DELGADO MD on Jan 24 2025 4:10PM EST Authorizing ProviderResult TypeResult Suzan Cruz [facility] ORDERABLES Edited * Type and screen (01/24/2025 5:28 AM EDT)ComponentValueRef RangeTest Method Analysis TimePerformed AtPathologist SignatureABO ZysdhelkY17/10/2025 10:53 [facility] QAXGYfOmyelvff55/10/2025 10:53 [facility] Antibody CkisxxDmmberxn56/10/2025 10:53 [facility] BLOOD BANKType And Screen Jjaaubrbor56/13/2025 23:5901/24/2025 10:53 AM [facility] B[facility] BANK Specimen (Source)Anatomical Location / LateralityCollection Method / Volume Collection TimeReceived TimeBlood (Blood, Venous)01/24/2025 5:28 AM EDT 01/24/2025 10:00 AM EDT Narrative Authorizing ProviderResult TypeResult StatusJonathan Cruz [facility] BLOOD BANK TEST ORDERABLESFinal ResultPerforming OrganizationAddressCity/State/ZIP Code Phone Number [facility] [address] [place] [address] [facility] BLOOD BANK [address] [address] * (ABNORMAL) Sedimentation rate, automated (01/19/2025 11:11 AM EDT)Component ValueRef RangeTest MethodAnalysis TimePerformed AtPathologist HpyumojsqSNI42 (H)0 - 15 mm/hr01/19/2025 6:46 PM EDTCAULTMAN [facility] LABSpecimen (Source)Anatomical Location / LateralityCollection Method / VolumeCollection TimeReceived TimeBlood (Blood, Venous)01/19/2025 11:11 AM EDT1 5:49 PM EDT Narrative Authorizing ProviderResult TypeResult StatusHar[facility] ORDERABLES Final ResultPerforming OrganizationAddressCity/State/ZIP CodePhone Number [facility] [address] [place] [phone] [facility] [address] [address] * POCT glucose (01/18/2025 8:29 PM EDT) Only the most recent of2 resultswithin the time period is included. ComponentValueRef RangeTest MethodAnalysis TimePerformed AtPathologist Signature Glucose Blood, [id number] - 120 mg/dLSM ROCHESpecimen (Source)Anatomical Location / LateralityCollection Method / VolumeCollection TimeReceived TimeBlood 01/18/2025 8:29 PM EDT1 8:29 PM EDT Narrative Authorizing ProviderResult TypeResult StatusProvider Not In SystemLAB POINT OF CARE TEST ORDERABLESFinal ResultPerforming OrganizationAddressCity/State/ZIP CodePhone Number [facility] * X-ray abdomen KUB with OBL or cone (01/17/2025 2:03 PM EDT) Only the most recent of4 resultswithin the time period is included. Anatomical RegionLateralityModalityComputed RadiographySpecimen (Source) Anatomical Location / LateralityCollection Method / VolumeCollection Time Received Time01/17/2025 2:03 PM EDT Impressions 01/17/2025 2:52 PM EDT IMPRESSION: Feeding tube tip within the distal stomach/proximal duodenum. Monorail Hooker: SRINI ?? Transcribe Date/Time: Jan ??2024 ??2:49P Dictated by : AMARILIS MACK MD This examination was interpreted and the report reviewed and electronically signed by: AMARILIS MACK MD on Jan?2024 ??2:50PM ??EST Narrative 01/17/2025 2:52 PM EDT * * *Final Report* * * DATE OF EXAM: Jan ??2024 ??2:03PM ?? S0X ?? [id number] ??- ??XR ABDOMEN 3V KUB W/OBLIQUES ??/ PROCEDURE REASON: Corpak Placement ? * * * * Physician Interpretation * * * * Clinical Information: Feeding tube placement Portable supine view of the abdomen was obtained. Comparison: 01/16/2025 Feeding tube repositioned with tip in the distal stomach/proximal duodenum. Common bile duct stent. There is a nonspecific, nonobstructive bowel gas pattern. No abnormal abdominal masses are identified. ??No No acute bony abnormalities are seen. Procedure Note System, Provider Not In - 01/17/2025 * * *Final Report* * * DATE OF EXAM: Jan 17 2025 2:03PM S0X [id number] - XR ABDOMEN 3V KUB W/OBLIQUES / PROCEDURE REASON: Corpak Placement * * * * Physician Interpretation * * * * Clinical Information: Feeding tube placement Portable supine view of the abdomen was obtained. Comparison: 01/16/2025 Feeding tube repositioned with tip in the distal stomach/proximal duodenum. Common bile duct stent. There is a nonspecific, nonobstructive bowel gas pattern. No abnormal abdominal masses are identified. No No acute bony abnormalities are seen. IMPRESSION: IMPRESSION: Feeding tube tip within the distal stomach/proximal duodenum. Monorail Hooker: SRINI Transcribe Date/Time: Jan 17 2025 2:49P Dictated by : AMARILIS MACK MD This examination was interpreted and the report reviewed and electronically signed by: AMARILIS MACK MD on Jan 17 2025 2:50PM EST Authorizing ProviderResult TypeResult StatusSadenise Cruz [facility] ORDERABLESFinal Result from Last 3 Months Advance Directives * Full Resuscitation (Latest Code Status on File) Date ActivatedDate InactivatedComments01/14/2025 7:15 PM10 5:01 PM QuestionAnswerCommentsI have discussed this order with the patient or his/her surrogate and have received informed consent.* Yes * Full Resuscitation Date ActivatedDate InactivatedComments10/30/2024 8:06 PM11/15/2024 3:57 PMQuestion AnswerCommentsI have discussed this order with the patient or his/her surrogate and have received informed consent.* Yes * Full Resuscitation Date ActivatedDate InactivatedComments09/29/2024 6:27 PM10/10/2024 12:31 AM QuestionAnswerCommentsI have discussed this order with the patient or his/her surrogate and have received informed consent.* Yes Care Teams Team MemberRelationshipSpecialtyStart DateEnd Date Rusty Delgado [address] [facility] [address] [place] [address] [facility] - General09/30/24
--- OUTSIDE RECORDS SUMMARY | 2025-03-17 12:25 | XMS_ITS | Encounter Summary ---
Author Organization [facility] Address [address] [place] [address] Care Team Providers Care Public Health Engineer Name Role Phone Rusty Delgado MD Unavailable [phone] Rusty Delgado MD Primary Care Provider [phone] Encounter Details DateTypeDepartmentCare Team (Latest Contact Info)Pgjhtwscvab30/24/2025bstract [facility] [address] [place] [address] Rusty Delgado MD [address] [facility] [address] [place] [address] Social History Tobacco UseTypesPacks/DayYears UsedDateSmoking Tobacco: FormerCigarettesQuit: 1990Smokeless Tobacco: NeverAlcohol UseStandard Drinks/WeekCommentsYes0 (1 standard drink = 0.6 oz pure alcohol)2-3 times per week, 1-2 drinks at a time B1300 Health LiteracyAnswerDate RecordedHow often do you need to have someone help you when you read instructions, pamphlets, or other written material from your doctor or pharmacy?Qxuxmc8112/12/2023Social Connection and Isolation Panel AnswerDate RecordedIn a typical week, how many times do you talk on the phone with family, friends, or neighbors?Never12/12/2023How often do you get together with friends or relatives?Never12/12/2023How often do you attend mandaeism or rastafari services?Never12/12/2023o you belong to any clubs or organizations such as mandaeism groups, unions, fraternal or athletic groups, or school groups?No 12/12/2023How often do you attend meetings of the clubs or organizations you belong to?Never12/12/2023re you , , , , never , or living with a partner?Ytglqfm3112/12/2023UDIT-CAnswerDate RecordedQ1: How often do you have a [...] hard at all12/12/2023HQ-2AnswerDate Recorded Patient Health Questionnaire-2 [facility]yl042[facility] - Occupational Stress QuestionnaireAnswerDate RecordedDo you feel stress - tense, restless, nervous, or anxious, or unable to sleep at night because your mind is troubled all the time - these days?To some dbdcsq6212/12/2023Exercise Vital SignAnswerDate RecordedOn average, how many days [...] or living in a skilled nursing (including now)?No12/12/2023Sex and Gender InformationValueDate RecordedSex Assigned at JraptLpvx20/27/2024 1:36 PM EDTLegal RomJfns9006/29/2022 11:50 PM EDTGender SgdjpvmlEehz82/27/2024 1:36 PM EDTSexual UxtazjbvypqWbpqaud73/27/2024 1:36 PM EDTdocumented as of this encounter Plan of Treatment Not on file documented as of this encounter Visit Diagnoses Not on filedocumented in this encounter Care Teams Team MemberRelationshipSpecialtyStart DateEnd Date Rusty Delgado MD [address] [facility] [address] [place] [address] PCP - [employer]04/17/22 Rusty Delgado MD [address] [facility] [address] [place] [address] PCP - GeneralInternal Medicine11/23/22documented as of this encounter
--- OUTSIDE RECORDS SUMMARY | 2025-03-17 12:25 | XMS_ITS | Clinical Summary ---
Author Organization [facility] Address [address] [place] [address] Care Team Providers Care Resistor Coater Name Role Phone Rusty Delgado MD Unavailable [phone] Rusty Delgado MD Primary Care Provider [phone] Allergies No known active allergies Medications MedicationSigDispense QuantityRefillsLast FilledStart DateEnd DateStatus Multiple Vitamins-Minerals (Multi For Him) tablet Daily.Active spironolactone (Aldactone) 100 MG tablet TAKE 1 TABLET BY MOUTH EVERY DAY FOR 30 DAYS05/10/2023ctive lansoprazole (Prevacid SoluTab) 30 MG disintegrating tablet Take 15 mg by mouth in the morning. Take before meals. Dissolve on tongue before swallowing particles; do not chew, cut, break, or swallow whole..Active Calcium Carb-Cholecalciferol (Calcium 500 + D) 500-3.125 MG-MCG tablet Take 1 tablet by mouth 1 (one) time each day06/02/2023ctive rifAXIMin (Xifaxan) 550 MG tablet Take 550 mg by mouth in the morning and 550 mg in the evening.10/26/2023ctive lactulose (Enulose) 10 GM/15ML solution oral solution Take 10 g by mouth Daily12/28/2023ctive spironolactone (Aldactone) 50 MG tablet Take 50 mg by mouth Daily04/29/2024tive bumetanide (Bumex) 2 MG tablet Take 2 mg by mouth in the morning and 2 mg before bedtime.Active B Complex Vitamins (vitamin B complex) tablet Indications:Iron deficiency anemia, unspecified iron deficiency anemia typeTake 1 tablet by mouth Daily 100 tablet tive acyclovir (Zovirax) 400 MG tablet Take 400 mg by mouth in the morning and 400 mg in the evening.11/12/2024tive aspirin 81 MG chewable tablet Chew 81 mg in the morning.11/12/2024tive benzonatate (Tessalon) 100 MG capsule Take 100 mg by mouth every 8 (eight) hours if ofbdug5410/30/2024tive famotidine (Pepcid) 20 MG tablet Take 20 mg by mouth in the morning and 20 mg in the evening.11/12/2024tive furosemide (Lasix) 40 MG tablet Take 40 mg by mouth in the morning.10/31/2024tive linaCLOtide (Linzess) 145 MCG capsule Take 145 mcg by mouth in the morning.11/12/2024tive magnesium hydroxide (Milk of Magnesia) 400 MG/5ML suspension Take 30 mL by mouth Daily as kdzgoz5611/15/2024tive melatonin 3 MG tablet Take 3 mg by mouth at piswtil9211/12/2024tive methocarbamol (Robaxin) 750 MG tablet Take 750 mg by mouth 3 (three) times a day as llxzgh3511/12/2024tive midodrine (Proamatine) 10 MG tablet Take 10 mg by mouth in the morning and 10 mg at noon and 10 mg in the evening. 11/12/2024tive pantoprazole (ProtoNix) 40 MG EC tablet Take 40 mg by mouth in the morning and 40 mg in the evening. Take before meals. 11/12/2024tive tamsulosin (Flomax) 0.4 MG 24 hr capsule Take 0.4 mg by mouth at hpaajbm5911/12/2024tive traZODone (Desyrel) 50 MG tablet Take 50 mg by mouth at flpqddo2011/12/2024tive ursodiol (Actigall) 300 MG capsule Take 300 mg by mouth in the morning and 300 mg at noon and 300 mg in the evening.11/12/2024tive valGANciclovir (Valcyte) 450 MG tablet Take 900 mg by mouth in the morning and 900 mg in the evening. Take with meals. 10/30/2024tive Active Problems ProblemNoted DateDiagnosed DateBiliary stricture of transplanted liver10/28/2024 Chronic bilateral low back pain without /08/2025VRE (vancomycin- resistant Enterococci) gkfftukiu70/06/2025Intra-abdominal infection after surgical qmljqdezz14/06/2025ytomegalovirus (CMV) aywvdun3210/09/2024nemia due to multiple ywnhakfqto78/24/2025ritical illness xwjlhwik32/15/2025Weakness 09/24/2024Steroid-induced ixxzwfnthaeiq55/04/2025ute renal rbzslci5809/14/2024 History of liver nvumhyvdlk39/26/2025hronic kidney wrczzkh6509/06/2024 Hepatocellular pcntwlxci25/17/2025Portal hypertension with esophageal varices 08/31/2024Polyp of colon08/31/2024KD stage 3a, GFR 45-59 ml/min08/27/2024Severe protein-calorie malnutrition (HHS-HCC)08/27/20244887Blukumaonhfe03/13/2025Hepatic qzdolrohzbehjt44/09/2025History of tobacco abuse03/08/2024Nonalcoholic steatohepatitis (JARAMILLO)03/08/2024leural /04/2024ge-related nuclear cataract of both eyes01/18/2024ortic root hellvjxmhq58/05/2024 Assessment & Plan (12/21/2023 9:15 AM EDT): 3.8 cm ECHO 12/20/2023 QUESADA (dyspnea on exertion)12/13/2023Other gklwizg7612/13/2023Secondary esophageal varices without zkumbtbn29/28/2024lcoholic cirrhosis of liver with ascites 10/13/20236520Seadnjewk43/18/6070Zwqlal01/18/2024bnormal weight loss07/18/2023 Episodic altered lehyrsewr93/02/2024Grade II ypnrtrsrrhh53/07/2024Fissure in ano 05/18/2023Hx of colonic gjiioa9903/21/20235880Worvlfi69/30/2023arrett's esophagus 11/17/2022rystalline deposits in oktlvljo21/03/6864Butkqepqapwr40/03/2023 Epiretinal /03/2023Fatty liver11/17/20225408Lwjbnmlo82/03/2023Metabolic syndrome X11/17/2022Nuclear senile triegztz28/03/8519Idkwzxpdogmzdady45/03/2023 Olecranon aanrklut97/23/1792Luzikum68/23/2019Hyperglycemia due to type 2 diabetes huacbuwp96/24/2019Class 1 sxlduwp9607/26/2018Primary gout07/26/2018 Ventricular premature beats06/28/2017Basal cell carcinoma of skin06/27/2017 Incisional gmwndy5612/06/2012GERD (gastroesophageal reflux disease)11/26/2012 Veoymekjfeoy69/12/2013 Resolved Problems ProblemNoted DateDiagnosed DateResolved DateBenign essential hypertension 4Controlled type 2 diabetes mellitus without complication, without long-term current use of nwpsseu02HTN (hypertension) Encounters DateTypeDepartmentCare BtsxYfzcmvmwkqx47/24/2025bstract [facility] [address] [place] [address] Rusty Delgado MD 03/10/2025Telephone [facility] [address] [place] [address] Rusty Delgado MD 03/06/2025Telephone [facility] [address] [place] [address] Rusty Delgado MD 02/24/2025bstract [facility] [address] [place] [address] Rusty Delgado MD 02/24/2025bstract [facility] [address] [place] [address] Rusty Delgado MD 02/17/2025Telephone [facility] [address] [place] [address] Ann Castellon LPN 02/03/2025bstract [facility] [address] [place] [address] Rusty Delgado MD 5Clinisync Result Encounter [facility] External Department Unsolicited Provider, Generic External Data 5Clinisync Result Encounter [facility] External Department Unsolicited Provider, Generic External Data 5Clinisync Result Encounter [facility] External Department Unsolicited Provider, Generic External Data 5Clinisync Result Encounter [facility] External Department Unsolicited Provider, Generic External Data 5Clinisync Result Encounter [facility] External Department Unsolicited Provider, Generic External Data 5Clinisync Result Encounter [facility] External Department Unsolicited Provider, Generic External Data 5Clinisync Result Encounter [facility] External Department Unsolicited Provider, Generic External Data 5Clinisync Result Encounter [facility] External Department Unsolicited Provider, Generic External Data 5Clinisync Result Encounter [facility] External Department Unsolicited Provider, Generic External Data 5Clinisync Result Encounter [facility] External Department Unsolicited Provider, Generic External Data 5Clinisync Result Encounter [facility] External Department Unsolicited Provider, Generic External Data 5Clinisync Result Encounter [facility] External Department Unsolicited Provider, Generic External Data 5Clinisync Result Encounter [facility] External Department Unsolicited Provider, Generic External Data 5Clinisync Result Encounter [facility] External [facility] Unsolicited Provider, Generic External Data from Last 3 Months Immunizations ImmunizationAdministration DatesNext DueHep A, Adult08/28/2024,05/02/2024 HepB-CpG06/15/2024,05/02/2024Influenza, High Dose Seasonal, Preservative Free 03/04/2024,02/01/2022,02/17/2021Influenza, Seasonal, Quadrivalent, Adjuvanted 01/24/2023Influenza, Ypjuyofpdyk56/09/2013Influenza, injectable, quadrivalent 02/13/2017Influenza, injectable, quadrivalent, preservative free02/10/2019 Influenza, seasonal, faeaimzbcd13/17/2016,02/10/2015,01/14/2014Pneumococcal Conjugate PCV 4Pneumococcal Conjugate PCV 4RSV, recombinant, protein subunit RSVpreF, adjuvant reconstitu, 120mcg/0.5mL, PF (Arexvy)06/10/2024Tdap105/23/2021Zoster, Ierdmuucreb55/14/2023Zoster, live 03/24/2015 Family History Medical HistoryRelationNameCommentsHypertensionFatherWilliam E KoenigBreast cancerNeg HxColon cancerNeg HxOvarian cancerNeg HxRelationNameStatusComments Xpijboo3EfrlyvBvdggps E KoenigDeceasedMotherDeceasedSister1 Social History Tobacco UseTypesPacks/DayYears UsedDateSmoking Tobacco: FormerCigarettesQuit: 1990Smokeless Tobacco: Never Tobacco Cessation:Counseling Given: Not Answered Alcohol UseStandard Drinks/WeekCommentsYes0 (1 standard drink = 0.6 oz pure alcohol)2-3 times per week, 1-2 drinks at a dcmkX0565 Health LiteracyAnswerDate RecordedHow often do you need to have someone help you when you read instructions, pamphlets, or other written material from your doctor or pharmacy? Mxjgtl2712/12/2023Social Connection and Isolation PanelAnswerDate RecordedIn a typical week, how many times do you talk on the phone with family, friends, or neighbors?Never12/12/2023How often do you get together with friends or relatives?Never12/12/2023How often do you attend voodoo or christianity services? Never12/12/2023o you belong to any clubs or organizations such as voodoo groups, unions, fraternal or athletic groups, or school groups?No12/12/2023How often do you attend meetings of the clubs or organizations you belong to?Never 12/12/2023re you , , , , never , or living with a partner?Ygtbikz5012/12/2023UDIT-CAnswerDate RecordedQ1: How often do you have a drink containing alcohol?Never12/12/2023Q2: How many drinks containing alcohol do you have on a typical day when you are drinking?Patient does not drink12/12/2023Q3: How often do you have six or more drinks on one occasion?Never12/12/2023Overall Financial Resource Strain (CARDIA)AnswerDate RecordedHow hard is it for you to pay for the very basics like food, housing, medical care, and heating?Not hard at all12/12/2023HQ-2AnswerDate Recorded Patient Health Questionnaire-2 Yjjiv622FinSouthlake [facility] Occupational Health - Occupational Stress QuestionnaireAnswerDate RecordedDo you feel stress - tense, restless, nervous, or anxious, or unable to sleep at night because your mind is troubled all the time - these days?To some kxscly8012/12/2023Exercise Vital SignAnswerDate RecordedOn average, how many days [...] to pay the mortgage or rent on time?No12/12/2023In the past 12 months, how many times have you moved where you were living?t any time in the past 12 months, were you homeless or living in a group home (including now)?No12/12/2023Sex and Gender InformationValueDate RecordedSex Assigned at RtfelEkkp38/27/2024 1:36 PM EDTLegal DpfSqiv0306/29/2022 11:50 PM EDTGender CbudbgjzYuvl07/27/2024 1:36 PM EDTSexual CniuedhtsliShgguvj45/27/2024 1:36 PM EDT Last Filed Vital Signs Vital SignReadingTime TakenCommentsBlood Watjnzjw634/7605 11:11 AM EDT Grktk1770 11:11 AM JITPcuslfwirvs15.1 ??C (97 ??F)08/19/2024 11:11 AM EDTRespiratory Aeiw162508/19/2024 11:11 AM EDTOxygen Xvqgiqsxmd36%08/19/2024 11:11 AM EDTInhaled Oxygen Concentration--Fuypch73.5 kg (193 lb)08/19/2024 11:11 AM LZFHspnjj650.3 cm (5' 9 )08/19/2024 11:11 AM EDTBody Mass Index28.505 11:11 AM EDT Plan of Treatment Health MaintenanceDue DateLast DoneCommentsCT Aajzwiwadosb75/18/1954FIT-DNA 1953FIT1953FOBT4COVID-19 Vaccine (3 - Moderna risk series) /01/2021, 1Diabetes: Urine Protein Auwaekglk99/09/2025 4Diabetes: Hemoglobin A1C501/, 11/15/2023, 05/26/2023, Additional history existsInfluenza Vaccine (#1), 01/24/2023, 02/01/2022, Additional history existsDiabetes: Retinopathy Qwwlfqgzr85/03/2026 01/18/2024, 01/18/2024, 01/18/2024, Additional history existsSigmoidoscopy 5Colonoscopy, 08/31/2024, 08/08/2019 Colorectal Cancer Xmdbawtot98/17/2035Pneumococcal Vaccine: 65+ YearsCompleted 03/04/2024, 03/04/2024 Procedures Procedure NamePriorityDate/TimeAssociated DiagnosisCommentsCT THORACIC SPINE WO IVCON01/24/2025 2:[address] LUMBAR SPINE WO IVCON01/24/2025 2:16 PM EDT [facility] CMV DNA DETECTION AND LKRYCIfciufq64/06/2025 4:30 AM EDT [facility] TACROLIMUS BLD-TBVKKgjtyil43/06/2025 4:30 AM EDT [facility] GGT SERPL-HYCUNldppkq73/06/2025 4:30 AM EDT [facility] MAGNESIUM SERPL-UQCACadgmjj11/06/2025 4:30 AM EDT [facility] CRP SERPL-NCCYMhvdjlc29/06/2025 4:30 AM EDT [facility] COMP METAB 2000 PNL KGWKRWpdsftf88/06/2025 4:30 AM EDT [facility] NT-PROBNP SERPL-DNYDXssnzjo06/06/2025 4:30 AM EDT [facility] PHOSPHATE SERPL-FHZKTpgmlpl01/06/2025 4:30 AM EDT [facility] CBC W AUTO DIFF RXKIdaicqn51/06/2025 4:30 AM EDT [facility] TACROLIMUS BLD-GBXHNepavzd36/02/2025 4:47 AM EDT [facility] GGT SERPL-CHLWQbmmxtz14/02/2025 4:47 AM EDT [facility] CBC W AUTO DIFF QUBKlqmcsz87/02/2025 4:47 AM EDT [facility] MAGNESIUM SERPL-VJDIFvtrpmm85/02/2025 4:47 AM EDT [facility] CRP SERPL-IBJZMxptjra36/02/2025 4:47 AM EDT [facility] COMP METAB 2000 PNL XZSGWImajpgm99/02/2025 4:47 AM EDT [facility] PHOSPHATE SERPL-KSJTPxetlqk29/02/2025 4:47 AM EDT [facility] NT-PROBNP SERPL-YJDFHvycnzq55/02/2025 4:47 AM EDT [facility] GGT SERPL-SWDNJcichjq78/01/2025 5:30 AM EDT [facility] CBC W AUTO DIFF TSZAgkybex40/01/2025 5:30 AM EDT [facility] MAGNESIUM SERPL-CKOYLrfbdjq83/01/2025 5:30 AM EDT [facility] CRP SERPL-JLFJVeyynwx85/01/2025 5:30 AM EDT [facility] COMP METAB 2000 PNL XRFHIZpdlmca71/01/2025 5:30 AM EDT [facility] TACROLIMUS BLD-RSBUJrmfkew64/01/2025 5:01 AM EDT [facility] BACTERIA UR ERHAIplboqh37/24/2025 3:16 PM EDT [facility] BACTERIA BLD YTVISmhtgan68/22/2025 7:11 PM EDT [facility] BACTERIA BLD WVGCDmunwur68/22/2025 5:11 PM EDT ECHO01/02/2025 8:55 AM EDT ECG 12-LEAD12/25/2024 1:20 PM EDT [facility] BACTERIA SPEC ANAEROBE QZHDMurnvxs51/08/2025 11:44 AM EDT [facility] BACTERIA FLD SLQQHylwcox54/08/2025 11:44 AM EDT [facility] CYTOLOGY NON-CQXLyswxgc80/08/2025 11:44 AM EDT [facility] BACTERIA BLD CQSSRhwzang38/05/2025 12:52 AM EDT [facility] BACTERIA BLD XWYDDqasgnv40/05/2025 12:52 AM EDT [facility] BACTERIA FLD XPCIVrvtuak26/04/2025 9:20 AM EDT [facility] BACTERIA SPEC RESP HZESQuuoswg13/02/2025 8:20 PM EDT [facility] BACTERIA BLD CCGESulrluz66/02/2025 2:32 PM EDT [facility] BACTERIA BLD CDAETjhlgpe24/02/2025 2:06 PM EDT [facility] BACTERIA BLD FXFYZqzqwlw56/01/2025 9:10 AM EDT [facility] BACTERIA BLD ARMBMkronfc81/01/2025 8:48 AM EDT POCT GLYCATED HEMOGLOBIN, CVSHDUlnjmnh52/31/2024 11:40 AM EDT Metabolic syndrome X MICROALBUMIN / CREATININE URINE YEJOVNiqbgna87/09/2024 8:31 AM EST Screening for prostate cancer Benign essential hypertension Thrombocytopenia Fatty liver Dyslipidemia COLOR FUNDUS PHOTOGRAPHY - OU - BOTH TVDNEyhuukk43/07/2023 12:00 PM EST IYNTYCKTQTAWtzdtlh61/23/2020 12:00 PM EDT from Last 3 Months or Most Recently Relevant to Health Maintenance Results * CT THORACIC SPINE WO IVCON (01/24/2025 2:16 PM EDT)Anatomical RegionLaterality ModalityOtherSpecimen (Source)Anatomical Location / LateralityCollection Method / VolumeCollection TimeReceived Time01/24/2025 2:16 PM EDT Addenda Addendum by Radiology, Radiologist, on 01/24/2025 4:13 PM EDT * * *Final Report* * * * ??* ??* SEE BOTTOM OF REPORT FOR ADDENDED TEXT * ??* ??* DATE OF EXAM: Jan 24 2025 ??2:16PM ?? [facility] ?? 0514 ??- ??CT THORACIC SPINE WO [...] processes versus sequela of prior fractures, unchanged Die Casting Supervisor: SRINI ?? Transcribe Date/Time: Jan 24 2025 ??4:06P Dictated by : KHLOE DELGADO MD This examination was interpreted and the report reviewed and electronically signed by: KHLOE DELGADO MD on Jan 24 2025 ??3:21PM ??EST This document has been addended by: KHLOE DELGADO MD on Jan 24 2025 ?? 4:10PM ??EST [id number]^AGFA_IDC^SI^ACN Narrative 01/24/2025 3:23 PM EDT * * *Final Report* * * DATE OF EXAM: Jan 24 2025 ??2:16PM ?? [facility] ?? 0514 ??- ??CT THORACIC SPINE WO IVCON ??/ PROCEDURE REASON: severe back pain, T12 burst fx s/p orif ? * * * * Physician Interpretation * * * * EXAMINATION: ??CT THORACIC [...] and assume there are 5 lumbar-type vertebrae. Die Casting Supervisor: PSCB ?? Transcribe Date/Time: Jan 24 2025 ??2:46P Dictated by : KHLOE DELGADO MD This examination was interpreted and the report reviewed and electronically signed by: KHLOE DELGADO MD on Jan 24 2025 ??3:21PM ??EST [id number]^AGFA_IDC^SI^ACN Procedure Note Radiology, Radiologist, - 01/24/2025 * * *Final Report* * * DATE OF EXAM: Jan 24 2025 2:16PM [facility] 0514 - CT THORACIC SPINE WO IVCON [...] and assume there are 5 lumbar-type vertebrae. Die Casting Supervisor: SRINI Transcribe Date/Time: Jan 24 2025 2:46P Dictated by : KHLOE DELGADO MD This examination was interpreted and the report reviewed and electronically signed by: KHLOE DELGADO MD on Jan 24 2025 3:21PM EST [id number]^AGFA_IDC^SI^ACN Authorizing ProviderResult TypeResult StatusGeneric External Data Provider CLINISYNC IMAGINGEdited Result - Final * CT LUMBAR SPINE WO IVCON (01/24/2025 2:16 PM EDT)Anatomical RegionLaterality ModalityOtherSpecimen (Source)Anatomical Location / LateralityCollection Method / VolumeCollection TimeReceived Time01/24/2025 2:16 PM EDT Addenda Addendum by Radiology, Radiologist, on 01/24/2025 4:13 PM EDT * * *Final Report* * * * ??* ??* SEE BOTTOM OF REPORT FOR ADDENDED TEXT * ??* ??* DATE OF EXAM: Jan 24 2025 ??2:16PM ?? [facility] ?? 0508 ??- ??CT LUMBAR SPINE WO [...] processes versus sequela of prior fractures, unchanged Die Casting Supervisor: SRINI ?? Transcribe Date/Time: Jan 24 2025 ??4:06P Dictated by : KHLOE DELGADO MD This examination was interpreted and the report reviewed and electronically signed by: KHLOE DELGADO MD on Oct 10 2025 ??3:21PM ??EST This document has been addended by: KHLOE DELGADO MD on Jan 24 2025 ?? 4:10PM ??EST [id number]^AGFA_IDC^SI^ACN Narrative 01/24/2025 3:23 PM EDT * * *Final Report* * * DATE OF EXAM: Jan 24 2025 ??2:16PM ?? [facility] ?? 0508 ??- ??CT LUMBAR SPINE WO IVCON ??/ PROCEDURE REASON: severe back pain, T12 burst fx s/p orif ? * * * * Physician Interpretation * * * * EXAMINATION: ??CT THORACIC [...] and assume there are 5 lumbar-type vertebrae. Die Casting Supervisor: PSCB ?? Transcribe Date/Time: Jan 24 2025 ??2:46P Dictated by : KHLOE DELGADO MD This examination was interpreted and the report reviewed and electronically signed by: KHLOE DELGADO MD on Jan 24 2025 ??3:21PM ??EST [id number]^AGFA_IDC^SI^ACN Procedure Note Radiology, Radiologist, - 01/24/2025 * * *Final Report* * * DATE OF EXAM: Jan 24 2025 2:16PM [facility] 0508 - CT LUMBAR SPINE WO IVCON [...] and assume there are 5 lumbar-type vertebrae. Die Casting Supervisor: SRINI Transcribe Date/Time: Jan 24 2025 2:46P Dictated by : KHLOE DELGADO MD This examination was interpreted and the report reviewed and electronically signed by: KHLOE DELGADO MD on Jan 24 2025 3:21PM EST [id number]^AGFA_IDC^SI^ACN Authorizing ProviderResult TypeResult StatusGeneric External Data Provider [facility]IN[facility] IMAGINGEdited Result - Final * [facility] TACROLIMUS BLD-MCNC (01/20/2025 4:30 AM EDT) Only the most recent of3 resultswithin the time period is included. ComponentValueRef RangeTest MethodAnalysis TimePerformed AtPathologist Signature [facility] TACROLIMUS BLD-MCNC8.65.0 - 20.0 ng/mLCCFComment:Individualized target levels for a given patient will [...] situation. Test performed by chemiluminescent immunoassay using [employer] i.Specimen (Source)Anatomical Location / LateralityCollection Method / VolumeCollection TimeReceived Time01/20/2025 4:30 AM EDT10/09/2024 5:29 PM EDT Narrative CLINISYNC - 01/20/2025 7:30 PM EDT Specimen Type: BLOOD SPECIMEN Ordering Facility: [facility] ?Address: [address] [place] [address] Original Ordering Provider: DAVID BLACKBURN Authorizing ProviderResult TypeResult StatusGeneric External Data Provider CLINISYNCFinal ResultPerforming OrganizationAddressty/[facility]/ZIP CodePhone Number CLINISYNC [facility] [address] [address] * [facility] PHOSPHATE SERPL-MCNC (01/20/2025 4:30 AM EDT) Only the most recent of2 resultswithin the time period is included. ComponentValueRef RangeTest MethodAnalysis TimePerformed AtPathologist Signature [facility] PHOSPHATE SERPL-MCNC4.12.7 - 4.8 mg/dLCCFSpecimen (Source)Anatomical Location / LateralityCollection Method / VolumeCollection TimeReceived Time 01/20/2025 4:30 AM EDT1 8:56 AM EDT Narrative CLINISYNC - 01/20/2025 10:57 AM EDT Specimen Type: BLOOD SPECIMEN Ordering Facility: [facility] ?Address: [address] [place] [address] Original Ordering Provider: DAVID BLACKBURN Authorizing ProviderResult TypeResult StatusGeneric External Data Provider CLINISYNCFinal ResultPerforming OrganizationAddValley For[facility] & Hospitalty/[facility]/ZIP CodePhone Number CLINISYNC [facility] [address] [place] [address] * (ABNORMAL) [facility] NT-PROBNP SERPL-MCNC (01/20/2025 4:30 AM EDT) Only the most recent of2 resultswithin the time period is included. ComponentValueRef RangeTest MethodAnalysis TimePerformed AtPathologist Signature [facility] NT-PROBNP SERPL-WKEH291(H)<125 pg/mLCCFSpecimen (Source)Anatomical Location / LateralityCollection Method / VolumeCollection TimeReceived Time01/20/2025 4:30 AM EDT1 8:56 AM EDT Narrative CLINISYNC - 01/20/2025 11:01 AM EDT Specimen Type: BLOOD SPECIMEN Ordering Facility: [facility] ?Address: [address] [place] [address] Original Ordering Provider: DAVID BLACKBURN Authorizing ProviderResult TypeResult StatusGeneric External Data Provider CLINISYNCFinal ResultPerforming OrganizationAddValley Forge Medical Center & Hospitalty/State/ZIP CodePhone Number REIDISYNC [facility] [address] [place] [address] * (ABNORMAL) [facility] GGT SERPL-CCNC (01/20/2025 4:30 AM EDT) Only the most recent of3 resultswithin the time period is included. ComponentValueRef RangeTest MethodAnalysis TimePerformed AtPathologist Signature [facility] GGT SERPL-YYQF044(H)10 - 70 U/LCCFSpecimen (Source)Anatomical Location / LateralityCollection Method / VolumeCollection TimeReceived Time01/20/2025 4:30 AM EDT1 1:12 PM EDT Narrative CLINISYNC - 01/20/2025 3:18 PM EDT Specimen Type: BLOOD SPECIMEN Ordering Facility: [facility] ?Address: [address] [place] [address] Original Ordering Provider: DAVID BLACKBURN Authorizing ProviderResult TypeResult StatusGeneric External Data Provider CLINISYNCFinal ResultPerforming OrganizationAddValley Forge Medical Center & Hospitalty/State/ZIP CodePhone Number MALLORY [facility] [address] [address] * (ABNORMAL) [facility] CRP SERPL-MCNC (01/20/2025 4:30 AM EDT) Only the most recent of3 resultswithin the time period is included. ComponentValueRef RangeTest MethodAnalysis TimePerformed AtPathologist Signature [facility] CRP SERPL-MCNC17.1(H)<0.9 mg/dLCCFSpecimen (Source)Anatomical Location / LateralityCollection Method / VolumeCollection TimeReceived Time01/20/2025 4:30 AM EDT1 8:56 AM EDT Narrative CLINISYNC - 01/20/2025 11:11 AM EDT Specimen Type: BLOOD SPECIMEN Ordering Facility: [facility] ?Address: [address] [place] [address] Original Ordering Provider: DVAID BLACKBURN Authorizing ProviderResult TypeResult StatusGeneric External Data Provider CLINISYNCFinal ResultPerforming OrganizationAddressty/State/ZIP CodePhone Number MALLORY [address] [address] [place] [address] * [facility] CMV DNA DETECTION AND QUANT (01/20/2025 4:30 AM EDT)ComponentValueRef RangeTest MethodAnalysis TimePerformed AtPathologist SignatureCCF CMV DNA PLAS JESSICA+PROBE-ACNCNot detectedNot DetectedCCFSpecimen (Source)Anatomical Location / LateralityCollection Method / VolumeCollection TimeReceived Time01/20/2025 4:30 AM EDT1 5:29 PM EDT Narrative CLINISYNC - 01/20/2025 11:41 PM EDT Specimen Type: BLOOD SPECIMEN Ordering Facility: [facility] ?Address: [address] [place] [address] Original Ordering Provider: DAVID BLACKBURN Authorizing ProviderResult TypeResult StatusGeneric External Data Provider CLINISYNCFinal ResultPerforming OrganizationAddressty/State/ZIP CodePhone Number [facility]ORY [facility] [address] [address] * (ABNORMAL) [facility] CBC W AUTO DIFF BLD (01/20/2025 4:30 AM EDT) Only the most recent of3 resultswithin the time period is included. ComponentValueRef RangeTest MethodAnalysis TimePerformed AtPathologist Signature [facility] WBC # BLD AUTO15.14(H)3.70 - 11.00 k/uLCCFCCF RBC # BLD AUTO2.50(L)4.20 - 6.00 m/uLCCFCCF HGB BLD-MCNC8.1(L)13.0 - 17.0 g/dLCCFCCF HCT VFR BLD AUTO25.6(L) 39.0 - 51.0 %CCFCCF MCV RBC MGWA136.4(H)80.0 - 100.0 fLCCFCCF MCH RBC QN AUTO 32.426.0 - 34.0 pgCCFCCF MCHC RBC AUTO-MCNC31.630.5 - 36.0 g/dLCCFCCF RDW RBC-RTO19.9(H)11.5 - 15.0 %CCFCCF PLATELET # BLD [id number] - 400 k/uLCCFCCF PMV BLD AUTO10.69.0 - 12.7 fLCCFCCF NRBC/100 WBC BLD-RTO0.0/100 WBCCCFCCF NRBC # BLD AUTO<0.01<0.01 k/uLCCFCCF NEUTROPHILS/LEUK NFR BLD AUTO89.0%CCFCCF NEUTROPHILS # BLD AUTO13.47(H)1.45 - 7.50 k/uLCCFCCF LYMPHOCYTES/LEUK NFR BLD AUTO6.0%CCFCCF LYMPHOCYTES # BLD AUTO0.91(L)1.00 - 4.00 k/uLCCFCCF MONOCYTES/LEUK NFR BLD AUTO 2.0%CCFCCF MONOCYTES # BLD AUTO0.30<0.87 k/uLCCFCCF EOSINOPHIL/LEUK NFR BLD AUTO 1.0%CCFCCF EOSINOPHIL # BLD AUTO0.15<0.46 k/uLCCFCCF BASOPHILS/LEUK NFR BLD AUTO 1.0%CCFCCF BASOPHILS # BLD AUTO0.15(H)<0.11 k/uLCCFCCF META%1.0%CCFCCF WBC LEFT SHIFT BLD QL AUTOPresentCCFPLATELET # BLD ESTAdequateCCFCCF RED CELL MORPH Reviewed: see results of individual morphologiesCCFCCF POLYCHROMASIA BLD QL SMEARSlightCCFCCF ANISOCYTOSISPresentCCFCCF ACANTHOCYTES BLD QL SMEARFewCCFCCF OVALOCYTES BLD QL SMEARFewCCFCCF DIFFERENTIAL METHOD BLDManualCCFSpecimen (Source)Anatomical Location / LateralityCollection Method / VolumeCollection TimeReceived Time01/20/2025 4:30 AM EDT1 8:56 AM EDT Narrative CLINISYNC - 01/20/2025 10:54 AM EDT Specimen Type: BLOOD SPECIMEN Ordering Facility: [facility] ?Address: [address] [place] [address] Original Ordering Provider: DAVID BLACKBURN Authorizing ProviderResult TypeResult StatusGeneric External Data Provider CLINISYNCFinal ResultPerforming OrganizationAddressCity/State/ZIP CodePhone Number CLINISYNC [facility] [address] [place] [address] * (ABNORMAL) CCF MAGNESIUM SERPL-MCNC (01/20/2025 4:30 AM EDT) Only the most recent of3 resultswithin the time period is included. ComponentValueRef RangeTest MethodAnalysis TimePerformed AtPathologist Signature CCF MAGNESIUM SERPL-MCNC1.6(L)1.7 - 2.3 mg/dLCCFSpecimen (Source)Anatomical Location / LateralityCollection Method / VolumeCollection TimeReceived Time 01/20/2025 4:30 AM EDT1 8:56 AM EDT Narrative CLINISYNC - 01/20/2025 11:11 AM EDT Specimen Type: BLOOD SPECIMEN Ordering Facility: [facility] ?Address: [address] [place] [address] Original Ordering Provider: DAVID BLACKBURN Authorizing ProviderResult TypeResult StatusGeneric External Data Provider CLINISYNCFinal ResultPerforming OrganizationAddressCity/State/ZIP CodePhone Number M[place] [place] [address] [place] [address] * (ABNORMAL) CCF COMP METAB 2000 PNL SERPL (01/20/2025 4:30 AM EDT) Only the most recent of3 resultswithin the time period is included. ComponentValueRef RangeTest MethodAnalysis TimePerformed AtPathologist Signature CCF PROT SERPL-MCNC6.0(L)6.3 - 8.0 g/dLCCFCCF ALBUMIN SERPL-MCNC2.9(L)3.9 - 4.9 g/dLCCFCCF CALCIUM SERPL-MCNC8.78.5 - 10.2 mg/dLCCFCCF BILIRUB SERPL-MCNC0.30.2 - 1.3 mg/dLCCFCCF ALP SERPL-RCVN974(H)38 - 113 U/LCCFCCF AST SERPL-CEDT2028 - 40 U/LCCFCCF ALT SERPL-SLDX6928 - 54 U/LCCFCCF GLUCOSE SERPL-ITRY4789 - 99 mg/dLCCF Comment: The [place] [employer] Association (ADA) provides guidance for cutoff [...] Standards of Medical Care in Diabetes 2016, [place] [employer]. Diabetes Care. 2016.39(Suppl 1). CCF BUN SERPL-JNWR918 - 24 mg/dLCCFCCF CREAT SERPL-MCNC0.970.73 - 1.22 mg/dLCCF CCF SODIUM SERPL-NBLD919(L)136 - 144 mmol/LCCFCCF POTASSIUM SERPL-SCNC5.3(H)3.7 - 5.1 mmol/LCCFCCF CHLORIDE SERPL-SCNC97(L)98 - 107 mmol/LCCFCCF CO2 SERPL-SCNC 2322 - 30 mmol/LCCFCCF ANION GAP SERPL-SCNC98 - 15 mmol/LCCFEGFRCR SERPLBLD CKD- EPI 398661>=60 mL/min/1.73m???CCFComment:Estimated Glomerular Filtration Rate (eGFR) is calculated using the 2020 CKD-EPI creatinine equation. This equation utilizes serum creatinine, sex, and age as parameters. The creatinine assay has traceable calibration to isotope dilution-mass spectrometry. Refer to KDIGO guidelines for clinical interpretation. In patients with unstable renal function, e.g. those with acute kidney injury, the eGFRmay not accurately reflect actual GFR.Specimen (Source)Anatomical Location / LateralityCollection Method / VolumeCollection TimeReceived Time01/20/2025 4:30 AM EDT1 8:56 AM EDT Narrative CLINISYNC - 01/20/2025 11:11 AM EDT Specimen Type: BLOOD SPECIMEN Ordering Facility: [facility] ?Address: [address] [place] [address] Original Ordering Provider: DAVID BLACKBURN Authorizing ProviderResult TypeResult StatusGeneric External Data Provider CLINISYNCFinal ResultPerforming OrganizationAddressCity/State/ZIP CodePhone Number [facility] [address] [place] [address] * (ABNORMAL) CCF BACTERIA UR CULT (01/08/2025 3:16 PM EDT)ComponentValueRef RangeTest MethodAnalysis TimePerformed AtPathologist SignatureCCF BACTERIA UR CULTORGANISM ID: 1(A)CCFCCF BACTERIA UR CULT10,000 -<50,000 CFU/ml Mixed microbiotaCCFCCF BACTERIA UR CULTNo further workupCCFSpecimen (Source) Anatomical Location / LateralityCollection Method / VolumeCollection Time Received Time01/08/2025 3:16 PM EDT01/08/2025 4:38 PM EDT Narrative CLINISYNC - 01/09/2025 8:02 PM EDT Original Ordering Provider: NICK CAMERON Authorizing ProviderResult TypeResult StatusGeneric External Data Provider CLINISYNCFinal ResultPerforming OrganizationAddressCity/State/ZIP CodePhone Number [facility] [address] [address] CCF * CCF BACTERIA BLD CULT (01/06/2025 7:11 PM EDT) Only the most recent of8 resultswithin the time period is included. ComponentValueRef RangeTest MethodAnalysis TimePerformed AtPathologist Signature [facility] BACTERIA BLD CULT CULTURE, BLOOD: ?? No growth 5 days CCFSpecimen (Source)Anatomical Location / LateralityCollection Method / Volume Collection TimeReceived Time01/06/2025 7:11 PM EDT01/06/2025 9:50 PM EDT Narrative CLINISYNC - 01/11/2025 11:01 PM EDT Original Ordering Provider: FABY SANDOVAL Authorizing ProviderResult TypeResult StatusGeneric External Data Provider CLINISYNCFinal ResultPerforming OrganizationAddValley Forge Medical Center & Hospitalty/State/ZIP CodePhone Number [facility] [address] [address] * ECHO (01/02/2025 8:55 AM EDT)Anatomical RegionLateralityModalityOtherSpecimen (Source)Anatomical Location / LateralityCollection Method / VolumeCollection TimeReceived Time01/02/2025 8:55 AM EDT Narrative 01/02/2025 11:48 AM EDT ? Echocardiography Report: Transthoracic Echo [facility] [place] [facility] Date of service: 01/02/2025 8:55:11 AM ATTENDANT ? Ordering physician: BARRERA RIVERA Exam indication: Evaluation of known heart failure to guide therapy ? Technologist: Ria Weaver Interpreting physician: Lena Andrade MD ? PATIENT: ?? Name: MR. LOYD BLANDON : 1955 Age: 69 years Gender: M ? History of hypertension and chronic kidney disease. Previous cardiovascular interventions: Liver transplant ? Primary rhythm: sinus. Secondary rhythm: PAC. Height: 175.30 cm BSA: 1.94 m??? Weight: 77.30 kg ??BMI: 25.2 kg/m? Heart rate ? 85 bpm Blood pressure 154/90 mmHg ? Technically difficult exam due to suboptimal positioning. Color Doppler was utilized to interrogate the cardiac valves assessed and spectral Doppler was utilized to determine the flow velocities and pressure gradients reported in this exam. ? MEASUREMENTS: ? Value ?Indexed ?Normal LV ID (diastole) ? 5.2 cm (2D) ?2.67 cm/m??? LV ID (systole) ?2.6 cm (2D) ?1.33 cm/m??? IVS, leaflet tips ?1.4 cm (2D) Posterior wall thickness 0.7 cm (2D) Left ventricular mass ?211 g (2D) ? 109 g/m??? LV stroke volume ? 55 ml (2D biplane) LV end diastolic volume 85 ml (2D biplane) 44.0 ml/m??? 34<=EDVi<75 LV end systolic volume ?? 30 ml (2D biplane) 15.6 ml/m??? Ejection Fraction 64 % (2D biplane) EF > 52 ? FINDINGS: ? LEFT VENTRICLE The left ventricle is normal in size. There is upper septal left ventricular hypertrophy. Left ventricular systolic function is normal. Left ventricular diastolic function was not evaluated due to limited. Wall Motion: All scored segments are normal. ? RIGHT VENTRICLE The right ventricle is normal in size. Right ventricular systolic function is normal. Estimated right ventricular systolic pressure is not reported due to an insufficient tricuspid regurgitation signal. Estimated right atrial pressure is 8 mmHg based on IVC assessment. ? RIGHT ATRIUM Inferior Vena Cava: The inferior vena cava appears normal measuring 1.20 cm. The vessel decreases less than 50 percent with inspiration. ? MITRAL VALVE There is trace mitral valve regurgitation. There is mild thickening. The pressure half time is 60 msec. The peak mitral E/A ratio is 1.01. The mitral flow deceleration time is 208 msec. ? TRICUSPID VALVE There is trace tricuspid valve regurgitation. There is no thickening. ? AORTIC VALVE There is no aortic valve regurgitation. Tricuspid aortic valve. There is mild thickening. There is mild calcification of the non coronary aortic cusp. The peak gradient is 10 mmHg (peak velocity = 159.4 cm/s). ? PULMONIC VALVE The pulmonic valve was not seen or not interrogated. There is trace pulmonic valve regurgitation. ? PERICARDIUM There is no pericardial effusion. ? CONCLUSIONS: - Technically difficult exam due to [...] with the prior echocardiographic exam performed on 12/18/2024. No significant change. ? * * * Final * * * CC [employer] Image ?: [id number]^[employer]^SI^SUID Procedure Note Radiology, Radiologist, MD - 01/02/2025 Echocardiography Report: Transthoracic Echo [facility] Bedside Date of service: 01/02/2025 8:55:11 AM ATTENDANT Ordering physician: BARRERA RIVERA Exam indication: Evaluation of known heart [...] an insufficient tricuspid regurgitation signal. Estimated right atrialpressure is 8 mmHg based on IVC assessment. RIGHT ATRIUM Inferior Vena Cava: The inferior vena cava appears normal measuring 1.20 cm. The vesseldecreases less than 50 percent with inspiration. MITRAL VALVE There is trace mitral valve regurgitation. There is mild thickening. Thepressure half time is 60 msec. The peak mitral E/A ratio is 1.01. Themitral flow deceleration time is 208 msec. TRICUSPID VALVE There is trace tricuspid valve regurgitation. There is no thickening. AORTIC VALVE There is no aortic valve regurgitation. Tricuspid aortic valve. There ismild thickening. There is mild calcification of the non coronary aorticcusp. The peak gradient is 10 mmHg (peak [...] normal in size. There is upper septal leftventricular hypertrophy. Left ventricular systolic function is normal. EF= 64 ??? 5% (2D biplane) - The right ventricle is normal in size. Right ventricular systolicfunction is normal. - There are no significant valvular abnormalities. - Exam was compared with the prior echocardiographic exam performed on 12/18/2024. No significant change. * * * Final * * * CC [employer] Image : [id number]^[employer]^SI^SUID Authorizing ProviderResult TypeResult StatusGeneric External Data Provider CLINISYNC IMAGINGFinal Result * ECG 12 lead (12/25/2024 1:20 PM EDT)Specimen (Source)Anatomical Location / LateralityCollection Method / VolumeCollection TimeReceived Time12/25/2024 1:20 PM EDT Narrative CCF - 01/22/2025 11:47 AM EDT Ventricular Rate : 74 BPM Atrial Rate ?: 74 ?BPM P-R Interval ? : 126 ? ms QRS Duration ? : 86 ?ms Q-T Interval ? : 412 ? ms QTC Calculation(Lewiszeyash) ?: 457 ? ms Calculated P [place] ?: 21 ?degrees Calculated R [place] ?: 34 ?degrees Calculated T [place] ?: 26 ?degrees WARNING: INTERPRETATION OF THIS ECG, ALTHOUGH ATTEMPTED, MAY BE ADVERSELY AFFECTED BY DATA QUALITY SINUS RHYTHM WITH PREMATURE ATRIAL COMPLEXES LOW VOLTAGE QRS, CONSIDER PULMONARY DISEASE, PERICARDIAL EFFUSION, OR NORMAL VARIANT BORDERLINE ECG Confirmed by ABENA URENA MD (57) on 01/22/2025 11:44:19 AM NAME : LOYD BLANDON PID : [id number] : 1955 ?? Gender : Male Race : ORD : [id number] ? Procedure Date : Dec 25 2024 13:20:17 Edit Date : Jan 22 2025 11:47:18 ? Diagnosis: WARNING: INTERPRETATION OF THIS ECG, ALTHOUGH ATTEMPTED, MAY BE ADVERSELY AFFECTED BY DATA QUALITY SINUS RHYTHM WITH PREMATURE ATRIAL COMPLEXES LOW VOLTAGE QRS, CONSIDER PULMONARY DISEASE, PERICARDIAL EFFUSION, OR NORMAL VARIANT BORDERLINE ECG ? Confirmed by ABENA URENA MD (57) on 01/22/2025 11:44:19 AM ? Test Reason : Chest Pain ? Location : 542 : G52NS ??G053- ? Overread By : ABENA URENA MD Edited By : ABENA URENA MD Referred By : PAUL SNOWDEN Acquired by : mira Procedure Note Radiology, Radiologist, - 01/22/2025 Ventricular Rate : 74 BPM Atrial Rate : 74 BPM P-R Interval : 126 ms QRS Duration : 86 ms Q-T Interval : 412 ms QTC Calculation(Bazett) : 457 ms Calculated P [place] : 21 degrees Calculated R [place] : 34 degrees Calculated T [place] : 26 degrees WARNING: INTERPRETATION OF THIS ECG, ALTHOUGH ATTEMPTED, MAY BE ADVERSELY AFFECTED BY DATA QUALITY SINUS RHYTHM WITH PREMATURE ATRIAL COMPLEXES LOW VOLTAGE QRS, CONSIDER PULMONARY DISEASE, PERICARDIAL EFFUSION, ORNORMAL VARIANT BORDERLINE ECG Confirmed by ABENA URENA MD (57) on 01/22/2025 11:44:19 AM NAME : LOYD BLANDON PID : [id number] : 1955 Gender : Male Race : ORD : [id number] Procedure Date : Dec 25 2024 13:20:17 Edit Date : Jan 22 2025 11:47:18 Diagnosis: WARNING: INTERPRETATION OF THIS ECG, ALTHOUGH ATTEMPTED, MAY BE ADVERSELY AFFECTED BY DATA QUALITY SINUS RHYTHM WITH PREMATURE ATRIAL COMPLEXES LOW VOLTAGE QRS, CONSIDER PULMONARY DISEASE, PERICARDIAL EFFUSION, ORNORMAL VARIANT BORDERLINE ECG Confirmed by ABENA URENA MD (57) on 01/22/2025 11:44:19 AM Test Reason : Chest Pain Location : 542 : G52NS G053- Overread By : ABENA URENA MD Edited By : ABENA URENA MD Referred By : PAUL SNOWDEN Acquired by : mira Authorbia ProviderResult TypeResult StatusGeneric External Data ProviderECG ORDERABLESFinal ResultPerforming OrganizationAddressCity/State/ZIP CodePhone Number CCF-CLINISYNC CCF * CCF CYTOLOGY NON-PRINCIPAL STATISTICAL PROGRAMMER (12/23/2024 11:44 AM EDT)ComponentValueRef RangeTest MethodAnalysis TimePerformed AtPathologist SignatureCCF CASE REPORTCCFComment: Medical Cytology Report ? Case: [id number] ? Authorizing Provider: ??Burton Qeuzada MD ?Collected: ? 12/23/2024 11:44 AM ? Ordering Location: ? HOSP MAIN G053 ? Received: ?12/23/2024 06:15 PM ? Pathologist: ? Belén Green MD ? Specimen: ?Peritoneal Cavity ? CCF FINAL DIAGNOSISCCFComment: A. Peritoneal Cavity, Fluid: Negative for malignant cells. Chronic inflammation. ? The following cell blocks were associated with this case: A1 Cell Block, Alcohol Fixed at 1601 EDT CCF GROSS DESCRIPTIONCCFComment: A. Peritoneal Cavity 30 cc cloudy light yellow fluid . ??ThinPrep and Cell Block prepared. CCF CLINICAL HISTORYCCFComment: Pre-op diagnosis: Abdominal fluid collection [R18.8] CCF ORDER COMMENTCCFComment: Pre-op diagnosis: Abdominal fluid collection [R18.8] CCF FINAL PERFORMING LABCCFComment: Technical component, take out waiter screening performed at: [facility] [address] [place] [address] ??CLIA: [id number] Diagnostic interpretation performed at: [facility], [address] [place] [address] ?? CLIA# [id number] Dehydrator Tender: Emmett New MD AP DISCLAIMERCCFComment: Laboratory Developed Test (LDT) Disclaimer: Performance characteristics of immunohistochemical, immunofluorescent, and chromogenic in-situ hybridization tests have been determined by the performing laboratory within the [facility] Department of Pathology and Laboratory Medicine ([facility], [facility], [facility], [facility], [facility], [facility], or [facility]) in a manner consistent with CLIA requirements. One or more of these tests may not have been cleared or approved by the FDA. The [facility] Department of Pathology and Laboratory Medicineis regulated under CLIA as qualified to perform high-complexity testing. These tests are used for clinical purposes. These should not be regarded as investigational or for research. Positive and negative controls stain appropriately. Specimen (Source)Anatomical Location / LateralityCollection Method / Volume Collection TimeReceived Time12/23/2024 11:44 AM EDT12/23/2024 6:58 PM EDT Narrative CLINISYNC - 12/24/2024 4:01 PM EDT Specimen Type: SPECIMEN OBTAINED BY [employer]IR[employer] Ordering Facility: [facility] ?Address: [address] [place] [address] Original Ordering Provider: BURTON QUEZADA Authorizing ProviderResult TypeResult StatusGeneric External Data Provider CLINISYNCHealth Systemal ResultPerforming OrganizationAddressty/State/[facility] CodePhone Number [facility] [address] [place] [phone] * CCF BACTERIA SPEC ANAEROBE CULT (12/23/2024 11:44 AM EDT)ComponentValueRef RangeTest MethodAnalysis TimePerformed AtPathologist SignatureCCF BACTERIA SPEC ANAEROBE CULT CULTURE, ANAEROBE: ?? Negative for anaerobes. CCFSpecimen (Source)Anatomical Location / LateralityCollection Method / Volume Collection TimeReceived Time12/23/2024 11:44 AM EDT12/23/2024 5:07 PM EDT Narrative CLINISYOR - 12/30/2024 9:23 AM EDT Original Ordering Provider: BURTON QUEZADA Authorizing ProviderResult TypeResult StatusGeneric External Data Provider [facility]NC[facility] ResultPerforming OrganizationAddressty/State/[facility] CodePhone Number MALLORY CC [address] [address] * CCF BACTERIA FLD CULT (12/23/2024 11:44 AM EDT) Only the most recent of2 resultswithin the time period is included. ComponentValueRef RangeTest MethodAnalysis TimePerformed AtPathologist Signature CCF BACTERIA FLD CULT CULTURE, BODY FLD: ?? No growth CCFCCF BACTERIA FLD CULT GRAM STAIN: ?? No organisms seen CCFCCF BACTERIA FLD CULTNo Polymorphonuclear LeukocytesCCFCCF BACTERIA FLD CULT Gram stain performed on cytospun specimen.CCFSpecimen (Source)Anatomical Location / LateralityCollection Method / VolumeCollection TimeReceived Time 12/23/2024 11:44 AM EDT12/23/2024 5:07 PM EDT Narrative CLINISYNC - 12/29/2024 3:24 PM EDT Original Ordering Provider: BURTON QUEZADA Authorizing ProviderResult TypeResult StatusGeneric External Data Provider CLINISYNCFinal ResultPerforming OrganizationAddValley Forge Medical Center & Hospitalty/[facility] CodePhone Number [facility] [address] [address] * (ABNORMAL) CCF BACTERIA SPEC RESP CULT (12/17/2024 8:20 PM EDT)ComponentValue Ref RangeTest MethodAnalysis TimePerformed AtPathologist SignatureCCF BACTERIA SPEC RESP CULTORGANISM ID: 1(A)CCFCCF BACTERIA SPEC RESP CULTFew normal respiratory floraCCFCCF BACTERIA SPEC RESP CULT GRAM STAIN: ?? No organisms seen (A)CCFCCF BACTERIA SPEC RESP CULTRare Polymorphonuclear leukocytes(A)CCFSpecimen (Source)Anatomical Location / LateralityCollection Method / VolumeCollection TimeReceived Time12/17/2024 8:20 PM EDT12/17/2024 9:00 PM EDT Narrative CLINISYOR - 12/20/2024 8:34 AM EDT Original Ordering Provider: OTTO GALLEGOS Authorizing ProviderResult TypeResult StatusGeneric External Data Provider CLINISYNCFinal ResultPerforming OrganizationAddValley Forge Medical Center & Hospitalty/[facility]/ZIP CodePhone Number [facility] [address] [address] CCF * POCT Glycated hemoglobin, total (11/15/2023 11:40 AM EDT)ComponentValueRef RangeTest MethodAnalysis TimePerformed AtPathologist SignatureHemoglobin A1C 5.3Specimen (Source)Anatomical Location / LateralityCollection Method / Volume Collection TimeReceived CuftJpeto52/31/2024 11:40 AM EDT Narrative Authorizing ProviderResult TypeResult StatusDaniel B Delgado MDPOINT OF CARE TEST ENTER/EDIT ORDERABLESFinal Result * Microalbumin / creatinine, urine ratio (05/26/2023 8:31 AM EST)ComponentValue Ref RangeTest MethodAnalysis TimePerformed AtPathologist SignatureCREATININE, RANDOM EDWSH7557 - 320 mg/dLQUESTALBUMIN, URINE<0.2See Note: mg/dLQUEST Comment: Reference Range: Reference Range Not established ALBUMIN/CREATININE RATIO, RANDOM URINENOTE<30 mcg/mg creatQUESTComment: NOTE: The urine albumin value is less than 0.2 mg/dL therefore we are unable to calculate excretion and/or creatinine ratio. The ADA defines abnormalities in albumin excretion as follows: Albuminuria Category ?Result (mcg/mg creatinine) Normal to Mildly increased <30 Moderately increased ? 30-299 Severely increased > OR = 300 The ADA recommends that at least two of three specimens collected within a 3-6 month period be abnormal before considering a patient to be within a diagnostic category. Specimen (Source)Anatomical Location / LateralityCollection Method / Volume Collection TimeReceived TimeUrineUrine specimen obtained by clean catch procedure / Tayuhhv1705/26/2023 8:31 AM EST05/26/2023 3:59 PM EST Narrative [facility] - 05/29/2023 2:42 PM EST FASTING:YES FASTING: YES Resulting Agency Comment Performing Organization Information ?Site ID: QPT ?Name: [facility] ?Address: [address] [place] [address], [address] [place] [phone] ?Director: Roland Duggan MD Authorizing ProviderResult TypeResult StatusDajackie SIMON URINE ORDERABLESFinal ResultPerforming OrganizationAddressCity/State/ZIP CodePhone Number [facility]ST * Color Fundus Photography - OU - Both Eyes (05/24/2022 12:00 PM EST)Anatomical RegionLateralityModalityHeadFundus PhotographySpecimen (Source)Anatomical Location / LateralityCollection Method / VolumeCollection TimeReceived Time 05/24/2022 12:00 PM EST Narrative 05/24/2022 12:00 PM EST PERFORMED AT [facility] LOCATION:[phone] [facility] Procedure Note CONVERSION, GENERIC - 08/31/2022 PERFORMED AT [facility] LOCATION:[id number] [facility] Authorizing ProviderResult TypeResult StatusRusty Delgado MDROPER [facility] PH[facility] Final Result * Colonoscopy (08/08/2019 12:00 PM EDT)Anatomical RegionLateralityModality EndoscopySpecimen (Source)Anatomical Location / LateralityCollection Method / VolumeCollection TimeReceived Time08/08/2019 12:00 PM EDT Narrative 08/08/2019 12:00 PM EDT PERFORMED AT [facility] LOCATION:[id number] polyp- repeat 5 years Procedure Note CONVERSION, GENERIC - 08/31/2022 PERFORMED AT [facility] LOCATION:[id number] polyp- repeat 5 years Authorizing ProviderResult TypeResult StatusDanira Delgado MDENDOSCOPY PROCEDURE ORDERABLESFinal Result from Last 3 Months or Most Recently Relevant to Health Maintenance Insurance Care Teams Team MemberRelationshipSpecialtyStart DateEnd Date Rusty Delgado MD [address] [place] [address] PCP - [employer]04/17/22 Rusty Delgado MD [address] [place] [address] PCP - GeneralInternal Medicine11/23/22
--- OUTSIDE RECORDS SUMMARY | 2025-03-17 12:25 | XMS_ITS | Clinical Summary ---
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 Name Role Phone Rusty Delgado MD Primary Care Provider [phone] Allergies No known active allergies Medications MedicationSigDispense QuantityRefillsLast FilledStart DateEnd DateStatus calcium carbonate-vitamin D3 500 mg-3.125 mcg (125 unit) tablet tablet 1 tablet.06/02/2023ctive multivitamin tablet Take 1 tablet by mouth in the morning.Active magnesium oxide (Mag-Ox) 400 mg tablet Take 500 mg by mouth in the morning.Active carvedilol (Coreg) 3.125 mg tablet Indications: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 60 tablet ctive Additional Information Patient taking differently:3.125 mg oralNightly, Reported on 02/12/2024 lansoprazole (Prevacid) [address] capsule Indications:Tipton's esophagus without dysplasiaTAKE 1 CAPSULE BEFORE A MEAL TWICE DAILY FOR 30 DAYS 60 capsule ctive furosemide (Lasix) 20 mg tablet Indications:Alcoholic cirrhosis of liver with ascites (CMS/HCC)Take 3 tablets (60 mg) by mouth two times daily. 180 tablet 6105/01/2023ctive spironolactone (Aldactone) 50 mg tablet Indications:Alcoholic cirrhosis of liver with ascites (CMS/HCC)Take 3 tablets (150 mg) by mouth in the morning. 90 tablet 4Active rifAXIMin (Xifaxan) 550 mg tablet Indications:Hepatic encephalopathy (CMS/HCC)Take 1 tablet (550 mg) by mouth two times daily. 60 tablet 1105Active lansoprazole (Prevacid) [address] capsule Indications:Tipton's esophagus without dysplasiaTAKE 1 CAPSULE BEFORE A MEAL TWICE DAILY FOR 30 DAYS 60 capsule 5Active Active Problems ProblemNoted DateDiagnosed DateHistory of tobacco abuse03/08/2024Nonalcoholic steatohepatitis (JARAMILLO)03/08/2024Hepatic zcfoupkcc91/22/2024leural effusion 02/19/2024ge-related nuclear cataract of both eyes01/18/2024ortic root acmzznxtkd24/05/2024 Overview (12/27/2023): Last Assessment & Plan: 3.8 cm ECHO 12/20/2023 Secondary esophageal varices without gyazhrsv72/28/2024Other zmhggyz0912/13/2023 QUESADA (dyspnea on exertion)12/13/2023lcoholic cirrhosis of liver with ascites 10/13/20235819Zsqkoqmxv52yspepsia and disorder of function of fdgbwrx47Esophageal acyzplbsdaj69Emesis bnormal weight lossEpisodic altered hgazwpshf75Grade II knamqekkhku41Fissure in anoHx of colonic urrebk69Myalgia03/16/2023 08/03/2023ontrolled type 2 diabetes mellitus without complication, without long-term current use of mqnidul49rystalline deposits in zwihqxue89yslipidemiaEpiretinal membrane Fatty liverInsomnia Metabolic syndrome X4401Nfccmhtutyldtxwt82/03/202304/18/2024 Olecranon kmzdbrja98/23/5600Gcjgudm86/23/2019Hyperglycemia due to type 2 diabetes ysnqrdpt97/24/2019Class 1 uttiowt6907/26/2018Primary gout07/26/2018 Ventricular premature beats06/28/2017Basal cell carcinoma of skin06/27/2017 Essential ddjvwakwrlwq71/13/2018Gastroesophageal reflux fbrnghy9506/27/2017 Incisional uudivu71arrett's pbzyektbt70GERD (gastroesophageal reflux disease)HTN (hypertension) Osteoporosis Resolved Problems ProblemNoted DateDiagnosed DateResolved DateBenign essential hypertension /Nuclear senile psdcshwb7003/08/2024 Immunizations ImmunizationAdministration DatesNext DueInfluenza, High Dose Seasonal, Preservative Free02/01/2022,02/17/2021Influenza, Seasonal, Quadrivalent, Fhyldyikdh22/10/2023Influenza, Qafxokfvqaj21/09/2013Influenza, injectable, svugptybsuqk18/30/2017,01/17/2017Influenza, injectable, quadrivalent, preservative free02/10/2019Influenza, seasonal, kcrsmbiefq40/17/2016,02/10/2015, 01/14/2014Tdap12/09/2021Zoster, Cdvmlogxiwf43/14/2023Zoster, live03/24/2015 Social History Tobacco UseTypesPacks/DayYears UsedDateSmoking Tobacco: FormerCigarettesQuit: 04/17/1994Smokeless Tobacco: Never Tobacco Cessation:Counseling Given: Not Answered Alcohol UseStandard Drinks/WeekCommentsNot Currently0 (1 standard drink = 0.6 oz pure alcohol)LAST DRINK HC UtilitiesAnswerDate RecordedIn the past 12 months has the electric, gas, oil, or water company threatened to shut off services in your home?No4Humiliation, Afraid, Rape, and Kick questionnaireAnswerDate RecordedWithin the last year, have you been afraid of your partner or ex-partner?03/08/2024Within the last year, have you been humiliated or emotionally abused in other ways by your partner or ex-partner?No 03/08/2024Within the last year, have you been kicked, hit, slapped, or otherwise physically hurt by your partner or ex-partner?03/08/2024Within the last year, have you been raped or forced to have any kind of sexual activity by your part ner or ex-partner?03/08/2024Overall Financial Resource Strain (CARDIA)Answer Date RecordedHow hard is it for you to pay for the very basics like food, housing, medical care, and heating?Not hard at all02/19/2024HQ-2AnswerDate RecordedPatient Health Questionnaire-2 Tnrgi00405/08/2023UT Safety & Environment AnswerDate RecordedWithin the last year, have you been afraid of your partner or ex-partner?08/07/2023Within the last year, have you been humiliated or emotionally abused in other ways by your partner or ex-partner?08/07/2023 Within the last year, have you been kicked, hit, slapped, or otherwise physically hurt by your partner or ex-partner?08/07/2023Within the last year, have you been raped or forced to have any kind of sexual activity by your part ner or ex-partner?08/07/2023hysically or Sexually AbusedNot on file08/07/2023 TransportationAnswerDate RecordedIn the past 12 months, has lack of transportation kept you from medical appointments or from getting medications?No 02/19/2024Lack of Transportation (Non-Medical)Not on file02/19/2024Housing Stability Vital SignAnswerDate RecordedUnable to Pay for Housing in the Last YearNot on file02/19/2024Number of Places Lived in the Last YearNot on file 02/19/2024In the last 12 months, was there a time when you did not have a steady place to sleep or slept in ashelter (including now)?No02/19/2024Hunger Vital SignAnswerDate RecordedWithin the past 12 months, you worried that your food would run out before you got the money to buymore.Never true02/19/2024an Out of Food in the Last YearNot on file02/19/2024Sex and Gender InformationValueDate RecordedSex Assigned at XybgrStnr57/22/2024 10:44 AM EDTLegal VbrOvne7907/13/2023 8:09 AM EDTGender BfprugxtGhvo43/22/2024 10:44 AM EDTSexual Orientation Heterosexual or Ciwrqzfb46/22/2024 10:44 AM EDT Last Filed Vital Signs Vital SignReadingTime TakenCommentsBlood Ivsfvqfc153/9103/08/2024 2:04 PM EST Npgwc396603/08/2024 2:04 PM NYXRhbabpzjyar14.6 ??C (97.9 ??F)02/20/2024 2:51 PM ESTRespiratory Htjv930804/21/2023 2:51 PM ESTOxygen Ypwqxpgfos74%02/20/2024 2:51 PM ESTInhaled Oxygen Concentration--Ffghhr81.4 kg (186 lb)03/08/2024 2:04 PM EST Ckfets569.3 cm (5' 9 )03/08/2024 2:04 PM ESTBody Mass Index27.4703/08/2024 2:04 PM EST Plan of Treatment Health MaintenanceDue DateLast DoneCommentsCT Wxaotjfsrfjq21/18/1954FIT-DNA 1953FIT1953FOBT1953Medicare Annual Wellness (AWV)1955 Diabetes: Retinopathy Ugwplvltj41/18/1964Depression Cawnanuja10/18/1966Fall Risk Frtmdiqau62/18/2019COVID-19 Vaccine (3 - Moderna risk series)07/22/2020 06/24/2020, 05/27/2020Zoster Vaccines (2 of 2)/, 03/24/2015 Diabetes: Hemoglobin A1C/12/2023, 3Diabetes: Urine Protein Jhxxorgod89/09/464287/12/2023Influenza Vaccine (#1)511/, 01/24/2023, 02/01/2022, Additional history arzeurVexjggmkslklb23/19/2030 5Adult Gfwwcsc34/4632Cilxpiiloqu68/17/203505/, 08/08/2019Colorectal Cancer Jspzjpzua77/17/2035Pneumococcal Vaccine: 50+ Years Uhrbfmhch17/18/2024HIB VaccinesAged OutNo longer eligible based on patient's age to complete this topicHPV VaccinesAged OutNo longer eligible based on patient's age to complete this topicIPV VaccinesAged OutNo longer eligible based on patient's age to complete this topicMeningococcal B VaccineAged OutNo longer eligible based on patient's age to complete this topicMeningococcal VaccineAged OutNo longer eligible based on patient's age to complete this topicRotavirus VaccinesAged OutNo longer eligible based on patient's age to complete this topic Insurance Advance Directives * Full Code (Latest Code Status on File) Date ActivatedDate ZkocgltrtdqMoscfffv18/4/2024 4:34 PM02/20/2024 6:27 PM Care Teams Team MemberRelationshipSpecialtyStart DateEnd Date Rusty Delgado MD [address] [place] [address] PCP - GeneralInternal Medicine08/01/23
--- OUTSIDE RECORDS SUMMARY | 2025-03-17 12:49 | XMS_ITS | CCD ---
Author Organization [facility] Care Team Providers Care Business Continuity Coordinator Name Role Phone MD Lex Carroll Attending Provider JUDITH Robledo Primary Care Provider Rick Ortega Unavailable JUDITH Robledo Primary Care Provider TALA Ortega Attending Provider Sanjay Robledo MD Unavailable Sanjay Robledo MD Primary Care Provider MD Minh Griffith Attending Provider DO Brayan Alves Attending Provider [phone] JUDITH Robledo Primary Care Provider TALA Ortega Attending Provider MD Minh Griffith Attending Provider DO Brayan Alves Attending Provider [phone] SANJAY ROBLEDO Primary Care Physician [phone] Brayan Alves H Referring Unavailable Jourdan ARRIAZA Attending Unavailable JUDITH Robledo Primary Care Provider MD Ward Ferrer Attending Provider Maggy [facility], DO Shepard Attending Provider [facility], DO Shepard Attending Provider [facility], DO Shepard Attending Provider JUDITH Robledo Primary Care Provider MD Ward Ferrer Attending Provider [phone] MD Autumn Farnsworth V Attending Provider [phone] Elizabeth OLIVAS, Irena Unavailable Jade Arora MD Unavailable [phone] Venkat WONG MD, Daniel B Primary Care Provider Irena Johnson MD Attending Provider Sanjay Robledo II Primary Care Provider [phone] SANJAY ROBLEDO Attending Unavailable XUAN ESPINO Attending [...] IRENA Referring Unavailable MONZON, ROSA Attending Unavailable EJAN JAQUEZ Attending Unavailable JOHNSON, IRENA Attending Unavailable MILAGRO SHEEHAN Referring Unavailable JL KENT Attending Unavailable SAFI, ASTON Referring Unavailable JOHNSON, IRENA Attending Unavailable Carina Ziegler RN Unavailable Unavailable Amos OLIVAS, Jonas Unavailable [phone] Albin Suarez DO Attending Provider [phone] Samsa - [facility], Devyn Admitting Unavailable Samsa - TBPadma, Devyn Attending Unavailable Sanjay Robledo Primary Care Unavailable Johnson, Irena Attending Unavailable Sanjay Robledo [...] Facility (12 sources)Sulfamethoxazole / Trimethoprim; Translations: [SULFAMETHOXAZOLE-TRIMETHOPRIM]Drug Hyelceb33-39-0073[facility] Work Phone: (3 sources)Dexmedetomidine; Translations: [DEXMEDETOMIDINE]Drug Allergy 99-68-1017[facility] Work Phone: Medications Current Medications MedicationDrug Class(es)DatesSig (Normalized)Sig (Original)acyclovir 400 mg oral tablet (20 sources)Herpesvirus Nucleoside Analog DNA Polymerase Inhibitor, Herpes Simplex Virus Nucleoside Analog DNA Polymerase Inhibitor, Herpes Zoster Virus Nucleoside Analog DNA Polymerase InhibitorStart: 09-18-2024 End: 42-41-6912grmn 1 tablet by mouth in the morningacyclovir (Zovirax) 400 MG tablet Take 400 mg by mouth in the morning and 400 mg in the evening. 11/12/2024 Activeaspirin 81 mg chewable tablet (20 sources)Platelet Aggregation Inhibitor, Nonsteroidal Anti-inflammatory Drug Start: 10-31-2024 End: 64-93-5755ldtzkou 81 MG chewable tablet Chew 81 mg in the morning. 11/12/2024 Active End: 99-59-1828qyeg 1 tablet by mouth once dailyaspirin, enteric coated (ASPIRIN, ENTERIC COATED) 81 mg EC tablet Take 81 mg by mouth once daily. DiscontinuedB Complex Vitamins (vitamin B complex) tablet (20 sources)Start: 61-57-3114yavg 1 tablet by mouth once dailyB Complex Vitamins (vitamin B complex) tablet Indications: Iron deficiency anemia, unspecified irondeficiency anemia type Take 1 tablet by mouth Daily 100 tablet 3 08/21/2024 Activebenzonatate 100 mg oral capsule (20 sources)Non-narcotic AntitussiveStart: 39-54-9752lfir 1 capsule by mouth every eight hours as neededbenzonatate (Tessalon) 100 MG capsule Take 100 mg by mouth every 8 (eight) hours if needed 10/30/2024 ActiveStart: 69-49-6231mstg 1 capsule by mouth every eight hours as neededbenzonatate (TESSALON PERLE) 100 mg capsule Take 1 capsule by mouth three times a day as needed forcough. 10/30/2024 Suspendedbumetanide 2 mg oral tablet (20 sources)Loop DiureticStart: 07-25-2024 End: 03-49-3753weqb 1 tablet by mouth twice azgkc946 hr buprenorphine 0.01 mg/hr transdermal system (13 sources)Partial Opioid AgonistStart: 11-12-2024 End: 82-43-0288amhvn 1 dose transdermal route every weekbuprenorphine (Butrans) 10 MCG/HR Place 1 patch on the skin once a week 11/12/2024 12/13/2024 Active calcium carbonate 1250 mg / cholecalciferol 125 unt oral tablet (20 sources)Vitamin DStart: 34-58-3321fqcc 1 tablet by mouth once dailyCalcium Carb-Cholecalciferol [...] mg oral tablet (8 sources)AnticholinergicStart: 11-10-2022 End: 52-11-2467ktis 1 tablet by mouth every eight hoursDicyclomine HCl 20 MG 1 tablet Orally Three times a day for 90 days Mar, Activefamotidine 20 mg oral tablet (20 sources)Histamine-2 Receptor AntagonistStart: 09-29-2024 End: 90-99-0816ywhb 1 tablet by mouth in the morningfamotidine (Pepcid) 20 MG tablet Take 20 mg by mouth in the morning and 20 mg in the evening. 11/12/2024 ActiveStart: 04-12-2023 End: 56-53-1879xhrh 1 tablet by mouth twice dailyFamotidine 40 mg tablet Discontinued 40 MG PO Twice daily 60 30 July 05, 2023 9:29am June 19, 2024 1:11pm FreeTextSi tablet Orally Twice a day; Note: Source Status: Taking; Refills: 5; Qty: 60 Tablet; Provider: Shannon Cabrera MStart: 11-10-2022 End: 42-62-7133hudf 1 tablet by mouth at bedtimefamotidine (Pepcid) 20 MG tablet Take 20 mg by mouth at bedtime. 0 11/10/2022 05/18/2023 Discontinuedfurosemide 40 mg oral tablet (20 sources)Loop DiureticStart: 49-18-8026yxaa 1 tablet by mouth in the morning furosemide (Lasix) 40 MG tablet Take 40 mg by mouth in the morning. 10/31/2024 ActiveStart: 21-39-8983zlag 1 tablet by mouth once dailyfurosemide (LASIX) 20 mg tablet Take 1 tablet by mouth once daily. 09/30/2024 SuspendedStart: 03-01-2024 End: 99-07-0124kzwr 3 tablets by mouth twice dailyfurosemide (LASIX) 20 mg tablet Take 60 mg by mouth two times a day. 03/01/2024 05/02/2024 Discontinued Start: 37-50-3414qwsd 3 tablets by mouth once dailyfurosemide (LASIX) 20 mg tablet Take 60 mg by mouth once daily. 03/01/2024 ActiveStart: 04-12-2023 End: 99-24-1471hjwd 1 tablet by mouth once daily in the morningFurosemide 40 mg tablet Discontinued 40 MG PO Every morning June 02, 2023 1:00am July 30, 2024 10:26am FreeTextSi tablet Orally Once a day; Note: Source Status: Taking; Refills: 11; Provider: Shannon Cabrera Mketorolac tromethamine 5 mg/ml ophthalmic solution (3 sources)Nonsteroidal Anti-inflammatory Drug, Cyclooxygenase InhibitorStart: 01-18-2024 End: 68-63-7944fsjj 1 drop(s) into the eye(s) in the morningketorolac (Acular) 0.5 % ophthalmic solution Indications: Age-related nuclear cataract of both eyes Administer 1 drop into affected eye(s) in the morning and 1 drop before bedtime. 5 mL 1 01/18/2024 02/17/2024 Activelactulose 667 mg/ml oral solution (20 sources)Osmotic LaxativeStart: 12-28-2023 End: 23-88-4294eief 10 g by mouth once dailylactulose (Enulose) 10 GM/15ML solution oral solution Take 10 g by mouth Daily 12/28/2023 Activelinaclotide 0.145 mg oral capsule (20 sources)Guanylate Cyclase-C AgonistStart: 33-88-2959bdkz 1 capsule by mouth in the morninglinaCLOtide (Linzess) 145 MCG capsule Take 145 mcg by mouth in the morning. 11/12/2024 ActiveMagnesium (3 sources)Start: 00-66-0483Pjaep: 26-06-4296Xhzmkdwou 200 mg tablet Active 500 MG PO Daily June 19, 2024 1:00ammagnesium hydroxide 80 mg/ml oral suspension (20 sources)Start: 37-70-0945fbqb 30 mL by mouth every twenty-four hours as neededmagnesium hydroxide (Milk of Magnesia) 400 MG/5ML suspension Take 30 mL by mouth Daily as needed 11/15/2024 Activemeclizine hydrochloride 25 mg oral tablet (3 sources)AntiemeticStart: 12-13-2023 End: 22-81-8431bidz 1 tablet by mouth three times daily as needed for dizziness meclizine (Antivert) 25 MG tablet Indications: Dizziness Take 1 tablet (25 mg) by mouth 3 (three) times a day as needed for dizziness for up to 10 days 30 tablet 12/13/2023 12/23/2023 Activemelatonin 3 mg oral tablet (20 sources)Start: 00-70-5875bsqz 1 tablet by mouth at bedtimemelatonin 3 MG tablet Take 3 mg by mouth at bedtime 11/12/2024 Activemethocarbamol 750 mg oral tablet (20 sources)Muscle RelaxantStart: 03-85-0331ubsj 1 tablet by mouth three times daily as neededmethocarbamol (Robaxin) 750 MG tablet Take 750 mg by mouth 3 (three) times a day as needed 11/12/2024 ActiveStart: 00-00-6886bslj 1 tablet by mouth twice daily in the morningmethocarbamol (ROBAXIN) 750 mg tablet Take 1 tablet by mouth two times a day. 60 tablet 1 11/15/2024 9:11 AM EDT 11/12/2024 SuspendedStart: 09-27-2024 End: 80-83-0577zkde 1 tablet by mouth every eight hours as neededmethocarbamol (ROBAXIN) 500 mg tablet Take 1 tablet by mouth three times a day as needed (muscle spasm). 09/27/2024 11/12/2024 Discontinuedmidodrine hydrochloride 10 mg oral tablet (20 sources)alpha-Adrenergic AgonistStart: 34-04-8104jkjpjhbjy (Proamatine) 10 MG tablet Take 10 mg by mouth in the morning and 10 mg at noon and 10 mg in the evening. 11/12/2024 ActiveStart: 65-53-3778fvgn 1 tablet by mouth every eight hoursmidodrine (PROAMITINE) 5 mg tablet Take 1 tablet by mouth every 8 hours. 09/27/2024 SuspendedMultiple Vitamins-Minerals (Multi For Him) tablet (20 sources)Multiple Vitamins-Minerals (Multi For Him) tablet Daily. Active Multiple Vitamins-Minerals (Multi For Him) tablet Daily. 0 ActiveMultivitamin (Daily Multi-Vitamin) tablet (11 sources)Start: 57-04-1270siap 1 tablet by mouth once dailyStart: 06-02-2023 take 1 tablet by mouth once dailyMultivitamin (Daily Multi-Vitamin) tablet Active 1 TAB PO Daily June 02, 2023 1:00amStart: 08-76-5174tsql 1 tablet by mouth once dailyMultivitamin (Daily Multi-Vitamin) tablet Active 1 TAB PO Daily June 02, 2023 12:00amofloxacin 3 mg/ml ophthalmic solution (2 sources)Quinolone AntimicrobialStart: 01-18-2024 End: 05-56-8936hgjs 1 drop(s) into the eye(s) five times dailyofloxacin (Ocuflox) 0.3 % ophthalmic solution Indications: Age-related nuclear cataract of both eyes Administer 1 drop into the right eye 5 (five) times a day for 1 day Starting 1 day before surgery,continue after surgery as directed 5 mL 1 01/18/2024 01/19/2024 ActiveoxyCODONE hydrochloride 5 mg oral tablet (16 sources)Opioid AgonistStart: 11-15-2024 End: 75-66-7081sdwe 5-10 mg by mouth every six hours as neededoxyCODONE (Roxicodone) 5 MG immediate release tablet Take 5-10 mg by mouth every 6 (six) hours if needed 11/15/2024 11/24/2024 ActiveStart: 11-12-2024 End: 68-61-8371vagr 1 tablet by mouth twice daily in the morning for pain oxyCODONE IR (ROXICODONE) 5 mg immediate release tablet Indications: Compression fracture of cervical spine, non-traumatic, with delayed healing, subsequent encounter , Generalized abdominal pain Take 1 tablet by mouth two times a day for 14 days. FOR PAIN. 28 tablet 11/15/2024 9:11 AM EDT 11/12/2024 11/29/2024 SuspendedStart: 10-30-2024 End: 03-74-6502gumw 1 tablet by mouth every six hours as neededoxyCODONE IR (ROXICODONE) 5 mg immediate release tablet Take 1 tablet by mouth every 6 hours as needed for up to 7 days. 0 10/30/2024 11/06/2024 ActiveStart: 09-27-2024 End: 67-99-2569prwl 1 tablet by mouth every six hours as neededoxyCODONE IR (ROXICODONE) 5 mg immediate release tablet Take 1 tablet by mouth every 6 hours as needed for up to 7 days. 0 09/27/2024 10/04/2024 ActiveStart: 08-19-2024 End: 53-05-8651yqct 1 capsule by mouth every six hours for painoxyCODONE (Oxy- IR) 5 MG immediate release capsule Indications: Other acute postprocedural pain Take1 capsule (5 mg) by mouth every 6 (six) hours if needed for severe pain for up to 5 days 20 wdueazm0208/19/2024 08/24/2024 Activepantoprazole 40 mg delayed release oral tablet (20 sources)Proton Pump InhibitorStart: 66-05-1148nygj 1 tablet by mouth in the morningpantoprazole (ProtoNix) 40 MG EC tablet Take 40 mg by mouth in the morning and 40 mg in the evening. Take before meals. 11/12/2024 ActiveStart: 09-27-2024 End: 31-24-3920klvu 1 tablet by mouth twice daily before mealtime, then take 4 tablets by mouth in the eveningpantoprazole DR (PROTONIX) 40 mg tablet Take 1 tablet by mouth two times a day before meals at 6 amand 4 pm. 09/27/2024 11/12/2024 Discontinuedpolyethylene glycol 3350 429840 mg / potassium chloride 2970 mg / sodium bicarbonate 6740 mg / sodium chloride 5860 mg / sodium sulfate 29097 mg powder for oral solution (1 source)Osmotic LaxativeStart: 08-12-2024 End: 58-61-0661fwf 3350-Electrolytes (GOLYTELY) 236-22.74-6.74 -5.86 gram suspension Indications: Encounter for screening colonoscopy Take 4,000 mL by mouth one time only for 1 dose. Refer to printed prep instructions from your provider. 4000 mL 08/12/2024 08/12/2024 ActiveprednisoLONE acetate 10 mg/ml ophthalmic suspension (2 sources)CorticosteroidStart: 01-18-2024 End: 09-04-7183jdophtngFIZE acetate (Pred-Forte) 1 % ophthalmic suspension Indications: Age-related nuclear cataract of both eyes Administer 1 drop into both eyes in the morning and 1 drop at noon and 1 drop in theevening and 1 drop before bedtime. Do all this for 14 days. 5 mL 1 01/18/2024 02/01/2024 Active rifAXIMin 550 mg oral tablet (20 sources)Rifamycin AntibacterialStart: 10-13-2023 End: 98-81-2259cbue 1 tablet by mouth in the morningrifAXIMin (Xifaxan) 550 MG tablet Take 550 mg by mouth in the morning and 550 mg in the evening. 10/26/2023 Activetamsulosin hydrochloride 0.4 mg oral capsule (20 sources)alpha-Adrenergic BlockerStart: 88-13-2065kahx 1 capsule by mouth every twenty-four hours at bedtimetamsulosin (Flomax) 0.4 MG 24 hr capsule Take 0.4 mg by mouth at bedtime 11/12/2024 ActiveStart: 50-72-6608bigq 1 capsule by mouth once daily at bedtimetamsulosin (FLOMAX) 0.4 mg Take 1 capsule by mouth daily at bedtime. 30 capsule 2 11/15/2024 9:11 AM EDT 11/12/2024 SuspendedStart: 15-73-3319klre 1 capsule by mouth once daily at bedtimetamsulosin (FLOMAX) 0.4 mg Take 1 capsule by mouth daily at bedtime. 09/29/2024 Suspendedtorsemide 20 mg oral tablet (20 sources)Loop DiureticStart: 87-00-1503lugi 1 tablet by mouth once daily torsemide (Demadex) 20 MG tablet Take 20 mg by mouth Daily 04/29/2024 Active Start: 04-29-2024 End: 74-14-5506kewf 3 tablets by mouth once dailytorsemide (DEMADEX) 20 mg tablet Take 3 tablets by mouth once daily. 270 tablet 04/29/2024 07/25/2024 Discontinued (Course of therapy completed)traZODone hydrochloride 50 mg oral tablet (20 sources)Serotonin Reuptake InhibitorStart: 09-27-2024 End: 23-26-3831yphy 1 tablet by mouth at bedtimetraZODone (Desyrel) 50 MG tablet Take 50 mg by mouth at bedtime 11/12/2024 Activeursodiol 300 mg oral capsule (20 sources)Bile AcidStart: 10-30-2024 End: 15-32-1426ngthhhmi (Actigall) 300 MG capsule Take 300 mg by mouth in the morning and 300 mg at noon and 300 mg in the evening. 11/12/2024 Active valGANciclovir 450 mg oral tablet (20 sources)Start: 23-48-7279bngr 2 tablets by mouth in the morning valGANciclovir (Valcyte) 450 MG tablet Take 900 mg by mouth in the morning and 900 mg in the evening. Take with meals. 10/30/2024 Active Completed/Discontinued Medications MedicationDrug Class(es)DatesSig (Normalized)Sig (Original)acetaminophen 500 mg oral tablet (20 sources)Start: 09-18-2024 End: 06-13-8688ucwi 1 tablet by mouth every six hours as neededacetaminophen (TYLENOL) 500 mg tablet Take 1 tablet by mouth every 6 hours as needed for pain. 60 tablet 09/18/2024 11/12/2024 Discontinuedacetaminophen 325 mg / oxyCODONE hydrochloride 5 mg oral tablet (10 sources)Opioid AgonistStart: 06-13-2023 End: 22-79-2166hhkl 1 tablet by mouth every six hours as needed for pain Oxycodone-Acetaminophen (Percocet) 5-325 mg tablet Discontinued 1 TAB PO Q6H as needed for pain 11 11June 13, 2023 July 05, 2023 9:01am20 ml albumin human, intermediate 250 mg/ml injection (2 sources)Human Serum AlbuminStart: 07-05-2024 End: 54-56-050699 g, INTRAVENOUS, at 400 mL/hr, ONCE, 1 dose, On Mon07/05/24 at 1100, IntraprocedureStart: 05-01-2024 End: .5 g, INTRAVENOUS, at 400 mL/hr, ONCE, 1 dose, On Mon05/01/24 at 1230, Intraprocedureatropine sulfate 0.025 mg / diphenoxylate hydrochloride 2.5 mg oral tablet (20 sources)Anticholinergic, Cholinergic Muscarinic Antagonist, Antidiarrheal Start: 07-05-2023 End: 73-75-9977kwqa 1 tablet by mouth three times dailyDiphenoxylate-Atropine 2.5-0.025 mg tablet Discontinued 1 TAB PO Three times daily July 05, 2023 12:00am June 19, 2024 1:12pmStart: 06-02-2023 End: 39-97-9293grns 1 tablet by mouth three times daily as needed for diarrhea Diphenoxylate-Atropine 2.5-0.025 mg tablet Discontinued 1 TAB PO Three times daily as needed for diarrhea June 02, 2023 1:00am June 13, 2023 12:59pm FreeTextSi tablet as needed OrallyFour times a day; Note: Source Status: Taking; Refills: 11; Qty: 120 Tablet; Provider: Shannon Cabrera MStart: 60-18-4844obwp 1 tablet by mouth every six hoursDiphenoxylate-Atropine [...] tablet (20 sources)gamma-Aminobutyric Acid-ergic AgonistStart: 07-05-2023 End: 21-20-9758hwyk 1 tablet by mouth once daily at bedtimeBaclofen 20 mg tablet Discontinued 20 MG PO Daily at bedtime July 05, 2023 12:00am June 1:11pmbaclofen (Lioresal) 20 MG tablet Take by mouth 3 (three) times a day PRN Activecalcium carbonate 500 mg chewable tablet (9 sources)Start: 10-29-0292mkqr 500 mg by mouth every eight hours as needed calcium carbonate (TUMS) 500 mg chew Take 1 tablet by mouth three times a day as needed. 09/27/20247586Esfdveccnkzoktgg-hfcotlysa-rwbd 333-133-5 MG per tablet (1 source) End: 00-27-8310elvjnbb-magnesium-zinc 333-133-5 MG per tablet Take 1 tablet by mouth in the morning and 1 tablet at noon and 1 tablet in the evening. Take with meals. 0 05/18/2023 Discontinuedcarvedilol 3.125 mg oral tablet (20 sources)alpha-Adrenergic Connie, beta-Adrenergic BlockerStart: 12-27-2023 End: 96-19-5811hrcv 1 tablet by mouth twice daily at mealtimeCarvedilol (Coreg) 3.125 mg tablet Discontinued 3.125 MG PO Twice daily June 19, 2024 1:00am July 30, 2024 10:27am must administer with a meal/foodStart: 11-27-2023 End: 90-00-1894eiew 1 tablet by mouth in the morningcarvedilol (Coreg) 3.125 MG tablet Take 3.125 mg by mouth in the morning and 3.125 mg in the evening. Take with meals. 11/27/2023 12/13/2023 Discontinued (Other)ciprofloxacin 500 mg oral tablet (9 sources)Quinolone AntimicrobialStart: 11-13-2024 End: 32-02-0824gigb 1 tablet by mouth twice daily in the morningciprofloxacin HCl (CIPRO) 500 mg tablet Take 1 tablet by mouth two times a day for 5 days. 10 tablet 11/15/2024 9:11 AM EDT 11/13/2024 11/20/2024 ExpiredDAPTOmycin (CUBICIN) 700 mg/100 mL pgbk iv piggyback in NaCl 0.9% 100 mL (10 sources)Start: 10-30-2024 End: 39-77-1729yecm 700 mg intravenously every twenty-four hoursDAPTOmycin (CUBICIN) 700 mg/100 mL pgbk iv piggyback in NaCl 0.9% 100 mL Inject 100 mL intravenously every 24 hours for 14 days. 1400 mL 10/30/2024 11/13/2024 Start: 10-30-2024 End: 33-60-7588cqup 700 mg intravenously every twenty-four hoursDAPTOmycin (CUBICIN) 700 mg/100 mL pgbk iv piggyback in NaCl 0.9% 100 mL Inject 100 mL intravenously every 24 hours for 14 days. 1400 mL 10/30/2024 11/13/2024 Active esomeprazole 40 mg delayed release oral capsule (20 sources)Proton Pump InhibitorStart: 06-02-2023 End: 10-66-5561Dnglxfojuugw Magnesium 40 mg capsule,delayed release(DR/EC) Discontinued 40 MG PO Twice daily June 02, 2023 1:00am June 19, 2024 1:12pm FreeTextSi capsule 30 minutes before morning meal & 1 capsule in the evening Orally twice a day; Note: Source Status: Taking; Refills: 12; Provider: Shannon Cabrera MStart: 95-92-3142Goeeqyzxqkui Magnesium 40 MG 1 capsule 30 minutes before morning meal & 1 capsule in the evening Orally twice a day for 30 days Sep, Active1 ml heparin sodium, porcine 5000 unt/ml injection (20 sources)Unfractionated Heparin, Anti-coagulantStart: 19-70-5547apzfag 1 mL by subcutaneous injection every twelve hoursheparin 5,000 unit/mL injection Inject 1 mL subcutaneously every 12 hours. 09/27/2024 Suspended hydroCHLOROthiazide 25 mg / triamterene 37.5 mg oral capsule (20 sources)Potassium-sparing Diuretic, Thiazide DiureticStart: 06-13-2023 End: 21-98-7681Szzpewsgpny-Hydrochlorothiazid 37.5-25 mg capsule Discontinued [facility] June 13, 2023 1:00am 2023 9:01amStart: 06-13-2023 End: 08-29-0333Gxzlepdqqmu-Hydrochlorothiazid Discontinued [facility] June 13, 2023 1:00am July 05, 2023 9:01amStart: 38-27-6720nsur 1 capsule by mouth once daily in the morning as neededtriamterene-hydroCHLOROthiazide (Dyazide) 37.5-25 MG capsule TAKE 1 CAPSULE BY MOUTH EVERY MORNING NEEDED FOR LEG SWELLING 03/16/2023 ActiveStart: 09-19-2022 End: 46-23-7723Ijmokvirrbm-Hydrochlorothiazid 37.5-25 mg capsule Discontinued 1 CAP PO As Directed September 19, 2022 12:00am June 02, 2023 11:15am End: 99-25-0955npsc 1 tablet by mouth in the morningtriamterene- hydrochlorothiazide (Maxzide-25) 37.5-25 MG tablet Take 1 tablet by mouth in the morning. 0 05/18/2023 Discontinuedibuprofen 800 mg oral tablet (13 sources)Nonsteroidal Anti-inflammatory DrugStart: 06-02-2023 End: 93-28-7866lgvz 1 tablet by mouth three times daily as needed for pain Ibuprofen 800 mg tablet Discontinued 800 MG PO Three times daily as needed for pain June 02, 2023 1:00am June 19, 2024 1:12pminsulin lispro 100 unt/ml injectable solution (9 sources)Insulin AnalogStart: 62-59-5356rcpshis lispro 100 unit/mL injection Inject 2 Units [...] with radiology test) (9 sources)Start: 11-12-2024 End: 49-75-1056fbkapc 1 dose intravenously once, then inject 1 [...] link.1 each 11/12/2024 11/13/2024 ExpiredStart: 11-12-2024 End: 04-83-3042uxjncg 1 dose intravenously once, then inject 1 [...] link.1 each 11/12/2024 11/13/2024 ActiveStart: 08-22-2024 End: 55-96-1346ncxgfz 1 dose intravenously once, then inject 1 [...] link.1 each 08/22/2024 08/23/2024 ActiveStart: 05-18-2024 End: 98-38-5114tw contrast (will be provided with radiology test) [...] 1 Each 05/18/2024 05/19/2024 ActiveStart: 05-18-2024 End: 75-78-5072mobtvz 1 dose intravenously once, then inject 1 [...] link.1 Each 05/18/2024 05/19/2024 ActiveStart: 04-23-2024 End: 81-24-9902ly contrast (will be provided with radiology test) [...] capsule (20 sources)Proton Pump InhibitorStart: 04-29-2024 End: 79-61-5970idyl 1 capsule by mouth once dailylansoprazole (PREVACID) 30 mg capsule Take 1 capsule by mouth once daily. 04/29/2024 09/18/2024 Discontinued Start: 25-21-7920xodu 1 capsule by mouth twice dailylansoprazole (Prevacid SoluTab) 30 MG disintegrating tablet Take 15 mg by mouth in the morning. Take before meals. Dissolve on tongue before swallowing particles; do not chew, cut, break, or swallow whole.. Inkoie67 ml lidocaine hydrochloride 20 mg/ml injection (3 sources)Antiarrhythmic, Amide Local AnestheticStart: 07-05-2024 End: 93-10-3464COLOGNCAMMA, X (OR/PROCEDURE) PRN, Starting on Mon07/05/24 at 0904, Until Mon07/05/24 at 0904, IntraprocedureStart: 05-31-2024 End: 45-57-0571RVZCAKZFBKZ, X (OR/PROCEDURE) PRN, Starting on 05/31/24 at 0930, Until 06/01/24 at 0406, IntraprocedureStart: 05-01-2024 End: 70-53-4930FCUWWULHOSL, X (OR/PROCEDURE) PRN, Starting on Mon05/01/24 at 1042, Until Mon05/01/24 at 1041, Intraprocedurelisinopril 20 mg oral tablet (20 sources)Angiotensin Converting Enzyme InhibitorStart: 03-31-2017 End: 51-73-5516ddjc 1 tablet by mouth once daily in the morningLisinopril 20 mg tablet Discontinued 20 MG PO Every morning September 19, 2022 12:00am June 19, 2024 1:11pmmagnesium oxide 400 mg oral tablet (20 sources)Start: 11-12-2024 End: 41-34-2549udrb 2 tablets by mouth three times dailymagnesium oxide (MAG-OX) 400 mg (241.3 mg magnesium) tablet Take 2 tablets by mouth three times a day. 9am, 3pm, 9pm 180 tablet 5 11/12/2024 11/13/2024 Discontinued (Course of therapy completed)Start: 09-27-2024 End: 81-48-0407jzog 1 tablet by mouth twice dailymagnesium oxide [...] oral tablet (20 sources)beta-Adrenergic BlockerStart: 09-19-2022 End: 40-92-9811ixgq 1 tablet by mouth twice dailyMetoprolol Tartrate 25 mg tablet Discontinued 25 MG PO Twice daily September 19, 2022 12:00am June 02, 2023 11:11amStart: 03-31-2017 End: 05-00-0878elpd 1 tablet by mouth once dailymetoprolol succinate ER (TOPROL XL) 50 mg 24 hr tablet Take 1 tablet by mouth once daily. 90 bonmvh9103/31/2017 04/29/2024 DiscontinuedMetoprolol Tartrate Activemirtazapine 7.5 mg oral tablet (16 sources)Start: 97-51-7463zqnh 1 tablet by mouth once daily at bedtime Mirtazapine (REMERON) 7.5 mg tablet Take 1 tablet by mouth daily at bedtime. 30 tablet 2 59:11 AM EDT 11/12/2024 SuspendedStart: 10-30-2024 End: 06-59-7371ixhp 1 tablet by mouth once daily at bedtimemirtazapine (REMERON) 15 mg tablet Take 1 tablet by mouth daily at bedtime. 90 tablet 10/30/2024 Discontinuedmultivitamin tablet (20 sources)Start: 36-46-3653kkna 1 tablet by mouth once dailymultivitamin tablet Take 1 tablet by mouth once daily. 30 tablet 11 11/12/2024 Suspended Start: 18-17-5426uihy 1 tablet by mouth once dailymultivitamin tablet Take 1 tablet by mouth once daily. 30 tablet 11 11/12/2024 Active End: 37-41-0930yvvl 1 tablet by mouth once dailymultivitamin tablet Take 1 tablet by mouth once daily. 11/12/2024 Discontinuedtake 1 tablet by mouth once dailymultivitamin tablet Take 1 tablet by mouth once daily. Suspendedtake 1 tablet by mouth once dailymultivitamin tablet Take 1 tablet by mouth once daily. Activeomeprazole 40 mg delayed release oral capsule (20 sources)Proton Pump InhibitorStart: 09-21-2022 End: 09-28-2032jkgx 1 capsule by mouth twice dailyOmeprazole 40 mg capsule,delayed release(DR/EC) Discontinued 40 MG PO Twice daily 60 September 212:00am June 02, 2023 11:13amStart: 03-31-2017 End: 16-62-6641nnts 1 capsule by mouth once dailyOmeprazole 40 mg Capsule,Delayed Release(Dr/Ec) Discontinued 40 MG PO Daily September 19, 2022 12:00am September 21, 2022 8:23amondansetron 4 mg oral tablet (20 sources)Serotonin-3 Receptor AntagonistStart: 07-05-2023 End: 42-76-9223cwlb 1 tablet by mouth three times dailyOndansetron Hcl 4 mg tablet Discontinued 4 MG PO Three times daily 90 July 05, 2023 9:32am Jun 1:12pmStart: 07-05-2023 End: 54-17-5188rsqy 1 tablet by mouth once dailyOndansetron Hcl 4 mg tablet Discontinued 4 MG PO Daily July 05, 2023 12:00am July 05, 2023 9:32ampolyethylene glycol 3350 13833 mg powder for oral solution (17 sources)Osmotic LaxativeStart: 79-68-7543ibwyubebpeaf glycol 3350 17 gram packet Take 1 packet by mouth once daily. Dissolve dose in 4 - 8 ounces of liquid and take as directed. 10/31/2024 Suspendedsimethicone 80 mg chewable tablet (9 sources)Start: 80-45-6475gkrl 1 tablet by mouth every six hours as needed simethicone, chewable (MYLICON) 80 mg chewable tablet Take 1 tablet by mouth four times a day as needed. 9am,12n, 6pm, 9pm 120 tablet 2 11/12/2024 Suspended spironolactone 100 mg oral tablet (20 sources)Aldosterone AntagonistStart: 05-04-2024 End: 55-31-7348ctnu 1.5 tablets by mouth once dailyspironolactone (ALDACTONE) 100 mg tablet Take 1.5 tablets by mouth once daily. 45 tablet 2 05/04/2024 09/18/2024 DiscontinuedStart: 43-33-1027nvkz 1 tablet by mouth once daily spironolactone (Aldactone) 50 MG tablet Take 50 mg by mouth Daily 04/29/2024 ActiveStart: 04-29-2024 End: 19-91-6563odbb 2 tablets by mouth once dailyspironolactone (ALDACTONE) 100 mg tablet Take 2 tablets by mouth once daily. 180 tablet 04/29/2024 05/04/2024 DiscontinuedStart: 03-01-2024 End: 94-95-9312utlp 3 tablets by mouth once dailyspironolactone (ALDACTONE) 50 mg tablet Take 150 mg by mouth once daily. 03/01/2024 05/04/2024 Discontinued Start: 41-54-6192bguz 1 tablet by mouth once dailyspironolactone (Aldactone) 100 MG tablet TAKE 1 TABLET BY MOUTH EVERY DAY FOR 30 DAYS 05/10/2023 Active sulfamethoxazole 800 mg / trimethoprim 160 mg oral tablet (20 sources)Dihydrofolate Reductase Inhibitor Antibacterial, Sulfonamide AntimicrobialStart: 09-20-2024 End: 96-33-6712kqbj 1 tablet by mouth oncesulfamethoxazole-trimethoprim (BACTRIM DS) 800-160 mg per tablet Take 1 tablet by mouth every Monday, Monday, and Monday. 15 tablet 2 09/20/2024 11/12/2024 Discontinuedtacrolimus 5 mg oral capsule (20 sources)Calcineurin Inhibitor ImmunosuppressantStart: 10-30-2024 End: 24-03-1293dpif 1 capsule by mouth twice dailytacrolimus IR (PROGRAF) 5 mg capsule Take 1 capsule by mouth two times a day. 10/30/2024 11/12/2024 DiscontinuedStart: 47-44-3938uxil 1 capsule by mouth twice dailytacrolimus IR (PROGRAF) 1 mg capsule Take 4 capsules by mouth two times a day. 09/29/2024 Suspendedzolpidem tartrate 10 mg oral tablet (11 sources)gamma-Aminobutyric Acid-ergic AgonistStart: 02-13-2017 End: 07-84-5931kflh 5 mg by mouth every twenty-four hours as neededzolpidem (AMBIEN) 10 mg tab Take 0.5 tablets by mouth at bedtime as needed. 30 tablet 02/13/2017 04/29/2024 Discontinued Problems Active Problems Problem ClassificationProblemDateDocumented DateEpisodic/ChronicAbdominal pain (4 sources)Lower abdominal pain, unspecified; Translations: [Generalized abdominal pain]Onset: 85-57-5536LtfxatjcPferbgm-related disorders (20 sources)Alcoholic cirrhosis; Translations: [Alcoholic cirrhosis of liver with ascites]Onset: 989730-04-8898UcqwdzjCojtpr; peripheral; and visceral artery aneurysms (20 sources)Aortic root dilatation; Translations: [Thoracic aortic ectasia] Onset: 240700-20-0298OmlsacnAiesosq tract disease (4 sources)Stricture of bile duct; Translations: [Obstruction of bile duct] Onset: 369466-43-0373HhjagebXqmgby of liver and intrahepatic bile duct (20 sources)Liver cell carcinoma; Translations: [Liver cell carcinoma]Onset: 092766-84-9795MeiabvnWaqefvd dysrhythmias (20 sources)Multiple premature ventricular complexes; Translations: [Ventricular premature depolarization]Onset: 657387-55-5596XtnmohyLilkykdc (20 sources)Nuclear senile cataract; Translations: [Age-related nuclear cataract, bilateral]Onset: 185775-98-5711ZrtzlsdKtmecoe kidney disease (20 sources)Chronic kidney disease stage 3A ; Translations: [Stage 3a chronic kidney disease]Onset: 515721-63-3971BuelgbmJvqqdndeilf and hemorrhagic disorders (20 sources)Thrombocytopenic disorder; Translations: [Thrombocytopenia, unspecified]Onset: 435777-76-5490KbtevakGckmggytkcphr of surgical procedures or medical care (20 sources)Pulmonary insufficiency following surgery; Translations: [Other postprocedural complications and disorders of respiratory system, not elsewhere classified]Onset: 09-09-2024 Resolved: 308613-48-8283PtsjmjouBomxlpjpwa disorders (1 source)Unspecified atrioventricular block; Translations: [AV block]Onset: 42-95-1165JyjbtkfCduwvnjk atherosclerosis and other heart disease (1 source)Coronary arteriosclerosis; Translations: [Atherosclerotic heart disease of [place] coronary artery without angina pectoris]58-08-6870Cibkrxu Diabetes mellitus with complications (20 sources)Hyperglycemia due to type 2 diabetes mellitus; Translations: [Type 2 diabetes mellitus with hyperglycemia]Onset: 388094-21-7263LxcleqyMohxkzgs mellitus without complication (20 sources)Type 2 diabetes mellitus without complication; Translations: [Type 2 diabetes mellitus without complications]Onset: 11-17-2022 Resolved: 853692-16-3200LgkbfplAipcjqmx of white blood cells (1 source)Leukopenia; Translations: [Decreased white blood cell count, unspecified]Onset: 865465-45-4064YsuwqnvEzhiamgae of lipid metabolism (20 sources)Dyslipidemia; Translations: [Hyperlipidemia, unspecified]Onset: 168069-52-7649DcdpesvWzjqzrgfqt disorders (20 sources)Recinos's esophagus; 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]Onset: 41-68-7586ZmhzzkkYjbyvxgsf hypertension (20 sources)Benign essential hypertension; Translations: [Essential (primary) hypertension]Onset: 11-26-2012 Resolved: 170860-51-0219NbtdaueCeoe and other crystal arthropathies (20 sources)Primary gout; Translations: [Idiopathic gout, unspecified site] Onset: 370768-97-5725FjrinrdXqhsuhtnh (20 sources)Nonalcoholic steatohepatitis; Translations: [Nonalcoholic steatohepatitis ([place]O)]Onset: 325443-97-8237ZfhoqdfEzqnztsa disorders (20 sources)Immunosuppression; Translations: [Immunodeficiency, unspecified] Onset: 285571-08-4502RyylgjbQpjknomslqa deficiencies (20 sources)Deficiency of macronutrients; Translations: [Unspecified severe protein-calorie malnutrition]Onset: 355225-68-2327NvfwqdkTktquufwpqzx (20 sources)Osteoporosis; Translations: [Age-related osteoporosis without current pathological fracture]Onset: 094442-38-3983WkpztecPjbso circulatory disease (1 source)Low blood pressure; Translations: [Hypotension, unspecified]Onset: 878279-06-3399KombcnvgLsnfm disorders of stomach and duodenum (10 sources)Disorder of function of stomach; Translations: [Disease of stomach and duodenum, unspecified]92-60-1014RbssfewqJmhwi disorders of stomach and duodenum (1 source)Disease of stomach and duodenum, unspecified; Translations: [Dyspepsia and other specified disorders of function of stomach]87-13-4158WwwzzjbbFesqg eye disorders (20 sources)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; 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, left eye]Onset: 500692-12-1868IsmhhomWdvyh fractures (4 sources)Compression fracture of cervical spine; Translations: [Collapsed vertebra, not elsewhere classified, cervical region, subsequent encounter for fracture with delayed healing]30-70-5006HlnjpwwtPnosv gastrointestinal disorders (9 sources)H/O: gastrointestinal disease; Translations: [Personal history of other diseases of the digestive system]EpisodicOther gastrointestinal disorders (6 sources)Flatulence, eructation and gas pain; Translations: [Abdominal distension (gaseous)]EpisodicOther gastrointestinal disorders (6 sources)Loose stool; Translations: [Other fecal abnormalities]EpisodicOther gastrointestinal disorders (1 source)Abdominal distension (gaseous)EpisodicOther gastrointestinal disorders (3 sources)Other ascites; Translations: [Other ascites]Onset: 45-58-5684Onhngcck Other gastrointestinal disorders (7 sources)Intra-abdominal collection; Translations: [Other ascites]Onset: 05-01-2024 Resolved: 643619-60-0786BsvburrkKyghw gastrointestinal disorders (1 source)Dysphagia; Translations: [Dysphagia, unspecified]Onset: 12-26-2024 25-95-1757CauflwdnTduog liver diseases (20 sources)Steatosis of liver; Translations: [Fatty (change of) liver, not elsewhere classified]Onset: 512257-76-3795GbeteosCmosy liver diseases (2 sources)Fatty (change of) liver, not elsewhere classified; Translations: [Metabolic dysfunction-associated steatotic liver disease (MASLD)]Onset: 27-01-3138OuwkmahOypfz liver diseases (20 sources)Cirrhosis of liver; Translations: [Unspecified cirrhosis of liver] Onset: 764392-03-7586MnvssuaIddmj liver diseases (9 sources)Unspecified cirrhosis of liver; Translations: [Cirrhosis of liver without mention of alcohol]Onset: 59-83-1336DfghufkAzgdv liver diseases (10 sources)Pleural effusion associated with hepatic disorder; Translations: [Liver disease, unspecified]01-79-9123YlrdouwTtouw liver diseases (10 sources)Lesion of liver; Translations: [Liver disease, unspecified] 72-15-5981MlrhwokEyjkd liver diseases (20 sources)Portal hypertension; Translations: [Portal hypertension]Onset: 782058-32-1961GjkmsynKrqox liver diseases (4 sources)Liver disease, unspecified; Translations: [Liver disease, unspecified]Onset: 90-72-0410AwaccogQqmgc liver diseases (1 source)Portal etjkkipyv38-32-2109UeslxgfAswfo liver diseases (1 source)Liver transplant status; Translations: [Status post liver transplant (HCC)]Onset: 36-92-6406ViorlebOcuaz liver diseases (1 source)Liver mass; Translations: [Hepatomegaly, not elsewhere classified] 55-17-5624RtaszwanRdokv lower respiratory disease (20 sources)Dyspnea; Translations: [Shortness of breath]Onset: 03-08-2024 59-91-0661HjvkwurbVypkl nervous system disorders (20 sources)Critical illness myopathy; 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] Onset: 320682-37-8969UcoysdyVkfzz nervous system disorders (5 sources)Disorder of brain; Translations: [Encephalopathy, unspecified]Onset: 158791-29-4176TkjvqoyOcbya nervous system disorders (2 sources)Acute postoperative pain; Translations: [Other acute postprocedural pain]13-33-4498EyvxpqwvYosqr nutritional; endocrine; and metabolic disorders (20 sources)Metabolic syndrome X; Translations: [Metabolic syndrome]Onset: 135338-85-7824VnhugbpSlecz nutritional; endocrine; and metabolic disorders (20 sources)Obese class I; Translations: [Class 1 obesity]Onset: 07-26-2018 22-84-6161OpksvdoMuohs screening for suspected conditions (not mental disorders or infectious disease) (3 sources)Abnormal radionuclide vcgv69-90-0824GrvvhkkRmzam skin disorders (1 source)Eruption; Translations: [Rash and other nonspecific skin eruption] Onset: 716962-40-4049HkpvtbxrCykesrgtt (1 source)Cauda equina syndrome; Translations: [Cauda equina syndrome]Onset: 167206-42-2574SqhzavqPmqcpiry; pneumothorax; pulmonary collapse (20 sources)Pleural effusion; Translations: [Pleural effusion, not elsewhere classified]Onset: 836022-90-7587TfoqxkkdNeuvfqtk codes; unclassified (20 sources)Awaiting transplantation of liver; Translations: [Awaiting organ transplant status]65-52-4569YczgqbuBkwrndgm codes; unclassified (1 source)Awaiting transplantation; Translations: [Awaiting organ transplant status]92-82-8403GilzwiaQuwzctxt codes; unclassified (1 source)Awaiting organ transplant status; Translations: [Liver transplant candidate]Onset: 57-42-4355DggsplgKnxknyhd codes; unclassified (6 sources)Edema; Translations: [Localized edema]EpisodicResidual codes; unclassified (6 sources)Early satiety; Translations: [Early satiety]EpisodicResidual codes; unclassified (1 source)Localized edemaEpisodicResidual codes; unclassified (2 sources)Early satietyEpisodicResidual codes; unclassified (4 sources)Altered mental status; Translations: [Altered mental status, unspecified]Onset: 522516-43-9608KalnqfwkCzblxxtzlus failure; insufficiency; arrest (adult) (1 source)Dependence on ventilator; Translations: [Dependence on respirator [ventilator] status]Onset: 878926-17-0033OevpkwyOgkbvyt detachments; defects; vascular occlusion; and retinopathy (20 sources)Epiretinal membrane; 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, bilateral] Onset: 491220-94-6298BhwniiqCgnygzfgy malignancies (1 source)Secondary malignant neoplasm of bone; Translations: [Secondary malignant neoplasm of bone and bone marrow]69-37-9670HwucebsFohbnileo malignancies (2 sources)Secondary malignant neoplastic disease; Translations: [Secondary malignant neoplasm of unspecified site]58-63-3968QafcjpoRlskxjbfobob (1 source)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)07-07-2024 Unclassified (18 sources)Colonoscopy Care CompanionOnset: 405192-27-5150Cgurimcvakpo (1 source)Low back pain, unspecified back pain laterality, unspecified chronicity, unspecified whether sciatica present; Translations: [Low back pain, unspecified back pain laterality, unspecified chronicity, unspecified whether sciatica present]Onset: 06-08-2024 Past or Other Problems Problem ClassificationProblemDateDocumented DateEpisodic/ChronicAbdominal hernia (20 sources)Incisional hernia; Translations: [Incisional hernia without obstruction or gangrene]Onset: 813723-66-8075KaromwkoEbpds and unspecified renal failure (20 sources)Acute kidney failure, unspecified; Translations: [Acute renal failure syndrome]Onset: 12-27-2023 Resolved: 90-21-1081TskpklxfGrola posthemorrhagic anemia (20 sources)Acute posthemorrhagic anemia; Translations: [Acute posthemorrhagic anemia]Onset: 574345-51-2695QisuutulNzjhbwuhuljntm/social admission (20 sources)Drug therapy finding; Translations: [Other specified counseling] Onset: 389985-25-5364MhmpzuzePnbu and rectal conditions (20 sources)Anal fissure; Translations: [Anal fissure, unspecified]Onset: 663652-46-8740KcniwqvoDdzxtmvois pneumonitis; food/vomitus (1 source)Aspiration pneumonia due to regurgitated gastric secretions; Translations: [Pneumonitis due to inhalation of food and vomit]Onset: 12-17-2024 Resolved: 002335-36-7123IiqxwbvvXlkzsbebq infection; unspecified site (20 sources)Infection due to vancomycin resistant enterococcus; Translations: [Streptococcal infection, unspecified site]Onset: 10-20-2024 Resolved: 984217-62-8169MgbnkhaqEcdyayq tract disease (1 source)Calculus of bile duct without cholangitis or cholecystitis without obstruction; Translations: [Biliary stone of transplanted liver (HCC)]Onset: 69-26-6930DfqsnvzkYbylbvz dysrhythmias (2 sources)Sinus bradycardia; Translations: [Bradycardia, unspecified]Onset: 12-11-2024 Resolved: 295507-48-3538OruxcaijJcigliejkzkb of device; implant or graft (20 sources)Complication of transplanted liver; Translations: [Unspecified complication of liver transplant]Onset: 806650-71-1540PjxamkalAkppjlrrvj associated with dizziness or vertigo (20 sources)Dizziness; Translations: [Dizziness and giddiness]Onset: 11-06-2018 58-84-8230UtjrfihdHtilhewlcx and other anemia (20 sources)Anemia due to multiple mechanisms; Translations: [Other specified anemias]Onset: 178343-73-2470RyseznngKeiwibbj mellitus without complication (20 sources)Steroid-induced hyperglycemia; Translations: [Hyperglycemia, unspecified]Onset: 204960-41-4344DymexmckXdlbg and electrolyte disorders (20 sources)Hypo-osmolality and hyponatremia; Translations: [Hyponatremia]Onset: 03-08-2024 Resolved: 49-26-5323HsxlijfsHgmntelobwb (20 sources)Internal hemorrhoids grade II; Translations: [Second degree hemorrhoids]Onset: 070612-94-8540QclfwcoaTipjzkxvicfbn and screening for infectious disease (2 sources)Vaccination needed; Translations: [Encounter for immunization]Onset: 269326-75-9244GrasejbqKfaahssrtb obstruction without hernia (20 sources)Intestinal obstruction co-occurrent and due to decreased peristalsis; Translations: [Ileus, unspecified]Onset: EpisodicMalaise and fatigue (20 sources)Physical deconditioning; Translations: [Other malaise]Onset: 609191-07-7281HsajischYufafb and vomiting (20 sources)Nausea; Translations: [Nausea]Onset: 06-19-4713XadndlthEhhtu aftercare (20 sources)Insulin dose changed; Translations: [intermediate (current) use of insulin]Onset: 819796-87-4812AvdnjthkGlwau and unspecified benign neoplasm (20 sources)History of polyp of colon; Translations: [Personal history of colonic polyps]Onset: 949650-54-0560BpgdapqlDxqug and unspecified benign neoplasm (20 sources)Polyp of colon; Translations: [Polyp of colon]Onset: 08-31-2024 57-72-6221BgrpijqjVckkq connective tissue disease (20 sources)Muscle pain; Translations: [Myalgia, unspecified site]Onset: 305589-95-5223IyrsntkmGmtlk connective tissue disease (20 sources)Olecranon bursitis; Translations: [Olecranon bursitis, unspecified elbow]Onset: 049850-05-7789IiipnkndTfmjh fractures (3 sources)Compression fracture of thoracic spine; Translations: [Wedge compression fracture of T11-T12 vertebra, initial encounter for closed fracture] Onset: 11-30-2024 Resolved: 500571-86-3093LsdivsiqChseu fractures (1 source)Stable burst fracture of T11-T12 vertebra, initial encounter for closed fracture; Translations: [T12 burst fracture (HCC)]Onset: 11-22-2024 EpisodicOther gastrointestinal disorders (3 sources)Diarrhea, unspecified; Translations: [Diarrhea, unspecified]Onset: 20-33-9104FkwpprmpXhvxt gastrointestinal disorders (20 sources)Ascites; Translations: [Other ascites]Onset: EpisodicOther gastrointestinal disorders (2 sources)Swollen abdomen; Translations: [Abdominal distension (gaseous)] 37-49-1283RpjrsjxuPagfo gastrointestinal disorders (20 sources)Diarrhea; Translations: [Diarrhea, unspecified]Onset: 10-08-2024 Resolved: 040320-58-3833AjinlrjhNlbuz gastrointestinal disorders (3 sources)Fecal incontinence with fecal urgency; Translations: [Full incontinence of feces]Onset: 11-27-2024 Resolved: 454327-69-2647EoatwnynBodwo injuries and conditions due to external causes (3 sources)History of fall; Translations: [History of falling]Onset: 11-28-2024 Resolved: 402685-40-2703BwqrfdhsHpgxk injuries and conditions due to external causes (3 sources)At risk for falls ; Translations: [History of falling]Onset: 11-28-2024 Resolved: 882163-06-6213LmthtsxpRglhk liver diseases (20 sources)Hepatic encephalopathy; Translations: [Hepatic encephalopathy (HCC)] Onset: 037089-17-0751YbulcybjOtrrg liver diseases (20 sources)Decompensated cirrhosis of liver; Translations: [Hepatic failure, unspecified without coma]Onset: 227439-50-9973McaswakrRqihh liver diseases (1 source)Hepatic failure, unspecified without coma; Translations: [Decompensated cirrhosis (HCC)]Onset: 60-23-2838CwiouylzGlsah lower respiratory disease (20 sources)Dyspnea on exertion; Translations: [Other forms of dyspnea]Onset: 776147-28-5275HkprdsmxLnayx lower respiratory disease (2 sources)Shortness of breath; Translations: [Shortness of breath]Onset: 50-05-9851QklbwacwUkdkq lower respiratory disease (2 sources)Other forms of dyspnea; Translations: [Other forms of dyspnea]Onset: 15-31-3557FmpzkhjpLpflc lower respiratory disease (20 sources)Chest pain on breathing; Translations: [Chest pain on breathing] Onset: 10-15-2024 Resolved: 532108-37-8518OryxtkxpYabgk lower respiratory disease (1 source)Dyspnea, unspecified; Translations: [Dyspnea, unspecified type]Onset: 77-23-5109HweitszxRlrhz nervous system disorders (20 sources)Postoperative pain ; Translations: [Other acute postprocedural pain] Onset: 09-10-2024 Resolved: 553929-76-9043AormbrccKrsog non-epithelial cancer of skin (20 sources)Basal cell carcinoma of skin; Translations: [Basal cell carcinoma of skin, unspecified]Onset: 182390-10-3117WubnfzrdZuxqv nutritional; endocrine; and metabolic disorders (20 sources)Abnormal weight loss; Translations: [Abnormal weight loss]Onset: 241432-77-4901UarlbjajMosnp screening for suspected conditions (not mental disorders or infectious disease) (8 sources)Patient encounter status; Translations: [Encounter for screening for malignant neoplasm of prostate]Onset: 385069-91-0356ZicilinvKcnhz upper respiratory disease (1 source)Other diseases of bronchus, not elsewhere classified; Translations: [Bronchiolar disease]Onset: 57-14-2397YkhmmrtcIgcfogwullgr fracture (4 sources)Pathological fracture; Translations: [Pathological fracture, other site, initial encounter for fracture]Onset: 761953-48-9884ZktgczumIogbrtcv codes; unclassified (20 sources)Insomnia; Translations: [Insomnia, unspecified]Onset: 11-17-2022 74-66-1679LzclhrkqKfjalbvw codes; unclassified (20 sources)Transient alteration of awareness; Translations: [Transient alteration of awareness]Onset: 623047-67-7401FemxyaelNmoqmmyu codes; unclassified (20 sources)H/O: endocrine disorder; Translations: [Personal history of other specified conditions]Onset: 966776-26-0226JbhulsoiIgtkdvxuyav failure; insufficiency; arrest (adult) (3 sources)Acute respiratory failure; Translations: [Acute respiratory failure with hypoxia]Onset: 11-22-2024 Resolved: 262224-97-4902KmktmqfqJngaduikd and history of mental health and substance abuse codes (20 sources)Tobacco use and exposure - finding; Translations: [Personal history of nicotine dependence]Onset: 666341-64-6716SqmkxcsgJsgcjxwlhas; intervertebral disc disorders; other back problems (20 sources)Low back pain; Translations: [Low back pain, unspecified back pain laterality, unspecified chronicity, unspecified whether sciatica present]Onset: 807715-52-3683BqxsokwkEhvzgvxdjebp (1 source)Patient encounter gfegly93-45-1622Dnsjqepcnrol (1 source)Awaiting transplantation of xeuev32-87-5545Wnqqt infection (20 sources)Cytomegalovirus infection; Translations: [Cytomegaloviral disease, unspecified]Onset: 063239-62-4830Aqsjbzxx Results Test NameValueInterpretationReference RangeFacilityCNPNon 20-64-8652ETYIFrjpgi [facility] HospitalCNPNon 00-09-1754HLXKLkyhlvDxshuoeyk [facility] CNPTOUTREACHon 02-33-7647ZCRUIGZFMQSWKkojxmQzzerzbfo Clinic ClevelandCNPNon 03-35-5807IGBABpjqcdJqekjawou Clinic ClevelandAFP SerPl-mCncon 29-78-7812YUH [Mass/Vol]1.38 ng/mLNormal<9.00W[facility] HospitalComment on above:Order Comment: Specimen Type: BLOOD SPECIMENOrdering Facility: [facility] Address:[address] [place], [place] [address]Result Comment: The Alpha-Fetoprotein test was performed using the [employer] DxI immunoenzymati c assay. Results obtained with different assay methods or kits cannot be used interchangeably.Performed By: #### [id number] ####[facility] LABCLIA [id number] [address] STATES OF AMERICAANES POSTPROC EVALon 42-92-6903NEID POSTPROC EVALNormalClevelUNC Health Rex Holly SpringsANES PRE-OPon 34-76-6765QEXP PRE-OPNormalWyandot Memorial HospitalCNCOon 02-10-2025 CNCOLetter TextNormalCPomerene HospitalComprehensive metabolic 2000 panelon 09-72-5422Ldrfoho [Mass/Vol]3.3 g/dLLow3.9-4.9CPomerene Hospital Comment on above:Order Comment: Specimen Type: BLOOD SPECIMENOrdering Facility: [facility] Address:[address] [place] [address] Performed By: #### 48294-6 ####[facility] LABCLIA [id number] [place] [address] [place] AMERICAALP [Catalytic activity/Vol]168 U/LNedt73-185XixkaprhxHarrison Community Hospital on above:Order Comment: Specimen Type: BLOOD SPECIMENOrdering Facility: [facility] Address:[address] [place], [place] [address]Performed By: #### 88472- 8 ####[facility] LABCLIA [id number] [place] [id number] [place] OF AMERICAALT [Catalytic activity/Vol]23 U/WXdyxff60-56 [facility] on above:Order Comment: Specimen Type: BLOOD SPECIMENOrdering Facility: [facility] Address:[address] [place], [place] [address]Performed By: #### 79555-8 ####[facility] LABCLIA [id number] [place] [id number] [place] OF AMERICAAnion gap [Moles/Vol]12 mmol/LNormal8-15[facility] on above:Order Comment: Specimen Type: BLOOD SPECIMENOrdering Facility: [facility] Address:[address] [place], [place] [address]Performed By: #### 53790- 8 ####[facility] LABCLIA [id number] [place] [id number] [place] OF AMERICAAST [Catalytic activity/Vol]25 U/UPehwel10-25 [facility] on above:Order Comment: Specimen Type: BLOOD SPECIMENOrdering Facility: [facility] Address:[address] [place], [place] [address]Performed By: #### 96659-9 ####[facility] LABCLIA [id number] [place] [address] [place] AMERICABilirubin [Mass/Vol]0.3 mg/dLNormal0.2-1.3CSelect [facility] on above:Order Comment: Specimen Type: BLOOD SPECIMENOrdering Facility: [facility] Address:[address] [place], [place] [address]Performed By: #### 63411- 8 ####[facility] LABCLIA [id number] [place] [address] [place] AMERICACalcium [Mass/Vol]9.5 mg/dLNormal8.5-10.2CSelect [facility] on above:Order Comment: Specimen Type: BLOOD SPECIMENOrdering Facility: [facility] Address:[address] [place], [place] [address]Performed By: #### 98378-6 ####[facility] LABCLIA [id number] [place] [address] [place] AMERICAChloride [Moles/Vol]99 mmol/XJpvgxp12-321PlsmasaqkHarrison Community Hospital on above:Order Comment: Specimen Type: BLOOD SPECIMENOrdering Facility: [facility] Address:[address] [place], [place] [address]Performed By: #### 05597- 8 ####[facility] LABCLIA [id number] [place] [address] [place] AMERICACO2 [Moles/Vol]24 mmol/GLpgvju34-82HtmatsaneHarrison Community Hospital on above:Order Comment: Specimen Type: BLOOD SPECIMENOrdering Facility: [facility] Address:[address] [place], [place] [address]Performed By: #### 30524-4 ####[facility] LABCLIA [id number] [place] [address] [place]I Creatinine [Mass/Vol]0.96 mg/dLNormal0.73-1.22[facility] on above:Order Comment: Specimen Type: BLOOD SPECIMENOrdering Facility: [facility] Address:[address] [place] [address] Performed By: #### 18550-4 ####[facility] LABCLIA [id number] [place] [address] [place] OF AMERICAeGFRcr SerPlBld CKD-EPI 760506 mL/min/1.73m???Normal>=60[facility] on above:Order Comment: Specimen Type: BLOOD SPECIMENOrdering Facility: [facility] Address:[address] [place], [place] [address]Result Comment: Estimated Glomerular Filtration Rate (eGFR) is [...] not accurately reflect actual GFR.Performed By: #### 24896-0 ####[facility] LABCLIA [id number] [place] [address] [place] AMERICAGlucose [Mass/Vol]125 mg/uVXyhx47-14FtrxbhhnxHarrison Community Hospital on above:Order Comment: Specimen Type: BLOOD SPECIMENOrdering Facility: [facility] Address:[address] [place], [place] [address]Result Comment: The [place] Diabetes Association (ADA) provides guidance for cutoff [...] Standards of Medical Care in Diabetes 2016, [place] [employer]. Diabetes Care. 2016.39(Suppl 1).Performed By: #### 43013-9 ####[facility] LABCLIA [id number] [place] [address] [place] AMERICAPotassium [Moles/Vol]6.0 mmol/LHigh3.7-5.1 [facility] on above:Order Comment: Specimen Type: BLOOD SPECIMENOrdering Facility: [facility] Address:[address] [place], [place] [address]Performed By: #### 44975-9 ####[facility] LABCLIA [id number] [place] [address] [place] AMERICAProtein [Mass/Vol]7.0 g/dLNormal6.3-8.0[facility] on above:Order Comment: Specimen Type: BLOOD SPECIMENOrdering Facility: [facility] Address:[address] [place], [place] [address]Performed By: #### 27306- 8 ####[facility] LABCLIA [id number] [place] [address] [place] AMERICASodium [Moles/Vol]135 mmol/VRxi313-835QfmkswxzbHarrison Community Hospital on above:Order Comment: Specimen Type: BLOOD SPECIMENOrdering Facility: [facility] Address:[address] [place], [place] [address]Performed By: #### 60099-1 ####[facility] LABCLIA [id number] [place] [id number] [place] OF AMERICAUrea nitrogen [Mass/Vol]36 mg/dLHigh9-24[facility] on above: Order Comment: Specimen Type: BLOOD SPECIMENOrdering Facility: [facility] Address:[address] [place], [place] [address]Performed By: #### 55257- 8 ####[facility] LABCLIA [id number] [place] [id number] [place] OF AMERICAERCPon 14-75-2953CICOPdweeeQkprpunnc Clinic ClevelandHISWILLIS[facility] PHYSICALon 79-54-9960PPHWUHO PHYSICALNoBarney Children's Medical CenterNURSING PROGon 60-03-5149YUIZAYP PROGNormalWyandot Memorial HospitalPT panel Coag (PPP)on 44-99-2800RVL Coag (PPP) [Relative time]1.0 {INR}Normal 0.9-1.3CSelect [facility] on above:Order Comment: Specimen Type: BLOOD SPECIMENOrdering Facility: [facility] Address:[address] [place], [place] [address]Result Comment: Vitamin K Antagonist (VKA) Therapeutic Range: INR 2 to 3 (Target INR of 2.5)Note: For patients treated with VKA drugs, such as warfarin, the [place] [employer] 2012 Guideline recommends [...] al. Chest 2012, 141:7S-47SNishimura RA, et al. [facility] 2017, 70: 252-289Performed By: #### 00638-3 ####[facility] LABCLIA [id number] [place] [id number] [place] OF [facility]HO[facility] REGIONAL MEDICAL CENTERPT Coag (PPP) [Time]10.9 sNormal9.7-13.0[facility] on above:Order Comment: Specimen Type: BLOOD SPECIMENOrdering Facility: [facility] Address:[address] [place] [id number] By: #### 93626- 0 ####[facility] LABCLIA [id number] [address] STATES OF AMERICACNCOon 63-35-3104EDHHDnnqev TextNormalCPomerene HospitalCB W Auto Differential panel (Bld)on 98-25-1744Efxqxhbqu (Bld) [#/Vol]0.04 10*3/uLNormal<0.11CSelect [facility] on above:Order Comment: Specimen Type: BLOOD SPECIMENOrdering Facility: [facility] Address: [address] [place], [place] [address]Performed By: #### 38113-2 ####[facility] LABORATORYCLIA [id number] [place] [address] [place] AMERICABasophils/100 WBC (Bld)0.3 %NormalHarrison Community Hospital on above:Order Comment: Specimen Type: BLOOD SPECIMENOrdering Facility: [facility] Address: [address] [place], [place] [address]Performed By: #### 80071-3 ####[facility] LABORATORYCLIA [id number] [place] [address] [place] AMERICADifferential cell count method Nom (Bld)AutoNormalCSelect Medical Special[facility] on above:Order Comment: Specimen Type: BLOOD SPECIMENOrdering Facility: [facility] Address: [address] [place], [place] [address]Performed By: #### 90128-8 ####[facility] LABORATORYCLIA [id number] [place] [address] [place] Eosinophils (Bld) [#/Vol]0.54 10*3/uLHigh<0.46[facility] on above:Order Comment: Specimen Type: BLOOD SPECIMENOrdering Facility: [facility] Address: [address] [place] [address] Performed By: #### 44296-8 ####[facility] LABORATORYCLIA [id number] [place] [id number] [place] AMERICAEosinophils/100 WBC (Bld)3.7 % [facility] on above:Order Comment: Specimen Type: BLOOD SPECIMENOrdering Facility: [facility] Address: [address] [place], [place] [address]Performed By: #### 76800-7 ####[facility] LABORATORYCLIA [id number] [place] [address] [place] AMERICAErythrocyte distribution width (RBC) [Ratio]20.1 %High11.5-15.0 [facility] on above:Order Comment: Specimen Type: BLOOD SPECIMENOrdering Facility: [facility] Address: [address] [place], [place] [address]Performed By: #### 57060-8 ####[facility] LABORATORYCLIA [id number] [place] [address] [place] AMERICAHematocrit (Bld) [Volume fraction]25.2 %Low39.0-51.0[facility] on above:Order Comment: Specimen Type: BLOOD SPECIMENOrdering Facility: [facility] Address: [address] [place], [place] [address]Performed By: #### 53231-1 ####[facility] LABORATORYCLIA [id number] [place] [address] [place] Hemoglobin (Bld) [Mass/Vol]7.9 g/dLLow13.0-17.0[facility] on above:Order Comment: Specimen Type: BLOOD SPECIMENOrdering Facility: [facility] Address: [address] [place] [address] Performed By: #### 79767-2 ####[facility] LABORATORYCLIA [id number] [place] [address] [place] AMERICAImmature granulocytes (Bld) [#/Vol]0.39 10*3/uLHigh<0.10[facility] on above:Order Comment: Specimen Type: BLOOD SPECIMENOrdering Facility: [facility] Address: [address] [place], [place] [address]Performed By: #### 11219-6 ####[facility] LABORATORYCLIA [id number] [place] [address] [place] AMERICAImmature granulocytes/100 WBC (Bld)2.7 %Normal [facility] on above:Order Comment: Specimen Type: BLOOD SPECIMENOrdering Facility: [facility] Address: [address] [place], [place] [address]Performed By: #### 90820-0 ####[facility] LABORATORYCLIA [id number] [place] [address] [place] COSHOCT[facility] REGIONAL MEDICAL CENTERLymphocytes (Bld) [#/Vol]1.01 10*3/uLNormal1.00-4.00[facility] on above:Order Comment: Specimen Type: BLOOD SPECIMENOrdering Facility: [facility] Address: [address] [place], [place] [address]Performed By: #### 83304-9 ####[facility] LABORATORYCLIA [id number] [place] [address] [place] Lymphocytes/100 WBC (Bld)7.0 %NormalHarrison Community Hospital on above: Order Comment: Specimen Type: BLOOD SPECIMENOrdering Facility: [facility] Address: [address] [place], [place] [address]Performed By: #### 37660-5 ####[facility] LABORATORYCLIA [id number] [address]ETMCH (RBC) [Entitic mass]32.8 iePokbnh59.0-34.0[facility] on above:Order Comment: Specimen Type: BLOOD SPECIMENOrdering Facility: [facility] Address: [address] [place], [place] [address]Performed By: #### 39895-0 ####[facility] LABORATORYCLIA [id number] [place] [id number] [place] [facility] COSHO[facility] REGIONAL MEDICAL CENTERMCHC (RBC) [Mass/Vol]31.3 g/cBPooiot83.5-36.0 [facility] on above:Order Comment: Specimen Type: BLOOD SPECIMENOrdering Facility: [facility] Address: [address] [place], [place] [address]Performed By: #### 11133-6 ####[facility] LABORATORYCLIA [id number] [address] (RBC) [Entitic vol]104.6 iBZbtn12.0-100.0[facility] Hospitalveland Comment on above:Order Comment: Specimen Type: BLOOD SPECIMENOrdering Facility: [facility] Address: [address] [place], [place] [address]Performed By: #### 42603-7 ####[facility] LABORATORYCLIA [id number] [place] [address] [place] AMERICAMonocytes (Bld) [#/Vol] 0.73 10*3/uLNormal<0.87Wyandot Memorial HospitalCombronson lakeview hospital on above:Order Comment: Specimen Type: BLOOD SPECIMENOrdering Facility: [facility] Address: [address] [place], [place] [address]Performed By: #### 76202-7 ####[facility] LABORATORYCLIA [id number] [place] [id number] [place] AMERICAMonocytes/100 WBC (Bld)5.0 %NormalWyandot Memorial HospitalComment on above:Order Comment: Specimen Type: BLOOD SPECIMENOrdering Facility: [facility] Address: [address] [place], [place] [address]Performed By: #### 27329-6 ####[facility] LABORATORYCLIA [id number] [place] [id number] [place] AMERICANeutrophils (Bld) [#/Vol]11.82 10*3/uLHigh1.45-7.50Wyandot Memorial HospitalCombronson lakeview hospital on above:Order Comment: Specimen Type: BLOOD SPECIMENOrdering Facility: [facility] Address: [address] [place], [place] [address]Performed By: #### 68334-6 ####[facility] LABORATORYCLIA [id number] [place] [address] [place] Neutrophils/100 WBC (Bld)81.3 %NormalHarrison Community Hospital on above: Order Comment: Specimen Type: BLOOD SPECIMENOrdering Facility: [facility] Address: [address] [place], [place] [address]Performed By: #### 58140-6 ####[facility] LABORATORYCLIA [id number] [place] [id number] [place] AMERICANucleated RBC (Bld) [#/Vol] 10*3/uLNormal<0.01Wyandot Memorial HospitalCombronson lakeview hospital on above:Order Comment: Specimen Type: BLOOD SPECIMENOrdering Facility: [facility] Address: [address] [place], [place] [address]Performed By: #### 25145-3 ####[facility] LABORATORYCLIA [id number] [place] [address] [place] AMERICANucleated RBC/100 WBC (Bld) [Ratio]0.0 /100 WBCNormalCPomerene HospitalCombronson lakeview hospital on above:Order Comment: Specimen Type: BLOOD SPECIMENOrdering Facility: [facility] Ad dress: [address] [place], [place] [address]Performed By: #### 36932-1 ####[facility] LABORATORYCLIA [id number] [place] [id number] [place] AMERICAPlatelet mean volume (Bld) [Entitic vol]10.4 fLNormal 9.0-12.7CSelect [facility] on above:Order Comment: Specimen Type: BLOOD SPECIMENOrdering Facility: [facility] Address: [address] [place], [place] [address]Performed By: #### 41597-0 ####[facility] LABORATORYCLIA [id number] [place] [address] [place] AMERICAPlatelets (Bld) [#/Vol]128 10*3/zRNby741-331MxcebugjeWyandot Memorial Hospital Comment on above:Order Comment: Specimen Type: BLOOD SPECIMENOrdering Facility: [facility] Address: [address] [place] [address]Wegfagjsb By: #### 84120-8 ####[facility] LABORATORYCLIA [id number] [place] [id number] [place] AMERICARBC (Bld) [#/Vol]2.41 10*6/uLLow4.20-6.00[facility] on above:Order Comment: Specimen Type: BLOOD SPECIMENOrdering Facility: [facility] Address: [address] [place], [place] [address]Performed By: #### 99731-9 ####[facility]ONC[facility] LABORATORYCLIA [id number] [place] [address] [place] AMERICAWBC (Bld) [#/Vol]14.53 10*3/uLHigh3.70-11.00 [facility] on above:Order Comment: Specimen Type: BLOOD SPECIMENOrdering Facility: [facility] Address: [address] [place], [place] [address]Performed By: #### 90525-1 ####[facility]ONCLEVEL[facility] LABORATORYCLIA [id number] [place] [address] [place] AMERICACRP SerPl-mCncon 50-07-3291WPI [Mass/Vol]11.0 mg/dLHigh<0.9CSelect [facility] on above:Order Comment: Specimen Type: BLOOD SPECIMENOrdering Facility: [facility] Address: [address] [place], [place] [address]Performed By: #### 1988-5 ####[facility]ONCLEVEL[facility] LABORATORYCLIA [id number] [place] [address] [place] AMERICACYTOMEGALOVIRUS (CMV) DNA, QUANTITATIVE PCR, [facility] MARYVALEon 22-31-9972RSK DNA JESSICA+probe Qn (P)Not detectedNormalNot DetectedHarrison Community Hospital on above:Order Comment: Specimen Type: BLOOD SPECIMENOrdering Facility: [facility] Address: [address] [place] [address] Performed By: #### CMVQNT ####[facility] LABCLIA [id number] [place] [address] [place] AMERICAComprehensive metabolic 2000 panelon 42-24-9290Drizjqt [Mass/Vol]2.8 g/dLLow3.9-4.9CSelect [facility] on above:Order Comment: Specimen Type: BLOOD SPECIMENOrdering Facility: [facility] Address: [address] [place], [place] [address]Performed By: #### 97317-8 ####[facility]ONCLEVEL[facility] LABORATORYCLIA [id number] [place] [address] [place] AMERICAALP [Catalytic activity/Vol]161 U/GHacx98-087HkmwolxxpHarrison Community Hospital on above:Order Comment: Specimen Type: BLOOD SPECIMENOrdering Facility: [facility] Address: [address] [place] [address] Performed By: #### 68136-1 ####[facility] LABORATORYCLIA [id number] [place] [address] [place]ALT [Catalytic activity/Vol]20 U/XIlsbrm89-04EfwoewjfsHarrison Community Hospital on above:Order Comment: Specimen Type: BLOOD SPECIMENOrdering Facility: [facility] Ad dress: [address] [place], [place] [address]Performed By: #### 14475-8 ####[facility] LABORATORYCLIA [id number] [place] [id number] [place] AMERICAAnion gap [Moles/Vol]12 mmol/LNormal8-15[facility] on above:Order Comment: Specimen Type: BLOOD SPECIMENOrdering Facility: [facility] Address: [address] [place], [place] [address]Performed By: #### 32463-5 ####[facility] LABORATORYCLIA [id number] [place] [id number] [place] AMERICAAST [Catalytic activity/Vol]26 U/QZabnuv65-73BvckjkmcfHarrison Community Hospital on above:Order Comment: Specimen Type: BLOOD SPECIMENOrdering Facility: [facility] Address: [address] [place] [address] Performed By: #### 19390-4 ####[facility] LABORATORYCLIA [id number] [place] [address] [place] AMERICABilirubin [Mass/Vol]0.2 mg/dL Normal0.2-1.3CSelect [facility] on above:Order Comment: Specimen Type: BLOOD SPECIMENOrdering Facility: [facility] Ad dress: [address] [place], [place] [address]Performed By: #### 75072-8 ####[facility] LABORATORYCLIA [id number] [place] [address] [place] AMERICACalcium [Mass/Vol]8.9 mg/dLNormal8.5-10.2CSelect [facility] on above:Order Comment: Specimen Type: BLOOD SPECIMENOrdering Facility: [facility] Address: [address] [place], [place] [address]Performed By: #### 95391-2 ####[facility] LABORATORYCLIA [id number] [place] [address] [place] AMERICAChloride [Moles/Vol]97 mmol/DMbb01-054QubdffyqxHarrison Community Hospital on above:Order Comment: Specimen Type: BLOOD SPECIMENOrdering Facility: [facility] Address: [address] [place] [address] Performed By: #### 71370-7 ####[facility] LABORATORYCLIA [id number] [place] [address] [place] AMERICACO2 [Moles/Vol]22 mmol/LNormal 22-30[facility] on above:Order Comment: Specimen Type: BLOOD SPECIMENOrdering Facility: [facility] Address: [address] [place], [place] [address]Performed By: #### 06219-4 ####[facility] LABORATORYCLIA [id number] [place] [address] [place] AMERICACreatinine [Mass/Vol]1.14 mg/dLNormal0.73-1.22[facility] on above:Order Comment: Specimen Type: BLOOD SPECIMENOrdering Facility: [facility] Address: [address] [place], [place] [address]Performed By: #### 93735-0 ####[facility] LABORATORYCLIA [id number] [place] [id number] [place] AMERICAeGFRcr SerPlBld CKD-EPI 986574 mL/min/1.73m???Normal>=60[facility] Comment on above:Order Comment: Specimen Type: BLOOD SPECIMENOrdering Facility: [facility] Address: [address] [place], [place] [address]Result Comment: Estimated Glomerular Filtration Rate (eGFR) is [...] accurately reflect actual GFR. Performed By: #### 08579-6 ####[facility] LABORATORYCLIA [id number] [place] [id number] [place] AMERICAGlucose [Mass/Vol]99 mg/dL Dtzdjn08-29JalbgklpsHarrison Community Hospital on above:Order Comment: Specimen Type: BLOOD SPECIMENOrdering Facility: [facility] Ad dress: [address] [place], [place] [address]Result Comment: The [place] [employer] (ADA) provides guidance for cutoff [...] Standards of Medical Care in Diabetes 2016, [place] [employer]. Diabetes Care. 2016.39(Suppl 1). Performed By: #### 87246-2 ####[facility] LABORATORYCLIA [id number] [place] [address] [place] AMERICAPotassium [Moles/Vol]5.5 mmol/LHigh3.7-5.1CSelect [facility] on above:Order Comment: Specimen Type: BLOOD SPECIMENOrdering Facility: [facility] Address: [address] [place], [place] [address]Performed By: #### 33755-5 ####[facility] LABORATORYCLIA [id number] [place] [address] [place] AMERICAProtein [Mass/Vol]6.1 g/dLLow6.3-8.0[facility] on above:Order Comment: Specimen Type: BLOOD SPECIMENOrdering Facility: [facility] Address: [address] [place], [place] [address]Performed By: #### 40808-5 ####[facility] LABORATORYCLIA [id number] [place] [address] [place] AMERICASodium [Moles/Vol]131 mmol/IJmn903-868IoouwarfyHarrison Community Hospital on above:Order Comment: Specimen Type: BLOOD SPECIMENOrdering Facility: [facility] Address: [address] [place] [address] Performed By: #### 12811-4 ####[facility] LABORATORYCLIA [id number] [place] [address] [place] AMERICAUrea nitrogen [Mass/Vol]53 mg/dLHigh9-24[facility] on above:Order Comment: Specimen Type: BLOOD SPECIMENOrdering Facility: [facility] Ad dress: [address] [place], [place] [address]Performed By: #### 16644-7 ####[facility] LABORATORYCLIA [id number] [place] [address] [place] AMERICAGGT SerPl-cCncon 34-66-5731Kukdh glutamyl transferase [Catalytic activity/Vol]91 U/ODrpb65-70XnoqdbvnnHarrison Community Hospital on above:Order Comment: Specimen Type: BLOOD SPECIMENOrdering Facility: [facility] Address: [address] [place] [address] Performed By: #### 2324-2 ####[facility] LABCLIA [id number] [place] [address] [place] AMERICAMagnesium SerPl-mCncon 32-00-6188Nrwylfxqd [Mass/Vol]1.9 mg/dLNormal1.7-2.3CPomerene Hospital Comment on above:Order Comment: Specimen Type: BLOOD SPECIMENOrdering Facility: [facility] Address: [address] [place], [place] [address]Performed By: #### 35098-5 ####[facility] LABORATORYCLIA [id number] [place] [address] [place] AMERICANT-proBNP SerPl-mCncon 17-11-8314Iftrabwmpro peptide.B prohormone N-Terminal [Mass/Vol]440 pg/mLHigh <125[facility] on above:Order Comment: Specimen Type: BLOOD SPECIMENOrdering Facility: [facility] Address: [address] [place], [place] [address]Performed By: #### 95784-8 ####[facility] LABORATORYCLIA [id number] [place] [address] [place] OF AMERICANURSING PROGon 38-63-3327HSWCHXI PROGNormalWyandot Memorial Hospital Phosphate SerPl-mCncon 64-97-5961Zbsbsqubc [Mass/Vol]5.1 mg/dLHigh2.7-4.8 [facility] on above:Order Comment: Specimen Type: BLOOD SPECIMENOrdering Facility: [facility] Address: [address] [place], [place] [address]Performed By: #### 2777-1 ####[facility] LABORATORYCLIA [id number] [place] [address] [place] AMERICATacrolimus Bld-mCncon 10-82-8609Trasxqfqvl (Bld) [Mass/Vol]6.3 ng/mL Normal5.0-20.0[facility] on above:Order Comment: Specimen Type: BLOOD SPECIMENOrdering Facility: [facility] Ad dress: [address] [place], [place] [address]Result Comment: Individualized target levels for a given [...] situation. Test performed by chemiluminescent immunoassay using PointniThe New Daily i.Performed By: #### 67535-4 ####[facility] MAIN LABCLIA [id number] [place] [address] [place] CBC W Auto Differential panel (Bld)on 89-08-9803Qbnunvahc (Bld) [#/Vol]0.07 10*3/uLNormal<0.11CSelect [facility] on above:Order Comment: Specimen Type: BLOOD SPECIMENOrdering Facility: [facility] Address: [address] [place], [place] [address]Performed By: #### 41609-6 ####[facility] LABORATORYCLIA [id number] [place] [address] [place] AMERICABasophils/100 WBC (Bld)0.4 %[facility] on above:Order Comment: Specimen Type: BLOOD SPECIMENOrdering Facility: [facility] Address: [address] [place], [place] [address]Performed By: #### 60445-1 ####[facility] LABORATORYCLIA [id number] [place] [address] [place] AMERICADifferential cell count method Nom (Bld)AutoNormalClevelUC Medical Center on above:Order Comment: Specimen Type: BLOOD SPECIMENOrdering Facility: [facility] Address: [address] [place], [place] [address]Performed By: #### 75692-9 ####[facility] LABORATORYCLIA [id number] [place] [address] [place] Eosinophils (Bld) [#/Vol]0.31 10*3/uLNormal<0.46[facility] Comment on above:Order Comment: Specimen Type: BLOOD SPECIMENOrdering Facility: [facility] Address: [address] [place], [place] [address]Performed By: #### 93449-8 ####[facility] LABORATORYCLIA [id number] [place] [address] [place] AMERICAEosinophils/100 WBC (Bld)1.6 %[facility] on above:Order Comment: Specimen Type: BLOOD SPECIMENOrdering Facility: [facility] Address: [address] [place], [place] [address]Performed By: #### 89137-5 ####[facility] LABORATORYCLIA [id number] [place] [address] [place] AMERICAErythrocyte distribution width (RBC) [Ratio] 20.2 %High11.5-15.0[facility] on above:Order Comment: Specimen Type: BLOOD SPECIMENOrdering Facility: [facility] Address: [address] [place], [place] [address]Performed By: #### 70826-5 ####[facility] LABORATORYCLIA [id number] [place] [address] [place] AMERICAHematocrit (Bld) [Volume fraction]24.9 %Low 39.0-51.0[facility] on above:Order Comment: Specimen Type: BLOOD SPECIMENOrdering Facility: [facility] Ad dress: [address] [place], [place] [address]Performed By: #### 48282-5 ####[facility] LABORATORYCLIA [id number] [place] [address] [place] AMERICAHemoglobin (Bld) [Mass/Vol]7.7 g/dLLow13.0-17.0[facility] on above:Order Comment: Specimen Type: BLOOD SPECIMENOrdering Facility: [facility] Address: [address] [place], [place] [address]Performed By: #### 46013-1 ####[facility] LABORATORYCLIA [id number] [place] [id number] [place] OF AMERICAImmature granulocytes (Bld) [#/Vol]0.83 10*3/uLHigh<0.10[facility] on above:Order Comment: Specimen Type: BLOOD SPECIMENOrdering Facility: [facility] Address: [address] [place], [place] [address]Performed By: #### 88155-5 ####[facility] LABORATORYCLIA [id number] [place] [address] [place] Immature granulocytes/100 WBC (Bld)4.2 %NormalHarrison Community Hospital on above:Order Comment: Specimen Type: BLOOD SPECIMENOrdering Facility: [facility] Address: [address] [place] [address] Performed By: #### 39231-1 ####[facility] LABORATORYCLIA [id number] [place] [address] [place] AMERICALymphocytes (Bld) [#/Vol]0.83 10*3/uLLow1.00-4.00[facility] on above:Order Comment: Specimen Type: BLOOD SPECIMENOrdering Facility: [facility] Address: [address] [place], [place] [address]Performed By: #### 37363-6 ####[facility] LABORATORYCLIA [id number] [place] [address] [place] AMERICALymphocytes/100 WBC (Bld)4.2 %NormalHarrison Community Hospital on above:Order Comment: Specimen Type: BLOOD SPECIMENOrdering Facility: [facility] Address: [address] [place], [place] [address]Performed By: #### 63490-0 ####[facility] LABORATORYCLIA [id number] [place] [id number] [facility] (RBC) [Entitic mass]32.2 dkSgxrgt27.0-34.0[facility] Comment on above:Order Comment: Specimen Type: BLOOD SPECIMENOrdering Facility: [facility] Address: [address] [place], [place] [address]Performed By: #### 91883-6 ####[facility] LABORATORYCLIA [id number] [place] [id number] [facility] (RBC) [Mass/Vol] 30.9 g/nZSrkpdt74.5-36.0[facility] on above:Order Comment: Specimen Type: BLOOD SPECIMENOrdering Facility: [facility] Address: [address] [place], [place] [address]Performed By: #### 11001-9 ####[facility] LABORATORYCLIA [id number] [place] [address] [place] AMERICAMCV (RBC) [Entitic vol]104.2 lMQwvm68.0-100.0 [facility] on above:Order Comment: Specimen Type: BLOOD SPECIMENOrdering Facility: [facility] Address: [address] [place], [place] [address]Performed By: #### 45077-1 ####[facility] LABORATORYCLIA [id number] [place] [address] [place] AMERICAMonocytes (Bld) [#/Vol]0.92 10*3/uLHigh<0.87[facility] Comment on above:Order Comment: Specimen Type: BLOOD SPECIMENOrdering Facility: [facility] Address: [address] [place], [place] [address]Performed By: #### 30333-5 ####[facility] LABORATORYCLIA [id number] [place] [id number] [place] AMERICAMonocytes/100 WBC (Bld) 4.7 %NormalHarrison Community Hospital on above:Order Comment: Specimen Type: BLOOD SPECIMENOrdering Facility: [facility] Ad dress: [address] [place], [place] [address]Performed By: #### 27149-4 ####[facility] LABORATORYCLIA [id number] [place] [address] [place] AMERICANeutrophils (Bld) [#/Vol]16.62 10*3/uLHigh1.45-7.50 [facility] on above:Order Comment: Specimen Type: BLOOD SPECIMENOrdering Facility: [facility] Address: [address] [place], [place] [address]Performed By: #### 33317-3 ####[facility] LABORATORYCLIA [id number] [place] [id number] [place] AMERICANeutrophils/100 WBC (Bld)84.9 %NormalHarrison Community Hospital on above:Order Comment: Specimen Type: BLOOD SPECIMENOrdering Facility: [facility] Address: [address] [place] [address] Performed By: #### 20412-1 ####[facility] LABORATORYCLIA [id number] [place] [id number] [place] AMERICANucleated RBC (Bld) [#/Vol] 10*3/uLNormal<0.01[facility] on above:Order Comment: Specimen Type: BLOOD SPECIMENOrdering Facility: [facility] Address: [address] [place], [place] [address]Performed By: #### 04829-2 ####[facility] LABORATORYCLIA [id number] [place] [address] [place] AMERICANucleated RBC/100 WBC (Bld) [Ratio]0.0 /100 WBCNormalCSelect Medical [facility] on above:Order Comment: Specimen Type: BLOOD SPECIMENOrdering Facility: [facility] Ad dress: [address] [place], [place] [address]Performed By: #### 94987-7 ####[facility] LABORATORYCLIA [id number] [place] [address] [place] AMERICAPlatelet mean volume (Bld) [Entitic vol]10.2 fLNormal 9.0-12.7CSelect [facility] on above:Order Comment: Specimen Type: BLOOD SPECIMENOrdering Facility: [facility] Address: [address] [place], [place] [address]Performed By: #### 22627-9 ####[facility] LABORATORYCLIA [id number] [place] [address] [place] AMERICAPlatelets (Bld) [#/Vol]177 10*3/cLLjdcli624-302EvcalyjsuWyandot Memorial Hospital Comment on above:Order Comment: Specimen Type: BLOOD SPECIMENOrdering Facility: [facility] Address: [address] [place], [place] [address]Performed By: #### 12599-9 ####[facility] LABORATORYCLIA [id number] [place] [id number] [place] AMERICARBC (Bld) [#/Vol]2.39 10*6/uLLow4.20-6.00[facility] on above:Order Comment: Specimen Type: BLOOD SPECIMENOrdering Facility: [facility] Address: [address] [place] [address]Deesnxlbg By: #### 55533-0 ####[facility] LABORATORYCLIA [id number] [place] [address] [place] OF AMERICAWBC (Bld) [#/Vol]19.58 10*3/uLHigh3.70-11.00 [facility] on above:Order Comment: Specimen Type: BLOOD SPECIMENOrdering Facility: [facility] Address: [address] [place], [place] [address]Performed By: #### 93513-1 ####[facility] LABORATORYCLIA [id number] [place] [id number] [place] OF AMERICACRP SerPl-mCnc 02-68-0127LIV [Mass/Vol]9.7 mg/dLHigh<0.9CSelect [facility] on above:Order Comment: Specimen Type: BLOOD SPECIMENOrdering Facility: [facility] Address: [address] [place], [place] [address]Performed By: #### 1988-5 ####[facility] LABORATORYCLIA [id number] [place] [id number] [place] AMERICAComprehensive metabolic 2000 panelon 44-37-4417Ortuvio [Mass/Vol]2.8 g/dLLow3.9-4.9CSelect [facility] on above:Order Comment: Specimen Type: BLOOD SPECIMENOrdering Facility: [facility] Ad dress: [address] [place] [address] 173[address]Jytwzpeta By: #### 76451-5 ####[facility] LABORATORYCLIA [id number] [place] [address] [place] AMERICAALP [Catalytic activity/Vol]173 U/ZDquw92-051LnrzksqcwHarrison Community Hospital on above:Order Comment: Specimen Type: BLOOD SPECIMENOrdering Facility: [facility] Address: [address] [place] [address] 51273Xwllrdxjs By: #### 25874-2 ####[facility] LABORATORYCLIA [id number] [place] [address] [place] AMERICAALT [Catalytic activity/Vol]20 U/DNabybr62-11MtlsxtmapWyandot Memorial Hospital Comment on above:Order Comment: Specimen Type: BLOOD SPECIMENOrdering Facility: [facility] Address: [address] [place] [address] 16663Vyiouriur By: #### 34475-9 ####[facility] LABORATORYCLIA [id number] [place] [address] [place] AMERICAAnion gap [Moles/Vol]10 mmol/LNormal8-15[facility] Memorial HospitalComment on above:Order Comment: Specimen Type: BLOOD SPECIMENOrdering Facility: [facility] Address: [address] [place] [address] 12107Pcubckvlg By: #### 63185-9 ####[facility] LABORATORYCLIA [id number] [place] [address] [place] AMERICAAST [Catalytic activity/Vol]24 U/AHygzqx31-06 [facility] HospitalComment on above:Order Comment: Specimen Type: BLOOD SPECIMENOrdering Facility: [facility] Address: [address] [place] [address] 28860Xysqtsrzt By: #### 80298-1 ####[facility] LABORATORYCLIA [id number] [place] [address] [place] AMERICABilirubin [Mass/Vol]0.2 mg/dLNormal0.2-1.3CPomerene Hospital Comment on above:Order Comment: Specimen Type: BLOOD SPECIMENOrdering Facility: [facility] Address: [address] [place] [address] 79[address]Vakqvzrqb By: #### 73985-6 ####[facility] LABORATORYCLIA [id number] [place] [address] [place] AMERICACalcium [Mass/Vol]8.9 mg/dLNormal8.5-10.2CPomerene HospitalCombronson lakeview hospital on above:Order Comment: Specimen Type: BLOOD SPECIMENOrdering Facility: [facility] Address: [address] [place] [address] 94133Scgplhufz By: #### 33365-8 ####DEONROLF LABORATORYCLIA [id number] [place] [address] [place] AMERICAChloride [Moles/Vol]97 mmol/VIdl11-368 [facility] on above:Order Comment: Specimen Type: BLOOD SPECIMENOrdering Facility: [facility] Address: [address] [place], [place] [address]Performed By: #### 06704-6 ####[facility] LABORATORYCLIA [id number] [place] [address] [place] AMERICACO2 [Moles/Vol]24 mmol/IIyshds26-72NzwmsoklzHarrison Community Hospital on above:Order Comment: Specimen Type: BLOOD SPECIMENOrdering Facility: [facility] Address: [address] [place] [address] Performed By: #### 43821-8 ####[facility] LABORATORYCLIA [id number] [place] [address] [place] AMERICACreatinine [Mass/Vol]0.98 mg/dLNormal0.73-1.22[facility] on above:Order Comment: Specimen Type: BLOOD SPECIMENOrdering Facility: [facility] Address: [address] [place], [place] [address]Performed By: #### 84165-0 ####[facility] LABORATORYCLIA [id number] [place] [address] [place] AMERICAeGFRcr SerPlBld CKD-EPI 519198 mL/min/1.73m??? Normal>=60[facility] on above:Order Comment: Specimen Type: BLOOD SPECIMENOrdering Facility: [facility] Ad dress: [address] [place], [place] [address]Result Comment: Estimated Glomerular Filtration Rate (eGFR) is [...] not accurately reflect actual GFR.Performed By: #### 45796-8 ####[facility] LABORATORYCLIA [id number] [place] [address] [place] AMERICAGlucose [Mass/Vol]108 mg/oJLjcy07-45OtwuqzxidHarrison Community Hospital on above:Order Comment: Specimen Type: BLOOD SPECIMENOrdering Facility: [facility] Address: [address] [place], [place] [address]Result Comment: The [place] Diabetes Association (ADA) provides guidance for cutoff [...] Standards of Medical Care in Diabetes 2016, [place] [employer]. Diabetes Care. 2016.39(Suppl 1).Performed By: #### 90130-2 ####K[facility] LABORATORYCLIA [id number] [place] [id number] [place] AMERICAPotassium [Moles/Vol]5.5 mmol/LHigh3.7-5.1CSelect [facility] on above:Order Comment: Specimen Type: BLOOD SPECIMENOrdering Facility: [facility] Address: [address] [place], [place] [address]Performed By: #### 90093-6 ####K[facility] LABORATORYCLIA [id number] [place] [id number] [place] AMERICAProtein [Mass/Vol]6.0 g/dLLow6.3-8.0[facility] on above:Order Comment: Specimen Type: BLOOD SPECIMENOrdering Facility: [facility] Address: [address] [place] [address] Performed By: #### 50376-4 ####KARINA LABORATORYCLIA [id number] [place] [address] [place] AMERICASodium [Moles/Vol]131 mmol/L Cwz740-316WqsyaxoygHarrison Community Hospital on above:Order Comment: Specimen Type: BLOOD SPECIMENOrdering Facility: [facility] Ad dress: [address] [place] [address] 58906Jfnssflkd By: #### 66414-7 ####K[facility] LABORATORYCLIA [id number] [place] [address] [place] AMERICAUrea nitrogen [Mass/Vol]43 mg/dLHigh9-24[facility] on above:Order Comment: Specimen Type: BLOOD SPECIMENOrdering Facility: [facility] Address: [address] [place] [address] 310[address]Adrbsnpql By: #### 35368-2 ####K[facility] LABORATORYCLIA [id number] [place] [address] [place] AMERICAGGT SerPl-cCncon 27-23-6015Hvumr glutamyl transferase [Catalytic activity/Vol]94 U/L Zsja47-40DtsriqbjfHarrison Community Hospital on above:Order Comment: Specimen Type: BLOOD SPECIMENOrdering Facility: [facility] Ad dress: [address] [place] [address] 17197Kdthyppvm By: #### 2324-2 ####[facility] MAIN LABCLIA [id number] [place] [address] [place] AMERICAMagnesium SerPl-mCncon 54-13-5077Iwiclqonb [Mass/Vol]1.7 mg/dLNormal1.7-2.3CSelect [facility] Special[facility] on above:Order Comment: Specimen Type: BLOOD SPECIMENOrdering Facility: [facility] Address: [address] [place], [place] [address]Performed By: #### 79963-6 ####[facility] LABORATORYCLIA [id number] [place] [id number] [place] OF AMERICANT-proBNP SerPl-mCncon 28-14-6022Flnjucdtswg peptide.B prohormone N-Terminal [Mass/Vol]363 pg/mLHigh<125[facility] on above:Order Comment: Specimen Type: BLOOD SPECIMENOrdering Facility: [facility] Address: [address] [place], [place] [address]Performed By: #### 21436-3 ####[facility] LABORATORYCLIA [id number] [place] [address] [place] Phosphate SerPl-[facility] 72-28-8660Goerymhay [Mass/Vol]4.6 mg/dLNormal2.7-4.8 [facility] on above:Order Comment: Specimen Type: BLOOD SPECIMENOrdering Facility: [facility] Address: [address] [place], [place] [address]Performed By: #### 2777-1 ####[facility] LABORATORYCLIA [id number] [place] [address] [place] OF COSHO[facility] REGIONAL MEDICAL CENTERTacrolimus Bld-[facility] 52-67-8746Grlasuulpu (Bld) [Mass/Vol]6.8 ng/mL Normal5.0-20.0[facility] on above:Order Comment: Specimen Type: BLOOD SPECIMENOrdering Facility: [facility] Ad dress: [address] [place], [place] [address]Result Comment: Individualized target levels for a given [...] situation. Test performed by chemiluminescent immunoassay using KupiBonus Alinity i.Performed By: #### 42021-7 ####[facility] MAIN LABCLIA [id number] [place] [id number] [place] LUMBAR SPINE WO IVCONon 01-24-2025* * *Final Report* * * DATE OF EXAM: Jan 24 2025 2:16PM [facility] 0508 - CT LUMBAR SPINE WO IVCON [...] DATE OF EXAM: Jan 24 2025 2:16PM [facility] 0508 - CT LUMBAR SPINE WO IVCON [...] DATE OF EXAM: Jan 24 2025 2:16PM [facility] 0508 - CT LUMBAR SPINE WO IVCON [...] DATE OF EXAM: Jan 24 2025 2:16PM [facility] 0514 - CT THORACIC SPINE WO IVCON [...] DATE OF EXAM: Jan 24 2025 2:16PM [facility] 0514 - CT THORACIC SPINE WO IVCON [...] height loss and i (more content not included)...[facility] CT THORACIC SPINE WO IVCON* * *Final Report* * * * * * SEE BOTTOM OF REPORT FOR ADDENDED TEXT * * * DATE OF EXAM: Jan 24 2025 2:16PM [facility] 0514 - CT THORACIC SPINE WO IVCON [...] instrumented posterior fusion T8-L3 (more content not included)...NormalSt. [facility] Panel InformationOrdered By: Radiologist Radiology on 89-03-1677TXEK [employer] Work Phone: No Panel Informationon 29-10-2287Bqxqpdcjg Study observation (narrative)[facility] HealthcareTYPE + SCREENon 16-95-1159IPWORsfoev [facility] on above:Order Comment: Specimen Type: BLOOD SPECIMENOrdering Facility: [facility] Address: [address] [place], [place] [address]Performed By: #### TSCR ####CC MAIN BLOOD BANKCLIA [id number] [address] [address] [facility] HOSPITALRh Nom (Bld)PositiveNormalCSelect Medical Special[facility] on above: Order Comment: Specimen Type: BLOOD SPECIMENOrdering Facility: [facility] Address: [address] [place], [place] [address]Performed By: #### TSCR ####CC MAIN BLOOD BANKCLIA [id number] [address] [address] [facility] HOSPITALTYPE AND SCREEN EXPIRATION 01/27/2025 23:59NormalCSelect [facility] Special[facility] on above:Order Comment: Specimen Type: BLOOD SPECIMENOrdering Facility: [facility] Address: [address] [place], [place] [address]Performed By: #### TSCR ####CC MAIN BLOOD BANKCLIA [id number] [address] [address] [facility]IL[facility] HOSPITALECG 12 leadon 01-22-2025 Ventricular Rate : 74 BPM Atrial Rate : 74 BPM P-R Interval : 126 ms QRS Duration : 86 ms Q-T Interval : 412 ms QTC Calculation(Bazett) : 457 ms Calculated P [place] : 21 degrees Calculated R [place] : 34 degrees Calculated T [place] : 26 degrees WARNING: INTERPRETATION OF THIS ECG, ALTHOUGH ATTEMPTED, MAY BE ADVERSELY AFFECTED BY DATA QUALITY SINUS RHYTHM WITH PREMATURE ATRIAL COMPLEXES LOW VOLTAGE QRS, CONSIDER PULMONARY DISEASE, PERICARDIAL EFFUSION, OR NORMAL VARIANT BORDERLINE ECG Confirmed by ABENA URENA MD ([id number]) on 01/22/2025 11:44:19 AM NAME : LOYD BLANDON PID : [id number] : 1955 Gender : Male Race : ORD : [id number] Procedure Date : Dec 25 2024 13:20:17 [...] QTC Calculation(Bazett) : 457 ms Calculated P [place] : 21 degrees Calculated R [place]ote[place] : 34 degrees Calculated T [place] : 26 degrees WARNING: INTERPRETATION OF THIS ECG, ALTHOUGH ATTEMPTED, MAY BE ADVERSELY AFFECTED BY DATA QUALITY SINUS RHYTHM WITH PREMATURE ATRIAL COMPLEXES LOW VOLTAGE QRS, CONSIDER PULMONARY DISEASE, PERICARDIAL EFFUSION, OR NORMAL VARIANT BORDERLINE ECG Confirmed by ABENA URENA MD ([id number]) on 01/22/2025 11:44:19 AM NAME : LOYD BLANDON PID : [id number] : 1955 Gender : Male Race : ORD : [id number] Procedure Date : Dec 25 2024 13:20:17 [...] PAUL SNOWDEN Acquired by : EDDIE meyers [facility] HospitalECG 12 leadOrdered By: Radiologist Radiology on 06-70-9677FDHT [employer] Work Phone: ECG 12 leadon 33-75-8239Effrtljjwlh Rate : 81 BPM Atrial Rate : 81 BPM P-R Interval : 130 ms QRS Duration : 84 ms Q-T Interval : 368 ms QTC Calculation(Bazett) : 427 ms Calculated P [place]ote[place] : 48 degrees Calculated R [place]ote[place] : 38 degrees Calculated T [place]ote[place] : 39 degrees NORMAL SINUS RHYTHM NORMAL ECG Confirmed by MD BYERS TAMANNA ([id number]) on 01/21/2025 4:07:28 PM NAME : LOYD BLANDON PID : [id number] : 1955 Gender : Male Race : ORD : [id number] Procedure Date : Dec 11 2024 00:36:31 Edit Date : Jan 21 2025 16:07:40 Diagnosis: NORMAL SINUS RHYTHM NORMAL ECG Confirmed by MD BYERS TAMANNA ([id number]) on 01/21/2025 4:07:28 PM Test Reason : Chest Pain Location : 542 : G52NS G053- Overread By : MD BYERS TAMANNA Edited By : MD BYERS TAMANNA Referred By : PAUL SNOWDEN Acquired by : [id number],CCFRadiology, Radiologist, MD - 01/21/2025 Ventricular Rate : 81 BPM Atrial Rate : 81 BPM P-R Interval : 130 ms QRS Duration : 84 ms Q-T Interval : 368 ms QTC Calculation(Bazett) : 427 ms Calculated P Choteau : 48 degrees Calculated R Choteau : 38 degrees Calculated T Ch[place] : 39 degrees NORMAL SINUS RHYTHM NORMAL ECG Confirmed by MD BYERS TAMANNA ([id number]) on 01/21/2025 4:07:28 PM NAME : LOYD BLANDON PID : [id number] : 1955 Gender : Male Race : ORD : [id number] Procedure Date : Dec 11 2024 00:36:31 Edit Date : Jan 21 2025 16:07:40 Diagnosis: NORMAL SINUS RHYTHM NORMAL ECG Confirmed by MD BYERS TAMANNA ([id number]) on 01/21/2025 4:07:28 PM Test Reason : Chest Pain Location : 542 : G52NS G053- Overread By : MD BYERS TAMANNA Edited By : MD BYERS TAMANNA Referred By : PAUL SNOWDEN Acquired by : [id number], [facility] HealthcareVentricular Rate : 89 BPM Atrial Rate : 89 BPM P-R Interval : 132 ms QRS Duration : 82 ms Q-T Interval : 356 ms QTC Calculation(Bazett) : 433 ms Calculated P Choteau : 34 degrees Calculated R [place]oteau : 39 degrees Calculated T [place] : 42 degrees NORMAL SINUS RHYTHM NORMAL ECG Confirmed by MD BYERS TAMANNA ([id number]) on 01/21/2025 4:07:25 PM NAME : LOYD BLANDON PID : [id number] : 1955 Gender : Male Race : ORD : [id number] Procedure Date : Dec 10 2024 21:40:00 Edit Date : Jan 21 2025 16:07:36 Diagnosis: NORMAL SINUS RHYTHM NORMAL ECG Confirmed by MD BYERS TAMANNA ([id number]) on 01/21/2025 4:07:25 PM Test Reason : Chest Pain Location : 542 : G52NS G053- Overread By : MD BYERS TAMANNA Edited By : MD BYERS TAMANNA Referred By : PAUL SNOWDEN Acquired by : [id number],CCFRadiology, Radiologist, - 01/21/2025 Ventricular Rate : 89 BPM Atrial Rate : 89 BPM P-R Interval : 132 ms QRS Duration : 82 ms Q-T Interval : 356 ms QTC Calculation(Bazett) : 433 ms Calculated P Choteau : 34 degrees Calculated R [place]au : 39 degrees Calculated T [place]au : 42 degrees NORMAL SINUS RHYTHM NORMAL ECG Confirmed by MD BYERS TAMANNA ([id number]) on 01/21/2025 4:07:25 PM NAME : LOYD BLANDON PID : [id number] : 1955 Gender : Male Race : ORD : [id number] Procedure Date : Dec 10 2024 21:40:00 Edit Date : Jan 21 2025 16:07:36 Diagnosis: NORMAL SINUS RHYTHM NORMAL ECG Confirmed by MD BYERS TAMANNA ([id number]) on 01/21/2025 4:07:25 PM Test Reason : Chest Pain Location : 542 : G52NS G053- Overread By : MD BYERS TAMANNA Edited By : MD BYERS TAMANNA Referred By : PAUL SNOWDEN Acquired by : [id number], [facility] HealthcareVentricular Rate : 93 BPM Atrial Rate : 93 BPM P-R Interval : 102 ms QRS Duration : 74 ms Q-T Interval : 338 ms QTC Calculation(Bazett) : 420 ms Calculated P Choteau : 11 degrees Calculated R [place] : 24 degrees Calculated T [place] : 33 degrees SINUS RHYTHM WITH SHORT WI LOW VOLTAGE QRS, CONSIDER PULMONARY DISEASE, PERICARDIAL EFFUSION, OR NORMAL VARIANT NONSPECIFIC ST ABNORMALITY ABNORMAL ECG Confirmed by MD BYERS TAMANNA ([id number]) on 01/21/2025 4:07:23 PM NAME : LOYD BLANDON PID : [id number] : 1955 Gender : Male Race : ORD : [id number] Procedure Date : Dec 10 2024 18:13:30 Edit Date : Jan 21 2025 16:07:35 Diagnosis: SINUS RHYTHM WITH SHORT WI LOW VOLTAGE QRS, CONSIDER PULMONARY DISEASE, PERICARDIAL EFFUSION, OR NORMAL VARIANT NONSPECIFIC ST ABNORMALITY ABNORMAL ECG Confirmed by MD BYERS TAMANNA ([id number]) on 01/21/2025 4:07:23 PM Test Reason : [...] QTC Calculation(Bazett) : 420 ms Calculated P Choteau : 11 degrees Calculated R [place]ote[place] : 24 degrees Calculated T [place] : 33 degrees SINUS RHYTHM WITH SHORT WI LOW VOLTAGE QRS, CONSIDER PULMONARY DISEASE, PERICARDIAL EFFUSION, OR NORMAL VARIANT NONSPECIFIC ST ABNORMALITY ABNORMAL ECG Confirmed by MD BYERS TAMANNA ([id number]) on 01/21/2025 4:07:23 PM NAME : JAMIALOYD PID : [id number] : 1955 Gender : Male Race : ORD : [id number] Procedure Date : Dec 10 2024 18:13:30 Edit Date : Jan 21 2025 16:07:35 Diagnosis: SINUS RHYTHM WITH SHORT WI LOW VOLTAGE QRS, CONSIDER PULMONARY DISEASE, PERICARDIAL EFFUSION, OR NORMAL VARIANT NONSPECIFIC ST ABNORMALITY ABNORMAL ECG Confirmed by MD BYERS TAMANNA ([id number]) on 01/21/2025 4:07:23 PM Test Reason : [...] QTC Calculation(Bazett) : 445 ms Calculated P Choteau : 26 degrees Calculated R [place]oteau : 18 degrees Calculated T [place]au : 17 degrees NORMAL SINUS RHYTHM LOW VOLTAGE QRS, CONSIDER PULMONARY DISEASE, PERICARDIAL EFFUSION, OR NORMAL VARIANT BORDERLINE ECG Confirmed by MD BYERS TAMANNA ([id number]) on 01/21/2025 4:07:21 PM NAME : LOYD BLANDON PID : [id number] : 1955 Gender : Male Race : ORD : [id number] Procedure Date : Dec 05 2024 13:16:21 Edit Date : Jan 21 2025 16:07:33 Diagnosis: NORMAL SINUS RHYTHM LOW VOLTAGE QRS, CONSIDER PULMONARY DISEASE, PERICARDIAL EFFUSION, OR NORMAL VARIANT BORDERLINE ECG Confirmed by MD BYERS TAMANNA ([id number]) on 01/21/2025 4:07:21 PM Test Reason : [...] QTC Calculation(Bazett) : 445 ms Calculated P Choteau : 26 degrees Calculated R Choteau : 18 degrees Calculated T Choteau : 17 degrees NORMAL SINUS RHYTHM LOW VOLTAGE QRS, CONSIDER PULMONARY DISEASE, PERICARDIAL EFFUSION, OR NORMAL VARIANT BORDERLINE ECG Confirmed by MD BYERS TAMANNA ([id number]) on 01/21/2025 4:07:21 PM NAME : LOYD BLANDON PID : [id number] : 1955 Gender : Male Race : ORD : [id number] Procedure Date : Dec 05 2024 13:16:21 Edit Date : Jan 21 2025 16:07:33 Diagnosis: NORMAL SINUS RHYTHM LOW VOLTAGE QRS, CONSIDER PULMONARY DISEASE, PERICARDIAL EFFUSION, OR NORMAL VARIANT BORDERLINE ECG Confirmed by MD BYERS TAMANNA ([id number]) on 01/21/2025 4:07:21 PM Test Reason : Chest Pain Location : 86 : G101 G101-01 Overread By : MD BYERS TAMANNA Edited By : MD BYERS TAMANNA Referred By : PAUL SNOWDEN Acquired by : JULIANNE GRIJALVA [facility] 12 leadOrdered By: Radiologist Radiology on [id number] Work Phone: [facility] Work Phone: no Panel InformationOrdered By: Radiologist Radiology on [id number] Work Phone: cbc W Auto Differential panel (Bld)on 01-20-2025 Acanthocytes LM Ql (Bld)FewNormalCPomerene HospitalComment on above: Order Comment: Specimen Type: BLOOD SPECIMENOrdering Facility: [facility] Address: [address] [place], [place] [address]Performed By: #### 20422-0 ####[facility]ONCLEVEL[facility] LABORATORYCLIA [id number] [place] [address] [place] AMERICAAnisocytosis Ql (Bld)Present [facility] on above:Order Comment: Specimen Type: BLOOD SPECIMENOrdering Facility: [facility] Address: [address] [place], [place] [address]Performed By: #### 02024-5 ####[facility]ONCLEVEL[facility] LABORATORYCLIA [id number] [place] [id number] [place] OF AMERICABasophils (Bld) [#/Vol]0.15 10*3/uLHigh<0.11CPomerene Hospital Comment on above:Order Comment: Specimen Type: BLOOD SPECIMENOrdering Facility: [facility] Address: [address] [place], [place] [address]Performed By: #### 96241-9 ####[facility]ONC[facility] LABORATORYCLIA [id number] [place] [id number] [place] OF AMERICABasophils/100 WBC (Bld) 1.0 %[facility] on above:Order Comment: Specimen Type: BLOOD SPECIMENOrdering Facility: [facility] Ad dress: [address] [place], [place] [address]Performed By: #### 16052-9 ####KARINA LABORATORYCLIA [id number] [place] [address] [place] AMERICADifferential cell count method Nom (Bld)ManualNormal [facility] on above:Order Comment: Specimen Type: BLOOD SPECIMENOrdering Facility: [facility] Address: [address] [place], [place] [address]Performed By: #### 85049-9 ####KARINA LABORATORYCLIA [id number] [place] [address] [place] AMERICAEosinophils (Bld) [#/Vol]0.15 10*3/uLNormal<0.46[facility] on above:Order Comment: Specimen Type: BLOOD SPECIMENOrdering Facility: [facility] Address: [address] [place], [place] [address]Performed By: #### 05623-8 ####KARINA LABORATORYCLIA [id number] [place] [address] [place] Eosinophils/100 WBC (Bld)1.0 %NormalHarrison Community Hospital on above: Order Comment: Specimen Type: BLOOD SPECIMENOrdering Facility: [facility] Address: [address] [place], [place] [address]Performed By: #### 66238-2 ####KARINA LABORATORYCLIA [id number] [place] [address] [place] AMERICAErythrocyte distribution width (RBC) [Ratio]19.9 %High11.5-15.0[facility] on above: Order Comment: Specimen Type: BLOOD SPECIMENOrdering Facility: [facility] Address: [address] [place], [place] [address]Performed By: #### 55494-7 ####KARINA LABORATORYCLIA [id number] [place] [address] [place] AMERICAHematocrit (Bld) [Volume fraction]25.6 %Low39.0-51.0[facility] on above:Order Comment: Specimen Type: BLOOD SPECIMENOrdering Facility: [facility] Address: [address] [place], [place] [address]Performed By: #### 92049-4 ####KARINA LABORATORYCLIA [id number] [place] [id number] [place] OF AMERICAHemoglobin (Bld) [Mass/Vol]8.1 g/dLLow13.0-17.0 [facility] on above:Order Comment: Specimen Type: BLOOD SPECIMENOrdering Facility: [facility] Address: [address] [place], [place] [address]Performed By: #### 01461-8 ####KARINA LABORATORYCLIA [id number] [place] [address] [place] AMERICALymphocytes (Bld) [#/Vol]0.91 10*3/uLLow1.00-4.00[facility] on above:Order Comment: Specimen Type: BLOOD SPECIMENOrdering Facility: [facility] Address: [address] [place], [place] [address]Performed By: #### 91760-6 ####KARINA LABORATORYCLIA [id number] [place] [id number] [place] Lymphocytes/100 WBC (Bld)6.0 %NormalHarrison Community Hospital on above: Order Comment: Specimen Type: BLOOD SPECIMENOrdering Facility: [facility] Address: [address] [place], [place] [address]Performed By: #### 12705-1 ####KARINA LABORATORYCLIA [id number] [place] [id number] [place] OF AMERICAMCH (RBC) [Entitic mass]32.4 pfOjzwha77.0-34.0[facility] on above:Order Comment: Specimen Type: BLOOD SPECIMENOrdering Facility: [facility] Address: [address] [place], [place] [address]Performed By: #### 79222-3 ####KARINA LABORATORYCLIA [id number] [place] [id number] [place] [facility]ICAL CENTERMCHC (RBC) [Mass/Vol]31.6 g/tOFmrbjr64.5-36.0 [facility] HospitalCombronson lake[facility] hospital on above:Order Comment: Specimen Type: BLOOD SPECIMENOrdering Facility: [facility] Address: [address] [place], [place] [address]Performed By: #### 57767-7 ####KARINA LABORATORYCLIA [id number] [place] [address] UNITED [facility] HOSPITALMCV (RBC) [Entitic vol]102.4 zMQzmp56.0-100.0[facility] Comment on above:Order Comment: Specimen Type: BLOOD SPECIMENOrdering Facility: [facility] Address: [address] [place], [place] [address]Performed By: #### 31401-9 ####KARINA LABORATORYCLIA [id number] [place] [address] [place] AMERICAMetamyelocytes/100 WBC (Bld)1.0 %[facility] CampusCombronson lakeview hospital on above:Order Comment: Specimen Type: BLOOD SPECIMENOrdering Facility: [facility] Address: [address] [place], [place] [address]Performed By: #### 05581-8 ####KARINA LABORATORYCLIA [id number] [place] [address] [place] AMERICAMonocytes (Bld) [#/Vol]0.30 10*3/uLNormal<0.87 [facility] HospitalComment on above:Order Comment: Specimen Type: BLOOD SPECIMENOrdering Facility: [facility] Address: [address] [place], [place] [address]Performed By: #### 69030-8 ####KARINA LABORATORYCLIA [id number] [place] [address] [place] AMERICAMonocytes/100 WBC (Bld)2.0 %[facility] on above:Order Comment: Specimen Type: BLOOD SPECIMENOrdering Facility: [facility] Address: [address] [place] [address] Performed By: #### 08254-7 ####KARINA LABORATORYCLIA [id number] [place] [address] [place] AMERICANeutrophils (Bld) [#/Vol]13.47 10*3/uLHigh1.45-7.50[facility] HospitalComment on above:Order Comment: Specimen Type: BLOOD SPECIMENOrdering Facility: [facility] Address: [address] [place], [place] [address]Performed By: #### 03371-4 ####KARINA LABORATORYCLIA [id number] [place] [id number] [place] AMERICANeutrophils/100 WBC (Bld)89.0 %NormalHarrison Community Hospital on above:Order Comment: Specimen Type: BLOOD SPECIMENOrdering Facility: [facility] Address: [address] [place], [place] [address]Performed By: #### 81156-6 ####KARINA LABORATORYCLIA [id number] [place] [address] [place] AMERICANucleated RBC (Bld) [#/Vol]10*3/uLNormal<0.01[facility] Comment on above:Order Comment: Specimen Type: BLOOD SPECIMENOrdering Facility: [facility] Address: [address] [place], [place] [address]Performed By: #### 13129-7 ####KARINA LABORATORYCLIA [id number] [place] [id number] [place] AMERICANucleated RBC/100 WBC (Bld) [Ratio]0.0 /100 WBCNormalCSelect Medical [facility] on above:Order Comment: Specimen Type: BLOOD SPECIMENOrdering Facility: [facility] Address: [address] [place], [place] [address]Performed By: #### 78953-5 ####KARINA LABORATORYCLIA [id number] [place] [id number] [place] AMERICAOvalocytes LM Ql (Bld)FewNormalCleveland Clinic ClevelandComment on above:Order Comment: Specimen Type: BLOOD SPECIMENOrdering Facility: [facility] Address: [address] [place], [place] [address]Performed By: #### 38997-3 ####KARINA LABORATORYCLIA [id number] [place] [address] [place] AMERICAPlatelet mean volume (Bld) [Entitic vol]10.6 fLNormal9.0-12.7ClevelCherrington Hospital CletrihealthCombronson lakeview hospital on above:Order Comment: Specimen Type: BLOOD SPECIMENOrdering Facility: [facility] Address: [address] [place], [place] [address]Performed By: #### 85195-1 ####KARINA LABORATORYCLIA [id number] [place] [address] [place] AMERICAPlatelets (Bld) [#/Vol]237 10*3/sQIkubrw860-915SkzhornpdWyandot Memorial Hospital Comment on above:Order Comment: Specimen Type: BLOOD SPECIMENOrdering Facility: [facility] Address: [address] [place], [place] [address]Performed By: #### 69742-8 ####KARINA LABORATORYCLIA [id number] [place] [address] [place] AMERICAPlatelets Estimate (Bld) [#/Vol]AdequateNormalCleveland Inova Mount Vernon HospitalvelandCombronson lakeview hospital on above:Order Comment: Specimen Type: BLOOD SPECIMENOrdering Facility: [facility] Address: [address] [place], [place] [address]Performed By: #### 60750-1 ####KARINA LABORATORYCLIA [id number] [place] [id number] [place] AMERICAPolychromasia LM Ql (Bld)SlightNormalCleveland FirsthealthComment on above:Order Comment: Specimen Type: BLOOD SPECIMENOrdering Facility: [facility] Address: [address] [place], [place] [address]Performed By: #### 87773-2 ####KARINA LABORATORYCLIA [id number] [place] [id number] [place] AMERICARBC (Bld) [#/Vol]2.50 10*6/uLLow4.20-6.00[facility] Comment on above:Order Comment: Specimen Type: BLOOD SPECIMENOrdering Facility: [facility] Address: [address] [place], [place] [address]Performed By: #### 69620-4 ####KARINA LABORATORYCLIA [id number] [place] [address] [place] AMERICARED CELL MORPHReviewed: see results of individual morphologiesNoBarney Children's Medical CenterCombronson lakeview hospital on above:Order Comment: Specimen Type: BLOOD SPECIMENOrdering Facility: [facility] Address: [address] [place] [address] Performed By: #### 36293-7 ####KARINA LABORATORYCLIA [id number] [place] [address] [place] AMERICAWBC (Bld) [#/Vol]15.14 10*3/uL High3.70-11.00[facility] Memorial HospitalComment on above:Order Comment: Specimen Type: BLOOD SPECIMENOrdering Facility: [facility] Ad dress: [address] [place], [place] [address]Performed By: #### 73751-7 ####KARINA LABORATORYCLIA [id number] [place] [address] [place] AMERICAWBC Left Shift Ql (Bld)PresentNoBarney Children's Medical CenterComment on above:Order Comment: Specimen Type: BLOOD SPECIMENOrdering Facility: [facility] Address: [address] [place], [place] [address]Performed By: #### 46882-2 ####KARINA LABORATORYCLIA [id number] [place] [address] [place] AMERICACCF CBC W AUTO DIFF BLDon 55-25-7990Ngwepixyw/100 WBC (Bld)1 %[facility] HealthcareCCF ACANTHOCYTES BLD QL SMEARFewNOWV HealthcareCCF ANISOCYTOSISPresentNOMS HealthcareCCF BASOPHILS # BLD AUTO0.15HighNINFSaint Mary's Hospital of Blue SpringsCCF DIFFERENTIAL METHOD BLDManualNONevada Regional Medical CenterCCF EOSINOPHIL # BLD AUTO0.15NINFNONevada Regional Medical Center CCF LYMPHOCYTES # BLD AUTO0.91LowHermann Area District HospitalF META%1 %[facility] HospitalF MONOCYTES # BLD AUTO0.3NINFHermann Area District HospitalF NEUTROPHILS # BLD AUTO13.47High [facility] District HospitalF NRBC # BLD AUTO<0.01NISaint Thomas [facility] Hospital NRBC/100 WBC BLD-RTO0/100 WBCKansas City VA Medical Center OVALOCYTES BLD QL SMEARFewHermann Area District HospitalF PLATELET # BLD LOQN341EUBPKansas City VA Medical Center PMV BLD AUTO10.6 fL9.0 - 12.7 fLKansas City VA Medical Center POLYCHROMASIA BLD QL SMEARSlightKansas City VA Medical Center RED CELL MORPH Reviewed: see results of individual morphologiesKansas City VA Medical Center WBC # BLD AUTO15.14HighKansas City VA Medical Center WBC LEFT SHIFT BLD QL AUTOPresentSaint [facility] Hospital [facility] Eosinophils/100 WBC (Bld)1 %[facility] Blue SpringsErythrocyte distribution width (RBC) [Ratio]19.9 %High11.5 - 15.0 %[facility] Blue SpringsHematocrit (Bld) [Volume fraction] 25.6 %Low39.0 - 51.0 %[facility] Blue SpringsHemoglobin (Bld) [Mass/Vol]8.1 g/dLLow13.0 - 17.0 g/dLSaint Mary's Hospital of Blue SpringsInterpretation and review of laboratory results AbnormalSaint Mary's Hospital of Blue SpringsLymphocytes/100 WBC (Bld)6 %[facility] HospitalH (RBC) [Entitic mass]32.4 pg26.0 - 34.0 pgSaint John's Aurora Community HospitalHC (RBC) [Mass/Vol]31.6 g/dL 30.5 - 36.0 g/dLSaint John's Aurora Community HospitalV (RBC) [Entitic vol]102.4 nWNfgc40.0 - 100.0 fLSaint Mary's Hospital of Blue SpringsMonocytes/100 WBC (Bld)2 %[facility] SpringsNeutrophils/100 WBC (Bld)89 %[facility] HealthcarePLATELET # BLD ESTAdequateNONevada Regional Medical CenterRBC (Bld) [#/Vol]2.5 10*6/uLLow4.20 - 6.00 m/uLOREM COMMUNITY [facility] HealthcareSpecimen Type: BLOOD SPECIMEN Ordering Facility: [facility] Address: [address] [place] [address] Original Ordering Provider: DAVID BEYER [facility] SerPLifecare Hospital of Pittsburgh on 79-58-7095KUB [Mass/Vol]17.1 mg/dLHigh<0.9CSelect Medical Specialty [facility] on above:Order Comment: Specimen Type: BLOOD SPECIMENOrdering Facility: [facility] Address: [address] [place] [address] Performed By: #### 1988-5 ####KARINA LABORATORYCLIA [id number] [place] [id number] [place] AMERICACYTOMEGALOVIRUS (CMV) DNA, QUANTITATIVE PCR, PLASMAon 14-74-2787HJY DNA JESSICA+probe Qn (P)Not detectedNormal Not DetectedHarrison Community Hospital on above:Order Comment: Specimen Type: BLOOD SPECIMENOrdering Facility: [facility] Ad dress: [address] [place], [place] [address]Performed By: #### CMVQNT ####[facility] LABCLIA [id number] [facility] [id number] [place] [address] [place] AMERICAComprehensive metabolic 2000 panelon 90-77-3336Oxdzaki [Mass/Vol]2.9 g/dLLow3.9-4.9ClevelUNC Health Rex Holly Springs Comment on above:Order Comment: Specimen Type: BLOOD SPECIMENOrdering Facility: [facility] Address: [address] [place], [place] [address]Performed By: #### 58815-9 ####KARINA LABORATORYCLIA [id number] [place] [id number] [place] AMERICAALP [Catalytic activity/Vol]245 U/YPyrg62-285YmcvqeotyHarrison Community Hospital on above:Order Comment: Specimen Type: BLOOD SPECIMENOrdering Facility: [facility] Address: [address] [place], [place] [address]Performed By: #### 96402-6 ####DEONCLEVELAND CLINIC [facility] LABORATORYCLIA [id number] [place] [address] [place] AMERICAALT [Catalytic activity/Vol]21 U/OOikrps23-87 [facility] on above:Order Comment: Specimen Type: BLOOD SPECIMENOrdering Facility: [facility] Address: [address] [place], [place] [address]Performed By: #### 32423-9 ####KARINA LABORATORYCLIA [id number] [place] [id number] [place] AMERICAAnion gap [Moles/Vol]9 mmol/LNormal8-15[facility] HospitalCombronson lake[facility] hospital on above:Order Comment: Specimen Type: BLOOD SPECIMENOrdering Facility: [facility] Address: [address] [place] [address] Performed By: #### 02295-7 ####KARINA LABORATORYCLIA [id number] [place] [id number] [place] AMERICAAST [Catalytic activity/Vol]27 U/RNxslfc78-27SbbxyzaueWyandot Memorial HospitalComment on above:Order Comment: Specimen Type: BLOOD SPECIMENOrdering Facility: [facility] Ad dress: [address] [place], [place] [address]Performed By: #### 74863-1 ####KARINA LABORATORYCLIA [id number] [place] [id number] [place] AMERICABilirubin [Mass/Vol]0.3 mg/dLNormal0.2-1.3CPomerene HospitalCombronson lakeview hospital on above:Order Comment: Specimen Type: BLOOD SPECIMENOrdering Facility: [facility] Address: [address] [place], [place] [address]Performed By: #### 70772-0 ####KARINA LABORATORYCLIA [id number] [place] [id number] [place] AMERICACalcium [Mass/Vol]8.7 mg/dLNormal8.5-10.2CPomerene Hospital Comment on above:Order Comment: Specimen Type: BLOOD SPECIMENOrdering Facility: [facility] Address: [address] [place], [place] [address]Performed By: #### 64782-4 ####KARINA LABORATORYCLIA [id number] [place] [id number] [place] AMERICAChloride [Moles/Vol]97 mmol/UXrm80-637KqrxlcxhzHarrison Community Hospital on above:Order Comment: Specimen Type: BLOOD SPECIMENOrdering Facility: [facility] Address: [address] [place], [place] [address]Performed By: #### 87878-3 ####DEONROLF LABORATORYCLIA [id number] [place] [id number] [place] AMERICACO2 [Moles/Vol]23 mmol/CDscbtx43-05OxjdsjtpfHarrison Community Hospital on above:Order Comment: Specimen Type: BLOOD SPECIMENOrdering Facility: [facility] Address: [address] [place], [place] [address]Performed By: #### 68578-6 ####KARINA LABORATORYCLIA [id number] [place] [address] [place] AMERICACreatinine [Mass/Vol]0.97 mg/dLNormal0.73-1.22[facility] Comment on above:Order Comment: Specimen Type: BLOOD SPECIMENOrdering Facility: [facility] Address: [address] [place], [place] [address]Performed By: #### 86568-4 ####DEONROLF LABORATORYCLIA [id number] [place] [address] [place] AMERICAeGFRcr SerPlBld CKD-EPI 628260 mL/min/1.73m???Normal>=60[facility] on above: Order Comment: Specimen Type: BLOOD SPECIMENOrdering Facility: [facility] Address: [address] [place], [place] [address]Result Comment: Estimated Glomerular Filtration Rate (eGFR) is calculated using the 2020 CKD-EPI creatinine equation. This equation utilizes serum creatinine, sex, and age as parameters. The creatinine assay has traceable calibration to isotope dilution-mass spectrometry. Refer to KDIGO guidelines for clinical interpretation. In patients with unstable renal function, e.g. those with acute kidney injury, the eGFR may not accurately reflect actual GFR.Performed By: #### 54516-1 ####KARINA LABORATORYCLIA [id number] [place] [address] [place] AMERICAGlucose [Mass/Vol]89 mg/gKQjynul63-84WnmwjkpwjHarrison Community Hospital on above:Order Comment: Specimen Type: BLOOD SPECIMENOrdering Facility: [facility] Address: [address] [place], [place] [address]Result Comment: The [place] Diabetes Association (ADA) provides guidance for cutoff [...] Standards of Medical Care in Diabetes 2016, [place] [employer] Association. Diabetes Care. 2016.39(Suppl 1). Performed By: #### 73097-8 ####[facility] LABORATORYCLIA [id number] [place] [address] [place] OF AMERICAPotassium [Moles/Vol]5.3 mmol/LHigh3.7-5.1CSelect Medical [facility] on above:Order Comment: Specimen Type: BLOOD SPECIMENOrdering Facility: [facility] Address: [address] [place], [place] [address]Performed By: #### 19513-4 ####KARINA LABORATORYCLIA [id number] [place] [id number] [place] OF AMERICAProtein [Mass/Vol]6.0 g/dLLow6.3-8.0[facility] on above:Order Comment: Specimen Type: BLOOD SPECIMENOrdering Facility: [facility] Address: [address] [place], [place] [address]Performed By: #### 23465-4 ####KARINA LABORATORYCLIA [id number] [place] [address] [place] AMERICASodium [Moles/Vol]129 mmol/FUer086-665WprfitobdHarrison Community Hospital on above:Order Comment: Specimen Type: BLOOD SPECIMENOrdering Facility: [facility] Address: [address] [place] [address] Performed By: #### 61663-5 ####KARINA LABORATORYCLIA [id number] [place] [id number] [place] OF AMERICAUrea nitrogen [Mass/Vol]21 mg/dLNormal9-[facility] on above:Order Comment: Specimen Type: BLOOD SPECIMENOrdering Facility: [facility] Address: [address] [place], [place] [address]Performed By: #### 09339-5 ####KARINA LABORATORYCLIA [id number] [place] [id number] [place] OF AMERICAECG 12 leadon 32-58-3696Mkpqxzscvzi Rate : 110 BPM Atrial Rate : 110 BPM P-R Interval : 126 ms QRS Duration : 72 ms Q-T Interval : 346 ms QTC Calculation(Bazett) : 468 ms Calculated P [place]ote[place] : 22 degrees Calculated R [place] : 27 degrees Calculated T [place] : 26 degrees SINUS TACHYCARDIA LOW VOLTAGE QRS, CONSIDER PULMONARY DISEASE, PERICARDIAL EFFUSION, OR NORMAL VARIANT BORDERLINE ECG Confirmed by ASHLEIGH MELENDEZ MD ([id number]) on 01/20/2025 10:55:23 PM NAME : LOYD BLANDON PID : [id number] : 1955 Gender : Male Race : ORD : [id number] Procedure Date : Nov 22 2024 02:09:31 Edit Date : Jan 20 2025 22:55:25 Diagnosis: SINUS TACHYCARDIA LOW VOLTAGE QRS, CONSIDER PULMONARY DISEASE, PERICARDIAL EFFUSION, OR NORMAL VARIANT BORDERLINE ECG Confirmed by ASHLEIGH MELENDEZ MD ([id number]) on 01/20/2025 10:55:23 PM Test Reason : Arrhythmia Location : 86 : G101 [id number] Overread By : ASHLEIGH MELENDEZ MD Edited By : ASHLEIGH MELENDEZ MD Referred By : PAUL SNOWDEN Acquired by : CROW CONNFRadiology, Radiologist, - 01/20/2025 Ventricular Rate : 110 BPM Atrial Rate : 110 BPM P-R Interval : 126 ms QRS Duration : 72 ms Q-T Interval : 346 ms QTC Calculation(Bazett) : 468 ms Calculated P Choteau : 22 degrees Calculated R Choteau : 27 degrees Calculated T Choteau : 26 degrees SINUS TACHYCARDIA LOW VOLTAGE QRS, CONSIDER PULMONARY DISEASE, PERICARDIAL EFFUSION, OR NORMAL VARIANT BORDERLINE ECG Confirmed by ASHLEIGH MELENDEZ MD ([id number]) on 01/20/2025 10:55:23 PM NAME : LOYD BLANDON PID : [id number] : 1955 Gender : Male Race : ORD : [id number] Procedure Date : Nov 22 2024 02:09:31 Edit Date : Jan 20 2025 22:55:25 Diagnosis: SINUS TACHYCARDIA LOW VOLTAGE QRS, CONSIDER PULMONARY DISEASE, PERICARDIAL EFFUSION, OR NORMAL VARIANT BORDERLINE ECG Confirmed by ASHLEIGH MELENDEZ MD ([id number]) on 01/20/2025 10:55:23 PM Test Reason : Arrhythmia Location : 86 : G101 [id number] Overread By : ASHLEIGH MELENDEZ MD Edited By : ASHLEIGH MELENDEZ MD Referred By : PAUL SNOWDEN Acquired by : SUKHI CONN [place] 12 leadOrdered By: Radiologist Radiology on 87-69-8663WUYW [employer] Work Phone: GGT SerPl-cCncon 69-14-5659Pnkfd glutamyl transferase [Catalytic activity/Vol]133 U/EHflv29-83MwrkdmltcHarrison Community Hospital on above:Order Comment: Specimen Type: BLOOD SPECIMENOrdering Facility: [facility] Address: [address] [place] [address] Performed By: #### 2324-2 ####[facility] LABCLIA [id number] [place] [address] [place] Magnesium SerPl-mCncon 62-49-0432Qiwhiqgfg [Mass/Vol]1.6 mg/dLLow1.7-2.3 [facility] on above:Order Comment: Specimen Type: BLOOD SPECIMENOrdering Facility: [facility] Address: [address] [place], [place] [address]Performed By: #### 03623-0 ####[facility] LABORATORYCLIA [id number] [place] [address] [place] AMERICANT-proBNP SerPl-mCncon 99-67-2495Ubgiaqfhenz peptide.B prohormone N- Terminal [Mass/Vol]616 pg/mLHigh<125[facility] HospitalCombronson [facility] on above: Order Comment: Specimen Type: BLOOD SPECIMENOrdering Facility: [facility] Address: [address] [place], [place] [address]Performed By: #### 29399-6 ####KAR[facility] LABORATORYCLIA [id number] [place] [address] [place] AMERICAPhosphate SerPl-mCncon 55-97-5616Czbsnidts [Mass/Vol]4.1 mg/dLNormal2.7-4.8CPomerene Hospital Comment on above:Order Comment: Specimen Type: BLOOD SPECIMENOrdering Facility: [facility] Address: [address] [place], [place] [address]Performed By: #### 2777-1 ####[facility] LABORATORYCLIA [id number] [address] STATES OF COSHOCTON REGIONAL MEDICAL CENTERTacrolimus Bld-nc 70-62-3760Tzjpwyjxvp (Bld) [Mass/Vol]8.6 ng/mLNormal5.0-20.0[facility] HospitalCombronson lakeview hospital on above:Order Comment: Specimen Type: BLOOD SPECIMENOrdering Facility: [facility] Address: [address] [place], [place] [address]Result Comment: Individualized target levels for a given [...] situation. Test performed by chemiluminescent immunoassay using KupiBonus Alinity i.Performed By: #### 05979-0 ####[facility] LABCLIA [id number] [facility] [place], [place] [address] [place] AMERICACBC W Auto Differential panel (Bld)on 74-58-0933Omegnlrjxofh Ql (Bld)PresentNormalCPomerene Hospital Comment on above:Order Comment: Specimen Type: BLOOD SPECIMENOrdering Facility: [facility] Address: [address] [place], [place] [address]Performed By: #### 67953-4 ####K[facility] LABORATORYCLIA [id number] [place] [address] [place] AMERICABasophils (Bld) [#/Vol] 0.00 10*3/uLNormal<0.11CPomerene HospitalCombronson lakeview hospital on above:Order Comment: Specimen Type: BLOOD SPECIMENOrdering Facility: [facility] Address: [address] [place], [place] [address]Performed By: #### 01699-4 ####KAR[facility] LABORATORYCLIA [id number] [place] [id number] [place] AMERICABasophils/100 WBC (Bld)0.0 %NormalWyandot Memorial HospitalComment on above:Order Comment: Specimen Type: BLOOD SPECIMENOrdering Facility: [facility] Address: [address] [place], [place] [address]Performed By: #### 17487-0 ####KARINA LABORATORYCLIA [id number] [place] [address] [place] AMERICADifferential cell count method Nom (Bld)ManualNormalCPomerene HospitalCombronson lakeview hospital on above:Order Comment: Specimen Type: BLOOD SPECIMENOrdering Facility: [facility] Address: [address] [place], [place] [address]Performed By: #### 14268-4 ####KAR[facility] LABORATORYCLIA [id number] [place] [address] [place] Eosinophils (Bld) [#/Vol]0.22 10*3/uLNormal<0.46[facility] Comment on above:Order Comment: Specimen Type: BLOOD SPECIMENOrdering Facility: [facility] Address: [address] [place], [place] [address]Performed By: #### 50126-2 ####KARINA LABORATORYCLIA [id number] [place] [id number] [place] AMERICAEosinophils/100 WBC (Bld)2.0 %NormalHarrison Community Hospital on above:Order Comment: Specimen Type: BLOOD SPECIMENOrdering Facility: [facility] Address: [address] [place], [place] [address]Performed By: #### 60439-0 ####K[facility] LABORATORYCLIA [id number] [place] [address] [place] AMERICAErythrocyte distribution width (RBC) [Ratio] 19.9 %High11.5-15.0[facility] on above:Order Comment: Specimen Type: BLOOD SPECIMENOrdering Facility: [facility] Address: [address] [place], [place] [address]Performed By: #### 73349-0 ####KAR[facility] LABORATORYCLIA [id number] [place] [address] [place] AMERICAHematocrit (Bld) [Volume fraction]24.2 %Low 39.0-51.0[facility] on above:Order Comment: Specimen Type: BLOOD SPECIMENOrdering Facility: [facility] Ad dress: [address] [place], [place] [address]Performed By: #### 68940-3 ####KARINA LABORATORYCLIA [id number] [place] [id number] [place] AMERICAHemoglobin (Bld) [Mass/Vol]7.6 g/dLLow13.0-17.0[facility] on above:Order Comment: Specimen Type: BLOOD SPECIMENOrdering Facility: [facility] Address: [address] [place], [place] [address]Performed By: #### 20055-3 ####KAR[facility] LABORATORYCLIA [id number] [place] [id number] [place] OF AMERICALymphocytes (Bld) [#/Vol]0.56 10*3/uLLow1.00-4.00[facility] on above:Order Comment: Specimen Type: BLOOD SPECIMENOrdering Facility: [facility] Address: [address] [place], [place] [address]Performed By: #### 37874-5 ####KAR[facility] LABORATORYCLIA [id number] [place] [address] [place] Lymphocytes/100 WBC (Bld)3.0 %NormalHarrison Community Hospital on above: Order Comment: Specimen Type: BLOOD SPECIMENOrdering Facility: [facility] Address: [address] [place], [place] [address]Performed By: #### 28750-4 ####KARINA LABORATORYCLIA [id number] [address] (RBC) [Entitic mass]31.4 erAnpvhw33.0-34.0[facility] on above:Order Comment: Specimen Type: BLOOD SPECIMENOrdering Facility: [facility] Address: [address] [place], [place] [address]Performed By: #### 62510-7 ####KARINA LABORATORYCLIA [id number] [address] (RBC) [Mass/Vol]31.4 g/wTHzhwds24.5-36.0 [facility] on above:Order Comment: Specimen Type: BLOOD SPECIMENOrdering Facility: [facility] Address: [address] [place], [place] [address]Performed By: #### 52302-4 ####K[facility]INA LABORATORYCLIA [id number] [address] (RBC) [Entitic vol]100.0 aLUibdcx60.0-100.0[facility] on above:Order Comment: Specimen Type: BLOOD SPECIMENOrdering Facility: [facility] Address: [address] [place], [place] [address]Performed By: #### 18352-6 ####KARINA LABORATORYCLIA [id number] [address] STATES [facility] Metamyelocytes/100 WBC (Bld)2.0 %NormalHarrison Community Hospital on above:Order Comment: Specimen Type: BLOOD SPECIMENOrdering Facility: [facility] Address: [address] [place] [address] Performed By: #### 90919-6 ####K[facility] LABORATORYCLIA [id number] [place] [id number] [place] AMERICAMonocytes (Bld) [#/Vol]0.89 10*3/uLHigh<0.87[facility] on above:Order Comment: Specimen Type: BLOOD SPECIMENOrdering Facility: [facility] Address: [address] [place], [place] [address]Performed By: #### 55589-7 ####KAR[facility] LABORATORYCLIA [id number] [place] [id number] [place] AMERICAMonocytes/100 WBC (Bld)8.0 %NormalHarrison Community Hospital on above:Order Comment: Specimen Type: BLOOD SPECIMENOrdering Facility: [facility] Address: [address] [place], [place] [address]Performed By: #### 56936-6 ####K[facility] LABORATORYCLIA [id number] [place] [address] [place] AMERICANeutrophils (Bld) [#/Vol]9.25 10*3/uLHigh1.45-7.50[facility] on above:Order Comment: Specimen Type: BLOOD SPECIMENOrdering Facility: [facility] Address: [address] [place], [place] [address]Performed By: #### 90702-5 ####KAR[facility] LABORATORYCLIA [id number] [place] [id number] [place] Neutrophils/100 WBC (Bld)83.0 %NormalHarrison Community Hospital on above: Order Comment: Specimen Type: BLOOD SPECIMENOrdering Facility: [facility] Address: [address] [place], [place] [address]Performed By: #### 99049-4 ####K[facility] LABORATORYCLIA [id number] [place] [id number] [place] AMERICANucleated RBC (Bld) [#/Vol] 10*3/uLNormal<0.01[facility] on above:Order Comment: Specimen Type: BLOOD SPECIMENOrdering Facility: [facility] Address: [address] [place], [place] [address]Performed By: #### 04782-2 ####K[facility] LABORATORYCLIA [id number] [place] [address] [place] AMERICANucleated RBC/100 WBC (Bld) [Ratio]0.0 /100 WBCNormalCSelect Medical [facility] on above:Order Comment: Specimen Type: BLOOD SPECIMENOrdering Facility: [facility] Ad dress: [address] [place], [place] [address]Performed By: #### 78612-8 ####K[facility] LABORATORYCLIA [id number] [place] [address] [place] AMERICAOvalocytes LM Ql (Bld)FewNoalCSelect Medical Specialty [facility] on above:Order Comment: Specimen Type: BLOOD SPECIMENOrdering Facility: [facility] Address: [address] [place], [place] [address]Performed By: #### 14793-0 ####K[facility] LABORATORYCLIA [id number] [place] [address] [place] Platelet mean volume (Bld) [Entitic vol]10.3 fLNormal9.0-12.7CSelect Medical Specialty [facility] on above:Order Comment: Specimen Type: BLOOD SPECIMENOrdering Facility: [facility] Address: [address] [place], [place] [address]Performed By: #### 02126-1 ####K[facility] LABORATORYCLIA [id number] [place] [address] [place] Platelets (Bld) [#/Vol]278 10*3/kQGverbc112-457VvauxvffuHarrison Community Hospital on above:Order Comment: Specimen Type: BLOOD SPECIMENOrdering Facility: [facility] Address: [address] [place] [address] Performed By: #### 10384-0 ####[facility] LABORATORYCLIA [id number] [place] [address] [place] AMERICAPlatelets Estimate (Bld) [#/Vol]AdequateNormalCSelect Medical [facility] on above:Order Comment: Specimen Type: BLOOD SPECIMENOrdering Facility: [facility] Address: [address] [place], [place] [address]Performed By: #### 21546-0 ####[facility] LABORATORYCLIA [id number] [place] [id number] [place] AMERICAPolychromasia LM Ql (Bld)SlightNoalCSelect Medical Special[facility] on above:Order Comment: Specimen Type: BLOOD SPECIMENOrdering Facility: [facility] Address: [address] [place], [place] [address]Performed By: #### 37202-0 ####[facility] LABORATORYCLIA [id number] [place] [address] [place] AMERICARBC (Bld) [#/Vol]2.42 10*6/uLLow4.20-6.00[facility] Comment on above:Order Comment: Specimen Type: BLOOD SPECIMENOrdering Facility: [facility] Address: [address] [place], [place] [address]Performed By: #### 56885-2 ####K[facility] LABORATORYCLIA [id number] [place] [address] [place] AMERICARED CELL MORPHReviewed: see results of individual morphologiesKettering Health Troy on above:Order Comment: Specimen Type: BLOOD SPECIMENOrdering Facility: [facility] Address: [address] [place] [address] Performed By: #### 47030-0 ####[facility] LABORATORYCLIA [id number] [place] [id number] [place] AMERICAVariant lymphocytes/100 WBC (Bld)2.0 %NormalHarrison Community Hospital on above:Order Comment: Specimen Type: BLOOD SPECIMENOrdering Facility: [facility] Address: [address] [place], [place] [address]Performed By: #### 63145-5 ####[facility] LABORATORYCLIA [id number] [place] [id number] [place] AMERICAWBC (Bld) [#/Vol]11.14 10*3/uLHigh3.70-11.00 [facility] HospitalComment on above:Order Comment: Specimen Type: BLOOD SPECIMENOrdering Facility: [facility] Address: [address] [place], [place] [address]Performed By: #### 17186-6 ####K[facility] LABORATORYCLIA [id number] [place] [address] [place] AMERICAWBC Left Shift Ql (Bld)PresentNormalCleveland FirsthealthComment on above:Order Comment: Specimen Type: BLOOD SPECIMENOrdering Facility: [facility] Address: [address] [place] [address] Performed By: #### 74809-4 ####[facility] LABORATORYCLIA [id number] [place] [address] [place] [facility] MEDICAL CENTERCC NT-PROBNP [facility] HOSPITALon 85-95-4347Yoymazvllyvupq and review of laboratory resultsAbMcKenzie Memorial Hospital Natriuretic peptide B (Bld) [Mass/Vol]1165 pg/mLHighNINF - 125 pg/mLNOMS HealthcareSpecimen Type: BLOOD SPECIMEN Ordering Facility: [facility] Address: [address] [place] [address] Original Ordering Provider: DAVID BRAVOKindred Healthcare-[facility] on 70-71-6077NYV [Mass/Vol]21.9 mg/dLHigh<0.9ClevelUNC Health Rex Holly SpringsCombronson lakeview hospital on above:Order Comment: Specimen Type: BLOOD SPECIMENOrdering Facility: [facility] Address: [address] [place] [address] Performed By: #### 1988-5 ####[facility] LABORATORYCLIA [id number] [place] [id number] [place] AMERICAComprehensive metabolic 2000 panelon 30-68-5821Uayltfd [Mass/Vol]2.7 g/dLLow3.9-4.9CPomerene Hospital Comment on above:Order Comment: Specimen Type: BLOOD SPECIMENOrdering Facility: [facility] Address: [address] [place], [place] [address]Performed By: #### 53052-1 ####K[facility] LABORATORYCLIA [id number] [place] [address] [place] AMERICAALP [Catalytic activity/Vol]293 U/ZVgcr32-724GsigumvtkHarrison Community Hospital on above:Order Comment: Specimen Type: BLOOD SPECIMENOrdering Facility: [facility] Address: [address] [place] [address]Hnkktitrh By: #### 13800-2 ####KARINA LABORATORYCLIA [id number] [place] [address] [place] AMERICAALT [Catalytic activity/Vol]26 U/YBalwle15-91 [facility] on above:Order Comment: Specimen Type: BLOOD SPECIMENOrdering Facility: [facility] Address: [address] [place], [place] [address]Performed By: #### 76346-6 ####KAR[facility] LABORATORYCLIA [id number] [place] [address] [place] AMERICAAnion gap [Moles/Vol]9 mmol/LNormal8-15[facility] on above:Order Comment: Specimen Type: BLOOD SPECIMENOrdering Facility: [facility] Address: [address] [place] [address] Performed By: #### 93670-7 ####KAR[facility] LABORATORYCLIA [id number] [place] [address] [place] AMERICAAST [Catalytic activity/Vol]28 U/NVocolk34-86VdoixrsvhHarrison Community Hospital on above:Order Comment: Specimen Type: BLOOD SPECIMENOrdering Facility: [facility] Ad dress: [address] [place] [address]Mmpgnkrbd By: #### 10729-0 ####K[facility] LABORATORYCLIA [id number] [place] [address] [place] AMERICABilirubin [Mass/Vol]0.3 mg/dLNormal0.2-1.3CSelect [facility] Specialty [facility] on above:Order Comment: Specimen Type: BLOOD SPECIMENOrdering Facility: [facility] Address: [address] [place] [address]Bswvytdcg By: #### 39253-8 ####[facility] LABORATORYCLIA [id number] [place] [id number] [place] AMERICACalcium [Mass/Vol]8.8 mg/dLNormal8.5-10.2CPomerene Hospital Comment on above:Order Comment: Specimen Type: BLOOD SPECIMENOrdering Facility: [facility] Address: [address] [place], [place] [address]Performed By: #### 80536-6 ####[facility] LABORATORYCLIA [id number] [place] [address] [place] AMERICAChloride [Moles/Vol]101 mmol/OUbpjbx09-416ScwvjxcjmWyandot Memorial HospitalComment on above:Order Comment: Specimen Type: BLOOD SPECIMENOrdering Facility: [facility] Address: [address] [place], [place] [address]Performed By: #### 47656-6 ####[facility] LABORATORYCLIA [id number] [place] [address] [place] AMERICACO2 [Moles/Vol]28 mmol/MZtaxvr24-42UmgmnynonWyandot Memorial HospitalComment on above:Order Comment: Specimen Type: BLOOD SPECIMENOrdering Facility: [facility] Address: [address] [place], [place] [address]Performed By: #### 68587-0 ####[facility] LABORATORYCLIA [id number] [place] [id number] [place] AMERICACreatinine [Mass/Vol]0.84 mg/dLNormal0.73-1.22[facility] Comment on above:Order Comment: Specimen Type: BLOOD SPECIMENOrdering Facility: [facility] Address: [address] [place], [place] [address]Performed By: #### 41390-6 ####[facility] LABORATORYCLIA [id number] [place] [id number] [place] AMERICAeGFRcr SerPlBld CKD-EPI 822068 mL/min/1.73m???Normal>=60W[facility]andot Memorial HospitalComment on above: Order Comment: Specimen Type: BLOOD SPECIMENOrdering Facility: [facility] Address: [address] [place], [place] [address]Result Comment: Estimated Glomerular Filtration Rate (eGFR) is calculated using the 2020 CKD-EPI creatinine equation. This equation utilizes serum creatinine, sex, and age as parameters. The creatinine assay has traceable calibration to isotope dilution-mass spectrometry. Refer to KDIGO guidelines for clinical interpretation. In patients with unstable renal function, e.g. those with acute kidney injury, the eGFR may not accurately reflect actual GFR.Performed By: #### 43979-4 ####[facility] LABORATORYCLIA [id number] [place] [address] [place] AMERICAGlucose [Mass/Vol]83 mg/vELmkxqz01-65QemuchhhpHarrison Community Hospital on above:Order Comment: Specimen Type: BLOOD SPECIMENOrdering Facility: [facility] Address: [address] [place], [place] [address]Result Comment: The [place] [employer] (ADA) provides guidance for cutoff [...] Standards of Medical Care in Diabetes 2016, [place] [employer]. Diabetes Care. 2016.39(Suppl 1). Performed By: #### 27908-4 ####[facility] LABORATORYCLIA [id number] [place] [id number] [place] AMERICAPotassium [Moles/Vol]5.0 mmol/LNormal3.7-5.1CSelect [facility]ty [facility] on above:Order Comment: Specimen Type: BLOOD SPECIMENOrdering Facility: [facility] Address: [address] [place], [place] [address]Performed By: #### 64585-5 ####[facility] LABORATORYCLIA [id number] [place] [address] [place] AMERICAProtein [Mass/Vol]6.0 g/dLLow6.3-8.0W[facility] Memorial HospitalCombronson lakeview hospital on above:Order Comment: Specimen Type: BLOOD SPECIMENOrdering Facility: [facility] Address: [address] [place], [place] [address]Performed By: #### 45762-1 ####[facility] LABORATORYCLIA [id number] [place] [address] [place] AMERICASodium [Moles/Vol]138 mmol/ARgydiv418-810NnppminjpWyandot Memorial Hospital Comment on above:Order Comment: Specimen Type: BLOOD SPECIMENOrdering Facility: [facility] Address: [address] [place], [place] [address]Performed By: #### 63318-6 ####[facility]ONCLEVEL[facility] LABORATORYCLIA [id number] [place] [address] [place] AMERICAUrea nitrogen [Mass/Vol]19 mg/dLNormal9-24[facility] on above:Order Comment: Specimen Type: BLOOD SPECIMENOrdering Facility: [facility] Address: [address] [place], [place] [address]Performed By: #### 77977-6 ####KARINA LABORATORYCLIA [id number] [place] [address] [place] OF AMERICAGGT SerPl-cCncon 74-27-3329Uhduu glutamyl transferase [Catalytic activity/Vol]157 U/BFhan94-50CkttytlxqWyandot Memorial Hospital Comment on above:Order Comment: Specimen Type: BLOOD SPECIMENOrdering Facility: [facility] Address: [address] [place], [place] [address]Performed By: #### 2324-2 ####[facility] LABCLIA [id number] [place] [id number] [place] Magnesium SerPl-mCncon 41-21-8313Forjicfru [Mass/Vol]1.6 mg/dLLow1.7-2.3 [facility] on above:Order Comment: Specimen Type: BLOOD SPECIMENOrdering Facility: [facility] Address: [address] [place], [place] [address]Performed By: #### 57992-0 ####KARINA LABORATORYCLIA [id number] [place] [address] [place] AMERICANT-proBNP SerPl-mCncon 46-34-9676Teeszxrongq peptide.B prohormone N- Terminal [Mass/Vol]1165 pg/mLHigh<125[facility] HospitalCombronson lakeview hospital on above: Order Comment: Specimen Type: BLOOD SPECIMENOrdering Facility: [facility] Address: [address] [place], [place] [address]Performed By: #### 27993-7 ####KARINA LABORATORYCLIA [id number] [place] [address] [place] AMERICAPhosphate SerPl-mCncon 69-41-3635Dytagjtrt [Mass/Vol]4.4 mg/dLNormal2.7-4.8CPomerene Hospital Comment on above:Order Comment: Specimen Type: BLOOD SPECIMENOrdering Facility: [facility] Address: [address] [place], [place] [address]Performed By: #### 2777-1 ####KARINA LABORATORYCLIA [id number] [place] [address] [place] AMERICATacrolimus Bld-mCncon 12-43-4303Yhymevuzts (Bld) [Mass/Vol]10.9 ng/mLNormal5.0-20.0[facility] on above:Order Comment: Specimen Type: BLOOD SPECIMENOrdering Facility: [facility] Address: [address] [place], [place] [address]Result Comment: Individualized target levels for a given [...] situation. Test performed by chemiluminescent immunoassay using PointniThe New Daily i.Performed By: #### 51420-5 ####[facility] LABCLIA [id number] [facility] [place] [address] [place] AMERICACBC W Auto Differential panel (Bld)on 42-31-5958Ryedksoxrbci Ql (Bld)PresentNormalCPomerene Hospital Comment on above:Order Comment: Specimen Type: BLOOD SPECIMENOrdering Facility: [facility] Address: [address] [place], [place] [address]Performed By: #### 53102-2 ####KARINA LABORATORYCLIA [id number] [place] [address] [place] AMERICABasophils (Bld) [#/Vol] 0.00 10*3/uLNormal<0.11CPomerene HospitalComment on above:Order Comment: Specimen Type: BLOOD SPECIMENOrdering Facility: [facility] Address: [address] [place], [place] [address]Performed By: #### 83459-8 ####KARINA LABORATORYCLIA [id number] [place] [address] [place] AMERICABasophils/100 WBC (Bld)0.0 %NormalWyandot Memorial HospitalComment on above:Order Comment: Specimen Type: BLOOD SPECIMENOrdering Facility: [facility] Address: [address] [place], [place] [address]Performed By: #### 05499-2 ####KARINA LABORATORYCLIA [id number] [place] [address] [place] AMERICADifferential cell count method Nom (Bld)ManualNormalClevelUNC Health Rex Holly SpringsCombronson lakeview hospital on above:Order Comment: Specimen Type: BLOOD SPECIMENOrdering Facility: [facility] Address: [address] [place], [place] [address]Performed By: #### 58025-5 ####KARINA LABORATORYCLIA [id number] [place] [address] [place] Eosinophils (Bld) [#/Vol]0.22 10*3/uLNormal<0.46[facility] Comment on above:Order Comment: Specimen Type: BLOOD SPECIMENOrdering Facility: [facility] Address: [address] [place], [place] [address]Performed By: #### 71249-9 ####KARINA LABORATORYCLIA [id number] [place] [id number] [place] AMERICAEosinophils/100 WBC (Bld)2.0 %NormalHarrison Community Hospital on above:Order Comment: Specimen Type: BLOOD SPECIMENOrdering Facility: [facility] Address: [address] [place], [place] [address]Performed By: #### 65116-7 ####KARINA LABORATORYCLIA [id number] [place] [id number] [place] AMERICAErythrocyte distribution width (RBC) [Ratio] 19.6 %High11.5-15.0[facility] on above:Order Comment: Specimen Type: BLOOD SPECIMENOrdering Facility: [facility] Address: [address] [place], [place] [address]Performed By: #### 11663-3 ####KARINA LABORATORYCLIA [id number] [place] [id number] [place] AMERICAHematocrit (Bld) [Volume fraction]23.1 %Low 39.0-51.0[facility] on above:Order Comment: Specimen Type: BLOOD SPECIMENOrdering Facility: [facility] Ad dress: [address] [place], [place] [address]Performed By: #### 47412-9 ####KARINA LABORATORYCLIA [id number] [place] [id number] [place] AMERICAHemoglobin (Bld) [Mass/Vol]7.4 g/dLLow13.0-17.0[facility] on above:Order Comment: Specimen Type: BLOOD SPECIMENOrdering Facility: [facility] Address: [address] [place], [place] [address]Performed By: #### 97146-0 ####KARINA LABORATORYCLIA [id number] [place] [id number] [place] OF AMERICALymphocytes (Bld) [#/Vol]0.34 10*3/uLLow1.00-4.00[facility] HospitalCombronson lakeview hospital on above:Order Comment: Specimen Type: BLOOD SPECIMENOrdering Facility: [facility] Address: [address] [place], [place] [address]Performed By: #### 88506-1 ####KARINA LABORATORYCLIA [id number] [place] [address] [place] Lymphocytes/100 WBC (Bld)3.0 %NormalWyandot Memorial HospitalComment on above: Order Comment: Specimen Type: BLOOD SPECIMENOrdering Facility: [facility] Address: [address] [place], [place] [address]Performed By: #### 71575-6 ####KARINA LABORATORYCLIA [id number] [address] (RBC) [Entitic mass]31.9 igZpnsqu08.0-34.0W[facility]ot Memorial HospitalComment on above:Order Comment: Specimen Type: BLOOD SPECIMENOrdering Facility: [facility] Address: [address] [place], [place] [address]Performed By: #### 72518-9 ####KARINA LABORATORYCLIA [id number] [address] (RBC) [Mass/Vol]32.0 g/oBJaunym84.5-36.0 [facility] on above:Order Comment: Specimen Type: BLOOD SPECIMENOrdering Facility: [facility] Address: [address] [place], [place] [address]Performed By: #### 56362-6 ####KARINA LABORATORYCLIA [id number] [address] (RBC) [Entitic vol]99.6 eWLkovxu08.0-100.0[facility] Comment on above:Order Comment: Specimen Type: BLOOD SPECIMENOrdering Facility: [facility] Address: [address] [place], [place] [address]Performed By: #### 62338-8 ####KARINA LABORATORYCLIA [id number] [place] [address] [place] AMERICAMonocytes (Bld) [#/Vol] 0.11 10*3/uLNormal<0.87[facility] on above:Order Comment: Specimen Type: BLOOD SPECIMENOrdering Facility: [facility] Address: [address] [place], [place] [address]Performed By: #### 15619-6 ####KARINA LABORATORYCLIA [id number] [place] [id number] [place] AMERICAMonocytes/100 WBC (Bld)1.0 %NormalHarrison Community Hospital on above:Order Comment: Specimen Type: BLOOD SPECIMENOrdering Facility: [facility] Address: [address] [place], [place] [address]Performed By: #### 85237-9 ####KARINA LABORATORYCLIA [id number] [place] [id number] [place] AMERICANeutrophils (Bld) [#/Vol]10.51 10*3/uLHigh1.45-7.50[facility] on above:Order Comment: Specimen Type: BLOOD SPECIMENOrdering Facility: [facility] Address: [address] [place], [place] [address]Performed By: #### 48272-0 ####KARINA LABORATORYCLIA [id number] [place] [id number] [place] Neutrophils/100 WBC (Bld)94.0 %NormalHarrison Community Hospital on above: Order Comment: Specimen Type: BLOOD SPECIMENOrdering Facility: [facility] Address: [address] [place], [place] [address]Performed By: #### 74926-2 ####KARINA LABORATORYCLIA [id number] [place] [id number] [place] AMERICANucleated RBC (Bld) [#/Vol] 10*3/uLNormal<0.01[facility] on above:Order Comment: Specimen Type: BLOOD SPECIMENOrdering Facility: [facility] Address: [address] [place], [place] [address]Performed By: #### 95186-2 ####KARINA LABORATORYCLIA [id number] [place] [address] [place] AMERICANucleated RBC/100 WBC (Bld) [Ratio]0.0 /100 WBCNormalCSelect Medical [facility] on above:Order Comment: Specimen Type: BLOOD SPECIMENOrdering Facility: [facility] Ad dress: [address] [place], [place] [address]Performed By: #### 93708-7 ####KARINA LABORATORYCLIA [id number] [place] [id number] [place] AMERICAPlatelet mean volume (Bld) [Entitic vol]10.1 fLNormal 9.0-12.7CSelect Medical Specialty Hospital [facility] on above:Order Comment: Specimen Type: BLOOD SPECIMENOrdering Facility: [facility] Address: [address] [place], [place] [address]Performed By: #### 55441-4 ####KARINA LABORATORYCLIA [id number] [place] [address] [place] AMERICAPlatelets (Bld) [#/Vol]288 10*3/sXPnvodp556-558KkyejfbkuWyandot Memorial Hospital Comment on above:Order Comment: Specimen Type: BLOOD SPECIMENOrdering Facility: [facility] Address: [address] [place], [place] [address]Performed By: #### 17253-2 ####KARINA LABORATORYCLIA [id number] [place] [id number] [place] AMERICAPlatelets Estimate (Bld) [#/Vol]AdequateNormalClevelUNC Health Rex Holly SpringsCombronson lakeview hospital on above:Order Comment: Specimen Type: BLOOD SPECIMENOrdering Facility: [facility] Address: [address] [place], [place] [address]Performed By: #### 37361-9 ####KARINA LABORATORYCLIA [id number] [place] [id number] [place] AMERICARBC (Bld) [#/Vol]2.32 10*6/uLLow4.20-6.00 [facility] ClevelandComment on above:Order Comment: Specimen Type: BLOOD SPECIMENOrdering Facility: [facility] Address: [address] [place], [place] [address]Performed By: #### 88665-5 ####DEONROLF LABORATORYCLIA [id number] [place] [address] [place] AMERICARED CELL MORPHReviewed: see results of individual morphologiesNormal [facility] on above:Order Comment: Specimen Type: BLOOD SPECIMENOrdering Facility: [facility] Address: [address] [place], [place] [address]Performed By: #### 06614-3 ####KARINA LABORATORYCLIA [id number] [place] [address] [place] AMERICAWBC (Bld) [#/Vol]11.18 10*3/uLHigh3.70-11.00[facility] Comment on above:Order Comment: Specimen Type: BLOOD SPECIMENOrdering Facility: [facility] Address: [address] [place], [place] [address]Performed By: #### 70610-0 ####KARINA LABORATORYCLIA [id number] [place] [address] [place] COSHOCTON REGIONAL MEDICAL CENTERWBC Left Shift Ql (Bld) PresentNormalCSelect Medical Special[facility] on above:Order Comment: Specimen Type: BLOOD SPECIMENOrdering Facility: [facility] Ad dress: [address] [place], [place] [address]Performed By: #### 12083-7 ####KARINA LABORATORYCLIA [id number] [place] [address] [place] AMERICACCF COMP METAB 2000 PNL SERPLon 45-38-1354Dvvypmi [Mass/Vol]2.5 g/dLLow3.9 - 4.9 g/dLNOMS HealthcareALP [Catalytic [...] - 1.22 mg/dL NOMS HealthcareEGFRCR SERPLBLD CKD-EPI 8153465- PINFNOWV HealthcareComment on above:Estimated Glomerular Filtration Rate (eGFR) [...] actual GFR.Glucose [Mass/Vol] 98 mg/dL74 - 99 mg/dLNOWV HealthcareComment on above:The [place] Diabetes Association (ADA) provides guidance for cutoff [...] Standards of Medical Care in Diabetes 2016, [place] Diabetes Association. Diabetes Care. 2016.39(Suppl 1). Potassium [Moles/Vol]5.1 mmol/L3.7 - 5.1 mmol/LNOMS HealthcareSodium [Moles/Vol] 133 mmol/QWxz630 - 144 mmol/LNOMS HealthcareUrea nitrogen [Mass/Vol]21 mg/dL9 - 24 mg/dLNOMS HealthcareCCF CRP SERPL-MCNCon 39-47-7691AVC CRP SERPL-MCNC18.4 mg/dLHighNINF - 0.9 mg/dLNOThe Rehabilitation Institute MAGNESIUM SERPL-MCNCon 01-15-2025 Magnesium [Mass/Vol]1.5 mg/dLLow1.7 - 2.3 mg/dLSaint Mary's Hospital of Blue SpringsCRP SerPl-mCncon 06-05-2392LFK [Mass/Vol]18.4 mg/dLHigh<0.9CPomerene HospitalCombronson lakeview hospital on above:Order Comment: Specimen Type: BLOOD SPECIMENOrdering Facility: [facility] Address: [address] [place] [address] Performed By: #### 1988-5 ####KARINA LABORATORYCLIA [id number] [place] [address] [place] AMERICAComprehensive metabolic 2000 panelon 39-83-9287Wffljss [Mass/Vol]2.5 g/dLLow3.9-4.9CPomerene Hospital Comment on above:Order Comment: Specimen Type: BLOOD SPECIMENOrdering Facility: [facility] Address: [address] [place], [place] [address]Performed By: #### 49330-7 ####KARINA LABORATORYCLIA [id number] [place] [address] [place] AMERICAALP [Catalytic activity/Vol]266 U/MKjsq70-678IvcpsbrxoWyandot Memorial HospitalCombronson lakeview hospital on above:Order Comment: Specimen Type: BLOOD SPECIMENOrdering Facility: [facility] Address: [address] [place], [place] [address]Performed By: #### 19035-2 ####KARINA LABORATORYCLIA [id number] [place] [id number] [place] AMERICAALT [Catalytic activity/Vol]23 U/HWgtlhi13-86 [facility] HospitalCombronson lakeview hospital on above:Order Comment: Specimen Type: BLOOD SPECIMENOrdering Facility: [facility] Address: [address] [place], [place] [address]Performed By: #### 63072-7 ####KARINA LABORATORYCLIA [id number] [place] [address] [place] AMERICAAnion gap [Moles/Vol]9 mmol/LNormal8-15[facility] HospitalCombronson lakeview hospital on above:Order Comment: Specimen Type: BLOOD SPECIMENOrdering Facility: [facility] Address: [address] [place] [address] Performed By: #### 52305-1 ####KARINA LABORATORYCLIA [id number] [place] [id number] [place] AMERICAAST [Catalytic activity/Vol]28 U/FSlwccf87-64HkpbasqrmWyandot Memorial HospitalCombronson lakeview hospital on above:Order Comment: Specimen Type: BLOOD SPECIMENOrdering Facility: [facility] Ad dress: [address] [place], [place] [address]Performed By: #### 57657-5 ####KARINA LABORATORYCLIA [id number] [place] [address] [place] AMERICABilirubin [Mass/Vol]0.3 mg/dLNormal0.2-1.3CSelect Medical Specialty Hospital [facility] on above:Order Comment: Specimen Type: BLOOD SPECIMENOrdering Facility: [facility] Address: [address] [place], [place] [address]Performed By: #### 88987-0 ####KARINA LABORATORYCLIA [id number] [place] [id number] [place] AMERICACalcium [Mass/Vol]8.6 mg/dLNormal8.5-10.2CPomerene Hospital Comment on above:Order Comment: Specimen Type: BLOOD SPECIMENOrdering Facility: [facility] Address: [address] [place] [address]Axtziwjdm By: #### 89766-9 ####KARINA LABORATORYCLIA [id number] [place] [id number] [place] AMERICAChloride [Moles/Vol]97 mmol/MPux18-673NkyjtluwcHarrison Community Hospital on above:Order Comment: Specimen Type: BLOOD SPECIMENOrdering Facility: [facility] Address: [address] [place], [place] [address]Performed By: #### 15034-6 ####DEONROLF LABORATORYCLIA [id number] [place] [address] [place] AMERICACO2 [Moles/Vol]27 mmol/COxnpdr96-11BqfkiqevzHarrison Community Hospital on above:Order Comment: Specimen Type: BLOOD SPECIMENOrdering Facility: [facility] Address: [address] [place], [place] [address]Performed By: #### 80974-8 ####[facility]ONCLEVEL[facility] LABORATORYCLIA [id number] [place] [address] [place] AMERICACreatinine [Mass/Vol]0.62 mg/dLLow0.73-1.22[facility] Comment on above:Order Comment: Specimen Type: BLOOD SPECIMENOrdering Facility: [facility] Address: [address] [place], [place] [address]Performed By: #### 03729-0 ####[facility]ONCLEVEL[facility] LABORATORYCLIA [id number] [place] [address] [place] AMERICAeGFRcr SerPlBld CKD-EPI 3816784 mL/min/1.73m???Normal>=60[facility] on above: Order Comment: Specimen Type: BLOOD SPECIMENOrdering Facility: [facility] Address: [address] [place], [place] [address]Result Comment: Estimated Glomerular Filtration Rate (eGFR) is calculated using the 2020 CKD-EPI creatinine equation. This equation utilizes serum creatinine, sex, and age as parameters. The creatinine assay has traceable calibration to isotope dilution-mass spectrometry. Refer to KDIGO guidelines for clinical interpretation. In patients with unstable renal function, e.g. those with acute kidney injury, the eGFR may not accurately reflect actual GFR.Performed By: #### 62994-5 ####KARINA LABORATORYCLIA [id number] [place] [id number] [place] AMERICAGlucose [Mass/Vol]98 mg/zTThqpsh21-59XtkssfszqHarrison Community Hospital on above:Order Comment: Specimen Type: BLOOD SPECIMENOrdering Facility: [facility] Address: [address] [place], [place] [address]Result Comment: The [place] Diabetes Association (ADA) provides guidance for cutoff [...] Standards of Medical Care in Diabetes 2016, [place] Diabetes Association. Diabetes Care. 2016.39(Suppl 1). Performed By: #### 38968-4 ####KARINA LABORATORYCLIA [id number] [place] [address] [place] AMERICAPotassium [Moles/Vol]5.1 mmol/LNormal3.7-5.1CSelect Medical Specialty Hospital [facility] on above:Order Comment: Specimen Type: BLOOD SPECIMENOrdering Facility: [facility] Address: [address] [place], [place] [address]Performed By: #### 48384-9 ####KARINA LABORATORYCLIA [id number] [place] [id number] [place] AMERICAProtein [Mass/Vol]5.6 g/dLLow6.3-8.0[facility] on above:Order Comment: Specimen Type: BLOOD SPECIMENOrdering Facility: [facility] Address: [address] [place], [place] [address]Performed By: #### 25817-9 ####KARINA LABORATORYCLIA [id number] [place] [id number] [place] AMERICASodium [Moles/Vol]133 mmol/JRrd434-473KjyzeeulnHarrison Community Hospital on above:Order Comment: Specimen Type: BLOOD SPECIMENOrdering Facility: [facility] Address: [address] [place] [address] Performed By: #### 78119-1 ####KARINA LABORATORYCLIA [id number] [place] [id number] [place] AMERICAUrea nitrogen [Mass/Vol]21 mg/dLNormal9-24[facility] HospitalCombronson lakeview hospital on above:Order Comment: Specimen Type: BLOOD SPECIMENOrdering Facility: [facility] Address: [address] [place], [place] [address]Performed By: #### 87890-8 ####[facility]ONCLEVELAND [facility] LABORATORYCLIA [id number] [place] [address] [place] AMERICAGGT SerPl-cCncon 19-45-3769Jjxwo glutamyl transferase [Catalytic activity/Vol]156 U/MQjfi26-14UjxgidvkpWyandot Memorial Hospital Comment on above:Order Comment: Specimen Type: BLOOD SPECIMENOrdering Facility: [facility] Address: [address] [place], [place] [address]Performed By: #### 2324-2 ####[facility] LABCLIA [id number] [address] [address] [place] Magnesium SerPl-mCncon 63-52-9072Ybdzthxnp [Mass/Vol]1.5 mg/dLLow1.7-2.3 [facility] on above:Order Comment: Specimen Type: BLOOD SPECIMENOrdering Facility: [facility] Address: [address] [place], [place] [address]Performed By: #### 80026-3 ####KARINA LABORATORYCLIA [id number] [address] Panel Informationon 44-70-6155Yweohfoceqvury and review of laboratory resultsAbnormalNOMS HealthcareSpecimen Type: BLOOD SPECIMEN Ordering Facility: [facility] Address: [address] [place] [address] Original Ordering Provider: DAVID BRAVOSaint Mary's Hospital of Blue SpringsTacrolimus Bld-ncon 54-73-5925Sjdgyeeyhi (Bld) [Mass/Vol]10.6 ng/mLNormal5.0-20.0 [facility] on above:Order Comment: Specimen Type: BLOOD SPECIMENOrdering Facility: [facility] Address: [address] [place], [place] [address]Result Comment: Individualized target levels for a given [...] situation. Test performed by chemiluminescent immunoassay using Kup[employer] Al[employer] i.Performed By: #### 42169-4 ####[facility] LABIA [id number] [place] [address] [place] CASE MANAGEMon 32-93-0066UVEH MANAGEMNormalMemorial Health [facility] W Auto Differential panel (Bld)on 35-48-9740Vapjfucfjbot Ql (Bld)PresentNormalCSelect Medical [facility] on above:Order Comment: Specimen Type: BLOOD SPECIMENOrdering Facility: [facility] Address:[address] [place], [place] [address]Performed By: #### 35263-9 ####[facility] HEALTH CENTERIA [id number] [place] [address] [place] COSHO[facility] REGIONAL MEDICAL CENTERBasophils (Bld) [#/Vol]0.00 10*3/uLNormal<0.11CPomerene Hospital Comment on above:Order Comment: Specimen Type: BLOOD SPECIMENOrdering Facility: [facility] Address:[address] [place] [address] Performed By: #### 34487-3 ####[facility] CENTERIA [id number] [place] [address] [place] Basophils/100 WBC (Bld)0.0 %NormalHarrison Community Hospital on above: Order Comment: Specimen Type: BLOOD SPECIMENOrdering Facility: [facility] Address:[address] [place], [place] [address]Performed By: #### 26543- 8 ####[facility] LABIA [id number] [place] [address] [place] AMERICADifferential cell count method Nom (Bld)ManualNormalCSelect Medical Specialty [facility] on above:Order Comment: Specimen Type: BLOOD SPECIMENOrdering Facility: [facility] Address:[address] [place], [place] [address]Performed By: #### 90234-4 ####[facility] LABCLIA [id number] [place] [id number] [place] AMERICAEosinophils (Bld) [#/Vol]0.12 10*3/uLNormal<0.46[facility] on above:Order Comment: Specimen Type: BLOOD SPECIMENOrdering Facility: [facility] Address:[address] [place], [place] [address]Performed By: #### 38575-6 ####[facility] LABIA [id number] [place] [address] [place] AMERICAEosinophils/100 WBC (Bld)1.0 % NormalHarrison Community Hospital on above:Order Comment: Specimen Type: BLOOD SPECIMENOrdering Facility: [facility] Address:[address] [place], [place] [address]Performed By: #### 95037-3 ####[facility] LABIA [id number] [place] [id number] [place] AMERICAErythrocyte distribution width (RBC) [Ratio]19.6 %High11.5-15.0 [facility] on above:Order Comment: Specimen Type: BLOOD SPECIMENOrdering Facility: [facility] Address:[address] [place], [place] [address]Performed By: #### 61560-9 ####[facility] LABIA [id number] [place] [id number] [place] AMERICAHematocrit (Bld) [Volume fraction]24.2 %Low39.0-51.0[facility] on above:Order Comment: Specimen Type: BLOOD SPECIMENOrdering Facility: [facility] Address:[address] [place], [place] [id number] By: #### 75784-0 ####[facility] LABIA [id number] [address] [place] Hemoglobin (Bld) [Mass/Vol]7.6 g/dLLow13.0-17.0[facility] on above:Order Comment: Specimen Type: BLOOD SPECIMENOrdering Facility: [facility] Address:[address] [place] [address] Performed By: #### 82233-4 ####[facility] [id number] [address] Lymphocytes (Bld) [#/Vol]1.11 10*3/uLNormal1.00-4.00[facility] Comment on above:Order Comment: Specimen Type: BLOOD SPECIMENOrdering Facility: [facility] Address:[address] [place] [address] Performed By: #### 67979-2 ####[facility]IA [id number] [address] [facility] Lymphocytes/100 WBC (Bld)9.0 %NormalHarrison Community Hospital on above: Order Comment: Specimen Type: BLOOD SPECIMENOrdering Facility: [facility] Address:[address] [place], [place] [address]Performed By: #### 43141- 8 ####[facility] LABIA [id number] [place] [id number] [facility] HOSPITALMCH (RBC) [Entitic mass]31.8 pg Ucnpld42.0-34.0[facility] on above:Order Comment: Specimen Type: BLOOD SPECIMENOrdering Facility: [facility] Address:[address] [place], [place] [address]Performed By: #### 46907-0 ####[facility]IA [id number] [place] [id number] [place] AMERICAMCHC (RBC) [Mass/Vol]31.4 g/dL Mtskrl09.5-36.0[facility] on above:Order Comment: Specimen Type: BLOOD SPECIMENOrdering Facility: [facility] Address:[address] [place], [place] [address]Performed By: #### 16915-1 ####[facility] LABCLIA [id number] [address]ETMCV (RBC) [Entitic vol]101.3 fL High80.0-100.0[facility] on above:Order Comment: Specimen Type: BLOOD SPECIMENOrdering Facility: [facility] Address:[address] [place], [place] [address]Performed By: #### 50949-3 ####[facility] LABCLIA [id number] [address] STATES OF AMERICAMetamyelocytes/100 WBC (Bld)1.0 %NormalHarrison Community Hospital on above:Order Comment: Specimen Type: BLOOD SPECIMENOrdering Facility: [facility] Address:[address] [place], [place] [address]Performed By: #### 07594-6 ####[facility] LABCLIA [id number] [place] [address] [place] Monocytes (Bld) [#/Vol]0.99 10*3/uLHigh<0.87[facility] on above:Order Comment: Specimen Type: BLOOD SPECIMENOrdering Facility: [facility] Address:[address] [place], [place] [address]Performed By: #### 95178-6 ####[facility] LABCLIA [id number] [address] STATES OF AMERICAMonocytes/100 WBC (Bld)8.0 %NormalHarrison Community Hospital on above:Order Comment: Specimen Type: BLOOD SPECIMENOrdering Facility: [facility] Address:[address] [place], [place] [address]Performed By: #### 12665-3 ####[facility] LABCLIA [id number] [place] [address] [place] AMERICANeutrophils (Bld) [#/Vol]10.01 10*3/uLHigh1.45-7.50[facility] on above:Order Comment: Specimen Type: BLOOD SPECIMENOrdering Facility: [facility] Address:[address] [place], [place] [address]Performed By: #### 43296-0 ####[facility] [id number] [place] [address] [place] AMERICANeutrophils/100 WBC (Bld)81.0 % NormalHarrison Community Hospital on above:Order Comment: Specimen Type: BLOOD SPECIMENOrdering Facility: [facility] Address:[address] [place], [place] [address]Performed By: #### 41489-3 ####[facility] [id number] [place] [address] [place] AMERICANucleated RBC (Bld) [#/Vol]10*3/uLNormal<0.01[facility] on above:Order Comment: Specimen Type: BLOOD SPECIMENOrdering Facility: [facility] Address:[address] [place], [place] [address]Performed By: #### 46479-6 ####[facility] LABCLIA [id number] [place] [address] [place] Nucleated RBC/100 WBC (Bld) [Ratio]0.0 /100 WBCNormalCPomerene Hospital Comment on above:Order Comment: Specimen Type: BLOOD SPECIMENOrdering Facility: [facility] Address:[address] [place] [address] Performed By: #### 81703-3 ####[facility] LABCLIA [id number] [place] [address] [place] Ovalocytes LM Ql (Bld)FewNormalCSelect Medical [facility] on above:Order Comment: Specimen Type: BLOOD SPECIMENOrdering Facility: [facility] Address:[address] [place], [place] [address]Performed By: #### 65844- 8 ####[facility] LABCLIA [id number] [address], [facility]95 [place] AMERICAPlatelet mean volume (Bld) [Entitic vol]9.9 fLNormal9.0-12.7CSelect Medical Specialty [facility] on above: Order Comment: Specimen Type: BLOOD SPECIMENOrdering Facility: [facility] Address:[address] [place], [place] [address]Performed By: #### 59326- 8 ####[facility] LABCLIA [id number] [place] [address] [place] AMERICAPlatelets (Bld) [#/Vol]322 10*3/hANkijjc471-563FkplrunydHarrison Community Hospital on above:Order Comment: Specimen Type: BLOOD SPECIMENOrdering Facility: [facility] Address:[address] [place], [place] [address]Performed By: #### 99577-4 ####[facility] LABCLIA [id number] [place] [address] [place] COSHOCTON REGIONAL MEDICAL CENTERPlatelets Estimate (Bld) [#/Vol] AdequateNormalCSelect Medical Specialty [facility] on above:Order Comment: Specimen Type: BLOOD SPECIMENOrdering Facility: [facility] Address:[address] [place], [place] [address]Performed By: #### 84468-2 ####[facility] LABCLIA [id number] [place] [address] [place] AMERICAPolychromasia LM Ql (Bld)SlightNormalCSelect Medical Specialty [facility] on above:Order Comment: Specimen Type: BLOOD SPECIMENOrdering Facility: [facility] Address:[address] [place], [place] [address]Performed By: #### 57515-7 ####[facility] LABCLIA [id number] [place] [address] [place] RBC (Bld) [#/Vol]2.39 10*6/uLLow4.20-6.00[facility] on above:Order Comment: Specimen Type: BLOOD SPECIMENOrdering Facility: [facility] Address:[address] [place], [place] [address]Performed By: #### 10353-9 ####[facility] [id number] [address]ETRED CELL MORPH Reviewed: see results of individual [facility] Comment on above:Order Comment: Specimen Type: BLOOD SPECIMENOrdering Facility: [facility] Address:[address] [place] [address] Performed By: #### 68330-2 ####[facility]IA [id number] [place] [address] [place] Target cells LM Ql (Bld)[facility] on above: Order Comment: Specimen Type: BLOOD SPECIMENOrdering Facility: [facility] Address:[address] [place], [place] [address]Performed By: #### 29915- 8 ####[facility] [id number] [place] [address] [place] AMERICAWBC (Bld) [#/Vol]12.36 10*3/uL High3.70-11.00[facility] on above:Order Comment: Specimen Type: BLOOD SPECIMENOrdering Facility: [facility] Address:[address] [place], [place] [address]Performed By: #### 04573-2 ####[facility]IA [id number] [place] [address] [place] AMERICAWBC Left Shift Ql (Bld)PresentNormalCSelect Medical [facility] on above:Order Comment: Specimen Type: BLOOD SPECIMENOrdering Facility: [facility] Address:[address] [place], [place] [address]Performed By: #### 28177-1 ####[facility] LABCLIA [id number] [address] [place] [address] [place] CNDSon 41-55-2600RESWZtsfajOlmsoznyu Clinic ClevelandComprehensive metabolic 2000 panelon 05-10-8531Hhbslxh [Mass/Vol]2.3 g/dLLow3.9-4.9ClevelUC Medical Center on above:Order Comment: Specimen Type: BLOOD SPECIMENOrdering Facility: [facility] Address:[address] [place], [place] [address]Performed By: #### 10736-4, 11135-8, 2777-1 ####[facility] LABCLIA [id number] [address] [place] AMERICAALP [Catalytic activity/Vol]283 U/MKdjx05-302JhtwdrhriHarrison Community Hospital on above:Order Comment: Specimen Type: BLOOD SPECIMENOrdering Facility: [facility] Address:[address] [place], [place] [address]Performed By: #### 59073-0, 68551-3, 2777-1 ####[facility] LABCLIA [id number] VILLE [address] [place] AMERICAALT [Catalytic activity/Vol]27 U/YBbpodh91-22HrvfhgppyHarrison Community Hospital on above:Order Comment: Specimen Type: BLOOD SPECIMENOrdering Facility: [facility] Address:[address] [place], [place] [address]Performed By: #### 29072-2, 29246-5, 2777-1 ####[facility] LABCLIA [id number] [place] [id number] [place] AMERICAAnion gap [Moles/Vol]11 mmol/LNormal8-15[facility] on above:Order Comment: Specimen Type: BLOOD SPECIMENOrdering Facility: [facility] Address:[address] [place], [place] [address]Performed By: #### 44999-2, , 2776-04 ####[facility] LABCLIA [id number] AVENUENOVATO [place] [address] [place] AMERICAAST [Catalytic activity/Vol]28 U/XBuoyln79-92YgemclgtkHarrison Community Hospital on above:Order Comment: Specimen Type: BLOOD SPECIMENOrdering Facility: [facility] Address:[address] [place], [place] [address]Performed By: #### 24564-1, , 2776-04 ####[facility] LABCLIA [id number] [address] [place] AMERICABilirubin [Mass/Vol]0.2 mg/dLNormal0.2-1.3CSelect Medical Specialty [facility] on above:Order Comment: Specimen Type: BLOOD SPECIMENOrdering Facility: [facility] Address:[address] [place], [place] [address]Performed By: #### 71224-4, , 2776-04 ####[facility] LABCLIA [id number] [place] [id number] [place] AMERICACalcium [Mass/Vol]8.5 mg/dLNormal8.5-10.2CSelect [facility] on above:Order Comment: Specimen Type: BLOOD SPECIMENOrdering Facility: [facility] Address:[address] [place], [place] [address]Performed By: #### 98006-2, , 2776-04 ####[facility] LABCLIA [id number] AVENUENOVATO COMMUNITY HOSPITALK [place] [address] [place] AMERICAChloride [Moles/Vol]101 mmol/LLoaish97-848HqejpoqskHarrison [facility] Hospital on above:Order Comment: Specimen Type: BLOOD SPECIMENOrdering Facility: [facility] Address:[address] [place], [place] [address]Performed By: #### 21355-2, , 2776-04 ####[facility] LABIA [id number] [address] [place] AMERICACO2 [Moles/Vol]23 mmol/JMomstd79-87RkvbmrsxjWyandot Memorial Hospital Comment on above:Order Comment: Specimen Type: BLOOD SPECIMENOrdering Facility: [facility] Address:[address] [place] [address] Performed By: #### 26477-1, , 2776-04 ####[facility] [id number] VILLE [address] [place] AMERICACreatinine [Mass/Vol]0.71 mg/dLLow0.73-1.22[facility] Comment on above:Order Comment: Specimen Type: BLOOD SPECIMENOrdering Facility: [facility] Address:[address] [place] [address] Performed By: #### 00161-6, , 2776-04 ####[facility] [id number] VILLE [address] [place] AMERICAeGFRcr SerPlBld CKD-EPI 575139 mL/min/1.73m???Normal>=60[facility] HospitalComment on above:Order Comment: Specimen Type: BLOOD SPECIMENOrdering Facility: [facility] Address:[address] [place], [place] [address]Result Comment: Estimated Glomerular Filtration Rate (eGFR) is [...] accurately reflect actual GFR. Performed By: #### 58564-7, 68608-2, 2777-1 ####[facility] LABIA [id number] [address] [place] AMERICAGlucose [Mass/Vol]110 mg/eHGajg60-67JjicbxevdHarrison Community Hospital on above:Order Comment: Specimen Type: BLOOD SPECIMENOrdering Facility: [facility] Address:[address] [place], [place] [address]Result Comment: The [place] Diabetes Association (ADA) provides guidance for cutoff [...] Standards of Medical Care in Diabetes 2016, [place] [employer]. Diabetes Care. 2016.39(Suppl 1).Performed By: #### 93741-6, 36288-0, 2776- ####[facility]IA [id number] V[place] [address] [place] AMERICAPotassium [Moles/Vol]4.9 mmol/LNormal3.7-5.1 [facility] on above:Order Comment: Specimen Type: BLOOD SPECIMENOrdering Facility: [facility] Address:[address] [place], [place] [address]Performed By: #### 20268-8, 86523-3, 2776- ####[facility] LABWASHINGTON [facility] [id number] [address] [place] AMERICAProtein [Mass/Vol]5.5 g/dLLow6.3-8.0[facility] on above:Order Comment: Specimen Type: BLOOD SPECIMENOrdering Facility: [facility] Address:[address] [place], [place] [address]Performed By: #### 01818-7, 60492-7, 2777- ####[facility] LABCLIA [id number] [address] [address] [place] AMERICASodium [Moles/Vol]135 mmol/WSnk012-212DgblhaldkHarrison Community Hospital on above:Order Comment: Specimen Type: BLOOD SPECIMENOrdering Facility: [facility] Address:[address] [place], [place] [address]Performed By: #### 46836-0, 24567-8, 277- ####[facility] LABIA [id number] [address] [place] AMERICAUrea nitrogen [Mass/Vol]20 mg/dLNormal9-24 [facility] HospitalComment on above:Order Comment: Specimen Type: BLOOD SPECIMENOrdering Facility: [facility] Address:[address] [place], [place] [address]Performed By: #### 66532-1, 92835-3, 27710-15 ####[facility] LABCLIA [id number] [address] [place] AMERICAMagnesium SerPl-mCncon 01-52-5539Moswcybtx [Mass/Vol]1.7 mg/dLNormal1.7-2.3CPomerene HospitalCombronson lakeview hospital on above:Order Comment: Specimen Type: BLOOD SPECIMENOrdering Facility: [facility] Address:[address] [place] [address]Cfgpcngpy By: #### 95284- 8, 48418-9, 2777 ####[facility] LABIA [id number] VILLE [address] [place] AMERICAPT panel Coag (PPP)on 11-87-7542XHE Coag (PPP) [Relative time]Normal0.9-1.3CPomerene Hospital Comment on above:Order Comment: Specimen Type: BLOOD SPECIMENOrdering Facility: [facility] Address:[address] [place], [place] [address]Result Comment: Disregard results. Specimen incorrectly identified.Corrected result: Previously reported as 1.1 on 01/14/2025 at 6:12 PM EDT.Performed By: #### 61021- 0 ####[facility] LABCLIA [id number] [place] [id number] [place] [facility]HOCT[facility] REGIONAL MEDICAL CENTERPT Coag (PPP) [Time]Normal 9.7-13.0[facility] on above:Order Comment: Specimen Type: BLOOD SPECIMENOrdering Facility: [facility] Address:[address] [place], [place] [address]Result Comment: Disregard results. Specimen incorrectly identified.Corrected result: Previously reported as 12.3 sec on 01/14/2025 at 6:12 PM EDT.Performed By: #### 30995-9 ####[facility] LABCLIA [id number] [address] OF AMERICAPhosphate SerPl-Berwick Hospital Centeron 33-25-6929Matdeyfxr [Mass/Vol]4.3 mg/dL Normal2.7-4.8CSelect Medical Specialty [facility] on above:Order Comment: Specimen Type: BLOOD SPECIMENOrdering Facility: [facility] Address:[address] [place], [place] [address]Performed By: #### 68563-5, 09282-9, 2777-1 ####[facility] LABCLIA [id number] [address] OF COSHOCT[facility] REGIONAL MEDICAL CENTERTHERAPY NTon 93-21-7281TWGPZBI NT NormalWyandot Memorial HospitalTHERAPY NTNormalClevelUNC Health Rex [facility] Tacrolimus Bld-mCncon 43-69-5344Wrznliehdk (Bld) [Mass/Vol]9.0 ng/mLNormal 5.0-20.0[facility] on above:Order Comment: Specimen Type: BLOOD SPECIMENOrdering Facility: [facility] Address:[address] [place], [place] [address]Result Comment: Individualized target levels for a given [...] situation. Test performed by chemiluminescent immunoassay using KupiBonus Alinity i.Performed By: #### 91692-9 ####[facility] LABCLIA [id number] [place] [address] [place] CBC W Auto Differential panel (Bld)on 29-10-4746Cavbmsoxwfaw Ql (Bld)Present NormalHarrison Community Hospital on above:Order Comment: Specimen Type: BLOOD SPECIMENOrdering Facility: [facility] Address:[address] [place], [place] [address]Performed By: #### 83584-2 ####[facility] LABIA [id number] [place] [address] [place] [facility]IONAL MEDICAL CENTERBasophils (Bld) [#/Vol]0.00 10*3/uLNormal<0.11ClevelUC Medical Center on above:Order Comment: Specimen Type: BLOOD SPECIMENOrdering Facility: [facility] Address:[address] [place], [place] [address]Performed By: #### 69174-1 ####[facility] LABIA [id number] [place] [address] [place] Basophils/100 WBC (Bld)0.0 %NormalHarrison Community Hospital on above: Order Comment: Specimen Type: BLOOD SPECIMENOrdering Facility: [facility] Address:[address] [place], [place] [address]Performed By: #### 22136- 8 ####[facility] LABIA [id number] [place] [address] [place] [facility]AL MEDICAL CENTERDifferential cell count method Nom (Bld)ManualNormalClevelUC Medical Center on above:Order Comment: Specimen Type: BLOOD SPECIMENOrdering Facility: [facility] Address:[address] [place], [place] [address]Performed By: #### 47214-8 ####[facility]IA [id number] [place] [address] [place] AMERICAEosinophils (Bld) [#/Vol]0.00 10*3/uLNormal<0.46[facility] on above:Order Comment: Specimen Type: BLOOD SPECIMENOrdering Facility: [facility] Address:[address] [place], [place] [address]Performed By: #### 55048-8 ####[facility] LABIA [id number] [place] [address] [place] AMERICAEosinophils/100 WBC (Bld)0.0 % NormalHarrison Community Hospital on above:Order Comment: Specimen Type: BLOOD SPECIMENOrdering Facility: [facility] Address:[address] [place], [place] [address]Performed By: #### 76680-9 ####[facility] LABIA [id number] [place] [address] [place] AMERICAErythrocyte distribution width (RBC) [Ratio]19.6 %High11.5-15.0 [facility] on above:Order Comment: Specimen Type: BLOOD SPECIMENOrdering Facility: [facility] Address:[address] [place], [place] [address]Performed By: #### 45748-3 ####[facility] LABIA [id number] [place] [address] [place] AMERICAHematocrit (Bld) [Volume fraction]23.8 %Low39.0-51.0[facility] on above:Order Comment: Specimen Type: BLOOD SPECIMENOrdering Facility: [facility] Address:[address] [place], [place] [address]Performed By: #### 86193-0 ####[facility] LABIA [id number] [place] [id number] [place] Hemoglobin (Bld) [Mass/Vol]7.5 g/dLLow13.0-17.0[facility] on above:Order Comment: Specimen Type: BLOOD SPECIMENOrdering Facility: [facility] Address:[address] [place] [address] Performed By: #### 05322-9 ####[facility] LABIA [id number] [place] [address] [place] Lymphocytes (Bld) [#/Vol]0.51 10*3/uLLow1.00-4.00[facility] Comment on above:Order Comment: Specimen Type: BLOOD SPECIMENOrdering Facility: [facility] Address:[address] [place] [address] Performed By: #### 71181-4 ####[facility] LABIA [id number] [address] [place] Lymphocytes/100 WBC (Bld)4.3 %NormalHarrison Community Hospital on above: Order Comment: Specimen Type: BLOOD SPECIMENOrdering Facility: [facility] Address:[address] [place], [place] [address]Performed By: #### 54236- 8 ####[facility] LABIA [id number] [address] (RBC) [Entitic mass]31.3 pg Lgmwur82.0-34.0[facility] on above:Order Comment: Specimen Type: BLOOD SPECIMENOrdering Facility: [facility] Address:[address] [place], [place] [address]Performed By: #### 15129-0 ####[facility] LABIA [id number] [place] [id number] [facility] (RBC) [Mass/Vol]31.5 g/dL Fdiomi17.5-36.0[facility] on above:Order Comment: Specimen Type: BLOOD SPECIMENOrdering Facility: [facility] Address:[address] [place], [place] [address]Performed By: #### 45715-8 ####[facility] LABCLIA [id number] [address] [place] [address] [place] AMERICAMCV (RBC) [Entitic vol]99.2 fL Dzwkvj17.0-100.0[facility] on above:Order Comment: Specimen Type: BLOOD SPECIMENOrdering Facility: [facility] Address:[address] [place], [place] [address]Performed By: #### 48391-7 ####[facility] LABIA [id number] [address], [facility]95 [place] AMERICAMonocytes (Bld) [#/Vol]0.83 10*3/uLNormal<0.87[facility] on above:Order Comment: Specimen Type: BLOOD SPECIMENOrdering Facility: [facility] Address:[address] [place], [place] [address]Performed By: #### 55432-9 ####[facility]IA [id number] [address], [facility]95 [place] AMERICAMonocytes/100 WBC (Bld)7.0 % NormalHarrison Community Hospital on above:Order Comment: Specimen Type: BLOOD SPECIMENOrdering Facility: [facility] Address:[address] [place], [place] [address]Performed By: #### 13770-0 ####[facility] LABCLIA [id number] [address] [place] [address] [place] AMERICAMYELO%0.9 %NormalHarrison Community Hospital on above: Order Comment: Specimen Type: BLOOD SPECIMENOrdering Facility: [facility] Address:[address] [place], [place] [address]Performed By: #### 26249- 8 ####[facility] LABCLIA [id number] [place] [address] [place] AMERICANeutrophils (Bld) [#/Vol]10.36 10*3/uLHigh1.45-7.50[facility] on above:Order Comment: Specimen Type: BLOOD SPECIMENOrdering Facility: [facility] Address:[address] [place], [place] [address]Performed By: #### 67517-8 ####[facility] LABIA [id number] [place] [address] [place] AMERICANeutrophils/100 WBC (Bld)87.8 % NormalHarrison Community Hospital on above:Order Comment: Specimen Type: BLOOD SPECIMENOrdering Facility: [facility] Address:[address] [place], [place] [address]Performed By: #### 30161-3 ####[facility] LABIA [id number] [place] [address] [place] AMERICANucleated RBC (Bld) [#/Vol]10*3/uLNormal<0.01[facility] on above:Order Comment: Specimen Type: BLOOD SPECIMENOrdering Facility: [facility] Address:[address] [place], [place] [address]Performed By: #### [id number] ####[facility] LABIA [id number] [place] [address] [place] Nucleated RBC/100 WBC (Bld) [Ratio]0.0 /100 WBCNormalCPomerene Hospital Comment on above:Order Comment: Specimen Type: BLOOD SPECIMENOrdering Facility: [facility] Address:[address] [place] [address] Performed By: #### [id number] ####[facility] LABIA [id number] [place] [address] [place] Platelet mean volume (Bld) [Entitic vol]10.0 fLNormal9.0-12.7CSelect Medical Specialty [facility] on above:Order Comment: Specimen Type: BLOOD SPECIMENOrdering Facility: [facility] Address:[address] [place], [place] [address]Performed By: #### [id number] ####[facility] LABCLIA [id number] [facility] 80 [place] [address] [place] Platelets (Bld) [#/Vol]318 10*3/cGKvynmt085-604NhjpkrelbHarrison Community Hospital on above:Order Comment: Specimen Type: BLOOD SPECIMENOrdering Facility: [facility] Address:[address] [place] [address] Performed By: #### 11394-2 ####[facility] LABCLIA [id number] [address], [facility]95 [place] Platelets Estimate (Bld) [#/Vol]AdequateNormalCSelect Medical [facility]ty [facility] on above:Order Comment: Specimen Type: BLOOD SPECIMENOrdering Facility: [facility] Address:[address] [place] [address] Performed By: #### 74864-3 ####[facility] LABCLIA [id number] [address], [facility]95 [place] Polychromasia LM Ql (Bld)SlightNormalCSelect Medical [facility] on above: Order Comment: Specimen Type: BLOOD SPECIMENOrdering Facility: [facility] Address:[address] [place], [place] [address]Performed By: #### 48727- 8 ####[facility] LABCLIA [id number] [facility] [address] [place] [address] [place] AMERICARBC (Bld) [#/Vol]2.40 10*6/uLLow 4.20-6.00[facility] on above:Order Comment: Specimen Type: BLOOD SPECIMENOrdering Facility: [facility] Address:[address] [place], [place] [address]Performed By: #### 38473-9 ####[facility] LABCLIA [id number] [address] [place] [address] [place] AMERICARED CELL MORPHReviewed: see results of individual morphologiesNoToledo Hospital on above:Order Comment: Specimen Type: BLOOD SPECIMENOrdering Facility: [facility] Address:[address] [place], [place] [address]Performed By: #### 77262-8 ####[facility] LABCLIA [id number] [address] [place] [address] [place] AMERICATarget cells LM Ql (Bld)FewNormal [facility] on above:Order Comment: Specimen Type: BLOOD SPECIMENOrdering Facility: [facility] Address:[address] [place], [place] [address]Performed By: #### 38286-9 ####[facility] LABCLIA [id number] [address], [facility]95 [place] OF AMERICAWBC (Bld) [#/Vol]11.80 10*3/uLHigh3.70-11.00[facility] Comment on above:Order Comment: Specimen Type: BLOOD SPECIMENOrdering Facility: [facility] Address:[address] [place] [address] Performed By: #### 15935-4 ####[facility] LABCLIA [id number] [address] [place] [address] [place] WBC Left Shift Ql (Bld)[facility] on above: Order Comment: Specimen Type: BLOOD SPECIMENOrdering Facility: [facility] Address:[address] [place], [place] [address]Performed By: #### 16398- 8 ####[facility] LABCLIA [id number] [address], [facility]95 [place] OF AMERICACONSULT PROGon 96-30-5063EFTJCNO PROGNormalWyandot Memorial HospitalCONSULT PROGNormalWyandot Memorial Hospital CONSULT PROGNormalWyandot Memorial HospitalCYTOMEGALOVIRUS (CMV) DNA, QUANTITATIVE PCR, PLASMAon 01-13-5260TAO DNA JESSICA+probe [#/Vol]352 IU/mLProvidence [facility] on above:Order Comment: Specimen Type: BLOOD SPECIMENOrdering Facility: [facility] Address:[address] [place], [place] [address]Performed By: #### CMVQNT ####[facility] LABCLIA [id number] [place] [address] [place] AMERICACMV DNA JESSICA+probe [Log #/Vol]2.55 log IU/mLSt. John of God [facility] Comment on above:Order Comment: Specimen Type: BLOOD SPECIMENOrdering Facility: [facility] Address:[address] [place] [address] Performed By: #### CMVQNT ####[facility] LABCLIA [id number] [place] [address] [place] CMV DNA JESSICA+probe Qn (P)DetectedAbnormalNot DetectedWyandot Memorial Hospital Comment on above:Order Comment: Specimen Type: BLOOD SPECIMENOrdering Facility: [facility] Address:[address] [place] [address] Performed By: #### CMVQNT ####[facility] LABCLIA [id number] [place] [address] [place] Comprehensive metabolic 2000 panelon 39-07-7401Lkbsvht [Mass/Vol]2.1 g/dLLow 3.9-4.9CSelect Medical Specialty [facility] on above:Order Comment: Specimen Type: BLOOD SPECIMENOrdering Facility: [facility] Address:[address] [place], [place] [address]Performed By: #### 37279-7, 02188-3, 2777-1 ####[facility] LABCLIA [id number] [address] [place] AMERICAALP [Catalytic activity/Vol]288 U/QTkuw22-639MsrechlpjHarrison Community Hospital on above:Order Comment: Specimen Type: BLOOD SPECIMENOrdering Facility: [facility] Address:[address] [place], [place] [address]Performed By: #### 96223-4, 48425-7, 2776-04 ####[facility] LABCLIA [id number] [address] [place] AMERICAALT [Catalytic activity/Vol]28 U/BBnyvim36-18KqpoijtqnHarrison Community Hospital on above:Order Comment: Specimen Type: BLOOD SPECIMENOrdering Facility: [facility] Address:[address] [place], [place] [address]Performed By: #### 74558-7, 01739-4, 2776-04 ####[facility] LABCLIA [id number] VILLE [address] [place] AMERICAAnion gap [Moles/Vol]10 mmol/L Normal8-15[facility] on above:Order Comment: Specimen Type: BLOOD SPECIMENOrdering Facility: [facility] Address:[address] [place], [place] [address]Performed By: #### 05509-2, 92227-4, 2776-04 ####[facility] LABCLIA [id number] VILLE [address] [place] AMERICAAST [Catalytic activity/Vol]27 U/AJihbbb64-78LxttuqkowHarrison Community Hospital on above:Order Comment: Specimen Type: BLOOD SPECIMENOrdering Facility: [facility] Address:[address] [place], [place] [address]Performed By: #### 56130-3, 39961-3, 2776-04 ####[facility] LABIA [id number] [address] [place] AMERICABilirubin [Mass/Vol]0.2 mg/dL Normal0.2-1.3CSelect Medical Specialty [facility] on above:Order Comment: Specimen Type: BLOOD SPECIMENOrdering Facility: [facility] Address:[address] [place], [place] [address]Performed By: #### 64291-8, , 2776-04 ####[facility] LABCLIA [id number] [address] [place] AMERICACalcium [Mass/Vol]8.3 mg/dLLow 8.5-10.2CSelect Medical Special[facility] on above:Order Comment: Specimen Type: BLOOD SPECIMENOrdering Facility: [facility] Address:[address] [place], [place] [address]Performed By: #### 90296-0, , 2776-04 ####[facility] LABCLIA [id number] VILLE [address] [place] AMERICAChloride [Moles/Vol]101 mmol/L Ufukxp87-052ZndunwjelHarrison Community Hospital on above:Order Comment: Specimen Type: BLOOD SPECIMENOrdering Facility: [facility] Address:[address] [place], [place] [address]Performed By: #### 18802-0, , 2776-04 ####[facility] LABIA [id number] VILLE [address] [place] AMERICACO2 [Moles/Vol]21 mmol/ULmm26-79 [facility] on above:Order Comment: Specimen Type: BLOOD SPECIMENOrdering Facility: [facility] Address:[address] [place], [place] [address]Performed By: #### 51027-5, , 2776-04 ####[facility] LABIA [id number] VILLE [address] [place] AMERICACreatinine [Mass/Vol]0.66 mg/dLLow0.73-1.22 [facility] on above:Order Comment: Specimen Type: BLOOD SPECIMENOrdering Facility: [facility] Address:[address] [place], [place] [address]Performed By: #### 93384-1, , 2776-04 ####[facility] LABCLIA [id number] VILLE [address] [place] OF AMERICAeGFRcr SerPlBld CKD-EPI 9582120 mL/min/1.73m??? Normal>=60[facility] on above:Order Comment: Specimen Type: BLOOD SPECIMENOrdering Facility: [facility] Address:[address] [place], [place] [address]Result Comment: Estimated Glomerular Filtration Rate (eGFR) is calculated using the 2020 CKD-EPI creatinine equation. This equation utilizes serum creatinine, sex, and age as parameters. The creatinine assay has traceable calibration to isotope dilution-mass spectrometry. Refer to KDIGO guidelines for clinical interpretation. In patients with unstable renal function, e.g. those with acute kidney injury, the eGFR may not accurately reflect actual GFR.Performed By: #### 32658-6, 50763-4, 2776- ####[facility] [id number] VILLE [address] [place] AMERICAGlucose [Mass/Vol]118 mg/kEZnok45-19XgruyssyeHarrison Community Hospital on above:Order Comment: Specimen Type: BLOOD SPECIMENOrdering Facility: [facility] Address:[address] [place], [place] [address]Result Comment: The [place] Diabetes Association (ADA) provides guidance for cutoff [...] Standards of Medical Care in Diabetes 2016, [place] Diabetes Association. Diabetes Care. 2016.39(Suppl 1).Performed By: #### 34751- 8, 28796-0, 2777- ####[facility] [id number] [address] [place] AMERICAPotassium [Moles/Vol] 4.4 mmol/LNormal3.7-5.1CSelect Medical Specialty [facility] on above:Order Comment: Specimen Type: BLOOD SPECIMENOrdering Facility: [facility] Address:[address] [place], [place] [address]Performed By: #### 47719-4, 42988-8, 277- ####[facility] LABCLIA [id number] [place] [address] [place] AMERICAProtein [Mass/Vol]5.3 g/dLLow 6.3-8.0[facility] on above:Order Comment: Specimen Type: BLOOD SPECIMENOrdering Facility: [facility] Address:[address] [place], [place] [address]Performed By: #### 30016-6, 46956-5, 277- ####[facility] LABCLIA [id number] VILLE [address] [facility] OF AMERICASodium [Moles/Vol]132 mmol/LLow 136-144[facility] on above:Order Comment: Specimen Type: BLOOD SPECIMENOrdering Facility: [facility] Address:[address] [place], [place] [address]Performed By: #### 02431-1, 17882-7, 2776-04 ####[facility] LABCLIA [id number] VILLE [address] [place] AMERICAUrea nitrogen [Mass/Vol]20 mg/dL Normal9-24[facility] on above:Order Comment: Specimen Type: BLOOD SPECIMENOrdering Facility: [facility] Address:[address] [place], [place] [address]Performed By: #### 81582-3, 73690-6, 2776-1 ####[facility] LABCLIA [id number] [place] [address] [place] AMERICAMagnesium SerPl-mCncon 01-13-2025 Magnesium [Mass/Vol]1.6 mg/dLLow1.7-2.3ClevelUNC Health Rex Holly SpringsComment on above:Order Comment: Specimen Type: BLOOD SPECIMENOrdering Facility: [facility] Address:[address] [place], [place] [address]Performed By: #### 87768-5, 46946-0, 2777-1 ####[facility] LABCLIA [id number] [facility]ITALK [place] [address] [facility] [place] NURSING PROGon 27-10-5802FSLEEMK PROGNormalWyandot Memorial HospitalNUTRITIONon 66-30-5769SFXCYSBXKMlbakzImnmicxac Clinic ClevelandPhosphate SerPl-Berwick Hospital Centeron 47-10-8310Zhysmkzia [Mass/Vol]4.1 mg/dLNormal2.7-4.8ClevelUNC Health Rex Holly Springs Comment on above:Order Comment: Specimen Type: BLOOD SPECIMENOrdering Facility: [facility] Address:[address] [place] [address] Performed By: #### 81153-7, 43322-7, 2777-1 ####[facility] LABCLIA [id number] [place] [address] [facility] MEDICAL CENTERTHERAPY NTon 88-26-5537ZNSZEZK NTNormalCPomerene Hospital Tacrolimus Bld-ncon 51-48-1504Xjqxtqskii (Bld) [Mass/Vol]9.2 ng/mLNormal 5.0-20.0[facility] on above:Order Comment: Specimen Type: BLOOD SPECIMENOrdering Facility: [facility] Address:[address] [place] [address]Dqkuoc Comment: Individualized target levels for a given [...] situation. Test performed by chemiluminescent immunoassay using KupiBonus AliniThe New Daily i.Performed By: #### 93616-2 ####[facility] LABCLIA [id number] [place] [address] [place] CBC W Auto Differential panel (Bld)on 30-97-0243Pushajpvudyc Ql (Bld)Present NormalHarrison Community Hospital on above:Order Comment: Specimen Type: BLOOD SPECIMENOrdering Facility: [facility] Address:[address] [place], [place] [address]Performed By: #### 09466-3 ####[facility] LABCLIA [id number] [place] [address] [place] AMERICABasophils (Bld) [#/Vol]0.00 10*3/uLNormal<0.11ClevelUC Medical Center on above:Order Comment: Specimen Type: BLOOD SPECIMENOrdering Facility: [facility] Address:[address] [place], [place] [address]Performed By: #### 94947-0 ####[facility] LABIA [id number] [place] [address] [place] Basophils/100 WBC (Bld)0.0 %NormalHarrison Community Hospital on above: Order Comment: Specimen Type: BLOOD SPECIMENOrdering Facility: [facility] Address:[address] [place], [place] [address]Performed By: #### 82818- 8 ####[facility] LABCLIA [id number] [place] [address] [place] AMERICADifferential cell count method Nom (Bld)ManualNormalClevelUC Medical Center on above:Order Comment: Specimen Type: BLOOD SPECIMENOrdering Facility: [facility] Address:[address] [place], [place] [address]Performed By: #### 68168-4 ####[facility] LABCLIA [id number] [place] [address] [place] AMERICAEosinophils (Bld) [#/Vol]0.11 10*3/uLNormal<0.46[facility] on above:Order Comment: Specimen Type: BLOOD SPECIMENOrdering Facility: [facility] Address:[address] [place], [place] [address]Performed By: #### 57168-2 ####[facility] LABCLIA [id number] [place] [address] [place] [facility] MEDICAL CENTEREosinophils/100 WBC (Bld)1.0 % NormalHarrison Community Hospital on above:Order Comment: Specimen Type: BLOOD SPECIMENOrdering Facility: [facility] Address:[address] [place], [place] [address]Performed By: #### 75611-8 ####[facility] LABIA [id number] [address], [place] [address] [place] AMERICAErythrocyte distribution width (RBC) [Ratio]19.2 %High11.5-15.0 [facility] on above:Order Comment: Specimen Type: BLOOD SPECIMENOrdering Facility: [facility] Address:[address] [place], [place] [address]Performed By: #### 35455-6 ####[facility] LABIA [id number] [place] [address] [place] AMERICAHematocrit (Bld) [Volume fraction]24.3 %Low39.0-51.0[facility] on above:Order Comment: Specimen Type: BLOOD SPECIMENOrdering Facility: [facility] Address:[address] [place], [place] [address]Performed By: #### 43106-8 ####[facility] LABIA [id number] [place] [id number] [place] Hemoglobin (Bld) [Mass/Vol]7.3 g/dLLow13.0-17.0[facility] on above:Order Comment: Specimen Type: BLOOD SPECIMENOrdering Facility: [facility] Address:[address] [place], [place] [address] Performed By: #### 72871-0 ####[facility] LABCLIA [id number] [place] [address] [place] [facility] Lymphocytes (Bld) [#/Vol]0.54 10*3/uLLow1.00-4.00[facility] Comment on above:Order Comment: Specimen Type: BLOOD SPECIMENOrdering Facility: [facility] Address:[address] [place] [address] Performed By: #### 29154-2 ####[facility] LABCLIA [id number] [address] STATES OF [facility] Lymphocytes/100 WBC (Bld)5.0 %NormalWyandot Memorial HospitalComment on above: Order Comment: Specimen Type: BLOOD SPECIMENOrdering Facility: [facility] Address:[address] [place], [place] [address]Performed By: #### 01170- 8 ####[facility] LABCLIA [id number] [address] (RBC) [Entitic mass]30.5 pg Xivvxh18.0-34.0Wyandot Memorial HospitalComment on above:Order Comment: Specimen Type: BLOOD SPECIMENOrdering Facility: [facility] Address:[address] [place], [place] [address]Performed By: #### 37736-9 ####[facility] LABCLIA [id number] [address] (RBC) [Mass/Vol]30.0 g/dLLow 30.5-36.0[facility]and[facility] Memorial HospitalCombronson lakeview hospital on above:Order Comment: Specimen Type: BLOOD SPECIMENOrdering Facility: [facility] Address:[address] [place], [place] [address]Performed By: #### 52003-9 ####[facility] LABCLIA [id number] [address] AVENUEDESK [place]13RJOULPMDM, [place] [address] [place] AMERICAMCV (RBC) [Entitic vol]101.7 tFIfma44.0-100.0[facility] on above:Order Comment: Specimen Type: BLOOD SPECIMENOrdering Facility: [facility] Address:[address] [place], [place] [address]Performed By: #### 80583-8 ####[facility] LABCLIA [id number] [address], [place] [address] [place] AMERICAMetamyelocytes/100 WBC (Bld)1.0 %NormalHarrison Community Hospital on above:Order Comment: Specimen Type: BLOOD SPECIMENOrdering Facility: [facility] Address:[address] [place] [address] Performed By: #### 50916-2 ####[facility] LABCLIA [id number] [address], [place] [address] [place] Monocytes (Bld) [#/Vol]1.18 10*3/uLHigh<0.87[facility] on above:Order Comment: Specimen Type: BLOOD SPECIMENOrdering Facility: [facility] Address:[address] [place], [place] [address]Performed By: #### 45296-3 ####[facility] LABCLIA [id number] [address], [place] [address] [place] AMERICAMonocytes/100 WBC (Bld)11.0 %NormalHarrison Community Hospital on above:Order Comment: Specimen Type: BLOOD SPECIMENOrdering Facility: [facility] Address:[address] [place], [place] [address]Performed By: #### 95765-6 ####[facility] LABCLIA [id number] [place] [address] [place] AMERICAMYELO%1.0 %NormalHarrison Community Hospital on above:Order Comment: Specimen Type: BLOOD SPECIMENOrdering Facility: [facility] Address:[address] [place], [place] [address]Performed By: #### 23516-2 ####[facility] LABCLIA [id number] [address], [place] [address] [place] Neutrophils (Bld) [#/Vol]8.68 10*3/uLHigh1.45-7.50[facility] Comment on above:Order Comment: Specimen Type: BLOOD SPECIMENOrdering Facility: [facility] Address:[address] [place] [address] Performed By: #### 48236-0 ####[facility] LABCLIA [id number] [address], [place] [address] [place] Neutrophils/100 WBC (Bld)81.0 %NormalHarrison Community Hospital on above: Order Comment: Specimen Type: BLOOD SPECIMENOrdering Facility: [facility] Address:[address] [place], [place] [address]Performed By: #### 42906- 8 ####[facility] LABIA [id number] [place] [address] [place] AMERICANucleated RBC (Bld) [#/Vol] 10*3/uLNormal<0.01[facility] on above:Order Comment: Specimen Type: BLOOD SPECIMENOrdering Facility: [facility] Address:[address] [place], [place] [address]Performed By: #### 24608-8 ####[facility] LABIA [id number] [place] [address] [place] AMERICANucleated RBC/100 WBC (Bld) [Ratio]0.0 /100 WBCNormalCSelect Medical [facility] on above:Order Comment: Specimen Type: BLOOD SPECIMENOrdering Facility: [facility] Address:[address] [place], [place] [address]Performed By: #### 45591- 8 ####[facility] LABCLIA [id number] [address], [facility]95 [place] AMERICAOvalocytes LM Ql (Bld)FewNormal [facility] on above:Order Comment: Specimen Type: BLOOD SPECIMENOrdering Facility: [facility] Address:[address] [place], [place] [address]Performed By: #### 71114-1 ####[facility] LABCLIA [id number] [place] [address] [place] AMERICAPlatelet mean volume (Bld) [Entitic vol]10.1 fLNormal9.0-12.7CSelect Medical Specialty [facility] on above:Order Comment: Specimen Type: BLOOD SPECIMENOrdering Facility: [facility] Address:[address] [place], [place] [address]Performed By: #### 60848-8 ####[facility] LABIA [id number] [place] [address] [place] AMERICAPlatelets (Bld) [#/Vol]371 10*3/pUCgiuyg324-082TcjeggokzWyandot Memorial Hospital Comment on above:Order Comment: Specimen Type: BLOOD SPECIMENOrdering Facility: [facility] Address:[address] [place] [address] Performed By: #### 17171-0 ####[facility] LABIA [id number] [place] [address] [place] Platelets Estimate (Bld) [#/Vol]AdequateNormalCSelect Medical [facility] on above:Order Comment: Specimen Type: BLOOD SPECIMENOrdering Facility: [facility] Address:[address] [place] [address] Performed By: #### 98799-7 ####[facility] LABIA [id number] [place] [id number] [place] RBC (Bld) [#/Vol]2.39 10*6/uLLow4.20-6.00[facility] on above:Order Comment: Specimen Type: BLOOD SPECIMENOrdering Facility: [facility] Address:[address] [place], [place] [address]Performed By: #### 93002-5 ####[facility] LABCLIA [id number] [address] [place] [address] [place] AMERICARED CELL MORPH Reviewed: see results of individual [facility] Comment on above:Order Comment: Specimen Type: BLOOD SPECIMENOrdering Facility: [facility] Address:[address] [place] [address] Performed By: #### 22100-1 ####[facility] LABCLIA [id number] [place] [address] [place] WBC (Bld) [#/Vol]10.71 10*3/uLNormal3.70-11.00[facility]ot Memorial HospitalComment on above:Order Comment: Specimen Type: BLOOD SPECIMENOrdering Facility: [facility] Address:[address] [place] [address] Performed By: #### 29677-0 ####[facility] LABCLIA [id number] [place] [address] [place] WBC Left Shift Ql (Bld)[facility]ull Memorial HospitalComment on above: Order Comment: Specimen Type: BLOOD SPECIMENOrdering Facility: [facility] Address:[address] [place], [place] [address]Performed By: #### 75891- 8 ####[facility] LABCLIA [id number] [place] [id number] [place] AMERICAComprehensive metabolic 2000 panelon 38-30-4681Mzxrfcu [Mass/Vol]2.1 g/dLLow3.9-4.9CPomerene Hospital Comment on above:Order Comment: Specimen Type: BLOOD SPECIMENOrdering Facility: [facility] Address:[address] [place] [address] Performed By: #### 92258-5, 39494-4, 2777-1 ####[facility] LABCLIA [id number] VILLE [address] [place] AMERICAALP [Catalytic activity/Vol]300 U/ODuiz79-922UpcdevzigWyandot Memorial Hospital Comment on above:Order Comment: Specimen Type: BLOOD SPECIMENOrdering Facility: [facility] Address:[address] [place] [address] Performed By: #### 55348-5, , 2776-04 ####[facility] LABCLIA [id number] [address] [address] [place] [Catalytic activity/Vol]30 U/QJsykmw56-92ZvbdlyhpsWyandot Memorial Hospital Comment on above:Order Comment: Specimen Type: BLOOD SPECIMENOrdering Facility: [facility] Address:[address] [place] [address] Performed By: #### 85947-2, , 2776-04 ####[facility] LABCLIA [id number] [place] [id number] [place] AMERICAAnion gap [Moles/Vol]12 mmol/LNormal8-15W[facility] HospitalComment on above:Order Comment: Specimen Type: BLOOD SPECIMENOrdering Facility: [facility] Address:[address] [place] [address] Performed By: #### 69429-7, , 2776-04 ####KEENAN [facility] [id number] [address] [address] [place] OF AMERICAAST [Catalytic activity/Vol]27 U/HSrwayp58-16MoanbkkfhWyandot Memorial Hospital Comment on above:Order Comment: Specimen Type: BLOOD SPECIMENOrdering Facility: [facility] Address:[address] [place], [place] [address] Performed By: #### 05838-5, , 2776-04 ####[facility] [id number] [address] [address] [place] AMERICABilirubin [Mass/Vol]0.3 mg/dLNormal0.2-1.3CPomerene Hospital Comment on above:Order Comment: Specimen Type: BLOOD SPECIMENOrdering Facility: [facility] Address:[address] [place], [place] [address] Performed By: #### 18917-6, 79082-7, 2776-04 ####[facility] [id number] [address] [place] AMERICACalcium [Mass/Vol]8.7 mg/dLNormal8.5-10.2ClevelUNC Health Rex [facility] Comment on above:Order Comment: Specimen Type: BLOOD SPECIMENOrdering Facility: [facility] Address:[address] [place], [place] [address] Performed By: #### 47840-0, , 2776-04 ####[facility] [id number] VILLE [address] [place] OF AMERICAChloride [Moles/Vol]101 mmol/EGwwqkn32-584IsajacqmnWyandot Memorial Hospital Comment on above:Order Comment: Specimen Type: BLOOD SPECIMENOrdering Facility: [facility] Address:[address] [place], [place] [address] Performed By: #### 60010-0, , 2776-04 ####[facility] [id number] VILLE [address] [place] AMERICACO2 [Moles/Vol]23 mmol/VGiblxh28-62OfxpmsvydWyandot Memorial HospitalComment on above:Order Comment: Specimen Type: BLOOD SPECIMENOrdering Facility: [facility] Address:[address] [place], [place] [address]Performed By: #### 36906-9, , 2776-04 ####[facility] [id number] [address] [place] Creatinine [Mass/Vol]0.71 mg/dLLow0.73-1.22Wyandot Memorial HospitalComment on above:Order Comment: Specimen Type: BLOOD SPECIMENOrdering Facility: [facility] Address:[address] [place], [place] [address]Performed By: #### 68929-3, 46193-0, 2776-04 ####[facility] [id number] VILLE [address] [place] eGFRcr SerPlBld CKD-EPI 462104 mL/min/1.73m???Normal>=60[facility] on above:Order Comment: Specimen Type: BLOOD SPECIMENOrdering Facility: [facility] Address:[address] [place], [place] [address]Result Comment: Estimated Glomerular Filtration Rate (eGFR) is [...] accurately reflect actual GFR. Performed By: #### 17839-8, , 2776-04 ####[facility] LABIA [id number] VILLE [address] [place] OF [facility]HO[facility]IONAL MEDICAL CENTERGlucose [Mass/Vol]119 mg/uWBmhv89-55StohsninmHarrison Community Hospital on above:Order Comment: Specimen Type: BLOOD SPECIMENOrdering Facility: [facility] Address:[address] [place], [place] [address]Result Comment: The [place] Diabetes Association (ADA) provides guidance for cutoff [...] Standards of Medical Care in Diabetes 2016, [place] Diabetes Association. Diabetes Care. 2016.39(Suppl 1).Performed By: #### 63209-2, 89893-2, 2776-04 ####[facility] [id number] [address] [place] AMERICAPotassium [Moles/Vol]4.4 mmol/LNormal3.7-5.1 [facility] on above:Order Comment: Specimen Type: BLOOD SPECIMENOrdering Facility: [facility] Address:[address] [place], [place] [address]Performed By: #### 68231-0, , 2776-04 ####[facility] LABIA [id number] [address] [place] AMERICAProtein [Mass/Vol]5.3 g/dLLow6.3-8.0[facility] on above:Order Comment: Specimen Type: BLOOD SPECIMENOrdering Facility: [facility] Address:[address] [place], [place] [address]Performed By: #### 98091-1, 82455-7, 2776-04 ####[facility] LABIA [id number] VILLE [address] [place] AMERICASodium [Moles/Vol]136 mmol/MKfjovk047-767IlkhoccslHarrison Community Hospital on above:Order Comment: Specimen Type: BLOOD SPECIMENOrdering Facility: [facility] Address:[address] [place], [place] [address]Performed By: #### 25755-8, , 2776-04 ####[facility] LABIA [id number] [address] [place] AMERICAUrea nitrogen [Mass/Vol]17 mg/dLNormal9-24 [facility] on above:Order Comment: Specimen Type: BLOOD SPECIMENOrdering Facility: [facility] Address:[address] [place], [place] [address]Performed By: #### 32897-3, 18445-2, 2776-04 ####[facility] [id number] [place] [id number] [place] AMERICAMagnesium SerPl-mCncon 66-82-5679Szfraluuz [Mass/Vol]1.9 mg/dLNormal1.7-2.3ClevelUC Medical Center on above:Order Comment: Specimen Type: BLOOD SPECIMENOrdering Facility: [facility] Address:[address] [place], [place] [address]Performed By: #### 94476- 8, 18014-9, 2777-1 ####[facility] [id number] [address] [place] AMERICAPhosphate SerPl-mCnc on 65-13-8653Hiirbpgmf [Mass/Vol]4.5 mg/dLNormal2.7-4.8ClevelUC Medical Center on above:Order Comment: Specimen Type: BLOOD SPECIMENOrdering Facility: [facility] Address:[address] [place], [place] [address]Performed By: #### 86796-6, 73206-7, 2777-1 ####[facility] [id number] [address] [place] AMERICATYPE + SCREENon 74-44-3946HVACUrwxciZlsowqroj [facility] Comment on above:Order Comment: Specimen Type: BLOOD SPECIMENOrdering Facility: [facility] Address:[address] [place] [address] Performed By: #### TSCR ####[facility] BANKCLIA [id number] [place] [id number] [place] AMERICARh Nom (Bld)Positive NormalHarrison Community Hospital on above:Order Comment: Specimen Type: BLOOD SPECIMENOrdering Facility: [facility] Address:[address] [place], [place] [address]Performed By: #### TSCR ####[facility] BLOOD BANKCLIA [id number] [place] [address] [place] AMERICATYPE AND SCREEN QAKIUCJFLE37/01/2025 23:59NormalCSelect [facility] on above:Order Comment: Specimen Type: BLOOD SPECIMENOrdering Facility: [facility] Address:[address] [place], [place] [address]Performed By: #### TSCR ####[facility] BLOOD BANKIA [id number] [place] [address] [place] COSHOCTON REGIONAL MEDICAL CENTERTacrolimus Bld-mCncon 90-22-3369Kekhhmwrlf (Bld) [Mass/Vol]10.6 ng/mLNormal5.0-20.0[facility] on above:Order Comment: Specimen Type: BLOOD SPECIMENOrdering Facility: [facility] Address:[address] [place], [place] [address]Result Comment: Individualized target levels for a given [...] situation. Test performed by chemiluminescent immunoassay using KupiBonus Alinity i.Performed By: #### 48391-9 ####[facility] [id number] [place] [id number] [place] AMERICACBC W Auto Differential panel (Bld)on 37-04-5579Ykehckskaveq Ql (Bld)PresentNoBarney Children's Medical Center Comment on above:Order Comment: Specimen Type: BLOOD SPECIMENOrdering Facility: [facility] Address:[address] [place] [address] Performed By: #### 08626-2 ####[facility] LABIA [id number] [place] [address] [place] Basophils (Bld) [#/Vol]0.11 10*3/uLHigh<0.11CSelect Medical Specialty [facility] on above:Order Comment: Specimen Type: BLOOD SPECIMENOrdering Facility: [facility] Address:[address] [place], [place] [address]Performed By: #### 50892-0 ####[facility] [id number] [place] [address] [place] AMERICABasophils/100 WBC (Bld)0.9 %NormalHarrison Community Hospital on above:Order Comment: Specimen Type: BLOOD SPECIMENOrdering Facility: [facility] Address:[address] [place], [place] [address]Performed By: #### 15683-9 ####[facility] LABIA [id number] [place] [address] [place] AMERICADifferential cell count method Nom (Bld)ManualNormalCSelect Medical Specialty [facility] on above:Order Comment: Specimen Type: BLOOD SPECIMENOrdering Facility: [facility] Address:[address] [place], [place] [address]Performed By: #### 80936-0 ####[facility] LABIA [id number] [place] [address] [place] AMERICAEosinophils (Bld) [#/Vol]0.00 10*3/uLNormal<0.46[facility] on above:Order Comment: Specimen Type: BLOOD SPECIMENOrdering Facility: [facility] Address:[address] [place], [place] [address]Performed By: #### 01248-4 ####[facility] LABIA [id number] [place] [address] [place] AMERICAEosinophils/100 WBC (Bld)0.0 % NormalHarrison Community Hospital on above:Order Comment: Specimen Type: BLOOD SPECIMENOrdering Facility: [facility] Address:[address] [place], [place] [address]Performed By: #### 75287-1 ####[facility] LABIA [id number] [place] [address] [place] AMERICAErythrocyte distribution width (RBC) [Ratio]19.0 %High11.5-15.0 [facility] on above:Order Comment: Specimen Type: BLOOD SPECIMENOrdering Facility: [facility] Address:[address] [place], [place] [address]Performed By: #### 72123-6 ####[facility] [id number] [place] [address] [place] AMERICAHematocrit (Bld) [Volume fraction]24.0 %Low39.0-51.0[facility] on above:Order Comment: Specimen Type: BLOOD SPECIMENOrdering Facility: [facility] Address:[address] [place], [place] [address]Performed By: #### 25135-4 ####[facility] [id number] [place] [address] [place] Hemoglobin (Bld) [Mass/Vol]7.8 g/dLLow13.0-17.0[facility] on above:Order Comment: Specimen Type: BLOOD SPECIMENOrdering Facility: [facility] Address:[address] [place] [address] Performed By: #### 52747-3 ####[facility]IA [id number] [place] [address] [place] Lymphocytes (Bld) [#/Vol]0.32 10*3/uLLow1.00-4.00[facility] Comment on above:Order Comment: Specimen Type: BLOOD SPECIMENOrdering Facility: [facility] Address:[address] [place] [address] Performed By: #### 37863-4 ####[facility] [id number] [place] [address] [place] Lymphocytes/100 WBC (Bld)2.7 %NormalHarrison Community Hospital on above: Order Comment: Specimen Type: BLOOD SPECIMENOrdering Facility: [facility] Address:[address] [place], [place] [address]Performed By: #### 61008- 8 ####[facility] [id number] [address] (RBC) [Entitic mass]32.1 pg Bbxbex88.0-34.0[facility] on above:Order Comment: Specimen Type: BLOOD SPECIMENOrdering Facility: [facility] Address:[address] [place], [place] [address]Performed By: #### 31955-5 ####[facility]IA [id number] [address], [address] (RBC) [Mass/Vol]32.5 g/dL Yrbpfq81.5-36.0[facility] on above:Order Comment: Specimen Type: BLOOD SPECIMENOrdering Facility: [facility] Address:[address] [place], [place] [address]Performed By: #### 69572-6 ####[facility]IA [id number] [address] (RBC) [Entitic vol]98.8 fL Yfangx08.0-100.0[facility] on above:Order Comment: Specimen Type: BLOOD SPECIMENOrdering Facility: [facility] Address:[address] [place], [place] [address]Performed By: #### 46144-1 ####[facility]IA [id number] [address], [facility]95 [facility]ATION HOSPITALMonocytes (Bld) [#/Vol]1.17 10*3/uLHigh<0.87[facility] on above:Order Comment: Specimen Type: BLOOD SPECIMENOrdering Facility: [facility] Address:[address] [place], [place] [address]Performed By: #### 01139-9 ####[facility]IA [id number] [address] [address] [place] AMERICAMonocytes/100 WBC (Bld)9.9 % NormalHarrison Community Hospital on above:Order Comment: Specimen Type: BLOOD SPECIMENOrdering Facility: [facility] Address:[address] [place], [place] [address]Performed By: #### 96907-6 ####[facility] [id number] [address], [facility]95 [place] AMERICAMYELO%0.9 %NormalHarrison Community Hospital on above: Order Comment: Specimen Type: BLOOD SPECIMENOrdering Facility: [facility] Address:[address] [place], [place] [address]Performed By: #### 09566- 8 ####[facility]CL[facility] [id number] [place] [address] [place] AMERICANeutrophils (Bld) [#/Vol]10.12 10*3/uLHigh1.45-7.50[facility] on above:Order Comment: Specimen Type: BLOOD SPECIMENOrdering Facility: [facility] Address:[address] [place], [place] [address]Performed By: #### 88812-7 ####[facility]CL[facility] [id number] [place] [address] [place] AMERICANeutrophils/100 WBC (Bld)85.6 % NormalHarrison Community Hospital on above:Order Comment: Specimen Type: BLOOD SPECIMENOrdering Facility: [facility] Address:[address] [place], [place] [address]Performed By: #### 53091-0 ####[facility]CL[facility] [id number] [place] [address] [place] AMERICANucleated RBC (Bld) [#/Vol]10*3/uLNormal<0.01[facility] on above:Order Comment: Specimen Type: BLOOD SPECIMENOrdering Facility: [facility] Address:[address] [place], [place] [address]Performed By: #### 40238-6 ####[facility] LABIA [id number] [place] [address] [place] Nucleated RBC/100 WBC (Bld) [Ratio]0.0 /100 WBCNormalCPomerene Hospital Comment on above:Order Comment: Specimen Type: BLOOD SPECIMENOrdering Facility: [facility] Address:[address] [place] [address] Performed By: #### 06424-4 ####[facility] LABIA [id number] [place] [address] [place] Platelet mean volume (Bld) [Entitic vol]10.2 fLNormal9.0-12.7CPomerene HospitalCombronson lakeview hospital on above:Order Comment: Specimen Type: BLOOD SPECIMENOrdering Facility: [facility] Address:[address] [place], [place] [address]Performed By: #### 02643-5 ####[facility] LABIA [id number] [place] [id number] [place] Platelets (Bld) [#/Vol]366 10*3/lGEiilhg509-564CkgmpwkveWyandot Memorial HospitalComment on above:Order Comment: Specimen Type: BLOOD SPECIMENOrdering Facility: [facility] Address:[address] [place] [address] Performed By: #### 10975-9 ####[facility]IA [id number] [place] [id number] [place] Platelets Estimate (Bld) [#/Vol]AdequateNormalCPomerene HospitalCombronson lakeview hospital on above:Order Comment: Specimen Type: BLOOD SPECIMENOrdering Facility: [facility] Address:[address] [place] [address] Performed By: #### 08350-1 ####[facility] LABIA [id number] [address], [place] [address] [place] Polychromasia LM Ql (Bld)SlightNormalCSelect Medical [facility] on above: Order Comment: Specimen Type: BLOOD SPECIMENOrdering Facility: [facility] Address:[address] [place], [place] [address]Performed By: #### 36286- 8 ####[facility]CL[facility] [id number] [address] [place] [address] [place] COSHOCTON REGIONAL MEDICAL CENTERRBC (Bld) [#/Vol]2.43 10*6/uLLow 4.20-6.00W[facility]ot Memorial HospitalComment on above:Order Comment: Specimen Type: BLOOD SPECIMENOrdering Facility: [facility] Address:[address] [place], [place] [address]Performed By: #### 50207-9 ####[facility]CLIA [id number] [place] [address] [place] MISERICORDIA HOSPITALRBC FRAGMENTSFewAbnormalNone SeenHarrison Community Hospital on above:Order Comment: Specimen Type: BLOOD SPECIMENOrdering Facility: [facility] Address:[address] [place], [place] [address]Performed By: #### 09771-6 ####[facility]CLIA [id number] [place] [id number] [place] RED CELL MORPHReviewed: see results of individual morphologiesKettering Health Troy on above:Order Comment: Specimen Type: BLOOD SPECIMENOrdering Facility: [facility] Address:[address] [place], [place] [address]Performed By: #### 37810-0 ####[facility]CLIA [id number] [address] [place] [address] [place] COSHOCT[facility] REGIONAL MEDICAL CENTERWBC (Bld) [#/Vol]11.82 10*3/uLHigh3.70-11.00[facility] Comment on above:Order Comment: Specimen Type: BLOOD SPECIMENOrdering Facility: [facility] Address:[address] [place] [address] Performed By: #### 11739-2 ####[facility]CLIA [id number] [place] [id number] [place] WBC Left Shift Ql (Bld)PresentNormalClevelUC Medical Center on above: Order Comment: Specimen Type: BLOOD SPECIMENOrdering Facility: [facility] Address:[address] [place], [place] [address]Performed By: #### 93823- 8 ####[facility] LABCLIA [id number] [place] [id number] [place] AMERICACCF BACTERIA BLD CULTon 72-63-8833GRW BACTERIA BLD CULT CULTURE, BLOOD: No growth 5 days NOMS HealthcareOriginal Ordering Provider: XUAN MORIN HealthcareCRP SerPl-ncon 38-38-3450XRX [Mass/Vol]23.9 mg/dLHigh<0.9ClevelUC Medical Center on above:Order Comment: Specimen Type: BLOOD SPECIMENOrdering Facility: [facility] Address:[address] [place], [place] [address]Performed By: #### 51322-2, 1987-08, , 2776-04 ####[facility] LABCLIA [id number] [place] [address] [place] AMERICAComprehensive metabolic 2000 panelon 81-46-6318Aczoqdr [Mass/Vol]2.2 g/dLLow3.9-4.9ClevelUNC Health Rex [facility] Comment on above:Order Comment: Specimen Type: BLOOD SPECIMENOrdering Facility: [facility] Address:[address] [place] [address] Performed By: #### 53411-7, 1987-08, , 2776-04 ####[facility] LABCLIA [id number] [place] [id number] [place] AMERICAALP [Catalytic activity/Vol]321 U/SFjei24-385DgbpsjyvrHarrison Community Hospital on above:Order Comment: Specimen Type: BLOOD SPECIMENOrdering Facility: [facility] Address:[address] [place], [place] [address]Performed By: #### 85265-5, 1987-08, , 2776-04 ####[facility] LABCLIA [id number] [place] [id number] [place] AMERICAALT [Catalytic activity/Vol]31 U/RAgiohx48-28TynuzjpivHarrison Community Hospital on above:Order Comment: Specimen Type: BLOOD SPECIMENOrdering Facility: [facility] Address:[address] [place], [place] [address]Performed By: #### 17229-6, 1987-08, , 2776-04 ####[facility] LABCLIA [id number] [place] [id number] [place] AMERICAAnion gap [Moles/Vol]12 mmol/L Normal8-15[facility] on above:Order Comment: Specimen Type: BLOOD SPECIMENOrdering Facility: [facility] Address:[address] [place], [place] [address]Performed By: #### 82708-7, 1987-08, , 2776-04 ####[facility] LABIA [id number] [place] [address] [place] AMERICAAST [Catalytic activity/Vol]28 U/FWeezas63-16XjmtxruvdHarrison Community Hospital on above:Order Comment: Specimen Type: BLOOD SPECIMENOrdering Facility: [facility] Address:[address] [place], [place] [address]Performed By: #### 71305-8, 1987-08, , 2776-04 ####[facility] LABIA [id number] [place] [id number] [place] AMERICABilirubin [Mass/Vol]0.4 mg/dL Normal0.2-1.3CSelect Medical Special[facility] on above:Order Comment: Specimen Type: BLOOD SPECIMENOrdering Facility: [facility] Address:[address] [place] [address]Kkurkcnxg By: #### 88702-2, 1987-08, , 2776-04 ####[facility] LABCLIA [id number] [address] [address] [place] AMERICACalcium [Mass/Vol]8.5 mg/dL Normal8.5-10.2CSelect Medical Specialty [facility] on above:Order Comment: Specimen Type: BLOOD SPECIMENOrdering Facility: [facility] Address:[address] [place] [address]Vctifvvmn By: #### 92865-2, 1987-08, , 2776-04 ####[facility] LABCLIA [id number] [place] [id number] [place] AMERICAChloride [Moles/Vol]102 mmol/L Gpsppi42-593ZqlhpmknqHarrison Community Hospital on above:Order Comment: Specimen Type: BLOOD SPECIMENOrdering Facility: [facility] Address:[address] [place] [address]Sefkxjgou By: #### 50644-8, 1987-08, , 2776-04 ####[facility] LABCLIA [id number] [place] [id number] [place] AMERICACO2 [Moles/Vol]22 mmol/LNormal 22-30[facility] on above:Order Comment: Specimen Type: BLOOD SPECIMENOrdering Facility: [facility] Address:[address] [place] [address]Zirmjddau By: #### 72966-0, 1987-08, , 2776-04 ####[facility]CLIA [id number] [address] [address] [place] AMERICACreatinine [Mass/Vol]0.62 mg/dL Low0.73-1.22[facility] on above:Order Comment: Specimen Type: BLOOD SPECIMENOrdering Facility: [facility] Address:[address] [place], [place] [address]Performed By: #### 04235-5, 1987-08, , 2776-04 ####[facility] LABIA [id number] [place] [id number] [place] AMERICAeGFRcr SerPlBld CKD-EPI 0189339 mL/min/1.73m???Normal>=60[facility] on above:Order Comment: Specimen Type: BLOOD SPECIMENOrdering Facility: [facility] Address:[address] [place], [place] [address]Result Comment: Estimated Glomerular Filtration Rate (eGFR) is [...] not accurately reflect actual GFR.Performed By: #### 92691-6, 1987-08, , 2776-04 ####[facility] LABIA [id number] [place] [id number] [place] AMERICAGlucose [Mass/Vol]105 mg/jEJspi70-03MwzqhnpmyHarrison Community Hospital on above:Order Comment: Specimen Type: BLOOD SPECIMENOrdering Facility: [facility] Address:[address] [place], [place] [address]Result Comment: The [place] Diabetes Association (ADA) provides guidance for cutoff [...] Standards of Medical Care in Diabetes 2016, [place] [employer]. Diabetes Care. 2016.39(Suppl 1). Performed By: #### 47705-9, 1987-08, , 2776-04 ####[facility] LABCLIA [id number] [place] [id number] [place] AMERICAPotassium [Moles/Vol]4.1 mmol/LNormal3.7-5.1CSelect [facility] Specialty [facility] on above:Order Comment: Specimen Type: BLOOD SPECIMENOrdering Facility: [facility] Address:[address] [place], [place] [address]Performed By: #### 33895-2, 1987-08, , 2776-04 ####[facility] LABIA [id number] [place] [address] [place] AMERICAProtein [Mass/Vol]5.3 g/dLLow6.3-8.0[facility] on above:Order Comment: Specimen Type: BLOOD SPECIMENOrdering Facility: [facility] Address:[address] [place], [place] [address]Performed By: #### 59650-1, 1987-08, , 2776-04 ####[facility] [id number] [place] [id number] [place] OF AMERICASodium [Moles/Vol]136 mmol/UUxdnlb901-650QuvpmuhbrHarrison Community Hospital on above:Order Comment: Specimen Type: BLOOD SPECIMENOrdering Facility: [facility] Address:[address] [place], [place] [id number] By: #### 47870-7, 1987-08, , 2776-04 ####[facility] [id number] [place] [id number] [place] AMERICAUrea nitrogen [Mass/Vol]19 mg/dL Normal9-24[facility] on above:Order Comment: Specimen Type: BLOOD SPECIMENOrdering Facility: [facility] Address:[address] [place], [place] [id number] By: #### 22416-2, 1987-08, , 2776-04 ####[facility] LABCLIA [id number] [place] [id number] [place] AMERICAMagnesium SerPl-mCncon [id number] [Mass/Vol]1.5 mg/dLLow1.7-2.3CPomerene Hospital Comment on above:Order Comment: Specimen Type: BLOOD SPECIMENOrdering Facility: [facility] Address:[address] [place], [place] [address] Performed By: #### 89894-8, 1987-08, , 2776-04 ####[facility] LABCLIA [id number] [place] [address] [place] OF AMERICAPhosphate SerPl-ncon 68-80-7983Jfptmursk [Mass/Vol]4.5 mg/dL Normal2.7-4.8ClevelUNC Health Rex Holly SpringsComment on above:Order Comment: Specimen Type: BLOOD SPECIMENOrdering Facility: [facility] Address:[address] [place], [place] [address]Performed By: #### 45051-3, 1987-08, , 2776-04 ####[facility] LABIA [id number] [place] [address] [place] AMERICATacrolimus Bld-mCncon 01-11-2025 Tacrolimus (Bld) [Mass/Vol]8.9 ng/mLNormal5.0-20.0[facility] Comment on above:Order Comment: Specimen Type: BLOOD SPECIMENOrdering Facility: [facility] Address:[address] [place], [place] [address]Result Comment: Individualized target levels for a given [...] situation. Test performed by chemiluminescent immunoassay using KupiBonus Alinity i.Performed By: #### 43341-0 ####[facility] LABIA [id number] [address] [address] [place] OF AMERICAXR ABDOMEN 1V SUPINEon 91-81-1926VL ABDOMEN 1V SUPINENormalCVeterans Health Administration W Auto Differential panel (Bld)on 54-36-2444Ivcirnrbuwgf Ql (Bld)PresentNoToledo Hospital on above:Order Comment: Specimen Type: BLOOD SPECIMENOrdering Facility: [facility] Address:[address] [place], [place] [address]Performed By: #### 74045-0 ####[facility] LABIA [id number] [address] [address] [place] AMERICABasophils (Bld) [#/Vol]0.00 10*3/uLNormal<0.11CSelect [facility] on above:Order Comment: Specimen Type: BLOOD SPECIMENOrdering Facility: [facility] Address:[address] [place], [place] [address]Performed By: #### 84751- 8 ####[facility] LABIA [id number] [address] [address] [place] AMERICABasophils/100 WBC (Bld)0.0 % NormalHarrison Community Hospital on above:Order Comment: Specimen Type: BLOOD SPECIMENOrdering Facility: [facility] Address:[address] [place], [place] [address]Performed By: #### 73049-2 ####[facility] LABIA [id number] [place] [address] [place] AMERICADifferential cell count method Nom (Bld)ManualNoToledo Hospital on above:Order Comment: Specimen Type: BLOOD SPECIMENOrdering Facility: [facility] Address:[address] [place], [place] [address]Performed By: #### 20746-5 ####[facility] LABCLIA [id number] [address], [place] [address] [place] AMERICAEosinophils (Bld) [#/Vol]0.00 10*3/uLNormal<0.46[facility] on above:Order Comment: Specimen Type: BLOOD SPECIMENOrdering Facility: [facility] Address:[address] [place], [place] [address]Performed By: #### 60586-5 ####[facility] LABIA [id number] [place] [address] [place] Eosinophils/100 WBC (Bld)0.0 %NormalHarrison Community Hospital on above: Order Comment: Specimen Type: BLOOD SPECIMENOrdering Facility: [facility] Address:[address] [place], [place] [address]Performed By: #### 07599- 8 ####[facility] LABIA [id number] [place] [address] [place] AMERICAErythrocyte distribution width (RBC) [Ratio]19.4 %High11.5-15.0[facility] on above:Order Comment: Specimen Type: BLOOD SPECIMENOrdering Facility: [facility] Address:[address] [place], [place] [address]Performed By: #### 75328- 8 ####[facility] LABIA [id number] [place] [address] [place] AMERICAHematocrit (Bld) [Volume fraction]27.6 %Low39.0-51.0[facility] on above:Order Comment: Specimen Type: BLOOD SPECIMENOrdering Facility: [facility] Address:[address] [place], [place] [address]Performed By: #### 56081- 8 ####[facility] LABIA [id number] [place] [address] [place] AMERICAHemoglobin (Bld) [Mass/Vol]8.4 g/dLLow13.0-17.0[facility] on above:Order Comment: Specimen Type: BLOOD SPECIMENOrdering Facility: [facility] Address:[address] [place], [place] [address]Performed By: #### 69911-9 ####[facility] LABCLIA [id number] [place] [address] [place] AMERICALymphocytes (Bld) [#/Vol]0.55 10*3/uLLow1.00-4.00[facility] on above:Order Comment: Specimen Type: BLOOD SPECIMENOrdering Facility: [facility] Address:[address] [place], [place] [address]Performed By: #### 09408-5 ####[facility] LABCLIA [id number] [place] [address] [place] AMERICALymphocytes/100 WBC (Bld)4.0 % NormalHarrison Community Hospital on above:Order Comment: Specimen Type: BLOOD SPECIMENOrdering Facility: [facility] Address:[address] [place], [place] [address]Performed By: #### 44228-9 ####[facility] LABCLIA [id number] [place] [address] [place] AMERICAMCH (RBC) [Entitic mass]31.3 zvZzgytr30.0-34.0[facility] on above:Order Comment: Specimen Type: BLOOD SPECIMENOrdering Facility: [facility] Address:[address] [place], [place] [address]Performed By: #### 72797-6 ####[facility] LABCLIA [id number] [place] [address] [place] MCHC (RBC) [Mass/Vol]30.4 g/dLLow30.5-36.0[facility] on above:Order Comment: Specimen Type: BLOOD SPECIMENOrdering Facility: [facility] Address:[address] [place], [place] [address]Performed By: #### 20077-0 ####[facility] LABCLIA [id number] [address], [place] [address] [place] AMERICAMCV (RBC) [Entitic vol]103.0 eBVysn26.0-100.0[facility] on above:Order Comment: Specimen Type: BLOOD SPECIMENOrdering Facility: [facility] Address:[address] [place], [place] [address]Performed By: #### 13225- 8 ####[facility] LABCLIA [id number] [address], [place] [address] [place] AMERICAMetamyelocytes/100 WBC (Bld)2.0 % NormalHarrison Community Hospital on above:Order Comment: Specimen Type: BLOOD SPECIMENOrdering Facility: [facility] Address:[address] [place], [place] [address]Performed By: #### 85309-4 ####[facility] LABCLIA [id number] [address], [place] [address] [place] AMERICAMonocytes (Bld) [#/Vol]0.41 10*3/uLNormal<0.87[facility] on above:Order Comment: Specimen Type: BLOOD SPECIMENOrdering Facility: [facility] Address:[address] [place], [place] [address]Performed By: #### 16985-0 ####[facility] LABCLIA [id number] [address], [facility]95 [place] Monocytes/100 WBC (Bld)3.0 %NormalHarrison Community Hospital on above: Order Comment: Specimen Type: BLOOD SPECIMENOrdering Facility: [facility] Address:[address] [place], [place] [address]Performed By: #### 86619- 8 ####[facility] LABCLIA [id number] [address], [facility]95 [place] AMERICAMYELO%2.0 %NormalHarrison Community Hospital on above:Order Comment: Specimen Type: BLOOD SPECIMENOrdering Facility: [facility] Address:[address] [place], [place] [address]Performed By: #### 29602-8 ####[facility] LABCLIA [id number] [place] [address] [place] Neutrophils (Bld) [#/Vol]12.15 10*3/uLHigh1.45-7.50[facility] Comment on above:Order Comment: Specimen Type: BLOOD SPECIMENOrdering Facility: [facility] Address:[address] [place] [address] Performed By: #### 79632-1 ####[facility] LABCLIA [id number] [place] [address] [place] Neutrophils/100 WBC (Bld)89.0 %NormalHarrison Community Hospital on above: Order Comment: Specimen Type: BLOOD SPECIMENOrdering Facility: [facility] Address:[address] [place], [place] [address]Performed By: #### 62531- 8 ####[facility] LABCLIA [id number] [place] [address] [place] AMERICANucleated RBC (Bld) [#/Vol] 10*3/uLNormal<0.01[facility] on above:Order Comment: Specimen Type: BLOOD SPECIMENOrdering Facility: [facility] Address:[address] [place], [place] [address]Performed By: #### 12273-9 ####[facility] LABCLIA [id number] [place] [address] [place] AMERICANucleated RBC/100 WBC (Bld) [Ratio]0.0 /100 WBCNormalCSelect Medical Specialty [facility] on above:Order Comment: Specimen Type: BLOOD SPECIMENOrdering Facility: [facility] Address:[address] [place], [place] [address]Performed By: #### 65224- 8 ####[facility] LABCLIA [id number] [place] [address] [place] AMERICAOvalocytes LM Ql (Bld)FewNormal [facility] HospitalCombronson lake[facility] on above:Order Comment: Specimen Type: BLOOD SPECIMENOrdering Facility: [facility] Address:[address] [place], [place] [address]Performed By: #### 36157-0 ####[facility] LABIA [id number] [place] [address] [place] AMERICAPlatelet mean volume (Bld) [Entitic vol]10.6 fLNormal9.0-12.7ClevelUC Medical Center on above:Order Comment: Specimen Type: BLOOD SPECIMENOrdering Facility: [facility] Address:[address] [place], [place] [address]Performed By: #### 22510-9 ####[facility] LABIA [id number] [place] [address] [place] AMERICAPlatelets (Bld) [#/Vol]397 10*3/xTXaztce789-405SrghhrcxzWyandot Memorial Hospital Comment on above:Order Comment: Specimen Type: BLOOD SPECIMENOrdering Facility: [facility] Address:[address] [place] [address] Performed By: #### 99642-4 ####[facility] LABCLIA [id number] [place] [address] [place] Platelets Estimate (Bld) [#/Vol]AdequateNormalCSelect Medical [facility] on above:Order Comment: Specimen Type: BLOOD SPECIMENOrdering Facility: [facility] Address:[address] [place] [address] Performed By: #### 92704-0 ####[facility] LABCLIA [id number] [place] [address] [place] Polychromasia LM Ql (Bld)SlightNormalCSelect Medical Specialty [facility] on above: Order Comment: Specimen Type: BLOOD SPECIMENOrdering Facility: [facility] Address:[address] [place], [place] [address]Performed By: #### 41302- 8 ####[facility] LABCLIA [id number] [address] [place] [address] [place] AMERICARBC (Bld) [#/Vol]2.68 10*6/uLLow 4.20-6.00[facility] on above:Order Comment: Specimen Type: BLOOD SPECIMENOrdering Facility: [facility] Address:[address] [place], [place] [address]Performed By: #### 70981-7 ####[facility] LABCLIA [id number] [address] [place] [address] [place] AMERICARBC FRAGMENTSFewAbnormalNone SeenHarrison Community Hospital on above:Order Comment: Specimen Type: BLOOD SPECIMENOrdering Facility: [facility] Address:[address] [place], [place] [address]Performed By: #### 34237-8 ####[facility] LABCLIA [id number] [address] [place] [address] [place] RED CELL MORPHReviewed: see results of individual morphologiesKettering Health Troy on above:Order Comment: Specimen Type: BLOOD SPECIMENOrdering Facility: [facility] Address:[address] [place], [place] [address]Performed By: #### 03398-2 ####[facility] LABCLIA [id number] [address] [place] [address] [place] [facility] MEDICAL CENTERTarget cells LM Ql (Bld)FewNormalCSelect Medical [facility] on above:Order Comment: Specimen Type: BLOOD SPECIMENOrdering Facility: [facility] Address:[address] [place], [place] [address]Performed By: #### 34846-6 ####[facility] LABCLIA [id number] [place] [address] [place] AMERICAWBC (Bld) [#/Vol]13.65 10*3/uLHigh3.70-11.00[facility] on above:Order Comment: Specimen Type: BLOOD SPECIMENOrdering Facility: [facility] Address:[address] [place], [place] [address]Performed By: #### 41649-8 ####[facility] LABCLIA [id number] [place] [address] [place] AMERICAWBC Left Shift Ql (Bld)Present NormalHarrison Community Hospital on above:Order Comment: Specimen Type: BLOOD SPECIMENOrdering Facility: [facility] Address:[address] [place], [place] [address]Performed By: #### 09876-3 ####[facility] LABCLIA [id number] [place] [address] [place] AMERICACONSULT PROGon 31-36-6049DYXVCPH PROGNormalWyandot Memorial HospitalComprehensive metabolic 2000 panelon 69-40-7306Aysozbm [Mass/Vol]2.2 g/dLLow3.9-4.9CSelect [facility] on above:Order Comment: Specimen Type: BLOOD SPECIMENOrdering Facility: [facility] Address:[address] [place], [place] [address]Performed By: #### 14370-3, , 2776-04 ####[facility] LABCLIA [id number] [address] [place] AMERICAALP [Catalytic activity/Vol]347 U/PFjzm40-781CyasarlakHarrison Community Hospital on above:Order Comment: Specimen Type: BLOOD SPECIMENOrdering Facility: [facility] Address:[address] [place], [place] [address]Performed By: #### 57852-0, 88304-5, 2776-1 ####[facility] LABCLIA [id number] AVENUENOVATO COMMUNITY HOSPITALK [address] [place] [address] [place] AMERICAALT [Catalytic activity/Vol]35 U/HYjhrtl82-02XcpxqkqoaHarrison Community Hospital on above:Order Comment: Specimen Type: BLOOD SPECIMENOrdering Facility: [facility] Address:[address] [place], [place] [address]Performed By: #### 55498-3, 93138-0, 2776-04 ####[facility] LABCLIA [id number] AVENUEMICHELLE [place]IL[place] [id number] [place] AMERICAAnion gap [Moles/Vol]15 mmol/L Normal8-15[facility] on above:Order Comment: Specimen Type: BLOOD SPECIMENOrdering Facility: [facility] Address:[address] [place], [place] [address]Performed By: #### 16374-6, , 2776-04 ####[facility] LABCLIA [id number] [place] [id number] [place] AMERICAAST [Catalytic activity/Vol]38 U/KJtcfdy87-23JdiuukwluHarrison Community Hospital on above:Order Comment: Specimen Type: BLOOD SPECIMENOrdering Facility: [facility] Address:[address] [place], [place] [address]Performed By: #### 78590-8, , 2776-04 ####[facility] LABCLIA [id number] [place] [id number] [place] OF AMERICABilirubin [Mass/Vol]0.4 mg/dL Normal0.2-1.3CSelect [facility] on above:Order Comment: Specimen Type: BLOOD SPECIMENOrdering Facility: [facility] Address:[address] [place], [place] [address]Performed By: #### 16705-2, 17127-0, 2776-04 ####[facility] LABCLIA [id number] [address] [place] [address] [place] AMERICACalcium [Mass/Vol]8.7 mg/dLNormal 8.5-10.2CSelect [facility] on above:Order Comment: Specimen Type: BLOOD SPECIMENOrdering Facility: [facility] Address:[address] [place], [place] [address]Performed By: #### 15178-8, 94087-3, 2776-04 ####[facility] LABCLIA [id number] [address] [address] [place] AMERICAChloride [Moles/Vol]101 mmol/L Wnpicv65-858MuqkcycgfHarrison Community Hospital on above:Order Comment: Specimen Type: BLOOD SPECIMENOrdering Facility: [facility] Address:[address] [place], [place] [address]Performed By: #### 77134-8, , 2776-04 ####[facility] LABCLIA [id number] [address] [place] AMERICACO2 [Moles/Vol]19 mmol/HIje77-80 [facility] on above:Order Comment: Specimen Type: BLOOD SPECIMENOrdering Facility: [facility] Address:[address] [place], [place] [address]Performed By: #### 66198-1, , 2776-04 ####[facility] LABCLIA [id number] [address] [address] [place] AMERICACreatinine [Mass/Vol]0.68 mg/dLLow0.73-1.22 [facility] on above:Order Comment: Specimen Type: BLOOD SPECIMENOrdering Facility: [facility] Address:[address] [place], [place] [address]Performed By: #### 98315-5, , 2776-04 ####[facility] LABCLIA [id number] [address] [address] [place] AMERICAeGFRcr SerPlBld CKD-EPI 278390 mL/min/1.73m??? Normal>=60[facility] on above:Order Comment: Specimen Type: BLOOD SPECIMENOrdering Facility: [facility] Address:[address] [place] [address]Kicckf Comment: Estimated Glomerular Filtration Rate (eGFR) is calculated using the 2020 CKD-EPI creatinine equation. This equation utilizes serum creatinine, sex, and age as parameters. The creatinine assay has traceable calibration to isotope dilution-mass spectrometry. Refer to KDIGO guidelines for clinical interpretation. In patients with unstable renal function, e.g. those with acute kidney injury, the eGFR may not accurately reflect actual GFR.Performed By: #### 39786-8, 04095-5, 2776-04 ####[facility] LABIA [id number] [address] [place] AMERICAGlucose [Mass/Vol]99 mg/bVHpbsxy37-89MriovzrowHarrison Community Hospital on above:Order Comment: Specimen Type: BLOOD SPECIMENOrdering Facility: [facility] Address:[address] [place], [place] [address] [id number] Comment: The [place] Diabetes Association (ADA) provides guidance for cutoff [...] Standards of Medical Care in Diabetes 2016, [place] [employer] Association. Diabetes Care. 2016.39(Suppl 1).Performed By: #### 03017- 8, , 2776-04 ####[facility] LABIA [id number] [address] [place] AMERICAPotassium [Moles/Vol] 4.4 mmol/LNormal3.7-5.1CSelect [facility] on above:Order Comment: Specimen Type: BLOOD SPECIMENOrdering Facility: [facility] Address:[address] [place], [place] [address]Performed By: #### 59062-7, 26228-5, 2776-04 ####[facility] LABCLIA [id number] [address] [place] AMERICAProtein [Mass/Vol]5.6 g/dLLow 6.3-8.0[facility] on above:Order Comment: Specimen Type: BLOOD SPECIMENOrdering Facility: [facility] Address:[address] [place], [place] [address]Performed By: #### 07222-1, 75749-0, 2776-04 ####[facility] LABCLIA [id number] [place]IL[place] [address] [place] AMERICASodium [Moles/Vol]135 mmol/LLow 136-144Main Campus Medical Centerment on above:Order Comment: Specimen Type: BLOOD SPECIMENOrdering Facility: [facility] Address:[address] [place], [place] [address]Performed By: #### 40441-1, 31961-7, 2776-04 ####[facility] LABIA [id number] VILLE [address] [place] AMERICAUrea nitrogen [Mass/Vol]25 mg/dL High9-24[facility] on above:Order Comment: Specimen Type: BLOOD SPECIMENOrdering Facility: [facility] Address:[address] [place], [place] [address]Performed By: #### 36282-9, 70363-6, 2776-04 ####[facility] LABIA [id number] [address] [place] AMERICAMagnesium SerPl-mCncon 01-10-2025 Magnesium [Mass/Vol]1.7 mg/dLNormal1.7-2.3CSelect [facility] Special[facility] on above:Order Comment: Specimen Type: BLOOD SPECIMENOrdering Facility: [facility] Address:[address] [place], [place] [address]Thxtfnjex By: #### 60429-9, 91054-0, 7-1 ####[facility] LABCLIA [id number] VILLE [id number] [facility] NURSING PROGon 50-91-8748YTCHKLI PROGNormalWyandot Memorial HospitalPhosphate SerPl-ncon 90-01-7382Ufdofwgfq [Mass/Vol]4.0 mg/dLNormal2.7-4.8CSelect [facility] Specialty [facility] on above:Order Comment: Specimen Type: BLOOD SPECIMENOrdering Facility: [facility] Address:[address] [place], [place] [address]Performed By: #### 41760-6, 53824-4, 27710-15 ####[facility] LABCLIA [id number]ETTHERAPY NTon 51-37-6890IETMKIO NTNormalCPomerene HospitalTHERAPY NTNormalCPomerene HospitalTacrolimus Bld-ncon 73-43-0128Umjaqhjwtp (Bld) [Mass/Vol]9.7 ng/mLNormal5.0-20.0[facility] on above:Order Comment: Specimen Type: BLOOD SPECIMENOrdering Facility: [facility] Address:[address] [place], [place] [address]Result Comment: Individualized target levels for a given [...] situation. Test performed by chemiluminescent immunoassay using KupiBonus Alinity i.Performed By: #### 00320-8 ####[facility] LABCLIA [id number] [place] [address] [place] AMERICAXR ABDOMEN 1V SUPINEon 01-10-2025 XR ABDOMEN 1V SUPINENormalCPomerene HospitalXR ABDOMEN 1V SUPINENormal [facility] HospitalCASE MANAGEMon 95-93-6214IIPY MANAGEMNormalMemorial Health System [facility] W Auto Differential panel (Bld)on 36-19-6645Wmmatqjnbgkh Ql (Bld)PresentNormalCSelect [facility] on above:Order Comment: Specimen Type: BLOOD SPECIMENOrdering Facility: [facility] Address:[address] [place], [place] [address]Performed By: #### 79987-7 ####[facility] LABCLIA [id number] [place] [address] [place] AMERICABasophils (Bld) [#/Vol]0.20 10*3/uLHigh<0.11CSelect [facility] on above:Order Comment: Specimen Type: BLOOD SPECIMENOrdering Facility: [facility] Address:[address] [place], [place] [address]Performed By: #### 25582-0 ####[facility] LABCLIA [id number] [place] [address] [place] AMERICABasophils/100 WBC (Bld)2.0 % NormalHarrison Community Hospital on above:Order Comment: Specimen Type: BLOOD SPECIMENOrdering Facility: [facility] Address:[address] [place], [place] [address]Performed By: #### 29740-1 ####[facility] LABCLIA [id number] [place] [id number] [place] AMERICADifferential cell count method Nom (Bld)ManualNoToledo Hospital on above:Order Comment: Specimen Type: BLOOD SPECIMENOrdering Facility: [facility] Address:[address] [place], [place] [address]Performed By: #### 41667-1 ####[facility] LABCLIA [id number] [place] [id number] [place] AMERICAEosinophils (Bld) [#/Vol]0.00 10*3/uLNormal<0.46[facility] on above:Order Comment: Specimen Type: BLOOD SPECIMENOrdering Facility: [facility] Address:[address] [place], [place] [address]Performed By: #### 38250-3 ####[facility] LABIA [id number] [place] [address] [place] Eosinophils/100 WBC (Bld)0.0 %NormalHarrison Community Hospital on above: Order Comment: Specimen Type: BLOOD SPECIMENOrdering Facility: [facility] Address:[address] [place], [place] [address]Performed By: #### 68667- 8 ####[facility] LABIA [id number] [address], [place] [address] [place] OF AMERICAErythrocyte distribution width (RBC) [Ratio]18.6 %High11.5-15.0[facility] on above:Order Comment: Specimen Type: BLOOD SPECIMENOrdering Facility: [facility] Address:[address] [place], [place] [address]Performed By: #### [id number]- [id number] ####[facility] [id number] [place] [address] [place] OF AMERICAHematocrit (Bld) [Volume fraction]26.6 %Low39.0-51.0[facility] on above:Order Comment: Specimen Type: BLOOD SPECIMENOrdering Facility: [facility] Address:[address] [place], [place] [address]Performed By: #### [id number]- 8 ####[facility] [id number] [place] [address] [place] AMERICAHemoglobin (Bld) [Mass/Vol]8.1 g/dLLow13.0-17.0[facility] on above:Order Comment: Specimen Type: BLOOD SPECIMENOrdering Facility: [facility] Address:[address] [place], [place] [address]Performed By: #### [id number] ####[facility] [id number] [place] [address] [place] [facility] MEDICAL CENTERLymphocytes (Bld) [#/Vol]0.70 10*3/uLLow1.00-4.00[facility] on above:Order Comment: Specimen Type: BLOOD SPECIMENOrdering Facility: [facility] Address:[address] [place], [place] [address]Performed By: #### 73655-8 ####[facility] LABIA [id number] [place] [address] [place] OF AMERICALymphocytes/100 WBC (Bld)7.0 % NormalHarrison Community Hospital on above:Order Comment: Specimen Type: BLOOD SPECIMENOrdering Facility: [facility] Address:[address] [place], [place] [address]Performed By: #### 45411-0 ####[facility] LABIA [id number] [place] [address] [place] AMERICAMCH (RBC) [Entitic mass]30.1 ajDijwyh40.0-34.0[facility] on above:Order Comment: Specimen Type: BLOOD SPECIMENOrdering Facility: [facility] Address:[address] [place], [place] [address]Performed By: #### 57087-1 ####[facility] LABIA [id number] [place] [address] [place] MCHC (RBC) [Mass/Vol]30.5 g/nPBiahyr38.5-36.0[facility] on above:Order Comment: Specimen Type: BLOOD SPECIMENOrdering Facility: [facility] Address:[address] [place] [address] Performed By: #### 27596-7 ####[facility] LABCLIA [id number] [address] [place] [address] [place] MCV (RBC) [Entitic vol]98.9 mLQgnavx90.0-100.0[facility] on above:Order Comment: Specimen Type: BLOOD SPECIMENOrdering Facility: [facility] Address:[address] [place] [address] Performed By: #### 13980-9 ####[facility] LABCLIA [id number] [address] [place] [address] [place] Metamyelocytes/100 WBC (Bld)9.0 %NormalHarrison Community Hospital on above:Order Comment: Specimen Type: BLOOD SPECIMENOrdering Facility: [facility] Address:[address] [place], [place] [address]Performed By: #### 30100-3 ####[facility] LABIA [id number] [address], [place] [address] [place] OF AMERICAMonocytes (Bld) [#/Vol]1.11 10*3/uLHigh<0.87[facility] on above:Order Comment: Specimen Type: BLOOD SPECIMENOrdering Facility: [facility] Address:[address] [place], [place] [address]Performed By: #### 66237- 8 ####[facility] LABCLIA [id number] [address], [facility]95 [place] AMERICAMonocytes/100 WBC (Bld)11.0 % NormalHarrison Community Hospital on above:Order Comment: Specimen Type: BLOOD SPECIMENOrdering Facility: [facility] Address:[address] [place], [place] [address]Performed By: #### 38395-6 ####[facility] LABCLIA [id number] [address], [facility]95 [place] AMERICAMYELO%1.0 %NormalHarrison Community Hospital on above: Order Comment: Specimen Type: BLOOD SPECIMENOrdering Facility: [facility] Address:[address] [place], [place] [address]Performed By: #### 89203- 8 ####[facility] LABCLIA [id number] [address], [place] [address] [place] AMERICANeutrophils (Bld) [#/Vol]7.04 10*3/uLNormal1.45-7.50[facility] on above:Order Comment: Specimen Type: BLOOD SPECIMENOrdering Facility: [facility] Address:[address] [place], [place] [address]Performed By: #### 77593-3 ####[facility] LABIA [id number] [place] [address] [place] AMERICANeutrophils/100 WBC (Bld)70.0 % NormalWyandot Memorial HospitalComment on above:Order Comment: Specimen Type: BLOOD SPECIMENOrdering Facility: [facility] Address:[address] [place], [place] [address]Performed By: #### 72284-9 ####[facility] LABIA [id number] [address], [place] [address] [place] AMERICANucleated RBC (Bld) [#/Vol]10*3/uLNormal<0.01[facility] on above:Order Comment: Specimen Type: BLOOD SPECIMENOrdering Facility: [facility] Address:[address] [place], [place] [address]Performed By: #### 80298-5 ####[facility] LABCLIA [id number] [address], [facility]95 [place] Nucleated RBC/100 WBC (Bld) [Ratio]0.0 /100 WBCNormalCPomerene Hospital Comment on above:Order Comment: Specimen Type: BLOOD SPECIMENOrdering Facility: [facility] Address:[address] [place] [address] Performed By: #### 48583-9 ####[facility] LABCLIA [id number] [place] [address] [place] Ovalocytes LM Ql (Bld)FewNormalCSelect [facility] on above:Order Comment: Specimen Type: BLOOD SPECIMENOrdering Facility: [facility] Address:[address] [place], [place] [address]Performed By: #### 01451- 8 ####[facility] LABCLIA [id number] [place] [address] [place] AMERICAPlatelet mean volume (Bld) [Entitic vol]10.5 fLNormal9.0-12.7CSelect Medical Specialty [facility] on above: Order Comment: Specimen Type: BLOOD SPECIMENOrdering Facility: [facility] Address:[address] [place], [place] [address]Performed By: #### 65138- 8 ####[facility] LABCLIA [id number] [place] [address] [place] AMERICAPlatelets (Bld) [#/Vol]339 10*3/oWKtoswu454-160OqmkgheadHarrison Community Hospital on above:Order Comment: Specimen Type: BLOOD SPECIMENOrdering Facility: [facility] Address:[address] [place], [place] [address]Performed By: #### 13803-4 ####[facility] LABCLIA [id number] [place] [address] [place] AMERICAPlatelets Estimate (Bld) [#/Vol] AdequateNormalCSelect Medical [facility] on above:Order Comment: Specimen Type: BLOOD SPECIMENOrdering Facility: [facility] Address:[address] [place], [place] [address]Performed By: #### 76830-2 ####[facility] LABCLIA [id number] [place] [address] [place] AMERICAPolychromasia LM Ql (Bld)SlightNormalCSelect [facility] on above:Order Comment: Specimen Type: BLOOD SPECIMENOrdering Facility: [facility] Address:[address] [place], [place] [address]Performed By: #### 81379-5 ####[facility] LABCLIA [id number] [address] [place] [address] [place] RBC (Bld) [#/Vol]2.69 10*6/uLLow4.20-6.00[facility] on above:Order Comment: Specimen Type: BLOOD SPECIMENOrdering Facility: [facility] Address:[address] [place], [place] [address]Performed By: #### 22937-2 ####[facility] LABCLIA [id number] [address], [address] OF AMERICARBC FRAGMENTSFew AbnormalNone SeenHarrison Community Hospital on above:Order Comment: Specimen Type: BLOOD SPECIMENOrdering Facility: [facility] Address:[address] [place], [place] [address]Performed By: #### 70524-1 ####[facility] LABCLIA [id number] [address], [facility]95 [place] AMERICARED CELL MORPHReviewed: see results of individual morphologiesKettering Health Troy on above:Order Comment: Specimen Type: BLOOD SPECIMENOrdering Facility: [facility] Address:[address] [place], [place] [address]Performed By: #### 58989-8 ####[facility] LABCLIA [id number] [address] [place] [address] [place] [facility] MEDICAL CENTERTarrockefeller war [facility] cells LM Ql (Bld)[facility] on above:Order Comment: Specimen Type: BLOOD SPECIMENOrdering Facility: [facility] Address:[address] [place], [place] [address]Performed By: #### 86528-2 ####[facility] LABCLIA [id number] [address] [place] [address] [place] AMERICAWBC (Bld) [#/Vol]10.06 10*3/uLNormal3.70-11.00[facility] on above:Order Comment: Specimen Type: BLOOD SPECIMENOrdering Facility: [facility] Address:[address] [place], [place] [address]Performed By: #### 35193-1 ####[facility] LABCLIA [id number] [place] [address] [place] AMERICAWBC Left Shift Ql (Bld)PresentNormalCSelect Medical [facility] on above:Order Comment: Specimen Type: BLOOD SPECIMENOrdering Facility: [facility] Address:[address] [place], [place] [address]Performed By: #### 20335-1 ####[facility] LABCLIA [id number] [place] [address] [place] AMERICACCF BACTERIA UR CULTon 10-94-2205OXL BACTERIA UR CULTORGANISM ID: 1AbnormalNOMS HealthcareCCF BACTERIA UR CULT10,000 -<50,000 CFU/ml Mixed microbiotaNOMS HealthcareCCF BACTERIA UR CULTNo further workupNOMS HealthcareInterpretation and review of laboratory resultsAbnormalOREM COMMUNITY [facility] HealthcareOriginal Ordering Provider: [facility] HealthcareComprehensive metabolic 2000 panelon 22-23-7012Dsrsjoq [Mass/Vol]2.1 g/dLLow3.9-4.9CSelect Medical Specialty [facility] on above:Order Comment: Specimen Type: BLOOD SPECIMENOrdering Facility: [facility] Address:[address] [place], [place] [address]Performed By: #### 75977- 8, 51130-3, 2777-1 ####[facility] LABIA [id number] [address] [place] AMERICAALP [Catalytic activity/Vol]363 U/UGmwf94-744HvjlbzybcH[facility] Hospital on above:Order Comment: Specimen Type: BLOOD SPECIMENOrdering Facility: [facility] Address:[address] [place], [place] [address]Performed By: #### 78066- 8, 41990-3, 2776- ####[facility] LABCLIA [id number] [address] [place] AMERICAALT [Catalytic activity/Vol]33 U/ZZarbqk02-61RwhajstkjHarrison Community Hospital on above:Order Comment: Specimen Type: BLOOD SPECIMENOrdering Facility: [facility] Address:[address] [place], [place] [address]Performed By: #### 34978- 8, 82161-2, 2776-04 ####[facility] LABCLIA [id number] [place]IL[place] [address] [place] AMERICAAnion gap [Moles/Vol] 13 mmol/LNormal8-15[facility] on above:Order Comment: Specimen Type: BLOOD SPECIMENOrdering Facility: [facility] Address:[address] [place], [place] [address]Performed By: #### 75684-0, , 2776-04 ####[facility] LABCLIA [id number] VILLE [address] [place] AMERICAAST [Catalytic activity/Vol]30 U/FPggydi96-85EbkcbxyktHarrison Community Hospital on above:Order Comment: Specimen Type: BLOOD SPECIMENOrdering Facility: [facility] Address:[address] [place], [place] [address]Performed By: #### 41555-5, , 2776-04 ####[facility] LABCLIA [id number] [address] [address] [place] AMERICABilirubin [Mass/Vol]0.3 mg/dL Normal0.2-1.3CSelect Medical Specialty [facility] on above:Order Comment: Specimen Type: BLOOD SPECIMENOrdering Facility: [facility] Address:[address] [place], [place] [address]Performed By: #### 02393-7, 44064-9, 2776- ####[facility] LABCLIA [id number] [place] [address] [place] AMERICACalcium [Mass/Vol]8.2 mg/dLLow 8.5-10.2CSelect Medical Specialty [facility] on above:Order Comment: Specimen Type: BLOOD SPECIMENOrdering Facility: [facility] Address:[address] [place], [place] [address]Performed By: #### 19280-3, 85130-5, 2776-04 ####[facility] LABCLIA [id number] VILLE [address] [place] AMERICAChloride [Moles/Vol]103 mmol/L Aydaxa24-112AkjpiltsmHarrison [facility] Hospital on above:Order Comment: Specimen Type: BLOOD SPECIMENOrdering Facility: [facility] Address:[address] [place], [place] [address]Performed By: #### 73526-1, 21939-3, 2776-04 ####[facility] LABIA [id number] VILLE [address] [place] AMERICACO2 [Moles/Vol]21 mmol/BQza66-28 [facility] on above:Order Comment: Specimen Type: BLOOD SPECIMENOrdering Facility: [facility] Address:[address] [place], [place] [address]Performed By: #### 88422-1, 16137-9, 2776-04 ####[facility] LABIA [id number] VILLE [address] [place] AMERICACreatinine [Mass/Vol]0.60 mg/dLLow0.73-1.22 [facility] on above:Order Comment: Specimen Type: BLOOD SPECIMENOrdering Facility: [facility] Address:[address] [place], [place] [address]Performed By: #### 62906-4, 11401-8, 2776- ####[facility] LABCLIA [id number] [place]LE [address] [place] AMERICAeGFRcr SerPlBld CKD-EPI 9964105 mL/min/1.73m??? Normal>=60[facility] on above:Order Comment: Specimen Type: BLOOD SPECIMENOrdering Facility: [facility] Address:[address] [place], [place] [address]Result Comment: Estimated Glomerular Filtration Rate (eGFR) is calculated using the 2020 CKD-EPI creatinine equation. This equation utilizes serum creatinine, sex, and age as parameters. The creatinine assay has traceable calibration to isotope dilution-mass spectrometry. Refer to KDIGO guidelines for clinical interpretation. In patients with unstable renal function, e.g. those with acute kidney injury, the eGFR may not accurately reflect actual GFR.Performed By: #### 69878-8, 65606-9, 2776- ####[facility] LABCLIA [id number] [address] [place] AMERICAGlucose [Mass/Vol]123 mg/rZWivv71-20CfpwiyyzoHarrison Community Hospital on above:Order Comment: Specimen Type: BLOOD SPECIMENOrdering Facility: [facility] Address:[address] [place], [place] [address]Result Comment: The [place] Diabetes Association (ADA) provides guidance for cutoff [...] Standards of Medical Care in Diabetes 2016, [place] [employer] Association. Diabetes Care. 2016.39(Suppl 1).Performed By: #### 90285- 8, 51073-9, 2776- ####[facility] LABIA [id number] [address] [place] AMERICAPotassium [Moles/Vol] 4.3 mmol/LNormal3.7-5.1CSelect Medical Specialty [facility] on above:Order Comment: Specimen Type: BLOOD SPECIMENOrdering Facility: [facility] Address:[address] [place], [place] [address]Performed By: #### 88543-8, 37438-5, 2776-04 ####[facility] LABCLIA [id number] [address] [place] AMERICAProtein [Mass/Vol]5.1 g/dLLow 6.3-8.0[facility] on above:Order Comment: Specimen Type: BLOOD SPECIMENOrdering Facility: [facility] Address:[address] [place], [place] [address]Performed By: #### 77280-0, , 2776-04 ####[facility] LABCLIA [id number] [address] [place] AMERICASodium [Moles/Vol]137 mmol/L Bcwipg271-543HxwkpefutHarrison Community Hospital on above:Order Comment: Specimen Type: BLOOD SPECIMENOrdering Facility: [facility] Address:[address] [place], [place] [address]Performed By: #### 19346-4, , 2776-04 ####[facility] LABCLIA [id number] [place] [id number] [place] AMERICAUrea nitrogen [Mass/Vol]25 mg/dL High9-24[facility] on above:Order Comment: Specimen Type: BLOOD SPECIMENOrdering Facility: [facility] Address:[address] [place], [place] [address]Performed By: #### 92349-4, , 2776-04 ####[facility] LABCLIA [id number] [place] [address] [place] AMERICAMagnesium SerPl-mCncon 01-09-2025 Magnesium [Mass/Vol]1.9 mg/dLNormal1.7-2.3[facility] ClevelandComment on above:Order Comment: Specimen Type: BLOOD SPECIMENOrdering Facility: [facility] Address:[address] [place], [place] [address]Performed By: #### 93387-0, 81434-3, 2777-1 ####[facility] LABCLIA [id number] [place] [address] [place] Phosphate SerPl-mCncon 77-31-5316Oerqmnccd [Mass/Vol]4.4 mg/dLNormal2.7-4.8 [facility] on above:Order Comment: Specimen Type: BLOOD SPECIMENOrdering Facility: [facility] Address:[address] [place], [place] [address]Performed By: #### 73478-5, 29992-3, 2777- ####[facility] LABCLIA [id number] [address] [place] AMERICATHERAPY NTon 58-96-1624RAIRWXT NTNormalCleveland FirsthealthTHERAPY NTNormalCtrumbull regional medical centerand FirsthealthTHERAPY NTNormal [facility] Memorial HospitalTYPE + SCREENon 04-32-3643SPHJNipbgwTghtmeuzySelect Medical Specialty [facility] on above:Order Comment: Specimen Type: BLOOD SPECIMENOrdering Facility: [facility] Address:[address] [place], [place] [address]Performed By: #### TSCR ####[facility] BLOOD BANKCLIA [id number] [place] [address] [place] AMERICARh Nom (Bld)Positive NormalHarrison Community Hospital on above:Order Comment: Specimen Type: BLOOD SPECIMENOrdering Facility: [facility] Address:[address] [place], [place] [address]Performed By: #### TSCR ####[facility] BLOOD BANKCLIA [id number] [place] [address] [place] AMERICATYPE AND SCREEN QLQFTVPYXF10/28/2025 23:59NormalCSelect Medical [facility] on above:Order Comment: Specimen Type: BLOOD SPECIMENOrdering Facility: [facility] Address:[address] [place], [place] [address]Performed By: #### TSCR ####CC [facility] BLOOD BANKCLIA [id number] [place] [address] [place] [facility] MEDICAL CENTERTacrolimus Bld-mCncon 64-53-3197Kkjbredjao (Bld) [Mass/Vol]10.2 ng/mLNormal5.0-20.0[facility] on above:Order Comment: Specimen Type: BLOOD SPECIMENOrdering Facility: [facility] Address:[address] [place], [place] [address]Result Comment: Individualized target levels for a given [...] situation. Test performed by chemiluminescent immunoassay using KupiBonus Alinity i.Performed By: #### 90552-9 ####[facility] LABCLIA [id number] [place] [address] [place] AMERICABacteria Ur Culton 01-08-2025 Bacteria identified Cx Nom (U)ORGANISM ID: 1 10,000 -<50,000 CFU/ml Mixed microbiota No further workupNormalCSelect Medical [facility] on above:Performed By: #### 630-4 ####[facility] LABCLIA [id number] [place] [address] [place] AMERICACBC W Auto Differential panel (Bld)on 96-45-7650Pbwvtmkmakvx Ql (Bld)PresentNormSt. John of God Hospital on above:Order Comment: Specimen Type: BLOOD SPECIMENOrdering Facility: [facility] Address:[address] [place], [place] [address]Performed By: #### 98701-4 ####[facility] LABCLIA [id number] [place] [address] [place] AMERICABasophils (Bld) [#/Vol]0.09 10*3/uLNormal<0.11CPomerene Hospital Comment on above:Order Comment: Specimen Type: BLOOD SPECIMENOrdering Facility: [facility] Address:[address] [place] [address] Performed By: #### 42075-8 ####[facility] LABCLIA [id number] [place] [address] [place] Basophils/100 WBC (Bld)0.9 %NormalHarrison Community Hospital on above: Order Comment: Specimen Type: BLOOD SPECIMENOrdering Facility: [facility] Address:[address] [place], [place] [address]Performed By: #### 21789- 8 ####[facility] LABCLIA [id number] [place] [address] [place] AMERICADifferential cell count method Nom (Bld)ManualNormalCSelect Medical [facility] on above:Order Comment: Specimen Type: BLOOD SPECIMENOrdering Facility: [facility] Address:[address] [place], [place] [address]Performed By: #### 31099-7 ####[facility] LABCLIA [id number] [place] [address] [place] AMERICAEosinophils (Bld) [#/Vol]0.00 10*3/uLNormal<0.46[facility] on above:Order Comment: Specimen Type: BLOOD SPECIMENOrdering Facility: [facility] Address:[address] [place], [place] [address]Performed By: #### 30896-5 ####[facility] LABCLIA [id number] [place] [address] [place] AMERICAEosinophils/100 WBC (Bld)0.0 % NormalHarrison Community Hospital on above:Order Comment: Specimen Type: BLOOD SPECIMENOrdering Facility: [facility] Address:[address] [place], [place] [address]Performed By: #### 70935-2 ####[facility] LABIA [id number] [place] [address] [place] AMERICAErythrocyte distribution width (RBC) [Ratio]18.4 %High11.5-15.0 [facility] Centerment on above:Order Comment: Specimen Type: BLOOD SPECIMENOrdering Facility: [facility] Address:[address] [place], [place] [address]Performed By: #### 10448-6 ####[facility] [id number] [place] [address] [place] AMERICAHematocrit (Bld) [Volume fraction]23.9 %Low39.0-51.0[facility] Campus Medical Centerment on above:Order Comment: Specimen Type: BLOOD SPECIMENOrdering Facility: [facility] Address:[address] [place], [place] [address]Performed By: #### 03644-6 ####[facility] [id number] [place] [address] [place] Hemoglobin (Bld) [Mass/Vol]7.5 g/dLLow13.0-17.0[facility] on above:Order Comment: Specimen Type: BLOOD SPECIMENOrdering Facility: [facility] Address:[address] [place] [address] Performed By: #### 29393-8 ####[facility] LABIA [id number] [place] [address] [place] Lymphocytes (Bld) [#/Vol]0.44 10*3/uLLow1.00-4.00[facility] Comment on above:Order Comment: Specimen Type: BLOOD SPECIMENOrdering Facility: [facility] Address:[address] [place] [address] Performed By: #### 05689-8 ####[facility] LABIA [id number] [address], [address] [facility] Lymphocytes/100 WBC (Bld)4.5 %NormalHarrison Community Hospital on above: Order Comment: Specimen Type: BLOOD SPECIMENOrdering Facility: [facility] Address:[address] [place], [place] [address]Performed By: #### 85647- 8 ####[facility] LABIA [id number] [address], [address] (RBC) [Entitic mass]30.5 pg Ncpyba66.0-34.0[facility] on above:Order Comment: Specimen Type: BLOOD SPECIMENOrdering Facility: [facility] Address:[address] [place], [place] [address]Performed By: #### 21615-4 ####[facility] LABIA [id number] [address] (RBC) [Mass/Vol]31.4 g/dL Fubwog50.5-36.0[facility] on above:Order Comment: Specimen Type: BLOOD SPECIMENOrdering Facility: [facility] Address:[address] [place], [place] [address]Performed By: #### 35207-0 ####[facility] LABIA [id number] [address] (RBC) [Entitic vol]97.2 fL Qbttwv71.0-100.0[facility] on above:Order Comment: Specimen Type: BLOOD SPECIMENOrdering Facility: [facility] Address:[address] [place], [place] [address]Performed By: #### 38854-9 ####[facility] LABIA [id number] [address]ETMetamyelocytes/100 WBC (Bld)1.8 % NormalCleveland Clinic ClevelandComment on above:Order Comment: Specimen Type: BLOOD SPECIMENOrdering Facility: [facility] Address:[address] [place], [place] [address]Performed By: #### 05552-0 ####[facility] LABCLIA [id number] [address] [place] [address] [place] AMERICAMonocytes (Bld) [#/Vol]0.79 10*3/uLNormal<0.87[facility] on above:Order Comment: Specimen Type: BLOOD SPECIMENOrdering Facility: [facility] Address:[address] [place], [place] [address]Performed By: #### [id number] ####[facility] LABCLIA [id number] [place] [address] [place] Monocytes/100 WBC (Bld)8.1 %[facility] on above: Order Comment: Specimen Type: BLOOD SPECIMENOrdering Facility: [facility] Address:[address] [place], [place] [address]Performed By: #### [id number]- [id number] ####[facility] LABCLIA [id number] [place] [address] [place] AMERICAMYELO%4.5 %[facility] on above:Order Comment: Specimen Type: BLOOD SPECIMENOrdering Facility: [facility] Address:[address] [place], [place] [address]Performed By: #### [id number] ####[facility] LABCLIA [id number] [place] [id number] [place] Neutrophils (Bld) [#/Vol]7.83 10*3/uLHigh1.45-7.50[facility] Comment on above:Order Comment: Specimen Type: BLOOD SPECIMENOrdering Facility: [facility] Address:[address] [place] [address] Performed By: #### 23880-5 ####[facility] LABCLIA [id number] [address], [place] [address] [place] Neutrophils/100 WBC (Bld)80.2 %NormalHarrison Community Hospital on above: Order Comment: Specimen Type: BLOOD SPECIMENOrdering Facility: [facility] Address:[address] [place], [place] [address]Performed By: #### 31457- 8 ####[facility] LABCLIA [id number] [address], [place] [address] [place] AMERICANucleated RBC (Bld) [#/Vol] 10*3/uLNormal<0.01[facility] on above:Order Comment: Specimen Type: BLOOD SPECIMENOrdering Facility: [facility] Address:[address] [place], [place] [address]Performed By: #### 32003-9 ####[facility] LABIA [id number] [place] [address] [place] AMERICANucleated RBC/100 WBC (Bld) [Ratio]0.0 /100 WBCNormalCSelect Medical [facility] on above:Order Comment: Specimen Type: BLOOD SPECIMENOrdering Facility: [facility] Address:[address] [place], [place] [address]Performed By: #### 12056- 8 ####[facility] LABCLIA [id number] [place] [address] [place] AMERICAOvalocytes LM Ql (Bld)FewNormal [facility] on above:Order Comment: Specimen Type: BLOOD SPECIMENOrdering Facility: [facility] Address:[address] [place], [place] [address]Performed By: #### 09548-9 ####[facility] LABCLIA [id number] [place] [address] [place] AMERICAPlatelet mean volume (Bld) [Entitic vol]10.5 fLNormal9.0-12.7CSelect [facility]ty [facility] on above:Order Comment: Specimen Type: BLOOD SPECIMENOrdering Facility: [facility] Address:[address] [place], [place] [address]Performed By: #### 30804-2 ####[facility] LABCLIA [id number] [address] [place] [address] [place] AMERICAPlatelets (Bld) [#/Vol]297 10*3/zMFaglzq458-741BncsbtpnfWyandot Memorial Hospital Comment on above:Order Comment: Specimen Type: BLOOD SPECIMENOrdering Facility: [facility] Address:[address] [place] [address] Performed By: #### 15544-3 ####[facility] LABCLIA [id number] [address] [place] [address] [place] Platelets Estimate (Bld) [#/Vol]AdequateNormalCSelect Medical [facility]ty [facility] on above:Order Comment: Specimen Type: BLOOD SPECIMENOrdering Facility: [facility] Address:[address] [place] [address] Performed By: #### 04698-4 ####[facility] LABCLIA [id number] [address] [place] [address] [place] Polychromasia LM Ql (Bld)SlightNormalCPomerene HospitalComment on above: Order Comment: Specimen Type: BLOOD SPECIMENOrdering Facility: [facility] Address:[address] [place], [place] [address]Performed By: #### 39316- 8 ####[facility] LABCLIA [id number] [address] [place] [address] [place] AMERICARBC (Bld) [#/Vol]2.46 10*6/uLLow 4.20-6.00[facility] HospitalCombronson lakeview [facility] on above:Order Comment: Specimen Type: BLOOD SPECIMENOrdering Facility: [facility] Address:[address] [place], [place] [address]Performed By: #### 32741-1 ####[facility] LABCLIA [id number] [address] [place] [address] [place] AMERICARED CELL MORPHReviewed: see results of individual morphologiesNoToledo Hospital on above:Order Comment: Specimen Type: BLOOD SPECIMENOrdering Facility: [facility] Address:[address] [place], [place] [address]Performed By: #### 89990-4 ####[facility] LABCLIA [id number] [address] [place] [address] [place] AMERICATarget cells LM Ql (Bld)FewNormal [facility] on above:Order Comment: Specimen Type: BLOOD SPECIMENOrdering Facility: [facility] Address:[address] [place], [place] [address]Performed By: #### 44341-5 ####[facility] LABIA [id number] [address], [place] [address] [place] AMERICAWBC (Bld) [#/Vol]9.76 10*3/uLNormal3.70-11.00[facility] Comment on above:Order Comment: Specimen Type: BLOOD SPECIMENOrdering Facility: [facility] Address:[address] [place] [address] Performed By: #### 81488-7 ####[facility] LABCLIA [id number] [address], [facility]95 [place] WBC Left Shift Ql (Bld)PresentNoToledo Hospital on above: Order Comment: Specimen Type: BLOOD SPECIMENOrdering Facility: [facility] Address:[address] [place], [place] [address]Performed By: #### 41063- 8 ####[facility] LABCLIA [id number] [address], [facility]95 [place] AMERICACONSULT PROGon 76-05-6855YCOAOPS PROGNormalWyandot Memorial HospitalCRP SerPl-mCncon 18-34-0823NSD [Mass/Vol] 23.9 mg/dLHigh<0.9CSelect [facility]ty [facility] on above:Order Comment: Specimen Type: BLOOD SPECIMENOrdering Facility: [facility] Address:[address] [place], [place] [address]Performed By: #### 81068-7, 1987-08, , 2776-04 ####[facility] LABCLIA [id number] [place] [address] [place] AMERICAComprehensive metabolic 2000 panelon 66-21-4275Orxqkwz [Mass/Vol]2.1 g/dLLow3.9-4.9ClevelUC Medical Center on above:Order Comment: Specimen Type: BLOOD SPECIMENOrdering Facility: [facility] Address:[address] [place], [place] [address]Performed By: #### 76178-6, 1987-08, , 2776-04 ####[facility] LABCLIA [id number] [place] [address] [place] AMERICAALP [Catalytic activity/Vol]409 U/LZaqb03-535TbaildujaHarrison Community Hospital on above:Order Comment: Specimen Type: BLOOD SPECIMENOrdering Facility: [facility] Address:[address] [place], [place] [address]Performed By: #### 39578-7, 1987-08, , 2776-04 ####[facility] LABCLIA [id number] [place] [address] [place] AMERICAALT [Catalytic activity/Vol]37 U/HBbgfmc36-99PavwzpnovHarrison Community Hospital on above:Order Comment: Specimen Type: BLOOD SPECIMENOrdering Facility: [facility] Address:[address] [place], [place] [address]Performed By: #### 81885-2, 1987-08, , 2776-04 ####[facility] LABCLIA [id number] [place] [address] [place] AMERICAAnion gap [Moles/Vol]11 mmol/L Normal8-15[facility] on above:Order Comment: Specimen Type: BLOOD SPECIMENOrdering Facility: [facility] Address:[address] [place], [place] [address]Performed By: #### 07754-2, 1987-08, , 2776-04 ####[facility] LABCLIA [id number] [place] [address] [place] AMERICAAST [Catalytic activity/Vol]28 U/REkqofa82-97OlzdkkukjHarrison Community Hospital on above:Order Comment: Specimen Type: BLOOD SPECIMENOrdering Facility: [facility] Address:[address] [place], [place] [address]Performed By: #### 73224-1, 1987-08, , 2776-04 ####[facility] LABCLIA [id number] [place] [address] [place] AMERICABilirubin [Mass/Vol]0.3 mg/dL Normal0.2-1.3CSelect [facility] Specialty [facility] on above:Order Comment: Specimen Type: BLOOD SPECIMENOrdering Facility: [facility] Address:[address] [place], [place] [address]Performed By: #### 99526-5, 1987-08, , 2776-04 ####[facility] LABCLIA [id number] [address] [address] [place] AMERICACalcium [Mass/Vol]8.1 mg/dLLow 8.5-10.2CSelect Medical Specialty [facility] on above:Order Comment: Specimen Type: BLOOD SPECIMENOrdering Facility: [facility] Address:[address] [place], [place] [address]Performed By: #### 58842-8, 1987-08, , 2776-04 ####[facility] LABCLIA [id number] [address] [address] [place] AMERICAChloride [Moles/Vol]102 mmol/L Meyhek48-963LunttckluHarrison Community Hospital on above:Order Comment: Specimen Type: BLOOD SPECIMENOrdering Facility: [facility] Address:[address] [place] [address]Zcdfiocpv By: #### 66050-8, 1987-08, , 2776-04 ####[facility] LABIA [id number] [place] [address] [place] AMERICACO2 [Moles/Vol]21 mmol/UXwv50-95 [facility] on above:Order Comment: Specimen Type: BLOOD SPECIMENOrdering Facility: [facility] Address:[address] [place] [address]Waeminthr By: #### 53271-4, 1987-08, , 2776-04 ####[facility] LABIA [id number] [place] [address] [place] AMERICACreatinine [Mass/Vol]0.59 mg/dL Low0.73-1.22[facility] on above:Order Comment: Specimen Type: BLOOD SPECIMENOrdering Facility: [facility] Address:[address] [place], [place] [address]Performed By: #### 02260-4, 1987-08, , 2776-04 ####[facility] LABIA [id number] [place] [address] [place] AMERICAeGFRcr SerPlBld CKD-EPI 0181009 mL/min/1.73m???Normal>=60[facility] on above:Order Comment: Specimen Type: BLOOD SPECIMENOrdering Facility: [facility] Address:[address] [place] [address]Fwdjmp Comment: Estimated Glomerular Filtration Rate (eGFR) is [...] not accurately reflect actual GFR.Performed By: #### 46560-1, 1987-08, , 2776-04 ####[facility] LABCLIA [id number] [address] [address] [place] AMERICAGlucose [Mass/Vol]127 mg/aERfem51-75AghjwyljiHarrison Community Hospital on above:Order Comment: Specimen Type: BLOOD SPECIMENOrdering Facility: [facility] Address:[address] [place] [id number] Comment: The [place] [employer] (ADA) provides guidance for cutoff [...] Standards of Medical Care in Diabetes 2016, [place] [employer]. Diabetes Care. 2016.39(Suppl 1). Performed By: #### 27402-5, 1987-08, , 2776-04 ####[facility] LABCLIA [id number] [address] [address] [place] AMERICAPotassium [Moles/Vol]3.9 mmol/LNormal3.7-5.1CSelect Medical Specialty [facility] on above:Order Comment: Specimen Type: BLOOD SPECIMENOrdering Facility: [facility] Address:[address] [place], [place] [address]Rsatgzqwo By: #### 80186-6, 1987-08, , 2776-04 ####[facility] LABCLIA [id number] [address] [address] [place] AMERICAProtein [Mass/Vol]5.0 g/dLLow6.3-8.0[facility] on above:Order Comment: Specimen Type: BLOOD SPECIMENOrdering Facility: [facility] Address:[address] [place] [address]Xtggkbgbr By: #### 68254-7, 1987-08, , 2776-04 ####[facility] LABCLIA [id number] [address] [place] [address] [place] AMERICASodium [Moles/Vol]134 mmol/IDhr426-156UsqsfhkmeHarrison Community Hospital on above:Order Comment: Specimen Type: BLOOD SPECIMENOrdering Facility: [facility] Address:[address] [place], [place] [address]Performed By: #### 55455-8, 1987-08, , 2776-04 ####[facility] LABCLIA [id number] [place] [address] [place] AMERICAUrea nitrogen [Mass/Vol]25 mg/dLHigh-[facility] on above:Order Comment: Specimen Type: BLOOD SPECIMENOrdering Facility: [facility] Address:[address] [place], [place] [address]Performed By: #### 43200-0, 1987-08, , 2776-04 ####[facility] LABCLIA [id number] [address] [address] [place] AMERICAECG COMPLETEon 32-66-2572RXV COMPLETENormalCPomerene HospitalMagnesium SerPl-mCncon 21-73-1526Ifwaeolbg [Mass/Vol]1.6 mg/dL Low1.7-2.3CSelect [facility] on above:Order Comment: Specimen Type: BLOOD SPECIMENOrdering Facility: [facility] Address:[address] [place] [address]Wqoypylet By: #### 01124-3, 1987-08, , 2776-04 ####[facility] LABCLIA [id number] [address] [address] [place] OF ASPIRUS KEWEENAW HOSPITALUTRITIONon 62-48-0351YRELJVDVS NormalWyandot Memorial HospitalPhosphate SerPl-[facility] 82-49-7651Xcgchiheh [Mass/Vol]4.0 mg/dLNormal2.7-4.8CSelect [facility] on above:Order Comment: Specimen Type: BLOOD SPECIMENOrdering Facility: [facility] Address:[address] [place], [place] [address]Performed By: #### 00310- 8, 1987-, 71768-8, 277-1 ####[facility] LABCLIA [id number] [place] [address] [place] OF AMERICATHERAPY NTon 79-41-6907HLTYEJK NTNormalCPomerene HospitalTacrolimus Bld-ncon 87-88-4946Mwgrubshaq (Bld) [Mass/Vol]7.0 ng/mLNormal5.0-20.0[facility] on above:Order Comment: Specimen Type: BLOOD SPECIMENOrdering Facility: [facility] Address:[address] [place], [place] [address]Result Comment: Individualized target levels for a given [...] immunoassay using Lakhani Alinity i.Performed By: #### 59274-9 ####[facility] LABCLIA [id number] [place] [address] [place] AMERICACASE MANAGEMon 65-17-1090MPCF MANAGEMNormalWyandot Memorial HospitalCB W Auto Differential panel (Bld)on 97-49-6114Empxveslnpfq Ql (Bld)PresentNormalCSelect [facility] on above:Order Comment: Specimen Type: BLOOD SPECIMENOrdering Facility: [facility] Address:[address] [place], [place] [address]Performed By: #### 80362-5 ####[facility] LABCLIA [id number] [place] [address] [place] AMERICABasophils (Bld) [#/Vol]0.00 10*3/uLNormal<0.11CSelect [facility] on above:Order Comment: Specimen Type: BLOOD SPECIMENOrdering Facility: [facility] Address:[address] [place], [place] [address]Performed By: #### 55491- 8 ####[facility] LABCLIA [id number] [place] [address] [place] AMERICABasophils/100 WBC (Bld)0.0 % NormalHarrison Community Hospital on above:Order Comment: Specimen Type: BLOOD SPECIMENOrdering Facility: [facility] Address:[address] [place], [place] [address]Performed By: #### 17872-1 ####[facility] LABCLIA [id number] [place] [address] [place] AMERICADifferential cell count method Nom (Bld)ManualNormalCSelect Medical [facility] on above:Order Comment: Specimen Type: BLOOD SPECIMENOrdering Facility: [facility] Address:[address] [place], [place] [address]Performed By: #### 63435-8 ####[facility] LABCLIA [id number] [place] [address] [place] AMERICAEosinophils (Bld) [#/Vol]0.00 10*3/uLNormal<0.46[facility] on above:Order Comment: Specimen Type: BLOOD SPECIMENOrdering Facility: [facility] Address:[address] [place], [place] [address]Performed By: #### 68468-4 ####[facility] LABCLIA [id number] [place] [address] [place] Eosinophils/100 WBC (Bld)0.0 %NormalHarrison Community Hospital on above: Order Comment: Specimen Type: BLOOD SPECIMENOrdering Facility: [facility] Address:[address] [place], [place] [address]Performed By: #### 51193- 8 ####[facility] LABIA [id number] [place] [address] [place] AMERICAErythrocyte distribution width (RBC) [Ratio]18.1 %High11.5-15.0[facility] on above:Order Comment: Specimen Type: BLOOD SPECIMENOrdering Facility: [facility] Address:[address] [place], [place] [address]Performed By: #### 70948- 8 ####[facility] LABIA [id number] [address], [place] [address] [place] AMERICAHematocrit (Bld) [Volume fraction]24.8 %Low39.0-51.0[facility] on above:Order Comment: Specimen Type: BLOOD SPECIMENOrdering Facility: [facility] Address:[address] [place], [place] [address]Performed By: #### 71709- 8 ####[facility] LABIA [id number] [place] [address] [place] AMERICAHemoglobin (Bld) [Mass/Vol]8.0 g/dLLow13.0-17.0[facility] on above:Order Comment: Specimen Type: BLOOD SPECIMENOrdering Facility: [facility] Address:[address] [place], [place] [address]Performed By: #### 36480-3 ####[facility] LABIA [id number] [place] [address] [place] AMERICALymphocytes (Bld) [#/Vol]0.73 10*3/uLLow1.00-4.00[facility] on above:Order Comment: Specimen Type: BLOOD SPECIMENOrdering Facility: [facility] Address:[address] [place], [place] [address]Performed By: #### 55764-8 ####[facility] LABIA [id number] [place] [address] [place] AMERICALymphocytes/100 WBC (Bld)7.1 % NormalHarrison Community Hospital on above:Order Comment: Specimen Type: BLOOD SPECIMENOrdering Facility: [facility] Address:[address] [place], [place] [address]Performed By: #### 16770-2 ####[facility] LABIA [id number] [place] [address] [place] AMERICAMCH (RBC) [Entitic mass]31.0 ywIjuqpw50.0-34.0[facility] on above:Order Comment: Specimen Type: BLOOD SPECIMENOrdering Facility: [facility] Address:[address] [place], [place] [address]Performed By: #### 45386-6 ####[facility] [id number] [place] [address] [place] MCHC (RBC) [Mass/Vol]32.3 g/jXFlljvb69.5-36.0[facility] on above:Order Comment: Specimen Type: BLOOD SPECIMENOrdering Facility: [facility] Address:[address] [place] [address] Performed By: #### 11627-3 ####[facility] LABIA [id number] [place] [address] [place] MCV (RBC) [Entitic vol]96.1 sUHikahk36.0-100.0[facility] on above:Order Comment: Specimen Type: BLOOD SPECIMENOrdering Facility: [facility] Address:[address] [place] [address] Performed By: #### 26668-2 ####[facility] LABIA [id number] [address] [place] [address] [place] Metamyelocytes/100 WBC (Bld)0.9 %NormalHarrison Community Hospital on above:Order Comment: Specimen Type: BLOOD SPECIMENOrdering Facility: [facility] Address:[address] [place], [place] [address]Performed By: #### 38297-4 ####[facility] LABCLIA [id number] [address], [place] [address] [place] AMERICAMonocytes (Bld) [#/Vol]0.99 10*3/uLHigh<0.87[facility] on above:Order Comment: Specimen Type: BLOOD SPECIMENOrdering Facility: [facility] Address:[address] [place], [place] [address]Performed By: #### 52263- 8 ####[facility] LABCLIA [id number] [address], [place] [address] [place] AMERICAMonocytes/100 WBC (Bld)9.7 % NormalHarrison Community Hospital on above:Order Comment: Specimen Type: BLOOD SPECIMENOrdering Facility: [facility] Address:[address] [place], [place] [address]Performed By: #### 46869-8 ####[facility] LABCLIA [id number] [address], [facility]95 [place] AMERICAMYELO%0.9 %NormalHarrison Community Hospital on above: Order Comment: Specimen Type: BLOOD SPECIMENOrdering Facility: [facility] Address:[address] [place], [place] [address]Performed By: #### 73444- 8 ####[facility] LABCLIA [id number] [address], [facility]95 [place] AMERICANeutrophils (Bld) [#/Vol]8.32 10*3/uLHigh1.45-7.50[facility] on above:Order Comment: Specimen Type: BLOOD SPECIMENOrdering Facility: [facility] Address:[address] [place], [place] [address]Performed By: #### 40881-6 ####[facility] LABCLIA [id number] [place] [address] [place] AMERICANeutrophils/100 WBC (Bld)81.4 % NormalWyandot Memorial HospitalComment on above:Order Comment: Specimen Type: BLOOD SPECIMENOrdering Facility: [facility] Address:[address] [place], [place] [address]Performed By: #### 03545-4 ####[facility] LABCLIA [id number] [address], [place] [address] [place] AMERICANucleated RBC (Bld) [#/Vol]10*3/uLNormal<0.01[facility] on above:Order Comment: Specimen Type: BLOOD SPECIMENOrdering Facility: [facility] Address:[address] [place], [place] [address]Performed By: #### 37914-1 ####[facility] LABIA [id number] [place] [address] [place] Nucleated RBC/100 WBC (Bld) [Ratio]0.0 /100 WBCNormalCPomerene Hospital Comment on above:Order Comment: Specimen Type: BLOOD SPECIMENOrdering Facility: [facility] Address:[address] [place] [address] Performed By: #### 90152-3 ####[facility] LABCLIA [id number] [address] [place] [address] [place] Ovalocytes LM Ql (Bld)FewNormalCPomerene HospitalCombronson lakeview hospital on above:Order Comment: Specimen Type: BLOOD SPECIMENOrdering Facility: [facility] Address:[address] [place], [place] [address]Performed By: #### 57240- 8 ####[facility] LABCLIA [id number] [place] [address] [place] AMERICAPlatelet mean volume (Bld) [Entitic vol]10.6 fLNormal9.0-12.7CSelect [facility] on above: Order Comment: Specimen Type: BLOOD SPECIMENOrdering Facility: [facility] Address:[address] [place], [place] [address]Performed By: #### 43073- 8 ####[facility] LABCLIA [id number] [address], [place] [address] [place] AMERICAPlatelets (Bld) [#/Vol]307 10*3/wBIhbkus752-199ImbaoirmjHarrison Community Hospital on above:Order Comment: Specimen Type: BLOOD SPECIMENOrdering Facility: [facility] Address:[address] [place], [place] [address]Performed By: #### 89553-6 ####[facility] LABCLIA [id number] [place] [address] [place] AMERICAPlatelets Estimate (Bld) [#/Vol] AdequateNormalCSelect Medical [facility] on above:Order Comment: Specimen Type: BLOOD SPECIMENOrdering Facility: [facility] Address:[address] [place], [place] [address]Performed By: #### 15199-5 ####[facility] LABCLIA [id number] [place] [address] [place] AMERICAPolychromasia LM Ql (Bld)SlightNormalCSelect [facility] on above:Order Comment: Specimen Type: BLOOD SPECIMENOrdering Facility: [facility] Address:[address] [place], [place] [address]Performed By: #### 46600-6 ####[facility] LABCLIA [id number] [place] [address] [place] RBC (Bld) [#/Vol]2.58 10*6/uLLow4.20-6.00[facility] on above:Order Comment: Specimen Type: BLOOD SPECIMENOrdering Facility: [facility] Address:[address] [place], [place] [address]Performed By: #### 65035-3 ####[facility] LABCLIA [id number] [address], [place] [address] [place] AMERICARED CELL MORPH Reviewed: see results of individual morphologiesNoBarney Children's Medical Center Comment on above:Order Comment: Specimen Type: BLOOD SPECIMENOrdering Facility: [facility] Address:[address] [place] [address] Performed By: #### [id number] ####[facility] LABCLIA [id number] [address], [facility] [place] Target cells LM Ql (Bld)[facility] on above: Order Comment: Specimen Type: BLOOD SPECIMENOrdering Facility: [facility] Address:[address] [place], [place] [address]Performed By: #### [id number]- [id number] ####[facility] LABCLIA [id number] [address], [place] [address] [place] OF AMERICAWBC (Bld) [#/Vol]10.22 10*3/uL Normal3.70-11.00[facility] on above:Order Comment: Specimen Type: BLOOD SPECIMENOrdering Facility: [facility] Address:[address] [place], [place] [address]Performed By: #### [id number] ####[facility] LABCLIA [id number] [place] [address] [place] AMERICAWBC Left Shift Ql (Bld)Present NormalHarrison Community Hospital on above:Order Comment: Specimen Type: BLOOD SPECIMENOrdering Facility: [facility] Address:[address] [address] [place], [place] [address]Performed By: #### 74262-9 ####[facility] LABCLIA [id number] [address], [facility]95 [place] OF AMERICACONSULT PROGon 43-92-3605CJTEEPB PROGNormalMain Campus Medical Centerprehensive metabolic 2000 panelon 22-38-1944Uurpnpm [Mass/Vol]2.0 g/dLLow3.9-4.9CSelect [facility] on above:Order Comment: Specimen Type: BLOOD SPECIMENOrdering Facility: [facility] Address:[address] [place], [place] [address]Performed By: #### 98847-7, 03614-8, 2776-04 ####[facility] LABCLIA [id number] [address] [address] [place] OF AMERICAALP [Catalytic activity/Vol]476 U/FKttc85-665RgbtgzphwHarrison Community Hospital on above:Order Comment: Specimen Type: BLOOD SPECIMENOrdering Facility: [facility] Address:[address] [place], [place] [address]Performed By: #### 36974-0, , 2776-04 ####[facility] LABCLIA [id number] VILLE [address] [place] OF AMERICAALT [Catalytic activity/Vol]41 U/ZPttsoh55-80CbhjxtvosHarrison Community Hospital on above:Order Comment: Specimen Type: BLOOD SPECIMENOrdering Facility: [facility] Address:[address] [place], [place] [address]Performed By: #### 12478-5, , 2776-04 ####[facility] LABCLIA [id number] [address] [place] OF AMERICAAnion gap [Moles/Vol]12 mmol/L Normal8-15[facility] on above:Order Comment: Specimen Type: BLOOD SPECIMENOrdering Facility: [facility] Address:[address] [place], [place] [address]Performed By: #### 32190-6, , 2776- ####[facility] LABCLIA [id number] [address] [address] [place] OF AMERICAAST [Catalytic activity/Vol]34 U/SSvuhdx32-41JpcpaxdisHarrison Community Hospital on above:Order Comment: Specimen Type: BLOOD SPECIMENOrdering Facility: [facility] Address:[address] [place], [place] [address]Performed By: #### 65697-5, , 2776-04 ####[facility] LABCLIA [id number] [address] [place] AMERICABilirubin [Mass/Vol]0.3 mg/dL Normal0.2-1.3CSelect [facility] on above:Order Comment: Specimen Type: BLOOD SPECIMENOrdering Facility: [facility] Address:[address] [place], [place] [address]Performed By: #### 84382-8, , 2776-04 ####[facility] LABCLIA [id number] [address] [place] AMERICACalcium [Mass/Vol]8.0 mg/dLLow 8.5-10.2CSelect [facility] on above:Order Comment: Specimen Type: BLOOD SPECIMENOrdering Facility: [facility] Address:[address] [place], [place] [address]Performed By: #### 37566-2, , 2776-04 ####[facility] LABCLIA [id number] [address] [place] AMERICAChloride [Moles/Vol]102 mmol/L Pwxxzr28-631RhrjorakrHarrison Community Hospital on above:Order Comment: Specimen Type: BLOOD SPECIMENOrdering Facility: [facility] Address:[address] [place], [place] [address]Performed By: #### 27095-7, , 2776-04 ####[facility] LABCLIA [id number] [place] [address] [place] AMERICACO2 [Moles/Vol]20 mmol/YSeg14-12 [facility] on above:Order Comment: Specimen Type: BLOOD SPECIMENOrdering Facility: [facility] Address:[address] [place] [address]Gsbwcnzjx By: #### 91698-2, , 2776-04 ####[facility] LABIA [id number] [address] [place] AMERICACreatinine [Mass/Vol]0.56 mg/dLLow0.73-1.22 [facility] on above:Order Comment: Specimen Type: BLOOD SPECIMENOrdering Facility: [facility] Address:[address] [place] [address]Kwkjeiksz By: #### 35422-5, , 2776-04 ####[facility]ENTERIA [id number] [address] [place] OF AMERICAeGFRcr SerPlBld CKD-EPI 1536095 mL/min/1.73m??? Normal>=60[facility] on above:Order Comment: Specimen Type: BLOOD SPECIMENOrdering Facility: [facility] Address:[address] [place] [address]Gyrrpg Comment: Estimated Glomerular Filtration Rate (eGFR) is calculated using the 2020 CKD-EPI creatinine equation. This equation utilizes serum creatinine, sex, and age as parameters. The creatinine assay has traceable calibration to isotope dilution-mass spectrometry. Refer to KDIGO guidelines for clinical interpretation. In patients with unstable renal function, e.g. those with acute kidney injury, the eGFR may not accurately reflect actual GFR.Performed By: #### 74748-3, , 2776-04 ####[facility] LABIA [id number] [address] [place] OF AMERICAGlucose [Mass/Vol]129 mg/qZLkfk69-93UlhfbagfzHarrison Community Hospital on above:Order Comment: Specimen Type: BLOOD SPECIMENOrdering Facility: [facility] Address:[address] [place] [address]Fckylk Comment: The [place] Diabetes Association (ADA) provides guidance for cutoff [...] Standards of Medical Care in Diabetes 2016, [place] Diabetes Association. Diabetes Care. 2016.39(Suppl 1).Performed By: #### 94326- 8, 35475-3, 2776-04 ####[facility] LABW[facility] [id number] [address] [place] AMERICAPotassium [Moles/Vol] 3.9 mmol/LNormal3.7-5.1CSelect [facility] on above:Order Comment: Specimen Type: BLOOD SPECIMENOrdering Facility: [facility] Address:[address] [place], [place] [address]Performed By: #### 05915-4, , 2776-04 ####[facility] LABIA [id number] VILLE [address] [place] AMERICAProtein [Mass/Vol]5.0 g/dLLow 6.3-8.0[facility] on above:Order Comment: Specimen Type: BLOOD SPECIMENOrdering Facility: [facility] Address:[address] [place], [place] [address]Performed By: #### 62007-0, 14564-1, 2776-04 ####[facility] [id number] VILLE [address] [place] AMERICASodium [Moles/Vol]134 mmol/LLow 136-144[facility] on above:Order Comment: Specimen Type: BLOOD SPECIMENOrdering Facility: [facility] Address:[address] [place], [place] [address]Performed By: #### 91388-4, 65828-8, 2777-1 ####[facility] LABIA [id number] [address] [place] AMERICAUrea nitrogen [Mass/Vol]24 mg/dL Normal9-24[facility] on above:Order Comment: Specimen Type: BLOOD SPECIMENOrdering Facility: [facility] Address:[address] [place], [place] [address]Performed By: #### 53090-3, 63546-7, 2777- ####[facility] LABIA [id number] VILLE [address] [place] OF AMERICAMagnesium SerPl-mCncon 01-07-2025 Magnesium [Mass/Vol]1.8 mg/dLNormal1.7-2.3ClevelUC Medical Center on above:Order Comment: Specimen Type: BLOOD SPECIMENOrdering Facility: [facility] Address:[address] [place], [place] [address]Performed By: #### 89376-1, 68510-8, 2777-1 ####[facility] LABIA [id number][place] [address] [place] Phosphate SerPl-mCncon 26-38-9301Krwzxqoan [Mass/Vol]3.5 mg/dLNormal2.7-4.8 [facility] on above:Order Comment: Specimen Type: BLOOD SPECIMENOrdering Facility: [facility] Address:[address] [place], [place] [address]Performed By: #### 22184-1, 14556-3, 2777-1 ####[facility] LABIA [id number] VILLE [address] [place] OF AMERICATHERAPY NTon 65-11-0219SALRJWD NTNormalClevelUNC Health Rex Holly SpringsTacrolimus Bld-mCncon 09-74-4055Rnennhqmbp (Bld) [Mass/Vol]5.5 ng/mLNormal5.0-20.0[facility] on above:Order Comment: Specimen Type: BLOOD SPECIMENOrdering Facility: [facility] Address:[address] [place] [id number] Comment: Individualized target levels for a given [...] situation. Test performed by chemiluminescent immunoassay using PointniThe New Daily i.Performed By: #### 93861-6 ####[facility] LABCLIA [id number] [address] [place] [address] [place] AMERICAUS CHEST EFFUSION SURVEYon 06-83-0402DF CHEST EFFUSION SURVEY NormalWyandot Memorial HospitalBacteria Bld Culton 66-94-0987Ohxpghka identified Cx Nom (Bld)CULTURE, BLOOD: No growth 5 daysNormSt. John of God Hospital on above:Performed By: #### 600-7 ####[facility] LABCLIA [id number] [address] [address] [place] OF AMERICABacteria identified Cx Nom (Bld)CULTURE, BLOOD: No growth 5 daysNormalCSelect Medical [facility] on above:Performed By: #### 600-7 ####[facility] LABCLIA [id number] [address] [place] [address] [place] AMERICACBC W Auto Differential panel (Bld)on 61-25-1055Tayatefnncej Ql (Bld)PresentNormSt. John of God Hospital on above:Order Comment: Specimen Type: BLOOD SPECIMENOrdering Facility: [facility] Address:[address] [place] [address]Performed By: #### 18346-4 ####[facility] LABCLIA [id number] [address] [address] [place] OF AMERICABasophils (Bld) [#/Vol]0.00 10*3/uLNormal<0.11CPomerene Hospital Comment on above:Order Comment: Specimen Type: BLOOD SPECIMENOrdering Facility: [facility] Address:[address] [place] [address] Performed By: #### 58007-1 ####[facility] LABCLIA [id number] [address], [facility]95 [place] Basophils/100 WBC (Bld)0.0 %[facility] on above: Order Comment: Specimen Type: BLOOD SPECIMENOrdering Facility: [facility] Address:[address] [place], [place] [address]Performed By: #### 90296- 8 ####[facility] LABCLIA [id number] [place] [address] [place] AMERICADifferential cell count method Nom (Bld)ManualNormalCSelect Medical [facility] on above:Order Comment: Specimen Type: BLOOD SPECIMENOrdering Facility: [facility] Address:[address] [place], [place] [address]Performed By: #### 69355-4 ####[facility] LABCLIA [id number] [place] [address] [place] AMERICAEosinophils (Bld) [#/Vol]0.00 10*3/uLNormal<0.46[facility] on above:Order Comment: Specimen Type: BLOOD SPECIMENOrdering Facility: [facility] Address:[address] [place], [place] [address]Performed By: #### 12334-1 ####[facility] LABCLIA [id number] [place] [address] [place] AMERICAEosinophils/100 WBC (Bld)0.0 % NormalHarrison Community Hospital on above:Order Comment: Specimen Type: BLOOD SPECIMENOrdering Facility: [facility] Address:[address] [place], [place] [address]Performed By: #### 14788-0 ####[facility] LABIA [id number] [place] [address] [place] [facility]IONAL MEDICAL CENTERErythrocyte distribution width (RBC) [Ratio]17.8 %High11.5-15.0 [facility] on above:Order Comment: Specimen Type: BLOOD SPECIMENOrdering Facility: [facility] Address:[address] [place], [place] [address]Performed By: #### 40891-8 ####[facility] LABIA [id number] [address] STATES OF AMERICAHematocrit (Bld) [Volume fraction]27.7 %Low39.0-51.0Wyandot Memorial HospitalCombronson lakeview hospital on above:Order Comment: Specimen Type: BLOOD SPECIMENOrdering Facility: [facility] Address:[address] [place], [place] [address]Performed By: #### 60200-2 ####[facility] CENTERIA [id number] [place] [address] [place] Hemoglobin (Bld) [Mass/Vol]9.0 g/dLLow13.0-17.0[facility] on above:Order Comment: Specimen Type: BLOOD SPECIMENOrdering Facility: [facility] Address:[address] [place] [address] Performed By: #### 94768-9 ####[facility] LABIA [id number] [place] [address] [place] Lymphocytes (Bld) [#/Vol]0.28 10*3/uLLow1.00-4.00[facility] Comment on above:Order Comment: Specimen Type: BLOOD SPECIMENOrdering Facility: [facility] Address:[address] [place] [address] Performed By: #### 19143-8 ####[facility] LABIA [id number] [address] STATES OF [facility] Lymphocytes/100 WBC (Bld)2.6 %NormalHarrison Community Hospital on above: Order Comment: Specimen Type: BLOOD SPECIMENOrdering Facility: [facility] Address:[address] [place], [place] [address]Performed By: #### 93123- 8 ####[facility] LABCLIA [id number] [address] (RBC) [Entitic mass]31.1 pg Uwandb82.0-34.0[facility] on above:Order Comment: Specimen Type: BLOOD SPECIMENOrdering Facility: [facility] Address:[address] [place], [place] [address]Performed By: #### 09648-1 ####[facility] LABCLIA [id number] [address] OF COSHOCT[facility] REGIONAL MEDICAL CENTERMCHC (RBC) [Mass/Vol]32.5 g/dL Naplkl08.5-36.0[facility] on above:Order Comment: Specimen Type: BLOOD SPECIMENOrdering Facility: [facility] Address:[address] [place], [place] [address]Performed By: #### 53406-9 ####[facility] LABCLIA [id number] [address] (RBC) [Entitic vol]95.8 fL Pggkvr35.0-100.0[facility] on above:Order Comment: Specimen Type: BLOOD SPECIMENOrdering Facility: [facility] Address:[address] [place], [place] [address]Performed By: #### 19567-4 ####[facility] LABCLIA [id number] [address]Metamyelocytes/100 WBC (Bld)3.5 % NormalHarrison Community Hospital on above:Order Comment: Specimen Type: BLOOD SPECIMENOrdering Facility: [facility] Address:[address] [place], [place] [address]Performed By: #### 46084-8 ####[facility] LABCLIA [id number] [place] [address] [place] AMERICAMonocytes (Bld) [#/Vol]1.03 10*3/uLHigh<0.87W[facility]andot Memorial HospitalCombronson lakeview hospital on above:Order Comment: Specimen Type: BLOOD SPECIMENOrdering Facility: [facility] Address:[address] [place], [place] [address]Performed By: #### 93032-9 ####[facility] LABCLIA [id number] [place] [address] [place] Monocytes/100 WBC (Bld)9.6 %NormalWyandot Memorial HospitalComment on above: Order Comment: Specimen Type: BLOOD SPECIMENOrdering Facility: [facility] Address:[address] [place], [place] [address]Performed By: #### 43292- 8 ####[facility] LABCLIA [id number] [place] [address] [place] AMERICAMYELO%0.9 %NormalWyandot Memorial HospitalCombronson lakeview hospital on above:Order Comment: Specimen Type: BLOOD SPECIMENOrdering Facility: [facility] Address:[address] [place], [place] [address]Performed By: #### 71722-3 ####[facility] LABCLIA [id number] [address], [facility]95 [place] Neutrophils (Bld) [#/Vol]8.99 10*3/uLHigh1.45-7.50[facility] Comment on above:Order Comment: Specimen Type: BLOOD SPECIMENOrdering Facility: [facility] Address:[address] [place] [address] Performed By: #### 01015-5 ####[facility] LABCLIA [id number] [address], [facility]95 [place] Neutrophils/100 WBC (Bld)83.4 %NormalHarrison Community Hospital on above: Order Comment: Specimen Type: BLOOD SPECIMENOrdering Facility: [facility] Address:[address] [place], [place] [address]Performed By: #### 20028- 8 ####[facility] LABCLIA [id number] [place] [address] [place] AMERICANucleated RBC (Bld) [#/Vol] 10*3/uLNormal<0.01[facility] on above:Order Comment: Specimen Type: BLOOD SPECIMENOrdering Facility: [facility] Address:[address] [place], [place] [address]Performed By: #### 43245-2 ####[facility] LABIA [id number] [place] [address] [place] AMERICANucleated RBC/100 WBC (Bld) [Ratio]0.0 /100 WBCNormalCSelect Medical [facility] on above:Order Comment: Specimen Type: BLOOD SPECIMENOrdering Facility: [facility] Address:[address] [place], [place] [address]Performed By: #### 37167- 8 ####[facility] LABCLIA [id number] [place] [address] [place] AMERICAPlatelet mean volume (Bld) [Entitic vol]10.7 fLNormal9.0-12.7CSelect Medical [facility]ty [facility] on above: Order Comment: Specimen Type: BLOOD SPECIMENOrdering Facility: [facility] Address:[address] [place], [place] [address]Performed By: #### 17539- 8 ####[facility] LABIA [id number] [place] [address] [place] AMERICAPlatelets (Bld) [#/Vol]284 10*3/bQRmdcbn370-475KmrexmepdHarrison Community Hospital on above:Order Comment: Specimen Type: BLOOD SPECIMENOrdering Facility: [facility] Address:[address] [place], [place] [address]Performed By: #### 85160-1 ####[facility] LABCLIA [id number] [address] [place] [address] [place] MISERICORDIA HOSPITALPlatelets Estimate (Bld) [#/Vol] AdequateNormalCPomerene HospitalCombronson lakeview hospital on above:Order Comment: Specimen Type: BLOOD SPECIMENOrdering Facility: [facility] Address:[address] [place], [place] [address]Performed By: #### 97882-2 ####[facility] LABCLIA [id number] [address] [place] [address] [facility] HOSPITALRB (Bld) [#/Vol]2.89 10*6/uLLow4.20-6.00Wyandot Memorial HospitalComment on above:Order Comment: Specimen Type: BLOOD SPECIMENOrdering Facility: [facility] Address:[address] [place], [place] [address]Performed By: #### 89284-6 ####[facility] LABCLIA [id number] [address] [place] [address] [place] MISERICORDIA HOSPITALRED CELL MORPHReviewed: see results of individual morphologiesNoal [facility] on above:Order Comment: Specimen Type: BLOOD SPECIMENOrdering Facility: [facility] Address:[address] [place], [place] [address]Performed By: #### 16203-4 ####[facility] LABCLIA [id number] [address] [place] [address] REGIONAL REHABILITATION HOSPITALWBC (Bld) [#/Vol]10.78 10*3/uLNormal3.70-11.00[facility] Comment on above:Order Comment: Specimen Type: BLOOD SPECIMENOrdering Facility: [facility] Address:[address] [place], [place] [address] Performed By: #### 38918-6 ####[facility] LABCLIA [id number] [place] [address] [place] WBC Left Shift Ql (Bld)PresentNormalCSelect Medical [facility] on above: Order Comment: Specimen Type: BLOOD SPECIMENOrdering Facility: [facility] Address:[address] [place], [place] [address]Performed By: #### 29494- 8 ####[facility] LABCLIA [id number] [place] [address] [place] OF AMERICACONSULT PROGon 45-15-7615KQZBOGM PROGNormalWyandot Memorial HospitalCYTOMEGALOVIRUS (CMV) DNA, QUANTITATIVE PCR, PLASMAon 10-55-9013TDF DNA JESSICA+probe [#/Vol]65 IU/mLHighHarrison Community Hospital on above:Order Comment: Specimen Type: BLOOD SPECIMENOrdering Facility: [facility] Address:[address] [place], [place] [address]Performed By: #### CMVQNT ####[facility] LABCLIA [id number] [place] [address] [place] CMV DNA JESSICA+probe [Log #/Vol]1.81 log IU/mLNormalWyandot Memorial Hospital Comment on above:Order Comment: Specimen Type: BLOOD SPECIMENOrdering Facility: [facility] Address:[address] [place] [address] Performed By: #### CMVQNT ####[facility] LABCLIA [id number] [place] [address] [place] CMV DNA JESSICA+probe Qn (P)DetectedAbnormalNot DetectedWyandot Memorial Hospital Comment on above:Order Comment: Specimen Type: BLOOD SPECIMENOrdering Facility: [facility] Address:[address] [place] [address] Performed By: #### CMVQNT ####[facility] LABCLIA [id number] [place] [address] [place] Comprehensive metabolic 2000 panelon 44-81-4987Beoowup [Mass/Vol]2.4 g/dLLow 3.9-4.9CSelect Medical [facility]ty [facility] on above:Order Comment: Specimen Type: BLOOD SPECIMENOrdering Facility: [facility] Address:[address] [place], [place] [address]Performed By: #### 83445-2, , 2776-04 ####[facility] LABCLIA [id number] [address] [place] [address] [place] OF AMERICAALP [Catalytic activity/Vol]759 U/UDbjk50-166DapajyplgHarrison Community Hospital on above:Order Comment: Specimen Type: BLOOD SPECIMENOrdering Facility: [facility] Address:[address] [place], [place] [address]Performed By: #### 00250-0, , 2776-04 ####[facility] LABCLIA [id number] [address] [place] AMERICAALT [Catalytic activity/Vol]68 U/BTptz31-17BietlpdpwHarrison Community Hospital on above:Order Comment: Specimen Type: BLOOD SPECIMENOrdering Facility: [facility] Address:[address] [place], [place] [address]Performed By: #### 78245-8, , 2776-04 ####[facility] LABCLIA [id number] [place] [address] [place] AMERICAAnion gap [Moles/Vol]11 mmol/L Normal8-15[facility] on above:Order Comment: Specimen Type: BLOOD SPECIMENOrdering Facility: [facility] Address:[address] [place] [address]Rccspmfuz By: #### 10967-1, , 2776-04 ####[facility] LABCLIA [id number] [address] [place] AMERICAAST [Catalytic activity/Vol]60 U/DXobm35-74DazruwvxuHarrison Community Hospital on above:Order Comment: Specimen Type: BLOOD SPECIMENOrdering Facility: [facility] Address:[address] [place], [place] [address]Performed By: #### 08393-2, 19440-1, 2776-04 ####[facility] LABCLIA [id number] [address] [place] AMERICABilirubin [Mass/Vol]0.4 mg/dL Normal0.2-1.3CSelect [facility] on above:Order Comment: Specimen Type: BLOOD SPECIMENOrdering Facility: [facility] Address:[address] [place], [place] [address]Performed By: #### 36202-8, 06518-9, 2776-04 ####[facility] LABCLIA [id number][place] [address] [place] AMERICACalcium [Mass/Vol]8.5 mg/dLNormal 8.5-10.2ClevelUC Medical Center on above:Order Comment: Specimen Type: BLOOD SPECIMENOrdering Facility: [facility] Address:[address] [place], [place] [address]Performed By: #### 27740-8, 32709-7, 2776-04 ####[facility] LABCLIA [id number][place] [address] [place] AMERICAChloride [Moles/Vol]102 mmol/L Wbhinz16-066NbozzvkbhHarrison Community Hospital on above:Order Comment: Specimen Type: BLOOD SPECIMENOrdering Facility: [facility] Address:[address] [place], [place] [address]Performed By: #### 09496-9, 43157-9, 2776-04 ####[facility] LABIA [id number] VILLE [address] [place] AMERICACO2 [Moles/Vol]22 mmol/LNormal 22-30[facility] on above:Order Comment: Specimen Type: BLOOD SPECIMENOrdering Facility: [facility] Address:[address] [place], [place] [address]Performed By: #### 94620-3, 99498-9, 2776-04 ####[facility] [id number] [address] [place] AMERICACreatinine [Mass/Vol]0.64 mg/dL Low0.73-1.22[facility] on above:Order Comment: Specimen Type: BLOOD SPECIMENOrdering Facility: [facility] Address:[address] [place], [place] [address]Performed By: #### 93220-2, , 2776-04 ####[facility] [id number] VILLE [id number] [place] AMERICAeGFRcr SerPlBld CKD-EPI [id number] mL/min/1.73m???Normal>=60[facility] on above:Order Comment: Specimen Type: BLOOD SPECIMENOrdering Facility: [facility] Address:[address] [place], [place] [address]Result Comment: Estimated Glomerular Filtration Rate (eGFR) is [...] not accurately reflect actual GFR.Performed By: #### 91080-0, , 2776-04 ####[facility] [id number] [address] [place] AMERICAGlucose [Mass/Vol]129 mg/dLHigh 74-99[facility] on above:Order Comment: Specimen Type: BLOOD SPECIMENOrdering Facility: [facility] Address:[address] [place], [place] [address]Result Comment: The [place] Diabetes Association (ADA) provides guidance for cutoff [...] Standards of Medical Care in Diabetes 2016, [place] Diabetes Association. Diabetes Care. 2016.39(Suppl 1).Performed By: #### 82687- 8, , 2776-04 ####[facility] LABCLIA [id number][place] [address] [place] AMERICAPotassium [Moles/Vol] 3.7 mmol/LNormal3.7-5.1CSelect [facility] on above:Order Comment: Specimen Type: BLOOD SPECIMENOrdering Facility: [facility] Address:[address] [place], [place] [address]Performed By: #### 68442-9, , 2776-04 ####[facility] LABIA [id number][place] [address] [place] AMERICAProtein [Mass/Vol]5.4 g/dLLow 6.3-8.0[facility] on above:Order Comment: Specimen Type: BLOOD SPECIMENOrdering Facility: [facility] Address:[address] [place], [place] [address]Performed By: #### 18365-0, , 2776-04 ####[facility] LABIA [id number][place] [address] [place] AMERICASodium [Moles/Vol]135 mmol/LLow 136-144[facility] on above:Order Comment: Specimen Type: BLOOD SPECIMENOrdering Facility: [facility] Address:[address] [place], [place] [address]Performed By: #### 27884-0, , 2776-04 ####[facility] LABCLIA [id number] [address] [place] [address] [place] AMERICAUrea nitrogen [Mass/Vol]23 mg/dL Normal9-24[facility] on above:Order Comment: Specimen Type: BLOOD SPECIMENOrdering Facility: [facility] Address:[address] [place], [place] [address]Performed By: #### 73865-0, 71443-1, 2777-1 ####[facility] LABIA [id number] VILLE [address] [place] OF AMERICAMagnesium SerPl-mCncon 01-06-2025 Magnesium [Mass/Vol]1.4 mg/dLLow1.7-2.3CSelect [facility] on above:Order Comment: Specimen Type: BLOOD SPECIMENOrdering Facility: [facility] Address:[address] [place], [place] [address]Performed By: #### 60832-3, 81488-7, 2777- ####[facility] LABIA [id number] VILLE [address] [place] Phosphate SerPl-mCncon 08-13-1301Vakpevewp [Mass/Vol]3.4 mg/dLNormal2.7-4.8 [facility] on above:Order Comment: Specimen Type: BLOOD SPECIMENOrdering Facility: [facility] Address:[address] [place], [place] [address]Performed By: #### 75163-2, 66697-8, 2777- ####[facility] LABIA [id number] VILLE [address] [place] OF AMERICATHERAPY NTon 41-94-4829PXQIFSE NTNormalCleveland FirsthealthTHERAPY NTNormalCleveland FirsthealthTYPE + SCREENon 79-61-6297KLIGMpfordOoiaoxojuSelect Medical Specialty [facility] on above:Order Comment: Specimen Type: BLOOD SPECIMENOrdering Facility: [facility] Address:[address] [place], [place] [address]Performed By: #### TSCR ####CC MAIN BLOOD BANKCLIA [id number] [place] [id number] [facility]OSPITALRh Nom (Bld)PositiveNormSt. John of God Hospital on above:Order Comment: Specimen Type: BLOOD SPECIMENOrdering Facility: [facility] Address:[address] [place], [place] [address]Performed By: #### TSCR ####CC MAIN BLOOD BANKCLIA [id number] [address] OF [facility] CENTERTYPE AND SCREEN EXPIRATION 01/09/2025 23:59NormalCSelect Medical [facility] on above:Order Comment: Specimen Type: BLOOD SPECIMENOrdering Facility: [facility] Address:[address] [place], [place] [address]Performed By: #### TSCR ####CC [facility] BLOOD BANKIA [id number] [address] STREETTacrolimus Bld-mCncon 22-94-0459Gwyfsvywtn (Bld) [Mass/Vol]7.5 ng/mLNormal5.0-20.0[facility] on above:Order Comment: Specimen Type: BLOOD SPECIMENOrdering Facility: [facility] Address:[address] [place], [place] [address]Result Comment: Individualized target levels for a given [...] situation. Test performed by chemiluminescent immunoassay using KupiBonus Alinity i.Performed By: #### 79181-4 ####[facility] LABCLIA [id number] [address] OF COSHO[facility] MEDICAL CENTERCBC W Auto Differential panel (Bld)on 53-31-9958Mcoivtixqcsd Ql (Bld)[facility] on above:Order Comment: Specimen Type: BLOOD SPECIMENOrdering Facility: [facility] Address:[address] [place], [place] [address]Performed By: #### 71066-3 ####[facility] LABCLIA [id number] [place] [address] [place] AMERICABasophils (Bld) [#/Vol]0.00 10*3/uLNormal<0.11CSelect [facility] on above:Order Comment: Specimen Type: BLOOD SPECIMENOrdering Facility: [facility] Address:[address] [place], [place] [address]Performed By: #### 60941-3 ####[facility] LABCLIA [id number] [place] [address] [place] AMERICABasophils/100 WBC (Bld)0.0 % NormalHarrison Community Hospital on above:Order Comment: Specimen Type: BLOOD SPECIMENOrdering Facility: [facility] Address:[address] [place], [place] [address]Performed By: #### 20775-1 ####[facility] LABCLIA [id number] [place] [address] [place] AMERICADifferential cell count method Nom (Bld)[facility] on above:Order Comment: Specimen Type: BLOOD SPECIMENOrdering Facility: [facility] Address:[address] [place], [place] [address]Performed By: #### 32159-4 ####[facility] LABCLIA [id number] [place] [address] [place] AMERICAEosinophils (Bld) [#/Vol]0.00 10*3/uLNormal<0.46[facility] on above:Order Comment: Specimen Type: BLOOD SPECIMENOrdering Facility: [facility] Address:[address] [place], [place] [address]Performed By: #### 26405-2 ####[facility] LABIA [id number] [address], [place] [address] [place] Eosinophils/100 WBC (Bld)0.0 %NormalHarrison Community Hospital on above: Order Comment: Specimen Type: BLOOD SPECIMENOrdering Facility: [facility] Address:[address] [place], [place] [address]Performed By: #### 97585- 8 ####[facility] LABIA [id number] [address], [place] [address] [place] OF AMERICAErythrocyte distribution width (RBC) [Ratio]17.9 %High11.5-15.0[facility] on above:Order Comment: Specimen Type: BLOOD SPECIMENOrdering Facility: [facility] Address:[address] [place], [place] [address]Performed By: #### 05188- 8 ####[facility] CENTERIA [id number] [place] [address] [place] AMERICAHematocrit (Bld) [Volume fraction]25.0 %Low39.0-51.0[facility] on above:Order Comment: Specimen Type: BLOOD SPECIMENOrdering Facility: [facility] Address:[address] [place], [place] [address]Performed By: #### 68298- 8 ####[facility] LABIA [id number] [place] [address] [place] AMERICAHemoglobin (Bld) [Mass/Vol]8.2 g/dLLow13.0-17.0[facility] on above:Order Comment: Specimen Type: BLOOD SPECIMENOrdering Facility: [facility] Address:[address] [place], [place] [address]Performed By: #### 06786-8 ####[facility] LABIA [id number] [place] [address] [place] AMERICALymphocytes (Bld) [#/Vol]0.34 10*3/uLLow1.00-4.00[facility] on above:Order Comment: Specimen Type: BLOOD SPECIMENOrdering Facility: [facility] Address:[address] [place], [place] [address]Performed By: #### 87279-5 ####[facility] LABIA [id number] [place] [address] [place] AMERICALymphocytes/100 WBC (Bld)3.0 % NormalHarrison Community Hospital on above:Order Comment: Specimen Type: BLOOD SPECIMENOrdering Facility: [facility] Address:[address] [place], [place] [address]Performed By: #### 18542-8 ####[facility] CENTERIA [id number] [place] [address] [place] AMERICAMCH (RBC) [Entitic mass]30.6 zrJnwsfy57.0-34.0[facility] on above:Order Comment: Specimen Type: BLOOD SPECIMENOrdering Facility: [facility] Address:[address] [place], [place] [address]Performed By: #### 42279-0 ####[facility] LABIA [id number] [place] [address] [place] MCHC (RBC) [Mass/Vol]32.8 g/vXBuimxt13.5-36.0[facility] on above:Order Comment: Specimen Type: BLOOD SPECIMENOrdering Facility: [facility] Address:[address] [place] [address] Performed By: #### 35400-7 ####[facility] LABIA [id number] [place] [address] [place] MCV (RBC) [Entitic vol]93.3 pCEeihbl28.0-100.0[facility] on above:Order Comment: Specimen Type: BLOOD SPECIMENOrdering Facility: [facility] Address:[address] [place] [address] Performed By: #### 54735-4 ####[facility] LABCLIA [id number] [address] [place] [address] [place] Metamyelocytes/100 WBC (Bld)3.0 %NormalH[facility] Community Hospital on above:Order Comment: Specimen Type: BLOOD SPECIMENOrdering Facility: [facility] Address:[address] [place], [place] [address]Performed By: #### 13309-7 ####[facility] LABCLIA [id number] [address], [place] [address] [place] AMERICAMonocytes (Bld) [#/Vol]1.01 10*3/uLHigh<0.87[facility] on above:Order Comment: Specimen Type: BLOOD SPECIMENOrdering Facility: [facility] Address:[address] [place], [place] [address]Performed By: #### 74570- 8 ####[facility] LABCLIA [id number] [address], [facility]95 [place] AMERICAMonocytes/100 WBC (Bld)9.0 % [facility] on above:Order Comment: Specimen Type: BLOOD SPECIMENOrdering Facility: [facility] Address:[address] [place], [place] [address]Performed By: #### 28774-2 ####[facility] LABCLIA [id number] [address], [facility]95 [place] AMERICAMYELO%2.0 %[facility] on above: Order Comment: Specimen Type: BLOOD SPECIMENOrdering Facility: [facility] Address:[address] [place], [place] [address]Performed By: #### 91894- 8 ####[facility] LABCLIA [id number] [address], [facility]95 [place] AMERICANeutrophils (Bld) [#/Vol]9.27 10*3/uLHigh1.45-7.50[facility] on above:Order Comment: Specimen Type: BLOOD SPECIMENOrdering Facility: [facility] Address:[address] [place], [place] [address]Performed By: #### 48032-9 ####[facility] LABCLIA [id number] [place] [address] [place] AMERICANeutrophils/100 WBC (Bld)83.0 % NormalHarrison Community Hospital on above:Order Comment: Specimen Type: BLOOD SPECIMENOrdering Facility: [facility] Address:[address] [place], [place] [address]Performed By: #### 41035-1 ####[facility] LABIA [id number] [place] [address] [place] AMERICANucleated RBC (Bld) [#/Vol]10*3/uLNormal<0.01[facility] on above:Order Comment: Specimen Type: BLOOD SPECIMENOrdering Facility: [facility] Address:[address] [place], [place] [address]Performed By: #### 46168-8 ####[facility] LABCLIA [id number] [place] [address] [place] Nucleated RBC/100 WBC (Bld) [Ratio]0.0 /100 WBCNormRiverview Health Institute Comment on above:Order Comment: Specimen Type: BLOOD SPECIMENOrdering Facility: [facility] Address:[address] [place] [address] Performed By: #### 61586-3 ####[facility] LABCLIA [id number] [place] [address] [place] Ovalocytes LM Ql (Bld)FewNormalCSelect Medical [facility] on above:Order Comment: Specimen Type: BLOOD SPECIMENOrdering Facility: [facility] Address:[address] [place], [place] [address]Performed By: #### 11908- 8 ####[facility] LABCLIA [id number] [place] [address] [place] AMERICAPlatelet mean volume (Bld) [Entitic vol]10.7 fLNormal9.0-12.7CSelect [facility] on above: Order Comment: Specimen Type: BLOOD SPECIMENOrdering Facility: [facility] Address:[address] [place], [place] [address]Performed By: #### 70130- 8 ####[facility] LABCLIA [id number] [place] [address] [place] AMERICAPlatelets (Bld) [#/Vol]277 10*3/jYNtcmhm149-105OiqwekznjH[facility] Hospital on above:Order Comment: Specimen Type: BLOOD SPECIMENOrdering Facility: [facility] Address:[address] [place], [place] [address]Performed By: #### 78480-2 ####[facility] LABCLIA [id number] [place] [address] [place] AMERICAPlatelets Estimate (Bld) [#/Vol] AdequateNormalCSelect [facility] on above:Order Comment: Specimen Type: BLOOD SPECIMENOrdering Facility: [facility] Address:[address] [place], [place] [address]Performed By: #### 51447-2 ####[facility] LABCLIA [id number] [address] [place] [address] [place] AMERICAPolychromasia LM Ql (Bld)SlightNormalCSelect Medical [facility] on above:Order Comment: Specimen Type: BLOOD SPECIMENOrdering Facility: [facility] Address:[address] [place], [place] [address]Performed By: #### 67201-4 ####[facility] LABIA [id number] [place] [address] [place] RBC (Bld) [#/Vol]2.68 10*6/uLLow4.20-6.00[facility] on above:Order Comment: Specimen Type: BLOOD SPECIMENOrdering Facility: [facility] Address:[address] [place], [place] [address]Performed By: #### 92233-7 ####[facility] LABCLIA [id number] [address] [place] [address] [place] AMERICARED CELL MORPH Reviewed: see results of individual [facility] Comment on above:Order Comment: Specimen Type: BLOOD SPECIMENOrdering Facility: [facility] Address:[address] [place] [address] Performed By: #### 67073-3 ####[facility] LABCLIA [id number] [address] [place] [address] [place] Target cells LM Ql (Bld)[facility] on above: Order Comment: Specimen Type: BLOOD SPECIMENOrdering Facility: [facility] Address:[address] [place], [place] [address]Performed By: #### 02553- 8 ####[facility] LABCLIA [id number] [address], [facility]95 [place] AMERICAToxic granules LM Ql (Bld)Present NormalHarrison Community Hospital on above:Order Comment: Specimen Type: BLOOD SPECIMENOrdering Facility: [facility] Address:[address] [place], [place] [address]Performed By: #### 34004-9 ####[facility] LABCLIA [id number] [address] [place] [address] [place] AMERICAWBC (Bld) [#/Vol]11.17 10*3/uLHigh3.70-11.00[facility] on above:Order Comment: Specimen Type: BLOOD SPECIMENOrdering Facility: [facility] Address:[address] [place], [place] [address]Performed By: #### 01042-8 ####[facility] LABCLIA [id number] [address] [place] [address] [place] WBC Left Shift Ql (Bld)PresentNormalClevelUNC Health Rex Holly SpringsComment on above: Order Comment: Specimen Type: BLOOD SPECIMENOrdering Facility: [facility] Address:[address] [place], [place] [address]Performed By: #### 50270- 8 ####[facility] LABCLIA [id number] [address] [place] [address] [place] AMERICAComprehensive metabolic 2000 panelon 12-39-4694Zkywgms [Mass/Vol]2.0 g/dLLow3.9-4.9ClevelUNC Health Rex Holly Springs Comment on above:Order Comment: Specimen Type: BLOOD SPECIMENOrdering Facility: [facility] Address:[address] [place] [address] Performed By: #### 13570-3, 10481-2, 2776- ####[facility] LABCLIA [id number] [place] [address] [place] AMERICAALP [Catalytic activity/Vol]520 U/ALsob58-613RwyaqjygoWyandot Memorial Hospital Comment on above:Order Comment: Specimen Type: BLOOD SPECIMENOrdering Facility: [facility] Address:[address] [place] [address] Performed By: #### 95308-4, 67814-3, 7-1 ####[facility] LABCLIA [id number] [address] [place] AMERICAALT [Catalytic activity/Vol]62 U/WWacq50-88GjfjnejocWyandot Memorial Hospital Comment on above:Order Comment: Specimen Type: BLOOD SPECIMENOrdering Facility: [facility] Address:[address] [place], [place] [address] Performed By: #### 99262-4, 61630-9, 7-1 ####[facility] LABCLIA [id number] [place] [address] [place] AMERICAAnion gap [Moles/Vol]11 mmol/LNormal8-15Wyandot Memorial HospitalComment on above:Order Comment: Specimen Type: BLOOD SPECIMENOrdering Facility: [facility] Address:[address] [place] [address] Performed By: #### 31524-7, 18565-9, 2776-04 ####[facility] LABCLIA [id number] AVENUENOVATO COMMUNITY HOSPITALK [place] [address] [place] AMERICAAST [Catalytic activity/Vol]57 U/AOojp33-90MdajpxydwWyandot Memorial Hospital Comment on above:Order Comment: Specimen Type: BLOOD SPECIMENOrdering Facility: [facility] Address:[address] [place] [address] Performed By: #### 28272-1, , 2776-04 ####[facility] LABCLIA [id number] [address] [place] AMERICABilirubin [Mass/Vol]0.4 mg/dLNormal0.2-1.3CPomerene Hospital Comment on above:Order Comment: Specimen Type: BLOOD SPECIMENOrdering Facility: [facility] Address:[address] [place] [address] Performed By: #### 79163-5, , 2776-04 ####[facility] LABCLIA [id number] AVENUEMICHELLE VILLE [address] [place] AMERICACalcium [Mass/Vol]8.1 mg/dLLow8.5-10.2CPomerene HospitalCombronson lakeview hospital on above:Order Comment: Specimen Type: BLOOD SPECIMENOrdering Facility: [facility] Address:[address] [place] [address] Performed By: #### 41393-2, , 2776-04 ####[facility] LABCLIA [id number] [address] [address] [place] AMERICAChloride [Moles/Vol]102 mmol/XKwhpdw20-928NsucvwdugWyandot Memorial Hospital Comment on above:Order Comment: Specimen Type: BLOOD SPECIMENOrdering Facility: [facility] Address:[address] [place] [address] Performed By: #### 26638-7, , 2776-04 ####[facility] LABIA [id number] [place] [address] [place] AMERICACO2 [Moles/Vol]21 mmol/RYfv25-82HdmpksyftHarrison Community Hospital on above:Order Comment: Specimen Type: BLOOD SPECIMENOrdering Facility: [facility] Address:[address] [place], [place] [address]Performed By: #### 94366-3, , 2776-04 ####[facility] LABW[facility] [id number] [place] [address] [place] Creatinine [Mass/Vol]0.65 mg/dLLow0.73-1.22[facility] on above:Order Comment: Specimen Type: BLOOD SPECIMENOrdering Facility: [facility] Address:[address] [place], [place] [address]Performed By: #### 93928-3, , 2776-04 ####[facility] CENTERIA [id number] VILLE [address] [place] eGFRcr SerPlBld CKD-EPI 3099619 mL/min/1.73m???Normal>=60[facility] on above:Order Comment: Specimen Type: BLOOD SPECIMENOrdering Facility: [facility] Address:[address] [place], [place] [address]Result Comment: Estimated Glomerular Filtration Rate (eGFR) is [...] accurately reflect actual GFR. Performed By: #### 52925-9, , 2776-04 ####[facility] LABIA [id number] [address] [place] AMERICAGlucose [Mass/Vol]131 mg/sFRppm81-89BrhmpfjjeHarrison Community Hospital on above:Order Comment: Specimen Type: BLOOD SPECIMENOrdering Facility: [facility] Address:[address] [place], [place] [address]Result Comment: The [place] [employer] Association (ADA) provides guidance for cutoff [...] Standards of Medical Care in Diabetes 2016, [place] [employer]. Diabetes Care. 2016.39(Suppl 1).Performed By: #### 98749-2, 13162-6, 2776-04 ####[facility] LABIA [id number] [address] [place] AMERICAPotassium [Moles/Vol]3.7 mmol/LNormal3.7-5.1 [facility] on above:Order Comment: Specimen Type: BLOOD SPECIMENOrdering Facility: [facility] Address:[address] [place] [address]Ekaafayym By: #### 98596-4, 96260-6, 2776-04 ####[facility] LABW[facility]CUL[facility] [id number] [address] [place] AMERICAProtein [Mass/Vol]4.8 g/dLLow6.3-8.0[facility] on above:Order Comment: Specimen Type: BLOOD SPECIMENOrdering Facility: [facility] Address:[address] [place], [place] [address]Performed By: #### 86280-6, 94964-8, 2777- ####[facility] LABCLIA [id number] VILLE [address] [place] AMERICASodium [Moles/Vol]134 mmol/BQas630-358GaasvctiaHarrison Community Hospital on above:Order Comment: Specimen Type: BLOOD SPECIMENOrdering Facility: [facility] Address:[address] [place], [place] [address]Performed By: #### 43550-8, 21391-8, 2777- ####[facility] LABIA [id number] VILLE [address] [place] AMERICAUrea nitrogen [Mass/Vol]17 mg/dLNormal9-24 [facility] on above:Order Comment: Specimen Type: BLOOD SPECIMENOrdering Facility: [facility] Address:[address] [place], [place] [address]Performed By: #### 69400-0, 37100-8, 2777- ####[facility] LABIA [id number] VILLE [address] [place] AMERICAMagnesium SerPl-mCncon 72-14-2186Hcbpumrwu [Mass/Vol]1.5 mg/dLLow1.7-2.3ClevelUC Medical Center on above:Order Comment: Specimen Type: BLOOD SPECIMENOrdering Facility: [facility] Address:[address] [place], [place] [address]Performed By: #### 72656- 8, 05973-3, 2777 ####[facility] LABW[facility]CUL[facility] [id number] VILLE [address] [place] AMERICAPhosphate SerPl-mCnc on 85-23-5670Tstmtjfyd [Mass/Vol]3.2 mg/dLNormal2.7-4.8ClevelUC Medical Center on above:Order Comment: Specimen Type: BLOOD SPECIMENOrdering Facility: [facility] Address:[address] [place], [place] [address]Performed By: #### 19479-0, 20091-6, 2777-1 ####[facility] LABCLIA [id number] [address] [place] AMERICATacrolimus Bld-mCncon 81-49-6824Uqvruqegij (Bld) [Mass/Vol]5.5 ng/mLNormal5.0-20.0[facility] on above:Order Comment: Specimen Type: BLOOD SPECIMENOrdering Facility: [facility] Address:[address] [place], [place] [address]Result Comment: Individualized target levels for a given [...] situation. Test performed by chemiluminescent immunoassay using [employer] i.Performed By: #### 61857-3 ####[facility] LABIA [id number] [place] [address] [place] AMERICAUrinalysis complete panel (U)on [id number] LM.HPF (Urine sed) [#/Area]NegativeNormalNegativeH[facility] on above:Order Comment: Specimen Type: URINE SPECIMENOrdering Facility: [facility] Address:[address] [place], [place] [address]Performed By: #### 06066-4 ####[facility] LABIA [id number] [place] [id number] [place] AMERICABilirubin Ql (U) NegativeNormalNegativeH[facility] on above:Order Comment: Specimen Type: URINE SPECIMENOrdering Facility: [facility] Address:[address] [place], [place] [address]Performed By: #### 97749-3 ####[facility] LABIA [id number] [address] [place] [address] [place] AMERICAClarity (Unsp spec)ClearNormal ClearHarrison Community Hospital on above:Order Comment: Specimen Type: URINE SPECIMENOrdering Facility: [facility] Address:[address] [place], [place] [address]Performed By: #### 51893-8 ####[facility] LABCLIA [id number] [address] [place] [address] [place] OF AMERICAColor (U)YellowNormalYellowHarrison Community Hospital on above:Order Comment: Specimen Type: URINE SPECIMENOrdering Facility: [facility] Address:[address] [place], [place] [address]Performed By: #### 75994-4 ####[facility] LABCLIA [id number] [address] [place] [address] [place] AMERICAEpithelial cells LM.HPF (Urine sed) [#/Area]None SeenNormalCSelect [facility] on above:Order Comment: Specimen Type: URINE SPECIMENOrdering Facility: [facility] Address:[address] [place], [place] [address]Performed By: #### 78839-1 ####[facility] LABCLIA [id number] [address] [place] [address] [place] AMERICAGlucose Test strip (U) [Mass/Vol]NegativeNormalNegativeHarrison Community Hospital on above: Order Comment: Specimen Type: URINE SPECIMENOrdering Facility: [facility] Address:[address] [place], [place] [address]Performed By: #### 72204- 8 ####[facility] LABCLIA [id number] [address] [place] [address] [place] AMERICAHemoglobin Ql (U)NegativeNormal NegativeHarrison Community Hospital on above:Order Comment: Specimen Type: URINE SPECIMENOrdering Facility: [facility] Address:[address] [place], [place] [address]Performed By: #### 38365-8 ####[facility] LABCLIA [id number] [address] [place] [address] [place] AMERICAHyaline casts (Urine sed) [#/Area]1-3 /LPFAbnormal0 /LPF [facility] on above:Order Comment: Specimen Type: URINE SPECIMENOrdering Facility: [facility] Address:[address] [place], [place] [address]Performed By: #### 69383-2 ####[facility] LABCLIA [id number] [address] [place] [address] [place] AMERICAKetones Ql (U)NegativeNormalNegativeHarrison Community Hospital on above:Order Comment: Specimen Type: URINE SPECIMENOrdering Facility: [facility] Address:[address] [place], [place] [address]Performed By: #### 45959-9 ####[facility] LABCLIA [id number] [address] [place] [address] [place] AMERICALeukocyte esterase Test strip Ql (U)NegativeNormalNegativeHarrison Community Hospital on above:Order Comment: Specimen Type: URINE SPECIMENOrdering Facility: [facility] Address:[address] [place], [place] [address]Performed By: #### 60349-3 ####[facility] LABCLIA [id number] [address] [place] [address] [place] AMERICANitrite Ql (U)Negative NormalNegativeHarrison Community Hospital on above:Order Comment: Specimen Type: URINE SPECIMENOrdering Facility: [facility] Address:[address] [place], [place] [address]Performed By: #### 57170-8 ####[facility] LABCLIA [id number] [address] [place] [address] [place] AMERICApH (U)5.5 [pH]Normal5.0-8.0[facility] Comment on above:Order Comment: Specimen Type: URINE SPECIMENOrdering Facility: [facility] Address:[address] [place] [address] Performed By: #### 20607-0 ####[facility] LABCLIA [id number] [place] [address] [place] Protein (U) [Mass/Vol]1+AbnormalNegativeHarrison Community Hospital on above:Order Comment: Specimen Type: URINE SPECIMENOrdering Facility: [facility] Address:[address] [place], [place] [address]Performed By: #### 46609-6 ####[facility] LABIA [id number] [place] [address] [place] COSHOCT[facility] REGIONAL MEDICAL CENTERRB LM.HPF (Urine sed) [#/Area]0-2 /HPFNormal0-2 /HPFHarrison Community Hospital on above:Order Comment: Specimen Type: URINE SPECIMENOrdering Facility: [facility] Address:[address] [place], [place] [address]Performed By: #### 29445- 8 ####[facility] LABIA [id number] [place] [address] [place] AMERICASpecific gravity (U) [Rel density]1.542Mgovbv0.005-1.030[facility] on above:Order Comment: Specimen Type: URINE SPECIMENOrdering Facility: [facility] Address:[address] [place], [place] [address]Performed By: #### 21200- 8 ####[facility] LABIA [id number] [place] [address] [place] [facility] MEDICAL CENTERUrobilinogen Ql (U)0.2 EU/dL Normal0.2-1.0 EU/dLHarrison Community Hospital on above:Order Comment: Specimen Type: URINE SPECIMENOrdering Facility: [facility] Address:[address] [place], [place] [address]Performed By: #### 12849-9 ####[facility] LABCLIA [id number] [address] [place] [address] [place] AMERICAWBC LM.HPF (Urine sed) [#/Area]0- 5 /HPFNormal0-5 /HPFHarrison Community Hospital on above:Order Comment: Specimen Type: URINE SPECIMENOrdering Facility: [facility] Address:[address] [place], [place] [address]Performed By: #### 05323-9 ####[facility] LABCLIA [id number] [address] [place] [address] [place] AMERICAYeast.budding LM.HPF (Urine sed) [#/Area]PresentAbnormalNone SeenHarrison Community Hospital on above:Order Comment: Specimen Type: URINE SPECIMENOrdering Facility: [facility] Address:[address] [place], [place] [address]Performed By: #### 07867- 8 ####[facility] LABCLIA [id number] [address] [place] [facility] [place] AMERICABacteria LM.HPF (Urine sed) [#/Area]NegativeNormalNegativeHarrison Community Hospital on above:Order Comment: Specimen Type: URINE SPECIMENOrdering Facility: [facility] Address:[address] [place], [place] [address]Performed By: #### 36795- 8 ####[facility] LABCLIA [id number] [address] [place] [address] [place] AMERICABilirubin Ql (U)NegativeNormal NegativeHarrison Community Hospital on above:Order Comment: Specimen Type: URINE SPECIMENOrdering Facility: [facility] Address:[address] [place], [place] [address]Performed By: #### 83512-2 ####[facility] LABCLIA [id number] [address] [place] [address] [place] AMERICAClarity (Unsp spec)CloudyAbnormalClearCleveland Clinic ClevelandComment on above:Order Comment: Specimen Type: URINE SPECIMENOrdering Facility: [facility] Address:[address] [place], [place] [address]Performed By: #### 20264-6 ####[facility] LABCLIA [id number] [address] [place] [address] [place] Color (U)YellowNormalYellowHarrison Community Hospital on above:Order Comment: Specimen Type: URINE SPECIMENOrdering Facility: [facility] Address:[address] [place], [place] [address]Performed By: #### 60365- 8 ####[facility] LABIA [id number] [address], [facility]95 [place] AMERICAEpithelial cells LM.HPF (Urine sed) [#/Area]FewNormalCSelect Medical [facility] on above:Order Comment: Specimen Type: URINE SPECIMENOrdering Facility: [facility] Address:[address] [place], [place] [address]Performed By: #### 16616-8 ####[facility] LABIA [id number] [address], [facility]95 [place] AMERICAGlucose Test strip (U) [Mass/Vol] NegativeNormalNegativeHarrison Community Hospital on above:Order Comment: Specimen Type: URINE SPECIMENOrdering Facility: [facility] Address:[address] [place], [place] [address]Performed By: #### 00806-2 ####[facility] LABCLIA [id number] [address] [place] [address] [place] AMERICAHemoglobin Ql (U)NegativeNormal NegativeHarrison Community Hospital on above:Order Comment: Specimen Type: URINE SPECIMENOrdering Facility: [facility] Address:[address] [place], [place] [address]Performed By: #### 87873-7 ####[facility] LABCLIA [id number] [address] [place] [address] [place] AMERICAHyaline casts (Urine sed) [#/Area]1-3 /LPFAbnormal0 /LPF [facility] on above:Order Comment: Specimen Type: URINE SPECIMENOrdering Facility: [facility] Address:[address] [place], [place] [address]Performed By: #### 23240-3 ####[facility] LABCLIA [id number] [address] [place] [address] [place] AMERICAKetones Ql (U)NegativeNormalNegativeHarrison Community Hospital on above:Order Comment: Specimen Type: URINE SPECIMENOrdering Facility: [facility] Address:[address] [place], [place] [address]Performed By: #### 07378-6 ####[facility] LABCLIA [id number] [place] [address] [place] AMERICALeukocyte esterase Test strip Ql (U)NegativeNormalNegativeHarrison Community Hospital on above:Order Comment: Specimen Type: URINE SPECIMENOrdering Facility: [facility] Address:[address] [place], [place] [address]Performed By: #### 50476-9 ####[facility] LABCLIA [id number] [address] [place] [address] [place] AMERICANitrite Ql (U)Negative NormalNegativeHarrison Community Hospital on above:Order Comment: Specimen Type: URINE SPECIMENOrdering Facility: [facility] Address:[address] [place], [place] [address]Performed By: #### 27767-1 ####[facility] LABCLIA [id number] [address] [place] [address] [place] AMERICApH (U)6.0 [pH]Normal5.0-8.0[facility] Comment on above:Order Comment: Specimen Type: URINE SPECIMENOrdering Facility: [facility] Address:[address] [place] [address] Performed By: #### 24927-9 ####[facility] LABIA [id number] [place] [address] [place] Protein (U) [Mass/Vol]1+AbnormalNegativeHarrison Community Hospital on above:Order Comment: Specimen Type: URINE SPECIMENOrdering Facility: [facility] Address:[address] [place], [place] [address]Performed By: #### 30483-2 ####[facility] LABIA [id number] [address] STATES OF COSHOCT[facility] REGIONAL MEDICAL CENTERRBC LM.HPF (Urine sed) [#/Area]3-5 /HPFAbnormal0-2 /HPFHarrison Community Hospital on above: Order Comment: Specimen Type: URINE SPECIMENOrdering Facility: [facility] Address:[address] [place], [place] [address]Performed By: #### 23752- 8 ####[facility] [id number] [place] [address] [place] AMERICASpecific gravity (U) [Rel density]1.756Zjzjey8.005-1.030[facility] on above:Order Comment: Specimen Type: URINE SPECIMENOrdering Facility: [facility] Address:[address] [place], [place] [address]Performed By: #### 06243- 8 ####[facility] [id number] [address] OF [facility]IONAL MEDICAL CENTERUrobilinogen Ql (U)0.2 EU/dL Normal0.2-1.0 EU/dLHarrison Community Hospital on above:Order Comment: Specimen Type: URINE SPECIMENOrdering Facility: [facility] Address:[address] [place], [place] [address]Performed By: #### 95888-5 ####[facility] LABIA [id number] [place] [address] [place] AMERICAWBC LM.HPF (Urine sed) [#/Area]0- 5 /HPFNormal0-5 /HPFHarrison Community Hospital on above:Order Comment: Specimen Type: URINE SPECIMENOrdering Facility: [facility] Address:[address] [place], [place] [address]Performed By: #### 66332-1 ####[facility] LABIA [id number] [place] [address] [place] AMERICAYeast.budding LM.HPF (Urine sed) [#/Area]PresentAbnormalNone SeenHarrison Community Hospital on above:Order Comment: Specimen Type: URINE SPECIMENOrdering Facility: [facility] Address:[address] [place], [place] [address]Performed By: #### 31359- 8 ####[facility] LABIA [id number] [place] [address] [place] AMERICACBC W Auto Differential panel (Bld)on 13-30-7109Jnfpdxsfqkbo Ql (Bld)PresentNormalCPomerene Hospital Comment on above:Order Comment: Specimen Type: BLOOD SPECIMENOrdering Facility: [facility] Address:[address] [place] [address] Performed By: #### 84247-2 ####[facility] LABIA [id number] [place] [address] [place] Basophils (Bld) [#/Vol]0.17 10*3/uLHigh<0.11CSelect [facility]ty [facility] on above:Order Comment: Specimen Type: BLOOD SPECIMENOrdering Facility: [facility] Address:[address] [place], [place] [address]Performed By: #### 53480-8 ####[facility] LABIA [id number] [place] [address] [place] AMERICABasophils/100 WBC (Bld)1.7 %NormalHarrison Community Hospital on above:Order Comment: Specimen Type: BLOOD SPECIMENOrdering Facility: [facility] Address:[address] [place], [place] [address]Performed By: #### 19784-4 ####[facility] LABCLIA [id number] [address], [place] [address] [place] AMERICADacrocytes LM Ql (Bld)FewNormal [facility] on above:Order Comment: Specimen Type: BLOOD SPECIMENOrdering Facility: [facility] Address:[address] [place], [place] [address]Performed By: #### 89931-0 ####[facility] LABCLIA [id number] [address], [place] [address] [place] AMERICADifferential cell count method Nom (Bld)ManualNormalCSelect Medical [facility] on above:Order Comment: Specimen Type: BLOOD SPECIMENOrdering Facility: [facility] Address:[address] [place], [place] [address]Performed By: #### 94764-7 ####[facility] LABCLIA [id number] [address], [place] [address] [place] Eosinophils (Bld) [#/Vol]0.00 10*3/uLNormal<0.46[facility] Comment on above:Order Comment: Specimen Type: BLOOD SPECIMENOrdering Facility: [facility] Address:[address] [place] [address] Performed By: #### 29572-1 ####[facility] LABCLIA [id number] [place] [address] [place] Eosinophils/100 WBC (Bld)0.0 %NormalHarrison Community Hospital on above: Order Comment: Specimen Type: BLOOD SPECIMENOrdering Facility: [facility] Address:[address] [place], [place] [address]Performed By: #### 59587- 8 ####[facility] LABCLIA [id number] [address], [place] [address] [place] AMERICAErythrocyte distribution width (RBC) [Ratio]17.2 %High11.5-15.0[facility] on above:Order Comment: Specimen Type: BLOOD SPECIMENOrdering Facility: [facility] Address:[address] [place], [place] [address]Performed By: #### 95045- 8 ####[facility] LABIA [id number] [place] [address] [place] AMERICAHematocrit (Bld) [Volume fraction]27.7 %Low39.0-51.0[facility] on above:Order Comment: Specimen Type: BLOOD SPECIMENOrdering Facility: [facility] Address:[address] [place], [place] [address]Performed By: #### 87182- 8 ####[facility] LABIA [id number] [place] [address] [place] AMERICAHemoglobin (Bld) [Mass/Vol]9.0 g/dLLow13.0-17.0[facility] on above:Order Comment: Specimen Type: BLOOD SPECIMENOrdering Facility: [facility] Address:[address] [place], [place] [address]Performed By: #### 82182-2 ####[facility] LABIA [id number] [place] [address] [place] AMERICALymphocytes (Bld) [#/Vol]0.60 10*3/uLLow1.00-4.00[facility] on above:Order Comment: Specimen Type: BLOOD SPECIMENOrdering Facility: [facility] Address:[address] [place], [place] [address]Performed By: #### 71988-0 ####[facility] LABIA [id number] [place] [address] [place] AMERICALymphocytes/100 WBC (Bld)6.0 % NormalHarrison Community Hospital on above:Order Comment: Specimen Type: BLOOD SPECIMENOrdering Facility: [facility] Address:[address] [place], [place] [address]Performed By: #### 87905-2 ####[facility] LABIA [id number] [place] [address] [place] [facility]IONAL MEDICAL CENTERMCH (RBC) [Entitic mass]30.7 deKphatb01.0-34.0[facility] on above:Order Comment: Specimen Type: BLOOD SPECIMENOrdering Facility: [facility] Address:[address] [place], [place] [address]Performed By: #### 61365-9 ####[facility] LABIA [id number] [place] [address] [place] MCHC (RBC) [Mass/Vol]32.5 g/qQCksvyk42.5-36.0[facility] on above:Order Comment: Specimen Type: BLOOD SPECIMENOrdering Facility: [facility] Address:[address] [place] [address] Performed By: #### 07727-4 ####[facility]IA [id number] [address] [place] MCV (RBC) [Entitic vol]94.5 vLZbwhuq70.0-100.0[facility] on above:Order Comment: Specimen Type: BLOOD SPECIMENOrdering Facility: [facility] Address:[address] [place] [address] Performed By: #### 55764-1 ####[facility] LABIA [id number] [address] STATES [place] Metamyelocytes/100 WBC (Bld)7.8 %NormalHarrison Community Hospital on above:Order Comment: Specimen Type: BLOOD SPECIMENOrdering Facility: [facility] Address:[address] [place], [place] [address]Performed By: #### 83611-1 ####[facility] LABIA [id number] [address] [place] [address] [place] AMERICAMonocytes (Bld) [#/Vol]1.39 10*3/uLHigh<0.87[facility] on above:Order Comment: Specimen Type: BLOOD SPECIMENOrdering Facility: [facility] Address:[address] [place], [place] [address]Performed By: #### 68010- 8 ####[facility] LABCLIA [id number] [address] [place] [address] [place] AMERICAMonocytes/100 WBC (Bld)13.8 % NormalHarrison Community Hospital on above:Order Comment: Specimen Type: BLOOD SPECIMENOrdering Facility: [facility] Address:[address] [place], [place] [address]Performed By: #### 30342-9 ####[facility] LABCLIA [id number] [address], [place] [address] [place] AMERICAMYELO%2.6 %NormalHarrison Community Hospital on above: Order Comment: Specimen Type: BLOOD SPECIMENOrdering Facility: [facility] Address:[address] [place], [place] [address]Performed By: #### 01599- 8 ####[facility] LABCLIA [id number] [address], [facility]95 [place] AMERICANeutrophils (Bld) [#/Vol]6.84 10*3/uLNormal1.45-7.50[facility] on above:Order Comment: Specimen Type: BLOOD SPECIMENOrdering Facility: [facility] Address:[address] [place], [place] [address]Performed By: #### 57775-2 ####[facility] LABCLIA [id number] [place] [address] [place] AMERICANeutrophils/100 WBC (Bld)68.1 % NormalHarrison Community Hospital on above:Order Comment: Specimen Type: BLOOD SPECIMENOrdering Facility: [facility] Address:[address] [place], [place] [address]Performed By: #### 22310-5 ####[facility] LABCLIA [id number] [place] [address] [place] AMERICANucleated RBC (Bld) [#/Vol]10*3/uLNormal<0.01[facility] on above:Order Comment: Specimen Type: BLOOD SPECIMENOrdering Facility: [facility] Address:[address] [place], [place] [address]Performed By: #### 87017-9 ####[facility] LABCLIA [id number] [place] [address] [place] Nucleated RBC/100 WBC (Bld) [Ratio]0.0 /100 WBCNormalCPomerene Hospital Comment on above:Order Comment: Specimen Type: BLOOD SPECIMENOrdering Facility: [facility] Address:[address] [place] [address] Performed By: #### 42878-7 ####[facility] LABCLIA [id number] [place] [address] [place] Ovalocytes LM Ql (Bld)FewNormalCSelect Medical [facility] on above:Order Comment: Specimen Type: BLOOD SPECIMENOrdering Facility: [facility] Address:[address] [place], [place] [address]Performed By: #### 10520- 8 ####[facility] LABCLIA [id number] [place] [address] [place] AMERICAPlatelet mean volume (Bld) [Entitic vol]10.9 fLNormal9.0-12.7CPomerene HospitalCombronson lakeview hospital on above: Order Comment: Specimen Type: BLOOD SPECIMENOrdering Facility: [facility] Address:[address] [place], [place] [address]Performed By: #### 74151- 8 ####[facility] LABCLIA [id number] [place] [address] [place] AMERICAPlatelets (Bld) [#/Vol]255 10*3/nPZzmudk942-131JfqxyvqauHarrison Community Hospital on above:Order Comment: Specimen Type: BLOOD SPECIMENOrdering Facility: [facility] Address:[address] [place], [place] [address]Performed By: #### 75526-8 ####[facility] LABCLIA [id number] [facility]D [facility]ITALK [address] [place] [address] [place] AMERICAPlatelets Estimate (Bld) [#/Vol] AdequateNormalCSelect Medical [facility]ty [facility] on above:Order Comment: Specimen Type: BLOOD SPECIMENOrdering Facility: [facility] Address:[address] [place], [place] [address]Performed By: #### 83836-5 ####[facility] LABCLIA [id number] [facility]D [address] [place] [address] [place] AMERICAPolychromasia LM Ql (Bld)SlightNormalCSelect [facility] on above:Order Comment: Specimen Type: BLOOD SPECIMENOrdering Facility: [facility] Address:[address] [place], [place] [address]Performed By: #### 22092-0 ####[facility] LABCLIA [id number] [facility]D [address] [place] [address] [place] RBC (Bld) [#/Vol]2.93 10*6/uLLow4.20-6.00[facility] on above:Order Comment: Specimen Type: BLOOD SPECIMENOrdering Facility: [facility] Address:[address] [place], [place] [address]Performed By: #### 41122-8 ####[facility] LABCLIA [id number] [facility] [address] [place] [address] [place] AMERICARBC FRAGMENTSFew AbnormalNone SeenHarrison Community Hospital on above:Order Comment: Specimen Type: BLOOD SPECIMENOrdering Facility: [facility] Address:[address] [place], [place] [address]Performed By: #### 53273-1 ####[facility] LABCLIA [id number] [address] [place] [address] [place] AMERICARED CELL MORPHReviewed: see results of individual [facility] on above:Order Comment: Specimen Type: BLOOD SPECIMENOrdering Facility: [facility] Address:[address] [place], [place] [address]Performed By: #### 22345-3 ####[facility] LABCLIA [id number] [address] [place] [address] [place] AMERICATarget cells LM Ql (Bld)FewKettering Health Troy on above:Order Comment: Specimen Type: BLOOD SPECIMENOrdering Facility: [facility] Address:[address] [place], [place] [address]Performed By: #### 25561-1 ####[facility] LABCLIA [id number] [address], [place] [address] [place] AMERICAToxic granules LM Ql (Bld)[facility] on above:Order Comment: Specimen Type: BLOOD SPECIMENOrdering Facility: [facility] Address:[address] [place], [place] [address]Performed By: #### 82917-1 ####[facility] LABCLIA [id number] [address], [place] [address] [place] WBC (Bld) [#/Vol]10.04 10*3/uLNormal3.70-11.00[facility] on above:Order Comment: Specimen Type: BLOOD SPECIMENOrdering Facility: [facility] Address:[address] [place] [address] Performed By: #### 32662-6 ####[facility] LABCLIA [id number] [address], [facility]95 [place] WBC Left Shift Ql (Bld)[facility] on above: Order Comment: Specimen Type: BLOOD SPECIMENOrdering Facility: [facility] Address:[address] [place], [place] [address]Performed By: #### 18038- 8 ####[facility] LABCLIA [id number] [address] [address] [place] AMERICACRP SerPl-mCncon 35-26-7204XAD [Mass/Vol]23.2 mg/dLHigh<0.9[facility] on above:Order Comment: Specimen Type: BLOOD SPECIMENOrdering Facility: [facility] Address:[address] [place], [place] [address]Performed By: #### 1988-5 ####[facility] LABCLIA [id number] [address] [address] [place] OF AMERICACT ABD/PEL WO IVCONon 01-04-2025 CT ABD/PEL WO IVCKettering Health Behavioral Medical CenterCT CHEST WO IVCONon 51-52-6138FT CHEST WO IVCKettering Health Behavioral Medical CenterComprehensive metabolic 2000 panelon 06-67-6801Fkoqsxo [Mass/Vol]2.2 g/dLLow3.9-4.9ClevelUC Medical Center on above:Order Comment: Specimen Type: BLOOD SPECIMENOrdering Facility: [facility] Address:[address] [place], [place] [address]Performed By: #### 88445-4, , 2776-04 ####[facility] LABCLIA [id number] [place] [address] [place] AMERICAALP [Catalytic activity/Vol]616 U/FWcos76-209 [facility] on above:Order Comment: Specimen Type: BLOOD SPECIMENOrdering Facility: [facility] Address:[address] [place], [place] [address]Performed By: #### 32850-4, 02813-3, 2776-1 ####[facility] LABCLIA [id number] [place] [address] [place] AMERICAALT [Catalytic activity/Vol]69 U/PRamm24-04 [facility] on above:Order Comment: Specimen Type: BLOOD SPECIMENOrdering Facility: [facility] Address:[address] [place], [place] [address]Performed By: #### 65912-9, 36474-4, 2776-04 ####[facility] LABCLIA [id number] AVENUENOV[facility]OS[facility]ITALK [place] [id number] [place] OF AMERICAAnion gap [Moles/Vol]11 mmol/LNormal8-15[facility] on above:Order Comment: Specimen Type: BLOOD SPECIMENOrdering Facility: [facility] Address:[address] [place], [place] [address]Performed By: #### 93715-5, , 2776-04 ####[facility] LABCLIA [id number] [place] [id number] [place] AMERICAAST [Catalytic activity/Vol]105 U/VUywd14-54 [facility] on above:Order Comment: Specimen Type: BLOOD SPECIMENOrdering Facility: [facility] Address:[address] [place], [place] [address]Performed By: #### 22601-1, , 2776-04 ####[facility] LABCLIA [id number] [place] [address] [place] AMERICABilirubin [Mass/Vol]0.8 mg/dLNormal0.2-1.3 [facility] on above:Order Comment: Specimen Type: BLOOD SPECIMENOrdering Facility: [facility] Address:[address] [place], [place] [address]Performed By: #### 19863-1, , 2776-04 ####[facility] LABCLIA [id number] AVENUENOVATO COMMUN[facility] HOSPITALK [address] [address] [place] AMERICACalcium [Mass/Vol]8.2 mg/dLLow8.5-10.2CSelect [facility] on above:Order Comment: Specimen Type: BLOOD SPECIMENOrdering Facility: [facility] Address:[address] [place], [place] [address]Performed By: #### 85804-2, 46065-3, 2776-04 ####[facility] LABCLIA [id number] [address] [place] [address] [place] AMERICAChloride [Moles/Vol]103 mmol/MIsawmo69-645 [facility] on above:Order Comment: Specimen Type: BLOOD SPECIMENOrdering Facility: [facility] Address:[address] [place], [place] [address]Performed By: #### 72720-3, , 2776-04 ####[facility] LABCLIA [id number] [address] [place] AMERICACO2 [Moles/Vol]23 mmol/VMxdsvz85-26EfwjubwduHarrison Community Hospital on above:Order Comment: Specimen Type: BLOOD SPECIMENOrdering Facility: [facility] Address:[address] [place], [place] [address]Performed By: #### 22446-7, , 2776-04 ####[facility] LABCLIA [id number] [address] [place] AMERICACreatinine [Mass/Vol]0.64 mg/dLLow0.73-1.22 [facility] on above:Order Comment: Specimen Type: BLOOD SPECIMENOrdering Facility: [facility] Address:[address] [place], [place] [address]Performed By: #### 56400-4, 31207-3, 2776-04 ####[facility] LABIA [id number] [address] [address] [place] OF AMERICAeGFRcr SerPlBld CKD-EPI 3415309 mL/min/1.73m??? Normal>=60[facility] on above:Order Comment: Specimen Type: BLOOD SPECIMENOrdering Facility: [facility] Address:[address] [place], [place] [address]Cfkuor Comment: Estimated Glomerular Filtration Rate (eGFR) is calculated using the 2020 CKD-EPI creatinine equation. This equation utilizes serum creatinine, sex, and age as parameters. The creatinine assay has traceable calibration to isotope dilution-mass spectrometry. Refer to KDIGO guidelines for clinical interpretation. In patients with unstable renal function, e.g. those with acute kidney injury, the eGFR may not accurately reflect actual GFR.Performed By: #### 26460-2, , 2776-04 ####[facility] LABCLIA [id number] [address] [place] OF AMERICAGlucose [Mass/Vol]137 mg/zARhys39-96TwmhhggujHarrison Community Hospital on above:Order Comment: Specimen Type: BLOOD SPECIMENOrdering Facility: [facility] Address:[address] [place] [address]Kuindp Comment: The [place] Diabetes Association (ADA) provides guidance for cutoff [...] Standards of Medical Care in Diabetes 2016, [place] Diabetes Association. Diabetes Care. 2016.39(Suppl 1).Performed By: #### 42200- 8, , 2776-04 ####[facility] LABIA [id number] [address] [place] AMERICAPotassium [Moles/Vol] 3.6 mmol/LLow3.7-5.1CSelect [facility] Special[facility] on above:Order Comment: Specimen Type: BLOOD SPECIMENOrdering Facility: [facility] Address:[address] [place] [address]Performed By: #### 06720-5, 74742-5, 2777-1 ####[facility] LABIA [id number] [address] [place] AMERICAProtein [Mass/Vol]4.9 g/dLLow 6.3-8.0[facility] on above:Order Comment: Specimen Type: BLOOD SPECIMENOrdering Facility: [facility] Address:[address] [place], [place] [address]Performed By: #### 91934-2, 47745-5, 2777- ####[facility] LABIA [id number] VILLE [address] [place] AMERICASodium [Moles/Vol]137 mmol/L Asodcs611-703VgscvmzkwHarrison Community Hospital on above:Order Comment: Specimen Type: BLOOD SPECIMENOrdering Facility: [facility] Address:[address] [place], [place] [address]Performed By: #### 53908-5, 93916-3, 2777- ####[facility] LABW[facility] [id number] VILLE 4495[address] [place] AMERICAUrea nitrogen [Mass/Vol]17 mg/dL Normal9-24[facility] on above:Order Comment: Specimen Type: BLOOD SPECIMENOrdering Facility: [facility] Address:[address] [place], [place] [address]Performed By: #### 94276-9, 94835-3, 2777- ####[facility] LABW[facility] [id number] [address] [place] AMERICAMagnesium SerPl-mCncon 01-04-2025 Magnesium [Mass/Vol]1.8 mg/dLNormal1.7-2.3CSelect [facility] on above:Order Comment: Specimen Type: BLOOD SPECIMENOrdering Facility: [facility] Address:[address] [place], [place] [address]Performed By: #### 66528-0, 85412-2, 2777-1 ####[facility] [id number] VILLE [address] [place] Phosphate SerPl-[facility] Centeron 39-35-9410Aokfqzwxf [Mass/Vol]3.8 mg/dLNormal2.7-4.8 [facility] on above:Order Comment: Specimen Type: BLOOD SPECIMENOrdering Facility: [facility] Address:[address] [place] [address]Ynkgtemjl By: #### 26849-7, 67776-7, 2777-1 ####[facility] [id number] VILLE [address] [facility] HOSPITALTacrolimus Bld-[facility] 10-67-8823Pivhcelypm (Bld) [Mass/Vol]7.3 ng/mLNormal5.0-20.0[facility] on above: Order Comment: Specimen Type: BLOOD SPECIMENOrdering Facility: [facility] Address:[address] [place], [place] [address]Result Comment: Individualized target levels for a given [...] situation. Test performed by chemiluminescent immunoassay using KupiBonus Alinity i.Performed By: #### 45271-8 ####[facility] [id number] [place] [address] [place] OF AMERICACASE MANAGEMon 18-40-5696QAQO MANAGEMNormalMemorial [facility] W Auto Differential panel (Bld)on 66-86-3926Mxlnvogai (Bld) [#/Vol] 0.11 10*3/uLHigh<0.11CSelect [facility] on above:Order Comment: Specimen Type: BLOOD SPECIMENOrdering Facility: [facility] Address:[address] [place], [place] [address]Performed By: #### 06811-6 ####[facility] LABCLIA [id number] [place] [address] [place] AMERICABasophils/100 WBC (Bld)0.9 % NormalHarrison Community Hospital on above:Order Comment: Specimen Type: BLOOD SPECIMENOrdering Facility: [facility] Address:[address] [place], [place] [address]Performed By: #### 66988-3 ####[facility] LABCLIA [id number] [place] [address] [place] AMERICAEosinophils (Bld) [#/Vol]0.00 10*3/uLNormal<0.46[facility] on above:Order Comment: Specimen Type: BLOOD SPECIMENOrdering Facility: [facility] Address:[address] [place], [place] [address]Performed By: #### 81522-7 ####[facility] LABCLIA [id number] [place] [address] [place] AMERICAEosinophils/100 WBC (Bld)0.0 %NormalHarrison Community Hospital on above:Order Comment: Specimen Type: BLOOD SPECIMENOrdering Facility: [facility] Address:[address] [place], [place] [address]Performed By: #### 71120-8 ####[facility] LABCLIA [id number] [place] [address] [place] AMERICAHematocrit (Bld) [Volume fraction]28.9 %Low39.0-51.0[facility] on above: Order Comment: Specimen Type: BLOOD SPECIMENOrdering Facility: [facility] Address:[address] [place], [place] [address]Performed By: #### 80811- 8 ####[facility] LABCLIA [id number] [place] [address] [place] AMERICAHemoglobin (Bld) [Mass/Vol]9.4 g/dLLow13.0-17.0[facility] on above:Order Comment: Specimen Type: BLOOD SPECIMENOrdering Facility: [facility] Address:[address] [place], [place] [address]Performed By: #### 75324-6 ####[facility] LABIA [id number] [place] [address] [place] [facility] MEDICAL CENTERLymphocytes (Bld) [#/Vol]1.03 10*3/uLNormal1.00-4.00[facility] on above:Order Comment: Specimen Type: BLOOD SPECIMENOrdering Facility: [facility] Address:[address] [place], [place] [address]Performed By: #### 97088-8 ####[facility] [id number] [place] [address] [place] [facility] MEDICAL CENTERLymphocytes/100 WBC (Bld)8.7 % NormalHarrison Community Hospital on above:Order Comment: Specimen Type: BLOOD SPECIMENOrdering Facility: [facility] Address:[address] [place], [place] [address]Performed By: #### 90751-7 ####[facility] [id number] [place] [address] [place] AMERICAMCH (RBC) [Entitic mass]30.9 qeKzboyw36.0-34.0[facility] on above:Order Comment: Specimen Type: BLOOD SPECIMENOrdering Facility: [facility] Address:[address] [place], [place] [address]Performed By: #### 93041-1 ####[facility] LABIA [id number] [place] [address] [place] MCV (RBC) [Entitic vol]95.1 kYGunmmv89.0-100.0[facility] on above:Order Comment: Specimen Type: BLOOD SPECIMENOrdering Facility: [facility] Address:[address] [place] [address] Performed By: #### 15952-9 ####[facility] LABCLIA [id number] [place] [address] [place] Metamyelocytes/100 WBC (Bld)7.8 %NormalHarrison Community Hospital on above:Order Comment: Specimen Type: BLOOD SPECIMENOrdering Facility: [facility] Address:[address] [place], [place] [address]Performed By: #### 44969-4 ####[facility] LABIA [id number] [place] [address] [place] AMERICAMonocytes (Bld) [#/Vol]0.92 10*3/uLHigh<0.87[facility] on above:Order Comment: Specimen Type: BLOOD SPECIMENOrdering Facility: [facility] Address:[address] [place], [place] [address]Performed By: #### 05704- 8 ####[facility] LABCLIA [id number] [place] [address] [place] AMERICAMonocytes/100 WBC (Bld)7.8 % NormalHarrison Community Hospital on above:Order Comment: Specimen Type: BLOOD SPECIMENOrdering Facility: [facility] Address:[address] [place], [place] [address]Performed By: #### 57034-7 ####[facility] LABIA [id number] [place] [address] [place] AMERICANeutrophils (Bld) [#/Vol]8.34 10*3/uLHigh1.45-7.50[facility] on above:Order Comment: Specimen Type: BLOOD SPECIMENOrdering Facility: [facility] Address:[address] [place], [place] [address]Performed By: #### 72739-5 ####[facility] LABCLIA [id number] [address] [place] [address] [place] ASPIR[facility] KEWEENAW HOSPITALeutrophils/100 WBC (Bld)70.5 %NormalHarrison Community Hospital on above:Order Comment: Specimen Type: BLOOD SPECIMENOrdering Facility: [facility] Address:[address] [place] [address] Performed By: #### 03386-1 ####[facility] LABCLIA [id number] [address], [facility]95 [place] Nucleated RBC (Bld) [#/Vol]10*3/uLNormal<0.01[facility] on above:Order Comment: Specimen Type: BLOOD SPECIMENOrdering Facility: [facility] Address:[address] [place] [address] Performed By: #### 06266-3 ####[facility] LABIA [id number] [place] [address] [place] Platelets (Bld) [#/Vol]257 10*3/iJEddfof232-461DlutxpaviHarrison Community Hospital on above:Order Comment: Specimen Type: BLOOD SPECIMENOrdering Facility: [facility] Address:[address] [place] [address] Performed By: #### 09787-9 ####[facility] LABIA [id number] [address], [place] [address] [place] RBC (Bld) [#/Vol]3.04 10*6/uLLow4.20-6.00[facility] on above:Order Comment: Specimen Type: BLOOD SPECIMENOrdering Facility: [facility] Address:[address] [place], [place] [address]Performed By: #### 89962-4 ####[facility] LABCLIA [id number] [address], [facility]95 [place] AMERICACRP SerPl-mCncon 07-68-4880JBR [Mass/Vol]26.9 mg/dLHigh<0.9CSelect [facility] on above:Order Comment: Specimen Type: BLOOD SPECIMENOrdering Facility: [facility] Address:[address] [place], [place] [address]Performed By: #### 70480-4, 89702-5, 2776-04, 1987-08, ####[facility] LABCLIA [id number] [place] [address] [place] AMERICAComprehensive metabolic 2000 panelon 81-36-2289Jkjxtsw [Mass/Vol]2.5 g/dLLow3.9-4.9ClevelUC Medical Center on above:Order Comment: Specimen Type: BLOOD SPECIMENOrdering Facility: [facility] Address:[address] [place], [place] [address]Performed By: #### 64674-8, 11231-6, 2776-04, 1987-08, ####[facility] LABCLIA [id number] [place] [address] [place] AMERICAALP [Catalytic activity/Vol]252 U/GWtjc72-252VwvzdyssoHarrison Community Hospital on above:Order Comment: Specimen Type: BLOOD SPECIMENOrdering Facility: [facility] Address:[address] [place], [place] [address]Performed By: #### 38718- 8, 42390-0, 2776-04, 1987-08, ####[facility] LABCLIA [id number] [place] [address] [place] ALT [Catalytic activity/Vol]32 U/KAcgnpu98-31MdyyrerhkHarrison Community Hospital on above:Order Comment: Specimen Type: BLOOD SPECIMENOrdering Facility: [facility] Address:[address] [place] [address] Performed By: #### 71049-8, 33316-3, 2776-04, 1987-08, ####[facility] LABCLIA [id number] [address] [address] [place] AMERICAAnion gap [Moles/Vol]10 mmol/LNormal8-15[facility] on above:Order Comment: Specimen Type: BLOOD SPECIMENOrdering Facility: [facility] Address:[address] [place], [place] [address]Performed By: #### 13261-7, 54607-6, 2776-04, 1987-08, ####[facility] LABIA [id number] [place] [address] [place] AMERICAAST [Catalytic activity/Vol]41 U/UHdpm77-52MytjqzruiHarrison Community Hospital on above:Order Comment: Specimen Type: BLOOD SPECIMENOrdering Facility: [facility] Address:[address] [place], [place] [address]Performed By: #### 14354-0, 79652-0, 2776-04, 1987-08, ####[facility]ENTERIA [id number] [address] [address] [place] AMERICABilirubin [Mass/Vol] 0.3 mg/dLNormal0.2-1.3ClevelUC Medical Center on above:Order Comment: Specimen Type: BLOOD SPECIMENOrdering Facility: [facility] Address:[address] [place], [place] [address]Performed By: #### 96012-3, 52720-8, 2776-04, 1987-08, ####[facility] LABIA [id number] [address] [address] [place] AMERICACalcium [Mass/Vol]8.4 mg/dLLow8.5-10.2ClevelUC Medical Center on above:Order Comment: Specimen Type: BLOOD SPECIMENOrdering Facility: [facility] Address:[address] [place], [place] [address]Performed By: #### 18822- 8, 50019-1, 2776-04, 1987-08, ####[facility] LABIA [id number] [address] [address] [place] Chloride [Moles/Vol]102 mmol/TMxrecq20-842DgxuhpstkWyandot Memorial HospitalComment on above:Order Comment: Specimen Type: BLOOD SPECIMENOrdering Facility: [facility] Address:[address] [place], [place] [address]Performed By: #### 53378-3, 49188-9, 2776-04, 1987-08, ####[facility] LABIA [id number] [address] [address] [place] AMERICACO2 [Moles/Vol]27 mmol/PKdfmym37-59SvbgjszjnWyandot Memorial HospitalCombronson lakeview [facility] on above:Order Comment: Specimen Type: BLOOD SPECIMENOrdering Facility: [facility] Address:[address] [place], [place] [address]Performed By: #### 02707-1, 98368-0, 2776-04, 1987-08, ####[facility] [id number] [address] [address] [place] AMERICACreatinine [Mass/Vol]0.67 mg/dLLow0.73-1.22[facility] Comment on above:Order Comment: Specimen Type: BLOOD SPECIMENOrdering Facility: [facility] Address:[address] [place], [place] [address] Performed By: #### 95797-5, 17358-1, 2776-04, 1987-08, ####[facility] CENTERIA [id number] [address] [address] [place] AMERICAGlucose [Mass/Vol]122 mg/sNTzil77-60TlgazxsgkHarrison Community Hospital on above:Order Comment: Specimen Type: BLOOD SPECIMENOrdering Facility: [facility] Address:[address] [place], [place] [address]Result Comment: The [place] Diabetes Association (ADA) provides guidance for cutoff [...] Standards of Medical Care in Diabetes 2016, [place] Diabetes Association. Diabetes Care. 2016.39(Suppl 1).Performed By: #### 18253- 8, 58832-6, 2776-04, 1987-08, ####[facility] LABIA [id number] [place] [address] [place] Potassium [Moles/Vol]4.2 mmol/LNormal3.7-5.1CPomerene HospitalComment on above:Order Comment: Specimen Type: BLOOD SPECIMENOrdering Facility: [facility] Address:[address] [place], [place] [address]Performed By: #### 01525-7, 60726-3, 2776-04, 1987-08, ####[facility] [id number] [place] [address] [place] AMERICAProtein [Mass/Vol]5.3 g/dLLow6.3-8.0Wyandot Memorial HospitalComment on above:Order Comment: Specimen Type: BLOOD SPECIMENOrdering Facility: [facility] Address:[address] [place], [place] [address]Performed By: #### 79225-7, 93512-1, 2776-04, 1987-08, ####[facility] [id number] [place] [address] [place] AMERICASodium [Moles/Vol]139 mmol/IBaztdd442-968PybowwnrjWyandot Memorial Hospital Comment on above:Order Comment: Specimen Type: BLOOD SPECIMENOrdering Facility: [facility] Address:[address] [place] [address] Performed By: #### 03211-4, 91278-7, 2776-04, 1987-08, ####[facility] LABCLIA [id number] [place] [address] [place] AMERICAUrea nitrogen [Mass/Vol]19 mg/dLNormal9-24 [facility] on above:Order Comment: Specimen Type: BLOOD SPECIMENOrdering Facility: [facility] Address:[address] [place], [place] [address]Performed By: #### 47655-1, 78447-2, 2776-04, 1987-08, ####[facility] LABIA [id number] [place] [address] [place] AMERICAMagnesium SerPl-mCncon 01-03-2025 Magnesium [Mass/Vol]1.8 mg/dLNormal1.7-2.3CSelect [facility] on above:Order Comment: Specimen Type: BLOOD SPECIMENOrdering Facility: [facility] Address:[address] [place], [place] [address]Performed By: #### 17533-4 ####[facility] LABIA [id number] [place] [address] [place] AMERICAMagnesium [Mass/Vol] 1.5 mg/dLLow1.7-2.3CSelect [facility] Special[facility] on above:Order Comment: Specimen Type: BLOOD SPECIMENOrdering Facility: [facility] Address:[address] [place], [place] [address]Performed By: #### 80709-3, 73747-4, 2776-04, 1987-08, 69334-6 ####[facility] LABIA [id number] [place] [address] [place] AMERICAPhosphate SerPl-mCncon 07-52-7928Bckqjotqf [Mass/Vol]3.5 mg/dLNormal2.7-4.8CPomerene HospitalComment on above:Order Comment: Specimen Type: BLOOD SPECIMENOrdering Facility: [facility] Address:[address] [place], [place] [address]Performed By: #### 94440-6, 16873-4, 2777-1, 1988-5, 00216-8 ####[facility] LABCLIA [id number] [place] [id number] [place] [facility]ICORD[facility] HOSPITALTacrolimus Bld-mCncon 01-03-2025 Tacrolimus (Bld) [Mass/Vol]6.4 ng/mLNormal5.0-20.0[facility] Comment on above:Order Comment: Specimen Type: BLOOD SPECIMENOrdering Facility: [facility] Address:[address] [place], [place] [address]Result Comment: Individualized target levels for a given [...] immunoassay using Lakhani Alinity i.Performed By: #### 26311-9 ####[facility] LABCLIA [id number] [place] [id number] [facility] AMERICAECHBates [facility] 01-02-2025 Echocardiography Report: Transthoracic Echo [facility] Bedside Date of service: 01/02/2025 8:55:11 AM 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 Ordering physician: KAYLEN RIVERA Exam indication: [...] * * Final * * * CC [employer] : [id number]^[employer]^SI^SUIDCCF Radiology, Radiologist, MD - 01/02/2025 Echocardiography Report: Transthoracic Echo [facility] Bedside Date of service: 01/02/2025 8:55:11 AM 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 Ordering physician: KAYLEN RIVERA Exam indication: [...] * * * Final * * * [employer] [facility] : [id number]^[employer]^SI^CELESTE ID [facility] SpringsRadiology Study observation (narrative)NOMS HealthcareECHOOrdered By: Radiologist Radiology on [id number] Work Phone: No Panel Informationon [id number] BACTERIA BLD CULT CULTURE, BLOOD: No growth 5 days NOM HealthcareOriginal Ordering Provider: [facility] BACTERIA FLD CULTon [id number] BACTERIA FLD CULT CULTURE, BODY FLD: No growth N[facility] HealthcareCCF BACTERIA FLD CULT GRAM STAIN: No organisms seen NOMS HealthcareCC BACTERIA FLD CULTNo Polymorphonuclear LeukocytesNOMS HealthcareCCF BACTERIA FLD CULTRare Mononuclear cellsNOMS HealthcareCCF BACTERIA FLD CULTFew Red Blood CellsNOMS HealthcareCC BACTERIA FLD CULTGram stain performed on cytospun specimen.[facility] BACTERIA FLD CULTGram stain from primary specimenSaint Mary's Hospital of Blue SpringsOriginal Ordering Provider: OTTO GALLEGOS [facility] CYTOLOGY NON-GYNon [id number] DISCLAIMERNOMS HealthcareComment on above:Laboratory Developed Test (LDT) Disclaimer: Performance characteristics of immunohistochemical, immunofluorescent, and chromogenic in-situ hybridization tests have been determined by the performing laboratory within the [facility] Department of Pathology and Laboratory Medicine ([facility], [facility], [facility], [facility], [facility], [facility], or [facility]) in a manner consistent with CLIA requirements. One or more of these tests may not have been cleared or approved by the FDA. The [facility] Department of Pathology and Laboratory Medicineis regulated under CLIA as qualified to perform high-complexity testing. These tests are used for clinical purposes. These should not be regarded as investigational or for research. Positive and negative controls stain appropriately. [facility] CASE REPORTNOMS HealthcareComment on above:Medical Cytology Report Case: [id number] Authorizing Provider: Burton Quezada MD Collected: 12/23/2024 11:44 AM Ordering Location: [place] [address] Received: 12/23/2024 06:15 PM Pathologist: Belén Green MD Specimen: Peritoneal Cavity [facility] CLINICAL HISTORYNOMS HealthcareComment on above:Pre-op diagnosis: Abdominal fluid collection [R18.8] [facility] FINAL DIAGNOSISNOMS HealthcareComment on above:A. Peritoneal Cavity, Fluid: Negative for malignant cells. Chronic inflammation. The following cell blocks were associated with this case: A1 Cell Block, Alcohol Fixed at 1601 EDT [facility] FINAL PERFORMING LABNOWV HealthcareComment on above:Technical component, fisher hoop net screening performed at: [facility], [address] [place] [address] CLIA: [id number] Diagnostic interpretation performed at: [facility], [address] [place] [address] CLIA# [id number] Catering Chef: Emmett New MD [facility]CF GROSS DESCRIPTIONNOMS HealthcareComment on above:A. Peritoneal Cavity 30 cc cloudy light yellow fluid . ThinPrep and Cell Block prepared. [facility] ORDER COMMENTNOWV HealthcareComment on above:Pre-op diagnosis: Abdominal fluid collection [R18.8] Specimen Type: SPECIMEN OBTAINED BY ASPIRATION Ordering Facility: [facility] Address: [address] [place] [address] Original Ordering Provider: BURTON BOYER HealthcareCCF BACTERIA SPEC RESP CULTon [id number] BACTERIA SPEC RESP CULTORGANISM ID: 1AbnormalNOFreeman Heart InstituteF BACTERIA SPEC RESP CULTFew normal respiratory floraNOFreeman Heart InstituteF BACTERIA SPEC RESP CULT GRAM STAIN: No organisms seen AbnormalNONevada Regional Medical CenterCCF BACTERIA SPEC RESP CULTRare Polymorphonuclear leukocytesAbnormalNOMS HealthcareInterpretation and review of laboratory results AbnormalNOMS HealthcareOriginal Ordering Provider: OTTO RUIZHermann Area District HospitalF BACTERIA BLD CULTon [id number] BACTERIA BLD CULTORGANISM ID: 1 AbnormalNOWV HealthcareF BACTERIA BLD CULTEnterococcus faecalisNOSullivan County Memorial HospitalF BACTERIA BLD CULTRefer to specimen collected on 12/14/24 at 1430 ([id number])NOM HealthcareCCF BACTERIA BLD CULTNOWV HealthcareCCF BACTERIA BLD CULTCephalosporins, clindamycin, and TMP-SMX are not effective for the treatment of enterococcal infections.NOMS [facility] HealthF BACTERIA BLD CULT GRAM STAIN: Gram positive cocci in pairs and chains AbnormalNOMS HealthcareInterpretation and review of laboratory resultsAbnormal [facility] HealthcareOriginal Ordering Provider: GAY HICKEY HealthcareCCF BACTERIA BLD CULTORGANISM ID: 1AbnormalNOMS HealthcareCCF BACTERIA BLD CULTEnterococcus faecalisNOMS HealthcareCCF BACTERIA BLD CULTRefer to specimen collected on 12/14/24 at 1430 ([id number])NOMS HealthcareCCF BACTERIA BLD CULTNOMS HealthcareCCF BACTERIA BLD CULTCephalosporins, clindamycin, and TMP-SMX are not effective for the treatment of enterococcal infections.NOMS HealthcareCCF BACTERIA BLD CULT GRAM STAIN: Gram positive cocci in pairs and chains AbnormalNOMS HealthcareInterpretation and review of laboratory resultsAbnormal [facility] HealthcareOriginal Ordering Provider: GAY HICKEY HealthcareCCF BACTERIA FLD CULTon [id number] BACTERIA FLD CULT CULTURE, BODY FLD: No growth NOMS HealthcareCCF BACTERIA FLD CULT GRAM STAIN: No organisms seen NOMS HealthcareCCF BACTERIA FLD CULTFew Polymorphonuclear leukocytesNOMS HealthcareCCF BACTERIA FLD CULTGram stain performed on cytospun specimen.NOMS HealthcareCCF BACTERIA FLD CULTGram stain from primary specimenOREM COMMUNITY [facility]OSPITAL HealthcareOriginal Ordering Provider: GAY HICKEY HealthcareCCF RESP PATH 12B PNL SPEC JESSICA+PROBEon [id number] RESP PATH 12B PNL SPEC JESSICA+PROBE INFLUENZA [...] JESSICA+PROBE BORDETELLA PARAPERTUSSIS DNA: Not detected NOMS XbjldtvuatKXNR-PtD-2 (COVID-19) RNA JESSICA+probe Ql (Unsp spec) SARS-COV-2 (AGENT OF COVID-19) RNA: Not detected NOMS HealthcareOriginal Ordering Provider: GEORGI CHAVEZ [facility] ECG 12 leadon [id number] Rate : 88 BPM Atrial Rate : 88 BPM P-R Interval : 134 ms QRS Duration : 80 ms Q-T Interval : 386 ms QTC Calculation(Bazett) : 467 ms Calculated P Choteau : 21 degrees Calculated R [place]ote[place] : 26 degrees Calculated T [place] : 25 degrees NORMAL SINUS RHYTHM LOW VOLTAGE QRS, CONSIDER PULMONARY DISEASE, PERICARDIAL EFFUSION, OR NORMAL VARIANT BORDERLINE ECG Confirmed by ABENA URENA MD ([id number]) on 12/06/2024 1:51:49 PM NAME : LOYD BLANDON PID : [id number] : 1955 Gender : Male Race : ORD : [id number] Procedure Date : Oct 14 2024 12:20:29 [...] QTC Calculation(Bazett) : 467 ms Calculated P [place]oteau : 21 degrees Calculated R [place]oteau : 26 degrees Calculated T [place]oteau : 25 degrees NORMAL SINUS RHYTHM LOW VOLTAGE QRS, CONSIDER PULMONARY DISEASE, PERICARDIAL EFFUSION, OR NORMAL VARIANT BORDERLINE ECG Confirmed by ABENA URENA MD ([id number]) on 12/06/2024 1:51:49 PM NAME : LOYD BLANDON PID : [id number] : 1955 Gender : Male Race : ORD : [id number] Procedure Date : Oct 14 2024 12:20:29 [...] : CANDIDA DIAS Acquired by : SHUN ROSA [facility] HealthcareECG 12 leadOrdered By: Radiologist Radiology on 02-10-0573XSJL Healthcare Work Phone: ECG 12 leadon 79-31-5810Vghvdwprqon Rate : 76 BPM Atrial Rate : 76 BPM P-R Interval : 138 ms QRS Duration : 84 ms Q-T Interval : 404 ms QTC Calculation(Bazett) : 454 ms Calculated P Choteau : 37 degrees Calculated R Choteau : 53 degrees Calculated T Choteau : 41 degrees SINUS RHYTHM WITH OCCASIONAL PREMATURE VENTRICULAR COMPLEXES OTHERWISE NORMAL ECG Confirmed by MD CHARLIE, HEBA ([id number]) on 12/02/2024 1:58:43 PM NAME : LOYD BLANDON PID : [id number] : 1955 Gender : Male Race : ORD : [id number] Procedure Date : Oct 14 2024 20:58:05 Edit Date : Dec 02 2024 13:58:51 Diagnosis: SINUS RHYTHM WITH OCCASIONAL PREMATURE VENTRICULAR COMPLEXES OTHERWISE NORMAL ECG Confirmed by MD GUERRA HEBA ([id number]) on 12/02/2024 1:58:43 PM Test Reason : [...] QTC Calculation(Bazett) : 454 ms Calculated P Choteau : 37 degrees Calculated R Choteau : 53 degrees Calculated T Choteau : 41 degrees SINUS RHYTHM WITH OCCASIONAL PREMATURE VENTRICULAR COMPLEXES OTHERWISE NORMAL ECG Confirmed by MD GUERRA HEBA ([id number]) on 12/02/2024 1:58:43 PM NAME : LOYD BLANDON PID : [id number] : 1955 Gender : Male Race : ORD : [id number] Procedure Date : Oct 14 2024 20:58:05 Edit Date : Dec 02 2024 13:58:51 Diagnosis: SINUS RHYTHM WITH OCCASIONAL PREMATURE VENTRICULAR COMPLEXES OTHERWISE NORMAL ECG Confirmed by MD GUERRA HEBA ([id number]) on 12/02/2024 1:58:43 PM Test Reason : Chest Pain Location : 97 : G90 G090-24 Overread By : MD GUERRA HEBA Edited By : MD GUERRA HEBA Referred By : CANDIDA DIAS Acquired by : PARAMJIT RICH [facility] 12 leadOrdered By: Radiologist Radiology on 19-85-6217FOJJ Healthcare Work Phone: cCF BACTERIA WND CULTon [id number] BACTERIA WND CULT CULTURE, WOUND: No growth NOMS HealthcareCCF BACTERIA WND CULT GRAM STAIN: No organisms seen NOMS HealthcareCC BACTERIA WND CULTRare Polymorphonuclear leukocytesNOMS HealthcareOriginal Ordering Provider: MIGUEL CORRAL HealthcareNo Panel Informationon [id number] BACTERIA BLD CULT CULTURE, BLOOD: No growth 5 days NOMS HealthcareOriginal Ordering Provider: XUAN CURRAN [facility] HospitalECG 12 leadon 12-23-9942Ylcmhcameej Rate : 74 BPM Atrial Rate : 74 BPM P-R Interval : 130 ms QRS Duration : 76 ms Q-T Interval : 386 ms QTC Calculation(Bazett) : 428 ms Calculated P Choteau : 22 degrees Calculated R Choteau : 27 degrees Calculated T Choteau : 18 degrees NORMAL SINUS RHYTHM LOW VOLTAGE QRS, CONSIDER PULMONARY DISEASE, PERICARDIAL EFFUSION, OR NORMAL VARIANT BORDERLINE ECG Confirmed by IGNACIO PARDO MD ([id number]) on 11/22/2024 1:57:41 PM NAME : LOYD BLANDON PID : [id number] : 1955 Gender : Male Race : ORD : [id number] Procedure Date : Sep 28 2024 11:33:58 Edit Date : Nov 22 2024 13:57:46 Diagnosis: NORMAL SINUS RHYTHM LOW VOLTAGE QRS, CONSIDER PULMONARY DISEASE, PERICARDIAL EFFUSION, OR NORMAL VARIANT BORDERLINE ECG Confirmed by IGNACIO PARDO MD ([id number]) on 11/22/2024 1:57:41 PM Test Reason : TREMORS, BP Location : 86 : [facility] G101-18 Overread By : IGNACIO PARDO MD Edited By : IGNACIO PARDO MD Referred By : , Acquired by : RACHEL PEREZCCFRadiology, Radiologist, - 11/22/2024 Ventricular Rate : 74 BPM Atrial Rate : 74 BPM P-R Interval : 130 ms QRS Duration : 76 ms Q-T Interval : 386 ms QTC Calculation(Bazett) : 428 ms Calculated P Choteau : 22 degrees Calculated R Choteau : 27 degrees Calculated T Choteau : 18 degrees NORMAL SINUS RHYTHM LOW VOLTAGE QRS, CONSIDER PULMONARY DISEASE, PERICARDIAL EFFUSION, OR NORMAL VARIANT BORDERLINE ECG Confirmed by IGNACIO PARDO MD ([id number]) on 11/22/2024 1:57:41 PM NAME : LOYD BLANDON PID : [id number] : 1955 Gender : Male Race : ORD : [id number] Procedure Date : Sep 28 2024 11:33:58 Edit Date : Nov 22 2024 13:57:46 Diagnosis: NORMAL SINUS RHYTHM LOW VOLTAGE QRS, CONSIDER PULMONARY DISEASE, PERICARDIAL EFFUSION, OR NORMAL VARIANT BORDERLINE ECG Confirmed by IGNACIO PARDO MD ([id number]) on 11/22/2024 1:57:41 PM Test Reason : TREMORS, BP Location : 86 : G101 G101-18 Overread By : IGNACIO PARDO MD Edited By : IGNACIO PARDO MD Referred By : , Acquired by : RACHEL PEREZEllett Memorial Hospital 12 leadOrdered By: Radiologist Radiology on 41-39-9727GEURSaint Mary's Hospital of [facility] Springs Work Phone: Urine Cultureon 26-11-4515Bqmhmuuv identified Cx Nom (U)No Growth 2 Days PERFORMED BY: [place] [id number] PATHOLOGIST FREEZING MACHINE OPERATOR CANDE CUNNINGHAM M.D.NormalHca Florida Putnam Hospital Physician GroupComment on above: Performed By: #### CUU #### [address] Auto Differential panel (Bld)Ordered By: Letitia Conway on 11-42-9171Vfailiklltkj Ql (Bld)PresentCleveland ClinicBasophils (Bld) [#/Vol]0.12 10*3/uLHighNINFTrihealth Bethesda Butler HospitalBasophils/100 WBC (Bld)5 % [facility] HospitalDifferential cell count method Nom (Bld)ManualCletrihealth Clinic Eosinophils (Bld) [#/Vol]0.07 10*3/uLNINFGodwin ClinicEosinophils/100 WBC (Bld)3 %[facility] HospitalErythrocyte distribution width (RBC) [Ratio]19.2 %High 11.5 - 15.0 %Barth ClinicHematocrit (Bld) [Volume fraction]25.4 %Low39.0 - 51.0 %Barth ClinicHemoglobin (Bld) [Mass/Vol]7.8 g/dLLow13.0 - 17.0 g/dL [facility] HospitalInterpretation and review of laboratory resultsAbnormalCleveland ClinicLymphocytes (Bld) [#/Vol]0.42 10*3/uLLowTrihealth Bethesda Butler HospitalLymphocytes/100 WBC (Bld)17 %[facility] HospitalH (RBC) [Entitic mass]30.4 pg26.0 - 34.0 pg [facility] HospitalHC (RBC) [Mass/Vol]30.7 g/dL30.5 - 36.0 g/dLTrihealth Bethesda Butler Hospital MCV (RBC) [Entitic vol]98.8 fL80.0 - 100.0 fLCleveland ClinicMeta %5 %Godwin ClinicMonocytes (Bld) [#/Vol]0.05 10*3/uLNINFTrihealth Bethesda Butler HospitalMonocytes/100 WBC (Bld)2 %[facility] HospitalMyelo %2 %[facility] HospitalNeutrophils (Bld) [#/Vol]1.62 10*3/uLTrihealth Bethesda Butler HospitalNeutrophils/100 WBC (Bld)66 %[facility] HospitalNucleated RBC (Bld) [#/Vol]0.02 10*3/uLHighNINFTrihealth Bethesda Butler HospitalNucleated RBC/100 WBC (Bld) [Ratio]1 %/100 WBCTrihealth Bethesda Butler HospitalOvalocytes LM Ql (Bld)FewTrihealth Bethesda Butler Hospital Platelet mean volume (Bld) [Entitic vol]9 fL9.0 - 12.7 fLCMercy Health West Hospital Platelets (Bld) [#/Vol]583 10*3/uLHighTrihealth Bethesda Butler HospitalPlatelets Estimate (Bld) [#/Vol]IncreasedTrihealth Bethesda Butler HospitalPolychromasia LM Ql (Bld)SlightTrihealth Bethesda [facility] Hospital RBC (Bld) [#/Vol]2.57 10*6/uLLow4.20 - 6.00 m/[facility] HospitalRed Cell Morph Reviewed: see results of individual morphologiesTrihealth Bethesda Butler HospitalWBC (Bld) [#/Vol]2.45 10*3/uLLowTrihealth Bethesda Butler HospitalWBC Left Shift Ql (Bld)PresentTrihealth Bethesda Butler HospitalThis is an appended report. These results have been appended to a previously verified report.[facility]UM[facility] HospitalCCF COMP METAB 2000 PNL SERPLon 63-22-0957XLF AST SERPL-CCNC20 U/L14 - 40 U/LNOMS [facility] BILIRUB SERPL-MCNC0.2 mg/dL0.2 - 1.3 mg/dLKansas City VA Medical Center PROT SERPL-MCNC5.5 g/dLLow6.3 - 8.0 g/dLSaint Mary's Hospital of Blue SpringsEGFRCR SERPLBLD CKD-EPI [id number]- PINFNONevada Regional Medical CenterComment on above:Estimated Glomerular Filtration Rate [...] GFR. Specimen Type: BLOOD SPECIMEN Ordering Facility: [facility] Address: [address] [place] [address] Original Ordering Provider: SUZE RENAE PHOSPHATE SERPL-MCNCon [id number] PHOSPHATE SERPL-MCNC4.7 mg/dL2.7 - 4.8 mg/dLSaint Mary's Hospital of Blue Springs Comprehensive metabolic 2000 panelon 38-70-4277WYQ [Catalytic activity/Vol]20 U/L14 - 40 U/LCleveland ClinicBilirubin [Mass/Vol]0.2 mg/dL0.2 - 1.3 mg/dL [facility] HospitalGFR/1.73 sq M.predicted among non-blacks MDRD (S/P/Bld) [...] ClinicLaboratory - Chemistry and Chemistry - challengeon 63-99-8785Uswcdmw [Mass/Vol]2.9 g/dLLow3.9 - 4.9 g/dLNOMS HealthcareALP [Catalytic activity/Vol]143 U/LHigh38 - 113 U/LNOMS HealthcareALT [Catalytic activity/Vol]11 U/L10 - 54 U/LNOMS HealthcareAnion gap [Moles/Vol]12 mmol/L8 - 15 mmol/LNOMS HealthcareCalcium [Mass/Vol]8.6 mg/dL8.5 - 10.2 mg/dLNOMS HealthcareChloride [Moles/Vol]101 mmol/L98 - 107 mmol/LNOMS HealthcareCO2 [Moles/Vol]22 mmol/L22 - 30 mmol/LNOMS HealthcareCreatinine [Mass/Vol]1.52 mg/dL High0.73 - 1.22 mg/dLNOMS HealthcareGlucose [Mass/Vol]88 mg/dL74 - 99 mg/dLNOWV HealthcareComment on above:The [place] Diabetes Association (ADA) provides guidance for cutoff [...] Standards of Medical Care in Diabetes 2016, [place] [employer] Association. Diabetes Care. 2016.39(Suppl 1). Magnesium [Mass/Vol]2.1 mg/dL1.7 - 2.3 mg/dLNOWV HealthcarePotassium [Moles/Vol] 5.1 mmol/L3.7 - 5.1 mmol/LNOMS HealthcareSodium [Moles/Vol]135 mmol/HYqo135 - 144 mmol/LNOMS HealthcareUrea nitrogen [Mass/Vol]17 mg/dL9 - 24 mg/dLNOWV HealthcareNo Panel Informationon 92-58-7215Zkggqinowafbnl and review of laboratory resultsAbnormalNOMS HealthcareInterpretation and review of laboratory resultsNormalCleveland ClinicNOMS HealthcareSpecimen Type: BLOOD SPECIMEN Ordering Facility: [facility] Address: [address] [place] [address] Original Ordering Provider: CAMILA GOMESYNCPATHOLOGIST INTERPRETATION CBC AND DIFFERENTIAL (LAB REFLEX ORDER-NO BILL)on 05-79-3523Jxabimogoxyr review Arthur (Unsp spec) [Interp]Reviewed by Marito Mak, [facility] Pathologist Interpretation, CBCDIFNormocytic anemia with slight polychromasia Leukopenia with absolute lymphopenia Thrombocytosis [facility] Community HospitalPHOSPHORUS INORGANICon 26-32-5866Gzjcutfth [Mass/Vol]4.7 mg/dL2.7 - 4.8 mg/dLLouis Stokes Cleveland VA Medical CenterTAFF REVIEWon 11-15-2024 ReviewedZW,[facility]aconess HospitalC-REACTIVE PROTEINon 53-05-4376JJM [Mass/Vol]20.7 mg/dLHighNINF - 0.9 mg/dLCincinnati Children's Hospital Medical CenterC W Auto Differential panel (Bld)on 82-92-7620Wwttshmoq (Bld) [#/Vol]0.06 10*3/uLNINFTrihealth Bethesda Butler Hospital Basophils/100 WBC (Bld)2.3 %[facility] HospitalDifferential cell count method Nom (Bld)AutoClevelCherrington HospitalEosinophils (Bld) [#/Vol]NINFCMercy Health West Hospital Eosinophils/100 WBC (Bld)0.4 %[facility] HospitalErythrocyte distribution width (RBC) [Ratio]19.1 %High11.5 - 15.0 %[facility] HospitalHematocrit (Bld) [Volume fraction]23.9 %Low39.0 - 51.0 %[facility] HospitalHemoglobin (Bld) [Mass/Vol]7.2 g/dLLow13.0 - 17.0 g/dLTrihealth Bethesda Butler HospitalImmature granulocytes (Bld) [#/Vol]0.11 10*3/uLHighNINFTrihealth Bethesda Butler HospitalImmature granulocytes/100 WBC (Bld)4.2 %[facility] HospitalInterpretation and review of laboratory resultsAbnormSycamore Medical Center Lymphocytes (Bld) [#/Vol]0.41 10*3/uLLowTrihealth Bethesda Butler HospitalLymphocytes/100 WBC (Bld)15.8 %[facility] HospitalH (RBC) [Entitic mass]30 pg26.0 - 34.0 pgClevelRed Wing Hospital and ClinicHC (RBC) [Mass/Vol]30.1 g/dLLow30.5 - 36.0 g/dLOhioHealth O'Bleness HospitalV (RBC) [Entitic vol]99.6 fL80.0 - 100.0 fLCmount carmel health system ClinicMonocytes (Bld) [#/Vol]0.08 10*3/uLNIOhioHealth Van Wert HospitalMonocytes/100 WBC (Bld)3.1 %[facility] Neutrophils (Bld) [#/Vol]1.92 10*3/uLTrihealth Bethesda Butler HospitalNeutrophils/100 WBC (Bld) 74.2 %[facility] HospitalNucleated RBC (Bld) [#/Vol]0.03 10*3/uLHighNIOhioHealth Van Wert HospitalNucleated RBC/100 WBC (Bld) [Ratio]1.2 %/100 WBCTrihealth Bethesda Butler HospitalPlatelet mean volume (Bld) [Entitic vol]9.1 fL9.0 - 12.7 fLCmount carmel health system ClinicPlatelets (Bld) [#/Vol]507 10*3/uLHighTrihealth Bethesda Butler HospitalRBC (Bld) [#/Vol]2.4 10*6/uLLow4.20 - 6.00 m/[facility] Memorial HospitalWBC (Bld) [#/Vol]2.59 10*3/uLLakeHealth Beachwood Medical CenterCCF PHOSPHATE SERPL-MCNCon 27-94-3844DGT PHOSPHATE SERPL-MCNC4.9 mg/dLHigh2.7 - 4.8 mg/dLNOWV HealthcareSpecimen Type: BLOOD SPECIMEN Ordering Facility: [facility] Address: [address] [place] [address] Original Ordering Provider: DAVID MYERSISYNCComprehensive metabolic 2000 panelon 12-09-6824Mxfrpfl [Mass/Vol]2.8 g/dLLow3.9 - 4.9 g/dLGodwin ClinicALP [Catalytic activity/Vol]136 U/LHigh38 - 113 U/LCleveland ClinicALT [Catalytic activity/Vol]12 U/L10 - 54 U/LCleveland ClinicAnion gap [Moles/Vol]10 mmol/L8 - 15 mmol/LCleveland ClinicAST [Catalytic activity/Vol]25 U/L14 - 40 U/LCleveland ClinicBilirubin [Mass/Vol]0.2 mg/dL0.2 - 1.3 mg/dLCleveland ClinicCalcium [Mass/Vol]8.6 mg/dL8.5 - 10.2 mg/dLGodwin ClinicChloride [Moles/Vol]102 mmol/L98 - 107 mmol/LCleveland ClinicCO2 [Moles/Vol]22 mmol/L22 - 30 mmol/L Godwin ClinicCreatinine [Mass/Vol]1.4 mg/dLHigh0.73 - 1.22 mg/dLCletrihealth ClinicGFR/1.73 sq M.predicted among non-blacks MDRD (S/P/Bld) [...] eGFRmay not accurately reflect actual GFR.Glucose [Mass/Vol]113 mg/qKHhyi51 - 99 mg/dL [facility] HospitalComment on above:The [place] Diabetes Association (ADA) provides guidance for cutoff [...] Standards of Medical Care in Diabetes 2016, [place] Diabetes Association. Diabetes Care. 2016.39(Suppl 1). Potassium [Moles/Vol]5.9 mmol/LHigh3.7 - 5.1 mmol/LCleveland ClinicProtein [Mass/Vol]5.7 g/dLLow6.3 - 8.0 g/dLLouis Stokes Cleveland VA Medical Centerodium [Moles/Vol]134 mmol/L Fuf512 - 144 mmol/LCleveland ClinicUrea nitrogen [Mass/Vol]20 mg/dL9 - 24 mg/dL [facility] HospitalGGTon 18-79-8138Tvdch glutamyl transferase [Catalytic activity/Vol]70 U/L10 - 70 U/LCleveland ClinicGamma glutamyl transferase [Catalytic activity/Vol]on 98-75-3810Wbvinqprwsgbrk and review of laboratory resultsNormalCleveland [facility] ClinicMAGNESIUMon 44-99-3456Zxvamkski [Mass/Vol]2.1 mg/dL1.7 - 2.3 mg/dLTrihealth Bethesda Butler HospitalMagnesium [Mass/Vol]on 03-88-2036Gjhodpvcnqyqdd and review of laboratory resultsNoMemorial Hospital NT PRO BNPon 78-32-8806Tduotlindui peptide.B prohormone N-Terminal [Mass/Vol]543 pg/mLHighNINF - 125 pg/mLClevelCherrington HospitalNatriuretic peptide.B prohormone N- Terminal [Mass/Vol]on 94-22-7887Dsqhgwefzdqsma and review of laboratory results AbnormalWVUMedicine Harrison Community HospitalNo Panel Informationon 11-14-2024 Interpretation and review of laboratory resultsAbnormalCMagruder HospitalInterpretation and review of laboratory resultsAbTrinity Health LivoniaS HealthcarePHOSPHORUS INORGANICon 37-18-4607Pvnvwdzpk [Mass/Vol]4.9 mg/dL High2.7 - 4.8 mg/dLTrihealth Bethesda Butler HospitalTACROLIMUS/FK-506 BLon 08-42-6053Epmfmsjyer (Bld) [Mass/Vol]10.2 ng/mL5.0 - 20.0 ng/mLCleveland ClinicComment [...] situation. Test performed by chemiluminescent immunoassay using Pointnity i.Tacrolimus (Bld) [Mass/Vol]on 44-68-7525Afeeonnzapuwyq and review of laboratory resultsNormalCUC [facility] 85-22-5901Sgwlmhtvg, Radiologist, - 11/13/2024 Q3 Patient Name: Loyd Blandon Procedure Date: 11/13/2024 1:11 PM Date of : 1955 Admit Type: Outpatient Age: 69 Gender: Male Note Status: Finalized Attending MD: Jane Correia MD, [id number] Procedure: ERCP Indications: Common bile duct stone(s), [...] administered by the anesthesia team. Findings: A logger driving horses film of the abdomen was obtained. Surgical [...] 3 months. Procedure Code(s): --- Professional --- 03874, Endoscopic retrograde cholangiopancreatography (ERCP); with removal of calculi/debris from biliary/pancreatic duct(s) 70065, Endoscopic catheterization of the biliary ductal system, radiological supervision and interpretation Diagnosis Code(s): --- Professional --- Z96.89, Presence of other specified functional implants K80.51, Calculus of bile duct without cholangitis or cholecystitis with obstruction Z09, Encounter for follow-up examination after completed treatment for conditions other than malignant neoplasm Z94.4, Liver transplant status CPT copyright 2020 [place] [employer]. All rights reserved. Attending Participation: I was present and participated during the entire procedure, including non-david portions. Scope In: 2:57:12 PM Scope Out: 3:17:12 PM MD Jane Alexander MD 11/13/2024 3:25:50 PM This report has been signed electronically by Jane Correia MD Number of Addenda: 0 Note Initiated On: 11/13/2024 1:11 PM NOMS HealthcareERCPOrdered By: Radiologist Radiology on 12-57-5215ECFV Healthcare Work Phone: ERCP Study observation Narrativeon 93-85-8662Smeulsgjy ClinicNo Panel Informationon 41-71-0387Pzdeceejr Study observation (narrative) NOM HealthcareC-REACTIVE PROTEINon 31-87-5368HOT [Mass/Vol]16.9 mg/dLHighNINF - 0.9 mg/dLCincinnati Children's Hospital Medical CenterC W Auto Differential panel (Bld)on 11-11-2024 Anisocytosis Ql (Bld)PresentCleGlenbeigh HospitalBasophils (Bld) [#/Vol]0.13 10*3/uL HighNINFTrihealth Bethesda Butler HospitalBasophils/100 WBC (Bld)4 %[facility] HospitalDifferential cell count method Nom (Bld)ManualCleGlenbeigh HospitalEosinophils (Bld) [#/Vol]0.1 10*3/uLNINFTrihealth Bethesda Butler HospitalEosinophils/100 WBC (Bld)3 %[facility] Erythrocyte distribution width (RBC) [Ratio]18.6 %High11.5 - 15.0 %[facility] HospitalHematocrit (Bld) [Volume fraction]25.6 %Low39.0 - 51.0 %[facility] Hemoglobin (Bld) [Mass/Vol]8 g/dLLow13.0 - 17.0 g/dLTrihealth Bethesda Butler Hospital Interpretation and review of laboratory resultsAbnormalCMercy Health West Hospital Lymphocytes (Bld) [#/Vol]0.23 10*3/uLLowTrihealth Bethesda Butler HospitalLymphocytes/100 WBC (Bld)7 %[facility] HospitalMCH (RBC) [Entitic mass]30.8 pg26.0 - 34.0 pgClevelRed Wing Hospital and ClinicHC (RBC) [Mass/Vol]31.3 g/dL30.5 - 36.0 g/dLOhioHealth O'Bleness HospitalV (RBC) [Entitic vol]98.5 fL80.0 - 100.0 fLCleveland Lakes Medical CenterMeta %3 %[facility] Monocytes (Bld) [#/Vol]0.1 10*3/uLNINFTrihealth Bethesda Butler HospitalMonocytes/100 WBC (Bld)3 % [facility]hesda [facility] HospitalNeutrophils (Bld) [#/Vol]2.58 10*3/uLTrihealth Bethesda Butler Hospital Neutrophils/100 WBC (Bld)80 %[facility] HospitalNucleated RBC (Bld) [#/Vol]NINF [facility] HospitalNucleated RBC/100 WBC (Bld) [Ratio]0 %/100 WBCTrihealth Bethesda [facility] Ovalocytes LM Ql (Bld)FewTrihealth Bethesda Butler HospitalPlatelet mean volume (Bld) [Entitic vol]9 fL9.0 - 12.7 fLCleveland ClinicPlatelets (Bld) [#/Vol]561 10*3/uLHigh [facility] HospitalPlatelets Estimate (Bld) [#/Vol]IncreasedTrihealth Bethesda [facility] Polychromasia LM Ql (Bld)SlightTrihealth Bethesda Butler HospitalRBC (Bld) [#/Vol]2.6 10*6/uLLow 4.20 - 6.00 m/uLTrihealth Bethesda Butler HospitalRed Cell MorphReviewed: see results of individual morphologiesTrihealth Bethesda Butler HospitalWBC (Bld) [#/Vol]3.22 10*3/uLLowTrihealth Bethesda Butler HospitalWBC Left Shift Ql (Bld)PresentTrihealth Bethesda Butler HospitalThis is an appended report. These results have been appended to a previously verified report.[facility] NT-PROBNP SERPL-NCon [id number] peptide B (Bld) [Mass/Vol]453 pg/mLHighNINF - 125 pg/mLNOMS HealthcareSpecimen Type: BLOOD SPECIMEN Ordering Facility: [facility] Address: [address] [place] [address] Original Ordering Provider: DAVID BRAVOCYTOMEGALOVIRUS (CMV) DNA, QUANTITATIVE PCR, PLASMAon [id number] DNA JESSICA+probe Qn (P)Not detectedNot DetectedTrihealth Bethesda Butler HospitalInterpretation and review of laboratory resultsNormal [facility] CMV is an in vitro nucleic acid amplification test for the quantitation of cytomegalovirus (CMV) DNA in human EDTA plasma. The linear range of the assay is 34.5 to 10,000,000 IU/mL (1.54 - 7.00log IU/mL). The lower limit of detection of the assay is 34.5 IU/mL.[facility] Comprehensive metabolic 2000 panelon [id number] [Mass/Vol]3 g/dLLow3.9 - 4.9 g/dLGodwin ClinicALP [Catalytic activity/Vol]151 U/LHigh38 - 113 U/L Godwin ClinicALT [Catalytic activity/Vol]11 U/L10 - 54 U/LCleveland Clinic Anion gap [Moles/Vol]12 mmol/L8 - 15 mmol/LCleveland ClinicAST [Catalytic activity/Vol]19 U/L14 - 40 U/LCleveland ClinicBilirubin [Mass/Vol]0.3 mg/dL0.2 - 1.3 mg/dLGodwin ClinicCalcium [Mass/Vol]8.8 mg/dL8.5 - 10.2 mg/dLGodwin ClinicChloride [Moles/Vol]100 mmol/L98 - 107 mmol/LCleveland ClinicCO2 [Moles/Vol]24 mmol/L22 - 30 mmol/LCleveland ClinicCreatinine [Mass/Vol]1.52 mg/dLHigh0.73 - 1.22 mg/dLGodwin ClinicGFR/1.73 sq M.predicted among non- blacks MDRD [...] reflect actual GFR.Glucose [Mass/Vol]90 mg/dL74 - 99 mg/dLTrihealth Bethesda Butler HospitalComment on above:The [place] Diabetes Association (ADA) provides guidance for cutoff [...] Standards of Medical Care in Diabetes 2016, [place] [employer] Association. Diabetes Care. 2016.39(Suppl 1). Potassium [Moles/Vol]5 mmol/L3.7 - 5.1 mmol/LCleveland ClinicProtein [Mass/Vol] 5.8 g/dLLow6.3 - 8.0 g/dLGodwin ClinicSodium [Moles/Vol]136 mmol/L136 - 144 mmol/LCleveland ClinicUrea nitrogen [Mass/Vol]18 mg/dL9 - 24 mg/dLTrihealth Bethesda Butler HospitalGGTon 81-75-5373Xanzr glutamyl transferase [Catalytic activity/Vol]93 U/L High10 - 70 U/LCleveland Lakes Medical CenterGamma glutamyl transferase [Catalytic activity/Vol]on 75-52-2134Bqrlpahfomvcuf and review of laboratory results AbnormalWVUMedicine Harrison Community HospitalMAGNESIUMon 04-21-1243Kobggkjds [Mass/Vol]2.2 mg/dL1.7 - 2.3 mg/dLTrihealth Bethesda Butler HospitalMagnesium [Mass/Vol]on 77-36-4976Manzigudllzwda and review of laboratory resultsNormalCMercy Health West Hospital NT PRO BNPon 00-66-4339Nhyeqkopoyf peptide.B prohormone N-Terminal [Mass/Vol]453 pg/mLHighNINF - 125 pg/mLCleveland Lakes Medical CenterNo Panel Informationon 11-11-2024 [facility] HospitalInterpretation and review of laboratory resultsAbnormalCleveland ClinicInterpretation and review of laboratory resultsAbnormHaven Behavioral Hospital of Eastern Pennsylvania NOMS HealthcarePHOSPHORUS INORGANICon 26-92-3635Tlgszlibv [Mass/Vol]3.9 mg/dL2.7 - 4.8 mg/dLTrihealth Bethesda Butler HospitalPhosphate [Mass/Vol]on 92-75-8743Tbplcskfseoojd and review of laboratory resultsNormalCtrumbull regional medical centerand Kettering Health HamiltonTACROLIMUS/FK- 506 BLOrdered By: Brayan Malloy on 35-56-3801Zajuasukxj (Bld) [Mass/Vol]11.5 ng/mL5.0 - 20.0 ng/mLCleveland ClinicComment [...] 11-11-2024 Interpretation and review of laboratory resultsNormalCleveland [facility] metabolic 2000 panelon 22-20-8786PNZ/1.73 sq M.predicted among non- blacks MDRD (S/P/Bld) [Vol rate/Area]48 mL/min/{1.73_m2}Low- PINFClevelCherrington HospitalComment on above:Estimated Glomerular Filtration Rate (eGFR) [...] actual GFR.CCF BAS METAB 1999 PNL SERPLon 04-92-4867UADFVR SERPLBLD CKD-EPI 206281Eud- PINFSaint Mary's Hospital of Blue SpringsComment on above:Estimated Glomerular Filtration Rate (eGFR) is [...] actual GFR.Specimen Type: BLOOD SPECIMEN Ordering Facility: [facility] Address: [address] [place] [address] Original Ordering Provider: KELL KHANISYGARRICKCCF PHOSPHATE SERPL-MCNCon [id number] PHOSPHATE SERPL-MCNC4.4 mg/dL2.7 - 4.8 mg/dLSaint Mary's Hospital of Blue Springs Laboratory - Chemistry and Chemistry - challengeon 14-03-1990Vkcanzi [Mass/Vol] 3.4 g/dLLow3.9 - 4.9 g/dLNOWV HealthcareAnion gap [Moles/Vol]11 mmol/L8 - 15 mmol/LNOMS HealthcareCalcium [Mass/Vol]9 mg/dL8.5 - 10.2 mg/dLNONevada Regional Medical Center Chloride [Moles/Vol]97 mmol/LLow98 - 107 mmol/LNOMS HealthcareCO2 [Moles/Vol]27 mmol/L22 - 30 mmol/LNOMS HealthcareCreatinine [Mass/Vol]1.55 mg/dLHigh0.73 - 1.22 mg/dLNOWV HealthcareGlucose [Mass/Vol]92 mg/dL74 - 99 mg/dLNONevada Regional Medical Center Comment on above:The [place] Diabetes Association (ADA) provides guidance for cutoff [...] Standards of Medical Care in Diabetes 2016, [place] Diabetes Association. Diabetes Care. 2016.39(Suppl 1). Magnesium [Mass/Vol]2.1 mg/dL1.7 - 2.3 mg/dLNOWV HealthcarePotassium [Moles/Vol] 4.6 mmol/L3.7 - 5.1 mmol/LNOMS HealthcareSodium [Moles/Vol]135 mmol/XJvg964 - 144 mmol/LNOMS HealthcareUrea nitrogen [Mass/Vol]17 mg/dL9 - 24 mg/dLNONevada Regional Medical CenterNo Panel Informationon 96-02-8775Rodifmpahatxab and review of laboratory resultsAbnormalNOWV HealthcareInterpretation and review of laboratory resultsNormalCleveland ClinicSpecimen Type: BLOOD SPECIMEN Ordering Facility: [facility] Address: [address] [place] [address] Original Ordering Provider: CAMILA FERNANDEZ [facility] HospitalPHOSPHORUS INORGANICon 58-50-0722Xnfxvgmih [Mass/Vol]4.4 mg/dL2.7 - 4.8 mg/dLWayne Hospital-REACTIVE PROTEINon 22-55-9678HDP [Mass/Vol]17.2 mg/dLHighNINF - 0.9 mg/dLLima Memorial Hospital W Auto Differential panel (Bld)on 11-07-2024 Anisocytosis Ql (Bld)PresentCleGlenbeigh HospitalBasophils (Bld) [#/Vol]0.09 10*3/uL NINFCleveland ClinicBasophils/100 WBC (Bld)3 %[facility] HospitalDifferential cell count method Nom (Bld)ManualCleGlenbeigh HospitalEosinophils (Bld) [#/Vol]0.03 10*3/uLNINFTrihealth Bethesda Butler HospitalEosinophils/100 WBC (Bld)1 %[facility] Erythrocyte distribution width (RBC) [Ratio]17.9 %High11.5 - 15.0 %[facility] HospitalHematocrit (Bld) [Volume fraction]23.7 %Low39.0 - 51.0 %[facility] Hemoglobin (Bld) [Mass/Vol]7.5 g/dLLow13.0 - 17.0 g/dLTrihealth Bet[facility]da [facility] Interpretation and review of laboratory resultsAbnormalCMercy Health West Hospital Lymphocytes (Bld) [#/Vol]0.44 10*3/uLLowTrihealth Bethesda Butler HospitalLymphocytes/100 WBC (Bld)14 %[facility] HospitalH (RBC) [Entitic mass]30.2 pg26.0 - 34.0 pgCleveland Cook HospitalHC (RBC) [Mass/Vol]31.6 g/dL30.5 - 36.0 g/dLOhioHealth O'Bleness HospitalV (RBC) [Entitic vol]95.6 fL80.0 - 100.0 fLCleveland Lakes Medical CenterMeta %1 %[facility] Monocytes (Bld) [#/Vol]0.16 10*3/uLNINFTrihealth Bethesda Butler HospitalMonocytes/100 WBC (Bld)5 %[facility] HospitalNeutrophils (Bld) [#/Vol]2.4 10*3/uLTrihealth [facility] Neutrophils/100 WBC (Bld)76 %[facility] HospitalNucleated RBC (Bld) [#/Vol]NINF [facility] HospitalNucleated RBC/100 WBC (Bld) [Ratio]0 %/100 WBCTrihealth Bethesda [facility] Hospital Platelet mean volume (Bld) [Entitic vol]9.3 fL9.0 - 12.7 fLCMercy Health West Hospital Platelets (Bld) [#/Vol]580 10*3/uLHighTrihealth Bethesda Butler HospitalPlatelets Estimate (Bld) [#/Vol]IncreasedCleGlenbeigh HospitalRBC (Bld) [#/Vol]2.48 10*6/uLLow4.20 - 6.00 m/uL [facility] HospitalRed Cell MorphReviewed: see results of individual morphologies [facility] HospitalWBC (Bld) [#/Vol]3.16 10*3/uLLowTrihealth Bethesda Butler HospitalWBC Left Shift Ql (Bld)PresentTrihealth Bethesda Butler HospitalThis is an appended report. These results have been appended to a previously verified report.[facility] PHOSPHATE SERPL-MCNCon [id number] PHOSPHATE SERPL-MCNC4.6 mg/dL2.7 - 4.8 mg/dLNONevada Regional Medical CenterSpecimen Type: BLOOD SPECIMEN Ordering Facility: [facility] Address: [address] [place] [address] Original Ordering Provider: DAVID MYERSISYNCComprehensive metabolic 2000 panelon 76-42-0635Nmfdbmg [Mass/Vol]3 g/dLLow3.9 - 4.9 g/dLGodwin ClinicALP [Catalytic activity/Vol]156 U/LHigh38 - 113 U/LCleveland ClinicALT [Catalytic activity/Vol]12 U/L10 - 54 U/LCleveland ClinicAnion gap [Moles/Vol]16 mmol/LHigh 8 - 15 mmol/LCleveland ClinicAST [Catalytic activity/Vol]18 U/L14 - 40 U/L [facility] HospitalBilirubin [Mass/Vol]0.3 mg/dL0.2 - 1.3 mg/dLTrihealth Bethesda [facility] Hospital Calcium [Mass/Vol]8.8 mg/dL8.5 - 10.2 mg/dLGodwin ClinicChloride [Moles/Vol] 96 mmol/LLow98 - 107 mmol/LCleveland ClinicCO2 [Moles/Vol]24 mmol/L22 - 30 mmol/LCleveland ClinicCreatinine [Mass/Vol]1.5 mg/dLHigh0.73 - 1.22 mg/dL [facility] HospitalGFR/1.73 sq M.predicted among non-blacks MDRD (S/P/Bld) [Vol rate/Area]49 mL/min/{1.73_m2}Low- PINFCleveland Lakes Medical CenterComment on above:Estimated Glomerular Filtration Rate [...] reflect actual GFR.Glucose [Mass/Vol]77 mg/dL74 - 99 mg/dLTrihealth Bethesda Butler HospitalComment on above:The [place] Diabetes Association (ADA) provides guidance for cutoff [...] Standards of Medical Care in Diabetes 2016, [place] Diabetes Association. Diabetes Care. 2016.39(Suppl 1). Potassium [Moles/Vol]4.8 mmol/L3.7 - 5.1 mmol/LCleveland ClinicProtein [Mass/Vol]5.4 g/dLLow6.3 - 8.0 g/dLLouis Stokes Cleveland VA Medical Centerodium [Moles/Vol]136 mmol/L 136 - 144 mmol/LCleveland ClinicUrea nitrogen [Mass/Vol]16 mg/dL9 - 24 mg/dL [facility] HospitalGGTon 74-98-3035Ietgq glutamyl transferase [Catalytic activity/Vol]98 U/LHigh10 - 70 U/LCleveland ClinicGamma glutamyl transferase [Catalytic activity/Vol]on 35-22-4002Uxjsxmzfpumkjr and review of laboratory resultsAbnormalCleveland Kettering Health HamiltonMAGNESIUMon 29-59-7703Yucjecqmx [Mass/Vol]2 mg/dL1.7 - 2.3 mg/dLTrihealth Bethesda Butler HospitalMagnesium [Mass/Vol]on 33-49-3013Ffjrnppmjjrbth and review of laboratory resultsNormalCleveland Clinic NT PRO BNPon 98-55-5778Yxvuewzjqjc peptide.B prohormone N-Terminal [Mass/Vol]365 pg/mLHighNINF - 125 pg/mLCleveland Lakes Medical CenterNatriuretic peptide.B prohormone N- Terminal [Mass/Vol]on 66-00-0107Cjajbkzptnrsew and review of laboratory results AbnormalCleMarymount HospitalNo Panel Informationon 11-07-2024 Interpretation and review of laboratory resultsAbnormalCleveland [facility] HealthcarePHOSPHORUS INORGANICon 86-32-6547Vmpfnunmi [Mass/Vol]4.6 mg/dL2.7 - 4.8 mg/dLTrihealth Bethesda Butler HospitalPhosphate [Mass/Vol]on 11-07-2024 Interpretation and review of laboratory resultsNormalCMercy Health West Hospital TACROLIMUS/FK-506 BLon 18-37-5542Nzjfgwlnvr (Bld) [Mass/Vol]8.6 ng/mL5.0 - 20.0 ng/mLCleveland ClinicComment [...] immunoassay using Lakhani Alinity i.Tacrolimus (Bld) [Mass/Vol]on 73-53-5287Zgdwtmppfazwrw and review of laboratory results NormalOhioHealth Mansfield Hospital-REACTIVE PROTEINon [id number] [Mass/Vol]20.3 mg/dLHighNINF - 0.9 mg/dLLima Memorial Hospital W Auto Differential panel (Bld)on 59-92-4560Qrylexcystwa Ql (Bld)PresentTrihealth Bethesda Butler HospitalBasophils (Bld) [#/Vol]0.07 10*3/uLNINFTrihealth Bethesda Butler HospitalBasophils/100 WBC (Bld)2 %[facility] HospitalDifferential cell count method Nom (Bld)ManualCleGlenbeigh HospitalEosinophils (Bld) [#/Vol]0.03 10*3/uLNINFTrihealth Bethesda Butler HospitalEosinophils/100 WBC (Bld)1 % [facility] HospitalErythrocyte distribution width (RBC) [Ratio]17.3 %High11.5 - 15.0 %[facility] HospitalHematocrit (Bld) [Volume fraction]24.5 %Low39.0 - 51.0 % [facility] HospitalHemoglobin (Bld) [Mass/Vol]7.6 g/dLLow13.0 - 17.0 g/dLTrihealth Bethesda Butler HospitalInterpretation and review of laboratory resultsAbnormalCMercy Health West Hospital Lymphocytes (Bld) [#/Vol]0.5 10*3/uLLowTrihealth Bethesda Butler HospitalLymphocytes/100 WBC (Bld) 15 %[facility] HospitalH (RBC) [Entitic mass]29.7 pg26.0 - 34.0 pgClevelRed Wing Hospital and ClinicHC (RBC) [Mass/Vol]31 g/dL30.5 - 36.0 g/dLOhioHealth O'Bleness HospitalV (RBC) [Entitic vol]95.7 fL80.0 - 100.0 fLCtrumbull regional medical centerand ClinicMeta %2 %[facility] Monocytes (Bld) [#/Vol]0.23 10*3/uLNIOhioHealth Van Wert HospitalMonocytes/100 WBC (Bld)7 %[facility] HospitalNeutrophils (Bld) [#/Vol]2.42 10*3/uLTrihealth Bethesda [facility] Neutrophils/100 WBC (Bld)73 %[facility] HospitalNucleated RBC (Bld) [#/Vol]NINF [facility] HospitalNucleated RBC/100 WBC (Bld) [Ratio]0 %/100 WBCTrihealth Bethesda Butler Hospital Ovalocytes LM Ql (Bld)FewTrihealth Bethesda Butler HospitalPlatelet mean volume (Bld) [Entitic vol]8.9 fLLow9.0 - 12.7 fLCleveland ClinicPlatelets (Bld) [#/Vol]554 10*3/uLHigh [facility] HospitalPlatelets Estimate (Bld) [#/Vol]IncreasedCleGlenbeigh HospitalRBC (Bld) [#/Vol]2.56 10*6/uLLow4.20 - 6.00 m/uLTrihealth Bethesda Butler HospitalRed Cell Morph Reviewed: see results of individual morphologiesTrihealth Bethesda Butler HospitalWBC (Bld) [#/Vol]3.31 10*3/uLLowKettering Health Greene Memorial Left Shift Ql (Bld)PresentTrihealth Bethesda Butler HospitalThis is an appended report. These results have been appended to a previously verified report.[facility] HospitalCCF BACTERIA SPEC ANAEROBE CULTon [id number] BACTERIA SPEC ANAEROBE CULT CULTURE, ANAEROBE: Negative for anaerobes. NOMS HealthcareOriginal Ordering Provider: ROSALINDA MCKEONIndiana University Health [facility] NT-PROBNP SERPL-MCNCon [id number] peptide B (Bld) [Mass/Vol]444 pg/mLHighNINF - 125 pg/mLNCIMARRON MEMORIAL [facility] HealthcareSpecimen Type: BLOOD SPECIMEN Ordering Facility: [facility] Address: [address] [place] [address] Original Ordering Provider: DAVID BRAVOCREATINE KINASE/CKon [id number] [Catalytic activity/Vol]10 U/LLow51 - 298 U/LCleveland [facility] CYTOMEGALOVIRUS (CMV) DNA, QUANTITATIVE PCR, PLASMAon [id number] DNA JESSICA+probe Qn (P)Not detectedNot DetectedTrihealth Bethesda Butler HospitalInterpretation and review of laboratory resultsNormalCleveland Cliniccobas CMV is an in vitro nucleic acid amplification test for the quantitation of cytomegalovirus (CMV) DNA in human EDTA plasma. The linear range of the assay is 34.5 to 10,000,000 IU/mL (1.54 - 7.00log IU/mL). The lower limit of detection of the assay is 34.5 IU/mL.[facility] HospitalComprehensive metabolic 2000 panelon 24-21-0808Erhuyca [Mass/Vol]2.6 g/dLLow3.9 - 4.9 g/dLGodwin ClinicALP [Catalytic activity/Vol]165 U/LHigh38 - 113 U/LCleveland ClinicALT [Catalytic activity/Vol]10 U/L10 - 54 U/LCleveland ClinicAnion gap [Moles/Vol]11 mmol/L8 - 15 mmol/LCleveland ClinicAST [Catalytic activity/Vol]17 U/L14 - 40 U/LCleveland ClinicBilirubin [Mass/Vol]0.3 mg/dL0.2 - 1.3 mg/dLGodwin ClinicCalcium [Mass/Vol]8.5 mg/dL8.5 - 10.2 mg/dLGodwin ClinicChloride [Moles/Vol]98 mmol/L 98 - 107 mmol/LCleveland ClinicCO2 [Moles/Vol]25 mmol/L22 - 30 mmol/LCleveland ClinicCreatinine [Mass/Vol]0.99 mg/dL0.73 - 1.22 mg/dLGodwin ClinicGFR/1.73 sq M.predicted among non-blacks MDRD (S/P/Bld) [...] actual GFR.Glucose [Mass/Vol]88 mg/dL74 - 99 mg/dL [facility] HospitalComment on above:The [place] Diabetes Association (ADA) provides guidance for cutoff [...] Standards of Medical Care in Diabetes 2016, [place] Diabetes Association. Diabetes Care. 2016.39(Suppl 1). Potassium [Moles/Vol]5 mmol/L3.7 - 5.1 mmol/LCleveland ClinicProtein [Mass/Vol] 5.2 g/dLLow6.3 - 8.0 g/dLGodwin ClinicSodium [Moles/Vol]134 mmol/LMpi247 - 144 mmol/LCleveland ClinicUrea nitrogen [Mass/Vol]10 mg/dL9 - 24 mg/dLTrihealth Bethesda Butler HospitalGGTon 61-32-1224Kizfe glutamyl transferase [Catalytic activity/Vol]114 U/L High10 - 70 U/LCleveland Lakes Medical CenterGamma glutamyl transferase [Catalytic activity/Vol]on 39-89-8196Dmklwcaifziwps and review of laboratory results AbnormalMemorial Hospital ClinicMAGNESIUMon 78-25-5365Acmdxpdwt [Mass/Vol]1.6 mg/dLLow1.7 - 2.3 mg/dLTrihealth Bethesda Butler HospitalNT PRO BNPon 11-04-2024 Natriuretic peptide.B prohormone N-Terminal [Mass/Vol]444 pg/mLHighNINF - 125 pg/mLCleveland Lakes Medical CenterNo Panel Informationon 04-92-3989Hicuzzysuqeixo and review of laboratory resultsAbnormalCleveland Kettering Health HamiltonInterpretation and review of laboratory resultsAbnormalNOMS HealthcareNOMS HealthcarePHOSPHORUS INORGANICon 05-28-6995Opyybvjcm [Mass/Vol]4.9 mg/dLHigh2.7 - 4.8 mg/dLTrihealth Bethesda Butler HospitalPhosphate [Mass/Vol]on 49-53-1750Bdlxkkrduqjqmk and review of laboratory resultsAbnormalCMagruder HospitalTACROLIMUS/FK-506 BLOrdered By: Troy Roman on 21-98-4350Mpwqlawyvl (Bld) [Mass/Vol]13.8 ng/mL5.0 - 20.0 ng/mLCleveland ClinicComment [...] i.Tacrolimus (Bld) [Mass/Vol]Ordered By: Troy Roman on 70-09-1839Culzcvrzhgpcgo and review of laboratory resultsNormalCtrumbull regional medical centerand Kettering Health HamiltonCB W Auto Differential panel (Bld)on 17-36-6382Aukzjtujnuvh Ql (Bld)PresentTrihealth Bethesda Butler HospitalBasophils (Bld) [#/Vol]0 10*3/uLNINFTrihealth Bethesda Butler HospitalBasophils/100 WBC (Bld)0 %[facility] HospitalDifferential cell count method Nom (Bld)ManualCletrihealth ClinicEosinophils (Bld) [#/Vol]0 10*3/uLNINFTrihealth Bethesda Butler HospitalEosinophils/100 WBC (Bld)0 %[facility] HospitalErythrocyte distribution width (RBC) [Ratio]17.2 %High 11.5 - 15.0 %[facility] HospitalHematocrit (Bld) [Volume fraction]25.9 %Low39.0 - 51.0 %[facility] HospitalHemoglobin (Bld) [Mass/Vol]8.3 g/dLLow13.0 - 17.0 g/dL [facility] HospitalInterpretation and review of laboratory resultsAbnormalCleveland ClinicLymphocytes (Bld) [#/Vol]0.24 10*3/uLLowTrihealth Bethesda Butler HospitalLymphocytes/100 WBC (Bld)6 %[facility] HospitalH (RBC) [Entitic mass]30 pg26.0 - 34.0 pgClevelRed Wing Hospital and ClinicHC (RBC) [Mass/Vol]32 g/dL30.5 - 36.0 g/dLOhioHealth O'Bleness HospitalV (RBC) [Entitic vol]93.5 fL80.0 - 100.0 fLCleveland ClinicMonocytes (Bld) [#/Vol]0.12 10*3/uLNINFTrihealth Bethesda Butler HospitalMonocytes/100 WBC (Bld)3 %[facility] HospitalNeutrophils (Bld) [#/Vol]3.69 10*3/uLTrihealth Bethesda Butler HospitalNeutrophils/100 WBC (Bld)91 %[facility] HospitalNucleated RBC (Bld) [#/Vol]NINFCleveland ClinicNucleated RBC/100 WBC (Bld) [Ratio]0 %/100 WBCTrihealth Bethesda Butler HospitalOvalocytes LM Ql (Bld)FewCletrihealth ClinicPlatelet mean volume (Bld) [Entitic vol]8.8 fLLow9.0 - 12.7 fLCleveland ClinicPlatelets (Bld) [#/Vol]570 10*3/uLHighCletrihealth ClinicPlatelets Estimate (Bld) [#/Vol]IncreasedCletrihealth ClinicRBC (Bld) [#/Vol]2.77 10*6/uLLow4.20 - 6.00 m/[facility] HospitalRed Cell MorphReviewed: see results of individual morphologiesKettering Health Greene Memorial ([facility]) [#/Vol]4.05 10*3/[facility] HospitalThis is an appended report. These results have been appended to a previously verified report.[facility] RENAL FUNC 2000 PNL SERPLon [id number] PHOSPHATE SERPL-MCNC4.2 mg/dL2.7 - 4.8 mg/dLNOMS HealthcareEGFRCR SERPLBLD CKD-EPI 106258- PINFNOMS HealthcareComment on above:Estimated Glomerular Filtration Rate [...] GFR.Laboratory - Chemistry and Chemistry - challengeon 36-13-6494Kwmwjfi [Mass/Vol]2.6 g/dLLow3.9 - 4.9 g/dLNOMS HealthcareAnion gap [Moles/Vol]10 mmol/L8 - 15 mmol/LNOMS HealthcareCalcium [Mass/Vol]8.5 mg/dL8.5 - 10.2 mg/dLNOMS HealthcareChloride [Moles/Vol]99 mmol/L 98 - 107 mmol/LNOMS HealthcareCO2 [Moles/Vol]25 mmol/L22 - 30 mmol/LNOMS HealthcareCreatinine [Mass/Vol]0.84 mg/dL0.73 - 1.22 mg/dLNOMS HealthcareGlucose [Mass/Vol]107 mg/mZQdav80 - 99 mg/dLNOWV HealthcareComment on above:The [place] Diabetes Association (ADA) provides guidance for cutoff [...] Standards of Medical Care in Diabetes 2016, [place] Diabetes Association. Diabetes Care. 2016.39(Suppl 1). Magnesium [Mass/Vol]1.5 mg/dLLow1.7 - 2.3 mg/dLNOMS HealthcarePotassium [Moles/Vol]4.7 mmol/L3.7 - 5.1 mmol/LNOMS HealthcareSodium [Moles/Vol]134 mmol/L Xjs859 - 144 mmol/LNOMS HealthcareUrea nitrogen [Mass/Vol]7 mg/dLLow9 - 24 mg/dL NOM HealthcareNo Panel Informationon 30-54-0668Nnjwbiyrcttciz and review of laboratory resultsAbnoGeisinger Community Medical CenterSpecimen Type: BLOOD SPECIMEN Ordering Facility: [facility] Address: [address] [place] [address] Original Ordering Provider: CAMILA FERNANDEZ [facility] HospitalRenal function 2000 panelon 81-62-7909TUH/1.73 sq M.predicted among non-blacks MDRD (S/P/Bld) [Vol rate/Area]93 mL/min/{1.73_m2}- [facility] Centerand ClinicComment on above: Estimated Glomerular Filtration Rate [...] reflect actual GFR.Phosphate [Mass/Vol]4.2 mg/dL2.7 - 4.8 mg/dLLima Memorial Hospital W Auto Differential panel (Bld)on 11-01-2024 Anisocytosis Ql (Bld)PresentCletrihealth ClinicBasophils (Bld) [#/Vol]0.09 10*3/uL NINFCleveland ClinicBasophils/100 WBC (Bld)2 %[facility] HospitalDifferential cell count method Nom (Bld)ManualCletrihealth ClinicEosinophils (Bld) [#/Vol]0.04 10*3/uLNINFTrihealth Bethesda Butler HospitalEosinophils/100 WBC (Bld)1 %[facility] Erythrocyte distribution width (RBC) [Ratio]17.6 %High11.5 - 15.0 %[facility] HospitalHematocrit (Bld) [Volume fraction]26.3 %Low39.0 - 51.0 %[facility] Hemoglobin (Bld) [Mass/Vol]8.2 g/dLLow13.0 - 17.0 g/dLTrihealth Bethesda [facility] Interpretation and review of laboratory resultsAbnormalCMercy Health West Hospital Lymphocytes (Bld) [#/Vol]0.22 10*3/uLLowTrihealth Bethesda Butler HospitalLymphocytes/100 WBC (Bld)5 %[facility] HospitalH (RBC) [Entitic mass]29.8 pg26.0 - 34.0 pgCRegency Hospital Cleveland WestHC (RBC) [Mass/Vol]31.2 g/dL30.5 - 36.0 g/dLOhioHealth O'Bleness HospitalV (RBC) [Entitic vol]95.6 fL80.0 - 100.0 fLCtrumbull regional medical centerand ClinicMeta %1 %[facility] Monocytes (Bld) [#/Vol]0.09 10*3/uLNINFTrihealth Bethesda Butler HospitalMonocytes/100 WBC (Bld)2 %[facility] HospitalNeutrophils (Bld) [#/Vol]3.9 10*3/uLTrihealth Bethesda [facility] Neutrophils/100 WBC (Bld)89 %[facility] HospitalNucleated RBC (Bld) [#/Vol]NINF [facility] HospitalNucleated RBC/100 WBC (Bld) [Ratio]0 %/100 WBCTrihealth Bethesda [facility] Hospital Ovalocytes LM Ql (Bld)FewTrihealth Bethesda Butler HospitalPlatelet mean volume (Bld) [Entitic vol]9 fL9.0 - 12.7 fLCleveland ClinicPlatelets (Bld) [#/Vol]565 10*3/uLHigh [facility] Butler HospitalPlatelets Estimate (Bld) [#/Vol]IncreasedCleGlenbeigh HospitalRBC (Bld) [#/Vol]2.75 10*6/uLLow4.20 - 6.00 m/uLTrihealth Bethesda Butler HospitalRBC FragmentsFew AbnormalNone SeenTrihealth Bethesda Butler HospitalRed Cell MorphReviewed: see results of individual morphologiesCleveland ClinicWBC (Bld) [#/Vol]4.38 10*3/[facility] Left Shift Ql (Bld)[facility] Memorial HospitalThis is an appended report. These results have been appended to a previously verified report.[facility] MAGNESIUM SERPL-MCNCon 86-34-9047Dqmgkxhz Type: BLOOD SPECIMEN Ordering Facility: [facility] Address: [address] [place] [address] Original Ordering Provider: SUZE RENAE NT-PROBNP SERPL-MCNCon 07-18-3501Khzusrcvzik peptide B (Bld) [Mass/Vol]480 pg/mLHighNINF - 125 pg/mL [facility] SpringsSpecimen Type: BLOOD SPECIMEN Ordering Facility: [facility] Address: [address] [place] [address] Original Ordering Provider: JONAS CHATMAN RENAL FUNC 2000 PNL SERPLon 89-94-0596[facility] PHOSPHATE SERPL-MCNC4.2 mg/dL2.7 - 4.8 mg/dLSaint Mary's Hospital of Blue SpringsEGFRCR SERPLBLD CKD-EPI 199295- PINFNONevada Regional Medical CenterComment on above: Estimated Glomerular Filtration Rate (eGFR) [...] actual GFR.Specimen Type: BLOOD SPECIMEN Ordering Facility: [facility] Address: [address] [place] [address] Original Ordering Provider: CAMILA MARIOERRITINon 60-96-1217Ulriexty [Mass/Vol]5826 ng/lRTscb99.3 - 565.7 ng/mLCleveland ClinicFOLATE, SERUMon 66-20-6763Tojsxe [Mass/Vol]9.2 ng/mL4.7 - PINF ng/mLCleveland ClinicFerritin [Mass/Vol]on 58-35-6611Zedmsacwqxvgsp and review of laboratory resultsAbnormal Barth ClinicCleveland ClinicIron and Iron binding capacity panelon 23-79-4571Ohysheiexquind and review of laboratory resultsAbnormalCleveland ClinicIron [Mass/Vol]28 ug/dLLow41 - 186 ug/dLCletrihealth ClinicIron binding capacity [Mass/Vol]74 ug/aNGnb510 - 386 ug/dLTrihealth Bethesda Butler HospitalIron/TIBC [Molar ratio]37.8 %20.0 - 55.0 %[facility] HospitalLaboratory - Chemistry and Chemistry - challengeon 43-94-5642Bqesuxl [Mass/Vol]2.6 g/dLLow3.9 - 4.9 g/dLNOMS HealthcareAnion gap [Moles/Vol]11 mmol/L8 - 15 mmol/LNOMS Healthcare Calcium [Mass/Vol]8.5 mg/dL8.5 - 10.2 mg/dLNOMS HealthcareChloride [Moles/Vol] 100 mmol/L98 - 107 mmol/LNOMS HealthcareCO2 [Moles/Vol]26 mmol/L22 - 30 mmol/L NOMS HealthcareCreatinine [Mass/Vol]0.88 mg/dL0.73 - 1.22 mg/dLNOMS Healthcare Glucose [Mass/Vol]101 mg/mVQson62 - 99 mg/dLNOMS HealthcareComment on above:The [place] Diabetes Association (ADA) provides guidance for cutoff [...] Standards of Medical Care in Diabetes 2016, [place] Diabetes Association. Diabetes Care. 2016.39(Suppl 1). Magnesium [Mass/Vol]1.8 mg/dL1.7 - 2.3 mg/dLNOMS HealthcarePotassium [Moles/Vol] 5 mmol/L3.7 - 5.1 mmol/LNOMS HealthcareSodium [Moles/Vol]137 mmol/L136 - 144 mmol/LNOMS HealthcareUrea nitrogen [Mass/Vol]7 mg/dLLow9 - 24 mg/dLNOMS HealthcareMagnesium [Mass/Vol]on 89-09-9339Edsrxnsbnrisns and review of laboratory resultsNormalCleveland ClinicNT PRO BNPon 11-16-1079Iqhkjeurjig peptide.B prohormone N-Terminal [Mass/Vol]480 pg/mLHighNINF - 125 pg/mLCleveland ClinicNo Panel Informationon 26-80-2814Ttyrygxtjugtmg and review of laboratory resultsNormalCleveland [facility] ClinicInterpretation and review of laboratory resultsAbnormalNONevada Regional Medical CenterNOWV HealthcareRenal function 2000 panelon 09-74-9168QQK/1.73 sq M.predicted among non-blacks MDRD (S/P/Bld) [Vol [...] reflect actual GFR.Phosphate [Mass/Vol]4.2 mg/dL2.7 - 4.8 mg/dLTrihealth Bethesda Butler HospitalVITAMIN B12on 91-64-0407Imbylzgqa (Vitamin B12) [Mass/Vol] 878 pg/mL232 - 1245 pg/mLCleveland Lakes Medical CenterC-REACTIVE PROTEINon 87-46-9473QCP [Mass/Vol]23.3 mg/dLHighNINF - 0.9 mg/dLLima Memorial Hospital W Auto Differential panel (Bld)on 34-38-4136Ayjrszrbcrar Ql (Bld)PresentTrihealth Bethesda Butler HospitalBasophils (Bld) [#/Vol]0 10*3/uLNINFGodwin ClinicBasophils/100 WBC (Bld)0 %[facility] HospitalDifferential cell count method Nom (Bld)ManualCletrihealth ClinicEosinophils (Bld) [#/Vol]0.05 10*3/uLNINFTrihealth Bethesda Butler HospitalEosinophils/100 WBC (Bld)1 % [facility] HospitalErythrocyte distribution width (RBC) [Ratio]17.3 %High11.5 - 15.0 %[facility] HospitalHematocrit (Bld) [Volume fraction]25.1 %Low39.0 - 51.0 % [facility] HospitalHemoglobin (Bld) [Mass/Vol]7.9 g/dLLow13.0 - 17.0 g/dLTrihealth Bethesda Butler HospitalInterpretation and review of laboratory resultsAbnormalCMercy Health West Hospital Lymphocytes (Bld) [#/Vol]0.2 10*3/uLLowTrihealth Bethesda Butler HospitalLymphocytes/100 WBC (Bld) 4 %[facility] HospitalMCH (RBC) [Entitic mass]30.3 pg26.0 - 34.0 pgCMercy Health West Hospital MCHC (RBC) [Mass/Vol]31.5 g/dL30.5 - 36.0 g/dLTrihealth Bethesda Butler HospitalMCV (RBC) [Entitic vol]96.2 fL80.0 - 100.0 fLCMercy Health West HospitalMonocytes (Bld) [#/Vol]0.05 10*3/uL NINOhioHealthMonocytes/100 WBC (Bld)1 %[facility] HospitalNeutrophils (Bld) [#/Vol]4.73 10*3/uLTrihealth Bethesda Butler HospitalNeutrophils/100 WBC (Bld)94 %[facility] Nucleated RBC (Bld) [#/Vol]NINFCMercy Health West HospitalNucleated RBC/100 WBC (Bld) [Ratio]0 %/100 WBCTrihealth Bethesda Butler HospitalOvalocytes LM Ql (Bld)FewTrihealth Bethesda Butler Hospital Platelet mean volume (Bld) [Entitic vol]9.3 fL9.0 - 12.7 [facility] Platelets (Bld) [#/Vol]526 10*3/uLHighTrihealth Bethesda Butler HospitalPlatelets Estimate (Bld) [#/Vol]IncreasedTrihealth Bethesda Butler HospitalRBC (Bld) [#/Vol]2.61 10*6/uLLow4.20 - 6.00 m/uL [facility] HospitalRed Cell MorphReviewed: see results of individual morphologies [facility] HospitalWBC (Bld) [#/Vol]5.03 10*3/uLTrihealth Bethesda Butler HospitalThis is an appended report. These results have been appended to a previously verified report. [facility] Community HospitalCCF PHOSPHATE SERPL-MCNCon 20-09-7079DTN PHOSPHATE SERPL-MCNC4.1 mg/dL2.7 - 4.8 mg/dLSaint Mary's Hospital of Blue SpringsSpecimen Type: BLOOD SPECIMEN Ordering Facility: [facility] Address: [address] [place] [address] Original Ordering Provider: DAVID MYERSISYNCComprehensive metabolic 2000 panelon 13-44-2150Asafimd [Mass/Vol]2.4 g/dLLow3.9 - 4.9 g/dLGodwin ClinicALP [Catalytic activity/Vol]158 U/LHigh38 - 113 U/LCleveland ClinicALT [Catalytic activity/Vol]8 U/LLow10 - 54 U/LCleveland ClinicAnion gap [Moles/Vol]12 mmol/L8 - 15 mmol/LCleveland ClinicAST [Catalytic activity/Vol]16 U/L14 - 40 U/L [facility] HospitalBilirubin [Mass/Vol]0.3 mg/dL0.2 - 1.3 mg/dLTrihealth Bethesda Butler Hospital Calcium [Mass/Vol]8.1 mg/dLLow8.5 - 10.2 mg/dLGodwin ClinicChloride [Moles/Vol]102 mmol/L98 - 107 mmol/LCleveland ClinicCO2 [Moles/Vol]22 mmol/L22 - 30 mmol/LCleveland ClinicCreatinine [Mass/Vol]0.82 mg/dL0.73 - 1.22 mg/dL Godwin ClinicGFR/1.73 sq M.predicted among non-blacks MDRD (S/P/Bld) [...] reflect actual GFR.Glucose [Mass/Vol]82 mg/dL74 - 99 mg/dLCletrihealth ClinicComment on above:The [place] Diabetes Association (ADA) provides guidance for cutoff [...] Standards of Medical Care in Diabetes 2016, [place] Diabetes Association. Diabetes Care. 2016.39(Suppl 1). Potassium [Moles/Vol]5.1 mmol/L3.7 - 5.1 mmol/LCleveland ClinicProtein [Mass/Vol]5 g/dLLow6.3 - 8.0 g/dLGodwin ClinicSodium [Moles/Vol]136 mmol/L136 - 144 mmol/LCleveland ClinicUrea nitrogen [Mass/Vol]8 mg/dLLow9 - 24 mg/dL [facility] HospitalGGTon 40-99-4704Cizjn glutamyl transferase [Catalytic activity/Vol]111 U/LHigh10 - 70 U/LCleveland ClinicGamma glutamyl transferase [Catalytic activity/Vol]on 54-70-2253Bejgwbckqnkybf and review of laboratory resultsAbnormalCleveland [facility] ClinicMAGNESIUMon 18-05-9838Hyrwkcpcb [Mass/Vol]1.6 mg/dLLow1.7 - 2.3 mg/dLTrihealth Bethesda Butler HospitalNT PRO BNPon 10-31-2024 Natriuretic peptide.B prohormone N-Terminal [Mass/Vol]462 pg/mLHighNINF - 125 pg/mLCleveland ClinicNatriuretic peptide.B prohormone N-Terminal [Mass/Vol]on 94-77-0954Kinejbuumnnbaw and review of laboratory resultsAbnormalCMagruder HospitalNo Panel Informationon 18-76-9485Wkhjutloxtgyzl and review of laboratory resultsAbnormalCACMC Healthcare System Glen[facility]igh PHOSPHORUS INORGANICon 63-71-9761Tsewagksl [Mass/Vol]4.1 mg/dL2.7 - 4.8 mg/dL Barth ClinicPhosphate [Mass/Vol]on 08-60-1094Cuatkclgrgmsyr and review of laboratory resultsNormalCleveland ClinicTACROLIMUS/FK-506 BLOrdered By: Pascual Adler on 14-15-2179Jjvofiecck (Bld) [Mass/Vol]3.5 ng/mLLow5.0 - 20.0 ng/mLCleveland ClinicComment [...] situation. Test performed by chemiluminescent immunoassay using KupiBonus Alinity i.Tacrolimus (Bld) [Mass/Vol]Ordered By: Pascual Adler on 92-51-6583Ionkzzyuttljjt and review of laboratory resultsAbnormalCtrumbull regional medical centerand [facility] 10-17-2024 Echocardiography Report: Transthoracic Echo [facility] Bedside Date of service: 10/17/2024 11:11:17 AM 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 Ordering physician: BRANDI BECKETT Exam indication: [...] * * * Final * * * [employer] : [id number]^[employer]^SI^SUIDCC Radiology, Radiologist, - 10/17/2024 Echocardiography Report: Transthoracic Echo [facility] [place] Bedside Date of service: 10/17/2024 11:11:17 AM 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 Ordering physician: BRANDI BECKETT Exam indication: [...] * * * Final * * * [employer] : [id number]^SyngoDynamics^SI^CELESTE ID [facility] SpringsRadiology Study observation (narrative)[facility] SpringsECHOOrdered By: Radiologist Radiology on 23-61-1736NIYTSaint Mary's Hospital of Blue Springs Work Phone: cCF O+P SPEC MICROon 45-25-4104AGT O+P SPEC MICRO OVA AND PARASITE EXAM: No Parasites Seen [facility] SpringsOriginal Ordering Provider: BRANDI Syed [facility] CYTOLOGY NON-GYNon 92-77-0881HZ DISCLAIMERNONevada Regional Medical CenterComment on above: Laboratory Developed Test (LDT) Disclaimer: Performance characteristics of immunohistochemical, immunofluorescent, and chromogenic in-situ hybridization tests have been determined by the performing laboratory within [facility]'s [facility] Pathology and Laboratory Medicine Department ([facility], [facility], [facility], [facility], [facility], [facility], or [facility]) in a manner consistent with CLIA requirements. One or more of these tests may not have been cleared or approved by the FDA. [employer] is regulated under CLIA as qualified to perform high- complexity testing. These tests are used for clinical purposes. These should not be regarded asinvestigational or for research. Positive and negative controls stain appropriately. [facility] CASE REPORTNONevada Regional Medical CenterComment on above:Medical Cytology Report Case: [id number] Authorizing Provider: Nilay Villatoro MD Collected: 10/14/2024 03:31 PM Ordering Location: [place] [address] Received: 10/14/2024 06:22 PM Pathologist: Belén Green [...] FINAL PERFORMING LABNOMS HealthcareComment on above:Technical component, fisher hoop net screening performed at: [facility], [address] [place] [address] CLIA: [id number] Diagnostic interpretation performed at: [facility], [address] [place] [address] CLIA# [id number] Catering Chef: Emmett New MD [facility] GROSS DESCRIPTIONNOMS HealthcareComment on above:A. Pleural Cavity, Left 60 cc cloudy kaylie fluid with material. ThinPrep and Cell Block prepared. C[facility] ORDER COMMENTNOMS HealthcareComment on above:Pre-op diagnosis: Pleural effusion [J90] Specimen Type: SPECIMEN FROM PLEURA OBTAINED BY THORACENTESIS Ordering Facility: [facility] Address: [address] [place] [address] Original Ordering Provider: NILAY MONCADA HealthcareCCF RESP PATH 12B PNL SPEC JESSICA+PROBEon 67-79-4500EFM RESP PATH 12B PNL SPEC JESSICA+PROBE INFLUENZA A RNA: Not detected AbnormalNOMS HealthcareCCF RESP PATH 12B PNL SPEC JESSICA+PROBE INFLUENZA B RNA: Not detected AbnormalNOMS HealthcareCCF [...] HealthcareInterpretation and review of laboratory resultsAbnormal NOMS SifbugamdtDLCS-UcW-9 (COVID-19) RNA JESSICA+probe Ql (Unsp spec) SARS-COV-2 (AGENT OF COVID-19) RNA: Not detected AbnormalNOMS HealthcareOriginal Ordering Provider: BRANDI CANDELARIOCIMARRON MEMORIAL [facility] HealthcareC-REACTIVE PROTEINon 04-90-6364FMP [Mass/Vol]22.3 mg/dLHighNINF - 0.9 mg/dLLima Memorial Hospital W Auto Differential panel (Bld)on 62-21-7960Hsihvixnr (Bld) [#/Vol]0.04 10*3/uLNINFCleGlenbeigh HospitalDifferential cell count method Nom (Bld)AutoCleveland ClinicEosinophils (Bld) [#/Vol]0.36 10*3/uLNIOhioHealth Van Wert HospitalImmature granulocytes (Bld) [#/Vol]0.13 10*3/uLHighKindred Healthcare Immature granulocytes/100 WBC (Bld)1.4 %[facility] HospitalLymphocytes (Bld) [#/Vol]0.26 10*3/uLLowGodwin ClinicMonocytes (Bld) [#/Vol]1.34 10*3/uLHigh NINFCleveland ClinicNeutrophils (Bld) [#/Vol]7.15 10*3/uLTrihealth Bethesda Butler Hospital Nucleated RBC (Bld) [#/Vol]NINFCleveland ClinicNucleated RBC/100 WBC (Bld) [Ratio]0 %/100 WBCTrihealth Bethesda Butler HospitalPlatelet mean volume (Bld) [Entitic vol]9.1 fL 9.0 - 12.7 fLCleveland ClinicPlatelets (Bld) [#/Vol]503 10*3/uLUniversity Hospitals Elyria Medical CenterWBC (Bld) [#/Vol]9.28 10*3/uLTrihealth Bethesda Butler HospitalCCF CBC W AUTO DIFF BLDon 17-05-6138FOV BASOPHILS # BLD AUTO0.04NISaint [facility] DIFFERENTIAL METHOD BLDAutoNOMS [facility] EOSINOPHIL # BLD AUTO0.36NISaint [facility] LYMPHOCYTES # BLD AUTO0.26LowKansas City VA Medical Center MONOCYTES # BLD AUTO1.34HighNIPeninsula Hospital, [place], operated by Covenant HealthF NEUTROPHILS # BLD AUTO7.15NOMS Mercy HealthF NRBC # BLD AUTO <0.01NISaint [facility] NRBC/100 WBC BLD-RTO0/100 WBCKansas City VA Medical Center PLATELET # BLD XHOD163BxihSOTLGeisinger [facility] PMV BLD AUTO9.1 fL9.0 - 12.7 fLKansas City VA Medical Center WBC # BLD AUTO9.28[facility] GRANULOCYTES # BLD AUTO0.13 HighNIJamestown Regional Medical Center GRANULOCYTES/LEUK NFR BLD AUTO1.4 %[facility] Specimen Type: BLOOD SPECIMEN Ordering Facility: [facility] Address: [address] [place] [address] Original Ordering Provider: DAVID RENE ABD/PEL WO IVCONon 10-07-2024* * *Final Report* * * DATE OF EXAM: Oct 07 2024 3:00PM [facility] 0531 - CT ABD/PEL WO IVCON / [...] on 10/07/2024 3:54 PM via verbal communication. Behavioral Science Chair: SRINI Transcribe Date/Time: Oct 07 2024 3:17P Dictated by : JOSE GUADALUPE VÁZQUEZ MD This examination was interpreted and the report reviewed and electronically signed by: JOSE GUADALUPE VÁZQUEZ MD on Oct 07 2024 4:01PM EST [id number]^AGFA_IDC^SI^ACNCCFRadiology, Radiologist, - 10/07/2024 * * *Final Report* * * DATE OF EXAM: Oct 07 2024 3:00PM [facility] 0531 - CT ABD/PEL WO IVCON / [...] on 10/07/2024 3:54 PM via verbal communication. Behavioral Science Chair: SRINI Transcribe Date/Time: Oct 07 2024 3:17P Dictated by : JOSE GUADALUPE VÁZQUEZ MD This examination was interpreted and the report reviewed and electronically signed by: JOSE GUADALUPE VÁZQUEZ MD on Oct 07 2024 4:01PM EST [id number]^AGFA_IDC^SI^ACN NOMS HealthcareCT ABD/PEL WO IVCON* * *Final Report* * * DATE OF EXAM: Oct 07 2024 3:00PM [facility] 0531 - CT ABD/PEL WO IVCON / [...] on 10/07/2024 3:54 PM via verbal communication. Behavioral Science Chair: SRINI Transcribe Date/Time: Oct 07 2024 3:17P Dictated by : JOSE GUADALUPE VÁZQUEZ MD This examination was interpreted and the report reviewed and electronically signed by: JOSE GUADALUPE VÁZQUEZ MD on Oct 07 2024 4:01PM EST [id number] HospitalDE ABD/PEL WO IVCONOrdered By: Radiologist Radiology on 83-75-3256TFTM [employer] Work Phone: cT BRAIN WO IVCONon 10-07-2024* * *Final Report* * * DATE OF EXAM: Oct 07 2024 3:00PM [facility] 0504 - CT BRAIN WO IVCON / [...] PROCESS. NO SIGNIFICANT INTERVAL CHANGE SINCE 08/27/2024. Behavioral Science Chair: SRINI Transcribe Date/Time: Oct 07 2024 3:20P Dictated by : ROSAURA CERVANTES MD This examination was interpreted and the report reviewed and electronically signed by: ROSAURA CERVANTES MD on Oct 07 2024 3:22PM EST [id number]^AGFA_IDC^SI^ACNCCFRadiology, Radiologist, - 10/07/2024 * * *Final Report* * * DATE OF EXAM: Oct 07 2024 3:00PM [facility] 0504 - CT BRAIN WO IVCON / [...] PROCESS. NO SIGNIFICANT INTERVAL CHANGE SINCE 08/27/2024. Behavioral Science Chair: SRINI Transcribe Date/Time: Oct 07 2024 3:20P Dictated by : ROSAURA CERVNATES MD This examination was interpreted and the report reviewed and electronically signed by: ROSAURA CERVANTES MD on Oct 07 2024 3:22PM EST [id number]^AGFA_IDC^SI^ACN NOMS HealthcareCT BRAIN WO IVCON* * *Final Report* * * DATE OF EXAM: Oct 07 2024 3:00PM [facility] 0504 - CT BRAIN WO IVCON / [...] PROCESS. NO SIGNIFICANT INTERVAL CHANGE SINCE 08/27/2024. Behavioral Science Chair: SRINI Transcribe Date/Time: Oct 07 2024 3:20P Dictated by : ROSAURA CERVANTES MD This examination was interpreted and the report reviewed and electronically signed by: ROSAURA CERVANTES MD on Oct 07 2024 3:22PM EST [id number] HospitalCT Head WO contraston 10-07-2024 IMPRESSION: NO CT EVIDENCE OF ACUTE INTRACRANIAL PROCESS. NO SIGNIFICANT INTERVAL CHANGE SINCE 08/27/2024. Behavioral Science Chair: SRINI Transcribe Date/Time: Oct 07 2024 3:20P Dictated by : ROSAURA CERVANTES MD This examination was interpreted and the report reviewed and electronically signed by: ROSAURA CERVANTES MD on Oct 07 2024 3:22PM EST [facility]* * *Final Report* * * DATE OF EXAM: Oct 07 2024 3:00PM [facility] 0504 - CT BRAIN WO IVCON / [...] are unremarkable. Localizer images: No additional findings. [facility]YProvider, [facility] [place] - 10/07/2024 * * *Final Report* * * DATE OF EXAM: Oct 07 2024 3:00PM [facility] 0504 - CT BRAIN WO IVCON / [...] PROCESS. NO SIGNIFICANT INTERVAL CHANGE SINCE 08/27/2024. Behavioral Science Chair: [facility] Transcribe Date/Time: Oct 07 2024 3:20P Dictated by : ROSAURA CERVANTES MD This examination was interpreted and the report reviewed and electronically signed by: ROSAURA CERVANTES MD on Oct 07 2024 3:22PM EST [facility] HospitalCYTOMEGALOVIRUS (CMV) DNA, QUANTITATIVE PCR, PLASMAon 10-07-2024 CMV DNA JESSICA+probe [#/Vol]82HighTrihealth Bethesda Butler HospitalCMV DNA JESSICA+probe [Log #/Vol]1.91 [facility] HospitalV DNA JESSICA+probe Qn (P)DetectedAbnormalNot DetectedTrihealth Bethesda Butler HospitalInterpretation and review of laboratory resultsAbnoalCMercy Health West Hospital sav CMV is an in vitro nucleic acid amplification test for the quantitation of cytomegalovirus (CMV) DNA in human EDTA plasma. The linear range of the assay is 34.5 to 10,000,000 IU/mL (1.54 - 7.00log IU/mL). The lower limit of detection of the assay is 34.5 IU/mL.[facility]UM[facility] Community HospitalComprehensive metabolic 2000 panelon 77-84-1744Ejgfhfn [Mass/Vol]2.3 g/dLLow3.9 - 4.9 g/dLCleveland ClinicALP [Catalytic activity/Vol]215 U/LHigh38 - 113 U/LCleveland ClinicALT [Catalytic activity/Vol]15 U/L10 - 54 U/LCleveland ClinicAnion gap [Moles/Vol]15 mmol/L8 - 15 mmol/LCleveland ClinicAST [Catalytic activity/Vol]22 U/L14 - 40 U/LCleveland ClinicBilirubin [Mass/Vol]0.2 mg/dL0.2 - 1.3 mg/dLCletrihealth Clinic Calcium [Mass/Vol]8 mg/dLLow8.5 - 10.2 mg/dLCletrihealth ClinicChloride [Moles/Vol] 101 mmol/L98 - 107 mmol/LCleveland ClinicCO2 [Moles/Vol]19 mmol/LLow22 - 30 mmol/LCleveland ClinicCreatinine [Mass/Vol]1.09 mg/dL0.73 - 1.22 mg/dLGodwin ClinicGFR/1.73 sq M.predicted among non-blacks MDRD (S/P/Bld) [Vol rate/Area]73 mL/min/{1.73_m2}- PINFCMercy Health West HospitalComment on above:Estimated Glomerular Filtration Rate (eGFR) [...] actual GFR.Glucose [Mass/Vol]97 mg/dL74 - 99 mg/dL [facility] on above:The [place] Diabetes Association (ADA) provides guidance for cutoff [...] Standards of Medical Care in Diabetes 2016, [place] Diabetes Association. Diabetes Care. 2016.39(Suppl 1). Potassium [Moles/Vol]4.9 mmol/L3.7 - 5.1 mmol/LCleveland ClinicProtein [Mass/Vol]4.7 g/dLLow6.3 - 8.0 g/dLLouis Stokes Cleveland VA Medical Centerodium [Moles/Vol]135 mmol/L Rvq392 - 144 mmol/LCleveland ClinicUrea nitrogen [Mass/Vol]9 mg/dL9 - 24 mg/dL [facility] HospitalGGTon 83-95-5881Jfesq glutamyl transferase [Catalytic activity/Vol]106 U/LHigh10 - 70 U/LCleveland ClinicGamma glutamyl transferase [Catalytic activity/Vol]on 26-75-4184Skqdqhhqnqtemr and review of laboratory resultsAbnormalCtrumbull regional medical centerand [facility] HamiltonLaboratory - Hematology and Cell countson 28-53-7346Pffdlgshx/100 WBC (Bld)0.4 %[facility] HealthcareEosinophils/100 WBC (Bld)3.9 %[facility] SpringsErythrocyte distribution width (RBC) [Ratio]16 % High11.5 - 15.0 %[facility] SpringsHematocrit (Bld) [Volume fraction]22.1 %Low39.0 - 51.0 %[facility] SpringsHemoglobin (Bld) [Mass/Vol]7.2 g/dLLow13.0 - 17.0 g/dL [facility] SpringsLymphocytes/100 WBC (Bld)2.8 %[facility] Blue SpringsMCH (RBC) [Entitic mass]30.9 pg26.0 - 34.0 pgSaint John's Aurora Community HospitalHC (RBC) [Mass/Vol]32.6 g/dL30.5 - 36.0 g/dLSaint Mary's Hospital of Blue SpringsMCV (RBC) [Entitic vol]94.8 fL80.0 - 100.0 fLSaint Mary's Hospital of Blue SpringsMonocytes/100 WBC (Bld)14.4 %[facility] SpringsNeutrophils/100 WBC (Bld) 77.1 %[facility] SpringsRBC (Bld) [#/Vol]2.33 10*6/uLLow4.20 - 6.00 m/uLOREM COMM[facility]ITY [facility]ITAL HealthcareMAGNESIUMon 28-31-7218Dmilgysld [Mass/Vol]1.7 mg/dL1.7 - 2.3 mg/dL Barth ClinicMagnesium [Mass/Vol]on 76-87-8799Hofshghqzvfhcf and review of laboratory resultsNormalCleveland ClinicNT PRO BNPon 51-96-9429Hayvqpkbkrj peptide.B prohormone N-Terminal [Mass/Vol]533 pg/mLHighNINF - 125 pg/mLCleveland ClinicNatriuretic peptide.B prohormone N-Terminal [Mass/Vol]on 10-07-2024 Interpretation and review of laboratory resultsAbnoFrye Regional Medical Centerand [facility] Health HamiltonNo Panel InformationOrdered By: Radiologist Radiology on 69-60-1634QGMK [employer] Work Phone: No Panel Informationon 29-63-7653Lgojqmplsouucc and review of laboratory resultsAbWVUMedicine Harrison Community Hospital Interpretation and review of laboratory resultsAbUniversity of Michigan Health HealthcareRadiology Study observation (narrative)NOMS HealthcareTACROLIMUS/FK- 506 BLOrdered By: Sabrina Bishop on 67-11-2234Tjotoermlr (Bld) [Mass/Vol]6.6 ng/mL5.0 - 20.0 ng/mLCleveland ClinicComment [...] using Lakhani Alinity i.Tacrolimus (Bld) [Mass/Vol]Ordered By: aSbrina Bishop on 10-07-2024 Interpretation and review of laboratory resultsNormalCtrumbull regional medical centerand [facility] W Auto Differential panel (Bld)on 09-34-0672Kwdbqzosc (Bld) [#/Vol] 0.03 10*3/uLNINFTrihealth Bethesda Butler HospitalDifferential cell count method Nom (Bld)Auto [facility] HospitalEosinophils (Bld) [#/Vol]0.42 10*3/uLNIOhioHealth Van Wert Hospital Immature granulocytes (Bld) [#/Vol]0.09 10*3/uLNIOhioHealth Van Wert HospitalImmature granulocytes/100 WBC (Bld)1 %[facility] HospitalLymphocytes (Bld) [#/Vol]0.33 10*3/uLLowGodwin ClinicMonocytes (Bld) [#/Vol]1.26 10*3/uLHighNINFGodwin ClinicNeutrophils (Bld) [#/Vol]6.83 10*3/uLTrihealth Bethesda Butler HospitalNucleated RBC (Bld) [#/Vol]NINFCMercy Health West HospitalNucleated RBC/100 WBC (Bld) [Ratio]0 %/100 WBC Godwin ClinicPlatelet mean volume (Bld) [Entitic vol]9.1 fL9.0 - 12.7 fL Godwin ClinicPlatelets (Bld) [#/Vol]482 10*3/uLHighTrihealth Bethesda Butler HospitalWBC (Bld) [#/Vol]8.96 10*3/uLTrihealth Bethesda Butler HospitalCCF CBC W AUTO DIFF BLDon [id number] BASOPHILS # BLD AUTO0.03[facility]IS[facility] DIFFERENTIAL METHOD BLDAutoNOMS [facility] EOSINOPHIL # BLD AUTO0.42[facility]IS[facility] LYMPHOCYTES # BLD AUTO0.33[facility] MONOCYTES # BLD AUTO1.26HighNISaint [facility] - [facility] NEUTROPHILS # BLD AUTO6.83[facility] NRBC # BLD AUTO<0.01NIS[facility] NRBC/100 WBC BLD-RTO0/100 WBCKansas City [facility] Medical Center PLATELET # BLD [id number] City VA Medical Center PMV BLD AUTO9.1 fL9.0 - 12.7 fLKansas [facility] Center WBC # BLD AUTO8.96[facility] GRANULOCYTES # BLD AUTO0.09NIJamestown Regional Medical Center GRANULOCYTES/LEUK NFR BLD AUTO1 %NOMS HealthcareSpecimen Type: BLOOD SPECIMEN Ordering Facility: [facility] Address: [address] [place] [address] Original Ordering Provider: SUZE Almanzaroratory - Hematology and Cell countson 05-13-4833Rzdynqpyi/100 WBC (Bld)0.3 %[facility] Eosinophils/100 WBC (Bld)4.7 %NOMS HealthcareErythrocyte distribution width (RBC) [Ratio]16 %High11.5 - 15.0 %[facility] SpringsHematocrit (Bld) [Volume fraction]21.7 %Low39.0 - 51.0 %[facility] SpringsHemoglobin (Bld) [Mass/Vol]7 g/dL Low13.0 - 17.0 g/dLSaint Mary's Hospital of Blue SpringsLymphocytes/100 WBC (Bld)3.7 %[facility] MCH (RBC) [Entitic mass]31.1 pg26.0 - 34.0 pgSaint Mary's Hospital of Blue SpringsMCHC (RBC) [Mass/Vol]32.3 g/dL30.5 - 36.0 g/dLSaint Mary's Hospital of Blue SpringsMCV (RBC) [Entitic vol]96.4 fL 80.0 - 100.0 fLSaint Mary's Hospital of Blue SpringsMonocytes/100 WBC (Bld)14.1 %[facility] Neutrophils/100 WBC (Bld)76.2 %[facility] SpringsRBC (Bld) [#/Vol]2.25 10*6/uLLow 4.20 - 6.00 m/uLSaint Mary's Hospital of Blue SpringsNo Panel Informationon 64-68-8386Jkgzquspftdhsh and review of laboratory resultsAbnoAurora Valley View Medical Center B-HYDROXYBUTYRATEon 26-64-9653Udtd hydroxybutyrate [Moles/Vol]0.2 mmol/LNINF - 0.28 mmol/LCleveland ClinicInterpretation and review of laboratory resultsNormal [facility] W Auto Differential panel (Bld)on 67-01-1265Jndiiqvnv (Bld) [#/Vol]0.03 10*3/NIOhioHealth Van Wert HospitalDifferential cell count method Nom (Bld) AutoCleveland ClinicEosinophils (Bld) [#/Vol]0.33 10*3/uLNIOhioHealth Van Wert Hospital Immature granulocytes (Bld) [#/Vol]0.07 10*3/[facility] HospitalImmature granulocytes/100 WBC (Bld)0.6 %[facility] HospitalLymphocytes (Bld) [#/Vol]0.29 10*3/uLLowGodwin ClinicMonocytes (Bld) [#/Vol]1.53 10*3/uLHighNINFCleveland ClinicNeutrophils (Bld) [#/Vol]8.81 10*3/uLHighGodwin ClinicNucleated RBC (Bld) [#/Vol]NINFCleveland ClinicNucleated RBC/100 WBC (Bld) [Ratio]0 %/100 WBC Godwin ClinicPlatelet mean volume (Bld) [Entitic vol]9 fL9.0 - 12.7 fL Godwin ClinicPlatelets (Bld) [#/Vol]481 10*3/uLUniversity Hospitals Elyria Medical CenterWBC (Bld) [#/Vol]11.06 10*3/uLUniversity Hospitals Elyria Medical CenterCCF CBC W AUTO DIFF BLDon 13-83-4083EJX BASOPHILS # BLD AUTO0.03[facility] DIFFERENTIAL METHOD BLDAutoNOMS Mercy HealthF EOSINOPHIL # BLD AUTO0.33NIJefferson Memorial HospitalF LYMPHOCYTES # BLD AUTO0.29[facility] MONOCYTES # BLD AUTO1.53HighNIJefferson Memorial HospitalF NEUTROPHILS # BLD AUTO8.81[facility] HealthcareF NRBC # BLD AUTO<0.01[facility]IS[facility] NRBC/100 WBC BLD-RTO0/100 WBCKansas City VA Medical Center PLATELET # BLD [id number] [facility]compass [facility] Rehabilitation Hospital PMV BLD AUTO9 fL9.0 - 12.7 fLHermann Area District HospitalF WBC # BLD AUTO11.06[facility] GRANULOCYTES # BLD AUTO0.07NIJamestown Regional Medical Center GRANULOCYTES/LEUK NFR BLD AUTO0.6 %NOMS HealthcareSpecimen Type: BLOOD SPECIMEN Ordering Facility: [facility] Address: [address] [place] [address] Original Ordering Provider: CAMILA ANDERSENaboratory - Hematology and Cell countson 21-19-0570Wfcrzlvjx/100 WBC (Bld)0.3 %[facility] Eosinophils/100 WBC (Bld)3 %NOMS HealthcareErythrocyte distribution width (RBC) [Ratio]15.9 %High11.5 - 15.0 %NOMS HealthcareHematocrit (Bld) [Volume fraction] 21.9 %Low39.0 - 51.0 %[facility]OMS HealthcareHemoglobin (Bld) [Mass/Vol]7.1 g/dLLow13.0 - 17.0 g/dLSaint Mary's Hospital of Blue SpringsLymphocytes/100 WBC (Bld)2.6 %[facility] HospitalH (RBC) [Entitic mass]31 pg26.0 - 34.0 pgSaint John's Aurora Community HospitalHC (RBC) [Mass/Vol]32.4 g/dL 30.5 - 36.0 g/dLSaint John's Aurora Community HospitalV (RBC) [Entitic vol]95.6 fL80.0 - 100.0 fLSaint Mary's Hospital of Blue SpringsMonocytes/100 WBC (Bld)13.8 %[facility] SpringsNeutrophils/100 WBC (Bld) 79.7 %[facility] SpringsRBC (Bld) [#/Vol]2.29 10*6/uLLow4.20 - 6.00 m/uL[facility] HealthcareLactate (Bld) [Moles/Vol]on 59-18-4776Gmvvwbisvlrxsz and review of laboratory resultsAbnormalCleveland ClinicLactate [Moles/Vol]0.4 mmol/LLow0.5 - 2.2 mmol/LCleveland ClinicGodwin ClinicMAGNESIUMon 10-24-4835Wlhdheyxi [Mass/Vol]1.5 mg/dLLow1.7 - 2.3 mg/dLTrihealth Bethesda Butler HospitalNo Panel Informationon 48-48-1454Kntggkwtqtnhkv and review of laboratory resultsAbnormalCleveland [facility] ClinicInterpretation and review of laboratory resultsAbnormal [facility] HealthcareRenal function 2000 panelon 03-38-0423Shaqqmn [Mass/Vol]2.3 g/dLLow3.9 - 4.9 g/dLTrihealth Bethesda Butler HospitalAnion gap [Moles/Vol]11 mmol/L8 - 15 mmol/LCleveland ClinicCalcium [Mass/Vol]7.9 mg/dLLow8.5 - 10.2 mg/dLGodwin ClinicChloride [Moles/Vol]102 mmol/L98 - 107 mmol/LCleveland ClinicCO2 [Moles/Vol]20 mmol/LLow22 - 30 mmol/LCleveland ClinicCreatinine [Mass/Vol]1.11 mg/dL0.73 - 1.22 mg/dLGodwin ClinicGFR/1.73 sq M.predicted among non-blacks MDRD (S/P/Bld) [Vol rate/Area]71 mL/min/{1.73_m2}- PINF [facility] on above:Estimated Glomerular Filtration Rate (eGFR) is calculated using the 2020 CKD-EPI creatinine equation. This equation utilizes serum creatinine, sex, and age as parameters. The creatinine assay has traceable calibration to isotope dilution-mass spectrometry. Refer to KDIGO guidelines for clinical interpretation. In patients with unstable renal function, e.g. those with acute kidney injury, the eGFRmay not accurately reflect actual GFR.Glucose [Mass/Vol]110 mg/tLPizx68 - 99 mg/dLTrinity Health System Twin [facility] on above:The [place] Diabetes Association (ADA) provides guidance for cutoff [...] Standards of Medical Care in Diabetes 2016, [place] [employer] Association. Diabetes Care. 2016.39(Suppl 1). Phosphate [Mass/Vol]3.6 mg/dL2.7 - 4.8 mg/dLTrihealth Bethesda Butler HospitalPotassium [Moles/Vol]4.6 mmol/L3.7 - 5.1 mmol/LCleveland ClinicSodium [Moles/Vol]133 mmol/OZxh498 - 144 mmol/LCleveland ClinicUrea nitrogen [Mass/Vol]9 mg/dL9 - 24 mg/dLWayne Hospital-REACTIVE PROTEINon 64-74-7046SAU [Mass/Vol]24.7 mg/dLHigh NINF - 0.9 mg/dLLima Memorial Hospital W Auto Differential panel (Bld)on 10-03-2024 Basophils (Bld) [#/Vol]0.03 10*3/uLNINFTrihealth Bethesda Butler HospitalDifferential cell count method Nom (Bld)AutoCleveland ClinicEosinophils (Bld) [#/Vol]0.22 10*3/uLNINF [facility] Butler HospitalImmature granulocytes (Bld) [#/Vol]0.21 10*3/uLHighNIOhioHealth Van Wert HospitalImmature granulocytes/100 WBC (Bld)1.9 %[facility] HospitalLymphocytes (Bld) [#/Vol]0.24 10*3/uLLowTrihealth Bethesda Butler HospitalMonocytes (Bld) [#/Vol]1.37 10*3/uLHigh NINFClevelvidant pungo hospital ClinicNeutrophils (Bld) [#/Vol]9.23 10*3/uLHighTrihealth Bethesda Butler Hospital Nucleated RBC (Bld) [#/Vol]NINFCMercy Health West HospitalNucleated RBC/100 WBC (Bld) [Ratio]0 %/100 WBCTrihealth Bethesda Butler HospitalPlatelet mean volume (Bld) [Entitic vol]9.2 fL 9.0 - 12.7 fLCleveland ClinicPlatelets (Bld) [#/Vol]489 10*3/uLUniversity Hospitals Elyria Medical CenterWBC (Bld) [#/Vol]11.3 10*3/uLGrant Hospital CBC W AUTO DIFF BLDon [id number] BASOPHILS # BLD AUTO0.03NIS[facility] DIFFERENTIAL METHOD BLDAutoNOMHawthorn Children's Psychiatric Hospital EOSINOPHIL # BLD AUTO0.22[facility] LYMPHOCYTES # BLD AUTO0.24[facility] MONOCYTES # BLD AUTO1.37High [facility] NEUTROPHILS # BLD AUTO9.23[facility] NRBC # BLD AUTO<0.01NIS[facility] NRBC/100 WBC BLD-RTO0/100 WBCSaint [facility]'s Hospital [facility] Springs CC PLATELET # BLD [id number] [facility]compass [facility] Rehabilitation Hospital PMV BLD AUTO9.2 fL9.0 - 12.7 fL [facility] WBC # BLD AUTO11.3HAscension SE [facility] GRANULOCYTES # BLD AUTO0.21HighNIJamestown Regional Medical Center GRANULOCYTES/LEUK NFR BLD AUTO1.9 %[facility] SpringsSpecimen Type: BLOOD SPECIMEN Ordering Facility: [facility] Address: [address] [place] [address] Original Ordering Provider: DAVID MYERSISYNCComprehensive metabolic 2000 [facility] 60-87-3608Pfbzazb [Mass/Vol]2.5 g/dLLow3.9 - 4.9 g/dLGodwin ClinicALP [Catalytic activity/Vol]188 U/LHigh38 - 113 U/LCleveland ClinicALT [Catalytic activity/Vol]15 U/L10 - 54 U/LCleveland ClinicAnion gap [Moles/Vol]15 mmol/L8 - 15 mmol/LCleveland ClinicAST [Catalytic activity/Vol]17 U/L14 - 40 U/LCleveland ClinicBilirubin [Mass/Vol]0.2 mg/dL0.2 - 1.3 mg/dLGodwin ClinicCalcium [Mass/Vol]8 mg/dLLow8.5 - 10.2 mg/dLGodwin ClinicChloride [Moles/Vol]100 mmol/L98 - 107 mmol/LCleveland ClinicCO2 [Moles/Vol]17 mmol/LLow22 - 30 mmol/L [facility] HospitalCreatinine [Mass/Vol]1.01 mg/dL0.73 - 1.22 mg/dLTrihealth Bethesda Butler Hospital GFR/1.73 sq M.predicted among non-blacks MDRD (S/P/Bld) [Vol rate/Area]80 mL/min/{1.73_m2}- PINFCtrumbull regional medical centerand Lakes Medical CenterComment on above:Estimated Glomerular Filtration Rate [...] actual GFR.Glucose [Mass/Vol]88 mg/dL74 - 99 mg/dL [facility] Butler HospitalComment on above:The [place] Diabetes Association (ADA) provides guidance for cutoff [...] Standards of Medical Care in Diabetes 2016, [place] Diabetes Association. Diabetes Care. 2016.39(Suppl 1). Potassium [Moles/Vol]4.7 mmol/L3.7 - 5.1 mmol/LCleveland ClinicProtein [Mass/Vol]4.7 g/dLLow6.3 - 8.0 g/dLGodwin ClinicSodium [Moles/Vol]132 mmol/L Hbk063 - 144 mmol/LCleveland ClinicUrea nitrogen [Mass/Vol]9 mg/dL9 - 24 mg/dL [facility] HospitalGGTon 45-14-4380Efeam glutamyl transferase [Catalytic activity/Vol]104 U/LHigh10 - 70 U/LCleveland ClinicGamma glutamyl transferase [Catalytic activity/Vol]on 40-29-3224Petrrtmpaqwely and review of laboratory resultsAbnormalCtrumbull regional medical centerand [facility] HamiltonLaboratory - Hematology and Cell countson 69-84-0928Qirvioupg/100 WBC (Bld)0.3 %[facility] SpringsEosinophils/100 WBC (Bld)1.9 %[facility] SpringsErythrocyte distribution width (RBC) [Ratio]15.9 % High11.5 - 15.0 %[facility] SpringsHematocrit (Bld) [Volume fraction]23.3 %Low39.0 - 51.0 %[facility] SpringsHemoglobin (Bld) [Mass/Vol]7.6 g/dLLow13.0 - 17.0 g/dL [facility] SpringsLymphocytes/100 WBC (Bld)2.1 %[facility] HospitalH (RBC) [Entitic mass]31.7 pg26.0 - 34.0 pgSaint John's Aurora Community HospitalHC (RBC) [Mass/Vol]32.6 g/dL30.5 - 36.0 g/dLSaint John's Aurora Community HospitalV (RBC) [Entitic vol]97.1 fL80.0 - 100.0 fLSaint Mary's Hospital of Blue SpringsMonocytes/100 WBC (Bld)12.1 %[facility] SpringsNeutrophils/100 WBC (Bld) 81.7 %[facility] SpringsRBC (Bld) [#/Vol]2.4 10*6/uLLow4.20 - 6.00 m/uLNOMS HealthcareMAGNESIUMon 82-10-0789Tzgyjdgvk [Mass/Vol]1.5 mg/dLLow1.7 - 2.3 mg/dL [facility] HospitalNT PRO BNPon 44-14-8413Ozjktfutcoo peptide.B prohormone N- Terminal [Mass/Vol]502 pg/mLHighNINF - 125 pg/mLCleveland ClinicNatriuretic peptide.B prohormone N-Terminal [Mass/Vol]on 15-30-9748Nvvoqwwwapxjwo and review of laboratory resultsAbnormalCMagruder HospitalNo Panel Informationon 43-19-6000Gjoqjzwgfhyqlv and review of laboratory resultsAbnormal [facility] HospitalInterpretation and review of laboratory results AbnormalMineral Area Regional Medical Center HealthcareTACROLIMUS/FK-506 BLOrdered By: Pascual Adler on 66-24-9686Qgztepncqq (Bld) [Mass/Vol]4.9 ng/mLLow5.0 - 20.0 ng/mLCleveland ClinicComment [...] i.Tacrolimus (Bld) [Mass/Vol]Ordered By: Pascual Adler on 93-33-9104Ceslppkosbpggc and review of laboratory resultsAbnormalCMagruder HospitalCB panel Auto (Bld)on 93-88-6555Pfvgfkxhx RBC (Bld) [#/Vol]NINFCleveland ClinicPlatelet mean volume (Bld) [Entitic vol]9.1 fL9.0 - 12.7 fLCleveland ClinicPlatelets (Bld) [#/Vol]466 10*3/uLUniversity Hospitals Elyria Medical CenterWBC (Bld) [#/Vol]8.23 10*3/uL [facility] CBC PNL BLD AUTOon 83-08-9933KDD NRBC # BLD AUTO<0.01NINF [facility] PLATELET # BLD [id number] City [facility] Center PMV BLD AUTO9.1 fL9.0 - 12.7 fLK[facility] Center WBC # BLD AUTO8.23[facility] SpringsSpecimen Type: BLOOD SPECIMEN Ordering Facility: [facility] Address: [address] [place] [id number] Original Ordering Provider: JONAS CHAVISERRITINon 10-02-2024 Ferritin [Mass/Vol]5605 ng/gYHhep03.3 - 565.7 ng/mLCleveland ClinicFOLATE, SERUM on 52-64-3164Mczviv [Mass/Vol]12.4 ng/mL4.7 - PINF ng/mLCleveland ClinicFerritin [Mass/Vol]on 96-66-1821Szcodoxbqggwwh and review of laboratory resultsAbnormal [facility] ClinicIron and Iron binding capacity panelon 17-83-6787Zbwchtavljrxxv and review of laboratory resultsAbnormalCleveland ClinicIron [Mass/Vol]16 ug/dLLow41 - 186 ug/dLTrihealth Bethesda Butler HospitalIron binding capacity [Mass/Vol]103 ug/dWVcx647 - 386 ug/dLMercy Healthn/TIBC [Molar ratio]15.5 %Low20.0 - 55.0 %[facility]UMed[facility] Community HospitalLaboratory - Hematology and Cell countson 77-36-3874Wrauyprxzoh distribution width (RBC) [Ratio]15.9 %High11.5 - 15.0 %[facility] SpringsHematocrit (Bld) [Volume fraction] 24.3 %Low39.0 - 51.0 %[facility] SpringsHemoglobin (Bld) [Mass/Vol]7.8 g/dLLow13.0 - 17.0 g/dLSaint John's Aurora Community HospitalH (RBC) [Entitic mass]30.8 pg26.0 - 34.0 pgSaint John's Aurora Community HospitalHC (RBC) [Mass/Vol]32.1 g/dL30.5 - 36.0 g/dLSaint John's Aurora Community HospitalV (RBC) [Entitic vol]96 fL80.0 - 100.0 fLSaint Mary's Hospital of Blue SpringsRBC (Bld) [#/Vol]2.53 10*6/uL Low4.20 - 6.00 m/uLNOMS HealthcareNo Panel Informationon 10-02-2024 Interpretation and review of laboratory resultsNormalCleveland Kettering Health HamiltonInterpretation and review of laboratory resultsAbnoCarolina Pines Regional Medical Center HealthcareTACROLIMUS/FK-506 BLOrdered By: Milagros Sosa on 10-02-2024 [...] situation. Test performed by chemiluminescent immunoassay using Pointn[employer] i.Tacrolimus (Bld) [Mass/Vol]Ordered By: Milagros Sosa on 20-41-8943Fhebswvwsqmwse and review of laboratory results NormalWVUMedicine Harrison Community HospitalVITAMIN B12on 00-28-5263Xpcxflaey (Vitamin B12) [Mass/Vol]655 pg/mL232 - 1245 pg/mLCleveland Lakes Medical CenterC-REACTIVE PROTEINon 03-19-6305VZU [Mass/Vol]15.5 mg/dLHighNINF - 0.9 mg/dLTrihealth Bethesda Butler HospitalCBC W Auto Differential panel (Bld)on 13-26-1066Tsbigmeut (Bld) [#/Vol]0.05 10*3/uLNINF [facility] HospitalDifferential cell count method Nom (Bld)AutoCleveland Lakes Medical Center Eosinophils (Bld) [#/Vol]0.18 10*3/uLNINFTrihealth Bethesda Butler HospitalImmature granulocytes (Bld) [#/Vol]0.05 10*3/uLNINFTrihealth Bethesda Butler HospitalImmature granulocytes/100 WBC (Bld) 0.7 %[facility] Butler HospitalLymphocytes (Bld) [#/Vol]0.32 10*3/uLLowTrihealth Bethesda Butler Hospital Monocytes (Bld) [#/Vol]0.85 10*3/uLNINFTrihealth Bethesda Butler HospitalNeutrophils (Bld) [#/Vol] 6.06 10*3/uLCleveland ClinicNucleated RBC (Bld) [#/Vol]NINOhioHealth Nucleated RBC/100 WBC (Bld) [Ratio]0 %/100 WBCTrihealth Bethesda Butler HospitalPlatelet mean volume (Bld) [Entitic vol]9.3 fL9.0 - 12.7 fLCMercy Health West HospitalPlatelets (Bld) [#/Vol]446 10*3/uLUniversity Hospitals Elyria Medical CenterWBC (Bld) [#/Vol]7.51 10*3/uLDunlap Memorial HospitalF CBC W AUTO DIFF BLDon 38-09-9587GPO BASOPHILS # BLD AUTO0.05NIS[facility] DIFFERENTIAL METHOD BLDAutoNOMHawthorn Children's Psychiatric Hospital EOSINOPHIL # BLD AUTO0.18NIS[facility] LYMPHOCYTES # BLD AUTO0.32LowK[facility] MONOCYTES # BLD AUTO0.85NIS[facility] NEUTROPHILS # BLD AUTO6.06[facility] NRBC # BLD AUTO<0.01NIS[facility] NRBC/100 WBC BLD-RTO0 /100 WBCKansas [facility] PLATELET # BLD [id number] [facility]compass [facility] Rehabilitation Hospital PMV BLD AUTO9.3 fL9.0 - 12.7 fLK[facility] Center WBC # BLD AUTO7.51NOMid [facility] GRANULOCYTES # BLD AUTO0.05NIJamestown Regional Medical Center GRANULOCYTES/LEUK NFR BLD AUTO 0.7 %NOMS HealthcareSpecimen Type: BLOOD SPECIMEN Ordering Facility: [facility] Address: [address] [place] [address] Original Ordering Provider: SUZE GAMBLE [Mass/Vol]on 10-01-2024 Interpretation and review of laboratory resultsAbnormalCmount carmel health system ClinicECG 12 leadon 80-51-6589Lyflznknigb Rate : 74 BPM Atrial Rate : 74 BPM P-R Interval : 156 ms QRS Duration : 98 ms Q-T Interval : 420 ms QTC Calculation(Bazett) : 466 ms Calculated P [place] : 39 degrees Calculated R [place] : 64 degrees Calculated T [place] : 33 degrees SINUS RHYTHM WITH PREMATURE ATRIAL COMPLEXES OTHERWISE NORMAL ECG Confirmed by CAMERON OLIVAS, LUKE ([id number]) on 10/01/2024 11:21:21 AM NAME : LOYD BLANDON PID : [id number] : 1955 Gender : Male Race : ORD : [id number] Procedure Date : Sep 08 2024 15:14:27 Edit Date : Oct 01 2024 11:21:25 Diagnosis: SINUS RHYTHM WITH PREMATURE ATRIAL COMPLEXES OTHERWISE NORMAL ECG Confirmed by LUKE BARNES MD ([id number]) on 10/01/2024 11:21:21 AM Test Reason : [...] QTC Calculation(Bazett) : 466 ms Calculated P [place] : 39 degrees Calculated R [place] : 64 degrees Calculated T [place] : 33 degrees SINUS RHYTHM WITH PREMATURE ATRIAL COMPLEXES OTHERWISE NORMAL ECG Confirmed by LUKE BARNES MD ([id number]) on 10/01/2024 11:21:21 AM NAME : LOYD BLANDON PID : [id number] : 1955 Gender : Male Race : ORD : [id number] Procedure Date : Sep 08 2024 15:14:27 Edit Date : Oct 01 2024 11:21:25 Diagnosis: SINUS RHYTHM WITH PREMATURE ATRIAL COMPLEXES OTHERWISE NORMAL ECG Confirmed by LUKE BARNES MD ([id number]) on 10/01/2024 11:21:21 AM Test Reason : [...] QTC Calculation(Bazett) : 450 ms Calculated P [place] : 34 degrees Calculated R [place] : 93 degrees Calculated T [place] : 39 degrees NORMAL SINUS RHYTHM RIGHT AXIS LOW VOLTAGE QRS, CONSIDER PULMONARY DISEASE, PERICARDIAL EFFUSION, OR NORMAL VARIANT BORDERLINE ECG Confirmed by BRAYAN SANTOS MD ([id number]) on 10/01/2024 9:22:14 AM NAME : LOYD BLANDON PID : [id number] : 1955 Gender : Male Race : ORD : [id number] Procedure Date : Aug 27 2024 07:31:02 [...] QTC Calculation(Bazett) : 450 ms Calculated P [place] : 34 degrees Calculated R [place] : 93 degrees Calculated T [place] : 39 degrees NORMAL SINUS RHYTHM RIGHT AXIS LOW VOLTAGE QRS, CONSIDER PULMONARY DISEASE, PERICARDIAL EFFUSION, OR NORMAL VARIANT BORDERLINE ECG Confirmed by BRAYAN SANTOS MD ([id number]) on 10/01/2024 9:22:14 AM NAME : LOYD BLANDON PID : [id number] : 1955 Gender : Male Race : ORD : [id number] Procedure Date : Aug 27 2024 07:31:02 [...] : , Acquired by : ART HARRIS [facility] 12 leadOrdered By: Radiologist Radiology on 74-24-7108[facility] Work Phone: [facility] [employer] Work Phone: Laboratory - Hematology and Cell countson 10-01-2024 Basophils/100 WBC (Bld)0.7 %[facility] SpringsEosinophils/100 WBC (Bld)2.4 %[facility] SpringsErythrocyte distribution width (RBC) [Ratio]16 %High11.5 - 15.0 %[facility] SpringsHematocrit (Bld) [Volume fraction]22.7 %Low39.0 - 51.0 %[facility] SpringsHemoglobin (Bld) [Mass/Vol]7.4 g/dLLow13.0 - 17.0 g/dLSaint Mary's Hospital of [facility] Springs Lymphocytes/100 WBC (Bld)4.3 %[facility] HospitalH (RBC) [Entitic mass]31.2 pg26.0 - 34.0 pgSaint John's Aurora Community HospitalHC (RBC) [Mass/Vol]32.6 g/dL30.5 - 36.0 g/dLSaint John's Aurora Community HospitalV (RBC) [Entitic vol]95.8 fL80.0 - 100.0 fLSaint Mary's Hospital of [facility] Springs Monocytes/100 WBC (Bld)11.3 %[facility] SpringsNeutrophils/100 WBC (Bld)80.6 %[facility] SpringsRBC (Bld) [#/Vol]2.37 10*6/uLLow4.20 - 6.00 m/uLSaint Mary[facility] MAGNESIUMon 07-71-7952Klymdvbqm [Mass/Vol]1.7 mg/dL1.7 - 2.3 mg/dLTrihealth Bethesda Butler HospitalMagnesium [Mass/Vol]on 23-90-8716Maaqrddgvrqfui and review of laboratory resultsNormalCleveland ClinicNo Panel Informationon 18-83-4192Afyeeiiah Clinic Interpretation and review of laboratory resultsAbnormalAtrium HealthC-REACTIVE PROTEINon 97-23-8910AZC [Mass/Vol]17.7 mg/dLHighNINF - 0.9 mg/dLTrihealth Bethesda Butler HospitalCBC W Auto Differential panel (Bld)on 96-50-0235Fvrlelkqt (Bld) [#/Vol]0.06 10*3/uLNINFTrihealth Bethesda Butler HospitalDifferential cell count method Nom (Bld)AutoCleveland ClinicEosinophils (Bld) [#/Vol]0.19 10*3/uLNINFTrihealth Bethesda Butler HospitalImmature granulocytes (Bld) [#/Vol]0.08 10*3/uLKindred Healthcare Immature granulocytes/100 WBC (Bld)1 %Godwin ClinicLymphocytes (Bld) [#/Vol] 0.33 10*3/uLLowGodwin ClinicMonocytes (Bld) [#/Vol]0.87 10*3/uLHighNINF Godwin ClinicNeutrophils (Bld) [#/Vol]6.87 10*3/uLTrihealth Bethesda Butler HospitalNucleated RBC (Bld) [#/Vol]NINFCMercy Health West HospitalNucleated RBC/100 WBC (Bld) [Ratio]0 %/100 WBCGodwin ClinicPlatelet mean volume (Bld) [Entitic vol]9.3 fL9.0 - 12.7 fL Godwin ClinicPlatelets (Bld) [#/Vol]470 10*3/uLHighTrihealth Bethesda Butler HospitalWBC (Bld) [#/Vol]8.4 10*3/uLTrihealth Bethesda Butler HospitalCCF CBC W AUTO DIFF BLDon [id number] BASOPHILS # BLD AUTO0.06NIS[facility] DIFFERENTIAL METHOD BLDAutoNOMS St[facility] EOSINOPHIL # BLD AUTO0.19NIS[facility] LYMPHOCYTES # BLD AUTO0.33[facility] HospitalF MONOCYTES # BLD AUTO0.87HighEmerald-Hodgson HospitalF NEUTROPHILS # BLD AUTO6.87[facility] NRBC # BLD AUTO<0.01[facility]IS[facility] NRBC/100 WBC BLD-RTO0/100 WBCKansas [facility] PLATELET # BLD [id number] [facility] PMV BLD AUTO9.3 fL9.0 - 12.7 fLHermann Area District HospitalF WBC # BLD AUTO8.4NOMid [facility] GRANULOCYTES # BLD AUTO0.08NIClaiborne County HospitalM GRANULOCYTES/LE[place] NFR BLD AUTO1 %NOMS HealthcareSpecimen Type: BLOOD SPECIMEN Ordering Facility: [facility] Address: [address] [place] [address] Original Ordering Provider: DAVID BRAVOCYTOMEGALOVIRUS (CMV) DNA, QUANTITATIVE PCR, [facility] [id number] DNA JESSICA+probe [#/Vol][facility] CMV DNA JESSICA+probe [Log #/Vol][facility] HospitalCMV DNA JESSICA+probe Qn (P)Detected AbnormalNot DetectedTrihealth Bethesda Butler HospitalInterpretation and review of laboratory resultsAbnormalCMercy Health West Hospitalcoba CMV is an in vitro nucleic acid amplification test for the quantitation of cytomegalovirus (CMV) DNA in human EDTA plasma. The linear range of the assay is 34.5 to 10,000,000 IU/mL (1.54 - 7.00log IU/mL). The lower limit of detection of the assay is 34.5 IU/mL. [facility] Hospitalprehensive metabolic 2000 panelon 09-30-2024 Albumin [Mass/Vol]2.4 g/dLLow3.9 - 4.9 g/dLGodwin ClinicALP [Catalytic activity/Vol]115 U/LHigh38 - 113 U/LCleveland ClinicALT [Catalytic activity/Vol] 11 U/L10 - 54 U/LCleveland ClinicAnion gap [Moles/Vol]10 mmol/L8 - 15 mmol/L [facility] HospitalAST [Catalytic activity/Vol]11 U/LLow14 - 40 U/LClevelCherrington Hospital Bilirubin [Mass/Vol]0.2 mg/dL0.2 - 1.3 mg/dLTrihealth Bethesda Butler HospitalCalcium [Mass/Vol] 8.3 mg/dLLow8.5 - 10.2 mg/dLTrihealth Bethesda Butler HospitalChloride [Moles/Vol]103 mmol/L98 - 107 mmol/LCtrumbull regional medical centerand ClinicCO2 [Moles/Vol]22 mmol/L22 - 30 mmol/LCleveland [facility] Creatinine [Mass/Vol]0.88 mg/dL0.73 - 1.22 mg/dLTrihealth Bethesda Butler HospitalGFR/1.73 sq M.predicted among non-blacks MDRD (S/P/Bld) [Vol rate/Area]92 mL/min/{1.73_m2}- PINOhioHealthComment on above:Estimated Glomerular Filtration Rate (eGFR) is [...] reflect actual GFR.Glucose [Mass/Vol]85 mg/dL74 - 99 mg/dLTrinity Health System [facility] on above:The [place] Diabetes Association (ADA) provides guidance for cutoff [...] Standards of Medical Care in Diabetes 2016, [place] [employer] Association. Diabetes Care. 2016.39(Suppl 1). Potassium [Moles/Vol]4.4 mmol/L3.7 - 5.1 mmol/LCleveland ClinicProtein [Mass/Vol]4.6 g/dLLow6.3 - 8.0 g/dLGodwin ClinicSodium [Moles/Vol]135 mmol/L Oiu503 - 144 mmol/LCleveland ClinicUrea nitrogen [Mass/Vol]11 mg/dL9 - 24 mg/dL [facility] 12 leadon 77-92-9366Mibiclohddx Rate : 88 BPM Atrial Rate : 88 BPM P-R Interval : 118 ms QRS Duration : 86 ms Q-T Interval : 396 ms QTC Calculation(Bazett) : 479 ms Calculated P Chote[place] : -11 degrees Calculated R [place] : 43 degrees Calculated T [place] : 24 degrees SINUS RHYTHM WITH FREQUENT PREMATURE ATRIAL COMPLEXES IN A PATTERN OF BIGEMINY NONSPECIFIC ST ABNORMALITY ABNORMAL ECG Confirmed by IGNACIO PARDO MD ([id number]) on 09/30/2024 10:51:05 PM NAME : LOYD BLANDON PID : [id number] : 1955 Gender : Male Race : ORD : [id number] Procedure Date : Sep 01 2024 14:30:15 Edit Date : Sep 30 2024 22:51:07 Diagnosis: SINUS RHYTHM WITH FREQUENT PREMATURE ATRIAL COMPLEXES IN A PATTERN OF BIGEMINY NONSPECIFIC ST ABNORMALITY ABNORMAL ECG Confirmed by IGNACIO PARDO MD ([id number]) on 09/30/2024 10:51:05 PM Test Reason : [...] QTC Calculation(Bazett) : 479 ms Calculated P Choteau : -11 degrees Calculated R [place] : 43 degrees Calculated T [place] : 24 degrees SINUS RHYTHM WITH FREQUENT PREMATURE ATRIAL COMPLEXES IN A PATTERN OF BIGEMINY NONSPECIFIC ST ABNORMALITY ABNORMAL ECG Confirmed by IGNACIO PARDO MD ([id number]) on 09/30/2024 10:51:05 PM NAME : LOYD BLANDON PID : [id number] : 1955 Gender : Male Race : ORD : [id number] Procedure Date : Sep 01 2024 14:30:15 Edit Date : Sep 30 2024 22:51:07 Diagnosis: SINUS RHYTHM WITH FREQUENT PREMATURE ATRIAL COMPLEXES IN A PATTERN OF BIGEMINY NONSPECIFIC ST ABNORMALITY ABNORMAL ECG Confirmed by IGNACIO PARDO MD ([id number]) on 09/30/2024 10:51:05 PM Test Reason : BPX5 Location : 80 : G100 G100-34 Overread By : IGNACIO PARDO MD Edited By : IGNACIO PARDO MD Referred By : , Acquired by : RACHEL PEREZ [facility] 12 leadOrdered By: Radiologist Radiology on 53-94-8213EYNV [employer] Work Phone: ecG 12-LEADon [phone] Rate : 68 BPM Atrial Rate : 68 BPM P-R Interval : 118 ms QRS Duration : 80 ms Q-T Interval : 392 ms QTC Calculation(Bazett) : 416 ms Calculated P Choteau : 15 degrees Calculated R [place] : 16 degrees Calculated T [place]oteau : 17 degrees NORMAL SINUS RHYTHM WITH SINUS ARRHYTHMIA Confirmed by NEGRO SLATER MD ([id number]) on 09/30/2024 9:46:56 PM NAME : LOYD BLANDON PID : [id number] : 1955 Gender : Male Race : ORD : [id number] Procedure Date : Sep 29 2024 17:07:01 Edit Date : Sep 30 2024 21:46:57 Diagnosis: NORMAL SINUS RHYTHM WITH SINUS ARRHYTHMIA Confirmed by NEGRO SLATER MD ([id number]) on 09/30/2024 9:46:56 PM Test Reason : [...] QTC Calculation(Bazett) : 416 ms Calculated P Choteau : 15 degrees Calculated R [place]oteau : 16 degrees Calculated T Chote[place] : 17 degrees NORMAL SINUS RHYTHM WITH SINUS ARRHYTHMIA Confirmed by NEGRO SLATER MD ([id number]) on 09/30/2024 9:46:56 PM NAME : LOYD BLANDON PID : [id number] : 1955 Gender : Male Race : ORD : [id number] Procedure Date : Sep 29 2024 17:07:01 Edit Date : Sep 30 2024 21:46:57 Diagnosis: NORMAL SINUS RHYTHM WITH SINUS ARRHYTHMIA Confirmed by NEGRO SLATER MD ([id number]) on 09/30/2024 9:46:56 PM Test Reason : Left chest pain - feels more like muscular pain, no radiation, started 3 days a Location : 519 : SMAV Overread By : NEGRO SLATER MD Edited By : NEGRO SLATER MD Referred By : , Acquired by : ALAN ISRAEL RN, [facility] HealthcareEC 12-LEADOrdered By: Radiologist Radiology on 70-10-6532STGE [employer] Work Phone: ecg COMPLETEon 13-75-0816Glofkn Embt49VEVPvzydiyka ClinicCalculated P Xvqh0cpnogabBpfpvtpsj ClinicCalculated R Tpyg41feldewd Barth ClinicCalculated T Xbcc52ffahfcqHvsojzmtk ClinicP-R Gvfqcgpt476 ms Barth ClinicQRS Msxxazcg51 msCleveland ClinicQT Wqkyhgwo920 msCleveland ClinicQTC Calculation (Bazett)430 msCleveland ClinicVentricular Lxin38GAC Godwin ClinicNORMAL SINUS RHYTHM LOW VOLTAGE QRS, CONSIDER PULMONARY DISEASE, PERICARDIAL EFFUSION, OR NORMAL VARIANT BORDERLINE ECG Confirmed by NEGRO SLATER MD ([id number]) on 09/30/2024 9:47:02 PMHEART AND VASCULAR INSTITUTENAME : LOYD BLANDON PID : [id number] : 1955 Gender : Male Race : ORD : Procedure Date : Sep 29 2024 17:07:42 Edit Date : Sep 30 2024 21:47:07 Diagnosis: NORMAL SINUS RHYTHM LOW VOLTAGE QRS, CONSIDER PULMONARY DISEASE, PERICARDIAL EFFUSION, OR NORMAL VARIANT BORDERLINE ECG Confirmed by NEGRO SLATER MD ([id number]) on 09/30/2024 9:47:02 PM Test Reason : Location : [address] [place] [address] Overread By : NEGRO SLATER MD Edited By : NEGRO SLATER MD Referred By : , Acquired by : ALAN ISRAEL RN,[facility] AND VASCULAR INSTITUTEGodwin ClinicAtrial Vmrq94CJCDxvlsozyw ClinicCalculated P Uzmv30xeyfdolLptmktzcw ClinicCalculated R Broy50jzhvzdjTcaohnonk ClinicCalculated T Dxpg16ndgvfufKrgiqwaxn ClinicP-R Pndbvhng338 msCleveland ClinicQRS Nhmafhpi70 msCleveland ClinicQT Yvvwfvck080 ms Barth ClinicQTC Calculation (Bazett)416 msCleveland ClinicVentricular Rate68 BPMCletrihealth ClinicNORMAL SINUS RHYTHM WITH SINUS ARRHYTHMIA Confirmed by NEGRO SLATER MD ([id number]) on 09/30/2024 9:46:56 PMHEART AND VASCULAR INSTITUTENAME : LOYD BLANDON PID : [id number] : 1955 Gender : Male Race : ORD : [id number] Procedure Date : Sep 29 2024 17:07:01 Edit Date : Sep 30 2024 21:46:57 Diagnosis: NORMAL SINUS RHYTHM WITH SINUS ARRHYTHMIA Confirmed by NEGRO SLATER MD ([id number]) on 09/30/2024 9:46:56 PM Test Reason : Left chest pain - feels more like muscular pain, no radiation, started 3 days a Location : [facility] : SMAV Overread By : NEGRO SLATER MD Edited By : NEGRO SLATER MD Referred By : , Acquired by : ALAN ISRAEL RN,HEART AND VASCULAR INSTITUTETrihealth Bethesda Butler HospitalECG01on 39-21-6701Jiqirvwbzem Rate : 71 BPM Atrial Rate : 71 BPM P-R Interval : 128 ms QRS Duration : 76 ms Q-T Interval : 396 ms QTC Calculation(Bazett) : 430 ms Calculated P Choteau : 6 degrees Calculated R Choteau : 19 degrees Calculated T Choteau : 23 degrees NORMAL SINUS RHYTHM LOW VOLTAGE QRS, CONSIDER PULMONARY DISEASE, PERICARDIAL EFFUSION, OR NORMAL VARIANT BORDERLINE ECG Confirmed by NEGRO SLATER MD ([id number]) on 09/30/2024 9:47:02 PM NAME : LOYD BLANDON PID : [id number] : 1955 Gender : Male Race : ORD : Procedure Date : Sep 29 2024 17:07:42 Edit Date : Sep 30 2024 21:47:07 Diagnosis: NORMAL SINUS RHYTHM LOW VOLTAGE QRS, CONSIDER PULMONARY DISEASE, PERICARDIAL EFFUSION, OR NORMAL VARIANT BORDERLINE ECG Confirmed by NEGRO SLATER MD ([id number]) on 09/30/2024 9:47:02 PM Test Reason : [...] QTC Calculation(Bazett) : 430 ms Calculated P Choteau : 6 degrees Calculated R Choteau : 19 degrees Calculated T Choteau : 23 degrees NORMAL SINUS RHYTHM LOW VOLTAGE QRS, CONSIDER PULMONARY DISEASE, PERICARDIAL EFFUSION, OR NORMAL VARIANT BORDERLINE ECG Confirmed by NEGRO SLATER MD ([id number]) on 09/30/2024 9:47:02 PM NAME : LOYD BLANDON PID : [id number] : 1955 Gender : Male Race : ORD : Procedure Date : Sep 29 2024 17:07:42 Edit Date : Sep 30 2024 21:47:07 Diagnosis: NORMAL SINUS RHYTHM LOW VOLTAGE QRS, CONSIDER PULMONARY DISEASE, PERICARDIAL EFFUSION, OR NORMAL VARIANT BORDERLINE ECG Confirmed by NEGRO SLATER MD ([id number]) on 09/30/2024 9:47:02 PM Test Reason : Location : 519 : SMAV Overread By : NEGRO SLATER MD Edited By : NEGRO SLATER MD Referred By : , Acquired by : ALAN ISRAEL RN, [facility] SpringsVnxsfclbzqLHE74Igjozus By: Radiologist Radiology on 97-92-6633PNUCSaint [facility] Springs Work Phone: GGTon [phone] glutamyl transferase [Catalytic activity/Vol]81 U/LHigh10 - 70 U/LCleveland ClinicGamma glutamyl transferase [Catalytic activity/Vol]on 30-45-4504Nbsfnbttcpiudz and review of laboratory resultsAbnormalCleveland [facility] HamiltonLaboratory - Hematology and Cell countson 99-36-9875Sbunkvgol/100 WBC (Bld)0.7 %[facility] SpringsEosinophils/100 WBC (Bld)2.3 %[facility] SpringsErythrocyte distribution width (RBC) [Ratio]16.1 % High11.5 - 15.0 %[facility] SpringsHematocrit (Bld) [Volume fraction]25.5 %Low39.0 - 51.0 %[facility] SpringsHemoglobin (Bld) [Mass/Vol]8.1 g/dLLow13.0 - 17.0 g/dL [facility] SpringsLymphocytes/100 WBC (Bld)3.9 %[facility] HospitalH (RBC) [Entitic mass]31.2 pg26.0 - 34.0 pgSaint John's Aurora Community HospitalHC (RBC) [Mass/Vol]31.8 g/dL30.5 - 36.0 g/dLSaint John's Aurora Community HospitalV (RBC) [Entitic vol]98.1 fL80.0 - 100.0 fLSaint Mary's Hospital of Blue SpringsMonocytes/100 WBC (Bld)10.4 %[facility] SpringsNeutrophils/100 WBC (Bld) 81.7 %[facility] SpringsRBC (Bld) [#/Vol]2.6 10*6/uLLow4.20 - 6.00 m/uLSaint Mary's Hospital of Blue SpringsMAGNESIUMon 85-42-1530Xaufbdedx [Mass/Vol]1.6 mg/dLLow1.7 - 2.3 mg/dL [facility] HospitalNT PRO BNPon 52-55-1906Sbzzlvdvdzu peptide.B prohormone N- Terminal [Mass/Vol]493 pg/mLHighNINF - 125 pg/mLClevelCherrington HospitalNatriuretic peptide.B prohormone N-Terminal [Mass/Vol]on 30-67-5566Rihmshptrmqdjj and review of laboratory resultsAbnormalCtrumbull regional medical centerand [facility] HamiltonNo Panel Informationon 54-12-7927Emxpjcjgkqcrhp and review of laboratory resultsAbnormal [facility] HospitalInterpretation and review of laboratory results AbnormalNOMS [facility] HospitalNOWV HealthcareTACROLIMUS/FK-506 BLOrdered By: Julia Fabian on 12-16-6810Edslzwnbfr (Bld) [Mass/Vol]4.8 ng/mLLow5.0 - 20.0 ng/mL [facility] HospitalComment on above:Individualized target levels for a [...] situation. Test performed by chemiluminescent immunoassay using KupiBonus Alinity i.Tacrolimus (Bld) [Mass/Vol]Ordered By: Julia Fabian on 17-40-1603Wffrygtuktnejg and review of laboratory resultsAbnormalCleveland [facility] Panel Informationon 50-93-4998Zxsdlphax Study observation (narrative)[facility] BACTERIA WND CULTon 90-68-6822HPV BACTERIA WND CULT CULTURE, WOUND: No growth NOMS HealthcareCCF BACTERIA WND CULT GRAM STAIN: No organisms seen NOMS HealthcareCCF BACTERIA WND CULTNo Polymorphonuclear LeukocytesNOMS HealthcareOriginal Ordering Provider: GAY HICKEY HealthcareCCF BACTERIA FLD CULTon 83-65-8823YOS BACTERIA FLD CULT CULTURE, BODY FLD: No growth NOMS HealthcareCCF BACTERIA FLD CULT GRAM STAIN: No organisms seen NOMS HealthcareCCF BACTERIA FLD CULTNo Polymorphonuclear LeukocytesNOMS HealthcareCCF BACTERIA FLD CULTGram stain from primary specimenNOMS HealthcareOriginal Ordering Provider: WESTLEYVELIA WENCESLAO AUTUMN CONNELLSainte Genevieve County Memorial HospitalF BACTERIA SPEC ANAEROBE CULTon 33-29-3921MLV BACTERIA SPEC ANAEROBE CULT CULTURE, ANAEROBE: Negative for anaerobes. [facility] HealthcareOriginal Ordering Provider: KATHY ANG [facility]cy HealthF FLUABV+SARS-COV-2+RSV PNL RESP JESSICA+PROBEon 83-67-3306KIQ FLUABV+SARS-COV-2+RSV PNL RESP JESSICA+PROBE INFLUENZA A RNA: Not detected [facility] HospitalF FLUABV+SARS-COV-2+RSV PNL RESP JESSICA+PROBE INFLUENZA B RNA: Not detected [facility] FLUABV+SARS-COV-2+RSV PNL RESP JESSICA+PROBE RESPIRATORY SYNCYTIAL VIRUS (RSV) RNA: Not detected [facility] SpringsOriginal Ordering Provider: ROSALBA RUELAS [facility] HospitalTISS PATH BX REPORTon 97-11-8700TJ DISCLAIMERNOMS HealthcareComment on above:Laboratory Developed Test (LDT) Disclaimer: Performance characteristics of immunohistochemical, immunofluorescent, and chromogenic in-situ hybridization tests have been determined by the performing laboratory within [facility]'s [facility] Pathology and Laboratory Medicine Department ([facility], [facility], [facility], [facility], [facility], [facility], or [facility]) in a manner consistent with CLIA [...] REPORTNOMS HealthcareComment on above:Surgical Pathology Report Case: [id number] Authorizing Provider: Thomas Khan MD Collected: 09/02/2024 11:43 AM Ordering Location: [place] [address] Received: 09/02/2024 05:29 PM Pathologist: Cali Breen MD Specimen: Colon, Descending, Polyp, descending colon polyp; r/o adenoma [facility] FINAL DIAGNOSISNOMS HealthcareComment on above:Descending colon polyp, biopsy: - Polypoid granulation tissue. - Separate fragment of colonic mucosa with no diagnostic abnormality. - Negative for dysplasia. JEL 09/03/2024 at 1311 EDT [facility]FORM[facility] LAB[facility]EM [facility] HealthcareComment on above:Diagnostic interpretation performed at: [facility], [address] [place] [address] CLIA# [id number] Catering Chef: Nakul Grimm MD [facility] GROSS DESCRIPTIONNOWV HealthcareComment on above:A. Colon, Descending, Polyp Received in formalin are two pieces of bazzi, soft tissue aggregating to 0.5 x 0.2 x 0.1 cm. Totally submitted in one cassette. Gross examination performed at [facility], [address] [place] [address] September 02, 2024 9:30 PM Specimen Type: TISSUE SPECIMEN Ordering Facility: [facility] Address: [address] [place] [address] Original Ordering Provider: THOMAS CORTEZDelaware Hospital for the Chronically Ill DISCLAIMER NOMS HealthcareComment on above:Laboratory Developed Test (LDT) Disclaimer: Performance characteristics of immunohistochemical, immunofluorescent, and chromogenic in-situ hybridization tests have been determined by the performing laboratory within [facility]'s [facility] Pathology and Laboratory Medicine Department ([facility], [facility], [facility], [facility], [facility], [facility], or [facility]) in a manner consistent with CLIA requirements. One or more of these tests may not have been cleared or approved by the FDA. [facility] is regulated under CLIA as qualified to perform high- complexity testing. These tests are used for clinical purposes. These should not be regarded asinvestigational or for research. Positive and negative controls stain appropriately. [facility] CASE REPORTNOWV HealthcareComment on above:Surgical Pathology Report Case: [id number] Authorizing Provider: Giana Kingston MD Collected: 08/31/2024 09:11 AM Ordering Location: [place] [address] Received: 09/02/2024 01:36 PM Pathologist: Raymond Carranza MD Specimen: Colon, Transverse, Polyp, r/o adenoma [facility] FINAL DIAGNOSISNOWV HealthcareComment on above:A. Transverse colon, polypectomy: - Tubular adenoma. at 1252 EDT [facility] HealthcareComment on above:Diagnostic interpretation performed at: [facility], [address] [place] [address] CLIA# [id number] Catering Chef: Magali Jane MD [facility] GROSS DESCRIPTIONNOWV HealthcareComment on above:A. Colon, Transverse, Polyp Received in formalin is one piece of bazzi, soft tissue measuring 0.4 x 0.3 x 0.1 cm. Totally submitted in one cassette. Gross examination performed at [facility], [address] [place] [address] AMS September 02, 2024 4:28 PM Specimen Type: TISSUE SPECIMEN Ordering Facility: [facility] Address: [address] [place] [address] Original Ordering Provider: GIANA KINGSTONPennsylvania HospitalNo Panel Informationon 59-68-3373IGF BACTERIA BLD CULT CULTURE, BLOOD: No growth 5 days NOMS HealthcareOriginal Ordering Provider: CALI Carmen VICTOR HUGOAcadia Healthcare PARACENTESIS (POC) DDI USE ONLYon 32-02-5159Dpchefmxi Jbnszt89ni Approving, but needs appt for additional refills.NormalUnDetwiler Memorial HospitalCBC (INCLUDES DIFF/PLT)on 70-26-1347Lnchyxonm (Bld) [#/Vol]0.043 10*3/uLNormal0-200Quest DiagnosticsComment on above:Order Comment: FASTING:NO FASTING: NOPerformed By: #### [id number] #### [facility] [address], [address] [place] [address] Senior Medical Director: Roland Duggan MDBasophils/100 WBC (Bld)0.7 %NormalQuest DiagnosticsComment on above:Order Comment: FASTING:NO FASTING: NOPerformed By: #### [id number] #### [facility] [address], [address] [place] [address] Senior Medical Director: Roland Duggan MDEosinophils (Bld) [#/Vol]0.153 10*3/uLNormal 15-500Quest DiagnosticsComment on above:Order Comment: FASTING:NO FASTING: NOPerformed By: #### [id number] #### [facility] of [place] [address] Senior Medical Director: Roland Duggan MDEosinophils/100 WBC (Bld)2.5 %NormalQuest DiagnosticsComment on above:Order Comment: FASTING:NO FASTING: NOPerformed By: #### [id number] #### [facility] of [address], [address] [place] [address] Senior Medical Director: Roland Duggan MDErythrocyte distribution width (RBC) [Ratio] 13.9 %Vpwkac54.0-15.0Quest DiagnosticsComment on above:Order Comment: FASTING:NO FASTING: NOPerformed By: #### [id number] #### [facility] of [place] [address] Senior Medical Director: Roland Duggan MDHematocrit (Bld) [Volume fraction]32.7 %Low 38.5-50.0Quest DiagnosticsComment on above:Order Comment: FASTING:NO FASTING: NOPerformed By: #### [id number] #### [facility] of [place] [address] Senior Medical Director: Roland Duggan MDHemoglobin (Bld) [Mass/Vol]11.2 g/dLLow 13.2-17.1Quest DiagnosticsComment on above:Order Comment: FASTING:NO FASTING: NOPerformed By: #### [id number] #### [facility] of [address], [address] [place] [address] Senior Medical Director: Roland Duggan MDLymphocytes (Bld) [#/Vol]0.342 10*3/uLLow 850-3900Quest DiagnosticsComment on above:Order Comment: FASTING:NO FASTING: NOPerformed By: #### [id number] #### [facility] of [address], [address] [place] [address] Senior Medical Director: Roland Duggan MDLymphocytes/100 WBC (Bld)5.6 %NormalQuest DiagnosticsComment on above:Order Comment: FASTING:NO FASTING: NOPerformed By: #### [id number] #### [facility] [address], [address] [place] [address] Senior Medical Director: Roland REYNOLDSCH (RBC) [Entitic mass]33.8 myNleh79.0-33.0 Quest DiagnosticsComment on above:Order Comment: FASTING:NO FASTING: NOPerformed By: #### [id number] #### [facility] [place] [address] Senior Medical Director: Roland REYNOLDSCHC (RBC) [Mass/Vol]34.3 g/rOQjsxfr05.0-36.0 Quest DiagnosticsComment on above:Order Comment: FASTING:NO FASTING: NOResult Comment: For adults, a slight decrease in the calculated MCHC value (in the range of 30 to 32 g/dL) is most likely not clinically significant; however, it should be interpreted with caution in correlation with other red cell parameters and the patient's clinical condition.Performed By: #### [id number] #### [facility] [place] [address] Senior Medical Director: Roland Duggan MDMCV (RBC) [Entitic vol]98.8 vMEobiuo01.0-100.0 Quest DiagnosticsComment on above:Order Comment: FASTING:NO FASTING: NOPerformed By: #### [id number] #### [facility] [address], [address] [place] [address] Senior Medical Director: Roland Duggan MDMonocytes (Bld) [#/Vol]0.885 10*3/uLNormal 200-950Quest DiagnosticsComment on above:Order Comment: FASTING:NO FASTING: NOPerformed By: #### [id number] #### [facility] [place] [address] Senior Medical Director: Roland Duggan MDMonocytes/100 WBC (Bld)14.5 %NormalQuest DiagnosticsComment on above:Order Comment: FASTING:NO FASTING: NOPerformed By: #### [id number] #### [facility] of [address], [address] [place] [address] Senior Medical Director: Roland Tylerutrophilbelem (Bld) [#/Vol]4.679 10*3/uLNormal 1500-7800Quest DiagnosticsComment on above:Order Comment: FASTING:NO FASTING: NOPerformed By: #### [id number] #### [facility] of [address], [address] [place] [address] Senior Medical Director: Roland Duggan MDNeutrophils/100 WBC (Bld)76.7 %NormalQuest DiagnosticsComment on above:Order Comment: FASTING:NO FASTING: NOPerformed By: #### [id number] #### [facility] of [address], [address] [place] [address] Senior Medical Director: Roland Duggan MDPlatelet mean volume (Bld) [Entitic vol]10.1 fLNormal7.5-12.5Quest DiagnosticsComment on above:Order Comment: FASTING:NO FASTING: NOPerformed By: #### [id number] #### [facility] of [address], [address] [place] [address] Senior Medical Director: Roland Duggan MDPlatelets (Bld) [#/Vol]147 10*3/uLNormal 140-400Quest DiagnosticsComment on above:Order Comment: FASTING:NO FASTING: NOPerformed By: #### [id number] #### [facility] of [address], [address] [place] [address] Senior Medical Director: Roland Duggan MDRBC (Bld) [#/Vol]3.31 10*6/uLLow4.20-5.80Quest DiagnosticsComment on above:Order Comment: FASTING:NO FASTING: NOPerformed By: #### [id number] #### [facility] of [address], [address] [place] [address] Senior Medical Director: Roland KELLERBC (Bld) [#/Vol]6.1 10*3/uLNormal3.8-10.8 [facility] DiagnosticsComment on above:Order Comment: FASTING:NO FASTING: NOPerformed By: #### [id number] #### [facility] [address], [address] [place] [address] Senior Medical Director: Roland Duggan MDCT BIOPSY VERTEBRA OR FEMURon 08-06-2024* * *Final Report* * * DATE OF EXAM: Aug 06 2024 12:35PM [facility] 2013 - [address] BIOPSY VERTEBRA OR FEMUR [...] with administration of agent, ends when continuous nhwn-me-ywsb time ends): 26 minutes. f) Patient monitoring:I [...] DESCRIBED. Attending Radiologist: Dr. Troy Franz MD Manufacturing Cost Estimator: Jeovany Li MD The procedure was performed by the the spa assistant manager, and the attending radiologist personally supervised the entire procedure. Behavioral Science Chair: PSCPatricia Transcribe Date/Time: Aug 06 2024 12:41P Dictated by : JEOVANY LI MD This examination was interpreted and the report reviewed and electronically signed by: TROY FRANZ MD on Aug 06 2024 1:10PM EST [id number]^AGFA_IDC^SI^ACNCCFRadiology, Radiologist, - 08/06/2024 * * *Final Report* * * DATE OF EXAM: Aug 06 2024 12:35PM [facility] 2013 - [address] BIOPSY VERTEBRA OR FEMUR [...] with administration of agent, ends when continuous hjau-on-wceh time ends): 26 minutes. f) Patient monitoring:I [...] DESCRIBED. Attending Radiologist: Dr. Troy Franz MD Manufacturing Cost Estimator: Jeovany Li MD The procedure was performed by the the spa assistant manager, and the attending radiologist personally supervised the entire procedure. Behavioral Science Chair: [facility]OSPITALPatricia Transcribe Date/Time: Aug 06 2024 12:41P Dictated by : JEOVANY LI MD This examination was interpreted and the report reviewed and electronically signed by: TROY FRANZ MD on Aug 06 2024 1:10PM EST [id number]^AGFA_IDC^SI^ACN [facility] HealthcareRadiology Study observation (narrative)[facility] HealthcareCT BIOPSY VERTEBRA OR FEMUROrdered By: Radiologist Radiology on 91-75-2518WETV Healthcare Work Phone: ccf CMP (CMP) (FOR REMOTE [facility] USE)on 51-99-1461Cyfbzqe [Mass/Vol]2.4 g/dLLow3.4 - 5.0 g/dLNOWV HealthcareALBUMIN GLOBULIN RATIO0.5NOWV HealthcareALP [Catalytic activity/Vol]149 U/LHigh46 - 116 U/LNOMS [...] HealthcareGlobulin (S) [Mass/Vol]4.4 g/dLNOMS Healthcare Glucose [Mass/Vol]225 mg/rKKwpy85 - 106 mg/dLNOWV HealthcareInterpretation and review of laboratory resultsAbnormalNOMS HealthcarePotassium [Moles/Vol]4.8 mmol/L3.5 - 5.1 mmol/LNOMS HealthcareProtein [Mass/Vol]6.8 g/dL6.4 - 8.2 g/dL NOMS HealthcareSodium [Moles/Vol]130 mmol/EDft798 - 145 mmol/LNOMS HealthcareTBH EGFR-NON AF VUOJMPIY69Ucu>=60 mL/min/1.73m 2NOMS HealthcareUrea nitrogen [Mass/Vol]17 mg/dL7.0 - 18.0 mg/dLNOWV HealthcareUrea nitrogen/Creatinine [Mass ratio]12.8 mg/mgNOMS HealthcareCLINISYNCNCIMARRON MEMORIAL [facility] HealthcareCCF CMP (CMP) (FOR REMOTE [facility] USE)on 62-07-1797Lolxhjs [Mass/Vol]2.6 g/dLLow3.4 - 5.0 g/dLNOWV Healthcare ALBUMIN GLOBULIN RATIO0.6NOWV HealthcareALP [Catalytic activity/Vol]143 U/LHigh 46 - 116 [...] 2NOMS HealthcareGlobulin (S) [Mass/Vol]4.7 g/dLNOMS HealthcareGlucose [Mass/Vol]164 mg/nDVfbt05 - 106 mg/dL NOMS HealthcareInterpretation and review of laboratory resultsAbnormalNOMS HealthcarePotassium [Moles/Vol]5 mmol/L3.5 - 5.1 mmol/LNOMS HealthcareProtein [Mass/Vol]7.3 g/dL6.4 - 8.2 g/dLNOMS HealthcareSodium [Moles/Vol]132 mmol/LLow 136 - 145 mmol/LNOMS HealthcareTBH EGFR-NON AF PHKZRRVP15Xyp>=60 mL/min/1.73m 2 NOMS HealthcareUrea nitrogen [Mass/Vol]23 mg/dLHigh7.0 - 18.0 mg/dLNOWV HealthcareUrea nitrogen/Creatinine [Mass ratio]11.9 mg/mgNOMS Healthcare CLINISYNCNOMS HealthcareUS paracentesis abd w/imageon 56-07-9205PQ paracentesis abd w/imagePAR[facility] [place] [address] Ultrasound Report Signed Patient: Loyd Blandon MR#: [id number] 66 : 1955 Acct:[id number] Age/Sex: 68 / M ADM Date: 07/30/24 Loc: Room: Type: [facility] Attending Dr: Irena Johnson MD Ordering Provider: Irena Johnson MD Date of Service: 07/30/24 US/US paracentesis abd w/image: K70.31 Copies to: Irena Johnson MD ULTRASOUND-GUIDED PARACENTESIS HISTORY: Abdominal distention. FINDINGS: Anechoic free intraperitoneal fluid identified. TECHNIQUE: Informed consent was obtained. The skin entry site was prepped and draped in sterile fashion with local lidocaine administered. 5 Lao Yueh centesis catheter was administered into the deepest fluid collection with ultrasound guidance. Return of fluid confirms adequate localization. 4.45L of straw-colored clear fluid withdrawn. The patient expressed no immediate complications and was discharged in satisfactory condition. US/US paracentesis abd w/image IMPRESSION: SUCCESSFUL ULTRASOUND-GUIDED PARACENTESIS. Impression dictated by: Albin Villela M.D.07/30/2024 1:21 PM Dictation Location: [place] [address] Tech: Ana So Transcribed By: ROLAND 07/30/24 1321 Dictated By: Albin Villela DO 07/30/24 1315 Signed By: 07/30/24 1321[facility] Physician Rhknn32xy [id number], but needs appt for additional refills.NormalGuernsey Memorial HospitalCCF CMP (CMP) (FOR REMOTE [facility] USE)on 75-54-7890Vxufwzb [Mass/Vol]2.5 g/dLLow3.4 - 5.0 g/dLNOMS HealthcareALBUMIN GLOBULIN [...] [Mass/Vol]6.8 g/dL6.4 - 8.2 g/dLNOMS HealthcareSodium [Moles/Vol]133 mmol/NSgx799 - 145 mmol/LNOMS HealthcareTBH EGFR-NON AF KZAWUEEB67Ctv>=60 mL/min/1.73m 2NOMS HealthcareUrea nitrogen [Mass/Vol]23 mg/dLHigh7.0 - 18.0 mg/dLNOMS HealthcareUrea nitrogen/Creatinine [Mass ratio]15.9 mg/mgNOWV HealthcareCLINISYNCNOMS HealthcareBODY FLUID CELL COUNTOrdered By: Vonnie Parada on 39-19-9405Mlewysf (Unsp spec)ClearClearCleveland ClinicClarity (Unsp spec)Not IndicatedClearCmount carmel health system ClinicColor (Body fld)YellowYellow [facility] HospitalColor (Body fld)Not IndicatedYellowCity Hospital Manual cnt (Body fld) [#/Vol]/uLNINF - 2000 /uLLouis Stokes Cleveland VA Medical Centerpecimen source Nom (Body fld)Ascites FluidKettering Health Greene Memorial Manual cnt (Body fld) [#/Vol]71 /uL NINF - 1000 /uLWVUMedicine Harrison Community HospitalGuidance for paracentesis and insertion of tube of PeritoneumOrdered By: Elsy Johnson on 83-09-7268Uqpfyqsaj Clinic Work Phone: radiology Study observation (narrative)[facility] Work Phone: MANUAL DIFFERENTIAL, BODY FLUIDOrdered By: Billie Wilson on 19-32-1159Dwzc Total Body Kffnn161jivhr countedTrihealth Bethesda Butler Hospital Interpretation and review of laboratory resultsAbnormalCleveland ClinicLymph%, BF72 %High18 - 36 %Barth ClinicMacro%, BF11 %Low64 - 80 %[facility] Meso%, BF1 %0 - 2 %Barth ClinicMono%, BF11 %Barth ClinicNeut%, BF5 %High 0 - 1 %[facility] HospitalCletrihealth ClinicUS PARACENTESIS (POC) DDI USE ONLYon 26-44-4186Smzxlxoqu Geyitr72nd 79-40-484691Fuibqlsjv, but needs appt for additional refills.NormalGuernsey Memorial HospitalCoagulation Profile on 19-87-9720zAQC Coag (Bld) [Time]32.0 yMrbdzo24.1-36.5The [facility] Physician GroupComment on above:Order Comment: STAT FOR PARAResult Comment: A hematocrit value greater than 55% may lead to inaccurate results in coagulation testing. Patients having hematocrit values >55% require a special collection tube for coagulation studies. Please contact the laboratory at [phone] for redraw instructions. PERFORMED BY: [place] [id number] PATHOLOGIST FREEZING MACHINE OPERATOR JEAN SOLIS M.D.Performed By: #### PP, PLT #### [facility] [address] [place] [address] USAINR Coag (PPP) [Relative time]1.2 {INR}NormalThe [facility] Physician [facility] Va Medical CenterComment on above:Order Comment: STAT FOR PARAResult Comment: [...] - 4.5Performed By: #### PP, PLT #### [facility] [address] [place] [address] USAPT Coag (PPP) [Time]13.6 sHigh9.0-12.9The [facility] Physician GroupComment on above:Order Comment: STAT FOR PARAResult Comment: A hematocrit value greater than 55% may lead to inaccurate results in coagulation testing. Patients having hematocrit values >55% require a special collection tube for coagulation studies. Please contact the laboratory at [phone] for redraw instructions.Performed By: #### PP, PLT #### [facility] [address] [place] [address] USAINR in Platelet poor plasma by Coagulation assayOrdered By: Irena Johnson on 25-82-3566ACV Coag (PPP) [Relative time]INR in Platelet poor plasma by Coagulation assayProtestant Deaconess HospitalComment on above:INR Therapeutic Range A) Pre- and Peroperative OAT started two weeks before surgery. NOT HIP SURGERY: 1.5 - 2.5 HIP SURGERY: 2 - 3B) Primary and secondary prevention of venous THROMBOSIS: 2 - 3C) Active venous thrombosis, pulmonary embolismand prevention of recurrent venous thrombosis: 2 - 3D) Prevention of arterial thromboembolismincluding patients with mechanical heart valves: 3 - 4.5Platelet Counton 33-38-3103Upmhktsuj (Bld) [#/Vol]124 10*3/uFZmg468-562Eth [facility] Physician GroupComment on above:Order Comment: STAT FOR PARAResult Comment: PERFORMED BY: [place] [id number] PATHOLOGIST FREEZING MACHINE OPERATOR JEAN SOLIS M.D.Performed By: #### PP, PLT #### [facility] [address] [place] [address] USAPlatelets Auto (Bld) [#/Vol]Ordered By: Irena Johnson on 68-88-7689Ozqunlgmp (Bld) [#/Vol]Platelets [#/volume] in Blood by Automated ergbbRgv294-022ZnroyylknProtestant Deaconess HospitalProthrombin time (PT)Ordered By: Irena Johnson on 08-47-1730VX Coag (PPP) [Time]Prothrombin time (PT)High9.0-12.9 [facility] Deaconess HospitalComment on above:A hematocrit value greater than 55% may lead to inaccurate results in coagulation testing. Patientshaving hematocrit values >55% require a special collection tube for coagulation studies. Please contact the laboratory at [phone] for redraw instructions. US paracentesis abd w/imageon 18-62-2219HP paracentesis abd w/imagePARKVIEW [facility] Main [place] [address] [place] [address] Ultrasound Report Signed Patient: Loyd Blandon MR#: [id number] 66 : 1955 Acct:[id number] Age/Sex: 68 / M ADM Date: 06/19/24 Loc: Room: Type: [facility] Attending Dr: Irena Johnson MD Ordering [...] and local anesthesia with lidocaine, a 5 Lao centesis catheter was advanced into the peritoneal cavity. Approximately 4700 mL of ascites was drained. The catheter was removed. There were no immediate complications. US/US paracentesis abd w/image IMPRESSION: SUCCESSFUL ULTRASOUND-GUIDED PARACENTESIS. Impression dictated by: Morales Alvarez Jr., D.OAshley06/19/2024 3:34 PM Dictation Location: [place] [address] Tech: Blanca Maria Isabel Transcribed By: [facility] 06/19/24 153 Dictated By: Morales Alvarez Jr, DO 06/19/24 1534 Signed By: 06/19/24 1534[facility] Physician GroupaPTT in Platelet poor plasma by Coagulation assayOrdered By: Irena Johnson on 90-77-2648aREP Coag (PPP) [Time] Activated partial thromboplastin time (aPTT) in platelet poor plasma by coagulation a25.1-36.5FThe Jewish HospitalComment on above:A hematocrit value greater than 55% may lead to inaccurate results in coagulation testing. Patientshaving hematocrit values >55% require a special collection tube for coagulation studies. Please contact the laboratory at [phone] for redraw instructions.ALL CBC WITH AUTO DIFFon 46-09-3367Tynrnmolmvf distribution width (RBC) [Ratio]14.6 %11.0 - 15.0 %[facility] Blue SpringsHematocrit (Bld) [Volume fraction]34.7 %Low42.0 - 54.0 %[facility] Blue SpringsHemoglobin (Bld) [Mass/Vol]11.8 g/dLLow14.0 - 18.0 g/dLSaint Mary's Hospital of Blue SpringsInterpretation and review of laboratory resultsAbnormalBarnes-Jewish [facility] (RBC) [Entitic mass]34.1 ofTnfm33.9 - 34.0 pg [facility] HospitalHC (RBC) [Mass/Vol]34 g/dL29.9 - 35.2 g/dLSaint John's Aurora Community HospitalV (RBC) [Entitic vol]100.3 dHTuvq98.0 - 94.0 fLSaint Mary's Hospital of Blue SpringsPlatelet mean volume (Bld) [Entitic vol]10.8 fL9.5 - 13.5 fLSaint Francis Medical Center WZS203IsyCJYFSaint Francis Medical Center RBC3.46LowSaint Francis Medical Center WBC4.3[facility] Blue SpringsCLINISYNCNWashington County Memorial Hospital Cervical spine WO and W contrast [...] are normal in appearance. DIVISION OF RADIOLOGYProvider, [facility] [place] - 06/08/2024 * * *Final Report* * [...] and assume there are 5 lumbar-type vertebrae. Behavioral Science Chair: PSCB Transcribe Date/Time: Jun 08 2024 3:55P Dictated by : BRENDA MUNOZ MD This examination was interpreted and the report reviewed and electronically signed by: BRENDA UMNOZ MD on Jun 08 2024 4:10PM [facility] Lumbar spine WO and W contrast Syed 06-08-2024* * *Final Report* * * DATE OF EXAM: Jun 08 2024 2:06PM [facility] 0304 - MRI LUMBAR SPINE WO/W IVCON [...] are normal in appearance. DIVISION OF RADIOLOGYProvider, [facility] [place] - 06/08/2024 * * *Final Report* * [...] and assume there are 5 lumbar-type vertebrae. Behavioral Science Chair: [employer] (P) Transcribe Date/Time: Jun 08 2024 3:55P Dictated by : BRENDA MUNOZ MD This examination was interpreted and the report reviewed and electronically signed by: BRENDA MUNOZ MD on Jun 08 2024 4:10PM EST [facility] HospitalRadiology Study observation (narrative)[facility] Thoracic spine WO and W contrast Syed 06-08-2024* * *Final Report* * * DATE OF EXAM: Jun 08 2024 2:06PM [facility] 0326 - MRI THORACIC SPINE WO/W IVCON [...] are normal in appearance. DIVISION OF RADIOLOGYProvider, [facility] [place] - 06/08/2024 * * *Final Report* * [...] and assume there are 5 lumbar-type vertebrae. Behavioral Science Chair: PSCB Transcribe Date/Time: Jun 08 2024 3:55P Dictated by : BRENDA MUNOZ MD This examination was interpreted and the report reviewed and electronically signed by: BRENDA MUNOZ MD on Jun 08 2024 4:10PM [facility] CERVICAL SPINE WO/W IVCONon 06-08-2024* * *Final Report* * * DATE OF EXAM: Jun 08 2024 2:06PM [facility] 0298 - MRI CERVICAL SPINE WO/W IVCON [...] and assume there are 5 lumbar-type vertebrae. Behavioral Science Chair: [facility] Transcribe Date/Time: Jun 08 2024 3:55P Dictated by : BRENDA MUNOZ MD This examination was interpreted and the report reviewed and electronically signed by: BRENDA MUNOZ MD on Jun 08 2024 4:10PM EST [id number]^AGFA_IDC^SI^ACNCCFRadiology, Radiologist, - 06/08/2024 * * *Final Report* * * DATE OF EXAM: Jun 08 2024 2:06PM [facility] 0298 - MRI CERVICAL SPINE WO/W IVCON [...] and assume there are 5 lumbar-type vertebrae. Behavioral Science Chair: SRINI Transcribe Date/Time: Jun 08 2024 3:55P Dictated by : BRENDA MUNOZ MD This examination was interpreted and the report reviewed and electronically signed by: BRENDA MUNOZ MD on Jun 08 2024 4:10PM EST [id number]^AGFA_IDC^SI^ACN [facility] LUMBAR SPINE WO/W IVCONon 06-08-2024* * *Final [...] and assume there are 5 lumbar-type vertebrae. Behavioral Science Chair: SRINI Transcribe Date/Time: Jun 08 2024 3:55P Dictated by : BRENDA MUNOZ MD This examination was interpreted and the report reviewed and electronically signed by: BRENDA MUNOZ MD on Jun 08 2024 4:10PM EST [id number]^AGFA_IDC^SI^ACNCCFRadiology, Radiologist, - 06/08/2024 * * *Final Report* * * DATE OF EXAM: Jun 08 2024 2:06PM [facility] 0304 - MRI LUMBAR SPINE WO/W IVCON [...] and assume there are 5 lumbar-type vertebrae. Behavioral Science Chair: [facility] Transcribe Date/Time: Jun 08 2024 3:55P Dictated by : BRENDA MUNOZ MD This examination was interpreted and the report reviewed and electronically signed by: BRENDA MUNOZ MD on Jun 08 2024 4:10PM EST [id number]^AGFA_IDC^SI^ACN [facility] THORACIC SPINE WO/W IVCONon 06-08-2024* * *Final Report* * * DATE OF EXAM: Jun 08 2024 2:06PM [facility] 0326 - MRI THORACIC SPINE WO/W IVCON [...] and assume there are 5 lumbar-type vertebrae. Behavioral Science Chair: [facility] Transcribe Date/Time: Jun 08 2024 3:55P Dictated by : BRENDA MUNOZ MD This examination was interpreted and the report reviewed and electronically signed by: BRENDA MUNOZ MD on Jun 08 2024 4:10PM EST [id number]^AGFA_IDC^SI^ACNCCFRadiology, Radiologist, - 06/08/2024 * * *Final Report* * * DATE OF EXAM: Jun 08 2024 2:06PM [facility] 0326 - MRI THORACIC SPINE WO/W IVCON [...] and assume there are 5 lumbar-type vertebrae. Behavioral Science Chair: [employer] (P) Transcribe Date/Time: Jun 08 2024 3:55P Dictated by : BRENDA MUNOZ MD This examination was interpreted and the report reviewed and electronically signed by: BRENDA MUNOZ MD on Jun 08 2024 4:10PM EST [id number]^AGFA_IDC^SI^ACN [facility] Panel InformationOrdered By: Radiologist Radiology on 08-54-0780JAJZSaint Mary's Hospital of Blue Springs Work Phone: No Panel Informationon 03-74-5843JQYVBLEWMM: 1. Suboptimal examination due to motion artifact. [...] and assume there are 5 lumbar-type vertebrae. Behavioral Science Chair: [facility] Transcribe Date/Time: Jun 08 2024 3:55P Dictated by : BRENDA MUNOZ MD This examination was interpreted and the report reviewed and electronically signed by: BRENDA MUNOZ MD on Jun 08 2024 4:10PM [facility] DIVISION OF RADIOLOGYRadiology Study observation (narrative)[facility] Radiology Study observation (narrative)[facility]OMS HealthcareCCF CMP (CMP) (FOR REMOTE [facility] USE)on 18-77-8603Rttkpiq [Mass/Vol]2.3 g/dLLow3.4 - 5.0 g/dLNOWV Healthcare ALBUMIN GLOBULIN RATIO0.5NOWV HealthcareALP [Catalytic activity/Vol]128 U/LHigh 46 - 116 [...] 2NOMS HealthcareGlobulin (S) [Mass/Vol]4.7 g/dLNOMS HealthcareGlucose [Mass/Vol]245 mg/nNGdur29 - 106 mg/dL N[facility]S HealthcareInterpretation and review of laboratory resultsAbnormalNOMS HealthcarePotassium [Moles/Vol]5.1 mmol/L3.5 - 5.1 mmol/LNOMS HealthcareProtein [Mass/Vol]7 g/dL6.4 - 8.2 g/dLNOMS HealthcareSodium [Moles/Vol]128 mmol/WQjf895 - 145 mmol/LNOMS HealthcareTBH EGFR-NON AF AUDWFGLJ67Xdm>=60 mL/min/1.73m 2NOMS HealthcareUrea nitrogen [Mass/Vol]26 mg/dLHigh7.0 - 18.0 mg/dLNOMS Healthcare Urea nitrogen/Creatinine [Mass ratio]14.9 mg/mgNOMS HealthcareCLINISYNCNOMS HealthcareNo Panel InformationOrdered By: Radiologist Radiology on 06-04-2024 [facility] [employer] Work Phone: US PELVIS LTDon 06-04-2024* * *Final Report* * * DATE OF EXAM: Jun 04 2024 11:39AM [facility] [employer] / PROCEDURE REASON: Unilateral inguinal hernia without [...] No fat or bowel containing inguinal hernia. Behavioral Science Chair: [facility]ITALPatricia Transcribe Date/Time: Jun 04 2024 1:11P Dictated by : SONNY TRAN MD This examination was interpreted and the report reviewed and electronically signed by: SONNY TRAN MD on Jun 04 2024 2:55PM EST [id number]^AGFA_IDC^SI^ACNCCFRadiology, Radiologist, - 06/04/2024 * * *Final Report* * * DATE OF EXAM: Jun 04 2024 11:39AM [facility] [employer] / PROCEDURE REASON: Unilateral inguinal hernia [...] No fat or bowel containing inguinal hernia. Behavioral Science Chair: SRINI Transcribe Date/Time: Jun 04 2024 1:11P Dictated by : SONNY TRAN MD This examination was interpreted and the report reviewed and electronically signed by: SONNY TRAN MD on Jun 04 2024 2:55PM EST [id number]^AGFA_IDC^SI^ACN [facility] HealthcareRadiology Study observation (narrative)[facility] HealthcareUS Pelvis limitedon 80-38-3948TXGNGTAQWU: Extension of pelvic ascites through the inguinal canal and distally along the spermatic cord. No fat or bowel containing inguinal hernia. Behavioral Science Chair: SRINI Transcribe Date/Time: Jun 04 2024 1:11P Dictated by : SONNY TRAN MD This examination was interpreted and the report reviewed and electronically signed by: SONNY TRAN MD on Jun 04 2024 2:55PM [facility] DIVISION OF RADIOLOGY* * *Final Report* [...] LIGAMENT: Normal in appearance. DIVISION OF RADIOLOGYProvider, [facility] [place] - 06/04/2024 * * *Final Report* * [...] No fat or bowel containing inguinal hernia. Behavioral Science Chair: [facility] Transcribe Date/Time: Jun 04 2024 1:11P Dictated by : SONNY TRAN MD This examination was interpreted and the report reviewed and electronically signed by: SONNY TRAN MD on Jun 04 2024 2:55PM [facility] HospitalRadiology Study observation (narrative)[facility] HospitalBODY FLUID CELL COUNTOrdered By: Billie Wilson on 1953EHD Manual cnt (Body fld) [#/Vol]/uLNINF - 2000 /uLLouis Stokes Cleveland VA Medical Centerpecimen source Nom (Body fld) AbdomenKettering Health Greene Memorial Manual cnt (Body fld) [#/Vol]119 /uLNINF - 1000 /uL [facility] BODY FLUID CELL COUNTon 74-85-0672LXB CLARITY SPECSlightly CloudyAbnormalClearKansas City VA Medical Center COLOR FLDYellowYelCrozer-Chester Medical Center RBC # FLD MANUAL<2000NINF - 2000 /uLNOMS HealthcareCCF SPECIMEN SOURCE FLD AbdomenKansas City VA Medical Center WBC # FLD [id number] /uLNINF - 1000 /[facility] Specimen Type: FLUID SPECIMEN Ordering Facility: [facility] Address: [address] [place] [address] Original Ordering Provider: KATHY VAUGHNCLINISYNCGuidance for paracentesis and insertion of tube of Peritoneumon 24-14-4565Crpd: Loyd Blandon Patient presents for a Paracentesis. Indication for Procedure: Ascites INFORMED CONSENT Loyd Blandon Medical Record: [id number] Procedure: Paracentesis The risks, benefits and anticipated [...] Vaughn APRN.CNP Procedure performed by Kathy Vaughn APRN.SWIMMING COACH OR INSTRUCTOR Medication: 2% Lidocaine 10cc The patient was [...] tube of PeritoneumOrdered By: Kathy Vaughn on 49-30-7969Cgkthgdii [facility] Work Phone: Radiology Study observation (narrative)[facility] Work Phone: Laboratory - Specimen informationOrdered By: Billie Wilson on 90-79-8129Krtipmq (Unsp spec)Slightly CloudyAbnormalClearCleveland ClinicColor (Body fld)YellowYellowCleveland ClinicNo Panel Informationon 48-75-8134Nlqqjpjsxzyoni and review of laboratory resultsAbMcKenzie Memorial Hospital NOMS HealthcareUS PARACENTESIS (POC) DDI USE ONLYon 91-42-4309Zgecigbax ClinicXR Chest PA and Lateralon 50-80-7102HIPQCWLXMF: Moderate to large right-sided pleural effusion, increased in size compared to the prior chest radiograph exam. Adjacent opacity at the right lung base is probably due to atelectasis although superimposed pneumonia/aspiration is possible. Trace left pleural effusion. Behavioral Science Chair: PSCB Transcribe Date/Time: May 23 2024 1:39P Dictated by : MORALES CARROLL MD This examination was interpreted and the report reviewed and electronically signed by: MORALES CARROLL MD on May 23 2024 1:41PM [facility] DIVISION OF RADIOLOGY* * *Final Report* [...] Clips overlie the upper abdomen. [facility]YProvipike [facility], [facility] [place] - 05/23/2024 * * *Final Report* * [...] pneumonia/aspiration is possible. Trace left pleural effusion. Behavioral Science Chair: SRINI Transcribe Date/Time: May 23 2024 1:39P Dictated by : MORALES CARROLL MD This examination was interpreted and the report reviewed and electronically signed by: MORALES CARROLL MD on May 23 2024 1:41PM EST [facility] HospitalRadiology Study observation (narrative)[facility] HospitalXR Chest PA and LateralOrdered By: Ccf Provider on 23-30-3404Puidssjyh ClinicALL CBC WITH AUTO DIFFon 23-30-9012JRCGHXIKP ABSOLUTE AUTO0.1NOMS HealthcareBasophils/100 WBC (Bld)1.1 %0.2 - 2.0 %NOMS HealthcareEosinophils/100 WBC (Bld)5.4 %0.9 - 7.0 %NOMS HealthcareErythrocyte distribution width (RBC) [Ratio]14.2 %11.0 - 15.0 % N[facility]S HealthcareHematocrit (Bld) [Volume fraction]37.2 %Low42.0 - 54.0 %[facility] HealthcareHemoglobin (Bld) [Mass/Vol]12.7 g/dLLow14.0 - 18.0 g/dLNONevada Regional Medical Center IMMATURE GRANULOCYTES ABS AUTO0.04HighNOWV HealthcareImmature granulocytes/100 WBC (Bld)0.8 %High0.0 - 0.5 %[facility] HealthcareInterpretation and review of laboratory resultsAbnormalNOWV HealthcareLYMPHOCYTES ABSOLUTE AUTO0.7LowNOMS HealthcareLymphocytes/100 WBC (Bld)12.5 %Low20.5 - 60.0 %[facility] HospitalH (RBC) [Entitic mass]34.4 avJcml20.9 - 34.0 pgNONevada Regional Medical CenterMCHC (RBC) [Mass/Vol]34.1 g/dL29.9 - 35.2 g/dLSaint Mary's Hospital of Blue SpringsMCV (RBC) [Entitic vol]100.8 eFWgmq78.0 - 94.0 fLNOWV HealthcareMONOCYTES ABSOLUTE AUTO0.8NOWV Healthcare Monocytes/100 WBC (Bld)14.8 %High1.7 - 12.0 %NOM HealthcareNEUTROPHILS ABSOLUTE AUTO3.4NOMS HealthcareNeutrophils/100 WBC (Bld)65.4 %43.0 - 75.0 %[facility] HealthcarePlatelet mean volume (Bld) [Entitic vol]10.5 fL9.5 - 13.5 fLNOWV HealthcareTBH EO #0.3NOMS HealthcareTBH VYU665JWRT HealthcareTB RBC3.69LowNOMS Georgetown Behavioral HospitalTB WBC5.2NOMS HealthcareCLINISYNCNOMS HealthcareOrders Onlyon 58-83-8603Muohjh [id number] Loyd Blandon 1955 M Date Provider Department Center 05/08/2024 1065-JOSH JANE [facility] Pavi No family history on fileNormalUniversity of [facility] CypressOrders Only [id number] JamiaLoyd rivera 1955 M Date Provider Department Center 05/08/202441051-UXYCDRENARD HAZEL GI Medical Pavi No family history on fileNormalUniversity of Hca [facility] CypressALBUMIN, BODY FLUIDOrdered By: Tejal Kidd on 32-66-7083Disnjxl (Body fld) [Mass/Vol]0.4 g/dLSee CommentGrand Lake Joint Township District Memorial Hospitalment on above:Body Fluid Albumin may be [...] document C49A. JOEL Murrell: Clinical Laboratory Standards [place]: 2007. 2. Patience URIOSTEGUI. Serum to ascites albumin gradient. UpToDate. 2015. Accessed on July 29, 2015. This test was developed, and its performance characteristics determined by the [facility] Department of Pathology and Laboratory Medicine. It has not been cleared or approved by the FDA. The [facility] Department of Pathology and Laboratory Medicine is regulated under CLIA as qualified to perform high-complexity testing. This test is used for clinical purposes. It should not be regarded as investigational or for research. AMYLASE, BODY FLUIDon 17-98-2732Tverpqa (Body fld) [Catalytic activity/Vol]12 U/LSee CommentGrand Lake Joint Township District Memorial Hospitalment on above:PLEURAL FLUIDS: Amylase measurement in [...] document C49-A. JOEL Murrell: Clinical Laboratory Standards [place]; 2007. 3. Riky SHAW, Mckinley RC, Rose DJ. Use of cyst fluid CEA, CA19-9, and amylase for evaluation of pancreatic lesions. Clinical Biochemistry. 2009;42:1582-6780. This test was developed, and its performance characteristics determined by the [facility] Department of Pathology and Laboratory Medicine. It has not been cleared or approved by the FDA. The [facility] Department of Pathology and Laboratory Medicine is regulated under CLIA as qualified to perform high-complexity testing. This test is used for clinical purposes. It should not be regarded as investigational or for research. Albumin (Body fld) [Mass/Vol]Ordered By: Tejal Kidd on 31-47-9642Yazvm Nom (Body fld)ASCITES FLUIDWVUMedicine Harrison Community HospitalAmylase (Body fld) [Catalytic activity/Vol]on 13-33-3301Pwtrc Nom (Body fld)ASCITES FLUIDWVUMedicine Harrison Community HospitalBODY FLUID CELL COUNTOrdered By: Austin Moore on 37-20-1944Obepppu (Unsp spec)ClearClearCleveland ClinicClarity (Unsp spec)Not IndicatedClearCleveland ClinicColor (Body fld)YellowYellowCleveland ClinicColor (Body fld)Not IndicatedYelMercy Health Lorain Hospital Manual cnt (Body fld) [#/Vol] /uLNINF - 2000 /[facility] Memorialpecimen source Nom (Body fld)AbdomenKettering Health Greene Memorial Manual cnt (Body fld) [#/Vol]111 /uLNINF - 1000 /uLSt. Francis HospitalGuidance for paracentesis and insertion of tube of Peritoneumon 32-51-9806Vkgf: Loyd Hendersonenig Patient presents for a Paracentesis. Indication for Procedure: Ascites INFORMED CONSENT Loyd Blandon Medical Record: [id number] Procedure: Paracentesis The risks, benefits and anticipated [...] associated with the procedure. Rosalinda Benoit APRN.CNP PROVATIONTrihealth Bethesda Butler HospitalRadiology Study observation (narrative)[facility] PROTEIN, BODY FLUIDon 30-56-2035Pjcdcdo (Body fld) [Mass/Vol]0.9 g/dLSee Comment [facility] HospitalComment on above:Serous fluids: Effusions are the [...] Fluids in Clinical Chemistry Approved Guideline. CLSI etxihadtL49K. JOEL Murrell: Clinical Laboratory Standards [place]: 2007. Protein (Body fld) [Mass/Vol]on 16-84-4124Wshkdizmf ClinicUS PARACENTESIS (POC) DDI USE ONLYon 78-52-0491Ejepbaije ClinicCT Liver W contrast Syed 04-29-2024 IMPRESSION: MORPHOLOGIC FINDINGS OF CIRRHOSIS AND PORTAL HYPERTENSION. 1.0 CM LI-RADS 5/OPTN 5 LESION IN THE DOME OF SEGMENT VIII WITHOUT TUMOR THROMBUS. NO EVIDENCE OF METASTATIC DISEASE. MASSIVE ASCITES. MASSIVE RIGHT PLEURAL EFFUSION WITH AT LEAST SEGMENTAL RIGHT LUNG COLLAPSE. Behavioral Science Chair: PSCB Transcribe Date/Time: Apr 29 2024 9:30P Dictated by : MORALES ADAMS MD This examination was interpreted and the report reviewed and electronically signed by: MORALES ADAMS MD on Apr 29 2024 11:09PM [facility] DIVISION OF RADIOLOGY* * *Final Report* * * DATE OF EXAM: Apr 29 2024 5:02PM [facility] 0548 - CT LIVER W IVCON / [...] LI-RADS Category: LR-5/OPTN class 5 (definitely HCC) Elafq-yf-mgdk: absent. No other focal hepatic lesion. Biliary: [...] least) right lower lung collapse. Localizer images: Mottler Operator image shows small volume of expanded lung in the right apex. DIVISION OF RADIOLOGYProvider, [facility] [place] - 04/29/2024 * * *Final Report* * * DATE OF EXAM: Apr 29 2024 5:02PM [facility] 0548 - CT LIVER W IVCON / [...] LI-RADS Category: LR-5/OPTN class 5 (definitely HCC) Whsfi-ed-mgbp: absent. No other focal hepatic lesion. Biliary: [...] least) right lower lung collapse. Localizer images: Mottler Operator image shows small volume of expanded lung in the right apex. IMPRESSION IMPRESSION: MORPHOLOGIC FINDINGS OF CIRRHOSIS AND PORTAL HYPERTENSION. 1.0 CM LI-RADS 5/OPTN 5 LESION IN THE DOME OF SEGMENT VIII WITHOUT TUMOR THROMBUS. NO EVIDENCE OF METASTATIC DISEASE. MASSIVE ASCITES. MASSIVE RIGHT PLEURAL EFFUSION WITH AT LEAST SEGMENTAL RIGHT LUNG COLLAPSE. Behavioral Science Chair: SRINI Transcribe Date/Time: Apr 29 2024 9:30P Dictated by : MORALES ADAMS MD This examination was interpreted and the report reviewed and electronically signed by: MORALES ADAMS MD on Apr 29 2024 11:09PM EST [facility] HospitalRadiology Study observation (narrative)[facility] Liver W contrast IVOrdered By: Ccf Provider on 55-56-9656Bcnwwgnci ClinicUS PARACENTESIS ABD W/IMAGEon 36-90-1680C[address] [address] Ultrasound Report Signed Patient: LOYD BLANDON MR#: [id number] : 1955 Acct:[id number] Age/Sex: 68 / M ADM Date: 04/03/24 Loc: US Attending Dr: Non-Staff Physician Eriberto Ordering Physician: PhysicianYolandaStaff Eriberto Date of Service: 04/03/24 Procedure(s): US paracentesis abd w/image Accession Number(s): [id number] cc: SANJAY ROBLEDO ; Physician,YolandaStaff Eriberto [address] [place] [address] Patient Name: LOYD BLANDON MRN: [id number] date: 1955 Sex: M Assigned Patient Location: US Current Patient Location: US Accession/Order Number: [id number] Exam Date: 04/03/2024 07:30 Report Date: 04/03/2024 [...] Signed By: 04/03/24 1108 DD/ 110 TD/TT: Behavioral Science Chair:TBHRadiology, Radiologist, - 04/03/2024 [place] [address] Ultrasound Report Signed Patient: LOYD BLANDON MR#: [id number] : 1955 Acct:[id number] Age/Sex: 68 / M ADM Date: 04/03/24 Loc: US Attending Dr: Non-Staff Physician Eriberto Ordering Physician: Maddy Duarte M.D. Date of Service: 04/03/24 Procedure(s): US paracentesis abd w/image Accession Number(s): [id number] cc: SANJAY ROBLEDO ; Physician,YolandaStaff Eriberto The [address] [address] Patient Name: LOYD BLANDON MRN: [id number] date: 1955 Sex: M Assigned Patient Location: US Current Patient Location: US Accession/Order Number: [id number] Exam Date: 04/03/2024 07:30 Report Date: 04/03/2024 [...] Signed By: 04/03/24 110 DD/ 110 TD/TT: Behavioral Science Chair: EDDIE HealthcareRadiology Study observation (narrative)EDDIE HealthcareUS PARACENTESIS ABD W/IMAGEOrdered By: Radiologist Radiology on 20-83-6065ZMCC Healthcare Work Phone: US PARACENTESIS ABD W/IMAGEon 73-83-8950D[address] [address] Ultrasound Report Signed Patient: LOYD BLANDON MR#: [id number] : 1955 Acct:[id number] Age/Sex: 68 / M ADM Date: 03/11/24 Loc: US Attending Dr: Non-Staff Physician Eriberto Ordering Physician: PhysicianBryanna-Staff Eriberto Date of Service: 03/11/24 Procedure(s): US paracentesis abd w/image Accession Number(s): [id number] cc: SANJAY ROBLEDO ; Physician,Bryanna-Staff Eriberto [place] [id number] Patient Name: LOYD BLANDON MRN: [facility]:[id number] date: 1955 Sex: M Assigned Patient Location: US Current Patient Location: Accession/Order Number: [id number] Exam Date: 03/11/2024 12:48 Report Date: 03/12/2024 [...] M.D. Signed By: 03/12/2446 DD/ 3 TD/TT: Behavioral Science Chair:TBHRadiology, Radiologist, - 03/12/2024 The [place] [id number] Ultrasound Report Signed Patient: LOYD BLANDON MR#: [id number] : 1955 Acct:[id number] Age/Sex: 68 / M ADM Date: 03/11/24 Loc: US Attending Dr: Non-Staff Physician Eriberto Ordering Physician: Physician,Non-Staff Eriberto Date of Service: 03/11/24 Procedure(s): US paracentesis abd w/image Accession Number(s): [id number] cc: SANJAY ROBLEDO ; Physician,Non-Staff Eriberto The [place] [phone] Patient Name: LOYD BLANDON MRN: [id number] date: 1955 Sex: M Assigned Patient Location: US Current Patient Location: Accession/Order Number: [id number] Exam Date: 03/11/2024 12:48 Report Date: 03/12/2024 [...] M.D. Signed By: 03/12/2446 DD/ 3 TD/TT: Behavioral Science Chair: EDDIE HealthcareRadiology Study observation (narrative)EDDIE MixUS PARACENTESIS ABD W/IMAGEOrdered By: Radiologist Radiology on 61-80-8856VRCJ [employer] Work Phone: [phone] [phone] patient's had a concern regarding increasing Coreg [...] MD Gastroenterology FellowNormalUniversity of [facility] CypressTelephoneon [id number] Loyd Blandon 1955 [facility] Provider Department [place] 03/11/2024 151[facility]Y [facility]ALL [facility] No family history on fileNormalUniversity Riverside Methodist Hospital37on 36-67-822546Verxxm increase the coreg dose to 6.25 mg in the am and 3.125 mg in the pm Do the Chest Xray now and if there are concerns for fluid accumulation, go to the ED Do the labs ordered todayNormalUniWood County HospitalCB WITH AUTO DIFFERENTIALon 00-70-0058Xnxppycur (Bld) [#/Vol]0.05 10*3/uLNormal0.00-0.20 [facility] HospitalComment on above:Performed By: #### [id number] #### [facility] (BEAK[facility]) [address] [place], [place] [address]Hbxduemow/100 WBC (Bld)1.1 %High0.0-1.0UnDetwiler Memorial HospitalComment on above:Performed By: #### [id number] #### [facility] (BEAKER) [address] [place], [place] [address]Eoipbdpgumr (Bld) [#/Vol]0.22 10*3/uLNormal0.00-0.50UnDetwiler Memorial HospitalComment on above:Performed By: #### [id number] #### [facility] ([facility]) [address] [place] [address]Alivhawkeyf/100 WBC (Bld)4.8 %Normal0.0-6.0UnDetwiler Memorial HospitalComment on above:Performed By: #### [id number] #### [facility] ([facility]) [address] [facility]ITALLe[address] [place]ANOJ[place], [place] [address]Bugmhemgbbe distribution width (RBC) [Ratio]16.4 %High11.5-15.0 [facility] HospitalComment on above:Performed By: #### [id number] #### [facility] ([facility]) [address] [place], [place] [address]EUIKEKTKKXF MEAN CORPUSCULAR HEMOGLOBIN CONCENTRATION (G/DL) BY RRGRWWIZG68.1 g/pPYvybvm61.0-35.0UnDetwiler Memorial HospitalComment on above:Performed By: #### [id number] #### [facility] ([facility]) [address] [place]OJ[place], [place] [address]Omtosfwcbn (Bld) [Volume fraction]37.5 %Low39.0-55.0UnDetwiler Memorial HospitalComment on above:Performed By: #### [id number] #### [facility] ([facility]) [address] [place]JANO[place], [place] [address]Iefeovjfue (Bld) [Mass/Vol]12.8 g/dLLow13.0-17.0UnDetwiler Memorial HospitalComment on above:Performed By: #### [id number] #### [facility] ([facility]) [address] [place], [place] [address]Nchvgaog granulocytes (Bld) [#/Vol]0.02 10*3/uLNormal0.00-0.20 [facility] HospitalComment on above:Performed By: #### [id number] #### [facility] ([facility]) [address] [facility] [place], [place] [address]Kjgcwbkc granulocytes/100 WBC (Bld)0.4 %Normal0.0-1.0UnDetwiler Memorial HospitalComment on above:Performed By: #### [id number] #### [facility] ([facility]) [address] [place], [place] [address]Twzauugdcfi (Bld) [#/Vol]0.71 10*3/uLLow1.20-4.00UnDetwiler Memorial HospitalComment on above:Performed By: #### [id number] #### [facility] ([facility]) [address] [place], [place] [address]Qjdjyedkcua/100 WBC (Bld)15.6 %Low20.0-45.0UnDetwiler Memorial HospitalComment on above:Performed By: #### [id number] #### [facility] ([facility]) [address] [place], [place] [address]JRY (RBC) [Entitic mass]34.3 mfGboz26.0-33.0UnDetwiler Memorial HospitalComment on above:Performed By: #### [id number] #### [facility] ([facility]) [address] [facility] [place], [place] [address]LEA (RBC) [Entitic vol]100.5 zYIrox08.0-98.0UnDetwiler Memorial HospitalComment on above:Performed By: #### [id number] #### [facility] ([facility]) [address] [facility]ITAL[facility] [place], [place] [address]Alvpzmpbr (Bld) [#/Vol]0.57 10*3/uLNormal0.10-1.00UnDetwiler Memorial HospitalComment on above:Performed By: #### [id number] #### [facility] ([facility]) [address] [facility] [place] [place], [place] [address]Ttdmgmjxf/100 WBC (Bld)12.5 %High5.0-12.0UnDetwiler Memorial HospitalComment on above:Performed By: #### [id number] #### [facility] ([facility]) [address] [place] [address]Ebuxasskqqa (Bld) [#/Vol]2.99 10*3/uLNormal1.60-7.60UnDetwiler Memorial HospitalComment on above:Performed By: #### [id number] #### [facility] ([facility]) [address] [place] [address]Mhlsnhiowgs/100 WBC (Bld)65.6 %Pkffxi06.0-72.0UnDetwiler Memorial HospitalComment on above:Performed By: #### [id number] #### [facility] ([facility]) [address] [place] [address]IFPQ (PER 100 WBCS) BY AUTOMATED COUNT0.0 %Devpwm1BlbwwckfafDetwiler Memorial HospitalComment on above:Performed By: #### [id number] #### [facility] ([facility]) [address] [place] [address]GYSXZZYJW (10*3/UL) IN BLOOD AUTOMATED RJMWN455 10*3/uLNormal 150-400UnDetwiler Memorial HospitalComment on above:Performed By: #### [id number] #### [facility] ([facility]) [address] [place] [address]ALU (Bld) [#/Vol]3.73 10*6/uLLow4.20-5.70UnDetwiler Memorial HospitalComment on above:Performed By: #### [id number] #### [facility] ([facility]) [address] [place] [address]KAI (Bld) [#/Vol]4.56 10*3/uLNormal4.00-10.60UnDetwiler Memorial HospitalComment on above:Performed By: #### [id number] #### [facility] ([facility]) [address] [place] [address]HFIHNQPELMOTA METABOLIC PANELon 33-27-9223Bzhijim [Mass/Vol]3.0 g/dLLow3.5-5.7UnDetwiler Memorial HospitalComment on above:Performed By: #### [id number] ####[facility] ([facility]AKER)[address] [place], [place] [address]OLD [Catalytic activity/Vol]113 U/YOskv04-469PvfgyukqyrDetwiler Memorial Hospital Comment on above:Performed By: #### [id number] ####[facility] ([facility])[address] [place], [place] [address]RCX [Catalytic activity/Vol]28 U/LNormal7-52 [facility] HospitalComment on above:Performed By: #### [id number] ####[facility] ([facility])[address] [place], [place] [address]Eqtex gap [Moles/Vol]10 mmol/LNormal7-20UnDetwiler Memorial HospitalComment on above:Performed By: #### [id number] ####[facility] ([facility])[address] [place], [place] [address]JVE [Catalytic activity/Vol]48 U/RRioz30-60TwxxaffsgsDetwiler Memorial HospitalComment on above:Performed By: #### [id number] ####[facility] ([facility])[address] [place], [place] [address]Rezqtjtol [Mass/Vol]1.7 mg/dLHigh 0.3-1.0UnDetwiler Memorial HospitalComment on above:Performed By: #### [id number] ####[facility] ([facility])[address] [place], [place] [address]Vmqtvkt [Mass/Vol]8.8 mg/dLNormal8.6-10.3UnDetwiler Memorial HospitalComment on above:Performed By: #### [id number] ####[facility] (BEAKER)[address] [place], [place] [address]Lbajdiwm [Moles/Vol]101 mmol/CUxpkjg17-787ZoawqvyklrDetwiler Memorial HospitalComment on above:Performed By: #### [id number] ####[facility] (BEAKER)[address] [place], [place] [address]ZX4 [Moles/Vol]24 mmol/LNormal 21-31UnDetwiler Memorial HospitalComment on above:Performed By: #### [id number] ####[facility] ([facility])[address] [place] [address]Zblhktlkou [Mass/Vol]1.20 mg/dLNormal0.70-1.30UnDetwiler Memorial HospitalComment on above:Performed By: #### [id number] ####[facility] ([facility])[address] [place], [place] [address]CXUDFTFYZG FILTRATION RATE ML/MIN/1.73 SQ M.SKBOPVSDB95.1 mL/min/1.73m*2Normal>60.0UnDetwiler Memorial HospitalComment on above: Result Comment: [facility]???s estimated glomerular filtration rate (eGFR) [...] anyone group of individuals.Performed By: #### [id number] ####[facility] ([facility])[address] [facility] CENTERMaritzaGL[place], [place] [address]Juwipei [Mass/Vol]184 mg/pIMorf14-351OsfgfmqpgtDetwiler Memorial HospitalComment on above:Performed By: #### [id number] ####[facility] ([facility])[address] [place], [place] [address]Lnragehpr [Moles/Vol]4.4 mmol/L Normal3.5-5.1UnDetwiler Memorial HospitalComment on above:Performed By: #### [id number] ####[facility] ([facility])[address] [place] [address] Protein [Mass/Vol]7.0 g/dLNormal6.0-8.3UnDetwiler Memorial Hospital Comment on above:Performed By: #### [id number] ####[facility] (BEAKER)[address] [place], [place] [address]Mncjoy [Moles/Vol]131 mmol/RHzz467-799SekbirwvfgDetwiler Memorial HospitalComment on above:Performed By: #### [id number] ####[facility] (BEAKER)[address] [place], [place] [address]Jyyo nitrogen [Mass/Vol] 18 mg/dLNormal7-25UnDetwiler Memorial HospitalComment on above:Performed By: #### [id number] ####[facility] ([facility])[address] [place] [address] UREA NITROGEN/CREATININE (MASS RATIO) IN SER/PLAS15.0NormalUniWood County HospitalComment on above:Performed By: #### [id number] ####[facility] (BEAKER)[address] [place] [address]Gzfut [id number] Loyd Blandon 1955 M Date Provider Department Center 03/08/2024 2244-[facility] MP LAB RESOURCE MP DRAW Medical Pavi No family history on fileNormalUniWood County HospitalOffice Visiton 38-65-5869Ifnigt-up [id number] Loyd Blandon 1955 M Date Provider Department Center 03/08/2024 298-[facility] GI Medical Pavi No family history on file Level of Service:35914 [place] OFFICE/OUTPATIENT ESTABLISHED HIGH MDM 40 MIN (GC) Reason for Visit and Comments: Follow-up [029580] Cirrhosis [239]NormalUnDetwiler Memorial HospitalPROTIME-INRon 03-08-2024 INR IN PPP BY COAGULATION ASSAY1.80Fjlk0.90-1.10UnDetwiler Memorial HospitalComment on above:Result Comment: ACCCP RECOMMENDED INR FOR [...] OPTIMAL THERAPEUTIC RANGE. CHEST 1995;108:231S-246S.Performed By: #### [id number] ####[facility] OneBreathSI[facility])[address] [place], [place] [address]HLCMYSJGGRL TIME (PT) IN PPP BY COAGULATION ASSAY16.6 OmztrhuIowa62.3-14.8UnDetwiler Memorial HospitalComment on above:Performed By: #### [id number] ####[facility] One[facility]athSI[facility])[address] [place], [place] [address]MAH CULTUREon 28-60-7641TEC CULTURENo growth at 42 daysNormalUniWood County HospitalComment on above: Performed By: #### [id number] ####[facility] ([facility])[address] [place], [place] [address]ZTQ STAINNo acid fast bacilli seenNormalUniWood County HospitalComment on above:Performed By: #### [id number] ####[facility]ath[facility])[address] [place], [place] [address]EAVGBBO, BODY FLUIDon 02-20-2024 AMYLASE (U/L) IN BODY FLUID18 U/LNormalUnDetwiler Memorial Hospital Comment on above:Result Comment: The reference range and other method performance specifications have not been established for this test in fluids. the test result should be integrated into the clinical context for in terpretation.Performed By: #### [id number] ####[facility]ath[facility])[address] [place], [place] [address]ORSX FLUID CELL DIFFERENTIALon 47-35-0015JRNUEJQIZ TOTAL PER COUNTED LEUKOCYTES IN BODY FLUID BY MANUAL COUNTNormalUniversity of [facility] CypressCombronson lakeview hospital on above:Order Comment: Differential performed on cytospinPerformed By: #### [id number] ####[facility] (BEAKER)[address] [place], [place] [address]BOIKQ COUNTED TOTAL (#) IN BODY ZRRPV529GfmwvpDnnazwzhum of [facility] CypressCombronson lakeview hospital on above:Order Comment: Differential performed on cytospinPerformed By: #### [id number] ####[facility] (AKER)[address] [place], [place] [address]UKOLOKQGHPX TOTAL PER COUNTED LEUKOCYTES IN BODY FLUID BY MANUAL COUNTNormalUniversity of [facility] CypressCombronson lakeview hospital on above:Order Comment: Differential performed on cytospinPerformed By: #### [id number] ####[facility] ([facility])[address] [place], [place] [address]LWVOTLATQDM TOTAL PER COUNTED LEUKOCYTES IN BODY FLUID BY MANUAL HHPDT13UrwlmdNsxjpjuifjAvita Health System Galion HospitalCombronson lakeview hospital on above:Order Comment: Differential performed on cytospin Performed By: #### [id number] ####[facility] (AKER)[address] [place], [place] [address]GQINMCJBPDD CELLS TOTAL PER COUNTED LEUKOCYTES IN BODY FLUID BY MANUAL LMEF12QxmvclRhfmofmkha of [facility] CypressCombronson lakeview hospital on above:Order Comment: Differential performed on cytospinPerformed By: #### [id number] ####[facility] (BEAKER)[address] [place], [place] [address]ELRZNICEC+MACROPHAGES TOTAL PER COUNTED LEUKOCYTES IN BODY FLUID BY MANUALNormalUniversity of [facility] CypressCombronson lakeview hospital on above:Order Comment: Differential performed on cytospin Performed By: #### [id number] ####[facility] (BEAKER)[address] [place], [place] [address]LKHCJQAABXB TOTAL PER COUNTED LEUKOCYTES IN BODY FLUID BY MANUAL CJHNG6XeenozIsbqawxcgpAvita Health System Galion HospitalCombronson lakeview hospital on above:Order Comment: Differential performed on cytospinPerformed By: #### [id number] ####[facility] (BEAKER)[address]OCRICHT[address] REHABILITATION CENTERMaritzaGLENCOE, [place] [address]WXBGJ CELLS BODY FLUID (MANUAL)NormalUnDetwiler Memorial HospitalComment on above:Order Comment: Differential performed on cytospinPerformed By: #### [id number] ####[facility] ([place])[address] [place] [id number] FLUID CULTUREon 02-20-2024 Bacteria identified Cx Nom (Unsp spec)No growth at 5 daysNormalUniWood County HospitalComment on above:Performed By: #### [id number] ####[facility] ([place])[address] DARIUSCRICHTON REHABILITATION [place]Mar[place] [id number] STAIN RESULTNormal [facility]ernsey Memorial HospitalComment on above:Result Comment: Polymorphonuclear leukocytes No organisms seen Cytocentrifuge samplePerformed By: #### [id number] ####[facility] ([place])[address] [facility]za [place] [address]KWZyk 43-16-9786Viyqgmfucui distribution width (RBC) [Ratio]16.0 %High11.5-15.0UnDetwiler Memorial HospitalComment on above:Performed By: #### [id number] ####[facility] ([facility])[address] [facility]CR[facility]HABILITATION CENTERMaritzaGLENCOE, [place] [address]YGGWKQSAZTJ MEAN CORPUSCULAR HEMOGLOBIN CONCENTRATION (G/DL) BY ZZKEQDJCY69.2 g/yUUmvaqh40.0-35.0UnDetwiler Memorial HospitalComment on above:Performed By: #### [id number] ####[facility] ([facility])[address] [place], [place] [address]Grxljystbn (Bld) [Volume fraction]33.6 %Low39.0-55.0UnDetwiler Memorial HospitalComment on above: Performed By: #### [id number] ####[facility] ([facility])[address] [place], [place] [address]Nwnaktpnhz (Bld) [Mass/Vol]11.5 g/dLLow13.0-17.0UnDetwiler Memorial HospitalComment on above:Performed By: #### [id number] ####[facility] ([facility])[address] [address]OTDJNDST PLATELET FRACTION %1.7 %Normal0.8-6.3UnDetwiler Memorial HospitalComment on above: Performed By: #### [id number] ####[facility] ([facility])[address] [address]VEH (RBC) [Entitic mass]34.0 poIkpl99.0-33.0UnDetwiler Memorial HospitalComment on above:Performed By: #### [id number] ####[facility] ([facility])[address] [place] [address]YVX (RBC) [Entitic vol] 99.4 tQMpjp51.0-98.0UnDetwiler Memorial HospitalComment on above: Performed By: #### [id number] ####[facility] ([facility])[address] [place] [address]KAPCPRLHL (10*3/UL) IN BLOOD AUTOMATED FOJNR015 10*3/uLLow 150-400UnDetwiler Memorial HospitalComment on above:Performed By: #### [id number] ####[facility] ([facility])[address] [place] [address]OPI (Bld) [#/Vol]3.38 10*6/uLLow4.20-5.70UnDetwiler Memorial HospitalComment on above:Performed By: #### [id number] ####[facility] ([facility])[address] [place] [address]FIM (Bld) [#/Vol]4.26 10*3/uLNormal4.00-10.60UnDetwiler Memorial HospitalComment on above:Performed By: #### [id number] ####[facility] ([facility])[address] [place] [address]BPDNONCDHUL, BODY FLUIDon 35-40-2156NONQUQXSUNX (MG/DL) IN BODY FLUID<25NormalUniversAvita Health System Galion HospitalComment on above:Performed By: #### [id number] #### [facility] ([facility]) [address] [place], [place] [address]SBUVHXFUBIBLT METABOLIC PANELon 59-57-9963Otwkydg [Mass/Vol]2.6 g/dLLow3.5-5.7UnDetwiler Memorial HospitalComment on above:Performed By: #### [id number] #### [facility]) [address] [place] [place], [place] [address]POD [Catalytic activity/Vol]89 U/UMbsbgs69-420GsunqcwxgcDetwiler Memorial HospitalComment on above:Performed By: #### [id number] #### [facility] ([facility]) [address] [place] [place], [place] [address]BCB [Catalytic activity/Vol]20 U/LNormal7-52UnDetwiler Memorial HospitalComment on above:Performed By: #### [id number] #### [facility] ([facility]) [address] [place], [place] [address]Aravp gap [Moles/Vol]8 mmol/LNormal7-20UnDetwiler Memorial HospitalComment on above:Performed By: #### [id number] #### [facility] ([facility]) [address] [place], [place] [address]ZYO [Catalytic activity/Vol]35 U/RFbenke13-87FrfuaabqwvDetwiler Memorial HospitalComment on above:Performed By: #### [id number] #### [facility] ([facility]) [address] [place], [place] [address]Norilmiio [Mass/Vol]1.5 mg/dLHigh0.3-1.0UnDetwiler Memorial HospitalComment on above:Performed By: #### [id number] #### [facility] ([facility]) [address] [place] [place], [place] [address]Hpymvlt [Mass/Vol]8.4 mg/dLLow8.6-10.3UnDetwiler Memorial HospitalComment on above:Performed By: #### [id number] #### [facility] ([facility]) [address] [place] [place], [place] [address]Vzyczguq [Moles/Vol]105 mmol/LTrstin76-305NdeghtahkuDetwiler Memorial HospitalComment on above:Performed By: #### [id number] #### [facility] ([facility]) [address] [place] [address]TU1 [Moles/Vol]25 mmol/ZCwqhew34-82EupldhqfpyDetwiler Memorial HospitalComment on above:Performed By: #### [id number] #### [facility] ([facility]) [address] [place] [address]Qgvorlpkpi [Mass/Vol]1.09 mg/dLNormal0.70-1.30UnDetwiler Memorial HospitalComment on above:Performed By: #### [id number] #### [facility] ([facility]) [address] [place] [address]TGVWGGJZXY FILTRATION RATE ML/MIN/1.73 SQ M.PITOMJWWF12.0 mL/min/1.73m*2Normal>60.0UnDetwiler Memorial HospitalComment on above: Result Comment: [facility]???s estimated glomerular filtration rate (eGFR) [...] group of individuals.Performed By: #### [id number] #### [facility] ([facility]) [address] [place] [address]Ikqfmdw [Mass/Vol]103 mg/qPUamt32-033SyxjteleqrDetwiler Memorial HospitalComment on above:Performed By: #### [id number] #### [facility] ([facility]) [address] [place] [address]Ftrfvmokq [Moles/Vol]4.3 mmol/LNormal3.5-5.1UnDetwiler Memorial HospitalComment on above:Performed By: #### [id number] #### [facility] ([facility]) [address] [place] [place], [place] [address]Ukfyqfg [Mass/Vol]6.0 g/dLNormal6.0-8.3UnDetwiler Memorial HospitalComment on above:Performed By: #### [id number] #### [facility] ([facility]) [address] [place], [place] [address]Yhszet [Moles/Vol]134 mmol/TXrz682-564NpztwhzxqmDetwiler Memorial HospitalComment on above:Performed By: #### [id number] #### [facility] ([facility]) [address] [place], [place] [address]Vamx nitrogen [Mass/Vol]20 mg/dLNormal7-25UnDetwiler Memorial HospitalComment on above:Performed By: #### [id number] #### [facility] ([facility]) [address] [place], [place] [address]CPYS NITROGEN/CREATININE (MASS RATIO) IN SER/PLAS18.3Normal [facility] Memorial HospitalComment on above:Performed By: #### [id number] #### [facility] ([facility]) [address] [place] [place], [place] [address]YBAXXVP, BODY FLUIDon 37-09-1936LXWVMCX (MG/DL) IN BODY DQKWO682 mg/dLNormalUniversAvita Health System Galion HospitalComment on above:Result Comment: The reference range and other method performance specifications have not been established for this test in fluids. the test result should be integrated into the clinical context for interpretation.Performed By: #### [id number] ####[facility] ([facility])[address] [place], [place] [address]SXnv 55-53-1982IYI&P reviewed. The patient was examined and there are no changes to the H&P.Normal [facility] HospitalLACTATE DEHYDROGENASEon 79-00-9966LDWYDEE DEHYDROGENASE (U/L) IN SER/PLAS BY LAC->PYR PKJ481 U/KWnpcou062-001ZoyvjcuuqxDetwiler Memorial HospitalComment on above:Performed By: #### [id number] #### [facility] ([facility]) [address] [place], [place] [address]GGKEORL DEHYDROGENASE, BODY FLUIDon 59-68-9051VCVOYFA DEHYDROGENASE (U/L) IN BODY FLUID BY LAC->PYR42 U/LNormalUnDetwiler Memorial HospitalComment on above:Result Comment: The reference range and other method performance specifications have not been established for this test in fluids. the test result should be integrated into the clinical context for in terpretation.Performed By: #### [id number] #### [facility] ([facility]) [address] [place], [place] [address]FAW-EFN CYTOLOGY - CELLULAR EXAMon 84-89-1471HET AP CASE REPORT NormalUnDetwiler Memorial HospitalComment on above:Result Comment: Non- gynecologic Cytology Case: [id number] Authorizing Provider: Aston Conner MD Collected: 02/20/2024 1014 Ordering Location: [address] Surgery Received: 02/20/2024 1208 Pathologist: Shireen Pat MD Specimen: Pleural fluid, right, collected per pulmonary residentPerformed By: #### [id number] ####[facility] ([facility])[address] [place], [place] [address]XKF AP CLINICAL INFORMATIONNormalUniWood County HospitalComment on above:Result Comment: Pleural effusionPerformed By: #### [id number] ####[facility] ([facility])[address] [place], [place] [address]PEM AP DIAGNOSIS COMMENTWhile no malignancy is identified in this sample, the specimen is hypocellular. Of note, only 18 mLof pleural fluid specimen was received in the lab, of which 5 mL was available for cytology testing. A specimen volume of at least 200 mL is recommended for cytology when available.NormalUnDetwiler Memorial HospitalComment on above:Performed By: #### [id number] ####[facility] ([facility])[address] [place], [place] [address]PMI AP GROSS DESCRIPTIONNormal Guernsey Memorial HospitalComment on above:Result Comment: 5 mL clear, yellow fluidPerformed By: #### [id number] ####[facility] ([facility])[address] [place] [address]NBI AP REPORT FINAL DIAGNOSIS NARRATIVENormal [facility]ernsey Memorial HospitalComment on above:Result Comment: A. Pleural fluid, right: - Negative for malignancy. - Hypocellular specimen. See comment. Performed By: #### [id number] ####[facility] ([facility])[address] [place] [address] NURSNOTEon 82-36-8465PSDIPMHSQnq positioning devices removed pt remains supine. NormalUnDetwiler Memorial HospitalPATHOLOGY REVIEWon 71-63-9513ILSWEFHHA REVIEW .Normal [facility] HospitalComment on above:Performed By: #### [id number] ####[facility] ([facility])[address] [place] [address]THAB GLUCOSE METER UNSOLICITED RESULTSon 66-69-3533Skzywwx [Mass/Vol]94 mg/fHHlopgm84-007 [facility] HospitalComment on above:Order Comment: Waived Testing in the ED is performed under the ED CLIA certificate #[id number].Result Comment: skirbyPerformed By: #### [id number] ####[facility] ([facility])[address] [place], [place] [address]OWZALQF, BODY FLUIDon 62-14-8569Uvwpfto (Body fld) [Mass/Vol]g/dLNormalUniversAvita Health System Galion HospitalComment on above:Result Comment: The reference range and other method performance specifications have not been established for this test in fluids. the test result should be integrated into the clinical context for interpretation.Performed By: #### [id number] ####[facility] ([facility])[address] [place], [place] [address]SSXPRWR, TOTALon 12-64-5477Phjaqtn [Mass/Vol]6.4 g/dLNormal6.0-8.3UnDetwiler Memorial HospitalComment on above:Performed By: #### [id number] #### [facility] ([facility]) [address] [place] [address]VSYHGJZ-FQZeh 75-13-8329TBE IN PPP BY COAGULATION ASSAY1.35High 0.90-1.10UnDetwiler Memorial HospitalComment on above:Result Comment: ACC RECOMMENDED INR FOR [...] OPTIMAL THERAPEUTIC RANGE. CHEST 1995;108:231S-246S.Performed By: #### [id number] ####[facility] ([facility])[address] [facility]OKET[facility] SO[facility] MEDICAL CENTERMaritzaGL[place]CO[place], [place] [address]QKRMDCZXGDT TIME (PT) IN PPP BY COAGULATION ASSAY16.6 ZwcvobwLbml15.3-14.8UnDetwiler Memorial HospitalComment on above:Performed By: #### [id number] ####[facility] ([facility])[address] [place], [place] [address]TUXATRENXJEKX, BODY FLUIDon 02-20-2024 TRIGLYCERIDES (MG/DL) IN BODY FLUID30 mg/dLNormalUniversAvita Health System Galion HospitalComment on above:Performed By: #### [id number] #### [facility] ([facility]) [address] [place] [address]17yu 74-14-870838Tse patient is Moderately Stable - Low risk [...] RN Outcome: Not Progressing 02/19/20242040 by Diane Zavaal RN Outcome: ProgressingNormalUniversity of Hca Houston Healthcare North CypressCONSULTon 99-02-9668JJJMXVB Attestation signed by Milagro Sheehan MD at [...] mg) by mouth two times daily. 12/27/23 Martio Oquendo MD spironolactone (Aldactone) 50 mg tablet Take 3 tablets (150 m (more content not included)...[facility] HospitalCONSULT Attestation signed by Aston Conner MD at [...] cirrhosis for which he follows up with [facility] gastroenterology. He has been struggling with recurrent ascites and has undergone multiple paracentesis over the past many weeks. He experiences dyspnea both at rest and over exertion for the past [address] imaging he was found to have large right-sided pleural effusion for which he underwent thoracentesis by supervisory aide at [facility]. Patient reports that his dyspnea got better/relieved for 1 day and he became symptomatic again after the fluid got reaccumulated. Today patient came to the [facility] hospital for an EGD he is accompanied [...] on file Years of (more content not included)...[facility] 40-44-6734TJ Attestation signed by Milagro Sheehan MD at 02/20/2024 12:40 PM I saw and evaluated the patient. I reviewed the resident's/fellow's note and agree with the findings and plan documents in the resident's/fellow's note Initial Gastroenterology/Hepatology Consultation Note IDENTIFYING DATA PATIENT: Loyd Blandon ADMIT DATE: 02/19/2024 TIME OF EVALUATION: 02/19/2024 4:41 PM Reason for Consult: varices Admitting Physician: Irnea Johnson MD HISTORY OF PRESENT ILLNESS Loyd [...] 3 tablets (150 m (more content not included)...[facility] HospitalHP Attestation signed by Irena Johnson MD at [...] Abdominal: General: Abdomen i (more content not included)...[facility] HospitalOrders Onlyon 13-00-2348Uzormj [id number] Loyd Blandon 1955 M [facility] Provider Department Center 02/19/2024 [facility] No family history on [facility] carolinaNormalUniWood County HospitalOrders Only [id number] Loyd Blandon 1955 [facility] Provider Department [place] 02/19/2024 JANINA ROMERO [facility] No family history on [facility]36on 54-15-290991Txbpyn patient's to schedule his 4-6 week follow up with Dr. Johnson, was able to get him in for the 03/08/24 clinic. During this phone call his stated that she is very upset and anxious because he had an MRI done on 01/25/24 in [place] and still hasn't received a call regarding the results. Apologized to her and told her a message would be sent to the provider regarding the results being reviewed with her and the patient, confirmed the message would be sent high priority. Please advise.[facility]36 LVM for patient's letting her know we have some available appts with Dr. Johnson on 02/21/24 and 03/08/24 to bring him in for a follow up Liver cirrhosis [facility] HospitalOffice Visiton 01-64-1752Lkbkrq-up [id number] Loyd Blandon 1955 [facility] Provider Department Center 02/15/2024 JEAN KIM ONC [facility] No family history on file Level of Service:[address] [place] OFFICE/OUTPATIENT NEW LOW MDM 30 MINUTES (GC) Reason for Visit and Comments: Consult [484] - New patient possible thoracentesisNormalUniversAvita Health System Galion Hospital36on 61-80-489846Pvkxgas's called with questions/concerns regarding his upcoming endoscopy and his breathing during procedure. Transferred to endoscopy to speak with one of the nurses and/or schedulers that can answer questions related to preparation for the procedure.NormalGuernsey Memorial HospitalALL CBC WITH AUTO DIFFon 44-68-4836SRTJWMBQZ ABSOLUTE AUTO0.1NOMS HealthcareBasophils/100 WBC (Bld)1 %0.2 - 2.0 %NOMS HealthcareEosinophils/100 WBC (Bld)4.5 %0.9 - 7.0 %NOMS HealthcareErythrocyte distribution width (RBC) [Ratio]15.6 %High11.0 - 15.0 % NOMS HealthcareHematocrit (Bld) [Volume fraction]38.2 %Low42.0 - 54.0 %NOMS [facility] Behavioral HospitalHemoglobin (Bld) [Mass/Vol]13.1 g/dLLow14.0 - 18.0 g/dLNONevada Regional Medical Center IMMATURE GRANULOCYTES ABS AUTO0.01NONevada Regional Medical CenterImmature granulocytes/100 WBC (Bld)0.2 %0.0 - 0.5 %NOM HealthcareInterpretation and review of laboratory resultsAbnormalNONevada Regional Medical CenterLYMPHOCYTES ABSOLUTE SWOF3EshKNEN Healthcare Lymphocytes/100 WBC (Bld)19.5 %Low20.5 - 60.0 %[facility] HospitalH (RBC) [Entitic mass]34.7 jvChzt77.9 - 34.[address] LouisHC (RBC) [Mass/Vol]34.3 g/dL29.9 - 35.2 g/dLSaint John's Aurora Community HospitalV (RBC) [Entitic vol]101.1 uOMrcw32.0 - 94.0 fLNONevada Regional Medical CenterMONOCYTES ABSOLUTE AUTO0.6NOMS HealthcareMonocytes/100 WBC (Bld)11.7 % 1.7 - 12.0 %NOMS HealthcareNEUTROPHILS ABSOLUTE AUTO3.1[facility] Neutrophils/100 WBC (Bld)63.1 %43.0 - 75.0 %NOMS [facility] Behavioral HospitalPlatelet mean volume (Bld) [Entitic vol]10 fL9.5 - 13.5 fLNONevada Regional Medical CenterTBH EO #0.2NOM[facility] Healthcare TB YFG935YliXJIE [facility] RBC3.78LowNOLafayette Regional Health Center WBC4.9NOMS HealthcareCLINISYNCNOMS HealthcarePrep for Procedureon 52-31-4169Tfgm for [id number] Loyd Blandon 1955 M Date Provider Department Center 02/12/2024 IRENA SCHMIDT [facility] No family history on fileNormalUniversity of Hca Houston Healthcare North CypressMR Abdomen WO and W contrast Syed 25-02-5734[place], [place] [address] Magnetic Resonance Report Signed Patient: LOYD BLANDON MR#: [id number] : 1955 Acct:[id number] Age/Sex: 68 / M ADM Date: 01/24/24 Loc: MRI Attending Dr: Non-Staff Physician Eriberto Ordering Physician: PhysicianYolandaStaff Eriberto Date of Service: 01/24/24 Procedure(s): MR abdomen wo/w con Accession Number(s): [id number] cc: SANJAY ROBLEDO ; Physician,NonMinnieStaff Eriberto [address] [place] [id number] Patient Name: LOYD BLANDON MRN: [facility]:[id number] date: 1955 Sex: M Assigned Patient Location: MRI Current Patient Location: Accession/Order Number: [id number] Exam Date: 01/24/2024 13:50 Report Date: 01/25/2024 [...] Signed By: 01/25/24 0701 DD/ 0659 TD/TT: Behavioral Science Chair:DUANEHRadiology, Radiologist, - 01/25/2024 [place] [address] Magnetic Resonance Report Signed Patient: LOYD BLANDON MR#: [id number] : 1955 Acct:[id number] Age/Sex: 68 / M ADM Date: 01/24/24 Loc: MRI Attending Dr: Non-Staff Physician Eriberto Ordering Physician: PhysicianNon-Staff Eriberto Date of Service: 01/24/24 Procedure(s): MR abdomen wo/w con Accession Number(s): [id number] cc: SANJAY ROBLEDO ; Physician,Non-Staff Eriberto [facility] [place] [id number] Patient Name: LOYD BLANDON MRN: [facility]:[id number] date: 1955 Sex: M Assigned Patient Location: MRI Current Patient Location: Accession/Order Number: [id number] Exam Date: 01/24/2024 13:50 Report Date: 01/25/2024 [...] M.D. Signed By: 01/25/2401 DD/ 0659 TD/TT: Behavioral Science Chair: [facility] Hospitaliology Study observation (narrative)[facility] Abdomen WO and W contrast IVOrdered By: Radiologist Radiology on 94-28-5798MINJSaint Mary's Hospital of [facility] Springs Work Phone: Orders Onlyon 37-54-2237Yhtbey [id number] Loyd Blandon 1955 M Date Provider Department Center 01/25/2024 Y5312-OUMOOISI, HISTORICAL MP [facility] No family history on fileNormalUniversity of Hca Houston Healthcare North CypressUS PARACENTESIS ABD W/IMAGEon 40-55-3740BnhB[place], [place] [address] Ultrasound Report Signed Patient: LOYD BLANDON MR#: [id number] : 1955 Acct:[id number] Age/Sex: 68 / M ADM Date: 01/24/24 Loc: US Attending Dr: Non-Staff Physician Eriberto Ordering Physician: PhysicianNonMinnieStaff Eriberto Date of Service: 01/24/24 Procedure(s): US paracentesis abd w/image Accession Number(s): [id number] cc: SANJAY ROBLEDO ; Physician,Non-Staff Eriberto [place] [address] Patient Name: LOYD BLANDON MRN: [facility]:[id number] date: 1955 Sex: M Assigned Patient Location: US Current Patient Location: Accession/Order Number: [id number] Exam Date: 01/24/2024 13:00 Report Date: 01/24/2024 [...] Signed By: 01/24/24 1529 DD/ 1527 TD/TT: Behavioral Science Chair:MONTYadiologteresa Radiologist, - 01/24/2024 [place] [address] Ultrasound Report Signed Patient: LOYD BLANDON MR#: [id number] : 1955 Acct:[id number] Age/Sex: 68 / M ADM Date: 01/24/24 Loc: US Attending Dr: Non-Staff Physician MJulio Cesar Ordering Physician: Physician,Non-Staff Eriberto Date of Service: 01/24/24 Procedure(s): US paracentesis abd w/image Accession Number(s): [id number] cc: SANJAY ROBLEDO ; Physician,Non-Staff Eriberto [address] [place] [address] Patient Name: LOYD BLANDON MRN: [facility]:[id number] date: 1955 Sex: M Assigned Patient Location: Current Patient Location: Accession/Order Number: [id number] Exam Date: 01/24/2024 13:00 Report Date: 01/24/2024 [...] M.D. Signed By: 01/24/241528 DD/ 26 TD/TT: Behavioral Science Chair: [facility] SpringsRadiology Study observation (narrative)[facility] Blue SpringsUS PARACENTESIS ABD W/IMAGEOrdered By: Radiologist Radiology on 64-16-9283XNHLSaint Mary's Hospital of Blue Springs Work Phone: [place] Eye+Orbit - bilateralon 31-41-4453Yvipctasr: Cataract both eyes (OU) Testing Indication: Performed for preop measurements in the determination of an intraocular lens (IOL) for both eyes (OU) Test Reliability: Good quality both eyes (OU) Interpretation: Good measurements for intraocular lens (IOL) calculation purposes. Calculation made for both eyes (OU).[facility] Radiology Study observation (narrative)[facility]36on 07-71-483379Hcbwmd sent in [facility] hospitalNormalUniWood County HospitalOrders Onlyon 01-16-2024 Orders [id number] Loyd Blandon 1955 [facility] Provider Department [place] 01/16/202467672-IWWDORENARD HAZEL [facility] No family history on fileNormalUniWood County HospitalXR ABDOMEN 1V on 68-62-3007Ds[address] [address] XRay Report Signed Patient: LOYD BLANDON MR#: [id number] : 1955 Acct:[id number] Age/Sex: 68 / M ADM Date: 01/03/24 Loc: US Attending Dr: Non-Staff Physician Eriberto Ordering Physician: PhysicianYolandaStaff Eriberto Date of Service: 01/03/24 Procedure(s): XR abdomen 1V Accession Number(s): [id number] cc: SANJAY ROBLEDO ; PhysicianYolandaStaff Eriberto The [place] [address] Patient Name: LOYD BLANDON MRN: [facility]:[id number] date: 1955 Sex: M Assigned Patient Location: US Current Patient Location: Accession/Order Number: [id number] Exam Date: 01/03/2024 09:15 Report Date: 01/05/2024 [...] M.D. Signed By: 01/05/24710 DD/ 8 TD/TT: Behavioral Science Chair:TBHRadiology, Radiologist, MD - 01/05/2024 [place] [address] XRay Report Signed Patient: LOYD BLANDON MR#: [id number] : 1955 Acct:[id number] Age/Sex: 68 / M ADM Date: 01/03/24 Loc: US Attending Dr: Non-Staff Physician Eriberto Ordering Physician: PhysicianNonNkechi Wei Date of Service: 01/03/24 Procedure(s): XR abdomen 1V Accession Number(s): [id number] cc: SANJAY ROBLEDO ; PhysicianYolandaStaff Eriberto The [address] [id number] Patient Name: LOYD BLANDON MRN: [facility]:[id number] date: 1955 Sex: M Assigned Patient Location: US Current Patient Location: Accession/Order Number: [id number] Exam Date: 01/03/2024 09:15 Report Date: 01/05/2024 07:09 At the request of: NON-STAFF PHYSICIAN Procedure: XR abdomen 1V EXAMINATION: XR abdomen 1V HISTORY: Diarrhea COMPARISON: No relevant comparison available. FINDINGS: BOWEL GAS PATTERN: No abnormal dilation or deviation. CALCIFICATIONS: None significant. OTHER: Negative. No abnormal gaseous collections. XR/XR abdomen 1V IMPRESSION: Nonobstructive bowel gas pattern Electronically authenticated by: AUUTMN FARNSWORTH Date: 01/05/2024 07:09 Dictated By: Autumn Farnsworth M.D. Signed By: 01/05/24710 DD/ 8 TD/TT: Behavioral Science Chair: [facility] SpringsRadiology Study observation (narrative)[facility] Blue SpringsXR ABDOMEN 1VOrdered By: Radiologist Radiology on 33-33-0474PIARSaint Mary's Hospital of [facility] Springs Work Phone: elch AFP TUMOR MARKERon 09-83-0231LSD, SERUM, TUMOR MARKER2.5 ng/mL0.0 - 8.4 ng/mLNOMS HealthcareComment on above:[facility] Electrochemiluminescence Immunoassay (ECLIA) Values obtained with different assay methods or kits cannot be used interchangeably. Results cannot be interpreted as absolute evidence of the presence or absence of malignant disease. This test is not interpretable in females. Performed at: [facility] [address] [id number] Professor Of Astronomy: John Tang PhD, Phone: [phone] [place] HospitalOrders Onlyon 31-68-7421Ruuvwv [id number] Loyd Blandon 1955 M Date Provider Department Center 01/04/2024 O8144-EPTOVYTK, HISTORICAL MP GI Medical Pavi No family history on fileNormalUniversity of Hca [facility]ress36on 07-86-378317Vlpzrs patient with results with his repeat BMP [...] the day prior or the day of MRI.[facility]36----- Message from Rachel Doan MA sent at 01/03/2024 9:53 AM EDT ----- A new document has been added to this order with description The [facility] Lab results.[facility] General HospitalLon 01-03-2024L Specimen: [id number] Received: 01/09/24 Status: HUSAM Estuardo Num: [id number] Spec Type: Cytology Subm Dr: Autumn Farnsworth MD Tissues: A ASCITES (ASCITES) Procedures: HE/2, Gross/Micro L4, Cyto Prepstain, PAPSTN Age/ Patient Sex Location Account Attending Physician Loyd Blandon 68/M LABELL [id number] Autumn Farnsworth MD SPEC NUM: [id number] RECD: 01/09/24 STATUS: HUSAM MARTE NUM: [id number] WEN: 01/03/[address]: Autumn Farnsworth MD ENTERED: 01/09/24 [facility] DR: SPEC TYPE: Cytology DEPT: [facility] ENTERED BY: [id number] RECV BY: [id number] ORDERED: HE/2, Gross/Micro L4, Cyto Prepstain, PAPSTN [...] are prepared for microscopic examination. (MG/kp) Specimen: [id number] Received: 01/09/24 Status: HUSAM Marte Num: [id number] Spec Type: Cytology Subm Dr: Autumn Farnsworth MD Tissues: A ASCITES (ASCITES) Procedures: HE/2, Gross/Micro L4, Cyto Prepstain, PAPSTN Patient: Loyd Blandon [id number] (Continued) Specimen: [id number] Received: 01/09/24 (Continued) Signed (signature on file) Windy Duque MD 01/10/24 1758 Specimen: [id number] Received: 01/09/24 Status: HUSAM Marte Num: [id number] Spec Type: Cytology Subm Dr: Autumn Farnsworth MD Tissues: A ASCITES (ASCITES) Procedures: HE/2, Gross/Micro L4, Cyto Prepstain, PAPSTN Patient: Loyd Blandon [id number] (Continued) Specimen: [id number] Received: 01/09/24 (Continued) Microscopic Description Microscopic examinations are performed supporting the above interpretation CPT Codes 17218 12303 Specimen: [id number] Received: 01/09/24 Status: HUSAM Marte Num: [id number] Spec Type: Cytology Subm Dr: Autumn Farnsworth MD Tissues: A ASCITES (ASCITES) Procedures: HE/2, Gross/Micro L4, Cyto Prepstain, PAPSTN Patient: Loyd Blandon [id number] (Continued) Signed (signature on file) Chin-Fabio Duque MD 01/10/[address] [place] [address] Physician GroupHazard [facility] Onlyon 70-32-5551Gozoby Only [id number] Loyd Blandon 1955 M Date Provider Department Center 01/03/2024 R4839-SIFHVAYH, HISTORICAL MP GI Medical Pavi No family history on fileNormalUniversFirelands Regional Medical Center South CampusRMCOH PROTHROMBIN TIME INR W/O COUMon 39-65-8305Gxfjuqjjnbvmpx and review of laboratory resultsAbnormalNOMS HealthcarePT Coag (PPP) [Time]12.2 sHighNTwo Rivers Psychiatric HospitalTBH INR1.17NOWV HealthcareComment on above:DESIRED INR: 2.0-3.0 CONDITIONS NOT LISTED BELOW 2.5-3.5 FOR PROSTHETIC HEART VALVE REPLACEMENT 2.5-3.5 RECURRENT THROMBOSIS CLINISYNCNOMS HealthcareTelephoneon [id number] Loyd Blandon 1955 Date Provider Department Center 01/03/2024 3856-MARITO OQUENDO [facility] GASTRO None No family history on fileNormalUniversity of Hca Houston Healthcare North CypressUS PARACENTESIS ABD W/IMAGEon 33-65-5325Ujg [address] [address] Ultrasound Report Signed Patient: LOYD BLANDON MR#: [id number] : 1955 Acct:[id number] Age/Sex: 68 / M ADM Date: 01/03/24 Loc: US Attending Dr: Non-Staff Physician Eriberto Ordering Physician: Physician,Non-Staff Eriberto Date of Service: 01/03/24 Procedure(s): US paracentesis abd w/image Accession Number(s): [id number] cc: ASNJAY ROBLEDO ; Physician,Non-Staff Eriberto The [address] [address] Patient Name: LOYD BLANDON MRN: [id number] date: 1955 Sex: M Assigned Patient Location: US Current Patient Location: US Accession/Order Number: [id number] Exam Date: 01/03/2024 08:00 Report Date: 01/03/2024 [...] M.D. Signed By: 01/03/2441 DD/ 8 TD/TT: Behavioral Science Chair:TBHRadiology, Radiologist, - 01/03/[address] [address] Ultrasound Report Signed Patient: LOYD BLANDON MR#: [id number] : 1955 Acct:[id number] Age/Sex: 68 / M ADM Date: 01/03/24 Loc: US Attending Dr: Non-Staff Physician Eriberto Ordering Physician: PhysicianYolandaStaff Eriberto Date of Service: 01/03/24 Procedure(s): US paracentesis abd w/image Accession Number(s): [id number] cc: SANJAY ROBLEDO ; Physician,YolandaStaff Eriberto The [address] [address] Patient Name: LOYD BLANDON MRN: [id number] date: 1955 Sex: M Assigned Patient Location: US Current Patient Location: Accession/Order Number: [id number] Exam Date: 01/03/2024 08:00 Report Date: 01/03/2024 [...] M.D. Signed By: 01/03/24940 DD/ 8 TD/TT: Behavioral Science Chair: EDDIE HealthcareRadiology Study observation (narrative)EDDIE HealthcareUS PARACENTESIS ABD W/IMAGEOrdered By: Radiologist Radiology on 42-45-0324ZVJP [facility] Work Phone: [phone] [phone] patient to clarify Lasix dosage, instructed to take Lasix 60mg daily. expressed understanding. I did instruct her that we would like repeat BMP to assess potassium and Creatinine, Monday or Monday. She is planning to have this done at [facility] on Monday. I did provide the fax number to our clinic for results. She is awaiting scheduling for MRI and Abdominal XR at [place].[facility] HospitalRefillon [id number] Loyd Blandon 1955 M [facility] Provider Department Center 12/30/202389701-NGONYRENARD TAYLOR MP GI Medical Pavi No family history on file Reason for Visit and Comments: Med Refill [[id number]][facility]36on Patient's called in to say that the lab at [place] told her insurance doesn't cover the Enteric Bacterial DNA stool and it is $1500, they told her if we sent in an order for a stool culture is would be similar and insurance would cover that. Also the lab doesn't do the fecal fat 24 hours, but will do the fecal fat 72 hours. Please advise.[facility]36 Patient's calling again for clarification of lasix dosage 60mg daily on the office note, 60mg BID on the prescription. She is concerned about giving him the correct dosage and frequency.[facility] Documentationon [id number] Loyd Blandon 1955 [facility] Provider Department Center 12/29/2023 ZAKIYA GRANADOS MP GI Medical Pavi No family history on fileNormalUniversity of Hca Houston Healthcare North CypressOrders Onlyon 49-68-9662Crnxld [id number] Loyd Blandon 1955 [facility] Provider Department Center 12/29/20232030-EKATERINA ALMODOVAR [facility] GURPREETI No family history on fileNormalUniversity Riverside Methodist HospitalTelephoneon [id number] Loyd Blandon 1955 M Date Provider Department Center 12/29/2023 BROOKLYNN ZEPEDA MP [facility] Pavi No family history on [facility]36on 84-27-755723Csjlhrq's calling for clarification of Lasix dosage, on discharge plan it is written as 60mg daily, but the pharmacy gave her a bottle of lasix where the sig is written 60mg twice daily. She anxious and wants to make sure she gives him the correct dosage and frequency.Please advise.NormalGuernsey Memorial HospitalTelephoneon [id number] Loyd Blandon 1955 M Date Provider Department Center 12/28/2023 51587-TJJCGOBROOKLYNN MORALES MP [facility] Pavi No family history on [facility]37on 66-80-312908Ga your way out today, please get lab [...] (same day). This can be done at [place]. Please continue Rifaximin 550mg twice daily, and Lactulose once daily for encephalopathy Schedule a follow up appointment in 3 months.NormalUnDetwiler Memorial HospitalAFP TUMOR MARKERon 61-04-6550TVKBX FETOPROTEIN TUMOR MARKER3 ng/mLNormal 0-9UnDetwiler Memorial HospitalComment on above:Result Comment: INTERPRETIVE INFORMATION: Alpha Fetoprotein [...] reference intervals for this test in the [facility] Test Directory ([facility] - [employer]). Performed By: [facility] [address] [place] [address] Catering Chef: Ira Lutz MD, PhD CLIA Number: [id number] By: #### [id number] ####[facility] ([facility])[address] [place], [place] [address]EDUnv 66-20-2398Xljwzatscvo distribution width (RBC) [Ratio]15.1 %High11.5-15.0UnDetwiler Memorial HospitalComment on above:Performed By: #### [id number] ####[facility] (BEAKER)[address] [place], [place] [address]WDLPEATCACI MEAN CORPUSCULAR HEMOGLOBIN CONCENTRATION (G/DL) BY IRMKLGYMV35.2 g/xOEgdped15.0-35.0UnDetwiler Memorial HospitalComment on above:Performed By: #### [id number] ####[facility] (BEAKER)[address] [place], [place] [address]Dfbbjqmtaz (Bld) [Volume fraction]38.5 %Low39.0-55.0 Guernsey Memorial HospitalComment on above:Performed By: #### [id number] ####[facility] (BEAKER)[address] [place], [place] [address]Dudywqytjy (Bld) [Mass/Vol]12.8 g/dLLow13.0-17.0UnDetwiler Memorial HospitalComment on above:Performed By: #### [id number] ####[facility] (BEAKER)[address] [place], [place] [address]XQW (RBC) [Entitic mass]32.8 jpCtpbnf85.0-33.0UnDetwiler Memorial HospitalComment on above:Performed By: #### [id number] ####[facility] ([place])[address] [place] [address]HAU (RBC) [Entitic vol] 98.7 qYTntc36.0-98.0UnDetwiler Memorial HospitalComment on above: Performed By: #### [id number] ####[facility] ([place])[address] [address]XUFQIIUTC (10*3/UL) IN BLOOD AUTOMATED SKVEI639 10*3/uLNormal 150-400UnDetwiler Memorial HospitalComment on above:Performed By: #### [id number] ####[facility] ([place])[address] [address]CZT (Bld) [#/Vol]3.90 10*6/uLLow4.20-5.70UnDetwiler Memorial HospitalComment on above:Performed By: #### [id number] ####[facility] ([place])[address] [place] [address]GCV (Bld) [#/Vol]4.72 10*3/uLNormal4.00-10.60UnDetwiler Memorial HospitalComment on above:Performed By: #### [id number] ####[facility] ([place])[address] [address]OKLGVPVUFNWNY METABOLIC PANELon 39-77-0879Ueutrbi [Mass/Vol]3.1 g/dLLow3.5-5.7UnDetwiler Memorial HospitalComment on above:Performed By: #### [id number] ####[facility] ([place])[address] [address]OCI [Catalytic activity/Vol]120 U/L Uhoq41-641QjrusqwcpaDetwiler Memorial HospitalComment on above:Performed By: #### LAB17 ####[facility] ([place])[address] [place], [place] [address]BMJ [Catalytic activity/Vol]25 U/LNormal7-52UnDetwiler Memorial Hospital Comment on above:Performed By: #### LAB17 ####[facility] ([place])[address] [place], [place] [address]Ukzca gap [Moles/Vol]12 mmol/LNormal7-20UnDetwiler Memorial HospitalComment on above:Performed By: #### [id number] ####[facility] ([place])[address] [place], [place] [address]IHR [Catalytic activity/Vol]46 U/MTcxp69-85IzgxzlwklyDetwiler Memorial HospitalComment on above: Performed By: #### LAB17 ####[facility] ([place])[address] [place], [place] [address]Uwfbonaqt [Mass/Vol]1.9 mg/dLHigh0.3-1.0UnDetwiler Memorial HospitalComment on above:Performed By: #### [id number] ####[facility] ([place])[address] [place], [place] [address]Cxbwxzg [Mass/Vol]9.0 mg/dLNormal 8.6-10.3UnDetwiler Memorial HospitalComment on above:Performed By: #### [id number] ####[facility] ([place])[address] [place], [place] [address]Yofgzjye [Moles/Vol]98 mmol/OCttkgl01-323SmcyrdjqrxDetwiler Memorial HospitalComment on above:Performed By: #### LAB17 ####[facility] ([place])[address] [place], [place] [address]EH1 [Moles/Vol]26 mmol/DAhcxnj29-82BkosyqudwdDetwiler Memorial HospitalComment on above:Performed By: #### LAB17 ####[facility] ([place])[address] [place], [place] [address]Meeyadsmgl [Mass/Vol]1.11 mg/dLNormal 0.70-1.30UnDetwiler Memorial HospitalComment on above:Performed By: #### [id number] ####[facility] ([place])[address] [place] [address]SGBQGZEVFX FILTRATION RATE ML/MIN/1.73 SQ M.PJOODFDVW25.4 mL/min/1.73m*2Normal>60.0 Guernsey Memorial HospitalComment on above:Result Comment: [facility]???s estimated glomerular filtration rate (eG FR) [...] group of individuals. Performed By: #### [id number] ####[facility] ([place])[address] [place] [address]Sdrespt [Mass/Vol]111 mg/mZCifm68-559MlmyhsqscrDetwiler Memorial HospitalComment on above:Performed By: #### [id number] ####[facility] ([place])[address] [place] [address]Lyczlpbsc [Moles/Vol]4.4 mmol/LNormal 3.5-5.1UnDetwiler Memorial HospitalComment on above:Performed By: #### [id number] ####[facility] ([place])[address] [place] [address]Dkghiav [Mass/Vol]7.3 g/dLNormal6.0-8.3UnDetwiler Memorial HospitalComment on above:Performed By: #### [id number] ####[facility] ([place])[address] [place] [address]Iqzbbn [Moles/Vol]132 mmol/ZFst685-245UlgxiweemnDetwiler Memorial HospitalComment on above:Performed By: #### [id number] ####[facility] ([place])[address] [place] [address]Tgqc nitrogen [Mass/Vol]17 mg/dLNormal 7-25UnDetwiler Memorial HospitalComment on above:Performed By: #### [id number] ####[facility] (BEAKER)[address] [place] [address]DIIG NITROGEN/CREATININE (MASS RATIO) IN SER/PLAS15.3NormalUniWood County HospitalComment on above:Performed By: #### LAB17 ####[facility] (BEAKER)[address] [place] [address]Tdems [id number] JamiaLoyd 1955 M Date Provider Department Center 12/27/2023 2244-[facility] MP LAB RESOURCE MP DRAW Medical Pavi No family history on fileNormalUniversAvita Health System Galion HospitalOffice Visiton 76-61-0650Xfqnnn-up [id number] Loyd Blandon 1955 M Date Provider Department Center 12/27/2023 298-IRENA JOHNSON GI Medical Pavi No family history on file Level of Service:62095 [place] OFFICE/OUTPATIENT ESTABLISHED HIGH MDM 40 MIN (GC) Reason for Visit and Comments: Follow-up [716961] Cirrhosis [239] Ascites [295]NormalUnDetwiler Memorial HospitalPROTIME-INRon 12-27-2023 INR IN PPP BY COAGULATION ASSAY1.95Mduh0.90-1.10UnDetwiler Memorial HospitalComment on above:Result Comment: ACCCP RECOMMENDED INR FOR [...] OPTIMAL THERAPEUTIC RANGE. CHEST 1995;108:231S-246S.Performed By: #### [id number] #### [facility] LAB (BEAKER) [address] [place], [place] [address]CBOPFFNOQKA TIME (PT) IN PPP BY COAGULATION ASSAY15.3 Seconds High12.3-14.8UnDetwiler Memorial HospitalComment on above:Performed By: #### [id number] #### [facility] (BEAKER) [address] [place], [place] [address]fk 12-23-623604B called and spoke with the patient's in regards to his recent lab work after increasing his diuretics. His creatinine and electrolytes are grossly stable after increasing his Lasix and Aldactone. We will continue with the current regimen of Lasix 40 twice daily and Aldactone 200 mg daily and follow-up in hepatology clinic on 12/27/2023.NormalUnDetwiler Memorial HospitalELCH AFP TUMOR MARKERon 16-02-5697BGA, SERUM, TUMOR MARKER2.7 ng/mL0.0 - 8.4 ng/mL [facility] SpringsComment on above:[facility] Electrochemiluminescence Immunoassay (ECLIA) Values obtained with different assay methods or kits cannot be used interchangeably. Results cannot be interpreted as absolute evidence of the presence or absence of malignant disease. This test is not interpretable in females. Performed at: [facility] Lab[address] [id number] Professor Of Astronomy: John Tang PhD, Phone: [phone] CLINISYNCNOMS HealthcareOrders Onlyon 04-43-8880Iwnqjw [id number] Loyd Blandon 1955 M Date Provider Department Center 12/21/2023 T5305-YXVBOKBSMAGALIS MOORE MP GI Medical Pavi No family history on fileNormalUniversity of Hca Houston Healthcare North CypressTelephoneon [id number] Loyd Blandon 1955 M Date Provider Department Center 12/21/2023 66395-SCEKZ, RENARD MP GI Medical Pavi No family history on fileNormalUniversity of Hca Houston Healthcare North CypressALL CBC WITH AUTO DIFFon 55-63-5360URXCHNWXU ABSOLUTE AUTO0.0NOMS HealthcareBasophils/100 WBC (Bld)0.8 %0.2 - 2.0 %NOMS HealthcareEosinophils/100 WBC (Bld)2.7 %0.9 - 7.0 % NOMS HealthcareErythrocyte distribution width (RBC) [Ratio]14.9 %11.0 - 15.0 % NOMS HealthcareHematocrit (Bld) [Volume fraction]37.6 %Low42.0 - 54.0 %NOMMercy Hospital WashingtonHemoglobin (Bld) [Mass/Vol]12.7 g/dLLow14.0 - 18.0 g/dLNONevada Regional Medical Center IMMATURE GRANULOCYTES ABS AUTO0.02NOMS [facility] HospitalImmature granulocytes/100 WBC (Bld)0.4 %0.0 - 0.5 %NOM HealthcareInterpretation and review of laboratory resultsAbnormalNONevada Regional Medical CenterLYMPHOCYTES ABSOLUTE AUTO0.7LowNOMS Healthcare Lymphocytes/100 WBC (Bld)15.2 %Low20.5 - 60.0 %[facility] HospitalH (RBC) [Entitic mass]33.6 pg25.9 - 34.[address]HC (RBC) [Mass/Vol]33.8 g/dL29.9 - 35.2 g/dLNONevada Regional Medical CenterMCV (RBC) [Entitic vol]99.5 jRYbeu41.0 - 94.0 fLNONevada Regional Medical CenterMONOCYTES ABSOLUTE AUTO0.6NOMS HealthcareMonocytes/100 WBC (Bld)11.9 % 1.7 - 12.0 %NOMS HealthcareNEUTROPHILS ABSOLUTE AUTO3.3NOMS Healthcare Neutrophils/100 WBC (Bld)69.0 %43.0 - 75.0 %NOMS HealthcarePlatelet mean volume (Bld) [Entitic vol]9.8 fL9.5 - 13.5 fLNONevada Regional Medical CenterTBH EO #0.1NOMS Healthcare TB NVJ414WNWY [facility] Behavioral HospitalTB RBC3.78LowNOMS Georgetown Behavioral HospitalTB WBC4.8NOMS Healthcare CLINISYNCNOMS HealthcareCA ECHO DOPPLER COMPLETEon 04-79-9120Bsv [place] [id number] Cardiology Report Signed Patient: LOYD BLANDON MR#: [id number] : 1955 Acct:[id number] Age/Sex: 68 / M ADM Date: 12/20/23 Loc: CARD Attending Dr: XUAN ESPINO Ordering Physician: XUAN ESPINO Date of Service: 12/20/23 Procedure(s): CA echo doppler complete Accession Number(s): [id number] cc: SANJAY ROBLEDO ; XUAN ESPINO Patient Name: LOYD BLANDON MR#: [id number] : 1955 Exam Date: 12/20/2023 Ordering Doctor: [...] 3.77 cm2, 3.49 cm2, 4.08 cm2 Deceleration [place]: Pressure Half-Time: Peak Velocity(Antegrade Flow): 0.98 m/s, [...] content not included)...TBHRadiology, Radiologist, - 12/20/2023 [place] [address] Cardiology Report Signed Patient: LOYD BLANDON MR#: [id number] : 1955 Acct:[id number] Age/Sex: 68 / M ADM Date: 12/20/23 Loc: CARD Attending Dr: XUAN ESPINO Ordering Physician: XUAN ESPINO Date of Service: 12/20/23 Procedure(s): CA echo doppler complete Accession Number(s): [id number] cc: SANJAY ROBLEDO ; XUAN ESPINO Patient Name: LOYD BLANDON MR#: [id number] : 1955 Exam Date: 12/20/2023 Ordering Doctor: [...] 3.77 cm2, 3.49 cm2, 4.08 cm2 Deceleration [place]: Pressure Half-Time: Peak Velocity(Antegrade Flow): 0.98 m/s, [...] M.D. Signed By: 12/20/231720 DD/ 19 TD/TT: Behavioral Science Chair: [facility] SpringsRadiology Study observation (narrative)[facility] ECHO DOPPLER COMPLETEOrdered By: Radiologist Radiology on 43-25-9002QGSW Healthcare Work Phone: Orders Onlyon 92-15-8259Beobwm [id number] Loyd Blandon 1955 M Date Provider Department Center 12/20/2023 K8351-EFPUUQOF, HISTORICAL MP GI Medical Pavi No family history on fileNormalUniversity Riverside Methodist Hospital36on 06-67-465172Aaivsi faxed lab orders to [facility]36----- Message from Renard Hazel MD sent at 12/14/2023 1:36 PM EDT ----- Petra, I sent over a prescription for his diuretics and recommended that they have repeat CMP next week. The order has been placed, can you please fax this to [facility] so that they can get them done next week? Thank you so much ----- Message ----- From: Rachel Doan MA Sent: 12/13/2023 1:35 PM EDT To: Renard Hazel MD A new document has been added to this order with description CMP results The [facility]36Patient's called last week asking for increased prescription [...] assess his diuretics further at that time. [facility] HospitalOrders Onlyon 99-86-7005Soaypn Only [id number] Loyd Blandon 1955 M Date Provider Department Center 12/14/202338599-LIMBHRENARD HAZEL MP Medical Pavi No family history on [facility] HospitalTelephoneon [id number] Loyd Blandon 1955 M Date Provider Department Center 12/14/202309152-QSFRERENARD HAZEL MP Medical Pavi No family history on [facility] HospitalCCF CMP (CMP) (FOR REMOTE [facility] USE)on 48-84-3468Tfgnppw [Mass/Vol]2.5 g/dLLow3.4 - 5.0 g/dLNOMS HealthcareALBUMIN GLOBULIN [...] g/dL6.4 - 8.2 g/dL NOMS HealthcareSodium [Moles/Vol]135 mmol/JRdt309 - 145 mmol/LNOMS HealthcareTBH EGFR-NON AF BJIYYAPP17Jsh97 - PINFNOMS HealthcareUrea nitrogen [Mass/Vol]15.0 mg/dL7.0 - 18.0 mg/dLNOMS HealthcareUrea nitrogen/Creatinine [Mass ratio]11.6 mg/mgNOMS HealthcareCLINISYNCNOMS HealthcareOrders Onlyon 02-89-1979Txyhjw Only [id number] Loyd Blandon 1955 M Date Provider Department [place] 12/13/2023 N8981-UBUADUKW, HISTORICAL MP GI Medical Pavi No family history on fileNormalUniversity of Hca [facility]36on 66-54-312397Lhgifie's reports that the patient was recently hospitalized [...] has an appointment in hepatology clinic on 12/27/2023.[facility]36Wife of patient calls today stating that when they went for paracentesis at [facility] last week - the patient was admitted. [...] until clinic visit with Dr. Johnson on 12/27/2023.[facility] CenterOrders Onlyon 84-91-5695Jlhifz [id number] Loyd Blandon 1955 M Date Provider Department Center 12/11/202388745-RYHWMRENARD TAYLOR MP Medical Pavi No family history on fileNormalUniWood County HospitalTelephoneon [id number] Loyd Blandon 1955 M Date Provider Department Center 12/11/202364928-POOTPRENARD HAZEL MP Medical Pavi No family history on fileNormalUniWood County HospitalGRAM STAIN RESULTon 11-04-4219IZUC STAIN RESULT Gram Stain Result NOMS HealthcareGRAM STAIN RESULTNo white blood cells seen.NOMS HealthcareGRAM STAIN RESULTNOMS HealthcareGRAM STAIN RESULTNo organisms seenNOMS HealthcareGRAM STAIN RESULTPerformed at: - [facility] HealthcareGRAM STAIN RESULT [address] [place], [place] [id number] HealthcareGRAM STAIN RESULTLab Director: John Tang PhD, Phone: [phone] [facility] Pleural fluid CLINISYNCNOMS HealthcareLon 11-14-5319RDnijfwdn: Received: 12/11/23 Status: HUSAM Marte Num: [id number] Spec Type: Cytology Subm Dr: Devyn Winter DO Tissues: A PLEURAL FLUID (PLEUR) Procedures: HE/2, Gross/Micro L4, Cyto Prepstain, PAPSTN Age/ Patient Sex Location Account Attending Physician Loyd Blandon 68/M LABELL [id number] Devyn Winter DO SPEC NUM: BC RECD: 12/11/23 STATUS: HUSAM PATELMartin NUM: [id number] WEN: 12/08/[address]: Devyn Winter DO ENTERED: 12/11/[address]: Aliza Arroyo SPEC TYPE: Cytology DEPT: MARLEN VALDEZ ENTERED BY: [id number] RECV BY: [id number] ORDERED: HE/2, Gross/Micro L4, Cyto Prepstain, PAPSTN [...] Specimen: Received: 12/11/23 Status: SERAEmilie Marte Num: [id number] Spec Type: Cytology Subm Dr: Devyn Winter DO Tissues: A PLEURAL FLUID (PLEUR) Procedures: HE/2, Gross/Micro L4, Cyto Prepstain, PAPSTN Patient: Loyd Blandon [id number] (Continued) Specimen: BC24 Received: 12/11/23 (Continued) Signed (signature on file) Windy Duque MD 12/14/23 1503 Specimen: BC24 Received: 12/11/23 Status: HUSAM Marte Num: [id number] Spec Type: Cytology Subm Dr: Devyn Winter DO Tissues: A PLEURAL FLUID (PLEUR) Procedures: HE/2, Gross/Micro L4, Cyto Prepstain, PAPSTN Patient: JamiaLoyd [id number] (Continued) Specimen: Received: 12/11/23 (Continued) CPT Codes 66463 23181 Specimen: Received: 12/11/23 Status: HUSAM Marte Num: [id number] Spec Type: Cytology Subm Dr: Devyn Winter DO Tissues: A PLEURAL FLUID (PLEUR) Procedures: HE/2, Gross/Micro L4, Cyto Prepstain, PAPSTN Patient: Loyd Blandon [id number] (Continued) Signed (signature on file) Windy Duque MD 12/14/23 [facility] Physician GroupLon 94-64-9620FHawchytq: BC24 Received: 12/14/23 Status: HUSAM Remartin Num: [id number] Spec Type: Cytology Subm Dr: Ward Ferrer MD Tissues: A ASCITES (ASC) Procedures: HE/2, Gross/Micro L4, Cyto Prepstain, PAPSTN Age/ Patient Sex Location Account Attending Physician Loyd Blandon 68/M LABELL [id number] Ward Ferrer MD SPEC NUM: [id number] RECD: 12/14/23 STATUS: SERAEmilie MARTE NUM: [id number] WEN: 12/07/23- SUBM DR: Ward Ferrer MD ENTERED: 12/14/23 [facility] DR: Dina,Lab SPEC TYPE: Cytology DEPT: [facility] ENTERED BY: [id number] RECV BY: [id number] ORDERED: HE/2, Gross/Micro L4, Cyto Prepstain, PAPSTN [...] BC24 Received: 12/14/23 Status: HUSAM Marte Num: [id number] Spec Type: Cytology Subm Dr: Ward Ferrer MD Tissues: A ASCITES (ASC) Procedures: HE/2, Gross/Micro L4, Cyto Prepstain, PAPSTN Patient: JamiaLoyd [id number] (Continued) Specimen: BC Received: 12/14/23 (Continued) Signed (signature on file) Windy Duque MD 12/19/23 1440 Specimen: Received: 12/14/23 Status: HUSAM Marte Num: [id number] Spec Type: Cytology Subm Dr: Ward Ferrer MD Tissues: A ASCITES (ASC) Procedures: HE/2, Gross/Micro L4, Cyto Prepstain, PAPSTN Patient: JamiaLoyd [id number] (Continued) Specimen: Received: 12/14/23 (Continued) CPT Codes 59933 41367 Specimen: Received: 12/14/23 Status: HUSAM Marte Num: [id number] Spec Type: Cytology Subm Dr: Ward Ferrer MD Tissues: A ASCITES (ASC) Procedures: HE/2, Gross/Micro L4, Cyto Prepstain, PAPSTN Patient: Loyd Blandon [id number] (Continued) Signed (signature on file) Windy Duque MD 12/19/[address] [place] [address] Physician GroupUS PARACENTESIS ABD W/IMAGEon 12-07-[address] [address] Ultrasound Report Signed Patient: LOYD BLANDON MR#: [id number] : 1955 Acct:[id number] Age/Sex: 68 / M ADM Date: 12/07/23 Loc: US Attending Dr: Non-Staff Physician M.DAshley Ordering Physician: Physician,Non-Staff MJulio Cesar Date of Service: 12/07/23 Procedure(s): US paracentesis abd w/image Accession Number(s): [id number] cc: SANJAY ROBLEDO ; Physician,Non-Staff MJulio Cesar [address] [address] Patient Name: LOYD BLANDON MRN: [id number] date: 1955 Sex: M Assigned Patient Location: ED.MAIN Current Patient Location: ED.MAIN Accession/Order Number: [id number] Exam Date: 12/07/2023 12:20 Report Date: 12/07/2023 [...] Signed By: 12/07/23 1513 DD/ 1511 TD/TT: Behavioral Science Chair:MONTYadiologteresa, Radiologist, - 12/07/2023 [place] [address] Ultrasound Report Signed Patient: LOYD BLANDON MR#: [id number] : 1955 Acct:[id number] Age/Sex: 68 / M ADM Date: 12/07/23 Loc: US Attending Dr: Bryanna-Staff Physician Wei Ordering Physician: Maddy Duarte M.D. Date of Service: 12/07/23 Procedure(s): US paracentesis abd w/image Accession Number(s): [id number] cc: SANJAY ROBLEDO ; PhysicianMaddy M.D. The [address] [address] Patient Name: LOYD BLANDON MRN: [id number] date: 1955 Sex: M Assigned Patient Location: ED.MAIN Current Patient Location: ED.MAIN Accession/Order Number: [id number] Exam Date: 12/07/2023 12:20 Report Date: 12/07/2023 [...] Signed By: 12/07/23 1513 DD/ 1511 TD/TT: Behavioral Science Chair: EDDIE HealthcareRadiology Study observation (narrative)EDDIE MixUS PARACENTESIS ABD W/IMAGEOrdered By: Radiologist Radiology on 75-43-2711NNEP [employer] Work Phone: [phone] [phone]. Burns in clinic, order placed and faxed to [facility] at [phone] County Hospital36Wife calls stating that patient is in need of an order for paracentesis. Order will need to be sent to [facility] HospitalOrders Onlyon 38-01-0025Tqvqbs [id number] Loyd Blandon 1955 M Date Provider Department Center 12/01/202381268-SMLLYRENARD HAZEL MP [facility] No family history on fileNormalUniversity of Hca Houston Healthcare North CypressHPon 06-27-7978GK Attestation signed by Irena Johnson MD at [...] PROT B12/Folate/Iron studies: No results found for: HMDCOBGP51 , FOLATE , IRON , TIBC , UIBC , IRONSAT , FERRITIN ASSESSMENT AND PLAN Loyd Blandon is a 68 y.o. male who has a known past medical history significant for alcoholic liver cirrhosis, Recinos's esophagus and hepatic encephalopathy is scheduled today for an EGD for esophageal varices screening. Plan: Plan for EGD today for esophageal varices secondary to liver cirrhosis.Normal [facility] HospitalPOCT GLUCOSE METER UNSOLICITED RESULTSon 72-01-4911Vghmsfr [Mass/Vol]101 mg/mXCowtwh62-338UplqkrfameDetwiler Memorial HospitalComment on above:Order Comment: Waived Testing in the ED is performed under the ED CLIA certificate #[id number].Result Comment: jhsusiemanPerformed By: #### [id number] ####[facility] H[facility] LAB (BEAKER)[address] [place], [place] [address] on 10-40-485130Qbdztd submittedNormalUniversAvita Health System Galion HospitalOrders Onlyon 85-17-6220Oypsnc [id number] Loyd Blandon 1955 M Date Provider Department Center 11/21/2023 BROOKLYNN ZEPEDA MP [facility] No family history on fileNormalUniversity Riverside Methodist HospitalPrep for Procedureon 12-05-5566Rmrs for [id number] Loyd Blandon 1955 M Date Provider Department Center 11/21/2023 IRENA SCHMIDT [facility] GISC [place] No family history on fileNormalUniversity Riverside Methodist HospitalMR ABDOMEN W AND WO CONTRASTon 68-37-3367VZ ABDOMEN W AND WO CONTRASTHistory: Cirrhosis with [...] recommended. Electronically signed: Adalid Montiel. 9Invalid Interpretation CodeUnDetwiler Memorial HospitalOrders Only24-23-1954Txdxoo [id number] Loyd Blandon 1955 M [facility] Department Center 11/08/2023 [address]-EFGYPV, BETH [facility] No family history on fileNormalUniversAvita Health System Galion Hospital36on 02-80-507976Oyuhkzw's calling to verify that Dr. Miles will now be prescribing the Famotidine and Baclofen because the previously prescribing physician no longer will now that he is a [facility] GI patient. The preferred pharmacy is [facility] in [place]. Please advise and these orders can then be pended.NormalUnDetwiler Memorial HospitalOrders Only67-47-7416Cdqbel [id number] Loyd Blandon 1955 M Date [facility] Department Center 11/02/2023 [id number], [facility] MP GI Medical Pavi No family history on fileNormalUniversity of [facility] Cypress36on 74-15-899423B called the patient and his to discuss [...] undergoing MRI of his liver on the .[facility] HospitalOrders Onlyon 34-57-8697Vygnkp [id number] Loyd Blandon 1955 M Date Provider Department Center 10/26/202362919-BIJXORENARD HAZEL MP [facility] No family history on fileNormalUniversdoctors hospital of Hca Houston Healthcare North CypressTelephoneon [id number] Loyd Blandon 1955 M Date Provider Department Center 10/26/202331537-VBWPLRENARD HAZEL MP [facility] No family history on fileNormalUniversdoctors hospital of Hca Houston Healthcare North CypressOrders Onlyon 86-28-7582Umoetw [id number] Loyd Blandon 1955 M Date Provider Department Center 10/24/2023 I5513-[id number], MAGALIS [facility] No family history on fileNormalUniversdoctors hospital of Hca Houston Healthcare North CypressALL BASIC METABOLIC PANELon 47-68-9705Eplek gap [Moles/Vol]14.7 mmol/LNOMS Healthcare Calcium [Mass/Vol]9.2 mg/dL8.5 - 10.1 mg/dLNOMS HealthcareChloride [Moles/Vol] 100 mmol/L98 - 107 mmol/LNOMS HealthcareCO2 [Moles/Vol]24.7 mmol/L21.0 - 32.0 mmol/LNOMS HealthcareCreatinine [Mass/Vol]1.40 mg/dLHigh0.70 - 1.30 mg/dLNOMS HealthcareGFR/1.73 sq M.predicted CKD-EPI (S/P/Bld) [Vol rate/Area]>6060 - PINF [facility] SpringsGlucose [Mass/Vol]130 mg/oNNppl07 - 106 mg/dLSaint Mary's Hospital of Blue Springs Interpretation and review of laboratory resultsAbnoGeisinger Community Medical CenterPotassium [Moles/Vol]4.4 mmol/L3.5 - 5.1 mmol/LNOMS HealthcareSodium [Moles/Vol]135 mmol/L Igs132 - 145 mmol/LNTwo Rivers Psychiatric HospitalTBH EGFR-NON AF DLKSRUZK99Kja44 - PINFNONevada Regional Medical CenterUrea nitrogen [Mass/Vol]19.0 mg/dLHigh7.0 - 18.0 mg/dLSaint Mary's Hospital of Blue Springs Urea nitrogen/Creatinine [Mass ratio]13.6 mg/mgSaint Mary's Hospital of Blue SpringsCLINISYNCNTwo Rivers Psychiatric HospitalALL CBC WITH AUTO DIFFon 21-78-8677DGEPLSDBO ABSOLUTE AUTO0.0NONevada Regional Medical CenterBasophils/100 WBC (Bld)0.8 %0.2 - 2.0 %[facility] Blue SpringsEosinophils/100 WBC (Bld)2.6 %0.9 - 7.0 %[facility] Blue SpringsErythrocyte distribution width (RBC) [Ratio]14.6 %11.0 - 15.0 %[facility] Blue SpringsHematocrit (Bld) [Volume fraction]37.5 %Low42.0 - 54.0 %[facility] SpringsHemoglobin (Bld) [Mass/Vol]12.8 g/dLLow14.0 - 18.0 g/dLSaint Mary's Hospital of Blue SpringsIMMATURE GRANULOCYTES ABS AUTO0.03NONevada Regional Medical Center Immature granulocytes/100 WBC (Bld)0.6 %High0.0 - 0.5 %[facility] Interpretation and review of laboratory resultsAbnoGeisinger Community Medical Center LYMPHOCYTES ABSOLUTE AUTO0.8LowSaint Mary's Hospital of Blue SpringsLymphocytes/100 WBC (Bld)15.2 %Low 20.5 - 60.0 %[facility] Blue SpringsMCH (RBC) [Entitic mass]34.0 pg25.9 - 34.0 pgSaint Mary's Hospital of Blue SpringsMCHC (RBC) [Mass/Vol]34.1 g/dL29.9 - 35.2 g/dLSaint Mary's Hospital of Blue SpringsMCV (RBC) [Entitic vol]99.7 qHIsxs04.0 - 94.0 fLSaint Mary's Hospital of Blue SpringsMONOCYTES ABSOLUTE AUTO0.7 NOMS HealthcareMonocytes/100 WBC (Bld)14.0 %High1.7 - 12.0 %[facility] Healthcare NEUTROPHILS ABSOLUTE AUTO3.4NOMS HealthcareNeutrophils/100 WBC (Bld)66.8 %43.0 - 75.0 %NOMS HealthcarePlatelet mean volume (Bld) [Entitic vol]9.8 fL9.5 - 13.5 fL [facility] HealthcareTBH EO #0.1NOMS HealthcareTB OGL296MGWX [facility] HospitalTB RBC3.76Low NOMMercy Hospital St. Louis WBC5.1NOMS HealthcareCLINISYNCNCameron Regional Medical CenterOH PROTHROMBIN TIME INR W/O COUMon 05-88-0992Licyyafzooibei and review of laboratory resultsAbnormalNOMS HealthcarePT Coag (PPP) [Time]12.2 sHighNFreeman Orthopaedics & Sports Medicine INR1.17NOMS HealthcareComment on above:DESIRED INR: 2.0-3.0 CONDITIONS NOT LISTED BELOW 2.5-3.5 FOR PROSTHETIC HEART VALVE REPLACEMENT 2.5-3.5 RECURRENT THROMBOSIS CLINISYNCNOMS HealthcareUS PARACENTESIS ABD W/IMAGEon 10-42-5146Nmp[place], [place] [address] Ultrasound Report Signed Patient: LOYD BLANDON MR#: [id number] : 1955 Acct:[id number] Age/Sex: 68 / M ADM Date: 10/23/23 Loc: US Attending Dr: Non-Staff Physician Eriberto Ordering Physician: Physician,Non-Staff Eriberto Date of Service: 10/23/23 Procedure(s): US paracentesis abd w/image Accession Number(s): [id number] cc: SANJAY ROBLEDO ; Physician,Non-Staff Eriberto The [address] [address] Patient Name: LOYD BLANDON MRN: [id number] date: 1955 Sex: M Assigned Patient Location: US Current Patient Location: US Accession/Order Number: [id number] Exam Date: 10/23/2023 13:05 Report Date: 10/23/2023 [...] Signed By: 10/23/23 1506 DD/ 1503 TD/TT: Behavioral Science Chair:TBHRadiology, Radiologist, - 10/23/2023 [place] [address] Ultrasound Report Signed Patient: LOYD BLANDON MR#: [id number] : 1955 Acct:[id number] Age/Sex: 68 / M ADM Date: 10/23/23 Loc: US Attending Dr: Non-Staff Physician Eriberto Ordering Physician: Yolanda DuarteStaff Eriberto Date of Service: 10/23/23 Procedure(s): US paracentesis abd w/image Accession Number(s): [id number] cc: SANJAY ROBLEDO ; Yolanda DuarteStaff Eriberto The [place] [id number] Patient Name: LOYD BLANDON MRN: [id number] date: 1955 Sex: M Assigned Patient Location: US Current Patient Location: US Accession/Order Number: [id number] Exam Date: 10/23/2023 13:05 Report Date: 10/23/2023 [...] Signed By: 10/23/23 1506 DD/ 1503 TD/TT: Behavioral Science Chair: EDDIE MixRadiology Study observation (narrative)EDDIE MixUS PARACENTESIS ABD W/IMAGEOrdered By: Radiologist Radiology on 01-19-4132VRZY [employer] Work Phone: Orders Onlyon 13-83-2714Dmlvnc [id number] Loyd Blandon 1955 M Date Provider Department Center 10/20/2023 Olinda-RUFINO MATHUR [facility] No family history on fileNormalUniversity of Hca [facility] Cypress36on 65-98-921244L called the patient's to discuss the results [...] we can follow-up on his sodium level.Normal [facility]36Patients called stating they were called yesterday [...] call back from you to clarify some things.NormalGuernsey Memorial HospitalOrders Onlyon 32-74-5280Nzsqdn [id number] JamiaLoyd 1955 M Date Provider Department Center 10/18/2023 EKATERINA ALMARAZ [facility] No family history on fileNormalUniversAvita Health System Galion HospitalTelephoneon [id number] Loyd Blandon 1955 M Date Provider Department Center 10/18/202338585-RWCEXRENARD TAYLOR MP [facility] No family history on fileNormalUniversity Riverside Methodist HospitalOrders Onlyon 12-87-3721Nvsuid [id number] JamiaLoyd 1955 M Date Provider Department Center 10/17/202307926-DIFJNRENARD ESPOSITO MP GI Medical [facility]avi No family history on fileNormalUniversAvita Health System Galion HospitalDocumentation on [id number] Loyd Blandon 1955 M Date Provider Department Center 10/16/2023 JOSH NICOLE [facility] Pavi No family history on file Reason for Visit and Comments: Specialty Pharmacy Note: Xifaxan PAP [Other]NormalUnDetwiler Memorial HospitalPrep for Procedureon 81-68-1929Hiry for [id number] Loyd Blandon 1955 M Date Provider Department Center 10/16/2023 298-IRENA JOHNSON [facility] No family history on fileNormalUniversAvita Health System Galion HospitalBASIC METABOLIC PANELon 68-86-5433Iswcn gap [Moles/Vol]14 mmol/LNormal7-20UnDetwiler Memorial HospitalComment on above:Performed By: #### [id number] #### [facility] ([place]) [address] [place], [place] [address]Tfnmtiv [Mass/Vol]9.1 mg/dLNormal8.6-10.3UnDetwiler Memorial HospitalComment on above:Performed By: #### [id number] #### [facility] ([facility]) [address] [place], [place] [address]Ykgzzqkf [Moles/Vol]96 mmol/TOui24-279ZeqxnnziswDetwiler Memorial HospitalComment on above:Performed By: #### [id number] #### [facility] ([facility]) [address] [place], [place] [address]FP7 [Moles/Vol]22 mmol/ESbflfs22-83WbxmxucqvyDetwiler Memorial HospitalComment on above:Performed By: #### [id number] #### [facility] ([facility]) [address] [place], [place] [address]Aofalvyfke [Mass/Vol]1.00 mg/dLNormal0.70-1.30UnDetwiler Memorial HospitalComment on above:Performed By: #### [id number] #### [facility] ([facility]) [address] [place] [address]YUKNLKNMIO FILTRATION RATE ML/MIN/1.73 SQ M.BLIQIOSHN70.0 mL/min/1.73m*2Normal>60.0UnDetwiler Memorial HospitalComment on above: Result Comment: [facility]???s estimated glomerular filtration rate (eGFR) [...] affect anyone group of individuals.Performed By: #### [id number] #### [facility] ([facility]) [address] [place] [address]Vhsjeym [Mass/Vol]108 mg/lQHztz20-352XvyrptkqkcDetwiler Memorial HospitalComment on above:Performed By: #### [id number] #### [facility] ([facility]) [address] QUIJANOJ[place]SW[place]OW [place], [place] [address]Zihcbypfa [Moles/Vol]4.8 mmol/LNormal3.5-5.1UnDetwiler Memorial HospitalComment on above:Performed By: #### [id number] #### [facility] ([facility]) [address] [place] [address]Ykskye [Moles/Vol]127 mmol/GOob598-419XnugrehozcDetwiler Memorial HospitalComment on above:Performed By: #### [id number] #### [facility] ([facility]) [address] [place] [place], [place] [address]Ctlu nitrogen [Mass/Vol]13 mg/dLNormal7-25UnDetwiler Memorial HospitalComment on above:Performed By: #### [id number] #### [facility] ([facility]) [address] [facility]ITALLeón QUIJANOJENNINGSWILLOW SPR[place], [place] [address]APCH NITROGEN/CREATININE (MASS RATIO) IN SER/PLAS13.0Normal [facility]sey Memorial HospitalComment on above:Performed By: #### [id number] #### [facility] ([facility]) [address] [place] [address]VYJpe 91-98-1126Voohrzogoaj distribution width (RBC) [Ratio]14.2 %Fusnvb20.5-15.0UnDetwiler Memorial HospitalComment on above:Performed By: #### [id number] #### [facility] ([facility]) [address] [place] [address]AXEXRIXPONZ MEAN CORPUSCULAR HEMOGLOBIN CONCENTRATION (G/DL) BY DIJVUNYKE32.5 g/dVBktvrh50.0-35.0UnDetwiler Memorial HospitalComment on above:Performed By: #### [id number] #### [facility] ([facility]) [address] [place] [address]Ddqyykuphr (Bld) [Volume fraction]38.0 %Low39.0-55.0UnDetwiler Memorial HospitalComment on above:Performed By: #### [id number] #### [facility] ([facility]) [address] [place] [address]Tuihrmpvpu (Bld) [Mass/Vol]13.1 g/oHEockzr31.0-17.0UnDetwiler Memorial HospitalComment on above:Performed By: #### [id number] #### [facility] ([facility]) [address] [place] [address]PDR (RBC) [Entitic mass]34.4 rtHaos94.0-33.0UnDetwiler Memorial HospitalComment on above:Performed By: #### [id number] #### [facility] ([facility]) [address] [place] [address]IJN (RBC) [Entitic vol]99.7 tBOeou57.0-98.0UnDetwiler Memorial HospitalComment on above:Performed By: #### [id number] #### [facility] ([facility]) [address] [place] [address]EQCBGLEKL (10*3/UL) IN BLOOD AUTOMATED UKXIL757 10*3/uLNormal 150-400UnDetwiler Memorial HospitalComment on above:Performed By: #### [id number] #### [facility] ([facility]) [address] [place] [address]UFE (Bld) [#/Vol]3.81 10*6/uLLow4.20-5.70UnDetwiler Memorial HospitalComment on above:Performed By: #### [id number] #### [facility] ([facility]) [address] [place] [address]BRJ (Bld) [#/Vol]6.20 10*3/uLNormal4.00-10.60UnDetwiler Memorial HospitalComment on above:Performed By: #### [id number] #### [facility] ([facility]) [address] [place] [address]EAFJFAB FUNCTION PANELon 53-72-8459Tduawxn [Mass/Vol]3.4 g/dLLow 3.5-5.7UnDetwiler Memorial HospitalComment on above:Performed By: #### [id number] #### [facility] ([facility]) [address] [place] [address]ZMR [Catalytic activity/Vol]114 U/RUnpx05-468OlvukmhhfpDetwiler Memorial HospitalComment on above:Performed By: #### [id number] #### [facility] ([facility]) [address] [place] [address]KPB [Catalytic activity/Vol]23 U/LNormal7-52UnDetwiler Memorial HospitalComment on above:Performed By: #### [id number] #### [facility] ([facility]) [address] [place], [place] [address]TQY [Catalytic activity/Vol]48 U/JBlqk14-42WqtpflhlopDetwiler Memorial HospitalComment on above:Performed By: #### [id number] #### [facility] ([facility]) [address] [place] [address]Evohhdwuh [Mass/Vol]1.5 mg/dLHigh0.3-1.0UnDetwiler Memorial HospitalComment on above:Performed By: #### [id number] #### [facility] ([place]) [address] [place] [address]Vkrnsmqwr [Mass/Vol]0.5 mg/dLHigh0-0.2UnDetwiler Memorial HospitalComment on above:Performed By: #### [id number] #### [facility] ([facility]) [address] [place] [address]Rblxuij [Mass/Vol]7.8 g/dLNormal6.0-8.3UnDetwiler Memorial HospitalComment on above:Performed By: #### [id number] #### [facility] ([place]) [address] [place] [address]Qrcej [id number] Loyd Blandon 1955 M Date Provider Department Center 10/13/2023 2244-[facility] MP LAB RESOURCE MP DRAW Medical Pavi No family history on fileNormalUniversity Riverside Methodist HospitalOffice Visiton 23-63-5312Cahmsn-up [id number] Loyd Blandon 1955 M Date Provider Department Center 10/13/2023 298-IRENA JOHNSON GI Medical Pavi No family history on file Level of Service:43967 [place] OFFICE/OUTPATIENT ESTABLISHED HIGH MDM 40 MIN () Reason for Visit and Comments: Cirrhosis [239] Ascites [295]NormalUnDetwiler Memorial HospitalPROTIME-INRon 10-13-2023 INR IN PPP BY COAGULATION ASSAY1.44Uaqx7.90-1.10UnDetwiler Memorial HospitalComment on above:Result Comment: ACCCP RECOMMENDED INR FOR [...] OPTIMAL THERAPEUTIC RANGE. CHEST 1995;108:231S-246S.Performed By: #### [id number] #### [facility] ([employer]) [address] [place] [place], [place] [address]JFHUYGIXAZC TIME (PT) IN PPP BY COAGULATION ASSAY14.9 Seconds High12.3-14.8UnDetwiler Memorial HospitalComment on above:Performed By: #### [id number] #### [facility] ([facility]) [address] [place] [place], [place] [address]Yffkbe Onlyon 95-12-9146Dvymed [id number] Loyd Blandon 1955 M Date Provider Department [place] 10/06/2023 W0775-YZVNTJOK, HISTORICAL MP GI Medical Pavi No family history on fileNormalUniversity of Hca Houston Healthcare North CypressALL MISCELLANEOUS TESTon [id number] TESTCOMMENT.NOMS HealthcareComment on above:Test Ordered: [id number] Albumin, Body Fluid Albumin, Body Fluid 0.4 g/dL Reference Range: Not Estab. The reference interval(s) and other method performance specifications have not been established for this body fluid. The test result must be integrated into the clinical context for interpretation. Performed at: - Lab[address] [id number] Professor Of Astronomy: John Tang PhD, Phone: [phone] Albumin, Body Fluid CLINISYNCNo Panel Informationon [id number] HealthcarePROTEIN, BODY FLUIDon [id number], BODY FLUID1.1 g/dL.NOMS HealthcareComment on above: : [...] 2008. Ninth Edition (V9.1) [employer] [facility] [employer], [facility]; [place]: October 2008. Performed at: [facility] [address] [id number] Professor Of Astronomy: John Tang PhD, Phone: [phone] CLINISYNCCELL CT, SEROUS FLUIDon 18-96-1135IZFNLQA, SEROUSSlightly hazyClearNOMS HealthcareCOLOR, SEROUSStraw.NOMS HealthcareComment on above:Colorless to Pale Yellow/Straw COMMENTS:TNP.NOMS HealthcareEosinophils/100 WBC (Bld)0 %Not Estab.NOMS HealthcareLINING CELLS, SEROUS7 %Not Estab.NOMS HealthcareComment on above: Performed at: - [facility] [id number] Professor Of Astronomy: John Tang PhD, Phone: [phone] Lymphocytes/100 WBC (Bld)9 %Not Estab.NOMS HealthcareMACROPHAGES, NZZOZC66 %Not Estab.NOMS HealthcareNeutrophils/100 WBC (Bld)13 %0 - 24 %[facility] NUCLEATED CELLS, AAIHKV389 /mm30 - 499 /bc2XSYT HealthcareComment on above: Pleural Fluid, with <1000 Nucleated cells/uL has been associated with transudates while >1000 uL may be seen in exudates. RBC (Bld) [#/Vol]0 10*6/uLNot Estab.NOMS HealthcareCLINISYNCNOMS HealthcareIGG, SUBCLASSES(1-4)on 99-64-6340PFH, SUBCLASS 1855 mg/uSLmkpjwmw762 - 810 mg/dLNOMS HealthcareIGG, SUBCLASS 2365 mg/dL130 - 555 mg/dLNOMS HealthcareIGG, SUBCLASS 3 68 mg/dL15 - 102 mg/dLNOMS HealthcareIGG, SUBCLASS 452 mg/dL2 - 96 mg/dLNOMS HealthcareComment on above:Performed at: [facility] [place] [id number] Professor Of Astronomy: John Tang PhD, Phone: [phone] IMMUNOGLOBULIN G, QN, HCQNN4191 mg/dL603 - 1613 mg/dLNOMS Healthcare Interpretation and review of laboratory resultsAbnormalSaint Mary's Hospital of Blue SpringsCLINISYN NOMS HealthcareUS PARACENTESIS ABD W/IMAGEon 64-60-6197N[address] [address] Ultrasound Report Signed Patient: LOYD BLANDON MR#: [id number] : 1955 Acct:[id number] Age/Sex: 68 / M ADM Date: 10/03/23 Loc: US Attending Dr: Jason Miles M.D. Ordering Physician: Jason Miles M.D. Date of Service: 10/03/23 Procedure(s): US paracentesis abd w/image Accession Number(s): [id number] cc: SANJAY ROBLEDO ; Jason Miles M.D. [address] [address] Patient Name: LOYD BLANDON MRN: [id number] date: 1955 Sex: M Assigned Patient Location: US Current Patient Location: US Accession/Order Number: [id number] Exam Date: 10/03/2023 10:50 Report Date: 10/03/2023 [...] Signed By: 10/03/23 1314 DD/ 1311 TD/TT: Behavioral Science Chair:TBHRadiology, Radiologist, - 10/03/2023 [place] [address] Ultrasound Report Signed Patient: LOYD BLANDON MR#: [id number] : 1955 Acct:[id number] Age/Sex: 68 / M ADM Date: 10/03/23 Loc: US Attending Dr: Jason Miles M.D. Ordering Physician: Jason Miles M.D. Date of Service: 10/03/23 Procedure(s): US paracentesis abd w/image Accession Number(s): [id number] cc: SANJAY ROBLEDO ; Jason Miles M.D. The [address] [address] Patient Name: LOYD BLANDON MRN: [facility]:[id number] date: 1955 Sex: M Assigned Patient Location: US Current Patient Location: US Accession/Order Number: [id number] Exam Date: 10/03/2023 10:50 Report Date: 10/03/2023 [...] Signed By: 10/03/23 1314 DD/ 1311 TD/TT: Behavioral Science Chair: EDDIE HealthcareRadiology Study observation (narrative)EDDIE MixUS PARACENTESIS ABD W/IMAGEOrdered By: Radiologist Radiology on 46-07-7472MIPF Healthcare Work Phone: Orders Onlyon 02-54-8507Gyxxpg [id number] Loyd Blandon 1955 M Date Provider Department Center 09/27/2023 204-HARSHA CONNER [facility] No family history on fileNormalUniversity Riverside Methodist HospitalCREATININE, SERUMon 20-07-8163Delffdsavd [Mass/Vol]1.06 mg/dLNormal0.70-1.30UnDetwiler Memorial HospitalComment on above:Performed By: #### [id number] #### [facility] HOSPITAL LAB (BEAKER) [address] [place], [place] [address]LQTKHTIYEU FILTRATION RATE ML/MIN/1.73 SQ M.VMCPZZZTH98.5 mL/min/1.73m*2Normal>60.0UnDetwiler Memorial HospitalComment on above: Result Comment: [facility]???s estimated glomerular filtration rate (eGFR) [...] affect anyone group of individuals.Performed By: #### [id number] #### [facility] LAB (MILLIE) [address] [place] [place], [place] [address]ZJG ABDOMEN PELVIS W IV CONTRASTon 10-00-4887LVE ABDOMEN PELVIS W IV CONTRASTCLINICAL INFORMATION: Abdominal [...] signed: Camila Gan MD. Not Eran Interpretation CodeUnDetwiler Memorial HospitalLabon [id number] JamiaLoyd rivera 1955 M Date Provider Department Center 09/25/2023 2245-[facility] OPD LAB RESOURCE [facility] OPD MT Medical C No family history on fileNormalUniversity of Hca Houston Healthcare North CypressOrders Onlyon 82-25-7174Kabuoe [id number] JamiaLoyd rivera 1955 M Date Provider Department Center 09/23/2023 204-HARSHA CONNER [facility] GI [facility] No family history on fileNormalUniversity of Hca Houston Healthcare North CypressOrders Only40-74-2147Cynyoc [id number] Jamia,Loyd 1955 M Date Provider Department Center 09/15/2023 BROOKLYNN ZEPEDA MP GI Medical Pavi No family history on fileNormalUniversity of Hca Houston Healthcare North CypressOrders Onlyon 25-28-4629Wfbkes [id number] Loyd Blandon 1955 M Date Provider Department Center 09/14/2023 BROOKLYNN ZEPEDA MP [facility]avi No family history on fileNormalUniversity of Hca Houston Healthcare North CypressMR HEAD/BRAIN WO CONon 36-80-8591XvxBoyd, [place] [address] Magnetic Resonance Report Signed Patient: LOYD BLANDON MR#: [id number] : 1955 Acct:[id number] Age/Sex: 68 / M ADM Date: 09/12/23 Loc: MRI Attending Dr: Ward Esparza M.D. Ordering Physician: WARD ESPARZA Date of Service: 09/12/23 Procedure(s): MR head/brain wo con Accession Number(s): [id number] cc: WARD ESPARZA ; SANJAY ROBLEDO [place] [id number] Patient Name: LOYD BLANDON MRN: [id number] date: 1955 Sex: M Assigned Patient Location: MRI Current Patient Location: MRI Accession/Order Number: [id number] Exam Date: 09/12/2023 08:17 Report Date: 09/12/2023 [...] Signed By: 09/12/23 1117 DD/ 1115 TD/TT: Behavioral Science Chair:MONTYadiologteresa, Radiologist, - 09/12/2023 [place] [address] Magnetic Resonance Report Signed Patient: LOYD BLANDON MR#: [id number] : 1955 Acct:[id number] Age/Sex: 68 / M ADM Date: 09/12/23 Loc: MRI Attending Dr: Ward Esparza M.D. Ordering Physician: WARD ESPARZA Date of Service: 09/12/23 Procedure(s): MR head/brain wo con Accession Number(s): [id number] cc: WARD ESPARZA ; SANJAY ROBLEDO [place] [address] Patient Name: LOYD BLANDON MRN: [id number] date: 1955 Sex: M Assigned Patient Location: MRI Current Patient Location: MRI Accession/Order Number: [id number] Exam Date: 09/12/2023 08:17 Report Date: 09/12/2023 [...] Signed By: 09/12/23 1117 DD/ 1115 TD/TT: Behavioral Science Chair: EDDIE HealthcareRadiology Study observation (narrative)[facility] HEAD/BRAIN WO CONOrdered By: Radiologist Radiology on 73-34-1924FZNI Healthcare Work Phone: Orders Onlyon 09-08-3283Egxzcs [id number] Loyd Blandon 1955 M Date Provider Department Center 08/28/2023 [id number], HISTORICAL MP GI Medical Pavi No family history on fileNormalUniversity of Hca Houston Healthcare North CypressBasophils Auto (Bld) [#/Vol]Ordered By: Brayan Alves on 84-12-2786Jvvobyuff (Bld) [#/Vol] 0.0 10*3/uL0.0-0.2FThe Jewish HospitalBasophils/100 WBC Auto (Bld) Ordered By: Brayan Alves on 52-76-8178Gqtiqqzlc/100 WBC (Bld)0.7 %. [facility] HospitalCalcium [Mass/volume] in Serum or PlasmaOrdered By: Brayan Alves on 43-21-8990Ihfegqp [Mass/Vol]8.6 mg/dL8.6-10.3FThe Jewish HospitalCarbon dioxide, total [Moles/volume] in Serum or Plasma Ordered By: Brayan Alves on 01-94-2718ZX8 [Moles/Vol]27.3 mmol/L21.0-31.0 [facility] HospitalChloride [Moles/volume] in Serum or Plasma Ordered By: Brayan Alves on 41-38-1182Pklpqbel [Moles/Vol]96 mmol/L98-107 [facility] HospitalCreatinine [Mass/volume] in Serum or Plasma Ordered By: Brayan Alves on 80-29-1313Rzrhppwvri [Mass/Vol]1.07 mg/dL 0.70-1.30[facility] HospitalEosinophils Auto (Bld) [#/Vol]Ordered By: Brayan Alves on 61-00-0120Phnpszkmrgr (Bld) [#/Vol]0.1 10*3/uL0.0-0.45 [facility] HospitalEosinophils/100 WBC Auto (Bld)Ordered By: Brayan Alves on 13-02-0493Jbmolfzsvki/100 WBC (Bld)1.9 %.[facility] HospitalErythrocyte distribution width Auto (RBC) [Ratio]Ordered By: Brayan Alves on 11-73-2777Jfhcrgszzsl distribution width (RBC) [Ratio]13.8 %12.0-14.8[facility] HospitalGlucose [Mass/volume] in Serum or PlasmaOrdered By: Brayan Alves on 17-61-2173Ochoxab [Mass/Vol]132 mg/dL 70-100Pro[facility]aconess HospitalComment on above:ADA recommended reference rangeRandom Glucose Reference Range is dependent on time and content of last meal. Glucose of more than 200 mg/dL in a nonstressed, ambulatory subject supports the diagnosisof Diabetes Mellitus.Hematocrit Auto (Bld) [Volume fraction]Ordered By: Brayan Alves on 06-44-1790Yrvrncuagz (Bld) [Volume fraction]35.5 %38.8-50.0[facility] HospitalHemoglobin [Mass/volume] in BloodOrdered By: Brayan Alves on 12-13-1963Gkvqkhibqr (Bld) [Mass/Vol]12.5 g/dL13.0-17.0[facility] HospitalLeukocytes [#/volume] corrected for nucleated erythrocytes in Blood by Automated coun Ordered By: Brayan Alves on 71-55-1284KWV corrected for nucl RBC Auto (Bld) [#/Vol]5.7 10*3/uL4.1-10.5FThe Jewish HospitalLymphocytes Auto (Bld) [#/Vol]Ordered By: Brayan Alves on 37-05-5141Bqanjyflywu (Bld) [#/Vol]0.7 10*3/uL1.00-4.8[facility] HospitalLymphocytes/100 WBC Auto (Bld)Ordered By: Brayan Alves on 11-09-5233Felefiatigi/100 WBC (Bld) 13.2 %.[facility] Auto (RBC) [Entitic mass]Ordered By: Brayan Alves on 59-04-3684RMD (RBC) [Entitic mass]36.2 pg27.5-35.2FThe Jewish HospitalMCHC Auto (RBC) [Mass/Vol]Ordered By: Brayan Alves on 30-94-6861TRYG (RBC) [Mass/Vol]35.2 g/dL32.5-35.6FThe Jewish HospitalMCV Auto (RBC) [Entitic vol]Ordered By: Brayan Alves on 72-88-5735CKP (RBC) [Entitic vol]102.9 fL83.5-101[facility] HospitalMonocytes Auto (Bld) [#/Vol]Ordered By: Brayan Alves on 76-23-0309Mptjeuoml (Bld) [#/Vol]0.9 10*3/uL0.0-0.8[facility] HospitalMonocytes/100 WBC Auto (Bld)Ordered By: Brayan Alves on 08-56-6497Hyvcfqdbk/100 WBC (Bld)15.7 %. [facility] HospitalNeutrophils Auto (Bld) [#/Vol]Ordered By: Brayan Alves on 47-37-2211Kaktialfjdd (Bld) [#/Vol]3.9 10*3/uL1.8-7.7 [facility] HospitalNeutrophils/100 WBC Auto (Bld)Ordered By: Brayan Alves on 05-43-6667Mvgoivstuap/100 WBC (Bld)68.5 %.[facility] HospitalNo Panel InformationOrdered By: Brayan Alves on 40-96-2597Ouhizxltq GFR (CKD-EPI)> 60.0 mL/MinProtestant Deaconess Hospital Pharmacy Creatinine Clearance (ChemN/AFThe Jewish HospitalNucleated erythrocytes [Presence] in Blood by Automated countOrdered By: Brayan Alves on 93-17-6917Novnbhkro RBC Auto Ql (Bld)0.1 /100{WBC}0-0.5FThe Jewish HospitalPlatelet mean volume Auto (Bld) [Entitic vol]Ordered By: Brayan Alves on 91-98-0594Zpjdkiak mean volume (Bld) [Entitic vol]8.1 fL 6.6-10.1FThe Jewish HospitalPlatelets Auto (Bld) [#/Vol]Ordered By: Brayan Alves on 85-19-6599Abrulstvi (Bld) [#/Vol]153 10*3/bK815-815 [facility] HospitalPotassium [Moles/volume] in Serum or Plasma Ordered By: Brayan Alves on 12-18-7493Ovnhafyzb [Moles/Vol]4.8 mmol/L 3.5-5.1FThe Jewish HospitalRBC Auto (Bld) [#/Vol]Ordered By: Brayan Alves on 06-67-1995WWF (Bld) [#/Vol]3.45 10*6/uL3.90-5.60Memorial Hospitalerum or plasma anion gap determinationOrdered By: Brayan Alves on 80-94-0056Eqnac gap [Moles/Vol]13.5 mmol/L6.0-15.0Memorial Hospitalodium [Moles/volume] in Serum or PlasmaOrdered By: Brayan Alves on 05-14-7507Vsnnyu [Moles/Vol]132 mmol/O604-396TkypyytjoProtestant Deaconess HospitalUrea nitrogen [Mass/volume] in Serum or PlasmaOrdered By: Brayan Alves on 93-24-2098Ozwl nitrogen [Mass/Vol]12 mg/dL7-25Pro[facility]acon[facility] HospitalWBC Auto (Bld) [#/Vol]Ordered By: Brayan Alves on 94-77-1402WIZ (Bld) [#/Vol]5.7 10*3/uL4.1-10.5FThe Jewish Hospital Albumin [Mass/volume] in Serum or Plasma by Bromocresol green (BCG) dye binding methoOrdered By: Rick Ortega on 97-42-7323Nzyorrm BCG dye [Mass/Vol]3.0 g/dL 3.5-5.7FThe Jewish HospitalBilirubin.total [Mass/volume] in Serum or PlasmaOrdered By: Rick Ortega on 11-09-8726Auxxuvyfc [Mass/Vol]1.3 mg/dL 0.3-1.0[facility]acon[facility] HospitalComment on above:Samples from patients who have taken Naproxen have shown spurious elevation in Total Bilirubin levels. A metabolite of Naproxen, O-desmethylnaproxen, has been shown to interfere with the Baljit-Barrington method for measuring Total Bilirubin.Calcium [Mass/volume] in Serum or PlasmaOrdered By: Rick Ortega on 64-54-2923Ojrxwaj [Mass/Vol]8.3 mg/dL8.6-10.3FThe Jewish HospitalCarbon dioxide, total [Moles/volume] in Serum or PlasmaOrdered By: Rick Ortega on 77-32-6224NK6 [Moles/Vol]27.3 mmol/L21.0-31.0[facility] HospitalComprehensive Metabolic Panelon 25-35-9073Ufjjbsi [Mass/Vol]3.410482 g/dLLow3.5-5.7 g/dLNortNew Lifecare Hospitals of [facility] Sub[facility] Isoflux Other bilirubin [Mass/Vol]1.3268661 mg/dLHigh0.3-1.0 mg/dL [employer] Other Calcium [Mass/Vol]8.9424037 mg/dLLow8.6-10.3 mg/dL [employer] Other CO2 [Moles/Vol]27.33190567 mmol/GLqpear14.0-31.0 mmol/LNGnuBIO Other Creatinine [Mass/Vol]0.01765355 mg/dLNormal0.70-1.30 mg/dLNoStratio [employer] Other GFR/1.73 sq M.predicted MDRD (S/P/Bld) [Vol rate/Area] mL/min/{1.73_m2}[employer] Other Potassium [Moles/Vol]5.75173085 mmol/LNormal3.5-5.1 mmol/LNst. luke's hospital [employer] Other Protein [Mass/Vol]6.191243 g/dLLow6.4-8.9 g/dLNoStratio [employer] Other Comprehensive Metabolic Panel3.3 g/dLD8A [employer] Other Comprehensive Metabolic PanelOrdered By: Rick Ortega on 92-25-7970Yhbwvsb/Globulin [Mass ratio]0.9 {ratio}[facility] HospitalALP [Catalytic activity/Vol]158 U/J34-801YucmqdufiProtestant Deaconess HospitalALT [Catalytic activity/Vol]35 U/L7-52[facility] HospitalAST [Catalytic activity/Vol]76 U/D74-84KgcaufqkyProtestant Deaconess HospitalChloride [Moles/Vol]95 mmol/Q32-735PezngmrapProtestant Deaconess Hospital Glucose [Mass/Vol]94 mg/yN45-371GxfouguhtProtestant Deaconess HospitalComment on above:ADA recommended reference rangeRandom Glucose Reference Range is dependent on time and content of last meal. Glucose of more than 200 mg/dL in a nonstressed, ambulatory subject supports the diagnosisof Diabetes Mellitus. Sodium [Moles/Vol]127 mmol/V897-678Lsjouxvca Regional Medical CenterUrea nitrogen [Mass/Vol]9 mg/dL7-25[facility] HospitalCreatinine [Mass/volume] in Serum or PlasmaOrdered By: Rick Ortega on 04-12-2023 Creatinine [Mass/Vol]0.81 mg/dL0.70-1.30[facility] Globulin Calc (S) [Mass/Vol]Ordered By: Rick Ortega on 65-25-9248Vjdxrjhy (S) [Mass/Vol]3.3 g/dLProtestant Deaconess HospitalNo Panel InformationOrdered By: Rick Ortega on 04-68-5913Tzkfmqdia GFR (CKD-EPI)> 60.0 mL/MinProtestant Deaconess HospitalPharmacy Creatinine Clearance (ChemN/[facility] HospitalPotassium [Moles/volume] in Serum or PlasmaOrdered By: Rick Ortega on 36-60-1044Aqenioaes [Moles/Vol]5.1 mmol/L3.5-5.1FThe Jewish HospitalProtein [Mass/volume] in Serum or PlasmaOrdered By: Rick Ortega on 19-19-0490Apxkfil [Mass/Vol]6.3 g/dL6.4-8.9[facility] Serum or plasma anion gap determinationOrdered By: Rick Ortega on 04-12-2023 Anion gap [Moles/Vol]9.8 mmol/L6.0-15.0[facility] HospitalActin smooth muscle IgG Ab [Units/volume] in SerumOrdered By: Lex Carroll on 26-59-1977Jitwf smooth muscle IgG Qn (S)8 Units0-19[facility] HospitalComment on above:Negative 0 - 19 Weak positive 20 - 30 Moderate to strong positive >30 Actin Antibodies are foundin 52-85% of patients with autoimmune hepatitis or chronic active hepatitis and in 22% of patients with primary biliary cirrhosis.Alanine aminotransferase [Enzymatic activity/volume] in Serum or PlasmaOrdered By: Lex Carroll on 52-98-0149TPK [Catalytic activity/Vol]30 U/L7-52[facility] HospitalAlbumin [Mass/volume] in Serum or Plasma by Bromocresol green (BCG) dye binding methoOrdered By: Lex Carroll on 75-13-6435Vwpexym BCG dye [Mass/Vol]3.6 g/dL3.5-5.7FThe Jewish HospitalAlkaline phosphatase [Enzymatic activity/volume] in Serum or PlasmaOrdered By: Lex Carroll on 28-34-0876UEK [Catalytic activity/Vol]96 U/O32-225ZhvwlcksuProtestant Deaconess HospitalAspartate aminotransferase [Enzymatic activity/volume] in Serum or PlasmaOrdered By: Lex Carroll on 82-69-5999VNU [Catalytic activity/Vol]55 U/T45-77CwtzwfctpProtestant Deaconess HospitalBasophils Auto (Bld) [#/Vol]Ordered By: Lex Carroll on 27-13-9730Hujepobkc (Bld) [#/Vol]0.0 10*3/uL 0.0-0.2FThe Jewish HospitalBasophils/100 WBC Auto (Bld)Ordered By: Lex Carroll on 57-60-1142Oifepssxr/100 WBC (Bld)0.9 %.[facility] HospitalBilirubin.total [Mass/volume] in Serum or PlasmaOrdered By: Lex Carroll on 84-97-2043Ovaiuukok [Mass/Vol]0.9 mg/dL0.3-1.0[facility] HospitalCalcium [Mass/volume] in Serum or PlasmaOrdered By: Lex Carroll on 75-74-3672Bbgqrad [Mass/Vol]8.7 mg/dL8.6-10.3FThe Jewish HospitalCarbon dioxide, total [Moles/volume] in Serum or PlasmaOrdered By: Lex Carroll on 22-43-0572GU2 [Moles/Vol]26.9 mmol/L21.0-31.0[facility] HospitalChloride [Moles/volume] in Serum or PlasmaOrdered By: Lex Carroll on 80-24-6045Ixtfpajz [Moles/Vol]108 mmol/M29-634BekuobdpvProtestant Deaconess HospitalCholesterol [Mass/volume] in Serum or PlasmaOrdered By: Lex Carroll on 01-76-0687Cvovxjiexzp [Mass/Vol]175 mg/gJ431-224WhtivupphProtestant Deaconess HospitalComment on above:Chol less than 200 mg/dl low riskChol 201-239 mg/dl borderline riskChol 240 mg/dl and greater high riskCholesterol in LDL Calc [Mass/Vol]Ordered By: Lex Carroll on 24-65-5629Vsfntwrjhud in LDL [Mass/Vol]94 mg/dL0-100Pro[facility] HospitalComment on above:LDL ATP III CLASSIFICATIONLDL less than 100 mg/dL OptimalLDL 100-129 mg/dL Near or above sjhopmmFIS263-393 mg/dL Borderline highLDL 160-189 mg/dL HighLDL greater than 189 mg/dL Very highCholesterol in VLDL Calc [Mass/Vol]Ordered By: Lex Carroll on 55-77-8021Sdarzqaeoey in VLDL [Mass/Vol]21 mg/dLProtestant Deaconess HospitalCreatinine [Mass/volume] in Serum or PlasmaOrdered By: Lex Carroll on 71-20-1991Zsxjtinbvg [Mass/Vol]0.90 mg/dL0.70-1.30[facility] HospitalEosinophils Auto (Bld) [#/Vol]Ordered By: Lex Carroll on 90-15-9987Oktcetomnbj (Bld) [#/Vol]0.2 10*3/uL0.0-0.45[facility]acon[facility] HospitalEosinophils/100 WBC Auto (Bld)Ordered By: Lex Carroll on 09-21-2022 Eosinophils/100 WBC (Bld)3.6 %.[facility]acon[facility] HospitalErythrocyte distribution width Auto (RBC) [Ratio]Ordered By: Lex Carroll on 09-21-2022 Erythrocyte distribution width (RBC) [Ratio]14.2 %12.0-14.8[facility] HospitalGlobulin Calc (S) [Mass/Vol]Ordered By: Lex Carroll on 56-40-6287Rumxnjmv (S) [Mass/Vol]2.8 g/dLProtestant Deaconess Hospital Glucose [Mass/volume] in Serum or PlasmaOrdered By: Lex Carroll on 09-21-2022 Glucose [Mass/Vol]123 mg/lK38-044AxkhyipoyProtestant Deaconess HospitalComment on above:ADA recommended reference rangeRandom Glucose Reference Range is dependent on time and content of last meal. Glucose of more than 200 mg/dL in a nonstressed, ambulatory subject supports the diagnosisof Diabetes Mellitus. Hematocrit Auto (Bld) [Volume fraction]Ordered By: Lex Carroll on 09-21-2022 Hematocrit (Bld) [Volume fraction]37.5 %38.8-50.0[facility] HospitalHemoglobin [Mass/volume] in BloodOrdered By: Lex Carroll on 09-21-2022 Hemoglobin (Bld) [Mass/Vol]12.9 g/dL13.0-17.0[facility] Hepatitis B virus surface Ag [Presence] in Serum or Plasma by ImmunoassayOrdered By: Lex Carroll on 88-32-5071AVK surface Ag IA QlNegativeNegativeProtestant Deaconess HospitalHepatitis C virus IgG Ab [Presence] in Serum or Plasma by ImmunoassayOrdered By: Lex Carroll on 96-57-8033TIF IgG IA QlNon-ReactiveNon ReactiveProtestant Deaconess HospitalLaboratory - CoagulationOrdered By: Lex Carroll on 54-46-6215TY Coag (PPP) [Time]13.0 s9.0-12.9[facility] HospitalLeukocytes [#/volume] corrected for nucleated erythrocytes in Blood by Automated counOrdered By: Lex Carroll on 97-34-9660SFT corrected for nucl RBC Auto (Bld) [#/Vol]4.2 10*3/uL4.1-10.5FThe Jewish Hospital Lymphocytes Auto (Bld) [#/Vol]Ordered By: Lex Carroll on 36-96-4785Ixfvakeztjo (Bld) [#/Vol]1.1 10*3/uL1.00-4.8[facility] Lymphocytes/100 WBC Auto (Bld)Ordered By: Lex Carroll on 09-21-2022 Lymphocytes/100 WBC (Bld)27.1 %.[facility]acon[facility] HospitalMCH Auto (RBC) [Entitic mass]Ordered By: Lex Carroll on 03-62-1737OLQ (RBC) [Entitic mass] 35.0 pg27.5-35.2FThe Jewish HospitalMCHC Auto (RBC) [Mass/Vol] Ordered By: Lex Carroll on 35-08-9052DEFD (RBC) [Mass/Vol]34.4 g/dL32.5-35.6 [facility] HospitalMCV Auto (RBC) [Entitic vol]Ordered By: Lex Carroll on 25-91-9096NLW (RBC) [Entitic vol]101.9 fL83.5-101[facility] HospitalMonocytes Auto (Bld) [#/Vol]Ordered By: Lex Carroll on 36-72-1275Mjlumiebb (Bld) [#/Vol]0.5 10*3/uL0.0-0.8[facility] HospitalMonocytes/100 WBC Auto (Bld)Ordered By: Lex Carroll on 09-21-2022 Monocytes/100 WBC (Bld)11.3 %.[facility]acon[facility] HospitalNeutrophils Auto (Bld) [#/Vol]Ordered By: Lex Carroll on 29-18-4918Dlqsvxphula (Bld) [#/Vol]2.4 10*3/uL1.8-7.7FThe Jewish HospitalNeutrophils/100 WBC Auto (Bld) Ordered By: Lex Carroll on 56-91-7267Logmrxrqlml/100 WBC (Bld)57.1 %.[facility] HospitalNo Panel InformationOrdered By: Lex Carroll on 97-41-7234Tqciysjzm GFR (CKD-EPI)> 60.0 mL/MinProtestant Deaconess Hospital Hepatitis B Core Total AntibodyNegativeNegativeProtestant Deaconess Hospital Comment on above:Performed at: - [facility] [id number] Director: John Tang PhD, Phone: [phone] Renteria comment.[facility]acon[facility] HospitalComment on above:Not infected with HCV unless early or acute infection issuspected (which may be delayed in an immunocompromisedindividual), or other evidence exists to indicate HCVinfection.Hepatitis C RNA QuantitativeN/[facility] Creatinine Clearance (Chem88.23[facility] Nucleated erythrocytes [Presence] in Blood by Automated countOrdered By: Lex Carroll on 78-71-2496Tvouefolk RBC Auto Ql (Bld)0.2 /100{WBC}0-0.5FThe Jewish HospitalPlatelet mean volume Auto (Bld) [Entitic vol]Ordered By: Lex Carroll on 81-69-9463Kvjcntsq mean volume (Bld) [Entitic vol]9.8 fL 6.6-10.1FThe Jewish HospitalPlatelet poor plasma international normalized ratio (INR) by coagulation assay (relatOrdered By: Lex Carroll on 98-42-4082SPI Coag (PPP) [Relative time]1.1 {INR}[facility] HospitalComment on above:INR Therapeutic Range A) Pre- and [...] Auto (Bld) [#/Vol]Ordered By: Lex Carroll on 61-43-2871Lbwegnohz (Bld) [#/Vol]91 10*3/gJ825-141NwztgixmrProtestant Deaconess HospitalPotassium [Moles/volume] in Serum or PlasmaOrdered By: Lex Carroll on 71-52-4217Vzejiwayf [Moles/Vol]5.0 mmol/L3.5-5.1FThe Jewish HospitalProtein [Mass/volume] in Serum or PlasmaOrdered By: Lex Carroll on 78-20-9270Jlujrcb [Mass/Vol]6.4 g/dL6.4-8.9[facility] HospitalRBC Auto (Bld) [#/Vol]Ordered By: Lex Carroll on 62-35-6036SCW (Bld) [#/Vol]3.68 10*6/uL3.90-5.60[facility] Hospitalerum dijhc-3-srtbrbxthyp measurementOrdered By: Lex Carroll on 23-37-7383Izxky 1 antitrypsin [Mass/Vol] 205 mg/dT492-956PqvwfrroeMemorial Hospitalerum hepatitis B virus surface antibody detectionOrdered By: Lex Carroll on 42-16-1933ZGJ surface Ab Ql (S) Non-Reactive.[facility] HospitalComment on above:Non Reactive: Inconsistent with immunity, less than 10 mIU/mL Reactive: Consistent with immunity, greater than 9.9 mIU/mLSerum mitochondria M2 IgG antibody assay (units/volume)Ordered By: Lex Carroll on 71-48-6791Xunjhjexibbp M2 IgG Qn (S) <20.0 Units0.0-20.0[facility] HospitalComment on above:Negative 0.0 - 20.0 Equivocal 20.1 - 24.9 Positive >24.9Mitochondrial (M2) Antibodies are found in 90-96% ofpatients with primary biliary cirrhosis.Performed at: [employer] [id number] Director: John Tang PhD, Phone: [phone] or plasma albumin/globulin mass ratio Ordered By: Lex Carroll on 13-01-5007Fqgfmke/Globulin [Mass ratio]1.3 {ratio} Memorial Hospitalerum or plasma alpha 1 antitrypsin phenotyping identification by immunofixationOrdered By: Lex Carroll on 71-68-8800Neqfg 1 antitrypsin phenotyping Immunofixation NomMm.[facility] Comment on above:Phenotype Population A-1-AT Concentration* Incidence [...] reference. Ranges used to confirm phenotype.Performed at: [address] [id number] Director: John Tang PhD, Phone: [phone] at: [id number] Director: George Brown MD, Phone: [phone] or plasma anion gap determinationOrdered By: Lex Carroll on 88-97-3936Ruqri gap [Moles/Vol]11.1 mmol/L6.0-15.0Memorial Hospitalerum or plasma ceruloplasmin measurement (mass/volume)Ordered By: Lex Carroll on 74-53-2414Ynezgsfejszhi [Mass/Vol]22.4 mg/dL16.0-31.0[facility] HospitalComment on above:Performed at: [facility] [address] [id number] Director: John Tang PhD, Phone: [phone] or plasma free cefuroxime measurement (mass/volume)Ordered By: Lex Carroll on 18-82-6609Vmxelqgnwm free [Mass/Vol]NegativeNegativeProtestant Deaconess HospitalComment on above:Performed at: [facility] [address] [id number] Director: John Tang PhD, Phone: [phone] or plasma high density lipoprotein (HDL) cholesterol measurementOrdered By: Lex Carroll on 68-23-4445Umvkglxgsha in HDL [Mass/Vol]60 mg/iC28-26FkxymdnesProtestant Deaconess HospitalComment on above:HDL CHOL ATP-III CLASSIFICATION Cardiovascular RiskHDL > or equal to 60 mg/dL LOWHDL < 40 mg/dL HIGHSerum or plasma total cholesterol/high density lipoprotein (HDL) cholesterol mass rat Ordered By: Lex Carroll on 13-32-6641Wktjxwmiqxa.total/Cholesterol in HDL [Mass ratio]2.9 {ratio}<5.0Memorial Hospitalodium [Moles/volume] in Serum or PlasmaOrdered By: Lex Carroll on 30-47-8401Ldwtiw [Moles/Vol]141 mmol/I295-746IazvmipdjProtestant Deaconess HospitalTriglyceride [Mass/volume] in Serum or PlasmaOrdered By: Lex Carroll on 09-21-2022 Triglyceride [Mass/Vol]107 mg/dL0-149[facility] HospitalComment on above:TRIG ATP III CLASSIFICATIONTRIG less than 150 mg/dL NormalTRIG 150-199 mg/dL Borderline highTRIG 200-500 mg/dL High TRIG greater than 500 mg/dL Very highStandard traceable to the Center for Disease Conrtrol and Prevention (CDC) test method.Urea nitrogen [Mass/volume] in Serum or PlasmaOrdered By: Lex Carroll on 56-72-7725Lfcm nitrogen [Mass/Vol]9 mg/dL7-[facility] HospitalWBC Auto (Bld) [#/Vol]Ordered By: eLx Carroll on 42-10-1387HXT (Bld) [#/Vol]4.2 10*3/uL4.1-10.5FThe [facility] Hospital Vital Signs Date TimeVital SignValuePerforming NurfochfsMuayxtzl54-88-6113 17:30-0400 Diastolic blood fzpqxido83 mm[Hg]Jane Correia MD Work Phone: [facility]07-30-2025 17:30-0400Heart rate74 /min Jane Correia MD Work Phone: [facility]07-30-2025 17:30-0400Respiratory rate 18 /minJane Correia MD Work Phone: [facility]07-30-2025 17:30-0053UqA5% (BldA) [Mass fraction]93 %Jane Correia MD Work Phone: [facility]07-30-2025 17:30-0400Systolic blood eyrtgwmp597 mm[Hg]Jane Correia MD Work Phone: [facility]07-30-2025 15:30-0400Body temperature 97.2 [degF]Jane Correia MD Work Phone: [facility]07-30-2025 14:26-0400Body tjuacu333.3 cmJane Correia MD Work Phone: [facility]07-30-2025 14:26-0400Body mass index (BMI) [Ratio]22.15 kg/o1XrwjdktmaeoJane Correia MD Work Phone: [facility]07-30-2025 14:26-0400Body tvaxzv96.04 kgJane Correia MD Work Phone: [facility]05-05-2025 11:11-0400Body ybjqin616.3 cmArashen Hemmer PA Work Phone: [facility] SpringsImxxwucbwn80-32-4905 11:11-0400Body mass index (BMI) [Ratio]28.5 kg/d6Apubt Hemmer PA Work Phone: [phone] [place], [place] [address]Wugknyjyjv74-64-3698 11:11-0400Body rbksreophmy45 [degF]Xuan Hemmer PA Work Phone: [phone] SpringsLbheakdfkz87-02-5007 11:11-0400Body .54 kgKaren Hemmer PA Work Phone: [phone] SpringsIrcjiquspa30-54-4573 11:11-0400Diastolic blood kohxafrq73 mm[Hg]Xuan Hemmer PA Work Phone: [phone] SpringsXixnbwxbvw43-83-4991 11:11-0400Heart rate82 /min Xuan Hemmer PA Work Phone: [facility] SpringsQxpeuygmnt21-66-2700 11:11-0400Respiratory rate16 /minKaren Hemmer PA Work Phone: [phone] SpringsOzaycfhhau75-24-3605 11:11-5971OqS0% (BldA) [Mass fraction]98 %Xuan Hemmer PA Work Phone: [facility] SpringsRoszvmzgwe43-61-0183 11:11-0400Systolic blood eqakqrqm917 mm[Hg]Xuan MALDONADO Work Phone: [facility] SpringsUypdvetunu88-39-1405 12:47-0400Diastolic blood xltyoyvu07 mm[Hg]Sanjay Robledo II Work Phone: [facility]04-15-2025 12:47-0400 Heart rate90 /Gracy Robledo II Work Phone: 1(862)111-[address] [place], [place] [address]104-15-2025 12:47-0400 Respiratory rate20 /Gracy Robledo II Work Phone: 1([phone])182-[address] [place], [place] [address]-15-2025 12:47-0400 SaO2% (BldA) [Mass fraction]97 %Sanjay Robledo II Work Phone: 1(071)122-[address] [place], [place] [address]104-15-2025 12:47-0400 Systolic blood shynecsq763 mm[Hg]Sanjay Robledo II Work Phone: 1([phone] [place], [place] 95[address]104-15-2025 10:24-0400 Body ihjwoq790.26 cmDajackie Robledo II Work Phone: 1([phone])568-[address] [place], [place] [address]104-15-2025 10:24-0400 Body .64 kgDajackie Robledo II Work Phone: [phone] [place], [place] [address]-10-2025 13:38-0400 Body mass index (BMI) [Ratio]26.89 kg/u5LmjujDerrick Harris MD Work Phone: [phone]04-10-2025 13:38-0400Body temperature 98.4 [degF]Derrick Harris MD Work Phone: [phone]04-10-2025 13:38-0400Body zybddt16.6 kgDerrick Harris MD Work Phone: [phone]04-10-2025 13:38-0400Diastolic blood wgersapc37 mm[Hg]Derrick Harris MD Work Phone: [phone] HospitalComment on above:Copied from previous xzyu19-62-9635 13:38-0400Heart rate53 /minDerrick Harris MD Work Phone: [phone]04-10-2025 13:38-0400Respiratory rate 18 /minDerrick Harris MD Work Phone: [facility]04-10-2025 13:38-8921NtQ9% (BldA) [Mass fraction]98 %Derrick Harris MD Work Phone: [phone]04-10-2025 13:38-0400Systolic blood ronxcwpu249 mm[Hg]Derrick Harris MD Work Phone: [phone] HospitalComment on above:Copied from previous ngnp97-30-3938 11:40-0400Body .3 cmSjigar Garg MD Work Phone: [facility]04-10-2025 11:40-0400Body mass index (BMI) [Ratio]26.88 kg/u1DfnpypDmitri Garg MD Work Phone: [phone]04-10-2025 11:40-0400Body temperature 98.4 [degF]Dmitri Garg MD Work Phone: [phone]04-10-2025 11:40-0400Body .56 kgDmitri Garg MD Work Phone: [phone]04-10-2025 11:40-0400Diastolic blood dzcmailp22 mm[Hg]Dmitri Garg MD Work Phone: [facility]04-10-2025 11:40-0400Heart rate53 /min Dmitri Garg MD Work Phone: [facility]04-10-2025 11:40-1435BwD1% (BldA) [Mass fraction]98 %Dmitri Garg MD Work Phone: [facility]04-10-2025 11:40-0400Systolic blood dxzcnjan883 mm[Hg]Dmitri Garg MD Work Phone: [facility]03-21-2025 10:44-0400Body mass index (BMI) [Ratio]24.55 kg/u5IdrarxMorales Gregg MD Work Phone: [facility]03-21-2025 10:44-0400Body .4 kgMorales Gregg MD Work Phone: [facility]03-21-2025 10:40-0400Heart rate53 /min Morales Gregg MD Work Phone: [facility]03-21-2025 10:40-1806DnZ2% (BldA) [Mass fraction]95 %Morales Gregg MD Work Phone: [facility]03-21-2025 10:30-0400Diastolic blood iffddqgh26 mm[Hg]Morales Gregg MD Work Phone: [facility]03-21-2025 10:30-0400Systolic blood uhhffjxw58 mm[Hg]Morales Gregg MD Work Phone: [facility]03-21-2025 08:51-0400Body temperature 97.7 [degF]Morales Gregg MD Work Phone: [facility]03-21-2025 08:51-0400Respiratory rate 16 /minJojosh Gregg MD Work Phone: [facility]03-05-2025 14:34-0500Diastolic blood oioaxfyz77 mm[Hg]Sanjay Robledo II Work Phone: [facility]03-05-2025 14:34-0500 Heart rate48 /minDgreg Robledo II Work Phone: [facility]03-05-2025 14:34-0500 Respiratory rate18 /minDgreg Robledo II Work Phone: [facility]03-05-2025 14:34-0500 SaO2% (BldA) [Mass fraction]94 %Sanjay Robledo II Work Phone: [facility]03-05-2025 14:34-0500 Systolic blood inkpxbfk63 mm[Hg]Sanjay Robledo II Work Phone: [facility]03-05-2025 12:13-0500 Body idtatl547.26 cmDajackie Robledo II Work Phone: [facility]03-05-2025 12:13-0500 Body rlhufc87.37 kgDajackie Robledo II Work Phone: [facility]02-14-2025 10:00-0500 Body mass index (BMI) [Ratio]24.35 kg/w6Tqxyzsujpf [address]02-14-2025 10:00-0500Body zryevu90.8 kgTrumbull Regional Medical Centerlogy [address]02-14-2025 10:00-0500 Diastolic blood rulpiyap39 mm[Hg]Hepatology [address]02-14-2025 10:00-0500Heart rate51 /minTrumbull Regional Medical Centerlogy [address]02-14-2025 10:00-0500 SaO2% (BldA) [Mass fraction]99 %Hepatology [address]02-14-2025 10:00-0500Systolic blood awkmyouv39 mm[Hg]Hepatology [address] 05-31-2024 08:43-0500Body .3 cmSsm [facility] [address]02-14-2025 08:43-0500Body ommjmlyxith48.5 [degF]Hepatology [address]02-14-2025 08:43-0500Respiratory rate16 /minHewatology [address]02-13-2025 16:04-0500Diastolic blood gfxljvia97 mm[Hg]Raymond Penaloza MD Work Phone: [facility]02-13-2025 16:04-0500Heart rate52 /min Raymond Penaloza MD Work Phone: [facility]02-13-2025 16:04-0500Respiratory rate 16 /minRaymond Penaloza MD Work Phone: [facility]02-13-2025 16:04-8101YzZ6% (BldA) [Mass fraction]96 %Raymond Penaloza MD Work Phone: [facility]02-13-2025 16:04-0500Systolic blood mrmafeta05 mm[Hg]Raymond Penaloza MD Work Phone: [facility]02-13-2025 15:14-0500Body temperature 96.8 [degF]Raymond Penaloza MD Work Phone: [facility]02-06-2025 11:01-0500Body mass index (BMI) [Ratio]24.93 kg/q1LnyloygplBrisa Bull MD Work Phone: [facility]02-06-2025 11:01-0500Body temperature 97.11 [degF]Brisa Bull MD Work Phone: [facility]02-06-2025 11:01-0500Body jifcbm49.7 kgBrisa Bull MD Work Phone: [phone]02-06-2025 11:01-0500Diastolic blood fmdorjcc66 mm[Hg]Brisa Bull MD Work Phone: [phone]02-06-2025 11:01-0500Heart rate60 /min Brisa Bull MD Work Phone: [facility]02-06-2025 11:01-0500Respiratory rate 16 /minBrisa Bull MD Work Phone: [phone]02-06-2025 11:01-7377UuW3% (BldA) [Mass fraction]100 %Brisa Bull MD Work Phone: [phone]02-06-2025 11:01-0500Systolic blood dswiziti839 mm[Hg]Brisa Bull MD Work Phone: [phone]02-06-2025 10:41-0500Body mass index (BMI) [Ratio]24.93 kg/m2Pulm 8CMercy Health West HospitalRvpzfu83-89-0477 10:41-0500Body weight 77.7 kgPulm 8CMercy Health West HospitalHeopmb84-62-2360 14:46-0500Diastolic blood lithxgvx01 mm[Hg]Brisa Seals MD Work Phone: [phone] Health West HospitalSwpxag70-55-9786 14:46-0500Heart rate60 /min Brisa Seals MD Work Phone: [phone] Health West HospitalWknvze07-53-3739 14:46-0500Respiratory rate 17 /minBrisa Seals MD Work Phone: ZMercy Health West HospitalGunmjg20-46-2054 14:46-8939RyS4% (BldA) [Mass fraction]97 %Brisa Seals MD Work Phone: [phone] Health West HospitalNoebkh84-82-4350 14:46-0500Systolic blood whodljlx356 mm[Hg]Brisa Seals MD Work Phone: [phone] Health West HospitalSaaodz48-76-0991 12:29-0500Diastolic blood mm[Hg]Jade Arora MD Work Phone: [place] [address]-16-2025 12:29-0500Systolic blood efaophsh488 mm[Hg]Jade Arora MD Work Phone: [phone] [address]-16-2025 12:28-0500Body .5 cmJade Arora MD Work Phone: [phone] [address]-16-2025 12:28-0500Body mass index (BMI) [Ratio]25.62 kg/w0SjfdlgJade Arora MD Work Phone: [place] [address]-16-2025 12:28-0500Body ygpoyc70.83 kgJade Arora MD Work Phone: [phone] [address]-16-2025 12:28-0500Heart rate52 /min Jade Arora MD Work Phone: [place] [address]-16-2025 12:28-8619DlU5% (BldA) [Mass fraction]97 %Jade Arora MD Work Phone: [facility]01-15-2025 12:00-0500Diastolic blood nywyaqmh70 mm[Hg]Hepatology [address]01-15-2025 12:00-0500Heart rate50 /minHepatology [address]01-15-2025 12:00-0500Respiratory rate18 /min Hepatology [address]01-15-2025 12:00-4050IsF8% (BldA) [Mass fraction] 100 %Hepatology [address]01-15-2025 12:00-0500Systolic blood pressure 119 mm[Hg]Hepatology [address]01-15-2025 11:50-0500Body mass index (BMI) [Ratio]24.81 kg/o5Kljschvcji [address]01-15-2025 11:50-0500Body dqsufo86.2 kgHehospital of the university of pennsylvaniay [address] StreetComment on above:post para weight 05-01-2024 10:22-0500Body suxoaj451.[address]Hep[address]01-15-2025 10:22-0500Body pzrdjajrqqj58.3 [degF]Hepatology [address]01-15-2025 07:50-0500Body bezfsm818.5 [facility]An[facility] Work Phone: [phone]01-15-2025 07:50-0500Body mass index (BMI) [Ratio]26.06 kg/x9Cycbytgzsf Clinic Work Phone: [phone]01-15-2025 07:50-0500Body temperature 97.59 [degF][facility] Work Phone: [phone]01-15-2025 07:50-0500Body tppsiv89.19 kgAnesthesia Clinic Work Phone: [phone]01-15-2025 07:50-0500Diastolic blood pfmuspft15 mm[Hg][facility] Work Phone: [phone]01-15-2025 07:50-0500Heart rate56 /min [facility] Work Phone: [facility]01-15-2025 07:50-0500Respiratory rate 16 /minAnesthesia Clinic Work Phone: [phone]01-15-2025 07:50-1386KjT7% (BldA) [Mass fraction]97 %[facility] Work Phone: [phone]01-15-2025 07:50-0500Systolic blood enrfdsgf344 mm[Hg][facility] Work Phone: [phone]01-14-2025 12:49-0500Body rauwsm045.5 Jhonny Weir MD Work Phone: [phone]01-14-2025 12:49-0500Body mass index (BMI) [Ratio]26.06 kg/x6FnaxsHal Weir MD Work Phone: [phone]01-14-2025 12:49-0500Body temperature 97.2 [degF]Hal Weir MD Work Phone: [phone]01-14-2025 12:49-0500Body zniumu82.19 kgHal Weir MD Work Phone: [phone]01-14-2025 12:49-0500Diastolic blood aebrsujt16 mm[Hg]Hal Weir MD Work Phone: [phone]01-14-2025 12:49-0500Heart rate53 /min Hal Weir MD Work Phone: [phone]01-14-2025 12:49-0500Respiratory rate 12 /minHal Weir MD Work Phone: [phone]01-14-2025 12:49-7111GkD0% (BldA) [Mass fraction]98 %Hal Weir MD Work Phone: [phone]01-14-2025 12:49-0500Systolic blood hqzlzbca018 mm[Hg]Hal Weir MD Work Phone: [phone]01-13-2025 14:41-0500Body .5 Kyle Garg MD Work Phone: [facility]01-13-2025 14:41-0500Body mass index (BMI) [Ratio]26.06 kg/l1ImmoioDmitri Garg MD Work Phone: [phone]01-13-2025 14:41-0500Body temperature 96.8 [degF]Dmitri Garg MD Work Phone: [phone]01-13-2025 14:41-0500Body .19 kgDmitri Garg MD Work Phone: [phone]01-13-2025 14:41-0500Diastolic blood jjtdmyzu18 mm[Hg]Dmitri Garg MD Work Phone: [phone]01-13-2025 14:41-0500Heart rate50 /min Dmitri Garg MD Work Phone: [phone]01-13-2025 14:41-0500Respiratory rate 12 /minSjigar Garg MD Work Phone: [phone]01-13-2025 14:41-9432YaK4% (BldA) [Mass fraction]96 %Dmitri Garg MD Work Phone: [facility]01-13-2025 14:41-0500Systolic blood yccxmfck707 mm[Hg]Dmitri Garg MD Work Phone: [phone]01-13-2025 10:58-0500Body eznxkc672.[address] Work Phone: [facility]01-13-2025 10:58-0500Body mass index (BMI) [Ratio]26.1 kg/b8Omaxisf Crtalic-Sandy RD Work Phone: [facility]01-13-2025 10:58-0500Body ticfkk92.[address]-Sandy RD Work Phone: [facility]08-28-2024 13:44-0400Body ucpzad193.3 cmArashen Hemmer PA Work Phone: 1([phone])[facility] [place], [place] [address]Ibyomusalb51-89-8487 13:44-0400Body mass index (BMI) [Ratio]27.67 kg/v4Kbpht Hemmer PA Work Phone: 1(703)[address] [place], [place] 558[address]08-28-2024 13:44-0400Body kg Xuan Hemmer PA Work Phone: 1([phone])[address] [place], [place] 558[address]08-28-2024 13:44-0400Diastolic blood ykikehdu65 mm[Hg]Xuan Hemmer PA Work Phone: 1(268)[address] [place], [place] 558[address]08-28-2024 13:44-0400Heart rate84 /min Xuan Hemmer PA Work Phone: 1(660)[address] [place], [place] 558[address]08-28-2024 13:44-0400Respiratory rate18 /minArashen Hemmer PA Work Phone: 1(761)[address] [place], [place] 558[address]08-28-2024 13:44-0173TmE9% (BldA) [Mass fraction]97 %Xuan Hemmer PA Work Phone: 1(851)[address] [place], [place] 558[address]08-28-2024 13:44-0400Systolic blood mm[Hg]Xuan Hemmer PA Work Phone: 1(700)[address] [place], [place] 558[address]03-20-2024 08:58-0400Body .85 kgII Sanjay Robledo Work Phone: [phone]03-20-2024 08:58-0400 Diastolic blood kfmlupyo40 mm[Hg]II Sanjay Robledo Work Phone: [phone]03-20-2024 08:58-0400 Heart rate88 /minII Sanjay Robledo Work Phone: 1(027)[address] [place], [place] 223[address]03-20-2024 08:58-0400 Systolic blood nfzzzvhe457 mm[Hg]II Sanjay Robledo Work Phone: [phone]02-27-2024 17:15-0500 Diastolic blood shjfnzre42 mm[Hg]II Sanjay Robledo Work Phone: 1(540)185-[address] [place], [place] 9581102-27-2024 17:15-0500 Heart rate72 /minII Sanjay Robledo Work Phone: 1(397)635-[address] [place], [place] 9581102-27-2024 17:15-0500 Respiratory rate20 /minII Sanjay Robledo Work Phone: 1([phone])399-[address] [place], [place] 9581102-27-2024 17:15-0500 SaO2% (BldA) [Mass fraction]94 %II Sanjay Robledo Work Phone: 1(697)055-[address] [place], [place] 9581102-27-2024 17:15-0500 Systolic blood qybpwjhv031 mm[Hg]II Sanjay Robledo Work Phone: [phone]02-27-2024 13:38-0500 Body .26 cmII Sanjay Robledo Work Phone: 1(535)587-[address] [place], [place] 9581102-27-2024 13:38-0500 Body mass index (BMI) [Ratio]31.1 kg/m2II Sanjay Robledo Work Phone: 1(679)070-[address] [place], [place] 9581102-27-2024 13:38-0500 Body xxosge98.7 kgII Sanjay Robledo Work Phone: [phone]02-27-2024 12:05-0500 Body inqtqkufhqy57.2 [degF]II Sanjay Robledo Work Phone: 1(399)276-[address] [place], [place] [address]81102-14-2024 15:07-0500 Body .3 cmFredric Itzkowitz DO Work Phone: [facility] SpringsTrcahbfdes53-47-5694 15:07-0500Body mass index (BMI) [Ratio]32.05 kg/l8Wnhegry Itzkowitz DO Work Phone: [facility] SpringsHigrnbqmpv78-67-2412 15:07-0500Body ucwwpk60.43 kgFredric Itzkowitz DO Work Phone: [facility] SpringsLxdjvdyezx72-51-6400 15:07-0500Diastolic blood xrfnebix82 mm[Hg]Brayan Itzkowitz DO Work Phone: [facility] SpringsWxdunzsauo21-60-1647 15:07-0500Systolic blood jnslymle768 mm[Hg]Brayan Itzkowitz DO Work Phone: [facility] SpringsTcdbrpgcnb71-17-1519 06:44-0500Body yhryol464.26 cmII Sanjay Robledo Work Phone: [facility]02-06-2024 06:44-0500 Body .79 kgII Sanjay Robledo Work Phone: [facility]02-01-2024 14:04-0500 Body .3 cmFredric Itzkowitz DO Work Phone: [facility] SpringsNhblzertxn79-53-0692 14:04-0500Body mass index (BMI) [Ratio]32.78 kg/g3Zrlicse Itzkowitz DO Work Phone: 1(645)[facility] [place], [place] [address]Ecodqaiewm93-18-3924 14:04-0500Body .7 kgFredric Itzkowitz DO Work Phone: 0(103)[facility]-2768[facility] SpringsAfobhfvmqz65-80-6055 14:04-0500Diastolic blood mm[Hg]Brayan Itzkowitz DO Work Phone: [facility] SpringsSnzpzrrlsf27-51-6349 14:04-0500Systolic blood dpjuzcop644 mm[Hg]Brayan Itzkowitz DO Work Phone: 1(336)[address] [place], [place] 8044612-27-2023 11:00-0500Body rxcddi108.26 cmRyan Scovanner Other [facility]12-27-2023 11:00-0500 Body mass index (BMI) [Ratio]33.22 kg/m2Ryan Scovanner Other [employer] Other 12-27-2023 11:00-0500Body pzqint099.06 kgRyan Scovanner Other [employer] Other 12-27-2023 11:00-0500Body iwbjgb415.05 kgII Sanjay Robledo Work Phone: [facility]12-27-2023 11:00-0500 Diastolic blood rsearfqk79 mm[Hg]Rick Scovanner Other [facility]12-27-2023 11:00-0500 Systolic blood jwtopmet274 mm[Hg]Rick Scovanthuy Other [facility]07-27-2023 11:00-0400 Body .79 kgRyyoli Scovanner Other [employer] Other 07-27-2023 11:00-0400Diastolic blood twbdyjcb71 mm[Hg] Rick Scnaya Other [employer] Other 07-27-2023 11:00-0400Systolic blood ftylttxd984 mm[Hg] Rick Scnaya Other [employer] Other 06-07-2023 08:49-0400Diastolic blood vhpsjoky05 mm[Hg] II Sanjay Robledo Work Phone: [facility]06-07-2023 08:49-0400 Heart rate50 /minII Sanjay Robledo Work Phone: [facility]06-07-2023 08:49-0400 SaO2% (BldA) [Mass fraction]99 %II Sanjay Robledo Work Phone: [facility]06-07-2023 08:49-0400 Systolic blood bivixgbn802 mm[Hg]II Sanjay Robledo Work Phone: [facility]06-07-2023 07:36-0400 Body ftduco305.26 cmII Sanjay Robledo Work Phone: [facility]06-07-2023 07:36-0400 Body uvrjpdpksax15.5 [degF]II Sanjay Robledo Work Phone: [facility]06-07-2023 07:36-0400 Body tfaptl20.25 kgII Sanjay Robledo Work Phone: [facility]06-07-2023 07:36-0400 Respiratory rate16 /minII Sanjay Robledo Work Phone: [facility] Encounters Encounter DateEncounter TypeCare ProviderFacilityStart: 02-18-2025 End: 22-76-8622qkpdmbzeeuRUQRUA B BERRY IIFacility:[facility] Start: 02-10-2025 End: 00-85-7671tzkryvqdfvHOYHAR Patricia ROBLEDO IIFacility:[facility] Start: 01-28-2025 End: 25-50-6113dyzggixrjtCMRZVK Patricia ROBLEDO IIFacility:[facility] Start: 25-22-0432mjqzohgjrzXONELZ B VENKAT [facility] End: 80-29-1606Agkershob Result EncounterGeneric External Data ProviderNOMS External Department UnsolicitedStart: 01-24-2025 End: 14-04-1603Ccnkfglic Result EncounterGeneric External Data ProviderNOMS External Department UnsolicitedStart: 01-20-2025 End: 31-79-2175Wtpxmfqmn Result EncounterGeneric External Data ProviderNOMS External Department UnsolicitedStart: 01-20-2025 End: 23-26-8555Icrrktaec Result EncounterGeneric External Data ProviderNOMS External Department UnsolicitedStart: 01-16-2025 End: 68-17-6074Mdspdtyha Result EncounterGeneric External Data ProviderNOMS External Department UnsolicitedStart: 01-16-2025 End: 64-86-5880Dqzdcdojs Result EncounterGeneric External Data ProviderNOMS External Department UnsolicitedStart: 01-15-2025 End: 47-61-2025Qihgbczrj Result EncounterGeneric External Data ProviderNOMS External Department UnsolicitedStart: 01-15-2025 End: 17-51-3403Kswmdqgei Result EncounterGeneric External Data ProviderNOMS External Department UnsolicitedStart: 01-14-2025 End: 10-01-9995xgpurnyypyQQSGV GHAFFARIFacility:[facility]art: 01-08[facility]2025 End: 90-51-5958Qzvijbmcl Result EncounterGeneric External Data ProviderNOMS External Department UnsolicitedStart: 01-08-2025 End: 67-17-9577Jmkfuftuj Result EncounterGeneric External Data ProviderNOMS External Department UnsolicitedStart: 01-06-2025 End: 18-09-9097Knidhrzwd Result EncounterGeneric External Data ProviderNOMS External Department UnsolicitedStart: 01-06-2025 End: 20-20-9971Dwjwaydqg Result EncounterGeneric External Data ProviderNOMS External Department UnsolicitedStart: 01-02-2025 End: 26-67-4659Xwejnnokv Result EncounterGeneric External Data ProviderNOMS External Department UnsolicitedStart: 01-02-2025 End: 46-84-4893Dyapgxhcp Result EncounterGeneric External Data ProviderNOMS External Department UnsolicitedStart: 12-25-2024 End: 62-17-0790Zidetydxh Result EncounterGeneric External Data ProviderNOMS External Department UnsolicitedStart: 12-25-2024 End: 45-88-9343Fxswhexel Result EncounterGeneric External Data ProviderNOMS External Department UnsolicitedStart: 12-23-2024 End: 64-68-8813Evgifqsso Result EncounterGeneric External Data ProviderNOMS External Department UnsolicitedStart: 12-23-2024 End: 55-18-4731Wiywikyxu Result EncounterGeneric External Data ProviderNOMS External Department UnsolicitedStart: 12-20-2024 End: 31-50-1194Cieuqwprc Result EncounterGeneric External Data ProviderNOMS External Department UnsolicitedStart: 12-20-2024 End: 17-85-5856Mvmdwhlhm Result EncounterGeneric External Data ProviderNOMS External Department UnsolicitedStart: 12-19-2024 End: 22-95-0470Zmsvcmfco Result EncounterGeneric External Data ProviderNOMS External Department UnsolicitedStart: 12-19-2024 End: 33-41-6066Vaiqshegg Result EncounterGeneric External Data ProviderNOMS External Department UnsolicitedStart: 12-17-2024 End: 80-58-4422Uhmnqtdoa Result EncounterGeneric External Data ProviderNOMS External Department UnsolicitedStart: 12-17-2024 End: 55-80-9926Zmjizzirp Result EncounterGeneric External Data ProviderNOMS External Department UnsolicitedStart: 12-16-2024 End: 64-47-0077Jjvarqujq Result EncounterGeneric External Data ProviderNOMS External Department UnsolicitedStart: 12-16-2024 End: 55-13-5794Ohzyattaf Result EncounterGeneric External Data ProviderNOMS External Department UnsolicitedStart: 12-14-2024 End: 24-26-1169Tcmizlqgd Result EncounterGeneric External Data ProviderNOMS External Department UnsolicitedStart: 12-14-2024 End: 74-67-1213Ibekkxdih Result EncounterGeneric External Data ProviderNOMS External Department UnsolicitedStart: 12-11-2024 End: 83-22-6892Vbrgnrmke Result EncounterGeneric External Data ProviderNOMS External Department UnsolicitedStart: 12-11-2024 End: 43-68-1730Hxodgsxeb Result EncounterGeneric External Data ProviderNOMS External Department UnsolicitedStart: 12-10-2024 End: 49-42-4392Hgqclzovf Result EncounterGeneric External Data ProviderNOMS External Department UnsolicitedStart: 12-10-2024 End: 35-55-0368Blewbnmel Result EncounterGeneric External Data ProviderNOMS External Department UnsolicitedStart: 12-05-2024 End: 95-60-5112Mkjbqdaba Result EncounterGeneric External Data ProviderNOMS External Department UnsolicitedStart: 12-05-2024 End: 32-49-6020Axyvcyofp Result EncounterGeneric External Data ProviderNOMS External Department UnsolicitedStart: 11-25-2024 End: 92-67-1042Yxjlxotvz Result EncounterGeneric External Data ProviderNOMS External Department UnsolicitedStart: 11-25-2024 End: 99-34-2110Hrfawqpqb Result EncounterGeneric External Data ProviderNOMS External Department UnsolicitedStart: 11-22-2024 End: 49-84-6620Huzulldjx Result EncounterGeneric External Data ProviderNOMS External Department UnsolicitedStart: 11-22-2024 End: 15-71-4058Rurajfvrd Result EncounterGeneric External Data ProviderNOMS External Department UnsolicitedStart: 11-22-2024 End: 43-41-9513Wnltntpzyw and management of inpatientDANIEL B ROBLEDO II [facility] 11-21-2024 End: 90-35-1943Plbvnsvir Result EncounterGeneric External Data ProviderNOMS External Department UnsolicitedStart: 11-21-2024 End: 34-62-5916Hdaxljrsy Result EncounterGeneric External Data ProviderNOMS External Department UnsolicitedStart: 11-19-2024 End: 97-64-9932twpwsmlamoHgwhcbt D KatkoFirE[facility] Work Phone: Start: 11-19-2024 End: 69-88-3169Xsxmpsvs ReferredAlbin Mitchell DO-LAB [facility] Start: 11-19-2024 End: 50-12-4649Fyhipuamp Result EncounterGeneric External Data ProviderNOMS External Department UnsolicitedStart: 11-19-2024 End: 05-29-0118Wrkcllgom Result EncounterGeneric External Data ProviderNOMS External Department UnsolicitedStart: 11-19-2024 End: 98-09-4008Sffefgoxk encounterLiver Txp Coordinator Work Phone: Transplant CenterComment on above:Update ([facility] admit) Start: 11-18-2024 End: 98-25-8357Bpvigbyke encounterLiver Txp Coordinator Work Phone: Transplant CenterComment on above:Return Call Request f/u dc phone callStart: 11-15-2024 End: 70-48-3649tmradcnqhuKpazzyh Singam MD Work Phone: Infectious DiseaseComment on above:CoPat StopStart: 11-15-2024 End: 44-54-1387Pqcdmxmja Result EncounterGeneric External Data ProviderNOMS External Department UnsolicitedStart: 11-15-2024 End: 45-51-9572Yaabkgpfg Result EncounterGeneric External Data ProviderNOMS External Department UnsolicitedStart: 11-14-2024 End: 88-36-8291Remwxj outpatient visit 25 minutesJennie Nicholson MD Work Phone: Infectious DiseaseComment on above:VRE infection (vancomycin resistant Enterococcus) (Primary Dx)Start: 11-14-2024 End: 36-30-0015aobyqzeanbNOTZGY B BERRY IIFacility:[facility] Start: 11-14-2024 End: 87-66-3229Nkuhlgbdh Result EncounterGeneric External Data ProviderNOMS External Department UnsolicitedStart: 11-14-2024 End: 49-25-3843Apzekyjna Result EncounterGeneric External Data ProviderNOMS External Department UnsolicitedStart: 11-13-2024 End: 37-28-9851Nihdgrafj Result EncounterGeneric External Data ProviderNOMS External Department UnsolicitedStart: 11-13-2024 End: 72-60-1580Zhtsnqifw Result EncounterGeneric External Data ProviderNOMS External Department UnsolicitedStart: 11-13-2024 End: 67-14-0650Arhupi OnlyJane Correia MD Work Phone: GastroenterologyComment on above: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, 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] Start: 11-12-2024 End: 49-47-1844UdunhbFgpo L Nikolic RNTransplant CenterStart: 11-11-2024 End: 15-97-7367Mxkkxmtac Result EncounterGeneric External Data ProviderNOMS External Department UnsolicitedStart: 11-11-2024 End: 82-05-8597Tssclnwti Result EncounterGeneric External Data ProviderNOMS External Department UnsolicitedStart: 11-11-2024 End: 67-19-2317Kwtlqynjv Araceli Fatima RNGastroenterologyComment on above:Steward/Stewardess Room - OtherStart: 11-08-2024 End: 25-25-2590Lkemzhvjm Result EncounterGeneric External Data ProviderNOMS External Department UnsolicitedStart: 11-08-2024 End: 93-82-3245Ibeacszmz Result EncounterGeneric External Data ProviderNOMS External Department UnsolicitedStart: 11-07-2024 End: 40-11-3970phahkqyuzcQxvbu Yun Kim RPhInfectious DiseaseComment on above: CoPat Management (Lab review)Start: 11-07-2024 End: 71-18-2925Vrpmswphe Result EncounterGeneric External Data ProviderNOMS External Department UnsolicitedStart: 11-07-2024 End: 56-99-9165Hbqmyfyce Result EncounterGeneric External Data ProviderNOMS External Department UnsolicitedStart: 11-06-2024 End: 94-65-5639ngksolttbgVfnd L Nikolic RNTransplant CenterStart: 11-06-2024 End: 38-33-2182Zqnhtkz encounter procedureCarina Ziegler RNTransplant Center Comment on above:Appt 7-30Start: 11-05-2024 End: 04-41-5808Hvifkz OnlyCarina Ziegler RNTransplant CenterStart: 11-04-2024 End: 83-17-8511Ozfrsvnys Result EncounterGeneric External Data ProviderNOMS External Department UnsolicitedStart: 11-04-2024 End: 37-78-0466Gekeilwad Result EncounterGeneric External Data ProviderNOMS External Department UnsolicitedStart: 11-02-2024 End: 85-57-7732Pqrhkllyo Result EncounterGeneric External Data ProviderNOMS External Department UnsolicitedStart: 11-02-2024 End: 14-24-6477Ciffjyqjt Result EncounterGeneric External Data ProviderNOMS External Department UnsolicitedStart: 11-01-2024 End: 34-19-7192Yxmidjlwz Result EncounterGeneric External Data ProviderNOMS External Department UnsolicitedStart: 11-01-2024 End: 95-47-2390Naydcjkiw Result EncounterGeneric External Data ProviderNOMS External Department UnsolicitedStart: 10-31-2024 End: 16-15-3902resljiekwkSdpgr Yun Kim RPhInfectious DiseaseStart: 10-31-2024 End: 30-56-4983Njvbxzyeh Result EncounterGeneric External Data ProviderNOMS External Department UnsolicitedStart: 10-31-2024 End: 11-53-7481Lpswohkmv Result EncounterGeneric External Data ProviderNOMS External Department UnsolicitedStart: 10-31-2024 End: 46-56-8640Bqssed-up encounterTrakymberly Dhillon RNTransplant CenterStart: 10-31-2024 End: 86-70-4722Gmtgjog encounter procedureChkatharine Maldonado RPhInfectious Disease Comment on above: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; CoPat AgencyStart: 10-30-2024 End: 28-23-6973tfujkhglcgEGQJT GHAFFARIFacility:[facility]art: 10-30-2024 End: 40-99-4242Tkfulgaxvv hospital visit by Naila Cruz DO Work Phone: [facility]Start: 10-30-2024 End: 59-50-7644Dfcwglvtz Result EncounterGeneric External Data ProviderNOMS External Department UnsolicitedStart: 10-30-2024 End: 19-41-4677Ktatgywgy Result EncounterGeneric External Data ProviderNOMS External Department UnsolicitedStart: 10-23-2024 End: 14-68-7633uqgbcnifwjFmuulhg Singam MD Work Phone: [facility] HOSPComment on above:CoPat StartStart: 10-17-2024 End: 56-57-5327Fafclitle Result EncounterGeneric External Data ProviderNOMS External Department UnsolicitedStart: 10-17-2024 End: 32-37-4219Gzgiloruc Result EncounterGeneric External Data ProviderNOMS External Department UnsolicitedStart: 10-14-2024 End: 27-71-2776Sjkbwvqxs Result EncounterGeneric External Data ProviderNOMS External Department UnsolicitedStart: 10-14-2024 End: 21-18-3074Mlyvyptfj Result EncounterGeneric External Data ProviderNOMS External Department UnsolicitedStart: 10-12-2024 End: 90-52-5676Qofkgkmib Result EncounterGeneric External Data ProviderNOMS External Department UnsolicitedStart: 10-12-2024 End: 94-29-3178Kyksgwbcx Result EncounterGeneric External Data ProviderNOMS External Department UnsolicitedStart: 10-11-2024 End: 81-09-6183Gdfioy-up encounterCarina Ziegler RNTransplant CenterStart: 10-08-2024 End: 36-82-7837Ubnwegxhy Result EncounterGeneric External Data ProviderNOMS External Department UnsolicitedStart: 10-08-2024 End: 66-99-3935Jfrlmeivy Result EncounterGeneric External Data ProviderNOMS External Department UnsolicitedStart: 10-07-2024 End: 99-82-0055Bmmwefiegz and management of inpatientDANIEL B ROBLEDO II [facility]: 10-07-2024 End: 57-48-0569tkqncjamkkJbymodyJanay Ryan APRN.CNP Work Phone: Transplant CenterStart: 10-07-2024 End: 42-56-6378Kutaeyhmi Result EncounterGeneric External Data ProviderNOMS External Department UnsolicitedStart: 10-07-2024 End: 40-52-4888Hdlivgviq Result EncounterGeneric External Data ProviderNOMS External Department UnsolicitedStart: 10-07-2024 End: 61-23-3815Qdcuspxegw [facility] Work Phone: [facility] Radiology CT ScanStart: 10-05-2024 End: 90-67-3715Zsnassmgp Result EncounterGeneric External Data ProviderNOMS External Department UnsolicitedStart: 10-05-2024 End: 24-63-9335Fekudwgmw Result EncounterGeneric External Data ProviderNOMS External Department UnsolicitedStart: 10-04-2024 End: 00-25-2302Vmmudrwlz Result EncounterGeneric External Data ProviderNOMS External Department UnsolicitedStart: 10-04-2024 End: 81-93-1465Zpidboflk Result EncounterGeneric External Data ProviderNOMS External Department UnsolicitedStart: 10-03-2024 End: 38-04-4416Bpukefcdw Result EncounterGeneric External Data ProviderNOMS External Department UnsolicitedStart: 10-03-2024 End: 26-63-8624Wqzbmcmhp Result EncounterGeneric External Data ProviderNOMS External Department UnsolicitedStart: 10-03-2024 End: 10-86-5147Solgnencq encounterLiver Txp Coordinator Work Phone: Transplant CenterComment on above:Return Call Request Start: 10-02-2024 End: 16-10-5297acqsueaoiaWbknj Hyuck David Kwon MD Work Phone: Transplant CenterComment on above:SuturesStart: 10-02-2024 End: 49-95-5339Mcfdzrhrb Result EncounterGeneric External Data ProviderNOMS External Department UnsolicitedStart: 10-02-2024 End: 60-88-0264Fhqzpytbv Result EncounterGeneric External Data ProviderNOMS External Department UnsolicitedStart: 10-01-2024 End: 65-89-3061Jzode Antoine Ryan APRN.CNP Work Phone: Transplant CenterComment on above:Liver Pathology Review; HCC Bluejacket ScoreStart: 10-01-2024 End: 36-57-4385Lhposkrle Result EncounterGeneric External Data ProviderNOMS External Department UnsolicitedStart: 10-01-2024 End: 47-08-9256Oliieftqf Result EncounterGeneric External Data ProviderNOMS External Department UnsolicitedStart: 10-01-2024 End: 50-66-8112Xtdmyk-up encounterCarina Ziegler RNTransplant CenterStart: 09-30-2024 End: 41-67-4923Spoodchik Result EncounterGeneric External Data ProviderNOMS External Department UnsolicitedStart: 09-30-2024 End: 05-02-9930Jeeetucad Result EncounterGeneric External Data ProviderNOMS External Department UnsolicitedStart: 09-29-2024 End: 01-86-1824hzzojiopscTMCZX GHAFFARIFacility:[facility]tart: 09-29-2024 End: 17-52-6412Ttgojguxyn hospital visit by Naila Cruz DO Work Phone: [facility]Start: 09-29-2024 End: 35-26-0324Cupfnakmj Result EncounterGeneric External Data ProviderNOMS External Department UnsolicitedStart: 09-29-2024 End: 39-06-8692Dmkektpls Result EncounterGeneric External Data ProviderNOMS External Department UnsolicitedStart: 09-28-2024 End: 25-84-1714Wkpglyfkg Result EncounterGeneric External Data ProviderNOMS External Department UnsolicitedStart: 09-28-2024 End: 26-25-2857Tbcvlpeam Result EncounterGeneric External Data ProviderNOMS External Department UnsolicitedStart: 09-24-2024 End: 94-53-1114Pumvkkctr Result EncounterGeneric External Data ProviderNOMS External Department UnsolicitedStart: 09-24-2024 End: 03-45-0023Ezqvztpgz Result EncounterGeneric External Data ProviderNOMS External Department UnsolicitedStart: 09-18-2024 End: 76-65-8922Qinnqfrdj encounterCarina Ziegler RNTransplant CenterComment on above:dc ed schedulingStart: 60-28-5647Weqktiv encounter statusCarina Ziegler RN [facility]art: 09-10-2024 End: 74-14-1255Nozwz abstractJabier Vázquez RNTransplant CenterComment on above:Transplant SerologiesStart: 09-09-2024 End: 22-91-4368Julbbnjbc Result EncounterGeneric External Data ProviderNOMS External Department UnsolicitedStart: 09-09-2024 End: 15-68-3381Dnykuyipo Result EncounterGeneric External Data ProviderNOMS External Department UnsolicitedStart: 09-08-2024 End: 50-73-8104Iopizbpna Result EncounterGeneric External Data ProviderNOMS External Department UnsolicitedStart: 09-08-2024 End: 58-72-4636Anhqwbtlv Result EncounterGeneric External Data ProviderNOMS External Department UnsolicitedStart: 09-08-2024 End: 62-36-5194Bmttovqpi encounterVirginia Blevins RRTTransplant CenterStart: 09-06-2024 End: 29-76-3252Oygojokor Result EncounterGeneric External Data ProviderNOMS External Department UnsolicitedStart: 09-06-2024 End: 80-49-0825Zybzbllqz Result EncounterGeneric External Data ProviderNOMS External Department UnsolicitedStart: 09-04-2024 End: 83-90-2199Hnnwsj-up encounterGiana Kingston MD Work Phone: GastroenterologyStart: 09-02-2024 End: 31-76-4393Wkywrjcvc Result EncounterGeneric External Data ProviderNOMS External Department UnsolicitedStart: 09-02-2024 End: 05-02-0425Tvrxhxdny Result EncounterGeneric External Data ProviderNOMS External Department UnsolicitedStart: 09-02-2024 End: 12-54-0374Snrwwjxcq encounterYesica Bright RNTransplant CenterStart: 09-01-2024 End: 81-63-0248Vgbvpcjtr Result EncounterGeneric External Data ProviderNOMS External Department UnsolicitedStart: 09-01-2024 End: 56-28-7024Fhodqhuhs Result EncounterGeneric External Data ProviderNOMS External Department UnsolicitedStart: 08-31-2024 End: 91-44-6443Dwxwuqxfq Result EncounterGeneric External Data ProviderNOMS External Department UnsolicitedStart: 08-31-2024 End: 30-45-0688Pnzpapoil Result EncounterGeneric External Data ProviderNOMS External Department UnsolicitedStart: 88-12-0326Ateqrhr encounter statusYesica Bright RNCleveland ClinicStart: 08-29-2024 End: 69-51-6596Ivxofvvql encounterYesica Bright RNPst. mary's medical centers Main Campus Medical CenterComment on above:OLT selection mtg pt notificationStart: 08-28-2024 End: 44-82-0470Qxjugvcymj and management of inpatientVenus Markie DMD Work Phone: DentistryComment on above:Hepatic encephalopathy (HCC) (Primary Dx); Decompensated cirrhosis (HCC); Pre-operative clearanceStart: 08-28-2024 End: 39-97-4181Rtxnnxhcafgh stateMyyaz Aden DMD Work Phone: [facility]art: 08-27-2024 End: 69-32-9980Gpkjpwcdt Result EncounterGeneric External Data ProviderNOMS External Department UnsolicitedStart: 08-27-2024 End: 14-20-0682Yxwjkiovy Result EncounterGeneric External Data ProviderNOMS External Department UnsolicitedStart: 08-27-2024 End: 81-19-1202Egdeow OnlyLijosselyn Txp Coordinator Work Phone: Transplant CenterComment on above:Laennec's cirrhosis (HCC) (Primary Dx)Informed Consent (91); Patient EducationStart: 08-27-2024 End: 43-48-1637Rcnihegyjl and management of inpatientLisa Chava ATKINS Work Phone: Transplant CenterStart: 08-26-2024 End: 88-64-3742Tnvqoa Jaziel Black PA-C Work Phone: gastroenterologyComment on above:Other ascites (Primary Dx)Start: 08-24-2024 End: 34-18-7328tcxsjrkkrnYolsrb Junna MD Work Phone: GastroenterologyComment on above:[facility] is in [facility] HospStart: 08-23-2024 End: 35-78-4901Ntotpuhdg Result EncounterGeneric External Data ProviderNOMS External Department UnsolicitedStart: 08-23-2024 End: 24-49-1518Fmumnbjeg Result EncounterGeneric External Data ProviderNOMS External Department UnsolicitedStart: 08-23-2024 End: 76-29-2194Fthxvgasmf and management of inpatientWALNICOL CARRERAMOUD [facility]: 08-22-2024 End: 93-97-3175Zzahgroqk Elaine Garg MD Work Phone: GastroenterologyComment on above:Patient Update Abnormal bone scan of thoracic spine (Primary Dx)Start: 08-20-2024 End: 08-15-5130imgtpmqrwjUgjhpbxfq M Jones RNGastroenterologyStart: 08-20-2024 End: 82-99-3755Ziaelh-up encounterSjigar Garg MD Work Phone: Transplant CenterStart: 08-19-2024 End: 18-29-3253Pwtclz flowsMehran Espino PA Work Phone: NOM[facility] CI FMStart: 08-19-2024 End: 56-57-4121Ocnckg flowsMehran sEpino PA Work Phone: NOMS CI FMStart: 08-19-2024 End: 98-63-4029Iaxvvr outpatient visit 15 minutesXuan Espino PA Work Phone: NOMS CI FMComment on above:Other acute postprocedural pain (Primary Dx); Type 2 diabetes mellitus with hyperglycemia, without long-term current use of insulin (CMS/HCC)Start: 08-19-2024 End: 72-63-2654srpixvewbgGJJBX M HEMMERNot AvailableStart: 08-14-2024 End: 19-48-3970Goxcth Irina Garg MD Work Phone: GastroenterologyComment on above:Cirrhosis of liver without ascites, unspecified hepatic cirrhosis type (HCC) (Primary Dx); Liver transplant candidate; Lesion of liver greater than 1 cm in diameter; Alcoholic cirrhosis of liver with ascites (HCC)Colonoscopy Prep the day before procedureColonoscopyStart: 08-12-2024 End: 79-71-9081Fqllmb Irina Garg MD Work Phone: GastroenterologyComment on above:Encounter for screening colonoscopy (Primary Dx)Start: 08-09-2024 End: 06-51-8154oymkkxlmarTrvdpw Junna MD Work Phone: GastroenterologyComment on above:EGDStart: 08-09-2024 End: 69-52-0173F-mail encounter from Latha Garg MD Work Phone: GastroenterologyStart: 08-06-2024 End: 08-39-9602Wpbfckfae Result EncounterGeneric External Data ProviderNOMS External Department UnsolicitedStart: 08-06-2024 End: 52-89-7870Brcypjmqe Result EncounterGeneric External Data ProviderNOMS External Department UnsolicitedStart: 08-06-2024 End: 06-47-3952psivlqthltGXCWDO B BERRY IIFacility:[facility] Start: 08-05-2024 End: 55-61-9659Npaafhttj Result EncounterGeneric External Data ProviderNOMS External Department UnsolicitedStart: 08-05-2024 End: 51-18-3033Nfrmifkwd Result EncounterGeneric External Data ProviderNOMS External Department UnsolicitedStart: 07-31-2024 End: 33-49-2593Oczokinuw Result EncounterGeneric External Data ProviderNOMS External Department UnsolicitedStart: 07-31-2024 End: 61-43-6135Ktlpryyqx Result EncounterGeneric External Data ProviderNOMS External Department UnsolicitedStart: 07-31-2024 End: 94-84-7628Wmruyxqcj encounterSjigar Garg MD Work Phone: GastroenterologyComment on above:ResultsStart: 07-30-2024 End: 68-79-4443Lxmlzvpvm encounterDerrick Harris MD Work Phone: Radiation OncologyComment on above:Steward/Stewardess Room - OtherBiopsy RequestStart: 07-30-2024 End: 35-08-9207Udvwnjfnk to same day surgery laurensSanjay Robledo II Work Phone: [facility] [place] Work Phone: Start: 07-30-2024 End: 11-20-1198aqnfkgpvilNaammh Berry II Work Phone: [facility] Work Phone: Start: 07-25-2024 End: 77-12-4266Msbswrn encounter procedureDerrick Harris MD Work Phone: Radiation OncologyComment on above:Hepatocellular carcinoma (HCC) (Primary Dx)Start: 07-25-2024 End: 88-27-0153gotolqvxlkTKIZJQ B BERRY IIFacility:[facility] Start: 07-25-2024 End: 78-16-7005Bkquku outpatient visit 25 minutesDmitri Garg MD Work Phone: GastroenterologyComment on above:Cirrhosis of liver without ascites, unspecified hepatic cirrhosis type (HCC) (Primary Dx)Start: 07-15-2024 End: 23-39-3045Vfisocqvf encounterSjigar Garg MD Work Phone: GastroenterologyComment on above:Outside Lab Results Start: 07-13-2024 End: 99-85-3847Zfskovdue Result EncounterGeneric External Data ProviderNOMS External Department UnsolicitedStart: 07-13-2024 End: 27-59-8007Wfelbehrl Result EncounterGeneric External Data ProviderNOMS External Department UnsolicitedStart: 07-12-2024 End: 57-27-2425Dwavmv Irina Garg MD Work Phone: GastroenterologyComment on above:Metastatic malignant neoplasm, unspecified site (HCC) (Primary Dx)Start: 07-11-2024 End: 83-78-7227neidwocxujZut ProviderGastroenterologyComment on above:Weekly Lab drawStart: 07-11-2024 End: 41-53-0014E-mail encounter from caregiverCcf ProviderGastroenterologyStart: 07-11-2024 End: 48-41-2622Nvsyqzxec encounterYesica Bright RNTransplant CenterComment on above:OLT selection mtg pt notificationStart: 07-08-2024 End: 83-20-7279I-mail encounter from caregiverCcf ProviderGastroenterologyStart: 07-08-2024 End: 45-28-3225Hulgvrz encounter procedureCcf ProviderGastroenterologyComment on above:Tumor clinic appt with Dr Brewertart: 07-08-2024 End: 82-31-8031Kskxhitiy encounterYesica Bright RNTransplant CenterComment on above:OLT evaluationStart: 07-07-2024 End: 20-24-5108Biiakz Irina Garg MD Work Phone: Transplant CenterComment on above: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) (Primary Dx)Start: 07-05-2024 End: 83-27-8740nipfvjojagETSSKG B BERRY IIFacility:[facility] Start: 07-05-2024 End: 66-25-3977Lettwktbsn hospital visit by Louise [address] [employer] [address] [employer] (I-Stat/1.5t/3t) Work Phone: MRI QComment on above:Pathological fracture, other site, initial encounter for fracture [M84.48XA]Start: 07-05-2024 End: 46-60-9608utewkcmvttIDMTJV B BERRY IIFacility:[facility] Start: 07-05-2024 End: 81-60-2954Qwcrobkqqz hospital visit by Sharon Gregg MD Work Phone: GastroenterologyComment on above:Pleural effusion [J90]Start: 07-02-2024 End: 01-97-4263Crnmgn Irina Garg MD Work Phone: Transplant CenterComment on above:Other ascites (Primary Dx)Start: 07-01-2024 End: 22-19-0931Jtnqccmfy encounterYesica Bright RNTransplant CenterComment on above:Follow UpStart: 06-24-2024 End: 09-36-8046Eqbhufowm encounterSjigar Garg MD Work Phone: GastroenterologyComment on above:Outside Labs Results (chemistry)Start: 06-19-2024 End: 38-87-2855Jwhtztwwp encounterNenita Readus HUCAdmittingComment on above: Appointment; (Thoracentesis)Liver transplant candidate (Primary Dx)Start: 06-19-2024 End: 80-67-0317Rcyzuczge to same day surgery centerDajackie Robledo II Work Phone: [facility]-Ultrasound Main [place] Work Phone: Start: 06-19-2024 End: 06-69-8862eunwpyfkbsIyhxae Berry II Work Phone: [facility] Work Phone: Start: 06-14-2024 End: 95-97-7427Rrgxogmef Result EncounterGeneric External Data ProviderNOMS External Department UnsolicitedStart: 06-14-2024 End: 31-16-8431Tcrplgafe Result EncounterGeneric External Data ProviderNOMS External Department UnsolicitedStart: 06-14-2024 End: 35-85-8040Uwosxvtbi encounterYesica Bright RNTransplant CenterComment on above:Follow UpStart: 06-11-2024 End: 08-55-5686Slvjhj Irina Garg MD Work Phone: Transplant CenterComment on above:Other ascites (Primary Dx)Start: 06-10-2024 End: 76-67-6602Rzxchu Irina Garg MD Work Phone: GastroenterologyComment on above:Pathological fracture, other site, initial encounter for fracture (Primary Dx)2nd Hepatitis B shotStart: 06-08-2024 End: 05-51-3002Vvohnztvx Result EncounterGeneric External Data ProviderNOMS External Department UnsolicitedStart: 06-08-2024 End: 46-94-5139Xzawcbleg Result EncounterGeneric External Data ProviderNOMS External Department UnsolicitedStart: 06-08-2024 End: 01-21-5661jzkeqonyfkZTTNRH B BERRY IIFacility:[facility] Start: 06-08-2024 End: 41-49-3825Lxtlsmfpzt hospital visit by physicianMri 7 Radio Main Q (I-Stat/1.5t/3t) Work Phone: MRI QComment on above:Low back pain, unspecified back pain laterality, unspecified chronicity, unspecified whether sciatica present [M54.50]Start: 06-07-2024 End: 82-89-0265Ezxwfkgxt Result EncounterGeneric External Data ProviderNOMS External Department UnsolicitedStart: 06-07-2024 End: 31-09-8612Qvbyazxam Result EncounterGeneric External Data ProviderNOMS External Department UnsolicitedStart: 06-06-2024 End: 55-61-6358Wphnszxhv encounterYesica Bright RNTransplant CenterComment on above:CARDIAC SUBCOMMITTEE MTGStart: 06-04-2024 End: 68-19-1832Bbbanwhbw Result EncounterGeneric External Data ProviderNOMS External Department UnsolicitedStart: 06-04-2024 End: 97-01-9837Vdzbyfbsd Result EncounterGeneric External Data ProviderNOMS External Department UnsolicitedStart: 06-04-2024 End: 96-16-1740cbvdjfbftyQFOTUG B BERRY IIFacility:[facility] Start: 06-04-2024 End: 50-89-3515Jkjwytjtws hospital visit by Brett [facility] Simin Work Phone: RadiologyComment on above:Liver transplant candidate [Z76.82]Start: 06-03-2024 End: 29-55-3081Fjnspghue encounterYesica Bright RNTransplant CenterStart: 05-31-2024 End: 69-31-3938Bqzftlevu Result EncounterGeneric External Data ProviderNOMS External Department UnsolicitedStart: 05-31-2024 End: 10-56-9826Nvwrrxkuj Result EncounterGeneric External Data ProviderNOMS External Department UnsolicitedStart: 05-31-2024 End: 69-79-7856Vffhrwqcdi hospital visit by physicianHepatology Procedures Q3 GastroenterologyComment on above:Other ascites [R18.8]Start: 05-31-2024 End: 36-47-6653igmcvlrfzmUboa Taimeh MD Work Phone: Pulmonary MedicineComment on above:SpirometryPre-Op ExamStart: 05-31-2024 End: 09-77-3081Mhatpse encounter procedurePulm Fct Lab J-1Pulmonary Medicine Start: 95-38-1319liytifglmyJAAMFZ B BERRY IIFacility:[facility] Start: 05-30-2024 End: 36-13-8329Zksausjhyi hospital visit by physicianRaymond Penaloza MD Work Phone: AdmittingComment on above:Bronchiolar disease [J98.09] Start: 05-30-2024 End: 40-33-4444Rbklabfwz encounterYesica Bright RNTransplant CenterComment on above:Follow UpEducation Of Patient/familyUnilateral inguinal hernia without obstruction or gangrene, recurrence not specified (Primary Dx)Start: 05-29-2024 End: 77-37-7174iazlkglhbeLfhgdpijo Girard MD Work Phone: Pulmonary MedicineComment on above:TestsStart: 05-24-2024 End: 39-38-9708Ioldsw Irina Garg MD Work Phone: GastroenterologyComment on above:Other ascites (Primary Dx)Start: 05-23-2024 End: 95-91-8097Psfjbuu encounter procedurePulm Fct Lab Main 8Pulmonary Medicine Comment on above:Pleural effusion associated with hepatic disorder; Shortness of breath; Lesion of liver greater than 1 cm in diameter; Alcoholic cirrhosis of liver with ascites (HCC); Liver transplant candidate; Metabolic dysfunction-associated steatotic liver disease (MASLD)Start: 05-23-2024 End: 95-71-6038Znmwhyuvno hospital visit by physicianXr Chest Main X79Itopncyfc Comment on above:Dyspnea, unspecified type [R06.00]Start: 05-23-2024 End: 93-04-8500mjtcnewngaWkzs Fct Lab Main 8Pulmonary MedicineComment on above: SpirometryStart: 05-21-2024 End: 82-78-6801pxmtwqbuwiVytetwBrendan Arora MD Work Phone: CardiologyComment on above:Blood workStart: 05-20-2024 End: 90-52-7866kwnibuqsbpFlsozzBrendan Arora MD Work Phone: CardiologyComment on above:Blood workStart: 05-20-2024 End: 17-56-9078Nkropxfop encounterYesica Bright RNTransplant CenterStart: 05-18-2024 End: 83-47-7218Xmmmkx Irina Garg MD Work Phone: GastroenterologyComment on above:Liver mass (Primary Dx); Low back pain, unspecified back pain laterality, unspecified chronicity, unspecified whether sciatica presentStart: 05-17-2024 End: 14-45-3335Rlewmttvg encounterYesica Bright RNTransplant CenterComment on above:Follow UpStart: 05-16-2024 End: 92-96-8736Wonfgi Jimmy Robledo MD Work Phone: NOMS CI FMStart: 05-16-2024 End: 76-48-5199Pvmgau Jimmy Robledo MD Work Phone: NOMS CI FMStart: 05-16-2024 End: 78-42-6266uqbannccjrOZXWHH B BERRYNot AvailableStart: 05-14-2024 End: 24-76-7264Qreozq Irina Garg MD Work Phone: Transplant CenterComment on above:Cirrhosis of liver without ascites, unspecified hepatic cirrhosis type (HCC) (Primary Dx)Start: 05-10-2024 End: 55-02-4670Jzxgfsxxw encounterSjigar Garg MD Work Phone: GastroenterologyComment on above:Results, LabResults Start: 05-09-2024 End: 41-70-4268Dzpoiyuju Result EncounterGeneric External Data ProviderNOMS External Department UnsolicitedStart: 05-09-2024 End: 12-26-8964Kembwcjqb Result EncounterGeneric External Data ProviderNOMS External Department UnsolicitedStart: 05-07-2024 End: 02-12-1010Cfbfybvke encounterYesica Bright RNTransplant CenterComment on above:Follow UpStart: 05-06-2024 End: 57-76-1668Sfuapalof encounterYesica Bright RNTransplant CenterStart: 05-04-2024 End: 48-93-1589Fzohku Irina Garg MD Work Phone: Transplant CenterStart: 05-82-0301Uqshnnewa for other preprocedural examinationCHRISTINE KOVALCleGlenbeigh HospitalStart: 05-02-2024 End: 88-33-3686Yzqfczi encounter statusBrisa Seals MD Work Phone: [facility] Hospitaltart: 05-02-2024 End: 61-10-5889zjeyyjnveoLSTZJLNML KOVALFacility:[facility] Hospitaltart: 05-02-2024 End: 80-12-7603Ucbhjca encounter procedureJade Arora MD Work Phone: CardiologyComment [...] evaluation for chronic liver diseaseStart: 05-01-2024 End: 34-26-1993hlhfudszvbIXSNORTH SHORE HEALTH LOWFacility:[facility] Hospitaltart: 05-01-2024 End: 79-64-2885Tszpeis encounter procedureAnesthesia [facility] Work Phone: Transplant CenterComment on above:Thrombocytopenia (HCC) (Primary Dx); Pleural effusion associated with hepatic disorder; Shortness of breath; Lesion of liver greater than 1 cm in diameter; Alcoholic cirrhosis of liver with ascites (HCC); Liver transplant candidate; Metabolic dysfunction-associated steatotic liver disease (MASLD)Other ascites (Primary Dx)Start: 05-01-2024 End: 99-20-2641Bvslzgqylk hospital visit by physicianHepatology Procedures Q3 GastroenterologyComment on above:Pleural effusion associated with hepatic disorder [K76.9, J91.8]Start: 05-01-2024 End: 52-97-0887tioqgqtobtWJYTDR JUNNAFacility:[facility] Hospitaltart: 04-30-2024 End: 38-05-6613Rvoqtf outpatient new 60 minutesChoon Wenceslao Weir MD [...] other malignant neoplasm of skinStart: 04-30-2024 End: 38-63-2614Upbhihn encounter statusChovelia Weir MD Work Phone: [facility]art: 04-30-2024 End: 10-93-9647Q-mail encounter from [facility]idiacrozer-[facility]len[facility]Trans[facility] Start: 04-30-2024 End: 10-42-8069Lwwxiuard encounterNenita Readus HUCAdmittingComment on above: Appointment; (Thoracentesis)Patient EducationStart: 04-30-2024 End: 82-73-0263Jltjdjt encounter procedureTransplant PharmacistTransplant Center Comment on above:Encounter for medication review and counselingStart: 04-30-2024 End: 34-26-6580xzujheqqiuAsmrjyroAtrium Health Pineville CenterComment on above:Pre liver CoordinatorStart: 04-29-2024 End: 77-63-5532Mxvjmiqwlj hospital visit by physicianCt 2 Main Qb (I-Stat) RadiologyComment on above:Lesion of liver greater than 1 cm in diameter [K76.9] Start: 04-29-2024 End: 58-18-6359Eszpfrvsh therapyNatalie Crtalic-Sandy RD Work Phone: Nutrition TherapyComment on above:Patient Education; AssessmentStart: 04-29-2024 End: 51-31-9671Wvxrzom encounter procedurePulm Fct Lab Main 8Pulmonary Medicine Comment on above:Pleural effusion associated with hepatic disorder; Shortness of breath; Lesion of liver greater than 1 cm in diameter; Encounter for screening for malignant neoplasm of prostate; Alcoholic cirrhosis of liver with ascites (HCC); Liver transplant candidate; Metabolic dysfunction-associated steatotic liver disease (MASLD)Start: 04-29-2024 End: 51-82-0910hyimygtwvqAddy Fct Lab Main 8Pulmonary MedicineComment on above: SpirometryStart: 04-25-2024 End: 35-68-3846qscgtfkdesMlkch Txp Coordinator Work Phone: Transplant CenterComment on above:Encounter for education (Primary Dx)Start: 04-25-2024 End: 32-86-9907Rniaotalxxas consultation with patientLiver Txp Coordinator Work Phone: Transplant CenterStart: 04-24-2024 End: 29-57-0419Fvtfvjywg encounterLiver Txp Coordinator Work Phone: Transplant CenterComment on above:Reminder Call; Liver EvalStart: 04-23-2024 End: 88-46-3394Tvrnqljja encounterVirginia Hickman RNTransplant CenterComment on above:Referral - Liver Txp (Intake)Start: 04-22-2024 End: 55-16-3709Ylzayvmqd encounterJlilian Aguayo TechTransplant CenterComment on above:Follow UpStart: 04-03-2024 End: 17-98-3184Ncyjufwtp Result EncounterGeneric External Data ProviderNOMS External Department UnsolicitedStart: 04-03-2024 End: 20-02-7818Rrdgydkoa Result EncounterGeneric External Data ProviderNOMS External Department UnsolicitedStart: 03-28-2024 End: 78-95-6825bdyxlfpvgmTpkqo Txp Coordinator Work Phone: Transplant CenterComment on above:Liver Transplant Start: 03-28-2024 End: 73-95-2979A-mail encounter from caregiverLiver Txp Coordinator Work Phone: Transplant CenterStart: 03-28-2024 End: 23-03-0975Arsslushr encounterLiver Txp Coordinator Work Phone: Transplant CenterComment on above:Referral - Liver Txp Start: 03-25-2024 End: 22-81-6114Miulhahmk encounterLiver Txp Coordinator Work Phone: Transplant CenterComment on above:Referral - Liver Txp Start: 03-12-2024 End: 71-25-5407Txkopfxak Result EncounterGeneric External Data ProviderNOMS External Department UnsolicitedStart: 03-12-2024 End: 63-29-8725Xrctvxgnh Result EncounterGeneric External Data ProviderNOMS External Department UnsolicitedStart: 03-08-2024 End: 36-58-2587hyipoflfgxFQOSUniversity Hospitals Beachwood Medical Centertart: 03-08-2024 End: 39-18-7482jvdmssinibJWEJUniversity Hospitals Beachwood Medical Centertart: 34-60-4260Bdqokmpusi and management of inpatientABDALLAH [facility] Hospitaltart: 30-60-9171Bsiskujgxi and management of inpatientFADI [facility] Hospitaltart: 02-19-2024 End: 96-73-6703eiszdhkvubDDBCUniversity Hospitals Beachwood Medical Centertart: 02-19-2024 End: 62-18-4505Paytgjazbn and management of inpatientMUHAMMAD [facility] Hospitaltart: 02-15-2024 End: 96-51-2637qhadyfqnhfUCBMMRS [facility] Start: 02-12-2024 End: 51-83-6209Ldzzvtjkl Result EncounterGeneric External Data ProviderNOMS External Department UnsolicitedStart: 02-12-2024 End: 83-71-8367Lwrdiycli Result EncounterGeneric External Data ProviderNOMS External Department UnsolicitedStart: 01-25-2024 End: 65-71-2173Hoajdzxnr Result EncounterGeneric External Data ProviderNOMS External Department UnsolicitedStart: 01-25-2024 End: 49-35-6542Ahlqmonde Result EncounterGeneric External Data ProviderNOMS External Department UnsolicitedStart: 01-24-2024 End: 95-46-3166Sthwzmqqt Result EncounterGeneric External Data ProviderNOMS External Department UnsolicitedStart: 01-24-2024 End: 35-89-5977Tbvadoxkm Result EncounterGeneric External Data ProviderNOMS External Department UnsolicitedStart: 01-18-2024 End: 64-85-5704Tayzqj lvMaryeze Aly Ward DO Work Phone: noms NB OPHTStart: 01-18-2024 End: 63-30-1930Mdvbzm Glennypatriciaeze Aly Ward DO Work Phone: noms NB OPHTStart: 01-18-2024 End: 88-37-6766axlikjwgtzVHFBXALD D ZAHLERNot AvailableStart: 01-05-2024 End: 52-80-8542Yzvzjjkdb Result EncounterGeneric External Data ProviderNOMS External Department UnsolicitedStart: 01-05-2024 End: 32-44-6522Wbskqnupn Result EncounterGeneric External Data ProviderNOMS External Department UnsolicitedStart: 01-03-2024 End: 89-15-9767Jsktckbev Result EncounterGeneric External Data ProviderNOMS External Department UnsolicitedStart: 01-03-2024 End: 28-35-4242Beeovxehi Result EncounterGeneric External Data ProviderNOMS External Department UnsolicitedStart: 01-03-2024 End: 16-62-0475uobsrnnjcwDX Daniel Berry Work Phone: [facility] Work Phone: Start: 01-03-2024 End: 30-73-4536Bnwnaqew ReferredJUDITH Robledo Work Phone: [facility]-LAB Path Spec [place] HospStart: 78-15-9732gsxixrkxztEWUVSub[facility] Start: 12-27-2023 End: 06-86-8203litazpezepVUBERegency Hospital Cleveland Easttart: 12-20-2023 End: 33-86-2047Rijcdgguz Result EncounterGeneric External Data ProviderNOMS External Department UnsolicitedStart: 12-20-2023 End: 18-36-4430Trcgwieqs Result EncounterGeneric External Data ProviderNOMS External Department UnsolicitedStart: 12-13-2023 End: 99-61-2234Dzlrnctgr Result EncounterGeneric External Data ProviderNOMS External Department UnsolicitedStart: 12-13-2023 End: 70-84-3771Ecjmikayu Result EncounterGeneric External Data ProviderNOMS External Department UnsolicitedStart: 12-13-2023 End: 99-38-7896Dnnxpuxecsmd care manage srvc 7 day dischargeXuan MALDONADO Work Phone: NOEB FMComment on above:Cirrhosis of liver with ascites, unspecified hepatic cirrhosis type (CMS/HCC) (Primary Dx); Dizziness; Abdominal distension; QUESADA (dyspnea on exertion); Gastroesophageal reflux disease without esophagitis; Other ascites; Secondary esophageal varices without bleeding (CMS/HCC)Start: 12-13-2023 End: 47-13-1541ztzdufxjvzYSDWI M HEMMERNot AvailableStart: 12-12-2023 End: 84-55-4614mvzgajjnowAI Daniel Berry Work Phone: [facility] Work Phone: Start: 12-12-2023 End: 26-95-6211Fybbxeyd ReferredII Sanjay Robledo Work Phone: [facility]-LAB Path Spec [place] HospStart: 12-08-2023 End: 07-87-5050Gzaytobvl Result EncounterGeneric External Data ProviderNOMS External Department UnsolicitedStart: 12-08-2023 End: 40-30-7575Wnddfvmav Result EncounterGeneric External Data ProviderNOMS External Department UnsolicitedStart: 12-08-2023 End: 61-58-8034nblzefmuvhWP Daniel Berry Work Phone: [facility] Work Phone: Start: 12-08-2023 End: 75-61-6443Issmnquu ReferredII Sanjay Robledo Work Phone: [facility]-LAB Path Spec [place] HospStart: 94-45-8174Qmk-patient / Non-visitII Sanjay Robledo Work Phone: [facility] Out[facility] Work Phone: Start: 12-07-2023 End: 49-40-6384nesijqihosRH Sanjay Robledo Work Phone: [facility] Work Phone: Start: 12-07-2023 End: 89-52-0130Sdecshne ReferredJUDITH Robledo Work Phone: [facility]-LAB Path Spec [place] HospStart: 12-07-2023 End: 69-30-6170Lwaqzbvhm Result EncounterGeneric External Data ProviderNOMS External Department UnsolicitedStart: 12-07-2023 End: 55-30-7097Lywejupzf Result EncounterGeneric External Data ProviderNOMS External Department UnsolicitedStart: 11-27-2023 End: 42-08-1993rczlreieavLVSDUniversity Hospitals Beachwood Medical Centertart: 11-15-2023 End: 35-44-6917acufknrdgqMYXOZU B BERRYNot AvailableStart: 11-14-2023 End: 62-20-9473xummlfgvegNSVNYPB RESEARCHGuernsey Memorial Hospital Start: 11-08-2023 End: 23-21-8176birwvqlhjnCQORFA LOWENot AvailableStart: 10-23-2023 End: 76-30-5948Xrtyiyjhj Result EncounterGeneric External Data ProviderNOMS External Department UnsolicitedStart: 10-23-2023 End: 49-10-5787Vbrcjnywc Result EncounterGeneric External Data ProviderNOMS External Department UnsolicitedStart: 68-91-0164pikdlyosctIGSUUniversity Hospitals Beachwood Medical Centertart: 10-13-2023 End: 72-15-3259qtkrlrhwtsZNAYMercy Health – The Jewish Hospitaltart: 10-09-2023 End: 37-09-6448aqmynfaqonYWLDWH BERRYNot AvailableStart: 10-03-2023 End: 19-62-4686Pilexsoqn Result EncounterGeneric External Data ProviderNOMS External Department UnsolicitedStart: 10-03-2023 End: 91-70-0128Cxjcpjypo Result EncounterGeneric External Data ProviderNOMS External Department UnsolicitedStart: 10-03-2023 End: 81-56-0003wnhkkqmtyuCY Sanjay Robledo Work Phone: [facility] Work Phone: Start: 10-03-2023 End: 11-01-4877Lzwpsegx ReferredII Sanjay Robledo Work Phone: [facility]-LAB Path Spec [place] HospStart: 10-02-2023 End: 75-63-6343xuzfwtjqvvASUVCRKZ DENBESTENNot AvailableStart: 09-25-2023 End: 33-81-2337qfcntwvqnvZSQPPQEX [facility] Healthcaretart: 09-15-2023 End: 45-74-4471ofavaauijtZOEZNZ BENEDICTNot AvailableStart: 09-12-2023 End: 81-04-3319Xecvxutay Result EncounterSastrid Esparza MD Work Phone: noms External Department UnsolicitedStart: 09-12-2023 End: 12-48-1879Bxtawcvps Result EncounterSastrid Esparza MD Work Phone: noms External Department UnsolicitedStart: 09-05-2023 End: 98-08-0671apwaxtdqnjGPKOOD BENEDICTNot AvailableStart: 08-30-2023 End: 42-72-7178jzizrlmefeMUXFCR BENEDICTNot AvailableStart: 07-12-2023 End: 75-05-8559ebwcrbtkmhIldfttv H ItzkowitzFacility:EU [place]uskyStart: 07-12-2023 End: 11-68-1067Elvuxpr encounter procedurePatricalbania ARRIAZA [facility] Josue Start: 07-05-2023 End: 72-68-9584maqdbxdopbRE Sanjay Robledo Work Phone: [facility] Work Phone: Start: 07-05-2023 End: 66-60-3232Qszppes encounter procedureII Sanjay Robledo Work Phone: [facility] Gastroenterology Work Phone: Start: 82-01-0235xmpwtyokwvLvsxbtn Itzkowitz Facility: DelmypalmettoyStart: 06-13-2023 End: 14-90-0840Ypkmwscvt to same day surgery centerII Sanjay Robledo Work Phone: [facility] CampusStart: 06-02-2023 End: 00-97-2063ormvptcypeFH Sanjay Robledo Work Phone: [facility] Work Phone: Start: 06-02-2023 End: 70-19-7528Ademcgu encounter procedureII Sanjay Robledo Work Phone: [facility]-Pre-Surgical Testing Work Phone: Start: 05-31-2023 End: 97-55-6035Rsfssm outpatient visit 25 minutesFredric H Itzkowitz DO Work Phone: noms ST GENSComment on above:Fissure in ano (Primary Dx)Start: 05-23-2023 End: 64-12-3977Ymgetrnnl to same day surgery centerII Sanjay Robledo Work Phone: [facility]-Digestive Health Work Phone: Start: 05-18-2023 End: 28-39-8512Efmbbe outpatient new 45 minutesFredric H Itzkowitz DO Work Phone: noms ST GENSComment on above:Fissure in anoStart: 05-11-2023 End: 93-64-4432azsiggtrduPtzc [employer] Other [place] [employer] Other Start: 80-87-6377Rdqnej outpatient visit 15 minutes Rick ScJanellG GastroenterologyStart: 04-28-2023 End: 95-62-0783kwbcrfrgkhYtca [employer] Other noAGNITiO Other Start: 80-14-1944Olgbnzrub encounterRyan ScovannerFPG GastroenterologyStart: 04-27-2023 End: 23-86-1370hlaslkcxfoNbgv [employer] Other noAGNITiO Other Start: 65-20-6229Guwadyyjm encounterRyan ScovannerFPG GastroenterologyStart: 04-26-2023 End: 44-74-8753Ywmupbi encounter procedureII Sanjay Robledo Work Phone: [facility] Work Phone: Start: 04-13-2023 End: 04-34-9632ksogsbsqtgDltd [employer] Other [employer] Other Start: 60-50-0042Fhzabvwsa encounterRyan ScovannerFPG GastroenterologyStart: 69-04-3406Dvnjkg outpatient visit 25 minutesRyan ScovannerFPG GastroenterologyStart: 18-39-3496Jlsehyyzr encounterRyan Scovanner FPG GastroenterologyStart: 04-12-2023 End: 22-87-4563nbjuzrsrrpPS Sanjay Robledo Work Phone: [place] [facility] [employer] Other Start: 04-12-2023 End: 00-18-3241Mhqtprc encounter procedureII Sanjay Robledo Work Phone: [facility] Work Phone: Start: 04-12-2023 End: 30-28-7081Zgakvhc encounter procedureII Sanjay Robledo Work Phone: [facility] Work Phone: Start: 04-03-2023 End: 77-20-6631zrrywoyyfxSgiw [employer] Other [employer] Other Start: 31-20-4215Rdqgtcnom encounterRyan ShannonFPG GastroenterologyStart: 11-18-2022 End: 82-01-0527yfykrdmutxCrqt [employer] Other noAGNITiO Other Start: 63-17-2922Wnxstzbdt encounterRyan ScnayaFPG GastroenterologyStart: 11-15-2022 End: 80-05-9064earpvebkdjIK Sanjay Robledo Work Phone: [facility] Work Phone: Start: 11-15-2022 End: 85-58-3324Mvyhdnk encounter procedureII Sanjay Robledo Work Phone: [facility]-Ultrasound Main [place] Work Phone: Start: 11-10-2022 End: 36-01-0285pluwnpsjfvFrdb [employer]anner Other [employer] Other Start: 67-95-3958Iovuqt outpatient visit 15 minutes Rick JimenzeG GastroenterologyStart: 11-03-2022 End: 27-33-8866Njdzrfr encounter procedureII Sanjay Robledo Work Phone: [facility]-Digestive Health Work Phone: Start: 10-26-2022 End: 92-71-0540jsrmuzplflPK Sanjay Robledo Work Phone: [facility] Work Phone: Start: 10-26-2022 End: 30-84-6197Jogopatk ReferredII Sanjay Venkat Work Phone: [facility]-Digestive Health Work Phone: Start: 10-26-2022 End: 99-92-6184Xgvcply encounter procedureII Sanjay Venkat Work Phone: [facility]-Digestive Health Work Phone: Start: 09-21-2022 End: 60-35-7197Edxqcbdvk to same day surgery centerII Sanjay Robledo Work Phone: [facility]-Digestive Health Work Phone: Start: 09-21-2022 End: 12-60-4470hwoxldagwbPQ Sanjay Robledo Work Phone: [facility] Work Phone: Procedures DateProcedureProcedure DetailPerforming ClinicianStart: 10-37-3637TN LUMBAR SPINE WO IVCONGeneric External Data ProviderStart: 15-72-6817ML THORACIC SPINE WO IVCONGeneric External Data ProviderStart: 38-49-5494Oxtlmmeh screenSANJAY ROBLEDO IIComment on above:Order Comment: Specimen Type: BLOOD SPECIMENOrdering Facility: [facility] Address: [address] [place], [place] [address]Performed By: #### TSCR ####CC MAIN BLOOD BANKCLIA [id number] [address] AMERICAStart: 64-04-9500QOS CBC W AUTO DIFF BLDGeneric External Data Provider Start: 10-68-8567GBR NT-PROBNP SERPL-MCNCGeneric External Data ProviderStart: 96-39-9461VSH COMP METAB 2000 PNL SERPLGeneric External Data ProviderStart: 85-02-2791ZJC CRP SERPL-MCNCGeneric External Data ProviderStart: 62-36-2101FGT MAGNESIUM SERPL-MCNCGeneric External Data ProviderStart: 20-50-6250Mgaqpcin screenSANJAY ROBLEDO IIComment on above:Order Comment: Specimen Type: BLOOD SPECIMENOrdering Facility: [facility] Address:[address] [place], [place] [address]Performed By: #### TSCR ####CC MAIN BLOOD BANKCLIA [id number] [address] AMERICAStart: 64-81-1590Hhuhenny screenDAJACKIE ROBLEDO IIComment on above:Order Comment: Specimen Type: BLOOD SPECIMENOrdering Facility: [facility] Address:[address] [place], [place] [address]Performed By: #### TSCR ####CC MAIN BLOOD BANKCLIA [id number] [address] AMERICAStart: 69-96-9026VVM BACTERIA UR CULTGeneric External Data ProviderStart: 99-37-7344EUH BACTERIA BLD CULTGeneric External Data ProviderStart: 48-09-3081Susgyjfc screenDANICIARA ROBLEDO IIComment on above: Order Comment: Specimen Type: BLOOD SPECIMENOrdering Facility: [facility] Address:[address] [place], [place] [address]Performed By: #### TSCR ####CC MAIN BLOOD BANKCLIA [id number] [address] AMERICAStart: 73-03-7657QfyzafcfbvofyakmRnaltfo External Data ProviderStart: 67-57-7611Mbq routine ecg w/least 12 lds w/i&rGeneric External Data ProviderStart: 60-49-1107VJO CYTOLOGY NON-GYNGeneric External Data ProviderStart: 92-12-3965MWU BACTERIA BLD CULTGeneric External Data Provider Start: 92-81-8759GTA BACTERIA FLD CULTGeneric External Data ProviderStart: 57-12-8229NDZ BACTERIA SPEC RESP CULTGeneric External Data ProviderStart: 12-16-2024 End: 19-35-1674JXK BACTERIA BLD CULTGeneric External Data ProviderStart: 13-76-4947BXG RESP PATH 12B PNL SPEC JESSICA+PROBEGeneric External Data Provider Start: 58-38-3532GLU BACTERIA FLD CULTGeneric External Data ProviderStart: 94-15-2122Waz routine ecg w/least 12 lds w/i&rGeneric External Data Provider Start: 73-36-6026Iig routine ecg w/least 12 lds w/i&rGeneric External Data ProviderStart: 10-75-5969Jkq routine ecg w/least 12 lds w/i&rGeneric External Data ProviderStart: 68-96-3936Nsh routine ecg w/least 12 lds w/i&rGeneric External Data ProviderStart: 18-48-3707PSX BACTERIA WND CULTGeneric External Data ProviderStart: 11-22-2024 End: 69-48-4482VRU BACTERIA BLD CULTGeneric External Data ProviderStart: 60-70-0867Vkr routine ecg w/least 12 lds w/i&rGeneric External Data Provider Start: 69-06-7965SKXWU CULTURE 1Generic External Data ProviderStart: 11-19-2024 URINE CULTURE - FRMCGeneric External Data ProviderStart: 81-72-4399Zqnoh 1996 panel - Serum or PlasmaLiver Coordinator Work Phone: Start: 85-76-5530Tgqml count complete auto&auto difrntl wbcCamila Meyers [employer]NON [employer]INION ADJUSTER.SWIMMING COACH OR INSTRUCTOR Work Phone: Start: 90-36-6532MXY COMP METAB 2000 PNL SERPLGeneric External Data ProviderStart: 63-58-5688JBG MAGNESIUM SERPL-MCNCGeneric External Data ProviderStart: 26-33-5239RLT PHOSPHATE SERPL-MCNCGeneric External Data ProviderStart: 50-48-0294JEBT INTERP CBCDIF (LAB REFLEX ORDER-NO BILL)Camila Meyers [employer] ADJUSTER.SWIMMING COACH OR INSTRUCTOR Work Phone: Start: 22-36-9483DPOEE REVIEWCamila Meyers [employer]INION ADJUSTER.SWIMMING COACH OR INSTRUCTOR Work Phone: Start: 07-02-9442Lygtm count complete auto&auto difrntl wbcSaman Anthony DO Work Phone: Start: 12-90-2501P-reactive proteinSaman [facility] DO Work Phone: Start: 32-23-8768ULA PHOSPHATE SERPL-MCNCGeneric External Data ProviderStart: 19-59-6229JNXRTvwwvsq External Data ProviderStart: 85-31-2239Ovnb dx collection specimen brushing/washingNick Cameron PA-C Work Phone: Start: 34-11-3463Vavmn count complete auto&auto difrntl wbcDavid Cruz DO Work Phone: Start: 77-14-9850T-reactive proteinSaman Anthony DO Work Phone: Start: 18-98-2593FRX NT-PROBNP SERPL-MCNCGeneric External Data ProviderStart: 75-96-8682Fuwjg cytomegalovirus quantificationSadenise Cruz DO Work Phone: Start: 49-05-1244Gycgnip serum plasma/whole blood Camila Meyers [employer]INION ADJUSTER.SWIMMING COACH OR INSTRUCTOR Work Phone: Start: 94-36-2946SAO ALBUMIN SERPL-MCNCGeneric External Data ProviderStart: 16-76-1936YAD BAS METAB 2000 PNL SERPLGeneric External Data ProviderStart: 32-58-9129WNW MAGNESIUM SERPL-MCNCGeneric External Data ProviderStart: 41-46-2727ZKZ PHOSPHATE SERPL-MCNCGeneric External Data ProviderStart: 79-05-8182Edjfk count complete auto&auto difrntl wbcDavid Cruz DO Work Phone: Start: 78-64-7188Z-reactive proteinSaman Anthony DO Work Phone: Start: 58-73-7693CDB PHOSPHATE SERPL-MCNCGeneric External Data ProviderStart: 51-01-6483Xjeru count complete auto&auto difrntl wbcDavid Cruz DO Work Phone: Start: 76-47-2335T-reactive proteinSaman Anthony DO Work Phone: Start: 31-69-7753CSA NT-PROBNP SERPL-MCNCGeneric External Data ProviderStart: 56-43-9807Qhrcj cytomegalovirus quantificationDavid Cruz DO Work Phone: Start: 44-74-8830Waiku count complete auto&auto difrntl wbcZachary Meyers CAN[employer] PINION ADJUSTER.SWIMMING COACH OR INSTRUCTOR Work Phone: Start: 42-30-7755KIL MAGNESIUM SERPL-MCNCGeneric External Data ProviderStart: 87-34-6082QVX RENAL FUNC 1999 PNL SERPLGeneric External Data ProviderStart: 02-83-6557Qnnmf count complete auto&auto difrntl wbcZachary Luigi [employer]INION ADJUSTER.SWIMMING COACH OR INSTRUCTOR Work Phone: Start: 84-76-4472XWD MAGNESIUM SERPL-MCNCGeneric External Data ProviderStart: 46-79-6430MZS NT-PROBNP SERPL-MCNCGeneric External Data ProviderStart: 03-06-4683WVU RENAL FUNC 1999 PNL SERPLGeneric External Data ProviderStart: 85-30-0799Fxmvo count complete auto&auto difrntl wbcDavid Hughesaffari DO Work Phone: Start: 81-10-0830M-reactive proteinSaman Anthony DO Work Phone: Start: 46-59-5252HBY PHOSPHATE SERPL-MCNCGeneric External Data ProviderStart: 21-14-9008LOB BACTERIA SPEC ANAEROBE CULTGeneric External Data ProviderStart: 74-08-7915MushdhvacpuotalpSvaxkmn External Data ProviderStart: 30-47-8371Bfp routine ecg w/least 12 lds w/i&rGeneric External Data ProviderStart: 37-69-1123IAP CYTOLOGY NON-GYNGeneric External Data Provider Start: 62-64-3979Xha routine ecg w/least 12 lds w/i&rGeneric External Data ProviderStart: 22-57-8753ZPN O+P SPEC MICROGeneric External Data ProviderStart: 13-84-6174NWK RESP PATH 12B PNL SPEC EJSSICA+PROBEGeneric External Data Provider Start: 04-11-6507XI ABD/PEL WO IVCONGeneric External Data ProviderStart: 40-91-4157AJ BRAIN WO IVCONGeneric External Data ProviderStart: 92-09-1495Fh head/brain w/o contrast materialSaman Anthony DO Work Phone: Start: 22-73-1705Dahtb count complete auto&auto difrntl wbcSadenise Cruz DO Work Phone: Start: 69-81-8707R-reactive proteinSaman Anthony DO Work Phone: Start: 72-74-1153NKQ CBC W AUTO DIFF BLDGeneric External Data ProviderStart: 25-24-5565Zzcbg cytomegalovirus quantificationSadenise Cruz DO Work Phone: Start: 10-72-7098Xqves count complete auto&auto difrntl wbcSuze Jenkins MD Work Phone: Start: 95-12-8990XOS CBC W AUTO DIFF BLDGeneric External Data ProviderStart: 62-41-9443Kifpa count complete auto&auto difrntl wbcZajosé miguel Meyers APRN.SWIMMING COACH OR INSTRUCTOR Work Phone: Start: 40-36-1823XHF CBC W AUTO DIFF BLDGeneric External Data ProviderStart: 95-65-9091Huyso count complete auto&auto difrntl wbcDavid Cruz DO Work Phone: Start: 36-64-7766R-reactive proteinSaman Anthony DO Work Phone: Start: 76-88-1968TFE CBC W AUTO DIFF BLDGeneric External Data ProviderStart: 14-97-3585Sgqfi count complete Moody Trinidad MD Work Phone: Start: 97-87-6087LXL CBC PNL BLD AUTOGeneric External Data ProviderStart: 30-19-5689Jkul screen quantitative tacrolimusDavid Cruz DO Work Phone: Start: 95-00-2685Zzrqd count complete auto&auto difrntl wbcSuze Jenkins MD Work Phone: Start: 39-80-5528P-reactive proteinSuze Jenkins MD Work Phone: Start: 03-97-2179EXT CBC W AUTO DIFF BLDGeneric External Data ProviderStart: 46-45-7543Wyllv count complete auto&auto difrntl wbcDavid Cruz DO Work Phone: Start: 36-38-8008V-reactive proteinSaman Anthony DO Work Phone: Start: 65-78-7227TTG CBC W AUTO DIFF BLDGeneric External Data ProviderStart: 16-14-9497Xwnfi cytomegalovirus quantificationDavid Cruz DO Work Phone: Start: 09-29-2024 End: 07-25-1423Atz routine ecg w/least 12 lds i&r onlyDavid Cruz DO Work Phone: Start: 27-11-6495DHZ 12-LEADGeneric External Data ProviderStart: 99-20-5907IUA26Qnkdfer External Data ProviderStart: 73-47-1930Aub routine ecg w/least 12 lds w/i&rGeneric External Data ProviderStart: 09-24-2024 CCF BACTERIA WND CULTGeneric External Data ProviderStart: 09-10-2024 End: 12-18-2024H/O: liver recipientS/P liver transplantMary Toney RNStart: 09-09-2024H/O: liver recipientStatus post liver transplantMamasha Vázquez RNStart: 39-83-9178MOG BACTERIA FLD CULTGeneric External Data ProviderStart: 09-08-2024 [facility] FLUABV+SARS-COV-2+RSV PNL RESP JESSICA+PROBEGeneric External Data ProviderStart: 13-56-8326Ige routine ecg w/least 12 lds w/i&rGeneric External Data Provider Start: 66-45-9353XDR BACTERIA SPEC ANAEROBE CULTGeneric External Data Provider Start: 00-00-6767JTAL PATH BX REPORTGeneric External Data ProviderStart: 09-71-7230Gfw routine ecg w/least 12 lds w/i&rGeneric External Data Provider Start: 50-30-9887OPSS PATH BX REPORTGeneric External Data ProviderStart: 31-39-7356HiialbqfzusLrphmtkg Bright RNStart: 32-01-9613Zfl routine ecg w/least 12 lds w/i&rGeneric External Data ProviderStart: 41-61-2569UI PARACENTESIS (POC) DDI USE ONLYMira Black PA-C Work Phone: Start: 08-23-2024 End: 89-56-2995TZZ BACTERIA BLD CULTGeneric External Data ProviderStart: 39-67-4057WB BIOPSY VERTEBRA OR FEMURGeneric External Data ProviderStart: 31-07-1940NVW CMP (CMP) (FOR REMOTE [facility] USE)Generic External Data ProviderStart: 85-49-4580MCU CMP (CMP) (FOR REMOTE [facility] USE)Generic External Data Provider Start: 35-80-7696KXS CMP (CMP) (FOR REMOTE [facility] USE)Generic External Data ProviderStart: 61-75-8013Nqkni paracentesis dx/ther w/imaging guidanceDmitri Garg MD Work Phone: Start: 50-35-1270BJ MANUAL DIFFLetitia E Livingston CANNON PINION ADJUSTER.SWIMMING COACH OR INSTRUCTOR Work Phone: start: 31-12-7089Qmkd count misc body fluids w/differential countLetitia E Alex CAN[employer] PINION ADJUSTER.SWIMMING COACH OR INSTRUCTOR Work Phone: start: 42-31-2140KN PARACENTESIS (POC) DDI USE ONLY Elsy E Alex CANNON PINION ADJUSTER.SWIMMING COACH OR INSTRUCTOR Work Phone: start: 35-66-3111Fieuwicxbbbogxq guided puncture and aspiration of abdomenDaniel Robledo II Work Phone: Start: 16-54-4512VFH CBC WITH AUTO DIFFGeneric External Data ProviderStart: 07-85-1229XDU CERVICAL SPINE WO/W IVCONGeneric External Data ProviderStart: 60-70-2046XMU LUMBAR SPINE WO/W IVCONGeneric External Data ProviderStart: 52-33-6033Sdc spinal canal thoracic w/o & w/contr matrlShitess Garg MD Work Phone: Start: 99-42-0744XCH THORACIC SPINE WO/W IVCONGeneric External Data ProviderStart: 59-76-0094QWQ CMP (CMP) (FOR REMOTE [facility] USE)Generic External Data ProviderStart: 18-88-1027Yz pelvic nonobstetric image dcmtn limited/f/uSjigar Garg MD Work Phone: Start: 59-73-7957QJ PELVIS LTDGeneric External Data ProviderStart: 62-80-9729Eyilc paracentesis dx/ther w/imaging guidanceDmitri Garg MD Work Phone: [phone]: 20-72-8472XL MANUAL DIFFJessica Zangmeister CANNON PINION ADJUSTER.SWIMMING COACH OR INSTRUCTOR Work Phone: [phone]: 60-73-3959MFF BODY FLUID CELL COUNTGeneric External Data ProviderStart: 12-85-5703Lknp count misc body fluids w/differential countJessica Zangmeister CAN[employer] PINION ADJUSTER.SWIMMING COACH OR INSTRUCTOR Work Phone: Start: 04-52-5450RW PARACENTESIS (POC) DDI USE ONLY Kathy Zangmedianna CANNON PINION ADJUSTER.SWIMMING COACH OR INSTRUCTOR Work Phone: [phone]: 32-21-9131Cg diffusing capacityChrismelissa Bull MD Work Phone: Start: 05-30-2024 End: 82-68-7415Hbqgfagxosumn needle/cath pleura w/imagingThomas Shannon Penaloza MD Work Phone: Start: 33-16-5452Whrsjhcek rspse spmtry pre&post- brncdilat admnChrjavier Bull MD Work Phone: Start: 89-84-9259Tfplfcsxcc exam chest 2 views Brisa Bull MD Work Phone: Start: 30-30-2417CNH CBC WITH AUTO DIFFGeneric External Data ProviderStart: 68-23-3878Wfvqc paracentesis dx/ther w/imaging guidanceLee Ann Art MD Work Phone: Start: 50-88-8804Yxfauwa serum plasma/whole bloodDonerin Benoit [employer]INION ADJUSTER.SWIMMING COACH OR INSTRUCTOR Work Phone: Start: 92-32-1257LG MANUAL DIFFDonna Cy CANNON PINION ADJUSTER.SWIMMING COACH OR INSTRUCTOR Work Phone: Start: 11-11-2188Hiiz count misc body fluids w/differential countDonna Cy [employer]INION ADJUSTER.SWIMMING COACH OR INSTRUCTOR Work Phone: Start: 78-26-5978Vxx bact xcpt urine blood/stool aerobic isolRosalinda Benoit CANNON PINION ADJUSTER.SWIMMING COACH OR INSTRUCTOR Work Phone: Start: 96-16-8420ZV PARACENTESIS (POC) DDI USE ONLY Rosalindaerin Benoit CAN[employer] PINION ADJUSTER.SWIMMING COACH OR INSTRUCTOR Work Phone: Start: 27-87-5162Lj abdomen w/contrast materialSjigar Garg MD Work Phone: Start: 11-10-4521Yzmzsb w/vc expiratory edy w/wo mxml vol vntjSjigar Garg MD Work Phone: Start: 71-18-8109Gbwjm 1995 panel - Serum or Plasma Pulm 8Start: 28-73-5612OE PARACENTESIS ABD W/IMAGEGeneric External Data Provider Start: 59-59-3263JQ PARACENTESIS ABD W/IMAGEGeneric External Data ProviderStart: 66-46-7317Xbjrr 1995 panel - Serum or PlasmaLiver Coordinator Work Phone: Start: 50-32-7637CDR CBC WITH AUTO DIFFGeneric External Data ProviderStart: 35-05-0065Poe abdomen w/o & w/contrast material Generic External Data ProviderStart: 44-74-7871NH PARACENTESIS ABD W/IMAGE Generic External Data ProviderStart: 58-00-0517Hsm bmtry prtl coher intrfrmtry io lens pwr calIra Mitchell Ward DO Work Phone: Start: 01-18-2024 End: 50-60-7002Sjbma medical xm&eval compre new pt 1/> vstAge-related nuclear cataract of both eyesIra Mitchell Deisadriana DO Work Phone: comment on above:Age-related nuclear cataract of both eyes (Primary Dx)Start: 31-92-4867NN ABDOMEN 1VGeneric External Data Provider Start: 83-19-9931IN PARACENTESIS ABD W/IMAGEGeneric External Data ProviderStart: 26-28-0956OHBB AFP TUMOR MARKERGeneric External Data ProviderStart: 01-03-2024 SRMCOH PROTHROMBIN TIME INR W/O COUMGeneric External Data ProviderStart: 50-19-4979JJ ECHO DOPPLER Cailin MALDONADO Work Phone: Start: 21-39-6523CUN CBC WITH AUTO DIFFGeneric External Data ProviderStart: 75-07-1394JLQQ AFP TUMOR MARKERGeneric External Data ProviderStart: 88-73-3989LYE CMP (CMP) (FOR REMOTE [facility] USE)Generic External Data ProviderStart: 29-45-7347GMGY FLUID CULTURE, STERILEGeneric External Data ProviderStart: 07-22-1246TXLP STAIN RESULTGeneric External Data ProviderStart: 58-51-5161OR PARACENTESIS ABD W/IMAGEGeneric External Data ProviderStart: 59-39-4573JS PARACENTESIS ABD W/IMAGEGeneric External Data ProviderStart: 23-09-7242UEB BASIC METABOLIC PANELGeneric External Data ProviderStart: 89-28-3542LFK CBC WITH AUTO DIFFGeneric External Data ProviderStart: 10-23-2023 SRMCOH PROTHROMBIN TIME INR W/O COUMGeneric External Data ProviderStart: 98-78-1931OD PARACENTESIS ABD W/IMAGEGeneric External Data ProviderStart: 26-85-0523ELT, SUBCLASSES(1-4)Generic External Data ProviderStart: 00-16-8450EAA MISCELLANEOUS TESTGeneric External Data ProviderStart: 11-73-1576KXYS CT, SEROUS FLUIDGeneric External Data ProviderStart: 56-59-3379GTSPUQG, BODY FLUID Generic External Data ProviderStart: 60-68-2300YP HEAD/BRAIN WO Dimitrios Esparza MD Work Phone: Start: 06-09-6804Vcfxckjf of lesion of anusII Sanjay Robledo Work Phone: Start: 81-76-6493Nospegpxlc manometryII Sanjay Robledo Work Phone: Start: 60-35-1662Pdvzrsrlvqpc gastric emptying studyII Sanjay Robledo Work Phone: Start: 96-96-8003Tqqbtxjchjslrht of liverII Sanjay Robledo Work Phone: Start: 92-34-3670Irrckbgwus elastography of liverII Sanjay Robledo Work Phone: Start: 31-79-0230OiihdukbazwkkiebwjlemuktdvCT Sanjay Robledo Work Phone: Start: 07-56-5919YuwtkbpevdgDmzzdkc Itzkowitz DO Work Phone: Start: 59-37-4403SafnyarpsyiVuyayxh ProviderStart: 50-02-4432DgmnuledisxOcdnz Coordinator Work Phone: Plan of Treatment DateCare ActivityDetailAuthorStart: 84-74-0098Oqcourees for malignant neoplasm of colonNOMS HealthcareStart: 43-14-5264Zuybhlhut for malignant neoplasm of colonNOMS HealthcareStart: 82-65-7413Biljj microalbumin profileDTaP,Tdap,Td Vaccine (2 - Td or Tdap)[facility]art: 82-15-1892Sdxma panelLipid ScreeningLouis [facility] Centertart: 58-06-3893Gnirybueu for malignant neoplasm of colonSigmoidoscopyNOMS HealthcareStart: 05-07-7923Yxegztrav for malignant neoplasm of colonLouis [facility] Centertart: 30-92-8436Zpagiyjhc for malignant neoplasm of colonNOMS HealthcareStart: 83-62-7166Ybhgm panelLipid Screening [facility]ertart: 82-67-4334Lxbnv panelLipid ScreeningTri[facility] Start: 80-72-4754YQB Vaccine (1 - 1-dose 75+ series)RSV Vaccine (1 - 1-dose 75+ series)[facility] Centertart: 63-27-4757Kkhyzooi ScreeningDiabetes Screening [facility] Centertart: 02-42-3483Gtzregjr ScreeningDiabetes ScreeningLouis [facility] Centertart: 02-60-2927Glbbpzxv ScreeningDiabetes ScreeningTrihealth [facility] Start: 70-10-7683Vglvtiyr ScreeningDiabetes ScreeningLouis [facility] Centertart: 36-66-6211Rtozoweg ScreeningDiabetes ScreeningLouis [facility] Centertart: 11-16-2027 Diabetes ScreeningDiabetes ScreeningLouis Stokes [facility] Centertart: 98-21-8331Xynekfdr ScreeningDiabetes ScreeningLouis [facility] Centertart: 1953Oqtndcyz Screening Diabetes ScreeningLouis [facility] Centertart: 70-41-0270Kkcaxamt ScreeningDiabetes ScreeningLouis [facility] Centertart: 57-29-8406Aacdeckd ScreeningDiabetes Screening [facility]ertart: 43-77-7299Jfvfejxg ScreeningDiabetes ScreeningLouis Stokes [facility] Centertart: 94-35-6507Trpsiqjo ScreeningDiabetes ScreeningTrihealth [facility] Start: 17-24-2953Mkmfkvjp ScreeningDiabetes ScreeningLouis [facility] Centertart: 90-84-3657Zgfjnzdg ScreeningDiabetes ScreeningLouis [facility] Centertart: 10-10-2027 Diabetes ScreeningDiabetes ScreeningLouis [facility] Centertart: 32-76-8649Psbcxgpf ScreeningDiabetes ScreeningLouis [facility] Centertart: 97-60-9068Gsbsqzci Screening Diabetes ScreeningLouis [facility] Centertart: 50-73-1241Mhlmnyff ScreeningDiabetes ScreeningLouis Stokes [facility] Centertart: 18-46-8295Mhmalmew ScreeningDiabetes Screening [facility] Centertart: 25-13-0990Keeekpms ScreeningDiabetes ScreeningLouis Stokes [facility] Centertart: 38-99-9882Oyogrdya ScreeningDiabetes ScreeningTrihealth [facility] Start: 71-40-5632Zfvbacog ScreeningDiabetes ScreeningLouis [facility] Centertart: 35-11-9495Fnsdbmwk ScreeningDiabetes ScreeningLouis [facility] Centertart: 08-28-2027 Diabetes ScreeningDiabetes ScreeningLouis [facility] Centertart: 30-45-1652Nogbxfra ScreeningDiabetes ScreeningLouis Stokes [facility] Centertart: 85-02-7318Cnhwnkvm Screening Diabetes ScreeningLouis Stokes [facility] Centertart: 33-40-5525Wqwltdsq ScreeningDiabetes ScreeningLouis Stokes [facility] Centertart: 18-66-9153Hlejhagx ScreeningDiabetes Screening [facility]ertart: 45-63-0547Lmsmzodo ScreeningDiabetes ScreeningLouis Stokes [facility] Centertart: 56-95-0851Ofqgldac ScreeningDiabetes ScreeningTrihealth [facility] Start: 34-76-5121Jtsvjoox screeningDiabetes: Retinopathy ScreeningSaint Mary's Hospital of Blue SpringsStart: 13-67-6766Zlupgngugk measurementSerum CreatinineGodwin ClinicStart: 86-65-9459Tppavozjkl measurementSerum CreatinineTrihealth Bethesda [facility] Start: 51-59-3896Uwgebpsnqu measurementSerum CreatinineLouis Stokes [facility] Centertart: 78-88-2678Ivzdhnwv blood countHemoglobin/HematocritGodwin ClinicStart: 59-95-1060Auhzcnjhvx measurementSerum CreatinineLouis [facility] Centertart: 64-13-0982Muaybken blood countHemoglobin/HematocritGodwin ClinicStart: 17-14-2062Mabuzbyahv measurementSerum CreatinineLouis [facility] Centertart: 90-29-0226Gtinalctjx measurementSerum CreatinineLouis Stokes [facility] Centertart: 58-51-9535Vhffydnh blood countHemoglobin/HematocritLouis Stokes [facility] Centertart: 21-93-6597Nzaygrdmsr measurementSerum CreatinineLouis Stokes [facility] Medical Centertart: 00-21-5965Hagkytci blood countHemoglobin/HematocritLouis Stokes [facility] Centertart: 67-53-8226Zrwneryrpx measurementSerum CreatinineLouis Stokes [facility] Centertart: 32-32-3004Phezzckk blood countHemoglobin/HematocritGodwin ClinicStart: 00-92-0924Sawuczvira measurementSerum CreatinineLouis Stokes [facility] Medical Centertart: 47-74-9394Oqaixyfrgh measurementSerum CreatinineLouis Stokes [facility] Centertart: 17-26-7161Rnnvmpfuyr measurementSerum CreatinineLouis Stokes [facility] Centertart: 72-00-9260Mzsrcrxfda measurementSerum CreatinineLouis Stokes [facility] Centertart: 44-54-6243Zohsnocmga measurementSerum CreatinineLouis Stokes [facility] Centertart: 86-54-1467Aslunfcosh measurementSerum CreatinineLouis Stokes [facility] Centertart: 22-46-5668Oogpyjoxfk measurementSerum CreatinineLouis Stokes [facility] Centertart: 60-11-6587Tpijekrh blood countHemoglobin/HematocritGodwin ClinicStart: 62-81-5057Jwlfzafltf measurementSerum CreatinineCleHolzer Medical Center – Jacksontart: 92-60-8348Tndnkcyp blood countHemoglobin/HematocritLouis Stokes [facility] Centertart: 27-50-9979Ckandsmwqz measurementSerum CreatinineLouis Stokes [facility] Centertart: 94-81-5856Zvcdgtqgze measurementSerum CreatinineLouis Stokes [facility] Centertart: 22-69-2910Urlbqiwccj measurementSerum CreatinineLouis [facility] Centertart: 51-39-9262Offmsjko blood countHemoglobin/HematocritLouis Stokes [facility] Centertart: 06-65-2720Mzcvxxrunf measurementSerum CreatinineLouis Stokes [facility] Centertart: 11-31-5936Cjykvoub blood countHemoglobin/HematocritLouis Stokes [facility] Centertart: 14-35-6519Usdzzzpqiy measurementSerum CreatinineLouis Stokes [facility] Centertart: 54-23-9870Oyuutkiy blood countHemoglobin/HematocritLouis Stokes [facility] Centertart: 54-95-9260Jimpkxcajx measurementSerum CreatinineLouis Stokes [facility] Centertart: 19-34-5999Tplispkrej measurementSerum CreatinineLouis Stokes [facility] Centertart: 28-42-0059Xuftewpyjc measurementSerum CreatinineLouis Stokes [facility] Centertart: 64-74-4614Hcezpuboqh measurementSerum CreatinineLouis Stokes [facility] Centertart: 54-88-1486Nujasmie blood countHemoglobin/HematocritLouis [facility] Centertart: 06-68-4785Ywjepldrxf measurementSerum [facility] Hospitaltart: 26-25-7565AK Controlled (<130/80)BP Controlled (<130/80)[facility]ertart: 71-20-6595OC Controlled (<130/80)BP Controlled (<130/80)[facility]t: 78-62-5669RM Controlled (<130/80)BP Controlled (<130/80)[facility]ertart: 47-39-3450OP Controlled (<130/80)BP Controlled (<130/80)[facility]ertart: 73-75-8718HC Controlled (<130/80)BP Controlled (<130/80)[facility]ertart: 69-69-5317AS Controlled (<130/80)BP Controlled (<130/80)[facility]ertart: 53-98-9793Tnsqbhsuj A Vaccine (2 of 2 - Risk 2-dose series)Hepatitis A Vaccine (2 of 2 - Risk 2-dose series)[facility] Centertart: 66-94-2848Mwgvpgpwb A Vaccines (2 of 2 - Risk 2-dose series)Hepatitis A Vaccines (2 of 2 - Risk 2-dose series)[facility] SpringsStart: 02-10-2025 End: 96-10-9885Djejwmr encounter zzquphfbf36/27/2025 11:00 AM EDT Appointment Gastroenterology [address] [address] Jane Correia MD [address] [place] [address] Schedule in about 3 months to remove biliary stent GastroenterologyComment on above:Schedule in about 3 months to remove biliary stentStart: 02-03-2025 End: 76-39-9030gxagmochhg27/20/2025 9:00 AM EDT [facility] [address] [place] [address] Devyn Roach MD [address] [place] [address] Vertigo [R42] NeurologyComment on above:Vertigo [R42]Start: 67-69-2309Qnglylmmi A Vaccine (3 of 3 - Hep A Twinrix risk 3-dose series)Hepatitis A Vaccine (3 of 3 - Hep A Twinrix risk 3-dose series)[facility]: 01-08-2025 End: 36-68-1384Cuqqpnv encounter rnrpsygsx99/24/2025 8:00 AM EDT Office Visit Gastroenterology [address] [place] [id number] [place] [address] [address] hospital discharge follow upGastroenterologyComment on above:hospital discharge follow upStart: 87-53-1179Tiwsd screening for proteinDiabetes: Urine Protein ScreeningNOWV HealthcareStart: 90-27-5449Uryckvzzu vaccinationInfluenza Vaccine (#1)[facility] HealthcareStart: 12-02-2024 End: 57-54-5007Lzqauh Only12/02/2024 Orders Only Transplant Center [address] [address] Carina Ziegler, RN [facility] [address] [place] [address] Disorder of liver; Liver replaced by transplant (HCC)Transplant CenterComment on above:Disorder of liver; Liver replaced by transplant (HCC)Start: 60-20-9310Slnnvbdmki hospital visit by pkzdenvko91/07/2025 5:40 PM EDT Hospital Encounter MRI Q [address] [address] Compression fracture of cervical spine, non- traumatic, with delayed healing, subsequent encounter [M48.52XG]MRI QComment on above:Compression fracture of cervical spine, non-traumatic, with delayed healing, subsequent encounter [M48.52XG]Start: 11-21-2024 End: 88-94-7859Jbfqehe encounter procedureTransplant CenterComment on above:OK PER MOLLYCompression fracture of cervical spine, non-traumatic, with delayed healing, subsequent encounter [M48.52XG]Start: 11-20-2024 End: 15-24-6854NP Cervical spine WO and W contrast IVMRI CERVICAL SPINE WO/W IVCON Radiology ADRIANNE Compression fracture of cervical spine, non-traumatic,with delayed healing, subsequent encounter Expected: 11/20/2024, Expires: 12/12/2025 [facility] Work Phone: Comment on above:Expected: 11/20/2024, Expires: 12/12/2025Start: 11-20-2024 End: 37-70-4195BV Lumbar spine WO and W contrast IVMRI LUMBAR SPINE WO/W IVCON Radiology Routine Compression fracture of cervical spine, non-traumatic, with delayed healing, subsequent encounter Expected: 11/20/2024, Expires: 12/12/2025 [facility] HospitalComment on above:Expected: 11/20/2024, Expires: 12/12/2025Start: 11-20-2024 End: 89-10-3896AH Thoracic spine WO and W contrast IVMRI THORACIC SPINE WO/W IVCON Radiology ADRIANNE Compression fracture of cervical spine, non-traumatic,with delayed healing, subsequent encounter Expected: 11/20/2024, Expires: 12/12/2025 [facility] HospitalComment on above:Expected: 11/20/2024, Expires: 12/12/2025Start: 25-58-0947EeygtOhioHealth Pickerington Methodist Hospitaltart: 11-19-2024 Bacteria identified in Urine by CultureUrine CultureMemorial Hospitaltart: 11-14-2024 End: 00-56-1037riiblrfphv36/31/2025 2:30 PM EDT [facility] Infectious Disease [address] [id number] Jennie Nicholson MD [address] [place] [address] VRE infected bile leakInfectious DiseaseComment on above:VRE infected bile leak Start: 11-14-2024 End: 32-63-1977Nhdwkvq encounter cybdiyecp59/31/2025 2:30 PM EDT Office Visit Infectious Disease [address] [id number] Jennie Nicholson MD [address] [place] [address] VRE infected bile leakInfectious DiseaseComment on above:VRE infected bile leakStart: 11-13-2024 End: 12-84-7504Peykpok encounter procedureGastroenterologyComment on above: 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, 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]Start: 10-31-2024 End: 86-74-4155Ldxkzwb OnlyCardiologyComment on above:Pleural effusion associated with hepatic disorder [K76.9, J91.8]Start: 43-63-1617Ynedjyimo A Vaccine (2 of 2 - Risk 2-dose series)Hepatitis A Vaccine (2 of 2 - Risk 2-dose series)[facility]ertart: 47-55-1984Enonw screening for proteinDiabetes: Urine Protein ScreeningSaint Mary's Hospital of Blue SpringsStart: 09-15-2024 End: 22-66-2466NO Cervical spine WO and W contrast IVMRI CERVICAL SPINE WO/W IVCON Radiology Routine Abnormal bone scan of thoracic spine Expected: 09/15, Expires: 09/21/2025[facility] Work Phone: Comment on above:Expected: 09/15/2024, Expires: 09/21/2025Start: 09-15-2024 End: 09-69-9287WF Lumbar spine WO and W contrast IVMRI LUMBAR SPINE WO/W IVCON Radiology Routine Abnormal bone scan of thoracic spine Expected: 09/15/2024, Expires: 09/21/2025leveland ClinicComment on above:Expected: 09/15/2024, Expires: 09/21/2025Start: 09-15-2024 End: 92-13-6900GK Thoracic spine WO and W contrast IVMRI THORACIC SPINE WO/W IVCON Radiology Routine Abnormal bone scan of thoracic spine Expected: 09/15, Expires: 09/21/2025leveland ClinicComment on above:Expected: 09/15/2024, Expires: 09/21/2025Start: 09-05-2024 End: 52-05-4107tykhjtsjug78/22/2025 8:30 AM EDT [facility] Gastroenterology [address] [address] Dmitri Garg MD [address] [place] [address] Post spine bx, closed txp eval as of nowGastroenterologyComment on above:Post spine bx, closed txp eval as of nowStart: 09-05-2024 End: 31-06-5817Ikoizm-up tjgnkxopq15/22/2025 8:30 AM EDT [facility] Gastroenterology [address] [address] Dmitri Garg MD [address] [place] [address] OLT txp eval /hospital follow upGastroenterologyComment on above:OLT txp eval /hospital follow upStart: 08-29-2024 End: 62-18-3767Fahftdo encounter fnfmlukab47/15/2025 11:00 AM EDT Office Visit Gastroenterology [address] [address] Dmitri Garg MD [address] [place] [address] f/u post closed txp eval and new mriGastroenterologyComment on above:f/u post closed txp eval and new mriStart: 08-27-2024 End: 36-07-9137Mglpjqh encounter exeoahksm19/13/2025 12:30 PM EDT Appointment Gastroenterology [address] [place] [phone] Dmitri Garg MD [address] [place] [address] EGD/EUS & COLONOSCOPYGastroenterologyComment on above:EGD/EUS & COLONOSCOPY Start: 08-19-2024 End: 36-03-9380Uiazmsbsomww/Creatinine panel in random UrineMicroalbumin / creatinine, urine ratio Lab Routine Type 2 diabetes mellitus with hyperglycemia, without long-term current use of insulin ([facility]) Expected: 08/19/2024 (Approximate), Expires: 08/19/2025[facility] Work Phone: Comment on above:Expected: 08/19/2024 (Approximate), Expires: 08/19/2025Start: 08-19-2024 End: 79-74-5846Vacgntctl colonoscopyCOLONOSCOPY SCREENING Endoscopy Routine Encounter for screening colonoscopy Expected: 08/19/2024, Expires: 08/12/2025 [facility] Work Phone: Comment on above:Expected: 08/19/2024, Expires: 08/12/2025Start: 08-19-2024 End: 32-55-4454Tibslyf encounter /05/2025 11:00 AM EDT Office Visit [facility] [address] [place] [id number] Xuan Espino PA [address] [place] [address] ArrivedNOMS CI FMComment on above:ArrivedStart: 08-15-2024 End: 76-46-6844NY Liver WO and W contrast IVMRI LIVER WO/W IVCON Radiology Routine Liver mass Expected: 08/15/2024, Expires: 06/17/2025[facility] Work Phone: Comment on above:Expected: 08/15/2024, Expires: 06/17/2025Start: 08-15-2024 End: 86-16-6523Xerfzet encounter zwjtjjutn60/01/2025 11:50 AM EDT Appointment MRI Q [address] [address] Liver mass [R16.0]MRI Q Comment on above:Liver mass [R16.0]Start: 08-14-2024 End: 93-77-8605UJW - THERAPEUTIC, EUS, OR TUBE INTERVENTIONSEGD - THERAPEUTIC, EUS, OR TUBE INTERVENTIONS Endoscopy Routine Cirrhosis of liver without ascites, unspecified hepatic cirrhosis type (HCC) Expected: 08/14/2024, Expires: 08/07/2025[facility] HospitalComment on above:Expected: 08/14/2024, Expires: 08/07/2025Start: 19-88-6249Ukvhlpeop for malignant neoplasm of colonLouis Stokes Cleveland VA Medical Centertart: 99-53-1833IahuhloawMemorial Hospitaltart: 07-30-2024 Ultrasonography guided puncture and aspiration of abdomenMemorial Hospitaltart: 44-09-2153Wdrawnanju A1c measurementDiabetes: Hemoglobin T4APWLKSaint Mary's Hospital of Blue SpringsStart: 07-25-2024 End: 82-48-7587Esnlyok encounter procedureGastroenterologyComment on above:f/u post closed txp eval and new mriMetastatic hepatocellular carcinoma to bone Start: 07-05-2024 End: 78-21-5609Kripjzv encounter /21/2025 6:30 PM EDT Appointment MRI Q [address] [address] Dx: Pathological fracture, other site, initial encounter for fracture [M84.48XA]MRI QComment on above:Dx: Pathological fracture, other site, initial encounter for fracture [M84.48XA] Start: 93-53-1375Znuivbcrxd hospital visit by / 6:30 PM EDT Hospital Encounter MRI Q [address] [address] P athological fracture, other site, initial encounter for fracture [M84.48XA]MRI Q Comment on above:Pathological fracture, other site, initial encounter for fracture [M84.48XA]Start: 07-05-2024 End: 07-76-7746Dxasdyexw to same day surgery nnswjf0107/05/2024 3:30 PM EDT - 07/05/2024 4:30 PM EDT Surgery Admitting [address] [address] Morales Gregg MD [address] [place] [address] THORACENTESIS NEEDLE OR CATHETER ASPIRATION OF THE PLEURAL SPACE W IMAGING GUIDANCEAdmittingComment on above:THORACENTESIS NEEDLE OR CATHETER ASPIRATION OF THE PLEURAL SPACE W IMAGING GUIDANCEStart: 07-05-2024 Subsequent hospital visit by nzqlmapht74/21/2025 3:30 PM EDT Hospital Encounter Admitting [address] [address] Morales Gregg MD [address] [place] [address] Pleural e ffusion [J90]AdmittingComment on above:Pleural effusion [J90]Start: 07-05-2024 End: 71-37-7973Nmwteclxtuyzh needle/cath pleura w/imagingTHORACENTESIS NEEDLE OR CATHETER ASPIRATION OF THE PLEURAL SPACE W IMAGING GUIDANCE Pleural effusion 07/05/2024 3:30 PM EDTMC PULM LAB U41Giftd: 07-05-2024 End: 05-37-8129Zhudexu encounter procedureGastroenterologyComment on above:Dx: Other ascites [R18.8]Start: 07-04-2024 End: 07-15-7018Jkgeowy encounter sepcizppk45/20/2025 9:00 AM EDT Appointment Gastroenterology [address] [address] Dx: Other ascites [R18.8]GastroenterologyComment on above:Dx: Other ascites [R18.8] Start: 63-26-8183DlfhxrpjmMemorial Hospitaltart: 06-19-2024 Ultrasonography guided puncture and aspiration of abdomenMemorial Hospitaltart: 06-08-2024 End: 76-37-6682Nqagmtt encounter procedureMRI QComment on above:Low back pain, unspecified back pain laterality, unspecified chronicity, unspecified whether sciatica present [M54.50]Start: 15-26-0631Iolqmmbldr hospital visit by physician 06/08/2024 1:00 PM EST Hospital Encounter MRI Q [address] [address] Low back pain, unspecified back pain laterality, unspecified chronicity, unspecified whether sciatica present [M54.50]MRI QComment on above: Low back pain, unspecified back pain laterality, unspecified chronicity, unspecified whether sciatica present [M54.50]Start: 06-04-2024 End: 36-35-8242Rgzfiqa encounter lauzwcdaq54/18/2025 11:15 AM EST Appointment Radiology [address] [place] [address] US [employer]; EVAL FOR RT INGUINAL HERNIARadiologyComment on above:[employer]; EVAL FOR RT INGUINAL HERNIAStart: 05-31-2024 End: 04-47-2631Bndqayqpn to same day surgery [facility] Cath LabComment on above:CORONARY ANGIO W CATH PLACE W IMAGE INJECT & INTERP W LT HEART CATH W INJECT LT VENTRGRAPHYStart: 05-31-2024 End: 04-81-8202Hboj plmt l hrt & arts w/njx & angio img s&iMC CATH LABStart: 33-10-0670Rjaqkcfnde hospital visit by physicianUN[facility] Cath LabComment on above:DIAGNOSTIC LHC ONLY (NO PLANS FOR PCI), Dx: Pleural effusion associated with hepatic disorder [K76.9, J91.8 (ICD-10-CM)]; Shortness of breath [R06.02 (ICD-10-CM)]; Lesion of liver greater than 1 cm in diameter [K76.9 (ICD-10-CM)]; Alcoholic cirrhosis of liver with ascites (HCC) [K70.31, (ICD-10-CM)]; Liver transplant candidate [Z76.82 (ICD-10-CM)]; Metabolic dysfunction-associated steatotic liverdisease (MASLD) [K76.0 (ICD-10-CM)], REF. YARELYY DR. ARAMBULAIStart: 05-31-2024 End: 12-27-8115Wfspfihvh to same day surgery rpzuzx0505/31/2024 12:45 PM EST - 05/31/2024 1:38 PM EST Surgery [facility] [employer] [address] [place] [address] Bhavya Aldana MD [address] [place] [address]ON[address] C[address] W IMAGE INJECT & INTERP W LT HEART CATH W INJECT LT VENTRGRAPHYHOSP Cath LabComment on above:CORONARY ANGIO W CATH PLACE W IMAGE INJECT & INTERP W LT HEART CATH W INJECT LT VENTRGRAPHYStart: 05-31-2024 End: 65-24-5783Nvol plmt l hrt & arts w/njx & angio img s&iCORONARY ANGIO W CATH PLACE W IMAGE INJECT & INTERP W LT HEART CATH W INJECT LT VENTRGRAPHY Pleural effusion 05/31/2024 12:45 PM [facility] CATH LABStart: 30-58-9516Hozgygyvdm hospital visit by cgprteizn18/14/2025 12:45 PM [facility] Hospital Encounter HOSP [employer] [address] [place] [address] Bhavya Aldana MD [address] [place] [address] DIAGNOSTIC LHC ONLY (NO PLANS FOR PCI), [...] [K76.0 (ICD-10-CM)], REF. GLORIA ARAMBULAIStart: 05-31-2024 End: 82-90-3359haorkavzgm21/14/2025 11:30 AM EST Procedure Cardiology [address] [place] [address] Bhavya Aldana MD [address] [place] [address] DIAGNOSTICLHC ONLY (NO PLANS FOR PCI)CardiologyComment on above:DIAGNOSTIC LHC ONLY (NO PLANS FOR PCI)Start: 05-31-2024 End: 19-70-9760Kjlbfti encounter procedureGastroenterologyComment on above:Other ascites [R18.8]Please send for cell count and total protein. Administer 25% albumin, 6 grams/L of ascitic fluid removed.Pleural effusion associated with hepatic disorder [K76.9, J91.8]RS// Pleural effusion associated with hepatic disorder [K76.9, J91.8]ADMITUnilateral inguinal hernia without obstruction or gangrene, recurrence not specified [K40.90]Start: 05-30-2024 End: 88-36-6339Qrttlpxgmhlbj needle/cath pleura w/imaging PULM LAB B37Jsdtb: 87-52-1807Ockgfcbli B Vaccine (2 of 2 - CpG risk 2-dose series)Hepatitis B Vaccine (2 of 2 - CpG risk 2-dose series)[facility]ertart: 90-89-3690Ukqez screening for proteinDiabetes: Urine Protein ScreeningOREM COMMUNITY [facility] HealthcareStart: 90-14-9246Vvrxtlje screeningDiabetes: Retinopathy ScreeningNOWV HealthcareStart: 05-23-2024 End: 09-50-6666Ypbdbex encounter procedureRadiologyComment on above:Pleural effusion associated with hepatic disorder [K76.9, J91.8]Start: 05-23-2024 End: 74-95-5170feyhgxdnye69/06/2025 10:15 AM EST Results Only [address] [place] [address] [address] [place], [place] [id number] Liver transplant candidate [Z76.82][place] [address] Draw StationComment on above:Liver transplant candidate [Z76.82]Start: 05-21-2024 End: 32-37-5771Lmaay metabolic 2000 panel - Serum or PlasmaBASIC METABOLIC PANEL Lab Routine Primary hypertension Expected: 05/21/2024, Expires: 08/20/2024 [facility] HospitalComment on above:Expected: 05/21/2024, Expires: 08/20/2024Start: 05-21-2024 End: 76-41-6291EAG panel - Blood by Automated countCOMPLETE BLOOD COUNT Lab Routine Primary hypertension Expected: 05/21/2024, Expires: 08/20/2024[facility] Work Phone: Comment on above:Expected: 05/21/2024, Expires: 08/20/2024Start: 05-21-2024 End: 23-56-8071FL panel - Platelet poor plasma by Coagulation assayPROTHROMBIN TIME Lab Routine Primary hypertension Expected: 05/21/2024, Expires: 08/20/2024 [facility] HospitalComment on above:Expected: 05/21/2024, Expires: 08/20/2024Start: 05-20-2024 End: 36-08-5171Yeedp-1-Fetoprotein [Mass/volume] in Serum or PlasmaALPHA FETOPROTEIN Lab STAT Liver transplant candidate Expected: 05/20/2024, Expires: 08/19/2024[facility] Work Phone: Comment on above:Expected: 05/20/2024, Expires: 08/19/2024Start: 05-16-2024 End: 84-55-3755Pyzkywv encounter procedureNOMS CI FMComment on above:Arrived Start: 05-14-2024 End: 35-56-8418JHM panel - Blood by Automated countCOMPLETE BLOOD COUNT Lab Routine Cirrhosis of liver without ascites, unspecified hepatic cirrhosis type (HCC) Expected: 05/14/2024, Expires: 08/13/2024[facility] Work Phone: Comment on above:Expected: 05/14/2024, Expires: 08/13/2024Start: 05-14-2024 End: 87-13-6614Sbprjgqblbowc metabolic 2000 panel - Serum or PlasmaCOMPREHENSIVE METABOLIC PANEL Lab Routine Cirrhosis of liver without ascites, unspecified hepatic cirrhosis type (HCC) Expected: 05/14/2024, Expires: 08/13/2024[facility] HospitalComment on above:Expected: 05/14/2024, Expires: 08/13/2024Start: 05-06-2024 End: 78-28-7323Umanttykizdpj metabolic 2000 panel - Serum or PlasmaCOMPREHENSIVE METABOLIC PANEL Lab Routine Liver transplant candidate Expected: 05/06/2024, Expires:08/05/2024[facility] Work Phone: Comment on above:Expected: 05/06/2024, Expires: 08/05/2024Start: 05-02-2024 End: 50-23-7957Uefml metabolic 2000 panel - Serum or PlasmaBASIC METABOLIC PANEL Lab Routine Pleural effusion associated with hepatic disorder Shortness of carter ath Lesion of liver greater than 1 cm in diameter Alcoholic cirrhosis of liver with ascites (HCC) Liver transplant candidate Metabolic dysfunction-associated steatotic liver disease (MASLD) Expected:05/02/2024, Expires: 08/01/2024 [facility] HospitalComment on above:Expected: 05/02/2024, Expires: 08/01/2024Start: 05-02-2024 End: 90-01-2178BXW panel - Blood by Automated countCOMPLETE BLOOD COUNT Lab Routine Pleural effusion associated with hepatic disorder Shortness of breath Lesion of liver greater than 1 cm in diameter Alcoholic cirrhosis of liver with ascites (HCC) Liver transplant candidate Metabolic dysfunction-associated steatotic liver disease (MASLD) Expected: 05/02/2024, Expires: 08/01/2024 [facility] Work Phone: Comment on above:Expected: 05/02/2024, Expires: 08/01/2024Start: 05-02-2024 End: 93-89-4162UT panel - Platelet poor plasma by Coagulation assayPROTHROMBIN TIME Lab Routine Pleural effusion associated with hepatic disorder Shortness of breath Lesion of liver greater than 1 cm in diameter Alcoholic cirrhosis of liver with ascites (HCC) Liver transplant candidate Metabolic dysfunction- associated steatotic liver disease (MASLD) Expected: 05/02/2024, Expires: 08/01/2024leveland ClinicComment on above:Expected: 05/02/2024, Expires: 08/01/2024Start: 05-02-2024 End: 44-06-5416Vlimshp encounter procedureCardiologyComment on above:Diagnosis: Pleural effusion associated with hepatic disorder [K76.9, J91.8]PRE LIVER TRANSPLANT EVALStart: 05-01-2024 End: 13-52-3325Mlqatqzee to same day surgery yxptqc2705/01/2024 12:30 PM EST - 05/01/2024 1:30 PM EST Surgery Admitting [address] [address] Nilay Villatoro MD [address] [place] [address] THORACENTESIS NEEDLE OR CATHETER ASPIRATION OF THE PLEURAL SPACE W IMAGING GUIDANCEAdmittingComment on above:THORACENTESIS NEEDLE OR CATHETER ASPIRATION OF THE PLEURAL SPACE W IMAGING GUIDANCEStart: 05-01-2024 Subsequent hospital visit by /15/2025 12:30 PM EST Hospital Encounter Admitting [address] [address] Nilay Villaotro MD [address] [place] [address] Pleural e ffusion [J90]AdmittingComment on above:Pleural effusion [J90]Start: 05-01-2024 End: 38-99-5844Geydfpthewkfk needle/cath pleura w/imaging PULM LAB L89Fuhcg: 05-01-2024 End: 76-05-9266Yozoyrn encounter procedureCardiologyComment on above:Lesion of liver greater than 1 cm in diameter [K76.9]LIVER TRANSPLANT EVALUATIONShortness of breath [R06.02]Start: 04-30-2024 End: 95-45-2149Dxdturb encounter procedureTransplant CenterComment on above: LIVER TRANSPLANT EVALUATIONStart: 04-29-2024 End: 50-06-6890Jvduyxq encounter procedureTransplant CenterComment on above: LIVER TRANSPLANT EVALUATIONPleural effusion associated with hepatic disorder; Shortness of breath; Lesion of liver greater than 1 cm in diameter; Encounter for screening for malignant neoplasm of prostate; Alcoholic cirrhosis of liver with ascites (HCC); Liver transplant candidate; Metabolic dysfunction-associated steatotic liver disease (MASLD)Start: 04-29-2024 End: 213015-mglmetupvuoemf D3 [Mass/volume] in Serum or PlasmaVITAMIN D 25 HYDROXY Lab Routine Lesion of liver greater than 1 cm in diameter Alcoholic cirrhosis of liver with ascites (HCC) Liver transplant candidate Metabolic dysfunction-associated steatotic liver disease (MASLD) Expected: 04/29/2024, Expires: 07/29/2024leveland ClinicComment on above:Expected: 04/29/2024, Expires: 07/29/2024Start: 04-29-2024 End: 30-00-3302THYNB 1 ANTITRYPSIN PHENOTYPEALPHA 1 ANTITRYPSIN PHENOTYPE Lab Routine Lesion of liver greater than 1 cm in diameter Alcoholic cirrhosis of liver with ascites (HCC) Liver transplant candidate Metabolic dysfunction- associated steatotic liver disease (MASLD) Expected: 04/29/2024, Expires: 07/29/2024leveland ClinicComment on above:Expected: 04/29/2024, Expires: 07/29/2024Start: 04-29-2024 End: 48-08-0140Tqxev tocopherol [Mass/volume] in Serum or PlasmaVITAMIN E/TOCOPHEROL Lab Routine Lesion of liver greater than 1 cm in diameter Alcoholic cirrhosis of liver with ascites (HCC) Liver transplant candidate Metabolic dysfunction-associated steatotic liver disease (MASLD) Expected: 04/29/2024, Expires: 07/29/2024leveland ClinicComment on above:Expected: 04/29/2024, Expires: 07/29/2024Start: 04-29-2024 End: 24-29-3046Xrkrw-1-Fetoprotein [Mass/volume] in Serum or PlasmaALPHA FETOPROTEIN Lab Routine Lesion of liver greater than 1 cm in diameter Alcoholic cirrhosis of liver with ascites (HCC) Liver transplant candidate Metabolic dysfunction-associated steatotic liverdisease (MASLD) Expected: 04/29/2024, Expires: 07/29/2024leveland ClinicComment on above:Expected: 04/29/2024, Expires: 07/29/2024Start: 04-29-2024 End: 43-82-0023eAZL in Platelet poor plasma by Coagulation assayACTIVATED PARTIAL THROMBOPLASTIN TIME Lab Routine Lesion of liver greater than 1 cm in diameter Alcoholic cirrhosis of liver with ascites (HCC) Liver transplant candidate Metabolic dysfunction-associated steatotic liver disease (MASLD) Expected: 04/29/2024, Expires: 07/29/2024leveland ClinicComment on above: Expected: 04/29/2024, Expires: 07/29/2024Start: 04-29-2024 End: 40-30-4302Qlnqg metabolic 2000 panel - Serum or PlasmaBASIC METABOLIC PANEL Lab Routine Lesion of liver greater than 1 cm in diameter Alcoholic cirrhosisof liver with ascites (HCC) Liver transplant candidate Metabolic dysfunction- associated steatotic liver disease (MASLD) Expected: 04/29/2024, Expires: 07/29/2024leveland ClinicComment on above:Expected: 04/29/2024, Expires: 07/29/2024Start: 04-29-2024 End: 12-87-7540URDFO TB SCREENBLOOD TB SCREEN Lab Routine Lesion [...] on above:Expected: 04/29/2024, Expires: 07/29/2024Start: 04-29-2024 End: 53-32-3070Cwcdzk Ag 19-9 [Units/volume] in Serum or PlasmaCA 19-9 Lab Routine Lesion of liver greater than 1 cm in diameter Alcoholic cirrhosis of liver withascites (HCC) Liver transplant candidate Metabolic dysfunction- associated steatotic liver disease (MASLD) Expected: 04/29/2024, Expires: 07/29/2024leveland ClinicComment on above:Expected: 04/29/2024, Expires: 07/29/2024Start: 04-29-2024 End: 47-07-2702CRH W Auto Differential panel - BloodCOMPLETE BLOOD COUNT AND DIFFERENTIAL Lab Routine Lesion of liver greater than 1 cm in diameter Alcoholic cirrhosis of liver with ascites (HCC) Liver transplant candidate Metabolic dysfunction-associated steatotic liver disease (MASLD) Expected: 04/29/2024, Expires: 07/29/2024leveland ClinicComment on above:Expected: 04/29/2024, Expires: 07/29/2024Start: 04-29-2024 End: 08-60-1070Xxhrlbr hepatitis differentiation between hepatitis B and C virus panel - Serum or PlasmaHEP REMOTE PANEL BL Lab Routine Lesion of liver greater than 1 cm in diameter Alcoholic cirrhosis of liver with ascites (HCC) Liver transplant candidate Metabolic dysfunction-associated steatotic liver disease (MASLD) Expected: 04/29/2024, Expires: 07/29/2024leveland ClinicComment on above:Expected: 04/29/2024, Expires: 07/29/2024Start: 04-29-2024 End: 99-55-2135LFTVOAXBYX BLDCREATININE BLD Lab Routine Lesion of liver greater than 1 cm in diameter Alcoholic cirrhosis of liver with ascites (HCC) Liver transplant candidate Metabolic dysfunction-associated steatotic liver disease (MASLD) Expected: 04/29/2024, Expires: 07/29/2024leveland ClinicComment on above:Expected: 04/29/2024, Expires: 07/29/2024Start: 04-29-2024 End: 70-93-5049NI Chest WO contrastCT CHEST WO IVCON Radiology Routine Pleural effusion associated with hepatic disorder Shortness of breath Lesion of liver greater than 1 cm in diameter Alcoholic cirrhosis of liver with ascites (HCC) Liver transplant candidate Metabolic dysfunction-associated steatotic liver disease (MASLD) Expected: 04/29/2024, Expires: 05/23/2025[facility] ClinicComment on above:Expected: 04/29/2024, Expires: 05/23/2025Start: 04-29-2024 End: 11-39-5873ZV Liver W contrast IVCT LIVER W IVCON Radiology Routine Lesion of liver greater than 1 cm in diameter Alcoholic cirrhosis of liver with ascites (HCC) Liver transplant candidate Metabolic dysfunction-associated steatotic l iver disease (MASLD) Expected: 04/29/2024, Expires: [facility]/20[facility] Comment on above:Expected: 04/29/2024, Expires: 05/23/2025Start: 04-29-2024 End: 02-96-3292Pcuewsezerxbent IgG Ab [Units/volume] in Serum or PlasmaCMV IGG ANTIBODY BL Lab Routine Lesion of liver greater than 1 cm in diameter Alcoholic cirrhosis of liver with ascites (HCC) Liver transplant candidate Metabolic dysfunction-associated steatotic liver disease (MASLD) Expected: 04/29/2024, Expires: 07/29/2024[facility] ClinicComment on above:Expected: 04/29/2024, Expires: 07/29/2024Start: 04-29-2024 End: 45-21-3589JZT COMPLETEECG COMPLETE ECG Routine Lesion of liver greater than 1 cm in diameter Alcoholic cirrhosis of liverwith ascites (HCC) Liver transplant candidate Metabolic dysfunction-associated steatotic liver disease (MASLD) Expected: 04/29/2024, Expires: 04/23/2025[facility] ClinicComment on above:Expected: 04/29/2024, Expires: 04/23/2025Start: 04-29-2024 End: 99-40-2070CnoibunmdtdkzfwqXHFU Cardiology Routine Lesion of liver greater than 1 cm in diameter Alcoholic cirrhosis of liver with ascites (HCC) Liver transplant candidate Metabolic dysfunction-associated steatotic liver disease (MASLD) Expected: 04/29/2024, Expires: 04/23/2025[facility] ClinicComment on above:Expected: 04/29/2024, Expires: 04/23/2025Start: 04-29-2024 End: 45-56-0255Iaticif Pearson virus capsid IgG Ab [Units/volume] in SerumEPSTEIN- PEARSON VCA IGG Lab Routine Lesion of liver greater than 1 cm in diameter Alcoholic cirrhosis of liver with ascites (HCC) Liver transplant candidate Metabolic dysfunction-associated steatotic liver disease (MASLD) Expected: 04/29/2024, Expires: 07/29/2024[facility] ClinicComment on above:Expected: 04/29/2024, Expires: 07/29/2024Start: 04-29-2024 End: 96-21-0394Jazoqkae [Mass/volume] in Serum or PlasmaFERRITIN Lab Routine Lesion of liver greater than 1 cm in diameter Alcoholic cirrhosis of liver with ascites (HCC) Liver transplant candidate Metabolic dysfunction-associated steatotic liver disease (MASLD) Expected: 04/29/2024, Expires: 07/29/2024 [facility] HospitalComment on above:Expected: 04/29/2024, Expires: 07/29/2024Start: 04-29-2024 End: 00-54-1807Mydmzulcdw A1c in BloodHEMOGLOBIN A1C Lab Routine Lesion of liver greater than 1 cm in diameter Type 2 diabetes mellitus without complication, without long-term current use of insulin (HCC) Alcoholic cirrhosis of liver with ascites (HCC) Liver transplant candidate Metabolic dysfunction-associated steatotic liver disease (MASLD) Expected: 04/29/2024, Expires: 07/29/2024 [facility] HospitalComment on above:Expected: 04/29/2024, Expires: 07/29/2024Start: 04-29-2024 End: 14-05-2853Ryjmjbe function 2000 panel - Serum or PlasmaHEPATIC FUNCTION PNL Lab Routine Lesion of liver greater than 1 cm in diameter Alcoholic cirrhosis o f liver with ascites (HCC) Liver transplant candidate Metabolic dysfunction- associated steatotic liver disease (MASLD) Expected: 04/29/2024, Expires: 07/29/2024[facility] ClinicComment on above:Expected: 04/29/2024, Expires: 07/29/2024Start: 04-29-2024 End: 86-53-4642DUYYGQRPP A ANTIBODY, IGGHEPATITIS A ANTIBODY, IGG Lab Routine Lesion of liver greater than 1 cm in diameter Alcoholic cirrhosis of liver with ascites (HCC) Liver transplant candidate Metabolic dysfunction-associated steatotic liver disease (MASLD) Expected: 04/29/2024, Expires: 07/29/2024 [facility] HospitalComment on above:Expected: 04/29/2024, Expires: 07/29/2024Start: 04-29-2024 End: 78-07-4081QXB 1+2 Ab [Presence] in Serum or Plasma by ImmunoassayHIV 1/2 COMBO WITH REFLEX TO DIFFERENTIATION Lab Routine Lesion of liver greater than 1 cm in diameter Alcoholic cirrhosis of liver with ascites (HCC) Liver transplant candidate Metabolic dysfunction-associated steatotic liver disease (MASLD) Expected: 04/29/2024, Expires: 07/29/2024[facility] ClinicComment on above: Expected: 04/29/2024, Expires: 07/29/2024Start: 04-29-2024 End: 97-47-9101Xycc and Iron binding capacity panel - Serum or PlasmaIRON AND TIBC Lab Routine Lesion of liver greater than 1 cm in diameter Alcoholic cirrhosis of liver with ascites (HCC) Liver transplant candidate Metabolic dysfunction-associated steatotic liver disease (MASLD) Expected: 04/29/2024, Expires: 07/29/2024[facility] ClinicComment on above:Expected: 04/29/2024, Expires: 07/29/2024Start: 04-29-2024 End: 75-39-8703Iosjt 1996 panel - Serum or PlasmaLIPID PANEL BASIC Lab Routine Lesion of liver greater than 1 cm in diameter Alcoholic cirrhosis of liver with ascites (HCC) Liver transplant candidate Metabolic dysfunction-associated steatotic liverdisease (MASLD) Expected: 04/29/2024, Expires: 07/29/2024 [facility] HospitalComment on above:Expected: 04/29/2024, Expires: 07/29/2024Start: 04-29-2024 End: 75-99-7540Uqzotfakosw a [Mass/volume] in Serum or PlasmaLIPOPROTEIN (A) Lab Routine Lesion of liver greater than 1 cm in diameter Alcoholic cirrhosis of liver with ascites (HCC) Liver transplant candidate Metabolic dysfunction- associated steatotic liver disease (MASLD) Expected: 04/29/2024, Expires: 07/29/2024[facility] ClinicComment on above:Expected: 04/29/2024, Expires: 07/29/2024Start: 04-29-2024 End: 59-98-4032IBFAO REC INIT W/ULIVER REC INIT W/U ALLOGEN Routine Lesion of liver greater than 1 cm in diameter Alcoholic cirrhosis of liver with ascites (HCC) Liver transplant candidate Metabolic dysfunction-associated steatotic l iver disease (MASLD) Expected: 04/29/2024, Expires: 04/23/2025[facility] Comment on above:Expected: 04/29/2024, Expires: 04/23/2025Start: 04-29-2024 End: 20-11-1195Enraeaofuim peptide.B prohormone N-Terminal [Mass/volume] in Serum or PlasmaNT PRO BNP Lab Routine Lesion of liver greater than 1 cm in diameter Alcoholic cirrhosis of liver with ascites (HCC) Liver transplant candidate Metabolic dysfunction-associated steatotic liver disease (MASLD) Expected: 04/29/2024, Expires: 07/29/2024[facility] ClinicComment on above: Expected: 04/29/2024, Expires: 07/29/2024Start: 04-29-2024 End: 43-92-4318AIVLODIDALKVCHKKHEM (PETH)PHOSPHATIDYLETHANOL (PETH) Lab Routine Lesion of liver greater than 1 cm in diameter Alcoholic cirrhosis of liver with ascites (HCC) Liver transplant candidate Metabolic dysfunction-associated steatotic liver disease (MASLD) Expected: 04/29/2024, Expires: 07/29/2024 [facility] HospitalComment on above:Expected: 04/29/2024, Expires: 07/29/2024Start: 04-29-2024 End: 30-68-9920ARM/PROSTATE SPECIFIC ANTIGEN SCREENINGPSA/PROSTATE SPECIFIC ANTIGEN SCREENING Lab Routine Lesion of liver greater than 1 cm in diameter En counter for screening for malignant neoplasm of prostate Alcoholic cirrhosis of liver with ascites (HCC) Liver transplant candidate Metabolic dysfunction- associated steatotic liver disease (MASLD) Expected: 04/29/2024, Expires: 07/29/2024[facility] ClinicComment on above:Expected: 04/29/2024, Expires: 07/29/2024Start: 04-29-2024 End: 94-86-0880WP panel - Platelet poor plasma by Coagulation assayPROTHROMBIN TIME Lab Routine Lesion of liver greater than 1 cm in diameter Alcoholic cirrhosis of liver with ascites (HCC) Liver transplant candidate Metabolic dysfunction-associated steatotic liver disease (MASLD) Expected: 04/29/2024, Expires: 07/29/2024[facility] Work Phone: Comment on above:Expected: 04/29/2024, Expires: 07/29/2024Start: 04-29-2024 End: 69-15-1959Xgqkymv [Mass/volume] in Serum or PlasmaVITAMIN A/RETINOL Lab Routine Lesion of liver greater than 1 cm in diameter Alcoholic cirrhosis of l iver with ascites (HCC) Liver transplant candidate Metabolic dysfunction- associated steatotic liverdisease (MASLD) Expected: 04/29/2024, Expires: 07/29/2024[facility] ClinicComment on above:Expected: 04/29/2024, Expires: 07/29/2024Start: 04-29-2024 End: 75-14-7267OMCKISF (MEASLES)IGGRUBEOLA (MEASLES)IGG Lab Routine Lesion of liver greater than 1 cm in diameter Alcoholic cirrhosis of liver with ascites (HCC) Liver transplant candidate Metabolic dysfunction-associated steatotic chuyita er disease (MASLD) Expected: 04/29/2024, Expires: 07/29/2024[facility] Comment on above:Expected: 04/29/2024, Expires: 07/29/2024Start: 04-29-2024 End: 10-97-6955LYCAJANMUV BASELINE ONLYGodwin ClinicComment on above: Expected: 04/29/2024, Expires: 05/23/2025Start: 04-29-2024 End: 10-25-5470LEHHCZXM TREPONEMAL W/REFLEXSYPHILIS TREPONEMAL W/REFLEX Lab Routine Lesion of liver greater than 1 cm in diameter Alcoholic cirrhosis of liver with ascites (HCC) Liver transplant candidate Metabolic dysfunction- associated steatotic liver disease (MASLD) Expected: 04/29/2024, Expires: 07/29/2024[facility] ClinicComment on above:Expected: 04/29/2024, Expires: 07/29/2024Start: 04-29-2024 End: 22-11-9945Ehyswpqefzq [Units/volume] in Serum or PlasmaTHYROID STIMULATING HORMONE Lab Routine Lesion of liver greater than 1 cm in diameter Alcoholic cirr hosis of liver with ascites (HCC) Liver transplant candidate Metabolic dysfunction-associated steatotic liver disease (MASLD) Expected: 04/29/2024, Expires: 07/29/2024[facility] ClinicComment on above:Expected: 04/29/2024, Expires: 07/29/2024Start: 04-29-2024 End: 48-13-3734ZXZFPBSRAU PANEL BLDTOXICOLOGY PANEL BLD Lab Routine Lesion of liver greater than 1 cm in diameter Alcoholic cirrhosis of liver with ascites (HCC) Liver transplant candidate Metabolic dysfunction-associated steatotic chuyita er disease (MASLD) Expected: 04/29/2024, Expires: 07/29/2024[facility] Comment on above:Expected: 04/29/2024, Expires: 07/29/2024Start: 04-29-2024 End: 98-64-8862KNTFNRKQFF SCREEN, ROUTINE URINETOXICOLOGY SCREEN, ROUTINE URINE Lab Routine Lesion of liver greater than 1 cm in diameter Alcoholic cirrhosis of liver with ascites (HCC) Liver transplant candidate Metabolic dysfunction- associated steatotic liver disease (MASLD) Expected: 04/29/2024, Expires: 07/29/2024[facility] ClinicComment on above:Expected: 04/29/2024, Expires: 07/29/2024Start: 04-29-2024 End: 43-39-8221DYXWIQRUUC CONFIRM ABO/RHTRANSPLANT CONFIRM ABO/RH Blood Bank Routine Lesion of liver greater than 1 cm in diameter Alcoholic cirrhosis of liver with ascites (HCC) Liver transplant candidate Metabolic dysfunction- associated steatotic liver disease (MASLD) Expected: 04/29/2024, Expires: 07/29/2024[facility] ClinicComment on above:Expected: 04/29/2024, Expires: 07/29/2024Start: 04-29-2024 End: 28-86-6142ANVX + SCREENTYPE + SCREEN Blood Bank Routine Lesion of liver greater than 1 cm in diameter Alcoholic cirrhosis of liver with ascites (HCC) Liver transplant candidate Metabolic dysfunction-associated steatotic liver disease (MASLD) Expected: 04/29/2024, Expires: 07/29/2024[facility] ClinicComment on above:Expected: 04/29/2024, Expires: 07/29/2024Start: 04-29-2024 End: 46-47-9047YPJPJZCNW ZOSTER IGGVARICELLA ZOSTER IGG Lab Routine Lesion of liver greater than 1 cm in diameter Alcoholic cirrhosis of liver with ascites (HCC) Liver transplant candidate Metabolic dysfunction-associated steatotic chuyita er disease (MASLD) Expected: 04/29/2024, Expires: 07/29/2024[facility] Comment on above:Expected: 04/29/2024, Expires: 07/29/2024Start: 04-29-2024 End: 94-34-4429Ifvjgbevo vvgnjhj9704/29/2024 11:00 AM EST [facility] [address] [place] [address] SaraIvelisse Cabrera, RD [address] [id number] LIVER TRANSPLANT EVALUATIONNutrition TherapyComment on above: LIVER TRANSPLANT EVALUATIONStart: 04-29-2024 End: 49-90-2355srpjsufxmpGthkeebilmEziwust on above:LIVER TRANSPLANT EVALUATION TRANSPLANT LIVER EVALStart: 04-29-2024 End: 58-45-4442Xbsvdmh encounter procedureMain [place] A15 Draw StationComment on above:LIVER TRANSPLANT EVALUATIONStart: 04-25-2024 End: 24-55-1174qfnyefszyz23/09/2025 10:00 AM EST [facility] [address] [place] [address] Coordinator, Liver Txp [address] [place] [address] LIVER T RANSPLANT EVALUATIONTransplant CenterComment on above:LIVER TRANSPLANT EVALUATIONStart: 56-45-1235Huusisb Directive DiscussionAdvance Directive DiscussionLouis Stokes [facility] VA Medical Centertart: 01-01-2025Medicare Advantage Annual Wellness VisitMediAsc[facility] Annual Wellness VisitLouis Stokes [facility] Medical Centertart: 02-22-2024 End: 93-08-5033Bkikioo encounter dfsesbmrn26/07/2024 9:00 AM EST Procedure Visit [facility] Ira Walker, DO [address] [place] [address] [facility] EXT DEPStart: 02-15-2024 Hemoglobin A1c measurementDiabetes: Hemoglobin F6QSUQA HealthcareStart: 02-08-2024 End: 68-82-0908Ltiwjuo encounter oprjmkclv85/24/2024 8:15 AM EDT Procedure Visit [facility] Ira Walker, DO [address] [place] [address] [facility] EXT DEPStart: 01-18-2024 End: 52-88-4732Bqvqyde encounter htytuoueo04/03/2024 1:30 PM EDT Office Visit [facility] [address] [place] [phone] Ira Walker, DO [address] [place] [address] ArrivedNOWV NB OPHTComment on above:ArrivedStart: 30-46-9667Xsgas-19 Vaccine ( season)Covid-19 Vaccine ( season)[facility]art: 11-73-6849Wmedj-19 Vaccine ( season) Covid-19 Vaccine ( season)[facility]: 62-98-2728Ypfsuovpo vaccinationInfluenza Vaccine (#1)[facility] HealthcareStart: 12-13-2023 End: 21-36-7885XG Heart TransthoracicTransthoracic Echo (TTE) Complete Echocardiography Routine Cirrhosis of liver with ascites, unspecified hepatic cirrhosis type (CMS/HCC) Dizziness QUESADA (dyspnea on exertion) Other ascites Expected: 12/13/2023 (Approximate), Expires: 12/12/2025[facility] Work Phone: Comment on above:Expected: 12/13/2023 (Approximate), Expires: 12/12/2025Start: 12-13-2023 End: 92-09-8868Ilcctgs encounter waubjclzy73/28/2024 1:30 PM EDT Office Visit [facility] ARACELY [address] [place] [address] Xuan Espino PA [address] [place] [address] [facility] CI FMStart: 10-47-9904Koidxyomqr A1c measurement Diabetes: Hemoglobin D5XOOSU HealthcareStart: 00-09-7959PywlngakgMemorial Hospitaltart: 60-46-0947GwvoawafdMemorial Hospitaltart: 06-13-2023 End: 43-29-7638Cbvbfzt encounter pfsqaflwf80/27/2024 1:30 PM EST Procedure Visit [facility] Brayan Alves H, DO [address] [address] [facility] EXT DEPStart: 06-09-2023 End: 79-26-1588Ddxtime encounter blrcpbyxi76/23/2024 10:30 AM EST Office Visit [facility] [address] [facility] [address] [place] [id number] Brayan Alves H, DO [address] [facility] [address] [place] [address] GENSStart: 02-09-2024Medicare Annual Wellness (AWV)Medicare Annual Wellness (AWV)[facility] SpringsStart: 85-71-1875HroomoxalMemorial Hospitaltart: 28-03-4364Iaqonxr Directive DiscussionAdvance Directive DiscussionLouis Stokes [facility] Medical Centertart: 92-60-0198Stqsipckmq A1c measurement Diabetes: Hemoglobin U9RAGCP HealthcareStart: 48-60-8163FdqggnxlkMemorial Hospitaltart: 99-92-9253Dodzuikxhn elastography of liverDH Fibroscan (Not Applicable)Memorial Hospitaltart: 41-17-7348Ekzwbvetic elastography of liverDH Fibroscan (Not Applicable)Memorial Hospitaltart: 11-97-7909EjdfjvhguMemorial Hospitaltart: 09-21-2022 Hepatitis B core antibody measurementMemorial Hospitaltart: 09-21-2022 End: 87-97-2812VxpmysklpMemorial Hospitaltart: 85-71-5827Qofpnzzd Vaccine (2 of 2)Shingrix Vaccine (2 of 2)[facility]art: 06-25-2022 Shingrix Vaccine (3 of 3)Shingrix Vaccine (3 of 3)[facility] Centertart: 29-18-2370EOuX/Tdap/Td Vaccines (2 - Td or Tdap)DTaP/Tdap/Td Vaccines (2 - Td or Tdap)[facility] SpringsStart: 10-64-4768Nefvh-19 Vaccine (3 - Moderna risk series) Covid-19 Vaccine (3 - Moderna risk series)[facility] Centertart: 08-13-2019 Screening for malignant neoplasm of colonLouis Stokes [facility] VA Medical Centertart: 2018 Pneumococcal Vaccine: 65+ (1 of 1 - PCV)Pneumococcal Vaccine: 65+ (1 of 1 - PCV) [facility]art: 92-69-4028Dptkqaefcwfx Vaccine: 65+ Years (1 of 1 - PCV) Pneumococcal Vaccine: 65+ Years (1 of 1 - PCV)[facility] SpringsStart: 2013 Hepatitis B Vaccine (1 of 3 - Risk 3-dose series)Hepatitis B Vaccine (1 of 3 - Risk 3-dose series)[facility]: 76-73-3034OSM Vaccine (1 - Risk 60-74 years 1-dose series)RSV Vaccine (1 - Risk 60-74 years 1-dose series)[facility]art: 17-32-8043Giijwqkslnvs Vaccine: 50+ (1 of 1 - PCV)Pneumococcal Vaccine: 50+ (1 of 1 - PCV)[facility] Centertart: 15-21-0571Nqqhcyyer for malignant neoplasm of colonLouis Stokes [facility] Medical Centertart: 21-61-8591Brlyskjyy A Vaccine (1 of 2 - Risk 2-dose series)Hepatitis A Vaccine (1 of 2 - Risk 2-dose series) [facility]art: 91-31-5964Miohc screening for proteinDiabetes: Urine Protein ScreeningSaint Mary's Hospital of Blue SpringsStart: 45-80-2361Dwskzl PCP Team Chronic Disease VisitAnnual PCP Team Chronic Disease VisitLouis Stokes [facility] VA Medical Centertart: 08-03-1971 Anxiety ScreeningAnxiety ScreeningLouis Stokes [facility] Medical Centertart: 15-33-8662BQ Controlled (<130/80)BP Controlled (<130/80)[facility]ertart: 08-88-3392Hrjuaqaumi ScreeningDepression ScreeningLouis Stokes [facility] Medical Centertart: 25-27-5939Cicumtdxfwwu Vaccine: 65+ Years (1 - PCV)Pneumococcal Vaccine: 65+ Years (1 - PCV)[facility] SpringsStart: 32-10-1949Spfblusmymrc Vaccine: 65+ Years (1 of 2 - PCV) Pneumococcal Vaccine: 65+ Years (1 of 2 - PCV)[facility] SpringsStart: 1953 Abdominal aortic aneurysm screeningAbdominal Aortic Aneurysm ScreeningLouis Stokes Cleveland VA Medical Centertart: 04-18-1954Medicare Annual Wellness (AWV)Medicare Annual Wellness (AWV)[facility] SpringsStart: 72-33-3889Lcvccxufx for malignant neoplasm of colon [facility] smooth muscle IgG Ab [Units/volume] in SerumProtestant Deaconess HospitalAlpha 1 antitrypsin [Mass/volume] in Serum or Plasma [facility] Deaconess HospitalAlpha 1 antitrypsin phenotyping [Identifier] in Serum or Plasma by ImmunofixationProtestant Deaconess Hospital End: 28-65-7982Kxbhz-1-Fetoprotein [Mass/volume] in Serum or PlasmaALPHA FETOPROTEIN Lab [...] of breath Livertransplant candidate 05/01/2024 10:43 AM [facility] identified in Unspecified specimen by Anaerobe cultureChildren'S Hospital For Rehabilitation Work Phone: comment on above:Release Upon Ordering for 1 Occurrences starting 5BLOOD CULTURE 1BLOOD CULTURE 1 Lab Routine 11/21/2024 1:47 PM EDTNOWV HealthcareBODY FLUID CULTURE, STERILEBODY FLUID CULTURE, STERILE Lab Routine 12/08/2023 7:30 AM EDTNOWV HealthcareCBC W Auto Differential panel - BloodCBC and differential Lab Routine Other acute postprocedural pain Ordered: 08/19/2024NONevada Regional Medical CenterComment on above:Ordered: 08/19/2024efuroxime free [Mass/volume] in Serum or [facility] HospitalCeruloplasmin [Mass/volume] in Serum or [facility] End: 23-74-1134Trgronbawrjcm metabolic 1999 panel - Serum or PlasmaCOMPREHENSIVE METABOLIC PANEL Lab Routine Liver transplant candidate Once per week for 5 Occurrences starting 06/03/2024 until 06/03/2025[facility] Work Phone: Comment on above:Once per week for 5 Occurrences starting 06/03/2024 until 06/03/2025 End: 38-81-9796Mxudheikuewig metabolic 2000 panel - Serum or PlasmaCOMPREHENSIVE METABOLIC PANEL Lab Routine Other ascites Once per week for 12 Occurrences starting 07/02/2024 until 07/02/2025[facility] Work Phone: Compcnk on above:Once per week for 12 Occurrences starting 07/02/2024 until 07/02/2025 End: 62-19-2220Hmmbpdmijlukb metabolic 2000 panel - Serum or PlasmaCOMPREHENSIVE METABOLIC PANEL Lab Routine Cirrhosis of liver without ascites, unspecified hepatic cirrhosis type (HCC) Once per week for 12 Occurrences starting 07/25/2024 until 07/25/2025[facility] Work Phone: Comment on above:Once per week for 12 Occurrences starting 07/25/2024 until 07/25/2025 End: 33-82-9595TR Chest W contrast IVCAshtabula County Medical Center Work Phone: Comment on above:ONCE for 1 Occurrences starting 04/29/2024 until 04/29/2024YTOLOGY NON-[facility] NorthComment on above: Release Upon Ordering for 1 Occurrences starting 05/01/2024, 1 completed End: 35-14-2355JPK COMPLETEECG COMPLETE ECG Routine Pleural effusion associated with hepatic disorder Shortness of breath Lesion of liver greater than 1 cm in diameter Alcoholic cirrhosis of liver with ascites (HCC) Liver transplant candidate Metabolic dysfunction-associated steatotic liver disease (MASLD) 1 Occurrences starting 05/02/2024 until 05/02/2025[facility] HospitalComment on above:1 Occurrences starting 05/02/2024 until 05/02/2025ECG COMPLETEECG COMPLETE ECG 09/29/2024 5:07 PM EDTCAshtabula County Medical Center End: 35-47-4886ENTLTAXD Endoscopy Routine Bile duct stricture (HCC) 1 Occurrences starting 11/13/2024 until 11/13/2025[facility] Work Phone: Comment on above:1 Occurrences starting 11/13/2024 until 11/13/2025 End: 14-97-0182Vbjkuzcg for paracentesis and insertion of tube of Peritoneum ABDOM PARACENTESIS DX/THER W IMAGING GUIDANCE Endoscopy Routine Shortness of breath Liver transplant candidate 1 Occurrences starting 04/29/2024 until 04/29/2025[facility] HospitalComment on above:1 Occurrences starting 04/29/2024 until 04/29/2025 End: 28-39-5179Fgupnhsw for paracentesis and insertion of tube of Peritoneum ABDOM PARACENTESIS DX/THER W IMAGING GUIDANCE Endoscopy Routine Other ascites 1 Occurrences starting 05/24/[address] [place] [address] Work Phone: Comment on above:1 Occurrences starting 05/24/2024 until 05/24/2025 End: 32-03-7639Ndimfstk for paracentesis and insertion of tube of Peritoneum ABDOM PARACENTESIS DX/THER W IMAGING GUIDANCE Endoscopy Routine Other ascites Every other week for 12 Occurrences starting 06/11/2024 until 06/11/2025 [facility] Work Phone: Comment on above:Every other week for 12 Occurrences starting 06/11/2024 until 06/11/2025Guidance for percutaneous biopsy of Bone [facility] Work Phone: Comment on above:Ordered: 07/25/2024Guidance for thoracentesis of ChestIMAGING GUIDED THORACENTESIS Radiology Routine Pleural effusion associated with hepatic disorder Ordered: 5CAs[facility] Work Phone: Comment on above:Ordered: 04/29/2024Hepatitis B virus surface Ab [Presence] in SerumProtestant Deaconess HospitalHelakewood regional medical center B virus surface Ag [Presence] in Serum or Plasma by ImmunoassayProtestant Deaconess HospitalHelakewood regional medical center C virus IgG Ab [Presence] in Serum or Plasma by ImmunoassayProtestant Deaconess Hospital End: 14-76-7413UDZQ DIFFUSION CAPACITY (DLCO)LUNG DIFFUSION CAPACITY (DLCO) PFT Routine Pleural effusion associated with hepatic disorder 1 Occurrences starting 05/23/2024 until 06/22/2025[facility] HospitalComment on above:1 Occurrences starting 05/23/2024 until 06/22/2025LUNG DIFFUSION CAPACITY (DLCO)LUNG DIFFUSION CAPACITY (DLCO) PFT Routine Pleural effusion associated with hepatic disorder 05/31/2024 7:57 AM [facility] Work Phone: MANUAL DIFFERENTIAL, BODY FLUIDMANUAL DIFFERENTIAL, BODY FLUID Lab Routine Shortness of breath Liver transplant candidate 05/01/2024 10:[address] [facility] ClinicMANUAL DIFFERENTIAL, BODY FLUIDMANUAL DIFFERENTIAL, BODY FLUID Lab Routine Other ascites 05/31/2024 9:30 AM [facility] Work Phone: Mitochondria M2 IgG Ab [Units/volume] in Serum [facility] End: 12-37-0695UB Cervical spine WO and W contrast IVMRI CERVICAL SPINE WO/W IVCON Radiology Routine Low back pain, unspecified back pain laterality, uns pecified chronicity, unspecified whether sciatica present 1 Occurrences starting 05/18/2024 until 06/17/2025[facility] ClinicComment on above:1 Occurrences starting 05/18/2024 until 06/17/2025 End: 23-25-1783IM Lumbar spine WO and W contrast IVMRI LUMBAR SPINE WO/W IVCON Radiology Routine Low back pain, unspecified back pain laterality, unspecified chronicity, unspecified whether sciatica present 1 Occurrences starting 05/18/2024 until 06/17/2025[facility] ClinicComment on above:1 Occurrences starting 05/18/2024 until 06/17/2025 End: 62-44-0110LI Thoracic spine WO and W contrast IVMRI THORACIC SPINE WO/W IVCON Radiology Routine Low back pain, unspecified back pain laterality, uns pecified chronicity, unspecified whether sciatica present 1 Occurrences starting 05/18/2024 until 06/17/2025[facility] ClinicComment on above:1 Occurrences starting 05/18/2024 until 06/17/2025 End: 01-55-9012TS Thoracic spine WO contrastMRI THORACIC SPINE WO IVCON Radiology Routine Pathological fracture, other site, initial encounter for fracture 1 Occurrences starting 06/10/2024 until 07/10/2025[facility] Work Phone: Comment on above:1 Occurrences starting 06/10/2024 until 07/10/2025MR Thoracic spine WO contrastMRI THORACIC SPINE WO IVCON Radiology Routine Pathological fracture, other site, initial encounter for fracture [facility]24 [facility] EducationUniversity [facility] Work Phone: [facility]Barber[facility] Work Phone: End: 94-75-2965TM panel - Platelet poor plasma by Coagulation assayPROTHROMBIN TIME Lab Routine Cirrhosis of liver without ascites, unspecified hepatic cirrhosis type(HCC) Once per month for 12 Occurrences starting 05/14/2024 until 05/14/2025[place] ClinicComment on above:Once per month for 12 Occurrences starting 05/14/2024 until 05/14/2025SPIROMETRY WITH DILATOR IF OBSTRUCTED SPIROMETRY WITH DILATOR IF OBSTRUCTED PFT Routine Dyspnea, unspecified type 05/23/2024 10:31 AM [facility] Work Phone: End: 14-47-1505XWLWCHJIRB WITH DILATOR IF OBSTRUCTEDSPIROMETRY WITH DILATOR IF OBSTRUCTED PFT Routine Pleural effusion associated with hepatic disorder1 Occurrences starting 05/23/2024 until 06/22/2025[facility] Work Phone: Comment on above:1 Occurrences starting 05/23/2024 until 06/22/2025SPIROMETRY WITH DILATOR IF OBSTRUCTEDSPIROMETRY WITH DILATOR IF OBSTRUCTED PFT Routine Pleural effusion associated with hepatic disorder 05/31/2024 7:57 AM [facility] Work Phone: [facility] Lab Routine 11/19/2024 2:45 PM [facility] End: 88-31-0058UN Pelvis limitedUS PELVIS LTD Radiology Routine Unilateral inguinal hernia without obstruction or gangrene, recurrence not specified 1 Occurrences starting 05/30/2024 until 06/29/2025[facility] Work Phone: Comment on above:1 Occurrences starting 05/30/2024 until 06/29/2025 End: 89-43-6666DZ THORACENTESIS (POC) H23 USE ONLYUS THORACENTESIS (POC) H23 USE ONLY Imaging Procedures Routine ONCE for 1 Occurrences starting 05/30/2024 until [facility] Work Phone: comment on above:ONCE for 1 Occurrences starting 05/30/2024 until 05/30/2024 Immunizations Immunization DateImmunizationNotesCare OrossbntSwvpxglk20-44-9850etfftxzyy A vaccine, adult dosageVenus Aden DMD Work Phone: [facility] HospitalWjjovf94-43-0151Lxzvjxoxi B vaccine (recombinant), CpG adjuvantedVenus Aden DMD Work Phone: [facility] HospitalGqkphe09-66-7155bclaseqvg A and hepatitis B vaccineGeneric ProviderSaint Mary's Hospital of Blue SpringsIbzkmspkmh00-97-5595Yenjmnmxt B vaccine (recombinant), CpG adjuvantDavid MALDONADO Work Phone: [facility] SpringsFvslxhvsat34-48-6830ADO, recombinant, protein subunit RSVpreF, adjuvant reconstitu, 120mcg/0.5mL, PF (Arexvy)Xuan MALDONADO Work Phone: NON[facility] CenterClgghderal84-65-8046mtspbjsge A vaccine, adult dosageJade Arora MD Work Phone: [facility] HospitalRemebm40-30-9695Ddqhvqcqc B vaccine (recombinant), CpG adjuvantedJade Arora MD Work Phone: [facility] HospitalBsolsm32-60-2995gtjhixtyv, high dose seasonal, preservative-freeTransplant PharmacistTrihealth Bethes[facility] Hospital11-18-2024 pneumococcal conjugate (PCV20) vaccine, 20 valent (PREVNAR 20)Transplant PharmacistTrihealth Bethesda Butler HospitalBkhwaw05-53-3098vjyeekrwaijc conjugate vaccine, 7 valent Generic ProviderSaint Mary's Hospital of Blue SpringsRllvqxgopu86-54-9040ppjlyjuqt virus vaccine, unspecified formulationGeneric ProviderSaint Mary's Hospital of Blue SpringsCkdsrcwwat19-25-5860yhmfdtsnx virus vaccine, unspecified formulationPaYour Tribute [facility] [place] 807320-10-2023Influenza, Seasonal, Quadrivalent, AdjuvantedGeneric Provider [facility] SpringsEfnjerifzq01-87-0804cobboa vaccine recombinantFredric Itzkowitz DO Work Phone: [facility] SpringsEzkczvdeix09-43-2767tlwrukl toxoid, reduced diphtheria toxoid, and acellular pertussis vaccine, adsorbedFredric Itzkowitz DO Work Phone: [facility] SpringsUblxevplff00-75-9622rzalxhjia virus vaccine, unspecified formulationVerical [facility] [place] 807320-18-2022influenza, high dose seasonal, preservative-freeFredric Itzkowitz DO Work Phone: [facility] SpringsRkpnlrmzmp33-45-4714soremnqtr virus vaccine, unspecified formulationPatrick ARRIAZA [facility] [place] 807321-03-2021influenza, high dose seasonal, preservative-freeFredric Itzkowitz DO Work Phone: [facility] SpringsZcysoloynt44-10-7324ngyymrxre, injectable, quadrivalent, contains preservativeShelli Boo APRN.SWIMMING COACH OR INSTRUCTOR Work Phone: [facility] HospitalJewhuu74-53-8161sikxjdtrj, injectable, quadrivalent, preservative freeAmy Vick [facility]10-30-2017 influenza virus vaccine, unspecified formulationPaYour Tribute [facility] [place] 807320-30-2017influenza, injectable, quadrivalent, contains preservative Brayan Itzkowitz DO Work Phone: [facility] SpringsQnfoqwgrlk90-97-8167gfepzvaza, injectable, quadrivalent, contains preservativeAmy Vick [facility]10-17-2016 influenza virus vaccine, unspecified formulationPaYour Tribute [facility] Hospitaly10-17-2016influenza, seasonal, injectableFredric Itzkowitz DO Work Phone: [facility] SpringsAqhqimmvhp61-10-0455pqmslw vaccine, liveFredric Itzkowitz DO Work Phone: [facility] SpringsZrlecrqpqf37-74-2584nmytnuxbn virus vaccine, unspecified formulationPaYour Tribute [facility] Hospitaly10-27-2015influenza, seasonal, injectableFredric Itzkowitz DO Work Phone: [facility] SpringsAzenswdhpa82-23-4148rfljwwwle virus vaccine, unspecified formulationPaYour Tribute [facility] Hospitaly09-30-2014influenza, seasonal, injectableFredric Itzkowitz DO Work Phone: [facility] SpringsPgnbqsybri77-10-7097fhfkddjov virus vaccine, unspecified formulationFredric Itzkowitz DO Work Phone: [facility] Payers DatePayer CategoryPayerPolicy [id number] or OtherSELECT MEDICAL [id number] Medicare (Managed Care)[employer] MEDICARE Member Subscriber Plan / Payer (Effective 2024-Present) Name: Loyd Blandon Relation to Subscriber: Self Name: Loyd Blandon Payer ID: [id number] (NAIC) Type: PPO Address: [address] [place] [id number] MEDICARE ADVANTAGE [id number] 2022Medicare [id number] Health Insurance [id number] 2.16.840.1.918539.3.57[id number] 2.16.840.1.987787.3.57[id number] 2..840.1.281976.3.57[id number] 2..840.1.860165.3.57[id number] 2.16.840.1.226155.3.57[id number] 2.16.840.1.699050.3.57[id number] 2.16.840.1.433801.3.57[id number] 2.16.840.1.122480.3.57[id number] 2.16.840.1.625258.3.57[id number] 2.16.840.1.905878.3.57[id number] 2.16.840.1.016258.3.57[id number] 2.16.840.1.899598.3.579.2.1259Unknown 1.2.840.414863.1.13.159.2.7.[id number] 2.16.840.1.5[id number] 2.16.840.1.692825.3.579.2.531 [id number] 2.16.840.1.7[id number] 2.16.840.1.75[id number] 2.16.840.1.143794.3.579.2.531 [id number] 2.16.840.1.432345.3.579.2.367Acwuwic4A28AS6FV30 Social History DateTypeDetailFacilityStart: 09-21-2022 End: 74-12-7639Gvzzcqa smoking status NHISEx-smoker (finding)[facility] Hospitaltart: 91-48-6777Oen [facility] At [facility]ertart: 05-18-2023 End: 60-29-7982Nup [facility]igned At [facility]: 02-18-1971 End: 15-37-4025Dnpdytl of tobacco useCurrent smokerNOMS HealthcareStart: 02-18-1971 End: 90-44-4103Plagdtq of tobacco useCigarette SmokerNOMS HealthcareStart: 11-17-2022 End: 63-37-8265Srtcagm use and exposureSmokeless tobacco non-userNOMS Healthcare Start: 05-18-2023 End: 69-40-0047Scbbuxa of Social functionNOMS HealthcareStart: 88-90-4470Uui Assigned At BirthNot on fileNOMS HealthcareTobacco smoking statusNo Smoking Status EnteredExecutive [facility] Start: 12-13-2023 End: 74-83-4084Tnjnotzlp beverage intakeCurrent drinker of alcohol (finding)[facility] HealthcareStart: 03-18-2012 End: 47-78-8509Eng often do you need to have someone help you when you read instructions, pamphlets, or other written material from your doctor or pharmacy [SILS]RarelyNOMS HealthcareDo you belong to any clubs or organizations such as spiritism groups, unions, fraternal or athletic groups, or [...] before (I/we) got money to buy more.Never trueNOWV HealthcareStart: 97-15-3843Yrnfmvf Comment2-3 times per week, 1-2 drinks at a timeOREM COMMUNITY [facility]OSPITAL HealthcareStart: 44-26-3722Rdcxln identityIdentifies as male gender (finding)[facility] HealthcareStart: 27-39-5788Cmgxwgq Comment1-2 drinks nightlyCmount carmel health system ClinicStart: 35-51-9886Uclvxv orientationHeterosexual (finding) [facility] Centertart: 05-01-2024 End: 04-96-2369Gzaraasxl beverage intakeEx-drinker (finding)[facility] Start: 06-19-2024 End: 61-77-1944KawImrh (finding)[facility] HospitalHow often do you need to have someone help you when you read instructions, pamphlets, or other written material from your doctor or pharmacy [SILS]RarelyOREM COMMUNITY [facility] Healthcare Start: 36-95-1207Eqtzhsi CommentRecovering alcoholicTrihealth Bethesda [facility] Hospital Medical Equipment Procedure CodeEquipment CodeEquipment Original TextEquipment IdentifierDatesMesh Srg Parietex 15cm [facility] - [id number]: 45-26-0961Handuap on above:Description: parietex composite meshStent Odon Viabil 10mm Metal 100mm 200cm Endoprosthesis No Hole Full Cover - [id number]: 10-15-2024 Comment on above:Description: Static magnetic field of 1.5 and 3.0 Rosita Maximum spatial gradient of 3,000 Gauss/cm Maximum MR system reported, whole body averaged specific absorption rate (MARTA) of 4 W/kgGraft Infuse 20ga Medium Bovine Collagen Rhbmp-2 2x1in Bone Vial Absorbable - [id number]: 12-31-5766Iwyrp Bone Sub 10cc Dbm Putty Inert Reverse Phase Carrier Osteosparx - [id number]: 03-96-9051Quele Bone 30cc 1mm-4mm Range Granules Cancellous Crushed - [id number]_sweUsevu: 81-57-1666Hhajs Erica 3 Titanium Set Connie Spine - [id number]_wxiOqmdc: 91-89-6681Fhw Erica 3 6mm 480mm Spinal - [id number]_vzkGyzwz: 29-23-4230Luwbx Erica 3 Gamez 6.5mm 50mm Bone Polyaxial Nonsterile Spine - [id number]: 08-99-8379Ogtkj Erica 3 Gamez 7.5mm 50mm Bone Polyaxial Nonsterile Spine - [id number]_rpt Start: 18-83-2033Gfmbz Erica 3 Gamez 8.5mm 50mm Bone Polyaxial Nonsterile Spine [id number]_impStart: 54-86-3175Twuel Erica 3 Gamez 9.5mm 50mm Bone Polyaxial Nonsterile [id number]_vvoOqokc: 84-04-1783Ajtok 10fr Duodenal Bend Plastic 12cm Biliary Temporary Rapid Exchange - [id number]_weaVwqlc: 12-19-2024 Goals DatePatient GoalDesired Activity/StatePersonal health goalPersonal health goal Functional Status KdqmWnxhojeyjsOcuvvxHeghrvct24-55-7505Omzftpb Health Questionnaire 2 item (PHQ- 2) [Reported][facility] SpringsAavjrpsney61-24-0831Gnp you deaf, or do you have serious difficulty hearingNo 05/31/2024 4:27 PM Cecil Peña RN [facility] HospitalZrqirb96-67-6709Zyp you blind, or do you have serious difficulty seeing, even when wearing glassesNo 05/31/2024 4:27 PM Cecil Peña RN NoCMercy Health West HospitalZmohke64-60-5125Mi you have serious difficulty walking or climbing stairsNo 05/31/2024 4:27 PM Cecil Peña RN NoCMercy Health West HospitalVmvfgm45-16-4305An you have difficulty dressing or bathingNo 05/31/2024 4:27 PM Cecil Peña RN NoCMercy Health West HospitalYyjmld04-54-3822Arctbme of a physical, mental, or emotional condition, do you have difficulty doing errands alone such as visiting a physician's office or shoppingNo 05/31/2024 4:27 PM Cecil Peña RN [facility] HospitalDjmizo90-06-9979Awcyroh Health Questionnaire 2 item (PHQ-2) [Reported] [facility] Blue SpringsJmetcefesf76-69-1784Bacxssd falling or staying asleep, or sleeping too much Not at all 05/15/2024 2:34 PM EST Mychart, Generic Not at allSaint Mary's Hospital of [facility] 49-77-6605Cscdbrg tired or having little energySeveral days 05/15/2024 2:34 PM EST Mychart, Generic Several [facility] CenterZdzldcshuy94-45-2435Pudd appetite or overeatingSeveral days 05/15/2024 2:34 PM EST Mychart, Generic Several [facility] CenterLbdbcumfky49-02-7048Tialyjf bad about yourself-or that you are a failure or have let yourself or your family downNot at all 05/15/2024 2:34 PM EST Mychart, Generic Not at allSaint Mary's Hospital of Blue SpringsUerdlpevhw35-29-1233Ovuoeih concentrating on things, such as reading the newspaper or watching televisionSeveral days 05/15/2024 2:34 PM EST Mychart, Generic Several [facility] CenterBeqtyhqlpb39-14-5413Mhnrkf or speaking so slowly that other people could have noticed. Or the opposite - being so fidgety or restless that you have been moving around a lot more than usualNearly every day 05/15/2024 2:34 PM EST Mychart, Generic Nearly every daySaint Mary's Hospital of [facility] Springs 92-16-5109Vrnepbpx that you would be better off , or of hurting yourself in some wayNot at all 05/15/2024 2:34 PM EST Mychart, Generic Not at allSaint Mary's Hospital of Blue SpringsGonnzlkttd29-20-1741Gebqk score [AUDIT-C]0 12/12/2023 1:46 PM EDT Mychart, GenericSaint Mary's Hospital of Blue SpringsXpowyqpndt42-58-8754Wyr often do you have a drink containing alcohol?Never 12/12/2023 1:46 PM EDT [facility]cv[facility] centert, Generic [facility] 78-97-3818Syqqauvjlz statusPatient does not drink 12/12/2023 1:46 PM EDT Mychar, Generic Patient does not drinkSaint Mary's Hospital of Blue SpringsOfovylpcbg09-92-9049Ydq often do you have 6 or more drinks on 1 occasion?Never 12/12/2023 1:46 PM EDT Mychart, Generic [facility] LouisKeyogbucxp43-97-6743Vaq you deaf, or do you have serious difficulty hearingNo 08/28/2014 2:34 PM Bebe Gutierrez MA [facility]05-14-2015Are you blind, or do you have serious difficulty seeing, even when wearing glassesNo 08/28/2014 2:34 PM Bebe Gutierrez MA [facility]05-14-2015Do you have serious difficulty walking or climbing stairsNo 08/28/2014 2:34 PM Bebe Gutierrez MA [facility]05-14-2015Do you have difficulty dressing or bathingNo 08/28/2014 2:34 PM Be[facility] HospitalTlyxcf37-93-2155Pnirixa of a physical, mental, or emotional condition, do you have difficulty doing errands alone such as visiting a physician's office or shoppingNo 08/28/2014 2:34 PM Bebe Gutierrez MA [facility] Mental Status BrniLpkpkckpjwBzwfumFskdknpd01-98-6034Jshjxjc of a physical, mental, or emotional condition, do you have serious difficulty concentrating, remembering, or making decisionsNo 05/31/2024 4:27 PM Cecil Peña RN [facility] HospitalBpjrpb78-23-0683Fxkzknv of a physical, mental, or emotional condition, do you have serious difficulty concentrating, remembering, or making decisionsNo 08/28/2014 2:34 PM Bebe Gutierrez MA [facility] Clinical Notes 09-21-2022 to 02-18-2025 Note Date & HevxJhanLcwzuagq35-99-2780 NoteW[facility]10-29-2025 NoteW[facility]and[facility]10-27-2025 NoteW[facility] 01-28-2025 NoteW[facility]and[facility] Hospital10-10-2025 NoteHNO ID: [id number] Author: EFREN TILLEY RT(R) Service: Radiology Author [...] PATIENT PRESENTS WITH AN IMPLANTABLE OR ATTACHED MANUFACTURING COST ESTIMATOR: No RADIOLOGY DEPARTMENT: CT; Exam(s) Completed: Spine . Anesthesia: No PERIPHERAL IV DATA: Not applicable SIGNED BY: RT Eliana(R) January 24, 2025 2:08 [facility] HospitalUpibynjl41-42-8600 [facility] 01-13-2025 NoteW[facility]andot [facility] Hospital09-28-2025 NoteW[facility] Hospital09-27-2025 NoteW[facility] Hospital09-26-2025 NoteW[facility]and[facility] Hospital09-26-2025 NoteW[facility] Hospital09-26-2025 Note [facility]09-25-2025 NoteW[facility] Hospital09-24-2025 NoteW[facility] Hospital09-24-2025 NoteW[facility] 01-07-2025 NoteW[facility]and[facility] Hospital09-23-2025 NoteW[facility] Hospital09-23-2025 NoteW[facility] Hospital09-23-2025 NoteW[facility] Hospital09-22-2025 NoteW[facility]and[facility] Hospital09-21-2025 Note [facility]09-20-2025 NoteW[facility]and[facility] Hospital09-20-2025 NoteW[facility]and[facility] Hospital09-20-2025 NoteHNO ID: [id number] Author: KEI NUNEZ, RN Service: Nursing Author Type: Registered Nurse Type: Progress Notes Filed: 01/04/2025 04:55 Note Text: senior quality technician stated to hold tube feed at 6am.[facility]09-19-2025 NoteWyandot [facility] Hospital08-06-2025 Telephone encounter Note* Telephone Encounter - Carina Ziegler RN - 11/20/2024 10:19 AM EDT I spoke with Dr No, r/w him recent admit for this L superior/inferior pubic ramus fracture and plan for pt to be admitted for rehab. D/w him preference now to have him go back to [place] rehab(he will d/w the care coord/SW team and I sent Dr Cruz and our LINDA Lakisha Boo, a text regarding this plan). I also r/w him the labs that we would need until he is sent to rehab for continuationof care. 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 D/w him preference now to have him go back to [place] [facility](he will d/w the care [facility]/SW team and I sent Dr Cruz and our LINDA Lakisha Boo, a text regarding this plan). I also r/w him the labs that we would need until he is sent to rehab for continuationof care. Carina Ziegler RN (Molly), BSN, [facility] Liver Employment Law Attorney * Telephone Encounter - Lee Ann Redmond - 11/19/2024 4:[address] No called to provide an update on the patient. I confirmed with him whether it was an emergency, and he stated it was NOT. He can be reached at the number below at any time Requesting a return call from the ambulatory care coordinator. Please call him at [phone] .. Lee Ann Redmond documented in this encounterTrihealth Bethesda [facility] Hospital08-05-2025 Telephone encounter Note * Telephone Encounter - Lee Ann Redmond - 11/19/2024 4:[address] No called to provide an update on the patient. I confirmed with him whether it was an emergency, and he stated it was NOT. He can be reached at the number below at any time Requesting a return call from the ambulatory care coordinator. Please call him at [phone] .. Lee Ann Redmond [facility]08-05-2025 Telephone encounter Note* Telephone Encounter - [...] me posted CarinaFahad) Benedict Ziegler RN, BSN, [facility] Liver Employment Law Attorney [facility]08-05-2025 Miscellaneous Notes* Telephone Encounter - Carina [...] me posted CarinaFahad) Benedict Ziegler RN, BSN, [facility] Liver Employment Law Attorney * Telephone Encounter - Cinthia Bishop - 11/18/2024 11:25 AM EDT Fabiana called in stating that she is returning Tara's call. Fabiana is requesting a call back at [phone]. documented in this encounterTrihealth Bethesda Butler Hospital08-04-2025 Telephone encounter Note * Telephone Encounter - Cinthia Bishop - 11/18/2024 11:25 AM EDT Fabiana called in stating that she is returning Tara's call. Fabiana is requesting a call back at [phone]. [facility] Work Phone: [phone] 182-5794741417-30-9588 Telephone encounter Note* Telephone Encounter - Carina Ziegler RN - 11/18/2024 10:48 AM EDT Called and l/m for pt's to call back with [facility] Carina Ziegler RN (Molly), BSN, [facility] Liver Employment Law Attorney [facility]08-04-2025 Miscellaneous Notes* Telephone Encounter - Carina Ziegler RN - 11/18/2024 10:48 AM EDT Called and l/m for pt's to call back with updates [facility] Carina Ziegler RN (Molly), BSN, [facility] Liver Employment Law Attorney documented in this encounterTrihealth Bethesda Butler Hospital08-01-2025 History of Present illness Narrative* Mercedez Tobar RPh - 11/15/2024 2:28 PM EDT [facility] OPAT Documentation Note Per orders of Dr. Nicholson honor daptomycin stop date of 11/12. Okay to remove PICC. Per chart review,patient completed daptomycin as planned on 11/12 at [facility], and was discharged from the facility today. Total Time Spent on this Encounter (in minutes): < 5 Mercedez Tobar RPh 11/15/2024 2:28 PM documented in this encounterTrihealth Bethesda Butler Hospital07-31-2025 History of Present illness Narrative* Jennie [...] EBV +/+) who I saw at [facility] during his admission from 10/07 to [...] 4. F/u with ID as needed The ambulatory care coordinator is CCed to this note I personally monitored antibiotics requiring intensive drug monitoring for therapeutic and adverse effects for toxicity. I spent a total of 37 minutes on the date of the service which included preparing to see the patient, cxxg-um-igrb patient care, completing clinical documentation, obtaining and/or reviewing separately obtained history, performing a medically appropriate examination, and counseling and educating the patient/family/caregiver. Jennie Nicholson M.D. Staff, Infectious Disease [facility] Thank you for allowing us to contribute to this patient's care. Please call with questions. Case findings/test results and suggestions discussed with the requesting physician via the shared electronic medical record documented in this encounterTrihealth Bethesda [facility] Hospital07-30-2025 Nurse Note* Kassie Pimentel RN - 11/13/2024 5:42 PM EDT [facility] transport picked up pt to transport back to [facility]. [facility]07-30-2025 Nurse Note* Kassie Pimentel RN - 11/13/2024 5:42 PM EDT [facility] transport picked up pt to transport back to [facility]. * Kassie Pimentel RN - 11/13/2024 3:54 PM EDT Report called to [facility]. Per Benny Alatorre, lemon picker approximately 90 mins from 15:40 pm. * [...] RN In Department: GASTROENTEROLOGY documented in this encounterTrihealth Bethesda [facility] Hospital07-30-2025 Nurse Note* Kassie Pimentel RN - 11/13/2024 3:54 PM EDT Report called to [facility]. Per Benny Alatorre, lemon picker approximately 90 mins from 15:40 pm. [facility]07-30-2025 Nurse Note* Kassie Pimentel RN - [...] None Electronically Signed By: Kassie Pimentel RN [facility]07-30-2025 NoteQ3 Patient Name: Loyd Blandon Procedure Date: 11/13/2024 1:11 PM Date of : 1955 Admit Type: Outpatient Age: 69 Gender: Male Note Status: Finalized Attending MD: Jane Correia MD, [id number] Procedure: ERCP Indications: Common bile duct stone(s), [...] administered by the anesthesia team. Findings: A logger driving horses film of the abdomen was obtained. Surgical [...] 3 months. Procedure Code(s): --- Professional --- 85450, Endoscopic retrograde cholangiopancreatography (ERCP); with removal of calculi/debris from biliary/pancreatic duct(s) 13767, Endoscopic catheterization of the biliary ductal syste (more content not included)...[id number] NoteQ3 Patient Name: Loyd Blandon Procedure Date: 11/13/2024 1:11 PM Date of : 1955 Admit Type: Outpatient Age: 69 Gender: Male Note Status: Finalized Attending MD: Jane Correia MD, [id number] Procedure: ERCP Indications: Common bile duct stone(s), [...] administered by the anesthesia team. Findings: A logger driving horses film of the abdomen was obtained. Surgical [...] 3 months. Procedure Code(s): --- Professional --- 75816, Endoscopic retrograde cholangiopancreatography (ERCP); with removal of calculi/debris from biliary/pancreatic duct(s) 85332, Endoscopic catheterization of the biliary ductal syste (more content not included)...[id number] Nurse Note* Jose Juan Schuster RN - [...] Jose Juan Schuster RN In Department: GASTROENTEROLOGY [facility]07-30-2025 History and physical note* Bebo Barker [...] 13, 2024 TIME: 2:26 PM Created 2023 [facility] Work Phone: 1(308) 249-550307-30-2025 History and physical note* Bebo Barker MD [...] 2:26 PM Created 2023 documented in this encounterTrihealth Bethesda [facility] Hospital07-29-2025 Telephone encounter Note * Telephone Encounter [...] electronically send to pharmacy. Carina Ziegler RN [facility]07-29-2025 Miscellaneous Notes* Telephone Encounter - Carina [...] pharmacy. Carina Ziegler RN documented in this encounterTrihealth Bethesda Butler Hospital07-29-2025 Telephone encounter Note * Telephone Encounter - Ceci Valencia RN - 11/12/2024 1:19 PM EDT RN health care facility administrator placed return call to [facility] per request. Spoke with Lisa who [...] was ended. MELISSA Webster, RN Specialty Nurse Steward/Stewardess Room Digestive Disease [facility]07-29-2025 Miscellaneous Notes* Telephone Encounter - Ceci Valencia RN - 11/12/2024 1:19 PM EDT RN health care facility administrator placed return call to [facility] per request. Spoke with Lisa who [...] was ended. MELISSA Webster, RN Specialty Nurse Steward/Stewardess Room Digestive Disease documented in this encounterTrihealth Bethesda Butler Hospital07-25-2025 Progress note* Result Encounter Note - Carina Ziegler RN - 11/08/2024 1:29 PM EDT Reviewed liver transplant results and followed by [place] staff-tacro level better. They are followingscr Carina Ziegler RN (Molly), BSN, [facility] Liver Employment Law Attorney [facility]07-25-2025 Miscellaneous Notes* Result Encounter Note - Carina Ziegler RN - 11/08/2024 1:29 PM EDT Reviewed liver transplant results and followed by [place] staff-tacro level better. They are followingscr Carina Ziegler (Molly) RN, BSN, [facility] Liver Employment Law Attorney * Result Encounter Note - Eva Dhillon RN - 10/31/2024 2:29 PM EDT Standing labs reviewed, c/w recent lab values. CRP slightly improved. BNP per [place]. No changes to current POC at this time. MELISSA Vásquez, RN, [facility] Liver Employment Law Attorney documented in this encounterTrihealth Bethesda Butler Hospital07-24-2025 History of Present illness Narrative* Say Maldonado RPh - 11/07/2024 10:42 AM EDT [facility] OPAT Documentation Note OPAT Pharmacist Lab [...] on this Encounter (in minutes): < 5 aSy Maldonado RPh 11/07/2024 10:42 AM documented in this encounterTrihealth Bethesda Butler Hospital07-17-2025 Progress note* Result Encounter Note - Eva Dhillon RN - 10/31/2024 2:29 PM EDT Standing labs reviewed, c/w recent lab values. CRP slightly improved. BNP per [place]. No changes to current POC at this time. MELISSA Vásquez, RN, [facility] Liver Employment Law Attorney [facility]07-17-2025 History of Present illness Narrative* Say Maldonado [facility] - 10/31/2024 12:14 PM EDT Infectious Diseases Outpatient Parenteral Antimicrobial Therapy Pharmacist Review Patient, Lyod Blandon ([id number]), was reviewed by an OPAT pharmacist and [...] any questions, please contact Mercedez Tobar at [phone] or Jeanne Maldonado (ChungYun) at [phone]. Say Maldonado RPh 10/31/2024 12:15 PM * Say Maldonado RPh - 10/31/2024 12:14 PM EDT [facility] OPAT Documentation Note Home Health Agency Name: [facility] Phone #: [phone] Vascular Access: PICC Say Maldonado RPh 10/31/2024 12:18 PM documented in this encounterTrihealth Bethesda [facility] Hospital07-09-2025 History of Present illness Narrative* Jennie Nicholson MD - 10/23/2024 11:26 AM EDT [facility] Outpatient Parenteral Antimicrobial Therapy (OPAT) Start Form Patient Info Patient MRN Patient Name Address Date of [id number] Loyd Blandon [facility] Caron Villanueva [facility] [id number] 1955 Start Date 10/23/2024 Physician Group Cc_main [...] Monitoring Treatment Course Jennie Nicholson MD Address [address] [place] [address] Prescribing Provider's signature - electronically signed by Jennie Nicholson MD on 10/23/24 at 11:28AM documented in this encounterTrihealth Bethesda [facility] Hospital06-23-2025 History and physical note * Carina Ziegler RN - 10/07/2024 4:10 PM EDT Was called by Dr Dias at [facility] and she spoke with LINDA Kathy Ryan CNP about pt c/o slurred speech, sob, fluid overload and plan for pt to be admitted back to for further evaluation and w/u. Carina Ziegler RN (Molly), BSN, [facility] Liver Employment Law Attorney [facility]06-23-2025 History and physical note* Carina Ziegler RN - 10/07/2024 4:10 PM EDT Was called by Dr Dias at [facility] and she spoke with LINDA Ktahy Ryan CNP about pt c/o slurred speech, sob, fluid overload and plan for pt to be admitted back to for further evaluation and w/u. Carina Ziegler RN (Molly), BSN, [facility] Liver Employment Law Attorney documented in this encounterTrihealth Bethesda Butler Hospital06-23-2025 History of Present illness Narrative* Kathy [...] tumor on explant pathology (cm): 1.4 Calculated Bluejacket Score: 1 RETREAT score: 1 Surveillance recommendation: MRI abdomen with contrast, non-contrast CT chest, and serum AFP every 6 months for 3 years, then AFP alone every 6 months until 5 years post-transplantation. Kathy Ryan APRN.CNP October 01, 2024 documented in this encounterTrihealth Bethesda Butler Hospital06-23-2025 History of Present illness Narrative* Kaylen [...] PATIENT PRESENTS WITH AN IMPLANTABLE OR ATTACHED MANUFACTURING COST ESTIMATOR: No RADIOLOGY DEPARTMENT: CT; Exam(s) Completed: Abdomen/Pelvis and Brain PERIPHERAL IV DATA: Not applicable SIGNED BY: RT Rob(R) October 07, 2024 2:54 PM documented in this encounterTrihealth Bethesda Butler Hospital06-23-2025 NoteHNO ID: [id number] Author: KAYLEN LADD RT(R) Service: Radiology Author Type: Network Control Technician Type: Progress Notes Filed: 10/07/2024 14:55 Note [...] PATIENT PRESENTS WITH AN IMPLANTABLE OR ATTACHED MANUFACTURING COST ESTIMATOR: No RADIOLOGY DEPARTMENT: CT; Exam(s) Completed: Abdomen/Pelvis and Brain PERIPHERAL IV DATA: Not applicable SIGNED BY: RT Rob(R) October 07, 2024 2:54 PMAJordan Valley Medical Center West Valley [id number] Telephone encounter Note* Telephone Encounter - Carina Ziegler RN - 10/03/2024 5:35 PM EDT I called and updated on orders being entered for staple removal by the [place] staff and she was upset that it had not been done by our team or the staff at [place]. I informed her that I will discussthe issue with the staff at our [place] meeting tomorrow. Carina Ziegler (Molly) RN, BSN, [facility] Liver Employment Law Attorney [facility]06-19-2025 Miscellaneous Notes* Telephone Encounter - Carina Ziegler RN - 10/03/2024 5:35 PM EDT I called and updated on orders being entered for staple removal by the [place] staff and she was upset that it had not been done by our team or the staff at [place]. I informed her that I will discussthe issue with the staff at our [place] meeting tomorrow. Carina Ziegler RN (Molly), BSN, [facility] Liver Employment Law Attorney * Telephone Encounter - Carina Ziegler RN - 10/03/2024 1:36 PM EDT I have called to [facility] and d/w our SWIMMING COACH OR INSTRUCTOR about the orders for staple and suture removal that she d/w them on Monday. Carina Ziegler RN (Molly), BSN, [facility] Liver Employment Law Attorney * Telephone Encounter - Mary Underwood - 10/03/2024 8:59 AM EDT Fabiana called regarding speaking with an [place] that stated the pt's sutures should come out, but chayito spoke with the nurses at the rehab center stated that they do not have nay orders. . Requesting a return call from the ambulatory care coordinator. Please call Fabiana at [phone]. Mary Blackman documented in this encounterTrihealth Bethesda [facility] Hospital06-19-2025 Telephone encounter Note * Telephone Encounter - Carina Ziegler RN - 10/03/2024 1:36 PM EDT I have called to [facility] and d/w our SWIMMING COACH OR INSTRUCTOR about the orders for staple and suture removal that she d/w them on Monday. Carina Ziegler RN (Molly), BSN, [facility] Liver Employment Law Attorney [facility]06-19-2025 Telephone encounter Note* Telephone Encounter - Mary Underwood - 10/03/2024 8:59 AM EDT Fabiana called regarding speaking with an [place] that stated the pt's sutures should come out, but chayito spoke with the nurses at the rehab center stated that they do not have nay orders. . Requesting a return call from the ambulatory care coordinator. Please call Fabiana at [phone]. Mary Blackman [facility]06-18-2025 Telephone encounter Note* Telephone Encounter - Barbara Bella - 10/02/2024 3:33 PM EDT Accidentally routed to [employer]. I re-routed to [employer] so they can work wt this request [facility]06-18-2025 Miscellaneous Notes* Telephone Encounter - Barbara Bella - 10/02/2024 3:33 PM EDT Accidentally routed to [employer]. I re-routed to [employer] so they can work wt this request documented in this encounterTrihealth Bethesda [facility] Hospital06-17-2025 Progress note* Result Encounter Note - Carina Ziegler RN - 10/01/2024 2:38 PM EDT Reviewed liver transplant results and stable-r/w team at [place] f/u call today Carina Ziegler RN (Molly), BSN, [facility] Liver Employment Law Attorney [facility]06-17-2025 Miscellaneous Notes* Result Encounter Note - Carina Ziegler RN - 10/01/2024 2:38 PM EDT Reviewed liver transplant results and stable-r/w team at [place] f/u call today Carina Ziegler RN (Molly), BSN, [facility] Liver Employment Law Attorney documented in this encounterTrihealth Bethesda [facility] Hospital06-04-2025 Telephone encounter Note * Telephone Encounter [...] this Monday. Carina Ziegler RN (Molly), BSN, [facility] Liver Employment Law Attorney [facility]06-04-2025 Miscellaneous Notes* Telephone Encounter - Carina [...] dc education teaching for this Monday. Carina Zigeler RN (Molly), BSN, [facility] Liver Employment Law Attorney documented in this encounterTrihealth Bethesda [facility] Hospital05-27-2025 History of Present illness Narrative* Jadyn Vázquez RN - 09/10/2024 8:35 AM EDT DONOR ID: [id number] MATCH RUN: [id number] Type of Donor: DCD At risk donor: No Liver pumped: OrganOx TRANSPLANT SEROLOGIES: CMV IgG: Donor Positive/ Recipient Negative 04-29-24 EBV IgG: Donor Positive/ Recipient Positive Donor has tested positive for COVID: No Jadyn Vázquez RN, BSN, [facility] Liver Employment Law Attorney documented in this encounterTrihealth Bethesda [facility] Hospital05-25-2025 Note SARS-COV-2 (AGENT OF COVID-19) RNA: Not detected [facility] [id number] Telephone encounter Note* Telephone Encounter - Virginia Blevins RRT - 09/08/2024 1:55 PM EDT UNOS: [id number] Match ID: [id number] Called and informed the patient of a [...] these complications.The patient agreed tocome to the [facility]. Explained the [...] transplant. Karnofsky Score: 30% Virginia Blevins RRT [facility]05-25-2025 Miscellaneous Notes* Telephone Encounter - Virginia Blevins RRT - 09/08/2024 1:55 PM EDT UNOS: [id number] Match ID: [id number] Called and informed the patient of a [...] these complications.The patient agreed tocome to the [facility] for [facility] liver transplant. Explained the [...] 30% Virginia Blevins RRT documented in this encounterTrihealth Bethesda [facility] Hospital05-15-2025 Telephone encounter Note * Telephone Encounter - Yesica Bright RN - 08/29/2024 4:10 PM EDT Spoke with Loyd Blandon's Fabiana, advised that his case was discussed and approved pendingcolonoscopy, EGD, and repeat MRI liver at liver transplant selection committee on August 28, 2024. Yesica Bright RN [facility]05-15-2025 Miscellaneous Notes* Telephone Encounter - Yesica Bright RN - 08/29/2024 4:10 PM EDT Spoke with Loyd Blandon's Fabiana, advised that his case was discussed and approved pendingcolonoscopy, EGD, and repeat MRI liver at liver transplant selection committee on August 28, 2024. Yesica Bright RN documented in this encounterTrihealth Bethesda [facility] Hospital05-14-2025 History of Present illness Narrative* Venus Aden DMD - 08/28/2024 3:26 PM EDT STAFF NOTE: See inpatient note for this encounter on 08/28/2024. Venus Aden DMD * Kaylen Hale DMD - 08/28/2024 10:23 AM EDT See inpatient note for this encounter. Kaylen Hale DMD August 28, 2024 10:23 AM documented in this encounterTrihealth Bethesda [facility] Hospital05-13-2025 History of Present illness Narrative* Araceli [...] Mccoy, Mina Transplant Pharmacy Clinical Specialist Pager: [phone] documented in this encounterTrihealth Bethesda [facility] Hospital05-13-2025 History of Present illness Narrative* Lis [...] the assessment, recommendations and plan. WILBERT Norris-S, [facility] August 27, 2024 2:13 PM documented in this encounterTrihealth Bethes[facility]05-13-2025 Telephone encounter Note * Telephone Encounter - Yesica Bright RN - 08/27/2024 10:39 AM EDT The following information has been provided/discussed with the patient/family during Shared MedicalAppointment education class: Informed Consent for Organ Transplant Program Participation version November 03, 2022. SRTR information provided and questions answered. Informed patient to call ambulatory care coordinator with any questions. UNOS information regarding multiple listings for organ transplantation Evaluation process including presentation to selection committee and listing criteria Surgical procedure, including post-operative management, hospitalization, immunosuppressive medications and their side effects (including the risk for hypertension, diabetes, kidney problems and cancers) and buttermaker continuous churn follow up after transplant. Possibility of recurrent [...] addressed Patient's was provided with [facility] information sheet regarding transplantation of Hepatitis [...] could potentially be read by a third libertarian when sent through the internet (or cellular phone) and desires to receive his protected health information by unencrypted email (or text). INFORMED CONSENT Loyd Blandon Medical Record: [id number] Informed consent for Organ Transplant Program Participation [...] Yesica Bright RN In Department: TRANSPLANT CENTER [facility]05-13-2025 Miscellaneous Notes* Telephone Encounter - Yesica Bright RN - 08/27/2024 10:39 AM EDT The following information has been provided/discussed with the patient/family during Shared MedicalAppointment education class: Informed Consent for Organ Transplant Program Participation version November 03, 2022. SRTR information provided and questions answered. Informed patient to call ambulatory care coordinator with any questions. UNOS information regarding multiple listings for organ transplantation Evaluation process including presentation to selection committee and listing criteria Surgical procedure, including post-operative management, hospitalization, immunosuppressive medications and their side effects (including the risk for hypertension, diabetes, kidney problems and cancers) and penitentiary follow up after transplant. Possibility of recurrent [...] addressed Patient's was provided with [facility] information sheet regarding transplantation of Hepatitis [...] could potentially be read by a third libertarian when sent through the internet (or cellular phone) and desires to receive his protected health information by unencrypted email (or text). INFORMED CONSENT Loyd Blandon Medical Record: [id number] Informed consent for Organ Transplant Program Participation [...] In Department: TRANSPLANT CENTER documented in this encounterTrihealth Bethesda [facility] Hospital05-08-2025 Telephone encounter Note * Telephone Encounter [...] stairs Significant ascites; missed scheduled paracentesis in [place] on Monday and may miss the upcomingone tomorrow New-onset ankle edema; compression socks are ineffective Plan: Nurse strongly advised that the patient go to the Emergency Department ([facility] ED) due to worsening sx Fabiana agreed with the plan and will bring the patient to the [facility] ED. Patient/family is aware of transplant board (TB) recommendations: MRI scheduled for 2024 (order needs to be entered; send Vivocha message) Presentation to the LTSC committee pending Fabiana agreeable to plan - she will take him to the ED for immediate care Marce Gaitan RN August 22, 2024 4:14 PM [facility]05-08-2025 Miscellaneous Notes* Telephone Encounter - Marce [...] stairs Significant ascites; missed scheduled paracentesis in [place] on Monday and may miss the upcomingone tomorrow New-onset ankle edema; compression socks are ineffective Plan: Nurse strongly advised that the patient go to the Emergency Department ([facility] ED) due to worsening sx Fabiana agreed with the plan and will bring the patient to the [facility] ED. Patient/family is aware of transplant board (TB) recommendations: MRI scheduled for 2024 (order needs to be entered; send Advisityhart message) Presentation to the LTSC committee pending Fabiana agreeable to plan - she will take him to the ED for immediate care Marce Gaitan RN August 22, 2024 4:14 PM * Telephone Encounter - Jaron Chinchilla - 08/22/2024 3:07 PM EDT called in Appears very anxious/nervous States he is failing can barely walk and breathing slow Please review and advise documented in this encounterTrihealth Bethes[facility]05-08-2025 Telephone encounter Note * Telephone Encounter - Jaron Chinchilla - 08/22/2024 3:07 PM EDT called in Appears very anxious/nervous States he is failing can barely walk and breathing slow Please review and advise [facility]05-06-2025 Nurse Note* Rosalba Zhu RN - [...] have family/friend present for procedure transport home:Patient/patient warehouse representative was told that if they do [...] area. Any barriers to Patient learning: Patient/Patient Tufter Hand responded appropriately on phone. Type of instruction given: Verbal by telephone contact. Rosalba Zhu RN [facility]05-06-2025 Nurse Note* Rosalba Zhu RN - [...] have family/friend present for procedure transport home:Patient/patient warehouse representative was told that if they do [...] area. Any barriers to Patient learning: Patient/Patient Tufter Hand responded appropriately on phone. Type of instruction given: Verbal by telephone contact. Rosalba Zhu RN documented in this encounterTrihealth Bethesda [facility] Hospital05-05-2025 History of Present illness Narrative* JOEL [...] hyperglycemia, without long-term current use of insulin ([facility]) - Microalbumin / creatinine, urine ratio; Future Ordered urine sample for pt to have completed at his convenience. No follow-ups on file. documented in this encounterSaint Mary's Hospital of [facility] [id number] Telephone encounter Note* Telephone Encounter - Virginia Rodríguez RN - 08/14/2024 12:44 PM EDT Will have to speak with GI team, unable to assist per cardiology. [facility]04-30-2025 Miscellaneous Notes* Telephone Encounter - Virginia Rodríguez RN - 08/14/2024 12:44 PM EDT Will have to speak with GI team, unable to assist per cardiology. documented in this encounterTrihealth Bethesda [facility] Hospital04-28-2025 Instructions* Patient Instructions* Dmitri Garg MD - 08/12/2024 3:20 PM EDT [...] am on dialysis? A: Please consult your hot frame tender prior to scheduling to get instructions pertinent [...] rest of the day. documented in this encounterTrihealth Bethes[facility] Hospital04-16-2025 Telephone encounter Note * Telephone Encounter - Brittaney Mueller - 07/31/2024 1:04 PM EDT External lab orders from [facility] received and scanned. [facility]04-16-2025 Miscellaneous Notes* Telephone Encounter - Brittaney Mueller - 07/31/2024 1:04 PM EDT External lab orders from [facility] received and scanned. documented in this encounterTrihealth Bethesda [facility] Hospital04-15-2025 Telephone encounter Note * Telephone Encounter [...] for this procedure: low risk. Reference from [employer] Engineer: [email or web address] STAFF SIGNATURE: Lex Galo MD DATE: July 30, 2024 TIME: 2:54 PM [facility] Work Phone: 1(131) 663-556204-15-2025 Miscellaneous Notes* Telephone Encounter - Lex Galo [...] for this procedure: low risk. Reference from [facility] Guidance And Control System Engineer: [email or web address] STAFF SIGNATURE: Lex Galo MD DATE: July [...] ALLERGIES No Known Allergies IMAGES: available in [facility] MRI 07/05/24 GUIDELINES FOR HOLDING ANTI-PLATELET AND ANTI- COAGULATION THERAPY: N/A NURSE SIGNATURE: Jeanne Jackson RN DATE: July 30, 2024 TIME: 11:08 AM * Telephone Encounter - Nubia Larsen - 07/30/2024 10:08 AM EDT RADIOLOGY CALL CENTER INTAKE LUMP ROLLER: 000 EXT: DATE: 07/30/2024 TIME: 10:08 am TRACKING #. [id number] REQUESTING PERSON: Meena PHONE/PAGER: [phone] REQUESTING STAFF: Derrick Harris PHONE/PAGER: [phone] SPECIFICS OF THE REQUEST: (Please be as detailed as possible. If request is lymph node biopsy, specify LOCATION of the node if possible): T-10 ot T12 Ver[place]bra[place] (For example: biopsy liver mass or biopsy pelvic lymph node ) SPECIAL REQUESTS: TISSUE SAMPLE, LABWORK: N/A -Fine needle aspiration (FNA), core biopsy, no preference, unsure, specific processing request for pathology (For example: send for [place], [place], HER2/kacey or possible lymphoma send in RPMI [...] (If the imaging was obtained outside the [facility] system, then it needs to be submitted for review prior to approval.) Note to all persons requesting biopsies: All biopsy requests will be scheduled as quickly as possible, based on the clinical urgency, availability of appointment times, the need to hold anti-thrombolytic therapy (aspirin, blood thinners) and the patient s schedule, including the need for an available road train driver. If a percutaneous biopsy or drainage is not felt to be safe or an alternative method for establishing a diagnosis is possible, this will be discussed directly with the requesting physician. documented in this encounterTrihealth [facility]04-15-2025 Telephone encounter Note * Telephone Encounter [...] ALLERGIES No Known Allergies IMAGES: available in [facility] 07/05/24 GUIDELINES FOR HOLDING ANTI-PLATELET AND ANTI- COAGULATION THERAPY: N/A NURSE SIGNATURE: Jeanne Jackson RN DATE: July 30, 2024 TIME: 11:08 AM [facility]04-15-[facility]25 Telephone encounter Note* Telephone Encounter - Nubia Larsen - 07/30/2024 10:08 AM EDT RADIOLOGY CALL CENTER INTAKE LUMP ROLLER: 000 EXT: DATE: 07/30/2024 TIME: 10:08 am TRACKING #. [id number] REQUESTING PERSON: Meena PHONE/PAGER: [phone] REQUESTING STAFF: Derrick Harris PHONE/PAGER: [phone] SPECIFICS OF THE REQUEST: (Please be as detailed as possible. If request is lymph node biopsy, specify LOCATION of the node if possible): T-10 ot T12 Ver[place]brae (For example: biopsy liver mass or biopsy pelvic lymph node ) SPECIAL REQUESTS: TISSUE SAMPLE, LABWORK: N/A -Fine needle aspiration (FNA), core biopsy, no preference, unsure, specific processing request for pathology (For example: send for ER, [place], HER2/kacey or possible lymphoma send in RPMI [...] (If the imaging was obtained outside the [facility] system, then it needs to be submitted for review prior to approval.) Note to all persons requesting biopsies: All biopsy requests will be scheduled as quickly as possible, based on the clinical urgency, availability of appointment times, the need to hold anti-thrombolytic therapy (aspirin, blood thinners) and the patient s schedule, including the need for an available road train driver. If a percutaneous biopsy or drainage is not felt to be safe or an alternative method for establishing a diagnosis is possible, this will be discussed directly with the requesting physician. [facility]04-[facility] Telephone encounter Note* Telephone Encounter - Meena Leyva - 07/30/2024 10:05 AM EDT Please disregard. I've spoken with the nurse about this and the orders are correct. [facility]04-[facility] Miscellaneous Notes* Telephone Encounter - Meena Leyva - 07/30/2024 10:05 AM EDT Please disregard. I've spoken with the nurse about this and the orders are correct. * Telephone Encounter - Meena Leyva - 07/30/2024 9:52 AM EDT Per patient's spouse, IR stated that the biopsy orders were not placed correctly. documented in this encounterTrihealth Bethes[facility]04-15-2025 Telephone encounter Note * Telephone Encounter - Meena Leyva - 07/30/2024 9:52 AM EDT Per patient's spouse, IR stated that the biopsy orders were not placed correctly. [facility]04-10-[facility] History of Present illness Narrative* Derrick [...] was initiating a liver transplant workup at [facility]. During imaging with a CT scan [...] schedule. Patient would like to do at [facility] if feasible. Follow-up with results. Signed by: Derrick Harris MD Medical Decision Making: Problems: High: Illness/injury w/ threat to life/body function Risk: High: High risk from testing/treatment Medical Decision Making Level: 5 - High cc: Sanjay Robledo II, MD [address] [facility] [address] [place] [address] Dmitri Garg [phone] [facility] [id number] documented in this encounterTrihealth [facility]04-10-2025 History of Present illness Narrative* Dmitri [...] cirrhosis. MRI Liver obtained in 01/[address] [facility] had noted the following: FINDINGS: LIVER: Small heterogeneous liver with nodular margins. Subtle masslike area within posterior right hepatic lobe, 3.9 x 3.7 cm in axial plane seen only on the postcontrast images. No corresponding findings on other sequences or planes. Of note, this lesion was initially commented on a CT scan at [facility] in 09/2023, but the subsequent MR sequences from 10/2023 did not have proper contrast administration, so the lesion was not able to be well evaluated. A follow-up CT liver (triple phase) done at [facility] in 04/2024 noted the followin.0 cm [...] bony lesion in T10-T12 region. MRI spine ([facility], 07/05/2024): Bone marrow signal/fracture: Marrow replacing [...] started on Lasix 60 mg q12h and [place] nolactone 150 mg daily, and started to [...] gain. He continues to need serial paracentesis [id number]. Last paracentesis was in late June 2024 [...] 25, 2024 1:05 PM documented in this encounterTrihealth Bethes[facility]03-31-2025 Telephone encounter Note * Telephone Encounter - HenryIleana - 07/15/2024 8:30 AM EDT Patient labs are uploaded into patient's chart for review. Scanned in under External Labs/Misc. Labs [facility]03-31-2025 Miscellaneous Notes* Telephone Encounter - HenryIleana - 07/15/2024 8:30 AM EDT Patient labs are uploaded into patient's chart for review. Scanned in under External Labs/Misc. Labs documented in this encounterTrihealth Bethes[facility]03-27-2025 Telephone encounter Note * Telephone Encounter - Yesica Bright RN - 07/11/2024 9:37 AM EDT Spoke with Loyd León Blandon and his , advised that his case was discussed and declined at livertransplant selection committee on July 10, 2024. Next step is to follow up with hepatology and oncology teams. Yesica Bright RN [facility]03-27-2025 Miscellaneous Notes* Telephone Encounter - Yesica Bright RN - 07/11/2024 9:37 AM EDT Spoke with Loyd León Blandon and his , advised that his case was discussed and declined at livertransplant selection committee on July 10, 2024. Next step is to follow up with hepatology and oncology teams. Yesica Bright RN documented in this encounterTrihealth Bethes[facility]03-24-2025 Telephone encounter Note * Telephone Encounter [...] Garg. Appointment schedule reviewed. Yesica Bright RN [facility]03-24-[facility]25 Miscellaneous Notes* Telephone Encounter - Yesica [...] reviewed. Yesica Bright RN documented in this encounterTrihealth Bethesda [facility]03-21-2025 History of Present illness Narrative* Rajiv [...] PATIENT PRESENTS WITH AN IMPLANTABLE OR ATTACHED MANUFACTURING COST ESTIMATOR: No RADIOLOGY DEPARTMENT: MR; Exam(s) Completed: Spine: Thoracic spine PERIPHERAL IV DATA: Not applicable SIGNED BY: Rajiv Blankenship RT MR July 05, 2024 6:13 PM documented in this encounterTrihealth Bethesda [facility] Hospital03-21-2025 NoteName: Loyd Blandon Patient presents for a Paracentesis. Indication for Procedure: Ascites INFORMED CONSENT Loyd Blandon Medical Record: [id number] Procedure: Paracentesis with US marking The risks, [...] associated with the procedure. Elsy Johnson APRN.CNP [id number] Nurse Note* Raquel Rodrigues RN - 07/05/2024 [...] was removed via paracentesis. Orders received from [facility] for IV placement and albumin infusion. A #22 Gauge angio cath was placed in the Right AC. 50 grams of albumin was infused per protocol and the IV was discontinued post infusion. Raquel Rodrigues RN [facility]03-21-2025 Nurse Note* Raquel Rodrigues RN - [...] was removed via paracentesis. Orders received from [facility] for IV placement and albumin infusion. A #22 Gauge angio cath was placed in the Right AC. 50 grams of albumin was infused per protocol and the IV was discontinued post infusion. Raquel Rodrigues RN documented in this encounterTrihealth Bethes[facility] Hospital03-21-2025 Nurse procedure note* Sedation Documentation - Raquel Rodrigues RN - 07/05/2024 10:30 AM EDT Albumin 4 [facility]03-[facility] Nurse procedure note* Sedation Documentation - Raquel Rodrigues RN - 07/05/2024 10:30 AM EDT Needle out; 6.4L out [facility]03-21-20[facility] Miscellaneous Notes* Sedation Documentation - Raquel [...] 5; albumin 2 * Sedation Documentation - Raquel Rodrigues RN - 07/05/2024 10:07 AM EDT [...] Needle in; bottle 1 documented in this encounterTrihealth Bethes[facility] Hospital03-21-2025 Nurse procedure note* Sedation Documentation - Raquel Rodrigues RN - 07/05/2024 10:21 AM EDT Albumin 3 [facility]03-[facility] Nurse procedure note* Sedation Documentation - Raquel Rodrigues RN - 07/05/2024 10:13 AM EDT Bottle 5; albumin 2 [facility]03-[facility] Nurse procedure note* Sedation Documentation - Raquel Rodrigues RN - 07/05/2024 10:07 AM EDT Albumin 1 [facility]03-21-[facility] Nurse procedure note* Sedation Documentation - Raquel Rodrigues RN - 07/05/2024 9:47 AM EDT Bottle 4 [facility]03-[facility] Nurse procedure note* Sedation Documentation - Steffany Ley RN - 07/05/2024 9:37 AM EDT Bottle 3 [facility]03-[facility] Nurse procedure note* Sedation Documentation - Raquel Rodrigues RN - 07/05/2024 9:25 AM EDT Bottle 2 [facility]03-[facility] Nurse procedure note* Sedation Documentation - Raquel Rodrigues RN - 07/05/2024 9:08 AM EDT Needle in; bottle 1 [facility]03-17-2025 Telephone encounter Note* Telephone Encounter - Yesica Bright RN - 07/01/2024 2:36 PM EDT Call placed to clarify the need for an admission if PERLITA is noted on repeat CMP. Patient will have labs drawn 07/02/24 locally. All questions answered. Yesica Bright RN [facility]03-17-2025 Miscellaneous Notes* Telephone Encounter - Yesica Bright RN - 07/01/2024 2:36 PM EDT Call placed to clarify the need for an admission if PERLITA is noted on repeat CMP. Patient will have labs drawn 07/02/24 locally. All questions answered. Yesica Bright RN documented in this encounterTrihealth Bethes[facility]03-10-2025 Telephone encounter Note * Telephone Encounter - RupinderJaron oscar - 06/24/2024 8:58 AM EDT Recent lab results are scanned in under external labs/chemistry Jaron [employer] ll [facility]03-10-2025 Miscellaneous Notes* Telephone Encounter - RupinderJaron oscar - 06/24/2024 8:58 AM EDT Recent lab results are scanned in under external labs/chemistry Jaron [employer] ll documented in this encounterTrihealth Bethesda [facility]03-05-2025 Evaluation note* Diagnosis Onset Date Resolution Status Admit Date Cirrhosis acuteMarch 2024 11:48am [facility] Work Phone: 1(126) 842-871003-05-2025 Radiology Diagnostic study [facility] [place] [address] Ultrasound Report Signed Patient: Loyd Blandon MR#: [id number] : 1955 Acct:[id number] Age/Sex: 68 / M ADM Date: 5 Loc: Room: Type: [facility] Attending Dr: Irena Johnson MD Ordering [...] and local anesthesia with lidocaine, a 5 Lao centesis catheter was advanced into the peritoneal cavity. Approximately 4700 mL of ascites was drained. The catheter was removed. There were no immediate complications. US/US paracentesis abd w/image IMPRESSION: SUCCESSFUL ULTRASOUND-GUIDED PARACENTESIS. Impression dictated by: Morales Alvarez Jr., Eduardo06/19/2024 3:34 PM Dictation Location: [place] [address] Tech: Blanca Nicolas Transcribed By: ROLAND 06/19/24 1534 Dictated By: Morales Alvarez Jr, DO 06/19/24 1534 Signed By: 06/19/24 1534 [facility]03-05-2025 Telephone encounter Note* Telephone Encounter - Elaina Sotomayor HUC - 06/19/2024 8:23 AM EST Spoke with pt's Fabiana to schedule Thoracentesis 07/05/2024 @ 3:30 pm. [facility]03-05-2025 Miscellaneous Notes* Telephone Encounter - Elaina Sotomayor HUC - 06/19/2024 8:23 AM EST Spoke with pt's Fabiana to schedule Thoracentesis 07/05/2024 @ 3:30 pm. documented in this encounterTrihealth Bethes[facility]02-28-2025 Telephone encounter Note * Telephone Encounter [...] room locally or to bring him to [facility] Main ER. She was also instructed to call 911 if he experience difficulty breathing. All questions answered. Yesica Bright RN [facility]02-28-2025 Miscellaneous Notes* Telephone Encounter - Yesica [...] room locally or to bring him to [facility] Main ER. She was also instructed to call 911 if he experience difficulty breathing. All questions answered. Yesica Bright RN documented in this encounterTrihealth Bethes[facility]02-24-2025 Telephone encounter Note * Telephone Encounter - Abner Shankar - 06/10/2024 9:[address] Seals, Please see the below [employer] message and contact patient to advise within 72 hours. Abner Pacheco I scheduled Bill's 2nd shot for today at [facility]. Specifically the [employer] brand and [facility] just called stating [employer] would not approve that brand. [facility] thought maybe if you requested approval from [employer] directly it may be approved. It is $190 which is not something we want to pay. He will be getting his RSV today. [facility]02-24-[facility]25 Miscellaneous Notes* Telephone Encounter - Abner Shankar - 06/10/2024 9:[address] Seals, Please see the below [employer] message and contact patient to advise within 72 hours. Abner Eng Field Health Officer I scheduled Bill's 2nd shot for today at [facility]. Specifically the [employer] brand and [facility] just called stating [employer] would not approve that brand. [facility] thought maybe if you requested approval from [employer] directly it may be approved. It is $190 which is not something we want to pay. He will be getting his RSV today. documented in this encounterTrihealth [facility]hes[facility]02-22-2025 History of Present illness Narrative* Brad [...] PATIENT PRESENTS WITH AN IMPLANTABLE OR ATTACHED MANUFACTURING COST ESTIMATOR: No RADIOLOGY DEPARTMENT: MR; Exam(s) Completed: Spine: Cervical spine, Thoracic spine, and Lumbar spine PERIPHERAL IV DATA: Site assessment: Clean,Dry and Intact, Site disposition Discontinued SIGNED BY: RT Ginger(R) June 08, 2024 2:10 PM documented in this encounterTrihealth [facility]hes[facility]02-22-2025 History of Present illness Narrative* Akua [...] 2024 TIME: 12:17 PM documented in this encounterTrihealth Bethes[facility]02-20-2025 Telephone encounter Note * Telephone Encounter [...] MD Colton Steen MD Siuba, Matthew, MD [facility]02-20-2025 Miscellaneous Notes* Telephone Encounter - Yesica [...] MD Siuba, Matthew, MD documented in this encounterTrihealth Bethesda [facility] Hospital02-14-2025 Nurse Note* Mis Hong RN - [...] MATERIAL: Procedure Discharge Instructions REFERRAL (RECOMMENDATION): None [facility]02-14-20[facility] Nurse Note* Mis Hong RN - [...] RN In Department: GASTROENTEROLOGY documented in this encounterTrihealth Bethesda [facility] Hospital02-14-2025 Nurse procedure note* Sedation Documentation - Mis Hong RN - 05/31/2024 9:54 AM EST Bottle 3 [facility]02-14-20[facility] Miscellaneous Notes* Sedation Documentation - Mis Hong RN - 05/31/2024 9:54 AM EST Bottle 3 * Sedation Documentation - Mis Hong RN - 05/31/2024 9:36 AM EST Bottle 2 documented in this encounterTrihealth Bethes[facility]02-14-2025 Nurse procedure note* Sedation Documentation - Mis Hong RN - 05/31/2024 9:36 AM EST Bottle 2 [facility]02-14-[facility] Nurse Note* Mis Hong RN - [...] By: Mis Hong RN In Department: GASTROENTEROLOGY [facility]02-14-20[facility] History of Present illness Narrative* Dada Hoffman RRT - 05/31/2024 8:19 AM EST PULM FUNCTION: Provider: Cheri Guido MD Spirometry: 1 DLCO: 1 documented in this encounterTrihealth Bethes[facility]02-13-2025 Telephone encounter Note * Telephone Encounter [...] Carranza RN, RN. In Department of CARDIOLOGY. [facility]02-13-[facility]25 Miscellaneous Notes* Telephone Encounter - Pema [...] In Department of CARDIOLOGY. documented in this encounterTrihealth Bethesda [facility]02-13-2025 Telephone encounter Note * Telephone Encounter [...] relayed to Dr. Garg. Yesica Bright RN' [facility]02-13-[facility]25 Miscellaneous Notes* Telephone Encounter - Yesica [...] Garg. Yesica Bright RN' documented in this encounterTrihealth Bethes[facility]02-12-2025 Telephone encounter Note * Telephone Encounter - Raymond Odell - 05/29/2024 10:33 AM EST Sent urgent request to the scheduling pool. [facility]02-12-2025 Miscellaneous Notes* Telephone Encounter - Raymond Odell - 05/29/2024 10:33 AM EST Sent urgent request to the scheduling pool. documented in this encounterTrihealth Bethesda [facility]02-06-2025 Instructions* Patient Instructions* Brisa Bull MD - 05/23/2024 12:29 PM EST You were seen today for your shortness of breath and right sided pleural effusion (fluid). I will reach out to Dr. Rosales regarding repeating a paracentesis and thoracentesis prior to your [facility] on 05/31. We will have you repeat your pulmonary function tests immediately after your thoracentesis. Please follow up as needed. documented in this encounterTrihealth Bethesda [facility]02-06-2025 History of Present illness Narrative* Cheri Guido MD - 05/23/2024 11:30 AM EST Images from the original note were not included. Mr. Blandon is a 68 year old male who presents to the [facility] [place]. Consultation requested by Dr. Dmitri Garg for [...] personally reviewed by me Data Reviewed from [facility] (in addition to that noted in [...] year old male who presents to the [facility] [place] for evaluation of shortness of breath, currently [...] up Cheri Guido MD documented in this encounterTrihealth Bethesda [facility]02-06-2025 History of Present illness Narrative* Toshia Keita RRT - 05/23/2024 10:41 AM EST PULM FUNCTION: Provider: Brisa Bull MD Spirometry: 1 System: MC2 - [id number] documented in this encounterTrihealth Bethesda [facility]02-06-2025 History of Present illness Narrative* Courtney [...] PATIENT PRESENTS WITH AN IMPLANTABLE OR ATTACHED MANUFACTURING COST ESTIMATOR: No RADIOLOGY DEPARTMENT: General X-ray: Exam(s) Completed: Chest X-Ray PERIPHERAL IV DATA: Not applicable SIGNED BY: RT Noris(R) May 23, 2024 10:30 AM documented in this encounterTrihealth Bethes[facility]02-05-2025 Telephone encounter Note * Telephone Encounter - Patsy Begum - 05/22/2024 9:00 AM EST Admin responded to pt MC message regarding lab appt. Patsy Begum May 22, 2024 9:02 AM [facility]02-[facility] Miscellaneous Notes* Telephone Encounter - Patsy Begum - 05/22/2024 9:00 AM EST Admin responded to pt MC message regarding lab appt. Patsy Begum May 22, 2024 9:02 AM documented in this encounterTrihealth Bethes[facility]01-31-2025 Telephone encounter Note * Telephone Encounter [...] now viewable in the scanned section of [facility](hepatology is aware). Yesica Bright RN [facility]01-31-2025 Miscellaneous Notes* Telephone Encounter - Yesica [...] now viewable in the scanned section of [facility](hepatology is aware). Yesica Bright RN documented in this encounterTrihealth Bethesda [facility]01-24-2025 Telephone encounter Note * Telephone Encounter - Patsy Begum - 05/10/2024 11:37 AM EST Admin received outside lab results for pt. Uploaded into OnBase for review. Patsy Cardosohea May 10, 2024 11:37 AM [facility]01-24-2025 Miscellaneous Notes* Telephone Encounter - Patsy Begum - 05/10/2024 11:37 AM EST Admin received outside lab results for pt. Uploaded into [employer] for review. Patsy Begum May 10, 2024 11:37 AM documented in this encounterTrihealth Bethes[facility]01-24-2025 Telephone encounter Note * Telephone Encounter - Brittaney Mueller - 05/10/2024 9:17 AM EST External chem labs received and scanned. [facility] Miscellaneous Notes* Telephone Encounter - Brittaney Mueller - 05/10/2024 9:17 AM EST External chem labs received and scanned. documented in this encounterTrihealth Bethesda [facility] Hospital01-22-2025 History of Present illness Narrative* Hal [...] hepatic artery thrombosis, and . Short and buttermaker continuous churn outcomes data was discussed. I reviewed an [...] 08, 2024 12:45 PM documented in this encounterTrihealth Bethesda [facility]01-21-2025 Telephone encounter Note * Telephone Encounter - Yesica Brigth RN - 05/07/2024 1:44 PM EST Follow up call placed to review OLT evaluation as well and Dr. Garg's need for a repeat CMP after the administration of of the adjusted diuretic regimen. Will follow up with patient and his on 05/10/24 to review tumor board results. Yesica Bright RN [facility]01-21-2025 Miscellaneous Notes* Telephone Encounter - Yesica Bright RN - 05/07/2024 1:44 PM EST Follow up call placed to review OLT evaluation as well and Dr. Garg's need for a repeat CMP after the administration of of the adjusted diuretic regimen. Will follow up with patient and his on 05/10/24 to review tumor board results. Yesica Bright, RN documented in this encounterTrihealth Bethesda [facility]01-16-2025 Instructions* Patient Instructions* Brisa Seals MD [...] if foreign travel considered. 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 no exposure to anyone who is homeless or in senior care. Significant other exposures: Smoking: prior Alcohol:none current [...] 11:16 AM PAGER/CONTACT #: documented in this encounterTrihealth Bethesda [facility]01-16-2025 History of Present illness Narrative* Jade Arora MD - 05/02/2024 12:30 PM EST Images from the original note were not included. [facility] [place] Claude Suárez Department of Cardiovascular Medicine SECTION OF CLINICAL CARDIOLOGY OUTPATIENT VISIT DATE May 02, 2024 OUTPATIENT VISIT TYPE CONSULTATION PRIMARY CARE PHYSICIAN: Not on file REFERRING PHYSICIAN Dmitri Garg [address] [facility] [id number] CHIEF COMPLAINT: Pre liver transplant HISTORY OF PRESENT ILLNESS: Cardiac consultation at the request of Dr. Dmitri Garg.A copy of this consultation note will be provided to the requesting physician by way of shared Medical record or letter to requesting physicianvia US mail. Mr. Blandon is a 68 year old male from [place], [place], here today for cardiovascular evaluation related [...] in T10 is suspicious for neoplastic etiology. Behavioral Science Chair: SRINI Transcribe Date/Time: Apr 30 2024 8:19A [...] INFORMATION: Jade Arora MD May 02, 2024 [address] [place] [address] Greta Attestation: By signing my name below, [...] 03, 2024 1:51 PM documented in this encounterTrihealth [facility] Nurse procedure note* Sedation Documentation - [...] Follow up as needed Jenn Corea RN [facility]01-15-2025 Miscellaneous Notes* Sedation Documentation - Jenn Corea RN - 05/01/2024 12:02 PM EST 5.3 liters of ascites fluid was removed via paracentesis. Orders received from Rosalinda Benoit [facility] forIV placement and albumin infusion. A #22 [...] 3. 1105: Bottle 4. documented in this encounterTrihealth Bethesda [facility] Hospital01-15-2025 Nurse procedure note* Sedation Documentation - Jenn oCrea RN - 05/01/2024 11:45 AM EST Needle out. 5.3 L removed via paracentesis without incident. Pressure dressing applied to pt's leftabdomen accordingly. [facility]01-[facility] Nurse procedure note* Sedation Documentation - Jenn Corea RN - 05/01/2024 11:30 AM EST 1130: Albumin 1 1135: Albumin 2 1144: Albumin 3 [facility]01-[facility] Nurse procedure note* Sedation Documentation - Jenn Corea RN - 05/01/2024 11:29 AM EST #22 peripheral IV placed in pt's right AC for needed albumin infusion. Blood return present. [facility] Nurse procedure note* Sedation Documentation - Jenn Corea RN - 05/01/2024 10:46 AM EST 1045: Needle in. Bottle 1. 1050: Bottle 2. 1055: Bottle 3. 1105: Bottle 4. [facility]01-[facility] Nurse Note* Jenn Corea RN - [...] By: Jenn Corea RN In Department: GASTROENTEROLOGY [facility]01-[facility] Nurse Note* Jenn Corea RN - [...] RN In Department: GASTROENTEROLOGY documented in this encounterTrihealth Bethesda [facility]01-15-2025 Consult note* Colton Laughlin MD - [...] cirrhosis for 5 month(s). Dr Johnson in [place] referred here to Dr Weir. Patient Currently [...] included preparing to see the patient and [id number] patient care. SIGNATURE: Colton Laughlin MD PATIENT NAME: Loyd Blandon DATE: May 01, 2024 TIME: 8:14 AM [facility]01-15-[facility] Consult note* Colton Laughlin MD - [...] cirrhosis for 5 month(s). Dr Johnson in [place] referred here to Dr Weir. Patient Currently [...] included preparing to see the patient and qxts-vh-[id number] patient care. SIGNATURE: Colotn Laughlin MD PATIENT NAME: Loyd Blandon DATE: May 01, 2024 TIME: 8:14 AM documented in this encounterTrihealth Bethes[facility]01-14-2025 Telephone encounter Note * Telephone Encounter - Elaina Sotomayor HUC - 04/30/2024 3:54 PM EST Spoke with pt's Fabiana to schedule Thoracentesis 05/01/2024 @ 12:30 pm. [facility]01-[facility] Miscellaneous Notes* Telephone Encounter - Elaina Sotomayor HUC - 04/30/2024 3:54 PM EST Spoke with pt's Fabiana to schedule Thoracentesis 05/01/2024 @ 12:30 pm. documented in this encounterTrihealth Bethes[facility] Hospital01-14-2025 History of Present illness Narrative* Alessandro Vo [facility] - 04/30/2024 1:00 PM EST Images from [...] Bactrim [Sulfametho* Rash Preferred Pharmacy e- [id number] [place] [address] - [address] [facility] - [phone] [facility] [address] [facility] [address] Evaluation of current pharmacotherapy: Current Outpatient Rx [...] HAV, HBV, Shingrix, and RSV Received at [facility] will bring in records Education provided: [...] Transplant Pharmacy Clinical Specialist documented in this encounterTrihealth Bethes[facility]01-14-2025 Telephone encounter Note * Telephone Encounter - Yesica Bright RN - 04/30/2024 10:23 AM EST AMBULATORY PATIENT EDUCATION NOTE Met with patient/family to discuss the following information: [x] SRTR information provided and questions answered. Informed patient to call ambulatory care coordinator with any questions [x] Patient was provided the UNOS brochure on multiple listing and waiting time transfer [x]Evaluation process including presentation to selection committee, and listing criteria reviewed [x]Surgical procedure, including post-operative management, hospitalization, lifelong immunosuppressive medications and their side effects (including the risk for hypertension, diabetes, kidney problems and cancers) and penitentiary follow up after transplant. Possibility of recurrent disease discussed with patient. [x]Patient is aware of the potential medical, surgical or psychosocial risks [x] Patient is aware that they will need a ambulatory care nurse to be available for the first 8-12 [...] to listing. [x] Patient told that the [facility] is a teaching facility and part of care, under the guidance of my physicians, may be conducted by Residents, Eckert and students. [x]Patient advised that transplants not [...] Yesica Bright RN In Department: TRANSPLANT CENTER [facility]01-14-[facility]25 Miscellaneous Notes* Telephone Encounter - Yesica Bright RN - 04/30/2024 10:23 AM EST AMBULATORY PATIENT EDUCATION NOTE Met with patient/family to discuss the following information: [x] SRTR information provided and questions answered. Informed patient to call ambulatory care coordinator with any questions [x] Patient was provided the UNOS brochure on multiple listing and waiting time transfer [x]Evaluation process including presentation to selection committee, and listing criteria reviewed [x]Surgical procedure, including post-operative management, hospitalization, lifelong immunosuppressive medications and their side effects (including the risk for hypertension, diabetes, kidney problems and cancers) and penitentiary follow up after transplant. Possibility of recurrent disease discussed with patient. [x]Patient is aware of the potential medical, surgical or psychosocial risks [x] Patient is aware that they will need a ambulatory care nurse to be available for the first 8-12 [...] to listing. [x] Patient told that the [facility] is a teaching facility and part of care, under the guidance of my physicians, may be conducted by Residents, Eckert and students. [x]Patient advised that transplants not [...] In Department: TRANSPLANT CENTER documented in this encounterTrihealth Bethesda [facility] Hospital01-13-2025 History of Present illness Narrative* Gena [...] PATIENT PRESENTS WITH AN IMPLANTABLE OR ATTACHED MANUFACTURING COST ESTIMATOR: No RADIOLOGY DEPARTMENT: CT; Exam(s) Completed: Chest and Liver PERIPHERAL IV DATA: Site assessment: Clean,Dry and Intact, Site disposition Discontinued SIGNED BY: RT Aura(R) April 29, 2024 4:59 PM documented in this encounterTrihealth Bethes[facility]01-13-2025 History of Present illness Narrative* Dmitri Garg MD - 04/29/2024 3:31 PM EST HEPATOLOGY [...] BID - plan to repeat EGD at [facility] HCC screening - requires imaging every [...] 04/29/2024 Time: 7:40 PM documented in this encounterTrihealth Bethes[facility]01-13-2025 History of Present illness Narrative* Lis [...] White// Heritage US Citizen: Yes Preferred Language: Sri [place]ankan Lives now: Loyd Blandon [id number] [address] [facility] [address] Impressions: Patient is a 68 year old , male being evaluated for an OLT due to a diagnosis of alcohol-related cirrhosis, possible HCC . Social Support- Patient lives at home with his in house in [place], [place]. Patient reports that he has 3 [...] GI, Dr. Garzon, [facility]-PCP Personal History: Born: [place], [place] Grew up where: went to 8 high schools, [place] [facility], moved around a lot Parents: Pt was raised by: mom raised him, and got along well with her. Had contact with biologicaldad, he 5 years ago. Got when patient was 8. Dad from old age, and mom was COPD and emphysema, alcoholic Siblings: 3 brothers and a sister-brothers live in [place], and sister lives on the [facility] (don't talk to sister); half mkklar-Qccchzw-atkozghfy part Pt is the: oldest Describes upbringing [...] none Honorable discharge: none VA benefits: none Custodial/Penitentiary: none Currently on parole/probation:none Any outstanding legal issues:none Relationship status: -35 years Name of spouse/partner: Fabiana Age: 68 Occupation: retired Medical concerns: none Quality of relationship: good Children: Yes. How many? 2 -1 son and 1 dtr Names and Ages: Bev-41 Loyd-45 Location: No contact with Bev, lives in [place], [place] Loyd-lives in [place] Health issues: Loyd is an addict Quality [...] Likes golfing, watching football, cooking Community Supports: Sabianism: No Other supports: spouse/partner and siblings-half sister, step mom Functioning Abilities: ADL's: requires assistance with the following ADL's: bathing, toileting, ambulating, grocery shopping, house cleaning, and driving-breathing is the issue (sob) Ambulation: Uses a wheelchair-for long distances in the hospital, but does not use a device when athome Community Services/Agencies: None Driving: none-the last year 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 Access to Transporation: Yes Caregiving for [...] her 20s History of working with medical 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: good Compliant: Good with consistent follow through Motivation for a transplant: Patient shared that his motivation is that he is not ready to yet,I do not feel that I have lived a full life yet Living Donor: haven't looked into it Discussed MELD score, evaluation process, selection committee, listing, waiting, the call, surgery,hospital recovery time, hospital stay, discharge, penitentiary recovery Financial: Insurance: Medicare-Aetna Prescription Coverage : [...] mom Primary support person: Fabiana- Home # [phone] Availability 07/11 Driving:yes Medical/Health Concerns: none Secondary support people: Gisell-half sister Contact #: [phone] Availability not working Driving: yes Medical/Health Concerns: none Who can drive you, be off work, learn your medications, etc.: family Plan for children or pets: Gisell-half sister Other people available: family Family stressors/disagreements: none If multiple caregivers are identified are they able to work together?: yes Patient and Care -Partner(s) read and signed- Patient and Home Demonstrator Commitment: reviewed Mental Health History/Coping: Current Mental [...] chemical dependency treatment and/or 12-step meetings with [facility] or [facility] since their last use. Y 2. Does [...] Directives: Living Will: Yes Durable Power of Crystal Mounter: Yes Information/forms given: completed a couple weeks ago ANNA Norris LISW-S, [facility] April 29, 2024 12:49 PM documented in this encounterTrihealth Bethes[facility] Hospital01-13-2025 Instructions* Patient Instructions* Sara-Ivelisse Cabrera, EBER [...] milk and fairlife shakes documented in this encounterTrihealth Bethesda [facility] Hospital01-13-2025 History of Present illness Narrative* Ivelisse [...] 2024 TIME: 12:01 PM documented in this encounterTrihealth Bethes[facility]01-13-2025 History of Present illness Narrative* Amaury Sheffield, MARKELL - 04/29/2024 10:00 AM EST PULM FUNCTION: Provider: Dmitri Garg MD Spirometry: 1 System: [employer] - [id number] documented in this encounterTrihealth Bethes[facility]01-09-2025 History of Present illness Narrative* Kalyn George RN - 04/25/2024 11:46 AM EST The following information has been provided/discussed with the patient/family during Shared MedicalAppointment education class: Informed Consent for Organ Transplant Program Participation version November 03, 2022. SRTR information provided and questions answered. Informed patient to call ambulatory care coordinator with any questions. UNOS information regarding multiple listings for organ transplantation Evaluation process including presentation to selection committee and listing criteria Surgical procedure, including post-operative management, hospitalization, immunosuppressive medications and their side effects (including the risk for hypertension, diabetes, kidney problems and cancers) and buttermaker continuous churn follow up after transplant. Possibility of recurrent [...] addressed Patient was provided with [facility] information sheet regarding transplantation of HepatitisC [...] could potentially be read by a third libertarian when sent through the internet (or cellular phone) and desires to receive his protected health information by unencrypted email (or text). INFORMED CONSENT Loyd Blandon Medical Record: [id number] Informed consent for Organ Transplant Program Participation [...] RN April 25, 2024 documented in this encounterTrihealth Bethes[facility] Hospital01-08-2025 Telephone encounter Note * Telephone Encounter [...] patient have to hold Beta Connie? NO [facility]01-08-2025 Miscellaneous Notes* Telephone Encounter - Chas [...] hold Beta Connie? NO documented in this encounterTrihealth Bethes[facility] Hospital01-07-2025 Telephone encounter Note * Telephone Encounter [...] Zoom education class: 04/25/24 Virginia Hickman RN [facility]01-07-2025 Miscellaneous Notes* Telephone Encounter - Virginia [...] RN - 04/23/2024 9:33 AM EST [facility] Referral for Liver Transplant This is a [...] Neuro: None Cancer: Yes, BCC skin L tenriism 2017 s/p MOHS Psych: None Other pertinent history: Yes, recinos's esoph, early satiety, weight loss, GERD, dyspepsia Vitals: Date: 03/08/24 BP: 130/91 mmHg HR: 68 bpm Ht: 175.3cm Wt: 84.4kg BMI: 27.47 (send BMI >35 to clinical assistant grocery store manager)(If BMI>35 and diagnosis of alcohol, note [...] and B, Tetanus, Zostivax, Flu, Pneumonia, etc.): [facility] Testing completed already: None Pt will need: CT liver for indeterminate mass like lesion, pulm Pt to provide the following records: Yes, dental, derm Virginia Hickman RN documented in this encounterTrihealth Bethes[facility]01-07-2025 Telephone encounter Note * Telephone Encounter - Virginia Hickman RN - 04/23/2024 9:33 AM EST [facility] Referral for Liver Transplant This is a [...] Neuro: None Cancer: Yes, BCC skin L tenriism 2017 s/p MOHS Psych: None Other pertinent history: Yes, recinos's esoph, early satiety, weight loss, GERD, dyspepsia Vitals: Date: 03/08/24 BP: 130/91 mmHg HR: 68 bpm Ht: 175.3cm Wt: 84.4kg BMI: 27.47 (send BMI >35 to clinical assistant grocery store manager)(If BMI>35 and diagnosis of alcohol, note [...] records: Yes, dental, derm Virginia Hickman RN [facility]01-06-2025 Telephone encounter Note* Telephone Encounter - [...] we can see him. Virginia Hickman RN [facility]01-06-2025 Miscellaneous Notes* Telephone Encounter - Virginia [...] speed up the process. documented in this encounterTrihealth Bethes[facility] Hospital01-06-2025 Telephone encounter Note * Telephone Encounter - Jillian Aguayo - 04/22/2024 11:14 AM EST Patients is calling for status update. She wants to know what the next step is. Pt is having difficulty breathing and she would like to speed up the process. [facility] Work Phone: 1(927) 141-786512-12-2024 Telephone encounter Note* Telephone Encounter - Chas King II - 03/28/2024 12:39 PM EST LIVER TRANSPLANT REFERRAL Loyd Blandon [id number] Diagnosis: ETOH MELD Na: 18 (Check EPIC [...] referral for transplant to your (OOS) Medicaid adult protective caseworker? No MyCHART Is the patient signed up for MyChart? Yes - Send patient the OLT New Referral Message OUTSIDE RECORDS (ENSURE THAT RECORDS ARE OBTAINED FROM REFERRING PHYSICIAN OFFICE) Have you ever been seen by: -Cardiology? no -Nephrology? no -Psychiatry? no Care Everywhere: List the facilities that records have been requested from [facility] Be sure to obtain consent from pt to obtain records in care everywhere if it is required [facility]: List the facilities or physicians that records have been requested from [facility] Have images been requested from [employer]? Yes (If imaging records are available in Care Everywhere, still request the outside images via [facility]) A nurse will call for medical intake: -who should she call (Name/relationship to pt)? patient -what phone number? [phone] Phone number to office provided to pt: Yes Additional Comments about patient/evaluation: n/a Chas King [facility]12-12-2024 Miscellaneous Notes* Telephone Encounter - Chas King II - 03/28/2024 12:39 PM EST LIVER TRANSPLANT REFERRAL Loyd Blandon [id number] Diagnosis: ETOH MELD Na: 18 (Check EPIC [...] PATIENTS: APC - run the Medicaid through [employer] to determine if the coverage is Out [...] referral for transplant to your (OOS) Medicaid adult protective caseworker? No MyCHART Is the patient signed up for MyChart? Yes - Send patient the OLT New Referral Message OUTSIDE RECORDS (ENSURE THAT RECORDS ARE OBTAINED FROM REFERRING PHYSICIAN OFFICE) Have you ever been seen by: -Cardiology? no -Nephrology? no -Psychiatry? no Care Everywhere: List the facilities that records have been requested from [facility] Be sure to obtain consent from pt to obtain records in care everywhere if it is required [facility]: List the facilities or physicians that records have been requested from [facility] Have images been requested from [facility]? Yes (If imaging records are available in Care Everywhere, still request the outside images via [facility]) A nurse will call for medical intake: -who should she call (Name/relationship to pt)? patient -what phone number? [phone] Phone number to office provided to pt: Yes Additional Comments about patient/evaluation: n/a Chas King documented in this encounterTrihealth Bethesda [facility] Hospital12-09-2024 Telephone encounter Note * Telephone Encounter - Chas King II - 03/25/2024 10:30 AM EST Called patient regarding a liver transplant evaluation, left message on voicemail to return call [facility]12-[facility] Miscellaneous Notes* Telephone Encounter - Chas King II - 03/25/2024 10:30 AM EST Called patient regarding a liver transplant evaluation, left message on voicemail to return call documented in this encounterTrihealth Bethesda Butler Hospital11-22-2024 Note Attestation signed by Irena Johnson [...] documentation in this note for specific details. [facility] Gastroenterology Follow-Up Patient Visit CHIEF COMPLAINT No [...] large esophageal v (more content not included)... [facility]11-05-2024 NoteHospital Medicine Discharge Summary Final Discharge [...] differential In process Fungal culture In process Non-civil engineer land development cytology - fluid exam In process PH PLEURAL FLUID, RESPIRATORY In process Pathology Review In process AFB culture Preliminary result Body fluid cell differential Preliminary result Body fluid culture Preliminary result Diet at the time of discharge: regular diet and low-sodium diet Nutrition Screen Activity: Patient currently has no discharge activity orders Objective Blood p (more content not included)...[facility] 02-20-2024 Note02/20/24 1518 Admission Assessment Questions [...] Status Interested Does the patient have a adult protective caseworker assigned to them through their insurance? No [...] able to send link and activate MyChart? NoUnDetwiler Memorial Hospital11-05-2024 NotePatient: Loyd Blandon Procedure Summary Date: 02/20/24 [...] PACU per anesthesia protocol. No notable events documented.[facility]11-05-20[facility] Note Hospital Medicine Daily Progress Note - 02/20/2024 1:46 PM; Room: OR/- Admission: 02/19/2024 4:29 PM; Length of stay: 1 days THE HOSPITALIST TEAM PREFERS TO USE [employer] CHAT FOR NON-URGENT COMMUNICATION 7AM-7PM. IF I DO NOT RESPOND WITHIN 20 MINUTES OR URGENT MATTERS, PLEASE CALL THROUGH THE LUMP ROLLER. FROM 7PM-7AM, PLEASE PAGE [phone](COVR). Code Status: Full Code Barriers to Discharge: [...] , FREET4 , CORTISOL , FEV1 , BNQ7ACS , DLCO , RVSP , HDL , LDL No results found for: [id number] , IRON , TIBC , C3 , [...] that demonstrated two columns (more content not included)...[facility]11-05-2024 NoteHoital Medicine Daily Progress Note - 02/20/2024 1:34 PM; Room: OR/- Admission: 02/19/2024 4:29 PM; Length of stay: 1 days THE HOSPITALIST TEAM PREFERS TO USE [employer] FOR NON-URGENT COMMUNICATION 7AM-7PM. IF I DO NOT RESPOND WITHIN 20 MINUTES OR URGENT MATTERS, PLEASE CALL THROUGH THE LUMP ROLLER. FROM 7PM-7AM, PLEASE PAGE [phone](COVR). Code Status: Full Code Barriers to Discharge: [...] , FREET4 , CORTISOL , FEV1 , [id number] , DLCO , RVSP , HDL , LDL No results found for: [id number] , IRON , TIBC , C3 , [...] is a recent righ (more content not included)...[facility]11-05-2024 Note Attestation signed by Aston Conner MD at 02/21/2024 1:03 PM I was present and supervised the procedure THORACENTESIS PROCEDURE NOTE Procedure Newsagent: Sriram Sue MD Attending Physician: Aston Conner [...] Sue MD Pulmonary and Critical Care Fellow [facility]11-05-2024 Note Attestation signed by Aston Conner MD [...] cirrhosis for which he follows up with [facility] gastroenterology. He has been struggling with recurrent ascites and has undergone multiple paracentesis over the past many weeks. He experiences dyspnea both at rest and over exertion for the past [address] imaging he was found to have large right-sided pleural effusion for which he underwent thoracentesis by supervisory aide at [facility]. Patient reports that his dyspnea got better/relieved for 1 day and he became symptomatic again after the fluid got reaccumulated. Today patient came to the [facility] for an EGD he is [...] his Primary GI doctors. Follow-up at the [facility] for therapeutic paracentesis and thoracentesis. Current Medications: Scheduled Meds: [MAR Hold] carvedilol, 3.125 mg, oral, Nightly [MAR Hold] famotidine, 40 mg, oral, BID [MAR Hold] furosemide, 60 mg, oral, Nightly [JUN Hold] lactulose, 10 g, oral, Daily [JUN Hold] pantoprazole, 40 mg, oral, Daily [JUN Hold] prednisoLONE acetate, 1 drop, Both Eyes, TID [JUN Hold] rifAXIMin, 550 mg, oral, (more content not included)...[facility]11-05-2024 NotePatient: Loyd Blandon Procedure Information Date/Time: 11/27/23 1130 Scheduled providers: Irena Johnson MD; Jl Kent MD; VALDEMAR Heath Procedure: EGD Location: [facility] [place] Relevant Problems Cardio (+) Aortic root dilatation [...] normal exam Pulmonary (+) decreased breath sounds AbdominalUnDetwiler [facility] Hospital11-05-2024 NoteA. Satisfactory for evaluation. Examination of the ThinPrep slide and cell block reveals a hypocellu lar specimen containing few mesothelial cells and scattered inflammatory cells in a background of proteinaceous material.[facility] Comment on above:Performed By: #### LAB13 ####[facility] (MILLIE)[address] [place], [place] [id number] NoteHospital Medicine History and Physical 02/19/2024 3:19 PM THE HOSPITALIST TEAM PREFERS TO USE [employer] CHAT FOR COMMUNICATION 7AM-7PM. IF I DO NOT RESPOND WITHIN 15 MINUTES, PLEASE PAGE ME/CALL THROUGH THE LUMP ROLLER. FROM 7PM-7AM, PLEASE PAGE [phone](COVR). Chief Complaint EGD variceal screening History of [...] pleural effusion, thora in the past at [facility] Dyspnea 2cm Hepatic lesion in the hepatic [...] med rec is (more content not included)... [facility]10-31-2024 Note Attestation signed by Jean Jaquez MD at 02/16/2024 1:16 PM I have seen and examined the patient. I reviewed the resident/fellow note and I agree with the findings and plan. Jean Jaquez MD Interventional Pulmonary Medicine Pulmonary and Critical Care Medicine [facility] Visit Note Patient: Loyd Blandon Age: 68 y.o. : 1955 Account No.: [id number] Referring physician: Dr. Irena Johnson Chief complaint: [...] he underwent thoracentesis by Dr. Winter at [facility]. He reports that his dyspnea [...] Yes Marito Oquendo MD (more content not included)...[facility]10-03-2024 History of Present illness Narrative* Ira [...] different lens options were explained including the [id number] fees for any upgrades. Intraocular lens (IOL) [...] - and OD -. documented in this encounterSaint Mary's Hospital of Blue [id number] Note Attestation signed by Irena Johnson MD at 01/01/2024 8:49 AM I discussed the findings and therapeutic plan with the fellow. I agree with the documentation, except for any edits/updates below. I called and spoke with the patient and his , Fabiana. I confirmed with them that they should use Lasix 60 mg once daily as previously instructed, and they acknowledged this.[facility]09-11-2024 Note Attestation signed by Irena Johnson [...] were changed during his recent hospitalization at [facility], therefore, will repeat labs Will change to [...] documentation in this note for specific details. [facility] Gastroenterology Follow-up visit CHIEF COMPLAINT Chief [...] patient was recently hospitalized at [facility] for worsening ascites and shortness of breath. She reports that patient has fluid removed via thoracentesis and paracentesis. He has not undergone paracentesis since his hospital stay. She reports that d (more content not included)... [facility]08-28-2024 History of Present illness Narrative* JOEL [...] was increasedto 40 mg BID but saw Refinery Operator in [place], Dr. Hazel, and he was not happy [...] cause drowsiness. Abdominal distension They will contact [facility] to get set up for repeat paracentesis as needed, previously orchestrated by his GI specialist. QUESADA (dyspnea on exertion) - Transthoracic Echo (TTE) Complete; Future Will obtain an ECHO for further evaluation at this time. Gastroesophageal reflux disease without esophagitis Continue current medications as prescribed. Other ascites - Transthoracic Echo (TTE) Complete; Future The patient is seeing a front office medical assistant for this condition, treatment is deferred to that specialist. Correspondence from that specialist and any available testing were reviewed during today's visit. 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 Will be having a follow up EGD in three months for monitoring of esophageal varices. Follow up for Appointment As Scheduled. documented in this encounterSaint Mary's Hospital of Blue [id number] NotePatient: Lyod Blandon Procedure Summary Date: 11/27/23 Room / Location: [facility] Anesthesia Start: 1041 Anesthesia Stop: 1107 Procedure: [...] PACU per anesthesia protocol. No notable events documented.[facility]08[facility] Note Patient: Loyd Blandon Procedure Summary Date: 11/27/23 Room / Location: [facility] Anesthesia Start: 1040 Anesthesia Stop: Procedure: EGD Diagnosis: Alcoholic cirrhosis of liver with ascites (CMS/HCC) Scheduled Providers: Irena Johnson MD; Jl Kent MD; VALDEMAR Heath Responsible Provider: Jl Kent MD Anesthesia Type: MAC ASA Status: 3 Anesthesia Post [facility] Patient Monitor: direct observation Transport: uneventful Patient condition is: stableUnDetwiler Memorial Hospital08-12-2024 Note Patient: Loyd Blandon Procedure Information Date/Time: 11/27/23 1130 Scheduled providers: Irena Johnson MD; Jl Kent MD; VALDEMAR Heath Procedure: EGD Location: [facility] Relevant Problems Cardio Denies chest pain/SOB (+) [...] patient. Plan discussed with CAA. Additional Equipment RequestsUnDetwiler Memorial Hospital07-24-2024 Note Refills providedUnDetwiler Memorial Hospital07-01-2024 NotePatient is going to continue taking the medication. PAP application submitted to [employer]. Follow up on status. Darnell Razo CPhT [facility] 03/04/24 1:08 PMUnDetwiler Memorial Hospital07-01-2024 NotePatient due for Xifaxan Pap renewal. Darnell Razo CPhT [facility] 02/19/24 8:39 AMUnDetwiler Memorial Hospital07-01-2024 NoteHave received pt. Portion of PAP form still waiting on prescribers portion. Re faxed the forms over to GI. Send PAP forms in once prescribers portion is signed. Darnell Razo CPhT [facility] 10/20/23 1:20 PMUnDetwiler Memorial Hospital07-01-2024 NoteXifaxan PA approved through 04/10/2024, previous approval. Pt has not been on lactulose, prescribed lactulose on the same day as Xifaxan. Based on discussion with annual income for 2 people in the household is $52,000. Should qualify for PAP. Will email provider and pt portions. Josh Jane, PharmD, BCACP 10/16/23 1:56 PM [facility] [phone] Memorial Hospital07-01-2024 NoteI received a call from [facility] - the patient's was incomplete on page 5 of the application. I have corrected this and refaxed it to [facility]. We will continue to follow up. Brandi Valdo, [facility] 03/11/24 2:21 PMGuernsey Memorial Hospital07-01-2024 NotePatient assistance application approved through [facility]. Approval good through 04/16/2024. Patient Case ID/Approval Number: [id number]. Notified patient and will follow up to confirm shipment/delivery is scheduled. Yamini Camarillo, [facility] 10/23/23 10:11 [facility]07-01-2024 NotePrior Authorization renewal for Xifaxan has been approved 04/17/2024-11/04/2024. Case ID/Authorization Number: [id number] [x] Patient in spreadsheet [x] Tracking Spreadsheet [x] Archive in CM Called patient and they are aware wants to try and appeal PAP denial. Patient has 300 tablets on hand. Set follow up for Monday to write appeal. Misha Voss [facility] 05/08/24 3:01 PMGuernsey Memorial Hospital07-01-2024 NoteCalled [facility] and they said that the denial was reversed and the application is now under review again. Appeal was received. Follow up on status on application. Darnell Razo, [facility] 05/17/24 2:24 PMGuernsey Memorial Hospital07-01-2024 NoteWrote appeal for PAP and had [facility] sign. Faxed to PAP awaiting determination. Follow up next week for status. Misha Voss [facility] 05/10/24 11:42 [facility]07-01-2024 NotePatient was denied PAP due [...] Called PAP if copay is really high warehouse representative encouraged us to appeal the denial. Send in letter and claim to show he can't afford. Misha Voss CPhT [facility] 05/08/24 8:35 AMGuernsey Memorial Hospital07-01-2024 Note Attestation with edits by Josh Jane PharmD, LOYD at 03/22/2024 9:15 AM Josh Jane PharmD, RUBACP 03/22/24 9:15 AM [facility] [phone] Called [employer] to check the status of the PAP application, rep stated that they cannot process 2024 application until April 17, but we do not need to resubmit the paperwork. Call to check PAP status around a week after the new year begins. Emilee Larios, [facility] 03/21/24 12:23 PMGuernsey Memorial Hospital07-01-2024 NoteCalled patient to verify if he is still taking he said he is in hospital and having a few procedures done. Follow up later this week he won't know if he is still taking until after discharge tomorrow. Misha Voss CPhT [facility] 02/19/24 4:31 PMGuernsey Memorial Hospital07-01-2024 NotePatient said the delivery has been scheduled and is on its way. Aware they have to [facility] time [facility] need a [facility]. Have no further questions. Will no longer follow up. Darnell Razo [facility] 10/25/23 10:27 [facility]07-01-2024 NoteSubmitted a PA for Xifaxan on [facility] awaiting determination. Once we get approval we can see how much copay is. Then we can see how much the copay for a month is and if patient is okay with it (probably high copay) or see if patient wants to talk with insurance about repayment plans, or we can appeal decision with high copay to PAP once we have claim. [facility]isha [facility] 05/08/24 2:01 [facility]07-01-2024 Note Attestation signed by Iman Rincon PharmD at 04/25/2024 9:36 AM Iman Rincon PharmD, [facility] Outpatient Clinical Pharmacist [facility] [id number] 04/25/24 9:36 AM Called [facility] to check the status of PAP, application is still pending review. F/U with sally to check status of PAP application. Juve Araya [facility] 04/15/24 10:46 [facility]07-01-2024 NoteReceived a fax from [employer] stating that they need the image of the backside of the patient's medical insurance card and a image of the script with the patient's name and drug on it. Submitted into [employer]. Awaiting on determination. Darnell Razo, [facility] 03/07/24 9:05 [facility]07-01-2024 NoteXifaxan patient assistance application approved through [employer]. Approval good through 04/16/2025. Patient Case ID/Approval Number: [id number]. [x] Write on board [x] PA Expiration Spreadsheet Called patient, they will call PAP to refill when they need to. Modesto Neff, [facility] [id number] 05/21/24 at 8:13 [facility]07-01-2024 NoteCalled to check on the status and the appeal has not been received yet. I was told that will take some time. Yamini Camarillo, [facility] 05/13/24 11:02 [facility]07-01-2024 NotePAP application is still pending benefit review. Awaiting determination check later for status update. Misha Voss , [facility] 04/04/24 1:40 [facility]06-28-2024 NoteI called and discussed the results of his labwork with the patient. With his sodium level being slightly below baseline, we will have him repeat his labs prior to EGD tomorrow. He expressed clear understanding. If he continues to have low sodium, we may need to consider holding diuretics.[facility]06-28-2024 Note Attestation signed by Irena Johnson [...] documentation in this note for specific details. [facility] Gastroenterology Follow-up visit CHIEF COMPLAINT Chief [...] function of stomach (more content not included)... [facility]05-30-2024 NoteCT ordered to rule out chronic mesenteric ischemiaUnDetwiler Memorial Hospital02-14-2024 History of Present illness Narrative* Brayan Rouse [...] surgery has been scheduled. documented in this encounterSaint Mary's Hospital of Blue [id number] History of Present illness Narrative* Brayan Alves DO - 05/18/2023 2:00 PM EST Images from the original note were not included. Loyd Blandon 1955 Loyd Blandon is a 67 y.o. male presents with chief complaint of painful hemorrhoid HPI: HPI Huber states he has a hemorrhoid for the last 5-6 weeks. He was seen by Dr. Carroll's FOREST FIREFIGHTER who referred him to our office. Huber [...] 3 weeks for recheck documented in this encounterSaint Mary's Hospital of Blue [id number] Evaluation note* Encounter Date Diagnosis Assessment Notes Treatment Notes Treatment Clinical Notes Apr, Nausea (ICD-10 - R11.0) Apr,irrhosis of liver (ICD-10 - K74.60) Apr,Early satiety (ICD-10 - R68.81) [facility] Other 12-28-2023 Evaluation note* Encounter Date Diagnosis Assessment Notes Treatment Notes Treatment Clinical Notes Mar, Lower abdominal pain (ICD-10 - R 10.30) [facility] Other 12-27-2023 Evaluation note* Encounter Date Diagnosis [...] (ICD-10 - R68.81) Mar,loating (ICD-10 - R14.0) [facility] Other 07-27-2023 Evaluation note* Encounter Date Diagnosis [...] a time. Pt advised to start probiotic ([employer]) Pt RTO 3 MONTHS [facility] Other 06-07-2023 Procedure noteProtestant Deaconess HospitalEvaluation + Plan note No data available for this section [facility] Josue Evaluation noteNo assessment information available [facility] Work Phone: Evaluation noteNo InformationNortNew Lifecare [facility]so[facility] Other Evaluation note* Diagnosis Fissure in ano Anal fissure documented in this encounter [facility] Healthcare[facility]* Diagnosis Fissure in ano- Primary Anal fissure documented in this encounter [facility] HealthcareEvaluation note* Diagnosis Onset Date Resolution Status Cirrhosis acuteDyspepsia and disorder of function of stomachacuteEmesisacuteEsophageal dysmotilityacute [facility] Work Phone: Evaluation note* Diagnosis Age-related nuclear cataract of both eyes- Primary documented in this encounter [facility] HealthcareEvaluation note* Diagnosis Laennec's cirrhosis (HCC)- Primary Alcoholic cirrhosis of liver [facility]* Diagnosis Cirrhosis of liver with ascites, unspecified hepatic cirrhosis type (CMS/HCC)- Primary Dizziness Dizziness and giddiness Abdominal distension Flatulence, eructation, and gas pain QUESADA (dyspnea on exertion) Other dyspnea and respiratory abnormality Gastroesophageal reflux disease without esophagitis Esophageal reflux Other ascites Secondary esophageal varices without bleeding (CMS/HCC) documented in this encounter [facility]* Diagnosis Pleural effusion associated [...] liver disease (MASLD) documented in this encounter [facility]* Diagnosis Encounter for education- [...] liver disease (MASLD) documented in this encounter [facility]* Diagnosis Dietary counseling and surveillance- Primary Dietary surveillance and counseling Lesion of liver greater than 1 cm in diameter Alcoholic cirrhosis of liver with ascites (HCC) Alcoholic cirrhosis of liver Liver transplant candidate Metabolic dysfunction-associated steatotic liver disease (MASLD) Awaiting organ transplant Awaiting organ transplant status Severe protein-calorie malnutrition (HCC) Other severe protein-calorie malnutrition [facility] Diagnosis Pleural effusion associated with hepatic disorder Other specified forms of effusion, except tuberculous Shortness of breath Lesion of liver greater than 1 cm in diameter Alcoholic cirrhosis of liver with ascites (HCC) Alcoholic cirrhosis of liver Liver transplant candidate Metabolic dysfunction-associated steatotic liver disease (MASLD) [facility]* Diagnosis Pleural effusion associated with [...] Unspecified pleural effusion documented in this encounter [facility]* Diagnosis Pleural effusion associated with hepatic disorder- Primary Other specified forms of effusion, except tuberculous Shortness of breath Alcoholic cirrhosis of liver with ascites (HCC) Alcoholic cirrhosis of liver Liver transplant candidate Pleural effusion Unspecified pleural effusion [facility]* Diagnosis Thrombocytopenia (HCC)- Primary Thrombocytopenia, [...] Unspecified pleural effusion [facility]* Diagnosis Need for vaccination- Primary [...] Unspecified pleural effusion [facility]* Diagnosis Liver transplant candidate- Primary Pleural effusion Unspecified pleural effusion [facility]* Diagnosis Alcoholic cirrhosis of liver [...] Unspecified pleural effusion [facility]* Diagnosis Liver mass- Primary Unspecified disorder of liver Low back pain, unspecified back pain laterality, unspecified chronicity, unspecified whether sciatica present Pleural effusion Unspecified pleural effusion [facility] Primary hypertension- Primary Unspecified essential hypertension Pleural effusion Unspecified pleural effusion documented in this encounter [facility]* Diagnosis Dyspnea, unspecified type- Primary Pleural effusion Unspecified pleural effusion documented in this encounter [facility]* Diagnosis Dyspnea, unspecified type Pleural effusion Unspecified pleural effusion documented in this encounter [facility]* Diagnosis Other ascites- Primary Pleural effusion Unspecified pleural effusion [facility]* Diagnosis Pleural effusion associated with hepatic disorder Other specified forms of effusion, except tuberculous Shortness of breath Lesion of liver greater than 1 cm in diameter Alcoholic cirrhosis of liver with ascites (HCC) Alcoholic cirrhosis of liver Liver transplant candidate Metabolic dysfunction-associated steatotic liver disease (MASLD) Pleural effusion Unspecified pleural effusion documented in this encounter [facility]* Diagnosis Unilateral inguinal hernia without obstruction or gangrene, recurrence not specified- Primary Pleural effusion Unspecified pleural effusion documented in this encounter [facility]* Diagnosis Liver transplant candidate- Primary Pleural effusion Unspecified pleural effusion documented in this encounter [facility]* Diagnosis Pleural effusion associated with hepatic disorder- Primary Other specified forms of effusion, except tuberculous documented in this encounter [facility]* Diagnosis Pleural effusion associated with hepatic disorder- Primary Other specified forms of effusion, except tuberculous documented in this encounter [facility]* Diagnosis Coronary artery disease involving [place] coronary artery of [place] heart, unspecified whether angina present- Primary documented in this encounter [facility]* Diagnosis Other ascites documented in this encounter [facility]* Diagnosis Liver transplant candidate- Primary documented in this encounter [facility]* Diagnosis Unilateral inguinal hernia without obstruction or gangrene, recurrence not specified documented in this encounter [facility] note* Diagnosis Low back pain, unspecified back pain laterality, unspecified chronicity, unspecified whether sciatica present documented in this encounter [facility]* Diagnosis Low back pain, unspecified back pain laterality, unspecified chronicity, unspecified whether sciatica present documented in this encounter [facility]* Diagnosis Low back pain, unspecified back pain laterality, unspecified chronicity, unspecified whether sciatica present documented [facility] this encounter [facility]* Diagnosis Pathological fracture, other site, initial encounter for fracture- Primary documented in this encounter [facility]* Diagnosis Other ascites- Primary documented in this encounter [facility]* Diagnosis Liver transplant candidate- Primary Pleural effusion Unspecified pleural effusion documented in this encounter [facility]* Diagnosis Onset Date Resolution Status Admit Date Cirrhosis acuteMarch 2024 11:48am [facility] Work Phone: [facility] note* Diagnosis Other ascites- Primary Pleural effusion Unspecified pleural effusion documented [facility] this encounter [facility]* Diagnosis Pathological fracture, other site, initial encounter for fracture documented in this encounter [facility]* Diagnosis Other ascites documented in this encounter [facility]* Diagnosis 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 Secondary malignant neoplasm of bone and bone marrow documented in this encounter [facility]* Diagnosis Metastatic malignant neoplasm, unspecified site (HCC)- Primary documented in this encounter [facility]* Diagnosis Hepatocellular carcinoma (HCC)- Primary Malignant neoplasm of liver, primary documented in this encounter [facility]* Diagnosis Cirrhosis of liver without ascites, unspecified hepatic cirrhosis type (HCC)- Primary documented in this encounter [facility]* Diagnosis Encounter for screening colonoscopy- Primary Special screening for malignant neoplasms, colon documented in this encounter [facility]* Diagnosis Cirrhosis of liver without ascites, unspecified hepatic cirrhosis type (HCC)- Primary Liver transplant candidate Lesion of liver greater than 1 cm in diameter Alcoholic cirrhosis of liver with ascites (HCC) Alcoholic cirrhosis of liver documented in this encounter [facility]* Diagnosis Aortic root dilatation (CMS/HCC)- Primary Thoracic aneurysm without mention of rupture Cirrhosis of liver with ascites, unspecified hepatic cirrhosis type (CMS/HCC) QUESADA (dyspnea on exertion) Other dyspnea and respiratory abnormality Alcoholic cirrhosis of liver with ascites (CMS/HCC) Other acute postprocedural pain- Primary Type 2 diabetes mellitus with hyperglycemia, without long-term current use of insulin (CMS/HCC) [facility] Diagnosis Abnormal bone scan of thoracic spine- Primary Nonspecific abnormal results of other specified function study [facility] Diagnosis Other ascites- Primary [facility] Diagnosis Laennec's cirrhosis (HCC)- Primary Alcoholic cirrhosis of liver documented in this [facility]* Diagnosis Liver transplant candidate- Primary documented [facility]* Diagnosis Hepatic encephalopathy (HCC)- Primary Hepatic encephalopathy Decompensated cirrhosis (HCC) Pre-operative clearance Preoperative examination, unspecified documented [facility] Diagnosis Liver transplant candidate- Primary Alcoholic cirrhosis of liver with ascites (HCC) Alcoholic cirrhosis of liver documented [facility] Diagnosis Hepatic encephalopathy (HCC)- Primary [...] Abdominal pain, generalized [facility]* Diagnosis Hepatic encephalopathy (HCC)- Primary [...] of bile duct documented in this [facility]* Diagnosis Hepatic encephalopathy (HCC)- Primary [...] site, group D documented in this encounter [facility] Author Lex Carroll [facility] September 21, 2022 8:04amNote Date/TimeJun2022 8:[address] [address] Gastroenterology H&P Signed Patient: Loyd Blandon MR#: [id number] : 1955 Acct:[id number] Age/Sex: 67 / M Adm Date: 3 Loc: Room: Type: [facility] Attending Dr: Lex Carroll MD Copies [...] Lex Carroll MD> 09/21/22 0804 [facility] Work Phone: History general Narrative - Reported* Type Description Date Medical History hypertension Medical HistoryGERDSurgical HistorygallbladderSurgical Historyelbow surgery Surgical Historymesh placement [facility] Isoflux Other Hospital Discharge instructions Additional Instructions DISCHARGE [...] problems. -Follow up with PCP. -Office number [phone].[facility] Work Phone: Hospital Discharge instructions No data available for this section [facility] Progress note No data available for this section [facility] Reason for referral (narrative)* Outpatient Procedure (Routine) - AuthorizedSpecialtyDiagnoses / ProceduresReferred By Contact Referred [facility] Diagnoses Shortness of breath Liver transplant candidate Procedures ABDOM PARACENTESIS DX/THER W IMAGING GUIDANCE ABDOM PARACENTESIS DX/THER W IMAGING GUIDANCE Dmitri Garg MD [address] [place] [address] [facility] [place] [id number] Ref[facility]Status[facility] DateExpiration DateVisits RequestedVisits [id number] Auto-Generated Referral [facility] for referral (narrative)* Outpatient Procedure (Routine) - ClosedSpecialtyDiagnoses / ProceduresReferred By ContactReferred To Contact [facility] [place] Diagnoses Shortness of breath Liver transplant candidate Procedures ABDOM PARACENTESIS DX/THER W IMAGING GUIDANCE ABDOM PARACENTESIS DX/THER W IMAGING GUIDANCE Dmitri Garg MD [address] [facility] [place] [address] [facility] [address] [place] [address] Referral IDStatusReasonStart DateExpiration DateVisits RequestedVisits [id number] Auto-Generated Referral [facility] for referral (narrative)* Outpatient Procedure (Routine) - AuthorizedSpecialtyDiagnoses / ProceduresReferred By ContactReferred To [facility] Diagnoses Pleural effusion associated with hepatic disorder Shortness of breath Lesion of liver greater than 1 cm in diameter Alcoholic cirrhosis of liver with ascites (HCC) Liver transplant candidate Metabolic dysfunction-associated steatotic liver disease (MASLD) Procedures ECG COMPLETE ECG ROUTINE ECG W/LEAST 12 LDS W/I&R Jade Arora MD [id number] [place] [address] Referral IDStatusReasonart DateExpiration DateVisits RequestedVisits [id number] Auto-Generated Referral * Transition of Care (Routine) - AuthorizedSpecialtyDiagnoses / Procedures Referred By ContactReferred To [facility] Diagnoses Pleural effusion associated with hepatic disorder Shortness of breath Lesion of liver greater than 1 cm in diameter Alcoholic cirrhosis of liver with ascites (HCC) Liver transplant candidate Metabolic dysfunction-associated steatotic liver disease (MASLD) Procedures CARDIOVASCULAR MEDICINE OP FOLLOW UP APPT ORDER Jade Arora MD [address] [place] [address] [place] [address] Referral IDStatusReasonStkaw city DateExpiration DateVisits RequestedVisits [id number] PCP Requested Referral [facility] for referral (narrative)* Outpatient Procedure (Routine) - AuthorizedSpecialtyDiagnoses / ProceduresReferred By ContactReferred To [facility] Diagnoses Other ascites Procedures ABDOM PARACENTESIS DX/THER W IMAGING GUIDANCE ABDOM PARACENTESIS DX/THER W IMAGING GUIDANCE Dmitri Garg MD [address] [place] [address] [place] [address] Referral IDStatusReasonStart DateExpiration DateVisits RequestedVisits [id number] Auto-Generated Referral [facility] for referral (narrative)* Outpatient Procedure (Routine) - New RequestSpecialtyDiagnoses / ProceduresReferred By ContactReferred To [facility] Diagnoses Pleural effusion associated with hepatic disorder Procedures LUNG DIFFUSION CAPACITY (DLCO) LUNG DIFFUSION CAPACITY (DLCO) DIFFUSING CAPACITY Cheri Guido MD [address] [place] [address] [place] [address] Referral IDStatusAmandaasonart DateExpiration DateVisits RequestedVisits [id number] Request Auto-Generated Referral * Outpatient Procedure (Routine) - New RequestSpecialtyDiagnoses / Procedures Referred By ContactReferred To [facility] Diagnoses Pleural effusion associated with hepatic disorder Procedures SPIROMETRY WITH DILATOR IF OBSTRUCTED SPIROMETRY WITH DILATOR IF OBSTRUCTED BRNCDILAT RSPSE SPMTRY PRE&POST-BRNCDILAT ADMN Cheri Guido MD [address] [place] [phone] [place] [address] Referral IDStatusReasonStart DateExpiration DateVisits RequestedVisits [id number] Request Auto-Generated Referral [id number] [facility] for referral (narrative)No reason for referral [facility] Phone: [facility] Narrative* Outpatient Procedure (Routine) - ClosedSpecialtyDiagnoses / ProceduresReferred By ContactReferred To ContactEDGE[facility] Diagnoses Shortness of breath Liver transplant candidate Procedures ABDOM PARACENTESIS DX/THER W IMAGING GUIDANCE ABDOM PARACENTESIS DX/THER W IMAGING GUIDANCE Dmitri Garg MD [address] [place] [address] [facility] [place] [address] [place] [address] Referral IDStatusFult[facility] HospitalStart DateExpiration DateVisits RequestedVisits [id number] Auto-Generated Referral [facility] for visit Narrative* Auth/Cert (Routine)Specialty Diagnoses / ProceduresReferred By ContactReferred To ContactADMITTING Diagnoses 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] Procedures THORACENTESIS NEEDLE/CATH PLEURA W/IMAGING THORACENTESIS NEEDLE OR CATHETER ASPIRATION OF THE PLEURAL SPACE W IMAGING GUIDANCE Admitting [address] [place] [address] Referral IDStatusResaint john's hospitalStart DateExpiration DateVisits RequestedVisits [id number] [facility] for visit Narrative* Outpatient Procedure (Routine) - ClosedSpecialtyDiagnoses / ProceduresReferred By ContactReferred To Contact [facility] Diagnoses Other ascites Procedures ABDOM PARACENTESIS DX/THER W IMAGING GUIDANCE ABDOM PARACENTESIS DX/THER W IMAGING GUIDANCE Dmitri Garg MD [address] [place] [address] Phone: tel: fax: [place] [address] Referral IDStatusFulton State HospitalStkaw city DateExpiration DateVisits RequestedVisits [id number] Auto-Generated Referral / [facility] for visit Narrative* Diagnostic Procedure Only (Routine) - ClosedSpecialtyDiagnoses / ProceduresReferred By ContactReferred To Contact [facility] Diagnoses Unilateral inguinal hernia without obstruction or gangrene, recurrence not specified Procedures US PELVIS LTD US PELVIC NONOBSTETRIC IMAGE DCMTN LIMITED/F/U Dmitri Garg MD [address] [place] [address] Phone: tel: fax: [facility] [place] [address] Referral IDStatusReasonFair[place] DateExpiration DateVisits RequestedVisits [id number] Auto-Generated Referral [facility] for visit Narrative* MRI/CT (Routine) - ClosedSpecialty Diagnoses / ProceduresReferred By ContactReferred To ContactMR IMAGING Diagnoses Low back pain, unspecified back pain laterality, unspecified chronicity, unspecified whether sciatica present Procedures MRI THORACIC SPINE WO/W IVCON MRI SPINAL CANAL THORACIC W/O & W/CONTR Dmitri Thomas MD [address] [place] [address] Phone: tel: fax: [facility] [place] [address] Referral IDStatusReason[place] DateExpiration DateVisits RequestedVisits [id number] Auto-Generated Referral [facility] for visit Narrative* MRI/CT (Routine) - ClosedSpecialty Diagnoses / ProceduresReferred By ContactReferred To ContactMR IMAGING Diagnoses Low back pain, unspecified back pain laterality, unspecified chronicity, unspecified whether sciatica present Procedures MRI LUMBAR SPINE WO/W IVCON MRI SPINAL CANAL LUMBAR W/O & W/CONTR Dmitri Thomas MD [address] [place] [address] Phone: tel: fax: [facility] [place] [address] Referral IDStatusReasonStkaw city DateExpiration DateVisits RequestedVisits [id number] Auto-Generated Referral [facility] for visit Narrative* MRI/CT (Routine) - ClosedSpecialty Diagnoses / ProceduresReferred By ContactReferred To ContactMR IMAGING Diagnoses Pathological fracture, other site, initial encounter for fracture Procedures MRI THORACIC SPINE WO IVCON MRI SPINAL CANAL THORACIC W/O CONTRAST Dmitri Thomas MD [address] [place] [address] Phone: tel: fax: [facility] [place] [address] Referral IDStatusReasonStart DateExpiration DateVisits RequestedVisits [id number] Auto-Generated Referral / [facility] for visit Narrative* Auth/Cert (Routine)Specialty Diagnoses / ProceduresReferred By ContactReferred To ContactADMITTING Diagnoses Pleural effusion Pleural effusion [J90] Procedures THORACENTESIS NEEDLE/CATH PLEURA W/IMAGING THORACENTESIS NEEDLE OR CATHETER ASPIRATION OF THE PLEURAL SPACE W IMAGING GUIDANCE Admitting [address] [place] [address] Referral IDStatusReasonStart DateExpiration DateVisits RequestedVisits [id number] [facility] for visit Narrative* Auth/Cert (Routine)Specialty Diagnoses / ProceduresReferred By ContactReferred To ContactSP INPATIENT Diagnoses Hepatic encephalopathy (HCC) Procedures [facility] H[address] [id number] Phone: tel: Referral IDStatusReasonStart DateExpiration DateVisits RequestedVisits [id number] [facility] for visit Narrative* Auth/Cert - New RequestSpecialty Diagnoses / ProceduresReferred By ContactReferred To Contact [address] [address] Referral IDStatusReasonStkaw city DateExpiration DateVisits RequestedVisits AuthorizedNew Request/ [facility] for visit Narrative* Outpatient Procedure (Routine) - ClosedSpecialtyDiagnoses / ProceduresReferred By ContactReferred To Contact [facility] Diagnoses 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) Procedures ERCP ERCP BILIARY/PANC DUCT STENT EXCHANGE W/DIL&WIRE Ollis, Nick, PA-C [address] [place] [address] Phone: tel: fax: [facility] [address] [place] [address] Referral IDStatusBryantkaw city DateExpiration DateVisits RequestedVisits [id number] Auto-Generated Referral / [facility] for visit Narrative* Auth/Cert - New RequestSpecialty Diagnoses / ProceduresReferred By ContactReferred To Contact [address] [address] Referral IDStatusWendyFairfax DateExpiration DateVisits RequestedVisits AuthorizedNew Request/ [facility] Chief Complaint and Reason for Visit [...] LUMBAR W/O & W/CONTR Dmitri Thomas MD [address] [place] [address] Imaging [place] [address] Referral IDStatusReasonStart DateExpiration DateVisits RequestedVisits [id number] Request Auto-Generated Referral /[id number] / ProceduresReferred By ContactReferred To Contact IMAGING Diagnoses Low back pain, unspecified back pain laterality, unspecified chronicity, unspecified whether sciatica present Procedures MRI THORACIC SPINE WO/W IVCON MRI SPINAL CANAL THORACIC W/O & W/CONTR Dmitri Thomas MD [address] [place] [address] Mr [facility] [place] [address] Referral IDStatusReasonStart DateExpiration DateVisits RequestedVisits [id number] Request Auto-Generated Referral /[id number] / ProceduresReferred By ContactReferred To Contact IMAGING Diagnoses Low back pain, unspecified back pain laterality, unspecified chronicity, unspecified whether sciatica present Procedures MRI CERVICAL SPINE WO/W IVCON MRI SPINAL CANAL CERVICAL W/O & W/CONTR MATRL Dmitri Garg MD [address] [place] [address] Mr [facility] [place] [address] Referral IDStatusReasonStart DateExpiration DateVisits RequestedVisits [id number] Request Auto-Generated Referral [id number] / ProceduresReferred By ContactReferred To Contact IMAGING Diagnoses Liver mass Procedures MRI LIVER WO/W IVCON MRI ABDOMEN W/O & W/CONTRAST MATERIAL Dmitri Garg MD [address] [place] [address] Mr Imaging [place] [address] Referral IDStatusReasonStart DateExpiration DateVisits RequestedVisits [id number] Request Auto-Generated Referral [id number] / ProceduresReferred By ContactReferred To ContactPulmonary and Critical Care Medicine Diagnoses Pleural effusion associated with hepatic disorder Shortness of breath Lesion of liver greater than 1 cm in diameter Alcoholic cirrhosis of liver with ascites (HCC) Liver transplant candidate Metabolic dysfunction-associated steatotic liver disease (MASLD) Procedures CONSULT TO PULM/CRITICAL CARE OFFICE/OUTPATIENT [facility] 60 MINUTES Dmitri Garg MD [address] [place] [address] Referral IDStatusReasonStart DateExpiration DateVisits RequestedVisits [id number] PCP Requested Referral /[id number] / ProceduresReferred By ContactReferred To ContactCardiology Diagnoses Pleural effusion associated with hepatic disorder Shortness of breath Lesion of liver greater than 1 cm in diameter Alcoholic cirrhosis of liver with ascites (HCC) Liver transplant candidate Metabolic dysfunction-associated steatotic liver disease (MASLD) Procedures CONSULT TO CARDIOLOGY OFFICE/OUTPATIENT [facility] 60 MINUTES Dmitri Garg MD [address] [place] [address] Referral IDStatusReasonStart DateExpiration DateVisits RequestedVisits [id number] PCP Requested Referral /[id number] / ProceduresReferred By ContactReferred To ContactRESPIRATORY INSTITUTE Diagnoses Pleural effusion associated with hepatic disorder Shortness of breath Lesion of liver greater than 1 cm in diameter Alcoholic cirrhosis of liver with ascites (HCC) Liver transplant candidate Metabolic dysfunction-associated steatotic liver disease (MASLD) Procedures SPIROMETRY BASELINE ONLY SPMTRY W/VC EXPIRATORY EDY W/WO MXML VOL VNTJ Dmitri Garg MD [address] [place] [address] [facility] [place] [address] [place] [address] Referral IDStatusReasonStart DateExpiration DateVisits RequestedVisits [id number] Auto-Generated Referral /[id number] / ProceduresReferred By ContactReferred To [facility] Diagnoses Lesion of liver greater than 1 cm in diameter Alcoholic cirrhosis of liver with ascites (HCC) Liver transplant candidate Metabolic dysfunction-associated steatotic liver disease (MASLD) Procedures ECHO ECHO TTHRC R-T 2D W/WOM-MODE COMPL SPEC&COLR D Dmitri Garg MD [address] [place] [address] [facility] [place] [address] [place] [address] Referral IDStatusReasonStart DateExpiration DateVisits RequestedVisits [id number] Auto-Generated Referral 1/[id number] / ProceduresReferred By ContactReferred To ContactCT IMAGING Diagnoses Lesion of liver greater than 1 cm in diameter Alcoholic cirrhosis of liver with ascites (HCC) Liver transplant candidate Metabolic dysfunction-associated steatotic liver disease (MASLD) Procedures CT LIVER W IVCON CT ABDOMEN W/CONTRAST Dmitri Garg MD [address] [place] [address] Ct [facility] [place] [address] Referral IDStatusReasonStart DateExpiration DateVisits RequestedVisits [id number] Auto-Generated Referral [id number] / ProceduresReferred By ContactReferred To ContactCT IMAGING Diagnoses Pleural effusion associated with hepatic disorder Shortness of breath Lesion of liver greater than 1 cm in diameter Alcoholic cirrhosis of liver with ascites (HCC) Liver transplant candidate Metabolic dysfunction-associated steatotic liver disease (MASLD) Procedures CT CHEST WO IVCON DIAGNOSTIC COMPUTED TOMOGRAPHY THORAX W/O CNTRST Dmitri Garg MD [address] [place] [address] Ct Imaging [place] [address] Referral IDStatusReasonFair[place] DateExpiration DateVisits RequestedVisits [id number] Auto-Generated Referral [id number] / ProceduresReferred By ContactReferred To ContactNutrition Diagnoses Lesion of liver greater than 1 cm in diameter Alcoholic cirrhosis of liver with ascites (HCC) Liver transplant candidate Metabolic dysfunction-associated steatotic liver disease (MASLD) Procedures CONSULT TO NUTRITION THERAPY MEDICAL NUTRITION ASSMT&IVNTJ INDIV EACH 15 NM Dmitri Garg MD [address] [place] [address] Referral IDStatusReasonStkaw city DateExpiration DateVisits RequestedVisits [id number] PCP Requested Referral [id number] / ProceduresReferred By ContactReferred To ContactInfectious Diseases Diagnoses Lesion of liver greater than 1 cm in diameter Alcoholic cirrhosis of liver with ascites (HCC) Liver transplant candidate Metabolic dysfunction-associated steatotic liver disease (MASLD) Procedures CONSULT TO INFECTIOUS DISEASES OFFICE/OUTPATIENT [facility] 60 MINUTES Dmitri Garg MD [address] [place] [phone] Referral IDStatusReasonStart DateExpiration DateVisits RequestedVisits [id number] PCP Requested Referral [id number] / ProceduresReferred By ContactReferred To ContactAnesthesiology Diagnoses Pleural effusion associated with hepatic disorder Shortness of breath Lesion of liver greater than 1 cm in diameter Alcoholic cirrhosis of liver with ascites (HCC) Liver transplant candidate Metabolic dysfunction-associated steatotic liver disease (MASLD) Procedures CONSULT TO ANESTHESIOLOGY OFFICE/OUTPATIENT [facility] 60 MINUTES Dmitri Garg MD [address] [phone] Referral IDStatusReasonStart DateExpiration DateVisits RequestedVisits [id number] PCP Requested Referral [id number] / ProceduresReferred By ContactReferred To Contact Diagnoses Pleural effusion associated with hepatic disorder Shortness of breath Lesion of liver greater than 1 cm in diameter Encounter for screening for malignant neoplasm of prostate Alcoholic cirrhosis of liver with ascites (HCC) Liver transplant candidate Metabolic dysfunction-associated steatotic liver disease (MASLD) Procedures CONSULT TO HEPATOLOGY OFFICE/OUTPATIENT [facility] 60 MINUTES Dmitri Garg MD [address] [phone] Referral IDStatusReasonStart DateExpiration DateVisits RequestedVisits [id number] PCP Requested Referral [id number] / ProceduresReferred By ContactReferred To ContactHEART AND VASCULAR INSTITUTE Diagnoses Lesion of liver greater than 1 cm in diameter Alcoholic cirrhosis of liver with ascites (HCC) Liver transplant candidate Metabolic dysfunction-associated steatotic liver disease (MASLD) Procedures ECG COMPLETE ECG ROUTINE ECG W/LEAST 12 LDS W/I&R Dmitri Garg MD [address] [place] [address] [facility] [place] [address] [place] [address] Referral IDStatus[facility] DateExpiration DateVisits RequestedVisits [id number] Auto-Generated Referral /[id number] / ProceduresReferred By ContactReferred To ContactRadiology Diagnoses Cirrhosis of liver with ascites, unspecified hepatic cirrhosis type (CMS/HCC) Dizziness QUESADA (dyspnea on exertion) Other ascites Procedures Transthoracic Echo (TTE) Complete Xuan Espino PA [address] [facility] [address] [place] [address] [facility] [address] [place] [address] Phone: [phone] Referral IDStatus[facility] DateExpiration DateVisits RequestedVisits [id number] Perform Procedure /[id number] / ProceduresReferred By ContactReferred To ContactTRANSPLANT Diagnoses [...] VENOUS BLOOD VENIPUNCTURE Belia Medina MD, PhD [address] [place] [address] [facility] [address] [place] [phone] Referral IDStatusReasonStart DateExpiration DateVisits RequestedVisits [id number] Review PCP Requested Referral Financial Clearance Required - [employer] /[id number] Additional Source Comments Care Teams (unrecognized sec tion and content) Team Status: Active Member Role Status Dates Sanjay Robledo II MD Primary Care Provider Active Team Status: Inactive Member Role Status Dates Lex Carroll MD Attending Provider Active JUDITH [facility] Care ProviderActive Team Status: Inactive Member Role Status Dates Sanjay Robledo II MD Primary Care Provider Active [facility] ProviderActive Team Status: Inactive Member Role Status Dates Sanjay Robledo II MD Primary Care Provider Active Arlen Fitzpatrick ProviderActiveTeam MemberRelationshipSpecialty Start DateEnd Date Sanjay Robledo MD [address] [address] PCP - Aet04/17/22 Sanjay Robledo MD [address] [facility] [address] [place] [address] PCP - [facility]City [facility], [place] Medicine11/23/22Team MemberRelationshipSpecialtyStart Date End Date Sanjay Robledo MD [address] [facility] [address] [place] [address] PCP - Aet04/17/22 Sanjay Robledo MD [address] [facility] [address] [place] [address] PCP - GeneralCity Of Hope, [place] Medicine11/23/22 Team Status: Inactive Member Role Status [...] June 13, 2023 End: June 13, 2023Fredbarb Alves , DOAttending ProviderActiveStart: June 13, 2023 End: [...] December 12, 2023 End: December 12, 2023Patriciaeze [facility] , DOAttending ProviderActiveStart: December 12, 2023 End: December 12, 2023 Team Status: Inactive Member Role Status Dates Sanjay Robledo II MD Primary Care Provider Active Start: December 08, 2023 End: December 08, 2023Patriciaeze [facility] , DOAttending ProviderActiveStart: December 08, 2023 End: [...] MemberRelationshipSpecialtyStart DateEnd Date Sanjay Robledo MD [address] [facility] [address] [place] [address] PCP - [facility]04/17/22 Sanjay Robledo MD [address] [place] [address] [place] [address] [facility]/23/22Te MemberRelationshipSpecialtyStart Date End Date Sanjay Robledo MD [address] [facility] [address] [place] [address] [facility] Sanjay Robledo MD [address] [place] [address] [place] [address] PCP - GeneralInternal Medicine11/23/22Team MemberRelationshipSpecialtyStart Date End Date Sanjay Robledo MD [address] [place] [address] [place] [address] PCP - [employer]04/17/22 Sanjay Robledo MD [address] [place] [address] [place] [address] PCP - GeneralInternal Medicine11/23/22Te MemberRelationshipSpecialtyStart Date End Date Irena Johnson MD [address] [place] [address] [place] [address] WkupfdgovPttgtpzrtwahpluj50/26/24Te MemberRelationshipSpecialtyStart DateEnd Date Sanjay Robledo MD [address] [place] [address] [place] [address] PCP - [employer]04/17/22 Sanjay Robledo MD [address] [place] [address] [place] [address] PCP - GeneralInternal Medicine11/23/22Te MemberRelationshipSpecialtyStart Date End Date Irena Johnson MD [address] [place] [address] [place] [address] PkjobpvgqYhdowaynnnxtrmhl83/26/24Team MemberRelationshipSpecialtyStart DateEnd Date Irena Johnson MD [address] [place] [address] [place] [address] OginxtcubLgwtkrgwxuoiensl25/26/24Team MemberRelationshipSpecialtyStart DateEnd Date Sanjay Robledo MD [address] [place] [address] [place] [address] PCP - [facility]04/17/22 Sanjay Robledo MD [address] [place] [address] [place] [address] PCP - [facility]11/23/22Team MemberRelationshipSpecialtyStart Date End Date Sanjay Robledo MD [address] [place] [address] [place] [address] PCP - [facility]04/17/22 Sanjay Robledo MD [address] [place] [address] [place] [address] PCP - [facility]11/23/22Te MemberRelationshipSpecialtyStart Date End Date Sanjay Robledo MD [address] [place] [address] [place] [address] PCP - [facility]04/17/22 Sanjay Robledo MD [address] [place] [address] [place] [address] PCP - [facility]11/23/22Team MemberRelationshipSpecialtyStart Date End Date Irena Johnson MD [address] [place] [address] [place] [address] PlzxefovkIsddwbrnzebtvant76/26/24Team MemberRelationshipSpecialtyStart DateEnd Date Irena Johnson MD [address] [place] [address] [place] [address] ZylaqaxscFuyktaadzuumjytl53/26/24Te MemberRelationshipSpecialtyStart DateEnd Date Irena Johnson MD [address] [place] [address] [place] [address] EzfwectvjUuodhhbwhwgemzkk12/26/24Te MemberRelationshipSpecialtyStart DateEnd Date Irena Johnson MD [address] [place] [address] [place] [address] CtydqbeylAcmoftvmnwbhtwdp35/26/24Te MemberRelationshipSpecialtyStart DateEnd Date Irena Johnson MD [address] [facility]0 [place] [address] BmgvyhwljAmdrfqqqfeogpfwy18/26/24Te MemberRelationshipSpecialtyStart DateEnd Date Irena Johnson MD [address] [facility] [place] [address] PeejazeleIftuxotmdhgucljo03/26/24Te MemberRelationshipSpecialtyStart DateEnd Date Irena Johnson MD [address] [place] [address] [place] [address] FrytfdnmnQmwymzychkmcxdsi88/26/24Te MemberRelationshipSpecialtyStart DateEnd Date Irena Johnson MD [address] [place] [address] [place] [address] ShondflgdGnqackxtbpszfiba81/26/24Team MemberRelationshipSpecialtyStart DateEnd Date Irena Johnson MD [address] [place] [address] [place] [address] ZsrizedcxUmsxtwiimqvutthp49/26/24Team MemberRelationshipSpecialtyStart DateEnd Date Irena Johnson MD [address] [place] [address] [place] [address] IawkxnsfjRjpwqmzpvxjfzjjb26/26/24Te MemberRelationshipSpecialtyStart DateEnd Date Irena Johnson MD [address] [facility] [place] [address] PazzzqlfmWifehbmjqqqwxxrl66/26/24Team MemberRelationshipSpecialtyStart DateEnd Date Irena Johnson MD [address] [facility] [place] [address] UrrmvileoRpusdydtdpspptpd67/26/24Team MemberRelationshipSpecialtyStart DateEnd Date Irena Johnson MD [address] [place] [address] [place] [address] RjaaqltibQymxkdhyqbeunqyl44/26/24Team MemberRelationshipSpecialtyStart DateEnd Date Irena Johnson MD [address] [place] [address] [place] [address] YzsebyglgSujahtxtxeytbmgo06/26/24Team MemberRelationshipSpecialtyStart DateEnd Date Irena Johnson MD [address] [place] [address] [place] [address] KrsyulofcJtvbgrwyrzevjung12/26/24 Jade Arora MD [address] [place] [address] Primary Staff PhysicianCardiology05/02/24Team MemberRelationshipSpecialtyStart DateEnd Date Irena Johnson MD [address] [place] [address] [place] [address] KdyucyfhcSbwytvyiyptpjpkv39/26/24 Jade Arora MD [address] [place] [address] Primary Staff PhysicianCardiology05/02/24Team MemberRelationshipSpecialtyStart DateEnd Date Irena Johnson MD [address] [place] [address] [place] [address] NjjhzidhuRdzsarhjgefksqrc70/26/24 Jade Arora MD [address] [place] [address] Primary Staff PhysicianCardiology05/02/24Team MemberRelationshipSpecialtyStart DateEnd Date Irena Johnson MD [address] [facility] [address] [place] [address] UsmygfnurSczlvuueqlzmjsic26/26/24 Jade Arora MD [address] [place], [place] [address] Primary Staff PhysicianCardiology05/02/24Team MemberRelationshipSpecialtyStart DateEnd Date Irena Johnson MD [address] [place] [address] [place] [address] GwxtbyrmuEfsxizyiemocmjun88/26/24Te MemberRelationshipSpecialtyStart DateEnd Date Sanjay Robledo MD [address] [place] [address] [place] [address] PCP - [employer]04/17/22 Sanjay Robledo MD [address] [place] [address] [place] [address] PCP - GeneralInternal Medicine11/23/22Team MemberRelationshipSpecialtyStart Date End Date Irena Johnson MD [address] [place] [address] [place] [address] SeoejhulxOaylgllzeutzpcmw07/26/24 Jade Arora MD [address] [place] [address] Primary Staff PhysicianCardiology05/02/24Team MemberRelationshipSpecialtyStart DateEnd Date Sanjay Robledo MD [address] [place] [address] [place] [address] PCP - [employer]04/17/22 Sanjay Robledo MD 112 [facility] 110 [place] [address] PCP - GeneralInternal Medicine11/23/22Team MemberRelationshipSpecialtyStart Date End Date Irena Johnson MD [address] [place] [address] [place] [address] YmbwhjbhtHjzqoxtypvagdqzs85/26/24 Jade Arora MD [address] [place], [place] [address] Primary Staff PhysicianCardiology05/02/24Te MemberRelationshipSpecialtyStart DateEnd Date Irena Johnson MD [address] [place] [address] [place] [address] SoupqrxeqCvspuqncymjxvtjb65/26/24 Jade Arora MD [address] [place] [address] Primary Staff PhysicianCardiology05/02/24Te MemberRelationshipSpecialtyStart DateEnd Date Irena Johnson MD [address] [place] [address] [place] [address] DrnmdpdjmTcxfhsfciyeiklks31/26/24 Jade Arora MD [address] [place] [address] Primary Staff PhysicianCardiology05/02/24Team MemberRelationshipSpecialtyStart DateEnd Date Irena Johnson MD [address] [place] [address] [place] [address] CdwlzrcreXipqyvlxwcpixoey92/26/24 Jdae Arora MD [address] [place] [address] Primary Staff PhysicianCardiology05/02/24Team MemberRelationshipSpecialtyStart DateEnd Date Irena Johnson MD [address] [place] [address] [place] [address] TkwaykybuTceqjsqigcgxnkxk66/26/24 Jade Arora MD [address] [place] [address] Primary Staff PhysicianCardiology05/02/24Team MemberRelationshipSpecialtyStart DateEnd Date Irena Johnson MD [address] [place] [address] [place] [address] DzhjterxjIfykotvvzphlapsi42/26/24 Jade Arora MD [address] [place] [address] Primary Staff PhysicianCardiology05/02/24Team MemberRelationshipSpecialtyStart DateEnd Date Irena Johnson MD [address] [place] [address] [place] [address] OewjqbdutYfqvdbdpjjivpzvv10/26/24 Jade Arora MD [address] [place] [address] Primary Staff PhysicianCardiology05/02/24Team MemberRelationshipSpecialtyStart DateEnd Date Irena Johnson MD [address] [place] [address] [place] [address] TvqgioiwyCbfftigmiowkykra49/26/24Team MemberRelationshipSpecialtyStart DateEnd Date Sanjay Robledo II, MD [address] [facility] 110 [place] [address] PCP - GeneralInternal Medicine05/28/24 Irena Johnson MD [address] [place] [address] [place] [address] ZrufqbpamBzvjnkecshitbroc18/26/24 Jade Arora MD [address] [place] [address] Primary Staff PhysicianCardiology05/02/24Team MemberRelationshipSpecialtyStart DateEnd Date Sanjay Robledo II, MD [address] [place] [address] [place] [address] PCP - GeneralInternal Medicine05/28/24 Irena Johnson MD [address] [place] [address] [place] [address] OnvesiconTplpwmhcizrkyskm91/26/24 Jade Arora MD [address] [place] [address] Primary Staff PhysicianCardiology05/02/24Team MemberRelationshipSpecialtyStart DateEnd Date Sanjay Robledo II, MD [address] [facility] 110 [place] [address] PCP - GeneralInternal Medicine05/28/24 Irena Johnson MD [address] [place] [address] [place] [address] MmqjqrfwdVeypqxikjdtrsnaa50/26/24 Jade Arora MD [address] [place] [address] Primary Staff PhysicianCardiology05/02/24Team MemberRelationshipSpecialtyStart DateEnd Date Sanjay Robledo II, MD [address] [address] PCP - GeneralInternal Medicine05/28/24 Irena Johnson MD [address] [place] [address] [place] [address] XvsffylvtWrahlsopyifuqzek20/26/24 Jade Arora MD [address] [place] [address] Primary Staff PhysicianCardiology05/02/24Team MemberRelationshipSpecialtyStart DateEnd Date Sanjay Robledo II, MD [address] [place] [address] [place] [address] PCP - GeneralInternal Medicine05/28/24 Irena Johnson MD [address] [place] [address] [place] [address] EcgymrsaiXaowuzxklskbxeas07/26/24 Jade Arora MD [address] [place] [address] Primary Staff PhysicianCardiology05/02/24Team MemberRelationshipSpecialtyStart DateEnd Date Sanjay Robledo II, MD [address] [facility] [address] [place] [address] PCP - GeneralInternal Medicine05/28/24 Irena Johnson MD [address] [place] [address] [place] [address] UddxjyrwyAhwgzimgjdxfiywp88/26/24 Jade Arora MD [address] [place] [address] Primary Staff PhysicianCardiology05/02/24Team MemberRelationshipSpecialtyStart DateEnd Date Sanjay Robledo II, MD [address] [facility] [address] [place] [address] PCP - GeneralInternal Medicine05/28/24 Irena Johnson MD [address] [place] [address] [place] [address] DvbmfdbagZzalesqdspicowhy86/26/24 Jade Arora MD [address] [place] [address] Primary Staff PhysicianCardiology05/02/24Team MemberRelationshipSpecialtyStart DateEnd Date Sanjay Robledo MD [address] [facility] [address] [place] [address] PCP - [employer]04/17/22 Sanjay Robledo MD [address] [facility] [address] [place] [address] PCP - GeneralInternal Medicine11/23/22Team MemberRelationshipSpecialtyStart Date End Date Sanjay Robledo II, MD [address] [facility] [address] [place] [address] PCP - GeneralInternal Medicine05/28/24 Irena Johnson MD [address] [place] [address] [place] [address] KgzfodpliWzjfkofxxxexdokn14/26/24 Jade Arora MD [address] [place] [address] Primary Staff PhysicianCardiology05/02/24Team MemberRelationshipSpecialtyStart DateEnd Date Sanjay Robledo II, MD [address] [facility] [address] [place] [address] PCP - GeneralInternal Medicine05/28/24 Irena Johnson MD [address] [place] [address] [place] [address] WeggjnasuNbqwykskozevqjxn11/26/24 Jade Arora MD [address] [place] [address] Primary Staff PhysicianCardiology05/02/24Team MemberRelationshipSpecialtyStart DateEnd Date Sanjay Robledo II, MD [address] [facility] [address] [place] [address] PCP - GeneralInternal Medicine05/28/24 Irena Johnson MD [address] [place] [address] [place] [address] EyikizlywJzncoauxhwdrxwxa26/26/24 Jade Arora MD [address] [place], [place] [address] Primary Staff PhysicianCardiology05/02/24Te MemberRelationshipSpecialtyStart DateEnd Date Sanjay Robledo II, MD [address] [facility] [address] [place] [address] PCP - GeneralInternal Medicine05/28/24 Irena Johnson MD [address] [place] [address] [place] [address] LwdwjhhgaCfdlwcjgggqrsjsc20/26/24 Jade Arora MD [address] [place], [place] [address] Primary Staff PhysicianCardiology05/02/24Team MemberRelationshipSpecialtyStart DateEnd Date Sanjay Robledo II, MD [address] [facility] [address] [place] [address] PCP - GeneralInternal Medicine05/28/24 Irena Johnson MD [address] [place] [address] [place] [address] GfaemrnccAibuymsalfhuktez28/26/24 Jade Arora MD [address] [place] [address] Primary Staff PhysicianCardiology05/02/24Team MemberRelationshipSpecialtyStart DateEnd Date Sanjay Robledo II, MD [address] [facility] [address] [place] [address] PCP - GeneralInternal Medicine05/28/24 Irena Johnson MD [address] [place] [address] [place] [address] CzfcqrcyqBiwftfidjudxmvmb64/26/24 Jade Arora MD [address] [place] [address] Primary Staff PhysicianCardiology05/02/24Team MemberRelationshipSpecialtyStart DateEnd Date Sanjay Robledo II, MD [address] [facility] [address] [place] [address] PCP - GeneralInternal Medicine05/28/24 Irena Johnson MD [address] [place] [address] [place] [address] LwrcmorfyFpyhkysrnunjkesz02/26/24 Jade Arora MD [address] [place] [address] Primary Staff PhysicianCardiology05/02/24Team MemberRelationshipSpecialtyStart DateEnd Date Sanjay Robledo II, MD [address] [facility] 110 [place] [address] PCP - GeneralInternal Medicine05/28/24 Irena Johnson MD [address] [place] [address] [place] [address] XcnrhcsysGsitagfgrggreszc98/26/24 Jade Arora MD [address] [place], [place] [address] Primary Staff PhysicianCardiology05/02/24Te MemberRelationshipSpecialtyStart DateEnd Date Sanjay Robledo II, MD [address] [facility] [address] [place] [address] PCP - GeneralInternal Medicine05/28/24 Irena Johnson MD [address] [place] [address] [place] [address] GtrdqssjnPluxpqcyfzpymtkq15/26/24 Jade Arora MD [address] [place] [place] [address] Primary Staff PhysicianCardiology05/02/24 Team Status: Inactive Member Role Status Dates Irena Johnson MD Attending Provider Active Start : June 19, 2024 End: June 19, 2024Sanjay Robledo II [facility] ProviderActiveStart: June 19, 2024 End: June 19, 2024Team MemberRelationshipSpecialtyStart DateEnd Date Sanjay Robledo II, MD [address] [facility] [address] [place] [address] PCP - GeneralInternal Medicine05/28/24 Irena Johnson MD [address] [place] [address] [place] [address] CbocsttqtVrhqmvvqutoepznr22/26/24 Jade Arora MD [address] [place] [address] Primary Staff PhysicianCardiology05/02/24Team MemberRelationshipSpecialtyStart DateEnd Date Sanjay Robledo II, MD [address] [facility] [address] [place] [address] PCP - GeneralInternal Medicine05/28/24 Irena Johnson MD [address] [place] [address] [place] [address] LuktrpqaeRsvefxbkpmzjvpix77/26/24 Jade Arora MD [address] [place] [address] Primary Staff PhysicianCardiology05/02/24Team MemberRelationshipSpecialtyStart DateEnd Date Sanjay Robledo II, MD [address] [place] [address] [place] [address] PCP - GeneralInternal Medicine05/28/24 Irena Johnson MD [address] [place] [address] [place] [address] KjlicotztSbongrzqhcbuzzqo18/26/24 Jade Arora MD [address] [place], [place] [address] Primary Staff PhysicianCardiology05/02/24Team MemberRelationshipSpecialtyStart DateEnd Date Sanjay Robledo II, MD [address] [facility] [address] [place] [address] PCP - GeneralInternal Medicine05/28/24 Irena Johnson MD [address] [place] [address] [place] [address] MtoyuxyliIyebukycqtqddsce43/26/24 Jade Arora MD [address] [place] [address] Primary Staff PhysicianCardiology05/02/24Team MemberRelationshipSpecialtyStart DateEnd Date Sanjay Robledo II, MD [address] [facility] [address] [place] [address] PCP - GeneralInternal Medicine05/28/24 Irena Johnson MD [address] [place] [address] [place] [address] AafgvazaxHjkbkvptwjuznszn61/26/24 Jade Arora MD [address] [place] [address] Primary Staff PhysicianCardiology05/02/24Team MemberRelationshipSpecialtyStart DateEnd Date Sanjay Robledo II, MD [address] [facility] [address] [place] [address] PCP - GeneralInternal Medicine05/28/24 Irena Johnson MD [address] [place] [address] [place] [address] TlpahogicEkdieziwbnnjrwkn73/26/24 Jade Arora MD [address] [place] [address] Primary Staff PhysicianCardiology05/02/24Team MemberRelationshipSpecialtyStart DateEnd Date Sanjay Robledo II, MD [address] [facility] [address] [place] [address] PCP - GeneralInternal Medicine05/28/24 Irena Johnson MD [address] [place] [address] [place] [address] VwelgxylbSgaypowptcfpmaco15/26/24 Jade Arora MD [address] [place] [address] Primary Staff PhysicianCardiology05/02/24 Team Status: Inactive Member Role Status Dates Sanjay Robledo II MD Primary Care Provider Active Start: July 30, 2024 End: July 30, 2024[facility] ProviderActiveStart: July 30, 2024 End: July 30, 2024Team MemberRelationshipSpecialtyStart DateEnd Date Sanjay Robledo II, MD [address] [facility] [address] [place] [address] [facility] - [facility]05/28/24 Irena Johnson MD [address] [place] [address] [place] [address] HdbqplgczZtxjgdbofwnnozzz15/26/24 Jade Arora MD [address] [place] [address] Primary Staff PhysicianCardiology05/02/24Team MemberRelationshipSpecialtyStart DateEnd Date Sanjay Robledo II, MD [address] [facility] [address] [place] [address] PCP - [facility]05/28/24 Irena Johnson MD [address] [place] [address] [place] [address] AzgrkhnjtAhjebhlgonwlagvi24/26/24 Jade Arora MD [address] [place] [address] Primary Staff PhysicianCardiology05/02/24Team MemberRelationshipSpecialtyStart DateEnd Date Sanjay Robledo II, MD [address] [place] [address] [place] [address] PCP - GeneralInternal Medicine05/28/24 Irena Johnson MD [address] [place] [address] [place] [address] XrqjcjescCddsnbtdtfbjimau25/26/24 Jade Arora MD [address] [place] [address] Primary Staff PhysicianCardiology05/02/24Team MemberRelationshipSpecialtyStart DateEnd Date Sanjay Robledo II, MD [address] [facility] [address] [place] [address] PCP - GeneralInternal Medicine05/28/24 Irena Johnson MD [address] [place] [address] [place] [address] RodcstwqzMfyzhmcekjdrdeqe14/26/24 Jade Arora MD [address] [place] [address] Primary Staff PhysicianCardiology05/02/24Team MemberRelationshipSpecialtyStart DateEnd Date Sanjay Robledo II, MD [address] [facility] [address] [place] [address] PCP - GeneralInternal Medicine05/28/24 Irena Johnson MD [address] [place] [address] [place] [address] CeqwqqcocRkricpiyglzmdvhi26/26/24 Jade Arora MD [address] [place] [address] Primary Staff PhysicianCardiology05/02/24Team MemberRelationshipSpecialtyStart DateEnd Date Sanjay Robledo MD [address] [place] [address] [place] [address] PCP - [employer]04/17/22 Sanjay Robledo MD [address] [facility] [address] [place] [address] PCP - GeneralInternal Medicine11/23/22Team MemberRelationshipSpecialtyStart Date End Date Sanjay Robledo II, MD [address] [facility] [address] [place] [address] PCP - GeneralInternal Medicine05/28/24 Irena Johnson MD [address] [place] [address] [place] [address] WzhoxrsnxWnsktckfrdqybvtl21/26/24 Jade Arora MD [address] [place] [address] Primary Staff PhysicianCardiology05/02/24Team MemberRelationshipSpecialtyStart DateEnd Date Sanjay Robledo II, MD [address] [facility] [address] [place] [address] PCP - GeneralInternal Medicine05/28/24 Irena Johnson MD [address] [place] [address] [place] [address] EqaoozebfBvxvoosfkfklxonb46/26/24 Jade Arora MD [address] [place] [address] Primary Staff PhysicianCardiology05/02/24Team MemberRelationshipSpecialtyStart DateEnd Date Sanjay Robledo II, MD [address] [facility] [address] [place] [address] PCP - GeneralInternal Medicine05/28/24 Irena Johnson MD [address] [place] [address] [place] [address] NbwakvwjtOsgjfenipjjuqcam92/26/24 Jade Arora MD [address] [place] [address] Primary Staff PhysicianCardiology05/02/24Team MemberRelationshipSpecialtyStart DateEnd Date Sanjay Robledo MD [address] [facility] [address] [place] [address] PCP - [employer]04/17/22 Sanjay Robledo MD [address] [facility] [address] [place] [address] PCP - GeneralInternal Medicine11/23/22Team MemberRelationshipSpecialtyStart Date End Date Sanjay Robledo II, MD [address] [facility] [address] [place] [address] PCP - GeneralInternal Medicine05/28/24 Irena Johnson MD [address] [place] [address] [place] [address] IkadumtboPdzbrfyspqtzsusx08/26/24 Jade Arora MD [address] [place], [place] [address] Primary Staff PhysicianCardiology05/02/24Team MemberRelationshipSpecialtyStart DateEnd Date Sanjay Robledo MD [address] [place] [address] [place] [address] PCP - [employer]04/17/22 Sanjay Robledo MD [address] [facility] [address] [place] [address] PCP - GeneralInternal Medicine11/23/22Team MemberRelationshipSpecialtyStart Date End Date Sanjay Rboledo II, MD [address] [facility] [address] [place] [address] PCP - GeneralInternal Medicine05/28/24 Irena Johnson MD [address] [place] [address] [place] [address] KfcrhqbknYsogonkyjfculnwh73/26/24 Jade Arora MD [address] [place], [place] [address] Primary Staff PhysicianCardiology05/02/24Team MemberRelationshipSpecialtyStart DateEnd Date Sanjay Robledo II, MD [address] [facility] [address] [place] [address] PCP - GeneralInternal Medicine05/28/24 Irena Johnson MD [address] [place] [address] [place] [address] OyazebuegZkedxmxbctwclhci93/26/24 Jade Arora MD [address] [place] [address] Primary Staff PhysicianCardiology05/02/24Team MemberRelationshipSpecialtyStart DateEnd Date Sanjay Robledo II, MD [address] [facility] [address] [place] [address] PCP - GeneralInternal Medicine05/28/24 Irena Johnson MD [address] [place] [address] [place] [address] EakgdzrgiTxerobykbomohuhe67/26/24 Jade Arora MD [address] [place] [address] Primary Staff PhysicianCardiology05/02/24 Carina Ziegler, LEO [facility] [address] [place] [address] Registered NurseTransplant Center09/17/24Team MemberRelationshipSpecialtyStart DateEnd Date Sanjay Robledo II, MD [address] [facility] [address] [place] [address] PCP - GeneralInternal Medicine05/28/24 Irena Johnson MD [address] [place] [place] [address] KkoflcmtqLwmngepoqzyfeket75/26/24 Jade Arora MD [address] [place] [address] Primary Staff PhysicianCardiology05/02/24 Carina Ziegler, LEO [facility] [address] [place] [address] Registered NurseTransplant [place]09/17/24Team MemberRelationshipSpecialtyStart DateEnd Date Sanjay Robledo II, MD [address] [facility] [address] [place] [address] PCP - GeneralInternal Medicine05/28/24 Irena Johnson MD [address] [place] [address] [place] [address] IidcrsealXuofxruuheedgyya69/26/24 Jade Arora MD [address] [place] [address] Primary Staff PhysicianCardiology05/02/24 Carina Ziegler RN [facility] [address] [place] [address] Registered NurseTransplant [place]09/17/24Team MemberRelationshipSpecialtyStart DateEnd Date Sanjay Robledo II, MD [address] [facility] [address] [place] [address] PCP - GeneralInternal Medicine05/28/24 Irena Johnson MD [address] [place] [address] [place] [phone] QewcrnhttJvjlcanmcqaidptg51/26/24 Jade Arora MD [address] [place] [address] Primary Staff PhysicianCardiology05/02/24 Carina Ziegler, RN [facility] [address] [place] [address] Registered NurseTransplant Center09/17/24Team MemberRelationshipSpecialtyStart DateEnd Date Sanjay Robledo II, MD [address] [facility] [address] [place] [address] PCP - GeneralInternal Medicine05/28/24 Irena Johnson MD [address] [place] [address] [place] [phone] FyuguwmhgIccxruvnqgcyyfno99/26/24 Jade Arora MD [address] [place] [address] Primary Staff PhysicianCardiology05/02/24 Carina Ziegler, RN [facility] [address] [place] [address] Registered NurseTransplant [place]09/17/24Team MemberRelationshipSpecialtyStart DateEnd Date Sanjay Robledo II, MD [address] [place] [address] [address] [place] [address] PCP - GeneralInternal Medicine05/28/24 Irena Johnson MD [address] [place] [address] [place] [phone] BezucuywrKffgouacmkozzdjf10/26/24 Jade Arora MD [address] [place] [address] Primary Staff PhysicianCardiology05/02/24 Carina Ziegler, ELO [facility] [address] [place] [address] Registered NurseTransplant Center09/17/24Team MemberRelationshipSpecialtyStart DateEnd Date Sajnay Robledo II, MD [address] [address] PCP - GeneralInternal Medicine05/28/24 Irena Johnson MD [address] [place] [address] [place] [phone] YouqzdulrYzuqwsmpekkrxwuf15/26/24 Jade Arora MD [address] [place] [address] Primary Staff PhysicianCardiology05/02/24 Carina Ziegler RN [facility] [address] [place] [address] Registered NurseTransplant [place]09/17/24Team MemberRelationshipSpecialtyStart DateEnd Date Sanjay Robledo II, MD [address] [place] [address] PCP - GeneralInternal Medicine05/28/24 Irena Johnson MD [address] [place] [address] [place] [address] UdyephmikClfyulrdimpvvpby03/26/24 Jade Arora MD [address] [place] [address] Primary Staff PhysicianCardiology05/02/24 Carina Ziegler, RN [facility] [address] [place] [address] Registered NurseTransplant Center09/17/24Team MemberRelationshipSpecialtyStart DateEnd Date Sanjay Robledo II, MD [address] [place] [address] [address] [place] [address] PCP - GeneralInternal Medicine05/28/24 Irena Johnson MD [address] [place] [address] [place] [phone] ZihozkjfpZndpzrrjjxceeahs93/26/24 Jade Arora MD [address] [place] [address] Primary Staff PhysicianCardiology05/02/24 Carina Ziegler RN [facility] [address] [place] [address] Registered NurseTransplant Center09/17/24Te MemberRelationshipSpecialtyStart DateEnd Date Sanjay Robledo II, MD [address] [place] [address] PCP - GeneralInternal Medicine05/28/24 Irena Johnson MD [address] [place] [address] [place] [address] LqzqnqrcvTunjyulfvjhbmsmo17/26/24 Jade Arora MD [address] [place] [address] Primary Staff PhysicianCardiology05/02/24 Carina Ziegler, RN [facility] [address] [place] [address] Registered NurseTransplant Center09/17/24Team MemberRelationshipSpecialtyStart DateEnd Date Sanjay Robledo II, MD [address] [facility] [address] [place] [address] PCP - GeneralInternal Medicine05/28/24 Irena Johnson MD [address] [place] [place] [address] OaatztzovBvzwmjqniewftdwe86/26/24 Jade Arora MD [address] [place] [address] Primary Staff PhysicianCardiology05/02/24 Carina Ziegler RN [facility] [address] [place] [address] Registered NurseTransplant [place]09/17/24Team MemberRelationshipSpecialtyStart DateEnd Date Sanjay Robledo MD [address] [facility] [address] [place] [address] PCP - [employer]etna04/17/22 Sanjay Robledo MD [address] [facility] [address] [place] [address] PCP - GeneralInternal Medicine11/23/22Team MemberRelationshipSpecialtyStart Date End Date Sanjay Robledo II, MD [address] [facility] [address] [place] [address] PCP - GeneralInternal Medicine05/28/24 Irena Johnson MD [address] [place] [place] [address] XbgtkxxcfVplyghynflwmcdwq40/26/24 Jade Arora MD [address] [place] [address] Primary Staff PhysicianCardiology05/02/24 Carina Ziegler, RN [facility] [address] [place] [address] Registered NurseTransplant Center09/17/24Team MemberRelationshipSpecialtyStart DateEnd Date Sanjay Robledo II, MD 112 [facility] [address] [place] [address] PCP - GeneralInternal Medicine05/28/24 Irena Johnson MD [address] [place] [address] [place] [address] OwkggagcvTjjelwanqadkzboe80/26/24 Jade Arora MD [address] [place] [address] Primary Staff PhysicianCardiology05/02/24 Carina Ziegler, RN [facility] [address] [place] [address] Registered NurseTransplant [place]09/17/24Team MemberRelationshipSpecialtyStart DateEnd Date Sanjay Robledo II, MD [address] [address] PCP - GeneralInternal Medicine05/28/24 Irena Johnson MD [address] [place] [address] [place] [address] UyqwarnwuKbfpkxdmtzflhgjd57/26/24 Jade Arora MD [address] [place] [address] Primary Staff PhysicianCardiology05/02/24 Carina Ziegler, LEO [facility] [address] [place] [address] Registered NurseTransplant Center09/17/24Team MemberRelationshipSpecialtyStart DateEnd Date Sanjay Robledo MD [address] [facility] [address] [place] [address] PCP - Aetna04/17/22 Sanjay Robledo MD [address] [facility] [address] [place] [address] PCP - GeneralInternal Medicine11/23/22Team MemberRelationshipSpecialtyStart Date End Date Sanjay Robledo II, MD [address] [facility] [address] [place] [address] PCP - GeneralInternal Medicine05/28/24 Irena Johnson MD [facility] [address] [place] [phone] UqqhadgyrLcbdhyvylqcwfejm93/26/24 Jade Arora MD [address] [place] [address] Primary Staff PhysicianCardiology05/02/24 Carina Ziegler, LEO [facility] [address] [facility] [address] Registered NurseTransplant Center09/17/24Team MemberRelationshipSpecialtyStart DateEnd Date Sanjay Robledo II, MD [address] [facility] [address] [place] [address] PCP - GeneralInternal Medicine05/28/24 Irena Johnson MD [address] [place] [address] [place] [address] EwukucfonPtevnwrxvlfdousj81/26/24 Jade Arora MD [address] [place] [address] Primary Staff PhysicianCardiology05/02/24 Carina Ziegler, RN [facility] [address] [facility] [place] [address] Registered NurseTransplant Center09/17/24Team MemberRelationshipSpecialtyStart DateEnd Date Sanjay Robledo II, MD 112 [facility] [address] [place] [address] PCP - GeneralInternal Medicine05/28/24 Irena Johnson MD [address] [place] [address] [place] [phone] EfzzgwwvhBxctmemslaukjzbv47/26/24 Jade Arora MD [address] [place] [address] Primary Staff PhysicianCardiology05/02/24 Carina Ziegler, RN [facility] [address] [place] [address] Registered NurseTransplant Center09/17/24Team MemberRelationshipSpecialtyStart DateEnd Date Sanjay Robledo II, MD 112 [facility] [address] [place] [address] PCP - GeneralInternal Medicine05/28/24 Irena Johnson MD [address] [place] [address] [place] [address] XahjwfpkqPrttiwpywhcqwllw21/26/24 Jade Arora MD [address] [place] [address] Primary Staff PhysicianCardiology05/02/24 Carina Ziegler, RN [facility] [address] [place] [address] Registered NurseTransplant Center09/17/24Team MemberRelationshipSpecialtyStart DateEnd Date Sanjay Robledo II, MD 112 [facility] [address] [place] [address] PCP - GeneralInternal Medicine05/28/24 Irena Johnson MD [address] [facility] [address] [place] [address] JvbkmyiyzZqgghwhathgcpblq74/26/24 Jade Arora MD [address] [place] [address] Primary Staff PhysicianCardiology05/02/24 Carina Ziegler, RN [facility] [address] [place] [address] Registered NurseTransplant [place]09/17/24Team MemberRelationshipSpecialtyStart DateEnd Date Sanjay Robledo II, MD 112 [facility] [address] [place] [address] PCP - GeneralInternal Medicine05/28/24 Irena Johnson MD [address] [place] [address] [place] [phone] DihhldtbyKaizgeiwmkvtavbx94/26/24 Jade Arora MD [address] [place], [place] [address] Primary Staff PhysicianCardiology05/02/24 Carina Ziegler, LEO [facility] [address] [place] [address] Registered NurseTransplant Center09/17/24Team MemberRelationshipSpecialtyStart DateEnd Date Sanjay Robledo MD [address] [facility] [address] [place] [address] PCP - Aetna04/17/22 Sanjay Robledo MD [address] [place] [address] [place] [address] PCP - GeneralInternal Medicine11/23/22Team MemberRelationshipSpecialtyStart Date End Date Sanjay Robledo II, MD [address] [facility] [address] [place] [address] PCP - GeneralInternal Medicine05/28/24 Irena Johnson MD 3000 [facility] [address] [place] [phone] QevqodvrvRtbbqcpuokcisaoe61/26/24 Jade Arora MD [address] [place], [place] [address] Primary Staff PhysicianCardiology05/02/24 Carina Ziegler, LEO [facility] [address] [place] [address] Registered NurseTransplant Center09/17/24 [place] [address] [place] [address] PhysicianNephrology11/19/24Team MemberRelationshipSpecialtyStart DateEnd Date Sanjay Robledo II, MD [address] [place] [address] [place] [address] PCP - GeneralInternal Medicine05/28/24 Irena Johnson MD 3000 [facility] [address] [facility] [place] [phone] HthswmwwsYanmjeaefpsbxslo74/26/24 Jade Arora MD [address] [place] [address] Primary Staff PhysicianCardiology05/02/24 Carina Ziegler, RN [facility] [address] [place] [address] Registered NurseTransplant Center09/17/24 [place] [address] [place] [address] PhysicianNephrology11/19/24 Team Status: Inactive Member Role Status Dates Albin Suarez , Attending Provider Active S tart: November 19, 2024 End: November 19, 2024Team MemberRelationshipSpecialtyStart DateEnd Date Sanjay Robledo MD [address] [facility] [address] [place] [address] PCP - Aetna04/17/22 Sanjay Robledo MD [address] [place] [address] [place] [address] PCP - GeneralInternal Medicine11/23/22Team MemberRelationshipSpecialtyStart Date End Date Sanjay Robledo MD [address] [facility] [address] [place] [address] PCP - Aetna04/17/22 Sanjay Robledo MD [address] [facility] [address] [place] [address] PCP - GeneralInternal Medicine11/23/22Team MemberRelationshipSpecialtyStart Date End Date Sanjay Robledo II, MD [address] [facility] [address] [place] [address] PCP - GeneralInternal Medicine05/28/24 Irena Johnson MD 3000 [facility] [address] [place] [address] DrwzhlbkkDbgbttioqcvxpfgb18/26/24 Jade Arora MD [address] [place] [address] Primary Staff PhysicianCardiology05/02/24 Carina Ziegler, LEO [facility] [address] [place] [address] Registered NurseTransplant Center09/17/24 [place] [address] [facility] [address] [place] [address] PhysicianNephrology11/19/24Team MemberRelationshipSpecialtyStart DateEnd Date Sanjay Robledo MD [address] [facility] [address] [place] [address] PCP - Aetna04/17/22 Sanjay Robledo MD [address] [facility] [address] [place] [address] PCP - GeneralInternal Medicine11/23/22Team MemberRelationshipSpecialtyStart Date End Date Sanjay Robledo MD [address] [facility] [address] [place] [address] PCP - Aetna04/17/22 Sanjay Robledo MD [address] [facility] [address] [place] [address] PCP - GeneralInternal Medicine11/23/22Team MemberRelationshipSpecialtyStart Date End Date Sanjay Robledo II, MD [address] [facility] [address] [place] [address] PCP - GeneralInternal Medicine05/28/24 Irena Johnson MD 3000 [facility] [address] [place] [address] HdrmaybwjEvcijbzbzeagmrsa65/26/24 Jade Arora MD [address] [place], [place] [address] Primary Staff PhysicianCardiology05/02/24 Carina Ziegler RN [facility] [address] [place] [address] Registered NurseTransplant Center09/17/24 [place] [address] [facility] [address] [place], [place] [address] PhysicianNephrology11/19/24Team MemberRelationshipSpecialtyStart DateEnd Date Sanjay Robledo II, MD [address] [facility] [address] [place] [address] PCP - GeneralInternal Medicine05/28/24 Irena Johnson MD [address] [place] [address] [place] [address] VrdrqconeQleoxdraskajihll33/26/24 Jade Arora MD [address] [place] [address] Primary Staff PhysicianCardiology05/02/24 Carina Ziegler RN [facility] [address] [place] [address] Registered NurseTransplant Center09/17/24 [place] [address] [facility] [address] [place], [place] [address] PhysicianNephrology11/19/24Team MemberRelationshipSpecialtyStart DateEnd Date Sanjay Robledo MD [address] [facility] [address] [place] [address] PCP - Aetna04/17/22 Sanjay Robledo MD [address] [facility] [address] [place] [address] PCP - GeneralInternal Medicine11/23/22Team MemberRelationshipSpecialtyStart Date End Date Sanjay Robledo II, MD [address] [facility] [address] [place] [address] PCP - GeneralInternal Medicine05/28/24 Irena Johnson MD [address] [place] [address] [place] [address] KlryllrbcKirsvlifsmpmsasn78/26/24 Jade Arora MD [address] [place] [address] Primary Staff PhysicianCardiology05/02/24 Carina Ziegler RN [facility] [address] [place] [address] Registered NurseTransplant Center09/17/24 [place] [address] [address] [place] [address] PhysicianNephrology11/19/24Team MemberRelationshipSpecialtyStart DateEnd Date Sanjay Robledo MD [address] [place] [address] [place] [address] PCP - Aetna04/17/22 Sanjay Robledo MD [address] [place] [address] [place] [address] PCP - GeneralInternal Medicine11/23/22Team MemberRelationshipSpecialtyStart Date End Date Sanjay Robledo MD [address] [place] [address] [place] [address] PCP - Aetna04/17/22 Sanjay Robledo MD [address] [place] [address] [place] [address] PCP - GeneralInternal Medicine11/23/22Team MemberRelationshipSpecialtyStart Date End Date Sanjay Robledo MD [address] [place] [address] [place] [address] PCP - Aetna04/17/22 Sanjay Robledo MD [address] [place] [address] [place] [address] PCP - GeneralInternal Medicine11/23/22Team MemberRelationshipSpecialtyStart Date End Date Sanjay Robledo MD [address] [facility] [address] [place] [address] PCP - Aetna04/17/22 Sanjay Robledo MD [address] [facility] [address] [place] [address] PCP - GeneralInternal Medicine11/23/22Team MemberRelationshipSpecialtyStart Date End Date Sanjay Robledo MD [address] [facility] [address] [place] [address] PCP - Aet04/17/22 Sanjay Robledo MD [address] [facility] [address] [place] [address] PCP - GeneralCity Of Hope, [place]nal Medicine11/23/22 REASON FOR VISIT (unrecogniz ed section and content) ReasonCommentspainful hemorrhoidSpecialtyDiagnoses / ProceduresReferred By ContactReferred To ContactGeneral Surgery Diagnoses Unspecified hemorrhoids Procedures [place] OFFICE/OUTPATIENT NEW HIGH MDM 60 MINUTES Rick Ortega MD [address] [facility] [address] [place] [address] [place] [address] [facility] [address] [place] [address] Referral IDStatusReasonStart DateExpiration DateVisits RequestedVisits [id number] Specialty Services Required /[id number] increasingly worse and wants to discuss surgeryAnal [...] W/WO MXML VOL VNTJ Dmitri Garg MD [address] [place] [address] [address] [place] [address] [place] [address] Referral IDStatusReasonStart DateExpiration DateVisits RequestedVisits [id number] Auto-Generated Referral /[id number] EducationAssessmentSpecialtyDiagnoses / ProceduresReferred By ContactReferred To ContactNutrition Diagnoses Lesion of liver greater than 1 cm in diameter Alcoholic cirrhosis of liver with ascites (HCC) Liver transplant candidate Metabolic dysfunction-associated steatotic liver disease (MASLD) Procedures CONSULT TO NUTRITION THERAPY MEDICAL NUTRITION ASSMT&IVNTJ INDIV EACH 15 NM Dmitri Garg MD [address] [place] [address] Referral IDStatusReasonStart DateExpiration DateVisits RequestedVisits [id number] PCP Requested Referral /[id number] CTSpecialtyDiagnoses / Procedures Referred By ContactReferred To ContactCT IMAGING Diagnoses Lesion of liver greater than 1 cm in diameter Alcoholic cirrhosis of liver with ascites (HCC) Liver transplant candidate Metabolic dysfunction-associated steatotic liver disease (MASLD) Procedures CT LIVER W IVCON CT ABDOMEN W/CONTRAST Dmitri Garg MD [address] [place] [id number] Imaging [place] [address] Referral IDStatusReasonStart DateExpiration DateVisits RequestedVisits [id number] Auto-Generated Referral [id number] / ProceduresReferred By ContactReferred To Contact Diagnoses Pleural effusion associated with hepatic disorder Shortness of breath Lesion of liver greater than 1 cm in diameter Encounter for screening for malignant neoplasm of prostate Alcoholic cirrhosis of liver with ascites (HCC) Liver transplant candidate Metabolic dysfunction-associated steatotic liver disease (MASLD) Procedures CONSULT TO HEPATOLOGY OFFICE/OUTPATIENT [facility] 60 MINUTES Dmitri Garg MD [address] [place] [address] Referral IDStatusReasonStart DateExpiration DateVisits RequestedVisits [id number] PCP Requested Referral [id number]g(Thoracentesis)ReasonCommentsPatient EducationSpecialtyDiagnoses / ProceduresReferred By ContactReferred To Contact Anesthesiology Diagnoses Pleural effusion associated with hepatic disorder Shortness of breath Lesion of liver greater than 1 cm in diameter Alcoholic cirrhosis of liver with ascites (HCC) Liver transplant candidate Metabolic dysfunction-associated steatotic liver disease (MASLD) Procedures CONSULT TO ANESTHESIOLOGY OFFICE/OUTPATIENT [facility] 60 MINUTES Dmitri Garg MD [address] [place] [address] Referral IDStatusReasonStart DateExpiration DateVisits RequestedVisits [id number] PCP Requested Referral /[id number] / ProceduresReferred By ContactReferred To ContactCardiology Diagnoses Pleural effusion associated with hepatic disorder Shortness of breath Lesion of liver greater than 1 cm in diameter Alcoholic cirrhosis of liver with ascites (HCC) Liver transplant candidate Metabolic dysfunction-associated steatotic liver disease (MASLD) Procedures CONSULT TO CARDIOLOGY OFFICE/OUTPATIENT [facility] 60 MINUTES Dmitri Garg MD [address] [place] [address] Referral IDStatusReasonStart DateExpiration DateVisits RequestedVisits [id number] PCP Requested Referral [id number] PatientTransplant EvaluationLiver transplant candidateSpecialtyDiagnoses / ProceduresReferred By ContactReferred To St[facility] CenterInfectious Diseases Diagnoses Lesion of liver greater than 1 cm in diameter Alcoholic cirrhosis of liver with ascites (HCC) Liver transplant candidate Metabolic dysfunction-associated steatotic liver disease (MASLD) Procedures CONSULT TO INFECTIOUS DISEASES OFFICE/OUTPATIENT [facility] 60 MINUTES Dmitri Garg MD [address] [place] [address] Referral IDStatusReasonStart DateExpiration DateVisits RequestedVisits [id number] PCP Requested Referral [id number], LabReasonCommentsResultsSpecialty Diagnoses / ProceduresReferred By ContactReferred To [facility] CenterRES[facility] Diagnoses Dyspnea, unspecified type Procedures SPIROMETRY WITH DILATOR IF OBSTRUCTED BRNCDILAT RSPSE SPMTRY PRE&POST-BRNCDILAT ADMSandro Mix MD [address] [place] [address] [address] [place] [address] [place] [address] Referral IDStatusReasonStart DateExpiration DateVisits RequestedVisits [id number] Auto-Generated Referral [id number] PatientSpecialtyDiagnoses / Procedures Referred By ContactReferred To St[facility] CenterPulmonary and Critical Care Medicine Diagnoses Pleural effusion associated with hepatic disorder Shortness of breath Lesion of liver greater than 1 cm in diameter Alcoholic cirrhosis of liver with ascites (HCC) Liver transplant candidate Metabolic dysfunction-associated steatotic liver disease (MASLD) Procedures CONSULT TO PULM/CRITICAL CARE OFFICE/OUTPATIENT [facility] 60 MINUTES Dmitri Garg MD [address] [place] [address] Referral IDStatusReasonStart DateExpiration DateVisits RequestedVisits [id number] PCP Requested Referral /[id number] Of Patient/familySpecialtyDiagnoses / ProceduresReferred By ContactReferred To [facility] Diagnoses Pleural effusion associated with hepatic disorder Procedures LUNG DIFFUSION CAPACITY (DLCO) LUNG DIFFUSION CAPACITY (DLCO) DIFFUSING CAPACITY Cheri Guido MD [address] [place] [address] Phone: tel: fax: [place] [address] Referral IDStatusReasonFairfax DateExpiration DateVisits RequestedVisits [id number] Auto-Generated Referral /[id number] / ProceduresReferred By ContactReferred To [facility] Diagnoses Pleural effusion associated with hepatic disorder Procedures SPIROMETRY WITH DILATOR IF OBSTRUCTED SPIROMETRY WITH DILATOR IF OBSTRUCTED BRNCDILAT RSPSE SPMTRY PRE&POST-BRNCDILAT ADMN Cheri Guido MD [address] [place] [address] Phone: tel: fax: [place] [address] Referral IDStatusAmandaasonStart DateExpiration DateVisits RequestedVisits [id number] Auto-Generated Referral [id number]-Iw ExamReasonCommentsCARDIAC SUBCOMMITTEE MTGReasonCommentsRadiology MRISpecialtyDiagnoses / ProceduresReferred By Contact Referred To ContactMR IMAGING Diagnoses Low back pain, unspecified back pain laterality, unspecified chronicity, unspecified whether sciatica present Procedures MRI CERVICAL SPINE WO/W IVCON MRI SPINAL CANAL CERVICAL W/O & W/CONTR ROSAMARIAL Dmitri Garg MD [address] [place] [address] Phone: tel: fax: [facility] [place] [address] Referral IDStatusReasonStart DateExpiration DateVisits RequestedVisits [id number] Auto-Generated Referral /[id number] Labs ResultschemistryReasonCommentsOLT evaluationReasonCommentsOLT selection mtg pt notificationReasonCommentsOutside Lab ResultsReasonCommentsConsultReasonCommentsCare Coordinator - OtherReason CommentsBiopsy RequestReasonCommentsPatient UpdateReasonCommentsInformed Consent 91Patient EducationReasonCommentsTransplant SerologiesReasonCommentsdc ed schedulingReasonCommentsReturn Call RequestReasonCommentsLiver Pathology Review HCC Bluejacket ScoreReasonCommentsCoPat StartReasonComments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CoPat AgencyReasonCommentsCoPat ManagementLab reviewReasonCommentsCoPat StopReason [...] section and content) DATE CREATED AUTHOR 07/14/2023 [facility] DATE CREATED AUTHOR AUTHOR'S ORGANIZ ATION 08/22/2024 [facility] DATE CREATED AUTHOR AUTHOR'S ORGANIZ ATION 08/23/2024 [facility] DATE CREATED AUTHOR AUTHOR'S ORGANIZ ATION 08/23/2024 [facility] DATE CREATED AUTHOR AUTHOR'S ORGANIZ ATION 11/22/2024 [facility] DATE CREATED AUTHOR AUTHOR'S ORGANIZ ATION 01/26/2025 [facility] DATE CREATED AUTHOR AUTHOR'S ORGANIZ ATION 02/23/2025 [facility] Source Comments (unrecognize d section and content) In the event this informatio n is protected by the Federal Confidentiality of Alcohol and Drug Abuse Patient Records regulations: The Federal rules restrict any use of the information to criminally investigate or prosecute any alcohol or drug abuse patient.[facility] HospitalIn the event this information is protected by the Federal Confidentiality of Alcohol and Drug Abuse Patient Records regulations: The Federal rules restrict any use of the information to criminally investigate or prosecute any alcohol or drug abuse patient.[facility] HospitalIn the event this information is protected by the Federal Confidentiality of Alcohol and Drug Abuse Patient Records regulations: The Federal rules restrict any use of the information to criminally investigate or prosecute any alcohol or drug abuse patient.[facility] HospitalIn the event this information is protected by the Federal Confidentiality of Alcohol and Drug Abuse Patient Records regulations: The Federal rules restrict any use of the information to criminally investigate or prosecute any alcohol or drug abuse patient.[facility] HospitalIn the event this information is protected by the Federal Confidentiality of Alcohol and Drug Abuse Patient Records regulations: The Federal rules restrict any use of the information to criminally investigate or prosecute any alcohol or drug abuse patient.[facility] HospitalIn the event this information is protected by the Federal Confidentiality of Alcohol and Drug Abuse Patient Records regulations: The Federal rules restrict any use of the information to criminally investigate or prosecute any alcohol or drug abuse patient.[facility] HospitalIn the event this information is protected by the Federal Confidentiality of Alcohol and Drug Abuse Patient Records regulations: The Federal rules restrict any use of the information to criminally investigate or prosecute any alcohol or drug abuse patient.[facility] HospitalIn the event this information is protected by the Federal Confidentiality of Alcohol and Drug Abuse Patient Records regulations: The Federal rules restrict any use of the information to criminally investigate or prosecute any alcohol or drug abuse patient.[facility] HospitalIn the event this information is protected by the Federal Confidentiality of Alcohol and Drug Abuse Patient Records regulations: The Federal rules restrict any use of the information to criminally investigate or prosecute any alcohol or drug abuse patient.[facility] HospitalIn the event this information is protected by the Federal Confidentiality of Alcohol and Drug Abuse Patient Records regulations: The Federal rules restrict any use of the information to criminally investigate or prosecute any alcohol or drug abuse patient.[facility] HospitalIn the event this information is protected by the Federal Confidentiality of Alcohol and Drug Abuse Patient Records regulations: The Federal rules restrict any use of the information to criminally investigate or prosecute any alcohol or drug abuse patient.[facility] HospitalIn the event this information is protected by the Federal Confidentiality of Alcohol and Drug Abuse Patient Records regulations: The Federal rules restrict any use of the information to criminally investigate or prosecute any alcohol or drug abuse patient.[facility] HospitalIn the event this information is protected by the Federal Confidentiality of Alcohol and Drug Abuse Patient Records regulations: The Federal rules restrict any use of the information to criminally investigate or prosecute any alcohol or drug abuse patient.[facility] HospitalIn the event this information is protected by the Federal Confidentiality of Alcohol and Drug Abuse Patient Records regulations: The Federal rules restrict any use of the information to criminally investigate or prosecute any alcohol or drug abuse patient.[facility] HospitalIn the event this information is protected by the Federal Confidentiality of Alcohol and Drug Abuse Patient Records regulations: The Federal rules restrict any use of the information to criminally investigate or prosecute any alcohol or drug abuse patient.[facility] HospitalIn the event this information is protected by the Federal Confidentiality of Alcohol and Drug Abuse Patient Records regulations: The Federal rules restrict any use of the information to criminally investigate or prosecute any alcohol or drug abuse patient.[facility] HospitalIn the event this information is protected by the Federal Confidentiality of Alcohol and Drug Abuse Patient Records regulations: The Federal rules restrict any use of the information to criminally investigate or prosecute any alcohol or drug abuse patient.[facility] HospitalIn the event this information is protected by the Federal Confidentiality of Alcohol and Drug Abuse Patient Records regulations: The Federal rules restrict any use of the information to criminally investigate or prosecute any alcohol or drug abuse patient.[facility] HospitalIn the event this information is protected by the Federal Confidentiality of Alcohol and Drug Abuse Patient Records regulations: The Federal rules restrict any use of the information to criminally investigate or prosecute any alcohol or drug abuse patient.[facility] HospitalIn the event this information is protected by the Federal Confidentiality of Alcohol and Drug Abuse Patient Records regulations: The Federal rules restrict any use of the information to criminally investigate or prosecute any alcohol or drug abuse patient.[facility] HospitalIn the event this information is protected by the Federal Confidentiality of Alcohol and Drug Abuse Patient Records regulations: The Federal rules restrict any use of the information to criminally investigate or prosecute any alcohol or drug abuse patient.[facility] HospitalIn the event this information is protected by the Federal Confidentiality of Alcohol and Drug Abuse Patient Records regulations: The Federal rules restrict any use of the information to criminally investigate or prosecute any alcohol or drug abuse patient.[facility] HospitalIn the event this information is protected by the Federal Confidentiality of Alcohol and Drug Abuse Patient Records regulations: The Federal rules restrict any use of the information to criminally investigate or prosecute any alcohol or drug abuse patient.[facility] HospitalIn the event this information is protected by the Federal Confidentiality of Alcohol and Drug Abuse Patient Records regulations: The Federal rules restrict any use of the information to criminally investigate or prosecute any alcohol or drug abuse patient.[facility] HospitalIn the event this information is protected by the Federal Confidentiality of Alcohol and Drug Abuse Patient Records regulations: The Federal rules restrict any use of the information to criminally investigate or prosecute any alcohol or drug abuse patient.[facility] HospitalIn the event this information is protected by the Federal Confidentiality of Alcohol and Drug Abuse Patient Records regulations: The Federal rules restrict any use of the information to criminally investigate or prosecute any alcohol or drug abuse patient.[facility] HospitalIn the event this information is protected by the Federal Confidentiality of Alcohol and Drug Abuse Patient Records regulations: The Federal rules restrict any use of the information to criminally investigate or prosecute any alcohol or drug abuse patient.[facility] HospitalIn the event this information is protected by the Federal Confidentiality of Alcohol and Drug Abuse Patient Records regulations: The Federal rules restrict any use of the information to criminally investigate or prosecute any alcohol or drug abuse patient.[facility] HospitalIn the event this information is protected by the Federal Confidentiality of Alcohol and Drug Abuse Patient Records regulations: The Federal rules restrict any use of the information to criminally investigate or prosecute any alcohol or drug abuse patient.[facility] HospitalIn the event this information is protected by the Federal Confidentiality of Alcohol and Drug Abuse Patient Records regulations: The Federal rules restrict any use of the information to criminally investigate or prosecute any alcohol or drug abuse patient.[facility] HospitalIn the event this information is protected by the Federal Confidentiality of Alcohol and Drug Abuse Patient Records regulations: The Federal rules restrict any use of the information to criminally investigate or prosecute any alcohol or drug abuse patient.[facility] HospitalIn the event this information is protected by the Federal Confidentiality of Alcohol and Drug Abuse Patient Records regulations: The Federal rules restrict any use of the information to criminally investigate or prosecute any alcohol or drug abuse patient.[facility] HospitalIn the event this information is protected by the Federal Confidentiality of Alcohol and Drug Abuse Patient Records regulations: The Federal rules restrict any use of the information to criminally investigate or prosecute any alcohol or drug abuse patient.[facility] HospitalIn the event this information is protected by the Federal Confidentiality of Alcohol and Drug Abuse Patient Records regulations: The Federal rules restrict any use of the information to criminally investigate or prosecute any alcohol or drug abuse patient.[facility] HospitalIn the event this information is protected by the Federal Confidentiality of Alcohol and Drug Abuse Patient Records regulations: The Federal rules restrict any use of the information to criminally investigate or prosecute any alcohol or drug abuse patient.[facility] HospitalIn the event this information is protected by the Federal Confidentiality of Alcohol and Drug Abuse Patient Records regulations: The Federal rules restrict any use of the information to criminally investigate or prosecute any alcohol or drug abuse patient.[facility] HospitalIn the event this information is protected by the Federal Confidentiality of Alcohol and Drug Abuse Patient Records regulations: The Federal rules restrict any use of the information to criminally investigate or prosecute any alcohol or drug abuse patient.[facility] HospitalIn the event this information is protected by the Federal Confidentiality of Alcohol and Drug Abuse Patient Records regulations: The Federal rules restrict any use of the information to criminally investigate or prosecute any alcohol or drug abuse patient.[facility] HospitalIn the event this information is protected by the Federal Confidentiality of Alcohol and Drug Abuse Patient Records regulations: The Federal rules restrict any use of the information to criminally investigate or prosecute any alcohol or drug abuse patient.[facility] HospitalIn the event this information is protected by the Federal Confidentiality of Alcohol and Drug Abuse Patient Records regulations: The Federal rules restrict any use of the information to criminally investigate or prosecute any alcohol or drug abuse patient.[facility] HospitalIn the event this information is protected by the Federal Confidentiality of Alcohol and Drug Abuse Patient Records regulations: The Federal rules restrict any use of the information to criminally investigate or prosecute any alcohol or drug abuse patient.[facility] HospitalIn the event this information is protected by the Federal Confidentiality of Alcohol and Drug Abuse Patient Records regulations: The Federal rules restrict any use of the information to criminally investigate or prosecute any alcohol or drug abuse patient.[facility] HospitalIn the event this information is protected [...] any alcohol or drug abuse patient.[facility] HospitalIn the event this information is protected by the Federal Confidentiality of Alcohol and Drug Abuse Patient Records regulations: The Federal rules restrict any use of the information to criminally investigate or prosecute any alcohol or drug abuse patient.[facility] HospitalIn the event this information is protected by the Federal Confidentiality of Alcohol and Drug Abuse Patient Records regulations: The Federal rules restrict any use of the information to criminally investigate or prosecute any alcohol or drug abuse patient.[facility] HospitalIn the event this information is protected by the Federal Confidentiality of Alcohol and Drug Abuse Patient Records regulations: The Federal rules restrict any use of the information to criminally investigate or prosecute any alcohol or drug abuse patient.[facility] HospitalIn the event this information is protected by the Federal Confidentiality of Alcohol and Drug Abuse Patient Records regulations: The Federal rules restrict any use of the information to criminally investigate or prosecute any alcohol or drug abuse patient.[facility] HospitalIn the event this information is protected by the Federal Confidentiality of Alcohol and Drug Abuse Patient Records regulations: The Federal rules restrict any use of the information to criminally investigate or prosecute any alcohol or drug abuse patient.[facility] HospitalIn the event this information is protected by the Federal Confidentiality of Alcohol and Drug Abuse Patient Records regulations: The Federal rules restrict any use of the information to criminally investigate or prosecute any alcohol or drug abuse patient.[facility] HospitalIn the event this information is protected by the Federal Confidentiality of Alcohol and Drug Abuse Patient Records regulations: The Federal rules restrict any use of the information to criminally investigate or prosecute any alcohol or drug abuse patient.[facility] HospitalIn the event this information is protected by the Federal Confidentiality of Alcohol and Drug Abuse Patient Records regulations: The Federal rules restrict any use of the information to criminally investigate or prosecute any alcohol or drug abuse patient.[facility] HospitalIn the event this information is protected by the Federal Confidentiality of Alcohol and Drug Abuse Patient Records regulations: The Federal rules restrict any use of the information to criminally investigate or prosecute any alcohol or drug abuse patient.[facility] HospitalIn the event this information is protected by the Federal Confidentiality of Alcohol and Drug Abuse Patient Records regulations: The Federal rules restrict any use of the information to criminally investigate or prosecute any alcohol or drug abuse patient.[facility] HospitalIn the event this information is protected by the Federal Confidentiality of Alcohol and Drug Abuse Patient Records regulations: The Federal rules restrict any use of the information to criminally investigate or prosecute any alcohol or drug abuse patient.[facility] HospitalIn the event this information is protected by the Federal Confidentiality of Alcohol and Drug Abuse Patient Records regulations: The Federal rules restrict any use of the information to criminally investigate or prosecute any alcohol or drug abuse patient.[facility] HospitalIn the event this information is protected by the Federal Confidentiality of Alcohol and Drug Abuse Patient Records regulations: The Federal rules restrict any use of the information to criminally investigate or prosecute any alcohol or drug abuse patient.[facility] HospitalIn the event this information is protected by the Federal Confidentiality of Alcohol and Drug Abuse Patient Records regulations: The Federal rules restrict any use of the information to criminally investigate or prosecute any alcohol or drug abuse patient.[facility] HospitalIn the event this information is protected by the Federal Confidentiality of Alcohol and Drug Abuse Patient Records regulations: The Federal rules restrict any use of the information to criminally investigate or prosecute any alcohol or drug abuse patient.[facility] HospitalIn the event this information is protected by the Federal Confidentiality of Alcohol and Drug Abuse Patient Records regulations: The Federal rules restrict any use of the information to criminally investigate or prosecute any alcohol or drug abuse patient.[facility] HospitalIn the event this information is protected by the Federal Confidentiality of Alcohol and Drug Abuse Patient Records regulations: The Federal rules restrict any use of the information to criminally investigate or prosecute any alcohol or drug abuse patient.[facility] HospitalIn the event this information is protected by the Federal Confidentiality of Alcohol and Drug Abuse Patient Records regulations: The Federal rules restrict any use of the information to criminally investigate or prosecute any alcohol or drug abuse patient.[facility] HospitalIn the event this information is protected by the Federal Confidentiality of Alcohol and Drug Abuse Patient Records regulations: The Federal rules restrict any use of the information to criminally investigate or prosecute any alcohol or drug abuse patient.[facility] HospitalIn the event this information is protected by the Federal Confidentiality of Alcohol and Drug Abuse Patient Records regulations: The Federal rules restrict any use of the information to criminally investigate or prosecute any alcohol or drug abuse patient.[facility] HospitalIn the event this information is protected by the Federal Confidentiality of Alcohol and Drug Abuse Patient Records regulations: The Federal rules restrict any use of the information to criminally investigate or prosecute any alcohol or drug abuse patient.[facility] HospitalIn the event this information is protected by the Federal Confidentiality of Alcohol and Drug Abuse Patient Records regulations: The Federal rules restrict any use of the information to criminally investigate or prosecute any alcohol or drug abuse patient.[facility] HospitalIn the event this information is protected by the Federal Confidentiality of Alcohol and Drug Abuse Patient Records regulations: The Federal rules restrict any use of the information to criminally investigate or prosecute any alcohol or drug abuse patient.[facility] HospitalIn the event this information is protected by the Federal Confidentiality of Alcohol and Drug Abuse Patient Records regulations: The Federal rules restrict any use of the information to criminally investigate or prosecute any alcohol or drug abuse patient.[facility] HospitalIn the event this information is protected by the Federal Confidentiality of Alcohol and Drug Abuse Patient Records regulations: The Federal rules restrict any use of the information to criminally investigate or prosecute any alcohol or drug abuse patient.[facility] HospitalIn the event this information is protected by the Federal Confidentiality of Alcohol and Drug Abuse Patient Records regulations: The Federal rules restrict any use of the information to criminally investigate or prosecute any alcohol or drug abuse patient.[facility] HospitalIn the event this information is protected by the Federal Confidentiality of Alcohol and Drug Abuse Patient Records regulations: The Federal rules restrict any use of the information to criminally investigate or prosecute any alcohol or drug abuse patient.[facility] HospitalIn the event this information is protected by the Federal Confidentiality of Alcohol and Drug Abuse Patient Records regulations: The Federal rules restrict any use of the information to criminally investigate or prosecute any alcohol or drug abuse patient.[facility] HospitalIn the event this information is protected by the Federal Confidentiality of Alcohol and Drug Abuse Patient Records regulations: The Federal rules restrict any use of the information to criminally investigate or prosecute any alcohol or drug abuse patient.[facility] HospitalIn the event this information is protected by the Federal Confidentiality of Alcohol and Drug Abuse Patient Records regulations: The Federal rules restrict any use of the information to criminally investigate or prosecute any alcohol or drug abuse patient.[facility] HospitalIn the event this information is protected by the Federal Confidentiality of Alcohol and Drug Abuse Patient Records regulations: The Federal rules restrict any use of the information to criminally investigate or prosecute any alcohol or drug abuse patient.[facility] HospitalIn the event this information is protected by the Federal Confidentiality of Alcohol and Drug Abuse Patient Records regulations: The Federal rules restrict any use of the information to criminally investigate or prosecute any alcohol or drug abuse patient.[facility] HospitalIn the event this information is protected by the Federal Confidentiality of Alcohol and Drug Abuse Patient Records regulations: The Federal rules restrict any use of the information to criminally investigate or prosecute any alcohol or drug abuse patient.[facility] HospitalIn the event this information is protected by the Federal Confidentiality of Alcohol and Drug Abuse Patient Records regulations: The Federal rules restrict any use of the information to criminally investigate or prosecute any alcohol or drug abuse patient.[facility] HospitalIn the event this information is protected by the Federal Confidentiality of Alcohol and Drug Abuse Patient Records regulations: The Federal rules restrict any use of the information to criminally investigate or prosecute any alcohol or drug abuse patient.[facility] HospitalIn the event this information is protected by the Federal Confidentiality of Alcohol and Drug Abuse Patient Records regulations: The Federal rules restrict any use of the information to criminally investigate or prosecute any alcohol or drug abuse patient.[facility] HospitalIn the event this information is protected by the Federal Confidentiality of Alcohol and Drug Abuse Patient Records regulations: The Federal rules restrict any use of the information to criminally investigate or prosecute any alcohol or drug abuse patient.[facility] HospitalIn the event this information is protected by the Federal Confidentiality of Alcohol and Drug Abuse Patient Records regulations: The Federal rules restrict any use of the information to criminally investigate or prosecute any alcohol or drug abuse patient.[facility] HospitalIn the event this information is protected by the Federal Confidentiality of Alcohol and Drug Abuse Patient Records regulations: The Federal rules restrict any use of the information to criminally investigate or prosecute any alcohol or drug abuse patient.[facility] HospitalIn the event this information is protected by the Federal Confidentiality of Alcohol and Drug Abuse Patient Records regulations: The Federal rules restrict any use of the information to criminally investigate or prosecute any alcohol or drug abuse patient.[facility] HospitalIn the event this information is protected by the Federal Confidentiality of Alcohol and Drug Abuse Patient Records regulations: The Federal rules restrict any use of the information to criminally investigate or prosecute any alcohol or drug abuse patient.[facility] HospitalIn the event this information is protected by the Federal Confidentiality of Alcohol and Drug Abuse Patient Records regulations: The Federal rules restrict any use of the information to criminally investigate or prosecute any alcohol or drug abuse patient.[facility] HospitalIn the event this information is protected by the Federal Confidentiality of Alcohol and Drug Abuse Patient Records regulations: The Federal rules restrict any use of the information to criminally investigate or prosecute any alcohol or drug abuse patient.[facility] HospitalIn the event this information is protected by the Federal Confidentiality of Alcohol and Drug Abuse Patient Records regulations: The Federal rules restrict any use of the information to criminally investigate or prosecute any alcohol or drug abuse patient.[facility] HospitalIn the event this information is protected by the Federal Confidentiality of Alcohol and Drug Abuse Patient Records regulations: The Federal rules restrict any use of the information to criminally investigate or prosecute any alcohol or drug abuse patient.[facility] HospitalIn the event this information is protected by the Federal Confidentiality of Alcohol and Drug Abuse Patient Records regulations: The Federal rules restrict any use of the information to criminally investigate or prosecute any alcohol or drug abuse patient.[facility] HospitalIn the event this information is protected by the Federal Confidentiality of Alcohol and Drug Abuse Patient Records regulations: The Federal rules restrict any use of the information to criminally investigate or prosecute any alcohol or drug abuse patient.[facility] HospitalIn the event this information is protected by the Federal Confidentiality of Alcohol and Drug Abuse Patient Records regulations: The Federal rules restrict any use of the information to criminally investigate or prosecute any alcohol or drug abuse patient.[facility] HospitalIn the event this information is protected [...] any alcohol or drug abuse patient.[facility] HospitalIn the event this information is protected by the Federal Confidentiality of Alcohol and Drug Abuse Patient Records regulations: The Federal rules restrict any use of the information to criminally investigate or prosecute any alcohol or drug abuse patient.[facility] HospitalIn the event this information is protected by the Federal Confidentiality of Alcohol and Drug Abuse Patient Records regulations: The Federal rules restrict any use of the information to criminally investigate or prosecute any alcohol or drug abuse patient.[facility] HospitalIn the event this information is protected by the Federal Confidentiality of Alcohol and Drug Abuse Patient Records regulations: The Federal rules restrict any use of the information to criminally investigate or prosecute any alcohol or drug abuse patient.[facility] HospitalIn the event this information is protected by the Federal Confidentiality of Alcohol and Drug Abuse Patient Records regulations: The Federal rules restrict any use of the information to criminally investigate or prosecute any alcohol or drug abuse patient.[facility] HospitalIn the event this information is protected by the Federal Confidentiality of Alcohol and Drug Abuse Patient Records regulations: The Federal rules restrict any use of the information to criminally investigate or prosecute any alcohol or drug abuse patient.[facility] HospitalIn the event this information is protected by the Federal Confidentiality of Alcohol and Drug Abuse Patient Records regulations: The Federal rules restrict any use of the information to criminally investigate or prosecute any alcohol or drug abuse patient.[facility] HospitalIn the event this information is protected by the Federal Confidentiality of Alcohol and Drug Abuse Patient Records regulations: The Federal rules restrict any use of the information to criminally investigate or prosecute any alcohol or drug abuse patient.[facility] HospitalIn the event this information is protected by the Federal Confidentiality of Alcohol and Drug Abuse Patient Records regulations: The Federal rules restrict any use of the information to criminally investigate or prosecute any alcohol or drug abuse patient.[facility] HospitalIn the event this information is protected by the Federal Confidentiality of Alcohol and Drug Abuse Patient Records regulations: The Federal rules restrict any use of the information to criminally investigate or prosecute any alcohol or drug abuse patient.[facility] HospitalIn the event this information is protected by the Federal Confidentiality of Alcohol and Drug Abuse Patient Records regulations: The Federal rules restrict any use of the information to criminally investigate or prosecute any alcohol or drug abuse patient.[facility] HospitalIn the event this information is protected by the Federal Confidentiality of Alcohol and Drug Abuse Patient Records regulations: The Federal rules restrict any use of the information to criminally investigate or prosecute any alcohol or drug abuse patient.[facility] HospitalIn the event this information is protected by the Federal Confidentiality of Alcohol and Drug Abuse Patient Records regulations: The Federal rules restrict any use of the information to criminally investigate or prosecute any alcohol or drug abuse patient.[facility] HospitalIn the event this information is protected by the Federal Confidentiality of Alcohol and Drug Abuse Patient Records regulations: The Federal rules restrict any use of the information to criminally investigate or prosecute any alcohol or drug abuse patient.[facility] HospitalIn the event this information is protected by the Federal Confidentiality of Alcohol and Drug Abuse Patient Records regulations: The Federal rules restrict any use of the information to criminally investigate or prosecute any alcohol or drug abuse patient.[facility] HospitalIn the event this information is protected by the Federal Confidentiality of Alcohol and Drug Abuse Patient Records regulations: The Federal rules restrict any use of the information to criminally investigate or prosecute any alcohol or drug abuse patient.[facility] HospitalIn the event this information is protected by the Federal Confidentiality of Alcohol and Drug Abuse Patient Records regulations: The Federal rules restrict any use of the information to criminally investigate or prosecute any alcohol or drug abuse patient.[facility] HospitalIn the event this information is protected by the Federal Confidentiality of Alcohol and Drug Abuse Patient Records regulations: The Federal rules restrict any use of the information to criminally investigate or prosecute any alcohol or drug abuse patient.[facility] HospitalIn the event this information is protected by the Federal Confidentiality of Alcohol and Drug Abuse Patient Records regulations: The Federal rules restrict any use of the information to criminally investigate or prosecute any alcohol or drug abuse patient.[facility] HospitalIn the event this information is protected by the Federal Confidentiality of Alcohol and Drug Abuse Patient Records regulations: The Federal rules restrict any use of the information to criminally investigate or prosecute any alcohol or drug abuse patient.[facility] HospitalIn the event this information is protected by the Federal Confidentiality of Alcohol and Drug Abuse Patient Records regulations: The Federal rules restrict any use of the information to criminally investigate or prosecute any alcohol or drug abuse patient.[facility] HospitalIn the event this information is protected by the Federal Confidentiality of Alcohol and Drug Abuse Patient Records regulations: The Federal rules restrict any use of the information to criminally investigate or prosecute any alcohol or drug abuse patient.[facility] HospitalIn the event this information is protected by the Federal Confidentiality of Alcohol and Drug Abuse Patient Records regulations: The Federal rules restrict any use of the information to criminally investigate or prosecute any alcohol or drug abuse patient.[facility] HospitalIn the event this information is protected by the Federal Confidentiality of Alcohol and Drug Abuse Patient Records regulations: The Federal rules restrict any use of the information to criminally investigate or prosecute any alcohol or drug abuse patient.[facility] HospitalIn the event this information is protected by the Federal Confidentiality of Alcohol and Drug Abuse Patient Records regulations: The Federal rules restrict any use of the information to criminally investigate or prosecute any alcohol or drug abuse patient.[facility] HospitalIn the event this information is protected by the Federal Confidentiality of Alcohol and Drug Abuse Patient Records regulations: The Federal rules restrict any use of the information to criminally investigate or prosecute any alcohol or drug abuse patient.[facility] HospitalIn the event this information is protected by the Federal Confidentiality of Alcohol and Drug Abuse Patient Records regulations: The Federal rules restrict any use of the information to criminally investigate or prosecute any alcohol or drug abuse patient.[facility] HospitalIn the event this information is protected by the Federal Confidentiality of Alcohol and Drug Abuse Patient Records regulations: The Federal rules restrict any use of the information to criminally investigate or prosecute any alcohol or drug abuse patient.[facility] HospitalIn the event this information is protected by the Federal Confidentiality of Alcohol and Drug Abuse Patient Records regulations: The Federal rules restrict any use of the information to criminally investigate or prosecute any alcohol or drug abuse patient.[facility] HospitalIn the event this information is protected by the Federal Confidentiality of Alcohol and Drug Abuse Patient Records regulations: The Federal rules restrict any use of the information to criminally investigate or prosecute any alcohol or drug abuse patient.[facility] HospitalIn the event this information is protected by the Federal Confidentiality of Alcohol and Drug Abuse Patient Records regulations: The Federal rules restrict any use of the information to criminally investigate or prosecute any alcohol or drug abuse patient.[facility] HospitalIn the event this information is protected by the Federal Confidentiality of Alcohol and Drug Abuse Patient Records regulations: The Federal rules restrict any use of the information to criminally investigate or prosecute any alcohol or drug abuse patient.[facility] HospitalIn the event this information is protected by the Federal Confidentiality of Alcohol and Drug Abuse Patient Records regulations: The Federal rules restrict any use of the information to criminally investigate or prosecute any alcohol or drug abuse patient.[facility] FOR RECORDS PERTAINING TO PATIENTS WHO [...] BE BASED ON THE PRIMARY CLINICAL RECORDS. [facility] [employer] [facility]. provides no warranty or guarantee of the accuracy or completeness of information in this document.
--- NOTE | 2025-03-17 13:31 | PM.CN ---
Consult Note: HPI Data of Consult Patient: known to practice within the last 3 years Consult date: 03/17/25 Requesting Physician: Andrea Sosa MD Primary Care Provider: SANJAY ROBLEDO Consult Narrative Reason for consult: midback pain Narrative: 69yom who presents for assessment. notes significant midback pain that is not resolved with tylenol. previous fusion from t8-l3. imaging reviewed, significant for moderate to severe stenosis from t7-t11. previous compression fractures noted, as well. was previously on dilaudid. hx of liver txp, so med options somewhat limited by this. 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) ?K75.81 - Nonalcoholic steatohepatitis (JARAMILLO) (ICD-10) ?K74.60 - Unspecified cirrhosis of liver (ICD-10) Esophageal varices ?I85.00 - Esophageal varices without bleeding (ICD-10) Hyponatremia ?E87.1 - Hypo-osmolality and hyponatremia (ICD-10) Metabolic syndrome X ?E88.810 - Metabolic syndrome (ICD-10) Incisional hernia ?K43.2 - Incisional hernia without obstruction or gangrene (ICD-10) GERD (gastroesophageal reflux disease) ?K21.9 - Gastro-esophageal reflux disease without esophagitis (ICD-10) Weight loss ?R63.4 - Abnormal weight loss (ICD-10) Barretts esophagus ?K22.70 - Tipton's esophagus without dysplasia (ICD-10) Pleural effusion, bilateral ?J90 - Pleural effusion, not elsewhere classified (ICD-10) Surgical History H/O cataract removal with insertion of prosthetic lens ?Z98.49 - Cataract extraction status, unspecified eye (ICD-10) ?Z96.1 - Presence of intraocular lens (ICD-10) Status post thoracentesis ?Z98.890 - Other specified postprocedural states (ICD-10) S/P abdominal paracentesis ?Z98.890 - Other specified postprocedural states (ICD-10) Hx of cholecystectomy ?Z90.49 - Acquired absence of other specified parts of digestive tract (ICD-10) H/O colonoscopy ?Z98.890 - Other specified postprocedural states (ICD-10) H/O esophagogastroduodenoscopy ?Z98.890 - Other specified postprocedural states (ICD-10) Family History Mother Family history of COPD (chronic obstructive pulmonary disease) Family history of hypertension Father Family history of hypertension Social History Within the past year, how often did you have a drink containing alcohol: never Within the past year, how often did you have six or more drinks on one occasion: never Score interpretation: A score less than 4 is consistent with normal alcohol consumption. 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 Highest level of school completed/degree received: high school graduate Are you now , , , , never or living with a partner: In a typical week, how many times do you talk on the telephone with family, friends, or neighbors: once per week How often do you get together with friends or relatives: once per week How often do you attend anabaptism or mu-ism services: never Do you belong to any clubs or organizations such as anabaptism groups unions, fraternal or athletic groups, or school groups: no Total score: 1 Score interpretation: A score of less than or equal to 1 indicates the most socially isolated. Little interest or pleasure in doing things: not at all Feeling down, depressed, or hopeless: not at all Feel stressed/tense/nervous/anxious/difficulty sleeping: not at all Meds Home Medications and Allergies Home Medications ?Medication ?Instructions ?Recorded ?Confirmed ?Type multivitamin 1 tab PO DAILY 10/03/23 11/19/24 History aspirin 81 mg capsule 81 mg PO DAILY 11/19/24 11/19/24 History magnesium oxide 400 mg PO TID 11/19/24 11/19/24 History mirtazapine 7.5 mg tablet 7.5 mg PO BEDTIME 11/19/24 11/19/24 History pantoprazole 40 mg tablet,delayed 40 mg PO DAILY 11/19/24 11/19/24 History release sulfamethoxazole 800 1 tab PO .COMPLEX 11/19/24 11/19/24 History mg-trimethoprim 160 mg tablet tacrolimus 5 mg capsule, 5 mg PO Q12H 11/19/24 11/19/24 History immediate-release ursodiol 300 mg capsule 300 mg PO Q8H 11/19/24 11/19/24 History acetaminophen 500 mg tablet 500 mg PO TID PRN pain 03/06/25 03/06/25 History (Tylenol Extra Strength) furosemide 20 mg tablet (Lasix) 20 mg PO DAILY 03/06/25 03/06/25 History gabapentin 300 mg capsule 300 mg PO QID #120 caps 03/06/25 Rx letermovir 480 mg tablet (Prevymis) 480 mg PO DAILY 03/06/25 03/06/25 History melatonin 5 mg capsule mg 03/06/25 History methocarbamol 500 mg tablet 500 mg PO TID 03/06/25 03/06/25 History multivitamin 1 tab PO DAILY 03/06/25 03/06/25 History oxycodone 5 mg tablet 5 mg PO QID PRN pain #120 tabs 03/17/25 Rx Allergies Allergy/AdvReac Type Severity Reaction Status Date / Time buprenorphine AdvReac Severe Agitated Verified 03/06/25 16:02 Exam Narrative Exam Narrative: Psych-alert and oriented x 3.? Attentive and appropriate, constitutionally normal, displays normal mood and affect per situation.? There are no obvious deficits in memory, reasoning, or intellect.? Skin-no obvious rashes, bruising, or erythema noted to the patient's area of pain.? Extremities-upper extremities are warm with minimal edema and palpable pulses. Thoracic - tenderness to palpation noted in the thoracic spine and paraspinal musculature.? Pain is elicited with flexion, extension, and lateral rotation. Range of motion is diminished due to pain. Facet loading maneuvers are positive. Sensory-no notable sensory deficits in the bilateral upper extremities to touch or pinprick with the exception to decreased sensation to the bilateral T7, 8, 9 dermatomal distribution.? Coordination remains intact.? Gait remains non-antalgic. Assessment and Plan Assessment and Plan (1) Thoracic stenosis: (2) Thoracic radiculopathy: Plan 69yom who presents for assessment. failed conservative measures, as noted. imaging reviewed, as noted. given symptoms and imaging, prudent to attempt bilateral t7-8 tfesi under fluoroscopic guidance. he is in agreement. meds reviewed, will trial oxycodone 5mg qid prn. follow up after procedure.
== END 2025-03-17 12:23 | disposition home or self-care (01) ==
LOC: PM 12:22
PROVIDERS: PCP Internal Medicine; Visit Provider Anesthesiology
DX: M48.04 Spinal stenosis, thoracic region (principal); M54.14 Radiculopathy, thoracic region
CPT/HCPCS: G0463

== ENCOUNTER 2025-03-24 07:02 | Day surgery (SDC) | payer MEDICARE, SELFPAY ==
--- OUTSIDE RECORDS SUMMARY | 2024-01-02 02:30 | XMS_ITS ---
Author Organization [facility] in [place] Address [address] [place] [address] Care Team Providers Care Utility Worker Film Processing Name Role Phone Danny OLIVAS, Rusty Primary Care Provider Unavailab johnny Winter Devyn Unavailable [phone] REASON FOR VISIT [facility]. Encounters Encounter Location Date Provider Diagnosis Pulmonary Medicine [place] [address] [place] [address] 01/02/2024 Devyn Winter Plan Of Treatment No Information Progress Notes * Charles BLANDON JrDOB:[birth year] (69 yo M)Acc No.[id number]:01/02/2024 UNLOCKED PROGRESS NOTE Progress Note Patient: Serena WILL Charles Traore Jr :?BAO ZuritaOB:1955???Age:68 Y ???Sex:MaleDate:01/02/2024hone:[phone]:[address] [id number]:Rusty Delgado MD Subjective: * Chief Complaints: * 1 . [facility] * Medical History: Objective: * Vitals: Assessment: Plan: * Treatment: * * Electronic signature of Devyn Winter DO on 03/24/2025 at 07:06 AM ESTSign off status: PendingVisit Status:?R/S By O/P (Rescheduled by Office/Provider) * Provider: Bernda Winter, DO Date: 0 01/02/2024 Generated for Printing/Faxing/eTransmitting on:?03/24/2025 07:06 AM EST
--- OUTSIDE RECORDS SUMMARY | 2024-07-09 05:30 | XMS_ITS ---
Author Organization The [facility] in [place] Address [address] [place] [address] Care Team Providers Care Auditing Clerk Name Role Phone Danny OLIVAS, Rusty Primary Care Provider Unavailab Devyn Ramsey Unavailable [phone] REASON FOR VISIT [facility]U [facility] Encounters Encounter Location Date Provider Diagnosis Pulmonary Medicine [place] [address] [place] [address] 07/09/2024 Devyn Winter Plan Of Treatment No Information Progress Notes * Charles BLANDON JrDOB:[birth year] (69 yo M)Acc No.[id number]:07/09/2024 UNLOCKED PROGRESS NOTE Follow Up Patient: Serena WILLCharles Jr :?BAO ZuritaOB:1955???Age:68 Y ???Sex:MaleDate:07/09/2024Phone:[phone]:[id number]:Rusty Delgado MD Subjective: * Chief Complaints: * 1 . [facility].. * Medical History: Objective: * Vitals: Assessment: Plan: * Treatment: * * Electronic signature of Devyn Winter DO on 03/24/2025 at 07:06 AM ESTSign off status: PendingVisit Status:?CANC (Cancelled) * Provider: Brenda Winter DO Date: 0 07/09/2024 Generated for Printing/Faxing/eTransmitting on:?03/24/2025 07:06 AM EST
--- OUTSIDE RECORDS SUMMARY | 2025-03-17 19:00 | XMS_ITS | Clinical Summary ---
Author Organization Unknown Care Team Providers Care Car Servicer Name Role Phone VENKAT OLIVAS, SANJAY Unavailable Unavailable [employer] COORDINATOR, JESSIE Unavailable Unavailable EWA OT, ESVIN Unavailable Unavailable STEPHANIE PT, FRANKLIN Unavailable Unavailable SHAHRIAR RN, ZACKERY Unavailable Unavailable KALLIE GRUBER Unavailable Unavailable Payers Payer Name Policy Type Policy Number Effective Date Expira tion Date [employer] MEDICARE ADVANTAGE MYNEXUS/CARELON [id number] Problems Condition Name Condition Details Condition Category Status Onset Date Resolution Date Last Treatment Date Treating Clinician Comments CRITICAL ILLNESS MYOPATHY Bebfls7009-80-41 00:00: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 NLKPKOppwfc0540-53-02 00:00:00DEPRESSION, ORBZKLTIBNIWrcodj8911-55-95 00:00:00 ANXIETY DISORDER, DUSQZJMBGBPQfzung5970-85-45 00:00:00PULMONARY HYPERTENSION, OYUIYLWDGDVEyidaq7453-35-61 00:00:00LIVER CELL VQCQZWITSMstzbo6964-53-85 00:00:00ALCOHOLIC CIRRHOSIS OF LIVER WITH DAZHDKATswizz8256-04-71 00:00:00 ESOPHAGEAL VARICES WITHOUT YZRLDXUBUhcmnu1308-04-35 00:00:00PORTAL HYPERTENSION Kupvin6916-40-23 00:00:00HEPATIC FGRXAQJWEYKRDTUkdsze3484-87-93 00:00:00 HEREDITARY HEMORRHAGIC TUPPHBKNQXRCBAYdfjcs7848-24-83 00:00: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 AND STG 1-4/UNSP CHR CHUOPmvynp3762-56-03 00:00:00 UNSPECIFIED DIASTOLIC (CONGESTIVE) HEART TRZCAOBLlectt5118-74-01 00:00:00CHRONIC KIDNEY DISEASE, STAGE 3 RZQMZDIUEZBQysozp9049-04-79 00:00:00ANEMIA IN CHRONIC KIDNEY DHXSRMVUmxceq2925-32-64 00:00:00UNSPECIFIED SEVERE PROTEIN-CALORIE PBWROBQGXULJAimnvv5664-35-29 00:00:00OTHER PSYCHOACTIVE SUBSTANCE ABUSE, LUWXZCJGZGSSLYptwga3581-78-13 00:00:00BENIGN PROSTATIC HYPERPLASIA WITHOUT LOWER URINRY TRACT EXFZXhojri0404-97-25 00:00: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 Chgfwo3534-67-87 00:00:00PURE HYPERCHOLESTEROLEMIA, ZGDQJGTONIHInyjml0236-54-80 00:00:00METABOLIC ZOPFTABFPbwnoa3842-56-99 00:00:00AGE-REL OSTEOPOR WITH CURRENT PATH FX, LEFT PELVIS, 9WOSVuxvfc9171-47-27 00:00:00AGE-REL OSTEOPOR WITH CURRENT PATH FX, OTHER SITE, 5DKJDtmtgf9565-87-90 00:00:00HEREDITARY AND IDIOPATHIC NEUROPATHY, VAVFAHZVYXSUboesn4903-49-20 00:00:00AGE-REL OSTEOPOR W CRNT PATH FX, VERTEB, 9ELPDmlhvh5116-20-41 00:00:00ACUTE AND CHRONIC RESPIRATORY FAILURE WITH TLDYSOAYxvxyj1959-14-71 00:00:00PRESSURE ULCER OF UNSPECIFIED PART OF BACK, STAGE 4Lmyprf6729-47-33 00:00:00SPINAL STENOSIS, THORACOLUMBAR REGIONActive 2024-04-17 00:00:00GOUT, XSCQOXKDKJRJiopri1405-94-48 00:00:00UMBILICAL HERNIA WITHOUT OBSTRUCTION OR MADIIZZYAcmutz5062-27-29 00:00:00OTHER CHRONIC PAINActive 2024-04-17 00:00:00CYTOMEGALOVIRAL DISEASE, ZXFEAORBQPJCmfeli2926-05-83 00:00:00 WVZHBRXVSHKKOCVnlnzd3621-63-43 00:00:00LONG TERM (CURRENT) USE OF ASPIRINActive 2024-04-17 00:00:00LIVER TRANSPLANT IWTCIZPgbvui1204-65-29 00:00:00PRESENCE OF INTRAOCULAR CGFQImporu6674-41-89 00:00:00PRESENCE OF OTHER SPECIFIED FUNCTIONAL WXYRSTDOMhyvpe9932-37-19 00:00:00ACQUIRED ABSENCE OF OTHER SPECIFIED PARTS OF DIGESTIVE IRYHGYpyuzx1111-31-54 00:00:00PERSONAL HISTORY OF OTHER MALIGNANT NEOPLASM OF RLJEWxtfbl9693-39-24 00:00:00Personal history of colon polyps, lgqfdngzllsZyxaml9533-32-20 00:00:00PERSONAL HISTORY OF PNEUMONIA (RECURRENT) Yvzyob2555-65-11 00:00:00PERSONAL HISTORY OF NICOTINE IXWIDIOVJHUinmkx7811-96-89 00:00:00Problems related to health rqfujjjgOjkfjc3269-85-72 00:00:00HISTORY OF JKHEMBPWazcbx0036-41-21 00:00:00 Allergies, Adverse Reactions, Alerts Allergy Name Allergy Type Status Severity Reaction(s) Onset Date Inactive Date Treating Clinician Comments DEXMEDETOMIDINE Propensity to adverse reactions Active 2025-02-17 12:30:44 Medications Ordered Medication Name Filled Medication Name Start Date Stop Date Current Medication? Ordering Clinician Indication Dosage Frequency Signature (SIG) Comments Components buprenorphine 10 mcg/hour weekly transde rmal patch 2024-11-13 00:00: 23:59:[id number] patch, transdermal weekly WEEKLY1 patch, transdermal weekly WEEKLY (route: transdermal)Med Classification: Analgesic, Anti-inflammatory or Antipyreticciprofloxacin 500 mg kqwzhf3648-01-74 00:00: 23:59:[id number] tablet2 TIMES DAILY1 tablet 2 TIMES DAILY (route: oral)Med Classification: Anti-Infective Agentstacrolimus 5 mg capsule, ejmrfoilg-abbluto7120-21-30 00:00: 23:59:[id number] capsule2 TIMES DAILY1 capsule 2 TIMES DAILY (route: oral)Med Classification: Immunosuppressive Agentsacyclovir 400 mg tuctde2723-96-37 00:00: 00:00:[id number] instructionsPer instructions (route: oral)Med Classification: Anti-Infective Agentsfamotidine 20 mg etkyir8166-56-94 00:00:00 2025-01-22 23:59:[id number] tablet2 TIMES DAILY1 tablet 2 TIMES DAILY (route: oral)Med Classification: Gastrointestinal Therapy AgentsLinzess 145 mcg kwuesfd9188-11-51 00:00: 00:00:[id number] instructionsPer instructions (route: oral)Med Classification: Gastrointestinal Therapy Agents midodrine 10 mg vnqyga4646-19-38 00:00: 23:59:[id number] tablet 3 TIMES DAILY1 tablet 3 TIMES DAILY (route: oral)Med Classification: Cardiovascular Therapy Agentsmirtazapine 7.5 mg grevcy1814-66-86 00:00:00 2025-01-22 23:59:[id number] tabletBEDTIME1 tablet BEDTIME (route: oral)Med Classification: Central Nervous System Agentsoxycodone 5 mg ldwtge3195-25-20 00:00: 23:59:56Vl96821878760-4 tabletEVERY 6 HOURS1-2 tablet EVERY 6 HOURS (route: oral)Med Classification: Analgesic, Anti-inflammatory or Antipyreticpantoprazole 40 mg tablet,delayed tlbgusf9933-60-40 00:00:00 2025-01-22 23:59:[id number] tablet2 TIMES DAILY1 tablet 2 TIMES DAILY (route: oral)Med Classification: Gastrointestinal Therapy Agentssulfamethoxazole 800 mg-trimethoprim 160 mg fodxpc0734-01-13 00:00: 23:59:00No [id number] tablet3 TIMES A WEEK1 tablet 3 TIMES A WEEK (route: oral)Med Classification: Anti-Infective Agentstamsulosin 0.4 mg bzqpoqy8986-01-07 00:00: 23:59:[id number] capsuleBEDTIME1 capsule BEDTIME (route: oral)Med Classification: Genitourinary Therapytrazodone 50 mg jmsewq8505-08-51 00:00: 23:59:[id number] tabletBEDTIME1 tablet BEDTIME (route: oral)Med Classification: Central Nervous System Agentsursodiol 300 mg capsule 2024-11-12 00:00: 23:59:[id number] capsule3 TIMES DAILY1 capsule 3 TIMES DAILY (route: oral)Med Classification: Gastrointestinal Therapy Agentsmagnesium 400 mg (as magnesium oxide) ecrzwaa0548-35-72 00:00: 23:59:[id number] capsule3 TIMES DAILY2 capsule 3 TIMES DAILY (route: oral) Med Classification: Electrolyte Balance-Nutritional Productsmethocarbamol 750 mg ykkses1082-35-16 00:00: 23:59:[id number] tablet3 TIMES DAILY1 tablet 3 TIMES DAILY (route: oral)Med Classification: Locomotor SystemMilk of Magnesia 400 mg/5 mL oral jdxyqszsea8305-57-08 00:00: 23:59:00No [id number] iJPBHFK51 mL DAILY (route: oral)Med Classification: Gastrointestinal Therapy Agentssimethicone 80 mg chewable droikd6496-72-04 00:00: 23:59:[id number] tablet4 TIMES DAILY1 tablet 4 TIMES DAILY (route: oral)Med Classification: Gastrointestinal Therapy Agents valganciclovir 450 mg sufmcm3330-07-73 00:00: 23:59:[id number] tablet2 TIMES DAILY2 tablet 2 TIMES DAILY (route: oral)Med Classification: Anti- Infective AgentsAspirin Childrens 81 mg chewable tguzqu3306-38-95 00:00:00Yes [id number] tabletDAILY1 tablet DAILY (route: oral)Med Classification: Hematological AgentsBactrim DS 800 mg-160 mg nopdlv8076-96-33 00:00:00Yes [id number] tablet3 TIMES A WEEK1 tablet 3 TIMES A WEEK (route: oral)Med Classification: Anti-Infective AgentsDilaudid (PF) 1 mg/mL injection syringe 2025-02-15 00:00:07Ffx97958083365.5 mLEVERY 8 HOURS0.5 mL EVERY 8 HOURS (route: injection)Med Classification: Analgesic, Anti-inflammatory or Antipyretic gabapentin 100 mg tsvqkqp3609-65-46 00:00:[id number] capsule3 TIMES DAILY1 capsule 3 TIMES DAILY (route: oral)Med Classification: Central Nervous System AgentsLasix 20 mg lyuftz6204-43-11 00:00:[id number] tablet2 TIMES DAILY1 tablet 2 TIMES DAILY (route: oral)Med Classification: Cardiovascular Therapy AgentsLokelma 10 gram oral powder klzvmm0873-44-87 00:00: 23:59:00No [id number] powder in packetDAILY1 powder in packet DAILY (route: oral)Med Classification: Electrolyte Balance-Nutritional Productsmagnesium 400 mg (as magnesium oxide) meoyuwc5045-32-30 00:00:[id number] capsule2 TIMES DAILY1 capsule 2 TIMES DAILY (route: oral)Med Classification: Electrolyte Balance- Nutritional Productsmethocarbamol 500 mg jnhxuf9648-07-28 00:00:[id number] tablet3 TIMES DAILY1 tablet 3 TIMES DAILY (route: oral)Med Classification: Locomotor Systemmirtazapine 7.5 mg xgijcp7699-53-17 00:00:[id number] tabletDAILY1 tablet DAILY (route: oral)Med Classification: Central Nervous System AgentsMultiple Vitamins ciizjj4294-24-19 00:00:[id number] tablet DAILY1 tablet DAILY (route: oral)Med Classification: Electrolyte Balance- Nutritional ProductsPain Relief Extra Strength (acetaminophen) 500 mg tablet 2025-02-15 00:00:[id number] tabletEVERY 6 HOURS1 tablet EVERY 6 HOURS (route: oral)Med Classification: Analgesic, Anti-inflammatory or Antipyretic Prograf 1 mg tkglzib4511-29-29 00:00:[id number] capsule2 TIMES DAILY3 capsule 2 TIMES DAILY (route: oral)Med Classification: Immunosuppressive Agents Protonix 40 mg tablet,delayed sdappqi1506-86-84 00:00:[id number] tablet DAILY1 tablet DAILY (route: oral)Med Classification: Gastrointestinal Therapy Agentsursodiol 300 mg ybghlii1242-23-82 00:00:[id number] capsuleDAILY1 capsule DAILY (route: oral)Med Classification: Gastrointestinal Therapy Agents sodium polystyrene sulfonate oral fwplol5312-97-09 00:00:[id number] instructionsAS DIRECTEDPer instructions DIRECTED (route: oral)Med Classification: Electrolyte Balance-Nutritional Products Vital Signs Vital Name Observation Time Observation Value Commen ts Temperature 2025-03-18 11:14:00.000 98.2 [degF] Nvfxozpxoyr9740-50-67 11:06:00.52677.1 [degF]Gelrdgrzuzn5983-59-42 10:17:00.000 97.8 [degF]Npkqcjbglzz8560-26-07 10:14:00.34795 [degF]Iqbavgrasoz0668-05-54 11:33:00.29377.6 [degF]Xdfbeteruwd3372-51-73 09:22:00.60592.8 [degF]Temperature 2025-03-04 13:53:00.92495 [degF]Iryggcvqeno5225-38-74 08:54:00.31051.8 [degF] Vdneunbzwgt2786-71-67 12:39:00.82752.6 [degF]Nphntlzozrf6932-99-94 09:31:00.000 97.8 [degF]Yworybmrsdc1998-55-89 10:29:00.98415.9 [degF]Iveolthwuyp7197-94-26 11:48:00.51315.4 [degF]Zgxyteyiatd2552-28-68 10:34:00.37943 [degF]Temperature 2025-02-19 13:38:00.85326.6 [degF]Pceuonwfcbp8848-18-99 12:34:00.41074.6 [degF] BMI (%)2025-02-17 12:34:00.04125 kg/x7Qmtxcv3586-15-49 12:34:00.06028 [in_us] Reddk2849-50-68 11:14:00.04877 /nyfEmdhu7536-99-26 11:06:00.99803 /minPulse 2025-03-11 10:17:00.71531 /zxdBsirm7732-95-51 10:14:00.00724 /gvoCjmuh3731-05-04 11:33:00.47482 /anyVemiu1419-80-58 09:22:00.98712 /lwdHpwhz0175-21-44 13:53:00.48009 /ftsEouxt2312-52-56 08:54:00.80121 /vwdKzuwe3800-17-58 12:39:00.29298 /opvMhgni2354-96-08 09:31:00.52684 /mddNkepp5384-13-14 10:29:00.17945 /bnrZstgp9793-53-91 11:48:00.14965 /qtiZnncw1522-32-85 10:34:00.46037 /dxaXtnsf3694-13-67 13:38:00.44199 /vtnPcfxb7802-40-93 12:34:00.04964 /minO2 Saturation (%)2025-03-18 11:14:00.74402 %O2 Saturation (%) 2025-03-14 11:08:00.60918 %O2 Saturation (%)2025-03-11 10:17:00.61069 %O2 Saturation (%)2025-03-10 10:14:00.33246 %O2 Saturation (%)2025-03-07 11:33:00.07820 %O2 Saturation (%)2025-03-04 13:53:00.89382 %O2 Saturation (%) 2025-02-28 12:39:00.12352 %O2 Saturation (%)2025-02-24 11:56:00.908938 %O2 Saturation (%)2025-02-20 10:34:00.54648 %O2 Saturation (%)2025-02-19 13:38:00.91851 %O2 Saturation (%)2025-02-17 12:34:00.86720 %Respirations 2025-03-18 11:14:00.72664 /gmpCvumzwzyewkm3204-36-58 11:06:00.14304 /min Xakgrufudpjb5097-28-91 10:17:00.87788 /eihKidezotvlhdb5574-51-82 10:14:00.15828 /oghCoplbvxnnrlj4587-61-99 11:33:00.71397 /jolNsiskdysziak0191-59-46 09:22:00.70504 /jpjNzicqlhqtyod1160-12-77 13:53:00.28442 /minRespirations 2025-03-03 08:54:00.88252 /cvpKszlsossqnvg2417-59-53 12:39:00.31919 /min Ibakmqlozqmn4151-22-59 09:31:00.72511 /rchLyurokklimzm9686-50-17 10:29:00.71604 /lgdHmxsmcdisuec5375-05-92 11:48:00.70993 /qnpXymqtgmfvtsj3742-67-57 10:34:00.14802 /vswXkqwqovyzzqb8247-33-26 13:38:00.22047 /minRespirations 2025-02-17 12:34:00.90472 /minWeight (lbs)2025-03-07 11:34:00.648331 [lb_av] Weight (lbs)2025-03-04 14:04:00.937308 [lb_av]Weight (lbs)2025-02-28 12:40:00.364945 [lb_av]Weight (lbs)2025-02-24 11:55:00.110456 [lb_av]Weight (lbs)2025-02-17 12:34:00.729810 [lb_av]Systolic Blood Blttjrjq9496-65-59 11:14:00.377917 mm[Hg]Systolic Blood Kfbrtsxo8368-95-45 11:06:00.808478 mm[Hg] Systolic Blood Jnaohzyw9650-02-08 10:17:00.146287 mm[Hg]Systolic Blood Pressure 2025-03-10 10:14:00.743853 mm[Hg]Systolic Blood Swsgduhu2688-47-72 11:33:00.000 121 mm[Hg]Systolic Blood Raknzkkd9315-20-48 09:22:00.190767 mm[Hg]Systolic Blood Dhfiglla3960-60-38 13:53:00.860087 mm[Hg]Systolic Blood Jdgokpqh1988-61-74 08:54:00.430753 mm[Hg]Systolic Blood Gavvnpxm2238-10-08 12:39:00.581025 mm[Hg] Systolic Blood Pgqmknwr7027-53-59 09:31:00.577822 mm[Hg]Systolic Blood Pressure 2025-02-25 10:32:00.074079 mm[Hg]Systolic Blood Yofqpzio2147-51-69 11:48:00.000 122 mm[Hg]Systolic Blood Chrtrdrr8242-34-74 10:34:00.816360 mm[Hg]Systolic Blood Fqnqmllp9116-59-30 13:38:00.374825 mm[Hg]Systolic Blood Nbdgmxjj7393-32-39 12:34:00.048746 mm[Hg]Diastolic Blood Umsvoygz0548-29-26 11:14:00.79407 mm[Hg] Diastolic Blood Vaeeqfqu8253-01-26 11:06:00.55517 mm[Hg]Diastolic Blood Pressure 2025-03-11 10:17:00.30217 mm[Hg]Diastolic Blood Katlrtne5909-07-54 10:14:00.000 70 mm[Hg]Diastolic Blood Dwczlqmj0240-86-29 11:33:00.19006 mm[Hg]Diastolic Blood Qmcenxqi5484-66-41 09:22:00.57166 mm[Hg]Diastolic Blood Vajfqeem7332-34-34 13:53:00.27878 mm[Hg]Diastolic Blood Sgbqswkg8328-45-43 08:54:00.87444 mm[Hg] Diastolic Blood Fsijfefo6789-63-12 12:39:00.96678 mm[Hg]Diastolic Blood Pressure 2025-02-26 09:31:00.34647 mm[Hg]Diastolic Blood Fdlyzyxn1353-84-84 10:32:00.000 77 mm[Hg]Diastolic Blood Vfsrwswf5190-71-22 11:48:00.82415 mm[Hg]Diastolic Blood Idevxdfz2534-16-68 10:34:00.28951 mm[Hg]Diastolic Blood Vpdltzxl0218-62-77 13:38:00.26939 mm[Hg]Diastolic Blood Lyzvsqpi6361-55-67 12:34:00.70290 mm[Hg] Plan of Treatment Planned Activity Planned Date Details Comments Future Scheduled Test SKILLED NURSE TO EVALUATE PATIENT, IDENTIFY PRIMARY AND CO-MORBID CONDITIONS CODED PER CODING GUIDELINES, AND DEVELOP PATIENT SPECIFIC PLAN OF CARE THAT INCLUDES PATIENT GOAL FOR HOME HEALTH. PLAN OFCARE TO INCLUDE 3 PRN VISIT(S) FOR OASIS DATA COLLECTION/COMPREHENSIVE ASSESSMENT AT TIMEPOINTS PERFEDERAL REGULATIONS. THIS INCLUDES VISITS FOR MATEO, RECERT, SCIC, AND/OR DC. [code = SKILLED NURSE TO EVALUATE PATIENT, IDENTIFY PRIMARY AND CO-MORBID CONDITIONS CODED PER CODING GUIDELINES, AND DEVELOP PATIENT SPECIFIC PLAN OF CARE THAT INCLUDES PATIENT GOAL FOR HOME HEALTH. PLAN OF CARE TO INCLUDE3 PRN VISIT(S) FOR OASIS DATA COLLECTION/COMPREHENSIVE ASSESSMENT AT TIMEPOINTS PER FEDERAL REGULATIONS. THIS INCLUDES VISITS FOR MATEO, RECERT, SCIC, AND/OR DC.]Future Scheduled TestSKILLED NURSE TO REVIEW PATIENT MEDICATIONS (PRESCRIPTION/OTC). INSTRUCT PATIENT/CAREGIVER ON ALL MEDICATIONS INCLUDING PURPOSE, WHEN TO TAKE, IMPORTANCE OF MEDICATION ADHERENCE, MONITORING OF EFFECTIVENESS, ADVERSE DRUG REACTIONS, POSSIBLE SIDE EFFECTS, AND WHEN TO NOTIFY AGENCY OR PHYSICIAN/PROVID ER OF ANY CONCERNS. [code = SKILLED NURSE TO REVIEW PATIENT MEDICATIONS (PRESCRIPTION/OTC). INSTRUCT PATIENT/CAREGIVER ON ALL MEDICATIONS INCLUDING PURPOSE, WHEN TO TAKE, IMPORTANCE OF MEDICATION ADHERENCE, MONITORING OF EFFECTIVENESS, ADVERSE DRUG REACTIONS, POSSIBLE SIDE EFFECTS, AND WHEN TO NOTIFY AGENCY OR PHYSICIAN/PROVIDER OF ANY CONCERNS.]Future Scheduled TestPATIENT HAS A RISK OF HOSPITALIZATION AND ED [...] METHODS TO REDUCE AVOIDABLE HOSPITALIZATION AND ED USE.]Future Scheduled TestSKILLED NURSE TO PROVIDE INSTRUCTION TO PATIENT/CAREGIVER RELATED TO DISCHARGE PLANNING. [code = SKILLED NURSE TO PROVIDE INSTRUCTION TO PATIENT/CAREGIVER RELATED TO DISCHARGE PLANNING.]Future Scheduled TestSKILLED NURSE TO PERFORM ENVIRONMENTAL SAFETY RISK ASSESSMENT AND FALL RISK ASSESSMENT AND PROVIDE INSTRUCTION TO IMPLEMENT ENVIRONMENTAL SAFETY AND FALL PREVENTION STRATEGIES THROUGHOUT THE CERTIFICATION PERIOD. SKILLED NURSE WILL MAINTAIN SITUATIONAL AWARENESS AND WILL NOTIFY CLINICAL AUDIOLOGY ASSISTANT AND PHYSICIAN/PROVIDER WITH ANY CHANGE IN CONDITION. [code = SKILLED NURSE TO PERFORM ENVIRONMENTAL SAFETY RISK ASSESSMENT AND FALL RISK ASSESSMENT AND PROVIDE INSTRUCTION TO IMPLEMENT ENVIRONMENTAL SAFETY AND FALL PREVENTION STRATEGIES THROUGHOUT THE CERTIFICATION PERIOD. SKILLED NURSE WILL MAINTAIN SI TUATIONAL AWARENESS AND WILL NOTIFY CLINICAL AUDIOLOGY ASSISTANT AND PHYSICIAN/PROVIDER WITH ANY CHANGE IN CONDITION.]Future Scheduled TestSKILLED NURSE FOR OBSERVATION AND ASSESSMENT OF PATIENT S PAIN LEVEL AND EFFECTIVENESS OF PAIN MANAGEMENT REGIMEN. SKILLED NURSE TO INSTRUCT PATIENT/CAREGIVER REGARDING PHARMACOLOGIC AND NON-PHARMACOLOGIC PAIN CONTROL MEASURES. SKILLED NURSE TO REPORT TO PHYSICIAN IF PAIN LEVEL IS OUTSIDE OF ESTABLISHED PARAMETERS. [code = SKILLED NURSE FOR OBSERVATION AND ASSESSMENT OF PATIENT S PAIN LEVEL AND EFFECTIVENESS OF PAIN MANAGEMENT REGIMEN. SKILLED NURSE TO INSTRUCT PATIENT/CAREGIVER REGARDING PHARMA COLOGIC AND NON-PHARMACOLOGIC PAIN CONTROL MEASURES. SKILLED NURSE TO REPORT TO PHYSICIAN IF PAIN LEVEL IS OUTSIDE OF ESTABLISHED PARAMETERS.]Future Scheduled TestSKILLED NURSE TO ASSESS PATIENT'S SKIN INTEGRITY AND INSTRUCT PATIENT/CAREGIVER ON MEASURES TO PREVENT PRESSURE ULCERS. [code = SKILLED NURSE TO ASSESS PATIENT'S SKIN INTEGRITY AND INSTRUCT PATIENT/CAREGIVER ON MEASURES TO PREVENT PRESSURE ULCERS.]Future Scheduled TestSN TO INSTRUCT PATIENT/CAREGIVER ON COPD MANAGEMENT UTILIZING THE BREATHING WITH CARE SPECIALTY PROGRAM. [code = SN TO INSTRUCT PATIENT/CAREGIVER ON COPD MANAGEMENT UTILIZING THE BREATHING WITH CARE SPECIALTY PROGRAM.]Future Scheduled TestSKILLED NURSE TO PROVIDE ASSESSMENT AND TEACHING/REINFORCEMENT OF MANAGEMENT OF DEPRESSION INCLUDING DISEASE PROCESS, MEDICATION MANAGEMENT, COPING SKILLS AND IDENTIFY CHANGES ASSOCIATED WITH DEPRESSIVE DISORDERS FOR EARLY INTERVENTION. [code = SKILLED NURSE TO PROVIDE ASSESSMENT AND TEACHING/REINFORCEMENT OF MANAGEMENT OF DEPRESSION INCLUDING DISEASE PROCESS, MEDICATION MANAGEMENT, COPING SKILLSAND IDENTIFY CHANGES ASSOCIATED WITH DEPRESSIVE DISORDERS FOR EARLY INTERVENTION.] Future Scheduled TestNEED FOR SKILLED TEACHING AND INTERVENTION RELATED TO STAGE II PRESSURE ULCER MID BACK AREA NEW ORDER TO KEEP AREA OPEN TO AIR CLEAN AND DRY MAY USE A FOAM DRESSING IF DRAINAGE CHANGE 3 X WEEKLY 1-2 PRN SKILLED NURSE VISITS FOR WOUND CARE DUE TO COMPLICATIONS. SKILLED NURSE TO OBTAIN WOUND CULTURE PRN S/S OF INFECTION. WOUND CARE WILL BE PERFORMED BY TRAINED CAREGIVER ON DAYS WHEN SKILLED NURSE IS NOT SCHEDULED FOR A VISIT. DISCONTINUE WOUND CARE/SUPPLIES ONCE WOUND IS HEALED. [code = NEED FOR SKILLED TEACHING AND INTERVENTION RELATED TO STAGE II PRESSURE ULCER MID BACK AREA NEW ORDER TO KEEP AREA OPEN TO AIR CLEAN AND DRY MAY USE A FOAM DRESSING IF DRAINAGE CHANGE 3 X WEEKLY 1-2 PRN SKILLED NURSE VISITS FOR WOUND CARE DUE TO COMPLICATIONS. SKILLED NURSE TO OBTAIN WOUND CULTURE PRN S/S OFINFECTION. WOUND CARE WILL BE PERFORMED BY TRAINED CAREGIVER ON DAYS WHEN SKILLED NURSE IS NOT SCHEDULED FOR A VISIT. DISCONTINUE WOUND CARE/SUPPLIES ONCE WOUND IS HEALED.]Future Scheduled Test SKILLED NURSE FOR O/A OF RESPIRATORY SYSTEM TO IDENTIFY CHANGES ASSOCIATED WITH EXACERBATION AND TOPROVIDE SKILLED TEACHING ON MANAGEMENT OF RESPIRATORY FAILURE RESPIRATORY DISEASE PROCESS. [code = SKILLED NURSE FOR O/A OF RESPIRATORY SYSTEM TO IDENTIFY CHANGES ASSOCIATED WITH EXACERBATION AND TO PROVIDE SKILLED TEACHING ON MANAGEMENT OF RESPIRATORY FAILURE RESPIRATORY DISEASE PROCESS.] Future Scheduled TestSKILLED NURSE TO PROVIDE TEACHING/REINFORCEMENT RELATED TO URINARY INCONTINENCE. [code = SKILLED NURSE TO PROVIDE TEACHING/REINFORCEMENT RELATED TO URINARY INCONTINENCE.]Future Scheduled TestSKILLED NURSE MAY COLLECT URINE SAMPLE FOR URINE REAGENT STRIP TESTING AND/OR URINALYSIS WITH C S 1-3 PRN IF INDICATED FOR SIGNS AND SYMPTOMS OF UTI. IF REAGENT STRIP TEST IS POSITIVE FOR UTI, SKILLED NURSE TO TAKE URINE SAMPLE TO LAB FOR URINE C S AND REPORT RESULTS TO PHYSICIAN. [code = SKILLED NURSE MAY COLLECT URINE SAMPLE FOR URINE REAGENT STRIP TESTING AND/OR URINALYSIS WITH C S 1-3 PRN IF INDICATED FOR SIGNS AND SYMPTOMS OF UTI. IF REAGENT STRIP TEST IS POSITIVE FOR UTI, SKILLED NURSE TO TAKE URINE SAMPLE TO LAB FOR URINE C S AND REPORT RESULTS TO PHYSICIAN.]Future Scheduled TestSKILLED NURSE FOR INSTRUCTION/ REINFORCEMENT OF NEEDS RELATED TO NUTRITION/HYDRATION. [code = SKILLED NURSE FOR INSTRUCTION/ REINFORCEMENT OF NEEDS RELATED TO NUTRITION/HYDRATION.]Future Scheduled TestSKILLED NURSE FOR O/A OF SELF-CARE DEFICITS AND TO PROVIDE TEACHING RELATED TO SAFE PROVISION OF ADLS. [code = SKILLED NURSE FOR O/A OF SELF-CARE DEFICITS AND TO PROVIDE TEACHING RELATED TO SAFE PROVISION OF ADLS.]Future Scheduled TestSKILLED NURSE FOR O/A AND SKILLED TEACHING RELATED TO SIGNS AND SYMPTOMS OF INFECTION AND INFECTION CONTROL MEASURES. [code = SKILLED NURSE FOR O/A AND SKILLED TEACHING RELATED TO SIGNS AND SYMPTOMS OF INFECTION AND INFECTION CONTROL MEASURES.]Future Scheduled TestPHYSICAL THERAPIST TO EVALUATE PATIENT FOR THERAPY SERVICE [code = PHYSICAL THERAPIST TO EVALUATE PATIENT FOR THERAPY SERVICE]Future Scheduled Test OCCUPATIONAL THERAPIST TO EVALUATE PATIENT FOR THERAPY SERVICE [code = OCCUPATIONAL THERAPIST TO EVALUATE PATIENT FOR THERAPY SERVICE]Future Scheduled TestSKILLED NURSE FOR O/A, TEACHING RELATED TO LIVER TRANSPLANT (SPECIFY LIVER/PANCREATIC DISEASE) FOR EARLY IDENTIFICATION OF EXACERBATION OF DISEASE PROCESS. [code = SKILLED NURSE FOR O/A, TEACHING RELATED TO LIVER TRANSPLANT (SPECIFY LIVER/PANCREATIC DISEASE) FOR EARLY IDENTIFICATION OF EXACERBATIONOF DISEASE PROCESS.]Future Scheduled TestSKILLED NURSE FOR O/A AND SKILLED TEACHING RELATED TO SIGNS AND SYMPTOMS AND MANAGEMENT OF FRACTURE(SPECIFY MUSCULOSKELETAL DISEASE) [code = SKILLED NURSE FOR O/A AND SKILLED TEACHING RELATED TO SIGNS AND SYMPTOMS AND MANAGEMENT OF FRACTURE (SPECIFY MUSCULOSKELETAL DISEASE)]Future Scheduled TestPHYSICAL THERAPIST TO EVALUATE PATIENT SECONDARY TO FUNCTIONAL DEFICITS/SAFETY CONCERNS. P.T. TO ASSESS BEST PRACTICE INTERVENTIONS TO ASSIST PT TO IMPROVE/STABILIZE MEDICAL STATUS AND PREVENT RE-HOSPITALIZATION. MEASURES INCLUDING REVIEW AND IDENTIFICATION OF CONCERNS FOR THE FOLLOWING AREAS: ENVIR ONMENTAL SAFETY ISSUES AND FALLS, EQUIPMENT NEEDS, DECLINE OF FUNCTION, PAIN, AND DISEASE MANAGEMENT. P.T. TO ESTABLISH/UPGRADE/DOWNGRADE A HEP AND INSTRUCT PT ON EXERCISE PRECAUTIONS. THE HEP MAY INCLUDE SEATED/SUPINE/STANDING THER EX TARGETING BLE/CORE STRENGTH/FLEXIBILITY AND BALANCE TRAINING ASAPPROPRIATE TO IMPROVE FUNCTIONAL STRENGTH AND BALANCE. PHYSICAL THERAPY TO INSTRUCT PATIENT/CAREGIVER ON SAFE TRANSFER TECHNIQUES USING PROPER BODY MECHANICS AND EQUIPMENT. PHYSICAL THERAPY TO INSTRUCT PATIENT/CAREGIVER ON GAIT TRAINING TECHNIQUES USING APPROPRIATE ASSISTIVE DEVICE, PROPER BODY MECHANICS TO IMPROVE MOBILITY, AND PREVENT INJURY OF PATIENT AND/OR CAREGIVER. PHYSICAL THERAPY TO ASSESS AND RECOMMEND HOME SAFETY ADAPTATIONS AND EDUCATE PATIENT /CAREGIVER ON FALL PREVENTION STRATEGIES. PHYSICAL THERAPY FOR OBSERVATION AND ASSESSMENT OF PAIN, EFFECTIVENESS OF PAIN MANAGEMENT REGIMEN AND SKILLED TEACHING RELATED TO PAIN MANAGEMENT. THERAPIST TO REPORT INCREASED PAIN LEVEL TO PHYSICIAN FOR PROMPT INTERVENTION. PHYSICAL THERAPY TO INSTRUCT PATIENT/CAREGIVER ON BALANCE AND BALANCE STRATEGIES TO IMPROVE SAFE MOBILITY AND REDUCE RISK FOR FALL AND INJURY THERAPIST TO REVIEW PATIENT MEDICATIONS (PRESCRIPTION/OTC). INSTRUCT PATIENT/CAREGIVER ON ALL MEDICATIONS INCLUDING PURPOSE, WHEN TO TAKE, IMPORTANCE OF MEDICATION ADHERENCE, MONITORING OF EFFECTIVENESS, ADVERSE DRUG EVENTS, POSS IBLE SIDE EFFECTS, AND WHEN TO NOTIFY AGENCY OR PHYSICIAN/PROVIDER OF ANY CONCERNS. THERAPIST TO PROVIDE FUNCTIONAL STRATEGIES/TECHNIQUES FOR MANAGING MEDICATIONS. [code = PHYSICAL THERAPIST TO EVALUATE PATIENT SECONDARY TO FUNCTIONAL DEFICITS/SAFETY CONCERNS. P.T. TO ASSESS BEST PRACTICE INTERVENTIONS TO ASSIST PT TO IMPROVE/STABILIZE MEDICAL STATUS AND PREVENT RE-HOSPITALIZATION. MEASURES INCLUDING REVIEW AND IDENTIFICATION OF CONCERNS FOR THE FOLLOWING AREAS: ENVIRONMENTAL SAFETY ISSUES AND FALLS, EQUIPMENT NEEDS, DECLINE OF FUNCTION, PAIN, AND DISEASE MANAGEMENT. P.T. TO ESTABLISH/UPGRADE/DOWNGRADE A HEP AND INSTRUCT PT ON EXERCISE PRECAUTIONS. THE HEP MAY INCLUDE SEATED/SUPINE/STANDINGTHER EX TARGETING BLE/CORE STRENGTH/FLEXIBILITY AND BALANCE TRAINING APPROPRIATE TO IMPROVE FUNCTIONAL STRENGTH AND BALANCE. PHYSICAL THERAPY TO INSTRUCT PATIENT/CAREGIVER ON SAFE TRANSFER TECHNIQUES USING PROPER BODY MECHANICS AND EQUIPMENT. PHYSICAL THERAPY TO INSTRUCT PATIENT/CAREGIVER ON GAIT TRAINING TECHNIQUES USING APPROPRIATE ASSISTIVE DEVICE, PROPER BODY MECHANICS TO IMPROVE MOBILITY,AND PREVENT INJURY OF PATIENT AND/OR CAREGIVER. PHYSICAL THERAPY TO ASSESS AND RECOMMEND HOME SAFETY ADAPTATIONS AND EDUCATE PATIENT /CAREGIVER ON FALL PREVENTION STRATEGIES. PHYSICAL THERAPY FOR OBSERVATION AND ASSESSMENT OF PAIN, EFFECTIVENESS OF PAIN MANAGEMENT REGIMEN AND SKILLED TEACHING RELATED TO PAIN MANAGEMENT. THERAPIST TO REPORT INCREASED PAIN LEVEL TO PHYSICIAN FOR PROMPT INTERVENTION. PHYSICAL THERAPY TO INSTRUCT PATIENT/CAREGIVER ON BALANCE AND BALANCE STRATEGIES TO IMPROVE SAFE MOBILITY AND REDUCE RISK FOR FALL AND INJURY THERAPIST TO REVIEW PATIENT MEDICATIONS (PRESCRIPTION/OTC). INSTRUCT PATIENT/CAREGIVER ON ALL MEDICATIONS INCLUDING PURPOSE, WHEN TO TAKE, IMPORTANCE OF MEDICATION ADHERENCE, MONITORING OF EFFECTIVENESS, ADVERSE DRUG EVENTS, POSSIBLE SIDE EFFECTS, AND WHENTO NOTIFY AGENCY OR PHYSICIAN/PROVIDER OF ANY CONCERNS. THERAPIST TO PROVIDE FUNCTIONAL STRATEGIES/TECHNIQUES FOR MANAGING MEDICATIONS.]Future Scheduled TestOCCUPATIONAL THERAPIST TO EVALUATE PATIENT SECONDARY TO FUNCTIONAL DEFICITS/SAFETY CONCERNS IDENTIFIED DURING EVALUATION OCCUPATIONAL THERAPIST TO ASSESS BEST PRACTICE INTERVENTIONS TO ASSIST PATIENTS TO IMPROVE OR STABILIZE MEDICAL STATUS AND PREVENT RE-HOSPITALIZATION. MEASURES INCLUDING REVIEW AND IDENTIFICATION OF CONCERNS FOR THE FOLLOWING AREAS: ENVIRONMENTAL SAFETY ISSUES AND FALLS, PRESSURE ULCERS, PAIN, AND DISEASE MANAGEMENT. OCCUPATIONAL THERAPY TO ESTABLISH /UPGRADE/DOWNGRADE THERAPEUTIC EXERCISE PROGRAM AND INSTRUCT PATIENT/CAREGIVER ON EXERCISE PRECAUTIONS WITH WRITTEN HOME PROGRAM. MAY INCLUDE BUE PROM, AAROM, AROM, RROM APPROPRIATE TO IMPROVE FUNCTIONAL STRENGTH AND/OR RANGE OF MOTION. OCCUPATIONAL THERAPY TO INSTRUCT PATIENT/CAREGIVER ON SAFE TRANSFER TECHNIQUES USING PROPER BODY MECHANICS AND EQUIPMENT TO ENHANCE PARTICIPATION IN ADL S. OCCUPATIONAL THERAPY TO ASSESS AND RECOMMEND HOME SAFETY ADAPTATIONS AND EDUCATE PATIENT /CAREGIVER ON FALL PREVENTION STRATEGIESTO ENHANCE PARTICIPATION IN ADL S. OCCUPATIONAL THERAPY TO PROVIDE PATIENT/CAREGIVER WITH INSTRUCTIONS AND RECOMMENDATIONS TO IMPROVE ADL S INCLUDING BATHING, DRESSING WHILE USING APPROPRIATE ADAPTIVE DEVICES RECOMMENDED. OCCUPATIONAL THERAPY TO PROVIDE PATIENT/CAREGIVER WITH INSTRUCTIONS AND RECOMMENDATIONS TO IMPROVE IADL S INCLUDING MEAL PREP WHILE USING APPROPRIATE ADAPTIVE DEVICES RECOMMENDED. THERAPIST TO REVIEW PATIENT MEDICATIONS (PRESCRIPTION/OTC). INSTRUCT PATIENT/CAREGIVER ON ALL MEDICATIONS INCLUDING PURPOSE, WHEN TO TAKE, IMPORTANCE OF MEDICATION ADHERENCE, MONITORING OF EFFECTIVENESS, ADVERSE DRUG EVENTS, POSSIBLE SIDE EFFECTS, AND WHEN TO NOTIFY AGENCY OR PHYSICIAN/PROVIDER OF ANY CONCERNS. THERAPIST TO PROVIDE FUNCTIONAL STRATEGIES/TECHNIQUES FOR MANAGING MEDICATIONS. [code = OCCUPATIONAL THERAPIST TO EVALUATE PATIENT SECONDARY TO FUNCTIONAL DEFICITS/SAFETY CONCERNS IDENTIFIED DURING EVALUATION OCCUPATIONAL THERAPIST TO ASSESS BEST PRACTICE INTERVENTIONS TO ASSIST PATIENTS TO IMPROVE OR STABILIZE MEDICAL STATUS AND PREVENT RE- HOSPITALIZATION. MEASURES INCLUDINGREVIEW AND IDENTIFICATION OF CONCERNS FOR THE FOLLOWING AREAS: ENVIRONMENTAL SAFETY ISSUES AND FALLS, PRESSURE ULCERS, PAIN, AND DISEASE MANAGEMENT. OCCUPATIONAL THERAPY TO ESTABLISH /UPGRADE/DOWNGRADE THERAPEUTIC EXERCISE PROGRAM AND INSTRUCT PATIENT/CAREGIVER ON EXERCISE PRECAUTIONS WITH WRITTEN HOME PROGRAM. MAY INCLUDE BUE PROM, AAROM, AROM, RROM APPROPRIATE TO IMPROVE FUNCTIONAL STRENGTH AND/OR RANGE OF MOTION. OCCUPATIONAL THERAPY TO INSTRUCT PATIENT/CAREGIVER ON SAFE TRANSFER TECHNIQUES USING PROPER BODY MECHANICS AND EQUIPMENT TO ENHANCE PARTICIPATION IN ADL S. OCCUPATIONAL THERAPYTO ASSESS AND RECOMMEND HOME SAFETY ADAPTATIONS AND EDUCATE PATIENT /CAREGIVER ON FALL PREVENTION STRATEGIES TO ENHANCE PARTICIPATION IN ADL S. OCCUPATIONAL THERAPY TO PROVIDE PATIENT/CAREGIVER WITH INSTRUCTIONS AND RECOMMENDATIONS TO IMPROVE ADL S INCLUDING BATHING, DRESSING WHILE USING APPROPRIATE ADAPTIVE DEVICES RECOMMENDED. OCCUPATIONAL THERAPY TO PROVIDE PATIENT/CAREGIVER WITH INSTRUCTIONS AND RECOMMENDATIONS TO IMPROVE IADL S INCLUDING MEAL PREP WHILE USING APPROPRIATE ADAPTIVE DEVICES RECOMMENDED. THERAPIST TO REVIEW PATIENT MEDICATIONS (PRESCRIPTION/OTC). INSTRUCT PATIENT/CAREGIVER ON ALL MEDICATIONS INCLUDING PURPOSE, WHEN TO TAKE, IMPORTANCE OF MEDICATION ADHERENCE, MONITORING OF EFFECTIVENESS, ADVERSE DRUG EVENTS, POSSIBLE SIDE EFFECTS, AND WHEN TO NOTIFY AGENCY OR PHYSICIAN/PROVIDER OF ANY CONCERNS. THERAPIST TO PROVIDE FUNCTIONAL STRATEGIES/TECHNIQUES FOR MANAGING MED ICATIONS.][id number] Goal - TO GET STRONGERGoalProvider Goal - A PLAN OF CARE WILL BE ESTABLISHED THAT MEETS PATIENT'S PENITENTIARY NEEDS AND IN CLUDES PATIENT GOAL FOR HOME HEALTH.GoalProvider Goal - PATIENT/CAREGIVER WILL VERBALIZE UNDERSTANDING OF EDUCATION PROVIDED ON MEDICATIONSBY THE END OF THE CERTIFICATION PERIOD.GoalProvider Goal - PATIENT WILL HAVE SUPPORT MEASURES ESTABLISHED TO PREVENT HOSPITALIZATION AND ED USE AND PATIENT/CAREGIVER WILL VERBALIZE/DEMONSTRATE METHODS TO REDUCE AVOIDABLE HOSPITALIZATION AND ED USE BY END OF EPISODE.GoalProvider Goal - PATIENT/CAREGIVER WILL VERBALIZE UNDERSTANDING OF DISCHARGE PLANNING INSTRUCTIONS BY DATE OF DISCHARGE.Goal Provider Goal - PATIENT/CAREGIVER WILL VERBALIZE/DEMONSTRATE EFFECTIVE ENVIRONMENTAL SAFETY AND FALL PREVENTION STRATEGIES, WILL REMAIN SAFE IN THE COMMUNITY, AND WILL BE FREE OF DANGER TO SELF AND OTHERS THROUGHOUT THE CERTIFICATION PERIOD.GoalProvider Goal - PATIENT/CAREGIVER WILL DEMONSTRATE UNDERSTANDING OF PHARMACOLOGIC AND NONPHARMACOLOGIC PAIN CONTROL MEASURES AND PATIENT WILL HAVE IMPROVEMENT IN PAIN INTERFERING WITH ACTIVITY EVIDENCED BY PAIN AT A LEVEL THAT IS ACCEPTABLE TO THE PATIENT AND PAIN LEVEL WITHIN ESTABLISHED PARAMETERS BY END OF CERTIFICATION PERIOD.GoalProvider Goal - PATIENT/CAREGIVER WILL VERBALIZE UNDERSTANDING OF PRESSURE ULCER PREVENTION BY END OF THE EPISODE.GoalProvider Goal - PATIENT/CAREGIVER WILL DEMONSTRATE MANAGEMENT OF COPD A RESULT OF PARTICIPATION IN BREATHING WITH CARE SPECIALTY PROGRAM.GoalProvider Goal - PATIENT/CAREGIVER WILL VERBALIZE/DEMONSTRATE UNDERSTANDING OF THE MANAGEMENT OF DEPRESSION THROUGHOUT THE CERTIFICATION PERIOD AND SYMPTOMS ARE IDENTIFIED AND MANAGED TO MAINTAIN PATIENT SAFETY IN THE HOME.GoalProvider Goal - WOUND CARE WILL BE COMPLETED AND PATIENT WILL HAVE IMPROVED WOUND STATUS EVIDENCED BY NO SIGNS AND SYMPTOMS OF INFECTION, DECREASED WOUND SIZE, AND/OR NO COMPLICATIONS BY THE END OF THE CERTIFICATION PERIOD.GoalProvider Goal - PATIENT/CAREGIVER WILL VERBALIZE/DEMONSTRATE MANAGEMENT OF RESPIRATORY FAILURE ... RESPIRATORY DISEASE PROCESS. CHANGES IN RESPIRATORY STATUS WILL BE IDENTIFIED AND REPORTED TO PHYSICIAN FOR PROMPT INTERVENTION THROUGHOUT THE CERTIFICATION PERIOD.GoalProvider Goal - PATIENT / CAREGIVER WILL VERBALIZE UNDERSTANDING OF EFFECTS OF URINARY INCONTINENCEBY THE END OF THE CERTIFICATION PERIOD.GoalProvider Goal - URINE SPECIMEN WILL BE OBTAINED PRN FOR SIGNS AND SYMPTOMS OF UTI AND RESULTS WILL BE REPORTED TO PHYSICIAN THROUGHOUT THE CERTIFICATION PERIOD.GoalProvider Goal - PATIENT/CAREGIVER WILL DEMONSTRATE ABILITY TO SELF MANAGE NEEDS RELATED TO NUTRITION/HYDRATION THROUGHOUT THE EPISODE.GoalProvider Goal - PATIENT/CAREGIVER WILL VERBALIZE/DEMONSTRATE UNDERSTANDING OF SAFE PROVISION OF ADLS BY THE END OF THE CERTIFICATION PERIOD.GoalProvider Goal - PATIENT/CAREGIVER WILL VERBALIZE/DEMONSTRATE UNDERSTANDING OF S/S OF INFECTION AND INFECTION CONTROL MEASURES. SIGNS AND SYMPTOMS OF INFECTION WILL BE IDENTIFIED AND PHYSICIAN NOTIFIED FOR PROMPT INTERVENTION THROUGHOUT THE CERTIFICATION PERIOD.Goal Provider Goal - A PHYSICAL THERAPY EVALUATION TO BE COMPLETED WITH RECOMMENDATIONS AND/OR WRITTEN PLAN OF TREATMENT ESTABLISHED FOR PHYSICIAN S SIGNATURE.GoalProvider Goal - OCCUPATIONAL THERAPY EVALUATION TO BE COMPLETED WITH RECOMMENDATIONS AND WRITTEN PLAN OF TREATMENT ESTABLISHED FOR THE PHYSICIAN S SIGNATURE.GoalProvider Goal - EXACERBATIONS OF LIVER TRANSPLANT LIVER/PANCREATIC DISEASE WILL BE PROMPTLY IDENTIFIED AND INTERVENTIONS IMPLEMENTED TO MINIZMIZE RISKS TO PATIENT BY END OF THE EPISODE.GoalProvider Goal - PATIENT/CAREGIVER WILL VERBALIZE UNDERSTANDING OF FRA MUSCULOSKELETAL DISEASE INCLUDING SIGNS AND SYMPTOMS, MANAGEMENT, AND PRESCRIBED TREATMENT REGIMEN BY END OF EPISODE.GoalProvider Goal - PHYSICAL THERAPY EVALUATION TO BE COMPLETED WITH RECOMMENDATIONS AND/OR WRITTEN TREATMENT PLAN OF CARE ESTABLISHED FOR THE PHYSICIAN S SIGNATURE. VO FOR SKILLED P.T. POC RECEIVED AMY, AGENT OF DR. ROBLEDO, ON 02/19/25 @ 3:25PM. PATIENT/CAREGIVER VERBALIZES UNDERSTANDING OF THE INITIAL BEST PRACTICE RECOMMENDATIONS. PHYSICIAN TO BE NOTIFIED APPROPRIATE FOR ANY CHANGES OR COMPLICATIONS THROUGHOUT THE CERTIFICATION PERIOD. PATIENT/CAREGIVER WILL PERFORM THERAPEUTIC EXERCISE/S AND DEMONSTRATE PARTICIPATION IN A HOME PROGRAM. PATIENT/CAREGIVER WILL DEMONSTRATE SAFE TRANSFERSUSING APPROPRIATE ASSISTIVE DEVICE, BODY MECHANICS AND EQUIPMENT. PATIENT/CAREGIVER WILL DEMONSTRATE IMPROVED GAIT TECHNIQUES TO MINIMIZE RISK OF INJURY. PATIENT/CAREGIVER WILL DEMONSTRATE/VERBALIZE UNDERSTANDING OF RECOMMENDATIONS TO INCREASE SAFETY IN THE HOME AND FALL PREVENTION. INCREASED PAIN OR INEFFECTIVE PAIN CONTROL MEASURES WILL BE IDENTIFIED AND PROMPTLY REPORTED TO THE PHYSICIAN. PATIENT/CAREGIVER WILL DEMONSTRATE EFFECTIVE PAIN MANAGEMENT. PATIENT/CAREGIVER WILL DEMONSTRATE IMPROVED BALANCE AND REDUCE THE RISK OF FALLS AND INJURY. PATIENT/CAREGIVER WILL VERBALIZE/DEMONSTRATE UNDER STANDING OF MEDICATIONS AND STRATEGIES/TECHNIQUES FOR MEDICATION MANAGEMENT BY THE END OF THE CERTIFICATION PERIOD.GoalProvider Goal - OCCUPATIONAL THERAPIST TO EVALUATE PATIENT SECONDARY TO FUNCTIONAL DEFICITS/SAFETY CONCERNS IDENTIFIED DURING EVALUATION. PATIENT/CAREGIVER VERBALIZES UNDERSTANDING OF THE INITIAL BEST PRACTICE RECOMMENDATIONS. PHYSICIAN TO BE NOTIFIED APPROPRIATE FOR ANY CHANGES OR COMPLICATIONSTHROUGHOUT THE CERTIFICATION PERIOD. PATIENT/CAREGIVER WILL PERFORM THERAPEUTIC EXERCISE/S AND DEMONSTRATE PARTICIPATION IN A HOME PROGRAM. PATIENT/CAREGIVER WILL DEMONSTRATE SAFE TRANSFERS USING APPROPRIATE ASSISTIVE DEVICE, BODY MECHANICS AND EQUIPMENT. CAREGIVER/PATIENT WILL DEMONSTRATE/VERBALIZE UNDERSTANDING OF RECOMMENDATIONS TO INCREASE SAFETY IN THE HOME AND FALL PREVENTION PATIENT/CAREGIVER WILL DEMONSTRATE IMPROVED ABILITY TO PERFORM ACTIVITIES OF DAILY LIVING. PATIENT/CAREGIVER WILL DEMONSTRATE IMPROVED ABILITY TO PERFORM INSTRUMENTAL ACTIVITIES OF DAILY LIVING. PATIENT/CAREGIVER [place] VERBALIZE/DEMONSTRATE UNDERSTANDING OF MEDICATIONS AND STRATEGIES/TECHNIQUES FOR MEDICATION MANAGEMENT BY THE END OF THE CERTIFICATION PERIOD. Reason for Visit INDEPENDENT WITH USE OF ASSISTIVE DEVICE Encounters Start Date/Time End Date/Time Encounter Type Admission Type Attending [facility] Care Department Encounter ID Discharge Date Discharge Status Discharge Condition Discharge Reason Percent Goals Met 2025-02-17 00:00:00 2025-03-18 00:00:00 Outpatient ZACKERY DE [facility]ANTOS [id number] 00:00:00DISCHARGE TO HOME OR SELF CAREINDEPENDENT WITH USE OF ASSISTIVE DEVICEGOALS MET ( ONLY)100.00
--- OUTSIDE RECORDS SUMMARY | 2025-03-24 07:06 | XMS_ITS | Encounter Summary ---
Author Organization [facility] Address [address] [place] [address] Care Team Providers Care Bridge/Structure Inspection Team Leader Name Role Phone Rusty Delgado MD Unavailable [phone] Rusty Delgado MD Primary Care Provider Encounter Details DateTypeDepartmentCare Team (Latest Contact Info)Rukwgthsdxw43/24/2025Telephone [facility] [address] [place] [address] [place] [address] Rusty Delgado MD [address] [facility] [address] [place] [address] Social History Tobacco UseTypesPacks/DayYears UsedDateSmoking Tobacco: FormerCigarettesQuit: 1990Smokeless Tobacco: NeverAlcohol UseStandard Drinks/WeekCommentsYes0 (1 standard drink = 0.6 oz pure alcohol)2-3 times per week, 1-2 drinks at a time B1300 Health LiteracyAnswerDate RecordedHow often do you need to have someone help you when you read instructions, pamphlets, or other written material from your doctor or pharmacy?Zbqzdh9812/12/2023Social Connection and Isolation Panel AnswerDate RecordedIn a typical week, how many times do you talk on the phone with family, friends, or neighbors?Never12/12/2023How often do you get together with friends or relatives?Never12/12/2023How often do you attend evangelical or shinto services?Never12/12/2023o you belong to any clubs or organizations such as evangelical groups, unions, fraternal or athletic groups, or school groups?No 12/12/2023How often do you attend meetings of the clubs or organizations you belong to?Never12/12/2023re you , , , , never , or living with a partner?Wnbgemn9212/12/2023UDIT-CAnswerDate RecordedQ1: How often do you have a [...] hard at all12/12/2023HQ-2AnswerDate Recorded Patient Health Questionnaire-2 Tcssa295[facility] [place] of Occupational Health - Occupational Stress QuestionnaireAnswerDate RecordedDo you feel stress - tense, restless, nervous, or anxious, or unable to sleep at night because your mind is troubled all the time - these days?To some nfvaiw2112/12/2023Exercise Vital SignAnswerDate RecordedOn average, how many days [...] you homeless or living in a senior care (including now)?No12/12/2023Sex and Gender InformationValueDate RecordedSex Assigned at VpnbtKphw45/27/2024 1:36 PM EDTLegal KcyRqng5506/29/2022 11:50 PM EDTGender SlhlgzuwBjjk50/27/2024 1:36 PM EDTSexual IjxfvfnvnucJagqwnp28/27/2024 1:36 PM EDTdocumented as of this encounter Miscellaneous Notes * Telephone Encounter - Rachel Colon MA - 03/10/2025 11:15 AM EST Hi, this is Mahsa. 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 I was just calling to report [...] give me a call back. It is [phone], thank you. documented in this encounter Plan of Treatment Not on file documented as of this encounter Visit Diagnoses Not on filedocumented in this encounter Care Teams Team MemberRelationshipSpecialtyStart DateEnd Date Rusty Delgado MD [address] [facility] [address] [place] [address] PCP - [employer]04/17/22 Rusty Delgado MD [address] [place] [address] [place] [address] PCP - GeneralInternal Medicine11/23/22documented as of this encounter
--- OUTSIDE RECORDS SUMMARY | 2025-03-24 07:06 | XMS_ITS | Patient Health Record ---
Author Organization [facility] Rogelio mcginnis Billing Info Address [address] [place] [address] [place] [address] Care Team Providers Care Or Rn Name Role Phone SHANTEL BRITTANY Primary Care Provider [phone] Reason For Referral No Information Medications Medication SIG (Take, Route, Frequency, Duration) Notes Start Date End Date Status Aspirin 81 MG 1 tablet Orally Once a day for 3 0 day(s) ActiveCalciumActiveMultivitamin -1 tablet Orally Once a day for 30 day(s)Active Lisinopril 20 MGTAKE 1 TABLET BY MOUTH EVERY DAY for 90ActiveOmeprazole 40 MG1 capsule Orally Once a day for 30 day(s)ActiveMetoprolol Tartrate 25 MG1 tablet with food Orally Twice a day for 90Active Social History Tobacco Use: Social History Observation [...] Problem Status W/U Status Risk Notes Problem 23465046 Essential hypertension (I10) ActiveconfirmedProblemVertigo (273132375)Vertigo (R42)ActiveconfirmedProblem 058105847Apluplqyn hearing of left ear (H91.92)ActiveconfirmedProblem Supraventricular premature beats (11834974)PAC (premature atrial contraction) (I49.1)OdutwbwvszxeifhZqkaddi514731905Dpaqouwkg platelet count (D69.6)Active dugaqvpbqUdjpvyc619026173Socmlhvb, unspecified type (G47.00)Activeconfirmed Plan Of Treatment Future Test Test Name Order Date CBC With Differential/Platelet ([id number]) 04/02/2020 Hepatic Function Panel (7) ([id number]) 1 06/03/2019 Insurance Providers Payer Name Payer Address Payer Phone Subscriber Number Group Number Insured Name Patient Relationship to Insured Coverage Start Date Coverage End Date [employer] PPO MEDICARE PLAN [address] [place], [place] [id number] Charles Stewart Self - patient is the insured Medical (General) History Medical History History ICD Code ----CARDIOLOGY---- HTN48 hr HOLTER 11/09/18 rhythm is sinus rhythm. [...] noted. No complex ventricular arrhythmia. No diary submitted-----LABS----LIPID 08/01/18 LDL 97 TRI 90CMP 08/01/18 CR 0.90Irregular heart zxkbnvJ72.9Essential oypwfxxrjqvuI00Ylioozlho atrial aqutgdifmenD09.1 NanpsgwZ93GBH (premature atrial contraction)I49.1Surgical History Surgery Date(Month/Year) BASAL CARCINOMA REMOVED LEFT SIDE OF HEA D 2017 hernia repair TonsillectomyCholecystectomyHospitalization History Reason Date(Month/Year) HERNIA SURGERY
--- OUTSIDE RECORDS SUMMARY | 2025-03-24 07:06 | XMS_ITS | Encounter Summary ---
Author Organization [facility] Address [address] [place] [address] Care Team Providers Care Dry Pan Operator Name Role Phone Rusty Delgado MD Unavailable [phone] Rusty Delgado MD Primary Care Provider Encounter Details DateTypeDepartmentCare Team (Latest Contact Info)Nwfjxceztzz97/24/2025bstract [facility] [address] [place] [address] Rusty Delgado MD [address] [facility] [address] [place] [address] Social History Tobacco UseTypesPacks/DayYears UsedDateSmoking Tobacco: FormerCigarettesQuit: 1990Smokeless Tobacco: NeverAlcohol UseStandard Drinks/WeekCommentsYes0 (1 standard drink = 0.6 oz pure alcohol)2-3 times per week, 1-2 drinks at a time B1300 Health LiteracyAnswerDate RecordedHow often do you need to have someone help you when you read instructions, pamphlets, or other written material from your doctor or pharmacy?Znqssj8012/12/2023Social Connection and Isolation Panel AnswerDate RecordedIn a typical week, how many times do you talk on the phone with family, friends, or neighbors?Never12/12/2023How often do you get together with friends or relatives?Never12/12/2023How often do you attend quaker or restoration services?Never12/12/2023o you belong to any clubs or organizations such as quaker groups, unions, fraternal or athletic groups, or school groups?No 12/12/2023How often do you attend meetings of the clubs or organizations you belong to?Never12/12/2023re you , , , , never , or living with a partner?Mxotfwy9712/12/2023UDIT-CAnswerDate RecordedQ1: How often do you have a [...] hard at all12/12/2023HQ-2AnswerDate Recorded Patient Health Questionnaire-2 Ghkhf635[facility] [place] of Occupational Health - Occupational Stress QuestionnaireAnswerDate RecordedDo you feel stress - tense, restless, nervous, or anxious, or unable to sleep at night because your mind is troubled all the time - these days?To some scscrh6112/12/2023Exercise Vital SignAnswerDate RecordedOn average, how many days [...] were you homeless or living in a jail (including now)?No12/12/2023Sex and Gender InformationValueDate RecordedSex Assigned at EukmhNokf64/27/2024 1:36 PM EDTLegal QijJwqb3706/29/2022 11:50 PM EDTGender CazklzfvIopi79/27/2024 1:36 PM EDTSexual UfubymcmjokEufrnbm81/27/2024 1:36 PM EDTdocumented as of this encounter Plan of Treatment Not on file documented as of this encounter Visit Diagnoses Not on filedocumented in this encounter Care Teams Team MemberRelationshipSpecialtyStart DateEnd Date Rusty Delgado MD [address] [facility] [address] [place] [address] PCP - [employer]04/17/22 Rusty Delgado MD [address] [facility] [address] [place] [address] PCP - GeneralInternal Medicine11/23/22documented as of this encounter
--- OUTSIDE RECORDS SUMMARY | 2025-03-24 07:07 | XMS_ITS | Encounter Summary ---
Author Organization [facility] Address [address] [place] [address] Care Team Providers Care Engineering Project Manager Name Role Phone Rusty Delgado MD Unavailable [phone] Rusty Delgado MD Primary Care Provider [phone] Encounter Details DateTypeDepartmentCare Team (Latest Contact Info)Umbmjlbjugj52/02/2025bstract [facility] [address] [place] [id number] Rusty Delgado MD [address] [facility] [address] [place] [address] Social History Tobacco UseTypesPacks/DayYears UsedDateSmoking Tobacco: FormerCigarettesQuit: 1990Smokeless Tobacco: NeverAlcohol UseStandard Drinks/WeekCommentsYes0 (1 standard drink = 0.6 oz pure alcohol)2-3 times per week, 1-2 drinks at a time B1300 Health LiteracyAnswerDate RecordedHow often do you need to have someone help you when you read instructions, pamphlets, or other written material from your doctor or pharmacy?Npgxgi2512/12/2023Social Connection and Isolation Panel AnswerDate RecordedIn a typical week, how many times do you talk on the phone with family, friends, or neighbors?Never12/12/2023How often do you get together with friends or relatives?Never12/12/2023How often do you attend pentecostalism or advent services?Never12/12/2023o you belong to any clubs or organizations such as pentecostalism groups, unions, fraternal or athletic groups, or school groups?No 12/12/2023How often do you attend meetings of the clubs or organizations you belong to?Never12/12/2023re you , , , , never , or living with a partner?Qqxzkbt7612/12/2023UDIT-CAnswerDate RecordedQ1: How often do you have a [...] hard at all12/12/2023HQ-2AnswerDate Recorded Patient Health Questionnaire-2 Krbyr795[facility] [place] of Occupational Health - Occupational Stress QuestionnaireAnswerDate RecordedDo you feel stress - tense, restless, nervous, or anxious, or unable to sleep at night because your mind is troubled all the time - these days?To some jaimsk1612/12/2023Exercise Vital SignAnswerDate RecordedOn average, how many days [...] were you homeless or living in a correction (including now)?No12/12/2023Sex and Gender InformationValueDate RecordedSex Assigned at UzhgoMvut55/27/2024 1:36 PM EDTLegal IvuDdch6706/29/2022 11:50 PM EDTGender XkxsdquvSjgj06/27/2024 1:36 PM EDTSexual GkhhqzwthxbWozbcdn90/27/2024 1:36 PM EDTdocumented as of this encounter Plan of Treatment Not on file documented as of this encounter Visit Diagnoses Not on filedocumented in this encounter Care Teams Team MemberRelationshipSpecialtyStart DateEnd Date Rusty Delgado MD [address] [facility] [address] [place] [address] PCP - [employer]04/17/22 Rusty Delgado MD [address] [facility] [address] [place] [address] PCP - GeneralInternal Medicine11/23/22documented as of this encounter
--- OUTSIDE RECORDS SUMMARY | 2025-03-24 07:07 | XMS_ITS | Encounter Summary ---
Author Organization [facility] Address [address] [place] [address] Care Team Providers Care High Man Name Role Phone Rusty Delgado MD Unavailable [phone] Rusty Delgado MD Primary Care Provider [phone] Encounter Details DateTypeDepartmentCare Team (Latest Contact Info)Glzjmzptuur27/04/2025bstract [facility] [address] [place] [phone] Rusty Delgado MD [address] [facility] [address] [place] [address] Social History Tobacco UseTypesPacks/DayYears UsedDateSmoking Tobacco: FormerCigarettesQuit: 1990Smokeless Tobacco: NeverAlcohol UseStandard Drinks/WeekCommentsYes0 (1 standard drink = 0.6 oz pure alcohol)2-3 times per week, 1-2 drinks at a time B1300 Health LiteracyAnswerDate RecordedHow often do you need to have someone help you when you read instructions, pamphlets, or other written material from your doctor or pharmacy?Gqmitn8312/12/2023Social Connection and Isolation Panel AnswerDate RecordedIn a typical week, how many times do you talk on the phone with family, friends, or neighbors?Never12/12/2023How often do you get together with friends or relatives?Never12/12/2023How often do you attend episcopalian or mu-ism services?Never12/12/2023o you belong to any clubs or organizations such as episcopalian groups, unions, fraternal or athletic groups, or school groups?No 12/12/2023How often do you attend meetings of the clubs or organizations you belong to?Never12/12/2023re you , , , , never , or living with a partner?Iqfpakd9012/12/2023UDIT-CAnswerDate RecordedQ1: How often do you have a [...] hard at all12/12/2023HQ-2AnswerDate Recorded Patient Health Questionnaire-2 Petcm475[facility]ational [facility] - Occupational Stress QuestionnaireAnswerDate RecordedDo you feel stress - tense, restless, nervous, or anxious, or unable to sleep at night because your mind is troubled all the time - these days?To some xgoulu9612/12/2023Exercise Vital SignAnswerDate RecordedOn average, how many days [...] were you homeless or living in a assisted (including now)?No12/12/2023Sex and Gender InformationValueDate RecordedSex Assigned at KrsyrBsjv05/27/2024 1:36 PM EDTLegal CfjCpkl9306/29/2022 11:50 PM EDTGender XagljqwfXzpt26/27/2024 1:36 PM EDTSexual MmtkuifblmpPdhivbo36/27/2024 1:36 PM EDTdocumented as of this encounter Plan of Treatment Not on file documented as of this encounter Visit Diagnoses Not on filedocumented in this encounter Care Teams Team MemberRelationshipSpecialtyStart DateEnd Date Rusty Delgado MD [address] [facility] [address] [place] [address] PCP - [employer]04/17/22 Rusty Delgado MD [address] [facility] [address] [place] [address] PCP - GeneralInternal Medicine11/23/22documented as of this encounter
--- OUTSIDE RECORDS SUMMARY | 2025-03-24 07:07 | XMS_ITS | Clinical Summary ---
Author Organization [facility] Address [address] [place] [address] Care Team Providers Care Log Processor Operator Name Role Phone Rusty Delgado MD Primary Care Provider [phone] Allergies No known active allergies Medications MedicationSigDispense [...] DateDiagnosed DateHistory of tobacco abuse03/08/2024Nonalcoholic steatohepatitis (JARAMILLO)03/08/2024Hepatic qiaecutqv61/22/2024leural effusion 02/19/2024ge-related nuclear cataract of both eyes01/18/2024ortic root glhssskvzu17/05/2024 Overview (12/27/2023): Last Assessment & Plan: 3.8 cm ECHO 12/20/2023 Secondary esophageal varices without tmjtybsq76/28/2024Other vgekuam9312/13/2023 QUESADA (dyspnea on exertion)12/13/2023lcoholic cirrhosis of liver with ascites 10/13/20238874Fnussujmp11yspepsia and disorder of function of ihhfrla29Esophageal yawfdsprcuz70Emesis bnormal weight lossEpisodic altered thabekewy90Grade II iicioxgtmjg64Fissure in anoHx of colonic atttxl80Myalgia03/16/2023 08/03/2023ontrolled type 2 diabetes mellitus without complication, without long-term current use of cgjnwgq17rystalline deposits in rlvjogwe34yslipidemiaEpiretinal membrane Fatty liverInsomnia Metabolic syndrome X3566Kbvqafaxcvdselxn05/03/202304/18/2024 Olecranon duqygovc11/23/7767Xyqfyqo69/23/2019Hyperglycemia due to type 2 diabetes fpqamegi82/24/2019Class 1 sxcylrk1407/26/2018Primary gout07/26/2018 Ventricular premature beats06/28/2017Basal cell carcinoma of skin06/27/2017 Essential lfouuybtdbzo00/13/2018Gastroesophageal reflux ebmxyru5106/27/2017 Incisional xmvwyv18arrett's btugxpbda82GERD (gastroesophageal reflux disease)HTN (hypertension) Osteoporosis Resolved Problems ProblemNoted DateDiagnosed DateResolved DateBenign essential hypertension /Nuclear senile owcntbwj9303/08/2024 Immunizations ImmunizationAdministration DatesNext DueInfluenza, High Dose Seasonal, Preservative Free02/01/2022,02/17/2021Influenza, Seasonal, Quadrivalent, Ufymwjgcef04/10/2023Influenza, Iatcxqjokaa68/09/2013Influenza, injectable, jftdctqsopkd49/30/2017,01/17/2017Influenza, injectable, quadrivalent, preservative free02/10/2019Influenza, seasonal, qqqjtpsmoy41/17/2016,02/10/2015, 01/14/2014Tdap12/09/2021Zoster, Mpejbldiquw33/14/2023Zoster, live03/24/2015 Social History Tobacco UseTypesPacks/DayYears UsedDateSmoking Tobacco: [...] heating?Not hard at all02/19/2024HQ-2AnswerDate RecordedPatient Health Questionnaire-2 Wrbck84305/08/2023UT Safety & Environment AnswerDate RecordedWithin the last [...] file02/19/2024Sex and Gender InformationValueDate RecordedSex Assigned at NogcgNkko13/22/2024 10:44 AM EDTLegal YxbVful1407/13/2023 8:09 AM EDTGender JfcxqprjMvgl71/22/2024 10:44 AM EDTSexual Orientation Heterosexual or Dcnfxmis74/22/2024 10:44 AM EDT Last Filed Vital Signs Vital SignReadingTime TakenCommentsBlood Pausgznx682/9103/08/2024 2:04 PM EST Bsztx003003/08/2024 2:04 PM QVNCxteeicyere00.6 ??C (97.9 ??F)02/20/2024 2:51 PM ESTRespiratory Qvub984404/21/2023 2:51 PM ESTOxygen Fgovmmhyzw11%02/20/2024 2:51 PM ESTInhaled Oxygen Concentration--Rsecpj28.4 kg (186 lb)03/08/2024 2:04 PM EST Bdtsrj048.3 cm (5' 9 )03/08/2024 2:04 PM ESTBody Mass Index27.4703/08/2024 2:04 PM EST Plan of Treatment Health MaintenanceDue DateLast DoneCommentsCT Enithwhildar80/18/1954FIT-DNA 1953FIT1953FOBT1953Medicare Annual Wellness (AWV)1953 Diabetes: Retinopathy Oxlutyntj52/18/1964Depression Lcpvdncuy63/18/1966Fall Risk Mmmgoaklb35/18/2019COVID-19 Vaccine (3 - Moderna risk series)07/22/2020 06/24/2020, 05/27/2020Zoster Vaccines (2 of 2)/, 03/24/2015 Diabetes: Hemoglobin A1C/12/2023, 3Diabetes: Urine Protein Zloopglqm57/09/194576/12/2023Influenza Vaccine (#1)511/, 01/24/2023, 02/01/2022, Additional history heooejMxikwpfrverhk35/19/2030 5Adult Dtozfxe54/1620Jmweboffbem47/17/203505/, 08/08/2019Colorectal Cancer Mdyvodhlp65/17/2035Pneumococcal Vaccine: 50+ Years Ajgeqbbgq28/18/2024HIB VaccinesAged OutNo longer eligible based on patient's [...] (Latest Code Status on File) Date ActivatedDate QjancbaaiytYfaauuos92/4/2024 4:34 PM02/20/2024 6:27 PM Care Teams Team MemberRelationshipSpecialtyStart DateEnd Date Rusty Delgado MD [address] [place] [address] PCP - GeneralInternal Medicine08/01/23
--- OUTSIDE RECORDS SUMMARY | 2025-03-24 07:07 | XMS_ITS | Patient Health Record ---
Author Organization [facility] Address Main Office [address] [place] [address] Care Team Providers Care Sewer Connector Name Role Phone ANTHONY MORAN Primary Care Provider [phone] Reason For Referral No Information Medications Medication [...] route once daily before a meal 12/24/2018 ActiveZolpidem Tartrate 10 MGOraltake 0.5 tablet by Oral route at bedtime 1 per night PRN as needed for sleepActiveIbuprofen 800 MGOralTake 1 tablet by Oral route 3 times per day PRNActiveLisinopril 20 MG1 tablet Orally Once a day; Duration: 30 day(s)take 1 tablet (20 mg) by oral route once daily12/24/2018Active Immunizations Vaccine Route Administration Date Status Comme nts influenza, injectable, quadrivalent, preservative free IM Intramuscular 02/10/2019 Administered Moderna SARS Covid-19 VaccineIM Tbrqrkrpvqpqp87/10/2021dministeredModerna SARS Covid-19 VaccineIM Gmqoclidwphpi54/10/2021Administered Problems Problem Type SNOMED Code ICD Code Onset Dates Problem Status W/U Status Risk Notes Problem Essential hypertensi on (52666367) Essential (primary) hypertension (I10) 07/26/2018 Active confirmed ProblemPrimary gout (14405219)Idiopathic gout, unspecified ankle and foot (M10.079)07/26/2018ActiveconfirmedProblemInflammation of bursa of olecranon (536080699)Olecranon bursitis, right elbow (M70.21)11/06/2018Activeconfirmed ProblemHyperglycemia due to type 2 diabetes mellitus (265587696327829)DIABETES MELLITUS WITH HYPERGLYCEMIA, TYPE 2 (E11.65)08/08/2018ActiveconfirmedProblem Essential hypertension (79950756)ESSENTIAL HYPERTENSION (I10)11/06/2018Active confirmedProblemBody mass index 30.00 to 34.99 (986428965726619)BMI 32.0-32.9, ADULT (Z68.32)07/26/2018ActiveconfirmedProblemVertigo (561840013)VERTIGO (R42) 11/06/2018Activeconfirmed Plan Of Treatment No Information Insurance Providers Payer Name Payer Address Payer Phone Subscriber Number Group Number Insured Name Patient Relationship to Insured Coverage Start Date Coverage End Date MEDICARE [place] [address] [place] [address] [id number], WILLIAMSelf - patient is the [id number] MEDICARE [place] [address] [place], [place] [id number] Gus BLANDON - patient is the insured
--- OUTSIDE RECORDS SUMMARY | 2025-03-24 07:07 | XMS_ITS | Encounter Summary ---
Author Organization [facility] Address [address] [place] [address] Care Team Providers Care Controlled Atmospheric Furnace Brazer Name Role Phone Rusty Delgado MD Unavailable [phone] Rusty Delgado MD Primary Care Provider [phone] Encounter Details DateTypeDepartmentCare Team (Latest Contact Info)Ppvjgghsnlk48/02/2025bstract [facility] [address] [place] [id number] Rusty Delgado MD [address] [facility] [address] [place] [address] Social History Tobacco UseTypesPacks/DayYears UsedDateSmoking Tobacco: FormerCigarettesQuit: 1990Smokeless Tobacco: NeverAlcohol UseStandard Drinks/WeekCommentsYes0 (1 standard drink = 0.6 oz pure alcohol)2-3 times per week, 1-2 drinks at a time B1300 Health LiteracyAnswerDate RecordedHow often do you need to have someone help you when you read instructions, pamphlets, or other written material from your doctor or pharmacy?Gxsjzj9412/12/2023Social Connection and Isolation Panel AnswerDate RecordedIn a typical week, how many times do you talk on the phone with family, friends, or neighbors?Never12/12/2023How often do you get together with friends or relatives?Never12/12/2023How often do you attend episcopalian or buddhist services?Never12/12/2023o you belong to any clubs or organizations such as episcopalian groups, unions, fraternal or athletic groups, or school groups?No 12/12/2023How often do you attend meetings of the clubs or organizations you belong to?Never12/12/2023re you , , , , never , or living with a partner?Fuypkvl4012/12/2023UDIT-CAnswerDate RecordedQ1: How often do you have a [...] hard at all12/12/2023HQ-2AnswerDate Recorded Patient Health Questionnaire-2 Rbcib477[facility] - Occupational Stress QuestionnaireAnswerDate RecordedDo you feel stress - tense, restless, nervous, or anxious, or unable to sleep at night because your mind is troubled all the time - these days?To some njfjcn7712/12/2023Exercise Vital SignAnswerDate RecordedOn average, how many days [...] homeless or living in a mcc (including now)?No12/12/2023Sex and Gender InformationValueDate RecordedSex Assigned at LntblZwdr23/27/2024 1:36 PM EDTLegal RslUeou8206/29/2022 11:50 PM EDTGender UnveecpsHklm20/27/2024 1:36 PM EDTSexual GgdezdufkslZiabgad28/27/2024 1:36 PM EDTdocumented as of this encounter Plan of Treatment Not on file documented as of this encounter Visit Diagnoses Not on filedocumented in this encounter Care Teams Team MemberRelationshipSpecialtyStart DateEnd Date Rusty Delgado MD [address] [facility] [address] [place] [address] PCP - [employer]04/17/22 Rusty Delgado MD [address] [facility] [address] [place] [address] PCP - GeneralInternal Medicine11/23/22documented as of this encounter
--- OUTSIDE RECORDS SUMMARY | 2025-03-24 07:07 | XMS_ITS | Clinical Summary ---
Author Organization [facility] Address [address] [place] [address] Phone Care Team Providers Care General Surgery Physician Assistant Name Role Phone Danny Rusty Gomez Primary Care Provider [phone] Allergies Active AllergyReactionsCriticalityNoted DateCommentsDexmedetomidine Hcl In Nacl [...] Thrombosis.Expired Active Problems ProblemNoted DateDiagnosed DateCritical illness fzpuhrvu51/15/2025 Encounters DateTypeDepartmentCare AvvoAjjyrfomnzr66/20/2025Plan of Care Documentation [address] [address] 01/27/2025Plan of Care Documentation [address] [address] 01/20/2025Plan of Care Documentation [address] [address] 01/17/2025Plan of Care Documentation [address] [address] 01/14/2025 6:40 PM EDT - 02/04/2025 3:01 PM EDTHospital Encounter [address] [address] Jonathan Cruz DO Aguilera, Richard G, MD Critical illness myopathy (Primary Dx) [facility]charge Disposition: [facility]from Last 3 Months Immunizations ImmunizationAdministration DatesNext DueHep B, Fvdicesfbeq83/14/2025,06/15/2024, 05/02/2024Influenza Whole02/02/2025(Deferred: Offered and declined - refuse) Influenza, Fgypwiiymfq45/10/2023Moderna SARS-CoV-2 Hpsnfjtpugd78/10/2021, 05/27/2020neumococcal Coelxvrpr14/18/2024SV, Cnjthuqrktf18/24/2025Zoster 04/30/2022 Social History Tobacco UseTypesPacks/DayYears UsedDateSmoking Tobacco: [...] relatives?Once a week01/15/2025How often do you attend latter-day or presybeterian services?Never01/15/2025Do you belong to any clubs or organizations such as latter-day groups, unions, fraternal or athletic groups, or school groups?No01/15/2025How often do you attend meetings of the clubs or organizations you belong to?Never01/15/2025re you , , , , never , or living with a partner?Mukwsmw5601/15/2025UDIT-C AnswerDate RecordedQ1: How often do you have [...] medical care, and heating?Not hard at all01/15/2025 [place] [employer] - Occupational Stress Questionnaire [...] or living in a group home (including now)?No01/15/2025Domestic Abuse AssessmentAnswerDate RecordedDo you feel safe in your relationships at home?Yes01/14/2025Physical AbuseDenies 01/14/2025HRSN Domestic Abuse - Type of AbuseNot on file01/14/2025HRSN Domestic Abuse - Time FrameNot on file01/14/2025HRSN Domestic Abuse - Signs and Symptoms Not on file01/14/2025Verbal WegdsMprats65/30/2025HRSN Domestic Abuse - Reported ToNot on file01/14/2025SM SDOH Transportation SourceAnswerDate RecordedHas lack of transportation kept you from medical appointments or from getting medications?No02/04/2025Has lack of transportation kept you from meetings, work, or from getting things needed for daily living?No02/04/2025HRSN Depression PHQ-2 AnswerDate RecordedFeeling down, depressed, or xnpsteaa1899/21/2025Little interest or pleasure in doing imwxgx1822Sex and Gender InformationValue Date RecordedSex Assigned at BirthNot on fileLegal HzfYcfd8709/27/2024 2:00 PM EDT Gender IdentityNot on fileSexual OrientationNot on file Last Filed Vital Signs Vital SignReadingTime TakenCommentsBlood Vkddsudi690/7902/04/2025 7:00 AM EDT Jckeg571402/04/2025 7:00 AM IDRNrdnxptgejk48.4 ??C (97.6 ??F)02/04/2025 7:00 AM EDTRespiratory Mkvw2414 7:00 AM EDTOxygen Iekuckxcno79%02/04/2025 7:00 AM EDTInhaled Oxygen Concentration--Tytxng70.6 kg (138 lb)02/04/2025 4:00 AM EDT Rhbjdb254.3 cm (5' 9 )01/15/2025 4:24 PM EDTBody Mass Index20.3810 4:24 PM EDT Plan of Treatment Health MaintenanceDue DateLast DoneCommentsCT Iojdozchjjsd74/18/1954FIT-DNA (Cologuard)1953FIT1953FOBT08/02/19534017Ignndborwwrkp20/18/1954nnual Visit Topic1954Hepatitis C Qbscupdbn47/18/1972Pneumococcal Vaccine: 65+ Years (1 of 2 - PCV)bdominal Aortic Aneurysm (AAA) Ngzijbdrk57/18/2019DTaP/Tdap/Td Vaccines (2 - Td or Tdap) Pmgfunwxpob26olorectal Cancer Gmsswlfoz85/17/2035Hepatitis A VaccinesAged Out08/28/2024, 05/02/2024No longer eligible based on patient's age to complete this topicHepatitis B FbybdhayItmjebxeu46/14/2025, 06/15/2024, 05/02/2024HIB VaccinesAged OutNo longer eligible based on patient's age to complete this topicHPV VaccinesAged OutNo longer eligible based on patient's age to complete this topicIPV VaccinesAged OutNo longer eligible based on patient's age to complete this topicMeningococcal VaccineAged OutNo longer eligible based on patient's age to complete this topic Procedures Procedure NamePriorityDate/TimeAssociated DiagnosisCommentsMAGNESIUMRoutine 02/03/2025 4:48 AM EDT GAMMA PFThvvtkf45/20/2025 4:48 AM EDT C-REACTIVE KFMVDQPAyteodi98/20/2025 4:48 AM EDT COMPREHENSIVE METABOLIC UZOKILemqgcs38/20/2025 4:48 AM EDT CMV DNA, QUANTITATIVE, EPZFvtjfkq01/20/2025 4:48 AM EDT CBC WITH AUTO HKOMNEZWPYGCJxctpyc62/20/2025 4:48 AM EDT N-TERMINAL HXOSYUKltrgbs69/20/2025 4:48 AM EDT TACROLIMUS SRXLJBmetidr45/20/2025 4:48 AM EDT SPQCLDJWGXOjapczb01/20/2025 4:48 AM EDT XR CHEST 1 ACBYWW4401/31/2025 12:03 PM EDT TRFWAKOVMGkschwa97/16/2025 4:18 AM EDT GAMMA WMNjcahwg31/16/2025 4:18 AM EDT C-REACTIVE GPLZODHPkucido80/16/2025 4:18 AM EDT COMPREHENSIVE METABOLIC ITFJKKvrlfga77/16/2025 4:18 AM EDT CBC WITH AUTO RGZDFIQERJZLRdirbuq63/16/2025 4:18 AM EDT N-TERMINAL WTKLHZDrtdvuf90/16/2025 4:18 AM EDT TACROLIMUS HAYUXIzaloyr92/16/2025 4:18 AM EDT RYWQQFPBIETjzbhar22/16/2025 4:18 AM EDT GRHBBBRVZZqvtqul40/13/2025 5:54 AM EDT GAMMA DNHjuclrn40/13/2025 5:54 AM EDT C-REACTIVE CJCUPBBLsvvrvc86/13/2025 5:54 AM EDT COMPREHENSIVE METABOLIC UTVYFAzsrooo95/13/2025 5:54 AM EDT CMV DNA, QUANTITATIVE, JHWTtykskf47/13/2025 5:54 AM EDT CBC WITH AUTO WFMDBBEQEHUWMebeunr20/13/2025 5:54 AM EDT N-TERMINAL EMRLIYXwvubfs13/13/2025 5:54 AM EDT TACROLIMUS KCIMRTluugqe03/13/2025 5:54 AM EDT QJWBLHPFMOTjfuzsq33/13/2025 5:54 AM EDT C-REACTIVE WQPFVJIBkuqcib11/12/2025 5:30 AM EDT CBC WITH AUTO ECQWSVYHFNQKZzkfjma20/12/2025 5:30 AM EDT JGXUGMKcukykx87/12/2025 5:30 AM EDT QTQZSZUGdlftnw94/12/2025 5:30 AM EDT RXSUmxddlv98/11/2025 5:50 AM EDT URINALYSIS WITH MICROSCOPIC WITH REFLEX TO CULTURE, YPZMJUTJtcovvb74/10/2025 3:[address] LUMBAR SPINE WO VYCVENUHBWOI73/10/2025 2:[address] THORACIC SPINE WO BESRZDKWVUIE01/10/2025 2:16 PM EDT XR CHEST 1 WJSKBR0701/24/2025 12:58 PM EDT TYPE AND APCIIPUnnuycz97/10/2025 5:28 AM EDT GMTNpjkaxy76/10/2025 5:28 AM EDT RPPADBPTOUigyore37/09/2025 9:48 AM EDT GAMMA UJVeitkfw38/09/2025 9:48 AM EDT C-REACTIVE MBJOTVGSvwpcfi93/09/2025 9:48 AM EDT COMPREHENSIVE METABOLIC UGBBIZfexppx44/09/2025 9:48 AM EDT CBC WITH AUTO REVMDNXAIEVJLedbqjx53/09/2025 9:48 AM EDT N-TERMINAL ZQDHCUGtjsuzw40/09/2025 9:48 AM EDT TACROLIMUS MGTSKYcselng67/09/2025 9:48 AM EDT WSIQIQISTUSwzzhuw68/09/2025 9:48 AM EDT BMYSHSROLDffkeow97/06/2025 4:30 AM EDT GAMMA VPLnoipsh88/06/2025 4:30 AM EDT C-REACTIVE JEDVYWZNngmxsb97/06/2025 4:30 AM EDT COMPREHENSIVE METABOLIC DWROGZfwlkcb33/06/2025 4:30 AM EDT CMV DNA, QUANTITATIVE, GBEUfzwuoz67/06/2025 4:30 AM EDT CBC WITH AUTO LUACCGHGKVTGOhqyrfm19/06/2025 4:30 AM EDT N-TERMINAL CTTYOMSmweflz32/06/2025 4:30 AM EDT TACROLIMUS VXUPSUtvwiye58/06/2025 4:30 AM EDT LIJUBGJHGOUlfyboc46/06/2025 4:30 AM EDT C-REACTIVE YFQGSCZPvpuanu93/05/2025 11:11 AM EDT SEDIMENTATION RATE, QBBMIBCRVObkhllg90/05/2025 11:11 AM EDT CBC WITH AUTO HHRPNUDJKTSVQvgzufl52/05/2025 11:11 AM EDT POCT JGGXTKTMgfwvqt53/04/2025 8:29 PM EDT POCT CIWJDFFRjkuzlj37/04/2025 7:46 AM EDT XR ABDOMEN KUB W OBL OR TPGKBCQR27/03/2025 2:03 PM EDT XR ABDOMEN KUB W OBL OR VKKUBBFP2025 9:26 PM EDT XR ABDOMEN KUB W OBL OR FGKFQVOX04/02/2025 5:27 PM EDT XR ABDOMEN KUB W OBL OR JNNGKCQX46/02/2025 1:21 PM EDT EBASEACIMCtachdz80/02/2025 4:47 AM EDT GAMMA RNAmcphfa82/02/2025 4:47 AM EDT C-REACTIVE JDNTRYFCpnrkvu81/02/2025 4:47 AM EDT COMPREHENSIVE METABOLIC MEYPQDucugus28/02/2025 4:47 AM EDT CBC WITH AUTO XYNSSMKBTVKYTyuschy39/02/2025 4:47 AM EDT N-TERMINAL WJSFOKDyltdyr66/02/2025 4:47 AM EDT TACROLIMUS PWWPNTosazwf25/02/2025 4:47 AM EDT CNMIKMRJJNUjbmbcs00/02/2025 4:47 AM EDT XR CHEST 1 KXSPFM5101/15/2025 7:45 PM EDT TACROLIMUS JMBSAXdvahjx78/01/2025 5:30 AM EDT C-REACTIVE FIUCGANJvygcij23/01/2025 5:30 AM EDT GAMMA UISyajnmt19/01/2025 5:30 AM EDT UGYDZJIAMXbivrlc29/01/2025 5:30 AM EDT COMPREHENSIVE METABOLIC YPBLXHzfonuv18/01/2025 5:30 AM EDT CBC WITH AUTO IXOIOWBRIXCFWgupmif40/01/2025 5:30 AM EDT from Last 3 Months Results * (ABNORMAL) N-Terminal ProBNP (02/03/2025 4:48 AM EDT) Only the most recent of6 resultswithin the time period is included. ComponentValueRef RangeTest MethodAnalysis TimePerformed AtPathologist Signature NT PRO MKR930(H)<125 pg/mL02/03/2025 9:01 AM EDTFAIRVIEW LABORATORYSpecimen (Source)Anatomical Location / LateralityCollection Method / VolumeCollection TimeReceived TimeBlood (Blood, Venous)02/03/2025 4:48 AM EDT1 8:07 AM EDT Narrative Authorizing ProviderResult TypeResult StatusSadenise Cruz [facility] BLOOD ORDERABLESFinal ResultPerforming OrganizationAddressCity/State/ZIP CodePhone Number [facility] [address] [place] [address] [facility] [address] [place] [address] * (ABNORMAL) CBC AUTO DIFFERENTIAL (02/03/2025 4:48 AM EDT) Only the most recent of9 resultswithin the time period is included. ComponentValueRef RangeTest MethodAnalysis TimePerformed AtPathologist Signature WBC14.53(H)3.70 - 11.00 k/uL02/03/2025 8:45 AM EDTFAIRVIEW LABORATORYRBC2.41(L) 4.20 - 6.00 m/uL02/03/2025 8:45 AM EDTFAIRVIEW LABORATORYHemoglobin7.9(L)13.0 - 17.0 g/dL02/03/2025 8:45 AM [facility] UGUREOJEIXOpvrgqfawx20.2(L)39.0 - 51.0 % 02/03/2025 8:45 AM [facility] KWHCXEKWVXXTI951.6(H)80.0 - 100.0 fL02/03/2025 8:45 AM [facility] OECBIUHTVDVYE96.826.0 - 34.0 pg02/03/2025 8:45 AM [facility] RMOISWEGJAJVIW44.330.5 - 36.0 g/dL02/03/2025 8:45 AM [facility] LABORATORYRDW-CV20.1(H)11.5 - 15.0 %02/03/2025 8:45 AM [facility] Qfxfuboug660(L)150 - 400 k/uL02/03/2025 8:45 AM [facility] FIYEUXKVHJEPF22.49.0 - 12.7 fL02/03/2025 8:45 AM [facility] LABORATORYNeutrophils Pbqukclmn29.3% 02/03/2025 8:45 AM [facility] LABORATORYNeutrophils Tektrdut06.82(H)1.45 - 7.50 k/uL02/03/2025 8:45 AM [facility] LABORATORYLymphocytes % by manual count7.0% 02/03/2025 8:45 AM [facility] LABORATORYLymphocytes Absolute1.011.00 - 4.00 k/uL02/03/2025 8:45 AM [facility] LABORATORYMonocytes % by manual count=5.0% 02/03/2025 8:45 AM [facility] LABORATORYMonocytes Absolute0.73<0.87 k/uL 02/03/2025 8:45 AM [facility] LABORATORYEosinophils Manual3.7%02/03/2025 8:45 AM [facility] LABORATORYEosinophils Absolute0.54(H)<0.46 k/uL02/03/2025 8:45 AM [facility] LABORATORYBasophils manual0.3%02/03/2025 8:45 AM EDK[facility] LABORATORYBasophils Absolute0.04<0.11 k/uL10/ 8:45 AM EDTFAIRVIEW LABORATORYImmature grans %2.7%02/03/2025 8:45 AM EDTFAIRVIEW LABORATORYGrans (Absolute)0.39(H)<0.10 k/uL02/03/2025 8:45 AM EDTFAIRVIEW LABORATORYNRBC % Auto 0.0/100 WBC02/03/2025 8:45 AM EDTFAIRVIEW LABORATORYAbsolute NRBC<0.01<0.01 k/uL 02/03/2025 8:45 AM EDTFAIRVIEW LABORATORYDifferential XsazCajq38/20/2025 8:45 AM EDTFAIRVIEW LABORATORYSpecimen (Source)Anatomical Location / Laterality Collection Method / VolumeCollection TimeReceived TimeBlood (Blood, Venous) 02/03/2025 4:48 AM EDT1 8:07 AM EDT Narrative Authorizing ProviderResult TypeResult Suzan Cruz [facility] BLOOD ORDERABLESFinal ResultPerforming OrganizationAddressCity/State/ZIP CodePhone Number [facility] [address] [place] [address] [facility] [address] [place] [address] * Tacrolimus level (02/03/2025 4:48 AM EDT) Only the most recent of7 resultswithin the time period is included. ComponentValueRef RangeTest MethodAnalysis TimePerformed AtPathologist Signature Tacrolimus Lvl6.35.0 - 20.0 ng/mL02/03/2025 6:05 PM EDTCBELLEVUE HOSPITAL [facility]IN LAB Comment: Individualized target levels for [...] situation. Test performed by chemiluminescent immunoassay using Priccutnity i. Specimen (Source)Anatomical Location / LateralityCollection Method / Volume Collection TimeReceived TimeBlood (Blood, Venous)02/03/2025 4:48 AM EDT 02/03/2025 1:56 PM EDT Narrative Authorizing ProviderResult TypeResult Suzan Cruz [facility] BLOOD ORDERABLESFinal ResultPerforming OrganizationAddressCity/State/ZIP CodePhone Number [facility] [address] [place] [address] [facility] [address] [place] [address] * CMV DNA, QUANTITATIVE, PCR (02/03/2025 4:48 AM EDT) Only the most recent of3 resultswithin the time period is included. ComponentValueRef RangeTest MethodAnalysis TimePerformed AtPathologist Signature Cytomegalovirus LOG (copies/mL)Not detectedNot Ybkkdhhq17/20/2025 9:[address] [facility] LABSpecimen (Source)Anatomical Location / Laterality Collection Method / VolumeCollection TimeReceived TimeBlood (Blood, Venous) 02/03/2025 4:48 AM EDT1 1:56 PM EDT Narrative Authorizing ProviderResult TypeResult Suzan NurSelect [facility] BLOOD ORDERABLESFinal ResultPerforming OrganizationAddressCity/State/ZIP CodePhone Number [facility] [address] [place] [address] [facility] [address] [place] [address] * (ABNORMAL) C-REACTIVE PROTEIN (02/03/2025 4:48 AM EDT) Only the most recent of9 resultswithin the time period is included. ComponentValueRef RangeTest MethodAnalysis TimePerformed AtPathologist Signature CRP11.0(H)<0.9 mg/dL02/03/2025 9:10 AM EDTFAIRVIEW LABORATORYSpecimen (Source) Anatomical Location / LateralityCollection Method / VolumeCollection Time Received TimeBlood (Blood, Venous)02/03/2025 4:48 AM EDT1 8:07 AM EDT Narrative Authorizing ProviderResult TypeResult Suzan Cruz [facility] BLOOD ORDERABLESFinal ResultPerforming OrganizationAddressCity/State/ZIP CodePhone Number [facility] [address] [place] [address] [facility] [address] [place] [address] * (ABNORMAL) PHOSPHORUS (02/03/2025 4:48 AM EDT) Only the most recent of6 resultswithin the time period is included. ComponentValueRef RangeTest MethodAnalysis TimePerformed AtPathologist Signature Phosphorus5.1(H)2.7 - 4.8 mg/dL02/03/2025 9:32 AM EDTFAIRVIEW LABORATORYSpecimen (Source)Anatomical Location / LateralityCollection Method / VolumeCollection TimeReceived TimeBlood (Blood, Venous)02/03/2025 4:48 AM EDT1 8:07 AM EDT Narrative Authorizing ProviderResult TypeResult StatusSaman S [facility]OL[facility] BLOOD ORDERABLESFinal ResultPerforming OrganizationAddressCity/State/ZIP CodePhone Number [facility] [address] [place] [address] [address] * MAGNESIUM (02/03/2025 4:48 AM EDT) Only the most recent of7 resultswithin the time period is included. ComponentValueRef RangeTest MethodAnalysis TimePerformed AtPathologist Signature Magnesium1.91.7 - 2.3 mg/dL02/03/2025 9:10 AM EDTFAIRVIEW LABORATORYSpecimen (Source)Anatomical Location / LateralityCollection Method / VolumeCollection TimeReceived TimeBlood (Blood, Venous)02/03/2025 4:48 AM EDT1 8:07 AM EDT Narrative Authorizing ProviderResult TypeResult StatusMilitary Health System DOLAB BLOOD ORDERABLESFinal ResultPerforming OrganizationAddressCity/State/ZIP CodePhone Number [facility] [address] [place] [address] [facility] [address] [place], [place] [id number] * (ABNORMAL) GAMMA GT (02/03/2025 4:48 AM EDT) Only the most recent of7 resultswithin the time period is included. ComponentValueRef RangeTest MethodAnalysis TimePerformed AtPathologist Signature GGT91(H)10 - 70 U/L1 4:21 PM EDTCBELLEVUE HOSPITAL MAIN LABSpecimen (Source)Anatomical Location / LateralityCollection Method / VolumeCollection TimeReceived TimeBlood (Blood, Venous)02/03/2025 4:48 AM EDT1 12:08 PM EDT Narrative Authorizing ProviderResult TypeResult StatusSadenise ALMARAZ BLOOD ORDERABLESFinal ResultPerforming OrganizationAddressCity/State/ZIP CodePhone Number [facility] [address] [place] [address] [facility] [address] [place] [address] * (ABNORMAL) COMPREHENSIVE METABOLIC PANEL (02/03/2025 4:48 AM EDT) Only the most recent of7 resultswithin the time period is included. ComponentValueRef RangeTest MethodAnalysis TimePerformed AtPathologist Signature Total Protein6.1(L)6.3 - 8.0 g/dL02/03/2025 9:10 AM EDTFSPAULDING RE[facility]IL[facility] LAB[facility] Albumin2.8(L)3.9 - 4.9 g/dL02/03/2025 9:10 AM EDKIN[facility] LABORATORYCalcium8.9 8.5 - 10.2 mg/dL02/03/2025 9:10 AM [facility] LABORATORYBilirubin, Total0.20.2 - 1.3 mg/dL02/03/2025 9:10 AM [facility] LABORATORYAlkaline texiiwtwrwm504(H)38 - 113 U/L1 9:10 AM [facility] CFYGPZDTKWNUJ1454 - 40 U/L1 9:10 AM [facility] LABORATORYALT (SGPT)2010 - 54 U/L1 9:10 AM EDT [facility] XOGILDMLGJAqhptks7162 - 99 mg/dL02/03/2025 9:10 AM [facility] LABORATORYComment: The [place] Diabetes Association (ADA) provides guidance for cutoff [...] Standards of Medical Care in Diabetes 2016, [place] [employer]. Diabetes Care. 2016.39(Suppl 1). BUN53(H)9 - 24 mg/dL02/03/2025 9:10 AM EDTFAIRVIEW LABORATORYCreatinine, Ser1.14 0.73 - 1.22 mg/dL02/03/2025 9:10 AM EDTFAIRVIEW LJXUITHBJDPvquds459(L)136 - 144 mmol/L1 9:10 AM EDTFAIRVIEW LABORATORYPotassium5.5(H)3.7 - 5.1 mmol/L 02/03/2025 9:10 AM EDTFAIRVIEW KBFRDYIRNYLveunrop22(L)98 - 107 mmol/L1 9:10 AM EDTFAIRVIEW TQYBEGLZPRXU08576 - 30 mmol/L1 9:10 AM EDTFAIRVIEW LABORATORYAnion Doa709 - 15 mmol/L1 9:10 AM EDTFAIRVIEW LABORATORY [...] DOLAB BLOOD ORDERABLESFinal ResultPerforming OrganizationAddressCity/State/ZIP CodePhone Number [facility] [address] [place] [address] [facility] [address] [place] [address] * XR CHEST 1 VWS (01/31/2025 12:03 PM EDT) Only the most recent of3 resultswithin the time period is included. Anatomical RegionLateralityModalityBodyComputed RadiographySpecimen (Source) Anatomical Location / LateralityCollection Method / VolumeCollection Time Received Time01/31/2025 12:03 PM EDT Impressions 01/31/2025 12:44 PM EDT IMPRESSION: Similar appearance of pleural effusions and bibasilar parenchymal opacities. Fourth Grade Teacher: SRINI ?? Transcribe Date/Time: Jan 31 2025 [...] of pleural effusions and bibasilar parenchymal opacities. Fourth Grade Teacher: SRINI Transcribe Date/Time: Jan 31 2025 12:38P Dictated by : DANIEL LACY MD This examination was interpreted and the report reviewed and electronically signed by: DANIEL LACY MD on Jan 31 2025 12:41PM EST Authorizing ProviderResult TypeResult Suzan Cruz [facility] DIAGNOSTIC IMAGING ORDERABLESFinal Result * (ABNORMAL) LIPASE (01/26/2025 5:30 AM EDT)ComponentValueRef RangeTest Method Analysis TimePerformed AtPathologist OmxdrmeavExvxqb05(L)16 - 61 U/L1 9:45 AM EDTFAIRVIEW LABORATORYSpecimen (Source)Anatomical Location / LateralityCollection Method / VolumeCollection TimeReceived TimeBlood (Blood, Venous)01/26/2025 5:30 AM EDT1 9:07 AM EDT Narrative Authorizing ProviderResult TypeResult Chris Dias [facility] BLOOD ORDERABLESFinal ResultPerforming OrganizationAddressCity/State/ZIP CodePhone Number [facility] [address] [place] [address] [address] * (ABNORMAL) AMYLASE (01/26/2025 5:30 AM EDT)ComponentValueRef RangeTest Method Analysis TimePerformed AtPathologist RxztdyefvDjlejsv19(L)30 - 104 U/L 01/26/2025 9:45 AM EDTFAIRVIEW LABORATORYSpecimen (Source)Anatomical Location / LateralityCollection Method / VolumeCollection TimeReceived TimeBlood (Blood, Venous)01/26/2025 5:30 AM EDT1 9:07 AM EDT Narrative Authorizing ProviderResult TypeResult StatusBetty Dias DOL BLOOD ORDERABLESFinal ResultPerforming OrganizationAddressCity/State/ZIP CodePhone Number [facility] [address] [place] [address] [facility] [address] [place] [address] * (ABNORMAL) CBC (01/25/2025 5:50 AM EDT) Only the most recent of2 resultswithin the time period is included. ComponentValueRef RangeTest MethodAnalysis TimePerformed AtPathologist Signature WBC17.25(H)3.70 - 11.00 k/uL01/25/2025 7:08 AM EDTFHU HU KAM [facility]PITALVIEW LABORATORYRBC2.26(L) 4.20 - 6.00 m/uL01/25/2025 7:08 AM EDAIRVIEW LABORATORYHemoglobin7.2(L)13.0 - 17.0 g/dL01/25/2025 7:08 AM EDTFHU [facility]OSPITALVIEW CUQJTCKLVXVzeutzovqm35.8(L)39.0 - 51.0 % 01/25/2025 7:08 AM EDKIN[facility] CAJTSDIGEEEMM892.9(H)80.0 - 100.0 fL01/25/2025 7:08 AM EDK[facility] IDKWVDNKCSBSF14.926.0 - 34.0 pg01/25/2025 7:08 AM EDT [facility] APZPQUTETDSEVC16.630.5 - 36.0 g/dL01/25/2025 7:08 AM EDTFAIRVIEW LABORATORYRDW-CV19.9(H)11.5 - 15.0 %01/25/2025 7:08 AM EDTFAIRVIEW LABORATORY Rnqxxpesj287217 - 400 k/uL01/25/2025 7:08 AM EDTFAIRVIEW UMAVXZNJSVRQV54.39.0 - 12.7 fL01/25/2025 7:08 AM EDTFAIRVIEW LABORATORYAbsolute NRBC<0.01<0.01 k/uL 01/25/2025 7:08 AM EDTFAIRVIEW LABORATORYSpecimen (Source)Anatomical Location / LateralityCollection Method / VolumeCollection TimeReceived TimeBlood (Blood, Venous)01/25/2025 5:50 AM EDT1 6:54 AM EDT Narrative Authorizing ProviderResult TypeResult StatusSadenise Cruz [facility] BLOOD ORDERABLESFinal ResultPerforming OrganizationAddressCity/State/ZIP CodePhone Number [facility] [address] [place] [address] [facility] [address] [place] [address] * (ABNORMAL) Urinalysis with Microscopic with Reflex to Culture, Routine (01/24/2025 3:10 PM EDT)ComponentValueRef RangeTest MethodAnalysis Time Performed AtPathologist SignatureColorLight IfsyiqItqmdk56/10/2025 4:52 PM EDT [facility] OYGKPOATYKDtuvfygIugqyRjtmy36/10/2025 4:52 PM EDTFAIRVIEW LABORATORY Glucose, UrNegativeTrace, Yjlonpyk55/10/2025 4:52 PM EDTFAIRVIEW LABORATORY Bilirubin YihzkZlkitwoyZbqothjg11/10/2025 4:52 PM [facility] Ketones, urineNegativeNegative, Trace01/24/2025 4:52 PM [facility] Specific [place], Urine1.0161.005 - 1.6994301/24/2025 4:52 PM EDTFAIRVIEW LAB[facility]ATORYBlood, UrineNegativeNegative, Trace01/24/2025 4:52 PM EDTFA[facility]ORYpH, Urine6.55.0 - 8.010 4:52 PM EDTFA[facility] Protein, UrNegativeTrace, Ozjjbjif88/10/2025 4:52 PM EDTFA[facility] Urobilinogen, AREahltaRvqorm47/10/2025 4:52 PM EDTFAIRVIEW LABORATORYNitrite, GIDnpcqqzpDlmbnkok61/10/2025 4:52 PM EDTFAIRVIEW LABORATORYLeukestNegative Negative, 25 Eder/uL01/24/2025 [...] DOLAB URINE ORDERABLESFinal ResultPerforming OrganizationAddressCity/State/ZIP CodePhone Number [facility] [address] [place] [address] [facility] [address] [place] [address] * CT LUMBAR SPINE WO CONTRAST (01/24/2025 [...] processes versus sequela of prior fractures, unchanged [employer] Grade Teacher: PSCB ?? Transcribe Date/Time: Jan 24 2025 [...] OF EXAM: Jan 24 2025 ??2:16PM ?? [facility] ?? 0508 ??- ??CT LUMBAR SPINE WO [...] processes versus sequela of prior fractures, unchanged Fourth Grade Teacher: PSCB Transcribe Date/Time: Jan 24 2025 4:06P Dictated by : KHLOE DELGADO MD This examination was interpreted and the report reviewed and electronically signed by: KHLOE DELGADO MD on Jan 24 2025 3:21PM EST This document has been addended by: KHLOE DELGADO MD on Jan 24 2025 4:10PM EST Authorizing ProviderResult TypeResult StatusSadenise Cruz [facility] ORDERABLES Edited * CT THORACIC SPINE [...] processes versus sequela of prior fractures, unchanged Fourth Grade Teacher: SRINI ?? Transcribe Date/Time: Jan 24 2025 [...] OF EXAM: Jan 24 2025 ??2:16PM ?? [facility] ?? 0514 ??- ??CT THORACIC SPINE WO [...] processes versus sequela of prior fractures, unchanged Fourth Grade Teacher: SRINI Transcribe Date/Time: Jan 24 2025 4:06P Dictated by : KHLOE DELGADO MD This examination was interpreted and the report reviewed and electronically signed by: KHLOE DELGADO MD on Jan 24 2025 3:21PM EST This document has been addended by: KHLOE DELGADO MD on Jan 24 2025 4:10PM EST Authorizing ProviderResult TypeResult Suzan Cruz [facility] [place] ORDERABLES Edited * Type and screen (01/24/2025 5:28 AM EDT)ComponentValueRef RangeTest Method Analysis TimePerformed AtPathologist SignatureABO UqlldtcpC93/10/2025 10:53 AM [facility] B[facility] AKOELpHjeemlvx04/10/2025 10:53 [facility] Antibody RpqtxqWxgrnnfi71/10/2025 10:53 AM [facility] BANKType And Screen Zjeanerfcj86/13/2025 23:5901/24/2025 10:53 AM [facility] MA[facility] BLOOD [facility] Specimen (Source)Anatomical Location / LateralityCollection Method / Volume Collection TimeReceived TimeBlood (Blood, Venous)01/24/2025 5:28 AM EDT 01/24/2025 10:00 AM EDT Narrative Authorizing ProviderResult TypeResult StatusJonathan Cruz [facility] B[facility] TEST ORDERABLESFinal ResultPerforming OrganizationAddressCity/State/ZIP Code Phone Number [facility] [address] [place] [address] [facility] B[facility] [address] [address] * (ABNORMAL) Sedimentation rate, automated (01/19/2025 11:11 AM EDT)Component ValueRef RangeTest MethodAnalysis TimePerformed AtPathologist HyfkprpwmUSI07 (H)0 - 15 mm/hr01/19/2025 6:46 PM EDTCOUR [facility] LABSpecimen (Source)Anatomical Location / LateralityCollection Method / VolumeCollection TimeReceived TimeBlood (Blood, Venous)01/19/2025 11:11 AM EDT1 5:49 PM EDT Narrative Authorizing ProviderResult TypeResult StatusHaris [facility] ORDERABLES Final ResultPerforming OrganizationAddressCity/State/ZIP CodePhone Number [facility] [address] [place] [id number] [facility] [address] [address] * POCT glucose (01/18/2025 8:29 PM EDT) Only the most recent of2 resultswithin the time period is included. ComponentValueRef RangeTest MethodAnalysis TimePerformed AtPathologist Signature Glucose Blood, [id number] - 120 mg/dLSM ROCHESpecimen (Source)Anatomical Location / [...] tube tip within the distal stomach/proximal duodenum. Fourth Grade Teacher: SRINI ?? Transcribe Date/Time: Jan ??2024 ??2:49P [...] tube tip within the distal stomach/proximal duodenum. Fourth Grade Teacher: SRINI Transcribe Date/Time: Jan 17 2025 2:49P [...] Team MemberRelationshipSpecialtyStart DateEnd Date Rusty Delgado [address] [facility] [address] [place] [address] [facility] - General09/30/24
--- OUTSIDE RECORDS SUMMARY | 2025-03-24 07:07 | XMS_ITS | Clinical Summary ---
Author Organization [facility] Address [address] [place] [address] Care Team Providers Care Television Engineering Teacher Name Role Phone Rusty Delgado MD Unavailable [phone] Rusty Delgado MD Primary Care Provider [phone] Allergies No known active allergies Medications MedicationSigDispense [...] by mouth every 8 (eight) hours if hdtjww7310/30/2024tive famotidine (Pepcid) 20 MG tablet Take 20 mg by mouth in the morning and 20 mg in the evening.11/12/2024tive furosemide (Lasix) 40 MG tablet Take 40 mg by mouth in the morning.10/31/2024tive linaCLOtide (Linzess) 145 MCG capsule Take 145 mcg by mouth in the morning.11/12/2024tive magnesium hydroxide (Milk of Magnesia) 400 MG/5ML suspension Take 30 mL by mouth Daily as latupd3911/15/2024tive melatonin 3 MG tablet Take 3 mg by mouth at tyvlfkg0311/12/2024tive methocarbamol (Robaxin) 750 MG tablet Take 750 mg by mouth 3 (three) times a day as ffsetn9511/12/2024tive midodrine (Proamatine) 10 MG tablet Take 10 mg by mouth in the morning and 10 mg at noon and 10 mg in the evening. 11/12/2024tive pantoprazole (ProtoNix) 40 MG EC tablet Take 40 mg by mouth in the morning and 40 mg in the evening. Take before meals. 11/12/2024tive tamsulosin (Flomax) 0.4 MG 24 hr capsule Take 0.4 mg by mouth at lxqmgbm9511/12/2024tive traZODone (Desyrel) 50 MG tablet Take 50 mg by mouth at eriahnd5711/12/2024tive ursodiol (Actigall) 300 MG capsule Take 300 mg by mouth in the morning and 300 mg at noon and 300 mg in the evening.11/12/2024tive valGANciclovir (Valcyte) 450 MG tablet Take 900 mg by mouth in the morning and 900 mg in the evening. Take with meals. 10/30/2024tive Active Problems ProblemNoted DateDiagnosed DateBiliary stricture of transplanted liver10/28/2024 Chronic bilateral low back pain without ganxprrw70/08/2025VRE (vancomycin- resistant Enterococci) hsqkqmupn44/06/2025Intra-abdominal infection after surgical znlxcmrid77/06/2025ytomegalovirus (CMV) ioeorme6410/09/2024nemia due to multiple whotnfuwai18/24/2025ritical illness /15/2025Weakness 09/24/2024Steroid-induced rokdhqdltobhh35/04/2025ute renal acqzuih2209/14/2024 History of liver szxzonjtmh97/26/2025hronic kidney wjlcrel5409/06/2024 Hepatocellular dgfouiefx43/17/2025Portal hypertension with esophageal varices 08/31/2024Polyp of colon08/31/2024KD stage 3a, GFR 45-59 ml/min08/27/2024Severe protein-calorie malnutrition (HHS-HCC)08/27/20247395Smcmmrozylia72/13/2025Hepatic itcvcgcckrehsd55/09/2025History of tobacco abuse03/08/2024Nonalcoholic steatohepatitis (JARAMILLO)03/08/2024leural /04/2024ge-related nuclear cataract of both eyes01/18/2024ortic root nbiylomloh36/05/2024 Assessment & Plan (12/21/2023 9:15 AM EDT): 3.8 cm ECHO 12/20/2023 QUESADA (dyspnea on exertion)12/13/2023Other nmfnmyd4112/13/2023Secondary esophageal varices without otysinod76/28/2024lcoholic cirrhosis of liver with ascites 10/13/20232674Agttabpyp93/18/5570Qsvsic66/18/2024bnormal weight loss07/18/2023 Episodic altered smsjyqfyi76/02/2024Grade II cdtplrcierm41/07/2024Fissure in ano 05/18/2023Hx of colonic tkdzzc1603/21/20237441Oieswcl36/30/2023arrett's esophagus 11/17/2022rystalline deposits in gkahevcl31/03/6756Rjlklzjpmcmg81/03/2023 Epiretinal edibojia47/03/2023Fatty liver11/17/20227911Dtvidwqp08/03/2023Metabolic syndrome X11/17/2022Nuclear senile /03/2152Ctqkgzdsnpbwelnr63/03/2023 Olecranon vuomrndu83/23/6679Tewtrvb40/23/2019Hyperglycemia due to type 2 diabetes hgxgtygw18/24/2019Class 1 kxbmghp0607/26/2018Primary gout07/26/2018 Ventricular premature beats06/28/2017Basal cell carcinoma of skin06/27/2017 Incisional lzitoa0912/06/2012GERD (gastroesophageal reflux disease)11/26/2012 Abhednlyhoqe34/12/2013 Resolved Problems ProblemNoted DateDiagnosed DateResolved DateBenign essential hypertension 4Controlled type 2 diabetes mellitus without complication, without long-term current use of darudmw03HTN (hypertension) Encounters DateTypeDepartmentCare IymfLwjikpkllnv54/04/2025bstract [facility] [address] [place] [address] Rusty Delgado MD 03/18/2025bstract [facility] [address] [place] [address] Rusty Delgado MD 03/18/2025bstract [facility] [address] [place] [address] Rusty Delgado MD 03/18/2025bstract [facility] [address] [place] [address] Rusty Delgado MD 03/18/2025bstract [facility] [address] [place] [address] Rusty Delgado MD 03/10/2025bstract [facility] [address] [place] [address] Rusty Delgado MD 03/10/2025Telephone [facility] [address] [place] [address] Rusty Delgado MD 03/06/2025Telephone [facility] [address] [place] [address] Rusty Delgado MD 02/24/2025bstract [facility] [address] [place] [address] Rusty Delgado MD 02/24/2025bstract [facility] [address] [place] [address] Rusty Delgado MD 02/17/2025Telephone [facility] [address] [place] [address] Ann Castellon LPN 02/03/2025bstract [facility] [address] [place] [address] Rusty Delgado MD 01/24/2025linisync Result Encounter [facility] Unsolicited Provider, [...] Months Immunizations ImmunizationAdministration DatesNext DueHep A, Adult08/28/2024,05/02/2024 HepB-CpG/04/2024,05/02/2024Influenza, High Dose Seasonal, Preservative Free 03/04/2024,02/01/2022,02/17/2021Influenza, Seasonal, Quadrivalent, Adjuvanted 01/24/2023Influenza, Vqcjnuuqhxf87/09/2013Influenza, injectable, quadrivalent 02/13/2017Influenza, injectable, quadrivalent, preservative free02/10/2019 Influenza, seasonal, jtpcrpswit05/17/2016,02/10/2015,01/14/2014Pneumococcal Conjugate PCV 4Pneumococcal Conjugate PCV 4RSV, recombinant, protein subunit RSVpreF, adjuvant reconstitu, 120mcg/0.5mL, PF (Arexvy)06/10/2024Tdap105/23/2021Zoster, Cyvmvpkcizr47/14/2023Zoster, live 03/24/2015 Family History Medical HistoryRelationNameCommentsHypertensionFatherWilliam E KoenigBreast cancerNeg HxColon cancerNeg HxOvarian cancerNeg HxRelationNameStatusComments Ibtirsu4UmuiymKpbincb E KoenigDeceasedMotherDeceasedSister1 Social History Tobacco UseTypesPacks/DayYears UsedDateSmoking Tobacco: FormerCigarettesQuit: 1990Smokeless Tobacco: Never Tobacco Cessation:Counseling Given: Not Answered Alcohol UseStandard Drinks/WeekCommentsYes0 (1 standard drink = 0.6 oz pure alcohol)2-3 times per week, 1-2 drinks at a tymoG7723 Health LiteracyAnswerDate RecordedHow often do you need to have someone help you when you read instructions, pamphlets, or other written material from your doctor or pharmacy? Yhubve8812/12/2023Social Connection and Isolation PanelAnswerDate RecordedIn a typical week, how many times do you talk on the phone with family, friends, or neighbors?Never12/12/2023How often do you get together with friends or relatives?Never12/12/2023How often do you attend anabaptist or oriental orthodox services? Never12/12/2023o you belong to any clubs or organizations such as anabaptist groups, unions, fraternal or athletic groups, or school groups?No12/12/2023How often do you attend meetings of the clubs or organizations you belong to?Never 12/12/2023re you , , , , never , or living with a partner?Ohvzsic7312/12/2023UDIT-CAnswerDate RecordedQ1: How often do you have a [...] hard at all12/12/2023HQ-2AnswerDate Recorded Patient Health Questionnaire-2 [facility]735[facility] [place] of Occup[facility] - Occupational Stress QuestionnaireAnswerDate RecordedDo you feel stress - tense, restless, nervous, or anxious, or unable to sleep at night because your mind is troubled all the time - these days?To some jrmqzt9512/12/2023Exercise Vital SignAnswerDate RecordedOn average, how many days [...] were you homeless or living in a care home (including now)?12/12/2023Sex and Gender InformationValueDate RecordedSex Assigned at TnuiyBsql26/27/2024 1:36 PM EDTLegal VgkKuwn7406/29/2022 11:50 PM EDTGender BzvhkvhwXlvd85/27/2024 1:36 PM EDTSexual KwummotaputMcqpyiu80/27/2024 1:36 PM EDT Last Filed Vital Signs Vital SignReadingTime TakenCommentsBlood Esvdjjpi352/7605 11:11 AM EDT Ezyhc251308/19/2024 11:11 AM WMABhnowlieypp02.1 ??C (97 ??F)08/19/2024 11:11 AM EDTRespiratory Ndks970508/19/2024 11:11 AM EDTOxygen Ysfusorgnz54%08/19/2024 11:11 AM EDTInhaled Oxygen Concentration--Koryef21.5 kg (193 lb)08/19/2024 11:11 AM FWLTgakgx040.3 cm (5' 9 )08/19/2024 11:11 AM EDTBody Mass Index28.505 11:11 AM EDT Plan of Treatment Health MaintenanceDue DateLast DoneCommentsCT Ciqnhgfizbmh89/18/1954FIT-DNA 1953FIT1953FOBT1953OVID-19 Vaccine (3 - Moderna risk series) , 1Diabetes: Urine Protein Cvryeomsi98/09/2025 4Diabetes: Hemoglobin A1C5004/29/2024, 11/15/2023, 05/26/2023, Additional history existsInfluenza Vaccine (#1)5105/04/2023, 01/24/2023, 02/01/2022, Additional history existsDiabetes: Retinopathy Oreteuakd69/03/2026 01/18/2024, 01/18/2024, 01/18/2024, Additional history existsSigmoidoscopy 5Colonoscopy, 08/31/2024, 08/08/2019 Colorectal Cancer Msqkvzibs62/17/2035Pneumococcal Vaccine: 65+ YearsCompleted 03/04/2024, 03/04/2024 Procedures Procedure NamePriorityDate/TimeAssociated DiagnosisCommentsCT THORACIC SPINE WO IVCON01/24/2025 2:[address] LUMBAR SPINE WO IVCON01/24/2025 2:16 PM EDT [facility] CMV DNA DETECTION AND CJGCUDeldzdx35/06/2025 4:30 AM EDT [facility] TACROLIMUS BLD-SUOZEuzmgvi40/06/2025 4:30 AM EDT [facility] GGT SERPL-JLWKWtftrca59/06/2025 4:30 AM EDT [facility] MAGNESIUM SERPL-MCNIRtneoac46/06/2025 4:30 AM EDT [facility] CRP SERPL-YGGABhxokep03/06/2025 4:30 AM EDT [facility] COMP METAB 2000 PNL BGZPVXudzafg74/06/2025 4:30 AM EDT [facility] NT-PROBNP SERPL-MQUPOmtcpaw98/06/2025 4:30 AM EDT [facility] PHOSPHATE SERPL-QTYVBlyebii56/06/2025 4:30 AM EDT [facility] CBC W AUTO DIFF YWJEsfyrlz13/06/2025 4:30 AM EDT [facility] TACROLIMUS BLD-CEWMQeclkok96/02/2025 4:47 AM EDT [facility] GGT SERPL-WHFHIaefske45/02/2025 4:47 AM EDT [facility] CBC W AUTO DIFF EEHJsizfpj54/02/2025 4:47 AM EDT [facility] MAGNESIUM SERPL-UKPKDzdvkav22/02/2025 4:47 AM EDT [facility] CRP SERPL-IPPTEfxncrv28/02/2025 4:47 AM EDT [facility] COMP METAB 2000 PNL ZGMWSYjzvviv86/02/2025 4:47 AM EDT [facility] PHOSPHATE SERPL-TWZPBbbpqqh68/02/2025 4:47 AM EDT [facility] NT-PROBNP SERPL-EVHNEvvfjnq91/02/2025 4:47 AM EDT [facility] GGT SERPL-WZFHUgmpyga04/01/2025 5:30 AM EDT [facility] CBC W AUTO DIFF PQLDnaozfg83/01/2025 5:30 AM EDT [facility] MAGNESIUM SERPL-FUGTHjmpcdo93/01/2025 5:30 AM EDT [facility] CRP SERPL-LOCGMbblzjb32/01/2025 5:30 AM EDT [facility] COMP METAB 2000 PNL SAATZYgkyunh44/01/2025 5:30 AM EDT [facility] TACROLIMUS BLD-ERAMShdzprm86/01/2025 5:01 AM EDT [facility] BACTERIA UR RVKLHajyziq14/24/2025 3:16 PM EDT [facility] BACTERIA BLD ZBMQZctfodg97/22/2025 7:11 PM EDT [facility] BACTERIA BLD GNHVGpetvwi52/22/2025 5:11 PM EDT ECHO01/02/2025 8:55 AM EDT ECG 12-LEAD12/25/2024 1:20 PM EDT [facility] BACTERIA SPEC ANAEROBE OOPUDtpbyae86/08/2025 11:44 AM EDT [facility] BACTERIA FLD BPERXyylwmy37/08/2025 11:44 AM EDT [facility] CYTOLOGY NON-NWTImkkzre69/08/2025 11:44 AM EDT POCT GLYCATED HEMOGLOBIN, HZQBVYcryskv30/31/2024 11:40 AM EDT Metabolic syndrome X MICROALBUMIN / CREATININE URINE MJFNCPaqhdhb22/09/2024 8:31 AM EST Screening for prostate cancer Benign essential hypertension Thrombocytopenia Fatty liver Dyslipidemia COLOR FUNDUS PHOTOGRAPHY - OU - BOTH NETETelprhp70/07/2023 12:00 PM EST JZSMSWZWQIGRqgbzbk63/23/2020 12:00 PM EDT from Last 3 Months or Most Recently Relevant to Health Maintenance Results * CT THORACIC SPINE WO IVCON (01/24/2025 2:16 PM EDT)Anatomical RegionLaterality ModalityOtherSpecimen (Source)Anatomical Location / LateralityCollection Method / VolumeCollection TimeReceived Time01/24/2025 2:16 PM EDT Addenda Addendum by Radiology, RadiologistMD on 01/24/2025 4:13 PM EDT * * *Final Report* * * * ??* ??* SEE BOTTOM OF REPORT FOR ADDENDED TEXT * ??* ??* DATE OF EXAM: Jan 24 2025 ??2:16PM ?? [facility] ?? 0514 ??- ??CT THORACIC SPINE WO [...] processes versus sequela of prior fractures, unchanged Cell Coverer: SRINI ?? Transcribe Date/Time: Jan 24 2025 ??4:06P Dictated by : KHLOE DELGADO MD This examination was interpreted and the report reviewed and electronically signed by: KHLOE DELGADO MD on Jan 24 2025 ??3:21PM ??EST This document has been addended by: KHLOE DELGADO MD on Jan 24 2025 ?? 4:10PM ??EST [id number]^AGFA_IDC^SI^ACN Narrative 01/24/2025 3:23 PM EDT * * *Final Report* * * DATE OF EXAM: Jan 24 2025 ??2:16PM ?? C ?? 0514 ??- ??CT THORACIC SPINE WO [...] and assume there are 5 lumbar-type vertebrae. Cell Coverer: PSCB ?? Transcribe Date/Time: Jan 24 2025 ??2:46P Dictated by : KHLOE DELGADO MD This examination was interpreted and the report reviewed and electronically signed by: KHLOE DELGADO MD on Jan 24 2025 ??3:21PM ??EST [id number]^AGFA_IDC^SI^ACN Procedure Note Radiology, Radiologist, - 01/24/2025 * * *Final Report* * * DATE OF EXAM: Jan 24 2025 2:16PM [facility] 0514 - CT THORACIC SPINE WO IVCON [...] and assume there are 5 lumbar-type vertebrae. Cell Coverer: SRINI Transcribe Date/Time: Jan 24 2025 2:46P Dictated by : KHLOE DELGADO MD This examination was interpreted and the report reviewed and electronically signed by: KHLOE DELGADO MD on Jan 24 2025 3:21PM EST [id number]^AGFA_IDC^SI^ACN Authorizing ProviderResult TypeResult StatusGeneric External Data Provider [facility] IMAGINGEdited Result - Final * CT LUMBAR SPINE WO IVCON (01/24/2025 2:16 PM EDT)Anatomical RegionLaterality ModalityOtherSpecimen (Source)Anatomical Location / LateralityCollection Method / VolumeCollection TimeReceived Time01/24/2025 2:16 PM EDT Addenda Addendum by Radiology, RadiologistMD on 01/24/2025 4:13 PM EDT * * *Final Report* * * * ??* ??* SEE BOTTOM OF REPORT FOR ADDENDED TEXT * ??* ??* DATE OF EXAM: Jan 24 2025 ??2:16PM ?? [facility] ?? 0508 ??- ??CT LUMBAR SPINE WO [...] processes versus sequela of prior fractures, unchanged Cell Coverer: SRINI ?? Transcribe Date/Time: Jan 24 2025 ??4:06P Dictated by : KHLOE DELGADO MD This examination was interpreted and the report reviewed and electronically signed by: KHLOE DELGADO MD on Jan 24 2025 ??3:21PM ??EST This document has been addended by: KHLOE DELGADO MD on Jan 24 2025 ?? 4:10PM ??EST [id number]^AGFA_IDC^SI^ACN Narrative 01/24/2025 3:23 PM EDT * * [...] and assume there are 5 lumbar-type vertebrae. Cell Coverer: PSCB ?? Transcribe Date/Time: Jan 24 2025 ??2:46P Dictated by : KHLOE DELGADO MD This examination was interpreted and the report reviewed and electronically signed by: KHLOE DELGADO MD on Jan 24 2025 ??3:21PM ??EST [id number]^AGFA_IDC^SI^ACN Procedure Note Radiology, Radiologist, - 01/24/2025 * * *Final Report* * * DATE OF EXAM: Jan 24 2025 2:16PM [facility] 0508 - CT LUMBAR SPINE WO IVCON [...] and assume there are 5 lumbar-type vertebrae. Cell Coverer: SRINI Transcribe Date/Time: Jan 24 2025 2:46P Dictated by : KHLOE DELGADO MD This examination was interpreted and the report reviewed and electronically signed by: KHLOE DELGADO MD on Jan 24 2025 3:21PM EST [id number]^AGFA_IDC^SI^ACN Authorizing ProviderResult TypeResult StatusGeneric External Data Provider [...] situation. Test performed by chemiluminescent immunoassay using [employer] i.Specimen (Source)Anatomical Location / LateralityCollection Method / VolumeCollection TimeReceived Time01/20/2025 4:30 AM EDT1 5:29 PM EDT Narrative [facility] - 01/20/2025 7:30 PM EDT Specimen Type: BLOOD SPECIMEN Ordering Facility: [facility] ?Address: [address] [place] [address] Original Ordering Provider: DAVID BLACKBURN Authorizing ProviderResult TypeResult StatusGeneric External Data Provider CLINISYNCFinal ResultPerforming OrganizationAddressCity/State/ZIP CodePhone Number [facility] [address] [address] * [facility] PHOSPHATE SERPL-MCNC (01/20/2025 4:30 AM EDT) Only the most recent of2 resultswithin the time period is included. ComponentValueRef RangeTest MethodAnalysis TimePerformed AtPathologist Signature [facility] PHOSPHATE SERPL-MCNC4.12.7 - 4.8 mg/dLCCFSpecimen (Source)Anatomical Location / LateralityCollection Method / VolumeCollection TimeReceived Time 01/20/2025 4:30 AM EDT1 8:56 AM EDT Narrative [facility] - 01/20/2025 10:57 AM EDT Specimen Type: BLOOD SPECIMEN Ordering Facility: [facility] ?Address: [address] [place] [address] Original Ordering Provider: DAVID BLACKBURN Authorizing ProviderResult TypeResult StatusGeneric External Data Provider CLINISYNCFinal ResultPerforming OrganizationAddressCity/State/ZIP CodePhone Number [facility] [address] [place] [address] * (ABNORMAL) [facility] NT-PROBNP SERPL-MCNC (01/20/2025 4:30 AM EDT) Only the most recent of2 resultswithin the time period is included. ComponentValueRef RangeTest MethodAnalysis TimePerformed AtPathologist Signature [facility] NT-PROBNP SERPL-HFCD912(H)<125 pg/mLCCFSpecimen (Source)Anatomical Location / LateralityCollection Method / VolumeCollection TimeReceived Time01/20/2025 4:30 AM EDT1 8:56 AM EDT Narrative [facility] - 01/20/2025 11:01 AM EDT Specimen Type: BLOOD SPECIMEN Ordering Facility: [facility] ?Address: [address] [place] [address] Original Ordering Provider: DAVID BLACKBURN Authorizing ProviderResult TypeResult StatusGeneric External Data Provider CLINISYNCFinal ResultPerforming OrganizationAddressCity/State/ZIP CodePhone Number [facility] [address] [place] [address] * (ABNORMAL) [facility] GGT SERPL-CCNC (01/20/2025 4:30 AM EDT) Only the most recent of3 resultswithin the time period is included. ComponentValueRef RangeTest MethodAnalysis TimePerformed AtPathologist Signature [facility] GGT SERPL-UKAD038(H)10 - 70 U/LCCFSpecimen (Source)Anatomical Location / LateralityCollection Method / VolumeCollection TimeReceived Time01/20/2025 4:30 AM EDT1 1:12 PM EDT Narrative [facility] - 01/20/2025 3:18 PM EDT Specimen Type: BLOOD SPECIMEN Ordering Facility: [facility] ?Address: [address] [place] [address] Original Ordering Provider: DAVID BLACKBURN Authorizing ProviderResult TypeResult StatusGeneric External Data Provider CLINISYNCFinal ResultPerforming OrganizationAddressty/State/ZIP CodePhone Number [facility] [address] [address] * (ABNORMAL) [facility] CRP SERPL-MCNC (01/20/2025 4:30 AM EDT) Only the most recent of3 resultswithin the time period is included. ComponentValueRef RangeTest MethodAnalysis TimePerformed AtPathologist Signature [facility] CRP SERPL-MCNC17.1(H)<0.9 mg/dLCCFSpecimen (Source)Anatomical Location / LateralityCollection Method / VolumeCollection TimeReceived Time01/20/2025 4:30 AM EDT1 8:56 AM EDT Narrative [facility] - 01/20/2025 11:11 AM EDT Specimen Type: BLOOD SPECIMEN Ordering Facility: [facility] ?Address: [address] [place] [address] Original Ordering Provider: DAVID BLACKBURN Authorizing ProviderResult TypeResult StatusGeneric External Data Provider CLINISYNCFinal ResultPerforming OrganizationAddWellSpan Good Samaritan Hospitalty/[facility]/ZIP CodePhone Number [facility] [address] [place] [phone] * [facility] CMV DNA DETECTION AND QUANT (01/20/2025 4:30 AM EDT)ComponentValueRef RangeTest MethodAnalysis TimePerformed AtPathologist SignatureCCF CMV DNA PLAS JESSICA+PROBE-ACNCNot detectedNot DetectedCCFSpecimen (Source)Anatomical Location / LateralityCollection Method / VolumeCollection TimeReceived Time01/20/2025 4:30 AM EDT1 5:29 PM EDT Narrative [facility] - 01/20/2025 11:41 PM EDT Specimen Type: BLOOD SPECIMEN Ordering Facility: [facility] ?Address: [address] [place] [address] Original Ordering Provider: DAVID BLACKBURN Authorizing ProviderResult TypeResult StatusGeneric External Data Provider CLINISYNCFinal ResultPerforming OrganizationAddressCity/State/ZIP CodePhone Number [facility] [address] [place] [address] * (ABNORMAL) [facility] CBC W AUTO DIFF BLD (01/20/2025 4:30 AM EDT) Only the most recent of3 resultswithin the time period is included. ComponentValueRef RangeTest MethodAnalysis TimePerformed AtPathologist Signature [facility] WBC # BLD AUTO15.14(H)3.70 - 11.00 k/uLCCFCCF RBC # BLD AUTO2.50(L)4.20 - 6.00 m/uLCCFCCF HGB BLD-MCNC8.1(L)13.0 - 17.0 g/dLCCFCCF HCT VFR BLD AUTO25.6(L) 39.0 - 51.0 %CCFCCF MCV RBC AKHM924.4(H)80.0 - 100.0 fLCCFCCF MCH RBC QN AUTO 32.426.0 - 34.0 pgCCFCCF MCHC RBC AUTO-MCNC31.630.5 - 36.0 g/dLCCFCCF RDW RBC-RTO19.9(H)11.5 - 15.0 %CCFCCF PLATELET # BLD [id number] - 400 k/uLCCFCCF PMV BLD AUTO10.69.0 - [...] EDT Specimen Type: BLOOD SPECIMEN Ordering Facility: [facility] ?Address: [address] [place] [address] Original Ordering Provider: DAVID BLACKBURN Authorizing ProviderResult TypeResult StatusGeneric External Data Provider CLINISYNCFinal ResultPerforming OrganizationAddressCity/State/ZIP CodePhone Number [facility] [address] [place] [address] * (ABNORMAL) [facility] MAGNESIUM SERPL-MCNC (01/20/2025 4:30 AM EDT) Only the most recent of3 resultswithin the time period is included. ComponentValueRef RangeTest MethodAnalysis TimePerformed AtPathologist Signature [facility] MAGNESIUM SERPL-MCNC1.6(L)1.7 - 2.3 mg/dLCCFSpecimen (Source)Anatomical Location / LateralityCollection Method / VolumeCollection TimeReceived Time 01/20/2025 4:30 AM EDT1 8:56 AM EDT Narrative [facility] - 01/20/2025 11:11 AM EDT Specimen Type: BLOOD SPECIMEN Ordering Facility: [facility] ?Address: [address] [place] [address] Original Ordering Provider: DAVID BLACKBURN Authorizing ProviderResult TypeResult StatusGeneric External Data Provider CLINISYNCFinal ResultPerforming OrganizationAddressCity/State/ZIP CodePhone Number [facility] [address] [place] [address] * (ABNORMAL) [facility] COMP METAB 2000 PNL SERPL (01/20/2025 4:30 AM EDT) Only the most recent of3 resultswithin the time period is included. ComponentValueRef RangeTest MethodAnalysis TimePerformed AtPathologist Signature [facility] PROT SERPL-MCNC6.0(L)6.3 - 8.0 g/dLCCFCCF ALBUMIN SERPL-MCNC2.9(L)3.9 - 4.9 g/dLCCFCCF CALCIUM SERPL-MCNC8.78.5 - 10.2 mg/dLCCFCCF BILIRUB SERPL-MCNC0.30.2 - 1.3 mg/dLCCFCCF ALP SERPL-OLOD147(H)38 - 113 U/LCCFCCF AST SERPL-DHLB6910 - 40 U/LCCFCCF ALT SERPL-SZHT4106 - 54 U/LCCFCCF GLUCOSE SERPL-DNVK5962 - 99 mg/dLCCF Comment: The [place] [employer] (ADA) provides [...] [place] [employer]. Diabetes Care. 2016.39(Suppl 1). [facility] BUN SERPL-GMBN606 - 24 mg/dLCCFCCF CREAT SERPL-MCNC0.970.73 - 1.22 mg/dLCCF CCF SODIUM SERPL-KDNW900(L)136 - 144 mmol/LCCFCCF POTASSIUM SERPL-SCNC5.3(H)3.7 - 5.1 mmol/LCCFCCF CHLORIDE SERPL-SCNC97(L)98 - 107 mmol/LCCFCCF CO2 SERPL-SCNC 2322 - 30 mmol/LCCFCCF ANION GAP SERPL-SCNC98 - 15 mmol/LCCFEGFRCR SERPLBLD CKD- EPI 20201117>=60 mL/min/1.73m???CCFComment:Estimated Glomerular Filtration Rate (eGFR) is calculated [...] EDT Specimen Type: BLOOD SPECIMEN Ordering Facility: [facility] ?Address: [address] [place] [address] Original Ordering Provider: DAVID BLACKBURN Authorizing ProviderResult TypeResult StatusGeneric External Data Provider CLINISYNCFinal ResultPerforming OrganizationAddressCity/State/ZIP CodePhone Number [facility] [address] [place] [address] * (ABNORMAL) [facility] BACTERIA UR CULT (01/08/2025 [...] Data Provider CLINISYNCFinal ResultPerforming OrganizationAddressty/State/ZIP CodePhone Number [facility] [address] [address] [facility] * [facility] BACTERIA BLD CULT (01/06/2025 7:11 PM EDT) Only the most recent of2 [...] Data Provider CLINISYNCFinal ResultPerforming OrganizationAddressty/State/ZIP CodePhone Number [facility] [address] [address] * ECHO (01/02/2025 8:55 AM EDT)Anatomical RegionLateralityModalityOtherSpecimen (Source)Anatomical Location / LateralityCollection Method / VolumeCollection TimeReceived Time01/02/2025 8:55 AM EDT Narrative 01/02/2025 11:48 AM EDT ? Echocardiography Report: Transthoracic Echo [facility] [place] [facility] Date of service: 01/02/2025 8:55:11 AM RESOURCES SUPERVISOR ? Ordering physician: BARRERA RIVERA Exam indication: [...] * * Final * * * CC [employer] ?: [id number]^Syng[employer]Dynamics^SI^SUID Procedure Note Radiology, Radiologist, MD - 01/02/2025 Echocardiography Report: Transthoracic Echo Main [place] Bedside Date of service: 01/02/2025 8:55:11 AM RESOURCES SUPERVISOR Ordering physician: BARRERA RIVERA Exam indication: Evaluation [...] * * Final * * * CC [employer] : [id number]^[employer]^SI^SUID Authorizing ProviderResult TypeResult StatusGeneric External Data Provider [...] Interval ? : 412 ? ms QTC Calculation(Bazett) ?: 457 ? ms Calculated P [place] ?: 21 ?degrees Calculated R [place] ?: 34 ?degrees Calculated T [place] ?: 26 ?degrees WARNING: INTERPRETATION OF THIS ECG, ALTHOUGH ATTEMPTED, MAY BE ADVERSELY AFFECTED BY DATA QUALITY SINUS RHYTHM WITH PREMATURE ATRIAL COMPLEXES LOW VOLTAGE QRS, CONSIDER PULMONARY DISEASE, PERICARDIAL EFFUSION, OR NORMAL VARIANT BORDERLINE ECG Confirmed by ABENA URENA MD (57) on 01/22/2025 11:44:19 AM NAME : LOYD BLANDON PID : [id number] : 1955 ?? Gender : Male Race : ORD : [id number] ? Procedure Date : Dec 25 2024 [...] Reason : Chest Pain ? Location : 2 : G52 ??G053- ? Overread By : ABENA URENA MD Edited By : ABENA URENA MD Referred By : PAUL SNOWDEN Acquired by : mira Procedure Note Radiology, Radiologist, MD - 01/22/2025 Ventricular Rate : 74 BPM Atrial Rate : 74 BPM P-R Interval : 126 ms QRS Duration : 86 ms Q-T Interval : 412 ms QTC Calculation(Bazett) : 457 ms Calculated P [place] : 21 degrees Calculated R [place] : 34 degrees Calculated T [place] : 26 degrees WARNING: INTERPRETATION OF THIS ECG, ALTHOUGH ATTEMPTED, MAY BE ADVERSELY AFFECTED BY DATA QUALITY SINUS RHYTHM WITH PREMATURE ATRIAL COMPLEXES LOW VOLTAGE QRS, CONSIDER PULMONARY DISEASE, PERICARDIAL EFFUSION, ORNORMAL VARIANT BORDERLINE ECG Confirmed by ABENA URENA MD (57) on 01/22/2025 11:44:19 AM NAME : LOYD BLANDON PID : [id number] : 1955 Gender : Male Race : ORD : [id number] Procedure Date : Dec 25 2024 13:20:17 [...] CodePhone Number CCF-CLINISYNC CCF * [facility] CYTOLOGY NON-HAIRSPRING INSPECTOR (12/23/2024 11:44 AM EDT)ComponentValueRef RangeTest MethodAnalysis TimePerformed AtPathologist SignatureCCF CASE REPORTCCFComment: Medical Cytology Report ? Case: [id number] ? Authorizing Provider: ??Burton Quezada MD ?Collected: ? 12/23/2024 11:44 AM ? [...] [R18.8] CCF FINAL PERFORMING LABCCFComment: Technical component, deposition reporter [facility] [address] [place] [address] ??CLIA: [id number] Diagnostic interpretation performed at: [facility], [address] [place] [address] ?? CLIA# [id number] Child Psychiatrist: Emmett New MD AP DISCLAIMERCCFComment: Laboratory Developed Test (LDT) Disclaimer: Performance characteristics of immunohistochemical, immunofluorescent, and chromogenic in-situ hybridization tests have been determined by the performing laboratory within the [facility] Department of Pathology and Laboratory Medicine ([facility], [facility], [facility], [facility], [facility], [facility], or [facility]) in a manner consistent with CLIA requirements. One or more of these tests may not have been cleared or approved by the FDA. The [facility] Department of Pathology and Laboratory Medicineis regulated [...] Type: SPECIMEN OBTAINED BY ASPIRATION Ordering Facility: [facility] ?Address: [address] [place] [address] Original Ordering Provider: BURTON QUEZADA Authorizing ProviderResult TypeResult StatusGeneric External Data Provider CLINISYNCFinal ResultPerforming OrganizationAddWellSpan Good Samaritan Hospitalty/State/ZIP CodePhone Number MALLORY CC [address] [address] * CCF BACTERIA SPEC ANAEROBE CULT (12/23/2024 11:44 AM EDT)ComponentValueRef RangeTest MethodAnalysis TimePerformed AtPathologist SignatureCCF BACTERIA SPEC ANAEROBE CULT CULTURE, ANAEROBE: ?? Negative for anaerobes. CCFSpecimen (Source)Anatomical Location / LateralityCollection Method / Volume Collection TimeReceived Time12/23/2024 11:44 AM EDT12/23/2024 5:07 PM EDT Narrative CLINISYNC - 12/30/2024 9:23 AM EDT Original Ordering Provider: BURTON QUEZADA Authorizing ProviderResult TypeResult StatusGeneric External Data Provider CLINISYNCFinal ResultPerforming OrganizationAddWellSpan Good Samaritan Hospitalty/State/ZIP CodePhone Number MALLORY C[facility] [phone] [address] * CCF BACTERIA FLD CULT (12/23/2024 11:44 AM EDT)ComponentValueRef RangeTest MethodAnalysis TimePerformed AtPathologist SignatureCCF BACTERIA FLD CULT CULTURE, BODY FLD: ?? [...] TypeResult StatusGeneric External Data Provider CLINISYNCFinal ResultPerforming OrganizationAddWellSpan Good Samaritan Hospitalty/State/ZIP CodePhone Number [facility] [phone] [address] * POCT Glycated hemoglobin, total (11/15/2023 11:40 AM EDT)ComponentValueRef RangeTest MethodAnalysis TimePerformed AtPathologist SignatureHemoglobin A1C 5.3Specimen (Source)Anatomical Location / LateralityCollection Method / Volume Collection TimeReceived FzljRylmy08/31/2024 11:40 AM EDT Narrative Authorizing ProviderResult TypeResult Flakito Delgado MDPOINT OF CARE TEST ENTER/EDIT ORDERABLESFinal Result * Microalbumin / creatinine, urine ratio (05/26/2023 8:31 AM EST)ComponentValue Ref RangeTest MethodAnalysis TimePerformed AtPathologist SignatureCREATININE, RANDOM PNXGM0101 - 320 mg/dLQUESTALBUMIN, URINE<0.2See Note: mg/dLQUEST Comment: [...] specimen obtained by clean catch procedure / Ksnaeir6405/26/2023 8:31 AM EST05/26/2023 3:59 PM EST Narrative [facility] - 05/29/2023 2:42 PM EST FASTING:YES FASTING: YES Resulting Agency Comment Performing Organization Information ?Site ID: [id number] ?Name: [facility] ?Address: [address] [place] [address], [address] [place] [id number] ?Director: Roland Duggan MD Authorizing ProviderResult TypeResult StatusRusty SIMON URINE ORDERABLESFinal ResultPerforming OrganizationAddressCity/State/ZIP CodePhone Number QUEST * Color Fundus Photography - OU - Both Eyes (05/24/2022 12:00 PM EST)Anatomical RegionLateralityModalityHeadFundus PhotographySpecimen (Source)Anatomical Location / LateralityCollection Method / VolumeCollection TimeReceived Time 05/24/2022 12:00 PM EST Narrative 05/24/2022 12:00 PM EST [facility]FORMED [facility] LOCATION:[id number] [facility] Procedure Note CONVERSION, GENERIC - 08/31/2022 PERFORMED [facility] LOCATION:[id number] [facility] Authorizing ProviderResult TypeResult StatusDajackie Delgado MDOPHTH PHOTOGRAPHY Final Result * Colonoscopy (08/08/2019 12:00 PM EDT)Anatomical RegionLateralityModality EndoscopySpecimen (Source)Anatomical Location / LateralityCollection Method / VolumeCollection TimeReceived Time08/08/2019 12:00 PM EDT Narrative 08/08/2019 12:00 PM EDT PERFORMED [facility] LOCATION:[id number] polyp- repeat 5 years Procedure Note CONVERSION, GENERIC - 08/31/2022 PERFORMED AT [facility] LOCATION:[id number] polyp- repeat 5 years Authorizing ProviderResult TypeResult Flakito Delgado MDENDOSCOPY PROCEDURE ORDERABLESFinal Result from Last 3 Months or Most Recently Relevant to Health Maintenance Insurance Care Teams Team MemberRelationshipSpecialtyStart DateEnd Date Rusty Delgado MD [address] [facility] [address] [place] [address] PCP - [employer]04/17/22 Rusty Delgado MD [address] [place] [address] [facility]CP [facility] Hospitalnal [facility]11/23/22
--- OUTSIDE RECORDS SUMMARY | 2025-03-24 07:07 | XMS_ITS | Encounter Summary ---
Author Organization [facility] Address [address] [place] [address] Care Team Providers Care Automotive Metalsmith Name Role Phone Rusty Delgado MD Unavailable [phone] Rusty Delgado MD Primary Care Provider [phone] Encounter Details DateTypeDepartmentCare Team (Latest Contact Info)Fdtlqgaghsw74/20/2025Telephone [facility] [address] [place] [address] [place] [address] Rusty Delgado MD [address] [facility] [address] [place] [address] Social History Tobacco UseTypesPacks/DayYears UsedDateSmoking Tobacco: FormerCigarettesQuit: 1990Smokeless Tobacco: NeverAlcohol UseStandard Drinks/WeekCommentsYes0 (1 standard drink = 0.6 oz pure alcohol)2-3 times per week, 1-2 drinks at a time B1300 Health LiteracyAnswerDate RecordedHow often do you need to have someone help you when you read instructions, pamphlets, or other written material from your doctor or pharmacy?Txtexu4212/12/2023Social Connection and Isolation Panel AnswerDate RecordedIn a typical week, how many times do you talk on the phone with family, friends, or neighbors?Never12/12/2023How often do you get together with friends or relatives?Never12/12/2023How often do you attend evangelical or jain services?Never12/12/2023o you belong to any clubs or organizations such as evangelical groups, unions, fraternal or athletic groups, or school groups?No 12/12/2023How often do you attend meetings of the clubs or organizations you belong to?Never12/12/2023re you , , , , never , or living with a partner?Hjpmfig8912/12/2023UDIT-CAnswerDate RecordedQ1: How often do you have a [...] hard at all12/12/2023HQ-2AnswerDate Recorded Patient Health Questionnaire-2 Owylh812[facility] [place] of Occupational Health - Occupational Stress QuestionnaireAnswerDate RecordedDo you feel stress - tense, restless, nervous, or anxious, or unable to sleep at night because your mind is troubled all the time - these days?To some nglaxd0412/12/2023Exercise Vital SignAnswerDate RecordedOn average, how many days [...] homeless or living in a chcf (including now)?No12/12/2023Sex and Gender InformationValueDate RecordedSex Assigned at ClpqgCbnt40/27/2024 1:36 PM EDTLegal IxtCsgh4906/29/2022 11:50 PM EDTGender XqeematoOkkd10/27/2024 1:36 PM EDTSexual PjuyzeckngvZriucxx61/27/2024 1:36 PM EDTdocumented as of this encounter Miscellaneous Notes * Telephone Encounter - Sarina Morris - 03/06/2025 11:14 AM EST Bev from [facility] called and just wanted Dr. Delgado to know that Charles cancelled his appointment with them today. documented in this encounter Plan of Treatment Not on file documented as of this encounter Visit Diagnoses Not on filedocumented in this encounter Care Teams Team MemberRelationshipSpecialtyStart DateEnd Date Rusty Delgado MD [address] [place] [address] [place] [address] PCP - [employer]04/17/22 Rusty Delgado MD [address] [place] [address] [place] [address] PCP - GeneralInternal Medicine11/23/22documented as of this encounter
--- OUTSIDE RECORDS SUMMARY | 2025-03-24 07:07 | XMS_ITS | Patient Health Record ---
Author Organization [facility] [place] Address [address] [place] [address] Care Team Providers Care Channel Machine Operator Name Role Phone Rusty Delgado MD Primary Care Provider Unavail Devyn Ramsey Unavailable [phone] Allergies No Known Allergies Reason For Referral No Information Medications Medication SIG (Take, Route, Frequency, Duration) Notes Start Date End Date Status Furosemide 20 MG TAKE 3 TABLETS BY [facility] TWO TIMES DAILY. Oral; Duration: 5 Days ActiveLactulose 10 GM/15MLOral; Duration: 10 DaysActiveLansoprazole 30 MGTAKE 1 CAPSULE BEFORE A MEAL TWICE DAILY FOR 30 DAYS Oral; Duration: 30 DaysActive Xifaxan 550 MG1 tablet Orally DailyActiveSpironolactone 50 MGOral; Duration: 10 DaysActiveCarvedilol 3.125 MGTAKE 1 TABLET BY MOUTH WITH BREAKFAST AND 1 TABLET WITH EVENING MEAL Oral; Duration: 30 DaysActiveFamotidine 40 MGTAKE 1 TABLET BY MOUTH EVERY DAY IN THE MORNING Oral; Duration: 30 DaysActiveMulti Complete -as directed OrallyActive Immunizations Vaccine Route Administration Date Status Comme nts Flu, Fluad (99965) 65 yrs+, single-dose syringe (4944-4780) Unknown 01/24/2023 Administered Tdap (Boostrix)Ngchhkm18/06/2022AdministeredZOSTER (SHINGLES) VACCINE (HZV) Wlfinhy08/14/2023Administered Social History Tobacco Use: Social History Observation Description Date Details (start date - stop date) Former Smoker NA - NA Tobacco Control (Standard) Question Answer Notes Tobacco use: Former smoker How long has it been since you last smoked?Greater than 10 yearsAdditional Findings: Tobacco vvi-jxgbOp-hlfrn cigarette smoker (20-30/day) Problems Problem Type SNOMED Code ICD Code Onset Dates Problem Status W/U Status Risk Notes Problem Pleural effusion (01540772) Pleu ral effusion in other conditions classified elsewhere (J91.8) ActiveconfirmedProblemNASH - Nonalcoholic steatohepatitis (234921552)JARAMILLO (nonalcoholic steatohepatitis) (K75.81)ActiveconfirmedProblemEx-tobacco user (finding) (175832203)History of tobacco abuse (Z87.891)ActiveconfirmedProblem Hepatic cirrhosis (43120321)Hepatic cirrhosis (K74.60)Activeconfirmed Encounters Encounter Location Date Provider Diagnosis Pulmonary [facility] [address] [place] [address] 04/22/2024 Devyn [facility] [address] [place] [address]/24/2025 Devyn [facility] Plan Of Treatment No Information Insurance Providers Payer Name Payer Address Payer Phone Subscriber Number Group Number Insured Name Patient Relationship to Insured Coverage Start Date Coverage End Date [employer] [address] [place], [place] [id number] [phone] [id number] Marlee Stewartelf - patient is the insured Medical (General) [...] Surgical History Surgery Date(Month/Year) Thoracentesis 12/08/2023 cholecystectomy hemorrhoidectomytonsillectomy and adenoidectomyRight Elbow Surgery EGD/ColonoscopyHernia RepairParacentesisLipoma Removal-NeckHospitalization History Reason Date(Month/Year) Pleural Effusion-TBH 12/07/2023
--- OUTSIDE RECORDS SUMMARY | 2025-03-24 07:07 | XMS_ITS | Encounter Summary ---
Author Organization [facility] Address [address] [place] [address] Care Team Providers Care Octave Board Racker Name Role Phone Rusty Delgado MD Unavailable [phone] Rusty Delgado MD Primary Care Provider [phone] Encounter Details DateTypeDepartmentCare Team (Latest Contact Info)Ykfzhfbafai37/02/2025bstract [facility] [address] [place] [address] [place] [phone] Rusty Delgado MD [address] [facility] [address] [place] [address] Social History Tobacco UseTypesPacks/DayYears UsedDateSmoking Tobacco: FormerCigarettesQuit: 1990Smokeless Tobacco: NeverAlcohol UseStandard Drinks/WeekCommentsYes0 (1 standard drink = 0.6 oz pure alcohol)2-3 times per week, 1-2 drinks at a time B1300 Health LiteracyAnswerDate RecordedHow often do you need to have someone help you when you read instructions, pamphlets, or other written material from your doctor or pharmacy?Tubsny5112/12/2023Social Connection and Isolation Panel AnswerDate RecordedIn a typical week, how many times do you talk on the phone with family, friends, or neighbors?Never12/12/2023How often do you get together with friends or relatives?Never12/12/2023How often do you attend roman catholic or scientology services?Never12/12/2023o you belong to any clubs or organizations such as roman catholic groups, unions, fraternal or athletic groups, or school groups?No 12/12/2023How often do you attend meetings of the clubs or organizations you belong to?Never12/12/2023re you , , , , never , or living with a partner?Emmnrfw6512/12/2023UDIT-CAnswerDate RecordedQ1: How often do you have a [...] hard at all12/12/2023HQ-2AnswerDate Recorded Patient Health Questionnaire-2 Lmdde255[facility] [place] of Occupational Health - Occupational Stress QuestionnaireAnswerDate RecordedDo you feel stress - tense, restless, nervous, or anxious, or unable to sleep at night because your mind is troubled all the time - these days?To some enpziz6112/12/2023Exercise Vital SignAnswerDate RecordedOn average, how many days [...] now)?No12/12/2023Sex and Gender InformationValueDate RecordedSex Assigned at JemsbLvmr34/27/2024 1:36 PM EDTLegal DkyJhly2806/29/2022 11:50 PM EDTGender LwuwsozeDvep82/27/2024 1:36 PM EDTSexual QqeoixjcwvhCiqbaik80/27/2024 1:36 PM EDTdocumented as of this encounter Plan of Treatment Not on file documented as of this encounter Visit Diagnoses Not on filedocumented in this encounter Care Teams Team MemberRelationshipSpecialtyStart DateEnd Date Rusty Delgado MD [address] [facility] [address] [place] [address] PCP - Aetna04/17/22 Rusty Delgado MD [address] [facility] [address] [place] [address] PCP - GeneralInternal Medicine11/23/22documented as of this encounter
--- OUTSIDE RECORDS SUMMARY | 2025-03-24 07:07 | XMS_ITS | Encounter Summary ---
Author Organization [facility] Address [address] [place] [address] Care Team Providers Care Pathology Laboratory Aide Name Role Phone Rusty Delgado MD Unavailable [phone] Rusty Delgado MD Primary Care Provider [phone] Encounter Details DateTypeDepartmentCare Team (Latest Contact Info)Jdontwxcgzl64/02/2025bstract [facility] [address] [place] [address] [place] [address] Rusty Delgado MD [address] [facility] [address] [place] [address] Social History Tobacco UseTypesPacks/DayYears UsedDateSmoking Tobacco: FormerCigarettesQuit: 1990Smokeless Tobacco: NeverAlcohol UseStandard Drinks/WeekCommentsYes0 (1 standard drink = 0.6 oz pure alcohol)2-3 times per week, 1-2 drinks at a time B1300 Health LiteracyAnswerDate RecordedHow often do you need to have someone help you when you read instructions, pamphlets, or other written material from your doctor or pharmacy?Tjhmtr0312/12/2023Social Connection and Isolation Panel AnswerDate RecordedIn a typical week, how many times do you talk on the phone with family, friends, or neighbors?Never12/12/2023How often do you get together with friends or relatives?Never12/12/2023How often do you attend rastafari or congregation services?Never12/12/2023o you belong to any clubs or organizations such as rastafari groups, unions, fraternal or athletic groups, or school groups?No 12/12/2023How often do you attend meetings of the clubs or organizations you belong to?Never12/12/2023re you , , , , never , or living with a partner?Feibrsg5612/12/2023UDIT-CAnswerDate RecordedQ1: How often do you have a [...] hard at all12/12/2023HQ-2AnswerDate Recorded Patient Health Questionnaire-2 Ighca423[facility] [place] of Occupational Health - Occupational Stress QuestionnaireAnswerDate RecordedDo you feel stress - tense, restless, nervous, or anxious, or unable to sleep at night because your mind is troubled all the time - these days?To some lzeiet8412/12/2023Exercise Vital SignAnswerDate RecordedOn average, how many days [...] now)?No12/12/2023Sex and Gender InformationValueDate RecordedSex Assigned at PsomxYwwr24/27/2024 1:36 PM EDTLegal NwxWgzk1406/29/2022 11:50 PM EDTGender RxtwhgddMgdb68/27/2024 1:36 PM EDTSexual MpitoiwldoyThdnwcl13/27/2024 1:36 PM EDTdocumented as of this encounter Plan of Treatment Not on file documented as of this encounter Visit Diagnoses Not on filedocumented in this encounter Care Teams Team MemberRelationshipSpecialtyStart DateEnd Date Rusty Delgado MD [address] [facility] [address] [place] [address] PCP - Aetna04/17/22 Rusty Delgado MD [address] [facility] [address] [place] [address] PCP - GeneralInternal Medicine11/23/22documented as of this encounter
--- OUTSIDE RECORDS SUMMARY | 2025-03-24 07:09 | XMS_ITS | CCD ---
Author Organization [facility] Care Team Providers Care Hot Wort Settler Name Role Phone MD Lex Carorll Attending Provider JUDITH Robledo Primary Care Provider Rick Ortega Unavailable JUDITH Robledo Primary Care Provider TALA Ortega Attending Provider Sanjay Robledo MD Unavailable Sanjay Robledo MD Primary Care Provider MD Minh Griffith Attending Provider [phone] DO Brayan Alves Attending Provider JUDITH Robledo Primary Care Provider TALA Ortega Attending Provider MD Minh Griffith Attending Provider [phone] DO Brayan Alves Attending Provider SANJAY ROBLEDO Primary Care Physician Brayan Alves H Referring Unavailable Jourdan ARRIAZA Attending Unavailable JUDITH Robledo Primary Care Provider MD Ward Ferrer Attending Provider Maggy [facility], [facility] Shepard Attending Provider [facility] Shepard Attending Provider [facility], [facility] Shepard Attending Provider JUDITH Robledo Primary Care Provider MD Ward Ferrer Attending Provider MD Autumn Farnsworth V Attending Provider [phone] Elizabeth OLIVAS, Irena Unavailable Jade Arora MD Unavailable Venkat WONG MD, Daniel B Primary Care Provider Irena Johnson MD Attending Provider [phone] Sanjay Robledo II Primary Care Provider [...] RN Unavailable Unavailable Amos OLIVAS, Jonas Unavailable Albin Suarez DO Attending Provider [phone] Samsa - [facility], Devyn Admitting Unavailable Samsa [...] Unavailable JUNNA, DMITRI Referring Unavailable ROBLEDO II, SANAJY B Primary Care Unavailable CHERI GUIDO Referring Unavailable ROBLEDO II, SANJAY B Primary Care Unavailable Raymond Penaloza Admitting Unavailable Raymond Penaloza Attending Unavailable ROBLEDO II, SANJAY B Primary Care Unavailable CANDIDA DIAS Referring Unava ilable GERONIMO COCHRAN Admitting Unavailable BURTON QUEZADA Attending Unavailable ROBLEDO II, SANJAY B Primary Care Unavailable HANSA LOPEZ Attending Unavailable PAUL SNOWDEN Referring Unavailable BELIA MEDINA Admitting Unavailable ROLBEDO II, SANJAY B Primary Care Unavailable MORALES [...] Facility (12 sources)Sulfamethoxazole / Trimethoprim; Translations: [SULFAMETHOXAZOLE-TRIMETHOPRIM]Drug [id number] [facility] Work Phone: (3 sources)Dexmedetomidine; Translations: [DEXMEDETOMIDINE]Drug Allergy 18-02-2472[facility]irtnd[facility]qlbgv [facility] Work Phone: Medications Current Medications MedicationDrug Class(es)DatesSig (Normalized)Sig (Original)acyclovir 400 mg oral tablet (20 sources)Herpesvirus Nucleoside Analog DNA Polymerase Inhibitor, Herpes Simplex Virus Nucleoside Analog DNA Polymerase Inhibitor, Herpes Zoster Virus Nucleoside Analog DNA Polymerase InhibitorStart: 09-18-2024 End: 64-03-0959vuxo 1 tablet by mouth in the morningacyclovir (Zovirax) 400 MG tablet Take 400 mg by mouth in the morning and 400 mg in the evening. 11/12/2024 Activeaspirin 81 mg chewable tablet (20 sources)Platelet Aggregation Inhibitor, Nonsteroidal Anti-inflammatory Drug Start: 10-31-2024 End: 04-31-1843ltqcgwg 81 MG chewable tablet Chew 81 mg in the morning. 11/12/2024 Active End: 63-86-6526svib 1 tablet by mouth once dailyaspirin, enteric coated (ASPIRIN, ENTERIC COATED) 81 mg EC tablet Take 81 mg by mouth once daily. DiscontinuedB Complex Vitamins (vitamin B complex) tablet (20 sources)Start: 71-22-2232kvvm 1 tablet by mouth once dailyB Complex Vitamins (vitamin B complex) tablet Indications: Iron deficiency anemia, unspecified irondeficiency anemia type Take 1 tablet by mouth Daily 100 tablet 3 08/21/2024 Activebenzonatate 100 mg oral capsule (20 sources)Non-narcotic AntitussiveStart: 56-27-1280qncx 1 capsule by mouth every eight hours as neededbenzonatate (Tessalon) 100 MG capsule Take 100 mg by mouth every 8 (eight) hours if needed 10/30/2024 ActiveStart: 08-65-0639gskk 1 capsule by mouth every eight hours as neededbenzonatate (TESSALON PERLE) 100 mg capsule Take 1 capsule by mouth three times a day as needed forcough. 10/30/2024 Suspendedbumetanide 2 mg oral tablet (20 sources)Loop DiureticStart: 07-25-2024 End: 95-98-7067wzrw 1 tablet by mouth twice hr buprenorphine 0.01 mg/hr transdermal system (13 sources)Partial Opioid AgonistStart: 11-12-2024 End: 94-44-8706ytems 1 dose transdermal route every weekbuprenorphine (Butrans) 10 MCG/HR Place 1 patch on the skin once a week 11/12/2024 12/13/2024 Active calcium carbonate 1250 mg / cholecalciferol 125 unt oral tablet (20 sources)Vitamin DStart: 70-04-8538lkvj 1 tablet by mouth once dailyCalcium Carb-Cholecalciferol [...] mg oral tablet (8 sources)AnticholinergicStart: 11-10-2022 End: 84-39-6192xmll 1 tablet by mouth every eight hoursDicyclomine HCl 20 MG 1 tablet Orally Three times a day for 90 days Mar, Activefamotidine 20 mg oral tablet (20 sources)Histamine-2 Receptor AntagonistStart: 09-29-2024 End: 04-88-6117pckz 1 tablet by mouth in the morningfamotidine (Pepcid) 20 MG tablet Take 20 mg by mouth in the morning and 20 mg in the evening. 11/12/2024 ActiveStart: 04-12-2023 End: 45-67-0918wswl 1 tablet by mouth twice dailyFamotidine 40 mg tablet Discontinued 40 MG PO Twice daily 60 30 July 05, 2023 9:29am June 19, 2024 1:11pm FreeTextSi tablet Orally Twice a day; Note: Source Status: Taking; Refills: 5; Qty: 60 Tablet; Provider: Shannon Cabrera MStart: 11-10-2022 End: 78-12-2244dfly 1 tablet by mouth at bedtimefamotidine (Pepcid) 20 MG tablet Take 20 mg by mouth at bedtime. 0 11/10/2022 05/18/2023 Discontinuedfurosemide 40 mg oral tablet (20 sources)Loop DiureticStart: 90-91-1985uuix 1 tablet by mouth in the morning furosemide (Lasix) 40 MG tablet Take 40 mg by mouth in the morning. 10/31/2024 ActiveStart: 65-76-6944crua 1 tablet by mouth once dailyfurosemide (LASIX) 20 mg tablet Take 1 tablet by mouth once daily. 09/30/2024 SuspendedStart: 03-01-2024 End: 20-07-4954gfvj 3 tablets by mouth twice dailyfurosemide (LASIX) 20 mg tablet Take 60 mg by mouth two times a day. 03/01/2024 05/02/2024 Discontinued Start: 05-11-0565owrh 3 tablets by mouth once dailyfurosemide (LASIX) 20 mg tablet Take 60 mg by mouth once daily. 03/01/2024 ActiveStart: 04-12-2023 End: 79-34-9816unhv 1 tablet by mouth once daily in the morningFurosemide 40 mg tablet Discontinued 40 MG PO Every morning June 02, 2023 1:00am July 30, 2024 10:26am FreeTextSi tablet Orally Once a day; Note: Source Status: Taking; Refills: 11; Provider: Shannon Cabrera Mketorolac tromethamine 5 mg/ml ophthalmic solution (3 sources)Nonsteroidal Anti-inflammatory Drug, Cyclooxygenase InhibitorStart: 01-18-2024 End: 02-82-8323uevq 1 drop(s) into the eye(s) in the morningketorolac (Acular) 0.5 % ophthalmic solution Indications: Age-related nuclear cataract of both eyes Administer 1 drop into affected eye(s) in the morning and 1 drop before bedtime. 5 mL 1 01/18/2024 02/17/2024 Activelactulose 667 mg/ml oral solution (20 sources)Osmotic LaxativeStart: 12-28-2023 End: 88-21-0770kqul 10 g by mouth once dailylactulose (Enulose) 10 GM/15ML solution oral solution Take 10 g by mouth Daily 12/28/2023 Activelinaclotide 0.145 mg oral capsule (20 sources)Guanylate Cyclase-C AgonistStart: 48-36-3732ralk 1 capsule by mouth in the morninglinaCLOtide (Linzess) 145 MCG capsule Take 145 mcg by mouth in the morning. 11/12/2024 ActiveMagnesium (3 sources)Start: 33-65-4722Qkxmb: 87-47-6437Yoliyxtvs 200 mg tablet Active 500 MG PO Daily June 19, 2024 1:00ammagnesium hydroxide 80 mg/ml oral suspension (20 sources)Start: 61-31-2176hskq 30 mL by mouth every twenty-four hours as neededmagnesium hydroxide (Milk of Magnesia) 400 MG/5ML suspension Take 30 mL by mouth Daily as needed 11/15/2024 Activemeclizine hydrochloride 25 mg oral tablet (3 sources)AntiemeticStart: 12-13-2023 End: 89-97-7142lqad 1 tablet by mouth three times daily as needed for dizziness meclizine (Antivert) 25 MG tablet Indications: Dizziness Take 1 tablet (25 mg) by mouth 3 (three) times a day as needed for dizziness for up to 10 days 30 tablet 12/13/2023 12/23/2023 Activemelatonin 3 mg oral tablet (20 sources)Start: 20-57-5359dtcn 1 tablet by mouth at bedtimemelatonin 3 MG tablet Take 3 mg by mouth at bedtime 11/12/2024 Activemethocarbamol 750 mg oral tablet (20 sources)Muscle RelaxantStart: 09-01-3782foos 1 tablet by mouth three times daily as neededmethocarbamol (Robaxin) 750 MG tablet Take 750 mg by mouth 3 (three) times a day as needed 11/12/2024 ActiveStart: 36-60-4781vnwb 1 tablet by mouth twice daily in the morningmethocarbamol (ROBAXIN) 750 mg tablet Take 1 tablet by mouth two times a day. 60 tablet 1 11/15/2024 9:11 AM EDT 11/12/2024 SuspendedStart: 09-27-2024 End: 43-12-5261tgzp 1 tablet by mouth every eight hours as neededmethocarbamol (ROBAXIN) 500 mg tablet Take 1 tablet by mouth three times a day as needed (muscle spasm). 09/27/2024 11/12/2024 Discontinuedmidodrine hydrochloride 10 mg oral tablet (20 sources)alpha-Adrenergic AgonistStart: 59-06-6547izbfrjqvb (Proamatine) 10 MG tablet Take 10 mg by mouth in the morning and 10 mg at noon and 10 mg in the evening. 11/12/2024 ActiveStart: 45-05-8136levi 1 tablet by mouth every eight hoursmidodrine (PROAMITINE) 5 mg tablet Take 1 tablet by mouth every 8 hours. 09/27/2024 SuspendedMultiple Vitamins-Minerals (Multi For Him) tablet (20 sources)Multiple Vitamins-Minerals (Multi For Him) tablet Daily. Active Multiple Vitamins-Minerals (Multi For Him) tablet Daily. 0 ActiveMultivitamin (Daily Multi-Vitamin) tablet (11 sources)Start: 62-74-0292ycet 1 tablet by mouth once dailyStart: 06-02-2023 take 1 tablet by mouth once dailyMultivitamin (Daily Multi-Vitamin) tablet Active 1 TAB PO Daily June 02, 2023 1:00amStart: 44-13-7010kjpq 1 tablet by mouth once dailyMultivitamin (Daily Multi-Vitamin) tablet Active 1 TAB PO Daily June 02, 2023 12:00amofloxacin 3 mg/ml ophthalmic solution (2 sources)Quinolone AntimicrobialStart: 01-18-2024 End: 49-08-6881mocc 1 drop(s) into the eye(s) five times dailyofloxacin (Ocuflox) 0.3 % ophthalmic solution Indications: Age-related nuclear cataract of both eyes Administer 1 drop into the right eye 5 (five) times a day for 1 day Starting 1 day before surgery,continue after surgery as directed 5 mL 1 01/18/2024 01/19/2024 ActiveoxyCODONE hydrochloride 5 mg oral tablet (16 sources)Opioid AgonistStart: 11-15-2024 End: 65-57-3869srja 5-10 mg by mouth every six hours as neededoxyCODONE (Roxicodone) 5 MG immediate release tablet Take 5-10 mg by mouth every 6 (six) hours if needed 11/15/2024 11/24/2024 ActiveStart: 11-12-2024 End: 42-10-7151aerk 1 tablet by mouth twice daily in the morning for pain oxyCODONE IR (ROXICODONE) 5 mg immediate release tablet Indications: Compression fracture of cervical spine, non-traumatic, with delayed healing, subsequent encounter , Generalized abdominal pain Take 1 tablet by mouth two times a day for 14 days. FOR PAIN. 28 tablet 11/15/2024 9:11 AM EDT 11/12/2024 11/29/2024 SuspendedStart: 10-30-2024 End: 46-22-8724zsdr 1 tablet by mouth every six hours as neededoxyCODONE IR (ROXICODONE) 5 mg immediate release tablet Take 1 tablet by mouth every 6 hours as needed for up to 7 days. 0 10/30/2024 11/06/2024 ActiveStart: 09-27-2024 End: 70-56-8721wbbu 1 tablet by mouth every six hours as neededoxyCODONE IR (ROXICODONE) 5 mg immediate release tablet Take 1 tablet by mouth every 6 hours as needed for up to 7 days. 0 09/27/2024 10/04/2024 ActiveStart: 08-19-2024 End: 89-14-7493xwlc 1 capsule by mouth every six hours for painoxyCODONE (Oxy- IR) 5 MG immediate release capsule Indications: Other acute postprocedural pain Take1 capsule (5 mg) by mouth every 6 (six) hours if needed for severe pain for up to 5 days 20 kseqohc6508/19/2024 08/24/2024 Activepantoprazole 40 mg delayed release oral tablet (20 sources)Proton Pump InhibitorStart: 94-84-5632qfre 1 tablet by mouth in the morningpantoprazole (ProtoNix) 40 MG EC tablet Take 40 mg by mouth in the morning and 40 mg in the evening. Take before meals. 11/12/2024 ActiveStart: 09-27-2024 End: 01-05-9608ubib 1 tablet by mouth twice daily before mealtime, then take 4 tablets by mouth in the eveningpantoprazole DR (PROTONIX) 40 mg tablet Take 1 tablet by mouth two times a day before meals at 6 amand 4 pm. 09/27/2024 11/12/2024 Discontinuedpolyethylene glycol 3350 878379 mg / potassium chloride 2970 mg / sodium bicarbonate 6740 mg / sodium chloride 5860 mg / sodium sulfate 22544 mg powder for oral solution (1 source)Osmotic LaxativeStart: 08-12-2024 End: 45-20-5444fzj 3350-Electrolytes (GOLYTELY) 236-22.74-6.74 -5.86 gram suspension Indications: Encounter for screening colonoscopy Take 4,000 mL by mouth one time only for 1 dose. Refer to printed prep instructions from your provider. 4000 mL 08/12/2024 08/12/2024 ActiveprednisoLONE acetate 10 mg/ml ophthalmic suspension (2 sources)CorticosteroidStart: 01-18-2024 End: 67-38-4152egkgigllFHDX acetate (Pred-Forte) 1 % ophthalmic suspension Indications: Age-related nuclear cataract of both eyes Administer 1 drop into both eyes in the morning and 1 drop at noon and 1 drop in theevening and 1 drop before bedtime. Do all this for 14 days. 5 mL 1 01/18/2024 02/01/2024 Active rifAXIMin 550 mg oral tablet (20 sources)Rifamycin AntibacterialStart: 10-13-2023 End: 26-05-7501bfcb 1 tablet by mouth in the morningrifAXIMin (Xifaxan) 550 MG tablet Take 550 mg by mouth in the morning and 550 mg in the evening. 10/26/2023 Activetamsulosin hydrochloride 0.4 mg oral capsule (20 sources)alpha-Adrenergic BlockerStart: 91-36-8557qqgp 1 capsule by mouth every twenty-four hours at bedtimetamsulosin (Flomax) 0.4 MG 24 hr capsule Take 0.4 mg by mouth at bedtime 11/12/2024 ActiveStart: 71-45-3314xnxs 1 capsule by mouth once daily at bedtimetamsulosin (FLOMAX) 0.4 mg Take 1 capsule by mouth daily at bedtime. 30 capsule 2 11/15/2024 9:11 AM EDT 11/12/2024 SuspendedStart: 27-43-7247ipjo 1 capsule by mouth once daily at bedtimetamsulosin (FLOMAX) 0.4 mg Take 1 capsule by mouth daily at bedtime. 09/29/2024 Suspendedtorsemide 20 mg oral tablet (20 sources)Loop DiureticStart: 58-39-2147anzd 1 tablet by mouth once daily torsemide (Demadex) 20 MG tablet Take 20 mg by mouth Daily 04/29/2024 Active Start: 04-29-2024 End: 45-15-6165lwmi 3 tablets by mouth once dailytorsemide (DEMADEX) 20 mg tablet Take 3 tablets by mouth once daily. 270 tablet 04/29/2024 07/25/2024 Discontinued (Course of therapy completed)traZODone hydrochloride 50 mg oral tablet (20 sources)Serotonin Reuptake InhibitorStart: 09-27-2024 End: 57-77-9576gyxf 1 tablet by mouth at bedtimetraZODone (Desyrel) 50 MG tablet Take 50 mg by mouth at bedtime 11/12/2024 Activeursodiol 300 mg oral capsule (20 sources)Bile AcidStart: 10-30-2024 End: 65-34-2646flicpgzf (Actigall) 300 MG capsule Take 300 mg by mouth in the morning and 300 mg at noon and 300 mg in the evening. 11/12/2024 Active valGANciclovir 450 mg oral tablet (20 sources)Start: 22-19-8062flls 2 tablets by mouth in the morning valGANciclovir (Valcyte) 450 MG tablet Take 900 mg by mouth in the morning and 900 mg in the evening. Take with meals. 10/30/2024 Active Completed/Discontinued Medications MedicationDrug Class(es)DatesSig (Normalized)Sig (Original)acetaminophen 500 mg oral tablet (20 sources)Start: 09-18-2024 End: 52-35-4830sclm 1 tablet by mouth every six hours as neededacetaminophen (TYLENOL) 500 mg tablet Take 1 tablet by mouth every 6 hours as needed for pain. 60 tablet 09/18/2024 11/12/2024 Discontinuedacetaminophen 325 mg / oxyCODONE hydrochloride 5 mg oral tablet (10 sources)Opioid AgonistStart: 06-13-2023 End: 71-72-6062dkye 1 tablet by mouth every six hours as needed for pain Oxycodone-Acetaminophen (Percocet) 5-325 mg tablet Discontinued 1 TAB PO Q6H as needed for pain 11 11June 13, 2023 July 05, 2023 9:01am20 ml albumin human, alf 250 mg/ml injection (2 sources)Human Serum AlbuminStart: 07-05-2024 End: 47-30-214927 g, INTRAVENOUS, at 400 mL/hr, ONCE, 1 dose, On Mon07/05/24 at 1100, IntraprocedureStart: 05-01-2024 End: .5 g, INTRAVENOUS, at 400 mL/hr, ONCE, 1 dose, On Mon05/01/24 at 1230, Intraprocedureatropine sulfate 0.025 mg / diphenoxylate hydrochloride 2.5 mg oral tablet (20 sources)Anticholinergic, Cholinergic Muscarinic Antagonist, Antidiarrheal Start: 07-05-2023 End: 50-28-3631iusj 1 tablet by mouth three times dailyDiphenoxylate-Atropine 2.5-0.025 mg tablet Discontinued 1 TAB PO Three times daily July 05, 2023 12:00am June 19, 2024 1:12pmStart: 06-02-2023 End: 73-55-8757dndx 1 tablet by mouth three times daily as needed for diarrhea Diphenoxylate-Atropine 2.5-0.025 mg tablet Discontinued 1 TAB PO Three times daily as needed for diarrhea June 02, 2023 1:00am June 13, 2023 12:59pm FreeTextSi tablet as needed OrallyFour times a day; Note: Source Status: Taking; Refills: 11; Qty: 120 Tablet; Provider: Shannon Cabrera MStart: 50-56-0866ygrz 1 tablet by mouth every six hoursDiphenoxylate-Atropine [...] tablet (20 sources)gamma-Aminobutyric Acid-ergic AgonistStart: 07-05-2023 End: 81-19-8032bqsl 1 tablet by mouth once daily at bedtimeBaclofen 20 mg tablet Discontinued 20 MG PO Daily at bedtime July 05, 2023 12:00am June 1:11pmbaclofen (Lioresal) 20 MG tablet Take by mouth 3 (three) times a day PRN Activecalcium carbonate 500 mg chewable tablet (9 sources)Start: 10-27-5396wtgw 500 mg by mouth every eight hours as needed calcium carbonate (TUMS) 500 mg chew Take 1 tablet by mouth three times a day as needed. 09/27/20243482Qsadclneoicvgtot-njzduoztw-rpce 333-133-5 MG per tablet (1 source) End: 73-79-3062krmhzqi-magnesium-zinc 333-133-5 MG per tablet Take 1 tablet by mouth in the morning and 1 tablet at noon and 1 tablet in the evening. Take with meals. 0 05/18/2023 Discontinuedcarvedilol 3.125 mg oral tablet (20 sources)alpha-Adrenergic Connie, beta-Adrenergic BlockerStart: 12-27-2023 End: 17-83-5956nunz 1 tablet by mouth twice daily at mealtimeCarvedilol (Coreg) 3.125 mg tablet Discontinued 3.125 MG PO Twice daily June 19, 2024 1:00am July 30, 2024 10:27am must administer with a meal/foodStart: 11-27-2023 End: 98-51-4478qupc 1 tablet by mouth in the morningcarvedilol (Coreg) 3.125 MG tablet Take 3.125 mg by mouth in the morning and 3.125 mg in the evening. Take with meals. 11/27/2023 12/13/2023 Discontinued (Other)ciprofloxacin 500 mg oral tablet (9 sources)Quinolone AntimicrobialStart: 11-13-2024 End: 98-18-7511kjxf 1 tablet by mouth twice daily in the morningciprofloxacin HCl (CIPRO) 500 mg tablet Take 1 tablet by mouth two times a day for 5 days. 10 tablet 11/15/2024 9:11 AM EDT 11/13/2024 11/20/2024 ExpiredDAPTOmycin (CUBICIN) 700 mg/100 mL pgbk iv piggyback in NaCl 0.9% 100 mL (10 sources)Start: 10-30-2024 End: 33-92-3203qncm 700 mg intravenously every twenty-four hoursDAPTOmycin (CUBICIN) 700 mg/100 mL pgbk iv piggyback in NaCl 0.9% 100 mL Inject 100 mL intravenously every 24 hours for 14 days. 1400 mL 10/30/2024 11/13/2024 Start: 10-30-2024 End: 28-11-5376expk 700 mg intravenously every twenty-four hoursDAPTOmycin (CUBICIN) 700 mg/100 mL pgbk iv piggyback in NaCl 0.9% 100 mL Inject 100 mL intravenously every 24 hours for 14 days. 1400 mL 10/30/2024 11/13/2024 Active esomeprazole 40 mg delayed release oral capsule (20 sources)Proton Pump InhibitorStart: 06-02-2023 End: 97-78-7707Sttdqazcwdgf Magnesium 40 mg capsule,delayed release(DR/EC) Discontinued 40 MG PO Twice daily June 02, 2023 1:00am June 19, 2024 1:12pm FreeTextSi capsule 30 minutes before morning meal & 1 capsule in the evening Orally twice a day; Note: Source Status: Taking; Refills: 12; Provider: Shannon Cabrera MStart: 96-37-8360Bmqluhfrctzh Magnesium 40 MG 1 capsule 30 minutes before morning meal & 1 capsule in the evening Orally twice a day for 30 days Sep, Active1 ml heparin sodium, porcine 5000 unt/ml injection (20 sources)Unfractionated Heparin, Anti-coagulantStart: 23-12-8554mgwugc 1 mL by subcutaneous injection every twelve hoursheparin 5,000 unit/mL injection Inject 1 mL subcutaneously every 12 hours. 09/27/2024 Suspended hydroCHLOROthiazide 25 mg / triamterene 37.5 mg oral capsule (20 sources)Potassium-sparing Diuretic, Thiazide DiureticStart: 06-13-2023 End: 85-76-9202Ktlxzxcuyai-Hydrochlorothiazid 37.5-25 mg capsule Discontinued [facility] June 13, 2023 1:00am 2023 9:01amStart: 06-13-2023 End: 47-26-0395Rzociprwnws-Hydrochlorothiazid Discontinued [facility] June 13, 2023 1:00am July 05, 2023 9:01amStart: 67-98-4746nozp 1 capsule by mouth once daily in the morning as neededtriamterene-hydroCHLOROthiazide (Dyazide) 37.5-25 MG capsule TAKE 1 CAPSULE BY MOUTH EVERY MORNING NEEDED FOR LEG SWELLING 03/16/2023 ActiveStart: 09-19-2022 End: 83-45-2146Lifgwnjohku-Hydrochlorothiazid 37.5-25 mg capsule Discontinued 1 CAP PO As Directed September 19, 2022 12:00am June 02, 2023 11:15am End: 38-33-2635qqzk 1 tablet by mouth in the morningtriamterene- hydrochlorothiazide (Maxzide-25) 37.5-25 MG tablet Take 1 tablet by mouth in the morning. 0 05/18/2023 Discontinuedibuprofen 800 mg oral tablet (13 sources)Nonsteroidal Anti-inflammatory DrugStart: 06-02-2023 End: 36-26-6495ignt 1 tablet by mouth three times daily as needed for pain Ibuprofen 800 mg tablet Discontinued 800 MG PO Three times daily as needed for pain June 02, 2023 1:00am June 19, 2024 1:12pminsulin lispro 100 unt/ml injectable solution (9 sources)Insulin AnalogStart: 18-84-6759wvdpnzf lispro 100 unit/mL injection Inject 2 Units [...] with radiology test) (9 sources)Start: 11-12-2024 End: 24-56-6046xjcbwk 1 dose intravenously once, then inject 1 [...] link.1 each 11/12/2024 11/13/2024 ExpiredStart: 11-12-2024 End: 08-84-3949svplyj 1 dose intravenously once, then inject 1 [...] link.1 each 11/12/2024 11/13/2024 ActiveStart: 08-22-2024 End: 18-31-0414ggpjmc 1 dose intravenously once, then inject 1 [...] link.1 each 08/22/2024 08/23/2024 ActiveStart: 05-18-2024 End: 14-51-2297oi contrast (will be provided with radiology test) [...] 1 Each 05/18/2024 05/19/2024 ActiveStart: 05-18-2024 End: 95-56-0484iahxzg 1 dose intravenously once, then inject 1 [...] link.1 Each 05/18/2024 05/19/2024 ActiveStart: 04-23-2024 End: 85-06-2112pu contrast (will be provided with radiology test) [...] capsule (20 sources)Proton Pump InhibitorStart: 04-29-2024 End: 48-61-9085zrep 1 capsule by mouth once dailylansoprazole (PREVACID) 30 mg capsule Take 1 capsule by mouth once daily. 04/29/2024 09/18/2024 Discontinued Start: 79-26-8610embm 1 capsule by mouth twice dailylansoprazole (Prevacid SoluTab) 30 MG disintegrating tablet Take 15 mg by mouth in the morning. Take before meals. Dissolve on tongue before swallowing particles; do not chew, cut, break, or swallow whole.. Xredhh29 ml lidocaine hydrochloride 20 mg/ml injection (3 sources)Antiarrhythmic, Amide Local AnestheticStart: 07-05-2024 End: 45-31-3445SCHWTMMVYTG, X (OR/PROCEDURE) PRN, Starting on Mon07/05/24 at 0904, Until Mon07/05/24 at 0904, IntraprocedureStart: 05-31-2024 End: 35-62-9812UYEAETWTHJZ, X (OR/PROCEDURE) PRN, Starting on 05/31/24 at 0930, Until 06/01/24 at 0406, IntraprocedureStart: 05-01-2024 End: 16-38-3729EPBBVCXZSWT, X (OR/PROCEDURE) PRN, Starting on Mon05/01/24 at 1042, Until Mon05/01/24 at 1041, Intraprocedurelisinopril 20 mg oral tablet (20 sources)Angiotensin Converting Enzyme InhibitorStart: 03-31-2017 End: 47-79-2603uvkn 1 tablet by mouth once daily in the morningLisinopril 20 mg tablet Discontinued 20 MG PO Every morning September 19, 2022 12:00am June 19, 2024 1:11pmmagnesium oxide 400 mg oral tablet (20 sources)Start: 11-12-2024 End: 72-97-7353xtis 2 tablets by mouth three times dailymagnesium oxide (MAG-OX) 400 mg (241.3 mg magnesium) tablet Take 2 tablets by mouth three times a day. 9am, 3pm, 9pm 180 tablet 5 11/12/2024 11/13/2024 Discontinued (Course of therapy completed)Start: 09-27-2024 End: 07-91-7275oapw 1 tablet by mouth twice dailymagnesium oxide [...] oral tablet (20 sources)beta-Adrenergic BlockerStart: 09-19-2022 End: 37-10-4460mvni 1 tablet by mouth twice dailyMetoprolol Tartrate 25 mg tablet Discontinued 25 MG PO Twice daily September 19, 2022 12:00am June 02, 2023 11:11amStart: 03-31-2017 End: 93-69-2208bvsi 1 tablet by mouth once dailymetoprolol succinate ER (TOPROL XL) 50 mg 24 hr tablet Take 1 tablet by mouth once daily. 90 pwkoyr4803/31/2017 04/29/2024 DiscontinuedMetoprolol Tartrate Activemirtazapine 7.5 mg oral tablet (16 sources)Start: 78-78-1642zfbg 1 tablet by mouth once daily at bedtime Mirtazapine (REMERON) 7.5 mg tablet Take 1 tablet by mouth daily at bedtime. 30 tablet 2 59:11 AM EDT 11/12/2024 SuspendedStart: 10-30-2024 End: 17-49-1456mkct 1 tablet by mouth once daily at bedtimemirtazapine (REMERON) 15 mg tablet Take 1 tablet by mouth daily at bedtime. 90 tablet 10/30/2024 Discontinuedmultivitamin tablet (20 sources)Start: 53-21-2627lanu 1 tablet by mouth once dailymultivitamin tablet Take 1 tablet by mouth once daily. 30 tablet 11 11/12/2024 Suspended Start: 98-16-0679leig 1 tablet by mouth once dailymultivitamin tablet Take 1 tablet by mouth once daily. 30 tablet 11 11/12/2024 Active End: 05-26-3780rrfj 1 tablet by mouth once dailymultivitamin tablet Take 1 tablet by mouth once daily. 11/12/2024 Discontinuedtake 1 tablet by mouth once dailymultivitamin tablet Take 1 tablet by mouth once daily. Suspendedtake 1 tablet by mouth once dailymultivitamin tablet Take 1 tablet by mouth once daily. Activeomeprazole 40 mg delayed release oral capsule (20 sources)Proton Pump InhibitorStart: 09-21-2022 End: 41-55-0623esge 1 capsule by mouth twice dailyOmeprazole 40 mg capsule,delayed release(DR/EC) Discontinued 40 MG PO Twice daily 60 September 212:00am June 02, 2023 11:13amStart: 03-31-2017 End: 84-27-6089fxif 1 capsule by mouth once dailyOmeprazole 40 mg Capsule,Delayed Release(Dr/Ec) Discontinued 40 MG PO Daily September 19, 2022 12:00am September 21, 2022 8:23amondansetron 4 mg oral tablet (20 sources)Serotonin-3 Receptor AntagonistStart: 07-05-2023 End: 37-91-0675pzjc 1 tablet by mouth three times dailyOndansetron Hcl 4 mg tablet Discontinued 4 MG PO Three times daily 90 July 05, 2023 9:32am Jun 1:12pmStart: 07-05-2023 End: 62-21-2045illh 1 tablet by mouth once dailyOndansetron Hcl 4 mg tablet Discontinued 4 MG PO Daily July 05, 2023 12:00am July 05, 2023 9:32ampolyethylene glycol 3350 88719 mg powder for oral solution (17 sources)Osmotic LaxativeStart: 19-50-4542wekrfdikhosf glycol 3350 17 gram packet Take 1 packet by mouth once daily. Dissolve dose in 4 - 8 ounces of liquid and take as directed. 10/31/2024 Suspendedsimethicone 80 mg chewable tablet (9 sources)Start: 14-95-9735yoyv 1 tablet by mouth every six hours as needed simethicone, chewable (MYLICON) 80 mg chewable tablet Take 1 tablet by mouth four times a day as needed. 9am,12n, 6pm, 9pm 120 tablet 2 11/12/2024 Suspended spironolactone 100 mg oral tablet (20 sources)Aldosterone AntagonistStart: 05-04-2024 End: 04-26-0102bwkm 1.5 tablets by mouth once dailyspironolactone (ALDACTONE) 100 mg tablet Take 1.5 tablets by mouth once daily. 45 tablet 2 05/04/2024 09/18/2024 DiscontinuedStart: 50-84-7909futb 1 tablet by mouth once daily spironolactone (Aldactone) 50 MG tablet Take 50 mg by mouth Daily 04/29/2024 ActiveStart: 04-29-2024 End: 16-06-7185iyqg 2 tablets by mouth once dailyspironolactone (ALDACTONE) 100 mg tablet Take 2 tablets by mouth once daily. 180 tablet 04/29/2024 05/04/2024 DiscontinuedStart: 03-01-2024 End: 26-32-5050ztyj 3 tablets by mouth once dailyspironolactone (ALDACTONE) 50 mg tablet Take 150 mg by mouth once daily. 03/01/2024 05/04/2024 Discontinued Start: 86-18-4735hzxp 1 tablet by mouth once dailyspironolactone (Aldactone) 100 MG tablet TAKE 1 TABLET BY MOUTH EVERY DAY FOR 30 DAYS 05/10/2023 Active sulfamethoxazole 800 mg / trimethoprim 160 mg oral tablet (20 sources)Dihydrofolate Reductase Inhibitor Antibacterial, Sulfonamide AntimicrobialStart: 09-20-2024 End: 11-74-7097jkux 1 tablet by mouth oncesulfamethoxazole-trimethoprim (BACTRIM DS) 800-160 mg per tablet Take 1 tablet by mouth every Monday, Monday, and Monday. 15 tablet 2 09/20/2024 11/12/2024 Discontinuedtacrolimus 5 mg oral capsule (20 sources)Calcineurin Inhibitor ImmunosuppressantStart: 10-30-2024 End: 98-70-5341qoic 1 capsule by mouth twice dailytacrolimus IR (PROGRAF) 5 mg capsule Take 1 capsule by mouth two times a day. 10/30/2024 11/12/2024 DiscontinuedStart: 76-63-1478mdxo 1 capsule by mouth twice dailytacrolimus IR (PROGRAF) 1 mg capsule Take 4 capsules by mouth two times a day. 09/29/2024 Suspendedzolpidem tartrate 10 mg oral tablet (11 sources)gamma-Aminobutyric Acid-ergic AgonistStart: 02-13-2017 End: 17-27-0719rncd 5 mg by mouth every twenty-four hours as neededzolpidem (AMBIEN) 10 mg tab Take 0.5 tablets by mouth at bedtime as needed. 30 tablet 02/13/2017 04/29/2024 Discontinued Problems Active Problems Problem ClassificationProblemDateDocumented DateEpisodic/ChronicAbdominal pain (4 sources)Lower abdominal pain, unspecified; Translations: [Generalized abdominal pain]Onset: 41-32-0139KswkcqtdBvsfbbe-related disorders (20 sources)Alcoholic cirrhosis; Translations: [Alcoholic cirrhosis of liver with ascites]Onset: 913092-10-7743VtbutjxBqsolm; peripheral; and visceral artery aneurysms (20 sources)Aortic root dilatation; Translations: [Thoracic aortic ectasia] Onset: 549234-38-9123JmybfflXakashm tract disease (4 sources)Stricture of bile duct; Translations: [Obstruction of bile duct] Onset: 678758-01-2341CcpixfmVkrauw of liver and intrahepatic bile duct (20 sources)Liver cell carcinoma; Translations: [Liver cell carcinoma]Onset: 067267-10-5408EwpcblnPlgnnfv dysrhythmias (20 sources)Multiple premature ventricular complexes; Translations: [Ventricular premature depolarization]Onset: 885232-41-0180AzthkpkLtcsppnz (20 sources)Nuclear senile cataract; Translations: [Age-related nuclear cataract, bilateral]Onset: 922778-93-9197JfetfudHrgadhu kidney disease (20 sources)Chronic kidney disease stage 3A ; Translations: [Stage 3a chronic kidney disease]Onset: 600818-18-4549LrgkbcyBlrqusibtet and hemorrhagic disorders (20 sources)Thrombocytopenic disorder; Translations: [Thrombocytopenia, unspecified]Onset: 987394-37-9646NafxqncMpvixosnjhymj of surgical procedures or medical care (20 sources)Pulmonary insufficiency following surgery; Translations: [Other postprocedural complications and disorders of respiratory system, not elsewhere classified]Onset: 09-09-2024 Resolved: 323583-45-6533CkbpptrePpqnfjawpp disorders (1 source)Unspecified atrioventricular block; Translations: [AV block]Onset: 99-68-8186GwwactlUxjknsrl atherosclerosis and other heart disease (1 source)Coronary arteriosclerosis; Translations: [Atherosclerotic heart disease of [place] coronary artery without angina pectoris]34-13-8852Dheoxvh Diabetes mellitus with complications (20 sources)Hyperglycemia due to type 2 diabetes mellitus; Translations: [Type 2 diabetes mellitus with hyperglycemia]Onset: 487913-30-5227PdslrhkTrnbjpah mellitus without complication (20 sources)Type 2 diabetes mellitus without complication; Translations: [Type 2 diabetes mellitus without complications]Onset: 11-17-2022 Resolved: 136284-69-0463NkqcortKrlmpdyp of white blood cells (1 source)Leukopenia; Translations: [Decreased white blood cell count, unspecified]Onset: 044186-19-5494XmojelaDhwtgoost of lipid metabolism (20 sources)Dyslipidemia; Translations: [Hyperlipidemia, unspecified]Onset: 791825-22-5018FvoecwtQzfpmuxgss disorders (20 sources)Recinos's esophagus; 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]Onset: 35-87-0912RryqmmoSfwaxicfb hypertension (20 sources)Benign essential hypertension; Translations: [Essential (primary) hypertension]Onset: 11-26-2012 Resolved: 760585-66-0080MzadtqrSoqj and other crystal arthropathies (20 sources)Primary gout; Translations: [Idiopathic gout, unspecified site] Onset: 762720-52-2731ItylzzgBngycssbg (20 sources)Nonalcoholic steatohepatitis; Translations: [Nonalcoholic steatohepatitis ([place])]Onset: 327749-46-5640YnwkkrqDypttujt disorders (20 sources)Immunosuppression; Translations: [Immunodeficiency, unspecified] Onset: 813781-39-0994ZahblcjOyymqwmuzvh deficiencies (20 sources)Deficiency of macronutrients; Translations: [Unspecified severe protein-calorie malnutrition]Onset: 357831-02-8601TqvhohaErlsgsqneqyp (20 sources)Osteoporosis; Translations: [Age-related osteoporosis without current pathological fracture]Onset: 128374-52-8085ZrxeqpkCqkak circulatory disease (1 source)Low blood pressure; Translations: [Hypotension, unspecified]Onset: 816386-89-1119NrltiatpEaqbn disorders of stomach and duodenum (10 sources)Disorder of function of stomach; Translations: [Disease of stomach and duodenum, unspecified]55-39-1992ThylwewnHuymd disorders of stomach and duodenum (1 source)Disease of stomach and duodenum, unspecified; Translations: [Dyspepsia and other specified disorders of function of stomach]94-59-4361EnagyqaiWueby eye disorders (20 sources)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; 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, left eye]Onset: 362235-80-7604ZzvkaivRdbrv fractures (4 sources)Compression fracture of cervical spine; Translations: [Collapsed vertebra, not elsewhere classified, cervical region, subsequent encounter for fracture with delayed healing]68-73-0135ZzizirmaMkpix gastrointestinal disorders (9 sources)H/O: gastrointestinal disease; Translations: [Personal history of other diseases of the digestive system]EpisodicOther gastrointestinal disorders (6 sources)Flatulence, eructation and gas pain; Translations: [Abdominal distension (gaseous)]EpisodicOther gastrointestinal disorders (6 sources)Loose stool; Translations: [Other fecal abnormalities]EpisodicOther gastrointestinal disorders (1 source)Abdominal distension (gaseous)EpisodicOther gastrointestinal disorders (3 sources)Other ascites; Translations: [Other ascites]Onset: 12-53-8102Axudlmbu Other gastrointestinal disorders (7 sources)Intra-abdominal collection; Translations: [Other ascites]Onset: 05-01-2024 Resolved: 883095-26-5487JkamnuhzVmlyj gastrointestinal disorders (1 source)Dysphagia; Translations: [Dysphagia, unspecified]Onset: 12-26-2024 56-28-8330CovhcnbjKiyxb liver diseases (20 sources)Steatosis of liver; Translations: [Fatty (change of) liver, not elsewhere classified]Onset: 710847-68-3414AhwbobcDzuig liver diseases (2 sources)Fatty (change of) liver, not elsewhere classified; Translations: [Metabolic dysfunction-associated steatotic liver disease (MASLD)]Onset: 17-80-9713BembdupYmjfv liver diseases (20 sources)Cirrhosis of liver; Translations: [Unspecified cirrhosis of liver] Onset: 623630-33-4414UwoalmwZcsyi liver diseases (9 sources)Unspecified cirrhosis of liver; Translations: [Cirrhosis of liver without mention of alcohol]Onset: 32-85-3834GlqhdyyYbgdd liver diseases (10 sources)Pleural effusion associated with hepatic disorder; Translations: [Liver disease, unspecified]89-92-9099NpykjjaXdlew liver diseases (10 sources)Lesion of liver; Translations: [Liver disease, unspecified] 39-45-6313FomeypwSvzza liver diseases (20 sources)Portal hypertension; Translations: [Portal hypertension]Onset: 349681-77-6639NgqhmxmQxbtq liver diseases (4 sources)Liver disease, unspecified; Translations: [Liver disease, unspecified]Onset: 28-06-7177IhnecdgMsyxq liver diseases (1 source)Portal snrcofmnx06-75-0061RxqegryMncxx liver diseases (1 source)Liver transplant status; Translations: [Status post liver transplant (HCC)]Onset: 31-60-3158WimddcbYwsxu liver diseases (1 source)Liver mass; Translations: [Hepatomegaly, not elsewhere classified] 06-31-6166IxhtzcmfDjhqi lower respiratory disease (20 sources)Dyspnea; Translations: [Shortness of breath]Onset: 03-08-2024 83-27-5242IiygkpswJodrb nervous system disorders (20 sources)Critical illness myopathy; 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] Onset: 421751-52-4091QerjtluBliof nervous system disorders (5 sources)Disorder of brain; Translations: [Encephalopathy, unspecified]Onset: 128548-55-5391NkdmopqWhsta nervous system disorders (2 sources)Acute postoperative pain; Translations: [Other acute postprocedural pain]80-64-0319ZeekfkaiMkpjs nutritional; endocrine; and metabolic disorders (20 sources)Metabolic syndrome X; Translations: [Metabolic syndrome]Onset: 064346-64-7914JmomcgqEjksk nutritional; endocrine; and metabolic disorders (20 sources)Obese class I; Translations: [Class 1 obesity]Onset: 07-26-2018 32-46-1164WmlmdjqBtwey screening for suspected conditions (not mental disorders or infectious disease) (3 sources)Abnormal radionuclide gqbe90-27-5474GbwbnidUcgor skin disorders (1 source)Eruption; Translations: [Rash and other nonspecific skin eruption] Onset: 570107-25-8672PrwfukdvNftuubnjd (1 source)Cauda equina syndrome; Translations: [Cauda equina syndrome]Onset: 073948-43-8077NqgdgmzNzzobekx; pneumothorax; pulmonary collapse (20 sources)Pleural effusion; Translations: [Pleural effusion, not elsewhere classified]Onset: 463990-22-2173LjwiofyiPsvocvcx codes; unclassified (20 sources)Awaiting transplantation of liver; Translations: [Awaiting organ transplant status]61-11-3193YwfyxtyPbawxjxc codes; unclassified (1 source)Awaiting transplantation; Translations: [Awaiting organ transplant status]00-36-0436SzdbaiaHxxjayue codes; unclassified (1 source)Awaiting organ transplant status; Translations: [Liver transplant candidate]Onset: 74-95-8055PzorujqOpgnzztd codes; unclassified (6 sources)Edema; Translations: [Localized edema]EpisodicResidual codes; unclassified (6 sources)Early satiety; Translations: [Early satiety]EpisodicResidual codes; unclassified (1 source)Localized edemaEpisodicResidual codes; unclassified (2 sources)Early satietyEpisodicResidual codes; unclassified (4 sources)Altered mental status; Translations: [Altered mental status, unspecified]Onset: 733473-36-3256AycwduvzKopvyjfanbq failure; insufficiency; arrest (adult) (1 source)Dependence on ventilator; Translations: [Dependence on respirator [ventilator] status]Onset: 252732-56-3925IowomntDrpxeva detachments; defects; vascular occlusion; and retinopathy (20 sources)Epiretinal membrane; 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, bilateral] Onset: 632513-68-5931TcjkdafTksasupos malignancies (1 source)Secondary malignant neoplasm of bone; Translations: [Secondary malignant neoplasm of bone and bone marrow]09-99-4239MdgrxneXswtdchwf malignancies (2 sources)Secondary malignant neoplastic disease; Translations: [Secondary malignant neoplasm of unspecified site]09-42-8952PpsjupmMybqdysoiogj (1 source)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)07-07-2024 Unclassified (18 sources)Colonoscopy Care CompanionOnset: 326376-08-9324Wwjppbeumtvj (1 source)Low back pain, unspecified back pain laterality, unspecified chronicity, unspecified whether sciatica present; Translations: [Low back pain, unspecified back pain laterality, unspecified chronicity, unspecified whether sciatica present]Onset: 06-08-2024 Past or Other Problems Problem ClassificationProblemDateDocumented DateEpisodic/ChronicAbdominal hernia (20 sources)Incisional hernia; Translations: [Incisional hernia without obstruction or gangrene]Onset: 414065-79-3933ZsfrmgsmTdoer and unspecified renal failure (20 sources)Acute kidney failure, unspecified; Translations: [Acute renal failure syndrome]Onset: 12-27-2023 Resolved: 12-25-1755OeoahzvaLewdl posthemorrhagic anemia (20 sources)Acute posthemorrhagic anemia; Translations: [Acute posthemorrhagic anemia]Onset: 184093-85-9245XjuyluovFrwxoullrqrjki/social admission (20 sources)Drug therapy finding; Translations: [Other specified counseling] Onset: 787356-27-8897ErulfaeaFzil and rectal conditions (20 sources)Anal fissure; Translations: [Anal fissure, unspecified]Onset: 217572-37-2922AzewwfuiTwzrpvimzr pneumonitis; food/vomitus (1 source)Aspiration pneumonia due to regurgitated gastric secretions; Translations: [Pneumonitis due to inhalation of food and vomit]Onset: 12-17-2024 Resolved: 057212-61-2909XvzrfzakKfirmjxmp infection; unspecified site (20 sources)Infection due to vancomycin resistant enterococcus; Translations: [Streptococcal infection, unspecified site]Onset: 10-20-2024 Resolved: 140758-53-4120MbaaprqcFfdnhlx tract disease (1 source)Calculus of bile duct without cholangitis or cholecystitis without obstruction; Translations: [Biliary stone of transplanted liver (HCC)]Onset: 80-32-6259WxjftqikMpleghr dysrhythmias (2 sources)Sinus bradycardia; Translations: [Bradycardia, unspecified]Onset: 12-11-2024 Resolved: 389388-82-2008IfjrwlguJaaznxtyfxdc of device; implant or graft (20 sources)Complication of transplanted liver; Translations: [Unspecified complication of liver transplant]Onset: 784436-54-5099MqafqjmqEhoidcciyv associated with dizziness or vertigo (20 sources)Dizziness; Translations: [Dizziness and giddiness]Onset: 11-06-2018 24-69-9935UhrynjzaSchuzlhvce and other anemia (20 sources)Anemia due to multiple mechanisms; Translations: [Other specified anemias]Onset: 852012-56-9414LecvxgzhVqcorchv mellitus without complication (20 sources)Steroid-induced hyperglycemia; Translations: [Hyperglycemia, unspecified]Onset: 039049-68-1409AtlhovxgHpltg and electrolyte disorders (20 sources)Hypo-osmolality and hyponatremia; Translations: [Hyponatremia]Onset: 03-08-2024 Resolved: 13-12-0618JtmgxwciAdhrhiraqix (20 sources)Internal hemorrhoids grade II; Translations: [Second degree hemorrhoids]Onset: 950013-52-6876GhxjktztHosofpvbkvhzq and screening for infectious disease (2 sources)Vaccination needed; Translations: [Encounter for immunization]Onset: 241033-51-0361UzhahptiQcrryzdfhm obstruction without hernia (20 sources)Intestinal obstruction co-occurrent and due to decreased peristalsis; Translations: [Ileus, unspecified]Onset: EpisodicMalaise and fatigue (20 sources)Physical deconditioning; Translations: [Other malaise]Onset: 080923-19-8354IzpdhycpOnflaj and vomiting (20 sources)Nausea; Translations: [Nausea]Onset: 43-41-4737MtgmfroiMdfsg aftercare (20 sources)Insulin dose changed; Translations: [longterm (current) use of insulin]Onset: 561017-29-9609MphuppwvGhvvo and unspecified benign neoplasm (20 sources)History of polyp of colon; Translations: [Personal history of colonic polyps]Onset: 171658-29-7049XemlykftEnaow and unspecified benign neoplasm (20 sources)Polyp of colon; Translations: [Polyp of colon]Onset: 08-31-2024 18-99-0015NefpfvrmMvzqk connective tissue disease (20 sources)Muscle pain; Translations: [Myalgia, unspecified site]Onset: 294089-35-8158GpovnnbsVoohy connective tissue disease (20 sources)Olecranon bursitis; Translations: [Olecranon bursitis, unspecified elbow]Onset: 569694-22-4510SfrnlaygRtlho fractures (3 sources)Compression fracture of thoracic spine; Translations: [Wedge compression fracture of T11-T12 vertebra, initial encounter for closed fracture] Onset: 11-30-2024 Resolved: 923562-64-7932CnqstwsvYmymc fractures (1 source)Stable burst fracture of T11-T12 vertebra, initial encounter for closed fracture; Translations: [T12 burst fracture (HCC)]Onset: 11-22-2024 EpisodicOther gastrointestinal disorders (3 sources)Diarrhea, unspecified; Translations: [Diarrhea, unspecified]Onset: 76-05-5562CfbybxsuQbehe gastrointestinal disorders (20 sources)Ascites; Translations: [Other ascites]Onset: EpisodicOther gastrointestinal disorders (2 sources)Swollen abdomen; Translations: [Abdominal distension (gaseous)] 93-03-6994AofolpgiOabfn gastrointestinal disorders (20 sources)Diarrhea; Translations: [Diarrhea, unspecified]Onset: 10-08-2024 Resolved: 070144-31-4575LstvesndSegll gastrointestinal disorders (3 sources)Fecal incontinence with fecal urgency; Translations: [Full incontinence of feces]Onset: 11-27-2024 Resolved: 951256-84-3734PpbmstlsKqmew injuries and conditions due to external causes (3 sources)History of fall; Translations: [History of falling]Onset: 11-28-2024 Resolved: 163314-83-2344VfduvuycSwuhp injuries and conditions due to external causes (3 sources)At risk for falls ; Translations: [History of falling]Onset: 11-28-2024 Resolved: 214195-88-8046MqfwlnxjJewvq liver diseases (20 sources)Hepatic encephalopathy; Translations: [Hepatic encephalopathy (HCC)] Onset: 763396-12-8882RnuwrxkcEozvu liver diseases (20 sources)Decompensated cirrhosis of liver; Translations: [Hepatic failure, unspecified without coma]Onset: 071037-79-1353FgswhnptWvntd liver diseases (1 source)Hepatic failure, unspecified without coma; Translations: [Decompensated cirrhosis (HCC)]Onset: 51-35-3405OmeuyuiaAoxoc lower respiratory disease (20 sources)Dyspnea on exertion; Translations: [Other forms of dyspnea]Onset: 883708-74-2806IqifeykxWuvbt lower respiratory disease (2 sources)Shortness of breath; Translations: [Shortness of breath]Onset: 74-80-1220TznfrnuwZnhdn lower respiratory disease (2 sources)Other forms of dyspnea; Translations: [Other forms of dyspnea]Onset: 62-99-7278DzjlohnoCzskx lower respiratory disease (20 sources)Chest pain on breathing; Translations: [Chest pain on breathing] Onset: 10-15-2024 Resolved: 735425-82-8685QjmygrgxCtxke lower respiratory disease (1 source)Dyspnea, unspecified; Translations: [Dyspnea, unspecified type]Onset: 62-65-5319CagdskbjQvhql nervous system disorders (20 sources)Postoperative pain ; Translations: [Other acute postprocedural pain] Onset: 09-10-2024 Resolved: 603664-87-6102WijmraoeAeglr non-epithelial cancer of skin (20 sources)Basal cell carcinoma of skin; Translations: [Basal cell carcinoma of skin, unspecified]Onset: 949508-89-6534YurchhpwAbrfp nutritional; endocrine; and metabolic disorders (20 sources)Abnormal weight loss; Translations: [Abnormal weight loss]Onset: 972447-94-6652TtmhpnmfNwlcv screening for suspected conditions (not mental disorders or infectious disease) (8 sources)Patient encounter status; Translations: [Encounter for screening for malignant neoplasm of prostate]Onset: 710997-59-0130TrqpjhqyIndpy upper respiratory disease (1 source)Other diseases of bronchus, not elsewhere classified; Translations: [Bronchiolar disease]Onset: 64-87-0647DnfubtnlYlqiksphjdnh fracture (4 sources)Pathological fracture; Translations: [Pathological fracture, other site, initial encounter for fracture]Onset: 732091-02-6890KonuppekQnxkoqoi codes; unclassified (20 sources)Insomnia; Translations: [Insomnia, unspecified]Onset: 11-17-2022 63-73-0932WtzcrkjzNbiyyiqc codes; unclassified (20 sources)Transient alteration of awareness; Translations: [Transient alteration of awareness]Onset: 683168-57-3059RugwgfkxOxxmfpjz codes; unclassified (20 sources)H/O: endocrine disorder; Translations: [Personal history of other specified conditions]Onset: 447639-50-7549YyfrmkdmKgxsanmhohs failure; insufficiency; arrest (adult) (3 sources)Acute respiratory failure; Translations: [Acute respiratory failure with hypoxia]Onset: 11-22-2024 Resolved: 632557-78-0651WgnwhgrlEqkesdoei and history of mental health and substance abuse codes (20 sources)Tobacco use and exposure - finding; Translations: [Personal history of nicotine dependence]Onset: 743781-19-0408HsyhpkvdUktpdlbxlke; intervertebral disc disorders; other back problems (20 sources)Low back pain; Translations: [Low back pain, unspecified back pain laterality, unspecified chronicity, unspecified whether sciatica present]Onset: 079939-04-5591QechxajjRwltbhjlwseg (1 source)Patient encounter harrmv05-30-9057Aghmkqsopnsx (1 source)Awaiting transplantation of xlcve96-84-4688Ilarc infection (20 sources)Cytomegalovirus infection; Translations: [Cytomegaloviral disease, unspecified]Onset: 103949-21-0752Qtkglnzt Results Test NameValueInterpretationReference RangeFacilityCNPNon 01-67-3244DRPWPznqvs [facility] CenterCNPNon 21-21-2542MUSJAmreblJphuynadz Clinic [place] CNPTOUTREACHon 92-05-4276ALREUMWGWDJOVpdhsdVkbcvdnic Clinic ClevelandCNPNon 28-36-7593GKUGTeqjvpHlvbwgeka Clinic ClevelandAFP SerPl-mCncon 52-87-2738NMJ [Mass/Vol]1.38 ng/mLNormal<9.00[facility] Vincent Medical CenterComment on above:Order Comment: Specimen Type: BLOOD SPECIMENOrdering Facility: [facility] Address:[address] [place], [place] [address]Result Comment: The Alpha-Fetoprotein test was performed using the [employer] DxI immunoenzymati c assay. Results obtained with different assay methods or kits cannot be used interchangeably.Performed By: #### [id number] ####[facility] [facility] LABCLIA [id number] [address] STATES OF AMERICAANES POSTPROC EVALon 86-61-8376MCQK POSTPROC EVALNormalClevelCarteret Health CareANES PRE-OPon 13-06-2536UHWI PRE-OPNormalMercy Health St. Vincent Medical CenterCNCOon 02-10-2025 CNCOLetter TextNormalCTuscarawas HospitalComprehensive metabolic 2000 panelon 85-03-4030Glhzuuj [Mass/Vol]3.3 g/dLLow3.9-4.9CTuscarawas Hospital Comment on above:Order Comment: Specimen Type: BLOOD SPECIMENOrdering Facility: [facility] Address:[address] [place] [address] Performed By: #### 93918-9 ####[facility] LABCLIA [id number] [place] [address] [place] AMERICAALP [Catalytic activity/Vol]168 U/YJelz89-469NsoulkkaiAvita Health System [facility] on above:Order Comment: Specimen Type: BLOOD SPECIMENOrdering Facility: [facility] Address:[address] [place], [place] [address]Performed By: #### 45080- 8 ####[facility] LABCLIA [id number] [place] [id number] [place] AMERICAALT [Catalytic activity/Vol]23 U/MMhalrs47-24 [facility] on above:Order Comment: Specimen Type: BLOOD SPECIMENOrdering Facility: [facility] Address:[address] [place], [place] [address]Performed By: #### 52707-5 ####[facility] LABCLIA [id number] [place] [id number] [place] OF AMERICAAnion gap [Moles/Vol]12 mmol/LNormal8-15[facility] on above:Order Comment: Specimen Type: BLOOD SPECIMENOrdering Facility: [facility] Address:[address] [place], [place] [address]Performed By: #### 55632- 8 ####[facility] LABCLIA [id number] [place] [id number] [place] OF AMERICAAST [Catalytic activity/Vol]25 U/VOwdivq91-82 [facility] on above:Order Comment: Specimen Type: BLOOD SPECIMENOrdering Facility: [facility] Address:[address] [place], [place] [address]Performed By: #### 38472-0 ####[facility] LABCLIA [id number] [place] [address] [place] AMERICABilirubin [Mass/Vol]0.3 mg/dLNormal0.2-1.3CTr[facility] on above:Order Comment: Specimen Type: BLOOD SPECIMENOrdering Facility: [facility] Address:[address] [place], [place] [address]Performed By: #### 69107- 8 ####[facility] LABCLIA [id number] [place] [address] [place] AMERICACalcium [Mass/Vol]9.5 mg/dLNormal8.5-10.2CTr[facility] on above:Order Comment: Specimen Type: BLOOD SPECIMENOrdering Facility: [facility] Address:[address] [place], [place] [address]Performed By: #### 21070-7 ####[facility] LABCLIA [id number] [place] [address] [place] AMERICAChloride [Moles/Vol]99 mmol/FVbsljs12-366TiyfewcdsAvita Health System [facility] on above:Order Comment: Specimen Type: BLOOD SPECIMENOrdering Facility: [facility] Address:[address] [place], [place] [address]Performed By: #### 26190- 8 ####[facility] LABCLIA [id number] [place] [address] [place] AMERICACO2 [Moles/Vol]24 mmol/DEykvdh12-49CsyferrphAvita Health System [facility] on above:Order Comment: Specimen Type: BLOOD SPECIMENOrdering Facility: [facility] Address:[address] [place], [place] [address]Performed By: #### 68731-9 ####[facility] LABCLIA [id number] [place] [id number] [place] Creatinine [Mass/Vol]0.96 mg/dLNormal0.73-1.22[facility] on above:Order Comment: Specimen Type: BLOOD SPECIMENOrdering Facility: [facility] Address:[address] [place] [address] Performed By: #### 04957-3 ####[facility] LABCLIA [id number] [place] [address] [place] OF AMERICAeGFRcr SerPlBld CKD-EPI 634319 mL/min/1.73m???Normal>=60[facility] on above:Order Comment: Specimen Type: BLOOD SPECIMENOrdering Facility: [facility] Address:[address] [place], [place] [address]Result Comment: Estimated Glomerular Filtration Rate (eGFR) is [...] not accurately reflect actual GFR.Performed By: #### 68852-1 ####[facility] LABCLIA [id number] [place] [address] [place] AMERICAGlucose [Mass/Vol]125 mg/fMJyeq34-71PwxwnnrbgAvita Health System [facility] on above:Order Comment: Specimen Type: BLOOD SPECIMENOrdering Facility: [facility] Address:[address] [place], [place] [address]Result Comment: The [place] Diabetes Association (ADA) provides guidance for cutoff [...] Standards of Medical Care in Diabetes 2016, [place] [employer]. Diabetes Care. 2016.39(Suppl 1).Performed By: #### 38376-5 ####[facility] LABCLIA [id number] [place] [address] [place] AMERICAPotassium [Moles/Vol]6.0 mmol/LHigh3.7-5.1 [facility] on above:Order Comment: Specimen Type: BLOOD SPECIMENOrdering Facility: [facility] Address:[address] [place], [place] [address]Performed By: #### 84942-0 ####[facility] LABCLIA [id number] [place] [address] [place] AMERICAProtein [Mass/Vol]7.0 g/dLNormal6.3-8.0[facility] on above:Order Comment: Specimen Type: BLOOD SPECIMENOrdering Facility: [facility] Address:[address] [place], [place] [address]Performed By: #### 45768- 8 ####[facility] LABCLIA [id number] [place] [address] [place] AMERICASodium [Moles/Vol]135 mmol/ZWhc339-595QiyqgxwvmAvita Health System [facility] on above:Order Comment: Specimen Type: BLOOD SPECIMENOrdering Facility: [facility] Address:[address] [place], [place] [address]Performed By: #### 93665-8 ####[facility] LABCLIA [id number] [place] [id number] [place] AMERICAUrea nitrogen [Mass/Vol]36 mg/dLHigh9-24[facility] on above: Order Comment: Specimen Type: BLOOD SPECIMENOrdering Facility: [facility] Address:[address] [place], [place] [address]Performed By: #### 32920- 8 ####[facility] LABCLIA [id number] [place] [id number] [place] OF AMERICAERCPon 12-59-0678EKTAYfpnzuSczrgkext Clinic ClevelandHISLAKE [facility] PHYSICALon 81-79-7124FJIYBTI PHYSICALNoSelect Medical Specialty Hospital - Columbus SouthNURSING PROGon 91-99-6048ZZBBQZZ PROGNormalMercy Health St. Vincent Medical CenterPT panel Coag (PPP)on 38-37-3923DGX Coag (PPP) [Relative time]1.0 {INR}Normal 0.9-1.3CTrinity [facility] on above:Order Comment: Specimen Type: BLOOD SPECIMENOrdering Facility: [facility] Address:[address] [place], [place] [address]Result Comment: Vitamin K Antagonist (VKA) Therapeutic Range: INR 2 to 3 (Target INR of 2.5)Note: For patients treated with VKA drugs, such as warfarin, the [place] [employer] 2012 Guideline recommends [...] al. Chest 2012, 141:7S-47SNishimura RA, et al. [facility] 2017, 70: 252-289Performed By: #### 19853-4 ####[facility] LABCLIA [id number] [place] [id number] [place] OF [facility]ORE MEDICAL CENTERPT Coag (PPP) [Time]10.9 sNormal9.7-13.0[facility] on above:Order Comment: Specimen Type: BLOOD SPECIMENOrdering Facility: [facility] Address:[address] [place] [id number] By: #### 20452- 0 ####[facility] LABCLIA [id number] [address] STATES OF AMERICACNCOon 70-35-9829YMUVPauwfs TextNormalCTuscarawas HospitalCB W Auto Differential panel (Bld)on 73-85-2761Xjjdelrrh (Bld) [#/Vol]0.04 10*3/uLNormal<0.11CTrinity [facility] on above:Order Comment: Specimen Type: BLOOD SPECIMENOrdering Facility: [facility] Address: [address] [place], [place] [address]Performed By: #### 97155-2 ####[facility] LABORATORYCLIA [id number] [place] [address] [place] AMERICABasophils/100 WBC (Bld)0.3 %NormalAvita Health System Bu[facility] Hospital on above:Order Comment: Specimen Type: BLOOD SPECIMENOrdering Facility: [facility] Address: [address] [place], [place] [address]Performed By: #### 66195-7 ####[facility] LABORATORYCLIA [id number] [place] [address] [place] AMERICADifferential cell count method Nom (Bld)AutoNormalCTrinity Health System East Campus on above:Order Comment: Specimen Type: BLOOD SPECIMENOrdering Facility: [facility] Address: [address] [place], [place] [address]Performed By: #### 19079-1 ####[facility] LABORATORYCLIA [id number] [place] [address] [place] Eosinophils (Bld) [#/Vol]0.54 10*3/uLHigh<0.46[facility] on above:Order Comment: Specimen Type: BLOOD SPECIMENOrdering Facility: [facility] Address: [address] [place] [address] Performed By: #### 23453-5 ####[facility] LABORATORYCLIA [id number] [place] [id number] [place] AMERICAEosinophils/100 WBC (Bld)3.7 % [facility] on above:Order Comment: Specimen Type: BLOOD SPECIMENOrdering Facility: [facility] Address: [address] [place], [place] [address]Performed By: #### 29856-1 ####[facility] LABORATORYCLIA [id number] [place] [address] [place] AMERICAErythrocyte distribution width (RBC) [Ratio]20.1 %High11.5-15.0 [facility] on above:Order Comment: Specimen Type: BLOOD SPECIMENOrdering Facility: [facility] Address: [address] [place], [place] [address]Performed By: #### 80115-2 ####[facility] LABORATORYCLIA [id number] [place] [address] [place] AMERICAHematocrit (Bld) [Volume fraction]25.2 %Low39.0-51.0[facility] on above:Order Comment: Specimen Type: BLOOD SPECIMENOrdering Facility: [facility] Address: [address] [place], [place] [address]Performed By: #### 93469-7 ####[facility] LABORATORYCLIA [id number] [place] [address] [place] Hemoglobin (Bld) [Mass/Vol]7.9 g/dLLow13.0-17.0[facility] on above:Order Comment: Specimen Type: BLOOD SPECIMENOrdering Facility: [facility] Address: [address] [place] [address] Performed By: #### 80599-6 ####[facility] LABORATORYCLIA [id number] [place] [address] [place] AMERICAImmature granulocytes (Bld) [#/Vol]0.39 10*3/uLHigh<0.10[facility] on above:Order Comment: Specimen Type: BLOOD SPECIMENOrdering Facility: [facility] Address: [address] [place], [place] [address]Performed By: #### 79935-6 ####[facility] LABORATORYCLIA [id number] [place] [address] [place] AMERICAImmature granulocytes/100 WBC (Bld)2.7 %Normal [facility] on above:Order Comment: Specimen Type: BLOOD SPECIMENOrdering Facility: [facility] Address: [address] [place], [place] [address]Performed By: #### 72372-4 ####[facility] LABORATORYCLIA [id number] [place] [address] [place] SYCAMORE MEDICAL CENTERLymphocytes (Bld) [#/Vol]1.01 10*3/uLNormal1.00-4.00[facility] on above:Order Comment: Specimen Type: BLOOD SPECIMENOrdering Facility: [facility] Address: [address] [place], [place] [address]Performed By: #### 50385-4 ####[facility] LABORATORYCLIA [id number] [place] [address] [place] Lymphocytes/100 WBC (Bld)7.0 %NormalAvita Health System Bu[facility] on above: Order Comment: Specimen Type: BLOOD SPECIMENOrdering Facility: [facility] Address: [address] [place], [place] [address]Performed By: #### 19271-3 ####[facility] LABORATORYCLIA [id number] [address]ETMCH (RBC) [Entitic mass]32.8 ndPefnvl79.0-34.0[facility] on above:Order Comment: Specimen Type: BLOOD SPECIMENOrdering Facility: [facility] Address: [address] [place], [place] [address]Performed By: #### 46276-7 ####[facility] LABORATORYCLIA [id number] [place] [id number] [place] [facility] OF SYCAMORE MEDICAL CENTERMCHC (RBC) [Mass/Vol]31.3 g/cJDgxmjj83.5-36.0 [facility] on above:Order Comment: Specimen Type: BLOOD SPECIMENOrdering Facility: [facility] Address: [address] [place], [place] [address]Performed By: #### 20506-8 ####[facility] LABORATORYCLIA [id number] [address] (RBC) [Entitic vol]104.6 uPNngy37.0-100.0[facility]vel[facility] Comment on above:Order Comment: Specimen Type: BLOOD SPECIMENOrdering Facility: [facility] Address: [address] [place], [place] [address]Performed By: #### 14437-9 ####AK[facility] LABORATORYCLIA [id number] [place] [address] [place] AMERICAMonocytes (Bld) [#/Vol] 0.73 10*3/uLNormal<0.87[facility] Vincent Medical CenterComsheridan community hospital on above:Order Comment: Specimen Type: BLOOD SPECIMENOrdering Facility: [facility] Address: [address] [place], [place] [address]Performed By: #### 27236-6 ####[facility] LABORATORYCLIA [id number] [place] [id number] [place] AMERICAMonocytes/100 WBC (Bld)5.0 %NormalMercy Health St. Vincent Medical CenterComment on above:Order Comment: Specimen Type: BLOOD SPECIMENOrdering Facility: [facility] Address: [address] [place], [place] [address]Performed By: #### 40132-7 ####[facility] LABORATORYCLIA [id number] [place] [id number] [place] AMERICANeutrophils (Bld) [#/Vol]11.82 10*3/uLHigh1.45-7.50[facility] Vincent Medical CenterComsheridan community hospital on above:Order Comment: Specimen Type: BLOOD SPECIMENOrdering Facility: [facility] Address: [address] [place], [place] [address]Performed By: #### 01866-7 ####[facility] LABORATORYCLIA [id number] [place] [address] [place] Neutrophils/100 WBC (Bld)81.3 %NormalAvita Health System Bu[facility] on above: Order Comment: Specimen Type: BLOOD SPECIMENOrdering Facility: [facility] Address: [address] [place], [place] [address]Performed By: #### 17390-6 ####[facility] LABORATORYCLIA [id number] [place] [id number] [place] AMERICANucleated RBC (Bld) [#/Vol] 10*3/uLNormal<0.01[facility] Vincent Medical CenterComsheridan community hospital on above:Order Comment: Specimen Type: BLOOD SPECIMENOrdering Facility: [facility] Address: [address] [place], [place] [address]Performed By: #### 55488-9 ####[facility] LABORATORYCLIA [id number] [place] [address] [place] AMERICANucleated RBC/100 WBC (Bld) [Ratio]0.0 /100 WBCNormalCTuscarawas HospitalComsheridan community hospital on above:Order Comment: Specimen Type: BLOOD SPECIMENOrdering Facility: [facility] Ad dress: [address] [place], [place] [address]Performed By: #### 93325-6 ####[facility] LABORATORYCLIA [id number] [place] [id number] [place] AMERICAPlatelet mean volume (Bld) [Entitic vol]10.4 fLNormal 9.0-12.7CTrinity [facility] on above:Order Comment: Specimen Type: BLOOD SPECIMENOrdering Facility: [facility] Address: [address] [place], [place] [address]Performed By: #### 47468-1 ####[facility] LABORATORYCLIA [id number] [place] [address] [place] AMERICAPlatelets (Bld) [#/Vol]128 10*3/tCPje029-478PfjgtxidyMercy Health St. [facility] Center Comment on above:Order Comment: Specimen Type: BLOOD SPECIMENOrdering Facility: [facility] Address: [address] [place] [address]Uezhoecjb By: #### 17317-0 ####[facility] LABORATORYCLIA [id number] [place] [id number] [place] AMERICARBC (Bld) [#/Vol]2.41 10*6/uLLow4.20-6.00[facility] on above:Order Comment: Specimen Type: BLOOD SPECIMENOrdering Facility: [facility] Address: [address] [place], [place] [address]Performed By: #### 93735-0 ####[facility]ON[facility] LABORATORYCLIA [id number] [place] [address] [place] AMERICAWBC (Bld) [#/Vol]14.53 10*3/uLHigh3.70-11.00 [facility] on above:Order Comment: Specimen Type: BLOOD SPECIMENOrdering Facility: [facility] Address: [address] [place], [place] [address]Performed By: #### 96198-4 ####[facility] LABORATORYCLIA [id number] [place] [address] [place] AMERICACRP SerPl-mCncon 84-07-3765SVU [Mass/Vol]11.0 mg/dLHigh<0.9CTrinity [facility] on above:Order Comment: Specimen Type: BLOOD SPECIMENOrdering Facility: [facility] Address: [address] [place], [place] [address]Performed By: #### 1988-5 ####[facility]ON[facility] LABORATORYCLIA [id number] [place] [address] [place] AMERICACYTOMEGALOVIRUS (CMV) DNA, QUANTITATIVE PCR, [facility] CENTERon 07-00-1545AXR DNA JESSICA+probe Qn (P)Not detectedNormalNot DetectedAvita Health System [facility] on above:Order Comment: Specimen Type: BLOOD SPECIMENOrdering Facility: [facility] Address: [address] [place] [address] Performed By: #### CMVQNT ####[facility] LABCLIA [id number] [place] [address] [place] AMERICAComprehensive metabolic 2000 panelon 34-88-7729Scijfsv [Mass/Vol]2.8 g/dLLow3.9-4.9CTrinity [facility] on above:Order Comment: Specimen Type: BLOOD SPECIMENOrdering Facility: [facility] Address: [address] [place], [place] [address]Performed By: #### 76063-1 ####[facility]ON[facility] LABORATORYCLIA [id number] [place] [address] [place] AMERICAALP [Catalytic activity/Vol]161 U/AEjtj26-933SobadeoieAvita Health System [facility] on above:Order Comment: Specimen Type: BLOOD SPECIMENOrdering Facility: [facility] Address: [address] [place] [address] Performed By: #### 76039-0 ####[facility] LABORATORYCLIA [id number] [place] [address] [place] AMERICAALT [Catalytic activity/Vol]20 U/CGrjaik64-23CtwpxkpvoAvita Health System [facility] on above:Order Comment: Specimen Type: BLOOD SPECIMENOrdering Facility: [facility] Ad dress: [address] [place], [place] [address]Performed By: #### 93721-9 ####[facility] LABORATORYCLIA [id number] [place] [id number] [place] AMERICAAnion gap [Moles/Vol]12 mmol/LNormal8-15[facility] on above:Order Comment: Specimen Type: BLOOD SPECIMENOrdering Facility: [facility] Address: [address] [place], [place] [address]Performed By: #### 71562-8 ####[facility] LABORATORYCLIA [id number] [place] [id number] [place] AMERICAAST [Catalytic activity/Vol]26 U/GGsukjf78-82ZjrlsizigAvita Health System [facility] on above:Order Comment: Specimen Type: BLOOD SPECIMENOrdering Facility: [facility] Address: [address] [place] [address] Performed By: #### 65140-8 ####[facility] LABORATORYCLIA [id number] [place] [address] [place] AMERICABilirubin [Mass/Vol]0.2 mg/dL Normal0.2-1.3CTrinity Health [facility] on above:Order Comment: Specimen Type: BLOOD SPECIMENOrdering Facility: [facility] Ad dress: [address] [place], [place] [address]Performed By: #### 29976-7 ####[facility] LABORATORYCLIA [id number] [place] [address] [place] AMERICACalcium [Mass/Vol]8.9 mg/dLNormal8.5-10.2CTrinity Health [facility] on above:Order Comment: Specimen Type: BLOOD SPECIMENOrdering Facility: [facility] Address: [address] [place], [place] [address]Performed By: #### 26237-4 ####[facility] LABORATORYCLIA [id number] [place] [address] [place] AMERICAChloride [Moles/Vol]97 mmol/OGwq98-761PcsytfnpuAvita Health System [facility] on above:Order Comment: Specimen Type: BLOOD SPECIMENOrdering Facility: [facility] Address: [address] [place] [address] Performed By: #### 21560-8 ####K[facility] LABORATORYCLIA [id number] [place] [address] [place] AMERICACO2 [Moles/Vol]22 mmol/LNormal 22-30[facility] on above:Order Comment: Specimen Type: BLOOD SPECIMENOrdering Facility: [facility] Address: [address] [place], [place] [address]Performed By: #### 21890-8 ####K[facility] LABORATORYCLIA [id number] [place] [address] [place] AMERICACreatinine [Mass/Vol]1.14 mg/dLNormal0.73-1.22[facility] on above:Order Comment: Specimen Type: BLOOD SPECIMENOrdering Facility: [facility] Address: [address] [place], [place] [address]Performed By: #### 95349-9 ####K[facility]INA LABORATORYCLIA [id number] [place] [id number] [place] AMERICAeGFRcr SerPlBld CKD-EPI 426298 mL/min/1.73m???Normal>=60[facility] Comment on above:Order Comment: Specimen Type: BLOOD SPECIMENOrdering Facility: [facility] Address: [address] [place], [place] [id number] Comment: Estimated Glomerular Filtration Rate (eGFR) is [...] accurately reflect actual GFR. Performed By: #### 09726-4 ####K[facility] LABORATORYCLIA [id number] [place] [id number] [place] AMERICAGlucose [Mass/Vol]99 mg/dL Pqbxlo10-19VqewngsgeAvita Health System [facility] on above:Order Comment: Specimen Type: BLOOD SPECIMENOrdering Facility: [facility] Ad dress: [address] [place], [place] [address]Result Comment: The [place] [employer] (ADA) provides guidance for cutoff [...] Standards of Medical Care in Diabetes 2016, [place] [employer]. Diabetes Care. 2016.39(Suppl 1). Performed By: #### 24975-4 ####[facility] LABORATORYCLIA [id number] [place] [address] [place] AMERICAPotassium [Moles/Vol]5.5 mmol/LHigh3.7-5.1CTrinity Health System [facility] on above:Order Comment: Specimen Type: BLOOD SPECIMENOrdering Facility: [facility] Address: [address] [place], [place] [address]Performed By: #### 20424-9 ####[facility] LABORATORYCLIA [id number] [place] [address] [place] AMERICAProtein [Mass/Vol]6.1 g/dLLow6.3-8.0[facility] on above:Order Comment: Specimen Type: BLOOD SPECIMENOrdering Facility: [facility] Address: [address] [place], [place] [address]Performed By: #### 93286-2 ####[facility] LABORATORYCLIA [id number] [place] [address] [place] AMERICASodium [Moles/Vol]131 mmol/VXro515-670PwaeguuzwAvita Health System [facility] Hospital on above:Order Comment: Specimen Type: BLOOD SPECIMENOrdering Facility: [facility] Address: [address] [place] [address] Performed By: #### 03945-9 ####[facility] LABORATORYCLIA [id number] [place] [address] [place] AMERICAUrea nitrogen [Mass/Vol]53 mg/dLHigh9-24[facility] on above:Order Comment: Specimen Type: BLOOD SPECIMENOrdering Facility: [facility] Ad dress: [address] [place], [place] [address]Performed By: #### [id number] ####KARINA LABORATORYCLIA [id number] [place] [address] [place] OF AMERICAGGT SerPl-cCncon [id number] glutamyl transferase [Catalytic activity/Vol]91 U/CMdht57-19DvqmsmwceAvita Health System [facility] on above:Order Comment: Specimen Type: BLOOD SPECIMENOrdering Facility: [facility] Address: [address] [address] Performed By: #### 2324-2 ####[facility] MAIN LABCLIA [id number] [place] [address] [place] AMERICAMagnesium SerPl-mCncon 39-96-7973Zyvglqpom [Mass/Vol]1.9 mg/dLNormal1.7-2.3CTuscarawas Hospital Comment on above:Order Comment: Specimen Type: BLOOD SPECIMENOrdering Facility: [facility] Address: [address] [place], [place] [address]Performed By: #### 12843-6 ####KARINA LABORATORYCLIA [id number] [place] [address] [place] AMERICANT-proBNP SerPl-mCncon 24-23-0838Gfxnhaanfqa peptide.B prohormone N-Terminal [Mass/Vol]440 pg/mLHigh <125[facility] on above:Order Comment: Specimen Type: BLOOD SPECIMENOrdering Facility: [facility] Address: [address] [place], [place] [address]Performed By: #### 59784-2 ####[facility] LABORATORYCLIA [id number] [place] [address] [place] AMERICANURSING PROGon 71-37-2888HXLNCKM PROGNormalMercy Health St[facility] Phosphate SerPl-mCncon 23-21-8036Ptlbaeekj [Mass/Vol]5.1 mg/dLHigh2.7-4.8 [facility] on above:Order Comment: Specimen Type: BLOOD SPECIMENOrdering Facility: [facility] Address: [address] [place], [place] [address]Performed By: #### 2777-1 ####[facility] LABORATORYCLIA [id number] [place] [address] [place] AMERICATacrolimus Bld-mCncon 02-97-5798Mbxxytdjnq (Bld) [Mass/Vol]6.3 ng/mL Normal5.0-20.0[facility] on above:Order Comment: Specimen Type: BLOOD SPECIMENOrdering Facility: [facility] Ad dress: [address] [place], [place] [address]Result Comment: Individualized target levels for a given [...] situation. Test performed by chemiluminescent immunoassay using Xactly CorpniRetrophin i.Performed By: #### 60240-5 ####[facility] MAIN LABCLIA [id number] [place] [address] [place] CBC W Auto Differential panel (Bld)on 40-55-0358Ylksnmxac (Bld) [#/Vol]0.07 10*3/uLNormal<0.11CT[facility] on above:Order Comment: Specimen Type: BLOOD SPECIMENOrdering Facility: [facility] Address: [address] [place], [place] [address]Performed By: #### 86150-8 ####KARINA LABORATORYCLIA [id number] [place] [address] [place] AMERICABasophils/100 WBC (Bld)0.4 %[facility] on above:Order Comment: Specimen Type: BLOOD SPECIMENOrdering Facility: [facility] Address: [address] [place], [place] [address]Performed By: #### 80171-1 ####KARINA LABORATORYCLIA [id number] [place] [address] [place] AMERICADifferential cell count method Nom (Bld)AutoNormalClevelFostoria City Hospital on above:Order Comment: Specimen Type: BLOOD SPECIMENOrdering Facility: [facility] Address: [address] [place], [place] [address]Performed By: #### 01269-9 ####KARINA LABORATORYCLIA [id number] [place] [address] [place] Eosinophils (Bld) [#/Vol]0.31 10*3/uLNormal<0.46[facility] Comment on above:Order Comment: Specimen Type: BLOOD SPECIMENOrdering Facility: [facility] Address: [address] [place], [place] [address]Performed By: #### 23550-5 ####KARIAN LABORATORYCLIA [id number] [place] [address] [place] AMERICAEosinophils/100 WBC (Bld)1.6 %[facility] on above:Order Comment: Specimen Type: BLOOD SPECIMENOrdering Facility: [facility] Address: [address] [place], [place] [address]Performed By: #### 23799-3 ####KARINA LABORATORYCLIA [id number] [place] [address] [place] AMERICAErythrocyte distribution width (RBC) [Ratio] 20.2 %High11.5-15.0[facility] on above:Order Comment: Specimen Type: BLOOD SPECIMENOrdering Facility: [facility] Address: [address] [place], [place] [address]Performed By: #### 98724-4 ####KARINA LABORATORYCLIA [id number] [place] [address] [place] AMERICAHematocrit (Bld) [Volume fraction]24.9 %Low 39.0-51.0[facility] on above:Order Comment: Specimen Type: BLOOD SPECIMENOrdering Facility: [facility] Ad dress: [address] [place], [place] [address]Performed By: #### 83707-2 ####KARINA LABORATORYCLIA [id number] [place] [address] [place] AMERICAHemoglobin (Bld) [Mass/Vol]7.7 g/dLLow13.0-17.0[facility] on above:Order Comment: Specimen Type: BLOOD SPECIMENOrdering Facility: [facility] Address: [address] [place], [place] [address]Performed By: #### 40459-8 ####KARINA LABORATORYCLIA [id number] [place] [id number] [place] AMERICAImmature granulocytes (Bld) [#/Vol]0.83 10*3/uLHigh<0.10[facility] on above:Order Comment: Specimen Type: BLOOD SPECIMENOrdering Facility: [facility] Address: [address] [place], [place] [address]Performed By: #### 36800-3 ####KARINA LABORATORYCLIA [id number] [place] [address] [place] Immature granulocytes/100 WBC (Bld)4.2 %NormalAvita Health System [facility] on above:Order Comment: Specimen Type: BLOOD SPECIMENOrdering Facility: [facility] Address: [address] [place] [address] Performed By: #### 32366-5 ####KARINA LABORATORYCLIA [id number] [place] [address] [place] AMERICALymphocytes (Bld) [#/Vol]0.83 10*3/uLLow1.00-4.00[facility] on above:Order Comment: Specimen Type: BLOOD SPECIMENOrdering Facility: [facility] Address: [address] [place], [place] [address]Performed By: #### 55933-3 ####KARINA LABORATORYCLIA [id number] [place] [address] [place] AMERICALymphocytes/100 WBC (Bld)4.2 %NormalAvita Health System [facility] on above:Order Comment: Specimen Type: BLOOD SPECIMENOrdering Facility: [facility] Address: [address] [place], [place] [address]Performed By: #### 11121-4 ####KARINA LABORATORYCLIA [id number] [place] [id number] [facility] (RBC) [Entitic mass]32.2 yhNqesoh58.0-34.0[facility] Comment on above:Order Comment: Specimen Type: BLOOD SPECIMENOrdering Facility: [facility] Address: [address] [place], [place] [address]Performed By: #### 94897-8 ####KARINA LABORATORYCLIA [id number] [place] [address] [facility] (RBC) [Mass/Vol] 30.9 g/sPZqcffl44.5-36.0[facility] on above:Order Comment: Specimen Type: BLOOD SPECIMENOrdering Facility: [facility] Address: [address] [place], [place] [address]Performed By: #### 27889-3 ####KARINA LABORATORYCLIA [id number] [place] [address] [place] AMERICAMCV (RBC) [Entitic vol]104.2 uNFscp49.0-100.0 [facility] on above:Order Comment: Specimen Type: BLOOD SPECIMENOrdering Facility: [facility] Address: [address] [place], [place] [address]Performed By: #### 88107-4 ####KARINA LABORATORYCLIA [id number] [place] [address] [place] AMERICAMonocytes (Bld) [#/Vol]0.92 10*3/uLHigh<0.87[facility] Comment on above:Order Comment: Specimen Type: BLOOD SPECIMENOrdering Facility: [facility] Address: [address] [place], [place] [address]Performed By: #### 97936-7 ####KARINA LABORATORYCLIA [id number] [place] [id number] [place] AMERICAMonocytes/100 WBC (Bld) 4.7 %NormalAvita Health System [facility] on above:Order Comment: Specimen Type: BLOOD SPECIMENOrdering Facility: [facility] Ad dress: [address] [place], [place] [address]Performed By: #### 24345-2 ####KARINA LABORATORYCLIA [id number] [place] [address] [place] AMERICANeutrophils (Bld) [#/Vol]16.62 10*3/uLHigh1.45-7.50 [facility] on above:Order Comment: Specimen Type: BLOOD SPECIMENOrdering Facility: [facility] Address: [address] [place], [place] [address]Performed By: #### 36770-1 ####KARINA LABORATORYCLIA [id number] [place] [id number] [place] AMERICANeutrophils/100 WBC (Bld)84.9 %NormalAvita Health System [facility] on above:Order Comment: Specimen Type: BLOOD SPECIMENOrdering Facility: [facility] Address: [address] [place] [address] Performed By: #### 31538-8 ####KARINA LABORATORYCLIA [id number] [place] [id number] [place] AMERICANucleated RBC (Bld) [#/Vol] 10*3/uLNormal<0.01[facility] on above:Order Comment: Specimen Type: BLOOD SPECIMENOrdering Facility: [facility] Address: [address] [place], [place] [address]Performed By: #### 24556-0 ####KARINA LABORATORYCLIA [id number] [place] [address] [place] AMERICANucleated RBC/100 WBC (Bld) [Ratio]0.0 /100 WBCNormalCTrinity Health System East Campus on above:Order Comment: Specimen Type: BLOOD SPECIMENOrdering Facility: [facility] Ad dress: [address] [place], [place] [address]Performed By: #### 73857-3 ####KARINA LABORATORYCLIA [id number] [place] [id number] [place] AMERICAPlatelet mean volume (Bld) [Entitic vol]10.2 fLNormal 9.0-12.7CTrinity Health System [facility] on above:Order Comment: Specimen Type: BLOOD SPECIMENOrdering Facility: [facility] Address: [address] [place], [place] [address]Performed By: #### 65744-6 ####KARINA LABORATORYCLIA [id number] [place] [id number] [place] AMERICAPlatelets (Bld) [#/Vol]177 10*3/mFXanzyv559-298DyqjtwaztMercy Health St. [facility] Comment on above:Order Comment: Specimen Type: BLOOD SPECIMENOrdering Facility: [facility] Address: [address] [place], [place] [address]Performed By: #### 82438-7 ####KARINA LABORATORYCLIA [id number] [place] [address] [place] AMERICARBC (Bld) [#/Vol]2.39 10*6/uLLow4.20-6.00[facility] on above:Order Comment: Specimen Type: BLOOD SPECIMENOrdering Facility: [facility] Address: [address] [place] [address]Psryihwpj By: #### 35949-9 ####KARINA LABORATORYCLIA [id number] [place] [id number] [place] AMERICAWBC (Bld) [#/Vol]19.58 10*3/uLHigh3.70-11.00 [facility] on above:Order Comment: Specimen Type: BLOOD SPECIMENOrdering Facility: [facility] Address: [address] [place], [place] [address]Performed By: #### 69781-2 ####KARINA LABORATORYCLIA [id number] [place] [id number] [place] AMERICACRP SerPl-mCnc 08-63-0348IOY [Mass/Vol]9.7 mg/dLHigh<0.9CTrinity Health [facility] on above:Order Comment: Specimen Type: BLOOD SPECIMENOrdering Facility: [facility] Address: [address] [place], [place] [address]Performed By: #### 1988-5 ####KARINA LABORATORYCLIA [id number] [place] [id number] [place] AMERICAComprehensive metabolic 2000 panelon 94-24-5243Tdofauw [Mass/Vol]2.8 g/dLLow3.9-4.9CTrinity [facility] on above:Order Comment: Specimen Type: BLOOD SPECIMENOrdering Facility: [facility] Ad dress: [address] [place] [address]Apawnnvax By: #### 37213-5 ####KARINA LABORATORYCLIA [id number] [place] [id number] [place] AMERICAALP [Catalytic activity/Vol]173 U/PXfoh95-426UzrfkwtnmAvita Health [facility] on above:Order Comment: Specimen Type: BLOOD SPECIMENOrdering Facility: [facility] Address: [address] [place] [address]Vbxqfomok By: #### 81083-8 ####KARINA LABORATORYCLIA [id number] [place] [address] [place] AMERICAALT [Catalytic activity/Vol]20 U/FMfatpr37-98TulwyxhazMercy Health St. [facility] Comment on above:Order Comment: Specimen Type: BLOOD SPECIMENOrdering Facility: [facility] Address: [address] [place] [address] 570[address]Ipqpoihpc By: #### 79954-7 ####KARINA LABORATORYCLIA [id number] [place] [address] [place] AMERICAAnion gap [Moles/Vol]10 mmol/LNormal8-15[facility] Vincent Medical CenterComment on above:Order Comment: Specimen Type: BLOOD SPECIMENOrdering Facility: [facility] Address: [address] [place] [address]Euwbdakhu By: #### 73554-7 ####KARINA LABORATORYCLIA [id number] [place] [address] [place] AMERICAAST [Catalytic activity/Vol]24 U/PQlcbmb88-[address] Vincent Medical CenterComment on above:Order Comment: Specimen Type: BLOOD SPECIMENOrdering Facility: [facility] Address: [address] [place] [address]Pfytxiwss By: #### 23966-6 ####KARINA LABORATORYCLIA [id number] [place] [address] [place] AMERICABilirubin [Mass/Vol]0.2 mg/dLNormal0.2-1.3CTuscarawas Hospital Comment on above:Order Comment: Specimen Type: BLOOD SPECIMENOrdering Facility: [facility] Address: [address] [place] [address]Iszibshta By: #### 08494-2 ####KARINA LABORATORYCLIA [id number] [place] [address] [place] AMERICACalcium [Mass/Vol]8.9 mg/dLNormal8.5-10.2CTuscarawas HospitalComsheridan community hospital on above:Order Comment: Specimen Type: BLOOD SPECIMENOrdering Facility: [facility] Address: [address] [place] [address]Bbvdqqhhg By: #### 00979-2 ####[facility] LABORATORYCLIA [id number] [place] [address] [place] AMERICAChloride [Moles/Vol]97 mmol/YSyl49-777 [facility] on above:Order Comment: Specimen Type: BLOOD SPECIMENOrdering Facility: [facility] Address: [address] [place], [place] [address]Performed By: #### 45534-7 ####KARINA LABORATORYCLIA [id number] [place] [address] [place] AMERICACO2 [Moles/Vol]24 mmol/XEbkgvg43-03YvjmojcalAvita Health System [facility] on above:Order Comment: Specimen Type: BLOOD SPECIMENOrdering Facility: [facility] Address: [address] [place] [address] Performed By: #### 90918-8 ####KARINA LABORATORYCLIA [id number] [place] [address] [place] AMERICACreatinine [Mass/Vol]0.98 mg/dLNormal0.73-1.22[facility] on above:Order Comment: Specimen Type: BLOOD SPECIMENOrdering Facility: [facility] Address: [address] [place], [place] [address]Performed By: #### 09155-6 ####KARINA LABORATORYCLIA [id number] [place] [address] [place] AMERICAeGFRcr SerPlBld CKD-EPI 892892 mL/min/1.73m??? Normal>=60[facility] on above:Order Comment: Specimen Type: BLOOD SPECIMENOrdering Facility: [facility] Ad dress: [address] [place], [place] [address]Result Comment: Estimated Glomerular Filtration Rate (eGFR) is [...] not accurately reflect actual GFR.Performed By: #### 89762-7 ####KARINA LABORATORYCLIA [id number] [place] [id number] [place] AMERICAGlucose [Mass/Vol]108 mg/zJSwxm71-35IzucfdlixAvita Health System Bu[facility] Hospital on above:Order Comment: Specimen Type: BLOOD SPECIMENOrdering Facility: [facility] Address: [address] [place], [place] [address]Result Comment: The [place] Diabetes [employer] (ADA) provides guidance for cutoff [...] Standards of Medical Care in Diabetes 2016, [place] [employer]. Diabetes Care. 2016.39(Suppl 1).Performed By: #### 94796-0 ####KARINA LABORATORYCLIA [id number] [place] [id number] [place] AMERICAPotassium [Moles/Vol]5.5 mmol/LHigh3.7-5.1CTrinity Health [facility] on above:Order Comment: Specimen Type: BLOOD SPECIMENOrdering Facility: [facility] Address: [address] [place], [place] [address]Performed By: #### 55453-5 ####KARINA LABORATORYCLIA [id number] [place] [address] [place] AMERICAProtein [Mass/Vol]6.0 g/dLLow6.3-8.0[facility] on above:Order Comment: Specimen Type: BLOOD SPECIMENOrdering Facility: [facility] Address: [address] [place] [address] Performed By: #### 73348-7 ####KARINA LABORATORYCLIA [id number] [place] [address] [place] AMERICASodium [Moles/Vol]131 mmol/L Fxx808-999EcivrocnlAvita Health System Bucyrus Hospital on above:Order Comment: Specimen Type: BLOOD SPECIMENOrdering Facility: [facility] Ad dress: [address] [place] [address] 444[address]Cktbqfetf By: #### 25113-2 ####KARINA LABORATORYCLIA [id number] [place] [address] [place] AMERICAUrea nitrogen [Mass/Vol]43 mg/dLHigh9-24[facility] on above:Order Comment: Specimen Type: BLOOD SPECIMENOrdering Facility: [facility] Address: [address] [place] [address] [phone] By: #### 88618-0 ####KARINA LABORATORYCLIA [id number] [place] [address] [place] AMERICAGGT SerPl-cCncon 80-46-0141Pokar glutamyl transferase [Catalytic activity/Vol]94 U/L Qkkd12-02QsgfmmhbvAvita Health System Bucy[facility] on above:Order Comment: Specimen Type: BLOOD SPECIMENOrdering Facility: [facility] Ad dress: [address] [place] [address] 76[address]Ulngzjfkm By: #### 2324-2 ####[facility] MAIN LABCLIA [id number] [place] [address] [place] AMERICAMagnesium SerPl-mCncon 42-68-9026Avmvghyti [Mass/Vol]1.7 mg/dLNormal1.7-2.3CTrinity [facility] on above:Order Comment: Specimen Type: BLOOD SPECIMENOrdering Facility: [facility] Address: [address] [place], [place] [address]Performed By: #### 92926-7 ####KARINA LABORATORYCLIA [id number] [place] [id number] [place] AMERICANT-proBNP SerPl-mCncon 48-95-0146Rxsuagbtsck peptide.B prohormone N-Terminal [Mass/Vol]363 pg/mLHigh<125[facility] on above:Order Comment: Specimen Type: BLOOD SPECIMENOrdering Facility: [facility] Address: [address] [place], [place] [address]Performed By: #### 01693-3 ####[facility] LABORATORYCLIA [id number] [place] [id number] [place] Phosphate SerPl-[facility] 64-59-7040Jsmetsbwq [Mass/Vol]4.6 mg/dLNormal2.7-4.8 [facility] on above:Order Comment: Specimen Type: BLOOD SPECIMENOrdering Facility: [facility] Address: [address] [place], [place] [address]Performed By: #### 2777-1 ####[facility] LABORATORYCLIA [id number] [place] [id number] [place] [facility] MEDICAL CENTERTacrolimus Bld-[facility] 24-80-4699Iienczrsaa (Bld) [Mass/Vol]6.8 ng/mL Normal5.0-20.0[facility] on above:Order Comment: Specimen Type: BLOOD SPECIMENOrdering Facility: [facility] Ad dress: [address] [place], [place] [address]Result Comment: Individualized target levels for a given [...] situation. Test performed by chemiluminescent immunoassay using Pairin Alinity i.Performed By: #### 09695-9 ####[facility] MAIN LABCLIA [id number] [place] [id number] [place] CT LUMBAR SPINE WO IVCONon 01-24-2025* * *Final Report* * * DATE OF EXAM: Jan 24 2025 2:16PM [facility] 0508 - CT LUMBAR SPINE WO [...] DATE OF EXAM: Jan 24 2025 2:16PM [facility] 0508 - CT LUMBAR SPINE WO [...] DATE OF EXAM: Jan 24 2025 2:16PM [facility] 0508 - CT LUMBAR SPINE WO [...] DATE OF EXAM: Jan 24 2025 2:16PM [facility] 0514 - CT THORACIC SPINE WO [...] DATE OF EXAM: Jan 24 2025 2:16PM [facility] 0514 - CT THORACIC SPINE WO [...] height loss and i (more content not included)...[facility] CT THORACIC SPINE WO IVCON* * *Final Report* * * * * * SEE BOTTOM OF REPORT FOR ADDENDED TEXT * * * DATE OF EXAM: Jan 24 2025 2:16PM [facility] 0514 - CT THORACIC SPINE WO [...] instrumented posterior fusion T8-L3 (more content not included)...[facility] Panel InformationOrdered By: Radiologist Radiology on 69-91-8689WFVB [employer] Work Phone: No Panel Informationon 65-13-7755Mvwncrlky Study observation (narrative)[facility]OM[facility] HealthcareTYPE + SCREENon 70-69-4791OJFGRyjxhv [facility] on above:Order Comment: Specimen Type: BLOOD SPECIMENOrdering Facility: [facility] Address: [address] [place], [place] [address]Performed By: #### TSCR ####CC MAIN BLOOD BANKCLIA [id number] [address] [address] [address] [facility] BAPTISTRh Nom (Bld)PositiveNormalCTrinity Health System East Campus on above: Order Comment: Specimen Type: BLOOD SPECIMENOrdering Facility: [facility] Address: [address] [place], [place] [address]Performed By: #### TSCR ####CC MAIN BLOOD BANKCLIA [id number] [address] [address] [facility]ENS BAPTISTTYPE AND SCREEN EXPIRATION 01/27/2025 23:59NormalCTrinity Health System [facility] Campus on above:Order Comment: Specimen Type: BLOOD SPECIMENOrdering Facility: [facility] Address: [address] [place], [place] [address]Performed By: #### TSCR ####CC MAIN BLOOD BANKCLIA [id number] [address] [address] CITIZENS BAPTISTECG 12 leadon 01-22-2025 Ventricular Rate : 74 BPM Atrial Rate : 74 BPM P-R Interval : 126 ms QRS Duration : 86 ms Q-T Interval : 412 ms QTC Calculation(Bazett) : 457 ms Calculated P [place] : 21 degrees Calculated R [place] : 34 degrees Calculated T [place] : 26 degrees WARNING: INTERPRETATION OF THIS ECG, ALTHOUGH ATTEMPTED, MAY BE ADVERSELY AFFECTED BY DATA QUALITY SINUS RHYTHM WITH PREMATURE ATRIAL COMPLEXES LOW VOLTAGE QRS, CONSIDER PULMONARY DISEASE, PERICARDIAL EFFUSION, OR NORMAL VARIANT BORDERLINE ECG Confirmed by ABENA URENA MD (57) on 01/22/2025 11:44:19 AM NAME : LOYD BLANDON PID : [id number] : 1955 Gender : Male Race : ORD : [id number] Procedure Date : Dec 25 2024 13:20:17 [...] QTC Calculation(Bazett) : 457 ms Calculated P [place] : 21 degrees Calculated R [place] : 34 degrees Calculated T [place] : 26 degrees WARNING: INTERPRETATION OF THIS ECG, ALTHOUGH ATTEMPTED, MAY BE ADVERSELY AFFECTED BY DATA QUALITY SINUS RHYTHM WITH PREMATURE ATRIAL COMPLEXES LOW VOLTAGE QRS, CONSIDER PULMONARY DISEASE, PERICARDIAL EFFUSION, OR NORMAL VARIANT BORDERLINE ECG Confirmed by ABENA URENA MD (57) on 01/22/2025 11:44:19 AM NAME : LOYD BLANDON PID : [id number] : 1955 Gender : Male Race : ORD : [id number] Procedure Date : Dec 25 2024 13:20:17 [...] PAUL SNOWDEN Acquired by : EDDIE [facility] DaytonECG 12 leadOrdered By: Radiologist Radiology on 64-26-3069LLCG [employer] Work Phone: ECG 12 leadon 22-01-4503Ciedyipdnyu Rate : 81 BPM Atrial Rate : 81 BPM P-R Interval : 130 ms QRS Duration : 84 ms Q-T Interval : 368 ms QTC Calculation(Bazett) : 427 ms Calculated P [place] : 48 degrees Calculated R [place] : 38 degrees Calculated T [place] : 39 degrees NORMAL SINUS RHYTHM NORMAL ECG Confirmed by MD BYERS TAMANNA ([id number]) on 01/21/2025 4:07:28 PM NAME : LOYD BLANDON PID : [id number] : 1955 Gender : Male Race : ORD : [id number] Procedure Date : Dec 11 2024 00:36:31 Edit Date : Jan 21 2025 16:07:40 Diagnosis: NORMAL SINUS RHYTHM NORMAL ECG Confirmed by MD BYERS TAMANNA ([id number]) on 01/21/2025 4:07:28 PM Test Reason : Chest Pain Location : 542 : G52NS G053- Overread By : MD BYERS TAMANNA Edited By : MD BYERS TAMANNA Referred By : PAUL SNOWDEN Acquired by : [id number],CCFRadiology, Radiologist, MD - 01/21/2025 Ventricular Rate : 81 BPM Atrial Rate : 81 BPM P-R Interval : 130 ms QRS Duration : 84 ms Q-T Interval : 368 ms QTC Calculation(Bazett) : 427 ms Calculated P [place] : 48 degrees Calculated R [place] : 38 degrees Calculated T [place] : 39 degrees NORMAL SINUS RHYTHM NORMAL ECG Confirmed by MD BYERS TAMANNA ([id number]) on 01/21/2025 4:07:28 PM NAME : LOYD BLANDON PID : [id number] : 1955 Gender : Male Race : ORD : [id number] Procedure Date : Dec 11 2024 00:36:31 Edit Date : Jan 21 2025 16:07:40 Diagnosis: NORMAL SINUS RHYTHM NORMAL ECG Confirmed by MD BYERS TAMANNA ([id number]) on 01/21/2025 4:07:28 PM Test Reason : Chest Pain Location : 542 : G52NS G053- Overread By : MD BYERS TAMANNA Edited By : MD BYERS TAMANNA Referred By : PAUL SNOWDEN Acquired by : [id number], NOMS HealthcareVentricular Rate : 89 BPM Atrial Rate : 89 BPM P-R Interval : 132 ms QRS Duration : 82 ms Q-T Interval : 356 ms QTC Calculation(Bazett) : 433 ms Calculated P [place] : 34 degrees Calculated R [place] : 39 degrees Calculated T [place] : 42 degrees NORMAL SINUS RHYTHM NORMAL ECG Confirmed by MD BYERS TAMANNA ([id number]) on 01/21/2025 4:07:25 PM NAME : LOYD BLANDON PID : [id number] : 1955 Gender : Male Race : ORD : [id number] Procedure Date : Dec 10 2024 21:40:00 Edit Date : Jan 21 2025 16:07:36 Diagnosis: NORMAL SINUS RHYTHM NORMAL ECG Confirmed by MD BYERS TAMANNA ([id number]) on 01/21/2025 4:07:25 PM Test Reason : Chest Pain Location : 542 : G52NS G053- Overread By : MD BYERS TAMANNA Edited By : MD BYERS TAMANNA Referred By : PAUL SNOWDEN Acquired by : [id number],CCFRadiology, Radiologist, - 01/21/2025 Ventricular Rate : 89 BPM Atrial Rate : 89 BPM P-R Interval : 132 ms QRS Duration : 82 ms Q-T Interval : 356 ms QTC Calculation(Bazett) : 433 ms Calculated P [place] : 34 degrees Calculated R [place] : 39 degrees Calculated T [place] : 42 degrees NORMAL SINUS RHYTHM NORMAL ECG Confirmed by MD BYERS TAMANNA ([id number]) on 01/21/2025 4:07:25 PM NAME : LOYD BLANDON PID : [id number] : 1955 Gender : Male Race : ORD : [id number] Procedure Date : Dec 10 2024 21:40:00 Edit Date : Jan 21 2025 16:07:36 Diagnosis: NORMAL SINUS RHYTHM NORMAL ECG Confirmed by MD BYERS TAMANNA ([id number]) on 01/21/2025 4:07:25 PM Test Reason : Chest Pain Location : 542 : G52NS G053- Overread By : MD BYERS TAMANNA Edited By : MD BYERS TAMANNA Referred By : PAUL SNOWDEN Acquired by : [id number], NOMS HealthcareVentricular Rate : 93 BPM Atrial Rate : 93 BPM P-R Interval : 102 ms QRS Duration : 74 ms Q-T Interval : 338 ms QTC Calculation(Bazett) : 420 ms Calculated P [place] : 11 degrees Calculated R [place] : 24 degrees Calculated T [place] : 33 degrees SINUS RHYTHM WITH SHORT [place] LOW VOLTAGE QRS, CONSIDER PULMONARY DISEASE, PERICARDIAL EFFUSION, OR NORMAL VARIANT NONSPECIFIC ST ABNORMALITY ABNORMAL ECG Confirmed by MD BYERS TAMANNA ([id number]) on 01/21/2025 4:07:23 PM NAME : LOYD BLANDON PID : [id number] : 1955 Gender : Male Race : ORD : [id number] Procedure Date : Dec 10 2024 18:13:30 Edit Date : Jan 21 2025 16:07:35 Diagnosis: SINUS RHYTHM WITH SHORT [place] LOW VOLTAGE QRS, CONSIDER PULMONARY DISEASE, PERICARDIAL EFFUSION, OR NORMAL VARIANT NONSPECIFIC ST ABNORMALITY ABNORMAL ECG Confirmed by MD BYERS TAMANNA ([id number]) on 01/21/2025 4:07:23 PM Test Reason : [...] QTC Calculation(Bazett) : 420 ms Calculated P [place] : 11 degrees Calculated R [place] : 24 degrees Calculated T [place] : 33 degrees SINUS RHYTHM WITH SHORT [place] LOW VOLTAGE QRS, CONSIDER PULMONARY DISEASE, PERICARDIAL EFFUSION, OR NORMAL VARIANT NONSPECIFIC ST ABNORMALITY ABNORMAL ECG Confirmed by MD BYERS TAMANNA ([id number]) on 01/21/2025 4:07:23 PM NAME : JAMIALOYD PID : [id number] : 1955 Gender : Male Race : ORD : [id number] Procedure Date : Dec 10 2024 18:13:30 Edit Date : Jan 21 2025 16:07:35 Diagnosis: SINUS RHYTHM WITH SHORT [place] LOW VOLTAGE QRS, CONSIDER PULMONARY DISEASE, PERICARDIAL EFFUSION, OR NORMAL VARIANT NONSPECIFIC ST ABNORMALITY ABNORMAL ECG Confirmed by MD BYERS TAMANNA ([id number]) on 01/21/2025 4:07:23 PM Test Reason : [...] QTC Calculation(Bazett) : 445 ms Calculated P [place] : 26 degrees Calculated R [place] : 18 degrees Calculated T [place] : 17 degrees NORMAL SINUS RHYTHM LOW VOLTAGE QRS, CONSIDER PULMONARY DISEASE, PERICARDIAL EFFUSION, OR NORMAL VARIANT BORDERLINE ECG Confirmed by MD YBERS TAMANNA ([id number]) on 01/21/2025 4:07:21 PM NAME : LOYD BLANDON PID : [id number] : 1955 Gender : Male Race : ORD : [id number] Procedure Date : Dec 05 2024 13:16:21 Edit Date : Jan 21 2025 16:07:33 Diagnosis: NORMAL SINUS RHYTHM LOW VOLTAGE QRS, CONSIDER PULMONARY DISEASE, PERICARDIAL EFFUSION, OR NORMAL VARIANT BORDERLINE ECG Confirmed by MD BYERS TAMANNA ([id number]) on 01/21/2025 4:07:21 PM Test Reason : [...] QTC Calculation(Bazett) : 445 ms Calculated P [place] : 26 degrees Calculated R [place] : 18 degrees Calculated T [place] : 17 degrees NORMAL SINUS RHYTHM LOW VOLTAGE QRS, CONSIDER PULMONARY DISEASE, PERICARDIAL EFFUSION, OR NORMAL VARIANT BORDERLINE ECG Confirmed by MD BYERS TAMANNA ([id number]) on 01/21/2025 4:07:21 PM NAME : LOYD BLANDON PID : [id number] : 1955 Gender : Male Race : ORD : [id number] Procedure Date : Dec 05 2024 13:16:21 Edit Date : Jan 21 2025 16:07:33 Diagnosis: NORMAL SINUS RHYTHM LOW VOLTAGE QRS, CONSIDER PULMONARY DISEASE, PERICARDIAL EFFUSION, OR NORMAL VARIANT BORDERLINE ECG Confirmed by MD BYERS TAMANNA ([id number]) on 01/21/2025 4:07:21 PM Test Reason : Chest Pain Location : 86 : G101 G101-01 Overread By : MD BYERS TAMANNA Edited By : MD BYERS TAMANNA Referred By : PAUL SNOWDEN Acquired by : JULIANNE GRIJALVA [facility]ITALBe[facility] 12 leadOrdered By: Radiologist Radiology on [id number] Work Phone: [facility] Work Phone: no Panel InformationOrdered By: Radiologist Radiology on [id number] Work Phone: cbc W Auto Differential panel (Bld)on 01-20-2025 Acanthocytes LM Ql (Bld)FewNormalCTuscarawas HospitalComment on above: Order Comment: Specimen Type: BLOOD SPECIMENOrdering Facility: [facility] Address: [address] [place], [place] [address]Performed By: #### 37296-2 ####[facility]ON[facility] LABORATORYCLIA [id number] [place] [address] [place] OF AMERICAAnisocytosis Ql (Bld)Present [facility] on above:Order Comment: Specimen Type: BLOOD SPECIMENOrdering Facility: [facility] Address: [address] [place], [place] [address]Performed By: #### 76475-0 ####[facility]ON[facility] LABORATORYCLIA [id number] [place] [id number] [place] OF AMERICABasophils (Bld) [#/Vol]0.15 10*3/uLHigh<0.11CTuscarawas Hospital Comment on above:Order Comment: Specimen Type: BLOOD SPECIMENOrdering Facility: [facility] Address: [address] [place], [place] [address]Performed By: #### 30040-9 ####[facility] LABORATORYCLIA [id number] [place] [id number] [place] OF AMERICABasophils/100 WBC (Bld) 1.0 %[facility] on above:Order Comment: Specimen Type: BLOOD SPECIMENOrdering Facility: [facility] Ad dress: [address] [place], [place] [address]Performed By: #### 46936-1 ####[facility] LABORATORYCLIA [id number] [place] [address] [place] AMERICADifferential cell count method Nom (Bld)ManualNormal [facility] on above:Order Comment: Specimen Type: BLOOD SPECIMENOrdering Facility: [facility] Address: [address] [place], [place] [address]Performed By: #### 40198-2 ####KARINA LABORATORYCLIA [id number] [place] [address] [place] AMERICAEosinophils (Bld) [#/Vol]0.15 10*3/uLNormal<0.46[facility] on above:Order Comment: Specimen Type: BLOOD SPECIMENOrdering Facility: [facility] Address: [address] [place], [place] [address]Performed By: #### 25419-9 ####KARINA LABORATORYCLIA [id number] [place] [address] [place]I Eosinophils/100 WBC (Bld)1.0 %NormalAvita Health System [facility] on above: Order Comment: Specimen Type: BLOOD SPECIMENOrdering Facility: [facility] Address: [address] [place], [place] [address]Performed By: #### 93806-7 ####KARINA LABORATORYCLIA [id number] [place] [address] [place] AMERICAErythrocyte distribution width (RBC) [Ratio]19.9 %High11.5-15.0[facility] on above: Order Comment: Specimen Type: BLOOD SPECIMENOrdering Facility: [facility] Address: [address] [place], [place] [address]Performed By: #### 77515-3 ####KARINA LABORATORYCLIA [id number] [place] [address] [place] AMERICAHematocrit (Bld) [Volume fraction]25.6 %Low39.0-51.0[facility] on above:Order Comment: Specimen Type: BLOOD SPECIMENOrdering Facility: [facility] Address: [address] [place], [place] [address]Performed By: #### 91180-7 ####KARNIA LABORATORYCLIA [id number] [place] [id number] [place] AMERICAHemoglobin (Bld) [Mass/Vol]8.1 g/dLLow13.0-17.0 [facility] on above:Order Comment: Specimen Type: BLOOD SPECIMENOrdering Facility: [facility] Address: [address] [place], [place] [address]Performed By: #### 96364-7 ####KARINA LABORATORYCLIA [id number] [place] [address] [place] AMERICALymphocytes (Bld) [#/Vol]0.91 10*3/uLLow1.00-4.00[facility] on above:Order Comment: Specimen Type: BLOOD SPECIMENOrdering Facility: [facility] Address: [address] [place], [place] [address]Performed By: #### 51445-3 ####KARINA LABORATORYCLIA [id number] [place] [id number] [place] Lymphocytes/100 WBC (Bld)6.0 %NormalAvita Health System Bu[facility] on above: Order Comment: Specimen Type: BLOOD SPECIMENOrdering Facility: [facility] Address: [address] [place], [place] [address]Performed By: #### 41197-5 ####KARINA LABORATORYCLIA [id number] [place] [id number] [place] OF AMERICAMCH (RBC) [Entitic mass]32.4 nlGfpris83.0-34.0[facility] on above:Order Comment: Specimen Type: BLOOD SPECIMENOrdering Facility: [facility] Address: [address] [place], [place] [address]Performed By: #### 00531-0 ####KARINA LABORATORYCLIA [id number] [place] [id number] UNITED [facility] MEDICAL CENTERMCHC (RBC) [Mass/Vol]31.6 g/gRUuzqgn10.5-36.[address] [facility] CenterComsheridan community hospital on above:Order Comment: Specimen Type: BLOOD SPECIMENOrdering Facility: [facility] Address: [address] [place], [place] [address]Performed By: #### 37085-4 ####KARINA LABORATORYCLIA [id number] [place] [address] UNITED [facility] RO[facility]IAL HOSPITALMCV (RBC) [Entitic vol]102.4 oTGjdb79.0-100.0[facility] Comment on above:Order Comment: Specimen Type: BLOOD SPECIMENOrdering Facility: [facility] Address: [address] [place], [place] [address]Performed By: #### 09876-1 ####KARINA LABORATORYCLIA [id number] [place] [address] [place] AMERICAMetamyelocytes/100 WBC (Bld)1.0 %[facility] HospitalComsheridan community hospital on above:Order Comment: Specimen Type: BLOOD SPECIMENOrdering Facility: [facility] Address: [address] [place], [place] [address]Performed By: #### 46915-1 ####KARINA LABORATORYCLIA [id number] [place] [address] [place] AMERICAMonocytes (Bld) [#/Vol]0.30 10*3/uLNormal<0.[address] [facility] Medical CenterComment on above:Order Comment: Specimen Type: BLOOD SPECIMENOrdering Facility: [facility] Address: [address] [place], [place] [address]Performed By: #### 62417-7 ####KARINA LABORATORYCLIA [id number] [place] [address] [place] AMERICAMonocytes/100 WBC (Bld)2.0 %[facility] on above:Order Comment: Specimen Type: BLOOD SPECIMENOrdering Facility: [facility] Address: [address] [place] [address] Performed By: #### 49821-7 ####KARINA LABORATORYCLIA [id number] [place] [address] [place] AMERICANeutrophils (Bld) [#/Vol]13.47 10*3/uLHigh1.45-7.50[facility] Medical CenterComment on above:Order Comment: Specimen Type: BLOOD SPECIMENOrdering Facility: [facility] Address: [address] [place], [place] [address]Performed By: #### 48303-4 ####KARINA LABORATORYCLIA [id number] [place] [id number] [place] AMERICANeutrophils/100 WBC (Bld)89.0 %NormalAv[facility] Health System [facility] on above:Order Comment: Specimen Type: BLOOD SPECIMENOrdering Facility: [facility] Address: [address] [place], [place] [address]Performed By: #### 08637-9 ####KARINA LABORATORYCLIA [id number] [place] [address] [place] AMERICANucleated RBC (Bld) [#/Vol]10*3/uLNormal<0.01[facility] Comment on above:Order Comment: Specimen Type: BLOOD SPECIMENOrdering Facility: [facility] Address: [address] [place], [place] [address]Performed By: #### 67016-3 ####KARINA LABORATORYCLIA [id number] [place] [id number] [place] AMERICANucleated RBC/100 WBC (Bld) [Ratio]0.0 /100 WBCNormalCTrinity Health System [facility] Campus on above:Order Comment: Specimen Type: BLOOD SPECIMENOrdering Facility: [facility] Address: [address] [place], [place] [address]Performed By: #### 44319-6 ####KARINA LABORATORYCLIA [id number] [place] [id number] [place] AMERICAOvalocytes LM Ql (Bld)FewNormalCleveland Clinic ClevelandComment on above:Order Comment: Specimen Type: BLOOD SPECIMENOrdering Facility: [facility] Address: [address] [place], [place] [address]Performed By: #### 73951-9 ####KARINA LABORATORYCLIA [id number] [place] [address] [place] AMERICAPlatelet mean volume (Bld) [Entitic vol]10.6 fLNormal9.0-12.7ClevelLouis Stokes [facility] Clegalion hospitalComsheridan community hospital on above:Order Comment: Specimen Type: BLOOD SPECIMENOrdering Facility: [facility] Address: [address] [place], [place] [address]Performed By: #### 15349-9 ####KARINA LABORATORYCLIA [id number] [place] [address] [place] AMERICAPlatelets (Bld) [#/Vol]237 10*3/wLAxhbee126-578DmlppllvjMercy Health St. [facility] Comment on above:Order Comment: Specimen Type: BLOOD SPECIMENOrdering Facility: [facility] Address: [address] [place], [place] [address]Performed By: #### 79941-0 ####KARINA LABORATORYCLIA [id number] [place] [address] [place] AMERICAPlatelets Estimate (Bld) [#/Vol]AdequateNormalCleveland [facility] HospitalvelandComsheridan community hospital on above:Order Comment: Specimen Type: BLOOD SPECIMENOrdering Facility: [facility] Address: [address] [place], [place] [address]Performed By: #### 36903-8 ####KARINA LABORATORYCLIA [id number] [place] [id number] [place] AMERICAPolychromasia LM Ql (Bld)SlightNormalCleveland Formerly Vidant Duplin HospitalComment on above:Order Comment: Specimen Type: BLOOD SPECIMENOrdering Facility: [facility] Address: [address] [place], [place] [address]Performed By: #### 76153-7 ####KARINA LABORATORYCLIA [id number] [place] [id number] [place] AMERICARBC (Bld) [#/Vol]2.50 10*6/uLLow4.20-6.00[facility] Comment on above:Order Comment: Specimen Type: BLOOD SPECIMENOrdering Facility: [facility] Address: [address] [place], [place] [address]Performed By: #### 71146-9 ####KARINA LABORATORYCLIA [id number] [place] [address] [place] AMERICARED CELL MORPHReviewed: see results of individual morphologiesNoSelect Medical Specialty Hospital - Columbus SouthComsheridan community hospital on above:Order Comment: Specimen Type: BLOOD SPECIMENOrdering Facility: [facility] Address: [address] [place] [address] Performed By: #### 30577-9 ####KARINA LABORATORYCLIA [id number] [place] [address] [place] AMERICAWBC (Bld) [#/Vol]15.14 10*3/uL High3.70-11.00[facility] Vincent Medical CenterComment on above:Order Comment: Specimen Type: BLOOD SPECIMENOrdering Facility: [facility] Ad dress: [address] [place], [place] [address]Performed By: #### 17162-5 ####KARINA LABORATORYCLIA [id number] [place] [address] [place] AMERICAWBC Left Shift Ql (Bld)PresentNoSelect Medical Specialty Hospital - Columbus SouthComment on above:Order Comment: Specimen Type: BLOOD SPECIMENOrdering Facility: [facility] Address: [address] [place], [place] [address]Performed By: #### 49780-5 ####KARINA LABORATORYCLIA [id number] [place] [address] [place] AMERICACCF CBC W AUTO DIFF BLDon 39-71-8432Vqhdzrrqz/100 WBC (Bld)1 %NOMS HealthcareCCF ACANTHOCYTES BLD QL SMEARFewNOSD HealthcareCCF ANISOCYTOSISPresentNOMS HealthcareCCF BASOPHILS # BLD AUTO0.15HighNINFGeneral Leonard Wood Army Community HospitalCCF DIFFERENTIAL METHOD BLDManualNOMadison Medical CenterCCF EOSINOPHIL # BLD AUTO0.15NINFNOMadison Medical Center CCF LYMPHOCYTES # BLD AUTO0.91LowMid Missouri Mental Health CenterF META%1 %[facility] CenterF MONOCYTES # BLD AUTO0.3NINFMid Missouri Mental Health CenterF NEUTROPHILS # BLD AUTO13.47High [facility] CenterF NRBC # BLD AUTO<0.01NIErlanger Health System NRBC/100 WBC BLD-RTO0/100 WBCFreeman Neosho Hospital OVALOCYTES BLD QL SMEARFewMid Missouri Mental Health CenterF PLATELET # BLD BTUP827DGFLFreeman Neosho Hospital PMV BLD AUTO10.6 fL9.0 - 12.7 fLFreeman Neosho Hospital POLYCHROMASIA BLD QL SMEARSlightFreeman Neosho Hospital RED CELL MORPH Reviewed: see results of individual morphologiesFreeman Neosho Hospital WBC # BLD AUTO15.14HighFreeman Neosho Hospital WBC LEFT SHIFT BLD QL AUTOPresentGeneral Leonard Wood Army Community Hospital Eosinophils/100 WBC (Bld)1 %[facility] HospitalErythrocyte distribution width (RBC) [Ratio]19.9 %High11.5 - 15.0 %[facility] HospitalHematocrit (Bld) [Volume fraction] 25.6 %Low39.0 - 51.0 %[facility] HospitalHemoglobin (Bld) [Mass/Vol]8.1 g/dLLow13.0 - 17.0 g/dLGeneral Leonard Wood Army Community HospitalInterpretation and review of laboratory results AbnormalGeneral Leonard Wood Army Community HospitalLymphocytes/100 WBC (Bld)6 %[facility] CenterH (RBC) [Entitic mass]32.4 pg26.0 - 34.0 pgNevada Regional Medical CenterHC (RBC) [Mass/Vol]31.6 g/dL 30.5 - 36.0 g/dLNevada Regional Medical CenterV (RBC) [Entitic vol]102.4 jTWcuc77.0 - 100.0 fLGeneral Leonard Wood Army Community HospitalMonocytes/100 WBC (Bld)2 %[facility] HospitalNeutrophils/100 WBC (Bld)89 %[facility] HealthcarePLATELET # BLD ESTAdequateNOMadison Medical CenterRBC (Bld) [#/Vol]2.5 10*6/uLLow4.20 - 6.00 m/uLHEBER VALLEY MEDICAL CENTER HealthcareSpecimen Type: BLOOD SPECIMEN [facility] Address: [address] [place] [address] Original Ordering Provider: DAVID BEYER [facility] SerPLancaster General Hospital on 07-93-6866DNL [Mass/Vol]17.1 mg/dLHigh<0.9CTrinity Health System [facility] on above:Order Comment: Specimen Type: BLOOD SPECIMENOrdering Facility: [facility] Address: [address] [place] [address] Performed By: #### 1988-5 ####KARINA LABORATORYCLIA [id number] [place] [id number] [place] AMERICACYTOMEGALOVIRUS (CMV) DNA, QUANTITATIVE PCR, PLASMAon 51-94-7492HMK DNA JESSICA+probe Qn (P)Not detectedNormal Not DetectedAvita Health System [facility] on above:Order Comment: Specimen Type: BLOOD SPECIMENOrdering Facility: [facility] Ad dress: [address] [place], [place] [id number] By: #### CMVQNT ####[facility] LABCLIA [id number] [facility]LES [id number] [place] [address] [place] AMERICAComprehensive metabolic 2000 panelon 03-72-0475Aggqrmi [Mass/Vol]2.9 g/dLLow3.9-4.9ClevelCarteret Health Care Comment on above:Order Comment: Specimen Type: BLOOD SPECIMENOrdering Facility: [facility] Address: [address] [place], [place] [address]Performed By: #### 00955-2 ####KARINA LABORATORYCLIA [id number] [place] [id number] [place] AMERICAALP [Catalytic activity/Vol]245 U/PFfvb14-470TwdwtndpwAvita Health System [facility] on above:Order Comment: Specimen Type: BLOOD SPECIMENOrdering Facility: [facility] Address: [address] [place], [place] [address]Performed By: #### 32836-0 ####DEONTHE SURGICAL H[facility]PITAL AT S[facility]ODS LABORATORYCLIA [id number] [place] [address] [place] AMERICAALT [Catalytic activity/Vol]21 U/FJeyuxf03-52 [facility] on above:Order Comment: Specimen Type: BLOOD SPECIMENOrdering Facility: [facility] Address: [address] [place], [place] [address]Performed By: #### 18947-9 ####KARINA LABORATORYCLIA [id number] [place] [id number] [place] AMERICAAnion gap [Moles/Vol]9 mmol/LNormal8-15[facility] Medical CenterComsheridan community hospital on above:Order Comment: Specimen Type: BLOOD SPECIMENOrdering Facility: [facility] Address: [address] [place] [address] Performed By: #### 83555-8 ####KARINA LABORATORYCLIA [id number] [place] [id number] [place] AMERICAAST [Catalytic activity/Vol]27 U/SGmysnc19-94HcogultamMercy Health St. Vincent Medical CenterComment on above:Order Comment: Specimen Type: BLOOD SPECIMENOrdering Facility: [facility] Ad dress: [address] [place], [place] [address]Performed By: #### 64418-6 ####KARINA LABORATORYCLIA [id number] [place] [id number] [place] AMERICABilirubin [Mass/Vol]0.3 mg/dLNormal0.2-1.3CTuscarawas HospitalComsheridan community hospital on above:Order Comment: Specimen Type: BLOOD SPECIMENOrdering Facility: [facility] Address: [address] [place], [place] [address]Performed By: #### 43619-6 ####KARINA LABORATORYCLIA [id number] [place] [id number] [place] AMERICACalcium [Mass/Vol]8.7 mg/dLNormal8.5-10.2CTuscarawas Hospital Comment on above:Order Comment: Specimen Type: BLOOD SPECIMENOrdering Facility: [facility] Address: [address] [place], [place] [address]Performed By: #### 46692-8 ####KARINA LABORATORYCLIA [id number] [place] [id number] [place] AMERICAChloride [Moles/Vol]97 mmol/ZPjn51-750RgizgtquvAvita Health System Bucy[facility] Hospital on above:Order Comment: Specimen Type: BLOOD SPECIMENOrdering Facility: [facility] Address: [address] [place], [place] [address]Performed By: #### 07426-7 ####DEONROLF LABORATORYCLIA [id number] [place] [id number] [place] OF AMERICACO2 [Moles/Vol]23 mmol/LTbxmxz23-13RgbczyfptAvita Health System [facility] on above:Order Comment: Specimen Type: BLOOD SPECIMENOrdering Facility: [facility] Address: [address] [place], [place] [address]Performed By: #### 04531-2 ####KARINA LABORATORYCLIA [id number] [place] [address] [place] AMERICACreatinine [Mass/Vol]0.97 mg/dLNormal0.73-1.22[facility] Comment on above:Order Comment: Specimen Type: BLOOD SPECIMENOrdering Facility: [facility] Address: [address] [place], [place] [address]Performed By: #### 27922-8 ####DEONROLF LABORATORYCLIA [id number] [place] [address] [place] AMERICAeGFRcr SerPlBld CKD-EPI 291839 mL/min/1.73m???Normal>=60[facility] on above: Order Comment: Specimen Type: BLOOD SPECIMENOrdering Facility: [facility] Address: [address] [place], [place] [address]Result Comment: Estimated Glomerular Filtration Rate (eGFR) is calculated using the 2020 CKD-EPI creatinine equation. This equation utilizes serum creatinine, sex, and age as parameters. The creatinine assay has traceable calibration to isotope dilution-mass spectrometry. Refer to KDIGO guidelines for clinical interpretation. In patients with unstable renal function, e.g. those with acute kidney injury, the eGFR may not accurately reflect actual GFR.Performed By: #### 24666-2 ####KARINA LABORATORYCLIA [id number] [place] [address] [place] AMERICAGlucose [Mass/Vol]89 mg/mLGsokju40-28XgqmbfskgAvita Health System Bu[facility] on above:Order Comment: Specimen Type: BLOOD SPECIMENOrdering Facility: [facility] Address: [address] [place], [place] [address]Result Comment: The [place] Diabetes Association (ADA) provides guidance for cutoff [...] Standards of Medical Care in Diabetes 2016, [place] [employer]. Diabetes Care. 2016.39(Suppl 1). Performed By: #### 04914-9 ####KARINA LABORATORYCLIA [id number] [place] [address] [place] AMERICAPotassium [Moles/Vol]5.3 mmol/LHigh3.7-5.1CTrinity Health System [facility] on above:Order Comment: Specimen Type: BLOOD SPECIMENOrdering Facility: [facility] Address: [address] [place], [place] [address]Performed By: #### 39189-5 ####KARINA LABORATORYCLIA [id number] [place] [id number] [place] AMERICAProtein [Mass/Vol]6.0 g/dLLow6.3-8.0[facility] on above:Order Comment: Specimen Type: BLOOD SPECIMENOrdering Facility: [facility] Address: [address] [place], [place] [address]Performed By: #### 02917-6 ####KARINA LABORATORYCLIA [id number] [place] [address] [place] AMERICASodium [Moles/Vol]129 mmol/XJfe790-416BpshdhkfpAvita Health System Bu[facility] on above:Order Comment: Specimen Type: BLOOD SPECIMENOrdering Facility: [facility] Address: [address] [address] Performed By: #### 77457-9 ####KARINA LABORATORYCLIA [id number] [place] [id number] [place] AMERICAUrea nitrogen [Mass/Vol]21 mg/dLNormal9-[facility] on above:Order Comment: Specimen Type: BLOOD SPECIMENOrdering Facility: [facility] Address: [address] [place], [place] [address]Performed By: #### 70915-0 ####KARINA LABORATORYCLIA [id number] [place] [id number] [place] OF AMERICAECG 12 leadon 59-58-5629Rrcymzyflir Rate : 110 BPM Atrial Rate : 110 BPM P-R Interval : 126 ms QRS Duration : 72 ms Q-T Interval : 346 ms QTC Calculation(Bazett) : 468 ms Calculated P [place] : 22 degrees Calculated R [place] : 27 degrees Calculated T [place] : 26 degrees SINUS TACHYCARDIA LOW VOLTAGE QRS, CONSIDER PULMONARY DISEASE, PERICARDIAL EFFUSION, OR NORMAL VARIANT BORDERLINE ECG Confirmed by ASHLEIGH MELENDEZ MD ([id number]) on 01/20/2025 10:55:23 PM NAME : LOYD BLANDON PID : [id number] : 1955 Gender : Male Race : ORD : [id number] Procedure Date : Nov 22 2024 02:09:31 Edit Date : Jan 20 2025 22:55:25 Diagnosis: SINUS TACHYCARDIA LOW VOLTAGE QRS, CONSIDER PULMONARY DISEASE, PERICARDIAL EFFUSION, OR NORMAL VARIANT BORDERLINE ECG Confirmed by ASHLEIGH MELENDEZ MD ([id number]) on 01/20/2025 10:55:23 PM Test Reason : Arrhythmia Location : 86 : G101 [id number] Overread By : ASHLEIGH MELENDEZ MD Edited By : ASHLEIGH MELENDEZ MD Referred By : PAUL SNOWDEN Acquired by : CROW CONNFRadiology, Radiologist, - 01/20/2025 Ventricular Rate : 110 BPM Atrial Rate : 110 BPM P-R Interval : 126 ms QRS Duration : 72 ms Q-T Interval : 346 ms QTC Calculation(Bazett) : 468 ms Calculated P [place] : 22 degrees Calculated R [place] : 27 degrees Calculated T [place] : 26 degrees SINUS TACHYCARDIA LOW VOLTAGE QRS, CONSIDER PULMONARY DISEASE, PERICARDIAL EFFUSION, OR NORMAL VARIANT BORDERLINE ECG Confirmed by ASHLEIGH MELENDEZ MD ([id number]) on 01/20/2025 10:55:23 PM NAME : LOYD BLANDON PID : [id number] : 1955 Gender : Male Race : ORD : [id number] Procedure Date : Nov 22 2024 02:09:31 Edit Date : Jan 20 2025 22:55:25 Diagnosis: SINUS TACHYCARDIA LOW VOLTAGE QRS, CONSIDER PULMONARY DISEASE, PERICARDIAL EFFUSION, OR NORMAL VARIANT BORDERLINE ECG Confirmed by AHSLEIGH MELENDEZ MD ([id number]) on 01/20/2025 10:55:23 PM Test Reason : Arrhythmia Location : 86 : G101 [id number] Overread By : ASHLEIGH MELENDEZ MD Edited By : ASHLEIGH MELENDEZ MD Referred By : PAUL SNOWDEN Acquired by : SUKHI CONN [facility] 12 leadOrdered By: Radiologist Radiology on 49-03-4551AQTM [employer] Work Phone: GGT SerPl-cCncon 32-07-2207Shdpa glutamyl transferase [Catalytic activity/Vol]133 U/WJocq43-09LaduofzgoAvita Health System Bu[facility] on above:Order Comment: Specimen Type: BLOOD SPECIMENOrdering Facility: [facility] Address: [address] [place] [address] Performed By: #### 2324-2 ####[facility] LABCLIA [id number] [place] [address] [place] Magnesium SerPl-mCncon 43-82-7136Rhsflvidv [Mass/Vol]1.6 mg/dLLow1.7-2.3 [facility] on above:Order Comment: Specimen Type: BLOOD SPECIMENOrdering Facility: [facility] Address: [address] [place], [place] [address]Performed By: #### 06978-8 ####[facility]ON[facility] LABORATORYCLIA [id number] [place] [address] [place] AMERICANT-proBNP SerPl-mCncon 79-22-1028Kxjrggrykla peptide.B prohormone N- Terminal [Mass/Vol]616 pg/mLHigh<125[facility] Medical CenterComsheridan community hospital on above: Order Comment: Specimen Type: BLOOD SPECIMENOrdering Facility: [facility] Address: [address] [place], [place] [address]Performed By: #### 74122-5 ####KARINA LABORATORYCLIA [id number] [place] [address] [place] AMERICAPhosphate SerPl-mCncon 58-18-6893Cvlhlnegv [Mass/Vol]4.1 mg/dLNormal2.7-4.8CTuscarawas Hospital Comment on above:Order Comment: Specimen Type: BLOOD SPECIMENOrdering Facility: [facility] Address: [address] [place], [place] [address]Performed By: #### 2777-1 ####[facility]ONTHE [facility] LABORATORYCLIA [id number] [address] STATES OF SYCAMORE MEDICAL CENTERTacrolimus Bld-nc 66-86-5706Xcfeobrcip (Bld) [Mass/Vol]8.6 ng/mLNormal5.0-20.0[facility] Medical CenterComsheridan community hospital on above:Order Comment: Specimen Type: BLOOD SPECIMENOrdering Facility: [facility] Address: [address] [place], [place] [address]Result Comment: Individualized target levels for a given [...] situation. Test performed by chemiluminescent immunoassay using Pairin Alinity i.Performed By: #### 27757-4 ####[facility] LABCLIA [id number] [facility] [place] [address] [place] AMERICACBC W Auto Differential panel (Bld)on 30-74-9265Okljpdcgpmln Ql (Bld)PresentNormalCTuscarawas Hospital Comment on above:Order Comment: Specimen Type: BLOOD SPECIMENOrdering Facility: [facility] Address: [address] [place], [place] [address]Performed By: #### 27400-8 ####KARINA LABORATORYCLIA [id number] [place] [address] [place] AMERICABasophils (Bld) [#/Vol] 0.00 10*3/uLNormal<0.11CTuscarawas HospitalComsheridan community hospital on above:Order Comment: Specimen Type: BLOOD SPECIMENOrdering Facility: [facility] Address: [address] [place], [place] [address]Performed By: #### 12459-0 ####KARINA LABORATORYCLIA [id number] [place] [id number] [place] AMERICABasophils/100 WBC (Bld)0.0 %NormalMercy Health St. Vincent Medical CenterComment on above:Order Comment: Specimen Type: BLOOD SPECIMENOrdering Facility: [facility] Address: [address] [place], [place] [address]Performed By: #### 18794-3 ####KARINA LABORATORYCLIA [id number] [place] [address] [place] AMERICADifferential cell count method Nom (Bld)ManualNormalCTuscarawas HospitalComsheridan community hospital on above:Order Comment: Specimen Type: BLOOD SPECIMENOrdering Facility: [facility] Address: [address] [place], [place] [address]Performed By: #### 23838-4 ####KARINA LABORATORYCLIA [id number] [place] [address] [place] Eosinophils (Bld) [#/Vol]0.22 10*3/uLNormal<0.46[facility] Comment on above:Order Comment: Specimen Type: BLOOD SPECIMENOrdering Facility: [facility] Address: [address] [place], [place] [address]Performed By: #### 82727-5 ####KARINA LABORATORYCLIA [id number] [place] [id number] [place] AMERICAEosinophils/100 WBC (Bld)2.0 %NormalAvita Health System [facility] on above:Order Comment: Specimen Type: BLOOD SPECIMENOrdering Facility: [facility] Address: [address] [place], [place] [address]Performed By: #### 58123-0 ####KARINA LABORATORYCLIA [id number] [place] [address] [place] AMERICAErythrocyte distribution width (RBC) [Ratio] 19.9 %High11.5-15.0[facility] on above:Order Comment: Specimen Type: BLOOD SPECIMENOrdering Facility: [facility] Address: [address] [place], [place] [address]Performed By: #### 35053-2 ####KARINA LABORATORYCLIA [id number] [place] [address] [place] AMERICAHematocrit (Bld) [Volume fraction]24.2 %Low 39.0-51.0[facility] on above:Order Comment: Specimen Type: BLOOD SPECIMENOrdering Facility: [facility] Ad dress: [address] [place], [place] [address]Performed By: #### 38589-9 ####KARINA LABORATORYCLIA [id number] [place] [id number] [place] AMERICAHemoglobin (Bld) [Mass/Vol]7.6 g/dLLow13.0-17.0[facility] on above:Order Comment: Specimen Type: BLOOD SPECIMENOrdering Facility: [facility] Address: [address] [place], [place] [address]Performed By: #### 34569-1 ####KARINA LABORATORYCLIA [id number] [place] [id number] [place] AMERICALymphocytes (Bld) [#/Vol]0.56 10*3/uLLow1.00-4.00[facility] on above:Order Comment: Specimen Type: BLOOD SPECIMENOrdering Facility: [facility] Address: [address] [place], [place] [address]Performed By: #### 90784-0 ####KARINA LABORATORYCLIA [id number] [place] [address] [place] Lymphocytes/100 WBC (Bld)3.0 %NormalAvita Health System [facility] on above: Order Comment: Specimen Type: BLOOD SPECIMENOrdering Facility: [facility] Address: [address] [place], [place] [address]Performed By: #### 03108-1 ####KARINA LABORATORYCLIA [id number] [address] (RBC) [Entitic mass]31.4 cyPhkgby46.0-34.0[facility] on above:Order Comment: Specimen Type: BLOOD SPECIMENOrdering Facility: [facility] Address: [address] [place], [place] [address]Performed By: #### 14979-4 ####KARINA LABORATORYCLIA [id number] [address] (RBC) [Mass/Vol]31.4 g/pJNstshd23.5-36.0 [facility] on above:Order Comment: Specimen Type: BLOOD SPECIMENOrdering Facility: [facility] Address: [address] [place], [place] [address]Performed By: #### 69598-5 ####KARINA LABORATORYCLIA [id number] [address] (RBC) [Entitic vol]100.0 rPNczrcb18.0-100.0[facility] on above:Order Comment: Specimen Type: BLOOD SPECIMENOrdering Facility: [facility] Address: [address] [place], [place] [address]Performed By: #### 71363-3 ####KARINA LABORATORYCLIA [id number] [address] STATES [facility] Metamyelocytes/100 WBC (Bld)2.0 %NormalAvita Health System [facility] on above:Order Comment: Specimen Type: BLOOD SPECIMENOrdering Facility: [facility] Address: [address] [place] [address] Performed By: #### 75773-6 ####KARINA LABORATORYCLIA [id number] [place] [id number] [place] AMERICAMonocytes (Bld) [#/Vol]0.89 10*3/uLHigh<0.87[facility] on above:Order Comment: Specimen Type: BLOOD SPECIMENOrdering Facility: [facility] Address: [address] [place], [place] [address]Performed By: #### 99679-9 ####KARINA LABORATORYCLIA [id number] [place] [id number] [place] AMERICAMonocytes/100 WBC (Bld)8.0 %NormalAvita Health System [facility] on above:Order Comment: Specimen Type: BLOOD SPECIMENOrdering Facility: [facility] Address: [address] [place], [place] [address]Performed By: #### 83149-9 ####KARINA LABORATORYCLIA [id number] [place] [address] [place] AMERICANeutrophils (Bld) [#/Vol]9.25 10*3/uLHigh1.45-7.50[facility] on above:Order Comment: Specimen Type: BLOOD SPECIMENOrdering Facility: [facility] Address: [address] [place], [place] [address]Performed By: #### 47065-4 ####KARINA LABORATORYCLIA [id number] [place] [id number] [place] Neutrophils/100 WBC (Bld)83.0 %NormalAvita Health System [facility] on above: Order Comment: Specimen Type: BLOOD SPECIMENOrdering Facility: [facility] Address: [address] [place], [place] [address]Performed By: #### 48645-2 ####KARINA LABORATORYCLIA [id number] [place] [id number] [place] AMERICANucleated RBC (Bld) [#/Vol] 10*3/uLNormal<0.01[facility] on above:Order Comment: Specimen Type: BLOOD SPECIMENOrdering Facility: [facility] Address: [address] [place], [place] [address]Performed By: #### 52418-6 ####KARINA LABORATORYCLIA [id number] [place] [address] [place] AMERICANucleated RBC/100 WBC (Bld) [Ratio]0.0 /100 WBCNormalCTrinity Health System [facility] Campus on above:Order Comment: Specimen Type: BLOOD SPECIMENOrdering Facility: [facility] Ad dress: [address] [place], [place] [address]Performed By: #### 80209-4 ####KARINA LABORATORYCLIA [id number] [place] [address] [place] AMERICAOvalocytes LM Ql (Bld)FewNoalCTrinity Health System East Campus on above:Order Comment: Specimen Type: BLOOD SPECIMENOrdering Facility: [facility] Address: [address] [place], [place] [address]Performed By: #### 67780-1 ####KARINA LABORATORYCLIA [id number] [place] [address] [place] Platelet mean volume (Bld) [Entitic vol]10.3 fLNormal9.0-12.7CTrinity Health System [facility] on above:Order Comment: Specimen Type: BLOOD SPECIMENOrdering Facility: [facility] Address: [address] [place], [place] [address]Performed By: #### 02355-0 ####KARINA LABORATORYCLIA [id number] [place] [address] [place] Platelets (Bld) [#/Vol]278 10*3/xBWnxkym849-960AsnjpoaidAvita Health System [facility] on above:Order Comment: Specimen Type: BLOOD SPECIMENOrdering Facility: [facility] Address: [address] [place] [address] Performed By: #### 45213-0 ####KARINA LABORATORYCLIA [id number] [place] [address] [place] AMERICAPlatelets Estimate (Bld) [#/Vol]AdequateNormalCTrinity Health System [facility] on above:Order Comment: Specimen Type: BLOOD SPECIMENOrdering Facility: [facility] Address: [address] [place], [place] [address]Performed By: #### 17298-5 ####KARINA LABORATORYCLIA [id number] [place] [id number] [place] AMERICAPolychromasia LM Ql (Bld)SlightNoalCTrinity Health System East Campus on above:Order Comment: Specimen Type: BLOOD SPECIMENOrdering Facility: [facility] Address: [address] [place], [place] [address]Performed By: #### 32090-8 ####KARINA LABORATORYCLIA [id number] [place] [address] [place] AMERICARBC (Bld) [#/Vol]2.42 10*6/uLLow4.20-6.00[facility] Comment on above:Order Comment: Specimen Type: BLOOD SPECIMENOrdering Facility: [facility] Address: [address] [place], [place] [address]Performed By: #### 25109-7 ####KARINA LABORATORYCLIA [id number] [place] [address] [place] AMERICARED CELL MORPHReviewed: see results of individual morphologiesBlanchard Valley [facility] on above:Order Comment: Specimen Type: BLOOD SPECIMENOrdering Facility: [facility] Address: [address] [place] [address] Performed By: #### 94418-7 ####KARINA LABORATORYCLIA [id number] [place] [id number] [place] AMERICAVariant lymphocytes/100 WBC (Bld)2.0 %NormalAvita Health System [facility] on above:Order Comment: Specimen Type: BLOOD SPECIMENOrdering Facility: [facility] Address: [address] [place], [place] [address]Performed By: #### 89746-5 ####KARINA LABORATORYCLIA [id number] [place] [id number] [place] AMERICAWBC (Bld) [#/Vol]11.14 10*3/uLHigh3.70-11.[address] [facility] Medical CenterComment on above:Order Comment: Specimen Type: BLOOD SPECIMENOrdering Facility: [facility] Address: [address] [place], [place] [address]Performed By: #### 72732-8 ####KARINA LABORATORYCLIA [id number] [place] [address] [place] AMERICAWBC Left Shift Ql (Bld)PresentNormalCleveland Formerly Vidant Duplin HospitalComment on above:Order Comment: Specimen Type: BLOOD SPECIMENOrdering Facility: [facility] Address: [address] [place] [address] Performed By: #### 01349-6 ####KARINA LABORATORYCLIA [id number] [place] [address] [place] [facility] CENTERCC NT-PROBNP [facility] HOSPITALon 04-34-1746Ssrlrugnosyxvo and review of laboratory resultsAbMunising Memorial Hospital Natriuretic peptide B (Bld) [Mass/Vol]1165 pg/mLHighNINF - 125 pg/mLNOMS HealthcareSpecimen Type: BLOOD SPECIMEN [facility] Address: [address] [place] [address] Original Ordering Provider: DAVID BRAVOCanonsburg [facility] on 20-35-7149XSL [Mass/Vol]21.9 mg/dLHigh<0.9ClevelCarteret Health CareComsheridan community hospital on above:Order Comment: Specimen Type: BLOOD SPECIMENOrdering Facility: [facility] Address: [address] [address] Performed By: #### 1988-5 ####KARINA LABORATORYCLIA [id number] [place] [id number] [place] AMERICAComprehensive metabolic 2000 panelon 21-05-7102Xpqlbsf [Mass/Vol]2.7 g/dLLow3.9-4.9CTuscarawas Hospital Comment on above:Order Comment: Specimen Type: BLOOD SPECIMENOrdering Facility: [facility] Address: [address] [place], [place] [address]Performed By: #### 47843-1 ####KARINA LABORATORYCLIA [id number] [place] [address] [place] AMERICAALP [Catalytic activity/Vol]293 U/CAkoh43-405YvmbpzfejAvita Health System [facility] on above:Order Comment: Specimen Type: BLOOD SPECIMENOrdering Facility: [facility] Address: [address] [place] [address]Reswupigz By: #### 52896-2 ####KARINA LABORATORYCLIA [id number] [place] [address] [place] AMERICAALT [Catalytic activity/Vol]26 U/PByziao49-66 [facility] on above:Order Comment: Specimen Type: BLOOD SPECIMENOrdering Facility: [facility] Address: [address] [place], [place] [address]Performed By: #### 99952-0 ####KARINA LABORATORYCLIA [id number] [place] [address] [place] AMERICAAnion gap [Moles/Vol]9 mmol/LNormal8-15[facility] on above:Order Comment: Specimen Type: BLOOD SPECIMENOrdering Facility: [facility] Address: [address] [place] [address] Performed By: #### 06430-9 ####KARINA LABORATORYCLIA [id number] [place] [address] [place] AMERICAAST [Catalytic activity/Vol]28 U/RKwaswk03-20TnoznislyAvita Health System [facility] on above:Order Comment: Specimen Type: BLOOD SPECIMENOrdering Facility: [facility] Ad dress: [address] [place] [address]Xbpboyory By: #### 83772-2 ####KARINA LABORATORYCLIA [id number] [place] [address] [place] AMERICABilirubin [Mass/Vol]0.3 mg/dLNormal0.2-1.3CTrinity Health System [facility] on above:Order Comment: Specimen Type: BLOOD SPECIMENOrdering Facility: [facility] Address: [address] [place] [address]Kytjbbtdp By: #### 32136-8 ####KARINA LABORATORYCLIA [id number] [place] [id number] [place] AMERICACalcium [Mass/Vol]8.8 mg/dLNormal8.5-10.2CTuscarawas Hospital Comment on above:Order Comment: Specimen Type: BLOOD SPECIMENOrdering Facility: [facility] Address: [address] [place], [place] [address]Performed By: #### 58955-9 ####KARINA LABORATORYCLIA [id number] [place] [address] [place] AMERICAChloride [Moles/Vol]101 mmol/LSommvh61-097GfvjwzrbhMercy Health St. Vincent Medical CenterComment on above:Order Comment: Specimen Type: BLOOD SPECIMENOrdering Facility: [facility] Address: [address] [place], [place] [address]Performed By: #### 62266-0 ####KARINA LABORATORYCLIA [id number] [place] [address] [place] AMERICACO2 [Moles/Vol]28 mmol/EUloihj33-36HjqrzxtjxMercy Health St. Vincent Medical CenterComment on above:Order Comment: Specimen Type: BLOOD SPECIMENOrdering Facility: [facility] Address: [address] [place], [place] [address]Performed By: #### 14658-9 ####KARINA LABORATORYCLIA [id number] [place] [id number] [place] AMERICACreatinine [Mass/Vol]0.84 mg/dLNormal0.73-1.22[facility] Comment on above:Order Comment: Specimen Type: BLOOD SPECIMENOrdering Facility: [facility] Address: [address] [place], [place] [address]Performed By: #### 42567-9 ####KARINA LABORATORYCLIA [id number] [place] [id number] [place] AMERICAeGFRcr SerPlBld CKD-EPI 234097 mL/min/1.73m???Normal>=60[facility] Vincent Medical CenterComment on above: Order Comment: Specimen Type: BLOOD SPECIMENOrdering Facility: [facility] Address: [address] [place], [place] [address]Result Comment: Estimated Glomerular Filtration Rate (eGFR) is calculated using the 2020 CKD-EPI creatinine equation. This equation utilizes serum creatinine, sex, and age as parameters. The creatinine assay has traceable calibration to isotope dilution-mass spectrometry. Refer to KDIGO guidelines for clinical interpretation. In patients with unstable renal function, e.g. those with acute kidney injury, the eGFR may not accurately reflect actual GFR.Performed By: #### 24390-6 ####KARINA LABORATORYCLIA [id number] [place] [address] [place] AMERICAGlucose [Mass/Vol]83 mg/pMFrxvhq34-29ZorlwzuodAvita Health System [facility] on above:Order Comment: Specimen Type: BLOOD SPECIMENOrdering Facility: [facility] Address: [address] [place], [place] [address]Result Comment: The [place] Diabetes Association (ADA) provides guidance for cutoff [...] Standards of Medical Care in Diabetes 2016, [place] [employer] Association. Diabetes Care. 2016.39(Suppl 1). Performed By: #### 01463-5 ####KARINA LABORATORYCLIA [id number] [place] [id number] [place] AMERICAPotassium [Moles/Vol]5.0 mmol/LNormal3.7-5.1CTrinity Health System [facility] on above:Order Comment: Specimen Type: BLOOD SPECIMENOrdering Facility: [facility] Address: [address] [place], [place] [address]Performed By: #### 50447-5 ####KARINA LABORATORYCLIA [id number] [place] [address] [place] AMERICAProtein [Mass/Vol]6.0 g/dLLow6.3-8.0[facility] CenterComsheridan community hospital on above:Order Comment: Specimen Type: BLOOD SPECIMENOrdering Facility: [facility] Address: [address] [place], [place] [address]Performed By: #### 94803-2 ####KARINA LABORATORYCLIA [id number] [place] [address] [place] AMERICASodium [Moles/Vol]138 mmol/CWtsndd820-382LqbdfzhtjMercy Health St. [facility] Comment on above:Order Comment: Specimen Type: BLOOD SPECIMENOrdering Facility: [facility] Address: [address] [place], [place] [address]Performed By: #### 37713-1 ####[facility] LABORATORYCLIA [id number] [place] [address] [place] AMERICAUrea nitrogen [Mass/Vol]19 mg/dLNormal9-24[facility] on above:Order Comment: Specimen Type: BLOOD SPECIMENOrdering Facility: [facility] Address: [address] [place], [place] [address]Performed By: #### 10437-3 ####KARINA LABORATORYCLIA [id number] [place] [address] [place] AMERICAGGT SerPl-cCncon 39-45-7984Vpndq glutamyl transferase [Catalytic activity/Vol]157 U/JSdul80-57ThhwwgoqxMercy Health St. [facility] Comment on above:Order Comment: Specimen Type: BLOOD SPECIMENOrdering Facility: [facility] Address: [address] [place], [place] [address]Performed By: #### 2324-2 ####[facility] LABCLIA [id number] [place] [id number] [place] Magnesium SerPl-mCncon 29-82-7816Pedjlykxi [Mass/Vol]1.6 mg/dLLow1.7-2.3 [facility] on above:Order Comment: Specimen Type: BLOOD SPECIMENOrdering Facility: [facility] Address: [address] [place], [place] [address]Performed By: #### 53398-6 ####KARINA LABORATORYCLIA [id number] [place] [address] [place] AMERICANT-proBNP SerPl-mCncon 13-82-3058Vhfmhvgusai peptide.B prohormone N- Terminal [Mass/Vol]1165 pg/mLHigh<125[facility] CenterComsheridan community hospital on above: Order Comment: Specimen Type: BLOOD SPECIMENOrdering Facility: [facility] Address: [address] [place], [place] [address]Performed By: #### 18146-7 ####KARINA LABORATORYCLIA [id number] [place] [address] [place] AMERICAPhosphate SerPl-mCncon 60-29-1665Dyekmywgk [Mass/Vol]4.4 mg/dLNormal2.7-4.8CTuscarawas Hospital Comment on above:Order Comment: Specimen Type: BLOOD SPECIMENOrdering Facility: [facility] Address: [address] [place], [place] [address]Performed By: #### 2777-1 ####KARINA LABORATORYCLIA [id number] [place] [address] [place] AMERICATacrolimus Bld-mCncon 89-49-1034Mduyuislyn (Bld) [Mass/Vol]10.9 ng/mLNormal5.0-20.0[facility] on above:Order Comment: Specimen Type: BLOOD SPECIMENOrdering Facility: [facility] Address: [address] [place], [place] [address]Result Comment: Individualized target levels for a given [...] situation. Test performed by chemiluminescent immunoassay using Xactly CorpniRetrophin i.Performed By: #### 37233-2 ####[facility] LABCLIA [id number] [facility] [id number], [place] [address] [place] AMERICACBC W Auto Differential panel (Bld)on 25-35-5310Reftmloyotgm Ql (Bld)PresentNormalCTuscarawas Hospital Comment on above:Order Comment: Specimen Type: BLOOD SPECIMENOrdering Facility: [facility] Address: [address] [place], [place] [address]Performed By: #### 55046-4 ####KARINA LABORATORYCLIA [id number] [place] [address] [place] AMERICABasophils (Bld) [#/Vol] 0.00 10*3/uLNormal<0.11CTuscarawas HospitalComment on above:Order Comment: Specimen Type: BLOOD SPECIMENOrdering Facility: [facility] Address: [address] [place], [place] [address]Performed By: #### 92663-7 ####KARINA LABORATORYCLIA [id number] [place] [address] [place] AMERICABasophils/100 WBC (Bld)0.0 %NormalMercy Health St. Vincent Medical CenterComment on above:Order Comment: Specimen Type: BLOOD SPECIMENOrdering Facility: [facility] Address: [address] [place], [place] [address]Performed By: #### 99818-2 ####KARINA LABORATORYCLIA [id number] [place] [address] [place] AMERICADifferential cell count method Nom (Bld)ManualNormalClevelCarteret Health CareComsheridan community hospital on above:Order Comment: Specimen Type: BLOOD SPECIMENOrdering Facility: [facility] Address: [address] [place], [place] [address]Performed By: #### 68537-8 ####KARINA LABORATORYCLIA [id number] [place] [address] [place] Eosinophils (Bld) [#/Vol]0.22 10*3/uLNormal<0.46[facility] Comment on above:Order Comment: Specimen Type: BLOOD SPECIMENOrdering Facility: [facility] Address: [address] [place], [place] [address]Performed By: #### 46265-0 ####KARINA LABORATORYCLIA [id number] [place] [id number] [place] AMERICAEosinophils/100 WBC (Bld)2.0 %NormalAvita Health System Bu[facility] on above:Order Comment: Specimen Type: BLOOD SPECIMENOrdering Facility: [facility] Address: [address] [place], [place] [address]Performed By: #### 97332-8 ####KARINA LABORATORYCLIA [id number] [place] [id number] [place] AMERICAErythrocyte distribution width (RBC) [Ratio] 19.6 %High11.5-15.0[facility] on above:Order Comment: Specimen Type: BLOOD SPECIMENOrdering Facility: [facility] Address: [address] [place], [place] [address]Performed By: #### 17277-7 ####KARINA LABORATORYCLIA [id number] [place] [id number] [place] AMERICAHematocrit (Bld) [Volume fraction]23.1 %Low 39.0-51.0[facility] on above:Order Comment: Specimen Type: BLOOD SPECIMENOrdering Facility: [facility] Ad dress: [address] [place], [place] [address]Performed By: #### 25396-6 ####KARINA LABORATORYCLIA [id number] [place] [id number] [place] AMERICAHemoglobin (Bld) [Mass/Vol]7.4 g/dLLow13.0-17.0[facility] on above:Order Comment: Specimen Type: BLOOD SPECIMENOrdering Facility: [facility] Address: [address] [place], [place] [address]Performed By: #### 36987-4 ####KARINA LABORATORYCLIA [id number] [place] [id number] [place] AMERICALymphocytes (Bld) [#/Vol]0.34 10*3/uLLow1.00-4.00[facility] CenterComsheridan community hospital on above:Order Comment: Specimen Type: BLOOD SPECIMENOrdering Facility: [facility] Address: [address] [place], [place] [address]Performed By: #### 84194-5 ####KARINA LABORATORYCLIA [id number] [place] [address] [place] Lymphocytes/100 WBC (Bld)3.0 %NormalMercy Health St. Vincent Medical CenterComment on above: Order Comment: Specimen Type: BLOOD SPECIMENOrdering Facility: [facility] Address: [address] [place], [place] [address]Performed By: #### 18826-2 ####KARINA LABORATORYCLIA [id number] [address] (RBC) [Entitic mass]31.9 tfXbwnmr15.0-34.0[facility] Vincent Medical CenterComment on above:Order Comment: Specimen Type: BLOOD SPECIMENOrdering Facility: [facility] Address: [address] [place], [place] [address]Performed By: #### 68059-0 ####KARINA LABORATORYCLIA [id number] [address] (RBC) [Mass/Vol]32.0 g/dJLuhzkb45.5-36.0 [facility] on above:Order Comment: Specimen Type: BLOOD SPECIMENOrdering Facility: [facility] Address: [address] [place], [place] [address]Performed By: #### 07652-3 ####KARINA LABORATORYCLIA [id number] [address] (RBC) [Entitic vol]99.6 pSPxrcrh49.0-100.0[facility] Comment on above:Order Comment: Specimen Type: BLOOD SPECIMENOrdering Facility: [facility] Address: [address] [place], [place] [address]Performed By: #### 50901-1 ####KARINA LABORATORYCLIA [id number] [place] [address] [place] AMERICAMonocytes (Bld) [#/Vol] 0.11 10*3/uLNormal<0.87[facility] on above:Order Comment: Specimen Type: BLOOD SPECIMENOrdering Facility: [facility] Address: [address] [place], [place] [address]Performed By: #### 28111-7 ####KARINA LABORATORYCLIA [id number] [place] [id number] [place] AMERICAMonocytes/100 WBC (Bld)1.0 %NormalAvita Health System Bu[facility] on above:Order Comment: Specimen Type: BLOOD SPECIMENOrdering Facility: [facility] Address: [address] [place], [place] [address]Performed By: #### 73376-8 ####KARINA LABORATORYCLIA [id number] [place] [id number] [place] AMERICANeutrophils (Bld) [#/Vol]10.51 10*3/uLHigh1.45-7.50[facility] on above:Order Comment: Specimen Type: BLOOD SPECIMENOrdering Facility: [facility] Address: [address] [place], [place] [address]Performed By: #### 02131-6 ####KARINA LABORATORYCLIA [id number] [place] [id number] [place] Neutrophils/100 WBC (Bld)94.0 %NormalAvita Health System Bu[facility] on above: Order Comment: Specimen Type: BLOOD SPECIMENOrdering Facility: [facility] Address: [address] [place], [place] [address]Performed By: #### 86617-8 ####KARINA LABORATORYCLIA [id number] [place] [id number] [place] AMERICANucleated RBC (Bld) [#/Vol] 10*3/uLNormal<0.01[facility] on above:Order Comment: Specimen Type: BLOOD SPECIMENOrdering Facility: [facility] Address: [address] [place], [place] [address]Performed By: #### 14580-3 ####KARINA LABORATORYCLIA [id number] [place] [address] [place] AMERICANucleated RBC/100 WBC (Bld) [Ratio]0.0 /100 WBCNormalCTrinity Health System [facility] Campus on above:Order Comment: Specimen Type: BLOOD SPECIMENOrdering Facility: [facility] Ad dress: [address] [place], [place] [address]Performed By: #### 14323-0 ####KARINA LABORATORYCLIA [id number] [place] [id number] [place] AMERICAPlatelet mean volume (Bld) [Entitic vol]10.1 fLNormal 9.0-12.7CTrinity Health System [facility] on above:Order Comment: Specimen Type: BLOOD SPECIMENOrdering Facility: [facility] Address: [address] [place], [place] [address]Performed By: #### 97910-8 ####KARINA LABORATORYCLIA [id number] [place] [address] [place] AMERICAPlatelets (Bld) [#/Vol]288 10*3/xAWwxtig190-630OhmsjojdiMercy Health St. [facility] Comment on above:Order Comment: Specimen Type: BLOOD SPECIMENOrdering Facility: [facility] Address: [address] [place], [place] [address]Performed By: #### 45434-4 ####KARINA LABORATORYCLIA [id number] [place] [id number] [place] AMERICAPlatelets Estimate (Bld) [#/Vol]AdequateNormalClevelCarteret Health CareComsheridan community hospital on above:Order Comment: Specimen Type: BLOOD SPECIMENOrdering Facility: [facility] Address: [address] [place], [place] [address]Performed By: #### 84593-5 ####KARINA LABORATORYCLIA [id number] [place] [id number] [place] AMERICARBC (Bld) [#/Vol]2.32 10*6/uLLow4.20-6.00 [facility] ClevelandComment on above:Order Comment: Specimen Type: BLOOD SPECIMENOrdering Facility: [facility] Address: [address] [place], [place] [address]Performed By: #### 11531-0 ####DEONROLF LABORATORYCLIA [id number] [place] [address] [place] AMERICARED CELL MORPHReviewed: see results of individual morphologiesNormal [facility] on above:Order Comment: Specimen Type: BLOOD SPECIMENOrdering Facility: [facility] Address: [address] [place], [place] [address]Performed By: #### 21824-5 ####KARINA LABORATORYCLIA [id number] [place] [address] [place] AMERICAWBC (Bld) [#/Vol]11.18 10*3/uLHigh3.70-11.00[facility] Comment on above:Order Comment: Specimen Type: BLOOD SPECIMENOrdering Facility: [facility] Address: [address] [place], [place] [address]Performed By: #### 30090-5 ####KARINA LABORATORYCLIA [id number] [place] [address] [place] SY[facility] MEDICAL CENTERWBC Left Shift Ql (Bld) PresentNormalCTrinity Health System [facility] Campus on above:Order Comment: Specimen Type: BLOOD SPECIMENOrdering Facility: [facility] Ad dress: [address] [place], [place] [address]Performed By: #### 13205-8 ####KARINA LABORATORYCLIA [id number] [place] [address] [place] AMERICACCF COMP METAB 2000 PNL SERPLon 23-30-1847Zbpjyfq [Mass/Vol]2.5 g/dLLow3.9 - 4.9 g/dLNOMS HealthcareALP [Catalytic [...] - 1.22 mg/dL NOMS HealthcareEGFRCR SERPLBLD CKD-EPI 9495157- PINFNOSD HealthcareComment on above:Estimated Glomerular Filtration Rate (eGFR) [...] actual GFR.Glucose [Mass/Vol] 98 mg/dL74 - 99 mg/dLNOSD HealthcareComment on above:The [place] Diabetes Association (ADA) provides guidance for cutoff [...] Standards of Medical Care in Diabetes 2016, [place] [employer]. Diabetes Care. 2016.39(Suppl 1). Potassium [Moles/Vol]5.1 mmol/L3.7 - 5.1 mmol/LNOMS HealthcareSodium [Moles/Vol] 133 mmol/PDeu676 - 144 mmol/LNOMS HealthcareUrea nitrogen [Mass/Vol]21 mg/dL9 - 24 mg/dLNOMS HealthcareCCF CRP SERPL-MCNCon 58-32-6648TGV CRP SERPL-MCNC18.4 mg/dLHighNINF - 0.9 mg/dLNOCox North MAGNESIUM SERPL-MCNCon 01-15-2025 Magnesium [Mass/Vol]1.5 mg/dLLow1.7 - 2.3 mg/dLGeneral Leonard Wood Army Community HospitalCRP SerPl-mCncon 36-25-4398SOJ [Mass/Vol]18.4 mg/dLHigh<0.9CTuscarawas HospitalComsheridan community hospital on above:Order Comment: Specimen Type: BLOOD SPECIMENOrdering Facility: [facility] Address: [address] [place] [address] Performed By: #### 1988-5 ####KARINA LABORATORYCLIA [id number] [place] [address] [place] AMERICAComprehensive metabolic 2000 panelon 17-30-7597Hmfujje [Mass/Vol]2.5 g/dLLow3.9-4.9CTuscarawas Hospital Comment on above:Order Comment: Specimen Type: BLOOD SPECIMENOrdering Facility: [facility] Address: [address] [place], [place] [address]Performed By: #### 40749-8 ####KARINA LABORATORYCLIA [id number] [place] [address] [place] AMERICAALP [Catalytic activity/Vol]266 U/BIbdh34-965LuggvvgujMercy Health St. Vincent Medical CenterComsheridan community hospital on above:Order Comment: Specimen Type: BLOOD SPECIMENOrdering Facility: [facility] Address: [address] [place], [place] [address]Performed By: #### 92474-4 ####KARINA LABORATORYCLIA [id number] [place] [id number] [place] AMERICAALT [Catalytic activity/Vol]23 U/MHqcujm07-[address] [facility] Medical CenterComsheridan community hospital on above:Order Comment: Specimen Type: BLOOD SPECIMENOrdering Facility: [facility] Address: [address] [place], [place] [address]Performed By: #### 78074-3 ####KARINA LABORATORYCLIA [id number] [place] [address] [place] AMERICAAnion gap [Moles/Vol]9 mmol/LNormal8-15[facility] Medical CenterComsheridan community hospital on above:Order Comment: Specimen Type: BLOOD SPECIMENOrdering Facility: [facility] Address: [address] [place] [address] Performed By: #### 00696-1 ####KARINA LABORATORYCLIA [id number] [place] [id number] [place] AMERICAAST [Catalytic activity/Vol]28 U/JMhqruf39-74OzcqvnhgjMercy Health St. Vincent Medical CenterComsheridan community hospital on above:Order Comment: Specimen Type: BLOOD SPECIMENOrdering Facility: [facility] Ad dress: [address] [place], [place] [id number] By: #### 95295-8 ####KARINA LABORATORYCLIA [id number] [place] [address] [place] AMERICABilirubin [Mass/Vol]0.3 mg/dLNormal0.2-1.3CTrinity Health [facility] on above:Order Comment: Specimen Type: BLOOD SPECIMENOrdering Facility: [facility] Address: [address] [place], [place] [address]Performed By: #### 90374-2 ####KARINA LABORATORYCLIA [id number] [place] [id number] [place] AMERICACalcium [Mass/Vol]8.6 mg/dLNormal8.5-10.2CTuscarawas Hospital Comment on above:Order Comment: Specimen Type: BLOOD SPECIMENOrdering Facility: [facility] Address: [address] [place] [address]Lqbqdvnst By: #### 04135-4 ####KARINA LABORATORYCLIA [id number] [place] [id number] [place] AMERICAChloride [Moles/Vol]97 mmol/CXzt54-472AwgmjkcrhAvita Health System [facility] on above:Order Comment: Specimen Type: BLOOD SPECIMENOrdering Facility: [facility] Address: [address] [place], [place] [address]Performed By: #### 23228-3 ####DEONROLF LABORATORYCLIA [id number] [place] [address] [place] AMERICACO2 [Moles/Vol]27 mmol/OYixcps67-09QopbrgmwoAvita Health System [facility] on above:Order Comment: Specimen Type: BLOOD SPECIMENOrdering Facility: [facility] Address: [address] [place], [place] [address]Performed By: #### 15884-3 ####[facility]ONTHE [facility] LABORATORYCLIA [id number] [place] [address] [place] AMERICACreatinine [Mass/Vol]0.62 mg/dLLow0.73-1.22[facility] Comment on above:Order Comment: Specimen Type: BLOOD SPECIMENOrdering Facility: [facility] Address: [address] [place], [place] [address]Performed By: #### 94734-9 ####[facility]ONTHE [facility] LABORATORYCLIA [id number] [place] [address] [place] AMERICAeGFRcr SerPlBld CKD-EPI 0917779 mL/min/1.73m???Normal>=60[facility] on above: Order Comment: Specimen Type: BLOOD SPECIMENOrdering Facility: [facility] Address: [address] [place], [place] [address]Result Comment: Estimated Glomerular Filtration Rate (eGFR) is calculated using the 2020 CKD-EPI creatinine equation. This equation utilizes serum creatinine, sex, and age as parameters. The creatinine assay has traceable calibration to isotope dilution-mass spectrometry. Refer to KDIGO guidelines for clinical interpretation. In patients with unstable renal function, e.g. those with acute kidney injury, the eGFR may not accurately reflect actual GFR.Performed By: #### 08585-9 ####KARINA LABORATORYCLIA [id number] [place] [id number] [place] AMERICAGlucose [Mass/Vol]98 mg/zRMkkhfa56-72WeogskymcAvita Health System [facility] on above:Order Comment: Specimen Type: BLOOD SPECIMENOrdering Facility: [facility] Address: [address] [place], [place] [address]Result Comment: The [place] Diabetes Association (ADA) provides guidance for cutoff [...] Standards of Medical Care in Diabetes 2016, [place] [employer]. Diabetes Care. 2016.39(Suppl 1). Performed By: #### 04435-0 ####KARINA LABORATORYCLIA [id number] [place] [address] [place] AMERICAPotassium [Moles/Vol]5.1 mmol/LNormal3.7-5.1CTrinity Health System [facility] on above:Order Comment: Specimen Type: BLOOD SPECIMENOrdering Facility: [facility] Address: [address] [place], [place] [address]Performed By: #### 58519-9 ####KARINA LABORATORYCLIA [id number] [place] [id number] [place] AMERICAProtein [Mass/Vol]5.6 g/dLLow6.3-8.0[facility] on above:Order Comment: Specimen Type: BLOOD SPECIMENOrdering Facility: [facility] Address: [address] [place], [place] [address]Performed By: #### 63901-4 ####KARINA LABORATORYCLIA [id number] [place] [id number] [place] AMERICASodium [Moles/Vol]133 mmol/GCai213-944ZeqwqvoygAvita Health System [facility] on above:Order Comment: Specimen Type: BLOOD SPECIMENOrdering Facility: [facility] Address: [address] [place] [address] Performed By: #### 47685-8 ####KARINA LABORATORYCLIA [id number] [place] [id number] [place] AMERICAUrea nitrogen [Mass/Vol]21 mg/dLNormal9-24[facility] Medical CenterComsheridan community hospital on above:Order Comment: Specimen Type: BLOOD SPECIMENOrdering Facility: [facility] Address: [address] [place], [place] [address]Performed By: #### 96227-9 ####[facility]ONTHE [facility] LABORATORYCLIA [id number] [place] [address] [place] AMERICAGGT SerPl-cCncon 08-76-6681Cfyhk glutamyl transferase [Catalytic activity/Vol]156 U/OVhsr95-17YmtebvaasMercy Health St. [facility] Comment on above:Order Comment: Specimen Type: BLOOD SPECIMENOrdering Facility: [facility] Address: [address] [place], [place] [address]Performed By: #### 2324-2 ####[facility] LABCLIA [id number] [address] [address] [place] Magnesium SerPl-mCncon 40-16-0021Djnjzpqfs [Mass/Vol]1.5 mg/dLLow1.7-2.3 [facility] on above:Order Comment: Specimen Type: BLOOD SPECIMENOrdering Facility: [facility] Address: [address] [place], [place] [address]Performed By: #### 20301-6 ####KARINA LABORATORYCLIA [id number] [address] Panel Informationon 42-45-0665Rxitfgetjodauq and review of laboratory resultsAbnormalNOMS HealthcareSpecimen Type: BLOOD SPECIMEN [facility]ing Facility[facility] Address: [address] [place] [address] Original Ordering Provider: DAVID BRAVOGeneral Leonard Wood Army Community HospitalTacrolimus Bld-ncon 32-02-0223Cydmaiiebt (Bld) [Mass/Vol]10.6 ng/mLNormal5.0-20.0 [facility] on above:Order Comment: Specimen Type: BLOOD SPECIMENOrdering Facility: [facility] Address: [address] [place], [place] [address]Result Comment: Individualized target levels for a given [...] situation. Test performed by chemiluminescent immunoassay using Pairin Alinity i.Performed By: #### 23239-8 ####[facility] LABIA [id number] [place] [address] [place] CASE MANAGEMon 26-50-6520KTLF MANAGEMNormalParkwood Hospital W Auto Differential panel (Bld)on 80-68-4586Pshrtqykljwj Ql (Bld)PresentNormalCTrinity Health System East Campus on above:Order Comment: Specimen Type: BLOOD SPECIMENOrdering Facility: [facility] Address:[address] [place], [place] [address]Performed By: #### 00840-1 ####[facility] SYSTEMIA [id number] [place] [address] [place] [facility] MEDICAL CENTERBasophils (Bld) [#/Vol]0.00 10*3/uLNormal<0.11CTuscarawas Hospital Comment on above:Order Comment: Specimen Type: BLOOD SPECIMENOrdering Facility: [facility] Address:[address] [place] [address] Performed By: #### 12157-4 ####[facility]IA [id number] [place] [address] [place] Basophils/100 WBC (Bld)0.0 %NormalAvita Health System [facility] on above: Order Comment: Specimen Type: BLOOD SPECIMENOrdering Facility: [facility] Address:[address] [place], [place] [address]Performed By: #### 64134- 8 ####[facility] LABIA [id number] [place] [address] [place] AMERICADifferential cell count method Nom (Bld)ManualNormalCTrinity Health System East Campus on above:Order Comment: Specimen Type: BLOOD SPECIMENOrdering Facility: [facility] Address:[address] [place], [place] [address]Performed By: #### 37275-8 ####[facility] LABCLIA [id number] [place] [id number] [place] AMERICAEosinophils (Bld) [#/Vol]0.12 10*3/uLNormal<0.46[facility] on above:Order Comment: Specimen Type: BLOOD SPECIMENOrdering Facility: [facility] Address:[address] [place], [place] [address]Performed By: #### 95333-3 ####[facility] LABIA [id number] [place] [address] [place] AMERICAEosinophils/100 WBC (Bld)1.0 % NormalAvita Health System [facility] on above:Order Comment: Specimen Type: BLOOD SPECIMENOrdering Facility: [facility] Address:[address] [place], [place] [address]Performed By: #### 81966-9 ####[facility] LABIA [id number] [place] [id number] [place] AMERICAErythrocyte distribution width (RBC) [Ratio]19.6 %High11.5-15.0 [facility] on above:Order Comment: Specimen Type: BLOOD SPECIMENOrdering Facility: [facility] Address:[address] [place], [place] [address]Performed By: #### 36641-1 ####[facility] LABIA [id number] [place] [id number] [place] AMERICAHematocrit (Bld) [Volume fraction]24.2 %Low39.0-51.0[facility] on above:Order Comment: Specimen Type: BLOOD SPECIMENOrdering Facility: [facility] Address:[address] [place], [place] [address]Performed By: #### 62935-9 ####[facility] LABIA [id number] [address] STATES [place] Hemoglobin (Bld) [Mass/Vol]7.6 g/dLLow13.0-17.0[facility] on above:Order Comment: Specimen Type: BLOOD SPECIMENOrdering Facility: [facility] Address:[address] [place] [address] Performed By: #### 82172-0 ####[facility] LABIA [id number] [address] Lymphocytes (Bld) [#/Vol]1.11 10*3/uLNormal1.00-4.00[facility] Comment on above:Order Comment: Specimen Type: BLOOD SPECIMENOrdering Facility: [facility] Address:[address] [place] [address] Performed By: #### 83154-0 ####[facility] LABIA [id number] [address] STATES [facility] Lymphocytes/100 WBC (Bld)9.0 %NormalAvita Health System [facility] on above: Order Comment: Specimen Type: BLOOD SPECIMENOrdering Facility: [facility] Address:[address] [place], [place] [address]Performed By: #### 45995- 8 ####[facility] LABIA [id number] [place] [id number] CITIZENS BAPTISTMCH (RBC) [Entitic mass]31.8 pg Hpwkoi93.0-34.0[facility] on above:Order Comment: Specimen Type: BLOOD SPECIMENOrdering Facility: [facility] Address:[address] [place], [place] [address]Performed By: #### 53336-4 ####[facility] LABIA [id number] [place] [id number] [place] AMERICAMCHC (RBC) [Mass/Vol]31.4 g/dL Usrpjz15.5-36.0[facility] on above:Order Comment: Specimen Type: BLOOD SPECIMENOrdering Facility: [facility] Address:[address] [place], [place] [address]Performed By: #### 14731-7 ####[facility] LABCLIA [id number] [address]ETMCV (RBC) [Entitic vol]101.3 fL High80.0-100.0[facility] on above:Order Comment: Specimen Type: BLOOD SPECIMENOrdering Facility: [facility] Address:[address] [place], [place] [address]Performed By: #### 46259-6 ####[facility] LABCLIA [id number] [address] STATES OF AMERICAMetamyelocytes/100 WBC (Bld)1.0 %NormalAvita Health System [facility] on above:Order Comment: Specimen Type: BLOOD SPECIMENOrdering Facility: [facility] Address:[address] [place], [place] [address]Performed By: #### 58433-9 ####[facility] LABCLIA [id number] [place] [address] [place] Monocytes (Bld) [#/Vol]0.99 10*3/uLHigh<0.87[facility] on above:Order Comment: Specimen Type: BLOOD SPECIMENOrdering Facility: [facility] Address:[address] [place], [place] [address]Performed By: #### 80756-0 ####[facility] LABCLIA [id number] [address] STATES OF AMERICAMonocytes/100 WBC (Bld)8.0 %NormalAvita Health System Bu[facility] on above:Order Comment: Specimen Type: BLOOD SPECIMENOrdering Facility: [facility] Address:[address] [place], [place] [address]Performed By: #### 22099-8 ####[facility] LABCLIA [id number] [place] [address] [place] AMERICANeutrophils (Bld) [#/Vol]10.01 10*3/uLHigh1.45-7.50[facility] on above:Order Comment: Specimen Type: BLOOD SPECIMENOrdering Facility: [facility] Address:[address] [place], [place] [address]Performed By: #### 02047-5 ####[facility] LABIA [id number] [place] [address] [place] AMERICANeutrophils/100 WBC (Bld)81.0 % NormalAvita Health System Bu[facility] on above:Order Comment: Specimen Type: BLOOD SPECIMENOrdering Facility: [facility] Address:[address] [place], [place] [address]Performed By: #### 46794-1 ####[facility] LABIA [id number] [place] [address] [place] AMERICANucleated RBC (Bld) [#/Vol]10*3/uLNormal<0.01[facility] on above:Order Comment: Specimen Type: BLOOD SPECIMENOrdering Facility: [facility] Address:[address] [place], [place] [address]Performed By: #### 98645-0 ####[facility] LABCLIA [id number] [place] [id number] [place] Nucleated RBC/100 WBC (Bld) [Ratio]0.0 /100 WBCNormalCTuscarawas Hospital Comment on above:Order Comment: Specimen Type: BLOOD SPECIMENOrdering Facility: [facility] Address:[address] [place] [address] Performed By: #### 06163-6 ####[facility] LABCLIA [id number] [place] [id number] [place] Ovalocytes LM Ql (Bld)FewNormalCTrinity Health System East Campus on above:Order Comment: Specimen Type: BLOOD SPECIMENOrdering Facility: [facility] Address:[address] [place], [place] [address]Performed By: #### 06149- 8 ####[facility] LABCLIA [id number] [address], [facility]95 [place] OF AMERICAPlatelet mean volume (Bld) [Entitic vol]9.9 fLNormal9.0-12.7CTrinity Health System [facility] on above: Order Comment: Specimen Type: BLOOD SPECIMENOrdering Facility: [facility] Address:[address] [place], [place] [address]Performed By: #### 60758- 8 ####[facility] LABCLIA [id number] [place] [address] [place] AMERICAPlatelets (Bld) [#/Vol]322 10*3/nRFpkqgl887-030VldugqkijAvita Health System [facility] on above:Order Comment: Specimen Type: BLOOD SPECIMENOrdering Facility: [facility] Address:[address] [place], [place] [address]Performed By: #### 64474-5 ####[facility] LABCLIA [id number] [place] [address] [place] SYCAMORE MEDICAL CENTERPlatelets Estimate (Bld) [#/Vol] AdequateNormalCTrinity Health System East Campus on above:Order Comment: Specimen Type: BLOOD SPECIMENOrdering Facility: [facility] Address:[address] [place], [place] [address]Performed By: #### 82425-6 ####[facility] LABCLIA [id number] [place] [id number] [place] AMERICAPolychromasia LM Ql (Bld)SlightNormalCTrinity Health System East Campus on above:Order Comment: Specimen Type: BLOOD SPECIMENOrdering Facility: [facility] Address:[address] [place], [place] [address]Performed By: #### 80380-0 ####[facility] LABCLIA [id number] [place] [address] [place] RBC (Bld) [#/Vol]2.39 10*6/uLLow4.20-6.00[facility] on above:Order Comment: Specimen Type: BLOOD SPECIMENOrdering Facility: [facility] Address:[address] [place], [place] [address]Performed By: #### 82483-6 ####[facility] LABIA [id number] [address]ETRED CELL MORPH Reviewed: see results of individual [facility] Comment on above:Order Comment: Specimen Type: BLOOD SPECIMENOrdering Facility: [facility] Address:[address] [place] [address] Performed By: #### 48546-5 ####[facility] LABIA [id number] [place] [address] [place] Target cells LM Ql (Bld)[facility] on above: Order Comment: Specimen Type: BLOOD SPECIMENOrdering Facility: [facility] Address:[address] [place], [place] [address]Performed By: #### 77751- 8 ####[facility] LABIA [id number] [place] [address] [place] AMERICAWBC (Bld) [#/Vol]12.36 10*3/uL High3.70-11.00[facility] on above:Order Comment: Specimen Type: BLOOD SPECIMENOrdering Facility: [facility] Address:[address] [place], [place] [address]Performed By: #### 44342-9 ####[facility] LABIA [id number] [place] [address] [place] AMERICAWBC Left Shift Ql (Bld)PresentNormalCTrinity Health System East Campus on above:Order Comment: Specimen Type: BLOOD SPECIMENOrdering Facility: [facility] Address:[address] [place], [place] [address]Performed By: #### 25350-1 ####[facility] LABCLIA [id number] [address] [place] [address] [place] CNDSon 90-49-7835KYTMUwwxeqAgnejchpr Clinic ClevelandComprehensive metabolic 2000 panelon 21-15-4037Mbdvvbp [Mass/Vol]2.3 g/dLLow3.9-4.9ClevelFostoria City Hospital on above:Order Comment: Specimen Type: BLOOD SPECIMENOrdering Facility: [facility] Address:[address] [place], [place] [address]Performed By: #### 55833-6, 99912-7, 2777-1 ####[facility] LABCLIA [id number] [address] [place] AMERICAALP [Catalytic activity/Vol]283 U/ZBbjc51-816KciuykkyvAvita Health System [facility] on above:Order Comment: Specimen Type: BLOOD SPECIMENOrdering Facility: [facility] Address:[address] [place], [place] [address]Performed By: #### 12209-8, 42781-7, 2777-1 ####[facility] LABCLIA [id number] VIL[place] [id number] [place] AMERICAALT [Catalytic activity/Vol]27 U/VGculen39-77SqgawtfhfAvita Health System Bu[facility] Hospital on above:Order Comment: Specimen Type: BLOOD SPECIMENOrdering Facility: [facility] Address:[address] [place], [place] [address]Performed By: #### 44469-8, 26642-0, 2777-1 ####[facility] LABCLIA [id number] [place] [id number] [place] AMERICAAnion gap [Moles/Vol]11 mmol/LNormal8-15[facility] on above:Order Comment: Specimen Type: BLOOD SPECIMENOrdering Facility: [facility] Address:[address] [place], [place] [address]Performed By: #### 65541-8, , 2776-04 ####[facility] LABCLIA [id number] AVENUEU.S[place] [address] [place] AMERICAAST [Catalytic activity/Vol]28 U/VKnvhvm38-98NnsvqtpzbAvita Health System [facility] on above:Order Comment: Specimen Type: BLOOD SPECIMENOrdering Facility: [facility] Address:[address] [place], [place] [address]Performed By: #### 08112-3, , 2776-04 ####[facility] LABCLIA [id number] [place] [address] [place] AMERICABilirubin [Mass/Vol]0.2 mg/dLNormal0.2-1.3CTrinity Health System [facility] on above:Order Comment: Specimen Type: BLOOD SPECIMENOrdering Facility: [facility] Address:[address] [place], [place] [address]Performed By: #### 07125-5, , 2776-04 ####[facility] LABCLIA [id number] [place] [id number] [place] AMERICACalcium [Mass/Vol]8.5 mg/dLNormal8.5-10.2CTrinity Health [facility] on above:Order Comment: Specimen Type: BLOOD SPECIMENOrdering Facility: [facility] Address:[address] [place], [place] [address]Performed By: #### 26135-0, , 2776-04 ####[facility] LABCLIA [id number] AVENUEU.S. NAVAL HOSPITALK [place] [id number] [place] AMERICAChloride [Moles/Vol]101 mmol/FEidyih88-287DvqsfkxgrAvita Health System [facility] on above:Order Comment: Specimen Type: BLOOD SPECIMENOrdering Facility: [facility] Address:[address] [place], [place] [address]Performed By: #### 08683-8, , 2776-04 ####[facility] LABIA [id number] [address] [place] AMERICACO2 [Moles/Vol]23 mmol/UEtzzkb34-28NamteotozMercy Health St. [facility] Comment on above:Order Comment: Specimen Type: BLOOD SPECIMENOrdering Facility: [facility] Address:[address] [place] [address] Performed By: #### 70998-2, , 2776-04 ####[facility] [id number] VILLE [id number] [place] AMERICACreatinine [Mass/Vol]0.71 mg/dLLow0.73-1.22[facility] Comment on above:Order Comment: Specimen Type: BLOOD SPECIMENOrdering Facility: [facility] Address:[address] [place] [address] Performed By: #### 66526-2, , 2776-04 ####[facility] [id number] [place]ILLE [id number] [place] AMERICAeGFRcr SerPlBld CKD-EPI 974425 mL/min/1.73m???Normal>=60[facility] Vincent Medical CenterComment on above:Order Comment: Specimen Type: BLOOD SPECIMENOrdering Facility: [facility] Address:[address] [place], [place] [address]Result Comment: Estimated Glomerular Filtration Rate (eGFR) is [...] accurately reflect actual GFR. Performed By: #### 78163-9, 22730-7, 2777-1 ####[facility] LABIA [id number] [address] [place] AMERICAGlucose [Mass/Vol]110 mg/sGAxnn24-23JcezqueubAvita Health System [facility] on above:Order Comment: Specimen Type: BLOOD SPECIMENOrdering Facility: [facility] Address:[address] [place], [place] [address]Result Comment: The [place] Diabetes Association (ADA) provides guidance for cutoff [...] Standards of Medical Care in Diabetes 2016, [place] [employer]. Diabetes Care. 2016.39(Suppl 1).Performed By: #### 99858-4, 83950-4, 2776- ####[facility] LABIA [id number] VIL[place] [id number] [place] AMERICAPotassium [Moles/Vol]4.9 mmol/LNormal3.7-5.1 [facility] on above:Order Comment: Specimen Type: BLOOD SPECIMENOrdering Facility: [facility] Address:[address] [place], [place] [address]Performed By: #### 30979-6, 76044-9, 2776- ####[facility] LABGRACE [facility] [id number] [address] [place] AMERICAProtein [Mass/Vol]5.5 g/dLLow6.3-8.0[facility] on above:Order Comment: Specimen Type: BLOOD SPECIMENOrdering Facility: [facility] Address:[address] [place], [place] [address]Performed By: #### 80959-0, 73211-7, 2777- ####[facility] LABCLIA [id number] [address] [address] [place] AMERICASodium [Moles/Vol]135 mmol/QFyy125-104GcdlmlkmwAvita Health System [facility] on above:Order Comment: Specimen Type: BLOOD SPECIMENOrdering Facility: [facility] Address:[address] [place], [place] [address]Performed By: #### 26837-5, 88257-9, 277- ####[facility] LABIA [id number] [address] [place] AMERICAUrea nitrogen [Mass/Vol]20 mg/dLNormal9-[address] Vincent Medical CenterComment on above:Order Comment: Specimen Type: BLOOD SPECIMENOrdering Facility: [facility] Address:[address] [place], [place] [address]Performed By: #### 27523-2, 08881-9, 27710-15 ####[facility] LABCLIA [id number] [address] [place] AMERICAMagnesium SerPl-mCncon 00-25-5789Pmucjeydw [Mass/Vol]1.7 mg/dLNormal1.7-2.3CTuscarawas HospitalComsheridan community hospital on above:Order Comment: Specimen Type: BLOOD SPECIMENOrdering Facility: [facility] Address:[address] [place] [address]Fiqsngbae By: #### 33465- 8, 58120-2, 2777 ####[facility] LABIA [id number] VILLE [id number] [place] AMERICAPT panel Coag (PPP)on 24-46-3845BJB Coag (PPP) [Relative time]Normal0.9-1.3CTuscarawas Hospital Comment on above:Order Comment: Specimen Type: BLOOD SPECIMENOrdering Facility: [facility] Address:[address] [place], [place] [address]Result Comment: Disregard results. Specimen incorrectly identified.Corrected result: Previously reported as 1.1 on 01/14/2025 at 6:12 PM EDT.Performed By: #### 35473- 0 ####[facility] LABCLIA [id number] [place] [id number] [place] SYCAMORE MEDICAL CENTERPT Coag (PPP) [Time]Normal 9.7-13.0[facility] on above:Order Comment: Specimen Type: BLOOD SPECIMENOrdering Facility: [facility] Address:[address] [place], [place] [address]Result Comment: Disregard results. Specimen incorrectly identified.Corrected result: Previously reported as 12.3 sec on 01/14/2025 at 6:12 PM EDT.Performed By: #### 34004-3 ####[facility] LABCLIA [id number] [address] OF AMERICAPhosphate SerPl-Lifecare Hospital of Pittsburghon 40-22-8007Uovlijwut [Mass/Vol]4.3 mg/dL Normal2.7-4.8CTrinity Health [facility] on above:Order Comment: Specimen Type: BLOOD SPECIMENOrdering Facility: [facility] Address:[address] [place], [place] [address]Performed By: #### 78026-3, 70996-6, 2777-1 ####[facility] LABCLIA [id number] [address] OF SYCAMORE MEDICAL CENTERTHERAPY NTon 36-03-0438UDGSDXC NT NormalMercy Health St. Vincent Medical CenterTHERAPY NTNormalClevelCarteret Health Care Tacrolimus Bld-mCncon 06-93-2468Sfxwjlsslb (Bld) [Mass/Vol]9.0 ng/mLNormal 5.0-20.0[facility] on above:Order Comment: Specimen Type: BLOOD SPECIMENOrdering Facility: [facility] Address:[address] [place], [place] [address]Result Comment: Individualized target levels for a given [...] situation. Test performed by chemiluminescent immunoassay using Pairin Alinity i.Performed By: #### 73760-5 ####[facility] LABCLIA [id number] [place] [address] [place] CBC W Auto Differential panel (Bld)on 21-44-3238Cpnztojjdqel Ql (Bld)Present NormalAvita Health System [facility] on above:Order Comment: Specimen Type: BLOOD SPECIMENOrdering Facility: [facility] Address:[address] [place], [place] [address]Performed By: #### 22260-7 ####[facility] LABIA [id number] [place] [address] [place] SYCAMORE MEDICAL CENTERBasophils (Bld) [#/Vol]0.00 10*3/uLNormal<0.11ClevelFostoria City Hospital on above:Order Comment: Specimen Type: BLOOD SPECIMENOrdering Facility: [facility] Address:[address] [place], [place] [address]Performed By: #### 58271-7 ####[facility] LABIA [id number] [place] [address] [place] Basophils/100 WBC (Bld)0.0 %NormalAvita Health System Bu[facility] on above: Order Comment: Specimen Type: BLOOD SPECIMENOrdering Facility: [facility] Address:[address] [place], [place] [address]Performed By: #### 28046- 8 ####[facility] LABIA [id number] [place] [address] [place] [facility]ORE MEDICAL CENTERDifferential cell count method Nom (Bld)ManualNormalClevelFostoria City Hospital on above:Order Comment: Specimen Type: BLOOD SPECIMENOrdering Facility: [facility] Address:[address] [place], [place] [address]Performed By: #### 82736-6 ####[facility] LABIA [id number] [place] [address] [place] AMERICAEosinophils (Bld) [#/Vol]0.00 10*3/uLNormal<0.46[facility] on above:Order Comment: Specimen Type: BLOOD SPECIMENOrdering Facility: [facility] Address:[address] [place], [place] [address]Performed By: #### 56473-4 ####[facility] LABIA [id number] [place] [address] [place] AMERICAEosinophils/100 WBC (Bld)0.0 % NormalAvita Health System Bucyrus Hospital on above:Order Comment: Specimen Type: BLOOD SPECIMENOrdering Facility: [facility] Address:[address] [place], [place] [address]Performed By: #### 46483-1 ####[facility] LABIA [id number] [place] [address] [place] AMERICAErythrocyte distribution width (RBC) [Ratio]19.6 %High11.5-15.0 [facility] on above:Order Comment: Specimen Type: BLOOD SPECIMENOrdering Facility: [facility] Address:[address] [place], [place] [address]Performed By: #### [id number] ####[facility] [id number] [place] [address] [place] AMERICAHematocrit (Bld) [Volume fraction]23.8 %Low39.0-51.0[facility] on above:Order Comment: Specimen Type: BLOOD SPECIMENOrdering Facility: [facility] Address:[address] [place], [place] [address]Performed By: #### [id number] ####[facility] [id number] [place] [id number] [place] Hemoglobin (Bld) [Mass/Vol]7.5 g/dLLow13.0-17.0[facility] on above:Order Comment: Specimen Type: BLOOD SPECIMENOrdering Facility: [facility] Address:[address] [place] [address] Performed By: #### [id number] ####[facility] [id number] [place] [address] [place] Lymphocytes (Bld) [#/Vol]0.51 10*3/uLLow1.00-4.00[facility] Comment on above:Order Comment: Specimen Type: BLOOD SPECIMENOrdering Facility: [facility] Address:[address] [place] [address] Performed By: #### [id number] ####[facility] [id number] [address] [place] Lymphocytes/100 WBC (Bld)4.3 %NormalAv[facility] on above: Order Comment: Specimen Type: BLOOD SPECIMENOrdering Facility: [facility] Address:[address] [place], [place] [address]Performed By: #### [id number]- [id number] ####[facility] [id number] [address] (RBC) [Entitic mass]31.3 pg Zrsonh14.0-34.0[facility] on above:Order Comment: Specimen Type: BLOOD SPECIMENOrdering Facility: [facility] Address:[address] [place], [place] [address]Performed By: #### 50305-0 ####[facility] LABIA [id number] [place] [id number] [facility] (RBC) [Mass/Vol]31.5 g/dL Guuuoa76.5-36.0[facility] on above:Order Comment: Specimen Type: BLOOD SPECIMENOrdering Facility: [facility] Address:[address] [place], [place] [address]Performed By: #### 76156-5 ####[facility] LABCLIA [id number] [address] [place] [address] [place] AMERICAMCV (RBC) [Entitic vol]99.2 fL Qexabp74.0-100.0[facility] on above:Order Comment: Specimen Type: BLOOD SPECIMENOrdering Facility: [facility] Address:[address] [place], [place] [address]Performed By: #### 63274-6 ####[facility] LABIA [id number] [address], [facility]95 [place] OF AMERICAMonocytes (Bld) [#/Vol]0.83 10*3/uLNormal<0.87[facility] on above:Order Comment: Specimen Type: BLOOD SPECIMENOrdering Facility: [facility] Address:[address] [place], [place] [address]Performed By: #### 62475-3 ####[facility] LABIA [id number] [address], [facility]95 [place] AMERICAMonocytes/100 WBC (Bld)7.0 % NormalAv[facility] Health [facility] on above:Order Comment: Specimen Type: BLOOD SPECIMENOrdering Facility: [facility] Address:[address] [place], [place] [address]Performed By: #### 69769-7 ####[facility] LABCLIA [id number] [address] [place] [address] [place] AMERICAMYELO%0.9 %NormalAv[facility] on above: Order Comment: Specimen Type: BLOOD SPECIMENOrdering Facility: [facility] Address:[address] [place], [place] [address]Performed By: #### 05740- 8 ####[facility] LABCLIA [id number] [place] [address] [place] AMERICANeutrophils (Bld) [#/Vol]10.36 10*3/uLHigh1.45-7.50[facility] on above:Order Comment: Specimen Type: BLOOD SPECIMENOrdering Facility: [facility] Address:[address] [place], [place] [address]Performed By: #### 78310-8 ####[facility] LABIA [id number] [place] [address] [place] AMERICANeutrophils/100 WBC (Bld)87.8 % NormalAvita Health System [facility] on above:Order Comment: Specimen Type: BLOOD SPECIMENOrdering Facility: [facility] Address:[address] [place], [place] [address]Performed By: #### 56355-2 ####[facility] LABIA [id number] [place] [address] [place] AMERICANucleated RBC (Bld) [#/Vol]10*3/uLNormal<0.01[facility] on above:Order Comment: Specimen Type: BLOOD SPECIMENOrdering Facility: [facility] Address:[address] [place], [place] [address]Performed By: #### 52308-7 ####[facility] LABIA [id number] [place] [address] [place] Nucleated RBC/100 WBC (Bld) [Ratio]0.0 /100 WBCNormalCTuscarawas Hospital Comment on above:Order Comment: Specimen Type: BLOOD SPECIMENOrdering Facility: [facility] Address:[address] [place] [address] Performed By: #### 35786-6 ####[facility] LABIA [id number] [place] [address] [place] Platelet mean volume (Bld) [Entitic vol]10.0 fLNormal9.0-12.7CTrinity [facility] on above:Order Comment: Specimen Type: BLOOD SPECIMENOrdering Facility: [facility] Address:[address] [place], [place] [address]Performed By: #### 96035-9 ####[facility] LABCLIA [id number] [facility] [address] [place] [address] [place] Platelets (Bld) [#/Vol]318 10*3/eZEmslbw150-799CgtcxzxgnAvita Health [facility] on above:Order Comment: Specimen Type: BLOOD SPECIMENOrdering Facility: [facility] Address:[address] [place] [address] Performed By: #### 04810-0 ####[facility] LABCLIA [id number] [address], [facility]95 [place] Platelets Estimate (Bld) [#/Vol]AdequateNormalCTrinity Health System [facility] Campus on above:Order Comment: Specimen Type: BLOOD SPECIMENOrdering Facility: [facility] Address:[address] [place] [address] Performed By: #### 01020-0 ####[facility] LABCLIA [id number] [address], [facility]95 [place] Polychromasia LM Ql (Bld)SlightNormalCTrinity Health System [facility] Campus on above: Order Comment: Specimen Type: BLOOD SPECIMENOrdering Facility: [facility] Address:[address] [place], [place] [address]Performed By: #### 18599- 8 ####[facility] LABCLIA [id number] [facility] [address] [place] [address] [place] AMERICARBC (Bld) [#/Vol]2.40 10*6/uLLow 4.20-6.00[facility] on above:Order Comment: Specimen Type: BLOOD SPECIMENOrdering Facility: [facility] Address:[address] [place], [place] [address]Performed By: #### 78977-5 ####[facility] LABCLIA [id number] [address] [place] [address] [place] AMERICARED CELL MORPHReviewed: see results of individual morphologiesNoGrant Hospital on above:Order Comment: Specimen Type: BLOOD SPECIMENOrdering Facility: [facility] Address:[address] [place], [place] [address]Performed By: #### 20166-3 ####[facility] LABCLIA [id number] [address] [place] [address] [place] AMERICATarget cells LM Ql (Bld)FewNormal [facility] on above:Order Comment: Specimen Type: BLOOD SPECIMENOrdering Facility: [facility] Address:[address] [place], [place] [address]Performed By: #### 16893-8 ####[facility] LABCLIA [id number] [address], [facility]95 [place] OF AMERICAWBC (Bld) [#/Vol]11.80 10*3/uLHigh3.70-11.00[facility] Comment on above:Order Comment: Specimen Type: BLOOD SPECIMENOrdering Facility: [facility] Address:[address] [place] [address] Performed By: #### 76796-1 ####[facility] LABCLIA [id number] [address] [place] [address] [place] WBC Left Shift Ql (Bld)[facility] on above: Order Comment: Specimen Type: BLOOD SPECIMENOrdering Facility: [facility] Address:[address] [place], [place] [address]Performed By: #### 79592- 8 ####[facility] LABCLIA [id number] [address], [facility]95 [place] OF AMERICACONSULT PROGon 73-06-6629LJHYRGN PROGNormalMercy Health St. Vincent Medical CenterCONSULT PROGNormalMercy Health St. [facility] CONSULT PROGNormalMercy Health St. Vincent Medical CenterCYTOMEGALOVIRUS (CMV) DNA, QUANTITATIVE PCR, PLASMAon 29-13-8306QAN DNA JESSICA+probe [#/Vol]352 IU/mLUniversity [facility] on above:Order Comment: Specimen Type: BLOOD SPECIMENOrdering Facility: [facility] Address:[address] [place], [place] [address]Performed By: #### CMVQNT ####[facility] LABCLIA [id number] [place] [address] [place] AMERICACMV DNA JESSICA+probe [Log #/Vol]2.55 log IU/mLOhioHealth [facility] Comment on above:Order Comment: Specimen Type: BLOOD SPECIMENOrdering Facility: [facility] Address:[address] [place] [address] Performed By: #### CMVQNT ####[facility] LABCLIA [id number] [place] [address] [place] CMV DNA JESSICA+probe Qn (P)DetectedAbnormalNot DetectedMercy Health St. [facility] Center Comment on above:Order Comment: Specimen Type: BLOOD SPECIMENOrdering Facility: [facility] Address:[address] [place] [address] Performed By: #### CMVQNT ####[facility] LABCLIA [id number] [place] [address] [place] Comprehensive metabolic 2000 panelon 30-07-8686Lkcassa [Mass/Vol]2.1 g/dLLow 3.9-4.9CTrinity [facility] on above:Order Comment: Specimen Type: BLOOD SPECIMENOrdering Facility: [facility] Address:[address] [place], [place] [address]Performed By: #### 64599-3, 66310-8, 2777-1 ####[facility] LABCLIA [id number] [address] [place] AMERICAALP [Catalytic activity/Vol]288 U/MQcfu54-589WzajzcihaAv[facility] on above:Order Comment: Specimen Type: BLOOD SPECIMENOrdering Facility: [facility] Address:[address] [place], [place] [address]Performed By: #### 70015-7, 16065-7, 2776-04 ####[facility] LABCLIA [id number] [address] [place] AMERICAALT [Catalytic activity/Vol]28 U/KMpgexh43-51RhybicixdAvita [facility] on above:Order Comment: Specimen Type: BLOOD SPECIMENOrdering Facility: [facility] Address:[address] [place], [place] [address]Performed By: #### 38742-2, 18542-8, 2776-04 ####[facility] LABCLIA [id number] [place] [address] [place] AMERICAAnion gap [Moles/Vol]10 mmol/L Normal8-15[facility] on above:Order Comment: Specimen Type: BLOOD SPECIMENOrdering Facility: [facility] Address:[address] [place], [place] [address]Performed By: #### 73515-9, 04566-2, 2776-04 ####[facility] LABCLIA [id number] [place]ILLE [address] [place] AMERICAAST [Catalytic activity/Vol]27 U/USoomvm01-15QrrsiucrxAvita Health System [facility] on above:Order Comment: Specimen Type: BLOOD SPECIMENOrdering Facility: [facility] Address:[address] [place], [place] [address]Performed By: #### 53279-9, 99603-5, 2776-04 ####[facility] LABIA [id number] [address] [place] AMERICABilirubin [Mass/Vol]0.2 mg/dL Normal0.2-1.3CTrinity Health System [facility] on above:Order Comment: Specimen Type: BLOOD SPECIMENOrdering Facility: [facility] Address:[address] [place], [place] [address]Performed By: #### 38548-5, , 2776-04 ####[facility] LABCLIA [id number] [address] [place] AMERICACalcium [Mass/Vol]8.3 mg/dLLow 8.5-10.2CTrinity Health [facility] on above:Order Comment: Specimen Type: BLOOD SPECIMENOrdering Facility: [facility] Address:[address] [place], [place] [address]Performed By: #### 78198-0, , 2776-04 ####[facility] LABCLIA [id number] VILLE [address] [place] AMERICAChloride [Moles/Vol]101 mmol/L Yidaix07-107PbfylnxloAvita Health [facility] on above:Order Comment: Specimen Type: BLOOD SPECIMENOrdering Facility: [facility] Address:[address] [place], [place] [address]Performed By: #### 95749-5, , 2776-04 ####[facility] LABIA [id number] [place]IL[place] [address] [place] AMERICACO2 [Moles/Vol]21 mmol/OCkl93-04 [facility] on above:Order Comment: Specimen Type: BLOOD SPECIMENOrdering Facility: [facility] Address:[address] [place], [place] [address]Performed By: #### 19537-6, , 2776-04 ####[facility] LABIA [id number] [place]ILLE [address] [place] AMERICACreatinine [Mass/Vol]0.66 mg/dLLow0.73-1.22 [facility] on above:Order Comment: Specimen Type: BLOOD SPECIMENOrdering Facility: [facility] Address:[address] [place], [place] [address]Performed By: #### 61864-7, , 2776-04 ####[facility] LABCLIA [id number] [place] [address] [place] AMERICAeGFRcr SerPlBld CKD-EPI 0689295 mL/min/1.73m??? Normal>=60[facility] on above:Order Comment: Specimen Type: BLOOD SPECIMENOrdering Facility: [facility] Address:[address] [place], [place] [address]Result Comment: Estimated Glomerular Filtration Rate (eGFR) is calculated using the 2020 CKD-EPI creatinine equation. This equation utilizes serum creatinine, sex, and age as parameters. The creatinine assay has traceable calibration to isotope dilution-mass spectrometry. Refer to KDIGO guidelines for clinical interpretation. In patients with unstable renal function, e.g. those with acute kidney injury, the eGFR may not accurately reflect actual GFR.Performed By: #### 71674-9, 03911-0, 2776- ####[facility] [id number] [place]ILLE [id number] [place] AMERICAGlucose [Mass/Vol]118 mg/cBWxed72-28EkwrgknjdAvita Health System [facility] on above:Order Comment: Specimen Type: BLOOD SPECIMENOrdering Facility: [facility] Address:[address] [place], [place] [address]Result Comment: The [place] Diabetes Association (ADA) provides guidance for cutoff [...] Standards of Medical Care in Diabetes 2016, [place] [employer]. Diabetes Care. 2016.39(Suppl 1).Performed By: #### 97667- 8, 02192-2, 2777- ####[facility] [id number] [address] [place] AMERICAPotassium [Moles/Vol] 4.4 mmol/LNormal3.7-5.1CTrinity Health System [facility] on above:Order Comment: Specimen Type: BLOOD SPECIMENOrdering Facility: [facility] Address:[address] [place], [place] [address]Performed By: #### 66526-7, 69243-3, 277- ####[facility] LABCLIA [id number] [place] [id number] [place] AMERICAProtein [Mass/Vol]5.3 g/dLLow 6.3-8.0[facility] on above:Order Comment: Specimen Type: BLOOD SPECIMENOrdering Facility: [facility] Address:[address] [place], [place] [address]Performed By: #### 41407-3, 70820-6, 277- ####[facility] LABCLIA [id number] VILLE [address] [facility] OF AMERICASodium [Moles/Vol]132 mmol/LLow 136-144[facility] on above:Order Comment: Specimen Type: BLOOD SPECIMENOrdering Facility: [facility] Address:[address] [place], [place] [address]Performed By: #### 05702-4, 93061-5, 2776-04 ####[facility] LABCLIA [id number] VILLE [id number] [place] AMERICAUrea nitrogen [Mass/Vol]20 mg/dL Normal9-24[facility] on above:Order Comment: Specimen Type: BLOOD SPECIMENOrdering Facility: [facility] Address:[address] [place], [place] [address]Performed By: #### 01748-4, 94068-7, 2776-1 ####[facility] LABCLIA [id number] [place] [id number] [place] AMERICAMagnesium SerPl-mCncon 01-13-2025 Magnesium [Mass/Vol]1.6 mg/dLLow1.7-2.3ClevelCarteret Health CareComment on above:Order Comment: Specimen Type: BLOOD SPECIMENOrdering Facility: [facility] Address:[address] [place], [place] [address]Performed By: #### 54038-8, 33977-9, 2777-1 ####[facility] LABCLIA [id number] [facility] [place] [id number] [facility] NURSING PROGon 13-68-6963SCPLROV PROGNormalMercy Health St. Vincent Medical CenterNUTRITIONon 44-55-8561JDCALRVTPFumnfgGbhllhagw Clinic ClevelandPhosphate SerPl-[facility] of Pittsburghon 86-96-9240Pnxbrfezr [Mass/Vol]4.1 mg/dLNormal2.7-4.8ClevelCarteret Health Care Comment on above:Order Comment: Specimen Type: BLOOD SPECIMENOrdering Facility: [facility] Address:[address] [place] [address] Performed By: #### 99362-9, 51199-4, 2777-1 ####[facility] LABCLIA [id number] [place] [id number] [facility] CENTERTHERAPY NTon 27-55-3084KFHMVMZ NTNormalCTuscarawas Hospital Tacrolimus Bld-ncon 81-04-5345Silhxorqsr (Bld) [Mass/Vol]9.2 ng/mLNormal 5.0-20.0[facility] on above:Order Comment: Specimen Type: BLOOD SPECIMENOrdering Facility: [facility] Address:[address] [place] [address]Oftour Comment: Individualized target levels for a given [...] situation. Test performed by chemiluminescent immunoassay using Pairin AliniRetrophin i.Performed By: #### 36160-8 ####[facility] LABCLIA [id number] [place] [address] [place] CBC W Auto Differential panel (Bld)on 06-56-6030Vwbadtcujftb Ql (Bld)Present NormalAvita Health [facility] on above:Order Comment: Specimen Type: BLOOD SPECIMENOrdering Facility: [facility] Address:[address] [place], [place] [address]Performed By: #### 21917-4 ####[facility] LABCLIA [id number] [place] [address] [place] AMERICABasophils (Bld) [#/Vol]0.00 10*3/uLNormal<0.11ClevelFostoria City Hospital on above:Order Comment: Specimen Type: BLOOD SPECIMENOrdering Facility: [facility] Address:[address] [place], [place] [address]Performed By: #### 06607-0 ####[facility] LABIA [id number] [place] [address] [place] Basophils/100 WBC (Bld)0.0 %NormalAvita Health [facility] on above: Order Comment: Specimen Type: BLOOD SPECIMENOrdering Facility: [facility] Address:[address] [place], [place] [address]Performed By: #### 17741- 8 ####[facility] LABCLIA [id number] [place] [address] [place] AMERICADifferential cell count method Nom (Bld)ManualNormalClevelFostoria City Hospital on above:Order Comment: Specimen Type: BLOOD SPECIMENOrdering Facility: [facility] Address:[address] [place], [place] [address]Performed By: #### 33045-8 ####[facility] LABCLIA [id number] [place] [address] [place] AMERICAEosinophils (Bld) [#/Vol]0.11 10*3/uLNormal<0.46[facility] on above:Order Comment: Specimen Type: BLOOD SPECIMENOrdering Facility: [facility] Address:[address] [place], [place] [address]Performed By: #### 28901-2 ####[facility] LABCLIA [id number] [place] [address] [place] [facility] MEDICAL CENTEREosinophils/100 WBC (Bld)1.0 % NormalAvita Health [facility] on above:Order Comment: Specimen Type: BLOOD SPECIMENOrdering Facility: [facility] Address:[address] [place], [place] [address]Performed By: #### 94588-7 ####[facility] LABIA [id number] [address], [place] [address] [place] AMERICAErythrocyte distribution width (RBC) [Ratio]19.2 %High11.5-15.0 [facility] on above:Order Comment: Specimen Type: BLOOD SPECIMENOrdering Facility: [facility] Address:[address] [place], [place] [address]Performed By: #### 32790-1 ####[facility] LABIA [id number] [place] [address] [place] AMERICAHematocrit (Bld) [Volume fraction]24.3 %Low39.0-51.0[facility] on above:Order Comment: Specimen Type: BLOOD SPECIMENOrdering Facility: [facility] Address:[address] [place], [place] [address]Performed By: #### 51181-0 ####[facility] LABIA [id number] [place] [id number] [place] Hemoglobin (Bld) [Mass/Vol]7.3 g/dLLow13.0-17.0[facility] on above:Order Comment: Specimen Type: BLOOD SPECIMENOrdering Facility: [facility] Address:[address] [place], [place] [address] Performed By: #### 31289-6 ####[facility] LABCLIA [id number] [place] [address] [place] [facility] Lymphocytes (Bld) [#/Vol]0.54 10*3/uLLow1.00-4.00[facility] Comment on above:Order Comment: Specimen Type: BLOOD SPECIMENOrdering Facility: [facility] Address:[address] [place] [address] Performed By: #### 10898-9 ####[facility] LABCLIA [id number] [address] STATES OF [facility] Lymphocytes/100 WBC (Bld)5.0 %NormalMercy Health St. Vincent Medical CenterComment on above: Order Comment: Specimen Type: BLOOD SPECIMENOrdering Facility: [facility] Address:[address] [place], [place] [address]Performed By: #### 57033- 8 ####[facility] LABCLIA [id number] [address] (RBC) [Entitic mass]30.5 pg Fjogsc13.0-34.0[facility] Vincent Medical CenterComment on above:Order Comment: Specimen Type: BLOOD SPECIMENOrdering Facility: [facility] Address:[address] [place], [place] [address]Performed By: #### 69477-1 ####[facility] LABCLIA [id number] [address] (RBC) [Mass/Vol]30.0 g/dLLow 30.5-36.0[facility] Vincent Medical CenterComsheridan community hospital on above:Order Comment: Specimen Type: BLOOD SPECIMENOrdering Facility: [facility] Address:[address] [place], [place] [address]Performed By: #### 55653-4 ####[facility] LABCLIA [id number] [address] AV[address]QNHWSMJMS, [place] [address] [place] AMERICAMCV (RBC) [Entitic vol]101.7 sERvbi98.0-100.0[facility] on above:Order Comment: Specimen Type: BLOOD SPECIMENOrdering Facility: [facility] Address:[address] [place], [place] [address]Performed By: #### 09827-0 ####[facility] LABCLIA [id number] [address], [place] [address] [place] AMERICAMetamyelocytes/100 WBC (Bld)1.0 %NormalAvita Health [facility] on above:Order Comment: Specimen Type: BLOOD SPECIMENOrdering Facility: [facility] Address:[address] [place] [address] Performed By: #### 44759-8 ####[facility] LABCLIA [id number] [address], [place] [address] [place] Monocytes (Bld) [#/Vol]1.18 10*3/uLHigh<0.87[facility] on above:Order Comment: Specimen Type: BLOOD SPECIMENOrdering Facility: [facility] Address:[address] [place], [place] [address]Performed By: #### 90293-2 ####[facility] LABCLIA [id number] [address], [place] [address] [place] AMERICAMonocytes/100 WBC (Bld)11.0 %NormalAv[facility] on above:Order Comment: Specimen Type: BLOOD SPECIMENOrdering Facility: [facility] Address:[address] [place], [place] [address]Performed By: #### [id number] ####[facility] LABCLIA [id number] [place] [id number] [place] AMERICAMYELO%1.0 %NormalAv[facility] on above:Order Comment: Specimen Type: BLOOD SPECIMENOrdering Facility: [facility] Address:[address] [place], [place] [address]Performed By: #### [id number] ####[facility] LABCLIA [id number] [address], [place] [address] [place] Neutrophils (Bld) [#/Vol]8.68 10*3/uLHigh1.45-7.50[facility] Comment on above:Order Comment: Specimen Type: BLOOD SPECIMENOrdering Facility: [facility] Address:[address] [place] [address] Performed By: #### 90591-9 ####[facility] LABCLIA [id number] [address], [place] [address] [place] Neutrophils/100 WBC (Bld)81.0 %NormalAv[facility] on above: Order Comment: Specimen Type: BLOOD SPECIMENOrdering Facility: [facility] Address:[address] [place], [place] [address]Performed By: #### [id number]- 8 ####[facility] LABIA [id number] [place] [address] [place] AMERICANucleated RBC (Bld) [#/Vol] 10*3/uLNormal<0.01[facility] on above:Order Comment: Specimen Type: BLOOD SPECIMENOrdering Facility: [facility] Address:[address] [place], [place] [address]Performed By: #### 70608-1 ####[facility] LABIA [id number] [place] [address] [place] AMERICANucleated RBC/100 WBC (Bld) [Ratio]0.0 /100 WBCNormalCTrinity Health System East [facility] on above:Order Comment: Specimen Type: BLOOD SPECIMENOrdering Facility: [facility] Address:[address] [place], [place] [address]Performed By: #### 40523- 8 ####[facility] LABCLIA [id number] [address], [facility]95 [place] OF AMERICAOvalocytes LM Ql (Bld)FewNormal [facility] on above:Order Comment: Specimen Type: BLOOD SPECIMENOrdering Facility: [facility] Address:[address] [place], [place] [address]Performed By: #### 91645-6 ####[facility] LABCLIA [id number] [place] [address] [place] OF AMERICAPlatelet mean volume (Bld) [Entitic vol]10.1 fLNormal9.0-12.7CTrinity [facility] on above:Order Comment: Specimen Type: BLOOD SPECIMENOrdering Facility: [facility] Address:[address] [place], [place] [address]Performed By: #### 94460-9 ####[facility] LABIA [id number] [place] [address] [place] AMERICAPlatelets (Bld) [#/Vol]371 10*3/rXBauwrl632-403BmqkbimnzMercy Health St. [facility] Comment on above:Order Comment: Specimen Type: BLOOD SPECIMENOrdering Facility: [facility] Address:[address] [place] [address] Performed By: #### 53312-6 ####[facility] LABIA [id number] [place] [address] [place] Platelets Estimate (Bld) [#/Vol]AdequateNormalCTrinity Health System [facility] on above:Order Comment: Specimen Type: BLOOD SPECIMENOrdering Facility: [facility] Address:[address] [place] [address] Performed By: #### 55102-0 ####[facility] LABIA [id number] [place] [id number] [place] RBC (Bld) [#/Vol]2.39 10*6/uLLow4.20-6.00[facility] on above:Order Comment: Specimen Type: BLOOD SPECIMENOrdering Facility: [facility] Address:[address] [place], [place] [address]Performed By: #### 82094-9 ####[facility] LABCLIA [id number] [address] [place] [address] [place] OF AMERICARED CELL MORPH Reviewed: see results of individual [facility] Comment on above:Order Comment: Specimen Type: BLOOD SPECIMENOrdering Facility: [facility] Address:[address] [place] [address] Performed By: #### 61017-2 ####[facility] LABCLIA [id number] [place] [id number] [place] WBC (Bld) [#/Vol]10.71 10*3/uLNormal3.70-11.00[facility] Vincent Medical CenterComment on above:Order Comment: Specimen Type: BLOOD SPECIMENOrdering Facility: [facility] Address:[address] [place] [address] Performed By: #### 38084-7 ####[facility] LABCLIA [id number] [place] [address] [place] WBC Left Shift Ql (Bld)[facility], MD, Cancer CenterComment on above: Order Comment: Specimen Type: BLOOD SPECIMENOrdering Facility: [facility] Address:[address] [place], [place] [address]Performed By: #### 24920- 8 ####[facility] LABCLIA [id number] [place] [id number] [place] OF AMERICAComprehensive metabolic 2000 panelon 90-04-8774Sybuvfl [Mass/Vol]2.1 g/dLLow3.9-4.9CTuscarawas Hospital Comment on above:Order Comment: Specimen Type: BLOOD SPECIMENOrdering Facility: [facility] Address:[address] [place] [address] Performed By: #### 03204-0, 91831-0, 2777-1 ####[facility] LABCLIA [id number] VILLE [id number] [place] AMERICAALP [Catalytic activity/Vol]300 U/DIxmk84-065LjuvgwpleMercy Health St. [facility] Comment on above:Order Comment: Specimen Type: BLOOD SPECIMENOrdering Facility: [facility] Address:[address] [place] [address] Performed By: #### 08481-9, , 2776-04 ####[facility] LABCLIA [id number] [address] [address] [place] OF AMERICAALT [Catalytic activity/Vol]30 U/EFirscn76-22VecqieapeMercy Health St. [facility] Center Comment on above:Order Comment: Specimen Type: BLOOD SPECIMENOrdering Facility: [facility] Address:[address] [place] [address] Performed By: #### 35094-9, , 2776-04 ####[facility] LABCLIA [id number] [place] [id number] [place] AMERICAAnion gap [Moles/Vol]12 mmol/LNormal8-15[facility]. Vincent Medical CenterComment on above:Order Comment: Specimen Type: BLOOD SPECIMENOrdering Facility: [facility] Address:[address] [place] [address] Performed By: #### 17027-7, , 2776-04 ####[facility] LABCLIA [id number] [address] [address] [place] AMERICAAST [Catalytic activity/Vol]27 U/IEzbisu02-52BlzqrzajaMercy Health St. [facility] Center Comment on above:Order Comment: Specimen Type: BLOOD SPECIMENOrdering Facility: [facility] Address:[address] [place], [place] [address] Performed By: #### 79297-8, , 2776-04 ####[facility] LABCLIA [id number] [address] [address] [place] AMERICABilirubin [Mass/Vol]0.3 mg/dLNormal0.2-1.3CTuscarawas Hospital Comment on above:Order Comment: Specimen Type: BLOOD SPECIMENOrdering Facility: [facility] Address:[address] [place], [place] [address] Performed By: #### 66626-3, 93827-7, 2776-04 ####[facility] LABCLIA [id number] [address] [place] AMERICACalcium [Mass/Vol]8.7 mg/dLNormal8.5-10.2ClevelCarteret Health Care Comment on above:Order Comment: Specimen Type: BLOOD SPECIMENOrdering Facility: [facility] Address:[address] [place], [place] [address] Performed By: #### 87249-2, , 2776-04 ####[facility] LABCLIA [id number] VILLE [id number] [place] AMERICAChloride [Moles/Vol]101 mmol/JMxoccm95-610TocwuovswMercy Health St. [facility] Center Comment on above:Order Comment: Specimen Type: BLOOD SPECIMENOrdering Facility: [facility] Address:[address] [place], [place] [address] Performed By: #### 40448-6, , 2776-04 ####[facility] LABCLIA [id number] [place]IL[place] [id number] [place] AMERICACO2 [Moles/Vol]23 mmol/PSopgir85-94FjjqigxchMercy Health St. Vincent Medical CenterComment on above:Order Comment: Specimen Type: BLOOD SPECIMENOrdering Facility: [facility] Address:[address] [place], [place] [address]Performed By: #### 12303-2, , 2776-04 ####[facility] LABCLIA [id number] [address] [place] Creatinine [Mass/Vol]0.71 mg/dLLow0.73-1.22[facility] St. Vincent Medical CenterComment on above:Order Comment: Specimen Type: BLOOD SPECIMENOrdering Facility: [facility] Address:[address] [place], [place] [address]Performed By: #### 04226-5, 70649-9, 2776-04 ####[facility] LABCLIA [id number] VILLE [address] [place] eGFRcr SerPlBld CKD-EPI 204906 mL/min/1.73m???Normal>=60[facility] on above:Order Comment: Specimen Type: BLOOD SPECIMENOrdering Facility: [facility] Address:[address] [place], [place] [address]Result Comment: Estimated Glomerular Filtration Rate (eGFR) is [...] accurately reflect actual GFR. Performed By: #### 03171-3, , 2776-04 ####[facility] LABIA [id number] VILLE [id number] [place] [facility] MEDICAL CENTERGlucose [Mass/Vol]119 mg/uUVwmd34-80YftuihwxrAvita [facility] System [facility] on above:Order Comment: Specimen Type: BLOOD SPECIMENOrdering Facility: [facility] Address:[address] [place], [place] [address]Result Comment: The [place] Diabetes Association (ADA) provides guidance for cutoff [...] Standards of Medical Care in Diabetes 2016, [place] [employer]. Diabetes Care. 2016.39(Suppl 1).Performed By: #### 35038-5, 13473-4, 2776-04 ####[facility] LABCLIA [id number] [address] [place] AMERICAPotassium [Moles/Vol]4.4 mmol/LNormal3.7-5.1 [facility] on above:Order Comment: Specimen Type: BLOOD SPECIMENOrdering Facility: [facility] Address:[address] [place], [place] [address]Performed By: #### 20897-5, , 2776-04 ####[facility] LABIA [id number] [address] [place] AMERICAProtein [Mass/Vol]5.3 g/dLLow6.3-8.0[facility] on above:Order Comment: Specimen Type: BLOOD SPECIMENOrdering Facility: [facility] Address:[address] [place], [place] [address]Performed By: #### 84834-3, 04849-0, 2776-04 ####[facility] LABIA [id number] VILLE [id number] [place] AMERICASodium [Moles/Vol]136 mmol/FRfiueb649-200LkiprgkhzAvita Health System [facility] on above:Order Comment: Specimen Type: BLOOD SPECIMENOrdering Facility: [facility] Address:[address] [place], [place] [address]Performed By: #### 94774-5, , 2776-04 ####[facility] LABIA [id number] [address] [place] AMERICAUrea nitrogen [Mass/Vol]17 mg/dLNormal9-24 [facility] on above:Order Comment: Specimen Type: BLOOD SPECIMENOrdering Facility: [facility] Address:[address] [place], [place] [address]Performed By: #### 11368-3, 19759-5, 2776-04 ####[facility] LABCLIA [id number] [place] [id number] [place] AMERICAMagnesium SerPl-mCncon 51-35-4437Nebvkhair [Mass/Vol]1.9 mg/dLNormal1.7-2.3ClevelFostoria City Hospital on above:Order Comment: Specimen Type: BLOOD SPECIMENOrdering Facility: [facility] Address:[address] [place], [place] [address]Performed By: #### 40311- 8, 40184-5, 2777-1 ####[facility] LABCLIA [id number] [place] [address] [place] AMERICAPhosphate SerPl-mCnc on 66-58-8063Szukqggkk [Mass/Vol]4.5 mg/dLNormal2.7-4.8ClevelFostoria City Hospital on above:Order Comment: Specimen Type: BLOOD SPECIMENOrdering Facility: [facility] Address:[address] [place], [place] [address]Performed By: #### 77845-7, 47879-4, 2777-1 ####[facility] LABCLIA [id number] [address] [place] AMERICATYPE + SCREENon 48-50-0383MFIOAoedcoOlmcrlgzx [facility] Comment on above:Order Comment: Specimen Type: BLOOD SPECIMENOrdering Facility: [facility] Address:[address] [place] [address] Performed By: #### TSCR ####CC MAIN BLOOD BANKCLIA [id number] [place] [id number] [place] OF AMERICARh Nom (Bld)Positive NormalAvita Health System [facility] on above:Order Comment: Specimen Type: BLOOD SPECIMENOrdering Facility: [facility] Address:[address] [place], [place] [address]Performed By: #### TSCR ####[facility] MAIN BLOOD BANKCLIA [id number] [place] [address] [place] AMERICATYPE AND SCREEN NZQZVRKARR99/01/2025 23:59NormalCTrinity Health [facility] on above:Order Comment: Specimen Type: BLOOD SPECIMENOrdering Facility: [facility] Address:[address] [place], [place] [address]Performed By: #### TSCR ####[facility] BLOOD BANKIA [id number] [place] [address] [place] SYCAMORE MEDICAL CENTERTacrolimus Bld-mCncon 19-07-7886Lauiatqufo (Bld) [Mass/Vol]10.6 ng/mLNormal5.0-20.0[facility] on above:Order Comment: Specimen Type: BLOOD SPECIMENOrdering Facility: [facility] Address:[address] [place], [place] [address]Result Comment: Individualized target levels for a given [...] situation. Test performed by chemiluminescent immunoassay using Pairin Alinity i.Performed By: #### 48326-5 ####[facility] LABCLIA [id number] [place] [id number] [place] AMERICACBC W Auto Differential panel (Bld)on 71-47-8492Gjjeeuxppxrt Ql (Bld)PresentNoSelect Medical Specialty Hospital [facility] Comment on above:Order Comment: Specimen Type: BLOOD SPECIMENOrdering Facility: [facility] Address:[address] [place] [address] Performed By: #### 06994-6 ####[facility] LABIA [id number] [place] [id number] [place] Basophils (Bld) [#/Vol]0.11 10*3/uLHigh<0.11CTrinity Health [facility] on above:Order Comment: Specimen Type: BLOOD SPECIMENOrdering Facility: [facility] Address:[address] [place], [place] [address]Performed By: #### 59233-2 ####[facility] LABCLIA [id number] [place] [address] [place] AMERICABasophils/100 WBC (Bld)0.9 %NormalAvita Health System [facility] on above:Order Comment: Specimen Type: BLOOD SPECIMENOrdering Facility: [facility] Address:[address] [place], [place] [address]Performed By: #### 43648-1 ####[facility] LABIA [id number] [place] [address] [place] AMERICADifferential cell count method Nom (Bld)ManualNormalCTrinity Health System [facility] Campus on above:Order Comment: Specimen Type: BLOOD SPECIMENOrdering Facility: [facility] Address:[address] [place], [place] [address]Performed By: #### 22586-9 ####[facility] LABIA [id number] [place] [address] [place] AMERICAEosinophils (Bld) [#/Vol]0.00 10*3/uLNormal<0.46[facility] on above:Order Comment: Specimen Type: BLOOD SPECIMENOrdering Facility: [facility] Address:[address] [place], [place] [address]Performed By: #### 78489-7 ####[facility] LABIA [id number] [place] [address] [place] AMERICAEosinophils/100 WBC (Bld)0.0 % NormalAvita Health System [facility] on above:Order Comment: Specimen Type: BLOOD SPECIMENOrdering Facility: [facility] Address:[address] [place], [place] [address]Performed By: #### 61683-0 ####[facility] LABIA [id number] [place] [address] [place] AMERICAErythrocyte distribution width (RBC) [Ratio]19.0 %High11.5-15.0 [facility] on above:Order Comment: Specimen Type: BLOOD SPECIMENOrdering Facility: [facility] Address:[address] [place], [place] [address]Performed By: #### 42211-1 ####[facility] [id number] [place] [address] [place] AMERICAHematocrit (Bld) [Volume fraction]24.0 %Low39.0-51.0[facility] on above:Order Comment: Specimen Type: BLOOD SPECIMENOrdering Facility: [facility] Address:[address] [place], [place] [address]Performed By: #### 75278-6 ####[facility] [id number] [place] [address] [place] Hemoglobin (Bld) [Mass/Vol]7.8 g/dLLow13.0-17.0[facility] on above:Order Comment: Specimen Type: BLOOD SPECIMENOrdering Facility: [facility] Address:[address] [place] [address] Performed By: #### 06668-9 ####[facility] LABIA [id number] [place] [address] [place] Lymphocytes (Bld) [#/Vol]0.32 10*3/uLLow1.00-4.00[facility] Comment on above:Order Comment: Specimen Type: BLOOD SPECIMENOrdering Facility: [facility] Address:[address] [place] [address] Performed By: #### 81398-9 ####[facility] LABIA [id number] [place] [address] [place] Lymphocytes/100 WBC (Bld)2.7 %NormalAvita Health System [facility] on above: Order Comment: Specimen Type: BLOOD SPECIMENOrdering Facility: [facility] Address:[address] [place], [place] [address]Performed By: #### 23587- 8 ####[facility] LABCLIA [id number] [address] (RBC) [Entitic mass]32.1 pg Ddrhbw18.0-34.0[facility] on above:Order Comment: Specimen Type: BLOOD SPECIMENOrdering Facility: [facility] Address:[address] [place], [place] [address]Performed By: #### 75682-2 ####[facility] LABIA [id number] [address], [address] (RBC) [Mass/Vol]32.5 g/dL Npiwwr30.5-36.0[facility] on above:Order Comment: Specimen Type: BLOOD SPECIMENOrdering Facility: [facility] Address:[address] [place], [place] [address]Performed By: #### 18459-1 ####[facility] LABIA [id number] [address] (RBC) [Entitic vol]98.8 fL Gmgdns88.0-100.0[facility] on above:Order Comment: Specimen Type: BLOOD SPECIMENOrdering Facility: [facility] Address:[address] [place], [place] [address]Performed By: #### 44699-5 ####[facility] LABIA [id number] [address], [facility]95 CITIZENS BAPTISTMonocytes (Bld) [#/Vol]1.17 10*3/uLHigh<0.87[facility] on above:Order Comment: Specimen Type: BLOOD SPECIMENOrdering Facility: [facility] Address:[address] [place], [place] [address]Performed By: #### 37831-6 ####[facility] LABIA [id number] [address] [address] [place] AMERICAMonocytes/100 WBC (Bld)9.9 % NormalAvita Health System Bu[facility] on above:Order Comment: Specimen Type: BLOOD SPECIMENOrdering Facility: [facility] Address:[address] [place], [place] [address]Performed By: #### 37190-9 ####[facility] LABCLIA [id number] [address], [facility]95 [place] AMERICAMYELO%0.9 %NormalAvita Health System [facility] on above: Order Comment: Specimen Type: BLOOD SPECIMENOrdering Facility: [facility] Address:[address] [place], [place] [address]Performed By: #### 68766- 8 ####[facility] LABCLIA [id number] [place] [address] [place] AMERICANeutrophils (Bld) [#/Vol]10.12 10*3/uLHigh1.45-7.50[facility] on above:Order Comment: Specimen Type: BLOOD SPECIMENOrdering Facility: [facility] Address:[address] [place], [place] [address]Performed By: #### 66184-9 ####[facility] LABCLIA [id number] [place] [id number] [place] AMERICANeutrophils/100 WBC (Bld)85.6 % NormalAvita Health System [facility] on above:Order Comment: Specimen Type: BLOOD SPECIMENOrdering Facility: [facility] Address:[address] [place], [place] [address]Performed By: #### 14806-6 ####[facility] LABCLIA [id number] [place] [address] [place] AMERICANucleated RBC (Bld) [#/Vol]10*3/uLNormal<0.01[facility] on above:Order Comment: Specimen Type: BLOOD SPECIMENOrdering Facility: [facility] Address:[address] [place], [place] [address]Performed By: #### 59261-2 ####[facility] LABIA [id number] [place] [address] [place] Nucleated RBC/100 WBC (Bld) [Ratio]0.0 /100 WBCNormalCTuscarawas Hospital Comment on above:Order Comment: Specimen Type: BLOOD SPECIMENOrdering Facility: [facility] Address:[address] [place] [address] Performed By: #### 38825-4 ####[facility] LABIA [id number] [place] [address] [place] Platelet mean volume (Bld) [Entitic vol]10.2 fLNormal9.0-12.7CTuscarawas HospitalComsheridan community hospital on above:Order Comment: Specimen Type: BLOOD SPECIMENOrdering Facility: [facility] Address:[address] [place], [place] [address]Performed By: #### 95665-0 ####[facility] LABIA [id number] [place] [id number] [place] Platelets (Bld) [#/Vol]366 10*3/tWPdsmxb624-881PmvryzqplMercy Health St. Vincent Medical CenterComment on above:Order Comment: Specimen Type: BLOOD SPECIMENOrdering Facility: [facility] Address:[address] [place] [address] Performed By: #### 34330-1 ####[facility] LABIA [id number] [place] [id number] [place] Platelets Estimate (Bld) [#/Vol]AdequateNormalCTuscarawas HospitalComsheridan community hospital on above:Order Comment: Specimen Type: BLOOD SPECIMENOrdering Facility: [facility] Address:[address] [place] [address] Performed By: #### 16213-1 ####[facility] LABIA [id number] [address] AV[address]ED[address]FIIF[place], [place] [address] [place] Polychromasia LM Ql (Bld)SlightNormalCTrinity Health System East Campus on above: Order Comment: Specimen Type: BLOOD SPECIMENOrdering Facility: [facility] Address:[address] [place], [place] [address]Performed By: #### 15641- 8 ####[facility] LABCLIA [id number] [address] [place] [address] [place] SYCAMORE MEDICAL CENTERRBC (Bld) [#/Vol]2.43 10*6/uLLow 4.20-6.00[facility] Vincent Medical CenterComment on above:Order Comment: Specimen Type: BLOOD SPECIMENOrdering Facility: [facility] Address:[address] [place], [place] [address]Performed By: #### 93705-2 ####[facility] LABCLIA [id number] [place] [id number] [place] [facility] HOSPITALRBC FRAGMENTSFewAbnormalNone SeenAvita Health System Bucy[facility] Hospital on above:Order Comment: Specimen Type: BLOOD SPECIMENOrdering Facility: [facility] Address:[address] [place], [place] [address]Performed By: #### 16027-1 ####[facility] LABCLIA [id number] [place] [id number] [place] RED CELL MORPHReviewed: see results of individual morphologiesBlanchard Valley Health [facility] on above:Order Comment: Specimen Type: BLOOD SPECIMENOrdering Facility: [facility] Address:[address] [place], [place] [address]Performed By: #### 62044-1 ####[facility] LABCLIA [id number] [address] [place] [address] [place] SYCAMORE MEDICAL CENTERWBC (Bld) [#/Vol]11.82 10*3/uLHigh3.70-11.00[facility] Comment on above:Order Comment: Specimen Type: BLOOD SPECIMENOrdering Facility: [facility] Address:[address] [place] [address] Performed By: #### 33101-0 ####[facility] LABCLIA [id number] [place] [id number] [place] WBC Left Shift Ql (Bld)PresentNormalClevelFostoria City Hospital on above: Order Comment: Specimen Type: BLOOD SPECIMENOrdering Facility: [facility] Address:[address] [place], [place] [address]Performed By: #### 27249- 8 ####[facility] LABCLIA [id number] [place] [id number] [place] OF AMERICACCF BACTERIA BLD CULTon [id number] BACTERIA BLD CULT CULTURE, BLOOD: No growth 5 days NOM[facility] HealthcareOriginal Ordering Provider: XUAN MORIN HealthcareCRP SerPl-ncon [id number] [Mass/Vol]23.9 mg/dLHigh<0.9ClevelFostoria City Hospital on above:Order Comment: Specimen Type: BLOOD SPECIMENOrdering Facility: [facility] Address:[address] [place], [place] [address]Performed By: #### 24608-5, 1987-08, , 2776-04 ####[facility] LABCLIA [id number] [place] [address] [place] AMERICAComprehensive metabolic 2000 panelon 62-93-4288Crlrhyv [Mass/Vol]2.2 g/dLLow3.9-4.9ClevelCarteret Health Care Comment on above:Order Comment: Specimen Type: BLOOD SPECIMENOrdering Facility: [facility] Address:[address] [place] [address] Performed By: #### 12603-1, 1987-08, , 2776-04 ####[facility] LABCLIA [id number] [place] [id number] [place] AMERICAALP [Catalytic activity/Vol]321 U/FShqw60-762HmttuaxycAvita Health System [facility] on above:Order Comment: Specimen Type: BLOOD SPECIMENOrdering Facility: [facility] Address:[address] [place], [place] [id number] By: #### 55881-3, 1987-08, , 2776-04 ####[facility] LABCLIA [id number] [place] [id number] [place] AMERICA[place] [Catalytic activity/Vol]31 U/ZLrupxu37-20MimjpwxlqAvita Health System [facility] on above:Order Comment: Specimen Type: BLOOD SPECIMENOrdering Facility: [facility] Address:[address] [place], [place] [address]Performed By: #### 10100-6, 1987-08, , 2776-04 ####[facility] LABCLIA [id number] [place] [id number] [place] OF AMERICAAnion gap [Moles/Vol]12 mmol/L Normal8-15[facility] on above:Order Comment: Specimen Type: BLOOD SPECIMENOrdering Facility: [facility] Address:[address] [place], [place] [address]Performed By: #### 14701-7, 1987-08, , 2776-04 ####[facility] LABIA [id number] [place] [address] [place] AMERICAAST [Catalytic activity/Vol]28 U/VZkkqdv91-16MixxrqbypAv[facility] on above:Order Comment: Specimen Type: BLOOD SPECIMENOrdering Facility: [facility] Address:[address] [place], [place] [address]Performed By: #### 87896-3, 1987-08, , 2776-04 ####[facility] LABIA [id number] [place] [id number] [place] AMERICABilirubin [Mass/Vol]0.4 mg/dL Normal0.2-1.3CTr[facility] on above:Order Comment: Specimen Type: BLOOD SPECIMENOrdering Facility: [facility] Address:[address] [place] [address]85[address]Jxawkrfqz By: #### 24268-9, 1987-08, , 2776-04 ####[facility] LABCLIA [id number] [address] [address] [place] AMERICACalcium [Mass/Vol]8.5 mg/dL Normal8.5-10.2CTr[facility] on above:Order Comment: Specimen Type: BLOOD SPECIMENOrdering Facility: [facility] Address:[address] [place] [address]0412Ijlnixlfy By: #### 01761-5, 1987-08, , 2776-04 ####[facility] LABCLIA [id number] [place] [id number] [place] AMERICAChloride [Moles/Vol]102 mmol/L Wphezf45-304AyakqhxwyAvita [facility] on above:Order Comment: Specimen Type: BLOOD SPECIMENOrdering Facility: [facility] Address:[address] [place] [address] 15199Gneiiogwi By: #### 76681-2, 1987-08, , 2776-04 ####[facility] LABCLIA [id number] [place] [id number] [place] AMERICACO2 [Moles/Vol]22 mmol/LNormal 22-30[facility] on above:Order Comment: Specimen Type: BLOOD SPECIMENOrdering Facility: [facility] Address:[address] [place] [address] 17268Uadchqpdc By: #### 95233-8, 1987-08, , 2776-04 ####[facility] LABCLIA [id number] [address] [address] [place] AMERICACreatinine [Mass/Vol]0.62 mg/dL Low0.73-1.22[facility] on above:Order Comment: Specimen Type: BLOOD SPECIMENOrdering Facility: [facility] Address:[address] [place], [place] [address]Performed By: #### 42939-7, 1987-08, , 2776-04 ####[facility] LABIA [id number] [place] [id number] [place] OF AMERICAeGFRcr SerPlBld CKD-EPI 5029239 mL/min/1.73m???Normal>=60[facility] on above:Order Comment: Specimen Type: BLOOD SPECIMENOrdering Facility: [facility] Address:[address] [place], [place] [address]Result Comment: Estimated Glomerular Filtration Rate (eGFR) is [...] not accurately reflect actual GFR.Performed By: #### 78260-8, 1987-08, , 2776-04 ####[facility] LABIA [id number] [place] [id number] [place] AMERICAGlucose [Mass/Vol]105 mg/jXUmuh76-57XtmpfmshlAvita [facility] on above:Order Comment: Specimen Type: BLOOD SPECIMENOrdering Facility: [facility] Address:[address] [place], [place] [address]Result Comment: The [place] Diabetes [employer] (ADA) provides guidance for cutoff [...] Standards of Medical Care in Diabetes 2016, [place] [employer]. Diabetes Care. 2016.39(Suppl 1). Performed By: #### 25352-3, 1987-08, , 2776-04 ####[facility] LABCLIA [id number] [place] [id number] [place] AMERICAPotassium [Moles/Vol]4.1 mmol/LNormal3.7-5.1CTr[facility] on above:Order Comment: Specimen Type: BLOOD SPECIMENOrdering Facility: [facility] Address:[address] [place], [place] [address]Performed By: #### 53070-5, 1987-08, , 2776-04 ####[facility] LABIA [id number] [place] [address] [place] AMERICAProtein [Mass/Vol]5.3 g/dLLow6.3-8.0[facility] on above:Order Comment: Specimen Type: BLOOD SPECIMENOrdering Facility: [facility] Address:[address] [place], [place] [address]Performed By: #### 75075-7, 1987-08, , 2776-04 ####[facility] [id number] [place] [id number] [place] AMERICASodium [Moles/Vol]136 mmol/EPvmpgr055-661AisijjxbpAvita [facility] on above:Order Comment: Specimen Type: BLOOD SPECIMENOrdering Facility: [facility] Address:[address] [place], [place] [address]Performed By: #### 51888-4, 1987-08, , 2776-04 ####[facility] [id number] [place] [id number] [place] AMERICAUrea nitrogen [Mass/Vol]19 mg/dL Normal9-24[facility] on above:Order Comment: Specimen Type: BLOOD SPECIMENOrdering Facility: [facility] Address:[address] [place], [place] [address]Performed By: #### 03406-6, 1987-08, , 2776-04 ####[facility] LABCLIA [id number] [place] [id number] [place] AMERICAMagnesium SerPl-mCncon 56-78-8184Skmebrzuc [Mass/Vol]1.5 mg/dLLow1.7-2.3CTuscarawas Hospital Comment on above:Order Comment: Specimen Type: BLOOD SPECIMENOrdering Facility: [facility] Address:[address] [place], [place] [address] Performed By: #### 29479-2, 1987-08, , 2776-04 ####[facility] LABCLIA [id number] [place] [id number] [place] AMERICAPhosphate SerPl-ncon 50-46-3129Lkgsglxhx [Mass/Vol]4.5 mg/dL Normal2.7-4.8ClevelCarteret Health CareComment on above:Order Comment: Specimen Type: BLOOD SPECIMENOrdering Facility: [facility] Address:[address] [place], [place] [address]Performed By: #### 97416-9, 1987-08, , 2776-04 ####[facility] LABIA [id number] [place] [id number] [place] AMERICATacrolimus Bld-mCncon 01-11-2025 Tacrolimus (Bld) [Mass/Vol]8.9 ng/mLNormal5.0-20.0[facility] Comment on above:Order Comment: Specimen Type: BLOOD SPECIMENOrdering Facility: [facility] Address:[address] [place], [place] [address]Result Comment: Individualized target levels for a given [...] situation. Test performed by chemiluminescent immunoassay using Pairin Alinity i.Performed By: #### 13284-8 ####[facility] LABIA [id number] [address] [address] [place] OF AMERICAXR ABDOMEN 1V SUPINEon 25-97-8218YY ABDOMEN 1V SUPINENormalCCincinnati Children's Hospital [facility] W Auto Differential panel (Bld)on 04-34-7009Hispecyxgbez Ql (Bld)PresentNoGrant Hospital on above:Order Comment: Specimen Type: BLOOD SPECIMENOrdering Facility: [facility] Address:[address] [place], [place] [address]Performed By: #### 65462-2 ####[facility] LABIA [id number] [address] [address] [place] AMERICABasophils (Bld) [#/Vol]0.00 10*3/uLNormal<0.11CTrinity [facility] on above:Order Comment: Specimen Type: BLOOD SPECIMENOrdering Facility: [facility] Address:[address] [place], [place] [address]Performed By: #### 84170- 8 ####[facility] LABIA [id number] [address] [address] [place] AMERICABasophils/100 WBC (Bld)0.0 % NormalAvita Health System [facility] on above:Order Comment: Specimen Type: BLOOD SPECIMENOrdering Facility: [facility] Address:[address] [place], [place] [address]Performed By: #### 65455-2 ####[facility] LABIA [id number] [place] [id number] [place] AMERICADifferential cell count method Nom (Bld)ManualNoGrant Hospital on above:Order Comment: Specimen Type: BLOOD SPECIMENOrdering Facility: [facility] Address:[address] [place], [place] [address]Performed By: #### 02052-1 ####[facility] LABCLIA [id number] [address], [place] [address] [place] AMERICAEosinophils (Bld) [#/Vol]0.00 10*3/uLNormal<0.46[facility] on above:Order Comment: Specimen Type: BLOOD SPECIMENOrdering Facility: [facility] Address:[address] [place], [place] [address]Performed By: #### 40379-5 ####[facility] LABIA [id number] [place] [address] [place]I Eosinophils/100 WBC (Bld)0.0 %NormalAv[facility] Health System [facility] on above: Order Comment: Specimen Type: BLOOD SPECIMENOrdering Facility: [facility] Address:[address] [place], [place] [address]Performed By: #### 98502- 8 ####[facility] LABIA [id number] [place] [address] [place] AMERICAErythrocyte distribution width (RBC) [Ratio]19.4 %High11.5-15.0[facility] on above:Order Comment: Specimen Type: BLOOD SPECIMENOrdering Facility: [facility] Address:[address] [place], [place] [address]Performed By: #### 94847- 8 ####[facility] LABIA [id number] [place] [address] [place] AMERICAHematocrit (Bld) [Volume fraction]27.6 %Low39.0-51.0[facility] on above:Order Comment: Specimen Type: BLOOD SPECIMENOrdering Facility: [facility] Address:[address] [place], [place] [address]Performed By: #### 18718- 8 ####[facility] LABIA [id number] [place] [address] [place] AMERICAHemoglobin (Bld) [Mass/Vol]8.4 g/dLLow13.0-17.0[facility] on above:Order Comment: Specimen Type: BLOOD SPECIMENOrdering Facility: [facility] Address:[address] [place], [place] [address]Performed By: #### 06745-3 ####[facility] LABCLIA [id number] [place] [address] [place] AMERICALymphocytes (Bld) [#/Vol]0.55 10*3/uLLow1.00-4.00[facility] on above:Order Comment: Specimen Type: BLOOD SPECIMENOrdering Facility: [facility] Address:[address] [place], [place] [address]Performed By: #### 93792-6 ####[facility] LABCLIA [id number] [place] [address] [place] AMERICALymphocytes/100 WBC (Bld)4.0 % NormalAvita Health System [facility] on above:Order Comment: Specimen Type: BLOOD SPECIMENOrdering Facility: [facility] Address:[address] [place], [place] [address]Performed By: #### 64553-5 ####[facility] LABCLIA [id number] [place] [address] [place] AMERICAMCH (RBC) [Entitic mass]31.3 cyLbstzi93.0-34.0[facility] on above:Order Comment: Specimen Type: BLOOD SPECIMENOrdering Facility: [facility] Address:[address] [place], [place] [address]Performed By: #### 44692-1 ####[facility] LABCLIA [id number] [place] [address] [place] MCHC (RBC) [Mass/Vol]30.4 g/dLLow30.5-36.0[facility] on above:Order Comment: Specimen Type: BLOOD SPECIMENOrdering Facility: [facility] Address:[address] [place], [place] [address]Performed By: #### 52432-6 ####[facility] LABCLIA [id number] [address], [place] [address] [place] AMERICAMCV (RBC) [Entitic vol]103.0 iSFtlx61.0-100.0[facility] on above:Order Comment: Specimen Type: BLOOD SPECIMENOrdering Facility: [facility] Address:[address] [place], [place] [address]Performed By: #### 87913- 8 ####[facility] LABCLIA [id number] [address], [place] [address] [place] AMERICAMetamyelocytes/100 WBC (Bld)2.0 % NormalAvita Health System [facility] on above:Order Comment: Specimen Type: BLOOD SPECIMENOrdering Facility: [facility] Address:[address] [place], [place] [address]Performed By: #### 94684-8 ####[facility] LABCLIA [id number] [address], [place] [address] [place] AMERICAMonocytes (Bld) [#/Vol]0.41 10*3/uLNormal<0.87[facility] on above:Order Comment: Specimen Type: BLOOD SPECIMENOrdering Facility: [facility] Address:[address] [place], [place] [address]Performed By: #### 64984-2 ####[facility] LABCLIA [id number] [address], [facility]95 [place] Monocytes/100 WBC (Bld)3.0 %NormalAvita Health System [facility] on above: Order Comment: Specimen Type: BLOOD SPECIMENOrdering Facility: [facility] Address:[address] [place], [place] [address]Performed By: #### 73931- 8 ####[facility] LABCLIA [id number] [address], [facility]95 [place] AMERICAMYELO%2.0 %NormalAvita Health System [facility] on above:Order Comment: Specimen Type: BLOOD SPECIMENOrdering Facility: [facility] Address:[address] [place], [place] [address]Performed By: #### 63771-4 ####[facility] LABCLIA [id number] [place] [address] [place] Neutrophils (Bld) [#/Vol]12.15 10*3/uLHigh1.45-7.50[facility] Comment on above:Order Comment: Specimen Type: BLOOD SPECIMENOrdering Facility: [facility] Address:[address] [place] [address] Performed By: #### 94094-7 ####[facility] LABCLIA [id number] [place] [address] [place] Neutrophils/100 WBC (Bld)89.0 %NormalAvita Health System [facility] on above: Order Comment: Specimen Type: BLOOD SPECIMENOrdering Facility: [facility] Address:[address] [place], [place] [address]Performed By: #### 05694- 8 ####[facility] LABCLIA [id number] [place] [address] [place] AMERICANucleated RBC (Bld) [#/Vol] 10*3/uLNormal<0.01[facility] on above:Order Comment: Specimen Type: BLOOD SPECIMENOrdering Facility: [facility] Address:[address] [place], [place] [address]Performed By: #### 92745-3 ####[facility] LABCLIA [id number] [place] [address] [place] AMERICANucleated RBC/100 WBC (Bld) [Ratio]0.0 /100 WBCNormalCTrinity Health System [facility] on above:Order Comment: Specimen Type: BLOOD SPECIMENOrdering Facility: [facility] Address:[address] [place], [place] [address]Performed By: #### 80334- 8 ####[facility] LABCLIA [id number] [place] [address] [place] AMERICAOvalocytes LM Ql (Bld)FewNormal [facility] Vincent Medical CenterComsheridan community hospital on above:Order Comment: Specimen Type: BLOOD SPECIMENOrdering Facility: [facility] Address:[address] [place], [place] [address]Performed By: #### 29954-5 ####[facility] LABIA [id number] [place] [address] [place] AMERICAPlatelet mean volume (Bld) [Entitic vol]10.6 fLNormal9.0-12.7ClevelFostoria City Hospital on above:Order Comment: Specimen Type: BLOOD SPECIMENOrdering Facility: [facility] Address:[address] [place], [place] [address]Performed By: #### 97153-2 ####[facility] LABIA [id number] [place] [address] [place] AMERICAPlatelets (Bld) [#/Vol]397 10*3/wITzgirc704-816VdaghtvqmMercy Health St. [facility] Comment on above:Order Comment: Specimen Type: BLOOD SPECIMENOrdering Facility: [facility] Address:[address] [place] [address] Performed By: #### 88510-9 ####[facility] LABCLIA [id number] [place] [address] [place] Platelets Estimate (Bld) [#/Vol]AdequateNormalCTrinity Health System [facility] on above:Order Comment: Specimen Type: BLOOD SPECIMENOrdering Facility: [facility] Address:[address] [place] [address] Performed By: #### 30648-5 ####[facility] LABCLIA [id number] [place] [id number] [place] Polychromasia LM Ql (Bld)SlightNormalCTrinity Health System [facility] on above: Order Comment: Specimen Type: BLOOD SPECIMENOrdering Facility: [facility] Address:[address] [place], [place] [address]Performed By: #### 41199- 8 ####[facility] LABCLIA [id number] [address] [place] [address] [place] AMERICARBC (Bld) [#/Vol]2.68 10*6/uLLow 4.20-6.00[facility] on above:Order Comment: Specimen Type: BLOOD SPECIMENOrdering Facility: [facility] Address:[address] [place], [place] [address]Performed By: #### 37895-2 ####[facility] LABCLIA [id number] [address] [place] [address] [place] AMERICARBC FRAGMENTSFewAbnormalNone SeenAvita Health System [facility] Hospital on above:Order Comment: Specimen Type: BLOOD SPECIMENOrdering Facility: [facility] Address:[address] [place], [place] [address]Performed By: #### 87570-6 ####[facility] LABCLIA [id number] [address] [place] [address] [place] RED CELL MORPHReviewed: see results of individual morphologiesBlanchard Valley Health [facility] on above:Order Comment: Specimen Type: BLOOD SPECIMENOrdering Facility: [facility] Address:[address] [place], [place] [address]Performed By: #### 10710-2 ####[facility] LABCLIA [id number] [address] [place] [address] [place] [facility] MEDICAL CENTERTarget cells LM Ql (Bld)FewNormalCTrinity Health System [facility] on above:Order Comment: Specimen Type: BLOOD SPECIMENOrdering Facility: [facility] Address:[address] [place], [place] [address]Performed By: #### 11605-5 ####[facility] LABCLIA [id number] [place] [address] [place] AMERICAWBC (Bld) [#/Vol]13.65 10*3/uLHigh3.70-11.00[facility] on above:Order Comment: Specimen Type: BLOOD SPECIMENOrdering Facility: [facility] Address:[address] [place], [place] [address]Performed By: #### 83711-1 ####[facility] LABCLIA [id number] [place] [address] [place] AMERICAWBC Left Shift Ql (Bld)Present NormalAvita Health [facility] on above:Order Comment: Specimen Type: BLOOD SPECIMENOrdering Facility: [facility] Address:[address] [place], [place] [address]Performed By: #### 01156-6 ####[facility] LABCLIA [id number] [place] [address] [place] AMERICACONSULT PROGon 30-59-8944MWQCBWR PROGNormalMercy Health St. Vincent Medical CenterComprehensive metabolic 2000 panelon 69-38-3797Eqkkhyi [Mass/Vol]2.2 g/dLLow3.9-4.9CTrinity [facility] on above:Order Comment: Specimen Type: BLOOD SPECIMENOrdering Facility: [facility] Address:[address] [place], [place] [address]Performed By: #### 25799-8, , 2776-04 ####[facility] LABCLIA [id number] [address] [place] AMERICAALP [Catalytic activity/Vol]347 U/CDsum44-863YhttrwkfsAvita Health System [facility] on above:Order Comment: Specimen Type: BLOOD SPECIMENOrdering Facility: [facility] Address:[address] [place], [place] [address]Performed By: #### 84126-6, 92313-2, 2776-1 ####[facility] LABCLIA [id number] AVENUEU.S. NAVAL HOSPITALK [address] [place] [address] [place] AMERICAALT [Catalytic activity/Vol]35 U/BTatzaz09-92OmtzxfiuuAvita Health [facility] on above:Order Comment: Specimen Type: BLOOD SPECIMENOrdering Facility: [facility] Address:[address] [place], [place] [address]Performed By: #### 53274-0, 91847-4, 2776-04 ####[facility] LABCLIA [id number] AVENUEBRENDA V[place] [id number] [place] AMERICAAnion gap [Moles/Vol]15 mmol/L Normal8-15[facility] on above:Order Comment: Specimen Type: BLOOD SPECIMENOrdering Facility: [facility] Address:[address] [place], [place] [address]Performed By: #### 10574-6, , 2776-04 ####[facility] LABCLIA [id number] [place] [id number] [place] AMERICAAST [Catalytic activity/Vol]38 U/LLhhted45-57BubzehgdkAvita Health System [facility] on above:Order Comment: Specimen Type: BLOOD SPECIMENOrdering Facility: [facility] Address:[address] [place], [place] [address]Performed By: #### 08866-2, , 2776-04 ####[facility] LABCLIA [id number] [place] [id number] [place] OF AMERICABilirubin [Mass/Vol]0.4 mg/dL Normal0.2-1.3CTrinity Health [facility] on above:Order Comment: Specimen Type: BLOOD SPECIMENOrdering Facility: [facility] Address:[address] [place], [place] [address]Performed By: #### 22838-7, 78858-5, 2776-04 ####[facility] LABCLIA [id number] [address] [place] [address] [place] AMERICACalcium [Mass/Vol]8.7 mg/dLNormal 8.5-10.2CTrinity Health [facility] on above:Order Comment: Specimen Type: BLOOD SPECIMENOrdering Facility: [facility] Address:[address] [place], [place] [address]Performed By: #### 48495-4, 08183-7, 2776-04 ####[facility] LABCLIA [id number] [address] [address] [place] AMERICAChloride [Moles/Vol]101 mmol/L Lqtkvr19-508MpffpsvztAvita Health System [facility] on above:Order Comment: Specimen Type: BLOOD SPECIMENOrdering Facility: [facility] Address:[address] [place], [place] [address]Performed By: #### 46224-8, , 2776-04 ####[facility] LABCLIA [id number] [address] [place] AMERICACO2 [Moles/Vol]19 mmol/LQet85-92 [facility] on above:Order Comment: Specimen Type: BLOOD SPECIMENOrdering Facility: [facility] Address:[address] [place], [place] [address]Performed By: #### 97681-5, , 2776-04 ####[facility] LABCLIA [id number] [address] [address] [place] AMERICACreatinine [Mass/Vol]0.68 mg/dLLow0.73-1.22 [facility] on above:Order Comment: Specimen Type: BLOOD SPECIMENOrdering Facility: [facility] Address:[address] [place], [place] [address]Performed By: #### 75603-1, , 2776-04 ####[facility] LABCLIA [id number] [address] [address] [place] AMERICAeGFRcr SerPlBld CKD-EPI 610612 mL/min/1.73m??? Normal>=60[facility] on above:Order Comment: Specimen Type: BLOOD SPECIMENOrdering Facility: [facility] Address:[address] [place] [id number] Comment: Estimated Glomerular Filtration Rate (eGFR) is calculated using the 2020 CKD-EPI creatinine equation. This equation utilizes serum creatinine, sex, and age as parameters. The creatinine assay has traceable calibration to isotope dilution-mass spectrometry. Refer to KDIGO guidelines for clinical interpretation. In patients with unstable renal function, e.g. those with acute kidney injury, the eGFR may not accurately reflect actual GFR.Performed By: #### 89121-0, 33619-2, 2776-04 ####[facility] LABIA [id number] [address] [place] AMERICAGlucose [Mass/Vol]99 mg/oMHlhlws14-48LcxaxekudAv[facility] on above:Order Comment: Specimen Type: BLOOD SPECIMENOrdering Facility: [facility] Address:[address] [place], [place] [address] [id number] Comment: The [place] [employer] (ADA) provides guidance for cutoff [...] Standards of Medical Care in Diabetes 2016, [place] [employer]. Diabetes Care. 2016.39(Suppl 1).Performed By: #### 96988- 8, , 2776-04 ####[facility] LABIA [id number] [address] [place] AMERICAPotassium [Moles/Vol] 4.4 mmol/LNormal3.7-5.1CT[facility] on above:Order Comment: Specimen Type: BLOOD SPECIMENOrdering Facility: [facility] Address:[address] [place], [place] [address]Performed By: #### 64135-8, 76769-5, 2776-04 ####[facility] LABCLIA [id number] [address] [place] OF AMERICAProtein [Mass/Vol]5.6 g/dLLow 6.3-8.0[facility] on above:Order Comment: Specimen Type: BLOOD SPECIMENOrdering Facility: [facility] Address:[address] [place], [place] [address]Performed By: #### 02549-0, 90136-4, 2776-04 ####[facility] LABCLIA [id number] VIL[place] [id number] [place] OF AMERICASodium [Moles/Vol]135 mmol/LLow 136-144[facility]itt[facility] Medical Centerment on above:Order Comment: Specimen Type: BLOOD SPECIMENOrdering Facility: [facility] Address:[address] [place], [place] [address]Performed By: #### 03638-2, 11825-7, 2776-04 ####[facility] LABIA [id number] VILLE [id number] [place] AMERICAUrea nitrogen [Mass/Vol]25 mg/dL High9-24[facility] on above:Order Comment: Specimen Type: BLOOD SPECIMENOrdering Facility: [facility] Address:[address] [place], [place] [address]Performed By: #### 08403-1, 23981-6, 2776-04 ####[facility] LABIA [id number] [address] [place] OF AMERICAMagnesium SerPl-mCncon 01-10-2025 Magnesium [Mass/Vol]1.7 mg/dLNormal1.7-2.3CTr[facility] on above:Order Comment: Specimen Type: BLOOD SPECIMENOrdering Facility: [facility] Address:[address] [place], [place] [address]Zrcxteycc By: #### 81435-2, 19465-4, 7-1 ####[facility] LABCLIA [id number] VILLE [id number] [facility] NURSING PROGon 88-52-4461EUUSUFE PROGNormalMercy Health St. Vincent Medical CenterPhosphate SerPl-ncon 63-80-3224Nfrtyxqui [Mass/Vol]4.0 mg/dLNormal2.7-4.8CTr[facility] on above:Order Comment: Specimen Type: BLOOD SPECIMENOrdering Facility: [facility] Address:[address] [place], [place] [address]Performed By: #### 71948-1, 76667-2, 27710-15 ####[facility] LABCLIA [id number]ETTHERAPY NTon 17-45-8944LHCTGQZ NTNormalCTuscarawas HospitalTHERAPY NTNormalCTuscarawas HospitalTacrolimus Bld-ncon 60-89-3467Klbjfuqclf (Bld) [Mass/Vol]9.7 ng/mLNormal5.0-20.0[facility] on above:Order Comment: Specimen Type: BLOOD SPECIMENOrdering Facility: [facility] Address:[address] [place], [place] [address]Result Comment: Individualized target levels for a given [...] situation. Test performed by chemiluminescent immunoassay using Pairin Alinity i.Performed By: #### 56827-9 ####[facility] LABCLIA [id number] [place] [address] [place] AMERICAXR ABDOMEN 1V SUPINEon 01-10-2025 XR ABDOMEN 1V SUPINENormalCTuscarawas HospitalXR ABDOMEN 1V SUPINENormal [facility] Medical CenterCASE MANAGEMon 84-65-6817TBOY MANAGEMNormalParkwood Hospital W Auto Differential panel (Bld)on 90-22-8221Vnooixvywprr Ql (Bld)PresentNormalCTrinity Health System [facility] on above:Order Comment: Specimen Type: BLOOD SPECIMENOrdering Facility: [facility] Address:[address] [place], [place] [address]Performed By: #### 20363-2 ####[facility] LABCLIA [id number] [place] [address] [place] AMERICABasophils (Bld) [#/Vol]0.20 10*3/uLHigh<0.11CTrinity [facility] on above:Order Comment: Specimen Type: BLOOD SPECIMENOrdering Facility: [facility] Address:[address] [place], [place] [address]Performed By: #### 80467-2 ####[facility] LABCLIA [id number] [place] [address] [place] AMERICABasophils/100 WBC (Bld)2.0 % NormalAv[facility] Health System [facility] on above:Order Comment: Specimen Type: BLOOD SPECIMENOrdering Facility: [facility] Address:[address] [place], [place] [address]Performed By: #### 67869-3 ####[facility] LABCLIA [id number] [place] [id number] [place] AMERICADifferential cell count method Nom (Bld)ManualNoGrant Hospital on above:Order Comment: Specimen Type: BLOOD SPECIMENOrdering Facility: [facility] Address:[address] [place], [place] [address]Performed By: #### 17169-8 ####[facility] LABCLIA [id number] [place] [id number] [place] AMERICAEosinophils (Bld) [#/Vol]0.00 10*3/uLNormal<0.46[facility] on above:Order Comment: Specimen Type: BLOOD SPECIMENOrdering Facility: [facility] Address:[address] [place], [place] [address]Performed By: #### 56477-8 ####[facility] LABIA [id number] [place] [address] [place]I Eosinophils/100 WBC (Bld)0.0 %NormalAvita Health System [facility] on above: Order Comment: Specimen Type: BLOOD SPECIMENOrdering Facility: [facility] Address:[address] [place], [place] [address]Performed By: #### 67656- 8 ####[facility] LABIA [id number] [address], [place] [address] [place] OF AMERICAErythrocyte distribution width (RBC) [Ratio]18.6 %High11.5-15.0[facility] on above:Order Comment: Specimen Type: BLOOD SPECIMENOrdering Facility: [facility] Address:[address] [place], [place] [address]Performed By: #### 94189- 8 ####[facility] LABIA [id number] [place] [address] [place] AMERICAHematocrit (Bld) [Volume fraction]26.6 %Low39.0-51.0[facility] on above:Order Comment: Specimen Type: BLOOD SPECIMENOrdering Facility: [facility] Address:[address] [place], [place] [address]Performed By: #### 91761- 8 ####[facility] LABIA [id number] [place] [address] [place] AMERICAHemoglobin (Bld) [Mass/Vol]8.1 g/dLLow13.0-17.0[facility] on above:Order Comment: Specimen Type: BLOOD SPECIMENOrdering Facility: [facility] Address:[address] [place], [place] [address]Performed By: #### 73882-1 ####[facility] LABIA [id number] [place] [address] [place] [facility] MEDICAL CENTERLymphocytes (Bld) [#/Vol]0.70 10*3/uLLow1.00-4.00[facility] on above:Order Comment: Specimen Type: BLOOD SPECIMENOrdering Facility: [facility] Address:[address] [place], [place] [address]Performed By: #### 54239-9 ####[facility] LABIA [id number] [place] [address] [place] AMERICALymphocytes/100 WBC (Bld)7.0 % NormalAvita Health System [facility] on above:Order Comment: Specimen Type: BLOOD SPECIMENOrdering Facility: [facility] Address:[address] [place], [place] [address]Performed By: #### 45180-8 ####[facility] LABIA [id number] [place] [address] [place] AMERICAMCH (RBC) [Entitic mass]30.1 sqVdxclm31.0-34.0[facility] on above:Order Comment: Specimen Type: BLOOD SPECIMENOrdering Facility: [facility] Address:[address] [place], [place] [address]Performed By: #### 64360-4 ####[facility] LABIA [id number] [place] [address] [place] MCHC (RBC) [Mass/Vol]30.5 g/gZLjcuru18.5-36.0[facility] on above:Order Comment: Specimen Type: BLOOD SPECIMENOrdering Facility: [facility] Address:[address] [place] [address] Performed By: #### 91840-0 ####[facility] LABCLIA [id number] [address] [place] [address] [place] MCV (RBC) [Entitic vol]98.9 mFEbmvqm62.0-100.0[facility] on above:Order Comment: Specimen Type: BLOOD SPECIMENOrdering Facility: [facility] Address:[address] [place] [address] Performed By: #### 73812-5 ####[facility] LABCLIA [id number] [address] [place] [address] [place] Metamyelocytes/100 WBC (Bld)9.0 %NormalAv[facility] Health [facility] on above:Order Comment: Specimen Type: BLOOD SPECIMENOrdering Facility: [facility] Address:[address] [place], [place] [address]Performed By: #### 74069-8 ####[facility] LABIA [id number] [address], [place] [address] [place] AMERICAMonocytes (Bld) [#/Vol]1.11 10*3/uLHigh<0.87[facility] on above:Order Comment: Specimen Type: BLOOD SPECIMENOrdering Facility: [facility] Address:[address] [place], [place] [address]Performed By: #### 11478- 8 ####[facility] LABCLIA [id number] [address], [facility]95 [place] AMERICAMonocytes/100 WBC (Bld)11.0 % NormalAvita Health System [facility] on above:Order Comment: Specimen Type: BLOOD SPECIMENOrdering Facility: [facility] Address:[address] [place], [place] [address]Performed By: #### 97805-9 ####[facility] LABCLIA [id number] [address], [facility]95 [place] AMERICAMYELO%1.0 %NormalAv[facility] Health System [facility] on above: Order Comment: Specimen Type: BLOOD SPECIMENOrdering Facility: [facility] Address:[address] [place], [place] [address]Performed By: #### 99236- 8 ####[facility] LABCLIA [id number] [address], [place] [address] [place] AMERICANeutrophils (Bld) [#/Vol]7.04 10*3/uLNormal1.45-7.50[facility] on above:Order Comment: Specimen Type: BLOOD SPECIMENOrdering Facility: [facility] Address:[address] [place], [place] [address]Performed By: #### 62840-3 ####[facility] LABIA [id number] [place] [address] [place] AMERICANeutrophils/100 WBC (Bld)70.0 % NormalMercy Health St. Vincent Medical CenterComment on above:Order Comment: Specimen Type: BLOOD SPECIMENOrdering Facility: [facility] Address:[address] [place], [place] [address]Performed By: #### 27093-2 ####[facility] LABIA [id number] [address], [place] [address] [place] AMERICANucleated RBC (Bld) [#/Vol]10*3/uLNormal<0.01[facility] on above:Order Comment: Specimen Type: BLOOD SPECIMENOrdering Facility: [facility] Address:[address] [place], [place] [address]Performed By: #### 98913-5 ####[facility] LABCLIA [id number] [address], [facility]95 [place] Nucleated RBC/100 WBC (Bld) [Ratio]0.0 /100 WBCNormalCTuscarawas Hospital Comment on above:Order Comment: Specimen Type: BLOOD SPECIMENOrdering Facility: [facility] Address:[address] [place] [address] Performed By: #### 71449-4 ####[facility] LABCLIA [id number] [place] [address] [place] Ovalocytes LM Ql (Bld)FewNormalCTrinity Health System [facility] Campus on above:Order Comment: Specimen Type: BLOOD SPECIMENOrdering Facility: [facility] Address:[address] [place], [place] [address]Performed By: #### 15651- 8 ####[facility] LABCLIA [id number] [place] [address] [place] AMERICAPlatelet mean volume (Bld) [Entitic vol]10.5 fLNormal9.0-12.7CTrinity [facility] on above: Order Comment: Specimen Type: BLOOD SPECIMENOrdering Facility: [facility] Address:[address] [place], [place] [address]Performed By: #### 15788- 8 ####[facility] LABCLIA [id number] [place] [address] [place] AMERICAPlatelets (Bld) [#/Vol]339 10*3/zXSlypgb910-844WggonfxdkAvita Health System [facility] on above:Order Comment: Specimen Type: BLOOD SPECIMENOrdering Facility: [facility] Address:[address] [place], [place] [address]Performed By: #### 24671-1 ####[facility] LABCLIA [id number] [place] [address] [place] AMERICAPlatelets Estimate (Bld) [#/Vol] AdequateNormalCTrinity Health System [facility] on above:Order Comment: Specimen Type: BLOOD SPECIMENOrdering Facility: [facility] Address:[address] [place], [place] [address]Performed By: #### 79289-3 ####[facility] LABCLIA [id number] [place] [address] [place] AMERICAPolychromasia LM Ql (Bld)SlightNormalCTrinity Health System [facility] on above:Order Comment: Specimen Type: BLOOD SPECIMENOrdering Facility: [facility] Address:[address] [place], [place] [address]Performed By: #### 22683-6 ####[facility] LABCLIA [id number] [address] [place] [address] [place] RBC (Bld) [#/Vol]2.69 10*6/uLLow4.20-6.00[facility] on above:Order Comment: Specimen Type: BLOOD SPECIMENOrdering Facility: [facility] Address:[address] [place], [place] [address]Performed By: #### 45485-4 ####[facility] LABCLIA [id number] [address], [address] OF AMERICARBC FRAGMENTSFew AbnormalNone SeenAvita Health System Bucyrus Hospital on above:Order Comment: Specimen Type: BLOOD SPECIMENOrdering Facility: [facility] Address:[address] [place], [place] [address]Performed By: #### 14521-3 ####[facility] LABCLIA [id number] [address], [facility]95 [place] AMERICARED CELL MORPHReviewed: see results of individual morphologiesBlanchard Valley [facility] on above:Order Comment: Specimen Type: BLOOD SPECIMENOrdering Facility: [facility] Address:[address] [place], [place] [address]Performed By: #### 60483-8 ####[facility] LABCLIA [id number] [address] [place] [address] [place] [facility] CENTERTarmount saint [facility] cells LM Ql (Bld)[facility] on above:Order Comment: Specimen Type: BLOOD SPECIMENOrdering Facility: [facility] Address:[address] [place], [place] [address]Performed By: #### 79315-0 ####[facility] LABCLIA [id number] [address] [place] [address] [place] AMERICAWBC (Bld) [#/Vol]10.06 10*3/uLNormal3.70-11.00[facility] on above:Order Comment: Specimen Type: BLOOD SPECIMENOrdering Facility: [facility] Address:[address] [place], [place] [address]Performed By: #### 06164-9 ####[facility] LABCLIA [id number] [place] [address] [place] AMERICAWBC Left Shift Ql (Bld)PresentNormalCTrinity Health System [facility] Campus on above:Order Comment: Specimen Type: BLOOD SPECIMENOrdering Facility: [facility] Address:[address] [place], [place] [address]Performed By: #### 94424-1 ####[facility] LABCLIA [id number] [place] [address] [place] AMERICACCF BACTERIA UR CULTon 96-79-2251JIH BACTERIA UR CULTORGANISM ID: 1AbnormalNOMS HealthcareCCF BACTERIA UR CULT10,000 -<50,000 CFU/ml Mixed microbiotaNOMS HealthcareCCF BACTERIA UR CULTNo further workupNOMS HealthcareInterpretation and review of laboratory resultsAbnormalHEBER VALLEY [facility]ENTER HealthcareOriginal Ordering Provider: [facility] HealthcareComprehensive metabolic 2000 panelon 55-99-1329Ynaedqf [Mass/Vol]2.1 g/dLLow3.9-4.9CTrinity [facility] on above:Order Comment: Specimen Type: BLOOD SPECIMENOrdering Facility: [facility] Address:[address] [place], [place] [address]Performed By: #### 16046- 8, 65052-2, 2777-1 ####[facility] LABIA [id number] [address] [place] AMERICAALP [Catalytic activity/Vol]363 U/AXzin45-398XekuaamdlAvita Health System [facility] on above:Order Comment: Specimen Type: BLOOD SPECIMENOrdering Facility: [facility] Address:[address] [place], [place] [address]Performed By: #### 22389- 8, 27651-2, 2776- ####[facility] LABCLIA [id number] [address] [place] AMERICAALT [Catalytic activity/Vol]33 U/JBiiuod63-42UzsyowmqwAvita Health System [facility] on above:Order Comment: Specimen Type: BLOOD SPECIMENOrdering Facility: [facility] Address:[address] [place], [place] [address]Performed By: #### 06154- 8, 18671-7, 2776-04 ####[facility] LABCLIA [id number] VIL[place] [id number] [place] AMERICAAnion gap [Moles/Vol] 13 mmol/LNormal8-15[facility] on above:Order Comment: Specimen Type: BLOOD SPECIMENOrdering Facility: [facility] Address:[address] [place], [place] [address]Performed By: #### 21326-4, , 2776-04 ####[facility] LABCLIA [id number] VIL[place] [id number] [place] AMERICAAST [Catalytic activity/Vol]30 U/RJaxnck53-73BklnkouoaAvita Health [facility] on above:Order Comment: Specimen Type: BLOOD SPECIMENOrdering Facility: [facility] Address:[address] [place], [place] [address]Performed By: #### 39318-5, , 2776-04 ####[facility] LABCLIA [id number] [address] [address] [place] AMERICABilirubin [Mass/Vol]0.3 mg/dL Normal0.2-1.3CTrinity Health [facility] on above:Order Comment: Specimen Type: BLOOD SPECIMENOrdering Facility: [facility] Address:[address] [place], [place] [address]Performed By: #### 93963-3, 56123-1, 2776- ####[facility] LABCLIA [id number] [place] [id number] [place] AMERICACalcium [Mass/Vol]8.2 mg/dLLow 8.5-10.2CTrinity [facility] on above:Order Comment: Specimen Type: BLOOD SPECIMENOrdering Facility: [facility] Address:[address] [place], [place] [address]Performed By: #### 27199-7, 15510-6, 2776-04 ####[facility] LABCLIA [id number] VILLE [id number] [place] AMERICAChloride [Moles/Vol]103 mmol/L Ntugqj58-126IdcrpuaulAvita Health System [facility] on above:Order Comment: Specimen Type: BLOOD SPECIMENOrdering Facility: [facility] Address:[address] [place], [place] [address]Performed By: #### 55833-5, 86202-8, 2776-04 ####[facility] LABIA [id number] VIL[place] [id number] [place] AMERICACO2 [Moles/Vol]21 mmol/CPil47-65 [facility] on above:Order Comment: Specimen Type: BLOOD SPECIMENOrdering Facility: [facility] Address:[address] [place], [place] [address]Performed By: #### 96230-4, 17820-5, 2776-04 ####[facility] LABIA [id number] VILLE [id number] [place] AMERICACreatinine [Mass/Vol]0.60 mg/dLLow0.73-1.22 [facility] on above:Order Comment: Specimen Type: BLOOD SPECIMENOrdering Facility: [facility] Address:[address] [place], [place] [address]Performed By: #### 07314-3, 23482-7, 2776- ####[facility] LABCLIA [id number] VILLE [id number] [place] AMERICAeGFRcr SerPlBld CKD-EPI 0586013 mL/min/1.73m??? Normal>=60[facility] on above:Order Comment: Specimen Type: BLOOD SPECIMENOrdering Facility: [facility] Address:[address] [place], [place] [address]Result Comment: Estimated Glomerular Filtration Rate (eGFR) is calculated using the 2020 CKD-EPI creatinine equation. This equation utilizes serum creatinine, sex, and age as parameters. The creatinine assay has traceable calibration to isotope dilution-mass spectrometry. Refer to KDIGO guidelines for clinical interpretation. In patients with unstable renal function, e.g. those with acute kidney injury, the eGFR may not accurately reflect actual GFR.Performed By: #### 61205-9, 73567-1, 2776- ####[facility] LABCLIA [id number] [address] [place] AMERICAGlucose [Mass/Vol]123 mg/kYSadh61-86XgwuvgbbuAvita Health System [facility] on above:Order Comment: Specimen Type: BLOOD SPECIMENOrdering Facility: [facility] Address:[address] [place], [place] [address]Result Comment: The [place] Diabetes Association (ADA) provides guidance for cutoff [...] Standards of Medical Care in Diabetes 2016, [place] [employer]. Diabetes Care. 2016.39(Suppl 1).Performed By: #### 61628- 8, 79941-0, 2776- ####[facility] LABIA [id number] [address] [place] AMERICAPotassium [Moles/Vol] 4.3 mmol/LNormal3.7-5.1CTrinity Health [facility] on above:Order Comment: Specimen Type: BLOOD SPECIMENOrdering Facility: [facility] Address:[address] [place], [place] [address]Performed By: #### 32228-1, 61621-9, 2776-04 ####[facility] LABCLIA [id number] [place] [address] [place] AMERICAProtein [Mass/Vol]5.1 g/dLLow 6.3-8.0[facility] on above:Order Comment: Specimen Type: BLOOD SPECIMENOrdering Facility: [facility] Address:[address] [place], [place] [address]Performed By: #### 62795-4, , 2776-04 ####[facility] LABCLIA [id number] [address] [place] AMERICASodium [Moles/Vol]137 mmol/L Uuwwyk663-141EfwxfwgjeAvita Health System [facility] on above:Order Comment: Specimen Type: BLOOD SPECIMENOrdering Facility: [facility] Address:[address] [place], [place] [address]Performed By: #### 12521-0, , 2776-04 ####[facility] LABCLIA [id number] [place] [id number] [place] AMERICAUrea nitrogen [Mass/Vol]25 mg/dL High9-24[facility] on above:Order Comment: Specimen Type: BLOOD SPECIMENOrdering Facility: [facility] Address:[address] [place], [place] [address]Performed By: #### 78693-2, , 2776-04 ####[facility] LABCLIA [id number] [place] [id number] [place] AMERICAMagnesium SerPl-mCncon 01-09-2025 Magnesium [Mass/Vol]1.9 mg/dLNormal1.7-2.3[facility] ClevelandComment on above:Order Comment: Specimen Type: BLOOD SPECIMENOrdering Facility: [facility] Address:[address] [place], [place] [address]Performed By: #### 88013-8, 58195-8, 2777-1 ####[facility] LABCLIA [id number] [place] [id number] [place] Phosphate SerPl-mCncon 35-34-6168Zlwwrpfir [Mass/Vol]4.4 mg/dLNormal2.7-4.8 [facility] on above:Order Comment: Specimen Type: BLOOD SPECIMENOrdering Facility: [facility] Address:[address] [place], [place] [address]Performed By: #### 26580-4, 49848-8, 2777- ####[facility] LABCLIA [id number] [address] [place] AMERICATHERAPY NTon [id number] NTNormalCleveland Formerly [facility] HospitalTHERAPY NTNormalCuniversity hospitals geauga medical centerand Formerly [facility]plin HospitalTHERAPY NTNormal [facility] Medical CenterTYPE + SCREENon 80-17-2106YJKWIbvgrqOgsryvonbTrinity Health [facility] on above:Order Comment: Specimen Type: BLOOD SPECIMENOrdering Facility: [facility] Address:[address] [place], [place] [address]Performed By: #### TSCR ####CC MAIN BLOOD BANKCLIA [id number] [place] [address] [place] AMERICARh Nom (Bld)Positive NormalAv[facility] on above:Order Comment: Specimen Type: BLOOD SPECIMENOrdering Facility: [facility] Address:[address] [place], [place] [address]Performed By: #### TSCR ####CC MAIN BLOOD BANKCLIA [id number] [place] [address] [place] AMERICATYPE AND SCREEN YAGXZMKRPM50/28/2025 23:59NormalCTrinity Health System [facility] on above:Order Comment: Specimen Type: BLOOD SPECIMENOrdering Facility: [facility] Address:[address] [place], [place] [address]Performed By: #### TSCR ####[facility] BLOOD BANKCLIA [id number] [place] [address] [place] [facility] CENTERTacrolimus Bld-mCncon 13-63-7369Dwrgtdnkro (Bld) [Mass/Vol]10.2 ng/mLNormal5.0-20.0[facility] [facility] on above:Order Comment: Specimen Type: BLOOD SPECIMENOrdering Facility: [facility] Address:[address] [place], [place] [address]Result Comment: Individualized target levels for a given [...] situation. Test performed by chemiluminescent immunoassay using Pairin Alinity i.Performed By: #### 28275-6 ####[facility] LABCLIA [id number] [place] [address] [place] AMERICABacteria Ur Culton 01-08-2025 Bacteria identified Cx Nom (U)ORGANISM ID: 1 10,000 -<50,000 CFU/ml Mixed microbiota No further workupNormalCTrinity Health System [facility] on above:Performed By: #### 630-4 ####[facility] LABCLIA [id number] [place] [id number] [place] AMERICACBC W Auto Differential panel (Bld)on 32-86-4658Jbimujxvmtuf Ql (Bld)PresentNormOhioHealth Nelsonville [facility] on above:Order Comment: Specimen Type: BLOOD SPECIMENOrdering Facility: [facility] Address:[address] [place], [place] [address]Performed By: #### 12440-5 ####[facility] LABCLIA [id number] [place] [address] [place] AMERICABasophils (Bld) [#/Vol]0.09 10*3/uLNormal<0.11CTuscarawas Hospital Comment on above:Order Comment: Specimen Type: BLOOD SPECIMENOrdering Facility: [facility] Address:[address] [place] [address] Performed By: #### 19355-0 ####[facility] LABCLIA [id number] [place] [address] [place] Basophils/100 WBC (Bld)0.9 %NormalAvita Health [facility] on above: Order Comment: Specimen Type: BLOOD SPECIMENOrdering Facility: [facility] Address:[address] [place], [place] [address]Performed By: #### 38899- 8 ####[facility] LABCLIA [id number] [place] [address] [place] AMERICADifferential cell count method Nom (Bld)ManualNormalCTrinity Health System East Campus on above:Order Comment: Specimen Type: BLOOD SPECIMENOrdering Facility: [facility] Address:[address] [place], [place] [address]Performed By: #### 61585-6 ####[facility] LABCLIA [id number] [place] [address] [place] AMERICAEosinophils (Bld) [#/Vol]0.00 10*3/uLNormal<0.46[facility] on above:Order Comment: Specimen Type: BLOOD SPECIMENOrdering Facility: [facility] Address:[address] [place], [place] [address]Performed By: #### 69535-9 ####[facility] LABCLIA [id number] [place] [address] [place] AMERICAEosinophils/100 WBC (Bld)0.0 % NormalAvita Health [facility] on above:Order Comment: Specimen Type: BLOOD SPECIMENOrdering Facility: [facility] Address:[address] [place], [place] [address]Performed By: #### 77175-9 ####[facility] LABIA [id number] [place] [address] [place] AMERICAErythrocyte distribution width (RBC) [Ratio]18.4 %High11.5-15.0 [facility] Centerment on above:Order Comment: Specimen Type: BLOOD SPECIMENOrdering Facility: [facility] Address:[address] [place], [place] [address]Performed By: #### 13781-2 ####[facility] [id number] [place] [address] [place] AMERICAHematocrit (Bld) [Volume fraction]23.9 %Low39.0-51.0[facility]ittman Medical Centerment on above:Order Comment: Specimen Type: BLOOD SPECIMENOrdering Facility: [facility] Address:[address] [place], [place] [address]Performed By: #### 97136-3 ####[facility] [id number] [place] [address] [place] Hemoglobin (Bld) [Mass/Vol]7.5 g/dLLow13.0-17.0[facility] on above:Order Comment: Specimen Type: BLOOD SPECIMENOrdering Facility: [facility] Address:[address] [place] [address] Performed By: #### 95384-9 ####[facility] LABIA [id number] [place] [address] [place] Lymphocytes (Bld) [#/Vol]0.44 10*3/uLLow1.00-4.00[facility] Comment on above:Order Comment: Specimen Type: BLOOD SPECIMENOrdering Facility: [facility] Address:[address] [place] [address] Performed By: #### 47602-3 ####[facility] LABIA [id number] [address], [address] STATES [facility] Lymphocytes/100 WBC (Bld)4.5 %NormalAvita Health [facility] on above: Order Comment: Specimen Type: BLOOD SPECIMENOrdering Facility: [facility] Address:[address] [place], [place] [address]Performed By: #### 76156- 8 ####[facility] LABIA [id number] [address], [address] (RBC) [Entitic mass]30.5 pg Jyjpgw23.0-34.0[facility] on above:Order Comment: Specimen Type: BLOOD SPECIMENOrdering Facility: [facility] Address:[address] [place], [place] [address]Performed By: #### 99037-3 ####[facility] LABIA [id number] [address] (RBC) [Mass/Vol]31.4 g/dL Mqyohj17.5-36.0[facility] on above:Order Comment: Specimen Type: BLOOD SPECIMENOrdering Facility: [facility] Address:[address] [place], [place] [address]Performed By: #### 05197-1 ####[facility] LABIA [id number] [address] (RBC) [Entitic vol]97.2 fL Mtuffw18.0-100.0[facility] on above:Order Comment: Specimen Type: BLOOD SPECIMENOrdering Facility: [facility] Address:[address] [place], [place] [address]Performed By: #### 82122-1 ####[facility] LABIA [id number] [address]ETMetamyelocytes/100 WBC (Bld)1.8 % NormalCleveland Clinic ClevelandComment on above:Order Comment: Specimen Type: BLOOD SPECIMENOrdering Facility: [facility] Address:[address] [place], [place] [address]Performed By: #### 72875-4 ####[facility] LABCLIA [id number] [address] [place] [address] [place] AMERICAMonocytes (Bld) [#/Vol]0.79 10*3/uLNormal<0.87[facility] on above:Order Comment: Specimen Type: BLOOD SPECIMENOrdering Facility: [facility] Address:[address] [place], [place] [address]Performed By: #### 18236-3 ####[facility] LABCLIA [id number] [place] [address] [place] Monocytes/100 WBC (Bld)8.1 %[facility] on above: Order Comment: Specimen Type: BLOOD SPECIMENOrdering Facility: [facility] Address:[address] [place], [place] [address]Performed By: #### 39742- 8 ####[facility] LABCLIA [id number] [place] [address] [place] AMERICAMYELO%4.5 %[facility] on above:Order Comment: Specimen Type: BLOOD SPECIMENOrdering Facility: [facility] Address:[address] [place], [place] [address]Performed By: #### 43394-6 ####[facility] LABCLIA [id number] [place] [address] [place] Neutrophils (Bld) [#/Vol]7.83 10*3/uLHigh1.45-7.50[facility] Comment on above:Order Comment: Specimen Type: BLOOD SPECIMENOrdering Facility: [facility] Address:[address] [place] [address] Performed By: #### 49642-1 ####[facility] LABCLIA [id number] [address], [place] [address] [place] Neutrophils/100 WBC (Bld)80.2 %NormalAvita Health [facility] on above: Order Comment: Specimen Type: BLOOD SPECIMENOrdering Facility: [facility] Address:[address] [place], [place] [address]Performed By: #### 52318- 8 ####[facility] LABCLIA [id number] [address], [place] [address] [place] AMERICANucleated RBC (Bld) [#/Vol] 10*3/uLNormal<0.01[facility] on above:Order Comment: Specimen Type: BLOOD SPECIMENOrdering Facility: [facility] Address:[address] [place], [place] [address]Performed By: #### 98806-6 ####[facility] LABIA [id number] [place] [address] [place] AMERICANucleated RBC/100 WBC (Bld) [Ratio]0.0 /100 WBCNormalCTrinity Health System [facility] Campus on above:Order Comment: Specimen Type: BLOOD SPECIMENOrdering Facility: [facility] Address:[address] [place], [place] [address]Performed By: #### 65336- 8 ####[facility] LABCLIA [id number] [place] [address] [place] AMERICAOvalocytes LM Ql (Bld)FewNormal [facility] on above:Order Comment: Specimen Type: BLOOD SPECIMENOrdering Facility: [facility] Address:[address] [place], [place] [address]Performed By: #### 19070-7 ####[facility] LABCLIA [id number] [place] [id number] [place] AMERICAPlatelet mean volume (Bld) [Entitic vol]10.5 fLNormal9.0-12.7CTrinity Health [facility] on above:Order Comment: Specimen Type: BLOOD SPECIMENOrdering Facility: [facility] Address:[address] [place], [place] [address]Performed By: #### 88002-3 ####[facility] LABCLIA [id number] [address] [place] [address] [place] AMERICAPlatelets (Bld) [#/Vol]297 10*3/rBBopmpm362-817LmyhavdobMercy Health St. [facility] Center Comment on above:Order Comment: Specimen Type: BLOOD SPECIMENOrdering Facility: [facility] Address:[address] [place] [address] Performed By: #### 04772-0 ####[facility] LABCLIA [id number] [address] [place] [address] [place] Platelets Estimate (Bld) [#/Vol]AdequateNormalCTrinity Health System [facility] on above:Order Comment: Specimen Type: BLOOD SPECIMENOrdering Facility: [facility] Address:[address] [place] [address] Performed By: #### 31289-9 ####[facility] LABCLIA [id number] [address] [place] [address] [place] Polychromasia LM Ql (Bld)SlightNormalCTuscarawas HospitalComment on above: Order Comment: Specimen Type: BLOOD SPECIMENOrdering Facility: [facility] Address:[address] [place], [place] [address]Performed By: #### 75225- 8 ####[facility] LABCLIA [id number] [address] [place] [address] [place] AMERICARBC (Bld) [#/Vol]2.46 10*6/uLLow 4.20-6.00[facility] Vincent Medical CenterComsheridan community hospital on above:Order Comment: Specimen Type: BLOOD SPECIMENOrdering Facility: [facility] Address:[address] [place], [place] [address]Performed By: #### 41473-9 ####[facility] LABCLIA [id number] [address] [place] [address] [place] AMERICARED CELL MORPHReviewed: see results of individual morphologiesNoGrant Hospital on above:Order Comment: Specimen Type: BLOOD SPECIMENOrdering Facility: [facility] Address:[address] [place], [place] [address]Performed By: #### 19489-3 ####[facility] LABCLIA [id number] [address] [place] [address] [place] AMERICATarget cells LM Ql (Bld)FewNormal [facility] on above:Order Comment: Specimen Type: BLOOD SPECIMENOrdering Facility: [facility] Address:[address] [place], [place] [address]Performed By: #### 83657-2 ####[facility] LABIA [id number] [address], [place] [address] [place] AMERICAWBC (Bld) [#/Vol]9.76 10*3/uLNormal3.70-11.00[facility] Comment on above:Order Comment: Specimen Type: BLOOD SPECIMENOrdering Facility: [facility] Address:[address] [place] [address] Performed By: #### 88367-1 ####[facility] LABCLIA [id number] [address], [facility]95 [place] WBC Left Shift Ql (Bld)PresentNoGrant Hospital on above: Order Comment: Specimen Type: BLOOD SPECIMENOrdering Facility: [facility] Address:[address] [place], [place] [address]Performed By: #### 33929- 8 ####[facility] LABCLIA [id number] [address], [facility]95 [place] AMERICACONSULT PROGon 71-06-7721JBGPXOI PROGNormalMercy Health St. Vincent Medical CenterCRP SerPl-mCncon 04-14-5343NTM [Mass/Vol] 23.9 mg/dLHigh<0.9CTrinity [facility] on above:Order Comment: Specimen Type: BLOOD SPECIMENOrdering Facility: [facility] Address:[address] [place], [place] [address]Performed By: #### 43922-7, 1987-08, , 2776-04 ####[facility] LABCLIA [id number] [place] [id number] [place] AMERICAComprehensive metabolic 2000 panelon 91-16-7032Ffgknds [Mass/Vol]2.1 g/dLLow3.9-4.9ClevelFostoria City Hospital on above:Order Comment: Specimen Type: BLOOD SPECIMENOrdering Facility: [facility] Address:[address] [place], [place] [address]Performed By: #### 46424-8, 1987-08, , 2776-04 ####[facility] LABCLIA [id number] [place] [id number] [place] AMERICAALP [Catalytic activity/Vol]409 U/GKyrw15-378ObtlfpgwrAvita Health [facility] on above:Order Comment: Specimen Type: BLOOD SPECIMENOrdering Facility: [facility] Address:[address] [place], [place] [address]Performed By: #### 29094-2, 1987-08, , 2776-04 ####[facility] LABCLIA [id number] [place] [id number] [place] AMERICAALT [Catalytic activity/Vol]37 U/BMrqsiv89-55RpdlgnbahAvita Health [facility] on above:Order Comment: Specimen Type: BLOOD SPECIMENOrdering Facility: [facility] Address:[address] [place], [place] [address]Performed By: #### 74686-0, 1987-08, , 2776-04 ####[facility] LABCLIA [id number] [place] [id number] [place] AMERICAAnion gap [Moles/Vol]11 mmol/L Normal8-15[facility] on above:Order Comment: Specimen Type: BLOOD SPECIMENOrdering Facility: [facility] Address:[address] [place], [place] [address]Performed By: #### 83799-0, 1987-08, , 2776-04 ####[facility] LABCLIA [id number] [place] [id number] [place] AMERICAAST [Catalytic activity/Vol]28 U/HBwsnan28-96MiilpixmeAvita Health [facility] on above:Order Comment: Specimen Type: BLOOD SPECIMENOrdering Facility: [facility] Address:[address] [place], [place] [address]Performed By: #### 23873-0, 1987-08, , 2776-04 ####[facility] LABCLIA [id number] [place] [id number] [place] AMERICABilirubin [Mass/Vol]0.3 mg/dL Normal0.2-1.3CTrinity [facility] on above:Order Comment: Specimen Type: BLOOD SPECIMENOrdering Facility: [facility] Address:[address] [place], [place] [address]Performed By: #### 03912-2, 1987-08, , 2776-04 ####[facility] LABCLIA [id number] [address] [address] [place] AMERICACalcium [Mass/Vol]8.1 mg/dLLow 8.5-10.2CTrinity [facility] on above:Order Comment: Specimen Type: BLOOD SPECIMENOrdering Facility: [facility] Address:[address] [place], [place] [address]Performed By: #### 02947-3, 1987-08, , 2776-04 ####[facility] LABCLIA [id number] [address] [address] [place] AMERICAChloride [Moles/Vol]102 mmol/L Hcgdma15-602TzhbkprlbAvita Health [facility] on above:Order Comment: Specimen Type: BLOOD SPECIMENOrdering Facility: [facility] Address:[address] [place] [address]Elgwtomdr By: #### 89913-6, 1987-08, , 2776-04 ####[facility] LABIA [id number] [place] [id number] [place] AMERICACO2 [Moles/Vol]21 mmol/DMga67-94 [facility] on above:Order Comment: Specimen Type: BLOOD SPECIMENOrdering Facility: [facility] Address:[address] [place] [address]Rriwurmts By: #### 82996-1, 1987-08, , 2776-04 ####[facility] LABIA [id number] [place] [id number] [place] AMERICACreatinine [Mass/Vol]0.59 mg/dL Low0.73-1.22[facility] on above:Order Comment: Specimen Type: BLOOD SPECIMENOrdering Facility: [facility] Address:[address] [place], [place] [address]Performed By: #### 10674-1, 1987-08, , 2776-04 ####[facility] LABIA [id number] [place] [id number] [place] AMERICAeGFRcr SerPlBld CKD-EPI 8920847 mL/min/1.73m???Normal>=60[facility] on above:Order Comment: Specimen Type: BLOOD SPECIMENOrdering Facility: [facility] Address:[address] [place] [address]Shvyxm Comment: Estimated Glomerular Filtration Rate (eGFR) is [...] not accurately reflect actual GFR.Performed By: #### 35365-6, 1987-08, , 2776-04 ####[facility] LABCLIA [id number] [address] [address] [place] AMERICAGlucose [Mass/Vol]127 mg/qNVwfd14-31QtpovfmyyAvita Health [facility] on above:Order Comment: Specimen Type: BLOOD SPECIMENOrdering Facility: [facility] Address:[address] [place] [id number] Comment: The [place] [employer] (ADA) provides guidance for cutoff [...] Standards of Medical Care in Diabetes 2016, [place] [employer]. Diabetes Care. 2016.39(Suppl 1). Performed By: #### 95648-4, 1987-08, , 2776-04 ####[facility] LABCLIA [id number] [address] [address] [place] AMERICAPotassium [Moles/Vol]3.9 mmol/LNormal3.7-5.1CTrinity [facility] on above:Order Comment: Specimen Type: BLOOD SPECIMENOrdering Facility: [facility] Address:[address] [place], [place] [address]Uooymgcez By: #### 62072-7, 1987-08, , 2776-04 ####[facility] LABCLIA [id number] [address] [address] [place] AMERICAProtein [Mass/Vol]5.0 g/dLLow6.3-8.0[facility] on above:Order Comment: Specimen Type: BLOOD SPECIMENOrdering Facility: [facility] Address:[address] [place] [address]Mjbjesixl By: #### 31824-3, 1987-08, , 2776-04 ####[facility] LABCLIA [id number] [address] [place] [address] [place] AMERICASodium [Moles/Vol]134 mmol/HNpc545-787RizeeggrlAvita Health [facility] on above:Order Comment: Specimen Type: BLOOD SPECIMENOrdering Facility: [facility] Address:[address] [place], [place] [address]Performed By: #### 80861-5, 1987-08, , 2776-04 ####[facility] LABCLIA [id number] [place] [id number] [place] AMERICAUrea nitrogen [Mass/Vol]25 mg/dLHigh-[facility] on above:Order Comment: Specimen Type: BLOOD SPECIMENOrdering Facility: [facility] Address:[address] [place], [place] [address]Performed By: #### 83558-1, 1987-08, , 2776-04 ####[facility] LABCLIA [id number] [address] [address] [place] OF AMERICAECG COMPLETEon 91-43-6160IMO COMPLETENormalCTuscarawas HospitalMagnesium SerPl-mCncon 17-30-1186Keamjiysg [Mass/Vol]1.6 mg/dL Low1.7-2.3CTrinity Health [facility] on above:Order Comment: Specimen Type: BLOOD SPECIMENOrdering Facility: [facility] Address:[address] [place] [address]Lxodfhiih By: #### 99709-0, 1987-08, , 2776-04 ####[facility] LABCLIA [id number] [address] [address] [place] OF [facility] HOSPITALUTRITIONon 31-03-1427TBRHRJSKM NormalMercy Health St. Vincent Medical CenterPhosphate SerPl-[facility] 89-83-1952Jdyzndhbp [Mass/Vol]4.0 mg/dLNormal2.7-4.8CTrinity [facility] on above:Order Comment: Specimen Type: BLOOD SPECIMENOrdering Facility: [facility] Address:[address] [place], [place] [address]Performed By: #### 00484- 8, 1987-, 92763-7, 277-1 ####[facility] LABCLIA [id number] [place] [id number] [place] OF AMERICATHERAPY NTon 23-61-8170DGCODDB NTNormalCTuscarawas HospitalTacrolimus Bld-ncon 89-05-5865Affqukaurt (Bld) [Mass/Vol]7.0 ng/mLNormal5.0-20.0[facility] on above:Order Comment: Specimen Type: BLOOD SPECIMENOrdering Facility: [facility] Address:[address] [place], [place] [address]Result Comment: Individualized target levels for a given [...] immunoassay using Lak[employer] Alinity i.Performed By: #### 97106-3 ####[facility] LABCLIA [id number] [place] [id number] [place] AMERICACASE MANAGEMon 85-52-3288HRSD MANAGEMNormalMercy Health St. Vincent Medical CenterCB W Auto Differential panel (Bld)on 28-80-8226Cxxjeydowcrd Ql (Bld)PresentNormalCTrinity Health [facility] on above:Order Comment: Specimen Type: BLOOD SPECIMENOrdering Facility: [facility] Address:[address] [place], [place] [address]Performed By: #### 47090-0 ####[facility] LABCLIA [id number] [place] [address] [place] AMERICABasophils (Bld) [#/Vol]0.00 10*3/uLNormal<0.11CTrinity [facility] on above:Order Comment: Specimen Type: BLOOD SPECIMENOrdering Facility: [facility] Address:[address] [place], [place] [address]Performed By: #### 83835- 8 ####[facility] LABCLIA [id number] [place] [address] [place] AMERICABasophils/100 WBC (Bld)0.0 % NormalAvita Health [facility] on above:Order Comment: Specimen Type: BLOOD SPECIMENOrdering Facility: [facility] Address:[address] [place], [place] [address]Performed By: #### 29297-3 ####[facility] LABCLIA [id number] [place] [address] [place] AMERICADifferential cell count method Nom (Bld)ManualNormalCTrinity Health System [facility] on above:Order Comment: Specimen Type: BLOOD SPECIMENOrdering Facility: [facility] Address:[address] [place], [place] [address]Performed By: #### 36785-4 ####[facility] LABCLIA [id number] [place] [address] [place] AMERICAEosinophils (Bld) [#/Vol]0.00 10*3/uLNormal<0.46[facility] on above:Order Comment: Specimen Type: BLOOD SPECIMENOrdering Facility: [facility] Address:[address] [place], [place] [address]Performed By: #### [id number] ####[facility] LABCLIA [id number] [place] [address] [place] Eosinophils/100 WBC (Bld)0.0 %NormalAv[facility] on above: Order Comment: Specimen Type: BLOOD SPECIMENOrdering Facility: [facility] Address:[address] [place], [place] [address]Performed By: #### [id number]- [id number] ####[facility] LABIA [id number] [place] [address] [place] AMERICAErythrocyte distribution width (RBC) [Ratio]18.1 %High11.5-15.0[facility] on above:Order Comment: Specimen Type: BLOOD SPECIMENOrdering Facility: [facility] Address:[address] [place], [place] [address]Performed By: #### [id number]- [id number] ####[facility] LABIA [id number] [address], [place] [address] [place] OF AMERICAHematocrit (Bld) [Volume fraction]24.8 %Low39.0-51.0[facility] on above:Order Comment: Specimen Type: BLOOD SPECIMENOrdering Facility: [facility] Address:[address] [place], [place] [address]Performed By: #### [id number]- 8 ####[facility] LABIA [id number] [place] [address] [place] AMERICAHemoglobin (Bld) [Mass/Vol]8.0 g/dLLow13.0-17.0[facility] on above:Order Comment: Specimen Type: BLOOD SPECIMENOrdering Facility: [facility] Address:[address] [place], [place] [address]Performed By: #### [id number] ####[facility] LABIA [id number] [place] [address] [place] AMERICALymphocytes (Bld) [#/Vol]0.73 10*3/uLLow1.00-4.00[facility] on above:Order Comment: Specimen Type: BLOOD SPECIMENOrdering Facility: [facility] Address:[address] [place], [place] [address]Performed By: #### 10071-7 ####[facility] LABIA [id number] [place] [address] [place] OF AMERICALymphocytes/100 WBC (Bld)7.1 % NormalAv[facility] on above:Order Comment: Specimen Type: BLOOD SPECIMENOrdering Facility: [facility] Address:[address] [place], [place] [address]Performed By: #### 37524-3 ####[facility] LABIA [id number] [place] [address] [place] AMERICAMCH (RBC) [Entitic mass]31.0 anCyfprt71.0-34.0[facility] on above:Order Comment: Specimen Type: BLOOD SPECIMENOrdering Facility: [facility] Address:[address] [place], [place] [address]Performed By: #### 04222-2 ####[facility] [id number] [place] [address] [place] MCHC (RBC) [Mass/Vol]32.3 g/rVLrnips58.5-36.0[facility] on above:Order Comment: Specimen Type: BLOOD SPECIMENOrdering Facility: [facility] Address:[address] [place] [address] Performed By: #### 46914-1 ####[facility] LABIA [id number] [place] [address] [place] MCV (RBC) [Entitic vol]96.1 kKDelbnb82.0-100.0[facility] on above:Order Comment: Specimen Type: BLOOD SPECIMENOrdering Facility: [facility] Address:[address] [place] [address] Performed By: #### 62679-7 ####[facility] LABIA [id number] [address] [place] [address] [place] Metamyelocytes/100 WBC (Bld)0.9 %NormalAvita Health [facility] on above:Order Comment: Specimen Type: BLOOD SPECIMENOrdering Facility: [facility] Address:[address] [place], [place] [address]Performed By: #### 40995-5 ####[facility] LABCLIA [id number] [address], [place] [address] [place] AMERICAMonocytes (Bld) [#/Vol]0.99 10*3/uLHigh<0.87[facility] on above:Order Comment: Specimen Type: BLOOD SPECIMENOrdering Facility: [facility] Address:[address] [place], [place] [address]Performed By: #### 79078- 8 ####[facility] LABCLIA [id number] [address], [place] [address] [place] AMERICAMonocytes/100 WBC (Bld)9.7 % NormalAv[facility] on above:Order Comment: Specimen Type: BLOOD SPECIMENOrdering Facility: [facility] Address:[address] [place], [place] [address]Performed By: #### 16952-6 ####[facility] LABCLIA [id number] [address], [facility]95 [place] AMERICAMYELO%0.9 %NormalAv[facility] Health [facility] on above: Order Comment: Specimen Type: BLOOD SPECIMENOrdering Facility: [facility] Address:[address] [place], [place] [address]Performed By: #### 76723- 8 ####[facility] LABCLIA [id number] [address], [facility]95 [place] AMERICANeutrophils (Bld) [#/Vol]8.32 10*3/uLHigh1.45-7.50[facility] on above:Order Comment: Specimen Type: BLOOD SPECIMENOrdering Facility: [facility] Address:[address] [place], [place] [address]Performed By: #### 97777-8 ####[facility] LABCLIA [id number] [place] [address] [place] AMERICANeutrophils/100 WBC (Bld)81.4 % NormalMercy Health St. Vincent Medical CenterComment on above:Order Comment: Specimen Type: BLOOD SPECIMENOrdering Facility: [facility] Address:[address] [place], [place] [address]Performed By: #### 94324-4 ####[facility] LABCLIA [id number] [address], [place] [address] [place] AMERICANucleated RBC (Bld) [#/Vol]10*3/uLNormal<0.01[facility] on above:Order Comment: Specimen Type: BLOOD SPECIMENOrdering Facility: [facility] Address:[address] [place], [place] [address]Performed By: #### 05936-0 ####[facility] LABIA [id number] [place] [address] [place] Nucleated RBC/100 WBC (Bld) [Ratio]0.0 /100 WBCNormalCTuscarawas Hospital Comment on above:Order Comment: Specimen Type: BLOOD SPECIMENOrdering Facility: [facility] Address:[address] [place] [address] Performed By: #### 18893-3 ####[facility] LABCLIA [id number] [address] [place] [address] [place] Ovalocytes LM Ql (Bld)FewNormalCTuscarawas HospitalComsheridan community hospital on above:Order Comment: Specimen Type: BLOOD SPECIMENOrdering Facility: [facility] Address:[address] [place], [place] [address]Performed By: #### 01775- 8 ####[facility] LABCLIA [id number] [place] [address] [place] AMERICAPlatelet mean volume (Bld) [Entitic vol]10.6 fLNormal9.0-12.7CTrinity [facility] on above: Order Comment: Specimen Type: BLOOD SPECIMENOrdering Facility: [facility] Address:[address] [place], [place] [address]Performed By: #### 20806- 8 ####[facility] LABCLIA [id number] [address], [place] [address] [place] AMERICAPlatelets (Bld) [#/Vol]307 10*3/gQAedrqh702-285DfzggvhzpAvita Health System [facility] on above:Order Comment: Specimen Type: BLOOD SPECIMENOrdering Facility: [facility] Address:[address] [place], [place] [address]Performed By: #### 25988-4 ####[facility] LABCLIA [id number] [place] [address] [place] AMERICAPlatelets Estimate (Bld) [#/Vol] AdequateNormalCTrinity Health System East Campus on above:Order Comment: Specimen Type: BLOOD SPECIMENOrdering Facility: [facility] Address:[address] [place], [place] [address]Performed By: #### 34749-6 ####[facility] LABCLIA [id number] [place] [address] [place] AMERICAPolychromasia LM Ql (Bld)SlightNormalCTrinity Health System East Campus on above:Order Comment: Specimen Type: BLOOD SPECIMENOrdering Facility: [facility] Address:[address] [place], [place] [address]Performed By: #### 65344-1 ####[facility] LABCLIA [id number] [place] [address] [place] RBC (Bld) [#/Vol]2.58 10*6/uLLow4.20-6.00[facility] on above:Order Comment: Specimen Type: BLOOD SPECIMENOrdering Facility: [facility] Address:[address] [place], [place] [address]Performed By: #### 43126-8 ####[facility] LABCLIA [id number] [address], [place] [address] [place] OF AMERICARED CELL MORPH Reviewed: see results of individual morphologiesNoSelect Medical Specialty [facility] Comment on above:Order Comment: Specimen Type: BLOOD SPECIMENOrdering Facility: [facility] Address:[address] [place] [address] Performed By: #### 17061-8 ####[facility] LABCLIA [id number] [address], [facility]95 [place] Target cells LM Ql (Bld)[facility] on above: Order Comment: Specimen Type: BLOOD SPECIMENOrdering Facility: [facility] Address:[address] [place], [place] [address]Performed By: #### 40540- 8 ####[facility] LABCLIA [id number] [address], [place] [address] [place] OF AMERICAWBC (Bld) [#/Vol]10.22 10*3/uL Normal3.70-11.00[facility] on above:Order Comment: Specimen Type: BLOOD SPECIMENOrdering Facility: [facility] Address:[address] [place], [place] [address]Performed By: #### 54217-5 ####[facility] LABCLIA [id number] [place] [address] [place] AMERICAWBC Left Shift Ql (Bld)Present NormalAvita Health [facility] on above:Order Comment: Specimen Type: BLOOD SPECIMENOrdering Facility: [facility] Address:[address] [place], [place] [address]Performed By: #### 62815-5 ####[facility] LABCLIA [id number] [address], [facility]95 [place] AMERICACONSULT PROGon 09-20-1644TPYMBLA PROGNormalSumma Health Wadsworth - Rittman Medical Centerprehensive metabolic 2000 panelon 53-25-9960Iarpsmn [Mass/Vol]2.0 g/dLLow3.9-4.9CTrinity Health [facility] on above:Order Comment: Specimen Type: BLOOD SPECIMENOrdering Facility: [facility] Address:[address] [place], [place] [address]Performed By: #### 01551-3, 03695-6, 2776-04 ####[facility] LABCLIA [id number] [address] [address] [place] AMERICAALP [Catalytic activity/Vol]476 U/TNpyp09-585AenzgvfswAvita Health System [facility] on above:Order Comment: Specimen Type: BLOOD SPECIMENOrdering Facility: [facility] Address:[address] [place], [place] [address]Performed By: #### 66159-1, , 2776-04 ####[facility] LABCLIA [id number] [place]IL[place] [address] [place] AMERICAALT [Catalytic activity/Vol]41 U/FEaknlq66-35TovkbnvhdAvita Health System [facility] on above:Order Comment: Specimen Type: BLOOD SPECIMENOrdering Facility: [facility] Address:[address] [place], [place] [address]Performed By: #### 24712-7, , 2776-04 ####[facility] LABCLIA [id number] [address] [place] AMERICAAnion gap [Moles/Vol]12 mmol/L Normal8-15[facility] on above:Order Comment: Specimen Type: BLOOD SPECIMENOrdering Facility: [facility] Address:[address] [place], [place] [address]Performed By: #### 97145-0, , 2776- ####[facility] LABCLIA [id number] [address] [address] [place] AMERICAAST [Catalytic activity/Vol]34 U/YOkruld98-21JirkoazwqAv[facility] on above:Order Comment: Specimen Type: BLOOD SPECIMENOrdering Facility: [facility] Address:[address] [place], [place] [address]Performed By: #### 65693-7, , 2776-04 ####[facility] LABCLIA [id number] [place] [address] [place] AMERICABilirubin [Mass/Vol]0.3 mg/dL Normal0.2-1.3CTrinity Health [facility] on above:Order Comment: Specimen Type: BLOOD SPECIMENOrdering Facility: [facility] Address:[address] [place], [place] [address]Performed By: #### 34072-7, , 2776-04 ####[facility] LABCLIA [id number], [place] [address] [place] AMERICACalcium [Mass/Vol]8.0 mg/dLLow 8.5-10.2CTrinity Health [facility] on above:Order Comment: Specimen Type: BLOOD SPECIMENOrdering Facility: [facility] Address:[address] [place], [place] [address]Performed By: #### 00354-2, , 2776-04 ####[facility] LABCLIA [id number] [place] [address] [place] AMERICAChloride [Moles/Vol]102 mmol/L Vmliik53-492XqwzfcekkAvita Health System [facility] on above:Order Comment: Specimen Type: BLOOD SPECIMENOrdering Facility: [facility] Address:[address] [place], [place] [address]Performed By: #### 95511-5, , 2776-04 ####[facility] LABCLIA [id number] [place] [id number] [place] AMERICACO2 [Moles/Vol]20 mmol/OCpb84-92 [facility] on above:Order Comment: Specimen Type: BLOOD SPECIMENOrdering Facility: [facility] Address:[address] [place] [address]Myjrxvyxm By: #### 99046-4, , 2776-04 ####[facility] LABIA [id number] [address] [place] AMERICACreatinine [Mass/Vol]0.56 mg/dLLow0.73-1.22 [facility] on above:Order Comment: Specimen Type: BLOOD SPECIMENOrdering Facility: [facility] Address:[address] [place] [address]Mxhymfrqz By: #### 41653-4, , 2776-04 ####[facility] SYSTEMIA [id number] [address] [place] OF AMERICAeGFRcr SerPlBld CKD-EPI 4223441 mL/min/1.73m??? Normal>=60[facility] on above:Order Comment: Specimen Type: BLOOD SPECIMENOrdering Facility: [facility] Address:[address] [place] [address]Birapj Comment: Estimated Glomerular Filtration Rate (eGFR) is calculated using the 2020 CKD-EPI creatinine equation. This equation utilizes serum creatinine, sex, and age as parameters. The creatinine assay has traceable calibration to isotope dilution-mass spectrometry. Refer to KDIGO guidelines for clinical interpretation. In patients with unstable renal function, e.g. those with acute kidney injury, the eGFR may not accurately reflect actual GFR.Performed By: #### 77342-1, , 2776-04 ####[facility] LABIA [id number] [address] [place] AMERICAGlucose [Mass/Vol]129 mg/gSKwmk70-60FejmpqwrxAvita Health [facility] on above:Order Comment: Specimen Type: BLOOD SPECIMENOrdering Facility: [facility] Address:[address] [place] [address]Hlqtqn Comment: The [place] Diabetes Association (ADA) provides guidance for cutoff [...] Standards of Medical Care in Diabetes 2016, [place] [employer]. Diabetes Care. 2016.39(Suppl 1).Performed By: #### 61134- 8, 46316-3, 2776-04 ####[facility] LABGR[facility] [id number] [address] [place] AMERICAPotassium [Moles/Vol] 3.9 mmol/LNormal3.7-5.1CTrinity Health [facility] on above:Order Comment: Specimen Type: BLOOD SPECIMENOrdering Facility: [facility] Address:[address] [place], [place] [address]Performed By: #### 80003-6, , 2776-04 ####[facility] LABIA [id number] VIL[place] [address] [place] AMERICAProtein [Mass/Vol]5.0 g/dLLow 6.3-8.0[facility] on above:Order Comment: Specimen Type: BLOOD SPECIMENOrdering Facility: [facility] Address:[address] [place], [place] [address]Performed By: #### 67269-8, 53484-9, 2776-04 ####[facility] [id number] VILLE [id number] [place] AMERICASodium [Moles/Vol]134 mmol/LLow 136-144[facility] on above:Order Comment: Specimen Type: BLOOD SPECIMENOrdering Facility: [facility] Address:[address] [place], [place] [address]Performed By: #### 88500-0, 82602-3, 2777-1 ####[facility] LABIA [id number] [address] [place] AMERICAUrea nitrogen [Mass/Vol]24 mg/dL Normal9-24[facility] on above:Order Comment: Specimen Type: BLOOD SPECIMENOrdering Facility: [facility] Address:[address] [place], [place] [address]Performed By: #### 44844-5, 06854-4, 2777- ####[facility] LABIA [id number] [place]IL[place] [address] [place] OF AMERICAMagnesium SerPl-mCncon 01-07-2025 Magnesium [Mass/Vol]1.8 mg/dLNormal1.7-2.3ClevelFostoria City Hospital on above:Order Comment: Specimen Type: BLOOD SPECIMENOrdering Facility: [facility] Address:[address] [place], [place] [address]Performed By: #### 17785-5, 90063-2, 2777-1 ####[facility] LABIA [id number] [address] [place] Phosphate SerPl-mCncon 98-45-1426Kazuutuao [Mass/Vol]3.5 mg/dLNormal2.7-4.8 [facility] on above:Order Comment: Specimen Type: BLOOD SPECIMENOrdering Facility: [facility] Address:[address] [place], [place] [address]Performed By: #### 19011-2, 70304-7, 2777-1 ####[facility] LABIA [id number] VILLE [id number] [place] AMERICATHERAPY NTon 08-50-9276FNDZSWC NTNormalClevelCarteret Health CareTacrolimus Bld-mCncon 34-22-4217Tlxfotiafr (Bld) [Mass/Vol]5.5 ng/mLNormal5.0-20.0[facility] on above:Order Comment: Specimen Type: BLOOD SPECIMENOrdering Facility: [facility] Address:[address] [place] [id number] Comment: Individualized target levels for a given [...] situation. Test performed by chemiluminescent immunoassay using Xactly CorpniRetrophin i.Performed By: #### 91385-6 ####[facility] LABCLIA [id number] [address] [place] [address] [place] AMERICAUS CHEST EFFUSION SURVEYon 99-22-9398ZL CHEST EFFUSION SURVEY NormalMercy Health St. Vincent Medical CenterBacteria Bld Culton 69-03-7404Hvvbtzdv identified Cx Nom (Bld)CULTURE, BLOOD: No growth 5 daysNormOhioHealth Nelsonville Health Center on above:Performed By: #### 600-7 ####[facility] LABCLIA [id number] [address] [address] [place] AMERICABacteria identified Cx Nom (Bld)CULTURE, BLOOD: No growth 5 daysNormalCTrinity Health System [facility] Campus on above:Performed By: #### 600-7 ####[facility] LABCLIA [id number] [address] [place] [address] [place] AMERICACBC W Auto Differential panel (Bld)on 31-23-5866Hujndwmpeufv Ql (Bld)PresentNormOhioHealth Nelsonville Health Center on above:Order Comment: Specimen Type: BLOOD SPECIMENOrdering Facility: [facility] Address:[address] [place] [address]Performed By: #### 44281-3 ####[facility] LABCLIA [id number] [address] [address] [place] AMERICABasophils (Bld) [#/Vol]0.00 10*3/uLNormal<0.11CTuscarawas Hospital Comment on above:Order Comment: Specimen Type: BLOOD SPECIMENOrdering Facility: [facility] Address:[address] [place] [address] Performed By: #### 53097-5 ####[facility] LABCLIA [id number] [address], [facility]95 [place] Basophils/100 WBC (Bld)0.0 %[facility] on above: Order Comment: Specimen Type: BLOOD SPECIMENOrdering Facility: [facility] Address:[address] [place], [place] [address]Performed By: #### 23115- 8 ####[facility] LABCLIA [id number] [place] [address] [place] AMERICADifferential cell count method Nom (Bld)ManualNormalCTrinity Health System East Campus on above:Order Comment: Specimen Type: BLOOD SPECIMENOrdering Facility: [facility] Address:[address] [place], [place] [address]Performed By: #### 10153-1 ####[facility] LABCLIA [id number] [place] [address] [place] AMERICAEosinophils (Bld) [#/Vol]0.00 10*3/uLNormal<0.46[facility] on above:Order Comment: Specimen Type: BLOOD SPECIMENOrdering Facility: [facility] Address:[address] [place], [place] [address]Performed By: #### 17930-5 ####[facility] LABCLIA [id number] [place] [address] [place] AMERICAEosinophils/100 WBC (Bld)0.0 % NormalAvita Health System [facility] on above:Order Comment: Specimen Type: BLOOD SPECIMENOrdering Facility: [facility] Address:[address] [place], [place] [address]Performed By: #### 09903-1 ####[facility] LABIA [id number] [place] [address] [place] [facility] MEDICAL CENTERErythrocyte distribution width (RBC) [Ratio]17.8 %High11.5-15.0 [facility] on above:Order Comment: Specimen Type: BLOOD SPECIMENOrdering Facility: [facility] Address:[address] [place], [place] [address]Performed By: #### 27767-4 ####[facility] LABIA [id number] [address] STATES OF AMERICAHematocrit (Bld) [Volume fraction]27.7 %Low39.0-51.0[facility] Vincent Medical CenterComsheridan community hospital on above:Order Comment: Specimen Type: BLOOD SPECIMENOrdering Facility: [facility] Address:[address] [place], [place] [address]Performed By: #### 83684-9 ####[facility] SYSTEMIA [id number] [place] [address] [place] Hemoglobin (Bld) [Mass/Vol]9.0 g/dLLow13.0-17.0[facility] on above:Order Comment: Specimen Type: BLOOD SPECIMENOrdering Facility: [facility] Address:[address] [place] [address] Performed By: #### 91552-0 ####[facility] LABIA [id number] [place] [address] [place] Lymphocytes (Bld) [#/Vol]0.28 10*3/uLLow1.00-4.00[facility] Comment on above:Order Comment: Specimen Type: BLOOD SPECIMENOrdering Facility: [facility] Address:[address] [place] [address] Performed By: #### 01337-2 ####[facility] LABIA [id number] [address] STATES OF [facility] Lymphocytes/100 WBC (Bld)2.6 %NormalAv[facility] on above: Order Comment: Specimen Type: BLOOD SPECIMENOrdering Facility: [facility] Address:[address] [place], [place] [address]Performed By: #### 55924- 8 ####[facility] LABCLIA [id number] [address] (RBC) [Entitic mass]31.1 pg Ynnswm28.0-34.0[facility] on above:Order Comment: Specimen Type: BLOOD SPECIMENOrdering Facility: [facility] Address:[address] [place], [place] [address]Performed By: #### 24436-3 ####[facility] LABCLIA [id number] [address] OF SYCAMORE MEDICAL CENTERMCHC (RBC) [Mass/Vol]32.5 g/dL Lfqldp43.5-36.0[facility] on above:Order Comment: Specimen Type: BLOOD SPECIMENOrdering Facility: [facility] Address:[address] [place], [place] [address]Performed By: #### 41503-7 ####[facility] LABCLIA [id number] [address] (RBC) [Entitic vol]95.8 fL Brinaj15.0-100.0[facility] on above:Order Comment: Specimen Type: BLOOD SPECIMENOrdering Facility: [facility] Address:[address] [place], [place] [address]Performed By: #### 91033-2 ####[facility] LABCLIA [id number] [address]Metamyelocytes/100 WBC (Bld)3.5 % NormalAvita Health System [facility] on above:Order Comment: Specimen Type: BLOOD SPECIMENOrdering Facility: [facility] Address:[address] [place], [place] [address]Performed By: #### 21519-4 ####[facility] LABCLIA [id number] [place] [address] [place] AMERICAMonocytes (Bld) [#/Vol]1.03 10*3/uLHigh<0.87[facility] Vincent Medical CenterComsheridan community hospital on above:Order Comment: Specimen Type: BLOOD SPECIMENOrdering Facility: [facility] Address:[address] [place], [place] [address]Performed By: #### [id number] ####[facility] LABCLIA [id number] [place] [address] [place] Monocytes/100 WBC (Bld)9.6 %NormalMercy Health St. Vincent Medical CenterComment on above: Order Comment: Specimen Type: BLOOD SPECIMENOrdering Facility: [facility] Address:[address] [place], [place] [address]Performed By: #### [id number]- 8 ####[facility] LABCLIA [id number] [place] [address] [place] AMERICAMYELO%0.9 %NormalMercy Health St. Vincent Medical CenterComsheridan community hospital on above:Order Comment: Specimen Type: BLOOD SPECIMENOrdering Facility: [facility] Address:[address] [place], [place] [address]Performed By: #### [id number] ####[facility] LABCLIA [id number] [address], [facility]95 [place] Neutrophils (Bld) [#/Vol]8.99 10*3/uLHigh1.45-7.50[facility] Comment on above:Order Comment: Specimen Type: BLOOD SPECIMENOrdering Facility: [facility] Address:[address] [place] [address] Performed By: #### [id number] ####[facility] LABCLIA [id number] [address], [facility]95 [place] Neutrophils/100 WBC (Bld)83.4 %NormalAv[facility] Health [facility] on above: Order Comment: Specimen Type: BLOOD SPECIMENOrdering Facility: [facility] Address:[address] [place], [place] [address]Performed By: #### [id number]- 8 ####[facility] LABCLIA [id number] [place] [address] [place] AMERICANucleated RBC (Bld) [#/Vol] 10*3/uLNormal<0.01[facility] on above:Order Comment: Specimen Type: BLOOD SPECIMENOrdering Facility: [facility] Address:[address] [place], [place] [address]Performed By: #### 43379-5 ####[facility] LABIA [id number] [place] [address] [place] OF AMERICANucleated RBC/100 WBC (Bld) [Ratio]0.0 /100 WBCNormalCTrinity Health System [facility] on above:Order Comment: Specimen Type: BLOOD SPECIMENOrdering Facility: [facility] Address:[address] [place], [place] [address]Performed By: #### 67763- 8 ####[facility] LABCLIA [id number] [place] [address] [place] OF AMERICAPlatelet mean volume (Bld) [Entitic vol]10.7 fLNormal9.0-12.7CTrinity [facility] on above: Order Comment: Specimen Type: BLOOD SPECIMENOrdering Facility: [facility] Address:[address] [place], [place] [address]Performed By: #### 47129- 8 ####[facility] LABIA [id number] [place] [address] [place] AMERICAPlatelets (Bld) [#/Vol]284 10*3/iKNfhjvl397-218SycibnpfkAvita Health System [facility] on above:Order Comment: Specimen Type: BLOOD SPECIMENOrdering Facility: [facility] Address:[address] [place], [place] [address]Performed By: #### 17467-5 ####[facility] LABCLIA [id number] [address] [place] [address] [place] AL[facility] MEMORIAL HOSPITALPlatelets Estimate (Bld) [#/Vol] AdequateNormalCTuscarawas HospitalComsheridan community hospital on above:Order Comment: Specimen Type: BLOOD SPECIMENOrdering Facility: [facility] Address:[address] [place], [place] [address]Performed By: #### 68570-1 ####[facility] LABCLIA [id number] [address] [place] [address] [place]IZENS BAPTISTRB (Bld) [#/Vol]2.89 10*6/uLLow4.20-6.00[facility] Vincent Medical CenterComment on above:Order Comment: Specimen Type: BLOOD SPECIMENOrdering Facility: [facility] Address:[address] [place], [place] [address]Performed By: #### 10879-8 ####[facility] LABCLIA [id number] [address] [place] [address] [place] [facility] HOSPITALRED CELL MORPHReviewed: see results of individual morphologiesNoal [facility] on above:Order Comment: Specimen Type: BLOOD SPECIMENOrdering Facility: [facility] Address:[address] [place], [place] [address]Performed By: #### 57500-1 ####[facility] LABCLIA [id number] [address] [place] [address] [place]IZENS BAPTISTWBC (Bld) [#/Vol]10.78 10*3/uLNormal3.70-11.00[facility] Comment on above:Order Comment: Specimen Type: BLOOD SPECIMENOrdering Facility: [facility] Address:[address] [place], [place] [address] Performed By: #### 36331-5 ####[facility] LABCLIA [id number] [place] [address] [place] WBC Left Shift Ql (Bld)PresentNormalCTrinity Health System [facility] Campus on above: Order Comment: Specimen Type: BLOOD SPECIMENOrdering Facility: [facility] Address:[address] [place], [place] [address]Performed By: #### 30267- 8 ####[facility] LABCLIA [id number] [place] [address] [place] OF AMERICACONSULT PROGon 82-85-2160ICTBKBH PROGNormalMercy Health St. Vincent Medical CenterCYTOMEGALOVIRUS (CMV) DNA, QUANTITATIVE PCR, PLASMAon 50-24-9674ELJ DNA JESSICA+probe [#/Vol]65 IU/mLHighAvita Health [facility] on above:Order Comment: Specimen Type: BLOOD SPECIMENOrdering Facility: [facility] Address:[address] [place], [place] [address]Performed By: #### CMVQNT ####[facility] LABCLIA [id number] [place] [address] [place] CMV DNA JESSICA+probe [Log #/Vol]1.81 log IU/mLNormalMercy Health St. [facility] Comment on above:Order Comment: Specimen Type: BLOOD SPECIMENOrdering Facility: [facility] Address:[address] [place] [address] Performed By: #### CMVQNT ####[facility] LABCLIA [id number] [place] [address] [place] CMV DNA JESSICA+probe Qn (P)DetectedAbnormalNot DetectedMercy Health St. [facility] Center Comment on above:Order Comment: Specimen Type: BLOOD SPECIMENOrdering Facility: [facility] Address:[address] [place] [address] Performed By: #### CMVQNT ####[facility] LABCLIA [id number] [place] [address] [place] Comprehensive metabolic 2000 panelon 66-62-1731Yqlnvqs [Mass/Vol]2.4 g/dLLow 3.9-4.9CTrinity [facility] on above:Order Comment: Specimen Type: BLOOD SPECIMENOrdering Facility: [facility] Address:[address] [place], [place] [address]Performed By: #### 36414-4, , 2776-04 ####[facility] LABCLIA [id number] [address] [place] [address] [place] OF AMERICAALP [Catalytic activity/Vol]759 U/THtci91-312RcqlaoirlAv[facility] on above:Order Comment: Specimen Type: BLOOD SPECIMENOrdering Facility: [facility] Address:[address] [place], [place] [address]Performed By: #### 56620-2, , 2776-04 ####[facility] LABCLIA [id number] [address] [place] OF AMERICAALT [Catalytic activity/Vol]68 U/OLqaa70-68AosnfoqxpAv[facility] on above:Order Comment: Specimen Type: BLOOD SPECIMENOrdering Facility: [facility] Address:[address] [place], [place] [address]Performed By: #### 62214-5, , 2776-04 ####[facility] LABCLIA [id number] [place] [address] [place] AMERICAAnion gap [Moles/Vol]11 mmol/L Normal8-15[facility] on above:Order Comment: Specimen Type: BLOOD SPECIMENOrdering Facility: [facility] Address:[address] [place] [address]Vjuuivhap By: #### 04158-7, , 2776-04 ####[facility] LABCLIA [id number] [address] [place] OF AMERICAAST [Catalytic activity/Vol]60 U/SOmug47-90AobvxridkAv[facility] on above:Order Comment: Specimen Type: BLOOD SPECIMENOrdering Facility: [facility] Address:[address] [place], [place] [address]Performed By: #### 77694-5, 42803-6, 2776-04 ####[facility] LABCLIA [id number] [address] [place] AMERICABilirubin [Mass/Vol]0.4 mg/dL Normal0.2-1.3CTrinity [facility] on above:Order Comment: Specimen Type: BLOOD SPECIMENOrdering Facility: [facility] Address:[address] [place], [place] [address]Performed By: #### 60081-5, 95000-3, 2776-04 ####[facility] LABCLIA [id number] [address] [place] AMERICACalcium [Mass/Vol]8.5 mg/dLNormal 8.5-10.2ClevelFostoria City Hospital on above:Order Comment: Specimen Type: BLOOD SPECIMENOrdering Facility: [facility] Address:[address] [place], [place] [address]Performed By: #### 26817-7, 24180-8, 2776-04 ####[facility] LABCLIA [id number] [address] [place] AMERICAChloride [Moles/Vol]102 mmol/L Hqhqtt20-561OvhlkxfhnAvita Health System [facility] on above:Order Comment: Specimen Type: BLOOD SPECIMENOrdering Facility: [facility] Address:[address] [place], [place] [address]Performed By: #### 82651-7, 93652-9, 2776-04 ####[facility] LABIA [id number] [place]IL[place] [address] [place] AMERICACO2 [Moles/Vol]22 mmol/LNormal 22-30[facility] on above:Order Comment: Specimen Type: BLOOD SPECIMENOrdering Facility: [facility] Address:[address] [place], [place] [address]Performed By: #### 62866-7, 15600-9, 2776-04 ####[facility] [id number] [address] [place] AMERICACreatinine [Mass/Vol]0.64 mg/dL Low0.73-1.22[facility] on above:Order Comment: Specimen Type: BLOOD SPECIMENOrdering Facility: [facility] Address:[address] [place], [place] [address]Performed By: #### 45149-4, , 2776-04 ####[facility] [id number] VILLE [address] [place] OF AMERICAeGFRcr SerPlBld CKD-EPI [id number] mL/min/1.73m???Normal>=60[facility] on above:Order Comment: Specimen Type: BLOOD SPECIMENOrdering Facility: [facility] Address:[address] [place], [place] [address]Result Comment: Estimated Glomerular Filtration Rate (eGFR) is [...] not accurately reflect actual GFR.Performed By: #### 19916-8, , 2776-04 ####[facility] [id number] [address] [place] AMERICAGlucose [Mass/Vol]129 mg/dLHigh 74-99[facility] on above:Order Comment: Specimen Type: BLOOD SPECIMENOrdering Facility: [facility] Address:[address] [place], [place] [address]Result Comment: The [place] [employer] (ADA) provides guidance for cutoff [...] Standards of Medical Care in Diabetes 2016, [place] [employer]. Diabetes Care. 2016.39(Suppl 1).Performed By: #### 25254- 8, , 2776-04 ####[facility] LABCLIA [id number] [address] [place] AMERICAPotassium [Moles/Vol] 3.7 mmol/LNormal3.7-5.1CTrinity [facility] on above:Order Comment: Specimen Type: BLOOD SPECIMENOrdering Facility: [facility] Address:[address] [place], [place] [address]Performed By: #### 23878-7, , 2776-04 ####[facility] LABIA [id number] [address] [place] AMERICAProtein [Mass/Vol]5.4 g/dLLow 6.3-8.0[facility] on above:Order Comment: Specimen Type: BLOOD SPECIMENOrdering Facility: [facility] Address:[address] [place], [place] [address]Performed By: #### 32772-2, , 2776-04 ####[facility] LABIA [id number][place] [address] [place] AMERICASodium [Moles/Vol]135 mmol/LLow 136-144[facility] on above:Order Comment: Specimen Type: BLOOD SPECIMENOrdering Facility: [facility] Address:[address] [place], [place] [address]Performed By: #### 58704-4, , 2776-04 ####[facility] LABCLIA [id number] [address] [place] [address] [place] AMERICAUrea nitrogen [Mass/Vol]23 mg/dL Normal9-24[facility] on above:Order Comment: Specimen Type: BLOOD SPECIMENOrdering Facility: [facility] Address:[address] [place], [place] [address]Performed By: #### 00895-4, 00919-6, 2777-1 ####[facility] LABIA [id number] VILLE [address] [place] AMERICAMagnesium SerPl-mCncon 01-06-2025 Magnesium [Mass/Vol]1.4 mg/dLLow1.7-2.3CTrinity [facility] on above:Order Comment: Specimen Type: BLOOD SPECIMENOrdering Facility: [facility] Address:[address] [place], [place] [address]Performed By: #### 66036-7, 15690-6, 2777- ####[facility] LABIA [id number] VILLE [address] [place] Phosphate SerPl-mCncon 24-03-5531Dscrhmuwa [Mass/Vol]3.4 mg/dLNormal2.7-4.8 [facility] on above:Order Comment: Specimen Type: BLOOD SPECIMENOrdering Facility: [facility] Address:[address] [place], [place] [address]Performed By: #### 19967-1, 12389-2, 2777- ####[facility] LABIA [id number] VILLE [address] [place] OF AMERICATHERAPY NTon 40-06-7369JMCZPPG NTNormalCleveland Formerly Vidant Duplin HospitalTHERAPY NTNormalCleveland Formerly Vidant Duplin HospitalTYPE + SCREENon 52-62-9422DJCVFcompvLjhyqalgsTrinity Health System [facility] on above:Order Comment: Specimen Type: BLOOD SPECIMENOrdering Facility: [facility] Address:[address] [place], [place] [address]Performed By: #### TSCR ####[facility] BLOOD BANKCLIA [id number] [place] [id number] [place]IZENS BAPTISTRh Nom (Bld)PositiveNormOhioHealth Nelsonville Health Center on above:Order Comment: Specimen Type: BLOOD SPECIMENOrdering Facility: [facility] Address:[address] [place], [place] [address]Performed By: #### TSCR ####CC [facility] BLOOD BANKCLIA [id number] [address] OF [facility] CENTERTYPE AND SCREEN EXPIRATION 01/09/2025 23:59NormalCTrinity Health System [facility] on above:Order Comment: Specimen Type: BLOOD SPECIMENOrdering Facility: [facility] Address:[address] [place], [place] [address]Performed By: #### TSCR ####[facility] BLOOD BANKIA [id number] [address] STREETTacrolimus Bld-mCncon 42-92-4778Cjenmuwdia (Bld) [Mass/Vol]7.5 ng/mLNormal5.0-20.0[facility] on above:Order Comment: Specimen Type: BLOOD SPECIMENOrdering Facility: [facility] Address:[address] [place], [place] [address]Result Comment: Individualized target levels for a given [...] situation. Test performed by chemiluminescent immunoassay using Pairin Alinity i.Performed By: #### 65267-2 ####[facility] LABCLIA [id number] [address] OF [facility] MEDICAL CENTERCBC W Auto Differential panel (Bld)on 99-50-5951Pqmnxsmwyhyy Ql (Bld)[facility] on above:Order Comment: Specimen Type: BLOOD SPECIMENOrdering Facility: [facility] Address:[address] [place], [place] [address]Performed By: #### 70113-1 ####[facility] LABCLIA [id number] [place] [address] [place] AMERICABasophils (Bld) [#/Vol]0.00 10*3/uLNormal<0.11CTrinity [facility] on above:Order Comment: Specimen Type: BLOOD SPECIMENOrdering Facility: [facility] Address:[address] [place], [place] [address]Performed By: #### 67463-8 ####[facility] LABCLIA [id number] [place] [address] [place] AMERICABasophils/100 WBC (Bld)0.0 % NormalAvita [facility] System [facility] on above:Order Comment: Specimen Type: BLOOD SPECIMENOrdering Facility: [facility] Address:[address] [place], [place] [address]Performed By: #### 84595-4 ####[facility] LABCLIA [id number] [place] [address] [place] AMERICADifferential cell count method Nom (Bld)[facility] on above:Order Comment: Specimen Type: BLOOD SPECIMENOrdering Facility: [facility] Address:[address] [place], [place] [address]Performed By: #### 10176-0 ####[facility] LABCLIA [id number] [place] [address] [place] AMERICAEosinophils (Bld) [#/Vol]0.00 10*3/uLNormal<0.46[facility] on above:Order Comment: Specimen Type: BLOOD SPECIMENOrdering Facility: [facility] Address:[address] [place], [place] [address]Performed By: #### 94723-6 ####[facility] LABIA [id number] [address], [place] [address] [place] Eosinophils/100 WBC (Bld)0.0 %NormalAv[facility] Health [facility] on above: Order Comment: Specimen Type: BLOOD SPECIMENOrdering Facility: [facility] Address:[address] [place], [place] [address]Performed By: #### 55912- 8 ####[facility] LABIA [id number] [address], [place] [address] [place] AMERICAErythrocyte distribution width (RBC) [Ratio]17.9 %High11.5-15.0[facility] on above:Order Comment: Specimen Type: BLOOD SPECIMENOrdering Facility: [facility] Address:[address] [place], [place] [address]Performed By: #### 84851- 8 ####[facility] SYSTEMIA [id number] [place] [address] [place] AMERICAHematocrit (Bld) [Volume fraction]25.0 %Low39.0-51.0[facility] on above:Order Comment: Specimen Type: BLOOD SPECIMENOrdering Facility: [facility] Address:[address] [place], [place] [address]Performed By: #### 39337- 8 ####[facility] LABIA [id number] [place] [address] [place] AMERICAHemoglobin (Bld) [Mass/Vol]8.2 g/dLLow13.0-17.0[facility] on above:Order Comment: Specimen Type: BLOOD SPECIMENOrdering Facility: [facility] Address:[address] [place], [place] [address]Performed By: #### 00994-4 ####[facility] LABIA [id number] [place] [address] [place] AMERICALymphocytes (Bld) [#/Vol]0.34 10*3/uLLow1.00-4.00[facility] on above:Order Comment: Specimen Type: BLOOD SPECIMENOrdering Facility: [facility] Address:[address] [place], [place] [address]Performed By: #### 47872-3 ####[facility] LABIA [id number] [place] [address] [place] AMERICALymphocytes/100 WBC (Bld)3.0 % NormalAvita Health System Bu[facility] on above:Order Comment: Specimen Type: BLOOD SPECIMENOrdering Facility: [facility] Address:[address] [place], [place] [address]Performed By: #### 46745-1 ####[facility] SYSTEMIA [id number] [place] [address] [place] AMERICAMCH (RBC) [Entitic mass]30.6 bpOtxhob78.0-34.0[facility] on above:Order Comment: Specimen Type: BLOOD SPECIMENOrdering Facility: [facility] Address:[address] [place], [place] [address]Performed By: #### 78414-3 ####[facility] LABIA [id number] [place] [address] [place] MCHC (RBC) [Mass/Vol]32.8 g/mSXuvodj95.5-36.0[facility] on above:Order Comment: Specimen Type: BLOOD SPECIMENOrdering Facility: [facility] Address:[address] [place] [address] Performed By: #### 22857-6 ####[facility] LABIA [id number] [place] [address] [place] MCV (RBC) [Entitic vol]93.3 yWSrcjco50.0-100.0[facility] on above:Order Comment: Specimen Type: BLOOD SPECIMENOrdering Facility: [facility] Address:[address] [place] [address] Performed By: #### 21041-9 ####[facility] LABCLIA [id number] [address] [place] [address] [place] Metamyelocytes/100 WBC (Bld)3.0 %NormalAvita Health System [facility] on above:Order Comment: Specimen Type: BLOOD SPECIMENOrdering Facility: [facility] Address:[address] [place], [place] [address]Performed By: #### 15262-1 ####[facility] LABCLIA [id number] [address], [place] [address] [place] AMERICAMonocytes (Bld) [#/Vol]1.01 10*3/uLHigh<0.87[facility] on above:Order Comment: Specimen Type: BLOOD SPECIMENOrdering Facility: [facility] Address:[address] [place], [place] [address]Performed By: #### 55861- 8 ####[facility] LABCLIA [id number] [address], [facility]95 [place] AMERICAMonocytes/100 WBC (Bld)9.0 % [facility] on above:Order Comment: Specimen Type: BLOOD SPECIMENOrdering Facility: [facility] Address:[address] [place], [place] [address]Performed By: #### 03405-4 ####[facility] LABCLIA [id number] [address], [facility]95 [place] AMERICAMYELO%2.0 %[facility] on above: Order Comment: Specimen Type: BLOOD SPECIMENOrdering Facility: [facility] Address:[address] [place], [place] [address]Performed By: #### 07239- 8 ####[facility] LABCLIA [id number] [address], [facility]95 [place] AMERICANeutrophils (Bld) [#/Vol]9.27 10*3/uLHigh1.45-7.50[facility] on above:Order Comment: Specimen Type: BLOOD SPECIMENOrdering Facility: [facility] Address:[address] [place], [place] [address]Performed By: #### 00723-1 ####[facility] LABCLIA [id number] [place] [address] [place] AMERICANeutrophils/100 WBC (Bld)83.0 % NormalAvita Health System [facility] on above:Order Comment: Specimen Type: BLOOD SPECIMENOrdering Facility: [facility] Address:[address] [place], [place] [address]Performed By: #### 71690-4 ####[facility] LABIA [id number] [place] [address] [place] AMERICANucleated RBC (Bld) [#/Vol]10*3/uLNormal<0.01[facility] on above:Order Comment: Specimen Type: BLOOD SPECIMENOrdering Facility: [facility] Address:[address] [place], [place] [address]Performed By: #### 30671-4 ####[facility] LABCLIA [id number] [place] [address] [place] Nucleated RBC/100 WBC (Bld) [Ratio]0.0 /100 WBCNormSelect Medical Special[facility] [place] Comment on above:Order Comment: Specimen Type: BLOOD SPECIMENOrdering Facility: [facility] Address:[address] [place] [address] Performed By: #### 72433-9 ####[facility] LABCLIA [id number] [place] [address] [place] Ovalocytes LM Ql (Bld)FewNormalCTrinity Health System [facility] Campus on above:Order Comment: Specimen Type: BLOOD SPECIMENOrdering Facility: [facility] Address:[address] [place], [place] [address]Performed By: #### 87556- 8 ####[facility] LABCLIA [id number] [place] [address] [place] AMERICAPlatelet mean volume (Bld) [Entitic vol]10.7 fLNormal9.0-12.7CTrinity [facility] on above: Order Comment: Specimen Type: BLOOD SPECIMENOrdering Facility: [facility] Address:[address] [place], [place] [address]Performed By: #### 90527- 8 ####[facility] LABCLIA [id number] [place] [address] [place] AMERICAPlatelets (Bld) [#/Vol]277 10*3/hOBbvmfp773-816TwofgvdoiAvita [facility] on above:Order Comment: Specimen Type: BLOOD SPECIMENOrdering Facility: [facility] Address:[address] [place], [place] [address]Performed By: #### 18296-0 ####[facility] LABCLIA [id number] [place] [address] [place] AMERICAPlatelets Estimate (Bld) [#/Vol] AdequateNormalCTrinity Health System East Campus on above:Order Comment: Specimen Type: BLOOD SPECIMENOrdering Facility: [facility] Address:[address] [place], [place] [address]Performed By: #### [id number] ####[facility] LABCLIA [id number] [address] [place] [address] [place] AMERICAPolychromasia LM Ql (Bld)SlightNormalCTrinity Health System [facility] on above:Order Comment: Specimen Type: BLOOD SPECIMENOrdering Facility: [facility] Address:[address] [place], [place] [address]Performed By: #### [id number] ####[facility] LABIA [id number] [place] [id number] [place] RBC (Bld) [#/Vol]2.68 10*6/uLLow4.20-6.00[facility] on above:Order Comment: Specimen Type: BLOOD SPECIMENOrdering Facility: [facility] Address:[address] [place], [place] [address]Performed By: #### 54206-0 ####[facility] LABCLIA [id number] [address] [place] [address] [place] AMERICARED CELL MORPH Reviewed: see results of individual [facility] Comment on above:Order Comment: Specimen Type: BLOOD SPECIMENOrdering Facility: [facility] Address:[address] [place] [address] Performed By: #### [id number] ####[facility] LABCLIA [id number] [address] [place] [address] [place] Target cells LM Ql (Bld)[facility] on above: Order Comment: Specimen Type: BLOOD SPECIMENOrdering Facility: [facility] Address:[address] [place], [place] [address]Performed By: #### [id number]- 8 ####[facility] LABCLIA [id number] [address], [facility]95 [place] OF AMERICAToxic granules LM Ql (Bld)Present NormalAvita Health System [facility] on above:Order Comment: Specimen Type: BLOOD SPECIMENOrdering Facility: [facility] Address:[address] [place], [place] [address]Performed By: #### 47259-5 ####[facility] LABCLIA [id number] [address] [place] [address] [place] OF AMERICAWBC (Bld) [#/Vol]11.17 10*3/uLHigh3.70-11.00[facility] on above:Order Comment: Specimen Type: BLOOD SPECIMENOrdering Facility: [facility] Address:[address] [place], [place] [address]Performed By: #### 83876-3 ####[facility] LABCLIA [id number] [address] [place] [address] [place] WBC Left Shift Ql (Bld)PresentNormalClevelCarteret Health CareComment on above: Order Comment: Specimen Type: BLOOD SPECIMENOrdering Facility: [facility] Address:[address] [place], [place] [address]Performed By: #### 30626- 8 ####[facility] LABCLIA [id number] [address] [place] [address] [place] AMERICAComprehensive metabolic 2000 panelon 48-52-4765Cwggbqj [Mass/Vol]2.0 g/dLLow3.9-4.9ClevelCarteret Health Care Comment on above:Order Comment: Specimen Type: BLOOD SPECIMENOrdering Facility: [facility] Address:[address] [place] [address] Performed By: #### 35897-7, 11837-1, 2776- ####[facility] LABCLIA [id number] [place] [address] [place] OF AMERICAALP [Catalytic activity/Vol]520 U/GUfrn81-151MovvxzongMercy Health St. [facility] Comment on above:Order Comment: Specimen Type: BLOOD SPECIMENOrdering Facility: [facility] Address:[address] [place] [address] Performed By: #### 26570-3, 64704-1, 7-1 ####[facility] LABCLIA [id number] [address] [place] OF AMERICAALT [Catalytic activity/Vol]62 U/BHfhu76-09EhngotuxlMercy Health St. [facility] Comment on above:Order Comment: Specimen Type: BLOOD SPECIMENOrdering Facility: [facility] Address:[address] [place], [place] [address] Performed By: #### 94087-2, 93899-9, 7-1 ####[facility] LABCLIA [id number] [place] [address] [place] AMERICAAnion gap [Moles/Vol]11 mmol/LNormal8-15[facility]. Vincent Medical CenterComment on above:Order Comment: Specimen Type: BLOOD SPECIMENOrdering Facility: [facility] Address:[address] [place] [address] Performed By: #### 23849-7, 90625-4, 2776-04 ####[facility] LABCLIA [id number] AVENUEU.S. NAVAL HOSPITALK [place] [address] [place] OF AMERICAAST [Catalytic activity/Vol]57 U/KEyfo73-20FahibwnmzMercy Health St. [facility] Comment on above:Order Comment: Specimen Type: BLOOD SPECIMENOrdering Facility: [facility] Address:[address] [place] [address] Performed By: #### 15929-0, , 2776-04 ####[facility] LABCLIA [id number] [place] [address] [place] AMERICABilirubin [Mass/Vol]0.4 mg/dLNormal0.2-1.3CTuscarawas Hospital Comment on above:Order Comment: Specimen Type: BLOOD SPECIMENOrdering Facility: [facility] Address:[address] [place] [address] Performed By: #### 21767-5, , 2776-04 ####[facility] LABCLIA [id number] AVENUEBRENDA VIL[place] [address] [place] AMERICACalcium [Mass/Vol]8.1 mg/dLLow8.5-10.2CTuscarawas HospitalComsheridan community hospital on above:Order Comment: Specimen Type: BLOOD SPECIMENOrdering Facility: [facility] Address:[address] [place] [address] Performed By: #### 01289-1, , 2776-04 ####[facility] LABCLIA [id number] [address] [address] [place] OF AMERICAChloride [Moles/Vol]102 mmol/MWesach11-117HvwitbwdpMercy Health St. [facility] Comment on above:Order Comment: Specimen Type: BLOOD SPECIMENOrdering Facility: [facility] Address:[address] [place] [address] Performed By: #### 59652-3, , 2776-04 ####[facility] LABIA [id number] VIL[place] [address] [place] AMERICACO2 [Moles/Vol]21 mmol/ZIlb74-06MjmgpngofAv[facility] on above:Order Comment: Specimen Type: BLOOD SPECIMENOrdering Facility: [facility] Address:[address] [place], [place] [address]Performed By: #### 56972-2, , 2776-04 ####[facility] LABGRACE [facility] [id number] VIL[place] [address] [place] Creatinine [Mass/Vol]0.65 mg/dLLow0.73-1.22[facility] on above:Order Comment: Specimen Type: BLOOD SPECIMENOrdering Facility: [facility] Address:[address] [place], [place] [address]Performed By: #### 19993-3, , 2776-04 ####[facility]ITA HEALTH SYSTEMIA [id number] VILLE [address] [place] eGFRcr SerPlBld CKD-EPI 1831666 mL/min/1.73m???Normal>=60[facility] on above:Order Comment: Specimen Type: BLOOD SPECIMENOrdering Facility: [facility] Address:[address] [place], [place] [address]Result Comment: Estimated Glomerular Filtration Rate (eGFR) is [...] accurately reflect actual GFR. Performed By: #### 91721-3, , 2776-04 ####[facility] LABIA [id number] [address] [place] AMERICAGlucose [Mass/Vol]131 mg/cNEogm18-94VvngqbhbmAvita [facility] on above:Order Comment: Specimen Type: BLOOD SPECIMENOrdering Facility: [facility] Address:[address] [place], [place] [address]Result Comment: The [place] Diabetes Association (ADA) provides guidance for cutoff [...] Standards of Medical Care in Diabetes 2016, [place] [employer]. Diabetes Care. 2016.39(Suppl 1).Performed By: #### 53585-4, 87716-1, 2776-04 ####[facility] LABIA [id number] [address] [place] AMERICAPotassium [Moles/Vol]3.7 mmol/LNormal3.7-5.1 [facility] on above:Order Comment: Specimen Type: BLOOD SPECIMENOrdering Facility: [facility] Address:[address] [place] [address]Lvpmedlnd By: #### 67160-8, 29530-0, 2776-04 ####[facility] LABGRACE [facility] [id number] [address] [place] AMERICAProtein [Mass/Vol]4.8 g/dLLow6.3-8.0[facility] on above:Order Comment: Specimen Type: BLOOD SPECIMENOrdering Facility: [facility] Address:[address] [place], [place] [address]Performed By: #### 68051-2, 37773-8, 2777- ####[facility] LABCLIA [id number] VILLE [address] [place] AMERICASodium [Moles/Vol]134 mmol/NIpt657-367RuvzzqmxqAv[facility] on above:Order Comment: Specimen Type: BLOOD SPECIMENOrdering Facility: [facility] Address:[address] [place], [place] [address]Performed By: #### 51712-1, 58429-9, 2777- ####[facility] LABIA [id number] VILLE [address] [place] AMERICAUrea nitrogen [Mass/Vol]17 mg/dLNormal9-24 [facility] on above:Order Comment: Specimen Type: BLOOD SPECIMENOrdering Facility: [facility] Address:[address] [place], [place] [address]Performed By: #### 97176-2, 55088-2, 2777- ####[facility] LABIA [id number] VILLE [address] [place] AMERICAMagnesium SerPl-mCncon 33-08-7097Eppapxbad [Mass/Vol]1.5 mg/dLLow1.7-2.3ClevelFostoria City Hospital on above:Order Comment: Specimen Type: BLOOD SPECIMENOrdering Facility: [facility] Address:[address] [place], [place] [address]Performed By: #### 76041- 8, 19502-1, 2777 ####[facility] LABGRACE [facility] [id number] VILLE [address] [place] AMERICAPhosphate SerPl-mCnc on 23-66-3664Mcqrizgpq [Mass/Vol]3.2 mg/dLNormal2.7-4.8ClevelFostoria City Hospital on above:Order Comment: Specimen Type: BLOOD SPECIMENOrdering Facility: [facility] Address:[address] [place], [place] [address]Performed By: #### 36446-9, 68670-2, 2777-1 ####[facility] LABCLIA [id number] [place] [address] [place] AMERICATacrolimus Bld-mCncon 15-45-6575Wnaytgdhmu (Bld) [Mass/Vol]5.5 ng/mLNormal5.0-20.0[facility] on above:Order Comment: Specimen Type: BLOOD SPECIMENOrdering Facility: [facility] Address:[address] [place], [place] [address]Result Comment: Individualized target levels for a given [...] situation. Test performed by chemiluminescent immunoassay using [employer] i.Performed By: #### 12155-4 ####[facility] LABIA [id number] [place] [address] [place] AMERICAUrinalysis complete panel (U)on 98-18-1516Lrllojgy LM.HPF (Urine sed) [#/Area]NegativeNormalNegativeAv[facility] on above:Order Comment: Specimen Type: URINE SPECIMENOrdering Facility: [facility] Address:[address] [place], [place] [address]Performed By: #### 10276-0 ####[facility] LABIA [id number] [place] [address] [place] AMERICABilirubin Ql (U) NegativeNormalNegativeAvita [facility] on above:Order Comment: Specimen Type: URINE SPECIMENOrdering Facility: [facility] Address:[address] [place], [place] [address]Performed By: #### 89593-3 ####[facility] LABIA [id number] [address] [place] [address] [place] AMERICAClarity (Unsp spec)ClearNormal ClearAvita Health System [facility] on above:Order Comment: Specimen Type: URINE SPECIMENOrdering Facility: [facility] Address:[address] [place], [place] [address]Performed By: #### 76965-5 ####[facility] LABCLIA [id number] [address] [place] [address] [place] AMERICAColor (U)YellowNormalYellowAvita Health System [facility] on above:Order Comment: Specimen Type: URINE SPECIMENOrdering Facility: [facility] Address:[address] [place], [place] [address]Performed By: #### 27502-7 ####[facility] LABCLIA [id number] [address] [place] [address] [place] AMERICAEpithelial cells LM.HPF (Urine sed) [#/Area]None SeenNormalCTrinity Health System East Campus on above:Order Comment: Specimen Type: URINE SPECIMENOrdering Facility: [facility] Address:[address] [place], [place] [address]Performed By: #### 96007-5 ####[facility] LABCLIA [id number] [address] [place] [address] [place] AMERICAGlucose Test strip (U) [Mass/Vol]NegativeNormalNegativeAv[facility] on above: Order Comment: Specimen Type: URINE SPECIMENOrdering Facility: [facility] Address:[address] [place], [place] [address]Performed By: #### 89536- 8 ####[facility] LABCLIA [id number] [address] [place] [address] [place] AMERICAHemoglobin Ql (U)NegativeNormal NegativeAvita Health System [facility] on above:Order Comment: Specimen Type: URINE SPECIMENOrdering Facility: [facility] Address:[address] [place], [place] [address]Performed By: #### 42330-6 ####[facility] LABCLIA [id number] [address] [place] [address] [place] AMERICAHyaline casts (Urine sed) [#/Area]1-3 /LPFAbnormal0 /LPF [facility] on above:Order Comment: Specimen Type: URINE SPECIMENOrdering Facility: [facility] Address:[address] [place], [place] [address]Performed By: #### 33383-8 ####[facility] LABCLIA [id number] [address] [place] [address] [place] AMERICAKetones Ql (U)NegativeNormalNegativeAv[facility] on above:Order Comment: Specimen Type: URINE SPECIMENOrdering Facility: [facility] Address:[address] [place], [place] [address]Performed By: #### 88711-6 ####[facility] LABCLIA [id number] [address] [place] [address] [place] AMERICALeukocyte esterase Test strip Ql (U)NegativeNormalNegativeAv[facility] on above:Order Comment: Specimen Type: URINE SPECIMENOrdering Facility: [facility] Address:[address] [place], [place] [address]Performed By: #### 37298-2 ####[facility] LABCLIA [id number] [address] [place] [address] [place] AMERICANitrite Ql (U)Negative NormalNegativeAvita [facility] on above:Order Comment: Specimen Type: URINE SPECIMENOrdering Facility: [facility] Address:[address] [place], [place] [address]Performed By: #### 32435-1 ####[facility] LABCLIA [id number] [address] [place] [address] [place] AMERICApH (U)5.5 [pH]Normal5.0-8.0[facility] Comment on above:Order Comment: Specimen Type: URINE SPECIMENOrdering Facility: [facility] Address:[address] [place] [address] Performed By: #### 48704-3 ####[facility] LABCLIA [id number] [place] [address] [place] Protein (U) [Mass/Vol]1+AbnormalNegativeAv[facility] on above:Order Comment: Specimen Type: URINE SPECIMENOrdering Facility: [facility] Address:[address] [place], [place] [address]Performed By: #### 40891-4 ####[facility] LABIA [id number] [place] [address] [place] SYCAMORE MEDICAL CENTERRB LM.HPF (Urine sed) [#/Area]0-2 /HPFNormal0-2 /HPFAvita Health System [facility] on above:Order Comment: Specimen Type: URINE SPECIMENOrdering Facility: [facility] Address:[address] [place], [place] [address]Performed By: #### 61843- 8 ####[facility] LABIA [id number] [place] [address] [place] AMERICASpecific gravity (U) [Rel density]1.170Iwnkqr4.005-1.030[facility] on above:Order Comment: Specimen Type: URINE SPECIMENOrdering Facility: [facility] Address:[address] [place], [place] [address]Performed By: #### 32889- 8 ####[facility] LABIA [id number] [place] [address] [place] SYCAMORE MEDICAL CENTERUrobilinogen Ql (U)0.2 EU/dL Normal0.2-1.0 EU/dLAvita Health System Bucyrus Hospital on above:Order Comment: Specimen Type: URINE SPECIMENOrdering Facility: [facility] Address:[address] [place], [place] [address]Performed By: #### 98298-2 ####[facility] LABCLIA [id number] [address] [place] [address] [place] AMERICAWBC LM.HPF (Urine sed) [#/Area]0- 5 /HPFNormal0-5 /HPFAvita Health System [facility] on above:Order Comment: Specimen Type: URINE SPECIMENOrdering Facility: [facility] Address:[address] [place], [place] [address]Performed By: #### 92322-4 ####[facility] LABCLIA [id number] [address] [place] [address] [place] AMERICAYeast.budding LM.HPF (Urine sed) [#/Area]PresentAbnormalNone SeenAvita Health System Bu[facility] Hospital on above:Order Comment: Specimen Type: URINE SPECIMENOrdering Facility: [facility] Address:[address] [place], [place] [address]Performed By: #### 59115- 8 ####[facility] LABCLIA [id number] [address] [place] [facility] [place] AMERICABacteria LM.HPF (Urine sed) [#/Area]NegativeNormalNegativeAv[facility] on above:Order Comment: Specimen Type: URINE SPECIMENOrdering Facility: [facility] Address:[address] [place], [place] [address]Performed By: #### 70885- 8 ####[facility] LABCLIA [id number] [address] [place] [address] [place] AMERICABilirubin Ql (U)NegativeNormal NegativeAvita Health System [facility] on above:Order Comment: Specimen Type: URINE SPECIMENOrdering Facility: [facility] Address:[address] [place], [place] [address]Performed By: #### 26291-8 ####[facility] LABCLIA [id number] [address] [place] [address] [place] AMERICAClarity (Unsp spec)CloudyAbnormalClearCleveland Clinic ClevelandComment on above:Order Comment: Specimen Type: URINE SPECIMENOrdering Facility: [facility] Address:[address] [place], [place] [address]Performed By: #### 39137-2 ####[facility] LABCLIA [id number] [address] [place] [address] [place] Color (U)YellowNormalYellowAvita Health System [facility] on above:Order Comment: Specimen Type: URINE SPECIMENOrdering Facility: [facility] Address:[address] [place], [place] [address]Performed By: #### 91243- 8 ####[facility] LABIA [id number] [address], [facility]95 [place] AMERICAEpithelial cells LM.HPF (Urine sed) [#/Area]FewNormalCTrinity Health System East Campus on above:Order Comment: Specimen Type: URINE SPECIMENOrdering Facility: [facility] Address:[address] [place], [place] [address]Performed By: #### 80403-3 ####[facility] LABIA [id number] [address], [facility]95 [place] AMERICAGlucose Test strip (U) [Mass/Vol] NegativeNormalNegativeAv[facility] on above:Order Comment: Specimen Type: URINE SPECIMENOrdering Facility: [facility] Address:[address] [place], [place] [address]Performed By: #### 20698-9 ####[facility] LABCLIA [id number] [address] [place] [address] [place] AMERICAHemoglobin Ql (U)NegativeNormal NegativeAvita Health System [facility] on above:Order Comment: Specimen Type: URINE SPECIMENOrdering Facility: [facility] Address:[address] [place], [place] [address]Performed By: #### 33340-7 ####[facility] LABCLIA [id number] [address] [place] [address] [place] AMERICAHyaline casts (Urine sed) [#/Area]1-3 /LPFAbnormal0 /LPF [facility] on above:Order Comment: Specimen Type: URINE SPECIMENOrdering Facility: [facility] Address:[address] [place], [place] [address]Performed By: #### 25037-4 ####[facility] LABCLIA [id number] [address] [place] [address] [place] AMERICAKetones Ql (U)NegativeNormalNegativeAvita [facility] on above:Order Comment: Specimen Type: URINE SPECIMENOrdering Facility: [facility] Address:[address] [place], [place] [address]Performed By: #### 57311-3 ####[facility] LABCLIA [id number] [place] [address] [place] AMERICALeukocyte esterase Test strip Ql (U)NegativeNormalNegativeAvita [facility] on above:Order Comment: Specimen Type: URINE SPECIMENOrdering Facility: [facility] Address:[address] [place], [place] [address]Performed By: #### 99152-0 ####[facility] LABCLIA [id number] [address] [place] [address] [place] AMERICANitrite Ql (U)Negative NormalNegativeAvita [facility] on above:Order Comment: Specimen Type: URINE SPECIMENOrdering Facility: [facility] Address:[address] [place], [place] [address]Performed By: #### 03472-3 ####[facility] LABCLIA [id number] [address] [place] [address] [place] AMERICApH (U)6.0 [pH]Normal5.0-8.0[facility] Comment on above:Order Comment: Specimen Type: URINE SPECIMENOrdering Facility: [facility] Address:[address] [place] [address] Performed By: #### 08124-9 ####[facility] LABIA [id number] [place] [address] [place] Protein (U) [Mass/Vol]1+AbnormalNegativeAv[facility] on above:Order Comment: Specimen Type: URINE SPECIMENOrdering Facility: [facility] Address:[address] [place], [place] [address]Performed By: #### 74588-6 ####[facility] LABIA [id number] [address] STATES OF SYCAMORE MEDICAL CENTERRBC LM.HPF (Urine sed) [#/Area]3-5 /HPFAbnormal0-2 /HPFAvita Health System [facility] on above: Order Comment: Specimen Type: URINE SPECIMENOrdering Facility: [facility] Address:[address] [place], [place] [address]Performed By: #### 64815- 8 ####[facility] [id number] [place] [address] [place] AMERICASpecific gravity (U) [Rel density]1.212Esyyex3.005-1.030[facility] on above:Order Comment: Specimen Type: URINE SPECIMENOrdering Facility: [facility] Address:[address] [place], [place] [address]Performed By: #### 55988- 8 ####[facility] [id number] [address] OF SYCAMORE MEDICAL CENTERUrobilinogen Ql (U)0.2 EU/dL Normal0.2-1.0 EU/dLAvita Health System Bucy[facility] Hospital on above:Order Comment: Specimen Type: URINE SPECIMENOrdering Facility: [facility] Address:[address] [place], [place] [address]Performed By: #### 96781-5 ####[facility] LABIA [id number] [place] [address] [place] AMERICAWBC LM.HPF (Urine sed) [#/Area]0- 5 /HPFNormal0-5 /HPFAvita Health System [facility] on above:Order Comment: Specimen Type: URINE SPECIMENOrdering Facility: [facility] Address:[address] [place], [place] [address]Performed By: #### 20624-4 ####[facility] LABIA [id number] [place] [address] [place] AMERICAYeast.budding LM.HPF (Urine sed) [#/Area]PresentAbnormalNone SeenAvita Health System [facility] on above:Order Comment: Specimen Type: URINE SPECIMENOrdering Facility: [facility] Address:[address] [place], [place] [address]Performed By: #### 47725- 8 ####[facility] LABIA [id number] [place] [address] [place] AMERICACBC W Auto Differential panel (Bld)on 68-20-0152Xxoyxfpdunme Ql (Bld)PresentNormalCTuscarawas Hospital Comment on above:Order Comment: Specimen Type: BLOOD SPECIMENOrdering Facility: [facility] Address:[address] [place] [address] Performed By: #### 51357-4 ####[facility] LABIA [id number] [place] [address] [place] Basophils (Bld) [#/Vol]0.17 10*3/uLHigh<0.11CTrinity Health System [facility] Campus on above:Order Comment: Specimen Type: BLOOD SPECIMENOrdering Facility: [facility] Address:[address] [place], [place] [address]Performed By: #### 85076-3 ####[facility] LABIA [id number] [place] [address] [place] AMERICABasophils/100 WBC (Bld)1.7 %NormalAvita Health System [facility] on above:Order Comment: Specimen Type: BLOOD SPECIMENOrdering Facility: [facility] Address:[address] [place], [place] [id number] By: #### [id number] ####[facility] LABCLIA [id number] [address], [place] [address] [place] OF AMERICADacrocytes LM Ql (Bld)FewNormal [facility] on above:Order Comment: Specimen Type: BLOOD SPECIMENOrdering Facility: [facility] Address:[address] [place], [place] [address]Performed By: #### [id number] ####[facility] LABCLIA [id number] [address], [place] [address] [place] AMERICADifferential cell count method Nom (Bld)ManualNormalCTrinity Health System [facility] on above:Order Comment: Specimen Type: BLOOD SPECIMENOrdering Facility: [facility] Address:[address] [place], [place] [address]Performed By: #### 31593-1 ####[facility] LABCLIA [id number] [address], [place] [address] [place] Eosinophils (Bld) [#/Vol]0.00 10*3/uLNormal<0.46[facility] Comment on above:Order Comment: Specimen Type: BLOOD SPECIMENOrdering Facility: [facility] Address:[address] [place] [address] Performed By: #### [id number] ####[facility] LABCLIA [id number] [place] [address] [place] Eosinophils/100 WBC (Bld)0.0 %NormalAvita Health System [facility] on above: Order Comment: Specimen Type: BLOOD SPECIMENOrdering Facility: [facility] Address:[address] [place], [place] [address]Performed By: #### 48052- 8 ####[facility] LABCLIA [id number] [address], [place] [address] [place] OF AMERICAErythrocyte distribution width (RBC) [Ratio]17.2 %High11.5-15.0[facility] on above:Order Comment: Specimen Type: BLOOD SPECIMENOrdering Facility: [facility] Address:[address] [place], [place] [address]Performed By: #### 56450- 8 ####[facility] LABIA [id number] [place] [address] [place] AMERICAHematocrit (Bld) [Volume fraction]27.7 %Low39.0-51.0[facility] on above:Order Comment: Specimen Type: BLOOD SPECIMENOrdering Facility: [facility] Address:[address] [place], [place] [address]Performed By: #### 94286- 8 ####[facility] LABIA [id number] [place] [address] [place] AMERICAHemoglobin (Bld) [Mass/Vol]9.0 g/dLLow13.0-17.0[facility] on above:Order Comment: Specimen Type: BLOOD SPECIMENOrdering Facility: [facility] Address:[address] [place], [place] [address]Performed By: #### 56064-1 ####[facility] LABIA [id number] [place] [address] [place] AMERICALymphocytes (Bld) [#/Vol]0.60 10*3/uLLow1.00-4.00[facility] on above:Order Comment: Specimen Type: BLOOD SPECIMENOrdering Facility: [facility] Address:[address] [place], [place] [address]Performed By: #### 33931-9 ####[facility] LABIA [id number] [place] [address] [place] OF AMERICALymphocytes/100 WBC (Bld)6.0 % NormalAvita Health System [facility] on above:Order Comment: Specimen Type: BLOOD SPECIMENOrdering Facility: [facility] Address:[address] [place], [place] [address]Performed By: #### 27826-3 ####[facility] LABIA [id number] [place] [address] [place] [facility] MEDICAL CENTERMCH (RBC) [Entitic mass]30.7 kdFbsrwx57.0-34.0[facility] on above:Order Comment: Specimen Type: BLOOD SPECIMENOrdering Facility: [facility] Address:[address] [place], [place] [address]Performed By: #### 42414-7 ####[facility] LABIA [id number] [place] [address] [place] MCHC (RBC) [Mass/Vol]32.5 g/aOGeuhod41.5-36.0[facility] on above:Order Comment: Specimen Type: BLOOD SPECIMENOrdering Facility: [facility] Address:[address] [place] [address] Performed By: #### 91480-8 ####[facility] SYSTEM[facility] [id number] [address] [place] MCV (RBC) [Entitic vol]94.5 pQBikfke90.0-100.0[facility] on above:Order Comment: Specimen Type: BLOOD SPECIMENOrdering Facility: [facility] Address:[address] [place] [address] Performed By: #### 63336-3 ####[facility] LABIA [id number] [address] STATES [place] Metamyelocytes/100 WBC (Bld)7.8 %NormalAv[facility] on above:Order Comment: Specimen Type: BLOOD SPECIMENOrdering Facility: [facility] Address:[address] [place], [place] [address]Performed By: #### 50508-9 ####[facility] LABIA [id number] [address], [place] [address] [place] AMERICAMonocytes (Bld) [#/Vol]1.39 10*3/uLHigh<0.87[facility] on above:Order Comment: Specimen Type: BLOOD SPECIMENOrdering Facility: [facility] Address:[address] [place], [place] [address]Performed By: #### 96932- 8 ####[facility] LABCLIA [id number] [address] [place] [address] [place] AMERICAMonocytes/100 WBC (Bld)13.8 % NormalAv[facility] on above:Order Comment: Specimen Type: BLOOD SPECIMENOrdering Facility: [facility] Address:[address] [place], [place] [address]Performed By: #### 51567-2 ####[facility] LABCLIA [id number] [address], [place] [address] [place] AMERICAMYELO%2.6 %NormalAv[facility] on above: Order Comment: Specimen Type: BLOOD SPECIMENOrdering Facility: [facility] Address:[address] [place], [place] [address]Performed By: #### 97793- 8 ####[facility] LABCLIA [id number] [address], [facility]95 [place] AMERICANeutrophils (Bld) [#/Vol]6.84 10*3/uLNormal1.45-7.50[facility] on above:Order Comment: Specimen Type: BLOOD SPECIMENOrdering Facility: [facility] Address:[address] [place], [place] [address]Performed By: #### 13609-4 ####[facility] LABCLIA [id number] [place] [address] [place] AMERICANeutrophils/100 WBC (Bld)68.1 % NormalAv[facility] on above:Order Comment: Specimen Type: BLOOD SPECIMENOrdering Facility: [facility] Address:[address] [place], [place] [address]Performed By: #### 27322-9 ####[facility] LABCLIA [id number] [place] [address] [place] AMERICANucleated RBC (Bld) [#/Vol]10*3/uLNormal<0.01[facility] on above:Order Comment: Specimen Type: BLOOD SPECIMENOrdering Facility: [facility] Address:[address] [place], [place] [address]Performed By: #### 29357-2 ####[facility] LABCLIA [id number] [place] [address] [place] Nucleated RBC/100 WBC (Bld) [Ratio]0.0 /100 WBCNormalCTuscarawas Hospital Comment on above:Order Comment: Specimen Type: BLOOD SPECIMENOrdering Facility: [facility] Address:[address] [place] [address] Performed By: #### 34226-3 ####[facility] LABCLIA [id number] [place] [address] [place] Ovalocytes LM Ql (Bld)FewNormalCTrinity Health System East Campus on above:Order Comment: Specimen Type: BLOOD SPECIMENOrdering Facility: [facility] Address:[address] [place], [place] [address]Performed By: #### 19511- 8 ####[facility] LABCLIA [id number] [place] [address] [place] AMERICAPlatelet mean volume (Bld) [Entitic vol]10.9 fLNormal9.0-12.7CTuscarawas HospitalComsheridan community hospital on above: Order Comment: Specimen Type: BLOOD SPECIMENOrdering Facility: [facility] Address:[address] [place], [place] [address]Performed By: #### 94537- 8 ####[facility] LABCLIA [id number] [place] [address] [place] AMERICAPlatelets (Bld) [#/Vol]255 10*3/yEWtuuuo989-669KacggtyydAv[facility] on above:Order Comment: Specimen Type: BLOOD SPECIMENOrdering Facility: [facility] Address:[address] [place], [place] [address]Performed By: #### 27612-7 ####[facility] LABCLIA [id number] [facility]ITALD [facility]ALK [address] [place] [address] [place] AMERICAPlatelets Estimate (Bld) [#/Vol] AdequateNormalCTrinity Health System East Campus on above:Order Comment: Specimen Type: BLOOD SPECIMENOrdering Facility: [facility] Address:[address] [place], [place] [address]Performed By: #### 57550-5 ####[facility] LABCLIA [id number] [facility] [address] [place] [address] [place] AMERICAPolychromasia LM Ql (Bld)SlightNormalCTrinity Health System East Campus on above:Order Comment: Specimen Type: BLOOD SPECIMENOrdering Facility: [facility] Address:[address] [place], [place] [address]Performed By: #### 22588-1 ####[facility] LABCLIA [id number] [facility] [address] [place] [address] [place] RBC (Bld) [#/Vol]2.93 10*6/uLLow4.20-6.00[facility] on above:Order Comment: Specimen Type: BLOOD SPECIMENOrdering Facility: [facility] Address:[address] [place], [place] [address]Performed By: #### 78883-3 ####[facility] LABCLIA [id number] [facility] [address] [place] [address] [place] AMERICARBC FRAGMENTSFew AbnormalNone SeenAvita Health System [facility] on above:Order Comment: Specimen Type: BLOOD SPECIMENOrdering Facility: [facility] Address:[address] [place], [place] [address]Performed By: #### 73719-6 ####[facility] LABCLIA [id number] [address] [place] [address] [place] AMERICARED CELL MORPHReviewed: see results of individual [facility] on above:Order Comment: Specimen Type: BLOOD SPECIMENOrdering Facility: [facility] Address:[address] [place], [place] [address]Performed By: #### 50961-3 ####[facility] LABCLIA [id number] [address] [place] [address] [place] AMERICATarget cells LM Ql (Bld)FewBlanchard Valley Health [facility] on above:Order Comment: Specimen Type: BLOOD SPECIMENOrdering Facility: [facility] Address:[address] [place], [place] [address]Performed By: #### 45472-9 ####[facility] LABCLIA [id number] [address], [place] [address] [place] AMERICAToxic granules LM Ql (Bld)[facility] on above:Order Comment: Specimen Type: BLOOD SPECIMENOrdering Facility: [facility] Address:[address] [place], [place] [address]Performed By: #### 67520-1 ####[facility] LABCLIA [id number] [address], [place] [address] [place] WBC (Bld) [#/Vol]10.04 10*3/uLNormal3.70-11.00[facility] on above:Order Comment: Specimen Type: BLOOD SPECIMENOrdering Facility: [facility] Address:[address] [place] [address] Performed By: #### 56949-7 ####[facility] LABCLIA [id number] [address], [facility]95 [place] WBC Left Shift Ql (Bld)[facility] on above: Order Comment: Specimen Type: BLOOD SPECIMENOrdering Facility: [facility] Address:[address] [place], [place] [address]Performed By: #### 90895- 8 ####[facility] LABCLIA [id number] [address] [address] [place] AMERICACRP SerPl-mCncon 71-99-9108KOY [Mass/Vol]23.2 mg/dLHigh<0.9[facility] on above:Order Comment: Specimen Type: BLOOD SPECIMENOrdering Facility: [facility] Address:[address] [place], [place] [address]Performed By: #### 1988-5 ####[facility] LABCLIA [id number] [address] [address] [place] OF AMERICACT ABD/PEL WO IVCONon 01-04-2025 CT ABD/PEL WO IVCLakeHealth Beachwood Medical CenterCT CHEST WO IVCONon 65-23-8956BU CHEST WO IVCLakeHealth Beachwood Medical CenterComprehensive metabolic 2000 panelon 93-70-5291Eghiygp [Mass/Vol]2.2 g/dLLow3.9-4.9ClevelFostoria City Hospital on above:Order Comment: Specimen Type: BLOOD SPECIMENOrdering Facility: [facility] Address:[address] [place], [place] [address]Performed By: #### 59298-0, , 2776-04 ####[facility] LABCLIA [id number] [place] [address] [place] AMERICAALP [Catalytic activity/Vol]616 U/UIxgn73-972 [facility] on above:Order Comment: Specimen Type: BLOOD SPECIMENOrdering Facility: [facility] Address:[address] [place], [place] [address]Performed By: #### 30822-6, 10555-7, 2776-1 ####[facility] LABCLIA [id number] [place] [address] [place] AMERICAALT [Catalytic activity/Vol]69 U/PElos32-34 [facility] on above:Order Comment: Specimen Type: BLOOD SPECIMENOrdering Facility: [facility] Address:[address] [place], [place] [address]Performed By: #### 93895-4, 13935-0, 2776-04 ####[facility] LABCLIA [id number] AVENUEU.S. NAVAL HOSPITALK [place] [address] [place] AMERICAAnion gap [Moles/Vol]11 mmol/LNormal8-15[facility] on above:Order Comment: Specimen Type: BLOOD SPECIMENOrdering Facility: [facility] Address:[address] [place], [place] [address]Performed By: #### 79328-9, , 2776-04 ####[facility] LABCLIA [id number] [place] [address] [place] AMERICAAST [Catalytic activity/Vol]105 U/FFldx92-06 [facility] on above:Order Comment: Specimen Type: BLOOD SPECIMENOrdering Facility: [facility] Address:[address] [place], [place] [address]Performed By: #### 28302-6, , 2776-04 ####[facility] LABCLIA [id number] [place] [address] [place] AMERICABilirubin [Mass/Vol]0.8 mg/dLNormal0.2-1.3 [facility] on above:Order Comment: Specimen Type: BLOOD SPECIMENOrdering Facility: [facility] Address:[address] [place], [place] [address]Performed By: #### 06487-2, , 2776-04 ####[facility] LABCLIA [id number] AVENUEU.S. NAVAL HOSPITALK [address] [address] [place] AMERICACalcium [Mass/Vol]8.2 mg/dLLow8.5-10.2CTrinity Health [facility] on above:Order Comment: Specimen Type: BLOOD SPECIMENOrdering Facility: [facility] Address:[address] [place], [place] [address]Performed By: #### 48534-1, 97903-7, 2776-04 ####[facility] LABCLIA [id number] [address] [place] [address] [place] AMERICAChloride [Moles/Vol]103 mmol/OFtwvpw73-437 [facility] on above:Order Comment: Specimen Type: BLOOD SPECIMENOrdering Facility: [facility] Address:[address] [place], [place] [address]Performed By: #### 30148-4, , 2776-04 ####[facility] LABCLIA [id number] [address] [place] AMERICACO2 [Moles/Vol]23 mmol/WZnzyze66-62HchccggwxAvita [facility] on above:Order Comment: Specimen Type: BLOOD SPECIMENOrdering Facility: [facility] Address:[address] [place], [place] [address]Performed By: #### 58268-8, , 2776-04 ####[facility] LABCLIA [id number] [address] [place] AMERICACreatinine [Mass/Vol]0.64 mg/dLLow0.73-1.22 [facility] on above:Order Comment: Specimen Type: BLOOD SPECIMENOrdering Facility: [facility] Address:[address] [place], [place] [address]Performed By: #### 26751-3, 51021-7, 2776-04 ####[facility] LABIA [id number] [address] [address] [place] AMERICAeGFRcr SerPlBld CKD-EPI 1230593 mL/min/1.73m??? Normal>=60[facility] on above:Order Comment: Specimen Type: BLOOD SPECIMENOrdering Facility: [facility] Address:[address] [place], [place] [address]Mbhjtx Comment: Estimated Glomerular Filtration Rate (eGFR) is calculated using the 2020 CKD-EPI creatinine equation. This equation utilizes serum creatinine, sex, and age as parameters. The creatinine assay has traceable calibration to isotope dilution-mass spectrometry. Refer to KDIGO guidelines for clinical interpretation. In patients with unstable renal function, e.g. those with acute kidney injury, the eGFR may not accurately reflect actual GFR.Performed By: #### 97437-4, , 2776-04 ####[facility] LABCLIA [id number] [address] [place] AMERICAGlucose [Mass/Vol]137 mg/xNQbuz32-66BvtfnkbkfAvita Health System [facility] on above:Order Comment: Specimen Type: BLOOD SPECIMENOrdering Facility: [facility] Address:[address] [place] [address]Mmyzax Comment: The [place] Diabetes Association (ADA) provides guidance for cutoff [...] Standards of Medical Care in Diabetes 2016, [place] [employer]. Diabetes Care. 2016.39(Suppl 1).Performed By: #### 20047- 8, , 2776-04 ####[facility] LABIA [id number] [address] [place] AMERICAPotassium [Moles/Vol] 3.6 mmol/LLow3.7-5.1CTrinity Health System [facility] on above:Order Comment: Specimen Type: BLOOD SPECIMENOrdering Facility: [facility] Address:[address] [place] [address]Performed By: #### 79709-3, 29748-6, 2777-1 ####[facility] LABIA [id number] [address] [place] AMERICAProtein [Mass/Vol]4.9 g/dLLow 6.3-8.0[facility] on above:Order Comment: Specimen Type: BLOOD SPECIMENOrdering Facility: [facility] Address:[address] [place], [place] [address]Performed By: #### 06046-0, 31947-8, 2777- ####[facility] LABIA [id number] VIL[place] [address] [place] AMERICASodium [Moles/Vol]137 mmol/L Bhbeht341-426UobexgroxAvita Health System [facility] on above:Order Comment: Specimen Type: BLOOD SPECIMENOrdering Facility: [facility] Address:[address] [place], [place] [address]Performed By: #### 87198-7, 81129-3, 2777- ####[facility] LABGRACE [facility] [id number] VILLE [address] [place] AMERICAUrea nitrogen [Mass/Vol]17 mg/dL Normal9-24[facility] on above:Order Comment: Specimen Type: BLOOD SPECIMENOrdering Facility: [facility] Address:[address] [place], [place] [address]Performed By: #### 39281-7, 56833-6, 2777- ####[facility] LABGRACE [facility]OTT[facility] [id number] [address] [place] AMERICAMagnesium SerPl-mCncon 01-04-2025 Magnesium [Mass/Vol]1.8 mg/dLNormal1.7-2.3CTrinity Health [facility] on above:Order Comment: Specimen Type: BLOOD SPECIMENOrdering Facility: [facility] Address:[address] [place], [place] [address]Performed By: #### 08802-9, 37560-0, 2777-1 ####[facility] [id number] VIL[place] [address] [place] Phosphate SerPl-[facility] Pittsburghon 06-60-7836Opwznttmr [Mass/Vol]3.8 mg/dLNormal2.7-4.8 [facility] on above:Order Comment: Specimen Type: BLOOD SPECIMENOrdering Facility: [facility] Address:[address] [place] [address]Hxnosynre By: #### 81863-8, 71343-9, 2777-1 ####[facility] [id number] [place]IL[place] [address] CITIZENS BAPTISTTacrolimus Bld-[facility] 72-57-2592Exixpmkmdl (Bld) [Mass/Vol]7.3 ng/mLNormal5.0-20.0[facility] on above: Order Comment: Specimen Type: BLOOD SPECIMENOrdering Facility: [facility] Address:[address] [place], [place] [address]Result Comment: Individualized target levels for a given [...] situation. Test performed by chemiluminescent immunoassay using Pairin Alinity i.Performed By: #### 15759-3 ####[facility] [id number] [place] [address] [place] AMERICACASE MANAGEMon 45-94-0439ABZF MANAGEMNormalParkwood Hospital W Auto Differential panel (Bld)on 42-18-3766Dubtccaql (Bld) [#/Vol] 0.11 10*3/uLHigh<0.11CTrinity Health [facility] on above:Order Comment: Specimen Type: BLOOD SPECIMENOrdering Facility: [facility] Address:[address] [place], [place] [address]Performed By: #### 67633-3 ####[facility] LABCLIA [id number] [place] [address] [place] AMERICABasophils/100 WBC (Bld)0.9 % NormalAvita Health System [facility] on above:Order Comment: Specimen Type: BLOOD SPECIMENOrdering Facility: [facility] Address:[address] [place], [place] [address]Performed By: #### 68543-2 ####[facility] LABCLIA [id number] [place] [address] [place] AMERICAEosinophils (Bld) [#/Vol]0.00 10*3/uLNormal<0.46[facility] on above:Order Comment: Specimen Type: BLOOD SPECIMENOrdering Facility: [facility] Address:[address] [place], [place] [address]Performed By: #### 48063-0 ####[facility] LABCLIA [id number] [place] [address] [place] AMERICAEosinophils/100 WBC (Bld)0.0 %NormalAvita Health System [facility] on above:Order Comment: Specimen Type: BLOOD SPECIMENOrdering Facility: [facility] Address:[address] [place], [place] [address]Performed By: #### 19373-8 ####[facility] LABCLIA [id number] [place] [address] [place] AMERICAHematocrit (Bld) [Volume fraction]28.9 %Low39.0-51.0[facility] on above: Order Comment: Specimen Type: BLOOD SPECIMENOrdering Facility: [facility] Address:[address] [place], [place] [address]Performed By: #### 73995- 8 ####[facility] LABCLIA [id number] [place] [address] [place] AMERICAHemoglobin (Bld) [Mass/Vol]9.4 g/dLLow13.0-17.0[facility] on above:Order Comment: Specimen Type: BLOOD SPECIMENOrdering Facility: [facility] Address:[address] [place], [place] [address]Performed By: #### 17699-0 ####[facility] LABIA [id number] [place] [address] [place] SY[facility]ORE MEDICAL CENTERLymphocytes (Bld) [#/Vol]1.03 10*3/uLNormal1.00-4.00[facility] on above:Order Comment: Specimen Type: BLOOD SPECIMENOrdering Facility: [facility] Address:[address] [place], [place] [address]Performed By: #### 65665-5 ####[facility] [id number] [place] [address] [place] SYCAMORE MEDICAL CENTERLymphocytes/100 WBC (Bld)8.7 % NormalAvita Health System [facility] on above:Order Comment: Specimen Type: BLOOD SPECIMENOrdering Facility: [facility] Address:[address] [place], [place] [address]Performed By: #### 57257-8 ####[facility] [id number] [place] [address] [place] AMERICAMCH (RBC) [Entitic mass]30.9 miAwuzad10.0-34.0[facility] on above:Order Comment: Specimen Type: BLOOD SPECIMENOrdering Facility: [facility] Address:[address] [place], [place] [address]Performed By: #### 76218-9 ####[facility] LABIA [id number] [place] [id number] [place] MCV (RBC) [Entitic vol]95.1 lEChvgxt36.0-100.0[facility] on above:Order Comment: Specimen Type: BLOOD SPECIMENOrdering Facility: [facility] Address:[address] [place] [address] Performed By: #### [id number] ####[facility] LABCLIA [id number] [place] [address] [place] Metamyelocytes/100 WBC (Bld)7.8 %NormalAv[facility] on above:Order Comment: Specimen Type: BLOOD SPECIMENOrdering Facility: [facility] Address:[address] [place], [place] [address]Performed By: #### 55277-3 ####[facility] LABIA [id number] [place] [address] [place] AMERICAMonocytes (Bld) [#/Vol]0.92 10*3/uLHigh<0.87[facility] on above:Order Comment: Specimen Type: BLOOD SPECIMENOrdering Facility: [facility] Address:[address] [place], [place] [address]Performed By: #### 82459- 8 ####[facility] LABCLIA [id number] [place] [address] [place] AMERICAMonocytes/100 WBC (Bld)7.8 % NormalAv[facility] on above:Order Comment: Specimen Type: BLOOD SPECIMENOrdering Facility: [facility] Address:[address] [place], [place] [address]Performed By: #### 76881-0 ####[facility] LABIA [id number] [place] [address] [place] AMERICANeutrophils (Bld) [#/Vol]8.34 10*3/uLHigh1.45-7.50[facility] on above:Order Comment: Specimen Type: BLOOD SPECIMENOrdering Facility: [facility] Address:[address] [place], [place] [address]Performed By: #### 98855-7 ####[facility] LABCLIA [id number] [address] [place] [address] [place] [facility]OSPITALeutrophils/100 WBC (Bld)70.5 %NormalAvita Health System Bucyrus Hospital on above:Order Comment: Specimen Type: BLOOD SPECIMENOrdering Facility: [facility] Address:[address] [place] [address] Performed By: #### 74223-9 ####[facility] LABCLIA [id number] [address], [facility]95 [place] Nucleated RBC (Bld) [#/Vol]10*3/uLNormal<0.01[facility] on above:Order Comment: Specimen Type: BLOOD SPECIMENOrdering Facility: [facility] Address:[address] [place] [address] Performed By: #### 17735-1 ####[facility] LABIA [id number] [place] [address] [place] Platelets (Bld) [#/Vol]257 10*3/gYVckjaz416-647ZffsmcuydAvita Health System Bucyrus Hospital on above:Order Comment: Specimen Type: BLOOD SPECIMENOrdering Facility: [facility] Address:[address] [place] [address] Performed By: #### 24020-3 ####[facility] LABIA [id number] [address], [place] [address] [place] RBC (Bld) [#/Vol]3.04 10*6/uLLow4.20-6.00[facility] on above:Order Comment: Specimen Type: BLOOD SPECIMENOrdering Facility: [facility] Address:[address] [place], [place] [address]Performed By: #### 45595-8 ####[facility] LABCLIA [id number] [address], [facility]95 [place] AMERICACRP SerPl-mCncon 91-43-9901QYS [Mass/Vol]26.9 mg/dLHigh<0.9CTrinity Health System [facility] on above:Order Comment: Specimen Type: BLOOD SPECIMENOrdering Facility: [facility] Address:[address] [place], [place] [address]Performed By: #### 74705-1, 63700-6, 2776-04, 1987-08, ####[facility] LABCLIA [id number] [place] [address] [place] OF AMERICAComprehensive metabolic 2000 panelon 21-54-0859Bnurwli [Mass/Vol]2.5 g/dLLow3.9-4.9ClevelFostoria City Hospital on above:Order Comment: Specimen Type: BLOOD SPECIMENOrdering Facility: [facility] Address:[address] [place], [place] [address]Performed By: #### 32251-1, 53821-5, 2776-04, 1987-08, ####[facility] LABCLIA [id number] [place] [address] [place] AMERICAALP [Catalytic activity/Vol]252 U/SPrjm55-172CinqkxcxwAvita Health System Bucyrus Hospital on above:Order Comment: Specimen Type: BLOOD SPECIMENOrdering Facility: [facility] Address:[address] [place], [place] [address]Performed By: #### 51117- 8, 65085-2, 2776-04, 1987-08, ####[facility] LABCLIA [id number] [place] [address] [place] ALT [Catalytic activity/Vol]32 U/WXbbnig80-24XlsmzobcsAvita Health System Bucy[facility] Hospital on above:Order Comment: Specimen Type: BLOOD SPECIMENOrdering Facility: [facility] Address:[address] [place] [address] Performed By: #### 41847-7, 25290-4, 2776-04, 1987-08, ####[facility] LABCLIA [id number] [address] [address] [place] AMERICAAnion gap [Moles/Vol]10 mmol/LNormal8-15[facility] on above:Order Comment: Specimen Type: BLOOD SPECIMENOrdering Facility: [facility] Address:[address] [place], [place] [address]Performed By: #### 45761-4, 38039-4, 2776-04, 1987-08, ####[facility] LABIA [id number] [place] [address] [place] AMERICAAST [Catalytic activity/Vol]41 U/KOskx82-22EaxrawfytAvita Health System Bucyrus Hospital on above:Order Comment: Specimen Type: BLOOD SPECIMENOrdering Facility: [facility] Address:[address] [place], [place] [address]Performed By: #### 58390-0, 84367-7, 2776-04, 1987-08, ####[facility] SYSTEMIA [id number] [address] [address] [place] AMERICABilirubin [Mass/Vol] 0.3 mg/dLNormal0.2-1.3ClevelFostoria City Hospital on above:Order Comment: Specimen Type: BLOOD SPECIMENOrdering Facility: [facility] Address:[address] [place], [place] [address]Performed By: #### 55752-0, 46240-6, 2776-04, 1987-08, ####[facility] LABIA [id number] [address] [address] [place] AMERICACalcium [Mass/Vol]8.4 mg/dLLow8.5-10.2ClevelFostoria City Hospital on above:Order Comment: Specimen Type: BLOOD SPECIMENOrdering Facility: [facility] Address:[address] [place], [place] [address]Performed By: #### 57709- 8, 45715-9, 2776-04, 1987-08, ####[facility] LABIA [id number] [address] [address] [place] Chloride [Moles/Vol]102 mmol/KVgevgi51-668KqdosoxepMercy Health St. Vincent Medical CenterComment on above:Order Comment: Specimen Type: BLOOD SPECIMENOrdering Facility: [facility] Address:[address] [place], [place] [address]Performed By: #### 89681-4, 22746-4, 2776-04, 1987-08, ####[facility] LABIA [id number] [address] [address] [place] AMERICACO2 [Moles/Vol]27 mmol/XXkunqk67-73BrimhkccpMercy Health St. Vincent Medical CenterComsheridan community hospital on above:Order Comment: Specimen Type: BLOOD SPECIMENOrdering Facility: [facility] Address:[address] [place], [place] [address]Performed By: #### 71779-1, 51126-4, 2776-04, 1987-08, ####[facility] [id number] [address] [address] [place] AMERICACreatinine [Mass/Vol]0.67 mg/dLLow0.73-1.22[facility] Comment on above:Order Comment: Specimen Type: BLOOD SPECIMENOrdering Facility: [facility] Address:[address] [place], [place] [address] Performed By: #### 25457-7, 55857-6, 2776-04, 1987-08, ####[facility]ITA HEALTH SYSTEMIA [id number] [address] [address] [place] AMERICAGlucose [Mass/Vol]122 mg/fWAece52-12QyxoprbaiAvita Health System Bucyrus Hospital on above:Order Comment: Specimen Type: BLOOD SPECIMENOrdering Facility: [facility] Address:[address] [place], [place] [address]Result Comment: The [place] Diabetes Association (ADA) provides guidance for cutoff [...] Standards of Medical Care in Diabetes 2016, [place] [employer]. Diabetes Care. 2016.39(Suppl 1).Performed By: #### 51538- 8, 26758-0, 2776-04, 1987-08, ####[facility] LABIA [id number] [place] [address] [place] Potassium [Moles/Vol]4.2 mmol/LNormal3.7-5.1CTuscarawas HospitalComment on above:Order Comment: Specimen Type: BLOOD SPECIMENOrdering Facility: [facility] Address:[address] [place], [place] [address]Performed By: #### 79817-0, 23566-2, 2776-04, 1987-08, ####[facility] [id number] [place] [address] [place] AMERICAProtein [Mass/Vol]5.3 g/dLLow6.3-8.0Mercy Health St. Vincent Medical CenterComment on above:Order Comment: Specimen Type: BLOOD SPECIMENOrdering Facility: [facility] Address:[address] [place], [place] [address]Performed By: #### 80681-1, 85652-1, 2776-04, 1987-08, ####[facility] [id number] [place] [id number] [place] AMERICASodium [Moles/Vol]139 mmol/DTerxvg746-654NtzooaocxMercy Health St. [facility] Center Comment on above:Order Comment: Specimen Type: BLOOD SPECIMENOrdering Facility: [facility] Address:[address] [place] [address] Performed By: #### 40288-7, 14818-1, 2776-04, 1987-08, ####[facility] LABCLIA [id number] [place] [address] [place] AMERICAUrea nitrogen [Mass/Vol]19 mg/dLNormal9-24 [facility] on above:Order Comment: Specimen Type: BLOOD SPECIMENOrdering Facility: [facility] Address:[address] [place], [place] [address]Performed By: #### 07074-0, 01584-8, 2776-04, 1987-08, ####[facility] LABIA [id number] [place] [address] [place] AMERICAMagnesium SerPl-mCncon 01-03-2025 Magnesium [Mass/Vol]1.8 mg/dLNormal1.7-2.3CTrinity Health System East Campus on above:Order Comment: Specimen Type: BLOOD SPECIMENOrdering Facility: [facility] Address:[address] [place], [place] [address]Performed By: #### 78159-9 ####[facility] LABIA [id number] [place] [address] [place] AMERICAMagnesium [Mass/Vol] 1.5 mg/dLLow1.7-2.3CTrinity Health System East Campus on above:Order Comment: Specimen Type: BLOOD SPECIMENOrdering Facility: [facility] Address:[address] [place], [place] [address]Performed By: #### 62412-0, 79862-6, 2776-04, 1987-08, 15814-0 ####[facility] LABIA [id number] [place] [address] [place] AMERICAPhosphate SerPl-mCncon 58-23-0753Gcamhzghf [Mass/Vol]3.5 mg/dLNormal2.7-4.8CTuscarawas HospitalComment on above:Order Comment: Specimen Type: BLOOD SPECIMENOrdering Facility: [facility] Address:[address] [place], [place] [address]Performed By: #### 18068-0, 58385-9, 2777-1, 1988-5, 08620-7 ####[facility] LABCLIA [id number] [place] [address] [place] [facility] HOSPITALTacrolimus Bld-mCncon 01-03-2025 Tacrolimus (Bld) [Mass/Vol]6.4 ng/mLNormal5.0-20.0[facility] Comment on above:Order Comment: Specimen Type: BLOOD SPECIMENOrdering Facility: [facility] Address:[address] [place], [place] [address]Result Comment: Individualized target levels for a given [...] immunoassay using Lakhani Alinity i.Performed By: #### 32850-8 ####[facility] LABCLIA [id number] [place] [address] 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 Ordering physician: KAYLEN RIVERA Exam indication: Evaluation [...] * * Final * * * CC [employer] : [id number]^SyngoDynamics^SI^SUIDCCF Radiology, Radiologist, MD - 01/02/2025 Echocardiography Report: Transthoracic Echo [facility] Bedside Date of service: 01/02/2025 8:55:11 AM SALES REPRESENTATIVE Ordering physician: KAYLEN RIVERA Exam indication: Evaluation [...] * * * Final * * * [employer] : [id number]^SyngoDynamics^SI^CELESTE ID [facility] HospitalRadiology Study observation (narrative)NOMS HealthcareECHOOrdered By: Radiologist Radiology on 02-76-4365OZLU Healthcare Work Phone: No Panel Informationon [id number] BACTERIA BLD CULT CULTURE, BLOOD: No growth 5 days NOM HealthcareOriginal Ordering Provider: OTTO TAMMYBayhealth Hospital, [facility] BACTERIA FLD CULTon [id number] BACTERIA FLD CULT CULTURE, BODY FLD: No growth NOMS HealthcareCCF BACTERIA FLD CULT GRAM STAIN: No organisms seen NOMS HealthcareCC BACTERIA FLD CULTNo Polymorphonuclear LeukocytesNOMS HealthcareCCF BACTERIA FLD CULTRare Mononuclear cellsNOMS HealthcareCCF BACTERIA FLD CULTFew Red Blood CellsNOMS HealthcareCC BACTERIA FLD CULTGram stain performed on cytospun specimen.[facility] BACTERIA FLD CULTGram stain from primary specimenGeneral Leonard Wood Army Community HospitalOriginal Ordering Provider: OTTO GALLEGOS [facility] CYTOLOGY NON-GYNon 48-14-6624FW DISCLAIMERNOMS HealthcareComment on above:Laboratory Developed Test (LDT) Disclaimer: Performance characteristics of immunohistochemical, immunofluorescent, and chromogenic in-situ hybridization tests have been determined by the performing laboratory within the [facility] Department of Pathology and Laboratory Medicine ([facility], [facility], [facility], [facility], [facility], [facility], or [facility]) in a manner consistent with CLIA requirements. One or more of these tests may not have been cleared or approved by the FDA. The [facility] Department of Pathology and Laboratory Medicineis regulated under CLIA as qualified to perform high-complexity testing. These tests are used for clinical purposes. These should not be regarded as investigational or for research. Positive and negative controls stain appropriately. [facility] CASE REPORTNOMS HealthcareComment on above:Medical Cytology Report Case: [id number] Authorizing Provider: Burton Quezada MD Collected: 12/23/2024 11:44 AM Ordering Location: [place] [address] Received: 12/23/2024 06:15 PM Pathologist: Belén Green MD Specimen: Peritoneal Cavity [facility] CLINICAL HISTORYNOMS HealthcareComment on above:Pre-op diagnosis: Abdominal fluid collection [R18.8] [facility] FINAL DIAGNOSISNOMS HealthcareComment on above:A. Peritoneal Cavity, Fluid: Negative for malignant cells. Chronic inflammation. The following cell blocks were associated with this case: A1 Cell Block, Alcohol Fixed at 1601 EDT [facility] FINAL PERFORMING LABNOSD HealthcareComment on above:Technical component, aquatic laborer screening performed at: [facility], [address] [place] [address] CLIA: [id number] Diagnostic interpretation performed at: [facility], [address] [place] [address] CLIA# [id number] [employer] Professor: Emmett New MD [facility] GROSS DESCRIPTIONNOMS HealthcareComment on above:A. Peritoneal Cavity 30 cc cloudy light yellow fluid . ThinPrep and Cell Block prepared. [facility] ORDER COMMENTNOSD HealthcareComment on above:Pre-op diagnosis: Abdominal fluid collection [R18.8] Specimen Type: SPECIMEN OBTAINED BY ASPIRATION [facility] Address: [address] [place] [address] Original Ordering Provider: BURTON BOYER HealthcareCCF BACTERIA SPEC RESP CULTon [id number] BACTERIA SPEC RESP CULTORGANISM ID: 1AbnormalNOFreeman Health SystemF BACTERIA SPEC RESP CULTFew normal respiratory floraNOFreeman Health SystemF BACTERIA SPEC RESP CULT GRAM STAIN: No organisms seen AbnormalNOMadison Medical CenterCCF BACTERIA SPEC RESP CULTRare Polymorphonuclear leukocytesAbnormalNOMS HealthcareInterpretation and review of laboratory results AbnormalNOMS HealthcareOriginal Ordering Provider: OTTO RUIZMid Missouri Mental Health CenterF BACTERIA BLD CULTon [id number] BACTERIA BLD CULTORGANISM ID: 1 AbnormalNOSD HealthcareF BACTERIA BLD CULTEnterococcus faecalisNOTwo Rivers Psychiatric HospitalF BACTERIA BLD CULTRefer to specimen collected on 12/14/24 at 1430 ([id number])NOM HealthcareCCF BACTERIA BLD CULTNOSD HealthcareCCF BACTERIA BLD CULTCephalosporins, clindamycin, and TMP-SMX are not effective for the treatment of enterococcal infections.NOMS [facility] CenterF BACTERIA BLD CULT GRAM STAIN: Gram positive cocci in pairs and chains AbnormalNOMS HealthcareInterpretation and review of laboratory resultsAbnormal [facility] HealthcareOriginal Ordering Provider: GAY HICKEY HealthcareCCF BACTERIA BLD CULTORGANISM ID: 1AbnormalNOMS HealthcareCCF BACTERIA BLD CULTEnterococcus faecalisNOMS HealthcareCCF BACTERIA BLD CULTRefer to specimen collected on 12/14/24 at 1430 ([id number])NOMS HealthcareCCF BACTERIA BLD CULTNOMS HealthcareCCF BACTERIA BLD CULTCephalosporins, clindamycin, and TMP-SMX are not effective for the treatment of enterococcal infections.NOMS HealthcareCCF BACTERIA BLD CULT GRAM STAIN: Gram positive cocci in pairs and chains AbnormalNOMS HealthcareInterpretation and review of laboratory resultsAbnormal [facility] HealthcareOriginal Ordering Provider: GAY HICKEY HealthcareCCF BACTERIA FLD CULTon [id number] BACTERIA FLD CULT CULTURE, BODY FLD: No growth NOMS HealthcareCCF BACTERIA FLD CULT GRAM STAIN: No organisms seen NOMS HealthcareCCF BACTERIA FLD CULTFew Polymorphonuclear leukocytesNOMS HealthcareCCF BACTERIA FLD CULTGram stain performed on cytospun specimen.NOMS HealthcareCCF BACTERIA FLD CULTGram stain from primary specimenHEBER VALLEY MEDICAL [facility]ENTER HealthcareOriginal Ordering Provider: GAY HICKEY HealthcareCCF RESP PATH 12B PNL SPEC JESSICA+PROBEon [id number] RESP PATH 12B PNL SPEC JESSICA+PROBE INFLUENZA [...] JESSICA+PROBE BORDETELLA PARAPERTUSSIS DNA: Not detected NOMS NwesmitpzqWZHJ-FbO-8 (COVID-19) RNA JESSICA+probe Ql (Unsp spec) SARS-COV-2 (AGENT OF COVID-19) RNA: Not detected NOMS HealthcareOriginal Ordering Provider: GEORGI CHAVEZ [facility] ECG 12 leadon 91-44-0318Gevslitezqq Rate : 88 BPM Atrial Rate : 88 BPM P-R Interval : 134 ms QRS Duration : 80 ms Q-T Interval : 386 ms QTC Calculation(Bazett) : 467 ms Calculated P [place] : 21 degrees Calculated R [place] : 26 degrees Calculated T [place] : 25 degrees NORMAL SINUS RHYTHM LOW VOLTAGE QRS, CONSIDER PULMONARY DISEASE, PERICARDIAL EFFUSION, OR NORMAL VARIANT BORDERLINE ECG Confirmed by ABENA URENA MD ([id number]) on 12/06/2024 1:51:49 PM NAME : LOYD BLANDON PID : [id number] : 1955 Gender : Male Race : ORD : [id number] Procedure Date : Oct 14 2024 12:20:29 [...] QTC Calculation(Bazett) : 467 ms Calculated P [place] : 21 degrees Calculated R [place] : 26 degrees Calculated T [place] : 25 degrees NORMAL SINUS RHYTHM LOW VOLTAGE QRS, CONSIDER PULMONARY DISEASE, PERICARDIAL EFFUSION, OR NORMAL VARIANT BORDERLINE ECG Confirmed by ABENA URENA MD ([id number]) on 12/06/2024 1:51:49 PM NAME : LOYD BLANDON PID : [id number] : 1955 Gender : Male Race : ORD : [id number] Procedure Date : Oct 14 2024 12:20:29 [...] CANDIDA DIAS Acquired by : SHUN ROSA [facility] HealthcareECG 12 leadOrdered By: Radiologist Radiology on 60-63-4176SIHW Healthcare Work Phone: ECG 12 leadon 24-70-9802Rmwfeqxgige Rate : 76 BPM Atrial Rate : 76 BPM P-R Interval : 138 ms QRS Duration : 84 ms Q-T Interval : 404 ms QTC Calculation(Bazett) : 454 ms Calculated P [place] : 37 degrees Calculated R [place] : 53 degrees Calculated T [place] : 41 degrees SINUS RHYTHM WITH OCCASIONAL PREMATURE VENTRICULAR COMPLEXES OTHERWISE NORMAL ECG Confirmed by MD CHARLIE, HEBA ([id number]) on 12/02/2024 1:58:43 PM NAME : LOYD BLANDON PID : [id number] : 1955 Gender : Male Race : ORD : [id number] Procedure Date : Oct 14 2024 20:58:05 Edit Date : Dec 02 2024 13:58:51 Diagnosis: SINUS RHYTHM WITH OCCASIONAL PREMATURE VENTRICULAR COMPLEXES OTHERWISE NORMAL ECG Confirmed by MD GUERRA HEBA ([id number]) on 12/02/2024 1:58:43 PM Test Reason : [...] QTC Calculation(Bazett) : 454 ms Calculated P [place] : 37 degrees Calculated R [place] : 53 degrees Calculated T [place] : 41 degrees SINUS RHYTHM WITH OCCASIONAL PREMATURE VENTRICULAR COMPLEXES OTHERWISE NORMAL ECG Confirmed by MD GUERRA HEBA ([id number]) on 12/02/2024 1:58:43 PM NAME : LOYD BLANDON PID : [id number] : 1955 Gender : Male Race : ORD : [id number] Procedure Date : Oct 14 2024 20:58:05 Edit Date : Dec 02 2024 13:58:51 Diagnosis: SINUS RHYTHM WITH OCCASIONAL PREMATURE VENTRICULAR COMPLEXES OTHERWISE NORMAL ECG Confirmed by MD GUERRA HEBA ([id number]) on 12/02/2024 1:58:43 PM Test Reason : Chest Pain Location : 97 : G90 G090-24 Overread By : MD GUERRA HEBA Edited By : MD GUERRA HEBA Referred By : CANDIDA DIAS Acquired by : PARAMJIT RICH [facility] 12 leadOrdered By: Radiologist Radiology on 00-28-9817KLZE Healthcare Work Phone: cCF BACTERIA WND CULTon [id number] BACTERIA WND CULT CULTURE, WOUND: No growth NOMS HealthcareCCF BACTERIA WND CULT GRAM STAIN: No organisms seen NOMS HealthcareCC BACTERIA WND CULTRare Polymorphonuclear leukocytesNOMS HealthcareOriginal Ordering Provider: MIGUEL CORRAL HealthcareNo Panel Informationon [id number] BACTERIA BLD CULT CULTURE, BLOOD: No growth 5 days NOMS HealthcareOriginal Ordering Provider: XUAN CURRAN [facility]EC[facility] 12 leadon 52-05-6130Cgksvqinseg Rate : 74 BPM Atrial Rate : 74 BPM P-R Interval : 130 ms QRS Duration : 76 ms Q-T Interval : 386 ms QTC Calculation(Bazett) : 428 ms Calculated P [place] : 22 degrees Calculated R [place] : 27 degrees Calculated T [place] : 18 degrees NORMAL SINUS RHYTHM LOW VOLTAGE QRS, CONSIDER PULMONARY DISEASE, PERICARDIAL EFFUSION, OR NORMAL VARIANT BORDERLINE ECG Confirmed by IGNACIO PARDO MD ([id number]) on 11/22/2024 1:57:41 PM NAME : LOYD BLANDON PID : [id number] : 1955 Gender : Male Race : ORD : [id number] Procedure Date : Sep 28 2024 11:33:58 Edit Date : Nov 22 2024 13:57:46 Diagnosis: NORMAL SINUS RHYTHM LOW VOLTAGE QRS, CONSIDER PULMONARY DISEASE, PERICARDIAL EFFUSION, OR NORMAL VARIANT BORDERLINE ECG Confirmed by IGNACIO PARDO MD ([id number]) on 11/22/2024 1:57:41 PM Test Reason : TREMORS, BP Location : 86 : [facility] G101-18 Overread By : IGNACIO PARDO MD Edited By : IGNACIO PARDO MD Referred By : , Acquired by : RACHEL PEREZCCFRadiology, Radiologist, - 11/22/2024 Ventricular Rate : 74 BPM Atrial Rate : 74 BPM P-R Interval : 130 ms QRS Duration : 76 ms Q-T Interval : 386 ms QTC Calculation(Bazett) : 428 ms Calculated P [place] : 22 degrees Calculated R [place] : 27 degrees Calculated T [place] : 18 degrees NORMAL SINUS RHYTHM LOW VOLTAGE QRS, CONSIDER PULMONARY DISEASE, PERICARDIAL EFFUSION, OR NORMAL VARIANT BORDERLINE ECG Confirmed by IGNACIO PARDO MD ([id number]) on 11/22/2024 1:57:41 PM NAME : LOYD BLANDON PID : [id number] : 1955 Gender : Male Race : ORD : [id number] Procedure Date : Sep 28 2024 11:33:58 Edit Date : Nov 22 2024 13:57:46 Diagnosis: NORMAL SINUS RHYTHM LOW VOLTAGE QRS, CONSIDER PULMONARY DISEASE, PERICARDIAL EFFUSION, OR NORMAL VARIANT BORDERLINE ECG Confirmed by IGNACIO PARDO MD ([id number]) on 11/22/2024 1:57:41 PM Test Reason : TREMORS, BP Location : 86 : G101 G101-18 Overread By : IGNACIO PARDO MD Edited By : IGNACIO PARDO MD Referred By : , Acquired by : RACHEL PEREZSoutheast [facility] Hospital 12 leadOrdered By: Radiologist Radiology on 64-00-4301BUIWGeneral [facility] Work Phone: Urine Cultureon 37-15-0078Ipaarmyr identified Cx Nom (U)No Growth 2 Days PERFORMED BY: [place] [address] PATHOLOGIST FINISHING POWDER 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 CANDE CUNNINGHAM M.D.NormalSt. Mary'S Medical Center Physician GroupComment on above: Performed By: #### CUU #### [address] Auto Differential panel (Bld)Ordered By: Letitia Conway on 59-63-0756Yazkwgiwkgjt Ql (Bld)PresentCleveland ClinicBasophils (Bld) [#/Vol]0.12 10*3/uLHighNINFHolmes County Joel Pomerene Memorial HospitalBasophils/100 WBC (Bld)5 % [facility] HospitalDifferential cell count method Nom (Bld)ManualClegalion hospital Clinic Eosinophils (Bld) [#/Vol]0.07 10*3/uLNINFOrlando ClinicEosinophils/100 WBC (Bld)3 %[facility] Memorial HospitalErythrocyte distribution width (RBC) [Ratio]19.2 %High 11.5 - 15.0 %Barth ClinicHematocrit (Bld) [Volume fraction]25.4 %Low39.0 - 51.0 %Barth ClinicHemoglobin (Bld) [Mass/Vol]7.8 g/dLLow13.0 - 17.0 g/dL [facility] HospitalInterpretation and review of laboratory resultsAbnormalCleveland ClinicLymphocytes (Bld) [#/Vol]0.42 10*3/uLLowHolmes County Joel Pomerene Memorial HospitalLymphocytes/100 WBC (Bld)17 %[facility] HospitalH (RBC) [Entitic mass]30.4 pg26.0 - 34.0 pg [facility] HospitalHC (RBC) [Mass/Vol]30.7 g/dL30.5 - 36.0 g/dLHolmes County Joel Pomerene Memorial Hospital MCV (RBC) [Entitic vol]98.8 fL80.0 - 100.0 fLCleveland ClinicMeta %5 %Orlando ClinicMonocytes (Bld) [#/Vol]0.05 10*3/uLNINFHolmes County Joel Pomerene Memorial HospitalMonocytes/100 WBC (Bld)2 %[facility] HospitalMyelo %2 %[facility] Memorial HospitalNeutrophils (Bld) [#/Vol]1.62 10*3/uLHolmes County Joel Pomerene Memorial HospitalNeutrophils/100 WBC (Bld)66 %[facility] HospitalNucleated RBC (Bld) [#/Vol]0.02 10*3/uLHighNINFHolmes County Joel Pomerene Memorial HospitalNucleated RBC/100 WBC (Bld) [Ratio]1 %/100 WBCHolmes County Joel Pomerene Memorial HospitalOvalocytes LM Ql (Bld)FewHolmes County Joel Pomerene Memorial Hospital Platelet mean volume (Bld) [Entitic vol]9 fL9.0 - 12.7 fLCThe [facility] Platelets (Bld) [#/Vol]583 10*3/uLHighHolmes County Joel Pomerene Memorial HospitalPlatelets Estimate (Bld) [#/Vol]IncreasedHolmes County Joel Pomerene Memorial HospitalPolychromasia LM Ql (Bld)SlightHolmes County Joel Pomerene Memorial Hospital RBC (Bld) [#/Vol]2.57 10*6/uLLow4.20 - 6.00 m/[facility] HospitalRed Cell Morph Reviewed: see results of individual morphologiesHolmes County Joel Pomerene Memorial HospitalWBC (Bld) [#/Vol]2.45 10*3/uLLowHolmes County Joel Pomerene Memorial HospitalWBC Left Shift Ql (Bld)PresentHolmes County Joel Pomerene Memorial HospitalThis is an appended report. These results have been appended to a previously verified report.[facility], Edwin ShawCCF COMP METAB 2000 PNL SERPLon [id number] AST SERPL-CCNC20 U/L14 - 40 U/LNOMS [facility] BILIRUB SERPL-MCNC0.2 mg/dL0.2 - 1.3 mg/dLFreeman [facility] PROT SERPL-MCNC5.5 g/dLLow6.3 - 8.0 g/dLGeneral Leonard Wood Army Community HospitalEGFRCR SERPLBLD CKD-EPI [id number]- PINFNOMadison Medical CenterComment on above:Estimated Glomerular Filtration Rate [...] GFR. Specimen Type: BLOOD SPECIMEN Ordering Facility: [facility] Address: [address] [address] Original Ordering Provider: SUZE RENAE PHOSPHATE SERPL-MCNCon [id number] PHOSPHATE SERPL-MCNC4.7 mg/dL2.7 - 4.8 mg/dLGeneral Leonard [facility] Army Community Hospital Comprehensive metabolic 2000 panelon [id number] [Catalytic activity/Vol]20 U/L14 - 40 U/LCleveland ClinicBilirubin [Mass/Vol]0.2 mg/dL0.2 - 1.3 mg/dL [facility] HospitalGFR/1.73 sq M.predicted among non-blacks MDRD (S/P/Bld) [...] ClinicLaboratory - Chemistry and Chemistry - challengeon 25-59-4535Pofywdw [Mass/Vol]2.9 g/dLLow3.9 - 4.9 g/dLNOMS HealthcareALP [Catalytic activity/Vol]143 U/LHigh38 - 113 U/LNOMS HealthcareALT [Catalytic activity/Vol]11 U/L10 - 54 U/LNOMS HealthcareAnion gap [Moles/Vol]12 mmol/L8 - 15 mmol/LNOMS HealthcareCalcium [Mass/Vol]8.6 mg/dL8.5 - 10.2 mg/dLNOMS HealthcareChloride [Moles/Vol]101 mmol/L98 - 107 mmol/LNOMS HealthcareCO2 [Moles/Vol]22 mmol/L22 - 30 mmol/LNOMS HealthcareCreatinine [Mass/Vol]1.52 mg/dL High0.73 - 1.22 mg/dLNOMS HealthcareGlucose [Mass/Vol]88 mg/dL74 - 99 mg/dLNOSD HealthcareComment on above:The [place] Diabetes Association (ADA) provides guidance for cutoff [...] Standards of Medical Care in Diabetes 2016, [place] [employer]. Diabetes Care. 2016.39(Suppl 1). Magnesium [Mass/Vol]2.1 mg/dL1.7 - 2.3 mg/dLNOSD HealthcarePotassium [Moles/Vol] 5.1 mmol/L3.7 - 5.1 mmol/LNOMS HealthcareSodium [Moles/Vol]135 mmol/PEmw347 - 144 mmol/LNOMS HealthcareUrea nitrogen [Mass/Vol]17 mg/dL9 - 24 mg/dLNOSD HealthcareNo Panel Informationon [id number] and review of laboratory resultsAbnormalNOMS HealthcareInterpretation and review of laboratory resultsNormalCleveland ClinicNOMS HealthcareSpecimen Type: BLOOD SPECIMEN Ordering Facility: [facility] Address: [address] [address] Original Ordering Provider: CAMILA GOMESYNCPATHOLOGIST INTERPRETATION CBC AND DIFFERENTIAL (LAB REFLEX ORDER-NO BILL)on [id number] review Arthur (Unsp spec) [Interp]Reviewed by Marito Mak, [facility] Pathologist Interpretation, CBCDIFNormocytic anemia with slight polychromasia Leukopenia with absolute lymphopenia Thrombocytosis [facility], [facility] ShawPHOSPHORUS INORGANICon 06-38-6036Yvzgvnizr [Mass/Vol]4.7 mg/dL2.7 - 4.8 mg/dLOhioHealth Doctors HospitalTAFF REVIEWon 11-15-2024 ReviewedZW,[facility] CenterC-REACTIVE PROTEINon 11-06-5206YEZ [Mass/Vol]20.7 mg/dLHighNINF - 0.9 mg/dLMercy Health Fairfield HospitalC W Auto Differential panel (Bld)on 77-94-5534Zxnpddbne (Bld) [#/Vol]0.06 10*3/uLNINFHolmes County Joel Pomerene Memorial Hospital Basophils/100 WBC (Bld)2.3 %[facility] HospitalDifferential cell count method Nom (Bld)AutoClevelLouis Stokes Cleveland VA Medical CenterEosinophils (Bld) [#/Vol]NINFCThe [facility] Eosinophils/100 WBC (Bld)0.4 %[facility] HospitalErythrocyte distribution width (RBC) [Ratio]19.1 %High11.5 - 15.0 %[facility] HospitalHematocrit (Bld) [Volume fraction]23.9 %Low39.0 - 51.0 %[facility] HospitalHemoglobin (Bld) [Mass/Vol]7.2 g/dLLow13.0 - 17.0 g/dLHolmes County Joel Pomerene Memorial HospitalImmature granulocytes (Bld) [#/Vol]0.11 10*3/uLHighNINFHolmes County Joel Pomerene Memorial HospitalImmature granulocytes/100 WBC (Bld)4.2 %[facility] HospitalInterpretation and review of laboratory resultsAbnormChildren's Hospital of Columbus Lymphocytes (Bld) [#/Vol]0.41 10*3/uLLowHolmes County Joel Pomerene Memorial HospitalLymphocytes/100 WBC (Bld)15.8 %Marietta Memorial HospitalH (RBC) [Entitic mass]30 pg26.0 - 34.0 pgClevelWestbrook Medical CenterHC (RBC) [Mass/Vol]30.1 g/dLLow30.5 - 36.0 g/dLMarietta Memorial HospitalV (RBC) [Entitic vol]99.6 fL80.0 - 100.0 fLChighland district hospital ClinicMonocytes (Bld) [#/Vol]0.08 10*3/uLNISt. Mary's Medical CenterMonocytes/100 WBC (Bld)3.1 %[facility] Neutrophils (Bld) [#/Vol]1.92 10*3/uLHolmes County Joel Pomerene Memorial HospitalNeutrophils/100 WBC (Bld) 74.2 %[facility] HospitalNucleated RBC (Bld) [#/Vol]0.03 10*3/uLHighNISt. Mary's Medical CenterNucleated RBC/100 WBC (Bld) [Ratio]1.2 %/100 WBCHolmes County Joel Pomerene Memorial HospitalPlatelet mean volume (Bld) [Entitic vol]9.1 fL9.0 - 12.7 fLChighland district hospital ClinicPlatelets (Bld) [#/Vol]507 10*3/uLHighHolmes County Joel Pomerene Memorial HospitalRBC (Bld) [#/Vol]2.4 10*6/uLLow4.20 - 6.00 m/[facility] HospitalWBC (Bld) [#/Vol]2.59 10*3/uLSelect Medical Specialty Hospital - Columbus SouthCCF PHOSPHATE SERPL-MCNCon [id number] PHOSPHATE SERPL-MCNC4.9 mg/dLHigh2.7 - 4.8 mg/dLNOSD HealthcareSpecimen Type: BLOOD SPECIMEN Ordering Facility: [facility] Address: [address] [place] [address] Original Ordering Provider: DAVID MYERSISYNCComprehensive metabolic 2000 panelon 56-42-7495Qvfsjtj [Mass/Vol]2.8 g/dLLow3.9 - 4.9 g/dLOrlando ClinicALP [Catalytic activity/Vol]136 U/LHigh38 - 113 U/LCleveland ClinicALT [Catalytic activity/Vol]12 U/L10 - 54 U/LCleveland ClinicAnion gap [Moles/Vol]10 mmol/L8 - 15 mmol/LCleveland ClinicAST [Catalytic activity/Vol]25 U/L14 - 40 U/LCleveland ClinicBilirubin [Mass/Vol]0.2 mg/dL0.2 - 1.3 mg/dLCleveland ClinicCalcium [Mass/Vol]8.6 mg/dL8.5 - 10.2 mg/dLOrlando ClinicChloride [Moles/Vol]102 mmol/L98 - 107 mmol/LCleveland ClinicCO2 [Moles/Vol]22 mmol/L22 - 30 mmol/L [place] ClinicCreatinine [Mass/Vol]1.4 mg/dLHigh0.73 - 1.22 mg/dLClegalion hospital ClinicGFR/1.73 sq M.predicted among non-blacks MDRD (S/P/Bld) [...] eGFRmay not accurately reflect actual GFR.Glucose [Mass/Vol]113 mg/iWLuit65 - 99 mg/dL [facility] HospitalComment on above:The [place] Diabetes Association (ADA) provides guidance for cutoff [...] Standards of Medical Care in Diabetes 2016, [place] [employer]. Diabetes Care. 2016.39(Suppl 1). Potassium [Moles/Vol]5.9 mmol/LHigh3.7 - 5.1 mmol/LCleveland ClinicProtein [Mass/Vol]5.7 g/dLLow6.3 - 8.0 g/dLOhioHealth Doctors Hospitalodium [Moles/Vol]134 mmol/L Xpn738 - 144 mmol/LCleveland ClinicUrea nitrogen [Mass/Vol]20 mg/dL9 - 24 mg/dL [facility] HospitalGGTon 85-63-7749Emgtn glutamyl transferase [Catalytic activity/Vol]70 U/L10 - 70 U/LCleveland ClinicGamma glutamyl transferase [Catalytic activity/Vol]on 51-10-5460Sbncotkwhwzkca and review of laboratory resultsNormalCleveland [facility] ClinicMAGNESIUMon 19-61-6190Ujlfvlwvl [Mass/Vol]2.1 mg/dL1.7 - 2.3 mg/dLHolmes County Joel Pomerene Memorial HospitalMagnesium [Mass/Vol]on 24-52-6762Wlkaaicphmubpz and review of laboratory resultsNoDayton Osteopathic Hospital NT PRO BNPon 44-86-4770Ytnkxaiubnb peptide.B prohormone N-Terminal [Mass/Vol]543 pg/mLHighNINF - 125 pg/mLClevelLouis Stokes Cleveland VA Medical CenterNatriuretic peptide.B prohormone N- Terminal [Mass/Vol]on 26-24-8269Rjplakoeajybzs and review of laboratory results AbnormalSelect Medical [facility] Rehabilitation Hospital, Edwin ShawNo Panel Informationon 11-14-2024 Interpretation and review of laboratory resultsAbnormalCCommunity Memorial HospitalInterpretation and review of laboratory resultsAbUniversity of Michigan HealthS HealthcarePHOSPHORUS INORGANICon 98-96-6688Kylcvlhsg [Mass/Vol]4.9 mg/dL High2.7 - 4.8 mg/dLHolmes County Joel Pomerene Memorial HospitalTACROLIMUS/FK-506 BLon 83-22-0237Uvivgboqkz (Bld) [Mass/Vol]10.2 ng/mL5.0 - 20.0 ng/mLCleveland ClinicComment [...] situation. Test performed by chemiluminescent immunoassay using Xactly Corpnity i.Tacrolimus (Bld) [Mass/Vol]on 73-25-8534Dgktgdfficsske and review of laboratory resultsNormalCParkwood Hospital 08-34-3850Szyhzjhej, Radiologist, - 11/13/2024 Q3 Patient Name: Loyd Blandon Procedure Date: 11/13/2024 1:11 PM Date of : 1955 Admit Type: Outpatient Age: 69 Gender: Male Note Status: Finalized Attending MD: Jane Correia MD, [id number] Procedure: ERCP Indications: Common bile duct stone(s), [...] administered by the anesthesia team. Findings: A grading clerk film of the abdomen was obtained. Surgical [...] 3 months. Procedure Code(s): --- Professional --- 16422, Endoscopic retrograde cholangiopancreatography (ERCP); with removal of calculi/debris from biliary/pancreatic duct(s) 03277, Endoscopic catheterization of the biliary ductal system, radiological supervision and interpretation Diagnosis Code(s): --- Professional --- Z96.89, Presence of other specified functional implants K80.51, Calculus of bile duct without cholangitis or cholecystitis with obstruction Z09, Encounter for follow-up examination after completed treatment for conditions other than malignant neoplasm Z94.4, Liver transplant status CPT copyright 2020 [place] [employer]. All rights reserved. Attending Participation: I was present and participated during the entire procedure, including non-david portions. Scope In: 2:57:12 PM Scope Out: 3:17:12 PM MD Jane Alexander MD 11/13/2024 3:25:50 PM This report has been signed electronically by Jane Correia MD Number of Addenda: 0 Note Initiated On: 11/13/2024 1:11 PM NOMS HealthcareERCPOrdered By: Radiologist Radiology on [id number] Healthcare Work Phone: ERCP Study observation Narrativeon 85-97-6749Kfvluzkyi ClinicNo Panel Informationon 36-78-1081Dsavwvzrc Study observation (narrative) NOM HealthcareC-REACTIVE PROTEINon 57-93-6605NML [Mass/Vol]16.9 mg/dLHighNINF - 0.9 mg/dLMercy Health Fairfield HospitalC W Auto Differential panel (Bld)on 11-11-2024 Anisocytosis Ql (Bld)PresentCleCleveland Clinic Mercy HospitalBasophils (Bld) [#/Vol]0.13 10*3/uL HighNINFHolmes County Joel Pomerene Memorial HospitalBasophils/100 WBC (Bld)4 %[facility] HospitalDifferential cell count method Nom (Bld)ManualCleCleveland Clinic Mercy HospitalEosinophils (Bld) [#/Vol]0.1 10*3/uLNINFHolmes County Joel Pomerene Memorial HospitalEosinophils/100 WBC (Bld)3 %[facility] Erythrocyte distribution width (RBC) [Ratio]18.6 %High11.5 - 15.0 %[facility] HospitalHematocrit (Bld) [Volume fraction]25.6 %Low39.0 - 51.0 %[facility] Hemoglobin (Bld) [Mass/Vol]8 g/dLLow13.0 - 17.0 g/dLHolmes County [facility] Interpretation and review of laboratory resultsAbnormalCThe [facility] Lymphocytes (Bld) [#/Vol]0.23 10*3/uLLowHolmes County Joel Pomerene Memorial HospitalLymphocytes/100 WBC (Bld)7 %[facility] HospitalMCH (RBC) [Entitic mass]30.8 pg26.0 - 34.0 pgClevelWestbrook Medical CenterHC (RBC) [Mass/Vol]31.3 g/dL30.5 - 36.0 g/dLMarietta Memorial HospitalV (RBC) [Entitic vol]98.5 fL80.0 - 100.0 fLCleveland Bethesda HospitalMeta %3 %[facility] Monocytes (Bld) [#/Vol]0.1 10*3/uLNINFHolmes County Joel Pomerene Memorial HospitalMonocytes/100 WBC (Bld)3 % [facility] HospitalNeutrophils (Bld) [#/Vol]2.58 10*3/uLHolmes County [facility] Hospital Neutrophils/100 WBC (Bld)80 %[facility] HospitalNucleated RBC (Bld) [#/Vol]NINF [facility] HospitalNucleated RBC/100 WBC (Bld) [Ratio]0 %/100 WBCHolmes County Joel Pomerene Memorial Hospital Ovalocytes LM Ql (Bld)FewHolmes County Joel Pomerene Memorial HospitalPlatelet mean volume (Bld) [Entitic vol]9 fL9.0 - 12.7 fLCleveland ClinicPlatelets (Bld) [#/Vol]561 10*3/uLHigh [facility] HospitalPlatelets Estimate (Bld) [#/Vol]IncreasedHolmes County [facility] Polychromasia LM Ql (Bld)SlightHolmes County Joel Pomerene Memorial HospitalRBC (Bld) [#/Vol]2.6 10*6/uLLow 4.20 - 6.00 m/uLHolmes County Joel Pomerene Memorial HospitalRed Cell MorphReviewed: see results of individual morphologiesHolmes County Joel Pomerene Memorial HospitalWBC (Bld) [#/Vol]3.22 10*3/uLLowHolmes County Joel Pomerene Memorial HospitalWBC Left Shift Ql (Bld)PresentHolmes County Joel Pomerene Memorial HospitalThis is an appended report. These results have been appended to a previously verified report.[facility] NT-PROBNP SERPL-NCon 70-83-1655Etopklnvvey peptide B (Bld) [Mass/Vol]453 pg/mLHighNINF - 125 pg/mLNOMS HealthcareSpecimen Type: BLOOD SPECIMEN Ordering Facility: [facility] Address: [address] [address] Original Ordering Provider: DAVID BRAVOCYTOMEGALOVIRUS (CMV) DNA, QUANTITATIVE PCR, PLASMAon [id number] DNA JESSICA+probe Qn (P)Not detectedNot DetectedHolmes County Joel Pomerene Memorial HospitalInterpretation and review of laboratory resultsNormal [facility] CMV is an in vitro nucleic acid amplification test for the quantitation of cytomegalovirus (CMV) DNA in human EDTA plasma. The linear range of the assay is 34.5 to 10,000,000 IU/mL (1.54 - 7.00log IU/mL). The lower limit of detection of the assay is 34.5 IU/mL.[facility] Comprehensive metabolic 2000 panelon [id number] [Mass/Vol]3 g/dLLow3.9 - 4.9 g/dLOrlando ClinicALP [Catalytic activity/Vol]151 U/LHigh38 - 113 U/L Orlando ClinicALT [Catalytic activity/Vol]11 U/L10 - 54 U/LCleveland Clinic Anion gap [Moles/Vol]12 mmol/L8 - 15 mmol/LCleveland ClinicAST [Catalytic activity/Vol]19 U/L14 - 40 U/LCleveland ClinicBilirubin [Mass/Vol]0.3 mg/dL0.2 - 1.3 mg/dLOrlando ClinicCalcium [Mass/Vol]8.8 mg/dL8.5 - 10.2 mg/dLOrlando ClinicChloride [Moles/Vol]100 mmol/L98 - 107 mmol/LCleveland ClinicCO2 [Moles/Vol]24 mmol/L22 - 30 mmol/LCleveland ClinicCreatinine [Mass/Vol]1.52 mg/dLHigh0.73 - 1.22 mg/dLOrlando ClinicGFR/1.73 sq M.predicted among non- blacks MDRD [...] reflect actual GFR.Glucose [Mass/Vol]90 mg/dL74 - 99 mg/dLHolmes County Joel Pomerene Memorial HospitalComment on above:The [place] Diabetes Association (ADA) provides guidance for cutoff [...] Standards of Medical Care in Diabetes 2016, [place] [employer]. Diabetes Care. 2016.39(Suppl 1). Potassium [Moles/Vol]5 mmol/L3.7 - 5.1 mmol/LCleveland ClinicProtein [Mass/Vol] 5.8 g/dLLow6.3 - 8.0 g/dLOrlando ClinicSodium [Moles/Vol]136 mmol/L136 - 144 mmol/LCleveland ClinicUrea nitrogen [Mass/Vol]18 mg/dL9 - 24 mg/dLHolmes County Joel Pomerene Memorial HospitalGGTon 56-36-9099Ufwhp glutamyl transferase [Catalytic activity/Vol]93 U/L High10 - 70 U/LCleveland Bethesda HospitalGamma glutamyl transferase [Catalytic activity/Vol]on 55-96-8582Bikdcgxdtqtiqh and review of laboratory results AbnormalSelect Medical [facility] Rehabilitation Hospital, Edwin ShawMAGNESIUMon 40-40-2255Gevdjeqtj [Mass/Vol]2.2 mg/dL1.7 - 2.3 mg/dLHolmes County Joel Pomerene Memorial HospitalMagnesium [Mass/Vol]on 82-08-1713Rlyouizltiuzjx and review of laboratory resultsNormalCThe [facility] NT PRO BNPon 72-78-4043Cvvxmweszzi peptide.B prohormone N-Terminal [Mass/Vol]453 pg/mLHighNINF - 125 pg/mLCleveland Bethesda HospitalNo Panel Informationon 11-11-2024 [facility] HospitalInterpretation and review of laboratory resultsAbnormalCleveland ClinicInterpretation and review of laboratory resultsAbnormButler Memorial Hospital NOMS HealthcarePHOSPHORUS INORGANICon 27-77-4351Zjqfsavmo [Mass/Vol]3.9 mg/dL2.7 - 4.8 mg/dLHolmes County Joel Pomerene Memorial HospitalPhosphate [Mass/Vol]on 38-21-5152Xuajnvfaoypfll and review of laboratory resultsNormalCuniversity hospitals geauga medical centerand [facility] Marymount HospitalTACROLIMUS/FK- 506 BLOrdered By: Brayan Malloy on 64-46-8799Jraffzcbhp (Bld) [Mass/Vol]11.5 ng/mL5.0 - 20.0 ng/mLCleveland ClinicComment [...] 11-11-2024 Interpretation and review of laboratory resultsNormalCleveland [facility] metabolic 2000 panelon 06-53-5651PNY/1.73 sq M.predicted among non- blacks MDRD (S/P/Bld) [Vol rate/Area]48 mL/min/{1.73_m2}Low- PINFClevelLouis Stokes Cleveland VA Medical CenterComment on above:Estimated Glomerular Filtration Rate [...] actual GFR.CCF BAS METAB 1999 PNL SERPLon 59-66-0214VNIQSW SERPLBLD CKD-EPI [id number]- PINFGeneral Leonard Wood Army Community HospitalComment on above:Estimated Glomerular Filtration Rate (eGFR) [...] actual GFR.Specimen Type: BLOOD SPECIMEN Ordering Facility: [facility] Address: [address] [address] Original Ordering Provider: KELL KHANISYGARRICKCCF PHOSPHATE SERPL-MCNCon [id number] PHOSPHATE SERPL-MCNC4.4 mg/dL2.7 - 4.8 mg/dLGeneral [facility] Laboratory - Chemistry and Chemistry - challengeon 34-69-9811Lbliqrz [Mass/Vol] 3.4 g/dLLow3.9 - 4.9 g/dLNOSD HealthcareAnion gap [Moles/Vol]11 mmol/L8 - 15 mmol/LNOMS HealthcareCalcium [Mass/Vol]9 mg/dL8.5 - 10.2 mg/dLNOMadison Medical Center Chloride [Moles/Vol]97 mmol/LLow98 - 107 mmol/LNOMS HealthcareCO2 [Moles/Vol]27 mmol/L22 - 30 mmol/LNOMS HealthcareCreatinine [Mass/Vol]1.55 mg/dLHigh0.73 - 1.22 mg/dLNOSD HealthcareGlucose [Mass/Vol]92 mg/dL74 - 99 mg/dLNOMadison Medical Center Comment on above:The [place] Diabetes Association (ADA) provides guidance for cutoff [...] Standards of Medical Care in Diabetes 2016, [place] [employer]. Diabetes Care. 2016.39(Suppl 1). Magnesium [Mass/Vol]2.1 mg/dL1.7 - 2.3 mg/dLNOSD HealthcarePotassium [Moles/Vol] 4.6 mmol/L3.7 - 5.1 mmol/LNOMS HealthcareSodium [Moles/Vol]135 mmol/TIwt267 - 144 mmol/LNOMS HealthcareUrea nitrogen [Mass/Vol]17 mg/dL9 - 24 mg/dLNOMadison Medical CenterNo Panel Informationon 93-97-6117Tgopffbghzbnmy and review of laboratory resultsAbnormalNOSD HealthcareInterpretation and review of laboratory resultsNormalCleveland ClinicSpecimen Type: BLOOD SPECIMEN Ordering Facility: [facility] Address: [address] [address] Original Ordering Provider: CAMILA FERNANDEZ [facility] DaytonPHOSPHORUS INORGANICon 29-40-0943Jkwvxpecu [Mass/Vol]4.4 mg/dL2.7 - 4.8 mg/dLPaulding County Hospital-REACTIVE PROTEINon 99-21-5157AHR [Mass/Vol]17.2 mg/dLHighNINF - 0.9 mg/dLMetroHealth Parma [facility] Center W Auto Differential panel (Bld)on 11-07-2024 Anisocytosis Ql (Bld)PresentCleCleveland Clinic Mercy HospitalBasophils (Bld) [#/Vol]0.09 10*3/uL NINFCleveland ClinicBasophils/100 WBC (Bld)3 %[facility] HospitalDifferential cell count method Nom (Bld)ManualCleCleveland Clinic Mercy HospitalEosinophils (Bld) [#/Vol]0.03 10*3/uLNINFHolmes County Joel Pomerene Memorial HospitalEosinophils/100 WBC (Bld)1 %[facility] Erythrocyte distribution width (RBC) [Ratio]17.9 %High11.5 - 15.0 %[facility] HospitalHematocrit (Bld) [Volume fraction]23.7 %Low39.0 - 51.0 %[facility] Hemoglobin (Bld) [Mass/Vol]7.5 g/dLLow13.0 - 17.0 g/dLHolmes County [facility] Interpretation and review of laboratory resultsAbnormalCThe [facility] Lymphocytes (Bld) [#/Vol]0.44 10*3/uLLowHolmes County Joel Pomerene Memorial HospitalLymphocytes/100 WBC (Bld)14 %[facility] Memorial HospitalH (RBC) [Entitic mass]30.2 pg26.0 - 34.0 pgCleveland Meeker Memorial HospitalHC (RBC) [Mass/Vol]31.6 g/dL30.5 - 36.0 g/dLMarietta Memorial HospitalV (RBC) [Entitic vol]95.6 fL80.0 - 100.0 fLCleveland Bethesda HospitalMeta %1 %[facility] Monocytes (Bld) [#/Vol]0.16 10*3/uLNINFHolmes County Joel Pomerene Memorial HospitalMonocytes/100 WBC (Bld)5 %[facility] HospitalNeutrophils (Bld) [#/Vol]2.4 10*3/uLHolmes County [facility] Neutrophils/100 WBC (Bld)76 %[facility] HospitalNucleated RBC (Bld) [#/Vol]NINF [facility] HospitalNucleated RBC/100 WBC (Bld) [Ratio]0 %/100 WBCHolmes County Joel Pomerene [facility] Platelet mean volume (Bld) [Entitic vol]9.3 fL9.0 - 12.7 fLCThe [facility] Platelets (Bld) [#/Vol]580 10*3/uLHighHolmes County Joel Pomerene Memorial HospitalPlatelets Estimate (Bld) [#/Vol]IncreasedCleCleveland Clinic Mercy HospitalRBC (Bld) [#/Vol]2.48 10*6/uLLow4.20 - 6.00 m/uL [facility] HospitalRed Cell MorphReviewed: see results of individual morphologies [facility] HospitalWBC (Bld) [#/Vol]3.16 10*3/uLLowHolmes County Joel Pomerene Memorial HospitalWBC Left Shift Ql (Bld)PresentHolmes County Joel Pomerene Memorial HospitalThis is an appended report. These results have been appended to a previously verified report.[facility] PHOSPHATE SERPL-MCNCon [id number] PHOSPHATE SERPL-MCNC4.6 mg/dL2.7 - 4.8 mg/dLNOMadison Medical CenterSpecimen Type: BLOOD SPECIMEN Ordering Facility: [facility] Address: [address] [place] [address] Original Ordering Provider: DAVID MYERSISYNCComprehensive metabolic 2000 panelon 90-41-5400Bwlcgrh [Mass/Vol]3 g/dLLow3.9 - 4.9 g/dLOrlando ClinicALP [Catalytic activity/Vol]156 U/LHigh38 - 113 U/LCleveland ClinicALT [Catalytic activity/Vol]12 U/L10 - 54 U/LCleveland ClinicAnion gap [Moles/Vol]16 mmol/LHigh 8 - 15 mmol/LCleveland ClinicAST [Catalytic activity/Vol]18 U/L14 - 40 U/L [facility] HospitalBilirubin [Mass/Vol]0.3 mg/dL0.2 - 1.3 mg/dLHolmes County [facility] Calcium [Mass/Vol]8.8 mg/dL8.5 - 10.2 mg/dLOrlando ClinicChloride [Moles/Vol] 96 mmol/LLow98 - 107 mmol/LCleveland ClinicCO2 [Moles/Vol]24 mmol/L22 - 30 mmol/LCleveland ClinicCreatinine [Mass/Vol]1.5 mg/dLHigh0.73 - 1.22 mg/dL [facility] HospitalGFR/1.73 sq M.predicted among non-blacks MDRD (S/P/Bld) [Vol rate/Area]49 mL/min/{1.73_m2}Low- PINFCleveland Bethesda HospitalComment on above:Estimated Glomerular Filtration Rate (eGFR) [...] reflect actual GFR.Glucose [Mass/Vol]77 mg/dL74 - 99 mg/dLHolmes County Joel Pomerene Memorial HospitalComment on above:The [place] Diabetes Association (ADA) provides guidance for cutoff [...] Standards of Medical Care in Diabetes 2016, [place] [employer]. Diabetes Care. 2016.39(Suppl 1). Potassium [Moles/Vol]4.8 mmol/L3.7 - 5.1 mmol/LCleveland ClinicProtein [Mass/Vol]5.4 g/dLLow6.3 - 8.0 g/dLOhioHealth Doctors Hospitalodium [Moles/Vol]136 mmol/L 136 - 144 mmol/LCleveland ClinicUrea nitrogen [Mass/Vol]16 mg/dL9 - 24 mg/dL [facility] HospitalGGTon 08-29-4543Nzafz glutamyl transferase [Catalytic activity/Vol]98 U/LHigh10 - 70 U/LCleveland ClinicGamma glutamyl transferase [Catalytic activity/Vol]on 55-04-6205Xihzmrepsthagi and review of laboratory resultsAbnormalCleveland Cleveland Clinic Marymount HospitalMAGNESIUMon 52-12-7085Wwnvrycte [Mass/Vol]2 mg/dL1.7 - 2.3 mg/dLHolmes County Joel Pomerene Memorial HospitalMagnesium [Mass/Vol]on 23-84-3457Ywkaktqxsxzgiw and review of laboratory resultsNormalCleveland Clinic NT PRO BNPon 14-12-2187Zewmrjotjdc peptide.B prohormone N-Terminal [Mass/Vol]365 pg/mLHighNINF - 125 pg/mLCleveland Bethesda HospitalNatriuretic peptide.B prohormone N- Terminal [Mass/Vol]on 71-75-3635Cnyyivwtfsogvx and review of laboratory results AbnormalCleWestern Reserve HospitalNo Panel Informationon 11-07-2024 Interpretation and review of laboratory resultsAbnormalCleveland [facility] HealthcarePHOSPHORUS INORGANICon 07-55-4551Dnvuhxtit [Mass/Vol]4.6 mg/dL2.7 - 4.8 mg/dLHolmes County Joel Pomerene Memorial HospitalPhosphate [Mass/Vol]on 11-07-2024 Interpretation and review of laboratory resultsNormalCThe [facility] TACROLIMUS/FK-506 BLon 50-81-3751Ttnyulueyu (Bld) [Mass/Vol]8.6 ng/mL5.0 - 20.0 ng/mLCleveland ClinicComment [...] immunoassay using Lakhani Alinity i.Tacrolimus (Bld) [Mass/Vol]on 76-80-1375Rpcluirignxsgs and review of laboratory results NormalSelect Medical [facility]-REACTIVE PROTEINon 87-69-1855KVT [Mass/Vol]20.3 mg/dLHighNINF - 0.9 mg/dLMetroHealth Parma [facility] W Auto Differential panel (Bld)on 77-99-6746Degwimdcxles Ql (Bld)PresentHolmes County Joel Pomerene Memorial HospitalBasophils (Bld) [#/Vol]0.07 10*3/uLNINFHolmes County Joel Pomerene Memorial HospitalBasophils/100 WBC (Bld)2 %[facility] HospitalDifferential cell count method Nom (Bld)ManualCleCleveland Clinic Mercy HospitalEosinophils (Bld) [#/Vol]0.03 10*3/uLNINFHolmes County Joel Pomerene Memorial HospitalEosinophils/100 WBC (Bld)1 % [facility] HospitalErythrocyte distribution width (RBC) [Ratio]17.3 %High11.5 - 15.0 %[facility] HospitalHematocrit (Bld) [Volume fraction]24.5 %Low39.0 - 51.0 % [facility] HospitalHemoglobin (Bld) [Mass/Vol]7.6 g/dLLow13.0 - 17.0 g/dLHolmes County Joel Pomerene Memorial HospitalInterpretation and review of laboratory resultsAbnormalCThe [facility] Hospital Lymphocytes (Bld) [#/Vol]0.5 10*3/uLLowHolmes County Joel Pomerene Memorial HospitalLymphocytes/100 WBC (Bld) 15 %[facility] HospitalH (RBC) [Entitic mass]29.7 pg26.0 - 34.0 pgClevelWestbrook Medical CenterHC (RBC) [Mass/Vol]31 g/dL30.5 - 36.0 g/dLMarietta Memorial HospitalV (RBC) [Entitic vol]95.7 fL80.0 - 100.0 fLCuniversity hospitals geauga medical centerand ClinicMeta %2 %[facility] Monocytes (Bld) [#/Vol]0.23 10*3/uLNISt. Mary's Medical CenterMonocytes/100 WBC (Bld)7 %[facility] HospitalNeutrophils (Bld) [#/Vol]2.42 10*3/uLHolmes County Joel [facility] Hospital Neutrophils/100 WBC (Bld)73 %[facility] HospitalNucleated RBC (Bld) [#/Vol]NINF [facility] HospitalNucleated RBC/100 WBC (Bld) [Ratio]0 %/100 WBCHolmes County Joel [facility]rene [facility] Hospital Ovalocytes LM Ql (Bld)FewHolmes County Joel Pomerene Memorial HospitalPlatelet mean volume (Bld) [Entitic vol]8.9 fLLow9.0 - 12.7 fLCleveland ClinicPlatelets (Bld) [#/Vol]554 10*3/uLHigh [facility] HospitalPlatelets Estimate (Bld) [#/Vol]IncreasedCleCleveland Clinic Mercy HospitalRBC (Bld) [#/Vol]2.56 10*6/uLLow4.20 - 6.00 m/uLHolmes County Joel Pomerene Memorial HospitalRed Cell Morph Reviewed: see results of individual morphologiesHolmes County Joel Pomerene Memorial HospitalWBC (Bld) [#/Vol]3.31 10*3/uLLowAdena Fayette Medical Center Left Shift Ql (Bld)PresentHolmes County Joel Pomerene Memorial HospitalThis is an appended report. These results have been appended to a previously verified report.[facility] ShawCCF BACTERIA SPEC ANAEROBE CULTon [id number] BACTERIA SPEC ANAEROBE CULT CULTURE, ANAEROBE: Negative for anaerobes. NOMS HealthcareOriginal Ordering Provider: ROSALINDA MCKEONSt. Vincent Frank[facility] Hospital [facility] NT-PROBNP SERPL-MCNCon 71-31-2964Dqpajbiamzg peptide B (Bld) [Mass/Vol]444 pg/mLHighNINF - 125 pg/mLNHARPER COUNTY [facility] HealthcareSpecimen Type: BLOOD SPECIMEN Ordering Facility: [facility] Address: [address] [place] [address] Original Ordering Provider: DAVID BRAVOCREATINE KINASE/CKon [id number] [Catalytic activity/Vol]10 U/LLow51 - 298 U/LCleveland Bethesda Hospital CYTOMEGALOVIRUS (CMV) DNA, QUANTITATIVE PCR, PLASMAon 24-93-7291STG DNA JESSICA+probe Qn (P)Not detectedNot DetectedHolmes County Joel Pomerene Memorial HospitalInterpretation and review of laboratory resultsNormalCleveland Cliniccobas CMV is an in vitro nucleic acid amplification test for the quantitation of cytomegalovirus (CMV) DNA in human EDTA plasma. The linear range of the assay is 34.5 to 10,000,000 IU/mL (1.54 - 7.00log IU/mL). The lower limit of detection of the assay is 34.5 IU/mL.[facility] ShawComprehensive metabolic 2000 panelon 04-59-5766Bcwyrhi [Mass/Vol]2.6 g/dLLow3.9 - 4.9 g/dLOrlando ClinicALP [Catalytic activity/Vol]165 U/LHigh38 - 113 U/LCleveland ClinicALT [Catalytic activity/Vol]10 U/L10 - 54 U/LCleveland ClinicAnion gap [Moles/Vol]11 mmol/L8 - 15 mmol/LCleveland ClinicAST [Catalytic activity/Vol]17 U/L14 - 40 U/LCleveland ClinicBilirubin [Mass/Vol]0.3 mg/dL0.2 - 1.3 mg/dLOrlando ClinicCalcium [Mass/Vol]8.5 mg/dL8.5 - 10.2 mg/dLOrlando ClinicChloride [Moles/Vol]98 mmol/L 98 - 107 mmol/LCleveland ClinicCO2 [Moles/Vol]25 mmol/L22 - 30 mmol/LCleveland ClinicCreatinine [Mass/Vol]0.99 mg/dL0.73 - 1.22 mg/dLOrlando ClinicGFR/1.73 sq M.predicted among non-blacks MDRD (S/P/Bld) [...] actual GFR.Glucose [Mass/Vol]88 mg/dL74 - 99 mg/dL [facility] HospitalComment on above:The [place] Diabetes Association (ADA) provides guidance for cutoff [...] Standards of Medical Care in Diabetes 2016, [place] [employer]. Diabetes Care. 2016.39(Suppl 1). Potassium [Moles/Vol]5 mmol/L3.7 - 5.1 mmol/LCleveland ClinicProtein [Mass/Vol] 5.2 g/dLLow6.3 - 8.0 g/dLOrlando ClinicSodium [Moles/Vol]134 mmol/MHlo623 - 144 mmol/LCleveland ClinicUrea nitrogen [Mass/Vol]10 mg/dL9 - 24 mg/dLHolmes County Joel Pomerene Memorial HospitalGGTon 88-30-6017Zkxmo glutamyl transferase [Catalytic activity/Vol]114 U/L High10 - 70 U/LCleveland Bethesda HospitalGamma glutamyl transferase [Catalytic activity/Vol]on 95-06-4456Ytiaoxxhipfbzj and review of laboratory results AbnormalMount St. Mary Hospital ClinicMAGNESIUMon 30-16-3673Tazxmuwfr [Mass/Vol]1.6 mg/dLLow1.7 - 2.3 mg/dLHolmes County Joel Pomerene Memorial HospitalNT PRO BNPon 11-04-2024 Natriuretic peptide.B prohormone N-Terminal [Mass/Vol]444 pg/mLHighNINF - 125 pg/mLCleveland Bethesda HospitalNo Panel Informationon 42-82-9279Kkfhialyecxwpr and review of laboratory resultsAbnormalCleveland [facility] Clinic Marymount HospitalInterpretation and review of laboratory resultsAbnormalNOMS HealthcareNOMS HealthcarePHOSPHORUS INORGANICon 26-91-3822Xtimbmczt [Mass/Vol]4.9 mg/dLHigh2.7 - 4.8 mg/dLHolmes County Joel Pomerene Memorial HospitalPhosphate [Mass/Vol]on 38-47-3224Mnrxredcsdfrio and review of laboratory resultsAbnormalCCommunity Memorial HospitalTACROLIMUS/FK-506 BLOrdered By: Troy Roman on 77-94-1193Jcwlkmkasv (Bld) [Mass/Vol]13.8 ng/mL5.0 - 20.0 ng/mLCleveland ClinicComment [...] i.Tacrolimus (Bld) [Mass/Vol]Ordered By: Troy Roman on 99-53-3454Igqfgmqdxoscgu and review of laboratory resultsNormalCuniversity hospitals geauga medical centerand [facility] Clinic Marymount HospitalCB W Auto Differential panel (Bld)on 41-58-3250Nlyojngonbma Ql (Bld)PresentHolmes County Joel Pomerene Memorial HospitalBasophils (Bld) [#/Vol]0 10*3/uLNINFHolmes County Joel Pomerene Memorial HospitalBasophils/100 WBC (Bld)0 %[facility] HospitalDifferential cell count method Nom (Bld)ManualClegalion hospital ClinicEosinophils (Bld) [#/Vol]0 10*3/uLNINFHolmes County Joel Pomerene Memorial HospitalEosinophils/100 WBC (Bld)0 %[facility] HospitalErythrocyte distribution width (RBC) [Ratio]17.2 %High 11.5 - 15.0 %[facility] HospitalHematocrit (Bld) [Volume fraction]25.9 %Low39.0 - 51.0 %[facility] HospitalHemoglobin (Bld) [Mass/Vol]8.3 g/dLLow13.0 - 17.0 g/dL [facility] HospitalInterpretation and review of laboratory resultsAbnormalCleveland ClinicLymphocytes (Bld) [#/Vol]0.24 10*3/uLLowHolmes County Joel Pomerene Memorial HospitalLymphocytes/100 WBC (Bld)6 %[facility] HospitalH (RBC) [Entitic mass]30 pg26.0 - 34.0 pgClevelWestbrook Medical CenterHC (RBC) [Mass/Vol]32 g/dL30.5 - 36.0 g/dLMarietta Memorial HospitalV (RBC) [Entitic vol]93.5 fL80.0 - 100.0 fLCleveland ClinicMonocytes (Bld) [#/Vol]0.12 10*3/uLNINFHolmes County Joel Pomerene Memorial HospitalMonocytes/100 WBC (Bld)3 %[facility] HospitalNeutrophils (Bld) [#/Vol]3.69 10*3/uLHolmes County Joel Pomerene Memorial HospitalNeutrophils/100 WBC (Bld)91 %[facility] HospitalNucleated RBC (Bld) [#/Vol]NINFCleveland ClinicNucleated RBC/100 WBC (Bld) [Ratio]0 %/100 WBCHolmes County Joel Pomerene Memorial HospitalOvalocytes LM Ql (Bld)FewClegalion hospital ClinicPlatelet mean volume (Bld) [Entitic vol]8.8 fLLow9.0 - 12.7 fLCleveland ClinicPlatelets (Bld) [#/Vol]570 10*3/uLHighClegalion hospital ClinicPlatelets Estimate (Bld) [#/Vol]IncreasedClegalion hospital ClinicRBC (Bld) [#/Vol]2.77 10*6/uLLow4.20 - 6.00 m/[facility] HospitalRed Cell MorphReviewed: see results of individual morphologiesAdena [facility]ayette [facility] Center ([facility]) [#/Vol]4.05 10*3/[facility] HospitalThis is an appended report. These results have been appended to a previously verified report.[facility] RENAL FUNC 2000 PNL SERPLon [id number] PHOSPHATE SERPL-MCNC4.2 mg/dL2.7 - 4.8 mg/dLNOMS HealthcareEGFRCR SERPLBLD CKD-EPI 816849- PINFNOMS HealthcareComment on above:Estimated Glomerular Filtration Rate [...] GFR.Laboratory - Chemistry and Chemistry - challengeon [id number] [Mass/Vol]2.6 g/dLLow3.9 - 4.9 g/dLNOMS HealthcareAnion gap [Moles/Vol]10 mmol/L8 - 15 mmol/LNOMS HealthcareCalcium [Mass/Vol]8.5 mg/dL8.5 - 10.2 mg/dLNOMS HealthcareChloride [Moles/Vol]99 mmol/L 98 - 107 mmol/LNOMS HealthcareCO2 [Moles/Vol]25 mmol/L22 - 30 mmol/LNOMS HealthcareCreatinine [Mass/Vol]0.84 mg/dL0.73 - 1.22 mg/dLNOMS HealthcareGlucose [Mass/Vol]107 mg/eHTmkv80 - 99 mg/dLNOSD HealthcareComment on above:The [place] Diabetes Association (ADA) provides guidance for cutoff [...] Standards of Medical Care in Diabetes 2016, [place] Diabetes [employer]. Diabetes Care. 2016.39(Suppl 1). Magnesium [Mass/Vol]1.5 mg/dLLow1.7 - 2.3 mg/dLNOMS HealthcarePotassium [Moles/Vol]4.7 mmol/L3.7 - 5.1 mmol/LNOMS HealthcareSodium [Moles/Vol]134 mmol/L Wdy760 - 144 mmol/LNOMS HealthcareUrea nitrogen [Mass/Vol]7 mg/dLLow9 - 24 mg/dL NOM HealthcareNo Panel Informationon 38-49-1598Kewqhrsfyrztni and review of laboratory resultsAbnoLancaster General HospitalSpecimen Type: BLOOD SPECIMEN Ordering Facility: [facility] Address: [address] [address] Original Ordering Provider: CAMILA FERNANDEZ [facility] DaytonRenal function 2000 panelon 61-83-1790QZS/1.73 sq M.predicted among non-blacks MDRD (S/P/Bld) [Vol rate/Area]93 mL/min/{1.73_m2}- [facility] Hospitaland ClinicComment on above: Estimated Glomerular Filtration [...] reflect actual GFR.Phosphate [Mass/Vol]4.2 mg/dL2.7 - 4.8 mg/dLMetroHealth Parma Medical Center W Auto Differential panel (Bld)on 11-01-2024 Anisocytosis Ql (Bld)PresentClegalion hospital ClinicBasophils (Bld) [#/Vol]0.09 10*3/uL NINFCleveland ClinicBasophils/100 WBC (Bld)2 %[facility] HospitalDifferential cell count method Nom (Bld)ManualClegalion hospital ClinicEosinophils (Bld) [#/Vol]0.04 10*3/uLNINFHolmes County Joel Pomerene Memorial HospitalEosinophils/100 WBC (Bld)1 %[facility] Erythrocyte distribution width (RBC) [Ratio]17.6 %High11.5 - 15.0 %[facility] HospitalHematocrit (Bld) [Volume fraction]26.3 %Low39.0 - 51.0 %[facility] Hemoglobin (Bld) [Mass/Vol]8.2 g/dLLow13.0 - 17.0 g/dLHolmes County [facility] Interpretation and review of laboratory resultsAbnormalCThe [facility] Lymphocytes (Bld) [#/Vol]0.22 10*3/uLLowHolmes County Joel Pomerene Memorial HospitalLymphocytes/100 WBC (Bld)5 %[facility] HospitalH (RBC) [Entitic mass]29.8 pg26.0 - 34.0 pgCCleveland Clinic Mercy HospitalHC (RBC) [Mass/Vol]31.2 g/dL30.5 - 36.0 g/dLMarietta Memorial HospitalV (RBC) [Entitic vol]95.6 fL80.0 - 100.0 fLCuniversity hospitals geauga medical centerand ClinicMeta %1 %[facility] Monocytes (Bld) [#/Vol]0.09 10*3/uLNINFHolmes County Joel [facility]ome[facility] Memorial HospitalMonocytes/100 WBC (Bld)2 %[facility] HospitalNeutrophils (Bld) [#/Vol]3.9 10*3/uLHolmes County [facility] Neutrophils/100 WBC (Bld)89 %[facility] HospitalNucleated RBC (Bld) [#/Vol]NINF [facility] HospitalNucleated RBC/100 WBC (Bld) [Ratio]0 %/100 WBCHolmes County Joel P[facility]rene [facility] Ovalocytes LM Ql (Bld)FewHolmes County Joel Pomerene Memorial HospitalPlatelet mean volume (Bld) [Entitic vol]9 fL9.0 - 12.7 fLCleveland ClinicPlatelets (Bld) [#/Vol]565 10*3/uLHigh [facility] HospitalPlatelets Estimate (Bld) [#/Vol]IncreasedCleCleveland Clinic Mercy HospitalRBC (Bld) [#/Vol]2.75 10*6/uLLow4.20 - 6.00 m/uLHolmes County Joel Pomerene Memorial HospitalRBC FragmentsFew AbnormalNone SeenHolmes County Joel Pomerene Memorial HospitalRed Cell MorphReviewed: see results of individual morphologiesCleveland ClinicWBC (Bld) [#/Vol]4.38 10*3/[facility] Left Shift Ql (Bld)[facility] CenterThis is an appended report. These results have been appended to a previously verified report.[facility] MAGNESIUM SERPL-MCNCon [id number] Type: BLOOD SPECIMEN Ordering Facility: [facility] Address: [address] [address] Original Ordering Provider: SUZE RENAE NT-PROBNP SERPL-MCNCon 76-79-5668Mexawdybrvz peptide B (Bld) [Mass/Vol]480 pg/mLHighNINF - 125 pg/mL [facility] HospitalSpecimen Type: BLOOD SPECIMEN Ordering Facility: [facility] Address: [address] [place] [address] Original Ordering Provider: JONAS CHATMAN RENAL FUNC 2000 PNL SERPLon [id number] PHOSPHATE SERPL-MCNC4.2 mg/dL2.7 - 4.8 mg/dLGeneral Leonard Wood Army Community HospitalEGFRCR SERPLBLD CKD-EPI [id number]- PINFNOMadison Medical CenterComment on above: Estimated Glomerular Filtration [...] actual GFR.Specimen Type: BLOOD SPECIMEN Ordering Facility: [facility] Address: [address] [place] [address] Original Ordering Provider: CAMILA MARIOERRITINon 41-28-1635Ygsvmuig [Mass/Vol]5826 ng/rXOsto81.3 - 565.7 ng/mLCleveland ClinicFOLATE, SERUMon 12-77-1199Lzdfsf [Mass/Vol]9.2 ng/mL4.7 - PINF ng/mLCleveland ClinicFerritin [Mass/Vol]on 15-75-7373Knfbtpanbndxxl and review of laboratory resultsAbnormal Barth ClinicCleveland ClinicIron and Iron binding capacity panelon 65-63-4539Szgntfmauiucdv and review of laboratory resultsAbnormalCleveland ClinicIron [Mass/Vol]28 ug/dLLow41 - 186 ug/dLClegalion hospital ClinicIron binding capacity [Mass/Vol]74 ug/uYMol265 - 386 ug/dLHolmes County Joel Pomerene Memorial HospitalIron/TIBC [Molar ratio]37.8 %20.0 - 55.0 %[facility] ShawLaboratory - Chemistry and Chemistry - challengeon 77-24-4191Vpefhhd [Mass/Vol]2.6 g/dLLow3.9 - 4.9 g/dLNOMS HealthcareAnion gap [Moles/Vol]11 mmol/L8 - 15 mmol/LNOMS Healthcare Calcium [Mass/Vol]8.5 mg/dL8.5 - 10.2 mg/dLNOMS HealthcareChloride [Moles/Vol] 100 mmol/L98 - 107 mmol/LNOMS HealthcareCO2 [Moles/Vol]26 mmol/L22 - 30 mmol/L NOMS HealthcareCreatinine [Mass/Vol]0.88 mg/dL0.73 - 1.22 mg/dLNOMS Healthcare Glucose [Mass/Vol]101 mg/pFFocp55 - 99 mg/dLNOMS HealthcareComment on above:The [place] Diabetes Association (ADA) provides guidance for cutoff [...] Standards of Medical Care in Diabetes 2016, [place] Diabetes Association. Diabetes Care. 2016.39(Suppl 1). Magnesium [Mass/Vol]1.8 mg/dL1.7 - 2.3 mg/dLNOMS HealthcarePotassium [Moles/Vol] 5 mmol/L3.7 - 5.1 mmol/LNOMS HealthcareSodium [Moles/Vol]137 mmol/L136 - 144 mmol/LNOMS HealthcareUrea nitrogen [Mass/Vol]7 mg/dLLow9 - 24 mg/dLNOMS HealthcareMagnesium [Mass/Vol]on 57-80-0681Svtgmkkzgholvu and review of laboratory resultsNormalCleveland ClinicNT PRO BNPon 30-51-5575Nuaklnyprac peptide.B prohormone N-Terminal [Mass/Vol]480 pg/mLHighNINF - 125 pg/mLCleveland ClinicNo Panel Informationon 93-51-3525Emvqzqpuwuzunk and review of laboratory resultsNormalCleveland [facility] ClinicInterpretation and review of laboratory resultsAbnormalNOMadison Medical CenterNOSD HealthcareRenal function 2000 panelon 46-73-3152ZFR/1.73 sq M.predicted among non-blacks MDRD (S/P/Bld) [Vol [...] reflect actual GFR.Phosphate [Mass/Vol]4.2 mg/dL2.7 - 4.8 mg/dLHolmes County Joel Pomerene Memorial HospitalVITAMIN B12on 25-60-3286Ovunjkshl (Vitamin B12) [Mass/Vol] 878 pg/mL232 - 1245 pg/mLCleveland Bethesda HospitalC-REACTIVE PROTEINon 42-50-8610WEC [Mass/Vol]23.3 mg/dLHighNINF - 0.9 mg/dLMetroHealth Parma Medical Center W Auto Differential panel (Bld)on 92-62-9463Cippntkzvjzx Ql (Bld)PresentHolmes County Joel Pomerene Memorial HospitalBasophils (Bld) [#/Vol]0 10*3/uLNINFOrlando ClinicBasophils/100 WBC (Bld)0 %[facility] HospitalDifferential cell count method Nom (Bld)ManualClegalion hospital ClinicEosinophils (Bld) [#/Vol]0.05 10*3/uLNINFHolmes County Joel Pomerene Memorial HospitalEosinophils/100 WBC (Bld)1 % [facility] HospitalErythrocyte distribution width (RBC) [Ratio]17.3 %High11.5 - 15.0 %[facility] HospitalHematocrit (Bld) [Volume fraction]25.1 %Low39.0 - 51.0 % [facility] HospitalHemoglobin (Bld) [Mass/Vol]7.9 g/dLLow13.0 - 17.0 g/dLHolmes County Joel Pomerene Memorial HospitalInterpretation and review of laboratory resultsAbnormalCThe [facility] Lymphocytes (Bld) [#/Vol]0.2 10*3/uLLowHolmes County Joel Pomerene Memorial HospitalLymphocytes/100 WBC (Bld) 4 %[facility] HospitalMCH (RBC) [Entitic mass]30.3 pg26.0 - 34.0 pgCThe [facility] MCHC (RBC) [Mass/Vol]31.5 g/dL30.5 - 36.0 g/dLHolmes County Joel Pomerene Memorial HospitalMCV (RBC) [Entitic vol]96.2 fL80.0 - 100.0 fLCThe Bellevue HospitalMonocytes (Bld) [#/Vol]0.05 10*3/uL NINBucyrus Community HospitalMonocytes/100 WBC (Bld)1 %[facility] HospitalNeutrophils (Bld) [#/Vol]4.73 10*3/uLHolmes County Joel Pomerene Memorial HospitalNeutrophils/100 WBC (Bld)94 %[facility] Nucleated RBC (Bld) [#/Vol]NINFCThe Bellevue HospitalNucleated RBC/100 WBC (Bld) [Ratio]0 %/100 WBCHolmes County Joel Pomerene Memorial HospitalOvalocytes LM Ql (Bld)FewHolmes County [facility] Platelet mean volume (Bld) [Entitic vol]9.3 fL9.0 - 12.7 [facility] Platelets (Bld) [#/Vol]526 10*3/uLHighHolmes County Joel Pomerene Memorial HospitalPlatelets Estimate (Bld) [#/Vol]IncreasedHolmes County Joel Pomerene Memorial HospitalRBC (Bld) [#/Vol]2.61 10*6/uLLow4.20 - 6.00 m/uL [facility] HospitalRed Cell MorphReviewed: see results of individual morphologies [facility] HospitalWBC (Bld) [#/Vol]5.03 10*3/uLHolmes County Joel Pomerene Memorial HospitalThis is an appended report. These results have been appended to a previously verified report. [facility] ShawCCF PHOSPHATE SERPL-MCNCon 52-53-4408MLL PHOSPHATE SERPL-MCNC4.1 mg/dL2.7 - 4.8 mg/dLGeneral Leonard Wood Army Community HospitalSpecimen Type: BLOOD SPECIMEN Ordering Facility: [facility] Address: [address] [place] [address] Original Ordering Provider: DAVID MYERSISYNCComprehensive metabolic 2000 panelon 77-94-5133Zivewzc [Mass/Vol]2.4 g/dLLow3.9 - 4.9 g/dLOrlando ClinicALP [Catalytic activity/Vol]158 U/LHigh38 - 113 U/LCleveland ClinicALT [Catalytic activity/Vol]8 U/LLow10 - 54 U/LCleveland ClinicAnion gap [Moles/Vol]12 mmol/L8 - 15 mmol/LCleveland ClinicAST [Catalytic activity/Vol]16 U/L14 - 40 U/L [facility] HospitalBilirubin [Mass/Vol]0.3 mg/dL0.2 - 1.3 mg/dLHol[facility] County [facility] Calcium [Mass/Vol]8.1 mg/dLLow8.5 - 10.2 mg/dLOrlando ClinicChloride [Moles/Vol]102 mmol/L98 - 107 mmol/LCleveland ClinicCO2 [Moles/Vol]22 mmol/L22 - 30 mmol/LCleveland ClinicCreatinine [Mass/Vol]0.82 mg/dL0.73 - 1.22 mg/dL [place] ClinicGFR/1.73 sq M.predicted among non-blacks MDRD (S/P/Bld) [...] reflect actual GFR.Glucose [Mass/Vol]82 mg/dL74 - 99 mg/dLClegalion hospital ClinicComment on above:The [place] Diabetes Association (ADA) provides guidance for cutoff [...] Standards of Medical Care in Diabetes 2016, [place] Diabetes Association. Diabetes Care. 2016.39(Suppl 1). Potassium [Moles/Vol]5.1 mmol/L3.7 - 5.1 mmol/LCleveland ClinicProtein [Mass/Vol]5 g/dLLow6.3 - 8.0 g/dLOrlando ClinicSodium [Moles/Vol]136 mmol/L136 - 144 mmol/LCleveland ClinicUrea nitrogen [Mass/Vol]8 mg/dLLow9 - 24 mg/dL [facility] HospitalGGTon 60-60-3006Stpob glutamyl transferase [Catalytic activity/Vol]111 U/LHigh10 - 70 U/LCleveland ClinicGamma glutamyl transferase [Catalytic activity/Vol]on 43-72-3777Fpbrkpsznhjdqr and review of laboratory resultsAbnormalCleveland [facility] ClinicMAGNESIUMon 79-98-7577Hwepargqm [Mass/Vol]1.6 mg/dLLow1.7 - 2.3 mg/dLHolmes County Joel Pomerene Memorial HospitalNT PRO BNPon 10-31-2024 Natriuretic peptide.B prohormone N-Terminal [Mass/Vol]462 pg/mLHighNINF - 125 pg/mLCleveland ClinicNatriuretic peptide.B prohormone N-Terminal [Mass/Vol]on 35-03-1508Rnpoxcdcbkigwa and review of laboratory resultsAbnormalCCommunity Memorial HospitalNo Panel Informationon 16-55-4777Ddpddtxrlzyrjy and review of laboratory resultsAbnormalCGreen Cross Hospital PHOSPHORUS INORGANICon 38-09-6304Aafllnedd [Mass/Vol]4.1 mg/dL2.7 - 4.8 mg/dL Barth ClinicPhosphate [Mass/Vol]on 51-17-0037Lgouavgzbwibxu and review of laboratory resultsNormalCleveland ClinicTACROLIMUS/FK-506 BLOrdered By: Pascual Adler on 98-22-4523Gshikafabw (Bld) [Mass/Vol]3.5 ng/mLLow5.0 - 20.0 ng/mLCleveland ClinicComment [...] situation. Test performed by chemiluminescent immunoassay using [employer] Alinity i.Tacrolimus (Bld) [Mass/Vol]Ordered By: Pascual Adler on 17-31-0496Odvrqquxsshhdb and review of laboratory resultsAbnormalCuniversity hospitals geauga medical centerand [facility] 10-17-2024 Echocardiography Report: Transthoracic Echo [facility] Bedside Date of service: 10/17/2024 11:11:17 AM SALES REPRESENTATIVE Ordering physician: BRANDI BECKETT Exam indication: Shortness [...] * * * Final * * * [employer] : [id number]^[employer]^SI^SUIDCC Radiology, Radiologist, - 10/17/2024 Echocardiography Report: Transthoracic Echo [facility] [place] Bedside Date of service: 10/17/2024 11:11:17 AM SALES REPRESENTATIVE Ordering physician: BRANDI BECKETT Exam indication: Shortness [...] * * * Final * * * [employer] : [id number]^[employer]^SI^CELESTE ID [facility] HospitalRadiology Study observation (narrative)[facility] HospitalECHOOrdered By: Radiologist Radiology on [id number] [facility] Wood Army [facility] Hospital Work Phone: cCF O+P SPEC MICROon [id number] O+P SPEC MICRO OVA AND PARASITE EXAM: No Parasites Seen [facility] HospitalOriginal Ordering Provider: BRANDI Syed TXLENYAnMed Health Medical Center CYTOLOGY NON-GYNon [id number] DISCLAIMERNOMadison Medical CenterComment on above: Laboratory Developed Test (LDT) Disclaimer: Performance characteristics of immunohistochemical, immunofluorescent, and chromogenic in-situ hybridization tests have been determined by the performing laboratory within [facility]'s [facility] Pathology and Laboratory Medicine Department ([facility], [facility], [facility], [facility], [facility], [facility], or [facility]) in a manner consistent with CLIA requirements. One or more of these tests may not have been cleared or approved by the FDA. RT-PLM is regulated under CLIA as qualified to perform high- complexity testing. These tests are used for clinical purposes. These should not be regarded asinvestigational or for research. Positive and negative controls stain appropriately. [facility] CASE REPORTNOMadison Medical CenterComment on above:Medical Cytology Report Case: [id number] Authorizing Provider: Nilay Villatoro MD Collected: 10/14/2024 03:31 PM Ordering Location: [place] [address] Received: 10/14/2024 06:22 PM Pathologist: Belén Green [...] FINAL PERFORMING LABNOMS HealthcareComment on above:Technical component, aquatic laborer screening performed at: [facility], [address] [place] [address] CLIA: [id number] Diagnostic interpretation performed at: [facility], [address] [place] [address] CLIA# [id number] [employer] Professor: Emmett New MD C[facility] GROSS DESCRIPTIONNOMS HealthcareComment on above:A. Pleural Cavity, Left 60 cc cloudy kaylie fluid with material. ThinPrep and Cell Block prepared. C[facility] ORDER COMMENTNOMS HealthcareComment on above:Pre-op diagnosis: Pleural effusion [J90] Specimen Type: SPECIMEN FROM PLEURA OBTAINED BY THORACENTESIS Ordering Facility: [facility] Address: [address] [place] [address] Original Ordering Provider: NILAY MONCADA HealthcareCCF RESP PATH 12B PNL SPEC JESSICA+PROBEon [id number] RESP PATH 12B PNL SPEC JESSICA+PROBE INFLUENZA [...] HealthcareInterpretation and review of laboratory resultsAbnormal NOMS OpgzeokjdfCOUM-PoB-9 (COVID-19) RNA JESSICA+probe Ql (Unsp spec) SARS-COV-2 (AGENT OF COVID-19) RNA: Not detected AbnormalNOMS HealthcareOriginal Ordering Provider: BRANDI CANDELARIOHARPER COUNTY COMM[facility] HealthcareC-REACTIVE PROTEINon [id number] [Mass/Vol]22.3 mg/dLHighNINF - 0.9 mg/dLMetroHealth Parma Medical Center W Auto Differential panel (Bld)on 88-54-8490Yrdonpgli (Bld) [#/Vol]0.04 10*3/uLNINFCleCleveland Clinic Mercy HospitalDifferential cell count method Nom (Bld)AutoCleveland ClinicEosinophils (Bld) [#/Vol]0.36 10*3/uLNISt. Mary's Medical CenterImmature granulocytes (Bld) [#/Vol]0.13 10*3/uLHighMorrow County Hospital Immature granulocytes/100 WBC (Bld)1.4 %[facility] HospitalLymphocytes (Bld) [#/Vol]0.26 10*3/uLLowOrlando ClinicMonocytes (Bld) [#/Vol]1.34 10*3/uLHigh NINFCleveland ClinicNeutrophils (Bld) [#/Vol]7.15 10*3/uLHolmes County Joel [facility] Hospital Nucleated RBC (Bld) [#/Vol]NINFCleveland ClinicNucleated RBC/100 WBC (Bld) [Ratio]0 %/100 WBCHolmes County Joel Pomerene Memorial HospitalPlatelet mean volume (Bld) [Entitic vol]9.1 fL 9.0 - 12.7 fLCleveland ClinicPlatelets (Bld) [#/Vol]503 10*3/uLVeterans Health AdministrationWBC (Bld) [#/Vol]9.28 10*3/uLHolmes County Joel Pomerene Memorial HospitalCCF CBC W AUTO DIFF BLDon [id number] BASOPHILS # BLD AUTO0.04NIErlanger [facility] System DIFFERENTIAL METHOD BLDAutoNOMS [facility] EOSINOPHIL # BLD AUTO0.36[facility]IErl[facility] LYMPHOCYTES # BLD AUTO0.26LowFreeman Neosho Hospital MONOCYTES # BLD AUTO1.34HighNIAshland City Medical CenterF NEUTROPHILS # BLD AUTO7.15NOMS [facility] Regional Medical CenterF NRBC # BLD AUTO <0.01NIErlanger [facility] NRBC/100 WBC BLD-RTO0/100 WBCFreeman Neosho Hospital PLATELET # BLD [id number] Hospital of Pittsburgh PMV BLD AUTO9.1 fL9.0 - 12.7 fLFreeman Neosho Hospital WBC # BLD AUTO9.28[facility] GRANULOCYTES # BLD AUTO0.13 HighNICopper Basin Medical Center GRANULOCYTES/LEUK NFR BLD AUTO1.4 %[facility] Specimen Type: BLOOD SPECIMEN Ordering Facility: [facility] Address: [address] [place] [address] Original Ordering Provider: DAVID RENE ABD/PEL WO IVCONon 10-07-2024* * *Final Report* * * DATE OF EXAM: Oct 07 2024 3:00PM [facility] 0531 - CT ABD/PEL WO IVCON [...] on 10/07/2024 3:54 PM via verbal communication. Regeneration Operator: SRINI Transcribe Date/Time: Oct 07 2024 3:17P Dictated by : JOSE GUADALUPE VÁZQUEZ MD This examination was interpreted and the report reviewed and electronically signed by: JOSE GUADALUPE VÁZQUEZ MD on Oct 07 2024 4:01PM EST [id number]^AGFA_IDC^SI^ACNCCFRadiology, Radiologist, - 10/07/2024 * * *Final Report* * * DATE OF EXAM: Oct 07 2024 3:00PM [facility] 0531 - CT ABD/PEL WO IVCON [...] on 10/07/2024 3:54 PM via verbal communication. Regeneration Operator: SRINI Transcribe Date/Time: Oct 07 2024 3:17P Dictated by : JOSE GUADALUPE VÁZQUEZ MD This examination was interpreted and the report reviewed and electronically signed by: JOSE GUADALUPE VÁZQUEZ MD on Oct 07 2024 4:01PM EST [id number]^AGFA_IDC^SI^ACN NOMS HealthcareCT ABD/PEL WO IVCON* * *Final Report* * * DATE OF EXAM: Oct 07 2024 3:00PM [facility] 0531 - CT ABD/PEL WO IVCON [...] on 10/07/2024 3:54 PM via verbal communication. Regeneration Operator: SRINI Transcribe Date/Time: Oct 07 2024 3:17P Dictated by : JOSE GUADALUPE VÁZQUEZ MD This examination was interpreted and the report reviewed and electronically signed by: JOSE GUADALUPE VÁZQUEZ MD on Oct 07 2024 4:01PM EST [id number]_[email or web address] HospitalAL ABD/PEL WO IVCONOrdered By: Radiologist Radiology on [id number] [employer] Work Phone: cT BRAIN WO IVCONon 10-07-2024* * *Final Report* * * DATE OF EXAM: Oct 07 2024 3:00PM [facility] 0504 - CT BRAIN WO IVCON [...] PROCESS. NO SIGNIFICANT INTERVAL CHANGE SINCE 08/27/2024. Regeneration Operator: SRINI Transcribe Date/Time: Oct 07 2024 3:20P Dictated by : ROSAURA CERVANTES MD This examination was interpreted and the report reviewed and electronically signed by: ROSAURA CERVANTES MD on Oct 07 2024 3:22PM EST [id number]^AGFA_IDC^SI^ACNCCFRadiology, Radiologist, - 10/07/2024 * * *Final Report* * * DATE OF EXAM: Oct 07 2024 3:00PM [facility] 0504 - CT BRAIN WO IVCON [...] PROCESS. NO SIGNIFICANT INTERVAL CHANGE SINCE 08/27/2024. Regeneration Operator: SRINI Transcribe Date/Time: Oct 07 2024 3:20P Dictated by : ROSAURA CERVANTES MD This examination was interpreted and the report reviewed and electronically signed by: ROSAURA CERVANTES MD on Oct 07 2024 3:22PM EST [id number]^AGFA_IDC^SI^ACN NOMS HealthcareCT BRAIN WO IVCON* * *Final Report* * * DATE OF EXAM: Oct 07 2024 3:00PM [facility] 0504 - CT BRAIN WO IVCON [...] PROCESS. NO SIGNIFICANT INTERVAL CHANGE SINCE 08/27/2024. Regeneration Operator: SRINI Transcribe Date/Time: Oct 07 2024 3:20P Dictated by : ROSAURA CERVANTES MD This examination was interpreted and the report reviewed and electronically signed by: ROSAURA CERVANTES MD on Oct 07 2024 3:22PM EST [id number]_[id number] HospitalCT Head WO contraston 10-07-2024 IMPRESSION: NO CT EVIDENCE OF ACUTE INTRACRANIAL PROCESS. NO SIGNIFICANT INTERVAL CHANGE SINCE 08/27/2024. Regeneration Operator: SRINI Transcribe Date/Time: Oct 07 2024 3:20P Dictated by : ROSAURA CERVANTES MD This examination was interpreted and the report reviewed and electronically signed by: ROSAURA CERVANTES MD on Oct 07 2024 3:22PM EST [facility]* * *Final Report* * * DATE OF EXAM: Oct 07 2024 3:00PM [facility] 0504 - CT BRAIN WO IVCON [...] are unremarkable. Localizer images: No additional findings. [facility] RADIOLOGYProvider, [facility] - 10/07/2024 * * *Final Report* * * DATE OF EXAM: Oct 07 2024 3:00PM [facility] 0504 - CT BRAIN WO IVCON [...] PROCESS. NO SIGNIFICANT INTERVAL CHANGE SINCE 08/27/2024. Regeneration Operator: [facility] Transcribe Date/Time: Oct 07 2024 3:20P Dictated by : ROSAURA CERVANTES MD This examination was interpreted and the report reviewed and electronically signed by: ROSAURA CERVANTES MD on Oct 07 2024 3:22PM EST [facility] HospitalCYTOMEGALOVIRUS (CMV) DNA, QUANTITATIVE PCR, PLASMAon 10-07-2024 CMV DNA JESSICA+probe [#/Vol]82HighHolmes County Joel Pomerene Memorial HospitalCMV DNA JESSICA+probe [Log #/Vol]1.91 Toledo HospitalV DNA JESSICA+probe Qn (P)DetectedAbnormalNot DetectedHolmes County Joel Pomerene Memorial HospitalInterpretation and review of laboratory resultsAbnoalCThe [facility] Hospital sav CMV is an in vitro nucleic acid amplification test for the quantitation of cytomegalovirus (CMV) DNA in human EDTA plasma. The linear range of the assay is 34.5 to 10,000,000 IU/mL (1.54 - 7.00log IU/mL). The lower limit of detection of the assay is 34.5 IU/mL.[facility], Edwin ShawComprehensive metabolic 2000 panelon 89-46-7155Udrywuw [Mass/Vol]2.3 g/dLLow3.9 - 4.9 g/dLCleveland ClinicALP [Catalytic activity/Vol]215 U/LHigh38 - 113 U/LCleveland ClinicALT [Catalytic activity/Vol]15 U/L10 - 54 U/LCleveland ClinicAnion gap [Moles/Vol]15 mmol/L8 - 15 mmol/LCleveland ClinicAST [Catalytic activity/Vol]22 U/L14 - 40 U/LCleveland ClinicBilirubin [Mass/Vol]0.2 mg/dL0.2 - 1.3 mg/dLClegalion hospital Clinic Calcium [Mass/Vol]8 mg/dLLow8.5 - 10.2 mg/dLClegalion hospital ClinicChloride [Moles/Vol] 101 mmol/L98 - 107 mmol/LCleveland ClinicCO2 [Moles/Vol]19 mmol/LLow22 - 30 mmol/LCleveland ClinicCreatinine [Mass/Vol]1.09 mg/dL0.73 - 1.22 mg/dLOrlando ClinicGFR/1.73 sq M.predicted among non-blacks MDRD (S/P/Bld) [Vol rate/Area]73 mL/min/{1.73_m2}- PINFCThe Bellevue HospitalComment on above:Estimated Glomerular Filtration Rate (eGFR) [...] actual GFR.Glucose [Mass/Vol]97 mg/dL74 - 99 mg/dL [facility] on above:The [place] Diabetes Association (ADA) provides guidance for cutoff [...] Standards of Medical Care in Diabetes 2016, [place] [employer]. Diabetes Care. 2016.39(Suppl 1). Potassium [Moles/Vol]4.9 mmol/L3.7 - 5.1 mmol/LCleveland ClinicProtein [Mass/Vol]4.7 g/dLLow6.3 - 8.0 g/dLOhioHealth Doctors Hospitalodium [Moles/Vol]135 mmol/L Qxg800 - 144 mmol/LCleveland ClinicUrea nitrogen [Mass/Vol]9 mg/dL9 - 24 mg/dL [facility] HospitalGGTon 63-13-4564Xzftf glutamyl transferase [Catalytic activity/Vol]106 U/LHigh10 - 70 U/LCleveland ClinicGamma glutamyl transferase [Catalytic activity/Vol]on 67-89-3178Hampddbqbljbqi and review of laboratory resultsAbnormalCuniversity hospitals geauga medical centerand [facility] Marymount HospitalLaboratory - Hematology and Cell countson 51-55-0008Mqsfrxiyy/100 WBC (Bld)0.4 %[facility] HealthcareEosinophils/100 WBC (Bld)3.9 %[facility] Community HospitalErythrocyte distribution width (RBC) [Ratio]16 % High11.5 - 15.0 %[facility] HospitalHematocrit (Bld) [Volume fraction]22.1 %Low39.0 - 51.0 %[facility] HospitalHemoglobin (Bld) [Mass/Vol]7.2 g/dLLow13.0 - 17.0 g/dL [facility] HospitalLymphocytes/100 WBC (Bld)2.8 %[facility] HospitalMCH (RBC) [Entitic mass]30.9 pg26.0 - 34.0 pgNevada Regional Medical CenterHC (RBC) [Mass/Vol]32.6 g/dL30.5 - 36.0 g/dLGeneral Leonard Wood Army Community HospitalMCV (RBC) [Entitic vol]94.8 fL80.0 - 100.0 fLGeneral Leonard Wood Army Community HospitalMonocytes/100 WBC (Bld)14.4 %[facility] HospitalNeutrophils/100 WBC (Bld) 77.1 %[facility] HospitalRBC (Bld) [#/Vol]2.33 10*6/uLLow4.20 - 6.00 m/uLHEBER VALLEY MEDICAL [facility]ENTER HealthcareMAGNESIUMon 54-66-4485Asznecqlf [Mass/Vol]1.7 mg/dL1.7 - 2.3 mg/dL Barth ClinicMagnesium [Mass/Vol]on 35-44-0110Tvmlrecsjrcnzn and review of laboratory resultsNormalCleveland ClinicNT PRO BNPon 22-45-5994Mokvvrmztol peptide.B prohormone N-Terminal [Mass/Vol]533 pg/mLHighNINF - 125 pg/mLCleveland ClinicNatriuretic peptide.B prohormone N-Terminal [Mass/Vol]on 10-07-2024 Interpretation and review of laboratory resultsAbnoAtrium Health Mercyand [facility] Marymount HospitalNo Panel InformationOrdered By: Radiologist Radiology on 80-09-7134VTYJ [employer] Work Phone: No Panel Informationon 93-04-5489Kigybzvsnfjccz and review of laboratory resultsAbOur Lady of Mer[facility] Interpretation and review of laboratory resultsAbPaul [facility] HealthcareRadiology Study observation (narrative)NOMS HealthcareTACROLIMUS/FK- 506 BLOrdered By: Sabrina Bishop on 28-50-7771Qeowdyqbkv (Bld) [Mass/Vol]6.6 ng/mL5.0 - 20.0 ng/mLCleveland ClinicComment [...] on 10-07-2024 Interpretation and review of laboratory resultsNormalCuniversity hospitals geauga medical centerand [facility] W Auto Differential panel (Bld)on 37-99-5371Spbboohqb (Bld) [#/Vol] 0.03 10*3/uLNINFHolmes County Joel Pomerene Memorial HospitalDifferential cell count method Nom (Bld)Auto [facility] HospitalEosinophils (Bld) [#/Vol]0.42 10*3/uLNISt. Mary's Medical Center Immature granulocytes (Bld) [#/Vol]0.09 10*3/uLNISt. Mary's Medical CenterImmature granulocytes/100 WBC (Bld)1 %[facility] HospitalLymphocytes (Bld) [#/Vol]0.33 10*3/uLLowOrlando ClinicMonocytes (Bld) [#/Vol]1.26 10*3/uLHighNINFOrlando ClinicNeutrophils (Bld) [#/Vol]6.83 10*3/uLHolmes County Joel Pomerene Memorial HospitalNucleated RBC (Bld) [#/Vol]NINFCThe Bellevue HospitalNucleated RBC/100 WBC (Bld) [Ratio]0 %/100 WBC Orlando ClinicPlatelet mean volume (Bld) [Entitic vol]9.1 fL9.0 - 12.7 fL Orlando ClinicPlatelets (Bld) [#/Vol]482 10*3/uLHighHolmes County Joel Pomerene Memorial HospitalWBC (Bld) [#/Vol]8.96 10*3/uLHolmes County Joel Pomerene Memorial HospitalCCF CBC W AUTO DIFF BLDon 21-38-9590BPO BASOPHILS # BLD AUTO0.03[facility]IErlanger [facility] DIFFERENTIAL METHOD BLDAutoNOMS [facility] EOSINOPHIL # BLD AUTO0.42[facility]IErl[facility] LYMPHOCYTES # BLD AUTO0.33[facility] MONOCYTES # BLD AUTO1.26HighNIErlanger Health System NEUTROPHILS # BLD AUTO6.83[facility] NRBC # BLD AUTO<0.01NIErlanger [facility] NRBC/100 WBC BLD-RTO0/100 WBCFreeman Neosho Hospital PLATELET # BLD [id number] [facility]osho Hospital PMV BLD AUTO9.1 fL9.0 - 12.7 fLFreeman Neosho Hospital WBC # BLD AUTO8.96[facility] GRANULOCYTES # BLD AUTO0.09NICo[facility] GRANULOCYTES/LEUK NFR BLD AUTO1 %NOMS HealthcareSpecimen Type: BLOOD SPECIMEN Ordering Facility: [facility] Address: [address] [place] [address] Original Ordering Provider: SUZE Almanzaroratory - Hematology and Cell countson 75-10-3299Aunzmeucf/100 WBC (Bld)0.3 %NOMS Healthcare Eosinophils/100 WBC (Bld)4.7 %NOMS HealthcareErythrocyte distribution width (RBC) [Ratio]16 %High11.5 - 15.0 %[facility] HospitalHematocrit (Bld) [Volume fraction]21.7 %Low39.0 - 51.0 %[facility] HospitalHemoglobin (Bld) [Mass/Vol]7 g/dL Low13.0 - 17.0 g/dLGeneral Leonard Wood Army Community HospitalLymphocytes/100 WBC (Bld)3.7 %[facility] MCH (RBC) [Entitic mass]31.1 pg26.0 - 34.0 pgGeneral Leonard Wood Army Community HospitalMCHC (RBC) [Mass/Vol]32.3 g/dL30.5 - 36.0 g/dLGeneral Leonard Wood Army Community HospitalMCV (RBC) [Entitic vol]96.4 fL 80.0 - 100.0 fLGeneral Leonard Wood Army Community HospitalMonocytes/100 WBC (Bld)14.1 %[facility] Neutrophils/100 WBC (Bld)76.2 %[facility] HospitalRBC (Bld) [#/Vol]2.25 10*6/uLLow 4.20 - 6.00 m/uLGeneral Leonard Wood Army Community HospitalNo Panel Informationon 14-72-1734Epbqoxhlhawqay and review of laboratory resultsAbnoDivine Savior Healthcare B-HYDROXYBUTYRATEon 82-43-3756Bwxm hydroxybutyrate [Moles/Vol]0.2 mmol/LNINF - 0.28 mmol/LCleveland ClinicInterpretation and review of laboratory resultsNormal [facility] W Auto Differential panel (Bld)on 03-21-1535Roazueomz (Bld) [#/Vol]0.03 10*3/NISt. Mary's Medical CenterDifferential cell count method Nom (Bld) AutoCleveland ClinicEosinophils (Bld) [#/Vol]0.33 10*3/uLNISt. Mary's Medical Center Immature granulocytes (Bld) [#/Vol]0.07 10*3/[facility], AvonImmature granulocytes/100 WBC (Bld)0.6 %[facility] HospitalLymphocytes (Bld) [#/Vol]0.29 10*3/uLLowOrlando ClinicMonocytes (Bld) [#/Vol]1.53 10*3/uLHighNINFCleveland ClinicNeutrophils (Bld) [#/Vol]8.81 10*3/uLHighOrlando ClinicNucleated RBC (Bld) [#/Vol]NINFCleveland ClinicNucleated RBC/100 WBC (Bld) [Ratio]0 %/100 WBC Orlando ClinicPlatelet mean volume (Bld) [Entitic vol]9 fL9.0 - 12.7 fL Orlando ClinicPlatelets (Bld) [#/Vol]481 10*3/uLVeterans Health AdministrationWBC (Bld) [#/Vol]11.06 10*3/uLVeterans Health AdministrationCCF CBC W AUTO DIFF BLDon 83-55-1851BDG BASOPHILS # BLD AUTO0.03[facility]IErl[facility] DIFFERENTIAL METHOD BLDAutoNOMS [facility] Regional Medical CenterF EOSINOPHIL # BLD AUTO0.33NIBaptist Memorial HospitalF LYMPHOCYTES # BLD AUTO0.29[facility] MONOCYTES # BLD AUTO1.53HighNIBaptist Memorial HospitalF NEUTROPHILS # BLD AUTO8.81[facility] HighlandsF NRBC # BLD AUTO<0.01NIErl[facility] NRBC/100 WBC BLD-RTO0/100 WBCFreeman Neosho Hospital PLATELET # BLD [id number] Hospital of Pittsburgh PMV BLD AUTO9 fL9.0 - 12.7 fLMid Missouri Mental Health CenterF WBC # BLD AUTO11.06[facility] GRANULOCYTES # BLD AUTO0.07NIC[facility] GRANULOCYTES/LEUK NFR BLD AUTO0.6 %NOMS HealthcareSpecimen Type: BLOOD SPECIMEN Ordering Facility: [facility] Address: [address] [place] [address] Original Ordering Provider: CAMILA ANDERSENaboratory - Hematology and Cell countson 78-33-1704Rrcqhfjmm/100 WBC (Bld)0.3 %[facility] Healthcare Eosinophils/100 WBC (Bld)3 %NOMS HealthcareErythrocyte distribution width (RBC) [Ratio]15.9 %High11.5 - 15.0 %NOMS HealthcareHematocrit (Bld) [Volume fraction] 21.9 %Low39.0 - 51.0 %NOMS HealthcareHemoglobin (Bld) [Mass/Vol]7.1 g/dLLow13.0 - 17.0 g/dLGeneral Leonard Wood Army Community HospitalLymphocytes/100 WBC (Bld)2.6 %Nevada Regional Medical CenterH (RBC) [Entitic mass]31 pg26.0 - 34.0 pgNevada Regional Medical CenterHC (RBC) [Mass/Vol]32.4 g/dL 30.5 - 36.0 g/dLNevada Regional Medical CenterV (RBC) [Entitic vol]95.6 fL80.0 - 100.0 fLGeneral Leonard Wood Army Community HospitalMonocytes/100 WBC (Bld)13.8 %[facility] HospitalNeutrophils/100 WBC (Bld) 79.7 %[facility] HospitalRBC (Bld) [#/Vol]2.29 10*6/uLLow4.20 - 6.00 m/uLHEBER VALLEY [facility]ENTER HealthcareLactate (Bld) [Moles/Vol]on 39-10-9669Eyvqluzpmzzdzx and review of laboratory resultsAbnormalCleveland ClinicLactate [Moles/Vol]0.4 mmol/LLow0.5 - 2.2 mmol/LCleveland ClinicOrlando ClinicMAGNESIUMon 83-43-1892Lcojiqafx [Mass/Vol]1.5 mg/dLLow1.7 - 2.3 mg/dLHolmes County Joel Pomerene Memorial HospitalNo Panel Informationon 92-60-4206Basjyzofdqbrcl and review of laboratory resultsAbnormalCleveland [facility] ClinicInterpretation and review of laboratory resultsAbnormal [facility] HealthcareRenal function 2000 panelon 95-68-4089Lumtpch [Mass/Vol]2.3 g/dLLow3.9 - 4.9 g/dLHolmes County Joel Pomerene Memorial HospitalAnion gap [Moles/Vol]11 mmol/L8 - 15 mmol/LCleveland ClinicCalcium [Mass/Vol]7.9 mg/dLLow8.5 - 10.2 mg/dLOrlando ClinicChloride [Moles/Vol]102 mmol/L98 - 107 mmol/LCleveland ClinicCO2 [Moles/Vol]20 mmol/LLow22 - 30 mmol/LCleveland ClinicCreatinine [Mass/Vol]1.11 mg/dL0.73 - 1.22 mg/dLOrlando ClinicGFR/1.73 sq M.predicted among non-blacks MDRD (S/P/Bld) [Vol rate/Area]71 mL/min/{1.73_m2}- PINF [facility] on above:Estimated Glomerular Filtration Rate (eGFR) is calculated using the 2020 CKD-EPI creatinine equation. This equation utilizes serum creatinine, sex, and age as parameters. The creatinine assay has traceable calibration to isotope dilution-mass spectrometry. Refer to KDIGO guidelines for clinical interpretation. In patients with unstable renal function, e.g. those with acute kidney injury, the eGFRmay not accurately reflect actual GFR.Glucose [Mass/Vol]110 mg/pWHldb82 - 99 mg/dLThe [facility] on above:The [place] Diabetes Association (ADA) provides guidance for cutoff [...] Standards of Medical Care in Diabetes 2016, [place] Diabetes Association. Diabetes Care. 2016.39(Suppl 1). Phosphate [Mass/Vol]3.6 mg/dL2.7 - 4.8 mg/dLHolmes County Joel Pomerene Memorial HospitalPotassium [Moles/Vol]4.6 mmol/L3.7 - 5.1 mmol/LCleveland ClinicSodium [Moles/Vol]133 mmol/EVda802 - 144 mmol/LCleveland ClinicUrea nitrogen [Mass/Vol]9 mg/dL9 - 24 mg/dLPaulding County Hospital-REACTIVE PROTEINon 30-10-2193TFV [Mass/Vol]24.7 mg/dLHigh NINF - 0.9 mg/dLMetroHealth Parma [facility] Center W Auto Differential panel (Bld)on 10-03-2024 Basophils (Bld) [#/Vol]0.03 10*3/uLNINFHolmes County Joel Pomerene Memorial HospitalDifferential cell count method Nom (Bld)AutoCleveland ClinicEosinophils (Bld) [#/Vol]0.22 10*3/uLNINF [facility] HospitalImmature granulocytes (Bld) [#/Vol]0.21 10*3/uLHighNISt. Mary's Medical CenterImmature granulocytes/100 WBC (Bld)1.9 %[facility] HospitalLymphocytes (Bld) [#/Vol]0.24 10*3/uLLowHolmes County Joel Pomerene Memorial HospitalMonocytes (Bld) [#/Vol]1.37 10*3/uLHigh NINFClevelcommunity health ClinicNeutrophils (Bld) [#/Vol]9.23 10*3/uLHighHolmes County [facility] Nucleated RBC (Bld) [#/Vol]NINFCThe Bellevue HospitalNucleated RBC/100 WBC (Bld) [Ratio]0 %/100 WBCHolmes County Joel Pomerene Memorial HospitalPlatelet mean volume (Bld) [Entitic vol]9.2 fL 9.0 - 12.7 fLCleveland ClinicPlatelets (Bld) [#/Vol]489 10*3/uLVeterans Health AdministrationWBC (Bld) [#/Vol]11.3 10*3/uLUK Healthcare CBC W AUTO DIFF BLDon 69-84-0183HXS BASOPHILS # BLD AUTO0.03[facility]IErl[facility] DIFFERENTIAL METHOD BLDAutoNOMFreeman Orthopaedics & Sports Medicine EOSINOPHIL # BLD AUTO0.22[facility] LYMPHOCYTES # BLD AUTO0.24[facility] MONOCYTES # BLD AUTO1.37High [facility] NEUTROPHILS # BLD AUTO9.23[facility] NRBC # BLD AUTO<0.01NIErlanger [facility] NRBC/100 WBC BLD-RTO0/100 WBCGeneral Leonard Wood Army Community Hospital CC PLATELET # BLD [id number] Hospital of Pittsburgh PMV BLD AUTO9.2 fL9.0 - 12.7 fL [facility] WBC # BLD AUTO11.3HAurora Medical Center– [facility] GRANULOCYTES # BLD AUTO0.21HighNICopper [facility] GRANULOCYTES/LEUK NFR BLD AUTO1.9 %[facility] HospitalSpecimen Type: BLOOD SPECIMEN Ordering Facility: [facility] Address: [address] [place] [address] Original Ordering Provider: DAVID MYERSISYNCComprehensive metabolic 2000 [facility] 75-18-0268Ccglbbj [Mass/Vol]2.5 g/dLLow3.9 - 4.9 g/dLOrlando ClinicALP [Catalytic activity/Vol]188 U/LHigh38 - 113 U/LCleveland ClinicALT [Catalytic activity/Vol]15 U/L10 - 54 U/LCleveland ClinicAnion gap [Moles/Vol]15 mmol/L8 - 15 mmol/LCleveland ClinicAST [Catalytic activity/Vol]17 U/L14 - 40 U/LCleveland ClinicBilirubin [Mass/Vol]0.2 mg/dL0.2 - 1.3 mg/dLOrlando ClinicCalcium [Mass/Vol]8 mg/dLLow8.5 - 10.2 mg/dLOrlando ClinicChloride [Moles/Vol]100 mmol/L98 - 107 mmol/LCleveland ClinicCO2 [Moles/Vol]17 mmol/LLow22 - 30 mmol/L [facility] HospitalCreatinine [Mass/Vol]1.01 mg/dL0.73 - 1.22 mg/dLHolmes County [facility] GFR/1.73 sq M.predicted among non-blacks MDRD (S/P/Bld) [Vol rate/Area]80 mL/min/{1.73_m2}- PINFCuniversity hospitals geauga medical centerand Bethesda HospitalComment on above:Estimated Glomerular Filtration Rate (eGFR) [...] actual GFR.Glucose [Mass/Vol]88 mg/dL74 - 99 mg/dL [facility] HospitalComment on above:The [place] Diabetes Association (ADA) provides guidance for cutoff [...] Standards of Medical Care in Diabetes 2016, [place] [employer]. Diabetes Care. 2016.39(Suppl 1). Potassium [Moles/Vol]4.7 mmol/L3.7 - 5.1 mmol/LCleveland ClinicProtein [Mass/Vol]4.7 g/dLLow6.3 - 8.0 g/dLOrlando ClinicSodium [Moles/Vol]132 mmol/L Azl006 - 144 mmol/LCleveland ClinicUrea nitrogen [Mass/Vol]9 mg/dL9 - 24 mg/dL [facility] HospitalGGTon 91-19-2070Lucam glutamyl transferase [Catalytic activity/Vol]104 U/LHigh10 - 70 U/LCleveland ClinicGamma glutamyl transferase [Catalytic activity/Vol]on 27-29-5130Dfeklzzsnhlxce and review of laboratory resultsAbnormalCuniversity hospitals geauga medical centerand [facility] HospitalLaboratory - Hematology and Cell countson 09-60-3943Ylgffhtxo/100 WBC (Bld)0.3 %[facility] HospitalEosinophils/100 WBC (Bld)1.9 %[facility] HospitalErythrocyte distribution width (RBC) [Ratio]15.9 % High11.5 - 15.0 %[facility] HospitalHematocrit (Bld) [Volume fraction]23.3 %Low39.0 - 51.0 %[facility] HospitalHemoglobin (Bld) [Mass/Vol]7.6 g/dLLow13.0 - 17.0 g/dL [facility] HospitalLymphocytes/100 WBC (Bld)2.1 %[facility] CenterH (RBC) [Entitic mass]31.7 pg26.0 - 34.0 pgNevada Regional Medical CenterHC (RBC) [Mass/Vol]32.6 g/dL30.5 - 36.0 g/dLNevada Regional Medical CenterV (RBC) [Entitic vol]97.1 fL80.0 - 100.0 fLGeneral Leonard Wood Army Community HospitalMonocytes/100 WBC (Bld)12.1 %[facility] HospitalNeutrophils/100 WBC (Bld) 81.7 %[facility] HospitalRBC (Bld) [#/Vol]2.4 10*6/uLLow4.20 - 6.00 m/uLNOMS HealthcareMAGNESIUMon 43-20-4705Obnycbavs [Mass/Vol]1.5 mg/dLLow1.7 - 2.3 mg/dL [facility] HospitalNT PRO BNPon 70-55-9918Irgbkdatjim peptide.B prohormone N- Terminal [Mass/Vol]502 pg/mLHighNINF - 125 pg/mLCleveland ClinicNatriuretic peptide.B prohormone N-Terminal [Mass/Vol]on 25-88-8552Dutxeaijfvgfna and review of laboratory resultsAbnormalCCommunity Memorial HospitalNo Panel Informationon 39-84-6496Okqnpdsoqexdva and review of laboratory resultsAbnormal [facility], [facility] ShawInterpretation and review of laboratory results AbnormalReynolds County General Memorial Hospital HealthcareTACROLIMUS/FK-506 BLOrdered By: Pascual Adler on 49-08-9563Hgdwzxnqwz (Bld) [Mass/Vol]4.9 ng/mLLow5.0 - 20.0 ng/mLCleveland ClinicComment [...] i.Tacrolimus (Bld) [Mass/Vol]Ordered By: Pascual Adler on 19-22-9589Hudhtserbrifrm and review of laboratory resultsAbnormalCCommunity Memorial HospitalCB panel Auto (Bld)on 68-39-1505Bqejyddee RBC (Bld) [#/Vol]NINFCleveland ClinicPlatelet mean volume (Bld) [Entitic vol]9.1 fL9.0 - 12.7 fLCleveland ClinicPlatelets (Bld) [#/Vol]466 10*3/uLVeterans Health AdministrationWBC (Bld) [#/Vol]8.23 10*3/uL [facility] CBC PNL BLD AUTOon 41-54-4363NQX NRBC # BLD AUTO<0.01NINF [facility] PLATELET # BLD [id number] [facility] PMV BLD AUTO9.1 fL9.0 - 12.7 fLFreeman Neos[facility] Hospital WBC # BLD AUTO8.23[facility] HospitalSpecimen Type: BLOOD SPECIMEN Ordering Facility: [facility] Address: [address] [place] [address] Original Ordering Provider: JONAS CHAVISERRITINon 10-02-2024 Ferritin [Mass/Vol]5605 ng/qMVtnv00.3 - 565.7 ng/mLCleveland ClinicFOLATE, SERUM on 38-92-2911Irtqyr [Mass/Vol]12.4 ng/mL4.7 - PINF ng/mLCleveland ClinicFerritin [Mass/Vol]on 64-10-2913Tvetpbgvchjlpa and review of laboratory resultsAbnormal [facility] ClinicIron and Iron binding capacity panelon 15-42-2347Bfpphopbxncisp and review of laboratory resultsAbnormalCleveland ClinicIron [Mass/Vol]16 ug/dLLow41 - 186 ug/dLHolmes County Joel Pomerene Memorial HospitalIron binding capacity [Mass/Vol]103 ug/hGAul449 - 386 ug/dLCleveland Clinic Union Hospitaln/TIBC [Molar ratio]15.5 %Low20.0 - 55.0 %[facility], [facility] ShawLaboratory - Hematology and Cell countson 76-85-9739Obdxdqaxfkh distribution width (RBC) [Ratio]15.9 %High11.5 - 15.0 %[facility] HospitalHematocrit (Bld) [Volume fraction] 24.3 %Low39.0 - 51.0 %[facility] HospitalHemoglobin (Bld) [Mass/Vol]7.8 g/dLLow13.0 - 17.0 g/dLNevada Regional Medical CenterH (RBC) [Entitic mass]30.8 pg26.0 - 34.0 pgNevada Regional Medical CenterHC (RBC) [Mass/Vol]32.1 g/dL30.5 - 36.0 g/dLNevada Regional Medical CenterV (RBC) [Entitic vol]96 fL80.0 - 100.0 fLGeneral Leonard Wood Army Community HospitalRBC (Bld) [#/Vol]2.53 10*6/uL Low4.20 - 6.00 m/uLNOMS HealthcareNo Panel Informationon 10-02-2024 Interpretation and review of laboratory resultsNormalCleveland Cleveland Clinic Marymount HospitalInterpretation and review of laboratory resultsAbnoSummerville Medical Center HealthcareTACROLIMUS/FK-506 BLOrdered By: Milagros Sosa [...] situation. Test performed by chemiluminescent immunoassay using [employer] Corpn[employer] i.Tacrolimus (Bld) [Mass/Vol]Ordered By: Milagros Sosa on 70-32-3503Zuetckusjuxrkc and review of laboratory results NormalSelect Medical [facility] Clinic Rehabilitation Hospital, Edwin ShawVITAMIN B12on 25-44-1592Dxqcuuphf (Vitamin B12) [Mass/Vol]655 pg/mL232 - 1245 pg/mLCleveland Bethesda HospitalC-REACTIVE PROTEINon 66-02-2070JVN [Mass/Vol]15.5 mg/dLHighNINF - 0.9 mg/dLHolmes County Joel Pomerene Memorial HospitalCBC W Auto Differential panel (Bld)on 24-37-9528Inbavukli (Bld) [#/Vol]0.05 10*3/uLNINF [facility] HospitalDifferential cell count method Nom (Bld)AutoCleveland [facility] Eosinophils (Bld) [#/Vol]0.18 10*3/uLNINFHolmes County [facility] Memorial HospitalImmature granulocytes (Bld) [#/Vol]0.05 10*3/uLNINFHolmes County Joel Pomerene Memorial HospitalImmature granulocytes/100 WBC (Bld) 0.7 %[facility] HospitalLymphocytes (Bld) [#/Vol]0.32 10*3/uLLowHolmes County [facility] Hospital Monocytes (Bld) [#/Vol]0.85 10*3/uLNINFHolmes County Joel Pomerene Memorial HospitalNeutrophils (Bld) [#/Vol] 6.06 10*3/uLCleveland ClinicNucleated RBC (Bld) [#/Vol]NINBucyrus Community Hospital Nucleated RBC/100 WBC (Bld) [Ratio]0 %/100 WBCHolmes County Joel Pomerene Memorial HospitalPlatelet mean volume (Bld) [Entitic vol]9.3 fL9.0 - 12.7 fLCThe Bellevue HospitalPlatelets (Bld) [#/Vol]446 10*3/uLVeterans Health AdministrationWBC (Bld) [#/Vol]7.51 10*3/uLWayne HealthCare Main CampusF CBC W AUTO DIFF BLDon 31-84-6075WAD BASOPHILS # BLD AUTO0.05NIErlanger [facility] System DIFFERENTIAL METHOD BLDAutoNOMFreeman Orthopaedics & Sports Medicine EOSINOPHIL # BLD AUTO0.18NIErlanger Health System LYMPHOCYTES # BLD AUTO0.32LowFreeman [facility]os[facility] Hospital MONOCYTES # BLD AUTO0.85NIErlanger [facility] NEUTROPHILS # BLD AUTO6.06[facility] NRBC # BLD AUTO<0.01NIErlanger Health System NRBC/100 WBC BLD-RTO0 /100 WBCFreeman Neosho Hospital PLATELET # BLD [id number] Hospital of Pittsburgh PMV BLD AUTO9.3 fL9.0 - 12.7 fLFreeman [facility]os[facility] Hospital WBC # BLD AUTO7.51NOMosaic [facility] St[facility] GRANULOCYTES # BLD AUTO0.05NICopper [facility] GRANULOCYTES/LEUK NFR BLD AUTO 0.7 %NOMS HealthcareSpecimen Type: BLOOD SPECIMEN Ordering Facility: [facility] Address: [address] [place] [address] Original Ordering Provider: SUZE GAMBLE [Mass/Vol]on 10-01-2024 Interpretation and review of laboratory resultsAbnormalChighland district hospital ClinicECG 12 leadon 57-25-7560Vnjcgovhvtw Rate : 74 BPM Atrial Rate : 74 BPM P-R Interval : 156 ms QRS Duration : 98 ms Q-T Interval : 420 ms QTC Calculation(Bazett) : 466 ms Calculated P [place] : 39 degrees Calculated R [place] : 64 degrees Calculated T [place] : 33 degrees SINUS RHYTHM WITH PREMATURE ATRIAL COMPLEXES OTHERWISE NORMAL ECG Confirmed by CAMERON OLIVAS, LUKE ([id number]) on 10/01/2024 11:21:21 AM NAME : LOYD BLANDON PID : [id number] : 1955 Gender : Male Race : ORD : [id number] Procedure Date : Sep 08 2024 15:14:27 Edit Date : Oct 01 2024 11:21:25 Diagnosis: SINUS RHYTHM WITH PREMATURE ATRIAL COMPLEXES OTHERWISE NORMAL ECG Confirmed by LUKE BARNES MD ([id number]) on 10/01/2024 11:21:21 AM Test Reason : [...] QTC Calculation(Bazett) : 466 ms Calculated P [place] : 39 degrees Calculated R [place] : 64 degrees Calculated T [place] : 33 degrees SINUS RHYTHM WITH PREMATURE ATRIAL COMPLEXES OTHERWISE NORMAL ECG Confirmed by LUKE BARNES MD ([id number]) on 10/01/2024 11:21:21 AM NAME : LOYD BLANDON PID : [id number] : 1955 Gender : Male Race : ORD : [id number] Procedure Date : Sep 08 2024 15:14:27 Edit Date : Oct 01 2024 11:21:25 Diagnosis: SINUS RHYTHM WITH PREMATURE ATRIAL COMPLEXES OTHERWISE NORMAL ECG Confirmed by LUKE BARNES MD ([id number]) on 10/01/2024 11:21:21 AM Test Reason : [...] QTC Calculation(Bazett) : 450 ms Calculated P [place] : 34 degrees Calculated R [place] : 93 degrees Calculated T [place] : 39 degrees NORMAL SINUS RHYTHM RIGHT AXIS LOW VOLTAGE QRS, CONSIDER PULMONARY DISEASE, PERICARDIAL EFFUSION, OR NORMAL VARIANT BORDERLINE ECG Confirmed by BRAYAN SANTOS MD ([id number]) on 10/01/2024 9:22:14 AM NAME : LOYD BLANDON PID : [id number] : 1955 Gender : Male Race : ORD : [id number] Procedure Date : Aug 27 2024 07:31:02 [...] QTC Calculation(Bazett) : 450 ms Calculated P [place] : 34 degrees Calculated R [place] : 93 degrees Calculated T [place] : 39 degrees NORMAL SINUS RHYTHM RIGHT AXIS LOW VOLTAGE QRS, CONSIDER PULMONARY DISEASE, PERICARDIAL EFFUSION, OR NORMAL VARIANT BORDERLINE ECG Confirmed by BRAYAN SANTOS MD ([id number]) on 10/01/2024 9:22:14 AM NAME : LOYD BLANDON PID : [id number] : 1955 Gender : Male Race : ORD : [id number] Procedure Date : Aug 27 2024 07:31:02 [...] : , Acquired by : ART HARRIS [facility] 12 leadOrdered By: Radiologist Radiology on 35-35-3912MPXK Healthcare Work Phone: [facility] [employer] Work Phone: Laboratory - Hematology and Cell countson 10-01-2024 Basophils/100 WBC (Bld)0.7 %[facility] HospitalEosinophils/100 WBC (Bld)2.4 %[facility] HospitalErythrocyte distribution width (RBC) [Ratio]16 %High11.5 - 15.0 %[facility] HospitalHematocrit (Bld) [Volume fraction]22.7 %Low39.0 - 51.0 %[facility] HospitalHemoglobin (Bld) [Mass/Vol]7.4 g/dLLow13.0 - 17.0 g/dLGeneral [facility] Army [facility] Hospital Lymphocytes/100 WBC (Bld)4.3 %[facility] CenterH (RBC) [Entitic mass]31.2 pg26.0 - 34.0 pgNevada Regional Medical CenterHC (RBC) [Mass/Vol]32.6 g/dL30.5 - 36.0 g/dLNevada Regional Medical CenterV (RBC) [Entitic vol]95.8 fL80.0 - 100.0 fLGeneral Leonard Wood Army Community Hospital Monocytes/100 WBC (Bld)11.3 %[facility] HospitalNeutrophils/100 WBC (Bld)80.6 %[facility] HospitalRBC (Bld) [#/Vol]2.37 10*6/uLLow4.20 - 6.00 m/uLGeneral [facility] Hospital MAGNESIUMon 57-30-5107Hvxowdgea [Mass/Vol]1.7 mg/dL1.7 - 2.3 mg/dLHolmes County Joel Pomerene Memorial HospitalMagnesium [Mass/Vol]on 70-73-3352Cydofkpnbmkrbf and review of laboratory resultsNormalCleveland ClinicNo Panel Informationon 58-46-5048Jqtgiruvq Clinic Interpretation and review of laboratory resultsAbnormalFormerly McDowell HospitalC-REACTIVE PROTEINon 53-23-7340MFI [Mass/Vol]17.7 mg/dLHighNINF - 0.9 mg/dLHolmes County Joel Pomerene Memorial HospitalCBC W Auto Differential panel (Bld)on 16-37-3081Wxdftsebn (Bld) [#/Vol]0.06 10*3/uLNINFHolmes County Joel Pomerene Memorial HospitalDifferential cell count method Nom (Bld)AutoCleveland ClinicEosinophils (Bld) [#/Vol]0.19 10*3/uLNINFHolmes County Joel Pomerene Memorial HospitalImmature granulocytes (Bld) [#/Vol]0.08 10*3/uLMorrow County Hospital Immature granulocytes/100 WBC (Bld)1 %[place] ClinicLymphocytes (Bld) [#/Vol] 0.33 10*3/uLLowOrlando ClinicMonocytes (Bld) [#/Vol]0.87 10*3/uLHighNINF [place] ClinicNeutrophils (Bld) [#/Vol]6.87 10*3/uLHolmes County Joel Pomerene Memorial HospitalNucleated RBC (Bld) [#/Vol]NINFCThe Bellevue HospitalNucleated RBC/100 WBC (Bld) [Ratio]0 %/100 WBCOrlando ClinicPlatelet mean volume (Bld) [Entitic vol]9.3 fL9.0 - 12.7 fL [place] ClinicPlatelets (Bld) [#/Vol]470 10*3/uLHighHolmes County Joel Pomerene Memorial HospitalWBC (Bld) [#/Vol]8.4 10*3/uLHolmes County Joel Pomerene Memorial HospitalCCF CBC W AUTO DIFF BLDon 20-10-4094XWQ BASOPHILS # BLD AUTO0.06NIErl[facility] DIFFERENTIAL METHOD BLDAutoNOMS [facility] EOSINOPHIL # BLD AUTO0.19[facility]IErl[facility] LYMPHOCYTES # BLD AUTO0.33[facility] HospitalF MONOCYTES # BLD AUTO0.87HighPhysicians Regional Medical CenterF NEUTROPHILS # BLD AUTO6.87[facility] NRBC # BLD AUTO<0.01NIErlanger [facility] NRBC/100 WBC BLD-RTO0/100 WBCFreeman Neosho Hospital PLATELET # BLD [id number] Hospital of [place] PMV BLD AUTO9.3 fL9.0 - 12.7 fLMid Missouri Mental Health CenterF WBC # BLD AUTO8.4NOMosaic [facility] St[facility] GRANULOCYTES # BLD AUTO0.08NIJohnson County Community HospitalM GRANULOCYTES/LEUK NFR BLD AUTO1 %NOMS HealthcareSpecimen Type: BLOOD SPECIMEN Ordering Facility: [facility] Address: [address] [address] Original Ordering Provider: DAVID BRAVOCYTOMEGALOVIRUS (CMV) DNA, QUANTITATIVE PCR, [facility] 73-13-3171YTT DNA JESSICA+probe [#/Vol][facility] CMV DNA JESSICA+probe [Log #/Vol][facility] HospitalCMV DNA JESSICA+probe Qn (P)Detected AbnormalNot DetectedHolmes County Joel Pomerene Memorial HospitalInterpretation and review of laboratory resultsAbnormalCThe Bellevue Hospitalcoba CMV is an in vitro nucleic acid amplification test for the quantitation of cytomegalovirus (CMV) DNA in human EDTA plasma. The linear range of the assay is 34.5 to 10,000,000 IU/mL (1.54 - 7.00log IU/mL). The lower limit of detection of the assay is 34.5 IU/mL. [facility] Hospitalprehensive metabolic 2000 panelon 09-30-2024 Albumin [Mass/Vol]2.4 g/dLLow3.9 - 4.9 g/dLOrlando ClinicALP [Catalytic activity/Vol]115 U/LHigh38 - 113 U/LCleveland ClinicALT [Catalytic activity/Vol] 11 U/L10 - 54 U/LCleveland ClinicAnion gap [Moles/Vol]10 mmol/L8 - 15 mmol/L [facility] HospitalAST [Catalytic activity/Vol]11 U/LLow14 - 40 U/LClevelLouis Stokes [facility] Bilirubin [Mass/Vol]0.2 mg/dL0.2 - 1.3 mg/dLHolmes County Joel Pomerene Memorial HospitalCalcium [Mass/Vol] 8.3 mg/dLLow8.5 - 10.2 mg/dLHolmes County Joel Pomerene Memorial HospitalChloride [Moles/Vol]103 mmol/L98 - 107 mmol/LCuniversity hospitals geauga medical centerand ClinicCO2 [Moles/Vol]22 mmol/L22 - 30 mmol/LCleveland [facility] Creatinine [Mass/Vol]0.88 mg/dL0.73 - 1.22 mg/dLHolmes County Joel Pomerene Memorial HospitalGFR/1.73 sq M.predicted among non-blacks MDRD (S/P/Bld) [Vol rate/Area]92 mL/min/{1.73_m2}- PINBucyrus Community HospitalComment on above:Estimated Glomerular Filtration Rate (eGFR) [...] reflect actual GFR.Glucose [Mass/Vol]85 mg/dL74 - 99 mg/dLThe [facility] on above:The [place] Diabetes Association (ADA) provides guidance for cutoff [...] Standards of Medical Care in Diabetes 2016, [place] [employer]. Diabetes Care. 2016.39(Suppl 1). Potassium [Moles/Vol]4.4 mmol/L3.7 - 5.1 mmol/LCleveland ClinicProtein [Mass/Vol]4.6 g/dLLow6.3 - 8.0 g/dLOrlando ClinicSodium [Moles/Vol]135 mmol/L Ppe257 - 144 mmol/LCleveland ClinicUrea nitrogen [Mass/Vol]11 mg/dL9 - 24 mg/dL [facility] 12 leadon 66-19-0545Ooitluctfaj Rate : 88 BPM Atrial Rate : 88 BPM P-R Interval : 118 ms QRS Duration : 86 ms Q-T Interval : 396 ms QTC Calculation(Bazett) : 479 ms Calculated P [place] : -11 degrees Calculated R [place] : 43 degrees Calculated T [place] : 24 degrees SINUS RHYTHM WITH FREQUENT PREMATURE ATRIAL COMPLEXES IN A PATTERN OF BIGEMINY NONSPECIFIC ST ABNORMALITY ABNORMAL ECG Confirmed by IGNACIO PARDO MD ([id number]) on 09/30/2024 10:51:05 PM NAME : LOYD BLANDON PID : [id number] : 1955 Gender : Male Race : ORD : [id number] Procedure Date : Sep 01 2024 14:30:15 Edit Date : Sep 30 2024 22:51:07 Diagnosis: SINUS RHYTHM WITH FREQUENT PREMATURE ATRIAL COMPLEXES IN A PATTERN OF BIGEMINY NONSPECIFIC ST ABNORMALITY ABNORMAL ECG Confirmed by IGNACIO PARDO MD ([id number]) on 09/30/2024 10:51:05 PM Test Reason : [...] QTC Calculation(Bazett) : 479 ms Calculated P [place] : -11 degrees Calculated R [place] : 43 degrees Calculated T [place] : 24 degrees SINUS RHYTHM WITH FREQUENT PREMATURE ATRIAL COMPLEXES IN A PATTERN OF BIGEMINY NONSPECIFIC ST ABNORMALITY ABNORMAL ECG Confirmed by IGNACIO PARDO MD ([id number]) on 09/30/2024 10:51:05 PM NAME : LOYD BLANDON PID : [id number] : 1955 Gender : Male Race : ORD : [id number] Procedure Date : Sep 01 2024 14:30:15 Edit Date : Sep 30 2024 22:51:07 Diagnosis: SINUS RHYTHM WITH FREQUENT PREMATURE ATRIAL COMPLEXES IN A PATTERN OF BIGEMINY NONSPECIFIC ST ABNORMALITY ABNORMAL ECG Confirmed by IGNACIO PARDO MD ([id number]) on 09/30/2024 10:51:05 PM Test Reason : BPX5 Location : 80 : G100 G100-34 Overread By : IGNACIO PARDO MD Edited By : IGNACIO PARDO MD Referred By : , Acquired by : RACHEL PEREZ [facility] 12 leadOrdered By: Radiologist Radiology on 05-81-6896YOSW [employer] Work Phone: ecG 12-LEADon [phone] Rate : 68 BPM Atrial Rate : 68 BPM P-R Interval : 118 ms QRS Duration : 80 ms Q-T Interval : 392 ms QTC Calculation(Bazett) : 416 ms Calculated P [place] : 15 degrees Calculated R [place] : 16 degrees Calculated T [place] : 17 degrees NORMAL SINUS RHYTHM WITH SINUS ARRHYTHMIA Confirmed by NEGRO SLATER MD ([id number]) on 09/30/2024 9:46:56 PM NAME : LOYD BLANDON PID : [id number] : 1955 Gender : Male Race : ORD : [id number] Procedure Date : Sep 29 2024 17:07:01 Edit Date : Sep 30 2024 21:46:57 Diagnosis: NORMAL SINUS RHYTHM WITH SINUS ARRHYTHMIA Confirmed by NEGRO SLATER MD ([id number]) on 09/30/2024 9:46:56 PM Test Reason : [...] QTC Calculation(Bazett) : 416 ms Calculated P [place] : 15 degrees Calculated R [place] : 16 degrees Calculated T [place] : 17 degrees NORMAL SINUS RHYTHM WITH SINUS ARRHYTHMIA Confirmed by NEGRO SLATER MD ([id number]) on 09/30/2024 9:46:56 PM NAME : LOYD BLANDON PID : [id number] : 1955 Gender : Male Race : ORD : [id number] Procedure Date : Sep 29 2024 17:07:01 Edit Date : Sep 30 2024 21:46:57 Diagnosis: NORMAL SINUS RHYTHM WITH SINUS ARRHYTHMIA Confirmed by NEGRO SLATER MD ([id number]) on 09/30/2024 9:46:56 PM Test Reason : Left chest pain - feels more like muscular pain, no radiation, started 3 days a Location : 519 : SMAV Overread By : NEGRO SLATER MD Edited By : NEGRO SLATER MD Referred By : , Acquired by : ALAN ISRAEL RN, [facility] HealthcareEC 12-LEADOrdered By: Radiologist Radiology on 94-67-1489ENXT [employer] Work Phone: ecg COMPLETEon 91-91-5437Ycjfaa Ceky63OKZXsqxywdsm ClinicCalculated P Frzf6nejsswbIqdaqtimc ClinicCalculated R Qlqr04dcsnnbf Barth ClinicCalculated T Jmmb56qebhnaaBevauxwlt ClinicP-R Plhnjiea224 ms Barth ClinicQRS Kkzzgqxr90 msCleveland ClinicQT Ibozjrse980 msCleveland ClinicQTC Calculation (Bazett)430 msCleveland ClinicVentricular Xedv94VCA Orlando ClinicNORMAL SINUS RHYTHM LOW VOLTAGE QRS, CONSIDER PULMONARY DISEASE, PERICARDIAL EFFUSION, OR NORMAL VARIANT BORDERLINE ECG Confirmed by NEGRO SLATER MD ([id number]) on 09/30/2024 9:47:02 PMHEART AND VASCULAR INSTITUTENAME : LOYD BLANDON PID : [id number] : 1955 Gender : Male Race : ORD : Procedure Date : Sep 29 2024 17:07:42 Edit Date : Sep 30 2024 21:47:07 Diagnosis: NORMAL SINUS RHYTHM LOW VOLTAGE QRS, CONSIDER PULMONARY DISEASE, PERICARDIAL EFFUSION, OR NORMAL VARIANT BORDERLINE ECG Confirmed by NEGRO SLATER MD ([id number]) on 09/30/2024 9:47:02 PM Test Reason : Location : [address] [place] [address] Overread By : NEGRO SLATER MD Edited By : NEGRO SLATER MD Referred By : , Acquired by : ALAN ISRAEL RN,[facility] VASCULAR INSTITUTEOrlando ClinicAtrial Gzbi76WXFKqxrltddb ClinicCalculated P Iklh00zedyefgGwtslcgoz ClinicCalculated R Scnb85zqpivxlTjptiqztr ClinicCalculated T Vkgd55zlmtovvHmlftpbcb ClinicP-R Ljxuauif743 msCleveland ClinicQRS Bxqolbpt74 msCleveland ClinicQT Jjljwqcn102 ms Barth ClinicQTC Calculation (Bazett)416 msCleveland ClinicVentricular Rate68 BPMClegalion hospital ClinicNORMAL SINUS RHYTHM WITH SINUS ARRHYTHMIA Confirmed by NEGRO SLATER MD ([id number]) on 09/30/2024 9:46:56 PMHEART AND VASCULAR INSTITUTENAME : LOYD BLANDON PID : [id number] : 1955 Gender : Male Race : ORD : [id number] Procedure Date : Sep 29 2024 17:07:01 Edit Date : Sep 30 2024 21:46:57 Diagnosis: NORMAL SINUS RHYTHM WITH SINUS ARRHYTHMIA Confirmed by NEGRO SLATER MD ([id number]) on 09/30/2024 9:46:56 PM Test Reason : Left chest pain - feels more like muscular pain, no radiation, started 3 days a Location : [facility] : SMAV Overread By : NEGRO SLATER MD Edited By : NEGRO SLATER MD Referred By : , Acquired by : ALAN ISRAEL RN,[facility] VASCULAR INSTITUTEHolmes County Joel [facility] Memorial HospitalECG01on 89-12-0790Zldvfvqwuei Rate : 71 BPM Atrial Rate : 71 BPM P-R Interval : 128 ms QRS Duration : 76 ms Q-T Interval : 396 ms QTC Calculation(Bazett) : 430 ms Calculated P [place] : 6 degrees Calculated R [place] : 19 degrees Calculated T [place] : 23 degrees NORMAL SINUS RHYTHM LOW VOLTAGE QRS, CONSIDER PULMONARY DISEASE, PERICARDIAL EFFUSION, OR NORMAL VARIANT BORDERLINE ECG Confirmed by NEGRO SLATER MD ([id number]) on 09/30/2024 9:47:02 PM NAME : LOYD BLANDON PID : [id number] : 1955 Gender : Male Race : ORD : Procedure Date : Sep 29 2024 17:07:42 Edit Date : Sep 30 2024 21:47:07 Diagnosis: NORMAL SINUS RHYTHM LOW VOLTAGE QRS, CONSIDER PULMONARY DISEASE, PERICARDIAL EFFUSION, OR NORMAL VARIANT BORDERLINE ECG Confirmed by NEGRO SLATER MD ([id number]) on 09/30/2024 9:47:02 PM Test Reason : [...] QTC Calculation(Bazett) : 430 ms Calculated P [place] : 6 degrees Calculated R [place] : 19 degrees Calculated T [place] : 23 degrees NORMAL SINUS RHYTHM LOW VOLTAGE QRS, CONSIDER PULMONARY DISEASE, PERICARDIAL EFFUSION, OR NORMAL VARIANT BORDERLINE ECG Confirmed by NEGRO SLATER MD ([id number]) on 09/30/2024 9:47:02 PM NAME : LOYD BLANDON PID : [id number] : 1955 Gender : Male Race : ORD : Procedure Date : Sep 29 2024 17:07:42 Edit Date : Sep 30 2024 21:47:07 Diagnosis: NORMAL SINUS RHYTHM LOW VOLTAGE QRS, CONSIDER PULMONARY DISEASE, PERICARDIAL EFFUSION, OR NORMAL VARIANT BORDERLINE ECG Confirmed by NEGRO SLATER MD ([id number]) on 09/30/2024 9:47:02 PM Test Reason : Location : 519 : SMAV Overread By : NEGRO SLATER MD Edited By : NEGRO SLATER MD Referred By : , Acquired by : ALAN ISRAEL RN, [facility] HospitalXwutsztexkAZR37Meubdkm By: Radiologist Radiology on 12-25-9568MKUEGeneral [facility] Hospital Work Phone: GGTon [phone] glutamyl transferase [Catalytic activity/Vol]81 U/LHigh10 - 70 U/LCleveland ClinicGamma glutamyl transferase [Catalytic activity/Vol]on 85-79-1617Unrhhambbkaiph and review of laboratory resultsAbnormalCleveland Cleveland Clinic Marymount HospitalLaboratory - Hematology and Cell countson 05-44-2050Ldfzwwutb/100 WBC (Bld)0.7 %[facility] [facility] HospitalEosinophils/100 WBC (Bld)2.3 %[facility] HospitalErythrocyte distribution width (RBC) [Ratio]16.1 % High11.5 - 15.0 %[facility] HospitalHematocrit (Bld) [Volume fraction]25.5 %Low39.0 - 51.0 %[facility] HospitalHemoglobin (Bld) [Mass/Vol]8.1 g/dLLow13.0 - 17.0 g/dL [facility] HospitalLymphocytes/100 WBC (Bld)3.9 %[facility] CenterH (RBC) [Entitic mass]31.2 pg26.0 - 34.0 pgNevada Regional Medical CenterHC (RBC) [Mass/Vol]31.8 g/dL30.5 - 36.0 g/dLNevada Regional Medical CenterV (RBC) [Entitic vol]98.1 fL80.0 - 100.0 fLGeneral Leonard Wood Army Community HospitalMonocytes/100 WBC (Bld)10.4 %[facility] HospitalNeutrophils/100 WBC (Bld) 81.7 %[facility] HospitalRBC (Bld) [#/Vol]2.6 10*6/uLLow4.20 - 6.00 m/uLGeneral Leonard Wood Army Community HospitalMAGNESIUMon 31-44-2752Dncycmkmm [Mass/Vol]1.6 mg/dLLow1.7 - 2.3 mg/dL [facility] HospitalNT PRO BNPon 53-60-3831Njezsdiqhyp peptide.B prohormone N- Terminal [Mass/Vol]493 pg/mLHighNINF - 125 pg/mLClevelLouis Stokes [place] VA Medical CenterNatriuretic peptide.B prohormone N-Terminal [Mass/Vol]on 39-13-1716Rxgbjmeamoylun and review of laboratory resultsAbnormalCuniversity hospitals geauga medical centerand [place] [facility] HospitalNo Panel Informationon 33-59-9244Knqhirsukblyoo and review of laboratory resultsAbnormal [facility] [place] [facility], Edwin ShawInterpretation and review of laboratory results AbnormalNOMS Access Hospital DaytonNOSD HealthcareTACROLIMUS/FK-506 BLOrdered By: Julia Fabian on 59-92-4395Hgwkoxkwgr (Bld) [Mass/Vol]4.8 ng/mLLow5.0 - 20.0 ng/mL [facility] HospitalComment on above:Individualized target levels for a [...] situation. Test performed by chemiluminescent immunoassay using Pairin Alinity i.Tacrolimus (Bld) [Mass/Vol]Ordered By: Julia Fabian on 13-91-0170Dmwblrxycsbogq and review of laboratory resultsAbnormalC[place] [facility] Panel Informationon 81-05-4918Vduwlnyqs Study observation (narrative)[facility] BACTERIA WND CULTon 32-84-6466ZHW BACTERIA WND CULT CULTURE, WOUND: No growth NOMS HealthcareCCF BACTERIA WND CULT GRAM STAIN: No organisms seen NOMS HealthcareCCF BACTERIA WND CULTNo Polymorphonuclear LeukocytesNOMS HealthcareOriginal Ordering Provider: GAY HICKEY HealthcareCCF BACTERIA FLD CULTon 98-51-1211YIN BACTERIA FLD CULT CULTURE, BODY FLD: No growth NOMS HealthcareCCF BACTERIA FLD CULT GRAM STAIN: No organisms seen NOMS HealthcareCCF BACTERIA FLD CULTNo Polymorphonuclear LeukocytesNOMS HealthcareCCF BACTERIA FLD CULTGram stain from primary specimenNOMS HealthcareOriginal Ordering Provider: WESTLEYVELIA WENCESLAO AUTUMN CONNELLNortheast Regional Medical CenterF BACTERIA SPEC ANAEROBE CULTon 30-91-4766RBE BACTERIA SPEC ANAEROBE CULT CULTURE, ANAEROBE: Negative for anaerobes. [facility] HealthcareOriginal Ordering Provider: KATHY ANG [facility] CenterF FLUABV+SARS-COV-2+RSV PNL RESP JESSICA+PROBEon 28-69-8292YQF FLUABV+SARS-COV-2+RSV PNL RESP JESSICA+PROBE INFLUENZA A RNA: Not detected [facility] CenterF FLUABV+SARS-COV-2+RSV PNL RESP JESSICA+PROBE INFLUENZA B RNA: Not detected [facility] FLUABV+SARS-COV-2+RSV PNL RESP JESSICA+PROBE RESPIRATORY SYNCYTIAL VIRUS (RSV) RNA: Not detected [facility] HospitalOriginal Ordering Provider: ROSALBA RUELAS Access Hospital DaytonTISS PATH BX REPORTon 29-74-3568MK DISCLAIMERNOMS HealthcareComment on above:Laboratory Developed Test (LDT) Disclaimer: Performance characteristics of immunohistochemical, immunofluorescent, and chromogenic in-situ hybridization tests have been determined by the performing laboratory within [facility]'s [facility] Pathology and Laboratory Medicine Department ([facility], [facility], [facility], [facility], [facility], [facility], or [facility]) in a manner consistent with CLIA requirements. [...] REPORTNOMS HealthcareComment on above:Surgical Pathology Report Case: [id number] Authorizing Provider: Thomas Khan MD Collected: 09/02/2024 11:43 AM Ordering Location: [place] [address] Received: 09/02/2024 05:29 PM Pathologist: Cali Breen MD Specimen: Colon, Descending, Polyp, descending colon polyp; r/o adenoma [facility] FINAL DIAGNOSISNOMS HealthcareComment on above:Descending colon polyp, biopsy: - Polypoid granulation tissue. - Separate fragment of colonic mucosa with no diagnostic abnormality. - Negative for dysplasia. JEL 09/03/2024 at 1311 EDT [facility] FINAL PERFORMING LABHEBER VALLEY [facility]ENTER HealthcareComment on above:Diagnostic interpretation performed at: [facility], [address] [place] [address] CLIA# [id number] [employer] Professor: Nakul Grimm MD [facility] GROSS DESCRIPTIONNOSD HealthcareComment on above:A. Colon, Descending, Polyp Received in formalin are two pieces of bazzi, soft tissue aggregating to 0.5 x 0.2 x 0.1 cm. Totally submitted in one cassette. Gross examination performed at [facility], [address] [place] [address] September 02, 2024 9:30 PM Specimen Type: TISSUE SPECIMEN Ordering Facility: [facility] Address: [address] [place] [address] Original Ordering Provider: THOMAS CORTEZTrinity Health DISCLAIMER NOMS HealthcareComment on above:Laboratory Developed Test (LDT) Disclaimer: Performance characteristics of immunohistochemical, immunofluorescent, and chromogenic in-situ hybridization tests have been determined by the performing laboratory within [facility]'s [facility] Pathology and Laboratory Medicine Department ([facility], [facility], [facility], [facility], [facility], [facility], or [facility]) in a manner consistent with CLIA requirements. One or more of these tests may not have been cleared or approved by the FDA. [facility] is regulated under CLIA as qualified to perform high- complexity testing. These tests are used for clinical purposes. These should not be regarded asinvestigational or for research. Positive and negative controls stain appropriately. [facility] CASE REPORTNOSD HealthcareComment on above:Surgical Pathology Report Case: [id number] Authorizing Provider: Giana Kingston MD Collected: 08/31/2024 09:11 AM Ordering Location: [place] [address] Received: 09/02/2024 01:36 PM Pathologist: Raymond Carranza MD Specimen: Colon, Transverse, Polyp, r/o adenoma [facility] FINAL DIAGNOSISNOSD HealthcareComment on above:A. Transverse colon, polypectomy: - Tubular adenoma. at 1252 EDT [facility] FINAL PERFORMING LABHE[facility]LEY [facility] HealthcareComment on above:Diagnostic interpretation performed at: [facility], [address] [place] [address] CLIA# [id number] [employer] Professor: Magali Jane MD [facility] GROSS DESCRIPTIONNOSD HealthcareComment on above:A. Colon, Transverse, Polyp Received in formalin is one piece of bazzi, soft tissue measuring 0.4 x 0.3 x 0.1 cm. Totally submitted in one cassette. Gross examination performed at [facility], [address] [place] [address] AMS September 02, 2024 4:28 PM Specimen Type: TISSUE SPECIMEN Ordering Facility: [facility] Address: [address] [place] [address] Original Ordering Provider: GIANA KINGSTONJeanes HospitalNo Panel Informationon 18-68-8479AHD BACTERIA BLD CULT CULTURE, BLOOD: No growth 5 days NOMS HealthcareOriginal Ordering Provider: CALI Carmen VICTOR HUGOSpanish Fork Hospital PARACENTESIS (POC) DDI USE ONLYon 52-33-9184Vnuiosdhd Kntgte58ud Approving, but needs appt for additional refills.NormalUnHighland District HospitalCBC (INCLUDES DIFF/PLT)on 63-17-9063Alxsazwpb (Bld) [#/Vol]0.043 10*3/uLNormal0-200Quest DiagnosticsComment on above:Order Comment: FASTING:NO FASTING: NOPerformed By: #### [id number] #### [facility] [address], [address] [place] [address] Bone Tender: Roland Duggan MDBasophils/100 WBC (Bld)0.7 %NormalQuest DiagnosticsComment on above:Order Comment: FASTING:NO FASTING: NOPerformed By: #### 3599 #### [facility] [address], [address] [place] [address] Bone Tender: Roland Duggan MDEosinophils (Bld) [#/Vol]0.153 10*3/uLNormal 15-500Quest DiagnosticsComment on above:Order Comment: FASTING:NO FASTING: NOPerformed By: #### [id number] #### [facility] of [place] [address] Bone Tender: Roland Duggan MDEosinophils/100 WBC (Bld)2.5 %NormalQuest DiagnosticsComment on above:Order Comment: FASTING:NO FASTING: NOPerformed By: #### [id number] #### [facility] of [address], [address] [place] [address] Bone Tender: Roland Duggan MDErythrocyte distribution width (RBC) [Ratio] 13.9 %Ywoqeb16.0-15.0Quest DiagnosticsComment on above:Order Comment: FASTING:NO FASTING: NOPerformed By: #### [id number] #### [facility] of [place] [address] Bone Tender: Roland Duggan MDHematocrit (Bld) [Volume fraction]32.7 %Low 38.5-50.0Quest DiagnosticsComment on above:Order Comment: FASTING:NO FASTING: NOPerformed By: #### [id number] #### [facility] of [place] [address] Bone Tender: Roland Duggan MDHemoglobin (Bld) [Mass/Vol]11.2 g/dLLow 13.2-17.1Quest DiagnosticsComment on above:Order Comment: FASTING:NO FASTING: NOPerformed By: #### [id number] #### [facility] of [address], [address] [place] [address] Bone Tender: Roland Duggan MDLymphocytes (Bld) [#/Vol]0.342 10*3/uLLow 850-3900Quest DiagnosticsComment on above:Order Comment: FASTING:NO FASTING: NOPerformed By: #### [id number] #### [facility] of [address], [address] [place] [address] Bone Tender: Roland Duggan MDLymphocytes/100 WBC (Bld)5.6 %NormalQuest DiagnosticsComment on above:Order Comment: FASTING:NO FASTING: NOPerformed By: #### [id number] #### [facility] [address], [address] [place] [address] Bone Tender: Roland REYNOLDSCH (RBC) [Entitic mass]33.8 tdOrtc56.0-33.0 Quest DiagnosticsComment on above:Order Comment: FASTING:NO FASTING: NOPerformed By: #### [id number] #### [facility] [place] [address] Bone Tender: Roland REYNOLDSCHC (RBC) [Mass/Vol]34.3 g/kFYgfhbs65.0-36.0 Quest DiagnosticsComment on above:Order Comment: FASTING:NO FASTING: NOResult Comment: For adults, a slight decrease in the calculated MCHC value (in the range of 30 to 32 g/dL) is most likely not clinically significant; however, it should be interpreted with caution in correlation with other red cell parameters and the patient's clinical condition.Performed By: #### [id number] #### [facility] [place] [address] Bone Tender: Roland Duggan MDMCV (RBC) [Entitic vol]98.8 pLWnhojq44.0-100.0 [facility] DiagnosticsComment on above:Order Comment: FASTING:NO FASTING: NOPerformed By: #### [id number] #### [facility] [address], [address] [place] [address] Bone Tender: Roland Duggan MDMonocytes (Bld) [#/Vol]0.885 10*3/uLNormal 200-950Quest DiagnosticsComment on above:Order Comment: FASTING:NO FASTING: NOPerformed By: #### [id number] #### [facility] [place] [address] Bone Tender: Roland Duggan MDMonocytes/100 WBC (Bld)14.5 %NormalQuest DiagnosticsComment on above:Order Comment: FASTING:NO FASTING: NOPerformed By: #### [id number] #### [facility] of [address], [address] [place] [address] Bone Tender: Roland Tylerutrophilbelem (Bld) [#/Vol]4.679 10*3/uLNormal 1500-7800Quest DiagnosticsComment on above:Order Comment: FASTING:NO FASTING: NOPerformed By: #### [id number] #### [facility] of [address], [address] [place] [address] Bone Tender: Roland Duggan MDNeutrophils/100 WBC (Bld)76.7 %NormalQuest DiagnosticsComment on above:Order Comment: FASTING:NO FASTING: NOPerformed By: #### [id number] #### [facility] of [address], [address] [place] [address] Bone Tender: Roland Duggan MDPlatelet mean volume (Bld) [Entitic vol]10.1 fLNormal7.5-12.5Quest DiagnosticsComment on above:Order Comment: FASTING:NO FASTING: NOPerformed By: #### [id number] #### [facility] of [address], [address] [place] [address] Bone Tender: Roland Duggan MDPlatelets (Bld) [#/Vol]147 10*3/uLNormal 140-400Quest DiagnosticsComment on above:Order Comment: FASTING:NO FASTING: NOPerformed By: #### [id number] #### [facility] of [address], [address] [place] [address] Bone Tender: Roland Duggan MDRBC (Bld) [#/Vol]3.31 10*6/uLLow4.20-5.80Quest DiagnosticsComment on above:Order Comment: FASTING:NO FASTING: NOPerformed By: #### [id number] #### [facility] of [address] [place] [address] Bone Tender: Roland KELLERBC (Bld) [#/Vol]6.1 10*3/uLNormal3.8-10.8 [facility] DiagnosticsComment on above:Order Comment: FASTING:NO FASTING: NOPerformed By: #### [id number] #### [facility] [address], [address] [place] [address] Bone Tender: Roland Duggan MDCT BIOPSY VERTEBRA OR FEMURon 08-06-2024* * *Final Report* * * DATE OF EXAM: Aug 06 2024 12:35PM [facility] 2013 - CT [...] with administration of agent, ends when continuous ywbv-jg-ftdi time ends): 26 minutes. f) Patient monitoring:I [...] DESCRIBED. Attending Radiologist: Dr. Troy Franz MD Instrument Technician Helper: Jeovany Li MD The procedure was performed by the the malt specifications control assistant, and the attending radiologist personally supervised the entire procedure. Regeneration Operator: PSCPatricia Transcribe Date/Time: Aug 06 2024 12:41P Dictated by : JEOVANY LI MD This examination was interpreted and the report reviewed and electronically signed by: TROY FRANZ MD on Aug 06 2024 1:10PM EST [id number]^AGFA_IDC^SI^ACNCCFRadiology, Radiologist, - 08/06/2024 * * *Final Report* * * DATE OF EXAM: Aug 06 2024 12:35PM [facility] 2013 - CT [...] with administration of agent, ends when continuous ejey-xi-avog time ends): 26 minutes. f) Patient monitoring:I [...] DESCRIBED. Attending Radiologist: Dr. Troy Franz MD Instrument Technician Helper: Jeovany Li MD The procedure was performed by the the malt specifications control assistant, and the attending radiologist personally supervised the entire procedure. Regeneration Operator: FLAGET MEMORIAL HOSPITALPatricia Transcribe Date/Time: Aug 06 2024 12:41P Dictated by : JEOVANY LI MD This examination was interpreted and the report reviewed and electronically signed by: TROY FRANZ MD on Aug 06 2024 1:10PM EST [id number]^AGFA_IDC^SI^ACN [facility] HealthcareRadiology Study observation (narrative)[facility] HealthcareCT BIOPSY VERTEBRA OR FEMUROrdered By: Radiologist Radiology on 53-69-0389WKVJ Healthcare Work Phone: ccf CMP (CMP) (FOR REMOTE [facility] USE)on 79-91-1044Wypxgbc [Mass/Vol]2.4 g/dLLow3.4 - 5.0 g/dLNOSD HealthcareALBUMIN GLOBULIN RATIO0.5NOSD HealthcareALP [Catalytic activity/Vol]149 U/LHigh46 - 116 U/LNOMS [...] HealthcareGlobulin (S) [Mass/Vol]4.4 g/dLNOMS Healthcare Glucose [Mass/Vol]225 mg/zOZwox00 - 106 mg/dLNOSD HealthcareInterpretation and review of laboratory resultsAbnormalNOMS HealthcarePotassium [Moles/Vol]4.8 mmol/L3.5 - 5.1 mmol/LNOMS HealthcareProtein [Mass/Vol]6.8 g/dL6.4 - 8.2 g/dL NOMS HealthcareSodium [Moles/Vol]130 mmol/GBeu107 - 145 mmol/LNOMS HealthcareTBH EGFR-NON AF RJVYQIGY53Rrd>=60 mL/min/1.73m 2NOMS HealthcareUrea nitrogen [Mass/Vol]17 mg/dL7.0 - 18.0 mg/dLNOSD HealthcareUrea nitrogen/Creatinine [Mass ratio]12.8 mg/mgNOMS HealthcareCLINISYNCNHARPER COUNTY COMM[facility] HealthcareCCF CMP (CMP) (FOR REMOTE [facility] USE)on 39-37-9817Ygbzifx [Mass/Vol]2.6 g/dLLow3.4 - 5.0 g/dLNOSD Healthcare ALBUMIN GLOBULIN RATIO0.6NOSD HealthcareALP [Catalytic activity/Vol]143 U/LHigh 46 - 116 [...] 2NOMS HealthcareGlobulin (S) [Mass/Vol]4.7 g/dLNOMS HealthcareGlucose [Mass/Vol]164 mg/jSEcag66 - 106 mg/dL NOMS HealthcareInterpretation and review of laboratory resultsAbnormalNOMS HealthcarePotassium [Moles/Vol]5 mmol/L3.5 - 5.1 mmol/LNOMS HealthcareProtein [Mass/Vol]7.3 g/dL6.4 - 8.2 g/dLNOMS HealthcareSodium [Moles/Vol]132 mmol/LLow 136 - 145 mmol/LNOMS HealthcareTBH EGFR-NON AF CUTVTAFJ55Idl>=60 mL/min/1.73m 2 NOMS HealthcareUrea nitrogen [Mass/Vol]23 mg/dLHigh7.0 - 18.0 mg/dLNOSD HealthcareUrea nitrogen/Creatinine [Mass ratio]11.9 mg/mgNOMS Healthcare CLINISYNCNOMS HealthcareUS paracentesis abd w/imageon 79-75-1673EX paracentesis abd w/imageTHE [facility] [address] Ultrasound Report Signed Patient: Loyd Blandon MR#: [id number] 66 : 1955 Acct:[id number] Age/Sex: 68 / M ADM Date: 07/30/24 Loc: Room: Type: [facility] Attending Dr: Irena Johnson MD Ordering Provider: Irena Johnson MD Date of Service: 07/30/24 US/US paracentesis abd w/image: K70.31 Copies to: Irena Johnson MD ULTRASOUND-GUIDED PARACENTESIS HISTORY: Abdominal distention. FINDINGS: Anechoic free intraperitoneal fluid identified. TECHNIQUE: Informed consent was obtained. The skin entry site was prepped and draped in sterile fashion with local lidocaine administered. 5 Albanian Yueh centesis catheter was administered into the deepest fluid collection with ultrasound guidance. Return of fluid confirms adequate localization. 4.45L of straw-colored clear fluid withdrawn. The patient expressed no immediate complications and was discharged in satisfactory condition. US/US paracentesis abd w/image IMPRESSION: SUCCESSFUL ULTRASOUND-GUIDED PARACENTESIS. Impression dictated by: Albin [place]ille[place] M.D.07/30/2024 1:21 PM Dictation Location: [place] [address] Tech: Ana So Transcribed By: ROLAND 07/30/24 1321 Dictated By: Albin [place] DO 07/30/24 1315 Signed By: 07/30/24 1321[facility] Physician Rzufq69ox 31-20-204409Pxvbszrrk, but needs appt for additional refills.NormalKindred Hospital DaytonCCF CMP (CMP) (FOR REMOTE [facility] USE)on 35-87-4139Sdedjqn [Mass/Vol]2.5 g/dLLow3.4 - 5.0 g/dLNOMS HealthcareALBUMIN GLOBULIN [...] [Mass/Vol]6.8 g/dL6.4 - 8.2 g/dLNOMS HealthcareSodium [Moles/Vol]133 mmol/ZKfz212 - 145 mmol/LNOMS HealthcareTBH EGFR-NON AF SATUPFLA70Hmr>=60 mL/min/1.73m 2NOMS HealthcareUrea nitrogen [Mass/Vol]23 mg/dLHigh7.0 - 18.0 mg/dLNOMS HealthcareUrea nitrogen/Creatinine [Mass ratio]15.9 mg/mgNOSD HealthcareCLINISYNCNOMS HealthcareBODY FLUID CELL COUNTOrdered By: Vonnie Parada on 48-85-0023Vfqayic (Unsp spec)ClearClearC[place] ClinicClarity (Unsp spec)Not IndicatedClearChighland district hospital ClinicColor (Body fld)YellowYellow [facility] HospitalColor (Body fld)Not IndicatedYellowProMedica Defiance Regional Hospital Manual cnt (Body fld) [#/Vol]/uLNINF - 2000 /uLOhioHealth Doctors Hospitalpecimen source Nom (Body fld)Ascites FluidAdena Fayette Medical Center Manual cnt (Body fld) [#/Vol]71 /uL NINF - 1000 /uLSelect Medical [place] Clinic Rehabilitation Hospital, Edwin ShawGuidance for paracentesis and insertion of tube of PeritoneumOrdered By: Elsy Johnson on 50-46-4783[facility] Work Phone: radiology Study observation (narrative)[facility] Work Phone: MANUAL DIFFERENTIAL, BODY FLUIDOrdered By: Billie Wilson on 63-74-2732Vrpm Total Body Mhqix065lhsvd countedHolmes County [facility] Hospital Interpretation and review of laboratory resultsAbnormalCleveland ClinicLymph%, BF72 %High18 - 36 %Barth ClinicMacro%, BF11 %Low64 - 80 %[facility] Meso%, BF1 %0 - 2 %Barth ClinicMono%, BF11 %Barth ClinicNeut%, BF5 %High 0 - 1 %[facility] HospitalClegalion hospital ClinicUS PARACENTESIS (POC) DDI USE ONLYon 89-12-0170Cctnilngn Qhugvd92qh 16-07-690041Wiostbhyh, but needs appt for additional refills.NormalKindred Hospital DaytonCoagulation Profile on 82-43-9436vENU Coag (Bld) [Time]32.0 pFdlxmb44.1-36.5The [facility] Physician GroupComment on above:Order Comment: STAT FOR PARAResult Comment: A hematocrit value greater than 55% may lead to inaccurate results in coagulation testing. Patients having hematocrit values >55% require a special collection tube for coagulation studies. Please contact the laboratory at [phone] for redraw instructions. PERFORMED BY: [place] [address] PATHOLOGIST FINISHING POWDER 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 JEAN SOLIS M.D.Performed By: #### PP, PLT #### [facility] [address] [place] [address] USAINR Coag (PPP) [Relative time]1.2 {INR}NormalThe [facility] Physician [facility] [...] - 4.5Performed By: #### PP, PLT #### [facility] [address] [place] [address] USAPT Coag (PPP) [Time]13.6 sHigh9.0-12.9The [facility] Len[facility] Physician GroupComment on above:Order Comment: STAT FOR PARAResult Comment: A hematocrit value greater than 55% may lead to inaccurate results in coagulation testing. Patients having hematocrit values >55% require a special collection tube for coagulation studies. Please contact the laboratory at [phone] for redraw instructions.Performed By: #### PP, PLT #### [facility] [address] [place] [address] USAINR in Platelet poor plasma by Coagulation assayOrdered By: Irena Johnson on 88-75-1438DET Coag (PPP) [Relative time]INR in Platelet poor plasma by Coagulation assayMercy HealthComment on above:INR Therapeutic Range A) Pre- and Peroperative OAT started two weeks before surgery. NOT HIP SURGERY: 1.5 - 2.5 HIP SURGERY: 2 - 3B) Primary and secondary prevention of venous THROMBOSIS: 2 - 3C) Active venous thrombosis, pulmonary embolismand prevention of recurrent venous thrombosis: 2 - 3D) Prevention of arterial thromboembolismincluding patients with mechanical heart valves: 3 - 4.5Platelet Counton 23-63-6221Uyxsxzflb (Bld) [#/Vol]124 10*3/qEZxn594-083Pbp [facility] Physician GroupComment on above:Order Comment: STAT FOR PARAResult Comment: PERFORMED BY: [place] [address] PATHOLOGIST FINISHING POWDER 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 JEAN SOLIS M.D.Performed By: #### PP, PLT #### [facility] [address] [place] [address] USAPlatelets Auto (Bld) [#/Vol]Ordered By: Irena Johnson on 63-43-5033Htcuokagb (Bld) [#/Vol]Platelets [#/volume] in Blood by Automated qkkawXfj695-533BqkdumutvMercy HealthProthrombin time (PT)Ordered By: Irena Johnson on 48-07-4076UI Coag (PPP) [Time]Prothrombin time (PT)High9.0-12.9 Mercy HealthComment on above:A hematocrit value greater than 55% may lead to inaccurate results in coagulation testing. Patientshaving hematocrit values >55% require a special collection tube for coagulation studies. Please contact the laboratory at [phone] for redraw instructions. US paracentesis abd w/imageon 58-02-4048YG paracentesis abd w/imageTHE [facility] Main [place] [address] [place] [address] Ultrasound Report Signed Patient: Loyd Blandon MR#: [id number] 66 : 1955 Acct:[id number] Age/Sex: 68 / M ADM Date: 06/19/24 Loc: Room: Type: [facility] Attending Dr: Irena Johnson MD Ordering [...] and local anesthesia with lidocaine, a 5 Albanian centesis catheter was advanced into the peritoneal cavity. Approximately 4700 mL of ascites was drained. The catheter was removed. There were no immediate complications. US/US paracentesis abd w/image IMPRESSION: SUCCESSFUL ULTRASOUND-GUIDED PARACENTESIS. Impression dictated by: Morales Alvarez Jr., D.OAshley06/19/2024 3:34 PM Dictation Location: [place] [address] Tech: Blanca Maria Isabel Transcribed By: [facility] 06/19/24 153 Dictated By: Morales Alvarez Jr, DO 06/19/24 1534 Signed By: 06/19/24 1534[facility] Physician GroupaPTT in Platelet poor plasma by Coagulation assayOrdered By: Irena Johnson on 06-13-8685uORK Coag (PPP) [Time] Activated partial thromboplastin time (aPTT) in platelet poor plasma by coagulation a25.1-36.5FSelect Medical TriHealth Rehabilitation HospitalComment on above:A hematocrit value greater than 55% may lead to inaccurate results in coagulation testing. Patientshaving hematocrit values >55% require a special collection tube for coagulation studies. Please contact the laboratory at [phone] for redraw instructions.ALL CBC WITH AUTO DIFFon 74-34-4505Wpjorvfkjxd distribution width (RBC) [Ratio]14.6 %11.0 - 15.0 %[facility] HospitalHematocrit (Bld) [Volume fraction]34.7 %Low42.0 - 54.0 %[facility] HospitalHemoglobin (Bld) [Mass/Vol]11.8 g/dLLow14.0 - 18.0 g/dLGeneral Leonard Wood Army Community HospitalInterpretation and review of laboratory resultsAbnormalParkland Health Center (RBC) [Entitic mass]34.1 lsEewa44.9 - 34.0 pg [facility] CenterHC (RBC) [Mass/Vol]34 g/dL29.9 - 35.2 g/dLNevada Regional Medical CenterV (RBC) [Entitic vol]100.3 fWCwgu82.0 - 94.0 fLGeneral Leonard Wood Army Community HospitalPlatelet mean volume (Bld) [Entitic vol]10.8 fL9.5 - 13.5 fLEllis Fischel Cancer Center YJO631DerSHWOEllis Fischel Cancer Center RBC3.46LowEllis Fischel Cancer Center WBC4.3[facility] HospitalCLINISYNCNCarondelet Health Cervical spine WO and W contrast Syed [...] are normal in appearance. DIVISION OF RADIOLOGYProvider, [facility] [place] - 06/08/2024 * * *Final Report* * [...] and assume there are 5 lumbar-type vertebrae. Regeneration Operator: PSCB Transcribe Date/Time: Jun 08 2024 3:55P Dictated by : BRENDA MUNOZ MD This examination was interpreted and the report reviewed and electronically signed by: BRENDA MUNOZ MD on Jun 08 2024 4:10PM [facility] Lumbar spine WO and W contrast Syed 06-08-2024* * *Final Report* * * DATE OF EXAM: Jun 08 2024 2:06PM [facility] 0304 - MRI LUMBAR SPINE WO/W IVCON [...] are normal in appearance. DIVISION OF RADIOLOGYProvider, [facility] - 06/08/2024 * * *Final Report* * [...] and assume there are 5 lumbar-type vertebrae. Regeneration Operator: [employer] Transcribe Date/Time: Jun 08 2024 3:55P Dictated by : BRENDA MUNOZ MD This examination was interpreted and the report reviewed and electronically signed by: BRENDA MUNOZ MD on Jun 08 2024 4:10PM EST [facility] HospitalRadiology Study observation (narrative)[facility] Thoracic spine WO and W contrast Syed 06-08-2024* * *Final Report* * * DATE OF EXAM: Jun 08 2024 2:06PM [facility] 0326 - MRI THORACIC SPINE WO/W IVCON [...] are normal in appearance. DIVISION OF RADIOLOGYProvider, [facility] - 06/08/2024 * * *Final Report* * [...] and assume there are 5 lumbar-type vertebrae. Regeneration Operator: PSCB Transcribe Date/Time: Jun 08 2024 3:55P Dictated by : BRENDA MUNOZ MD This examination was interpreted and the report reviewed and electronically signed by: BRENDA MUNOZ MD on Jun 08 2024 4:10PM [facility] CERVICAL SPINE WO/W IVCONon 06-08-2024* * *Final Report* * * DATE OF EXAM: Jun 08 2024 2:06PM [facility] 0298 - MRI CERVICAL SPINE WO/W IVCON [...] and assume there are 5 lumbar-type vertebrae. Regeneration Operator: [facility] Transcribe Date/Time: Jun 08 2024 3:55P Dictated by : BRENDA MUNOZ MD This examination was interpreted and the report reviewed and electronically signed by: BRENDA MUNOZ MD on Jun 08 2024 4:10PM EST [id number]^AGFA_IDC^SI^ACNCCFRadiology, Radiologist, - 06/08/2024 * * *Final Report* * * DATE OF EXAM: Jun 08 2024 2:06PM [facility] 0298 - MRI CERVICAL SPINE WO/W IVCON [...] and assume there are 5 lumbar-type vertebrae. Regeneration Operator: SRINI Transcribe Date/Time: Jun 08 2024 3:55P Dictated by : BRENDA MUNOZ MD This examination was interpreted and the report reviewed and electronically signed by: BRENDA MUNOZ MD on Jun 08 2024 4:10PM EST [id number]^AGFA_IDC^SI^ACN [facility] LUMBAR SPINE WO/W IVCONon 06-08-2024* * *Final [...] and assume there are 5 lumbar-type vertebrae. Regeneration Operator: SRINI Transcribe Date/Time: Jun 08 2024 3:55P Dictated by : BRENDA MUNOZ MD This examination was interpreted and the report reviewed and electronically signed by: BRENDA MUNOZ MD on Jun 08 2024 4:10PM EST [id number]^AGFA_IDC^SI^ACNCCFRadiology, Radiologist, - 06/08/2024 * * *Final Report* * * DATE OF EXAM: Jun 08 2024 2:06PM [facility] 0304 - MRI LUMBAR SPINE WO/W IVCON [...] and assume there are 5 lumbar-type vertebrae. Regeneration Operator: [facility] Transcribe Date/Time: Jun 08 2024 3:55P Dictated by : BRENDA MUNOZ MD This examination was interpreted and the report reviewed and electronically signed by: BRENDA MUNOZ MD on Jun 08 2024 4:10PM EST [id number]^AGFA_IDC^SI^ACN [facility] THORACIC SPINE WO/W IVCONon 06-08-2024* * *Final Report* * * DATE OF EXAM: Jun 08 2024 2:06PM [facility] 0326 - MRI THORACIC SPINE WO/W IVCON [...] and assume there are 5 lumbar-type vertebrae. Regeneration Operator: [facility] Transcribe Date/Time: Jun 08 2024 3:55P Dictated by : BRENDA MUNOZ MD This examination was interpreted and the report reviewed and electronically signed by: BRENDA MUNOZ MD on Jun 08 2024 4:10PM EST [id number]^AGFA_IDC^SI^ACNCCFRadiology, Radiologist, - 06/08/2024 * * *Final Report* * * DATE OF EXAM: Jun 08 2024 2:06PM [facility] 0326 - MRI THORACIC SPINE WO/W IVCON [...] and assume there are 5 lumbar-type vertebrae. Regeneration Operator: [employer] Transcribe Date/Time: Jun 08 2024 3:55P Dictated by : BRENDA MUNOZ MD This examination was interpreted and the report reviewed and electronically signed by: BRENDA MUNOZ MD on Jun 08 2024 4:10PM EST [id number]^AGFA_IDC^SI^ACN [facility] Panel InformationOrdered By: Radiologist Radiology on 70-45-9081XNTCGeneral Leonard Wood Army Community Hospital Work Phone: No Panel Informationon 80-02-1859OCSHVPJVRQ: 1. Suboptimal examination due to motion artifact. [...] and assume there are 5 lumbar-type vertebrae. Regeneration Operator: [facility] Transcribe Date/Time: Jun 08 2024 3:55P Dictated by : BRENDA MUNOZ MD This examination was interpreted and the report reviewed and electronically signed by: BRENDA MUNOZ MD on Jun 08 2024 4:10PM [facility] DIVISION OF RADIOLOGYRadiology Study observation (narrative)[facility] Radiology Study observation (narrative)[facility]OMS HealthcareCCF CMP (CMP) (FOR REMOTE [facility] USE)on 53-39-0856Qubpgyk [Mass/Vol]2.3 g/dLLow3.4 - 5.0 g/dLNOSD Healthcare ALBUMIN GLOBULIN RATIO0.5NOSD HealthcareALP [Catalytic activity/Vol]128 U/LHigh 46 - 116 [...] 2NOMS HealthcareGlobulin (S) [Mass/Vol]4.7 g/dLNOMS HealthcareGlucose [Mass/Vol]245 mg/pNWhnf01 - 106 mg/dL [facility] HealthcareInterpretation and review of laboratory resultsAbnormalNOMS HealthcarePotassium [Moles/Vol]5.1 mmol/L3.5 - 5.1 mmol/LNOMS HealthcareProtein [Mass/Vol]7 g/dL6.4 - 8.2 g/dLNOMS HealthcareSodium [Moles/Vol]128 mmol/NNhm599 - 145 mmol/LNOMS HealthcareTBH EGFR-NON AF YVZGKYOM23Hsi>=60 mL/min/1.73m 2NOMS HealthcareUrea nitrogen [Mass/Vol]26 mg/dLHigh7.0 - 18.0 mg/dLNOMS Healthcare Urea nitrogen/Creatinine [Mass ratio]14.9 mg/mgNOMS HealthcareCLINISYNCNOMS HealthcareNo Panel InformationOrdered By: Radiologist Radiology on 06-04-2024 [facility] [employer] Work Phone: US PELVIS LTDon 06-04-2024* * *Final Report* * * DATE OF EXAM: Jun 04 2024 11:39AM [facility] [employer] / PROCEDURE REASON: Unilateral inguinal hernia without [...] No fat or bowel containing inguinal hernia. Regeneration Operator: [facility]ITALPatricia Transcribe Date/Time: Jun 04 2024 1:11P Dictated by : SONNY TRAN MD This examination was interpreted and the report reviewed and electronically signed by: SONNY TRAN MD on Jun 04 2024 2:55PM EST [id number]^AGFA_IDC^SI^ACNCCFRadiology, Radiologist, - 06/04/2024 * * *Final Report* * * DATE OF EXAM: Jun 04 2024 11:39AM [facility] [employer] / PROCEDURE REASON: Unilateral inguinal hernia [...] No fat or bowel containing inguinal hernia. Regeneration Operator: SRINI Transcribe Date/Time: Jun 04 2024 1:11P Dictated by : SONNY TRAN MD This examination was interpreted and the report reviewed and electronically signed by: SONNY TRAN MD on Jun 04 2024 2:55PM EST [id number]^AGFA_IDC^SI^ACN [facility] HealthcareRadiology Study observation (narrative)[facility] HealthcareUS Pelvis limitedon 80-43-3459MKXXJCKMWC: Extension of pelvic ascites through the inguinal canal and distally along the spermatic cord. No fat or bowel containing inguinal hernia. Regeneration Operator: SRINI Transcribe Date/Time: Jun 04 2024 1:11P Dictated by : SONNY TRAN MD This examination was interpreted and the report reviewed and electronically signed by: SONNY TRAN MD on Jun 04 2024 2:55PM [facility] DIVISION OF RADIOLOGY* * *Final Report* * [...] LIGAMENT: Normal in appearance. DIVISION OF RADIOLOGYProvider, [facility] - 06/04/2024 * * *Final Report* * [...] No fat or bowel containing inguinal hernia. Regeneration Operator: [facility] Transcribe Date/Time: Jun 04 2024 1:11P Dictated by : SONNY TRAN MD This examination was interpreted and the report reviewed and electronically signed by: SONNY TRAN MD on Jun 04 2024 2:55PM [facility] HospitalRadiology Study observation (narrative)[facility] HospitalBODY FLUID CELL COUNTOrdered By: Billie Wilson on 94-12-3645XUA Manual cnt (Body fld) [#/Vol]/uLNINF - 2000 /uLOhioHealth Doctors Hospitalpecimen source Nom (Body fld) AbdomenAdena Fayette Medical Center Manual cnt (Body fld) [#/Vol]119 /uLNINF - 1000 /uL [facility] BODY FLUID CELL COUNTon 65-13-5560AHS CLARITY SPECSlightly CloudyAbnormalClearFreeman Neosho Hospital COLOR FLDYellowYelPenn Presbyterian Medical Center RBC # FLD MANUAL<2000NINF - 2000 /uLNOMS HealthcareCCF SPECIMEN SOURCE FLD AbdomenFreeman Neosho Hospital WBC # FLD [id number] /uLNINF - 1000 /[facility] Specimen Type: FLUID SPECIMEN Ordering Facility: [facility] Address: [address] [place] [address] Original Ordering Provider: KATHY VAUGHNCLINISYNCGuidance for paracentesis and insertion of tube of Peritoneumon 55-04-7218Knvi: Loyd Blandon Patient presents for a Paracentesis. Indication for Procedure: Ascites INFORMED CONSENT Loyd Blandon Medical Record: [id number] Procedure: Paracentesis The risks, benefits and anticipated [...] Vaughn APRN.CNP Procedure performed by Kathy Vaughn APRN.QUALITY CONTROL ASSOCIATE Medication: 2% Lidocaine 10cc The patient was [...] tube of PeritoneumOrdered By: Kathy Vaughn on 99-62-5843Ebzjzfhiq Clinic Work Phone: Radiology Study observation (narrative)[facility] Work Phone: Laboratory - Specimen informationOrdered By: Billie Wilson on 35-81-9279Dthzpng (Unsp spec)Slightly CloudyAbnormalClearCleveland ClinicColor (Body fld)YellowYellowCleveland ClinicNo Panel Informationon 45-81-9784Gzqpmipmnyxgzz and review of laboratory resultsAbMunising Memorial Hospital NOMS HealthcareUS PARACENTESIS (POC) DDI USE ONLYon 67-56-6086Nskmjglgx ClinicXR Chest PA and Lateralon 48-39-6770PLNKJDVSBH: Moderate to large right-sided pleural effusion, increased in size compared to the prior chest radiograph exam. Adjacent opacity at the right lung base is probably due to atelectasis although superimposed pneumonia/aspiration is possible. Trace left pleural effusion. Regeneration Operator: PSCB Transcribe Date/Time: May 23 2024 1:39P Dictated by : MORALES CARROLL MD This examination was interpreted and the report reviewed and electronically signed by: MORALES CARROLL MD on May 23 2024 1:41PM [facility] DIVISION OF RADIOLOGY* * *Final Report* * [...] Clips overlie the upper abdomen. DIVISION OF RADIOLOGYProvijoint township district [facility], [facility] - 05/23/2024 * * *Final Report* * [...] pneumonia/aspiration is possible. Trace left pleural effusion. Regeneration Operator: SRINI Transcribe Date/Time: May 23 2024 1:39P Dictated by : MORALES CARROLL MD This examination was interpreted and the report reviewed and electronically signed by: MORALES CARROLL MD on May 23 2024 1:41PM EST [facility] HospitalRadiology Study observation (narrative)[facility] HospitalXR Chest PA and LateralOrdered By: Ccf Provider on 78-84-7901Plwubrhzo ClinicALL CBC WITH AUTO DIFFon 96-12-2468BFDEWLTRJ ABSOLUTE AUTO0.1NOMS HealthcareBasophils/100 WBC (Bld)1.1 %0.2 - 2.0 %N[facility] HealthcareEosinophils/100 WBC (Bld)5.4 %0.9 - 7.0 %NOM[facility] HealthcareErythrocyte distribution width (RBC) [Ratio]14.2 %11.0 - 15.0 % [facility] HealthcareHematocrit (Bld) [Volume fraction]37.2 %Low42.0 - 54.0 %[facility] HealthcareHemoglobin (Bld) [Mass/Vol]12.7 g/dLLow14.0 - 18.0 g/dLNOMadison Medical Center IMMATURE GRANULOCYTES ABS AUTO0.04HighNOSD HealthcareImmature granulocytes/100 WBC (Bld)0.8 %High0.0 - 0.5 %[facility] HealthcareInterpretation and review of laboratory resultsAbnormalNOSD HealthcareLYMPHOCYTES ABSOLUTE AUTO0.7LowNOMS HealthcareLymphocytes/100 WBC (Bld)12.5 %Low20.5 - 60.0 %[facility] CenterH (RBC) [Entitic mass]34.4 guEovo10.9 - 34.0 pgNOMadison Medical CenterMCHC (RBC) [Mass/Vol]34.1 g/dL29.9 - 35.2 g/dLGeneral Leonard Wood Army Community HospitalMCV (RBC) [Entitic vol]100.8 fENsmb98.0 - 94.0 fLNOSD HealthcareMONOCYTES ABSOLUTE AUTO0.8NOS[facility] Healthcare Monocytes/100 WBC (Bld)14.8 %High1.7 - 12.0 %NOM HealthcareNEUTROPHILS ABSOLUTE AUTO3.4NOMS HealthcareNeutrophils/100 WBC (Bld)65.4 %43.0 - 75.0 %[facility] HealthcarePlatelet mean volume (Bld) [Entitic vol]10.5 fL9.5 - 13.5 fLNOSD HealthcareTBH EO #0.3NOMS HealthcareTBH [id number] HealthcareTB RBC3.69LowNOMS Access Hospital DaytonTB WBC5.2NOMS HealthcareCLINISYNCNOMS HealthcareOrders Onlyon 06-44-2134Jhmjwk [id number] Loyd Blandon 1955 M Date Provider Department Center 05/08/2024 1065-JOSH JANE [facility] No family history on fileNormalUniversity of Medical Center HospitalOrders Only [id number] JamiaLoyd rivera 1955 M Date Provider Department Center 05/08/202456359-DWDIDRENARD HAZEL [facility] No family history on fileNormalUniversity of Medical Center HospitalALBUMIN, BODY FLUIDOrdered By: Tejal Kidd on 97-37-0947Rcmdsoi (Body fld) [Mass/Vol]0.4 g/dLSee CommentSt. John of God Hospitalment on above:Body Fluid Albumin may be [...] document C49A. JOEL Murrell: Clinical Laboratory Standards [place]: 2007. 2. Patience URIOSTEGUI. Serum to ascites albumin gradient. UpToDate. 2015. Accessed on July 29, 2015. This test was developed, and its performance characteristics determined by the [facility] Department of Pathology and Laboratory Medicine. It has not been cleared or approved by the FDA. The [facility] Department of Pathology and Laboratory Medicine is regulated under CLIA as qualified to perform high-complexity testing. This test is used for clinical purposes. It should not be regarded as investigational or for research. AMYLASE, BODY FLUIDon 41-83-9565Cjuaqmz (Body fld) [Catalytic activity/Vol]12 U/LSee CommentSt. John of God Hospitalment on above:PLEURAL FLUIDS: Amylase measurement in [...] document C49-A. JOEL Murrell: Clinical Laboratory Standards [place]; 2007. 3. Riyk SHAW, Mckinley RC, Rose DJ. Use of cyst fluid CEA, CA19-9, and amylase for evaluation of pancreatic lesions. Clinical Biochemistry. 2009;42:9652-4564. This test was developed, and its performance characteristics determined by the [facility] Department of Pathology and Laboratory Medicine. It has not been cleared or approved by the FDA. The [facility] Department of Pathology and Laboratory Medicine is regulated under CLIA as qualified to perform high-complexity testing. This test is used for clinical purposes. It should not be regarded as investigational or for research. Albumin (Body fld) [Mass/Vol]Ordered By: Tejal Kidd on 03-93-8804Zyhic Nom (Body fld)ASCITES FLUIDSelect Medical Cleveland Clinic Rehabilitation Hospital, Edwin ShawAmylase (Body fld) [Catalytic activity/Vol]on 43-96-3270Kshvp Nom (Body fld)ASCITES FLUIDSelect Medical Cleveland Clinic Rehabilitation Hospital, Edwin ShawBODY FLUID CELL COUNTOrdered By: Austin Moore on 13-56-9474Jhkiagw (Unsp spec)ClearClearCleveland ClinicClarity (Unsp spec)Not IndicatedClearCleveland ClinicColor (Body fld)YellowYellowCleveland ClinicColor (Body fld)Not IndicatedYelOhioHealth Grove City Methodist Hospital Manual cnt (Body fld) [#/Vol] /uLNINF - 2000 /[facility]'s Medical Centerpecimen source Nom (Body fld)AbdomenAdena Fayette Medical Center Manual cnt (Body fld) [#/Vol]111 /uLNINF - 1000 /uLSelect Medical Specialty Hospital - AkronGuidance for paracentesis and insertion of tube of Peritoneumon 70-35-5918Mbyc: Loyd Hendersonenig Patient presents for a Paracentesis. Indication for Procedure: Ascites INFORMED CONSENT Loyd Blandon Medical Record: [id number] Procedure: Paracentesis The risks, benefits and anticipated [...] associated with the procedure. Rosalinda Benoit APRN.CNP PROVATIONHolmes County Joel Pomerene Memorial HospitalRadiology Study observation (narrative)[facility] PROTEIN, BODY FLUIDon 69-97-4715Loilzbz (Body fld) [Mass/Vol]0.9 g/dLSee Comment [facility] HospitalComment on above:Serous fluids: Effusions are the [...] Fluids in Clinical Chemistry Approved Guideline. CLSI [id number]. JOEL Murrell: Clinical Laboratory Standards [place]: 2007. Protein (Body fld) [Mass/Vol]on 13-67-8273Tpjxogsqe ClinicUS PARACENTESIS (POC) DDI USE ONLYon 66-24-5460Coqpajtzb ClinicCT Liver W contrast Syed 04-29-2024 IMPRESSION: MORPHOLOGIC FINDINGS OF CIRRHOSIS AND PORTAL HYPERTENSION. 1.0 CM LI-RADS 5/OPTN 5 LESION IN THE DOME OF SEGMENT VIII WITHOUT TUMOR THROMBUS. NO EVIDENCE OF METASTATIC DISEASE. MASSIVE ASCITES. MASSIVE RIGHT PLEURAL EFFUSION WITH AT LEAST SEGMENTAL RIGHT LUNG COLLAPSE. Regeneration Operator: PSCB Transcribe Date/Time: Apr 29 2024 9:30P Dictated by : MORALES ADAMS MD This examination was interpreted and the report reviewed and electronically signed by: MORALES ADAMS MD on Apr 29 2024 11:09PM [facility] DIVISION OF RADIOLOGY* * *Final Report* * * DATE OF EXAM: Apr 29 2024 5:02PM [facility] 0548 - CT [...] LI-RADS Category: LR-5/OPTN class 5 (definitely HCC) Bvirz-dq-ahdx: absent. No other focal hepatic lesion. Biliary: [...] least) right lower lung collapse. Localizer images: Kiln Mechanic image shows small volume of expanded lung in the right apex. DIVISION OF RADIOLOGYProvider, [facility] - 04/29/2024 * * *Final Report* * * DATE OF EXAM: Apr 29 2024 5:02PM [facility] 0548 - CT [...] LI-RADS Category: LR-5/OPTN class 5 (definitely HCC) Xyvsr-qg-kozs: absent. No other focal hepatic lesion. Biliary: [...] least) right lower lung collapse. Localizer images: Kiln Mechanic image shows small volume of expanded lung in the right apex. IMPRESSION IMPRESSION: MORPHOLOGIC FINDINGS OF CIRRHOSIS AND PORTAL HYPERTENSION. 1.0 CM LI-RADS 5/OPTN 5 LESION IN THE DOME OF SEGMENT VIII WITHOUT TUMOR THROMBUS. NO EVIDENCE OF METASTATIC DISEASE. MASSIVE ASCITES. MASSIVE RIGHT PLEURAL EFFUSION WITH AT LEAST SEGMENTAL RIGHT LUNG COLLAPSE. Regeneration Operator: SRINI Transcribe Date/Time: Apr 29 2024 9:30P Dictated by : MORALES ADAMS MD This examination was interpreted and the report reviewed and electronically signed by: MORALES ADAMS MD on Apr 29 2024 11:09PM EST [facility] HospitalRadiology Study observation (narrative)[facility] Liver W contrast IVOrdered By: Ccf Provider on 27-05-2330Pphukvjzg ClinicUS PARACENTESIS ABD W/IMAGEon 53-51-3356O[address] [address] Ultrasound Report Signed Patient: LOYD BLANDON MR#: [id number] : 1955 Acct:[id number] Age/Sex: 68 / M ADM Date: 04/03/24 Loc: US Attending Dr: Non-Staff Physician Eriberto Ordering Physician: PhysicianYolandaStaff Eriberto Date of Service: 04/03/24 Procedure(s): US paracentesis abd w/image Accession Number(s): [id number] cc: SANJAY ROBLEDO ; Physician,YolandaStaff Eriberto The [place] [address] Patient Name: LOYD BLANDON MRN: [id number] date: 1955 Sex: M Assigned Patient Location: US Current Patient Location: US Accession/Order Number: [id number] Exam Date: 04/03/2024 07:30 Report Date: 04/03/2024 [...] Signed By: 04/03/24 1108 DD/ 110 TD/TT: Regeneration Operator:TBHRadiology, Radiologist, - 04/03/2024 [place] [address] Ultrasound Report Signed Patient: LOYD BLANDON MR#: [id number] : 1955 Acct:[id number] Age/Sex: 68 / M ADM Date: 04/03/24 Loc: US Attending Dr: Non-Staff Physician Eriberto Ordering Physician: Maddy Duarte M.D. Date of Service: 04/03/24 Procedure(s): US paracentesis abd w/image Accession Number(s): [id number] cc: SANJAY ROBLEDO ; Physician,YolandaStaff Eriberto The [address] [address] Patient Name: LOYD BLANDON MRN: [id number] date: 1955 Sex: M Assigned Patient Location: US Current Patient Location: US Accession/Order Number: [id number] Exam Date: 04/03/2024 07:30 Report Date: 04/03/2024 [...] Signed By: 04/03/24 110 DD/ 110 TD/TT: Regeneration Operator: EDDIE HealthcareRadiology Study observation (narrative)EDDIE HealthcareUS PARACENTESIS ABD W/IMAGEOrdered By: Radiologist Radiology on 34-98-4212FZOC Healthcare Work Phone: US PARACENTESIS ABD W/IMAGEon 05-82-2321U[address] [address] Ultrasound Report Signed Patient: LOYD BLANDON MR#: [id number] : 1955 Acct:[id number] Age/Sex: 68 / M ADM Date: 03/11/24 Loc: US Attending Dr: Non-Staff Physician Eriberto Ordering Physician: PhysicianBryanna-Staff Eriberto Date of Service: 03/11/24 Procedure(s): US paracentesis abd w/image Accession Number(s): [id number] cc: SANJAY ROBLEDO ; Physician,Bryanna-Staff Eriberto [place] [id number] Patient Name: LOYD BLANDON MRN: [facility]:[id number] date: 1955 Sex: M Assigned Patient Location: US Current Patient Location: Accession/Order Number: [id number] Exam Date: 03/11/2024 12:48 Report Date: 03/12/2024 [...] M.D. Signed By: 03/12/2446 DD/ 3 TD/TT: Regeneration Operator:TBHRadiology, Radiologist, - 03/12/2024 The [place] [id number] Ultrasound Report Signed Patient: LOYD BLANDON MR#: [id number] : 1955 Acct:[id number] Age/Sex: 68 / M ADM Date: 03/11/24 Loc: US Attending Dr: Non-Staff Physician Eriberto Ordering Physician: Physician,Non-Staff Eriberto Date of Service: 03/11/24 Procedure(s): US paracentesis abd w/image Accession Number(s): [id number] cc: SANJAY ROBLEDO ; Physician,Non-Staff Eriberto The [place] [id number] Patient Name: LOYD BLANDON MRN: [id number] date: 1955 Sex: M Assigned Patient Location: US Current Patient Location: Accession/Order Number: [id number] Exam Date: 03/11/2024 12:48 Report Date: 03/12/2024 [...] M.D. Signed By: 03/12/2446 DD/ 3 TD/TT: Regeneration Operator: EDDIE HealthcareRadiology Study observation (narrative)EDDIE MixUS PARACENTESIS ABD W/IMAGEOrdered By: Radiologist Radiology on 59-78-0110TDVH [employer] Work Phone: [phone] 80-57-570665Nji patient's had a concern regarding increasing Coreg [...] it. Deny Simpson MD Gastroenterology FellowNormalUniversity of Medical Center HospitalTelephoneon [id number] Loyd Blandon 1955 [facility] Provider Department [place] 03/11/2024 151DENY BALL [facility] No family history on fileNormalUniversity J.W. Ruby Memorial [facility] [id number] increase the coreg dose to 6.25 mg in the am and 3.125 mg in the pm Do the Chest Xray now and if there are concerns for fluid accumulation, go to the ED Do the labs ordered todayNormalUniCleveland Clinic Children's Hospital for RehabilitationCB WITH AUTO DIFFERENTIALon 30-20-9567Swxlkioll (Bld) [#/Vol]0.05 10*3/uLNormal0.00-0.20 [facility] DaytonComment on above:Performed By: #### [id number] #### [facility] ([facility]) [address] [place], [place] [address]Gbsmjhnno/100 WBC (Bld)1.1 %High0.0-1.0UnHighland District HospitalComment on above:Performed By: #### [id number] #### [facility] (BEAKER) [address] [place], [place] [address]Yseyyveursp (Bld) [#/Vol]0.22 10*3/uLNormal0.00-0.50UnHighland District HospitalComment on above:Performed By: #### [id number] #### [facility] ([facility]) [address] [place] [address]Scwohwxtqud/100 WBC (Bld)4.8 %Normal0.0-6.0UnHighland District HospitalComment on above:Performed By: #### [id number] #### [facility] ([facility]) [address] [facility]ITALLe[facility] [place], [place] [address]Cvzyyxobgcp distribution width (RBC) [Ratio]16.4 %High11.5-15.0 [facility] DaytonComment on above:Performed By: #### [id number] #### [facility] ([facility]) [address] [place], [place] [address]EFEDEWIJSLN MEAN CORPUSCULAR HEMOGLOBIN CONCENTRATION (G/DL) BY RGJBVLBMX73.1 g/iIBrsztl45.0-35.0UnHighland District HospitalComment on above:Performed By: #### [id number] #### [facility] ([facility]) [address] [place], [place] [address]Koqcirrbbo (Bld) [Volume fraction]37.5 %Low39.0-55.0UnHighland District HospitalComment on above:Performed By: #### [id number] #### [facility] ([facility]) [address] [place], [place] [address]Xfpuiaopuz (Bld) [Mass/Vol]12.8 g/dLLow13.0-17.0UnHighland District HospitalComment on above:Performed By: #### [id number] #### [facility] ([facility]) [address] [place], [place] [address]Lpinprtj granulocytes (Bld) [#/Vol]0.02 10*3/uLNormal0.00-0.20 [facility] DaytonComment on above:Performed By: #### [id number] #### [facility] ([facility]) [address] [facility] [facility] [place], [place] [address]Wvipewgk granulocytes/100 WBC (Bld)0.4 %Normal0.0-1.0UnHighland District HospitalComment on above:Performed By: #### [id number] #### [facility] ([facility]) [address] [place], [place] [address]Avvnbgemgyl (Bld) [#/Vol]0.71 10*3/uLLow1.20-4.00UnHighland District HospitalComment on above:Performed By: #### [id number] #### [facility] ([facility]) [address] [place], [place] [address]Xfdqfbqkopj/100 WBC (Bld)15.6 %Low20.0-45.0UnHighland District HospitalComment on above:Performed By: #### [id number] #### [facility] ([facility]) [address] [place], [place] [address]NDM (RBC) [Entitic mass]34.3 ufKrhm90.0-33.0UnHighland District HospitalComment on above:Performed By: #### [id number] #### [facility] ([facility]) [address] [facility], [place] [address]SYJ (RBC) [Entitic vol]100.5 zKWuiz48.0-98.0UnHighland District HospitalComment on above:Performed By: #### [id number] #### [facility] ([facility]) [address] [facility] [place] [place], [place] [address]Ogblxdses (Bld) [#/Vol]0.57 10*3/uLNormal0.10-1.00UnHighland District HospitalComment on above:Performed By: #### [id number] #### [facility] ([facility]) [address] [facility]ENTER[facility] [place], [place] [address]Qtnpyqzza/100 WBC (Bld)12.5 %High5.0-12.0UnHighland District HospitalComment on above:Performed By: #### [id number] #### [facility] ([facility]) [address] [place] [address]Jxbakuabxwr (Bld) [#/Vol]2.99 10*3/uLNormal1.60-7.60UnHighland District HospitalComment on above:Performed By: #### [id number] #### [facility] ([facility]) [address] [place] [address]Vkrgzxdhkxr/100 WBC (Bld)65.6 %Sxfmow67.0-72.0UnHighland District HospitalComment on above:Performed By: #### [id number] #### [facility] ([facility]) [address] [place] [address]OZBM (PER 100 WBCS) BY AUTOMATED COUNT0.0 %Skywhp2QhiysehqsmHighland District HospitalComment on above:Performed By: #### [id number] #### [facility] ([facility]) [address] [place] [address]ZBMGCYPKE (10*3/UL) IN BLOOD AUTOMATED PPKGM213 10*3/uLNormal 150-400UnHighland District HospitalComment on above:Performed By: #### [id number] #### [facility] ([facility]) [address] [place] [address]ULM (Bld) [#/Vol]3.73 10*6/uLLow4.20-5.70UnHighland District HospitalComment on above:Performed By: #### [id number] #### [facility] ([facility]) [address] [place] [address]ZAV (Bld) [#/Vol]4.56 10*3/uLNormal4.00-10.60UnHighland District HospitalComment on above:Performed By: #### [id number] #### [facility] ([facility]) [address] [place] [address]WGUTHFLVZIHYS METABOLIC PANELon 41-58-5065Nspytjg [Mass/Vol]3.0 g/dLLow3.5-5.7UnHighland District HospitalComment on above:Performed By: #### [id number] ####[facility] (BEAKER)[address] [place], [place] [address]ETY [Catalytic activity/Vol]113 U/BMidq35-477PkpzkhndmkHighland District Hospital Comment on above:Performed By: #### [id number] ####[facility] ([facility])[address] [place], [place] [address]JQN [Catalytic activity/Vol]28 U/LNormal7-52 [facility] DaytonComment on above:Performed By: #### [id number] ####[facility] ([facility])[address] [place], [place] [address]Ymcdi gap [Moles/Vol]10 mmol/LNormal7-20UnHighland District HospitalComment on above:Performed By: #### [id number] ####[facility] ([facility])[address] [place], [place] [address]NYH [Catalytic activity/Vol]48 U/VFzsx96-17JusxqmaftyHighland District HospitalComment on above:Performed By: #### [id number] ####[facility] ([facility])[address] [place], [place] [address]Unokyahro [Mass/Vol]1.7 mg/dLHigh 0.3-1.0UnHighland District HospitalComment on above:Performed By: #### [id number] ####[facility] ([facility])[address] [place], [place] [address]Qbwoqea [Mass/Vol]8.8 mg/dLNormal8.6-10.3UnHighland District HospitalComment on above:Performed By: #### [id number] ####[facility] (BEAKER)[address] [place], [place] [address]Zuvzhbxf [Moles/Vol]101 mmol/DVebmfd33-327CopwjuvdpgHighland District HospitalComment on above:Performed By: #### [id number] ####[facility] (BEAKER)[address] [place], [place] [address]LQ1 [Moles/Vol]24 mmol/LNormal 21-31UnHighland District HospitalComment on above:Performed By: #### [id number] ####[facility] ([facility])[address] [place] [address]Lrxkltlhqh [Mass/Vol]1.20 mg/dLNormal0.70-1.30UnHighland District HospitalComment on above:Performed By: #### [id number] ####[facility] ([facility])[address] [place], [place] [address]HYEZFNJDZZ FILTRATION RATE ML/MIN/1.73 SQ M.WYNPPWLAB41.1 mL/min/1.73m*2Normal>60.0UnHighland District HospitalComment on above: Result Comment: [facility]???s estimated glomerular filtration rate (eGFR) will no [...] anyone group of individuals.Performed By: #### [id number] ####[facility] ([facility])[address] [facility] HOSPITALMaritzaJE[place], [place] [address]Iqvgxol [Mass/Vol]184 mg/iGAdzr62-799OwpwcaxrpvHighland District HospitalComment on above:Performed By: #### [id number] ####[facility] ([facility])[address] [place], [place] [address]Iyffcomoo [Moles/Vol]4.4 mmol/L Normal3.5-5.1UnHighland District HospitalComment on above:Performed By: #### [id number] ####[facility] ([facility])[address] [place] [address] Protein [Mass/Vol]7.0 g/dLNormal6.0-8.3UnHighland District Hospital Comment on above:Performed By: #### [id number] ####[facility] (BEAKER)[address] [place], [place] [address]Qrjyqk [Moles/Vol]131 mmol/AUfd279-262VqzqxscjgmHighland District HospitalComment on above:Performed By: #### [id number] ####[facility] (BEAKER)[address] [place], [place] [address]Mpkb nitrogen [Mass/Vol] 18 mg/dLNormal7-25UnHighland District HospitalComment on above:Performed By: #### [id number] ####[facility] ([facility])[address] [place] [address] UREA NITROGEN/CREATININE (MASS RATIO) IN SER/PLAS15.0NormalUniCleveland Clinic Children's Hospital for RehabilitationComment on above:Performed By: #### [id number] ####[facility] (BEAKER)[address] [place] [address]Drfqx [id number] Loyd Blandon 1955 M Date Provider Department Center 03/08/2024 2244-[facility] MP LAB RESOURCE MP DRAW Medical Pavi No family history on fileNormalUniCleveland Clinic Children's Hospital for RehabilitationOffice Visiton 26-62-9770Ucrild-up [id number] Loyd Blandon 1955 M Date Provider Department Center 03/08/2024 298-[facility] Medical Pavi No family history on file Level of Service:52570 [place] OFFICE/OUTPATIENT ESTABLISHED HIGH MDM 40 MIN (GC) Reason for Visit and Comments: Follow-up [956793] Cirrhosis [239]NormalUnHighland District HospitalPROTIME-INRon 03-08-2024 INR IN PPP BY COAGULATION ASSAY1.17Izwe4.90-1.10UnHighland District HospitalComment on above:Result Comment: ACCCP RECOMMENDED INR [...] OPTIMAL THERAPEUTIC RANGE. CHEST 1995;108:231S-246S.Performed By: #### [id number] ####[facility] [place], [place] [address]JKTLUVWBCEF TIME (PT) IN PPP BY COAGULATION ASSAY16.6 VpupamaIhhc02.3-14.8UnHighland District HospitalComment on above:Performed By: #### [id number] ####[facility])[address] [place], [place] [address]FQK CULTUREon 65-79-0070XRU CULTURENo growth at 42 daysNormalUniCleveland Clinic Children's Hospital for RehabilitationComment on above: Performed By: #### [id number] ####[facility] ([facility])[address] [place], [place] [address]ASG STAINNo acid fast bacilli seenNormalUniCleveland Clinic Children's Hospital for RehabilitationComment on above:Performed By: #### [id number] ####[facility])[address] [place], [place] [address]JHLETIH, BODY FLUIDon 02-20-2024 AMYLASE (U/L) IN BODY FLUID18 U/LNormalUnHighland District Hospital Comment on above:Result Comment: The reference range and other method performance specifications have not been established for this test in fluids. the test result should be integrated into the clinical context for in terpretation.Performed By: #### [id number] ####[facility])[address] [place], [place] [address]LPXI FLUID CELL DIFFERENTIALon 80-63-1649GUCQPUYBF TOTAL PER COUNTED LEUKOCYTES IN BODY FLUID BY MANUAL COUNTNormalUniversity of Medical Center HospitalComsheridan community hospital on above:Order Comment: Differential performed on cytospinPerformed By: #### [id number] ####[facility] (BEAKER)[address] [place], [place] [address]EHRQX COUNTED TOTAL (#) IN BODY KEULC599GptntpEoqcchhvnx of Medical Center HospitalComsheridan community hospital on above:Order Comment: Differential performed on cytospinPerformed By: #### [id number] ####[facility] (AKER)[address] [place], [place] [address]XCOMGUHGXEO TOTAL PER COUNTED LEUKOCYTES IN BODY FLUID BY MANUAL COUNTNormalUniversity of Medical Center HospitalComsheridan community hospital on above:Order Comment: Differential performed on cytospinPerformed By: #### [id number] ####[facility] ([facility])[address] [place], [place] [address]ESVOSPLCSKS TOTAL PER COUNTED LEUKOCYTES IN BODY FLUID BY MANUAL WQYWK86EhldpbDkglhvlydrProMedica Bay Park HospitalComsheridan community hospital on above:Order Comment: Differential performed on cytospin Performed By: #### [id number] ####[facility] (AKER)[address] [place], [place] [address]FVSIAJQGYPZ CELLS TOTAL PER COUNTED LEUKOCYTES IN BODY FLUID BY MANUAL PNZZ45MgqwngCodosfdkad of Medical Center HospitalComsheridan community hospital on above:Order Comment: Differential performed on cytospinPerformed By: #### [id number] ####[facility] (BEAKER)[address] [place], [place] [address]XYNSIUVQN+MACROPHAGES TOTAL PER COUNTED LEUKOCYTES IN BODY FLUID BY MANUALNormalUniversity of Medical Center HospitalComsheridan community hospital on above:Order Comment: Differential performed on cytospin Performed By: #### [id number] ####[facility] (BEAKER)[address] [place], [place] [address]HYDIRZAFRIJ TOTAL PER COUNTED LEUKOCYTES IN BODY FLUID BY MANUAL EHGSX2BhcwxcLwgdtfkaquProMedica Bay Park HospitalComsheridan community hospital on above:Order Comment: Differential performed on cytospinPerformed By: #### [id number] ####[facility] (BEAKER)[address] AVETOHAHNEMANN UNIVERSITY HOSPITALMaritzaJE[place], [place] [address]GBHVD CELLS BODY FLUID (MANUAL)NormalUnHighland District HospitalComment on above:Order Comment: Differential performed on cytospinPerformed By: #### [id number] ####[facility] ([facility])[address] [place] [address]XTTR FLUID CULTUREon 02-20-2024 Bacteria identified Cx Nom (Unsp spec)No growth at 5 daysNormalUniCleveland Clinic Children's Hospital for RehabilitationComment on above:Performed By: #### [id number] ####[facility] ([facility])[address] [place] [place] [address]VPPN STAIN RESULTNormal [facility] Hospital DaytonComment on above:Result Comment: Polymorphonuclear leukocytes No organisms seen Cytocentrifuge samplePerformed By: #### [id number] ####[facility] ([facility])[address] [facility] [place] [place] [address]FAFqe 29-29-1578Exushrxycwm distribution width (RBC) [Ratio]16.0 %High11.5-15.0UnHighland District HospitalComment on above:Performed By: #### [id number] ####[facility] ([facility])[address] [facility]IUSHAHNEM[facility] UNIVERSITY HOSPITALMaritzaJE[place], [place] [address]SOUMOUWLWAI MEAN CORPUSCULAR HEMOGLOBIN CONCENTRATION (G/DL) BY SZGKSASRT93.2 g/wVSrosnd31.0-35.0UnHighland District HospitalComment on above:Performed By: #### [id number] ####[facility] ([facility])[address] [place] [address]Yesyhbicux (Bld) [Volume fraction]33.6 %Low39.0-55.0UnHighland District HospitalComment on above: Performed By: #### [id number] ####[facility] ([facility])[address] [place] [address]Snrthhceqj (Bld) [Mass/Vol]11.5 g/dLLow13.0-17.0UnHighland District HospitalComment on above:Performed By: #### [id number] ####[facility] ([facility])[address] [place] [address]JSEFLLVS PLATELET FRACTION %1.7 %Normal0.8-6.3UnHighland District HospitalComment on above: Performed By: #### [id number] ####[facility] ([facility])[address] [place] [address]LDZ (RBC) [Entitic mass]34.0 qnZeye64.0-33.0UnHighland District HospitalComment on above:Performed By: #### [id number] ####[facility] ([facility])[address] [place] [address]BAZ (RBC) [Entitic vol] 99.4 mLKron82.0-98.0UnHighland District HospitalComment on above: Performed By: #### [id number] ####[facility] ([facility])[address] [place] [address]GIQRUCKLV (10*3/UL) IN BLOOD AUTOMATED BHKGQ276 10*3/uLLow 150-400UnHighland District HospitalComment on above:Performed By: #### [id number] ####[facility] ([facility])[address] [place] [address]VLU (Bld) [#/Vol]3.38 10*6/uLLow4.20-5.70UnHighland District HospitalComment on above:Performed By: #### [id number] ####[facility] ([facility])[address] [place] [address]JIE (Bld) [#/Vol]4.26 10*3/uLNormal4.00-10.60UnHighland District HospitalComment on above:Performed By: #### [id number] ####[facility] ([facility])[address] [place] [address]AQAYLTWHFBQ, BODY FLUIDon 80-56-8638IVNGYUBKMQI (MG/DL) IN BODY FLUID<25NormalUniversProMedica Bay Park HospitalComment on above:Performed By: #### [id number] #### [facility] ([facility]) [address] [place], [place] [address]CJXGYVPPQXPOH METABOLIC PANELon 81-34-1131Uvfxipd [Mass/Vol]2.6 g/dLLow3.5-5.7UnHighland District HospitalComment on above:Performed By: #### [id number] #### [facility] ([facility]) [address] [place] [place], [place] [address]VDL [Catalytic activity/Vol]89 U/GXkfkjy84-163JedqvetxisHighland District HospitalComment on above:Performed By: #### [id number] #### [facility] ([facility]) [address] [place], [place] [address]TLW [Catalytic activity/Vol]20 U/LNormal7-52UnHighland District HospitalComment on above:Performed By: #### [id number] #### [facility] ([facility]) [address] [place], [place] [address]Tufxh gap [Moles/Vol]8 mmol/LNormal7-20UnHighland District HospitalComment on above:Performed By: #### [id number] #### [facility] ([facility]) [address] [place], [place] [address]WUX [Catalytic activity/Vol]35 U/NWlznqq57-13IwnjifjbhzHighland District HospitalComment on above:Performed By: #### [id number] #### [facility] ([facility]) [address] [place], [place] [address]Nzsndsjwt [Mass/Vol]1.5 mg/dLHigh0.3-1.0UnHighland District HospitalComment on above:Performed By: #### [id number] #### [facility] ([facility]) [address] [place], [place] [address]Dfshpcl [Mass/Vol]8.4 mg/dLLow8.6-10.3UnHighland District HospitalComment on above:Performed By: #### [id number] #### [facility] ([facility]) [address] [place], [place] [address]Iwjgxybd [Moles/Vol]105 mmol/GBvbsim54-429QhxnabrmjsHighland District HospitalComment on above:Performed By: #### [id number] #### [facility] ([place]) [address] [place] [address]HQ5 [Moles/Vol]25 mmol/YSfdzqg14-86BzldgyiguoHighland District HospitalComment on above:Performed By: #### [id number] #### [facility] ([facility]) [address] [place] [address]Hwwrvsghgu [Mass/Vol]1.09 mg/dLNormal0.70-1.30UnHighland District HospitalComment on above:Performed By: #### [id number] #### [facility] ([facility]) [address] [place] [address]EPSNMCZFBE FILTRATION RATE ML/MIN/1.73 SQ M.COECHLXML06.0 mL/min/1.73m*2Normal>60.0UnHighland District HospitalComment on above: Result Comment: [facility]???s estimated glomerular filtration rate (eGFR) will no [...] group of individuals.Performed By: #### [id number] #### [facility] ([place]) [address] [place] [address]Nxcxsmy [Mass/Vol]103 mg/cONste23-165BievptsjhsHighland District HospitalComment on above:Performed By: #### [id number] #### [facility] ([facility]) [address] [place] [address]Dfijqyefd [Moles/Vol]4.3 mmol/LNormal3.5-5.1UnHighland District HospitalComment on above:Performed By: #### [id number] #### [facility] ([facility]) [address] [place], [place] [address]Lbxhqui [Mass/Vol]6.0 g/dLNormal6.0-8.3UnHighland District HospitalComment on above:Performed By: #### [id number] #### [facility] ([facility]) [address] [place], [place] [address]Bjymxr [Moles/Vol]134 mmol/FMms695-904ByqgguxuexHighland District HospitalComment on above:Performed By: #### [id number] #### [facility] ([facility]) [address] [place], [place] [address]Ylbq nitrogen [Mass/Vol]20 mg/dLNormal7-25UnHighland District HospitalComment on above:Performed By: #### [id number] #### [facility] ([facility]) [address] [place], [place] [address]WPEI NITROGEN/CREATININE (MASS RATIO) IN SER/PLAS18.3Normal [facility] Hospital DaytonComment on above:Performed By: #### [id number] #### [facility] ([facility]) [address] [place] [place], [place] [address]TTXWOAP, BODY FLUIDon 95-56-7974DCWULZY (MG/DL) IN BODY EHNTR451 mg/dLNormalUniversProMedica Bay Park HospitalComment on above:Result Comment: The reference range and other method performance specifications have not been established for this test in fluids. the test result should be integrated into the clinical context for interpretation.Performed By: #### [id number] ####[facility] ([facility])[address] [place], [place] [address]HIqa 42-16-1823CEL&P reviewed. The patient was examined and there are no changes to the H&P.Normal [facility] DaytonLACTATE DEHYDROGENASEon 21-22-93[address]TRPACGC DEHYDROGENASE (U/L) IN SER/PLAS BY LAC->PYR BKV997 U/VVdnmew616-909WyofhcsjeiHighland District HospitalComment on above:Performed By: #### [id number] #### [facility] ([facility]) [address] [place], [place] [id number] DEHYDROGENASE, BODY FLUIDon [id number] DEHYDROGENASE (U/L) IN BODY FLUID BY LAC->PYR42 U/LNormalUnHighland District HospitalComment on above:Result Comment: The reference range and other method performance specifications have not been established for this test in fluids. the test result should be integrated into the clinical context for in terpretation.Performed By: #### [id number] #### [facility] ([facility]) [address] [place], [place] [address]WVB-[facility] CYTOLOGY - CELLULAR EXAMon [id number] AP CASE REPORT NormalUnHighland District HospitalComment on above:Result Comment: Non- gynecologic Cytology Case: [id number] Authorizing Provider: Aston Conner MD Collected: 02/20/2024 1014 Ordering Location: [address] Surgery Received: 02/20/2024 1208 Pathologist: Shireen Pat MD Specimen: Pleural fluid, right, collected per pulmonary residentPerformed By: #### [id number] ####[facility] ([facility])[address] [place], [place] [address]ZVA AP CLINICAL INFORMATIONNormalUniCleveland Clinic Children's Hospital for RehabilitationComment on above:Result Comment: Pleural effusionPerformed By: #### [id number] ####[facility] ([facility])[address] [place], [place] [address]ETO AP DIAGNOSIS COMMENTWhile no malignancy is identified in this sample, the specimen is hypocellular. Of note, only 18 mLof pleural fluid specimen was received in the lab, of which 5 mL was available for cytology testing. A specimen volume of at least 200 mL is recommended for cytology when available.NormalUnHighland District HospitalComment on above:Performed By: #### [id number] ####[facility] ([facility])[address] [place], [place] [address]PGG AP GROSS DESCRIPTIONNormal [facility]red Hospital DaytonComment on above:Result Comment: 5 mL clear, yellow fluidPerformed By: #### LAB13 ####[facility] ([facility])[address] [place] [address]DBP AP REPORT FINAL DIAGNOSIS NARRATIVENormal [facility]red Hospital DaytonComment on above:Result Comment: A. Pleural fluid, right: - Negative for malignancy. - Hypocellular specimen. See comment. Performed By: #### LAB13 ####[facility] ([facility])[address] [place] [address] NURSNOTEon 91-17-4694IEHJIODELav positioning devices removed pt remains supine. NormalUnHighland District HospitalPATHOLOGY REVIEWon 52-11-4091ZSPESQROL REVIEW .Normal [facility]red Hospital DaytonComment on above:Performed By: #### [id number] ####[facility] ([facility])[address] [place] [address]ZCCB GLUCOSE METER UNSOLICITED RESULTSon 63-47-0432Qeqduqi [Mass/Vol]94 mg/kZFnhsrv82-286 [facility] Hospital DaytonComment on above:Order Comment: Waived Testing in the ED is performed under the ED CLIA certificate #[id number].Result Comment: skirbyPerformed By: #### [id number] ####[facility] ([facility])[address] [place], [place] [address]BCOOFCN, BODY FLUIDon 90-19-8705Vffsecs (Body fld) [Mass/Vol]g/dLNormalUniversProMedica Bay Park HospitalComment on above:Result Comment: The reference range and other method performance specifications have not been established for this test in fluids. the test result should be integrated into the clinical context for interpretation.Performed By: #### HCJ211 ####[facility] ([facility])[address] [place], [place] [address]TMWZPLZ, TOTALon 68-90-1245Iadcitc [Mass/Vol]6.4 g/dLNormal6.0-8.3UnHighland District HospitalComment on above:Performed By: #### [id number] #### [facility] ([facility]) [address] [place] [address]TCHSLSI-FIZyq 16-26-2073ZQP IN PPP BY COAGULATION ASSAY1.35High 0.90-1.10UnHighland District HospitalComment on above:Result Comment: ACC RECOMMENDED INR [...] OPTIMAL THERAPEUTIC RANGE. CHEST 1995;108:231S-246S.Performed By: #### [id number] ####[facility] ([facility])[address] DIEGOMEMORIAL HEALTH SYSTEMMaritzaJEFF[place], [place] [address]CCUYSTYXMDK TIME (PT) IN PPP BY COAGULATION ASSAY16.6 YbkjrmaZuyj06.3-14.8UnHighland District HospitalComment on above:Performed By: #### [id number] ####[facility] ([facility])[address] [place], [place] [address]GKSKGGYJSBBFJ, BODY FLUIDon 02-20-2024 TRIGLYCERIDES (MG/DL) IN BODY FLUID30 mg/dLNormalUniversProMedica Bay Park HospitalComment on above:Performed By: #### [id number] #### [facility] ([facility]AKER) [address] [place] [address]ml 87-27-918117Eje patient is Moderately Stable - Low risk [...] by Diane Zavala RN Outcome: ProgressingNormalUniversity of Medical Center HospitalCONSULTon 91-05-6907KHEWVGK Attestation signed by Milagro Sheehan MD at [...] 3 tablets (150 m (more content not included)...[facility] HospitalCONSULT Attestation signed by Aston Conner MD [...] cirrhosis for which he follows up with [facility] gastroenterology. He has been struggling with recurrent ascites and has undergone multiple paracentesis over the past many weeks. He experiences dyspnea both at rest and over exertion for the past 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. Patient reports that his dyspnea got better/relieved for 1 day and he became symptomatic again after the fluid got reaccumulated. Today patient came to the [facility] hospital for an EGD he is accompanied [...] on file Years of (more content not included)...[facility] 10-44-0269ZT Attestation signed by Milagro Sheehan MD at [...] 3 tablets (150 m (more content not included)...[facility] HospitalHP Attestation signed by Irena Johnson MD [...] Abdominal: General: Abdomen i (more content not included)...[facility] HospitalOrders Onlyon 00-50-7410Qtmquw [id number] Loyd Blandon 1955 M [facility] Provider Department Center 02/19/2024 [place] [facility] No family history on critical access hospitalNormalUniCleveland Clinic Children's Hospital for RehabilitationOrders Only [id number] Loyd Blandon 1955 [facility] Provider Department [place] 02/19/2024 JANINA ROMERO MP GI Medical Pavi No family history on [facility]36on 53-18-104347Zgwjya patient's to schedule his 4-6 week follow up with Dr. Johnson, was able to get him in for the 03/08/24 clinic. During this phone call his stated that she is very upset and anxious because he had an MRI done on 01/25/24 in [place] and still hasn't received a call regarding the results. Apologized to her and told her a message would be sent to the provider regarding the results being reviewed with her and the patient, confirmed the message would be sent high priority. Please advise.[facility]36 LVM for patient's letting her know we have some available appts with Dr. Johnson on 02/21/24 and 03/08/24 to bring him in for a follow up Liver cirrhosis [facility] HospitalOffice Visiton 03-16-2737Pdawyl-up [id number] Loyd Blandon 1955 [facility] Provider Department Center 02/15/2024 JEAN KIM ONC [facility] No family history on file Level of Service:[address] [place] OFFICE/OUTPATIENT NEW LOW MDM 30 MINUTES (GC) Reason for Visit and Comments: Consult [484] - New patient possible thoracentesisNormalUniversProMedica Bay Park Hospital36on 60-43-385507Lbeivpn's called with questions/concerns regarding his upcoming endoscopy and his breathing during procedure. Transferred to endoscopy to speak with one of the nurses and/or schedulers that can answer questions related to preparation for the procedure.NormalKindred Hospital DaytonALL CBC WITH AUTO DIFFon 24-92-4562FQAKIBSFL ABSOLUTE AUTO0.1NOMS HealthcareBasophils/100 WBC (Bld)1 %0.2 - 2.0 %NOMS HealthcareEosinophils/100 WBC (Bld)4.5 %0.9 - 7.0 %NOMS HealthcareErythrocyte distribution width (RBC) [Ratio]15.6 %High11.0 - 15.0 % NOMS HealthcareHematocrit (Bld) [Volume fraction]38.2 %Low42.0 - 54.0 %NOMS [facility] Hospital DaytonHemoglobin (Bld) [Mass/Vol]13.1 g/dLLow14.0 - 18.0 g/dLNOMadison Medical Center IMMATURE GRANULOCYTES ABS AUTO0.01NOMadison Medical CenterImmature granulocytes/100 WBC (Bld)0.2 %0.0 - 0.5 %NOM HealthcareInterpretation and review of laboratory resultsAbnormalNOMadison Medical CenterLYMPHOCYTES ABSOLUTE LSOQ1QwpGMIG Healthcare Lymphocytes/100 WBC (Bld)19.5 %Low20.5 - 60.0 %[facility] CenterH (RBC) [Entitic mass]34.7 deVjck81.9 - 34.0 pgNOMercy Hospital WashingtonHC (RBC) [Mass/Vol]34.3 g/dL29.9 - 35.2 g/dLNevada Regional Medical CenterV (RBC) [Entitic vol]101.1 nJHxcu37.0 - 94.0 fLNOMadison Medical CenterMONOCYTES ABSOLUTE AUTO0.6NOMS HealthcareMonocytes/100 WBC (Bld)11.7 % 1.7 - 12.0 %NOMS HealthcareNEUTROPHILS ABSOLUTE AUTO3.1N[facility] Neutrophils/100 WBC (Bld)63.1 %43.0 - 75.0 %NOMS Access Hospital DaytonPlatelet mean volume (Bld) [Entitic vol]10 fL9.5 - 13.5 fLNOMadison Medical CenterTBH EO #0.2N[facility] Healthcare TB XNF695MpgUMHU [facility] RBC3.78LowNOBarnes-Jewish Hospital WBC4.9NOMS HealthcareCLINISYNCNOMS HealthcarePrep for Procedureon 04-54-9152Zcig for [id number] Loyd Blandon 1955 M Date Provider Department Center 02/12/2024 IRENA SCHMIDT [facility] LEAH No family history on fileNormalUniversity of Medical Center HospitalMR Abdomen WO and W contrast Syed 66-57-9588[place], [place] [address] Magnetic Resonance Report Signed Patient: LOYD BLANDON MR#: [id number] : 1955 Acct:[id number] Age/Sex: 68 / M ADM Date: 01/24/24 Loc: MRI Attending Dr: Non-Staff Physician Eriberto Ordering Physician: PhysicianYolandaStaff Eriberto Date of Service: 01/24/24 Procedure(s): MR abdomen wo/w con Accession Number(s): [id number] cc: SANJAY ROBLEDO ; Physician,NonMinnieStaff Eriberto The [place] [id number] Patient Name: LOYD BLANDON MRN: [facility]:[id number] date: 1955 Sex: M Assigned Patient Location: MRI Current Patient Location: Accession/Order Number: [id number] Exam Date: 01/24/2024 13:50 Report Date: 01/25/2024 [...] Signed By: 01/25/24 0701 DD/ 0659 TD/TT: Regeneration Operator:DUANEHRadiology, Radiologist, - 01/25/2024 [place] [address] Magnetic Resonance Report Signed Patient: LOYD BLANDON MR#: [id number] : 1955 Acct:[id number] Age/Sex: 68 / M ADM Date: 01/24/24 Loc: MRI Attending Dr: Non-Staff Physician Eriberto Ordering Physician: PhysicianNon-Staff Eriberto Date of Service: 01/24/24 Procedure(s): MR abdomen wo/w con Accession Number(s): [id number] cc: SANJAY ROBLEDO ; Physician,Non-Staff Eriberto The [place] [id number] Patient Name: LOYD BLANDON MRN: [facility]:[id number] date: 1955 Sex: M Assigned Patient Location: MRI Current Patient Location: Accession/Order Number: [id number] Exam Date: 01/24/2024 13:50 Report Date: 01/25/2024 [...] M.D. Signed By: 01/25/2401 DD/ 0659 TD/TT: Regeneration Operator: [facility] Centeriology Study observation (narrative)[facility] Abdomen WO and W contrast IVOrdered By: Radiologist Radiology on 98-29-0006WRWDGeneral Leonard [facility] Hospital Work Phone: Orders Onlyon 21-27-8594Tqnpcz [id number] Loyd Blandon 1955 M Date Provider Department Center 01/25/2024 [id number], HISTORICAL MP GI Medical [facility]avi No family history on fileNormalUniversity of Medical Center HospitalUS PARACENTESIS ABD W/IMAGEon 69-61-4244Uch[place] [address] Ultrasound Report Signed Patient: LOYD BLANDON MR#: [id number] : 1955 Acct:[id number] Age/Sex: 68 / M ADM Date: 01/24/24 Loc: US Attending Dr: Non-Staff Physician Eriberto Ordering Physician: PhysicianNonMinnieStaff Eriberto Date of Service: 01/24/24 Procedure(s): US paracentesis abd w/image Accession Number(s): [id number] cc: SANJAY ROBLEDO ; Physician,Non-Staff Eriberto [place] [address] Patient Name: LOYD BLANDON MRN: [facility]:[id number] date: 1955 Sex: M Assigned Patient Location: US Current Patient Location: Accession/Order Number: [id number] Exam Date: 01/24/2024 13:00 Report Date: 01/24/2024 [...] Signed By: 01/24/24 1529 DD/ 1527 TD/TT: Regeneration Operator:MONTYadiologteresa Radiologist, - 01/24/2024 [place] [address] Ultrasound Report Signed Patient: LOYD BLANDON MR#: [id number] : 1955 Acct:[id number] Age/Sex: 68 / M ADM Date: 01/24/24 Loc: US Attending Dr: Non-Staff Physician MJulio Cesar Ordering Physician: Physician,Non-Staff Eriberto Date of Service: 01/24/24 Procedure(s): US paracentesis abd w/image Accession Number(s): [id number] cc: SANJAY ROBLEDO ; Physician,Non-Staff Eriberto The [place] [address] Patient Name: LOYD BLANDON MRN: [facility]:[id number] date: 1955 Sex: M Assigned Patient Location: Current Patient Location: Accession/Order Number: [id number] Exam Date: 01/24/2024 13:00 Report Date: 01/24/2024 [...] M.D. Signed By: 01/24/241528 DD/ 26 TD/TT: Regeneration Operator: [facility] HospitalRadiology Study observation (narrative)[facility] HospitalUS PARACENTESIS ABD W/IMAGEOrdered By: Radiologist Radiology on 77-86-8462BWBLGeneral [facility] Hospital Work Phone: [place] Eye+Orbit - bilateralon 48-93-2283Zhrryqpkb: Cataract both eyes (OU) Testing Indication: Performed for preop measurements in the determination of an intraocular lens (IOL) for both eyes (OU) Test Reliability: Good quality both eyes (OU) Interpretation: Good measurements for intraocular lens (IOL) calculation purposes. Calculation made for both eyes (OU).[facility] Radiology Study observation (narrative)[facility]36on 26-48-385050Rciylu sent in [facility] hospitalNormalUniCleveland Clinic Children's Hospital for RehabilitationOrders Onlyon 01-16-2024 Orders [id number] Loyd Blandon 1955 [facility] Provider Department [place] 01/16/202445557-SPVFERENARD HAZEL GI Medical Pavi No family history on fileNormalUniCleveland Clinic Children's Hospital for RehabilitationXR ABDOMEN 1V on 54-62-5622[address] [address] XRay Report Signed Patient: LOYD BLANDON MR#: [id number] : 1955 Acct:[id number] Age/Sex: 68 / M ADM Date: 01/03/24 Loc: US Attending Dr: Non-Staff Physician Eriberto Ordering Physician: PhysicianYolandaStaff Eriberto Date of Service: 01/03/24 Procedure(s): XR abdomen 1V Accession Number(s): [id number] cc: SANJAY ROBLEDO ; PhysicianYolandaStaff Eriberto The [place] [address] Patient Name: LOYD BLANDON MRN: [facility]:[id number] date: 1955 Sex: M Assigned Patient Location: US Current Patient Location: Accession/Order Number: [id number] Exam Date: 01/03/2024 09:15 Report Date: 01/05/2024 [...] M.D. Signed By: 01/05/24710 DD/ 8 TD/TT: Regeneration Operator:TBHRadiology, Radiologist, MD - 01/05/2024 [place] [address] XRay Report Signed Patient: LOYD BLANDON MR#: [id number] : 1955 Acct:[id number] Age/Sex: 68 / M ADM Date: 01/03/24 Loc: US Attending Dr: Non-Staff Physician Eriberto Ordering Physician: PhysicianNonNkechi Wei Date of Service: 01/03/24 Procedure(s): XR abdomen 1V Accession Number(s): [id number] cc: SANJAY ROBLEDO ; PhysicianYolandaStaff Eriberto The [address] [id number] Patient Name: LOYD BLANDON MRN: [facility]:[id number] date: 1955 Sex: M Assigned Patient Location: US Current Patient Location: Accession/Order Number: [id number] Exam Date: 01/03/2024 09:15 Report Date: 01/05/2024 [...] M.D. Signed By: 01/05/24710 DD/ 8 TD/TT: Regeneration Operator: [facility] HospitalRadiology Study observation (narrative)[facility] HospitalXR ABDOMEN 1VOrdered By: Radiologist Radiology on 14-95-4563ZJFSGeneral [facility] Hospital Work Phone: elch AFP TUMOR MARKERon 85-43-0671IXV, SERUM, TUMOR MARKER2.5 ng/mL0.0 - 8.4 ng/mLNOMS HealthcareComment on above:[employer] Electrochemiluminescence Immunoassay (ECLIA) Values obtained with different assay methods or kits cannot be used interchangeably. Results cannot be interpreted as absolute evidence of the presence or absence of malignant disease. This test is not interpretable in females. Performed at: [facility] [employer] [id number] Machinery Mechanic: John Tang PhD, Phone: [phone] [facility] HospitalOrders Onlyon 51-61-0279Nmxgis [id number] Loyd Blandon 1955 M Date Provider Department Center 01/04/2024 [id number], HISTORICAL MP GI Medical Pavi No family history on fileNormalUniversity of Medical Center Hospital36on 13-47-355794Dmwmec patient with results with his repeat BMP [...] the day prior or the day of MRI.[facility]36----- Message from Rachel Doan MA sent at 01/03/2024 9:53 AM EDT ----- A new document has been added to this order with description The [facility] Lab results.[facility] HospitalLon 01-03-2024L Specimen: [id number] Received: 01/09/24 Status: HUSAM Estuardo Num: [id number] Spec Type: Cytology Subm Dr: Autumn Farnsworth MD Tissues: A ASCITES (ASCITES) Procedures: HE/2, Gross/Micro L4, Cyto Prepstain, PAPSTN Age/ Patient Sex Location Account Attending Physician Loyd Blandon 68/M LABELL [id number] Autumn Farnsworth MD SPEC NUM: [id number] RECD: 01/09/24 STATUS: HUSAM MARTE NUM: [id number] WEN: 01/03/[address]: Autumn Farnsworth MD ENTERED: 01/09/24 [facility] DR: SPEC TYPE: Cytology DEPT: [facility] ENTERED BY: [id number] RECV BY: [id number] ORDERED: HE/2, Gross/Micro L4, Cyto Prepstain, PAPSTN [...] are prepared for microscopic examination. (MG/kp) Specimen: [id number] Received: 01/09/24 Status: HUSAM Marte Num: [id number] Spec Type: Cytology Subm Dr: Autumn Farnsworth MD Tissues: A ASCITES (ASCITES) Procedures: HE/2, Gross/Micro L4, Cyto Prepstain, PAPSTN Patient: Loyd Blandon [id number] (Continued) Specimen: [id number] Received: 01/09/24 (Continued) Signed (signature on file) Windy Duque MD 01/10/24 1758 Specimen: [id number] Received: 01/09/24 Status: HUSAM Marte Num: [id number] Spec Type: Cytology Subm Dr: Autumn Farnsworth MD Tissues: A ASCITES (ASCITES) Procedures: HE/2, Gross/Micro L4, Cyto Prepstain, PAPSTN Patient: Loyd Blandon [id number] (Continued) Specimen: [id number] Received: 01/09/24 (Continued) Microscopic Description Microscopic examinations are performed supporting the above interpretation CPT Codes 31692 89754 Specimen: [id number] Received: 01/09/24 Status: HUSAM Marte Num: [id number] Spec Type: Cytology Subm Dr: Autumn Farnsworth MD Tissues: A ASCITES (ASCITES) Procedures: HE/2, Gross/Micro L4, Cyto Prepstain, PAPSTN Patient: Loyd Blandon [id number] (Continued) Signed (signature on file) Chin-Fabio Duque MD 01/10/[address] [place] [address] Physician GroupIreland Army Community Hospital Onlyon 00-66-9052Akrqix Only [id number] Loyd Blandon 1955 M Date Provider Department Center 01/03/2024 [id number], HISTORICAL MP GI Medical Pavi No family history on fileNormalUniversAshtabula County Medical CenterRMCOH PROTHROMBIN TIME INR W/O COUMon 51-96-0381Ksxplbdxpytxqb and review of laboratory resultsAbnormalNOMS HealthcarePT Coag (PPP) [Time]12.2 sHighNNorthwest Medical CenterTBH INR1.17NOSD HealthcareComment on above:DESIRED INR: 2.0-3.0 CONDITIONS NOT LISTED BELOW 2.5-3.5 FOR PROSTHETIC HEART VALVE REPLACEMENT 2.5-3.5 RECURRENT THROMBOSIS CLINISYNCNOMS HealthcareTelephoneon [id number] Loyd Blandon 1955 Date Provider Department Center 01/03/2024 3856-MARITO OQUENDO [facility] GASTRO None No family history on fileNormalUniversity of Medical Center HospitalUS PARACENTESIS ABD W/IMAGEon 87-88-7443Etq [address] [address] Ultrasound Report Signed Patient: LOYD BLANDON MR#: [id number] : 1955 Acct:[id number] Age/Sex: 68 / M ADM Date: 01/03/24 Loc: US Attending Dr: Non-Staff Physician Eriberto Ordering Physician: Physician,Non-Staff Eriberto Date of Service: 01/03/24 Procedure(s): US paracentesis abd w/image Accession Number(s): [id number] cc: SANJAY ROBLEDO ; Physician,Non-Staff Eriberto The [address] [address] Patient Name: LOYD BLANDON MRN: [facility]:[id number] date: 1955 Sex: M Assigned Patient Location: US Current Patient Location: US Accession/Order Number: [id number] Exam Date: 01/03/2024 08:00 Report Date: 01/03/2024 [...] M.D. Signed By: 01/03/2441 DD/ 8 TD/TT: Regeneration Operator:TBHRadiology, Radiologist, - 01/03/[address] [address] Ultrasound Report Signed Patient: LOYD BLANDON MR#: [id number] : 1955 Acct:[id number] Age/Sex: 68 / M ADM Date: 01/03/24 Loc: US Attending Dr: Non-Staff Physician Eriberto Ordering Physician: PhysicianYolandaStaff Eriberto Date of Service: 01/03/24 Procedure(s): US paracentesis abd w/image Accession Number(s): [id number] cc: SANJAY ROBLEDO ; Physician,YolandaStaff Eriberto The [address] [address] Patient Name: LOYD BLANDON MRN: [id number] date: 1955 Sex: M Assigned Patient Location: US Current Patient Location: Accession/Order Number: [id number] Exam Date: 01/03/2024 08:00 Report Date: 01/03/2024 [...] M.D. Signed By: 01/03/24940 DD/ 8 TD/TT: Regeneration Operator: EDDIE HealthcareRadiology Study observation (narrative)EDDIE HealthcareUS PARACENTESIS ABD W/IMAGEOrdered By: Radiologist Radiology on 10-72-1805VLFL [employer] Work Phone: [phone] 45-59-976068Eqkgnn patient to clarify Lasix dosage, instructed to take Lasix 60mg daily. expressed understanding. I did instruct her that we would like repeat BMP to assess potassium and Creatinine, Monday or Monday. She is planning to have this done at [facility] on Monday. I did provide the fax number to our clinic for results. She is awaiting scheduling for MRI and Abdominal XR at [place].[facility] HospitalRefillon [id number] Loyd Blandon 1955 M [facility] Provider Department Center 12/30/202313668-EZEEBRENARD TAYLOR MP GI Medical Pavi No family history on file Reason for Visit and Comments: Med Refill [207308][facility]36on Patient's called in to say that the lab at [place] told her insurance doesn't cover the Enteric Bacterial DNA stool and it is $1500, they told her if we sent in an order for a stool culture is would be similar and insurance would cover that. Also the lab doesn't do the fecal fat 24 hours, but will do the fecal fat 72 hours. Please advise.[facility]36 Patient's calling again for clarification of lasix dosage 60mg daily on the office note, 60mg BID on the prescription. She is concerned about giving him the correct dosage and frequency.[facility] Documentationon [id number] Loyd Blandon 1955 [facility] Provider Department Center 12/29/2023 ZAKIYA GRANADOS MP GI Medical Pavi No family history on fileNormalUniversity of Medical Center HospitalOrders Onlyon 86-45-3346Tkemvl [id number] Loyd Blandon 1955 [facility] Provider Department Center 12/29/20232030-EKATERINA ALMODOVAR [facility] GURPREETI No family history on fileNormalUniversity J.W. Ruby Memorial HospitalTelephoneon [id number] Loyd Blandon 1955 M Date Provider Department Center 12/29/2023 BROOKLYNN ZEPEDA MP [facility] Pavi No family history on [facility]36on 07-26-274560Volkvzw's calling for clarification of Lasix dosage, on discharge plan it is written as 60mg daily, but the pharmacy gave her a bottle of lasix where the sig is written 60mg twice daily. She anxious and wants to make sure she gives him the correct dosage and frequency.Please advise.NormalKindred Hospital DaytonTelephoneon [id number] Loyd Blandon 1955 M Date Provider Department Center 12/28/2023 39946-OFALFYBROOKLYNN MORALES MP [facility] Pavi No family history on [facility]37on 45-43-950590Dh your way out today, please get lab [...] (same day). This can be done at [place]. Please continue Rifaximin 550mg twice daily, and Lactulose once daily for encephalopathy Schedule a follow up appointment in 3 months.NormalUnHighland District HospitalAFP TUMOR MARKERon 37-45-0687LWAUR FETOPROTEIN TUMOR MARKER3 ng/mLNormal 0-9UnHighland District HospitalComment on above:Result Comment: INTERPRETIVE INFORMATION: Alpha [...] reference intervals for this test in the [employer] Laboratory Test Directory ([employer]). Performed By: [employer] [address] [place] [address] [employer] Professor: Ira Lutz MD, PhD CLIA Number: [id number] By: #### [id number] ####[facility] ([facility])[address] [place], [place] [address]GBDel 09-30-3468Pnuavxzdnyb distribution width (RBC) [Ratio]15.1 %High11.5-15.0UnHighland District HospitalComment on above:Performed By: #### CHY855 ####[facility] (BEAKER)[address] [place], [place] [address]AMZVNKFETGD MEAN CORPUSCULAR HEMOGLOBIN CONCENTRATION (G/DL) BY MRTYEOAJC56.2 g/uERjlnlj42.0-35.0UnHighland District HospitalComment on above:Performed By: #### HIY008 ####[facility] (BEAKER)[address] [place], [place] [address]Kkbqiwkptl (Bld) [Volume fraction]38.5 %Low39.0-55.0 Kindred Hospital DaytonComment on above:Performed By: #### [id number] ####[facility] (BEAKER)[address] [place], [place] [address]Jrzyaksfvf (Bld) [Mass/Vol]12.8 g/dLLow13.0-17.0UnHighland District HospitalComment on above:Performed By: #### [id number] ####[facility] (BEAKER)[address] [place], [place] [address]FNF (RBC) [Entitic mass]32.8 lmDobiwx72.0-33.0UnHighland District HospitalComment on above:Performed By: #### [id number] ####[facility] ([facility])[address] [place] [address]LZK (RBC) [Entitic vol] 98.7 mBXgub15.0-98.0UnHighland District HospitalComment on above: Performed By: #### [id number] ####[facility] ([facility])[address] [address]MTXEDUWLB (10*3/UL) IN BLOOD AUTOMATED IUVSK017 10*3/uLNormal 150-400UnHighland District HospitalComment on above:Performed By: #### [id number] ####[facility] ([facility])[address] [place] [address]ARL (Bld) [#/Vol]3.90 10*6/uLLow4.20-5.70UnHighland District HospitalComment on above:Performed By: #### [id number] ####[facility] ([facility])[address] [place] [address]PBY (Bld) [#/Vol]4.72 10*3/uLNormal4.00-10.60UnHighland District HospitalComment on above:Performed By: #### [id number] ####[facility] ([facility])[address] [address]TLIELVMQQZCNG METABOLIC PANELon 13-93-3201Qlvwqjz [Mass/Vol]3.1 g/dLLow3.5-5.7UnHighland District HospitalComment on above:Performed By: #### [id number] ####[facility] ([facility])[address] [address]LOX [Catalytic activity/Vol]120 U/L Wbvu63-788EqgrgzztivHighland District HospitalComment on above:Performed By: #### [id number] ####[facility] ([facility])[address] [place], [place] [address]PUP [Catalytic activity/Vol]25 U/LNormal7-52UnHighland District Hospital Comment on above:Performed By: #### [id number] ####[facility] ([facility])[address] [place], [place] [address]Ofkqd gap [Moles/Vol]12 mmol/LNormal7-20UnHighland District HospitalComment on above:Performed By: #### [id number] ####[facility] ([facility])[address] [place], [place] [address]NOE [Catalytic activity/Vol]46 U/IHcoc58-77WkgsaxvsmhHighland District HospitalComment on above: Performed By: #### [id number] ####[facility] ([facility])[address] [place], [place] [address]Rrltbypjv [Mass/Vol]1.9 mg/dLHigh0.3-1.0UnHighland District HospitalComment on above:Performed By: #### [id number] ####[facility] ([facility])[address] [place], [place] [address]Veblqdg [Mass/Vol]9.0 mg/dLNormal 8.6-10.3UnHighland District HospitalComment on above:Performed By: #### [id number] ####[facility] ([facility])[address] [place], [place] [address]Bisrdrch [Moles/Vol]98 mmol/CVoqual63-435OpqednevfmHighland District HospitalComment on above:Performed By: #### [id number] ####[facility] ([facility])[address] [place], [place] [address]GE0 [Moles/Vol]26 mmol/MXqnutu13-63RravdjyiyzHighland District HospitalComment on above:Performed By: #### [id number] ####[facility] ([facility])[address] [place], [place] [address]Ximmqnzuyv [Mass/Vol]1.11 mg/dLNormal 0.70-1.30UnHighland District HospitalComment on above:Performed By: #### [id number] ####[facility] ([facility])[address] [place] [address]VKTZPPRPIN FILTRATION RATE ML/MIN/1.73 SQ M.PCSKOWUWQ15.4 mL/min/1.73m*2Normal>60.0 [facility]red Hospital DaytonComment on above:Result Comment: The [facility]???s estimated glomerular filtration rate (eG FR) will [...] group of individuals. Performed By: #### [id number] ####[facility] ([facility])[address] [place] [address]Xceocrp [Mass/Vol]111 mg/hDBqlh94-852NtinqmxoncHighland District HospitalComment on above:Performed By: #### [id number] ####[facility] ([facility])[address] [place] [address]Cxxxfgigo [Moles/Vol]4.4 mmol/LNormal 3.5-5.1UnHighland District HospitalComment on above:Performed By: #### [id number] ####[facility] ([facility])[address] [place] [address]Xojkpwk [Mass/Vol]7.3 g/dLNormal6.0-8.3UnHighland District HospitalComment on above:Performed By: #### [id number] ####[facility] ([facility])[address] [place] [address]Kcosai [Moles/Vol]132 mmol/QDyg982-269VxxistzlulHighland District HospitalComment on above:Performed By: #### [id number] ####[facility] ([facility])[address] [place] [address]Uumy nitrogen [Mass/Vol]17 mg/dLNormal 7-25UnHighland District HospitalComment on above:Performed By: #### [id number] ####[facility] (BEAKER)[address] [place] [address]CZBS NITROGEN/CREATININE (MASS RATIO) IN SER/PLAS15.3NormalUniCleveland Clinic Children's Hospital for RehabilitationComment on above:Performed By: #### LAB17 ####[facility] (BEAKER)[address] [place] [address]Kmkwg [id number] JamiaLoyd 1955 M Date Provider Department Center 12/27/2023 2244-[facility] MP LAB RESOURCE MP DRAW Medical Pavi No family history on fileNormalUniversProMedica Bay Park HospitalOffice Visiton 60-45-7749Skemsf-up [id number] Loyd Blandon 1955 M Date Provider Department Center 12/27/2023 298-IRENA JOHNSON GI Medical Pavi No family history on file Level of Service:11525 [place] OFFICE/OUTPATIENT ESTABLISHED HIGH MDM 40 MIN (GC) Reason for Visit and Comments: Follow-up [860585] Cirrhosis [239] Ascites [295]NormalUnHighland District HospitalPROTIME-INRon 12-27-2023 INR IN PPP BY COAGULATION ASSAY1.67Ebae7.90-1.10UnHighland District HospitalComment on above:Result Comment: ACCCP RECOMMENDED INR [...] OPTIMAL THERAPEUTIC RANGE. CHEST 1995;108:231S-246S.Performed By: #### [id number] #### [facility] (BEAKER) [address] [place], [place] [address]BTKRMHATSVM TIME (PT) IN PPP BY COAGULATION ASSAY15.3 Seconds High12.3-14.8UnHighland District HospitalComment on above:Performed By: #### [id number] #### [facility] (BEAKER) [address] [place], [place] [address]ao [phone] called and spoke with the patient's in regards to his recent lab work after increasing his diuretics. His creatinine and electrolytes are grossly stable after increasing his Lasix and Aldactone. We will continue with the current regimen of Lasix 40 twice daily and Aldactone 200 mg daily and follow-up in hepatology clinic on 12/27/2023.NormalUnHighland District HospitalELCH AFP TUMOR MARKERon 30-52-8242AIC, SERUM, TUMOR MARKER2.7 ng/mL0.0 - 8.4 ng/mL [facility] HospitalComment on above:[facility] Electrochemiluminescence Immunoassay (ECLIA) Values obtained with different assay methods or kits cannot be used interchangeably. Results cannot be interpreted as absolute evidence of the presence or absence of malignant disease. This test is not interpretable in females. Performed at: [facility] Lab[address] [id number] Machinery Mechanic: John Tang PhD, Phone: [phone] CLINISYNCNOMS HealthcareOrders Onlyon 53-51-2737Ihnxzi [id number] Loyd Blandon 1955 M Date Provider Department Center 12/21/2023 L5477-YJEOACOVMAGALIS MOORE MP GI Medical Pavi No family history on fileNormalUniversity of Medical Center HospitalTelephoneon [id number] Loyd Blandon 1955 M Date Provider Department Center 12/21/2023 02165-CTNSZ, RENARD MP GI Medical Pavi No family history on fileNormalUniversity of Medical Center HospitalALL CBC WITH AUTO DIFFon 60-31-8507HVFPUZEYQ ABSOLUTE AUTO0.0NOMS HealthcareBasophils/100 WBC (Bld)0.8 %0.2 - 2.0 %NOMS HealthcareEosinophils/100 WBC (Bld)2.7 %0.9 - 7.0 % NOMS HealthcareErythrocyte distribution width (RBC) [Ratio]14.9 %11.0 - 15.0 % NOMS HealthcareHematocrit (Bld) [Volume fraction]37.6 %Low42.0 - 54.0 %NOMNevada Regional Medical CenterHemoglobin (Bld) [Mass/Vol]12.7 g/dLLow14.0 - 18.0 g/dLNOMadison Medical Center IMMATURE GRANULOCYTES ABS AUTO0.02NOMS [facility] Hospital DaytonImmature granulocytes/100 WBC (Bld)0.4 %0.0 - 0.5 %NOM HealthcareInterpretation and review of laboratory resultsAbnormalNOMadison Medical CenterLYMPHOCYTES ABSOLUTE AUTO0.7LowNOMS Healthcare Lymphocytes/100 WBC (Bld)15.2 %Low20.5 - 60.0 %[facility] Regional Medical CenterH (RBC) [Entitic mass]33.6 pg25.9 - 34.0 pgNOMercy Hospital WashingtonHC (RBC) [Mass/Vol]33.8 g/dL29.9 - 35.2 g/dLNOMadison Medical CenterMCV (RBC) [Entitic vol]99.5 bIKorf10.0 - 94.0 fLNOMadison Medical CenterMONOCYTES ABSOLUTE AUTO0.6NOMS HealthcareMonocytes/100 WBC (Bld)11.9 % 1.7 - 12.0 %NOMS HealthcareNEUTROPHILS ABSOLUTE AUTO3.3N[facility] Neutrophils/100 WBC (Bld)69.0 %43.0 - 75.0 %NOMS HealthcarePlatelet mean volume (Bld) [Entitic vol]9.8 fL9.5 - 13.5 fLNOMadison Medical CenterTBH EO #0.1[facility] Healthcare TB CCN950KSBO Access Hospital DaytonTB RBC3.78LowNOMS Access Hospital DaytonTB WBC4.8[facility] CLINISYNCNOMS HealthcareCA ECHO DOPPLER COMPLETEon 91-24-6749Qoz [place] [id number] Cardiology Report Signed Patient: LOYD BLANDON MR#: [id number] : 1955 Acct:[id number] Age/Sex: 68 / M ADM Date: 12/20/23 Loc: CARD Attending Dr: XUAN ESPINO Ordering Physician: XUAN ESPINO Date of Service: 12/20/23 Procedure(s): CA echo doppler complete Accession Number(s): [id number] cc: SANJAY ROBLEDO ; XUAN ESPINO Patient Name: LOYD BLANDON MR#: [id number] : 1955 Exam Date: 12/20/2023 Ordering Doctor: [...] 3.77 cm2, 3.49 cm2, 4.08 cm2 Deceleration [place]: Pressure Half-Time: Peak Velocity(Antegrade Flow): 0.98 m/s, [...] content not included)...TBHRadiology, Radiologist, - 12/20/2023 [place] [address] Cardiology Report Signed Patient: LOYD BLANDON MR#: [id number] : 1955 Acct:[id number] Age/Sex: 68 / M ADM Date: 12/20/23 Loc: CARD Attending Dr: XUAN ESPINO Ordering Physician: XUAN ESPINO Date of Service: 12/20/23 Procedure(s): CA echo doppler complete Accession Number(s): [id number] cc: SANJAY ROBLEDO ; XUAN ESPINO Patient Name: LOYD BLANDON MR#: [id number] : 1955 Exam Date: 12/20/2023 Ordering Doctor: [...] 3.77 cm2, 3.49 cm2, 4.08 cm2 Deceleration [place]: Pressure Half-Time: Peak Velocity(Antegrade Flow): 0.98 m/s, [...] M.D. Signed By: 12/20/231720 DD/ 19 TD/TT: Regeneration Operator: [facility] HospitalRadiology Study observation (narrative)[facility] ECHO DOPPLER COMPLETEOrdered By: Radiologist Radiology on 01-81-5356[facility] Work Phone: Orders Onlyon 88-39-9791Ykpwni [id number] Loyd Blandon 1955 M Date Provider Department Center 12/20/2023 C2238-YPONNGDM, HISTORICAL MP GI Medical Pavi No family history on fileNormalUniversity J.W. Ruby [facility] Hospital36on 98-91-672788Idghdn faxed lab orders to [facility]36----- Message from Renard Hazel MD sent at 12/14/2023 1:36 PM EDT ----- Petra, I sent over a prescription for his diuretics and recommended that they have repeat CMP next week. The order has been placed, can you please fax this to [facility] so that they can get them done next week? Thank you so much ----- Message ----- From: Rachel Doan MA Sent: 12/13/2023 1:35 PM EDT To: Renard Hazel MD A new document has been added to this order with description CMP results [facility]36Patient's called last week asking for increased [...] assess his diuretics further at that time. [facility] HospitalOrders Onlyon 93-79-0723Idzoyr Only [id number] Loyd Blandon 1955 M Date Provider Department Center 12/14/202387789-XWGNQRENARD HAZEL MP Medical Pavi No family history on [facility] CampusTelephoneon [id number] Loyd Blandon 1955 M Date Provider Department Center 12/14/202340209-DHUQRRENARD HAZEL MP Medical Pavi No family history on [facility] CampusCCF CMP (CMP) (FOR REMOTE [facility] USE)on 69-62-3935Kbykbzy [Mass/Vol]2.5 g/dLLow3.4 - 5.0 g/dLNOMS HealthcareALBUMIN GLOBULIN [...] g/dL6.4 - 8.2 g/dL NOMS HealthcareSodium [Moles/Vol]135 mmol/SCdw384 - 145 mmol/LNOMS HealthcareTBH EGFR-NON AF KRZLTCCH29Hhh88 - PINFNOMS HealthcareUrea nitrogen [Mass/Vol]15.0 mg/dL7.0 - 18.0 mg/dLNOMS HealthcareUrea nitrogen/Creatinine [Mass ratio]11.6 mg/mgNOMS HealthcareCLINISYNCNOMS HealthcareOrders Onlyon 20-75-1553Iyyzxo Only [id number] Loyd Blandon 1955 M Date Provider Department [place] 12/13/2023 Z5552-IZUETMJP, HISTORICAL MP GI Medical Pavi No family history on fileNormalUniversity of Medical Center Hospital36on 93-75-119004Eqnqxhl's reports that the patient was recently hospitalized [...] has an appointment in hepatology clinic on 12/27/2023.[facility]36Wife of patient calls today stating that when they went for paracentesis at [place] last week - the patient was admitted. [...] until clinic visit with Dr. Johnson on 12/27/2023.[facility] SystemOrders Onlyon 17-20-2090Otdboe [id number] Loyd Blandon 1955 M Date Provider Department Center 12/11/202357030-PDPWXRENARD TAYLOR MP Medical Pavi No family history on fileNormalUniCleveland Clinic Children's Hospital for RehabilitationTelephoneon [id number] Loyd Blandon 1955 M Date Provider Department Center 12/11/202305795-FAUAJRENARD HAZEL MP Medical Pavi No family history on fileNormalUniCleveland Clinic Children's Hospital for RehabilitationGRAM STAIN RESULTon 32-13-1527UNZF STAIN RESULT Gram Stain Result NOMS HealthcareGRAM STAIN RESULTNo white blood cells seen.NOMS HealthcareGRAM STAIN RESULTNOMS HealthcareGRAM STAIN RESULTNo organisms seenNOMS HealthcareGRAM STAIN RESULTPerformed at: - [facility] HealthcareGRAM STAIN RESULT [address] [place], [place] [address]UPEQ HealthcareGRAM STAIN RESULTLab Director: John Tang PhD, Phone: [phone] R. Darnall Army Medical Center Pleural fluid CLINISYNCNOMS HealthcareLon 68-38-7959DDydfbnwn: Received: 12/11/23 Status: HUSAM Marte Num: [id number] Spec Type: Cytology Subm Dr: Devyn Winter DO Tissues: A PLEURAL FLUID (PLEUR) Procedures: HE/2, Gross/Micro L4, Cyto Prepstain, PAPSTN Age/ Patient Sex Location Account Attending Physician Loyd Blandon 68/M LABELL [id number] Devyn Winter DO SPEC NUM: BC RECD: 12/11/23 STATUS: HUSAM PATELMartin NUM: [id number] WEN: 12/08/[address]: Devyn Winter DO ENTERED: 12/11/[address]: Aliza Arroyo SPEC TYPE: Cytology DEPT: [facility] ENTERED BY: [id number] RECV BY: [id number] ORDERED: HE/2, Gross/Micro L4, Cyto Prepstain, PAPSTN [...] Specimen: Received: 12/11/23 Status: SERAEmilie Marte Num: [id number] Spec Type: Cytology Subm Dr: Devyn Winter DO Tissues: A PLEURAL FLUID (PLEUR) Procedures: HE/2, Gross/Micro L4, Cyto Prepstain, PAPSTN Patient: Loyd Blandon [id number] (Continued) Specimen: BC24 Received: 12/11/23 (Continued) Signed (signature on file) Windy Duque MD 12/14/23 1503 Specimen: BC24 Received: 12/11/23 Status: HUSAM Marte Num: [id number] Spec Type: Cytology Subm Dr: Devyn Winter DO Tissues: A PLEURAL FLUID (PLEUR) Procedures: HE/2, Gross/Micro L4, Cyto Prepstain, PAPSTN Patient: JamiaLoyd [id number] (Continued) Specimen: Received: 12/11/23 (Continued) CPT Codes 68489 12603 Specimen: Received: 12/11/23 Status: HUSAM Marte Num: [id number] Spec Type: Cytology Subm Dr: Devyn Winter DO Tissues: A PLEURAL FLUID (PLEUR) Procedures: HE/2, Gross/Micro L4, Cyto Prepstain, PAPSTN Patient: Loyd Blandon [id number] (Continued) Signed (signature on file) Windy Duque MD 12/14/23 [facility] Physician GroupLon 62-73-1321XAhxhnbut: BC24 Received: 12/14/23 Status: HUSAM Remartin Num: [id number] Spec Type: Cytology Subm Dr: Ward Ferrer MD Tissues: A ASCITES (ASC) Procedures: HE/2, Gross/Micro L4, Cyto Prepstain, PAPSTN Age/ Patient Sex Location Account Attending Physician Loyd Blandon 68/M LABELL [id number] Ward Ferrer MD SPEC NUM: [id number] RECD: 12/14/23 STATUS: SERAEmilie MARTE NUM: [id number] WEN: 12/07/23- SUBM DR: Ward Ferrer MD ENTERED: 12/14/23 [facility] DR: Dina,Lab SPEC TYPE: Cytology DEPT: [facility] ENTERED BY: [id number] RECV BY: [id number] ORDERED: HE/2, Gross/Micro L4, Cyto Prepstain, PAPSTN [...] BC24 Received: 12/14/23 Status: HUSAM Marte Num: [id number] Spec Type: Cytology Subm Dr: Ward Ferrer MD Tissues: A ASCITES (ASC) Procedures: HE/2, Gross/Micro L4, Cyto Prepstain, PAPSTN Patient: JamiaLoyd [id number] (Continued) Specimen: BC Received: 12/14/23 (Continued) Signed (signature on file) Windy Duque MD 12/19/23 1440 Specimen: Received: 12/14/23 Status: HUSAM Marte Num: [id number] Spec Type: Cytology Subm Dr: Ward Ferrer MD Tissues: A ASCITES (ASC) Procedures: HE/2, Gross/Micro L4, Cyto Prepstain, PAPSTN Patient: JamiaLoyd [id number] (Continued) Specimen: Received: 12/14/23 (Continued) CPT Codes 52612 11594 Specimen: Received: 12/14/23 Status: HUSAM Marte Num: [id number] Spec Type: Cytology Subm Dr: Ward Ferrer MD Tissues: A ASCITES (ASC) Procedures: HE/2, Gross/Micro L4, Cyto Prepstain, PAPSTN Patient: Loyd Blandon [id number] (Continued) Signed (signature on file) Windy Duque MD 12/19/[address] [place] [address] Physician GroupUS PARACENTESIS ABD W/IMAGEon 12-07-[address] [address] Ultrasound Report Signed Patient: LOYD BLANDON MR#: [id number] : 1955 Acct:[id number] Age/Sex: 68 / M ADM Date: 12/07/23 Loc: US Attending Dr: Non-Staff Physician M.DAshley Ordering Physician: Physician,Non-Staff MJulio Cesar Date of Service: 12/07/23 Procedure(s): US paracentesis abd w/image Accession Number(s): [id number] cc: SANJAY ROBLEDO ; Physician,Non-Staff MJulio Cesar [address] [address] Patient Name: LOYD BLANDON MRN: [id number] date: 1955 Sex: M Assigned Patient Location: ED.MAIN Current Patient Location: ED.MAIN Accession/Order Number: [id number] Exam Date: 12/07/2023 12:20 Report Date: 12/07/2023 [...] Signed By: 12/07/23 1513 DD/ 1511 TD/TT: Regeneration Operator:MONTYadiologteresa, Radiologist, - 12/07/2023 [place] [address] Ultrasound Report Signed Patient: LOYD BLANDON MR#: [id number] : 1955 Acct:[id number] Age/Sex: 68 / M ADM Date: 12/07/23 Loc: US Attending Dr: Bryanna-Staff Physician Wei Ordering Physician: Maddy Duarte M.D. Date of Service: 12/07/23 Procedure(s): US paracentesis abd w/image Accession Number(s): [id number] cc: SANJAY ROBLEDO ; PhysicianMaddy M.D. The [address] [address] Patient Name: LOYD BLANDON MRN: [id number] date: 1955 Sex: M Assigned Patient Location: ED.MAIN Current Patient Location: ED.MAIN Accession/Order Number: [id number] Exam Date: 12/07/2023 12:20 Report Date: 12/07/2023 [...] Signed By: 12/07/23 1513 DD/ 1511 TD/TT: Regeneration Operator: EDDIE HealthcareRadiology Study observation (narrative)EDDIE MixUS PARACENTESIS ABD W/IMAGEOrdered By: Radiologist Radiology on 19-47-1433[employer] Work Phone: [phone] 52-67-194832Tc. Burns in clinic, order placed and faxed to [facility] at [phone]d Clinic Children's Hospital for Rehabilitation36Wife calls stating that patient is in need of an order for paracentesis. Order will need to be sent to [facility] HospitalOrders Onlyon 93-16-8850Qhnrst [id number] Loyd Blandon 1955 M Date Provider Department Center 12/01/202351933-VWSNMRENARD HAZEL MP GI Medical Pavi No family history on fileNormalUniversity of Medical Center HospitalHPon 70-58-9568CY Attestation signed by Irena Johnson MD at [...] PROT B12/Folate/Iron studies: No results found for: YWBAFPJG18 , FOLATE , IRON , TIBC , UIBC , IRONSAT , FERRITIN ASSESSMENT AND PLAN Loyd Blandon is a 68 y.o. male who has a known past medical history significant for alcoholic liver cirrhosis, Recinos's esophagus and hepatic encephalopathy is scheduled today for an EGD for esophageal varices screening. Plan: Plan for EGD today for esophageal varices secondary to liver cirrhosis.Normal [facility] DaytonPOCT GLUCOSE METER UNSOLICITED RESULTSon 47-46-9436Jtpykfa [Mass/Vol]101 mg/zSJofzkd16-219ClkvywpbwdHighland District HospitalComment on above:Order Comment: Waived Testing in the ED is performed under the ED CLIA certificate #[id number].Result Comment: jhsusiemanPerformed By: #### [id number] ####[facility] (BEAKER)[address] [place], [place] [address] on 17-55-241663Wwvjyg submittedNormalUniversProMedica Bay Park HospitalOrders Onlyon 90-69-3630Ywvvuk [id number] Loyd Blandon 1955 M Date Provider Department Center 11/21/2023 BROOKLYNN ZEPEDA MP GI Medical Pavi No family history on fileNormalUniversity J.W. Ruby Memorial HospitalPrep for Procedureon 13-53-4796Nich for [id number] Loyd Blandon 1955 M Date Provider Department Center 11/21/2023 IRENA SCHMIDT [facility] GISC GEORGEI No family history on fileNormalUniversity J.W. Ruby Memorial HospitalMR ABDOMEN W AND WO CONTRASTon 60-66-9084LF ABDOMEN W AND WO CONTRASTHistory: Cirrhosis with [...] recommended. Electronically signed: Adalid Montiel. 9Invalid Interpretation CodeUnHighland District HospitalOrders Only16-14-7277Vpxuaa [id number] Loyd Blandon 1955 M [facility] Department Center 11/08/2023 57194-BBAVYW, BETH GI Medical Pavi No family history on fileNormalUniversProMedica Bay Park Hospital36on 42-44-459036Seqhjyp's calling to verify that Dr. Miles will now be prescribing the Famotidine and Baclofen because the previously prescribing physician no longer will now that he is a [facility] GI patient. The preferred pharmacy is [facility] in [place]. Please advise and these orders can then be pended.NormalUnHighland District HospitalOrders Only19-54-9957Vfxgqt [id number] Loyd Blandon [address] [facility] Department Center 11/02/2023 D6257-ZQBCLGCL, [facility] MP GI Medical Pavi No family history on fileNormalUniversity of Medical Center Hospital36on 36-95-474687P called the patient and his to discuss [...] undergoing MRI of his liver on the .[facility] HospitalOrders Onlyon 67-17-2304Creieb [id number] Loyd Blandon 1955 M Date Provider Department Center 10/26/202381271-AADAARENARD HAZEL MP [facility] No family history on fileNormalUniverssheltering arms hospital of Medical Center HospitalTelephoneon [id number] Loyd Blandon 1955 M Date Provider Department Center 10/26/202378273-CDEGMRENARD HAZEL MP [facility] No family history on fileNormalUniverssheltering arms hospital of Medical Center HospitalOrders Onlyon 72-07-7648Ouxldf [id number] Loyd Blandon 1955 M Date Provider Department Center 10/24/2023 Z5855-XWCJBPYW, [facility] Medical Pav No family history on fileNormalUniverssheltering arms hospital of Medical Center HospitalALL BASIC METABOLIC PANELon 19-11-0025Axrge gap [Moles/Vol]14.7 mmol/LNOMS Healthcare Calcium [Mass/Vol]9.2 mg/dL8.5 - 10.1 mg/dLNOMS HealthcareChloride [Moles/Vol] 100 mmol/L98 - 107 mmol/LNOMS HealthcareCO2 [Moles/Vol]24.7 mmol/L21.0 - 32.0 mmol/LNOMS HealthcareCreatinine [Mass/Vol]1.40 mg/dLHigh0.70 - 1.30 mg/dLNOMS HealthcareGFR/1.73 sq M.predicted CKD-EPI (S/P/Bld) [Vol rate/Area]>6060 - PINF [facility] Community HospitalGlucose [Mass/Vol]130 mg/gTQdmc65 - 106 mg/dLGeneral Leonard Wood Army Community Hospital Interpretation and review of laboratory resultsAbnoLancaster General HospitalPotassium [Moles/Vol]4.4 mmol/L3.5 - 5.1 mmol/LNOMS HealthcareSodium [Moles/Vol]135 mmol/L Orm415 - 145 mmol/LNNorthwest Medical CenterTBH EGFR-NON AF SGWLSNAA42Ubl04 - PINFNOMadison Medical CenterUrea nitrogen [Mass/Vol]19.0 mg/dLHigh7.0 - 18.0 mg/dLGeneral Leonard Wood Army Community Hospital Urea nitrogen/Creatinine [Mass ratio]13.6 mg/mgGeneral Leonard Wood Army Community HospitalCLINISYNCNNorthwest Medical CenterALL CBC WITH AUTO DIFFon 95-24-2510ZWIPPDBAR ABSOLUTE AUTO0.0NOMadison Medical CenterBasophils/100 WBC (Bld)0.8 %0.2 - 2.0 %[facility] HospitalEosinophils/100 WBC (Bld)2.6 %0.9 - 7.0 %[facility] HospitalErythrocyte distribution width (RBC) [Ratio]14.6 %11.0 - 15.0 %[facility] HospitalHematocrit (Bld) [Volume fraction]37.5 %Low42.0 - 54.0 %[facility] HospitalHemoglobin (Bld) [Mass/Vol]12.8 g/dLLow14.0 - 18.0 g/dLGeneral Leonard Wood Army Community HospitalIMMATURE GRANULOCYTES ABS AUTO0.03NOMadison Medical Center Immature granulocytes/100 WBC (Bld)0.6 %High0.0 - 0.5 %[facility] Interpretation and review of laboratory resultsAbnoLancaster General Hospital LYMPHOCYTES ABSOLUTE AUTO0.8LowGeneral Leonard Wood Army Community HospitalLymphocytes/100 WBC (Bld)15.2 %Low 20.5 - 60.0 %[facility] HospitalMCH (RBC) [Entitic mass]34.0 pg25.9 - 34.0 pgGeneral Leonard Wood Army Community HospitalMCHC (RBC) [Mass/Vol]34.1 g/dL29.9 - 35.2 g/dLGeneral Leonard Wood Army Community HospitalMCV (RBC) [Entitic vol]99.7 eRGlgp59.0 - 94.0 fLGeneral Leonard Wood Army Community HospitalMONOCYTES ABSOLUTE AUTO0.7 NOMS HealthcareMonocytes/100 WBC (Bld)14.0 %High1.7 - 12.0 %[facility] Healthcare NEUTROPHILS ABSOLUTE AUTO3.4NOMS HealthcareNeutrophils/100 WBC (Bld)66.8 %43.0 - 75.0 %NOMS HealthcarePlatelet mean volume (Bld) [Entitic vol]9.8 fL9.5 - 13.5 fL [facility] HealthcareTBH EO #0.1NOMS HealthcareTB KVD184MLPK Access Hospital DaytonTB RBC3.76Low NOMEllett Memorial Hospital WBC5.1NOMS HealthcareCLINISYNCNGolden Valley Memorial HospitalOH PROTHROMBIN TIME INR W/O COUMon 75-03-4313Xvkfsvxpswvmev and review of laboratory resultsAbnormalNOMS HealthcarePT Coag (PPP) [Time]12.2 sHighNCoxHealth INR1.17NOMS HealthcareComment on above:DESIRED INR: 2.0-3.0 CONDITIONS NOT LISTED BELOW 2.5-3.5 FOR PROSTHETIC HEART VALVE REPLACEMENT 2.5-3.5 RECURRENT THROMBOSIS CLINISYNCNOMS HealthcareUS PARACENTESIS ABD W/IMAGEon 94-48-7160JndBurr, [place] [address] Ultrasound Report Signed Patient: LOYD BLANDON MR#: [id number] : 1955 Acct:[id number] Age/Sex: 68 / M ADM Date: 10/23/23 Loc: US Attending Dr: Non-Staff Physician Eriberto Ordering Physician: Physician,Non-Staff Eriberto Date of Service: 10/23/23 Procedure(s): US paracentesis abd w/image Accession Number(s): [id number] cc: SANJAY ROBLEDO ; Physician,Non-Staff Eriberto The [address] [address] Patient Name: LOYD BLANDON MRN: [id number]:[id number] date: 1955 Sex: M Assigned Patient Location: US Current Patient Location: US Accession/Order Number: [id number] Exam Date: 10/23/2023 13:05 Report Date: 10/23/2023 [...] Signed By: 10/23/23 1506 DD/ 1503 TD/TT: Regeneration Operator:TBHRadiology, Radiologist, - 10/23/2023 [place] [address] Ultrasound Report Signed Patient: LOYD BLANDON MR#: [id number] : 1955 Acct:[id number] Age/Sex: 68 / M ADM Date: 10/23/23 Loc: US Attending Dr: Non-Staff Physician Eriberto Ordering Physician: Yolanda DuarteStaff Eriberto Date of Service: 10/23/23 Procedure(s): US paracentesis abd w/image Accession Number(s): [id number] cc: SANJAY ROBLEDO ; Yolanda DuarteStaff Eriberto The [place] [id number] Patient Name: LOYD BLANDON MRN: TBH:[id number] date: 1955 Sex: M Assigned Patient Location: US Current Patient Location: US Accession/Order Number: [id number] Exam Date: 10/23/2023 13:05 Report Date: 10/23/2023 [...] Signed By: 10/23/23 1506 DD/ 1503 TD/TT: Regeneration Operator: EDDIE MixRadiology Study observation (narrative)EDDIE MixUS PARACENTESIS ABD W/IMAGEOrdered By: Radiologist Radiology on 25-78-9819XAPN [employer] Work Phone: Orders Onlyon 74-32-1290Wzergk [id number] Loyd Blandon 1955 M Date Provider Department Center 10/20/2023 Olinda-RUFINO MATHUR [facility] No family history on fileNormalUniversity of Medical Center Hospital36on 50-92-902512J called the patient's to discuss the results [...] we can follow-up on his sodium level.Normal [facility]36Patients called stating they were called yesterday afternoon [...] call back from you to clarify some things.NormalKindred Hospital DaytonOrders Onlyon 07-68-8778Dznojo [id number] JamiaOlyd 1955 M Date Provider Department Center 10/18/2023 EKATERINA ALMARAZ [facility] No family history on fileNormalUniversProMedica Bay Park HospitalTelephoneon [id number] Loyd Blandon 1955 M Date Provider Department Center 10/18/202380983-EJYZLRENARD TAYLOR [facility] No family history on fileNormalUniversity J.W. Ruby Memorial HospitalOrders Onlyon 39-51-6026Mxjfzm [id number] JamiaLoyd 1955 M Date Provider Department Center 10/17/202328201-LGIUHRENARD ESPOSITO [facility] No family history on fileNormalUniversProMedica Bay Park HospitalDocumentation on [id number] Loyd Blandon 1955 M Date Provider Department Center 10/16/2023 JOSH NICOLE [facility] Pavi No family history on file Reason for Visit and Comments: Specialty Pharmacy Note: Xifaxan PAP [Other]NormalUnHighland District HospitalPrep for Procedureon 14-85-7320Cmyj for [id number] Loyd Blandon 1955 M Date Provider Department Center 10/16/2023 298-IRENA JOHNSON [facility] No family history on fileNormalUniversProMedica Bay Park HospitalBASIC METABOLIC PANELon 05-21-1148Tzxru gap [Moles/Vol]14 mmol/LNormal7-20UnHighland District HospitalComment on above:Performed By: #### [id number] #### [facility] ([facility]) [address] [place], [place] [address]Zkedjpl [Mass/Vol]9.1 mg/dLNormal8.6-10.3UnHighland District HospitalComment on above:Performed By: #### [id number] #### [facility] ([facility]) [address] [place], [place] [address]Ofwtxdvc [Moles/Vol]96 mmol/ZJzj01-898KbjuabvsgpHighland District HospitalComment on above:Performed By: #### [id number] #### [facility] ([facility]) [address] [place], [place] [address]KD7 [Moles/Vol]22 mmol/TAnrxxo43-53XhkdgfveyfHighland District HospitalComment on above:Performed By: #### [id number] #### [facility] ([facility]) [address] [place], [place] [address]Eyqfummhoa [Mass/Vol]1.00 mg/dLNormal0.70-1.30UnHighland District HospitalComment on above:Performed By: #### [id number] #### [facility] ([facility]) [address] [place] [address]QZYXONRGNY FILTRATION RATE ML/MIN/1.73 SQ M.AWCJZSIHM26.0 mL/min/1.73m*2Normal>60.0UnHighland District HospitalComment on above: Result Comment: The [facility]???s estimated glomerular filtration rate (eGFR) will no [...] affect anyone group of individuals.Performed By: #### [id number] #### [facility] ([facility]) [address] [place] [address]Uhhdhcp [Mass/Vol]108 mg/sBYwcl94-731KkokectfkyHighland District HospitalComment on above:Performed By: #### [id number] #### [facility] ([facility]) [address] QUIJANOJ[place], [place] [address]Andftjsoj [Moles/Vol]4.8 mmol/LNormal3.5-5.1UnHighland District HospitalComment on above:Performed By: #### [id number] #### [facility] ([facility]) [address] [place] [address]Qqimrt [Moles/Vol]127 mmol/CUxz475-408CzchvetgpeHighland District HospitalComment on above:Performed By: #### [id number] #### [facility] ([facility]) [address] [place], [place] [address]Amyp nitrogen [Mass/Vol]13 mg/dLNormal7-25UnHighland District HospitalComment on above:Performed By: #### [id number] #### [facility] ([facility]) [address] [facility]ITALLeón QUIJANOJENNINGSCOLLEGE [place], [place] [address]PDRQ NITROGEN/CREATININE (MASS RATIO) IN SER/PLAS13.0Normal [facility]red Hospital DaytonComment on above:Performed By: #### [id number] #### [facility] ([facility]) [address] [place] [address]CNOpv 21-73-4494Kactjwipwku distribution width (RBC) [Ratio]14.2 %Cdwfdm83.5-15.0UnHighland District HospitalComment on above:Performed By: #### [id number] #### [facility] ([facility]) [address] [place] [address]GCKELSGKNSF MEAN CORPUSCULAR HEMOGLOBIN CONCENTRATION (G/DL) BY OSUOXHIST37.5 g/eGNiczzo04.0-35.0UnHighland District HospitalComment on above:Performed By: #### [id number] #### [facility] ([facility]) [address] [place] [address]Junelccsrt (Bld) [Volume fraction]38.0 %Low39.0-55.0UnHighland District HospitalComment on above:Performed By: #### [id number] #### [facility] ([facility]) [address] [place] [address]Yjlphmoupn (Bld) [Mass/Vol]13.1 g/aFBlnvit08.0-17.0UnHighland District HospitalComment on above:Performed By: #### [id number] #### [facility] ([facility]) [address] [place] [address]GCE (RBC) [Entitic mass]34.4 qcJbci26.0-33.0UnHighland District HospitalComment on above:Performed By: #### [id number] #### [facility] ([facility]) [address] [place] [address]WTX (RBC) [Entitic vol]99.7 tAFnxo44.0-98.0UnHighland District HospitalComment on above:Performed By: #### [id number] #### [facility] ([facility]) [address] [place] [address]YVUXCPGYR (10*3/UL) IN BLOOD AUTOMATED BSXHP486 10*3/uLNormal 150-400UnHighland District HospitalComment on above:Performed By: #### [id number] #### [facility] ([facility]) [address] [place] [address]CDG (Bld) [#/Vol]3.81 10*6/uLLow4.20-5.70UnHighland District HospitalComment on above:Performed By: #### [id number] #### [facility] ([facility]) [address] [place] [address]NTF (Bld) [#/Vol]6.20 10*3/uLNormal4.00-10.60UnHighland District HospitalComment on above:Performed By: #### [id number] #### [facility] ([facility]) [address] [place] [address]YZLPCBL FUNCTION PANELon 22-47-0906Ubvqpth [Mass/Vol]3.4 g/dLLow 3.5-5.7UnHighland District HospitalComment on above:Performed By: #### [id number] #### [facility] ([facility]) [address] [place] [address]PRO [Catalytic activity/Vol]114 U/MFate41-674LqssbhkgkxHighland District HospitalComment on above:Performed By: #### [id number] #### [facility] ([facility]) [address] [place] [address]MIF [Catalytic activity/Vol]23 U/LNormal7-52UnHighland District HospitalComment on above:Performed By: #### [id number] #### [facility] ([facility]) [address] [place], [place] [address]WKR [Catalytic activity/Vol]48 U/UXhzt35-91OepmkenxrhHighland District HospitalComment on above:Performed By: #### [id number] #### [facility] ([facility]) [address] [place] [address]Qugsczfxu [Mass/Vol]1.5 mg/dLHigh0.3-1.0UnHighland District HospitalComment on above:Performed By: #### [id number] #### [facility] ([place]) [address] [place] [address]Luwdfjoou [Mass/Vol]0.5 mg/dLHigh0-0.2UnHighland District HospitalComment on above:Performed By: #### [id number] #### [facility] ([facility]) [address] [place] [address]Ahmyekr [Mass/Vol]7.8 g/dLNormal6.0-8.3UnHighland District HospitalComment on above:Performed By: #### [id number] #### [facility] ([place]) [address] [place] [address]Aklta [id number] Loyd Blandon 1955 M Date Provider Department Center 10/13/2023 2244-[facility] MP LAB RESOURCE MP DRAW Medical Pavi No family history on fileNormalUniversity J.W. Ruby Memorial HospitalOffice Visiton 42-38-5059Njriqg-up [id number] Loyd Blandon 1955 M Date Provider Department Center 10/13/2023 298-IRENA JOHNSON [facility] No family history on file Level of Service:[address]73 [place] OFFICE/OUTPATIENT ESTABLISHED HIGH MDM 40 MIN () Reason for Visit and Comments: Cirrhosis [239] Ascites [295]NormalUnHighland District HospitalPROTIME-INRon 10-13-2023 INR IN PPP BY COAGULATION ASSAY1.69Lztz5.90-1.10UnHighland District HospitalComment on above:Result Comment: ACCCP RECOMMENDED INR [...] OPTIMAL THERAPEUTIC RANGE. CHEST 1995;108:231S-246S.Performed By: #### [id number] #### [facility] ([employer]) [address] [place], [place] [address]UEZZKYCBLUG TIME (PT) IN PPP BY COAGULATION ASSAY14.9 Seconds High12.3-14.8UnHighland District HospitalComment on above:Performed By: #### [id number] #### [facility] (AKER) [address] [place], [place] [address]Vcwlee Onlyon 19-88-1423Wzhwzo [id number] Loyd Blandon 1955 M Date Provider Department [place] 10/06/2023 N0026-JBVBVQZT, HISTORICAL MP GI Medical Pavi No family history on fileNormalUniversity of Medical Center HospitalALL MISCELLANEOUS TESTon 95-39-7523BJQHRMOYFDMZL TESTCOMMENT.NOMS HealthcareComment on above:Test Ordered: 031993 Albumin, Body Fluid Albumin, Body Fluid 0.4 g/dL Reference Range: Not Estab. The reference interval(s) and other method performance specifications have not been established for this body fluid. The test result must be integrated into the clinical context for interpretation. Performed at: - Lab[address] [id number] Machinery Mechanic: John Tang PhD, Phone: [phone] Albumin, Body Fluid CLINISYNCNo Panel Informationon 96-00-5837QTKU HealthcarePROTEIN, BODY FLUIDon 64-54-3101UUZWXZU, BODY FLUID1.1 g/dL.NOMS HealthcareComment on above: : [...] 2008. Ninth Edition (V9.1) [employer], [facility]; [place]: October 2008. Performed at: [facility] Labco[address] [id number] Machinery Mechanic: John Tang PhD, Phone: [phone] CLINISYNCCELL CT, SEROUS FLUIDon 30-31-4764VLHLFQZ, SEROUSSlightly hazyClearNOMS HealthcareCOLOR, SEROUSStraw.NOMS HealthcareComment on above:Colorless to Pale Yellow/Straw COMMENTS:TNP.NOMS HealthcareEosinophils/100 WBC (Bld)0 %Not Estab.NOMS HealthcareLINING CELLS, SEROUS7 %Not Estab.NOMS HealthcareComment on above: Performed at: - Labco[address] [id number] Machinery Mechanic: John Tang PhD, Phone: [phone] Lymphocytes/100 WBC (Bld)9 %Not Estab.NOMS HealthcareMACROPHAGES, GYEOZZ08 %Not Estab.NOMS HealthcareNeutrophils/100 WBC (Bld)13 %0 - 24 %[facility] NUCLEATED CELLS, IREEZL848 /mm30 - 499 /ik5UPHS HealthcareComment on above: Pleural Fluid, with <1000 Nucleated cells/uL has been associated with transudates while >1000 uL may be seen in exudates. RBC (Bld) [#/Vol]0 10*6/uLNot Estab.NOMS HealthcareCLINISYNCNOMS HealthcareIGG, SUBCLASSES(1-4)on 81-23-0753OGT, SUBCLASS 1855 mg/eJWqfylqus011 - 810 mg/dLNOMS HealthcareIGG, SUBCLASS 2365 mg/dL130 - 555 mg/dLNOMS HealthcareIGG, SUBCLASS 3 68 mg/dL15 - 102 mg/dLNOMS HealthcareIGG, SUBCLASS 452 mg/dL2 - 96 mg/dLNOMS HealthcareComment on above:Performed at: [facility] LabRobert [place] [id number] Machinery Mechanic: John Tang PhD, Phone: [phone] IMMUNOGLOBULIN G, QN, CEWAM8833 mg/dL603 - 1613 mg/dLNOMS Healthcare Interpretation and review of laboratory resultsAbnormalGeneral Leonard Wood Army Community HospitalCLINISYN NOMS HealthcareUS PARACENTESIS ABD W/IMAGEon 31-93-1218[address] [address] Ultrasound Report Signed Patient: LOYD BLANDON MR#: [id number] : 1955 Acct:[id number] Age/Sex: 68 / M ADM Date: 10/03/23 Loc: US Attending Dr: Jason Miles M.D. Ordering Physician: Jason Miles M.D. Date of Service: 10/03/23 Procedure(s): US paracentesis abd w/image Accession Number(s): [id number] cc: SANJAY ROBLEDO ; Jason Miles M.D. [address] [address] Patient Name: LOYD BLANDON MRN: [id number] date: 1955 Sex: M Assigned Patient Location: US Current Patient Location: US Accession/Order Number: [id number] Exam Date: 10/03/2023 10:50 Report Date: 10/03/2023 [...] Signed By: 10/03/23 1314 DD/ 1311 TD/TT: Regeneration Operator:TBHRadiology, Radiologist, - 10/03/2023 [place] [address] Ultrasound Report Signed Patient: LOYD BLANDON MR#: [id number] : 1955 Acct:[id number] Age/Sex: 68 / M ADM Date: 10/03/23 Loc: US Attending Dr: Jason Miles M.D. Ordering Physician: Jason Miles M.D. Date of Service: 10/03/23 Procedure(s): US paracentesis abd w/image Accession Number(s): [id number] cc: SANJAY ROBLEDO ; Jason Miles M.D. The [address] [address] Patient Name: LOYD BLANDON MRN: [facility]:[id number] date: 1955 Sex: M Assigned Patient Location: US Current Patient Location: US Accession/Order Number: [id number] Exam Date: 10/03/2023 10:50 Report Date: 10/03/2023 [...] Signed By: 10/03/23 1314 DD/ 1311 TD/TT: Regeneration Operator: EDDIE HealthcareRadiology Study observation (narrative)EDDIE MixUS PARACENTESIS ABD W/IMAGEOrdered By: Radiologist Radiology on 32-67-4547NRTH Healthcare Work Phone: Orders Onlyon 59-06-0935Gbbccg [id number] Loyd Blandon 1955 M Date Provider Department Center 09/27/2023 204-HARSHA CONNER [facility] GI [facility] No family history on fileNormalUniversity J.W. Ruby Memorial HospitalCREATININE, SERUMon 12-06-9995Slxmabezky [Mass/Vol]1.06 mg/dLNormal0.70-1.30UnHighland District HospitalComment on above:Performed By: #### [id number] #### [facility] (BEAKER) [address] [place], [place] [address]ELKMRCNICW FILTRATION RATE ML/MIN/1.73 SQ M.VPZTKNBRZ06.5 mL/min/1.73m*2Normal>60.0UnHighland District HospitalComment on above: Result Comment: The [facility]???s estimated glomerular filtration rate (eGFR) will no [...] affect anyone group of individuals.Performed By: #### [id number] #### [facility] ([place]) [address] [place], [place] [address]FIR ABDOMEN PELVIS W IV CONTRASTon 84-79-8875ZKG ABDOMEN PELVIS W IV CONTRASTCLINICAL INFORMATION: Abdominal [...] signed: Camila Gan MD. Not Eran Interpretation CodeUnHighland District HospitalLabon [id number] JamiaLoyd rivera 1955 M Date Provider Department Center 09/25/2023 2245-[facility] OPD LAB RESOURCE [facility] OPD [place] [facility] C No family history on fileNormalUniversity of Medical Center HospitalOrders Onlyon 48-33-2438Qtherg [id number] JamiaLoyd rivera 1955 M Date Provider Department Center 09/23/2023 204-HARSHA CONNER [facility] GI [facility] No family history on fileNormalUniversity of Medical Center HospitalOrders Only85-50-2615Tbpvss [id number] Jamia,Loyd 1955 M Date Provider Department Center 09/15/2023 BROOKLYNN ZEPEDA MP GI Medical Pavi No family history on fileNormalUniversity of Medical Center HospitalOrders Onlyon 04-79-9867Tqgxtf [id number] Loyd Blandon 1955 M Date Provider Department Center 09/14/2023 BROOKLYNN ZEPEDA MP GI Medical Pavi No family history on fileNormalUniversity of Medical Center HospitalMR HEAD/BRAIN WO CONon 97-27-3593[place]zBurr, [place] [address] Magnetic Resonance Report Signed Patient: LOYD BLANDON MR#: [id number] : 1955 Acct:[id number] Age/Sex: 68 / M ADM Date: 09/12/23 Loc: MRI Attending Dr: Ward Esparza M.D. Ordering Physician: WARD ESPARZA Date of Service: 09/12/23 Procedure(s): MR head/brain wo con Accession Number(s): [id number] cc: WARD ESPARZA ; SANJAY ROBLEDO [place] [id number] Patient Name: LOYD BLANDON MRN: [facility]:[id number] date: 1955 Sex: M Assigned Patient Location: MRI Current Patient Location: MRI Accession/Order Number: [id number] Exam Date: 09/12/2023 08:17 Report Date: 09/12/2023 [...] Signed By: 09/12/23 1117 DD/ 1115 TD/TT: Regeneration Operator:MONTYadiologteresa, Radiologist, - 09/12/2023 [place] [address] Magnetic Resonance Report Signed Patient: LOYD BLANDON MR#: [id number] : 1955 Acct:[id number] Age/Sex: 68 / M ADM Date: 09/12/23 Loc: MRI Attending Dr: Ward Esparza M.D. Ordering Physician: WARD ESPARZA Date of Service: 09/12/23 Procedure(s): MR head/brain wo con Accession Number(s): [id number] cc: WARD ESPARZA ; SANJAY ROBLEDO The [place] [address] Patient Name: LOYD BLANDON MRN: [id number] date: 1955 Sex: M Assigned Patient Location: MRI Current Patient Location: MRI Accession/Order Number: [id number] Exam Date: 09/12/2023 08:17 Report Date: 09/12/2023 [...] Signed By: 09/12/23 1117 DD/ 1115 TD/TT: Regeneration Operator: EDDIE HealthcareRadiology Study observation (narrative)[facility] HEAD/BRAIN WO CONOrdered By: Radiologist Radiology on 69-93-5504JKHM Healthcare Work Phone: Orders Onlyon 35-38-1344Jakhoz [id number] Loyd Blandon 1955 M Date Provider Department Center 08/28/2023 P0271-NQYCXNEZ, HISTORICAL MP GI Medical Pavi No family history on fileNormalUniversity of Medical Center HospitalBasophils Auto (Bld) [#/Vol]Ordered By: Brayan Alves on 08-38-3854Pdjnpimtw (Bld) [#/Vol] 0.0 10*3/uL0.0-0.2FSelect Medical TriHealth Rehabilitation HospitalBasophils/100 WBC Auto (Bld) Ordered By: Brayan Alves on 18-46-9650Ccsqpuwyb/100 WBC (Bld)0.7 %. [facility] HealthCalcium [Mass/volume] in Serum or PlasmaOrdered By: Brayan Alves on 65-59-2119Fjvxmas [Mass/Vol]8.6 mg/dL8.6-10.3FSelect Medical TriHealth Rehabilitation HospitalCarbon dioxide, total [Moles/volume] in Serum or Plasma Ordered By: Brayan Alves on 92-42-1677JG8 [Moles/Vol]27.3 mmol/L21.0-31.0 [facility] HealthChloride [Moles/volume] in Serum or Plasma Ordered By: Baryan Alves on 17-92-0817Lpksacfo [Moles/Vol]96 mmol/L98-107 [facility] HealthCreatinine [Mass/volume] in Serum or Plasma Ordered By: Brayan Alves on 37-56-8062Gouxhokjzb [Mass/Vol]1.07 mg/dL 0.70-1.30Mer[facility] HealthEosinophils Auto (Bld) [#/Vol]Ordered By: Brayan Alves on 69-82-2957Amndxtqbpzi (Bld) [#/Vol]0.1 10*3/uL0.0-0.45 [facility] HealthEosinophils/100 WBC Auto (Bld)Ordered By: Brayan Alves on 47-81-9605Fafluevfsgt/100 WBC (Bld)1.9 %.[facility]cy HealthErythrocyte distribution width Auto (RBC) [Ratio]Ordered By: Brayan Alves on 93-67-9668Ptqeghqbqzr distribution width (RBC) [Ratio]13.8 %12.0-14.8Mer[facility] HealthGlucose [Mass/volume] in Serum or PlasmaOrdered By: Brayan Alves on 55-62-0506Qbhxqzv [Mass/Vol]132 mg/dL 70-100Mercy HealthComment on above:ADA recommended reference rangeRandom Glucose Reference Range is dependent on time and content of last meal. Glucose of more than 200 mg/dL in a nonstressed, ambulatory subject supports the diagnosisof Diabetes Mellitus.Hematocrit Auto (Bld) [Volume fraction]Ordered By: Brayan Alves on 13-59-5751Gabbgjhphr (Bld) [Volume fraction]35.5 %38.8-50.0Mercy HealthHemoglobin [Mass/volume] in BloodOrdered By: Brayan Alves on 58-39-6531Jvcodntpdy (Bld) [Mass/Vol]12.5 g/dL13.0-17.0Mercy HealthLeukocytes [#/volume] corrected for nucleated erythrocytes in Blood by Automated coun Ordered By: Brayan Alves on 05-73-7560RFF corrected for nucl RBC Auto (Bld) [#/Vol]5.7 10*3/uL4.1-10.5FSelect Medical TriHealth Rehabilitation HospitalLymphocytes Auto (Bld) [#/Vol]Ordered By: Brayan Alves on 71-72-6518Jtrapuffwbb (Bld) [#/Vol]0.7 10*3/uL1.00-4.8Mercy HealthLymphocytes/100 WBC Auto (Bld)Ordered By: Brayan Alves on 15-94-0972Mtkmpignrqb/100 WBC (Bld) 13.2 %.[facility] Auto (RBC) [Entitic mass]Ordered By: Brayan Alves on 13-59-2505UVW (RBC) [Entitic mass]36.2 pg27.5-35.2FSelect Medical TriHealth Rehabilitation HospitalMCHC Auto (RBC) [Mass/Vol]Ordered By: Brayan Alves on 39-98-5109UCZM (RBC) [Mass/Vol]35.2 g/dL32.5-35.6FSelect Medical TriHealth Rehabilitation HospitalMCV Auto (RBC) [Entitic vol]Ordered By: Brayan Alves on 55-18-9918WLA (RBC) [Entitic vol]102.9 fL83.5-101Mercy HealthMonocytes Auto (Bld) [#/Vol]Ordered By: Brayan Alves on 58-33-7594Bclmhdafq (Bld) [#/Vol]0.9 10*3/uL0.0-0.8Mercy HealthMonocytes/100 WBC Auto (Bld)Ordered By: Brayan Alves on 00-29-9831Vhxfkqkvp/100 WBC (Bld)15.7 %. [facility] HealthNeutrophils Auto (Bld) [#/Vol]Ordered By: Brayan Alves on 73-24-3940Bgrbahgfgiu (Bld) [#/Vol]3.9 10*3/uL1.8-7.7 [facility] HealthNeutrophils/100 WBC Auto (Bld)Ordered By: Brayan Alves on 24-00-3421Cvgoacqkzkj/100 WBC (Bld)68.5 %.[facility] HealthNo Panel InformationOrdered By: Brayan Alves on 10-77-2823Kseleomav GFR (CKD-EPI)> 60.0 mL/MinMercy Health Pharmacy Creatinine Clearance (ChemN/AFSelect Medical TriHealth Rehabilitation HospitalNucleated erythrocytes [Presence] in Blood by Automated countOrdered By: Brayan Alves on 74-61-7330Bteramqkz RBC Auto Ql (Bld)0.1 /100{WBC}0-0.5FSelect Medical TriHealth Rehabilitation HospitalPlatelet mean volume Auto (Bld) [Entitic vol]Ordered By: Brayan Alves on 33-25-9720Abyddyui mean volume (Bld) [Entitic vol]8.1 fL 6.6-10.1FSelect Medical TriHealth Rehabilitation HospitalPlatelets Auto (Bld) [#/Vol]Ordered By: Brayan Alves on 69-25-9303Slsbvpxss (Bld) [#/Vol]153 10*3/cP084-377 [facility] HealthPotassium [Moles/volume] in Serum or Plasma Ordered By: Brayan Alves on 02-48-1901Csulsleho [Moles/Vol]4.8 mmol/L 3.5-5.1FSelect Medical TriHealth Rehabilitation HospitalRBC Auto (Bld) [#/Vol]Ordered By: Brayan Alves on 97-97-0480FPN (Bld) [#/Vol]3.45 10*6/uL3.90-5.60[facility] Hospitalerum or plasma anion gap determinationOrdered By: Brayan Alves on 88-49-9072Vycqs gap [Moles/Vol]13.5 mmol/L6.0-15.0[facility] Hospitalodium [Moles/volume] in Serum or PlasmaOrdered By: Brayan Alves on 33-11-9405Gcdhjr [Moles/Vol]132 mmol/B315-316JtlzvambfMercy HealthUrea nitrogen [Mass/volume] in Serum or PlasmaOrdered By: Brayan Alves on 14-00-7582Rdpe nitrogen [Mass/Vol]12 mg/dL7-25Mer[facility] HealthWBC Auto (Bld) [#/Vol]Ordered By: Brayan Alves on 00-48-6435WND (Bld) [#/Vol]5.7 10*3/uL4.1-10.5FSelect Medical TriHealth Rehabilitation Hospital Albumin [Mass/volume] in Serum or Plasma by Bromocresol green (BCG) dye binding methoOrdered By: Rick Ortega on 26-90-9838Waluxzf BCG dye [Mass/Vol]3.0 g/dL 3.5-5.7FSelect Medical TriHealth Rehabilitation HospitalBilirubin.total [Mass/volume] in Serum or PlasmaOrdered By: Rick Ortega on 21-49-6914Pmhwetrrp [Mass/Vol]1.3 mg/dL 0.3-1.0Mercy HealthComment on above:Samples from patients who have taken Naproxen have shown spurious elevation in Total Bilirubin levels. A metabolite of Naproxen, O-desmethylnaproxen, has been shown to interfere with the Baljit-Barrington method for measuring Total Bilirubin.Calcium [Mass/volume] in Serum or PlasmaOrdered By: Rick Ortega on 29-48-2084Xefwijr [Mass/Vol]8.3 mg/dL8.6-10.3FSelect Medical TriHealth Rehabilitation HospitalCarbon dioxide, total [Moles/volume] in Serum or PlasmaOrdered By: Rick Ortega on 78-53-7737ZZ8 [Moles/Vol]27.3 mmol/L21.0-31.0[facility] HealthComprehensive Metabolic Panelon 45-22-9370Fmlexqn [Mass/Vol]3.661266 g/dLLow3.5-5.7 g/dLNortWarren General Hospital [employer] Other bilirubin [Mass/Vol]1.5411375 mg/dLHigh0.3-1.0 mg/dL [facility] [employer] Other Calcium [Mass/Vol]8.6942958 mg/dLLow8.6-10.3 mg/dL [facility] [employer] Other CO2 [Moles/Vol]27.18307669 mmol/LHboiqt11.0-31.0 mmol/LNSophia Genetics Other Creatinine [Mass/Vol]0.12554918 mg/dLNormal0.70-1.30 mg/dLNoSkip Hop Qriously Other GFR/1.73 sq M.predicted MDRD (S/P/Bld) [Vol rate/Area] mL/min/{1.73_m2}[facility] [employer] Other Potassium [Moles/Vol]5.88747858 mmol/LNormal3.5-5.1 mmol/LNfreeman health system Qriously Other Protein [Mass/Vol]6.794697 g/dLLow6.4-8.9 g/dLNoSkip Hop Qriously Other Comprehensive Metabolic Panel3.3 g/dL5 [facility] Other Comprehensive Metabolic PanelOrdered By: Rick Ortega on 48-04-8571Dbgywcq/Globulin [Mass ratio]0.9 {ratio}[facility] HealthALP [Catalytic activity/Vol]158 U/U57-393LipsblegtMercy HealthALT [Catalytic activity/Vol]35 U/L7-52Mer[facility] HealthAST [Catalytic activity/Vol]76 U/V11-67QkmzvfmibMercy HealthChloride [Moles/Vol]95 mmol/D54-409FmchdtpksMercy Health Glucose [Mass/Vol]94 mg/bH29-478EzzzdsxhoMercy HealthComment on above:ADA recommended reference rangeRandom Glucose Reference Range is dependent on time and content of last meal. Glucose of more than 200 mg/dL in a nonstressed, ambulatory subject supports the diagnosisof Diabetes Mellitus. Sodium [Moles/Vol]127 mmol/C694-763Addbnkamy Regional Medical CenterUrea nitrogen [Mass/Vol]9 mg/dL7-25Mer[facility] HealthCreatinine [Mass/volume] in Serum or PlasmaOrdered By: Rick Ortega on 04-12-2023 Creatinine [Mass/Vol]0.81 mg/dL0.70-1.30[facility] Globulin Calc (S) [Mass/Vol]Ordered By: Rick Ortega on 75-36-7815Cwnruowz (S) [Mass/Vol]3.3 g/dLMercy HealthNo Panel InformationOrdered By: Rick Ortega on 87-39-7607Wejxqnohq GFR (CKD-EPI)> 60.0 mL/MinMercy HealthPharmacy Creatinine Clearance (ChemN/[facility] HospitalPotassium [Moles/volume] in Serum or PlasmaOrdered By: Rick Ortega on 82-69-8123Aawweatom [Moles/Vol]5.1 mmol/L3.5-5.1FSelect Medical TriHealth Rehabilitation HospitalProtein [Mass/volume] in Serum or PlasmaOrdered By: Rick Ortega on 10-80-1215Spfldhr [Mass/Vol]6.3 g/dL6.4-8.9[facility] Serum or plasma anion gap determinationOrdered By: Rick Ortega on 04-12-2023 Anion gap [Moles/Vol]9.8 mmol/L6.0-15.0Mer[facility] HealthActin smooth muscle IgG Ab [Units/volume] in SerumOrdered By: Lex Carroll on 44-65-6914Jbpth smooth muscle IgG Qn (S)8 Units0-19Mercy HealthComment on above:Negative 0 - 19 Weak positive 20 - 30 Moderate to strong positive >30 Actin Antibodies are foundin 52-85% of patients with autoimmune hepatitis or chronic active hepatitis and in 22% of patients with primary biliary cirrhosis.Alanine aminotransferase [Enzymatic activity/volume] in Serum or PlasmaOrdered By: Lex Carroll on 86-57-5296BGQ [Catalytic activity/Vol]30 U/L7-52Mer[facility] HealthAlbumin [Mass/volume] in Serum or Plasma by Bromocresol green (BCG) dye binding methoOrdered By: Lex Carroll on 38-63-7118Pgfsswm BCG dye [Mass/Vol]3.6 g/dL3.5-5.7FSelect Medical TriHealth Rehabilitation HospitalAlkaline phosphatase [Enzymatic activity/volume] in Serum or PlasmaOrdered By: Lex Carroll on 01-30-3715LAJ [Catalytic activity/Vol]96 U/Y63-879XepsjpdmcMercy HealthAspartate aminotransferase [Enzymatic activity/volume] in Serum or PlasmaOrdered By: Lex Carroll on 46-25-9620KBL [Catalytic activity/Vol]55 U/P32-97ZgrtnadbcMercy HealthBasophils Auto (Bld) [#/Vol]Ordered By: Lex Carroll on 40-10-3452Uygbqesei (Bld) [#/Vol]0.0 10*3/uL 0.0-0.2FSelect Medical TriHealth Rehabilitation HospitalBasophils/100 WBC Auto (Bld)Ordered By: Lex Carroll on 29-33-4413Vnokwieql/100 WBC (Bld)0.9 %.[facility] HealthBilirubin.total [Mass/volume] in Serum or PlasmaOrdered By: Lex Carroll on 80-89-6006Huoicwoop [Mass/Vol]0.9 mg/dL0.3-1.0[facility] HealthCalcium [Mass/volume] in Serum or PlasmaOrdered By: Lex Carroll on 21-01-3120Pnstrai [Mass/Vol]8.7 mg/dL8.6-10.3FSelect Medical TriHealth Rehabilitation HospitalCarbon dioxide, total [Moles/volume] in Serum or PlasmaOrdered By: Lex Carroll on 86-17-8067ZJ5 [Moles/Vol]26.9 mmol/L21.0-31.0[facility] HealthChloride [Moles/volume] in Serum or PlasmaOrdered By: Lex Carroll on 83-46-8462Crpdnlid [Moles/Vol]108 mmol/C13-567RbmysbjfcMercy HealthCholesterol [Mass/volume] in Serum or PlasmaOrdered By: Lex Carroll on 06-68-4368Tfbmiqxotqg [Mass/Vol]175 mg/sQ370-693YpcycbsiyMercy HealthComment on above:Chol less than 200 mg/dl low riskChol 201-239 mg/dl borderline riskChol 240 mg/dl and greater high riskCholesterol in LDL Calc [Mass/Vol]Ordered By: Lex Carroll on 52-55-1889Avdmwhcdznn in LDL [Mass/Vol]94 mg/dL0-100Mercy HealthComment on above:LDL ATP III CLASSIFICATIONLDL less than 100 mg/dL OptimalLDL 100-129 mg/dL Near or above btzczbeKGI855-808 mg/dL Borderline highLDL 160-189 mg/dL HighLDL greater than 189 mg/dL Very highCholesterol in VLDL Calc [Mass/Vol]Ordered By: Lex Carroll on 80-21-7205Epphrrmdjjp in VLDL [Mass/Vol]21 mg/dLMercy HealthCreatinine [Mass/volume] in Serum or PlasmaOrdered By: Lex Carroll on 88-22-9241Xidawcsprp [Mass/Vol]0.90 mg/dL0.70-1.30Mer[facility] HealthEosinophils Auto (Bld) [#/Vol]Ordered By: Lex Carroll on 91-55-5879Wcvysjvtoli (Bld) [#/Vol]0.2 10*3/uL0.0-0.45Mer[facility] HealthEosinophils/100 WBC Auto (Bld)Ordered By: Lex Carroll on 09-21-2022 Eosinophils/100 WBC (Bld)3.6 %.[facility] HealthErythrocyte distribution width Auto (RBC) [Ratio]Ordered By: Lex Carroll on 09-21-2022 Erythrocyte distribution width (RBC) [Ratio]14.2 %12.0-14.8Mer[facility] HealthGlobulin Calc (S) [Mass/Vol]Ordered By: Lex Carroll on 40-08-3511Sfdxjwrg (S) [Mass/Vol]2.8 g/dLMercy Health Glucose [Mass/volume] in Serum or PlasmaOrdered By: Lex Carroll on 09-21-2022 Glucose [Mass/Vol]123 mg/yA65-860JbrkkkqstMercy HealthComment on above:ADA recommended reference rangeRandom Glucose Reference Range is dependent on time and content of last meal. Glucose of more than 200 mg/dL in a nonstressed, ambulatory subject supports the diagnosisof Diabetes Mellitus. Hematocrit Auto (Bld) [Volume fraction]Ordered By: Lex Carroll on 09-21-2022 Hematocrit (Bld) [Volume fraction]37.5 %38.8-50.0Mer[facility] HealthHemoglobin [Mass/volume] in BloodOrdered By: Lex Carroll on 09-21-2022 Hemoglobin (Bld) [Mass/Vol]12.9 g/dL13.0-17.0[facility] Hepatitis B virus surface Ag [Presence] in Serum or Plasma by ImmunoassayOrdered By: Lex Carroll on 46-12-3152XOM surface Ag IA QlNegativeNegativeMercy HealthHepatitis C virus IgG Ab [Presence] in Serum or Plasma by ImmunoassayOrdered By: Lex Carroll on 76-92-0652NST IgG IA QlNon-ReactiveNon ReactiveMercy HealthLaboratory - CoagulationOrdered By: Lex Carroll on 45-33-5802SR Coag (PPP) [Time]13.0 s9.0-12.9Mercy HealthLeukocytes [#/volume] corrected for nucleated erythrocytes in Blood by Automated counOrdered By: Lex Carroll on 70-22-5675EQZ corrected for nucl RBC Auto (Bld) [#/Vol]4.2 10*3/uL4.1-10.5FSelect Medical TriHealth Rehabilitation Hospital Lymphocytes Auto (Bld) [#/Vol]Ordered By: Lex Carroll on 93-27-5758Aauzwyoowkb (Bld) [#/Vol]1.1 10*3/uL1.00-4.8[facility] Lymphocytes/100 WBC Auto (Bld)Ordered By: Lex Carroll on 09-21-2022 Lymphocytes/100 WBC (Bld)27.1 %.Mercy HealthMCH Auto (RBC) [Entitic mass]Ordered By: Lex Carroll on 10-25-2637PGM (RBC) [Entitic mass] 35.0 pg27.5-35.2FSelect Medical TriHealth Rehabilitation HospitalMCHC Auto (RBC) [Mass/Vol] Ordered By: Lex Carroll on 71-63-7072LREE (RBC) [Mass/Vol]34.4 g/dL32.5-35.6 [facility] HealthMCV Auto (RBC) [Entitic vol]Ordered By: Lex Carroll on 52-83-6440WNX (RBC) [Entitic vol]101.9 fL83.5-101Mercy HealthMonocytes Auto (Bld) [#/Vol]Ordered By: Lex Carroll on 68-75-7266Cvsaxxrwz (Bld) [#/Vol]0.5 10*3/uL0.0-0.8Mer[facility] HealthMonocytes/100 WBC Auto (Bld)Ordered By: Lex Carroll on 09-21-2022 Monocytes/100 WBC (Bld)11.3 %.[facility] HealthNeutrophils Auto (Bld) [#/Vol]Ordered By: Lex Carroll on 66-26-3456Dtscoqmjeyp (Bld) [#/Vol]2.4 10*3/uL1.8-7.7FSelect Medical TriHealth Rehabilitation HospitalNeutrophils/100 WBC Auto (Bld) Ordered By: Lex Carroll on 29-32-4406Oxfiuphyukw/100 WBC (Bld)57.1 %.[facility] HealthNo Panel InformationOrdered By: Lex Carroll on 56-67-1692Lamzcafgt GFR (CKD-EPI)> 60.0 mL/MinMercy Health Hepatitis B Core Total AntibodyNegativeNegativeMercy Health Comment on above:Performed at: - [facility] [id number] Director: John Tang PhD, Phone: [phone] Renteria comment.Mercy HealthComment on above:Not infected with HCV unless early or acute infection issuspected (which may be delayed in an immunocompromisedindividual), or other evidence exists to indicate HCVinfection.Hepatitis C RNA QuantitativeN/[facility] Creatinine Clearance (Chem88.23[facility] Nucleated erythrocytes [Presence] in Blood by Automated countOrdered By: Lex Carroll on 85-71-9720Ytnkskahr RBC Auto Ql (Bld)0.2 /100{WBC}0-0.5FSelect Medical TriHealth Rehabilitation HospitalPlatelet mean volume Auto (Bld) [Entitic vol]Ordered By: Lex Carroll on 56-20-3199Frvytocp mean volume (Bld) [Entitic vol]9.8 fL 6.6-10.1FSelect Medical TriHealth Rehabilitation HospitalPlatelet poor plasma international normalized ratio (INR) by coagulation assay (relatOrdered By: Lex Carroll on 06-72-2273PSG Coag (PPP) [Relative time]1.1 {INR}Mercy HealthComment on above:INR Therapeutic Range A) Pre- and [...] Auto (Bld) [#/Vol]Ordered By: Lex Carroll on 70-08-8412Xggmmesmv (Bld) [#/Vol]91 10*3/bR161-971NurcdadiuMercy HealthPotassium [Moles/volume] in Serum or PlasmaOrdered By: Lex Carroll on 08-92-7468Npcadexmj [Moles/Vol]5.0 mmol/L3.5-5.1FSelect Medical TriHealth Rehabilitation HospitalProtein [Mass/volume] in Serum or PlasmaOrdered By: Lex aCrroll on 73-39-0913Wxpejcg [Mass/Vol]6.4 g/dL6.4-8.9[facility] HealthRBC Auto (Bld) [#/Vol]Ordered By: Lex Carroll on 31-87-6568WLC (Bld) [#/Vol]3.68 10*6/uL3.90-5.60[facility] Hospitalerum jfwmk-2-rolxsavxwge measurementOrdered By: Lex Carroll on 53-82-7153Gxvab 1 antitrypsin [Mass/Vol] 205 mg/eV426-899JlhjhapelProMedica Fostoria Community Hospitalerum hepatitis B virus surface antibody detectionOrdered By: Lex Carroll on 84-51-5034QSA surface Ab Ql (S) Non-Reactive.Mercy HealthComment on above:Non Reactive: Inconsistent with immunity, less than 10 mIU/mL Reactive: Consistent with immunity, greater than 9.9 mIU/mLSerum mitochondria M2 IgG antibody assay (units/volume)Ordered By: Lex Carroll on 71-85-3358Wpjrorzzgcfa M2 IgG Qn (S) <20.0 Units0.0-20.0Mercy HealthComment on above:Negative 0.0 - 20.0 Equivocal 20.1 - 24.9 Positive >24.9Mitochondrial (M2) Antibodies are found in 90-96% ofpatients with primary biliary cirrhosis.Performed at: [facility] [id number] Director: John Tang PhD, Phone: [phone] or plasma albumin/globulin mass ratio Ordered By: Lex Carroll on 97-99-7831Kwuvsij/Globulin [Mass ratio]1.3 {ratio} [facility] Hospitalerum or plasma alpha 1 antitrypsin phenotyping identification by immunofixationOrdered By: Lex Carroll on 62-51-8917Dqdry 1 antitrypsin phenotyping Immunofixation NomMm.[facility] Comment on above:Phenotype Population A-1-AT Concentration* Incidence [...] reference. Ranges used to confirm phenotype.Performed at: [address] [id number] Director: John Tang PhD, Phone: [phone] at: [id number] Director: George Brown MD, Phone: [phone] or plasma anion gap determinationOrdered By: Lex Carroll on 48-18-7330Uvzdm gap [Moles/Vol]11.1 mmol/L6.0-15.0[facility] Hospitalerum or plasma ceruloplasmin measurement (mass/volume)Ordered By: Lex Carroll on 74-12-0631Dthsxsdhuortv [Mass/Vol]22.4 mg/dL16.0-31.0Mercy HealthComment on above:Performed at: [facility] [employer] [id number] Director: John Tang PhD, Phone: [phone] or plasma free cefuroxime measurement (mass/volume)Ordered By: Lex Carroll on 32-29-8427Noixgguwbc free [Mass/Vol]NegativeNegativeMercy HealthComment on above:Performed at: [facility] [employer] [id number] Director: John Tang PhD, Phone: [phone] or plasma high density lipoprotein (HDL) cholesterol measurementOrdered By: Lex Carroll on 49-48-7863Hmqxlfufuxc in HDL [Mass/Vol]60 mg/fJ32-55DrrppdvvsMercy HealthComment on above:HDL CHOL ATP-III CLASSIFICATION Cardiovascular RiskHDL > or equal to 60 mg/dL LOWHDL < 40 mg/dL HIGHSerum or plasma total cholesterol/high density lipoprotein (HDL) cholesterol mass rat Ordered By: Lex Carroll on 15-17-5293Cnatalzreyu.total/Cholesterol in HDL [Mass ratio]2.9 {ratio}<5.0[facility] Hospitalodium [Moles/volume] in Serum or PlasmaOrdered By: Lex Carroll on 13-09-2540Kfxbdp [Moles/Vol]141 mmol/I569-110LcxfbfcjaMercy HealthTriglyceride [Mass/volume] in Serum or PlasmaOrdered By: Lex Carroll on 09-21-2022 Triglyceride [Mass/Vol]107 mg/dL0-149Mercy HealthComment on above:TRIG ATP III CLASSIFICATIONTRIG less than 150 mg/dL NormalTRIG 150-199 mg/dL Borderline highTRIG 200-500 mg/dL High TRIG greater than 500 mg/dL Very highStandard traceable to the Center for Disease Conrtrol and Prevention (CDC) test method.Urea nitrogen [Mass/volume] in Serum or PlasmaOrdered By: Lex Carroll on 62-65-6701Kmjb nitrogen [Mass/Vol]9 mg/dL7-[facility]cy HealthWBC Auto (Bld) [#/Vol]Ordered By: Lex Carroll on 44-69-8665PHO (Bld) [#/Vol]4.2 10*3/uL4.1-10.5FSelect Medical TriHealth Rehabilitation Hospital Vital Signs Date TimeVital SignValuePerforming LzaqvxmhlFibfsffv16-03-3152 17:30-0400 Diastolic blood qxltxydy55 mm[Hg]Jane Correia MD Work Phone: [facility]07-30-2025 17:30-0400Heart rate74 /min Jane Correia MD Work Phone: [facility]07-30-2025 17:30-0400Respiratory rate 18 /minJane Correia MD Work Phone: [facility]07-30-2025 17:30-6525YpK3% (BldA) [Mass fraction]93 %Jane Correia MD Work Phone: [facility]07-30-2025 17:30-0400Systolic blood mlgvfoxy277 mm[Hg]Jane Correia MD Work Phone: [facility]07-30-2025 15:30-0400Body temperature 97.2 [degF]Jane Correia MD Work Phone: [facility]07-30-2025 14:26-0400Body tgqpsu976.3 cmJane Correia MD Work Phone: [facility]07-30-2025 14:26-0400Body mass index (BMI) [Ratio]22.15 kg/b4PchhlisngzbJane Correia MD Work Phone: [facility]07-30-2025 14:26-0400Body jvontb12.04 kgJane Correia MD Work Phone: [facility]05-05-2025 11:11-0400Body vyzvga420.3 cmArashen Hemmer PA Work Phone: [facility] HospitalQoadhplifr93-62-4505 11:11-0400Body mass index (BMI) [Ratio]28.5 kg/k3Pmjcn Hemmer PA Work Phone: [phone] [place], [place] [address]Jxxqpuhprl42-46-0129 11:11-0400Body mpkolfakcrr27 [degF]Xuan Hemmer PA Work Phone: [phone] HospitalSnaowmpqkj40-49-8414 11:11-0400Body .54 kgKaren Hemmer PA Work Phone: [phone] HospitalQrwlzcjujf11-97-9113 11:11-0400Diastolic blood jxnpkepm73 mm[Hg]Xuan Hemmer PA Work Phone: [phone] HospitalFdaodgbkkq00-31-9573 11:11-0400Heart rate82 /min Xuan Hemmer PA Work Phone: [facility] HospitalCurxjlznrp75-55-2525 11:11-0400Respiratory rate16 /minKaren Hemmer PA Work Phone: [phone] HospitalRppgndpcnt88-02-2968 11:11-5544LjM0% (BldA) [Mass fraction]98 %Xuan Hemmer PA Work Phone: [facility] HospitalTztyomkbwd79-37-8796 11:11-0400Systolic blood uebtikcy284 mm[Hg]Xuan MALDONADO Work Phone: [facility] HospitalYnoushukts73-56-8961 12:47-0400Diastolic blood qllgplso09 mm[Hg]Sanjay Robledo II Work Phone: [facility]04-15-2025 12:47-0400 Heart rate90 /Gracy Robledo II Work Phone: [phone] [place], [place] 3886604-15-2025 12:47-0400 Respiratory rate20 /Gracy Robledo II Work Phone: [phone] [place], [place] 3886604-15-2025 12:47-0400 SaO2% (BldA) [Mass fraction]97 %Sanjay Robledo II Work Phone: [phone] [place], [place] 3886604-15-2025 12:47-0400 Systolic blood pujqasrp132 mm[Hg]Sanjay Robledo II Work Phone: [phone] [place], [place] 3886604-15-2025 10:24-0400 Body iplzxg243.26 cmDajackie Robledo II Work Phone: [phone] [place], [place] 3886604-15-2025 10:24-0400 Body .64 kgDajackie Robledo II Work Phone: [phone] [place], [place] 3886604-10-2025 13:38-0400 Body mass index (BMI) [Ratio]26.89 kg/j7CiqqgDerrick Harris MD Work Phone: [phone]04-10-2025 13:38-0400Body temperature 98.4 [degF]Derrick Harris MD Work Phone: [phone]04-10-2025 13:38-0400Body hoiabp86.6 kgDerrick Harris MD Work Phone: [phone]04-10-2025 13:38-0400Diastolic blood uwekhqny34 mm[Hg]Derrick Harris MD Work Phone: [phone] HospitalComment on above:Copied from previous oxyc62-87-7613 13:38-0400Heart rate53 /minDerrick Harris MD Work Phone: [phone]04-10-2025 13:38-0400Respiratory rate 18 /minDerrick Harris MD Work Phone: [facility]04-10-2025 13:38-9471KnT7% (BldA) [Mass fraction]98 %Derrick Harris MD Work Phone: [phone]04-10-2025 13:38-0400Systolic blood ukbgbbee691 mm[Hg]Derrick Harris MD Work Phone: [phone] HospitalComment on above:Copied from previous kiad37-03-7686 11:40-0400Body hvpcuz109.3 cmSjigar Garg MD Work Phone: [facility]04-10-2025 11:40-0400Body mass index (BMI) [Ratio]26.88 kg/a8TetujhDmitri Garg MD Work Phone: [phone]04-10-2025 11:40-0400Body temperature 98.4 [degF]Dmtiri Garg MD Work Phone: [phone]04-10-2025 11:40-0400Body mebawk18.56 kgDmitri Garg MD Work Phone: [phone]04-10-2025 11:40-0400Diastolic blood asitaxaf09 mm[Hg]Dmitri Garg MD Work Phone: [facility]04-10-2025 11:40-0400Heart rate53 /min Dmitri Garg MD Work Phone: [facility]04-10-2025 11:40-3913FeQ9% (BldA) [Mass fraction]98 %Dmitri Garg MD Work Phone: [facility]04-10-2025 11:40-0400Systolic blood hcubnhol228 mm[Hg]Dmitri Garg MD Work Phone: [facility]03-21-2025 10:44-0400Body mass index (BMI) [Ratio]24.55 kg/w6HedhofMorales Gregg MD Work Phone: [facility]03-21-2025 10:44-0400Body judniv27.4 kgMorales Gregg MD Work Phone: [facility]03-21-2025 10:40-0400Heart rate53 /min Morales Gregg MD Work Phone: [facility]03-21-2025 10:40-0622JlC3% (BldA) [Mass fraction]95 %Morales Gregg MD Work Phone: [facility]03-21-2025 10:30-0400Diastolic blood ygflqvmr83 mm[Hg]Morales Gregg MD Work Phone: [facility]03-21-2025 10:30-0400Systolic blood fygzozrs98 mm[Hg]Morales Gregg MD Work Phone: [facility]03-21-2025 08:51-0400Body temperature 97.7 [degF]Morales Gregg MD Work Phone: [facility]03-21-2025 08:51-0400Respiratory rate 16 /minJojosh Gregg MD Work Phone: [facility]03-05-2025 14:34-0500Diastolic blood mm[Hg]Sanjay Robledo II Work Phone: [facility]03-05-2025 14:34-0500 Heart rate48 /minDgreg Robledo II Work Phone: [facility]03-05-2025 14:34-0500 Respiratory rate18 /minDgreg Robledo II Work Phone: [facility]03-05-2025 14:34-0500 SaO2% (BldA) [Mass fraction]94 %Sanjay Robledo II Work Phone: [facility]03-05-2025 14:34-0500 Systolic blood hexibjch29 mm[Hg]Sanjay Robledo II Work Phone: [facility]03-05-2025 12:13-0500 Body crkgzu104.26 cmDajackie Robledo II Work Phone: [facility]03-05-2025 12:13-0500 Body .37 kgDajackie Robledo II Work Phone: [facility]02-14-2025 10:00-0500 Body mass index (BMI) [Ratio]24.35 kg/q4Wuweanxabc [address]02-14-2025 10:00-0500Body gtqkah26.8 kgMer[facility] [address]02-14-2025 10:00-0500 Diastolic blood rmkxieta91 mm[Hg]Hepatology [address]02-14-2025 10:00-0500Heart rate51 /minMer[facility] Hospitallogy [address]02-14-2025 10:00-0500 SaO2% (BldA) [Mass fraction]99 %Hepatology [address]02-14-2025 10:00-0500Systolic blood sdadpjcs02 mm[Hg]Hepatology [address] 05-31-2024 08:43-0500Body cucogf757.3 cmChildren[facility]tology [address]02-14-2025 08:43-0500Body cyjqtbjeymx29.5 [degF]Hepatology [address]02-14-2025 08:43-0500Respiratory rate16 /minHelatology [address]02-13-2025 16:04-0500Diastolic blood urrqqkcs93 mm[Hg]Raymond Penaloza MD Work Phone: [facility]02-13-2025 16:04-0500Heart rate52 /min Raymond Penaloza MD Work Phone: [facility]02-13-2025 16:04-0500Respiratory rate 16 /minRaymond Penaloza MD Work Phone: [facility]02-13-2025 16:04-1929WeF7% (BldA) [Mass fraction]96 %Raymond Penaloza MD Work Phone: [facility]02-13-2025 16:04-0500Systolic blood mkjkmiqk64 mm[Hg]Raymond Penaloza MD Work Phone: [facility]02-13-2025 15:14-0500Body temperature 96.8 [degF]Raymond Penaloza MD Work Phone: [facility]02-06-2025 11:01-0500Body mass index (BMI) [Ratio]24.93 kg/h8NpgqglytrBrisa Bull MD Work Phone: [facility]02-06-2025 11:01-0500Body temperature 97.11 [degF]Brisa Bull MD Work Phone: [facility]02-06-2025 11:01-0500Body yoefie87.7 kgBrisa Bull MD Work Phone: [phone]02-06-2025 11:01-0500Diastolic blood mm[Hg]Brisa Bull MD Work Phone: [phone]02-06-2025 11:01-0500Heart rate60 /min Brisa Bull MD Work Phone: [facility]02-06-2025 11:01-0500Respiratory rate 16 /minBrisa Bull MD Work Phone: [phone]02-06-2025 11:01-9328UaP6% (BldA) [Mass fraction]100 %Brisa Bull MD Work Phone: [phone]02-06-2025 11:01-0500Systolic blood tpabcduq624 mm[Hg]Brisa Bull MD Work Phone: [phone]02-06-2025 10:41-0500Body mass index (BMI) [Ratio]24.93 kg/m2Pulm 8CThe [facility] HospitalYkrcih51-70-2508 10:41-0500Body weight 77.7 kgPulm 8CThe [facility] HospitalUcssgf57-26-8931 14:46-0500Diastolic blood ywqenbug51 mm[Hg]Brisa Seals MD Work Phone: [phone] Bellevue HospitalZclikk50-26-4133 14:46-0500Heart rate60 /min Brisa Seals MD Work Phone: [phone] Bellevue HospitalRldbko53-52-5253 14:46-0500Respiratory rate 17 /minBrisa Seals MD Work Phone: LThe Bellevue HospitalVfmavu89-27-3068 14:46-0486CsO2% (BldA) [Mass fraction]97 %Brisa Seals MD Work Phone: [phone] Bellevue HospitalAkjead78-58-9995 14:46-0500Systolic blood plvyrqsg214 mm[Hg]Brisa Seals MD Work Phone: [phone] Bellevue HospitalOzdtuk10-08-0278 12:29-0500Diastolic blood yzvrbywa11 mm[Hg]Jade Arora MD Work Phone: [place] [address]-16-2025 12:29-0500Systolic blood pnxavaeu138 mm[Hg]Jade Arora MD Work Phone: [phone] [address]-16-2025 12:28-0500Body yhhdis664.5 cmJade Arora MD Work Phone: [phone] [address]-16-2025 12:28-0500Body mass index (BMI) [Ratio]25.62 kg/m5WtmzxyJade Arora MD Work Phone: [place] [address]-16-2025 12:28-0500Body aspztj88.83 kgJade Arora MD Work Phone: [phone] [address]-16-2025 12:28-0500Heart rate52 /min Jade Arora MD Work Phone: [place] [address]-16-2025 12:28-9250AkT2% (BldA) [Mass fraction]97 %Jade Arora MD Work Phone: [facility]01-15-2025 12:00-0500Diastolic blood wpfgipxb37 mm[Hg]Hepatology [address]01-15-2025 12:00-0500Heart rate50 /minHepatology [address]01-15-2025 12:00-0500Respiratory rate18 /min Hepatology [address]01-15-2025 12:00-7046JlP9% (BldA) [Mass fraction] 100 %Hepatology [address]01-15-2025 12:00-0500Systolic blood pressure 119 mm[Hg]Hepatology [address]01-15-2025 11:50-0500Body mass index (BMI) [Ratio]24.81 kg/y7Adersgqnnn [address]01-15-2025 11:50-0500Body .2 kgHehorsham clinicy [address]Comment on above:post para weight 05-01-2024 10:22-0500Body wbjcwu353.3 cmHepatology [address]01-15-2025 10:22-0500Body vcxwozuqcdo95.3 [degF]Hepatology [address]01-15-2025 07:50-0500Body hygkza605.5 cmAnesthesia Clinic Work Phone: [phone]01-15-2025 07:50-0500Body mass index (BMI) [Ratio]26.06 kg/a5Zgmpgxzypf Clinic Work Phone: [phone]01-15-2025 07:50-0500Body temperature 97.59 [degF][facility] Work Phone: [phone]01-15-2025 07:50-0500Body mafefk54.19 kgAnesthesia Clinic Work Phone: [phone]01-15-2025 07:50-0500Diastolic blood suqadsoj24 mm[Hg][facility] Work Phone: [phone]01-15-2025 07:50-0500Heart rate56 /min [facility] Work Phone: [facility]01-15-2025 07:50-0500Respiratory rate 16 /minAnesthesia Clinic Work Phone: [phone]01-15-2025 07:50-5955BtF2% (BldA) [Mass fraction]97 %[facility] Work Phone: [phone]01-15-2025 07:50-0500Systolic blood uegogjkh080 mm[Hg][facility] Clinic Work Phone: [phone]01-14-2025 12:49-0500Body ximnwl278.5 Jhonny Weir MD Work Phone: [phone]01-14-2025 12:49-0500Body mass index (BMI) [Ratio]26.06 kg/i6AiwjfHal Weir MD Work Phone: [phone]01-14-2025 12:49-0500Body temperature 97.2 [degF]Hal Weir MD Work Phone: [phone]01-14-2025 12:49-0500Body vzaepc16.19 kgHal Weir MD Work Phone: [phone]01-14-2025 12:49-0500Diastolic blood wyfmgebt87 mm[Hg]Hal Weir MD Work Phone: [phone]01-14-2025 12:49-0500Heart rate53 /min Hal Weir MD Work Phone: [phone]01-14-2025 12:49-0500Respiratory rate 12 /minHal Weir MD Work Phone: [phone]01-14-2025 12:49-4812LcY3% (BldA) [Mass fraction]98 %Hal Weir MD Work Phone: [phone]01-14-2025 12:49-0500Systolic blood pcacxubg969 mm[Hg]Hal Weir MD Work Phone: [phone]01-13-2025 14:41-0500Body hfdeya333.5 Kyle Garg MD Work Phone: [facility]01-13-2025 14:41-0500Body mass index (BMI) [Ratio]26.06 kg/p1MxkxtbDmitri Garg MD Work Phone: [phone]01-13-2025 14:41-0500Body temperature 96.8 [degF]Dmitri Garg MD Work Phone: [phone]01-13-2025 14:41-0500Body yeqpik63.19 kgDmitri Gagr MD Work Phone: [phone]01-13-2025 14:41-0500Diastolic blood djiundim96 mm[Hg]Dmitri Garg MD Work Phone: [phone]01-13-2025 14:41-0500Heart rate50 /min Dmitri Garg MD Work Phone: [phone]01-13-2025 14:41-0500Respiratory rate 12 /minSjigar Garg MD Work Phone: [phone]01-13-2025 14:41-8569WuS4% (BldA) [Mass fraction]96 %Dmitri Garg MD Work Phone: [facility]01-13-2025 14:41-0500Systolic blood lvoiybxo550 mm[Hg]Dmitri Garg MD Work Phone: [phone]01-13-2025 10:58-0500Body jwvfir644.[address] Work Phone: [facility]01-13-2025 10:58-0500Body mass index (BMI) [Ratio]26.1 kg/b9Zztghza Crtalic-Sandy RD Work Phone: [facility]01-13-2025 10:58-0500Body .[address]rtalic-Sandy RD Work Phone: [facility]08-28-2024 13:44-0400Body jgtypb879.3 cmArashen Hemmer PA Work Phone: 1(211)[facility] [place], [place] [address]Pptjhbscnw63-02-7579 13:44-0400Body mass index (BMI) [Ratio]27.67 kg/w1Ihbfp Hemmer PA Work Phone: 1(121)[address] [place], [place] 4909308-28-2024 13:44-0400Body kg Xuan Hemmer PA Work Phone: 1(830)[address] [place], [place] 4909308-28-2024 13:44-0400Diastolic blood knqmgdoh34 mm[Hg]Xuan Hemmer PA Work Phone: 1(338)[address] [place], [place] 4909308-28-2024 13:44-0400Heart rate84 /min Xuan Hemmer PA Work Phone: 1(892)[address] [place], [place] 4909308-28-2024 13:44-0400Respiratory rate18 /minArashen Hemmer PA Work Phone: 1(370)[address] [place], [place] 4909308-28-2024 13:44-0326LxZ2% (BldA) [Mass fraction]97 %Xuan Hemmer PA Work Phone: 1(148)[address] [place], [place] 4909308-28-2024 13:44-0400Systolic blood dgaubrpq154 mm[Hg]Xuan Hemmer PA Work Phone: 1(818)[address] [place], [place] 4909303-20-2024 08:58-0400Body xtemge31.85 kgII Sanjay Robledo Work Phone: [phone])[address]03-20-2024 08:58-0400 Diastolic blood pgliktrd88 mm[Hg]II Sanjay Robledo Work Phone: 1(553)[address]03-20-2024 08:58-0400 Heart rate88 /minII Sanjay Robledo Work Phone: 1(073)[address] [place], [place] 9841803-20-2024 08:58-0400 Systolic blood lqgncujr860 mm[Hg]II Sanjay Robledo Work Phone: 1(195)[address]02-27-2024 17:15-0500 Diastolic blood tvyauwtc36 mm[Hg]II Sanjay Robledo Work Phone: 1(532)336-[address] [place], [place] 3886602-27-2024 17:15-0500 Heart rate72 /minII Sanjay Robledo Work Phone: 1(454)046-[address] [place], [place] 3886602-27-2024 17:15-0500 Respiratory rate20 /minII Sanjay Robledo Work Phone: 1(559)274-[address] [place], [place] 3886602-27-2024 17:15-0500 SaO2% (BldA) [Mass fraction]94 %II Sanjay Robledo Work Phone: 1(657)530-[address] [place], [place] 3886602-27-2024 17:15-0500 Systolic blood bohynlta528 mm[Hg]II Sanjay Robledo Work Phone: 1(129)[address]02-27-2024 13:38-0500 Body iumqrv111.26 cmII Sanjay Robledo Work Phone: 1(331)823-[address] [place], [place] 3886602-27-2024 13:38-0500 Body mass index (BMI) [Ratio]31.1 kg/m2II Sanjay Robledo Work Phone: 1(888)655-[address] [place], [place] 3886602-27-2024 13:38-0500 Body .7 kgII Sanjay Robledo Work Phone: 1(153)[address]02-27-2024 12:05-0500 Body cnckbjeblav40.2 [degF]II Sanjay Robledo Work Phone: 1(665)073-[address] [place], [place] 3886602-14-2024 15:07-0500 Body caidxq352.3 cmFredric Itzkowitz DO Work Phone: [facility] HospitalUfooyretlh76-21-8014 15:07-0500Body mass index (BMI) [Ratio]32.05 kg/a6Bkqgkau Itzkowitz DO Work Phone: [facility] HospitalUbebcovalh86-30-8028 15:07-0500Body usexoy53.43 kgFredric Itzkowitz DO Work Phone: [facility] HospitalBxghrbiskz18-93-8606 15:07-0500Diastolic blood pflcyskg79 mm[Hg]Brayan Itzkowitz DO Work Phone: [facility] HospitalSlhpcgfvlr17-79-4231 15:07-0500Systolic blood otuekqne179 mm[Hg]Brayan Itzkowitz DO Work Phone: [facility] HospitalXuwohecnwp05-10-5895 06:44-0500Body zmmiej125.26 cmII Sanjay Robledo Work Phone: [facility]02-06-2024 06:44-0500 Body wxlzoz13.79 kgII Sanjay Robledo Work Phone: [facility]02-01-2024 14:04-0500 Body xvhclo422.3 cmFredric Itzkowitz DO Work Phone: [facility] HospitalBjzjkzbevp69-67-6756 14:04-0500Body mass index (BMI) [Ratio]32.78 kg/o6Rfxxter Itzkowitz DO Work Phone: 1(767)[facility] [place], [place] [address]Waylnweeur31-90-5432 14:04-0500Body mhcjni712.7 kgFredric Itzkowitz DO Work Phone: 1(748)[facility]-9164[facility] HospitalQkpyrykcjd96-82-4477 14:04-0500Diastolic blood tymqkjpu83 mm[Hg]Brayan Itzkowitz DO Work Phone: [facility] HospitalDrflpgpqyx60-74-1735 14:04-0500Systolic blood lqcfuwti048 mm[Hg]Brayan Itzkowitz DO Work Phone: 1(701)[address] [place], [place] 1241412-27-2023 11:00-0500Body .26 cmRyan Scovanner Other [facility]12-27-2023 11:00-0500 Body mass index (BMI) [Ratio]33.22 kg/m2Ryan Scovanner Other [employer] Other 12-27-2023 11:00-0500Body vhodzn549.06 kgRyan Scovanner Other [employer] Other 12-27-2023 11:00-0500Body jszbas999.05 kgII Sanjay Robledo Work Phone: [facility]12-27-2023 11:00-0500 Diastolic blood yssijwjw74 mm[Hg]Rick Scovanner Other [facility]12-27-2023 11:00-0500 Systolic blood dswlgtfa786 mm[Hg]Rick Scovanthuy Other [facility]07-27-2023 11:00-0400 Body .79 kgRyyoli Scovanner Other [employer] Other 07-27-2023 11:00-0400Diastolic blood qzpyzezu29 mm[Hg] Rick Scnaya Other [employer] Other 07-27-2023 11:00-0400Systolic blood ddfafkuv492 mm[Hg] Rick Scnaya Other [employer] Other 06-07-2023 08:49-0400Diastolic blood gbxnkaoj61 mm[Hg] II Sanjay Robledo Work Phone: [facility]06-07-2023 08:49-0400 Heart rate50 /minII Sanjay Robledo Work Phone: [facility]06-07-2023 08:49-0400 SaO2% (BldA) [Mass fraction]99 %II Sanjay Robledo Work Phone: [facility]06-07-2023 08:49-0400 Systolic blood ggiadkce479 mm[Hg]II Sanjay Robledo Work Phone: [facility]06-07-2023 07:36-0400 Body kifxnd636.26 cmII Sanjay Robledo Work Phone: [facility]06-07-2023 07:36-0400 Body wqfyiqyfzqn52.5 [degF]II Sanjay Robledo Work Phone: [facility]06-07-2023 07:36-0400 Body hkkrny50.25 kgII Sanjay Robledo Work Phone: [facility]06-07-2023 07:36-0400 Respiratory rate16 /minII Sanjay Robledo Work Phone: [facility] Encounters Encounter DateEncounter TypeCare ProviderFacilityStart: 02-18-2025 End: 87-74-5104nwlyyjxlenIZCSEE B BERRY IIFacility:[facility] Start: 02-10-2025 End: 82-25-9448lroryitbcsVFPWFQ Patricia ROBLEDO IIFacility:[facility] Start: 01-28-2025 End: 06-04-1184idckeymxivWUXTHH Patricia ROBLEDO IIFacility:[facility] Start: 51-02-7767lalgltncqoHVSZOS B VENKAT [facility]Facility[facility] 01-24-2025 End: 67-07-4661Yvmghnjtw Result EncounterGeneric External Data ProviderNOMS External Department UnsolicitedStart: 01-24-2025 End: 56-39-7571Vrrmvylea Result EncounterGeneric External Data ProviderNOMS External Department UnsolicitedStart: 01-20-2025 End: 66-87-2406Bwanddvsd Result EncounterGeneric External Data ProviderNOMS External Department UnsolicitedStart: 01-20-2025 End: 06-07-0969Ngjjpgmqb Result EncounterGeneric External Data ProviderNOMS External Department UnsolicitedStart: 01-16-2025 End: 17-78-0231Qgdqqvugt Result EncounterGeneric External Data ProviderNOMS External Department UnsolicitedStart: 01-16-2025 End: 98-99-6783Mbovmlnum Result EncounterGeneric External Data ProviderNOMS External Department UnsolicitedStart: 01-15-2025 End: 05-42-3398Hqkluvyzd Result EncounterGeneric External Data ProviderNOMS External Department UnsolicitedStart: 01-15-2025 End: 63-43-9871Dtaqpjuyi Result EncounterGeneric External Data ProviderNOMS External Department UnsolicitedStart: 01-14-2025 End: 94-38-4206volpbvvovnMDBEB GHAFFARIFacility:[facility]tart: 01-08-2025 End: 32-78-0075Qslayfcoa Result EncounterGeneric External Data ProviderNOMS External Department UnsolicitedStart: 01-08-2025 End: 14-43-3265Ujyhoxaer Result EncounterGeneric External Data ProviderNOMS External Department UnsolicitedStart: 01-06-2025 End: 03-56-1166Sgixgouqi Result EncounterGeneric External Data ProviderNOMS External Department UnsolicitedStart: 01-06-2025 End: 48-90-4427Adsftbzue Result EncounterGeneric External Data ProviderNOMS External Department UnsolicitedStart: 01-02-2025 End: 21-22-6718Hseziiwnt Result EncounterGeneric External Data ProviderNOMS External Department UnsolicitedStart: 01-02-2025 End: 27-05-6813Oebwwtukk Result EncounterGeneric External Data ProviderNOMS External Department UnsolicitedStart: 12-25-2024 End: 11-69-9815Bldulgbiy Result EncounterGeneric External Data ProviderNOMS External Department UnsolicitedStart: 12-25-2024 End: 30-65-3513Nonnduqhu Result EncounterGeneric External Data ProviderNOMS External Department UnsolicitedStart: 12-23-2024 End: 23-95-6187Kffrokebb Result EncounterGeneric External Data ProviderNOMS External Department UnsolicitedStart: 12-23-2024 End: 94-85-9608Ptedjszbl Result EncounterGeneric External Data ProviderNOMS External Department UnsolicitedStart: 12-20-2024 End: 50-14-4955Xqjokkzou Result EncounterGeneric External Data ProviderNOMS External Department UnsolicitedStart: 12-20-2024 End: 01-41-0249Xrxexyrus Result EncounterGeneric External Data ProviderNOMS External Department UnsolicitedStart: 12-19-2024 End: 22-75-1115Nxquhvfkl Result EncounterGeneric External Data ProviderNOMS External Department UnsolicitedStart: 12-19-2024 End: 34-79-6804Fveeheiks Result EncounterGeneric External Data ProviderNOMS External Department UnsolicitedStart: 12-17-2024 End: 51-19-5321Mcxozovws Result EncounterGeneric External Data ProviderNOMS External Department UnsolicitedStart: 12-17-2024 End: 94-66-3598Efejdjsgd Result EncounterGeneric External Data ProviderNOMS External Department UnsolicitedStart: 12-16-2024 End: 04-38-6703Kowvhlnjb Result EncounterGeneric External Data ProviderNOMS External Department UnsolicitedStart: 12-16-2024 End: 14-66-9145Htznszyrv Result EncounterGeneric External Data ProviderNOMS External Department UnsolicitedStart: 12-14-2024 End: 80-51-6825Kcpshgctu Result EncounterGeneric External Data ProviderNOMS External Department UnsolicitedStart: 12-14-2024 End: 37-87-7329Vqqgfeuew Result EncounterGeneric External Data ProviderNOMS External Department UnsolicitedStart: 12-11-2024 End: 69-11-2080Acjscnoco Result EncounterGeneric External Data ProviderNOMS External Department UnsolicitedStart: 12-11-2024 End: 36-66-6686Hzqpdlvab Result EncounterGeneric External Data ProviderNOMS External Department UnsolicitedStart: 12-10-2024 End: 46-65-3256Rpftsvmie Result EncounterGeneric External Data ProviderNOMS External Department UnsolicitedStart: 12-10-2024 End: 26-02-0774Esimykqeu Result EncounterGeneric External Data ProviderNOMS External Department UnsolicitedStart: 12-05-2024 End: 89-22-5038Asadqbadt Result EncounterGeneric External Data ProviderNOMS External Department UnsolicitedStart: 12-05-2024 End: 76-35-8804Zlxxvxbhz Result EncounterGeneric External Data ProviderNOMS External Department UnsolicitedStart: 11-25-2024 End: 52-42-4301Chkycyaxm Result EncounterGeneric External Data ProviderNOMS External Department UnsolicitedStart: 11-25-2024 End: 86-75-1431Jsbohwdpb Result EncounterGeneric External Data ProviderNOMS External Department UnsolicitedStart: 11-22-2024 End: 29-80-5806Gqkmpzjsh Result EncounterGeneric External Data ProviderNOMS External Department UnsolicitedStart: 11-22-2024 End: 96-61-5272Kyzpuindl Result EncounterGeneric External Data ProviderNOMS External Department UnsolicitedStart: 11-22-2024 End: 35-00-9730Laynwlowyd and management of inpatientDANIEL B ROBLEDO II [facility]: 11-21-2024 End: 57-03-5219Nerbjqtuy Result EncounterGeneric External Data ProviderNOMS External Department UnsolicitedStart: 11-21-2024 End: 20-12-4512Hytqqwiow Result EncounterGeneric External Data ProviderNOMS External Department UnsolicitedStart: 11-19-2024 End: 16-39-2847kpxuforexwAwaprnk D KatkoFirMer[facility] Work Phone: Start: 11-19-2024 End: 75-47-5954Pissxwyr ReferredAlbin Mitchell DO-LAB [facility] Start: 11-19-2024 End: 75-24-9550Latdpdmei Result EncounterGeneric External Data ProviderNOMS External Department UnsolicitedStart: 11-19-2024 End: 09-14-4140Bqextqnkv Result EncounterGeneric External Data ProviderNOMS External Department UnsolicitedStart: 11-19-2024 End: 80-19-5617Sreesbtqs encounterLiver Txp Coordinator Work Phone: Transplant CenterComment on above:Update ([facility] admit) Start: 11-18-2024 End: 54-91-2161Jqgelpxus encounterLiver Txp Coordinator Work Phone: Transplant CenterComment on above:Return Call Request f/u dc phone callStart: 11-15-2024 End: 47-58-0332ceevlaqycuGgkvowk Singam MD Work Phone: Infectious DiseaseComment on above:CoPat StopStart: 11-15-2024 End: 04-77-8987Mvzyiwfab Result EncounterGeneric External Data ProviderNOMS External Department UnsolicitedStart: 11-15-2024 End: 41-08-0782Lhzrskfnx Result EncounterGeneric External Data ProviderNOMS External Department UnsolicitedStart: 11-14-2024 End: 98-13-7604Wkrsde outpatient visit 25 minutesJennie Nicholson MD Work Phone: Infectious DiseaseComment on above:VRE infection (vancomycin resistant Enterococcus) (Primary Dx)Start: 11-14-2024 End: 70-92-6287rwatuzdlvtCOFTPM B BERRY IIFacility:[facility] Start: 11-14-2024 End: 67-05-3422Bpzcwnubi Result EncounterGeneric External Data ProviderNOMS External Department UnsolicitedStart: 11-14-2024 End: 47-28-9854Ahwcxbsqi Result EncounterGeneric External Data ProviderNOMS External Department UnsolicitedStart: 11-13-2024 End: 80-64-2231Pqbjvelln Result EncounterGeneric External Data ProviderNOMS External Department UnsolicitedStart: 11-13-2024 End: 35-99-4004Firpaiivo Result EncounterGeneric External Data ProviderNOMS External Department UnsolicitedStart: 11-13-2024 End: 66-13-8924Ysiqoi OnlyJane Correia MD Work Phone: GastroenterologyComment on above: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, 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] Start: 11-12-2024 End: 30-11-4144ShjvouBogc L Nikolic RNTransplant CenterStart: 11-11-2024 End: 44-27-1026Jteetlmmo Result EncounterGeneric External Data ProviderNOMS External Department UnsolicitedStart: 11-11-2024 End: 25-86-9662Emgkjodhw Result EncounterGeneric External Data ProviderNOMS External Department UnsolicitedStart: 11-11-2024 End: 87-32-0996Idvbbjuyw Araceli Fatima RNGastroenterologyComment on above:Preforms Laminator - OtherStart: 11-08-2024 End: 64-58-7000Xpenyyhis Result EncounterGeneric External Data ProviderNOMS External Department UnsolicitedStart: 11-08-2024 End: 21-74-6766Qbtzhijsq Result EncounterGeneric External Data ProviderNOMS External Department UnsolicitedStart: 11-07-2024 End: 62-90-1990hllhaduwmtWloqo Yun Kim RPhInfectious DiseaseComment on above: CoPat Management (Lab review)Start: 11-07-2024 End: 66-86-1055Nnuvoutvu Result EncounterGeneric External Data ProviderNOMS External Department UnsolicitedStart: 11-07-2024 End: 11-74-1791Qfalsepub Result EncounterGeneric External Data ProviderNOMS External Department UnsolicitedStart: 11-06-2024 End: 08-29-9232paiymapkcxVvcw L Nikolic RNTransplant CenterStart: 11-06-2024 End: 19-58-8559Hjpexao encounter procedureCarina Ziegler RNTransplant Center Comment on above:Appt 7-30Start: 11-05-2024 End: 10-91-9032Pbiqiy OnlyCarina Ziegler RNTransplant CenterStart: 11-04-2024 End: 31-29-5990Tppoyfepu Result EncounterGeneric External Data ProviderNOMS External Department UnsolicitedStart: 11-04-2024 End: 55-33-6737Ocqvzfcql Result EncounterGeneric External Data ProviderNOMS External Department UnsolicitedStart: 11-02-2024 End: 39-76-9697Guwuztrhu Result EncounterGeneric External Data ProviderNOMS External Department UnsolicitedStart: 11-02-2024 End: 08-72-3997Hsmoewovc Result EncounterGeneric External Data ProviderNOMS External Department UnsolicitedStart: 11-01-2024 End: 25-65-0183Kygbdxsme Result EncounterGeneric External Data ProviderNOMS External Department UnsolicitedStart: 11-01-2024 End: 08-38-0314Ogwygpcse Result EncounterGeneric External Data ProviderNOMS External Department UnsolicitedStart: 10-31-2024 End: 86-75-1711ckknecrlrnAvozs Yun Kim RPhInfectious DiseaseStart: 10-31-2024 End: 76-90-3309Paknophpd Result EncounterGeneric External Data ProviderNOMS External Department UnsolicitedStart: 10-31-2024 End: 37-81-1150Uimftsdfo Result EncounterGeneric External Data ProviderNOMS External Department UnsolicitedStart: 10-31-2024 End: 97-81-0726Syimgj-up encounterTrakymberly Dhillon RNTransplant CenterStart: 10-31-2024 End: 62-86-2180Cthymep encounter procedureChkatharine Maldonado RPhInfectious Disease Comment on above: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; CoPat AgencyStart: 10-30-2024 End: 99-48-9286tadixqtnyhQKQMW GHAFFARIFacility:[facility]art: 10-30-2024 End: 80-06-6245Xpgsckjlpf hospital visit by Naila Cruz DO Work Phone: [facility]Start: 10-30-2024 End: 20-23-3693Ufnsddimq Result EncounterGeneric External Data ProviderNOMS External Department UnsolicitedStart: 10-30-2024 End: 39-11-4735Dmtooykft Result EncounterGeneric External Data ProviderNOMS External Department UnsolicitedStart: 10-23-2024 End: 71-10-1204thgfbwhceoJxqqwqv Singam MD Work Phone: [facility] HOSPComment on above:CoPat StartStart: 10-17-2024 End: 78-58-6657Exraodniz Result EncounterGeneric External Data ProviderNOMS External Department UnsolicitedStart: 10-17-2024 End: 65-25-4289Ntiwexrem Result EncounterGeneric External Data ProviderNOMS External Department UnsolicitedStart: 10-14-2024 End: 05-45-4327Xnonsxfsz Result EncounterGeneric External Data ProviderNOMS External Department UnsolicitedStart: 10-14-2024 End: 06-53-2043Jxrebioht Result EncounterGeneric External Data ProviderNOMS External Department UnsolicitedStart: 10-12-2024 End: 58-34-6055Vsrmmsqka Result EncounterGeneric External Data ProviderNOMS External Department UnsolicitedStart: 10-12-2024 End: 39-64-7495Otfbkqdjv Result EncounterGeneric External Data ProviderNOMS External Department UnsolicitedStart: 10-11-2024 End: 91-11-7282Xexqwv-up encounterCarina Ziegler RNTransplant CenterStart: 10-08-2024 End: 46-42-5354Dejgkmdcp Result EncounterGeneric External Data ProviderNOMS External Department UnsolicitedStart: 10-08-2024 End: 21-33-7438Gtotkfkvx Result EncounterGeneric External Data ProviderNOMS External Department UnsolicitedStart: 10-07-2024 End: 17-84-2321Czsinuirzp and management of inpatientDANIEL B ROBLEDO II [facility]: 10-07-2024 End: 80-77-9508ygghtmrfptBjhftjjJanay Ryan APRN.CNP Work Phone: Transplant CenterStart: 10-07-2024 End: 57-08-2876Xvodjtppv Result EncounterGeneric External Data ProviderNOMS External Department UnsolicitedStart: 10-07-2024 End: 12-57-6696Oojobnssu Result EncounterGeneric External Data ProviderNOMS External Department UnsolicitedStart: 10-07-2024 End: 73-58-1914Kgoxfoovyn hospital visit by physicianCt [facility] ([facility]) Work Phone: [facility] Radiology CT ScanStart: 10-05-2024 End: 58-80-6472Ieroqypcb Result EncounterGeneric External Data ProviderNOMS External Department UnsolicitedStart: 10-05-2024 End: 53-10-2855Bxrbhepjb Result EncounterGeneric External Data ProviderNOMS External Department UnsolicitedStart: 10-04-2024 End: 84-25-1826Gxlqzxcnq Result EncounterGeneric External Data ProviderNOMS External Department UnsolicitedStart: 10-04-2024 End: 19-74-4009Jitngwods Result EncounterGeneric External Data ProviderNOMS External Department UnsolicitedStart: 10-03-2024 End: 72-54-7905Myxgcgmay Result EncounterGeneric External Data ProviderNOMS External Department UnsolicitedStart: 10-03-2024 End: 36-92-5597Fyqdwclsf Result EncounterGeneric External Data ProviderNOMS External Department UnsolicitedStart: 10-03-2024 End: 31-49-6740Yixjflnhl encounterLiver Txp Coordinator Work Phone: Transplant CenterComment on above:Return Call Request Start: 10-02-2024 End: 28-74-5778ggcqokpcczQutjm Hyuck David Kwon MD Work Phone: Transplant CenterComment on above:SuturesStart: 10-02-2024 End: 35-21-6865Cthuwvjqd Result EncounterGeneric External Data ProviderNOMS External Department UnsolicitedStart: 10-02-2024 End: 33-17-9679Qkxztllxh Result EncounterGeneric External Data ProviderNOMS External Department UnsolicitedStart: 10-01-2024 End: 04-43-1285Dtgln Antoine Ryan APRN.CNP Work Phone: Transplant CenterComment on above:Liver Pathology Review; HCC Ferris ScoreStart: 10-01-2024 End: 08-08-8817Fmaavivih Result EncounterGeneric External Data ProviderNOMS External Department UnsolicitedStart: 10-01-2024 End: 58-93-5123Vfsstzytl Result EncounterGeneric External Data ProviderNOMS External Department UnsolicitedStart: 10-01-2024 End: 29-19-3401Yfurdr-up encounterCarina Ziegler RNTransplant CenterStart: 09-30-2024 End: 76-83-0498Ucocbjyqx Result EncounterGeneric External Data ProviderNOMS External Department UnsolicitedStart: 09-30-2024 End: 24-40-0484Xfqsdvexe Result EncounterGeneric External Data ProviderNOMS External Department UnsolicitedStart: 09-29-2024 End: 11-36-6230wxeyqyedixGWXZD GHAFFARIFacility:[facility] Hospitaltart: 09-29-2024 End: 24-65-9942Udgsschgfn hospital visit by Naila Cruz DO Work Phone: [facility]Start: 09-29-2024 End: 88-12-9248Xzxerzlet Result EncounterGeneric External Data ProviderNOMS External Department UnsolicitedStart: 09-29-2024 End: 91-01-1106Delomhrsn Result EncounterGeneric External Data ProviderNOMS External Department UnsolicitedStart: 09-28-2024 End: 59-92-6133Xeuoaxbvm Result EncounterGeneric External Data ProviderNOMS External Department UnsolicitedStart: 09-28-2024 End: 83-37-0182Nutxtboaz Result EncounterGeneric External Data ProviderNOMS External Department UnsolicitedStart: 09-24-2024 End: 01-35-5597Asrscyhxe Result EncounterGeneric External Data ProviderNOMS External Department UnsolicitedStart: 09-24-2024 End: 64-07-5205Xuzvoyvxr Result EncounterGeneric External Data ProviderNOMS External Department UnsolicitedStart: 09-18-2024 End: 62-95-5168Kbinpjtvi encounterCarina Ziegler RNTransplant CenterComment on above:dc ed schedulingStart: 57-83-7126Fxweqbt encounter statusCarina Ziegler RN [facility]tart: 09-10-2024 End: 62-26-0812Vfqvg abstractJabier Vázquez RNTransplant CenterComment on above:Transplant SerologiesStart: 09-09-2024 End: 67-68-1931Euabymzsk Result EncounterGeneric External Data ProviderNOMS External Department UnsolicitedStart: 09-09-2024 End: 20-58-1142Hgqmthciw Result EncounterGeneric External Data ProviderNOMS External Department UnsolicitedStart: 09-08-2024 End: 42-41-0517Ahfqfkifn Result EncounterGeneric External Data ProviderNOMS External Department UnsolicitedStart: 09-08-2024 End: 09-73-0186Mshhgjcye Result EncounterGeneric External Data ProviderNOMS External Department UnsolicitedStart: 09-08-2024 End: 21-28-1527Xzgvwrexj encounterVirginia Blevins RRTTransplant CenterStart: 09-06-2024 End: 67-39-1956Hdnykmokh Result EncounterGeneric External Data ProviderNOMS External Department UnsolicitedStart: 09-06-2024 End: 19-66-9827Isgdhdkov Result EncounterGeneric External Data ProviderNOMS External Department UnsolicitedStart: 09-04-2024 End: 17-85-9872Ykweou-up encounterGinaa Kingston MD Work Phone: GastroenterologyStart: 09-02-2024 End: 30-33-1060Rwacivuag Result EncounterGeneric External Data ProviderNOMS External Department UnsolicitedStart: 09-02-2024 End: 28-78-1532Cuvqupjmp Result EncounterGeneric External Data ProviderNOMS External Department UnsolicitedStart: 09-02-2024 End: 64-87-2741Czwmuyvjc encounterYesica Bright RNTransplant CenterStart: 09-01-2024 End: 93-67-0490Isxutnvoq Result EncounterGeneric External Data ProviderNOMS External Department UnsolicitedStart: 09-01-2024 End: 82-07-4369Mvuiwtmjq Result EncounterGeneric External Data ProviderNOMS External Department UnsolicitedStart: 08-31-2024 End: 72-46-6511Heqetxxwp Result EncounterGeneric External Data ProviderNOMS External Department UnsolicitedStart: 08-31-2024 End: 56-74-9956Ghihjxnht Result EncounterGeneric External Data ProviderNOMS External Department UnsolicitedStart: 03-25-1092Uezefrc encounter statusYesica Bright RNCleveland ClinicStart: 08-29-2024 End: 55-72-9804Xcjbkfjjx encounterYesica Bright RNPsanta clara [facility] HospitalComment on above:OLT selection mtg pt notificationStart: 08-28-2024 End: 74-02-1700Abpaumlver and management of inpatientVenus Markie DMD Work Phone: DentistryComment on above:Hepatic encephalopathy (HCC) (Primary Dx); Decompensated cirrhosis (HCC); Pre-operative clearanceStart: 08-28-2024 End: 20-87-5433Sfnpzkghxqjv stateMyyaz Aden DMD Work Phone: [facility]tart: 08-27-2024 End: 46-10-5523Kmnxhwrcf Result EncounterGeneric External Data ProviderNOMS External Department UnsolicitedStart: 08-27-2024 End: 90-70-6071Fkcqaufqd Result EncounterGeneric External Data ProviderNOMS External Department UnsolicitedStart: 08-27-2024 End: 65-50-9993Ejlknd OnlyLijosselyn Txp Coordinator Work Phone: Transplant CenterComment on above:Laennec's cirrhosis (HCC) (Primary Dx)Informed Consent (91); Patient EducationStart: 08-27-2024 End: 76-56-9210Rboirpouom and management of inpatientLisa Chava ATKINS Work Phone: Transplant CenterStart: 08-26-2024 End: 14-95-6336Jjakkc Jaziel Black PA-C Work Phone: gastroenterologyComment on above:Other ascites (Primary Dx)Start: 08-24-2024 End: 73-07-8912ihrcdxwjmtXyehdn Junna MD Work Phone: GastroenterologyComment on above:[place] [facility] in [place] HospStart: 08-23-2024 End: 13-94-0847Qiltsohwv Result EncounterGeneric External Data ProviderNOMS External Department UnsolicitedStart: 08-23-2024 End: 43-37-1286Tufeudlbe Result EncounterGeneric External Data ProviderNOMS External Department UnsolicitedStart: 08-23-2024 End: 86-96-5102Uxzrcuycws and management of inpatientWALNICOL CARRERAMOUD Facility[facility]: 08-22-2024 End: 07-20-8945Swxrmkbnn Elaine Garg MD Work Phone: GastroenterologyComment on above:Patient Update Abnormal bone scan of thoracic spine (Primary Dx)Start: 08-20-2024 End: 66-03-1413wttmwbatocOxkfsxgeo M Jones RNGastroenterologyStart: 08-20-2024 End: 67-67-7797Ybbabi-up encounterSjigar Garg MD Work Phone: Transplant CenterStart: 08-19-2024 End: 28-21-3137Btfrgq flowsMehran Espino PA Work Phone: NOMS CI FMStart: 08-19-2024 End: 39-77-1009Cbqogc flowsMehran Espino PA Work Phone: NOMS CI FMStart: 08-19-2024 End: 54-83-7410Bpjvax outpatient visit 15 minutesXuan Espino PA Work Phone: NOMS CI FMComment on above:Other acute postprocedural pain (Primary Dx); Type 2 diabetes mellitus with hyperglycemia, without long-term current use of insulin (CMS/HCC)Start: 08-19-2024 End: 91-37-0473hqvmgirfqmOEAWE M HEMMERNot AvailableStart: 08-14-2024 End: 99-56-9099Cbjjat Irina Garg MD Work Phone: GastroenterologyComment on above:Cirrhosis of liver without ascites, unspecified hepatic cirrhosis type (HCC) (Primary Dx); Liver transplant candidate; Lesion of liver greater than 1 cm in diameter; Alcoholic cirrhosis of liver with ascites (HCC)Colonoscopy Prep the day before procedureColonoscopyStart: 08-12-2024 End: 61-30-0001Fcjtek Irina Garg MD Work Phone: GastroenterologyComment on above:Encounter for screening colonoscopy (Primary Dx)Start: 08-09-2024 End: 42-73-2640wzkrqubvxzEdrltc Junna MD Work Phone: GastroenterologyComment on above:EGDStart: 08-09-2024 End: 26-55-0810S-mail encounter from Latha Garg MD Work Phone: GastroenterologyStart: 08-06-2024 End: 97-41-7556Lryatkdmg Result EncounterGeneric External Data ProviderNOMS External Department UnsolicitedStart: 08-06-2024 End: 81-72-5866Pxaxvqknn Result EncounterGeneric External Data ProviderNOMS External Department UnsolicitedStart: 08-06-2024 End: 33-06-9984twoptuqaxfXHMEQL B BERRY IIFacility:[facility] Start: 08-05-2024 End: 09-71-3630Mqkhvafye Result EncounterGeneric External Data ProviderNOMS External Department UnsolicitedStart: 08-05-2024 End: 48-44-5000Skppjmttp Result EncounterGeneric External Data ProviderNOMS External Department UnsolicitedStart: 07-31-2024 End: 22-26-9044Dwuefefzq Result EncounterGeneric External Data ProviderNOMS External Department UnsolicitedStart: 07-31-2024 End: 58-84-8521Fggvvxkos Result EncounterGeneric External Data ProviderNOMS External Department UnsolicitedStart: 07-31-2024 End: 19-38-2745Wxiogtpjr encounterSjigar Garg MD Work Phone: GastroenterologyComment on above:ResultsStart: 07-30-2024 End: 17-79-5867Fhhetvrob encounterDerrick Harris MD Work Phone: Radiation OncologyComment on above:Preforms Laminator - OtherBiopsy RequestStart: 07-30-2024 End: 53-01-6109Dfbqnisjq to same day surgery castorlandSanjay Robledo II Work Phone: [facility] [place] Work Phone: Start: 07-30-2024 End: 44-54-2582nmydlzzklyFyslkp Berry II Work Phone: [facility] Work Phone: Start: 07-25-2024 End: 40-15-7293Uqxkgdl encounter procedureDerrick Harris MD Work Phone: Radiation OncologyComment on above:Hepatocellular carcinoma (HCC) (Primary Dx)Start: 07-25-2024 End: 33-23-2948pwdtshojbnDMTMFM B BERRY IIFacility:[facility] Start: 07-25-2024 End: 01-85-3314Efylca outpatient visit 25 minutesDmitri Garg MD Work Phone: GastroenterologyComment on above:Cirrhosis of liver without ascites, unspecified hepatic cirrhosis type (HCC) (Primary Dx)Start: 07-15-2024 End: 77-27-6593Pwylrideb encounterSjigar Garg MD Work Phone: GastroenterologyComment on above:Outside Lab Results Start: 07-13-2024 End: 80-80-7804Jxiybkugk Result EncounterGeneric External Data ProviderNOMS External Department UnsolicitedStart: 07-13-2024 End: 63-36-5783Uigijfccm Result EncounterGeneric External Data ProviderNOMS External Department UnsolicitedStart: 07-12-2024 End: 32-61-0013Ixucba Irian Garg MD Work Phone: GastroenterologyComment on above:Metastatic malignant neoplasm, unspecified site (HCC) (Primary Dx)Start: 07-11-2024 End: 76-95-1835ukmlnesomtJgy ProviderGastroenterologyComment on above:Weekly Lab drawStart: 07-11-2024 End: 95-89-4097W-mail encounter from caregiverCcf ProviderGastroenterologyStart: 07-11-2024 End: 69-39-9738Unxbjpldx encounterYesica Bright RNTransplant CenterComment on above:OLT selection mtg pt notificationStart: 07-08-2024 End: 61-39-1028H-mail encounter from caregiverCcf ProviderGastroenterologyStart: 07-08-2024 End: 13-81-2924Hxfcinc encounter procedureCcf ProviderGastroenterologyComment on above:Tumor clinic appt with Dr Brewertart: 07-08-2024 End: 10-24-6798Klhhsbqhp encounterYesica Bright RNTransplant CenterComment on above:OLT evaluationStart: 07-07-2024 End: 35-45-9127Uwopwq Irina Garg MD Work Phone: Transplant CenterComment on above: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) (Primary Dx)Start: 07-05-2024 End: 97-88-3775uubenxcybsSZRLAB B BERRY IIFacility:[facility] Start: 07-05-2024 End: 49-62-4512Kotarpkhud hospital visit by Louise 6 Radio Main Q (I-Stat/1.5t/3t) Work Phone: MRI QComment on above:Pathological fracture, other site, initial encounter for fracture [M84.48XA]Start: 07-05-2024 End: 51-73-6174sbepsyqktsNQTELP B BERRY IIFacility:[facility] Start: 07-05-2024 End: 84-45-3167Qdymgblkve hospital visit by Sharon Gregg MD Work Phone: GastroenterologyComment on above:Pleural effusion [J90]Start: 07-02-2024 End: 82-88-1877Rqjsrg Irina Garg MD Work Phone: Transplant CenterComment on above:Other ascites (Primary Dx)Start: 07-01-2024 End: 51-24-0248Gnovfcpxg encounterYesica Bright RNTransplant CenterComment on above:Follow UpStart: 06-24-2024 End: 80-18-9724Cbqdmdlxr encounterSjigar Garg MD Work Phone: GastroenterologyComment on above:Outside Labs Results (chemistry)Start: 06-19-2024 End: 34-16-6209Vpbzwjkdn encounterNenita Readus HUCAdmittingComment on above: Appointment; (Thoracentesis)Liver transplant candidate (Primary Dx)Start: 06-19-2024 End: 89-45-8093Xlmgtkluu to same day surgery centerDajackie Robledo II Work Phone: [facility] [place] Work Phone: Start: 06-19-2024 End: 03-69-8252zgssejiqelJyqyhj Berry II Work Phone: [facility] Work Phone: Start: 06-14-2024 End: 56-22-6069Ulolgwtqo Result EncounterGeneric External Data ProviderNOMS External Department UnsolicitedStart: 06-14-2024 End: 94-28-4137Ucjjiagmn Result EncounterGeneric External Data ProviderNOMS External Department UnsolicitedStart: 06-14-2024 End: 71-83-0061Iioldkkky encounterYesica Bright RNTransplant CenterComment on above:Follow UpStart: 06-11-2024 End: 80-78-0675Klevtw Irina Garg MD Work Phone: Transplant CenterComment on above:Other ascites (Primary Dx)Start: 06-10-2024 End: 98-96-1383Vukwwa Irina Garg MD Work Phone: GastroenterologyComment on above:Pathological fracture, other site, initial encounter for fracture (Primary Dx)2nd Hepatitis B shotStart: 06-08-2024 End: 43-34-0394Sblhrlrpw Result EncounterGeneric External Data ProviderNOMS External Department UnsolicitedStart: 06-08-2024 End: 82-60-3364Ktfpxvxzw Result EncounterGeneric External Data ProviderNOMS External Department UnsolicitedStart: 06-08-2024 End: 18-95-9543iowkrtkyjsHZBYTM B BERRY IIFacility:[facility] Start: 06-08-2024 End: 32-28-7971Xdhkprlief hospital visit by physicianMri 7 Radio Main Q (I-Stat/1.5t/3t) Work Phone: MRI QComment on above:Low back pain, unspecified back pain laterality, unspecified chronicity, unspecified whether sciatica present [M54.50]Start: 06-07-2024 End: 36-34-1789Hpodczsce Result EncounterGeneric External Data ProviderNOMS External Department UnsolicitedStart: 06-07-2024 End: 93-44-5455Qoustlcdr Result EncounterGeneric External Data ProviderNOMS External Department UnsolicitedStart: 06-06-2024 End: 93-24-1041Jtiipuhgk encounterYesica Bright RNTransplant CenterComment on above:CARDIAC SUBCOMMITTEE MTGStart: 06-04-2024 End: 08-63-6352Olqqgkplu Result EncounterGeneric External Data ProviderNOMS External Department UnsolicitedStart: 06-04-2024 End: 57-89-9177Rubeinqfk Result EncounterGeneric External Data ProviderNOMS External Department UnsolicitedStart: 06-04-2024 End: 96-37-3767dnvuxodcffTSLJCS B BERRY IIFacility:[facility] Start: 06-04-2024 End: 58-43-2091Xsamqsdleh hospital visit by Brett [facility] Simin Work Phone: RadiologyComment on above:Liver transplant candidate [Z76.82]Start: 06-03-2024 End: 75-46-5558Nziuoixku encounterYesica Bright RNTransplant CenterStart: 05-31-2024 End: 79-34-1683Kbisszcqv Result EncounterGeneric External Data ProviderNOMS External Department UnsolicitedStart: 05-31-2024 End: 67-32-6339Zapsqzytm Result EncounterGeneric External Data ProviderNOMS External Department UnsolicitedStart: 05-31-2024 End: 11-99-3179Zzjpmtxefx hospital visit by physicianHepatology Procedures Q3 GastroenterologyComment on above:Other ascites [R18.8]Start: 05-31-2024 End: 48-23-5484qnhklxkipkYbnt Taimeh MD Work Phone: Pulmonary MedicineComment on above:SpirometryPre-Op ExamStart: 05-31-2024 End: 22-98-1955Lfkdhss encounter procedurePulm Fct Lab J-1Pulmonary Medicine Start: 07-34-1621xayfvpfomwSGKKYP B BERRY IIFacility:[facility] Start: 05-30-2024 End: 77-91-2474Qmowrlqfmg hospital visit by physicianRaymond Penaloza MD Work Phone: AdmittingComment on above:Bronchiolar disease [J98.09] Start: 05-30-2024 End: 03-92-7059Kiknssbql encounterYesica Bright RNTransplant CenterComment on above:Follow UpEducation Of Patient/familyUnilateral inguinal hernia without obstruction or gangrene, recurrence not specified (Primary Dx)Start: 05-29-2024 End: 77-24-9603kiafbtfelcCflmyobss Girard MD Work Phone: Pulmonary MedicineComment on above:TestsStart: 05-24-2024 End: 96-91-9908Pyicuz Irina Garg MD Work Phone: GastroenterologyComment on above:Other ascites (Primary Dx)Start: 05-23-2024 End: 69-49-3056Szctllo encounter procedurePulm Fct Lab Main 8Pulmonary Medicine Comment on above:Pleural effusion associated with hepatic disorder; Shortness of breath; Lesion of liver greater than 1 cm in diameter; Alcoholic cirrhosis of liver with ascites (HCC); Liver transplant candidate; Metabolic dysfunction-associated steatotic liver disease (MASLD)Start: 05-23-2024 End: 63-37-5314Rdbdzvmkpv hospital visit by physicianXr Chest Main C56Knfemildg Comment on above:Dyspnea, unspecified type [R06.00]Start: 05-23-2024 End: 66-28-3375ieowkexvjgWhdx Fct Lab Main 8Pulmonary MedicineComment on above: SpirometryStart: 05-21-2024 End: 90-42-1823mfiridtzywHkkvbxBrendan Arora MD Work Phone: CardiologyComment on above:Blood workStart: 05-20-2024 End: 26-20-9403uvjqrwvtioUbaskjBrendan Arora MD Work Phone: CardiologyComment on above:Blood workStart: 05-20-2024 End: 33-48-7207Vsuhlccxx encounterYesica Bright RNTransplant CenterStart: 05-18-2024 End: 93-12-4826Ctqbbv Irina Garg MD Work Phone: GastroenterologyComment on above:Liver mass (Primary Dx); Low back pain, unspecified back pain laterality, unspecified chronicity, unspecified whether sciatica presentStart: 05-17-2024 End: 17-55-3793Cczjiiwus encounterYesica Bright RNTransplant CenterComment on above:Follow UpStart: 05-16-2024 End: 42-91-7437Cqsdni Jimmy Robledo MD Work Phone: NOMS CI FMStart: 05-16-2024 End: 40-23-6776Vitsro Jimmy Robledo MD Work Phone: NOMS CI FMStart: 05-16-2024 End: 85-42-6145fpomekrtqkANWFIP B BERRYNot AvailableStart: 05-14-2024 End: 25-54-6075Tnlwfx Irina Garg MD Work Phone: Transplant CenterComment on above:Cirrhosis of liver without ascites, unspecified hepatic cirrhosis type (HCC) (Primary Dx)Start: 05-10-2024 End: 88-01-7975Opkthcolk encounterSjigar Garg MD Work Phone: GastroenterologyComment on above:Results, LabResults Start: 05-09-2024 End: 23-36-7992Jpgehsqef Result EncounterGeneric External Data ProviderNOMS External Department UnsolicitedStart: 05-09-2024 End: 32-60-7885Ganspafju Result EncounterGeneric External Data ProviderNOMS External Department UnsolicitedStart: 05-07-2024 End: 46-44-4353Weyymarby encounterYesica Bright RNTransplant CenterComment on above:Follow UpStart: 05-06-2024 End: 05-94-7542Tjvifzcgj encounterYesica Bright RNTransplant CenterStart: 05-04-2024 End: 40-56-9294Mmfzuf Irina Garg MD Work Phone: Transplant CenterStart: 48-56-7374Hrhflisty for other preprocedural examinationCHRISTINE KOVALCleWilson Memorial HospitalStart: 05-02-2024 End: 44-41-1092Mnnqgll encounter statusBrisa Seals MD Work Phone: [facility]Ber[facility] Hospitaltart: 05-02-2024 End: 19-69-5316hrobeqylccAWCRPSPKY KOVALFacility:[facility]tart: 05-02-2024 End: 03-62-6321Cdtvyrm encounter procedureJade Arora MD Work Phone: CardiologyComment [...] evaluation for chronic liver diseaseStart: 05-01-2024 End: 22-67-8216vmfrcxkiswDBHMINNEAPOLIS VA HEALTH [facility] LOWFacility:[facility] Hospitaltart: 05-01-2024 End: 77-47-6840Qaxryxl encounter procedureAnesthesia [facility] Work Phone: Transplant CenterComment on above:Thrombocytopenia (HCC) (Primary Dx); Pleural effusion associated with hepatic disorder; Shortness of breath; Lesion of liver greater than 1 cm in diameter; Alcoholic cirrhosis of liver with ascites (HCC); Liver transplant candidate; Metabolic dysfunction-associated steatotic liver disease (MASLD)Other ascites (Primary Dx)Start: 05-01-2024 End: 79-13-5342Fnkjkshvlq hospital visit by physicianHepatology Procedures Q3 GastroenterologyComment on above:Pleural effusion associated with hepatic disorder [K76.9, J91.8]Start: 05-01-2024 End: 13-74-4322eetpyhtygnLEUBQL JUNNAFacility:[facility] Hospitaltart: 04-30-2024 End: 51-50-1505Urxdbk outpatient new 60 minutesChoon Wenceslao Weir MD [...] other malignant neoplasm of skinStart: 04-30-2024 End: 22-09-7274Sxnwjba encounter statusChovelia Weir MD Work Phone: [facility]tart: 04-30-2024 End: 28-84-2020I-mail encounter from Yuridiaen[facility]bTrans[facility] Start: 04-30-2024 End: 43-64-6248Ntlupypeb encounterNenita Readus HUCAdmittingComment on above: Appointment; (Thoracentesis)Patient EducationStart: 04-30-2024 End: 13-64-1672Vezpiaz encounter procedureTransplant PharmacistTransplant Center Comment on above:Encounter for medication review and counselingStart: 04-30-2024 End: 19-94-0430fdfvnuefleFuziundtCount includes the [facility] CenterComment on above:Pre liver CoordinatorStart: 04-29-2024 End: 10-74-4391Sajdneprku hospital visit by physicianCt 2 Main Qb (I-Stat) RadiologyComment on above:Lesion of liver greater than 1 cm in diameter [K76.9] Start: 04-29-2024 End: 06-46-1443Bdiqoazio therapyNatalie [address] Work Phone: Nutrition TherapyComment on above:Patient Education; AssessmentStart: 04-29-2024 End: 77-71-9653Plofeiy encounter procedurePulm Fct Lab Main 8Pulmonary Medicine Comment on above:Pleural effusion associated with hepatic disorder; Shortness of breath; Lesion of liver greater than 1 cm in diameter; Encounter for screening for malignant neoplasm of prostate; Alcoholic cirrhosis of liver with ascites (HCC); Liver transplant candidate; Metabolic dysfunction-associated steatotic liver disease (MASLD)Start: 04-29-2024 End: 07-91-8154nemtudredcQhrs Fct Lab Main 8Pulmonary MedicineComment on above: SpirometryStart: 04-25-2024 End: 34-97-4642xpncznvastJmdno Txp Coordinator Work Phone: Transplant CenterComment on above:Encounter for education (Primary Dx)Start: 04-25-2024 End: 13-62-0234Wwszbhchggza consultation with patientLiver Txp Coordinator Work Phone: Transplant CenterStart: 04-24-2024 End: 63-36-3953Nyvxazbue encounterLiver Txp Coordinator Work Phone: Transplant CenterComment on above:Reminder Call; Liver EvalStart: 04-23-2024 End: 99-44-0814Wumpeiwsx encounterVirginia Hickman RNTransplant CenterComment on above:Referral - Liver Txp (Intake)Start: 04-22-2024 End: 85-40-4646Blhyukimd encounterJillian Aguayo TechTransplant CenterComment on above:Follow UpStart: 04-03-2024 End: 20-89-7900Hovjzegtf Result EncounterGeneric External Data ProviderNOMS External Department UnsolicitedStart: 04-03-2024 End: 39-22-4875Cwbdppkxw Result EncounterGeneric External Data ProviderNOMS External Department UnsolicitedStart: 03-28-2024 End: 68-79-3115zqvtdiekokFfhxz Txp Coordinator Work Phone: Transplant CenterComment on above:Liver Transplant Start: 03-28-2024 End: 30-48-3215J-mail encounter from caregiverLiver Txp Coordinator Work Phone: Transplant CenterStart: 03-28-2024 End: 58-95-4588Oejuyunyw encounterLiver Txp Coordinator Work Phone: Transplant CenterComment on above:Referral - Liver Txp Start: 03-25-2024 End: 25-60-5996Yeemiwwgh encounterLiver Txp Coordinator Work Phone: Transplant CenterComment on above:Referral - Liver Txp Start: 03-12-2024 End: 54-46-9952Jubjjtwnt Result EncounterGeneric External Data ProviderNOMS External Department UnsolicitedStart: 03-12-2024 End: 84-61-8954Jnndkstxc Result EncounterGeneric External Data ProviderNOMS External Department UnsolicitedStart: 03-08-2024 End: 18-64-4436abajhyiqiaZAJKOhioHealth Southeastern Medical Centertart: 03-08-2024 End: 69-69-0323unygckemrhXANLOhioHealth Southeastern Medical Centertart: 20-56-0768Yyfwyzapab and management of inpatientABDALLAH [facility] Hospitaltart: 06-57-2788Dstvcaomwp and management of inpatientFADI [facility] Hospitaltart: 02-19-2024 End: 65-82-0880rocovsyjhvVDNBOhioHealth Southeastern Medical Centertart: 02-19-2024 End: 89-23-1491Uhxbpbsmfz and management of inpatientMUHAMMAD [facility] Centertart: 02-15-2024 End: 57-29-8096aigprxeuyeYHKJNNB [facility] Start: 02-12-2024 End: 05-41-5344Ogoulayon Result EncounterGeneric External Data ProviderNOMS External Department UnsolicitedStart: 02-12-2024 End: 09-10-0093Ubngaiuuy Result EncounterGeneric External Data ProviderNOMS External Department UnsolicitedStart: 01-25-2024 End: 34-46-8526Pdhksjswj Result EncounterGeneric External Data ProviderNOMS External Department UnsolicitedStart: 01-25-2024 End: 51-04-2005Fnfdgtjpl Result EncounterGeneric External Data ProviderNOMS External Department UnsolicitedStart: 01-24-2024 End: 44-65-7217Xhwkbzdhm Result EncounterGeneric External Data ProviderNOMS External Department UnsolicitedStart: 01-24-2024 End: 65-03-9197Ittaxdlqk Result EncounterGeneric External Data ProviderNOMS External Department UnsolicitedStart: 01-18-2024 End: 32-48-6276Plznhb lvMaryeze Aly Ward DO Work Phone: noms NB OPHTStart: 01-18-2024 End: 06-69-7186Iepdny Glennypatriciaeze Aly Ward DO Work Phone: noms NB OPHTStart: 01-18-2024 End: 55-15-4403mvzupuyqivABPKPVZU D ZAHLERNot AvailableStart: 01-05-2024 End: 32-72-1789Oiiigdyeg Result EncounterGeneric External Data ProviderNOMS External Department UnsolicitedStart: 01-05-2024 End: 51-41-1202Kujbamoyn Result EncounterGeneric External Data ProviderNOMS External Department UnsolicitedStart: 01-03-2024 End: 76-76-0478Itzjzwhza Result EncounterGeneric External Data ProviderNOMS External Department UnsolicitedStart: 01-03-2024 End: 48-72-6235Dehlwxznj Result EncounterGeneric External Data ProviderNOMS External Department UnsolicitedStart: 01-03-2024 End: 91-99-6715olltruotzaDC Daniel Berry Work Phone: [facility] Work Phone: Start: 01-03-2024 End: 05-64-6851Xtkdeasb ReferredJUDITH Robledo Work Phone: [facility]-LAB Path Spec [facility] HospStart: 42-08-1331duaqyfjdabIRJQThe [facility] Start: 12-27-2023 End: 48-02-6863whhmggtlllQWOXAultman Hospitaltart: 12-20-2023 End: 28-89-3182Hgbugukxd Result EncounterGeneric External Data ProviderNOMS External Department UnsolicitedStart: 12-20-2023 End: 91-72-5676Hduebevbo Result EncounterGeneric External Data ProviderNOMS External Department UnsolicitedStart: 12-13-2023 End: 56-06-0483Knwkrfivc Result EncounterGeneric External Data ProviderNOMS External Department UnsolicitedStart: 12-13-2023 End: 95-72-4555Kdydzznqz Result EncounterGeneric External Data ProviderNOMS External Department UnsolicitedStart: 12-13-2023 End: 02-60-0823Ywnvxylwyrhb care manage srvc 7 day dischargeXuan MALDONADO Work Phone: NOTD FMComment on above:Cirrhosis of liver with ascites, unspecified hepatic cirrhosis type (CMS/HCC) (Primary Dx); Dizziness; Abdominal distension; QUESADA (dyspnea on exertion); Gastroesophageal reflux disease without esophagitis; Other ascites; Secondary esophageal varices without bleeding (CMS/HCC)Start: 12-13-2023 End: 51-98-3830yyctdkmediLIZQF M HEMMERNot AvailableStart: 12-12-2023 End: 95-24-7204zoiptfdgufRA Daniel Berry Work Phone: [facility] Work Phone: Start: 12-12-2023 End: 77-54-5186Ityqsixm ReferredII Sanjay Robledo Work Phone: [facility]-LAB Path Spec [place] HospStart: 12-08-2023 End: 56-19-9182Kwzaumofa Result EncounterGeneric External Data ProviderNOMS External Department UnsolicitedStart: 12-08-2023 End: 72-72-9444Foxyhjbnn Result EncounterGeneric External Data ProviderNOMS External Department UnsolicitedStart: 12-08-2023 End: 16-45-1545cuetpfsbobIV Daniel Berry Work Phone: [facility] Work Phone: Start: 12-08-2023 End: 52-35-0674Gpsrdlsr ReferredII Sanjay Robledo Work Phone: [facility]-LAB Path Spec [place] HospStart: 75-93-5057Uya-patient / Non-visitII Sanjay Robledo Work Phone: [facility] Work Phone: Start: 12-07-2023 End: 66-56-6549gtlnoelunlLX Sanjay Robledo Work Phone: [facility] Work Phone: Start: 12-07-2023 End: 03-98-6022Lxbhelvt ReferredJUDITH Robledo Work Phone: [facility]-LAB Path Spec [place] HospStart: 12-07-2023 End: 81-71-2389Egvpuuehc Result EncounterGeneric External Data ProviderNOMS External Department UnsolicitedStart: 12-07-2023 End: 16-47-6147Tjwkezvmx Result EncounterGeneric External Data ProviderNOMS External Department UnsolicitedStart: 11-27-2023 End: 88-38-3802teuxrczryzGWAJOhioHealth Southeastern Medical Centertart: 11-15-2023 End: 14-26-3415xvtqacjmoaZNYQNJ B BERRYNot AvailableStart: 11-14-2023 End: 06-59-8389xymgqoyviaJJIFULH RESEARCHKindred Hospital [facility] Start: 11-08-2023 End: 95-76-9000zqnycbmqkhCSIRBL LOWENot AvailableStart: 10-23-2023 End: 68-17-7512Scjtgziza Result EncounterGeneric External Data ProviderNOMS External Department UnsolicitedStart: 10-23-2023 End: 23-62-9991Lhdazyimw Result EncounterGeneric External Data ProviderNOMS External Department UnsolicitedStart: 35-39-5619kfcgzncnpfFRZLOhioHealth Southeastern Medical Centertart: 10-13-2023 End: 61-87-3525juvwyzvbzhXWDUBucyrus Community Hospitaltart: 10-09-2023 End: 47-13-6906opwquvlczyRHRRMD BERRYNot AvailableStart: 10-03-2023 End: 32-11-0858Vmeuhqmmn Result EncounterGeneric External Data ProviderNOMS External Department UnsolicitedStart: 10-03-2023 End: 60-39-1519Httwbtkjt Result EncounterGeneric External Data ProviderNOMS External Department UnsolicitedStart: 10-03-2023 End: 42-36-1365eriofcullqMU Sanjay Robledo Work Phone: [facility] Work Phone: Start: 10-03-2023 End: 60-48-1033Ajjyykri ReferredII Sanjay Robledo Work Phone: [facility]-LAB Path Spec [place] HospStart: 10-02-2023 End: 36-70-6083adbpyxwltfMCTXHELK DENBESTENNot AvailableStart: 09-25-2023 End: 37-37-0588hzdpgmfgagVEYDVKZK [facility] Daytontart: 09-15-2023 End: 18-20-2750ytfuheqqgkYEFTHW BENEDICTNot AvailableStart: 09-12-2023 End: 76-28-3748Yejvgtxcc Result EncounterSastrid Esparza MD Work Phone: noms External Department UnsolicitedStart: 09-12-2023 End: 39-06-4562Wdbduopkf Result EncounterSastrid Esparza MD Work Phone: noms External Department UnsolicitedStart: 09-05-2023 End: 83-95-1179slikbdkjriFKPURO BENEDICTNot AvailableStart: 08-30-2023 End: 73-49-6945qpxxtvzimfPFSSII BENEDICTNot AvailableStart: 07-12-2023 End: 85-43-8793jukcsevdkdKwnpnlj H ItzkowitzFacility:EU [place]uskyStart: 07-12-2023 End: 49-40-1955Lnsntbv encounter procedurePatricalbania ARRIAZA [facility] Josue Start: 07-05-2023 End: 85-49-1407noeknjmxfnLW Sanjay Robledo Work Phone: [facility] Work Phone: Start: 07-05-2023 End: 66-53-6966Brogsbi encounter procedureII Sanjay Robledo Work Phone: [facility] Work Phone: Start: 60-04-0412hhlbwubuzrToxlned Itzkowitz Facility: Delmynew bedfordyStart: 06-13-2023 End: 45-93-2352Rjqrbehpm to same day surgery centerII Sanjay Robledo Work Phone: [facility] CampusStart: 06-02-2023 End: 85-27-8024htjqtoahrrCF Sanjay Robledo Work Phone: [facility] Work Phone: Start: 06-02-2023 End: 28-24-9047Rpmlukt encounter procedureII Sanjay Robledo Work Phone: [facility]-Pre[facility]Surgical [facility] Work Phone: Start: 05-31-2023 End: 68-51-4121Exttsw outpatient visit 25 minutesFredric H Itzkowitz DO Work Phone: noms ST GENSComment on above:Fissure in ano (Primary Dx)Start: 05-23-2023 End: 85-06-7078Hrmiyoumz to same day surgery centerII Sanjay Robledo Work Phone: [facility] Work Phone: Start: 05-18-2023 End: 33-27-9030Qlpxvf outpatient new 45 minutesFredric H Itzkowitz DO Work Phone: noms ST GENSComment on above:Fissure in anoStart: 05-11-2023 End: 53-59-2707gmnoguvbagJmce Scovanner Other L[employer] Other Start: 61-03-9253Rehxyc outpatient visit 15 minutes Rick ScJanellG GastroenterologyStart: 04-28-2023 End: 32-33-5067ychigrsglfXijf Scovanner Other noBizimply Other Start: 56-38-9782Mbwekalym encounterRyan ScovannerFPG GastroenterologyStart: 04-27-2023 End: 02-58-0178zvzbrbtqbgDgqd Scovanner Other [employer] Other Start: 24-36-1986Dbojdqqse encounterRyan ScovannerFPG GastroenterologyStart: 04-26-2023 End: 50-65-0044Mayrqpx encounter procedureII Sanjay Robledo Work Phone: [facility] Work Phone: Start: 04-13-2023 End: 13-06-5433gpwlrgzwzaZhwy Scovanner Other [employer] Other Start: 29-20-4026Rkkbogmew encounterRyan ScovannerFPG GastroenterologyStart: 80-30-3119Uqgwah outpatient visit 25 minutesRyan ScovannerFPG GastroenterologyStart: 85-09-1926Pmvjxovzq encounterRyan Scovanner FPG GastroenterologyStart: 04-12-2023 End: 00-02-1316xzyihzqxovNT Sanjay Robledo Work Phone: [facility] Qriously Other Start: 04-12-2023 End: 25-36-8300Gdhjfxu encounter procedureII Sanjay Robledo Work Phone: [facility] Work Phone: Start: 04-12-2023 End: 09-95-2815Jmlwtpd encounter procedureII Sanjay Robledo Work Phone: [facility] Work Phone: Start: 04-03-2023 End: 28-33-6696gpnhkigvolQikf Scovanner Other [employer] Other Start: 85-43-2262Likzwonej encounterRyan ShannonFPG GastroenterologyStart: 11-18-2022 End: 43-05-3999yuqjpxbhkvDziy Scovanner Other [employer] Other Start: 97-52-4352Mvcwnxsky encounterRyan ScnayaFPG GastroenterologyStart: 11-15-2022 End: 44-09-9001pxekhbobrfRD Sanjay Robledo Work Phone: [facility] Work Phone: Start: 11-15-2022 End: 47-04-9192Iywiqmv encounter procedureII Sanjay Robledo Work Phone: [facility]Ultrasound Main [place] Work Phone: Start: 11-10-2022 End: 43-21-3981qxyctfcslmDdco Scovanner Other [employer] Other Start: 13-90-6789Jgfkrk outpatient visit 15 minutes Rick JimenezG GastroenterologyStart: 11-03-2022 End: 99-50-0841Trtxtxf encounter procedureII Sanjay Robledo Work Phone: [facility] Work Phone: Start: 10-26-2022 End: 25-47-2185cpdbppqzkvET Sanjay Robledo Work Phone: [facility] Work Phone: Start: 10-26-2022 End: 82-48-1585Bsuiyqxx ReferredII Sanjay Venkat Work Phone: [facility] Work Phone: Start: 10-26-2022 End: 44-51-0394Ssfnluz encounter procedureII Sanjay Venkat Work Phone: [facility] Work Phone: Start: 09-21-2022 End: 65-67-2724Kyclhuocj to same day surgery centerII Sanjay Robledo Work Phone: [facility] Work Phone: Start: 09-21-2022 End: 66-75-7974mnxfvgpgmzJA Sanjay Robledo Work Phone: [facility] Work Phone: Procedures DateProcedureProcedure DetailPerforming ClinicianStart: 83-86-9337UU LUMBAR SPINE WO IVCONGeneric External Data ProviderStart: 63-92-1169RD THORACIC SPINE WO IVCONGeneric External Data ProviderStart: 60-32-3068Tumcsaxh screenSANJAY ROBLEDO IIComment on above:Order Comment: Specimen Type: BLOOD SPECIMENOrdering Facility: [facility] Address: [id number] [place], [place] [address]Performed By: #### TSCR ####CC MAIN BLOOD BANKCLIA [id number] [address] AMERICAStart: 55-62-4863VTU CBC W AUTO DIFF BLDGeneric External Data Provider Start: 77-23-4537DMI NT-PROBNP SERPL-MCNCGeneric External Data ProviderStart: 11-46-4197NJC COMP METAB 2000 PNL SERPLGeneric External Data ProviderStart: 60-44-0019FIC CRP SERPL-MCNCGeneric External Data ProviderStart: 80-09-4526JZY MAGNESIUM SERPL-MCNCGeneric External Data ProviderStart: 77-01-5707Blbtkghc screenSANJAY ROBLEDO IIComment on above:Order Comment: Specimen Type: BLOOD SPECIMENOrdering Facility: [facility] Address:[address] [place], [place] [address]Performed By: #### TSCR ####CC MAIN BLOOD BANKCLIA [id number] [address] AMERICAStart: 96-13-0303Ogyjbwxp screenDAJACKIE ROBLEDO IIComment on above:Order Comment: Specimen Type: BLOOD SPECIMENOrdering Facility: [facility] Address:[address] [place], [place] [address]Performed By: #### TSCR ####CC MAIN BLOOD BANKCLIA [id number] [address] AMERICAStart: 18-74-9952LGZ BACTERIA UR CULTGeneric External Data ProviderStart: 77-68-2038TXY BACTERIA BLD CULTGeneric External Data ProviderStart: 83-95-6111Dpforqzb screenDANICIARA ROBLEDO IIComment on above: Order Comment: Specimen Type: BLOOD SPECIMENOrdering Facility: [facility] Address:[address] [place], [place] [address]Performed By: #### TSCR ####CC MAIN BLOOD BANKCLIA [id number] [address] AMERICAStart: 47-70-0009JwikbjixfslbbqtkRwafkzx External Data ProviderStart: 58-92-5086Ofi routine ecg w/least 12 lds w/i&rGeneric External Data ProviderStart: 00-62-5582NZE CYTOLOGY NON-GYNGeneric External Data ProviderStart: 97-93-7056RBC BACTERIA BLD CULTGeneric External Data Provider Start: 47-50-3916RUE BACTERIA FLD CULTGeneric External Data ProviderStart: 26-01-3241BZM BACTERIA SPEC RESP CULTGeneric External Data ProviderStart: 12-16-2024 End: 46-40-5114UAU BACTERIA BLD CULTGeneric External Data ProviderStart: 39-26-0335HXX RESP PATH 12B PNL SPEC JESSICA+PROBEGeneric External Data Provider Start: 76-47-7824LDV BACTERIA FLD CULTGeneric External Data ProviderStart: 69-80-6408Tqa routine ecg w/least 12 lds w/i&rGeneric External Data Provider Start: 80-45-4619Gua routine ecg w/least 12 lds w/i&rGeneric External Data ProviderStart: 88-24-5881Iho routine ecg w/least 12 lds w/i&rGeneric External Data ProviderStart: 11-40-6857Kel routine ecg w/least 12 lds w/i&rGeneric External Data ProviderStart: 83-46-9130KAT BACTERIA WND CULTGeneric External Data ProviderStart: 11-22-2024 End: 09-33-8841DXY BACTERIA BLD CULTGeneric External Data ProviderStart: 61-42-3893Dsc routine ecg w/least 12 lds w/i&rGeneric External Data Provider Start: 42-81-9655OEOWG CULTURE 1Generic External Data ProviderStart: 11-19-2024 URINE CULTURE - FRMCGeneric External Data ProviderStart: 61-95-3009Swpze 1996 panel - Serum or PlasmaLiver Coordinator Work Phone: Start: 18-63-3580Kddjj count complete auto&auto difrntl wbcCamila Meyers MERCERIZER MACHINE OPERATOR.QUALITY CONTROL ASSOCIATE Work Phone: Start: 84-52-7908VUL COMP METAB 2000 PNL SERPLGeneric External Data ProviderStart: 61-78-2976EJA MAGNESIUM SERPL-MCNCGeneric External Data ProviderStart: 90-88-1241XHA PHOSPHATE SERPL-MCNCGeneric External Data ProviderStart: 23-23-9740JUGD INTERP CBCDIF (LAB REFLEX ORDER-NO BILL)Camila Meyers MERCERIZER MACHINE OPERATOR.QUALITY CONTROL ASSOCIATE Work Phone: Start: 44-88-3686ONERT REVIEWCamila Meyers MERCERIZER MACHINE OPERATOR.QUALITY CONTROL ASSOCIATE Work Phone: Start: 91-36-6554Hxpba count complete auto&auto difrntl wbcSaman Anthony DO Work Phone: Start: 34-65-7408D-reactive proteinSaman [facility] DO Work Phone: Start: 55-65-9551VSO PHOSPHATE SERPL-MCNCGeneric External Data ProviderStart: 00-00-8319GMXHTlatycw External Data ProviderStart: 11-59-7056Ninl dx collection specimen brushing/washingNick Cameron PA-C Work Phone: Start: 95-97-4354Lgrzm count complete auto&auto difrntl wbcDavid Cruz DO Work Phone: Start: 37-42-3012E-reactive proteinSaman Anthony DO Work Phone: Start: 64-16-2547HFB NT-PROBNP SERPL-MCNCGeneric External Data ProviderStart: 90-45-1832Kaain cytomegalovirus quantificationSadenise Cruz DO Work Phone: Start: 72-92-2451Ofhqcmr serum plasma/whole blood Camila Meyers MERCERIZER MACHINE OPERATOR.QUALITY CONTROL ASSOCIATE Work Phone: Start: 68-71-3586SFX ALBUMIN SERPL-MCNCGeneric External Data ProviderStart: 31-95-7658BZL BAS METAB 2000 PNL SERPLGeneric External Data ProviderStart: 84-84-1386XSF MAGNESIUM SERPL-MCNCGeneric External Data ProviderStart: 89-36-2195SNT PHOSPHATE SERPL-MCNCGeneric External Data ProviderStart: 36-62-4333Asvqv count complete auto&auto difrntl wbcDavid Cruz DO Work Phone: Start: 49-38-2965N-reactive proteinSaman Anthony DO Work Phone: Start: 35-25-6036GEL PHOSPHATE SERPL-MCNCGeneric External Data ProviderStart: 18-06-3022Numax count complete auto&auto difrntl wbcDavid Cruz DO Work Phone: Start: 85-70-6650Y-reactive proteinSaman Anthony DO Work Phone: Start: 84-60-1034KVQ NT-PROBNP SERPL-MCNCGeneric External Data ProviderStart: 70-27-9660Krpve cytomegalovirus quantificationDavid Cruz DO Work Phone: Start: 67-48-3814Znspy count complete auto&auto difrntl wbcZachary Meyers MERCERIZER MACHINE OPERATOR.QUALITY CONTROL ASSOCIATE Work Phone: Start: 07-20-0813XFT MAGNESIUM SERPL-MCNCGeneric External Data ProviderStart: 92-76-5111LRR RENAL FUNC 1999 PNL SERPLGeneric External Data ProviderStart: 31-50-0893Cylvz count complete auto&auto difrntl wbcZachary Luigi MERCERIZER MACHINE OPERATOR.QUALITY CONTROL ASSOCIATE Work Phone: Start: 52-04-3810GCA MAGNESIUM SERPL-MCNCGeneric External Data ProviderStart: 71-86-5800IUP NT-PROBNP SERPL-MCNCGeneric External Data ProviderStart: 28-64-4377TVY RENAL FUNC 1999 PNL SERPLGeneric External Data ProviderStart: 00-30-7027Ymrzi count complete auto&auto difrntl wbcDavid Hughesaffari DO Work Phone: Start: 59-60-0394J-reactive proteinSaman Anthony DO Work Phone: Start: 68-88-0272LYA PHOSPHATE SERPL-MCNCGeneric External Data ProviderStart: 80-07-0368XPP BACTERIA SPEC ANAEROBE CULTGeneric External Data ProviderStart: 80-90-9683FdleaqcjwxcmwuwwVatpwbc External Data ProviderStart: 08-68-0901Owv routine ecg w/least 12 lds w/i&rGeneric External Data ProviderStart: 12-52-3929KSJ CYTOLOGY NON-GYNGeneric External Data Provider Start: 90-64-7943Mdy routine ecg w/least 12 lds w/i&rGeneric External Data ProviderStart: 32-89-1503QIP O+P SPEC MICROGeneric External Data ProviderStart: 81-00-7574YFD RESP PATH 12B PNL SPEC JESSICA+PROBEGeneric External Data Provider Start: 96-71-5682YQ ABD/PEL WO IVCONGeneric External Data ProviderStart: 95-33-3497EG BRAIN WO IVCONGeneric External Data ProviderStart: 49-80-8219Ju head/brain w/o contrast materialSaman Anthony DO Work Phone: Start: 30-80-7781Mmqsw count complete auto&auto difrntl wbcSadenise Cruz DO Work Phone: Start: 56-40-6631G-reactive proteinSaman Anthony DO Work Phone: Start: 31-38-3821IVZ CBC W AUTO DIFF BLDGeneric External Data ProviderStart: 54-01-7148Ncwax cytomegalovirus quantificationSadenise Cruz DO Work Phone: Start: 70-82-4823Gawje count complete auto&auto difrntl wbcSuze Jenkins MD Work Phone: Start: 18-96-8310LWT CBC W AUTO DIFF BLDGeneric External Data ProviderStart: 36-43-3665Qjglb count complete auto&auto difrntl wbcZajosé miguel Meyers APRN.QUALITY CONTROL ASSOCIATE Work Phone: Start: 07-27-1244LNG CBC W AUTO DIFF BLDGeneric External Data ProviderStart: 07-21-6032Jkcsb count complete auto&auto difrntl wbcDavid Cruz DO Work Phone: Start: 89-83-1081A-reactive proteinSaman Anthony DO Work Phone: Start: 97-17-5238KIW CBC W AUTO DIFF BLDGeneric External Data ProviderStart: 68-62-2787Racun count complete Moody Trinidad MD Work Phone: Start: 93-54-9061NAN CBC PNL BLD AUTOGeneric External Data ProviderStart: 60-09-0130Iaqd screen quantitative tacrolimusDavid Cruz DO Work Phone: Start: 86-52-5961Efbuh count complete auto&auto difrntl wbcSuze Jenkins MD Work Phone: Start: 79-58-6592I-reactive proteinSuze Jenkins MD Work Phone: Start: 24-09-2171WJR CBC W AUTO DIFF BLDGeneric External Data ProviderStart: 75-84-3110Ideiv count complete auto&auto difrntl wbcDavid Cruz DO Work Phone: Start: 64-14-2762P-reactive proteinSaman Anthony DO Work Phone: Start: 33-79-0179SKN CBC W AUTO DIFF BLDGeneric External Data ProviderStart: 51-81-2704Rdypx cytomegalovirus quantificationDavid Cruz DO Work Phone: Start: 09-29-2024 End: 62-82-2426Ekc routine ecg w/least 12 lds i&r onlyDavid Cruz DO Work Phone: Start: 43-03-6114MKN 12-LEADGeneric External Data ProviderStart: 25-12-9318SHD14Zmanppj External Data ProviderStart: 44-55-7155Fgg routine ecg w/least 12 lds w/i&rGeneric External Data ProviderStart: 09-24-2024 CCF BACTERIA WND CULTGeneric External Data ProviderStart: 09-10-2024 End: 12-18-2024H/O: liver recipientS/P liver transplantMary Toney RNStart: 09-09-2024H/O: liver recipientStatus post liver transplantMamasha Vázquez RNStart: 10-05-5120MXH BACTERIA FLD CULTGeneric External Data ProviderStart: 09-08-2024 CCF FLUABV+SARS-COV-2+RSV PNL RESP JESSICA+PROBEGeneric External Data ProviderStart: 91-96-9676Cpy routine ecg w/least 12 lds w/i&rGeneric External Data Provider Start: 36-47-1989NNO BACTERIA SPEC ANAEROBE CULTGeneric External Data Provider Start: 51-12-1617HKLG PATH BX REPORTGeneric External Data ProviderStart: 84-52-9454Gbb routine ecg w/least 12 lds w/i&rGeneric External Data Provider Start: 71-54-0031YOFZ PATH BX REPORTGeneric External Data ProviderStart: 59-46-7086FgtxwwseqsuAkatwfam Bright RNStart: 02-41-8667Znf routine ecg w/least 12 lds w/i&rGeneric External Data ProviderStart: 41-83-4074NR PARACENTESIS (POC) DDI USE ONLYMira Black PA-C Work Phone: Start: 08-23-2024 End: 38-01-2943YLO BACTERIA BLD CULTGeneric External Data ProviderStart: 62-34-9021ZP BIOPSY VERTEBRA OR FEMURGeneric External Data ProviderStart: 49-41-4852PMW CMP (CMP) (FOR REMOTE [facility] USE)Generic External Data ProviderStart: 43-89-7651FZL CMP (CMP) (FOR REMOTE [facility] USE)Generic External Data Provider Start: 42-04-5467FCG CMP (CMP) (FOR REMOTE [facility] USE)Generic External Data ProviderStart: 90-43-1389Exghg paracentesis dx/ther w/imaging guidanceDmitri Garg MD Work Phone: Start: 44-27-9688FC MANUAL DIFFLetitia E Mountain MERCERIZER MACHINE OPERATOR.QUALITY CONTROL ASSOCIATE Work Phone: start: 99-15-5926Tobb count misc body fluids w/differential countLetitia E Alex MERCERIZER MACHINE OPERATOR.QUALITY CONTROL ASSOCIATE Work Phone: start: 58-42-5243KD PARACENTESIS (POC) DDI USE ONLY Elsy E Alex MERCERIZER MACHINE OPERATOR.QUALITY CONTROL ASSOCIATE Work Phone: start: 03-30-8796Wqwuabsimznftxm guided puncture and aspiration of abdomenDaniel Robledo II Work Phone: Start: 91-78-5487BRC CBC WITH AUTO DIFFGeneric External Data ProviderStart: 88-71-4834AAZ CERVICAL SPINE WO/W IVCONGeneric External Data ProviderStart: 30-86-2077PGE LUMBAR SPINE WO/W IVCONGeneric External Data ProviderStart: 99-72-1434Dhg spinal canal thoracic w/o & w/contr matrlShitess Garg MD Work Phone: Start: 13-20-0504VOA THORACIC SPINE WO/W IVCONGeneric External Data ProviderStart: 96-43-4306XHK CMP (CMP) (FOR REMOTE FH USE)Generic External Data ProviderStart: 81-97-7620Vt pelvic nonobstetric image dcmtn limited/f/uSjigar Garg MD Work Phone: Start: 95-85-5752OH PELVIS LTDGeneric External Data ProviderStart: 92-52-4339Xpeun paracentesis dx/ther w/imaging guidanceDmitri Garg MD Work Phone: [phone]: 47-43-8478JI MANUAL DIFFJessica Zangmeister MERCERIZER MACHINE OPERATOR.QUALITY CONTROL ASSOCIATE Work Phone: [phone]: 53-34-6092NVB BODY FLUID CELL COUNTGeneric External Data ProviderStart: 72-13-4208Jidi count misc body fluids w/differential countJessica Zangmeister MERCERIZER MACHINE OPERATOR.QUALITY CONTROL ASSOCIATE Work Phone: Start: 12-39-7102NE PARACENTESIS (POC) DDI USE ONLY Kathy Zangmedianna MERCERIZER MACHINE OPERATOR.QUALITY CONTROL ASSOCIATE Work Phone: [phone]: 86-46-2043Qg diffusing capacityChrismelissa Bull MD Work Phone: Start: 05-30-2024 End: 27-57-4848Auqhjvzkhulbz needle/cath pleura w/imagingThomas Shannon Penaloza MD Work Phone: Start: 97-88-4430Jsnelkflf rspse spmtry pre&post- brncdilat admnChrjavier Bull MD Work Phone: Start: 96-79-8721Phafoejzft exam chest 2 views Brisa Bull MD Work Phone: Start: 94-40-5788ZHF CBC WITH AUTO DIFFGeneric External Data ProviderStart: 10-22-0780Nwhdg paracentesis dx/ther w/imaging guidanceLee Ann Art MD Work Phone: Start: 43-14-9283Lgxewhz serum plasma/whole bloodDonerin Benoit MERCERIZER MACHINE OPERATOR.QUALITY CONTROL ASSOCIATE Work Phone: Start: 79-43-3056BH MANUAL DIFFDonna Cy MERCERIZER MACHINE OPERATOR.QUALITY CONTROL ASSOCIATE Work Phone: Start: 36-31-1669Pzar count misc body fluids w/differential countDonna Cy MERCERIZER MACHINE OPERATOR.QUALITY CONTROL ASSOCIATE Work Phone: Start: 77-26-6584Ryr bact xcpt urine blood/stool aerobic isolRosalinda Benoit MERCERIZER MACHINE OPERATOR.QUALITY CONTROL ASSOCIATE Work Phone: Start: 29-26-1861AK PARACENTESIS (POC) DDI USE ONLY Rosalindaerin Benoit MERCERIZER MACHINE OPERATOR.QUALITY CONTROL ASSOCIATE Work Phone: Start: 09-97-7884Ds abdomen w/contrast materialSjigar Garg MD Work Phone: Start: 12-92-8451Tfglka w/vc expiratory edy w/wo mxml vol vntjSjigar Garg MD Work Phone: Start: 83-62-7215Tpldf 1995 panel - Serum or Plasma Pulm 8Start: 52-28-2723DS PARACENTESIS ABD W/IMAGEGeneric External Data Provider Start: 65-38-6065FH PARACENTESIS ABD W/IMAGEGeneric External Data ProviderStart: 11-78-8909Fvljs 1995 panel - Serum or PlasmaLiver Coordinator Work Phone: Start: 30-04-7774FOJ CBC WITH AUTO DIFFGeneric External Data ProviderStart: 25-73-4871Nmr abdomen w/o & w/contrast material Generic External Data ProviderStart: 43-72-5868DO PARACENTESIS ABD W/IMAGE Generic External Data ProviderStart: 37-61-5021Dff bmtry prtl coher intrfrmtry io lens pwr calIra Mitchell Ward DO Work Phone: Start: 01-18-2024 End: 28-61-8384Dpkon medical xm&eval compre new pt 1/> vstAge-related nuclear cataract of both eyesIra Mitchell Desiadriana DO Work Phone: comment on above:Age-related nuclear cataract of both eyes (Primary Dx)Start: 22-93-2720ZP ABDOMEN 1VGeneric External Data Provider Start: 50-41-6389YT PARACENTESIS ABD W/IMAGEGeneric External Data ProviderStart: 27-55-8254QNAF AFP TUMOR MARKERGeneric External Data ProviderStart: 01-03-2024 SRMCOH PROTHROMBIN TIME INR W/O COUMGeneric External Data ProviderStart: 72-62-4871OH ECHO DOPPLER Cailin MALDONADO Work Phone: Start: 13-04-0474YNF CBC WITH AUTO DIFFGeneric External Data ProviderStart: 75-63-8041IQSY AFP TUMOR MARKERGeneric External Data ProviderStart: 67-05-4448KOK CMP (CMP) (FOR REMOTE [facility] USE)Generic External Data ProviderStart: 18-42-8592VNKD FLUID CULTURE, STERILEGeneric External Data ProviderStart: 95-55-0411VKPE STAIN RESULTGeneric External Data ProviderStart: 40-47-7972VD PARACENTESIS ABD W/IMAGEGeneric External Data ProviderStart: 58-27-8204KW PARACENTESIS ABD W/IMAGEGeneric External Data ProviderStart: 25-54-6480HZX BASIC METABOLIC PANELGeneric External Data ProviderStart: 13-33-0749RDR CBC WITH AUTO DIFFGeneric External Data ProviderStart: 10-23-2023 SRMCOH PROTHROMBIN TIME INR W/O COUMGeneric External Data ProviderStart: 19-58-5110SX PARACENTESIS ABD W/IMAGEGeneric External Data ProviderStart: 60-28-1574ZGJ, SUBCLASSES(1-4)Generic External Data ProviderStart: 94-61-7754ZYP MISCELLANEOUS TESTGeneric External Data ProviderStart: 35-23-1248JCBC CT, SEROUS FLUIDGeneric External Data ProviderStart: 30-35-6822KEPCQAU, BODY FLUID Generic External Data ProviderStart: 80-85-3198CO HEAD/BRAIN WO Dimitrios Esparza MD Work Phone: Start: 60-56-2332Rdizleyf of lesion of anusII Sanjay Robledo Work Phone: Start: 07-25-3222Ybjhblzsnq manometryII Sanjay Robledo Work Phone: Start: 50-15-6481Mrdbrlsnhxuh gastric emptying studyII Sanjay Robledo Work Phone: Start: 94-62-4615Hnufqzvxktcgbbn of liverII Sanjay Robledo Work Phone: Start: 90-15-1909Vrqpxgmeug elastography of liverII Sanjay Robledo Work Phone: Start: 70-74-0797XcdogihwuhjpazwbzmqoskubzaEH Sanjay Robledo Work Phone: Start: 94-92-1088FvkfnrfehtgFmhxmol Itzkowitz DO Work Phone: Start: 86-46-2622NmuppwvtwrrScghjjy ProviderStart: 67-01-2153PtbzmsvzfmwMbdzt Coordinator Work Phone: Plan of Treatment DateCare ActivityDetailAuthorStart: 45-28-0442Lhcuonrqa for malignant neoplasm of colonNOMS HealthcareStart: 96-70-1144Fzirceesg for malignant neoplasm of colonNOMS HealthcareStart: 86-82-5917Bvfny microalbumin profileDTaP,Tdap,Td Vaccine (2 - Td or Tdap)[facility]: 34-73-3059Hijbm panelLipid ScreeningOhioHealth Doctors Hospitaltart: 59-91-1758Yauhshuiu for malignant neoplasm of colonSigmoidoscopyNOMS HealthcareStart: 66-89-9336Xndanikdf for malignant neoplasm of colonOhioHealth Doctors Hospitaltart: 36-92-4812Qhzbwxwte for malignant neoplasm of colonNOMS HealthcareStart: 94-87-9804Uavrg panelLipid Screening [facility]: 24-38-0566Lucdp panelLipid ScreeningHolmes County [facility] Start: 07-93-5733VPL Vaccine (1 - 1-dose 75+ series)RSV Vaccine (1 - 1-dose 75+ series)[facility]: 07-65-1466Qchohwxv ScreeningDiabetes Screening [facility]: 45-12-5161Rfsbyori ScreeningDiabetes ScreeningOhioHealth Doctors Hospitaltart: 80-56-3709Dxuuwkaw ScreeningDiabetes ScreeningHolmes [facility] Start: 23-91-3403Bswpclvu ScreeningDiabetes ScreeningOhioHealth Doctors Hospitaltart: 11-02-2789Kzthjcuz ScreeningDiabetes ScreeningOhioHealth Doctors Hospitaltart: 11-16-2027 Diabetes ScreeningDiabetes ScreeningOhioHealth Doctors Hospitaltart: 04-91-2399Zmvawuax ScreeningDiabetes ScreeningOhioHealth Doctors Hospitaltart: 92-25-3464Cunzbiwp Screening Diabetes ScreeningOhioHealth Doctors Hospitaltart: 04-51-5531Dvydlkdl ScreeningDiabetes ScreeningOhioHealth Doctors Hospitaltart: 08-58-8579Hjpvrlni ScreeningDiabetes Screening [facility]: 50-88-4565Pcdshgvp ScreeningDiabetes ScreeningOhioHealth Doctors Hospitaltart: 32-47-8038Retobrxg ScreeningDiabetes ScreeningHolmes [facility] Start: 43-92-6519Ptgipgpc ScreeningDiabetes ScreeningOhioHealth Doctors Hospitaltart: 82-07-9860Gsamywke ScreeningDiabetes ScreeningOhioHealth Doctors Hospitaltart: 10-10-2027 Diabetes ScreeningDiabetes ScreeningOhioHealth Doctors Hospitaltart: 06-85-7346Lhymkcsy ScreeningDiabetes ScreeningOhioHealth Doctors Hospitaltart: 63-24-9352Zxnvdnpx Screening Diabetes ScreeningOhioHealth Doctors Hospitaltart: 11-21-7359Xxxsopdp ScreeningDiabetes ScreeningOhioHealth Doctors Hospitaltart: 60-36-0860Gygccmic ScreeningDiabetes Screening [facility]: 53-12-7525Hqgkkvmc ScreeningDiabetes ScreeningOhioHealth Doctors Hospitaltart: 34-17-0457Ivdxsjwv ScreeningDiabetes ScreeningHolmes [facility] Start: 60-35-9070Hfarggfh ScreeningDiabetes ScreeningOhioHealth Doctors Hospitaltart: 46-14-3176Nhmorxbo ScreeningDiabetes ScreeningOhioHealth Doctors Hospitaltart: 08-28-2027 Diabetes ScreeningDiabetes ScreeningOhioHealth Doctors Hospitaltart: 32-41-1821Pcfozfve ScreeningDiabetes ScreeningOhioHealth Doctors Hospitaltart: 61-90-2162Huziiklg Screening Diabetes ScreeningOhioHealth Doctors Hospitaltart: 18-94-9094Mbmkzxud ScreeningDiabetes ScreeningOhioHealth Doctors Hospitaltart: 12-99-4166Tajogjxp ScreeningDiabetes Screening [facility]: 89-67-1155Daqpnxal ScreeningDiabetes ScreeningOhioHealth Doctors Hospitaltart: 55-31-1950Kxhpoopi ScreeningDiabetes ScreeningHolmes [facility] Start: 13-52-0710Uvdadhya screeningDiabetes: Retinopathy ScreeningGeneral [facility] Community HospitalStart: 73-24-5386Unayrlxkkk measurementSerum CreatinineOrlando ClinicStart: 99-50-3627Sjgszfbyem measurementSerum CreatinineHolmes County [facility] Start: 89-92-0010Sbiaztzsnv measurementSerum CreatinineOhioHealth Doctors Hospitaltart: 48-16-9374Dkvvllat blood countHemoglobin/HematocritOrlando ClinicStart: 51-05-4373Ifvngeixnm measurementSerum CreatinineOhioHealth Doctors Hospitaltart: 39-74-3137Nxuetyzi blood countHemoglobin/HematocritOrlando ClinicStart: 20-68-6141Ajqvvjrwvf measurementSerum CreatinineOhioHealth Doctors Hospitaltart: 21-90-3823Hfhengajsq measurementSerum CreatinineOhioHealth Doctors Hospitaltart: 40-84-3427Elyredxn blood countHemoglobin/HematocritOhioHealth Doctors Hospitaltart: 61-19-8939Mptotbhwkk measurementSerum CreatinineOhioHealth Doctors Hospitaltart: 83-42-6620Yrhanjcq blood countHemoglobin/HematocritOhioHealth Doctors Hospitaltart: 00-41-3099Cysdutdlij measurementSerum CreatinineOhioHealth Doctors Hospitaltart: 46-47-8453Tfitknau blood countHemoglobin/HematocritOrlando ClinicStart: 59-95-6647Ycverjrbue measurementSerum CreatinineOhioHealth Doctors Hospitaltart: 34-52-3929Yaychwfvdw measurementSerum CreatinineOhioHealth Doctors Hospitaltart: 46-43-7642Dlplpuhceb measurementSerum CreatinineOhioHealth Doctors Hospitaltart: 72-78-3936Nzsmzewyth measurementSerum CreatinineOhioHealth Doctors Hospitaltart: 43-78-7646Jlouytmgzc measurementSerum CreatinineOhioHealth Doctors Hospitaltart: 70-81-1133Bebeeuomnl measurementSerum CreatinineOhioHealth Doctors Hospitaltart: 74-56-8536Qxkgiinxrp measurementSerum CreatinineOhioHealth Doctors Hospitaltart: 22-51-2037Kwyybmbz blood countHemoglobin/HematocritOrlando ClinicStart: 75-32-5437Jagbknutqn measurementSerum CreatinineCleSumma Healthtart: 29-04-1974Vlgbithe blood countHemoglobin/HematocritOhioHealth Doctors Hospitaltart: 67-61-4485Czmljyzrfv measurementSerum CreatinineOhioHealth Doctors Hospitaltart: 18-70-0929Fyhvqtwsms measurementSerum CreatinineOhioHealth Doctors Hospitaltart: 83-21-3121Ztzehmjhsg measurementSerum CreatinineOhioHealth Doctors Hospitaltart: 92-22-1082Qndceaka blood countHemoglobin/HematocritOhioHealth Doctors Hospitaltart: 52-40-3370Rabpcugdfv measurementSerum CreatinineOhioHealth Doctors Hospitaltart: 61-20-5853Hfyioesw blood countHemoglobin/HematocritOhioHealth Doctors Hospitaltart: 41-28-1833Yqojdohwea measurementSerum CreatinineOhioHealth Doctors Hospitaltart: 04-60-0662Hkahdpis blood countHemoglobin/HematocritOhioHealth Doctors Hospitaltart: 39-50-1876Bfkitfzgvm measurementSerum CreatinineOhioHealth Doctors Hospitaltart: 41-45-3433Irgcuwakzl measurementSerum CreatinineOhioHealth Doctors Hospitaltart: 54-16-8693Avkomcrirx measurementSerum CreatinineOhioHealth Doctors Hospitaltart: 84-66-5612Vrofztawnl measurementSerum CreatinineOhioHealth Doctors Hospitaltart: 64-96-6845Mmnawqpa blood countHemoglobin/HematocritOhioHealth Doctors Hospitaltart: 85-68-1071Rbvntxtocu measurementSerum [facility]zer Hospitaltart: 99-17-1091FH Controlled (<130/80)BP Controlled (<130/80)[facility]: 85-77-8399NT Controlled (<130/80)BP Controlled (<130/80)[facility] Hospitalrt: 32-91-6710PT Controlled (<130/80)BP Controlled (<130/80)[facility]: 72-73-4890ZA Controlled (<130/80)BP Controlled (<130/80)[facility]: 77-21-6366ZN Controlled (<130/80)BP Controlled (<130/80)[facility]: 68-52-4177ER Controlled (<130/80)BP Controlled (<130/80)[facility]: 55-79-2396Syfxmcwnm A Vaccine (2 of 2 - Risk 2-dose series)Hepatitis A Vaccine (2 of 2 - Risk 2-dose series)[facility]: 52-74-0638Doasiatge A Vaccines (2 of 2 - Risk 2-dose series)Hepatitis A Vaccines (2 of 2 - Risk 2-dose series)[facility] HospitalStart: 02-10-2025 End: 15-73-3966Pgukefa encounter /27/2025 11:00 AM EDT Appointment Gastroenterology [address] [address] Jane Correia MD [address] [place] [address] Schedule in about 3 months to remove biliary stent GastroenterologyComment on above:Schedule in about 3 months to remove biliary stentStart: 02-03-2025 End: 46-15-5851jjaskhtmvu56/20/2025 9:00 AM EDT [facility] Neurology [address] [place] [address] Devyn Roach MD [address] [place] [address] Vertigo [R42] NeurologyComment on above:Vertigo [R42]Start: 04-57-4898Kemsxfvjf A Vaccine (3 of 3 - Hep A Twinrix risk 3-dose series)Hepatitis A Vaccine (3 of 3 - Hep A Twinrix risk 3-dose series)[facility]: 01-08-2025 End: 39-84-3875Wurvemo encounter spiqssqfv13/24/2025 8:00 AM EDT Office Visit Gastroenterology [address] [place] [id number] [place] [address] [place] [address] hospital discharge follow upGastroenterologyComment on above:hospital discharge follow upStart: 83-02-6015Qrnkr screening for proteinDiabetes: Urine Protein ScreeningNOSD HealthcareStart: 85-34-1219Iiganwosb vaccinationInfluenza Vaccine (#1)[facility] HealthcareStart: 12-02-2024 End: 79-05-7675Jqxfhx Only12/02/2024 Orders Only Transplant Center [address] [address] Carina Ziegler, RN [facility] [address] [place] [address] Disorder of liver; Liver replaced by transplant (HCC)Transplant CenterComment on above:Disorder of liver; Liver replaced by transplant (HCC)Start: 13-25-4755Sgpofbmjcs hospital visit by kykyondte98/07/2025 5:40 PM EDT Hospital Encounter MRI Q [address] [address] Compression fracture of cervical spine, non- traumatic, with delayed healing, subsequent encounter [M48.52XG]MRI QComment on above:Compression fracture of cervical spine, non-traumatic, with delayed healing, subsequent encounter [M48.52XG]Start: 11-21-2024 End: 66-12-7837Clwauco encounter procedureTransplant CenterComment on above:OK PER MOLLYCompression fracture of cervical spine, non-traumatic, with delayed healing, subsequent encounter [M48.52XG]Start: 11-20-2024 End: 01-54-8339HP Cervical spine WO and W contrast IVMRI CERVICAL SPINE WO/W IVCON Radiology ADRIANNE Compression fracture of cervical spine, non-traumatic,with delayed healing, subsequent encounter Expected: 11/20/2024, Expires: 12/12/2025 [facility] Work Phone: Comment on above:Expected: 11/20/2024, Expires: 12/12/2025Start: 11-20-2024 End: 91-73-1357YT Lumbar spine WO and W contrast IVMRI LUMBAR SPINE WO/W IVCON Radiology Routine Compression fracture of cervical spine, non-traumatic, with delayed healing, subsequent encounter Expected: 11/20/2024, Expires: 12/12/2025 [facility] HospitalComment on above:Expected: 11/20/2024, Expires: 12/12/2025Start: 11-20-2024 End: 79-17-3851DS Thoracic spine WO and W contrast IVMRI THORACIC SPINE WO/W IVCON Radiology ADRIANNE Compression fracture of cervical spine, non-traumatic,with delayed healing, subsequent encounter Expected: 11/20/2024, Expires: 12/12/2025 [facility] HospitalComment on above:Expected: 11/20/2024, Expires: 12/12/2025Start: 02-41-8166LqpxqSCCI Hospital Limatart: 11-19-2024 Bacteria identified in Urine by CultureUrine CultureProMedica Fostoria Community Hospitaltart: 11-14-2024 End: 05-25-8766mkjpxxbpdl60/31/2025 2:30 PM EDT [facility] Infectious Disease [address] [place] [id number] Jennie Nicholson MD [address] [place] [address] VRE infected bile leakInfectious DiseaseComment on above:VRE infected bile leak Start: 11-14-2024 End: 40-82-8082Smjhcij encounter oxoxvdxcc24/31/2025 2:30 PM EDT Office Visit Infectious Disease [address] [id number] Jennie Nicholson MD [address] [place] [address] VRE infected bile leakInfectious DiseaseComment on above:VRE infected bile leakStart: 11-13-2024 End: 10-87-2594Nhwuxfc encounter procedureGastroenterologyComment on above: 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, 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]Start: 10-31-2024 End: 47-16-4348Hvyfskm OnlyCardiologyComment on above:Pleural effusion associated with hepatic disorder [K76.9, J91.8]Start: 61-45-5902Rhykdcazp A Vaccine (2 of 2 - Risk 2-dose series)Hepatitis A Vaccine (2 of 2 - Risk 2-dose series)[facility]art: 51-86-4955Nirgj screening for proteinDiabetes: Urine Protein ScreeningGeneral Leonard Wood Army Community HospitalStart: 09-15-2024 End: 35-99-6647QR Cervical spine WO and W contrast IVMRI CERVICAL SPINE WO/W IVCON Radiology Routine Abnormal bone scan of thoracic spine Expected: 09/15, Expires: 09/21/2025[facility] Work Phone: Comment on above:Expected: 09/15/2024, Expires: 09/21/2025Start: 09-15-2024 End: 74-04-2169FT Lumbar spine WO and W contrast IVMRI LUMBAR SPINE WO/W IVCON Radiology Routine Abnormal bone scan of thoracic spine Expected: 09/15/2024, Expires: 09/21/2025[facility] ClinicComment on above:Expected: 09/15/2024, Expires: 09/21/2025Start: 09-15-2024 End: 11-74-3151TV Thoracic spine WO and W contrast IVMRI THORACIC SPINE WO/W IVCON Radiology Routine Abnormal bone scan of thoracic spine Expected: 09/15, Expires: 09/21/2025leveland ClinicComment on above:Expected: 09/15/2024, Expires: 09/21/2025Start: 09-05-2024 End: 61-28-3630yakenjwolk53/22/2025 8:30 AM EDT [facility] Gastroenterology [address] [address] Dmitri Garg MD [address] [place] [address] Post spine bx, closed txp eval as of nowGastroenterologyComment on above:Post spine bx, closed txp eval as of nowStart: 09-05-2024 End: 20-50-0244Ingxqi-up yhehejlel30/22/2025 8:30 AM EDT [facility] Gastroenterology [address] [address] Dmitri Garg MD [address] [place] [address] OLT txp eval /hospital follow upGastroenterologyComment on above:OLT txp eval /hospital follow upStart: 08-29-2024 End: 33-58-6166Odgmxnk encounter ceqqnhhxu07/15/2025 11:00 AM EDT Office Visit Gastroenterology [address] [address] Dmitri Garg MD [address] [place] [address] f/u post closed txp eval and new mriGastroenterologyComment on above:f/u post closed txp eval and new mriStart: 08-27-2024 End: 21-12-0826Vzsbenk encounter limxioaqt22/13/2025 12:30 PM EDT Appointment Gastroenterology [address] [place] [id number] Dmitri Garg MD [address] [place] [address] EGD/EUS & COLONOSCOPYGastroenterologyComment on above:EGD/EUS & COLONOSCOPY Start: 08-19-2024 End: 67-47-5364Syyxicwkielx/Creatinine panel in random UrineMicroalbumin / creatinine, urine ratio Lab Routine Type 2 diabetes mellitus with hyperglycemia, without long-term current use of insulin ([facility]) Expected: 08/19/2024 (Approximate), Expires: 08/19/2025[facility] Work Phone: Comment on above:Expected: 08/19/2024 (Approximate), Expires: 08/19/2025Start: 08-19-2024 End: 78-95-2714Kpwhpauwi colonoscopyCOLONOSCOPY SCREENING Endoscopy Routine Encounter for screening colonoscopy Expected: 08/19/2024, Expires: 08/12/2025 [facility] Work Phone: Comment on above:Expected: 08/19/2024, Expires: 08/12/2025Start: 08-19-2024 End: 00-04-6184Mvtggjn encounter ziiqxbrml07/05/2025 11:00 AM EDT Office Visit [facility] [address] [place] [id number] Xuan Espino PA [address] [place] [address] ArrivedNOMS CI FMComment on above:ArrivedStart: 08-15-2024 End: 33-62-2684JP Liver WO and W contrast IVMRI LIVER WO/W IVCON Radiology Routine Liver mass Expected: 08/15/2024, Expires: 06/17/2025[facility] Work Phone: Comment on above:Expected: 08/15/2024, Expires: 06/17/2025Start: 08-15-2024 End: 84-05-8332Slyxcwp encounter grallpnrf15/01/2025 11:50 AM EDT Appointment MRI Q [address] [address] Liver mass [R16.0]MRI Q Comment on above:Liver mass [R16.0]Start: 08-14-2024 End: 48-75-9705PYU - THERAPEUTIC, EUS, OR TUBE INTERVENTIONSEGD - THERAPEUTIC, EUS, OR TUBE INTERVENTIONS Endoscopy Routine Cirrhosis of liver without ascites, unspecified hepatic cirrhosis type (HCC) Expected: 08/14/2024, Expires: 08/07/2025[facility] HospitalComment on above:Expected: 08/14/2024, Expires: 08/07/2025Start: 06-03-7551Ecnagbmel for malignant neoplasm of colonOhioHealth Doctors Hospitaltart: 46-02-8953VqrdidzhiProMedica Fostoria Community Hospitaltart: 07-30-2024 Ultrasonography guided puncture and aspiration of abdomenProMedica Fostoria Community Hospitaltart: 36-55-9281Bzzmiybwcm A1c measurementDiabetes: Hemoglobin P2JMDHZGeneral Leonard [facility] Army Community HospitalStart: 07-25-2024 End: 32-66-6662Nsmklpf encounter procedureGastroenterologyComment on above:f/u post closed txp eval and new mriMetastatic hepatocellular carcinoma to bone Start: 07-05-2024 End: 49-29-9343Bnjptkv encounter enwgaitec74/21/2025 6:30 PM EDT Appointment MRI Q [address] [address] Dx: Pathological fracture, other site, initial encounter for fracture [M84.48XA]MRI QComment on above:Dx: Pathological fracture, other site, initial encounter for fracture [M84.48XA] Start: 79-66-8934Szatzvtfzv hospital visit by upfqfdfyk23/ 6:30 PM EDT Hospital Encounter MRI Q [address] [address] P athological fracture, other site, initial encounter for fracture [M84.48XA]MRI Q Comment on above:Pathological fracture, other site, initial encounter for fracture [M84.48XA]Start: 07-05-2024 End: 69-90-8496Fchrxxzdk to same day surgery rqgrgb0407/05/2024 3:30 PM EDT - 07/05/2024 4:30 PM EDT Surgery Admitting [address] [address] Morales Gregg MD [address] [place] [address] THORACENTESIS NEEDLE OR CATHETER ASPIRATION OF THE PLEURAL SPACE W IMAGING GUIDANCEAdmittingComment on above:THORACENTESIS NEEDLE OR CATHETER ASPIRATION OF THE PLEURAL SPACE W IMAGING GUIDANCEStart: 07-05-2024 Subsequent hospital visit by ezblwptmb37/21/2025 3:30 PM EDT Hospital Encounter Admitting [address] [address] Morales Gregg MD [address] [place] [address] Pleural e ffusion [J90]AdmittingComment on above:Pleural effusion [J90]Start: 07-05-2024 End: 92-24-3505Sfmekvufbtjiw needle/cath pleura w/imagingTHORACENTESIS NEEDLE OR CATHETER ASPIRATION OF THE PLEURAL SPACE W IMAGING GUIDANCE Pleural effusion 07/05/2024 3:30 PM EDT[facility] A36Adgha: 07-05-2024 End: 82-76-2659Kgfkfaz encounter procedureGastroenterologyComment on above:Dx: Other ascites [R18.8]Start: 07-04-2024 End: 86-01-1269Flexwkw encounter igzhodrjv92/20/2025 9:00 AM EDT Appointment Gastroenterology [address] [address] Dx: Other ascites [R18.8]GastroenterologyComment on above:Dx: Other ascites [R18.8] Start: 59-89-3996TsmzghefvProMedica Fostoria Community Hospitaltart: 06-19-2024 Ultrasonography guided puncture and aspiration of abdomenProMedica Fostoria Community Hospitaltart: 06-08-2024 End: 98-83-5109Vrgmdju encounter procedureMRI QComment on above:Low back pain, unspecified back pain laterality, unspecified chronicity, unspecified whether sciatica present [M54.50]Start: 51-45-2831Iuqbbniwcx hospital visit by physician 06/08/2024 1:00 PM EST Hospital Encounter MRI Q [address] [address] [id number] Low back pain, unspecified back pain laterality, unspecified chronicity, unspecified whether sciatica present [M54.50]MRI QComment on above: Low back pain, unspecified back pain laterality, unspecified chronicity, unspecified whether sciatica present [M54.50]Start: 06-04-2024 End: 26-32-4434Ovgfxwj encounter uggjznqqj08/18/2025 11:15 AM EST Appointment Radiology [address] [place] [address] [employer]; EVAL FOR RT INGUINAL HERNIARadiologyComment on above:[employer]; EVAL FOR RT INGUINAL HERNIAStart: 05-31-2024 End: 87-04-3951Fpqrncpkl to same day surgery [facility] Cath LabComment on above:CORONARY ANGIO W CATH PLACE W IMAGE INJECT & INTERP W LT HEART CATH W INJECT LT VENTRGRAPHYStart: 05-31-2024 End: 25-51-2974Hnvc plmt l hrt & arts w/njx & angio img s&iMC CATH LABStart: 32-42-7561Aqufpaezzw hospital visit by [facility] Cath LabComment on above:DIAGNOSTIC LHC ONLY (NO PLANS FOR PCI), Dx: Pleural effusion associated with hepatic disorder [K76.9, J91.8 (ICD-10-CM)]; Shortness of breath [R06.02 (ICD-10-CM)]; Lesion of liver greater than 1 cm in diameter [K76.9 (ICD-10-CM)]; Alcoholic cirrhosis of liver with ascites (HCC) [K70.31, (ICD-10-CM)]; Liver transplant candidate [Z76.82 (ICD-10-CM)]; Metabolic dysfunction-associated steatotic liverdisease (MASLD) [K76.0 (ICD-10-CM)], REF. YARELYY DR. ARAMBULAIStart: 05-31-2024 End: 77-54-4680Psxhpwjih to same day surgery qbvrbe6605/31/2024 12:45 PM EST - 05/31/2024 1:38 PM EST Surgery [facility] Solicitor Patent [address] [place] [address] Bhavya Aldana MD [address] [place] [address] [address] C[address] W IMAGE INJECT & INTERP W LT HEART CATH W INJECT LT VENTRGRAPHYHOSP Cath LabComment on above:CORONARY ANGIO W CATH PLACE W IMAGE INJECT & INTERP W LT HEART CATH W INJECT LT VENTRGRAPHYStart: 05-31-2024 End: 58-77-3151Pxfa plmt l hrt & arts w/njx & angio img s&iCORONARY ANGIO W CATH PLACE W IMAGE INJECT & INTERP W LT HEART CATH W INJECT LT VENTRGRAPHY Pleural effusion 05/31/2024 12:45 PM [facility] CATH LABStart: 89-17-1630Evpurzfkah hospital visit by /14/2025 12:45 PM [facility] Hospital Encounter HOSP Solicitor Patent [address] [place] [address] Bhavya Aldana MD [address] [place] [address] DIAGNOSTIC LHC ONLY (NO PLANS FOR PCI), [...] [K76.0 (ICD-10-CM)], REF. GLORIA ARAMBULAIStart: 05-31-2024 End: 73-71-3023mmfmnugxqb43/14/2025 11:30 AM EST Procedure Cardiology [address] [place] [address] Bhavya Aldana MD [address] [place] [address] DIAGNOSTICLHC ONLY (NO PLANS FOR PCI)CardiologyComment on above:DIAGNOSTIC LHC ONLY (NO PLANS FOR PCI)Start: 05-31-2024 End: 55-79-8445Nuywbjk encounter procedureGastroenterologyComment on above:Other ascites [R18.8]Please send for cell count and total protein. Administer 25% albumin, 6 grams/L of ascitic fluid removed.Pleural effusion associated with hepatic disorder [K76.9, J91.8]RS// Pleural effusion associated with hepatic disorder [K76.9, J91.8]ADMITUnilateral inguinal hernia without obstruction or gangrene, recurrence not specified [K40.90]Start: 05-30-2024 End: 93-37-9614Evbnyxmnpcafl needle/cath pleura w/imaging PULM LAB W71Gbggx: 31-95-1200Qhoubyeaj B Vaccine (2 of 2 - CpG risk 2-dose series)Hepatitis B Vaccine (2 of 2 - CpG risk 2-dose series)[facility]: 21-97-5451Qgruz screening for proteinDiabetes: Urine Protein ScreeningHE[facility] HealthcareStart: 83-60-9946Yjtcsnng screeningDiabetes: Retinopathy ScreeningNOSD HealthcareStart: 05-23-2024 End: 34-85-1638Vrawmkg encounter procedureRadiologyComment on above:Pleural effusion associated with hepatic disorder [K76.9, J91.8]Start: 05-23-2024 End: 46-30-3901tmtihrtxfl06/06/2025 10:15 AM EST Results Only [place] [address] [address] [place], [place] [id number] Liver transplant candidate [Z76.82][place] [address] Draw StationComment on above:Liver transplant candidate [Z76.82]Start: 05-21-2024 End: 11-04-6830Jeczi metabolic 2000 panel - Serum or PlasmaBASIC METABOLIC PANEL Lab Routine Primary hypertension Expected: 05/21/2024, Expires: 08/20/2024 [facility] HospitalComment on above:Expected: 05/21/2024, Expires: 08/20/2024Start: 05-21-2024 End: 55-43-4066BSD panel - Blood by Automated countCOMPLETE BLOOD COUNT Lab Routine Primary hypertension Expected: 05/21/2024, Expires: 08/20/2024[facility] Work Phone: Comment on above:Expected: 05/21/2024, Expires: 08/20/2024Start: 05-21-2024 End: 94-97-9831LX panel - Platelet poor plasma by Coagulation assayPROTHROMBIN TIME Lab Routine Primary hypertension Expected: 05/21/2024, Expires: 08/20/2024 [facility] HospitalComment on above:Expected: 05/21/2024, Expires: 08/20/2024Start: 05-20-2024 End: 84-36-9613Frwif-1-Fetoprotein [Mass/volume] in Serum or PlasmaALPHA FETOPROTEIN Lab STAT Liver transplant candidate Expected: 05/20/2024, Expires: 08/19/2024[facility] Work Phone: Comment on above:Expected: 05/20/2024, Expires: 08/19/2024Start: 05-16-2024 End: 72-62-8676Dzcqzet encounter procedureNOMS CI FMComment on above:Arrived Start: 05-14-2024 End: 20-00-8708TAZ panel - Blood by Automated countCOMPLETE BLOOD COUNT Lab Routine Cirrhosis of liver without ascites, unspecified hepatic cirrhosis type (HCC) Expected: 05/14/2024, Expires: 08/13/2024[facility] Work Phone: Comment on above:Expected: 05/14/2024, Expires: 08/13/2024Start: 05-14-2024 End: 62-51-3124Hvushxrkqbhkp metabolic 2000 panel - Serum or PlasmaCOMPREHENSIVE METABOLIC PANEL Lab Routine Cirrhosis of liver without ascites, unspecified hepatic cirrhosis type (HCC) Expected: 05/14/2024, Expires: 08/13/2024[facility] HospitalComment on above:Expected: 05/14/2024, Expires: 08/13/2024Start: 05-06-2024 End: 74-79-6644Nicuzshdoztjd metabolic 2000 panel - Serum or PlasmaCOMPREHENSIVE METABOLIC PANEL Lab Routine Liver transplant candidate Expected: 05/06/2024, Expires:08/05/2024[facility] Work Phone: Comment on above:Expected: 05/06/2024, Expires: 08/05/2024Start: 05-02-2024 End: 98-44-4813Kwsdf metabolic 2000 panel - Serum or PlasmaBASIC METABOLIC PANEL Lab Routine Pleural effusion associated with hepatic disorder Shortness of carter ath Lesion of liver greater than 1 cm in diameter Alcoholic cirrhosis of liver with ascites (HCC) Liver transplant candidate Metabolic dysfunction-associated steatotic liver disease (MASLD) Expected:05/02/2024, Expires: 08/01/2024 [facility] HospitalComment on above:Expected: 05/02/2024, Expires: 08/01/2024Start: 05-02-2024 End: 99-73-8639XKE panel - Blood by Automated countCOMPLETE BLOOD COUNT Lab Routine Pleural effusion associated with hepatic disorder Shortness of breath Lesion of liver greater than 1 cm in diameter Alcoholic cirrhosis of liver with ascites (HCC) Liver transplant candidate Metabolic dysfunction-associated steatotic liver disease (MASLD) Expected: 05/02/2024, Expires: 08/01/2024 [facility] Work Phone: Comment on above:Expected: 05/02/2024, Expires: 08/01/2024Start: 05-02-2024 End: 98-52-6301MF panel - Platelet poor plasma by Coagulation assayPROTHROMBIN TIME Lab Routine Pleural effusion associated with hepatic disorder Shortness of breath Lesion of liver greater than 1 cm in diameter Alcoholic cirrhosis of liver with ascites (HCC) Liver transplant candidate Metabolic dysfunction- associated steatotic liver disease (MASLD) Expected: 05/02/2024, Expires: 08/01/2024[facility] ClinicComment on above:Expected: 05/02/2024, Expires: 08/01/2024Start: 05-02-2024 End: 57-14-3356Zlcssvq encounter procedureCardiologyComment on above:Diagnosis: Pleural effusion associated with hepatic disorder [K76.9, J91.8]PRE LIVER TRANSPLANT EVALStart: 05-01-2024 End: 86-87-4828Hyvbtsxnx to same day surgery tryubb6805/01/2024 12:30 PM EST - 05/01/2024 1:30 PM EST Surgery Admitting [address] [address] Nilay Villatoro MD [address] [place] [address] THORACENTESIS NEEDLE OR CATHETER ASPIRATION OF THE PLEURAL SPACE W IMAGING GUIDANCEAdmittingComment on above:THORACENTESIS NEEDLE OR CATHETER ASPIRATION OF THE PLEURAL SPACE W IMAGING GUIDANCEStart: 05-01-2024 Subsequent hospital visit by enutuockh93/15/2025 12:30 PM EST Hospital Encounter Admitting [address] [address] Nilay Villatoro MD [address] [place] [address] Pleural e ffusion [J90]AdmittingComment on above:Pleural effusion [J90]Start: 05-01-2024 End: 06-87-0804Fexuzhshsictq needle/cath pleura w/imaging PULM LAB C25Gqisw: 05-01-2024 End: 95-17-5767Nvhzltr encounter procedureCardiologyComment on above:Lesion of liver greater than 1 cm in diameter [K76.9]LIVER TRANSPLANT EVALUATIONShortness of breath [R06.02]Start: 04-30-2024 End: 27-85-1166Znflxsf encounter procedureTransplant CenterComment on above: LIVER TRANSPLANT EVALUATIONStart: 04-29-2024 End: 04-08-2683Gxxkpua encounter procedureTransplant CenterComment on above: LIVER TRANSPLANT EVALUATIONPleural effusion associated with hepatic disorder; Shortness of breath; Lesion of liver greater than 1 cm in diameter; Encounter for screening for malignant neoplasm of prostate; Alcoholic cirrhosis of liver with ascites (HCC); Liver transplant candidate; Metabolic dysfunction-associated steatotic liver disease (MASLD)Start: 04-29-2024 End: 412582-igdikazmnmybij D3 [Mass/volume] in Serum or PlasmaVITAMIN D 25 HYDROXY Lab Routine Lesion of liver greater than 1 cm in diameter Alcoholic cirrhosis of liver with ascites (HCC) Liver transplant candidate Metabolic dysfunction-associated steatotic liver disease (MASLD) Expected: 04/29/2024, Expires: 07/29/2024[facility] ClinicComment on above:Expected: 04/29/2024, Expires: 07/29/2024Start: 04-29-2024 End: 72-40-3676WACCS 1 ANTITRYPSIN PHENOTYPEALPHA 1 ANTITRYPSIN PHENOTYPE Lab Routine Lesion of liver greater than 1 cm in diameter Alcoholic cirrhosis of liver with ascites (HCC) Liver transplant candidate Metabolic dysfunction- associated steatotic liver disease (MASLD) Expected: 04/29/2024, Expires: 07/29/2024[facility] ClinicComment on above:Expected: 04/29/2024, Expires: 07/29/2024Start: 04-29-2024 End: 67-50-9897Vnpge tocopherol [Mass/volume] in Serum or PlasmaVITAMIN E/TOCOPHEROL Lab Routine Lesion of liver greater than 1 cm in diameter Alcoholic cirrhosis of liver with ascites (HCC) Liver transplant candidate Metabolic dysfunction-associated steatotic liver disease (MASLD) Expected: 04/29/2024, Expires: 07/29/2024[facility] ClinicComment on above:Expected: 04/29/2024, Expires: 07/29/2024Start: 04-29-2024 End: 28-19-2673Cvfdd-1-Fetoprotein [Mass/volume] in Serum or PlasmaALPHA FETOPROTEIN Lab Routine Lesion of liver greater than 1 cm in diameter Alcoholic cirrhosis of liver with ascites (HCC) Liver transplant candidate Metabolic dysfunction-associated steatotic liverdisease (MASLD) Expected: 04/29/2024, Expires: 07/29/2024[facility] ClinicComment on above:Expected: 04/29/2024, Expires: 07/29/2024Start: 04-29-2024 End: 71-57-8081mTLA in Platelet poor plasma by Coagulation assayACTIVATED PARTIAL THROMBOPLASTIN TIME Lab Routine Lesion of liver greater than 1 cm in diameter Alcoholic cirrhosis of liver with ascites (HCC) Liver transplant candidate Metabolic dysfunction-associated steatotic liver disease (MASLD) Expected: 04/29/2024, Expires: 07/29/2024[facility] ClinicComment on above: Expected: 04/29/2024, Expires: 07/29/2024Start: 04-29-2024 End: 84-06-4513Pinzf metabolic 2000 panel - Serum or PlasmaBASIC METABOLIC PANEL Lab Routine Lesion of liver greater than 1 cm in diameter Alcoholic cirrhosisof liver with ascites (HCC) Liver transplant candidate Metabolic dysfunction- associated steatotic liver disease (MASLD) Expected: 04/29/2024, Expires: 07/29/2024[facility] ClinicComment on above:Expected: 04/29/2024, Expires: 07/29/2024Start: 04-29-2024 End: 34-03-7914WTMGR TB SCREENBLOOD TB SCREEN Lab Routine Lesion [...] on above:Expected: 04/29/2024, Expires: 07/29/2024Start: 04-29-2024 End: 75-19-7692Qxjspl Ag 19-9 [Units/volume] in Serum or PlasmaCA 19-9 Lab Routine Lesion of liver greater than 1 cm in diameter Alcoholic cirrhosis of liver withascites (HCC) Liver transplant candidate Metabolic dysfunction- associated steatotic liver disease (MASLD) Expected: 04/29/2024, Expires: 07/29/2024[facility] ClinicComment on above:Expected: 04/29/2024, Expires: 07/29/2024Start: 04-29-2024 End: 31-48-7643VED W Auto Differential panel - BloodCOMPLETE BLOOD COUNT AND DIFFERENTIAL Lab Routine Lesion of liver greater than 1 cm in diameter Alcoholic cirrhosis of liver with ascites (HCC) Liver transplant candidate Metabolic dysfunction-associated steatotic liver disease (MASLD) Expected: 04/29/2024, Expires: 07/29/2024[facility] ClinicComment on above:Expected: 04/29/2024, Expires: 07/29/2024Start: 04-29-2024 End: 59-72-6272Ituvpxm hepatitis differentiation between hepatitis B and C virus panel - Serum or PlasmaHEP REMOTE PANEL BL Lab Routine Lesion of liver greater than 1 cm in diameter Alcoholic cirrhosis of liver with ascites (HCC) Liver transplant candidate Metabolic dysfunction-associated steatotic liver disease (MASLD) Expected: 04/29/2024, Expires: 07/29/2024[facility] ClinicComment on above:Expected: 04/29/2024, Expires: 07/29/2024Start: 04-29-2024 End: 66-30-8493AEIAZCQEIC BLDCREATININE BLD Lab Routine Lesion of liver greater than 1 cm in diameter Alcoholic cirrhosis of liver with ascites (HCC) Liver transplant candidate Metabolic dysfunction-associated steatotic liver disease (MASLD) Expected: 04/29/2024, Expires: 07/29/2024[facility] ClinicComment on above:Expected: 04/29/2024, Expires: 07/29/2024Start: 04-29-2024 End: 77-01-1395MX Chest WO contrastCT CHEST WO IVCON Radiology Routine Pleural effusion associated with hepatic disorder Shortness of breath Lesion of liver greater than 1 cm in diameter Alcoholic cirrhosis of liver with ascites (HCC) Liver transplant candidate Metabolic dysfunction-associated steatotic liver disease (MASLD) Expected: 04/29/2024, Expires: 05/23/2025[facility] ClinicComment on above:Expected: 04/29/2024, Expires: 05/23/2025Start: 04-29-2024 End: 74-26-5847LP Liver W contrast IVCT LIVER W IVCON Radiology Routine Lesion of liver greater than 1 cm in diameter Alcoholic cirrhosis of liver with ascites (HCC) Liver transplant candidate Metabolic dysfunction-associated steatotic l iver disease (MASLD) Expected: 04/29/2024, Expires: 05/23/2025[facility] Comment on above:Expected: 04/29/2024, Expires: 05/23/2025Start: 04-29-2024 End: 16-81-8518Orqjoibctkzmuzb IgG Ab [Units/volume] in Serum or PlasmaCMV IGG ANTIBODY BL Lab Routine Lesion of liver greater than 1 cm in diameter Alcoholic cirrhosis of liver with ascites (HCC) Liver transplant candidate Metabolic dysfunction-associated steatotic liver disease (MASLD) Expected: 04/29/2024, Expires: 07/29/2024[facility] ClinicComment on above:Expected: 04/29/2024, Expires: 07/29/2024Start: 04-29-2024 End: 32-30-7059IES COMPLETEECG COMPLETE ECG Routine Lesion of liver greater than 1 cm in diameter Alcoholic cirrhosis of liverwith ascites (HCC) Liver transplant candidate Metabolic dysfunction-associated steatotic liver disease (MASLD) Expected: 04/29/2024, Expires: 04/23/2025[facility] ClinicComment on above:Expected: 04/29/2024, Expires: 04/23/2025Start: 04-29-2024 End: 53-17-6187MkfgezbvocblnvysGPYA Cardiology Routine Lesion of liver greater than 1 cm in diameter Alcoholic cirrhosis of liver with ascites (HCC) Liver transplant candidate Metabolic dysfunction-associated steatotic liver disease (MASLD) Expected: 04/29/2024, Expires: 04/23/2025[facility] ClinicComment on above:Expected: 04/29/2024, Expires: 04/23/2025Start: 04-29-2024 End: 85-96-5892Fpzsddw Pearson virus capsid IgG Ab [Units/volume] in SerumEPSTEIN- PEARSON VCA IGG Lab Routine Lesion of liver greater than 1 cm in diameter Alcoholic cirrhosis of liver with ascites (HCC) Liver transplant candidate Metabolic dysfunction-associated steatotic liver disease (MASLD) Expected: 04/29/2024, Expires: 07/29/2024[facility] ClinicComment on above:Expected: 04/29/2024, Expires: 07/29/2024Start: 04-29-2024 End: 08-09-8366Pscgdzpo [Mass/volume] in Serum or PlasmaFERRITIN Lab Routine Lesion of liver greater than 1 cm in diameter Alcoholic cirrhosis of liver with ascites (HCC) Liver transplant candidate Metabolic dysfunction-associated steatotic liver disease (MASLD) Expected: 04/29/2024, Expires: 07/29/2024 [facility] HospitalComment on above:Expected: 04/29/2024, Expires: 07/29/2024Start: 04-29-2024 End: 38-11-1480Yvfnnauuru A1c in BloodHEMOGLOBIN A1C Lab Routine Lesion of liver greater than 1 cm in diameter Type 2 diabetes mellitus without complication, without long-term current use of insulin (HCC) Alcoholic cirrhosis of liver with ascites (HCC) Liver transplant candidate Metabolic dysfunction-associated steatotic liver disease (MASLD) Expected: 04/29/2024, Expires: 07/29/2024 [facility] HospitalComment on above:Expected: 04/29/2024, Expires: 07/29/2024Start: 04-29-2024 End: 04-53-5667Ouogzwp function 2000 panel - Serum or PlasmaHEPATIC FUNCTION PNL Lab Routine Lesion of liver greater than 1 cm in diameter Alcoholic cirrhosis o f liver with ascites (HCC) Liver transplant candidate Metabolic dysfunction- associated steatotic liver disease (MASLD) Expected: 04/29/2024, Expires: 07/29/2024[facility] ClinicComment on above:Expected: 04/29/2024, Expires: 07/29/2024Start: 04-29-2024 End: 85-95-9467EGCFMZRGY A ANTIBODY, IGGHEPATITIS A ANTIBODY, IGG Lab Routine Lesion of liver greater than 1 cm in diameter Alcoholic cirrhosis of liver with ascites (HCC) Liver transplant candidate Metabolic dysfunction-associated steatotic liver disease (MASLD) Expected: 04/29/2024, Expires: 07/29/2024 [facility] HospitalComment on above:Expected: 04/29/2024, Expires: 07/29/2024Start: 04-29-2024 End: 65-69-9610MZZ 1+2 Ab [Presence] in Serum or Plasma by ImmunoassayHIV 1/2 COMBO WITH REFLEX TO DIFFERENTIATION Lab Routine Lesion of liver greater than 1 cm in diameter Alcoholic cirrhosis of liver with ascites (HCC) Liver transplant candidate Metabolic dysfunction-associated steatotic liver disease (MASLD) Expected: 04/29/2024, Expires: 07/29/2024[facility] ClinicComment on above: Expected: 04/29/2024, Expires: 07/29/2024Start: 04-29-2024 End: 55-93-2439Vdrs and Iron binding capacity panel - Serum or PlasmaIRON AND TIBC Lab Routine Lesion of liver greater than 1 cm in diameter Alcoholic cirrhosis of liver with ascites (HCC) Liver transplant candidate Metabolic dysfunction-associated steatotic liver disease (MASLD) Expected: 04/29/2024, Expires: 07/29/2024[facility] ClinicComment on above:Expected: 04/29/2024, Expires: 07/29/2024Start: 04-29-2024 End: 07-23-4345Cybiy 1996 panel - Serum or PlasmaLIPID PANEL BASIC Lab Routine Lesion of liver greater than 1 cm in diameter Alcoholic cirrhosis of liver with ascites (HCC) Liver transplant candidate Metabolic dysfunction-associated steatotic liverdisease (MASLD) Expected: 04/29/2024, Expires: 07/29/2024 [facility] HospitalComment on above:Expected: 04/29/2024, Expires: 07/29/2024Start: 04-29-2024 End: 00-81-6007Gabttjjboae a [Mass/volume] in Serum or PlasmaLIPOPROTEIN (A) Lab Routine Lesion of liver greater than 1 cm in diameter Alcoholic cirrhosis of liver with ascites (HCC) Liver transplant candidate Metabolic dysfunction- associated steatotic liver disease (MASLD) Expected: 04/29/2024, Expires: 07/29/2024[facility] ClinicComment on above:Expected: 04/29/2024, Expires: 07/29/2024Start: 04-29-2024 End: 35-03-0902ZLCHT REC INIT W/ULIVER REC INIT W/U ALLOGEN Routine Lesion of liver greater than 1 cm in diameter Alcoholic cirrhosis of liver with ascites (HCC) Liver transplant candidate Metabolic dysfunction-associated steatotic l iver disease (MASLD) Expected: 04/29/2024, Expires: 04/23/2025[facility] Comment on above:Expected: 04/29/2024, Expires: 04/23/2025Start: 04-29-2024 End: 36-01-3847Scfdphcwxve peptide.B prohormone N-Terminal [Mass/volume] in Serum or PlasmaNT PRO BNP Lab Routine Lesion of liver greater than 1 cm in diameter Alcoholic cirrhosis of liver with ascites (HCC) Liver transplant candidate Metabolic dysfunction-associated steatotic liver disease (MASLD) Expected: 04/29/2024, Expires: 07/29/2024[facility] ClinicComment on above: Expected: 04/29/2024, Expires: 07/29/2024Start: 04-29-2024 End: 80-07-4193SYFANNFBSWZHCIKVFQV (PETH)PHOSPHATIDYLETHANOL (PETH) Lab Routine Lesion of liver greater than 1 cm in diameter Alcoholic cirrhosis of liver with ascites (HCC) Liver transplant candidate Metabolic dysfunction-associated steatotic liver disease (MASLD) Expected: 04/29/2024, Expires: 07/29/2024 [facility] HospitalComment on above:Expected: 04/29/2024, Expires: 07/29/2024Start: 04-29-2024 End: 23-45-4250VXL/PROSTATE SPECIFIC ANTIGEN SCREENINGPSA/PROSTATE SPECIFIC ANTIGEN SCREENING Lab Routine Lesion of liver greater than 1 cm in diameter En counter for screening for malignant neoplasm of prostate Alcoholic cirrhosis of liver with ascites (HCC) Liver transplant candidate Metabolic dysfunction- associated steatotic liver disease (MASLD) Expected: 04/29/2024, Expires: 07/29/2024[facility] ClinicComment on above:Expected: 04/29/2024, Expires: 07/29/2024Start: 04-29-2024 End: 46-21-9752RI panel - Platelet poor plasma by Coagulation assayPROTHROMBIN TIME Lab Routine Lesion of liver greater than 1 cm in diameter Alcoholic cirrhosis of liver with ascites (HCC) Liver transplant candidate Metabolic dysfunction-associated steatotic liver disease (MASLD) Expected: 04/29/2024, Expires: 07/29/2024[facility] Work Phone: Comment on above:Expected: 04/29/2024, Expires: 07/29/2024Start: 04-29-2024 End: 86-87-0428Chjbbuv [Mass/volume] in Serum or PlasmaVITAMIN A/RETINOL Lab Routine Lesion of liver greater than 1 cm in diameter Alcoholic cirrhosis of l iver with ascites (HCC) Liver transplant candidate Metabolic dysfunction- associated steatotic liverdisease (MASLD) Expected: 04/29/2024, Expires: 07/29/2024[facility] ClinicComment on above:Expected: 04/29/2024, Expires: 07/29/2024Start: 04-29-2024 End: 37-33-6710PIXKGJE (MEASLES)IGGRUBEOLA (MEASLES)IGG Lab Routine Lesion of liver greater than 1 cm in diameter Alcoholic cirrhosis of liver with ascites (HCC) Liver transplant candidate Metabolic dysfunction-associated steatotic chuyita er disease (MASLD) Expected: 04/29/2024, Expires: 07/29/2024[facility] Comment on above:Expected: 04/29/2024, Expires: 07/29/2024Start: 04-29-2024 End: 72-89-6566ECZAVBMDWL BASELINE ONLYOrlando ClinicComment on above: Expected: 04/29/2024, Expires: 05/23/2025Start: 04-29-2024 End: 91-60-4244MIYLMBNS TREPONEMAL W/REFLEXSYPHILIS TREPONEMAL W/REFLEX Lab Routine Lesion of liver greater than 1 cm in diameter Alcoholic cirrhosis of liver with ascites (HCC) Liver transplant candidate Metabolic dysfunction- associated steatotic liver disease (MASLD) Expected: 04/29/2024, Expires: 07/29/2024[facility] ClinicComment on above:Expected: 04/29/2024, Expires: 07/29/2024Start: 04-29-2024 End: 04-99-7803Srvdzygxbkq [Units/volume] in Serum or PlasmaTHYROID STIMULATING HORMONE Lab Routine Lesion of liver greater than 1 cm in diameter Alcoholic cirr hosis of liver with ascites (HCC) Liver transplant candidate Metabolic dysfunction-associated steatotic liver disease (MASLD) Expected: 04/29/2024, Expires: 07/29/2024[facility] ClinicComment on above:Expected: 04/29/2024, Expires: 07/29/2024Start: 04-29-2024 End: 25-97-1523QJECXQUFQJ PANEL BLDTOXICOLOGY PANEL BLD Lab Routine Lesion of liver greater than 1 cm in diameter Alcoholic cirrhosis of liver with ascites (HCC) Liver transplant candidate Metabolic dysfunction-associated steatotic chuyita er disease (MASLD) Expected: 04/29/2024, Expires: 07/29/2024[facility] Comment on above:Expected: 04/29/2024, Expires: 07/29/2024Start: 04-29-2024 End: 79-72-8169SVKRQKQSKV SCREEN, ROUTINE URINETOXICOLOGY SCREEN, ROUTINE URINE Lab Routine Lesion of liver greater than 1 cm in diameter Alcoholic cirrhosis of liver with ascites (HCC) Liver transplant candidate Metabolic dysfunction- associated steatotic liver disease (MASLD) Expected: 04/29/2024, Expires: 07/29/2024[facility] ClinicComment on above:Expected: 04/29/2024, Expires: 07/29/2024Start: 04-29-2024 End: 97-64-6229PALLYQTCLW CONFIRM ABO/RHTRANSPLANT CONFIRM ABO/RH Blood Bank Routine Lesion of liver greater than 1 cm in diameter Alcoholic cirrhosis of liver with ascites (HCC) Liver transplant candidate Metabolic dysfunction- associated steatotic liver disease (MASLD) Expected: 04/29/2024, Expires: 07/29/2024[facility] ClinicComment on above:Expected: 04/29/2024, Expires: 07/29/2024Start: 04-29-2024 End: 79-99-7442TBEB + SCREENTYPE + SCREEN Blood Bank Routine Lesion of liver greater than 1 cm in diameter Alcoholic cirrhosis of liver with ascites (HCC) Liver transplant candidate Metabolic dysfunction-associated steatotic liver disease (MASLD) Expected: 04/29/2024, Expires: 07/29/2024[place] ClinicComment on above:Expected: 04/29/2024, Expires: 07/29/2024Start: 04-29-2024 End: 04-50-3585SAXEDCOHE ZOSTER IGGVARICELLA ZOSTER IGG Lab Routine Lesion of liver greater than 1 cm in diameter Alcoholic cirrhosis of liver with ascites (HCC) Liver transplant candidate Metabolic dysfunction-associated steatotic chuyita er disease (MASLD) Expected: 04/29/2024, Expires: 07/[facility]/2024[facility] Comment on above:Expected: 04/29/2024, Expires: 07/29/2024Start: 04-29-2024 End: 10-76-7016Fsyvuzrzn ctlggkt7904/29/2024 11:00 AM EST [facility] [address] [place] [address] SaraIvelisse Cabrera, RD [address] [id number] LIVER TRANSPLANT EVALUATIONNutrition TherapyComment on above: LIVER TRANSPLANT EVALUATIONStart: 04-29-2024 End: 18-99-3063dynjtdjeogMtlphdodpdDqlurbq on above:LIVER TRANSPLANT EVALUATION TRANSPLANT LIVER EVALStart: 04-29-2024 End: 54-72-8996Zlcujic encounter procedureMain [place] A15 Draw StationComment on above:LIVER TRANSPLANT EVALUATIONStart: 04-25-2024 End: 66-29-8900zsglkngoow31/09/2025 10:00 AM EST [facility] [address] [place] [address] Coordinator, Liver Txp [address] [place] [address] LIVER T RANSPLANT EVALUATIONTransplant CenterComment on above:LIVER TRANSPLANT EVALUATIONStart: 33-98-3265Wuvjadq Directive DiscussionAdvance Directive DiscussionOhioHealth Doctors Hospitaltart: 01-01-2025Medicare Advantage Annual Well[facility] Annual Wellness VisitOhioHealth Doctors Hospitaltart: 02-22-2024 End: 55-86-3323Zyrjred encounter opaqyifzt35/07/2024 9:00 AM EST Procedure Visit [facility] Ira Walker, DO [address] [place] [address] [facility] EXT DEPStart: 02-15-2024 Hemoglobin A1c measurementDiabetes: Hemoglobin V1XCMNU HealthcareStart: 02-08-2024 End: 40-14-3969Nfkyiom encounter awpjhfzdh44/24/2024 8:15 AM EDT Procedure Visit [facility] EX[facility]P Ira Walker, DO [address] [place] [address] [facility] EXT DEPStart: 01-18-2024 End: 04-73-8011Nmnomfn encounter haiiszmbw43/03/2024 1:30 PM EDT Office Visit [facility] NB OPHT [address] [place] [phone] Ira Walker, DO [address] [place] [address] ArrivedNOSD NB OPHTComment on above:ArrivedStart: 07-10-2560Mtxcv-19 Vaccine ( season)Covid-19 Vaccine ( season)[facility]: 26-98-2316Awqfg-19 Vaccine ( season) Covid-19 Vaccine ( season)[facility]: 21-05-6751Eudvxkfmv vaccinationInfluenza Vaccine (#1)[facility]OM[facility] HealthcareStart: 12-13-2023 End: 59-19-5262RY Heart TransthoracicTransthoracic Echo (TTE) Complete Echocardiography Routine Cirrhosis of liver with ascites, unspecified hepatic cirrhosis type (CMS/HCC) Dizziness QUESADA (dyspnea on exertion) Other ascites Expected: 12/13/2023 (Approximate), Expires: 12/12/2025[facility] Work Phone: Comment on above:Expected: 12/13/2023 (Approximate), Expires: 12/12/2025Start: 12-13-2023 End: 64-82-2105Twclboo encounter /28/2024 1:30 PM EDT Office Visit [facility] ARACELY [address] [place] [address] Xuan Espino PA [address] [place] [address] [facility] CI FMStart: 87-93-5003Uxaxosofyu A1c measurement Diabetes: Hemoglobin C1DMJRE HealthcareStart: 13-04-4297AupfklbouProMedica Fostoria Community Hospitaltart: 75-14-6447GicrtdndcProMedica Fostoria Community Hospitaltart: 06-13-2023 End: 62-30-3640Fnjnpin encounter /27/2024 1:30 PM EST Procedure Visit [facility] EX[facility]P Brayan Alves H, DO [address] [address] [facility] EXT DEPStart: 06-09-2023 End: 54-92-6993Hwaglzx encounter imdfeaeik16/23/2024 10:30 AM EST Office Visit [facility] [address] [facility] [address] [place] [address] Brayan Alves H, DO [address] [facility] [address] [place] [address] GENSStart: 02-09-2024Medicare Annual Wellness (AWV)Medicare Annual Wellness (AWV)[facility] HospitalStart: 71-61-8509DpaomzhkbProMedica Fostoria Community Hospitaltart: 41-68-7805Xnbpote Directive DiscussionAdvance Directive DiscussionOhioHealth Doctors Hospitaltart: 74-73-3750Hrjzgrnove A1c measurement Diabetes: Hemoglobin X4TORZB HealthcareStart: 57-62-0288DaftvfawkProMedica Fostoria Community Hospitaltart: 73-79-5014Awinwatrjg elastography of liverDH Fibroscan (Not Applicable)[facility] Hospitaltart: 97-86-2377Newchekedk elastography of liverDH Fibroscan (Not Applicable)[facility] Hospitaltart: 78-62-8003LoysbyimaProMedica Fostoria Community Hospitaltart: 09-21-2022 Hepatitis B core antibody measurementProMedica Fostoria Community Hospitaltart: 09-21-2022 End: 59-94-7474XmrkueldoProMedica Fostoria Community Hospitaltart: 43-27-4433Tbpciiwo Vaccine (2 of 2)Shingrix Vaccine (2 of 2)[facility]: 06-25-2022 Shingrix Vaccine (3 of 3)Shingrix Vaccine (3 of 3)[facility]: 90-20-1945GLoS/Tdap/Td Vaccines (2 - Td or Tdap)DTaP/Tdap/Td Vaccines (2 - Td or Tdap)[facility] HospitalStart: 38-06-2316Hzwii-19 Vaccine (3 - Moderna risk series) Covid-19 Vaccine (3 - Moderna risk series)[facility]: 08-13-2019 Screening for malignant neoplasm of colonOhioHealth Doctors Hospitaltart: 2018 Pneumococcal Vaccine: 65+ (1 of 1 - PCV)Pneumococcal Vaccine: 65+ (1 of 1 - PCV) [facility]: 14-17-7259Lvfxemqmelrs Vaccine: 65+ Years (1 of 1 - PCV) Pneumococcal Vaccine: 65+ Years (1 of 1 - PCV)[facility] HospitalStart: 2013 Hepatitis B Vaccine (1 of 3 - Risk 3-dose series)Hepatitis B Vaccine (1 of 3 - Risk 3-dose series)[facility]: 82-31-5275JAU Vaccine (1 - Risk 60-74 years 1-dose series)RSV Vaccine (1 - Risk 60-74 years 1-dose series)[facility]: 60-95-7158Mjszjdzthpyb Vaccine: 50+ (1 of 1 - PCV)Pneumococcal Vaccine: 50+ (1 of 1 - PCV)[facility]: 77-93-5974Slovhxaqq for malignant neoplasm of colonOhioHealth Doctors Hospitaltart: 82-91-4296Eengqobqq A Vaccine (1 of 2 - Risk 2-dose series)Hepatitis A Vaccine (1 of 2 - Risk 2-dose series) [facility]: 95-15-6696Toqgy screening for proteinDiabetes: Urine Protein ScreeningGeneral [facility] Army Community HospitalStart: 73-88-2289Lwpyqt PCP Team Chronic Disease VisitAnnual PCP Team Chronic Disease VisitOhioHealth Doctors Hospitaltart: 08-03-1971 Anxiety ScreeningAnxiety ScreeningOhioHealth Doctors Hospitaltart: 02-69-6008YR Controlled (<130/80)BP Controlled (<130/80)[facility]: 44-44-7255Asszrhzxky ScreeningDepression ScreeningOhioHealth Doctors Hospitaltart: 62-39-5681Nijutxhawabk Vaccine: 65+ Years (1 - PCV)Pneumococcal Vaccine: 65+ Years (1 - PCV)[facility] HospitalStart: 71-67-3954Hmmsuekfszkg Vaccine: 65+ Years (1 of 2 - PCV) Pneumococcal Vaccine: 65+ Years (1 of 2 - PCV)[facility] HospitalStart: 1953 Abdominal aortic aneurysm screeningAbdominal Aortic Aneurysm ScreeningOhioHealth Doctors Hospitaltart: 04-18-1954Medicare Annual Wellness (AWV)Medicare Annual Wellness (AWV)[facility] HospitalStart: 32-95-4274Cjvepwffs for malignant neoplasm of colon [facility] smooth muscle IgG Ab [Units/volume] in SerumMercy HealthAlpha 1 antitrypsin [Mass/volume] in Serum or Plasma Mercy HealthAlpha 1 antitrypsin phenotyping [Identifier] in Serum or Plasma by ImmunofixationMercy Health End: 01-19-2577Iujvg-1-Fetoprotein [Mass/volume] in Serum or PlasmaALPHA FETOPROTEIN Lab [...] of breath Livertransplant candidate 05/01/2024 10:43 AM [facility] HospitalBacteria identified in Unspecified specimen by Anaerobe cultureWilson Health Work Phone: comment on above:Release Upon Ordering for 1 Occurrences starting 5BLOOD CULTURE 1BLOOD CULTURE 1 Lab Routine 11/21/2024 1:47 PM EDTNOSD HealthcareBODY FLUID CULTURE, STERILEBODY FLUID CULTURE, STERILE Lab Routine 12/08/2023 7:30 AM EDTNOSD HealthcareCBC W Auto Differential panel - BloodCBC and differential Lab Routine Other acute postprocedural pain Ordered: 08/19/2024NOMadison Medical CenterComment on above:Ordered: 08/19/2024efuroxime free [Mass/volume] in Serum or [facility] HospitalCeruloplasmin [Mass/volume] in Serum or [facility] End: 25-01-9811Jrciujaprkqct metabolic 1999 panel - Serum or PlasmaCOMPREHENSIVE METABOLIC PANEL Lab Routine Liver transplant candidate Once per week for 5 Occurrences starting 06/03/2024 until 06/03/2025[facility] Work Phone: Comment on above:Once per week for 5 Occurrences starting 06/03/2024 until 06/03/2025 End: 54-69-1278Djhxisibodxec metabolic 2000 panel - Serum or PlasmaCOMPREHENSIVE METABOLIC PANEL Lab Routine Other ascites Once per week for 12 Occurrences starting 07/02/2024 until 07/02/2025[facility] Work Phone: Commktf on above:Once per week for 12 Occurrences starting 07/02/2024 until 07/02/2025 End: 64-20-9048Oaglurigwmigf metabolic 2000 panel - Serum or PlasmaCOMPREHENSIVE METABOLIC PANEL Lab Routine Cirrhosis of liver without ascites, unspecified hepatic cirrhosis type (HCC) Once per week for 12 Occurrences starting 07/25/2024 until 07/25/2025[facility] Work Phone: Comment on above:Once per week for 12 Occurrences starting 07/25/2024 until 07/25/2025 End: 99-44-6064QH Chest W contrast IVCMercy Health [facility] Work Phone: Comment on above:ONCE for 1 Occurrences starting 04/29/2024 until 04/29/2024YTOLOGY NON-[facility] HospitalComment on above: Release Upon Ordering for 1 Occurrences starting 05/01/2024, 1 completed End: 54-53-5481WXO COMPLETEECG COMPLETE ECG Routine Pleural effusion associated with hepatic disorder Shortness of breath Lesion of liver greater than 1 cm in diameter Alcoholic cirrhosis of liver with ascites (HCC) Liver transplant candidate Metabolic dysfunction-associated steatotic liver disease (MASLD) 1 Occurrences starting 05/02/2024 until 05/02/2025[facility] HospitalComment on above:1 Occurrences starting 05/02/2024 until 05/02/2025ECG COMPLETEECG COMPLETE ECG 09/29/2024 5:[address] [facility] End: 82-30-0403FRIZJHVD Endoscopy Routine Bile duct stricture (HCC) 1 Occurrences starting 11/13/2024 until 11/13/2025[facility] Work Phone: Comment on above:1 Occurrences starting 11/13/2024 until 11/13/2025 End: 13-64-3980Ijliiout for paracentesis and insertion of tube of Peritoneum ABDOM PARACENTESIS DX/THER W IMAGING GUIDANCE Endoscopy Routine Shortness of breath Liver transplant candidate 1 Occurrences starting 04/29/2024 until 04/29/2025[facility] HospitalComment on above:1 Occurrences starting 04/29/2024 until 04/29/2025 End: 35-83-1195Slpqsyrr for paracentesis and insertion of tube of Peritoneum ABDOM PARACENTESIS DX/THER W IMAGING GUIDANCE Endoscopy Routine Other ascites 1 Occurrences starting 05/24/[address] [place] [address] Work Phone: Comment on above:1 Occurrences starting 05/24/2024 until 05/24/2025 End: 87-70-6783Krcosyet for paracentesis and insertion of tube of Peritoneum ABDOM PARACENTESIS DX/THER W IMAGING GUIDANCE Endoscopy Routine Other ascites Every other week for 12 Occurrences starting 06/11/2024 until 06/11/2025 [facility] Work Phone: Comment on above:Every other week for 12 Occurrences starting 06/11/2024 until 06/11/2025Guidance for percutaneous biopsy of Bone [facility] Work Phone: Comment on above:Ordered: 07/25/2024Guidance for thoracentesis of ChestIMAGING GUIDED THORACENTESIS Radiology Routine Pleural effusion associated with hepatic disorder Ordered: 5[facility] Work Phone: Comment on above:Ordered: 04/29/2024Hepatitis B virus surface Ab [Presence] in SerumMercy HealthHekaiser foundation hospital B virus surface Ag [Presence] in Serum or Plasma by ImmunoassayMercy HealthHekaiser foundation hospital C virus IgG Ab [Presence] in Serum or Plasma by ImmunoassayMercy Health End: 39-04-9172MCZP DIFFUSION CAPACITY (DLCO)LUNG DIFFUSION CAPACITY (DLCO) PFT Routine Pleural effusion associated with hepatic disorder 1 Occurrences starting 05/23/2024 until 06/22/2025[facility] HospitalComment on above:1 Occurrences starting 05/23/2024 until 06/22/2025LUNG DIFFUSION CAPACITY (DLCO)LUNG DIFFUSION CAPACITY (DLCO) PFT Routine Pleural effusion associated with hepatic disorder 05/31/2024 7:57 AM [facility] Work Phone: MANUAL DIFFERENTIAL, BODY FLUIDMANUAL DIFFERENTIAL, BODY FLUID Lab Routine Shortness of breath Liver transplant candidate 05/01/2024 10:43 AM [facility] ClinicMAN[facility] DIFFERENTIAL, BODY FLUIDMANUAL DIFFERENTIAL, BODY FLUID Lab Routine Other ascites 05/31/2024 9:30 AM [facility] Work Phone: Mitochondria M2 IgG Ab [Units/volume] in Serum [facility] End: 38-33-6754MP Cervical spine WO and W contrast IVMRI CERVICAL SPINE WO/W IVCON Radiology Routine Low back pain, unspecified back pain laterality, uns pecified chronicity, unspecified whether sciatica present 1 Occurrences starting 05/18/2024 until 06/17/2025[facility] ClinicComment on above:1 Occurrences starting 05/18/2024 until 06/17/2025 End: 04-23-6242VE Lumbar spine WO and W contrast IVMRI LUMBAR SPINE WO/W IVCON Radiology Routine Low back pain, unspecified back pain laterality, unspecified chronicity, unspecified whether sciatica present 1 Occurrences starting 05/18/2024 until 06/17/2025[facility] ClinicComment on above:1 Occurrences starting 05/18/2024 until 06/17/2025 End: 08-20-3290QZ Thoracic spine WO and W contrast IVMRI THORACIC SPINE WO/W IVCON Radiology Routine Low back pain, unspecified back pain laterality, uns pecified chronicity, unspecified whether sciatica present 1 Occurrences starting 05/18/2024 until 06/17/2025[facility] ClinicComment on above:1 Occurrences starting 05/18/2024 until 06/17/2025 End: 47-07-6907FV Thoracic spine WO contrastMRI THORACIC SPINE WO IVCON Radiology Routine Pathological fracture, other site, initial encounter for fracture 1 Occurrences starting 06/10/2024 until 07/10/2025[facility] Work Phone: Comment on above:1 Occurrences starting 06/10/2024 until 07/10/2025MR Thoracic spine WO contrastMRI THORACIC SPINE WO IVCON Radiology Routine Pathological fracture, other site, initial encounter for fracture 07/05/2024 6:46 PM [facility] Work Phone: Patient EducationThe Jewish Hospital Work Phone: Patient referralMccullough-[facility]de [facility] Work Phone: End: 52-23-5925YG panel - Platelet poor plasma by Coagulation assayPROTHROMBIN TIME Lab Routine Cirrhosis of liver without ascites, unspecified hepatic cirrhosis type(HCC) Once per month for 12 Occurrences starting 05/14/2024 until 05/14/2025[facility] ClinicComment on above:Once per month for 12 Occurrences starting 05/14/2024 until 05/14/2025SPIROMETRY WITH DILATOR IF OBSTRUCTED SPIROMETRY WITH DILATOR IF OBSTRUCTED PFT Routine Dyspnea, unspecified type 05/23/2024 10:31 AM [facility] Work Phone: End: 85-68-9663IACBKNNEME WITH DILATOR IF OBSTRUCTEDSPIROMETRY WITH DILATOR IF OBSTRUCTED PFT Routine Pleural effusion associated with hepatic disorder1 Occurrences starting 05/23/2024 until 06/22/2025[facility] Work Phone: Comment on above:1 Occurrences starting 05/23/2024 until 06/22/2025SPIROMETRY WITH DILATOR IF OBSTRUCTEDSPIROMETRY WITH DILATOR IF OBSTRUCTED PFT Routine Pleural effusion associated with hepatic disorder 05/31/2024 7:57 AM [facility] Work Phone: [facility] Lab Routine 11/19/2024 2:45 PM [facility] End: 23-40-2249SG Pelvis limitedUS PELVIS LTD Radiology Routine Unilateral inguinal hernia without obstruction or gangrene, recurrence not specified 1 Occurrences starting 05/30/2024 until 06/29/2025[facility] Work Phone: Comment on above:1 Occurrences starting 05/30/2024 until 06/29/2025 End: 15-76-0357GI THORACENTESIS (POC) H23 USE ONLYUS THORACENTESIS (POC) H23 USE ONLY Imaging Procedures Routine ONCE for 1 Occurrences starting 05/30/[address] [facility] Work Phone: comment on above:ONCE for 1 Occurrences starting 05/30/2024 until 05/30/2024 Immunizations Immunization DateImmunizationNotesCare WyaxwcgcKfatqlnm84-67-2176ctrtlipia A vaccine, adult dosageVenus Aden DMD Work Phone: [facility] HospitalKumkag22-52-5127Gdqezjubj B vaccine (recombinant), CpG adjuvantedVenus Aden DMD Work Phone: [facility] HospitalHwxhmo14-79-6908pywnawwwa A and hepatitis B vaccineGeneric ProviderGeneral [facility] Army Community HospitalBkjfyfniix62-26-5559Fuaddtzte B vaccine (recombinant), CpG adjuvantDavid MALDONADO Work Phone: [facility] HospitalAwhaielvza95-23-4773JZU, recombinant, protein subunit RSVpreF, adjuvant reconstitu, 120mcg/0.5mL, PF (Arexvy)Xuan MALDONADO Work Phone: NOMadison Medical CenterGydutoxhla06-15-7157kafkvertq A vaccine, adult dosageJade Arora MD Work Phone: [facility] HospitalRvfjed00-01-1867Gwxddrbam B vaccine (recombinant), CpG adjuvantedJade Arora MD Work Phone: [facility] HospitalKwteyk30-58-7752rgmivosae, high dose seasonal, preservative-freeTransplant PharmacistHolmes County [facility] Hospital11-18-2024 pneumococcal conjugate (PCV20) vaccine, 20 valent (PREVNAR 20)Transplant PharmacistHolmes County Joel Pomerene Memorial HospitalVjodgq27-36-8685nvxbkewratbs conjugate vaccine, 7 valent Generic ProviderGeneral [facility] Community HospitalTahqidkkas94-83-1752nhtpnmxuy virus vaccine, unspecified formulationGeneric ProviderGeneral [facility] HospitalIgvprijxsw99-59-2898hvfqrrfel virus vaccine, unspecified formulationPaCompassMed [facility] [place] 519740-10-2023Influenza, Seasonal, Quadrivalent, AdjuvantedGeneric Provider [facility] HospitalPsvvejpldk91-83-3904xnqaef vaccine recombinantFredric Itzkowitz DO Work Phone: [facility] HospitalTytzqegbeq14-31-6920lviomrt toxoid, reduced diphtheria toxoid, and acellular pertussis vaccine, adsorbedFredric Itzkowitz DO Work Phone: [facility] HospitalPkarsysnqb53-86-6822jnswsognz virus vaccine, unspecified formulationTidy Books [facility] [place] 519740-18-2022influenza, high dose seasonal, preservative-freeFredric Itzkowitz DO Work Phone: [facility] HospitalXitqehjivb40-29-9826qlquwmjer virus vaccine, unspecified formulationPatrick ARRIAZA [facility] [place] 519741-03-2021influenza, high dose seasonal, preservative-freeFredric Itzkowitz DO Work Phone: [facility] HospitalCimaeqqtzp77-95-8195czxrtvcwn, injectable, quadrivalent, contains preservativeShelli Boo APRN.QUALITY CONTROL ASSOCIATE Work Phone: [facility] HospitalYfefby68-16-7571ekiodgihn, injectable, quadrivalent, preservative freeAmy Vick [facility]10-30-2017 influenza virus vaccine, unspecified formulationPaCompassMed [facility] [place] 519740-30-2017influenza, injectable, quadrivalent, contains preservative Brayan Itzkowitz DO Work Phone: [facility] HospitalThbfaycgda17-14-4522mcuhqifij, injectable, quadrivalent, contains preservativeAmy Vick [facility]10-17-2016 influenza virus vaccine, unspecified formulationPaCompassMed [facility] Hospitaly10-17-2016influenza, seasonal, injectableFredric Itzkowitz DO Work Phone: [facility] HospitalDruwslrxje12-94-0914sqwquu vaccine, liveFredric Itzkowitz DO Work Phone: [facility] HospitalUwhbfyboqb07-71-6294jmcqnjuwm virus vaccine, unspecified formulationPaCompassMed [facility] Hospitaly10-27-2015influenza, seasonal, injectableFredric Itzkowitz DO Work Phone: [facility] HospitalKhoblggqrn45-13-1314jdjbdhozu virus vaccine, unspecified formulationPaCompassMed [facility] Hospitaly09-30-2014influenza, seasonal, injectableFredric Itzkowitz DO Work Phone: [facility] HospitalWztovttunh04-50-7055brfyepfnc virus vaccine, unspecified formulationFredric Itzkowitz DO Work Phone: [facility] Payers DatePayer CategoryPayerPolicy [id number] or OtherSELECT MEDICAL [id number] Medicare (Managed Care)[employer] MEDICARE Member Subscriber Plan / Payer (Effective 2024-Present) Name: Loyd Blandon Relation to Subscriber: Self Name: Loyd Blnadon Payer ID: 1 (NAIC) Type: PPO Address: [address] [place] [id number] MEDICARE ADVANTAGE [id number] 2022Medicare [id number] Health Insurance [id number] 2.16.840.1.913302.3.57[id number] 2.16.840.1.659576.3.57[id number] 2..840.1.832176.3.57[id number] 2..840.1.177584.3.57[id number] 2.16.840.1.789939.3.57[id number] 2.16.840.1.523418.3.57[id number] 2.16.840.1.659825.3.57[id number] 2.16.840.1.847356.3.57[id number] 2.16.840.1.614511.3.57[id number] 2.16.840.1.902488.3.57[id number] 2.16.840.1.545802.3.57[id number] 2.16.840.1.912057.3.579.2.1259Unknown 1.2.840.044205.1.13.159.2.7.[id number] 2.16.840.1.9[id number] 2.16.840.1.784992.3.579.2.531 [id number] 2.16.840.1.4[id number] 2.16.840.1.1[id number] 2.16.840.1.127324.3.579.2.531 [id number] 2.16.840.1.260652.3.579.2.490Ikwcyrm3V09ZU4TM99 Social History DateTypeDetailFacilityStart: 09-21-2022 End: 51-66-5343Nemmhml smoking status NHISEx-smoker (finding)[facility] Hospitaltart: 76-52-8334Mqz Assigned At [facility]tart: 05-18-2023 End: 71-33-1915Feh [facility]igned At [facility] Centertart: 02-18-1971 End: 27-41-6503Hajrloo of tobacco useCurrent smokerNOMS HealthcareStart: 02-18-1971 End: 23-62-8420Ezukamw of tobacco useCigarette SmokerNOMS HealthcareStart: 11-17-2022 End: 20-52-7514Mrwckew use and exposureSmokeless tobacco non-userNOMS Healthcare Start: 05-18-2023 End: 12-28-7757Feglsqq of Social functionNOMS HealthcareStart: 01-98-3817Hjm Assigned At BirthNot on fileNOMS HealthcareTobacco smoking statusNo Smoking Status EnteredExecutive Urology of [facility] Start: 12-13-2023 End: 56-49-0699Lcqsjfqhn beverage intakeCurrent drinker of alcohol (finding)[facility] HealthcareStart: 03-18-2012 End: 51-81-4037Hiv often do you need to have someone help you when you read instructions, pamphlets, or other written material from your doctor or pharmacy [SILS]RarelyNOMS HealthcareDo you belong to any clubs or organizations such as mormonism groups, unions, fraternal or athletic groups, or [...] before (I/we) got money to buy more.Never trueNOSD HealthcareStart: 71-48-9410Hqccids Comment2-3 times per week, 1-2 drinks at a time[facility] HealthcareStart: 59-19-9267Fgzmcd identityIdentifies as male gender (finding)[facility] HealthcareStart: 81-99-7206Tuutyyl Comment1-2 drinks nightlyChighland district hospital ClinicStart: 00-73-7430Mxpthd orientationHeterosexual (finding) [facility]: 05-[facility]-2024 End: 38-24-0821Cymsnbneh beverage intakeEx-drinker (finding)[facility] Start: 06-19-2024 End: 44-46-5886MxpKxpw (finding)[facility] HealthHow often do you need to have someone help you when you read instructions, pamphlets, or other written material from your doctor or pharmacy [SILS][facility]ly[facility] Healthcare Start: 17-29-1047Nccbvyp CommentRecovering alcoholicHolmes County [facility] Medical Equipment Procedure CodeEquipment CodeEquipment Original TextEquipment IdentifierDatesMesh Srg Parietex 15cm [facility] - [id number]: 43-78-9406Cfycihh on above:Description: parietex composite meshStent Orgas Viabil 10mm Metal 100mm 200cm Endoprosthesis No Hole Full Cover - [id number]: 10-15-2024 Comment on above:Description: Static magnetic field of 1.5 and 3.0 Rosita Maximum spatial gradient of 3,000 Gauss/cm Maximum MR system reported, whole body averaged specific absorption rate (MARTA) of 4 W/kgGraft Infuse 20ga Medium Bovine Collagen Rhbmp-2 2x1in Bone Vial Absorbable - [id number]: 89-60-9246Mafeg Bone Sub 10cc Dbm Putty Inert Reverse Phase Carrier Osteosparx - [id number]: 05-81-6304Blzch Bone 30cc 1mm-4mm Range Granules Cancellous Crushed - [id number]: 17-98-1212Cycza Erica 3 Titanium Set Connie Spine - [id number]: 71-69-2930Crx Erica 3 6mm 480mm Spinal - [id number]: 88-15-7285Blcve Erica 3 Gamez 6.5mm 50mm Bone Polyaxial Nonsterile Spine - [id number]: 79-73-2942Gbrau Erica 3 Gamez 7.5mm 50mm Bone Polyaxial Nonsterile Spine - [id number] Start: 43-51-9206Zdasg Erica 3 Gamez 8.5mm 50mm Bone Polyaxial Nonsterile Spine [id number]: 65-69-4198Kiifi Erica 3 Gamez 9.5mm 50mm Bone Polyaxial Nonsterile [id number]: 72-86-7696Boiri 10fr Duodenal Bend Plastic 12cm Biliary Temporary Rapid Exchange - [id number]: 12-19-2024 Goals DatePatient GoalDesired Activity/StatePersonal health goalPersonal health goal Functional Status WhicKxehjeahatJscjleXuijkcwl20-61-4036Weofopt Health Questionnaire 2 item (PHQ- 2) [Reported][facility] HospitalYshlqtpvsq03-26-7744Cov you deaf, or do you have serious difficulty hearingNo 05/31/2024 4:27 PM Cecil Peña RN [facility] AvonAdjgnk79-97-0124Gvd you blind, or do you have serious difficulty seeing, even when wearing glassesNo 05/31/2024 4:27 PM Cecil Peña RN NoCThe Bellevue HospitalKuoopm40-62-7167Rz you have serious difficulty walking or climbing stairsNo 05/31/2024 4:27 PM Cecil Peña RN NoCThe Bellevue HospitalAvpavx16-89-6290Fk you have difficulty dressing or bathingNo 05/31/2024 4:27 PM Cecil Peña RN NoCThe Bellevue HospitalEeidxx34-42-0116Tmmuptj of a physical, mental, or emotional condition, do you have difficulty doing errands alone such as visiting a physician's office or shoppingNo 05/31/2024 4:27 PM Cecil Peña RN [facility]hillIfrfge51-20-9434Hbdeeyo Health Questionnaire 2 item (PHQ-2) [Reported] [facility] HospitalIzzkmbnipb31-09-6511Jawgfrc falling or staying asleep, or sleeping too much Not at all 05/15/2024 2:34 PM EST Mychart, Generic Not at allGeneral [facility] 73-64-8283Kiejfnv tired or having little energySeveral days 05/15/2024 2:34 PM EST Mychart, Generic [facility] HospitalQhzfckbpsf98-89-6628Scvw appetite or overeatingSeveral days 05/15/2024 2:34 PM EST Mychart, Generic [facility] HospitalSavyibtzga45-01-4246Xrlislr bad about yourself-or that you are a failure or have let yourself or your family downNot at all 05/15/2024 2:34 PM EST Mychart, Generic Not at allGeneral [facility] HospitalYsxxetppnu11-02-6225Cubexhf concentrating on things, such as reading the newspaper or watching televisionSeveral days 05/15/2024 2:34 PM EST Mychart, Generic [facility] HospitalIjriyswfvy64-16-4495Ktsxiu or speaking so slowly that other people could have noticed. Or the opposite - being so fidgety or restless that you have been moving around a lot more than usualNearly every day 05/15/2024 2:34 PM EST Mychart, Generic Nearly every dayGeneral [facility] Hospital 07-43-0072Oinewxwm that you would be better off , or of hurting yourself in some wayNot at all 05/15/2024 2:34 PM EST Mychart, Generic Not at allGeneral [facility] Army Community HospitalRdtbuboubr44-50-9973Xiugr score [AUDIT-C]0 12/12/2023 1:46 PM EDT Mychart, GenericGeneral [facility] Army Community HospitalVjlmddvaaw21-40-1115Frl often do you have a drink containing alcohol?Never 12/12/2023 1:46 PM EDT [facility], Generic [facility] 79-49-5615Mpopnauwah statusPatient does not drink 12/12/2023 1:46 PM EDT Mychar, Generic Patient does not drinkGeneral Leonard Wood Army Community HospitalUtxqlzlpac12-07-9285Vmj often do you have 6 or more drinks on 1 occasion?Never 12/12/2023 1:46 PM EDT Mychart, Generic [facility] HospitalOgauhxetly87-45-1565Yjk you deaf, or do you have serious difficulty hearingNo 08/28/2014 2:34 PM Bebe Gutierrez MA [facility]05-14-2015Are you blind, or do you have serious difficulty seeing, even when wearing glassesNo 08/28/2014 2:34 PM Bebe Gutierrez MA [facility]05-14-2015Do you have serious difficulty walking or climbing stairsNo 08/28/2014 2:34 PM Bebe Gutierrez MA [facility] [place]05-14-2015Do you have difficulty dressing or bathingNo 08/28/2014 2:34 PM Bebe Gutierrez MA [facility], AvonJriels81-61-4590Jvlkhof of a physical, mental, or emotional condition, do you have difficulty doing errands alone such as visiting a physician's office or shoppingNo 08/28/2014 2:34 PM Bebe Gutierrez MA [facility] Mental Status MqzaAwborcdnbxSasrtxAkitmfhz05-24-8883Ukxkgoj of a physical, mental, or emotional condition, do you have serious difficulty concentrating, remembering, or making decisionsNo 05/31/2024 4:27 PM Cecil Peña RN [facility], AvonIdudvv73-79-2279Nmbvaze of a physical, mental, or emotional condition, do you have serious difficulty concentrating, remembering, or making decisionsNo 08/28/2014 2:34 PM Bebe Gutierrez MA [facility] Clinical Notes 09-21-2022 to 02-18-2025 Note Date & DuqnJubiPqblkxll96-39-[address] [facility]10-29-[address] [facility]10-27-[address] [facility] 01-28-[address] [facility]10-10-2025 NoteHNO ID: [id number] Author: EFREN TLILEY RT(R) Service: Radiology Author Type: Technologist Type: [...] PATIENT PRESENTS WITH AN IMPLANTABLE OR ATTACHED SHEET ROCK SANDER: No RADIOLOGY DEPARTMENT: CT; Exam(s) Completed: Spine . Anesthesia: No PERIPHERAL IV DATA: Not applicable SIGNED BY: RT Eliana(R) January 24, 2025 2:[address] [facility] HospitalUamylmhx00-97-[address] [facility] 01-13-[address] [facility]09-28-[address] [facility]09-27-[address] [facility]09-26-[address] [facility]09-26-[address] [facility]09-26-[address] [facility]09-25-[address] [facility]09-24-[address] [facility]09-24-[address] [facility] 01-07-[address] [facility]09-23-[address] [facility]09-23-[address] [facility]09-23-[address] [facility]09-22-[address] [facility]09-21-[address] [facility]09-20-[address] [facility]09-20-[address] [facility]09-20-2025 NoteHNO ID: [id number] Author: KEI NUNEZ, RN Service: Nursing Author Type: Registered Nurse Type: Progress Notes Filed: 01/04/2025 04:55 Note Text: dental service technician stated to hold tube feed at 6am.[facility]09-19-[address] [facility]08-06-2025 Telephone encounter Note* Telephone Encounter - Carina Ziegler RN - 11/20/2024 10:19 AM EDT I spoke with Dr No, r/w him recent admit for this L superior/inferior pubic ramus fracture and plan for pt to be admitted for rehab. D/w him preference now to have him go back to [facility](he will d/w the care coord/SW team and I sent Dr Cruz and our LINDA Lakisha Boo, a text regarding this plan). I also r/w him the labs that we would need until he is sent to rehab for continuationof care. 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 D/w him preference now to have him go back to [facility](he will d/w the care [facility]/SW team and I sent Dr Cruz and our LINDA Lakisha Boo, a text regarding this plan). I also r/w him the labs that we would need until he is sent to rehab for continuationof care. Carina Ziegler RN (Molly), BSN, [facility] Liver Railway Traction Line Worker * Telephone Encounter - Lee Ann Redmond - 11/19/2024 4:[address] No called to provide an update on the patient. I confirmed with him whether it was an emergency, and he stated it was NOT. He can be reached at the number below at any time Requesting a return call from the digital account coordinator. Please call him at [phone] .. Lee Ann Redmond documented in this encounterHolmes County [facility]08-05-2025 Telephone encounter Note * Telephone Encounter - Lee Ann Redmond - 11/19/2024 4:[address] No called to provide an update on the patient. I confirmed with him whether it was an emergency, and he stated it was NOT. He can be reached at the number below at any time Requesting a return call from the digital account coordinator. Please call him at [phone] .. Lee Ann Redmond [facility]08-05-2025 Telephone encounter Note* Telephone Encounter - [...] me posted CarinaFahad) Benedict Ziegler RN, BSN, [facility] Liver [employer] Traction Line Worker [facility]08-05-2025 Miscellaneous Notes* Telephone Encounter - Carina [...] me posted CarinaFahad) Benedict Ziegler RN, BSN, [facility] Liver Railway Traction Line Worker * Telephone Encounter - Cinthia Bishop - 11/18/2024 11:25 AM EDT Fabiana called in stating that she is returning Tara's call. Fabiana is requesting a call back at [phone]. documented in this encounterHolmes County [facility]08-04-2025 Telephone encounter Note * Telephone Encounter - Cinthia Bishop - 11/18/2024 11:25 AM EDT Fabiana called in stating that she is returning Tara's call. Fabiana is requesting a call back at [phone]. [facility] Work Phone: [phone] Telephone encounter Note* Telephone Encounter - Carina Ziegler RN - 11/18/2024 10:48 AM EDT Called and l/m for pt's to call back with [facility] Carina Ziegler RN (Molly), BSN, [facility] Liver Railway Traction Line Worker [facility]08-04-2025 Miscellaneous Notes* Telephone Encounter - Carina Ziegler RN - 11/18/2024 10:48 AM EDT Called and l/m for pt's to call back with updates [facility] Carina Ziegler RN (Molly), BSN, [facility] Liver Railway Traction Line Worker documented in this encounterHolmes County [facility]08-01-2025 History of Present illness Narrative* Mercedez Tobar RPh - 11/15/2024 2:28 PM EDT [facility] OPAT Documentation Note Per orders of Dr. Nicholson honor daptomycin stop date of 11/12. Okay to remove PICC. Per chart review,patient completed daptomycin as planned on 11/12 at [facility], and was discharged from the facility today. Total Time Spent on this Encounter (in minutes): < 5 Mercedez Tobar RPh 11/15/2024 2:28 PM documented in this encounterHolmes County [facility]07-31-2025 History of Present illness Narrative* Jennie [...] +/-, EBV +/+) who I saw at [facility] during his admission from 10/07 to 10/30/24. [...] F/u with ID as needed The digital account coordinator is CCed to this note I personally monitored antibiotics requiring intensive drug monitoring for therapeutic and adverse effects for toxicity. I spent a total of 37 minutes on the date of the service which included preparing to see the patient, bmra-vd-gkzy patient care, completing clinical documentation, obtaining and/or reviewing separately obtained history, performing a medically appropriate examination, and counseling and educating the patient/family/caregiver. Jennie Nicholson M.D. Staff, Infectious Disease [facility] Thank you for allowing us to contribute to this patient's care. Please call with questions. Case findings/test results and suggestions discussed with the requesting physician via the shared electronic medical record documented in this encounterHolmes County [facility]07-30-2025 Nurse Note* Kassie Pimentel RN - 11/13/2024 5:42 PM EDT [facility]enny Payan's transport picked up pt to transport back to [facility]. [facility]07-30-2025 Nurse Note* Kassie Pimentel RN - 11/13/2024 5:42 PM EDT [facility] Payan[facility] transport picked up pt to transport back to [facility]. * Kassie Pimentel RN - 11/13/2024 3:54 PM EDT Report called to [facility]. Per Benny Alatorre, slat pickler approximately 90 mins from 15:40 pm. * [...] RN In Department: GASTROENTEROLOGY documented in this encounterHolmes County [facility]07-30-2025 Nurse Note* Kassie Pimentel RN - 11/13/2024 3:54 PM EDT Report called to [facility]. Per Benny Alatorre, slat pickler approximately 90 mins from 15:40 pm. [facility]07-30-2025 Nurse Note* Kassie Pimentel RN - [...] None Electronically Signed By: Kassie Pimentel RN [facility]07-30-2025 NoteQ3 Patient Name: Loyd Blandon Procedure Date: 11/13/2024 1:11 PM Date of : 1955 Admit Type: Outpatient Age: 69 Gender: Male Note Status: Finalized Attending MD: Jane Correia MD, [id number] Procedure: ERCP Indications: Common bile duct stone(s), [...] administered by the anesthesia team. Findings: A grading clerk film of the abdomen was obtained. Surgical [...] 3 months. Procedure Code(s): --- Professional --- 77159, Endoscopic retrograde cholangiopancreatography (ERCP); with removal of calculi/debris from biliary/pancreatic duct(s) 68439, Endoscopic catheterization of the biliary ductal syste (more content not included)...[id number] NoteQ3 Patient Name: Loyd Blandon Procedure Date: 11/13/2024 1:11 PM Date of : 1955 Admit Type: Outpatient Age: 69 Gender: Male Note Status: Finalized Attending MD: Jane Correia MD, [id number] Procedure: ERCP Indications: Common bile duct stone(s), [...] administered by the anesthesia team. Findings: A grading clerk film of the abdomen was obtained. Surgical [...] 3 months. Procedure Code(s): --- Professional --- 78542, Endoscopic retrograde cholangiopancreatography (ERCP); with removal of calculi/debris from biliary/pancreatic duct(s) 12963, Endoscopic catheterization of the biliary ductal syste (more content not included)...[id number] Nurse Note* Jose Juan Schuster RN - [...] Jose Juan Schuster RN In Department: GASTROENTEROLOGY [facility]07-30-2025 History and physical note* Bebo Barker [...] 13, 2024 TIME: 2:26 PM Created 2023 [facility] Work Phone: [phone] History and physical note* Bebo Barker MD [...] 2:26 PM Created 2023 documented in this encounterHolmes County [facility]07-29-2025 Telephone encounter Note * Telephone Encounter [...] electronically send to pharmacy. Carina Ziegler RN [facility]07-29-2025 Miscellaneous Notes* Telephone Encounter - Carina [...] pharmacy. Carina Ziegler RN documented in this encounterHolmes County [facility]07-29-2025 Telephone encounter Note * Telephone Encounter - Ceci Valencia RN - 11/12/2024 1:19 PM EDT RN infant childcare provider placed return call to [facility] per [...] was ended. MELISSA Webster, RN Specialty Nurse Preforms Laminator Digestive Disease [facility]07-29-2025 Miscellaneous Notes* Telephone Encounter - Ceci Valencia RN - 11/12/2024 1:19 PM EDT RN infant childcare provider placed return call to [facility] per request. Spoke with Lisa who [...] was ended. MELISSA Webster, RN Specialty Nurse Preforms Laminator Digestive Disease documented in this encounterHolmes County [facility]07-25-2025 Progress note* Result Encounter Note - Carina Ziegler RN - 11/08/2024 1:29 PM EDT Reviewed liver transplant results and followed by [facility] staff-tacro level better. They are followingscr Carina Ziegler RN (Molly), BSN, [facility] Liver Railway Traction Line Worker [facility]07-25-2025 Miscellaneous Notes* Result Encounter Note - Carina Ziegler RN - 11/08/2024 1:29 PM EDT Reviewed liver transplant results and followed by [facility] staff-tacro level better. They are followingscr Carina Ziegler (Molly) RN, BSN, [facility] Liver Railway Traction Line Worker * Result Encounter Note - Eva Dhillon RN - 10/31/2024 2:29 PM EDT Standing labs reviewed, c/w recent lab values. CRP slightly improved. BNP per [facility]. No changes to current POC at this time. MELISSA Vásquez, RN, [facility] Liver Railway Traction Line Worker documented in this encounterHolmes County [facility]07-24-2025 History of Present illness Narrative* Say Maldonado RPh - 11/07/2024 10:42 AM EDT [facility] OPAT Documentation Note OPAT Pharmacist Lab [...] RPh 11/07/2024 10:42 AM documented in this encounterHolmes County [facility]07-17-2025 Progress note* Result Encounter Note - Eva Dhillon RN - 10/31/2024 2:29 PM EDT Standing labs reviewed, c/w recent lab values. CRP slightly improved. BNP per [facility]. No changes to current POC at this time. MELISSA Vásquez, RN, [facility] Liver Railway Traction Line Worker [facility]07-17-2025 History of Present illness Narrative* Say Maldonado [facility] - 10/31/2024 12:14 PM EDT Infectious Diseases Outpatient Parenteral Antimicrobial Therapy Pharmacist Review Patient, Loyd Blandon ([id number]), was reviewed by an OPAT pharmacist and [...] any questions, please contact Mercedez Tobar at [phone] or Jeanne Maldonado (ChungYun) at [phone]. Say Maldonado RPh 10/31/2024 12:15 PM * Say Maldonado RPh - 10/31/2024 12:14 PM EDT [facility] OPAT Documentation Note Home Health Agency Name: [facility] Phone #: [phone] Vascular Access: PICC Say Maldonado RPh 10/31/2024 12:18 PM documented in this encounterHolmes County [facility]07-09-2025 History of Present illness Narrative* Jennie Nicholson MD - 10/23/2024 11:26 AM EDT [facility] Outpatient Parenteral Antimicrobial Therapy (OPAT) Start Form Patient Info Patient MRN Patient Name Address Date of [id number] Loyd Blandon [facility] [id number] 1955 Start Date 10/23/2024 Physician Group Cc_main [...] Monitoring Treatment Course Jennie Nicholson MD Address [address] [place] [address] Prescribing Provider's signature - electronically signed by Jennie Nicholson MD on 10/23/24 at 11:28AM documented in this encounterHolmes County [facility]06-23-2025 History and physical note * Carina Ziegler RN - 10/07/2024 4:10 PM EDT Was called by Dr Dias at [facility] and she spoke with LINDA Kathy Ryan CNP about pt c/o slurred speech, sob, fluid overload and plan for pt to be admitted back to for further evaluation and w/u. Carina Ziegler RN (Molly), BSN, [facility] Liver Railway Traction Line Worker [facility]06-23-2025 History and physical note* Carina Ziegler RN - 10/07/2024 4:10 PM EDT Was called by Dr Dias at [facility] and she spoke with LINDA Kathy Ryan CNP about pt c/o slurred speech, sob, fluid overload and plan for pt to be admitted back to for further evaluation and w/u. Carina Ziegler RN (Molly), BSN, [facility] Liver Railway Traction Line Worker documented in this encounterHolmes County [facility]06-23-2025 History of Present illness Narrative* Kathy [...] tumor on explant pathology (cm): 1.4 Calculated Ferris Score: 1 RETREAT score: 1 Surveillance recommendation: MRI abdomen with contrast, non-contrast CT chest, and serum AFP every 6 months for 3 years, then AFP alone every 6 months until 5 years post-transplantation. Kathy Ryan APRN.CNP October 01, 2024 documented in this encounterHolmes County [facility]06-23-2025 History of Present illness Narrative* Kaylen [...] PATIENT PRESENTS WITH AN IMPLANTABLE OR ATTACHED SHEET ROCK SANDER: No RADIOLOGY DEPARTMENT: CT; Exam(s) Completed: Abdomen/Pelvis and Brain PERIPHERAL IV DATA: Not applicable SIGNED BY: RT Rob(R) October 07, 2024 2:54 PM documented in this encounterHolmes County [facility]06-23-2025 NoteHNO ID: [id number] Author: KAYLEN LADD RT(R) Service: Radiology Author Type: Transfer Controller Type: Progress Notes Filed: 10/07/2024 14:55 Note [...] PATIENT PRESENTS WITH AN IMPLANTABLE OR ATTACHED SHEET ROCK SANDER: No RADIOLOGY DEPARTMENT: CT; Exam(s) Completed: Abdomen/Pelvis and Brain PERIPHERAL IV DATA: Not applicable SIGNED BY: RT Rob(R) October 07, 2024 2:54 PMATimpanogos Regional HospitalPdgxzxoh95-31-3319 Telephone encounter Note* Telephone Encounter - Carina Ziegler RN - 10/03/2024 5:35 PM EDT I called and updated on orders being entered for staple removal by the [facility] staff and she was upset that it had not been done by our team or the staff at [facility]. I informed her that I will discussthe issue with the staff at our [facility] meeting tomorrow. Carina Ziegler (Molly) RN, BSN, [facility] Liver Railway Traction Line Worker [facility]06-19-2025 Miscellaneous Notes* Telephone Encounter - Carina Ziegler RN - 10/03/2024 5:35 PM EDT I called and updated on orders being entered for staple removal by the [facility] staff and she was upset that it had not been done by our team or the staff at [facility]. I informed her that I will discussthe issue with the staff at our [facility] meeting tomorrow. Carina Ziegler RN (Molly), BSN, [facility] Liver Railway Traction Line Worker * Telephone Encounter - Carina Ziegler RN - 10/03/2024 1:36 PM EDT I have called to Celine and d/w our QUALITY CONTROL ASSOCIATE about the orders for staple and suture removal that she d/w them on Monday. Carina Ziegler RN (Molly), BSN, [facility] Liver Railway Traction Line Worker * Telephone Encounter - Mary Underwood - 10/03/2024 8:59 AM EDT Fabiana called regarding speaking with an [place] that stated the pt's sutures should come out, but chayito spoke with the nurses at the rehab center stated that they do not have nay orders. . Requesting a return call from the digital account coordinator. Please call Fabiana at [phone]. Mary Blackman documented in this encounterHolmes County [facility]06[facility] Telephone encounter Note * Telephone Encounter - Carina Ziegler RN - 10/03/2024 1:36 PM EDT I have called to Celine and d/w our QUALITY CONTROL ASSOCIATE about the orders for staple and suture removal that she d/w them on Monday. Carina Ziegler RN (Molly), BSN, [facility] Liver Railway Traction Line Worker [facility]06-19-2025 Telephone encounter Note* Telephone Encounter - Mary Underwood - 10/03/2024 8:59 AM EDT Fabiana called regarding speaking with an [place] that stated the pt's sutures should come out, but chayito spoke with the nurses at the rehab center stated that they do not have nay orders. . Requesting a return call from the digital account coordinator. Please call Fabiana at [phone]. Mary Blackman [facility]06-18-2025 Telephone encounter Note* Telephone Encounter - Barbara Bella - 10/02/2024 3:33 PM EDT Accidentally routed to [facility] [place]. I re-routed to [employer] so they can work wt this request [facility]06-18-2025 Miscellaneous Notes* Telephone Encounter - Barbara Bella - 10/02/2024 3:33 PM EDT Accidentally routed to [facility] [place]. I re-routed to [employer] so they can work wt this request documented in this encounterHolmes County [facility]06-17-2025 Progress note* Result Encounter Note - Carina Ziegler RN - 10/01/2024 2:38 PM EDT Reviewed liver transplant results and stable-r/w team at [facility] f/u call today Carina Ziegler RN (Molly), BSN, [facility] Liver Railway Traction Line Worker [facility]06-17-2025 Miscellaneous Notes* Result Encounter Note - Carina Ziegler RN - 10/01/2024 2:38 PM EDT Reviewed liver transplant results and stable-r/w team at [facility] f/u call today Carina Ziegler RN (Molly), BSN, [facility] Liver Railway Traction Line Worker documented in this encounterHolmes County [facility]06-04-2025 Telephone encounter Note * Telephone Encounter [...] this Monday. Carina Ziegler RN (Molly), BSN, [facility] Liver Railway Traction Line Worker [facility]06-04-2025 Miscellaneous Notes* Telephone Encounter - Carina [...] this Monday. Carina Ziegler RN (Molly), BSN, [facility] Liver Railway Traction Line Worker documented in this encounterHolmes County [facility]05-27-20[facility] History of Present illness Narrative* Jadyn Vázquez RN - 09/10/2024 8:35 AM EDT DONOR ID: [id number] MATCH RUN: [id number] Type of Donor: DCD At risk donor: No Liver pumped: OrganOx TRANSPLANT SEROLOGIES: CMV IgG: Donor Positive/ Recipient Negative 04-29-24 EBV IgG: Donor Positive/ Recipient Positive Donor has tested positive for COVID: No Jadyn Vázquez RN, BSN, [facility] Liver Railway Traction Line Worker documented in this encounterHolmes County [facility]05-[facility]-2025 Note SARS-COV-2 (AGENT OF COVID-19) RNA: Not detected [facility] [id number] Telephone encounter Note* Telephone Encounter - Virginia Blevins RRT - 09/08/2024 1:55 PM EDT UNOS: [id number] Match ID: [id number] Called and informed the patient of a [...] these complications.The patient agreed tocome to the [facility] for potential liver transplant. Explained the [...] transplant. Karnofsky Score: 30% Virginia Blevins RRT [facility]05-25-2025 Miscellaneous Notes* Telephone Encounter - Virginia Blevins RRT - 09/08/2024 1:55 PM EDT UNOS: [id number] Match ID: [id number] Called and informed the patient of a [...] these complications.The patient agreed tocome to the [facility] for potential liver transplant. Explained the [...] 30% Virginia Blevins RRT documented in this encounterHolmes County [facility]05-15-2025 Telephone encounter Note * Telephone Encounter - Yesica Bright RN - 08/29/2024 4:10 PM EDT Spoke with Loyd Blandon's Fabiana, advised that his case was discussed and approved pendingcolonoscopy, EGD, and repeat MRI liver at liver transplant selection committee on August 28, 2024. Yesica Bright RN [facility]05-15-2025 Miscellaneous Notes* Telephone Encounter - Yesica Bright RN - 08/29/2024 4:10 PM EDT Spoke with Loyd Blandon's Fabiana, advised that his case was discussed and approved pendingcolonoscopy, EGD, and repeat MRI liver at liver transplant selection committee on August 28, 2024. Yesica Bright RN documented in this encounterHolmes County [facility]05-14-20[facility] History of Present illness Narrative* Venus Aden DMD - 08/28/2024 3:26 PM EDT STAFF NOTE: See inpatient note for this encounter on 08/28/2024. Venus Aden DMD * Kaylen Hale DMD - 08/28/2024 10:23 AM EDT See inpatient note for this encounter. Kaylen Hale DMD August 28, 2024 10:23 AM documented in this encounterHolmes County [facility]05[facility] History of Present illness Narrative* Araceli [...] Mccoy, Mina Transplant Pharmacy Clinical Specialist Pager: [phone] documented in this encounterHolmes County [facility]05-[facility]-20[facility] History of Present illness Narrative* Lis [...] recommendations and plan. WILBERT Norris-S, [facility] August 27, 2024 2:13 PM documented in this encounterHolmes County [facility]05-13-2025 Telephone encounter Note * Telephone Encounter - Yesica Bright RN - 08/27/2024 10:39 AM EDT The following information has been provided/discussed with the patient/family during Shared MedicalAppointment education class: Informed Consent for Organ Transplant Program Participation version November 03, 2022. SRTR information provided and questions answered. Informed patient to call digital account coordinator with any questions. UNOS information regarding multiple listings for organ transplantation Evaluation process including presentation to selection committee and listing criteria Surgical procedure, including post-operative management, hospitalization, immunosuppressive medications and their side effects (including the risk for hypertension, diabetes, kidney problems and cancers) and termite helper follow up after transplant. Possibility of recurrent [...] was also addressed Patient's was provided with [facility] information sheet regarding transplantation of Hepatitis C [...] could potentially be read by a third constitution party when sent through the internet (or cellular phone) and desires to receive his protected health information by unencrypted email (or text). INFORMED CONSENT Loyd Blandon Medical Record: [id number] Informed consent for Organ Transplant Program Participation [...] Yesica Bright RN In Department: TRANSPLANT CENTER [facility]05-13-2025 Miscellaneous Notes* Telephone Encounter - Yesica Bright RN - 08/27/2024 10:39 AM EDT The following information has been provided/discussed with the patient/family during Shared MedicalAppointment education class: Informed Consent for Organ Transplant Program Participation version November 03, 2022. SRTR information provided and questions answered. Informed patient to call digital account coordinator with any questions. UNOS information regarding multiple listings for organ transplantation Evaluation process including presentation to selection committee and listing criteria Surgical procedure, including post-operative management, hospitalization, immunosuppressive medications and their side effects (including the risk for hypertension, diabetes, kidney problems and cancers) and long-term follow up after transplant. Possibility of recurrent [...] was also addressed Patient's was provided with [facility] information sheet regarding transplantation of Hepatitis C [...] could potentially be read by a third constitution party when sent through the internet (or cellular phone) and desires to receive his protected health information by unencrypted email (or text). INFORMED CONSENT Loyd Blandon Medical Record: [id number] Informed consent for Organ Transplant Program Participation [...] In Department: TRANSPLANT CENTER documented in this encounterHolmes County [facility]05-08-2025 Telephone encounter Note * Telephone Encounter [...] stairs Significant ascites; missed scheduled paracentesis in [place] on Monday and may miss the upcomingone tomorrow New-onset ankle edema; compression socks are ineffective Plan: Nurse strongly advised that the patient go to the Emergency Department ([facility] ED) due to worsening sx Fabinaa agreed with the plan and will bring the patient to the [facility] ED. Patient/family is aware of transplant board (TB) recommendations: MRI scheduled for 2024 (order needs to be entered; send evocatal message) Presentation to the LTSC committee pending Fabiana agreeable to plan - she will take him to the ED for immediate care Marce Gaitan RN August 22, 2024 4:14 PM [facility]05-08-2025 Miscellaneous Notes* Telephone Encounter - Marce [...] stairs Significant ascites; missed scheduled paracentesis in [place] on Monday and may miss the upcomingone tomorrow New-onset ankle edema; compression socks are ineffective Plan: Nurse strongly advised that the patient go to the Emergency Department ([facility] ED) due to worsening sx Fabiana agreed with the plan and will bring the patient to the [facility] ED. Patient/family is aware of transplant board (TB) recommendations: MRI scheduled for 2024 (order needs to be entered; send NLT SPINEhart message) Presentation to the LTSC committee pending Fabiana agreeable to plan - she will take him to the ED for immediate care Marce Gaitan RN August 22, 2024 4:14 PM * Telephone Encounter - Jaron Chinchilla - 08/22/2024 3:07 PM EDT called in Appears very anxious/nervous States he is failing can barely walk and breathing slow Please review and advise documented in this encounterHolmes [facility]05-08-2025 Telephone encounter Note * Telephone Encounter - Jaron Chinchilla - 08/22/2024 3:07 PM EDT called in Appears very anxious/nervous States he is failing can barely walk and breathing slow Please review and advise [facility]05-06-2025 Nurse Note* Rosalba Zhu RN - [...] have family/friend present for procedure transport home:Patient/patient entry level sales representative was told that if they [...] area. Any barriers to Patient learning: Patient/Patient Supervisor Correspondence Section responded appropriately on phone. Type of instruction given: Verbal by telephone contact. Rosalba Zhu RN [facility]05-06-2025 Nurse Note* Rosalba Zhu RN - [...] have family/friend present for procedure transport home:Patient/patient entry level sales representative was told that if they [...] area. Any barriers to Patient learning: Patient/Patient Supervisor Correspondence Section responded appropriately on phone. Type of instruction given: Verbal by telephone contact. Rosalba Zhu RN documented in this encounterHolmes County [facility]05-05-2025 History of Present illness Narrative* JOEL [...] hyperglycemia, without long-term current use of insulin ([facility]) - Microalbumin / creatinine, urine ratio; Future Ordered urine sample for pt to have completed at his convenience. No follow-ups on file. documented in this encounterGeneral Leonard Wood Army Community [id number] Telephone encounter Note* Telephone Encounter - Virginia Rodríguez RN - 08/14/2024 12:44 PM EDT Will have to speak with GI team, unable to assist per cardiology. [facility]04-30-2025 Miscellaneous Notes* Telephone Encounter - Virginia Rodríguez RN - 08/14/2024 12:44 PM EDT Will have to speak with GI team, unable to assist per cardiology. documented in this encounterHolmes County [facility]04-28-2025 Instructions* Patient Instructions* Dmitri Garg MD [...] am on dialysis? A: Please consult your ship/rec/doc control prior to scheduling to get instructions pertinent [...] rest of the day. documented in this encounterHolmes County [facility]04-16-2025 Telephone encounter Note * Telephone Encounter - Brittaney Mueller - 07/31/2024 1:04 PM EDT External lab orders from [facility] received and scanned. [facility]04-16-2025 Miscellaneous Notes* Telephone Encounter - Brittaney Mueller - 07/31/2024 1:04 PM EDT External lab orders from [facility] received and scanned. documented in this encounterHolmes County [facility]04-15-2025 Telephone encounter Note * Telephone Encounter [...] for this procedure: low risk. Reference from [employer] Cafe Assistant: [email or web address] STAFF SIGNATURE: Lex Galo MD DATE: July 30, 2024 TIME: 2:54 PM [facility] Work Phone: [phone]) 280-215404-15-2025 Miscellaneous Notes* Telephone Encounter - Lex Galo [...] for this procedure: low risk. Reference from [facility] Cafe Assistant: [email or web address] STAFF SIGNATURE: Lex Galo MD DATE: July [...] ALLERGIES No Known Allergies IMAGES: available in [facility] MRI 07/05/24 GUIDELINES FOR HOLDING ANTI-PLATELET AND ANTI- COAGULATION THERAPY: N/A NURSE SIGNATURE: Jeanne Jackson RN DATE: July 30, 2024 TIME: 11:08 AM * Telephone Encounter - Nubia Larsen - 07/30/2024 10:08 AM EDT RADIOLOGY CALL CENTER INTAKE [place] LINE ATTENDANT: 000 EXT: DATE: 07/30/2024 TIME: 10:08 am TRACKING #. [id number] REQUESTING PERSON: Meena PHONE/PAGER: [phone] REQUESTING STAFF: Derrick Harris PHONE/PAGER: [phone] SPECIFICS OF THE REQUEST: (Please be as detailed as possible. If request is lymph node biopsy, specify LOCATION of the node if possible): T-10 ot T12 Vertebrae (For example: biopsy liver mass or biopsy pelvic lymph node ) SPECIAL REQUESTS: TISSUE SAMPLE, LABWORK: N/A -Fine needle aspiration (FNA), core biopsy, no preference, unsure, specific processing request for pathology (For example: send for ER, [place], HER2/kacey or possible lymphoma send in RPMI [...] (If the imaging was obtained outside the [facility] system, then it needs to be submitted for review prior to approval.) Note to all persons requesting biopsies: All biopsy requests will be scheduled as quickly as possible, based on the clinical urgency, availability of appointment times, the need to hold anti-thrombolytic therapy (aspirin, blood thinners) and the patient s schedule, including the need for an available tow bar driver. If a percutaneous biopsy or drainage is not felt to be safe or an alternative method for establishing a diagnosis is possible, this will be discussed directly with the requesting physician. documented in this encounterHolmes County [facility]04-15-2025 Telephone encounter Note * Telephone Encounter [...] ALLERGIES No Known Allergies IMAGES: available in [facility] 07/05/24 GUIDELINES FOR HOLDING ANTI-PLATELET AND ANTI- COAGULATION THERAPY: N/A NURSE SIGNATURE: Jeanne Jackson RN DATE: July 30, 2024 TIME: 11:08 AM [facility]04-15-2025 Telephone encounter Note* Telephone Encounter - Nubia Larsen - 07/30/2024 10:08 AM EDT RADIOLOGY CALL CENTER INTAKE [place] LINE ATTENDANT: 000 EXT: DATE: 07/30/2024 TIME: 10:08 am TRACKING #. [id number] REQUESTING PERSON: Meena PHONE/PAGER: [phone] REQUESTING STAFF: Derrick Harris PHONE/PAGER: [phone] SPECIFICS OF THE REQUEST: (Please be as detailed as possible. If request is lymph node biopsy, specify LOCATION of the node if possible): T-10 ot T12 Vertebrae (For example: biopsy liver mass or biopsy pelvic lymph node ) SPECIAL REQUESTS: TISSUE SAMPLE, LABWORK: N/A -Fine needle aspiration (FNA), core biopsy, no preference, unsure, specific processing request for pathology (For example: send for ER, [place], HER2/kacey or possible lymphoma send in RPMI [...] (If the imaging was obtained outside the [facility] system, then it needs to be submitted for review prior to approval.) Note to all persons requesting biopsies: All biopsy requests will be scheduled as quickly as possible, based on the clinical urgency, availability of appointment times, the need to hold anti-thrombolytic therapy (aspirin, blood thinners) and the patient s schedule, including the need for an available tow bar driver. If a percutaneous biopsy or drainage is not felt to be safe or an alternative method for establishing a diagnosis is possible, this will be discussed directly with the requesting physician. [facility]04-15-2025 Telephone encounter Note* Telephone Encounter - Meena Leyva - 07/30/2024 10:05 AM EDT Please disregard. I've spoken with the nurse about this and the orders are correct. [facility]04-15-2025 Miscellaneous Notes* Telephone Encounter - Meena Leyva - 07/30/2024 10:05 AM EDT Please disregard. I've spoken with the nurse about this and the orders are correct. * Telephone Encounter - Meena Leyva - 07/30/2024 9:52 AM EDT Per patient's spouse, IR stated that the biopsy orders were not placed correctly. documented in this encounterHolmes County [facility]04-15-2025 Telephone encounter Note * Telephone Encounter - Meena Leyva - 07/30/2024 9:52 AM EDT Per patient's spouse, IR stated that the biopsy orders were not placed correctly. [facility]04-10-2025 History of Present illness Narrative* Derrick [...] was initiating a liver transplant workup at [facility]. During imaging with a CT scan [...] High cc: Sanjay Robledo II, MD [address] [facility] [address] [place] [address] Dmitri Garg [address] [facility] [id number] documented in this encounterHolmes County [facility]04-10-2025 History of Present illness Narrative* Dmitri [...] cirrhosis. MRI Liver obtained in 01/[address] [facility] had noted the following: FINDINGS: LIVER: Small heterogeneous liver with nodular margins. Subtle masslike area within posterior right hepatic lobe, 3.9 x 3.7 cm in axial plane seen only on the postcontrast images. No corresponding findings on other sequences or planes. Of note, this lesion was initially commented on a CT scan at [facility] in 09/2023, but the subsequent MR sequences from 10/2023 did not have proper contrast administration, so the lesion was not able to be well evaluated. A follow-up CT liver (triple phase) done at [facility] in 04/2024 noted the followin.0 cm [...] bony lesion in T10-T12 region. MRI spine ([facility], 07/05/2024): Bone marrow signal/fracture: Marrow replacing T1 [...] started on Lasix 60 mg q12h and [place] nolactone 150 mg daily, and started to [...] gain. He continues to need serial paracentesis [id number]. Last paracentesis was in late June 2024 [...] 25, 2024 1:05 PM documented in this encounterHolmes County [facility]03-31-2025 Telephone encounter Note * Telephone Encounter - HenryIleana - 07/15/2024 8:30 AM EDT Patient labs are uploaded into patient's chart for review. Scanned in under External Labs/Misc. Labs [facility]03-31-2025 Miscellaneous Notes* Telephone Encounter - HenryIleana - 07/15/2024 8:30 AM EDT Patient labs are uploaded into patient's chart for review. Scanned in under External Labs/Misc. Labs documented in this encounterHolmes County [facility]03-27-2025 Telephone encounter Note * Telephone Encounter - Yesica Bright RN - 07/11/2024 9:37 AM EDT Spoke with Loyd León Blandon and his , advised that his case was discussed and declined at livertransplant selection committee on July 10, 2024. Next step is to follow up with hepatology and oncology teams. Yesica Bright RN [facility]03-27-2025 Miscellaneous Notes* Telephone Encounter - Yesica Bright RN - 07/11/2024 9:37 AM EDT Spoke with Loyd León Blandon and his , advised that his case was discussed and declined at livertransplant selection committee on July 10, 2024. Next step is to follow up with hepatology and oncology teams. Yesica Bright RN documented in this encounterHolmes County [facility]03-24-2025 Telephone encounter Note * Telephone Encounter [...] Garg. Appointment schedule reviewed. Yesica Bright RN [facility]03-24-2025 Miscellaneous Notes* Telephone Encounter - Yesica [...] reviewed. Yesica Bright RN documented in this encounterHolmes County [facility]03-21-2025 History of Present illness Narrative* Rajiv [...] PATIENT PRESENTS WITH AN IMPLANTABLE OR ATTACHED SHEET ROCK SANDER: No RADIOLOGY DEPARTMENT: MR; Exam(s) Completed: Spine: Thoracic spine PERIPHERAL IV DATA: Not applicable SIGNED BY: Rajiv Blankenship RT MR July 05, 2024 6:13 PM documented in this encounterHolmes County [facility]03-21-2025 NoteName: Loyd Blandon Patient presents for a Paracentesis. Indication for Procedure: Ascites INFORMED CONSENT Loyd Blandon Medical Record: [id number] Procedure: Paracentesis with US marking The risks, [...] associated with the procedure. Elsy Johnson APRN.CNP [id number] Nurse Note* Raquel Rodrigues RN - 07/05/2024 [...] was removed via paracentesis. Orders received from [facility] for IV placement and albumin infusion. A #22 Gauge angio cath was placed in the Right AC. 50 grams of albumin was infused per protocol and the IV was discontinued post infusion. Raquel Rodrigues RN [facility]03-21-2025 Nurse Note* Raquel Rodrigues RN - [...] was removed via paracentesis. Orders received from [facility] for IV placement and albumin infusion. A #22 Gauge angio cath was placed in the Right AC. 50 grams of albumin was infused per protocol and the IV was discontinued post infusion. Raquel Rodrigues RN documented in this encounterHolmes County [facility]03-21-2025 Nurse procedure note* Sedation Documentation - Raquel Rodrigues RN - 07/05/2024 10:30 AM EDT Albumin 4 [facility]03-21-2025 Nurse procedure note* Sedation Documentation - Raquel Rodrigues RN - 07/05/2024 10:30 AM EDT Needle out; 6.4L out [facility]03-21-2025 Miscellaneous Notes* Sedation Documentation - Raquel [...] Needle in; bottle 1 documented in this encounterHolmes County [facility]03[facility] Nurse procedure note* Sedation Documentation - Raquel Rodrigues RN - 07/05/2024 10:21 AM EDT Albumin 3 [facility]03-21-2025 Nurse procedure note* Sedation Documentation - Raquel Rodrigues RN - 07/05/2024 10:13 AM EDT Bottle 5; albumin 2 [facility]03-21-2025 Nurse procedure note* Sedation Documentation - Raquel Rodrigues RN - 07/05/2024 10:07 AM EDT Albumin 1 [facility]03-21-2025 Nurse procedure note* Sedation Documentation - Raquel Rodrigues RN - 07/05/2024 9:47 AM EDT Bottle 4 [facility]03-21-2025 Nurse procedure note* Sedation Documentation - Steffany Ley RN - 07/05/2024 9:37 AM EDT Bottle 3 [facility]03-21-2025 Nurse procedure note* Sedation Documentation - Raquel Rodrigues RN - 07/05/2024 9:25 AM EDT Bottle 2 [facility]03-21-2025 Nurse procedure note* Sedation Documentation - Raquel Rodrigues RN - 07/05/2024 9:08 AM EDT Needle in; bottle 1 [facility]03-17-2025 Telephone encounter Note* Telephone Encounter - Yesica Bright RN - 07/01/2024 2:36 PM EDT Call placed to clarify the need for an admission if PERLITA is noted on repeat CMP. Patient will have labs drawn 07/02/24 locally. All questions answered. Yesica Bright RN [facility]03-17-2025 Miscellaneous Notes* Telephone Encounter - Yesica Bright RN - 07/01/2024 2:36 PM EDT Call placed to clarify the need for an admission if PERLITA is noted on repeat CMP. Patient will have labs drawn 07/02/24 locally. All questions answered. Yesica Bright RN documented in this encounterHolmes [facility]03[facility] Telephone encounter Note * Telephone Encounter - RupinderJaron oscar - 06/24/2024 8:58 AM EDT Recent lab results are scanned in under external labs/chemistry Jaron Chinchilla Cloth Examiner Machine ll [facility]03-10-2025 Miscellaneous Notes* Telephone Encounter - RupinderJaron oscar - 06/24/2024 8:58 AM EDT Recent lab results are scanned in under external labs/chemistry Jaron Chinchilla Cloth Examiner Machine ll documented in this encounterHolmes [facility]03[facility] Evaluation note* Diagnosis Onset Date Resolution Status Admit Date Cirrhosis acuteMarch 2024 11:48am [facility] Work Phone: 1(337) 846-593103-05-2025 Radiology Diagnostic study [facility] [place] [address] Ultrasound Report Signed Patient: Loyd Blandon MR#: [id number] : 1955 Acct:[id number] Age/Sex: 68 / M ADM Date: 5 Loc: Room: Type: [facility] Attending Dr: Irena Johnson MD Ordering [...] and local anesthesia with lidocaine, a 5 Albanian centesis catheter was advanced into the peritoneal cavity. Approximately 4700 mL of ascites was drained. The catheter was removed. There were no immediate complications. US/US paracentesis abd w/image IMPRESSION: SUCCESSFUL ULTRASOUND-GUIDED PARACENTESIS. Impression dictated by: Morales Alvarez Jr., Eduardo06/19/2024 3:34 PM Dictation Location: [place] [address] Tech: Blanca Nicolas Transcribed By: ROLAND 06/19/24 1534 Dictated By: Morales Alvarez Jr, DO 06/19/24 1534 Signed By: 06/19/24 1534 [facility]03-05-2025 Telephone encounter Note* Telephone Encounter - Elaina Sotomayor HUC - 06/19/2024 8:23 AM EST Spoke with pt's Fabiana to schedule Thoracentesis 07/05/2024 @ 3:30 pm. [facility]03-05-2025 Miscellaneous Notes* Telephone Encounter - Elaina Sotomayor HUC - 06/19/2024 8:23 AM EST Spoke with pt's Fabiana to schedule Thoracentesis 07/05/2024 @ 3:30 pm. documented in this encounterHol[facility]02[facility] Telephone encounter Note * Telephone Encounter [...] room locally or to bring him to [facility] Main ER. She was also instructed to call 911 if he experience difficulty breathing. All questions answered. Yesica Bright RN [facility]02-28-2025 Miscellaneous Notes* Telephone Encounter - Yesica [...] room locally or to bring him to [facility] Main ER. She was also instructed to call 911 if he experience difficulty breathing. All questions answered. Yesica Bright RN documented in this encounterHolmes [facility]02[facility] Telephone encounter Note * Telephone Encounter - Abner Shankar - 06/10/2024 9:[address] Seals, Please see the below evocatal message and contact patient to advise within 72 hours. Abner Pacheco I scheduled Bill's 2nd shot for today at [facility]. Specifically the [employer] brand and [facility] just called stating [employer] would not approve that brand. [facility] thought maybe if you requested approval from [employer] directly it may be approved. It is $190 which is not something we want to pay. He will be getting his RSV today. [facility]02-24-2025 Miscellaneous Notes* Telephone Encounter - Abner Shankar - 06/10/2024 9:[address] Seals, Please see the below evocatal message and contact patient to advise within 72 hours. Abner Eng Production Trainer I scheduled Bill's 2nd shot for today at [facility]. Specifically the [employer] brand and [facility] just called stating [employer] would not approve that brand. [facility] thought maybe if you requested approval from [employer] directly it may be approved. It is $190 which is not something we want to pay. He will be getting his RSV today. documented in this encounterHolmes [facility]02[facility] History of Present illness Narrative* Brad [...] PATIENT PRESENTS WITH AN IMPLANTABLE OR ATTACHED SHEET ROCK SANDER: No RADIOLOGY DEPARTMENT: MR; Exam(s) Completed: Spine: Cervical spine, Thoracic spine, and Lumbar spine PERIPHERAL IV DATA: Site assessment: Clean,Dry and Intact, Site disposition Discontinued SIGNED BY: RT Ginger(R) June 08, 2024 2:10 PM documented in this encounterHolmes [facility]02[facility] History of Present illness Narrative* Akua [...] 2024 TIME: 12:17 PM documented in this encounterHolmes [facility]02[facility]20[facility] Telephone encounter Note * Telephone Encounter [...] MD Colton Steen MD Siuba, Matthew, MD [facility]02-20-2025 Miscellaneous Notes* Telephone Encounter - Yesica [...] MD Siuba, Matthew, MD documented in this encounterHolmes [facility]02[facility]14-2025 Nurse Note* Mis Hong RN - [...] MATERIAL: Procedure Discharge Instructions REFERRAL (RECOMMENDATION): None [facility]02-14-2025 Nurse Note* Mis Hong RN - [...] RN In Department: GASTROENTEROLOGY documented in this encounterHolmes [facility]02-14-2025 Nurse procedure note* Sedation Documentation - Mis Hong RN - 05/31/2024 9:54 AM EST Bottle 3 [facility]02-14-2025 Miscellaneous Notes* Sedation Documentation - Mis Hong RN - 05/31/2024 9:54 AM EST Bottle 3 * Sedation Documentation - Mis Hong RN - 05/31/2024 9:36 AM EST Bottle 2 documented in this encounterHolmes [facility]02[facility]-2025 Nurse procedure note* Sedation Documentation - Mis Hong RN - 05/31/2024 9:36 AM EST Bottle 2 [facility]02-14-2025 Nurse Note* Mis Hong RN - [...] By: Mis Hong RN In Department: GASTROENTEROLOGY [facility]02-14-2025 History of Present illness Narrative* Dada Hoffman RRT - 05/31/2024 8:19 AM EST PULM FUNCTION: Provider: Cheri Guido MD Spirometry: 1 DLCO: 1 documented in this encounterHolmes [facility]02-13-2025 Telephone encounter Note * Telephone Encounter [...] Carranza RN, RN. In Department of CARDIOLOGY. [facility]02-13-2025 Miscellaneous Notes* Telephone Encounter - Pema [...] In Department of CARDIOLOGY. documented in this encounterHolmes County [facility]02-13-2025 Telephone encounter Note * Telephone Encounter [...] relayed to Dr. Garg. Yesica Bright RN' [facility]02-13-2025 Miscellaneous Notes* Telephone Encounter - Yesica Bright RN - 05/30/2024 12:14 PM EST Call placed per Dr. Gagr's request to get additional information on his groin area, and pt report that the he bulge is located on the right side of his pubic area, tender if pushed, soft and squishy. The above information was relayed to Dr. Garg. Yesica Bright RN' documented in this encounterHolmes [facility]02-12-2025 Telephone encounter Note * Telephone Encounter - Raymond Odell - 05/29/2024 10:33 AM EST Sent urgent request to the scheduling pool. [facility]02-12-2025 Miscellaneous Notes* Telephone Encounter - Raymond Odell - 05/29/2024 10:33 AM EST Sent urgent request to the scheduling pool. documented in this encounterHolmes County [facility]02-06-2025 Instructions* Patient Instructions* Brisa Bull MD - 05/23/2024 12:29 PM EST You were seen today for your shortness of breath and right sided pleural effusion (fluid). I will reach out to Dr. Rosales regarding repeating a paracentesis and thoracentesis prior to your [facility] on 05/31. We will have you repeat your pulmonary function tests immediately after your thoracentesis. Please follow up as needed. documented in this encounterHolmes County [facility]02-[facility]-2025 History of Present illness Narrative* Cheri Guido MD - 05/23/2024 11:30 AM EST Images from the original note were not included. Mr. Blandon is a 68 year old male who presents to the [facility]. Consultation requested by Dr. Dmitri Garg for [...] personally reviewed by me Data Reviewed from [facility] (in addition to that noted in [...] year old male who presents to the [facility] for evaluation of shortness of breath, currently [...] up Cheri Guido MD documented in this encounterHolmes [facility]02-[facility]-2025 History of Present illness Narrative* Toshia Keita RRT - 05/23/2024 10:41 AM EST PULM FUNCTION: Provider: Brisa Bull MD Spirometry: 1 System: MC2 - [id number] documented in this encounterHolmes [facility]02-[facility]-2025 History of Present illness Narrative* Courtney [...] PATIENT PRESENTS WITH AN IMPLANTABLE OR ATTACHED SHEET ROCK SANDER: No RADIOLOGY DEPARTMENT: General X-ray: Exam(s) Completed: Chest X-Ray PERIPHERAL IV DATA: Not applicable SIGNED BY: RT Noris(R) May 23, 2024 10:30 AM documented in this encounterHolmes [facility]02-05-2025 Telephone encounter Note * Telephone Encounter - Patsy Begum - 05/22/2024 9:00 AM EST Admin responded to pt MC message regarding lab appt. Patsy Begum May 22, 2024 9:02 AM [facility]02-05-2025 Miscellaneous Notes* Telephone Encounter - Patsy Begum - 05/22/2024 9:00 AM EST Admin responded to pt MC message regarding lab appt. Patsy Begum May 22, 2024 9:02 AM documented in this encounterHolmes County [facility]01-31-2025 Telephone encounter Note * Telephone Encounter [...] now viewable in the scanned section of [facility](hepatology is aware). Yesica Bright RN [facility]01-31-2025 Miscellaneous Notes* Telephone Encounter - Yesica [...] now viewable in the scanned section of [facility](hepatology is aware). Yesica Bright RN documented in this encounterHolmes County [facility]01-24-2025 Telephone encounter Note * Telephone Encounter - Patsy Begum - 05/10/2024 11:37 AM EST Admin received outside lab results for pt. Uploaded into OnBase for review. Patsy Cardosohea May 10, 2024 11:37 AM [facility]01-24-2025 Miscellaneous Notes* Telephone Encounter - Patsy Begum - 05/10/2024 11:37 AM EST Admin received outside lab results for pt. Uploaded into [employer] for review. Patsy Begum May 10, 2024 11:37 AM documented in this encounterHolmes [facility]01-24-2025 Telephone encounter Note * Telephone Encounter - Brittaney Mueller - 05/10/2024 9:17 AM EST External chem labs received and scanned. [facility]01-24-2025 Miscellaneous Notes* Telephone Encounter - Brittaney Mueller - 05/10/2024 9:17 AM EST External chem labs received and scanned. documented in this encounterHolmes [facility]01-22-2025 History of Present illness Narrative* Hal [...] hepatic artery thrombosis, and . Short and termite helper outcomes data was discussed. I reviewed an [...] 08, 2024 12:45 PM documented in this encounterHolmes [facility]01-21-2025 Telephone encounter Note * Telephone Encounter - Yesica Bright RN - 05/07/2024 1:44 PM EST Follow up call placed to review OLT evaluation as well and Dr. Garg's need for a repeat CMP after the administration of of the adjusted diuretic regimen. Will follow up with patient and his on 05/10/24 to review tumor board results. Yesica Bright RN [facility]01-21-2025 Miscellaneous Notes* Telephone Encounter - Yesica Bright RN - 05/07/2024 1:44 PM EST Follow up call placed to review OLT evaluation as well and Dr. Garg's need for a repeat CMP after the administration of of the adjusted diuretic regimen. Will follow up with patient and his on 05/10/24 to review tumor board results. Yesica Bright, RN documented in this encounterHolmes County [facility]01-16-2025 Instructions* Patient Instructions* Brisa Seals MD [...] if foreign travel considered. documented in this encounterHolmes [facility]01-[facility]-2025 History of Present illness Narrative* Brisa [...] Born and raised [place] Has lived in [place], 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 no exposure to anyone who is homeless or in custodial. Significant other exposures: Smoking: prior Alcohol:none current [...] 11:16 AM PAGER/CONTACT #: documented in this encounterHolmes County [facility]01-16-2025 History of Present illness Narrative* Jade Arora MD - 05/02/2024 12:30 PM EST Images from the original note were not included. [facility] Claude Suárez Department of Cardiovascular Medicine SECTION OF CLINICAL CARDIOLOGY OUTPATIENT VISIT DATE May 02, 2024 OUTPATIENT VISIT TYPE CONSULTATION PRIMARY CARE PHYSICIAN: Not on file REFERRING PHYSICIAN Dmitri Garg [address] [facility] [id number] CHIEF COMPLAINT: Pre liver transplant HISTORY OF PRESENT ILLNESS: Cardiac consultation at the request of Dr. Dmitri Garg.A copy of this consultation note will be provided to the requesting physician by way of shared Medical record or letter to requesting physicianvia US mail. Mr. Blandon is a 68 year old male from [place], [place], here today for cardiovascular evaluation related [...] in T10 is suspicious for neoplastic etiology. Regeneration Operator: SRINI Transcribe Date/Time: Apr 30 2024 8:19A [...] INFORMATION: Jade Arora MD May 02, 2024 [address] [place] [address] Greta Attestation: By signing my name below, [...] 03, 2024 1:51 PM documented in this encounterHolmes County [facility]01-15-2025 Nurse procedure note* Sedation Documentation - [...] Follow up as needed Jenn Corea RN [facility]01-15-2025 Miscellaneous Notes* Sedation Documentation - Jenn Corea RN - 05/01/2024 12:02 PM EST 5.3 liters of ascites fluid was removed via paracentesis. Orders received from Rosalinda Benoit [facility] forIV placement and albumin infusion. A [...] 3. 1105: Bottle 4. documented in this encounterHolmes County [facility]01-15-2025 Nurse procedure note* Sedation Documentation - Jenn Corea RN - 05/01/2024 11:45 AM EST Needle out. 5.3 L removed via paracentesis without incident. Pressure dressing applied to pt's leftabdomen accordingly. [facility]01-15-2025 Nurse procedure note* Sedation Documentation - Jenn Corea RN - 05/01/2024 11:30 AM EST 1130: Albumin 1 1135: Albumin 2 1144: Albumin 3 [facility]01-15-2025 Nurse procedure note* Sedation Documentation - Jenn Corea RN - 05/01/2024 11:29 AM EST #22 peripheral IV placed in pt's right AC for needed albumin infusion. Blood return present. [facility]01-15-2025 Nurse procedure note* Sedation Documentation - Jenn Corea RN - 05/01/2024 10:46 AM EST 1045: Needle in. Bottle 1. 1050: Bottle 2. 1055: Bottle 3. 1105: Bottle 4. [facility]01-15-2025 Nurse Note* Jenn Corea RN - [...] By: Jenn Corea RN In Department: GASTROENTEROLOGY [facility]01-15-2025 Nurse Note* Jenn Corea RN - [...] RN In Department: GASTROENTEROLOGY documented in this encounterHolmes County [facility]01-15-2025 Consult note* Colton Laughlin MD - [...] cirrhosis for 5 month(s). Dr Johnson in [place] referred here to Dr Weir. Patient Currently [...] included preparing to see the patient and [id number] patient care. SIGNATURE: Colton Laughlin MD PATIENT NAME: Loyd Blandon DATE: May 01, 2024 TIME: 8:14 AM [facility]01-15-2025 Consult note* Colton Laughlin MD - [...] cirrhosis for 5 month([address]). Dr Johnson in [place] referred here to Dr Weir. Patient Currently [...] included preparing to see the patient and [id number] patient care. SIGNATURE: Colton Laughlin MD PATIENT NAME: Loyd Blandon DATE: May 01, 2024 TIME: 8:14 AM documented in this encounterHolmes County [facility]01-14-2025 Telephone encounter Note * Telephone Encounter - Elaina Sotomayor HUC - 04/30/2024 3:54 PM EST Spoke with pt's Fabiana to schedule Thoracentesis 05/01/2024 @ 12:30 pm. [facility]01-14-2025 Miscellaneous Notes* Telephone Encounter - Elaina Sotomayor HUC - 04/30/2024 3:54 PM EST Spoke with pt's Fabiana to schedule Thoracentesis 05/01/2024 @ 12:30 pm. documented in this encounterHolmes County [facility]01-14-2025 History of Present illness Narrative* Alessandro Vo [facility] - 04/30/2024 1:00 PM EST Images from [...] Bactrim [Sulfametho* Rash Preferred Pharmacy e- [id number] [place] [address] - [address] [facility] - [phone] [facility] [address] [facility] [id number] Evaluation of current pharmacotherapy: Current Outpatient Rx [...] HAV, HBV, Shingrix, and RSV Received at [facility] will bring in records Education provided: [...] Transplant Pharmacy Clinical Specialist documented in this encounterHolmes County [facility]01-14-2025 Telephone encounter Note * Telephone Encounter - Yesica Bright RN - 04/30/2024 10:23 AM EST AMBULATORY PATIENT EDUCATION NOTE Met with patient/family to discuss the following information: [x] SRTR information provided and questions answered. Informed patient to call digital account coordinator with any questions [x] Patient was provided the [employer] brochure on multiple listing and waiting time transfer [x]Evaluation process including presentation to selection committee, and listing criteria reviewed [x]Surgical procedure, including post-operative management, hospitalization, lifelong immunosuppressive medications and their side effects (including the risk for hypertension, diabetes, kidney problems and cancers) and long-term follow up after transplant. Possibility of recurrent disease discussed with patient. [x]Patient is aware of the potential medical, surgical or psychosocial risks [x] Patient is aware that they will need a customer care consultant to be available for the first 8-12 [...] to listing. [x] Patient told that the [facility] is a teaching facility and part of care, under the guidance of my physicians, may be conducted by Residents, [place] and students. [x]Patient advised that transplants not [...] Yesica Bright RN In Department: TRANSPLANT CENTER [facility]01-14-2025 Miscellaneous Notes* Telephone Encounter - Yesica Bright RN - 04/30/2024 10:23 AM EST AMBULATORY PATIENT EDUCATION NOTE Met with patient/family to discuss the following information: [x] SRTR information provided and questions answered. Informed patient to call digital account coordinator with any questions [x] Patient was provided the [employer] brochure on multiple listing and waiting time transfer [x]Evaluation process including presentation to selection committee, and listing criteria reviewed [x]Surgical procedure, including post-operative management, hospitalization, lifelong immunosuppressive medications and their side effects (including the risk for hypertension, diabetes, kidney problems and cancers) and long-term follow up after transplant. Possibility of recurrent disease discussed with patient. [x]Patient is aware of the potential medical, surgical or psychosocial risks [x] Patient is aware that they will need a customer care consultant to be available for the first 8-12 [...] to listing. [x] Patient told that the [facility] is a teaching facility and part of care, under the guidance of my physicians, may be conducted by Residents, [place] and students. [x]Patient advised that transplants not [...] In Department: TRANSPLANT CENTER documented in this encounterHolmes County [facility]01-13-2025 History of Present illness Narrative* Gena [...] PATIENT PRESENTS WITH AN IMPLANTABLE OR ATTACHED SHEET ROCK SANDER: No RADIOLOGY DEPARTMENT: CT; Exam(s) Completed: Chest and Liver PERIPHERAL IV DATA: Site assessment: Clean,Dry and Intact, Site disposition Discontinued SIGNED BY: RT Aura(R) April 29, 2024 4:59 PM documented in this encounterHolmes County [facility]01-13-2025 History of Present illness Narrative* Dmitri [...] BID - plan to repeat EGD at [facility] HCC screening - requires imaging every [...] 04/29/2024 Time: 7:40 PM documented in this encounterHolmes County [facility]01-13-2025 History of Present illness Narrative* Lis [...] White// Heritage [place] Citizen: Yes Preferred Language: Cypriot Lives now: Loyd Blandon [phone] [facility] [address] Impressions: Patient is a 68 year old , male being evaluated for an OLT due to a diagnosis of alcohol-related cirrhosis, possible HCC . Social Support- Patient lives at home with his in house in [place], [place]. Patient reports that he has 3 [...] GI, Dr. Garzon, [facility]PC[facility] Personal History: Born: [place], [place] Grew up where: went to 8 high schools, [place], moved around a lot Parents: Pt was raised by: mom raised him, and got along well with her. Had contact with biologicaldad, he 5 years ago. Got when patient was 8. Dad from old age, and mom was COPD and emphysema, alcoholic Siblings: 3 brothers and a sister-brothers live in [place], and sister lives on the [facility] (don't talk to sister); half kkylim-Yvdgsat-kjbsuvwfs part Pt is the: oldest Describes upbringing [...] none Honorable discharge: none VA benefits: none Skilled Nursing/Nursing Home: none Currently on parole/probation:none Any outstanding legal issues:none Relationship status: -35 years Name of spouse/partner: Fabiana Age: 68 Occupation: retired Medical concerns: none Quality of relationship: good Children: Yes. How many? 2 -1 son and 1 dtr Names and Ages: Bev-41 Loyd-45 Location: No contact with Bev, lives in [place], [place] Loyd-lives in [place] Health issues: Loyd is an addict Quality [...] Likes golfing, watching football, cooking Community Supports: Pentecostalism: No Other supports: spouse/partner and siblings-half sister, step mom Functioning Abilities: ADL's: requires assistance with the following ADL's: bathing, toileting, ambulating, grocery shopping, house cleaning, and driving-breathing is the issue (sob) Ambulation: Uses a wheelchair-for long distances in the hospital, but does not use a device when athome Community Services/Agencies: None Driving: none-the last year 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 Access to Transporation: Yes Caregiving for [...] her 20s History of working with medical concierge: good Compliant: Good with consistent follow through Motivation for a transplant: Patient shared that his motivation is that he is not ready to yet,I do not feel that I have lived a full life yet Living Donor: haven't looked into it Discussed MELD score, evaluation process, selection committee, listing, waiting, the call, surgery,hospital recovery time, hospital stay, discharge, long-term recovery Financial: Insurance: Medicare-Aetna Prescription Coverage : [...] mom Primary support person: Fabiana- Home # [phone] Availability 07/11 Driving:yes Medical/Health Concerns: none Secondary support people: Gisell-half sister Contact #: [phone] Availability not working Driving: yes Medical/Health Concerns: none Who can drive you, be off work, learn your medications, etc.: family Plan for children or pets: Gisell-half sister Other people available: family Family stressors/disagreements: none If multiple caregivers are identified are they able to work together?: yes Patient and Care -Partner(s) read and signed- 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 Y 2. Does [...] Directives: Living Will: Yes Durable Power of Seam Finisher: Yes Information/forms given: completed a couple weeks ago ANNA Norris LISW-S, [facility] April 29, 2024 12:49 PM documented in this encounterHolmes County [facility]01[facility] Instructions* Patient Instructions* Sara-Ivelisse Cabrera, EBER [...] milk and fairlife shakes documented in this encounterHolmes County [facility]01-13-2025 History of Present illness Narrative* Ivelisse [...] 2024 TIME: 12:01 PM documented in this encounterHolmes County [facility]01-13-2025 History of Present illness Narrative* Amaury Sheffield, MARKELL - 04/29/2024 10:00 AM EST PULM FUNCTION: Provider: Dmitri Garg MD Spirometry: 1 System: [id number] - [id number] documented in this encounterHolmes County [facility]01-09-2025 History of Present illness Narrative* Kalyn George RN - 04/25/2024 11:46 AM EST The following information has been provided/discussed with the patient/family during Shared MedicalAppointment education class: Informed Consent for Organ Transplant Program Participation version November 03, 2022. SRTR information provided and questions answered. Informed patient to call digital account coordinator with any questions. UNOS information regarding multiple listings for organ transplantation Evaluation process including presentation to selection committee and listing criteria Surgical procedure, including post-operative management, hospitalization, immunosuppressive medications and their side effects (including the risk for hypertension, diabetes, kidney problems and cancers) and termite helper follow up after transplant. Possibility of recurrent [...] was also addressed Patient was provided with [facility] information sheet regarding transplantation of HepatitisC viremic [...] could potentially be read by a third constitution party when sent through the internet (or cellular phone) and desires to receive his protected health information by unencrypted email (or text). INFORMED CONSENT Loyd Blandon Medical Record: [id number] Informed consent for Organ Transplant Program Participation [...] RN April 25, 2024 documented in this encounterHolmes County [facility]01-08-2025 Telephone encounter Note * Telephone Encounter [...] patient have to hold Beta Connie? NO [facility]01-08-2025 Miscellaneous Notes* Telephone Encounter - Chas [...] hold Beta Connie? NO documented in this encounterHolmes County [facility]01-07-2025 Telephone encounter Note * Telephone Encounter [...] Zoom education class: 04/25/24 Virginia Hickman RN [facility]01-07-2025 Miscellaneous Notes* Telephone Encounter - Virginia [...] RN - 04/23/2024 9:33 AM EST [facility] Referral for Liver Transplant This is a [...] Neuro: None Cancer: Yes, BCC skin L faith 2017 s/p MOHS Psych: None Other pertinent history: Yes, recinos's esoph, early satiety, weight loss, GERD, dyspepsia Vitals: Date: 03/08/24 BP: 130/91 mmHg HR: 68 bpm Ht: 175.3cm Wt: 84.4kg BMI: 27.47 (send BMI >35 to clinical manager integrity)(If BMI>35 and diagnosis of alcohol, note that [...] and B, Tetanus, Zostivax, Flu, Pneumonia, etc.): [facility] Testing completed already: None Pt will need: CT liver for indeterminate mass like lesion, pulm Pt to provide the following records: Yes, dental, derm Virginia Hickman RN documented in this encounterHolmes County [facility]01-07-2025 Telephone encounter Note * Telephone Encounter - Virginia Hickman RN - 04/23/2024 9:33 AM EST [facility] Referral for Liver Transplant This is a [...] Neuro: None Cancer: Yes, BCC skin L faith 2017 s/p MOHS Psych: None Other pertinent history: Yes, recinos's esoph, early satiety, weight loss, GERD, dyspepsia Vitals: Date: 03/08/24 BP: 130/91 mmHg HR: 68 bpm Ht: 175.3cm Wt: 84.4kg BMI: 27.47 (send BMI >35 to clinical manager integrity)(If BMI>35 and diagnosis of alcohol, note that [...] records: Yes, dental, derm Virginia Hickman RN [facility]01-06-2025 Telephone encounter Note* Telephone Encounter - [...] we can see him. Virginia Hickman RN [facility]01-06-2025 Miscellaneous Notes* Telephone Encounter - Virginia [...] speed up the process. documented in this encounterHolmes County [facility]01-06-2025 Telephone encounter Note * Telephone Encounter - Jillian Aguayo - 04/22/2024 11:14 AM EST Patients is calling for status update. She wants to know what the next step is. Pt is having difficulty breathing and she would like to speed up the process. [facility] Work Phone: 1(126) 864-996212-12-2024 Telephone encounter Note* Telephone Encounter - Chas King II - 03/28/2024 12:39 PM EST LIVER TRANSPLANT REFERRAL Loyd Blandon [id number] Diagnosis: ETOH MELD Na: 18 (Check EPIC [...] for transplant to your (OOS) Medicaid case coordinator? No MyCHART Is the patient signed up [...] physicians that records have been requested from [facility] Have images been requested from [employer]? Yes (If imaging records are available in Care Everywhere, still request the outside images via [employer]) A nurse will call for medical intake: -who should she call (Name/relationship to pt)? patient -what phone number? [phone] Phone number to office provided to pt: Yes Additional Comments about patient/evaluation: n/a Chas King [facility]12-12-2024 Miscellaneous Notes* Telephone Encounter - Chas King II - 03/28/2024 12:39 PM EST LIVER TRANSPLANT REFERRAL Loyd Blandon [id number] Diagnosis: ETOH MELD Na: 18 (Check EPIC [...] for transplant to your (OOS) Medicaid case coordinator? No MyCHART Is the patient signed up [...] physicians that records have been requested from [facility] Have images been requested from [employer]? Yes (If imaging records are available in Care Everywhere, still request the outside images via [employer]) A nurse will call for medical intake: -who should she call (Name/relationship to pt)? patient -what phone number? [phone] Phone number to office provided to pt: Yes Additional Comments about patient/evaluation: n/a Chas King documented in this encounterHolmes County [facility]12-09-2024 Telephone encounter Note * Telephone Encounter - Chas King II - 03/25/2024 10:30 AM EST Called patient regarding a liver transplant evaluation, left message on voicemail to return call [facility]12-09-2024 Miscellaneous Notes* Telephone Encounter - Chas King II - 03/25/2024 10:30 AM EST Called patient regarding a liver transplant evaluation, left message on voicemail to return call documented in this encounterHolmes County [facility]11-22-2024 Note Attestation signed by Irena Johnson [...] documentation in this note for specific details. [facility] Gastroenterology Follow-Up Patient Visit CHIEF COMPLAINT No [...] large esophageal v (more content not included)... [facility]11-05-2024 NoteHospital Medicine Discharge Summary Final Discharge Diagnosis: [...] differential In process Fungal culture In process Non-rn gynecology cytology - fluid exam In process PH PLEURAL FLUID, RESPIRATORY In process Pathology Review In process AFB culture Preliminary result Body fluid cell differential Preliminary result Body fluid culture Preliminary result Diet at the time of discharge: regular diet and low-sodium diet Nutrition Screen Activity: Patient currently has no discharge activity orders Objective Blood p (more content not included)...[facility] 02-20-2024 Note02/20/24 1518 Admission Assessment Questions Verify [...] Interested Does the patient have a case coordinator assigned to them through their insurance? No [...] able to send link and activate MyChart? [facility]UnHighland [facility]11-[facility]-2024 NotePatient: Loyd Blandon Procedure Summary Date: [...] PACU per anesthesia protocol. No notable events documented.[facility]11-05-2024 Note Hospital Medicine Daily Progress Note - 02/20/2024 1:46 PM; Room: OR/- Admission: 02/19/2024 4:29 PM; Length of stay: 1 days THE HOSPITALIST TEAM PREFERS TO USE via680 CHAT FOR NON-URGENT COMMUNICATION 7AM-7PM. IF I DO NOT RESPOND WITHIN 20 MINUTES OR URGENT MATTERS, PLEASE CALL THROUGH THE [employer] LINE ATTENDANT. FROM 7PM-7AM, PLEASE PAGE [phone](COVR). Code Status: Full Code Barriers to Discharge: [...] , FREET4 , CORTISOL , FEV1 , OTU3BPI , DLCO , RVSP , HDL , LDL No results found for: [id number] , IRON , TIBC , C3 , [...] that demonstrated two columns (more content not included)...[facility]11-05-2024 NoteHoital Medicine Daily Progress Note - 02/20/2024 1:34 PM; Room: OR/- Admission: 02/19/2024 4:29 PM; Length of stay: 1 days THE HOSPITALIST TEAM PREFERS TO USE Footbalistic FOR NON-URGENT COMMUNICATION 7AM-7PM. IF I DO NOT RESPOND WITHIN 20 MINUTES OR URGENT MATTERS, PLEASE CALL THROUGH THE [employer] LINE ATTENDANT. FROM 7PM-7AM, PLEASE PAGE [phone](COVR). Code Status: Full Code Barriers to Discharge: [...] , FREET4 , CORTISOL , FEV1 , QNG5YNW , DLCO , RVSP , HDL , LDL No results found for: [id number] , IRON , TIBC , C3 , [...] is a recent righ (more content not included)...[facility]11-05-2024 Note Attestation signed by Aston Conner MD at 02/21/2024 1:03 PM I was present and supervised the procedure THORACENTESIS PROCEDURE NOTE Procedure Supercharger Repair Supervisor: Sriram Sue MD Attending Physician: Aston Conner [...] Sue MD Pulmonary and Critical Care Fellow [facility]11-05-2024 Note Attestation signed by Aston Conner [...] cirrhosis for which he follows up with [facility] gastroenterology. He has been struggling with recurrent ascites and has undergone multiple paracentesis over the past many weeks. He experiences dyspnea both at rest and over exertion for the past 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. Patient reports that his dyspnea got better/relieved for 1 day and he became symptomatic again after the fluid got reaccumulated. Today patient came to the [facility] for an EGD he is accompanied by [...] his Primary GI doctors. Follow-up at the [facility] for therapeutic paracentesis and thoracentesis. Current Medications: Scheduled Meds: [MAR Hold] carvedilol, 3.125 mg, oral, Nightly [MAR Hold] famotidine, 40 mg, oral, BID [MAR Hold] furosemide, 60 mg, oral, Nightly [JUN Hold] lactulose, 10 g, oral, Daily [JUN Hold] pantoprazole, 40 mg, oral, Daily [JUN Hold] prednisoLONE acetate, 1 drop, Both Eyes, TID [JUN Hold] rifAXIMin, 550 mg, oral, (more content not included)...[facility]11-05-2024 NotePatient: Loyd Blandon Procedure Information Date/Time: 11/27/23 1130 Scheduled providers: Irena oJhnson MD; Jl Kent MD; VALDEMAR Heath Procedure: EGD Location: [facility] Invasive [facility] [place] Relevant Problems Cardio (+) Aortic root dilatation [...] normal exam Pulmonary (+) decreased breath sounds AbdominalUnHighland District Hospital11-05-2024 NoteA. Satisfactory for evaluation. Examination of the ThinPrep slide and cell block reveals a hypocellu lar specimen containing few mesothelial cells and scattered inflammatory cells in a background of proteinaceous material.[facility] Comment on above:Performed By: #### LAB13 ####[facility] (MILLIE)[address] [place], [place] [id number] NoteHospital Medicine History and Physical 02/19/2024 3:19 PM THE HOSPITALIST TEAM PREFERS TO USE via680 CHAT FOR COMMUNICATION 7AM-7PM. IF I DO NOT RESPOND WITHIN 15 MINUTES, PLEASE PAGE ME/CALL THROUGH THE [employer] LINE ATTENDANT. FROM 7PM-7AM, PLEASE PAGE [phone](COVR). Chief Complaint EGD variceal screening History of [...] pleural effusion, thora in the past at [facility] Dyspnea 2cm Hepatic lesion in the [...] med rec is (more content not included)... [facility]10-31-2024 Note Attestation signed by Jean Jaquez MD at 02/16/2024 1:16 PM I have seen and examined the patient. I reviewed the resident/fellow note and I agree with the findings and plan. Jean Jaquez MD Interventional Pulmonary Medicine Pulmonary and Critical Care Medicine [facility] Physicians Pulmonary Clinic Visit Note Patient: Loyd Blandon Age: 68 y.o. : 1955 Account No.: [id number] Referring physician: Dr. Irena Johnson Chief complaint: [...] he underwent thoracentesis by Dr. Winter at [facility]. He reports that his dyspnea was [...] Yes Marito Oquendo MD (more content not included)...[facility]10-03-2024 History of Present illness Narrative* Ira Walker, [...] different lens options were explained including the pjj-nl-hxbsqd fees for any upgrades. Intraocular lens (IOL) [...] - and OD -. documented in this encounterGeneral Leonard Wood Army Community [id number] Note Attestation signed by Irena Johnson MD at 01/01/2024 8:49 AM I discussed the findings and therapeutic plan with the fellow. I agree with the documentation, except for any edits/updates below. I called and spoke with the patient and his , Fabiana. I confirmed with them that they should use Lasix 60 mg once daily as previously instructed, and they acknowledged this.[facility]09-11-2024 Note Attestation signed by Irena Johnson MD [...] were changed during his recent hospitalization at [facility], therefore, will repeat labs Will change to [...] documentation in this note for specific details. [facility] Gastroenterology Follow-up visit CHIEF COMPLAINT Chief Complaint [...] that the patient was recently hospitalized at [facility] for worsening ascites and shortness of breath. She reports that patient has fluid removed via thoracentesis and paracentesis. He has not undergone paracentesis since his hospital stay. She reports that d (more content not included)... [facility]08-28-2024 History of Present illness Narrative* JOEL Patel [...] was increasedto 40 mg BID but saw Melting Operator in [place], Dr. Hazel, and he was not happy [...] cause drowsiness. Abdominal distension They will contact [facility] to get set up for repeat paracentesis as needed, previously orchestrated by his GI specialist. QUESADA (dyspnea on exertion) - Transthoracic Echo (TTE) Complete; Future Will obtain an ECHO for further evaluation at this time. Gastroesophageal reflux disease without esophagitis Continue current medications as prescribed. Other ascites - Transthoracic Echo (TTE) Complete; Future The patient is seeing a vice president medical affairs for this condition, treatment is deferred to that specialist. Correspondence from that specialist and any available testing were reviewed during today's visit. 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 Will be having a follow up EGD in three months for monitoring of esophageal varices. Follow up for Appointment As Scheduled. documented in this encounterGeneral Leonard Wood Army Community [id number] NotePatient: Loyd Blandon Procedure Summary Date: 11/27/23 Room / Location: [facility] Anesthesia Start: 1041 Anesthesia Stop: 1107 Procedure: [...] PACU per anesthesia protocol. No notable events documented.[facility]08-12-2024 Note Patient: Lyod Blandon Procedure Summary Date: 11/27/23 Room / Location: [facility] Anesthesia Start: 1040 Anesthesia Stop: Procedure: EGD Diagnosis: Alcoholic cirrhosis of liver with ascites (CMS/HCC) Scheduled Providers: Irena Johnson MD; Jl Kent MD; VALDEMAR Heath Responsible Provider: Jl Kent MD Anesthesia Type: MAC ASA Status: 3 Anesthesia Post [facility] Patient Monitor: direct observation Transport: uneventful Patient condition is: stableUnHighland District Hospital08-12-2024 Note Patient: Loyd Blandon Procedure Information Date/Time: 11/27/23 1130 Scheduled providers: Irena Johnson MD; Jl Kent MD; VALDEMAR Heath Procedure: EGD Location: [facility] [place] Relevant Problems Cardio Denies chest pain/SOB (+) [...] patient. Plan discussed with CAA. Additional Equipment RequestsUnHighland District Hospital07-24-2024 Note Refills providedUnHighland District Hospital07-01-2024 NotePatient is going to continue taking the medication. PAP application submitted to [email or web address]. Follow up on status. Darnell Rzao CPhT [facility] 03/04/24 1:08 PMUnHighland District Hospital07-01-2024 NotePatient due for Xifaxan Pap renewal. Darnell Razo CPhT [facility] 02/19/24 8:39 AMUnHighland District Hospital07-01-2024 NoteHave received pt. Portion of PAP form still waiting on prescribers portion. Re faxed the forms over to GI. Send PAP forms in once prescribers portion is signed. Darnell Razo CPhT [facility] 10/20/23 1:20 PMUnHighland District Hospital07-01-2024 NoteXifaxan PA approved through 04/10/2024, previous approval. Pt has not been on lactulose, prescribed lactulose on the same day as Xifaxan. Based on discussion with annual income for 2 people in the household is $52,000. Should qualify for PAP. Will email provider and pt portions. Josh Jane, PharmD, BCACP 10/16/23 1:56 PM [facility] [phone] Hospital [facility]07-01-2024 NoteI received a call from [facility] - the patient's was incomplete on page 5 of the application. I have corrected this and refaxed it to [facility]. We will continue to follow up. Brandi Valdo, [facility] 03/11/24 2:21 PMKind[facility]07-01-2024 NotePatient assistance application approved through [facility]. Approval good through 04/16/2024. Patient Case ID/Approval Number: [id number]. Notified patient and will follow up to confirm shipment/delivery is scheduled. Yamini Camarillo, [facility] 10/23/23 10:11 [facility]07-01-2024 NotePrior Authorization renewal for Xifaxan has been approved 04/17/2024-11/04/2024. Case ID/Authorization Number: NA [x] Patient in spreadsheet [x] Tracking Spreadsheet [x] Archive in CM Called patient and they are aware wants to try and appeal PAP denial. Patient has 300 tablets on hand. Set follow up for Monday to write appeal. Misha Voss [facility] 05/08/24 3:01 PMKind[facility]07-01-2024 NoteCalled [facility] and they said that the denial was reversed and the application is now under review again. Appeal was received. Follow up on status on application. Darnell Razo, [facility] 05/17/24 2:24 PMKind[facility]07-01-2024 NoteWrote appeal for PAP and had [facility] sign. Faxed to PAP awaiting determination. Follow up next week for status. Misha Voss [facility] 05/10/24 11:42 [facility]07-01-2024 NotePatient was denied PAP due [...] Called PAP if copay is really high entry level sales representative encouraged us to appeal the denial. Send in letter and claim to show he can't afford. Misha Voss CPhT [facility] 05/08/24 8:35 AMKindred Hospital [facility]07-01-2024 Note Attestation with edits by Josh Jane PharmD, LOYD at 03/22/2024 9:15 AM Josh Jane PharmD, RUBACP 03/22/24 9:15 AM [facility] [phone] Called [employer] to check the status of the PAP application, rep stated that they cannot process 2024 application until April 17, but we do not need to resubmit the paperwork. Call to check PAP status around a week after the new year begins. Emilee Larios, [facility] 03/21/24 12:23 PMKind[facility]07-01-2024 NoteCalled patient to verify if he is still taking he said he is in hospital and having a few procedures done. Follow up later this week he won't know if he is still taking until after discharge tomorrow. Misha Voss CPhT [facility] 02/19/24 4:31 PMKind[facility]07-01-2024 NotePatient said the delivery has been scheduled and is on its way. Aware they have to [facility] need a [facility]. Have no further questions. Will no longer follow up. Darnell Razo [facility] 10/25/23 10:27 [facility]07-01-2024 NoteSubmitted a PA for Xifaxan on [facility] awaiting determination. Once we get [...] PAP once we have claim. [facility] 05/08/24 2:01 [facility]07-01-2024 Note Attestation signed by Iman Rincon PharmD at 04/25/2024 9:36 AM Iman Rincon PharmD, [facility] Outpatient Clinical Pharmacist [facility] [id number] 04/25/24 9:36 AM Called [facility] to check the status of PAP, application is still pending review. F/U with sally to check status of PAP application. Juve Araya [facility] 04/15/24 10:46 [facility]07-01-2024 NoteReceived a fax from [place] stating that they need the image of the backside of the patient's medical insurance card and a image of the script with the patient's name and drug on it. Submitted into PixelSteam. Awaiting on determination. Darnell Razo, [facility] 03/07/24 9:05 [facility]07-01-2024 NoteXifaxan patient assistance application approved through [employer] [place]. Approval good through 04/16/2025. Patient Case ID/Approval Number: [id number]. [x] Write on board [x] PA Expiration Spreadsheet Called patient, they will call PAP to refill when they need to. Modesto Neff, [facility] [phone] 05/21/24 at 8:13 [facility]07-01-2024 NoteCalled to check on the status and the appeal has not been received yet. I was told that will take some time. Yamini Camarillo, [facility] 05/13/24 11:02 [facility]07-01-2024 NotePAP application is still pending benefit review. Awaiting determination check later for status update. Misha Voss , [facility] 04/04/24 1:40 [facility]06-28-2024 NoteI called and discussed the results of his labwork with the patient. With his sodium level being slightly below baseline, we will have him repeat his labs prior to EGD tomorrow. He expressed clear understanding. If he continues to have low sodium, we may need to consider holding diuretics.[facility]06-28-2024 Note Attestation signed by Irena Johnson MD [...] documentation in this note for specific details. [facility] Gastroenterology Follow-up visit CHIEF COMPLAINT Chief Complaint [...] function of stomach (more content not included)... [facility]05-30-2024 NoteCT ordered to rule out chronic mesenteric ischemiaUnHighland District Hospital02-14-2024 History of Present illness Narrative* Brayan [...] surgery has been scheduled. documented in this encounterGeneral [facility] Wood Army Community [id number] History of Present illness Narrative* Brayan Alves DO - 05/18/2023 2:00 PM EST Images from the original note were not included. Loyd Blandon 1955 Loyd Blandon is a 67 y.o. male presents with chief complaint of painful hemorrhoid HPI: HPI Huber states he has a hemorrhoid for the last 5-6 weeks. He was seen by Dr. Carroll's [employer] who referred him to our office. Huber [...] 3 weeks for recheck documented in this encounterGeneral Leonard Wood Army Community [id number] Evaluation note* Encounter Date Diagnosis Assessment Notes Treatment Notes Treatment Clinical Notes Apr, Nausea (ICD-10 - R11.0) Apr,irrhosis of liver (ICD-10 - K74.60) Apr,Early satiety (ICD-10 - R68.81) [facility] Other 12-28-2023 Evaluation note* Encounter Date Diagnosis Assessment Notes Treatment Notes Treatment Clinical Notes Mar, Lower abdominal pain (ICD-10 - R 10.30) [facility] Other 12-27-2023 Evaluation note* Encounter Date Diagnosis [...] (ICD-10 - R68.81) Mar,loating (ICD-10 - R14.0) [facility] Other 07-27-2023 Evaluation note* Encounter Date Diagnosis [...] a time. Pt advised to start probiotic (Panjo) Pt RTO 3 MONTHS [facility] Other 06-07-2023 Procedure noteMercy HealthEvaluation + Plan note No data available for this section [facility] Evaluation noteNo assessment information available [facility] Work Phone: Evaluation noteNo InformationNortWarren General Hospital [employer] Other Evaluation note* Diagnosis Fissure in ano Anal fissure documented in this encounter [facility] HealthcareEvaluation note* Diagnosis Fissure in ano- Primary Anal fissure documented in this encounter [facility] HealthcareEvaluation note* Diagnosis Onset Date Resolution Status Cirrhosis acuteDyspepsia and disorder of function of stomachacuteEmesisacuteEsophageal dysmotilityacute [facility] Work Phone: Evaluation note* Diagnosis Age-related nuclear cataract of both eyes- Primary documented in this encounter [facility] HealthcareEvaluation note* Diagnosis Laennec's cirrhosis (HCC)- Primary Alcoholic cirrhosis of liver [facility] encounter [facility]* Diagnosis Cirrhosis of liver with ascites, unspecified hepatic cirrhosis type (CMS/HCC)- Primary Dizziness Dizziness and giddiness Abdominal distension Flatulence, eructation, and gas pain QUESADA (dyspnea on exertion) Other dyspnea and respiratory abnormality Gastroesophageal reflux disease without esophagitis Esophageal reflux Other ascites Secondary esophageal varices without bleeding (CMS/HCC) documented in this encounter [facility] HealthcareEvaluation note* Diagnosis Pleural effusion associated with [...] liver disease (MASLD) documented in this encounter [facility]* Diagnosis Encounter for education- Primary Counseling [...] liver disease (MASLD) documented in this encounter [facility]* Diagnosis Dietary counseling and surveillance- Primary Dietary surveillance and counseling Lesion of liver greater than 1 cm in diameter Alcoholic cirrhosis of liver with ascites (HCC) Alcoholic cirrhosis of liver Liver transplant candidate Metabolic dysfunction-associated steatotic liver disease (MASLD) Awaiting organ transplant Awaiting organ transplant status Severe protein-calorie malnutrition (HCC) Other severe protein-calorie malnutrition [facility] Diagnosis Pleural effusion associated with hepatic disorder Other specified forms of effusion, except tuberculous Shortness of breath Lesion of liver greater than 1 cm in diameter Alcoholic cirrhosis of liver with ascites (HCC) Alcoholic cirrhosis of liver Liver transplant candidate Metabolic dysfunction-associated steatotic liver disease (MASLD) [facility]* Diagnosis Pleural effusion associated with [...] Unspecified pleural effusion documented [facility] [place] [facility]* Diagnosis Pleural effusion associated with hepatic disorder- Primary Other specified forms of effusion, except tuberculous Shortness of breath Alcoholic cirrhosis of liver with ascites (HCC) Alcoholic cirrhosis of liver Liver transplant candidate Pleural effusion Unspecified pleural effusion [facility]* Diagnosis Thrombocytopenia (HCC)- Primary Thrombocytopenia, [...] Unspecified pleural effusion [facility]* Diagnosis Need for vaccination- Primary [...] Unspecified pleural effusion [facility]* Diagnosis Liver transplant candidate- Primary Pleural effusion Unspecified pleural effusion [facility]* Diagnosis Alcoholic cirrhosis of liver [...] Unspecified pleural effusion [facility]* Diagnosis Liver mass- Primary Unspecified disorder of liver Low back pain, unspecified back pain laterality, unspecified chronicity, unspecified whether sciatica present Pleural effusion Unspecified pleural effusion [facility] Primary hypertension- Primary Unspecified essential hypertension Pleural effusion Unspecified pleural effusion documented in this encounter [facility]* Diagnosis Dyspnea, unspecified type- Primary Pleural effusion Unspecified pleural effusion documented in this encounter [facility]* Diagnosis Dyspnea, unspecified type Pleural effusion Unspecified pleural effusion documented in this encounter [facility]* Diagnosis Other ascites- Primary Pleural effusion Unspecified pleural effusion [facility]* Diagnosis Pleural effusion associated with hepatic disorder Other specified forms of effusion, except tuberculous Shortness of breath Lesion of liver greater than 1 cm in diameter Alcoholic cirrhosis of liver with ascites (HCC) Alcoholic cirrhosis of liver Liver transplant candidate Metabolic dysfunction-associated steatotic liver disease (MASLD) Pleural effusion Unspecified pleural effusion documented [facility] this [facility]* Diagnosis Unilateral inguinal hernia without obstruction or gangrene, recurrence not specified- Primary Pleural effusion Unspecified pleural effusion documented in this encounter [facility]* Diagnosis Liver transplant candidate- Primary Pleural effusion Unspecified pleural effusion documented in this encounter [facility]* Diagnosis Pleural effusion associated with hepatic disorder- Primary Other specified forms of effusion, except tuberculous documented in this encounter [facility]* Diagnosis Pleural effusion associated with hepatic disorder- Primary Other specified forms of effusion, except tuberculous documented in this encounter [facility]* Diagnosis Coronary artery disease involving [place] coronary artery of [place] heart, unspecified whether angina present- Primary documented in this encounter [facility]* Diagnosis Other ascites documented in this encounter [facility]* Diagnosis Liver transplant candidate- Primary documented in this encounter [facility]* Diagnosis Unilateral inguinal hernia without obstruction or gangrene, recurrence not specified documented in this encounter [facility] note* Diagnosis Low back pain, unspecified back pain laterality, unspecified chronicity, unspecified whether sciatica present documented in this encounter [facility]* Diagnosis Low back pain, unspecified back pain laterality, unspecified chronicity, unspecified whether sciatica present documented in this encounter [facility]* Diagnosis Low back pain, unspecified back pain laterality, unspecified chronicity, unspecified whether sciatica present documented [facility] this encounter [facility]* Diagnosis Pathological fracture, other site, initial encounter for fracture- Primary documented in this encounter [facility]* Diagnosis Other ascites- Primary documented in this encounter [facility]* Diagnosis Liver transplant candidate- Primary Pleural effusion Unspecified pleural effusion documented [facility] this encounter [facility]* Diagnosis Onset Date Resolution Status Admit Date Cirrhosis acuteMarch 2024 11:48am [facility] Work Phone: [facility] note* Diagnosis Other ascites- Primary Pleural effusion Unspecified pleural effusion documented [facility] this encounter [facility]* Diagnosis Pathological fracture, other site, initial encounter for fracture documented in this encounter [facility]* Diagnosis Other ascites documented [facility] this encounter [facility]* Diagnosis 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 Secondary malignant neoplasm of bone and bone marrow documented in this encounter [facility]* Diagnosis Metastatic malignant neoplasm, unspecified site (HCC)- Primary documented in this encounter [facility]* Diagnosis Hepatocellular carcinoma (HCC)- Primary Malignant neoplasm of liver, primary documented in this encounter [facility]* Diagnosis Cirrhosis of liver without ascites, unspecified hepatic cirrhosis type (HCC)- Primary documented in this encounter [facility]* Diagnosis Encounter for screening colonoscopy- Primary Special screening for malignant neoplasms, colon documented in this encounter [facility]* Diagnosis Cirrhosis of liver without ascites, unspecified hepatic cirrhosis type (HCC)- Primary Liver transplant candidate Lesion of liver greater than 1 cm in diameter Alcoholic cirrhosis of liver with ascites (HCC) Alcoholic cirrhosis of liver documented in this encounter [facility]* Diagnosis Aortic root [...] of insulin (CMS/HCC) documented in this encounter [facility]* Diagnosis Abnormal bone scan of thoracic spine- Primary Nonspecific abnormal results of other specified function study documented in this encounter [facility]* Diagnosis Other ascites- Primary documented in this encounter [facility]* Diagnosis Laennec's cirrhosis (HCC)- Primary Alcoholic cirrhosis of liver documented in this encounter [facility]* Diagnosis Liver transplant candidate- Primary documented in this encounter [facility]* Diagnosis Hepatic encephalopathy (HCC)- Primary Hepatic encephalopathy Decompensated cirrhosis (HCC) Pre-operative clearance Preoperative examination, unspecified documented in this encounter [facility]* Diagnosis Liver transplant candidate- Primary Alcoholic cirrhosis of liver with ascites (HCC) Alcoholic cirrhosis of liver documented in this encounter [facility]* Diagnosis Hepatic encephalopathy [...] Abdominal pain, generalized documented in this encounter [facility]* Diagnosis Hepatic [...] of bile duct documented in this encounter [facility]* Diagnosis Hepatic [...] site, group D documented in this encounter [facility] HospitalHistory and physical note Author Lex Carroll [facility] September 21, 2022 8:04amNote Date/TimeJun2022 8:[address] [address] Gastroenterology H&P Signed Patient: Loyd Blandon MR#: [id number] : 1955 Acct:[id number] Age/Sex: 67 / M Adm Date: 3 Loc: Room: Type: [facility] Attending Dr: Lex Carroll MD Copies to: [...] signed by Lex Carroll MD> 09/21/22 0804 [facility] Work Phone: History general Narrative - Reported* Type Description Date Medical History hypertension Medical HistoryGERDSurgical HistorygallbladderSurgical Historyelbow surgery Surgical Historymesh placement [facility] [employer] Other Hospital Discharge instructions Additional Instructions DISCHARGE [...] problems. -Follow up with PCP. -Office number [phone].[facility] Work Phone: Hospital Discharge instructions No data available for this section [facility] Progress note No data available for this section [facility] Reason for referral (narrative)* Outpatient Procedure (Routine) - AuthorizedSpecialtyDiagnoses / ProceduresReferred By Contact Referred To ContactWE[facility] Diagnoses Shortness of breath Liver transplant candidate Procedures ABDOM PARACENTESIS DX/THER W IMAGING GUIDANCE ABDOM PARACENTESIS DX/THER W IMAGING GUIDANCE Dmitri Garg MD [address] [place] [address] [facility] Disease [place] [id number] Referral [facility]Status[facility] DateExpiration DateVisits RequestedVisits [id number] Auto-Generated Referral [facility] for referral (narrative)* Outpatient Procedure (Routine) - ClosedSpecialtyDiagnoses / ProceduresReferred By ContactReferred To Contact [facility] Diagnoses Shortness of breath Liver transplant candidate Procedures ABDOM PARACENTESIS DX/THER W IMAGING GUIDANCE ABDOM PARACENTESIS DX/THER W IMAGING GUIDANCE Dmitri Garg MD [address] [facility] [place] [address] [facility] Disease [address] [place] [address] Referral IDStatusReasonStart DateExpiration DateVisits RequestedVisits [id number] Auto-Generated Referral [facility] for referral (narrative)* Outpatient Procedure (Routine) - [...] W/LEAST 12 LDS W/I&R Jade Arora MD [id number] [place] [address] Referral IDStatusReasonart DateExpiration DateVisits RequestedVisits [id number] Auto-Generated Referral * Transition of Care (Routine) [...] FOLLOW UP APPT ORDER Jade Arora MD [address] [place] [address] [place] [address] Referral IDStatusReasonStandalusia DateExpiration DateVisits RequestedVisits [id number] PCP Requested Referral [facility] for referral (narrative)* Outpatient Procedure (Routine) - AuthorizedSpecialtyDiagnoses / ProceduresReferred By ContactReferred To [facility] Diagnoses Other ascites Procedures ABDOM PARACENTESIS DX/THER W IMAGING GUIDANCE ABDOM PARACENTESIS DX/THER W IMAGING GUIDANCE Dmitri Garg MD [address] [place] [address] [place] [address] Referral IDStatusReasonStart DateExpiration DateVisits RequestedVisits [id number] Auto-Generated Referral [facility] for referral (narrative)* Outpatient Procedure (Routine) - New RequestSpecialtyDiagnoses / ProceduresReferred By ContactReferred To [facility] Diagnoses Pleural effusion associated with hepatic disorder Procedures LUNG DIFFUSION CAPACITY (DLCO) LUNG DIFFUSION CAPACITY (DLCO) DIFFUSING CAPACITY Cheri Guido MD [address] [place] [address] [place] [address] Referral IDStatusAmandaasonart DateExpiration DateVisits RequestedVisits [id number] Request Auto-Generated Referral * Outpatient Procedure (Routine) - New RequestSpecialtyDiagnoses / Procedures Referred By ContactReferred To [facility] Diagnoses Pleural effusion associated with hepatic disorder Procedures SPIROMETRY WITH DILATOR IF OBSTRUCTED SPIROMETRY WITH DILATOR IF OBSTRUCTED BRNCDILAT RSPSE SPMTRY PRE&POST-BRNCDILAT ADMN Cheri Gudio MD [id number] [place] [address] Referral IDStatusReasonStart DateExpiration DateVisits RequestedVisits [id number] Request Auto-Generated Referral [id number] [facility] for referral (narrative)No reason for referral information availableUc Medical Center Ctr Work Phone: [facility] for visit Narrative* Outpatient Procedure (Routine) - ClosedSpecialtyDiagnoses / ProceduresReferred By ContactReferred To ContactWELLSP[facility] Diagnoses Shortness of breath Liver transplant candidate Procedures ABDOM PARACENTESIS DX/THER W IMAGING GUIDANCE ABDOM PARACENTESIS DX/THER W IMAGING GUIDANCE Dmitri Garg MD [address] [place] [address] [facility] [address] [place] [address] Referral IDStatusRipley County Memorial HospitalStart DateExpiration DateVisits RequestedVisits [id number] Auto-Generated Referral [facility] for visit Narrative* Auth/Cert (Routine)Specialty Diagnoses / ProceduresReferred By ContactReferred To ContactADMITTING Diagnoses 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] Procedures THORACENTESIS NEEDLE/CATH PLEURA W/IMAGING THORACENTESIS NEEDLE OR CATHETER ASPIRATION OF THE PLEURAL SPACE W IMAGING GUIDANCE Admitting [address] [place] [address] Referral IDStatusRefreeman health systemStart DateExpiration DateVisits RequestedVisits [id number] [facility] for visit Narrative* Outpatient Procedure (Routine) - ClosedSpecialtyDiagnoses / ProceduresReferred By ContactReferred To Contact [facility] Diagnoses Other ascites Procedures ABDOM PARACENTESIS DX/THER W IMAGING GUIDANCE ABDOM PARACENTESIS DX/THER W IMAGING GUIDANCE Dmitri Garg MD [address] [place] [address] Phone: tel: fax: [place] [address] Referral IDStatusRiple[facility] County Memorial HospitalStandalusia DateExpiration DateVisits RequestedVisits [id number] Auto-Generated Referral / [facility] for visit Narrative* Diagnostic Procedure Only (Routine) - ClosedSpecialtyDiagnoses / ProceduresReferred By ContactReferred To Contact [facility] Diagnoses Unilateral inguinal hernia without obstruction or gangrene, recurrence not specified Procedures US PELVIS LTD US PELVIC NONOBSTETRIC IMAGE DCMTN LIMITED/F/U Dmitri Garg MD [address] [place] [address] Phone: tel: fax: [facility] [place] [address] Referral IDStatusReasonDerby Line DateExpiration DateVisits RequestedVisits [id number] Auto-Generated Referral [facility] for visit Narrative* MRI/CT (Routine) - ClosedSpecialty Diagnoses / ProceduresReferred By ContactReferred To ContactMR IMAGING Diagnoses Low back pain, unspecified back pain laterality, unspecified chronicity, unspecified whether sciatica present Procedures MRI THORACIC SPINE WO/W IVCON MRI SPINAL CANAL THORACIC W/O & W/CONTR Dmitri Thomas MD [address] [place] [address] Phone: tel: fax: [facility] [place] [address] Referral IDStatusReasonDerby Line DateExpiration DateVisits RequestedVisits [id number] Auto-Generated Referral [facility] for visit Narrative* MRI/CT (Routine) - ClosedSpecialty Diagnoses / ProceduresReferred By ContactReferred To ContactMR IMAGING Diagnoses Low back pain, unspecified back pain laterality, unspecified chronicity, unspecified whether sciatica present Procedures MRI LUMBAR SPINE WO/W IVCON MRI SPINAL CANAL LUMBAR W/O & W/CONTR Dmitri Thomas MD [address] [place] [address] Phone: tel: fax: [facility] [place] [address] Referral IDStatusReasonStandalusia DateExpiration DateVisits RequestedVisits [id number] Auto-Generated Referral [facility] for visit Narrative* MRI/CT (Routine) - ClosedSpecialty Diagnoses / ProceduresReferred By ContactReferred To ContactMR IMAGING Diagnoses Pathological fracture, other site, initial encounter for fracture Procedures MRI THORACIC SPINE WO IVCON MRI SPINAL CANAL THORACIC W/O CONTRAST Dmitri Thomas MD [address] [place] [address] Phone: tel: fax: [facility] [place] [address] Referral IDStatusReasonStart DateExpiration DateVisits RequestedVisits [id number] Auto-Generated Referral / [facility] for visit Narrative* Auth/Cert (Routine)Specialty Diagnoses / ProceduresReferred By ContactReferred To ContactADMITTING Diagnoses Pleural effusion Pleural effusion [J90] Procedures THORACENTESIS NEEDLE/CATH PLEURA W/IMAGING THORACENTESIS NEEDLE OR CATHETER ASPIRATION OF THE PLEURAL SPACE W IMAGING GUIDANCE Admitting [address] [place] [address] Referral IDStatusReasonStart DateExpiration DateVisits RequestedVisits [id number] [facility] for visit Narrative* Auth/Cert (Routine)Specialty Diagnoses / ProceduresReferred By ContactReferred To ContactSP INPATIENT Diagnoses Hepatic encephalopathy (HCC) Procedures [facility] H[address] [phone] Phone: tel: Referral IDStatusReasonStart DateExpiration DateVisits RequestedVisits [id number] [facility] for visit Narrative* Auth/Cert - New RequestSpecialty Diagnoses / ProceduresReferred By ContactReferred To Contact [address] [address] Referral IDStatusReasonStandalusia DateExpiration DateVisits RequestedVisits AuthorizedNew Request/ [facility] for visit Narrative* Outpatient Procedure (Routine) - ClosedSpecialtyDiagnoses / ProceduresReferred By ContactReferred To Contact [facility] Diagnoses 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) Procedures ERCP ERCP BILIARY/PANC DUCT STENT EXCHANGE W/DIL&WIRE Ollis, Nick, PA-C [address] [place] [address] Phone: tel: fax: [facility] [address] [place] [address] Referral IDStatusBryantandalusia DateExpiration DateVisits RequestedVisits [id number] Auto-Generated Referral / [facility] for visit Narrative* Auth/Cert - New RequestSpecialty Diagnoses / ProceduresReferred By ContactReferred To Contact [address] [address] Referral IDStatusWendyDerby Line DateExpiration DateVisits RequestedVisits AuthorizedNew Request/ [facility] Chief Complaint and Reason for Visit [...] LUMBAR W/O & W/CONTR Dmitri Thomas MD [address] [place] [address] Imaging [place] [address] Referral IDStatusReasonStart DateExpiration DateVisits RequestedVisits [id number] Request Auto-Generated Referral /[id number] / ProceduresReferred By ContactReferred To Contact IMAGING Diagnoses Low back pain, unspecified back pain laterality, unspecified chronicity, unspecified whether sciatica present Procedures MRI THORACIC SPINE WO/W IVCON MRI SPINAL CANAL THORACIC W/O & W/CONTR Dmitri Thomas MD [address] [place] [address] Mr Imaging [place] [address] Referral IDStatusReasonStart DateExpiration DateVisits RequestedVisits [id number] Request Auto-Generated Referral /[id number] / ProceduresReferred By ContactReferred To Contact IMAGING Diagnoses Low back pain, unspecified back pain laterality, unspecified chronicity, unspecified whether sciatica present Procedures MRI CERVICAL SPINE WO/W IVCON MRI SPINAL CANAL CERVICAL W/O & W/CONTR MATRL Dmitri Garg MD [address] [place] [address] Mr Imaging [place] [address] Referral IDStatusReasonStart DateExpiration DateVisits RequestedVisits [id number] Request Auto-Generated Referral [id number] / ProceduresReferred By ContactReferred To Contact IMAGING Diagnoses Liver mass Procedures MRI LIVER WO/W IVCON MRI ABDOMEN W/O & W/CONTRAST MATERIAL Dmitri Garg MD [address] [place] [address] Mr Imaging [place] [address] Referral IDStatusReasonStart DateExpiration DateVisits RequestedVisits [id number] Request Auto-Generated Referral [id number] / ProceduresReferred By ContactReferred To ContactPulmonary and Critical Care Medicine Diagnoses Pleural effusion associated with hepatic disorder Shortness of breath Lesion of liver greater than 1 cm in diameter Alcoholic cirrhosis of liver with ascites (HCC) Liver transplant candidate Metabolic dysfunction-associated steatotic liver disease (MASLD) Procedures CONSULT TO PULM/CRITICAL CARE OFFICE/OUTPATIENT [facility] 60 MINUTES Dmitri Garg MD [address] [place] [address] Referral IDStatusReasonStart DateExpiration DateVisits RequestedVisits [id number] PCP Requested Referral /[id number] / ProceduresReferred By ContactReferred To ContactCardiology Diagnoses Pleural effusion associated with hepatic disorder Shortness of breath Lesion of liver greater than 1 cm in diameter Alcoholic cirrhosis of liver with ascites (HCC) Liver transplant candidate Metabolic dysfunction-associated steatotic liver disease (MASLD) Procedures CONSULT TO CARDIOLOGY OFFICE/OUTPATIENT [facility] 60 MINUTES Dmitri Garg MD [address] [place] [address] Referral IDStatusReasonStart DateExpiration DateVisits RequestedVisits [id number] PCP Requested Referral /[id number] / ProceduresReferred By ContactReferred To ContactRESPIRATORY INSTITUTE Diagnoses Pleural effusion associated with hepatic disorder Shortness of breath Lesion of liver greater than 1 cm in diameter Alcoholic cirrhosis of liver with ascites (HCC) Liver transplant candidate Metabolic dysfunction-associated steatotic liver disease (MASLD) Procedures SPIROMETRY BASELINE ONLY SPMTRY W/VC EXPIRATORY EDY W/WO MXML VOL VNTJ Dmitri Garg MD [address] [place] [address] [facility] [address] [place] [address] Referral IDStatusReasonStart DateExpiration DateVisits RequestedVisits [id number] Auto-Generated Referral /[id number] / ProceduresReferred By ContactReferred To [facility] Diagnoses Lesion of liver greater than 1 cm in diameter Alcoholic cirrhosis of liver with ascites (HCC) Liver transplant candidate Metabolic dysfunction-associated steatotic liver disease (MASLD) Procedures ECHO ECHO TTHRC R-T 2D W/WOM-MODE COMPL SPEC&COLR D Dmitri Garg MD [address] [place] [address] [facility] [address] [place] [address] Referral IDStatusReasonStart DateExpiration DateVisits RequestedVisits [id number] Auto-Generated Referral 1/[id number] / ProceduresReferred By ContactReferred To ContactCT IMAGING Diagnoses Lesion of liver greater than 1 cm in diameter Alcoholic cirrhosis of liver with ascites (HCC) Liver transplant candidate Metabolic dysfunction-associated steatotic liver disease (MASLD) Procedures CT LIVER W IVCON CT ABDOMEN W/CONTRAST Dmitri Garg MD [address] [place] [address] Ct Imaging [place] [address] Referral IDStatusReasonStart DateExpiration DateVisits RequestedVisits [id number] Auto-Generated Referral [id number] / ProceduresReferred By ContactReferred To ContactCT IMAGING Diagnoses Pleural effusion associated with hepatic disorder Shortness of breath Lesion of liver greater than 1 cm in diameter Alcoholic cirrhosis of liver with ascites (HCC) Liver transplant candidate Metabolic dysfunction-associated steatotic liver disease (MASLD) Procedures CT CHEST WO IVCON DIAGNOSTIC COMPUTED TOMOGRAPHY THORAX W/O CNTRST Dmitri Garg MD [address] [place] [address] Ct Imaging [place] [address] Referral IDStatusReasonDerby Line DateExpiration DateVisits RequestedVisits [id number] Auto-Generated Referral [id number] / ProceduresReferred By ContactReferred To ContactNutrition Diagnoses Lesion of liver greater than 1 cm in diameter Alcoholic cirrhosis of liver with ascites (HCC) Liver transplant candidate Metabolic dysfunction-associated steatotic liver disease (MASLD) Procedures CONSULT TO NUTRITION THERAPY MEDICAL NUTRITION ASSMT&IVNTJ INDIV EACH 15 MD Dmitri Garg MD [address] [place] [address] Referral IDStatusReasonStandalusia DateExpiration DateVisits RequestedVisits [id number] PCP Requested Referral [id number] / ProceduresReferred By ContactReferred To ContactInfectious Diseases Diagnoses Lesion of liver greater than 1 cm in diameter Alcoholic cirrhosis of liver with ascites (HCC) Liver transplant candidate Metabolic dysfunction-associated steatotic liver disease (MASLD) Procedures CONSULT TO INFECTIOUS DISEASES OFFICE/OUTPATIENT [facility] 60 MINUTES Dmitri Garg MD [address] [id number] Referral IDStatusReasonStart DateExpiration DateVisits RequestedVisits [id number] PCP Requested Referral [id number] / ProceduresReferred By ContactReferred To ContactAnesthesiology Diagnoses Pleural effusion associated with hepatic disorder Shortness of breath Lesion of liver greater than 1 cm in diameter Alcoholic cirrhosis of liver with ascites (HCC) Liver transplant candidate Metabolic dysfunction-associated steatotic liver disease (MASLD) Procedures CONSULT TO ANESTHESIOLOGY OFFICE/OUTPATIENT [facility] 60 MINUTES Dmitri Garg MD [address] [phone] Referral IDStatusReasonStart DateExpiration DateVisits RequestedVisits [id number] PCP Requested Referral [id number] / ProceduresReferred By ContactReferred To Contact Diagnoses Pleural effusion associated with hepatic disorder Shortness of breath Lesion of liver greater than 1 cm in diameter Encounter for screening for malignant neoplasm of prostate Alcoholic cirrhosis of liver with ascites (HCC) Liver transplant candidate Metabolic dysfunction-associated steatotic liver disease (MASLD) Procedures CONSULT TO HEPATOLOGY OFFICE/OUTPATIENT [facility] 60 MINUTES Dmitri Garg MD [address] [phone] Referral IDStatusReasonStart DateExpiration DateVisits RequestedVisits [id number] PCP Requested Referral [id number] / ProceduresReferred By ContactReferred To ContactHEART AND VASCULAR INSTITUTE Diagnoses Lesion of liver greater than 1 cm in diameter Alcoholic cirrhosis of liver with ascites (HCC) Liver transplant candidate Metabolic dysfunction-associated steatotic liver disease (MASLD) Procedures ECG COMPLETE ECG ROUTINE ECG W/LEAST 12 LDS W/I&R Dmitri Garg MD [address] [place] [address] [facility] [address] [place] [address] Referral [facility]Status[facility] DateExpiration DateVisits RequestedVisits [id number] Auto-Generated Referral /[id number] / ProceduresReferred By ContactReferred To ContactRadiology Diagnoses Cirrhosis of liver with ascites, unspecified hepatic cirrhosis type (CMS/HCC) Dizziness QUESADA (dyspnea on exertion) Other ascites Procedures Transthoracic Echo (TTE) Complete Xuan Espino PA [address] [facility] [address] [place] [address] [facility] [address] [place] [address] Phone: [phone] Referral IDStatus[facility] DateExpiration DateVisits RequestedVisits [id number] Perform Procedure /[id number] / ProceduresReferred By ContactReferred To ContactTRANSPLANT Diagnoses [...] VENOUS BLOOD VENIPUNCTURE Belia Medina MD, PhD [address] [place] [address] [facility] [address] [id number] Referral IDStatusReasonStart DateExpiration DateVisits RequestedVisits [id number] Review PCP Requested Referral Financial Clearance Required - [employer] /[id number] Additional Source Comments Care Teams (unrecognized sec tion and content) Team Status: Active Member Role Status Dates Sanjay Robledo II MD Primary Care Provider Active Team Status: Inactive Member Role Status Dates Lex Carroll MD Attending Provider Active JUD[facility] Care ProviderActive Team Status: Inactive Member Role Status Dates Sanjay Robledo II MD Primary Care Provider Active [facility] ProviderActive Team Status: Inactive Member Role Status Dates Sanjay Robledo II MD Primary Care Provider Active Arlen Fitzpatrick ProviderActiveTeam MemberRelationshipSpecialty Start DateEnd Date Sanjay Robledo MD [address] [address] PCP - Aet04/17/22 Sanjay Robledo MD [address] [facility] [address] [place] [address] [facility] - [facility]11/23/22Team MemberRelationshipSpecialtyStart Date End Date Sanjay Robledo MD [address] [facility] [address] [place] [address] PCP - Aet04/17/22 Sanjay Robledo MD [address] [facility] [address] [place] [address] PCP - [facility]Re[facility] Phoenixnal Medicine11/23/22 Team Status: Inactive Member Role [...] December 12, 2023 End: December 12, 2023Patriciaeze [facility] , DOAttending ProviderActiveStart: December 12, 2023 End: December 12, 2023 Team Status: Inactive Member Role Status Dates Sanjay Robledo II MD Primary Care Provider Active Start: December 08, 2023 End: December 08, 2023Patriciaeze [facility] , DOAttending ProviderActiveStart: December 08, 2023 [...] MemberRelationshipSpecialtyStart DateEnd Date Sanjay Robledo MD [address] [facility] [address] [place] [address] PCP - [facility]04/17/22 Sanjay Robledo MD [address] [place] [address] [place] [address] [facility] - [facility]11/23/22Te MemberRelationshipSpecialtyStart Date End Date Sanjay Robledo MD [address] [facility] [address] [place] [address] [facility] - [facility]04[facility]17/22 Sanjay Robledo MD [address] [place] [address] [place] [address] PCP - GeneralInternal Medicine11/23/22Team MemberRelationshipSpecialtyStart Date End Date Sanjay Robledo MD [address] [place] [address] [place] [address] PCP - [employer]04/17/22 Sanjay Robledo MD [address] [place] [address] [place] [address] PCP - GeneralInternal Medicine11/23/22Te MemberRelationshipSpecialtyStart Date End Date Irena Johnson MD [address] [place] [address] [place] [address] OlsyvttgrOcsepanyegjpufsc24/26/24Te MemberRelationshipSpecialtyStart DateEnd Date Sanjay Robledo MD [address] [place] [address] [place] [address] PCP - [employer]04/17/22 Sanjay Robledo MD [address] [place] [address] [place] [address] PCP - GeneralInternal Medicine11/23/22Te MemberRelationshipSpecialtyStart Date End Date Irena Johnson MD [address] [place] [address] [place] [address] GnzzmhrqvHtztfmbeicdoicqd44/26/24Team MemberRelationshipSpecialtyStart DateEnd Date Irena Johnson MD [address] [place] [address] [place] [address] AorzdjkqvZfgenianutcjeqgj66/26/24Team MemberRelationshipSpecialtyStart DateEnd Date Sanjay Robledo MD [address] [place] [address] [place] [address] PCP - [facility]04/17/22 Sanjay Robledo MD [address] [place] [address] [place] [address] PCP - [facility]11/23/22Team MemberRelationshipSpecialtyStart Date End Date Sanjay Robledo MD [address] [place] [address] [place] [address] PCP - [facility]04/17/22 Sanjay Robledo MD [address] [place] [address] [place] [address] PCP - [facility]11/23/22Te MemberRelationshipSpecialtyStart Date End Date Sanjay Robledo MD [address] [place] [address] [place] [address] PCP - [facility]04/17/22 Sanjay Robledo MD [address] [place] [address] [place] [address] PCP - [facility]11/23/22Team MemberRelationshipSpecialtyStart Date End Date Irena Johnson MD [address] [place] [address] [place] [address] IfbbiqvwpCiapujaoxvyndqdo46/26/24Team MemberRelationshipSpecialtyStart DateEnd Date Irena Johnson MD [address] [place] [address] [place] [address] FarwowbikAqnhqfkjcarbpuor98/26/24Te MemberRelationshipSpecialtyStart DateEnd Date Irena Johnson MD [address] [place] [address] [place] [address] IxnmcoogrPyjbkcrfbcxcvuwf99/26/24Te MemberRelationshipSpecialtyStart DateEnd Date Irena Johnson MD [address] [place] [address] [place] [address] ZmqhsdjuxRjklkyrcxltugpbf18/26/24Te MemberRelationshipSpecialtyStart DateEnd Date Irena Johnson MD [address] [place] [facility] [place] [address] UhtmqyqwmLqcmysdrwaspvgib79/26/24Te MemberRelationshipSpecialtyStart DateEnd Date Irena Johnson MD [address] [place] [facility] [place] [address] RmrmjijagPhjegcdfkmkmigan12/26/24Te MemberRelationshipSpecialtyStart DateEnd Date Irena Johnson MD [address] [place] [address] [place] [address] MtnmpixfpXfadocgfknzpnwqz31/26/24Te MemberRelationshipSpecialtyStart DateEnd Date Irena Johnson MD [address] [place] [address] [place] [address] FpdkngiwsQtcdessradgwmvea79/26/24Team MemberRelationshipSpecialtyStart DateEnd Date Irena Johnson MD [address] [place] [address] [place] [address] YgypmxmnzFbvbfyimzyxldmyq34/26/24Team MemberRelationshipSpecialtyStart DateEnd Date Irena Johnson MD [address] [place] [address] [place] [address] AntgpdlihGrzmkmyojpmficgd89/26/24Te MemberRelationshipSpecialtyStart DateEnd Date Irena Johnson MD [address] [place] [facility] [place] [address] CohbipjvtHtzhcahlvurbeoxc31/26/24Team MemberRelationshipSpecialtyStart DateEnd Date Irena Johnson MD [address] [place] [facility] [place] [address] SpvjdmnfuYziqyiyzbhbtlehx98/26/24Team MemberRelationshipSpecialtyStart DateEnd Date Irena Johnson MD [address] [place] [address] [place] [address] XjeebwldlFfeawnvymtplqdqu87/26/24Team MemberRelationshipSpecialtyStart DateEnd Date Irena Johnson MD [address] [place] [address] [place] [address] UodmxsyhoZyabnxsycdyyhszd39/26/24Team MemberRelationshipSpecialtyStart DateEnd Date Irena Johnson MD [address] [place] [address] [place] [address] YcrfxcozkQrmsovlsjpywoceb22/26/24 Jade Arora MD [address] [place] [address] Primary Staff PhysicianCardiology05/02/24Team MemberRelationshipSpecialtyStart DateEnd Date Irena Johnson MD [address] [place] [address] [place] [address] RgncrqepgGfhkqknqzyundpbg47/26/24 Jade Arora MD [address] [place] [address] Primary Staff PhysicianCardiology05/02/24Team MemberRelationshipSpecialtyStart DateEnd Date Irena Johnson MD [address] [place] [address] [place] [address] OublouslaCiodaysicoogdggz02/26/24 Jade Arora MD [address] [place] [address] Primary Staff PhysicianCardiology05/02/24Team MemberRelationshipSpecialtyStart DateEnd Date Irena Johnson MD [address] [facility] [address] [place] [address] IguvsruziBagxjsuskdxgdjmi99/26/24 Jade Arora MD [address] [place], [place] [address] Primary Staff PhysicianCardiology05/02/24Team MemberRelationshipSpecialtyStart DateEnd Date Irena Johnson MD [address] [place] [address] [place] [address] MxxhemffmXrjakdlrckzaffvg40/26/24Te MemberRelationshipSpecialtyStart DateEnd Date Sanjay Robledo MD [address] [place] [address] [place] [address] PCP - [employer]04/17/22 Sanjay Robledo MD [address] [place] [address] [place] [address] PCP - GeneralInternal Medicine11/23/22Team MemberRelationshipSpecialtyStart Date End Date Irena Johnson MD [address] [place] [address] [place] [address] WessyehwgVvnhwkkuainghyzh47/26/24 Jade Arora MD [address] [place] [address] Primary Staff PhysicianCardiology05/02/24Team MemberRelationshipSpecialtyStart DateEnd Date Sanjay Robledo MD [address] [place] [address] [place] [address] PCP - [employer]04/17/22 Sanjay Robledo MD 112 [facility] [address] [place] [address] PCP - GeneralInternal Medicine11/23/22Team MemberRelationshipSpecialtyStart Date End Date Irena Johnson MD [address] [place] [address] [place] [address] PtbjiewrxUsrfsuwmmopocxcl53/26/24 Jade Arora MD [address] [place], [place] [address] Primary Staff PhysicianCardiology05/02/24Te MemberRelationshipSpecialtyStart DateEnd Date Irena Johnson MD [address] [place] [address] [place] [address] BqlbkstraHgaocoevcitbjqlu79/26/24 Jade Arora MD [address] [place] [address] Primary Staff PhysicianCardiology05/02/24Te MemberRelationshipSpecialtyStart DateEnd Date Irena Johnson MD [address] [place] [address] [place] [address] MddmtwtbuYdqxnfujfxveusob16/26/24 Jade Arora MD [address] [place] [address] Primary Staff PhysicianCardiology05/02/24Team MemberRelationshipSpecialtyStart DateEnd Date Irena Johnson MD [address] [place] [address] [place] [address] MhgmnyyidPgqjgqvtocynyzvx99/26/24 Jade Arora MD [address] [place] [address] Primary Staff PhysicianCardiology05/02/24Team MemberRelationshipSpecialtyStart DateEnd Date Irena Johnson MD [address] [place] [address] [place] [address] KhswgsdvuXlyupzuryrnumqwv97/26/24 Jade Arora MD [address] [place] [address] Primary Staff PhysicianCardiology05/02/24Team MemberRelationshipSpecialtyStart DateEnd Date Irena Johnson MD [address] [place] [address] [place] [address] FffziqckrCbionttugpchiazl13/26/24 Jade Arora MD [address] [place] [address] Primary Staff PhysicianCardiology05/02/24Team MemberRelationshipSpecialtyStart DateEnd Date Irena Johnson MD [address] [place] [address] [place] [address] YgyomsfytVqmuxkbsdghshdxz37/26/24 Jade Arora MD [address] [place] [address] Primary Staff PhysicianCardiology05/02/24Team MemberRelationshipSpecialtyStart DateEnd Date Irena Johnson MD [address] [place] [address] [place] [address] DzcarmncwJaxkbkwqrtzhwchb69/26/24Team MemberRelationshipSpecialtyStart DateEnd Date Sanjay Robledo II, MD [address] [facility] [address] [place] [address] PCP - GeneralInternal Medicine05/28/24 Irena Johnson MD [address] [place] [address] [place] [address] PmkiitpvcNwpctqoopndxbivq81/26/24 Jade Arora MD [address] [place] [address] Primary Staff PhysicianCardiology05/02/24Team MemberRelationshipSpecialtyStart DateEnd Date Sanjay Robledo II, MD [address] [place] [address] [place] [address] PCP - GeneralInternal Medicine05/28/24 Irena Johnson MD [address] [place] [address] [place] [address] KnchssetkXxthcajctjavjrsb70/26/24 Jade Arora MD [address] [place] [address] Primary Staff PhysicianCardiology05/02/24Team MemberRelationshipSpecialtyStart DateEnd Date Sanjay Robledo II, MD [address] [facility] [address] [place] [address] PCP - GeneralInternal Medicine05/28/24 Irena Johnson MD [address] [place] [address] [place] [address] ZcvkuwpifVqrsfgbdqqjunant16/26/24 Jade Arora MD [address] [place] [place] [address] Primary Staff PhysicianCardiology05/02/24Team MemberRelationshipSpecialtyStart DateEnd Date Sanjay Robledo II, MD [address] [address] PCP - GeneralInternal Medicine05/28/24 Irena Johnson MD [address] [place] [address] [place] [address] KuvnlemnlInjrpcfjbekzlbvv50/26/24 Jade Arora MD [address] [place] [address] Primary Staff PhysicianCardiology05/02/24Team MemberRelationshipSpecialtyStart DateEnd Date Sanjay Robledo II, MD [address] [place] [address] [place] [address] PCP - GeneralInternal Medicine05/28/24 Irena Johnson MD [address] [place] [address] [place] [address] AugfcayreYgsebuzzgydvnjuv22/26/24 Jade Arora MD [address] [place] [address] Primary Staff PhysicianCardiology05/02/24Team MemberRelationshipSpecialtyStart DateEnd Date Sanjay Robledo II, MD [address] [facility] [address] [place] [address] PCP - GeneralInternal Medicine05/28/24 Irena Johnson MD [address] [place] [address] [place] [address] GydrsxeazEzoeikaftpmrjjlr30/26/24 Jade Arora MD [address] [place] [address] Primary Staff PhysicianCardiology05/02/24Team MemberRelationshipSpecialtyStart DateEnd Date Sanjay Robledo II, MD [address] [place] [address] [place] [address] PCP - GeneralInternal Medicine05/28/24 Irena Johnson MD [address] [place] [address] PuitjqqfyPlxlwykzvwdgefzj72/26/24 Jade Arora MD [address] [place], [place] [address] Primary Staff PhysicianCardiology05/02/24Team MemberRelationshipSpecialtyStart DateEnd Date Sanjay Robledo MD [address] [facility] 110 [place] [address] PCP - [employer]et[employer]04/17/22 Sanjay Robledo MD [address] [facility] 110 [place] [address] PCP - GeneralInternal Medicine11/23/22Team MemberRelationshipSpecialtyStart Date End Date Sanjay Robledo II, MD [address] [facility] 110 [place] [address] PCP - GeneralInternal Medicine05/28/24 Irena Johnson MD [address] [place] [address] QgqcdewuuBhbacqgnitznuwhx82/26/24 Jade Arora MD [address] [place] [address] Primary Staff PhysicianCardiology05/02/24Team MemberRelationshipSpecialtyStart DateEnd Date Sanjay Robledo II, MD [address] [facility] [address] [place] [address] PCP - GeneralInternal Medicine05/28/24 Irena Johnson MD [address] [place] [address] AxnaanvsjGbhzxodphzqftijz64/26/24 Jade Arora MD [address] [place] [address] Primary Staff PhysicianCardiology05/02/24Team MemberRelationshipSpecialtyStart DateEnd Date Sanjay Robledo II, MD [address] [facility] [address] [place] [address] PCP - GeneralInternal Medicine05/28/24 Irena Johnson MD [address] [place] [address] HyisxgufdBhkatrsbgjhigvos68/26/24 Jade Arora MD [address] [place], [place] [address] Primary Staff PhysicianCardiology05/02/24Te MemberRelationshipSpecialtyStart DateEnd Date Sanjay Robledo II, MD 112 [facility] 110 [place] [address] PCP - GeneralInternal Medicine05/28/24 Irena Johnson MD [address] [place] [address] OymfrfzxbRqabmppgdpodwxnu71/26/24 Jade Arora MD [address] [place], [place] [address] Primary Staff PhysicianCardiology05/02/24Team MemberRelationshipSpecialtyStart DateEnd Date Sanjay Robledo II, MD [address] [place] [address] PCP - GeneralInternal Medicine05/28/24 Irena Johnson MD [address] [place] [address] WasqypcemTvumoovlrzenmkbl04/26/24 Jade Arora MD [address] [place] [address] Primary Staff PhysicianCardiology05/02/24Team MemberRelationshipSpecialtyStart DateEnd Date Sanjay Robledo II, MD [address] [facility] [address] [place] [address] PCP - GeneralInternal Medicine05/28/24 Irena Johnson MD [address] [place] [address] XxnobbieeExiojfcmfdwnxrxq00/26/24 Jade Arora MD [address] [place] [address] Primary Staff PhysicianCardiology05/02/24Team MemberRelationshipSpecialtyStart DateEnd Date Sanjay Robledo II, MD [address] [place] [address] [place] [address] PCP - GeneralInternal Medicine05/28/24 Irena Johnson MD [address] [place] [address] SwtlwfqxmVnxpxitcyrxbabcb37/26/24 Jade Arora MD [address] [place] [address] Primary Staff PhysicianCardiology05/02/24Team MemberRelationshipSpecialtyStart DateEnd Date Sanjay Robledo II, MD 112 [facility] [address] [place] [address] PCP - GeneralInternal Medicine05/28/24 Irena Johnson MD [address] [place] [address] QqentmemgTvbejxzyzyqncboa66/26/24 Jade Arora MD [address] [place], [place] [address] Primary Staff PhysicianCardiology05/02/24Te MemberRelationshipSpecialtyStart DateEnd Date Sanjay Robledo II, MD 112 [facility] [address] [place] [address] PCP - GeneralInternal Medicine05/28/24 Irena Johnson MD [address] [place] [address] CclralnjnXcbgshsuvzzofmaf23/26/24 Jade Arora MD [address] [place] [address] Primary Staff PhysicianCardiology05/02/24 Team Status: Inactive Member Role Status Dates Irena Johnson MD Attending Provider Active Start : June 19, 2024 End: June 19, 2024Sanjay Robledo II [facility] ProviderActiveStart: June 19, 2024 End: June 19, 2024Team MemberRelationshipSpecialtyStart DateEnd Date Sanjay Robledo II, MD [address] [facility] [address] [place] [address] PCP - GeneralInternal Medicine05/28/24 Irena Johnson MD [address] [place] [address] NmnoiqwkxOxiuawvxriwqmmty10/26/24 Jade Arora MD [address] [place] [address] Primary Staff PhysicianCardiology05/02/24Team MemberRelationshipSpecialtyStart DateEnd Date Sanjay Robledo II, MD 112 [facility] [address] [place] [address] PCP - GeneralInternal Medicine05/28/24 Irena Johnson MD [address] [place] [address] GdaldqtcfYwdiarbzfkdnnvdd02/26/24 Jade Arora MD [address] [place] [address] Primary Staff PhysicianCardiology05/02/24Team MemberRelationshipSpecialtyStart DateEnd Date Sanjay Robledo II, MD [address] [place] [address] PCP - GeneralInternal Medicine05/28/24 Irena Johnson MD [address] [place] [address] TxctmxdzkJjksxxhympeoxouo80/26/24 Jade Arora MD [address] [place], [place] 1982395 Primary Staff PhysicianCardiology05/02/24Team MemberRelationshipSpecialtyStart DateEnd Date Sanjay Robledo II, MD [address] [facility] [address] [place] [address] PCP - GeneralInternal Medicine05/28/24 Irena Johnson MD [address] [place] [address] KxnnnlrfcZhputrscokhqxvrl55/26/24 Jade Arora MD [address] [place] [address] Primary Staff PhysicianCardiology05/02/24Team MemberRelationshipSpecialtyStart DateEnd Date Sanjay Robledo II, MD [address] [facility] 110 [place] [address] PCP - GeneralInternal Medicine05/28/24 Irena Johnson MD [address] [place] [address] AbxibyilsCqulqydocxwmspdi64/26/24 Jade Arora MD [address] [place] [address] Primary Staff PhysicianCardiology05/02/24Team MemberRelationshipSpecialtyStart DateEnd Date Sanjay Robledo II, MD [address] [facility] [address] [place] [address] PCP - GeneralInternal Medicine05/28/24 Irena Johnson MD [address] [place] [address] YmzectofiVldsiybewwlqthfq23/26/24 Jade Arora MD [address] [place] [address] Primary Staff PhysicianCardiology05/02/24Team MemberRelationshipSpecialtyStart DateEnd Date Sanjay Robledo II, MD 112 [facility] [address] [place] [address] PCP - GeneralInternal Medicine05/28/24 Irena Johnson MD [address] [place] [address] PagxwmhnlFnnhkmpyfshfqfih75/26/24 Jade Arora MD [address] [place] [address] Primary Staff PhysicianCardiology05/02/24 Team Status: Inactive Member Role Status Dates Sanjay Robledo II MD Primary Care Provider Active Start: July 30, 2024 End: July 30, 2024[facility] ProviderActiveStart: July 30, 2024 End: July 30, 2024Team MemberRelationshipSpecialtyStart DateEnd Date Sanjay Robledo II, MD [address] [place] [address] [facility] - [facility] Phoenixnal Medicine05/28/24 Irena Johnson MD [address] [place] [address] VloyniyquWcdniimzjkkzygnb82/26/24 Jade Arora MD [address] [place] [address] Primary Staff PhysicianCardiology05/02/24Team MemberRelationshipSpecialtyStart DateEnd Date Sanjay Robledo II, MD [address] [facility] [address] [place] [address] PCP - [facility]Re[facility] Phoenixnal Medicine05/28/24 Irena Johnson MD [address] [place] [address] SydugijnhSekeqzykqddvlhns19/26/24 Jade Arora MD [address] [place] [address] Primary Staff PhysicianCardiology05/02/24Team MemberRelationshipSpecialtyStart DateEnd Date Sanjay Robledo II, MD [address] [facility] [address] [place] [address] PCP - GeneralInternal Medicine05/28/24 Irena Johnson MD [address] [place] [address] IpybjdjoxRtszxqcensnspvgb08/26/24 Jade Arora MD [address] [place] [address] Primary Staff PhysicianCardiology05/02/24Team MemberRelationshipSpecialtyStart DateEnd Date Sanjay Robledo II, MD [address] [facility] [address] [place] [address] PCP - GeneralInternal Medicine05/28/24 Irena Johnson MD [address] [place] [address] DxnybvgwqDggeexwhpbyobzlu73/26/24 Jade Arora MD [address] [place] [address] Primary Staff PhysicianCardiology05/02/24Team MemberRelationshipSpecialtyStart DateEnd Date Sanjay Robledo II, MD [address] [facility] [address] [place] [address] PCP - GeneralInternal Medicine05/28/24 Irena Johnson MD [address] [place] [address] JkojnjlvvCemhdcixagyhyubx46/26/24 Jade Arora MD [address] [place] [address] Primary Staff PhysicianCardiology05/02/24Team MemberRelationshipSpecialtyStart DateEnd Date Sanjay Robledo MD [address] [place] [address] PCP - [employer]et[employer]04/17/22 Sanjay Robledo MD [address] [facility] [address] [place] [address] PCP - GeneralInternal Medicine11/23/22Team MemberRelationshipSpecialtyStart Date End Date Sanjay Robledo II, MD [address] [facility] 110 [place] [address] PCP - GeneralInternal Medicine05/28/24 Irena Johnson MD [address] [place] [address] GxgktcgeiRxkqbhryzkfpyukd93/26/24 Jade Arora MD [address] [place] [address] Primary Staff PhysicianCardiology05/02/24Team MemberRelationshipSpecialtyStart DateEnd Date Sanjay Robledo II, MD [address] [facility] [address] [place] [address] PCP - GeneralInternal Medicine05/28/24 Irena Johnson MD [address] [place] [address] GweaukjfhVoamkozkfcyirsxw30/26/24 Jade Arora MD [address] [place] [address] Primary Staff PhysicianCardiology05/02/24Team MemberRelationshipSpecialtyStart DateEnd Date Sanjay Robledo II, MD [address] [place] [address] PCP - GeneralInternal Medicine05/28/24 Irena Johnson MD [address] [place] [address] PodajdgjmGnrcqcrldcrdqbsp78/26/24 Jade Arora MD [address] [place] [address] Primary Staff PhysicianCardiology05/02/24Team MemberRelationshipSpecialtyStart DateEnd Date Sanjay Robledo MD [address] [place] [address] PCP - [employer]04/17/22 Sanjay Robledo MD [address] [place] [address] PCP - GeneralInternal Medicine11/23/22Team MemberRelationshipSpecialtyStart Date End Date Sanjay Robledo II, MD [address] [place] [address] PCP - GeneralInternal Medicine05/28/24 Irena Johnson MD [address] [place] [address] ZwpguhgkqTyzosfavsgmyocll34/26/24 Jade Arora MD [address] [place], [place] [address]95 Primary Staff PhysicianCardiology05/02/24Team MemberRelationshipSpecialtyStart DateEnd Date Sanjay Robledo MD [address] [place] [address] PCP - [employer]04/17/22 Sanjay Robledo MD [address] [facility] [address] [place] [address] PCP - GeneralInternal Medicine11/23/22Team MemberRelationshipSpecialtyStart Date End Date Sanjay Robledo II, MD [address] [place] [address] PCP - GeneralInternal Medicine05/28/24 Irena Johnson MD [address] [place] [address] XzaaligfmZuagedaiizaoljde96/26/24 Jade Arora MD [address] [place] [address] [place], [place] [address] Primary Staff PhysicianCardiology05/02/24Team MemberRelationshipSpecialtyStart DateEnd Date Sanjay Robledo II, MD [address] [place] [address] PCP - GeneralInternal Medicine05/28/24 Irena Johnson MD [address] [place] [address] QzkqgzlriAubhwyctbmepbxrr84/26/24 Jade Arora MD [address] [place] [address] Primary Staff PhysicianCardiology05/02/24Team MemberRelationshipSpecialtyStart DateEnd Date Sanjay Robledo II, MD 112 [facility] [address] [place] [address] PCP - GeneralInternal Medicine05/28/24 Irena Johnson MD [address] [place] [address] EfbxlisznZjnmpkacdbfwhwpe32/26/24 Jade Arora MD [address] [place] [address] Primary Staff PhysicianCardiology05/02/24 Carina Ziegler, [facility] [address] [place] [address] Registered NurseTransplant Center09/17/24Team MemberRelationshipSpecialtyStart DateEnd Date Sanjay Robledo II, MD [address] [facility] [address] [place] [address] PCP - GeneralInternal Medicine05/28/24 Irena Johnson MD [address] [place] [address] UdlebruzgWdnqzvxtxzcfavon73/26/24 Jade Arora MD [address] [place] [address] Primary Staff PhysicianCardiology05/02/24 Carina Ziegler, [facility] [address] [place] [address] Registered NurseTransplant [place]09/17/24Team MemberRelationshipSpecialtyStart DateEnd Date Sanjay Robledo II, MD [address] [facility] [address] [place] [address] PCP - GeneralInternal Medicine05/28/24 Irena Johnson MD [address] [place] [address] QvujbovdcEmklkqaqsbylumiw27/26/24 Jade Arora MD [address] [place] [address] Primary Staff PhysicianCardiology05/02/24 Carina Ziegler RN [facility] [address] [place] [address] Registered NurseTransplant [place]09/17/24Team MemberRelationshipSpecialtyStart DateEnd Date Sanjay Robledo II, MD [address] [facility] [address] [place] [address] PCP - GeneralInternal Medicine05/28/24 Irena Johnson MD [address] [place] [address] FgecyvxfxRiswftlgswynnxlh61/26/24 Jade Arora MD [address] [place] [address] Primary Staff PhysicianCardiology05/02/24 Carina Ziegler, RN [facility] [address] [place] [address] Registered NurseTransplant Center09/17/24Team MemberRelationshipSpecialtyStart DateEnd Date Sanjay Robledo II, MD 112 [facility] [address] [place] [address] PCP - GeneralInternal Medicine05/28/24 Irena Johnson MD [address] [place] [address] ZelxzmksxFuscqxkfixytswqa73/26/24 Jade Arora MD [address] [place] [address] Primary Staff PhysicianCardiology05/02/24 Carina Ziegler, RN [facility] [address] [place] [address] Registered NurseTransplant [place]09/17/24Team MemberRelationshipSpecialtyStart DateEnd Date Sanjay Robledo II, MD [address] [place] [address] [address] [place] [address] PCP - GeneralInternal Medicine05/28/24 Irena Johnson MD [address] [place] [address] MedwdezjzYqhsdqokdtglelby31/26/24 Jade Arora MD [address] [place] [address] Primary Staff PhysicianCardiology05/02/24 Carina Ziegler, [facility] [address] [place] [address] Registered NurseTransplant Center09/17/24Team MemberRelationshipSpecialtyStart DateEnd Date Sanjay Robledo II, MD [address] [address] PCP - GeneralInternal Medicine05/28/24 Irena Johnson MD [address] [place] [address] HnagjanjbPqtuumonudogkbob54/26/24 Jade Arora MD [address] [place] [address] Primary Staff PhysicianCardiology05/02/24 Carina Ziegler RN [facility] [address] [place] [address] Registered NurseTransplant [place]09/17/24Team MemberRelationshipSpecialtyStart DateEnd Date Sanjay Robledo II, MD [address] [place] [address] PCP - GeneralInternal Medicine05/28/24 Irena Johnson MD [address] [place] [address] EclspawfyXlpbeumkdcakcsnz99/26/24 Jade Arora MD [address] [place] [address] Primary Staff PhysicianCardiology05/02/24 Carina Ziegler, RN [facility] [address] [place] [address] Registered NurseTransplant Center09/17/24Team MemberRelationshipSpecialtyStart DateEnd Date Sanjay Robledo II, MD [address] [place] [address] [address] [place] [address] PCP - GeneralInternal Medicine05/28/24 Irena Johnson MD [address] [place] [address] KsamjapyaYitdchykudvbpung94/26/24 Jade Arora MD [address] [place] [address] Primary Staff PhysicianCardiology05/02/24 Carina Ziegler RN [facility] [address] [place] [address] Registered NurseTransplant Center09/17/24Te MemberRelationshipSpecialtyStart DateEnd Date Sanjay Robledo II, MD [address] [place] [address] PCP - GeneralInternal Medicine05/28/24 Irena Johnson MD [address] [place] [address] CabcwbxulYbqaeswtlsublndg36/26/24 Jade Arora MD [address] [place] [address] Primary Staff PhysicianCardiology05/02/24 Carina Ziegler, RN [facility] [address] [place] [address] Registered NurseTransplant Center09/17/24Team MemberRelationshipSpecialtyStart DateEnd Date Sanjay Robledo II, MD [address] [facility] [address] [place] [address] PCP - GeneralInternal Medicine05/28/24 Irena Johnson MD [address] [place] [address] RefdnxvulLvzwngbdsqlnvmmv82/26/24 Jade Arora MD [address] [place] [address] Primary Staff PhysicianCardiology05/02/24 Carina Ziegler RN [facility] [address] [place] [address] Registered NurseTransplant [place]09/17/24Team MemberRelationshipSpecialtyStart DateEnd Date Sanjay Robledo MD [address] [facility] [address] [place] [address] PCP - [employer]04/17/22 Sanjay Robledo MD [address] [facility] [address] [place] [address] PCP - GeneralInternal Medicine11/23/22Team MemberRelationshipSpecialtyStart Date End Date Sanjay Robledo II, MD [address] [facility] [address] [place] [address] PCP - GeneralInternal Medicine05/28/24 Irena Johnson MD [address] [place] [address] JfilwfvswCcftjxsdddmsiltq34/26/24 Jade Arora MD [address] [place] [address] [place] [address] Primary Staff PhysicianCardiology05/02/24 Carina Ziegler, RN [facility] [address] [place] [address] Registered NurseTransplant Center09/17/24Team MemberRelationshipSpecialtyStart DateEnd Date Sanjay Robledo II, MD 112 [facility] [address] [place] [address] PCP - GeneralInternal Medicine05/28/24 Irena Johnson MD [address] [place] [address] GacjujlvsJmqbwnuswypoodas96/26/24 Jade Arora MD [address] [place] [address] Primary Staff PhysicianCardiology05/02/24 Carina Ziegler, RN [facility] [address] [place] [address] Registered NurseTransplant [place]09/17/24Team MemberRelationshipSpecialtyStart DateEnd Date Sanjay Robledo II, MD [address] [address] PCP - GeneralInternal Medicine05/28/24 Irena Johnson MD [address] [place] [address] YjansakrlMvgkzscednamunur04/26/24 Jade Arora MD [address] [place] [address] Primary Staff PhysicianCardiology05/02/24 Carina Ziegler, [facility] [address] [place] [address] Registered NurseTransplant Center09/17/24Team MemberRelationshipSpecialtyStart DateEnd Date Sanjay Robledo MD [address] [facility] [address] [place] [address] PCP - [employer]04/17/22 Sanjay Robledo MD [address] [facility] [address] [place] [address] PCP - GeneralInternal Medicine11/23/22Team MemberRelationshipSpecialtyStart Date End Date Sanjay Robledo II, MD [address] [facility] [address] [place] [address] PCP - GeneralInternal Medicine05/28/24 Irena Johnson MD [facility] [address] [place] [address] NqmshgvvqYjavmlmrvwgxpogc05/26/24 Jade Arora MD [address] [place] [address] Primary Staff PhysicianCardiology05/02/24 Carina Ziegler, [facility] [address] [place] [address] Registered NurseTransplant Center09/17/24Team MemberRelationshipSpecialtyStart DateEnd Date Sanjay Robledo II, MD [address] [facility] [address] [place] [address] PCP - GeneralInternal Medicine05/28/24 Irena Johnson MD [address] [place] [address] CcvykzqajRowbeniwiaftnwsr46/26/24 Jade Arora MD [address] [place] [address] Primary Staff PhysicianCardiology05/02/24 Carina Ziegler, RN [facility] [address] [facility] [address] Registered NurseTransplant Center09/17/24Team MemberRelationshipSpecialtyStart DateEnd Date Sanjay Robledo II, MD 112 [facility] [address] [place] [address] PCP - GeneralInternal Medicine05/28/24 Irena Johnson MD [address] [place] [address] ReqkgbdfrMbufviwdbuqhdupx05/26/24 Jade Arora MD [address] [place] [address] Primary Staff PhysicianCardiology05/02/24 Carina Ziegler, RN [facility] [address] [place] [address] Registered NurseTransplant Center09/17/24Team MemberRelationshipSpecialtyStart DateEnd Date Sanjay Robledo II, MD 112 [facility] [address] [place] [address] PCP - GeneralInternal Medicine05/28/24 Irena Johnson MD [address] [place] [address] DplzfdbofTcvhcdutvoqleugc36/26/24 Jade Arora MD [address] [place] [address] Primary Staff PhysicianCardiology05/02/24 Carina Ziegler, RN [facility] [address] [place] [address] Registered NurseTransplant Center09/17/24Team MemberRelationshipSpecialtyStart DateEnd Date Sanjay Robledo II, MD 112 [facility] [address] [place] [address] PCP - GeneralInternal Medicine05/28/24 Irena Johnson MD [address] [facility] [address] [place] [address] XayepgbeaOcdznwbajyyssfpk02/26/24 Jade Arora MD [address] [place] [address] Primary Staff PhysicianCardiology05/02/24 Carina Ziegler, RN [facility] [address] [place] [address] Registered NurseTransplant [place]09/17/24Team MemberRelationshipSpecialtyStart DateEnd Date Sanajy Robledo II, MD 112 [facility] [address] [place] [address] PCP - GeneralInternal Medicine05/28/24 Irena Johnson MD [address] [place] [address] KitakhsieDhjijnkspnyrjtuu49/26/24 Jade Arora MD [address] [place], [place] [address] Primary Staff PhysicianCardiology05/02/24 Carina Ziegler, [facility] [address] [place] [address] Registered NurseTransplant Center09/17/24Team MemberRelationshipSpecialtyStart DateEnd Date Sanjay Robledo MD [address] [facility] [address] [place] [address] PCP - [employer]04/17/22 Sanjay Robledo MD [address] [place] [address] PCP - GeneralInternal Medicine11/23/22Team MemberRelationshipSpecialtyStart Date End Date Sanjay Robledo II, MD [address] [facility] [address] [place] [address] PCP - GeneralInternal Medicine05/28/24 Irena Johnson MD 3000 [facility] [address] [place] [address] LvlkqefhuHgljxbohwpofptsw99/26/24 Jade Arora MD [address] [place], [place] [address] Primary Staff PhysicianCardiology05/02/24 Carina Ziegler, [facility] [address] [place] [address] Registered NurseTransplant Center09/17/24 [place] [address] [place] [address] PhysicianNephrology11/19/24Team MemberRelationshipSpecialtyStart DateEnd Date Sanjay Robledo II, MD [address] [address] [place] [address] PCP - GeneralInternal Medicine05/28/24 Irena Johnson MD 3000 [facility] [address] [facility] [place] [address] YvtbpdepdSrxrvvbhbfhahbhn39/26/24 Jade Arora MD [address] [place] [address] Primary Staff PhysicianCardiology05/02/24 Carina Ziegler, RN [facility] [address] [place] [address] Registered NurseTransplant Center09/17/24 [place] [address] [place] [address] PhysicianNephrology11/19/24 Team Status: Inactive Member Role Status Dates Albin Suarez , Attending Provider Active S tart: November 19, 2024 End: November 19, 2024Team MemberRelationshipSpecialtyStart DateEnd Date Sanjay Robledo MD [address] [facility] [address] [place] [address] PCP - Aetna04/17/22 Sanjay Robledo MD [address] [facility] [address] [place] [address] PCP - GeneralInternal Medicine11/23/22Team MemberRelationshipSpecialtyStart Date End Date Sanjay Robledo MD [address] [facility] [address] [place] [address] PCP - Aetna04/17/22 Sanjay Robledo MD [address] [facility] [address] [place] [address] PCP - GeneralInternal Medicine11/23/22Team MemberRelationshipSpecialtyStart Date End Date Sanjay Robledo II, MD [address] [facility] [address] [place] [address] PCP - GeneralInternal Medicine05/28/24 Irena Johnson MD [address] [facility] [address] [place] [phone] KxvlyskccHwjfaxvkjfymptks73/26/24 Jade Arora MD [address] [place] [address] Primary Staff PhysicianCardiology05/02/24 Carina Ziegler, LEO [facility] [address] [place] [address] Registered NurseTransplant Center09/17/24 [place] [address] [facility] [address] [place] [address] PhysicianNephrology11/19/24Team MemberRelationshipSpecialtyStart DateEnd Date Sanjay Robledo MD [address] [facility] [address] [place] [address] PCP - Aetna04/17/22 Sanjay Robledo MD [address] [facility] [address] [place] [address] PCP - GeneralInternal Medicine11/23/22Team MemberRelationshipSpecialtyStart Date End Date Sanjay Robledo MD [address] [facility] [address] [place] [address] PCP - Aetna04/17/22 Sanjay Robledo MD [address] [facility] [address] [place] [address] PCP - GeneralInternal Medicine11/23/22Team MemberRelationshipSpecialtyStart Date End Date Sanjay Robledo II, MD [address] [facility] [address] [place] [address] PCP - GeneralInternal Medicine05/28/24 Irena Johnson MD [address] [facility] [address] [place] [phone] ZeyjxtkesDxkhkfzzdbazsiyc45/26/24 Jade Arora MD [address] [place], [place] [id number] Primary Staff PhysicianCardiology05/02/24 Carina Ziegler RN [facility] [address] [place] [address] Registered NurseTransplant Center09/17/24 [place] [address] [facility] [address] [place], [place] [address] PhysicianNephrology11/19/24Team MemberRelationshipSpecialtyStart DateEnd Date Sanjay Robledo II, MD [address] [facility] [address] [place] [address] PCP - GeneralInternal Medicine05/28/24 Irena Johnson MD [address] [facility] [place] [phone] WyystobgwFbiyesmibnqbpaii36/26/24 Jade Arora MD [address] [place] [address] Primary Staff PhysicianCardiology05/02/24 Carina Ziegler RN [facility] [address] [place] [address] Registered NurseTransplant Center09/17/24 [place] [address] [facility] [address] [place], [place] [address] PhysicianNephrology11/19/24Team MemberRelationshipSpecialtyStart DateEnd Date Sanjay Robledo MD [address] [facility] [address] [place] [address] PCP - Aetna04/17/22 Sanjay Robledo MD [address] [facility] [address] [place] [address] PCP - GeneralInternal Medicine11/23/22Team MemberRelationshipSpecialtyStart Date End Date Sanjay Robledo II, MD [address] [facility] [address] [place] [address] PCP - GeneralInternal Medicine05/28/24 Irena Johnson MD [address] [facility] [address] [place] [phone] SjqekrznaUsqufbbhmypxlwdt60/26/24 Jade Arora MD [address] [place] [address] Primary Staff PhysicianCardiology05/02/24 Carina Ziegler RN [facility] [address] [place] [address] Registered NurseTransplant Center09/17/24 [place] [address] [address] [place] [address] PhysicianNephrology11/19/24Team MemberRelationshipSpecialtyStart DateEnd Date Sanjay Robledo MD [address] [facility] [address] [place] [address] PCP - Aetna04/17/22 Sanjay Robledo MD [address] [facility] [address] [place] [address] PCP - GeneralInternal Medicine11/23/22Team MemberRelationshipSpecialtyStart Date End Date Sanjay Robledo MD [address] [facility] [address] [place] [address] PCP - Aetna04/17/22 Sanjay Robledo MD [address] [facility] [address] [place] [address] PCP - GeneralInternal Medicine11/23/22Team MemberRelationshipSpecialtyStart Date End Date Sanjay Robledo MD [address] [facility] [address] [place] [address] PCP - Aetna04/17/22 Sanjay Robledo MD [address] [facility] [address] [place] [address] PCP - GeneralInternal Medicine11/23/22Team MemberRelationshipSpecialtyStart Date End Date Sanjay Robledo MD [address] [facility] [address] [place] [address] PCP - Aetna04/17/22 Sanjay Robledo MD [address] [facility] [address] [place] [address] PCP - GeneralInternal Medicine11/23/22Team MemberRelationshipSpecialtyStart Date End Date Sanjay Robledo MD [address] [facility] [address] [place] [address] PCP - Aet04/17/22 Sanjay Robledo MD [address] [facility] [address] [place] [address] [facility] - [facility]Re[facility] Phoenixnal Medicine11/23/22 REASON FOR VISIT (unrecogniz ed section and content) ReasonCommentspainful hemorrhoidSpecialtyDiagnoses / ProceduresReferred By ContactReferred To ContactGeneral Surgery Diagnoses Unspecified hemorrhoids Procedures [place] OFFICE/OUTPATIENT NEW HIGH MDM 60 MINUTES Rick Ortega MD [address] [facility] [address] [place] [address] [place] [address] [facility] [address] [place] [address] Referral IDStatusReasonStart DateExpiration DateVisits RequestedVisits [id number] Specialty Services Required /[id number] increasingly worse and wants to discuss surgeryAnal [...] W/WO MXML VOL VNTJ Dmitri Garg MD [address] [place] [address] [facility] [address] [place] [address] Referral IDStatusReasonStart DateExpiration DateVisits RequestedVisits [id number] Auto-Generated Referral /[id number] EducationAssessmentSpecialtyDiagnoses / ProceduresReferred By ContactReferred To ContactNutrition Diagnoses Lesion of liver greater than 1 cm in diameter Alcoholic cirrhosis of liver with ascites (HCC) Liver transplant candidate Metabolic dysfunction-associated steatotic liver disease (MASLD) Procedures CONSULT TO NUTRITION THERAPY MEDICAL NUTRITION ASSMT&IVNTJ INDIV EACH 15 MD Dmitri Garg MD [address] [place] [address] Referral IDStatusReasonStart DateExpiration DateVisits RequestedVisits [id number] PCP Requested Referral /[id number] CTSpecialtyDiagnoses / Procedures Referred By ContactReferred To ContactCT IMAGING Diagnoses Lesion of liver greater than 1 cm in diameter Alcoholic cirrhosis of liver with ascites (HCC) Liver transplant candidate Metabolic dysfunction-associated steatotic liver disease (MASLD) Procedures CT LIVER W IVCON CT ABDOMEN W/CONTRAST Dmitri Garg MD [address] [place] [id number] [facility] [place] [address] Referral IDStatusReasonStart DateExpiration DateVisits RequestedVisits [id number] Auto-Generated Referral [id number] / ProceduresReferred By ContactReferred To Contact Diagnoses Pleural effusion associated with hepatic disorder Shortness of breath Lesion of liver greater than 1 cm in diameter Encounter for screening for malignant neoplasm of prostate Alcoholic cirrhosis of liver with ascites (HCC) Liver transplant candidate Metabolic dysfunction-associated steatotic liver disease (MASLD) Procedures CONSULT TO HEPATOLOGY OFFICE/OUTPATIENT [facility] 60 MINUTES Dmitri Garg MD [address] [place] [address] Referral IDStatusReasonStart DateExpiration DateVisits RequestedVisits [id number] PCP Requested Referral [id number]o(Thoracentesis)ReasonCommentsPatient EducationSpecialtyDiagnoses / ProceduresReferred By ContactReferred To Contact Anesthesiology Diagnoses Pleural effusion associated with hepatic disorder Shortness of breath Lesion of liver greater than 1 cm in diameter Alcoholic cirrhosis of liver with ascites (HCC) Liver transplant candidate Metabolic dysfunction-associated steatotic liver disease (MASLD) Procedures CONSULT TO ANESTHESIOLOGY OFFICE/OUTPATIENT [facility] 60 MINUTES Dmitri Garg MD [address] [place] [address] Referral IDStatusReasonStart DateExpiration DateVisits RequestedVisits [id number] PCP Requested Referral /[id number] / ProceduresReferred By ContactReferred To ContactCardiology Diagnoses Pleural effusion associated with hepatic disorder Shortness of breath Lesion of liver greater than 1 cm in diameter Alcoholic cirrhosis of liver with ascites (HCC) Liver transplant candidate Metabolic dysfunction-associated steatotic liver disease (MASLD) Procedures CONSULT TO CARDIOLOGY OFFICE/OUTPATIENT [facility] 60 MINUTES Dmitri Garg MD [address] [place] [address] Referral IDStatusReasonStart DateExpiration DateVisits RequestedVisits [id number] PCP Requested Referral [id number] PatientTransplant EvaluationLiver transplant candidateSpecialtyDiagnoses / ProceduresReferred By ContactReferred To [facility] HospitalInfectious Diseases Diagnoses Lesion of liver greater than 1 cm in diameter Alcoholic cirrhosis of liver with ascites (HCC) Liver transplant candidate Metabolic dysfunction-associated steatotic liver disease (MASLD) Procedures CONSULT TO INFECTIOUS DISEASES OFFICE/OUTPATIENT [facility] 60 MINUTES Dmitri Garg MD [address] [place] [address] Referral IDStatusReasonStart DateExpiration DateVisits RequestedVisits [id number] PCP Requested Referral [id number], LabReasonCommentsResultsSpecialty Diagnoses / ProceduresReferred By ContactReferred To [facility] HospitalRES[facility] Diagnoses Dyspnea, unspecified type Procedures SPIROMETRY WITH DILATOR IF OBSTRUCTED BRNCDILAT RSPSE SPMTRY PRE&POST-BRNCDILAT ADMSandro Mix MD [address] [place] [address] [facility] [address] [place] [address] Referral IDStatusReasonStart DateExpiration DateVisits RequestedVisits [id number] Auto-Generated Referral [id number] PatientSpecialtyDiagnoses / Procedures Referred By ContactReferred To [facility] HospitalPulmonary and Critical Care Medicine Diagnoses Pleural effusion associated with hepatic disorder Shortness of breath Lesion of liver greater than 1 cm in diameter Alcoholic cirrhosis of liver with ascites (HCC) Liver transplant candidate Metabolic dysfunction-associated steatotic liver disease (MASLD) Procedures CONSULT TO PULM/CRITICAL CARE OFFICE/OUTPATIENT [facility] 60 MINUTES Dmitri Garg MD [address] [place] [address] Referral IDStatusReasonStart DateExpiration DateVisits RequestedVisits [id number] PCP Requested Referral /[id number] Of Patient/familySpecialtyDiagnoses / ProceduresReferred By ContactReferred To [facility] Diagnoses Pleural effusion associated with hepatic disorder Procedures LUNG DIFFUSION CAPACITY (DLCO) LUNG DIFFUSION CAPACITY (DLCO) DIFFUSING CAPACITY Cheri Guido MD [address] [place] [address] Phone: tel: fax: [place] [address] Referral IDStatusReasonDerby Line DateExpiration DateVisits RequestedVisits [id number] Auto-Generated Referral /[id number] / ProceduresReferred By ContactReferred To [facility] Diagnoses Pleural effusion associated with hepatic disorder Procedures SPIROMETRY WITH DILATOR IF OBSTRUCTED SPIROMETRY WITH DILATOR IF OBSTRUCTED BRNCDILAT RSPSE SPMTRY PRE&POST-BRNCDILAT ADMN Cheri Guido MD [address] [place] [address] Phone: tel: fax: [place] [address] Referral IDStatusAmandaasonStart DateExpiration DateVisits RequestedVisits [id number] Auto-Generated Referral [id number]-Hf ExamReasonCommentsCARDIAC SUBCOMMITTEE MTGReasonCommentsRadiology MRISpecialtyDiagnoses / ProceduresReferred By Contact Referred To ContactMR IMAGING Diagnoses Low back pain, unspecified back pain laterality, unspecified chronicity, unspecified whether sciatica present Procedures MRI CERVICAL SPINE WO/W IVCON MRI SPINAL CANAL CERVICAL W/O & W/CONTR ROSAMARIAL Dmitri Garg MD [address] [place] [address] Phone: tel: fax: [facility] [place] [address] Referral IDStatusReasonStart DateExpiration DateVisits RequestedVisits [id number] Auto-Generated Referral /[id number] Labs ResultschemistryReasonCommentsOLT evaluationReasonCommentsOLT selection mtg pt notificationReasonCommentsOutside Lab ResultsReasonCommentsConsultReasonCommentsCare Coordinator - OtherReason CommentsBiopsy RequestReasonCommentsPatient UpdateReasonCommentsInformed Consent 91Patient EducationReasonCommentsTransplant SerologiesReasonCommentsdc ed schedulingReasonCommentsReturn Call RequestReasonCommentsLiver Pathology Review HCC Ferris ScoreReasonCommentsCoPat StartReasonComments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CoPat AgencyReasonCommentsCoPat ManagementLab reviewReasonCommentsCoPat StopReason [...] section and content) DATE CREATED AUTHOR 07/14/2023 [facility] DATE CREATED AUTHOR AUTHOR'S ORGANIZ ATION 08/22/2024 [facility] DATE CREATED AUTHOR AUTHOR'S ORGANIZ ATION 08/23/2024 [facility] DATE CREATED AUTHOR AUTHOR'S ORGANIZ ATION 08/23/2024 [facility] DATE CREATED AUTHOR AUTHOR'S ORGANIZ ATION 11/22/2024 [facility] DATE CREATED AUTHOR AUTHOR'S ORGANIZ ATION 01/26/2025 [facility] DATE CREATED AUTHOR AUTHOR'S ORGANIZ ATION 02/23/[address] [facility] Source Comments (unrecognize d section and content) In the event this informatio n is protected by the Federal Confidentiality of Alcohol and Drug Abuse Patient Records regulations: The Federal rules restrict any use of the information to criminally investigate or prosecute any alcohol or drug abuse patient.[facility] HospitalIn the event this information is protected by the Federal Confidentiality of Alcohol and Drug Abuse Patient Records regulations: The Federal rules restrict any use of the information to criminally investigate or prosecute any alcohol or drug abuse patient.[facility] HospitalIn the event this information is protected by the Federal Confidentiality of Alcohol and Drug Abuse Patient Records regulations: The Federal rules restrict any use of the information to criminally investigate or prosecute any alcohol or drug abuse patient.[facility] HospitalIn the event this information is protected by the Federal Confidentiality of Alcohol and Drug Abuse Patient Records regulations: The Federal rules restrict any use of the information to criminally investigate or prosecute any alcohol or drug abuse patient.[facility] HospitalIn the event this information is protected by the Federal Confidentiality of Alcohol and Drug Abuse Patient Records regulations: The Federal rules restrict any use of the information to criminally investigate or prosecute any alcohol or drug abuse patient.[facility] HospitalIn the event this information is protected by the Federal Confidentiality of Alcohol and Drug Abuse Patient Records regulations: The Federal rules restrict any use of the information to criminally investigate or prosecute any alcohol or drug abuse patient.[facility] HospitalIn the event this information is protected by the Federal Confidentiality of Alcohol and Drug Abuse Patient Records regulations: The Federal rules restrict any use of the information to criminally investigate or prosecute any alcohol or drug abuse patient.[facility] HospitalIn the event this information is protected by the Federal Confidentiality of Alcohol and Drug Abuse Patient Records regulations: The Federal rules restrict any use of the information to criminally investigate or prosecute any alcohol or drug abuse patient.[facility] HospitalIn the event this information is protected by the Federal Confidentiality of Alcohol and Drug Abuse Patient Records regulations: The Federal rules restrict any use of the information to criminally investigate or prosecute any alcohol or drug abuse patient.[facility] HospitalIn the event this information is protected by the Federal Confidentiality of Alcohol and Drug Abuse Patient Records regulations: The Federal rules restrict any use of the information to criminally investigate or prosecute any alcohol or drug abuse patient.[facility] HospitalIn the event this information is protected by the Federal Confidentiality of Alcohol and Drug Abuse Patient Records regulations: The Federal rules restrict any use of the information to criminally investigate or prosecute any alcohol or drug abuse patient.[facility] HospitalIn the event this information is protected by the Federal Confidentiality of Alcohol and Drug Abuse Patient Records regulations: The Federal rules restrict any use of the information to criminally investigate or prosecute any alcohol or drug abuse patient.[facility] HospitalIn the event this information is protected by the Federal Confidentiality of Alcohol and Drug Abuse Patient Records regulations: The Federal rules restrict any use of the information to criminally investigate or prosecute any alcohol or drug abuse patient.[facility] HospitalIn the event this information is protected by the Federal Confidentiality of Alcohol and Drug Abuse Patient Records regulations: The Federal rules restrict any use of the information to criminally investigate or prosecute any alcohol or drug abuse patient.[facility] HospitalIn the event this information is protected by the Federal Confidentiality of Alcohol and Drug Abuse Patient Records regulations: The Federal rules restrict any use of the information to criminally investigate or prosecute any alcohol or drug abuse patient.[facility] HospitalIn the event this information is protected by the Federal Confidentiality of Alcohol and Drug Abuse Patient Records regulations: The Federal rules restrict any use of the information to criminally investigate or prosecute any alcohol or drug abuse patient.[facility] HospitalIn the event this information is protected by the Federal Confidentiality of Alcohol and Drug Abuse Patient Records regulations: The Federal rules restrict any use of the information to criminally investigate or prosecute any alcohol or drug abuse patient.[facility] HospitalIn the event this information is protected by the Federal Confidentiality of Alcohol and Drug Abuse Patient Records regulations: The Federal rules restrict any use of the information to criminally investigate or prosecute any alcohol or drug abuse patient.[facility] HospitalIn the event this information is protected by the Federal Confidentiality of Alcohol and Drug Abuse Patient Records regulations: The Federal rules restrict any use of the information to criminally investigate or prosecute any alcohol or drug abuse patient.[facility] HospitalIn the event this information is protected by the Federal Confidentiality of Alcohol and Drug Abuse Patient Records regulations: The Federal rules restrict any use of the information to criminally investigate or prosecute any alcohol or drug abuse patient.[facility] HospitalIn the event this information is protected by the Federal Confidentiality of Alcohol and Drug Abuse Patient Records regulations: The Federal rules restrict any use of the information to criminally investigate or prosecute any alcohol or drug abuse patient.[facility] HospitalIn the event this information is protected by the Federal Confidentiality of Alcohol and Drug Abuse Patient Records regulations: The Federal rules restrict any use of the information to criminally investigate or prosecute any alcohol or drug abuse patient.[facility] HospitalIn the event this information is protected by the Federal Confidentiality of Alcohol and Drug Abuse Patient Records regulations: The Federal rules restrict any use of the information to criminally investigate or prosecute any alcohol or drug abuse patient.[facility] HospitalIn the event this information is protected by the Federal Confidentiality of Alcohol and Drug Abuse Patient Records regulations: The Federal rules restrict any use of the information to criminally investigate or prosecute any alcohol or drug abuse patient.[facility] HospitalIn the event this information is protected by the Federal Confidentiality of Alcohol and Drug Abuse Patient Records regulations: The Federal rules restrict any use of the information to criminally investigate or prosecute any alcohol or drug abuse patient.[facility] HospitalIn the event this information is protected by the Federal Confidentiality of Alcohol and Drug Abuse Patient Records regulations: The Federal rules restrict any use of the information to criminally investigate or prosecute any alcohol or drug abuse patient.[facility] HospitalIn the event this information is protected by the Federal Confidentiality of Alcohol and Drug Abuse Patient Records regulations: The Federal rules restrict any use of the information to criminally investigate or prosecute any alcohol or drug abuse patient.[facility] HospitalIn the event this information is protected by the Federal Confidentiality of Alcohol and Drug Abuse Patient Records regulations: The Federal rules restrict any use of the information to criminally investigate or prosecute any alcohol or drug abuse patient.[facility] HospitalIn the event this information is protected by the Federal Confidentiality of Alcohol and Drug Abuse Patient Records regulations: The Federal rules restrict any use of the information to criminally investigate or prosecute any alcohol or drug abuse patient.[facility] HospitalIn the event this information is protected by the Federal Confidentiality of Alcohol and Drug Abuse Patient Records regulations: The Federal rules restrict any use of the information to criminally investigate or prosecute any alcohol or drug abuse patient.[facility] HospitalIn the event this information is protected by the Federal Confidentiality of Alcohol and Drug Abuse Patient Records regulations: The Federal rules restrict any use of the information to criminally investigate or prosecute any alcohol or drug abuse patient.[facility] HospitalIn the event this information is protected by the Federal Confidentiality of Alcohol and Drug Abuse Patient Records regulations: The Federal rules restrict any use of the information to criminally investigate or prosecute any alcohol or drug abuse patient.[facility] HospitalIn the event this information is protected by the Federal Confidentiality of Alcohol and Drug Abuse Patient Records regulations: The Federal rules restrict any use of the information to criminally investigate or prosecute any alcohol or drug abuse patient.[facility] HospitalIn the event this information is protected by the Federal Confidentiality of Alcohol and Drug Abuse Patient Records regulations: The Federal rules restrict any use of the information to criminally investigate or prosecute any alcohol or drug abuse patient.[facility] HospitalIn the event this information is protected by the Federal Confidentiality of Alcohol and Drug Abuse Patient Records regulations: The Federal rules restrict any use of the information to criminally investigate or prosecute any alcohol or drug abuse patient.[facility] HospitalIn the event this information is protected by the Federal Confidentiality of Alcohol and Drug Abuse Patient Records regulations: The Federal rules restrict any use of the information to criminally investigate or prosecute any alcohol or drug abuse patient.[facility] HospitalIn the event this information is protected by the Federal Confidentiality of Alcohol and Drug Abuse Patient Records regulations: The Federal rules restrict any use of the information to criminally investigate or prosecute any alcohol or drug abuse patient.[facility] HospitalIn the event this information is protected by the Federal Confidentiality of Alcohol and Drug Abuse Patient Records regulations: The Federal rules restrict any use of the information to criminally investigate or prosecute any alcohol or drug abuse patient.[facility] HospitalIn the event this information is protected by the Federal Confidentiality of Alcohol and Drug Abuse Patient Records regulations: The Federal rules restrict any use of the information to criminally investigate or prosecute any alcohol or drug abuse patient.[facility] HospitalIn the event this information is protected by the Federal Confidentiality of Alcohol and Drug Abuse Patient Records regulations: The Federal rules restrict any use of the information to criminally investigate or prosecute any alcohol or drug abuse patient.[facility] HospitalIn the event this information is protected by the Federal Confidentiality of Alcohol and Drug Abuse Patient Records regulations: The Federal rules restrict any use of the information to criminally investigate or prosecute any alcohol or drug abuse patient.[facility] HospitalIn the event this information is protected by the Federal Confidentiality of Alcohol and Drug Abuse Patient Records regulations: The Federal rules restrict any use of the information to criminally investigate or prosecute any alcohol or drug abuse patient.[facility] HospitalIn the event this information is protected [...] or prosecute any alcohol or drug abuse patient.[facility] HospitalIn the event this information is protected by the Federal Confidentiality of Alcohol and Drug Abuse Patient Records regulations: The Federal rules restrict any use of the information to criminally investigate or prosecute any alcohol or drug abuse patient.[facility] HospitalIn the event this information is protected by the Federal Confidentiality of Alcohol and Drug Abuse Patient Records regulations: The Federal rules restrict any use of the information to criminally investigate or prosecute any alcohol or drug abuse patient.[facility] HospitalIn the event this information is protected by the Federal Confidentiality of Alcohol and Drug Abuse Patient Records regulations: The Federal rules restrict any use of the information to criminally investigate or prosecute any alcohol or drug abuse patient.[facility] HospitalIn the event this information is protected by the Federal Confidentiality of Alcohol and Drug Abuse Patient Records regulations: The Federal rules restrict any use of the information to criminally investigate or prosecute any alcohol or drug abuse patient.[facility] HospitalIn the event this information is protected by the Federal Confidentiality of Alcohol and Drug Abuse Patient Records regulations: The Federal rules restrict any use of the information to criminally investigate or prosecute any alcohol or drug abuse patient.[facility] HospitalIn the event this information is protected by the Federal Confidentiality of Alcohol and Drug Abuse Patient Records regulations: The Federal rules restrict any use of the information to criminally investigate or prosecute any alcohol or drug abuse patient.[facility] HospitalIn the event this information is protected by the Federal Confidentiality of Alcohol and Drug Abuse Patient Records regulations: The Federal rules restrict any use of the information to criminally investigate or prosecute any alcohol or drug abuse patient.[facility] HospitalIn the event this information is protected by the Federal Confidentiality of Alcohol and Drug Abuse Patient Records regulations: The Federal rules restrict any use of the information to criminally investigate or prosecute any alcohol or drug abuse patient.[facility] HospitalIn the event this information is protected by the Federal Confidentiality of Alcohol and Drug Abuse Patient Records regulations: The Federal rules restrict any use of the information to criminally investigate or prosecute any alcohol or drug abuse patient.[facility] HospitalIn the event this information is protected by the Federal Confidentiality of Alcohol and Drug Abuse Patient Records regulations: The Federal rules restrict any use of the information to criminally investigate or prosecute any alcohol or drug abuse patient.[facility] HospitalIn the event this information is protected by the Federal Confidentiality of Alcohol and Drug Abuse Patient Records regulations: The Federal rules restrict any use of the information to criminally investigate or prosecute any alcohol or drug abuse patient.[facility] HospitalIn the event this information is protected by the Federal Confidentiality of Alcohol and Drug Abuse Patient Records regulations: The Federal rules restrict any use of the information to criminally investigate or prosecute any alcohol or drug abuse patient.[facility] HospitalIn the event this information is protected by the Federal Confidentiality of Alcohol and Drug Abuse Patient Records regulations: The Federal rules restrict any use of the information to criminally investigate or prosecute any alcohol or drug abuse patient.[facility] HospitalIn the event this information is protected by the Federal Confidentiality of Alcohol and Drug Abuse Patient Records regulations: The Federal rules restrict any use of the information to criminally investigate or prosecute any alcohol or drug abuse patient.[facility] HospitalIn the event this information is protected by the Federal Confidentiality of Alcohol and Drug Abuse Patient Records regulations: The Federal rules restrict any use of the information to criminally investigate or prosecute any alcohol or drug abuse patient.[facility] HospitalIn the event this information is protected by the Federal Confidentiality of Alcohol and Drug Abuse Patient Records regulations: The Federal rules restrict any use of the information to criminally investigate or prosecute any alcohol or drug abuse patient.[facility] HospitalIn the event this information is protected by the Federal Confidentiality of Alcohol and Drug Abuse Patient Records regulations: The Federal rules restrict any use of the information to criminally investigate or prosecute any alcohol or drug abuse patient.[facility] HospitalIn the event this information is protected by the Federal Confidentiality of Alcohol and Drug Abuse Patient Records regulations: The Federal rules restrict any use of the information to criminally investigate or prosecute any alcohol or drug abuse patient.[facility] HospitalIn the event this information is protected by the Federal Confidentiality of Alcohol and Drug Abuse Patient Records regulations: The Federal rules restrict any use of the information to criminally investigate or prosecute any alcohol or drug abuse patient.[facility] HospitalIn the event this information is protected by the Federal Confidentiality of Alcohol and Drug Abuse Patient Records regulations: The Federal rules restrict any use of the information to criminally investigate or prosecute any alcohol or drug abuse patient.[facility] HospitalIn the event this information is protected by the Federal Confidentiality of Alcohol and Drug Abuse Patient Records regulations: The Federal rules restrict any use of the information to criminally investigate or prosecute any alcohol or drug abuse patient.[facility] HospitalIn the event this information is protected by the Federal Confidentiality of Alcohol and Drug Abuse Patient Records regulations: The Federal rules restrict any use of the information to criminally investigate or prosecute any alcohol or drug abuse patient.[facility] HospitalIn the event this information is protected by the Federal Confidentiality of Alcohol and Drug Abuse Patient Records regulations: The Federal rules restrict any use of the information to criminally investigate or prosecute any alcohol or drug abuse patient.[facility] HospitalIn the event this information is protected by the Federal Confidentiality of Alcohol and Drug Abuse Patient Records regulations: The Federal rules restrict any use of the information to criminally investigate or prosecute any alcohol or drug abuse patient.[facility] HospitalIn the event this information is protected by the Federal Confidentiality of Alcohol and Drug Abuse Patient Records regulations: The Federal rules restrict any use of the information to criminally investigate or prosecute any alcohol or drug abuse patient.[facility] HospitalIn the event this information is protected by the Federal Confidentiality of Alcohol and Drug Abuse Patient Records regulations: The Federal rules restrict any use of the information to criminally investigate or prosecute any alcohol or drug abuse patient.[facility] HospitalIn the event this information is protected by the Federal Confidentiality of Alcohol and Drug Abuse Patient Records regulations: The Federal rules restrict any use of the information to criminally investigate or prosecute any alcohol or drug abuse patient.[facility] HospitalIn the event this information is protected by the Federal Confidentiality of Alcohol and Drug Abuse Patient Records regulations: The Federal rules restrict any use of the information to criminally investigate or prosecute any alcohol or drug abuse patient.[facility] HospitalIn the event this information is protected by the Federal Confidentiality of Alcohol and Drug Abuse Patient Records regulations: The Federal rules restrict any use of the information to criminally investigate or prosecute any alcohol or drug abuse patient.[facility] HospitalIn the event this information is protected by the Federal Confidentiality of Alcohol and Drug Abuse Patient Records regulations: The Federal rules restrict any use of the information to criminally investigate or prosecute any alcohol or drug abuse patient.[facility] HospitalIn the event this information is protected by the Federal Confidentiality of Alcohol and Drug Abuse Patient Records regulations: The Federal rules restrict any use of the information to criminally investigate or prosecute any alcohol or drug abuse patient.[facility] HospitalIn the event this information is protected by the Federal Confidentiality of Alcohol and Drug Abuse Patient Records regulations: The Federal rules restrict any use of the information to criminally investigate or prosecute any alcohol or drug abuse patient.[facility] HospitalIn the event this information is protected by the Federal Confidentiality of Alcohol and Drug Abuse Patient Records regulations: The Federal rules restrict any use of the information to criminally investigate or prosecute any alcohol or drug abuse patient.[facility] HospitalIn the event this information is protected by the Federal Confidentiality of Alcohol and Drug Abuse Patient Records regulations: The Federal rules restrict any use of the information to criminally investigate or prosecute any alcohol or drug abuse patient.[facility] HospitalIn the event this information is protected by the Federal Confidentiality of Alcohol and Drug Abuse Patient Records regulations: The Federal rules restrict any use of the information to criminally investigate or prosecute any alcohol or drug abuse patient.[facility] HospitalIn the event this information is protected by the Federal Confidentiality of Alcohol and Drug Abuse Patient Records regulations: The Federal rules restrict any use of the information to criminally investigate or prosecute any alcohol or drug abuse patient.[facility] HospitalIn the event this information is protected by the Federal Confidentiality of Alcohol and Drug Abuse Patient Records regulations: The Federal rules restrict any use of the information to criminally investigate or prosecute any alcohol or drug abuse patient.[facility] HospitalIn the event this information is protected by the Federal Confidentiality of Alcohol and Drug Abuse Patient Records regulations: The Federal rules restrict any use of the information to criminally investigate or prosecute any alcohol or drug abuse patient.[facility] HospitalIn the event this information is protected by the Federal Confidentiality of Alcohol and Drug Abuse Patient Records regulations: The Federal rules restrict any use of the information to criminally investigate or prosecute any alcohol or drug abuse patient.[facility] HospitalIn the event this information is protected by the Federal Confidentiality of Alcohol and Drug Abuse Patient Records regulations: The Federal rules restrict any use of the information to criminally investigate or prosecute any alcohol or drug abuse patient.[facility] HospitalIn the event this information is protected by the Federal Confidentiality of Alcohol and Drug Abuse Patient Records regulations: The Federal rules restrict any use of the information to criminally investigate or prosecute any alcohol or drug abuse patient.[facility] HospitalIn the event this information is protected by the Federal Confidentiality of Alcohol and Drug Abuse Patient Records regulations: The Federal rules restrict any use of the information to criminally investigate or prosecute any alcohol or drug abuse patient.[facility] HospitalIn the event this information is protected by the Federal Confidentiality of Alcohol and Drug Abuse Patient Records regulations: The Federal rules restrict any use of the information to criminally investigate or prosecute any alcohol or drug abuse patient.[facility] HospitalIn the event this information is protected by the Federal Confidentiality of Alcohol and Drug Abuse Patient Records regulations: The Federal rules restrict any use of the information to criminally investigate or prosecute any alcohol or drug abuse patient.[facility] HospitalIn the event this information is protected by the Federal Confidentiality of Alcohol and Drug Abuse Patient Records regulations: The Federal rules restrict any use of the information to criminally investigate or prosecute any alcohol or drug abuse patient.[facility] HospitalIn the event this information is protected by the Federal Confidentiality of Alcohol and Drug Abuse Patient Records regulations: The Federal rules restrict any use of the information to criminally investigate or prosecute any alcohol or drug abuse patient.[facility] HospitalIn the event this information is protected by the Federal Confidentiality of Alcohol and Drug Abuse Patient Records regulations: The Federal rules restrict any use of the information to criminally investigate or prosecute any alcohol or drug abuse patient.[facility] HospitalIn the event this information is protected by the Federal Confidentiality of Alcohol and Drug Abuse Patient Records regulations: The Federal rules restrict any use of the information to criminally investigate or prosecute any alcohol or drug abuse patient.[facility] HospitalIn the event this information is protected [...] or prosecute any alcohol or drug abuse patient.[facility] HospitalIn the event this information is protected by the Federal Confidentiality of Alcohol and Drug Abuse Patient Records regulations: The Federal rules restrict any use of the information to criminally investigate or prosecute any alcohol or drug abuse patient.[facility] HospitalIn the event this information is protected by the Federal Confidentiality of Alcohol and Drug Abuse Patient Records regulations: The Federal rules restrict any use of the information to criminally investigate or prosecute any alcohol or drug abuse patient.[facility] HospitalIn the event this information is protected by the Federal Confidentiality of Alcohol and Drug Abuse Patient Records regulations: The Federal rules restrict any use of the information to criminally investigate or prosecute any alcohol or drug abuse patient.[facility] HospitalIn the event this information is protected by the Federal Confidentiality of Alcohol and Drug Abuse Patient Records regulations: The Federal rules restrict any use of the information to criminally investigate or prosecute any alcohol or drug abuse patient.[facility] HospitalIn the event this information is protected by the Federal Confidentiality of Alcohol and Drug Abuse Patient Records regulations: The Federal rules restrict any use of the information to criminally investigate or prosecute any alcohol or drug abuse patient.[facility] HospitalIn the event this information is protected by the Federal Confidentiality of Alcohol and Drug Abuse Patient Records regulations: The Federal rules restrict any use of the information to criminally investigate or prosecute any alcohol or drug abuse patient.[facility] HospitalIn the event this information is protected by the Federal Confidentiality of Alcohol and Drug Abuse Patient Records regulations: The Federal rules restrict any use of the information to criminally investigate or prosecute any alcohol or drug abuse patient.[facility] HospitalIn the event this information is protected by the Federal Confidentiality of Alcohol and Drug Abuse Patient Records regulations: The Federal rules restrict any use of the information to criminally investigate or prosecute any alcohol or drug abuse patient.[facility] HospitalIn the event this information is protected by the Federal Confidentiality of Alcohol and Drug Abuse Patient Records regulations: The Federal rules restrict any use of the information to criminally investigate or prosecute any alcohol or drug abuse patient.[facility] HospitalIn the event this information is protected by the Federal Confidentiality of Alcohol and Drug Abuse Patient Records regulations: The Federal rules restrict any use of the information to criminally investigate or prosecute any alcohol or drug abuse patient.[facility] HospitalIn the event this information is protected by the Federal Confidentiality of Alcohol and Drug Abuse Patient Records regulations: The Federal rules restrict any use of the information to criminally investigate or prosecute any alcohol or drug abuse patient.[facility] HospitalIn the event this information is protected by the Federal Confidentiality of Alcohol and Drug Abuse Patient Records regulations: The Federal rules restrict any use of the information to criminally investigate or prosecute any alcohol or drug abuse patient.[facility] HospitalIn the event this information is protected by the Federal Confidentiality of Alcohol and Drug Abuse Patient Records regulations: The Federal rules restrict any use of the information to criminally investigate or prosecute any alcohol or drug abuse patient.[facility] HospitalIn the event this information is protected by the Federal Confidentiality of Alcohol and Drug Abuse Patient Records regulations: The Federal rules restrict any use of the information to criminally investigate or prosecute any alcohol or drug abuse patient.[facility] HospitalIn the event this information is protected by the Federal Confidentiality of Alcohol and Drug Abuse Patient Records regulations: The Federal rules restrict any use of the information to criminally investigate or prosecute any alcohol or drug abuse patient.[facility] HospitalIn the event this information is protected by the Federal Confidentiality of Alcohol and Drug Abuse Patient Records regulations: The Federal rules restrict any use of the information to criminally investigate or prosecute any alcohol or drug abuse patient.[facility] HospitalIn the event this information is protected by the Federal Confidentiality of Alcohol and Drug Abuse Patient Records regulations: The Federal rules restrict any use of the information to criminally investigate or prosecute any alcohol or drug abuse patient.[facility] HospitalIn the event this information is protected by the Federal Confidentiality of Alcohol and Drug Abuse Patient Records regulations: The Federal rules restrict any use of the information to criminally investigate or prosecute any alcohol or drug abuse patient.[facility] HospitalIn the event this information is protected by the Federal Confidentiality of Alcohol and Drug Abuse Patient Records regulations: The Federal rules restrict any use of the information to criminally investigate or prosecute any alcohol or drug abuse patient.[facility] HospitalIn the event this information is protected by the Federal Confidentiality of Alcohol and Drug Abuse Patient Records regulations: The Federal rules restrict any use of the information to criminally investigate or prosecute any alcohol or drug abuse patient.[facility] HospitalIn the event this information is protected by the Federal Confidentiality of Alcohol and Drug Abuse Patient Records regulations: The Federal rules restrict any use of the information to criminally investigate or prosecute any alcohol or drug abuse patient.[facility] HospitalIn the event this information is protected by the Federal Confidentiality of Alcohol and Drug Abuse Patient Records regulations: The Federal rules restrict any use of the information to criminally investigate or prosecute any alcohol or drug abuse patient.[facility] HospitalIn the event this information is protected by the Federal Confidentiality of Alcohol and Drug Abuse Patient Records regulations: The Federal rules restrict any use of the information to criminally investigate or prosecute any alcohol or drug abuse patient.[facility] HospitalIn the event this information is protected by the Federal Confidentiality of Alcohol and Drug Abuse Patient Records regulations: The Federal rules restrict any use of the information to criminally investigate or prosecute any alcohol or drug abuse patient.[facility] HospitalIn the event this information is protected by the Federal Confidentiality of Alcohol and Drug Abuse Patient Records regulations: The Federal rules restrict any use of the information to criminally investigate or prosecute any alcohol or drug abuse patient.[facility] HospitalIn the event this information is protected by the Federal Confidentiality of Alcohol and Drug Abuse Patient Records regulations: The Federal rules restrict any use of the information to criminally investigate or prosecute any alcohol or drug abuse patient.[facility] HospitalIn the event this information is protected by the Federal Confidentiality of Alcohol and Drug Abuse Patient Records regulations: The Federal rules restrict any use of the information to criminally investigate or prosecute any alcohol or drug abuse patient.[facility] HospitalIn the event this information is protected by the Federal Confidentiality of Alcohol and Drug Abuse Patient Records regulations: The Federal rules restrict any use of the information to criminally investigate or prosecute any alcohol or drug abuse patient.[facility] HospitalIn the event this information is protected by the Federal Confidentiality of Alcohol and Drug Abuse Patient Records regulations: The Federal rules restrict any use of the information to criminally investigate or prosecute any alcohol or drug abuse patient.[facility] HospitalIn the event this information is protected by the Federal Confidentiality of Alcohol and Drug Abuse Patient Records regulations: The Federal rules restrict any use of the information to criminally investigate or prosecute any alcohol or drug abuse patient.[facility] HospitalIn the event this information is protected by the Federal Confidentiality of Alcohol and Drug Abuse Patient Records regulations: The Federal rules restrict any use of the information to criminally investigate or prosecute any alcohol or drug abuse patient.[facility] HospitalIn the event this information is protected by the Federal Confidentiality of Alcohol and Drug Abuse Patient Records regulations: The Federal rules restrict any use of the information to criminally investigate or prosecute any alcohol or drug abuse patient.[facility] FOR RECORDS PERTAINING TO PATIENTS WHO [...] BE BASED ON THE PRIMARY CLINICAL RECORDS. [facility] [employer] [facility]. provides no warranty or guarantee of the accuracy or completeness of information in this document.
[2025-03-24 07:14] VITALS: BP 113/82; PULSE 88; TEMP 36.8; O2SAT 95
[2025-03-24 08:06] VITALS: BP 145/77; PULSE 70; O2SAT 92
[2025-03-24 08:07] VITALS: BP 142/80; PULSE 73; O2SAT 93
[2025-03-24] MEDS: 0.9 % SODIUM CHLORIDE 10 ML SYRINGE - SALINE FLUSH INJ (08:09)
[2025-03-24] MEDS: LIDOCAINE HCL 2% 400 MG/20 ML MDV 3 ML INJ (08:09)
[2025-03-24] MEDS: IOHEXOL 240 MG/ML - 10 ML VIAL INJ (08:09)
[2025-03-24] MEDS: BUPIVACAINE HCL 0.25% PF 25 MG/10 ML VIAL INJ (08:10)
[2025-03-24] MEDS: DEXAMETHASONE SOD PHOS 10 MG/ML VIAL INJ (08:10)
--- NOTE | 2025-03-24 08:12 | W.PM.PROCNOT ---
Date of procedure: 03/24/25 Pre-op diagnosis: M54.14 Post-op diagnosis: same as pre-op Procedure: Procedure: Bilateral T7-8 transforaminal epidural steroid injection Medications: Bupivacaine 0.25% 2cc, lidocaine 2% 1cc, dexamethasone 10mg The patient was seen and examined in the preoperative holding area.? Informed consent was obtained and placed on the chart.? Patient was brought to the medical procedure unit and placed in the prone position where a timeout was completed verifying the correct patient, procedure site, position, and planned special equipment using sterile aseptic technique.? Under direct fluoroscopic visualization a 25-gauge Quincke tipped spinal needle was advanced at level left T7-8 to the designated neural foramen where contrast dye was injected to show adequate spread.? There was no evidence of vascular or adverse uptake.? Epidural spread was appreciated.? The above-mentioned injectate was then placed in a 1.5 mL aliquot preceded by negative aspiration.? The needle was removed. The same procedure, at the same level, was completed on the opposite side. ? Patient was taken to the postprocedural recovery area and monitored for an appropriate length of time before found suitable for discharge in the accompaniment of a responsible adult. Anesthesia: Local Surgeon: Andrea Sosa Pathology: none sent Condition: stable Disposition: no change
== END 2025-03-24 08:19 | disposition home or self-care (01) ==
PROVIDERS: PCP Internal Medicine; Visit Provider Anesthesiology
DX: M54.14 Radiculopathy, thoracic region (principal)
CPT/HCPCS: 64479; J0665; J1100; Q9966

== ENCOUNTER 2025-03-31 13:36 | Outpatient (OUT) | payer MEDICARE, SELFPAY ==
--- NOTE | 2025-03-31 14:20 | PM.CN ---
Consult Note: HPI Data of Consult Patient: known to practice within the last 3 years Consult date: 03/31/25 Requesting Physician: Andrea Sosa MD Primary Care Provider: SANJAY ROBLEDO Consult Narrative Reason for consult: midback pain Narrative: 69yom who presents for assessment. notes persistence of axial midback pain. imaging significant for multilevel spondylosis, fusion from t8-l3. has completed 6 weeks of home therapy last month. continues to use oxycodone. stopped gabapentin and robaxin due to lack of efficacy. cc:: CC: Andrea Sosa MD Review of Systems ROS Status of ROS 10 or more systems reviewed and unremarkable except as noted in history and below 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) ?K75.81 - Nonalcoholic steatohepatitis (JARAMILLO) (ICD-10) ?K74.60 - Unspecified cirrhosis of liver (ICD-10) Esophageal varices ?I85.00 - Esophageal varices without bleeding (ICD-10) Hyponatremia ?E87.1 - Hypo-osmolality and hyponatremia (ICD-10) Metabolic syndrome X ?E88.810 - Metabolic syndrome (ICD-10) Incisional hernia ?K43.2 - Incisional hernia without obstruction or gangrene (ICD-10) GERD (gastroesophageal reflux disease) ?K21.9 - Gastro-esophageal reflux disease without esophagitis (ICD-10) Weight loss ?R63.4 - Abnormal weight loss (ICD-10) Barretts esophagus ?K22.70 - Tipton's esophagus without dysplasia (ICD-10) Pleural effusion, bilateral ?J90 - Pleural effusion, not elsewhere classified (ICD-10) Surgical History H/O cataract removal with insertion of prosthetic lens ?Z98.49 - Cataract extraction status, unspecified eye (ICD-10) ?Z96.1 - Presence of intraocular lens (ICD-10) Status post thoracentesis ?Z98.890 - Other specified postprocedural states (ICD-10) S/P abdominal paracentesis ?Z98.890 - Other specified postprocedural states (ICD-10) Hx of cholecystectomy ?Z90.49 - Acquired absence of other specified parts of digestive tract (ICD-10) H/O colonoscopy ?Z98.890 - Other specified postprocedural states (ICD-10) H/O esophagogastroduodenoscopy ?Z98.890 - Other specified postprocedural states (ICD-10) Family History Mother Family history of COPD (chronic obstructive pulmonary disease) Family history of hypertension Father Family history of hypertension Social History Within the past year, how often did you have a drink containing alcohol: never Within the past year, how often did you have six or more drinks on one occasion: never Score interpretation: A score less than 4 is consistent with normal alcohol consumption. 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 Highest level of school completed/degree received: high school graduate Are you now , , , , never or living with a partner: In a typical week, how many times do you talk on the telephone with family, friends, or neighbors: once per week How often do you get together with friends or relatives: once per week How often do you attend faith or rastafarian services: never Do you belong to any clubs or organizations such as faith groups unions, fraternal or athletic groups, or school groups: no Total score: 1 Score interpretation: A score of less than or equal to 1 indicates the most socially isolated. Little interest or pleasure in doing things: not at all Feeling down, depressed, or hopeless: not at all Feel stressed/tense/nervous/anxious/difficulty sleeping: not at all Meds Home Medications and Allergies Home Medications ?Medication ?Instructions ?Recorded ?Confirmed ?Type multivitamin 1 tab PO DAILY 10/03/23 03/24/25 History magnesium oxide 400 mg PO TID 11/19/24 03/24/25 History mirtazapine 7.5 mg tablet 7.5 mg PO BEDTIME 11/19/24 03/24/25 History sulfamethoxazole 800 1 tab PO .COMPLEX 11/19/24 03/24/25 History mg-trimethoprim 160 mg tablet tacrolimus 5 mg capsule, 5 mg PO Q12H 11/19/24 03/24/25 History immediate-release ursodiol 300 mg capsule 300 mg PO Q8H 11/19/24 03/24/25 History acetaminophen 500 mg tablet 500 mg PO TID PRN pain 03/06/25 03/24/25 History (Tylenol Extra Strength) furosemide 20 mg tablet (Lasix) 20 mg PO DAILY 03/06/25 03/24/25 History gabapentin 300 mg capsule 300 mg PO QID #120 caps 03/06/25 03/24/25 Rx melatonin 5 mg capsule mg 03/06/25 History methocarbamol 500 mg tablet 500 mg PO TID 03/06/25 03/24/25 History oxycodone 5 mg tablet 5 mg PO QID PRN pain #120 tabs 03/17/25 03/24/25 Rx Allergies Allergy/AdvReac Type Severity Reaction Status Date / Time buprenorphine AdvReac Severe Agitated Verified 03/24/25 07:18 Exam Narrative Exam Narrative: Psych-alert and oriented x 3. Attentive and appropriate, constitutionally normal, displays normal mood and affect per situation.? There are no obvious deficits in memory, reasoning, or intellect.? Skin-no obvious rashes, bruising, erythema noted to the patient's area of pain. Extremities- extremities are warm with minimal edema and palpable pulses. Thoracic - tenderness to palpation noted in the thoracic spine and paraspinal musculature.? Pain is elicited with extension, and lateral rotation. Range of motion is slightly diminished with these motions due to pain. Facet loading maneuvers are positive bilaterally and do appear to be concordant with the patient's normal complaints of pain.? Coordination remains intact.? Gait remains non-antalgic. Assessment and Plan Assessment and Plan (1) Thoracic spondylosis: (2) Thoracic stenosis: Plan 69yom who presents for assessment. failed conservative measures, as noted. imaging reviewed, as noted. given symptoms and imaging, prudent to attempt diagnostic bilateral t6-7, 7-8 medial branch blocks under fluoroscopic guidance with intention of proceeding to radiofrequency ablation. he is in agreement. meds reviewed. will increase oxycodone 5mg to 6x/day. follow up after procedure.
== END 2025-03-31 13:37 | disposition home or self-care (01) ==
LOC: PM 13:36
PROVIDERS: PCP Internal Medicine; Visit Provider Anesthesiology
DX: M47.814 Spondylosis without myelopathy or radiculopathy, thoracic region (principal); M48.04 Spinal stenosis, thoracic region
CPT/HCPCS: G0463

== ENCOUNTER 2025-04-07 09:16 | Day surgery (SDC) | payer MEDICARE, SELFPAY ==
--- OUTSIDE RECORDS SUMMARY | 2024-01-02 02:30 | XMS_ITS ---
Author Organization The [facility] in [place] Address [address] [place] [address] Care Team Providers Care Clerk Typist Name Role Phone Danny OLIVAS, Rusty Primary Care Provider Unavailab johnny Winter Devyn Unavailable [phone] REASON FOR VISIT [facility] F/U [facility]. Encounters Encounter Location Date Provider Diagnosis Pulmonary Medicine [place] [address] [place] [address] 01/02/2024 Devyn Winter Plan Of Treatment No Information Progress Notes * Charles BLANDON JrDOB:[birth year] (69 yo M)Acc No.[id number]:01/02/2024 UNLOCKED PROGRESS NOTE Progress Note Patient: Serena WILL Charles Traore Jr :?BAO ZuritaOB:1955???Age:68 Y ???Sex:MaleDate:01/02/2024hone:[phone]:[address] [id number]:Rusty Delgado MD Subjective: * Chief Complaints: * 1 . [facility] * Medical History: Objective: * Vitals: Assessment: Plan: * Treatment: * * Electronic signature of Devyn Winter DO on 04/07/2025 at 09:21 AM ESTSign off status: PendingVisit Status:?R/S By O/P (Rescheduled by Office/Provider) * Provider: Brenda Winter, DO Date: 0 01/02/2024 Generated for Printing/Faxing/eTransmitting on:?04/07/2025 09:21 AM EST
--- OUTSIDE RECORDS SUMMARY | 2024-07-09 05:30 | XMS_ITS ---
Author Organization The [facility] in [place] Address [address] [place] [address] Care Team Providers Care Magazine Filler Name Role Phone Danny OLIVAS, Rusty Primary Care Provider Unavailab johnny Winter Devyn Unavailable [phone] REASON FOR VISIT [facility]. Encounters Encounter Location Date Provider Diagnosis Pulmonary Medicine [place] [address] [place] [address] 07/09/2024 Devyn Winter Plan Of Treatment No Information Progress Notes * Charles BLANDON JrDOB:[birth year] (69 yo M)Acc No.[id number]:07/09/2024 UNLOCKED PROGRESS NOTE Follow Up Patient: Serena WILLCharles Jr :?BAO ZuritaOB:1955???Age:68 Y ???Sex:MaleDate:07/09/2024Phone:[phone]:[address] [id number]:Rusty Delgado MD Subjective: * Chief Complaints: * 1 . [facility].. * Medical History: Objective: * Vitals: Assessment: Plan: * Treatment: * * Electronic signature of Devyn Winter DO on 04/07/2025 at 09:20 AM ESTSign off status: PendingVisit Status:?CANC (Cancelled) * Provider: Brenda Winter DO Date: 0 07/09/2024 Generated for Printing/Faxing/eTransmitting on:?04/07/2025 09:20 AM EST
--- OUTSIDE RECORDS SUMMARY | 2025-03-28 13:30 | XMS_ITS | Encounter Summary ---
Author Organization [facility] Address [address] [place] [address] Care Team Providers Care Dealership General Manager Name Role Phone Irena Johnson MD Unavailable Vanessa Arora MD Unavailable [phone] Danny WONG MD, Rusty Gomez Primary Care Provider [phone] Carina Ziegler RN Unavailable Unavailable Chelsea Trinidad MD Unavailable [phone] Source Comments In the event this information is protected by the Federal Confidentiality of Alcohol and Drug AbusePatient Records regulations: The Federal rules restrict any use of the information to criminally investigate or prosecute any alcohol or drug abuse patient.[facility] Reason for Visit * ReasonCommentsInfection Follow Up Encounter Details DateTypeDepartmentCare Team (Latest Contact Info)Nekjfzshiiv51/12/2025 1:30 PM [facility] Infectious Disease [address] [place], [place] [id number] Rohan Franz MD [address] [place] [address] Cytomegalovirus infection, unspecified cytomegaloviral infection type (HCC) (Primary Dx); Status post liver transplantation (HCC) Social History Tobacco UseTypesPacks/DayYears UsedDateSmoking Tobacco: [id number] 02/18/1971 - 02/18/1991Smokeless Tobacco: NeverAlcohol UseStandard Drinks/Week CommentsNot Currently0 (1 standard drink = 0.6 oz pure alcohol)Recovering alcoholicHousing Stability Vital SignAnswerDate RecordedIn the last 12 months, was there a time when you were not able to pay the mortgage or rent on time?No 10/08/2024In the past 12 months, how many times have you moved where you were living?Homeless in the Last YearNot on file10/08/2024Hunger Vital SignAnswerDate RecordedWithin the past 12 months, you worried that your food would run out before you got the money to buymore.Never true11/25/2024Within the past 12 months, the food you bought just didn't last and you didn't have money to get more.Never true11/25/2024PRAPARE - TransportationAnswerDate RecordedIn the past 12 months, has lack of transportation kept you from medical appointments or from getting medications?No11/25/2024In the past 12 months, has lack of transportation kept you from meetings, work, or from getting things needed for daily living?No11/25/2024Housing Stability Vital SignAnswerDate RecordedIn the last 12 months, was there a time when you were not able to pay the mortgage or rent on time?No11/25/2024In the past 12 months, how many times have you moved where you were living?t any time in the past 12 months, were you homeless or living in a retirement (including now)?No11/25/2024HC UtilitiesAnswerDate RecordedIn the past 12 months has the [employer], gas, oil, or water [employer] threatened to shut off services in your home?No11/25/2024rea Deprivation IndexAnswerDate RecordedNational Score (1-100), lower number is lower valq150904/25/2024State Score (1-10), lower number is lower wfwt17404/25/2024 Data from: https://www.neighborhoodatlas.[place].[facility]/. 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 on fileNot on fileNot on filedocumented as of this encounter Functional Status * Are you deaf or do you have serious difficulty hearing?AnswerDate of XmjhrawxusGooqlgKv28/14/2025 4:27 PM Cecil Jaramillo RN * Are you blind or do you have serious difficulty seeing, even when wearing glasses?AnswerDate of CerinstiylMcxsfqTp79/14/2025 4:27 PM Cecil Jaramillo RN * Do you have serious difficulty walking or climbing stairs?AnswerDate of HukqaixlmiWihwdiSp10/14/2025 4:27 PM Cecil Jaramillo RN * Do you have difficulty dressing or bathing?AnswerDate of AssessmentAuthorNo 05/31/2024 4:27 PM Cecil Jaramillo RN * Because of a physical, mental, or emotional condition, do you have difficulty doing errands alone such as visiting a doctor's office or shopping?AnswerDate of GnkxifysngDyglynQu41/14/2025 4:27 PM Cecil Jaramillo RN documented as of this encounter Mental Status * Because of a physical, mental, or emotional condition, do you have serious difficulty concentrating, remembering, or making decisions?AnswerEntry Date MyqggnUn96/14/2025 4:27 PM Cecil Jaramillo RN documented in this encounter Progress Notes * Rohan Franz MD - 03/28/2025 2:35 PM EST I have communicated my name and active licensure. The patient's identity and physical location wereverified at the time of this visit. Either the patient or their legal international account representative has been informed of the risks and benefits of -- and alternatives to -- treatment through a remote evaluation andconsents to proceed with the evaluation remotely. Subjective Feels better than the last time I saw him. He still feels weak and this is not better. He is unableto walk up the stairs and has lots of back pain. Now seeing pain management. No fevers. Diarrhea only when he take Lokelma. Otherwise stable Objective There were no vitals taken for this visit. 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 Sacral fractures. No cord signal E faecalis bacteremia -has spine hardware as mentioned below. Concerning sources the abdomen. Has abiliary stent. Remains bacteremic despite antimicrobial therapy. TTE neg 12/18. ERCP 12/19 with 1 biliary stricture and a stent was placed. Cultures cleared after ERCP . Blood cultures cleared 12/20 - course completed 01/02 Biliary stricture s/p stent exchange 02/10 Multiloculated pleural effusions s/p left chest tube, cx neg. 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 Maribavir for a week cleared viremia.Was on letermovir ppx while in rehab and that helped Status post T8-L3 PSIF for fractures I am following patient for CMV. He had negative CMV IgG last admission despite 2 episodes of CMV viremia. ALC count is now normal. He was on letermovir secondary prophylaxis as he had severe pancytopenia with Valcyte. When he was transferred to SNF letermovir was stopped. Viral load slowly went up off rx to 1000. Now needs treatment. I will resume valcyte, with his renal function the dose should be 450 mg daily. Will need close monitoring for cytopenia. Will stop valcyte even if mild cytopenia as previously he needed multiple neupogen shots Valcyte 450 BID started - increased based on crcl Weekly CMP, dose Valcyte according to renal function Weekly CBC for cytopenia Check CMV igg Weekly Cmv PCR Liver team trying to get letermovir for secondary ppx when done with this episode Reduce tacro goal if able Visit was conducted via iCrossingt Zoom Patient Location: Patient Home or Place of Residence Time spent 15 minutes documented in this encounter Miscellaneous Notes * Addendum Note - Rohan Franz MD - 03/28/2025 2:53 PM EST Addended by: ROHAN FRNAZ on: 03/28/2025 02:53 PM Modules accepted: Orders documented in this encounter Plan of Treatment DateTypeDepartmentCare Team (Latest Contact Info)Wszhmjilbqs97/30/2025 11:15 AM ESTAppointment Radiology [address] [address] post liver tx follow up04/15/2025 12:30 PM ESTOffice Visit Transplant Center [address] [address] Kathy Ryan, DIESEL TRACTOR OPERATOR.PATENTED HOGSHEAD ASSEMBLER [address] [address] post liver tx follow up04/16/2025 1:30 PM ESTSelect [facility] [address] [place] [address] Rohan Franz MD [address] [place] [address] CMV Virtual Appt06/11/2025 1:00 PM ESTAppointment Gastroenterology [address] [address] Jane Correia MD [address] [place] [address] 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]NameTypePriorityAssociated DiagnosesOrder ScheduleCMV IGG ANTIBODY BLLabRoutine Cytomegalovirus infection, unspecified cytomegaloviral infection type (HCC) Status post liver transplantation (HCC) Expected: 03/28/2025, Expires: 06/27/2025documented as of this encounter Goals GoalPatient Goal TypeAssociated ProblemsRecent ProgressPatient-Stated?Author Blood Pressure < 130/80 Blood Cqfrdjkd127/71(02/10/2025 12:30 PM EDT)Vanessa Kulkarni, MDdocumented as of this encounter Visit Diagnoses Diagnosis Cytomegalovirus infection, unspecified cytomegaloviral infection type (HCC)- Primary Status post liver transplantation (HCC) Liver replaced by transplant documented in this encounter Care Teams Team MemberRelationshipSpecialtyStart DateEnd Date Rusty Delgado II, MD [address] [facility] [address] [place] [address] PCP - GeneralInternal Medicine05/28/24 Irena Johnson MD [address] [facility] [address] [place] [address] EahckqiltLqbiprvkgrvjymll62/26/24 Vanessa Arora MD [address] [place] [address] Primary Staff PhysicianCardiology05/02/24 Carina Ziegler, RN [facility] [address] [place] [address] Registered NurseTransplant Center09/17/24 [place] [address] [facility] [address] [place], [place] [id number] PhysicianNephrology11/19/24documented as of this encounter
--- OUTSIDE RECORDS SUMMARY | 2025-04-07 09:20 | XMS_ITS | Encounter Summary ---
Author Organization [facility] Address [address] [place] [address] Care Team Providers Care Machine Maintenance Repairer Name Role Phone Irena Johnson MD Unavailable Vanessa Arora MD Unavailable [phone] Danny WONG MD, Daniel B Primary Care Provider [phone] Carina Ziegler RN Unavailable Unavailable Chelsea Trinidad MD Unavailable [phone] Source Comments In the event this information is protected by the Federal Confidentiality of Alcohol and Drug AbusePatient Records regulations: The Federal rules restrict any use of the information to criminally investigate or prosecute any alcohol or drug abuse patient.[facility] Encounter Details DateTypeDepartmentCare Team (Latest Contact Info)Feagawrvqss65/13/2025Results Follow-Up Transplant Center [address] [phone] Carina Ziegler, RN [facility] [address] [place] [address] Social History Tobacco UseTypesPacks/DayYears UsedDateSmoking Tobacco: PelxyjFfpqacalvh746 02/18/1971 - 02/18/1991Smokeless Tobacco: NeverAlcohol UseStandard Drinks/Week [...] or living in a care home (including now)?No11/25/2024HC UtilitiesAnswerDate RecordedIn the past 12 months has the [employer], gas, oil, or water [employer] threatened to shut off services in your home?No11/25/2024rea Deprivation IndexAnswerDate RecordedNational Score (1-100), lower number is lower ndbk112004/25/2024State Score (1-10), lower number is lower ozah60604/25/2024 Data from: https://www.neighborhoodatlas.medicine.[facility].edu/. 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 on fileNot on filedocumented as of this encounter Functional Status * Are you deaf or do you have serious difficulty hearing?AnswerDate of HezaqnxkabIrxzrkFe41/14/2025 4:27 PM Cecil Jaramillo RN * Are you blind or do you have serious difficulty seeing, even when wearing glasses?AnswerDate of IwhmzrogjwNeyusuTp13/14/2025 4:27 PM Cecil Jaramillo RN * Do you have serious difficulty walking or climbing stairs?AnswerDate of ZidwyqybyxCixgxcJs88/14/2025 4:27 PM Cecil Jaramillo RN * Do you have difficulty dressing or bathing?AnswerDate of AssessmentAuthorNo 05/31/2024 4:27 PM Cecil Jaramillo RN * Because of a physical, mental, or emotional condition, do you have difficulty doing errands alone such as visiting a doctor's office or shopping?AnswerDate of JerpamejizMgqhboMr22/14/2025 4:27 PM Cecil Jaramillo RN documented as of this encounter Mental Status * Because of a physical, mental, or emotional condition, do you have serious difficulty concentrating, remembering, or making decisions?AnswerEntry Date WkdgiwQi34/14/2025 4:27 PM Cecil Jaramillo RN documented in this encounter Plan of Treatment DateTypeDepartmentCare Team (Latest Contact Info)Ltfwtaswfuk73/30/2025 11:15 AM ESTAppointment Radiology [address] [address] post liver tx follow up04/15/2025 12:30 PM ESTOffice Visit Transplant Center [address] [address] Kathy Ryan, CALL CIRCUIT WORKER.CONSUMER INSIGHTS SPECIALIST [address] [place] [address] [phone] post liver tx follow up04/16/2025 1:30 PM [facility] Infectious Disease [address] [place] [address] Amanda Franz MD [address] [place], [place] [phone] CMV Virtual Appt06/11/2025 1:00 PM ESTAppointment Gastroenterology [address] [address] Jane Correia MD [address] [place] [address] 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]documented as of this encounter Goals GoalPatient Goal TypeAssociated ProblemsRecent ProgressPatient-Stated?Author Blood Pressure < 130/80 Blood Afkouhsv879/71(02/10/2025 12:30 PM EDT)Vanessa Kulkarni, MDdocumented as of this encounter Visit Diagnoses Not on filedocumented in this encounter Care Teams Team MemberRelationshipSpecialtyStart DateEnd Date Rusty Delgado II, MD 112 [facility] [address] [place] [address] PCP - GeneralInternal Medicine05/28/24 Irena Johnson MD 3000 [facility] 1620 [facility] [place] [phone] SazacwlciSbutowsckyqmxevk39/26/24 Vanessa Arora MD [address] [place], [place] [phone] Primary Staff PhysicianCardiology05/02/24 Carina Ziegler RN [facility] [address] [facility] [place] [address] Registered NurseTransplant Center09/17/24 [place] [address] [address] [place] [address] PhysicianNephrology11/19/24documented as of this encounter
--- OUTSIDE RECORDS SUMMARY | 2025-04-07 09:20 | XMS_ITS | Encounter Summary ---
Author Organization [facility] Address [address] [place] [address] Care Team Providers Care Supervisor Printing Shop Name Role Phone Irena Johnson MD Unavailable Vanessa Arora MD Unavailable [phone] Danny WONG MD, Rusty Gomez Primary Care Provider [phone] Carina Ziegler RN Unavailable Unavailable Chelsea Trinidad MD Unavailable [phone] Source Comments In the event this information is protected by the Federal Confidentiality of Alcohol and Drug AbusePatient Records regulations: The Federal rules restrict any use of the information to criminally investigate or prosecute any alcohol or drug abuse patient.[facility] Reason for Visit * ReasonCommentsReferral - Liver TxpReturn Call Request Encounter Details DateTypeDepartmentCare Team (Latest Contact Info)Daosucmwwql56/10/2024Telephone Transplant Center [address] [phone] Coordinator, Liver Txp [address] [place] [address] Referral - Liver Txp; Return Call Request Social History Tobacco UseTypesPacks/DayYears UsedDateSmoking Tobacco: YshhfxYqytevmddq835 02/18/1971 - 02/18/1991Alcohol UseStandard Drinks/ExriRmsiezrdUhm68 (1 standard drink = 0.6 oz pure alcohol)1-2 drinks nightlyHousing Stability Vital SignAnswer Date RecordedIn the last 12 months, was there a time when you were not able to pay the mortgage or rent on time?No10/08/2024In the past 12 months, how many times have you moved where you were living?Homeless in the Last Year Not on file10/08/2024Hunger Vital SignAnswerDate RecordedWithin the past 12 months, you worried that your food would run out before you got the money to buy more.Never true11/25/2024Within the past 12 months, the food you bought just didn't last and you didn't have money to get more.Never true11/25/2024PRAPARE - TransportationAnswerDate RecordedIn the past 12 months, has lack of transportation kept you from medical appointments or from getting medications?No 11/25/2024In the past 12 months, has lack of transportation kept you from meetings, work, or from getting things needed for daily living?No11/25/2024 Housing Stability Vital SignAnswerDate RecordedIn the last 12 months, was there a time when you were not able to pay the mortgage or rent on time?No11/25/2024In the past 12 months, how many times have you moved where you were living?0 11/25/2024t any time in the past 12 months, were you homeless or living in a care home (including now)?No11/25/2024HC UtilitiesAnswerDate RecordedIn the past 12 months has the electric, gas, oil, or water company threatened to shut off services in your home?No11/25/2024rea Deprivation IndexAnswerDate Recorded National Score (1-100), lower number is lower zfvy942304/25/2024State Score (1- 10), lower number is lower ppdy56904/25/2024Data from: https://www.neighborhoodatlas.medicine.[facility].edu/. Last address used for oxxnpfigr[address]04/25/2024Sex and Gender InformationValueDate Recorded Sex Assigned at QzdpjQstf92/07/2025 12:19 PM ESTLegal NijRqcw69/02/2012 10:09 AM ESTGender JhupxwnvHzug32/07/2025 12:19 PM ESTSexual OrientationStraight 04/23/2024 12:19 PM ESTdocumented as of this encounter Functional Status * Are you deaf or do you have serious difficulty hearing?AnswerDate of EmxuzjlqsrZerznsUl25/14/2015 2:34 PM Bebe Arellano MA * Are you blind or do you have serious difficulty seeing, even when wearing glasses?AnswerDate of MaoggflqatPqksmtCd21/14/2015 2:34 PM Bebe Arellano MA * Do you have serious difficulty walking or climbing stairs?AnswerDate of XdwtfdwufxRiiydvFh33/14/2015 2:34 PM Bebe Arellano MA * Do you have difficulty dressing or bathing?AnswerDate of AssessmentAuthorNo 08/28/2014 2:34 PM Bebe Arellano MA * Because of a physical, mental, or emotional condition, do you have difficulty doing errands alone such as visiting a doctor's office or shopping?AnswerDate of CkdtujvgcmUjwlxzJx92/14/2015 2:34 PM Bebe Arellano MA documented as of this encounter Mental Status * Because of a physical, mental, or emotional condition, do you have serious difficulty concentrating, remembering, or making decisions?AnswerEntry Date CclotiPq74/14/2015 2:34 PM Bebe Arellano MA documented in this encounter Miscellaneous Notes * Telephone Encounter - Alida Brennan - 03/27/2024 2:30 PM EST Patient spouse Fabiana called back in asking can someone give call for Liver intake # [phone] * Telephone Encounter - Gisell Newsome - 03/26/2024 1:40 PM EST Fabiana, patient's is returning call for Liver Transplant Intake, she is requesting a call back, and phone number to call is her mobile # [phone]. Gisell Newsome documented in this encounter Plan of Treatment DateTypeDepartmentCare Team (Latest Contact Info)Abbqwjohojh05/30/2025 11:15 AM ESTAppointment Radiology [address] [address] post liver tx follow up04/15/2025 12:30 PM ESTOffice Visit Transplant Center [address] [address] Kathy Ryan, DATABASE PROGRAMMER.[facility] [address] [phone] post liver tx follow up04/16/2025 1:30 PM ESTDistanColumbia University [facility] Infectious Disease [address] [phone] Amanda Franz MD [address] [phone] CMV Virtual Appt06/11/2025 1:00 PM ESTAppointment Gastroenterology [address] [address] Jane Correia MD [address] [place] [address] 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]documented as of this encounter Goals GoalPatient Goal TypeAssociated ProblemsRecent ProgressPatient-Stated?Author Blood Pressure < 130/80 Blood Bhxpcmoa598/71(02/10/2025 12:30 PM EDT)Vanessa Kulkarni, MDdocumented as of this encounter Visit Diagnoses Not on filedocumented in this encounter Additional Health Concerns InfectionOnset DateLast IndicatedResolved TimeCOVID-19 Rule-Out09/08/2024 6:09 PM EDTCOVID-19 Rule-Out 1:41 AM EDTRespiratory Rule-Out 1:41 AM EDT Parainfluenza Virus Comment:Asymptomatic per RN / 8:47 AM EDTCOVID-19 Rule-Out12/14/2024 7:58 PM EDTRespiratory Rule-Out12/14/ 7:58 PM EDTdocumented as of this encounter Care Teams Team MemberRelationshipSpecialtyStart DateEnd Date Rusty Delgado II, MD [address] [facility] 110 [place] [address] PCP - GeneralInternal Medicine05/28/24 Irena Johnson MD 3000 [facility] 1620 [facility] [place] [address] XqxsnytpbAafhetprmcqwgbgd59/26/24 Vanessa Arora MD 9500 [place], [place] [phone] Primary Staff PhysicianCardiology05/02/24 Carina Ziegler, [facility] [address] [place] [address] Registered NurseTransplant Center09/17/24 [place] [address] [facility] [address] [place], [place] [phone] PhysicianNephrology11/19/24documented as of this encounter
--- OUTSIDE RECORDS SUMMARY | 2025-04-07 09:20 | XMS_ITS | Encounter Summary ---
Author Organization [facility] Address [address] [phone] Care Team Providers Care Mexican Food Maker Name Role Phone Irena Johnson MD Unavailable Vanessa Arora MD Unavailable [phone] Danny WONG MD, Daniel B Primary Care Provider [phone] Carina Ziegler RN Unavailable Unavailable Chelsea Trinidad MD Unavailable [phone] Source Comments In the event this information is protected by the Federal Confidentiality of Alcohol and Drug AbusePatient Records regulations: The Federal rules restrict any use of the information to criminally investigate or prosecute any alcohol or drug abuse patient.[facility] Encounter Details DateTypeDepartmentCare Team (Latest Contact Info)Nuvvvgfvrhx57/14/2025Results Follow-Up Transplant Center [address] [phone] Carina Ziegler, RN [facility] [address] [place] [address] Social History Tobacco UseTypesPacks/DayYears UsedDateSmoking Tobacco: WswdvyPjjiwjoakp883 02/18/1971 - 02/18/1991Smokeless Tobacco: NeverAlcohol UseStandard Drinks/Week [...] were you homeless or living in a residential (including now)?No11/25/2024HC UtilitiesAnswerDate RecordedIn the past 12 months has the [employer], gas, oil, or water [employer] threatened to shut off services in your home?No11/25/2024rea Deprivation IndexAnswerDate RecordedNational Score (1-100), lower number is lower ogrk577104/25/2024State Score (1-10), lower number is lower gveg04904/25/2024 Data from: https://www.neighborhoodatlas.medicine.[facility].edu/. 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 on fileNot on fileNot on filedocumented as of this encounter Functional Status * Are you deaf or do you have serious difficulty hearing?AnswerDate of QlrlsmmadeSzowxqYf28/14/2025 4:27 PM Cecil Jaramillo RN * Are you blind or do you have serious difficulty seeing, even when wearing glasses?AnswerDate of ZbfhagstvyShmzecXr44/14/2025 4:27 PM Cecil Jaramillo RN * Do you have serious difficulty walking or climbing stairs?AnswerDate of ZekgdcrwkiAucdldWy78/14/2025 4:27 PM Cecil Jaramillo RN * Do you have difficulty dressing or bathing?AnswerDate of AssessmentAuthorNo 05/31/2024 4:27 PM Cecil Jaramillo RN * Because of a physical, mental, or emotional condition, do you have difficulty doing errands alone such as visiting a doctor's office or shopping?AnswerDate of YafymjeqhxOzvinsGc53/14/2025 4:27 PM Cecil Jaramillo RN documented as of this encounter Mental Status * Because of a physical, mental, or emotional condition, do you have serious difficulty concentrating, remembering, or making decisions?AnswerEntry Date XpoyqiRk11/14/2025 4:27 PM Cecil Jaramillo RN documented in this encounter Miscellaneous Notes * Result Encounter Note - Carina Ziegler RN - 01/28/2025 12:[address] imaging results routed to neurosurgeon that did previous surgery for his review Carina Ziegler RN (Molly), BSN, [facility] Liver Solar Sales Representative And Assessor documented in this encounter Plan of Treatment DateTypeDepartmentCare Team (Latest Contact Info)Xfqvesronlk28/30/2025 11:15 AM ESTAppointment Radiology [address] [address] post liver tx follow up04/15/2025 12:30 PM ESTOffice Visit Transplant Center [address] [address] Kathy Ryan, RIGGER HELPER.MANUFACTURING DESIGN ENGINEER 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]documented as of this encounter Goals GoalPatient Goal TypeAssociated ProblemsRecent ProgressPatient-Stated?Author Blood Pressure < 130/80 Blood Eeforbeb277/71(02/10/2025 12:30 PM EDT)Vanessa Kulkarni, MDdocumented as of this encounter Visit Diagnoses Not on filedocumented in this encounter Care Teams Team MemberRelationshipSpecialtyStart DateEnd Date Rusty Delgado II, MD 112 [facility] 110 [place] [address] PCP - GeneralInternal Medicine05/28/24 Irena Johnson MD 3000 [facility] 1620 [facility] [place] [address] DcgnazlxwHyknznzznjnqudan26/26/24 Vanessa Arora MD 9075 [place], [place] [phone] Primary Staff PhysicianCardiology05/02/24 Carina Ziegler RN [facility] 0920 [place] [address] Registered NurseTransplant Center09/17/24 [place] [address] [address] [place], [place] [phone] PhysicianNephrology11/19/24documented as of this encounter
--- OUTSIDE RECORDS SUMMARY | 2025-04-07 09:20 | XMS_ITS | Patient Health Record ---
Author Organization [facility] Rogelio mcginnis Billing Info Address [address] [facility] [place] [address] Phone [phone] Care Team Providers Care Salvager Name Role Phone BRITTANY FUNES PA-C Primary Care Provider [phone] Reason For Referral No Information Medications Medication SIG (Take, Route, Frequency, Duration) Notes Start Date End Date Diagnosis (ICD Code) Status Aspirin 81 MG Tablet Chewable 1 tablet Orally On ce a day; Duration: 30 day(s) ActiveCalciumActiveMultivitamin - Tablet1 tablet Orally Once a day; Duration: 30 day(s)ActiveLisinopril 20 MG TabletTAKE 1 TABLET BY MOUTH EVERY DAY; Duration: 90ActiveOmeprazole 40 MG Capsule Delayed Release1 capsule Orally Once a day; Duration: 30 day(s)ActiveMetoprolol Tartrate 25 MG Tablet1 tablet with food Orally Twice a day; Duration: 90Active Social History Tobacco Use: Social History Observation Description Date Details (start date - stop date) Former Smoker NA - NA Sex Observation Social History Observation Description Sex Observation Male Social History Social HistorySocial InfoQuestionAnswerNotesTobacco Status:Patient carrie former smoker? Quit in:1989? number of years18? packs per cne5Prgeegu Use:Patientuses alcohol? Drinks per occasion:2? 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 Problems Problem Type SNOMED Code ICD Code Dates Problem Status W/U Sta tus Risk Notes Problem Essential hypertension (45798894) Essential hypertension (I10) Added On:01/08/2019 Active confirmed ProblemVertigo (640303199)Vertigo (R42) Added On:01/08/2019 ActiveconfirmedProblemHearing loss (25187131)Decreased hearing of left ear (H91.92) Added On:10/17/2019 ActiveconfirmedProblemSupraventricular premature beats (74714422)PAC (premature atrial contraction) (I49.1) Added On:01/12/2019 ActiveconfirmedProblemThrombocytopenic disorder (448352579)Decreased platelet count (D69.6) Added On:04/02/2020 ActiveconfirmedProblemInsomnia (882147610)Insomnia, unspecified type (G47.00) Added On:10/16/2019 Activeconfirmed Plan Of Treatment Future Test Test Name Order Date CBC With Differential/Platelet ([id number]) 04/02/2020 Hepatic Function Panel (7) ([id number]) 1 06/03/2019 Insurance Providers Payer Name Payer Address Payer Phone Subscriber Number Group Number Insured Name Patient Relationship to Insured Coverage Start Date Coverage End Date [employer] PPO MEDICARE/[id number] [address] [place], [place] [id number] Charles Stewart Self - patient is the [...] 97 TRI 90CMP 08/01/18 CR 0.90Irregular heart tbkvioK84.9Essential cfrevjxgdbbaP92Jwfysthnn atrial gueaulfyjgaH96.1 HnsuohlR28GBW (premature atrial contraction)I49.1Surgical History Surgery Date(Month/Year) Cholecystectomy Tonsillectomyhernia repairBASAL CARCINOMA REMOVED LEFT SIDE OF FWPB9427 Hospitalization History Reason Date(Month/Year) HERNIA SURGERY
--- OUTSIDE RECORDS SUMMARY | 2025-04-07 09:20 | XMS_ITS | Encounter Summary ---
Author Organization [facility] Address [address] [place] [address] Care Team Providers Care Oxyhydrogen Welder Name Role Phone Irena Johnson MD Unavailable Vanessa Arora MD Unavailable [phone] Danny WONG MD, Daniel B Primary Care Provider [phone] Carina Ziegler RN Unavailable Unavailable Chelsea Trinidad MD Unavailable [phone] Source Comments In the event this information is protected by the Federal Confidentiality of Alcohol and Drug AbusePatient Records regulations: The Federal rules restrict any use of the information to criminally investigate or prosecute any alcohol or drug abuse patient.[facility] Encounter Details DateTypeDepartmentCare Team (Latest Contact Info)Zzgqlvbvbjy23/13/2025Results Follow-Up Transplant Center [address] [id number] Carina Ziegler, RN [facility] [address] [place] [address] Social History Tobacco UseTypesPacks/DayYears UsedDateSmoking Tobacco: SjcozhUobceukxcw764 02/18/1971 - 02/18/1991Smokeless Tobacco: NeverAlcohol UseStandard Drinks/Week [...] were you homeless or living in a alf (including now)?No11/25/2024HC UtilitiesAnswerDate RecordedIn the past 12 months has the [employer], gas, oil, or water [employer] threatened to shut off services in your home?No11/25/2024rea Deprivation IndexAnswerDate RecordedNational Score (1-100), lower number is lower btjq641604/25/2024State Score (1-10), lower number is lower mqlv64404/25/2024 Data from: https://www.neighborhoodatlas.medicine.[facility].edu/. 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 on fileNot on filedocumented as of this encounter Functional Status * Are you deaf or do you have serious difficulty hearing?AnswerDate of CavitksqlrMerqhoGw07/14/2025 4:27 PM Cecil Jaramillo RN * Are you blind or do you have serious difficulty seeing, even when wearing glasses?AnswerDate of OtybzkchrzNajqotBl44/14/2025 4:27 PM Cecil Jaramillo RN * Do you have serious difficulty walking or climbing stairs?AnswerDate of HemxembjwpPuzgxbJo84/14/2025 4:27 PM Cecil Jaramillo RN * Do you have difficulty dressing or bathing?AnswerDate of AssessmentAuthorNo 05/31/2024 4:27 PM Cecil Jaramillo RN * Because of a physical, mental, or emotional condition, do you have difficulty doing errands alone such as visiting a doctor's office or shopping?AnswerDate of VpygixbwkeZevisuYk38/14/2025 4:27 PM Cecil Jaramillo RN documented as of this encounter Mental Status * Because of a physical, mental, or emotional condition, do you have serious difficulty concentrating, remembering, or making decisions?AnswerEntry Date SvnzlzHc32/14/2025 4:27 PM Cecil Jaramillo RN documented in this encounter Plan of Treatment DateTypeDepartmentCare Team (Latest Contact Info)Yywbmcyhqvg96/30/2025 11:15 AM ESTAppointment Radiology [address] [address] post liver tx follow up04/15/2025 12:30 PM ESTOffice Visit Transplant Center [address] [address] Kathy Ryan, HIGH SCHOOL INDUSTRIAL ARTS TEACHER.ORDER PROCESSING CLERK [address] [place] [address] [phone] post liver tx follow up04/16/2025 1:[address] 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]documented as of this encounter Goals GoalPatient Goal TypeAssociated ProblemsRecent ProgressPatient-Stated?Author Blood Pressure < 130/80 Blood Foyfxtqw055/71(02/10/2025 12:30 PM EDT)Vanessa Kulkarni, MDdocumented as of this encounter Visit Diagnoses Not on filedocumented in this encounter Care Teams Team MemberRelationshipSpecialtyStart DateEnd Date Rusty Delgado II, MD 112 [facility] 110 [place] [address] PCP - GeneralInternal Medicine05/28/24 Irena Johnson MD 3000 [facility] 1620 [facility] [place] [phone] ScdcddhuvUkiglwvfikuwmzpi30/26/24 Vanessa Arora MD 9500 [place], [place] [phone] Primary Staff PhysicianCardiology05/02/24 Carina Ziegler RN [facility] 9500 [facility] [place] [address] Registered NurseTransplant Center09/17/24 [place] [address] [address] [place] [address] PhysicianNephrology11/19/24documented as of this encounter
--- OUTSIDE RECORDS SUMMARY | 2025-04-07 09:20 | XMS_ITS | Encounter Summary ---
Author Organization [facility] Address [address] [place] [address] Care Team Providers Care Chief Nursing Officer Name Role Phone Irena Johnson MD Unavailable Vanessa Arora MD Unavailable [phone] Danny WONG MD, Daniel B Primary Care Provider [phone] Carina Ziegler RN Unavailable Unavailable Chelsea Trinidad MD Unavailable [phone] Source Comments In the event this information is protected by the Federal Confidentiality of Alcohol and Drug AbusePatient Records regulations: The Federal rules restrict any use of the information to criminally investigate or prosecute any alcohol or drug abuse patient.[facility] Encounter Details DateTypeDepartmentCare Team (Latest Contact Info)Nqwgluffdmf81/17/2025Results Follow-Up Transplant Center [address] [phone] Carina Ziegler, RN [facility] [address] [place] [address] Social History Tobacco UseTypesPacks/DayYears UsedDateSmoking Tobacco: MxetofHeboybdzzu811 02/18/1971 - 02/18/1991Smokeless Tobacco: NeverAlcohol UseStandard Drinks/Week [...] homeless or living in a fci (including now)?No11/25/2024HC UtilitiesAnswerDate RecordedIn the past 12 months has the [employer], gas, oil, or water [employer] threatened to shut off services in your home?No11/25/2024rea Deprivation IndexAnswerDate RecordedNational Score (1-100), lower number is lower heui669304/25/2024State Score (1-10), lower number is lower impd98504/25/2024 Data from: https://www.neighborhoodatlas.medicine.[facility].edu/. 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 on fileNot on fileNot on filedocumented as of this encounter Functional Status * Are you deaf or do you have serious difficulty hearing?AnswerDate of UzfzqwuplzAyoqjqAz05/14/2025 4:27 PM Cecil Jaramillo RN * Are you blind or do you have serious difficulty seeing, even when wearing glasses?AnswerDate of CdusglplvxXtjwbmBp82/14/2025 4:27 PM Cecil Jaramillo RN * Do you have serious difficulty walking or climbing stairs?AnswerDate of AqtbnlavvzHswrffGi60/14/2025 4:27 PM Cecil Jaramillo RN * Do you have difficulty dressing or bathing?AnswerDate of AssessmentAuthorNo 05/31/2024 4:27 PM Ceicl Jaramillo RN * Because of a physical, mental, or emotional condition, do you have difficulty doing errands alone such as visiting a doctor's office or shopping?AnswerDate of KevtgwutqnXqpddrBl60/14/2025 4:27 PM Cecil Jaramillo RN documented as of this encounter Mental Status * Because of a physical, mental, or emotional condition, do you have serious difficulty concentrating, remembering, or making decisions?AnswerEntry Date EvogkaXf33/14/2025 4:27 PM Cecil Jaramillo RN documented in this encounter Plan of Treatment DateTypeDepartmentCare Team (Latest Contact Info)Wfejbgeezpu11/30/2025 11:15 AM ESTAppointment Radiology [address] [address] post liver tx follow up04/15/2025 12:30 PM ESTOffice Visit Transplant Center [address] [address] Kathy Ryan, AIRPORT OPERATIONS SPECIALIST.DAY CARE AIDE [address] [place] [address] [phone] post liver tx follow up04/16/2025 1:30 PM 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]documented as of this encounter Goals GoalPatient Goal TypeAssociated ProblemsRecent ProgressPatient-Stated?Author Blood Pressure < 130/80 Blood Uqhgazmg762/71(02/10/2025 12:30 PM EDT)Vanessa Kulkarni, MDdocumented as of this encounter Visit Diagnoses Not on filedocumented in this encounter Care Teams Team MemberRelationshipSpecialtyStart DateEnd Date Rusty Delgado II, MD 112 [facility] 110 [place] [address] PCP - GeneralInternal Medicine05/28/24 Irena Johnson MD 3000 [facility] 1620 [facility] [place] [phone] EzywoojweHsvtmflgovdzhdvh03/26/24 Vanessa Aroar MD 9500 [place], [place] [phone] Primary Staff PhysicianCardiology05/02/24 Carina Ziegler RN [facility] 9500 [facility] [place] [address] Registered NurseTransplant Center09/17/24 [place] [address] [address] [place] [address] PhysicianNephrology11/19/24documented as of this encounter
--- OUTSIDE RECORDS SUMMARY | 2025-04-07 09:20 | XMS_ITS | Encounter Summary ---
Author Organization [facility] Address [address] [place] [address] Care Team Providers Care Medical Scribe Name Role Phone Irena Johnson MD Unavailable Vanessa Arora MD Unavailable [phone] Danny WONG MD, Daniel B Primary Care Provider [phone] Carina Ziegler RN Unavailable Unavailable Chelsea Trinidad MD Unavailable [phone] Source Comments In the event this information is protected by the Federal Confidentiality of Alcohol and Drug AbusePatient Records regulations: The Federal rules restrict any use of the information to criminally investigate or prosecute any alcohol or drug abuse patient.[facility] Encounter Details DateTypeDepartmentCare Team (Latest Contact Info)Iadaqfvpbya78/09/2025Results Follow-Up Transplant Center [address] [phone] Carina Ziegler, RN [facility] [address] [place] [address] Social History Tobacco UseTypesPacks/DayYears UsedDateSmoking Tobacco: YjpfrfXjixoulcen021 02/18/1971 - 02/18/1991Smokeless Tobacco: NeverAlcohol UseStandard Drinks/Week [...] homeless or living in a intermediate (including now)?No11/25/2024HC UtilitiesAnswerDate RecordedIn the past 12 months has the [employer], gas, oil, or water [employer] threatened to shut off services in your home?No11/25/2024rea Deprivation IndexAnswerDate RecordedNational Score (1-100), lower number is lower peag630604/25/2024State Score (1-10), lower number is lower pruo85904/25/2024 Data from: https://www.neighborhoodatlas.medicine.[facility].edu/. 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 on fileNot on fileNot on filedocumented as of this encounter Functional Status * Are you deaf or do you have serious difficulty hearing?AnswerDate of DagbovhvhfMxyhxeNo20/14/2025 4:27 PM Cecil Jaramillo RN * Are you blind or do you have serious difficulty seeing, even when wearing glasses?AnswerDate of EylgteasfnZadzdbGy60/14/2025 4:27 PM Cecil Jaramillo RN * Do you have serious difficulty walking or climbing stairs?AnswerDate of IletxjfoaeUbjjocZf99/14/2025 4:27 PM Cecil Jaramillo RN * Do you have difficulty dressing or bathing?AnswerDate of AssessmentAuthorNo 05/31/2024 4:27 PM Cecil Jaramillo RN * Because of a physical, mental, or emotional condition, do you have difficulty doing errands alone such as visiting a doctor's office or shopping?AnswerDate of LgrseczfhcYtjsgvSt49/14/2025 4:27 PM Cecil Jaramillo RN documented as of this encounter Mental Status * Because of a physical, mental, or emotional condition, do you have serious difficulty concentrating, remembering, or making decisions?AnswerEntry Date EjqxidUl31/14/2025 4:27 PM Cecil Jaramillo RN documented in this encounter Miscellaneous Notes * Result Encounter Note - Carina Ziegler RN - 01/23/2025 2:26 PM EDT Liver transplant labs reviewed and H&H low, followed by staff at [facility] Carina Ziegler RN (Molly), BSN, [facility] Liver [place] documented in this encounter Plan of Treatment DateTypeDepartmentCare Team (Latest Contact Info)Citewgushzt81/30/2025 11:15 AM ESTAppointment Radiology [address] [address] post liver tx follow up04/15/2025 12:30 PM ESTOffice Visit Transplant Center [address] [address] Kathy Ryan, DIGITAL MARKETING ASSISTANT.CRUSHER MACHINE OPERATOR [address] [phone] post liver tx follow up04/16/2025 1:30 PM [facility] Infectious Disease 9300 [place] [address] Amanda Franz MD 7080 [place] [address] CMV Virtual Appt06/11/2025 1:00 PM ESTAppointment Gastroenterology [address] [address] Jane Correia MD 9500 [place], [place] [phone] 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]documented as of this encounter Goals GoalPatient Goal TypeAssociated ProblemsRecent ProgressPatient-Stated?Author Blood Pressure < 130/80 Blood Uovikzjg041/71(02/10/2025 12:30 PM EDT)Vanessa Kulkarni, MDdocumented as of this encounter Visit Diagnoses Not on filedocumented in this encounter Care Teams Team MemberRelationshipSpecialtyStart DateEnd Date Rusty Delgado II, MD 112 [facility] 110 [place] [address] PCP - GeneralInternal Medicine05/28/24 Irena Johnson MD 3000 [facility] 1620 [facility] [place] [address] PwvyhiwcpFcwgqvrtqlikwxgp13/26/24 Vanessa Arora MD 9792 [place] [address] Primary Staff PhysicianCardiology05/02/[address] [facility] 7950 [place] [address] Registered NurseTransplant Center09/17/24 [place] [address] [address] [place] [address] PhysicianNephrology11/19/24documented as of this encounter
--- OUTSIDE RECORDS SUMMARY | 2025-04-07 09:20 | XMS_ITS | Encounter Summary ---
Author Organization [facility] Address [address] [place] [address] Care Team Providers Care Air Quality Chemist Name Role Phone Irena Johnson MD Unavailable Vanessa Arora MD Unavailable [phone] Danny WONG MD, Daniel B Primary Care Provider [phone] Carina Ziegler RN Unavailable Unavailable Chelsea Trinidad MD Unavailable [phone] Source Comments In the event this information is protected by the Federal Confidentiality of Alcohol and Drug AbusePatient Records regulations: The Federal rules restrict any use of the information to criminally investigate or prosecute any alcohol or drug abuse patient.[facility] Encounter Details DateTypeDepartmentCare Team (Latest Contact Info)Fxiubblsjkz73/13/2025Results Follow-Up Transplant Center [address] [phone] Carina Ziegler, RN [facility] [address] [place] [address] Social History Tobacco UseTypesPacks/DayYears UsedDateSmoking Tobacco: ZptctsVcqqvwshwq833 02/18/1971 - 02/18/1991Smokeless Tobacco: NeverAlcohol UseStandard Drinks/Week [...] homeless or living in a mcc (including now)?No11/25/2024HC UtilitiesAnswerDate RecordedIn the past 12 months has the [employer], gas, oil, or water [employer] threatened to shut off services in your home?No11/25/2024rea Deprivation IndexAnswerDate RecordedNational Score (1-100), lower number is lower lsjr125804/25/2024State Score (1-10), lower number is lower sogp59004/25/2024 Data from: https://www.neighborhoodatlas.medicine.[facility].edu/. 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 on fileNot on fileNot on filedocumented as of this encounter Functional Status * Are you deaf or do you have serious difficulty hearing?AnswerDate of EsjgijxrrvSkbizlIz96/14/2025 4:27 PM Cecil Jaramillo RN * Are you blind or do you have serious difficulty seeing, even when wearing glasses?AnswerDate of VenlovwsgrNzuffqQx42/14/2025 4:27 PM Cecil Jaramillo RN * Do you have serious difficulty walking or climbing stairs?AnswerDate of PlgryftgqgNcccwaEd18/14/2025 4:27 PM Cecil Jaramillo RN * Do you have difficulty dressing or bathing?AnswerDate of AssessmentAuthorNo 05/31/2024 4:27 PM Cecil Jaramillo RN * Because of a physical, mental, or emotional condition, do you have difficulty doing errands alone such as visiting a doctor's office or shopping?AnswerDate of CxdpgasfitOsqwncWf68/14/2025 4:27 PM Cecil Jaramillo RN documented as of this encounter Mental Status * Because of a physical, mental, or emotional condition, do you have serious difficulty concentrating, remembering, or making decisions?AnswerEntry Date QfbhheHn19/14/2025 4:27 PM Cecil Jaramillo RN documented in this encounter Plan of Treatment DateTypeDepartmentCare Team (Latest Contact Info)Fdkzhiiwnxx20/30/2025 11:15 AM ESTAppointment Radiology [address] [address] post liver tx follow up04/15/2025 12:30 PM ESTOffice Visit Transplant Center [address] [address] Kathy Ryan, VISUAL EDUCATION TEACHER.BALE STACKER [address] [place] [address] [phone] post liver tx follow up04/16/2025 1:30 PM [facility] Infectious Disease 9300 [place] [address] Amanda Franz MD 9500 [place], [place] [phone] CMV Virtual Appt06/11/2025 1:00 PM ESTAppointment Gastroenterology [address] [address] Jane Correia MD 9500 [place] [address] 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]documented as of this encounter Goals GoalPatient Goal TypeAssociated ProblemsRecent ProgressPatient-Stated?Author Blood Pressure < 130/80 Blood Ucwpibui094/71(02/10/2025 12:30 PM EDT)Vanessa Kulkarni, MDdocumented as of this encounter Visit Diagnoses Not on filedocumented in this encounter Care Teams Team MemberRelationshipSpecialtyStart DateEnd Date Rusty Delgado II, MD 112 [facility] 110 [place] [address] PCP - GeneralInternal Medicine05/28/24 Irena Johnson MD 3000 [facility] 1620 [facility] [place] [phone] VwoyoycupZxljghsghjljueiw04/26/24 Vanessa Arora MD 9500 [place], [place] [phone] Primary Staff PhysicianCardiology05/02/24 Carina Ziegler RN [facility] 9500 [place] [address] Registered NurseTransplant Center09/17/24 [place] [address] [address] [place] [address] PhysicianNephrology11/19/24documented as of this encounter
--- OUTSIDE RECORDS SUMMARY | 2025-04-07 09:21 | XMS_ITS | Clinical Summary ---
Author Organization [facility] Address [address] [place] [id number] Care Team Providers [facility] Supervisor Name Role Phone Irena Johnson MD Unavailable Vanessa Arora MD Unavailable [phone] Danny WONG MD, Rusty Gomez Primary Care Provider [phone] Carina Ziegler RN Unavailable Unavailable Chelsea Trinidad MD Unavailable [phone] Allergies Active AllergyReactionsCriticalityNoted DateCommentsDexmedetomidineIntolerance High12/17/2024 Bradycardia to 15 Medications MedicationSigDispense QuantityRefillsLast FilledStart DateEnd DateStatus acetaminophen (TYLENOL) 500 mg tablet Take 1 tablet by mouth every 6 hours as needed for pain. [address] (PROTONIX) 40 mg tablet Take 1 tablet by mouth daily at 6 am.5Active magnesium oxide (MAG-OX) 400 mg (241.3 mg magnesium) tablet Take 1 tablet by mouth two times a day.5Active letermovir (PREVYMIS) 480 mg tablet Take 1 tablet by mouth once daily. 30 tablet 5Active furosemide (LASIX) 20 mg tablet Take 1 tablet by mouth two times a day. 120 tablet 5Active mirtazapine (REMERON) 7.5 mg tablet Take 1 tablet by mouth daily at bedtime. 30 tablet 3105Active sulfamethoxazole-trimethoprim (BACTRIM DS) 800-160 mg per tablet Take 1 tablet by mouth every Monday, Monday, and Monday. 15 tablet 1015Active ursodiol (ACTIGALL) 300 mg capsule Take 1 capsule by mouth three times a day. 90 capsule 5Active gabapentin (NEURONTIN) 300 mg capsule Take 1 capsule by mouth two times a day for 60 days. 60 capsule 515Active methocarbamol (ROBAXIN) 500 mg tablet Take 1 tablet by mouth four times a day as needed. 120 tablet 5Active sodium zirconium cyclosilicate (LOKELMA) 10 gram oral packet Take 1 packet by mouth once daily. Mix powder in 45 mL of water, stir and drink immediately. 30 packet 5Active sodium polystyrene sulfonate, with sorbitol, (SPS) 15-20 gram/60 mL susp suspension Take 120 mL by mouth every Monday, Monday, and Monday. 1440 mL 5Active sodium polystyrene sulfonate (KAYEXALATE) powder Take 30 g by mouth every Monday, Monday, and Monday. 360 g 5Active tacrolimus IR (PROGRAF) 1 mg capsule Take 5 capsules by mouth two times a day. Dose increase 03/06/25) 300 capsule 5Active valGANciclovir (VALCYTE) 450 mg tablet Take 1 tablet by mouth two times a day with meals. 60 tablet 6Active HYDROmorphone (DILAUDID) 1 mg/mL liqd Indications:Compression fracture of spine, non-traumatic, sequela,History of pelvic fractureTake 0.5 mL by mouth every 8 hours as needed for up to 30 days. 45 mL Expired valGANciclovir (VALCYTE) 450 mg tablet Take 1 tablet by mouth once daily. 30 tablet Discontinued Active Problems Patient Care Coordination No te Formatting of this note migh t be different from the original. Indication for Surgery: Decompensated alcohol-induced cirrhosis Important/Relevant PMH/PSH: Charles Blandon is a 69 year old male with PMHx EtOH cirrhosis c/b HCC s/p DCD- OLT and drainage ofR hydrothorax 09/09/24 with recent admission for shortness of breath and weakness found to have biloma s/p image guided drain 10/17, cultures +VRE; b/l pleural effusion s/p left thora 10/14. Patient presented to ED at OSH 11/19 after fall with concern for AMS and hallucinations. At OSH, he was found to have old rib fractures and left pubic rami fracture. He was transferred to [facility] 11/22/24. Preoperative Hospital Course: (narrative or log of major events) He presented to the emergency department on 08/23 due to a sudden increase in confusion and worseningabdominal bloating. Initially admitted to the RNF for suspected hepatic encephalopathy, his condition deteriorated, leading to transfer to the MICU on 08/27. Patient underwent OLT on 09/09/24. Airway Difficulty: Grade I - Spann, 8.0 ETT Difficult Central Access: No Recent ECHO: Date: 10/17/24 LVEF: 55% RVF: Normal Code Status: Full Chronological List of Surgeries and Major Events (Diagnosis): (Surgeries in bold characters) 09/09/2024: DCD OLT 10/07/24-10/30/24: hospitalized for shortness of breath and diarrhea 10/14/24: CT showed loculated R hydropneumothoarx and left pleural effusion. Underwent left thoracentesis with negative fluid cultures. 10/15/24:underwent ERCP which showed biliary stricture in common hepatic duct and bile leak from donor cystic duct 10/17/24:Imaging guided drain placement into GB fossa for contained bile leak. Culture (+) VRE treated w daptomycin 10/24/24: dizziness and vertigo. MRI negative for acute abnormality 10/30/24: dc to [facility] 11/22/24: transferred to [facility] from OSH for after fall and AMS. At OSH, found to have L 5th-7th rib fractures and left pubic rami fracture. 11/22/24: CT abd/pelvis w IV contrast interval decrease in GB fossa fluid collection, edema, ascitesand decreased loculated component of peritoneal rim along lateral right mid abdomen. CT brain negative. 11/25/24: S/p US-guided aspiration of right abdominal fluid collection Zosyn empiric 11/24-11/27. 11/28/24:MRI C/T/L spine: New severe compression fracture of T11 vertebral body, with 80% height loss and mild retropulsion 12/03/24: T8-L3 PSIF, T12 partial corpectomy 12/17/24 - Patient had acute on chronic respiratory decompensation. Re-intubated, CVL and A-line placed, NG tube placed. 12/18: L pigtail placed by IR 12/19: ERCP with no leak 12/22: image guided paracentesis today 12/24 extubated 12/26 remains extubated without significant secretions, on NC O2 12/27 Stable Major Events within past 24 hours ; - Weaned off levo, hemodynamically stable A/P of Major Active Problems (excluding routine care and common problems): Neuro: Conscious and responsive, oriented x person and place Admitted with AMS following fall at home - Serial CT head negative; cEEG with encephalopathy and no seizures - Infectious workup negative to date - Psych consulted, started on Abilify, hold narcotics, delirium protocol, currently being held as patient is sedated - Sedation: Propofol infusion wean to lowest setting in the setting of hypotension, patient tolerating it well. Monitor TG - Start Seroquel 50mg, Melatonin HS - Modified pain regimen - stable with no pain and adequate mental status after extubation CV: History of hypertension, arrhythmia Hypotension - On low dose levo infusion 12/24 now at 2.5 - consider midodrine if unable to wean effectively. - 12/26: weaned off levo. Hemodynamically stable Plan: - Maintain MAP >65 - Monitor lactate level and UOP. Fluid resuscitation as needed. - Optimize electrolytes Resp: #Hypoxic respiratory failure Repeat CT Chest showing bilateral multiloculated pleural effusion collections, patient re-intubatedand IRT placed left sdied chest tube on 12/18. TpA administered by thoracic x3 doses from 12/20-12/22. -Per thoracic: No need for additional Tpa as CT Chest reviewed with min Pleural effusion - Lasix 40 mg today, monitor urine output - will try to wean sedation and assess respiratory status on own during spontaneous breathing trial, will see if adequate - thoracic ok to pull pigtain, primary prefers to keep it at this time. D/c'ed pigtail 12/25. - CXR 12/25: good lung volumes, no e/o pneumothorax - Extubated, improving respiratory fxn. - D/c CT, maintain bronchopulmonary hygiene aggressively for secretions - doing well - 12/27 Doing well, no sig secretions on NC 1 liter GI: Liver Transplant recipient OLT 09/09/2025, HCC, grade II EV, portal HTN, bile leak in GB fossa s/p guided drain placement (now removed), s/p US guided aspiration of right abdominal fluid collection ERCP 12/19: - A single moderate biliary stricture was found in the upper third of the main bile duct above the metal stent. The stricture was post-surgical. - Common bile duct strictute was successfully dilated. Swept CBD and cleared debris/sludge. - One temporary stent was placed into the common bile duct traversing the stricture into RHD. - Daily LFTs - PPI ppx - Immunosuppression per transplant: - Image guided paracentesis 12/23 of fluid collection with 320cc removed, follow up paracentesis labsand cultures insignificant. SAAG - 1.2. - continue post pyloric feeds at goal - NGT removed, post-pyloric feeding tube maintained - Swallow study passed, now on CLD - Consider trial of slow progression of PO diet - Bowel regimen held as bowel movement present. - starting po with continued TF. Cleared by [facility] RO[facility]. Renal/FEN: Nonoliguric KATIE on CKD stage 3 2/2 ATI vs HRS, resolved - Baseline Cr 0.94, at baseline - replete electrolytes as needed - Daily CMP - Keep external cath to monitor urine output Heme: Acute blood loss anemia - daily labs - Transfuse <7 Infectious Disease: CMV Bacteremia Leukopenia, downtrending along with downtrended PLTS and RBCS, concern for bone marrow suppression,? Drug induced vs other. Per ID: - D/c ganciclovir, start maribavir, ID following - Add antivirals as per Transplant, ID recommendations - Continue nupagen - Derm consulted i/v/o rash - Leading Differential: Acute inflammatory edema. Advised Triamcinolone0.1% ointment. Biopsy not advised as of now. - Switch Zosyn to Vanco i/v/o rash. Monitor trough levels with a goal of 15-20 - Eval per Liver Tx for GVHD possibility with rash and neutropenia Per Transplant: - Labs sent to r/o GVHD. Reports awaited Musculoskeletal S/p T8-L3 PSIF, T12 partial corpectomy - OR with neuro spine surgery 12/03/24: T8-L3 PSIF, T12 partial corpectomy- nsgy following Endo: - SSI 1 Nutrition: CLD - TF at goal - Can consider trial of slow progression of PO diet. Daily Plan Summary and Significant Findings or Concerns: - Start maribavir as per ID, - Stop Zosyn. Start Vanco I/v/o rash in bilateral groin - Derm reccs for triamnicolone ointment - extra dose of Neupogen today - Remove A-line today - supplemental O2 for hypoxia - now by humidified mask at 28% fio2 --> NC O2 now to continue - aggressive BPH - Swallow study passed - CLD started, TF at goal - Can consider trial of slow progression of PO diet. - FU GVHD labs - Can consider soft cervical collar to correct neck tilt - Consider RNF Barriers to transfer out of ICU: Respiratory monitoring, possible myelosuppression Disposition: RNF ProblemNoted DateDiagnosed DateBack wound, left, zzetumy6501/13/2025 Overview (01/13/2025): Medial back wound x2 Alteration in self-care xrkhqgn6901/13/2025t risk for falls01/13/2025Impaired xflgkzne49/29/3413Fxgtgkqsw83/11/2025Skin rash12/26/2024 Assessment & Plan (01/13/2025 1:05 PM EDT): Dermatology consulted for new erythematous rash on bilateral thighs - low suspicion for drug rash Chimerism (12/30): negative PLAN: - Monitor (rash now resolved) Assessment & Plan (01/12/2025 1:33 PM EDT): Dermatology consulted for new erythematous rash on bilateral thighs - low suspicion for drug rash Chimerism (12/30): negative PLAN: - Monitor (rash now resolved) Assessment & Plan (01/11/2025 1:07 PM EDT): Dermatology consulted for new erythematous rash on bilateral thighs - low suspicion for drug rash Chimerism (12/30): negative PLAN: - Monitor (rash now resolved) Assessment & Plan (01/10/2025 2:20 PM EDT): Dermatology consulted for new erythematous rash on bilateral thighs - low suspicion for drug rash Chimerism (12/30): negative PLAN: - Monitor (rash now resolved) Assessment & Plan (01/09/2025 2:15 PM EDT): Dermatology consulted for new erythematous rash on bilateral thighs - low suspicion for drug rash Chimerism (12/30): negative PLAN: - Monitor (rash now resolved) Assessment & Plan (01/08/2025 1:42 PM EDT): Dermatology consulted for new erythematous rash on bilateral thighs - low suspicion for drug rash Chimerism (12/30): negative PLAN: - Monitor (rash now resolved) Assessment & Plan (01/07/2025 2:12 PM EDT): Dermatology consulted for new erythematous rash on bilateral thighs - low suspicion for drug rash Chimerism (12/30): negative PLAN: - Monitor (rash now resolved) Assessment & Plan (01/06/2025 7:44 PM EDT): Dermatology consulted for new erythematous rash on bilateral thighs - low suspicion for drug rash Chimerism (12/30): negative PLAN: - Monitor (rash now resolved) Assessment & Plan (01/03/2025 12:52 PM EDT): Dermatology consulted for new erythematous rash on bilateral thighs - low suspicion for drug rash Chimerism (12/30): negative PLAN: - Monitor Assessment & Plan (01/02/2025 2:07 PM EDT): Dermatology consulted for new erythematous rash on bilateral thighs - low suspicion for drug rash Chimerism (12/30): negative PLAN: - Monitor Assessment & Plan (01/01/2025 2:36 PM EDT): Dermatology consulted for new erythematous rash on bilateral thighs - low suspicion for drug rash Chimerism (12/30): negative PLAN: - Monitor Assessment & Plan (12/31/2024 12:03 PM EDT): Dermatology consulted for new erythematous rash on bilateral thighs - low suspicion for drug rash Chimerism (12/30): negative PLAN: - Monitor Assessment & Plan (12/30/2024 12:57 PM EDT): Dermatology consulted for new erythematous rash on bilateral thighs - low suspicious for drug rash PLAN: - Chimerism - Appreciate Dermatology input Assessment & Plan (12/27/2024 1:26 PM EDT): Dermatology consulted for new erythematous rash on bilateral thighs PLAN: - Chimerism - Appreciate Dermatology input Cauda equina spetycxe54/09/2025Spinal stenosis of thoracolumbar atnxbm5212/24/2024 Ventilator xjsmffsizh99/08/2507Kelcdugrqmx90/08/4937Vyqmoaynayx01/08/2025ute sxyrsbpbrmtcqd32/08/8101Hgkesgomyu06/08/2025Electrolyte /15/2025 Assessment & Plan (01/13/2025 1:05 PM EDT): Mg 1.6 PLAN: - Mag 2 g IV once - continue magnesium oxide 400 mg BID - Daily Mag, Phos, CMP Assessment & Plan (01/12/2025 1:35 PM EDT): Mg improved PLAN: - continue magnesium oxide 400 mg BID - Daily Mag, Phos, CMP Assessment & Plan (01/11/2025 1:28 PM EDT): Mg 1.5 PLAN: - Magnesium sulfate Iv 4 g today - continue magnesium oxide 400 mg BID - Daily Mag, Phos, CMP Assessment & Plan (01/10/2025 2:22 PM EDT): Mg normalized following treatment PLAN: - continue magnesium oxide 400 mg BID - Daily Mag, Phos, CMP Assessment & Plan (01/09/2025 2:13 PM EDT): Mg normalized following treatment PLAN: - continue magnesium oxide 400 mg BID - Daily Mag, Phos, CMP Assessment & Plan (01/08/2025 1:44 PM EDT): Mg 1.6 PLAN: - magnesium sulfate 4 g IV today - continue magnesium oxide 400 mg BID - Daily Mag, Phos, CMP Assessment & Plan (01/07/2025 2:15 PM EDT): PLAN: - Daily Mag, Phos, CMP Assessment & Plan (01/06/2025 7:44 PM EDT): PLAN: - Daily Mag, Phos, CMP Assessment & Plan (01/03/2025 12:52 PM EDT): PLAN: - Daily Mag, Phos, CMP Assessment & Plan (01/02/2025 2:07 PM EDT): PLAN: - Daily Mag, Phos, CMP Assessment & Plan (01/01/2025 2:37 PM EDT): Hypomagnesemia - 1.6 Hypokalemia - 3.5 PLAN: - Mag 2 g IV once - K dur once - Daily Mag, Phos, CMP Assessment & Plan (12/27/2024 1:24 PM EDT): K - normalized PLAN: - Management per SICU - Daily Mag, Phos, CMP Assessment & Plan (12/26/2024 3:54 PM EDT): K - normalized PLAN: - Management per SICU - Daily Mag, Phos, CMP Assessment & Plan (12/23/2024 12:45 PM EDT): K - 4.7 PLAN: - Management per SICU - Daily Mag, Phos, CMP Assessment & Plan (12/20/2024 11:17 AM EDT): K - 4.5 PLAN: - Management per SICU - Daily Mag, Phos, CMP Assessment & Plan (12/19/2024 4:50 PM EDT): K - 5.0 PLAN: - Management per SICU - Daily Mag, Phos, CMP Assessment & Plan (12/18/2024 12:10 PM EDT): Hyperkalemia - 5.2 PLAN: - Management per SICU - Daily Mag, Phos, CMP Assessment & Plan (12/12/2024 1:54 PM EDT): Hyperkalemia - 5.3 PLAN: - Management per SICU - Daily Mag, Phos, CMP Assessment & Plan (12/11/2024 1:07 PM EDT): Hyperkalemia improved PLAN: - Daily Mag, Phos, CMP Assessment & Plan (12/10/2024 12:51 PM EDT): Hyperkalemia improved PLAN: - Daily Mag, Phos, CMP Assessment & Plan (12/09/2024 2:17 PM EDT): Hyperkalemia improved PLAN: - Daily Mag, Phos, CMP Assessment & Plan (12/08/2024 1:03 PM EDT): Hyperkalemia improved - 4.7 PLAN: - Daily Mag, Phos, CMP Assessment & Plan (12/07/2024 11:57 AM EDT): Hyperkalemia improved - 4.1 PLAN: - Daily Mag, Phos, CMP Assessment & Plan (12/06/2024 3:18 PM EDT): Hyperkalemia - 5.2 PLAN: - Lokelma TID x 2 doses - Daily Mag, Phos, CMP Assessment & Plan (12/05/2024 2:25 PM EDT): Hyperkalemia - 5.9 PLAN: - Lokelma TID x 3 doses - Daily Mag, Phos, CMP Assessment & Plan (12/04/2024 3:06 PM EDT): Hyperkalemia - 5.7 PLAN: - Lokelma x2 doses - Daily Mag, Phos, CMP Assessment & Plan (12/03/2024 1:31 PM EDT): Hyperkalemia - 5.4 PLAN: - Lokelma once - Daily Mag, Phos, CMP Assessment & Plan (12/02/2024 11:56 AM EDT): Hypomagnesemia - 1.6 PLAN: - Mag 2 g IV once - Daily Mag, Phos, CMP Assessment & Plan (11/29/2024 2:02 PM EDT): Hyperkalemia - 5.4 Hypomagnesemia - 1.4 PLAN: - Lokelma 10 g once - Mag 2 g IV once - Daily Mag, Phos, CMP Abdominal fluid lajhzvvyln10/13/2025Dialysis weddeme2411/25/2024KI (acute kidney injury)11/24/20245779Wlqvrpsxsnbvkr27/08/2025 Assessment & Plan (01/13/2025 1:04 PM EDT): Pt admitted w AMS following fall at home CT brain (11/22) no acute abnormalities Peth negative Mental status improved overall PLAN: - Monitor mental status - Delirium protocol Assessment & Plan (01/12/2025 1:35 PM EDT): Pt admitted w AMS following fall at home CT brain (11/22) no acute abnormalities Peth negative Mental status improved overall PLAN: - Monitor mental status - Delirium protocol Assessment & Plan (01/11/2025 1:28 PM EDT): Pt admitted w AMS following fall at home CT brain (11/22) no acute abnormalities Peth negative Mental status improved overall PLAN: - Monitor mental status - Delirium protocol Assessment & Plan (01/10/2025 2:22 PM EDT): Pt admitted w AMS following fall at home CT brain (8/8) no acute abnormalities Peth negative Mental status improved overall PLAN: - Monitor mental status - Delirium protocol Assessment & Plan (01/09/2025 2:13 PM EDT): Pt admitted w AMS following fall at home CT brain (8/8) no acute abnormalities Peth negative Mental status improved overall PLAN: - Monitor mental status - Delirium protocol Assessment & Plan (01/08/2025 1:44 PM EDT): Pt admitted w AMS following fall at home CT brain (8/8) no acute abnormalities Peth negative Mental status improved overall PLAN: - Monitor mental status - Delirium protocol Assessment & Plan (01/07/2025 2:15 PM EDT): Pt admitted w AMS following fall at home CT brain (8/8) no acute abnormalities Peth negative Mental status improved overall PLAN: - Monitor mental status - Delirium protocol Assessment & Plan (01/06/2025 7:44 PM EDT): Pt admitted w AMS following fall at home CT brain (8/8) no acute abnormalities Peth negative Mental status improved overall PLAN: - Monitor mental status - Delirium protocol Assessment & Plan (01/03/2025 12:52 PM EDT): Pt admitted w AMS following fall at home CT brain (8/8) no acute abnormalities Peth negative Mental status improved overall PLAN: - Monitor mental status - Delirium protocol Assessment & Plan (01/02/2025 2:07 PM EDT): Pt admitted w AMS following fall at home CT brain (8/8) no acute abnormalities Peth negative Mental status improved PLAN: - Monitor mental status - Delirium protocol - Wean narcotics Assessment & Plan (01/01/2025 2:36 PM EDT): Pt admitted w AMS following fall at home CT brain (8/8) no acute abnormalities Peth negative Mental status improved PLAN: - Monitor mental status - Delirium protocol - Wean narcotics Assessment & Plan (12/31/2024 12:03 PM EDT): Pt admitted w AMS following fall at home CT brain (8/8) no acute abnormalities Peth negative Mental status improved PLAN: - Monitor mental status - Delirium protocol - Wean narcotics Assessment & Plan (12/30/2024 12:56 PM EDT): Pt admitted w AMS following fall at home CT brain (8/8) no acute abnormalities Peth negative Mental status improved PLAN: - Monitor mental status - Delirium protocol - Wean narcotics - Continue Seroquel 25 mg qhs Assessment & Plan (12/27/2024 1:23 PM EDT): Pt admitted w AMS following fall at home CT brain (8/8) no acute abnormalities Peth negative PLAN: - Monitor mental status - Delirium protocol - Wean narcotics - Continue Seroquel 25 mg qhs Assessment & Plan (12/26/2024 3:55 PM EDT): Pt admitted w AMS following fall at home. CT brain (8/8) no acute abnormalities Peth negative ABG 7.4/36/84/22 lactate 0.8 UA, BCx2 negative Plan: - consulted psych appreciate recommendation - wean narcotics - delirium protocol - continue Seroquel 25mg qhs Assessment & Plan (12/23/2024 12:45 PM EDT): Pt admitted w AMS following fall at home. CT brain (8/8) no acute abnormalities Peth negative ABG 7.4/36/84/22 lactate 0.8 UA, BCx2 negative Plan: - consulted psych (started Abilify 5mg BID and 10mg qhs). appreciate recommendation - hold narcotics - delirium protocol Assessment & Plan (12/20/2024 11:17 AM EDT): Pt admitted w AMS following fall at home. CT brain (8/8) no acute abnormalities Peth negative ABG 7.4/36/84/22 lactate 0.8 UA, BCx2 negative Plan: - consulted psych (started Abilify 5mg BID and 10mg qhs). appreciate recommendation - hold narcotics - delirium protocol Assessment & Plan (12/19/2024 4:50 PM EDT): Pt admitted w AMS following fall at home. CT brain (8/8) no acute abnormalities Peth negative ABG 7.4/36/84/22 lactate 0.8 UA, BCx2 negative Plan: - consulted psych (started Abilify 5mg BID and 10mg qhs). appreciate recommendation - hold narcotics - delirium protocol Assessment & Plan (12/18/2024 12:10 PM EDT): Pt admitted w AMS following fall at home. CT brain (8/8) no acute abnormalities Peth negative ABG 7.4/36/84/22 lactate 0.8 UA, BCx2 negative Plan: - consulted psych (started Abilify 5mg BID and 10mg qhs). appreciate recommendation - hold narcotics - delirium protocol Assessment & Plan (12/12/2024 1:54 PM EDT): Pt admitted w AMS following fall at home. CT brain (8/8) no acute abnormalities Peth negative ABG 7.4/36/84/22 lactate 0.8 UA, BCx2 negative Plan: - consulted psych (started Abilify 5mg BID and 10mg qhs). appreciate recommendation - hold narcotics - delirium protocol Assessment & Plan (12/11/2024 1:06 PM EDT): Pt admitted w AMS following fall at home. CT brain (8/8) no acute abnormalities Peth negative ABG 7.4/36/84/22 lactate 0.8 UA, BCx2 negative Plan: - consulted psych (started Abilify 5mg BID and 10mg qhs). appreciate recommendation - hold narcotics - delirium protocol Assessment & Plan (12/10/2024 12:51 PM EDT): Pt admitted w AMS following fall at home. CT brain (8/8) no acute abnormalities Peth negative ABG 7.4/36/84/22 lactate 0.8 UA, BCx2 negative Plan: - consulted psych (started Abilify 5mg BID and 10mg qhs). appreciate recommendation - hold narcotics - delirium protocol Assessment & Plan (12/09/2024 2:16 PM EDT): Pt admitted w AMS following fall at home. CT brain (8/8) no acute abnormalities Peth negative ABG 7.4/36/84/22 lactate 0.8 UA, BCx2 negative Plan: - consulted psych (started Abilify 5mg BID and 10mg qhs). appreciate recommendation - hold narcotics - delirium protocol Assessment & Plan (12/08/2024 1:03 PM EDT): Pt admitted w AMS following fall at home. CT brain (8/8) no acute abnormalities Peth negative ABG 7.4/36/84/22 lactate 0.8 UA, BCx2 negative Plan: - consulted psych (started Abilify 5mg BID and 10mg qhs). appreciate recommendation - hold narcotics - delirium protocol Assessment & Plan (12/07/2024 11:57 AM EDT): Pt admitted w AMS following fall at home. CT brain (8/8) no acute abnormalities Peth negative ABG 7.4/36/84/22 lactate 0.8 UA, BCx2 negative Plan: - consulted psych (started Abilify 5mg BID and 10mg qhs). appreciate recommendation - hold narcotics - delirium protocol Assessment & Plan (12/06/2024 3:18 PM EDT): Pt admitted w AMS following fall at home. CT brain (8/8) no acute abnormalities Peth negative ABG 7.4/36/84/22 lactate 0.8 UA, BCx2 negative Plan: - consulted psych (started Abilify 5mg BID and 10mg qhs). appreciate recommendation - hold narcotics - delirium protocol Assessment & Plan (12/05/2024 2:25 PM EDT): Pt admitted w AMS following fall at home. CT brain (8/8) no acute abnormalities Peth negative ABG 7.4/36/84/22 lactate 0.8 UA, BCx2 negative Plan: - consulted psych (started Abilify 5mg BID and 10mg qhs). appreciate recommendation - hold narcotics - delirium protocol Assessment & Plan (12/04/2024 3:05 PM EDT): Pt admitted w AMS following fall at home. CT brain (8/8) no acute abnormalities Peth negative ABG 7.4/36/84/22 lactate 0.8 UA, BCx2 negative Plan: - consulted psych (started Abilify 5mg BID and 10mg qhs). appreciate recommendation - hold narcotics -delirium protocol Assessment & Plan (12/03/2024 1:31 PM EDT): Pt admitted w AMS following fall at home. CT brain (8/8) no acute abnormalities Peth negative ABG 7.4/36/84/22 lactate 0.8 UA, BCx2 negative Plan: - consulted psych (started Abilify 5mg BID and 10mg qhs). appreciate recommendation - hold narcotics -delirium protocol Assessment & Plan (12/02/2024 11:56 AM EDT): Pt admitted w AMS following fall at home. CT brain (8/8) no acute abnormalities Peth negative ABG 7.4/36/84/22 lactate 0.8 UA, BCx2 negative Plan: - consulted psych (started Abilify 5mg BID and 10mg qhs). appreciate recommendation - hold narcotics -delirium protocol Assessment & Plan (11/29/2024 1:51 PM EDT): Pt admitted w AMS following fall at home. CT brain (8/8) no acute abnormalities Peth negative ABG 7.4/36/84/22 lactate 0.8 UA, BCx2 negative Plan: - consult psych (started Abilify 5mg BID and 10mg qhs). appreciate recommendation - hold narcotics -delirium protocol Assessment & Plan (11/28/2024 11:37 AM EDT): Pt admitted w AMS following fall at home. CT brain (8/8) no acute abnormalities Peth negative ABG 7.4/36/84/22 lactate 0.8 UA, BCx2 negative Plan: - consult psych (started Abilify 5mg BID and 10mg qhs). appreciate recommendation - hold narcotics -delirium protocol Assessment & Plan (11/27/2024 4:40 PM EDT): Pt admitted w AMS following fall at home. CT brain (8/8) no acute abnormalities Peth negative ABG 7.4/36/84/22 lactate 0.8 UA negative Plan: - consult psych (started Abilify 5mg BID and 10mg qhs). appreciate recommendatsion - f/u pending BCx2 - follow-up on abdominal fluid cultures - hold narcotics -delirium protocol Assessment & Plan (11/26/2024 12:16 PM EDT): Pt admitted w AMS following fall at home. CT brain (8/8) no acute abnormalities Peth negative ABG 7.4/36/84/22 lactate 0.8 UA negative Plan: - consult psych (started Abilify 5mg BID and 10mg qhs). appreciate recommendatsion - f/u pending BCx2 - follow-up on abdominal fluid cultures - hold narcotics -delirium protocol Assessment & Plan (11/25/2024 1:21 PM EDT): Pt admitted w AMS following fall at home. CT brain (8/8) no acute abnormalities Peth negative ABG 7.4/36/84/22 lactate 0.8 UA negative /9 less confused today, less agitated Plan: - consult psych (started Abilify 5mg BID and 10mg qhs). appreciate recommendatsion - f/u pending BCx2 - planning on aspirating/placing drain for right lateral peritoneal fluid collection - hold narcotics -delirium protocol Assessment & Plan (11/24/2024 1:57 PM EDT): Pt admitted w AMS following fall at home. CT brain (8/8) no acute abnormalities Peth negative ABG 7.4/36/84/22 lactate 0.8 UA negative 8/9 less confused today, less agitated Plan: - consult psych (started Abilify 5mg TID PRN). appreciate recommendatsion - f/u pending BCx2 - planning on aspirating/placing drain for right lateral peritoneal fluid collection - hold narcotics -delirium protocol Assessment & Plan (11/23/2024 1:33 PM EDT): Pt admitted w AMS following fall at home. CT brain (11/22) no acute abnormalities Peth negative ABG 7.4/ lactate 0.8 UA negative 8/9 less confused today, less agitated Plan: - consult psych (started Abilify 5mg TID PRN). appreciate recommendatsion - f/u pending BCx2 - may consider aspirating/placing drain in hepatic collection pending clinical course - hold narcotics Cholangitis of transplanted liver10/28/2024Nausea & wbjuohtg59/10/2025 Assessment & Plan (10/29/2024 12:49 PM EDT): Assessment: KUB 10: Gastric gaseous distention. Scattered gas-filled nondilated small [...] percutaneous drain within the known biliary leak. - > reviewed NG removed 10/25 due to minimal [...] percutaneous drain within the known biliary leak. - > reviewed NG removed 10/25 due to minimal [...] percutaneous drain within the known biliary leak. - > reviewed NG removed 10/25 due to minimal [...] percutaneous drain within the known biliary leak. - > reviewed NG removed 10/25 due to minimal output Nausea and vomiting resolved Plan: Monitor Advance diet to regular Continue bowel regimen Assessment & Plan (10/25/2024 2:02 PM EDT): Assessment: KUB 7/10: Gastric gaseous distention. Scattered gas-filled nondilated small bowel and colon. NG placed 10: [address] abdomen and pelvis [...] percutaneous drain within the known biliary leak. - > reviewed Plan: Continue NG tube, monitor output [...] oral contrast as per Dr. Maldonado Generalized nrlzpifz13/09/2025Chronic bilateral low back pain without sciatica 10/22/2024 [...] contrast ordered today as per neurosurgery recommendations [id number]/21/2024 Assessment & Plan (10/29/2024 12:48 PM EDT): Assessment: Reported vertigo CT brain 10/07: negative MRI brain 10/24: negative for acute abnormality Plan: Flomax stopped 10/21 Monitor vitals Discussed with Neurology - plan for outpatient follow up with Vestibular Neurologist, Dr. Roach Assessment & Plan (10/28/2024 2:32 PM EDT): Assessment: Reported vertigo CT brain 10/07: negative MRI brain 10/24: negative for acute abnormality Plan: Flomax stopped 7/7 Monitor vitals Discussed with Neurology - plan for outpatient follow up with Vestibular Neurologist, Dr. Roach Assessment & Plan (10/27/2024 10:29 AM EDT): Assessment: Reported vertigo CT brain 10/07: negative MRI brain 10/24: negative for acute abnormality Plan: Flomax stopped 7/7 Monitor vitals Discussed with Neurology - plan for outpatient follow up with Vestibular Neurologist, Dr. Roach Assessment & Plan (10/26/2024 11:03 AM EDT): Assessment: Reported vertigo CT brain 10/07: negative MRI brain 10/24: negative for acute abnormality Plan: Flomax stopped 7/7 Monitor vitals Discussed with Neurology - plan for outpatient follow up with Vestibular Neurologist, Dr. Roach Assessment & Plan (10/25/2024 1:57 PM EDT): Assessment: Reported vertigo CT brain 10/07: negative MRI brain 10/24: negative for acute abnormality Plan: Flomax stopped [...] PT to assess patient continue to monitor Enterococcus faecalis jbbrhdkih92/06/2025 Assessment & Plan (01/13/2025 1:04 PM EDT): BC 830 + enterococcus faecalis Zosyn (12/14-12/26, 12/27-01/02) Vancomycin (12/16-12/27) BC 9/1 + Enterococcus faecalis BC 9/2 + Enterococcus faecalis ECHO 9/3: no evidence of vegetations BC 12/20 - NGTD BC 01/06 NGTD PLAN: - Completed course of Zosyn 01/02 - follow-up repeat blood cultures in setting of rising CRP and clinical decline Assessment & Plan (01/12/2025 1:35 PM EDT): BC 12/14 + enterococcus faecalis Zosyn (12/14-12/26, 12/27-01/02) Vancomycin (12/16-12/27) BC 9/1 + Enterococcus faecalis BC 9/2 + Enterococcus faecalis ECHO /3: no evidence of vegetations BC 12/20 - NGTD BC 01/06 NGTD PLAN: - Completed course of Zosyn 01/02 - follow-up repeat blood cultures in setting of rising CRP and clinical decline Assessment & Plan (01/11/2025 1:28 PM EDT): BC 830 + enterococcus faecalis Zosyn (12/14-12/26, 12/27-01/02) Vancomycin (12/16-12/27) BC 9/1 + Enterococcus faecalis BC 9/2 + Enterococcus faecalis ECHO 9/3: no evidence of vegetations BC 12/20 - NGTD BC 01/06 NGTD PLAN: - Completed course of Zosyn 01/02 - follow-up repeat blood cultures in setting of rising CRP and clinical decline Assessment & Plan (01/10/2025 2:22 PM EDT): BC 8/30 + enterococcus faecalis Zosyn (12/14-12/26, 12/27-01/02) Vancomycin (12/16-12/27) BC 9/1 + Enterococcus faecalis BC 9/2 + Enterococcus faecalis ECHO 9/3: no evidence of vegetations BC 12/20 - NGTD BC 01/06 NGTD PLAN: - Completed course of Zosyn 01/02 - follow-up repeat blood cultures in setting of rising CRP and clinical decline Assessment & Plan (01/09/2025 2:14 PM EDT): BC 8/30 + enterococcus faecalis Zosyn (12/14-12/26, 12/27-01/02) Vancomycin (12/16-12/27) BC 9/1 + Enterococcus faecalis BC 9/2 + Enterococcus faecalis ECHO 9/3: no evidence of vegetations BC 12/20 - NGTD PLAN: - Completed course of Zosyn 01/02 - follow-up repeat blood cultures in setting of rising CRP and clinical decline Assessment & Plan (01/08/2025 1:44 PM EDT): BC 8/30 + enterococcus faecalis Zosyn (12/14-12/26, 12/27-01/02) Vancomycin (12/16-12/27) BC 9/ + Enterococcus faecalis BC 9/2 + Enterococcus faecalis ECHO 9/3: no evidence of vegetations BC 12/20 - NGTD PLAN: - Completed course of Zosyn 01/02 - follow-up repeat blood cultures in setting of rising CRP and clinical decline Assessment & Plan (01/07/2025 2:15 PM EDT): BC 8/30 + enterococcus faecalis Zosyn (12/14-12/26, 12/27-01/02) Vancomycin (12/16-12/27) BC 9/1 + Enterococcus faecalis BC 9/2 + Enterococcus faecalis ECHO 9/3: no evidence of vegetations BC 12/20 - NGTD PLAN: - Completed course of Zosyn 01/02 - follow-up repeat blood cultures in setting of rising CRP and clinical decline Assessment & Plan (01/06/2025 7:44 PM EDT): BC 8/30 + enterococcus faecalis Zosyn (12/14-12/26, 12/27-01/02) Vancomycin (12/16-12/27) BC 9/1 + Enterococcus faecalis BC 9/2 + Enterococcus faecalis ECHO 9/3: no evidence of vegetations BC 12/20 - NGTD PLAN: - Completed course of Zosyn 01/02 - follow-up repeat blood cultures in setting of rising CRP and clinical decline Assessment & Plan (01/03/2025 12:51 PM EDT): BC 8/30 + enterococcus faecalis Zosyn (12/14-12/26, 12/27-01/02) Vancomycin (12/16-12/27) BC 9/1 + Enterococcus faecalis BC 9/2 + Enterococcus faecalis ECHO 9/3: no evidence of vegetations BC 12/20 - NGTD PLAN: - Completed course of Zosyn 01/02 Assessment & Plan (01/02/2025 2:07 PM EDT): BC 830 + enterococcus faecalis Zosyn (12/14-12/26, 12/27- ) Vancomycin (12/16-12/27) BC 9/1 + Enterococcus faecalis BC 9/2 + Enterococcus faecalis ECHO 9/3: no evidence of vegetations BC 12/20 - NGTD PLAN: - ID following, appreciate recommendations - Continue Zosyn through 01/02 per ID recommendations Assessment & Plan (01/01/2025 2:36 PM EDT): BC 830 + enterococcus faecalis Zosyn (12/14-12/26, 12/27- ) Vancomycin (12/16-12/27) BC 9/1 + Enterococcus faecalis BC 9/2 + Enterococcus faecalis ECHO 9/3: no evidence of vegetations BC 12/20 - NGTD PLAN: - ID following, appreciate recommendations - Continue Zosyn through 01/02 per ID recommendations Assessment & Plan (12/31/2024 12:03 PM EDT): BC 8/30 + enterococcus faecalis Zosyn (12/14-12/26, 12/27- ) Vancomycin (12/16-12/27) BC 9/1 + Enterococcus faecalis BC 9/2 + Enterococcus faecalis ECHO 9/3: no evidence of vegetations BC 12/20 - NGTD PLAN: - ID following, appreciate recommendations - Continue Zosyn through 01/02 per ID recommendations Assessment & Plan (12/30/2024 12:56 PM EDT): BC 8/30 + enterococcus faecalis Zosyn (12/14-12/26, 12/27- ) Vancomycin (12/16-12/27) BC 9/1 + Enterococcus faecalis BC 9/2 + Enterococcus faecalis ECHO 9/3: no evidence of vegetations BC 12/20 - NGTD PLAN: - ID following, appreciate recommendations - Continue Zosyn, clarify duration Assessment & Plan (12/27/2024 1:23 PM EDT): BC 8/30 + enterococcus faecalis Zosyn (12/14-12/26) Vancomycin (12/16 - ) BC 9/1 + Enterococcus faecalis BC 9/2 + Enterococcus faecalis ECHO 9/3: no evidence of vegetations BC 12/20 - NGTD PLAN: - ID following, appreciate recommendations - Continue Vancomycin Assessment & Plan (12/26/2024 3:55 PM EDT): BC 8/30 + enterococcus faecalis Zosyn (12/14 - ) Vancomycin (12/16 - ) BC 9/1 + Enterococcus faecalis BC 9/2 + Enterococcus faecalis ECHO 9/3: no evidence of vegetations BC 12/20 - NGTD PLAN: - ID following, appreciate recommendations - Continue Zosyn. Assessment & Plan (12/23/2024 12:44 PM EDT): BC 8/30 + enterococcus faecalis Zosyn (12/14 - ) Vancomycin (12/16 - ) BC 9/1 + Enterococcus faecalis BC 9/2 + Enterococcus faecalis ECHO 9/3: no evidence of vegetations BC 12/20 - NGTD PLAN: - ID following, appreciate recommendations - Continue Zosyn. Assessment & Plan (12/20/2024 11:17 AM EDT): BC 8/30 + enterococcus faecalis Zosyn (12/14 - ) Vancomycin (12/16 - ) BC 9/1 + Enterococcus faecalis BC 9/2 + Enterococcus faecalis ECHO 9/3: no evidence of vegetations PLAN: - ID following, appreciate recommendations - Continue Zosyn. Plan to dc vanco. Assessment & Plan (12/19/2024 4:50 PM EDT): BC 8/30 + enterococcus faecalis Zosyn (12/14 - ) Vancomycin (12/16 - ) BC 9/1 + Enterococcus faecalis BC 9/2 + Enterococcus faecalis ECHO 9/3: no evidence of vegetations PLAN: - ID following, appreciate recommendations - Continue Zosyn and Vancomycin Assessment & Plan (12/18/2024 12:11 PM EDT): BC 8/30 + enterococcus faecalis Zosyn (12/14 - ) Vancomycin (12/16 - ) BC 9/1 + Enterococcus faecalis BC 9/2 + GPC ECHO 9/3: no evidence of vegetations PLAN: - ID following, appreciate recommendations - Continue Zosyn and Vancomycin - Obtain ERCP for potential source of bacteremia. NPO midnight. 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 Financial assistance applied - awaiting response) - CMV DNA weekly on Monday Assessment & Plan (01/12/2025 1:35 PM EDT): Donor + / Recip - CMV DNA 8/25 - 105 CMV DNA 9/ - 62 CMV DNA 9/8 < 35 CMV DNA /15 negative CMV DNA Maribavir stopped 12/30 PLAN: - continue letermovir 480 mg Daily for secondary prophylaxis per ID (prior auth was denies on 01/07,appeal submitted) - CMV DNA weekly on Monday Assessment & Plan (01/11/2025 1:28 PM EDT): Donor + / Recip - CMV DNA 8/25 - 105 CMV DNA 9/ - 62 CMV DNA 9/8 < 35 CMV DNA /15 negative CMV DNA Maribavir stopped 12/30 PLAN: - continue letermovir 480 mg Daily for secondary prophylaxis per ID (prior auth was denies on 01/07,appeal submitted) - CMV DNA weekly on Monday Assessment & Plan (01/10/2025 2:23 PM EDT): Donor + / Recip - CMV DNA 8/25 - 105 CMV DNA 9/1 - 62 CMV DNA 9/8 < 35 CMV DNA /15 negative CMV DNA Maribavir stopped 12/30 PLAN: - continue letermovir 480 mg Daily for secondary prophylaxis per ID (prior auth was denies on 01/07,appeal submitted) - CMV DNA weekly on Monday Assessment & Plan (01/09/2025 2:13 PM EDT): Donor + / Recip - CMV DNA 8/25 - 105 CMV DNA 9/1 - 62 CMV DNA 9/8 < 35 CMV DNA /15 negative CMV DNA Maribavir stopped 12/30 PLAN: - continue letermovir 480 mg Daily for secondary prophylaxis per ID - CMV DNA weekly on Monday Assessment & Plan (01/08/2025 1:45 PM EDT): Donor + / Recip - CMV DNA 8/25 - 105 CMV DNA 9/1 - 62 CMV DNA 9/8 < 35 CMV DNA /15 negative CMV DNA Maribavir stopped 12/30 PLAN: - continue letermovir 480 mg Daily for secondary prophylaxis per ID - CMV DNA weekly on Monday Assessment & Plan (01/07/2025 2:16 PM EDT): Donor + / Recip - CMV DNA 8/25 - 105 CMV DNA 9/1 - 62 CMV DNA 9/8 < 35 CMV DNA /15 negative CMV DNA Maribavir stopped 12/30 PLAN: - starting letermovir 480 mg Daily for secondary prophylaxis per ID - CMV DNA weekly on Monday Assessment & Plan (01/06/2025 7:43 PM EDT): Donor + / Recip - CMV DNA 8/25 - 105 CMV DNA 9/1 - 62 CMV DNA 9/8 < 35 CMV DNA /15 negative Maribavir stopped 12/30 PLAN: - CMV DNA weekly on Monday Assessment & Plan (01/03/2025 12:50 PM EDT): Donor + / Recip - CMV DNA 8/25 - 105 CMV DNA 9/ - 62 CMV DNA 9/8 < 35 CMV DNA 9/15 negative Maribavir stopped 12/30 PLAN: - CMV DNA weekly on Monday Assessment & Plan (01/02/2025 2:06 PM EDT): Donor + / Recip - CMV DNA 8/ - 105 CMV DNA 9/ - 62 CMV DNA 9/8 < 35 CMV DNA /15 negative Maribavir stopped 12/30 PLAN: - CMV DNA weekly on Monday Assessment & Plan (01/01/2025 2:36 PM EDT): Donor + / Recip - CMV DNA 8/ - 105 CMV DNA 9/ - 62 CMV DNA 9/8 < 35 CMV DNA /15 negative Maribavir stopped 12/30 PLAN: - CMV DNA weekly on Monday Assessment & Plan (12/31/2024 12:02 PM EDT): Donor + / Recip - CMV DNA 8/ - 105 CMV DNA 9/ - 62 CMV DNA 9/8 < 35 CMV DNA /15 negative Maribavir stopped 12/30 PLAN: - CMV DNA weekly on Monday Assessment & Plan (12/30/2024 12:55 PM EDT): Donor + / Recip - CMV DNA 8/25 - 105 CMV DNA 9/ - 62 CMV DNA 9/8 < 35 CMV DNA 9/15 negative PLAN: - Stop Maribavir per ID recommendations - CMV DNA weekly on Monday Assessment & Plan (12/27/2024 1:22 PM EDT): Donor + / Recip - CMV DNA 8/25 - 105 CMV DNA 9/ - 62 CMV DNA 9/8 < 35 PLAN: - Continue Maribavir (switched from GCV 12/26 due to leukopenia) - CMV DNA weekly on Monday Assessment & Plan (12/26/2024 3:53 PM EDT): Donor + / Recip - CMV DNA 12/09 - CMV DNA 12/16 CMV DNA 12/23 < 35 PLAN: - stop ganciclovir and start maribavir w leukopenia - CMV DNA weekly on Monday Assessment & Plan (12/23/2024 12:44 PM EDT): Donor + / Recip - CMV DNA 12/09 CMV DNA 12/16 CMV DNA 12/23 < 35 PLAN: - continue Valcyte 900 mg BID - CMV DNA weekly on Monday Assessment & Plan (12/20/2024 11:16 AM EDT): Donor + / Recip - CMV DNA 12/09 CMV DNA 12/16 PLAN: - continue Valcyte 900 mg BID - CMV DNA weekly on Monday Assessment & Plan (12/19/2024 4:49 PM EDT): Donor + / Recip - CMV DNA 12/09 CMV DNA 12/16 PLAN: - continue Valcyte 900 mg BID - CMV DNA weekly on Monday Assessment & Plan (12/18/2024 12:04 PM EDT): Donor + / Recip - CMV DNA 12/09 CMV DNA 12/16 PLAN: - continue Valcyte 900 mg BID - CMV DNA weekly on Monday Assessment & Plan (12/12/2024 1:54 PM EDT): Donor + / Recip - CMV DNA 12/09 PLAN: - continue Valcyte 900 mg BID - CMV DNA weekly on Monday Assessment & Plan (12/11/2024 1:06 PM EDT): Donor + / Recip - CMV DNA 12/09 PLAN: - continue Valcyte 900 mg BID - CMV DNA weekly on Monday Assessment & Plan (10/29/2024 12:50 PM EDT): Assessment: CMV IgG: Donor Positive/ Recipient Negative CMV DNA 10/09- 385 CMV DNA 6/30-452 CMV DNA 7/7- 293 CMV DNA / - 41 Plan: Continue Valcyte 900 mg BID (started [...] IgG: Donor Positive/ Recipient Negative CMV DNA 6/- 385 CMV DNA 6/30-452 CMV DNA 7/7- [...] CMV DNA 10/09- 385 CMV DNA 6/30-452 Plan: - Valcyte 900mg BID (started 10/09) - hold acyclovir while on Valcyte - follow CMV levels qMon Assessment & Plan (10/19/2024 12:50 PM EDT): Assessment: CMV IgG: Donor Positive/ Recipient Negative CMV DNA 10/09- 385 CMV DNA 6/30-452 Plan: - Valcyte 900mg BID (started 10/09) - hold acyclovir while on Valcyte - follow CMV levels qMon Assessment & Plan (10/18/2024 11:03 AM EDT): Assessment: CMV IgG: Donor Positive/ Recipient Negative CMV DNA 6/- 385 CMV DNA Plan: - Valcyte 900mg BID (started 10/09) - hold acyclovir while on Valcyte - follow CMV levels qMon Assessment & Plan (10/17/2024 11:43 AM EDT): Assessment: CMV IgG: Donor Positive/ Recipient Negative CMV DNA 10/09- CMV DNA Plan: - Valcyte 900mg BID (started 10/09) - hold acyclovir while on Valcyte - follow CMV levels qMon Assessment & Plan (10/16/2024 12:36 PM EDT): Assessment: CMV IgG: Donor Positive/ Recipient Negative CMV DNA 10/09- CMV DNA Plan: - Valcyte 900mg BID (started 10/09) - hold acyclovir while on Valcyte - follow CMV levels qMon Assessment & Plan (10/15/2024 4:09 PM EDT): Assessment: CMV IgG: Donor Positive/ Recipient Negative CMV DNA 10/09- CMV DNA Plan: - Valcyte 900mg BID (started 10/09) - hold acyclovir while on Valcyte - follow CMV levels qMon Assessment & Plan (10/14/2024 4:43 PM EDT): Assessment: CMV IgG: Donor Positive/ Recipient Negative CMV DNA 10/09- Plan: - Valcyte 450mg BID (started 10/09) - hold acyclovir while on Valcyte - follow CMV levels qMon Assessment & Plan (10/13/2024 8:39 AM EDT): Assessment: CMV IgG: Donor Positive/ Recipient Negative CMV DNA 10/09- Plan: - Valcyte 450mg BID (started 10/09) [...] acyclovir start valcyte 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 Interval increase in volume of a low-attenuation, medium-sized left pleural effusion ECHO 73: - The left ventricle is normal in size. Left ventricular systolic function is normal. EF = 55 ?? 5%(visual est.) - Aortic sclerosis. - Exam was [...] a low-attenuation, medium-sized left pleural effusion ECHO 73: - The left ventricle is normal in size. Left ventricular systolic function is normal. EF = 55 ?? 5%(visual est.) - Aortic sclerosis. - Exam was [...] a low-attenuation, medium-sized left pleural effusion ECHO 73: - The left ventricle is normal in size. Left ventricular systolic function is normal. EF = 55 ?? 5%(visual est.) - Aortic sclerosis. - Exam was [...] function is normal. EF = 55 ?? 5%(visual est.) - Aortic sclerosis. - Exam was [...] function is normal. EF = 55 ?? 5%(visual est.) - Aortic sclerosis. - Exam was compared with the prior CC echocardiographic exam performed on 09/21/2024. Right pleural effusion seen. RVP (+) parainfluenza 3 S/p left thoracentesis 10/14: 320 cc drained, culture NGTD On room air Plan: Continue to monitor respiratory status Duoneb PRN Tessalon perles PRN Assessment & Plan (10/24/2024 4:54 PM EDT): Assessment: CT chest 10/0859-Vlnkrzqw-ypfkl loculated right hydropneumothorax; the pneumothorax .Interval increasein volume of a low-attenuation, medium-sized left pleural effusion (+)parainfluenza thoracentesis 10/14- drained 320cc cultures-NTD cytology negative Plan: continue to monitor respiratory status duoneb prn follow cultures Diuresis as able Assessment & Plan (10/23/2024 11:04 AM EDT): Assessment: CT chest 6/69-Zgexjqsp-yfydr loculated right hydropneumothorax; the pneumothorax .Interval increasein volume of a low-attenuation, medium-sized left pleural effusion (+)parainfluenza thoracentesis 6/30- drained 320cc cultures-NTD cytology negative Plan: continue to monitor respiratory status duoneb prn follow cultures Diuresis as able Assessment & Plan (10/22/2024 4:37 PM EDT): Assessment: CT chest 6/40-Pfagfqfk-fbqtn loculated right hydropneumothorax; the pneumothorax .Interval increasein volume of a low-attenuation, medium-sized left pleural effusion (+)parainfluenza thoracentesis 6/30- drained 320cc cultures-NTD cytology negative Plan: continue to monitor respiratory status duoneb prn follow cultures Diuresis as able Assessment & Plan (10/21/2024 4:21 PM EDT): Assessment: CT chest 6/32-Qhqxramw-iaffx loculated right hydropneumothorax; the pneumothorax .Interval increasein volume of a low-attenuation, medium-sized left pleural effusion (+)parainfluenza thoracentesis 6/30- drained 320cc cultures-NTD cytology negative Plan: continue to monitor respiratory status duoneb prn follow cultures Diuresis as able Assessment & Plan (10/20/2024 11:00 AM EDT): Assessment: CT chest 6/67-Drahaskk-goink loculated right hydropneumothorax; the pneumothorax .Interval increasein volume of a low-attenuation, medium-sized left pleural effusion (+)parainfluenza thoracentesis 6/30- drained 320cc Plan: continue to monitor respiratory status duoneb prn followup cultures from thoracentesis and cytology pending Diuresis as able Assessment & Plan (10/19/2024 12:47 PM EDT): Assessment: CT chest 6/87-Yxlmwhzu-kpydd loculated right hydropneumothorax; the pneumothorax .Interval increasein volume of a low-attenuation, medium-sized left pleural effusion (+)parainfluenza thoracentesis 6/30- drained 320cc Plan: continue to monitor respiratory status duoneb prn continue zosyn for now followup cultures from thoracentesis and cytology pending Diuresis as able Assessment & Plan (10/18/2024 11:01 AM EDT): Assessment: CT chest 6/97-Tszqtqkb-yhryp loculated right hydropneumothorax; the pneumothorax .Interval increasein volume of a low-attenuation, medium-sized left pleural effusion (+)parainfluenza thoracentesis 6/30- drained 320cc Plan: continue to monitor respiratory status duoneb prn continue zosyn for now followup cultures from thoracentesis and cytology pending Diuresis as able Assessment & Plan (10/17/2024 11:16 AM EDT): Assessment: CT chest 6/82-Ljbxkdtr-pwkca loculated right hydropneumothorax; the pneumothorax .Interval increasein volume of a low-attenuation, medium-sized left pleural effusion (+)parainfluenza thoracentesis 6/30- drained 320cc Plan: continue to monitor respiratory status duoneb prn continue zosyn for now followup cultures from thoracentesis and cytology pending Diuresis as able Assessment & Plan (10/16/2024 1:20 PM EDT): Assessment: CT chest 6/34-Apzeazzt-onehd loculated right hydropneumothorax; the pneumothorax .Interval increasein volume of a low-attenuation, medium-sized left pleural effusion (+)parainfluenza thoracentesis 6/30- drained 320cc Plan: continue to monitor respiratory status duoneb prn continue zosyn for now followup cultures from thoracentesis and cytology pending Diuresis as able Assessment & Plan (10/15/2024 4:12 PM EDT): Assessment: CT chest 6/03-Tcnlozny-nwdko loculated right hydropneumothorax; the pneumothorax .Interval increasein volume of a low-attenuation, medium-sized left pleural effusion (+)parainfluenza thoracentesis 6/30- drained 320cc Plan: continue to monitor respiratory status duoneb prn continue zosyn for now followup cultures from thoracentesis and cytology pending Diuresis as able Assessment & Plan (10/14/2024 4:45 PM EDT): Assessment: CT chest 6/38-Ahnjffvs-cqhzt loculated right hydropneumothorax; the pneumothorax .Interval increasein volume of a low-attenuation, medium-sized left pleural effusion (+)parainfluenza Plan: continue to monitor respiratory status duoneb prn continue zosyn for now Diuresis as able thoracentesis today Assessment & Plan (10/13/2024 8:43 AM EDT): Assessment: CT chest 6/26-Shbydcbo-bnezk loculated right hydropneumothorax; the pneumothorax .Interval increasein volume of a low-attenuation, medium-sized left pleural effusion (+)parainfluenza Plan: continue to monitor respiratory status duoneb prn continue zosyn, plan for 5 day course Diuresis as able Assessment & Plan (10/12/2024 2:02 PM EDT): Assessment: CT chest 6/78-Ztzjykbl-dolpz loculated right hydropneumothorax; the pneumothorax .Interval increasein volume of a low-attenuation, medium-sized left pleural effusion (+)parainfluenza Plan: continue to monitor respiratory status duoneb prn continue zosyn, plan for 5 day course Diuresis as able Assessment & Plan (10/11/2024 3:40 PM EDT): Assessment: CT chest 6/11-Zurhotks-knmco loculated right hydropneumothorax; the pneumothorax .Interval increasein volume of a low-attenuation, medium-sized left pleural effusion (+)parainfluenza Plan: continue to monitor respiratory status duoneb prn continue zosyn for now check sputum culture Diuresis as able Assessment & Plan (10/10/2024 5:02 PM EDT): Assessment: CT chest 6/67-Ahcdmywa-wkwpt loculated right hydropneumothorax; the pneumothorax .Interval increasein volume of a low-attenuation, medium-sized left pleural effusion Plan: continue to monitor respiratory status duoneb prn RVP positive with parainfluenza will consult thoracentesis team to assess for pleural effusion drainage continue zosyn for now check sputum culture Assessment & Plan (10/09/2024 4:53 PM EDT): Assessment: CT chest 10/0843-Cfdjytln-zsjyq loculated right hydropneumothorax; the pneumothorax .Interval increasein volume of a low-attenuation, medium-sized left pleural effusion Plan: continue to monitor respiratory status albuterol prn RVP positive with parainfluenza will consult thoracentesis team to assess for pleural effusion drainage continue zosyn for now check sputum culture Assessment & Plan (10/08/2024 4:55 PM EDT): Assessment: CT chest 10/0820-Uwjjsdbg-ccdpc loculated right hydropneumothorax; the pneumothorax .Interval increasein volume of a low-attenuation, medium-sized left pleural effusion Plan: continue to monitor respiratory status albuterol prn RVP will review CT chest results with Dr. Tiwari Fluid vbmtagfu12/23/2025 Assessment & Plan (10/29/2024 12:50 PM EDT): [...] dose weigh daily Current use of steroid btkmnxtuig23/10/2025Physical jbruzrweqdmqyn10/10/2025 Dzwmgoml93/10/2025Impaired functional mobility, balance, gait, and endurance 09/24/20243741Dnokr25/08/2025 Assessment & Plan (09/28/2024 4:22 PM EDT): [...] (09/25/2024 12:55 PM EDT): Nausea and vomiting (68), abdomen distended - pt refused NG placement N/V improved Plan: - advance diet to GI soft cautiously Assessment & Plan (09/24/2024 11:45 AM EDT): Nausea and vomiting (6/8), abdomen distended - pt refused NG placement N/V improved Plan: - advance diet to FLD Assessment & Plan (09/23/2024 11:48 AM EDT): Nausea and vomiting (68), abdomen distended - pt refused NG placement, made NPO Plan: - cautiously advance diet, start w CLD Assessment & Plan (09/22/2024 12:42 PM EDT): Nausea and vomiting today (09/22) Abdomen distended Plan: - KUB - NPO - if continues to have vomiting, will place NG. Insulin dose hmnkxkn3409/20/2024Steroid-induced uzbxcclntaewe02/04/2025History of jegdevclvhu16/04/2025Metabolic hylgpvqk43/31/2025ute renal ucohssl3809/14/2024 Glnorlljsxdapeaab98/30/2025 Assessment & Plan (01/13/2025 1:03 PM EDT): Current immunosuppression Tacrolimus 3.5 mg BID Tacrolimus level: 9.2 PLAN: - continue FK 3.5mg BID - Tacrolimus level daily Assessment & Plan (01/12/2025 1:35 PM EDT): Current immunosuppression Tacrolimus 3.5 mg BID Tacrolimus level: 10.6 PLAN: - continue FK 3.5mg BID - Tacrolimus level daily Assessment & Plan (01/11/2025 1:27 PM EDT): Current immunosuppression Tacrolimus 3.5 mg BID Tacrolimus level: 8.9 PLAN: - continue FK 3.5mg BID - Tacrolimus level daily Assessment & Plan (01/10/2025 2:22 PM EDT): Current immunosuppression Tacrolimus 3.5 mg BID Tacrolimus level: 9.7 PLAN: - continue FK 3.5mg BID - Tacrolimus level daily Assessment & Plan (01/09/2025 2:11 PM EDT): Current immunosuppression Tacrolimus 4 mg BID Tacrolimus level: 10.2 PLAN: - decrease FK 3.5mg - Tacrolimus level daily Assessment & Plan (01/08/2025 1:43 PM EDT): Current immunosuppression Tacrolimus 4 mg BID Tacrolimus level: 7.0 PLAN: - Continue Tacrolimus 4mg BID - Tacrolimus level daily Assessment & Plan (01/07/2025 2:14 PM EDT): Current immunosuppression Tacrolimus 4 mg BID Tacrolimus level: 5.5 PLAN: - Continue Tacrolimus 4mg BID - Tacrolimus level daily Assessment & Plan (01/06/2025 7:43 PM EDT): Current immunosuppression Tacrolimus 4 mg BID Tacrolimus level: 7.5 PLAN: - Continue Tacrolimus 4mg BID - Tacrolimus level daily Assessment & Plan (01/03/2025 12:50 PM EDT): Current immunosuppression Tacrolimus 3 mg BID (increased 12/30) Tacrolimus level: 6.4 PLAN: - Continue Tacrolimus 3 mg BID - Tacrolimus level daily Assessment & Plan (01/02/2025 2:06 PM EDT): Current immunosuppression Tacrolimus 3 mg BID (increased 12/30) Tacrolimus level: 6.2 PLAN: - Will discuss Tacrolimus dose with staff - Tacrolimus level daily Assessment & Plan (01/01/2025 2:36 PM EDT): Current immunosuppression Tacrolimus 3 mg BID (increased 12/30) Tacrolimus level: 7.8 PLAN: - Continue Tacrolimus 3 mg BID - Tacrolimus level daily Assessment & Plan (12/31/2024 12:02 PM EDT): Current immunosuppression Tacrolimus 3 mg BID (increased 9/15) Tacrolimus level: 4.6 PLAN: - Continue Tacrolimus 3 mg BID - Tacrolimus level daily Assessment & Plan (12/30/2024 12:54 PM EDT): Current immunosuppression Tacrolimus 2 mg BID oral liquid Tacrolimus level: 3.7 PLAN: - Will discuss Tacrolimus dose with staff - Tacrolimus level daily Assessment & Plan (12/27/2024 1:21 PM EDT): Current immunosuppression Tacrolimus 1 mg BID Tacrolimus level: 4.3 PLAN: - Continue Tacrolimus 1 mg BID - Tacrolimus level daily Assessment & Plan (12/26/2024 3:45 PM EDT): Current immunosuppression Tacrolimus 1 mg BID Tacrolimus level: 3.2 Plan: Continue current Tacrolimus dose Tacrolimus level daily Assessment & Plan (12/23/2024 12:44 PM EDT): Current immunosuppression Tacrolimus 1.5 mg BID Tacrolimus level: 4.9 Plan: Continue current Tacrolimus dose Tacrolimus level daily Assessment & Plan (12/20/2024 11:16 AM EDT): Current immunosuppression Tacrolimus 2 mg BID Tacrolimus level: pending Plan: Will discuss Tacrolimus dose with staff once level results Tacrolimus level daily Assessment & Plan (12/19/2024 4:49 PM EDT): Current immunosuppression Tacrolimus 2 mg BID Tacrolimus level: 3.6 Plan: Continue current Tacrolimus dose Tacrolimus level daily Assessment & Plan (12/18/2024 12:03 PM EDT): Current immunosuppression Tacrolimus 1 mg BID Tacrolimus level: 2.3 Plan: Will discuss Tacrolimus dose with staff Tacrolimus level daily Assessment & Plan (12/12/2024 1:54 PM EDT): Current immunosuppression Tacrolimus 5mg BID (increased from 4 mg on 12/07) Tacrolimus level: 8.1 Plan: Continue current Tacrolimus dose Tacrolimus level daily Assessment & Plan (12/11/2024 1:06 PM EDT): Current immunosuppression Tacrolimus 5mg BID (increased from 4 mg on 12/07) Tacrolimus level: 5.3 Plan: Continue current Tacrolimus dose Tacrolimus level daily Assessment & Plan (12/10/2024 12:51 PM EDT): Current immunosuppression Tacrolimus 5mg BID (increased from 4 mg on 12/07) Tacrolimus level: 5.7 Plan: Continue current Tacrolimus dose Tacrolimus level daily Assessment & Plan (12/09/2024 1:59 PM EDT): Current immunosuppression Tacrolimus 5mg BID (increased from 4 mg on 12/07) Tacrolimus level: pending Plan: Will discuss Tacrolimus dose with staff once level results Tacrolimus level daily Assessment & Plan (12/08/2024 1:03 PM EDT): Current immunosuppression Tacrolimus 5mg BID (increased from 4 mg on 12/07) Tacrolimus level: 6.7 Plan: Continue current immunosuppression Tacrolimus level daily Assessment & Plan (12/07/2024 11:57 AM EDT): Current immunosuppression Tacrolimus 4mg BID Tacrolimus level: 4.7 Plan: Will discuss Tacrolimus dose with staff Tacrolimus level daily Assessment & Plan (12/06/2024 3:18 PM EDT): Current immunosuppression Tacrolimus 4mg BID Tacrolimus level: 7.7 Plan: Continue current Tacrolimus dose Tacrolimus level daily Assessment & Plan (12/05/2024 2:25 PM EDT): Current immunosuppression Tacrolimus 4mg BID Tacrolimus level: 5.7 Plan: Continue current Tacrolimus dose Tacrolimus level daily Assessment & Plan (12/04/2024 3:05 PM EDT): Current immunosuppression Tacrolimus 4mg BID Tacrolimus level: 4.7 Plan Continue current Tacrolimus dose Tacrolimus level daily Assessment & Plan (12/03/2024 1:30 PM EDT): Current immunosuppression Tacrolimus 3mg BID Tacrolimus level: 4.4 Plan Increase Tacrolimus to 4 mg BID Tacrolimus level daily Assessment & Plan (12/02/2024 11:56 AM EDT): Current immunosuppression Tacrolimus 3mg BID Tacrolimus level: 5.3 Plan Will discuss Tacrolimus dose with staff Tacrolimus level daily Assessment & Plan (11/29/2024 1:51 PM EDT): Current immunosuppression Tacrolimus 3mg BID Tacrolimus level: not a true trough Plan Continue FK 3mg BID Tacrolimus level daily Assessment & Plan (11/28/2024 11:35 AM EDT): Current immunosuppression Tacrolimus 4mg BID Tacrolimus level: 10 Plan Decrease FK 3mg BID Tacrolimus level daily Assessment & Plan (11/27/2024 4:40 PM EDT): Current immunosuppression Tacrolimus 5mg BID (restarted 11/25, increased from 4mg on 11/26) Tacrolimus level: pending Plan Discuss FK dosing w staff and adjust as needed Tacrolimus level daily Assessment & Plan (11/26/2024 12:15 PM EDT): Current immunosuppression Tacrolimus 4 mg BID (restarted 11/25) Tacrolimus level: pending Plan Will follow-up on FK level and adjust the dose as needed Tacrolimus level daily Assessment & Plan (11/25/2024 1:16 PM EDT): Current immunosuppression Tacrolimus on hold due to supratherapeutic level yesterday Tacrolimus level: 4.2 Plan Discuss FK dosing w staff and resume per recs Tacrolimus level daily Assessment & Plan (11/24/2024 1:51 PM EDT): Current immunosuppression Tacrolimus on hold due to supratherapeutic level yesterday Tacrolimus level: 9.1 Plan Continue to hold daptomycin per Dr. Marques Tacrolimus level daily Assessment & Plan (11/23/2024 1:32 PM EDT): Current immunosuppression Tacrolimus 5+5 Tacrolimus level: 15.8 Plan Hold tacrolimus until level results tomorrow Tacrolimus level daily Assessment & Plan (10/29/2024 12:49 PM EDT): [...] - FK level daily Complication of transplanted liver09/11/2024Electrolyte and fluid disorder 09/11/2024Status post liver ebvucwpvxhctkkm44/26/2025 Assessment & Plan (01/13/2025 1:03 PM EDT): 09/09/24 DCD OLT (pumped with organox), piggyback transplant, PV main to main, [id number], duct to duct (running), transdiaphragmatic drainage of right hepatic hydrothorax, takedown of omental adhesions (>30mins) ERCP (10/15) filling defects c/w stones and sludge. Single moderate biliary stricture found in commonhepatic duct. Bile leak found eminating from the donor cystic duct remnant, appeared contained. Biliary tree swept and pus and debris found. Large stone proximal to the stenosis could not be removed. (10/17) Imaging guided drain placement into GB fossa for contained bile leak. Culture (+) VRE treatedw daptomycin. Removed 11/27 ERCP (11/13) main bile duct stent noted. Sludge and stones swept with complete removal. No filling defects remained. Pt admitted w normal LFTs CT abd/pelvis w IV contrast (11/22) interval decrease in GB fossa fluid collection, edema, ascites and decreased loculated component of peritoneal rim along lateral right mid abdomen. Stable cholecystostomy tube and internal biliary stent S/p US-guided aspiration of right abdominal fluid collection 11/25 (cultures negative so far) S/p Zosyn empirically (11/24-11/27) ERCP 12/19: - A single moderate biliary stricture was found in the upper third of the main bile duct above the metal stent. The stricture was post-surgical. - Common bile duct strictute was successfully dilated. Swept CBD and cleared debris/sludge. - One temporary stent was placed into the common bile duct traversing the stricture into RHD. Imaging guided paracentesis of fluid collection 12/23 - 320 mL of straw-colored ascites fluid removed Cultures NGTD BC 01/06 NGTD (sent due to up trending WBC) LFT's WNL PLAN: - CMP daily - Continue ursodiol - f/u on blood cultures - PT/OT - PM&R consulted Assessment & Plan (01/12/2025 1:33 PM EDT): 09/09/24 DCD OLT (pumped with organox), piggyback transplant, PV main to main, [id number], duct to duct (running), transdiaphragmatic drainage of right hepatic hydrothorax, takedown of omental adhesions (>30mins) ERCP (10/15) filling defects c/w stones and sludge. Single moderate biliary stricture found in commonhepatic duct. Bile leak found eminating from the donor cystic duct remnant, appeared contained. Biliary tree swept and pus and debris found. Large stone proximal to the stenosis could not be removed. (10/17) Imaging guided drain placement into GB fossa for contained bile leak. Culture (+) VRE treatedw daptomycin. Removed 11/27 ERCP (11/13) main bile duct stent noted. Sludge and stones swept with complete removal. No filling defects remained. Pt admitted w normal LFTs CT abd/pelvis w IV contrast (11/22) interval decrease in GB fossa fluid collection, edema, ascites and decreased loculated component of peritoneal rim along lateral right mid abdomen. Stable cholecystostomy tube and internal biliary stent S/p US-guided aspiration of right abdominal fluid collection 11/25 (cultures negative so far) S/p Zosyn empirically (11/24-11/27) ERCP 12/19: - A single moderate biliary stricture was found in the upper third of the main bile duct above the metal stent. The stricture was post-surgical. - Common bile duct strictute was successfully dilated. Swept CBD and cleared debris/sludge. - One temporary stent was placed into the common bile duct traversing the stricture into RHD. Imaging guided paracentesis of fluid collection 12/23 - 320 mL of straw-colored ascites fluid removed Cultures NGTD BC 01/06 NGTD (sent due to up trending WBC) LFT's WNL PLAN: - CMP daily - Continue ursodiol - f/u on blood cultures - PT/OT - PM&R consulted Assessment & Plan (01/11/2025 1:07 PM EDT): 09/09/24 DCD OLT (pumped with organox), piggyback transplant, PV main to main, [id number], duct to duct (running), transdiaphragmatic drainage of right hepatic hydrothorax, takedown of omental adhesions (>30mins) ERCP (10/15) filling defects c/w stones and sludge. Single moderate biliary stricture found in commonhepatic duct. Bile leak found eminating from the donor cystic duct remnant, appeared contained. Biliary tree swept and pus and debris found. Large stone proximal to the stenosis could not be removed. (10/17) Imaging guided drain placement into GB fossa for contained bile leak. Culture (+) VRE treatedw daptomycin. Removed 11/27 ERCP (11/13) main bile duct stent noted. Sludge and stones swept with complete removal. No filling defects remained. Pt admitted w normal LFTs CT abd/pelvis w IV contrast (11/22) interval decrease in GB fossa fluid collection, edema, ascites and decreased loculated component of peritoneal rim along lateral right mid abdomen. Stable cholecystostomy tube and internal biliary stent S/p US-guided aspiration of right abdominal fluid collection 11/25 (cultures negative so far) S/p Zosyn empirically (11/24-11/27) ERCP 12/19: - A single moderate biliary stricture was found in the upper third of the main bile duct above the metal stent. The stricture was post-surgical. - Common bile duct strictute was successfully dilated. Swept CBD and cleared debris/sludge. - One temporary stent was placed into the common bile duct traversing the stricture into RHD. Imaging guided paracentesis of fluid collection 12/23 - 320 mL of straw-colored ascites fluid removed Cultures NGTD BC 01/06 NGTD (sent due to up trending WBC) LFT's WNL PLAN: - CMP daily - Continue ursodiol - f/u on blood cultures - PT/OT - PM&R consulted Assessment & Plan (01/10/2025 2:20 PM EDT): 09/09/24 DCD OLT (pumped with organox), piggyback transplant, PV main to main, [id number], duct to duct (running), transdiaphragmatic drainage of right hepatic hydrothorax, takedown of omental adhesions (>30mins) ERCP (10/15) filling defects c/w stones and sludge. Single moderate biliary stricture found in commonhepatic duct. Bile leak found eminating from the donor cystic duct remnant, appeared contained. Biliary tree swept and pus and debris found. Large stone proximal to the stenosis could not be removed. (10/17) Imaging guided drain placement into GB fossa for contained bile leak. Culture (+) VRE treatedw daptomycin. Removed 11/27 ERCP (11/13) main bile duct stent noted. Sludge and stones swept with complete removal. No filling defects remained. Pt admitted w normal LFTs CT abd/pelvis w IV contrast (11/22) interval decrease in GB fossa fluid collection, edema, ascites and decreased loculated component of peritoneal rim along lateral right mid abdomen. Stable cholecystostomy tube and internal biliary stent S/p US-guided aspiration of right abdominal fluid collection 11/25 (cultures negative so far) S/p Zosyn empirically (11/24-11/27) ERCP 12/19: - A single moderate biliary stricture was found in the upper third of the main bile duct above the metal stent. The stricture was post-surgical. - Common bile duct strictute was successfully dilated. Swept CBD and cleared debris/sludge. - One temporary stent was placed into the common bile duct traversing the stricture into RHD. Imaging guided paracentesis of fluid collection 12/23 - 320 mL of straw-colored ascites fluid removed Cultures NGTD BC 01/06 NGTD (sent due to up trending WBC) LFT's WNL PLAN: - CMP daily - Continue ursodiol - f/u on blood cultures - PT/OT - PM&R consulted Assessment & Plan (01/09/2025 2:08 PM EDT): 09/09/24 DCD OLT (pumped with organox), piggyback transplant, PV main to main, [id number], duct to duct (running), transdiaphragmatic drainage of right hepatic hydrothorax, takedown of omental adhesions (>30mins) ERCP (10/15) filling defects c/w stones and sludge. Single moderate biliary stricture found in commonhepatic duct. Bile leak found eminating from the donor cystic duct remnant, appeared contained. Biliary tree swept and pus and debris found. Large stone proximal to the stenosis could not be removed. (10/17) Imaging guided drain placement into GB fossa for contained bile leak. Culture (+) VRE treatedw daptomycin. Removed 11/27 ERCP (11/13) main bile duct stent noted. Sludge and stones swept with complete removal. No filling defects remained. Pt admitted w normal LFTs CT abd/pelvis w IV contrast (11/22) interval decrease in GB fossa fluid collection, edema, ascites and decreased loculated component of peritoneal rim along lateral right mid abdomen. Stable cholecystostomy tube and internal biliary stent S/p US-guided aspiration of right abdominal fluid collection 11/25 (cultures negative so far) S/p Zosyn empirically (11/24-11/27) ERCP 12/19: - A single moderate biliary stricture was found in the upper third of the main bile duct above the metal stent. The stricture was post-surgical. - Common bile duct strictute was successfully dilated. Swept CBD and cleared debris/sludge. - One temporary stent was placed into the common bile duct traversing the stricture into RHD. Imaging guided paracentesis of fluid collection 12/23 - 320 mL of straw-colored ascites fluid removed Cultures NGTD BC 01/06 NGTD (sent due to up trending WBC) LFT's WNL PLAN: - CMP daily - Continue ursodiol - f/u on blood cultures - PT/OT - PM&R consulted Assessment & Plan (01/08/2025 1:42 PM EDT): 09/09/24 DCD OLT (pumped with organox), piggyback transplant, PV main to main, [id number], duct to duct (running), transdiaphragmatic drainage of right hepatic hydrothorax, takedown of omental adhesions (>30mins) ERCP (10/15) filling defects c/w stones and sludge. Single moderate biliary stricture found in commonhepatic duct. Bile leak found eminating from the donor cystic duct remnant, appeared contained. Biliary tree swept and pus and debris found. Large stone proximal to the stenosis could not be removed. (10/17) Imaging guided drain placement into GB fossa for contained bile leak. Culture (+) VRE treatedw daptomycin. Removed 11/27 ERCP (11/13) main bile duct stent noted. Sludge and stones swept with complete removal. No filling defects remained. Pt admitted w normal LFTs CT abd/pelvis w IV contrast (11/22) interval decrease in GB fossa fluid collection, edema, ascites and decreased loculated component of peritoneal rim along lateral right mid abdomen. Stable cholecystostomy tube and internal biliary stent S/p US-guided aspiration of right abdominal fluid collection 11/25 (cultures negative so far) S/p Zosyn empirically (11/24-11/27) ERCP 12/19: - A single moderate biliary stricture was found in the upper third of the main bile duct above the metal stent. The stricture was post-surgical. - Common bile duct strictute was successfully dilated. Swept CBD and cleared debris/sludge. - One temporary stent was placed into the common bile duct traversing the stricture into RHD. Imaging guided paracentesis of fluid collection 12/23 - 320 mL of straw-colored ascites fluid removed Cultures NGTD BC 01/06 incubating (sent due to up trending WBC) LFT's WNL PLAN: - CMP daily - Continue ursodiol - f/u on blood cultures - PT/OT - PM&R consulted Assessment & Plan (01/07/2025 2:13 PM EDT): 09/09/24 DCD OLT (pumped with organox), piggyback transplant, PV main to main, [id number], duct to duct (running), transdiaphragmatic drainage of right hepatic hydrothorax, takedown of omental adhesions (>30mins) ERCP (10/15) filling defects c/w stones and sludge. Single moderate biliary stricture found in commonhepatic duct. Bile leak found eminating from the donor cystic duct remnant, appeared contained. Biliary tree swept and pus and debris found. Large stone proximal to the stenosis could not be removed. (10/17) Imaging guided drain placement into GB fossa for contained bile leak. Culture (+) VRE treatedw daptomycin. Removed 11/27 ERCP (11/13) main bile duct stent noted. Sludge and stones swept with complete removal. No filling defects remained. Pt admitted w normal LFTs CT abd/pelvis w IV contrast (11/22) interval decrease in GB fossa fluid collection, edema, ascites and decreased loculated component of peritoneal rim along lateral right mid abdomen. Stable cholecystostomy tube and internal biliary stent S/p US-guided aspiration of right abdominal fluid collection 11/25 (cultures negative so far) S/p Zosyn empirically (11/24-11/27) ERCP 12/19: - A single moderate biliary stricture was found in the upper third of the main bile duct above the metal stent. The stricture was post-surgical. - Common bile duct strictute was successfully dilated. Swept CBD and cleared debris/sludge. - One temporary stent was placed into the common bile duct traversing the stricture into RHD. Imaging guided paracentesis of fluid collection 12/23 - 320 mL of straw-colored ascites fluid removed Cultures NGTD BC 01/06 incubating (sent due to up trending WBC) LFT's WNL PLAN: - CMP daily - Continue ursodiol - f/u on blood cultures - PT/OT - PM&R consulted Assessment & Plan (01/06/2025 7:42 PM EDT): 09/09/24 DCD OLT (pumped with organox), piggyback transplant, PV main to main, [id number], duct to duct (running), transdiaphragmatic drainage of right hepatic hydrothorax, takedown of omental adhesions (>30mins) ERCP (10/15) filling defects c/w stones and sludge. Single moderate biliary stricture found in commonhepatic duct. Bile leak found eminating from the donor cystic duct remnant, appeared contained. Biliary tree swept and pus and debris found. Large stone proximal to the stenosis could not be removed. (10/17) Imaging guided drain placement into GB fossa for contained bile leak. Culture (+) VRE treatedw daptomycin. Removed 11/27 ERCP (11/13) main bile duct stent noted. Sludge and stones swept with complete removal. No filling defects remained. Pt admitted w normal LFTs CT abd/pelvis w IV contrast (11/22) interval decrease in GB fossa fluid collection, edema, ascites and decreased loculated component of peritoneal rim along lateral right mid abdomen. Stable cholecystostomy tube and internal biliary stent S/p US-guided aspiration of right abdominal fluid collection 11/25 (cultures negative so far) S/p Zosyn empirically (11/24-11/27) ERCP 12/19: - A single moderate biliary stricture was found in the upper third of the main bile duct above the metal stent. The stricture was post-surgical. - Common bile duct strictute was successfully dilated. Swept CBD and cleared debris/sludge. - One temporary stent was placed into the common bile duct traversing the stricture into RHD. Imaging guided paracentesis of fluid collection 12/23 - 320 mL of straw-colored ascites fluid removed Cultures NGTD LFT's WNL PLAN: - CMP daily - Continue ursodiol - blood cultures, urine culture ordered - PT/OT - PM&R consulted Assessment & Plan (01/03/2025 12:50 PM EDT): 09/09/24 DCD OLT (pumped with organox), piggyback transplant, PV main to main, [id number], duct to duct (running), transdiaphragmatic drainage of right hepatic hydrothorax, takedown of omental adhesions (>30mins) ERCP (10/15) filling defects c/w stones and sludge. Single moderate biliary stricture found in commonhepatic duct. Bile leak found eminating from the donor cystic duct remnant, appeared contained. Biliary tree swept and pus and debris found. Large stone proximal to the stenosis could not be removed. (10/17) Imaging guided drain placement into GB fossa for contained bile leak. Culture (+) VRE treatedw daptomycin. Removed 11/27 ERCP (11/13) main bile duct stent noted. Sludge and stones swept with complete removal. No filling defects remained. Pt admitted w normal LFTs CT abd/pelvis w IV contrast (11/22) interval decrease in GB fossa fluid collection, edema, ascites and decreased loculated component of peritoneal rim along lateral right mid abdomen. Stable cholecystostomy tube and internal biliary stent S/p US-guided aspiration of right abdominal fluid collection 11/25 (cultures negative so far) S/p Zosyn empirically (11/24-11/27) ERCP 12/19: - A single moderate biliary stricture was found in the upper third of the main bile duct above the metal stent. The stricture was post-surgical. - Common bile duct strictute was successfully dilated. Swept CBD and cleared debris/sludge. - One temporary stent was placed into the common bile duct traversing the stricture into RHD. Imaging guided paracentesis of fluid collection 12/23 - 320 mL of straw-colored ascites fluid removed Cultures NGTD LFT's WNL PLAN: - CMP daily - Continue ursodiol - CT abdomen and pelvis today (abdominal pain) - PT/OT - PM&R consulted Assessment & Plan (01/02/2025 2:06 PM EDT): 09/09/24 DCD OLT (pumped with organox), piggyback transplant, PV main to main, [id number], duct to duct (running), transdiaphragmatic drainage of right hepatic hydrothorax, takedown of omental adhesions (>30mins) ERCP (10/15) filling defects c/w stones and sludge. Single moderate biliary stricture found in commonhepatic duct. Bile leak found eminating from the donor cystic duct remnant, appeared contained. Biliary tree swept and pus and debris found. Large stone proximal to the stenosis could not be removed. (10/17) Imaging guided drain placement into GB fossa for contained bile leak. Culture (+) VRE treatedw daptomycin. Removed 11/27 ERCP (11/13) main bile duct stent noted. Sludge and stones swept with complete removal. No filling defects remained. Pt admitted w normal LFTs CT abd/pelvis w IV contrast (11/22) interval decrease in GB fossa fluid collection, edema, ascites and decreased loculated component of peritoneal rim along lateral right mid abdomen. Stable cholecystostomy tube and internal biliary stent S/p US-guided aspiration of right abdominal fluid collection 11/25 (cultures negative so far) S/p Zosyn empirically (11/24-11/27) ERCP 12/19: - A single moderate biliary stricture was found in the upper third of the main bile duct above the metal stent. The stricture was post-surgical. - Common bile duct strictute was successfully dilated. Swept CBD and cleared debris/sludge. - One temporary stent was placed into the common bile duct traversing the stricture into RHD. Imaging guided paracentesis of fluid collection 12/23 - 320 mL of straw-colored ascites fluid removed Cultures NGTD LFT's WNL PLAN: - CMP daily - Continue ursodiol - PT/OT - PM&R consulted - Zosyn to dc today Assessment & Plan (01/01/2025 2:35 PM EDT): 09/09/24 DCD OLT (pumped with organox), piggyback transplant, PV main to main, [id number], duct to duct (running), transdiaphragmatic drainage of right hepatic hydrothorax, takedown of omental adhesions (>30mins) ERCP (10/15) filling defects c/w stones and sludge. Single moderate biliary stricture found in commonhepatic duct. Bile leak found eminating from the donor cystic duct remnant, appeared contained. Biliary tree swept and pus and debris found. Large stone proximal to the stenosis could not be removed. (10/17) Imaging guided drain placement into GB fossa for contained bile leak. Culture (+) VRE treatedw daptomycin. Removed 11/27 ERCP (11/13) main bile duct stent noted. Sludge and stones swept with complete removal. No filling defects remained. Pt admitted w normal LFTs CT abd/pelvis w IV contrast (11/22) interval decrease in GB fossa fluid collection, edema, ascites and decreased loculated component of peritoneal rim along lateral right mid abdomen. Stable cholecystostomy tube and internal biliary stent S/p US-guided aspiration of right abdominal fluid collection 11/25 (cultures negative so far) S/p Zosyn empirically (11/24-11/27) ERCP 12/19: - A single moderate biliary stricture was found in the upper third of the main bile duct above the metal stent. The stricture was post-surgical. - Common bile duct strictute was successfully dilated. Swept CBD and cleared debris/sludge. - One temporary stent was placed into the common bile duct traversing the stricture into RHD. Imaging guided paracentesis of fluid collection 12/23 - 320 mL of straw-colored ascites fluid removed Cultures NGTD LFT's WNL PLAN: - CMP daily - Continue ursodiol - Follow abdominal cultures - PT/OT - PM&R consult Assessment & Plan (12/31/2024 12:01 PM EDT): 09/09/24 DCD OLT (pumped with organox), piggyback transplant, PV main to main, [id number], duct to duct (running), transdiaphragmatic drainage of right hepatic hydrothorax, takedown of omental adhesions (>30mins) ERCP (10/15) filling defects c/w stones and sludge. Single moderate biliary stricture found in commonhepatic duct. Bile leak found eminating from the donor cystic duct remnant, appeared contained. Biliary tree swept and pus and debris found. Large stone proximal to the stenosis could not be removed. (10/17) Imaging guided drain placement into GB fossa for contained bile leak. Culture (+) VRE treatedw daptomycin. Removed 11/27 ERCP (11/13) main bile duct stent noted. Sludge and stones swept with complete removal. No filling defects remained. Pt admitted w normal LFTs CT abd/pelvis w IV contrast (11/22) interval decrease in GB fossa fluid collection, edema, ascites and decreased loculated component of peritoneal rim along lateral right mid abdomen. Stable cholecystostomy tube and internal biliary stent S/p US-guided aspiration of right abdominal fluid collection 11/25 (cultures negative so far) S/p Zosyn empirically (11/24-11/27) ERCP 12/19: - A single moderate biliary stricture was found in the upper third of the main bile duct above the metal stent. The stricture was post-surgical. - Common bile duct strictute was successfully dilated. Swept CBD and cleared debris/sludge. - One temporary stent was placed into the common bile duct traversing the stricture into RHD. Imaging guided paracentesis of fluid collection 12/23 - 320 mL of straw-colored ascites fluid removed Cultures NGTD LFT's WNL PLAN: - CMP daily - Continue ursodiol - Follow abdominal cultures - PT/OT - PMNR consult Assessment & Plan (12/30/2024 12:55 PM EDT): 09/09/24 DCD OLT (pumped with organox), piggyback transplant, PV main to main, [id number], duct to duct (running), transdiaphragmatic drainage of right hepatic hydrothorax, takedown of omental adhesions (>30mins) ERCP (10/15) filling defects c/w stones and sludge. Single moderate biliary stricture found in commonhepatic duct. Bile leak found eminating from the donor cystic duct remnant, appeared contained. Biliary tree swept and pus and debris found. Large stone proximal to the stenosis could not be removed. (10/17) Imaging guided drain placement into GB fossa for contained bile leak. Culture (+) VRE treatedw daptomycin. Removed 11/27 ERCP (11/13) main bile duct stent noted. Sludge and stones swept with complete removal. No filling defects remained. Pt admitted w normal LFTs CT abd/pelvis w IV contrast (11/22) interval decrease in GB fossa fluid collection, edema, ascites and decreased loculated component of peritoneal rim along lateral right mid abdomen. Stable cholecystostomy tube and internal biliary stent S/p US-guided aspiration of right abdominal fluid collection 11/25 (cultures negative so far) S/p Zosyn empirically (11/24-11/27) ERCP 12/19: - A single moderate biliary stricture was found in the upper third of the main bile duct above the metal stent. The stricture was post-surgical. - Common bile duct strictute was successfully dilated. Swept CBD and cleared debris/sludge. - One temporary stent was placed into the common bile duct traversing the stricture into RHD. Imaging guided paracentesis of fluid collection 12/23 - 320 mL of straw-colored ascites fluid removed Cultures NGTD LFT's WNL PLAN: - CMP daily - Continue ursodiol - Follow abdominal cultures - PT/OT - PMNR consult Assessment & Plan (12/27/2024 1:27 PM EDT): 09/09/24 DCD OLT (pumped with organox), piggyback transplant, PV main to main, [id number], duct to duct (running), transdiaphragmatic drainage of right hepatic hydrothorax, takedown of omental adhesions (>30mins) ERCP (10/15) filling defects c/w stones and sludge. Single moderate biliary stricture found in commonhepatic duct. Bile leak found eminating from the donor cystic duct remnant, appeared contained. Biliary tree swept and pus and debris found. Large stone proximal to the stenosis could not be removed. (10/17) Imaging guided drain placement into GB fossa for contained bile leak. Culture (+) VRE treatedw daptomycin. Removed 11/27 ERCP (11/13) main bile duct stent noted. Sludge and stones swept with complete removal. No filling defects remained. Pt admitted w normal LFTs CT abd/pelvis w IV contrast (11/22) interval decrease in GB fossa fluid collection, edema, ascites and decreased loculated component of peritoneal rim along lateral right mid abdomen. Stable cholecystostomy tube and internal biliary stent S/p US-guided aspiration of right abdominal fluid collection 11/25 (cultures negative so far) S/p Zosyn empirically (11/24-11/27) ERCP 12/19: - A single moderate biliary stricture was found in the upper third of the main bile duct above the metal stent. The stricture was post-surgical. - Common bile duct strictute was successfully dilated. Swept CBD and cleared debris/sludge. - One temporary stent was placed into the common bile duct traversing the stricture into RHD. Imaging guided paracentesis of fluid collection 12/23 - 320 mL of straw-colored ascites fluid removed Cultures NGTD PLAN: - CMP daily - Continue ursodiol - Follow abdominal cultures - Transfer to [facility] Assessment & Plan (12/26/2024 3:45 PM EDT): 09/09/24 DCD OLT (pumped with organox), piggyback transplant, PV main to main, [id number], duct to duct (running), transdiaphragmatic drainage of right hepatic hydrothorax, takedown of omental adhesions (>30mins) ERCP (10/15) filling defects c/w stones and sludge. Single moderate biliary stricture found in commonhepatic duct. Bile leak found eminating from the donor cystic duct remnant, appeared contained. Biliary tree swept and pus and debris found. Large stone proximal to the stenosis could not be removed. (10/17) Imaging guided drain placement into GB fossa for contained bile leak. Culture (+) VRE treatedw daptomycin. Removed 11/27 ERCP (11/13) main bile duct stent noted. Sludge and stones swept with complete removal. No filling defects remained. Pt admitted w normal LFTs CT abd/pelvis w IV contrast (11/22) interval decrease in GB fossa fluid collection, edema, ascites and decreased loculated component of peritoneal rim along lateral right mid abdomen. Stable cholecystostomy tube and internal biliary stent S/p US-guided aspiration of right abdominal fluid collection 11/25 (cultures negative so far) s/p Zosyn empirically (11/24-11/27) ERCP 12/19: - A single moderate biliary stricture was found in the upper third of the main bile duct above the metal stent. The stricture was post-surgical. - Common bile duct strictute was successfully dilated. Swept CBD and cleared debris/sludge. - One temporary stent was placed into the common bile duct traversing the stricture into RHD. Imaging guided paracentesis of fluid collection 12/23 - 320 mL of straw-colored ascites fluid removed Cultures pending Plan: - daily LFTs - cont PPI and Pepcid - continue ursodiol - Continue post-pyloric tube feeds as able - Follow abdominal cultures Assessment & Plan (12/23/2024 12:44 PM EDT): 09/09/24 DCD OLT (pumped with organox), piggyback transplant, PV main to main, [id number], duct to duct (running), transdiaphragmatic drainage of right hepatic hydrothorax, takedown of omental adhesions (>30mins) ERCP (10/15) filling defects c/w stones and sludge. Single moderate biliary stricture found in commonhepatic duct. Bile leak found eminating from the donor cystic duct remnant, appeared contained. Biliary tree swept and pus and debris found. Large stone proximal to the stenosis could not be removed. (10/17) Imaging guided drain placement into GB fossa for contained bile leak. Culture (+) VRE treatedw daptomycin. Removed 11/27 ERCP (11/13) main bile duct stent noted. Sludge and stones swept with complete removal. No filling defects remained. Pt admitted w normal LFTs CT abd/pelvis w IV contrast (11/22) interval decrease in GB fossa fluid collection, edema, ascites and decreased loculated component of peritoneal rim along lateral right mid abdomen. Stable cholecystostomy tube and internal biliary stent S/p US-guided aspiration of right abdominal fluid collection 11/25 (cultures negative so far) s/p Zosyn empirically (11/24-11/27) ERCP 12/19: - A single moderate biliary stricture was found in the upper third of the main bile duct above the metal stent. The stricture was post-surgical. - Common bile duct strictute was successfully dilated. Swept CBD and cleared debris/sludge. - One temporary stent was placed into the common bile duct traversing the stricture into RHD. Imaging guided paracentesis of fluid collection 12/23 - 320 mL of straw-colored ascites fluid removed Cultures pending Plan: - daily LFTs - cont PPI and Pepcid - hold midodrine and monitor BP off - continue ursodiol - Continue post-pyloric tube feeds as able - Ok to extubate - Follow abdominal cultures Assessment & Plan (12/20/2024 11:17 AM EDT): 09/09/24 DCD OLT (pumped with organox), piggyback transplant, PV main to main, [id number], duct to duct (running), transdiaphragmatic drainage of right hepatic hydrothorax, takedown of omental adhesions (>30mins) ERCP (10/15) filling defects c/w stones and sludge. Single moderate biliary stricture found in commonhepatic duct. Bile leak found eminating from the donor cystic duct remnant, appeared contained. Biliary tree swept and pus and debris found. Large stone proximal to the stenosis could not be removed. (10/17) Imaging guided drain placement into GB fossa for contained bile leak. Culture (+) VRE treatedw daptomycin. Removed 11/27 ERCP (11/13) main bile duct stent noted. Sludge and stones swept with complete removal. No filling defects remained. Pt admitted w normal LFTs CT abd/pelvis w IV contrast (11/22) interval decrease in GB fossa fluid collection, edema, ascites and decreased loculated component of peritoneal rim along lateral right mid abdomen. Stable cholecystostomy tube and internal biliary stent S/p US-guided aspiration of right abdominal fluid collection 11/25 (cultures negative so far) s/p Zosyn empirically (11/24-11/27) ERCP 12/19: - A single moderate biliary stricture was found in the upper third of the main bile duct above the metal stent. The stricture was post-surgical. - Common bile duct strictute was successfully dilated. Swept CBD and cleared debris/sludge. - One temporary stent was placed into the common bile duct traversing the stricture into RHD. Plan: - daily LFTs - cont PPI and Pepcid - hold midodrine and monitor BP off - continue ursodiol - Continue post-pyloric tube feeds as able - Ok to extubate Assessment & Plan (12/19/2024 4:49 PM EDT): 09/09/24 DCD OLT (pumped with organox), piggyback transplant, PV main to main, [id number], duct to duct (running), transdiaphragmatic drainage of right hepatic hydrothorax, takedown of omental adhesions (>30mins) ERCP (10/15) filling defects c/w stones and sludge. Single moderate biliary stricture found in commonhepatic duct. Bile leak found eminating from the donor cystic duct remnant, appeared contained. Biliary tree swept and pus and debris found. Large stone proximal to the stenosis could not be removed. (10/17) Imaging guided drain placement into GB fossa for contained bile leak. Culture (+) VRE treatedw daptomycin. Removed 11/27 ERCP (11/13) main bile duct stent noted. Sludge and stones swept with complete removal. No filling defects remained. Pt admitted w normal LFTs CT abd/pelvis w IV contrast (11/22) interval decrease in GB fossa fluid collection, edema, ascites and decreased loculated component of peritoneal rim along lateral right mid abdomen. Stable cholecystostomy tube and internal biliary stent S/p US-guided aspiration of right abdominal fluid collection 11/25 (cultures negative so far) s/p Zosyn empirically (11/24-11/27) ERCP 12/19: - A single moderate biliary stricture was found in the upper third of the main bile duct above the metal stent. The stricture was post-surgical. - Common bile duct strictute was successfully dilated. Swept CBD and cleared debris/sludge. - One temporary stent was placed into the common bile duct traversing the stricture into RHD. Plan: - daily LFTs - cont PPI and Pepcid - hold midodrine and monitor BP off - continue ursodiol - Continue post-pyloric tube feeds as able Assessment & Plan (12/18/2024 12:03 PM EDT): 09/09/24 DCD OLT (pumped with organox), piggyback transplant, PV main to main, [id number], duct to duct (running), transdiaphragmatic drainage of right hepatic hydrothorax, takedown of omental adhesions (>30mins) ERCP (10/15) filling defects c/w stones and sludge. Single moderate biliary stricture found in commonhepatic duct. Bile leak found eminating from the donor cystic duct remnant, appeared contained. Biliary tree swept and pus and debris found. Large stone proximal to the stenosis could not be removed. (10/17) Imaging guided drain placement into GB fossa for contained bile leak. Culture (+) VRE treatedw daptomycin. Removed 11/27 ERCP (11/13) main bile duct stent noted. Sludge and stones swept with complete removal. No filling defects remained. Pt admitted w normal LFTs CT abd/pelvis w IV contrast (11/22) interval decrease in GB fossa fluid collection, edema, ascites and decreased loculated component of peritoneal rim along lateral right mid abdomen. Stable cholecystostomy tube and internal biliary stent S/p US-guided aspiration of right abdominal fluid collection 11/25 (cultures negative so far) s/p Zosyn empirically (11/24-11/27) Plan: - daily LFTs - cont PPI and Pepcid - hold midodrine and monitor BP off - continue ursodiol - Continue post-pyloric tube feeds as able - Plan for ERCP tomorrow given bacteremia (see assessment and plan for enterococcus faecalis infection) Assessment & Plan (12/12/2024 1:55 PM EDT): 09/09/24 DCD OLT (pumped with organox), piggyback transplant, PV main to main, [id number], duct to duct (running), transdiaphragmatic drainage of right hepatic hydrothorax, takedown of omental adhesions (>30mins) ERCP (10/15) filling defects c/w stones and sludge. Single moderate biliary stricture found in commonhepatic duct. Bile leak found eminating from the donor cystic duct remnant, appeared contained. Biliary tree swept and pus and debris found. Large stone proximal to the stenosis could not be removed. (10/17) Imaging guided drain placement into GB fossa for contained bile leak. Culture (+) VRE treatedw daptomycin. Removed 11/27 ERCP (11/13) main bile duct stent noted. Sludge and stones swept with complete removal. No filling defects remained. Pt admitted w normal LFTs CT abd/pelvis w IV contrast (11/22) interval decrease in GB fossa fluid collection, edema, ascites and decreased loculated component of peritoneal rim along lateral right mid abdomen. Stable cholecystostomy tube and internal biliary stent S/p US-guided aspiration of right abdominal fluid collection 11/25 (cultures negative so far) s/p Zosyn empirically (11/24-11/27) Plan: - daily LFTs - cont PPI and Pepcid - hold midodrine and monitor BP off - continue ursodiol - Would recommend post-pyloric corpak placement for supplemental nutrition Assessment & Plan (12/11/2024 1:05 PM EDT): 09/09/24 DCD OLT (pumped with organox), piggyback transplant, PV main to main, [id number], duct to duct (running), transdiaphragmatic drainage of right hepatic hydrothorax, takedown of omental adhesions (>30mins) ERCP (10/15) filling defects c/w stones and sludge. Single moderate biliary stricture found in commonhepatic duct. Bile leak found eminating from the donor cystic duct remnant, appeared contained. Biliary tree swept and pus and debris found. Large stone proximal to the stenosis could not be removed. (10/17) Imaging guided drain placement into GB fossa for contained bile leak. Culture (+) VRE treatedw daptomycin. Removed 11/27 ERCP (11/13) main bile duct stent noted. Sludge and stones swept with complete removal. No filling defects remained. Pt admitted w normal LFTs CT abd/pelvis w IV contrast (11/22) interval decrease in GB fossa fluid collection, edema, ascites and decreased loculated component of peritoneal rim along lateral right mid abdomen. Stable cholecystostomy tube and internal biliary stent S/p US-guided aspiration of right abdominal fluid collection 11/25 (cultures negative so far) s/p Zosyn empirically (11/24-11/27) Plan: - daily LFTs - cont PPI and Pepcid - hold midodrine and monitor BP off - continue ursodiol Assessment & Plan (12/10/2024 12:50 PM EDT): 09/09/24 DCD OLT (pumped with organox), piggyback transplant, PV main to main, [id number], duct to duct (running), transdiaphragmatic drainage of right hepatic hydrothorax, takedown of omental adhesions (>30mins) ERCP (10/15) filling defects c/w stones and sludge. Single moderate biliary stricture found in commonhepatic duct. Bile leak found eminating from the donor cystic duct remnant, appeared contained. Biliary tree swept and pus and debris found. Large stone proximal to the stenosis could not be removed. (10/17) Imaging guided drain placement into GB fossa for contained bile leak. Culture (+) VRE treatedw daptomycin. Removed 11/27 ERCP (11/13) main bile duct stent noted. Sludge and stones swept with complete removal. No filling defects remained. Pt admitted w normal LFTs CT abd/pelvis w IV contrast (11/22) interval decrease in GB fossa fluid collection, edema, ascites and decreased loculated component of peritoneal rim along lateral right mid abdomen. Stable cholecystostomy tube and internal biliary stent S/p US-guided aspiration of right abdominal fluid collection 11/25 (cultures negative so far) s/p Zosyn empirically (11/24-11/27) Plan: - daily LFTs - cont PPI and Pepcid - hold midodrine and monitor BP off - continue ursodiol Assessment & Plan (12/09/2024 1:55 PM EDT): 09/09/24 DCD OLT (pumped with organox), piggyback transplant, PV main to main, [id number], duct to duct (running), transdiaphragmatic drainage of right hepatic hydrothorax, takedown of omental adhesions (>30mins) ERCP (10/15) filling defects c/w stones and sludge. Single moderate biliary stricture found in commonhepatic duct. Bile leak found eminating from the donor cystic duct remnant, appeared contained. Biliary tree swept and pus and debris found. Large stone proximal to the stenosis could not be removed. (10/17) Imaging guided drain placement into GB fossa for contained bile leak. Culture (+) VRE treatedw daptomycin. Removed 11/27 ERCP (11/13) main bile duct stent noted. Sludge and stones swept with complete removal. No filling defects remained. Pt admitted w normal LFTs CT abd/pelvis w IV contrast (11/22) interval decrease in GB fossa fluid collection, edema, ascites and decreased loculated component of peritoneal rim along lateral right mid abdomen. Stable cholecystostomy tube and internal biliary stent S/p US-guided aspiration of right abdominal fluid collection 11/25 (cultures negative so far) Plan: - daily LFTs - cont PPI and Pepcid - hold midodrine and monitor BP off - s/p Zosyn empirically (11/24-11/27) - follow-up cultures - continue ursodiol Assessment & Plan (12/08/2024 1:01 PM EDT): 09/09/24 DCD OLT (pumped with organox), piggyback transplant, PV main to main, [id number], duct to duct (running), transdiaphragmatic drainage of right hepatic hydrothorax, takedown of omental adhesions (>30mins) ERCP (10/15) filling defects c/w stones and sludge. Single moderate biliary stricture found in commonhepatic duct. Bile leak found eminating from the donor cystic duct remnant, appeared contained. Biliary tree swept and pus and debris found. Large stone proximal to the stenosis could not be removed. (10/17) Imaging guided drain placement into GB fossa for contained bile leak. Culture (+) VRE treatedw daptomycin. Removed 11/27 ERCP (11/13) main bile duct stent noted. Sludge and stones swept with complete removal. No filling defects remained. Pt admitted w normal LFTs CT abd/pelvis w IV contrast (11/22) interval decrease in GB fossa fluid collection, edema, ascites and decreased loculated component of peritoneal rim along lateral right mid abdomen. Stable cholecystostomy tube and internal biliary stent S/p US-guided aspiration of right abdominal fluid collection 11/25 (cultures negative so far) Plan: - daily LFTs - cont PPI and Pepcid - hold midodrine and monitor BP off - s/p Zosyn empirically (11/24-11/27) - follow-up cultures - continue ursodiol Assessment & Plan (12/07/2024 11:57 AM EDT): 09/09/24 DCD OLT (pumped with organox), piggyback transplant, PV main to main, [id number], duct to duct (running), transdiaphragmatic drainage of right hepatic hydrothorax, takedown of omental adhesions (>30mins) ERCP (10/15) filling defects c/w stones and sludge. Single moderate biliary stricture found in commonhepatic duct. Bile leak found eminating from the donor cystic duct remnant, appeared contained. Biliary tree swept and pus and debris found. Large stone proximal to the stenosis could not be removed. (10/17) Imaging guided drain placement into GB fossa for contained bile leak. Culture (+) VRE treatedw daptomycin. Removed 11/27 ERCP (11/13) main bile duct stent noted. Sludge and stones swept with complete removal. No filling defects remained. Pt admitted w normal LFTs CT abd/pelvis w IV contrast (11/22) interval decrease in GB fossa fluid collection, edema, ascites and decreased loculated component of peritoneal rim along lateral right mid abdomen. Stable cholecystostomy tube and internal biliary stent S/p US-guided aspiration of right abdominal fluid collection 11/25 (cultures negative so far) Plan: - daily LFTs - cont PPI and Pepcid - hold midodrine and monitor BP off - s/p Zosyn empirically (11/24-11/27) - follow-up cultures - continue ursodiol Assessment & Plan (12/06/2024 3:17 PM EDT): 09/09/24 DCD OLT (pumped with organox), piggyback transplant, PV main to main, [id number], duct to duct (running), transdiaphragmatic drainage of right hepatic hydrothorax, takedown of omental adhesions (>30mins) ERCP (10/15) filling defects c/w stones and sludge. Single moderate biliary stricture found in commonhepatic duct. Bile leak found eminating from the donor cystic duct remnant, appeared contained. Biliary tree swept and pus and debris found. Large stone proximal to the stenosis could not be removed. (10/17) Imaging guided drain placement into GB fossa for contained bile leak. Culture (+) VRE treatedw daptomycin. Removed 11/27 ERCP (11/13) main bile duct stent noted. Sludge and stones swept with complete removal. No filling defects remained. Pt admitted w normal LFTs CT abd/pelvis w IV contrast (11/22) interval decrease in GB fossa fluid collection, edema, ascites and decreased loculated component of peritoneal rim along lateral right mid abdomen. Stable cholecystostomy tube and internal biliary stent S/p US-guided aspiration of right abdominal fluid collection 11/25 (cultures negative so far) Plan: - daily LFTs - cont PPI and Pepcid - hold midodrine and monitor BP off - s/p Zosyn empirically (11/24-11/27) - follow-up cultures - continue ursodiol Assessment & Plan (12/05/2024 2:23 PM EDT): 09/09/24 DCD OLT (pumped with organox), piggyback transplant, PV main to main, [id number], duct to duct (running), transdiaphragmatic drainage of right hepatic hydrothorax, takedown of omental adhesions (>30mins) ERCP (10/15) filling defects c/w stones and sludge. Single moderate biliary stricture found in commonhepatic duct. Bile leak found eminating from the donor cystic duct remnant, appeared contained. Biliary tree swept and pus and debris found. Large stone proximal to the stenosis could not be removed. (10/17) Imaging guided drain placement into GB fossa for contained bile leak. Culture (+) VRE treatedw daptomycin. Removed 11/27 ERCP (11/13) main bile duct stent noted. Sludge and stones swept with complete removal. No filling defects remained. Pt admitted w normal LFTs CT abd/pelvis w IV contrast (11/22) interval decrease in GB fossa fluid collection, edema, ascites and decreased loculated component of peritoneal rim along lateral right mid abdomen. Stable cholecystostomy tube and internal biliary stent S/p US-guided aspiration of right abdominal fluid collection 11/25 (cultures negative so far) Plan: - daily LFTs - resumed acyclovir w completed Valcyte - cont PPI and Pepcid - hold midodrine and monitor BP off - s/p Zosyn empirically (11/24-11/27) - follow-up cultures - continue ursodiol Assessment & Plan (12/04/2024 3:04 PM EDT): 09/09/24 DCD OLT (pumped with organox), piggyback transplant, PV main to main, [id number], duct to duct (running), transdiaphragmatic drainage of right hepatic hydrothorax, takedown of omental adhesions (>30mins) ERCP (10/15) filling defects c/w stones and sludge. Single moderate biliary stricture found in commonhepatic duct. Bile leak found eminating from the donor cystic duct remnant, appeared contained. Biliary tree swept and pus and debris found. Large stone proximal to the stenosis could not be removed. (10/17) Imaging guided drain placement into GB fossa for contained bile leak. Culture (+) VRE treatedw daptomycin. Removed 11/27 ERCP (11/13) main bile duct stent noted. Sludge and stones swept with complete removal. No filling defects remained. Pt admitted w normal LFTs CT abd/pelvis w IV contrast (11/22) interval decrease in GB fossa fluid collection, edema, ascites and decreased loculated component of peritoneal rim along lateral right mid abdomen. Stable cholecystostomy tube and internal biliary stent S/p US-guided aspiration of right abdominal fluid collection 11/25 (cultures negative so far) Plan: - daily LFTs - resumed acyclovir w completed Valcyte - cont PPI and Pepcid - hold midodrine and monitor BP off - s/p Zosyn empirically (11/24-11/27) - follow-up cultures - continue ursodiol Assessment & Plan (12/03/2024 1:24 PM EDT): 09/09/24 DCD OLT (pumped with organox), piggyback transplant, PV main to main, [id number], duct to duct (running), transdiaphragmatic drainage of right hepatic hydrothorax, takedown of omental adhesions (>30mins) ERCP (10/15) filling defects c/w stones and sludge. Single moderate biliary stricture found in commonhepatic duct. Bile leak found eminating from the donor cystic duct remnant, appeared contained. Biliary tree swept and pus and debris found. Large stone proximal to the stenosis could not be removed. (10/17) Imaging guided drain placement into GB fossa for contained bile leak. Culture (+) VRE treatedw daptomycin. Removed 11/27 ERCP (11/13) main bile duct stent noted. Sludge and stones swept with complete removal. No filling defects remained. Pt admitted w normal LFTs CT abd/pelvis w IV contrast (11/22) interval decrease in GB fossa fluid collection, edema, ascites and decreased loculated component of peritoneal rim along lateral right mid abdomen. Stable cholecystostomy tube and internal biliary stent S/p US-guided aspiration of right abdominal fluid collection 11/25 (cultures negative so far) Plan: - daily LFTs - resumed acyclovir w completed Valcyte - cont PPI and Pepcid - hold midodrine and monitor BP off - s/p Zosyn empirically (11/24-11/27) - follow-up cultures - continue ursodiol Assessment & Plan (12/02/2024 11:55 AM EDT): 09/09/24 DCD OLT (pumped with organox), piggyback transplant, PV main to main, [id number], duct to duct (running), transdiaphragmatic drainage of right hepatic hydrothorax, takedown of omental adhesions (>30mins) ERCP (10/15) filling defects c/w stones and sludge. Single moderate biliary stricture found in commonhepatic duct. Bile leak found eminating from the donor cystic duct remnant, appeared contained. Biliary tree swept and pus and debris found. Large stone proximal to the stenosis could not be removed. (10/17) Imaging guided drain placement into GB fossa for contained bile leak. Culture (+) VRE treatedw daptomycin. Removed 11/27 ERCP (11/13) main bile duct stent noted. Sludge and stones swept with complete removal. No filling defects remained. Pt admitted w normal LFTs CT abd/pelvis w IV contrast (11/22) interval decrease in GB fossa fluid collection, edema, ascites and decreased loculated component of peritoneal rim along lateral right mid abdomen. Stable cholecystostomy tube and internal biliary stent S/p US-guided aspiration of right abdominal fluid collection 11/25 (cultures negative so far) Plan: - daily LFTs - resumed acyclovir w completed Valcyte - cont PPI and Pepcid - hold midodrine and monitor BP off - s/p Zosyn empirically (11/24-11/27) - follow-up cultures - continue ursodiol Assessment & Plan (11/29/2024 1:51 PM EDT): 09/09/24 DCD OLT (pumped with organox), piggyback transplant, PV main to main, [id number], duct to duct (running), transdiaphragmatic drainage of right hepatic hydrothorax, takedown of omental adhesions (>30mins) ERCP (10/15) filling defects c/w stones and sludge. Single moderate biliary stricture found in commonhepatic duct. Bile leak found eminating from the donor cystic duct remnant, appeared contained. Biliary tree swept and pus and debris found. Large stone proximal to the stenosis could not be removed. (10/17) Imaging guided drain placement into GB fossa for contained bile leak. Culture (+) VRE treatedw daptomycin. Removed 11/27 ERCP (11/13) main bile duct stent noted. Sludge and stones swept with complete removal. No filling defects remained. Pt admitted w normal LFTs CT abd/pelvis w IV contrast (11/22) interval decrease in GB fossa fluid collection, edema, ascites and decreased loculated component of peritoneal rim along lateral right mid abdomen. Stable cholecystostomy tube and internal biliary stent S/p US-guided aspiration of right abdominal fluid collection 11/25 (cultures negative so far) Plan: - daily LFTs - resumed acyclovir w completed Valcyte - cont PPI and Pepcid - hold midodrine and monitor BP off - s/p Zosyn empirically (11/24-11/27) - follow-up cultures - continue ursodiol Assessment & Plan (11/28/2024 11:34 AM EDT): 09/09/24 DCD OLT (pumped with organox), piggyback transplant, PV main to main, [id number], duct to duct (running), transdiaphragmatic drainage of right hepatic hydrothorax, takedown of omental adhesions (>30mins) ERCP (10/15) filling defects c/w stones and sludge. Single moderate biliary stricture found in commonhepatic duct. Bile leak found eminating from the donor cystic duct remnant, appeared contained. Biliary tree swept and pus and debris found. Large stone proximal to the stenosis could not be removed. (10/17) Imaging guided drain placement into GB fossa for contained bile leak. Culture (+) VRE treatedw daptomycin. Removed 11/27 ERCP (11/13) main bile duct stent noted. Sludge and stones swept with complete removal. No filling defects remained. Pt admitted w normal LFTs CT abd/pelvis w IV contrast (11/22) interval decrease in GB fossa fluid collection, edema, ascites and decreased loculated component of peritoneal rim along lateral right mid abdomen. Stable cholecystostomy tube and internal biliary stent S/p US-guided aspiration of right abdominal fluid collection 11/25 (cultures negative so far) Plan: - daily LFTs - resumed acyclovir w completed Valcyte - cont PPI and Pepcid - hold midodrine and monitor BP off - s/p Zosyn empirically (11/24-11/27) - follow-up cultures - continue ursodiol Assessment & Plan (11/27/2024 4:40 PM EDT): 09/09/24 DCD OLT (pumped with organox), piggyback transplant, PV main to main, [id number], duct to duct (running), transdiaphragmatic drainage of right hepatic hydrothorax, takedown of omental adhesions (>30mins) ERCP (10/15) filling defects c/w stones and sludge. Single moderate biliary stricture found in commonhepatic duct. Bile leak found eminating from the donor cystic duct remnant, appeared contained. Biliary tree swept and pus and debris found. Large stone proximal to the stenosis could not be removed. (10/17) Imaging guided drain placement into GB fossa for contained bile leak. Culture (+) VRE treatedw daptomycin ERCP (11/13) main bile duct stent noted. Sludge and stones swept with complete removal. No filling defects remained. Pt admitted w normal LFTs CT abd/pelvis w IV contrast (11/22) interval decrease in GB fossa fluid collection, edema, ascites and decreased loculated component of peritoneal rim along lateral right mid abdomen. Stable cholecystostomy tube and internal biliary stent S/p US-guided aspiration of right abdominal fluid collection 11/25 (cultures negative so far) Plan: - daily LFTs - resumed acyclovir w completed Valcyte - cont PPI and Pepcid - hold midodrine and monitor BP off - stop Zosyn empirically (started 11/24) - follow-up cultures - continue ursodiol Assessment & Plan (11/26/2024 12:17 PM EDT): 09/09/24 DCD OLT (pumped with organox), piggyback transplant, PV main to main, [id number], duct to duct (running), transdiaphragmatic drainage of right hepatic hydrothorax, takedown of omental adhesions (>30mins) ERCP (10/15) filling defects c/w stones and sludge. Single moderate biliary stricture found in commonhepatic duct. Bile leak found eminating from the donor cystic duct remnant, appeared contained. Biliary tree swept and pus and debris found. Large stone proximal to the stenosis could not be removed. (10/17) Imaging guided drain placement into GB fossa for contained bile leak. Culture (+) VRE treatedw daptomycin ERCP (11/13) main bile duct stent noted. Sludge and stones swept with complete removal. No filling defects remained. Pt admitted w normal LFTs CT abd/pelvis w IV contrast (11/22) interval decrease in GB fossa fluid collection, edema, ascites and decreased loculated component of peritoneal rim along lateral right mid abdomen. Stable cholecystostomy tube and internal biliary stent S/p US-guided aspiration of right abdominal fluid collection 11/25 (cultures negative so far) Plan: - daily LFTs - resumed acyclovir w completed Valcyte course - cont PPI and Pepcid - decreased midodrine to 5mg TID and add holding parameters - continue Zosyn empirically (started 11/24) - follow-up cultures - continue ursodiol - start metamucil to help with soft stool Assessment & Plan (11/25/2024 1:14 PM EDT): 09/09/24 DCD OLT (pumped with organox), piggyback transplant, PV main to main, [id number], duct to duct (running), transdiaphragmatic drainage of right hepatic hydrothorax, takedown of omental adhesions (>30mins) ERCP (10/15) filling defects c/w stones and sludge. Single moderate biliary stricture found in commonhepatic duct. Bile leak found eminating from the donor cystic duct remnant, appeared contained. Biliary tree swept and pus and debris found. Large stone proximal to the stenosis could not be removed. (10/17) Imaging guided drain placement into GB fossa for contained bile leak. Culture (+) VRE treatedw daptomycin ERCP (11/13) main bile duct stent noted. Sludge and stones swept with complete removal. No filling defects remained. Pt admitted w normal LFTs CT abd/pelvis w IV contrast (11/22) interval decrease in GB fossa fluid collection, edema, ascites and decreased loculated component of peritoneal rim along lateral right mid abdomen. Stable cholecystostomy tube and internal biliary stent Plan: - daily LFTs - resume acyclovir w completed Valcyte course - cont PPI and Pepcid - decreased midodrine to 5mg TID and add holding parameters -image guided drainage of right lateral peritoneal collection (inferolateral to liver) due to concern for ongoing infection - continue Zosyn empirically (started 11/24) - continue ursodiol Assessment & Plan (11/24/2024 1:47 PM EDT): 09/09/24 DCD OLT (pumped with organox), piggyback transplant, PV main to main, [id number], duct to duct (running), transdiaphragmatic drainage of right hepatic hydrothorax, takedown of omental adhesions (>30mins) ERCP (10/15) filling defects c/w stones and sludge. Single moderate biliary stricture found in commonhepatic duct. Bile leak found eminating from the donor cystic duct remnant, appeared contained. Biliary tree swept and pus and debris found. Large stone proximal to the stenosis could not be removed. (10/17) Imaging guided drain placement into GB fossa for contained bile leak. Culture (+) VRE treatedw daptomycin ERCP (11/13) main bile duct stent noted. Sludge and stones swept with complete removal. No filling defects remained. Pt admitted w normal LFTs CT abd/pelvis w IV contrast (11/22) interval decrease in GB fossa fluid collection, edema, ascites and decreased loculated component of peritoneal rim along lateral right mid abdomen. Stable cholecystostomy tube and internal biliary stent Plan: - daily LFTs - resumedacyclovir now that Valcyte course completed - cont PPI and Pepcid - decrease midodrine to 5mg TID and add holding parameters -image guided drainage of right lateral peritoneal collection (inferolateral to liver) due to concern for ongoing infection -begin Zosyn empirically - continue ursodiol Assessment & Plan (11/22/2024 3:56 PM EDT): 09/09/24 DCD OLT (pumped with organox), piggyback transplant, PV main to main, [id number], duct to duct (running), transdiaphragmatic drainage of right hepatic hydrothorax, takedown of omental adhesions (>30mins) ERCP (10/15) filling defects c/w stones and sludge. Single moderate biliary stricture found in commonhepatic duct. Bile leak found eminating from the donor cystic duct remnant, appeared contained. Biliary tree swept and pus and debris found. Large stone proximal to the stenosis could not be removed. (10/17) Imaging guided drain placement into GB fossa for contained bile leak. Culture (+) VRE treatedw daptomycin ERCP (11/13) main bile duct stent noted. Sludge and stones swept with complete removal. No filling defects remained. Pt admitted w normal LFTs CT abd/pelvis w IV contrast (11/22) interval decrease in GB fossa fluid collection, edema, and ascites. Stable cholecystostomy tube and internal biliary stent Plan: - daily LFTs - resume acyclovir now that Valcyte course completed - cont PPI and Pepcid - decrease midodrine to 5mg TID and add holding parameters - continue ursodiol Assessment & Plan (09/28/2024 4:23 PM EDT): H/o ETOH cirrhosis and newly diagnosed HCC now s/p DCD DCD OLT (pumped with organox), piggyback transplant, PV main to main, [id number], duct to duct (running), transdiaphragmatic drainage of right hepatic hydrothorax 09/09 (Dr. Nava primary) Octreotide started on POD#1 for elevated [place]'s LVUS 09/11: patent hepatic vasculature with appropriately directed flow. Improved resistive indices in the left hepatic artery and anterior right hepatic artery. Persistent elevated resistive indices of the main hepatic artery and the posterior right hepatic artery. LV US 09/17 normalized hepatic arterial waveforms - stop octreotide [...] organox), piggyback transplant, PV main to main, [id number], duct to duct (running), transdiaphragmatic drainage of [...] organox), piggyback transplant, PV main to main, [id number], duct to duct (running), transdiaphragmatic drainage of [...] organox), piggyback transplant, PV main to main, [id number], duct to duct (running), transdiaphragmatic drainage of [...] organox), piggyback transplant, PV main to main, [id number], duct to duct (running), transdiaphragmatic drainage of [...] organox), piggyback transplant, PV main to main, [id number], duct to duct (running), transdiaphragmatic drainage of right hepatic hydrothorax 5 (Dr. Elijah maxwell) Octreotide started on POD#1 [...] organox), piggyback transplant, PV main to main, [id number], duct to duct (running), transdiaphragmatic drainage of [...] organox), piggyback transplant, PV main to main, [id number], duct to duct (running), transdiaphragmatic drainage of [...] organox), piggyback transplant, PV main to main, [id number], duct to duct (running), transdiaphragmatic drainage of right hepatic hydrothorax 09/09 (Dr. Elijah maxwell) Octreotide started on POD#1 for elevated [place] RI's LVUS 28: patent hepatic vasculature with appropriately directed flow. [...] organox), piggyback transplant, PV main to main, [id number], duct to duct (running), transdiaphragmatic drainage of right hepatic hydrothorax 09/09 (Dr. Elijah maxwell) Octreotide started on POD#1 for elevated [place]'s LVUS 5: patent hepatic vasculature with appropriately directed flow. [...] organox), piggyback transplant, PV main to main, [id number], duct to duct (running), transdiaphragmatic drainage of [...] organox), piggyback transplant, PV main to main, [id number], duct to duct (running), transdiaphragmatic drainage of [...] and DANIEL drains - stop octreotide gtt / - acyclovir, Nystatin, and Bactrim for prophylaxis Assessment & Plan (09/16/2024 10:52 AM EDT): H/o ETOH cirrhosis and newly diagnosed HCC now s/p DCD DCD OLT (pumped with organox), piggyback transplant, PV main to main, [id number], duct to duct (running), transdiaphragmatic drainage of right hepatic hydrothorax 09/09 (Dr. Nava primary) Octreotide started on POD#1 for elevated [place] RI's LVUS 5/: patent hepatic vasculature with appropriately directed flow. [...] organox), piggyback transplant, PV main to main, [id number], duct to duct (running), transdiaphragmatic drainage of [...] right arm swelling Acute blood loss anemia (ABLA)09/09/2024 Assessment & Plan (09/28/2024 4:20 PM EDT): [...] Transplant team prior to transfusing Chronic kidney epiidpg4809/06/2024 Assessment & Plan (09/28/2024 4:21 PM EDT): H/o CKD stage 3 with superimposed KATIE Baseline Cr ~1.5 Had KATIE pre-transplant, now with ongoing KATIE post transplant - Cr peaked at 2.83/YPH204 on 09/14, now improving BUN and Cr returned to baseline 6/3 Sodium improved/stabilized Plan: - Nephrology is following, appreciate recommendations. signed off 09/16 - Monitor renal function and electrolyte closely - Monitor urine output Assessment & Plan (09/27/2024 2:27 PM EDT): H/o CKD stage 3 with superimposed KATIE Baseline Cr ~1.5 Had KATIE pre-transplant, now with ongoing KATIE post transplant - Cr peaked at 2.83/STV473 on 09/14, now improving BUN and Cr returned to baseline /3 Sodium improved/stabilized Plan: - Nephrology is following, appreciate recommendations - Monitor renal function and electrolyte closely - Monitor urine output Assessment & Plan (09/26/2024 1:05 PM EDT): H/o CKD stage 3 with superimposed KATIE Baseline Cr ~1.5 Had KATIE pre-transplant, now with ongoing KATIE post transplant - Cr peaked at 2.83/JGK106 on 09/14, now improving BUN and Cr returned to baseline /3 Sodium improved/stabilized Plan: - Nephrology is following, appreciate recommendations - Monitor renal function and electrolyte closely - Monitor urine output Assessment & Plan (09/25/2024 12:55 PM EDT): H/o CKD stage 3 with superimposed KATIE Baseline Cr ~1.5 Had KATIE pre-transplant, now with ongoing KATIE post transplant - Cr peaked at 2.83/WPM929 on 09/14, now improving BUN and Cr returned to baseline 6/3 Sodium improved/stabilized Plan: - Nephrology is following, appreciate recommendations - Monitor renal function and electrolyte closely - Monitor urine output Assessment & Plan (09/24/2024 11:46 AM EDT): H/o CKD stage 3 with superimposed KATIE Baseline Cr ~1.5 Had KATIE pre-transplant, now with ongoing KATIE post transplant - Cr peaked at 2.83/LZU899 on 09/14, now improving BUN and Cr returned to baseline 6/3 Sodium improved/stabilized Plan: - Nephrology is following, appreciate recommendations - Monitor renal function and electrolyte closely - Monitor urine output Assessment & Plan (09/23/2024 11:47 AM EDT): H/o CKD stage 3 with superimposed KATIE Baseline Cr ~1.5 Had KATIE pre-transplant, now with ongoing KATIE post transplant - Cr peaked at 2.83/XJF267 on 09/14, now improving BUN and Cr returned to baseline 6/3 Sodium improved/stabilized Plan: - Nephrology is following, appreciate recommendations - Monitor renal function and electrolyte closely - Monitor urine output Assessment & Plan (09/22/2024 12:41 PM EDT): H/o CKD stage 3 with superimposed KATIE Baseline Cr ~1.5 Had KATIE pre-transplant, now with ongoing KATIE post transplant - Cr peaked at 2.83/PJG587 on 09/14, now improving BUN and Cr returned to baseline 6/3 Sodium improved/stabilized Plan: - Nephrology is following, appreciate recommendations - Monitor renal function and electrolyte closely - Monitor urine output Assessment & Plan (09/21/2024 2:22 PM EDT): H/o CKD stage 3 with superimposed KATIE Baseline Cr ~1.5 Had KATIE pre-transplant, now with ongoing KATIE post transplant - Cr peaked at 2.83/ILH130 on 09/14, now improving BUN and Cr returned to baseline 6/3 Sodium improved/stabilized Plan: - Nephrology is following, appreciate recommendations - Monitor renal function and electrolyte closely - Monitor urine output Assessment & Plan (09/20/2024 6:14 PM EDT): H/o CKD stage 3 with superimposed KATIE Baseline Cr ~1.5 Had KATIE pre-transplant, now with ongoing KATIE post transplant - Cr peaked at 2.83/IEB638 on 09/14, now improving BUN and Cr returned to baseline 6/3 Sodium improved/stabilized Plan: - Nephrology is following, appreciate recommendations - Monitor renal function and electrolyte closely - Monitor urine output Assessment & Plan (09/19/2024 8:46 AM EDT): H/o CKD stage 3 with superimposed KATIE Baseline Cr ~1.5 Had KATIE pre-transplant, now with ongoing KATIE post transplant - Cr peaked at 2.83/HWB082 on 09/14, now improving BUN and Cr returned to baseline 09/17 Sodium improved/stabilized Plan: - Nephrology is following, appreciate recommendations - Monitor renal function and electrolyte closely - Monitor urine output Assessment & Plan (09/18/2024 10:36 AM EDT): H/o CKD stage 3 with superimposed KATIE Baseline Cr ~1.5 Had KATIE pre-transplant, now with ongoing KATIE post transplant - Cr peaked at 2.83/OGU177 on 09/14, now improving BUN and Cr remain elevated Sodium improving Plan: - Nephrology is following, appreciate recommendations - Monitor renal function and electrolyte closely - Monitor urine output Assessment & Plan (09/17/2024 1:33 PM EDT): H/o CKD stage 3 with superimposed KATIE Baseline Cr ~1.5 Had KATIE pre-transplant, now with ongoing KATIE post transplant - Cr peaked at 2.83/UTS887 on 09/14, now improving BUN and Cr remain elevated Sodium improving Plan: - Nephrology is following, appreciate recommendations - Monitor renal function and electrolyte closely - Monitor urine output Assessment & Plan (09/16/2024 3:21 PM EDT): H/o CKD stage 3 with superimposed KATIE Baseline Cr ~1.5 Had KATIE pre-transplant, now with ongoing KATIE post transplant BUN and Cr remain elevated Sodium improving Plan: - Nephrology is following, appreciate recommendations - Monitor renal function and electrolyte closely - Monitor urine output Assessment & Plan (09/13/2024 2:03 PM EDT): H/o CKD stage 3 with superimposed KATIE Baseline Cr ~1.5 Had KATIE pre-transplant, now with ongoing KATIE post transplant BUN and Cr remain elevated Sodium remains low and is trending down Plan: - Nephrology is following, appreciate recommendations: today, plan for 500 cc NaCl bolus then repeating serum Na, urine Osm, and urine Na - Monitor renal function and electrolyte closely - Monitor urine output - 1 L fluid restriction Bbfntmyxshrtnwio93/21/2025scites due to alcoholic kfgxntbwe84/19/2025 Hepatocellular gaugdvtay06/17/2025Portal hypertension with esophageal varices 08/31/2024Encounter for pre-transplant evaluation for liver bnaxfgsgdz86/17/2025 Polyp of colon08/31/2024Severe protein-calorie ldenqjarppub55/13/2025 Assessment & Plan (01/13/2025 1:03 PM EDT): Severe malnutrition [facility] evaluation 12/26: Oropharyngeal swallow is seemingly functional today with no overt s/s of aspiration. Corpak replaced 01/02 after being pulled by patient -> in D1 on KUB Corpak was accidentally removed by patient 01/10 -> replaced 01/10 PLAN: - continue TF - Continue regular diet and supplements -> consulted Nutrition re: extended stay diet - Started on Remeron to boost appetite - Aspiration precautions - Monitor oral intake - RD following Assessment & Plan (01/12/2025 1:34 PM EDT): Severe malnutrition [facility] evaluation 12/26: Oropharyngeal swallow is seemingly functional today with no overt s/s of aspiration. Corpak replaced 01/02 after being pulled by patient -> in D1 on KUB Corpak was accidentally removed by patient 01/10 -> replaced 01/10 PLAN: - continue TF - Continue regular diet and supplements -> consulted Nutrition re: extended stay diet - Started on Remeron to boost appetite - Aspiration precautions - Monitor oral intake - RD following Assessment & Plan (01/11/2025 1:27 PM EDT): Severe malnutrition [facility] evaluation 12/26: Oropharyngeal swallow is seemingly functional today with no overt s/s of aspiration. Corpak replaced 01/02 after being pulled by patient -> in D1 on KUB Corpak was accidentally removed by patient 01/10 -> replaced 01/10 Corpak -> per RN Corpak is not flushing (possibly kinked) PLAN: -will try to pull back Corpak to release the kink and get repeat KUB - if unable to use Corpak will need replaced via EGD - Continue regular diet and supplements -> consulted Nutrition re: extended stay diet - Started on Remeron to boost appetite - Aspiration precautions - Monitor oral intake - RD following Assessment & Plan (01/10/2025 2:21 PM EDT): Severe malnutrition [facility] evaluation 12/26: Oropharyngeal swallow is seemingly functional today with no overt s/s of aspiration. Corpak replaced 01/02 after being pulled by patient -> in D1 on KUB Corpak was accidentally removed by patient 01/10 -> replaced but in pyloric region on KUB PLAN: - Corpak needs to be re-advanced and KUB repeat - can restart TF when Corpak is post-pyloric - Continue regular diet and supplements -> consulted Nutrition re: extended stay diet - Started on Remeron to boost appetite - Aspiration precautions - Monitor oral intake - RD following Assessment & Plan (01/09/2025 2:15 PM EDT): Severe malnutrition [facility] evaluation 12/26: Oropharyngeal swallow is seemingly functional today with no overt s/s of aspiration. Corpak replaced 01/02 after being pulled by patient -> in D1 on KUB PLAN: - Continue tube feeds at 30mL/hr and will reassess to increase tomorrow - Continue regular diet and supplements -> consulted Nutrition re: extended stay diet - Started on Remeron to boost appetite - Aspiration precautions - Monitor oral intake - RD following Assessment & Plan (01/08/2025 1:42 PM EDT): Severe malnutrition [facility] evaluation 12/26: Oropharyngeal swallow is seemingly functional today with no overt s/s of aspiration. Corpak replaced 01/02 after being pulled by patient -> in D1 on KUB PLAN: - will hold TF today due to abdominal distention - Continue regular diet and supplements -> consulted Nutrition re: extended stay diet - Started on Remeron to boost appetite - Aspiration precautions - Monitor oral intake - RD following Assessment & Plan (01/07/2025 2:13 PM EDT): Severe malnutrition [facility] evaluation 12/26: Oropharyngeal swallow is seemingly functional today with no overt s/s of aspiration. Corpak replaced 01/02 after being pulled by patient -> in D1 on KUB PLAN: - Continue TF - Continue regular diet and supplements -> consulted Nutrition re: extended stay diet - Started on Remeron to boost appetite - Aspiration precautions - Monitor oral intake - RD following Assessment & Plan (01/06/2025 7:41 PM EDT): Severe malnutrition [facility] evaluation 12/26: Oropharyngeal swallow is seemingly functional today with no overt s/s of aspiration. Corpak replaced 01/02 after being pulled by patient -> in D1 on KUB PLAN: - Continue TF - Continue regular diet and supplements -> consulted Nutrition re: extended stay diet - Started on Remeron to boost appetite - Aspiration precautions - Monitor oral intake - RD following Assessment & Plan (01/03/2025 12:49 PM EDT): Severe malnutrition [facility] evaluation 12/26: Oropharyngeal swallow is seemingly functional today with no overt s/s of aspiration. Corpak replaced 01/02 after being pulled by patient -> in D1 on KUB PLAN: - Continue TF - Continue regular diet and supplements - Started on Remeron to boost appetite - Aspiration precautions - Monitor oral intake - RD following Assessment & Plan (01/02/2025 2:06 PM EDT): Severe malnutrition [facility] evaluation 12/26: Oropharyngeal swallow is seemingly functional today with no overt s/s of aspiration. PLAN: - Replace corpak, will verify placement with KUB prior to restarting TF - Continue regular diet and supplements - Started on Remeron to boost appetite - Aspiration precautions - Monitor oral intake - RD following Assessment & Plan (01/01/2025 2:35 PM EDT): Severe malnutrition [facility] evaluation 12/26: Oropharyngeal swallow is seemingly functional today with no overt s/s of aspiration. PLAN: - Continue TF via Corpak - Continue regular diet and supplements - Started on Remeron to boost appetite - Aspiration precautions - Monitor oral intake - RD following Assessment & Plan (12/31/2024 12:04 PM EDT): Severe malnutrition [facility] evaluation 12/26: Oropharyngeal swallow is seemingly functional today with no overt s/s of aspiration. PLAN: - Continue TF via Corpak - Continue regular diet and supplements - Started on Remeron to boost appetite - Aspiration precautions - Monitor oral intake - RD following Assessment & Plan (12/30/2024 12:53 PM EDT): Severe malnutrition [facility] evaluation 12/26: Oropharyngeal swallow is seemingly functional today with no overt s/s of aspiration. PLAN: - Continue TF via Corpak - Continue regular diet and supplements - Aspiration precautions - Monitor oral intake - RD following Assessment & Plan (12/27/2024 1:26 PM EDT): Severe malnutrition [facility] evaluation 12/26: Oropharyngeal swallow is seemingly functional today with no overt s/s of aspiration. PLAN: - Continue TF via Corpak - Advance diet to regula - Aspiration precautions - Monitor oral intake - RD following Assessment & Plan (10/29/2024 12:49 PM EDT): [...] Reglan for appetite stimulation IVF to KVO 10/21 Assessment & Plan (10/23/2024 11:05 AM EDT): Assessment: In the context of: Acute Illness or Injury Based on: Muscle Loss, Subcutaneous Fat Loss Plan: nutrition on consult regular diet with supplements Start Reglan for appetite stimulation IVF to KVO 10/21 Assessment & Plan (10/22/2024 4:37 PM EDT): Assessment: In the context of: Acute Illness or Injury Based on: Muscle Loss, Subcutaneous Fat Loss Plan: nutrition on consult regular diet with supplements IVF to KVO 10/21 Assessment & Plan (10/21/2024 4:20 PM EDT): Assessment: In the context of: Acute Illness or Injury Based on: Muscle Loss, Subcutaneous Fat Loss Plan: nutrition on consult regular diet with supplements IVF to KVO 7 Assessment & Plan (10/20/2024 11:00 AM EDT): [...] PO intake CKD stage 3a, GFR 45-59 ml/min08/27/20244997Hzsnfvcfqunv10/13/2025 Assessment & Plan (09/28/2024 4:22 PM EDT): [...] Plan (09/13/2024 2:03 PM EDT): See CKD Eottgaqggvss29/13/0850Bkvjiyvqnipf55/13/2025Decompensated flfzgethd13/12/2025 Alcoholic cirrhosis of liver with zweaxro4908/26/2024Pleural iacoybno75/10/2025 Assessment & Plan (01/13/2025 1:03 PM EDT): CXR 12/10: Mild increase and/or shift of small right and moderate left pleural effusions Left sided pigtail placed in SICU on 12/11. Removed 12/15. CT chest 12/16: Bilateral multiloculated pleural fluid collections are unchanged. Patient reintubated 12/17 IR placed left sided chest tube 12/18. TpA administered by thoracic x3 doses from 12/20-12/22 Extubated 12/24 Chest drain removed 12/25 CXR 01/02: mixed changes overall mild improvement of perihilar and basilar opacities. These may represent atelectasis with underlying edema duration. Partially loculated small right and trace left pleural effusions remain. ECHO 01/02: normal biventricular function. EF 65%. No pericardial effusion. Chest CT 01/04/25: -loculated right sided pleural effusion Echo 01/02 w/ normal LVEF On RA + shortness of breath PLAN: - Continue Lasix 20 mg PO BID - per IR staff, effusion is too small to place drain. Re-consulted thoracic for VATS+ decorticationand did not meet indication - Monitor respiratory status - Supplemental oxygen as needed - Pulmonary hygiene: IS, OOB, deep breathing - CXR PRN Assessment & Plan (01/12/2025 1:34 PM EDT): CXR 12/10: Mild increase and/or shift of small right and moderate left pleural effusions Left sided pigtail placed in SICU on 12/11. Removed 12/15. CT chest 12/16: Bilateral multiloculated pleural fluid collections are unchanged. Patient reintubated 12/17 IR placed left sided chest tube 12/18. TpA administered by thoracic x3 doses from 12/20-12/22 Extubated 12/24 Chest drain removed 12/25 CXR 01/02: mixed changes overall mild improvement of perihilar and basilar opacities. These may represent atelectasis with underlying edema duration. Partially loculated small right and trace left pleural effusions remain. ECHO 01/02: normal biventricular function. EF 65%. No pericardial effusion. Chest CT 01/04/25: -loculated right sided pleural effusion Echo 01/02 w/ normal LVEF On RA + shortness of breath PLAN: - Continue Lasix 20 mg PO BID - per IR staff, effusion is too small to place drain. Re-consulted thoracic for VATS+ decorticationand did not meet indication - Monitor respiratory status - Supplemental oxygen as needed - Pulmonary hygiene: IS, OOB, deep breathing - CXR PRN Assessment & Plan (01/11/2025 1:27 PM EDT): CXR 12/10: Mild increase and/or shift of small right and moderate left pleural effusions Left sided pigtail placed in SICU on 12/11. Removed 12/15. CT chest 12/16: Bilateral multiloculated pleural fluid collections are unchanged. Patient reintubated 12/17 IR placed left sided chest tube 12/18. TpA administered by thoracic x3 doses from 12/20-12/22 Extubated 12/24 Chest drain removed 12/25 CXR 01/02: mixed changes overall mild improvement of perihilar and basilar opacities. These may represent atelectasis with underlying edema duration. Partially loculated small right and trace left pleural effusions remain. ECHO 01/02: normal biventricular function. EF 65%. No pericardial effusion. Chest CT 01/04/25: -loculated right sided pleural effusion Echo 01/02 w/ normal LVEF On RA + shortness of breath PLAN: - Continue Lasix 20 mg PO BID - per IR staff, effusion is too small to place drain. Re-consulted thoracic for VATS+ decorticationand did not meet indication - Monitor respiratory status - Supplemental oxygen as needed - Pulmonary hygiene: IS, OOB, deep breathing - CXR PRN Assessment & Plan (01/10/2025 2:21 PM EDT): CXR 12/10: Mild increase and/or shift of small right and moderate left pleural effusions Left sided pigtail placed in SICU on 12/11. Removed 12/15. CT chest 12/16: Bilateral multiloculated pleural fluid collections are unchanged. Patient reintubated 12/17 IR placed left sided chest tube 12/18. TpA administered by thoracic x3 doses from 12/20-12/22 Extubated 12/24 Chest drain removed 12/25 CXR 01/02: mixed changes overall mild improvement of perihilar and basilar opacities. These may represent atelectasis with underlying edema duration. Partially loculated small right and trace left pleural effusions remain. ECHO 01/02: normal biventricular function. EF 65%. No pericardial effusion. Chest CT 01/04/25: -loculated right sided pleural effusion Echo 01/02 w/ normal LVEF On RA + shortness of breath PLAN: - Continue Lasix 20 mg PO BID - per IR staff, effusion is too small to place drain. Re-consulted thoracic for VATS+ decorticationand did not meet indication - Monitor respiratory status - Supplemental oxygen as needed - Pulmonary hygiene: IS, OOB, deep breathing - CXR PRN Assessment & Plan (01/09/2025 2:12 PM EDT): CXR 12/10: Mild increase and/or shift of small right and moderate left pleural effusions Left sided pigtail placed in SICU on 12/11. Removed 12/15. CT chest 12/16: Bilateral multiloculated pleural fluid collections are unchanged. Patient reintubated 12/17 IR placed left sided chest tube 12/18. TpA administered by thoracic x3 doses from 12/20-12/22 Extubated 12/24 Chest drain removed 12/25 CXR 01/02: mixed changes overall mild improvement of perihilar and basilar opacities. These may represent atelectasis with underlying edema duration. Partially loculated small right and trace left pleural effusions remain. ECHO 01/02: normal biventricular function. EF 65%. No pericardial effusion. Chest CT 01/04/25: -loculated right sided pleural effusion Echo 01/02 w/ normal LVEF On RA + shortness of breath PLAN: - Continue Lasix 20 mg PO BID - per IR staff, effusion is too small to place drain. Re-consulted thoracic for VATS+ decorticationand did not meet indication - Monitor respiratory status - Supplemental oxygen as needed - Pulmonary hygiene: IS, OOB, deep breathing - CXR PRN Assessment & Plan (01/08/2025 1:43 PM EDT): CXR 12/10: Mild increase and/or shift of small right and moderate left pleural effusions Left sided pigtail placed in SICU on 12/11. Removed 12/15. CT chest 12/16: Bilateral multiloculated pleural fluid collections are unchanged. Patient reintubated 12/17 IR placed left sided chest tube 12/18. TpA administered by thoracic x3 doses from 12/20-12/22 Extubated 12/24 Chest drain removed 12/25 CXR 01/02: mixed changes overall mild improvement of perihilar and basilar opacities. These may represent atelectasis with underlying edema duration. Partially loculated small right and trace left pleural effusions remain. ECHO 01/02: normal biventricular function. EF 65%. No pericardial effusion. Chest CT 01/04/25: -loculated right sided pleural effusion Echo 01/02 w/ normal LVEF On RA + shortness of breath PLAN: - Continue Lasix 20 mg PO BID - per IR staff, effusion is too small to place drain. Re-consulted thoracic for VATS+ decorticationconsideration - Monitor respiratory status - Supplemental oxygen as needed - Pulmonary hygiene: IS, OOB, deep breathing - CXR PRN Assessment & Plan (01/07/2025 2:13 PM EDT): CXR 12/10: Mild increase and/or shift of small right and moderate left pleural effusions Left sided pigtail placed in SICU on 12/11. Removed 12/15. CT chest 12/16: Bilateral multiloculated pleural fluid collections are unchanged. Patient reintubated 12/17 IR placed left sided chest tube 12/18. TpA administered by thoracic x3 doses from 12/20-12/22 Extubated 12/24 Chest drain removed 12/25 CXR 01/02: mixed changes overall mild improvement of perihilar and basilar opacities. These may represent atelectasis with underlying edema duration. Partially loculated small right and trace left pleural effusions remain. ECHO 01/02: normal biventricular function. EF 65%. No pericardial effusion. Chest CT 01/04/25: -loculated right sided pleural effusion Echo 01/02 w/ normal LVEF On RA + shortness of breath PLAN: - Continue Lasix 20 mg PO BID - discussed right loculated effusion with thoracic surgery on 01/05-> they recommended right pigtail w/ IR if we want to address the right sided effusion, and if needed they can TPA this side. IR consulted. -> ordered chest ultrasound per IR request - Monitor respiratory status - Supplemental oxygen as needed - Pulmonary hygiene: IS, OOB, deep breathing - CXR PRN Assessment & Plan (01/06/2025 7:41 PM EDT): CXR 12/10: Mild increase and/or shift of small right and moderate left pleural effusions Left sided pigtail placed in SICU on 12/11. Removed 12/15. CT chest 12/16: Bilateral multiloculated pleural fluid collections are unchanged. Patient reintubated 12/17 IR placed left sided chest tube 12/18. TpA administered by thoracic x3 doses from 12/20-12/22 Extubated 12/24 Chest drain removed 12/25 CXR 01/02: mixed changes overall mild improvement of perihilar and basilar opacities. These may represent atelectasis with underlying edema duration. Partially loculated small right and trace left pleural effusions remain. ECHO 01/02: normal biventricular function. EF 65%. No pericardial effusion. Chest CT 01/04/25: -loculated right sided pleural effusion Echo 01/02 w/ normal LVEF On RA + shortness of breath PLAN: - Continue Lasix 20 mg PO BID - discussed right loculated effusion with thoracic surgery on 01/05-> they recommended right pigtail w/ IR if we want to address the right sided effusion, and if needed they can TPA this side. IR consulted. - Monitor respiratory status - Supplemental oxygen as needed - Pulmonary hygiene: IS, OOB, deep breathing - CXR PRN Assessment & Plan (01/03/2025 12:47 PM EDT): CXR 12/10: Mild increase and/or shift of small right and moderate left pleural effusions Left sided pigtail placed in SICU on 12/11. Removed 12/15. CT chest 12/16: Bilateral multiloculated pleural fluid collections are unchanged. Patient reintubated 12/17 IR placed left sided chest tube 12/18. TpA administered by thoracic x3 doses from 12/20-12/22 Extubated 12/24 Chest drain removed 12/25 CXR 01/02: mixed changes overall mild improvement of perihilar and basilar opacities. These may represent atelectasis with underlying edema duration. Partially loculated small right and trace left pleural effusions remain. ECHO 01/02: normal biventricular function. EF 65%. No pericardial effusion. On RA + shortness of breath PLAN: - Continue Lasix 20 mg PO BID - CT chest, abdomen, and pelvis without contrast - Monitor respiratory status - Supplemental oxygen as needed - Pulmonary hygiene: IS, OOB, deep breathing - CXR PRN Assessment & Plan (01/02/2025 2:05 PM EDT): CXR 12/10: Mild increase and/or shift of small right and moderate left pleural effusions Left sided pigtail placed in SICU on 12/11. Removed 12/15. CT chest 12/16: Bilateral multiloculated pleural fluid collections are unchanged. Patient reintubated 12/17 IR placed left sided chest tube 12/18. TpA administered by thoracic x3 doses from 12/20-12/22 Extubated 12/24 Chest drain removed 12/25 On RA today PLAN: - Increase Lasix 20 mg PO to BID - Monitor respiratory status - Supplemental oxygen as needed - Pulmonary hygiene: IS, OOB, deep breathing - CXR PRN - Repeat Echo - stable Assessment & Plan (01/01/2025 2:36 PM EDT): CXR 12/10: Mild increase and/or shift of small right and moderate left pleural effusions Left sided pigtail placed in SICU on 12/11. Removed 12/15. CT chest 12/16: Bilateral multiloculated pleural fluid collections are unchanged. Patient reintubated 12/17 IR placed left sided chest tube 12/18. TpA administered by thoracic x3 doses from 12/20-12/22 Extubated 12/24 Chest drain removed 12/25 On RA today PLAN: - Lasix 20 mg PO daily - Monitor respiratory status - Supplemental oxygen as needed - Pulmonary hygiene: IS, OOB, deep breathing - CXR PRN - Repeat BNP and obtain repeat Echo Assessment & Plan (12/31/2024 12:01 PM EDT): CXR 12/10: Mild increase and/or shift of small right and moderate left pleural effusions Left sided pigtail placed in SICU on 12/11. Removed 12/15. CT chest 12/16: Bilateral multiloculated pleural fluid collections are unchanged. Patient reintubated 12/17 IR placed left sided chest tube 12/18. TpA administered by thoracic x3 doses from 12/20-12/22 Extubated 12/24 Chest drain removed 12/25 On 2-3 L NC + Shortness of breath PLAN: - CXR today - Start Lasix 20 mg PO daily - Monitor respiratory status - Supplemental oxygen as needed - Pulmonary hygiene: IS, OOB, deep breathing - CXR PRN Assessment & Plan (12/30/2024 12:53 PM EDT): CXR 12/10: Mild increase and/or shift of small right and moderate left pleural effusions Left sided pigtail placed in SICU on 12/11. Removed 12/15. CT chest 12/16: Bilateral multiloculated pleural fluid collections are unchanged. Patient reintubated 12/17 IR placed left sided chest tube 12/18. Output 20 cc over last 24 hours. TpA administered by thoracic x3 doses from 12/20-12/22 Extubated 12/24 Chest drain removed 12/25 On room air PLAN: - Monitor respiratory status - Supplemental oxygen as needed - Pulmonary hygiene: IS, OOB, deep breathing - CXR PRN Assessment & Plan (12/27/2024 1:18 PM EDT): CXR 12/10: Mild increase and/or shift of small right and moderate left pleural effusions Left sided pigtail placed in SICU on 12/11. Removed 12/15. CT chest 12/16: Bilateral multiloculated pleural fluid collections are unchanged. Patient reintubated 12/17 IR placed left sided chest tube 12/18. Output 20 cc over last 24 hours. TpA administered by thoracic x3 doses from 12/20-12/22 Extubated 12/24 Chest drain removed 12/25 PLAN: - Monitor respiratory status - Supplemental oxygen as needed - Pulmonary hygiene: IS, OOB, deep breathing - CXR PRN Assessment & Plan (12/26/2024 3:47 PM EDT): CXR 12/10: Mild increase and/or shift of small right and moderate left pleural effusions Left sided pigtail placed in SICU on 12/11. Removed 12/15. CT chest 12/16: Bilateral multiloculated pleural fluid collections are unchanged. Patient reintubated 12/17 IR placed left sided chest tube 12/18. Output 20 cc over last 24 hours. TpA administered by thoracic x3 doses from 12/20-12/22 Extubated 12/24 Chest drain removed 12/25 PLAN: - cont to monitor respiratory status Assessment & Plan (12/23/2024 12:42 PM EDT): CXR 12/10: Mild increase and/or shift of small right and moderate left pleural effusions Left sided pigtail placed in SICU on 12/11. Removed 12/15. CT chest 12/16: Bilateral multiloculated pleural fluid collections are unchanged. Patient reintubated 12/17 IR placed left sided chest tube 12/18. Output 20 cc over last 24 hours. 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 S/p tPA 12/19, 12/20 - TpA given today - Please Continue to Hold off Heparin - Will plan on follow up CXR after Chest tube unclamped Assessment & Plan (12/20/2024 11:15 AM EDT): CXR 12/10: Mild increase and/or shift of small right and moderate left pleural effusions Left sided pigtail placed in SICU on 12/11. Removed 12/15. CT chest 12/16: Bilateral multiloculated pleural fluid collections are unchanged. Patient reintubated 12/17 IR placed left sided chest tube 12/18. Output 155 cc over last 24 hours. PLAN: - Continue to monitor chest tube - Thoracics consulted, appreciate recommendations. Planning for 3 days of TpA, starting today. 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 S/p tPA 12/19 - TpA today - Please Hold off Heparin - Obtain new Coags before Tpa Assessment & Plan (12/19/2024 4:49 PM EDT): CXR 12/10: Mild increase and/or shift of small right and moderate left pleural effusions Left sided pigtail placed in SICU on 12/11. Removed 12/15. CT chest 12/16: Bilateral multiloculated pleural fluid collections are unchanged. Patient reintubated 12/17 IR placed left sided chest tube 12/18. Output 85 cc over last 24 hours. PLAN: - Continue to monitor chest tube - Thoracics consulted, appreciate recommendations. Planning for 3 days of TpA, starting tomorrow. 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 with long hospitalization complicated with Shortness of Breath, Biloma s/p Drain placement for Drainage, Bilateral Pleural Effusion s/p Left Thoracentesis on 10/14, patient presented to OSH for [place] AMS was found to have left rib fractures and Left pubic rami fractures, Severe compression deformities of T12 and L1 s/p T8-L3 PSIF T12 Partial Corpectomy with now recurrent pleural effusion after previous Pigtail placement on the left side s/p left pigtail placed on 12/18 - Reccs sending Fluid studies along with bilirubin (given prior bile leak) and Fluid Cultures - Possible TpA today - Please Hold off Heparin - Obtain new Coags before Tpa Assessment & Plan (12/18/2024 12:02 PM EDT): CXR 12/10: Mild increase and/or shift of small right and moderate left pleural effusions Left sided pigtail placed in SICU on 12/11. Removed 12/15. CT chest 12/16: Bilateral multiloculated pleural fluid collections are unchanged. 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 with long hospitalization complicated with Shortness of Breath, Biloma s/p Drain placement for Drainage, Bilateral Pleural Effusion s/p Left Thoracentesis on 10/14, patient presented to OSH for [place] AMS was found to have left rib fractures and Left pubic rami fractures, Severe compression deformities of T12 and L1 s/p T8-L3 PSIF T12 Partial Corpectomy with now recurrent pleural effusion after previous Pigtail placement on the left side - Reccs Left Pigtail placement - Reccs sending Fluid studies along with bilirubin (given prior bile leak) and Fluid Cultures - Hold SQ Heparin after midnight if IR place pigtail today - Will plan for Tpa/Dornase tomorrow if Liver transplant team is agreeable - Coags in AM with morning labs Assessment & Plan (12/12/2024 1:53 PM EDT): CXR 12/10: Mild increase and/or shift of small right and moderate left pleural effusions Left sided pigtail placed in SICU on 12/11. Pigatil output 2.1L since placement. PLAN: - Monitor pigtail Assessment & Plan (12/11/2024 1:09 PM EDT): CXR 12/10: Mild increase and/or shift of small right and moderate left pleural effusions Left sided pigtail placed in SICU on 12/11. 1.5 L removed on placement. PLAN: - Monitor pigtail Assessment & Plan (09/28/2024 4:22 PM EDT): CXR with medium to large right pleural effusion S/p R chest tube placement by ICU team 09/12 - 09/22 Plan: - Monitor respiratory status Assessment & Plan (09/27/2024 2:22 PM EDT): CXR with medium to large right pleural effusion S/p R chest tube placement by ICU team 09/12 - 09/22 Plan: - Monitor respiratory status Assessment & Plan (09/26/2024 1:04 PM EDT): CXR with medium to large right pleural effusion S/p R chest tube placement by ICU team 09/12 - 08/22 Plan: - Monitor respiratory status Assessment & Plan (09/25/2024 12:54 PM EDT): CXR with medium to large right pleural effusion S/p R chest tube placement by ICU team 09/12 - 08/22 Plan: - Monitor respiratory status Assessment & Plan (09/24/2024 11:44 AM EDT): CXR with medium to large right pleural effusion S/p R chest tube placement by ICU team 09/12 - 08/22 Plan: - Monitor respiratory status Assessment [...] by ICU team 09/12 110mL output/24hrs CXR 09/21: There is a small right apical pneumothorax. Bilateral pleural effusions are present with adjacent atelectasis. Right effusion may be loculated. No pulmonary edema. Plan: - Remove Chest tube today - Monitor respiratory status - check CXR tomorrow Assessment & Plan (09/21/2024 2:21 PM EDT): CXR with medium to large right pleural effusion S/p R chest tube placement by ICU team 5 70mL output/24hrs CXR 09/21: There is a small right apical pneumothorax. [...] chest tube placement by ICU team 09/12 410mL output/24hrs Plan: - Monitor chest tube [...] chest tube placement by ICU team 5 534mL output/24hrs Plan: - Monitor chest tube output - Monitor respiratory status Assessment & Plan (09/16/2024 3:19 PM EDT): CXR with medium to large right pleural effusion S/p R chest tube placement by ICU team 5 386 mL output/24hrs Plan: - Monitor chest tube output - Monitor respiratory status Assessment & Plan (09/13/2024 1:59 PM EDT): CXR with medium to large right pleural effusion S/p R chest tube placement by ICU team 09/12: 1.5 L output Plan: - Monitor chest tube output - Monitor respiratory status Chronic midline back pain08/24/2024 Assessment & Plan (01/13/2025 1:03 PM EDT): MRI spine 11/28: see imaging read for complete list of results. In summary: New subacute severe compression fracture of T11 vertebral body, with 80% height loss and mild retropulsion. Severe compression fracture of T12 vertebral body, with mildly increased height loss and retropulsion, now with moderate canal narrowing and mild effacement of the lower thoracic cord without signal abnormality. OR with neuro spine surgery 12/03/24: T8-L3 PSIF, T12 partial corpectomy d/t T11 and T12 compressionfractures Acute Pain re-consulted 12/07 -> increased PO Dilaudid -> however patient is more drowsy/delirious with increase in narcotics -> dropped back to Dilaudid 2 mg PO q3 hour PRN Hemovac removed 12/10 PLAN: - Neurosurgery consulted, appreciate recommendations Assessment & Plan (01/12/2025 1:35 PM EDT): MRI spine 11/28: see imaging read for complete list of results. In summary: New subacute severe compression fracture of T11 vertebral body, with 80% height loss and mild retropulsion. Severe compression fracture of T12 vertebral body, with mildly increased height loss and retropulsion, now with moderate canal narrowing and mild effacement of the lower thoracic cord without signal abnormality. OR with neuro spine surgery 12/03/24: T8-L3 PSIF, T12 partial corpectomy d/t T11 and T12 compressionfractures Acute Pain re-consulted 12/07 -> increased PO Dilaudid -> however patient is more drowsy/delirious with increase in narcotics -> dropped back to Dilaudid 2 mg PO q3 hour PRN Hemovac removed 12/10 PLAN: - Neurosurgery consulted, appreciate recommendations Assessment & Plan (01/11/2025 1:28 PM EDT): MRI spine 11/28: see imaging read for complete list of results. In summary: New subacute severe compression fracture of T11 vertebral body, with 80% height loss and mild retropulsion. Severe compression fracture of T12 vertebral body, with mildly increased height loss and retropulsion, now with moderate canal narrowing and mild effacement of the lower thoracic cord without signal abnormality. OR with neuro spine surgery 12/03/24: T8-L3 PSIF, T12 partial corpectomy d/t T11 and T12 compressionfractures Acute Pain re-consulted 12/07 -> increased PO Dilaudid -> however patient is more drowsy/delirious with increase in narcotics -> dropped back to Dilaudid 2 mg PO q3 hour PRN Hemovac removed 12/10 PLAN: - Neurosurgery consulted, appreciate recommendations Assessment & Plan (01/10/2025 2:23 PM EDT): MRI spine 11/28: see imaging read for complete list of results. In summary: New subacute severe compression fracture of T11 vertebral body, with 80% height loss and mild retropulsion. Severe compression fracture of T12 vertebral body, with mildly increased height loss and retropulsion, now with moderate canal narrowing and mild effacement of the lower thoracic cord without signal abnormality. OR with neuro spine surgery 12/03/24: T8-L3 PSIF, T12 partial corpectomy d/t T11 and T12 compressionfractures Acute Pain re-consulted 12/07 -> increased PO Dilaudid -> however patient is more drowsy/delirious with increase in narcotics -> dropped back to Dilaudid 2 mg PO q3 hour PRN Hemovac removed 12/10 PLAN: - Neurosurgery consulted, appreciate recommendations Assessment & Plan (01/09/2025 2:13 PM EDT): MRI spine 11/28: see imaging read for complete list of results. In summary: New subacute severe compression fracture of T11 vertebral body, with 80% height loss and mild retropulsion. Severe compression fracture of T12 vertebral body, with mildly increased height loss and retropulsion, now with moderate canal narrowing and mild effacement of the lower thoracic cord without signal abnormality. OR with neuro spine surgery 12/03/24: T8-L3 PSIF, T12 partial corpectomy d/t T11 and T12 compressionfractures Acute Pain re-consulted 12/07 -> increased PO Dilaudid -> however patient is more drowsy/delirious with increase in narcotics -> dropped back to Dilaudid 2 mg PO q3 hour PRN Hemovac removed 12/10 PLAN: - Neurosurgery consulted, appreciate recommendations Assessment & Plan (01/08/2025 1:45 PM EDT): MRI spine 11/28: see imaging read for complete list of results. In summary: New subacute severe compression fracture of T11 vertebral body, with 80% height loss and mild retropulsion. Severe compression fracture of T12 vertebral body, with mildly increased height loss and retropulsion, now with moderate canal narrowing and mild effacement of the lower thoracic cord without signal abnormality. OR with neuro spine surgery 12/03/24: T8-L3 PSIF, T12 partial corpectomy d/t T11 and T12 compressionfractures Acute Pain re-consulted 12/07 -> increased PO Dilaudid -> however patient is more drowsy/delirious with increase in narcotics -> dropped back to Dilaudid 2 mg PO q3 hour PRN Hemovac removed 12/10 PLAN: - Neurosurgery consulted, appreciate recommendations Assessment & Plan (01/07/2025 2:16 PM EDT): MRI spine 11/28: see imaging read for complete list of results. In summary: New subacute severe compression fracture of T11 vertebral body, with 80% height loss and mild retropulsion. Severe compression fracture of T12 vertebral body, with mildly increased height loss and retropulsion, now with moderate canal narrowing and mild effacement of the lower thoracic cord without signal abnormality. OR with neuro spine surgery 12/03/24: T8-L3 PSIF, T12 partial corpectomy d/t T11 and T12 compressionfractures Acute Pain re-consulted 12/07 -> increased PO Dilaudid -> however patient is more drowsy/delirious with increase in narcotics -> dropped back to Dilaudid 2 mg PO q3 hour PRN Hemovac removed 12/10 PLAN: - Neurosurgery consulted, appreciate recommendations Assessment & Plan (01/06/2025 7:41 PM EDT): MRI spine 11/28: see imaging read for complete list of results. In summary: New subacute severe compression fracture of T11 vertebral body, with 80% height loss and mild retropulsion. Severe compression fracture of T12 vertebral body, with mildly increased height loss and retropulsion, now with moderate canal narrowing and mild effacement of the lower thoracic cord without signal abnormality. OR with neuro spine surgery 12/03/24: T8-L3 PSIF, T12 partial corpectomy d/t T11 and T12 compressionfractures Acute Pain re-consulted 12/07 -> increased PO Dilaudid -> however patient is more drowsy/delirious with increase in narcotics -> dropped back to Dilaudid 2 mg PO q3 hour PRN Hemovac removed 12/10 PLAN: - Neurosurgery consulted, appreciate recommendations Assessment & Plan (01/03/2025 12:48 PM EDT): MRI spine 11/28: see imaging read for complete list of results. In summary: New subacute severe compression fracture of T11 vertebral body, with 80% height loss and mild retropulsion. Severe compression fracture of T12 vertebral body, with mildly increased height loss and retropulsion, now with moderate canal narrowing and mild effacement of the lower thoracic cord without signal abnormality. OR with neuro spine surgery 12/03/24: T8-L3 PSIF, T12 partial corpectomy d/t T11 and T12 compressionfractures Acute Pain re-consulted 12/07 -> increased PO Dilaudid -> however patient is more drowsy/delirious with increase in narcotics -> dropped back to Dilaudid 2 mg PO q3 hour PRN Hemovac removed 12/10 PLAN: - Neurosurgery consulted, appreciate recommendations Assessment & Plan (01/02/2025 2:05 PM EDT): MRI spine 11/28: see imaging read for complete list of results. In summary: New subacute severe compression fracture of T11 vertebral body, with 80% height loss and mild retropulsion. Severe compression fracture of T12 vertebral body, with mildly increased height loss and retropulsion, now with moderate canal narrowing and mild effacement of the lower thoracic cord without signal abnormality. OR with neuro spine surgery 12/03/24: T8-L3 PSIF, T12 partial corpectomy d/t T11 and T12 compressionfractures Acute Pain re-consulted 12/07 -> increased PO Dilaudid -> however patient is more drowsy/delirious with increase in narcotics -> dropped back to Dilaudid 2 mg PO q3 hour PRN Hemovac removed 12/10 PLAN: - Neurosurgery consulted, appreciate recommendations Assessment & Plan (01/01/2025 2:35 PM EDT): MRI spine 11/28: see imaging read for complete list of results. In summary: New subacute severe compression fracture of T11 vertebral body, with 80% height loss and mild retropulsion. Severe compression fracture of T12 vertebral body, with mildly increased height loss and retropulsion, now with moderate canal narrowing and mild effacement of the lower thoracic cord without signal abnormality. OR with neuro spine surgery 12/03/24: T8-L3 PSIF, T12 partial corpectomy d/t T11 and T12 compressionfractures Acute Pain re-consulted 12/07 -> increased PO Dilaudid -> however patient is more drowsy/delirious with increase in narcotics -> dropped back to Dilaudid 2 mg PO q3 hour PRN Hemovac removed 12/10 PLAN: - Neurosurgery consulted, appreciate recommendations Assessment & Plan (12/31/2024 12:01 PM EDT): MRI spine 11/28: see imaging read for complete list of results. In summary: New subacute severe compression fracture of T11 vertebral body, with 80% height loss and mild retropulsion. Severe compression fracture of T12 vertebral body, with mildly increased height loss and retropulsion, now with moderate canal narrowing and mild effacement of the lower thoracic cord without signal abnormality. OR with neuro spine surgery 12/03/24: T8-L3 PSIF, T12 partial corpectomy d/t T11 and T12 compressionfractures Acute Pain re-consulted 12/07 -> increased PO Dilaudid -> however patient is more drowsy/delirious with increase in narcotics -> dropped back to Dilaudid 2 mg PO q3 hour PRN Hemovac removed 12/10 PLAN: - Neurosurgery consulted, appreciate recommendations Assessment & Plan (12/30/2024 12:53 PM EDT): MRI spine 11/28: see imaging read for complete list of results. In summary: New subacute severe compression fracture of T11 vertebral body, with 80% height loss and mild retropulsion. Severe compression fracture of T12 vertebral body, with mildly increased height loss and retropulsion, now with moderate canal narrowing and mild effacement of the lower thoracic cord without signal abnormality. OR with neuro spine surgery 12/03/24: T8-L3 PSIF, T12 partial corpectomy d/t T11 and T12 compressionfractures Acute Pain re-consulted 12/07 -> increased PO Dilaudid -> however patient is more drowsy/delirious with increase in narcotics -> dropped back to Dilaudid 2 mg PO q3 hour PRN Hemovac removed 12/10 PLAN: - Neurosurgery consulted, appreciate recommendations - Acute pain consulted, appreciate recommendations Assessment & Plan (12/27/2024 1:19 PM EDT): MRI spine 11/28: see imaging read for complete list of results. In summary: New subacute severe compression fracture of T11 vertebral body, with 80% height loss and mild retropulsion. Severe compression fracture of T12 vertebral body, with mildly increased height loss and retropulsion, now with moderate canal narrowing and mild effacement of the lower thoracic cord without signal abnormality. OR with neuro spine surgery 12/03/24: T8-L3 PSIF, T12 partial corpectomy d/t T11 and T12 compressionfractures Acute Pain re-consulted 12/07 -> increased PO Dilaudid -> however patient is more drowsy/delirious with increase in narcotics -> dropped back to Dilaudid 2 mg PO q3 hour PRN Hemovac removed 12/10 PLAN: - Neurosurgery consulted, appreciate recommendations - Acute pain consulted, appreciate recommendations Assessment & Plan (12/26/2024 3:53 PM EDT): MRI spine 11/28: see imaging read for complete list of results. In summary: New subacute severe compression fracture of T11 vertebral body, with 80% height loss and mild retropulsion. Severe compression fracture of T12 vertebral body, with mildly increased height loss and retropulsion, now with moderate canal narrowing and mild effacement of the lower thoracic cord without signal abnormality. OR with neuro spine surgery 12/03/24: T8-L3 PSIF, T12 partial corpectomy d/t T11 and T12 compressionfxs Acute Pain re-consulted 12/07 -> increased PO Dilaudid -> however patient is more drowsy/delirious with increase in narcotics -> dropped back to Dilaudid 2 mg PO q3 hour PRN Hemovac removed 12/10 - currently on Dilaudid IV 0.2mg PRN q2 (not requiring doses) amd oxycodone 2.5- 5mg PRN q3 PLAN: - Neurosurgery consulted, appreciate recommendations - Acute pain consulted, appreciate recommendations Assessment & Plan (12/23/2024 12:42 PM EDT): MRI spine 11/28: see imaging read for complete list of results. In summary: New subacute severe compression fracture of T11 vertebral body, with 80% height loss and mild retropulsion. Severe compression fracture of T12 vertebral body, with mildly increased height loss and retropulsion, now with moderate canal narrowing and mild effacement of the lower thoracic cord without signal abnormality. OR with neuro spine surgery 12/03/24: T8-L3 PSIF, T12 partial corpectomy d/t T11 and T12 compressionfxs Acute Pain re-consulted 12/07 -> increased PO Dilaudid -> however patient is more drowsy/delirious with increase in narcotics -> dropped back to Dilaudid 2 mg PO q3 hour PRN Hemovac removed 12/10 PLAN: - Neurosurgery consulted, appreciate recommendations - Acute pain consulted, appreciate recommendations Assessment & Plan (12/20/2024 11:16 AM EDT): MRI spine 11/28: see imaging read for complete list of results. In summary: New subacute severe compression fracture of T11 vertebral body, with 80% height loss and mild retropulsion. Severe compression fracture of T12 vertebral body, with mildly increased height loss and retropulsion, now with moderate canal narrowing and mild effacement of the lower thoracic cord without signal abnormality. OR with neuro spine surgery 12/03/24: T8-L3 PSIF, T12 partial corpectomy d/t T11 and T12 compressionfxs Acute Pain re-consulted 12/07 -> increased PO Dilaudid -> however patient is more drowsy/delirious with increase in narcotics -> dropped back to Dilaudid 2 mg PO q3 hour PRN Hemovac removed 12/10 PLAN: - Neurosurgery consulted, appreciate recommendations - Acute pain consulted, appreciate recommendations Assessment & Plan (12/19/2024 4:48 PM EDT): MRI spine 11/28: see imaging read for complete list of results. In summary: New subacute severe compression fracture of T11 vertebral body, with 80% height loss and mild retropulsion. Severe compression fracture of T12 vertebral body, with mildly increased height loss and retropulsion, now with moderate canal narrowing and mild effacement of the lower thoracic cord without signal abnormality. OR with neuro spine surgery 12/03/24: T8-L3 PSIF, T12 partial corpectomy d/t T11 and T12 compressionfxs Acute Pain re-consulted 12/07 -> increased PO Dilaudid -> however patient is more drowsy/delirious with increase in narcotics -> dropped back to Dilaudid 2 mg PO q3 hour PRN Hemovac removed 12/10 PLAN: - Neurosurgery consulted, appreciate recommendations - Acute pain consulted, appreciate recommendations Assessment & Plan (12/18/2024 12:02 PM EDT): MRI spine 11/28: see imaging read for complete list of results. In summary: New subacute severe compression fracture of T11 vertebral body, with 80% height loss and mild retropulsion. Severe compression fracture of T12 vertebral body, with mildly increased height loss and retropulsion, now with moderate canal narrowing and mild effacement of the lower thoracic cord without signal abnormality. OR with neuro spine surgery 12/03/24: T8-L3 PSIF, T12 partial corpectomy d/t T11 and T12 compressionfxs Acute Pain re-consulted 12/07 -> increased PO Dilaudid -> however patient is more drowsy/delirious with increase in narcotics -> dropped back to Dilaudid 2 mg PO q3 hour PRN Hemovac removed 12/10 PLAN: - Neurosurgery consulted, appreciate recommendations - Acute pain consulted, appreciate recommendations - Plan to remove Prevena per neuro spine recommendations Assessment & Plan (12/12/2024 1:53 PM EDT): MRI spine 11/28: see imaging read for complete list of results. In summary: New subacute severe compression fracture of T11 vertebral body, with 80% height loss and mild retropulsion. Severe compression fracture of T12 vertebral body, with mildly increased height loss and retropulsion, now with moderate canal narrowing and mild effacement of the lower thoracic cord without signal abnormality. OR with neuro spine surgery 12/03/24: T8-L3 PSIF, T12 partial corpectomy d/t T11 and T12 compressionfxs Acute Pain re-consulted 12/07 -> increased PO Dilaudid -> however patient is more drowsy/delirious with increase in narcotics -> dropped back to Dilaudid 2 mg PO q3 hour PRN Hemovac removed 12/10 PLAN: - Neurosurgery consulted, appreciate recommendations - Acute pain consulted, appreciate recommendations - Plan to remove Prevena per neuro spine recommendations Assessment & Plan (12/11/2024 1:05 PM EDT): MRI spine 11/28: see imaging read for complete list of results. In summary: New subacute severe compression fracture of T11 vertebral body, with 80% height loss and mild retropulsion. Severe compression fracture of T12 vertebral body, with mildly increased height loss and retropulsion, now with moderate canal narrowing and mild effacement of the lower thoracic cord without signal abnormality. OR with neuro spine surgery 12/03/24: T8-L3 PSIF, T12 partial corpectomy d/t T11 and T12 compressionfxs Acute Pain re-consulted 12/07 -> increased PO Dilaudid -> however patient is more drowsy/delirious with increase in narcotics -> dropped back to Dilaudid 2 mg PO q3 hour PRN Hemovac removed 12/10 PLAN: - Neurosurgery consulted, appreciate recommendations - Acute pain consulted, appreciate recommendations - Plan to remove Prevena per neuro spine recommendations Assessment & Plan (12/10/2024 12:50 PM EDT): MRI spine 11/28: see imaging read for complete list of results. In summary: New subacute severe compression fracture of T11 vertebral body, with 80% height loss and mild retropulsion. Severe compression fracture of T12 vertebral body, with mildly increased height loss and retropulsion, now with moderate canal narrowing and mild effacement of the lower thoracic cord without signal abnormality. OR with neuro spine surgery 12/03/24: T8-L3 PSIF, T12 partial corpectomy d/t T11 and T12 compressionfxs Acute Pain re-consulted 12/07 -> increased PO Dilaudid -> however patient is more drowsy/delirious with increase in narcotics -> dropped back to Dilaudid 2 mg PO q3 hour PRN Hemovac removed 12/10 PLAN: - Neurosurgery consulted, appreciate recommendations - Acute pain consulted, appreciate recommendations - Plan to remove Prevena tomorrow Assessment & Plan (12/09/2024 1:55 PM EDT): MRI spine 11/28: see imaging read for complete list of results. In summary: New subacute severe compression fracture of T11 vertebral body, with 80% height loss and mild retropulsion. Severe compression fracture of T12 vertebral body, with mildly increased height loss and retropulsion, now with moderate canal narrowing and mild effacement of the lower thoracic cord without signal abnormality. OR with neuro spine surgery 12/03/24: T8-L3 PSIF, T12 partial corpectomy d/t T11 and T12 compressionf[address] Acute Pain re-consulted 12/07 -> increased PO Dilaudid -> however patient is more drowsy/delirious with increase in narcotics -> dropped back to Dilaudid 2 mg PO q3 hour PRN PLAN: - Neurosurgery consulted, appreciate recommendations - Acute pain consulted, appreciate recommendations Assessment & Plan (12/08/2024 1:04 PM EDT): MRI spine 11/28: see imaging read for complete list of results. In summary: New subacute severe compression fracture of T11 vertebral body, with 80% height loss and mild retropulsion. Severe compression fracture of T12 vertebral body, with mildly increased height loss and retropulsion, now with moderate canal narrowing and mild effacement of the lower thoracic cord without signal abnormality. OR with neuro spine surgery 12/03/24: T8-L3 PSIF, T12 partial corpectomy d/t T11 and T12 [address] PLAN: - Neurosurgery consulted, appreciate recommendations - Acute pain consulted, appreciate recommendations -> re-consulted 12/07 -> increased PO Dilaudid -> however patient is more drowsy/delirious with increase in narcotics Assessment & Plan (12/07/2024 11:58 AM EDT): MRI spine 11/28: see imaging read for complete list of results. In summary: New subacute severe compression fracture of T11 vertebral body, with 80% height loss and mild retropulsion. Severe compression fracture of T12 vertebral body, with mildly increased height loss and retropulsion, now with moderate canal narrowing and mild effacement of the lower thoracic cord without signal abnormality. OR with neuro spine surgery 12/03/24: T8-L3 PSIF, T12 partial corpectomy d/t T11 and T12 [address] PLAN: - Neurosurgery consulted, appreciate recommendations - Acute pain consulted, appreciate recommendations -> re-consulted 12/07 -> increased PO Dilaudid Assessment & Plan (12/06/2024 3:19 PM EDT): MRI spine 11/28: see imaging read for complete list of results. In summary: New subacute severe compression fracture of T11 vertebral body, with 80% height loss and mild retropulsion. Severe compression fracture of T12 vertebral body, with mildly increased height loss and retropulsion, now with moderate canal narrowing and mild effacement of the lower thoracic cord without signal abnormality. OR with neuro spine surgery 12/03/24: T8-L3 PSIF, T12 partial corpectomy d/t T11 and T12 [address] PLAN: - Neurosurgery consulted, appreciate recommendations - Acute pain consulted, appreciate recommendations -> re-consulted today Assessment & Plan (12/05/2024 2:24 PM EDT): MRI spine 11/28: see imaging read for complete list of results. In summary: New subacute severe compression fracture of T11 vertebral body, with 80% height loss and mild retropulsion. Severe compression fracture of T12 vertebral body, with mildly increased height loss and retropulsion, now with moderate canal narrowing and mild effacement of the lower thoracic cord without signal abnormality. OR with neuro spine surgery 12/03/24: T8-L3 PSIF, T12 partial corpectomy d/t T11 and T12 [address] PLAN: - Neurosurgery consulted, appreciate recommendations - Acute pain consulted, appreciate recommendations Assessment & Plan (12/04/2024 3:04 PM EDT): MRI spine 11/28: see imaging read for complete list of results. In summary: New subacute severe compression fracture of T11 vertebral body, with 80% height loss and mild retropulsion. Severe compression fracture of T12 vertebral body, with mildly increased height loss and retropulsion, now with moderate canal narrowing and mild effacement of the lower thoracic cord without signal abnormality. OR with neuro spine surgery 12/03/24: T8-L3 PSIF, T12 partial corpectomy d/t T11 and T12 [address] PLAN: - Neurosurgery consulted, recommending Acute pain management, consulted. Assessment & Plan (12/03/2024 1:24 PM EDT): MRI spine 11/28: see imaging read for complete list of results. In summary: New subacute severe compression fracture of T11 vertebral body, with 80% height loss and mild retropulsion. Severe compression fracture of T12 vertebral body, with mildly increased height loss and retropulsion, now with moderate canal narrowing and mild effacement of the lower thoracic cord without signal abnormality. PLAN: - Neurosurgery consulted, appreciate recommendations - plan for OR today. Currently NPO. Patient cleared for spine surgery from a Liver transplant perspective. - D/c gabapentin - pt and think the delirium started when Gabapentin was started. Will stop and monitor symptoms. Assessment & Plan (12/02/2024 11:57 AM EDT): MRI spine 11/28: see imaging read for complete list of results. In summary: New subacute severe compression fracture of T11 vertebral body, with 80% height loss and mild retropulsion. Severe compression fracture of T12 vertebral body, with mildly increased height loss and retropulsion, now with moderate canal narrowing and mild effacement of the lower thoracic cord without signal abnormality. PLAN: - Neurosurgery consulted, appreciate recommendations - plan for OR tomorrow. NPO at midnight. Patient cleared for spine surgery from a Liver transplant perspective. - Increase Gabapentin to 200 mg TID, Assessment & Plan (11/29/2024 2:01 PM EDT): MRI spine 11/28: see imaging read for complete list of results. In summary: New subacute severe compression fracture of T11 vertebral body, with 80% height loss and mild retropulsion. Severe compression fracture of T12 vertebral body, with mildly increased height loss and retropulsion, now with moderate canal narrowing and mild effacement of the lower thoracic cord without signal abnormality. PLAN: - Neurosurgery consulted, appreciate recommendations - Start Gabapentin 100 mg TID, can increase as needed Hepatic uylatlgzivmvoz79/09/2025Incisional hernia without mention of obstruction or [id number]/22/6175Uwtjcujnpnkv85/12/2013GERD (gastroesophageal reflux disease)11/26/2012 Assessment & Plan (10/29/2024 12:49 PM EDT): [...] continue pepcid BID continue protonix BID [place]'s jrixmyafl68/12/2013HTN (hypertension)11/26/2012Hx of colonic polyps Resolved Problems ProblemNoted DateDiagnosed DateResolved [id number] Assessment & Plan (01/12/2025 1:34 PM EDT): Improved s/p filgrastim WBC WNL PLAN: - CBC w diff daily Assessment & Plan (01/09/2025 2:14 PM EDT): Improved s/p filgrastim WBC WNL PLAN: - CBC w diff daily Assessment & Plan (01/08/2025 1:43 PM EDT): Improved s/p filgrastim WBC 9.76 today PLAN: - CBC w diff daily Assessment & Plan (01/07/2025 2:14 PM EDT): Improved s/p filgrastim WBC 10.22 today PLAN: - CBC w diff daily Assessment & Plan (01/06/2025 7:44 PM EDT): Improved s/p filgrastim WBC 10.78 today PLAN: - CBC w diff daily Assessment & Plan (01/03/2025 12:53 PM EDT): Improved s/p filgrastim WBC 11.83 today PLAN: - CBC w diff daily Assessment & Plan (01/02/2025 2:07 PM EDT): Improved s/p filgrastim WBC 11.48 today PLAN: - CBC w diff daily Assessment & Plan (01/01/2025 2:36 PM EDT): Improved s/p filgrastim WBC 8.02 today PLAN: - CBC w diff daily Assessment & Plan (12/31/2024 12:04 PM EDT): Improved s/p filgrastim WBC 3.84 today PLAN: - CBC w diff daily Assessment & Plan (12/30/2024 12:57 PM EDT): Persistent leukopenia WBC 1.3 PLAN: - CBC w diff daily - Continue filgrastim daily until leukopenia improves - [place] Assessment & Plan (12/27/2024 1:25 PM EDT): Persistent leukopenia WBC 0.28 Not responding to filgrastim PLAN: - CBC w diff daily - Continue filgrastim daily until leukopenia improves - [place] Aspiration pneumonia due to gastric [id number] ueknpcxfkd45Sinus [id number] hypoxic respiratory /ompression fracture of T11 vertebra /History of recent fall/t risk for msxwxhi38/Incontinence of feces with fecal bloirma4711/27/2024 12/03/2024ltered mental nuxwki03/hest pain on breathing Assessment & Plan (10/25/2024 1:55 PM EDT): Assessment: CXR 6/30 Moderate right pleural effusion is noted, possibly redistributed. Also noted is small left pleural effusion. There is central pulmonary venous congestion without overt edema. Patchy opacities are noted at the lung bases, likely related to atelectasis. No definite pneumothorax is noted. EKG 6/30-NSR EKG 6/30-NSR with PVCs HsTnT- 79>80>89 BNP is 615 ECHO 6/7 with EF of 55% ECHO 7/3: - The left ventricle is normal in size. Left ventricular systolic function is normal. EF = 55 ?? 5%(visual est.) - Aortic sclerosis. - Exam was [...] definite pneumothorax is noted. EKG 6/30-NSR EKG 6/30-NSR with PVCs HsTnT- 79>80>89 BNP is 615 ECHO 6/7 with EF of 55% ECHO 7/3: - The left ventricle is normal in size. Left ventricular systolic function is normal. EF = 55 ?? 5%(visual est.) - Aortic sclerosis. - Exam was [...] function is normal. EF = 55 ?? 5%(visual est.) - Aortic sclerosis. - Exam was [...] function is normal. EF = 55 ?? 5%(visual est.) - Aortic sclerosis. - Exam was [...] definite pneumothorax is noted. EKG 6/30-NSR EKG 6/30-NSR with PVCs HsTnT- 79>80>89 BNP is 615 ECHO 6/7 with EF of 55% ECHO 7/3: - The left ventricle is normal in size. Left ventricular systolic function is normal. EF = 55 ?? 5%(visual est.) - Aortic sclerosis. - Exam was compared with the prior [facility] echocardiographic exam performed on 09/21/2024. Right pleural effusion seen. Plan: continue to monitor tessalon perles TID for coughing robitussin as needed for coughing Assessment & Plan (10/20/2024 11:04 AM EDT): Assessment: CXR 6 Moderate right pleural effusion is noted, possibly redistributed. Also noted is small left pleural effusion. There is central pulmonary venous congestion without overt edema. Patchy opacities are noted at the lung bases, likely related to atelectasis. No definite pneumothorax is noted. EKG 30-NSR EKG 630-NSR with PVCs HsTnT- 79>80>89 BNP is 615 ECHO 6/ with EF of 55% ECHO 10/17: - The left ventricle is normal in size. Left ventricular systolic function is normal. EF = 55 ?? 5%(visual est.) - Aortic sclerosis. - Exam was compared with the prior [facility] echocardiographic exam performed on 09/21/2024. Right pleural effusion seen. Plan: continue to monitor tessalon perles TID for couging robitussin as needed for coughing Assessment & Plan (10/19/2024 12:50 PM EDT): Assessment: CXR 6 Moderate right pleural effusion is noted, possibly [...] function is normal. EF = 55 ?? 5%(visual est.) - Aortic sclerosis. - Exam was [...] function is normal. EF = 55 ?? 5%(visual est.) - Aortic sclerosis. - Exam was [...] robitussin as needed for coughing repeat ECHO Acute kidney [id number] Assessment & Plan (12/27/2024 1:22 PM EDT): Baseline creatinine ~0.9-1.3, previous Katie perioperatively 2024 Cr peaked at 1.83 on 11/24, now improving Pre renal features and recent contrast load Hyponatremia normalized Plan Trend renal function Consulted nephrology, appreciate recommendations. Signed off 11/26 Assessment & Plan (12/26/2024 3:51 PM EDT): Baseline creatinine ~0.9-1.3, previous Katie perioperatively 2024 Cr peaked at 1.83 on 11/24, now improving Pre renal features and recent contrast load Hyponatremia normalized Plan Trend renal function Consulted nephrology, appreciate recommendations. Signed off 11/26 Assessment & Plan (12/23/2024 12:44 PM EDT): Baseline creatinine ~0.9-1.3, previous Katie perioperatively 2024 Cr peaked at 1.83 on 11/24, now improving Pre renal features and recent contrast load Hyponatremia normalized Plan Trend renal function Consulted nephrology, appreciate recommendations. Signed off 11/26 Assessment & Plan (12/20/2024 11:16 AM EDT): Baseline creatinine ~0.9-1.3, previous Katie perioperatively 2024 Cr peaked at 1.83 on 11/24, now improving Pre renal features and recent contrast load Hyponatremia normalized Plan Trend renal function Consulted nephrology, appreciate recommendations. Signed off 11/26 Assessment & Plan (12/19/2024 4:50 PM EDT): Baseline creatinine ~0.9-1.3, previous Katie perioperatively 2024 Cr peaked at 1.83 on 11/24, now improving Pre renal features and recent contrast load Hyponatremia normalized Plan Trend renal function Consulted nephrology, appreciate recommendations. Signed off 11/26 Assessment & Plan (12/18/2024 12:04 PM EDT): Baseline creatinine ~0.9-1.3, previous Katie perioperatively 2024 Cr peaked at 1.83 on 11/24, now improving Pre renal features and recent contrast load Hyponatremia normalized Plan Trend renal function Consulted nephrology, appreciate recommendations. Signed off 11/26 Assessment & Plan (12/12/2024 1:54 PM EDT): Baseline creatinine ~0.9-1.3, previous Katie perioperatively 2024 Cr peaked at 1.83 on 11/24, now improving Pre renal features and recent contrast load Hyponatremia normalized Plan Trend renal function Consulted nephrology, appreciate recommendations. Signed off 11/26 Assessment & Plan (12/11/2024 1:06 PM EDT): Baseline creatinine ~0.9-1.3, previous Katie perioperatively 2024 Cr peaked at 1.83 on 11/24, now improving Pre renal features and recent contrast load Hyponatremia normalized Plan Trend renal function Consulted nephrology, appreciate recommendations. Signed off 11/26 Assessment & Plan (12/10/2024 12:51 PM EDT): Baseline creatinine ~0.9-1.3, previous Katie perioperatively 2024 Cr peaked at 1.83 on 11/24, now improving Pre renal features and recent contrast load Hyponatremia normalized Plan Trend renal function Consulted nephrology, appreciate recommendations. Signed off 11/26 Assessment & Plan (12/09/2024 2:16 PM EDT): Baseline creatinine ~0.9-1.3, previous Katie perioperatively 2024 Cr peaked at 1.83 on 11/24, now improving Pre renal features and recent contrast load Hyponatremia normalized Plan Trend renal function Consulted nephrology, appreciate recommendations. Signed off 11/26 Assessment & Plan (12/08/2024 1:04 PM EDT): Baseline creatinine ~0.9-1.3, previous Katie perioperatively 2024 Cr peaked at 1.83 on 11/24, now improving Pre renal features and recent contrast load Hyponatremia normalized Plan Trend renal function Consulted nephrology, appreciate recommendations. Signed of 11/26 Assessment & Plan (12/07/2024 11:58 AM EDT): Baseline creatinine ~0.9-1.3, previous Katie perioperatively 2024 Cr peaked at 1.83 on 11/24, now improving Pre renal features and recent contrast load Hyponatremia normalized Plan Trend renal function Consulted nephrology, appreciate recommendations. Signed of 11/26 Assessment & Plan (12/06/2024 3:19 PM EDT): Baseline creatinine ~0.9-1.3, previous Katie perioperatively 2024 Cr peaked at 1.83 on 11/24, now improving Pre renal features and recent contrast load Hyponatremia normalized Plan Trend renal function Consulted nephrology, appreciate recommendations. Signed of 11/26 Assessment & Plan (12/05/2024 2:25 PM EDT): Baseline creatinine ~0.9-1.3, previous Katie perioperatively 2024 Cr peaked at 1.83 on 11/24, now improving Pre renal features and recent contrast load Hyponatremia normalized Plan Trend renal function Consulted nephrology, appreciate recommendations. Signed of 11/26 Assessment & Plan (12/04/2024 3:05 PM EDT): Baseline creatinine ~0.9-1.3, previous Katie perioperatively 2024 Cr peaked at 1.83 on 11/24, now improving Pre renal features and recent contrast load Hyponatremia normalized Plan Trend renal function Consulted nephrology, appreciate recommendations. Signed of 11/26 Assessment & Plan (12/03/2024 1:30 PM EDT): Baseline creatinine ~0.9-1.3, previous Katie perioperatively 2024 Cr peaked at 1.83 on 11/24, now improving Pre renal features and recent contrast load Hyponatremia normalized Plan Trend renal function Consulted nephrology, appreciate recommendations. Signed of 11/26 Assessment & Plan (12/02/2024 11:56 AM EDT): Baseline creatinine ~0.9-1.3, previous Katie perioperatively 2024 Cr peaked at 1.83 on 11/24, now improving Pre renal features and recent contrast load Hyponatremia normalized Plan Trend renal function Consulted nephrology, appreciate recommendations. Signed of 11/26 Assessment & Plan (11/29/2024 1:51 PM EDT): Baseline creatinine ~0.9-1.3, previous Katie perioperatively 2024 Cr peaked at 1.83 on 11/24, now improving Pre renal features and recent contrast load Hyponatremia normalized Plan Trend renal function Consulted nephrology, appreciate recommendations. Signed of 11/26 Assessment & Plan (11/28/2024 11:36 AM EDT): Baseline creatinine ~0.9-1.3, previous Katie perioperatively 2024 Cr peaked at 1.83 on 11/24, now improving Pre renal features and recent contrast load Hyponatremia normalized Plan Trend renal function Consulted nephrology, appreciate recommendations. Signed of 11/26 Assessment & Plan (11/27/2024 4:40 PM EDT): Baseline creatinine ~0.9-1.3, previous Katie perioperatively 2024 Cr peaked at 1.83 on 11/24, now improving Pre renal features and recent contrast load Hyponatremia normalized Plan Trend renal function Consulted nephrology, appreciate recommendations Assessment & Plan (11/26/2024 12:17 PM EDT): Baseline creatinine ~0.9-1.3, previous Katie perioperatively 2024 Currently BUN 14 creatinine 1.48 (improving) Pre renal features and recent contrast load Hyponatremia improving (134) Plan Trend renal function Consulted nephrology, appreciate recommendations Assessment & Plan (11/25/2024 1:20 PM EDT): Baseline creatinine ~0.9-1.3, previous Katie perioperatively 2024 Currently BUN 19 creatinine 1.77>1.83>1.62 Pre renal features and recent contrast load Hyponatremia worsened to 126 on 11/24 Plan Trend renal function Consulted nephrology, appreciate recommendations Assessment & Plan (11/24/2024 1:56 PM EDT): Baseline creatinine ~0.9-1.3, previous Katie perioperatively 2024 Currently BUN 19 creatinine 1.77>1.83 Hyponatremia worsening Plan Trend renal function Send urine lytes Consulted nephrology, appreciate recommendations Lasix 80 mg IV x1 renal function every 12 hours Assessment & Plan (11/23/2024 1:36 PM EDT): Baseline creatinine ~0.9-1.3, previous Katie perioperatively 2024 Currently BUN 18, creatinine 1.77 Hyponatremia 128 today, trending down Plan Trend renal function Send urine lytes Consult nephrology Vljlcdqv41/24/366165/09/2024 Assessment & Plan (10/22/2024 4:36 PM EDT): [...] check Ova/parasites, stool panel and c diff Other acute postoperative pain/06/2024 Assessment & Plan (09/28/2024 4:23 PM EDT): [...] Plan: - Pain management per ICU team Liver transplant jzdhtjjyp22 Assessment & Plan (10/29/2024 12:49 PM EDT): Assessment: 09/09/24 DCD OLT (pumped with organox), piggyback transplant, PV main to main, sMSG-SaH-cCLI-GDA, duct to duct (running), transdiaphragmatic drainage of [...] organox), piggyback transplant, PV main to main, iOBJ-OtH-rMIC-GDA, duct to duct (running), transdiaphragmatic drainage of [...] organox), piggyback transplant, PV main to main, cHMQ-KcM-gMKI-GDA, duct to duct (running), transdiaphragmatic drainage of [...] organox), piggyback transplant, PV main to main, nQUH-ZpF-wZZH-GDA, duct to duct (running), transdiaphragmatic drainage of [...] CT abdomen w/o any acute processes KUB /5: Bowel gas pattern: Mildly dilated colon with [...] organox), piggyback transplant, PV main to main, yBFM-KhM-wOVK-GDA, duct to duct (running), transdiaphragmatic drainage of [...] CT abdomen w/o any acute processes KUB 7/5: Bowel gas pattern: Mildly dilated colon with [...] organox), piggyback transplant, PV main to main, aMXC-UhI-wNAA-GDA, duct to duct (running), transdiaphragmatic drainage of [...] organox), piggyback transplant, PV main to main, dMCB-DsE-nPUH-GDA, duct to duct (running), transdiaphragmatic drainage of [...] organox), piggyback transplant, PV main to main, xCMM-PmV-qKNU-GDA, duct to duct (running), transdiaphragmatic drainage of [...] organox), piggyback transplant, PV main to main, kVIC-GxP-mIRZ-GDA, duct to duct (running), transdiaphragmatic drainage of [...] organox), piggyback transplant, PV main to main, tCBL-EaT-zJTR-GDA, duct to duct (running), transdiaphragmatic drainage of [...] organox), piggyback transplant, PV main to main, eDNA-HrG-cENI-GDA, duct to duct (running), transdiaphragmatic drainage of [...] organox), piggyback transplant, PV main to main, jKRG-XxA-oQHD-GDA, duct to duct (running), transdiaphragmatic drainage of [...] organox), piggyback transplant, PV main to main, dIMF-IjH-wWIR-GDA, duct to duct (running), transdiaphragmatic drainage of [...] organox), piggyback transplant, PV main to main, mHQX-UfR-rTRL-GDA, duct to duct (running), transdiaphragmatic drainage of [...] organox), piggyback transplant, PV main to main, tPTS-JkU-hIHT-GDA, duct to duct (running), transdiaphragmatic drainage of [...] organox), piggyback transplant, PV main to main, iYIR-PsD-aFDG-GDA, duct to duct (running), transdiaphragmatic drainage of [...] organox), piggyback transplant, PV main to main, kVZB-SkS-aYNP-GDA, duct to duct (running), transdiaphragmatic drainage of right hepatic hydrothorax, takedown of omental adhesions (>30mins) CT brain 10/07- no acute changes LVUS /24-patent liver vasculature, CBD wall thickening containing debris. Recommend further evaluation with MR pancreas/biliary. Plan: monitor liver function daily regular diet prophylaxis with bactrim PT and OT consult monitor mental status Order ERCP for Monday Assessment & Plan (10/12/2024 2:01 PM EDT): Assessment: 09/09/24 DCD OLT (pumped with organox), piggyback transplant, PV main to main, iROM-TjT-bGSW-GDA, duct to duct (running), transdiaphragmatic drainage of right hepatic hydrothorax, takedown of omental adhesions (>30mins) CT brain 10/07- no acute changes LVUS 6/24-patent liver vasculature, CBD wall thickening containing debris. Recommend further evaluation with MR pancreas/biliary. Plan: monitor liver function daily regular diet prophylaxis with bactrim PT and OT consult monitor mental status Assessment & Plan (10/11/2024 3:38 PM EDT): Assessment: 09/09/24 DCD OLT (pumped with organox), piggyback transplant, PV main to main, kRWC-RhT-aVHN-GDA, duct to duct (running), transdiaphragmatic drainage of right hepatic hydrothorax, takedown of omental adhesions (>30mins) CT brain 10/07- no acute changes LVUS 6/24-patent liver vasculature, CBD wall thickening containing debris. Recommend further evaluation with MR pancreas/biliary. Plan: monitor liver function daily regular diet prophylaxis with bactrim PT and OT consult monitor mental status Assessment & Plan (10/10/2024 5:02 PM EDT): Assessment: 09/09/24 DCD OLT (pumped with organox), piggyback transplant, PV main to main, vSZW-LsT-aDOK-GDA, duct to duct (running), transdiaphragmatic drainage of [...] organox), piggyback transplant, PV main to main, qOTL-IpM-oYEQ-GDA, duct to duct (running), transdiaphragmatic drainage of [...] organox), piggyback transplant, PV main to main, sZKN-LlO-pORG-GDA, duct to duct (running), transdiaphragmatic drainage of right hepatic hydrothorax, takedown of omental adhesions (>30mins) CT brain 10/07- no acute changes LVUS 10/08-patent liver vasculature, CBD wall thickening containing debris. Recommend further evaluation with MR pancreas/biliary. Plan: monitor liver function daily regular diet prophylaxis with acyclovir and bactrim monitor CMV DNA weekly PT and OT consult monitor mental status Acute postoperative pulmonary /26/202509/08/2024 Assessment & Plan (09/28/2024 4:20 PM EDT): [...] OOB, deep breathing - See pleural effusion KATIE (acute kidney injury)/ Assessment & Plan (10/10/2024 5:00 PM EDT): [...] Plan: monitor renal function monitor urine output Intraabdominal fluid wkkvfkgyij29 Assessment & Plan (01/12/2025 1:34 PM EDT): - see plan for liver transplant Assessment & Plan (01/07/2025 2:14 PM EDT): - see plan for liver transplant Assessment & Plan (12/23/2024 12:41 PM EDT): - see plan for liver transplant Assessment & Plan (12/20/2024 11:12 AM EDT): - see plan for liver transplant Assessment & Plan (12/19/2024 4:47 PM EDT): - see plan for liver transplant Assessment & Plan (12/18/2024 11:59 AM EDT): - see plan for liver transplant Assessment & Plan (12/12/2024 1:53 PM EDT): - see plan for liver transplant Assessment & Plan (12/11/2024 1:05 PM EDT): - see plan for liver transplant Assessment & Plan (12/10/2024 12:47 PM EDT): - see plan for liver transplant Assessment & Plan (12/09/2024 1:54 PM EDT): - see plan for liver transplant Assessment & Plan (12/08/2024 1:01 PM EDT): - see plan for liver transplant Assessment & Plan (12/07/2024 11:57 AM EDT): - see plan for liver transplant Assessment & Plan (12/06/2024 3:18 PM EDT): - see plan for liver transplant Assessment & Plan (12/05/2024 2:23 PM EDT): - see plan for liver transplant Assessment & Plan (12/04/2024 3:03 PM EDT): - see plan for liver transplant Assessment & Plan (12/03/2024 1:23 PM EDT): - see plan for liver transplant Assessment & Plan (12/02/2024 11:55 AM EDT): - see plan for liver transplant Assessment & Plan (11/29/2024 1:51 PM EDT): - see plan for liver transplant Assessment & Plan (11/28/2024 11:38 AM EDT): - see plan for liver transplant Assessment & Plan (11/27/2024 4:40 PM EDT): - see plan for liver transplant Assessment & Plan (11/26/2024 12:14 PM EDT): - see plan for liver transplant Encounters DateTypeDepartmentCare CosyZzzygezwtca66/22/2025[facility] [address] [address] Carina Ziegler RN Disorder of liver; Liver replaced by transplant (HCC)04/02/2025 Patient [facility] Transplant Center [address] [place], [place] [id number] Provider, Ccf 04/02/2025 Patient [facility] Transplant Center [address] [place], [place] [phone] Provider, Ccf 04/02/2025 Get Medical Advice Infectious Disease [address] [place] [address] Amanda Franz MD Ntbhjrer00/17/2025Orders Only Transplant Center [address] [place] [address] Carina Ziegler, RN Disorder of liver; Liver replaced by transplant (HCC)04/01/2025Results Follow-Up Transplant Center [address] [place], [place] [phone] Carina Ziegler, LEO 04/01/2025 Patient [facility] Transplant Center [address] [place], [place] [address] Carina Ziegler, RN checking in03/31/2025Orders Only Transplant Center [address] [place], [place] [address] Carina Ziegler, RN Disorder of liver; Liver replaced by transplant (HCC)03/28/2025 1:30 PM [facility] Infectious Disease [address] [place] [address] Amanda Franz MD Cytomegalovirus infection, unspecified cytomegaloviral infection type (HCC) (Primary Dx); Status post liver transplantation (HCC)03/28/2025 Patient [facility] Transplant Center [address] [place], [place] [phone] Provider, Ccf Action Required: Missing Lab Results in XxOrpwc21/11/2025Results Follow-Up Transplant Center [address] [place], [place] [address] Carina Ziegler, RN 03/27/2025Telephone Transplant Center [address] [place] [address] Carina Ziegler, RN Rx Refills (valcyte)03/27/2025Telephone [facility] [address] [phone] Amanda Franz MD 03/26/20254840Rebfrj43/10/2025 Patient Msg [facility] [address] [place] [address] Amanda Franz MD Visit03/26/2025 Get Medical Advice Transplant Center [address] [place], [place] [address] Carina Ziegler RN Distended pogvcyq2203/26/2025Orders Only Transplant Center [address] [place], [place] [address] Carina Ziegler, RN Disorder of liver; Liver replaced by transplant (HCC)03/24/2025Orders Only Transplant Center [address] [place], [place] [address] Carina Ziegler, RN Disorder of liver; Liver replaced by transplant (HCC)03/21/2025Results Follow-Up Transplant Center [address] [place], [place] [address] Carina Ziegler RN 03/19/2025Orders Only Transplant Center [address] [place], [place] [address] Carina Ziegler RN Disorder of liver; Liver replaced by transplant (HCC)03/18/2025 Patient Msg Transplant Center [address] [place], [place] [address] Carina Ziegler, RN Follow up anniversary questions...03/17/2025Orders Only Transplant Center [address] [place], [place] [address] Carina Ziegler, RN Disorder of liver; Liver replaced by transplant (HCC)03/15/2025 Get Medical Advice Transplant Center [address] [place] [address] Carina Ziegler RN Iccoqlau24/26/2025Orders Only Transplant Center [address] [place] [address] Carina Ziegler, RN Disorder of liver; Liver replaced by transplant (HCC)03/11/2025Results Follow-Up Transplant Center [address] [place], [place] [address] Eva Dhillon RN 03/10/2025 Patient [facility] Medical Records [address] [place] [address] Provider, Ccf Update for Our Medicare Patients Regarding Virtual Uvowty3203/10/2025Orders Only Transplant Center [address] [place] [address] Carina Ziegler RN Disorder of liver; Liver replaced by transplant (HCC)03/06/2025Refill Transplant Center [address] [place], [place] [address] Eva Dhillon, LEO Refill Request (Increase TAC 5/5)03/05/2025Orders Only Transplant Center [address] [place], [place] [address] Carina Ziegler RN Disorder of liver; Liver replaced by transplant (HCC)03/04/2025 Patient Cog Transplant Center [address] [place], [place] [address] Carina Ziegler RN out of the ovmqgo7703/04/2025Results Follow-Up Transplant Center [address] [place], [place] [address] Carina Ziegler RN 03/03/2025Orders Only Transplant Center [address] [place] [address] Carina Ziegler RN Disorder of liver; Liver replaced by transplant (HCC)02/28/2025Refill Transplant Center [address] [place], [place] [address] Carina Ziegler RN Rx Gncbsrh3302/28/2025Refill Transplant Center [address] [place] [address] Carina Ziegler RN Rx Refills (Inc fk 4/4)02/26/2025Refill Transplant Center [address] [place] [address] Carina Ziegler RN Refill Ytiiioa0602/26/2025Orders Only Transplant Center [address] [place] [address] Carina Ziegler RN Disorder of liver; Liver replaced by transplant (HCC)02/25/2025Results Follow-Up Transplant Center [address] [place] [address] Carina Ziegler RN 02/24/2025Orders Only Transplant Center [address] [place], [place] [address] Carina Ziegler, RN Disorder of liver; Liver replaced by transplant (HCC)02/20/2025Refill Transplant Center [address] [place], [place] [address] Carina Ziegler RN Refill Zumlnxn9702/20/2025Orders Only Transplant Center [address] [place], [place] [address] Carina Ziegler, RN Liver replaced by transplant (HCC) (Primary Dx)02/19/2025Orders Only Transplant Center [address] [place], [place] [address] Carina Ziegler RN Disorder of liver; Liver replaced by transplant (HCC)02/18/2025 1:00 PM [facility] Infectious Disease [address] [place] [address] Amanda Franz MD Cytomegalovirus infection, unspecified cytomegaloviral infection type (HCC) (Primary Dx); Status post liver transplantation (HCC)02/18/2025Results Follow-Up Transplant Center [address] [place], [place] [address] Carina Ziegler RN 02/17/2025Results Follow-Up Transplant Center [address] [place], [place] [address] Carina Ziegler RN 02/17/2025Orders Only Transplant Center [address] [place], [place] [address] Carina Ziegler RN Disorder of liver; Liver replaced by transplant (HCC)02/15/2025 Get Medical Advice Transplant Center [address] [place], [place] [address] Carina Ziegler RN Monday labs02/14/2025Telephone Transplant Center [address] [place], [place] [address] Coordinator, Liver Txp Return Call Aoihacw6502/14/2025Refill Transplant Center [address] [place] [address] Kathy Ryan APRN.IS PROJECT MANAGER Med Change Sfmexdu4402/14/2025 Patient Msg Transplant Center [address] [place] [address] Pharmacist, Transplant Medication Action Plan02/14/2025[facility] Transplant Center [address] [place] [address] Carina Ziegler, LEO 02/12/2025[facility] [address] [place] [address] Coordinator, Liver Txp Follow Up02/12/2025Patient Outreach Pulmonary Medicine [address] [place] [address] Beverly Fowler 02/11/2025[facility] Transplant Center [address] [place], [place] [address] Coordinator, Liver Txp Med Management; Rx Refills; Refill Scwlaxw7502/11/2025Results Follow-Up Transplant Center [address] [place], [place] [address] Carina Ziegler, LEO 02/11/2025[facility] [address] [place], [place] [address] Carina Ziegler, RN Missed Labs02/10/2025 11:06 AM EDTAnesthesia Event Gastroenterology [address] [phone] Jenn Whalen MD 02/10/2025 10:13 AM EDT - 02/10/2025 11:59 PM EDTHospital Encounter Gastroenterology [address] [phone] Jane Correia MD 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] Discharge Disposition: Home02/10/2025Orders Only Gastroenterology [address] [phone] Jane Correia MD Bile duct stricture (HCC) (Primary Dx)02/10/2025Orders Only Transplant Center [address] [place], [place] [address] Carina Ziegler, RN Disorder of liver; Liver replaced by transplant (HCC)02/05/2025Orders Only Transplant Center [address] [phone] Carina Ziegler RN Disorder of liver; Liver replaced by transplant (HCC)02/04/2025Refill Transplant Center [address] [place], [place] [address] Carina Ziegler RN Rx Refills (letermovir)02/04/2025 Get Medical Advice Transplant Center [address] [phone] Carina Ziegler RN Bills discharge to skilled dgzsems3802/03/2025 Patient Msg Gastroenterology [address] [place] [address] Provider, Ccf Procedure iyelluqopyoo45/20/2025 Preprocedure Call Gastroenterology [address] [place] [address] Steffany Ley RN 02/03/2025Orders Only Transplant Center [address] [place] [address] Carina Ziegler RN Disorder of liver; Liver replaced by transplant ([facility])01/31/2025Results Follow-Up Transplant Center [address] [place], [place] [address] Carina Ziegler RN 01/29/2025Orders Only Transplant Center [address] [place] [address] Carina Ziegler RN Disorder of liver; Liver replaced by transplant (HCC)01/28/2025 12:00 PM [facility] Infectious Disease [address] [place] [address] Amanda Franz MD Cytomegalovirus infection, unspecified cytomegaloviral infection type (HCC) (Primary Dx)01/28/2025Results Follow-Up Transplant Center [address] [place], [place] [address] Carina Ziegler RN 01/27/2025Results Follow-Up Transplant Center [address] [place], [place] [address] Carina Ziegler RN 01/27/2025Results Follow-Up Transplant Center [address] [address] Carina Ziegler, LEO 01/27/2025Results Follow-Up Transplant Center [address] [address] Carina Ziegler, RN 01/27/2025Lab Requisition [place] [facility] [address] [place] [address] Jonathan Cruz, 01/27/2025Orders Only Transplant Center [address] [address] Carina Ziegler, RN Disorder of liver; Liver replaced by transplant (HCC)01/26/2025Lab Requisition [place] [facility] [address] [place] [address] Betty iDas DO 01/25/2025Lab Requisition [facility] [address] [place] [address] Jonathan Cruz DO 01/24/2025 2:05 PM EDT - 01/24/2025 11:59 PM EDTHospital Encounter [facility] Scan [address] [place], [place] [phone] Discharge Disposition: Home01/24/20254845Aslkzi46/10/2025Lab Requisition [facility] [address] [place] [address] Jonathan Cruz DO 01/24/2025Lab Requisition [facility] [address] [place] [address] Jonathan Cruz DO 01/23/2025Results Follow-Up Transplant Center [address] [address] Carina Ziegler, LEO 01/23/2025 Patient Msg Medical Records [address] [place] [address] Provider, Ccf Important Notice for Our Medicare Patients Regarding Appointment Scheduling 01/23/2025Lab Requisition [facility] [address] [place] [address] Jonathan Cruz DO 01/22/2025Orders Only Transplant Center [address] [place], [place] [address] Carina Ziegler RN Disorder of liver; Liver replaced by transplant (HCC)01/20/2025Orders Only Transplant Center [address] [place] [address] Carina Ziegler RN Disorder of liver; Liver replaced by transplant (HCC)01/19/2025Lab Requisition [facility] [address] [phone] Alton Kim MD 01/17/2025Refill Transplant Center [address] [place] [address] Carina Ziegler RN Rx Refills (Lower fk 3/3)01/15/2025Results Follow-Up Transplant Center [address] [place], [place] [address] Carina Ziegler RN 01/15/2025Orders Only Transplant Center [address] [place], [place] [address] Carina Ziegler RN Disorder of liver; Liver replaced by transplant (HCC)01/14/2025 6:40 PM EDT - 02/04/2025 3:01 PM EDTHospital Encounter [address] [address] Jonathan Cruz DO 01/13/2025Orders Only Transplant Center [address] [place] [address] Carina Ziegler RN Disorder of liver; Liver replaced by transplant (HCC)01/08/2025Orders Only Transplant Center [address] [place] [address] Carina Ziegler RN Disorder of liver; Liver replaced by transplant (HCC)01/06/2025Orders Only Transplant Center [address] [place], [place] [address] Carina Ziegler RN Disorder of liver; Liver replaced by transplant (HCC)11/22/2024 1:05 AM EDT - 01/14/2025 6:00 PM EDTHospital Encounter [facility] G[facility] [address] [phone] Ольга Marques MD, PhD Burton Quezada MD Aucejo, Federico N, MD Schlegel, Andrea, MD Khalil, Mazhar, MD Kim, Jaekeun, MD, PhD Mateo Tiwari MD Pita, Alejandro, MD Metabolic encephalopathy [G93.41] Discharge Disposition: Acute Rehab (IRF)from Last 3 Months Immunizations ImmunizationAdministration DatesNext Duehepatitis A (HepA) vaccine, adult (HAVRIX, VAQTA)08/28/2024,05/02/2024hepatitis B (HepB-CpG) vaccine, adult, 2- dose series (HEPLISAV-B)08/28/2024,05/02/2024influenza (HD-IIV3) vaccine, age 65+ yr, high dose, trivalent, PF (FLUZONE HIGH-DOSE)03/04/2024,02/01/2022, 02/17/2021influenza (IIV3) vaccine, age 6 mo - 64 yr, trivalent (AFLURIA, FLULAVAL, FLUVIRIN, FLUZONE)02/01/2016,02/10/2015,01/14/2014influenza (IIV4) vaccine, age 6 mo - 64 yr, quadrivalent (AFLURIA, FLULAVAL, FLUZONE)02/10/2019, 02/13/2017influenza (IIV4) vaccine, age 6 mo - 64 yr, quadrivalent, PF (AFLURIA, FLUARIX, FLULAVAL, FLUZONE)02/10/2019influenza (IIV4) vaccine, quadrivalent (AFLURIA, FLULAVAL, FLUZONE)01/17/2017influenza (aIIV4) vaccine, age 65+ yr, quadrivalent, PF (FLUAD QUAD)01/24/2023influenza vaccine, unspecified pzthlxpayvw32/10/2023,02/01/2022,02/17/2021,01/23/2013pneumococcal conjugate (PCV20) vaccine, 20 valent (PREVNAR 20)03/04/2024espiratory syncytial virus (RSV) vaccine, adjuvanted (AREXVY)06/10/2024tetanus diphtheria pertussis (Tdap) vaccine, age 7+ yr (ADACEL, BOOSTRIX)03/22/2022zoster (RZV) vaccine, recombinant (SHINGRIX)04/30/2022zoster (ZVL) vaccine, live (ZOSTAVAX)03/24/2015 Family History Medical HistoryRelationCommentsCoronary Artery DiseaseFatherHeart FailureFather HypertensionFatherCOPDMotherCoronary Artery DiseaseMotherEmphysemaMother HypertensionMotherNoneSisterRelationStatusCommentsFatherAliveMotherDeceased Sister Social History Tobacco UseTypesPacks/DayYears UsedDateSmoking Tobacco: MumlfxZvxxadpiqo523 02/18/1971 - 02/18/1991Smokeless Tobacco: Never Tobacco Cessation:Counseling Given: Not Answered [...] homeless or living in a long-term (including now)?No11/25/2024HC UtilitiesAnswerDate RecordedIn the past 12 months has the electric, gas, oil, or water company threatened to shut off services in your home?No11/25/2024rea Deprivation IndexAnswerDate Recorded National Score (1-100), lower number is lower ecoy391804/25/2024State Score (1- 10), lower number is lower nvag83704/25/2024Data from: https://www.neighborhoodatlas.medicine.[employer].edu/. 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 on fileNot on fileNot on file Last Filed Vital Signs Vital SignReadingTime TakenCommentsBlood Mtvwxbjy399/7102/10/2025 12:30 PM EDT Tnqjx740302/10/2025 12:35 PM XBVTvefegmsosi65 ??C (96.8 ??F)02/10/2025 12:14 PM EDTRespiratory Vfuu7030 12:30 PM EDTOxygen Elkaemybkq94%02/10/2025 12:35 PM EDTInhaled Oxygen Concentration--Nbpksa01.6 kg (171 lb)02/10/2025 10:46 AM YPWTggixm238.3 cm (5' 9 )02/10/2025 10:46 AM EDTBody Mass Index25.251 10:46 AM EDT Plan of Treatment DateTypeDepartmentCare Team (Latest Contact Info)Ceozmfgwxov09/30/2025 11:15 AM ESTAppointment Radiology [address] [place] [address] post liver tx follow up04/15/2025 12:30 PM ESTOffice Visit Transplant Center [address] [id number] Kathy Ryan APRN.IS PROJECT MANAGER [address] [address] post liver tx follow up04/16/2025 1:30 [facility] [address] [place] [address] Amanda Franz MD [address] [place] [address] CMV Virtual Appt06/11/2025 1:00 PM ESTAppointment Gastroenterology [address] [address] Jane Correia MD [address] [place] [address] 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]Health MaintenanceDue DateLast DoneComments Abdominal Aortic Aneurysm Usdcohipq28/18/1954Annual PCP Team Chronic Disease Visit08/03/1971Anxiety Xfbqsdbpc92/18/1972Depression Agbeynnsa77/18/1972CT Tulgfxgghqme05/18/1999Cologuard (FIT-DNA)1998Fecal Occult Blood1998 Covid-19 Vaccine (3 - Moderna risk series)/01/2021, 05/27/2020 Shingrix Vaccine (2 of 2)/, 03/24/2015dvance Directive Noybzozklo02/01/2025Medicare Advantage Annual Wellness Visit04/17/2024Influenza Vaccine (#1)/, 01/24/2023, 01/24/2023, Additional history existsHepatitis A Vaccine (2 of 2 - Risk 2-dose series)/, 05/02/2024Serum Ucnrqsqodz54, 03/24/2025, 03/17/2025, Additional history existsDiabetes Akhhbhpbp22, 03/24/2025, 03/17/2025, Additional history umtdaaThzjmrahbdk00, 08/08/2019, 08/12/2014, Additional history existsColorectal Cancer Screening 08/31/20294968Drlneqiqcvagr05Lipid Aacyuyemd54/07/2024, 04/29/2024, 02/20/2024, Additional history existsDTaP,Tdap,Td Vaccine (2 - Td or Tdap)neumococcal Vaccine: 50+Fzhviclmt35/18/2024RSV PrgfhoeZvtmwksls72/24/2025Hepatitis C WtwebfbcpZhyyiktrr73/01/2025, 09/08/2024, 09/08/2024, Additional history exists Goals GoalPatient Goal TypeAssociated ProblemsRecent ProgressPatient-Stated?Author Blood Pressure < 130/80 Blood Wsnhqbfi506/71(02/10/2025 12:30 PM EDT)Vanessa Kulkarni MD Medical Devices ImplantedTypeAreaManufacturerDevice IdentifierShelf Expiration DateModel / Serial / LotGraft Infuse 20ga Medium Bovine Collagen Rhbmp-2 2x1in Bone Vial Absorbable - [id number] Implanted:Qty: 1 on 12/03/2024 by Omer Sinha MD at [facility] N/A: BackHospicelink SOFAMOR [id number] / / [id number] Bone Sub 10cc Dbm Putty Inert Reverse Phase Carrier Osteosparx - [id number] Implanted:Qty: 1 on 12/03/2024 by Omer Sinha MD at [facility] N/A: AnSyn [id number] / [id number] / [id number] Bone 30cc 1mm-4mm Range Granules Cancellous Crushed - [id number] Implanted:Qty: 1 on 12/03/20[facility] N/A: AnSyn LLC09/28/[id number] / [id number] / [id number] Erica 3 Titanium Set Nikunj Spine - [id number] Implanted:Qty: 12 on [facility]03/20[facility]: Spine - Lumbar KAROLINA [id number] / / Mesh Srg Parietex 15cm Vntrl - [id number] Implanted:Qty: 1 on 03/04/2014 [facility]: UmbilicalCOVIDIEN USMO06/04/2018PCO15X / / [id number]:parietex composite meshRod Erica 3 6mm 480mm Spinal - [id number] Implanted:Qty: 2 on [facility]03[facility]20[facility]: Spine - LumbarSTRYKER [id number] / / ScrewScrewRight: Bone - ElbowScrew Erica 3 Gamez 6.5mm 50mm Bone Polyaxial Nonsterile Spine - [id number] [facility]:Q[facility] - Thoracic KARLOINA [id number] / / Screw Erica 3 Gamez 7.5mm 50mm Bone Polyaxial Nonsterile Spine - [id number] Implanted:Qty: 2 [facility] Sp[facility] - Thoracic KAROLINA [id number] / / Screw Erica 3 Gamez 8.5mm 50mm Bone Polyaxial Nonsterile Spine Implanted:Qty: 4 [facility]: Spine - Lumbar [id number] / / Screw Erica 3 Gmaez 9.5mm 50mm Bone Polyaxial Nonsterile Spine Implanted:Qty: 2 on 12/03/2024 at [facility]/A: Spine - Lumbar [id number] / / Stent Sentinel Viabil 10mm Metal 100mm 200cm Endoprosthesis No Hole Full Cover - [id number] Implanted:Qty: 1 on 10/15/2024 [facility] Q BUILDINGStentW L GORE & [id number] / / Description:Static magnetic field of 1.5 and 3.0 Rosita ?? Maximum spatial gradient of 3,000 Gauss/cm ?? MaximumMR system reported, whole body averaged specific absorption rate (MARTA) of 4 W/kgStent 10fr Duodenal Bend Plastic 12cm Biliary Temporary Rapid Exchange - [id number] Implanted:Qty: 1 on 12/19/20[facility]INGStentN/A: Bile DuctMCLEAN SOUTHEAST YRGUPFAVB63/08/[id number] / / [id number] 10fr Duodenal Bend Plastic 12cm Biliary Temporary Rapid Exchange - [id number] Implanted:Qty: 1 on 02/10/2025 [facility] BUILDINGStentN/A: Bile DuctMCLEAN SOUTHEAST AOIFVQEDQ18/07/[id number] / / [id number] Cotton-Marti 7fr Purple Polyethylene 12cm Biliary Tapered Tip Soft - [id number] Implanted:Qty: 1 [facility]/A: Bile Duct [facility] QWTFJLBVH59/24/[id number] / / [id number] Procedures Procedure NamePriorityDate/TimeAssociated DiagnosisCommentsCYTOMEGALOVIRUS (CMV) DNA, QUANTITATIVE PCR, TXSGKWBaadrwq39/15/2025 9:07 AM EST Liver replaced by transplant (HCC) TACROLIMUS/FK-506 GWJygepfu47/15/2025 9:07 AM EST Disorder of liver Liver replaced by transplant (HCC) PHOSPHORUS PFJGDZKHUKexvgyd22/15/2025 9:07 AM EST Disorder of liver Liver replaced by transplant (HCC) MAGNESIUM YCYNycwxzx38/15/2025 9:07 AM EST Disorder of liver Liver replaced by transplant (HCC) GGT ALOHgujzha42/15/2025 9:07 AM EST Disorder of liver Liver replaced by transplant (HCC) COMPREHENSIVE METABOLIC TCSNDPxjlfch97/15/2025 9:07 AM EST Disorder of liver Liver replaced by transplant (HCC) CBC + RMZYPlyffgu28/15/2025 9:07 AM EST Disorder of liver Liver replaced by transplant (HCC) CYTOMEGALOVIRUS (CMV) DNA, QUANTITATIVE PCR, AQPRTDCbybyfu54/08/2025 8:45 AM EST Liver replaced by transplant (HCC) TACROLIMUS/FK-506 UHTpwllge47/08/2025 8:45 AM EST Disorder of liver Liver replaced by transplant (HCC) PHOSPHORUS SVLZPCXLKUlhjrdd03/08/2025 8:45 AM EST Disorder of liver Liver replaced by transplant (HCC) MAGNESIUM QRJAgqagct32/08/2025 8:45 AM EST Disorder of liver Liver replaced by transplant (HCC) GGT OWAPifylco42/08/2025 8:45 AM EST Disorder of liver Liver replaced by transplant (HCC) COMPREHENSIVE METABOLIC ZCUROJyzzqgw52/08/2025 8:45 AM EST Disorder of liver Liver replaced by transplant (HCC) CBC + MSKEPxluswb52/08/2025 8:45 AM EST Disorder of liver Liver replaced by transplant (HCC) CYTOMEGALOVIRUS (CMV) DNA, QUANTITATIVE PCR, VQMKDPXqeeaor51/01/2025 8:02 AM EST Liver replaced by transplant (HCC) TACROLIMUS/FK-506 HRYwwdxqv65/01/2025 8:02 AM EST Disorder of liver Liver replaced by transplant (HCC) PHOSPHORUS CJOGXHMAOXkmuoji93/01/2025 8:02 AM EST Disorder of liver Liver replaced by transplant (HCC) MAGNESIUM WLLOrvwyaa31/01/2025 8:02 AM EST Disorder of liver Liver replaced by transplant (HCC) GGT VVYEqppntw04/01/2025 8:02 AM EST Disorder of liver Liver replaced by transplant (HCC) COMPREHENSIVE METABOLIC WIHVQQlharxk22/01/2025 8:02 AM EST Disorder of liver Liver replaced by transplant (HCC) CBC + OIPBOkvjlzr65/01/2025 8:02 AM EST Disorder of liver Liver replaced by transplant (HCC) DRUG MONITORING MZAOWXUIFviogyl27/24/2025 8:18 AM EST PHOSPHATIDYLETHANOL (PETH)Jcsftra8403/10/2025 8:18 AM EST Disorder of liver Liver replaced by transplant (HCC) TACROLIMUS/FK-506 QCHtuwjpk69/24/2025 8:18 AM EST Disorder of liver Liver replaced by transplant (HCC) PHOSPHORUS TWQNMZMVBYaobahq79/24/2025 8:18 AM EST Disorder of liver Liver replaced by transplant (HCC) MAGNESIUM DDZOaxrwqh84/24/2025 8:18 AM EST Disorder of liver Liver replaced by transplant (HCC) GGT BIEEhvcbwk64/24/2025 8:18 AM EST Disorder of liver Liver replaced by transplant (HCC) COMPREHENSIVE METABOLIC KVSVYBpfsmkx96/24/2025 8:18 AM EST Disorder of liver Liver replaced by transplant (HCC) CBC + WHMRXtcyvrq27/24/2025 8:18 AM EST Disorder of liver Liver replaced by transplant (HCC) CYTOMEGALOVIRUS (CMV) DNA, QUANTITATIVE PCR, SRSZCHUnwmxnm27/17/2025 8:03 AM EST Liver replaced by transplant (HCC) TACROLIMUS/FK-506 UZFmgkscr64/17/2025 8:03 AM EST Disorder of liver Liver replaced by transplant (HCC) PHOSPHORUS LTCKAMBQHSiwglcn22/17/2025 8:03 AM EST Disorder of liver Liver replaced by transplant (HCC) MAGNESIUM GXACkzgymj48/17/2025 8:03 AM EST Disorder of liver Liver replaced by transplant (HCC) GGT YRKYkrvizi11/17/2025 8:03 AM EST Disorder of liver Liver replaced by transplant (HCC) COMPREHENSIVE METABOLIC WOTEQOcpxeel68/17/2025 8:03 AM EST Disorder of liver Liver replaced by transplant (HCC) CBC + XXYHGxdpfhs44/17/2025 8:03 AM EST Disorder of liver Liver replaced by transplant (HCC) TACROLIMUS/FK-506 EYOwzxrsi38/10/2025 9:00 AM EST Disorder of liver Liver replaced by transplant (HCC) CYTOMEGALOVIRUS (CMV) DNA, QUANTITATIVE PCR, QJTYZDFikeyek41/10/2025 9:00 AM EST Disorder of liver Liver replaced by transplant (HCC) PHOSPHORUS EPTEPOBXETjebulx15/10/2025 9:00 AM EST Disorder of liver Liver replaced by transplant (HCC) MAGNESIUM UIWDyclnrx15/10/2025 9:00 AM EST Disorder of liver Liver replaced by transplant (HCC) GGT UFYSulqmvv88/10/2025 9:00 AM EST Disorder of liver Liver replaced by transplant (HCC) COMPREHENSIVE METABOLIC EGNTQQhitndo42/10/2025 9:00 AM EST Disorder of liver Liver replaced by transplant (HCC) CBC + WMFSHmrpgpj52/10/2025 9:00 AM EST Disorder of liver Liver replaced by transplant (HCC) TACROLIMUS/FK-506 PTTrzujso15/03/2025 8:22 AM EST Disorder of liver Liver replaced by transplant (HCC) PHOSPHORUS ZSWDBDQELXzboegh92/03/2025 8:22 AM EST Disorder of liver Liver replaced by transplant (HCC) MAGNESIUM BQLOiupzsf06/03/2025 8:22 AM EST Disorder of liver Liver replaced by transplant (HCC) GGT KESHhxrvsq57/03/2025 8:22 AM EST Disorder of liver Liver replaced by transplant (HCC) COMPREHENSIVE METABOLIC VDWDRPbrgpnc66/03/2025 8:22 AM EST Disorder of liver Liver replaced by transplant (HCC) CBC + VMRFLkjialm34/03/2025 8:22 AM EST Disorder of liver Liver replaced by transplant (HCC) CMP (EXTERNAL)Ounfhqp5602/12/2025 4:13 AM EDT MAGNESIUM FUCGfrfdzw82/29/2025 4:13 AM EDT PHOSPHORUS OBFRRSFSUNerotfh32/29/2025 4:13 AM EDT CBC/DIFF (OUTSIDE UH)Hpmncte5302/12/2025 4:13 AM EDT GGT PRYKhvahdq09/29/2025 4:13 AM EDT HILKVJHTMXIvjswti97/27/2025 11:14 AM EDT IDNCGocsgvr68/27/2025 10:57 AM EDT Bile duct stricture (HCC) COMPREHENSIVE METABOLIC WGZDBQhqrjhj30/27/2025 10:02 AM EDT Liver transplant candidate ALPHA FETOPROTEIN RYPfdwndd47/27/2025 10:02 AM EDT Cirrhosis of liver without ascites, unspecified hepatic cirrhosis type (HCC) PROTHROMBIN OFEBLijyerg59/27/2025 10:02 AM EDT Cirrhosis of liver without ascites, unspecified hepatic cirrhosis type (HCC) MAGNESIUM BIIMoaoiti21/20/2025 4:48 AM EDT GGT BGLQtdfmvb52/20/2025 4:48 AM EDT C-REACTIVE PROTEIN (CRP)Jgoyijn2402/03/2025 4:48 AM EDT COMPREHENSIVE METABOLIC TXDNPYbtsnby71/20/2025 4:48 AM EDT CYTOMEGALOVIRUS (CMV) DNA, QUANTITATIVE PCR, VFUUWDVydiqhi88/20/2025 4:48 AM EDT CBC + ODHMIhmmmiw07/20/2025 4:48 AM EDT NT PRO ODNOnieiay99/20/2025 4:48 AM EDT TACROLIMUS/FK-506 HEXblcxux76/20/2025 4:48 AM EDT PHOSPHORUS DXOAZYRSAOalstvb65/20/2025 4:48 AM EDT XR CHEST 1V WCBLYUM9001/31/2025 12:03 PM EDT MAGNESIUM ETGVyqdokn10/16/2025 4:18 AM EDT GGT HGYSfrwykm63/16/2025 4:18 AM EDT C-REACTIVE PROTEIN (CRP)Dvtpcly1601/30/2025 4:18 AM EDT COMPREHENSIVE METABOLIC XDXSRAdxrcrk68/16/2025 4:18 AM EDT CBC + NIXCWdsltls63/16/2025 4:18 AM EDT NT PRO ACATtezioe73/16/2025 4:18 AM EDT TACROLIMUS/FK-506 RALjkrvxm38/16/2025 4:18 AM EDT PHOSPHORUS GVDOUUCYKPylnfts75/16/2025 4:18 AM EDT MAGNESIUM JOAIcqxhxx33/13/2025 5:33 AM EDT GGT AACIqkpsjs48/13/2025 5:33 AM EDT C-REACTIVE PROTEIN (CRP)Yftuptc0001/27/2025 5:33 AM EDT COMPREHENSIVE METABOLIC RPIMTAnsllgx02/13/2025 5:33 AM EDT CYTOMEGALOVIRUS (CMV) DNA, QUANTITATIVE PCR, MYFHJWGwvmoyk18/13/2025 5:33 AM EDT CBC + TKDPElijlvp63/13/2025 5:33 AM EDT NT PRO NATZjqyujf74/13/2025 5:33 AM EDT TACROLIMUS/FK-506 UQSriletv20/13/2025 5:33 AM EDT PHOSPHORUS DXOHNDFVDAapbjbo28/13/2025 5:33 AM EDT C-REACTIVE PROTEIN (CRP)Akxcvwt1001/26/2025 5:30 AM EDT CBC + YXWAXtfanfj40/12/2025 5:30 AM EDT LIPASE QYMJnhfvqy49/12/2025 5:30 AM EDT AMYLASE UTEMkugbym58/12/2025 5:30 AM EDT COMPLETE BLOOD KVZXDPeyhflg03/11/2025 5:53 AM EDT URINALYSIS (WITH MICROSCOPIC) WITH CULTURE IF VZQZRIZFATuvoirq22/10/2025 3:[address] THORACIC SPINE WO IVCON01/24/2025 2:[address] LUMBAR SPINE WO IVCON01/24/2025 2:16 PM EDT XR CHEST 1V QWQRGWT7101/24/2025 12:58 PM EDT COMPLETE BLOOD QCWSJNzetvlo13/10/2025 5:30 AM EDT TYPE + ASYBENHqphcvx34/10/2025 5:28 AM EDT MAGNESIUM BEHUgoprsb48/09/2025 4:20 AM EDT GGT NFUUyhtdng34/09/2025 4:20 AM EDT C-REACTIVE PROTEIN (CRP)Cqnzfzi7801/23/2025 4:20 AM EDT COMPREHENSIVE METABOLIC XGPKFPpvgwyp38/09/2025 4:20 AM EDT CBC + DKKHEerfyjr86/09/2025 4:20 AM EDT NT PRO FAGTuwtwtd75/09/2025 4:20 AM EDT TACROLIMUS/FK-506 MRImtoezv31/09/2025 4:20 AM EDT PHOSPHORUS OXNRUDRFVZrkmzfr74/09/2025 4:20 AM EDT MAGNESIUM CHWEvmcszl11/06/2025 4:30 AM EDT GGT BRWLsksjbe22/06/2025 4:30 AM EDT C-REACTIVE PROTEIN (CRP)Djkzcyu0901/20/2025 4:30 AM EDT COMPREHENSIVE METABOLIC CVEMDDwpuhdx46/06/2025 4:30 AM EDT CYTOMEGALOVIRUS (CMV) DNA, QUANTITATIVE PCR, UVXLLEOrosdam32/06/2025 4:30 AM EDT CBC + DYAUKakseql06/06/2025 4:30 AM EDT NT PRO BNHWrxwywz24/06/2025 4:30 AM EDT TACROLIMUS/FK-506 LUBfsmnrz30/06/2025 4:30 AM EDT PHOSPHORUS HYEYIEKJDPxirpwx23/06/2025 4:30 AM EDT C-REACTIVE PROTEIN (CRP)Eeedmqj7401/19/2025 11:11 AM EDT SEDIMENTATION TACYNveygxl81/05/2025 11:11 AM EDT CBC + LAFZGzmbflt39/05/2025 11:11 AM EDT XR ABDOMEN 3V KUB W/GRAQHZGT33/03/2025 2:03 PM EDT XR ABDOMEN 3V KUB W/SRHEGJIN68/02/2025 9:26 PM EDT XR ABDOMEN 3V KUB W/MGLAMLRQ96/02/2025 5:27 PM EDT XR ABDOMEN 3V KUB W/KOENMGML06/02/2025 1:21 PM EDT MAGNESIUM XEQWyemmdx79/02/2025 4:47 AM EDT GGT GGOGagyssu28/02/2025 4:47 AM EDT C-REACTIVE PROTEIN (CRP)Abupryk7501/16/2025 4:47 AM EDT COMPREHENSIVE METABOLIC ARGRMQtabcgs34/02/2025 4:47 AM EDT CBC + RXWUHteucbi43/02/2025 4:47 AM EDT NT PRO TLEHbzkmjr60/02/2025 4:47 AM EDT TACROLIMUS/FK-506 EEIbapgvp35/02/2025 4:47 AM EDT PHOSPHORUS JTVCMZIOLNhiuiub50/02/2025 4:47 AM EDT XR CHEST 1V DPBOKSL0401/15/2025 7:45 PM EDT C-REACTIVE PROTEIN (CRP)Toivxbz3501/15/2025 5:30 AM EDT GGT YSFOokuflb59/01/2025 5:30 AM EDT MAGNESIUM VOJEoizkqd57/01/2025 5:30 AM EDT COMPREHENSIVE METABOLIC VGQEEKddnqze90/01/2025 5:30 AM EDT CBC + SJMFKuxdlix78/01/2025 5:30 AM EDT TACROLIMUS/FK-506 VVVsbuniq27/01/2025 5:01 AM EDT PROTHROMBIN SJORIGCW43/30/2025 5:33 PM EDT GLUCOSE, BLOOD (POC)Pqsvpff5501/14/2025 5:12 PM EDT GLUCOSE, BLOOD (POC)Aiyxhaf4001/14/2025 12:04 PM EDT GLUCOSE, BLOOD (POC)Rkhcjlp7401/14/2025 7:13 AM EDT PHOSPHORUS VRVXAGHHYPhmxwzm14/30/2025 5:53 AM EDT MAGNESIUM YQYMthwqef73/30/2025 5:53 AM EDT COMPREHENSIVE METABOLIC PDOYIIbhhnuw47/30/2025 5:53 AM EDT TACROLIMUS/FK-506 BLTimed Stat01/14/2025 5:53 AM EDT CBC + CSCZGwbtzhh55/30/2025 5:53 AM EDT GLUCOSE, BLOOD (POC)Ejkvnng2601/13/2025 8:19 PM EDT GLUCOSE, BLOOD (POC)Dugpnpw6101/13/2025 5:42 PM EDT GLUCOSE, BLOOD (POC)Mppkakd4101/13/2025 11:53 AM EDT GLUCOSE, BLOOD (POC)Xpmcnat0801/13/2025 7:27 AM EDT PHOSPHORUS OLZSSENBEEmovvpx84/29/2025 5:45 AM EDT MAGNESIUM JQZAagnedn21/29/2025 5:45 AM EDT COMPREHENSIVE METABOLIC SMOCJSayvofv96/29/2025 5:45 AM EDT TACROLIMUS/FK-506 BLTimed Stat01/13/2025 5:45 AM EDT CYTOMEGALOVIRUS (CMV) DNA, QUANTITATIVE PCR, XSWWHBRpcmlea62/29/2025 5:45 AM EDT CBC + IVDWBazrfdx21/29/2025 5:45 AM EDT GLUCOSE, BLOOD (POC)Qyxgbpn6801/12/2025 11:16 PM EDT GLUCOSE, BLOOD (POC)Lwjpcgv5201/12/2025 10:19 PM EDT GLUCOSE, BLOOD (POC)Edlswng0001/12/2025 6:03 PM EDT GLUCOSE, BLOOD (POC)Teopcqo2801/12/2025 12:06 PM EDT GLUCOSE, BLOOD (POC)Ukodkaz3801/12/2025 7:36 AM EDT TYPE + FUBJVIZfiennx08/28/2025 3:14 AM EDT PHOSPHORUS STKWSKXIHYbzlbxi00/28/2025 3:14 AM EDT MAGNESIUM RLKKppedxq56/28/2025 3:14 AM EDT COMPREHENSIVE METABOLIC NARWAWejvjxu78/28/2025 3:14 AM EDT TACROLIMUS/FK-506 BLTimed Stat01/12/2025 3:14 AM EDT CBC + VNTOQlekejw02/28/2025 3:14 AM EDT GLUCOSE, BLOOD (POC)Ytjbncz7501/11/2025 9:27 PM EDT GLUCOSE, BLOOD (POC)Nqnaypi2601/11/2025 5:12 PM EDT XR ABDOMEN 1V ZMBKTGZBFC46/27/2025 2:18 PM EDT GLUCOSE, BLOOD (POC)Qvmbgos2601/11/2025 12:25 PM EDT GLUCOSE, BLOOD (POC)Ppajqaj6201/11/2025 8:34 AM EDT C-REACTIVE PROTEIN (CRP)Mpbtnkj4501/11/2025 3:22 AM EDT PHOSPHORUS GYOMORWHXEanvzre31/27/2025 3:22 AM EDT MAGNESIUM RBZDuwxmqj53/27/2025 3:22 AM EDT COMPREHENSIVE METABOLIC QBBXYPwjblds09/27/2025 3:22 AM EDT TACROLIMUS/FK-506 BLTimed Stat01/11/2025 3:22 AM EDT CBC + LCRLAmfisef59/27/2025 3:22 AM EDT PT ED PATIENT AQNBHPLBDKK67/27/2025 GLUCOSE, BLOOD (POC)Eobuydi7401/10/2025 9:10 PM EDT XR ABDOMEN 1V TOCTIIRFTV07/26/2025 7:25 PM EDT GLUCOSE, BLOOD (POC)Bsfgwxa3901/10/2025 6:02 PM EDT GLUCOSE, BLOOD (POC)Ylpxsoy3501/10/2025 12:03 PM EDT XR ABDOMEN 1V ZLXDXZPyzlfvv62/26/2025 10:36 AM EDT FEEDING TUBE PLACEMENT PROCEDURE (W NOTE)Ixmkteb8501/10/2025 10:24 AM EDT Severe protein-calorie malnutrition (HCC) GLUCOSE, BLOOD (POC)Msiivzt7101/10/2025 8:26 AM EDT PHOSPHORUS XXPIHPZOZNzjxyco27/26/2025 5:34 AM EDT MAGNESIUM AQBKhswjar40/26/2025 5:34 AM EDT COMPREHENSIVE METABOLIC SZYBYIoelynm00/26/2025 5:34 AM EDT TACROLIMUS/FK-506 BLTimed Stat01/10/2025 5:34 AM EDT CBC + UDRGTddseid24/26/2025 5:34 AM EDT GLUCOSE, BLOOD (POC)Izsjved1301/09/2025 7:39 PM EDT GLUCOSE, BLOOD (POC)Irrsnmg5801/09/2025 5:33 PM EDT GLUCOSE, BLOOD (POC)Vvnghdo7101/09/2025 12:04 PM EDT GLUCOSE, BLOOD (POC)Qscjsyc2501/09/2025 7:41 AM EDT TYPE + XPPBBTVxshfbo61/25/2025 5:43 AM EDT PHOSPHORUS IXGSZHIAWDnwstxc29/25/2025 5:43 AM EDT MAGNESIUM PDWUavhlns49/25/2025 5:43 AM EDT COMPREHENSIVE METABOLIC XORKKHmmjrig61/25/2025 5:43 AM EDT TACROLIMUS/FK-506 BLTimed Stat01/09/2025 5:43 AM EDT CBC + LGPXImnonfc91/25/2025 5:43 AM EDT GLUCOSE, BLOOD (POC)Ihkagqt0001/08/2025 7:43 PM EDT ECG OLDPSWCBVqxelyq89/24/2025 5:12 PM EDT GLUCOSE, BLOOD (POC)Wzxasbo7901/08/2025 4:53 PM EDT BACTERIAL CULTURE, BOQQMMwerjis71/24/2025 3:16 PM EDT GLUCOSE, BLOOD (POC)Elcdqhw0901/08/2025 12:10 PM EDT GLUCOSE, BLOOD (POC)Vdpiizg2801/08/2025 7:27 AM EDT C-REACTIVE PROTEIN (CRP)Timed01/08/2025 5:33 AM EDT PHOSPHORUS MQDYYCKUSRcmvnqs20/24/2025 5:33 AM EDT MAGNESIUM OUCAkfqqub28/24/2025 5:33 AM EDT COMPREHENSIVE METABOLIC NTICLCsjujmb78/24/2025 5:33 AM EDT TACROLIMUS/FK-506 BLTimed Stat01/08/2025 5:33 AM EDT CBC + DDUGXmccolw64/24/2025 5:33 AM EDT GLUCOSE, BLOOD (POC)Fqrvdyg6801/07/2025 8:13 PM EDT GLUCOSE, BLOOD (POC)Navnbko5701/07/2025 5:04 PM EDT US CHEST EFFUSION FKWGDXDbxcsbo99/23/2025 3:32 PM EDT GLUCOSE, BLOOD (POC)Swvzmcf2901/07/2025 12:26 PM EDT GLUCOSE, BLOOD (POC)Vfmwzvd7501/07/2025 8:52 AM EDT PHOSPHORUS RQSPWSJMJTlsrwhs84/23/2025 5:55 AM EDT MAGNESIUM ZBEAuppplu14/23/2025 5:55 AM EDT COMPREHENSIVE METABOLIC PSLJNUwozjoe91/23/2025 5:55 AM EDT TACROLIMUS/FK-506 BLTimed Stat01/07/2025 5:55 AM EDT CBC + JXBWTidfpve21/23/2025 5:55 AM EDT GLUCOSE, BLOOD (POC)Hfeqxjs6601/06/2025 8:43 PM EDT BACTERIAL CULTURE, OMNYACiawevl04/22/2025 7:11 PM EDT BACTERIAL CULTURE, LAFVMCnpslkv86/22/2025 5:11 PM EDT GLUCOSE, BLOOD (POC)Ifzojog8801/06/2025 5:03 PM EDT IR INTERVENTIONAL RADIOLOGY KBTDBLMLlkdqmu33/22/2025 4:08 PM EDTTYPE + SCREEN Zedpzui6101/06/2025 3:32 AM EDT PHOSPHORUS IWTDLPUNZBuwfznb91/22/2025 3:32 AM EDT MAGNESIUM WGLZerxltf78/22/2025 3:32 AM EDT COMPREHENSIVE METABOLIC KCUKKMjrnohc87/22/2025 3:32 AM EDT TACROLIMUS/FK-506 BLTimed Stat01/06/2025 3:32 AM EDT CYTOMEGALOVIRUS (CMV) DNA, QUANTITATIVE PCR, USCBOKSxcgrfp85/22/2025 3:32 AM EDT CBC + MEWXEpvpqpz27/22/2025 3:32 AM EDT LIPID PANEL, NZMQCTVKlerdjp15/04/2025 8:44 AM EDT Disorder of liver Liver replaced by transplant (HCC) HEPATITIS C VIRUS (HCV) RNA, QUANTITATIVE PCR, PLASMA/OZJISVjdctpf66/01/2025 8:39 AM EDT KTCEGSZATUTECCvoggfh26/19/2025 11:29 AM EDT COLONOSCOPY PCKZTHTMAIbzqtrh02/17/2025 8:53 AM EDT from Last 3 Months or Most Recently Relevant to Health Maintenance Results * MAGNESIUM (03/31/2025 9:07 AM EST) Only the most recent of24 resultswithin the time period is included. ComponentValueRef RangeTest MethodAnalysis TimePerformed AtPathologist Signature Magnesium1.91.5 - 2.5 mg/dLTG PublishingTENNOVA HEALTHCARE - CLARKSVILLEComment: Test Performed at: [facility] ??[id number] VIVIEN SALAS MD Specimen (Source)Anatomical Location / LateralityCollection Method / Volume Collection TimeReceived TimeBloodBLOOD SPECIMEN / Wzdrbgl7803/31/2025 9:07 AM EST 03/31/2025 9:07 AM EST Narrative Authorizing ProviderResult TypeResult StatusShelli Boo APRN.CNPLABORATORY Final ResultPerforming OrganizationAddressCity/State/ZIP CodePhone Number [facility] [phone] [place] [address] [address] [facility] [phone] * (ABNORMAL) CYTOMEGALOVIRUS (CMV) DNA, QUANTITATIVE PCR, PLASMA (03/31/2025 9:07 AM EST) Only the most recent of10 resultswithin the time period is included. ComponentValueRef RangeTest MethodAnalysis TimePerformed AtPathologist Signature CMV DNA, Qn, DMG401(H)IU/mLQUEST [facility]/RAM[facility] CHANTILLYCMV DNA, QN PCR 2.65(H)log IU/mLQUEST DIAGNOSTICS/RAMOS CHANTILLYComment: ? REFERENCE RANGE: NOT DETECTED ? For additional information, please refer to http://education.Amplidata/faq/CMVandEBVPCR (This link is being provided for informational/ educational purposes only.) ? Test Performed at: [facility] [address] [place] [address] ?? JIM COLBERT MD,PHD Specimen (Source)Anatomical Location / LateralityCollection Method / Volume Collection TimeReceived TimeBloodBLOOD SPECIMEN / Gjcjffr1403/31/2025 9:07 AM EST 03/31/2025 9:07 AM EST Narrative Authorizing ProviderResult TypeResult StatusShelli Boo APRN.CNPLABORATORY Final ResultPerforming OrganizationAddressty/State/ZIP CodePhone Number [facility] [phone] [place] [address] [facility]/[employer] * TACROLIMUS/FK-506 BL (03/31/2025 9:07 AM EST) Only the most recent of23 resultswithin the time period is included. ComponentValueRef RangeTest MethodAnalysis TimePerformed AtPathologist Signature Tacrolimus, Highly Sensitive, LC/MS/MS8.8mcg/LQUESVestiaire CollectiveTENNOVA HEALTHCARE - [place] Comment: No definitive therapeutic or toxic ranges have been established. Optimal blood drug levels are influenced by type of transplant, patient response, time post- transplant, co-administration of other drugs, and drug formulation. The following trough range is a suggested guideline: 5.0-20.0 mcg/L. This test was developed and its analytical performance characteristics have been determined by [employer]. It has not been cleared or approved by the FDA. This assay has been validated pursuant to the CLIA regulations and is used for clinical purposes. Test Performed at: [facility] ??[phone] VIVIEN SALAS MD Specimen (Source)Anatomical Location / LateralityCollection Method / Volume Collection TimeReceived TimeBloodBLOOD SPECIMEN / Fpzgnkx6703/31/2025 9:07 AM EST 03/31/2025 9:07 AM EST Narrative Authorizing ProviderResult TypeResult StatusShelli Boo APRN.CNPLABORATORY Final ResultPerforming OrganizationAddressCity/State/ZIP CodePhone Number [facility] [address] [place] [address] [facility] [phone] * (ABNORMAL) PHOSPHORUS INORGANIC (03/31/2025 9:07 AM EST) Only the most recent of23 resultswithin the time period is included. ComponentValueRef RangeTest MethodAnalysis TimePerformed AtPathologist Signature Phosphorus5.4(H)2.1 - 4.3 mg/dLTG PublishingTENNOVA HEALTHCARE - CLARKSVILLEComment: Test Performed at: [facility] ??[phone] VIVIEN SALAS MD Specimen (Source)Anatomical Location / LateralityCollection Method / Volume Collection TimeReceived TimeBloodBLOOD SPECIMEN / Knmkkkm5203/31/2025 9:07 AM EST 03/31/2025 9:07 AM EST Narrative Authorizing ProviderResult TypeResult StatusShelli Boo APRN.CNPLABORATORY Final ResultPerforming OrganizationAddressCity/State/ZIP CodePhone Number [facility] [phone] [place] [address] [facility] [phone] * GGT (03/31/2025 9:07 AM EST) Only the most recent of15 resultswithin the time period is included. ComponentValueRef RangeTest MethodAnalysis TimePerformed AtPathologist Signature UTW344 - 70 U/LQUEST DIAGNOSTICSTENNOVA HEALTHCARE - CLARKSVILLEComment: Test Performed at: [employer] [facility] ??[phone] VIVIEN SALAS MD Specimen (Source)Anatomical Location / LateralityCollection Method / Volume Collection TimeReceived TimeBloodBLOOD SPECIMEN / Fncosrz5503/31/2025 9:07 AM EST 03/31/2025 9:07 AM EST Narrative Authorizing ProviderResult TypeResult StatusShelli Boo APRN.CNPLABORATORY Final ResultPerforming OrganizationAddressCity/State/ZIP CodePhone Number MIRIAN [address] [place] [address] [employer] [facility] [address] * (ABNORMAL) COMPREHENSIVE METABOLIC PANEL (03/31/2025 9:07 AM EST) Only the most recent of24 resultswithin the time period is included. ComponentValueRef RangeTest MethodAnalysis TimePerformed AtPathologist Signature Iycmlyb7819 - 99 mg/dLGlythera DIAGNOSTICSTENNOVA HEALTHCARE - CLARKSVILLEComment: ? Fasting reference interval BUN32(H)7 - 25 mg/dLQUEST DIAGNOSTICS-SAINT CLOUDCreatinine1.69(H)0.70 - 1.28 mg/dLQUEST DIAGNOSTICS-BZGWBEYMTCMZQX93(L)> OR = 60 mL/min/1.68k3SDVRG DIAGNOSTICS-SAINT CLOUDBUN/Creat Alyfe072 - 22 (calc)[facility] Supous290871 - 146 mmol/LQUEST DIAGNOSTICS-SAINT CLOUDPotassium5.9(H)3.5 - 5.3 mmol/LQUEST DIAGNOSTICS-MGCXOFIPJIVvoumfvu24161 - 110 mmol/LQUEST DIAGNOSTICS-STSXTTQFTIXJ48335 - 32 mmol/LQUEST DIAGNOSTICS-SAINT CLOUDCalcium8.5 (L)8.6 - 10.3 mg/dLQUEST DIAGNOSTICS-SAINT CLOUDProtein, Total6.16.1 - 8.1 g/dL TG PublishingTENNOVA HEALTHCARE - CLARKSVILLEAlbumin3.0(L)3.6 - 5.1 g/dLQUEST DIAGNOSTICSTENNOVA HEALTHCARE - CLARKSVILLEGlobulin3.11.9 - 3.7 g/dL (calc)QUEST DIAGNOSTICS-SAINT CLOUDAlb/Glob Ratio1.01.0 - 2.5 (calc)QUEST mention-SAINT CLOUDBilirubin, Total0.30.2 - 1.2 mg/dLQUEST mentionTENNOVA HEALTHCARE - CLARKSVILLEAlkaline Osnejgpoxwk559(H)35 - 144 U/LQUEST DIAGNOSTICSTENNOVA HEALTHCARE - CLARKSVILLEVFOLPXEKQHDSG7552 - 35 U/LQUEST DIAGNOSTICS-EBMYKHVIHENPE612 - 46 U/LQUEST DIAGNOSTICS-SAINT CLOUDComment: Test Performed at: [address] ??[phone] VIVIEN SALAS MD Specimen (Source)Anatomical Location / LateralityCollection Method / Volume Collection TimeReceived TimeBloodBLOOD SPECIMEN / Zcnchos0703/31/2025 9:07 AM EST 03/31/2025 9:07 AM EST Narrative Authorizing ProviderResult TypeResult StatusMemehdi Boo APRN.CNPLABORATORY Final ResultPerforming OrganizationAddressCity/State/ZIP CodePhone Number [facility] [address] [place] [address] [employer] [address] * (ABNORMAL) COMPLETE BLOOD COUNT AND DIFFERENTIAL (03/31/2025 9:07 AM EST) Only the most recent of25 resultswithin the time period is included. ComponentValueRef RangeTest MethodAnalysis TimePerformed AtPathologist Signature WBC10.53.8 - 10.8 Thousand/uLGlythera DIAGNOSTICSTENNOVA HEALTHCARE - CLARKSVILLERBC3.07(L)4.20 - 5.80 Million/uLQUEST mentionTENNOVA HEALTHCARE - CLARKSVILLEFSWCJXMWOMZypacfryow25.1(L)13.2 - 17.1 g/dLPLAINS REGIONAL MEDICAL [facility]ENTER mentionTENNOVA HEALTHCARE - CLARKSVILLEBJTJQLOYAUMmenloqzts39.4(L)39.4 - 51.1 %[facility] mentionTENNOVA HEALTHCARE - [place]ARK[facility] ACC908.3(H)81.4 - 101.7 fLQUEST mentionTENNOVA HEALTHCARE - CLARKSVILLEHWJQCICYGWPPR19.927.0 - 33.0 pgQUEST DIAGNOSTICSTENNOVA HEALTHCARE - CLARKSVILLEQIMDPHHOAGRLIH28.231.6 - 35.4 g/dLPLAINS REGIONAL [facility] mentionTENNOVA HEALTHCARE - [place]ARK[place] RDW-CV13.511.0 - 15.0 %QUEST DIAGNOSTICS-SAINT CLOUDPlatelet Tyosp424591 - 400 Thousand/uLQUEST DIAGNOSTICS-SPIGRQDRUUJBL23.37.5 - 12.5 fLQUEST DIAGNOSTICS-SAINT CLOUDAbs Neut (ANC)4,0111,500 - 7,800 cells/uLQUEST DIAGNOSTICS-SAINT CLOUDAbs Lymph5,513(H)850 - 3,900 cells/uLQUEST DIAGNOSTICS-SAINT CLOUDAbs Sapf360392 - 950 cells/uLQUEST DIAGNOSTICS-[facility] [place] Abs Eyuoq97877 - 500 cells/uLQUEST DIAGNOSTICS-SAINT CLOUDAbs Dlxj367 - 200 cells/uLQUEST DIAGNOSTICS-SAINT CLOUDNeut%38.2%QUEST DIAGNO[facility]-SAINT CLOUDLymph% 52.5%[facility]-SAINT CLOUDMono%6.2%QUEST DIAGNOST[facility]-SAINT CLOUDEosin%2.8% QUEST DIAGNOSTICS-SAINT CLOUDBaso%0.3%QUEST DIAGNOSTICS-SAINT CLOUDComment: Test Performed at: [facility] mention[address] ??[phone] VIVIEN SALAS MD Specimen (Source)Anatomical Location / LateralityCollection Method / Volume Collection TimeReceived TimeBloodBLOOD SPECIMEN / Xeadtqa0403/31/2025 9:07 AM EST 03/31/2025 9:07 AM EST Narrative Authorizing ProviderResult TypeResult StatusMemehdi Boo APRN.CNPLABORATORY Final ResultPerforming OrganizationAddressCity/State/ZIP CodePhone Number [facility] [address] [place] [address] [facility] mention[address] [address] * PHOSPHATIDYLETHANOL (PETH) (03/10/2025 8:18 AM EST)ComponentValueRef RangeTest MethodAnalysis TimePerformed AtPathologist SignaturePEth 16:0/18:1 (POPEth) NEGATIVE<20 ng/mLQUEST DIAGNOSTICS/RAMOS CHANTILLYPEth 16:0/18:2 (PLPEth) NEGATIVE<20 ng/mLQUEST DIAGNOSTICS/RAMOS CHANTILLYPEth CommentsSEE NOTEQUEST DIAGNOSTICS/RAMOS CHANTILLYComment: See LDT Notes Test Performed at: [facility] [place] ??[phone] JIM COLBERT MD,PHD Specimen (Source)Anatomical Location / LateralityCollection Method / Volume Collection TimeReceived TimeBloodBLOOD SPECIMEN / Eeaidxi8203/10/2025 8:18 AM EST 03/10/2025 8:19 AM EST Narrative Authorizing ProviderResult TypeResult Statusmehdi Boo APRN.CNPLABORATORY Final ResultPerforming OrganizationAddressCity/State/ZIP CodePhone Number MIRIAN [address] [place] [address] [employer]/[address] * DRUG MONITORING TEMPLATE (03/10/2025 8:18 AM EST)ComponentValueRef RangeTest MethodAnalysis TimePerformed AtPathologist SignatureNotes And CommentsSEE NOTE Glythera DIAGNOSTICSTENNOVA HEALTHCARE - CLARKSVILLEComment: This drug testing is for medical treatment only. Analysis was performed as non-forensic testing and these results should be used only by healthcare providers to render diagnosis or treatment, or to monitor progress of medical conditions. LDT Notes: Confirmation tests were developed and their analytical performance characteristics have been determined by [employer]. It has not been cleared or approved by the FDA. This assay has been validated pursuant to the CLIA regulations and is used for clinical purposes. Healthcare Providers needing Interpretation assistance, please contact us at [phone] ( ) M-F, 8am to 10pm EST Test Performed at: [employer] [facility] ??[phone] VIVIEN SALAS MD Specimen (Source)Anatomical Location / LateralityCollection Method / Volume Collection TimeReceived Time03/10/2025 8:18 AM EST03/10/2025 8:19 AM EST Narrative Authorizing ProviderResult TypeResult StatusShelli Boo APRN.CNPLABORATORY Final ResultPerforming OrganizationAddressCity/State/ZIP CodePhone Number [facility]ra [address] [place] [address] [address] * (ABNORMAL) CBC/DIFF (OUTSIDE UH) (02/12/2025 4:13 AM EDT)ComponentValueRef RangeTest MethodAnalysis TimePerformed AtPathologist SignatureWBC8.64.5 - 10.8 /[facility] WaxhawRBC2.33(A)4.00 - 6.60 M/[facility] WaxhawHGB7.9(A)14.0 - 18.0 g/dLNOVANT HEALTH PRESBYTERIAN MEDICAL CENTERHCT24.6(A)42.0 - 54.0 %[facility] CENTERMCV105.9(A)80.0 - 100.0 fLAMERICST. FRANCIS HOSPITALMCHC32.031.0 - 36.5 g/dLNOVANT HEALTH PRESBYTERIAN MEDICAL CENTERPLT130(A)150 - 450 K/[facility] WaxhawRDW22.9(A)11.0 - 16.0 %[facility] CENTERNeutrophil %83.8(A)40.0 - 80.0 %[facility] CENTERImmature Gran %[facility] CENTERLymphocyte %9.0(A)13.0 - 48.0 %[facility]ENTERMonocyte %2.6%[facility] CENTEREosinophil %4.1%[facility] CENTERBasophil %0.5%[facility] CENTERNEUT ABS7.201.9 - 8 K/[facility] WaxhawLYMPH ABS0.80(A)0.90 - 5.50 K/[facility] WaxhawMONO ABS0.200 - 1 K/[facility] WaxhawEOS ABS0.400.20 - 0.80 K/[facility] WaxhawBASO ABSNOVANT HEALTH PRESBYTERIAN MEDICAL CENTERSpecimen (Source)Anatomical Location / LateralityCollection Method / VolumeCollection TimeReceived TimeBLOOD SPECIMEN / Niqntvt0402/12/2025 4:13 AM EDT Narrative Authorizing ProviderResult TypeResult StatusDengrace Romo DOLABORATORY Final ResultPerforming OrganizationAddressCity/State/ZIP CodePhone Number [facility] [phone] * (ABNORMAL) CMP (EXTERNAL) (02/12/2025 4:13 AM EDT)ComponentValueRef RangeTest MethodAnalysis TimePerformed AtPathologist RrlxivtwvVD948609 - 145 mmol/L [facility]BY[facility] CENTERK5.13.5 - 5.3 mmol/[facility] Oozxevbm90672 - 110 MEQ/[facility] CHARLOTTECO22721 - 33 MEQ/[facility] CHARLOTTEGlucose7774 - 106 MG/DLNOVANT HEALTH PRESBYTERIAN MEDICAL CENTERBUN42(A)7 - 25 MG/DLNOVANT HEALTH PRESBYTERIAN MEDICAL CENTERCreatinine1.00.6 - 1.3 MG/DLNOVANT HEALTH PRESBYTERIAN MEDICAL CENTERGFR74>60 mL/MINNOVANT HEALTH PRESBYTERIAN MEDICAL CENTERGFR AFR AMER89>60 mL/MIN [facility]ICAL CENTERTotal Protein5.3(A)6.0 - 8.3 gm/dLNOVANT HEALTH PRESBYTERIAN MEDICAL CENTERAlbumin2.8(A)3.5 - 5.5 gm/dLNOVANT HEALTH PRESBYTERIAN MEDICAL CENTERCalcium8.2(A) 8.4 - 10.2 mg/dLNOVANT HEALTH PRESBYTERIAN MEDICAL CENTERBili Total0.30.2 - 1.2 mg/dLNOVANT HEALTH PRESBYTERIAN MEDICAL CENTERAST (SGOT)194 - 40 U/[facility] CHARLOTTEALT (SGPT)19 4 - 55 U/[facility] CHARLOTTEAlk Phos Wnrfq150(A)34 - 136 U/ERLANGER [facility] NephroPlus [facility] JACKSONVILLESpecimen (Source)Anatomical Location / LateralityCollection Method / VolumeCollection TimeReceived TimeBLOOD SPECIMEN / Mzgkgho3702/12/2025 4:13 AM EDT Narrative Authorizing ProviderResult TypeResult StatusDennis Barak Furalejandro DOLABORATORY Final ResultPerforming OrganizationAddressCity/State/ZIP CodePhone Number [facility] [phone] * Airway (02/10/2025 11:14 AM EDT) Narrative Virginia Diaz APRN.LEAD DEVELOPER - 02/10/2025 11:14 AM EDT Virginia Diaz APRN.LEAD DEVELOPER 02/10/2025 11:25 AM Airway General Information Procedure Start Time/Medication Administration: 02/10/2025 11:14 AM Procedure End Time: 02/10/2025 11:14 AM Patient location during procedure: OR Timeout Performed Pre-procedure: timeout performed Consent Obtained: Yes 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 anesthesia circuit Method: asleep Difficult Mask: No Final Airway Details Final airway type: endotracheal airwayFinal Endotracheal Airway: ETT Cuffed: yes Successful intubation technique: video laryngoscopy Devices used: Spann and intubating stylet Blade size: #4 ETT size (mm): 7.5 Measured from: lips Measurement (cm): 21 Placement verified by: chest auscultation and capnometry Cormack-Lehane Classification: grade I - full view of glottis Number of attempts at approach: 1 Airway not difficult Authorizing ProviderResult TypeResult StatusAngela Raymond MDANESTHESIDebby ORDERABLESFinal Result * ERCP (02/10/2025 10:57 AM EDT)Anatomical RegionLateralityModalityOtherSpecimen (Source)Anatomical Location / LateralityCollection Method / VolumeCollection TimeReceived Time02/10/2025 10:57 AM EDT Narrative 02/10/2025 12:05 PM EDT Q3 Patient Name: Charles Blandon Procedure Date: 02/10/2025 10:57 AM Date of : 1955 Admit Type: Outpatient Age: 69 Gender: Male Note Status: Finalized Attending MD: Jane Correia MD, [id number] Procedure: ? ERCP Indications: ? 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 Jane Correia MD, Bebo Barker MD ? (Fellow) Patient Profile: ? This is a 69 year old male. Refer to note in ? patient chart for documentation of history and ? physical. Referring Physician: ?? Jane Correia MD (Referring MD) Medicines: ? General Anesthesia, Cipro 400 mg IV Complications: ? No immediate complications. Requesting Provider: ?? Procedure: ? Pre-Anesthesia Assessment: ? - Prior to the procedure, a History and Physical ? was performed, and patient medications and ? allergies were reviewed. The patient's tolerance of ? previous anesthesia was also reviewed. The risks ? and benefits of the procedure and the sedation ? options and risks were discussed with the patient. ? All questions were answered, and informed consent ? was obtained. Prior Anticoagulants: The patient has ? taken no anticoagulant or antiplatelet agents. ASA ? Grade Assessment: III - A patient with severe ? systemic disease. After reviewing the risks and ? benefits, the patient was deemed in satisfactory ? condition to undergo the procedure. ? After obtaining informed consent, the scope was ? passed under direct vision. Throughout the ? procedure, the patient's blood pressure, pulse, and ? oxygen saturations were monitored continuously. The ? Duodenoscope was introduced through the mouth, and ? advanced to the duodenum and used to inject ? contrast into the bile duct. The ERCP was ? accomplished without difficulty. The patient ? tolerated the procedure well. Moderate Sedation: ? General anesthesia was administered by the anesthesia team. Findings: ? A specialty person film of the abdomen was obtained. Surgical clips were seen in ? the area of the right upper quadrant of the abdomen. Two stents ? ending in the main bile duct were seen. Two stents (one covered metal ? stent, one plastic stent) originating in the biliary tree were ? emerging from the major papilla. The stents were partially occluded. ? A biliary sphincterotomy had been performed. The sphincterotomy ? appeared open. Two stents were removed from the biliary tree using a ? Raptor grasping device and snare. The bile duct was deeply cannulated ? with the 11.5 mm balloon and guidewire. Contrast was injected. I ? personally interpreted the bile duct images. There was brisk flow of ? contrast through the ducts. Image quality was excellent. Contrast ? extended to the main bile duct. Contrast extended to the cystic duct. ? Contrast extended to the bifurcation. Contrast extended to the ? hepatic ducts. The extrahepatic bile duct was redundant and sigmoid ? shaped. The common hepatic duct contained a single mild stenosis. The ? biliary tree was swept with an 11.5 mm balloon starting at the ? bifurcation. Sludge was swept from the duct. Dilation of the ? post-transplant anastomosis with a 6 mm x 2 cm CRE Hurricane biliary ? balloon dilator was successful. Two transpapillary plastic stents ? with a single external flap and a single internal flap (one 10 Fr by ? 12 cm and one 7 Fr by 12 cm stents) were placed 10.5 cm into the ? right hepatic duct system. The stents were in good position. Impression: ?- Two partially occluded stents from the biliary ? tree were seen in the major papilla. Removed. ? - Prior biliary sphincterotomy appeared open. ? - A single mild biliary stricture was found in the ? common hepatic duct. The stricture was ? post-surgical. ? - Reduntant extrahepatic bile duct. ? - The biliary tree was swept and sludge was found. ? - The post-transplant anastomosis was successfully ? dilated. ? - Two plastic stents were placed into the right ? hepatic ducts. Estimated Blood Loss: ??Estimated blood loss: none. Recommendation: ?- Discharge patient to home. ? - Resume previous diet. ? - Cipro (ciprofloxacin) 500 mg PO BID for 5 days. ? - Repeat ERCP in 4 months to exchange stent. Procedure Code(s): ? --- Professional --- ? 96350 ? 08538, 59 ? 46353 ? 21128 Diagnosis Code(s): ? --- Professional --- ? T85.590A ? K91.89 ? K83.1 ? Z46.59 ? R74.8 ? Z09 ? Z94.4 CPT copyright 2020 [employer]. All rights reserved. Attending Participation: ? I was present and participated during the entire procedure, including ? non-david portions. Scope In: 11:18:19 AM Scope Out: 11:56:09 AM MD Jane Alexander MD 02/10/2025 12:03:11 PM This report has been signed electronically by Jane Correia MD Number of Addenda: 0 Note Initiated On: 02/10/2025 10:57 AM Authorizing ProviderResult TypeResult StatusMaraciel Correia MDDIGESTIVE DISEASEFinal Result * PROTHROMBIN TIME (02/10/2025 10:02 AM EDT) Only the most recent of2 resultswithin the time period is included. ComponentValueRef RangeTest MethodAnalysis TimePerformed AtPathologist Signature PT Sec10.99.7 - 13.0 sec02/10/2025 11:04 AM EDGALION COMM[facility] MAIN LABINR1.0 0.9 - 1.310 11:04 AM EDGALION COMMUNITY HOSPITAL MAIN LABComment: Vitamin K Antagonist (VKA) Therapeutic Range: INR 2 to 3 (Target INR of 2.5) Note: For patients treated with VKA drugs, such as warfarin, the [employer] 2012 Guideline recommends [...] 2.5 to 3.5 (target INR of 3). Guyatt GH, et al. Chest 2012, 141:7S-47S Clark RA, et al. JACC 2017, 70: 252-289 Specimen (Source)Anatomical Location / LateralityCollection Method / Volume Collection TimeReceived TimeBloodBLOOD SPECIMEN / UnknownVenipuncture / Unknown 02/10/2025 10:02 AM EDT1 10:02 AM EDT Narrative Authorizing ProviderResult TypeResult StatusShilbismark Garg MDLABORATORYFinal ResultPerforming OrganizationAddressCity/State/ZIP CodePhone Number [facility] [address] * ALPHA FETOPROTEIN (02/10/2025 10:02 AM EDT)ComponentValueRef RangeTest Method Analysis TimePerformed AtPathologist SignatureAFP, Serum (Tumor Marker)1.38 <9.00 ng/mL02/11/2025 8:57 AM EDTCLANCASTER MUNICIPAL HOSPITAL MAIN LABComment:The Alpha- Fetoprotein test was performed using the [employer] DxI immunoenzymatic assay. Results obtained with different assay methods or kits cannot be used interchangeably.Specimen (Source)Anatomical Location / LateralityCollection Method / VolumeCollection TimeReceived TimeBloodBLOOD SPECIMEN / Unknown Venipuncture / Xzkztbr6202/10/2025 10:02 AM EDT1 10:02 AM EDT Narrative [facility] - 02/11/2025 8:57 AM EDT The test is typically used as an aid in managing hepatocellular carcinoma and non-seminomatous testicular cancer when used in conjunction with physical examination, histology, and other clinical evaluation procedures. Normal levels of AFP do not entirely exclude the possibility of the above-mentioned conditions, other malignancies, and chronic liver diseases. The normal range has not been established for newborns. Authorizing ProviderResult TypeResult StatusConnie Garg MDLABORATORYFinal ResultPerforming OrganizationAddressCity/State/ZIP CodePhone Number [facility] [address] [place] [address], [place] * (ABNORMAL) NT PRO BNP (02/03/2025 4:48 AM EDT) Only the most recent of6 resultswithin the time period is included. ComponentValueRef RangeTest MethodAnalysis TimePerformed AtPathologist Signature NT Pro FIL212(H)<125 pg/mL02/03/2025 9:01 AM EDTFAIRVIEW LABORATORYSpecimen (Source)Anatomical Location / LateralityCollection Method / VolumeCollection TimeReceived TimeBloodBLOOD SPECIMEN / UnknownVenipuncture / Lrevikq0102/03/2025 4:48 AM EDT1 8:07 AM EDT Narrative Authorizing ProviderResult TypeResult StatusJonathan ANDRADEABORATORYFinal ResultPerforming OrganizationAddressCity/State/ZIP CodePhone Number [facility] [address] [place] [address], [place] * (ABNORMAL) C-REACTIVE PROTEIN (02/03/2025 4:48 AM EDT) Only the most recent of11 resultswithin the time period is included. ComponentValueRef RangeTest MethodAnalysis TimePerformed AtPathologist Signature CRP11.0(H)<0.9 mg/dL02/03/2025 9:10 AM EDTFAIRVIEW LABORATORYSpecimen (Source) Anatomical Location / LateralityCollection Method / VolumeCollection Time Received TimeBloodBLOOD SPECIMEN / UnknownVenipuncture / Xmlncan2702/03/2025 4:48 AM EDT1 8:07 AM EDT Narrative Authorizing ProviderResult TypeResult StatusSadenise Cruz DOLABORATORYFinal ResultPerforming OrganizationAddressCity/State/ZIP CodePhone Number [facility] [address] [place] [address], * XR CHEST 1V FRONTAL (01/31/2025 12:03 PM EDT)Anatomical RegionLaterality ModalityChestRadiographic ImagingSpecimen (Source)Anatomical Location / LateralityCollection Method / VolumeCollection TimeReceived Time01/31/2025 12:03 PM EDT Impressions 01/31/2025 12:44 PM EDT IMPRESSION: Similar appearance of pleural effusions and bibasilar parenchymal opacities. [employer]: [employer] ?? Transcribe Date/Time: Jan 31 2025 12:38P [...] ??Incompletely-imaged thoracolumbar spinal stabilization rods. Procedure Note Provider, [facility] [place] - 01/31/2025 * * *Final Report* * [...] silhouette. Other: Incompletely-imaged thoracolumbar spinal stabilization rods. IMPRESSION IMPRESSION: Similar appearance of pleural effusions and bibasilar parenchymal opacities. [employer]: SRINI Transcribe Date/Time: Jan 31 2025 12:38P Dictated by : DANIEL LACY MD This examination was interpreted and the report reviewed and electronically signed by: DANIEL LACY MD on Jan 31 2025 12:41PM EST Authorizing ProviderResult TypeResult StatusCcf ProviderRAD-PAMAFinal Result * (ABNORMAL) LIPASE (01/26/2025 5:30 AM EDT)ComponentValueRef RangeTest Method Analysis TimePerformed AtPathologist XdvflivvmJugcun37(L)16 - 61 U/L1 9:45 AM EDTFAIRVIEW LABORATORYSpecimen (Source)Anatomical Location / LateralityCollection Method / VolumeCollection TimeReceived TimeBloodBLOOD SPECIMEN / Woqnodg9701/26/2025 5:30 AM EDT10/03/2025 9:07 AM EDT Narrative Authorizing ProviderResult TypeResult StatusBetty Dias DOLABORATORYFinal ResultPerforming OrganizationAddressCity/State/ZIP CodePhone Number [facility] [address] [place] [phone], * (ABNORMAL) AMYLASE (01/26/2025 5:30 AM EDT)ComponentValueRef RangeTest Method Analysis TimePerformed AtPathologist WitejvuneAlzyyax43(L)30 - 104 U/L 01/26/2025 9:45 AM EDTFAIRVIEW LABORATORYSpecimen (Source)Anatomical Location / LateralityCollection Method / VolumeCollection TimeReceived TimeBloodBLOOD SPECIMEN / Eqtwkns0601/26/2025 5:30 AM EDT1 9:07 AM EDT Narrative Authorizing ProviderResult TypeResult StatusBetty Dias DOLABORATORYFinal ResultPerforming OrganizationAddressCity/State/ZIP CodePhone Number [facility] [address] [place] [phone], * (ABNORMAL) COMPLETE BLOOD COUNT (01/25/2025 5:53 AM EDT) Only the most recent of2 resultswithin the time period is included. ComponentValueRef RangeTest MethodAnalysis TimePerformed AtPathologist Signature WBC17.25(H)3.70 - 11.00 k/uL01/25/2025 7:08 AM EDTFAIRVIEW LABORATORYRBC2.26(L) 4.20 - 6.00 m/uL01/25/2025 7:08 AM EDTFAIRVIEW LABORATORYHemoglobin7.2(L)13.0 - 17.0 g/dL01/25/2025 7:08 AM EDTFAIRVIEW ZIVQGOIVZVCbgsrkoznw52.8(L)39.0 - 51.0 % 01/25/2025 7:08 AM EDTFAIRVIEW KGLCNUWIZSYHV791.9(H)80.0 - 100.0 fL01/25/2025 7:08 AM EDTFBOSTON NURSERY FOR BLIND BABIES HBQIJVYHZMTDI64.926.0 - 34.0 pg01/25/2025 7:08 AM EDT [place] YIQWUREHRCVVZJ35.630.5 - 36.0 g/dL01/25/2025 7:08 AM EDTFAIRVIEW LABORATORYRDW-CV19.9(H)11.5 - 15.0 %01/25/2025 7:08 AM EDTFAIRSELECT MEDICAL [facility] LAB[facility]ATORY Platelet Nhnlf385119 - 400 k/uL01/25/2025 7:08 AM EDTFBOSTON NURSERY FOR BLIND BABIES VPUEWDNEYSHJN70.3 9.0 - 12.7 fL01/25/2025 7:08 AM EDTFAIRSELECT MEDICAL [facility] LABORATORYAbsolute nRBC<0.01<0.01 k/uL01/25/2025 7:08 AM EDTFAIRVIEW LABORATORYSpecimen (Source)Anatomical Location / LateralityCollection Method / VolumeCollection TimeReceived TimeBlood BLOOD SPECIMEN / UnknownVenipuncture / Uwjoxlp3601/25/2025 5:53 AM EDT1 6:54 AM EDT Narrative Authorizing ProviderResult TypeResult StatusSadenise Cruz DOLABORATORYFinal ResultPerforming OrganizationAddressCity/State/ZIP CodePhone Number [facility] [address] * (ABNORMAL) URINALYSIS (WITH MICROSCOPIC) WITH CULTURE IF INDICATED (01/24/2025 3:10 PM EDT)ComponentValueRef RangeTest MethodAnalysis TimePerformed At Pathologist SignatureColorLight VehuodKdyvnt78/10/2025 4:52 PM EDTFAIRVIEW HPEWWIMMPWAygclbrRiythNjjyf95/10/2025 4:52 PM EDTFAIRVIEW LABORATORYGlucose, UrineNegativeTrace, Ltxnqnot07/10/2025 4:52 PM EDTFAIR[facility] Bilirubin, IrvieKfnbztmeWnnuyxco21/10/2025 4:52 PM EDTFAIRSELECT [facility] Ketones, UrineNegativeNegative, Trace01/24/2025 4:52 PM [facility] Specific [place], Ur1.0161.005 - 1.0686801/24/2025 4:52 PM EDTFAIRVIEW LABORATORYHemoglobin/Blood,UrNegativeNegative, Trace01/24/2025 4:52 PM EDT [place] [facility], Urine6.55.0 - 8.010 4:52 PM EDTFAIRSELECT [facility] LABORATORYProtein, UrineNegativeTrace, Jvqdenyy51/10/2025 4:52 PM EDTFAIR[facility] RBVXYZFMLWYjnnqocmieyxDlnrsiDdftne85/10/2025 4:52 PM EDTFAIRVIEW LABORATORY XxmspnxgRsaemvwaXcjrxieg11/10/2025 4:52 PM EDTFAIRVIEW LABORATORYLeuk Esterase NegativeNegative, 25 Eder/uL01/24/2025 4:52 PM EDTFAIRVIEW LABORATORYWBC, Urine 0-5 /HPF0-5 /HPF01/24/2025 4:52 PM EDTFAIRVIEW LABORATORYRBC, Urine3-5 /HPF(A) 0-3 /HPF01/24/2025 4:52 PM EDTFAIRVIEW LABORATORYSquamous Epithelial CellsFew /HPF01/24/2025 4:52 PM EDTFAIRVIEW LABORATORYSpecimen (Source)Anatomical Location / LateralityCollection Method / VolumeCollection TimeReceived Time UrineURINE SPECIMEN / UnknownNon Blood / Gflmgtn0901/24/2025 3:10 PM EDT 01/24/2025 4:41 PM EDT Narrative Authorizing ProviderResult TypeResult StatusNisha Larissa DOLABORATORYFinal ResultPerforming OrganizationAddressCity/State/[facility] CodePhone Number [facility] [address] [place] [address], * CT THORACIC SPINE WO IVCON (01/24/2025 2:16 PM EDT)Anatomical RegionLaterality ModalityT-spineComputed TomographySpecimen (Source)Anatomical Location / LateralityCollection Method / VolumeCollection TimeReceived Time01/24/2025 2:16 PM EDT Addenda Addendum by Provider, [facility] [place] on 01/24/2025 4:13 PM EDT * * *Final Report* * * * ??* ??* SEE BOTTOM OF REPORT FOR ADDENDED TEXT * ??* ??* DATE OF EXAM: Jan 24 2025 ??2:16PM ?? [facility] ?? 0514 ??- ??CT THORACIC SPINE [...] processes versus sequela of prior fractures, unchanged [employer]: [employer]I ?? Transcribe Date/Time: Jan 24 2025 ??4:06P Dictated by : KHLOE DELGADO MD This examination was interpreted and the report reviewed and electronically signed by: KHLOE DELGADO MD on Jan 24 2025 ??3:21PM ??EST This document has been addended by: KHLOE DELGADO MD on Jan 24 2025 ?? 4:10PM ??EST Narrative Authorizing ProviderResult TypeResult StatusSadenise Cruz DOCT-PAMAEdited Result - Final * CT LUMBAR SPINE WO IVCON (01/24/2025 2:16 PM EDT)Anatomical RegionLaterality ModalityL-spineComputed TomographySpecimen (Source)Anatomical Location / LateralityCollection Method / VolumeCollection TimeReceived Time01/24/2025 2:16 PM EDT Addenda Addendum by Provider, [facility] [place] on 01/24/2025 4:13 PM EDT * * *Final Report* * * * ??* ??* SEE BOTTOM OF REPORT FOR ADDENDED TEXT * ??* ??* DATE OF EXAM: Jan 24 2025 ??2:16PM ?? C ?? 0508 ??- ??CT LUMBAR SPINE WO [...] processes versus sequela of prior fractures, unchanged [employer]: [employer] ?? Transcribe Date/Time: Jan 24 2025 ??4:06P Dictated by : KHLOE DELGADO MD This examination was interpreted and the report reviewed and electronically signed by: KHLOE DELGADO MD on Jan 24 2025 ??3:21PM ??EST This document has been addended by: KHLOE DELGADO MD on Jan 24 2025 ?? 4:10PM ??EST Narrative Authorizing ProviderResult TypeResult StatusJonathan Cruz DOCT-PAMAEdited Result - Final * XR CHEST 1V FRONTAL (01/24/2025 12:58 PM EDT)Anatomical RegionLaterality ModalityChestRadiographic ImagingSpecimen (Source)Anatomical Location / LateralityCollection Method / VolumeCollection TimeReceived Time01/24/2025 12:58 PM EDT Impressions 01/24/2025 1:35 PM EDT IMPRESSION: No significant interval change. Consolidation/atelectasis both lower lungs, right greater than left, with small bilateral pleural effusions/thickening. [employer]: [employer] ?? Transcribe Date/Time: Jan 24 2025 ??1:31P Dictated by : AMARILIS MACK MD This examination was interpreted and the report reviewed and electronically signed by: AMARILIS MACK MD on Jan 24 2025 ??1:33PM ??EST Narrative 01/24/2025 1:35 PM EDT * * *Final Report* * * DATE OF EXAM: Jan 24 2025 12:58PM ?? S0X ?? 5290 ??- ??XR CHEST 1V FRONTAL ?? / PROCEDURE REASON: monitor for infiltrates ? * * * * Physician Interpretation * * * * EXAMINATION: ??CHEST RADIOGRAPH (PORTABLE SINGLE VIEW AP) Exam Date/Time: ??01/24/2025 12:58 PM Clinical History: ??monitor for infiltrates Comparison: ??Chest x-ray dated 01/15/2025, CT scan dated 01/04/2025 RESULT: LINES, TUBES, AND DEVICES: ??Feeding tube tip beyond the inferior extent of the image. CARDIOMEDIASTINAL SILHOUETTE: ??Stable. LUNGS AND PLEURA: Consolidation/atelectasis both lower lung zones, right greater than left, not significantly changed. ??Linear opacity left mid to upper lung corresponds to area of fissural thickening. ??Minimal blunting both costophrenic angles consistent with small pleural effusions or pleural thickening. No pneumothorax identified. OTHER: ??N/A Procedure Note Provider, [facility] [place] - 01/24/2025 * * *Final Report* * * DATE OF EXAM: Jan 24 2025 12:58PM S0X 5290 - XR CHEST 1V FRONTAL / PROCEDURE REASON: monitor for infiltrates * * * * Physician Interpretation * * * * EXAMINATION: CHEST RADIOGRAPH (PORTABLE SINGLE VIEW AP) Exam Date/Time: 01/24/2025 12:58 PM Clinical History: monitor for infiltrates Comparison: Chest x-ray dated 01/15/2025, CT scan dated 01/04/2025 RESULT: LINES, TUBES, AND DEVICES: Feeding tube tip beyond the inferior extent of the image. CARDIOMEDIASTINAL SILHOUETTE: Stable. LUNGS AND PLEURA: Consolidation/atelectasis both lower lung zones, right greater than left, not significantly changed. Linear opacity left mid to upper lung corresponds to area of fissural thickening. Minimal blunting both costophrenic angles consistent with small pleural effusions or pleural thickening. No pneumothorax identified. OTHER: N/A IMPRESSION IMPRESSION: No significant interval change. Consolidation/atelectasis both lower lungs, right greater than left, with small bilateral pleural effusions/thickening. [employer]: [employer] Transcribe Date/Time: Jan 24 2025 1:31P Dictated by : AMARILIS MACK MD This examination was interpreted and the report reviewed and electronically signed by: AMARILIS MACK MD on Jan 24 2025 1:33PM EST Authorizing ProviderResult TypeResult StatusCcf ProviderRAD-PAMAFinal Result * TYPE + SCREEN (01/24/2025 5:28 AM EDT) Only the most recent of4 resultswithin the time period is included. ComponentValueRef RangeTest MethodAnalysis TimePerformed AtPathologist Signature ABOO1 10:53 AM [facility] BLOOD BANKRh(D)Toanwsyj96/10/2025 10:53 AM EDNOR[facility] MAIN BLOOD BANKAntibody AtjqomHjvftfav03/10/2025 10:[address] [facility] BLO[facility] BANKType and Screen Upkwovpuby59/13/2025 23:5901/24/2025 10:[address] [facility] BLOOD BANKSpecimen (Source)Anatomical Location / LateralityCollection Method / VolumeCollection TimeReceived TimeBloodBLOOD SPECIMEN / Pmbzhtp9801/24/2025 5:28 AM EDT1 10:00 AM EDT Narrative Authorizing ProviderResult TypeResult Statusdenise Cruz DOBLOOD BANKFinal ResultPerforming OrganizationAddressCity/State/ZIP CodePhone Number [facility] BLOOD BANK [address] [facility] [address] [place] [id number], * (ABNORMAL) SEDIMENTATION RATE, WESTERGREN (01/19/2025 11:11 AM EDT)Component ValueRef RangeTest MethodAnalysis TimePerformed AtPathologist SignatureSed Rate, Szeirpfquy94(H)0 - 15 mm/hr01/19/2025 6:46 PM EDTCSELECT MEDICAL [facility] LABSpecimen (Source)Anatomical Location / LateralityCollection Method / VolumeCollection TimeReceived TimeBloodBLOOD SPECIMEN / Scfoxau4401/19/2025 11:11 AM EDT1 1:50 PM EDT Narrative Authorizing ProviderResult TypeResult StatusAlton Kim MDLABORATORYFinal ResultPerforming OrganizationAddressCity/State/ZIP CodePhone Number [facility] [address] [facility] [address] [place], [place] [id number], * XR ABDOMEN 3V KUB W/OBLIQUES (01/17/2025 2:03 PM EDT)Anatomical Region LateralityModalityAbdomenRadiographic ImagingSpecimen (Source)Anatomical Location / LateralityCollection Method / VolumeCollection TimeReceived Time 01/17/2025 2:03 PM EDT Impressions 01/17/2025 2:52 PM EDT IMPRESSION: Feeding tube tip within the distal stomach/proximal duodenum. [employer]: [employer] ?? Transcribe Date/Time: Jan ??2024 ??2:49P Dictated by : AMARILIS MACK MD This examination was interpreted and the report reviewed and electronically signed by: AMARILIS MACK MD on Jan ??2024 ??2:50PM ??EST Narrative 01/17/2025 2:52 PM EDT [...] bony abnormalities are seen. Procedure Note Provider, [facility] [place] - 01/17/2025 * * *Final Report* * [...] No No acute bony abnormalities are seen. IMPRESSION IMPRESSION: Feeding tube tip within the distal stomach/proximal duodenum. [employer]: [facility] Transcribe Date/Time: Jan 17 2025 2:49P Dictated by : AMARILIS MACK MD This examination was interpreted and the report reviewed and electronically signed by: AMARILIS MACK MD on Jan 17 2025 2:50PM EST Authorizing ProviderResult TypeResult StatusCcf ProviderRAD-PAMAFinal Result * XR ABDOMEN 3V KUB W/OBLIQUES (01/16/2025 9:26 PM EDT)Anatomical Region LateralityModalityAbdomenRadiographic ImagingSpecimen (Source)Anatomical Location / LateralityCollection Method / VolumeCollection TimeReceived Time 01/16/2025 9:26 PM EDT Narrative 01/16/2025 10:49 PM EDT * * *Final Report* * * DATE OF EXAM: Jan?2024 ??9:26PM ?? S0X ?? 5358 ??- ??XR ABDOMEN 3V KUB W/OBLIQUES ??/ PROCEDURE REASON: Corpak placement ? * * * * Physician Interpretation * * * * History: Enteric tube placement Result/ Impression: Single portable supine KUB. The tip of the enteric tube is below the diaphragm, over the location of the gastric fundus; the lower portion of the tube forms a curve in the gastric body. [employer]: [employer] ?? Transcribe Date/Time: Jan?2024 10:46P Dictated by : SHANTEL CRONIN MD This examination was interpreted and the report reviewed and electronically signed by: SHANTEL CRONIN MD on Jan 10:47PM ??EST Procedure Note Provider, [facility] - 01/16/2025 * * *Final Report* * * DATE OF EXAM: Jan 16 2025 9:26PM S0X 5358 - XR ABDOMEN 3V KUB W/OBLIQUES / PROCEDURE REASON: Corpak placement * * * * Physician Interpretation * * * * History: Enteric tube placement Result/ Impression: Single portable supine KUB. The tip of the enteric tube is below the diaphragm, over the location of the gastric fundus; the lower portion of the tube forms a curve in the gastric body. [employer]: [employer] Transcribe Date/Time: Jan 16 2025 10:46P Dictated by : SHANTEL CRONIN MD This examination was interpreted and the report reviewed and electronically signed by: SHANTEL CRONIN MD on Jan 16 2025 10:47PM EST Authorizing ProviderResult TypeResult StatusCcf ProviderRAD-PAMAFinal Result * XR ABDOMEN 3V KUB W/OBLIQUES (01/16/2025 5:27 PM EDT)Anatomical Region LateralityModalityAbdomenRadiographic ImagingSpecimen (Source)Anatomical Location / LateralityCollection Method / VolumeCollection TimeReceived Time 01/16/2025 5:27 PM EDT Impressions 01/16/2025 7:00 PM EDT IMPRESSION: As above. [employer]: [employer] ?? Transcribe Date/Time: Jan?2024 ??6:53P Dictated by : ABHAY WOODWARD MD This examination was interpreted and the report reviewed and electronically signed by: ABHAY WOODWARD MD on Jan ??2024 ??6:58PM ??EST Narrative 01/16/2025 7:00 PM EDT * * *Final Report* * * DATE OF EXAM: Jan?2024 ??5:27PM ?? S0X ?? 5358 ??- ??XR ABDOMEN 3V KUB W/OBLIQUES ??/ PROCEDURE REASON: Corpak placement ? * * * * Physician Interpretation * * * * Indication: Corpak placement. COMPARISON: Abdomen x-ray dated 01/16/2025 time 12:49 PM. TECHNIQUE: Single AP portable supine view of the abdomen. Feeding tube coiled within the proximal stomach with distal tip at mid gastric level noted, previously at gastric antrum level. Stable-appearing biliary drain. Right upper quadrant multiple surgical clips. Bowel loop gas pattern is nonspecific. Thoracolumbar spine fusion hardware is re-appreciated. Moderate diffuse osteopenia. Procedure Note Provider, [facility] [place] - 01/16/2025 * * *Final Report* * * DATE OF EXAM: Jan 16 2025 5:27PM S0X 5358 - XR ABDOMEN 3V KUB W/OBLIQUES / PROCEDURE REASON: Corpak placement * * * * Physician Interpretation * * * * Indication: Corpak placement. COMPARISON: Abdomen x-ray dated 01/16/2025 time 12:49 PM. TECHNIQUE: Single AP portable supine view of the abdomen. Feeding tube coiled within the proximal stomach with distal tip at mid gastric level noted, previously at gastric antrum level. Stable-appearing biliary drain. Right upper quadrant multiple surgical clips. Bowel loop gas pattern is nonspecific. Thoracolumbar spine fusion hardware is re-appreciated. Moderate diffuse osteopenia. IMPRESSION IMPRESSION: As above. [employer]: [employer] Transcribe Date/Time: Jan 16 2025 6:53P Dictated by : ABHAY WOODWARD MD This examination was interpreted and the report reviewed and electronically signed by: ABHAY WOODWARD MD on Jan 16 2025 6:58PM EST Authorizing ProviderResult TypeResult StatusCcf ProviderRAD-PAMAFinal Result * XR ABDOMEN 3V KUB W/OBLIQUES (01/16/2025 1:21 PM EDT)Anatomical Region LateralityModalityAbdomenRadiographic ImagingSpecimen (Source)Anatomical Location / LateralityCollection Method / VolumeCollection TimeReceived Time 01/16/2025 1:21 PM EDT Impressions 01/16/2025 1:47 PM EDT IMPRESSION: Nonspecific bowel gas pattern. Overall no change allowing for the difference in technique and patient positioning. [employer]: [employer] ?? Transcribe Date/Time: Jan ??2024 ??1:43P Dictated by : CHARIS WHALEN MD This examination was interpreted and the report reviewed and electronically signed by: CHARIS WHALEN MD on Jan ??2024 ??1:45PM ??EST Narrative 01/16/2025 1:47 PM EDT * * *Final Report* * * DATE OF EXAM: Jan ??2024 ??1:21PM ?? S0X ?? 5358 ??- ??XR ABDOMEN 3V KUB W/OBLIQUES ??/ PROCEDURE REASON: corpak, 1 view ? * * * * Physician Interpretation * * * * EXAMINATION: ??XR ABDOMEN 3V KUB W/OBLIQUES CURRENT STUDY: 01/16/2025 1:21 PM CLINICAL INFORMATION: Abdominal pain. ??Corpak feeding tube. TECHNIQUE: Supine abdomen, 1 image(s) COMPARISON: 01/11/2025. RESULT: There is no bowel dilation. ??Corpak feeding tube, with the distal tip in the distal portion of the stomach or proximal duodenum. ??Stable appearance of the coiled portion of the Corpak feeding tube within the stomach. ??Stable drainage catheter/biliary drain in the right upper quadrant. ??Stable postsurgical changes. ??Stable CBD stent. Stable postsurgical changes of the spine. - Procedure Note Provider, [facility] [place] - 01/16/2025 * * *Final Report* * * DATE OF EXAM: Jan 16 2025 1:21PM S0X 5358 - XR ABDOMEN 3V KUB W/OBLIQUES / PROCEDURE REASON: corpak, 1 view * * * * Physician Interpretation * * * * EXAMINATION: XR ABDOMEN 3V KUB W/OBLIQUES CURRENT STUDY: 01/16/2025 1:21 PM CLINICAL INFORMATION: Abdominal pain. Corpak feeding tube. TECHNIQUE: Supine abdomen, 1 image(s) COMPARISON: 01/11/2025. RESULT: There is no bowel dilation. Corpak feeding tube, with the distal tip in the distal portion of the stomach or proximal duodenum. Stable appearance of the coiled portion of the Corpak feeding tube within the stomach. Stable drainage catheter/biliary drain in the right upper quadrant. Stable postsurgical changes. Stable CBD stent. Stable postsurgical changes of the spine. - IMPRESSION IMPRESSION: Nonspecific bowel gas pattern. Overall no change allowing for the difference in technique and patient positioning. [employer]: [employer] Transcribe Date/Time: Jan 16 2025 1:43P Dictated by : CHARIS WHALEN MD This examination was interpreted and the report reviewed and electronically signed by: CHARIS WHALEN MD on Jan 16 2025 1:45PM EST Authorizing ProviderResult TypeResult StatusCcf ProviderRAD-PAMAFinal Result * XR CHEST 1V FRONTAL (01/15/2025 7:45 PM EDT)Anatomical RegionLaterality ModalityChestRadiographic ImagingSpecimen (Source)Anatomical Location / LateralityCollection Method / VolumeCollection TimeReceived Time01/15/2025 7:45 PM EDT Impressions 01/15/2025 9:01 PM EDT IMPRESSION: See result. [employer]: [employer] ?? Transcribe Date/Time: Jan ??2024 ??8:57P Dictated by : JIM ANAYA MD This examination was interpreted and the report reviewed and electronically signed by: JIM ANAYA MD on Jan ??2024 ??8:59PM ??EST Narrative 01/15/2025 9:01 PM EDT * * *Final Report* * * DATE OF EXAM: Jan ??2024 ??7:45PM ?? S0X ?? 5290 ??- ??XR CHEST 1V FRONTAL ?? / PROCEDURE REASON: Verify Corpak Placement ? * * * * Physician Interpretation * * * * EXAMINATION / TECHNIQUE: ??XR CHEST 1V FRONTAL Clinical History: ??Verify Corpak Placement Comparison: ??Chest CT 01/04/2025, radiograph 01/02/2025 RESULT: Lines, tubes, and devices: ??Enteric feeding tube courses below the diaphragm, outside the field of view. Lungs and pleura: ??Mid/lower lung atelectasis/scarring, similar to prior exam. ??Stable small bilateral pleural effusions, loculated on the right. ?? No new focal consolidations. ??No pneumothorax. Cardiomediastinal silhouette: ??Stable cardiomediastinal silhouette. Other: ??Thoracolumbar fusion hardware. Procedure Note Provider, [facility] [place] - 01/15/2025 * * *Final Report* * * DATE OF EXAM: Jan 15 2025 7:45PM S0X 5290 - XR CHEST 1V FRONTAL / PROCEDURE REASON: Verify Corpak Placement * * * * Physician Interpretation * * * * EXAMINATION / TECHNIQUE: XR CHEST 1V FRONTAL Clinical History: Verify Corpak Placement Comparison: Chest CT 01/04/2025, radiograph 01/02/2025 RESULT: Lines, tubes, and devices: Enteric feeding tube courses below the diaphragm, outside the field of view. Lungs and pleura: Mid/lower lung atelectasis/scarring, similar to prior exam. Stable small bilateral pleural effusions, loculated on the right. No new focal consolidations. No pneumothorax. Cardiomediastinal silhouette: Stable cardiomediastinal silhouette. Other: Thoracolumbar fusion hardware. IMPRESSION IMPRESSION: See result. [employer]: [employer] Transcribe Date/Time: Jan 15 2025 8:57P Dictated by : JIM ANAYA MD This examination was interpreted and the report reviewed and electronically signed by: JIM ANAYA MD on Jan 15 2025 8:59PM EST Authorizing ProviderResult TypeResult StatusCcf ProviderRAD-PAMAFinal Result * (ABNORMAL) GLUCOSE, BLOOD (POC) (01/14/2025 5:12 PM EDT) Only the most recent of34 resultswithin the time period is included. ComponentValueRef RangeTest MethodAnalysis TimePerformed AtPathologist Signature Glucose, Point of Wqfh925(A)74 - 99 mg/dLSelect Medical Specialty Hospital - CincinnatiComment: Location:[facility], [address] [place] [address] The Accu-Chek Inform II glucose meter has not been approved for testing on patients receiving intensive medical intervention or therapy and results from this point of care glucose test should not be used for patient management decisions in these cases. ??Inaccurate results may also occur from other interfering factors, such as N-acetylcysteine (blood concentrations of greater than 5mg/dL), galactose, extremes of hematocrit (<10 or >65), or high doses of ascorbic acid (vitamin C) greater than 3mg/dL. ??Consider alternate testing mechanisms (e.g. core lab, blood gas instrument) in the above situations. Specimen (Source)Anatomical Location / LateralityCollection Method / Volume Collection TimeReceived Time01/14/2025 5:12 PM EDT Narrative Authorizing ProviderResult TypeResult StatusCcf ProviderPOC TESTINGFinal Result Performing OrganizationAddressCity/State/ZIP CodePhone Number [facility] POINT OF CARE [facility] [address] [place], [place] * XR ABDOMEN 1V SUPINE (01/11/2025 2:18 PM EDT)Anatomical RegionLaterality ModalityAbdomenRadiographic ImagingSpecimen (Source)Anatomical Location / LateralityCollection Method / VolumeCollection TimeReceived Time01/11/2025 2:18 PM EDT Impressions 01/11/2025 3:06 PM EDT IMPRESSION: There is a feeding tube coiled in the gastric body with tip overlying the proximal duodenum . Common bile duct stent in place. Right upper quadrant surgical clips. Bowel:No dilated loops of bowel. Degenerative changes. [employer]: [employer] ?? Transcribe Date/Time: Jan 11 2025 ??3:02P Dictated by : LUZ GREENWOOD MD This examination was interpreted and the report reviewed and electronically signed by: LUZ GREENWOOD MD on Jan 11 2025 ??3:03PM ??EST Narrative 01/11/2025 3:06 PM EDT * * *Final Report* * * DATE OF EXAM: Jan 11 2025 ??2:18PM ?? DESIRAE ?? 5289 ??- ??XR ABDOMEN 1V SUPINE ??/ PROCEDURE REASON: Evaluate tube, line or lead position ? * * * * Physician Interpretation * * * * EXAMINATION: ??ABDOMEN RADIOGRAPH SINGLE ??VIEW(S) CLINICAL INFORMATION: Evaluate line or tube position TECHNIQUE: ??Single view(s) of the abdomen obtained. Number of images: 1, with post-processing COMPARISON: 01/10/2025, 01/02/2025 KUB RESULT: Procedure Note Provider, [facility] [place] - 01/11/2025 * * *Final Report* * * DATE OF EXAM: Jan 11 2025 2:18PM DESIRAE 5289 - XR ABDOMEN 1V SUPINE / PROCEDURE REASON: Evaluate tube, line or lead position * * * * Physician Interpretation * * * * EXAMINATION: ABDOMEN RADIOGRAPH SINGLE VIEW(S) CLINICAL INFORMATION: Evaluate line or tube position TECHNIQUE: Single view(s) of the abdomen obtained. Number of images: 1, with post-processing COMPARISON: 01/10/2025, 01/02/2025 KUB RESULT: IMPRESSION IMPRESSION: There is a feeding tube coiled in the gastric body with tip overlying the proximal duodenum . Common bile duct stent in place. Right upper quadrant surgical clips. Bowel:No dilated loops of bowel. Degenerative changes. [employer]: [facility] Transcribe Date/Time: Jan 11 2025 3:02P Dictated by : LUZ GREENWOOD MD This examination was interpreted and the report reviewed and electronically signed by: LUZ GREENWOOD MD on Jan 11 2025 3:03PM EST Authorizing ProviderResult TypeResult Haven Tiwari MDRAD-PAMAFinal Result * PT ED PATIENT INFORMATION (01/11/2025)Specimen (Source)Anatomical Location / LateralityCollection Method / VolumeCollection TimeReceived Time01/11/2025 Narrative PRISCILA - 01/11/2025 Alexis matthews patient CHARLES BLANDON started their Priscila on 01-11-2025 and completed it on 01-11-2025 Priscila program: PATIENT SAFETY INSTRUCTIONS FOR HEALTHCARE SETTINGS Authorizing ProviderResult TypeResult Alvin Correia MDEMMIFinal ResultPerforming OrganizationAddressCity/State/ZIP CodePhone Number [facility] * XR ABDOMEN 1V SUPINE (01/10/2025 7:25 PM EDT)Anatomical RegionLaterality ModalityAbdomenRadiographic ImagingSpecimen (Source)Anatomical Location / LateralityCollection Method / VolumeCollection TimeReceived Time01/10/2025 7:20 PM EDT Impressions 01/10/2025 7:41 PM EDT IMPRESSION: Lines, tubes, and devices: There is a feeding tube looping in the gastric body/antrum and terminating in the gastric antrum/pylorus. Common duct stent(s). Multilevel thoracolumbar spinal hardware partially seen. Bowel: No dilated bowel. Other: Osseous degenerative changes. [employer]: [employer] ?? Transcribe Date/Time: Jan 10 2025 ??7:37P Dictated by : RUSTY OSMAN, DO This examination was interpreted and the report reviewed and electronically signed by: RUSTY OSMAN, DO on Jan 10 2025 ??7:39PM ??EST Narrative 01/10/2025 7:41 PM EDT * * *Final Report* * * DATE OF EXAM: Jan 10 2025 ??7:20PM ?? DESIRAE ?? 5289 ??- ??XR ABDOMEN 1V SUPINE ??/ PROCEDURE REASON: Evaluate tube, line or lead position ? * * * * Physician Interpretation * * * * ABDOMINAL X-RAY, 1 VIEW CLINICAL INFORMATION: Feeding tube placement. COMPARISON: X-ray 01/10/2025, CT 01/04/2025. TECHNIQUE: Supine abdomen, 1 image(s). RESULT: See impression. Procedure Note Provider, [facility] [place] - 01/10/2025 * * *Final Report* * * DATE OF EXAM: Jan 10 2025 7:20PM DESIRAE 5289 - XR ABDOMEN 1V SUPINE / PROCEDURE REASON: Evaluate tube, line or lead position * * * * Physician Interpretation * * * * ABDOMINAL X-RAY, 1 VIEW CLINICAL INFORMATION: Feeding tube placement. COMPARISON: X-ray 01/10/2025, CT 01/04/2025. TECHNIQUE: Supine abdomen, 1 image(s). RESULT: See impression. IMPRESSION IMPRESSION: Lines, tubes, and devices: There is a feeding tube looping in the gastric body/antrum and terminating in the gastric antrum/pylorus. Common duct stent(s). Multilevel thoracolumbar spinal hardware partially seen. Bowel: No dilated bowel. Other: Osseous degenerative changes. [employer]: SRINI Transcribe Date/Time: Jan 10 2025 7:37P Dictated by : RUSTY OSMAN DO This examination was interpreted and the report reviewed and electronically signed by: RUSTY OSMAN DO on Jan 10 2025 7:39PM EST Authorizing ProviderResult TypeResult StatusMateo Tiwari MDRAD-PAMAFinal Result * XR ABDOMEN 1V SUPINE (01/10/2025 10:36 AM EDT)Anatomical RegionLaterality ModalityAbdomenRadiographic ImagingSpecimen (Source)Anatomical Location / LateralityCollection Method / VolumeCollection TimeReceived Time01/10/2025 10:31 AM EDT Impressions 01/10/2025 10:44 AM EDT IMPRESSION: Feeding tube terminates in the pyloric region/duodenal bulb. [employer]: SRINI ?? Transcribe Date/Time: Jan 10 2025 10:36A Dictated by : ANNE SCHUSTER MD This examination was interpreted and the report reviewed and electronically signed by: RIGO DICKINSON MD on Jan 10 2025 10:41AM ??EST Narrative 01/10/2025 10:44 AM EDT * * *Final Report* * * DATE OF EXAM: Jan 10 2025 10:31AM ?? DESIRAE ?? 5289 ??- ??XR ABDOMEN 1V SUPINE ??/ PROCEDURE REASON: Evaluate tube, line or lead position ? * * * * Physician Interpretation * * * * EXAMINATION: XR ABDOMEN 1V SUPINE Exam Date/Time: ??01/10/2025 10:31 AM CLINICAL HISTORY: Evaluate tube, line or lead position TECHNIQUE: Supine abdomen, single ??image(s). Comparison: 01/02/2025 FINDINGS: Lines, tubes, and devices: Feeding tube terminates in the pyloric region/duodenal bulb. Unchanged common bile duct stent. Bowel: Gas-filled, nondilated bowel loops. Other: There are no abnormal calcifications. Spinal fixation hardware. Procedure Note Provider, [facility] [place] - 01/10/2025 * * *Final Report* * * DATE OF EXAM: Jan 10 2025 10:31AM DESIRAE 5289 - XR ABDOMEN 1V SUPINE / PROCEDURE REASON: Evaluate tube, line or lead position * * * * Physician Interpretation * * * * EXAMINATION: XR ABDOMEN 1V SUPINE Exam Date/Time: 01/10/2025 10:31 AM CLINICAL HISTORY: Evaluate tube, line or lead position TECHNIQUE: Supine abdomen, single image(s). Comparison: 01/02/2025 FINDINGS: Lines, tubes, and devices: Feeding tube terminates in the pyloric region/duodenal bulb. Unchanged common bile duct stent. Bowel: Gas-filled, nondilated bowel loops. Other: There are no abnormal calcifications. Spinal fixation hardware. IMPRESSION IMPRESSION: Feeding tube terminates in the pyloric region/duodenal bulb. [employer]: PSC[employer] Transcribe Date/Time: Jan 10 2025 10:36A Dictated by : ANNE SCHUSTER MD This examination was interpreted and the report reviewed and electronically signed by: RIGO DICKINSON MD on Jan 10 2025 10:41AM EST Authorizing ProviderResult TypeResult StatusEvgeniya Radulinikolai TH-FCZQ-CWMXWhgdc Result * Feeding Tube (01/10/2025 10:24 AM EDT) Narrative Letitia Castorena RN - 01/10/2025 10:24 AM EDT Letitia Castorena RN 01/10/2025 10:25 AM Feeding Tube Date/Start Time: Date/Stop Time: 01/10/2025 10:24 AM Performed by: Letitia Castorena RN Authorized by: Mateo Tiwari MD ?? Where was Patient When this Procedure was Performed: Bedside/Unscheduled Procedure Room Informed Consent Consent Obtained: N/A [place] Protocol A moment to CARE was completed. SIGN IN Personnel directly involved with the procedure wore the appropriate PPE. Special Equipment: Yes (Cortrak 2 EAS) Patient/Surrogate Stated/Verified: Patient name, Date of , Relevant allergies and Intended procedure TIME OUT Relevant labs, photos, and/or imaging studies have been reviewed. Intended patient and procedure match source documents. Medications required for procedure verified. Pre-Procedure Details: Medications: Local Anesthesia (see MAR): ??Lidocaine 2% Procedure Details: Type: ??Post-pyloric Fluoroscopic Guidance Used: ??No Indication: ??Aspiration risk Location: ??Right Insertion Site: naris A 10 Fr (100), ??109 cm feeding tube was lubricated with a water-soluble lubricant and advanced into the pharynx. This patient has an ENfit connection style feeding tube. Duodenal feeding tube distance advanced: 100. The stomach was insufflated with air. ?? Final Position: ??First portion of the duodenum The feeding tube was bridled to the nasal septum. Placement Confirmation: ??MEGANK and LISA ordered Successful Placement: yes ?? Assisting Clinician(s): Benedict GARCIA Post-Procedure Details: Patient Tolerance: Patient tolerated the procedure well with no immediate complications Estimated Blood Loss: none Specimens Sent: none SIGN OUT No specimen collected. All instruments, equipment, possible retained foreign bodies accounted for. The post-procedure POC has been communicated to the patient or surrogate. Post-procedure POC communicated to patient's multidisciplinary team (including bedside nurse for hospitalized patients). Comments: Bridle clip secured at 100 cm at the right naris, 1/2 inch below nasal septum. Flushes well post placement. This patient has an ENFit Corpak feeding tube. ENFit feeding tube connections are only compatible with ENFit feeding sets and ENFit feeding syringes. Authorizing ProviderResult TypeResult StatusMateo Tiwari MDPROCEDUREFinal Result * ECG COMPLETE (01/08/2025 5:12 PM EDT)ComponentValueRef RangeTest Method Analysis TimePerformed AtPathologist SignatureVentricular Xoup24IZILEZZW AND VASCULAR INSTITUTEAtrial Wfwk28LQIAJGUG AND VASCULAR INSTITUTEP-R Qjcekfss061 msHEART AND VASCULAR INSTITUTEQRS Tdymyomt71yrUFRUV AND VASCULAR INSTITUTEQT Eqatrgyx218ccQCEBV AND VASCULAR INSTITUTEQTC Calculation (Bazett)462msHEART AND VASCULAR INSTITUTECalculated P Creola-81degreesHEART AND VASCULAR INSTITUTE Calculated R Dnno62gqlxqdtLCNRD AND VASCULAR INSTITUTECalculated T Axis37 degreesHEART AND VASCULAR INSTITUTESpecimen (Source)Anatomical Location / LateralityCollection Method / VolumeCollection TimeReceived Time01/08/2025 5:12 PM EDT Impressions [facility] - 02/15/2025 7:05 PM EDT UNUSUAL P AXIS AND SHORT MD, PROBABLE JUNCTIONAL RHYTHM ABNORMAL ECG Confirmed by LYNDSEY MARION MD ([id number]) on 02/15/2025 7:05:37 PM Narrative [facility] - 02/15/2025 7:05 PM EDT NAME : CHARLES BLANDON PID : [id number] : 1955 Gender : Male Race : ORD : [id number] Procedure Date : Jan 08 2025 17:12:24 Edit Date : Feb 15 2025 19:05:38 Diagnosis: UNUSUAL P AXIS AND SHORT MD, PROBABLE JUNCTIONAL RHYTHM ABNORMAL ECG Confirmed by LYNDSEY MARION MD ([id number]) on 02/15/2025 7:05:37 PM Test Reason : Check QT Location : 86 : G101 ??G101-12 Overread By : LYNDSEY MARION MD Edited By : LYNDSEY MARION MD Referred By : PAUL SNOWDEN Acquired by : PARAMJIT RICH Authorizing ProviderResult TypeResult Roque LUGOCEKGFinal Result Performing OrganizationAddressCity/State/ZIP CodePhone Number [facility] [address] [place], [place] [id number] * (ABNORMAL) BACTERIAL CULTURE, URINE (01/08/2025 3:16 PM EDT)ComponentValueRef RangeTest MethodAnalysis TimePerformed AtPathologist SignatureCulture, Urine 10,000 -<50,000 CFU/ml Mixed microbiota(A)01/09/2025 8:02 PM EDTCSELECT MEDICAL [facility] LABComment:No further workupSpecimen (Source)Anatomical Location / LateralityCollection Method / VolumeCollection TimeReceived Time UrineMID-STREAM URINE SPECIMEN / UnknownNon Blood / Zeuvbny3101/08/2025 3:16 PM EDT01/08/2025 4:38 PM EDT Narrative Authorizing ProviderResult TypeResult StatusDesiree LUGOCMICROBIOLOGYFinal ResultPerforming OrganizationAddressty/State/ZIP CodePhone Number [facility] [address] [place], [place] [address] [address] [place] [id number], * US CHEST EFFUSION SURVEY (01/07/2025 3:32 PM EDT)Anatomical RegionLaterality ModalityChestUltrasoundSpecimen (Source)Anatomical Location / Laterality Collection Method / VolumeCollection TimeReceived Time01/07/2025 3:32 PM EDT Impressions 01/07/2025 3:56 PM EDT IMPRESSION: Small ??right pleural effusion. Small ??left pleural effusion. [employer]: SRINI ?? Transcribe Date/Time: Jan 07 2025 ??3:53P Dictated by : RISHI GREEN MD This examination was interpreted and the report reviewed and electronically signed by: RISHI GREEN MD on Jan 07 2025 ??3:53PM ??EST Narrative 01/07/2025 3:56 PM EDT * * *Final Report* * * DATE OF EXAM: Jan 07 2025 ??3:32PM ?? [facility] ?? 1234 ??- ??US CHEST EFFUSION SURVEY ??/ PROCEDURE REASON: Pleural effusion suspected ? * * * * Physician Interpretation * * * * LIMITED CHEST ULTRASOUND HISTORY: Shortness of breath. Evaluate pleural effusion for possible thoracentesis. TECHNIQUE: Targeted sonography of the chest was performed. Images were obtained and stored in a permanent archive. RESULT: Right hemithorax: There is small right pleural fluid, insufficient volume for thoracentesis fermin placement. Left hemithorax: There is small left pleural fluid, insufficient volume for thoracentesis fermin placement. Procedure Note Provider, [facility] - 01/07/2025 * * *Final Report* * * DATE OF EXAM: Jan 07 2025 3:32PM [facility] 1234 - US CHEST EFFUSION SURVEY / PROCEDURE REASON: Pleural effusion suspected * * * * Physician Interpretation * * * * LIMITED CHEST ULTRASOUND HISTORY: Shortness of breath. Evaluate pleural effusion for possible thoracentesis. TECHNIQUE: Targeted sonography of the chest was performed. Images were obtained and stored in a permanent archive. RESULT: Right hemithorax: There is small right pleural fluid, insufficient volume for thoracentesis fermin placement. Left hemithorax: There is small left pleural fluid, insufficient volume for thoracentesis fermin placement. IMPRESSION IMPRESSION: Small right pleural effusion. Small left pleural effusion. [employer]: SRINI Transcribe Date/Time: Jan 07 2025 3:53P Dictated by : RISHI GREEN MD This examination was interpreted and the report reviewed and electronically signed by: RISHI GREEN MD on Jan 07 2025 3:53PM EST Authorizing ProviderResult TypeResult StatusKimberlymarge Anthony LUGOOK-WWC-MKFVItcjt Result * BACTERIAL CULTURE, BLOOD (01/06/2025 7:11 PM EDT) Only the most recent of2 resultswithin the time period is included. ComponentValueRef RangeTest MethodAnalysis TimePerformed AtPathologist Signature Culture, BloodNo growth 5 days01/11/2025 11:01 PM EDTCSELECT [facility] LABSpecimen (Source)Anatomical Location / LateralityCollection Method / VolumeCollection TimeReceived TimeBloodBLOOD SPECIMEN / UnknownVenipuncture / Kswxfdr0001/06/2025 7:11 PM EDT01/06/2025 9:50 PM EDT Narrative [facility] - 01/11/2025 11:01 PM EDT This blood culture had less than 8 ml per bottle, which is less volume than recommended. Culture is being performed, but sensitivity may be limited due to the low blood volume. Authorizing ProviderResult TypeResult StatusXuan LUGOCMICROBIOLOGYFinal ResultPerforming OrganizationAddressCity/State/ZIP CodePhone Number [facility] [address] * (ABNORMAL) LIPID PANEL, FASTING (11/18/2024 8:44 AM EDT)ComponentValueRef RangeTest MethodAnalysis TimePerformed AtPathologist SignatureCholesterol, Vqlnf192<200 mg/dLTG PublishingTENNOVA HEALTHCARE - CLARKSVILLEHDL Vsxeefxtyks28(L)> OR = 40 mg/dLTG PublishingTENNOVA HEALTHCARE - CLARKSVILLEGPYJYLMMYOXjkhrifrmlzn049<150 mg/dLTG PublishingTENNOVA HEALTHCARE - CLARKSVILLELDL Cholesterol, Tbynfroffr77ne/dL (calc)TG PublishingTENNOVA HEALTHCARE - CLARKSVILLEComment: Reference range: <100 Desirable range <100 mg/dL for primary prevention; <70 mg/dL for patients with CHD or diabetic patients with > or = 2 CHD risk factors. LDL-C is now calculated using the Ga calculation, which is a validated novel method providing better accuracy than the Friedewald equation in the estimation of LDL-C. Bassem ORNELAS et al. ASHANTI. 2013;310(19): 3428-6750 (http://education.One2start.SP3H/faq/QDW539) TC:HDL Ratio2.9<5.0 (calc)SimpleMistPDBYFQERVET-PHJRDEUDXNICR-GZV DQUTNHBZRAV26<130 mg/dL (calc)[facility] HEALTHComment: For patients with diabetes plus 1 major ASCVD risk factor, treating to a non-HDL-C goal of <100 mg/dL (LDL-C of <70 mg/dL) is considered a therapeutic option. Test Performed at: [address] ??[id number] VIVIEN SALAS MD Specimen (Source)Anatomical Location / LateralityCollection Method / Volume Collection TimeReceived TimeBloodBLOOD SPECIMEN / Dxkoriz9511/18/2024 8:44 AM EDT 11/18/2024 3:32 PM EDT Narrative Authorizing ProviderResult TypeResult StatusShelli Boo APRN.CNPLABORATORY Final ResultPerforming OrganizationAddressCity/State/ZIP CodePhone Number [place] [phone] [place] [address] [address] * HEPATITIS C VIRUS (HCV) RNA, QUANTITATIVE PCR, PLASMA/SERUM (10/15/2024 8:39 AM EDT)ComponentValueRef RangeTest MethodAnalysis TimePerformed AtPathologist SignatureHCV RNANot detectedNot detected MIKA ANN-MARIE [address] 10/15/2024 9:46 PM EDTCSELECT [facility] LABSpecimen (Source) Anatomical Location / LateralityCollection Method / VolumeCollection Time Received TimeBloodBLOOD SPECIMEN / UnknownVenipuncture / Iexsdde4810/15/2024 8:39 AM EDT10/15/2024 8:57 AM EDT Narrative [facility] - 10/15/2024 9:46 PM EDT ann-marie [...] detection of the assay is 15 IU/mL. Authorizing ProviderResult TypeResult StatusBrandi MALDONADO-CLABORATORYFinal ResultPerforming OrganizationAddressCity/State/ZIP CodePhone Number [facility] [address] [facility] [address] [place] [address], [place] * SIGMOIDOSCOPY (09/02/2024 11:29 AM EDT)Anatomical RegionLateralityModality OtherSpecimen (Source)Anatomical Location / LateralityCollection Method / VolumeCollection TimeReceived Time09/02/2024 11:29 AM EDT Narrative 09/02/2024 11:49 AM EDT Q3 Patient Name: Charles Blandon Procedure Date: 09/02/2024 11:29 AM Date of : 1955 Admit Type: Inpatient Age: 69 Gender: Male Note Status: Finalized Attending MD: Thomas Khan MD, [id number] Procedure: ? Flexible Sigmoidoscopy Indications: ? Personal history of colonic polyps Providers: ? Thomas Khan MD Patient Profile: ? Refer to note in patient chart for documentation of ? history and physical. Last Colonoscopy: 1 week ago. Referring Physician: ?? Jeanne Travis MD (Referring MD) Medicines: ? Propofol per Anesthesia Complications: ? No immediate complications. Requesting Provider: ?? Procedure: ? Pre-Anesthesia Assessment: ? - ASA Grade Assessment: III - A patient with severe ? systemic disease. ? After obtaining informed consent, the scope was ? passed under direct vision. The Endoscope was ? introduced through the anus and advanced to the ? descending colon. The flexible sigmoidoscopy was ? accomplished without difficulty. The patient ? tolerated the procedure well. The quality of the ? bowel preparation was adequate. Moderate Sedation: ? Moderate (conscious) sedation was personally administered by an ? anesthesia professional. The following parameters were monitored: ? oxygen saturation, heart rate, blood pressure, and response to care. ? MAC anesthesia was administered by the anesthesia team. Findings: ? A 6 mm polyp was found in the descending colon. The polyp was ? sessile. The polyp was removed with a jumbo cold forceps. Resection ? and retrieval were complete. To prevent bleeding post-intervention, ? one hemostatic clip was successfully placed. Impression: ?- One 6 mm polyp in the descending colon, removed ? with a jumbo cold forceps. Resected and retrieved. ? Clip was placed. Estimated Blood Loss: ??Estimated blood loss: none. Recommendation: ?- Await pathology results. ? - Resume previous diet. Procedure Code(s): ? --- Professional --- ? 93412 Diagnosis Code(s): ? --- Professional --- ? D12.4 ? Z86.0100 CPT copyright 2021 [place] [employer]. All rights reserved. Attending Participation: ? I personally performed the entire procedure. Scope In: 11:40:44 AM Scope Out: 11:45:44 AM MD Thomas Oro MD 09/02/2024 11:47:32 AM This report has been signed electronically by Thomas Khan MD Number of Addenda: 0 Note Initiated On: 09/02/2024 11:29 AM Authorizing ProviderResult TypeResult StatusChrisjyoti Travis MDDIGESTIVE DISEASEFinal Result * COLONOSCOPY SCREENING (08/31/2024 8:53 AM EDT)Anatomical RegionLaterality ModalityOtherSpecimen (Source)Anatomical Location / LateralityCollection Method / VolumeCollection TimeReceived Time08/31/2024 8:53 AM EDT Narrative 08/31/2024 9:26 AM EDT Q3 Patient Name: Charles Blandon Procedure Date: 08/31/2024 8:53 AM Date of : 1955 Admit Type: Inpatient Age: 69 Gender: Male Note Status: Finalized Attending MD: Giana Turner MD, [id number] Procedure: ? Colonoscopy Indications: ? High risk colon cancer surveillance: Personal ? history of colonic polyps Providers: ? Giana Turner MD Patient Profile: ? This is a 69 year old male. Refer to note in ? patient chart for documentation of history and ? physical. Last Colonoscopy: several years ago. Referring Physician: ?? Richard Robertson MD (Referring MD) Medicines: ? Monitored Anesthesia Care Complications: ? No immediate complications. Requesting Provider: ?? Procedure: ? Pre-Anesthesia Assessment: ? - Prior to the procedure, a History and Physical ? was performed, and patient medications and ? allergies were reviewed. The patient's tolerance of ? previous anesthesia was also reviewed. The risks ? and benefits of the procedure and the sedation ? options and risks were discussed with the patient. ? All questions were answered, and informed consent ? was obtained. Prior Anticoagulants: The patient has ? taken no anticoagulant or antiplatelet agents. ASA ? Grade Assessment: II - A patient with mild systemic ? disease. After reviewing the risks and benefits, ? the patient was deemed in satisfactory condition to ? undergo the procedure. ? After I obtained informed consent, the scope was ? passed under direct vision. Throughout the ? procedure, the patient's blood pressure, pulse, and ? oxygen saturations were monitored continuously. The ? Colonoscope was introduced through the anus and ? advanced to the cecum, identified by appendiceal ? orifice and ileocecal valve. The colonoscopy was ? performed without difficulty. The patient tolerated ? the procedure well. The quality of the bowel ? preparation was fair. The ileocecal valve, ? appendiceal orifice, and rectum were photographed. Moderate Sedation: ? MAC anesthesia was administered by the anesthesia team. Findings: ? The perianal and digital rectal examinations were normal. ? A 5 mm polyp was found in the transverse colon. The polyp was ? sessile. The polyp was removed with a cold snare. Resection and ? retrieval were complete. Verification of patient identification for ? the specimen was done. Estimated blood loss was minimal. ? Multiple small-mouthed diverticula were found in the sigmoid colon ? and descending colon. There is a polypoid lesion consistent with ? inflammatory polyp inside a diverticulum 40 cm from anus. Polypectomy ? was not performed. ? Internal hemorrhoids were found during retroflexion. The hemorrhoids ? were small. ? A moderate amount of semi-liquid stool was found in the entire colon, ? interfering with visualization. Lavage of the area was performed ? using a large amount of sterile water, resulting in incomplete ? clearance with fair visualization. Impression: ?- Preparation of the colon was fair. ? - One 5 mm polyp in the transverse colon, removed ? with a cold snare. Resected and retrieved. ? - There is a polypoid lesion consistent with ? inflammatory polyp inside a diverticulum 40 cm from ? anus. Polypectomy was not performed. ? - Diverticulosis in the sigmoid colon and in the ? descending colon. ? - Internal hemorrhoids. ? - Stool in the entire examined colon. Estimated Blood Loss: ??Estimated blood loss was minimal. Recommendation: ?- [facility]. ? - Resume previous diet. ? - Repeat colonoscopy in 1 year for surveillance. ? - Await pathology results. ? - Patient has a contact number available for ? emergencies. The signs and symptoms of potential ? delayed complications were discussed with the ? patient. Return to normal activities tomorrow. ? Written discharge instructions were provided to the ? patient. ? - Continue present medications. Procedure Code(s): ? --- Professional --- ? 67074 CPT copyright 2020 [place] [employer]. All rights reserved. Attending Participation: ? I personally performed the entire procedure. Scope In: 9:04:37 AM Scope Out: 9:18:14 AM MD Giana White MD 08/31/2024 9:24:38 AM This report has been signed electronically by Giana Turner MD Number of Addenda: 0 Note Initiated On: 08/31/2024 8:53 AM Authorizing ProviderResult TypeResult StatusAmargret Ailyn MDDIGESTIVE DISEASE Final Result from Last 3 Months or Most Recently Relevant to Health Maintenance Insurance * Guarantor: Charles Blandon TypeRelation to PatientDate of BirthPhone Billing VjuljdmRgqyybcbndVqgg73/18/1956 [address] [place] [address] * Guarantor: [facility], CorporateAccount TypeRelation to Patient Date of BirthPhoneBilling AddressCorporateOther [address] [place] [address] Mail Code [id number] [place] [address] * Guarantor: Cherie BLANDON TypeRelation to PatientDate of BirthPhone Billing AddressP/F [facility]1955 [address] [place] [address] * Guarantor: Cherie BLANDON TypeRelation to PatientDate of BirthPhone Billing AddressP/F [facility]1955 [address] [place] [address] * Guarantor: Cherie BLANDON TypeRelation to PatientDate of BirthPhone Billing AddressP/F [facility] Bphypfm0308/02/1955 [facility] [place] [address] * Guarantor: Cherie BLANDON TypeRelation to PatientDate of BirthPhone Billing AddressP/F [facility] Bpzwexx5608/02/1955 [address] [place] [address] * Guarantor: Cherie BLANDON TypeRelation to PatientDate of BirthPhone Billing AddressP/F [facility] Utkgwqe8908/02/1955 [address] [place] [address] * Guarantor: Cherie BLANDON TypeRelation to PatientDate of BirthPhone Billing AddressP/F [facility]1955 [address] [place] [address] * Guarantor: Cherie BLANDON TypeRelation to PatientDate of BirthPhone Billing AddressP/F [facility] [place] [address] * Guarantor: Cherie BLANDON TypeRelation to PatientDate of BirthPhone Billing AddressP/F [facility]1955 [address] [place] [address] * Guarantor: Cherie BLANDON TypeRelation to PatientDate of BirthPhone Billing AddressP/F [facility]1955 [address] [place] [address] * Guarantor: Cherie BLANDON TypeRelation to PatientDate of BirthPhone Billing AddressP/F [facility] Emzzisv9408/02/1955 [address] [place] [address] * Guarantor: Cherie BLANDON TypeRelation to PatientDate of BirthPhone Billing AddressP/F [facility] Prxlkhm2408/02/1955 [address] [place] [address] * Guarantor: Cherie BLANDON TypeRelation to PatientDate of BirthPhone Billing AddressP/F [facility] Vijewel5808/02/1955 [place] [address] Advance Directives TypeDate RecordedPatient RepresentativeExplanationAdvance Directive(s)10/08/2024 3:04 PM * Full Code (Latest Code Status on File) Date ActivatedDate InactivatedComments12/12/2024 11:16 AM01/14/2025 9:06 PM QuestionAnswerCommentsFull Code Order Discussed With:* Patient and Surrogate Decision Maker Surrogate Decision Maker Relationship:* Spouse * Full Code Date ActivatedDate InactivatedComments10/16/2024 1:21 PM10/30/2024 10:09 PMQuestion AnswerCommentsFull Code Order Discussed With:* Discussion Not Medically Appropriate * Full Code Date ActivatedDate InactivatedComments09/09/2024 7:40 PM09/29/2024 8:28 PMQuestion AnswerCommentsFull Code Order Discussed With:* Discussion Not Medically Appropriate * Full Code Date ActivatedDate InactivatedComments08/23/2024 5:32 PM09/09/2024 4:42 PMQuestion AnswerCommentsFull Code Order Discussed With:* Patient Care Teams Team MemberRelationshipSpecialtyStart DateEnd Date Rusty Delgado II, MD [address] [facility] [address] [place] [address] PCP - GeneralInternal Medicine05/28/24 Irena Johnson MD [address] [facility] [address] [place] [id number] ZwedbkoovUjrnqpmnvrqdbsqn92/26/24 Vanessa Arora MD [address] [place] [address] Primary Staff PhysicianCardiology05/02/24 Carina Ziegler RN [facility] [address] [place] [address] Registered NurseTransplant Center09/17/24 [place] [address] [facility] [address] [place], [place] [id number] PhysicianNerology11/19/24
--- OUTSIDE RECORDS SUMMARY | 2025-04-07 09:21 | XMS_ITS | Patient Health Record ---
Author Organization [facility] Address Main Office [address] [place] [place] [address] Care Team Providers Care Vanstone Machine Operator Name Role Phone ANTHONY MORAN Primary Care Provider [phone] Reason For Referral No Information Medications Medication [...] Intramuscular 02/10/2019 Administered Moderna SARS Covid-19 VaccineIM Abiolfvgcspvq53/10/2021dministeredModerna SARS Covid-19 VaccineIM Jdoxhwpkbvqvc57/10/2021Administered Problems Problem Type SNOMED Code ICD Code Onset Dates Problem Status W/U Status Risk Notes Problem Essential hypertensi on (55770076) Essential (primary) hypertension (I10) 07/26/2018 Active confirmed ProblemPrimary gout (98211601)Idiopathic gout, unspecified ankle and foot (M10.079)07/26/2018ActiveconfirmedProblemInflammation of bursa of olecranon (959078562)Olecranon bursitis, right elbow (M70.21)11/06/2018Activeconfirmed ProblemHyperglycemia due to type 2 diabetes mellitus (542342178424393)DIABETES MELLITUS WITH HYPERGLYCEMIA, TYPE 2 (E11.65)08/08/2018ActiveconfirmedProblem Essential hypertension (65380959)ESSENTIAL HYPERTENSION (I10)11/06/2018Active confirmedProblemBody mass index 30.00 to 34.99 (474909432460009)BMI 32.0-32.9, ADULT (Z68.32)07/26/2018ActiveconfirmedProblemVertigo (521319671)VERTIGO (R42) 11/06/2018Activeconfirmed Plan Of Treatment No Information Insurance Providers Payer Name Payer Address Payer Phone Subscriber Number Group Number Insured Name Patient Relationship to Insured Coverage Start Date Coverage End Date MEDICARE [address] [place] [address] [place] [address] [id number], WILLIAMSelf - patient is the [id number] MEDICARE [address] [address] [place], [place] [id number] Gus BLANDON - patient is the insured
--- OUTSIDE RECORDS SUMMARY | 2025-04-07 09:21 | XMS_ITS | Clinical Summary ---
Author Organization [facility] Address [address] [place] [address] Care Team Providers Care Special Investigation Unit Investigator Name Role Phone Rusty Delgado MD Unavailable [phone] Rusty Delgado MD Primary Care Provider [phone] Allergies No known active allergies Medications MedicationSigDispense [...] by mouth every 8 (eight) hours if sozbmi1910/30/2024tive famotidine (Pepcid) 20 MG tablet Take 20 mg by mouth in the morning and 20 mg in the evening.11/12/2024tive furosemide (Lasix) 40 MG tablet Take 40 mg by mouth in the morning.10/31/2024tive linaCLOtide (Linzess) 145 MCG capsule Take 145 mcg by mouth in the morning.11/12/2024tive magnesium hydroxide (Milk of Magnesia) 400 MG/5ML suspension Take 30 mL by mouth Daily as voiaeo0411/15/2024tive melatonin 3 MG tablet Take 3 mg by mouth at phyhylw5511/12/2024tive methocarbamol (Robaxin) 750 MG tablet Take 750 mg by mouth 3 (three) times a day as dgnhlm5811/12/2024tive midodrine (Proamatine) 10 MG tablet Take 10 mg by mouth in the morning and 10 mg at noon and 10 mg in the evening. 11/12/2024tive pantoprazole (ProtoNix) 40 MG EC tablet Take 40 mg by mouth in the morning and 40 mg in the evening. Take before meals. 11/12/2024tive tamsulosin (Flomax) 0.4 MG 24 hr capsule Take 0.4 mg by mouth at rtuwfgv7111/12/2024tive traZODone (Desyrel) 50 MG tablet Take 50 mg by mouth at kdtwuzo0511/12/2024tive ursodiol (Actigall) 300 MG capsule Take 300 [...] back pain without /08/2025VRE (vancomycin- resistant Enterococci) lzyrjnbtt19/06/2025Intra-abdominal infection after surgical mwmljgnty85/06/2025ytomegalovirus (CMV) lapjfsq0010/09/2024nemia due to multiple qmfjkrobsq43/24/2025ritical illness fdlypusg93/15/2025Weakness 09/24/2024Steroid-induced pibyrkmejhlsm04/04/2025ute renal zzsnopc1109/14/2024 History of liver wvrejqxgty69/26/2025hronic kidney gzxsgnm2509/06/2024 Hepatocellular vediatjlc04/17/2025Portal hypertension with esophageal varices 08/31/2024Polyp of colon08/31/2024KD stage 3a, GFR 45-59 ml/min08/27/2024Severe protein-calorie malnutrition (HHS-HCC)08/27/20247051Jhgadqsyhgsf18/13/2025Hepatic ubglhkhvztkfsw11/09/2025History of tobacco abuse03/08/2024Nonalcoholic steatohepatitis (JARAMILLO)03/08/2024leural jsyrmngs75/04/2024ge-related nuclear cataract of both eyes01/18/2024ortic root hecpfvxugr58/05/2024 Assessment & Plan (12/21/2023 9:15 AM EDT): 3.8 cm ECHO 12/20/2023 QUESADA (dyspnea on exertion)12/13/2023Other neaifwy7912/13/2023Secondary esophageal varices without /28/2024lcoholic cirrhosis of liver with ascites 10/13/20239487Fxkfbzrvh06/18/1180Txfcpl31/18/2024bnormal weight loss07/18/2023 Episodic altered efosnlkfx05/02/2024Grade II jotpqadfewb73/07/2024Fissure in ano 05/18/2023Hx of colonic teetph2803/21/20230643Cnalbec49/30/2023arrett's esophagus 11/17/2022rystalline deposits in /03/7541Syrcgjuozfyl74/03/2023 Epiretinal drddmsjy43/03/2023Fatty liver11/17/20223166Qwcetmpz40/03/2023Metabolic syndrome X11/17/2022Nuclear senile ersxizcx06/03/2784Wqgfikoswueczmgq84/03/2023 Olecranon xsddztko84/23/0084Zzvrsgn48/23/2019Hyperglycemia due to type 2 diabetes kigzbqvx42/24/2019Class 1 ixjfuzh5107/26/2018Primary gout07/26/2018 Ventricular premature beats06/28/2017Basal cell carcinoma of skin06/27/2017 Incisional dvztfo3712/06/2012GERD (gastroesophageal reflux disease)11/26/2012 Tvihyxjtsqlq14/12/2013 Resolved Problems ProblemNoted DateDiagnosed DateResolved DateBenign essential hypertension 4Controlled type 2 diabetes mellitus without complication, without long-term current use of gbfvgqx32HTN (hypertension) Encounters DateTypeDepartmentCare OqwsXtfhatzuqva63/04/2025bstract [facility] [address] [place] [address] Rusty Delgado MD 03/18/2025bstract [facility] [address] [place] [address] Rusty Delgado MD 03/18/2025bstract [facility] [address] [place] [address] Rusty Delgado MD 03/18/2025bstract [facility] [address] [place] [address] Rusty Delgado MD 03/18/2025bstract [facility] [address] [place] [address] Rusty Delgado MD 03/10/2025bstract [facility] [address] [place] [address] Rusty Delgado MD 03/10/2025Telephone [facility] [address] [place] [address] Rusty Delgado MD 03/06/2025Telephone [facility] [address] [place] [address] Rusty Delgado MD 02/24/2025bstract [facility] [address] [place] [address] Rusty Delgado MD 02/24/2025bstract [facility] [address] [place] [address] Rusty Delgado MD 02/17/2025Telephone [facility] [address] [place] [address] Ann Castellon LPN 02/03/2025bstract [facility] [address] [place] [address] Rusty Delgado MD 01/24/2025linisync Result Encounter [facility] External [facility] Unsolicited Provider, Generic External Data 01/24/2025linisync Result Encounter [facility] External Department Unsolicited Provider, Generic External Data 01/20/2025linisync Result Encounter [facility] External Department Unsolicited Provider, Generic External Data 01/16/2025linisync Result Encounter [facility] External Department Unsolicited Provider, Generic External Data 01/15/2025linisync Result Encounter [facility] External Department Unsolicited Provider, Generic External Data 5Clinisync Result Encounter [facility] External Department Unsolicited Provider, Generic External Data 5Clinisync Result Encounter [facility] External Department Unsolicited Provider, Generic External Data from Last 3 Months Immunizations ImmunizationAdministration DatesNext DueHep A, Adult08/28/2024,05/02/2024 HepB-CpG06/15/2024,05/02/2024Influenza, High Dose Seasonal, Preservative Free 03/04/2024,02/01/2022,02/17/2021Influenza, Seasonal, Quadrivalent, Adjuvanted 01/24/2023Influenza, Vgjnppxwycr51/09/2013Influenza, injectable, quadrivalent 02/13/2017Influenza, injectable, quadrivalent, preservative free02/10/2019 Influenza, seasonal, idqelbdsbz21/17/2016,02/10/2015,01/14/2014Pneumococcal Conjugate PCV 4Pneumococcal Conjugate PCV 4RSV, recombinant, protein subunit RSVpreF, adjuvant reconstitu, 120mcg/0.5mL, PF (Arexvy)06/10/2024Tdap105/23/2021Zoster, Oifkkkgolra72/14/2023Zoster, live 03/24/2015 Family History Medical HistoryRelationNameCommentsHypertensionFatherWilliam E KoenigBreast cancerNeg HxColon cancerNeg HxOvarian cancerNeg HxRelationNameStatusComments Civpzjg2RgeedvEiaiana E KoenigDeceasedMotherDeceasedSister1 Social History Tobacco UseTypesPacks/DayYears UsedDateSmoking Tobacco: FormerCigarettesQuit: 1990Smokeless Tobacco: Never Tobacco Cessation:Counseling Given: Not Answered Alcohol UseStandard Drinks/WeekCommentsYes0 (1 standard drink = 0.6 oz pure alcohol)2-3 times per week, 1-2 drinks at a cvzeP7068 Health LiteracyAnswerDate RecordedHow often do you need to have someone help you when you read instructions, pamphlets, or other written material from your doctor or pharmacy? Xpoeif0912/12/2023Social Connection and Isolation PanelAnswerDate RecordedIn a typical week, how many times do you talk on the phone with family, friends, or neighbors?Never12/12/2023How often do you get together with friends or relatives?Never12/12/2023How often do you attend rastafari or latter-day services? Never12/12/2023o you belong to any clubs or organizations such as rastafari groups, unions, fraternal or athletic groups, or school groups?No12/12/2023How often do you attend meetings of the clubs or organizations you belong to?Never 12/12/2023re you , , , , never , or living with a partner?Cshptcp9112/12/2023UDIT-CAnswerDate RecordedQ1: How often do you have a [...] hard at all12/12/2023HQ-2AnswerDate Recorded Patient Health Questionnaire-2 [facility]307[facility] [facility] - Occupational Stress QuestionnaireAnswerDate RecordedDo you feel stress - tense, restless, nervous, or anxious, or unable to sleep at night because your mind is troubled all the time - these days?To some vfsjmf1212/12/2023Exercise Vital SignAnswerDate RecordedOn average, how many days [...] homeless or living in a snf (including now)?No12/12/2023Sex and Gender InformationValueDate RecordedSex Assigned at DhcdhYfqb36/27/2024 1:36 PM EDTLegal KfkXacn0306/29/2022 11:50 PM EDTGender FwyrlwjkRdin76/27/2024 1:36 PM EDTSexual IimmxeqwxzkIelxrtt90/27/2024 1:36 PM EDT Last Filed Vital Signs Vital SignReadingTime TakenCommentsBlood Jmivxsgx078/7605 11:11 AM EDT Iygse165708/19/2024 11:11 AM EJDOcwzpsknvqj74.1 ??C (97 ??F)08/19/2024 11:11 AM EDTRespiratory Enlz370508/19/2024 11:11 AM EDTOxygen Xnsngbfrax43%08/19/2024 11:11 AM EDTInhaled Oxygen Concentration--Pzshfo42.5 kg (193 lb)08/19/2024 11:11 AM BFMMmejuc558.3 cm (5' 9 )08/19/2024 11:11 AM EDTBody Mass Index28.505 11:11 AM EDT Plan of Treatment Health MaintenanceDue DateLast DoneCommentsCT Bxlszkyyedpi18/18/1954FIT-DNA 1953FIT1953FOBT1953OVID-19 Vaccine (3 - Moderna risk series) , 1Diabetes: Urine Protein Jsbefqzgr00/09/2025 4Diabetes: Hemoglobin A1C, 11/15/2023, 05/26/2023, Additional history existsInfluenza Vaccine (#1), 01/24/2023, 02/01/2022, Additional history existsDiabetes: Retinopathy Zprdvzrfp38/03/2026 01/18/2024, 01/18/2024, 01/18/2024, Additional history existsSigmoidoscopy olonoscopy, 08/31/2024, 08/08/2019 Colorectal Cancer Fcdbgnyil07/17/2035Pneumococcal Vaccine: 65+ YearsCompleted 03/04/2024, 03/04/2024 Procedures Procedure NamePriorityDate/TimeAssociated DiagnosisCommentsCT THORACIC SPINE WO IVCON01/24/2025 2:[address] LUMBAR SPINE WO IVCON01/24/2025 2:16 PM EDT [facility] CMV DNA DETECTION AND SUKOHRadvrgw47/06/2025 4:30 AM EDT [facility] TACROLIMUS BLD-IFNRBnhqine68/06/2025 4:30 AM EDT [facility] GGT SERPL-ARLFOuzqsns27/06/2025 4:30 AM EDT [facility] MAGNESIUM SERPL-GLGJOojsabc12/06/2025 4:30 AM EDT [facility] CRP SERPL-FMRNOnrjqks76/06/2025 4:30 AM EDT [facility] COMP METAB 2000 PNL YCOONQlaamqj55/06/2025 4:30 AM EDT [facility] NT-PROBNP SERPL-WBBLEdkatmx74/06/2025 4:30 AM EDT [facility] PHOSPHATE SERPL-TKDJJynsmmu28/06/2025 4:30 AM EDT [facility] CBC W AUTO DIFF ODPBfsobrp59/06/2025 4:30 AM EDT [facility] TACROLIMUS BLD-MQFDGizsbab98/02/2025 4:47 AM EDT [facility] GGT SERPL-NDMNCpxniwg85/02/2025 4:47 AM EDT [facility] CBC W AUTO DIFF ZWPWkumwrh57/02/2025 4:47 AM EDT [facility] MAGNESIUM SERPL-DQNZJgrdvpv90/02/2025 4:47 AM EDT [facility] CRP SERPL-DOYXDavdkqt68/02/2025 4:47 AM EDT [facility] COMP METAB 2000 PNL EWFUYTcuvrul89/02/2025 4:47 AM EDT [facility] PHOSPHATE SERPL-YKXZFdqjqbt80/02/2025 4:47 AM EDT [facility] NT-PROBNP SERPL-ASHMHqlyrqz78/02/2025 4:47 AM EDT [facility] GGT SERPL-TVMUJcqzzry84/01/2025 5:30 AM EDT [facility] CBC W AUTO DIFF OVAGaowzet88/01/2025 5:30 AM EDT [facility] MAGNESIUM SERPL-AWROHwwwoqy52/01/2025 5:30 AM EDT [facility] CRP SERPL-QPIXOkjpdvc96/01/2025 5:30 AM EDT [facility] COMP METAB 2000 PNL GZSEQNhqsavw19/01/2025 5:30 AM EDT [facility] TACROLIMUS BLD-EUKHQcnwxdj15/01/2025 5:01 AM EDT [facility] BACTERIA UR BCNIYkigyjl17/24/2025 3:16 PM EDT [facility] BACTERIA BLD NPHLWhydpku91/22/2025 7:11 PM EDT [facility] BACTERIA BLD QOODPewcziy27/22/2025 5:11 PM EDT POCT GLYCATED HEMOGLOBIN, LOLGWXmwsnbz93/31/2024 11:40 AM EDT Metabolic syndrome X MICROALBUMIN / CREATININE URINE FSXBYViryxcp23/09/2024 8:31 AM EST Screening for prostate cancer Benign essential hypertension Thrombocytopenia Fatty liver Dyslipidemia COLOR FUNDUS PHOTOGRAPHY - OU - BOTH SIJGKxxpdnp10/07/2023 12:00 PM EST MKXDFYMCDADIxbpggj94/23/2020 12:00 PM EDT from Last 3 Months [...] processes versus sequela of prior fractures, unchanged Guitar Repair Technician: SRINI ?? Transcribe Date/Time: Jan 24 2025 ??4:06P Dictated by : KHLOE DELGADO MD This examination was interpreted and the report reviewed and electronically signed by: KHLOE DELGADO MD on Jan 24 2025 ??3:21PM ??EST This document has been addended by: KHLOE DELGADO MD on Jan 24 2025 ?? 4:10PM ??EST [id number]^AGFA_IDC^SI^ACN Narrative 01/24/2025 3:23 PM EDT * * [...] and assume there are 5 lumbar-type vertebrae. Guitar Repair Technician: PSCB ?? Transcribe Date/Time: Jan 24 2025 ??2:46P Dictated by : KHLOE DELGADO MD This examination was interpreted and the report reviewed and electronically signed by: KHLOE DELGADO MD on Jan 24 2025 ??3:21PM ??EST [id number]^AGFA_IDC^SI^ACN Procedure Note Radiology, Radiologist, - 01/24/2025 * * *Final Report* * * DATE OF EXAM: Jan 24 2025 2:16PM [facility] 0514 - CT THORACIC SPINE WO [...] and assume there are 5 lumbar-type vertebrae. Guitar Repair Technician: SRINI Transcribe Date/Time: Jan 24 2025 2:46P Dictated by : KHLOE DELGADO MD This examination was interpreted and the report reviewed and electronically signed by: KHLOE DELGADO MD on Jan 24 2025 3:21PM EST [id number]^AGFA_IDC^SI^ACN Authorizing ProviderResult TypeResult StatusGeneric External Data Provider [...] processes versus sequela of prior fractures, unchanged Guitar Repair Technician: SRINI ?? Transcribe Date/Time: Jan 24 2025 ??4:06P Dictated by : KHLOE DELGADO MD This examination was interpreted and the report reviewed and electronically signed by: KHLOE DELGADO MD on Jan 24 2025 ??3:21PM ??EST This document has been addended by: KHLOE DELGADO MD on Jan 24 2025 ?? 4:10PM ??EST [id number]^AGFA_IDC^SI^ACN Narrative 01/24/2025 3:23 PM EDT * * *Final Report* * * DATE OF EXAM: Jan 24 2025 ??2:16PM ?? [facility] ?? 0508 ??- ??CT LUMBAR SPINE [...] and assume there are 5 lumbar-type vertebrae. Guitar Repair Technician: SRINI ?? Transcribe Date/Time: Jan 24 2025 ??2:46P Dictated by : KHLOE DELGADO MD This examination was interpreted and the report reviewed and electronically signed by: KHLOE DELGADO MD on Jan 24 2025 ??3:21PM ??EST [id number]^AGFA_IDC^SI^ACN Procedure Note Radiology, Radiologist, - 01/24/2025 * * *Final Report* * * DATE OF EXAM: Jan 24 2025 2:16PM [facility] 0508 - CT LUMBAR SPINE WO [...] and assume there are 5 lumbar-type vertebrae. Guitar Repair Technician: [facility] Transcribe Date/Time: Jan 24 2025 2:46P Dictated by : KHLOE DELGADO MD This examination was interpreted and the report reviewed and electronically signed by: KHLOE DELGADO MD on Jan 24 2025 3:21PM EST [id number]^AGFA_IDC^SI^ACN Authorizing ProviderResult TypeResult StatusGeneric External Data Provider [...] situation. Test performed by chemiluminescent immunoassay using [employer] i.Specimen (Source)Anatomical Location / LateralityCollection Method / VolumeCollection TimeReceived Time01/20/2025 4:30 AM EDT1 5:29 PM EDT Narrative CLINISYNC - 01/20/2025 7:30 PM EDT Specimen Type: BLOOD SPECIMEN Ordering Facility: [facility] ?Address: [address] [place] [address] Original Ordering Provider: DAVID BLACKBURN Authorizing ProviderResult TypeResult StatusGeneric External Data Provider CLINISYNCFinal ResultPerforming OrganizationAddressCity/State/ZIP CodePhone Number REIDISYGARRICK CC [address] [address] * [facility] PHOSPHATE SERPL-MCNC (01/20/2025 4:30 AM EDT) Only the most recent of2 resultswithin the time period is included. ComponentValueRef RangeTest MethodAnalysis TimePerformed AtPathologist Signature [facility] PHOSPHATE SERPL-MCNC4.12.7 - 4.8 mg/dLCCFSpecimen (Source)Anatomical Location / LateralityCollection Method / VolumeCollection TimeReceived Time 01/20/2025 4:30 AM EDT1 8:56 AM EDT Narrative CLINISYNC - 01/20/2025 10:57 AM EDT Specimen Type: BLOOD SPECIMEN Ordering Facility: [facility] ?Address: [address] [place] [address] Original Ordering Provider: DAVID BLACKBURN Authorizing ProviderResult TypeResult StatusGeneric External Data Provider CLINISYNCFinal ResultPerforming OrganizationAddressty/State/ZIP CodePhone Number CLINISYNC [facility] [address] [place] [address] * (ABNORMAL) [facility] NT-PROBNP SERPL-MCNC (01/20/2025 4:30 AM EDT) Only the most recent of2 resultswithin the time period is included. ComponentValueRef RangeTest MethodAnalysis TimePerformed AtPathologist Signature [facility] NT-PROBNP SERPL-RFQQ933(H)<125 pg/mLCCFSpecimen (Source)Anatomical Location / LateralityCollection Method / VolumeCollection TimeReceived Time01/20/2025 4:30 AM EDT1 8:56 AM EDT Narrative CLINISYNC - 01/20/2025 11:01 AM EDT Specimen Type: BLOOD SPECIMEN Ordering Facility: [facility] ?Address: [address] [place] [address] Original Ordering Provider: DAVID BLACKBURN Authorizing ProviderResult TypeResult StatusGeneric External Data Provider CLINISYNCFinal ResultPerforming OrganizationAddressCity/State/ZIP CodePhone Number [facility] [address] [place] [address] * (ABNORMAL) [facility] GGT SERPL-CCNC (01/20/2025 4:30 AM EDT) Only the most recent of3 resultswithin the time period is included. ComponentValueRef RangeTest MethodAnalysis TimePerformed AtPathologist Signature [facility] GGT SERPL-NLEU599(H)10 - 70 U/LCCFSpecimen (Source)Anatomical Location / LateralityCollection Method / VolumeCollection TimeReceived Time01/20/2025 4:30 AM EDT1 1:12 PM EDT Narrative CLINISYNC - 01/20/2025 3:18 PM EDT Specimen Type: BLOOD SPECIMEN Ordering Facility: [facility] ?Address: [address] [place] [address] Original Ordering Provider: DAVID BLACKBURN Authorizing ProviderResult TypeResult StatusGeneric External Data Provider CLINISYNCFinal ResultPerforming OrganizationAddressCity/State/ZIP CodePhone Number KALYNNC [facility] [address] [facility] [address] [place] [phone] * (ABNORMAL) [facility] CRP SERPL-MCNC (01/20/2025 4:30 AM EDT) Only the most recent of3 resultswithin the time period is included. ComponentValueRef RangeTest MethodAnalysis TimePerformed AtPathologist Signature [facility] CRP SERPL-MCNC17.1(H)<0.9 mg/dLCCFSpecimen (Source)Anatomical Location / LateralityCollection Method / VolumeCollection TimeReceived Time01/20/2025 4:30 AM EDT1 8:56 AM EDT Narrative CLINISYNC - 01/20/2025 11:11 AM EDT Specimen Type: BLOOD SPECIMEN Ordering Facility: [facility] ?Address: [address] [place] [address] Original Ordering Provider: DAVID BLACKBURN Authorizing ProviderResult TypeResult StatusGeneric External Data Provider CLINISYNCFinal ResultPerforming OrganizationAddressCity/State/ZIP CodePhone Number M[facility]ORY [facility] [place] [address] [place] [address] * [facility] CMV DNA DETECTION AND QUANT (01/20/2025 4:30 AM EDT)ComponentValueRef RangeTest MethodAnalysis TimePerformed AtPathologist SignatureCCF CMV DNA PLAS JESSICA+PROBE-ACNCNot detectedNot DetectedCCFSpecimen (Source)Anatomical Location / LateralityCollection Method / VolumeCollection TimeReceived Time01/20/2025 4:30 AM EDT1 5:29 PM EDT Narrative CLINISYNC - 01/20/2025 11:41 PM EDT Specimen Type: BLOOD SPECIMEN Ordering Facility: [facility] ?Address: [address] [place] [address] Original Ordering Provider: DAVID BLACKBURN Authorizing ProviderResult TypeResult StatusGeneric External Data Provider CLINISYNCFinal ResultPerforming OrganizationAddressty/[facility]/ZIP CodePhone Number REIDYI [facility] [place] [address] [address] * (ABNORMAL) [facility] CBC W AUTO DIFF BLD (01/20/2025 4:30 AM EDT) Only the most recent of3 resultswithin the time period is included. ComponentValueRef RangeTest MethodAnalysis TimePerformed AtPathologist Signature [facility] WBC # BLD AUTO15.14(H)3.70 - 11.00 k/uLCCFCCF RBC # BLD AUTO2.50(L)4.20 - 6.00 m/uLCCFCCF HGB BLD-MCNC8.1(L)13.0 - 17.0 g/dLCCFCCF HCT VFR BLD AUTO25.6(L) 39.0 - 51.0 %CCFCCF MCV RBC HXTF483.4(H)80.0 - 100.0 fLCCFCCF MCH RBC QN AUTO 32.426.0 - 34.0 pgCCFCCF MCHC RBC AUTO-MCNC31.630.5 - 36.0 g/dLCCFCCF RDW RBC-RTO19.9(H)11.5 - 15.0 %CCFCCF PLATELET # BLD [id number] - 400 k/uLCCFCCF PMV BLD AUTO10.69.0 - [...] EDT Specimen Type: BLOOD SPECIMEN Ordering Facility: [facility] ?Address: [address] [place] [address] Original Ordering Provider: DAVID BLACKBURN Authorizing ProviderResult TypeResult StatusGeneric External Data Provider CLINISYNCFinal ResultPerforming OrganizationAddressty/State/ZIP CodePhone Number REIDISYNC [facility] [address] [place] [address] * (ABNORMAL) [facility] MAGNESIUM SERPL-MCNC (01/20/2025 4:30 AM EDT) Only the most recent of3 resultswithin the time period is included. ComponentValueRef RangeTest MethodAnalysis TimePerformed AtPathologist Signature [facility] MAGNESIUM SERPL-MCNC1.6(L)1.7 - 2.3 mg/dLCCFSpecimen (Source)Anatomical Location / LateralityCollection Method / VolumeCollection TimeReceived Time 01/20/2025 4:30 AM EDT1 8:56 AM EDT Narrative CLINISYNC - 01/20/2025 11:11 AM EDT Specimen Type: BLOOD SPECIMEN Ordering Facility: [facility] ?Address: [address] [place] [address] Original Ordering Provider: DAVID BLACKBURN Authorizing ProviderResult TypeResult StatusGeneric External Data Provider CLINISYNCFinal ResultPerforming OrganizationAddBryn Mawr Hospitalty/[facility]/ZIP CodePhone Number CLINISYNC [facility] [address] [place] [phone] * (ABNORMAL) [facility] COMP METAB 2000 PNL SERPL (01/20/2025 4:30 AM EDT) Only the most recent of3 resultswithin the time period is included. ComponentValueRef RangeTest MethodAnalysis TimePerformed AtPathologist Signature [facility] PROT SERPL-MCNC6.0(L)6.3 - 8.0 g/dLCCFCCF ALBUMIN SERPL-MCNC2.9(L)3.9 - 4.9 g/dLCCFCCF CALCIUM SERPL-MCNC8.78.5 - 10.2 mg/dLCCFCCF BILIRUB SERPL-MCNC0.30.2 - 1.3 mg/dLCCFCCF ALP SERPL-MWXP385(H)38 - 113 U/LCCFCCF AST SERPL-ZHSF0018 - 40 U/LCCFCCF ALT SERPL-LFAB1707 - 54 U/LCCFCCF GLUCOSE SERPL-ZUSA4850 - 99 mg/dLCCF Comment: The [place] Diabetes Association (ADA) provides guidance for cutoff [...] Standards of Medical Care in Diabetes 2016, [place] [employer]. Diabetes Care. 2016.39(Suppl 1). [facility] BUN SERPL-UDAO066 - 24 mg/dLCCFCCF CREAT SERPL-MCNC0.970.73 - 1.22 mg/dLCCF CCF SODIUM SERPL-NVLZ208(L)136 - 144 mmol/LCCFCCF POTASSIUM SERPL-SCNC5.3(H)3.7 - 5.1 mmol/LCCFCCF CHLORIDE SERPL-SCNC97(L)98 - 107 mmol/LCCFCCF CO2 SERPL-SCNC 2322 - 30 mmol/LCCFCCF ANION GAP SERPL-SCNC98 - 15 mmol/LCCFEGFRCR SERPLBLD CKD- EPI 244898>=60 mL/min/1.73m???CCFComment:Estimated Glomerular Filtration Rate (eGFR) is calculated [...] EDT Specimen Type: BLOOD SPECIMEN Ordering Facility: [facility] ?Address: [address] [place] [address] Original Ordering Provider: DAVID BLACKBURN Authorizing ProviderResult TypeResult StatusGeneric External Data Provider CLINISYNCFinal ResultPerforming OrganizationAddressCity/State/ZIP CodePhone Number [facility] [facility] [address] [place] [address] * (ABNORMAL) [facility] BACTERIA UR CULT (01/08/2025 [...] TypeResult StatusGeneric External Data Provider CLINISYNCFinal ResultPerforming OrganizationAddressty/[facility]/ZIP CodePhone Number KALYNNE [facility] [address] [address] C[facility] * [facility] BACTERIA BLD CULT (01/06/2025 7:11 PM EDT) Only the most recent of2 resultswithin the time period is included. ComponentValueRef RangeTest MethodAnalysis TimePerformed AtPathologist Signature [facility] BACTERIA BLD CULT CULTURE, BLOOD: ?? No growth 5 days CCFSpecimen (Source)Anatomical Location / LateralityCollection Method / Volume Collection TimeReceived Time01/06/2025 7:11 PM EDT01/06/2025 9:50 PM EDT Narrative CLINYI - 01/11/2025 11:01 PM EDT Original Ordering Provider: FABY SANDOVAL Authorizing ProviderResult TypeResult StatusGeneric External Data Provider CLINISYNCFinal ResultPerforming OrganizationAddressCity/State/ZIP CodePhone Number MALLORY [facility] [address] [address] * POCT Glycated hemoglobin, total (11/15/2023 11:40 AM EDT)ComponentValueRef RangeTest MethodAnalysis TimePerformed AtPathologist SignatureHemoglobin A1C 5.3Specimen (Source)Anatomical Location / LateralityCollection Method / Volume Collection TimeReceived LaboBfsui12/31/2024 11:40 AM EDT Narrative Authorizing ProviderResult TypeResult StatusDaniar Delgado MDPOINT OF CARE TEST ENTER/EDIT ORDERABLESFinal Result * Microalbumin / creatinine, urine ratio (05/26/2023 8:31 AM EST)ComponentValue Ref RangeTest MethodAnalysis TimePerformed AtPathologist SignatureCREATININE, RANDOM XTQNM0209 - 320 mg/dLQUESTALBUMIN, URINE<0.2See Note: mg/dLQUEST Comment: [...] specimen obtained by clean catch procedure / Mgfvauh1705/26/2023 8:31 AM EST05/26/2023 3:59 PM EST Narrative [facility] - 05/29/2023 2:42 PM EST FASTING:YES FASTING: YES Resulting Agency Comment Performing Organization Information ?Site ID: [id number] ?Name: [facility] ?Address: [address] [place] [address], [address] [place] [address] ?Director: Roland Duggan MD Authorizing ProviderResult TypeResult Flakito Delgado MDLAB URINE ORDERABLESFinal ResultPerforming OrganizationAddressCity/State/ZIP CodePhone Number QUEST * Color Fundus Photography - OU - Both Eyes (05/24/2022 12:00 PM EST)Anatomical RegionLateralityModalityHeadFundus PhotographySpecimen (Source)Anatomical Location / LateralityCollection Method / VolumeCollection TimeReceived Time 05/24/2022 12:00 PM EST Narrative 05/24/2022 12:00 PM EST PERFORMED AT [facility] LOCATION:[id number] [facility] Procedure Note CONVERSION, GENERIC - 08/31/2022 PERFORMED AT [facility] LOCATION:[id number] [facility] Authorizing ProviderResult TypeResult Flakito Delgado MDOPHTH PHOTOGRAPHY Final Result * Colonoscopy (08/08/2019 12:00 PM EDT)Anatomical RegionLateralityModality EndoscopySpecimen (Source)Anatomical Location / LateralityCollection Method / VolumeCollection TimeReceived Time08/08/2019 12:00 PM EDT Narrative 08/08/2019 12:00 PM EDT PERFORMED AT [facility] LOCATION:[id number] polyp- repeat 5 years Procedure Note CONVERSION, GENERIC - 08/31/2022 PERFORMED AT [facility] LOCATION:[id number] polyp- repeat 5 years Authorizing ProviderResult TypeResult Flakito Delgado MDENDOSCOPY PROCEDURE ORDERABLESFinal Result from Last 3 Months or Most Recently Relevant to Health Maintenance Insurance Care Teams Team MemberRelationshipSpecialtyStart DateEnd Rusty Delgado MD [address] [place] [address] [place] [address] PCP - [employer]04/17/22 Rusty Delgado MD [address] [place], [place] [address] PCP - GeneralInternal Medicine11/23/22
--- OUTSIDE RECORDS SUMMARY | 2025-04-07 09:21 | XMS_ITS | Encounter Summary ---
Author Organization [facility] Address [address] [place] [address] Care Team Providers Care Featherer Name Role Phone Irena Johnson MD Unavailable Vanessa Arora MD Unavailable [phone] Danny WONG MD, Rusty Gomez Primary Care Provider [phone] Carina Ziegler RN Unavailable Unavailable Chelsea Trinidad MD Unavailable [phone] Source Comments In the event this information is protected by the Federal Confidentiality of Alcohol and Drug AbusePatient Records regulations: The Federal rules restrict any use of the information to criminally investigate or prosecute any alcohol or drug abuse patient.[facility] Reason for Visit * ReasonCommentsReferral - Liver Txp Encounter Details DateTypeDepartmentCare Team (Latest Contact Info)Jpqbqajvock31/09/2024Telephone Transplant Center [address] [phone] Sofya Hussein Referral - Liver Txp Social History Tobacco UseTypesPacks/DayYears UsedDateSmoking Tobacco: NxbuliVqnqpnhwpz886 02/18/1971 - 02/18/1991Alcohol UseStandard Drinks/EtvrLsbwqqzaPis67 (1 standard drink = 0.6 oz pure [...] homeless or living in a half-way (including now)?No11/25/2024HC UtilitiesAnswerDate RecordedIn the past 12 months has the [employer], gas, oil, or water [employer] threatened to shut off services in your home?No11/25/2024rea Deprivation IndexAnswerDate Recorded National Score (1-100), lower number is lower oabz114304/25/2024State Score (1- 10), lower number is lower wrry51804/25/2024Data from: https://www.neighborhoodatlas.medicine.[facility].edu/. Last address used for nzteuvpjohn[address]04/25/2024Sex and Gender InformationValueDate Recorded Sex Assigned at SydwaHojm06/07/2025 12:19 PM ESTLegal KvlBkcb52/02/2012 10:09 AM ESTGender StxoyeanJfbj17/07/2025 12:19 PM ESTSexual OrientationStraight 04/23/2024 12:19 PM ESTdocumented as of this encounter Functional Status * Are you deaf or do you have serious difficulty hearing?AnswerDate of WfpqdltzxqCnzzvyBg41/14/2015 2:34 PM Bebe Arellano MA * Are you blind or do you have serious difficulty seeing, even when wearing glasses?AnswerDate of LspexgqwemDdeiyfEj70/14/2015 2:34 PM Bebe Arellano MA * Do you have serious difficulty walking or climbing stairs?AnswerDate of TopabhdffcTobzypTc89/14/2015 2:34 PM Bebe Arellano MA * Do you have difficulty dressing or bathing?AnswerDate of AssessmentAuthorNo 08/28/2014 2:34 PM Bebe Arellano MA * Because of a physical, mental, or emotional condition, do you have difficulty doing errands alone such as visiting a doctor's office or shopping?AnswerDate of IzepyyrfykKkvgzhEv94/14/2015 2:34 PM Bebe Arellano MA documented as of this encounter Mental Status * Because of a physical, mental, or emotional condition, do you have serious difficulty concentrating, remembering, or making decisions?AnswerEntry Date ZobbptIw70/14/2015 2:34 PM Bebe Arellano MA documented in this encounter Miscellaneous Notes * Telephone Encounter - Sofya Husseni - 03/25/2024 1:27 PM EST Patients returning call to start liver transplant evaluation. documented in this encounter Plan of Treatment DateTypeDepartmentCare Team (Latest Contact Info)Bftkzzlicvo77/30/2025 11:15 AM ESTAppointment Radiology 2048 [place] [address] post liver tx follow up04/15/2025 12:30 PM ESTOffice Visit Transplant Center [address] [address] Kathy Ryan, TALA.BOAT DECKHAND [address] [address] post liver tx follow up04/16/2025 [facility] 9[address] [place] [address] Amanda Franz MD [address]27 [place] [address] CMV Virtual Appt06/11/2025 1:00 PM ESTAppointment Gastroenterology [address] [address] Jane Correia MD 0552 [place] [address] 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]documented as of this encounter Goals GoalPatient Goal TypeAssociated ProblemsRecent ProgressPatient-Stated?Author Blood Pressure < 130/80 Blood Blsrgbob156/71(02/10/2025 12:30 PM EDT)Vanessa Kulkarni, MDdocumented as of this encounter Visit Diagnoses Not on filedocumented in this encounter Additional Health Concerns InfectionOnset DateLast IndicatedResolved TimeCOVID-19 Rule-Out09/08/2024 6:09 PM EDTCOVID-19 Rule-Out 1:41 AM EDTRespiratory Rule-Out 1:41 AM EDT Parainfluenza Virus Comment:Asymptomatic per RN / 8:47 AM EDTCOVID-19 Rule-Out12/14/2024 7:58 PM EDTRespiratory Rule-Out/ 7:58 PM EDTdocumented as of this encounter Care Teams Team MemberRelationshipSpecialtyStart DateEnd Rusty Delgado II, MD [address] [facility] 110 [place] [address] PCP - GeneralInternal Medicine05/28/24 Irena Johnson MD 3000 [facility] 1620 [facility] [place] [place] [phone] VdsuhaaikXcikdluvygvkvirv14/26/24 Vanessa Arora MD [address]00 [place], [place] [phone] Primary Staff PhysicianCardiology05/02/24 Carina Ziegler, [facility] 9500 [place] [address] Registered NurseTransplant Center09/17/24 [place] [address] [facility] 206 [place], [place] [address] PhysicianNephrology11/19/24documented as of this encounter
--- OUTSIDE RECORDS SUMMARY | 2025-04-07 09:22 | XMS_ITS | Clinical Summary ---
Author Organization [facility] Address [address] [place] [address] Care Team Providers Care Button Sewer Hand Name Role Phone Rusty Delgado MD Primary Care Provider [phone] Allergies No known active allergies Medications MedicationSigDispense [...] DateDiagnosed DateHistory of tobacco abuse03/08/2024Nonalcoholic steatohepatitis (JARAMILLO)03/08/2024Hepatic cdxwycxhs69/22/2024leural effusion 02/19/2024ge-related nuclear cataract of both eyes01/18/2024ortic root bgdwyxvcwt47/05/2024 Overview (12/27/2023): Last Assessment & Plan: 3.8 cm ECHO 12/20/2023 Secondary esophageal varices without wllebhes01/28/2024Other asnooty8712/13/2023 QUESADA (dyspnea on exertion)12/13/2023lcoholic cirrhosis of liver with ascites 10/13/20239356Axeyvwigf06yspepsia and disorder of function of mnsgqam86Esophageal tmbyucpkhzn29Emesis bnormal weight lossEpisodic altered szhzrwqym68Grade II uhwjijepvkp25Fissure in anoHx of colonic tvhmfo41Myalgia03/16/2023 08/03/2023ontrolled type 2 diabetes mellitus without complication, without long-term current use of drqykht93rystalline deposits in lwxhvmcj97yslipidemiaEpiretinal membrane Fatty liverInsomnia Metabolic syndrome X9828Zxwjszaeyflsrupq38/03/202304/18/2024 Olecranon qgeazdkr67/23/7113Hbgczdy63/23/2019Hyperglycemia due to type 2 diabetes gqhnpmob40/24/2019Class 1 xhefmse5607/26/2018Primary gout07/26/2018 Ventricular premature beats06/28/2017Basal cell carcinoma of skin06/27/2017 Essential gnxqyhjwfnkr69/13/2018Gastroesophageal reflux daruglu6106/27/2017 Incisional giwczs03arrett's fjpplkddk57GERD (gastroesophageal reflux disease)HTN (hypertension) Osteoporosis Resolved Problems ProblemNoted DateDiagnosed DateResolved DateBenign essential hypertension /Nuclear senile llxgxuap0603/08/2024 Immunizations ImmunizationAdministration DatesNext DueInfluenza, High Dose Seasonal, Preservative Free02/01/2022,02/17/2021Influenza, Seasonal, Quadrivalent, Iojkfnuadh12/10/2023Influenza, Aupxmpgzcbo95/09/2013Influenza, injectable, nvxxcuhwxtjx24/30/2017,01/17/2017Influenza, injectable, quadrivalent, preservative free02/10/2019Influenza, seasonal, ajkutkyidd52/17/2016,02/10/2015, 01/14/2014Tdap12/09/2021Zoster, Vllfbjcqlxq18/14/2023Zoster, live03/24/2015 Social History Tobacco UseTypesPacks/DayYears UsedDateSmoking Tobacco: [...] heating?Not hard at all02/19/2024HQ-2AnswerDate RecordedPatient Health Questionnaire-2 Femti37405/08/2023UT Safety & Environment AnswerDate RecordedWithin the last [...] file02/19/2024Sex and Gender InformationValueDate RecordedSex Assigned at NjalxMchp39/22/2024 10:44 AM EDTLegal NqhCvvh6807/13/2023 8:09 AM EDTGender ExqdlkrlHpkp07/22/2024 10:44 AM EDTSexual Orientation Heterosexual or Byfiwzsg27/22/2024 10:44 AM EDT Last Filed Vital Signs Vital SignReadingTime TakenCommentsBlood Mkhjyyeu406/9103/08/2024 2:04 PM EST Ymttf929803/08/2024 2:04 PM VKNNaxzcpqwzcp39.6 ??C (97.9 ??F)02/20/2024 2:51 PM ESTRespiratory Lgwm530704/21/2023 2:51 PM ESTOxygen Zjytxodlgc34%02/20/2024 2:51 PM ESTInhaled Oxygen Concentration--Vynagy55.4 kg (186 lb)03/08/2024 2:04 PM EST Oflecm493.3 cm (5' 9 )03/08/2024 2:04 PM ESTBody Mass Index27.4703/08/2024 2:04 PM EST Plan of Treatment Health MaintenanceDue DateLast DoneCommentsCT Nddanmegminz23/18/1954FIT-DNA 1953FIT1953FOBT1953Medicare Annual Wellness (AWV)1955 Diabetes: Retinopathy Hpyzysyts79/18/1964Depression Ragoxqqzg95/18/1966Fall Risk Segyrbhpr12/18/2019COVID-19 Vaccine (3 - Moderna risk series)07/22/2020 06/24/2020, 05/27/2020Zoster Vaccines (2 of 2)/, 03/24/2015 Diabetes: Hemoglobin A1C/12/2023, 3Diabetes: Urine Protein Nhzbgiypp32/09/263990/12/2023Influenza Vaccine (#1)511/, 01/24/2023, 02/01/2022, Additional history qcmoakGadfwawtmactq08/19/2030 5Adult Mdbismr80/6041Xhvtaxgprzz07/17/203505/, 08/08/2019Colorectal Cancer Btlpteznf11/17/2035Pneumococcal Vaccine: 50+ Years Djdwlrtmd48/18/2024, 03/04/2024HIB VaccinesAged OutNo longer eligible based on patient's age to complete this topicHPV VaccinesAged OutNo longer eligible based on patient's age to complete this topicIPV VaccinesAged OutNo longer eligible based on patient's age to complete this topicMeningococcal B VaccineAged OutNo longer eligible based on patient's age to complete this topicMeningococcal VaccineAged OutNo longer eligible based on patient's age to complete this topic Rotavirus VaccinesAged OutNo longer eligible based on patient's age to complete this topic Insurance Advance Directives * Full Code (Latest Code Status on File) Date ActivatedDate RernqludcjwXdtnmksv39/4/2024 4:34 PM02/20/2024 6:27 PM Care Teams Team MemberRelationshipSpecialtyStart DateEnd Date Rusty Delgado MD [address] [facility] 110 [place] [address] PCP - GeneralInternal Medicine08/01/23
--- OUTSIDE RECORDS SUMMARY | 2025-04-07 09:22 | XMS_ITS | Encounter Summary ---
Author Organization [facility] Address [address] [id number] Care Team Providers Care Inside Account Executive Name Role Phone Irena Johnson MD Unavailable Vanessa Arora MD Unavailable [phone] Danny WONG MD, Daniel B Primary Care Provider [phone] Carina Ziegler RN Unavailable Unavailable Chelsea Trinidad MD Unavailable [phone] Source Comments In the event this information is protected by the Federal Confidentiality of Alcohol and Drug AbusePatient Records regulations: The Federal rules restrict any use of the information to criminally investigate or prosecute any alcohol or drug abuse patient.[facility] Encounter Details DateTypeDepartmentCare Team (Latest Contact Info)Tbzlerhojop98/22/2025Orders Only Transplant Center [address] [phone] Carina Ziegler, RN [address] [address] Disorder of liver; Liver replaced by transplant (HCC) Social History Tobacco UseTypesPacks/DayYears UsedDateSmoking Tobacco: OoecfgDksjloqode676 02/18/1971 - 02/18/1991Smokeless Tobacco: NeverAlcohol UseStandard Drinks/Week [...] in a [place] (including now)?No11/25/2024HC UtilitiesAnswerDate RecordedIn the past 12 months has the [employer], gas, oil, or water [employer] threatened to shut off services in your home?No11/25/2024rea Deprivation IndexAnswerDate RecordedNational Score (1-100), lower number is lower pntz724404/25/2024State Score (1-10), lower number is lower ikgj88004/25/2024 Data from: https://www.neighborhoodatlas.medicine.[facility].edu/. 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 on fileNot on fileNot on filedocumented as of this encounter Functional Status * Are you deaf or do you have serious difficulty hearing?AnswerDate of GfhyjtvwylPrudcyKr93/14/2025 4:27 PM Cecil Jaramillo RN * Are you blind or do you have serious difficulty seeing, even when wearing glasses?AnswerDate of KhscgitebpYbsvckWi82/14/2025 4:27 PM Cecil Jaramillo RN * Do you have serious difficulty walking or climbing stairs?AnswerDate of YhoxzeynfwJzihzhXk75/14/2025 4:27 PM Cecil Jaramillo RN * Do you have difficulty dressing or bathing?AnswerDate of AssessmentAuthorNo 05/31/2024 4:27 PM Cecil Jaramillo RN * Because of a physical, mental, or emotional condition, do you have difficulty doing errands alone such as visiting a doctor's office or shopping?AnswerDate of KihwkakkjnHsxzlyHy86/14/2025 4:27 PM Cecil Jaramillo RN documented as of this encounter Mental Status * Because of a physical, mental, or emotional condition, do you have serious difficulty concentrating, remembering, or making decisions?AnswerEntry Date MtscifKb69/14/2025 4:27 PM Cecil Jaramillo RN documented in this encounter Plan of Treatment DateTypeDepartmentCare Team (Latest Contact Info)Guakebfujmh03/30/2025 11:15 AM ESTAppointment Radiology [address] [address] post liver tx follow up04/15/2025 12:30 PM ESTOffice Visit Transplant Center [address] [address] Siudowski, Kathy A, SHIRT LINE OPERATOR.PSYCHIATRIC NP 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]documented as of this encounter Goals GoalPatient Goal TypeAssociated ProblemsRecent ProgressPatient-Stated?Author Blood Pressure < 130/80 Blood Rgmtltye453/71(02/10/2025 12:30 PM EDT)Vanessa Kulkarni, MDdocumented as of this encounter Visit Diagnoses Diagnosis Disorder of liver Unspecified disorder of liver Liver replaced by transplant (HCC) Liver replaced by transplant documented in this encounter Care Teams Team MemberRelationshipSpecialtyStart DateEnd Date Rusty Delgado II, MD 112 [facility] 110 [place] [address] PCP - GeneralInternal Medicine05/28/24 Irena Johnson MD 3000 [facility] 1620 [facility] [place] [address] JbntlffwyWixuyekqlqefxext58/26/24 Vanessa Arora MD 9500 [place] [address] Primary Staff PhysicianCardiology05/02/24 Carina Ziegler RN [facility] [address] [place] [address] Registered NurseTransplant Center09/17/24 [place] [address] [address] [place] [address] PhysicianNephrology11/19/24documented as of this encounter
--- OUTSIDE RECORDS SUMMARY | 2025-04-07 09:22 | XMS_ITS | Encounter Summary ---
Author Organization [facility] Address [address] [place] [address] Care Team Providers Care Air Twist Operator Name Role Phone Irena Johnson MD Unavailable Vanessa Arora MD Unavailable [phone] Danny WONG MD, Rusty Gomez Primary Care Provider [phone] Carina Ziegler RN Unavailable Unavailable Chelsea Trinidad MD Unavailable [phone] Source Comments In the event this information is protected by the Federal Confidentiality of Alcohol and Drug AbusePatient Records regulations: The Federal rules restrict any use of the information to criminally investigate or prosecute any alcohol or drug abuse patient.[facility] Encounter Details DateTypeDepartmentCare Team (Latest Contact Info)Keyaskzflcq45/11/2025Telephone [facility] [address] [place] [address] Amanda Franz MD [address] [place] [address] Social History Tobacco UseTypesPacks/DayYears UsedDateSmoking Tobacco: JsihttJagorebcsx609 02/18/1971 - 02/18/1991Smokeless Tobacco: NeverAlcohol UseStandard Drinks/Week [...] homeless or living in a longterm (including now)?No11/25/2024HC UtilitiesAnswerDate RecordedIn the past 12 months has the [employer] gas, oil, or water [employer] threatened to shut off services in your home?No11/25/2024rea Deprivation IndexAnswerDate RecordedNational Score (1-100), lower number is lower wlja990504/25/2024State Score (1-10), lower number is lower xfbv10904/25/2024 Data from: https://www.neighborhoodatlas.medicine.[facility].edu/. 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 on fileNot on fileNot on filedocumented as of this encounter Functional Status * Are you deaf or do you have serious difficulty hearing?AnswerDate of ValmtsdctbUmxnrpLv90/14/2025 4:27 PM Cecil Jaramillo RN * Are you blind or do you have serious difficulty seeing, even when wearing glasses?AnswerDate of NlwitzocwgSoqmctUx15/14/2025 4:27 PM Cecil Jaramillo RN * Do you have serious difficulty walking or climbing stairs?AnswerDate of ZzqjgcqxhbMsearpEf03/14/2025 4:27 PM Cecil Jaramillo RN * Do you have difficulty dressing or bathing?AnswerDate of AssessmentAuthorNo 05/31/2024 4:27 PM Cecil Jaramillo RN * Because of a physical, mental, or emotional condition, do you have difficulty doing errands alone such as visiting a doctor's office or shopping?AnswerDate of SzlkifqfzgQvbpddIb54/14/2025 4:27 PM Cecil Jaramillo RN documented as of this encounter Mental Status * Because of a physical, mental, or emotional condition, do you have serious difficulty concentrating, remembering, or making decisions?AnswerEntry Date DbrlcfDw24/14/2025 4:27 PM Cecil Jaramillo RN documented in this encounter Miscellaneous Notes * Telephone Encounter - Amanda Franz MD - 03/27/2025 1:25 PM EST Called patient and discussed starting valcyte. Send script to local pharmacy. Dose is 450 daily for now. Kidney function fluctuates and dose will need to be adjusted accordingly documented in this encounter Plan of Treatment DateTypeDepartmentCare Team (Latest Contact Info)Lnkalzbddjz78/30/2025 11:15 AM ESTAppointment Radiology [address] [address] post liver tx follow up04/15/2025 12:30 PM ESTOffice Visit Transplant Center [address] [address] Kathy Ryan, ART GLASS DESIGNER.SEO EXPERT [address] [address] post liver tx follow up04/16/2025 1: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]documented as of this encounter Goals GoalPatient Goal TypeAssociated ProblemsRecent ProgressPatient-Stated?Author Blood Pressure < 130/80 Blood Rbgzbvrv824/71(02/10/2025 12:30 PM EDT)Vanessa Kulkarni, MDdocumented as of this encounter Visit Diagnoses Not on filedocumented in this encounter Care Teams Team MemberRelationshipSpecialtyStart DateEnd Date Rusty Delgado II, MD 112 [facility] 110 [place] [address] PCP - GeneralInternal Medicine05/28/24 Irena Johnson MD 3000 [facility] 1620 [facility] [place] [address] OxjzskrhnNcycegfiqtkxftmu47/26/24 Vanessa Arora MD [address]00 [place], [place] [address] Primary Staff PhysicianCardiology05/02/24 Carina Ziegler RN [facility] [address]00 [place] [address] Registered NurseTransplant Center09/17/24 [place] [address] [address] [facility] 206 [place], [place] [address] PhysicianNephrology11/19/24documented as of this encounter
--- OUTSIDE RECORDS SUMMARY | 2025-04-07 09:22 | XMS_ITS | Encounter Summary ---
Author Organization [facility] Address [address] [id number] Care Team Providers Care Chairman Name Role Phone Irena Johnson MD Unavailable Vanessa Arora MD Unavailable [phone] Danny WONG MD, Daniel B Primary Care Provider [phone] Carina Ziegler RN Unavailable Unavailable Chelsea Trinidad MD Unavailable [phone] Source Comments In the event this information is protected by the Federal Confidentiality of Alcohol and Drug AbusePatient Records regulations: The Federal rules restrict any use of the information to criminally investigate or prosecute any alcohol or drug abuse patient.[facility] Encounter Details DateTypeDepartmentCare Team (Latest Contact Info)Ggsvlpdhfvg64/08/2025Orders Only Transplant Center [address] [id number] Carina Ziegler, RN [address] [address] Disorder of liver; Liver replaced by transplant (HCC) Social History Tobacco UseTypesPacks/DayYears UsedDateSmoking Tobacco: RhwofuIwpowdbqyb611 02/18/1971 - 02/18/1991Smokeless Tobacco: NeverAlcohol UseStandard Drinks/Week [...] RecordedIn the past 12 months has the [employer], gas, oil, or water [employer] threatened to shut off services in your home?No11/25/2024rea Deprivation IndexAnswerDate RecordedNational Score (1-100), lower number is lower thmn723704/25/2024State Score (1-10), lower number is lower yexj37904/25/2024 Data from: https://www.neighborhoodatlas.medicine.[facility].edu/. 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 on fileNot on filedocumented as of this encounter Functional Status * Are you deaf or do you have serious difficulty hearing?AnswerDate of MplevetakbYumdspEg71/14/2025 4:27 PM Cecil Jaramillo RN * Are you blind or do you have serious difficulty seeing, even when wearing glasses?AnswerDate of TfgusywqnpFbotpxHn39/14/2025 4:27 PM Cecil Jaramillo RN * Do you have serious difficulty walking or climbing stairs?AnswerDate of OzcmhujoxqNlknefJu30/14/2025 4:27 PM Cecil Jaramillo RN * Do you have difficulty dressing or bathing?AnswerDate of AssessmentAuthorNo 05/31/2024 4:27 PM Cecil Jaramillo RN * Because of a physical, mental, or emotional condition, do you have difficulty doing errands alone such as visiting a doctor's office or shopping?AnswerDate of PwixgukkruAbpdlfDz13/14/2025 4:27 PM Cecil Jaramillo RN documented as of this encounter Mental Status * Because of a physical, mental, or emotional condition, do you have serious difficulty concentrating, remembering, or making decisions?AnswerEntry Date MvmrvpPm14/14/2025 4:27 PM Cecil Jaramillo RN documented in this encounter Plan of Treatment DateTypeDepartmentCare Team (Latest Contact Info)Jrpoanezjwm49/30/2025 11:15 AM ESTAppointment Radiology [address] [address] post liver tx follow up04/15/2025 12:30 PM ESTOffice Visit Transplant Center [address] [address] Siudowski, Kathy A, SENIOR EXECUTIVE COMPENSATION ANALYST.AGRICULTURAL SERVICE WORKER [address] [place] [address] post liver tx follow up04/16/2025 1:30 PM EST[facility] Disease [address] [place] [address] Amanda Franz MD [address] [place] [address] CMV Virtual Appt06/11/2025 1:00 PM ESTAppointment Gastroenterology [address] [address] Jane Correia MD 9500 [place] [address] 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]documented as of this encounter Goals GoalPatient Goal TypeAssociated ProblemsRecent ProgressPatient-Stated?Author Blood Pressure < 130/80 Blood Hkhifwrw172/71(02/10/2025 12:30 PM EDT)Vanessa Kulkarni, MDdocumented as of this encounter Procedures Procedure NamePriorityDate/TimeAssociated DiagnosisCommentsMAGNESIUM BLDRoutine 03/24/2025 8:45 AM EST Disorder of liver Liver replaced by transplant (HCC) CYTOMEGALOVIRUS (CMV) DNA, QUANTITATIVE PCR, OMPMCWElisgll33/08/2025 8:45 AM EST Liver replaced by transplant (HCC) TACROLIMUS/FK-506 XROzmnksy67/08/2025 8:45 AM EST Disorder of liver Liver replaced by transplant (HCC) PHOSPHORUS KFJHWKNZJJuynntt51/08/2025 8:45 AM EST Disorder of liver Liver replaced by transplant (HCC) GGT CEIRwteiee60/08/2025 8:45 AM EST Disorder of liver Liver replaced by transplant (HCC) COMPREHENSIVE METABOLIC CEREKXfmjoqq73/08/2025 8:45 AM EST Disorder of liver Liver replaced by transplant (HCC) CBC + JNQKMkfimzc40/08/2025 8:45 AM EST Disorder of liver Liver replaced by transplant (HCC) documented in this encounter Results * (ABNORMAL) CYTOMEGALOVIRUS (CMV) DNA, QUANTITATIVE PCR, PLASMA (03/24/2025 8:45 AM EST)ComponentValueRef RangeTest MethodAnalysis TimePerformed At Pathologist SignatureCMV DNA, Qn, PCR1,010(H)IU/mLH[facility]/Sarasota Medical ProductsYCMV DNA, QN PCR3.00(H)log IU/mLHivext Technologies/[employer] Comment: ? REFERENCE RANGE: NOT DETECTED ? For additional information, please refer to http://education.Egenera/faq/CMVandEBVPCR (This link is being provided for informational/ educational purposes only.) ? Test Performed at: [employer] [address] [place] [address] ?? JIM COLBERT MD,PHD Specimen (Source)Anatomical Location / LateralityCollection Method / Volume Collection TimeReceived TimeBloodBLOOD SPECIMEN / Axmjcwm0003/24/2025 8:45 AM EST 03/24/2025 8:46 AM EST Narrative Authorizing ProviderResult TypeResult StatusShelli Boo APRN.CNPLABORATORY Final ResultPerforming OrganizationAddressCity/State/ZIP CodePhone Number [facility] [address] [place] [address] [employer] [address] [place] [address] * TACROLIMUS/FK-506 BL (03/24/2025 8:45 AM EST)ComponentValueRef RangeTest MethodAnalysis TimePerformed AtPathologist SignatureTacrolimus, Highly Sensitive, LC/MS/MS10.6mcg/LQUEST DIAGNOSTICSJELLICO MEDICAL CENTERComment: No definitive therapeutic or toxic ranges have been established. Optimal blood drug levels are influenced by type of transplant, patient response, time post- transplant, co-administration of other drugs, and drug formulation. The following trough range is a suggested guideline: 5.0-20.0 mcg/L. This test was developed and its analytical performance characteristics have been determined by [employer]. It has not been cleared or approved by the FDA. This assay has been validated pursuant to the CLIA regulations and is used for clinical purposes. Test Performed at: [facility] [address] ??[phone] VIVIEN SALAS MD Specimen (Source)Anatomical Location / LateralityCollection Method / Volume Collection TimeReceived TimeBloodBLOOD SPECIMEN / Pokzafw2103/24/2025 8:45 AM EST 03/24/2025 8:46 AM EST Narrative Authorizing ProviderResult TypeResult Opal Boo APRN.CNPLABORATORY Final ResultPerforming OrganizationAddressCity/State/ZIP CodePhone Number [facility] [phone] [place] [address] [facility] [address] [address] * (ABNORMAL) PHOSPHORUS INORGANIC (03/24/2025 8:45 AM EST)ComponentValueRef RangeTest MethodAnalysis TimePerformed AtPathologist SignaturePhosphorus5.5(H) 2.1 - 4.3 mg/dLADVANCED CARE [facility] PerfectHitchJELLICO MEDICAL CENTERComment: Test Performed at: [facility] [facility] ??[phone] VIVIEN SALAS MD Specimen (Source)Anatomical Location / LateralityCollection Method / Volume Collection TimeReceived TimeBloodBLOOD SPECIMEN / Httprto6903/24/2025 8:45 AM EST 03/24/2025 8:46 AM EST Narrative Authorizing ProviderResult TypeResult StatusShelli Boo APRN.CNPLABORATORY Final ResultPerforming OrganizationAddressty/State/ZIP CodePhone Number [facility] [address] [place] [address] [employer] [employer] [address] * MAGNESIUM (03/24/2025 8:45 AM EST)ComponentValueRef RangeTest MethodAnalysis TimePerformed AtPathologist SignatureMagnesium1.91.5 - 2.5 mg/dLClementia Pharmaceuticals DIAGNOSTICSJELLICO MEDICAL CENTERComment: Test Performed at: [employer] ??[phone] VIVIEN SALAS MD Specimen (Source)Anatomical Location / LateralityCollection Method / Volume Collection TimeReceived TimeBloodBLOOD SPECIMEN / Rwqqjqc1003/24/2025 8:45 AM EST 03/24/2025 8:46 AM EST Narrative Authorizing ProviderResult TypeResult StatusShelli Boo APRN.CNPLABORATORY Final ResultPerforming OrganizationAddressCity/State/ZIP CodePhone Number [facility] [address] [place] [address] [employer] [address] * GGT (03/24/2025 8:45 AM EST)ComponentValueRef RangeTest MethodAnalysis Time Performed AtPathologist QrxgddhbiVRN239 - 70 U/LQUEST PerfectHitchJELLICO MEDICAL CENTER Comment: Test Performed at: [facility] [address] ??[phone] VIVIEN SALAS MD Specimen (Source)Anatomical Location / LateralityCollection Method / Volume Collection TimeReceived TimeBloodBLOOD SPECIMEN / Jewpnwx8803/24/2025 8:45 AM EST 03/24/2025 8:46 AM EST Narrative Authorizing ProviderResult TypeResult Opal Boo APRN.CNPLABORATORY Final ResultPerforming OrganizationAddressCity/State/ZIP CodePhone Number [facility] [address] [place] [address] [employer] [employer] [address] * (ABNORMAL) COMPREHENSIVE METABOLIC PANEL (03/24/2025 8:45 AM EST)Component ValueRef RangeTest MethodAnalysis TimePerformed AtPathologist SignatureGlucose 104(H)65 - 99 mg/dLHivext TechnologiesJELLICO MEDICAL CENTERComment: ? Fasting reference interval For someone without known diabetes, a glucose value between 100 and 125 mg/dL is consistent with prediabetes and should be confirmed with a follow-up test. BUN41(H)7 - 25 mg/dLQUEST PerfectHitchJELLICO MEDICAL CENTERCreatinine1.78(H)0.70 - 1.28 mg/dLQUEST PerfectHitchJELLICO MEDICAL CENTEREONOFFGCVCJOLI31(L)> OR = 60 mL/min/1.67w1QKVCG DIAGNOSTICS-FERRISBUN/Creat Ratio23(H)6 - 22 (calc)QUEST DIAG[facility]STICS-SROQUARKVARljvfk384708 - 146 mmol/LQUEST DIAGNOSTICS-FERRIS Potassium5.5(H)3.5 - 5.3 mmol/LQUEST DIAGNOSTICS-RKSBMDBCSRSiresmsp82332 - 110 mmol/LQUEST DIAGNOSTICS-SWUMUEYONXNF69526 - 32 mmol/LQUEST DIAGNOSTICS-FERRISCalcium8.98.6 - 10.3 mg/dLQUEST DIAGNOSTICS-FERRIS Protein, Total6.56.1 - 8.1 g/dLQUEST DIAGNOSTICS-FERRISAlbumin3.2(L)3.6 - 5.1 g/dLQUEST DIAGNOSTICS-FERRISGlobulin3.31.9 - 3.7 g/dL (calc)QUEST DIAGNOSTICS-FERRISAlb/Glob Ratio1.01.0 - 2.5 (calc)QUEST DIAGNOSTICS-FERRISBilirubin, Total0.30.2 - 1.2 mg/dLQUEST DIAGNOSTICS-FERRISAlkaline Uxoygzbmads038(H)35 - 144 U/LQUEST DIAGNOSTICS-TDYCXQMPUTBCK5659 - 35 U/LQUEST DIAGNOSTICS-LACJTZZZUKFLE971 - 46 U/LQUEST DIAGNOSTICS-FERRISComment: Test Performed at: [facility] ??[phone] VIVEIN SALAS MD Specimen (Source)Anatomical Location / LateralityCollection Method / Volume Collection TimeReceived TimeBloodBLOOD SPECIMEN / Krygrwu0203/24/2025 8:45 AM EST 03/24/2025 8:46 AM EST Narrative Authorizing ProviderResult TypeResult StatusShelli Boo APRN.CNPLABORATORY Final ResultPerforming OrganizationAddressCity/State/ZIP CodePhone Number [facility] [address] [place] [address] [employer] [address] * (ABNORMAL) COMPLETE BLOOD COUNT AND DIFFERENTIAL (03/24/2025 8:45 AM EST) ComponentValueRef RangeTest MethodAnalysis TimePerformed AtPathologist SignatureWBC9.73.8 - 10.8 Thousand/uLQUEST DIAGNOSTICS-FERRISRBC3.05(L) 4.20 - 5.80 Million/uLQUEST DIAGNOSTICS-NYPDDRMJPMEhrcewrnwo80.2(L)13.2 - 17.1 g/dLADVANCED CARE [facility] PerfectHitchJELLICO MEDICAL CENTERLMGDAEMTYRMzhshvaren59.5(L)39.4 - 51.1 %[facility] TechnologiesJELLICO MEDICAL CENTERSFZOZXWVZAVAK614.3(H)81.4 - [address] [facility] PerfectHitchJELLICO MEDICAL CENTER MCH33.4(H)27.0 - 33.0 pgQUEST DIAGNOSTICSJELLICO MEDICAL CENTERNFGBFDPCIRMWFG83.431.6 - 35.4 g/dL [facility] SHVNQXFFZRQ-IQMSGYUAWPLXB-BF51.011.0 - 15.0 %[facility] PerfectHitchJELLICO MEDICAL CENTERPlatelet Xlsit400057 - 400 Thousand/uLQUEST DIAGNOSTICS-NXFOQSBRTKQGH22.07.5 - 12.[address] [facility] PerfectHitchJELLICO MEDICAL CENTERAbs Neut (ANC)4,4041,500 - 7,800 cells/uLQUEST DIAGNOSTICS-FERRISAbs Lymph4,501(H) 850 - 3,900 cells/[facility] DIAGNOSTICSJELLICO MEDICAL CENTERAbs Pwex322509 - 950 cells/uL [facility] PerfectHitchJELLICO MEDICAL CENTERAbs Cjbya94730 - 500 cells/Jefferson HospitalAbs Vxgq269 - 200 cells/uLADVANCED CARE [facility] DIAGNOSTICS-FERRIS Neut%45.4%[employer]-FERRISLymph%46.4%H[facility] TechnologiesJELLICO MEDICAL CENTER Hanson%6.6%[employer] DIAGNOSTICS-FERRISEosin%1.2%[facility] TechnologiesJELLICO MEDICAL CENTER Baso%0.4%[employer]-FERRISComment: Test Performed at: [address] ??[phone] VIVIEN SALAS MD Specimen (Source)Anatomical Location / LateralityCollection Method / Volume Collection TimeReceived TimeBloodBLOOD SPECIMEN / Iyghlsl2003/24/2025 8:45 AM EST 03/24/2025 8:46 AM EST Narrative Authorizing ProviderResult TypeResult StatusShelli Boo APRN.CNPLABORATORY Final ResultPerforming OrganizationAddressCity/State/ZIP CodePhone Number [facility] [address] [place] [address] [phone] documented in this encounter Visit Diagnoses Diagnosis Disorder of liver Unspecified disorder of liver Liver replaced by transplant (HCC) Liver replaced by transplant documented in this encounter Care Teams Team MemberRelationshipSpecialtyStart DateEnd Date Rusty Delgado II, MD [address] [place] [address] PCP - GeneralInternal Medicine05/28/24 Irena Johnson MD [address] [facility] 16[address] [facility] [place] [address] RobzyjgmiEkkncvmciginexsb69/26/24 Vanessa Arora MD [address] [place], [place] [address] Primary Staff PhysicianCardiology05/02/24 Carina Ziegler, RN [facility] [address] [place] [address] Registered NurseTransplant Center09/17/24 [place] [address] [facility] [address] [place], [place] [address] PhysicianNephrology11/19/24documented as of this encounter
--- OUTSIDE RECORDS SUMMARY | 2025-04-07 09:22 | XMS_ITS | Patient Health Record ---
Author Organization [facility] [place] Address [address] [place] [address] Care Team Providers Care Psychologist Personnel Name Role Phone Rusty Delgado MD Primary Care Provider Unavail Devyn Ramsey Unavailable [phone] Allergies No Known Allergies Reason For Referral No Information Medications Medication SIG (Take, Route, Frequency, Duration) Notes Start Date End Date Status Furosemide 20 MG TAKE [address] [facility] TWO TIMES DAILY. Oral; Duration: 5 [...] Administration Date Status Comme nts Flu, Fluad (84875) 65 yrs+, single-dose syringe (1557-8739) Unknown 01/24/2023 Administered Tdap (Boostrix)Rmuhgfg65/06/2022AdministeredZOSTER (SHINGLES) VACCINE (HZV) Euskddw70/14/2023Administered Social History Tobacco Use: Social History Observation Description Date Details (start date - stop date) Former Smoker NA - NA Tobacco Control (Standard) Question Answer Notes Tobacco use: Former smoker How long has it been since you last smoked?Greater than 10 yearsAdditional Findings: Tobacco uaw-jekxTb-iclgk cigarette smoker (20-30/day) Problems Problem Type SNOMED Code ICD Code Onset Dates Problem Status W/U Status Risk Notes Problem Pleural effusion (32070825) Pleu ral effusion in other conditions classified elsewhere (J91.8) ActiveconfirmedProblemNASH - Nonalcoholic steatohepatitis (678465047)JARAMILLO (nonalcoholic steatohepatitis) (K75.81)ActiveconfirmedProblemEx-tobacco user (finding) (629917989)History of tobacco abuse (Z87.891)ActiveconfirmedProblem Hepatic cirrhosis (76935144)Hepatic cirrhosis (K74.60)Activeconfirmed Encounters Encounter Location Date Provider Diagnosis Pulmonary Medicine [place] [address] [place] [address] 04/22/2024 Devyn [facility] Pulmonary Medicine [address] [place] [address]/24/2025 Devyn [facility] Plan Of Treatment No Information Insurance Providers Payer Name Payer Address Payer Phone Subscriber Number Group Number Insured Name Patient Relationship to Insured Coverage Start Date Coverage End Date [employer] [address] [place], [place] [id number] [phone] [id number] Marlee Stewartelf - patient is the insured [...]
--- OUTSIDE RECORDS SUMMARY | 2025-04-07 09:22 | XMS_ITS | Encounter Summary ---
Author Organization [facility] Address [address] [place] [address] Care Team Providers Care Rooter Operator Name Role Phone Irena Johnson MD Unavailable Vanessa Arora MD Unavailable [phone] Danny WONG MD, Daniel B Primary Care Provider [phone] Carina Ziegler RN Unavailable Unavailable Chelsea Trinidad MD Unavailable [phone] Source Comments In the event this information is protected by the Federal Confidentiality of Alcohol and Drug AbusePatient Records regulations: The Federal rules restrict any use of the information to criminally investigate or prosecute any alcohol or drug abuse patient.[facility] Encounter Details DateTypeDepartmentCare Team (Latest Contact Info)Zjgcwrtixbp75/16/2025Results Follow-Up Transplant Center [address] [phone] Carina Ziegler, RN [facility] [address] [place] [address] Social History Tobacco UseTypesPacks/DayYears UsedDateSmoking Tobacco: KeftddKqkakhxwff238 02/18/1971 - 02/18/1991Smokeless Tobacco: NeverAlcohol UseStandard Drinks/Week [...] RecordedIn the past 12 months has the [employer], gas, oil, or water [employer] threatened to shut off services in your home?No11/25/2024rea Deprivation IndexAnswerDate RecordedNational Score (1-100), lower number is lower ckkg584004/25/2024State Score (1-10), lower number is lower eymb96504/25/2024 Data from: https://www.neighborhoodatlas.medicine.[facility].edu/. 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 on fileNot on filedocumented as of this encounter Functional Status * Are you deaf or do you have serious difficulty hearing?AnswerDate of RdvrdrwnhmXntjhnVe28/14/2025 4:27 PM Cecil Jaramillo RN * Are you blind or do you have serious difficulty seeing, even when wearing glasses?AnswerDate of OxqgrfiqxvYqxwexVz00/14/2025 4:27 PM Cecil Jaramillo RN * Do you have serious difficulty walking or climbing stairs?AnswerDate of XflpfznrjuNxscibRy68/14/2025 4:27 PM Cecil Jaramillo RN * Do you have difficulty dressing or bathing?AnswerDate of AssessmentAuthorNo 05/31/2024 4:27 PM Cecil Jaramillo RN * Because of a physical, mental, or emotional condition, do you have difficulty doing errands alone such as visiting a doctor's office or shopping?AnswerDate of AbfkmlclreFvkiatId25/14/2025 4:27 PM Cecil Jaramillo RN documented as of this encounter Mental Status * Because of a physical, mental, or emotional condition, do you have serious difficulty concentrating, remembering, or making decisions?AnswerEntry Date VjaxjmIe46/14/2025 4:27 PM Cecil Jaramillo RN documented in this encounter Miscellaneous Notes * Result Encounter Note - Carina Ziegler RN - 04/03/2025 7:08 AM EST Reviewed liver transplant results and stable-no changes at this time. Improving on Valcyte. Will let Dr Franz know and also that [employer] approved the letermovir. Carina Ziegler RN (Molly), BSN, [facility] Liver Residential Property Tax Appraiser * Result Encounter Note - Carina Ziegler RN - 04/02/2025 4:42 PM EST Reviewed liver transplant results and stable-no changes at this time. Carina Ziegler (Molly) RN, BSN, [facility] Liver Residential Property Tax Appraiser * Result Encounter Note - Carina Ziegler RN - 04/01/2025 5:58 PM EST Liver transplant labs reviewed and some abnormalities noted with potassium of 5.9, please make surehe takes his kayexalate today and I will call/or send message once they are reviewed with staff. Carina Ziegler RN (Molly), BSN, [facility] Liver Residential Property Tax Appraiser documented in this encounter Plan of Treatment DateTypeDepartmentCare Team (Latest Contact Info)Cpwmunnfxhf62/30/2025 11:15 AM ESTAppointment Radiology [address] [address] post liver tx follow up04/15/2025 12:30 PM ESTOffice Visit Transplant Center [address] [address] Kathy Ryan, IMM[employer]RATION [employer].HORSE RACER [address] [address] post liver tx follow up04/16/2025 1:30 PM ESTDisflagstaff medical center Health Infectious Disease [address] [place] [address] Amanda Franz MD [address] [place] [address] CMV Virtual Appt06/11/2025 1:00 PM ESTAppointment Gastroenterology [address] [address] Jane Correia MD [address] [place] [address] 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]documented as of this encounter Goals GoalPatient Goal TypeAssociated ProblemsRecent ProgressPatient-Stated?Author Blood Pressure < 130/80 Blood Hwynhvax189/71(02/10/2025 12:30 PM EDT)Vanessa Kulkarni MDdocumented as of this encounter Visit Diagnoses Not on filedocumented in this encounter Care Teams Team MemberRelationshipSpecialtyStart DateEnd Date Rusty Delgado II, MD [address] [facility] [address] [place] [address] PCP - GeneralInternal Medicine05/28/24 Irena Johnson MD 3000 [facility] 1620 [facility] [place] [address] TccnesbrhKclkryybwmisxiat70/26/24 Vanessa Arora MD [address]00 [place] [address] Primary Staff PhysicianCardiology05/02/24 Carina Ziegler RN [facility] [address] [place] [address] Registered NurseTransplant Center09/17/24 [place] [address] [facility] [address] [place], [place] [phone] PhysicianNephrology11/19/24documented as of this encounter
--- OUTSIDE RECORDS SUMMARY | 2025-04-07 09:22 | XMS_ITS | Encounter Summary ---
Author Organization [facility] Address [address] [phone] Care Team Providers Care Tank Furnace Operator Name Role Phone Irena Johnson MD Unavailable Vanessa Arora MD Unavailable [phone] Danny WONG MD, Daniel B Primary Care Provider [phone] Carina Ziegler RN Unavailable Unavailable Chelsea Trinidad MD Unavailable [phone] Source Comments In the event this information is protected by the Federal Confidentiality of Alcohol and Drug AbusePatient Records regulations: The Federal rules restrict any use of the information to criminally investigate or prosecute any alcohol or drug abuse patient.[facility] Encounter Details DateTypeDepartmentCare Team (Latest Contact Info)Vfwzdxtsxdh19/10/2025 Get Medical Advice Transplant Center [address] [phone] Carina Ziegler, RN [facility] [address] [place] [address] Distended abdomen Social History Tobacco UseTypesPacks/DayYears UsedDateSmoking Tobacco: ExmyjuTbbyvcjhku984 02/18/1971 - 02/18/1991Smokeless Tobacco: NeverAlcohol UseStandard Drinks/Week [...] RecordedIn the past 12 months has the [employer], gas, oil, or water [employer] threatened to shut off services in your home?No11/25/2024rea Deprivation IndexAnswerDate RecordedNational Score (1-100), lower number is lower hfrb923604/25/2024State Score (1-10), lower number is lower umly77004/25/2024 Data from: https://www.neighborhoodatlas.medicine.[facility].edu/. 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 on fileNot on filedocumented as of this encounter Functional Status * Are you deaf or do you have serious difficulty hearing?AnswerDate of KhviwbygzmDcdankZl31/14/2025 4:27 PM Cecil Jaramillo RN * Are you blind or do you have serious difficulty seeing, even when wearing glasses?AnswerDate of AcysaosjknIwutsjUj39/14/2025 4:27 PM Cecil Jaramillo RN * Do you have serious difficulty walking or climbing stairs?AnswerDate of VgnthowwuxHmpzgbNc68/14/2025 4:27 PM Cecil Jaramillo RN * Do you have difficulty dressing or bathing?AnswerDate of AssessmentAuthorNo 05/31/2024 4:27 PM Cecil Jaramillo RN * Because of a physical, mental, or emotional condition, do you have difficulty doing errands alone such as visiting a doctor's office or shopping?AnswerDate of NvdinnvmqtUxgwrkId50/14/2025 4:27 PM Cecil Jaramillo RN documented as of this encounter Mental Status * Because of a physical, mental, or emotional condition, do you have serious difficulty concentrating, remembering, or making decisions?AnswerEntry Date OhptavSn95/14/2025 4:27 PM Cecil Jaramillo RN documented in this encounter Plan of Treatment DateTypeDepartmentCare Team (Latest Contact Info)Mvcvihlvean69/30/2025 11:15 AM ESTAppointment Radiology [address] [address] post liver tx follow up04/15/2025 12:30 PM ESTOffice Visit Transplant Center [address] [address] Kathy Ryan, PLYWOOD SCARFER TENDER.WARP SPLITTER [address] [place] [address], [place] [phone] post liver tx follow up04/16/2025 1:30 PM 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]documented as of this encounter Goals GoalPatient Goal TypeAssociated ProblemsRecent ProgressPatient-Stated?Author Blood Pressure < 130/80 Blood Wurncjxj665/71(02/10/2025 12:30 PM EDT)Vanessa Kulkarni, MDdocumented as of this encounter Visit Diagnoses Not on filedocumented in this encounter Care Teams Team MemberRelationshipSpecialtyStart DateEnd Date Rusty Delgado II, MD 112 [facility] 110 [place] [address] PCP - GeneralInternal Medicine05/28/24 Irena Johnson MD 3000 [facility] 1620 [facility] [place] [phone] DwbryrczkXrchgypawlqneqsc27/26/24 Vanessa Arora MD 9500 [place], [place] [phone] Primary Staff PhysicianCardiology05/02/24 Carina Ziegler RN [facility] [address] [place] [address] Registered NurseTransplant Center09/17/24 [place] [address] [address] [facility] 206 [place] [address] PhysicianNephrology11/19/24documented as of this encounter
--- OUTSIDE RECORDS SUMMARY | 2025-04-07 09:22 | XMS_ITS | Encounter Summary ---
Author Organization [facility] Address [address] [phone] Care Team Providers Care Superintendent Drilling And Production Name Role Phone Irena Johnson MD Unavailable Vanessa Arora MD Unavailable [phone] Danny WONG MD, Daniel B Primary Care Provider [phone] Carina Ziegler RN Unavailable Unavailable Chelsea Trinidad MD Unavailable [phone] Source Comments In the event this information is protected by the Federal Confidentiality of Alcohol and Drug AbusePatient Records regulations: The Federal rules restrict any use of the information to criminally investigate or prosecute any alcohol or drug abuse patient.[facility] Encounter Details DateTypeDepartmentCare Team (Latest Contact Info)Unkhtyutsin36/11/2025Results Follow-Up Transplant Center [address] [phone] Carina Ziegler, RN [place] [address] [place] [address] Social History Tobacco UseTypesPacks/DayYears UsedDateSmoking Tobacco: FsxrtcUqwipcvtqh969 02/18/1971 - 02/18/1991Smokeless Tobacco: NeverAlcohol UseStandard Drinks/Week [...] or living in a group home (including now)?No11/25/2024HC UtilitiesAnswerDate RecordedIn the past 12 months has the [employer], gas, oil, or water [employer] threatened to shut off services in your home?No11/25/2024rea Deprivation IndexAnswerDate RecordedNational Score (1-100), lower number is lower crgb656304/25/2024State Score (1-10), lower number is lower aquc74804/25/2024 Data from: https://www.neighborhoodatlas.medicine.[facility].edu/. 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 on fileNot on fileNot on filedocumented as of this encounter Functional Status * Are you deaf or do you have serious difficulty hearing?AnswerDate of TbutxpawcoWlbhkcJr61/14/2025 4:27 PM Cecil Jaramillo RN * Are you blind or do you have serious difficulty seeing, even when wearing glasses?AnswerDate of UdjbrerhtzDtzjcuKc15/14/2025 4:27 PM Cecil Jaramillo RN * Do you have serious difficulty walking or climbing stairs?AnswerDate of GbkuztlwikCojsspBk98/14/2025 4:27 PM Cecil Jaramillo RN * Do you have difficulty dressing or bathing?AnswerDate of AssessmentAuthorNo 05/31/2024 4:27 PM Cecil Jaramillo RN * Because of a physical, mental, or emotional condition, do you have difficulty doing errands alone such as visiting a doctor's office or shopping?AnswerDate of JaxtghmdyzKelkphDy72/14/2025 4:27 PM Cecil Jaramillo RN documented as of this encounter Mental Status * Because of a physical, mental, or emotional condition, do you have serious difficulty concentrating, remembering, or making decisions?AnswerEntry Date KesqbjBa22/14/2025 4:27 PM Cecil Jaramillo RN documented in this encounter Miscellaneous Notes * Result Encounter Note - Carina Ziegler RN - 03/27/2025 3:45 PM EST Reviewed liver transplant results and creatinine up a bit, try to increase water intake -tacro level better(will d/w staff about dose after next week results) also CMV 1000 now and will start valcyteper our discussion Carina Ziegler RN (Molly), BSN, [facility] Liver Die Engraver documented in this encounter Plan of Treatment DateTypeDepartmentCare Team (Latest Contact Info)Drxlkcpdbla47/30/2025 11:15 AM ESTAppointment Radiology [address] [address] post liver tx follow up04/15/2025 12:30 PM ESTOffice Visit Transplant Center [address] [address] Kathy Ryan, FARM PRODUCTS SHIPPER.COAL DIGGER [address] [phone] post liver tx follow up04/16/2025 1:30 PM [facility]DisH[facility] Infectious Disease 9300 [place] [address] Amanda Franz MD 9500 [place] [address] CMV Virtual Appt06/11/2025 1:00 PM ESTAppointment Gastroenterology [address] [address] Jane Correia MD 9500 [place] [address] 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]documented as of this encounter Goals GoalPatient Goal TypeAssociated ProblemsRecent ProgressPatient-Stated?Author Blood Pressure < 130/80 Blood Kjionban662/71(02/10/2025 12:30 PM EDT)Vanessa Kulkarni, MDdocumented as of this encounter Visit Diagnoses Not on filedocumented in this encounter Care Teams Team MemberRelationshipSpecialtyStart DateEnd Date Rusty Delgado II, MD [address] [facility] 110 [place] [address] PCP - GeneralInternal Medicine05/28/24 Irena Johnson MD 3000 [facility] 1620 [facility] [place] [phone] EblteggfaGvejnhjywvzkwzyl79/26/24 Vanessa Arora MD 9500 [place], [place] [phone] Primary Staff PhysicianCardiology05/02/24 Carina Ziegler, RN [place] 9500 [place] [address] Registered NurseTransplant Center09/17/24 [place] [address] [address] [facility] 206 [place], [place] [address] PhysicianNephrology11/19/24documented as of this encounter
--- OUTSIDE RECORDS SUMMARY | 2025-04-07 09:22 | XMS_ITS | Encounter Summary ---
Author Organization [facility] Address [address]00 [place] [address] Care Team Providers Care Night Patrol Inspector Name Role Phone Irena Johnson MD Unavailable Vanessa Arora MD Unavailable [phone] Danny WONG MD, Rusty Gomez Primary Care Provider [phone] Carina Ziegler RN Unavailable Unavailable Chelsea Trinidad MD Unavailable [phone] Source Comments In the event this information is protected by the Federal Confidentiality of Alcohol and Drug AbusePatient Records regulations: The Federal rules restrict any use of the information to criminally investigate or prosecute any alcohol or drug abuse patient.[facility] Encounter Details DateTypeDepartmentCare Team (Latest Contact Info)Stpffohfife00/17/2025 Get Medical Advice Infectious Disease [address] [phone] Amanda Franz MD 8466 [place] [address] Prevymis Social History Tobacco UseTypesPacks/DayYears UsedDateSmoking Tobacco: FxazgxZtbrjubazt710 02/18/1971 - 02/18/1991Smokeless Tobacco: NeverAlcohol UseStandard Drinks/Week [...] homeless or living in a prison (including now)?No11/25/2024HC UtilitiesAnswerDate RecordedIn the past 12 months has the electric, gas, oil, or water company threatened to shut off services in your home?No11/25/2024rea Deprivation IndexAnswerDate RecordedNational Score (1-100), lower number is lower bqje725704/25/2024State Score (1-10), lower number is lower agsf35304/25/2024 Data from: https://www.neighborhoodatlas.medicine.[facility].edu/. 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 on fileNot on fileNot on filedocumented as of this encounter Functional Status * Are you deaf or do you have serious difficulty hearing?AnswerDate of OiqflhgexyFhvguqOd06/14/2025 4:27 PM Cecil Jaramillo RN * Are you blind or do you have serious difficulty seeing, even when wearing glasses?AnswerDate of QceomlxprlCwizudIm04/14/2025 4:27 PM Cecil Jaramillo RN * Do you have serious difficulty walking or climbing stairs?AnswerDate of GdrboyndvwMdwzduCd18/14/2025 4:27 PM Cecil Jaramillo RN * Do you have difficulty dressing or bathing?AnswerDate of AssessmentAuthorNo 05/31/2024 4:27 PM Cecil Jaramillo RN * Because of a physical, mental, or emotional condition, do you have difficulty doing errands alone such as visiting a doctor's office or shopping?AnswerDate of ApodbmxqqmLzpyjqAu86/14/2025 4:27 PM Cecil Jaramillo RN documented as of this encounter Mental Status * Because of a physical, mental, or emotional condition, do you have serious difficulty concentrating, remembering, or making decisions?AnswerEntry Date SallpwLl57/14/2025 4:27 PM Cecil Jaramillo RN documented in this encounter Miscellaneous Notes * Telephone Encounter - Maty Andrade [facility] - 04/02/2025 12:[address] Franz, Please see the below [employer] message and contact patient to advise within 72 hours. [facility]. Prevymis approved and we should have tomorrow. I told Tara on liver team. documented in this encounter Plan of Treatment DateTypeDepartmentCare Team (Latest Contact Info)Atzgnnhqmav45/30/2025 11:15 AM ESTAppointment Radiology [address] [address] post liver tx follow up04/15/2025 12:30 PM ESTOffice Visit Transplant Center [address] [address] Kathy Ryan APRN.PERSONAL LINES ACCOUNT EXECUTIVE 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]documented as of this encounter Goals GoalPatient Goal TypeAssociated ProblemsRecent ProgressPatient-Stated?Author Blood Pressure < 130/80 Blood Fhibtwxa839/71(02/10/2025 12:30 PM EDT)Vanessa Kulkarni, MDdocumented as of this encounter Visit Diagnoses Not on filedocumented in this encounter Care Teams Team MemberRelationshipSpecialtyStart DateEnd Date Rusty Delgado II, MD [address] [facility] [address] [place] [address] PCP - GeneralInternal Medicine05/28/24 Irena Johnson MD 3000 [facility] 1620 [place] [phone] XsxpnykihNezoujkolglkzwqb41/26/24 Vanessa Arora MD 9506 [place], [place] [phone] Primary Staff PhysicianCardiology05/02/24 Carina Ziegler, RN [facility] 9500 [place] [address] Registered NurseTransplant Center09/17/24 [place] [address] [facility] [facility] 206 [place], [place] [address] PhysicianNephrology11/19/24documented as of this encounter
--- OUTSIDE RECORDS SUMMARY | 2025-04-07 09:22 | XMS_ITS | Encounter Summary ---
Author Organization [facility] Address [address] [phone] Care Team Providers Care Core Finisher Name Role Phone Irena Johnson MD Unavailable Vanessa Arora MD Unavailable [phone] Danny WONG MD, Daniel B Primary Care Provider [phone] Carina Ziegler RN Unavailable Unavailable Chelsea Trinidad MD Unavailable [phone] Source Comments In the event this information is protected by the Federal Confidentiality of Alcohol and Drug AbusePatient Records regulations: The Federal rules restrict any use of the information to criminally investigate or prosecute any alcohol or drug abuse patient.[facility] Encounter Details DateTypeDepartmentCare Team (Latest Contact Info)Oldqvkfooup80/16/2025 Patient Msg Transplant Center [address] [phone] Carina Ziegler, RN [facility] [address] [place] [address] checking in Social History Tobacco UseTypesPacks/DayYears UsedDateSmoking Tobacco: IudixgMtlwaspkmk803 02/18/1971 - 02/18/1991Smokeless Tobacco: NeverAlcohol UseStandard Drinks/Week [...] were you homeless or living in a penitentiary (including now)?No11/25/2024HC UtilitiesAnswerDate RecordedIn the past 12 months has the [employer], gas, oil, or water [employer] threatened to shut off services in your home?No11/25/2024rea Deprivation IndexAnswerDate RecordedNational Score (1-100), lower number is lower tmlf955804/25/2024State Score (1-10), lower number is lower aixo32804/25/2024 Data from: https://www.neighborhoodatlas.medicine.[facility].edu/. 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 on fileNot on fileNot on filedocumented as of this encounter Functional Status * Are you deaf or do you have serious difficulty hearing?AnswerDate of BvcambxxeeBwcsggQq13/14/2025 4:27 PM Cecil Jaramillo RN * Are you blind or do you have serious difficulty seeing, even when wearing glasses?AnswerDate of WrvqiubvctQwyhpbXs81/14/2025 4:27 PM Cecil Jaramillo RN * Do you have serious difficulty walking or climbing stairs?AnswerDate of DasmgfizygQgnjipLe41/14/2025 4:27 PM Cecil Jaramillo RN * Do you have difficulty dressing or bathing?AnswerDate of AssessmentAuthorNo 05/31/2024 4:27 PM Cecil Jaramillo RN * Because of a physical, mental, or emotional condition, do you have difficulty doing errands alone such as visiting a doctor's office or shopping?AnswerDate of RutfnablwjNzqtyiRv05/14/2025 4:27 PM Cecil Jaramillo RN documented as of this encounter Mental Status * Because of a physical, mental, or emotional condition, do you have serious difficulty concentrating, remembering, or making decisions?AnswerEntry Date NaiwmxWm85/14/2025 4:27 PM Cecil Jaramillo RN documented in this encounter Plan of Treatment DateTypeDepartmentCare Team (Latest Contact Info)Xmyfeiczjvb15/30/2025 11:15 AM ESTAppointment Radiology [address] [address] post liver tx follow up04/15/2025 12:30 PM ESTOffice Visit Transplant Center [address] [address] Kathy Ryan APRN.[facility] [address] [place] [address] [place] [phone] post liver tx follow up04/16/2025 1:30 PM Infectious Disease 9300 [place] [address] Amanda Franz MD 9500 [place] [address] CMV Virtual Appt06/11/2025 1:00 PM ESTAppointment Gastroenterology [address] [address] Jane Correia MD 9500 [place], [place] [phone] 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]documented as of this encounter Goals GoalPatient Goal TypeAssociated ProblemsRecent ProgressPatient-Stated?Author Blood Pressure < 130/80 Blood Obsapdzq623/71(02/10/2025 12:30 PM EDT)Vanessa Kulkarni, MDdocumented as of this encounter Visit Diagnoses Not on filedocumented in this encounter Care Teams Team MemberRelationshipSpecialtyStart DateEnd Date Rusty Delgado II, MD 112 [facility] 110 [place] [address] PCP - GeneralInternal Medicine05/28/24 Irena Johnson MD 3000 [facility] 1620 [facility] [place] [phone] HwbntheitWldpdzpmliqlxvqk64/26/24 Vanessa Arora MD 9500 [place], [place] [phone] Primary Staff PhysicianCardiology05/02/24 Carina Ziegler RN [facility] 9500 [place] [address] Registered NurseTransplant Center09/17/24 [place] [address] [address] [place] [address] PhysicianNephrology11/19/24documented as of this encounter
--- OUTSIDE RECORDS SUMMARY | 2025-04-07 09:22 | XMS_ITS | Encounter Summary ---
Author Organization [facility] Address [address] [id number] Care Team Providers Care Construction Mgr Name Role Phone Irena Jonhson MD Unavailable Vanessa Arora MD Unavailable [phone] Danny WONG MD, Daniel B Primary Care Provider [phone] Carina Ziegler RN Unavailable Unavailable Chelsea Trinidad MD Unavailable [phone] Source Comments In the event this information is protected by the Federal Confidentiality of Alcohol and Drug AbusePatient Records regulations: The Federal rules restrict any use of the information to criminally investigate or prosecute any alcohol or drug abuse patient.[facility] Encounter Details DateTypeDepartmentCare Team (Latest Contact Info)Yhogfzucctj72/29/2025 Get Medical Advice Transplant Center [address] [phone] Carina Ziegler, RN [address] [address] Prevymis Social History Tobacco UseTypesPacks/DayYears UsedDateSmoking Tobacco: ZocdwxIstnblafkj476 02/18/1971 - 02/18/1991Smokeless Tobacco: NeverAlcohol UseStandard Drinks/Week [...] RecordedIn the past 12 months has the [employer], gas, oil, or water [employer] threatened to shut off services in your home?No11/25/2024rea Deprivation IndexAnswerDate RecordedNational Score (1-100), lower number is lower flar717704/25/2024State Score (1-10), lower number is lower gwgr68304/25/2024 Data from: https://www.neighborhoodatlas.medicine.[facility].edu/. 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 on fileNot on fileNot on filedocumented as of this encounter Functional Status * Are you deaf or do you have serious difficulty hearing?AnswerDate of IdguwwerdxSccxvlHa60/14/2025 4:27 PM Cecil Jaramillo RN * Are you blind or do you have serious difficulty seeing, even when wearing glasses?AnswerDate of LqwxnkesxkZzruqdKj29/14/2025 4:27 PM Cecil Jaramillo RN * Do you have serious difficulty walking or climbing stairs?AnswerDate of LzmpcoareiTlttpeUz36/14/2025 4:27 PM Cecil Jaramillo RN * Do you have difficulty dressing or bathing?AnswerDate of AssessmentAuthorNo 05/31/2024 4:27 PM Cecil Jaramillo RN * Because of a physical, mental, or emotional condition, do you have difficulty doing errands alone such as visiting a doctor's office or shopping?AnswerDate of KsbwyopamzNziualMm68/14/2025 4:27 PM Cecil Jaramillo RN documented as of this encounter Mental Status * Because of a physical, mental, or emotional condition, do you have serious difficulty concentrating, remembering, or making decisions?AnswerEntry Date ZjetjiLd73/14/2025 4:27 PM Cecil Jaramillo RN documented in this encounter Plan of Treatment DateTypeDepartmentCare Team (Latest Contact Info)Vpbsfomehiz22/30/2025 11:15 AM ESTAppointment Radiology [address] [address] post liver tx follow up04/15/2025 12:30 PM ESTOffice Visit Transplant Center [address] [address] Kathy Ryan, DRAFTER REFRIGERATION.LUMP ROLLER [address] [place] [address], [place] [phone] post liver tx follow up04/16/2025 1:30 PM Infectious Disease 9300 [place] [address] Amanda Franz MD 9500 [place] [address] CMV Virtual Appt06/11/2025 1:00 PM ESTAppointment Gastroenterology [address] [address] Jane Correia MD 9500 [place], [place] [phone] 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]documented as of this encounter Goals GoalPatient Goal TypeAssociated ProblemsRecent ProgressPatient-Stated?Author Blood Pressure < 130/80 Blood Spoednxw758/71(02/10/2025 12:30 PM EDT)Vanessa Kulkarni, MDdocumented as of this encounter Visit Diagnoses Not on filedocumented in this encounter Care Teams Team MemberRelationshipSpecialtyStart DateEnd Date Rusty Delgado II, MD 112 [facility] 110 [place] [address] PCP - GeneralInternal Medicine05/28/24 Irena Johnson MD 3000 [facility] 1620 [facility] [place] [phone] DqcyycpguCkstityeevwgfozc71/26/24 Vanessa Arora MD 9500 [place], [place] [address] Primary Staff PhysicianCardiology05/02/24 Carina Ziegler RN [facility] [address] [place] [address] Registered NurseTransplant Center09/17/24 [place] [address] [address] [facility] 206 [place] [address] PhysicianNephrology11/19/24documented as of this encounter
--- OUTSIDE RECORDS SUMMARY | 2025-04-07 09:22 | XMS_ITS | Encounter Summary ---
Author Organization [facility] Address [address] [place] [address] Care Team Providers Care Brewery Pumper Name Role Phone Irena Johnson MD Unavailable Vanessa Arora MD Unavailable [phone] Danny WONG MD, Daniel B Primary Care Provider [phone] Carina Ziegler RN Unavailable Unavailable Chelsea Trinidad MD Unavailable [phone] Source Comments In the event this information is protected by the Federal Confidentiality of Alcohol and Drug AbusePatient Records regulations: The Federal rules restrict any use of the information to criminally investigate or prosecute any alcohol or drug abuse patient.[facility] Encounter Details DateTypeDepartmentCare Team (Latest Contact Info)Qoltocjfomo03/05/2025Results Follow-Up Transplant Center [address] [phone] Carina Ziegler, RN [facility] [address] [place] [address] Social History Tobacco UseTypesPacks/DayYears UsedDateSmoking Tobacco: PpjnunYbqoyjjivr240 02/18/1971 - 02/18/1991Smokeless Tobacco: NeverAlcohol UseStandard Drinks/Week [...] homeless or living in a correction (including now)?No11/25/2024HC UtilitiesAnswerDate RecordedIn the past 12 months has the [employer] gas, oil, or water [employer] threatened to shut off services in your home?No11/25/2024rea Deprivation IndexAnswerDate RecordedNational Score (1-100), lower number is lower wdlz454704/25/2024State Score (1-10), lower number is lower motj35104/25/2024 Data from: https://www.neighborhoodatlas.medicine.[facility].edu/. 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 on fileNot on filedocumented as of this encounter Functional Status * Are you deaf or do you have serious difficulty hearing?AnswerDate of WkjldgxrcbGeuhyqCg13/14/2025 4:27 PM Cecil Jaramillo RN * Are you blind or do you have serious difficulty seeing, even when wearing glasses?AnswerDate of NvmjcdgdyuPuaagwGf62/14/2025 4:27 PM Cecil Jaramillo RN * Do you have serious difficulty walking or climbing stairs?AnswerDate of VcunojtphiWgvspzXf27/14/2025 4:27 PM Cecil Jaramillo RN * Do you have difficulty dressing or bathing?AnswerDate of AssessmentAuthorNo 05/31/2024 4:27 PM Cecil Jaramillo RN * Because of a physical, mental, or emotional condition, do you have difficulty doing errands alone such as visiting a doctor's office or shopping?AnswerDate of WyxoyrfllkVpgmumTc76/14/2025 4:27 PM Cecil Jaramillo RN documented as of this encounter Mental Status * Because of a physical, mental, or emotional condition, do you have serious difficulty concentrating, remembering, or making decisions?AnswerEntry Date EjbxaiDa94/14/2025 4:27 PM Cecil Jaramillo RN documented in this encounter Miscellaneous Notes * Result Encounter Note - Carina Ziegler RN - 03/21/2025 4:30 PM EST Reviewed liver transplant results and stable-no changes at this time. Carina Ziegler RN (Molly), BSN, [facility] Liver Special Forces Specialist documented in this encounter Plan of Treatment DateTypeDepartmentCare Team (Latest Contact Info)Owpuzjweutz17/30/2025 11:15 AM ESTAppointment Radiology [address] [address] post liver tx follow up04/15/2025 12:30 PM ESTOffice Visit Transplant Center [address] [address] Kathy Ryan, FOOD AND BEVERAGE MANAGER.CHURCH HISTORY PROFESSOR [address] [phone] post liver tx follow up04/16/2025 1:[address] 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 110 [place] [address] PCP - GeneralInternal Medicine05/28/24 Irena Johnson MD 3000 [facility] 1620 [facility] [place] [address] CftbeftplIobehhszrvcxozmj36/26/24 Vanessa Arora MD 0503 [place] [address] Primary Staff PhysicianCardiology05/02/24 Carina Ziegler RN [facility] 1440 [place] [address] Registered NurseTransplant Center09/17/24 [place] [address] [address] [place], [place] [address] PhysicianNephrology11/19/24documented as of this encounter
--- OUTSIDE RECORDS SUMMARY | 2025-04-07 09:22 | XMS_ITS | Encounter Summary ---
Author Organization [facility] Address [address] [place] [address] Care Team Providers Care Slip Cover Cutter Name Role Phone Irena Johnson MD Unavailable Vanessa Arora MD Unavailable Danny WONG MD, Daniel B Primary Care Provider [phone] Carina Ziegler RN Unavailable Unavailable Chelsea Trinidad MD Unavailable [phone] Source Comments In the event this information is protected by the Federal Confidentiality of Alcohol and Drug AbusePatient Records regulations: The Federal rules restrict any use of the information to criminally investigate or prosecute any alcohol or drug abuse patient.[facility] Reason for Visit * ReasonCommentsRx Refillsvalcyte Encounter Details DateTypeDepartmentCare Team (Latest Contact Info)Dyemauqgumv18/11/2025Telephone Transplant Center [address] [phone] Carina Ziegler, RN [facility] [address] [place] [address] Rx Refills (valcyte) Social History Tobacco UseTypesPacks/DayYears UsedDateSmoking Tobacco: LcbfxpWmrpipfsbn622 02/18/1971 - 02/18/1991Smokeless Tobacco: NeverAlcohol UseStandard Drinks/Week [...] homeless or living in a custodial (including now)?No11/25/2024HC UtilitiesAnswerDate RecordedIn the past 12 months has the electric, gas, oil, or water [employer] threatened to shut off services in your home?No11/25/2024rea Deprivation IndexAnswerDate RecordedNational Score (1-100), lower number is lower jytg389504/25/2024State Score (1-10), lower number is lower pgqm40604/25/2024 Data from: https://www.neighborhoodatlas.medicine.[facility].edu/. 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 on fileNot on fileNot on filedocumented as of this encounter Functional Status * Are you deaf or do you have serious difficulty hearing?AnswerDate of YfmpkllyeoYyrzolJh54/14/2025 4:27 PM Cecil Jaramillo RN * Are you blind or do you have serious difficulty seeing, even when wearing glasses?AnswerDate of YowpsqeohgTgjdviDb15/14/2025 4:27 PM Cecil Jaramillo RN * Do you have serious difficulty walking or climbing stairs?AnswerDate of EeergmbqzyFpmvraPq47/14/2025 4:27 PM Cecil Jaramillo RN * Do you have difficulty dressing or bathing?AnswerDate of AssessmentAuthorNo 05/31/2024 4:27 PM Cecil Jaramillo RN * Because of a physical, mental, or emotional condition, do you have difficulty doing errands alone such as visiting a doctor's office or shopping?AnswerDate of IilmrsvttwSyypekPi27/14/2025 4:27 PM Cecil Jaramillo RN documented as of this encounter Mental Status * Because of a physical, mental, or emotional condition, do you have serious difficulty concentrating, remembering, or making decisions?AnswerEntry Date YlevykHx58/14/2025 4:27 PM Cecil Jaramillo RN documented in this encounter Miscellaneous Notes * Telephone Encounter - Carina Ziegler RN - 03/27/2025 2:13 PM EST Per r/w Dr Franz in [place], CMV up to 1,000 now. Plan to start valcyte 450mg daily and will move forward with redoing the [facility] application with Shelby as the provider. I will call to d/w pt . Labs to continue weekly. Script sent and pt will check when they can mushroom picker and start. Tara Ziegler (Molly), RN, BSN, [facility] Liver Geological Technician documented in this encounter Plan of Treatment DateTypeDepartmentCare Team (Latest Contact Info)Qzaurgdzkev07/30/2025 11:15 AM ESTAppointment Radiology [address] [address] post liver tx follow up04/15/2025 12:30 PM ESTOffice Visit Transplant Center [address] [address] Kathy Ryan APRN.GUM PULLER [address] [phone] post liver tx follow up04/16/2025 1:30 PM EST[facility] 9300 [place] [address] Amanda Franz MD 9500 [place], [place] [phone] CMV Virtual Appt06/11/2025 1:00 PM ESTAppointment Gastroenterology [address] [address] Jane Correia MD 9500 [place] [address] 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]documented as of this encounter Goals GoalPatient Goal TypeAssociated ProblemsRecent ProgressPatient-Stated?Author Blood Pressure < 130/80 Blood Xyyfeeph132/71(02/10/2025 12:30 PM EDT)Vanessa Kulkarni, MDdocumented as of this encounter Visit Diagnoses Not on filedocumented in this encounter Care Teams Team MemberRelationshipSpecialtyStart DateEnd Date Rusty Delgado II, MD 112 [facility] 110 [place] [address] PCP - GeneralInternal Medicine05/28/24 Irena Johnson MD 3000 [facility] 1620 [facility] [place] [address] NookfdokyJytmlrhpwffmrsjx00/26/24 Vanessa Arora MD 9500 [place], [place] [address] Primary Staff PhysicianCardiology05/02/24 Carina Ziegler, RN [facility] 9500 [place] [address] Registered NurseTransplant Center09/17/24 [place] [address] [address] [facility] 206 [place], [place] [phone] PhysicianNephrology11/19/24documented as of this encounter
--- OUTSIDE RECORDS SUMMARY | 2025-04-07 09:22 | XMS_ITS | Encounter Summary ---
Author Organization [facility] Address [address] [place] [address] Care Team Providers Care Audiology Director Name Role Phone Irena Johnson MD Unavailable Vanessa Arora MD Unavailable [phone] Danny WONG MD, Rusty Gomez Primary Care Provider [phone] Carina Ziegler RN Unavailable Unavailable Chelsea Trinidad MD Unavailable [phone] Source Comments In the event this information is protected by the Federal Confidentiality of Alcohol and Drug AbusePatient Records regulations: The Federal rules restrict any use of the information to criminally investigate or prosecute any alcohol or drug abuse patient.[facility] Encounter Details DateTypeDepartmentCare Team (Latest Contact Info)Jexvelohtbw96/10/2025 Patient Msg [facility] [address] [place] [address] Amanda Franz MD 9500 [place] [address] Visit Social History Tobacco UseTypesPacks/DayYears UsedDateSmoking Tobacco: ZpkfwaUvaiyijczy327 02/18/1971 - 02/18/1991Smokeless Tobacco: NeverAlcohol UseStandard Drinks/Week [...] homeless or living in a jail (including now)?No11/25/2024HC UtilitiesAnswerDate RecordedIn the past 12 months has the [employer], gas, oil, or water [employer] threatened to shut off services in your home?No11/25/2024rea Deprivation IndexAnswerDate RecordedNational Score (1-100), lower number is lower ybey471704/25/2024State Score (1-10), lower number is lower xdyc53804/25/2024 Data from: https://www.neighborhoodatlas.medicine.[facility].edu/. 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 on fileNot on fileNot on filedocumented as of this encounter Functional Status * Are you deaf or do you have serious difficulty hearing?AnswerDate of ItxivyonulDfhfaiEm99/14/2025 4:27 PM Cecil Jaramillo RN * Are you blind or do you have serious difficulty seeing, even when wearing glasses?AnswerDate of NdxzptgjorFndcbgXh10/14/2025 4:27 PM Cecil Jaramillo RN * Do you have serious difficulty walking or climbing stairs?AnswerDate of DmpapoasdtYrkmnrZa00/14/2025 4:27 PM Cecil Jaramillo RN * Do you have difficulty dressing or bathing?AnswerDate of AssessmentAuthorNo 05/31/2024 4:27 PM Cecil Jaramillo RN * Because of a physical, mental, or emotional condition, do you have difficulty doing errands alone such as visiting a doctor's office or shopping?AnswerDate of JgofupuayxKwhnfpTh86/14/2025 4:27 PM Cecil Jaramillo RN documented as of this encounter Mental Status * Because of a physical, mental, or emotional condition, do you have serious difficulty concentrating, remembering, or making decisions?AnswerEntry Date TmkxffHi18/14/2025 4:27 PM Cecil Jaramillo RN documented in this encounter Plan of Treatment DateTypeDepartmentCare Team (Latest Contact Info)Yhfhedoukaw71/30/2025 11:15 AM ESTAppointment Radiology [address] [address] post liver tx follow up04/15/2025 12:30 PM ESTOffice Visit Transplant Center [address] [address] Kathy Ryan, CHECKER DUMP GROUNDS.BURR PICKER 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]documented as of this encounter Goals GoalPatient Goal TypeAssociated ProblemsRecent ProgressPatient-Stated?Author Blood Pressure < 130/80 Blood Wydokecf768/71(02/10/2025 12:30 PM EDT)Vanessa Kulkarni, MDdocumented as of this encounter Visit Diagnoses Not on filedocumented in this encounter Care Teams Team MemberRelationshipSpecialtyStart DateEnd Date Rusty Delgado II, MD [address] [facility] 110 [place] [address] PCP - GeneralInternal Medicine05/28/24 Irena Johnson MD 3000 [facility] 1620 [facility] [place] [address] KmbpfxomeTytzeoamyxbifwbu72/26/24 Vanessa Arora MD [address]00 [place], [place] [phone] Primary Staff PhysicianCardiology05/02/24 Carina Ziegler RN [facility] [address] [place] [address] Registered NurseTransplant Center09/17/24 [place] [address] [address] [phone] PhysicianNephrology11/19/24documented as of this encounter
--- OUTSIDE RECORDS SUMMARY | 2025-04-07 09:22 | XMS_ITS | Encounter Summary ---
Author Organization [facility] Address [address] [id number] Care Team Providers Care Salon Assistant Name Role Phone Irena Johnson MD Unavailable Vanessa Arora MD Unavailable [phone] Danny WONG MD, Daniel B Primary Care Provider [phone] Carina Ziegler RN Unavailable Unavailable Chelsea Trinidad MD Unavailable [phone] Source Comments In the event this information is protected by the Federal Confidentiality of Alcohol and Drug AbusePatient Records regulations: The Federal rules restrict any use of the information to criminally investigate or prosecute any alcohol or drug abuse patient.[facility] Encounter Details DateTypeDepartmentCare Team (Latest Contact Info)Nxcvnsvzloh45/17/2025Orders Only Transplant Center [address] [phone] Carina Ziegler, RN [facility] [address] [place] [address] Disorder of liver; Liver replaced by transplant (HCC) Social History Tobacco UseTypesPacks/DayYears UsedDateSmoking Tobacco: SajutcIqiydemkcs801 02/18/1971 - 02/18/1991Smokeless Tobacco: NeverAlcohol UseStandard Drinks/Week [...] RecordedIn the past 12 months has the [employer], gas, oil, or water [employer] threatened to shut off services in your home?No11/25/2024rea Deprivation IndexAnswerDate RecordedNational Score (1-100), lower number is lower cuix377504/25/2024State Score (1-10), lower number is lower upfe90104/25/2024 Data from: https://www.neighborhoodatlas.medicine.[facility].edu/. 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 on fileNot on fileNot on filedocumented as of this encounter Functional Status * Are you deaf or do you have serious difficulty hearing?AnswerDate of CgdlcifpmwAuzhcnSw16/14/2025 4:27 PM Cecil Jaramillo RN * Are you blind or do you have serious difficulty seeing, even when wearing glasses?AnswerDate of ZvuvhdexunAyyqpqXr45/14/2025 4:27 PM Cecil Jaramillo RN * Do you have serious difficulty walking or climbing stairs?AnswerDate of QyqwokoajlEwpivsQz88/14/2025 4:27 PM Cecil Jaramillo RN * Do you have difficulty dressing or bathing?AnswerDate of AssessmentAuthorNo 05/31/2024 4:27 PM Cecil Jaramillo RN * Because of a physical, mental, or emotional condition, do you have difficulty doing errands alone such as visiting a doctor's office or shopping?AnswerDate of YuswdvltrtQseietSr50/14/2025 4:27 PM Cecil Jaramillo RN documented as of this encounter Mental Status * Because of a physical, mental, or emotional condition, do you have serious difficulty concentrating, remembering, or making decisions?AnswerEntry Date AfueamTf24/14/2025 4:27 PM Cecil Jaramillo RN documented in this encounter Plan of Treatment DateTypeDepartmentCare Team (Latest Contact Info)Enngfveydsn27/30/2025 11:15 AM ESTAppointment Radiology [address] [address] post liver tx follow up04/15/2025 12:30 PM ESTOffice Visit Transplant Center [address] [address] Siudowski, Kathy A, DIRECTOR OF UNDERGRADUATE ADMISSIONS.BIOLOGICAL SCIENCES PROFESSOR 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]documented as of this encounter Goals GoalPatient Goal TypeAssociated ProblemsRecent ProgressPatient-Stated?Author Blood Pressure < 130/80 Blood Aaeoijjl428/71(02/10/2025 12:30 PM EDT)Vanessa Kulkarni, MDdocumented as of this encounter Visit Diagnoses Diagnosis Disorder of liver Unspecified disorder of liver Liver replaced by transplant (HCC) Liver replaced by transplant documented in this encounter Care Teams Team MemberRelationshipSpecialtyStart DateEnd Date Rusty Delgado II, MD 112 [facility] 110 [place] [address] PCP - GeneralInternal Medicine05/28/24 Irena Johnson MD 3000 [facility] 1620 [facility] [place] [address] RjwweobccKupfcmpyftaacrbp98/26/24 Vanessa Arora MD 9500 [place] [address] Primary Staff PhysicianCardiology05/02/24 Carina Ziegler RN [facility] [address] [place] [address] Registered NurseTransplant Center09/17/24 [place] [address] [address] [place] [address] PhysicianNephrology11/19/24documented as of this encounter
--- OUTSIDE RECORDS SUMMARY | 2025-04-07 09:22 | XMS_ITS | Encounter Summary ---
Author Organization [facility] Address [address] [phone] Care Team Providers Care Sfdc Developer Name Role Phone Irena Johnson MD Unavailable Vanessa Arora MD Unavailable [phone] Danny WONG MD, Daniel B Primary Care Provider [phone] Carina Ziegler RN Unavailable Unavailable Chelsea Trinidad MD Unavailable [phone] Source Comments In the event this information is protected by the Federal Confidentiality of Alcohol and Drug AbusePatient Records regulations: The Federal rules restrict any use of the information to criminally investigate or prosecute any alcohol or drug abuse patient.[facility] Encounter Details DateTypeDepartmentCare Team (Latest Contact Info)Zbdokuzysxl95/15/2025Orders Only Transplant Center [address] [phone] Carina Ziegler, RN [address] [address] Disorder of liver; Liver replaced by transplant (HCC) Social History Tobacco UseTypesPacks/DayYears UsedDateSmoking Tobacco: PkxjtoDkgiuslars689 02/18/1971 - 02/18/1991Smokeless Tobacco: NeverAlcohol UseStandard Drinks/Week [...] RecordedIn the past 12 months has the [employer], gas, oil, or water [employer] threatened to shut off services in your home?No11/25/2024rea Deprivation IndexAnswerDate RecordedNational Score (1-100), lower number is lower jmwh308804/25/2024State Score (1-10), lower number is lower jkni32704/25/2024 Data from: https://www.neighborhoodatlas.medicine.[facility].edu/. 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 on fileNot on filedocumented as of this encounter Functional Status * Are you deaf or do you have serious difficulty hearing?AnswerDate of EdhmchymhlGynqsxNy41/14/2025 4:27 PM Cecil Jaramillo RN * Are you blind or do you have serious difficulty seeing, even when wearing glasses?AnswerDate of DgfhxudqkeQesrgmOb51/14/2025 4:27 PM Cecil Jaramillo RN * Do you have serious difficulty walking or climbing stairs?AnswerDate of XjesujukomSgjldvFt39/14/2025 4:27 PM Cecil Jaramillo RN * Do you have difficulty dressing or bathing?AnswerDate of AssessmentAuthorNo 05/31/2024 4:27 PM Cecil Jaramillo RN * Because of a physical, mental, or emotional condition, do you have difficulty doing errands alone such as visiting a doctor's office or shopping?AnswerDate of TbwjxbvyydOahyqvMj76/14/2025 4:27 PM Cecil Jaramillo RN documented as of this encounter Mental Status * Because of a physical, mental, or emotional condition, do you have serious difficulty concentrating, remembering, or making decisions?AnswerEntry Date BqwvexWi67/14/2025 4:27 PM Cecil Jaramillo RN documented in this encounter Plan of Treatment DateTypeDepartmentCare Team (Latest Contact Info)Bkfywwvkwvs94/30/2025 11:15 AM ESTAppointment Radiology [address] [address] post liver tx follow up04/15/2025 12:30 PM ESTOffice Visit Transplant Center [address] [address] Siudowski, Kathy A, DIRECTOR MEDICAL AFFAIRS.TRAFFIC CHIEF [address] [place] [address] post liver tx follow up04/16/2025 1:30 [facility] 9300 [place] [address] Amanda Franz MD 9500 [place] [address] CMV Virtual Appt06/11/2025 1:00 PM ESTAppointment Gastroenterology [address] [address] Jane Correia MD 9500 [place] [address] 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]documented as of this encounter Goals GoalPatient Goal TypeAssociated ProblemsRecent ProgressPatient-Stated?Author Blood Pressure < 130/80 Blood Iaolzveu948/71(02/10/2025 12:30 PM EDT)Vanessa Kulkarni, MDdocumented as of this encounter Procedures Procedure NamePriorityDate/TimeAssociated DiagnosisCommentsMAGNESIUM BLDRoutine 03/31/2025 9:07 AM EST Disorder of liver Liver replaced by transplant (HCC) CYTOMEGALOVIRUS (CMV) DNA, QUANTITATIVE PCR, RWTHOZPzyqrcg77/15/2025 9:07 AM EST Liver replaced by transplant (HCC) TACROLIMUS/FK-506 UCHzxkbsu20/15/2025 9:07 AM EST Disorder of liver Liver replaced by transplant (HCC) PHOSPHORUS PMYJTQEZJOuthfzm30/15/2025 9:07 AM EST Disorder of liver Liver replaced by transplant (HCC) GGT OPFNmjexgm44/15/2025 9:07 AM EST Disorder of liver Liver replaced by transplant (HCC) COMPREHENSIVE METABOLIC GXWVVJhatbcl32/15/2025 9:07 AM EST Disorder of liver Liver replaced by transplant (HCC) CBC + RCWKJujbzgk71/15/2025 9:07 AM EST Disorder of liver Liver replaced by transplant (HCC) documented in this encounter Results * (ABNORMAL) CYTOMEGALOVIRUS (CMV) DNA, QUANTITATIVE PCR, PLASMA (03/31/2025 9:07 AM EST)ComponentValueRef RangeTest MethodAnalysis TimePerformed At Pathologist SignatureCMV DNA, Qn, JMN296(H)IU/mLExclusive Networks/uniRowYCMV DNA, QN PCR2.65(H)log IU/mLExclusive Networks/[facility] Comment: ? REFERENCE RANGE: NOT DETECTED ? For additional information, please refer to http://education.Commutable/faq/CMVandEBVPCR (This link is being provided for informational/ educational purposes only.) ? Test Performed at: [facility] [address] [place] [address] ?? JIM COLBERT MD,PHD Specimen (Source)Anatomical Location / LateralityCollection Method / Volume Collection TimeReceived TimeBloodBLOOD SPECIMEN / Lbvfsuc5503/31/2025 9:07 AM EST 03/31/2025 9:07 AM EST Narrative Authorizing ProviderResult TypeResult StatusShelli Boo APRN.CNPLABORATORY Final ResultPerforming OrganizationAddressCity/State/ZIP CodePhone Number [facility] [address] [place] [address] [facility] [address] [place] [address] * TACROLIMUS/FK-506 BL (03/31/2025 9:07 AM EST)ComponentValueRef RangeTest MethodAnalysis TimePerformed AtPathologist SignatureTacrolimus, Highly Sensitive, LC/MS/MS8.8mcg/LQUEST DIAGNOSTICSLAUGHLIN MEMORIAL HOSPITALComment: No definitive therapeutic or toxic ranges have been established. Optimal blood drug levels are influenced by type of transplant, patient response, time post- transplant, co-administration of other drugs, and drug formulation. The following trough range is a suggested guideline: 5.0-20.0 mcg/L. This test was developed and its analytical performance characteristics have been determined by [facility]. It has not been cleared or approved by the FDA. This assay has been validated pursuant to the CLIA regulations and is used for clinical purposes. Test Performed at: [facility] [address] ??[address] VIVIEN SALAS MD Specimen (Source)Anatomical Location / LateralityCollection Method / Volume Collection TimeReceived TimeBloodBLOOD SPECIMEN / Pnssjng2803/31/2025 9:07 AM EST 03/31/2025 9:07 AM EST Narrative Authorizing ProviderResult TypeResult StatusShelli Boo APRN.CNPLABORATORY Final ResultPerforming OrganizationAddressCity/State/ZIP CodePhone Number [facility] [address] [place] [address] [facility] [address] [address] * (ABNORMAL) PHOSPHORUS INORGANIC (03/31/2025 9:07 AM EST)ComponentValueRef RangeTest MethodAnalysis TimePerformed AtPathologist SignaturePhosphorus5.4(H) 2.1 - 4.3 mg/dLExclusive NetworksLAUGHLIN MEMORIAL HOSPITALComment: Test Performed at: [facility] ??[address] VIVIEN SALAS MD Specimen (Source)Anatomical Location / LateralityCollection Method / Volume Collection TimeReceived TimeBloodBLOOD SPECIMEN / Twpsjwx1403/31/2025 9:07 AM EST 03/31/2025 9:07 AM EST Narrative Authorizing ProviderResult TypeResult StatusShelli Boo APRN.CNPLABORATORY Final ResultPerforming OrganizationAddressty/State/ZIP CodePhone Number [facility] [address] [place] [address] [facility] [address] * MAGNESIUM (03/31/2025 9:07 AM EST)ComponentValueRef RangeTest MethodAnalysis TimePerformed AtPathologist SignatureMagnesium1.91.5 - 2.5 mg/dLExclusive NetworksLAUGHLIN MEMORIAL HOSPITALComment: Test Performed at: [facility]-[address] ??[address] VIVIEN SALAS MD Specimen (Source)Anatomical Location / LateralityCollection Method / Volume Collection TimeReceived TimeBloodBLOOD SPECIMEN / Glswkqq9503/31/2025 9:07 AM EST 03/31/2025 9:07 AM EST Narrative Authorizing ProviderResult TypeResult StatusShelli Boo APRN.CNPLABORATORY Final ResultPerforming OrganizationAddressCity/State/ZIP CodePhone Number [facility] [address] [place] [address] [facility] [address] * GGT (03/31/2025 9:07 AM EST)ComponentValueRef RangeTest MethodAnalysis Time Performed AtPathologist ExjsbohkwUPV892 - 70 U/LQSpacious AppLAUGHLIN MEMORIAL HOSPITAL Comment: Test Performed at: [facility] [address] ??[phone] VIVIEN SALAS MD Specimen (Source)Anatomical Location / LateralityCollection Method / Volume Collection TimeReceived TimeBloodBLOOD SPECIMEN / Obxhzmm7803/31/2025 9:07 AM EST 03/31/2025 9:07 AM EST Narrative Authorizing ProviderResult TypeResult StatusShelli Boo APRN.CNPLABORATORY Final ResultPerforming OrganizationAddressCity/State/ZIP CodePhone Number [facility] [address] [place] [address] [facility] [address] * (ABNORMAL) COMPREHENSIVE METABOLIC PANEL (03/31/2025 9:07 AM EST)Component ValueRef RangeTest MethodAnalysis TimePerformed AtPathologist SignatureGlucose 9565 - 99 mg/dLIntuitive Motion DIAGNOSTICSLAUGHLIN MEMORIAL HOSPITALComment: ? Fasting reference interval BUN32(H)7 - 25 mg/dLIntuitive Motion DIAGNOSTICS-SAND LAKECreatinine1.69(H)0.70 - 1.28 mg/dLExclusive Networks-SKRZCNGMHOHJTP43(L)> OR = 60 mL/min/1.68l3EPGSG DIAGNOSTICS-SAND LAKEBUN/Creat Klqwi559 - 22 (calc)Exclusive NetworksLAUGHLIN MEMORIAL HOSPITAL Qrjkis012737 - 146 mmol/LQUESMango Telecom-SAND LAKEPotassium5.9(H)3.5 - 5.3 mmol/LQUEST DIAGNOSTICS-TTUXAKTFWATrwvpjkq22614 - 110 mmol/LQUEST DIAGNOSTICS-DGEMQGXHJQDP25943 - 32 mmol/LQUEST DIAGNOSTICS-SAND LAKECalcium8.5 (L)8.6 - 10.3 mg/dLQUEST DIAGNOSTICS-SAND LAKEProtein, Total6.16.1 - 8.1 g/dL QUEST DIAGNOSTICS-SAND LAKEAlbumin3.0(L)3.6 - 5.1 g/dLQUEST DIAGNOSTICS-SAND LAKEGlobulin3.11.9 - 3.7 g/dL (calc)QUEST DIAGNOSTICS-SAND LAKEAlb/Glob Ratio1.01.0 - 2.5 (calc)QUEST [facility]NO[facility]-SAND LAKEBilirubin, Total0.30.2 - 1.2 mg/dLQUEST DIAGNOSTICS-SAND LAKEAlkaline Llyjfhmqola812(H)35 - 144 U/LQUEST DIAGNOSTICS-UVNESKMTLFHEL1262 - 35 U/LQUEST DIAGNOSTICS-QFZFNCUQTIWQZ561 - 46 U/LQUEST DIAGNOSTICS-SAND LAKEComment: Test Performed at: [facility] ??[address] VIVIEN SALAS MD Specimen (Source)Anatomical Location / LateralityCollection Method / Volume Collection TimeReceived TimeBloodBLOOD SPECIMEN / Srmvboa9403/31/2025 9:07 AM EST 03/31/2025 9:07 AM EST Narrative Authorizing ProviderResult TypeResult StatusMemehdi Boo APRN.CNPLABORATORY Final ResultPerforming OrganizationAddressCity/State/ZIP CodePhone Number [facility] [address] [place] [address] [employer] [address] * (ABNORMAL) COMPLETE BLOOD COUNT AND DIFFERENTIAL (03/31/2025 9:07 AM EST) ComponentValueRef RangeTest MethodAnalysis TimePerformed AtPathologist LnxjyuvgeYWE91.53.8 - 10.8 Thousand/uLQUEST DIAGNOSTICS-SAND LAKERBC3.07(L) 4.20 - 5.80 Million/uLQUEST DIAGNOSTICS-LPFBCUHDLOVloqncavmc74.1(L)13.2 - 17.1 g/dLQUEST DIAGNOSTICS-CQNJNPUBMWYclekpnizi87.4(L)39.4 - 51.1 %[facility]-LOBXGQJEPNYFL080.3(H)81.4 - 101.7 [facility] MCH32.927.0 - 33.0 pgQUEST BRYN MAWR HOSPITALMCHC32.231.6 - 35.4 g/dLQUEST PNKUZBGJEFN-NAJSDAZISUXRV-HR88.511.0 - 15.0 %[facility] Platelet Xowwb980223 - 400 Thousand/uLQUEST DIAGNOSTICS-WOWXLSUGWYXLI12.37.5 - 12.5 fLQUEST DIAGNOSTICSLAUGHLIN MEMORIAL HOSPITALAbs Neut (ANC)4,0111,500 - 7,800 cells/uL QUEST DIAGNOSTICSLAUGHLIN MEMORIAL HOSPITALAbs Lymph5,513(H)850 - 3,900 cells/uLQUEST DIAGNOSTICSLAUGHLIN MEMORIAL HOSPITALAbs Llln136082 - 950 cells/uLQUEST DIAGNOSTICSLAUGHLIN MEMORIAL HOSPITALAbs Iedod73330 - 500 cells/QUEST DIAGNOSTICSLAUGHLIN MEMORIAL HOSPITALAbs Eige469 - 200 cells/[facility]-[place] Neut%38.2%[facility] DIAGNOSTICS-SAND LAKELymph%52.5%[facility] [employer]-[place] Blaine%6.2%[facility] DIAGNOSTICS-SAND LAKEEosin%2.8%[facility] Data Storage GroupLAUGHLIN MEMORIAL HOSPITAL Baso%0.3%[facility]-SAND LAKEComment: Test Performed at: [address] ??[phone] VIVIEN SALAS MD Specimen (Source)Anatomical Location / LateralityCollection Method / Volume Collection TimeReceived TimeBloodBLOOD SPECIMEN / Ecjsvko8803/31/2025 9:07 AM EST 03/31/2025 9:07 AM EST Narrative Authorizing ProviderResult TypeResult StatusMeagan Rajeev CARLCNPLABORATORY Final ResultPerforming OrganizationAddressCity/State/ZIP CodePhone Number [facility] [address] [place] [address] [facility] [employer] [address] documented in this encounter Visit Diagnoses Diagnosis Disorder of liver Unspecified disorder of liver Liver replaced by transplant (HCC) Liver replaced by transplant documented in this encounter Care Teams Team MemberRelationshipSpecialtyStart DateEnd Date Rusty Delgado II, MD [address] [facility] 110 [place] [address] PCP - GeneralInternal Medicine05/28/24 Irena Johnson MD 3000 [facility] [place] [id number] KigflgwrqDggxajveatkfzllw99/26/24 Vanessa Arora MD 9500 [place], [place] [phone] Primary Staff PhysicianCardiology05/02/24 Carina Ziegler, RN [facility] 9500 [place] [address] Registered NurseTransplant Center09/17/24 [place] [address] [address] [facility] [address] [place], [place] [address] PhysicianNephrology11/19/24documented as of this encounter
--- OUTSIDE RECORDS SUMMARY | 2025-04-07 09:22 | XMS_ITS | Encounter Summary ---
Author Organization [facility] Address [address] [id number] Care Team Providers Care Coordinator Cardiopulmonary Services Name Role Phone Irena Johnson MD Unavailable Vanessa Arora MD Unavailable [phone] Danny WONG MD, Daniel B Primary Care Provider [phone] Carina Ziegler RN Unavailable Unavailable Chelsea Trinidad MD Unavailable [phone] Source Comments In the event this information is protected by the Federal Confidentiality of Alcohol and Drug AbusePatient Records regulations: The Federal rules restrict any use of the information to criminally investigate or prosecute any alcohol or drug abuse patient.[facility] Encounter Details DateTypeDepartmentCare Team (Latest Contact Info)Ubfgvfleokb19/10/2025Orders Only Transplant Center [address] [phone] Carina Ziegler, RN [facility] [address] [place] [address] Disorder of liver; Liver replaced by transplant (HCC) Social History Tobacco UseTypesPacks/DayYears UsedDateSmoking Tobacco: LwtxlvJnmmcloyxj541 02/18/1971 - 02/18/1991Smokeless Tobacco: NeverAlcohol UseStandard Drinks/Week [...] were you homeless or living in a mcfp (including now)?No11/25/2024HC UtilitiesAnswerDate RecordedIn the past 12 months has the [employer], gas, oil, or water [employer] threatened to shut off services in your home?No11/25/2024rea Deprivation IndexAnswerDate RecordedNational Score (1-100), lower number is lower onpr128904/25/2024State Score (1-10), lower number is lower tkdn53804/25/2024 Data from: https://www.neighborhoodatlas.medicine.[facility].edu/. 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 on fileNot on filedocumented as of this encounter Functional Status * Are you deaf or do you have serious difficulty hearing?AnswerDate of PytqlcntgdLhwmddUp61/14/2025 4:27 PM Cecil Jaramillo RN * Are you blind or do you have serious difficulty seeing, even when wearing glasses?AnswerDate of AecgultjnbZvyeleHf15/14/2025 4:27 PM Cecil Jaramillo RN * Do you have serious difficulty walking or climbing stairs?AnswerDate of PrdvzgdfpoZoyqtwQp97/14/2025 4:27 PM Cecil Jaramillo RN * Do you have difficulty dressing or bathing?AnswerDate of AssessmentAuthorNo 05/31/2024 4:27 PM Cecil Jaramillo RN * Because of a physical, mental, or emotional condition, do you have difficulty doing errands alone such as visiting a doctor's office or shopping?AnswerDate of LehffvvmrpEnydgcLq89/14/2025 4:27 PM Cecil Jaramillo RN documented as of this encounter Mental Status * Because of a physical, mental, or emotional condition, do you have serious difficulty concentrating, remembering, or making decisions?AnswerEntry Date WnypozZx78/14/2025 4:27 PM Cecil Jaramillo RN documented in this encounter Plan of Treatment DateTypeDepartmentCare Team (Latest Contact Info)Yglbzclxghx91/30/2025 11:15 AM ESTAppointment Radiology [address] [address] post liver tx follow up04/15/2025 12:30 PM ESTOffice Visit Transplant Center [address] [address] Siudowski, Kathy A, WIG STYLIST.LIAISON ENGINEER 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]documented as of this encounter Goals GoalPatient Goal TypeAssociated ProblemsRecent ProgressPatient-Stated?Author Blood Pressure < 130/80 Blood Ziqkxoum953/71(02/10/2025 12:30 PM EDT)Vanessa Kulkarni, MDdocumented as of this encounter Visit Diagnoses Diagnosis Disorder of liver Unspecified disorder of liver Liver replaced by transplant (HCC) Liver replaced by transplant documented in this encounter Care Teams Team MemberRelationshipSpecialtyStart DateEnd Date Rusty Delgado II, MD 112 [facility] 110 [place] [address] PCP - GeneralInternal Medicine05/28/24 Irena Johnson MD 3000 [facility] 1620 [facility] [place] [address] HculljhhgQixlozhcygosqlkt31/26/24 Vanessa Arora MD 9500 [place] [address] Primary Staff PhysicianCardiology05/02/24 Carina Ziegler RN [facility] [address] [place] [address] Registered NurseTransplant Center09/17/24 [place] [address] [address] [place] [address] PhysicianNephrology11/19/24documented as of this encounter
--- OUTSIDE RECORDS SUMMARY | 2025-04-07 09:22 | XMS_ITS | Encounter Summary ---
Author Organization [facility] Address [address] [place] [address] Care Team Providers Care Ski Tow Operator Name Role Phone Irena Johnson MD Unavailable Vanessa Arora MD Unavailable [phone] Danny WONG MD, Rusty Gomez Primary Care Provider [phone] Carina Ziegler RN Unavailable Unavailable Chelsea Trinidad MD Unavailable [phone] Source Comments In the event this information is protected by the Federal Confidentiality of Alcohol and Drug AbusePatient Records regulations: The Federal rules restrict any use of the information to criminally investigate or prosecute any alcohol or drug abuse patient.[facility] Encounter Details DateTypeDepartmentCare Team (Latest Contact Info)Ooevgpkjuyp37/10/2025Travel Social History Tobacco UseTypesPacks/DayYears UsedDateSmoking Tobacco: AcjdstDkrgpdcbyq303 02/18/1971 - 02/18/1991Smokeless Tobacco: NeverAlcohol UseStandard Drinks/Week [...] homeless or living in a fdc (including now)?No11/25/2024HC UtilitiesAnswerDate RecordedIn the past 12 months has the electric, gas, oil, or water [employer] threatened to shut off services in your home?No11/25/2024rea Deprivation IndexAnswerDate RecordedNational Score (1-100), lower number is lower wtvp184304/25/2024State Score (1-10), lower number is lower tzrf27104/25/2024 Data from: https://www.neighborhoodatlas.medicine.[facility].edu/. 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 on fileNot on filedocumented as of this encounter Functional Status * Are you deaf or do you have serious difficulty hearing?AnswerDate of TsuldkdrkwNiblugDt80/14/2025 4:27 PM Cecil Jaramillo RN * Are you blind or do you have serious difficulty seeing, even when wearing glasses?AnswerDate of RyhkkzszrkGlestyBl20/14/2025 4:27 PM Cecil Jaramillo RN * Do you have serious difficulty walking or climbing stairs?AnswerDate of DudjuacfxiWdoqwzIt74/14/2025 4:27 PM Cecil Jaramillo RN * Do you have difficulty dressing or bathing?AnswerDate of AssessmentAuthorNo 05/31/2024 4:27 PM Cecil Jaramillo RN * Because of a physical, mental, or emotional condition, do you have difficulty doing errands alone such as visiting a doctor's office or shopping?AnswerDate of WdpyqcotcpUakodrIn00/14/2025 4:27 PM Cecil Jaramillo RN documented as of this encounter Mental Status * Because of a physical, mental, or emotional condition, do you have serious difficulty concentrating, remembering, or making decisions?AnswerEntry Date YpgvcuUc34/14/2025 4:27 PM Cecil Jaramillo RN documented in this encounter Plan of Treatment DateTypeDepartmentCare Team (Latest Contact Info)Vekrfaxujig56/30/2025 11:15 AM ESTAppointment Radiology [address] [address] post liver tx follow up04/15/2025 12:30 PM ESTOffice Visit Transplant Center [address] [address] Kathy Ryan APRN.[facility] [address] [place] [address] post liver tx follow up04/16/2025 1:30 PM [facility] Infectious Disease [address] [place] [address] Amanda Franz MD [address] [place] [address] CMV Virtual Appt06/11/2025 1:00 PM ESTAppointment Gastroenterology [address] [address] Jane Correia MD [address] [place] [address] 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]documented as of this encounter Goals GoalPatient Goal TypeAssociated ProblemsRecent ProgressPatient-Stated?Author Blood Pressure < 130/80 Blood Aqbyahpz621/71(02/10/2025 12:30 PM EDT)Vanessa Kulkarni, MDdocumented as of this encounter Visit Diagnoses Not on filedocumented in this encounter Care Teams Team MemberRelationshipSpecialtyStart DateEnd Date Rusty Delgado II, MD [address] [facility] [address] [place] [address] PCP - GeneralInternal Medicine05/28/24 Irena Johnson MD [address] [facility] [address] [facility] [place] [address] HayknzdxdSfdpmzwgempppbws02/26/24 Vanessa Arora MD [address] [place] [address] Primary Staff PhysicianCardiology05/02/24 Carina Ziegler RN [facility] [address] [place] [address] Registered NurseTransplant Center09/17/24 [place] [address] [facility] [address] [place], [place] [id number] PhysicianNephrology11/19/24documented as of this encounter
--- OUTSIDE RECORDS SUMMARY | 2025-04-07 09:22 | XMS_ITS | Clinical Summary ---
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 Name Role Phone Danny Rusty Gomez Primary Care Provider [phone] Allergies Active AllergyReactionsCriticalityNoted DateCommentsDexmedetomidine Hcl In Nacl [...] 3 (three) times a day as needed (nausea).5Active mirtazapine (REMERON) 7.5 MG tablet Take 1 tablet (7.5 mg total) by mouth nightly.02/03/2025tive pantoprazole (PROTONIX) 40 MG EC/DR tablet Take 1 tablet (40 mg total) by mouth Daily at 6am.5Active tacrolimus (PROGRAF) 1 MG capsule Take 3 capsules (3 mg total) by mouth in the morning and 3 capsules (3 mg total) before bedtime.5Active Active Problems ProblemNoted DateDiagnosed DateCritical illness pgdwpswy79/15/2025 Encounters DateTypeDepartmentCare EjkkZxvverennen93/20/2025Plan of Care Documentation [address] [address] 01/27/2025Plan of Care Documentation [address] [address] 01/20/2025Plan of Care Documentation [address] [address] 01/17/2025Plan of Care Documentation [address] [address] 01/14/2025 6:40 PM EDT - 02/04/2025 3:01 PM EDTHospital Encounter [address] [address] Jonathan Cruz, Inderjit Chacon MD Critical illness myopathy (Primary Dx) Discharge Disposition: [facility] (S[facility])from Last 3 Months Immunizations ImmunizationAdministration DatesNext DueHep B, Zoaxcqlnjrz43/14/2025,06/15/2024, 05/02/2024Influenza Whole02/02/2025(Deferred: Offered and declined - refuse) Influenza, Edghafoeegg92/10/2023Moderna SARS-CoV-2 Rrehvbonkzu79/10/2021, 05/27/2020neumococcal Uhxlwtkfk61/18/2024SV, Cwictanzxbu47/24/2025Zoster 04/30/2022 Social History Tobacco UseTypesPacks/DayYears UsedDateSmoking Tobacco: [...] relatives?Once a week01/15/2025How often do you attend advent or jain services?Never01/15/2025Do you belong to any clubs or organizations such as advent groups, unions, fraternal or athletic groups, or school groups?No01/15/2025How often do you attend meetings of the clubs or organizations you belong to?Never01/15/2025re you , , , , never , or living with a partner?Wcjemee4301/15/2025UDIT-C AnswerDate RecordedQ1: How often do you have [...] medical care, and heating?Not hard at all01/15/2025 [employer] - Occupational Stress Questionnaire [...] homeless or living in a retirement (including now)?No01/15/2025Domestic Abuse AssessmentAnswerDate RecordedDo you feel safe in your relationships at home?Yes01/14/2025Physical AbuseDenies 01/14/2025HRSN Domestic Abuse - Type of AbuseNot on file01/14/2025HRSN Domestic Abuse - Time FrameNot on file01/14/2025HRSN Domestic Abuse - Signs and Symptoms Not on file01/14/2025Verbal CcqkzUndszl61/30/2025HRSN Domestic Abuse - Reported ToNot on file01/14/2025SM SDOH Transportation SourceAnswerDate RecordedHas lack of transportation kept you from medical appointments or from getting medications?No02/04/2025Has lack of transportation kept you from meetings, work, or from getting things needed for daily living?No02/04/2025HRSN Depression PHQ-2 AnswerDate RecordedFeeling down, depressed, or qerhvwup3090/21/2025Little interest or pleasure in doing jubkex7087Sex and Gender InformationValue Date RecordedSex Assigned at BirthNot on fileLegal VpaUafw7809/27/2024 2:00 PM EDT Gender IdentityNot on fileSexual OrientationNot on file Last Filed Vital Signs Vital SignReadingTime TakenCommentsBlood Hhyrsxit845/7902/04/2025 7:00 AM EDT Plpto198502/04/2025 7:00 AM NIJXjturfuqwau62.4 ??C (97.6 ??F)02/04/2025 7:00 AM EDTRespiratory Rpnl5019 7:00 AM EDTOxygen Xddrflapov41%02/04/2025 7:00 AM EDTInhaled Oxygen Concentration--Qscdgn48.6 kg (138 lb)02/04/2025 4:00 AM EDT Uzmxxo294.3 cm (5' 9 )01/15/2025 4:24 PM EDTBody Mass Index20.381 4:24 PM EDT Plan of Treatment Health MaintenanceDue DateLast DoneCommentsCT Ozbvbyfspohp60/18/1954FIT-DNA (Cologuard)1953FIT1953FOBT08/02/19530039Qbvxmwgnwjybu10/18/1954nnual Visit Topic1954Hepatitis C Xutptvqju94/18/1972Pneumococcal Vaccine: 65+ Years (1 of 2 - PCV)bdominal Aortic Aneurysm (AAA) Xmtrvhugi91/18/2019DTaP/Tdap/Td Vaccines (2 - Td or Tdap) Eeypknbityd85olorectal Cancer Zzaudgacm24/17/2035Hepatitis A VaccinesAged Out08/28/2024, 05/02/2024No longer eligible based on patient's age to complete this topicHepatitis B XvvzholwVtsliulhb20/14/2025, 06/15/2024, 05/02/2024HIB VaccinesAged OutNo longer eligible based on patient's age to complete this topicHPV VaccinesAged OutNo longer eligible based on patient's age to complete this topicIPV VaccinesAged OutNo longer eligible based on patient's age to complete this topicMeningococcal VaccineAged OutNo longer eligible based on patient's age to complete this topic Procedures Procedure NamePriorityDate/TimeAssociated DiagnosisCommentsMAGNESIUMRoutine 02/03/2025 4:48 AM EDT GAMMA UBYzoaftm00/20/2025 4:48 AM EDT C-REACTIVE LSZRUVLDemejso52/20/2025 4:48 AM EDT COMPREHENSIVE METABOLIC SRMDZIlkvtlc95/20/2025 4:48 AM EDT CMV DNA, QUANTITATIVE, LUBFcextcl34/20/2025 4:48 AM EDT CBC WITH AUTO DTIHPBKLGQIBYkqlagy86/20/2025 4:48 AM EDT N-TERMINAL PTJJLIStzkdlf10/20/2025 4:48 AM EDT TACROLIMUS QADGSFfamcjh11/20/2025 4:48 AM EDT INFVRFBTLBQturxfl57/20/2025 4:48 AM EDT XR CHEST 1 FYSUXC6701/31/2025 12:03 PM EDT SKQVVWGVNBchphdg65/16/2025 4:18 AM EDT GAMMA KLOlpiouv93/16/2025 4:18 AM EDT C-REACTIVE YJUPOTKJztfeff77/16/2025 4:18 AM EDT COMPREHENSIVE METABOLIC AHVTSVzflwjg86/16/2025 4:18 AM EDT CBC WITH AUTO HBXLGOWULFFDHogchxy66/16/2025 4:18 AM EDT N-TERMINAL OVHHEDXohjuib84/16/2025 4:18 AM EDT TACROLIMUS MJEWXKkghjes53/16/2025 4:18 AM EDT KZTHQOPLOXOokfpho66/16/2025 4:18 AM EDT CCDLSACRQVmvoizb15/13/2025 5:54 AM EDT GAMMA GKVefdvrw37/13/2025 5:54 AM EDT C-REACTIVE IJMOMBAIjpsull03/13/2025 5:54 AM EDT COMPREHENSIVE METABOLIC QTWMAZlpihwn15/13/2025 5:54 AM EDT CMV DNA, QUANTITATIVE, LTPBvnyhyk22/13/2025 5:54 AM EDT CBC WITH AUTO IXPDXCEOWHBPPtqtccg25/13/2025 5:54 AM EDT N-TERMINAL ZCTQJAHainjdv99/13/2025 5:54 AM EDT TACROLIMUS SRRXAFhbhyqm21/13/2025 5:54 AM EDT SBPZDILRVUTwmrjin24/13/2025 5:54 AM EDT C-REACTIVE URYWPQWXvxtjyx97/12/2025 5:30 AM EDT CBC WITH AUTO DGEIHRGVYQLWNdsauph68/12/2025 5:30 AM EDT EMUSJCQalaazv29/12/2025 5:30 AM EDT XMMJAMFPzflpwh22/12/2025 5:30 AM EDT WVYPkvnlwi34/11/2025 5:50 AM EDT URINALYSIS WITH MICROSCOPIC WITH REFLEX TO CULTURE, INZKTLZRrbvpic44/10/2025 3:[address] LUMBAR SPINE WO GJMJJJKCGZPE04/10/2025 2:[address] THORACIC SPINE WO FAAUKWWXTNRP59/10/2025 2:16 PM EDT XR CHEST 1 EVQTGY2101/24/2025 12:58 PM EDT TYPE AND YZHALFYajsfak03/10/2025 5:28 AM EDT YCUGnicews66/10/2025 5:28 AM EDT TRXZDWYJLBdxdwrj31/09/2025 9:48 AM EDT GAMMA RKVwxoumh35/09/2025 9:48 AM EDT C-REACTIVE ZYKZDCNHpgddou71/09/2025 9:48 AM EDT COMPREHENSIVE METABOLIC LPAPIQvndjmz34/09/2025 9:48 AM EDT CBC WITH AUTO AGIGRGMFIYYFBtfgkmp72/09/2025 9:48 AM EDT N-TERMINAL OHPBGBVtmfocx48/09/2025 9:48 AM EDT TACROLIMUS VADRFGjeqvpd89/09/2025 9:48 AM EDT NTLSSYJCQJWbxdoqc01/09/2025 9:48 AM EDT XZPAPFJQZHfojzpv73/06/2025 4:30 AM EDT GAMMA FXZmcdpew01/06/2025 4:30 AM EDT C-REACTIVE XSYQBOREifykng42/06/2025 4:30 AM EDT COMPREHENSIVE METABOLIC WXMCVVniegkg77/06/2025 4:30 AM EDT CMV DNA, QUANTITATIVE, CMMWbpkzll23/06/2025 4:30 AM EDT CBC WITH AUTO HUDQVBZIWUKTHslvvgn56/06/2025 4:30 AM EDT N-TERMINAL IYWOWXYqtqgad02/06/2025 4:30 AM EDT TACROLIMUS GHFAGKbosayy24/06/2025 4:30 AM EDT ZLNDBEISOCDgerynh26/06/2025 4:30 AM EDT C-REACTIVE ZTAWUCJXtkcuzv57/05/2025 11:11 AM EDT SEDIMENTATION RATE, IRVBCTBBVOkqmbbk51/05/2025 11:11 AM EDT CBC WITH AUTO MNTTPDNPNCUNNqrpqqw82/05/2025 11:11 AM EDT POCT OXDPNYTXrdqcxl51/04/2025 8:29 PM EDT POCT IIYOSRCTrxowyv46/04/2025 7:46 AM EDT XR ABDOMEN KUB W OBL OR UMLZWVGP36/03/2025 2:03 PM EDT XR ABDOMEN KUB W OBL OR MRWTJGEC42/02/2025 9:26 PM EDT XR ABDOMEN KUB W OBL OR UTZPFBHP60/02/2025 5:27 PM EDT XR ABDOMEN KUB W OBL OR XHQKTLSH38/02/2025 1:21 PM EDT URATTPYBNAjaxmmc62/02/2025 4:47 AM EDT GAMMA XWKvsvssv93/02/2025 4:47 AM EDT C-REACTIVE NTWRZMMYhbprsp82/02/2025 4:47 AM EDT COMPREHENSIVE METABOLIC QSWMOBacbjgh22/02/2025 4:47 AM EDT CBC WITH AUTO ZZJZHTULSNZUJsimhma44/02/2025 4:47 AM EDT N-TERMINAL IRQHMKHshnlox43/02/2025 4:47 AM EDT TACROLIMUS NBXMRBffaumh15/02/2025 4:47 AM EDT EINDNZSYCQQoonqfh56/02/2025 4:47 AM EDT XR CHEST 1 SXUKRO2601/15/2025 7:45 PM EDT TACROLIMUS TNSHRXzdjmje12/01/2025 5:30 AM EDT C-REACTIVE KMBACVHKhgqmjp05/01/2025 5:30 AM EDT GAMMA VKWesgwbt75/01/2025 5:30 AM EDT KZTJVZUBHGwidzhg26/01/2025 5:30 AM EDT COMPREHENSIVE METABOLIC MMBDVXtsycmc94/01/2025 5:30 AM EDT CBC WITH AUTO DYEOWXVRLVTKBnovlwa07/01/2025 5:30 AM EDT from Last 3 Months Results * (ABNORMAL) N-Terminal ProBNP (02/03/2025 4:48 AM EDT) Only the most recent of6 resultswithin the time period is included. ComponentValueRef RangeTest MethodAnalysis TimePerformed AtPathologist Signature NT PRO GWY168(H)<125 pg/mL02/03/2025 9:01 AM EDTFAIRVIEW LABORATORYSpecimen (Source)Anatomical Location / LateralityCollection Method / VolumeCollection TimeReceived TimeBlood (Blood, Venous)02/03/2025 4:48 AM EDT1 8:07 AM EDT Narrative Authorizing ProviderResult TypeResult StatusSadenise Cruz [facility] BLOOD ORDERABLESFinal ResultPerforming OrganizationAddressCity/State/ZIP CodePhone Number [facility] [address] [place] [address] [facility] [address] [place] [address] * (ABNORMAL) CBC AUTO DIFFERENTIAL (02/03/2025 4:48 AM EDT) Only the most recent of9 resultswithin the time period is included. ComponentValueRef RangeTest MethodAnalysis TimePerformed AtPathologist Signature WBC14.53(H)3.70 - 11.00 k/uL02/03/2025 8:45 AM EDTFAIRVIEW LABORATORYRBC2.41(L) 4.20 - 6.00 m/uL02/03/2025 8:45 AM EDTFAIRVIEW LABORATORYHemoglobin7.9(L)13.0 - 17.0 g/dL02/03/2025 8:45 AM EDTFAIRVIEW MEJLTCPDYQPomlwdpida04.2(L)39.0 - 51.0 % 02/03/2025 8:45 AM EDTFAIRVIEW NZVAHWFLFVPJC247.6(H)80.0 - 100.0 fL02/03/2025 8:45 AM EDTFAIRVIEW BOKUXTCOLTFRR19.826.0 - 34.0 pg02/03/2025 8:45 AM [facility] ZCMEOTRPUAYCOI87.330.5 - 36.0 g/dL02/03/2025 8:45 AM [facility] LABORATORYRDW-CV20.1(H)11.5 - 15.0 %02/03/2025 8:45 AM [facility] Spqffhaup372(L)150 - 400 k/uL02/03/2025 8:45 AM [facility] IIZARCBOHXOGS46.49.0 - 12.7 fL02/03/2025 8:45 AM EDSA[facility] LABORATORYNeutrophils Oevtfmgpf28.3% 02/03/2025 8:45 AM [facility] LABORATORYNeutrophils Bluerhmr49.82(H)1.45 - 7.50 k/uL02/03/2025 8:45 AM EDSA[facility] LABORATORYLymphocytes % by manual count7.0% 02/03/2025 8:45 AM [facility] LABORATORYLymphocytes Absolute1.011.00 - 4.00 k/uL02/03/2025 8:45 AM [facility] LABORATORYMonocytes % by manual count=5.0% 02/03/2025 8:45 AM [facility] LABORATORYMonocytes Absolute0.73<0.87 k/uL 02/03/2025 8:45 AM [facility] LABORATORYEosinophils Manual3.7%02/03/2025 8:45 AM ED[facility] LABORATORYEosinophils Absolute0.54(H)<0.46 k/uL02/03/2025 8:45 AM EDSA[facility] LABORATORYBasophils manual0.3%02/03/2025 8:45 AM EDSA[facility] LABORATORYBasophils Absolute0.04<0.11 k/uL02/03/2025 8:45 AM EDSA[facility] LABORATORYImmature grans %2.7%02/03/2025 8:45 AM EDSA[facility] LABORATORYGrans (Absolute)0.39(H)<0.10 k/uL02/03/2025 8:45 AM EDSA[facility] LABORATORYNRBC % Auto 0.0/100 WBC02/03/2025 8:45 AM EDTFAIRVIEW LABORATORYAbsolute NRBC<0.01<0.01 k/uL 02/03/2025 8:45 AM EDTFAIRVIEW LABORATORYDifferential GefhIgwx82/20/2025 8:45 AM EDTFAIRVIEW LABORATORYSpecimen (Source)Anatomical Location / Laterality Collection Method / VolumeCollection TimeReceived TimeBlood (Blood, Venous) 02/03/2025 4:48 AM EDT1 8:07 AM EDT Narrative Authorizing ProviderResult TypeResult StatusJonathan Nurari DOLAB BLOOD ORDERABLESFinal ResultPerforming OrganizationAddressCity/State/ZIP CodePhone Number [facility] [address] [place] [address] [facility] [address] [place] [address] * Tacrolimus level (02/03/2025 4:48 AM EDT) Only the most recent of7 resultswithin the time period is included. ComponentValueRef RangeTest MethodAnalysis TimePerformed AtPathologist Signature Tacrolimus Lvl6.35.0 - 20.0 ng/mL02/03/2025 6:05 PM EDTCA[facility] Comment: Individualized target levels for [...] situation. Test performed by chemiluminescent immunoassay using Shineon Alinity i. Specimen (Source)Anatomical Location / LateralityCollection Method / Volume Collection TimeReceived TimeBlood (Blood, Venous)02/03/2025 4:48 AM EDT 02/03/2025 1:56 PM EDT Narrative Authorizing ProviderResult TypeResult StatusJonathan Nurari DOLAB BLOOD ORDERABLESFinal ResultPerforming OrganizationAddressCity/State/ZIP CodePhone Number [facility] [employer] [address] [place] [address] [facility] [address] [place] [address] * CMV DNA, QUANTITATIVE, PCR (02/03/2025 4:48 AM EDT) Only the most recent of3 resultswithin the time period is included. ComponentValueRef RangeTest MethodAnalysis TimePerformed AtPathologist Signature Cytomegalovirus LOG (copies/mL)Not detectedNot Xvjhlppk54/20/2025 9:24 PM EDT [facility] MAIN LABSpecimen (Source)Anatomical Location / Laterality Collection Method / VolumeCollection TimeReceived TimeBlood (Blood, Venous) 02/03/2025 4:48 AM EDT1 1:56 PM EDT Narrative Authorizing ProviderResult TypeResult StatusO[facility] BLOOD ORDERABLESFinal ResultPerforming OrganizationAddressCity/State/ZIP CodePhone Number [facility] [address] [place] [address] [facility] [address] [place] [address] * (ABNORMAL) C-REACTIVE PROTEIN (02/03/2025 4:48 AM EDT) Only the most recent of9 resultswithin the time period is included. ComponentValueRef RangeTest MethodAnalysis TimePerformed AtPathologist Signature CRP11.0(H)<0.9 mg/dL02/03/2025 9:10 AM EDTFAIRVIEW LABORATORYSpecimen (Source) Anatomical Location / LateralityCollection Method / VolumeCollection Time Received TimeBlood (Blood, Venous)02/03/2025 4:48 AM EDT1 8:07 AM EDT Narrative Authorizing ProviderResult TypeResult StatusSnoqualmie [facility]OL[facility] BLOOD ORDERABLESFinal ResultPerforming OrganizationAddressCity/State/ZIP CodePhone Number [facility] [address] [place] [address] [facility] [address] [place] [address] * (ABNORMAL) PHOSPHORUS (02/03/2025 4:48 AM EDT) Only the most recent of6 resultswithin the time period is included. ComponentValueRef RangeTest MethodAnalysis TimePerformed AtPathologist Signature Phosphorus5.1(H)2.7 - 4.8 mg/dL02/03/2025 9:32 AM EDTFAIRVIEW LABORATORYSpecimen (Source)Anatomical Location / LateralityCollection Method / VolumeCollection TimeReceived TimeBlood (Blood, Venous)02/03/2025 4:48 AM EDT1 8:07 AM EDT Narrative Authorizing ProviderResult TypeResult StatusSaman Belem NurAnthony DOL[facility] BLOOD ORDERABLESFinal ResultPerforming OrganizationAddressCity/State/ZIP CodePhone Number [facility] [address] [place] [address] [facility] [address] [place] [address] * MAGNESIUM (02/03/2025 4:48 AM EDT) Only the most recent of7 resultswithin the time period is included. ComponentValueRef RangeTest MethodAnalysis TimePerformed AtPathologist Signature Magnesium1.91.7 - 2.3 mg/dL02/03/2025 9:10 AM EDTFNEWTON-WELLESLEY HOSPITAL LABORATORYSpecimen (Source)Anatomical Location / LateralityCollection Method / VolumeCollection TimeReceived TimeBlood (Blood, Venous)02/03/2025 4:48 AM EDT1 8:07 AM EDT Narrative Authorizing ProviderResult TypeResult StatusJonathan Nurari DOLAB BLOOD ORDERABLESFinal ResultPerforming OrganizationAddressCity/State/ZIP CodePhone Number [facility] [address] [place] [address] [facility] [address] [place] [address] * (ABNORMAL) GAMMA GT (02/03/2025 4:48 AM EDT) Only the most recent of7 resultswithin the time period is included. ComponentValueRef RangeTest MethodAnalysis TimePerformed AtPathologist Signature GGT91(H)10 - 70 U/L1 4:21 PM EDTCAVITA [facility] MA[facility] LABSpecimen (Source)Anatomical Location / LateralityCollection Method / VolumeCollection TimeReceived TimeBlood (Blood, Venous)02/03/2025 4:48 AM EDT1 12:08 PM EDT Narrative Authorizing ProviderResult TypeResult StatusSaman Belem NurAnthony DOL[facility] BLOOD ORDERABLESFinal ResultPerforming OrganizationAddressCity/State/ZIP CodePhone Number [facility] [address] [place] [address] [facility] [address] [place] [address] * (ABNORMAL) COMPREHENSIVE METABOLIC PANEL (02/03/2025 4:48 AM EDT) Only the most recent of7 resultswithin the time period is included. ComponentValueRef RangeTest MethodAnalysis TimePerformed AtPathologist Signature Total Protein6.1(L)6.3 - 8.0 g/dL02/03/2025 9:10 AM EDTFAIRVIEW LABORATORY Albumin2.8(L)3.9 - 4.9 g/dL02/03/2025 9:10 AM EDTFAIRVIEW LABORATORYCalcium8.9 8.5 - 10.2 mg/dL02/03/2025 9:10 AM EDTFAIRVIEW LABORATORYBilirubin, Total0.20.2 - 1.3 mg/dL02/03/2025 9:10 AM EDTFNEWTON-WELLESLEY HOSPITAL LABORATORYAlkaline xaulgaeyppy012(H)38 - 113 U/L1 9:10 AM EDTFAIRVIEW KGFIZDXPENIHM6494 - 40 U/L1 9:10 AM EDTFNEWTON-WELLESLEY HOSPITAL LABORATORYALT (SGPT)2010 - 54 U/L1 9:10 AM EDT [facility] GVTIWCRKECIexilwv9335 - 99 mg/dL02/03/2025 9:10 AM EDTFNEWTON-WELLESLEY HOSPITAL LABORATORYComment: The [place] Diabetes Association (ADA) provides guidance for cutoff [...] Standards of Medical Care in Diabetes 2016, [place] Diabetes Association. Diabetes Care. 2016.39(Suppl 1). BUN53(H)9 - 24 mg/dL02/03/2025 9:10 AM EDTFAIRVIEW LABORATORYCreatinine, Ser1.14 0.73 - 1.22 mg/dL02/03/2025 9:10 AM EDTFAIRVIEW GQPSDAXPMDYpperx620(L)136 - 144 mmol/L1 9:10 AM EDTFAIRVIEW LABORATORYPotassium5.5(H)3.7 - 5.1 mmol/L 02/03/2025 9:10 AM EDTFAIRVIEW NUCOZZNQPWDgspcwnd09(L)98 - 107 mmol/L1 9:10 AM EDTFAIRVIEW SSQEASQZAMOV58803 - 30 mmol/L1 9:10 AM EDTFAIRVIEW LABORATORYAnion Rvr480 - 15 mmol/L1 9:10 AM EDTFAIRVIEW LABORATORY [...] AM EDT Narrative Authorizing ProviderResult TypeResult StatusSadenise Hughesaffari [facility]AB BLOOD ORDERABLESFinal ResultPerforming OrganizationAddressCity/State/ZIP CodePhone Number [facility] [address] [place] [address] [facility] [address] [place] [address] * XR CHEST 1 VWS (01/31/2025 12:03 PM EDT) Only the most recent of3 resultswithin the time period is included. Anatomical RegionLateralityModalityBodyComputed RadiographySpecimen (Source) Anatomical Location / LateralityCollection Method / VolumeCollection Time Received Time01/31/2025 12:03 PM EDT Impressions 01/31/2025 12:44 PM EDT IMPRESSION: Similar appearance of pleural effusions and bibasilar parenchymal opacities. Etl Database Developer: SRINI ?? Transcribe Date/Time: Jan 31 2025 [...] of pleural effusions and bibasilar parenchymal opacities. Etl Database Developer: PSCB Transcribe Date/Time: Jan 31 2025 12:38P Dictated by : DANIEL LACY MD This examination was interpreted and the report reviewed and electronically signed by: DANIEL LACY MD on Jan 31 2025 12:41PM EST Authorizing ProviderResult TypeResult Suzan Cruz [facility] DIAGNOSTIC IMAGING ORDERABLESFinal Result * (ABNORMAL) LIPASE (01/26/2025 5:30 AM EDT)ComponentValueRef RangeTest Method Analysis TimePerformed AtPathologist SqahgupjyJudvja86(L)16 - 61 U/L1 9:45 AM EDTFAIRVIEW LABORATORYSpecimen (Source)Anatomical Location / LateralityCollection Method / VolumeCollection TimeReceived TimeBlood (Blood, Venous)01/26/2025 5:30 AM EDT1 9:07 AM EDT Narrative Authorizing ProviderResult TypeResult Chris Dias DOL[facility] BLOOD ORDERABLESFinal ResultPerforming OrganizationAddressCity/State/ZIP CodePhone Number [facility] [address] [place] [address] [facility] [id number] [place] [address] * (ABNORMAL) AMYLASE (01/26/2025 5:30 AM EDT)ComponentValueRef RangeTest Method Analysis TimePerformed AtPathologist VqfmrgekoRgzkgzb03(L)30 - 104 U/L 01/26/2025 9:45 AM EDTFAIRVIEW LABORATORYSpecimen (Source)Anatomical Location / LateralityCollection Method / VolumeCollection TimeReceived TimeBlood (Blood, Venous)01/26/2025 5:30 AM EDT1 9:07 AM EDT Narrative Authorizing ProviderResult TypeResult StatusJosea K Larissa DOLAB BLOOD ORDERABLESFinal ResultPerforming OrganizationAddressCity/State/ZIP CodePhone Number [facility] [address] [place] [address] [facility] [address] [place] [address] * (ABNORMAL) CBC (01/25/2025 5:50 AM EDT) Only the most recent of2 resultswithin the time period is included. ComponentValueRef RangeTest MethodAnalysis TimePerformed AtPathologist Signature WBC17.25(H)3.70 - 11.00 k/uL01/25/2025 7:08 AM EDTFAIRVIEW LABORATORYRBC2.26(L) 4.20 - 6.00 m/uL01/25/2025 7:08 AM EDTFAIRVIEW LABORATORYHemoglobin7.2(L)13.0 - 17.0 g/dL01/25/2025 7:08 AM EDTFAIRVIEW VRSGVNUYYGFyusgijxpt02.8(L)39.0 - 51.0 % 01/25/2025 7:08 AM EDTFNEWTON-WELLESLEY [facility]OSP[facility] QVTBTZKLVJDKI067.9(H)80.0 - 100.0 fL01/25/2025 7:08 AM EDSA[facility] KBCBLLGCFRSMA59.926.0 - 34.0 pg01/25/2025 7:08 AM EDT [facility] HDYTEQOVFIZCSF65.630.5 - 36.0 g/dL01/25/2025 7:08 AM EDTFNEWTON-WELLESLEY HOSPITAL LABORATORYRDW-CV19.9(H)11.5 - 15.0 %01/25/2025 7:08 AM EDTFAIRVIEW LABORATORY Xnlxaohxy094714 - 400 k/uL01/25/2025 7:08 AM EDTFAIRVIEW DPFXPUKTGIKLT98.39.0 - 12.7 fL01/25/2025 7:08 AM EDTFAIRVIEW LABORATORYAbsolute NRBC<0.01<0.01 k/uL 01/25/2025 7:08 AM EDTFAIRVIEW LABORATORYSpecimen (Source)Anatomical Location / LateralityCollection Method / VolumeCollection TimeReceived TimeBlood (Blood, Venous)01/25/2025 5:50 AM EDT1 6:54 AM EDT Narrative Authorizing ProviderResult TypeResult StatusSaman Belem [facility] BLOOD ORDERABLESFinal ResultPerforming OrganizationAddressCity/State/ZIP CodePhone Number [facility] [address] [place] [address] [facility] [address] [place] [address] * (ABNORMAL) Urinalysis with Microscopic with Reflex to Culture, Routine (01/24/2025 3:10 PM EDT)ComponentValueRef RangeTest MethodAnalysis Time Performed AtPathologist SignatureColorLight LhpkvqKhnggg83/10/2025 4:52 PM EDT [facility] MXDDBRBYAQGklktjsVukyjRlazg37/10/2025 4:52 PM EDTFAIRVIEW LABORATORY Glucose, UrNegativeTrace, Ddysmith12/10/2025 4:52 PM [facility] Bilirubin PljrgQpaglubbMdnraudb08/10/2025 4:52 PM [facility] Ketones, urineNegativeNegative, Trace01/24/2025 4:52 PM [facility] Specific [place], Urine1.0161.005 - 1.3419101/24/2025 4:52 PM EDTFAIRVIEW LABORATORYBlood, UrineNegativeNegative, Trace01/24/2025 4:52 PM EDTFAIRVIEW LABORATORYpH, Urine6.55.0 - 8.010 4:52 PM [facility] Protein, UrNegativeTrace, Dakcigkq59/10/2025 4:52 PM [facility] Urobilinogen, MLRurdvrBrizkp92/10/2025 4:52 PM EDTFAIRVIEW LABORATORYNitrite, BXXqrusdnoPodoshve86/10/2025 4:52 PM EDTFAIRVIEW LABORATORYLeukestNegative Negative, 25 Eder/uL01/24/2025 4:52 PM EDTFAIRVIEW LABORATORYWBC, UA0-5 /HPF0-5 /HPF01/24/2025 4:52 PM EDTFAIRVIEW LABORATORYRBC, UA3-5 /HPF(A)0-3 /HPF 01/24/2025 4:52 PM EDTFAIRVIEW LABORATORYEpithelial Cells, Wet PrepFew/HPF 01/24/2025 4:52 PM EDTFA[facility]VIEW LABORATORYSpecimen (Source)Anatomical Location / LateralityCollection Method / VolumeCollection TimeReceived TimeUrine 01/24/2025 3:10 PM EDT1 4:41 PM EDT Narrative Authorizing ProviderResult TypeResult StatusBetty Dias DOLAB URINE ORDERABLESFinal ResultPerforming OrganizationAddressCity/State/ZIP CodePhone Number [facility] [address] [place] [address] [facility] [address] [place] [address] * CT LUMBAR SPINE WO CONTRAST (01/24/2025 [...] processes versus sequela of prior fractures, unchanged Etl Database Developer: PSCB ?? Transcribe Date/Time: Jan 24 2025 [...] DATE OF EXAM: Jan 24 2025 2:16PM [facility] 0508 - CT LUMBAR SPINE WO [...] processes versus sequela of prior fractures, unchanged Etl Database Developer: SRINI Transcribe Date/Time: Jan 24 2025 4:06P Dictated by : KHLOE DELGADO MD This examination was interpreted and the report reviewed and electronically signed by: KHLOE DELGADO MD on Jan 24 2025 3:21PM EST This document has been addended by: KHLOE DELGADO MD on Jan 24 2025 4:10PM EST Authorizing ProviderResult TypeResult StatusSadenise Cruz [facility] CT ORDERABLES Edited * CT THORACIC SPINE [...] processes versus sequela of prior fractures, unchanged Etl Database Developer: PSCB ?? Transcribe Date/Time: Jan 24 2025 [...] OF EXAM: Jan 24 2025 ??2:16PM ?? [facility] ?? 0514 ??- ??CT THORACIC SPINE [...] DATE OF EXAM: Jan 24 2025 2:16PM [facility] 0514 - CT THORACIC SPINE WO [...] processes versus sequela of prior fractures, unchanged Etl Database Developer: SRINI Transcribe Date/Time: Jan 24 2025 4:06P Dictated by : KHLOE DELGADO MD This examination was interpreted and the report reviewed and electronically signed by: KHLOE DELGADO MD on Jan 24 2025 3:21PM EST This document has been addended by: KHLOE DELGADO MD on Jan 24 2025 4:10PM EST Authorizing ProviderResult TypeResult Suzan Cruz [facility] CT ORDERABLES Edited * Type and screen (01/24/2025 5:28 AM EDT)ComponentValueRef RangeTest Method Analysis TimePerformed AtPathologist SignatureABO HeyxylppW12/10/2025 10:[address] [facility] MAIN BLOOD ZNLVOyGqlsjdjg54/10/2025 10:[address] [facility] MAIN BLOOD BANK Antibody VgalfiMxusangf43/10/2025 10:[address] [facility] MAIN BLOOD BANKType And Screen Ogpiagumxp69/13/2025 23:5901/24/2025 10:[address] [facility] MAIN BLOOD BANK Specimen (Source)Anatomical Location / LateralityCollection Method / Volume Collection TimeReceived TimeBlood (Blood, Venous)01/24/2025 5:28 AM EDT 01/24/2025 10:00 AM EDT Narrative Authorizing ProviderResult TypeResult Suzan Cruz [facility] BLOOD BANK TEST ORDERABLESFinal ResultPerforming OrganizationAddressCity/State/ZIP Code Phone Number [facility] [address] [place] [address] CC MAIN BLOOD BANK [address] [facility] [address] [place] [address] * (ABNORMAL) Sedimentation rate, automated (01/19/2025 11:11 AM EDT)Component ValueRef RangeTest MethodAnalysis TimePerformed AtPathologist RqarnlpgnZTK93 (H)0 - 15 mm/hr01/19/2025 6:46 PM [facility] LABSpecimen (Source)Anatomical Location / LateralityCollection Method / VolumeCollection TimeReceived TimeBlood (Blood, Venous)01/19/2025 11:11 AM EDT1 5:49 PM EDT Narrative Authorizing ProviderResult TypeResult StatusHaris Judy [facility] BLOOD ORDERABLES Final ResultPerforming OrganizationAddressCity/State/ZIP CodePhone Number [facility] [place] [phone] [facility] [address] [place] [address] * POCT glucose (01/18/2025 8:29 PM EDT) Only the most recent of2 resultswithin the time period is included. ComponentValueRef RangeTest MethodAnalysis TimePerformed AtPathologist Signature Glucose Blood, [id number] - 120 mg/dLSM ROCHESpecimen (Source)Anatomical Location / LateralityCollection Method / VolumeCollection TimeReceived TimeBlood 01/18/2025 8:29 PM EDT1 8:29 PM EDT Narrative Authorizing ProviderResult TypeResult StatusProvider Not In SystemLAB POINT OF CARE TEST ORDERABLESFinal ResultPerforming OrganizationAddressCity/State/ZIP CodePhone Number [facility] * X-ray abdomen KUB with OBL or cone (01/17/2025 2:03 PM EDT) Only the most recent of4 resultswithin the time period is included. Anatomical RegionLateralityModalityComputed RadiographySpecimen (Source) Anatomical Location / LateralityCollection Method / VolumeCollection Time Received Time01/17/2025 2:03 PM EDT Impressions 01/17/2025 2:52 PM EDT IMPRESSION: Feeding tube tip within the distal stomach/proximal duodenum. Etl Database Developer: SRINI ?? Transcribe Date/Time: Jan ??3 2024 ??2:49P Dictated by : AMARILIS MACK MD This examination was interpreted and the report reviewed and electronically signed by: AMARILIS MACK MD on Jan ??2024 ??2:50PM ??EST Narrative 01/17/2025 2:52 PM EDT * * *Final Report* * * DATE OF EXAM: Jan?2024 ??2:03PM ?? S0X ?? 5358 ??- ??XR [...] tube tip within the distal stomach/proximal duodenum. Etl Database Developer: PSCB Transcribe Date/Time: Jan 17 2025 2:49P Dictated by : AMARILIS MACK MD This examination was interpreted and the report reviewed and electronically signed by: AMARILIS MACK MD on Jan 17 2025 2:50PM EST Authorizing ProviderResult TypeResult StatusSadenise Belem HughesAnthony [facility] DIAGNOSTIC IMAGING ORDERABLESFinal Result from Last 3 Months Advance Directives * Full Resuscitation (Latest Code Status on File) Date ActivatedDate InactivatedComments01/14/2025 7:15 02/04/2025 5:01 PM QuestionAnswerCommentsI have discussed this order [...] Team MemberRelationshipSpecialtyStart DateEnd Date Rusty Delgado [address] [place] [address] PCP - General09/30/24
--- OUTSIDE RECORDS SUMMARY | 2025-04-07 09:22 | XMS_ITS | Encounter Summary ---
Author Organization [facility] Address [address] [place] [address] Care Team Providers Care Photocopying Equipment Mechanic Name Role Phone Irena Johnson MD Unavailable Vanessa Arora MD Unavailable [phone] Danny WONG MD, Daniel B Primary Care Provider [phone] Carina Ziegler RN Unavailable Unavailable Chelsea Trinidad MD Unavailable [phone] Source Comments In the event this information is protected by the Federal Confidentiality of Alcohol and Drug AbusePatient Records regulations: The Federal rules restrict any use of the information to criminally investigate or prosecute any alcohol or drug abuse patient.[facility] Encounter Details DateTypeDepartmentCare Team (Latest Contact Info)Zxsreimpcgk17/12/2025 Patient Msg Transplant Center [address] [place] [phone] Provider, Ccf Action Required: Missing Lab Results in MyChart Social History Tobacco UseTypesPacks/DayYears UsedDateSmoking Tobacco: AtazdoFrqqbfarvc001 02/18/1971 - 02/18/1991Smokeless Tobacco: NeverAlcohol UseStandard Drinks/Week [...] RecordedIn the past 12 months has the [employer], gas, oil, or water [employer] threatened to shut off services in your home?No11/25/2024rea Deprivation IndexAnswerDate RecordedNational Score (1-100), lower number is lower typi876204/25/2024State Score (1-10), lower number is lower trbv56404/25/2024 Data from: https://www.neighborhoodatlas.medicine.[facility].edu/. 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 on fileNot on filedocumented as of this encounter Functional Status * Are you deaf or do you have serious difficulty hearing?AnswerDate of NsrrkwohgsGmywsvZj80/14/2025 4:27 PM Cecil Jaramillo RN * Are you blind or do you have serious difficulty seeing, even when wearing glasses?AnswerDate of RnqbowltkoOdwcxvYe59/14/2025 4:27 PM Cecil Jaramillo RN * Do you have serious difficulty walking or climbing stairs?AnswerDate of WjrhqdgypiThgqqdUt66/14/2025 4:27 PM Cecil Jaramillo RN * Do you have difficulty dressing or bathing?AnswerDate of AssessmentAuthorNo 05/31/2024 4:27 PM Cecil Jaramillo RN * Because of a physical, mental, or emotional condition, do you have difficulty doing errands alone such as visiting a doctor's office or shopping?AnswerDate of NfsojlaiwzAruswxPa24/14/2025 4:27 PM Cecil Jaramillo RN documented as of this encounter Mental Status * Because of a physical, mental, or emotional condition, do you have serious difficulty concentrating, remembering, or making decisions?AnswerEntry Date YypztqQe19/14/2025 4:27 PM Cecil Jaramillo RN documented in this encounter Plan of Treatment DateTypeDepartmentCare Team (Latest Contact Info)Wlxbpexgskf34/30/2025 11:15 AM ESTAppointment Radiology [address] [address] post liver tx follow up04/15/2025 12:30 PM ESTOffice Visit Transplant Center [address] [address] Kathy Ryan APRN.RN ACCESS [address] [place] [address] post liver tx follow up04/16/2025 1:30 PM [facility] Infectious Disease 9[address] [place] [address] Amanda Franz MD [address]00 [place] [address] CMV Virtual Appt06/11/2025 1:00 PM ESTAppointment Gastroenterology [address] [address] Jane Correia MD 9500 [place] [address] 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]documented as of this encounter Goals GoalPatient Goal TypeAssociated ProblemsRecent ProgressPatient-Stated?Author Blood Pressure < 130/80 Blood Nggxbtck501/71(02/10/2025 12:30 PM EDT)Vanessa Kulkarni, MDdocumented as of this encounter Visit Diagnoses Not on filedocumented in this encounter Care Teams Team MemberRelationshipSpecialtyStart DateEnd Date Rusty Delgado II, MD 112 [facility] 110 [place] [address] PCP - GeneralInternal Medicine05/28/24 Irena Johnson MD 3000 [facility] [address] [facility] [place] [phone] UqviyzymjCfgqcrximlnkacgo80/26/24 Vanessa Arora MD [address]00 [place] [address] Primary Staff PhysicianCardiology05/02/24 Carina Ziegler RN [facility] [address]00 [place] [address] Registered NurseTransplant Center09/17/24 [place] [address] [address] [facility] [address] [place] [address] PhysicianNephrology11/19/24documented as of this encounter
--- OUTSIDE RECORDS SUMMARY | 2025-04-07 09:22 | XMS_ITS | Encounter Summary ---
Author Organization [facility] Address [address] [place] [address] Care Team Providers Care Corn Sheller Name Role Phone Irena Johnson MD Unavailable Vanessa Arora MD Unavailable [phone] Danny WONG MD, Daniel B Primary Care Provider [phone] Carina Ziegler RN Unavailable Unavailable Chelsea Trinidad MD Unavailable [phone] Source Comments In the event this information is protected by the Federal Confidentiality of Alcohol and Drug AbusePatient Records regulations: The Federal rules restrict any use of the information to criminally investigate or prosecute any alcohol or drug abuse patient.[facility] Encounter Details DateTypeDepartmentCare Team (Latest Contact Info)Ejjablthkbr44/17/2025 Patient Msg Transplant Center [address] [place] [phone] Provider, Ccf Social History Tobacco UseTypesPacks/DayYears UsedDateSmoking Tobacco: EzhjniHorqkvbrsj111 02/18/1971 - 02/18/1991Smokeless Tobacco: NeverAlcohol UseStandard Drinks/Week [...] RecordedIn the past 12 months has the [employer], gas, oil, or water [employer] threatened to shut off services in your home?No11/25/2024rea Deprivation IndexAnswerDate RecordedNational Score (1-100), lower number is lower kdff378204/25/2024State Score (1-10), lower number is lower zqhp99304/25/2024 Data from: https://www.neighborhoodatlas.medicine.[facility].edu/. 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 on fileNot on fileNot on filedocumented as of this encounter Functional Status * Are you deaf or do you have serious difficulty hearing?AnswerDate of BuhkrwigfqQgmxqhFi37/14/2025 4:27 PM Cecil Jaramillo RN * Are you blind or do you have serious difficulty seeing, even when wearing glasses?AnswerDate of CsjxyeivzfRcteubZy36/14/2025 4:27 PM Cecil Jaramillo RN * Do you have serious difficulty walking or climbing stairs?AnswerDate of QbriwmfnngWgwyjuAd13/14/2025 4:27 PM Cecil Jaramillo RN * Do you have difficulty dressing or bathing?AnswerDate of AssessmentAuthorNo 05/31/2024 4:27 PM Cecil Jaramillo RN * Because of a physical, mental, or emotional condition, do you have difficulty doing errands alone such as visiting a doctor's office or shopping?AnswerDate of UcopmoxyvuEpipajDa90/14/2025 4:27 PM Cecil Jaramillo RN documented as of this encounter Mental Status * Because of a physical, mental, or emotional condition, do you have serious difficulty concentrating, remembering, or making decisions?AnswerEntry Date PhwyowYk33/14/2025 4:27 PM Cecil Jaramillo RN documented in this encounter Plan of Treatment DateTypeDepartmentCare Team (Latest Contact Info)Nldshkhwjvv56/30/2025 11:15 AM ESTAppointment Radiology [address] [address] post liver tx follow up04/15/2025 12:30 PM ESTOffice Visit Transplant Center [address] [address] Kathy Ryan, NEON SIGN MECHANIC.BUTTON STATION WORKER [address] [place] [address] - [address] [address] post liver tx follow up04/16/2025 1:30 PM Infectious Disease 9300 [place] [address] Amanda Franz MD [address]00 [place] [address] CMV Virtual Appt06/11/2025 1:00 PM ESTAppointment Gastroenterology [address] [address] Jane Correia MD [address] [place] [address] 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]documented as of this encounter Goals GoalPatient Goal TypeAssociated ProblemsRecent ProgressPatient-Stated?Author Blood Pressure < 130/80 Blood Vvfaqicg219/71(02/10/2025 12:30 PM EDT)Vanessa Kulkarni, MDdocumented as of this encounter Visit Diagnoses Diagnosis Liver replaced by transplant (HCC)- Primary Liver replaced by transplant documented in this encounter Care Teams Team MemberRelationshipSpecialtyStart DateEnd Date Rusty Delgado II, MD 112 [facility] 110 [place] [address] PCP - GeneralInternal Medicine05/28/24 Irena Johnson MD 3000 [facility] 1620 [facility] [place] [phone] JgeurkttnZnrvqidssfuvugjc80/26/24 Vanessa Arora MD [address]00 [place] [address] Primary Staff PhysicianCardiology05/02/24 Carina Ziegler, [facility] 9500 [place] [address] Registered NurseTransplant Center09/17/24 [place] [address] [address] [place] [phone] PhysicianNephrology11/19/24documented as of this encounter
--- OUTSIDE RECORDS SUMMARY | 2025-04-07 09:22 | XMS_ITS | Encounter Summary ---
Author Organization [facility] Address [address] [place] [address] Care Team Providers Care Bed Machine Operator Name Role Phone Irena Johnson MD Unavailable Vanessa Arora MD Unavailable [phone] Danny WONG MD, Rusty Gomez Primary Care Provider [phone] Carina Ziegler RN Unavailable Unavailable Chelsea Trinidad MD Unavailable Source Comments In the event this information is protected by the Federal Confidentiality of Alcohol and Drug AbusePatient Records regulations: The Federal rules restrict any use of the information to criminally investigate or prosecute any alcohol or drug abuse patient.[facility] Reason for Referral * Diagnostic Procedure Only (Urgent) - AuthorizedSpecialtyDiagnoses / Procedures Referred By ContactReferred To ContactUS IMAGING Diagnoses Liver replaced by transplant (HCC) Procedures US DOPPLER COMPLETE DUP-SCAN ARTL EDY ABDL/PEL/SCROT&/RPR ORGN COM Kathy Ryan APRN.FLAT HAMMERER [address] [place] [address] Phone: tel: fax: [place] [facility] [place] [address] Referral IDStatusReasonStart DateExpiration DateVisits RequestedVisits [id number] Auto-Generated Referral * Diagnostic Procedure Only (Urgent) - AuthorizedSpecialtyDiagnoses / Procedures Referred By ContactReferred To ContactUS IMAGING Diagnoses Liver replaced by transplant (HCC) Procedures US ABD LIVER VASCULAR US ABDOMINAL REAL TIME W/IMAGE LIMITED DUP-SCAN ARTL EDY ABDL/PEL/SCROT&/RPR ORGN COM Kathy Ryan APRN.CNP 2048 [place] [address] Phone: tel: fax: [facility] [place] [phone] Referral IDStatusReasonStart DateExpiration DateVisits RequestedVisits [id number] Auto-Generated Referral Encounter Details DateTypeDepartmentCare Team (Latest Contact Info)Kfxaydzfetw55/17/2025 Patient Msg Transplant Center 2048 [place] [address] Provider, Ccf Social History Tobacco UseTypesPacks/DayYears UsedDateSmoking Tobacco: RhpeuhDurbprpwvc156 02/18/1971 - 02/18/1991Smokeless Tobacco: NeverAlcohol UseStandard Drinks/Week [...] RecordedIn the past 12 months has the [employer], gas, oil, or water [employer] threatened to shut off services in your home?No11/25/2024rea Deprivation IndexAnswerDate RecordedNational Score (1-100), lower number is lower cory785104/25/2024State Score (1-10), lower number is lower fjxu84304/25/2024 Data from: https://www.neighborhoodatlas.medicine.[facility].edu/. 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 on fileNot on filedocumented as of this encounter Functional Status * Are you deaf or do you have serious difficulty hearing?AnswerDate of BzunatsjnkKrdeznKp68/14/2025 4:27 PM Cecil Jaramillo RN * Are you blind or do you have serious difficulty seeing, even when wearing glasses?AnswerDate of XrgwsgrdvhHudljxLb42/14/2025 4:27 PM Cecil Jaramillo RN * Do you have serious difficulty walking or climbing stairs?AnswerDate of DkjnnsikucSdxbdkBx50/14/2025 4:27 PM Cecil Jaramillo RN * Do you have difficulty dressing or bathing?AnswerDate of AssessmentAuthorNo 05/31/2024 4:27 PM Cecil Jaramillo RN * Because of a physical, mental, or emotional condition, do you have difficulty doing errands alone such as visiting a doctor's office or shopping?AnswerDate of BbgvtexyegBihlzdZz95/14/2025 4:27 PM Cecil Jaramillo RN documented as of this encounter Mental Status * Because of a physical, mental, or emotional condition, do you have serious difficulty concentrating, remembering, or making decisions?AnswerEntry Date GdhjwwSc16/14/2025 4:27 PM Cecil Jaramillo RN documented in this encounter Plan of Treatment DateTypeDepartmentCare Team (Latest Contact Info)Ekesycsvsmz16/30/2025 11:15 AM ESTAppointment Radiology [address] [address] post liver tx follow up04/15/2025 12:30 PM ESTOffice Visit Transplant Center [address] [address] Kathy Ryan, WEIGH BOSS.FLAT HAMMERER [address] [address] post liver tx follow up04/16/2025 1:30 [facility] 9300 [place] [address] Amanda Franz MD 9500 [place] [address] CMV Virtual Appt02/ 1:00 PM ESTAppointment Gastroenterology [address] [address] Jane Correia MD 6279 [place] [address] 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]NameTypePriorityAssociated DiagnosesOrder ScheduleUS ABD LIVER VASCULARRadiologyASAP Liver replaced by transplant (HCC) Expected: 04/08/2025, Expires: 05/02/2026US DOPPLER COMPLETERadiologyASAP Liver replaced by transplant (HCC) Expected: 04/08/2025, Expires: 05/02/2026documented as of this encounter Goals GoalPatient Goal TypeAssociated ProblemsRecent ProgressPatient-Stated?Author Blood Pressure < 130/80 Blood Lyzojtyl863/71(02/10/2025 12:30 PM EDT)Vanessa Kulkarni, MDdocumented as of this encounter Visit Diagnoses Diagnosis Liver replaced by transplant (HCC)- Primary Liver replaced by transplant documented in this encounter Care Teams Team MemberRelationshipSpecialtyStart DateEnd Date Rusty Delgado II, MD 112 [facility] 110 [place] [address] PCP - GeneralInternal Medicine05/28/24 Irena Johnson MD 3000 [facility] 1620 [facility] [place] [address] KuuzkyyquJfvyjeklwfniiclf79/26/24 Vanessa Arora MD 2538 [place] [address] Primary Staff PhysicianCardiology05/02/24 Carina Ziegler RN [facility] 9500 [place] [address] Registered NurseTransplant Center09/17/24 [place] [address] [address] [place] [address] PhysicianNephrology11/19/24documented as of this encounter
[2025-04-07 09:43] VITALS: BP 105/77; PULSE 92; TEMP 36.5; O2SAT 98
[2025-04-07 10:18] VITALS: BP 136/80; PULSE 74; O2SAT 95
[2025-04-07 10:19] VITALS: BP 126/83; PULSE 74; O2SAT 96
[2025-04-07] MEDS: BUPIVACAINE HCL 0.25% PF 25 MG/10 ML VIAL 8 ML INJ (10:20)
--- NOTE | 2025-04-07 10:27 | W.PM.PROCNOT ---
Date of procedure: 04/07/25 Pre-op diagnosis: Pain due to thoracic spondylosis without myelopathy Post-op diagnosis: same as pre-op Procedure: Procedure: Bilateral T6-7, 7-8 medial branch block Medications: Bupivacaine 0.25% 6cc The patient was seen and examined in the preoperative holding area.? The informed consent was obtained and placed on the chart.? The patient was brought to the medical procedure unit and placed in the prone position.? A timeout was completed verifying correct patient, procedure site, positioning, plan, and special equipment.? Using aseptic technique, the needle was placed at left T6.? Under direct fluoroscopic visualization, a Quincke tip needle was advanced to the midpoint of the waist of the articular pillar at the respective medial branch segment. The above-mentioned injectate was placed in a 1 mL aliquot proceeded by negative aspiration.? The needle was removed.? The procedure was completed at all left T7, 8. The same procedure, at the same levels, was then completed on the right side. Insertion site was covered.? Patient was taken to the postprocedural recovery area and monitored for an appropriate length of time before found suitable for discharge in the accompaniment of a responsible adult. Anesthesia: Local Surgeon: Andrea Sosa Pathology: none sent Condition: stable Disposition: no change
== END 2025-04-07 10:28 | disposition home or self-care (01) ==
PROVIDERS: PCP Internal Medicine; Visit Provider Anesthesiology
DX: M47.814 Spondylosis without myelopathy or radiculopathy, thoracic region (principal); G89.29 Other chronic pain
CPT/HCPCS: 64490; 64491; J0665

== ENCOUNTER 2025-04-14 10:35 | Outpatient (OUT) | payer MEDICARE, SELFPAY ==
--- NOTE | 2025-04-14 11:23 | PM.CN ---
Consult Note: HPI Data of Consult Patient: known to practice within the last 3 years Consult date: 04/14/25 Requesting Physician: Andrea Sosa MD Primary Care Provider: SANJAY ROBLEDO Consult Narrative Reason for consult: midback pain Narrative: 69yom who presents for assessment. did not have much relief after recent thoracic medial branch block. continues to have significant pain in midback, uses oxycodone mostly tid prn. activity severely limited by pain. 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) ?K75.81 - Nonalcoholic steatohepatitis (JARAMILLO) (ICD-10) ?K74.60 - Unspecified cirrhosis of liver (ICD-10) Esophageal varices ?I85.00 - Esophageal varices without bleeding (ICD-10) Hyponatremia ?E87.1 - Hypo-osmolality and hyponatremia (ICD-10) Metabolic syndrome X ?E88.810 - Metabolic syndrome (ICD-10) Incisional hernia ?K43.2 - Incisional hernia without obstruction or gangrene (ICD-10) GERD (gastroesophageal reflux disease) ?K21.9 - Gastro-esophageal reflux disease without esophagitis (ICD-10) Weight loss ?R63.4 - Abnormal weight loss (ICD-10) Barretts esophagus ?K22.70 - Tipton's esophagus without dysplasia (ICD-10) Pleural effusion, bilateral ?J90 - Pleural effusion, not elsewhere classified (ICD-10) Surgical History H/O cataract removal with insertion of prosthetic lens ?Z98.49 - Cataract extraction status, unspecified eye (ICD-10) ?Z96.1 - Presence of intraocular lens (ICD-10) Status post thoracentesis ?Z98.890 - Other specified postprocedural states (ICD-10) S/P abdominal paracentesis ?Z98.890 - Other specified postprocedural states (ICD-10) Hx of cholecystectomy ?Z90.49 - Acquired absence of other specified parts of digestive tract (ICD-10) H/O colonoscopy ?Z98.890 - Other specified postprocedural states (ICD-10) H/O esophagogastroduodenoscopy ?Z98.890 - Other specified postprocedural states (ICD-10) Family History Mother Family history of COPD (chronic obstructive pulmonary disease) Family history of hypertension Father Family history of hypertension Social History Within the past year, how often did you have a drink containing alcohol: never Within the past year, how often did you have six or more drinks on one occasion: never Score interpretation: A score less than 4 is consistent with normal alcohol consumption. 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 Highest level of school completed/degree received: high school graduate Are you now , , , , never or living with a partner: In a typical week, how many times do you talk on the telephone with family, friends, or neighbors: once per week How often do you get together with friends or relatives: once per week How often do you attend alevism or baptist services: never Do you belong to any clubs or organizations such as alevism groups unions, fraternal or athletic groups, or school groups: no Total score: 1 Score interpretation: A score of less than or equal to 1 indicates the most socially isolated. Little interest or pleasure in doing things: not at all Feeling down, depressed, or hopeless: not at all Feel stressed/tense/nervous/anxious/difficulty sleeping: not at all Meds Home Medications and Allergies Home Medications ?Medication ?Instructions ?Recorded ?Confirmed ?Type multivitamin 1 tab PO DAILY 10/03/23 04/07/25 History magnesium oxide 400 mg PO TID 11/19/24 04/07/25 History mirtazapine 7.5 mg tablet 7.5 mg PO BEDTIME 11/19/24 04/07/25 History sulfamethoxazole 800 1 tab PO .COMPLEX 11/19/24 04/07/25 History mg-trimethoprim 160 mg tablet tacrolimus 5 mg capsule, 5 mg PO Q12H 11/19/24 04/07/25 History immediate-release ursodiol 300 mg capsule 300 mg PO Q8H 11/19/24 04/07/25 History acetaminophen 500 mg tablet 500 mg PO TID PRN pain 03/06/25 04/07/25 History (Tylenol Extra Strength) furosemide 20 mg tablet (Lasix) 20 mg PO DAILY 03/06/25 04/07/25 History melatonin 5 mg capsule mg 03/06/25 History methocarbamol 500 mg tablet 500 mg PO TID 03/06/25 04/07/25 History oxycodone myristate 9 mg capsule 9 mg PO BID PRN pain #60 caps 04/14/25 Rx sprinkle extended release 12 hr(DON'T CRUSH) (Xtampza ER) Allergies Allergy/AdvReac Type Severity Reaction Status Date / Time buprenorphine AdvReac Severe Agitated Verified 04/07/25 09:42 Exam Narrative Exam Narrative: Psych-alert and oriented x 3. Attentive and appropriate, constitutionally normal, displays normal mood and affect per situation.? There are no obvious deficits in memory, reasoning, or intellect.? Skin-no obvious rashes, bruising, erythema noted to the patient's area of pain. Extremities- extremities are warm with minimal edema and palpable pulses. Thoracic - tenderness to palpation noted in the thoracic spine and paraspinal musculature.? Pain is elicited with extension. Range of motion is slightly diminished with these motions due to pain. Coordination remains intact.? Gait remains non-antalgic. Assessment and Plan Assessment and Plan (1) Failed back syndrome: (2) Thoracic spondylosis: (3) Thoracic stenosis: Plan 69yom who presents for assessment. has now failed thoracic epidural and medial branch block. imaging of thoracic spine indicates fusion from t8-l3, as well as multilevel severe foraminal stenosis. discussed that my interventional options were limited at this point, given his history. recommended that he follow up with dr fajardo for surgical consideration vs scs trial. provided him with info about scs. will let me know if he wants to go down that road. meds reviewed. will discontinue oxycodone and trial xtampza 9mg bid prn. follow up in 4-6 weeks.
== END 2025-04-14 10:36 | disposition home or self-care (01) ==
PROVIDERS: PCP Internal Medicine; Visit Provider Anesthesiology
DX: M96.1 Postlaminectomy syndrome, not elsewhere classified (principal); M47.814 Spondylosis without myelopathy or radiculopathy, thoracic region; M48.04 Spinal stenosis, thoracic region
CPT/HCPCS: G0463